=== PATIENT | male | born 1970 | race American Indian/Alaskan Native ===

== ENCOUNTER 2020-05-09 12:15 | Inpatient (IN) | payer BC, OTHER, SELFPAY ==
[2020-05-09] MEDS ORDERED: SODIUM CHLORIDE 0.9% 1000 ML IV SOLN IV ONE (12:45)
[2020-05-09] MEDS ORDERED: dexAMETHasone 20 MG/5 ML VIAL IV ONE (12:46)
[2020-05-09] MEDS ORDERED: ACETAMINOPHEN 500 MG TAB PO ONE (12:46)
--- NOTE | 2020-05-09 12:52 | Emergency Department Report ---
ED Shortness of Breath HPI - General Chief Complaint: Dyspnea/Respdistress Stated Complaint: WEAKNESS,TACYCARDIA Time Seen by Provider: 05/09/20 12:32 Source: EMS Mode of arrival: Wheelchair Limitations: No Limitations - History of Present Illness Initial Comments: Patient is 50 years old male with no significant past medical history. Patient brought to the emergency room via EMS from home for evaluation of shortness of breath, difficulty breathing and generalized weakness for the last 5 days. Patient found to have oxygen saturation of 76% on room air improved to 86% on 4 L. Patient stated that he was diagnosed with COVID-19 2 days ago. Patient found to be febrile with a temperature of 103, tachycardic with oxygen saturation of 88% on nonrebreather. Sepsis protocol immediately initiated and patient started on high flow oxygen, normal saline and Tylenol. MD Complaint: shortness of breath, cough -: days(s) (5) Severity: moderate Improves With: oxygen Context: recent URI Treatments Prior to Arrival: oxygen - Related Data Home Medications Medication Instructions Recorded Confirmed Last Taken No Known Home Medications [No 05/09/20 05/09/20 Unknown Reported Home Medications] Allergies Allergy/AdvReac Type Severity Reaction Status Date / Time No Known Allergies Allergy Unverified 05/09/20 14:23 ED Review of Systems ROS: Stated complaint: WEAKNESS,TACYCARDIA Other details as noted in HPI Comment: All other systems reviewed and negative Constitutional: denies: chills, fever Respiratory: cough, shortness of breath, SOB with exertion. denies: wheezing Cardiovascular: palpitations. denies: chest pain Gastrointestinal: denies: abdominal pain, nausea, vomiting Musculoskeletal: denies: back pain Neurological: weakness. denies: numbness, paresthesias, confusion, abnormal gait ED Past Medical Hx - Past Medical History Previous Medical History?: No - Social History Smoking Status: Never Smoker Substance Use Type: None - Medications Home Medications: Home Medications Medication Instructions Recorded Confirmed Last Taken Type No Known Home Medications [No 05/09/20 05/09/20 Unknown History Reported Home Medications] ED Physical Exam - General Limitations: No Limitations General appearance: alert, in distress - Head Head exam: Present: atraumatic, normocephalic, normal inspection - Eye Eye exam: Present: normal appearance, PERRL - ENT ENT exam: Present: mucous membranes dry - Neck Neck exam: Present: normal inspection, full ROM. Absent: tenderness, meningismus - Respiratory Respiratory exam: Present: respiratory distress, rales. Absent: wheezes, rhonchi, stridor, accessory muscle use, decreased breath sounds, prolonged expiratory - Cardiovascular Cardiovascular Exam: Present: tachycardia - GI/Abdominal GI/Abdominal exam: Present: soft, normal bowel sounds. Absent: distended, tenderness, guarding, rebound, rigid, organomegaly, mass, bruit, pulsatile mass, hernia - Extremities Exam Extremities exam: Present: normal inspection, full ROM, normal capillary refill. Absent: tenderness, pedal edema, calf tenderness - Back Exam Back exam: Present: normal inspection, full ROM. Absent: CVA tenderness (R), CVA tenderness (L) - Neurological Exam Neurological exam: Present: alert, oriented X3, CN II-XII intact, normal gait, reflexes normal - Psychiatric Psychiatric exam: Present: normal mood - Skin Skin exam: Present: warm, intact, normal color ED Course Vital Signs 05/09/20 05/09/20 05/09/20 12:34 12:37 12:45 Temperature 102.7 F H 102.7 F H Pulse Rate 130 H 133 H Respiratory 30 H 32 H Rate Blood Pressure Blood Pressure 107/55 [Right] O2 Sat by Pulse 80 L 63 L 88 Oximetry 05/09/20 05/09/20 05/09/20 13:01 13:31 14:15 Temperature Pulse Rate 127 H 118 H 113 H Respiratory 28 H 50 H 43 H Rate Blood Pressure 102/55 100/59 100/60 Blood Pressure [Right] O2 Sat by Pulse 94 91 86 Oximetry 05/09/20 05/09/20 05/09/20 14:31 15:45 16:01 Temperature Pulse Rate 108 H 105 H 105 H Respiratory 21 40 H 45 H Rate Blood Pressure 105/64 109/64 109/64 Blood Pressure [Right] O2 Sat by Pulse 91 87 89 Oximetry 05/09/20 05/09/20 05/09/20 16:11 16:21 16:31 Temperature Pulse Rate 105 H 106 H 104 H Respiratory 43 H 47 H 50 H Rate Blood Pressure 109/64 109/64 109/64 Blood Pressure [Right] O2 Sat by Pulse 89 87 87 Oximetry 05/09/20 05/09/20 05/09/20 16:41 16:51 17:01 Temperature Pulse Rate 104 H 104 H 104 H Respiratory 45 H 45 H 45 H Rate Blood Pressure 109/64 109/64 109/64 Blood Pressure [Right] O2 Sat by Pulse 90 90 91 Oximetry ED Medical Decision Making - Lab Data Result diagrams: 05/10/20 10:32 05/10/20 10:32 - Radiology Data Radiology results: report reviewed - Medical Decision Making Patient is 50 years old male with no significant past medical history. Patient brought to the emergency room via EMS from home for evaluation of shortness of breath, difficulty breathing and generalized weakness for the last 5 days. Patient found to have oxygen saturation of 76% on room air improved to 86% on 4 L. Patient stated that he was diagnosed with COVID-19 2 days ago. Patient found to be febrile with a temperature of 103, tachycardic with oxygen saturation of 88% on nonrebreather. Sepsis protocol immediately initiated and patient started on high flow oxygen, normal saline and Tylenol. Chest x-ray showed patchy infiltrates on both lungs consistent with infectious process. Patient started on Rocephin and Zithromax. Patient received normal saline. Patient also given Decadron 10 mg IV. I discussed the patient with Dr. Houser, he agreed to admit the patient to medical service for further management. Critical Care Time: Yes Critical care time in (mins) excluding proc time.: 30 Critical care attestation.: If time is entered above; I have spent that time in minutes in the direct care of this critically ill patient, excluding procedure time. ED Disposition Clinical Impression: Acute respiratory failure due to COVID-19, Bilateral pneumonia, Acute renal failure Disposition: OP ADMIT IP TO THIS HOSP Is pt being admited?: Yes Condition: Stable
[2020-05-09 13:08] LABS: Basophils % (Auto) 0.4 % (0.0-1.8); Hemoglobin 14.4 gm/dl (11.8-15.2); Lymphocytes # (Auto) 0.8 K/mm3 (1.2-5.4); Lymphocytes % (Auto) 6.9 % (13.4-35.0); Mean Corpuscular HGB Conc 35 % (32-34); Mean Corpuscular Volume 96 fl (84-94); Monocytes # (Auto) 0.6 K/mm3 (0.0-0.8); Monocytes % (Auto) 5.2 % (0.0-7.3); Platelet Count 231 K/mm3 (140-440); Red Blood Count 4.28 M/mm3 (3.65-5.03); Red Cell Distribution Width 13.2 % (13.2-15.2)
[2020-05-09] MEDS ORDERED: cefTRIAXone/NS 1 GM/50 ML 1 GM/50 ML BAG IV ONE (13:10)
[2020-05-09] MEDS ORDERED: AZITHROMYCIN 500 MG in SODIUM CHLORIDE 0.9% 250ML 250 ML IV ONE (13:10)
--- NOTE | 2020-05-09 13:18 | XRay Report ---
CHEST 1 VIEW 05/09/2020 12:48 PM INDICATION / CLINICAL INFORMATION: Dyspnea. COMPARISON: None available. FINDINGS: SUPPORT DEVICES: None. HEART / MEDIASTINUM: No significant abnormality. LUNGS / PLEURA: There are patchy hazy bilateral pulmonary opacities. No pneumothorax. ADDITIONAL FINDINGS: No significant additional findings. IMPRESSION: 1. Patchy hazy bilateral pulmonary opacities could reflect developing infectious process versus edema . Signer Name: Lance Lynch MD Signed: 05/09/2020 1:13 PM Workstation Name: [id number]
[2020-05-09 13:27] LABS: Calcium 8.4 mg/dL (8.4-10.2)
[2020-05-09 13:31] LABS: Bilirubin,Direct 1.7 mg/dL (0-0.2)
--- NOTE | 2020-05-09 13:36 | History and Physical Report ---
History of Present Illness Chief complaint: I cannot breathe History of present illness: 50 YO Male with Obesity, ETOH Dependence presents to ED for evaluation. Patient states that he has experienced shortness of breath, generalized weakness, fatigue, malaise, body aches, decreased exercise tolerance over the past 5 days with persistently worsening symptoms over the same timeframe. EMS was notified and upon arrival the patient was found to be in distress with a pulse oximetry of 76% on room air as well as fever to 103 F. Patient was placed on supplemental oxygen and subsequently transported to [facility] for further care and evaluation. Patient seen and evaluated in the emergency department. All lab and imaging studies reviewed. Patient underwent chest x-ray and was found to have bilateral pneumonia. Patient also found to have a pulse oximetry of 86% on 4 L nasal cannula. Patient initiated on a high flow submental oxygen with improvement of pulse oximetry. Patient admitted to medical floor and initiated on pneumonia protocol as well as COVID-19 protocol. Patient also found to have acute kidney injury as well as elevated liver function test suspected secondary to alcohol dependence. Patient denies chills, chest pain, palpitations, skin rash, recent ill contacts. Patient reports being diagnosed with coronavirus 2 days ago. No prior admission for review. No medication listed at time of admis lili for reconciliation. Past History Past Medical History: other (See HPI) Past Surgical History: No surgical history, Other (Reviewed) Social history: single, alcohol abuse Family history: diabetes, hypertension Medications and Allergies Allergies Allergy/AdvReac Type Severity Reaction Status Date / Time No Known Allergies Allergy Unverified 05/09/20 14:23 Active Meds: Active Medications Azithromycin 500 mg/ Sodium (Chloride) 250 mls @ 250 mls/hr IV ONCE ONE; Protocol Stop: 05/09/20 14:09 Ceftriaxone Sodium (Rocephin/Ns 1 Gm/50 Ml) 1 gm in 50 mls @ 100 mls/hr IV ONCE ONE; Protocol Stop: 05/09/20 13:39 Review of Systems Constitutional: fever, fatigue, weakness, malaise, lethargy Ears, nose, mouth and throat: no ear pain, no ear discharge, no tinnitis, no decreased hearing, no nose pain Cardiovascular: no chest pain, no orthopnea, no palpitations, no rapid/irregular heart beat Respiratory: cough, cough with sputum, shortness of breath, no hemoptysis Gastrointestinal: no abdominal pain, no nausea, no vomiting, no diarrhea, no constipation Genitourinary Male: no hematuria, no flank pain, no discharge, no urinary frequency, no urinary hesitancy Rectal: no pain, no incontinence, no bleeding Musculoskeletal: no neck stiffness, no neck pain, no shooting arm pain, no arm n umbness/tingling, no low back pain, no shooting leg pain Integumentary: no rash, no pruritis, no redness, no sores, no wounds Neurological: no head injury, no transient paralysis, no paralysis, no weakness, no parathesias, no numbness, no tingling Psychiatric: no anxiety, no memory loss, no change in sleep habits, no insomnia, no hypersomnia Endocrine: no cold intolerance, no heat intolerance, no polyphagia, no excessive thirst, no polyuria, no nocturia Hematologic/Lymphatic: no easy bruising, no easy bleeding, no lymphadenopathy, no lymphedema Allergic/Immunologic: no urticaria, no allergic rhinitis, no persistent infections, no anaphylaxis Exam - Constitutional Vitals: Temp Pulse Resp BP Pulse Ox 102.7 F H 127 H 28 H 102/55 94 05/09/20 12:45 05/09/20 13:01 05/09/20 13:01 05/09/20 13:01 05/09/20 13:01 General appearance: Present: mild distress, obese - EENT Eyes: Present: PERRL ENT: hearing intact, clear oral mucosa - Neck Neck: Present: supple, normal ROM - Respiratory Respiratory effort: labored, accessory muscle use Respiratory: bilateral: diminished, rhonchi - Cardiovascular Heart Sounds: Present: S1 & S2. Absent: rub, click - Extremities Extremities: pulses symmetrical, No edema Peripheral Pulses: within normal limits - Abdominal General gastrointestinal: Present: soft, non-tender, non-distended, normal bowel sounds Male genitourinary: Present: normal - Integumentary Integumentary: Present: clear, warm, dry - Musculoskeletal Musculoskeletal: generalized weakness - Psychiatric Psychiatric: appropriate mood/affect, intact judgment & insight, agitated - Neurologic Neurologic: CNII-XII intact, moves all extremities Results - Labs CBC & Chem 7: 05/09/20 12:59 05/09/20 14:20 Labs: Abnormal lab results 1105/09/20 05/09/20 Range/Units 12:59 12:59 12:59 WBC 11.8 H (4.5-11.0) K/mm3 MCV 96 H (84-94) fl MCH 34 H (28-32) pg MCHC 35 H (32-34) % Lymph % (Auto) 6.9 L (13.4-35.0) % Lymph # (Auto) 0.8 L (1.2-5.4) K/mm3 Seg Neutrophils % 87.5 H (40.0-70.0) % Seg Neutrophils # 10.3 H (1.8-7.7) K/mm3 D-Dimer (0-234) ng/mlDDU Sodium 130 L (137-145) mmol/L Potassium 3.5 L (3.6-5.0) mmol/L Chloride 86.4 L (98-107) mmol/L BUN 33 H (9-20) mg/dL Creatinine 2.3 H (0.8-1.3) mg/dL Glucose 156 H (75-100) mg/dL Lactic Acid (0.7-2.0) mmol/L Total Bilirubin 3.40 H (0.1-1.2) mg/dL Direct Bilirubin 1.7 H (0-0.2) mg/dL AST 385 H (5-40) units/L ALT 134 H (7-56) units/L Albumin 3.0 L (3.9-5) g/dL 05/09/20 05/09/20 05/09/20 Range/Units 12:59 12:59 12:59 WBC (4.5-11.0) K/mm3 MCV (84-94) fl MCH (28-32) pg MCHC (32-34) % Lymph % (Auto) (13.4-35.0) % Lymph # (Auto) (1.2-5.4) K/mm3 Seg Neutrophils % (40.0-70.0) % Seg Neutrophils # (1.8-7.7) K/mm3 D-Dimer 3242.51 H (0-234) ng/mlDDU Sodium (137-145) mmol/L Potassium (3.6-5.0) mmol/L Chloride (98-107) mmol/L BUN (9-20) mg/dL Creatinine (0.8-1.3) mg/dL Glucose 158 H (75-100) mg/dL Lactic Acid 3.50 H* (0.7-2.0) mmol/L Total Bilirubin (0.1-1.2) mg/dL Direct Bilirubin (0-0.2) mg/dL AST (5-40) units/L ALT (7-56) units/L Albumin (3.9-5) g/dL Assessment and Plan - Patient Problems (1) Acute hypoxemic respiratory failure Current Visit: Yes Status: Acute Plan to address problem: Supplemental oxygen, nebulizer therapy, pulse oximetry, chest x-ray, high flow supplemental oxygen, noninvasive positive pressure ventilation as clinically indicated (2) Bilateral pneumonia Current Visit: Yes Status: Acute Plan to address problem: Pneumonia protocol: Chest x-ray, CBC, CMP, supplemental oxygen, nebulizer therapy, IV antibiotic therapy, blood culture, (3) Suspected 2019 novel coronavirus infection Current Visit: Yes Status: Acute Plan to address problem: Coronavirus protocol: IV steroid therapy, IV antibiotic therapy, coronavirus PCR ordered and is pending at time of admission, isolation precautions, contact precautions, prone positioning while in bed, ambulation 3 times daily and as needed, pulmonary toilet. (4) Acute kidney injury (SEN) with acute tubular necrosis (ATN) Current Visit: Yes Status: Acute Plan to address problem: BMP, monitor urine output every shift, supportive care, encourage free water intake. Monitor fluid balance to avoid fluid overload in patient with suspected coronavirus infection. (5) Alcohol dependence Current Visit: Yes Status: Acute Qualifiers: Substance use status: uncomplicated Qualified Code(s): F10.20 - Alcohol dependence, uncomplicated Plan to address problem: Thiamine, folic acid, multivitamin, CIWA protocol. (6) Elevated liver function tests Current Visit: Yes Status: Acute Plan to address problem: Suspected secondary to alcoholic liver disease. Supportive care, alcohol cessation, patient counseled. (7) DVT prophylaxis Current Visit: Yes Status: Acute Plan to address problem: SCD to bilateral lower extremities while in bed, hold anticoagulation now due to elevated liver function test.
[2020-05-09] MEDS ORDERED: ONDANSETRON 4 MG/2 ML INJ IV PRN (13:37)
[2020-05-09 14:57] LABS: C-Reactive Protein 33.5 mg/dL (0.00-1.30)
[2020-05-09] MEDS ORDERED: THIAMINE 100 MG TAB PO ONE (15:36)
[2020-05-09] MEDS ORDERED: MULTIVITAMINS ,THERAPEUTIC TAB PO ONE ×2 (15:36→16:05)
[2020-05-09] MEDS ORDERED: methylPREDNISolone Sod Succinate 40 MG/1 ML INJ ONE (16:05)
[2020-05-09] MEDS ORDERED: FOLIC ACID 1 MG TAB ONE (16:05)
[2020-05-09] MEDS ORDERED: THIAMINE 100 MG TAB ONE (16:07)
[2020-05-09] MEDS: methylPREDNISolone Sod Succinate 40 MG/1 ML INJ IV SCH (16:09)
[2020-05-09] MEDS: FOLIC ACID 1 MG TAB PO SCH (16:09)
[2020-05-10] MEDS: methylPREDNISolone Sod Succinate 40 MG/1 ML INJ IV SCH ×4 (00:29→23:44)
[2020-05-10 05:15] LABS: Bacteria,Urine 1+ /HPF (Negative); Bilirubin,Urine NEG (Negative); Blood,Urine LG (Negative); Color,Urine Amber (Yellow); Mucus,Urine FEW /HPF
[2020-05-10] MEDS ORDERED: cefTRIAXone/NS 2 GM/100 ML 2 GM/100 ML BAG IV SCH (10:00)
[2020-05-10] MEDS: FOLIC ACID 1 MG TAB PO SCH (10:18)
[2020-05-10 11:00] LABS: Hematocrit 43.2 % (35.5-45.6); Hemoglobin 14.7 gm/dl (11.8-15.2); Mean Corpuscular HGB Conc 34 % (32-34); Mean Corpuscular Volume 97 fl (84-94); Platelet Count 248 K/mm3 (140-440); Red Blood Count 4.44 M/mm3 (3.65-5.03); Red Cell Distribution Width 13.1 % (13.2-15.2)
[2020-05-10 11:15] LABS: Calcium 8.4 mg/dL (8.4-10.2)
[2020-05-10] MEDS ORDERED: AZITHROMYCIN 500 MG in SODIUM CHLORIDE 0.9% 250ML 250 ML IV SCH (12:00)
[2020-05-10 12:28] LABS: Band Neutrophils # (Manual) 0.2 K/mm3; Basophils % (Manual) 0 % (0.0-1.8); Eosinophils % (Manual) 0 % (0.0-4.3); Platelet Clumps Rare; Platelet Estimate Consistent w Auto; RBC Morphology Normal; Total Cells Counted 100
[2020-05-10] MEDS ORDERED: REMDESIVIR 200 MG in SODIUM CHLORIDE 0.9% 250ML 250 ML IV ONE ×2 (15:07→17:00)
--- NOTE | 2020-05-10 16:28 | Progress Note ---
Assessment and Plan -- Acute hypoxemic respiratory failure Cont Supplemental oxygen, nebulizer therapy, due to COVID 19 PNA consult pulmonary -- Novel coronavirus infection with Bilateral pneumonia Coronavirus protocol: IV steroid therapy, IV remdesivir, isolation precautions, contact precautions, prone positioning while in bed, pulmonary toilet. consulted ID --Sepsis, due to COVID 19 PNA cont to treat for COVID -- Acute kidney injury (SEN) likely vasomotor nephropathy cont iv fluid, monitor BMP if no improvement consult Renal -- Alcohol dependence Thiamine, folic acid, multivitamin, CIWA protocol. -- Elevated liver function tests Suspected secondary to alcoholic liver disease. Supportive care, alcohol cessation, patient counseled. -- DVT prophylaxis prophylactic AC with lovenox for elevated D-dimer Brief History: 50 YO Male with Obesity, ETOH Dependence presents to ED for evaluation for shortness of breath, generalized weakness, fatigue, malaise, body aches, decreased exercise tolerance over the past 5 days. EMS was notified and upon arrival the patient was found to be in distress with a pulse oximetry of 76% on room air as well as fever to 103 F. In the ER chest x-ray and was found to have bilateral pneumonia. Patient admitted to medical floor and initiated on pneumonia protocol as well as COVID-19 protocol. Patient reports being diagnosed with coronavirus 2 days ago. 05/10: follow inflammatory markers, consult ID. patient on high flow O2 Subjective Date of service: 05/10/20 Interval history: Patient seen and examined patient on high flow O2 denies chest pain positive for covid 19 Objective - Exam Narrative Exam: General appearance: Present: mild distress, obese - EENT Eyes: Present: PERRL ENT: hearing intact, clear oral mucosa - Neck Neck: Present: supple, normal ROM - Respiratory Respiratory effort: labored, accessory muscle use Respiratory: bilateral: diminished, rhonchi - Cardiovascular Heart Sounds: Present: S1 & S2. Absent: rub, click - Extremities Extremities: pulses symmetrical, No edema Peripheral Pulses: within normal limits - Abdominal General gastrointestinal: Present: soft, non-tender, non-distended, normal bowel sounds Male genitourinary: Present: normal - Integumentary Integumentary: Present: clear, warm, dry - Musculoskeletal Musculoskeletal: generalized weakness - Psychiatric Psychiatric: appropriate mood/affect, intact judgment & insight, agitated - Neurologic Neurologic: CNII-XII intact, moves all extremities - Constitutional Vitals: Vital Signs - 12hr 05/10/20 05/10/20 05/10/20 05:32 05:34 06:09 Temperature 98.9 F Pulse Rate 89 Respiratory 20 Rate Blood Pressure 107/71 O2 Sat by Pulse 96 Oximetry 05/10/20 05/10/20 05/10/20 08:46 11:59 14:41 Temperature 98.3 F Pulse Rate 100 H Respiratory 20 Rate Blood Pressure 129/69 O2 Sat by Pulse 89 91 89 Oximetry - Labs CBC & Chem 7: 05/10/20 10:32 05/10/20 10:32 Labs: Abnormal lab results 05/09/20 05/10/20 05/10/20 Range/Units 15:56 10:32 10:32 WBC 15.4 H (4.5-11.0) K/mm3 MCV 97 H (84-94) fl MCH 33 H (28-32) pg RDW 13.1 L (13.2-15.2) % Seg Neuts % (Manual) 89.0 H (40.0-70.0) % Lymphocytes % (Manual) 8.0 L (13.4-35.0) % Seg Neutrophils # Man 13.7 H (1.8-7.7) K/mm3 POC ABG pO2 57.3 L (83-108) mmHg ABG Oxyhemoglobin 86.3 L (94-98) ABG Sodium 129.9 L (136.0-145.0) mmol/L ABG Glucose 146 H (65-95) mg/dL Sodium 136 L (137-145) mmol/L Chloride 97.4 L (98-107) mmol/L BUN 37 H (9-20) mg/dL Creatinine 1.7 H (0.8-1.3) mg/dL Glucose 209 H (75-100) mg/dL Arterial Blood Glucose 146 H (65-95) mg/dL Arterial Blood Ionized Calcium 3.9 L (4.6-5.3) mg/dL Urine WBC (Auto) (0.0-6.0) /HPF Coronavirus (PCR) (Negative) 05/10/20 05/10/20 Range/Units Unknown Unknown WBC (4.5-11.0) K/mm3 MCV (84-94) fl MCH (28-32) pg RDW (13.2-15.2) % Seg Neuts % (Manual) (40.0-70.0) % Lymphocytes % (Manual) (13.4-35.0) % Seg Neutrophils # Man (1.8-7.7) K/mm3 POC ABG pO2 (83-108) mmHg ABG Oxyhemoglobin (94-98) ABG Sodium (136.0-145.0) mmol/L ABG Glucose (65-95) mg/dL Sodium (137-145) mmol/L Chloride (98-107) mmol/L BUN (9-20) mg/dL Creatinine (0.8-1.3) mg/dL Glucose (75-100) mg/dL Arterial Blood Glucose (65-95) mg/dL Arterial Blood Ionized Calcium (4.6-5.3) mg/dL Urine WBC (Auto) 11.0 H (0.0-6.0) /HPF Coronavirus (PCR) Positive A (Negative)
[2020-05-10] MEDS: SODIUM CHLORIDE 0.9% 50 ML IVPB IV SCH (17:25)
[2020-05-10 20:30] LABS: C-Reactive Protein 24.8 mg/dL (0.00-1.30)
[2020-05-10] MEDS ORDERED: REMDESIVIR 100 MG in SODIUM CHLORIDE 0.9% 250ML 250 ML IV SCH (21:00)
[2020-05-10] MEDS ORDERED: ENOXAPARIN 100 MG/1 ML INJ SUB-Q SCH (22:00)
[2020-05-10] MEDS: ENOXAPARIN 120 MG/0.8 ML INJ SUB-Q SCH (22:30)
--- NOTE | 2020-05-11 07:18 | Consultation ---
History of Present Illness - Reason for Consult Consult date: 05/11/20 COVID Requesting physician: ROSARIO SCHNEIDER - History of Present Illness 50 years old male with history of alcohol dependence, obesity, admitted on 05/09/2020 due to 5-day history of generalized malaise, fatigue, body aches, dyspnea on exertion, cough and shortness of breath. Patient tested positive for COVID-19 2 days before admission. Patient denies any contact with COVID-19 patients. On arrival, temperature 102.7, HR 130, BP 107/55, RR 30, O2 sat down to 80%, then 63%, patient is currently on high flow nasal cannula. Creatinine 2.2. Initial D-dimer 3242, now > 10,000. Ferritin 38,000. AST 388 5. ALT 134. CRP 39. LDH 2166. Lactate 3.5. Procalcitonin 4.4. Chest x-ray shows patchy bilateral infiltrates. SARS-CoV-2 PCR positive. Blood cultures 04/08/2020 no growth today. Review of Systems: reviewed ED and H&P notes. Limited due to PPE conservation strategy Past History Past Medical History: other (See HPI) Past Surgical History: No surgical history, Other (Reviewed) Social history: single, alcohol abuse Family history: diabetes, hypertension Medications and Allergies Allergies Allergy/AdvReac Type Severity Reaction Status Date / Time No Known Allergies Allergy Unverified 05/09/20 14:23 Home Medications Medication Instructions Recorded Confirmed Last Taken Type No Known Home Medications [No 05/09/20 05/09/20 Unknown History Reported Home Medications] Active Meds: Active Medications Acetaminophen (Tylenol) 650 mg PO Q4H PRN PRN Reason: Pain MILD(1-3)/Fever >100.5/KERR Enoxaparin Sodium (Enoxaparin) 110 mg 1 mg/kg (110 mg) SUB-Q Q12HR [facility]; Protocol Last Admin: 05/10/20 22:30 Dose: 110 mg Documented by: Folic Acid (Folvite) 1 mg PO QDAY DESIRE Last Admin: 05/10/20 10:18 Dose: 1 mg Documented by: REMDESIVIR 100 mg/ Sodium (Chloride) 250 mls @ 500 mls/hr IV Q24HR@2100 DESIRE Stop: 05/14/20 21:29 Lorazepam (Ativan) 2 mg IV Q1HR PRN PRN Reason: CIWA-Ar 8-15 Methylprednisolone Sodium Succinate (Solu-Medrol) 40 mg IV Q8H [facility] Last Admin: 05/10/20 23:44 Dose: 40 mg Documented by: Ondansetron HCl (Zofran) 4 mg IV Q8H PRN PRN Reason: Nausea And Vomiting Sodium Chloride (Sodium Chloride Flush Syringe 10 Ml) 10 ml IV BID [facility] Last Admin: 05/10/20 22:53 Dose: 10 ml Documented by: Sodium Chloride (Sodium Chloride Flush Syringe 10 Ml) 10 ml IV PRN PRN PRN Reason: LINE FLUSH Sodium Chloride (Nacl 0.9%) 50 ml IV Q24HR@2100 [facility] Stop: 05/14/20 21:01 Last Admin: 05/10/20 17:25 Dose: 50 ml Documented by: Physical Examination - Physical Exam Narrative exam: Physical Exam: reviewed ED and hospitalist notes, limited due to conservation of PPE and decrease risk of transmission. General appearance: limited due to conservation of PPE Eyes: limited due to conservation of PPE HENT: Atraumatic; limited due to conservation of PPE Lungs: limited due to conservation of PPE CV: limited due to conservation of PPE Abdomen: limited due to conservation of PPE Extremities: limited due to conservation of PPE Skin: limited due to conservation of PPE Psych: limited due to conservation of PPE Neuro: limited due to conservation of PPE - Constitutional Vitals: Vital Signs Temp Pulse Resp BP Pulse Ox 98.5 F 98 H 18 119/66 90 05/11/20 03:54 05/11/20 03:54 05/11/20 03:54 05/11/20 03:54 05/11/20 06:21 Temperature -Last 24 Hours Temperature 98.5 F Temperature 98.1 F Temperature 98.3 F Temperature 98.3 F Results - Labs CBC & Chem 7: 05/10/20 10:32 05/10/20 10:32 Labs: Abnormal lab results 05/10/20 05/10/20 05/10/20 Range/Units 10:32 10:32 18:50 WBC 15.4 H (4.5-11.0) K/mm3 MCV 97 H (84-94) fl MCH 33 H (28-32) pg RDW 13.1 L (13.2-15.2) % Seg Neuts % (Manual) 89.0 H (40.0-70.0) % Lymphocytes % (Manual) 8.0 L (13.4-35.0) % Seg Neutrophils # Man 13.7 H (1.8-7.7) K/mm3 D-Dimer (0-234) ng/mlDDU Sodium 136 L (137-145) mmol/L Chloride 97.4 L (98-107) mmol/L BUN 37 H (9-20) mg/dL Creatinine 1.7 H (0.8-1.3) mg/dL Glucose 209 H (75-100) mg/dL Ferritin > 2000.0 H (30.0-300.0) ng/mL Lactate Dehydrogenase (91-180) units/L C-Reactive Protein (0.00-1.30) mg/dL Coronavirus (PCR) (Negative) 05/10/20 05/10/20 05/10/20 Range/Units 18:50 19:00 Unknown WBC (4.5-11.0) K/mm3 MCV (84-94) fl MCH (28-32) pg RDW (13.2-15.2) % Seg Neuts % (Manual) (40.0-70.0) % Lymphocytes % (Manual) (13.4-35.0) % Seg Neutrophils # Man (1.8-7.7) K/mm3 D-Dimer > 29830 H (0-234) ng/mlDDU Sodium (137-145) mmol/L Chloride (98-107) mmol/L BUN (9-20) mg/dL Creatinine (0.8-1.3) mg/dL Glucose (75-100) mg/dL Ferritin (30.0-300.0) ng/mL Lactate Dehydrogenase 1879 H (91-180) units/L C-Reactive Protein 24.80 H (0.00-1.30) mg/dL Coronavirus (PCR) Positive A (Negative) Assessment and Plan Cultures: Blood culture 04/28/2020 no growth today SARS CoV2 PCR positive Assessment: 50 years old male with history of alcohol dependence and obesity admitted on 05/09/2020 due to 5-day history of generalized malaise, fatigue, body aches, dyspnea exertion, cough and shortness of breath, tested positive for COVID-19 2 days before admission: #Severe sepsis: Present on admission with high fever, tachycardia, hypotension, hypoxia, elevated lactate, SEN; likely due to bilateral pneumonia. #Severe COVID pneumonia: Chest x-ray with bilateral patchy infiltrates. SARS-CoV-2 PCR positive. Inflammatory markers markedly elevated, D-dimer 10,000, ferritin 38,000. Noted elevated procalcitonin likely due to elevated creatinine, however will cover for bacterial component given severe sepsis. #Acute hypoxemic respiratory failure: O2 sats dropped to 63% on admission, currently on high flow nasal cannula 100%, 40 L. #Elevated LFTs: from COVID, however no higher than 10 times normal. #SEN: from COVID, already improving. Recommendations: -Close monitoring consider ICU vs IMCU transfer -Pulmonary consult -Obtain SARS CoV-2 IgG if negative please order COVID convalescent plasma -order stat -Patient started on Solu-Medrol -Patient started on remdesivir total 5 days -Monitor inflammatory markers - ferritin, Ddimer, CRP, LDH -Start ceftriaxone and azithromycin given severe sepsis -Monitor liver function test on Remdesivir -Continue anticoagulation per System Protocol -continue full dose anticoagulation given elevated D-dimer -Obtain lower extremity ultrasound -Consider VQ scan when stable -Prone positioning as possible Very high risk for deterioration and mortality All laboratory, cultures and imaging were reviewed. Will follow Arcelia Acosta MD Infectious Diseases Sales Order Coordinator [facility] ([facility]) M [phone] O [phone]
[2020-05-11] MEDS: methylPREDNISolone Sod Succinate 40 MG/1 ML INJ IV SCH ×3 (08:47→23:22)
[2020-05-11 09:17] LABS: C-Reactive Protein 12.9 mg/dL (0.00-1.30)
[2020-05-11 09:18] LABS: Alanine Aminotransferase 111 units/L (7-56); BUN/Creatinine Ratio 28; Bilirubin,Direct 0.6 mg/dL (0-0.2); Blood Urea Nitrogen 36 mg/dL (9-20); Calcium 8.3 mg/dL (8.4-10.2); Hemolysis Index 2
--- NOTE | 2020-05-11 09:56 | Consultation ---
History of Present Illness Consult date: 05/11/20 Reason for consult: dyspnea, cough History of present illness: 50 years old male with history of alcohol dependence, obesity, admitted on 05/09/2020 due to 5-day history of generalized malaise, fatigue, body aches, dyspnea on exertion, cough and shortness of breath. Patient tested positive for COVID-19 2 days before admission. Patient denies any contact with COVID-19 patients. On arrival, temperature 102.7, HR 130, BP 107/55, RR 30, O2 sat down to 80%, then 63%, patient is currently on high flow nasal cannula. Creatinine 2.2. Initial D-dimer 3242, now > 10,000. Ferritin 38,000. AST 388 5. ALT 134. CRP 39. LDH 2166. Lactate 3.5. Procalcitonin 4.4. Chest x-ray shows patchy bilateral infiltrates. SARS-CoV-2 PCR positive. Blood cultures 04/08/2020 no growth today. Patient alert, awake. Patient is on Vapotherm, FIO2 100% and O2 saturation running 90%. No acute respiratory distress at rest. Patient afebrile and has leukocytosis. Patient is on REMDESIVIR, Methyprednisone, ceftrioxane and zithromax and S/C Lovenox. Patient has no known allergies. Denies smoking. Worked [employer] before retired. Not and has 4 children. Past History Past Medical History: other (See HPI) Past Surgical History: No surgical history, Other (Reviewed) Social history: single, alcohol abuse Family history: diabetes, hypertension Medications and Allergies Allergies Allergy/AdvReac Type Severity Reaction Status Date / Time No Known Allergies Allergy Unverified 05/09/20 14:23 Home Medications Medication Instructions Recorded Confirmed Last Taken Type No Known Home Medications [No 05/09/20 05/09/20 Unknown History Reported Home Medications] Active Meds: Active Medications Acetaminophen (Tylenol) 650 mg PO Q4H PRN PRN Reason: Pain MILD(1-3)/Fever >100.5/KERR Enoxaparin Sodium (Enoxaparin) 110 mg 1 mg/kg (110 mg) SUB-Q Q12HR [facility]; Protocol Last Admin: 05/10/20 22:30 Dose: 110 mg Documented by: Folic Acid (Folvite) 1 mg PO QDAY DESIRE Last Admin: 05/10/20 10:18 Dose: 1 mg Documented by: REMDESIVIR 100 mg/ Sodium (Chloride) 250 mls @ 500 mls/hr IV Q24HR@2100 DESIRE Stop: 05/14/20 21:29 Ceftriaxone Sodium (Rocephin/Ns 2 Gm/100 Ml) 2 gm in 100 mls @ 200 mls/hr IV Q24HR [facility]; Protocol Azithromycin 500 mg/ Sodium (Chloride) 250 mls @ 250 mls/hr IV Q24HR [facility]; Protocol Stop: 05/16/20 09:59 Lorazepam (Ativan) 2 mg IV Q1HR PRN PRN Reason: CIWA-Ar 8-15 Methylprednisolone Sodium Succinate (Solu-Medrol) 40 mg IV Q8H [facility] Last Admin: 05/11/20 08:47 Dose: 40 mg Documented by: Ondansetron HCl (Zofran) 4 mg IV Q8H PRN PRN Reason: Nausea And Vomiting Sodium Chloride (Sodium Chloride Flush Syringe 10 Ml) 10 ml IV BID [facility] Last Admin: 05/10/20 22:53 Dose: 10 ml Documented by: Sodium Chloride (Sodium Chloride Flush Syringe 10 Ml) 10 ml IV PRN PRN PRN Reason: LINE FLUSH Sodium Chloride (Nacl 0.9%) 50 ml IV Q24HR@2100 [facility] Stop: 05/14/20 21:01 Last Admin: 05/10/20 17:25 Dose: 50 ml Documented by: Review of Systems All systems: negative Physical Examination Vital signs: Vital Signs Pulse Ox 80 L 05/09/20 12:34 General appearance: no acute distress, alert Eyes: non-icteric ENT: oropharynx moist Neck: supple, no JVD Effort: mildly labored Ascultation: Bilateral: diminished breath sounds Cardiovascular: regular rate and rhythm Gastrointestinal: normoactive bowel sounds, soft, non-tender Integumentary: normal Extremities: no cyanosis, no edema Musculoskeletal: no deformities Gait: other (Resting in bed.) normal mental status, non-focal exam, pupils equal and round, CN II-XII normal mood appropriate Results - Laboratory Findings CBC and BMP: 05/10/20 10:32 05/11/20 07:30 ABG ABG pH 7.428 (7.320-7.450) 05/09/20 15:56 POC ABG pCO2 34.0 mmHg (32.0-48.0) 05/09/20 15:56 POC ABG pO2 57.3 mmHg (83-108) L 05/09/20 15:56 POC ABG HCO3 22.0 05/09/20 15:56 PT/INR, D-dimer D-Dimer > 2000 ng/mlDDU (0-234) H 05/11/20 07:30 Abnormal lab findings: Abnormal Labs 05/09/20 05/09/20 05/09/20 12:59 12:59 12:59 WBC 11.8 H MCV 96 H MCH 34 H MCHC 35 H RDW Lymph % (Auto) 6.9 L Lymph # (Auto) 0.8 L Seg Neutrophils % 87.5 H Seg Neuts % (Manual) Lymphocytes % (Manual) Seg Neutrophils # 10.3 H Seg Neutrophils # Man D-Dimer POC ABG pO2 ABG Oxyhemoglobin ABG Sodium ABG Glucose Sodium 130 L Potassium 3.5 L Chloride 86.4 L BUN 33 H Creatinine 2.3 H Glucose 156 H Lactic Acid Calcium Ferritin Total Bilirubin 3.40 H Direct Bilirubin 1.7 H AST 385 H ALT 134 H Lactate Dehydrogenase C-Reactive Protein Albumin 3.0 L Arterial Blood Glucose Arterial Blood Ionized Calcium Urine WBC (Auto) Coronavirus (PCR) 05/09/20 05/09/20 05/09/20 12:59 12:59 12:59 WBC MCV MCH MCHC RDW Lymph % (Auto) Lymph # (Auto) Seg Neutrophils % Seg Neuts % (Manual) Lymphocytes % (Manual) Seg Neutrophils # Seg Neutrophils # Man D-Dimer 3242.51 H POC ABG pO2 ABG Oxyhemoglobin ABG Sodium ABG Glucose Sodium Potassium Chloride BUN Creatinine Glucose 158 H Lactic Acid 3.50 H* Calcium Ferritin Total Bilirubin Direct Bilirubin AST ALT Lactate Dehydrogenase 2166 H C-Reactive Protein 39.00 H Albumin Arterial Blood Glucose Arterial Blood Ionized Calcium Urine WBC (Auto) Coronavirus (PCR) 05/09/20 05/09/20 05/09/20 12:59 14:20 14:20 WBC MCV MCH MCHC RDW Lymph % (Auto) Lymph # (Auto) Seg Neutrophils % Seg Neuts % (Manual) Lymphocytes % (Manual) Seg Neutrophils # Seg Neutrophils # Man D-Dimer 2861.78 H POC ABG pO2 ABG Oxyhemoglobin ABG Sodium ABG Glucose Sodium Potassium Chloride BUN Creatinine Glucose Lactic Acid 2.20 H* Calcium Ferritin 76872.0 H Total Bilirubin Direct Bilirubin AST ALT Lactate Dehydrogenase C-Reactive Protein Albumin Arterial Blood Glucose Arterial Blood Ionized Calcium Urine WBC (Auto) Coronavirus (PCR) 05/09/20 05/09/20 05/09/20 14:20 14:20 15:56 WBC MCV MCH MCHC RDW Lymph % (Auto) Lymph # (Auto) Seg Neutrophils % Seg Neuts % (Manual) Lymphocytes % (Manual) Seg Neutrophils # Seg Neutrophils # Man D-Dimer POC ABG pO2 57.3 L ABG Oxyhemoglobin 86.3 L ABG Sodium 129.9 L ABG Glucose 146 H Sodium Potassium Chloride BUN Creatinine Glucose 143 H Lactic Acid Calcium Ferritin 16783.0 H Total Bilirubin Direct Bilirubin AST ALT Lactate Dehydrogenase 1953 H C-Reactive Protein 33.50 H Albumin Arterial Blood Glucose 146 H Arterial Blood Ionized Calcium 3.9 L Urine WBC (Auto) Coronavirus (PCR) 05/10/20 05/10/20 05/10/20 10:32 10:32 18:50 WBC 15.4 H MCV 97 H MCH 33 H MCHC RDW 13.1 L Lymph % (Auto) Lymph # (Auto) Seg Neutrophils % Seg Neuts % (Manual) 89.0 H Lymphocytes % (Manual) 8.0 L Seg Neutrophils # Seg Neutrophils # Man 13.7 H D-Dimer POC ABG pO2 ABG Oxyhemoglobin ABG Sodium ABG Glucose Sodium 136 L Potassium Chloride 97.4 L BUN 37 H Creatinine 1.7 H Glucose 209 H Lactic Acid Calcium Ferritin > 2000.0 H Total Bilirubin Direct Bilirubin AST ALT Lactate Dehydrogenase C-Reactive Protein Albumin Arterial Blood Glucose Arterial Blood Ionized Calcium Urine WBC (Auto) Coronavirus (PCR) 05/10/20 05/10/20 05/10/20 18:50 19:00 Unknown WBC MCV MCH MCHC RDW Lymph % (Auto) Lymph # (Auto) Seg Neutrophils % Seg Neuts % (Manual) Lymphocytes % (Manual) Seg Neutrophils # Seg Neutrophils # Man D-Dimer > 78495 H POC ABG pO2 ABG Oxyhemoglobin ABG Sodium ABG Glucose Sodium Potassium Chloride BUN Creatinine Glucose Lactic Acid Calcium Ferritin Total Bilirubin Direct Bilirubin AST ALT Lactate Dehydrogenase 1879 H C-Reactive Protein 24.80 H Albumin Arterial Blood Glucose Arterial Blood Ionized Calcium Urine WBC (Auto) 11.0 H Coronavirus (PCR) 05/10/20 05/11/20 05/11/20 Unknown 07:30 07:30 WBC MCV MCH MCHC RDW Lymph % (Auto) Lymph # (Auto) Seg Neutrophils % Seg Neuts % (Manual) Lymphocytes % (Manual) Seg Neutrophils # Seg Neutrophils # Man D-Dimer > 2000 H POC ABG pO2 ABG Oxyhemoglobin ABG Sodium ABG Glucose Sodium Potassium Chloride 96.3 L BUN 36 H Creatinine Glucose 161 H Lactic Acid Calcium 8.3 L Ferritin Total Bilirubin 1.50 H Direct Bilirubin 0.6 H AST 178 H ALT 111 H Lactate Dehydrogenase C-Reactive Protein Albumin 3.0 L Arterial Blood Glucose Arterial Blood Ionized Calcium Urine WBC (Auto) Coronavirus (PCR) Positive A 05/11/20 07:30 WBC MCV MCH MCHC RDW Lymph % (Auto) Lymph # (Auto) Seg Neutrophils % Seg Neuts % (Manual) Lymphocytes % (Manual) Seg Neutrophils # Seg Neutrophils # Man D-Dimer POC ABG pO2 ABG Oxyhemoglobin ABG Sodium ABG Glucose Sodium Potassium Chloride BUN Creatinine Glucose Lactic Acid Calcium Ferritin Total Bilirubin Direct Bilirubin AST ALT Lactate Dehydrogenase 1523 H C-Reactive Protein 12.90 H Albumin Arterial Blood Glucose Arterial Blood Ionized Calcium Urine WBC (Auto) Coronavirus (PCR) - Diagnostic Findings Chest x-ray: report reviewed, image reviewed Additional studies: CHEST 1 VIEW 05/09/2020 12:48 PM INDICATION / CLINICAL INFORMATION: Dyspnea. COMPARISON: None available. FINDINGS: SUPPORT DEVICES: None. HEART / MEDIASTINUM: No significant abnormality. LUNGS / PLEURA: There are patchy hazy bilateral pulmonary opacities. No pneumothorax. ADDITIONAL FINDINGS: No significant additional findings. IMPRESSION: 1. Patchy hazy bilateral pulmonary opacities could reflect developing infectious process versus edema. Assessment and Plan 50 years old male with history of alcohol dependence, obesity, admitted on 05/09/2020 due to 5-day history of generalized malaise, fatigue, body aches, dyspnea on exertion, cough and shortness of breath. Patient tested positive for COVID-19 2 days before admission. Patient denies any contact with COVID-19 patients. On arrival, temperature 102.7, HR 130, BP 107/55, RR 30, O2 sat down to 80%, then 63%, patient is currently on high flow nasal cannula. Creatinine 2.2. Initial D-dimer 3242, now > 10,000. Ferritin 38,000. AST 388 5. ALT 134. CRP 39. LDH 2166. Lactate 3.5. Procalcitonin 4.4. Chest x-ray shows patchy bilateral infiltrates. SARS-CoV-2 PCR positive. Blood cultures 04/08/2020 no growth today. Patient alert, awake. Patient is on Vapotherm, FIO2 100% and O2 saturation running 90%. No acute respiratory distress at rest. Patient afebrile and has leukocytosis. Patient is on REMDESIVIR, Methyprednisone, ceftrioxane and zithromax and S/C Lovenox. Patient has no known allergies. Denies smoking. Worked [employer] before retired. Not and has 4 children. - Patient Problems (1) Acute respiratory failure due to COVID-19 Current Visit: Yes Status: Acute Plan to address problem: Recommend Non rebreathing Mask with, FIO2 100% Recommend transfered momitored unit or IC. Continue I/V solumedrol. Convert aerosol treatments to metered dose inhalers. Continue ceftrioxane and zithromax. Continue S/C Lovenox. Continue remdesivir. (2) Bilateral pneumonia Current Visit: Yes Status: Acute Plan to address problem: Continue ceftrioxane and Zithromax. (3) Acute kidney injury (SEN) with acute tubular necrosis (ATN) Current Visit: Yes Status: Acute Plan to address problem: Management as per nephrology. (4) Alcohol dependence Current Visit: Yes Status: Acute Qualifiers: Substance use status: uncomplicated Qualified Code(s): F10.20 - Alcohol dependence, uncomplicated Plan to address problem: Management as per primary care. (5) Elevated liver function tests Current Visit: Yes Status: Acute Plan to address problem: Liver enzymes elevated either from his alcoholic abuse or from COVID 19 infection.
[2020-05-11] MEDS ORDERED: AZITHROMYCIN 500 MG in SODIUM CHLORIDE 0.9% 250ML 250 ML IV SCH (10:00)
[2020-05-11] MEDS ORDERED: AZITHROMYCIN 250 MG TAB PO SCH (10:00)
[2020-05-11] MEDS: FOLIC ACID 1 MG TAB PO SCH (10:09)
[2020-05-11] MEDS: ENOXAPARIN 120 MG/0.8 ML INJ SUB-Q SCH ×2 (10:10→21:46)
[2020-05-11] MEDS ORDERED: FLU VACC QUAD 2020-2021 (6 months +)/PF 60 0.5 ML SYRINGE IM ONE (12:00)
--- NOTE | 2020-05-11 12:10 | Progress Note ---
Assessment and Plan Assessment and plan: -- Acute hypoxemic respiratory failure; Requiring very high flow oxygen Patient has severe COVID-19 bilateral pneumonia Very high inflammatory markers Critically ill with poor prognosis Cont Supplemental oxygen, nebulizer therapy, due to COVID 19 PNA, pulmonary following Pulmonary and ID recommend transfer the patient to ICU for close observation -- Novel coronavirus infection with Bilateral pneumonia Coronavirus protocol: IV steroid therapy, IV remdesivir, isolation precautions, contact precautions, prone positioning while in bed, pulmonary toilet. consulted ID --Severe sepsis, due to COVID 19 PNA cont to treat for COVID -- Acute kidney injury (SEN) , likely vasomotor nephropathy cont iv fluid, monitor BMP, creatinine levels trending down Normal range today, closely monitor if no improvement consult Renal -- Alcohol dependence Thiamine, folic acid, multivitamin, CIWA protocol. -- Elevated liver function tests Suspected secondary to alcoholic liver disease. Supportive care, alcohol cessation, patient counseled. -- DVT prophylaxis prophylactic AC with lovenox for elevated D-dimer We will closely monitor patient and adjust management as needed Plan of care reviewed with the patient and his nurse I also discussed with case management regarding discharge planning Brief History: 50 YO Male with Obesity, ETOH Dependence presents to ED for evaluation for shortness of breath, generalized weakness, fatigue, malaise, body aches, decreased exercise tolerance over the past 5 days. EMS was notified and upon arrival the patient was found to be in distress with a pulse oximetry of 76% on room air as well as fever to 103 F. Patient was noted to have severe COVID-19 bilateral pneumonia, severely hypoxemic with very poor prognosis Patient also has very high inflammatory markers, continue high flow oxygen, will try to transfer to ICU or IMCU for close observation I checked with ICU charge nurse Ms. Rodríguez and requested transfer of this patient to ICU or IMCU History Interval history: I have seen and examined the patient at the bedside today Patient's chart and current medications reviewed Isolation precautions observed, PPE protocols strictly followed Patient is critically ill looking, in mild distress Severe COVID-19 pneumonia Severe hypoxia, requiring continuous high flow oxygen Vital signs noted Hospitalist Physical - Constitutional Vitals: Temp Pulse Resp BP Pulse Ox 98.6 F 98 H 17 116/64 98 05/11/20 11:17 05/11/20 11:17 05/11/20 11:17 05/11/20 11:17 05/11/20 11:17 General appearance: Present: mild distress, well-nourished, obese, other (Hypoxic on high flow oxygen) - EENT Eyes: Present: PERRL, EOM intact - Neck Neck: Present: supple, normal ROM - Respiratory Respiratory effort: normal Respiratory: bilateral: diminished, rhonchi, other, negative: rales, wheezing - Cardiovascular Rhythm: regular Heart Sounds: Present: S1 & S2 - Extremities Extremities: no ischemia, No edema - Abdominal General gastrointestinal: soft, non-tender, non-distended, normal bowel sounds - Integumentary Integumentary: Present: clear, warm - Psychiatric Psychiatric: appropriate mood/affect, cooperative - Neurologic Neurologic: moves all extremities Results - Labs CBC & Chem 7: 05/10/20 10:32 05/11/20 07:30 Labs: Laboratory Last Values WBC 15.4 K/mm3 (4.5-11.0) H 05/10/20 10:32 RBC 4.44 M/mm3 (3.65-5.03) 05/10/20 10:32 Hgb 14.7 gm/dl (11.8-15.2) 05/10/20 10:32 Hct 43.2 % (35.5-45.6) 05/10/20 10:32 MCV 97 fl (84-94) H 05/10/20 10:32 MCH 33 pg (28-32) H 05/10/20 10:32 MCHC 34 % (32-34) 05/10/20 10:32 RDW 13.1 % (13.2-15.2) L 05/10/20 10:32 Plt Count 248 K/mm3 (140-440) 05/10/20 10:32 Lymph % (Auto) 6.9 % (13.4-35.0) L 05/09/20 12:59 [place] % (Auto) 5.2 % (0.0-7.3) 05/09/20 12:59 Eos % (Auto) 0.0 % (0.0-4.3) 05/09/20 12:59 Baso % (Auto) 0.4 % (0.0-1.8) 05/09/20 12:59 Lymph # (Auto) 0.8 K/mm3 (1.2-5.4) L 05/09/20 12:59 [place] # (Auto) 0.6 K/mm3 (0.0-0.8) 05/09/20 12:59 Eos # (Auto) 0.0 K/mm3 (0.0-0.4) 05/09/20 12:59 Baso # (Auto) 0.0 K/mm3 (0.0-0.1) 05/09/20 12:59 Add Manual Diff Complete 05/10/20 10:32 Total Counted 100 05/10/20 10:32 Seg Neutrophils % Staff Analyst 05/10/20 10:32 Seg Neuts % (Manual) 89.0 % (40.0-70.0) H 05/10/20 10:32 Band Neutrophils % 1.0 % 05/10/20 10:32 Lymphocytes % (Manual) 8.0 % (13.4-35.0) L 05/10/20 10:32 Reactive Lymphs % (Man) 0 % 05/10/20 10:32 Monocytes % (Manual) 2.0 % (0.0-7.3) 05/10/20 10:32 Eosinophils % (Manual) 0 % (0.0-4.3) 05/10/20 10:32 Basophils % (Manual) 0 % (0.0-1.8) 05/10/20 10:32 Metamyelocytes % 0 % 05/10/20 10:32 Myelocytes % 0 % 05/10/20 10:32 Promyelocytes % 0 % 05/10/20 10:32 Blast Cells % 0 % 05/10/20 10:32 Nucleated RBC % Not Reportable 05/10/20 10:32 Seg Neutrophils # 10.3 K/mm3 (1.8-7.7) H 05/09/20 12:59 Seg Neutrophils # Man 13.7 K/mm3 (1.8-7.7) H 05/10/20 10:32 Band Neutrophils # 0.2 K/mm3 05/10/20 10:32 Lymphocytes # (Manual) 1.2 K/mm3 (1.2-5.4) 05/10/20 10:32 Abs React Lymphs (Man) 0.0 K/mm3 05/10/20 10:32 Monocytes # (Manual) 0.3 K/mm3 (0.0-0.8) 05/10/20 10:32 Eosinophils # (Manual) 0.0 K/mm3 (0.0-0.4) 05/10/20 10:32 Basophils # (Manual) 0.0 K/mm3 (0.0-0.1) 05/10/20 10:32 Metamyelocytes # 0.0 K/mm3 05/10/20 10:32 Myelocytes # 0.0 K/mm3 05/10/20 10:32 Promyelocytes # 0.0 K/mm3 05/10/20 10:32 Blast Cells # 0.0 K/mm3 05/10/20 10:32 WBC Morphology Not Reportable 05/10/20 10:32 Hypersegmented Neuts Not Reportable 05/10/20 10:32 Hyposegmented Neuts Not Reportable 05/10/20 10:32 Hypogranular Neuts Not Reportable 05/10/20 10:32 Smudge Cells Not Reportable 05/10/20 10:32 Toxic Granulation Not Reportable 05/10/20 10:32 Toxic Vacuolation Not Reportable 05/10/20 10:32 Dohle Bodies Not Reportable 05/10/20 10:32 Pelger-Huet Anomaly Not Reportable 05/10/20 10:32 Jason Rods Not Reportable 05/10/20 10:32 Platelet Estimate Consistent w auto 05/10/20 10:32 Clumped Platelets Rare 05/10/20 10:32 Plt Clumps, EDTA Not Reportable 05/10/20 10:32 Large Platelets Not Reportable 05/10/20 10:32 Giant Platelets Not Reportable 05/10/20 10:32 Platelet Satelliting Not Reportable 05/10/20 10:32 Plt Morphology Comment Not Reportable 05/10/20 10:32 RBC Morphology Normal 05/10/20 10:32 Dimorphic RBCs Not Reportable 05/10/20 10:32 Polychromasia Not Reportable 05/10/20 10:32 Hypochromasia Not Reportable 05/10/20 10:32 Poikilocytosis Not Reportable 05/10/20 10:32 Anisocytosis Not Reportable 05/10/20 10:32 Microcytosis Not Reportable 05/10/20 10:32 Macrocytosis Not Reportable 05/10/20 10:32 Spherocytes Not Reportable 05/10/20 10:32 Pappenheimer Bodies Not Reportable 05/10/20 10:32 Sickle Cells Not Reportable 05/10/20 10:32 Target Cells Not Reportable 05/10/20 10:32 Tear Drop Cells Not Reportable 05/10/20 10:32 Ovalocytes Not Reportable 05/10/20 10:32 Helmet Cells Not Reportable 05/10/20 10:32 Sinclair-Emhouse Bodies Not Reportable 05/10/20 10:32 [place] Rings Not Reportable 05/10/20 10:32 [place] Cells Not Reportable 05/10/20 10:32 Bite Cells Not Reportable 05/10/20 10:32 Crenated Cell Not Reportable 05/10/20 10:32 Elliptocytes Not Reportable 05/10/20 10:32 Acanthocytes (Spur) Not Reportable 05/10/20 10:32 Rouleaux Not Reportable 05/10/20 10:32 Hemoglobin C Crystals Not Reportable 05/10/20 10:32 Schistocytes Not Reportable 05/10/20 10:32 Malaria parasites Not Reportable 05/10/20 10:32 Josue Bodies Not Reportable 05/10/20 10:32 Hem Pathologist Commnt No 05/10/20 10:32 D-Dimer > 2000 ng/mlDDU (0-234) H 05/11/20 07:30 ABG pH 7.428 (7.320-7.450) 05/09/20 15:56 POC ABG pCO2 34.0 mmHg (32.0-48.0) 05/09/20 15:56 POC ABG pO2 57.3 mmHg (83-108) L 05/09/20 15:56 POC ABG HCO3 22.0 05/09/20 15:56 POC ABG Base Excess -1.7 05/09/20 15:56 ABG Hemoglobin 13.7 (12.0-17.5) 05/09/20 15:56 ABG Oxyhemoglobin 86.3 (94-98) L 05/09/20 15:56 ABG Methemoglobin 0.3 (0.0-1.5) 05/09/20 15:56 ABG Sodium 129.9 mmol/L (136.0-145.0) L 05/09/20 15:56 ABG Potassium 3.4 mmol/L (3.40-4.50) 05/09/20 15:56 ABG Chloride 100.0 mmol/L (98-107) 05/09/20 15:56 ABG Glucose 146 mg/dL (65-95) H 05/09/20 15:56 Carboxyhemoglobin 1.3 (0.5-1.5) 05/09/20 15:56 FiO2 100 05/09/20 15:56 Sodium 137 mmol/L (137-145) 05/11/20 07:30 Potassium 3.6 mmol/L (3.6-5.0) 05/11/20 07:30 Chloride 96.3 mmol/L (98-107) L 05/11/20 07:30 Carbon Dioxide 29 mmol/L (22-30) 05/11/20 07:30 Anion Gap 15 mmol/L 05/11/20 07:30 BUN 36 mg/dL (9-20) H 05/11/20 07:30 Creatinine 1.3 mg/dL (0.8-1.3) 05/11/20 07:30 Estimated GFR > 60 ml/min 05/11/20 07:30 BUN/Creatinine Ratio 28 % 05/11/20 07:30 Glucose 161 mg/dL (75-100) H 05/11/20 07:30 Lactic Acid 1.80 mmol/L (0.7-2.0) 05/09/20 Unknown Calcium 8.3 mg/dL (8.4-10.2) L 05/11/20 07:30 Ferritin 81997.0 ng/mL (30.0-300.0) H 05/11/20 07:30 Total Bilirubin 1.50 mg/dL (0.1-1.2) H 05/11/20 07:30 Direct Bilirubin 0.6 mg/dL (0-0.2) H 05/11/20 07:30 Indirect Bilirubin 0.9 mg/dL 05/11/20 07:30 AST 178 units/L (5-40) H 05/11/20 07:30 ALT 111 units/L (7-56) H 05/11/20 07:30 Alkaline Phosphatase 85 units/L (35-129) 05/11/20 07:30 Lactate Dehydrogenase 1523 units/L (91-180) H 05/11/20 07:30 C-Reactive Protein 12.90 mg/dL (0.00-1.30) H 05/11/20 07:30 Total Protein 7.0 g/dL (6.3-8.2) 05/11/20 07:30 Albumin 3.0 g/dL (3.9-5) L 05/11/20 07:30 Albumin/Globulin Ratio 0.8 % 05/11/20 07:30 Procalcitonin 4.47 ng/mL (<0.15) 05/09/20 12:59 Arterial Blood Glucose 146 mg/dL (65-95) H 05/09/20 15:56 Arterial Blood Ionized Calcium 3.9 mg/dL (4.6-5.3) L 05/09/20 15:56 Urine Color Fauzia (Yellow) 05/10/20 Unknown Urine Turbidity Clear (Clear) 05/10/20 Unknown Urine pH 5.0 (5.0-7.0) 05/10/20 Unknown Ur Specific [place] 1.019 (1.003-1.030) 05/10/20 Unknown Urine Protein 100 mg/dl mg/dL (Negative) 05/10/20 Unknown Urine Glucose (UA) Neg mg/dL (Negative) 05/10/20 Unknown Urine Ketones Neg mg/dL (Negative) 05/10/20 Unknown Urine Blood Lg (Negative) 05/10/20 Unknown Urine Nitrite Neg (Negative) 05/10/20 Unknown Urine Bilirubin Neg (Negative) 05/10/20 Unknown Urine Urobilinogen 2.0 mg/dL (<2.0) 05/10/20 Unknown Ur Leukocyte Esterase Neg (Negative) 05/10/20 Unknown Urine WBC (Auto) 11.0 /HPF (0.0-6.0) H 05/10/20 Unknown Urine RBC (Auto) 2.0 /HPF (0.0-6.0) 05/10/20 Unknown U Epithel Cells (Auto) 1.0 /HPF (0-13.0) 05/10/20 Unknown Urine Bacteria (Auto) 1+ /HPF (Negative) 05/10/20 Unknown Urine Mucus Few /HPF 05/10/20 Unknown Plasma/Serum Alcohol < 0.01 % (0-0.07) 05/09/20 14:20 Coronavirus (PCR) Positive (Negative) A 05/10/20 Unknown Microbiology: Microbiology 05/10/20 Unknown Urine,Clean Catch Urine Culture - Final 05/09/20 13:02 Peripheral/Venous Blood Culture - Preliminary NO GROWTH AFTER 24 HOURS 05/09/20 12:59 Peripheral/Venous Blood Culture - Preliminary NO GROWTH AFTER 24 HOURS Cantor/IV: Voiding Method Urinal IV Catheter Type [Left Peripheral IV Antecubital] Active Medications - Current Medications Current Medications: Generic Name Dose Route Start Last Admin Trade Name Freq PRN Reason Stop Dose Admin Acetaminophen 650 mg 05/09/20 13:37 Tylenol PO Q4H PRN Pain MILD(1-3)/Fever >100.5/KERR Enoxaparin Sodium 110 mg 05/10/20 22:00 05/11/20 10:10 Enoxaparin 1 mg/kg (110 mg) 110 mg SUB-Q Administration Q12HR [facility] Protocol Folic Acid 1 mg 05/09/20 15:36 05/11/20 10:09 Folvite PO 1 mg QDAY DESIRE Administration REMDESIVIR 100 mg/ Sodium 250 mls @ 500 mls/hr 05/11/20 21:00 Chloride IV 05/14/20 21:29 Q24HR@2100 DESIRE Ceftriaxone Sodium 2 gm in 100 mls @ 200 mls/hr 05/11/20 10:00 Rocephin/Ns 2 Gm/100 Ml IV Q24HR [facility] Protocol Azithromycin 500 mg/ Sodium 250 mls @ 250 mls/hr 05/11/20 10:00 05/11/20 10:54 Chloride IV 05/16/20 09:59 250 mls/hr Q24HR DESIRE Administration Protocol Lorazepam 2 mg 05/09/20 15:40 Ativan IV Q1HR PRN CIWA-Ar 8-15 Methylprednisolone Sodium Succinate 40 mg 05/09/20 16:00 05/11/20 08:47 Solu-Medrol IV 40 mg Q8H DESIRE Administration Ondansetron HCl 4 mg 05/09/20 13:37 Zofran IV Q8H PRN Nausea And Vomiting Sodium Chloride 10 ml 05/09/20 22:00 05/11/20 10:10 Sodium Chloride Flush Syringe 10 Ml IV 10 ml BID DESIRE Administration Sodium Chloride 10 ml 05/09/20 13:37 Sodium Chloride Flush Syringe 10 Ml IV PRN PRN LINE FLUSH Sodium Chloride 50 ml 05/10/20 17:00 05/10/20 17:25 Nacl 0.9% IV 05/14/20 21:01 50 ml Q24HR@2100 DESIRE Administration
[2020-05-11] MEDS: cefTRIAXone/NS 2 GM/100 ML 2 GM/100 ML BAG IV SCH (12:32)
[2020-05-11] MEDS: REMDESIVIR 100 MG in SODIUM CHLORIDE 0.9% 250ML 250 ML IV SCH (21:45)
[2020-05-11] MEDS: SODIUM CHLORIDE 0.9% 50 ML IVPB IV SCH (21:46)
[2020-05-11] MEDS ORDERED: ALBUTEROL 2.5 MG/3 ML NEBU IH ONE (23:54)
[2020-05-12] MEDS ORDERED: ALBUTEROL 2.5 MG/3 ML NEBU IH ONE (01:47)
[2020-05-12] MEDS: methylPREDNISolone Sod Succinate 40 MG/1 ML INJ IV SCH ×2 (08:24→16:55)
[2020-05-12] MEDS: FOLIC ACID 1 MG TAB PO SCH (09:53)
[2020-05-12] MEDS: AZITHROMYCIN 250 MG TAB PO SCH (09:53)
[2020-05-12] MEDS: cefTRIAXone/NS 2 GM/100 ML 2 GM/100 ML BAG IV SCH (09:53)
[2020-05-12] MEDS: ENOXAPARIN 120 MG/0.8 ML INJ SUB-Q SCH ×2 (09:55→22:12)
--- NOTE | 2020-05-12 10:10 | Progress Note ---
Assessment and Plan Assessment and plan: -- Acute hypoxemic respiratory failure; Requiring continuous very high flow oxygen Patient is on 100% nonrebreather continuous Patient has severe COVID-19 bilateral pneumonia Very high inflammatory markers Critically ill with poor prognosis Close monitoring in IMCU/ICU If no improvement intubate -- Novel coronavirus infection with Bilateral pneumonia Coronavirus protocol: IV steroid therapy, IV remdesivir, isolation precautions, contact precautions, prone positioning while in bed, pulmonary toilet. consulted ID --Severe sepsis, due to COVID 19 PNA cont to treat for COVID -- Acute kidney injury (SEN) , likely vasomotor nephropathy Resolved, IV fluids, avoid nephrotoxins -- Alcohol dependence; no episodes of withdrawal symptoms Thiamine, folic acid, multivitamin, CIWA protocol. -- Elevated liver function tests Suspected secondary to alcoholic liver disease. Supportive care, alcohol cessa tion, patient counseled. -- DVT prophylaxis prophylactic AC with lovenox for elevated D-dimer We will closely monitor patient and adjust management as needed Plan of care reviewed with the patient and his nurse Patient is very sick and critically ill with poor prognosis Consults and recommendations noted and appreciated Critical care time 35 minutes The high probability of a clinically significant, sudden or life threatening deterioration of the [Covid pneumonia, ID, respiratory, liver] system(s) required my full and direct attention, intervention and personal management. The aggregate critical care time was [35] minutes. This time is in addition to time spent performing reported procedures but includes the following: [x] Data Review and interpretation [x] Patient assessment and monitoring of vital signs [x] Documentation [x] Medication orders and management Brief History: 50 YO Male with Obesity, ETOH Dependence presents to ED for evaluation for shortness of breath, generalized weakness, fatigue, malaise, body aches, decreased exercise tolerance over the past 5 days. EMS was notified and upon arrival the patient was found to be in distress with a pulse oximetry of 76% on room air as well as fever to 103 F. Patient was noted to have severe COVID-19 bilateral pneumonia, severely hypoxemic with very poor prognosis Patient also has very high inflammatory markers, continue high flow oxygen, closely monitor in IMCU, intubate if no improvement and transfer to ICU as needed History Interval history: I have seen and examined the patient in isolation room this morning in IMCU Covid positive pneumonia, isolation precautions, PPE protocols strictly followed. Patient in mild distress, on continuous 100% nonrebreather oxygen Sleeping easily awakens, complains of generalized weakness and shortness of breath Hospitalist Physical - Constitutional Vitals: Temp Pulse Resp BP Pulse Ox 98.0 F 94 H 28 H 130/66 58 L 05/12/20 04:00 05/12/20 08:50 05/12/20 08:50 05/12/20 08:50 05/12/20 08:20 General appearance: Present: mild distress, well-nourished, obese, other (Hypoxic on high flow oxygen) - EENT Eyes: Present: PERRL, EOM intact - Neck Neck: Present: supple, normal ROM - Respiratory Respiratory effort: normal Respiratory: bilateral: diminished, rhonchi, negative: rales, wheezing - Cardiovascular Rhythm: regular Heart Sounds: Present: S1 & S2 - Extremities Extremities: no ischemia, No edema - Abdominal General gastrointestinal: soft, non-tender, non-distended, normal bowel sounds - Integumentary Integumentary: Present: clear, warm - Psychiatric Psychiatric: appropriate mood/affect, cooperative - Neurologic Neurologic: moves all extremities Results - Labs CBC & Chem 7: 05/10/20 10:32 05/11/20 07:30 Labs: Laboratory Last Values WBC 15.4 K/mm3 (4.5-11.0) H 05/10/20 10:32 RBC 4.44 M/mm3 (3.65-5.03) 05/10/20 10:32 Hgb 14.7 gm/dl (11.8-15.2) 05/10/20 10:32 Hct 43.2 % (35.5-45.6) 05/10/20 10:32 MCV 97 fl (84-94) H 05/10/20 10:32 MCH 33 pg (28-32) H 05/10/20 10:32 MCHC 34 % (32-34) 05/10/20 10:32 RDW 13.1 % (13.2-15.2) L 05/10/20 10:32 Plt Count 248 K/mm3 (140-440) 05/10/20 10:32 Lymph % (Auto) 6.9 % (13.4-35.0) L 05/09/20 12:59 [place] % (Auto) 5.2 % (0.0-7.3) 05/09/20 12:59 Eos % (Auto) 0.0 % (0.0-4.3) 05/09/20 12:59 Baso % (Auto) 0.4 % (0.0-1.8) 05/09/20 12:59 Lymph # (Auto) 0.8 K/mm3 (1.2-5.4) L 05/09/20 12:59 [place] # (Auto) 0.6 K/mm3 (0.0-0.8) 05/09/20 12:59 Eos # (Auto) 0.0 K/mm3 (0.0-0.4) 05/09/20 12:59 Baso # (Auto) 0.0 K/mm3 (0.0-0.1) 05/09/20 12:59 Add Manual Diff Complete 05/10/20 10:32 Total Counted 100 05/10/20 10:32 Seg Neutrophils % [employer] Supervisor 05/10/20 10:32 Seg Neuts % (Manual) 89.0 % (40.0-70.0) H 05/10/20 10:32 Band Neutrophils % 1.0 % 05/10/20 10:32 Lymphocytes % (Manual) 8.0 % (13.4-35.0) L 05/10/20 10:32 Reactive Lymphs % (Man) 0 % 05/10/20 10:32 Monocytes % (Manual) 2.0 % (0.0-7.3) 05/10/20 10:32 Eosinophils % (Manual) 0 % (0.0-4.3) 05/10/20 10:32 Basophils % (Manual) 0 % (0.0-1.8) 05/10/20 10:32 Metamyelocytes % 0 % 05/10/20 10:32 Myelocytes % 0 % 05/10/20 10:32 Promyelocytes % 0 % 05/10/20 10:32 Blast Cells % 0 % 05/10/20 10:32 Nucleated RBC % Not Reportable 05/10/20 10:32 Seg Neutrophils # 10.3 K/mm3 (1.8-7.7) H 05/09/20 12:59 Seg Neutrophils # Man 13.7 K/mm3 (1.8-7.7) H 05/10/20 10:32 Band Neutrophils # 0.2 K/mm3 05/10/20 10:32 Lymphocytes # (Manual) 1.2 K/mm3 (1.2-5.4) 05/10/20 10:32 Abs React Lymphs (Man) 0.0 K/mm3 05/10/20 10:32 Monocytes # (Manual) 0.3 K/mm3 (0.0-0.8) 05/10/20 10:32 Eosinophils # (Manual) 0.0 K/mm3 (0.0-0.4) 05/10/20 10:32 Basophils # (Manual) 0.0 K/mm3 (0.0-0.1) 05/10/20 10:32 Metamyelocytes # 0.0 K/mm3 05/10/20 10:32 Myelocytes # 0.0 K/mm3 05/10/20 10:32 Promyelocytes # 0.0 K/mm3 05/10/20 10:32 Blast Cells # 0.0 K/mm3 05/10/20 10:32 WBC Morphology Not Reportable 05/10/20 10:32 Hypersegmented Neuts Not Reportable 05/10/20 10:32 Hyposegmented Neuts Not Reportable 05/10/20 10:32 Hypogranular Neuts Not Reportable 05/10/20 10:32 Smudge Cells Not Reportable 05/10/20 10:32 Toxic Granulation Not Reportable 05/10/20 10:32 Toxic Vacuolation Not Reportable 05/10/20 10:32 Dohle Bodies Not Reportable 05/10/20 10:32 Pelger-Huet Anomaly Not Reportable 05/10/20 10:32 Jason Rods Not Reportable 05/10/20 10:32 Platelet Estimate Consistent w auto 05/10/20 10:32 Clumped Platelets Rare 05/10/20 10:32 Plt Clumps, EDTA Not Reportable 05/10/20 10:32 Large Platelets Not Reportable 05/10/20 10:32 Giant Platelets Not Reportable 05/10/20 10:32 Platelet Satelliting Not Reportable 05/10/20 10:32 Plt Morphology Comment Not Reportable 05/10/20 10:32 RBC Morphology Normal 05/10/20 10:32 Dimorphic RBCs Not Reportable 05/10/20 10:32 Polychromasia Not Reportable 05/10/20 10:32 Hypochromasia Not Reportable 05/10/20 10:32 Poikilocytosis Not Reportable 05/10/20 10:32 Anisocytosis Not Reportable 05/10/20 10:32 Microcytosis Not Reportable 05/10/20 10:32 Macrocytosis Not Reportable 05/10/20 10:32 Spherocytes Not Reportable 05/10/20 10:32 Pappenheimer Bodies Not Reportable 05/10/20 10:32 Sickle Cells Not Reportable 05/10/20 10:32 Target Cells Not Reportable 05/10/20 10:32 Tear Drop Cells Not Reportable 05/10/20 10:32 Ovalocytes Not Reportable 05/10/20 10:32 Helmet Cells Not Reportable 05/10/20 10:32 Sinclair-[place] Bodies Not Reportable 05/10/20 10:32 Gwynn Rings Not Reportable 05/10/20 10:32 [place] Cells Not Reportable 05/10/20 10:32 Bite Cells Not Reportable 05/10/20 10:32 Crenated Cell Not Reportable 05/10/20 10:32 Elliptocytes Not Reportable 05/10/20 10:32 Acanthocytes (Spur) Not Reportable 05/10/20 10:32 Rouleaux Not Reportable 05/10/20 10:32 Hemoglobin C Crystals Not Reportable 05/10/20 10:32 Schistocytes Not Reportable 05/10/20 10:32 Malaria parasites Not Reportable 05/10/20 10:32 Josue Bodies Not Reportable 05/10/20 10:32 Hem Pathologist Commnt No 05/10/20 10:32 D-Dimer > 2000 ng/mlDDU (0-234) H 05/11/20 07:30 ABG pH 7.428 (7.320-7.450) 05/09/20 15:56 POC ABG pCO2 34.0 mmHg (32.0-48.0) 05/09/20 15:56 POC ABG pO2 57.3 mmHg (83-108) L 05/09/20 15:56 POC ABG HCO3 22.0 05/09/20 15:56 POC ABG Base Excess -1.7 05/09/20 15:56 ABG Hemoglobin 13.7 (12.0-17.5) 05/09/20 15:56 ABG Oxyhemoglobin 86.3 (94-98) L 05/09/20 15:56 ABG Methemoglobin 0.3 (0.0-1.5) 05/09/20 15:56 ABG Sodium 129.9 mmol/L (136.0-145.0) L 05/09/20 15:56 ABG Potassium 3.4 mmol/L (3.40-4.50) 05/09/20 15:56 ABG Chloride 100.0 mmol/L (98-107) 05/09/20 15:56 ABG Glucose 146 mg/dL (65-95) H 05/09/20 15:56 Carboxyhemoglobin 1.3 (0.5-1.5) 05/09/20 15:56 FiO2 100 05/09/20 15:56 Sodium 137 mmol/L (137-145) 05/11/20 07:30 Potassium 3.6 mmol/L (3.6-5.0) 05/11/20 07:30 Chloride 96.3 mmol/L (98-107) L 05/11/20 07:30 Carbon Dioxide 29 mmol/L (22-30) 05/11/20 07:30 Anion Gap 15 mmol/L 05/11/20 07:30 BUN 36 mg/dL (9-20) H 05/11/20 07:30 Creatinine 1.3 mg/dL (0.8-1.3) 05/11/20 07:30 Estimated GFR > 60 ml/min 05/11/20 07:30 BUN/Creatinine Ratio 28 % 05/11/20 07:30 Glucose 161 mg/dL (75-100) H 05/11/20 07:30 Lactic Acid 1.80 mmol/L (0.7-2.0) 05/09/20 Unknown Calcium 8.3 mg/dL (8.4-10.2) L 05/11/20 07:30 Ferritin 23463.0 ng/mL (30.0-300.0) H 05/11/20 07:30 Total Bilirubin 1.50 mg/dL (0.1-1.2) H 05/11/20 07:30 Direct Bilirubin 0.6 mg/dL (0-0.2) H 05/11/20 07:30 Indirect Bilirubin 0.9 mg/dL 05/11/20 07:30 AST 178 units/L (5-40) H 05/11/20 07:30 ALT 111 units/L (7-56) H 05/11/20 07:30 Alkaline Phosphatase 85 units/L (35-129) 05/11/20 07:30 Lactate Dehydrogenase 1523 units/L (91-180) H 05/11/20 07:30 C-Reactive Protein 12.90 mg/dL (0.00-1.30) H 05/11/20 07:30 Total Protein 7.0 g/dL (6.3-8.2) 05/11/20 07:30 Albumin 3.0 g/dL (3.9-5) L 05/11/20 07:30 Albumin/Globulin Ratio 0.8 % 05/11/20 07:30 Procalcitonin 4.47 ng/mL (<0.15) 05/09/20 12:59 Arterial Blood Glucose 146 mg/dL (65-95) H 05/09/20 15:56 Arterial Blood Ionized Calcium 3.9 mg/dL (4.6-5.3) L 05/09/20 15:56 Urine Color Fauzia (Yellow) 05/10/20 Unknown Urine Turbidity Clear (Clear) 05/10/20 Unknown Urine pH 5.0 (5.0-7.0) 05/10/20 Unknown Ur Specific [place] 1.019 (1.003-1.030) 05/10/20 Unknown Urine Protein 100 mg/dl mg/dL (Negative) 05/10/20 Unknown Urine Glucose (UA) Neg mg/dL (Negative) 05/10/20 Unknown Urine Ketones Neg mg/dL (Negative) 05/10/20 Unknown Urine Blood Lg (Negative) 05/10/20 Unknown Urine Nitrite Neg (Negative) 05/10/20 Unknown Urine Bilirubin Neg (Negative) 05/10/20 Unknown Urine Urobilinogen 2.0 mg/dL (<2.0) 05/10/20 Unknown Ur Leukocyte Esterase Neg (Negative) 05/10/20 Unknown Urine WBC (Auto) 11.0 /HPF (0.0-6.0) H 05/10/20 Unknown Urine RBC (Auto) 2.0 /HPF (0.0-6.0) 05/10/20 Unknown U Epithel Cells (Auto) 1.0 /HPF (0-13.0) 05/10/20 Unknown Urine Bacteria (Auto) 1+ /HPF (Negative) 05/10/20 Unknown Urine Mucus Few /HPF 05/10/20 Unknown Plasma/Serum Alcohol < 0.01 % (0-0.07) 05/09/20 14:20 Coronavirus (PCR) Positive (Negative) A 05/10/20 Unknown SARS-CoV-2 IgG Ab Reactive (NonReactive) A 05/11/20 07:30 Microbiology: Microbiology 05/09/20 13:02 Peripheral/Venous Blood Culture - Preliminary NO GROWTH AFTER 48 HOURS 05/09/20 12:59 Peripheral/Venous Blood Culture - Preliminary NO GROWTH AFTER 48 HOURS 05/10/20 Unknown Urine,Clean Catch Urine Culture - Final Cantor/IV: Voiding Method Urinal IV Catheter Type [Left Peripheral IV Antecubital] Active Medications - Current Medications Current Medications: Generic Name Dose Route Start Last Admin Trade Name Freq PRN Reason Stop Dose Admin Acetaminophen 650 mg 05/09/20 13:37 Tylenol PO Q4H PRN Pain MILD(1-3)/Fever >100.5/KERR Azithromycin 500 mg 05/12/20 10:00 05/12/20 09:53 Zithromax PO 05/16/20 09:59 500 mg QDAY [facility] Administration Enoxaparin Sodium 110 mg 05/10/20 22:00 05/12/20 09:55 Enoxaparin 1 mg/kg (110 mg) 110 mg SUB-Q Administration Q12HR [facility] Protocol Folic Acid 1 mg 05/09/20 15:36 05/12/20 09:53 Folvite PO 1 mg QDAY DESIRE Administration REMDESIVIR 100 mg/ Sodium 250 mls @ 500 mls/hr 05/11/20 21:00 05/11/20 21:45 Chloride IV 05/14/20 21:29 500 mls/hr Q24HR@2100 DESIRE Administration Ceftriaxone Sodium 2 gm in 100 mls @ 200 mls/hr 05/11/20 10:00 05/12/20 09:53 Rocephin/Ns 2 Gm/100 Ml IV 200 mls/hr Q24HR DESIRE Administration Protocol Lorazepam 2 mg 05/09/20 15:40 Ativan IV Q1HR PRN CIWA-Ar 8-15 Methylprednisolone Sodium Succinate 40 mg 05/09/20 16:00 11/04/20 08:24 Solu-Medrol IV 40 mg Q8H DESIRE Administration Ondansetron HCl 4 mg 05/09/20 13:37 Zofran IV Q8H PRN Nausea And Vomiting Sodium Chloride 10 ml 05/09/20 22:00 05/12/20 09:55 Sodium Chloride Flush Syringe 10 Ml IV 10 ml BID DESIRE Administration Sodium Chloride 10 ml 05/09/20 13:37 Sodium Chloride Flush Syringe 10 Ml IV PRN PRN LINE FLUSH Sodium Chloride 50 ml 05/10/20 17:00 05/11/20 21:46 Nacl 0.9% IV 05/14/20 21:01 50 ml Q24HR@2100 DESIRE Administration
--- NOTE | 2020-05-12 13:01 | Progress Note ---
Assessment and Plan Cultures: Blood culture 04/28/2020 no growth today SARS CoV2 PCR positive Assessment: 50 years old male with history of alcohol dependence and obesity admitted on 05/09/2020 due to 5-day history of generalized malaise, fatigue, body aches, dyspnea exertion, cough and shortness of breath, tested positive for COVID-19 2 days before admission: #Severe sepsis: Improving; likely due to bilateral pneumonia. #Severe COVID pneumonia: Chest x-ray with bilateral patchy infiltrates. SARS-CoV-2 PCR positive. Inflammatory markers markedly elevated, D-dimer 10,000, ferritin 38,000. Noted elevated procalcitonin likely due to elevated creatinine, however will cover for bacterial component given severe sepsis. #Acute hypoxemic respiratory failure: O2 sats dropped to 63% on admission, currently on high flow nasal cannula 100%, 40 L. #Elevated LFTs: from COVID, however no higher than 10 times normal. #SEN: from COVID, already improving. Recommendations: -Close monitoring -Consider chest CTA rule out PE once creatinine improved -Pulmonary on board -SARS CoV-2 IgG positive patient is NOT a candidate for COVID convalescent plasma -Patient started on Solu-Medrol -Patient started on remdesivir total 5 days -Monitor inflammatory markers - ferritin, Ddimer, CRP, LDH -Continue ceftriaxone total 5 days and azithromycin total 3 days given severe sepsis -Monitor liver function test on Remdesivir -Continue anticoagulation per System Protocol -continue full dose anticoagulation given elevated D-dimer -Follow-up lower extremity ultrasound -Prone positioning as possible Very high risk for deterioration and mortality All laboratory, cultures and imaging were reviewed. Will follow Arcelia Acosta MD Infectious Diseases Skip Locator [facility] ([facility] M [phone] O [phone] Subjective Date of service: 05/12/20 Principal diagnosis: COVID Interval history: Remains on high flow, no desaturation, no fever Objective - Exam Narrative Exam: Physical Exam: reviewed ED and hospitalist notes, limited due to conservation of PPE and decrease risk of transmission. General appearance: limited due to conservation of PPE Eyes: limited due to conservation of PPE HENT: Atraumatic; limited due to conservation of PPE Lungs: limited due to conservation of PPE CV: limited due to conservation of PPE Abdomen: limited due to conservation of PPE Extremities: limited due to conservation of PPE Skin: limited due to conservation of PPE Psych: limited due to conservation of PPE Neuro: limited due to conservation of PPE - Constitutional Vitals: Vital Signs Temp Pulse Resp BP Pulse Ox 98.6 F 84 24 118/65 97 05/12/20 08:00 05/12/20 12:40 05/12/20 12:40 05/12/20 12:40 05/12/20 12:40 Temperature -Last 24 Hours Temperature 98.6 F Temperature 98.0 F Temperature 97.4 F Temperature 98.3 F - Labs CBC & Chem 7: 05/10/20 10:32 05/11/20 07:30
--- NOTE | 2020-05-12 21:10 | Progress Note ---
Assessment and Plan 50 years old male with history of alcohol dependence, obesity, admitted on 05/09/2020 due to 5-day history of generalized malaise, fatigue, body aches, dyspnea on exertion, cough and shortness of breath. Patient tested positive for COVID-19 2 days before admission. Patient denies any contact with COVID-19 patients. On arrival, temperature 102.7, HR 130, BP 107/55, RR 30, O2 sat down to 80%, then 63%, patient is currently on high flow nasal cannula. Creatinine 2.2. Initial D-dimer 3242, now > 10,000. Ferritin 38,000. AST 388 5. ALT 134. CRP 39. LDH 2166. Lactate 3.5. Procalcitonin 4.4. Chest x-ray shows patchy bilateral infiltrates. SARS-CoV-2 PCR positive. Blood cultures 04/08/2020 no growth today. Patient alert, awake. Patient is on Vapotherm, FIO2 100% and O2 saturation running 90%. No acute respiratory distress at rest. Patient afebrile and has leukocytosis. Patient is on REMDESIVIR, Methyprednisone, ceftrioxane and zithromax and S/C Lovenox. Patient has no known allergies. Denies smoking. Worked [employer] before retired. Not and has 4 children. 05/12/20 Patient transfered to [facility] for close monitoring. Patient alert, awake. Resting on Non rebreathing mask, FIO2 100% and O2 saturation running 94%. Patient denies chest pain, shortness of breath or cough. Patient afebrile and has leukocytosis. Patient is on REMDESIVIR, Methyprednisone, ceftrioxane and zithromax and S/C Lovenox. I have seen the patient in [facility]. I spent critical care time of 35 minutes , Reviewing the chart,examining patient, Review labs , chest xray , talking to the respiratory therapy and nursing staff and work out plan of treatment in this critically sick patient. - Patient Problems (1) Acute respiratory failure due to COVID-19 Current Visit: Yes Status: Acute Plan to address problem: Recommend Non rebreathing Mask with, FIO2 100% [facility] Continue I/V solumedrol. Convert aerosol treatments to metered dose inhalers. Continue ceftrioxane and zithromax. Continue S/C Lovenox. Continue remdesivir. (2) Bilateral pneumonia Current Visit: Yes Status: Acute Plan to address problem: Continue ceftrioxane and Zithromax. (3) Acute kidney injury (SEN) with acute tubular necrosis (ATN) Current Visit: Yes Status: Acute Plan to address problem: Management as per nephrology. (4) Alcohol dependence Current Visit: Yes Status: Acute Qualifiers: Substance use status: uncomplicated Qualified Code(s): F10.20 - Alcohol dependence, uncomplicated Plan to address problem: Management as per primary care. (5) Elevated liver function tests Current Visit: Yes Status: Acute Plan to address problem: Liver enzymes elevated either from his alcoholic abuse or from COVID 19 infection. Subjective Date of service: 05/12/20 Principal diagnosis: COVID Interval history: Patient alert, awake. Resting on Non rebreathing mask, FIO2 100% and O2 saturation running 94%. Patient denies chest pain, shortness of breath or cough. Patient afebrile and has leukocytosis. Patient is on REMDESIVIR, Methypre dnisone, ceftrioxane and zithromax and S/C Lovenox. Patient transfered to [facility] for close monitoring. Objective Vital Signs - 12hr 05/12/20 05/12/20 05/12/20 09:10 09:20 09:30 Temperature Pulse Rate 87 90 88 Pulse Rate [ From Monitor] Respiratory 29 H 33 H 34 H Rate Blood Pressure 117/60 117/60 117/60 O2 Sat by Pulse Oximetry 05/12/20 05/12/20 05/12/20 09:40 09:50 10:00 Temperature Pulse Rate 87 83 88 Pulse Rate [ From Monitor] Respiratory 34 H 19 29 H Rate Blood Pressure 117/60 117/60 127/63 O2 Sat by Pulse Oximetry 05/12/20 05/12/20 05/12/20 10:10 10:20 10:30 Temperature Pulse Rate 80 92 H Pulse Rate [ From Monitor] Respiratory Rate Blood Pressure 127/63 127/63 127/63 O2 Sat by Pulse Oximetry 05/12/20 05/12/20 05/12/20 10:40 10:50 11:00 Temperature Pulse Rate 88 88 89 Pulse Rate [ From Monitor] Respiratory 32 H 24 24 Rate Blood Pressure 127/63 127/63 129/65 O2 Sat by Pulse 97 100 98 Oximetry 05/12/20 05/12/20 05/12/20 11:10 11:20 11:30 Temperature Pulse Rate 99 H 96 H 97 H Pulse Rate [ From Monitor] Respiratory 18 17 37 H Rate Blood Pressure 129/65 129/65 129/65 O2 Sat by Pulse 92 92 95 Oximetry 05/12/20 05/12/20 05/12/20 11:40 11:50 12:00 Temperature 98.7 F Pulse Rate 89 87 85 Pulse Rate [ 85 From Monitor] Respiratory 32 H 32 H 32 H Rate Blood Pressure 129/65 129/65 118/65 O2 Sat by Pulse 93 97 93 Oximetry 05/12/20 05/12/20 05/12/20 12:10 12:20 12:30 Temperature Pulse Rate 83 86 86 Pulse Rate [ From Monitor] Respiratory 30 H 21 23 Rate Blood Pressure 118/65 118/65 118/65 O2 Sat by Pulse 95 95 98 Oximetry 05/12/20 05/12/20 05/12/20 12:40 12:50 13:00 Temperature Pulse Rate 84 93 H 82 Pulse Rate [ From Monitor] Respiratory 24 29 H 23 Rate Blood Pressure 118/65 118/65 118/65 O2 Sat by Pulse 97 96 97 Oximetry 05/12/20 05/12/20 05/12/20 13:11 13:21 13:31 Temperature Pulse Rate 78 88 82 Pulse Rate [ From Monitor] Respiratory 21 26 H 25 H Rate Blood Pressure 131/61 131/61 O2 Sat by Pulse 98 100 96 Oximetry 05/12/20 05/12/20 05/12/20 13:41 13:42 13:51 Temperature Pulse Rate 81 86 Pulse Rate [ From Monitor] Respiratory 25 H 22 Rate Blood Pressure 131/61 131/61 O2 Sat by Pulse 97 97 98 Oximetry 05/12/20 05/12/20 05/12/20 14:00 14:11 14:21 Temperature Pulse Rate 85 84 84 Pulse Rate [ From Monitor] Respiratory 17 20 24 Rate Blood Pressure 114/68 114/68 114/68 O2 Sat by Pulse 98 99 97 Oximetry 05/12/20 05/12/20 05/12/20 14:31 14:41 14:51 Temperature Pulse Rate 83 83 86 Pulse Rate [ From Monitor] Respiratory 22 23 15 Rate Blood Pressure 114/68 114/68 114/68 O2 Sat by Pulse 96 97 96 Oximetry 05/12/20 05/12/20 05/12/20 15:00 15:11 15:21 Temperature Pulse Rate 86 85 83 Pulse Rate [ From Monitor] Respiratory 24 21 18 Rate Blood Pressure 118/69 118/69 118/69 O2 Sat by Pulse 95 96 99 Oximetry 05/12/20 05/12/20 05/12/20 15:31 15:41 15:51 Temperature Pulse Rate 91 H 90 89 Pulse Rate [ From Monitor] Respiratory 18 13 16 Rate Blood Pressure 118/69 118/69 118/69 O2 Sat by Pulse 96 94 95 Oximetry 05/12/20 05/12/20 05/12/20 16:00 16:11 16:21 Temperature 98.4 F Pulse Rate 82 96 H 89 Pulse Rate [ 88 From Monitor] Respiratory 24 23 30 H Rate Blood Pressure 124/69 124/69 124/69 O2 Sat by Pulse 98 96 92 Oximetry 05/12/20 05/12/20 05/12/20 16:31 16:41 16:51 Temperature Pulse Rate 88 85 85 Pulse Rate [ From Monitor] Respiratory 34 H 36 H 32 H Rate Blood Pressure 124/69 124/69 124/69 O2 Sat by Pulse 95 92 93 Oximetry 05/12/20 05/12/20 05/12/20 17:00 17:11 17:21 Temperature Pulse Rate 82 87 93 H Pulse Rate [ From Monitor] Respiratory 29 H 35 H 22 Rate Blood Pressure 112/67 112/67 112/67 O2 Sat by Pulse 95 95 100 Oximetry 05/12/20 05/12/20 05/12/20 17:31 17:41 17:51 Temperature Pulse Rate 84 82 84 Pulse Rate [ From Monitor] Respiratory 31 H 34 H 34 H Rate Blood Pressure 112/67 112/67 112/67 O2 Sat by Pulse 93 96 95 Oximetry 05/12/20 05/12/20 05/12/20 18:00 18:11 18:21 Temperature Pulse Rate 79 87 82 Pulse Rate [ From Monitor] Respiratory 29 H 31 H 30 H Rate Blood Pressure 118/63 118/63 118/63 O2 Sat by Pulse 96 97 97 Oximetry 05/12/20 05/12/20 05/12/20 18:31 18:41 18:51 Temperature Pulse Rate 84 84 85 Pulse Rate [ From Monitor] Respiratory 33 H 35 H 35 H Rate Blood Pressure 118/63 118/63 118/63 O2 Sat by Pulse 96 93 95 Oximetry 05/12/20 05/12/20 05/12/20 19:00 19:11 19:21 Temperature Pulse Rate 82 89 84 Pulse Rate [ From Monitor] Respiratory 28 H 21 33 H Rate Blood Pressure 131/73 131/73 131/73 O2 Sat by Pulse 95 95 93 Oximetry 05/12/20 05/12/20 05/12/20 19:31 19:41 20:00 Temperature 98.2 F Pulse Rate 87 83 Pulse Rate [ From Monitor] Respiratory 34 H 33 H Rate Blood Pressure 131/73 131/73 O2 Sat by Pulse 93 96 Oximetry 05/12/20 21:05 Temperature Pulse Rate Pulse Rate [ From Monitor] Respiratory Rate Blood Pressure O2 Sat by Pulse 95 Oximetry Constitutional: no acute distress, alert Eyes: non-icteric ENT: oropharynx moist Neck: supple, no JVD Effort: mildly labored Ascultation: Bilateral: diminished breath sounds Cardiovascular: regular rate and rhythm Gastrointestinal: normoactive bowel sounds, soft, non-tender Integumentary: normal Extremities: no cyanosis, no edema Neurologic: normal mental status, non-focal exam, pupils equal and round, CN II- XII normal Psychiatric: mood appropriate CBC and BMP: 05/10/20 10:32 05/11/20 07:30 ABG, PT/INR, D-dimer: ABG ABG pH 7.428 (7.320-7.450) 05/09/20 15:56 POC ABG pCO2 34.0 mmHg (32.0-48.0) 05/09/20 15:56 POC ABG pO2 57.3 mmHg (83-108) L 05/09/20 15:56 POC ABG HCO3 22.0 05/09/20 15:56 PT/INR, D-dimer D-Dimer > 2000 ng/mlDDU (0-234) H 05/11/20 07:30 Abnormal lab findings: Abnormal Labs 05/09/20 05/09/20 05/09/20 12:59 12:59 12:59 WBC 11.8 H MCV 96 H MCH 34 H MCHC 35 H RDW Lymph % (Auto) 6.9 L Lymph # (Auto) 0.8 L Seg Neutrophils % 87.5 H Seg Neuts % (Manual) Lymphocytes % (Manual) Seg Neutrophils # 10.3 H Seg Neutrophils # Man D-Dimer POC ABG pO2 ABG Oxyhemoglobin ABG Sodium ABG Glucose Sodium 130 L Potassium 3.5 L Chloride 86.4 L BUN 33 H Creatinine 2.3 H Glucose 156 H Lactic Acid Calcium Ferritin Total Bilirubin 3.40 H Direct Bilirubin 1.7 H AST 385 H ALT 134 H Lactate Dehydrogenase C-Reactive Protein Albumin 3.0 L Arterial Blood Glucose Arterial Blood Ionized Calcium Urine WBC (Auto) Coronavirus (PCR) SARS-CoV-2 IgG Ab 05/09/20 05/09/20 05/09/20 12:59 12:59 12:59 WBC MCV MCH MCHC RDW Lymph % (Auto) Lymph # (Auto) Seg Neutrophils % Seg Neuts % (Manual) Lymphocytes % (Manual) Seg Neutrophils # Seg Neutrophils # Man D-Dimer 3242.51 H POC ABG pO2 ABG Oxyhemoglobin ABG Sodium ABG Glucose Sodium Potassium Chloride BUN Creatinine Glucose 158 H Lactic Acid 3.50 H* Calcium Ferritin Total Bilirubin Direct Bilirubin AST ALT Lactate Dehydrogenase 2166 H C-Reactive Protein 39.00 H Albumin Arterial Blood Glucose Arterial Blood Ionized Calcium Urine WBC (Auto) Coronavirus (PCR) SARS-CoV-2 IgG Ab 05/09/20 05/09/20 05/09/20 12:59 14:20 14:20 WBC MCV MCH MCHC RDW Lymph % (Auto) Lymph # (Auto) Seg Neutrophils % Seg Neuts % (Manual) Lymphocytes % (Manual) Seg Neutrophils # Seg Neutrophils # Man D-Dimer 2861.78 H POC ABG pO2 ABG Oxyhemoglobin ABG Sodium ABG Glucose Sodium Potassium Chloride BUN Creatinine Glucose Lactic Acid 2.20 H* Calcium Ferritin 15991.0 H Total Bilirubin Direct Bilirubin AST ALT Lactate Dehydrogenase C-Reactive Protein Albumin Arterial Blood Glucose Arterial Blood Ionized Calcium Urine WBC (Auto) Coronavirus (PCR) SARS-CoV-2 IgG Ab 05/09/20 05/09/20 05/09/20 14:20 14:20 15:56 WBC MCV MCH MCHC RDW Lymph % (Auto) Lymph # (Auto) Seg Neutrophils % Seg Neuts % (Manual) Lymphocytes % (Manual) Seg Neutrophils # Seg Neutrophils # Man D-Dimer POC ABG pO2 57.3 L ABG Oxyhemoglobin 86.3 L ABG Sodium 129.9 L ABG Glucose 146 H Sodium Potassium Chloride BUN Creatinine Glucose 143 H Lactic Acid Calcium Ferritin 77310.0 H Total Bilirubin Direct Bilirubin AST ALT Lactate Dehydrogenase 1953 H C-Reactive Protein 33.50 H Albumin Arterial Blood Glucose 146 H Arterial Blood Ionized Calcium 3.9 L Urine WBC (Auto) Coronavirus (PCR) SARS-CoV-2 IgG Ab 05/10/20 05/10/20 05/10/20 10:32 10:32 18:50 WBC 15.4 H MCV 97 H MCH 33 H MCHC RDW 13.1 L Lymph % (Auto) Lymph # (Auto) Seg Neutrophils % Seg Neuts % (Manual) 89.0 H Lymphocytes % (Manual) 8.0 L Seg Neutrophils # Seg Neutrophils # Man 13.7 H D-Dimer POC ABG pO2 ABG Oxyhemoglobin ABG Sodium ABG Glucose Sodium 136 L Potassium Chloride 97.4 L BUN 37 H Creatinine 1.7 H Glucose 209 H Lactic Acid Calcium Ferritin > 2000.0 H Total Bilirubin Direct Bilirubin AST ALT Lactate Dehydrogenase C-Reactive Protein Albumin Arterial Blood Glucose Arterial Blood Ionized Calcium Urine WBC (Auto) Coronavirus (PCR) SARS-CoV-2 IgG Ab 05/10/20 05/10/20 05/10/20 18:50 19:00 Unknown WBC MCV MCH MCHC RDW Lymph % (Auto) Lymph # (Auto) Seg Neutrophils % Seg Neuts % (Manual) Lymphocytes % (Manual) Seg Neutrophils # Seg Neutrophils # Man D-Dimer > 61976 H POC ABG pO2 ABG Oxyhemoglobin ABG Sodium ABG Glucose Sodium Potassium Chloride BUN Creatinine Glucose Lactic Acid Calcium Ferritin Total Bilirubin Direct Bilirubin AST ALT Lactate Dehydrogenase 1879 H C-Reactive Protein 24.80 H Albumin Arterial Blood Glucose Arterial Blood Ionized Calcium Urine WBC (Auto) 11.0 H Coronavirus (PCR) SARS-CoV-2 IgG Ab 05/10/20 05/11/20 05/11/20 Unknown 07:30 07:30 WBC MCV MCH MCHC RDW Lymph % (Auto) Lymph # (Auto) Seg Neutrophils % Seg Neuts % (Manual) Lymphocytes % (Manual) Seg Neutrophils # Seg Neutrophils # Man D-Dimer > 2000 H POC ABG pO2 ABG Oxyhemoglobin ABG Sodium ABG Glucose Sodium Potassium Chloride 96.3 L BUN 36 H Creatinine Glucose 161 H Lactic Acid Calcium 8.3 L Ferritin Total Bilirubin 1.50 H Direct Bilirubin 0.6 H AST 178 H ALT 111 H Lactate Dehydrogenase C-Reactive Protein Albumin 3.0 L Arterial Blood Glucose Arterial Blood Ionized Calcium Urine WBC (Auto) Coronavirus (PCR) Positive A SARS-CoV-2 IgG Ab 05/11/20 05/11/20 05/11/20 07:30 07:30 07:30 WBC MCV MCH MCHC RDW Lymph % (Auto) Lymph # (Auto) Seg Neutrophils % Seg Neuts % (Manual) Lymphocytes % (Manual) Seg Neutrophils # Seg Neutrophils # Man D-Dimer POC ABG pO2 ABG Oxyhemoglobin ABG Sodium ABG Glucose Sodium Potassium Chloride BUN Creatinine Glucose Lactic Acid Calcium Ferritin 41868.0 H Total Bilirubin Direct Bilirubin AST ALT Lactate Dehydrogenase 1523 H C-Reactive Protein 12.90 H Albumin Arterial Blood Glucose Arterial Blood Ionized Calcium Urine WBC (Auto) Coronavirus (PCR) SARS-CoV-2 IgG Ab Reactive A
[2020-05-12] MEDS: REMDESIVIR 100 MG in SODIUM CHLORIDE 0.9% 250ML 250 ML IV SCH (22:11)
[2020-05-12] MEDS: SODIUM CHLORIDE 0.9% 50 ML IVPB IV SCH (22:12)
[2020-05-13] MEDS: methylPREDNISolone Sod Succinate 40 MG/1 ML INJ IV SCH ×4 (00:25→23:14)
[2020-05-13 06:01] LABS: Alanine Aminotransferase 119 units/L (7-56); BUN/Creatinine Ratio 30; Blood Urea Nitrogen 30 mg/dL (9-20); Calcium 8.4 mg/dL (8.4-10.2); Hemolysis Index 6
--- NOTE | 2020-05-13 09:12 | Progress Note ---
Assessment and Plan Assessment and plan: -- Acute hypoxemic respiratory failure; Requiring continuous very high flow oxygen Patient is on 100% nonrebreather continuous Patient has severe COVID-19 bilateral pneumonia Very high inflammatory markers Critically ill with poor prognosis Close monitoring in IMCU/ICU If no improvement intubate --Laveta D-dimers; check CTA to rule out PE Lower extremity venous Doppler to rule out DVT Patient is already on full dose anticoagulation per COVID-19 protocol -- Novel coronavirus infection with Bilateral pneumonia Coronavirus protocol: IV steroid therapy, IV remdesivir, isolation precautions, contact precautions, prone positioning while in bed, pulmonary toilet. consulted ID --Severe sepsis, due to COVID 19 PNA cont to treat for COVID -- Acute kidney injury (SEN) , likely vasomotor nephropathy Resolved, IV fluids, avoid nephrotoxins -- Alcohol dependence; no episodes of withdrawal symptoms Thiamine, folic acid, multivitamin, CIWA protocol. -- Elevated liver function tests Suspected secondary to alcoholic liver disease. Supportive care, alcohol cessation, patient counseled. -- DVT prophylaxis prophylactic AC with lovenox for elevated D-dimer We will closely monitor patient and adjust management as needed Plan of care reviewed with the patient and his nurse Patient is very sick and critically ill with poor prognosis Consults and recommendations noted and appreciated Critical care time 35 minutes The high probability of a clinically significant, sudden or life threatening deterioration of the [Covid pneumonia, ID, respiratory, liver] system(s) required my full and direct attention, intervention and personal management. The aggregate critical care time was [32] minutes. This time is in addition to time spent performing reported procedures but includes the following: [x] Data Review and interpretation [x] Patient assessment and monitoring of vital signs [x] Documentation [x] Medication orders and management History Interval history: I have seen and examined the patient at the bedside this morning Isolation precautions, PPE protocols strictly observed Patient is on high flow oxygen, continuous 100% nonrebreather oxygen Morbidly obese. In mild distress Hospitalist Physical - Constitutional Vitals: Temp Pulse Resp BP Pulse Ox 98.4 F 87 31 H 131/68 94 05/13/20 08:00 05/13/20 08:21 05/13/20 08:21 05/13/20 08:21 05/13/20 08:21 General appearance: Present: mild distress, well-nourished, obese, other (Hypoxic on high flow oxygen) - EENT Eyes: Present: PERRL, EOM intact - Neck Neck: Present: supple, normal ROM - Respiratory Respiratory effort: normal Respiratory: bilateral: diminished, rhonchi, negative: rales, wheezing - Cardiovascular Rhythm: regular Heart Sounds: Present: S1 & S2 - Extremities Extremities: no ischemia, No edema - Abdominal General gastrointestinal: soft, non-tender, non-distended, normal bowel sounds - Integumentary Integumentary: Present: clear, warm - Psychiatric Psychiatric: appropriate mood/affect, cooperative - Neurologic Neurologic: moves all extremities Results - Labs CBC & Chem 7: 05/10/20 10:32 05/13/20 05:20 Labs: Laboratory Last Values WBC 15.4 K/mm3 (4.5-11.0) H 05/10/20 10:32 RBC 4.44 M/mm3 (3.65-5.03) 05/10/20 10:32 Hgb 14.7 gm/dl (11.8-15.2) 05/10/20 10:32 Hct 43.2 % (35.5-45.6) 05/10/20 10:32 MCV 97 fl (84-94) H 05/10/20 10:32 MCH 33 pg (28-32) H 05/10/20 10:32 MCHC 34 % (32-34) 05/10/20 10:32 RDW 13.1 % (13.2-15.2) L 05/10/20 10:32 Plt Count 248 K/mm3 (140-440) 05/10/20 10:32 Lymph % (Auto) 6.9 % (13.4-35.0) L 05/09/20 12:59 [place] % (Auto) 5.2 % (0.0-7.3) 05/09/20 12:59 Eos % (Auto) 0.0 % (0.0-4.3) 05/09/20 12:59 Baso % (Auto) 0.4 % (0.0-1.8) 05/09/20 12:59 Lymph # (Auto) 0.8 K/mm3 (1.2-5.4) L 05/09/20 12:59 [place] # (Auto) 0.6 K/mm3 (0.0-0.8) 05/09/20 12:59 Eos # (Auto) 0.0 K/mm3 (0.0-0.4) 05/09/20 12:59 Baso # (Auto) 0.0 K/mm3 (0.0-0.1) 05/09/20 12:59 Add Manual Diff Complete 05/10/20 10:32 Total Counted 100 05/10/20 10:32 Seg Neutrophils % Pulp Cooker 05/10/20 10:32 Seg Neuts % (Manual) 89.0 % (40.0-70.0) H 05/10/20 10:32 Band Neutrophils % 1.0 % 05/10/20 10:32 Lymphocytes % (Manual) 8.0 % (13.4-35.0) L 05/10/20 10:32 Reactive Lymphs % (Man) 0 % 05/10/20 10:32 Monocytes % (Manual) 2.0 % (0.0-7.3) 05/10/20 10:32 Eosinophils % (Manual) 0 % (0.0-4.3) 05/10/20 10:32 Basophils % (Manual) 0 % (0.0-1.8) 05/10/20 10:32 Metamyelocytes % 0 % 05/10/20 10:32 Myelocytes % 0 % 05/10/20 10:32 Promyelocytes % 0 % 05/10/20 10:32 Blast Cells % 0 % 05/10/20 10:32 Nucleated RBC % Not Reportable 05/10/20 10:32 Seg Neutrophils # 10.3 K/mm3 (1.8-7.7) H 05/09/20 12:59 Seg Neutrophils # Man 13.7 K/mm3 (1.8-7.7) H 05/10/20 10:32 Band Neutrophils # 0.2 K/mm3 05/10/20 10:32 Lymphocytes # (Manual) 1.2 K/mm3 (1.2-5.4) 05/10/20 10:32 Abs React Lymphs (Man) 0.0 K/mm3 05/10/20 10:32 Monocytes # (Manual) 0.3 K/mm3 (0.0-0.8) 05/10/20 10:32 Eosinophils # (Manual) 0.0 K/mm3 (0.0-0.4) 05/10/20 10:32 Basophils # (Manual) 0.0 K/mm3 (0.0-0.1) 05/10/20 10:32 Metamyelocytes # 0.0 K/mm3 05/10/20 10:32 Myelocytes # 0.0 K/mm3 05/10/20 10:32 Promyelocytes # 0.0 K/mm3 05/10/20 10:32 Blast Cells # 0.0 K/mm3 05/10/20 10:32 WBC Morphology Not Reportable 05/10/20 10:32 Hypersegmented Neuts Not Reportable 05/10/20 10:32 Hyposegmented Neuts Not Reportable 05/10/20 10:32 Hypogranular Neuts Not Reportable 05/10/20 10:32 Smudge Cells Not Reportable 05/10/20 10:32 Toxic Granulation Not Reportable 05/10/20 10:32 Toxic Vacuolation Not Reportable 05/10/20 10:32 Dohle Bodies Not Reportable 05/10/20 10:32 Pelger-Huet Anomaly Not Reportable 05/10/20 10:32 Jason Rods Not Reportable 05/10/20 10:32 Platelet Estimate Consistent w auto 05/10/20 10:32 Clumped Platelets Rare 05/10/20 10:32 Plt Clumps, EDTA Not Reportable 05/10/20 10:32 Large Platelets Not Reportable 05/10/20 10:32 Giant Platelets Not Reportable 05/10/20 10:32 Platelet Satelliting Not Reportable 05/10/20 10:32 Plt Morphology Comment Not Reportable 05/10/20 10:32 RBC Morphology Normal 05/10/20 10:32 Dimorphic RBCs Not Reportable 05/10/20 10:32 Polychromasia Not Reportable 05/10/20 10:32 Hypochromasia Not Reportable 05/10/20 10:32 Poikilocytosis Not Reportable 05/10/20 10:32 Anisocytosis Not Reportable 05/10/20 10:32 Microcytosis Not Reportable 05/10/20 10:32 Macrocytosis Not Reportable 05/10/20 10:32 Spherocytes Not Reportable 05/10/20 10:32 Pappenheimer Bodies Not Reportable 05/10/20 10:32 Sickle Cells Not Reportable 05/10/20 10:32 Target Cells Not Reportable 05/10/20 10:32 Tear Drop Cells Not Reportable 05/10/20 10:32 Ovalocytes Not Reportable 05/10/20 10:32 Helmet Cells Not Reportable 05/10/20 10:32 [place] Bodies Not Reportable 05/10/20 10:32 [place] Rings Not Reportable 05/10/20 10:32 [place] Cells Not Reportable 05/10/20 10:32 Bite Cells Not Reportable 05/10/20 10:32 Crenated Cell Not Reportable 05/10/20 10:32 Elliptocytes Not Reportable 05/10/20 10:32 Acanthocytes (Spur) Not Reportable 05/10/20 10:32 Rouleaux Not Reportable 05/10/20 10:32 Hemoglobin C Crystals Not Reportable 05/10/20 10:32 Schistocytes Not Reportable 05/10/20 10:32 Malaria parasites Not Reportable 05/10/20 10:32 Josue Bodies Not Reportable 05/10/20 10:32 Hem Pathologist Commnt No 05/10/20 10:32 D-Dimer > 31060 ng/mlDDU (0-234) H 05/13/20 05:20 ABG pH 7.428 (7.320-7.450) 05/09/20 15:56 POC ABG pCO2 34.0 mmHg (32.0-48.0) 05/09/20 15:56 POC ABG pO2 57.3 mmHg (83-108) L 05/09/20 15:56 POC ABG HCO3 22.0 05/09/20 15:56 POC ABG Base Excess -1.7 05/09/20 15:56 ABG Hemoglobin 13.7 (12.0-17.5) 05/09/20 15:56 ABG Oxyhemoglobin 86.3 (94-98) L 05/09/20 15:56 ABG Methemoglobin 0.3 (0.0-1.5) 05/09/20 15:56 ABG Sodium 129.9 mmol/L (136.0-145.0) L 05/09/20 15:56 ABG Potassium 3.4 mmol/L (3.40-4.50) 05/09/20 15:56 ABG Chloride 100.0 mmol/L (98-107) 05/09/20 15:56 ABG Glucose 146 mg/dL (65-95) H 05/09/20 15:56 Carboxyhemoglobin 1.3 (0.5-1.5) 05/09/20 15:56 FiO2 100 05/09/20 15:56 Sodium 145 mmol/L (137-145) D 05/13/20 05:20 Potassium 4.1 mmol/L (3.6-5.0) 05/13/20 05:20 Chloride 103.1 mmol/L (98-107) 05/13/20 05:20 Carbon Dioxide 32 mmol/L (22-30) H 05/13/20 05:20 Anion Gap 14 mmol/L 05/13/20 05:20 BUN 30 mg/dL (9-20) H 05/13/20 05:20 Creatinine 1.0 mg/dL (0.8-1.3) 05/13/20 05:20 Estimated GFR > 60 ml/min 05/13/20 05:20 BUN/Creatinine Ratio 30 % 05/13/20 05:20 Glucose 156 mg/dL (75-100) H 05/13/20 05:20 Lactic Acid 1.80 mmol/L (0.7-2.0) 05/09/20 Unknown Calcium 8.4 mg/dL (8.4-10.2) 05/13/20 05:20 Phosphorus 3.20 mg/dL (2.5-4.5) 05/13/20 05:20 Magnesium 2.60 mg/dL (1.7-2.3) H 05/13/20 05:20 Ferritin 21029.0 ng/mL (30.0-300.0) H 05/11/20 07:30 Total Bilirubin 1.40 mg/dL (0.1-1.2) H 05/13/20 05:20 Direct Bilirubin 0.6 mg/dL (0-0.2) H 05/11/20 07:30 Indirect Bilirubin 0.9 mg/dL 05/11/20 07:30 AST 121 units/L (5-40) H 05/13/20 05:20 ALT 119 units/L (7-56) H 05/13/20 05:20 Alkaline Phosphatase 86 units/L (35-129) 05/13/20 05:20 Lactate Dehydrogenase 957 units/L (91-180) H 05/13/20 05:20 C-Reactive Protein 4.00 mg/dL (0.00-1.30) H 05/13/20 05:20 Total Protein 6.6 g/dL (6.3-8.2) 05/13/20 05:20 Albumin 3.0 g/dL (3.9-5) L 05/13/20 05:20 Albumin/Globulin Ratio 0.8 % 05/13/20 05:20 Procalcitonin 4.47 ng/mL (<0.15) 05/09/20 12:59 Arterial Blood Glucose 146 mg/dL (65-95) H 05/09/20 15:56 Arterial Blood Ionized Calcium 3.9 mg/dL (4.6-5.3) L 05/09/20 15:56 Urine Color Fauzia (Yellow) 05/10/20 Unknown Urine Turbidity Clear (Clear) 05/10/20 Unknown Urine pH 5.0 (5.0-7.0) 05/10/20 Unknown Ur Specific [place] 1.019 (1.003-1.030) 05/10/20 Unknown Urine Protein 100 mg/dl mg/dL (Negative) 05/10/20 Unknown Urine Glucose (UA) Neg mg/dL (Negative) 05/10/20 Unknown Urine Ketones Neg mg/dL (Negative) 05/10/20 Unknown Urine Blood Lg (Negative) 05/10/20 Unknown Urine Nitrite Neg (Negative) 05/10/20 Unknown Urine Bilirubin Neg (Negative) 05/10/20 Unknown Urine Urobilinogen 2.0 mg/dL (<2.0) 05/10/20 Unknown Ur Leukocyte Esterase Neg (Negative) 05/10/20 Unknown Urine WBC (Auto) 11.0 /HPF (0.0-6.0) H 05/10/20 Unknown Urine RBC (Auto) 2.0 /HPF (0.0-6.0) 05/10/20 Unknown U Epithel Cells (Auto) 1.0 /HPF (0-13.0) 05/10/20 Unknown Urine Bacteria (Auto) 1+ /HPF (Negative) 05/10/20 Unknown Urine Mucus Few /HPF 05/10/20 Unknown Plasma/Serum Alcohol < 0.01 % (0-0.07) 05/09/20 14:20 Coronavirus (PCR) Positive (Negative) A 05/10/20 Unknown SARS-CoV-2 IgG Ab Reactive (NonReactive) A 05/11/20 07:30 Microbiology: Microbiology 05/09/20 13:02 Peripheral/Venous Blood Culture - Preliminary NO GROWTH AFTER 72 HOURS 05/09/20 12:59 Peripheral/Venous Blood Culture - Preliminary NO GROWTH AFTER 72 HOURS Cantor/IV: Voiding Method Urinal IV Catheter Type [Left Peripheral IV Antecubital] Active Medications - Current Medications Current Medications: Generic Name Dose Route Start Last Admin Trade Name Freq PRN Reason Stop Dose Admin Acetaminophen 650 mg 05/09/20 13:37 Tylenol PO Q4H PRN Pain MILD(1-3)/Fever >100.5/KERR Azithromycin 500 mg 05/12/20 10:00 05/12/20 09:53 Zithromax PO 05/13/20 12:00 500 mg QDAY DESIRE Administration Enoxaparin Sodium 110 mg 05/10/20 22:00 05/12/20 22:12 Enoxaparin 1 mg/kg (110 mg) 110 mg SUB-Q Administration Q12HR [facility] Protocol Folic Acid 1 mg 05/09/20 15:36 05/12/20 09:53 Folvite PO 1 mg QDAY DESIRE Administration REMDESIVIR 100 mg/ Sodium 250 mls @ 500 mls/hr 05/11/20 21:00 05/12/20 22:11 Chloride IV 05/14/20 21:29 500 mls/hr Q24HR@2100 DESIRE Administration Ceftriaxone Sodium 2 gm in 100 mls @ 200 mls/hr 05/11/20 10:00 05/12/20 09:53 Rocephin/Ns 2 Gm/100 Ml IV 05/14/20 12:00 200 mls/hr Q24HR DESIRE Administration Protocol Lorazepam 2 mg 05/09/20 15:40 Ativan IV Q1HR PRN CIWA-Ar 8-15 Methylprednisolone Sodium Succinate 40 mg 05/09/20 16:00 05/13/20 00:25 Solu-Medrol IV 40 mg Q8H DESIRE Administration Ondansetron HCl 4 mg 05/09/20 13:37 Zofran IV Q8H PRN Nausea And Vomiting Sodium Chloride 10 ml 05/09/20 22:00 05/12/20 22:13 Sodium Chloride Flush Syringe 10 Ml IV 10 ml BID DESIRE Administration Sodium Chloride 10 ml 05/09/20 13:37 Sodium Chloride Flush Syringe 10 Ml IV PRN PRN LINE FLUSH Sodium Chloride 50 ml 05/10/20 17:00 05/12/20 22:12 Nacl 0.9% IV 05/14/20 21:01 50 ml Q24HR@2100 DESIRE Administration
--- NOTE | 2020-05-13 10:15 | Progress Note ---
Assessment and Plan Cultures: Blood culture 04/28/2020 no growth today SARS CoV2 PCR positive Assessment: 50 years old male with history of alcohol dependence and obesity admitted on 05/09/2020 due to 5-day history of generalized malaise, fatigue, body aches, dyspnea exertion, cough and shortness of breath, tested positive for COVID-19 2 days before admission: #Severe sepsis: Improving; likely due to bilateral pneumonia. #Severe COVID pneumonia: Chest x-ray with bilateral patchy infiltrates. SARS-CoV-2 PCR positive. Inflammatory markers markedly elevated, D-dimer 10,000, ferritin 38,000. Noted elevated procalcitonin likely due to elevated creatinine, however will cover for bacterial component given severe sepsis. #Acute hypoxemic respiratory failure: O2 sats dropped to 63% on admission, currently on high flow nasal cannula 100%, 40 L. #Elevated LFTs: from COVID, however no higher than 10 times normal. #SEN: from COVID, already improving. Recommendations: -Close monitoring -Get chest CTA r/o PE and venous US r/o DVT - very high ddimer -Pulmonary on board -SARS CoV-2 IgG positive patient is NOT a candidate for COVID convalescent plasma -Patient started on Solu-Medrol -Patient started on remdesivir total 5 days -Monitor inflammatory markers - ferritin, Ddimer, CRP, LDH -Continue ceftriaxone total 5 days and azithromycin total 3 days given severe sepsis -Monitor liver function test on Remdesivir -Continue anticoagulation per System Protocol -continue full dose anticoagulation given elevated D-dimer -Prone positioning as possible Very high risk for deterioration and mortality All laboratory, cultures and imaging were reviewed. Will follow Arcelia Acosta MD Infectious Diseases Field Sampling Technician [facility] M [phone] O [phone] Subjective Date of service: 05/13/20 Principal diagnosis: COVID Interval history: Remains on high flow, sats 93%, no fever Objective - Exam Narrative Exam: Physical Exam: reviewed ED and hospitalist notes, limited due to conservation of PPE and decrease risk of transmission. General appearance: limited due to conservation of PPE Eyes: limited due to conservation of PPE HENT: Atraumatic; limited due to conservation of PPE Lungs: limited due to conservation of PPE CV: limited due to conservation of PPE Abdomen: limited due to conservation of PPE Extremities: limited due to conservation of PPE Skin: limited due to conservation of PPE Psych: limited due to conservation of PPE Neuro: limited due to conservation of PPE - Constitutional Vitals: Vital Signs Temp Pulse Resp BP Pulse Ox 98.4 F 87 31 H 131/68 93 05/13/20 08:00 05/13/20 08:21 05/13/20 08:21 05/13/20 08:21 05/13/20 09:47 Temperature -Last 24 Hours Temperature 98.4 F Temperature 97.3 F Temperature 97.7 F Temperature 98.2 F Temperature 98.4 F Temperature 98.7 F - Labs CBC & Chem 7: 05/10/20 10:32 05/13/20 05:20 Labs: Abnormal lab results 05/13/20 05/13/20 Range/Units 05:20 05:20 D-Dimer > 31046 H (0-234) ng/mlDDU Carbon Dioxide 32 H (22-30) mmol/L BUN 30 H (9-20) mg/dL Glucose 156 H (75-100) mg/dL Magnesium 2.60 H (1.7-2.3) mg/dL Total Bilirubin 1.40 H (0.1-1.2) mg/dL AST 121 H (5-40) units/L ALT 119 H (7-56) units/L Lactate Dehydrogenase 957 H (91-180) units/L C-Reactive Protein 4.00 H (0.00-1.30) mg/dL Albumin 3.0 L (3.9-5) g/dL
[2020-05-13] MEDS: cefTRIAXone/NS 2 GM/100 ML 2 GM/100 ML BAG IV SCH (12:05)
[2020-05-13] MEDS: FOLIC ACID 1 MG TAB PO SCH (12:05)
[2020-05-13] MEDS: ENOXAPARIN 120 MG/0.8 ML INJ SUB-Q SCH ×2 (12:06→23:14)
[2020-05-13] MEDS: AZITHROMYCIN 250 MG TAB PO SCH (12:11)
--- NOTE | 2020-05-13 15:05 | Progress Note ---
Assessment and Plan Acute hypoxemic respiratory failure due to COVID-19 Severe Sepsis Bilateral pneumonia Acute kidney injury (SEN) with acute tubular necrosis (ATN) Alcohol dependence Elevated liver function tests - will deploy BIPAP scheduled qhs for alveolar recruitment - continue airborne and contact isolation - wean supplemental oxygen for target O2 sat's > 92% acutely - Prone positioning as tolerated - continue bronchodilators with pulmonary hygiene per RT (MDI's) - continue empiric full dose anticoagulation re: elevated d-dimers / hypercoagulable state - NOT a candidate for COVID convalescent plasma - continue systemic steroids X >/= 10 days - complete remdesivir dosing (total 5 days) - trend inflammatory markers - ferritin, Ddimer, CRP, LDH; to aid clinical decision making - Continue ceftriaxone total 5 days and azithromycin total 3 days given severe sepsis - Monitor liver function test on Remdesivir - accuchecks with glycemic control per SSI (While critically ill target blood glucose of 140-180 mg/dL; avoid hypoglycemia) - avoid nephrotoxins, renally dose all medications - continue to avoid benzodiazepine's, reduce the possibility of delirium - antiinfective's per ID rec's - prn analgesia per CPOT score - Maintenance of sleep-wake cycle, avoid delirium - aspiration precautions - G.I. & VTE prophylaxis - PT/OT/ROM exercises - continue mobility protocols for pressure ulcer prophylaxis - Monitor hemodynamics closely - continue other care per attending / other consultants - discharge planning ongoing concurrently .... Re-evaluate in am & prn CONDITION: CRITICAL PROGNOSIS: GUARDED CODE STATUS: FULL CODE The high probability of a clinically significant, sudden or life-threatening de terioration of the [respiratory, cardiovascular, hematologic, G.I. & neurologic] system(s) required my full and direct attention, intervention and personal management. The aggregate critical care time was [32] minutes without overlap. Time includes spent on; [x] Data Review and interpretation [x] Patient assessment and monitoring of vital signs [x] Documentation [x] Medication orders and management Subjective Date of service: 05/13/20 Principal diagnosis: Ac hypoxemic resp failure; COVID-19; Severe Sepsis; Shaggy PNA; Alcohol Abuse Interval history: Patient is seen today for: Acute hypoxemic respiratory failure due to COVID-19; Severe Sepsis; Bilateral pneumonia; Alcohol dependence; Elevated liver function tests Seen and examined at bedside; 24hour events reviewed; nursing and respiratory care staff consulted; no adverse overnight events reported to me; resting in bed; remains on 100% HFNC as well as 100% NRB but clinically and hemodynamically stable otherwise; denies chest pains or palpitations; still SOB; No N/V/F/C Objective Vital Signs - 12hr 05/13/20 05/13/20 05/13/20 03:11 03:21 03:31 Temperature Pulse Rate 79 81 85 Pulse Rate [ From Monitor] Respiratory 25 H 21 24 Rate Blood Pressure 102/67 102/67 102/67 O2 Sat by Pulse 96 94 96 Oximetry 05/13/20 05/13/20 05/13/20 03:41 03:51 04:00 Temperature 97.3 F L Pulse Rate 84 82 80 Pulse Rate [ 96 H From Monitor] Respiratory 22 24 22 Rate Blood Pressure 102/67 102/67 113/66 O2 Sat by Pulse 98 97 97 Oximetry 05/13/20 05/13/20 05/13/20 04:11 04:21 04:31 Temperature Pulse Rate 109 H 83 85 Pulse Rate [ From Monitor] Respiratory 26 H 31 H 26 H Rate Blood Pressure 113/66 113/66 113/66 O2 Sat by Pulse 97 93 99 Oximetry 05/13/20 05/13/20 05/13/20 04:41 04:51 05:00 Temperature Pulse Rate 80 89 77 Pulse Rate [ From Monitor] Respiratory 23 23 20 Rate Blood Pressure 113/66 113/66 126/69 O2 Sat by Pulse 97 94 98 Oximetry 05/13/20 05/13/20 05/13/20 05:11 05:21 05:31 Temperature Pulse Rate 75 89 76 Pulse Rate [ From Monitor] Respiratory 20 23 20 Rate Blood Pressure 126/69 126/69 126/69 O2 Sat by Pulse 96 98 96 Oximetry 05/13/20 05/13/20 05/13/20 05:41 05:51 06:00 Temperature Pulse Rate 76 79 81 Pulse Rate [ From Monitor] Respiratory 21 25 H 25 H Rate Blood Pressure 126/69 126/69 126/70 O2 Sat by Pulse 98 95 98 Oximetry 05/13/20 05/13/20 05/13/20 06:11 06:21 06:31 Temperature Pulse Rate 81 76 79 Pulse Rate [ From Monitor] Respiratory 25 H 21 24 Rate Blood Pressure 126/70 126/70 126/70 O2 Sat by Pulse 94 95 100 Oximetry 05/13/20 05/13/20 05/13/20 06:41 06:51 07:00 Temperature Pulse Rate 76 75 80 Pulse Rate [ From Monitor] Respiratory 22 20 18 Rate Blood Pressure 126/70 126/70 132/71 O2 Sat by Pulse 98 96 96 Oximetry 05/13/20 05/13/20 05/13/20 07:11 07:21 07:31 Temperature Pulse Rate 70 78 84 Pulse Rate [ From Monitor] Respiratory 27 H 21 26 H Rate Blood Pressure 132/71 132/71 132/71 O2 Sat by Pulse 96 95 97 Oximetry 05/13/20 05/13/20 05/13/20 07:41 07:51 08:00 Temperature 98.4 F Pulse Rate 74 82 75 Pulse Rate [ From Monitor] Respiratory 24 26 H 23 Rate Blood Pressure 132/71 132/71 131/68 O2 Sat by Pulse 97 97 98 Oximetry 05/13/20 05/13/20 05/13/20 08:11 08:21 09:47 Temperature Pulse Rate 84 87 Pulse Rate [ From Monitor] Respiratory 22 31 H Rate Blood Pressure 131/68 131/68 O2 Sat by Pulse 98 94 93 Oximetry 05/13/20 12:00 Temperature 98.1 F Pulse Rate Pulse Rate [ From Monitor] Respiratory Rate Blood Pressure O2 Sat by Pulse Oximetry Constitutional: no acute distress, alert, other (midle aged obese male with mildly increased respiratory effort at rest) Eyes: non-icteric ENT: oropharynx moist, other (mallampati 3) Neck: supple, no JVD Effort: mildly labored Ascultation: Bilateral: diminished breath sounds, rhonchi (scant) Percussion: Bilateral: not dull Cardiovascular: regular rate and rhythm Gastrointestinal: normoactive bowel sounds, soft, non-tender, non-distended (protuberant) Integumentary: normal Extremities: no cyanosis, no edema, pulses normal, no ischemia or petechiae Neurologic: normal mental status, non-focal exam, pupils equal and round, CN II- XII normal, motor strength normal and Psychiatric: mood appropriate, affect normal CBC and BMP: 05/10/20 10:32 05/13/20 05:20 ABG, PT/INR, D-dimer: ABG ABG pH 7.428 (7.320-7.450) 05/09/20 15:56 POC ABG pCO2 34.0 mmHg (32.0-48.0) 05/09/20 15:56 POC ABG pO2 57.3 mmHg (83-108) L 05/09/20 15:56 POC ABG HCO3 22.0 05/09/20 15:56 PT/INR, D-dimer D-Dimer > 21100 ng/mlDDU (0-234) H 05/13/20 05:20 Abnormal lab findings: Abnormal Labs 05/09/20 05/09/20 05/09/20 12:59 12:59 12:59 WBC 11.8 H MCV 96 H MCH 34 H MCHC 35 H RDW Lymph % (Auto) 6.9 L Lymph # (Auto) 0.8 L Seg Neutrophils % 87.5 H Seg Neuts % (Manual) Lymphocytes % (Manual) Seg Neutrophils # 10.3 H Seg Neutrophils # Man D-Dimer POC ABG pO2 ABG Oxyhemoglobin ABG Sodium ABG Glucose Sodium 130 L Potassium 3.5 L Chloride 86.4 L Carbon Dioxide BUN 33 H Creatinine 2.3 H Glucose 156 H Lactic Acid Calcium Magnesium Ferritin Total Bilirubin 3.40 H Direct Bilirubin 1.7 H AST 385 H ALT 134 H Lactate Dehydrogenase C-Reactive Protein Albumin 3.0 L Arterial Blood Glucose Arterial Blood Ionized Calcium Urine WBC (Auto) Coronavirus (PCR) SARS-CoV-2 IgG Ab 05/09/20 05/09/20 05/09/20 12:59 12:59 12:59 WBC MCV MCH MCHC RDW Lymph % (Auto) Lymph # (Auto) Seg Neutrophils % Seg Neuts % (Manual) Lymphocytes % (Manual) Seg Neutrophils # Seg Neutrophils # Man D-Dimer 3242.51 H POC ABG pO2 ABG Oxyhemoglobin ABG Sodium ABG Glucose Sodium Potassium Chloride Carbon Dioxide BUN Creatinine Glucose 158 H Lactic Acid 3.50 H* Calcium Magnesium Ferritin Total Bilirubin Direct Bilirubin AST ALT Lactate Dehydrogenase 2166 H C-Reactive Protein 39.00 H Albumin Arterial Blood Glucose Arterial Blood Ionized Calcium Urine WBC (Auto) Coronavirus (PCR) SARS-CoV-2 IgG Ab 05/09/20 05/09/20 05/09/20 12:59 14:20 14:20 WBC MCV MCH MCHC RDW Lymph % (Auto) Lymph # (Auto) Seg Neutrophils % Seg Neuts % (Manual) Lymphocytes % (Manual) Seg Neutrophils # Seg Neutrophils # Man D-Dimer 2861.78 H POC ABG pO2 ABG Oxyhemoglobin ABG Sodium ABG Glucose Sodium Potassium Chloride Carbon Dioxide BUN Creatinine Glucose Lactic Acid 2.20 H* Calcium Magnesium Ferritin 87718.0 H Total Bilirubin Direct Bilirubin AST ALT Lactate Dehydrogenase C-Reactive Protein Albumin Arterial Blood Glucose Arterial Blood Ionized Calcium Urine WBC (Auto) Coronavirus (PCR) SARS-CoV-2 IgG Ab 05/09/20 05/09/20 05/09/20 14:20 14:20 15:56 WBC MCV MCH MCHC RDW Lymph % (Auto) Lymph # (Auto) Seg Neutrophils % Seg Neuts % (Manual) Lymphocytes % (Manual) Seg Neutrophils # Seg Neutrophils # Man D-Dimer POC ABG pO2 57.3 L ABG Oxyhemoglobin 86.3 L ABG Sodium 129.9 L ABG Glucose 146 H Sodium Potassium Chloride Carbon Dioxide BUN Creatinine Glucose 143 H Lactic Acid Calcium Magnesium Ferritin 15567.0 H Total Bilirubin Direct Bilirubin AST ALT Lactate Dehydrogenase 1953 H C-Reactive Protein 33.50 H Albumin Arterial Blood Glucose 146 H Arterial Blood Ionized Calcium 3.9 L Urine WBC (Auto) Coronavirus (PCR) SARS-CoV-2 IgG Ab 05/10/20 05/10/20 05/10/20 10:32 10:32 18:50 WBC 15.4 H MCV 97 H MCH 33 H MCHC RDW 13.1 L Lymph % (Auto) Lymph # (Auto) Seg Neutrophils % Seg Neuts % (Manual) 89.0 H Lymphocytes % (Manual) 8.0 L Seg Neutrophils # Seg Neutrophils # Man 13.7 H D-Dimer POC ABG pO2 ABG Oxyhemoglobin ABG Sodium ABG Glucose Sodium 136 L Potassium Chloride 97.4 L Carbon Dioxide BUN 37 H Creatinine 1.7 H Glucose 209 H Lactic Acid Calcium Magnesium Ferritin > 2000.0 H Total Bilirubin Direct Bilirubin AST ALT Lactate Dehydrogenase C-Reactive Protein Albumin Arterial Blood Glucose Arterial Blood Ionized Calcium Urine WBC (Auto) Coronavirus (PCR) SARS-CoV-2 IgG Ab 05/10/20 05/10/20 05/10/20 18:50 19:00 Unknown WBC MCV MCH MCHC RDW Lymph % (Auto) Lymph # (Auto) Seg Neutrophils % Seg Neuts % (Manual) Lymphocytes % (Manual) Seg Neutrophils # Seg Neutrophils # Man D-Dimer > 81740 H POC ABG pO2 ABG Oxyhemoglobin ABG Sodium ABG Glucose Sodium Potassium Chloride Carbon Dioxide BUN Creatinine Glucose Lactic Acid Calcium Magnesium Ferritin Total Bilirubin Direct Bilirubin AST ALT Lactate Dehydrogenase 1879 H C-Reactive Protein 24.80 H Albumin Arterial Blood Glucose Arterial Blood Ionized Calcium Urine WBC (Auto) 11.0 H Coronavirus (PCR) SARS-CoV-2 IgG Ab 05/10/20 05/11/20 05/11/20 Unknown 07:30 07:30 WBC MCV MCH MCHC RDW Lymph % (Auto) Lymph # (Auto) Seg Neutrophils % Seg Neuts % (Manual) Lymphocytes % (Manual) Seg Neutrophils # Seg Neutrophils # Man D-Dimer > 2000 H POC ABG pO2 ABG Oxyhemoglobin ABG Sodium ABG Glucose Sodium Potassium Chloride 96.3 L Carbon Dioxide BUN 36 H Creatinine Glucose 161 H Lactic Acid Calcium 8.3 L Magnesium Ferritin Total Bilirubin 1.50 H Direct Bilirubin 0.6 H AST 178 H ALT 111 H Lactate Dehydrogenase C-Reactive Protein Albumin 3.0 L Arterial Blood Glucose Arterial Blood Ionized Calcium Urine WBC (Auto) Coronavirus (PCR) Positive A SARS-CoV-2 IgG Ab 05/11/20 05/11/20 05/11/20 07:30 07:30 07:30 WBC MCV MCH MCHC RDW Lymph % (Auto) Lymph # (Auto) Seg Neutrophils % Seg Neuts % (Manual) Lymphocytes % (Manual) Seg Neutrophils # Seg Neutrophils # Man D-Dimer POC ABG pO2 ABG Oxyhemoglobin ABG Sodium ABG Glucose Sodium Potassium Chloride Carbon Dioxide BUN Creatinine Glucose Lactic Acid Calcium Magnesium Ferritin 95847.0 H Total Bilirubin Direct Bilirubin AST ALT Lactate Dehydrogenase 1523 H C-Reactive Protein 12.90 H Albumin Arterial Blood Glucose Arterial Blood Ionized Calcium Urine WBC (Auto) Coronavirus (PCR) SARS-CoV-2 IgG Ab Reactive A 05/13/20 05/13/20 05:20 05:20 WBC MCV MCH MCHC RDW Lymph % (Auto) Lymph # (Auto) Seg Neutrophils % Seg Neuts % (Manual) Lymphocytes % (Manual) Seg Neutrophils # Seg Neutrophils # Man D-Dimer > 45945 H POC ABG pO2 ABG Oxyhemoglobin ABG Sodium ABG Glucose Sodium Potassium Chloride Carbon Dioxide 32 H BUN 30 H Creatinine Glucose 156 H Lactic Acid Calcium Magnesium 2.60 H Ferritin Total Bilirubin 1.40 H Direct Bilirubin AST 121 H ALT 119 H Lactate Dehydrogenase 957 H C-Reactive Protein 4.00 H Albumin 3.0 L Arterial Blood Glucose Arterial Blood Ionized Calcium Urine WBC (Auto) Coronavirus (PCR) SARS-CoV-2 IgG Ab Chest x-ray: image reviewed (bilateral infiltrates) Allied health notes reviewed: nursing
--- NOTE | 2020-05-13 15:31 | Vascular Lab Report ---
DUPLEX DOPPLER LOWER EXTREMITY VEINS, BILATERAL INDICATION / CLINICAL INFORMATION: Elevated D-dimers/evaluate for DVT. TECHNIQUE: Duplex doppler imaging was performed through the veins of both lower extremities using venous gutierrez lili and other maneuvers. COMPARISON: None available. FINDINGS: RIGHT COMMON FEMORAL VEIN: Negative. RIGHT FEMORAL VEIN: Negative. RIGHT POPLITEAL VEIN: Negative. RIGHT CALF VEINS: Negative. LEFT COMMON FEMORAL VEIN: Negative. LEFT FEMORAL VEIN: Negative. LEFT POPLITEAL VEIN: Negative. LEFT CALF VEINS: Negative. ADDITIONAL FINDINGS: None. IMPRESSION: 1. No sonographic evidence for DVT in either lower extremity. Signer Name: Lam Franklin MD Signed: 05/13/2020 3:27 PM Workstation Name: [id number]
[2020-05-13] MEDS: REMDESIVIR 100 MG in SODIUM CHLORIDE 0.9% 250ML 250 ML IV SCH (22:22)
[2020-05-13] MEDS: SODIUM CHLORIDE 0.9% 50 ML IVPB IV SCH (23:15)
[2020-05-14] MEDS: ENOXAPARIN 120 MG/0.8 ML INJ SUB-Q SCH ×2 (09:23→22:20)
[2020-05-14] MEDS: FOLIC ACID 1 MG TAB PO SCH (09:24)
[2020-05-14] MEDS: cefTRIAXone/NS 2 GM/100 ML 2 GM/100 ML BAG IV SCH (09:24)
[2020-05-14] MEDS: methylPREDNISolone Sod Succinate 40 MG/1 ML INJ IV SCH ×3 (09:24→23:04)
--- NOTE | 2020-05-14 13:21 | Progress Note ---
Assessment and Plan Acute hypoxemic respiratory failure due to COVID-19 Severe Sepsis Bilateral pneumonia Acute kidney injury (SEN) with acute tubular necrosis (ATN) Alcohol dependence Elevated liver function tests - continue BIPAP scheduled qhs for alveolar recruitment - follow CTA chest - continue care as below otherwise; - continue airborne and contact isolation - wean supplemental oxygen for target O2 sat's > 92% acutely - Prone positioning as tolerated - continue bronchodilators with pulmonary hygiene per RT (MDI's) - continue empiric full dose anticoagulation re: elevated d-dimers / hypercoagulable state - NOT a candidate for COVID convalescent plasma - continue systemic steroids X >/= 10 days - complete remdesivir dosing (total 5 days) - trend inflammatory markers - ferritin, Ddimer, CRP, LDH; to aid clinical decision making - Continue ceftriaxone total 5 days and azithromycin total 3 days given severe sepsis - Monitor liver function test on Remdesivir - accuchecks with glycemic control per SSI (While critically ill target blood glucose of 140-180 mg/dL; avoid hypoglycemia) - avoid nephrotoxins, renally dose all medications - continue to avoid benzodiazepine's, reduce the possibility of delirium - antiinfective's per ID rec's - prn analgesia per CPOT score - Maintenance of sleep-wake cycle, avoid delirium - aspiration precautions - G.I. & VTE prophylaxis - PT/OT/ROM exercises - continue mobility protocols for pressure ulcer prophylaxis - Monitor hemodynamics closely - continue other care per attending / other consultants - discharge planning ongoing concurrently .... Re-evaluate in am & prn CONDITION: CRITICAL PROGNOSIS: GUARDED CODE STATUS: FULL CODE The high probability of a clinically significant, sudden or life-threatening deterioration of the [respiratory, cardiovascular, hematologic, G.I. & neurologic] system(s) required my full and direct attention, intervention and personal management. The aggregate critical care time was [34] minutes without overlap. Time includes spent on; [x] Data Review and interpretation [x] Patient assessment and monitoring of vital signs [x] Documentation [x] Medication orders and management Subjective Date of service: 05/14/20 Principal diagnosis: Ac hypoxemic resp failure; COVID-19; Severe Sepsis; Shaggy PNA; Alcohol Abuse Interval history: Patient is seen today for: Acute hypoxemic respiratory failure due to COVID-19; Severe Sepsis; Bilateral pneumonia; Alcohol dependence; Elevated liver function tests Seen and examined at bedside; 24hour events reviewed; nursing and respiratory care staff consulted; no adverse overnight events reported to me; resting in bed; remains on 100% HFNC but6 now off 100% NRB; tolerated BIPAP well overnight; denies acute chest pains or palpitations; about to go for CTA chest Objective Vital Signs - 12hr 05/14/20 05/14/20 05/14/20 02:00 03:00 04:00 Temperature 97.5 F L Pulse Rate 76 80 81 Pulse Rate [ 89 From Monitor] Respiratory 20 18 26 H Rate Blood Pressure 122/71 108/65 118/72 O2 Sat by Pulse 99 98 96 Oximetry 05/14/20 05/14/20 05/14/20 05:00 06:00 07:00 Temperature Pulse Rate 72 73 74 Pulse Rate [ From Monitor] Respiratory 21 19 19 Rate Blood Pressure 121/71 117/68 115/62 O2 Sat by Pulse 98 99 95 Oximetry 05/14/20 05/14/20 05/14/20 08:00 09:00 10:00 Temperature 98.1 F Pulse Rate 73 95 H 91 H Pulse Rate [ 85 From Monitor] Respiratory 20 29 H 28 H Rate Blood Pressure 127/69 133/74 128/72 O2 Sat by Pulse 92 87 89 Oximetry 05/14/20 11:00 Temperature Pulse Rate 103 H Pulse Rate [ From Monitor] Respiratory 33 H Rate Blood Pressure 126/66 O2 Sat by Pulse 85 Oximetry Constitutional: alert, appears uncomfortable, other (midle aged obese male with mildly increased respiratory effort at rest) Eyes: non-icteric ENT: oropharynx moist, other (mallampati 3) Neck: supple, no JVD Effort: mildly labored Ascultation: Bilateral: diminished breath sounds, rhonchi (scant) Percussion: Bilateral: not dull Cardiovascular: regular rate and rhythm Gastrointestinal: normoactive bowel sounds, soft, non-tender, non-distended ( protuberant) Integumentary: normal Extremities: no cyanosis, no edema, pulses normal, no ischemia or petechiae Neurologic: normal mental status, non-focal exam, pupils equal and round, CN II- XII normal, motor strength normal and Psychiatric: mood appropriate, affect normal CBC and BMP: 05/10/20 10:32 05/13/20 05:20 ABG, PT/INR, D-dimer: ABG ABG pH 7.428 (7.320-7.450) 05/09/20 15:56 POC ABG pCO2 34.0 mmHg (32.0-48.0) 05/09/20 15:56 POC ABG pO2 57.3 mmHg (83-108) L 05/09/20 15:56 POC ABG HCO3 22.0 05/09/20 15:56 PT/INR, D-dimer D-Dimer > 66552 ng/mlDDU (0-234) H 05/13/20 05:20 Abnormal lab findings: Abnormal Labs 05/09/20 05/09/20 05/09/20 12:59 12:59 12:59 WBC 11.8 H MCV 96 H MCH 34 H MCHC 35 H RDW Lymph % (Auto) 6.9 L Lymph # (Auto) 0.8 L Seg Neutrophils % 87.5 H Seg Neuts % (Manual) Lymphocytes % (Manual) Seg Neutrophils # 10.3 H Seg Neutrophils # Man D-Dimer POC ABG pO2 ABG Oxyhemoglobin ABG Sodium ABG Glucose Sodium 130 L Potassium 3.5 L Chloride 86.4 L Carbon Dioxide BUN 33 H Creatinine 2.3 H Glucose 156 H Lactic Acid Calcium Magnesium Ferritin Total Bilirubin 3.40 H Direct Bilirubin 1.7 H AST 385 H ALT 134 H Lactate Dehydrogenase C-Reactive Protein Albumin 3.0 L Arterial Blood Glucose Arterial Blood Ionized Calcium Urine WBC (Auto) Coronavirus (PCR) SARS-CoV-2 IgG Ab 05/09/20 05/09/20 05/09/20 12:59 12:59 12:59 WBC MCV MCH MCHC RDW Lymph % (Auto) Lymph # (Auto) Seg Neutrophils % Seg Neuts % (Manual) Lymphocytes % (Manual) Seg Neutrophils # Seg Neutrophils # Man D-Dimer 3242.51 H POC ABG pO2 ABG Oxyhemoglobin ABG Sodium ABG Glucose Sodium Potassium Chloride Carbon Dioxide BUN Creatinine Glucose 158 H Lactic Acid 3.50 H* Calcium Magnesium Ferritin Total Bilirubin Direct Bilirubin AST ALT Lactate Dehydrogenase 2166 H C-Reactive Protein 39.00 H Albumin Arterial Blood Glucose Arterial Blood Ionized Calcium Urine WBC (Auto) Coronavirus (PCR) SARS-CoV-2 IgG Ab 05/09/20 05/09/20 05/09/20 12:59 14:20 14:20 WBC MCV MCH MCHC RDW Lymph % (Auto) Lymph # (Auto) Seg Neutrophils % Seg Neuts % (Manual) Lymphocytes % (Manual) Seg Neutrophils # Seg Neutrophils # Man D-Dimer 2861.78 H POC ABG pO2 ABG Oxyhemoglobin ABG Sodium ABG Glucose Sodium Potassium Chloride Carbon Dioxide BUN Creatinine Glucose Lactic Acid 2.20 H* Calcium Magnesium Ferritin 83381.0 H Total Bilirubin Direct Bilirubin AST ALT Lactate Dehydrogenase C-Reactive Protein Albumin Arterial Blood Glucose Arterial Blood Ionized Calcium Urine WBC (Auto) Coronavirus (PCR) SARS-CoV-2 IgG Ab 05/09/20 05/09/20 05/09/20 14:20 14:20 15:56 WBC MCV MCH MCHC RDW Lymph % (Auto) Lymph # (Auto) Seg Neutrophils % Seg Neuts % (Manual) Lymphocytes % (Manual) Seg Neutrophils # Seg Neutrophils # Man D-Dimer POC ABG pO2 57.3 L ABG Oxyhemoglobin 86.3 L ABG Sodium 129.9 L ABG Glucose 146 H Sodium Potassium Chloride Carbon Dioxide BUN Creatinine Glucose 143 H Lactic Acid Calcium Magnesium Ferritin 81813.0 H Total Bilirubin Direct Bilirubin AST ALT Lactate Dehydrogenase 1953 H C-Reactive Protein 33.50 H Albumin Arterial Blood Glucose 146 H Arterial Blood Ionized Calcium 3.9 L Urine WBC (Auto) Coronavirus (PCR) SARS-CoV-2 IgG Ab 05/10/20 05/10/20 05/10/20 10:32 10:32 18:50 WBC 15.4 H MCV 97 H MCH 33 H MCHC RDW 13.1 L Lymph % (Auto) Lymph # (Auto) Seg Neutrophils % Seg Neuts % (Manual) 89.0 H Lymphocytes % (Manual) 8.0 L Seg Neutrophils # Seg Neutrophils # Man 13.7 H D-Dimer POC ABG pO2 ABG Oxyhemoglobin ABG Sodium ABG Glucose Sodium 136 L Potassium Chloride 97.4 L Carbon Dioxide BUN 37 H Creatinine 1.7 H Glucose 209 H Lactic Acid Calcium Magnesium Ferritin > 2000.0 H Total Bilirubin Direct Bilirubin AST ALT Lactate Dehydrogenase C-Reactive Protein Albumin Arterial Blood Glucose Arterial Blood Ionized Calcium Urine WBC (Auto) Coronavirus (PCR) SARS-CoV-2 IgG Ab 05/10/20 05/10/20 05/10/20 18:50 19:00 Unknown WBC MCV MCH MCHC RDW Lymph % (Auto) Lymph # (Auto) Seg Neutrophils % Seg Neuts % (Manual) Lymphocytes % (Manual) Seg Neutrophils # Seg Neutrophils # Man D-Dimer > 95705 H POC ABG pO2 ABG Oxyhemoglobin ABG Sodium ABG Glucose Sodium Potassium Chloride Carbon Dioxide BUN Creatinine Glucose Lactic Acid Calcium Magnesium Ferritin Total Bilirubin Direct Bilirubin AST ALT Lactate Dehydrogenase 1879 H C-Reactive Protein 24.80 H Albumin Arterial Blood Glucose Arterial Blood Ionized Calcium Urine WBC (Auto) 11.0 H Coronavirus (PCR) SARS-CoV-2 IgG Ab 05/10/20 05/11/20 05/11/20 Unknown 07:30 07:30 WBC MCV MCH MCHC RDW Lymph % (Auto) Lymph # (Auto) Seg Neutrophils % Seg Neuts % (Manual) Lymphocytes % (Manual) Seg Neutrophils # Seg Neutrophils # Man D-Dimer > 2000 H POC ABG pO2 ABG Oxyhemoglobin ABG Sodium ABG Glucose Sodium Potassium Chloride 96.3 L Carbon Dioxide BUN 36 H Creatinine Glucose 161 H Lactic Acid Calcium 8.3 L Magnesium Ferritin Total Bilirubin 1.50 H Direct Bilirubin 0.6 H AST 178 H ALT 111 H Lactate Dehydrogenase C-Reactive Protein Albumin 3.0 L Arterial Blood Glucose Arterial Blood Ionized Calcium Urine WBC (Auto) Coronavirus (PCR) Positive A SARS-CoV-2 IgG Ab 05/11/20 05/11/20 05/11/20 07:30 07:30 07:30 WBC MCV MCH MCHC RDW Lymph % (Auto) Lymph # (Auto) Seg Neutrophils % Seg Neuts % (Manual) Lymphocytes % (Manual) Seg Neutrophils # Seg Neutrophils # Man D-Dimer POC ABG pO2 ABG Oxyhemoglobin ABG Sodium ABG Glucose Sodium Potassium Chloride Carbon Dioxide BUN Creatinine Glucose Lactic Acid Calcium Magnesium Ferritin 05425.0 H Total Bilirubin Direct Bilirubin AST ALT Lactate Dehydrogenase 1523 H C-Reactive Protein 12.90 H Albumin Arterial Blood Glucose Arterial Blood Ionized Calcium Urine WBC (Auto) Coronavirus (PCR) SARS-CoV-2 IgG Ab Reactive A 05/13/20 05/13/20 05:20 05:20 WBC MCV MCH MCHC RDW Lymph % (Auto) Lymph # (Auto) Seg Neutrophils % Seg Neuts % (Manual) Lymphocytes % (Manual) Seg Neutrophils # Seg Neutrophils # Man D-Dimer > 13771 H POC ABG pO2 ABG Oxyhemoglobin ABG Sodium ABG Glucose Sodium Potassium Chloride Carbon Dioxide 32 H BUN 30 H Creatinine Glucose 156 H Lactic Acid Calcium Magnesium 2.60 H Ferritin Total Bilirubin 1.40 H Direct Bilirubin AST 121 H ALT 119 H Lactate Dehydrogenase 957 H C-Reactive Protein 4.00 H Albumin 3.0 L Arterial Blood Glucose Arterial Blood Ionized Calcium Urine WBC (Auto) Coronavirus (PCR) SARS-CoV-[address] scan - chest: pending Allied health notes reviewed: nursing
--- NOTE | 2020-05-14 13:40 | Progress Note ---
Assessment and Plan Cultures: Blood culture 04/28/2020 no growth today SARS CoV2 PCR positive Assessment: 50 years old male with history of alcohol dependence and obesity admitted on 05/09/2020 due to 5-day history of generalized malaise, fatigue, body aches, dyspnea exertion, cough and shortness of breath, tested positive for COVID-19 2 days before admission: #Severe sepsis: Improving; likely due to bilateral pneumonia. #Severe COVID pneumonia: Chest x-ray with bilateral patchy infiltrates. SARS-CoV-2 PCR positive. Inflammatory markers markedly elevated, D-dimer 10,000, ferritin 38,000. Noted elevated procalcitonin likely due to elevated creatinine, however will cover for bacterial component given severe sepsis. #Acute hypoxemic respiratory failure: O2 sats dropped to 63% on admission, currently on high flow nasal cannula 100%, 40 L. #Elevated LFTs: from COVID, however no higher than 10 times normal. #SEN: from COVID, already improving. #Elevated D-dimer: Venous ultrasound no DVT. Recommendations: -Close monitoring -Obtain chest CTA r/o PE - very high ddimer -Pulmonary on board -SARS CoV-2 IgG positive patient is NOT a candidate for COVID convalescent sugey sma -Patient started on Solu-Medrol -Patient started on remdesivir total 5 days -day 4 of 5 -Monitor inflammatory markers - ferritin, Ddimer, CRP, LDH -Continue ceftriaxone total 5 days and azithromycin total 3 days given severe sepsis -Monitor liver function test on Remdesivir -Continue anticoagulation per System Protocol -continue full dose anticoagulation given elevated D-dimer -Prone positioning as possible Patient requesting to go home, explained that he is not ready to go home due to too high oxygen requirements Very high risk for deterioration and mortality All laboratory, cultures and imaging were reviewed. Will follow Arcelia Acosta MD Infectious Diseases Procurement Coordinator [facility] ([facility] M [phone] O [phone] Subjective Principal diagnosis: Ac hypoxemic resp failure; COVID-19; Severe Sepsis; Shaggy PNA; Alcohol Abuse Objective - Constitutional Vitals: Vital Signs Temp Pulse Resp BP Pulse Ox 98.6 F 103 H 33 H 126/66 85 05/14/20 12:00 05/14/20 11:00 05/14/20 11:00 05/14/20 11:00 05/14/20 11:00 Temperature -Last 24 Hours Temperature 98.6 F Temperature 98.1 F Temperature 97.5 F Temperature 98.5 F Temperature 98.5 F Temperature 97.9 F - Labs CBC & Chem 7: 05/10/20 10:32 05/13/20 05:20
--- NOTE | 2020-05-14 18:51 | Progress Note ---
Assessment and Plan Assessment and plan: -- Acute hypoxemic respiratory failure; Requiring continuous very high flow oxygen Patient is on 100% nonrebreather continuous Patient has severe COVID-19 bilateral pneumonia Very high inflammatory markers Critically ill with poor prognosis Close monitoring in IMCU/ICU If no improvement intubate --Elevated D-dimers; check CTA to rule out PE Lower extremity venous Doppler to rule out DVT Patient is already on full dose anticoagulation per COVID-19 protocol -- Novel coronavirus infection with Bilateral pneumonia Coronavirus protocol: IV steroid therapy, IV remdesivir, isolation precautions, contact precautions, prone positioning while in bed, pulmonary toilet. consulted ID --Severe sepsis, due to COVID 19 PNA cont to treat for COVID -- Acute kidney injury (SEN) , likely vasomotor nephropathy Resolved, IV fluids, avoid nephrotoxins -- Alcohol dependence; no episodes of withdrawal symptoms Thiamine, folic acid, multivitamin, CIWA protocol. -- Elevated liver function tests Suspected secondary to alcoholic liver disease. Supportive care, alcohol cessation, patient counseled. -- DVT prophylaxis prophylactic AC with lovenox for elevated D-dimer We will closely monitor patient and adjust management as needed Plan of care reviewed with the patient and his nurse Patient is very sick and critically ill with poor prognosis Consults and recommendations noted and appreciated Critical care time 35 minutes The high probability of a clinically significant, sudden or life threatening deterioration of the [Covid pneumonia, ID, respiratory, liver] system(s) required my full and direct attention, intervention and personal management. The aggregate critical care time was [33] minutes. This time is in addition to time spent performing reported procedures but includes the following: [x] Data Review and interpretation [x] Patient assessment and monitoring of vital signs [x] Documentation [x] Medication orders and management History Interval history: I have seen and examined the patient at the bedside this morning. Isolation precautions, PPE protocols strictly observed Patient still in shortness of breath, requiring high flow oxygen In mild distress Complains of generalized weakness and mild shortness of breath Vital signs reviewed Hospitalist Physical - Constitutional Vitals: Temp Pulse Resp BP Pulse Ox 98.7 F 126 H 29 H 120/74 83 L 05/14/20 16:00 05/14/20 18:00 05/14/20 18:00 05/14/20 18:00 05/14/20 18:00 General appearance: Present: mild distress, well-nourished, obese (Morbidly obese), other (Hypoxic on high flow oxygen) - EENT Eyes: Present: PERRL, EOM intact - Neck Neck: Present: supple, normal ROM - Respiratory Respiratory effort: normal Respiratory: bilateral: diminished, rhonchi, negative: rales, wheezing - Cardiovascular Rhythm: regular Heart Sounds: Present: S1 & S2 - Extremities Extremities: no ischemia, No edema - Abdominal General gastrointestinal: soft, non-tender, non-distended, normal bowel sounds - Integumentary Integumentary: Present: clear, warm - Psychiatric Psychiatric: appropriate mood/affect, cooperative - Neurologic Neurologic: CNII-XII intact, moves all extremities Results - Labs CBC & Chem 7: 05/10/20 10:32 05/13/20 05:20 Labs: Laboratory Last Values WBC 15.4 K/mm3 (4.5-11.0) H 05/10/20 10:32 RBC 4.44 M/mm3 (3.65-5.03) 05/10/20 10:32 Hgb 14.7 gm/dl (11.8-15.2) 05/10/20 10:32 Hct 43.2 % (35.5-45.6) 05/10/20 10:32 MCV 97 fl (84-94) H 05/10/20 10:32 MCH 33 pg (28-32) H 05/10/20 10:32 MCHC 34 % (32-34) 05/10/20 10:32 RDW 13.1 % (13.2-15.2) L 05/10/20 10:32 Plt Count 248 K/mm3 (140-440) 05/10/20 10:32 Lymph % (Auto) 6.9 % (13.4-35.0) L 05/09/20 12:59 [place] % (Auto) 5.2 % (0.0-7.3) 05/09/20 12:59 Eos % (Auto) 0.0 % (0.0-4.3) 05/09/20 12:59 Baso % (Auto) 0.4 % (0.0-1.8) 05/09/20 12:59 Lymph # (Auto) 0.8 K/mm3 (1.2-5.4) L 05/09/20 12:59 [place] # (Auto) 0.6 K/mm3 (0.0-0.8) 05/09/20 12:59 Eos # (Auto) 0.0 K/mm3 (0.0-0.4) 05/09/20 12:59 Baso # (Auto) 0.0 K/mm3 (0.0-0.1) 05/09/20 12:59 Add Manual Diff Complete 05/10/20 10:32 Total Counted 100 05/10/20 10:32 Seg Neutrophils % Grades 1 6 Tutor 05/10/20 10:32 Seg Neuts % (Manual) 89.0 % (40.0-70.0) H 05/10/20 10:32 Band Neutrophils % 1.0 % 05/10/20 10:32 Lymphocytes % (Manual) 8.0 % (13.4-35.0) L 05/10/20 10:32 Reactive Lymphs % (Man) 0 % 05/10/20 10:32 Monocytes % (Manual) 2.0 % (0.0-7.3) 05/10/20 10:32 Eosinophils % (Manual) 0 % (0.0-4.3) 05/10/20 10:32 Basophils % (Manual) 0 % (0.0-1.8) 05/10/20 10:32 Metamyelocytes % 0 % 05/10/20 10:32 Myelocytes % 0 % 05/10/20 10:32 Promyelocytes % 0 % 05/10/20 10:32 Blast Cells % 0 % 05/10/20 10:32 Nucleated RBC % Not Reportable 05/10/20 10:32 Seg Neutrophils # 10.3 K/mm3 (1.8-7.7) H 05/09/20 12:59 Seg Neutrophils # Man 13.7 K/mm3 (1.8-7.7) H 05/10/20 10:32 Band Neutrophils # 0.2 K/mm3 05/10/20 10:32 Lymphocytes # (Manual) 1.2 K/mm3 (1.2-5.4) 05/10/20 10:32 Abs React Lymphs (Man) 0.0 K/mm3 05/10/20 10:32 Monocytes # (Manual) 0.3 K/mm3 (0.0-0.8) 05/10/20 10:32 Eosinophils # (Manual) 0.0 K/mm3 (0.0-0.4) 05/10/20 10:32 Basophils # (Manual) 0.0 K/mm3 (0.0-0.1) 05/10/20 10:32 Metamyelocytes # 0.0 K/mm3 05/10/20 10:32 Myelocytes # 0.0 K/mm3 05/10/20 10:32 Promyelocytes # 0.0 K/mm3 05/10/20 10:32 Blast Cells # 0.0 K/mm3 05/10/20 10:32 WBC Morphology Not Reportable 05/10/20 10:32 Hypersegmented Neuts Not Reportable 05/10/20 10:32 Hyposegmented Neuts Not Reportable 05/10/20 10:32 Hypogranular Neuts Not Reportable 05/10/20 10:32 Smudge Cells Not Reportable 05/10/20 10:32 Toxic Granulation Not Reportable 05/10/20 10:32 Toxic Vacuolation Not Reportable 05/10/20 10:32 Dohle Bodies Not Reportable 05/10/20 10:32 Pelger-Huet Anomaly Not Reportable 05/10/20 10:32 Jason Rods Not Reportable 05/10/20 10:32 Platelet Estimate Consistent w auto 05/10/20 10:32 Clumped Platelets Rare 05/10/20 10:32 Plt Clumps, EDTA Not Reportable 05/10/20 10:32 Large Platelets Not Reportable 05/10/20 10:32 Giant Platelets Not Reportable 05/10/20 10:32 Platelet Satelliting Not Reportable 05/10/20 10:32 Plt Morphology Comment Not Reportable 05/10/20 10:32 RBC Morphology Normal 05/10/20 10:32 Dimorphic RBCs Not Reportable 05/10/20 10:32 Polychromasia Not Reportable 05/10/20 10:32 Hypochromasia Not Reportable 05/10/20 10:32 Poikilocytosis Not Reportable 05/10/20 10:32 Anisocytosis Not Reportable 05/10/20 10:32 Microcytosis Not Reportable 05/10/20 10:32 Macrocytosis Not Reportable 05/10/20 10:32 Spherocytes Not Reportable 05/10/20 10:32 Pappenheimer Bodies Not Reportable 05/10/20 10:32 Sickle Cells Not Reportable 05/10/20 10:32 Target Cells Not Reportable 05/10/20 10:32 Tear Drop Cells Not Reportable 05/10/20 10:32 Ovalocytes Not Reportable 05/10/20 10:32 Helmet Cells Not Reportable 05/10/20 10:32 [place] Bodies Not Reportable 05/10/20 10:32 [place] Rings Not Reportable 05/10/20 10:32 [place] Cells Not Reportable 05/10/20 10:32 Bite Cells Not Reportable 05/10/20 10:32 Crenated Cell Not Reportable 05/10/20 10:32 Elliptocytes Not Reportable 05/10/20 10:32 Acanthocytes (Spur) Not Reportable 05/10/20 10:32 Rouleaux Not Reportable 05/10/20 10:32 Hemoglobin C Crystals Not Reportable 05/10/20 10:32 Schistocytes Not Reportable 05/10/20 10:32 Malaria parasites Not Reportable 05/10/20 10:32 Josue Bodies Not Reportable 05/10/20 10:32 Hem Pathologist Commnt No 05/10/20 10:32 D-Dimer > 17396 ng/mlDDU (0-234) H 05/13/20 05:20 ABG pH 7.428 (7.320-7.450) 05/09/20 15:56 POC ABG pCO2 34.0 mmHg (32.0-48.0) 05/09/20 15:56 POC ABG pO2 57.3 mmHg (83-108) L 05/09/20 15:56 POC ABG HCO3 22.0 05/09/20 15:56 POC ABG Base Excess -1.7 05/09/20 15:56 ABG Hemoglobin 13.7 (12.0-17.5) 05/09/20 15:56 ABG Oxyhemoglobin 86.3 (94-98) L 05/09/20 15:56 ABG Methemoglobin 0.3 (0.0-1.5) 05/09/20 15:56 ABG Sodium 129.9 mmol/L (136.0-145.0) L 05/09/20 15:56 ABG Potassium 3.4 mmol/L (3.40-4.50) 05/09/20 15:56 ABG Chloride 100.0 mmol/L (98-107) 05/09/20 15:56 ABG Glucose 146 mg/dL (65-95) H 05/09/20 15:56 Carboxyhemoglobin 1.3 (0.5-1.5) 05/09/20 15:56 FiO2 100 05/09/20 15:56 Sodium 145 mmol/L (137-145) D 05/13/20 05:20 Potassium 4.1 mmol/L (3.6-5.0) 05/13/20 05:20 Chloride 103.1 mmol/L (98-107) 05/13/20 05:20 Carbon Dioxide 32 mmol/L (22-30) H 05/13/20 05:20 Anion Gap 14 mmol/L 05/13/20 05:20 BUN 30 mg/dL (9-20) H 05/13/20 05:20 Creatinine 1.0 mg/dL (0.8-1.3) 05/13/20 05:20 Estimated GFR > 60 ml/min 05/13/20 05:20 BUN/Creatinine Ratio 30 % 05/13/20 05:20 Glucose 156 mg/dL (75-100) H 05/13/20 05:20 Lactic Acid 1.80 mmol/L (0.7-2.0) 05/09/20 Unknown Calcium 8.4 mg/dL (8.4-10.2) 05/13/20 05:20 Phosphorus 3.20 mg/dL (2.5-4.5) 05/13/20 05:20 Magnesium 2.60 mg/dL (1.7-2.3) H 05/13/20 05:20 Ferritin 82176.0 ng/mL (30.0-300.0) H 05/11/20 07:30 Total Bilirubin 1.40 mg/dL (0.1-1.2) H 05/13/20 05:20 Direct Bilirubin 0.6 mg/dL (0-0.2) H 05/11/20 07:30 Indirect Bilirubin 0.9 mg/dL 05/11/20 07:30 AST 121 units/L (5-40) H 05/13/20 05:20 ALT 119 units/L (7-56) H 05/13/20 05:20 Alkaline Phosphatase 86 units/L (35-129) 05/13/20 05:20 Lactate Dehydrogenase 957 units/L (91-180) H 05/13/20 05:20 C-Reactive Protein 4.00 mg/dL (0.00-1.30) H 05/13/20 05:20 Total Protein 6.6 g/dL (6.3-8.2) 05/13/20 05:20 Albumin 3.0 g/dL (3.9-5) L 05/13/20 05:20 Albumin/Globulin Ratio 0.8 % 05/13/20 05:20 Procalcitonin 4.47 ng/mL (<0.15) 05/09/20 12:59 Arterial Blood Glucose 146 mg/dL (65-95) H 05/09/20 15:56 Arterial Blood Ionized Calcium 3.9 mg/dL (4.6-5.3) L 05/09/20 15:56 Urine Color Fauzia (Yellow) 05/10/20 Unknown Urine Turbidity Clear (Clear) 05/10/20 Unknown Urine pH 5.0 (5.0-7.0) 05/10/20 Unknown Ur Specific Ava 1.019 (1.003-1.030) 05/10/20 Unknown Urine Protein 100 mg/dl mg/dL (Negative) 05/10/20 Unknown Urine Glucose (UA) Neg mg/dL (Negative) 05/10/20 Unknown Urine Ketones Neg mg/dL (Negative) 05/10/20 Unknown Urine Blood Lg (Negative) 05/10/20 Unknown Urine Nitrite Neg (Negative) 05/10/20 Unknown Urine Bilirubin Neg (Negative) 05/10/20 Unknown Urine Urobilinogen 2.0 mg/dL (<2.0) 05/10/20 Unknown Ur Leukocyte Esterase Neg (Negative) 05/10/20 Unknown Urine WBC (Auto) 11.0 /HPF (0.0-6.0) H 05/10/20 Unknown Urine RBC (Auto) 2.0 /HPF (0.0-6.0) 05/10/20 Unknown U Epithel Cells (Auto) 1.0 /HPF (0-13.0) 05/10/20 Unknown Urine Bacteria (Auto) 1+ /HPF (Negative) 05/10/20 Unknown Urine Mucus Few /HPF 05/10/20 Unknown Plasma/Serum Alcohol < 0.01 % (0-0.07) 05/09/20 14:20 Coronavirus (PCR) Positive (Negative) A 05/10/20 Unknown SARS-CoV-2 IgG Ab Reactive (NonReactive) A 05/11/20 07:30 Microbiology: Microbiology 05/09/20 13:02 Peripheral/Venous Blood Culture - Final NO GROWTH AFTER 5 DAYS 05/09/20 12:59 Peripheral/Venous Blood Culture - Final NO GROWTH AFTER 5 DAYS Cantor/IV: Voiding Method Urinal IV Catheter Type [Left Peripheral IV Antecubital] Active Medications - Current Medications Current Medications: Generic Name Dose Route Start Last Admin Trade Name Freq PRN Reason Stop Dose Admin Acetaminophen 650 mg 05/09/20 13:37 Tylenol PO Q4H PRN Pain MILD(1-3)/Fever >100.5/KERR Enoxaparin Sodium 110 mg 05/10/20 22:00 05/14/20 09:23 Enoxaparin 1 mg/kg (110 mg) 110 mg SUB-Q Administration Q12HR [facility] Protocol Folic Acid 1 mg 05/09/20 15:36 05/14/20 09:24 Folvite PO 1 mg QDAY DESIRE Administration REMDESIVIR 100 mg/ Sodium 250 mls @ 500 mls/hr 05/11/20 21:00 05/13/20 22:22 Chloride IV 05/14/20 21:29 500 mls/hr Q24HR@2100 DESIRE Administration Lorazepam 2 mg 05/09/20 15:40 Ativan IV Q1HR PRN CIWA-Ar 8-15 Methylprednisolone Sodium Succinate 40 mg 05/09/20 16:00 05/14/20 15:55 Solu-Medrol IV 40 mg Q8H DESIRE Administration Ondansetron HCl 4 mg 05/09/20 13:37 Zofran IV Q8H PRN Nausea And Vomiting Sodium Chloride 10 ml 05/09/20 22:00 05/14/20 09:25 Sodium Chloride Flush Syringe 10 Ml IV 10 ml BID DESIRE Administration Sodium Chloride 10 ml 05/09/20 13:37 Sodium Chloride Flush Syringe 10 Ml IV PRN PRN LINE FLUSH Sodium Chloride 50 ml 05/10/20 17:00 05/13/20 23:15 Nacl 0.9% IV 05/14/20 21:01 50 ml Q24HR@2100 DESIRE Administration
[2020-05-14] MEDS: REMDESIVIR 100 MG in SODIUM CHLORIDE 0.9% 250ML 250 ML IV SCH (22:19)
[2020-05-14] MEDS: SODIUM CHLORIDE 0.9% 50 ML IVPB IV SCH (22:19)
--- NOTE | 2020-05-15 08:45 | Progress Note ---
Assessment and Plan Assessment and plan: -- Acute hypoxemic respiratory failure; Requiring continuous very high flow oxygen Patient is on 100% nonrebreather continuous Patient has severe COVID-19 bilateral pneumonia Very high inflammatory markers Critically ill with poor prognosis Close monitoring in IMCU/ICU If no improvement intubate --Elevated D-dimers; check CTA to rule out PE Lower extremity venous Doppler to rule out DVT Patient is already on full dose anticoagulation per COVID-19 protocol -- Novel coronavirus infection with Bilateral pneumonia Coronavirus protocol: IV steroid therapy, IV remdesivir, isolation precautions, contact precautions, prone positioning while in bed, pulmonary toilet. consulted ID --Severe sepsis, due to COVID 19 PNA cont to treat for COVID -- Acute kidney injury (SEN) , likely vasomotor nephropathy Resolved, IV fluids, avoid nephrotoxins -- Alcohol dependence; no episodes of withdrawal symptoms Thiamine, folic acid, multivitamin, CIWA protocol. -- Elevated liver function tests Suspected secondary to alcoholic liver disease. Supportive care, alcohol cessation, patient counseled. -- DVT prophylaxis prophylactic AC with lovenox for elevated D-dimer We will closely monitor patient and adjust management as needed Plan of care reviewed with the patient and his nurse Patient has severe Covid pneumonia, severe hypoxia Critically ill very poor prognosis Full CODE STATUS History Interval history: I have seen and examined the patient at the bedside Isolation precautions, PPE protocols strictly observed Patient remains dependent on high flow oxygen Complains of mild shortness of breath and generalized weakness Afebrile Vital signs reviewed Hospitalist Physical - Constitutional Vitals: Temp Pulse Resp BP Pulse Ox 98.2 F 82 23 107/64 94 05/15/20 04:00 05/15/20 07:00 05/15/20 07:00 05/15/20 07:00 05/15/20 07:00 General appearance: Present: mild distress, well-nourished, obese (Morbidly obese), other (Hypoxic on high flow oxygen) - EENT Eyes: Present: PERRL, EOM intact - Neck Neck: Present: supple, normal ROM - Respiratory Respiratory effort: normal Respiratory: bilateral: diminished, rhonchi, negative: rales, wheezing - Cardiovascular Rhythm: regular Heart Sounds: Present: S1 & S2 - Extremities Extremities: no ischemia, No edema - Abdominal General gastrointestinal: soft, non-tender, non-distended - Integumentary Integumentary: Present: clear, warm - Psychiatric Psychiatric: appropriate mood/affect, cooperative - Neurologic Neurologic: moves all extremities Results - Labs CBC & Chem 7: 05/15/20 08:15 05/15/20 08:15 Labs: Laboratory Last Values WBC 15.4 K/mm3 (4.5-11.0) H 05/10/20 10:32 RBC 4.44 M/mm3 (3.65-5.03) 05/10/20 10:32 Hgb 14.7 gm/dl (11.8-15.2) 05/10/20 10:32 Hct 43.2 % (35.5-45.6) 05/10/20 10:32 MCV 97 fl (84-94) H 05/10/20 10:32 MCH 33 pg (28-32) H 05/10/20 10:32 MCHC 34 % (32-34) 05/10/20 10:32 RDW 13.1 % (13.2-15.2) L 05/10/20 10:32 Plt Count 248 K/mm3 (140-440) 05/10/20 10:32 Lymph % (Auto) 6.9 % (13.4-35.0) L 05/09/20 12:59 [place] % (Auto) 5.2 % (0.0-7.3) 05/09/20 12:59 Eos % (Auto) 0.0 % (0.0-4.3) 05/09/20 12:59 Baso % (Auto) 0.4 % (0.0-1.8) 05/09/20 12:59 Lymph # (Auto) 0.8 K/mm3 (1.2-5.4) L 05/09/20 12:59 [place] # (Auto) 0.6 K/mm3 (0.0-0.8) 05/09/20 12:59 Eos # (Auto) 0.0 K/mm3 (0.0-0.4) 05/09/20 12:59 Baso # (Auto) 0.0 K/mm3 (0.0-0.1) 05/09/20 12:59 Add Manual Diff Complete 05/10/20 10:32 Total Counted 100 05/10/20 10:32 Seg Neutrophils % Visual Training Aide 05/10/20 10:32 Seg Neuts % (Manual) 89.0 % (40.0-70.0) H 05/10/20 10:32 Band Neutrophils % 1.0 % 05/10/20 10:32 Lymphocytes % (Manual) 8.0 % (13.4-35.0) L 05/10/20 10:32 Reactive Lymphs % (Man) 0 % 05/10/20 10:32 Monocytes % (Manual) 2.0 % (0.0-7.3) 05/10/20 10:32 Eosinophils % (Manual) 0 % (0.0-4.3) 05/10/20 10:32 Basophils % (Manual) 0 % (0.0-1.8) 05/10/20 10:32 Metamyelocytes % 0 % 05/10/20 10:32 Myelocytes % 0 % 05/10/20 10:32 Promyelocytes % 0 % 05/10/20 10:32 Blast Cells % 0 % 05/10/20 10:32 Nucleated RBC % Not Reportable 05/10/20 10:32 Seg Neutrophils # 10.3 K/mm3 (1.8-7.7) H 05/09/20 12:59 Seg Neutrophils # Man 13.7 K/mm3 (1.8-7.7) H 05/10/20 10:32 Band Neutrophils # 0.2 K/mm3 05/10/20 10:32 Lymphocytes # (Manual) 1.2 K/mm3 (1.2-5.4) 05/10/20 10:32 Abs React Lymphs (Man) 0.0 K/mm3 05/10/20 10:32 Monocytes # (Manual) 0.3 K/mm3 (0.0-0.8) 05/10/20 10:32 Eosinophils # (Manual) 0.0 K/mm3 (0.0-0.4) 05/10/20 10:32 Basophils # (Manual) 0.0 K/mm3 (0.0-0.1) 05/10/20 10:32 Metamyelocytes # 0.0 K/mm3 05/10/20 10:32 Myelocytes # 0.0 K/mm3 05/10/20 10:32 Promyelocytes # 0.0 K/mm3 05/10/20 10:32 Blast Cells # 0.0 K/mm3 05/10/20 10:32 WBC Morphology Not Reportable 05/10/20 10:32 Hypersegmented Neuts Not Reportable 05/10/20 10:32 Hyposegmented Neuts Not Reportable 05/10/20 10:32 Hypogranular Neuts Not Reportable 05/10/20 10:32 Smudge Cells Not Reportable 05/10/20 10:32 Toxic Granulation Not Reportable 05/10/20 10:32 Toxic Vacuolation Not Reportable 05/10/20 10:32 Dohle Bodies Not Reportable 05/10/20 10:32 Pelger-Huet Anomaly Not Reportable 05/10/20 10:32 Jason Rods Not Reportable 05/10/20 10:32 Platelet Estimate Consistent w auto 05/10/20 10:32 Clumped Platelets Rare 05/10/20 10:32 Plt Clumps, EDTA Not Reportable 05/10/20 10:32 Large Platelets Not Reportable 05/10/20 10:32 Giant Platelets Not Reportable 05/10/20 10:32 Platelet Satelliting Not Reportable 05/10/20 10:32 Plt Morphology Comment Not Reportable 05/10/20 10:32 RBC Morphology Normal 05/10/20 10:32 Dimorphic RBCs Not Reportable 05/10/20 10:32 Polychromasia Not Reportable 05/10/20 10:32 Hypochromasia Not Reportable 05/10/20 10:32 Poikilocytosis Not Reportable 05/10/20 10:32 Anisocytosis Not Reportable 05/10/20 10:32 Microcytosis Not Reportable 05/10/20 10:32 Macrocytosis Not Reportable 05/10/20 10:32 Spherocytes Not Reportable 05/10/20 10:32 Pappenheimer Bodies Not Reportable 05/10/20 10:32 Sickle Cells Not Reportable 05/10/20 10:32 Target Cells Not Reportable 05/10/20 10:32 Tear Drop Cells Not Reportable 05/10/20 10:32 Ovalocytes Not Reportable 05/10/20 10:32 Helmet Cells Not Reportable 05/10/20 10:32 [place] Bodies Not Reportable 05/10/20 10:32 [place] Rings Not Reportable 05/10/20 10:32 [place] Cells Not Reportable 05/10/20 10:32 Bite Cells Not Reportable 05/10/20 10:32 Crenated Cell Not Reportable 05/10/20 10:32 Elliptocytes Not Reportable 05/10/20 10:32 Acanthocytes (Spur) Not Reportable 05/10/20 10:32 Rouleaux Not Reportable 05/10/20 10:32 Hemoglobin C Crystals Not Reportable 05/10/20 10:32 Schistocytes Not Reportable 05/10/20 10:32 Malaria parasites Not Reportable 05/10/20 10:32 Josue Bodies Not Reportable 05/10/20 10:32 Hem Pathologist Commnt No 05/10/20 10:32 D-Dimer > 44842 ng/mlDDU (0-234) H 05/13/20 05:20 ABG pH 7.428 (7.320-7.450) 05/09/20 15:56 POC ABG pCO2 34.0 mmHg (32.0-48.0) 05/09/20 15:56 POC ABG pO2 57.3 mmHg (83-108) L 05/09/20 15:56 POC ABG HCO3 22.0 05/09/20 15:56 POC ABG Base Excess -1.7 05/09/20 15:56 ABG Hemoglobin 13.7 (12.0-17.5) 05/09/20 15:56 ABG Oxyhemoglobin 86.3 (94-98) L 05/09/20 15:56 ABG Methemoglobin 0.3 (0.0-1.5) 05/09/20 15:56 ABG Sodium 129.9 mmol/L (136.0-145.0) L 05/09/20 15:56 ABG Potassium 3.4 mmol/L (3.40-4.50) 05/09/20 15:56 ABG Chloride 100.0 mmol/L (98-107) 05/09/20 15:56 ABG Glucose 146 mg/dL (65-95) H 05/09/20 15:56 Carboxyhemoglobin 1.3 (0.5-1.5) 05/09/20 15:56 FiO2 100 05/09/20 15:56 Sodium 145 mmol/L (137-145) D 05/13/20: Potassium 4.1 mmol/L (3.6-5.0) 05/13/20 05:20 Chloride 103.1 mmol/L (98-107) 05/13/20 05:20 Carbon Dioxide 32 mmol/L (22-30) H 05/13/20 05:20 Anion Gap 14 mmol/L 05/13/20 05:20 BUN 30 mg/dL (9-20) H 05/13/20 05:20 Creatinine 1.0 mg/dL (0.8-1.3) 05/13/20 05:20 Estimated GFR > 60 ml/min 05/13/20 05:20 BUN/Creatinine Ratio 30 % 05/13/20 05:20 Glucose 156 mg/dL (75-100) H 05/13/20 05:20 Lactic Acid 1.80 mmol/L (0.7-2.0) 05/09/20 Unknown Calcium 8.4 mg/dL (8.4-10.2) 05/13/20 05:20 Phosphorus 3.20 mg/dL (2.5-4.5) 05/13/20 05:20 Magnesium 2.60 mg/dL (1.7-2.3) H 05/13/20 05:20 Ferritin 82139.0 ng/mL (30.0-300.0) H 05/11/20 07:30 Total Bilirubin 1.40 mg/dL (0.1-1.2) H 05/13/20 05:20 Direct Bilirubin 0.6 mg/dL (0-0.2) H 05/11/20 07:30 Indirect Bilirubin 0.9 mg/dL 05/11/20 07:30 AST 121 units/L (5-40) H 05/13/20 05:20 ALT 119 units/L (7-56) H 05/13/20 05:20 Alkaline Phosphatase 86 units/L (35-129) 05/13/20 05:20 Lactate Dehydrogenase 957 units/L (91-180) H 05/13/20 05:20 C-Reactive Protein 4.00 mg/dL (0.00-1.30) H 05/13/20 05:20 Total Protein 6.6 g/dL (6.3-8.2) 05/13/20 05:20 Albumin 3.0 g/dL (3.9-5) L 05/13/20 05:20 Albumin/Globulin Ratio 0.8 % 05/13/20 05:20 Procalcitonin 4.47 ng/mL (<0.15) 05/09/20 12:59 Arterial Blood Glucose 146 mg/dL (65-95) H 05/09/20 15:56 Arterial Blood Ionized Calcium 3.9 mg/dL (4.6-5.3) L 05/09/20 15:56 Urine Color Fauzia (Yellow) 05/10/20 Unknown Urine Turbidity Clear (Clear) 05/10/20 Unknown Urine pH 5.0 (5.0-7.0) 05/10/20 Unknown Ur Specific [place] 1.019 (1.003-1.030) 05/10/20 Unknown Urine Protein 100 mg/dl mg/dL (Negative) 05/10/20 Unknown Urine Glucose (UA) Neg mg/dL (Negative) 05/10/20 Unknown Urine Ketones Neg mg/dL (Negative) 05/10/20 Unknown Urine Blood Lg (Negative) 05/10/20 Unknown Urine Nitrite Neg (Negative) 05/10/20 Unknown Urine Bilirubin Neg (Negative) 05/10/20 Unknown Urine Urobilinogen 2.0 mg/dL (<2.0) 05/10/20 Unknown Ur Leukocyte Esterase Neg (Negative) 05/10/20 Unknown Urine WBC (Auto) 11.0 /HPF (0.0-6.0) H 05/10/20 Unknown Urine RBC (Auto) 2.0 /HPF (0.0-6.0) 05/10/20 Unknown U Epithel Cells (Auto) 1.0 /HPF (0-13.0) 05/10/20 Unknown Urine Bacteria (Auto) 1+ /HPF (Negative) 05/10/20 Unknown Urine Mucus Few /HPF 05/10/20 Unknown Plasma/Serum Alcohol < 0.01 % (0-0.07) 05/09/20 14:20 Coronavirus (PCR) Positive (Negative) A 05/10/20 Unknown SARS-CoV-2 IgG Ab Reactive (NonReactive) A 05/11/20 07:30 Microbiology: Microbiology 05/09/20 13:02 Peripheral/Venous Blood Culture - Final NO GROWTH AFTER 5 DAYS 05/09/20 12:59 Peripheral/Venous Blood Culture - Final NO GROWTH AFTER 5 DAYS Cantor/IV: Voiding Method Urinal IV Catheter Type [Left Peripheral IV Antecubital] Active Medications - Current Medications Current Medications: Generic Name Dose Route Start Last Admin Trade Name Freq PRN Reason Stop Dose Admin Acetaminophen 650 mg 05/09/20 13:37 Tylenol PO Q4H PRN Pain MILD(1-3)/Fever >100.5/KERR Enoxaparin Sodium 110 mg 05/10/20 22:00 05/14/20 22:20 Enoxaparin 1 mg/kg (110 mg) 110 mg SUB-Q Administration Q12HR DESIRE Protocol Folic Acid 1 mg 05/09/20 15:36 05/14/20 09:24 Folvite PO 1 mg QDAY DESIRE Administration Lorazepam 2 mg 05/09/20 15:40 Ativan IV Q1HR PRN CIWA-Ar 8-15 Methylprednisolone Sodium Succinate 40 mg 05/09/20 16:00 05/14/20 23:04 Solu-Medrol IV 40 mg Q8H DESIRE Administration Ondansetron HCl 4 mg 05/09/20 13:37 Zofran IV Q8H PRN Nausea And Vomiting Sodium Chloride 10 ml 05/09/20 22:00 05/14/20 22:21 Sodium Chloride Flush Syringe 10 Ml IV 10 ml BID DESIRE Administration Sodium Chloride 10 ml 05/09/20 13:37 Sodium Chloride Flush Syringe 10 Ml IV PRN PRN LINE FLUSH
[2020-05-15] MEDS: methylPREDNISolone Sod Succinate 40 MG/1 ML INJ IV SCH ×3 (09:37→23:01)
[2020-05-15] MEDS: ENOXAPARIN 120 MG/0.8 ML INJ SUB-Q SCH ×2 (09:37→22:55)
[2020-05-15] MEDS: FOLIC ACID 1 MG TAB PO SCH (09:37)
[2020-05-15 09:39] LABS: Alanine Aminotransferase 121 units/L (7-56); BUN/Creatinine Ratio 28; Blood Urea Nitrogen 22 mg/dL (9-20); Calcium 8.3 mg/dL (8.4-10.2); Hemolysis Index 2
[2020-05-15 09:46] LABS: Basophils % (Auto) 0.1 % (0.0-1.8); Eosinophils # (Auto) 0.1 K/mm3 (0.0-0.4); Eosinophils % (Auto) 0.5 % (0.0-4.3); Hematocrit 38.6 % (35.5-45.6); Hemoglobin 12.8 gm/dl (11.8-15.2); Lymphocytes # (Auto) 1.2 K/mm3 (1.2-5.4); Lymphocytes % (Auto) 9.7 % (13.4-35.0); Mean Corpuscular HGB Conc 33 % (32-34); Mean Corpuscular Volume 98 fl (84-94); Monocytes # (Auto) 0.4 K/mm3 (0.0-0.8); Monocytes % (Auto) 2.9 % (0.0-7.3); Platelet Count 239 K/mm3 (140-440); Red Blood Count 3.94 M/mm3 (3.65-5.03); Red Cell Distribution Width 13.6 % (13.2-15.2)
--- NOTE | 2020-05-15 10:51 | Progress Note ---
Assessment and Plan Cultures: Blood culture 04/28/2020 no growth today SARS CoV2 PCR positive Assessment: 50 years old male with history of alcohol dependence and obesity admitted on 05/09/2020 due to 5-day history of generalized malaise, fatigue, body aches, dyspnea exertion, cough and shortness of breath, tested positive for COVID-19 2 days before admission: #Severe sepsis: Improving; likely due to bilateral pneumonia. #Severe COVID pneumonia: Chest x-ray with bilateral patchy infiltrates. SARS-CoV-2 PCR and IgG positive. Inflammatory markers markedly elevated. Noted elevated procalcitonin likely due to elevated creatinine, however treating for bacterial component given severe sepsis. SARS CoV-2 IgG positive patient is NOT a candidate for COVID convalescent plasma. #Acute hypoxemic respiratory failure: on HFNC. #Elevated LFTs: from COVID, downtrending. #SEN: resolved #Elevated D-dimer: Venous ultrasound no DVT. Recommendations: -awaiting chest CTA r/o PE - very high d-dimer. continue anticoagulation per System Protocol, currently on full dose lovenox -continue steroids x 10 days -completed remdesivir, completed abx -Monitor inflammatory markers - ferritin, Ddimer, CRP, LDH -Prone positioning as possible Dr. Byers back on Sunday. Julio Bennett MD, FACP [facility] O: [phone] F: [phone] Subjective Date of service: 05/15/20 Principal diagnosis: Ac hypoxemic resp failure; COVID-19; Severe Sepsis; Shaggy PNA; Alcohol Abuse Interval history: No fever. Remains on high flow. Objective - Exam Narrative Exam: Physical Exam (reviewed in chart due to PPE conservation and minimize risk of transmission) Constitutional: limited due to PPE conservation strategy Head, Ears, Nose: limited due to PPE conservation strategy Eyes: limited due to PPE conservation strategy Neck: limited due to PPE conservation strategy Oral: limited due to PPE conservation strategy Cardiovascular: limited due to PPE conservation strategy Respiratory: limited due to PPE conservation strategy GI: limited due to PPE conservation strategy Musculoskeletal: limited due to PPE conservation strategy Skin: limited due to PPE conservation strategy Hem/Lymphatic: limited due to PPE conservation strategy Psych: limited due to PPE conservation strategy Neurological: limited due to PPE conservation strategy - Constitutional Vitals: Vital Signs Temp Pulse Resp BP Pulse Ox 98.4 F 82 23 107/64 92 05/15/20 08:00 05/15/20 07:00 05/15/20 07:00 05/15/20 07:00 05/15/20 08:58 Temperature -Last 24 Hours Temperature 98.4 F Temperature 98.2 F Temperature 98.5 F Temperature 98.6 F Temperature 98.7 F Temperature 98.6 F - Labs CBC & Chem 7: 05/15/20 08:15 05/15/20 08:15 Labs: Abnormal lab results 05/15/20 05/15/20 05/15/20 Range/Units 08:15 08:15 08:15 WBC 12.4 H (4.5-11.0) K/mm3 MCV 98 H (84-94) fl MCH 33 H (28-32) pg Lymph % (Auto) 9.7 L (13.4-35.0) % Seg Neutrophils % 86.8 H (40.0-70.0) % Seg Neutrophils # 10.8 H (1.8-7.7) K/mm3 D-Dimer 5318.28 H (0-234) ng/mlDDU Chloride 94.8 L (98-107) mmol/L Carbon Dioxide 32 H (22-30) mmol/L BUN 22 H (9-20) mg/dL Glucose 115 H (75-100) mg/dL Calcium 8.3 L (8.4-10.2) mg/dL AST 73 H (5-40) units/L ALT 121 H (7-56) units/L Lactate Dehydrogenase 835 H (91-180) units/L C-Reactive Protein 3.40 H (0.00-1.30) mg/dL Total Protein 6.1 L (6.3-8.2) g/dL Albumin 3.0 L (3.9-5) g/dL
[2020-05-15] MEDS: ACETAMINOPHEN 325 MG TAB PO PRN (13:07)
--- NOTE | 2020-05-15 22:15 | Progress Note ---
Assessment and Plan Patient alert, awake. Resting on Non rebreathing mask, FIO2 100% and O2 saturation running 95%. Patient denies chest pain, shortness of breath or cough. Patient afebrile and has mild leukocytosis. Patients D dimer 5318.28. Ferritin 2494. LDH 835, C reactive protein 3.4. Patient finished course of REMDESIVIR, ceftrioxane and zithromax . Patient is on methlprednisone and S/C Lovenox. I have seen the patient in IM. I spent critical care time of 35 minutes , Reviewing the chart,examining patient, Review labs , chest xray , talking to the respiratory therapy and nursing staff and work out plan of treatment in this critically sick patient. - Patient Problems (1) Acute respiratory failure due to COVID-19 Current Visit: Yes Status: Acute Plan to address problem: Recommend Non rebreathing Mask with, FIO2 100% Recommend transfered momitored unit or IC. Continue I/V solumedrol. Convert aerosol treatments to metered dose inhalers Continue S/C Lovenox. Patient finished course of REMDESIVIR, Ceftrioxana and zithromax. (2) Bilateral pneumonia Current Visit: Yes Status: Acute Plan to address problem: Patient finished course of ceftrioxane and Zithromax. (3) Acute kidney injury (SEN) with acute tubular necrosis (ATN) Current Visit: Yes Status: Acute Plan to address problem: Management as per nephrology. (4) Alcohol dependence Current Visit: Yes Status: Acute Qualifiers: Substance use status: uncomplicated Qualified Code(s): F10.20 - Alcohol dependence, uncomplicated Plan to address problem: Management as per primary care. (5) Elevated liver function tests Current Visit: Yes Status: Acute Plan to address problem: Liver enzymes elevated either from his alcoholic abuse or from COVID 19 infection. Subjective Date of service: 05/15/20 Principal diagnosis: Ac hypoxemic resp failure; COVID-19; Severe Sepsis; Shaggy PNA; Alcohol Abuse Interval history: Patient alert, awake. Resting on Non rebreathing mask, FIO2 100% and O2 saturation running 95%. Patient denies chest pain, shortness of breath or cough. Patient afebrile and has mild leukocytosis. Patients D dimer 5318.28. Ferritin 2494. LDH 835, C reactive protein 3.4. Patient finished course of REMDESIVIR, ceftrioxane and zithromax . Patient is on methlprednisone and S/C Lovenox. Objective Vital Signs - 12hr 05/15/20 05/15/20 05/15/20 11:00 12:00 13:00 Temperature 100.3 F H Pulse Rate 110 H 105 H 101 H Pulse Rate [ 105 H From Monitor] Respiratory 29 H 31 H 19 Rate Blood Pressure 125/82 111/68 103/60 O2 Sat by Pulse 86 84 92 Oximetry 05/15/20 05/15/20 05/15/20 14:00 15:00 16:00 Temperature 98.9 F Pulse Rate 113 H 112 H 109 H Pulse Rate [ 105 H From Monitor] Respiratory 28 H 28 H 26 H Rate Blood Pressure 98/51 111/74 98/65 O2 Sat by Pulse 94 88 96 Oximetry 05/15/20 05/15/20 05/15/20 17:00 18:00 20:00 Temperature 98.7 F Pulse Rate 105 H 111 H Pulse Rate [ From Monitor] Respiratory 19 31 H Rate Blood Pressure 102/64 120/82 O2 Sat by Pulse 93 88 Oximetry Constitutional: no acute distress, alert Eyes: non-icteric ENT: oropharynx moist, other (mallampati 3) Neck: supple, no JVD Effort: mildly labored Ascultation: Bilateral: diminished breath sounds, rhonchi (scant) Percussion: Bilateral: not dull Cardiovascular: regular rate and rhythm Gastrointestinal: normoactive bowel sounds, soft, non-tender, non-distended (protuberant) Integumentary: normal Extremities: no cyanosis, no edema, pulses normal, no ischemia or petechiae Neurologic: normal mental status, non-focal exam, pupils equal and round, CN II- XII normal, motor strength normal and Psychiatric: mood appropriate, affect normal CBC and BMP: 05/15/20 08:15 05/15/20 08:15 ABG, PT/INR, D-dimer: ABG ABG pH 7.428 (7.320-7.450) 05/09/20 15:56 POC ABG pCO2 34.0 mmHg (32.0-48.0) 05/09/20 15:56 POC ABG pO2 57.3 mmHg (83-108) L 05/09/20 15:56 POC ABG HCO3 22.0 05/09/20 15:56 PT/INR, D-dimer D-Dimer 5318.28 ng/mlDDU (0-234) H 05/15/20 08:15 Abnormal lab findings: Abnormal Labs 05/09/20 05/09/20 05/09/20 12:59 12:59 12:59 WBC 11.8 H MCV 96 H MCH 34 H MCHC 35 H RDW Lymph % (Auto) 6.9 L Lymph # (Auto) 0.8 L Seg Neutrophils % 87.5 H Seg Neuts % (Manual) Lymphocytes % (Manual) Seg Neutrophils # 10.3 H Seg Neutrophils # Man D-Dimer POC ABG pO2 ABG Oxyhemoglobin ABG Sodium ABG Glucose Sodium 130 L Potassium 3.5 L Chloride 86.4 L Carbon Dioxide BUN 33 H Creatinine 2.3 H Glucose 156 H Lactic Acid Calcium Magnesium Ferritin Total Bilirubin 3.40 H Direct Bilirubin 1.7 H AST 385 H ALT 134 H Lactate Dehydrogenase C-Reactive Protein Total Protein Albumin 3.0 L Arterial Blood Glucose Arterial Blood Ionized Calcium Urine WBC (Auto) Coronavirus (PCR) SARS-CoV-2 IgG Ab 05/09/20 05/09/20 05/09/20 12:59 12:59 12:59 WBC MCV MCH MCHC RDW Lymph % (Auto) Lymph # (Auto) Seg Neutrophils % Seg Neuts % (Manual) Lymphocytes % (Manual) Seg Neutrophils # Seg Neutrophils # Man D-Dimer 3242.51 H POC ABG pO2 ABG Oxyhemoglobin ABG Sodium ABG Glucose Sodium Potassium Chloride Carbon Dioxide BUN Creatinine Glucose 158 H Lactic Acid 3.50 H* Calcium Magnesium Ferritin Total Bilirubin Direct Bilirubin AST ALT Lactate Dehydrogenase 2166 H C-Reactive Protein 39.00 H Total Protein Albumin Arterial Blood Glucose Arterial Blood Ionized Calcium Urine WBC (Auto) Coronavirus (PCR) SARS-CoV-2 IgG Ab 05/09/20 05/09/20 05/09/20 12:59 14:20 14:20 WBC MCV MCH MCHC RDW Lymph % (Auto) Lymph # (Auto) Seg Neutrophils % Seg Neuts % (Manual) Lymphocytes % (Manual) Seg Neutrophils # Seg Neutrophils # Man D-Dimer 2861.78 H POC ABG pO2 ABG Oxyhemoglobin ABG Sodium ABG Glucose Sodium Potassium Chloride Carbon Dioxide BUN Creatinine Glucose Lactic Acid 2.20 H* Calcium Magnesium Ferritin 37218.0 H Total Bilirubin Direct Bilirubin AST ALT Lactate Dehydrogenase C-Reactive Protein Total Protein Albumin Arterial Blood Glucose Arterial Blood Ionized Calcium Urine WBC (Auto) Coronavirus (PCR) SARS-CoV-2 IgG Ab 05/09/20 05/09/20 05/09/20 14:20 14:20 15:56 WBC MCV MCH MCHC RDW Lymph % (Auto) Lymph # (Auto) Seg Neutrophils % Seg Neuts % (Manual) Lymphocytes % (Manual) Seg Neutrophils # Seg Neutrophils # Man D-Dimer POC ABG pO2 57.3 L ABG Oxyhemoglobin 86.3 L ABG Sodium 129.9 L ABG Glucose 146 H Sodium Potassium Chloride Carbon Dioxide BUN Creatinine Glucose 143 H Lactic Acid Calcium Magnesium Ferritin 07667.0 H Total Bilirubin Direct Bilirubin AST ALT Lactate Dehydrogenase 1953 H C-Reactive Protein 33.50 H Total Protein Albumin Arterial Blood Glucose 146 H Arterial Blood Ionized Calcium 3.9 L Urine WBC (Auto) Coronavirus (PCR) SARS-CoV-2 IgG Ab 05/10/20 05/10/20 05/10/20 10:32 10:32 18:50 WBC 15.4 H MCV 97 H MCH 33 H MCHC RDW 13.1 L Lymph % (Auto) Lymph # (Auto) Seg Neutrophils % Seg Neuts % (Manual) 89.0 H Lymphocytes % (Manual) 8.0 L Seg Neutrophils # Seg Neutrophils # Man 13.7 H D-Dimer POC ABG pO2 ABG Oxyhemoglobin ABG Sodium ABG Glucose Sodium 136 L Potassium Chloride 97.4 L Carbon Dioxide BUN 37 H Creatinine 1.7 H Glucose 209 H Lactic Acid Calcium Magnesium Ferritin > 2000.0 H Total Bilirubin Direct Bilirubin AST ALT Lactate Dehydrogenase C-Reactive Protein Total Protein Albumin Arterial Blood Glucose Arterial Blood Ionized Calcium Urine WBC (Auto) Coronavirus (PCR) SARS-CoV-2 IgG Ab 05/10/20 05/10/20 05/10/20 18:50 19:00 Unknown WBC MCV MCH MCHC RDW Lymph % (Auto) Lymph # (Auto) Seg Neutrophils % Seg Neuts % (Manual) Lymphocytes % (Manual) Seg Neutrophils # Seg Neutrophils # Man D-Dimer > 25894 H POC ABG pO2 ABG Oxyhemoglobin ABG Sodium ABG Glucose Sodium Potassium Chloride Carbon Dioxide BUN Creatinine Glucose Lactic Acid Calcium Magnesium Ferritin Total Bilirubin Direct Bilirubin AST ALT Lactate Dehydrogenase 1879 H C-Reactive Protein 24.80 H Total Protein Albumin Arterial Blood Glucose Arterial Blood Ionized Calcium Urine WBC (Auto) 11.0 H Coronavirus (PCR) SARS-CoV-2 IgG Ab 05/10/20 05/11/20 05/11/20 Unknown 07:30 07:30 WBC MCV MCH MCHC RDW Lymph % (Auto) Lymph # (Auto) Seg Neutrophils % Seg Neuts % (Manual) Lymphocytes % (Manual) Seg Neutrophils # Seg Neutrophils # Man D-Dimer > 2000 H POC ABG pO2 ABG Oxyhemoglobin ABG Sodium ABG Glucose Sodium Potassium Chloride 96.3 L Carbon Dioxide BUN 36 H Creatinine Glucose 161 H Lactic Acid Calcium 8.3 L Magnesium Ferritin Total Bilirubin 1.50 H Direct Bilirubin 0.6 H AST 178 H ALT 111 H Lactate Dehydrogenase C-Reactive Protein Total Protein Albumin 3.0 L Arterial Blood Glucose Arterial Blood Ionized Calcium Urine WBC (Auto) Coronavirus (PCR) Positive A SARS-CoV-2 IgG Ab 05/11/20 05/11/20 05/11/20 07:30 07:30 07:30 WBC MCV MCH MCHC RDW Lymph % (Auto) Lymph # (Auto) Seg Neutrophils % Seg Neuts % (Manual) Lymphocytes % (Manual) Seg Neutrophils # Seg Neutrophils # Man D-Dimer POC ABG pO2 ABG Oxyhemoglobin ABG Sodium ABG Glucose Sodium Potassium Chloride Carbon Dioxide BUN Creatinine Glucose Lactic Acid Calcium Magnesium Ferritin 21819.0 H Total Bilirubin Direct Bilirubin AST ALT Lactate Dehydrogenase 1523 H C-Reactive Protein 12.90 H Total Protein Albumin Arterial Blood Glucose Arterial Blood Ionized Calcium Urine WBC (Auto) Coronavirus (PCR) SARS-CoV-2 IgG Ab Reactive A 05/13/20 05/13/20 05/15/20 05:20 05:20 08:15 WBC MCV MCH MCHC RDW Lymph % (Auto) Lymph # (Auto) Seg Neutrophils % Seg Neuts % (Manual) Lymphocytes % (Manual) Seg Neutrophils # Seg Neutrophils # Man D-Dimer > 47191 H 5318.28 H POC ABG pO2 ABG Oxyhemoglobin ABG Sodium ABG Glucose Sodium Potassium Chloride Carbon Dioxide 32 H BUN 30 H Creatinine Glucose 156 H Lactic Acid Calcium Magnesium 2.60 H Ferritin Total Bilirubin 1.40 H Direct Bilirubin AST 121 H ALT 119 H Lactate Dehydrogenase 957 H C-Reactive Protein 4.00 H Total Protein Albumin 3.0 L Arterial Blood Glucose Arterial Blood Ionized Calcium Urine WBC (Auto) Coronavirus (PCR) SARS-CoV-2 IgG Ab 05/15/20 05/15/20 05/15/20 08:15 08:15 08:15 WBC 12.4 H MCV 98 H MCH 33 H MCHC RDW Lymph % (Auto) 9.7 L Lymph # (Auto) Seg Neutrophils % 86.8 H Seg Neuts % (Manual) Lymphocytes % (Manual) Seg Neutrophils # 10.8 H Seg Neutrophils # Man D-Dimer POC ABG pO2 ABG Oxyhemoglobin ABG Sodium ABG Glucose Sodium Potassium Chloride 94.8 L Carbon Dioxide 32 H BUN 22 H Creatinine Glucose 115 H Lactic Acid Calcium 8.3 L Magnesium Ferritin 2494.0 H Total Bilirubin Direct Bilirubin AST 73 H ALT 121 H Lactate Dehydrogenase 835 H C-Reactive Protein 3.40 H Total Protein 6.1 L Albumin 3.0 L Arterial Blood Glucose Arterial Blood Ionized Calcium Urine WBC (Auto) Coronavirus (PCR) SARS-CoV-2 IgG Ab Prior PFT's, U/S of legs: report reviewed, image reviewed Additional Studies: DUPLEX DOPPLER LOWER EXTREMITY VEINS, BILATERAL 05/13/2020 INDICATION / CLINICAL INFORMATION: Elevated D-dimers/evaluate for DVT. TECHNIQUE: Duplex doppler imaging was performed through the veins of both lower extremities using venous compression and other maneuvers. COMPARISON: None available. FINDINGS: RIGHT COMMON FEMORAL VEIN: Negative. RIGHT FEMORAL VEIN: Negative. RIGHT POPLITEAL VEIN: Negative. RIGHT CALF VEINS: Negative. LEFT COMMON FEMORAL VEIN: Negative. LEFT FEMORAL VEIN: Negative. LEFT POPLITEAL VEIN: Negative. LEFT CALF VEINS: Negative. ADDITIONAL FINDINGS: None. IMPRESSION: 1. No sonographic evidence for DVT in either lower extremity. Allied health notes reviewed: nursing
[2020-05-16] MEDS: methylPREDNISolone Sod Succinate 40 MG/1 ML INJ IV SCH ×2 (08:58→17:44)
[2020-05-16] MEDS: ENOXAPARIN 120 MG/0.8 ML INJ SUB-Q SCH ×2 (09:01→21:41)
[2020-05-16] MEDS: FOLIC ACID 1 MG TAB PO SCH (09:01)
--- NOTE | 2020-05-16 16:38 | Event Note ---
Date: 05/16/20 remains on 100% FiO2 and 40 L flow. I have discussed with attending and recommend holding CTA chest till more stable as already on full anticoagulation for hypercoagulable state.
--- NOTE | 2020-05-16 18:16 | Progress Note ---
Assessment and Plan Assessment and plan: Patient remains hypoxemic, requiring high flow oxygen and BiPAP Patient is in mild distress, secondary to severe COVID-19 pneumonia And severe hypoxemia, critically ill with poor prognosis. Elevated D-dimers; on full dose anticoagulation However ID requested to get CTA chest, patient is unstable to go for CT As he is requiring high flow oxygen. -- Acute hypoxemic respiratory failure; Requiring continuous very high flow oxygen Patient is on 100% nonrebreather continuous Patient has severe COVID-19 bilateral pneumonia Very high inflammatory markers Critically ill with poor prognosis Close monitoring in IMCU/ICU If no improvement intubate --Elevated D-dimers; check CTA to rule out PE Lower extremity venous Doppler to rule out DVT Patient is already on full dose anticoagulation per COVID-19 protocol -- Novel coronavirus infection with Bilateral pneumonia Coronavirus protocol: IV steroid therapy, IV remdesivir, isolation precautions, contact precautions, prone positioning while in bed, pulmonary toilet. consulted ID --Severe sepsis, due to COVID 19 PNA cont to treat for COVID -- Acute kidney injury (SEN) , likely vasomotor nephropathy Resolved, IV fluids, avoid nephrotoxins -- Alcohol dependence; no episodes of withdrawal symptoms Thiamine, folic acid, multivitamin, CIWA protocol. -- Elevated liver function tests Suspected secondary to alcoholic liver disease. Supportive care, alcohol cessation, patient counseled. -- DVT prophylaxis prophylactic AC with lovenox for elevated D-dimer We will closely monitor patient and adjust management as needed Plan of care reviewed with the patient and his nurse Patient has severe Covid pneumonia, severe hypoxia Critically ill very poor prognosis Full CODE STATUS The high probability of a clinically significant, sudden or life threatening deterioration of the [Covid pneumonia, ID, respiratory, liver] system(s) required my full and direct attention, intervention and personal management. The aggregate critical care time was [32] minutes. This time is in addition to time spent performing reported procedures but includes the following: [x] Data Review and interpretation [x] Patient assessment and monitoring of vital signs [x] Documentation [x] Medication orders and management History Interval history: Late entry; I have seen and examined the patient at the bedside this morning in IMCU Isolation precautions, PPE protocols strictly follow Patient continues to have shortness of breath On high flow oxygen/BiPAP In mild distress Vital signs reviewed Hospitalist Physical - Constitutional Vitals: Temp Pulse Resp BP Pulse Ox 98.3 F 98 H 27 H 122/85 93 05/16/20 12:00 05/16/20 17:37 05/16/20 17:37 05/16/20 17:37 05/16/20 17:37 General appearance: Present: mild distress, well-nourished, obese (Morbidly obese), other (Hypoxic on high flow oxygen/on BiPAP today) - EENT Eyes: Present: PERRL, EOM intact - Neck Neck: Present: supple, normal ROM - Respiratory Respiratory effort: labored Respiratory: bilateral: diminished, rhonchi, negative: rales, wheezing - Cardiovascular Rhythm: regular Heart Sounds: Present: S1 & S2 - Extremities Extremities: no ischemia, No edema - Abdominal General gastrointestinal: soft, non-tender, non-distended, normal bowel sounds - Integumentary Integumentary: Present: clear, warm - Psychiatric Psychiatric: appropriate mood/affect, cooperative - Neurologic Neurologic: CNII-XII intact, moves all extremities Results - Labs CBC & Chem 7: 05/15/20 08:15 05/15/20 08:15 Labs: Laboratory Last Values WBC 12.4 K/mm3 (4.5-11.0) H 05/15/20 08:15 RBC 3.94 M/mm3 (3.65-5.03) 05/15/20 08:15 Hgb 12.8 gm/dl (11.8-15.2) 05/15/20 08:15 Hct 38.6 % (35.5-45.6) 05/15/20 08:15 MCV 98 fl (84-94) H 05/15/20 08:15 MCH 33 pg (28-32) H 05/15/20 08:15 MCHC 33 % (32-34) 05/15/20 08:15 RDW 13.6 % (13.2-15.2) 05/15/20 08:15 Plt Count 239 K/mm3 (140-440) 05/15/20 08:15 Lymph % (Auto) 9.7 % (13.4-35.0) L 05/15/20 08:15 [place] % (Auto) 2.9 % (0.0-7.3) 05/15/20 08:15 Eos % (Auto) 0.5 % (0.0-4.3) 05/15/20 08:15 Baso % (Auto) 0.1 % (0.0-1.8) 05/15/20 08:15 Lymph # (Auto) 1.2 K/mm3 (1.2-5.4) 05/15/20 08:15 [place] # (Auto) 0.4 K/mm3 (0.0-0.8) 05/15/20 08:15 Eos # (Auto) 0.1 K/mm3 (0.0-0.4) 05/15/20 08:15 Baso # (Auto) 0.0 K/mm3 (0.0-0.1) 05/15/20 08:15 Add Manual Diff Complete 05/10/20 10:32 Total Counted 100 05/10/20 10:32 Seg Neutrophils % 86.8 % (40.0-70.0) H 05/15/20 08:15 Seg Neuts % (Manual) 89.0 % (40.0-70.0) H 05/10/20 10:32 Band Neutrophils % 1.0 % 05/10/20 10:32 Lymphocytes % (Manual) 8.0 % (13.4-35.0) L 05/10/20 10:32 Reactive Lymphs % (Man) 0 % 05/10/20 10:32 Monocytes % (Manual) 2.0 % (0.0-7.3) 05/10/20 10:32 Eosinophils % (Manual) 0 % (0.0-4.3) 05/10/20 10:32 Basophils % (Manual) 0 % (0.0-1.8) 05/10/20 10:32 Metamyelocytes % 0 % 05/10/20 10:32 Myelocytes % 0 % 05/10/20 10:32 Promyelocytes % 0 % 05/10/20 10:32 Blast Cells % 0 % 05/10/20 10:32 Nucleated RBC % Not Reportable 05/10/20 10:32 Seg Neutrophils # 10.8 K/mm3 (1.8-7.7) H 05/15/20 08:15 Seg Neutrophils # Man 13.7 K/mm3 (1.8-7.7) H 05/10/20 10:32 Band Neutrophils # 0.2 K/mm3 05/10/20 10:32 Lymphocytes # (Manual) 1.2 K/mm3 (1.2-5.4) 05/10/20 10:32 Abs React Lymphs (Man) 0.0 K/mm3 05/10/20 10:32 Monocytes # (Manual) 0.3 K/mm3 (0.0-0.8) 05/10/20 10:32 Eosinophils # (Manual) 0.0 K/mm3 (0.0-0.4) 05/10/20 10:32 Basophils # (Manual) 0.0 K/mm3 (0.0-0.1) 05/10/20 10:32 Metamyelocytes # 0.0 K/mm3 05/10/20 10:32 Myelocytes # 0.0 K/mm3 05/10/20 10:32 Promyelocytes # 0.0 K/mm3 05/10/20 10:32 Blast Cells # 0.0 K/mm3 05/10/20 10:32 WBC Morphology Not Reportable 05/10/20 10:32 Hypersegmented Neuts Not Reportable 05/10/20 10:32 Hyposegmented Neuts Not Reportable 05/10/20 10:32 Hypogranular Neuts Not Reportable 05/10/20 10:32 Smudge Cells Not Reportable 05/10/20 10:32 Toxic Granulation Not Reportable 05/10/20 10:32 Toxic Vacuolation Not Reportable 05/10/20 10:32 Dohle Bodies Not Reportable 05/10/20 10:32 Pelger-Huet Anomaly Not Reportable 05/10/20 10:32 Jason Rods Not Reportable 05/10/20 10:32 Platelet Estimate Consistent w auto 05/10/20 10:32 Clumped Platelets Rare 05/10/20 10:32 Plt Clumps, EDTA Not Reportable 05/10/20 10:32 Large Platelets Not Reportable 05/10/20 10:32 Giant Platelets Not Reportable 05/10/20 10:32 Platelet Satelliting Not Reportable 05/10/20 10:32 Plt Morphology Comment Not Reportable 05/10/20 10:32 RBC Morphology Normal 05/10/20 10:32 Dimorphic RBCs Not Reportable 05/10/20 10:32 Polychromasia Not Reportable 05/10/20 10:32 Hypochromasia Not Reportable 05/10/20 10:32 Poikilocytosis Not Reportable 05/10/20 10:32 Anisocytosis Not Reportable 05/10/20 10:32 Microcytosis Not Reportable 05/10/20 10:32 Macrocytosis Not Reportable 05/10/20 10:32 Spherocytes Not Reportable 05/10/20 10:32 Pappenheimer Bodies Not Reportable 05/10/20 10:32 Sickle Cells Not Reportable 05/10/20 10:32 Target Cells Not Reportable 05/10/20 10:32 Tear Drop Cells Not Reportable 05/10/20 10:32 Ovalocytes Not Reportable 05/10/20 10:32 Helmet Cells Not Reportable 05/10/20 10:32 Sinclair-Cardington Bodies Not Reportable 05/10/20 10:32 Baden Rings Not Reportable 05/10/20 10:32 Keene Cells Not Reportable 05/10/20 10:32 Bite Cells Not Reportable 05/10/20 10:32 Crenated Cell Not Reportable 05/10/20 10:32 Elliptocytes Not Reportable 05/10/20 10:32 Acanthocytes (Spur) Not Reportable 05/10/20 10:32 Rouleaux Not Reportable 05/10/20 10:32 Hemoglobin C Crystals Not Reportable 05/10/20 10:32 Schistocytes Not Reportable 05/10/20 10:32 Malaria parasites Not Reportable 05/10/20 10:32 Josue Bodies Not Reportable 05/10/20 10:32 Hem Pathologist Commnt No 05/10/20 10:32 D-Dimer 5318.28 ng/mlDDU (0-234) H 05/15/20 08:15 ABG pH 7.428 (7.320-7.450) 05/09/20 15:56 POC ABG pCO2 34.0 mmHg (32.0-48.0) 05/09/20 15:56 POC ABG pO2 57.3 mmHg (83-108) L 05/09/20 15:56 POC ABG HCO3 22.0 05/09/20 15:56 POC ABG Base Excess -1.7 05/09/20 15:56 ABG Hemoglobin 13.7 (12.0-17.5) 05/09/20 15:56 ABG Oxyhemoglobin 86.3 (94-98) L 05/09/20 15:56 ABG Methemoglobin 0.3 (0.0-1.5) 05/09/20 15:56 ABG Sodium 129.9 mmol/L (136.0-145.0) L 05/09/20 15:56 ABG Potassium 3.4 mmol/L (3.40-4.50) 05/09/20 15:56 ABG Chloride 100.0 mmol/L (98-107) 05/09/20 15:56 ABG Glucose 146 mg/dL (65-95) H 05/09/20 15:56 Carboxyhemoglobin 1.3 (0.5-1.5) 05/09/20 15:56 FiO2 100 05/09/20 15:56 Sodium 137 mmol/L (137-145) D 05/15/20 08:15 Potassium 4.4 mmol/L (3.6-5.0) 05/15/20 08:15 Chloride 94.8 mmol/L (98-107) L 05/15/20 08:15 Carbon Dioxide 32 mmol/L (22-30) H 05/15/20 08:15 Anion Gap 15 mmol/L 05/15/20 08:15 BUN 22 mg/dL (9-20) H 05/15/20 08:15 Creatinine 0.8 mg/dL (0.8-1.3) 05/15/20 08:15 Estimated GFR > 60 ml/min 05/15/20 08:15 BUN/Creatinine Ratio 28 % 05/15/20 08:15 Glucose 115 mg/dL (75-100) H 05/15/20 08:15 Lactic Acid 1.80 mmol/L (0.7-2.0) 05/09/20 Unknown Calcium 8.3 mg/dL (8.4-10.2) L 05/15/20 08:15 Phosphorus 3.20 mg/dL (2.5-4.5) 05/13/20 05:20 Magnesium 2.60 mg/dL (1.7-2.3) H 05/13/20 05:20 Ferritin 2494.0 ng/mL (30.0-300.0) H 05/15/20 08:15 Total Bilirubin 1.20 mg/dL (0.1-1.2) 05/15/20 08:15 Direct Bilirubin 0.6 mg/dL (0-0.2) H 05/11/20 07:30 Indirect Bilirubin 0.9 mg/dL 05/11/20 07:30 AST 73 units/L (5-40) H 05/15/20 08:15 ALT 121 units/L (7-56) H 05/15/20 08:15 Alkaline Phosphatase 89 units/L (35-129) 05/15/20 08:15 Lactate Dehydrogenase 835 units/L (91-180) H 05/15/20 08:15 C-Reactive Protein 3.40 mg/dL (0.00-1.30) H 05/15/20 08:15 Total Protein 6.1 g/dL (6.3-8.2) L 05/15/20 08:15 Albumin 3.0 g/dL (3.9-5) L 05/15/20 08:15 Albumin/Globulin Ratio 1.0 % 05/15/20 08:15 Procalcitonin 4.47 ng/mL (<0.15) 05/09/20 12:59 Arterial Blood Glucose 146 mg/dL (65-95) H 05/09/20 15:56 Arterial Blood Ionized Calcium 3.9 mg/dL (4.6-5.3) L 05/09/20 15:56 Urine Color Fauzia (Yellow) 05/10/20 Unknown Urine Turbidity Clear (Clear) 05/10/20 Unknown Urine pH 5.0 (5.0-7.0) 05/10/20 Unknown Ur Specific [place] 1.019 (1.003-1.030) 05/10/20 Unknown Urine Protein 100 mg/dl mg/dL (Negative) 05/10/20 Unknown Urine Glucose (UA) Neg mg/dL (Negative) 05/10/20 Unknown Urine Ketones Neg mg/dL (Negative) 05/10/20 Unknown Urine Blood Lg (Negative) 05/10/20 Unknown Urine Nitrite Neg (Negative) 05/10/20 Unknown Urine Bilirubin Neg (Negative) 05/10/20 Unknown Urine Urobilinogen 2.0 mg/dL (<2.0) 05/10/20 Unknown Ur Leukocyte Esterase Neg (Negative) 05/10/20 Unknown Urine WBC (Auto) 11.0 /HPF (0.0-6.0) H 05/10/20 Unknown Urine RBC (Auto) 2.0 /HPF (0.0-6.0) 05/10/20 Unknown U Epithel Cells (Auto) 1.0 /HPF (0-13.0) 05/10/20 Unknown Urine Bacteria (Auto) 1+ /HPF (Negative) 05/10/20 Unknown Urine Mucus Few /HPF 05/10/20 Unknown Plasma/Serum Alcohol < 0.01 % (0-0.07) 05/09/20 14:20 Coronavirus (PCR) Positive (Negative) A 05/10/20 Unknown SARS-CoV-2 IgG Ab Reactive (NonReactive) A 05/11/20 07:30 Cantor/IV: Voiding Method Urinal IV Catheter Type [Left Peripheral IV Antecubital] Active Medications - Current Medications Current Medications: Generic Name Dose Route Start Last Admin Trade Name Freq PRN Reason Stop Dose Admin Acetaminophen 650 mg 05/09/20 13:37 05/15/20 13:07 Tylenol PO 650 mg Q4H PRN Administration Pain MILD(1-3)/Fever >100.5/KERR Enoxaparin Sodium 110 mg 05/10/20 22:00 05/16/20 09:01 Enoxaparin 1 mg/kg (110 mg) 110 mg SUB-Q Administration Q12HR [facility] Protocol Folic Acid 1 mg 05/09/20 15:36 05/16/20 09:01 Folvite PO 1 mg QDAY DESIRE Administration Lorazepam 2 mg 05/09/20 15:40 Ativan IV Q1HR PRN CIWA-Ar 8-15 Methylprednisolone Sodium Succinate 40 mg 05/09/20 16:00 05/16/20 17:44 Solu-Medrol IV 40 mg Q8H DESIRE Administration Ondansetron HCl 4 mg 05/09/20 13:37 Zofran IV Q8H PRN Nausea And Vomiting Sodium Chloride 10 ml 05/09/20 22:00 05/16/20 09:02 Sodium Chloride Flush Syringe 10 Ml IV 10 ml BID DESIRE Administration Sodium Chloride 10 ml 05/09/20 13:37 Sodium Chloride Flush Syringe 10 Ml IV PRN PRN LINE FLUSH
--- NOTE | 2020-05-16 22:20 | Progress Note ---
Assessment and Plan Patient sleeping on BIPAP at this time. Patient is on BIPAP 14/8, rate 12 , FIO2 80% and O2 saturation running 92%. Patient tolerating BIPAP. No acute respiratory distress. Patient afebrile and has mild leukocytosis. Patients D dimer 5318.28. Ferritin 2494. LDH 835, C reactive protein 3.4. Patient finished course of REMDESIVIR, ceftrioxane and zithromax . Patient is on methlprednisone and S/C Lovenox. I have seen the patient in [facility]. I spent critical care time of 35 minutes , Reviewing the chart,examining patient, Review labs , chest xray , talking to the respiratory therapy and nursing staff and work out plan of treatment in this critically sick patient. - Patient Problems (1) Acute respiratory failure due to COVID-19 Current Visit: Yes Status: Acute Plan to address problem: BIPAP 14/8, rate 12, FIO2 80%. Continue I/V solumedrol. Convert aerosol treatments to metered dose inhalers Continue S/C Lovenox. Patient finished course of REMDESIVIR, Ceftrioxana and zithromax. (2) Bilateral pneumonia Current Visit: Yes Status: Acute Plan to address problem: Patient finished course of ceftrioxane and Zithromax. (3) Acute kidney injury (SEN) with acute tubular necrosis (ATN) Current Visit: Yes Status: Acute Plan to address problem: Management as per nephrology. (4) Alcohol dependence Current Visit: Yes Status: Acute Qualifiers: Substance use status: uncomplicated Qualified Code(s): F10.20 - Alcohol dependence, uncomplicated Plan to address problem: Management as per primary care. (5) Elevated liver function tests Current Visit: Yes Status: Acute Plan to address problem: Liver enzymes elevated either from his alcoholic abuse or from COVID 19 inf ection. Subjective Date of service: 05/16/20 Principal diagnosis: Ac hypoxemic resp failure; COVID-19; Severe Sepsis; Shaggy PNA; Alcohol Abuse Interval history: Patient sleeping on BIPAP at this time. Patient is on BIPAP 14/8, rate 12 , FIO2 80% and O2 saturation running 92%. Patient tolerating BIPAP. No acute respiratory distress. Patient afebrile and has mild leukocytosis. Patients D dimer 5318.28. Ferritin 2494. LDH 835, C reactive protein 3.4. Patient finished course of REMDESIVIR, ceftrioxane and zithromax . Patient is on methlprednisone and S/C Lovenox. Objective Vital Signs - 12hr 05/16/20 05/16/20 05/16/20 11:00 12:00 13:00 Temperature 98.3 F Pulse Rate 96 H 96 H Pulse Rate [ 96 H From Monitor] Respiratory 22 19 12 Rate Respiratory Rate [ Generalized] Blood Pressure 119/76 119/76 119/76 O2 Sat by Pulse 91 89 83 L Oximetry 05/16/20 05/16/20 05/16/20 14:00 15:00 16:00 Temperature 98.1 F Pulse Rate 93 H 94 H 96 H Pulse Rate [ 98 H From Monitor] Respiratory 27 H 27 H 23 Rate Respiratory Rate [ Generalized] Blood Pressure 119/76 119/76 105/75 O2 Sat by Pulse 93 90 91 Oximetry 05/16/20 05/16/20 05/16/20 17:00 17:37 18:00 Temperature Pulse Rate 97 H 98 H 93 H Pulse Rate [ From Monitor] Respiratory 22 27 H 16 Rate Respiratory Rate [ Generalized] Blood Pressure 122/85 122/85 118/83 O2 Sat by Pulse 85 93 90 Oximetry 05/16/20 05/16/20 05/16/20 19:00 20:00 20:05 Temperature 98.6 F Pulse Rate 90 98 H 100 H Pulse Rate [ From Monitor] Respiratory 27 H 26 H Rate Respiratory Rate [ Generalized] Blood Pressure 116/83 109/73 O2 Sat by Pulse 89 92 Oximetry 05/16/20 05/16/20 05/16/20 20:38 20:43 21:00 Temperature Pulse Rate 91 H Pulse Rate [ From Monitor] Respiratory 33 H Rate Respiratory 20 Rate [ Generalized] Blood Pressure 109/73 O2 Sat by Pulse 92 91 Oximetry 05/16/20 21:11 Temperature Pulse Rate 101 H Pulse Rate [ From Monitor] Respiratory 15 Rate Respiratory Rate [ Generalized] Blood Pressure O2 Sat by Pulse 92 Oximetry Constitutional: no acute distress, asleep Eyes: non-icteric ENT: oropharynx moist, other (mallampati 3) Neck: supple, no JVD Effort: mildly labored Ascultation: Bilateral: diminished breath sounds, rhonchi (scant) Percussion: Bilateral: not dull Cardiovascular: regular rate and rhythm Gastrointestinal: normoactive bowel sounds, soft, non-tender, non-distended (protuberant) Integumentary: normal Extremities: no cyanosis, no edema, pulses normal, no ischemia or petechiae Neurologic: normal mental status, non-focal exam, pupils equal and round, CN II- XII normal, motor strength normal and Psychiatric: mood appropriate, affect normal CBC and BMP: 05/15/20 08:15 05/15/20 08:15 ABG, PT/INR, D-dimer: ABG ABG pH 7.428 (7.320-7.450) 05/09/20 15:56 POC ABG pCO2 34.0 mmHg (32.0-48.0) 05/09/20 15:56 POC ABG pO2 57.3 mmHg (83-108) L 05/09/20 15:56 POC ABG HCO3 22.0 05/09/20 15:56 PT/INR, D-dimer D-Dimer 5318.28 ng/mlDDU (0-234) H 05/15/20 08:15 Abnormal lab findings: Abnormal Labs 05/09/20 05/09/20 05/09/20 12:59 12:59 12:59 WBC 11.8 H MCV 96 H MCH 34 H MCHC 35 H RDW Lymph % (Auto) 6.9 L Lymph # (Auto) 0.8 L Seg Neutrophils % 87.5 H Seg Neuts % (Manual) Lymphocytes % (Manual) Seg Neutrophils # 10.3 H Seg Neutrophils # Man D-Dimer POC ABG pO2 ABG Oxyhemoglobin ABG Sodium ABG Glucose Sodium 130 L Potassium 3.5 L Chloride 86.4 L Carbon Dioxide BUN 33 H Creatinine 2.3 H Glucose 156 H Lactic Acid Calcium Magnesium Ferritin Total Bilirubin 3.40 H Direct Bilirubin 1.7 H AST 385 H ALT 134 H Lactate Dehydrogenase C-Reactive Protein Total Protein Albumin 3.0 L Arterial Blood Glucose Arterial Blood Ionized Calcium Urine WBC (Auto) Coronavirus (PCR) SARS-CoV-2 IgG Ab 05/09/20 05/09/20 05/09/20 12:59 12:59 12:59 WBC MCV MCH MCHC RDW Lymph % (Auto) Lymph # (Auto) Seg Neutrophils % Seg Neuts % (Manual) Lymphocytes % (Manual) Seg Neutrophils # Seg Neutrophils # Man D-Dimer 3242.51 H POC ABG pO2 ABG Oxyhemoglobin ABG Sodium ABG Glucose Sodium Potassium Chloride Carbon Dioxide BUN Creatinine Glucose 158 H Lactic Acid 3.50 H* Calcium Magnesium Ferritin Total Bilirubin Direct Bilirubin AST ALT Lactate Dehydrogenase 2166 H C-Reactive Protein 39.00 H Total Protein Albumin Arterial Blood Glucose Arterial Blood Ionized Calcium Urine WBC (Auto) Coronavirus (PCR) SARS-CoV-2 IgG Ab 05/09/20 05/09/20 05/09/20 12:59 14:20 14:20 WBC MCV MCH MCHC RDW Lymph % (Auto) Lymph # (Auto) Seg Neutrophils % Seg Neuts % (Manual) Lymphocytes % (Manual) Seg Neutrophils # Seg Neutrophils # Man D-Dimer 2861.78 H POC ABG pO2 ABG Oxyhemoglobin ABG Sodium ABG Glucose Sodium Potassium Chloride Carbon Dioxide BUN Creatinine Glucose Lactic Acid 2.20 H* Calcium Magnesium Ferritin 33165.0 H Total Bilirubin Direct Bilirubin AST ALT Lactate Dehydrogenase C-Reactive Protein Total Protein Albumin Arterial Blood Glucose Arterial Blood Ionized Calcium Urine WBC (Auto) Coronavirus (PCR) SARS-CoV-2 IgG Ab 05/09/20 05/09/20 05/09/20 14:20 14:20 15:56 WBC MCV MCH MCHC RDW Lymph % (Auto) Lymph # (Auto) Seg Neutrophils % Seg Neuts % (Manual) Lymphocytes % (Manual) Seg Neutrophils # Seg Neutrophils # Man D-Dimer POC ABG pO2 57.3 L ABG Oxyhemoglobin 86.3 L ABG Sodium 129.9 L ABG Glucose 146 H Sodium Potassium Chloride Carbon Dioxide BUN Creatinine Glucose 143 H Lactic Acid Calcium Magnesium Ferritin 25344.0 H Total Bilirubin Direct Bilirubin AST ALT Lactate Dehydrogenase 1953 H C-Reactive Protein 33.50 H Total Protein Albumin Arterial Blood Glucose 146 H Arterial Blood Ionized Calcium 3.9 L Urine WBC (Auto) Coronavirus (PCR) SARS-CoV-2 IgG Ab 05/10/20 05/10/20 05/10/20 10:32 10:32 18:50 WBC 15.4 H MCV 97 H MCH 33 H MCHC RDW 13.1 L Lymph % (Auto) Lymph # (Auto) Seg Neutrophils % Seg Neuts % (Manual) 89.0 H Lymphocytes % (Manual) 8.0 L Seg Neutrophils # Seg Neutrophils # Man 13.7 H D-Dimer POC ABG pO2 ABG Oxyhemoglobin ABG Sodium ABG Glucose Sodium 136 L Potassium Chloride 97.4 L Carbon Dioxide BUN 37 H Creatinine 1.7 H Glucose 209 H Lactic Acid Calcium Magnesium Ferritin > 2000.0 H Total Bilirubin Direct Bilirubin AST ALT Lactate Dehydrogenase C-Reactive Protein Total Protein Albumin Arterial Blood Glucose Arterial Blood Ionized Calcium Urine WBC (Auto) Coronavirus (PCR) SARS-CoV-2 IgG Ab 05/10/20 05/10/20 05/10/20 18:50 19:00 Unknown WBC MCV MCH MCHC RDW Lymph % (Auto) Lymph # (Auto) Seg Neutrophils % Seg Neuts % (Manual) Lymphocytes % (Manual) Seg Neutrophils # Seg Neutrophils # Man D-Dimer > 38160 H POC ABG pO2 ABG Oxyhemoglobin ABG Sodium ABG Glucose Sodium Potassium Chloride Carbon Dioxide BUN Creatinine Glucose Lactic Acid Calcium Magnesium Ferritin Total Bilirubin Direct Bilirubin AST ALT Lactate Dehydrogenase 1879 H C-Reactive Protein 24.80 H Total Protein Albumin Arterial Blood Glucose Arterial Blood Ionized Calcium Urine WBC (Auto) 11.0 H Coronavirus (PCR) SARS-CoV-2 IgG Ab 05/10/20 05/11/20 05/11/20 Unknown 07:30 07:30 WBC MCV MCH MCHC RDW Lymph % (Auto) Lymph # (Auto) Seg Neutrophils % Seg Neuts % (Manual) Lymphocytes % (Manual) Seg Neutrophils # Seg Neutrophils # Man D-Dimer > 2000 H POC ABG pO2 ABG Oxyhemoglobin ABG Sodium ABG Glucose Sodium Potassium Chloride 96.3 L Carbon Dioxide BUN 36 H Creatinine Glucose 161 H Lactic Acid Calcium 8.3 L Magnesium Ferritin Total Bilirubin 1.50 H Direct Bilirubin 0.6 H AST 178 H ALT 111 H Lactate Dehydrogenase C-Reactive Protein Total Protein Albumin 3.0 L Arterial Blood Glucose Arterial Blood Ionized Calcium Urine WBC (Auto) Coronavirus (PCR) Positive A SARS-CoV-2 IgG Ab 05/11/20 05/11/20 05/11/20 07:30 07:30 07:30 WBC MCV MCH MCHC RDW Lymph % (Auto) Lymph # (Auto) Seg Neutrophils % Seg Neuts % (Manual) Lymphocytes % (Manual) Seg Neutrophils # Seg Neutrophils # Man D-Dimer POC ABG pO2 ABG Oxyhemoglobin ABG Sodium ABG Glucose Sodium Potassium Chloride Carbon Dioxide BUN Creatinine Glucose Lactic Acid Calcium Magnesium Ferritin 71921.0 H Total Bilirubin Direct Bilirubin AST ALT Lactate Dehydrogenase 1523 H C-Reactive Protein 12.90 H Total Protein Albumin Arterial Blood Glucose Arterial Blood Ionized Calcium Urine WBC (Auto) Coronavirus (PCR) SARS-CoV-2 IgG Ab Reactive A 05/13/20 05/13/20 05/15/20 05:20 05:20 08:15 WBC MCV MCH MCHC RDW Lymph % (Auto) Lymph # (Auto) Seg Neutrophils % Seg Neuts % (Manual) Lymphocytes % (Manual) Seg Neutrophils # Seg Neutrophils # Man D-Dimer > 09493 H 5318.28 H POC ABG pO2 ABG Oxyhemoglobin ABG Sodium ABG Glucose Sodium Potassium Chloride Carbon Dioxide 32 H BUN 30 H Creatinine Glucose 156 H Lactic Acid Calcium Magnesium 2.60 H Ferritin Total Bilirubin 1.40 H Direct Bilirubin AST 121 H ALT 119 H Lactate Dehydrogenase 957 H C-Reactive Protein 4.00 H Total Protein Albumin 3.0 L Arterial Blood Glucose Arterial Blood Ionized Calcium Urine WBC (Auto) Coronavirus (PCR) SARS-CoV-2 IgG Ab 05/15/20 05/15/20 05/15/20 08:15 08:15 08:15 WBC 12.4 H MCV 98 H MCH 33 H MCHC RDW Lymph % (Auto) 9.7 L Lymph # (Auto) Seg Neutrophils % 86.8 H Seg Neuts % (Manual) Lymphocytes % (Manual) Seg Neutrophils # 10.8 H Seg Neutrophils # Man D-Dimer POC ABG pO2 ABG Oxyhemoglobin ABG Sodium ABG Glucose Sodium Potassium Chloride 94.8 L Carbon Dioxide 32 H BUN 22 H Creatinine Glucose 115 H Lactic Acid Calcium 8.3 L Magnesium Ferritin 2494.0 H Total Bilirubin Direct Bilirubin AST 73 H ALT 121 H Lactate Dehydrogenase 835 H C-Reactive Protein 3.40 H Total Protein 6.1 L Albumin 3.0 L Arterial Blood Glucose Arterial Blood Ionized Calcium Urine WBC (Auto) Coronavirus (PCR) SARS-CoV-2 IgG Ab Allied health notes reviewed: nursing
[2020-05-17] MEDS: guaiFENesin DM 200/20 MG ORAL LIQD 10 ML PO PRN (00:08)
[2020-05-17] MEDS: methylPREDNISolone Sod Succinate 40 MG/1 ML INJ IV SCH ×4 (00:08→23:56)
[2020-05-17 06:27] LABS: Basophils % (Auto) 0.1 % (0.0-1.8); Hematocrit 38.7 % (35.5-45.6); Hemoglobin 13.2 gm/dl (11.8-15.2); Lymphocytes # (Auto) 0.8 K/mm3 (1.2-5.4); Mean Corpuscular HGB Conc 34 % (32-34); Mean Corpuscular Volume 98 fl (84-94); Monocytes # (Auto) 0.3 K/mm3 (0.0-0.8); Monocytes % (Auto) 2.6 % (0.0-7.3); Platelet Count 192 K/mm3 (140-440); Red Blood Count 3.94 M/mm3 (3.65-5.03); Red Cell Distribution Width 13.2 % (13.2-15.2)
[2020-05-17 06:44] LABS: Alanine Aminotransferase 75 units/L (7-56); Albumin 2.9 g/dL (3.9-5); BUN/Creatinine Ratio 28; Blood Urea Nitrogen 22 mg/dL (9-20); Calcium 8.6 mg/dL (8.4-10.2); Hemolysis Index 2
--- NOTE | 2020-05-17 08:47 | Progress Note ---
Assessment and Plan Assessment and plan: Patient remains hypoxemic, requiring high flow oxygen and BiPAP Patient is in mild distress, secondary to severe COVID-19 pneumonia And severe hypoxemia, critically ill with poor prognosis. --Elevated D-dimers; on full dose anticoagulation However ID requested to get CTA chest, patient is unstable to go for CT As he is requiring high flow oxygen. -- Acute hypoxemic respiratory failure; Requiring continuous very high flow oxygen Patient is on 100% nonrebreather continuous Patient has severe COVID-19 bilateral pneumonia Very high inflammatory markers Critically ill with poor prognosis Close monitoring in IMCU/ICU If no improvement intubate --Elevated D-dimers; check CTA to rule out PE Lower extremity venous Doppler to rule out DVT Patient is already on full dose anticoagulation per COVID-19 protocol -- Novel coronavirus infection with Bilateral pneumonia Coronavirus protocol: IV steroid therapy, IV remdesivir, isolation precautions, contact precautions, prone positioning while in bed, pulmonary toilet. consulted ID --Severe sepsis, due to COVID 19 PNA cont to treat for COVID -- Acute kidney injury (SEN) , likely vasomotor nephropathy Resolved, IV fluids, avoid nephrotoxins -- Alcohol dependence; no episodes of withdrawal symptoms Thiamine, folic acid, multivitamin, CIWA protocol. -- Elevated liver function tests Suspected secondary to alcoholic liver disease. Supportive care, alcohol cessation, patient counseled. -- DVT prophylaxis prophylactic AC with lovenox for elevated D-dimer We will closely monitor patient and adjust management as needed Plan of care reviewed with the patient and his nurse Patient has severe Covid pneumonia, severe hypoxia Critically ill very poor prognosis Full CODE STATUS The high probability of a clinically significant, sudden or life threatening deterioration of the [Covid pneumonia, ID, respiratory, liver] system(s) required my full and direct attention, intervention and personal management. The aggregate critical care time was [32] minutes. This time is in addition to time spent performing reported procedures but includes the following: [x] Data Review and interpretation [x] Patient assessment and monitoring of vital signs [x] Documentation [x] Medication orders and management 05/17/2020; patient with severe COVID-19 pneumonia, in isolation room Patient is on high flow oxygen, and BiPAP History Interval history: I have seen and examined the patient at the bedside Isolation precautions and PPE protocols fully observed Patient remains hypoxic in mild distress Requiring continuous BiPAP/high flow oxygen Patient complains of generalized weakness Vital signs reviewed Hospitalist Physical - Constitutional Vitals: Temp Pulse Resp BP Pulse Ox 98.2 F 82 18 105/67 94 05/17/20 04:00 05/17/20 06:00 05/17/20 06:00 05/17/20 06:00 05/17/20 08:00 General appearance: Present: mild distress, well-nourished, obese (Morbidly obese), other (Hypoxic on high flow oxygen/on BiPAP today) - EENT Eyes: Present: PERRL, EOM intact ENT: hearing intact, clear oral mucosa - Neck Neck: Present: supple, normal ROM - Respiratory Respiratory effort: normal Respiratory: bilateral: diminished, rhonchi, negative: rales, wheezing - Cardiovascular Rhythm: regular Heart Sounds: Present: S1 & S2 - Extremities Extremities: no ischemia, No edema - Abdominal General gastrointestinal: soft, non-tender, non-distended, normal bowel sounds - Integumentary Integumentary: Present: clear, warm - Psychiatric Psychiatric: appropriate mood/affect, cooperative - Neurologic Neurologic: CNII-XII intact, moves all extremities Results - Labs CBC & Chem 7: 05/17/20 05:50 05/17/20 05:50 Labs: Laboratory Last Values WBC 9.8 K/mm3 (4.5-11.0) 05/17/20 05:50 RBC 3.94 M/mm3 (3.65-5.03) 05/17/20 05:50 Hgb 13.2 gm/dl (11.8-15.2) 05/17/20 05:50 Hct 38.7 % (35.5-45.6) 05/17/20 05:50 MCV 98 fl (84-94) H 05/17/20 05:50 MCH 33 pg (28-32) H 05/17/20 05:50 MCHC 34 % (32-34) 05/17/20 05:50 RDW 13.2 % (13.2-15.2) 05/17/20 05:50 Plt Count 192 K/mm3 (140-440) 05/17/20 05:50 Lymph % (Auto) 8.0 % (13.4-35.0) L 05/17/20 05:50 [place] % (Auto) 2.6 % (0.0-7.3) 05/17/20 05:50 Eos % (Auto) 0.0 % (0.0-4.3) 05/17/20 05:50 Baso % (Auto) 0.1 % (0.0-1.8) 05/17/20 05:50 Lymph # (Auto) 0.8 K/mm3 (1.2-5.4) L 05/17/20 05:50 [place] # (Auto) 0.3 K/mm3 (0.0-0.8) 05/17/20 05:50 Eos # (Auto) 0.0 K/mm3 (0.0-0.4) 05/17/20 05:50 Baso # (Auto) 0.0 K/mm3 (0.0-0.1) 05/17/20 05:50 Add Manual Diff Complete 05/10/20 10:32 Total Counted 100 05/10/20 10:32 Seg Neutrophils % 89.3 % (40.0-70.0) H 05/17/20 05:50 Seg Neuts % (Manual) 89.0 % (40.0-70.0) H 05/10/20 10:32 Band Neutrophils % 1.0 % 05/10/20 10:32 Lymphocytes % (Manual) 8.0 % (13.4-35.0) L 05/10/20 10:32 Reactive Lymphs % (Man) 0 % 05/10/20 10:32 Monocytes % (Manual) 2.0 % (0.0-7.3) 05/10/20 10:32 Eosinophils % (Manual) 0 % (0.0-4.3) 05/10/20 10:32 Basophils % (Manual) 0 % (0.0-1.8) 05/10/20 10:32 Metamyelocytes % 0 % 05/10/20 10:32 Myelocytes % 0 % 05/10/20 10:32 Promyelocytes % 0 % 05/10/20 10:32 Blast Cells % 0 % 05/10/20 10:32 Nucleated RBC % Not Reportable 05/10/20 10:32 Seg Neutrophils # 8.8 K/mm3 (1.8-7.7) H 05/17/20 05:50 Seg Neutrophils # Man 13.7 K/mm3 (1.8-7.7) H 05/10/20 10:32 Band Neutrophils # 0.2 K/mm3 05/10/20 10:32 Lymphocytes # (Manual) 1.2 K/mm3 (1.2-5.4) 05/10/20 10:32 Abs React Lymphs (Man) 0.0 K/mm3 05/10/20 10:32 Monocytes # (Manual) 0.3 K/mm3 (0.0-0.8) 05/10/20 10:32 Eosinophils # (Manual) 0.0 K/mm3 (0.0-0.4) 05/10/20 10:32 Basophils # (Manual) 0.0 K/mm3 (0.0-0.1) 05/10/20 10:32 Metamyelocytes # 0.0 K/mm3 05/10/20 10:32 Myelocytes # 0.0 K/mm3 05/10/20 10:32 Promyelocytes # 0.0 K/mm3 05/10/20 10:32 Blast Cells # 0.0 K/mm3 05/10/20 10:32 WBC Morphology Not Reportable 05/10/20 10:32 Hypersegmented Neuts Not Reportable 05/10/20 10:32 Hyposegmented Neuts Not Reportable 05/10/20 10:32 Hypogranular Neuts Not Reportable 05/10/20 10:32 Smudge Cells Not Reportable 05/10/20 10:32 Toxic Granulation Not Reportable 05/10/20 10:32 Toxic Vacuolation Not Reportable 05/10/20 10:32 Dohle Bodies Not Reportable 05/10/20 10:32 Pelger-Huet Anomaly Not Reportable 05/10/20 10:32 Jason Rods Not Reportable 05/10/20 10:32 Platelet Estimate Consistent w auto 05/10/20 10:32 Clumped Platelets Rare 05/10/20 10:32 Plt Clumps, EDTA Not Reportable 05/10/20 10:32 Large Platelets Not Reportable 05/10/20 10:32 Giant Platelets Not Reportable 05/10/20 10:32 Platelet Satelliting Not Reportable 05/10/20 10:32 Plt Morphology Comment Not Reportable 05/10/20 10:32 RBC Morphology Normal 05/10/20 10:32 Dimorphic RBCs Not Reportable 05/10/20 10:32 Polychromasia Not Reportable 05/10/20 10:32 Hypochromasia Not Reportable 05/10/20 10:32 Poikilocytosis Not Reportable 05/10/20 10:32 Anisocytosis Not Reportable 05/10/20 10:32 Microcytosis Not Reportable 05/10/20 10:32 Macrocytosis Not Reportable 05/10/20 10:32 Spherocytes Not Reportable 05/10/20 10:32 Pappenheimer Bodies Not Reportable 05/10/20 10:32 Sickle Cells Not Reportable 05/10/20 10:32 Target Cells Not Reportable 05/10/20 10:32 Tear Drop Cells Not Reportable 05/10/20 10:32 Ovalocytes Not Reportable 05/10/20 10:32 Helmet Cells Not Reportable 05/10/20 10:32 [place] Bodies Not Reportable 05/10/20 10:32 [place] Rings Not Reportable 05/10/20 10:32 [place] Cells Not Reportable 05/10/20 10:32 Bite Cells Not Reportable 05/10/20 10:32 Crenated Cell Not Reportable 05/10/20 10:32 Elliptocytes Not Reportable 05/10/20 10:32 Acanthocytes (Spur) Not Reportable 05/10/20 10:32 Rouleaux Not Reportable 05/10/20 10:32 Hemoglobin C Crystals Not Reportable 05/10/20 10:32 Schistocytes Not Reportable 05/10/20 10:32 Malaria parasites Not Reportable 05/10/20 10:32 Josue Bodies Not Reportable 05/10/20 10:32 Hem Pathologist Commnt No 05/10/20 10:32 D-Dimer 2911.42 ng/mlDDU (0-234) H 05/17/20 05:50 ABG pH 7.428 (7.320-7.450) 05/09/20 15:56 POC ABG pCO2 34.0 mmHg (32.0-48.0) 05/09/20 15:56 POC ABG pO2 57.3 mmHg (83-108) L 05/09/20 15:56 POC ABG HCO3 22.0 05/09/20 15:56 POC ABG Base Excess -1.7 05/09/20 15:56 ABG Hemoglobin 13.7 (12.0-17.5) 05/09/20 15:56 ABG Oxyhemoglobin 86.3 (94-98) L 05/09/20 15:56 ABG Methemoglobin 0.3 (0.0-1.5) 05/09/20 15:56 ABG Sodium 129.9 mmol/L (136.0-145.0) L 05/09/20 15:56 ABG Potassium 3.4 mmol/L (3.40-4.50) 05/09/20 15:56 ABG Chloride 100.0 mmol/L (98-107) 05/09/20 15:56 ABG Glucose 146 mg/dL (65-95) H 05/09/20 15:56 Carboxyhemoglobin 1.3 (0.5-1.5) 05/09/20 15:56 FiO2 100 05/09/20 15:56 Sodium 136 mmol/L (137-145) L 05/17/20 05:50 Potassium 4.3 mmol/L (3.6-5.0) 05/17/20 05:50 Chloride 96.0 mmol/L (98-107) L 05/17/20 05:50 Carbon Dioxide 34 mmol/L (22-30) H 05/17/20 05:50 Anion Gap 10 mmol/L 05/17/20 05:50 BUN 22 mg/dL (9-20) H 05/17/20 05:50 Creatinine 0.8 mg/dL (0.8-1.3) 05/17/20 05:50 Estimated GFR > 60 ml/min 05/17/20 05:50 BUN/Creatinine Ratio 28 % 05/17/20 05:50 Glucose 140 mg/dL (75-100) H 05/17/20 05:50 Lactic Acid 1.80 mmol/L (0.7-2.0) 05/09/20 Unknown Calcium 8.6 mg/dL (8.4-10.2) 05/17/20 05:50 Phosphorus 3.20 mg/dL (2.5-4.5) 05/13/20 05:20 Magnesium 2.60 mg/dL (1.7-2.3) H 05/13/20 05:20 Ferritin 2082.0 ng/mL (30.0-300.0) H 05/17/20 05:50 Total Bilirubin 1.00 mg/dL (0.1-1.2) 05/17/20 05:50 Direct Bilirubin 0.6 mg/dL (0-0.2) H 05/11/20 07:30 Indirect Bilirubin 0.9 mg/dL 05/11/20 07:30 AST 38 units/L (5-40) 05/17/20 05:50 ALT 75 units/L (7-56) H 05/17/20 05:50 Alkaline Phosphatase 82 units/L (35-129) 05/17/20 05:50 Lactate Dehydrogenase 601 units/L (91-180) H 05/17/20 05:50 C-Reactive Protein 2.70 mg/dL (0.00-1.30) H 05/17/20 05:50 Total Protein 6.6 g/dL (6.3-8.2) 05/17/20 05:50 Albumin 2.9 g/dL (3.9-5) L 05/17/20 05:50 Albumin/Globulin Ratio 0.8 % 05/17/20 05:50 Procalcitonin 4.47 ng/mL (<0.15) 05/09/20 12:59 Arterial Blood Glucose 146 mg/dL (65-95) H 05/09/20 15:56 Arterial Blood Ionized Calcium 3.9 mg/dL (4.6-5.3) L 05/09/20 15:56 Urine Color Fauzia (Yellow) 05/10/20 Unknown Urine Turbidity Clear (Clear) 05/10/20 Unknown Urine pH 5.0 (5.0-7.0) 05/10/20 Unknown Ur Specific [place] 1.019 (1.003-1.030) 05/10/20 Unknown Urine Protein 100 mg/dl mg/dL (Negative) 05/10/20 Unknown Urine Glucose (UA) Neg mg/dL (Negative) 05/10/20 Unknown Urine Ketones Neg mg/dL (Negative) 05/10/20 Unknown Urine Blood Lg (Negative) 05/10/20 Unknown Urine Nitrite Neg (Negative) 05/10/20 Unknown Urine Bilirubin Neg (Negative) 05/10/20 Unknown Urine Urobilinogen 2.0 mg/dL (<2.0) 05/10/20 Unknown Ur Leukocyte Esterase Neg (Negative) 05/10/20 Unknown Urine WBC (Auto) 11.0 /HPF (0.0-6.0) H 05/10/20 Unknown Urine RBC (Auto) 2.0 /HPF (0.0-6.0) 05/10/20 Unknown U Epithel Cells (Auto) 1.0 /HPF (0-13.0) 05/10/20 Unknown Urine Bacteria (Auto) 1+ /HPF (Negative) 05/10/20 Unknown Urine Mucus Few /HPF 05/10/20 Unknown Plasma/Serum Alcohol < 0.01 % (0-0.07) 05/09/20 14:20 Coronavirus (PCR) Positive (Negative) A 05/10/20 Unknown SARS-CoV-2 IgG Ab Reactive (NonReactive) A 05/11/20 07:30 [place]/IV: Voiding Method Urinal IV Catheter Type [Left Peripheral IV Antecubital] Active Medications - Current Medications Current Medications: Generic Name Dose Route Start Last Admin Trade Name Freq PRN Reason Stop Dose Admin Acetaminophen 650 mg 05/09/20 13:37 05/15/20 13:07 Tylenol PO 650 mg Q4H PRN Administration Pain MILD(1-3)/Fever >100.5/KERR Enoxaparin Sodium 110 mg 05/10/20 22:00 05/16/20 21:41 Enoxaparin 1 mg/kg (110 mg) 110 mg SUB-Q Administration Q12HR [facility] Protocol Folic Acid 1 mg 05/09/20 15:36 05/16/20 09:01 Folvite PO 1 mg QDAY DESIRE Administration Guaifenesin 10 ml 05/16/20 22:38 05/17/20 00:08 Guaifenesin Dm Syrup PO 10 ml Q4H PRN Administration Cough Lorazepam 2 mg 05/09/20 15:40 Ativan IV Q1HR PRN CIWA-Ar 8-15 Methylprednisolone Sodium Succinate 40 mg 05/09/20 16:00 05/17/20 08:03 Solu-Medrol IV 40 mg Q8H DESIRE Administration Ondansetron HCl 4 mg 05/09/20 13:37 Zofran IV Q8H PRN Nausea And Vomiting Sodium Chloride 10 ml 05/09/20 22:00 05/16/20 21:41 Sodium Chloride Flush Syringe 10 Ml IV 10 ml BID DESIRE Administration Sodium Chloride 10 ml 05/09/20 13:37 Sodium Chloride Flush Syringe 10 Ml IV PRN PRN LINE FLUSH
--- NOTE | 2020-05-17 09:21 | XRay Report ---
CHEST 1 VIEW INDICATION: f/u pneumonia. COMPARISON: 05/09/2020 FINDINGS: Support devices: None. Heart: Normal. Lungs/Pleura: Rather diffuse, somewhat patchy bilateral airspace disease persists. This appears sligh tly worsened. No significant effusion, no pneumothorax. IMPRESSION: 1. Persistent diffuse patchy bilateral airspace disease. Apparent interval worsening may be due at le ast in part due to low lung volumes on today's exam. Signer Name: Salvador Pool MD Signed: 05/17/2020 9:16 AM Workstation Name: [id number]
[2020-05-17] MEDS: FOLIC ACID 1 MG TAB PO SCH (10:48)
[2020-05-17] MEDS: ENOXAPARIN 120 MG/0.8 ML INJ SUB-Q SCH ×2 (10:48→22:03)
--- NOTE | 2020-05-17 14:31 | Progress Note ---
Assessment and Plan Cultures: Blood culture 04/28/2020 no growth today SARS CoV2 PCR positive Assessment: 50 years old male with history of alcohol dependence and obesity admitted on 05/09/2020 due to 5-day history of generalized malaise, fatigue, body aches, dyspnea exertion, cough and shortness of breath, tested positive for COVID-19 2 days before admission: #Severe sepsis: Improving; likely due to bilateral pneumonia. #Severe COVID pneumonia: Chest x-ray with bilateral patchy infiltrates. SARS-CoV-2 PCR positive. Inflammatory markers markedly elevated, D-dimer 10,000, ferritin 38,000. Noted elevated procalcitonin likely due to elevated creatinine, however will cover for bacterial component given severe sepsis. #Acute hypoxemic respiratory failure: O2 sats dropped to 63% on admission, currently on high flow nasal cannula 100%, 40 L. #Elevated LFTs: from COVID, however no higher than 10 times normal. #SEN: from COVID, already improving. #Elevated D-dimer: Venous ultrasound no DVT. Recommendations: -Close monitoring -Obtain chest CTA r/o PE -when stable -Pulmonary on board -SARS CoV-2 IgG positive patient is NOT a candidate for COVID convalescent plasma -Patient started on Solu-Medrol -Completed remdesivir -Monitor inflammatory markers - ferritin, Ddimer, CRP, LDH -Completed ceftriaxone/azithromycin -Continue anticoagulation per System Protocol -continue full dose antic oagulation given elevated D-dimer -Prone positioning as possible All laboratory, cultures and imaging were reviewed. Will follow Arcelia Acosta MD Infectious Diseases Fourth Officer [facility], [place] [facility] M [phone] O [phone] Subjective Date of service: 05/17/20 Principal diagnosis: Ac hypoxemic resp failure; COVID-19; Severe Sepsis; Shaggy PNA; Alcohol Abuse Interval history: Remains on high flow NC no fever x 48h Objective - Exam Narrative Exam: Physical Exam: reviewed ED and hospitalist notes, limited due to conservation of PPE and decrease risk of transmission. General appearance: limited due to conservation of PPE Eyes: limited due to conservation of PPE HENT: Atraumatic; limited due to conservation of PPE Lungs: limited due to conservation of PPE CV: limited due to conservation of PPE Abdomen: limited due to conservation of PPE Extremities: limited due to conservation of PPE Skin: limited due to conservation of PPE Psych: limited due to conservation of PPE Neuro: limited due to conservation of PPE - Constitutional Vitals: Vital Signs Temp Pulse Resp BP Pulse Ox 98.2 F 102 H 18 94/69 86 05/17/20 04:00 05/17/20 12:01 05/17/20 12:01 05/17/20 12:01 05/17/20 12:01 Temperature -Last 24 Hours Temperature 98.2 F Temperature 98.6 F Temperature 98.6 F Temperature 98.1 F - Labs CBC & Chem 7: 05/17/20 05:50 05/17/20 05:50 Labs: Abnormal lab results 05/17/20 05/17/20 05/17/20 Range/Units 05:50 05:50 05:50 MCV (84-94) fl MCH (28-32) pg Lymph % (Auto) (13.4-35.0) % Lymph # (Auto) (1.2-5.4) K/mm3 Seg Neutrophils % (40.0-70.0) % Seg Neutrophils # (1.8-7.7) K/mm3 D-Dimer 2911.42 H (0-234) ng/mlDDU Sodium 136 L (137-145) mmol/L Chloride 96.0 L (98-107) mmol/L Carbon Dioxide 34 H (22-30) mmol/L BUN 22 H (9-20) mg/dL Glucose 140 H (75-100) mg/dL Ferritin 2082.0 H (30.0-300.0) ng/mL ALT 75 H (7-56) units/L Lactate Dehydrogenase 601 H (91-180) units/L C-Reactive Protein 2.70 H (0.00-1.30) mg/dL Albumin 2.9 L (3.9-5) g/dL 05/17/20 Range/Units 05:50 MCV 98 H (84-94) fl MCH 33 H (28-32) pg Lymph % (Auto) 8.0 L (13.4-35.0) % Lymph # (Auto) 0.8 L (1.2-5.4) K/mm3 Seg Neutrophils % 89.3 H (40.0-70.0) % Seg Neutrophils # 8.8 H (1.8-7.7) K/mm3 D-Dimer (0-234) ng/mlDDU Sodium (137-145) mmol/L Chloride (98-107) mmol/L Carbon Dioxide (22-30) mmol/L BUN (9-20) mg/dL Glucose (75-100) mg/dL Ferritin (30.0-300.0) ng/mL ALT (7-56) units/L Lactate Dehydrogenase (91-180) units/L C-Reactive Protein (0.00-1.30) mg/dL Albumin (3.9-5) g/dL
--- NOTE | 2020-05-17 18:15 | Progress Note ---
Assessment and Plan Patient awake. Patients O2 requirements still very high. Patient is on vapotherm FIO2 100% and O2 saturation running 89%.Patient is on BIPAP 14/8, rate 12 , FIO2 80% standby in the room. No acute respiratory distress. Patient afebrile and has no leukocytosis. Patients D dimer 2911.42. Ferritin 2088. LDH 601. C reactive protein 2.7. Chest xray 05/17/20 reported Persistent diffuse patchy bilateral airspace disease. Apparent interval worsening Patient finished course of REMDESIVIR, ceftrioxane and zithromax . Patient is on methlprednisone and S/C Lovenox. I have seen the patient in [facility]. I spent critical care time of 35 minutes , Reviewing the chart,examining patient, Review labs , chest xray , talking to the respiratory therapy and nursing staff and work out plan of treatment in this critically sick patient. - Patient Problems (1) Acute respiratory failure due to COVID-19 Current Visit: Yes Status: Acute Plan to address problem: BIPAP 14/8, rate 12, FIO2 80%. Continue I/V solumedrol. Convert aerosol treatments to metered dose inhalers Continue S/C Lovenox. Patient finished course of REMDESIVIR, Ceftrioxana and zithromax. (2) Bilateral pneumonia Current Visit: Yes Status: Acute Plan to address problem: Patient finished course of ceftrioxane and Zithromax. (3) Acute kidney injury (SEN) with acute tubular necrosis (ATN) Current Visit: Yes Status: Acute Plan to address problem: Management as per nephrology. (4) Alcohol dependence Current Visit: Yes Status: Acute Qualifiers: Substance use status: uncomplicated Qualified Code(s): F10.20 - Alcohol dependence, uncomplicated Plan to address problem: Management as per primary care. (5) Elevated liver function tests Current Visit: Yes Status: Acute Plan to address problem: Liver enzymes elevated either from his alcoholic abuse or from COVID 19 infection. Subjective Date of service: 05/17/20 Principal diagnosis: Ac hypoxemic resp failure; COVID-19; Severe Sepsis; Shaggy PNA; Alcohol Abuse Interval history: Patient awake. Patients O2 requirements still very high. Patient is on vapotherm FIO2 100% and O2 saturation running 89%.Patient is on BIPAP 14/8, rate 12 , FIO2 80% standby in the room. No acute respiratory distress. Patient afebrile and has no leukocytosis. Patients D dimer 2911.42. Ferritin 2088. LDH 601. C reactive protein 2.7. Chest xray 05/17/20 reported Persistent diffuse patchy bilateral airspace disease. Apparent interval worsening Patient finished course of REMDESIVIR, ceftrioxane and zithromax . Patient is on methlprednisone and S/C Lovenox. Objective Vital Signs - 12hr 05/17/20 05/17/20 05/17/20 07:00 08:00 09:00 Temperature 98.3 F Pulse Rate 81 92 H 101 H Pulse Rate [ 92 H From Monitor] Respiratory 19 18 25 H Rate Blood Pressure 115/63 111/65 127/80 O2 Sat by Pulse 94 91 88 Oximetry 05/17/20 05/17/20 05/17/20 10:00 11:01 12:00 Temperature Pulse Rate 98 H Pulse Rate [ 102 H From Monitor] Respiratory 19 22 18 Rate Blood Pressure 134/86 127/80 O2 Sat by Pulse 89 100 86 Oximetry 05/17/20 05/17/20 05/17/20 12:01 13:01 14:00 Temperature Pulse Rate 102 H 107 H 115 H Pulse Rate [ From Monitor] Respiratory 18 27 H 18 Rate Blood Pressure 94/69 119/82 124/64 O2 Sat by Pulse 86 91 90 Oximetry 05/17/20 15:00 Temperature Pulse Rate 109 H Pulse Rate [ From Monitor] Respiratory 21 Rate Blood Pressure 129/80 O2 Sat by Pulse 93 Oximetry Constitutional: no acute distress, alert Eyes: non-icteric ENT: oropharynx moist, other (mallampati 3) Neck: supple, no JVD Effort: mildly labored Ascultation: Bilateral: diminished breath sounds, rhonchi (scant) Percussion: Bilateral: not dull Cardiovascular: regular rate and rhythm Gastrointestinal: normoactive bowel sounds, soft, non-tender, non-distended (protuberant) Integumentary: normal Extremities: no cyanosis, no edema, pulses normal, no ischemia or petechiae Neurologic: normal mental status, non-focal exam, pupils equal and round, CN II- XII normal, motor strength normal and Psychiatric: mood appropriate, affect normal CBC and BMP: 05/17/20 05:50 05/17/20 05:50 ABG, PT/INR, D-dimer: ABG ABG pH 7.428 (7.320-7.450) 05/09/20 15:56 POC ABG pCO2 34.0 mmHg (32.0-48.0) 05/09/20 15:56 POC ABG pO2 57.3 mmHg (83-108) L 05/09/20 15:56 POC ABG HCO3 22.0 05/09/20 15:56 PT/INR, D-dimer D-Dimer 2911.42 ng/mlDDU (0-234) H 05/17/20 05:50 Abnormal lab findings: Abnormal Labs 05/09/20 05/09/20 05/09/20 12:59 12:59 12:59 WBC 11.8 H MCV 96 H MCH 34 H MCHC 35 H RDW Lymph % (Auto) 6.9 L Lymph # (Auto) 0.8 L Seg Neutrophils % 87.5 H Seg Neuts % (Manual) Lymphocytes % (Manual) Seg Neutrophils # 10.3 H Seg Neutrophils # Man D-Dimer POC ABG pO2 ABG Oxyhemoglobin ABG Sodium ABG Glucose Sodium 130 L Potassium 3.5 L Chloride 86.4 L Carbon Dioxide BUN 33 H Creatinine 2.3 H Glucose 156 H Lactic Acid Calcium Magnesium Ferritin Total Bilirubin 3.40 H Direct Bilirubin 1.7 H AST 385 H ALT 134 H Lactate Dehydrogenase C-Reactive Protein Total Protein Albumin 3.0 L Arterial Blood Glucose Arterial Blood Ionized Calcium Urine WBC (Auto) Coronavirus (PCR) SARS-CoV-2 IgG Ab 05/09/20 05/09/20 05/09/20 12:59 12:59 12:59 WBC MCV MCH MCHC RDW Lymph % (Auto) Lymph # (Auto) Seg Neutrophils % Seg Neuts % (Manual) Lymphocytes % (Manual) Seg Neutrophils # Seg Neutrophils # Man D-Dimer 3242.51 H POC ABG pO2 ABG Oxyhemoglobin ABG Sodium ABG Glucose Sodium Potassium Chloride Carbon Dioxide BUN Creatinine Glucose 158 H Lactic Acid 3.50 H* Calcium Magnesium Ferritin Total Bilirubin Direct Bilirubin AST ALT Lactate Dehydrogenase 2166 H C-Reactive Protein 39.00 H Total Protein Albumin Arterial Blood Glucose Arterial Blood Ionized Calcium Urine WBC (Auto) Coronavirus (PCR) SARS-CoV-2 IgG Ab 05/09/20 05/09/20 05/09/20 12:59 14:20 14:20 WBC MCV MCH MCHC RDW Lymph % (Auto) Lymph # (Auto) Seg Neutrophils % Seg Neuts % (Manual) Lymphocytes % (Manual) Seg Neutrophils # Seg Neutrophils # Man D-Dimer 2861.78 H POC ABG pO2 ABG Oxyhemoglobin ABG Sodium ABG Glucose Sodium Potassium Chloride Carbon Dioxide BUN Creatinine Glucose Lactic Acid 2.20 H* Calcium Magnesium Ferritin 48026.0 H Total Bilirubin Direct Bilirubin AST ALT Lactate Dehydrogenase C-Reactive Protein Total Protein Albumin Arterial Blood Glucose Arterial Blood Ionized Calcium Urine WBC (Auto) Coronavirus (PCR) SARS-CoV-2 IgG Ab 05/09/20 05/09/20 05/09/20 14:20 14:20 15:56 WBC MCV MCH MCHC RDW Lymph % (Auto) Lymph # (Auto) Seg Neutrophils % Seg Neuts % (Manual) Lymphocytes % (Manual) Seg Neutrophils # Seg Neutrophils # Man D-Dimer POC ABG pO2 57.3 L ABG Oxyhemoglobin 86.3 L ABG Sodium 129.9 L ABG Glucose 146 H Sodium Potassium Chloride Carbon Dioxide BUN Creatinine Glucose 143 H Lactic Acid Calcium Magnesium Ferritin 79750.0 H Total Bilirubin Direct Bilirubin AST ALT Lactate Dehydrogenase 1953 H C-Reactive Protein 33.50 H Total Protein Albumin Arterial Blood Glucose 146 H Arterial Blood Ionized Calcium 3.9 L Urine WBC (Auto) Coronavirus (PCR) SARS-CoV-2 IgG Ab 05/10/20 05/10/20 05/10/20 10:32 10:32 18:50 WBC 15.4 H MCV 97 H MCH 33 H MCHC RDW 13.1 L Lymph % (Auto) Lymph # (Auto) Seg Neutrophils % Seg Neuts % (Manual) 89.0 H Lymphocytes % (Manual) 8.0 L Seg Neutrophils # Seg Neutrophils # Man 13.7 H D-Dimer POC ABG pO2 ABG Oxyhemoglobin ABG Sodium ABG Glucose Sodium 136 L Potassium Chloride 97.4 L Carbon Dioxide BUN 37 H Creatinine 1.7 H Glucose 209 H Lactic Acid Calcium Magnesium Ferritin > 2000.0 H Total Bilirubin Direct Bilirubin AST ALT Lactate Dehydrogenase C-Reactive Protein Total Protein Albumin Arterial Blood Glucose Arterial Blood Ionized Calcium Urine WBC (Auto) Coronavirus (PCR) SARS-CoV-2 IgG Ab 05/10/20 05/10/20 05/10/20 18:50 19:00 Unknown WBC MCV MCH MCHC RDW Lymph % (Auto) Lymph # (Auto) Seg Neutrophils % Seg Neuts % (Manual) Lymphocytes % (Manual) Seg Neutrophils # Seg Neutrophils # Man D-Dimer > 91958 H POC ABG pO2 ABG Oxyhemoglobin ABG Sodium ABG Glucose Sodium Potassium Chloride Carbon Dioxide BUN Creatinine Glucose Lactic Acid Calcium Magnesium Ferritin Total Bilirubin Direct Bilirubin AST ALT Lactate Dehydrogenase 1879 H C-Reactive Protein 24.80 H Total Protein Albumin Arterial Blood Glucose Arterial Blood Ionized Calcium Urine WBC (Auto) 11.0 H Coronavirus (PCR) SARS-CoV-2 IgG Ab 05/10/20 05/11/20 05/11/20 Unknown 07:30 07:30 WBC MCV MCH MCHC RDW Lymph % (Auto) Lymph # (Auto) Seg Neutrophils % Seg Neuts % (Manual) Lymphocytes % (Manual) Seg Neutrophils # Seg Neutrophils # Man D-Dimer > 2000 H POC ABG pO2 ABG Oxyhemoglobin ABG Sodium ABG Glucose Sodium Potassium Chloride 96.3 L Carbon Dioxide BUN 36 H Creatinine Glucose 161 H Lactic Acid Calcium 8.3 L Magnesium Ferritin Total Bilirubin 1.50 H Direct Bilirubin 0.6 H AST 178 H ALT 111 H Lactate Dehydrogenase C-Reactive Protein Total Protein Albumin 3.0 L Arterial Blood Glucose Arterial Blood Ionized Calcium Urine WBC (Auto) Coronavirus (PCR) Positive A SARS-CoV-2 IgG Ab 05/11/20 05/11/20 05/11/20 07:30 07:30 07:30 WBC MCV MCH MCHC RDW Lymph % (Auto) Lymph # (Auto) Seg Neutrophils % Seg Neuts % (Manual) Lymphocytes % (Manual) Seg Neutrophils # Seg Neutrophils # Man D-Dimer POC ABG pO2 ABG Oxyhemoglobin ABG Sodium ABG Glucose Sodium Potassium Chloride Carbon Dioxide BUN Creatinine Glucose Lactic Acid Calcium Magnesium Ferritin 08985.0 H Total Bilirubin Direct Bilirubin AST ALT Lactate Dehydrogenase 1523 H C-Reactive Protein 12.90 H Total Protein Albumin Arterial Blood Glucose Arterial Blood Ionized Calcium Urine WBC (Auto) Coronavirus (PCR) SARS-CoV-2 IgG Ab Reactive A 05/13/20 05/13/20 05/15/20 05:20 05:20 08:15 WBC MCV MCH MCHC RDW Lymph % (Auto) Lymph # (Auto) Seg Neutrophils % Seg Neuts % (Manual) Lymphocytes % (Manual) Seg Neutrophils # Seg Neutrophils # Man D-Dimer > 34608 H 5318.28 H POC ABG pO2 ABG Oxyhemoglobin ABG Sodium ABG Glucose Sodium Potassium Chloride Carbon Dioxide 32 H BUN 30 H Creatinine Glucose 156 H Lactic Acid Calcium Magnesium 2.60 H Ferritin Total Bilirubin 1.40 H Direct Bilirubin AST 121 H ALT 119 H Lactate Dehydrogenase 957 H C-Reactive Protein 4.00 H Total Protein Albumin 3.0 L Arterial Blood Glucose Arterial Blood Ionized Calcium Urine WBC (Auto) Coronavirus (PCR) SARS-CoV-2 IgG Ab 05/15/20 05/15/20 05/15/20 08:15 08:15 08:15 WBC 12.4 H MCV 98 H MCH 33 H MCHC RDW Lymph % (Auto) 9.7 L Lymph # (Auto) Seg Neutrophils % 86.8 H Seg Neuts % (Manual) Lymphocytes % (Manual) Seg Neutrophils # 10.8 H Seg Neutrophils # Man D-Dimer POC ABG pO2 ABG Oxyhemoglobin ABG Sodium ABG Glucose Sodium Potassium Chloride 94.8 L Carbon Dioxide 32 H BUN 22 H Creatinine Glucose 115 H Lactic Acid Calcium 8.3 L Magnesium Ferritin 2494.0 H Total Bilirubin Direct Bilirubin AST 73 H ALT 121 H Lactate Dehydrogenase 835 H C-Reactive Protein 3.40 H Total Protein 6.1 L Albumin 3.0 L Arterial Blood Glucose Arterial Blood Ionized Calcium Urine WBC (Auto) Coronavirus (PCR) SARS-CoV-2 IgG Ab 05/17/20 05/17/20 05/17/20 05:50 05:50 05:50 WBC MCV MCH MCHC RDW Lymph % (Auto) Lymph # (Auto) Seg Neutrophils % Seg Neuts % (Manual) Lymphocytes % (Manual) Seg Neutrophils # Seg Neutrophils # Man D-Dimer 2911.42 H POC ABG pO2 ABG Oxyhemoglobin ABG Sodium ABG Glucose Sodium 136 L Potassium Chloride 96.0 L Carbon Dioxide 34 H BUN 22 H Creatinine Glucose 140 H Lactic Acid Calcium Magnesium Ferritin 2082.0 H Total Bilirubin Direct Bilirubin AST ALT 75 H Lactate Dehydrogenase 601 H C-Reactive Protein 2.70 H Total Protein Albumin 2.9 L Arterial Blood Glucose Arterial Blood Ionized Calcium Urine WBC (Auto) Coronavirus (PCR) SARS-CoV-2 IgG Ab 05/17/20 05:50 WBC MCV 98 H MCH 33 H MCHC RDW Lymph % (Auto) 8.0 L Lymph # (Auto) 0.8 L Seg Neutrophils % 89.3 H Seg Neuts % (Manual) Lymphocytes % (Manual) Seg Neutrophils # 8.8 H Seg Neutrophils # Man D-Dimer POC ABG pO2 ABG Oxyhemoglobin ABG Sodium ABG Glucose Sodium Potassium Chloride Carbon Dioxide BUN Creatinine Glucose Lactic Acid Calcium Magnesium Ferritin Total Bilirubin Direct Bilirubin AST ALT Lactate Dehydrogenase C-Reactive Protein Total Protein Albumin Arterial Blood Glucose Arterial Blood Ionized Calcium Urine WBC (Auto) Coronavirus (PCR) SARS-CoV-2 IgG Ab Chest x-ray: report reviewed, image reviewed Additional Studies: CHEST 1 VIEW 05/17/20 INDICATION: f/u pneumonia. COMPARISON: 05/09/2020 FINDINGS: Support devices: None. Heart: Normal. Lungs/Pleura: Rather diffuse, somewhat patchy bilateral airspace disease persists. This appears slightly worsened. No significant effusion, no pneumothorax. IMPRESSION: 1. Persistent diffuse patchy bilateral airspace disease. Apparent interval worsening may be due at least in part due to low lung volumes on today's exam. Allied health notes reviewed: nursing
--- NOTE | 2020-05-18 09:34 | Progress Note ---
Assessment and Plan Patient awake. Patients O2 requirements still very high. Patient is on vapotherm FIO2 100% and O2 saturation running 89%.Patient is on BIPAP 14/8, rate 12 , FIO2 80% standby in the room. Patient says breathing better. Patient afebrile and has no leukocytosis. Patients D dimer 2911.42. Ferritin 2088. LDH 601. C reactive protein 2.7. Chest xray 05/17/20 reported Persistent diffuse patchy bilateral airspace disease. Apparent interval worsening Patient finished course of REMDESIVIR, ceftrioxane and zithromax . Patient is on methylprednisone and S/C Lovenox. Recommend Physical therapy to make him out of bed and sitting up in chair. Also recommend incentive spirometry. I have seen the patient in IM. I spent critical care time of 35 minutes , Reviewing the chart,examining patient, Review labs , chest xray , talking to the respiratory therapy and nursing staff and work out plan of treatment in this critically sick patient. - Patient Problems (1) Acute respiratory failure due to COVID-19 Current Visit: Yes Status: Acute Plan to address problem: BIPAP 14/8, rate 12, FIO2 80%. Continue I/V solumedrol. Convert aerosol treatments to metered dose inhalers Continue S/C Lovenox. Patient finished course of REMDESIVIR, Ceftrioxana and zithromax. (2) Bilateral pneumonia Current Visit: Yes Status: Acute Plan to address problem: Patient finished course of ceftrioxane and Zithromax. (3) Acute kidney injury (SEN) with acute tubular necrosis (ATN) Current Visit: Yes Status: Acute Plan to address problem: Management as per nephrology. (4) Alcohol dependence Current Visit: Yes Status: Acute Qualifiers: Substance use status: uncomplicated Qualified Code(s): F10.20 - Alcohol dependence, uncomplicated Plan to address problem: Management as per primary care. (5) Elevated liver function tests Current Visit: Yes Status: Acute Plan to address problem: Liver enzymes elevated either from his alcoholic abuse or from COVID 19 infection. Subjective Date of service: 05/18/20 Principal diagnosis: Ac hypoxemic resp failure; COVID-19; Severe Sepsis; Shaggy PNA; Alcohol Abuse Interval history: Patient awake. Patients O2 requirements still very high. Patient is on vapotherm FIO2 100% and O2 saturation running 89%.Patient is on BIPAP 14/8, rate 12 , FIO2 80% standby in the room. Patient says breathing better. Patient afebrile and has no leukocytosis. Patients D dimer 2911.42. Ferritin 2088. LDH 601. C reactive protein 2.7. Chest xray 05/17/20 reported Persistent diffuse patchy bilateral airspace disease. Apparent interval worsening Patient finished course of REMDESIVIR, ceftrioxane and zithromax . Patient is on methylprednisone and S/C Lovenox. Recommend Physical therapy to make him out of bed and sitting up in chair. Also recommend incentive spirometry. Objective Vital Signs - 12hr 05/17/20 05/17/20 05/17/20 22:00 22:10 23:00 Temperature Pulse Rate 93 H 95 H 93 H Pulse Rate [ From Monitor] Respiratory 23 27 H 20 Rate Blood Pressure 133/85 142/79 123/84 O2 Sat by Pulse 91 92 88 Oximetry 05/18/20 05/18/20 05/18/20 00:00 01:00 02:01 Temperature 97.4 F L Pulse Rate 93 H 94 H 89 Pulse Rate [ 96 H From Monitor] Respiratory 23 26 H 23 Rate Blood Pressure 115/76 115/76 120/76 O2 Sat by Pulse 91 85 90 Oximetry 05/18/20 05/18/20 05/18/20 03:00 04:00 05:00 Temperature 98.3 F Pulse Rate 96 H 91 H 91 H Pulse Rate [ 19 L From Monitor] Respiratory 22 29 H 23 Rate Blood Pressure 106/77 111/77 118/78 O2 Sat by Pulse 90 94 96 Oximetry 05/18/20 05/18/20 06:00 08:00 Temperature Pulse Rate 88 Pulse Rate [ From Monitor] Respiratory 22 Rate Blood Pressure 105/70 O2 Sat by Pulse 94 89 Oximetry Constitutional: no acute distress, alert Eyes: non-icteric ENT: oropharynx moist, other (mallampati 3) Neck: supple, no JVD Effort: mildly labored Ascultation: Bilateral: diminished breath sounds, rhonchi (scant) Percussion: Bilateral: not dull Cardiovascular: regular rate and rhythm Gastrointestinal: normoactive bowel sounds, soft, non-tender, non-distended (protuberant) Integumentary: normal Extremities: no cyanosis, no edema, pulses normal, no ischemia or petechiae Neurologic: normal mental status, non-focal exam, pupils equal and round, CN II- XII normal, motor strength normal and Psychiatric: mood appropriate, affect normal CBC and BMP: 05/17/20 05:50 05/17/20 05:50 ABG, PT/INR, D-dimer: ABG ABG pH 7.428 (7.320-7.450) 05/09/20 15:56 POC ABG pCO2 34.0 mmHg (32.0-48.0) 05/09/20 15:56 POC ABG pO2 57.3 mmHg (83-108) L 05/09/20 15:56 POC ABG HCO3 22.0 05/09/20 15:56 PT/INR, D-dimer D-Dimer 2911.42 ng/mlDDU (0-234) H 05/17/20 05:50 Abnormal lab findings: Abnormal Labs 05/09/20 05/09/20 05/09/20 12:59 12:59 12:59 WBC 11.8 H MCV 96 H MCH 34 H MCHC 35 H RDW Lymph % (Auto) 6.9 L Lymph # (Auto) 0.8 L Seg Neutrophils % 87.5 H Seg Neuts % (Manual) Lymphocytes % (Manual) Seg Neutrophils # 10.3 H Seg Neutrophils # Man D-Dimer POC ABG pO2 ABG Oxyhemoglobin ABG Sodium ABG Glucose Sodium 130 L Potassium 3.5 L Chloride 86.4 L Carbon Dioxide BUN 33 H Creatinine 2.3 H Glucose 156 H Lactic Acid Calcium Magnesium Ferritin Total Bilirubin 3.40 H Direct Bilirubin 1.7 H AST 385 H ALT 134 H Lactate Dehydrogenase C-Reactive Protein Total Protein Albumin 3.0 L Arterial Blood Glucose Arterial Blood Ionized Calcium Urine WBC (Auto) Coronavirus (PCR) SARS-CoV-2 IgG Ab 05/09/20 05/09/20 05/09/20 12:59 12:59 12:59 WBC MCV MCH MCHC RDW Lymph % (Auto) Lymph # (Auto) Seg Neutrophils % Seg Neuts % (Manual) Lymphocytes % (Manual) Seg Neutrophils # Seg Neutrophils # Man D-Dimer 3242.51 H POC ABG pO2 ABG Oxyhemoglobin ABG Sodium ABG Glucose Sodium Potassium Chloride Carbon Dioxide BUN Creatinine Glucose 158 H Lactic Acid 3.50 H* Calcium Magnesium Ferritin Total Bilirubin Direct Bilirubin AST ALT Lactate Dehydrogenase 2166 H C-Reactive Protein 39.00 H Total Protein Albumin Arterial Blood Glucose Arterial Blood Ionized Calcium Urine WBC (Auto) Coronavirus (PCR) SARS-CoV-2 IgG Ab 05/09/20 05/09/20 05/09/20 12:59 14:20 14:20 WBC MCV MCH MCHC RDW Lymph % (Auto) Lymph # (Auto) Seg Neutrophils % Seg Neuts % (Manual) Lymphocytes % (Manual) Seg Neutrophils # Seg Neutrophils # Man D-Dimer 2861.78 H POC ABG pO2 ABG Oxyhemoglobin ABG Sodium ABG Glucose Sodium Potassium Chloride Carbon Dioxide BUN Creatinine Glucose Lactic Acid 2.20 H* Calcium Magnesium Ferritin 81404.0 H Total Bilirubin Direct Bilirubin AST ALT Lactate Dehydrogenase C-Reactive Protein Total Protein Albumin Arterial Blood Glucose Arterial Blood Ionized Calcium Urine WBC (Auto) Coronavirus (PCR) SARS-CoV-2 IgG Ab 05/09/20 05/09/20 05/09/20 14:20 14:20 15:56 WBC MCV MCH MCHC RDW Lymph % (Auto) Lymph # (Auto) Seg Neutrophils % Seg Neuts % (Manual) Lymphocytes % (Manual) Seg Neutrophils # Seg Neutrophils # Man D-Dimer POC ABG pO2 57.3 L ABG Oxyhemoglobin 86.3 L ABG Sodium 129.9 L ABG Glucose 146 H Sodium Potassium Chloride Carbon Dioxide BUN Creatinine Glucose 143 H Lactic Acid Calcium Magnesium Ferritin 21758.0 H Total Bilirubin Direct Bilirubin AST ALT Lactate Dehydrogenase 1953 H C-Reactive Protein 33.50 H Total Protein Albumin Arterial Blood Glucose 146 H Arterial Blood Ionized Calcium 3.9 L Urine WBC (Auto) Coronavirus (PCR) SARS-CoV-2 IgG Ab 05/10/20 05/10/20 05/10/20 10:32 10:32 18:50 WBC 15.4 H MCV 97 H MCH 33 H MCHC RDW 13.1 L Lymph % (Auto) Lymph # (Auto) Seg Neutrophils % Seg Neuts % (Manual) 89.0 H Lymphocytes % (Manual) 8.0 L Seg Neutrophils # Seg Neutrophils # Man 13.7 H D-Dimer POC ABG pO2 ABG Oxyhemoglobin ABG Sodium ABG Glucose Sodium 136 L Potassium Chloride 97.4 L Carbon Dioxide BUN 37 H Creatinine 1.7 H Glucose 209 H Lactic Acid Calcium Magnesium Ferritin > 2000.0 H Total Bilirubin Direct Bilirubin AST ALT Lactate Dehydrogenase C-Reactive Protein Total Protein Albumin Arterial Blood Glucose Arterial Blood Ionized Calcium Urine WBC (Auto) Coronavirus (PCR) SARS-CoV-2 IgG Ab 05/10/20 05/10/20 05/10/20 18:50 19:00 Unknown WBC MCV MCH MCHC RDW Lymph % (Auto) Lymph # (Auto) Seg Neutrophils % Seg Neuts % (Manual) Lymphocytes % (Manual) Seg Neutrophils # Seg Neutrophils # Man D-Dimer > 73718 H POC ABG pO2 ABG Oxyhemoglobin ABG Sodium ABG Glucose Sodium Potassium Chloride Carbon Dioxide BUN Creatinine Glucose Lactic Acid Calcium Magnesium Ferritin Total Bilirubin Direct Bilirubin AST ALT Lactate Dehydrogenase 1879 H C-Reactive Protein 24.80 H Total Protein Albumin Arterial Blood Glucose Arterial Blood Ionized Calcium Urine WBC (Auto) 11.0 H Coronavirus (PCR) SARS-CoV-2 IgG Ab 05/10/20 05/11/20 05/11/20 Unknown 07:30 07:30 WBC MCV MCH MCHC RDW Lymph % (Auto) Lymph # (Auto) Seg Neutrophils % Seg Neuts % (Manual) Lymphocytes % (Manual) Seg Neutrophils # Seg Neutrophils # Man D-Dimer > 2000 H POC ABG pO2 ABG Oxyhemoglobin ABG Sodium ABG Glucose Sodium Potassium Chloride 96.3 L Carbon Dioxide BUN 36 H Creatinine Glucose 161 H Lactic Acid Calcium 8.3 L Magnesium Ferritin Total Bilirubin 1.50 H Direct Bilirubin 0.6 H AST 178 H ALT 111 H Lactate Dehydrogenase C-Reactive Protein Total Protein Albumin 3.0 L Arterial Blood Glucose Arterial Blood Ionized Calcium Urine WBC (Auto) Coronavirus (PCR) Positive A SARS-CoV-2 IgG Ab 05/11/20 05/11/20 05/11/20 07:30 07:30 07:30 WBC MCV MCH MCHC RDW Lymph % (Auto) Lymph # (Auto) Seg Neutrophils % Seg Neuts % (Manual) Lymphocytes % (Manual) Seg Neutrophils # Seg Neutrophils # Man D-Dimer POC ABG pO2 ABG Oxyhemoglobin ABG Sodium ABG Glucose Sodium Potassium Chloride Carbon Dioxide BUN Creatinine Glucose Lactic Acid Calcium Magnesium Ferritin 73347.0 H Total Bilirubin Direct Bilirubin AST ALT Lactate Dehydrogenase 1523 H C-Reactive Protein 12.90 H Total Protein Albumin Arterial Blood Glucose Arterial Blood Ionized Calcium Urine WBC (Auto) Coronavirus (PCR) SARS-CoV-2 IgG Ab Reactive A 05/13/20 05/13/20 05/15/20 05:20 05:20 08:15 WBC MCV MCH MCHC RDW Lymph % (Auto) Lymph # (Auto) Seg Neutrophils % Seg Neuts % (Manual) Lymphocytes % (Manual) Seg Neutrophils # Seg Neutrophils # Man D-Dimer > 73887 H 5318.28 H POC ABG pO2 ABG Oxyhemoglobin ABG Sodium ABG Glucose Sodium Potassium Chloride Carbon Dioxide 32 H BUN 30 H Creatinine Glucose 156 H Lactic Acid Calcium Magnesium 2.60 H Ferritin Total Bilirubin 1.40 H Direct Bilirubin AST 121 H ALT 119 H Lactate Dehydrogenase 957 H C-Reactive Protein 4.00 H Total Protein Albumin 3.0 L Arterial Blood Glucose Arterial Blood Ionized Calcium Urine WBC (Auto) Coronavirus (PCR) SARS-CoV-2 IgG Ab 05/15/20 05/15/20 05/15/20 08:15 08:15 08:15 WBC 12.4 H MCV 98 H MCH 33 H MCHC RDW Lymph % (Auto) 9.7 L Lymph # (Auto) Seg Neutrophils % 86.8 H Seg Neuts % (Manual) Lymphocytes % (Manual) Seg Neutrophils # 10.8 H Seg Neutrophils # Man D-Dimer POC ABG pO2 ABG Oxyhemoglobin ABG Sodium ABG Glucose Sodium Potassium Chloride 94.8 L Carbon Dioxide 32 H BUN 22 H Creatinine Glucose 115 H Lactic Acid Calcium 8.3 L Magnesium Ferritin 2494.0 H Total Bilirubin Direct Bilirubin AST 73 H ALT 121 H Lactate Dehydrogenase 835 H C-Reactive Protein 3.40 H Total Protein 6.1 L Albumin 3.0 L Arterial Blood Glucose Arterial Blood Ionized Calcium Urine WBC (Auto) Coronavirus (PCR) SARS-CoV-2 IgG Ab 05/17/20 05/17/20 05/17/20 05:50 05:50 05:50 WBC MCV MCH MCHC RDW Lymph % (Auto) Lymph # (Auto) Seg Neutrophils % Seg Neuts % (Manual) Lymphocytes % (Manual) Seg Neutrophils # Seg Neutrophils # Man D-Dimer 2911.42 H POC ABG pO2 ABG Oxyhemoglobin ABG Sodium ABG Glucose Sodium 136 L Potassium Chloride 96.0 L Carbon Dioxide 34 H BUN 22 H Creatinine Glucose 140 H Lactic Acid Calcium Magnesium Ferritin 2082.0 H Total Bilirubin Direct Bilirubin AST ALT 75 H Lactate Dehydrogenase 601 H C-Reactive Protein 2.70 H Total Protein Albumin 2.9 L Arterial Blood Glucose Arterial Blood Ionized Calcium Urine WBC (Auto) Coronavirus (PCR) SARS-CoV-2 IgG Ab 05/17/20 05:50 WBC MCV 98 H MCH 33 H MCHC RDW Lymph % (Auto) 8.0 L Lymph # (Auto) 0.8 L Seg Neutrophils % 89.3 H Seg Neuts % (Manual) Lymphocytes % (Manual) Seg Neutrophils # 8.8 H Seg Neutrophils # Man D-Dimer POC ABG pO2 ABG Oxyhemoglobin ABG Sodium ABG Glucose Sodium Potassium Chloride Carbon Dioxide BUN Creatinine Glucose Lactic Acid Calcium Magnesium Ferritin Total Bilirubin Direct Bilirubin AST ALT Lactate Dehydrogenase C-Reactive Protein Total Protein Albumin Arterial Blood Glucose Arterial Blood Ionized Calcium Urine WBC (Auto) Coronavirus (PCR) SARS-CoV-2 IgG Ab Allied health notes reviewed: nursing
[2020-05-18] MEDS: methylPREDNISolone Sod Succinate 40 MG/1 ML INJ IV SCH ×3 (09:40→23:29)
[2020-05-18] MEDS: ENOXAPARIN 120 MG/0.8 ML INJ SUB-Q SCH ×2 (09:40→21:52)
[2020-05-18] MEDS: FOLIC ACID 1 MG TAB PO SCH (09:40)
--- NOTE | 2020-05-18 12:49 | Progress Note ---
Assessment and Plan Assessment and plan: Patient remains hypoxemic, requiring high flow oxygen and BiPAP Patient is in mild distress, secondary to severe COVID-19 pneumonia And severe hypoxemia, critically ill with poor prognosis. Elevated D-dimers; on full dose anticoagulation However ID requested to get CTA chest, patient is unstable to go for CT As he is requiring high flow oxygen. -- Acute hypoxemic respiratory failure; Requiring continuous very high flow oxygen Patient is on 100% nonrebreather continuous Patient has severe COVID-19 bilateral pneumonia Very high inflammatory markers Critically ill with poor prognosis Close monitoring in IMCU/ICU If no improvement intubate --Elevated D-dimers; check CTA to rule out PE Lower extremity venous Doppler to rule out DVT Patient is already on full dose anticoagulation per COVID-19 protocol -- Novel coronavirus infection with Bilateral pneumonia Coronavirus protocol: IV steroid therapy, IV remdesivir, isolation precautions, contact precautions, prone positioning while in bed, pulmonary toilet. consulted ID --Severe sepsis, due to COVID 19 PNA cont to treat for COVID -- Acute kidney injury (SEN) , likely vasomotor nephropathy Resolved, IV fluids, avoid nephrotoxins -- Alcohol dependence; no episodes of withdrawal symptoms Thiamine, folic acid, multivitamin, CIWA protocol. -- Elevated liver function tests Suspected secondary to alcoholic liver disease. Supportive care, alcohol cessation, patient counseled. -- DVT prophylaxis prophylactic AC with lovenox for elevated D-dimer We will closely monitor patient and adjust management as needed Plan of care reviewed with the patient and his nurse Patient has severe Covid pneumonia, severe hypoxia Critically ill very poor prognosis Full CODE STATUS The high probability of a clinically significant, sudden or life threatening deterioration of the [Covid pneumonia, ID, respiratory, liver] system(s) required my full and direct attention, intervention and personal management. The aggregate critical care time was [32] minutes. This time is in addition to time spent performing reported procedures but includes the f ollowing: [x] Data Review and interpretation [x] Patient assessment and monitoring of vital signs [x] Documentation [x] Medication orders and management 05/17/2020; patient with severe COVID-19 pneumonia, in isolation room Patient is on high flow oxygen, and BiPAP 05/18/20; patient feels slightly better still hypoxic, requiring continuous high flow oxygen and BiPAP Respiratory team trying to wean History Interval history: I have seen and examined the patient at the bedside in ICU this morning Isolation precautions, PPE protocols strictly observed Patient feels slightly better wants to go home However patient is requiring BiPAP, high flow oxygen continuously Hypoxic, not in acute distress Vital signs reviewed Hospitalist Physical - Constitutional Vitals: Temp Pulse Resp BP Pulse Ox 98.1 F 118 H 23 126/78 83 L 05/18/20 12:00 05/18/20 11:01 05/18/20 11:01 05/18/20 11:01 05/18/20 11:01 General appearance: Present: mild distress, well-nourished, obese (Morbidly obese), other (Hypoxic on high flow oxygen/on BiPAP today) - EENT Eyes: Present: PERRL, EOM intact - Neck Neck: Present: supple, normal ROM - Respiratory Respiratory effort: normal Respiratory: bilateral: diminished, rhonchi, negative: rales, wheezing - Cardiovascular Rhythm: regular Heart Sounds: Present: S1 & S2 - Extremities Extremities: no ischemia, No edema - Abdominal General gastrointestinal: soft, non-tender, non-distended, normal bowel sounds - Integumentary Integumentary: Present: clear, warm - Psychiatric Psychiatric: appropriate mood/affect, cooperative - Neurologic Neurologic: CNII-XII intact, moves all extremities Results - Labs CBC & Chem 7: 05/17/20 05:50 05/17/20 05:50 Labs: Laboratory Last Values WBC 9.8 K/mm3 (4.5-11.0) 05/17/20 05:50 RBC 3.94 M/mm3 (3.65-5.03) 05/17/20 05:50 Hgb 13.2 gm/dl (11.8-15.2) 05/17/20 05:50 Hct 38.7 % (35.5-45.6) 05/17/20 05:50 MCV 98 fl (84-94) H 05/17/20 05:50 MCH 33 pg (28-32) H 05/17/20 05:50 MCHC 34 % (32-34) 05/17/20 05:50 RDW 13.2 % (13.2-15.2) 05/17/20 05:50 Plt Count 192 K/mm3 (140-440) 05/17/20 05:50 Lymph % (Auto) 8.0 % (13.4-35.0) L 05/17/20 05:50 [place] % (Auto) 2.6 % (0.0-7.3) 05/17/20 05:50 Eos % (Auto) 0.0 % (0.0-4.3) 05/17/20 05:50 Baso % (Auto) 0.1 % (0.0-1.8) 05/17/20 05:50 Lymph # (Auto) 0.8 K/mm3 (1.2-5.4) L 05/17/20 05:50 [place]row # (Auto) 0.3 K/mm3 (0.0-0.8) 05/17/20 05:50 Eos # (Auto) 0.0 K/mm3 (0.0-0.4) 05/17/20 05:50 Baso # (Auto) 0.0 K/mm3 (0.0-0.1) 05/17/20 05:50 Add Manual Diff Complete 05/10/20 10:32 Total Counted 100 05/10/20 10:32 Seg Neutrophils % 89.3 % (40.0-70.0) H 05/17/20 05:50 Seg Neuts % (Manual) 89.0 % (40.0-70.0) H 05/10/20 10:32 Band Neutrophils % 1.0 % 05/10/20 10:32 Lymphocytes % (Manual) 8.0 % (13.4-35.0) L 05/10/20 10:32 Reactive Lymphs % (Man) 0 % 05/10/20 10:32 Monocytes % (Manual) 2.0 % (0.0-7.3) 05/10/20 10:32 Eosinophils % (Manual) 0 % (0.0-4.3) 05/10/20 10:32 Basophils % (Manual) 0 % (0.0-1.8) 05/10/20 10:32 Metamyelocytes % 0 % 05/10/20 10:32 Myelocytes % 0 % 05/10/20 10:32 Promyelocytes % 0 % 05/10/20 10:32 Blast Cells % 0 % 05/10/20 10:32 Nucleated RBC % Not Reportable 05/10/20 10:32 Seg Neutrophils # 8.8 K/mm3 (1.8-7.7) H 05/17/20 05:50 Seg Neutrophils # Man 13.7 K/mm3 (1.8-7.7) H 05/10/20 10:32 Band Neutrophils # 0.2 K/mm3 05/10/20 10:32 Lymphocytes # (Manual) 1.2 K/mm3 (1.2-5.4) 05/10/20 10:32 Abs React Lymphs (Man) 0.0 K/mm3 05/10/20 10:32 Monocytes # (Manual) 0.3 K/mm3 (0.0-0.8) 05/10/20 10:32 Eosinophils # (Manual) 0.0 K/mm3 (0.0-0.4) 05/10/20 10:32 Basophils # (Manual) 0.0 K/mm3 (0.0-0.1) 05/10/20 10:32 Metamyelocytes # 0.0 K/mm3 05/10/20 10:32 Myelocytes # 0.0 K/mm3 05/10/20 10:32 Promyelocytes # 0.0 K/mm3 05/10/20 10:32 Blast Cells # 0.0 K/mm3 05/10/20 10:32 WBC Morphology Not Reportable 05/10/20 10:32 Hypersegmented Neuts Not Reportable 05/10/20 10:32 Hyposegmented Neuts Not Reportable 05/10/20 10:32 Hypogranular Neuts Not Reportable 05/10/20 10:32 Smudge Cells Not Reportable 05/10/20 10:32 Toxic Granulation Not Reportable 05/10/20 10:32 Toxic Vacuolation Not Reportable 05/10/20 10:32 Dohle Bodies Not Reportable 05/10/20 10:32 Pelger-Huet Anomaly Not Reportable 05/10/20 10:32 Jason Rods Not Reportable 05/10/20 10:32 Platelet Estimate Consistent w auto 05/10/20 10:32 Clumped Platelets Rare 05/10/20 10:32 Plt Clumps, EDTA Not Reportable 05/10/20 10:32 Large Platelets Not Reportable 05/10/20 10:32 Giant Platelets Not Reportable 05/10/20 10:32 Platelet Satelliting Not Reportable 05/10/20 10:32 Plt Morphology Comment Not Reportable 05/10/20 10:32 RBC Morphology Normal 05/10/20 10:32 Dimorphic RBCs Not Reportable 05/10/20 10:32 Polychromasia Not Reportable 05/10/20 10:32 Hypochromasia Not Reportable 05/10/20 10:32 Poikilocytosis Not Reportable 05/10/20 10:32 Anisocytosis Not Reportable 05/10/20 10:32 Microcytosis Not Reportable 05/10/20 10:32 Macrocytosis Not Reportable 05/10/20 10:32 Spherocytes Not Reportable 05/10/20 10:32 Pappenheimer Bodies Not Reportable 05/10/20 10:32 Sickle Cells Not Reportable 05/10/20 10:32 Target Cells Not Reportable 05/10/20 10:32 Tear Drop Cells Not Reportable 05/10/20 10:32 Ovalocytes Not Reportable 05/10/20 10:32 Helmet Cells Not Reportable 05/10/20 10:32 [place] Bodies Not Reportable 05/10/20 10:32 [place] Rings Not Reportable 05/10/20 10:32 [place] Cells Not Reportable 05/10/20 10:32 Bite Cells Not Reportable 05/10/20 10:32 Crenated Cell Not Reportable 05/10/20 10:32 Elliptocytes Not Reportable 05/10/20 10:32 Acanthocytes (Spur) Not Reportable 05/10/20 10:32 Rouleaux Not Reportable 05/10/20 10:32 Hemoglobin C Crystals Not Reportable 05/10/20 10:32 Schistocytes Not Reportable 05/10/20 10:32 Malaria parasites Not Reportable 05/10/20 10:32 Josue Bodies Not Reportable 05/10/20 10:32 Hem Pathologist Commnt No 05/10/20 10:32 D-Dimer 2911.42 ng/mlDDU (0-234) H 05/17/20 05:50 ABG pH 7.428 (7.320-7.450) 05/09/20 15:56 POC ABG pCO2 34.0 mmHg (32.0-48.0) 05/09/20 15:56 POC ABG pO2 57.3 mmHg (83-108) L 05/09/20 15:56 POC ABG HCO3 22.0 05/09/20 15:56 POC ABG Base Excess -1.7 05/09/20 15:56 ABG Hemoglobin 13.7 (12.0-17.5) 05/09/20 15:56 ABG Oxyhemoglobin 86.3 (94-98) L 05/09/20 15:56 ABG Methemoglobin 0.3 (0.0-1.5) 05/09/20 15:56 ABG Sodium 129.9 mmol/L (136.0-145.0) L 05/09/20 15:56 ABG Potassium 3.4 mmol/L (3.40-4.50) 05/09/20 15:56 ABG Chloride 100.0 mmol/L (98-107) 05/09/20 15:56 ABG Glucose 146 mg/dL (65-95) H 05/09/20 15:56 Carboxyhemoglobin 1.3 (0.5-1.5) 05/09/20 15:56 FiO2 100 05/09/20 15:56 Sodium 136 mmol/L (137-145) L 05/17/20 05:50 Potassium 4.3 mmol/L (3.6-5.0) 05/17/20 05:50 Chloride 96.0 mmol/L (98-107) L 05/17/20 05:50 Carbon Dioxide 34 mmol/L (22-30) H 05/17/20 05:50 Anion Gap 10 mmol/L 05/17/20 05:50 BUN 22 mg/dL (9-20) H 05/17/20 05:50 Creatinine 0.8 mg/dL (0.8-1.3) 05/17/20 05:50 Estimated GFR > 60 ml/min 05/17/20 05:50 BUN/Creatinine Ratio 28 % 05/17/20 05:50 Glucose 140 mg/dL (75-100) H 05/17/20 05:50 POC Glucose 178 mg/dL (70-105) H 05/18/20 12:22 Lactic Acid 1.80 mmol/L (0.7-2.0) 05/09/20 Unknown Calcium 8.6 mg/dL (8.4-10.2) 05/17/20 05:50 Phosphorus 3.20 mg/dL (2.5-4.5) 05/13/20 05:20 Magnesium 2.60 mg/dL (1.7-2.3) H 05/13/20 05:20 Ferritin 2082.0 ng/mL (30.0-300.0) H 05/17/20 05:50 Total Bilirubin 1.00 mg/dL (0.1-1.2) 05/17/20 05:50 Direct Bilirubin 0.6 mg/dL (0-0.2) H 05/11/20 07:30 Indirect Bilirubin 0.9 mg/dL 05/11/20 07:30 AST 38 units/L (5-40) 05/17/20 05:50 ALT 75 units/L (7-56) H 05/17/20 05:50 Alkaline Phosphatase 82 units/L (35-129) 05/17/20 05:50 Lactate Dehydrogenase 601 units/L (91-180) H 05/17/20 05:50 C-Reactive Protein 2.70 mg/dL (0.00-1.30) H 05/17/20 05:50 Total Protein 6.6 g/dL (6.3-8.2) 05/17/20 05:50 Albumin 2.9 g/dL (3.9-5) L 05/17/20 05:50 Albumin/Globulin Ratio 0.8 % 05/17/20 05:50 Procalcitonin 4.47 ng/mL (<0.15) 05/09/20 12:59 Arterial Blood Glucose 146 mg/dL (65-95) H 05/09/20 15:56 Arterial Blood Ionized Calcium 3.9 mg/dL (4.6-5.3) L 05/09/20 15:56 Urine Color Fauzia (Yellow) 05/10/20 Unknown Urine Turbidity Clear (Clear) 05/10/20 Unknown Urine pH 5.0 (5.0-7.0) 05/10/20 Unknown Ur Specific [place] 1.019 (1.003-1.030) 05/10/20 Unknown Urine Protein 100 mg/dl mg/dL (Negative) 05/10/20 Unknown Urine Glucose (UA) Neg mg/dL (Negative) 05/10/20 Unknown Urine Ketones Neg mg/dL (Negative) 05/10/20 Unknown Urine Blood Lg (Negative) 05/10/20 Unknown Urine Nitrite Neg (Negative) 05/10/20 Unknown Urine Bilirubin Neg (Negative) 05/10/20 Unknown Urine Urobilinogen 2.0 mg/dL (<2.0) 05/10/20 Unknown Ur Leukocyte Esterase Neg (Negative) 05/10/20 Unknown Urine WBC (Auto) 11.0 /HPF (0.0-6.0) H 05/10/20 Unknown Urine RBC (Auto) 2.0 /HPF (0.0-6.0) 05/10/20 Unknown U Epithel Cells (Auto) 1.0 /HPF (0-13.0) 05/10/20 Unknown Urine Bacteria (Auto) 1+ /HPF (Negative) 05/10/20 Unknown Urine Mucus Few /HPF 05/10/20 Unknown Plasma/Serum Alcohol < 0.01 % (0-0.07) 05/09/20 14:20 Coronavirus (PCR) Positive (Negative) A 05/10/20 Unknown SARS-CoV-2 IgG Ab Reactive (NonReactive) A 05/11/20 07:30 Cantor/IV: Voiding Method Bedside Commode IV Catheter Type [Left Peripheral IV Antecubital] Active Medications - Current Medications Current Medications: Generic Name Dose Route Start Last Admin Trade Name Freq PRN Reason Stop Dose Admin Acetaminophen 650 mg 05/09/20 13:37 05/15/20 13:07 Tylenol PO 650 mg Q4H PRN Administration Pain MILD(1-3)/Fever >100.5/KERR Enoxaparin Sodium 110 mg 05/10/20 22:00 05/18/20 09:40 Enoxaparin 1 mg/kg (110 mg) 110 mg SUB-Q Administration Q12HR DESIRE Protocol Folic Acid 1 mg 05/09/20 15:36 05/18/20 09:40 Folvite PO 1 mg QDAY DESIRE Administration Guaifenesin 10 ml 05/16/20 22:38 05/17/20 00:08 Guaifenesin Dm Syrup PO 10 ml Q4H PRN Administration Cough Lorazepam 2 mg 05/09/20 15:40 Ativan IV Q1HR PRN CIWA-Ar 8-15 Methylprednisolone Sodium Succinate 40 mg 05/09/20 16:00 05/18/20 09:40 Solu-Medrol IV 40 mg Q8H DESIRE Administration Ondansetron HCl 4 mg 05/09/20 13:37 Zofran IV Q8H PRN Nausea And Vomiting Sodium Chloride 10 ml 05/09/20 22:00 05/18/20 09:40 Sodium Chloride Flush Syringe 10 Ml IV 10 ml BID DESIRE Administration Sodium Chloride 10 ml 05/09/20 13:37 Sodium Chloride Flush Syringe 10 Ml IV PRN PRN LINE FLUSH Nutrition/Malnutrition Assess - Dietary Evaluation Nutrition/Malnutrition Findings: Nutrition Notes Start: 05/17/20 14:10 Freq: Status: Active Protocol: Document 05/17/20 14:10 LM (Rec: 05/17/20 14:13 LM [id number]) Nutrition Notes Need for Assessment generated from: LOS Initial or Follow up Brief Note Subjective/Other Information Screen for LOS. Unable to reach pt by phone. Per RN notes pt ate 100% of dinner yesterday. Nutrition Intervention Revisit per MD consult or patient Sign Off request:
--- NOTE | 2020-05-18 14:46 | Progress Note ---
Assessment and Plan Cultures: Blood culture 04/28/2020 no growth today SARS CoV2 PCR positive Assessment: 50 years old male with history of alcohol dependence and obesity admitted on 05/09/2020 due to 5-day history of generalized malaise, fatigue, body aches, dyspnea exertion, cough and shortness of breath, tested positive for COVID-19 2 days before admission: #Severe sepsis: Improving; likely due to bilateral pneumonia. #Severe COVID pneumonia: Chest x-ray with bilateral patchy infiltrates. SARS-CoV-2 PCR positive. Inflammatory markers markedly elevated, D-dimer 10,000, ferritin 38,000. Noted elevated procalcitonin likely due to elevated creatinine, however will cover for bacterial component given severe sepsis. Repeat chest x-ray with worsening bilateral lower airspace disease. #Acute hypoxemic respiratory failure: O2 sats dropped to 63% on admission, currently on high flow nasal cannula 100%, 40 L. #Elevated LFTs: from COVID, however no higher than 10 times normal. #SEN: from COVID, already improving. #Elevated D-dimer: Venous ultrasound no DVT. Recommendations: -Close monitoring may require intubation -Obtain chest CTA r/o PE -when stable -Pulmonary on board -SARS CoV-2 IgG positive patient is NOT a candidate for COVID convalescent plasma -Patient started on Solu-Medrol -Completed remdesivir -Monitor inflammatory markers - ferritin, Ddimer, CRP, LDH -Completed ceftriaxone/azithromycin -Continue anticoagulation per System Protocol -continue full dose anticoagulatio n given elevated D-dimer -Prone positioning as possible All laboratory, cultures and imaging were reviewed. High risk mortality. Will follow Arcelia Acosta MD Infectious Diseases Tooling Mechan[employer] [facility] M [phone] O [phone] Subjective Date of service: 05/18/20 Principal diagnosis: Ac hypoxemic resp failure; COVID-19; Severe Sepsis; Shaggy PNA; Alcohol Abuse Interval history: Remains on high flow NC no fever Objective - Exam Narrative Exam: Physical Exam: reviewed ED and hospitalist notes, limited due to conservation of PPE and decrease risk of transmission. General appearance: limited due to conservation of PPE Eyes: limited due to conservation of PPE HENT: Atraumatic; limited due to conservation of PPE Lungs: limited due to conservation of PPE CV: limited due to conservation of PPE Abdomen: limited due to conservation of PPE Extremities: limited due to conservation of PPE Skin: limited due to conservation of PPE Psych: limited due to conservation of PPE Neuro: limited due to conservation of PPE - Constitutional Vitals: Vital Signs Temp Pulse Resp BP Pulse Ox 98.1 F 118 H 23 126/78 83 L 05/18/20 12:00 05/18/20 11:01 05/18/20 11:01 05/18/20 11:01 05/18/20 11:01 Temperature -Last 24 Hours Temperature 98.1 F Temperature 98.3 F Temperature 97.4 F Temperature 98.2 F Temperature 98.5 F - Labs CBC & Chem 7: 05/17/20 05:50 05/17/20 05:50 Labs: Abnormal lab results 05/18/20 Range/Units 12:22 POC Glucose 178 H (70-105) mg/dL
[2020-05-18] MEDS: guaiFENesin DM 200/20 MG ORAL LIQD 10 ML PO PRN (17:40)
--- NOTE | 2020-05-19 09:16 | Progress Note ---
Assessment and Plan Cultures: Blood culture 04/28/2020 no growth today SARS CoV2 PCR positive Assessment: 50 years old male with history of alcohol dependence and obesity admitted on 05/09/2020 due to 5-day history of generalized malaise, fatigue, body aches, dyspnea exertion, cough and shortness of breath, tested positive for COVID-19 2 days before admission: #Severe sepsis: Improving; likely due to bilateral pneumonia. #Severe COVID pneumonia: Chest x-ray with bilateral patchy infiltrates. SARS-CoV-2 PCR positive. Inflammatory markers markedly elevated, D-dimer 10,000, ferritin 38,000. Noted elevated procalcitonin likely due to elevated creatinine, however will cover for bacterial component given severe sepsis. Repeat chest x-ray with worsening bilateral lower airspace disease. #Acute hypoxemic respiratory failure: O2 sats dropped to 63% on admission, currently on high flow nasal cannula 100% #Elevated LFTs: from COVID, however no higher than 10 times normal. #SEN: from COVID, already improving. #Elevated D-dimer: Venous ultrasound no DVT. Recommendations: -Obtain transthoracic echo to evaluate EF -Close monitoring may require intubation -Obtain chest CTA r/o PE -when stable -Pulmonary on board -SARS CoV-2 IgG positive patient is NOT a candidate for COVID convalescent sugey sma -Patient started on Solu-Medrol -Completed remdesivir -Monitor inflammatory markers - ferritin, Ddimer, CRP, LDH -Completed ceftriaxone/azithromycin -Continue anticoagulation per System Protocol -continue full dose anticoagulation given elevated D-dimer -Prone positioning as possible All laboratory, cultures and imaging were reviewed. High risk mortality. Will follow Arcelia Acosta MD Infectious Diseases Verification Engineer [facility] M [phone] O [phone] Subjective Date of service: 05/19/20 Principal diagnosis: Ac hypoxemic resp failure; COVID-19; Severe Sepsis; Shaggy PNA; Alcohol Abuse Interval history: Remains on high flow nasal cannula 100%, no fever, sleepy Objective - Exam Narrative Exam: Physical Exam: reviewed ED and hospitalist notes, limited due to conservation of PPE and decrease risk of transmission. General appearance: limited due to conservation of PPE Eyes: limited due to conservation of PPE HENT: Atraumatic; limited due to conservation of PPE Lungs: limited due to conservation of PPE CV: limited due to conservation of PPE Abdomen: limited due to conservation of PPE Extremities: limited due to conservation of PPE Skin: limited due to conservation of PPE Psych: limited due to conservation of PPE Neuro: limited due to conservation of PPE - Constitutional Vitals: Vital Signs Temp Pulse Resp BP Pulse Ox 98.4 F 102 H 19 124/85 97 05/19/20 08:00 05/19/20 06:00 05/19/20 06:00 05/19/20 06:00 05/19/20 06:00 Temperature -Last 24 Hours Temperature 98.4 F Temperature 98.9 F Temperature 98.8 F Temperature 98.3 F Temperature 98.2 F Temperature 97.9 F Temperature 98.1 F - Labs CBC & Chem 7: 05/17/20 05:50 05/17/20 05:50 Labs: Abnormal lab results 05/18/20 Range/Units 12:22 POC Glucose 178 H (70-105) mg/dL
[2020-05-19] MEDS: methylPREDNISolone Sod Succinate 40 MG/1 ML INJ IV SCH ×2 (09:24→17:34)
[2020-05-19] MEDS: FOLIC ACID 1 MG TAB PO SCH (09:24)
[2020-05-19] MEDS: ENOXAPARIN 120 MG/0.8 ML INJ SUB-Q SCH ×2 (09:24→22:24)
--- NOTE | 2020-05-19 13:39 | Progress Note ---
Assessment and Plan Patient sleeping. Patients O2 requirements still very high. Patient is on non rebreathing mask, FIO2 100% and O2 saturation running 95%.Patient is on BIPAP 14/8, rate 12 , FIO2 80% standby in the room. Patient afebrile and has no leukocytosis. Patients D dimer 2911.42. Ferritin 2088. LDH 601. C reactive protein 2.7. Chest xray 05/17/20 reported Persistent diffuse patchy bilateral airspace disease. Apparent interval worsening Patient finished course of REMDESIVIR, ceftrioxane and zithromax . Patient is on methylprednisone and S/C Lovenox. Recommend to increase methyl prenisone dose 60 mg I/V q 6 hours. Recommend Physical therapy to make him out of bed and sitting up in chair. Also recommend incentive spirometry. I have seen the patient in [facility]. I spent critical care time of 35 minutes , Reviewing the chart,examining patient, Review labs , chest xray , talking to the respiratory therapy and nursing staff and work out plan of treatment in this critically sick patient. - Patient Problems (1) Acute respiratory failure due to COVID-19 Current Visit: Yes Status: Acute Plan to address problem: Non rebreathing mask, FIO2 100%. BIPAP 14/8, rate 12, FIO2 80%. Recommend to increase I/V solumedrol 60 mg I/V q 6 hours. Convert aerosol treatments to metered dose inhalers Continue S/C Lovenox. Patient finished course of REMDESIVIR, Ceftrioxana and zithromax. (2) Bilateral pneumonia Current Visit: Yes Status: Acute Plan to address problem: Patient finished course of ceftrioxane and Zithromax. (3) Acute kidney injury (SEN) with acute tubular necrosis (ATN) Current Visit: Yes Status: Acute Plan to address problem: Management as per nephrology. (4) Alcohol dependence Current Visit: Yes Status: Acute Qualifiers: Substance use status: uncomplicated Qualified Code(s): F10.20 - Alcohol dependence, uncomplicated Plan to address problem: Management as per primary care. (5) Elevated liver function tests Current Visit: Yes Status: Acute Plan to address problem: Liver enzymes elevated either from his alcoholic abuse or from COVID 19 infection. Subjective Date of service: 05/19/20 Principal diagnosis: Ac hypoxemic resp failure; COVID-19; Severe Sepsis; Shaggy PNA; Alcohol Abuse Interval history: Patient sleeping. Patients O2 requirements still very high. Patient is on non rebreathing mask, FIO2 100% and O2 saturation running 95%.Patient is on BIPAP 14/8, rate 12 , FIO2 80% standby in the room. Patient afebrile and has no leukocytosis. Patients D dimer 2911.42. Ferritin 2088. LDH 601. C reactive protein 2.7. Chest xray 05/17/20 reported Persistent diffuse patchy bilateral airspace disease. Apparent interval worsening Patient finished course of REMDESIVIR, ceftrioxane and zithromax . Patient is on methylprednisone and S/C Lovenox. Recommend to increase methyl prenisone dose 60 mg I/V q 6 hours. Recommend Physical therapy to make him out of bed and sitting up in chair. Also recommend incentive spirometry. Objective Vital Signs - 12hr 05/19/20 05/19/20 05/19/20 02:00 03:00 04:00 Temperature 98.9 F Pulse Rate 103 H 105 H 109 H Pulse Rate [ 108 H From Monitor] Respiratory 27 H 26 H 25 H Rate Blood Pressure 120/76 127/70 135/77 O2 Sat by Pulse 94 95 94 Oximetry 05/19/20 05/19/20 05/19/20 05:00 05:15 06:00 Temperature Pulse Rate 101 H 106 H 102 H Pulse Rate [ From Monitor] Respiratory 22 20 19 Rate Blood Pressure 136/82 124/85 O2 Sat by Pulse 98 95 97 Oximetry 05/19/20 05/19/20 05/19/20 07:00 08:00 09:00 Temperature 98.4 F Pulse Rate 101 H 113 H 112 H Pulse Rate [ 102 H From Monitor] Respiratory 21 23 22 Rate Blood Pressure 115/78 122/78 131/84 O2 Sat by Pulse 93 96 94 Oximetry 05/19/20 05/19/20 05/19/20 10:00 10:35 11:00 Temperature Pulse Rate 118 H 88 Pulse Rate [ From Monitor] Respiratory 26 H 28 H Rate Blood Pressure 121/94 131/84 126/76 O2 Sat by Pulse 94 98 93 Oximetry 05/19/20 12:00 Temperature 98.8 F Pulse Rate Pulse Rate [ From Monitor] Respiratory Rate Blood Pressure O2 Sat by Pulse Oximetry Constitutional: no acute distress, asleep Eyes: non-icteric ENT: oropharynx moist, other (mallampati 3) Neck: supple, no JVD Effort: mildly labored Ascultation: Bilateral: diminished breath sounds, rhonchi (scant) Percussion: Bilateral: not dull Cardiovascular: regular rate and rhythm Gastrointestinal: normoactive bowel sounds, soft, non-tender, non-distended (protuberant) Integumentary: normal Extremities: no cyanosis, no edema, pulses normal, no ischemia or petechiae Neurologic: normal mental status, non-focal exam, pupils equal and round, CN II- XII normal, motor strength normal and Psychiatric: mood appropriate, affect normal CBC and BMP: 05/17/20 05:50 05/17/20 05:50 ABG, PT/INR, D-dimer: ABG ABG pH 7.428 (7.320-7.450) 05/09/20 15:56 POC ABG pCO2 34.0 mmHg (32.0-48.0) 05/09/20 15:56 POC ABG pO2 57.3 mmHg (83-108) L 05/09/20 15:56 POC ABG HCO3 22.0 05/09/20 15:56 PT/INR, D-dimer D-Dimer 2911.42 ng/mlDDU (0-234) H 05/17/20 05:50 Abnormal lab findings: Abnormal Labs 05/09/20 05/09/20 05/09/20 12:59 12:59 12:59 WBC 11.8 H MCV 96 H MCH 34 H MCHC 35 H RDW Lymph % (Auto) 6.9 L Lymph # (Auto) 0.8 L Seg Neutrophils % 87.5 H Seg Neuts % (Manual) Lymphocytes % (Manual) Seg Neutrophils # 10.3 H Seg Neutrophils # Man D-Dimer POC ABG pO2 ABG Oxyhemoglobin ABG Sodium ABG Glucose Sodium 130 L Potassium 3.5 L Chloride 86.4 L Carbon Dioxide BUN 33 H Creatinine 2.3 H Glucose 156 H POC Glucose Lactic Acid Calcium Magnesium Ferritin Total Bilirubin 3.40 H Direct Bilirubin 1.7 H AST 385 H ALT 134 H Lactate Dehydrogenase C-Reactive Protein Total Protein Albumin 3.0 L Arterial Blood Glucose Arterial Blood Ionized Calcium Urine WBC (Auto) Coronavirus (PCR) SARS-CoV-2 IgG Ab 05/09/20 05/09/20 05/09/20 12:59 12:59 12:59 WBC MCV MCH MCHC RDW Lymph % (Auto) Lymph # (Auto) Seg Neutrophils % Seg Neuts % (Manual) Lymphocytes % (Manual) Seg Neutrophils # Seg Neutrophils # Man D-Dimer 3242.51 H POC ABG pO2 ABG Oxyhemoglobin ABG Sodium ABG Glucose Sodium Potassium Chloride Carbon Dioxide BUN Creatinine Glucose 158 H POC Glucose Lactic Acid 3.50 H* Calcium Magnesium Ferritin Total Bilirubin Direct Bilirubin AST ALT Lactate Dehydrogenase 2166 H C-Reactive Protein 39.00 H Total Protein Albumin Arterial Blood Glucose Arterial Blood Ionized Calcium Urine WBC (Auto) Coronavirus (PCR) SARS-CoV-2 IgG Ab 05/09/20 05/09/20 05/09/20 12:59 14:20 14:20 WBC MCV MCH MCHC RDW Lymph % (Auto) Lymph # (Auto) Seg Neutrophils % Seg Neuts % (Manual) Lymphocytes % (Manual) Seg Neutrophils # Seg Neutrophils # Man D-Dimer 2861.78 H POC ABG pO2 ABG Oxyhemoglobin ABG Sodium ABG Glucose Sodium Potassium Chloride Carbon Dioxide BUN Creatinine Glucose POC Glucose Lactic Acid 2.20 H* Calcium Magnesium Ferritin 03992.0 H Total Bilirubin Direct Bilirubin AST ALT Lactate Dehydrogenase C-Reactive Protein Total Protein Albumin Arterial Blood Glucose Arterial Blood Ionized Calcium Urine WBC (Auto) Coronavirus (PCR) SARS-CoV-2 IgG Ab 05/09/20 05/09/20 05/09/20 14:20 14:20 15:56 WBC MCV MCH MCHC RDW Lymph % (Auto) Lymph # (Auto) Seg Neutrophils % Seg Neuts % (Manual) Lymphocytes % (Manual) Seg Neutrophils # Seg Neutrophils # Man D-Dimer POC ABG pO2 57.3 L ABG Oxyhemoglobin 86.3 L ABG Sodium 129.9 L ABG Glucose 146 H Sodium Potassium Chloride Carbon Dioxide BUN Creatinine Glucose 143 H POC Glucose Lactic Acid Calcium Magnesium Ferritin 94737.0 H Total Bilirubin Direct Bilirubin AST ALT Lactate Dehydrogenase 1953 H C-Reactive Protein 33.50 H Total Protein Albumin Arterial Blood Glucose 146 H Arterial Blood Ionized Calcium 3.9 L Urine WBC (Auto) Coronavirus (PCR) SARS-CoV-2 IgG Ab 05/10/20 05/10/20 05/10/20 10:32 10:32 18:50 WBC 15.4 H MCV 97 H MCH 33 H MCHC RDW 13.1 L Lymph % (Auto) Lymph # (Auto) Seg Neutrophils % Seg Neuts % (Manual) 89.0 H Lymphocytes % (Manual) 8.0 L Seg Neutrophils # Seg Neutrophils # Man 13.7 H D-Dimer POC ABG pO2 ABG Oxyhemoglobin ABG Sodium ABG Glucose Sodium 136 L Potassium Chloride 97.4 L Carbon Dioxide BUN 37 H Creatinine 1.7 H Glucose 209 H POC Glucose Lactic Acid Calcium Magnesium Ferritin > 2000.0 H Total Bilirubin Direct Bilirubin AST ALT Lactate Dehydrogenase C-Reactive Protein Total Protein Albumin Arterial Blood Glucose Arterial Blood Ionized Calcium Urine WBC (Auto) Coronavirus (PCR) SARS-CoV-2 IgG Ab 05/10/20 05/10/20 05/10/20 18:50 19:00 Unknown WBC MCV MCH MCHC RDW Lymph % (Auto) Lymph # (Auto) Seg Neutrophils % Seg Neuts % (Manual) Lymphocytes % (Manual) Seg Neutrophils # Seg Neutrophils # Man D-Dimer > 23638 H POC ABG pO2 ABG Oxyhemoglobin ABG Sodium ABG Glucose Sodium Potassium Chloride Carbon Dioxide BUN Creatinine Glucose POC Glucose Lactic Acid Calcium Magnesium Ferritin Total Bilirubin Direct Bilirubin AST ALT Lactate Dehydrogenase 1879 H C-Reactive Protein 24.80 H Total Protein Albumin Arterial Blood Glucose Arterial Blood Ionized Calcium Urine WBC (Auto) 11.0 H Coronavirus (PCR) SARS-CoV-2 IgG Ab 05/10/20 05/11/20 05/11/20 Unknown 07:30 07:30 WBC MCV MCH MCHC RDW Lymph % (Auto) Lymph # (Auto) Seg Neutrophils % Seg Neuts % (Manual) Lymphocytes % (Manual) Seg Neutrophils # Seg Neutrophils # Man D-Dimer > 2000 H POC ABG pO2 ABG Oxyhemoglobin ABG Sodium ABG Glucose Sodium Potassium Chloride 96.3 L Carbon Dioxide BUN 36 H Creatinine Glucose 161 H POC Glucose Lactic Acid Calcium 8.3 L Magnesium Ferritin Total Bilirubin 1.50 H Direct Bilirubin 0.6 H AST 178 H ALT 111 H Lactate Dehydrogenase C-Reactive Protein Total Protein Albumin 3.0 L Arterial Blood Glucose Arterial Blood Ionized Calcium Urine WBC (Auto) Coronavirus (PCR) Positive A SARS-CoV-2 IgG Ab 05/11/20 05/11/20 05/11/20 07:30 07:30 07:30 WBC MCV MCH MCHC RDW Lymph % (Auto) Lymph # (Auto) Seg Neutrophils % Seg Neuts % (Manual) Lymphocytes % (Manual) Seg Neutrophils # Seg Neutrophils # Man D-Dimer POC ABG pO2 ABG Oxyhemoglobin ABG Sodium ABG Glucose Sodium Potassium Chloride Carbon Dioxide BUN Creatinine Glucose POC Glucose Lactic Acid Calcium Magnesium Ferritin 40052.0 H Total Bilirubin Direct Bilirubin AST ALT Lactate Dehydrogenase 1523 H C-Reactive Protein 12.90 H Total Protein Albumin Arterial Blood Glucose Arterial Blood Ionized Calcium Urine WBC (Auto) Coronavirus (PCR) SARS-CoV-2 IgG Ab Reactive A 05/13/20 05/13/20 05/15/20 05:20 05:20 08:15 WBC MCV MCH MCHC RDW Lymph % (Auto) Lymph # (Auto) Seg Neutrophils % Seg Neuts % (Manual) Lymphocytes % (Manual) Seg Neutrophils # Seg Neutrophils # Man D-Dimer > 53589 H 5318.28 H POC ABG pO2 ABG Oxyhemoglobin ABG Sodium ABG Glucose Sodium Potassium Chloride Carbon Dioxide 32 H BUN 30 H Creatinine Glucose 156 H POC Glucose Lactic Acid Calcium Magnesium 2.60 H Ferritin Total Bilirubin 1.40 H Direct Bilirubin AST 121 H ALT 119 H Lactate Dehydrogenase 957 H C-Reactive Protein 4.00 H Total Protein Albumin 3.0 L Arterial Blood Glucose Arterial Blood Ionized Calcium Urine WBC (Auto) Coronavirus (PCR) SARS-CoV-2 IgG Ab 05/15/20 05/15/20 05/15/20 08:15 08:15 08:15 WBC 12.4 H MCV 98 H MCH 33 H MCHC RDW Lymph % (Auto) 9.7 L Lymph # (Auto) Seg Neutrophils % 86.8 H Seg Neuts % (Manual) Lymphocytes % (Manual) Seg Neutrophils # 10.8 H Seg Neutrophils # Man D-Dimer POC ABG pO2 ABG Oxyhemoglobin ABG Sodium ABG Glucose Sodium Potassium Chloride 94.8 L Carbon Dioxide 32 H BUN 22 H Creatinine Glucose 115 H POC Glucose Lactic Acid Calcium 8.3 L Magnesium Ferritin 2494.0 H Total Bilirubin Direct Bilirubin AST 73 H ALT 121 H Lactate Dehydrogenase 835 H C-Reactive Protein 3.40 H Total Protein 6.1 L Albumin 3.0 L Arterial Blood Glucose Arterial Blood Ionized Calcium Urine WBC (Auto) Coronavirus (PCR) SARS-CoV-2 IgG Ab 05/17/20 05/17/20 05/17/20 05:50 05:50 05:50 WBC MCV MCH MCHC RDW Lymph % (Auto) Lymph # (Auto) Seg Neutrophils % Seg Neuts % (Manual) Lymphocytes % (Manual) Seg Neutrophils # Seg Neutrophils # Man D-Dimer 2911.42 H POC ABG pO2 ABG Oxyhemoglobin ABG Sodium ABG Glucose Sodium 136 L Potassium Chloride 96.0 L Carbon Dioxide 34 H BUN 22 H Creatinine Glucose 140 H POC Glucose Lactic Acid Calcium Magnesium Ferritin 2082.0 H Total Bilirubin Direct Bilirubin AST ALT 75 H Lactate Dehydrogenase 601 H C-Reactive Protein 2.70 H Total Protein Albumin 2.9 L Arterial Blood Glucose Arterial Blood Ionized Calcium Urine WBC (Auto) Coronavirus (PCR) SARS-CoV-2 IgG Ab 05/17/20 05/18/20 05:50 12:22 WBC MCV 98 H MCH 33 H MCHC RDW Lymph % (Auto) 8.0 L Lymph # (Auto) 0.8 L Seg Neutrophils % 89.3 H Seg Neuts % (Manual) Lymphocytes % (Manual) Seg Neutrophils # 8.8 H Seg Neutrophils # Man D-Dimer POC ABG pO2 ABG Oxyhemoglobin ABG Sodium ABG Glucose Sodium Potassium Chloride Carbon Dioxide BUN Creatinine Glucose POC Glucose 178 H Lactic Acid Calcium Magnesium Ferritin Total Bilirubin Direct Bilirubin AST ALT Lactate Dehydrogenase C-Reactive Protein Total Protein Albumin Arterial Blood Glucose Arterial Blood Ionized Calcium Urine WBC (Auto) Coronavirus (PCR) SARS-CoV-2 IgG Ab Allied health notes reviewed: nursing
--- NOTE | 2020-05-19 18:38 | Progress Note ---
Assessment and Plan Assessment and plan: Patient remains hypoxemic, requiring high flow oxygen and BiPAP Patient is in mild distress, secondary to severe COVID-19 pneumonia And severe hypoxemia, critically ill with poor prognosis. Elevated D-dimers; on full dose anticoagulation However ID requested to get CTA chest, patient is unstable to go for CT As he is requiring high flow oxygen. -- Acute hypoxemic respiratory failure; Requiring continuous very high flow oxygen Patient is on 100% nonrebreather continuous Patient has severe COVID-19 bilateral pneumonia Very high inflammatory markers Critically ill with poor prognosis Close monitoring in IMCU/ICU If no improvement intubate --Elevated D-dimers; check CTA to rule out PE Lower extremity venous Doppler to rule out DVT Patient is already on full dose anticoagulation per COVID-19 protocol -- Novel coronavirus infection with Bilateral pneumonia Coronavirus protocol: IV steroid therapy, IV remdesivir, isolation precautions, contact precautions, prone positioning while in bed, pulmonary toilet. consulted ID --Severe sepsis, due to COVID 19 PNA cont to treat for COVID -- Acute kidney injury (SEN) , likely vasomotor nephropathy Resolved, IV fluids, avoid nephrotoxins -- Alcohol dependence; no episodes of withdrawal symptoms Thiamine, folic acid, multivitamin, CIWA protocol. -- Elevated liver function tests Suspected secondary to alcoholic liver disease. Supportive care, alcohol cessation, patient counseled. -- DVT prophylaxis prophylactic AC with lovenox for elevated D-dimer We will closely monitor patient and adjust management as needed Plan of care reviewed with the patient and his nurse Patient has severe Covid pneumonia, severe hypoxia Critically ill very poor prognosis Full CODE STATUS The high probability of a clinically significant, sudden or life threatening deterioration of the [Covid pneumonia, ID, respiratory, liver] system(s) required my full and direct attention, intervention and personal management. The aggregate critical care time was [32] minutes. This time is in addition to time spent performing reported procedures but includes the f ollowing: [x] Data Review and interpretation [x] Patient assessment and monitoring of vital signs [x] Documentation [x] Medication orders and management 05/17/2020; patient with severe COVID-19 pneumonia, in isolation room Patient is on high flow oxygen, and BiPAP 05/18/20; patient feels slightly better still hypoxic, requiring continuous high flow oxygen and BiPAP Respiratory team trying to wean 05/19/20; patient is severely hypoxemic requiring continuous BiPAP today, complains of generalized weakness Trying to wean off high flow oxygen, patient is in isolation History Interval history: I have seen and examined the patient in the morning at the bedside Patient's chart and medications reviewed Patient feels slightly better still complains of shortness of breath and on BiPAP And high flow oxygen Vital signs noted Hospitalist Physical - Constitutional Vitals: Temp Pulse Resp BP Pulse Ox 98.4 F 111 H 28 H 114/75 94 05/19/20 16:00 05/19/20 17:00 05/19/20 17:00 05/19/20 17:00 05/19/20 17:00 General appearance: Present: mild distress, well-nourished, obese (Morbidly obese), other (Hypoxic on high flow oxygen/on BiPAP today) - EENT Eyes: Present: PERRL, EOM intact - Neck Neck: Present: supple, normal ROM - Respiratory Respiratory effort: normal Respiratory: bilateral: diminished, rhonchi, negative: rales, wheezing - Cardiovascular Rhythm: regular Heart Sounds: Present: S1 & S2 - Extremities Extremities: no ischemia, No edema - Abdominal General gastrointestinal: soft, non-tender, non-distended, normal bowel sounds - Integumentary Integumentary: Present: clear, warm - Psychiatric Psychiatric: appropriate mood/affect, cooperative - Neurologic Neurologic: CNII-XII intact, moves all extremities Results - Labs CBC & Chem 7: 05/17/20 05:50 05/17/20 05:50 Labs: Laboratory Last Values WBC 9.8 K/mm3 (4.5-11.0) 05/17/20 05:50 RBC 3.94 M/mm3 (3.65-5.03) 05/17/20 05:50 Hgb 13.2 gm/dl (11.8-15.2) 05/17/20 05:50 Hct 38.7 % (35.5-45.6) 05/17/20 05:50 MCV 98 fl (84-94) H 05/17/20 05:50 MCH 33 pg (28-32) H 05/17/20 05:50 MCHC 34 % (32-34) 05/17/20 05:50 RDW 13.2 % (13.2-15.2) 05/17/20 05:50 Plt Count 192 K/mm3 (140-440) 05/17/20 05:50 Lymph % (Auto) 8.0 % (13.4-35.0) L 05/17/20 05:50 [place] % (Auto) 2.6 % (0.0-7.3) 05/17/20 05:50 Eos % (Auto) 0.0 % (0.0-4.3) 05/17/20 05:50 Baso % (Auto) 0.1 % (0.0-1.8) 05/17/20 05:50 Lymph # (Auto) 0.8 K/mm3 (1.2-5.4) L 05/17/20 05:50 [place] # (Auto) 0.3 K/mm3 (0.0-0.8) 05/17/20 05:50 Eos # (Auto) 0.0 K/mm3 (0.0-0.4) 05/17/20 05:50 Baso # (Auto) 0.0 K/mm3 (0.0-0.1) 05/17/20 05:50 Add Manual Diff Complete 05/10/20 10:32 Total Counted 100 05/10/20 10:32 Seg Neutrophils % 89.3 % (40.0-70.0) H 05/17/20 05:50 Seg Neuts % (Manual) 89.0 % (40.0-70.0) H 05/10/20 10:32 Band Neutrophils % 1.0 % 05/10/20 10:32 Lymphocytes % (Manual) 8.0 % (13.4-35.0) L 05/10/20 10:32 Reactive Lymphs % (Man) 0 % 05/10/20 10:32 Monocytes % (Manual) 2.0 % (0.0-7.3) 05/10/20 10:32 Eosinophils % (Manual) 0 % (0.0-4.3) 05/10/20 10:32 Basophils % (Manual) 0 % (0.0-1.8) 05/10/20 10:32 Metamyelocytes % 0 % 05/10/20 10:32 Myelocytes % 0 % 05/10/20 10:32 Promyelocytes % 0 % 05/10/20 10:32 Blast Cells % 0 % 05/10/20 10:32 Nucleated RBC % Not Reportable 05/10/20 10:32 Seg Neutrophils # 8.8 K/mm3 (1.8-7.7) H 05/17/20 05:50 Seg Neutrophils # Man 13.7 K/mm3 (1.8-7.7) H 05/10/20 10:32 Band Neutrophils # 0.2 K/mm3 05/10/20 10:32 Lymphocytes # (Manual) 1.2 K/mm3 (1.2-5.4) 05/10/20 10:32 Abs React Lymphs (Man) 0.0 K/mm3 05/10/20 10:32 Monocytes # (Manual) 0.3 K/mm3 (0.0-0.8) 05/10/20 10:32 Eosinophils # (Manual) 0.0 K/mm3 (0.0-0.4) 05/10/20 10:32 Basophils # (Manual) 0.0 K/mm3 (0.0-0.1) 05/10/20 10:32 Metamyelocytes # 0.0 K/mm3 05/10/20 10:32 Myelocytes # 0.0 K/mm3 05/10/20 10:32 Promyelocytes # 0.0 K/mm3 05/10/20 10:32 Blast Cells # 0.0 K/mm3 05/10/20 10:32 WBC Morphology Not Reportable 05/10/20 10:32 Hypersegmented Neuts Not Reportable 05/10/20 10:32 Hyposegmented Neuts Not Reportable 05/10/20 10:32 Hypogranular Neuts Not Reportable 05/10/20 10:32 Smudge Cells Not Reportable 05/10/20 10:32 Toxic Granulation Not Reportable 05/10/20 10:32 Toxic Vacuolation Not Reportable 05/10/20 10:32 Dohle Bodies Not Reportable 05/10/20 10:32 Pelger-Huet Anomaly Not Reportable 05/10/20 10:32 Jason Rods Not Reportable 05/10/20 10:32 Platelet Estimate Consistent w auto 05/10/20 10:32 Clumped Platelets Rare 05/10/20 10:32 Plt Clumps, EDTA Not Reportable 05/10/20 10:32 Large Platelets Not Reportable 05/10/20 10:32 Giant Platelets Not Reportable 05/10/20 10:32 Platelet Satelliting Not Reportable 05/10/20 10:32 Plt Morphology Comment Not Reportable 05/10/20 10:32 RBC Morphology Normal 05/10/20 10:32 Dimorphic RBCs Not Reportable 05/10/20 10:32 Polychromasia Not Reportable 05/10/20 10:32 Hypochromasia Not Reportable 05/10/20 10:32 Poikilocytosis Not Reportable 05/10/20 10:32 Anisocytosis Not Reportable 05/10/20 10:32 Microcytosis Not Reportable 05/10/20 10:32 Macrocytosis Not Reportable 05/10/20 10:32 Spherocytes Not Reportable 05/10/20 10:32 Pappenheimer Bodies Not Reportable 05/10/20 10:32 Sickle Cells Not Reportable 05/10/20 10:32 Target Cells Not Reportable 05/10/20 10:32 Tear Drop Cells Not Reportable 05/10/20 10:32 Ovalocytes Not Reportable 05/10/20 10:32 Helmet Cells Not Reportable 05/10/20 10:32 [place] Bodies Not Reportable 05/10/20 10:32 [place] Rings Not Reportable 05/10/20 10:32 [place] Cells Not Reportable 05/10/20 10:32 Bite Cells Not Reportable 05/10/20 10:32 Crenated Cell Not Reportable 05/10/20 10:32 Elliptocytes Not Reportable 05/10/20 10:32 Acanthocytes (Spur) Not Reportable 05/10/20 10:32 Rouleaux Not Reportable 05/10/20 10:32 Hemoglobin C Crystals Not Reportable 05/10/20 10:32 Schistocytes Not Reportable 05/10/20 10:32 Malaria parasites Not Reportable 05/10/20 10:32 Josue Bodies Not Reportable 05/10/20 10:32 Hem Pathologist Commnt No 05/10/20 10:32 D-Dimer 2911.42 ng/mlDDU (0-234) H 05/17/20 05:50 ABG pH 7.428 (7.320-7.450) 05/09/20 15:56 POC ABG pCO2 34.0 mmHg (32.0-48.0) 05/09/20 15:56 POC ABG pO2 57.3 mmHg (83-108) L 05/09/20 15:56 POC ABG HCO3 22.0 05/09/20 15:56 POC ABG Base Excess -1.7 05/09/20 15:56 ABG Hemoglobin 13.7 (12.0-17.5) 05/09/20 15:56 ABG Oxyhemoglobin 86.3 (94-98) L 05/09/20 15:56 ABG Methemoglobin 0.3 (0.0-1.5) 05/09/20 15:56 ABG Sodium 129.9 mmol/L (136.0-145.0) L 05/09/20 15:56 ABG Potassium 3.4 mmol/L (3.40-4.50) 05/09/20 15:56 ABG Chloride 100.0 mmol/L (98-107) 05/09/20 15:56 ABG Glucose 146 mg/dL (65-95) H 05/09/20 15:56 Carboxyhemoglobin 1.3 (0.5-1.5) 05/09/20 15:56 FiO2 100 05/09/20 15:56 Sodium 136 mmol/L (137-145) L 05/17/20 05:50 Potassium 4.3 mmol/L (3.6-5.0) 05/17/20 05:50 Chloride 96.0 mmol/L (98-107) L 05/17/20 05:50 Carbon Dioxide 34 mmol/L (22-30) H 05/17/20 05:50 Anion Gap 10 mmol/L 05/17/20 05:50 BUN 22 mg/dL (9-20) H 05/17/20 05:50 Creatinine 0.8 mg/dL (0.8-1.3) 05/17/20 05:50 Estimated GFR > 60 ml/min 05/17/20 05:50 BUN/Creatinine Ratio 28 % 05/17/20 05:50 Glucose 140 mg/dL (75-100) H 05/17/20 05:50 POC Glucose 178 mg/dL (70-105) H 05/18/20 12:22 Lactic Acid 1.80 mmol/L (0.7-2.0) 05/09/20 Unknown Calcium 8.6 mg/dL (8.4-10.2) 05/17/20 05:50 Phosphorus 3.20 mg/dL (2.5-4.5) 05/13/20 05:20 Magnesium 2.60 mg/dL (1.7-2.3) H 05/13/20 05:20 Ferritin 2082.0 ng/mL (30.0-300.0) H 05/17/20 05:50 Total Bilirubin 1.00 mg/dL (0.1-1.2) 05/17/20 05:50 Direct Bilirubin 0.6 mg/dL (0-0.2) H 05/11/20 07:30 Indirect Bilirubin 0.9 mg/dL 05/11/20 07:30 AST 38 units/L (5-40) 05/17/20 05:50 ALT 75 units/L (7-56) H 05/17/20 05:50 Alkaline Phosphatase 82 units/L (35-129) 05/17/20 05:50 Lactate Dehydrogenase 601 units/L (91-180) H 05/17/20 05:50 C-Reactive Protein 2.70 mg/dL (0.00-1.30) H 05/17/20 05:50 Total Protein 6.6 g/dL (6.3-8.2) 05/17/20 05:50 Albumin 2.9 g/dL (3.9-5) L 05/17/20 05:50 Albumin/Globulin Ratio 0.8 % 05/17/20 05:50 Procalcitonin 4.47 ng/mL (<0.15) 05/09/20 12:59 Arterial Blood Glucose 146 mg/dL (65-95) H 05/09/20 15:56 Arterial Blood Ionized Calcium 3.9 mg/dL (4.6-5.3) L 05/09/20 15:56 Urine Color Fauzia (Yellow) 05/10/20 Unknown Urine Turbidity Clear (Clear) 05/10/20 Unknown Urine pH 5.0 (5.0-7.0) 05/10/20 Unknown Ur Specific [place] 1.019 (1.003-1.030) 05/10/20 Unknown Urine Protein 100 mg/dl mg/dL (Negative) 05/10/20 Unknown Urine Glucose (UA) Neg mg/dL (Negative) 05/10/20 Unknown Urine Ketones Neg mg/dL (Negative) 05/10/20 Unknown Urine Blood Lg (Negative) 05/10/20 Unknown Urine Nitrite Neg (Negative) 05/10/20 Unknown Urine Bilirubin Neg (Negative) 05/10/20 Unknown Urine Urobilinogen 2.0 mg/dL (<2.0) 05/10/20 Unknown Ur Leukocyte Esterase Neg (Negative) 05/10/20 Unknown Urine WBC (Auto) 11.0 /HPF (0.0-6.0) H 05/10/20 Unknown Urine RBC (Auto) 2.0 /HPF (0.0-6.0) 05/10/20 Unknown U Epithel Cells (Auto) 1.0 /HPF (0-13.0) 05/10/20 Unknown Urine Bacteria (Auto) 1+ /HPF (Negative) 05/10/20 Unknown Urine Mucus Few /HPF 05/10/20 Unknown Plasma/Serum Alcohol < 0.01 % (0-0.07) 05/09/20 14:20 Coronavirus (PCR) Positive (Negative) A 05/10/20 Unknown SARS-CoV-2 IgG Ab Reactive (NonReactive) A 05/11/20 07:30 [place]/IV: Voiding Method Urinal IV Catheter Type [Left Peripheral IV Antecubital] Active Medications - Current Medications Current Medications: Generic Name Dose Route Start Last Admin Trade Name Freq PRN Reason Stop Dose Admin Acetaminophen 650 mg 05/09/20 13:37 05/15/20 13:07 Tylenol PO 650 mg Q4H PRN Administration Pain MILD(1-3)/Fever >100.5/KERR Enoxaparin Sodium 110 mg 05/10/20 22:00 05/19/20 09:24 Enoxaparin 1 mg/kg (110 mg) 110 mg SUB-Q Administration Q12HR DESIRE Protocol Folic Acid 1 mg 05/09/20 15:36 05/19/20 09:24 Folvite PO 1 mg QDAY DESIRE Administration Guaifenesin 10 ml 05/16/20 22:38 05/18/20 17:40 Guaifenesin Dm Syrup PO 10 ml Q4H PRN Administration Cough Lorazepam 2 mg 05/09/20 15:40 Ativan IV Q1HR PRN CIWA-Ar 8-15 Methylprednisolone Sodium Succinate 40 mg 05/09/20 16:00 05/19/20 17:34 Solu-Medrol IV 40 mg Q8H DESIRE Administration Ondansetron HCl 4 mg 05/09/20 13:37 Zofran IV Q8H PRN Nausea And Vomiting Sodium Chloride 10 ml 05/09/20 22:00 05/19/20 10:00 Sodium Chloride Flush Syringe 10 Ml IV 10 ml BID DESIRE Administration Sodium Chloride 10 ml 05/09/20 13:37 Sodium Chloride Flush Syringe 10 Ml IV PRN PRN LINE FLUSH Nutrition/Malnutrition Assess - Dietary Evaluation Nutrition/Malnutrition Findings: Nutrition Notes Start: 05/17/20 14:10 Freq: Status: Active Protocol: Document 05/17/20 14:10 LM (Rec: 05/17/20 14:13 LM [id number]) Nutrition Notes Need for Assessment generated from: LOS Initial or Follow up Brief Note Subjective/Other Information Screen for LOS. Unable to reach pt by phone. Per RN notes pt ate 100% of dinner yesterday. Nutrition Intervention Revisit per MD consult or patient Sign Off request:
[2020-05-19] MEDS: guaiFENesin DM 200/20 MG ORAL LIQD 10 ML PO PRN (22:27)
[2020-05-20] MEDS: methylPREDNISolone Sod Succinate 40 MG/1 ML INJ IV SCH ×4 (00:52→22:29)
--- NOTE | 2020-05-20 07:01 | Progress Note ---
Assessment and Plan Cultures: Blood culture 04/28/2020 no growth today SARS CoV2 PCR positive Assessment: 50 years old male with history of alcohol dependence and obesity admitted on 05/09/2020 due to 5-day history of generalized malaise, fatigue, body aches, dyspnea exertion, cough and shortness of breath, tested positive for COVID-19 2 days before admission: #Severe sepsis: Improving; likely due to bilateral pneumonia. #Severe COVID pneumonia: Chest x-ray with bilateral patchy infiltrates. SARS-CoV-2 PCR positive. Inflammatory markers markedly elevated, D-dimer 10,000, ferritin 38,000. Noted elevated procalcitonin likely due to elevated creatinine, however will cover for bacterial component given severe sepsis. Repeat chest x-ray with worsening bilateral lower airspace disease. #Acute hypoxemic respiratory failure: O2 sats dropped to 63% on admission, currently on high flow nasal cannula 100% #Elevated LFTs: from COVID, however no higher than 10 times normal. #SEN: from COVID, already improving. #Elevated D-dimer: Venous ultrasound no DVT. Recommendations: -Obtain transthoracic echo to evaluate EF -pending -Close monitoring may require intubation -Obtain chest CTA r/o PE -when stable -Pulmonary on board -SARS CoV-2 IgG positive patient is NOT a candidate for COVID convalescent plasma -Patient started on Solu-Medrol -Completed remdesivir -Monitor inflammatory markers - ferritin, Ddimer, CRP, LDH -Completed ceftriaxone/azithromycin -Continue anticoagulation per System Protocol -continue full dose anticoagulation given elevated D-dimer -Prone positioning as possible All laboratory, cultures and imaging were reviewed. High risk mortality. Will follow Arcelia Acosta MD Infectious Diseases [employer] [facility] M [phone] O [phone] Subjective Date of service: 05/20/20 Principal diagnosis: Ac hypoxemic resp failure; COVID-19; Severe Sepsis; Shaggy PNA; Alcohol Abuse Interval history: Remains on high flow nasal cannula, tachycardic on monitor no fever Objective - Exam Narrative Exam: Physical Exam: reviewed ED and hospitalist notes, limited due to conservation of PPE and decrease risk of transmission. General appearance: limited due to conservation of PPE Eyes: limited due to conservation of PPE HENT: Atraumatic; limited due to conservation of PPE Lungs: limited due to conservation of PPE CV: limited due to conservation of PPE Abdomen: limited due to conservation of PPE Extremities: limited due to conservation of PPE Skin: limited due to conservation of PPE Psych: limited due to conservation of PPE Neuro: limited due to conservation of PPE - Constitutional Vitals: Vital Signs Temp Pulse Resp BP Pulse Ox 98.2 F 113 H 25 H 115/73 94 05/20/20 04:00 05/20/20 06:00 05/20/20 04:36 05/20/20 06:00 05/20/20 06:00 Temperature -Last 24 Hours Temperature 98.2 F Temperature 98.7 F Temperature 98.4 F Temperature 98.8 F Temperature 98.4 F - Labs CBC & Chem 7: 05/17/20 05:50 05/17/20 05:50
[2020-05-20 08:59] LABS: C-Reactive Protein 3.1 mg/dL (0.00-1.30)
[2020-05-20] MEDS: ENOXAPARIN 120 MG/0.8 ML INJ SUB-Q SCH ×2 (09:03→22:31)
[2020-05-20] MEDS: FOLIC ACID 1 MG TAB PO SCH (09:03)
[2020-05-20] MEDS: guaiFENesin DM 200/20 MG ORAL LIQD 10 ML PO PRN ×2 (15:30→22:29)
[2020-05-20] MEDS ORDERED: METOPROLOL TARTRATE 25 MG TAB PO SCH (16:00)
--- NOTE | 2020-05-20 16:15 | Progress Note ---
Assessment and Plan Assessment and plan: Patient remains hypoxemic, requiring high flow oxygen and BiPAP Patient is in mild distress, secondary to severe COVID-19 pneumonia And severe hypoxemia, critically ill with poor prognosis. Elevated D-dimers; on full dose anticoagulation However ID requested to get CTA chest, patient is unstable to go for CT As he is requiring high flow oxygen. -- Acute hypoxemic respiratory failure; Requiring continuous very high flow oxygen Patient is on 100% nonrebreather continuous Patient has severe COVID-19 bilateral pneumonia Very high inflammatory markers Critically ill with poor prognosis Close monitoring in IMCU/ICU If no improvement intubate --Elevated D-dimers; check CTA to rule out PE Lower extremity venous Doppler to rule out DVT Patient is already on full dose anticoagulation per COVID-19 protocol -- Novel coronavirus infection with Bilateral pneumonia Coronavirus protocol: IV steroid therapy, IV remdesivir, isolation precautions, contact precautions, prone positioning while in bed, pulmonary toilet. consulted ID --Severe sepsis, due to COVID 19 PNA cont to treat for COVID -- Acute kidney injury (SEN) , likely vasomotor nephropathy Resolved, IV fluids, avoid nephrotoxins -- Alcohol dependence; no episodes of withdrawal symptoms Thiamine, folic acid, multivitamin, CIWA protocol. -- Elevated liver function tests Suspected secondary to alcoholic liver disease. Supportive care, alcohol cessation, patient counseled. -- DVT prophylaxis prophylactic AC with lovenox for elevated D-dimer We will closely monitor patient and adjust management as needed Plan of care reviewed with the patient and his nurse Patient has severe Covid pneumonia, severe hypoxia Critically ill very poor prognosis Full CODE STATUS The high probability of a clinically significant, sudden or life threatening deterioration of the [Covid pneumonia, ID, respiratory, liver] system(s) required my full and direct attention, intervention and personal management. The aggregate critical care time was [32] minutes. This time is in addition to time spent performing reported procedures but includes the f ollowing: [x] Data Review and interpretation [x] Patient assessment and monitoring of vital signs [x] Documentation [x] Medication orders and management 05/17/2020; patient with severe COVID-19 pneumonia, in isolation room Patient is on high flow oxygen, and BiPAP 05/18/20; patient feels slightly better still hypoxic, requiring continuous high flow oxygen and BiPAP Respiratory team trying to wean 05/19/20; patient is severely hypoxemic requiring continuous BiPAP today, complains of generalized weakness Trying to wean off high flow oxygen, patient is in isolation 05/20/2020; patient remains on high flow oxygen/BiPAP/100% nonrebreather. Still is hypoxemic Has sinus tachycardia patient in mild distress Wean off high flow oxygen as tolerated, pulmonary critical following History Interval history: I have seen and examined the patient at the bedside Patient's chart and medications reviewed Patient remains hypoxemic, requiring high flow oxygen/and BiPAP/100% nonrebreather In mild distress, sinus tachycardia Vital signs noted Hospitalist Physical - Constitutional Vitals: Temp Pulse Resp BP Pulse Ox 98.0 F 123 H 20 115/79 91 05/20/20 12:00 05/20/20 15:00 05/20/20 15:00 05/20/20 15:00 05/20/20 15:00 General appearance: Present: mild distress, well-nourished, obese (Morbidly obese), other (Hypoxic on high flow oxygen/on BiPAP today) - EENT Eyes: Present: PERRL, EOM intact - Neck Neck: Present: supple, normal ROM - Respiratory Respiratory effort: normal Respiratory: bilateral: diminished, rhonchi, negative: rales, wheezing - Cardiovascular Rhythm: regular Heart Sounds: Present: S1 & S2 (Tachycardia) - Extremities Extremities: no ischemia, No edema - Abdominal General gastrointestinal: soft, non-tender, non-distended, normal bowel sounds - Integumentary Integumentary: Present: clear, warm - Psychiatric Psychiatric: appropriate mood/affect, cooperative - Neurologic Neurologic: moves all extremities Results - Labs CBC & Chem 7: 05/17/20 05:50 05/17/20 05:50 Labs: Laboratory Last Values WBC 9.8 K/mm3 (4.5-11.0) 05/17/20 05:50 RBC 3.94 M/mm3 (3.65-5.03) 05/17/20 05:50 Hgb 13.2 gm/dl (11.8-15.2) 05/17/20 05:50 Hct 38.7 % (35.5-45.6) 05/17/20 05:50 MCV 98 fl (84-94) H 05/17/20 05:50 MCH 33 pg (28-32) H 05/17/20 05:50 MCHC 34 % (32-34) 05/17/20 05:50 RDW 13.2 % (13.2-15.2) 05/17/20 05:50 Plt Count 192 K/mm3 (140-440) 05/17/20 05:50 Lymph % (Auto) 8.0 % (13.4-35.0) L 05/17/20 05:50 [place] % (Auto) 2.6 % (0.0-7.3) 05/17/20 05:50 Eos % (Auto) 0.0 % (0.0-4.3) 05/17/20 05:50 Baso % (Auto) 0.1 % (0.0-1.8) 05/17/20 05:50 Lymph # (Auto) 0.8 K/mm3 (1.2-5.4) L 05/17/20 05:50 [place] # (Auto) 0.3 K/mm3 (0.0-0.8) 05/17/20 05:50 Eos # (Auto) 0.0 K/mm3 (0.0-0.4) 05/17/20 05:50 Baso # (Auto) 0.0 K/mm3 (0.0-0.1) 05/17/20 05:50 Add Manual Diff Complete 05/10/20 10:32 Total Counted 100 05/10/20 10:32 Seg Neutrophils % 89.3 % (40.0-70.0) H 05/17/20 05:50 Seg Neuts % (Manual) 89.0 % (40.0-70.0) H 05/10/20 10:32 Band Neutrophils % 1.0 % 05/10/20 10:32 Lymphocytes % (Manual) 8.0 % (13.4-35.0) L 05/10/20 10:32 Reactive Lymphs % (Man) 0 % 05/10/20 10:32 Monocytes % (Manual) 2.0 % (0.0-7.3) 05/10/20 10:32 Eosinophils % (Manual) 0 % (0.0-4.3) 05/10/20 10:32 Basophils % (Manual) 0 % (0.0-1.8) 05/10/20 10:32 Metamyelocytes % 0 % 05/10/20 10:32 Myelocytes % 0 % 05/10/20 10:32 Promyelocytes % 0 % 05/10/20 10:32 Blast Cells % 0 % 05/10/20 10:32 Nucleated RBC % Not Reportable 05/10/20 10:32 Seg Neutrophils # 8.8 K/mm3 (1.8-7.7) H 05/17/20 05:50 Seg Neutrophils # Man 13.7 K/mm3 (1.8-7.7) H 05/10/20 10:32 Band Neutrophils # 0.2 K/mm3 05/10/20 10:32 Lymphocytes # (Manual) 1.2 K/mm3 (1.2-5.4) 05/10/20 10:32 Abs React Lymphs (Man) 0.0 K/mm3 05/10/20 10:32 Monocytes # (Manual) 0.3 K/mm3 (0.0-0.8) 05/10/20 10:32 Eosinophils # (Manual) 0.0 K/mm3 (0.0-0.4) 05/10/20 10:32 Basophils # (Manual) 0.0 K/mm3 (0.0-0.1) 05/10/20 10:32 Metamyelocytes # 0.0 K/mm3 05/10/20 10:32 Myelocytes # 0.0 K/mm3 05/10/20 10:32 Promyelocytes # 0.0 K/mm3 05/10/20 10:32 Blast Cells # 0.0 K/mm3 05/10/20 10:32 WBC Morphology Not Reportable 05/10/20 10:32 Hypersegmented Neuts Not Reportable 05/10/20 10:32 Hyposegmented Neuts Not Reportable 05/10/20 10:32 Hypogranular Neuts Not Reportable 05/10/20 10:32 Smudge Cells Not Reportable 05/10/20 10:32 Toxic Granulation Not Reportable 05/10/20 10:32 Toxic Vacuolation Not Reportable 05/10/20 10:32 Dohle Bodies Not Reportable 05/10/20 10:32 Pelger-Huet Anomaly Not Reportable 05/10/20 10:32 Jason Rods Not Reportable 05/10/20 10:32 Platelet Estimate Consistent w auto 05/10/20 10:32 Clumped Platelets Rare 05/10/20 10:32 Plt Clumps, EDTA Not Reportable 05/10/20 10:32 Large Platelets Not Reportable 05/10/20 10:32 Giant Platelets Not Reportable 05/10/20 10:32 Platelet Satelliting Not Reportable 05/10/20 10:32 Plt Morphology Comment Not Reportable 05/10/20 10:32 RBC Morphology Normal 05/10/20 10:32 Dimorphic RBCs Not Reportable 05/10/20 10:32 Polychromasia Not Reportable 05/10/20 10:32 Hypochromasia Not Reportable 05/10/20 10:32 Poikilocytosis Not Reportable 05/10/20 10:32 Anisocytosis Not Reportable 05/10/20 10:32 Microcytosis Not Reportable 05/10/20 10:32 Macrocytosis Not Reportable 05/10/20 10:32 Spherocytes Not Reportable 05/10/20 10:32 Pappenheimer Bodies Not Reportable 05/10/20 10:32 Sickle Cells Not Reportable 05/10/20 10:32 Target Cells Not Reportable 05/10/20 10:32 Tear Drop Cells Not Reportable 05/10/20 10:32 Ovalocytes Not Reportable 05/10/20 10:32 Helmet Cells Not Reportable 05/10/20 10:32 Sinclair-Pomeroy Bodies Not Reportable 05/10/20 10:32 Laurens Rings Not Reportable 05/10/20 10:32 Oriska Cells Not Reportable 05/10/20 10:32 Bite Cells Not Reportable 05/10/20 10:32 Crenated Cell Not Reportable 05/10/20 10:32 Elliptocytes Not Reportable 05/10/20 10:32 Acanthocytes (Spur) Not Reportable 05/10/20 10:32 Rouleaux Not Reportable 05/10/20 10:32 Hemoglobin C Crystals Not Reportable 05/10/20 10:32 Schistocytes Not Reportable 05/10/20 10:32 Malaria parasites Not Reportable 05/10/20 10:32 Josue Bodies Not Reportable 05/10/20 10:32 Hem Pathologist Commnt No 05/10/20 10:32 D-Dimer 1887.82 ng/mlDDU (0-234) H 05/20/20 08:16 ABG pH 7.428 (7.320-7.450) 05/09/20 15:56 POC ABG pCO2 34.0 mmHg (32.0-48.0) 05/09/20 15:56 POC ABG pO2 57.3 mmHg (83-108) L 05/09/20 15:56 POC ABG HCO3 22.0 05/09/20 15:56 POC ABG Base Excess -1.7 05/09/20 15:56 ABG Hemoglobin 13.7 (12.0-17.5) 05/09/20 15:56 ABG Oxyhemoglobin 86.3 (94-98) L 05/09/20 15:56 ABG Methemoglobin 0.3 (0.0-1.5) 05/09/20 15:56 ABG Sodium 129.9 mmol/L (136.0-145.0) L 05/09/20 15:56 ABG Potassium 3.4 mmol/L (3.40-4.50) 05/09/20 15:56 ABG Chloride 100.0 mmol/L (98-107) 05/09/20 15:56 ABG Glucose 146 mg/dL (65-95) H 05/09/20 15:56 Carboxyhemoglobin 1.3 (0.5-1.5) 05/09/20 15:56 FiO2 100 05/09/20 15:56 Sodium 136 mmol/L (137-145) L 05/17/20 05:50 Potassium 4.3 mmol/L (3.6-5.0) 05/17/20 05:50 Chloride 96.0 mmol/L (98-107) L 05/17/20 05:50 Carbon Dioxide 34 mmol/L (22-30) H 05/17/20 05:50 Anion Gap 10 mmol/L 05/17/20 05:50 BUN 22 mg/dL (9-20) H 05/17/20 05:50 Creatinine 0.8 mg/dL (0.8-1.3) 05/17/20 05:50 Estimated GFR > 60 ml/min 05/17/20 05:50 BUN/Creatinine Ratio 28 % 05/17/20 05:50 Glucose 140 mg/dL (75-100) H 05/17/20 05:50 POC Glucose 178 mg/dL (70-105) H 05/18/20 12:22 Lactic Acid 1.80 mmol/L (0.7-2.0) 05/09/20 Unknown Calcium 8.6 mg/dL (8.4-10.2) 05/17/20 05:50 Phosphorus 3.20 mg/dL (2.5-4.5) 05/13/20 05:20 Magnesium 2.60 mg/dL (1.7-2.3) H 05/13/20 05:20 Ferritin 1960.0 ng/mL (30.0-300.0) H 05/20/20 08:16 Total Bilirubin 1.00 mg/dL (0.1-1.2) 05/17/20 05:50 Direct Bilirubin 0.6 mg/dL (0-0.2) H 05/11/20 07:30 Indirect Bilirubin 0.9 mg/dL 05/11/20 07:30 AST 38 units/L (5-40) 05/17/20 05:50 ALT 75 units/L (7-56) H 05/17/20 05:50 Alkaline Phosphatase 82 units/L (35-129) 05/17/20 05:50 Lactate Dehydrogenase 705 units/L (91-180) H 05/20/20 08:16 C-Reactive Protein 3.10 mg/dL (0.00-1.30) H 05/20/20 08:16 Total Protein 6.6 g/dL (6.3-8.2) 05/17/20 05:50 Albumin 2.9 g/dL (3.9-5) L 05/17/20 05:50 Albumin/Globulin Ratio 0.8 % 05/17/20 05:50 Procalcitonin 4.47 ng/mL (<0.15) 05/09/20 12:59 Arterial Blood Glucose 146 mg/dL (65-95) H 05/09/20 15:56 Arterial Blood Ionized Calcium 3.9 mg/dL (4.6-5.3) L 05/09/20 15:56 Urine Color Fauzia (Yellow) 05/10/20 Unknown Urine Turbidity Clear (Clear) 05/10/20 Unknown Urine pH 5.0 (5.0-7.0) 05/10/20 Unknown Ur Specific [place] 1.019 (1.003-1.030) 05/10/20 Unknown Urine Protein 100 mg/dl mg/dL (Negative) 05/10/20 Unknown Urine Glucose (UA) Neg mg/dL (Negative) 05/10/20 Unknown Urine Ketones Neg mg/dL (Negative) 05/10/20 Unknown Urine Blood Lg (Negative) 05/10/20 Unknown Urine Nitrite Neg (Negative) 05/10/20 Unknown Urine Bilirubin Neg (Negative) 05/10/20 Unknown Urine Urobilinogen 2.0 mg/dL (<2.0) 05/10/20 Unknown Ur Leukocyte Esterase Neg (Negative) 05/10/20 Unknown Urine WBC (Auto) 11.0 /HPF (0.0-6.0) H 05/10/20 Unknown Urine RBC (Auto) 2.0 /HPF (0.0-6.0) 05/10/20 Unknown U Epithel Cells (Auto) 1.0 /HPF (0-13.0) 05/10/20 Unknown Urine Bacteria (Auto) 1+ /HPF (Negative) 05/10/20 Unknown Urine Mucus Few /HPF 05/10/20 Unknown Plasma/Serum Alcohol < 0.01 % (0-0.07) 05/09/20 14:20 Coronavirus (PCR) Positive (Negative) A 05/10/20 Unknown SARS-CoV-2 IgG Ab Reactive (NonReactive) A 05/11/20 07:30 Cantor/IV: Voiding Method Urinal IV Catheter Type [Left Peripheral IV Antecubital] Active Medications - Current Medications Current Medications: Generic Name Dose Route Start Last Admin Trade Name Freq PRN Reason Stop Dose Admin Acetaminophen 650 mg 05/09/20 13:37 05/15/20 13:07 Tylenol PO 650 mg Q4H PRN Administration Pain MILD(1-3)/Fever >100.5/KERR Enoxaparin Sodium 110 mg 05/10/20 22:00 05/20/20 09:03 Enoxaparin 1 mg/kg (110 mg) 110 mg SUB-Q Administration Q12HR DESIRE Protocol Folic Acid 1 mg 05/09/20 15:36 05/20/20 09:03 Folvite PO 1 mg QDAY DESIRE Administration Guaifenesin 10 ml 05/16/20 22:38 05/20/20 15:30 Guaifenesin Dm Syrup PO 10 ml Q4H PRN Administration Cough Lorazepam 2 mg 05/09/20 15:40 Ativan IV Q1HR PRN CIWA-Ar 8-15 Methylprednisolone Sodium Succinate 40 mg 05/09/20 16:00 05/20/20 15:30 Solu-Medrol IV 40 mg Q8H DESIRE Administration Metoprolol Tartrate 12.5 mg 05/20/20 16:00 Metoprolol PO BID DESIRE Ondansetron HCl 4 mg 05/09/20 13:37 Zofran IV Q8H PRN Nausea And Vomiting Sodium Chloride 10 ml 05/09/20 22:00 05/20/20 09:04 Sodium Chloride Flush Syringe 10 Ml IV 10 ml BID DESIRE Administration Sodium Chloride 10 ml 05/09/20 13:37 Sodium Chloride Flush Syringe 10 Ml IV PRN PRN LINE FLUSH Nutrition/Malnutrition Assess - Dietary Evaluation Nutrition/Malnutrition Findings: Nutrition Notes Start: 05/17/20 14:10 Freq: Status: Active Protocol: Document 05/17/20 14:10 LM (Rec: 05/17/20 14:13 LM [id number]) Nutrition Notes Need for Assessment generated from: LOS Initial or Follow up Brief Note Subjective/Other Information Screen for LOS. Unable to reach pt by phone. Per RN notes pt ate 100% of dinner yesterday. Nutrition Intervention Revisit per MD consult or patient Sign Off request:
[2020-05-20] MEDS ORDERED: METOPROLOL TARTRATE 25 MG TAB PO ONE (17:30)
[2020-05-20] MEDS: METOPROLOL TARTRATE 25 MG TAB PO SCH (22:30)
[2020-05-20] MEDS: ALPRAZolam 0.25 MG TAB PO PRN (22:32)
[2020-05-21] MEDS: methylPREDNISolone Sod Succinate 40 MG/1 ML INJ IV SCH ×2 (06:35→18:06)
[2020-05-21] MEDS: ENOXAPARIN 120 MG/0.8 ML INJ SUB-Q SCH ×2 (09:52→21:37)
[2020-05-21] MEDS: METOPROLOL TARTRATE 25 MG TAB PO SCH ×2 (09:53→22:00)
[2020-05-21] MEDS: FOLIC ACID 1 MG TAB PO SCH (09:53)
--- NOTE | 2020-05-21 09:58 | Progress Note ---
Assessment and Plan Cultures: Blood culture 04/28/2020 no growth today SARS CoV2 PCR positive Assessment: 50 years old male with history of alcohol dependence and obesity admitted on 05/09/2020 due to 5-day history of generalized malaise, fatigue, body aches, dyspnea exertion, cough and shortness of breath, tested positive for COVID-19 2 days before admission: #Severe sepsis: Improving; likely due to bilateral pneumonia. #Severe COVID pneumonia: Chest x-ray with bilateral patchy infiltrates. SARS-CoV-2 PCR positive. Inflammatory markers markedly elevated, D-dimer 10,000, ferritin 38,000. Noted elevated procalcitonin likely due to elevated creatinine, however will cover for bacterial component given severe sepsis. Repeat chest x-ray with worsening bilateral lower airspace disease. #Acute hypoxemic respiratory failure: O2 sats dropped to 63% on admission, currently on high flow nasal cannula 100% #Elevated LFTs: from COVID, however no higher than 10 times normal. #SEN: from COVID, already improving. #Elevated D-dimer: Venous ultrasound no DVT. Recommendations: -Obtain transthoracic echo to evaluate EF -pending -Close monitoring may require intubation -Obtain chest CTA r/o PE -when stable -Pulmonary on board -SARS CoV-2 IgG positive patient is NOT a candidate for COVID convalescent plasma -Patient started on Solu-Medrol -Completed remdesivir -Monitor inflammatory markers - ferritin, Ddimer, CRP, LDH -Completed ceftriaxone/azithromycin -Continue anticoagulation per System Protocol -continue full dose anticoagulation given elevated D-dimer -Prone positioning as possible All laboratory, cultures and imaging were reviewed. High risk mortality. Will follow Arcelia Acosta MD Infectious Diseases Patient [facility] M [phone] O [phone] Subjective Date of service: 05/21/20 Principal diagnosis: Ac hypoxemic resp failure; COVID-19; Severe Sepsis; Shaggy PNA; Alcohol Abuse Interval history: Remains tachycardic, high flow nasal cannula. Tolerating prone positioning. Objective - Exam Narrative Exam: Physical Exam: reviewed ED and hospitalist notes, limited due to conservation of PPE and decrease risk of transmission. General appearance: limited due to conservation of PPE Eyes: limited due to conservation of PPE HENT: Atraumatic; limited due to conservation of PPE Lungs: limited due to conservation of PPE CV: limited due to conservation of PPE Abdomen: limited due to conservation of PPE Extremities: limited due to conservation of PPE Skin: limited due to conservation of PPE Psych: limited due to conservation of PPE Neuro: limited due to conservation of PPE - Constitutional Vitals: Vital Signs Temp Pulse Resp BP Pulse Ox 98 F 117 H 38 H 113/77 86 05/21/20 04:00 05/21/20 09:53 05/21/20 08:40 05/21/20 09:53 05/21/20 08:40 Temperature -Last 24 Hours Temperature 98 F Temperature 98.2 F Temperature 98.8 F Temperature 98.3 F Temperature 98.0 F - Labs CBC & Chem 7: 05/17/20 05:50 05/17/20 05:50
[2020-05-21] MEDS: ALPRAZolam 0.25 MG TAB PO PRN (16:17)
--- NOTE | 2020-05-21 17:46 | Progress Note ---
Assessment and Plan Acute hypoxemic respiratory failure due to COVID-19 Severe Sepsis Bilateral pneumonia Acute kidney injury (SEN) with acute tubular necrosis (ATN) Alcohol dependence Elevated liver function tests - agrees to semi-elective intubation - transfer to ICU - VAP bundle - continue BIPAP now till intubated - continue empiric full anticoagulation - continue care as below otherwise; - continue airborne and contact isolation - wean supplemental oxygen for target O2 sat's > 92% acutely - Prone positioning as tolerated - continue bronchodilators with pulmonary hygiene per RT (MDI's) - continue empiric full dose anticoagulation re: elevated d-dimers / hypercoagulable state - NOT a candidate for COVID convalescent plasma - continue systemic steroids X >/= 10 days - complete remdesivir dosing (total 5 days) - trend inflammatory markers - ferritin, Ddimer, CRP, LDH; to aid clinical decision making - Continue ceftriaxone total 5 days and azithromycin total 3 days given severe sepsis - Monitor liver function test on Remdesivir - accuchecks with glycemic control per SSI (While critically ill target blood glucose of 140-180 mg/dL; avoid hypoglycemia) - avoid nephrotoxins, renally dose all medications - continue to avoid benzodiazepine's, reduce the possibility of delirium - antiinfective's per ID rec's - prn analgesia per CPOT score - Maintenance of sleep-wake cycle, avoid delirium - aspiration precautions - G.I. & VTE prophylaxis - PT/OT/ROM exercises - continue mobility protocols for pressure ulcer prophylaxis - Monitor hemodynamics closely - continue other care per attending / other consultants - discharge planning ongoing concurrently .... Re-evaluate in am & prn CONDITION: CRITICAL PROGNOSIS: GUARDED CODE STATUS: FULL CODE The high probability of a clinically significant, sudden or life-threatening deterioration of the [respiratory, cardiovascular, hematologic, G.I. & neurolog ic] system(s) required my full and direct attention, intervention and personal management. The aggregate critical care time was [342] minutes without overlap. Time includes spent on; [x] Data Review and interpretation [x] Patient assessment and monitoring of vital signs [x] Documentation [x] Medication orders and management Subjective Date of service: 05/21/20 Principal diagnosis: Ac hypoxemic resp failure; COVID-19; Severe Sepsis; Shaggy PNA; Alcohol Abuse Interval history: Patient is seen today for: Acute hypoxemic respiratory failure due to COVID-19; Severe Sepsis; Bilateral pneumonia; Alcohol dependence; Elevated liver function tests Seen and examined at bedside; 24hour events reviewed; nursing and respiratory care staff consulted; no adverse overnight events reported to me; resting in bed; remains on 100% HFNC but O2 sat's now in low 80's; No N/V/F/C but he admits its harder to breath Objective Vital Signs - 12hr 05/21/20 05/21/20 05/21/20 06:00 07:00 08:00 Temperature 98.2 F Pulse Rate 110 H 105 H 100 H Pulse Rate [ 100 H From Monitor] Respiratory 15 21 28 H Rate Blood Pressure 107/68 97/64 108/70 O2 Sat by Pulse 93 94 88 Oximetry 05/21/20 05/21/20 05/21/20 08:40 08:46 09:01 Temperature Pulse Rate 117 H 114 H 114 H Pulse Rate [ From Monitor] Respiratory 38 H 35 H Rate Blood Pressure 108/70 113/77 O2 Sat by Pulse 86 87 Oximetry 05/21/20 05/21/20 05/21/20 09:53 10:00 13:57 Temperature Pulse Rate 117 H 120 H 108 H Pulse Rate [ From Monitor] Respiratory 25 H 33 H Rate Blood Pressure 113/77 109/65 105/69 O2 Sat by Pulse 85 90 Oximetry 05/21/20 16:30 Temperature Pulse Rate 122 H Pulse Rate [ From Monitor] Respiratory 31 H Rate Blood Pressure 125/84 O2 Sat by Pulse 90 Oximetry Constitutional: asleep, appears uncomfortable, other (middle aged obese male with moderately increased respiratory effort at rest on BIPAP) Eyes: non-icteric ENT: oropharynx moist, other (mallampati 3) Neck: supple, no JVD Effort: mildly labored Ascultation: Bilateral: diminished breath sounds, rhonchi (scant) Percussion: Bilateral: not dull Cardiovascular: regular rate and rhythm Gastrointestinal: normoactive bowel sounds, soft, non-tender, non-distended (protuberant) Integumentary: normal Extremities: no cyanosis, no edema, pulses normal, no ischemia or petechiae Neurologic: normal mental status, non-focal exam, pupils equal and round, CN II- XII normal, motor strength normal and Psychiatric: mood appropriate, anxious CBC and BMP: 05/17/20 05:50 05/17/20 05:50 ABG, PT/INR, D-dimer: ABG ABG pH 7.428 (7.320-7.450) 05/09/20 15:56 POC ABG pCO2 34.0 mmHg (32.0-48.0) 05/09/20 15:56 POC ABG pO2 57.3 mmHg (83-108) L 05/09/20 15:56 POC ABG HCO3 22.0 05/09/20 15:56 PT/INR, D-dimer D-Dimer 1887.82 ng/mlDDU (0-234) H 05/20/20 08:16 Abnormal lab findings: Abnormal Labs 05/09/20 05/09/20 05/09/20 12:59 12:59 12:59 WBC 11.8 H MCV 96 H MCH 34 H MCHC 35 H RDW Lymph % (Auto) 6.9 L Lymph # (Auto) 0.8 L Seg Neutrophils % 87.5 H Seg Neuts % (Manual) Lymphocytes % (Manual) Seg Neutrophils # 10.3 H Seg Neutrophils # Man D-Dimer POC ABG pO2 ABG Oxyhemoglobin ABG Sodium ABG Glucose Sodium 130 L Potassium 3.5 L Chloride 86.4 L Carbon Dioxide BUN 33 H Creatinine 2.3 H Glucose 156 H POC Glucose Lactic Acid Calcium Magnesium Ferritin Total Bilirubin 3.40 H Direct Bilirubin 1.7 H AST 385 H ALT 134 H Lactate Dehydrogenase C-Reactive Protein Total Protein Albumin 3.0 L Arterial Blood Glucose Arterial Blood Ionized Calcium Urine WBC (Auto) Coronavirus (PCR) SARS-CoV-2 IgG Ab 05/09/20 05/09/20 05/09/20 12:59 12:59 12:59 WBC MCV MCH MCHC RDW Lymph % (Auto) Lymph # (Auto) Seg Neutrophils % Seg Neuts % (Manual) Lymphocytes % (Manual) Seg Neutrophils # Seg Neutrophils # Man D-Dimer 3242.51 H POC ABG pO2 ABG Oxyhemoglobin ABG Sodium ABG Glucose Sodium Potassium Chloride Carbon Dioxide BUN Creatinine Glucose 158 H POC Glucose Lactic Acid 3.50 H* Calcium Magnesium Ferritin Total Bilirubin Direct Bilirubin AST ALT Lactate Dehydrogenase 2166 H C-Reactive Protein 39.00 H Total Protein Albumin Arterial Blood Glucose Arterial Blood Ionized Calcium Urine WBC (Auto) Coronavirus (PCR) SARS-CoV-2 IgG Ab 05/09/20 05/09/20 05/09/20 12:59 14:20 14:20 WBC MCV MCH MCHC RDW Lymph % (Auto) Lymph # (Auto) Seg Neutrophils % Seg Neuts % (Manual) Lymphocytes % (Manual) Seg Neutrophils # Seg Neutrophils # Man D-Dimer 2861.78 H POC ABG pO2 ABG Oxyhemoglobin ABG Sodium ABG Glucose Sodium Potassium Chloride Carbon Dioxide BUN Creatinine Glucose POC Glucose Lactic Acid 2.20 H* Calcium Magnesium Ferritin 86855.0 H Total Bilirubin Direct Bilirubin AST ALT Lactate Dehydrogenase C-Reactive Protein Total Protein Albumin Arterial Blood Glucose Arterial Blood Ionized Calcium Urine WBC (Auto) Coronavirus (PCR) SARS-CoV-2 IgG Ab 05/09/20 05/09/20 05/09/20 14:20 14:20 15:56 WBC MCV MCH MCHC RDW Lymph % (Auto) Lymph # (Auto) Seg Neutrophils % Seg Neuts % (Manual) Lymphocytes % (Manual) Seg Neutrophils # Seg Neutrophils # Man D-Dimer POC ABG pO2 57.3 L ABG Oxyhemoglobin 86.3 L ABG Sodium 129.9 L ABG Glucose 146 H Sodium Potassium Chloride Carbon Dioxide BUN Creatinine Glucose 143 H POC Glucose Lactic Acid Calcium Magnesium Ferritin 97901.0 H Total Bilirubin Direct Bilirubin AST ALT Lactate Dehydrogenase 1953 H C-Reactive Protein 33.50 H Total Protein Albumin Arterial Blood Glucose 146 H Arterial Blood Ionized Calcium 3.9 L Urine WBC (Auto) Coronavirus (PCR) SARS-CoV-2 IgG Ab 05/10/20 05/10/20 05/10/20 10:32 10:32 18:50 WBC 15.4 H MCV 97 H MCH 33 H MCHC RDW 13.1 L Lymph % (Auto) Lymph # (Auto) Seg Neutrophils % Seg Neuts % (Manual) 89.0 H Lymphocytes % (Manual) 8.0 L Seg Neutrophils # Seg Neutrophils # Man 13.7 H D-Dimer POC ABG pO2 ABG Oxyhemoglobin ABG Sodium ABG Glucose Sodium 136 L Potassium Chloride 97.4 L Carbon Dioxide BUN 37 H Creatinine 1.7 H Glucose 209 H POC Glucose Lactic Acid Calcium Magnesium Ferritin > 2000.0 H Total Bilirubin Direct Bilirubin AST ALT Lactate Dehydrogenase C-Reactive Protein Total Protein Albumin Arterial Blood Glucose Arterial Blood Ionized Calcium Urine WBC (Auto) Coronavirus (PCR) SARS-CoV-2 IgG Ab 05/10/20 05/10/20 05/10/20 18:50 19:00 Unknown WBC MCV MCH MCHC RDW Lymph % (Auto) Lymph # (Auto) Seg Neutrophils % Seg Neuts % (Manual) Lymphocytes % (Manual) Seg Neutrophils # Seg Neutrophils # Man D-Dimer > 33030 H POC ABG pO2 ABG Oxyhemoglobin ABG Sodium ABG Glucose Sodium Potassium Chloride Carbon Dioxide BUN Creatinine Glucose POC Glucose Lactic Acid Calcium Magnesium Ferritin Total Bilirubin Direct Bilirubin AST ALT Lactate Dehydrogenase 1879 H C-Reactive Protein 24.80 H Total Protein Albumin Arterial Blood Glucose Arterial Blood Ionized Calcium Urine WBC (Auto) 11.0 H Coronavirus (PCR) SARS-CoV-2 IgG Ab 05/10/20 05/11/20 05/11/20 Unknown 07:30 07:30 WBC MCV MCH MCHC RDW Lymph % (Auto) Lymph # (Auto) Seg Neutrophils % Seg Neuts % (Manual) Lymphocytes % (Manual) Seg Neutrophils # Seg Neutrophils # Man D-Dimer > 2000 H POC ABG pO2 ABG Oxyhemoglobin ABG Sodium ABG Glucose Sodium Potassium Chloride 96.3 L Carbon Dioxide BUN 36 H Creatinine Glucose 161 H POC Glucose Lactic Acid Calcium 8.3 L Magnesium Ferritin Total Bilirubin 1.50 H Direct Bilirubin 0.6 H AST 178 H ALT 111 H Lactate Dehydrogenase C-Reactive Protein Total Protein Albumin 3.0 L Arterial Blood Glucose Arterial Blood Ionized Calcium Urine WBC (Auto) Coronavirus (PCR) Positive A SARS-CoV-2 IgG Ab 05/11/20 05/11/20 05/11/20 07:30 07:30 07:30 WBC MCV MCH MCHC RDW Lymph % (Auto) Lymph # (Auto) Seg Neutrophils % Seg Neuts % (Manual) Lymphocytes % (Manual) Seg Neutrophils # Seg Neutrophils # Man D-Dimer POC ABG pO2 ABG Oxyhemoglobin ABG Sodium ABG Glucose Sodium Potassium Chloride Carbon Dioxide BUN Creatinine Glucose POC Glucose Lactic Acid Calcium Magnesium Ferritin 45275.0 H Total Bilirubin Direct Bilirubin AST ALT Lactate Dehydrogenase 1523 H C-Reactive Protein 12.90 H Total Protein Albumin Arterial Blood Glucose Arterial Blood Ionized Calcium Urine WBC (Auto) Coronavirus (PCR) SARS-CoV-2 IgG Ab Reactive A 05/13/20 05/13/20 05/15/20 05:20 05:20 08:15 WBC MCV MCH MCHC RDW Lymph % (Auto) Lymph # (Auto) Seg Neutrophils % Seg Neuts % (Manual) Lymphocytes % (Manual) Seg Neutrophils # Seg Neutrophils # Man D-Dimer > 15529 H 5318.28 H POC ABG pO2 ABG Oxyhemoglobin ABG Sodium ABG Glucose Sodium Potassium Chloride Carbon Dioxide 32 H BUN 30 H Creatinine Glucose 156 H POC Glucose Lactic Acid Calcium Magnesium 2.60 H Ferritin Total Bilirubin 1.40 H Direct Bilirubin AST 121 H ALT 119 H Lactate Dehydrogenase 957 H C-Reactive Protein 4.00 H Total Protein Albumin 3.0 L Arterial Blood Glucose Arterial Blood Ionized Calcium Urine WBC (Auto) Coronavirus (PCR) SARS-CoV-2 IgG Ab 05/15/20 05/15/20 05/15/20 08:15 08:15 08:15 WBC 12.4 H MCV 98 H MCH 33 H MCHC RDW Lymph % (Auto) 9.7 L Lymph # (Auto) Seg Neutrophils % 86.8 H Seg Neuts % (Manual) Lymphocytes % (Manual) Seg Neutrophils # 10.8 H Seg Neutrophils # Man D-Dimer POC ABG pO2 ABG Oxyhemoglobin ABG Sodium ABG Glucose Sodium Potassium Chloride 94.8 L Carbon Dioxide 32 H BUN 22 H Creatinine Glucose 115 H POC Glucose Lactic Acid Calcium 8.3 L Magnesium Ferritin 2494.0 H Total Bilirubin Direct Bilirubin AST 73 H ALT 121 H Lactate Dehydrogenase 835 H C-Reactive Protein 3.40 H Total Protein 6.1 L Albumin 3.0 L Arterial Blood Glucose Arterial Blood Ionized Calcium Urine WBC (Auto) Coronavirus (PCR) SARS-CoV-2 IgG Ab 05/17/20 05/17/20 05/17/20 05:50 05:50 05:50 WBC MCV MCH MCHC RDW Lymph % (Auto) Lymph # (Auto) Seg Neutrophils % Seg Neuts % (Manual) Lymphocytes % (Manual) Seg Neutrophils # Seg Neutrophils # Man D-Dimer 2911.42 H POC ABG pO2 ABG Oxyhemoglobin ABG Sodium ABG Glucose Sodium 136 L Potassium Chloride 96.0 L Carbon Dioxide 34 H BUN 22 H Creatinine Glucose 140 H POC Glucose Lactic Acid Calcium Magnesium Ferritin 2082.0 H Total Bilirubin Direct Bilirubin AST ALT 75 H Lactate Dehydrogenase 601 H C-Reactive Protein 2.70 H Total Protein Albumin 2.9 L Arterial Blood Glucose Arterial Blood Ionized Calcium Urine WBC (Auto) Coronavirus (PCR) SARS-CoV-2 IgG Ab 05/17/20 05/18/20 05/20/20 05:50 12:22 08:16 WBC MCV 98 H MCH 33 H MCHC RDW Lymph % (Auto) 8.0 L Lymph # (Auto) 0.8 L Seg Neutrophils % 89.3 H Seg Neuts % (Manual) Lymphocytes % (Manual) Seg Neutrophils # 8.8 H Seg Neutrophils # Man D-Dimer 1887.82 H POC ABG pO2 ABG Oxyhemoglobin ABG Sodium ABG Glucose Sodium Potassium Chloride Carbon Dioxide BUN Creatinine Glucose POC Glucose 178 H Lactic Acid Calcium Magnesium Ferritin Total Bilirubin Direct Bilirubin AST ALT Lactate Dehydrogenase C-Reactive Protein Total Protein Albumin Arterial Blood Glucose Arterial Blood Ionized Calcium Urine WBC (Auto) Coronavirus (PCR) SARS-CoV-2 IgG Ab 05/20/20 05/20/20 08:16 08:16 WBC MCV MCH MCHC RDW Lymph % (Auto) Lymph # (Auto) Seg Neutrophils % Seg Neuts % (Manual) Lymphocytes % (Manual) Seg Neutrophils # Seg Neutrophils # Man D-Dimer POC ABG pO2 ABG Oxyhemoglobin ABG Sodium ABG Glucose Sodium Potassium Chloride Carbon Dioxide BUN Creatinine Glucose POC Glucose Lactic Acid Calcium Magnesium Ferritin 1960.0 H Total Bilirubin Direct Bilirubin AST ALT Lactate Dehydrogenase 705 H C-Reactive Protein 3.10 H Total Protein Albumin Arterial Blood Glucose Arterial Blood Ionized Calcium Urine WBC (Auto) Coronavirus (PCR) SARS-CoV-2 IgG Ab Chest x-ray: other (none today) Allied health notes reviewed: nursing
[2020-05-21] MEDS ORDERED: MINERAL OIL/PETROLATUM, WHITE OPHTH OINT 3.5 GM OU PRN ×2 (18:41→20:33)
[2020-05-21] MEDS ORDERED: LIP THERAPY VASELINE TP PRN ×2 (18:41→20:33)
[2020-05-21] MEDS ORDERED: fentaNYL 100 MCG/2 ML INJ IV PRN (18:41)
--- NOTE | 2020-05-21 20:25 | Event Note ---
Date: 05/21/20 called to ICU 267 to intubate pt with Covid 19. Pt. met on bipap with saturations in the high 80s, 130p, 30RR, 149/103. RN and respiratory at bedside. Succ 200mg, etomidate 20mg, and lidocaine 100mg given after preoxygenation. 8.0 ETT placed with the use of a glidescope 4 on first attempt. CO2 color changed and confirmed. Vitals are as follows: 158/102, 130p, 30RR, 90%. Hand off given.
--- NOTE | 2020-05-21 20:44 | Progress Note ---
Assessment and Plan Assessment and plan: Patient remains hypoxemic, requiring high flow oxygen and today on continuous BiPAP Patient is in mild distress, secondary to severe COVID-19 pneumonia And severe hypoxemia, critically ill with poor prognosis. --Elevated D-dimers; on full dose anticoagulation However ID requested to get CTA chest, patient is unstable to go for CT As he is requiring high flow oxygen. -- Acute hypoxemic respiratory failure; Requiring continuous very high flow oxygen Patient is on 100% nonrebreather continuous Patient has severe COVID-19 bilateral pneumonia Very high inflammatory markers Critically ill with poor prognosis Close monitoring in IMCU/ICU If no improvement intubate --Elevated D-dimers; check CTA to rule out PE Lower extremity venous Doppler to rule out DVT Patient is already on full dose anticoagulation per COVID-19 protocol -- Novel coronavirus infection with Bilateral pneumonia Coronavirus protocol: IV steroid therapy, IV remdesivir, isolation precautions, contact precautions, prone positioning while in bed, pulmonary toilet. consulted ID --Severe sepsis, due to COVID 19 PNA cont to treat for COVID -- Acute kidney injury (SEN) , likely vasomotor nephropathy Resolved, IV fluids, avoid nephrotoxins -- Alcohol dependence; no episodes of withdrawal symptoms Thiamine, folic acid, multivitamin, CIWA protocol. -- Elevated liver function tests Suspected secondary to alcoholic liver disease. Supportive care, alcohol cessation, patient counseled. -- DVT prophylaxis prophylactic AC with lovenox for elevated D-dimer We will closely monitor patient and adjust management as needed Plan of care reviewed with the patient and his nurse Patient has severe Covid pneumonia, severe hypoxia Critically ill very poor prognosis Full CODE STATUS The high probability of a clinically significant, sudden or life threatening deterioration of the [Covid pneumonia, ID, respiratory, liver] system(s) required my full and direct attention, intervention and personal management. The aggregate critical care time was [32] minutes. This time is in addition to time spent performing reported procedures but includes the following: [x] Data Review and interpretation [x] Patient assessment and monitoring of vital signs [x] Documentation [x] Medication orders and management. Brief history; 50 YO Male with Obesity, ETOH Dependence presents to ED for evaluation for shortness of breath, generalized weakness, fatigue, malaise, body aches, decreased exercise tolerance over the past 5 days. EMS was notified and upon arrival the patient was found to be in distress with a pulse oximetry of 76% on room air as well as fever to 103 F. In the ER chest x-ray and was found to have bilateral pneumonia. Patient admitted to medical floor and initiated on pneumonia protocol as well as COVID-19 protocol. Patient severe Covid pneumonia, with persistent severe hypoxemia requiring very high flow oxygen Today on continuous BiPAP, patient is in mild distress, critically ill with very poor prognosis. 05/17/2020; patient with severe COVID-19 pneumonia, in isolation room Patient is on high flow oxygen, and BiPAP 05/18/20; patient feels slightly better still hypoxic, requiring continuous high flow oxygen and BiPAP Respiratory team trying to wean 05/19/20; patient is severely hypoxemic requiring continuous BiPAP today, complains of generalized weakness Trying to wean off high flow oxygen, patient is in isolation 05/20/2020; patient remains on high flow oxygen/BiPAP/100% nonrebreather. Still is hypoxemic Has sinus tachycardia patient in mild distress Wean off high flow oxygen as tolerated, pulmonary critical following 05/21/20; patient is critically ill, on continuous BiPAP remains hypoxemic in mild distress Patient has severe Covid Pneumonia with persistent hypoxemia and poor prognosis History Interval history: I have seen and examined the patient in IMCU at the bedside this morning Patient was on high flow oxygen/BiPAP remains hypoxic in mild distress Patient complains of shortness of breath and generalized weakness On continuous BiPAP, Vital signs noted Hospitalist Physical - Constitutional Vitals: Temp Pulse Resp BP Pulse Ox 100.0 F H 121 H 39 H 119/79 93 05/21/20 20:00 05/21/20 18:00 05/21/20 18:00 05/21/20 18:00 05/21/20 18:00 General appearance: Present: mild distress, well-nourished, obese (Morbidly obe se), other (on continuous BiPAP today) - EENT Eyes: Present: PERRL, EOM intact - Neck Neck: Present: supple, normal ROM - Respiratory Respiratory effort: labored Respiratory: bilateral: diminished, rhonchi, negative: rales, wheezing - Cardiovascular Rhythm: regular Heart Sounds: Present: S1 & S2 - Extremities Extremities: no ischemia, No edema - Abdominal General gastrointestinal: soft, non-tender, non-distended, normal bowel sounds - Integumentary Integumentary: Present: clear, warm - Psychiatric Psychiatric: appropriate mood/affect, cooperative - Neurologic Neurologic: moves all extremities Results - Labs CBC & Chem 7: 05/17/20 05:50 05/17/20 05:50 Labs: Laboratory Last Values WBC 9.8 K/mm3 (4.5-11.0) 05/17/20 05:50 RBC 3.94 M/mm3 (3.65-5.03) 05/17/20 05:50 Hgb 13.2 gm/dl (11.8-15.2) 05/17/20 05:50 Hct 38.7 % (35.5-45.6) 05/17/20 05:50 MCV 98 fl (84-94) H 05/17/20 05:50 MCH 33 pg (28-32) H 05/17/20 05:50 MCHC 34 % (32-34) 05/17/20 05:50 RDW 13.2 % (13.2-15.2) 05/17/20 05:50 Plt Count 192 K/mm3 (140-440) 05/17/20 05:50 Lymph % (Auto) 8.0 % (13.4-35.0) L 05/17/20 05:50 [place] % (Auto) 2.6 % (0.0-7.3) 05/17/20 05:50 Eos % (Auto) 0.0 % (0.0-4.3) 05/17/20 05:50 Baso % (Auto) 0.1 % (0.0-1.8) 05/17/20 05:50 Lymph # (Auto) 0.8 K/mm3 (1.2-5.4) L 05/17/20 05:50 [place] # (Auto) 0.3 K/mm3 (0.0-0.8) 05/17/20 05:50 Eos # (Auto) 0.0 K/mm3 (0.0-0.4) 05/17/20 05:50 Baso # (Auto) 0.0 K/mm3 (0.0-0.1) 05/17/20 05:50 Add Manual Diff Complete 05/10/20 10:32 Total Counted 100 05/10/20 10:32 Seg Neutrophils % 89.3 % (40.0-70.0) H 05/17/20 05:50 Seg Neuts % (Manual) 89.0 % (40.0-70.0) H 05/10/20 10:32 Band Neutrophils % 1.0 % 05/10/20 10:32 Lymphocytes % (Manual) 8.0 % (13.4-35.0) L 05/10/20 10:32 Reactive Lymphs % (Man) 0 % 05/10/20 10:32 Monocytes % (Manual) 2.0 % (0.0-7.3) 05/10/20 10:32 Eosinophils % (Manual) 0 % (0.0-4.3) 05/10/20 10:32 Basophils % (Manual) 0 % (0.0-1.8) 05/10/20 10:32 Metamyelocytes % 0 % 05/10/20 10:32 Myelocytes % 0 % 05/10/20 10:32 Promyelocytes % 0 % 05/10/20 10:32 Blast Cells % 0 % 05/10/20 10:32 Nucleated RBC % Not Reportable 05/10/20 10:32 Seg Neutrophils # 8.8 K/mm3 (1.8-7.7) H 05/17/20 05:50 Seg Neutrophils # Man 13.7 K/mm3 (1.8-7.7) H 05/10/20 10:32 Band Neutrophils # 0.2 K/mm3 05/10/20 10:32 Lymphocytes # (Manual) 1.2 K/mm3 (1.2-5.4) 05/10/20 10:32 Abs React Lymphs (Man) 0.0 K/mm3 05/10/20 10:32 Monocytes # (Manual) 0.3 K/mm3 (0.0-0.8) 05/10/20 10:32 Eosinophils # (Manual) 0.0 K/mm3 (0.0-0.4) 05/10/20 10:32 Basophils # (Manual) 0.0 K/mm3 (0.0-0.1) 05/10/20 10:32 Metamyelocytes # 0.0 K/mm3 05/10/20 10:32 Myelocytes # 0.0 K/mm3 05/10/20 10:32 Promyelocytes # 0.0 K/mm3 05/10/20 10:32 Blast Cells # 0.0 K/mm3 05/10/20 10:32 WBC Morphology Not Reportable 05/10/20 10:32 Hypersegmented Neuts Not Reportable 05/10/20 10:32 Hyposegmented Neuts Not Reportable 05/10/20 10:32 Hypogranular Neuts Not Reportable 05/10/20 10:32 Smudge Cells Not Reportable 05/10/20 10:32 Toxic Granulation Not Reportable 05/10/20 10:32 Toxic Vacuolation Not Reportable 05/10/20 10:32 Dohle Bodies Not Reportable 05/10/20 10:32 Pelger-Huet Anomaly Not Reportable 05/10/20 10:32 Jason Rods Not Reportable 05/10/20 10:32 Platelet Estimate Consistent w auto 05/10/20 10:32 Clumped Platelets Rare 05/10/20 10:32 Plt Clumps, EDTA Not Reportable 05/10/20 10:32 Large Platelets Not Reportable 05/10/20 10:32 Giant Platelets Not Reportable 05/10/20 10:32 Platelet Satelliting Not Reportable 05/10/20 10:32 Plt Morphology Comment Not Reportable 05/10/20 10:32 RBC Morphology Normal 05/10/20 10:32 Dimorphic RBCs Not Reportable 05/10/20 10:32 Polychromasia Not Reportable 05/10/20 10:32 Hypochromasia Not Reportable 05/10/20 10:32 Poikilocytosis Not Reportable 05/10/20 10:32 Anisocytosis Not Reportable 05/10/20 10:32 Microcytosis Not Reportable 05/10/20 10:32 Macrocytosis Not Reportable 05/10/20 10:32 Spherocytes Not Reportable 05/10/20 10:32 Pappenheimer Bodies Not Reportable 05/10/20 10:32 Sickle Cells Not Reportable 05/10/20 10:32 Target Cells Not Reportable 05/10/20 10:32 Tear Drop Cells Not Reportable 05/10/20 10:32 Ovalocytes Not Reportable 05/10/20 10:32 Helmet Cells Not Reportable 05/10/20 10:32 [place] Bodies Not Reportable 05/10/20 10:32 [place] Rings Not Reportable 05/10/20 10:32 [place] Cells Not Reportable 05/10/20 10:32 Bite Cells Not Reportable 05/10/20 10:32 Crenated Cell Not Reportable 05/10/20 10:32 Elliptocytes Not Reportable 05/10/20 10:32 Acanthocytes (Spur) Not Reportable 05/10/20 10:32 Rouleaux Not Reportable 05/10/20 10:32 Hemoglobin C Crystals Not Reportable 05/10/20 10:32 Schistocytes Not Reportable 05/10/20 10:32 Malaria parasites Not Reportable 05/10/20 10:32 Josue Bodies Not Reportable 05/10/20 10:32 Hem Pathologist Commnt No 05/10/20 10:32 D-Dimer 1887.82 ng/mlDDU (0-234) H 05/20/20 08:16 ABG pH 7.428 (7.320-7.450) 05/09/20 15:56 POC ABG pCO2 34.0 mmHg (32.0-48.0) 05/09/20 15:56 POC ABG pO2 57.3 mmHg (83-108) L 05/09/20 15:56 POC ABG HCO3 22.0 05/09/20 15:56 POC ABG Base Excess -1.7 05/09/20 15:56 ABG Hemoglobin 13.7 (12.0-17.5) 05/09/20 15:56 ABG Oxyhemoglobin 86.3 (94-98) L 05/09/20 15:56 ABG Methemoglobin 0.3 (0.0-1.5) 05/09/20 15:56 ABG Sodium 129.9 mmol/L (136.0-145.0) L 05/09/20 15:56 ABG Potassium 3.4 mmol/L (3.40-4.50) 05/09/20 15:56 ABG Chloride 100.0 mmol/L (98-107) 05/09/20 15:56 ABG Glucose 146 mg/dL (65-95) H 05/09/20 15:56 Carboxyhemoglobin 1.3 (0.5-1.5) 05/09/20 15:56 FiO2 100 05/09/20 15:56 Sodium 136 mmol/L (137-145) L 05/17/20 05:50 Potassium 4.3 mmol/L (3.6-5.0) 05/17/20 05:50 Chloride 96.0 mmol/L (98-107) L 05/17/20 05:50 Carbon Dioxide 34 mmol/L (22-30) H 05/17/20 05:50 Anion Gap 10 mmol/L 05/17/20 05:50 BUN 22 mg/dL (9-20) H 05/17/20 05:50 Creatinine 0.8 mg/dL (0.8-1.3) 05/17/20 05:50 Estimated GFR > 60 ml/min 05/17/20 05:50 BUN/Creatinine Ratio 28 % 05/17/20 05:50 Glucose 140 mg/dL (75-100) H 05/17/20 05:50 POC Glucose 178 mg/dL (70-105) H 05/18/20 12:22 Lactic Acid 1.80 mmol/L (0.7-2.0) 05/09/20 Unknown Calcium 8.6 mg/dL (8.4-10.2) 05/17/20 05:50 Phosphorus 3.20 mg/dL (2.5-4.5) 05/13/20 05:20 Magnesium 2.60 mg/dL (1.7-2.3) H 05/13/20 05:20 Ferritin 1960.0 ng/mL (30.0-300.0) H 05/20/20 08:16 Total Bilirubin 1.00 mg/dL (0.1-1.2) 05/17/20 05:50 Direct Bilirubin 0.6 mg/dL (0-0.2) H 05/11/20 07:30 Indirect Bilirubin 0.9 mg/dL 05/11/20 07:30 AST 38 units/L (5-40) 05/17/20 05:50 ALT 75 units/L (7-56) H 05/17/20 05:50 Alkaline Phosphatase 82 units/L (35-129) 05/17/20 05:50 Lactate Dehydrogenase 705 units/L (91-180) H 05/20/20 08:16 C-Reactive Protein 3.10 mg/dL (0.00-1.30) H 05/20/20 08:16 Total Protein 6.6 g/dL (6.3-8.2) 05/17/20 05:50 Albumin 2.9 g/dL (3.9-5) L 05/17/20 05:50 Albumin/Globulin Ratio 0.8 % 05/17/20 05:50 Procalcitonin 4.47 ng/mL (<0.15) 05/09/20 12:59 Arterial Blood Glucose 146 mg/dL (65-95) H 05/09/20 15:56 Arterial Blood Ionized Calcium 3.9 mg/dL (4.6-5.3) L 05/09/20 15:56 Urine Color Fauzia (Yellow) 05/10/20 Unknown Urine Turbidity Clear (Clear) 05/10/20 Unknown Urine pH 5.0 (5.0-7.0) 05/10/20 Unknown Ur Specific [place] 1.019 (1.003-1.030) 05/10/20 Unknown Urine Protein 100 mg/dl mg/dL (Negative) 05/10/20 Unknown Urine Glucose (UA) Neg mg/dL (Negative) 05/10/20 Unknown Urine Ketones Neg mg/dL (Negative) 05/10/20 Unknown Urine Blood Lg (Negative) 05/10/20 Unknown Urine Nitrite Neg (Negative) 05/10/20 Unknown Urine Bilirubin Neg (Negative) 05/10/20 Unknown Urine Urobilinogen 2.0 mg/dL (<2.0) 05/10/20 Unknown Ur Leukocyte Esterase Neg (Negative) 05/10/20 Unknown Urine WBC (Auto) 11.0 /HPF (0.0-6.0) H 05/10/20 Unknown Urine RBC (Auto) 2.0 /HPF (0.0-6.0) 05/10/20 Unknown U Epithel Cells (Auto) 1.0 /HPF (0-13.0) 05/10/20 Unknown Urine Bacteria (Auto) 1+ /HPF (Negative) 05/10/20 Unknown Urine Mucus Few /HPF 05/10/20 Unknown Plasma/Serum Alcohol < 0.01 % (0-0.07) 05/09/20 14:20 Coronavirus (PCR) Positive (Negative) A 05/10/20 Unknown SARS-CoV-2 IgG Ab Reactive (NonReactive) A 05/11/20 07:30 Cantor/IV: Voiding Method Urinal IV Catheter Type [Left Peripheral IV Antecubital] Active Medications - Current Medications Current Medications: Generic Name Dose Route Start Last Admin Trade Name Freq PRN Reason Stop Dose Admin Acetaminophen 650 mg 05/09/20 13:37 05/15/20 13:07 Tylenol PO 650 mg Q4H PRN Administration Pain MILD(1-3)/Fever >100.5/KERR Alprazolam 0.25 mg 05/20/20 17:53 05/21/20 16:17 Xanax PO 0.25 mg Q8H PRN Administration Anxiety Enoxaparin Sodium 110 mg 05/10/20 22:00 05/21/20 09:52 Enoxaparin 1 mg/kg (110 mg) 110 mg SUB-Q Administration Q12HR [facility] Protocol Fentanyl 50 mcg 05/21/20 18:41 Sublimaze IV Q10MIN PRN ANALGESIA Folic Acid 1 mg 05/09/20 15:36 05/21/20 09:53 Folvite PO 1 mg QDAY DESIRE Administration Guaifenesin 10 ml 05/16/20 22:38 05/20/20 22:29 Guaifenesin Dm Syrup PO 10 ml Q4H PRN Administration Cough Hydrophilic Ointment 1 applic 05/21/20 18:41 Vaseline Lip Therapy TP Q2HR PRN Dry Lips Hydrophilic Ointment 1 applic 05/21/20 20:33 Vaseline Lip Therapy TP Q2HR PRN Dry Lips Fentanyl Citrate 2,000 mcg in 100 mls @ 5.32 mls/hr 05/21/20 19:00 Fentanyl Drip Premix IV TITR DESIRE Protocol 1 MCG/KG/HR Propofol 1,000 mg in 100 mls @ 3.192 mls/hr 05/21/20 19:00 Diprivan 10 Mg/Ml IV TITR DESIRE Protocol 5 MCG/KG/MIN Lorazepam 2 mg 05/09/20 15:40 Ativan IV Q1HR PRN CIWA-Ar 8-15 Methylprednisolone Sodium Succinate 40 mg 05/20/20 18:00 05/21/20 18:06 Solu-Medrol IV 40 mg Q12H DESIRE Administration Metoprolol Tartrate 5 mg 05/20/20 17:52 Metoprolol IV Q6HR PRN Tachyarrhythmias Metoprolol Tartrate 12.5 mg 05/20/20 22:00 05/21/20 09:53 Metoprolol PO 12.5 mg BID DESIRE Administration Multi-Ingred Cream/Lotion/Oil/Oint 1 applic 05/21/20 18:41 Artificial Tears Ophth Oint OU Q4HR PRN Dry Eye(s) Multi-Ingred Cream/Lotion/Oil/Oint 1 applic 05/21/20 20:33 Artificial Tears Ophth Oint OU Q4HR PRN Dry Eye(s) Ondansetron HCl 4 mg 05/09/20 13:37 Zofran IV Q8H PRN Nausea And Vomiting Sodium Chloride 10 ml 05/09/20 22:00 05/21/20 09:54 Sodium Chloride Flush Syringe 10 Ml IV 10 ml BID DESIRE Administration Sodium Chloride 10 ml 05/09/20 13:37 Sodium Chloride Flush Syringe 10 Ml IV PRN PRN LINE FLUSH Nutrition/Malnutrition Assess - Dietary Evaluation Nutrition/Malnutrition Findings: Nutrition Notes Start: 05/17/20 14: 10 Freq: Status: Active Protocol: Document 05/17/20 14:10 LM (Rec: 05/17/20 14:13 LM [id number]) Nutrition Notes Need for Assessment generated from: LOS Initial or Follow up Brief Note Subjective/Other Information Screen for LOS. Unable to reach pt by phone. Per RN notes pt ate 100% of dinner yesterday. Nutrition Intervention Revisit per MD consult or patient Sign Off request:
--- NOTE | 2020-05-21 21:01 | XRay Report ---
XR chest 1V ap INDICATION / CLINICAL INFORMATION: ETT placement. COMPARISON: May 17, 2020 FINDINGS: SUPPORT DEVICES: Endotracheal tube terminates appropriately at the level of the clavicular heads. HEART / MEDIASTINUM: Unchanged. LUNGS / PLEURA: Lung parenchyma is not significantly changed. Costophrenic sulci are sharp. No pneu mothorax. ADDITIONAL FINDINGS: No significant additional findings. IMPRESSION: 1. No significant interval change in the diffuse bilateral airspace disease. Signer Name: Bubba Victoria MD Signed: 05/21/2020 8:56 PM Workstation Name: [id number]
[2020-05-21 21:18] LABS: ABG Base Excess 3.7 mmol/L (-2.0-3.0); ABG Methemoglobin 0.6 % (0.0-1.5); ABG Oxygen Saturation 86.2 % (95.0-99.0); ABG PCO2 36.8 mm Hg; ABG PH 7.483 pH Units (7.350-7.450)
[2020-05-21] MEDS: fentaNYL DRIP Premix 2,000 MCG/100 ML BAG IV SCH (21:26)
--- NOTE | 2020-05-22 04:10 | XRay Report ---
CHEST 1 VIEW 05/22/2020 2:59 AM INDICATION / CLINICAL INFORMATION: follow up respiratory failure. COMPARISON: 05/21/2020 FINDINGS: SUPPORT DEVICES: Stable, satisfactory device positioning. HEART / MEDIASTINUM: Stable. LUNGS / PLEURA: Stable patchy bilateral pulmonary opacities. No pneumothorax. ADDITIONAL FINDINGS: No significant additional findings. IMPRESSION: 1. No significant change. Signer Name: Lance Lynch MD Signed: 05/22/2020 4:05 AM Workstation Name: [email or web address]
[2020-05-22] MEDS: fentaNYL DRIP Premix 2,000 MCG/100 ML BAG IV SCH ×2 (05:50→15:18)
[2020-05-22] MEDS: methylPREDNISolone Sod Succinate 40 MG/1 ML INJ IV SCH ×2 (05:51→17:19)
[2020-05-22 08:14] LABS: Hematocrit 39.6 % (35.5-45.6); Hemoglobin 13.5 gm/dl (11.8-15.2); Mean Corpuscular HGB Conc 34 % (32-34); Mean Corpuscular Volume 98 fl (84-94); Platelet Count 167 K/mm3 (140-440); Red Blood Count 4.05 M/mm3 (3.65-5.03); Red Cell Distribution Width 13.9 % (13.2-15.2)
[2020-05-22 08:25] LABS: Alanine Aminotransferase 116 units/L (7-56); Albumin 2.6 g/dL (3.9-5); BUN/Creatinine Ratio 40; Blood Urea Nitrogen 40 mg/dL (9-20); Calcium 8.8 mg/dL (8.4-10.2); Hemolysis Index 24
[2020-05-22] MEDS: ENOXAPARIN 120 MG/0.8 ML INJ SUB-Q SCH (09:59)
[2020-05-22 10:17] LABS: Basophils % (Manual) 0 % (0.0-1.8); Eosinophils % (Manual) 0 % (0.0-4.3); Platelet Estimate Consistent w Auto; RBC Morphology Normal; Total Cells Counted 100
[2020-05-22] MEDS: METOPROLOL TARTRATE 25 MG TAB PO SCH (10:43)
[2020-05-22] MEDS: FOLIC ACID 1 MG TAB PO SCH (10:43)
--- NOTE | 2020-05-22 10:43 | XRay Report ---
XR abdomen 1V ap INDICATION: OGT placement verification COMPARISON: X-ray of chest performed same day FINDINGS/IMPRESSION: * Enteric tube terminates in the area of the proximal duodenum. Side-port likely located in the dist al stomach. * Airspace disease similar to prior x-ray of the chest. Signer Name: Bubba Victoria MD Signed: 05/22/2020 10:39 AM Workstation Name: [id number]
[2020-05-22] MEDS ORDERED: LIPASE 10,500/PROTEASE 25,000/AMYLASE 43,750 (UNITS) DR CAP FEEDTUBE PRN (13:01)
[2020-05-22] MEDS ORDERED: SIMPLE SYRUP 15 ML FEEDTUBE PRN ×2 (13:01)
[2020-05-22] MEDS ORDERED: SODIUM BICARBONATE 325 MG TAB FEEDTUBE PRN (13:01)
--- NOTE | 2020-05-22 16:00 | Progress Note ---
Assessment and Plan Cultures: Blood culture 04/28/2020 no growth today SARS CoV2 PCR positive Assessment: 50 years old male with history of alcohol dependence and obesity admitted on 05/09/2020 due to 5-day history of generalized malaise, fatigue, body aches, dyspnea exertion, cough and shortness of breath, tested positive for COVID-19 2 days before admission: #Severe sepsis: Improving; likely due to bilateral pneumonia. Leukocytosis up. #Severe COVID pneumonia: Chest x-ray with bilateral patchy infiltrates. SARS-CoV-2 PCR positive. Inflammatory markers markedly elevated, D-dimer 10,000, ferritin 38,000. Noted elevated procalcitonin likely due to elevated creatinine, however will cover for bacterial component given severe sepsis. Repeat chest x-ray with worsening bilateral lower airspace disease. #Acute hypoxemic respiratory failure: Now intubated on 05/22/2020 #Elevated LFTs: from COVID, however no higher than 10 times normal. #SEN: from COVID, already improving. #Elevated D-dimer: Venous ultrasound no DVT. Recommendations: -Obtain transthoracic echo to evaluate EF -pending -Obtain chest CTA r/o PE -when stable -Pulmonary on board -SARS CoV-2 IgG positive patient is NOT a candidate for COVID convalescent plasma -Patient started on Solu-Medrol -Completed remdesivir -Monitor inflammatory markers - ferritin, Ddimer, CRP, LDH -Completed ceftriaxone/azithromycin -Continue anticoagulation per System Protocol -continue full dose ant icoagulation given elevated D-dimer -Prone positioning as possible All laboratory, cultures and imaging were reviewed. High risk mortality. Will follow Arcelia Acosta MD Infectious Diseases Digital Research Analyst [facility] M [phone] O [phone] Subjective Date of service: 05/22/20 Principal diagnosis: Ac hypoxemic resp failure; COVID-19; Severe Sepsis; Shaggy PNA; Alcohol Abuse Interval history: Patient was intubated, FiO2 100%, no fever Objective - Exam Narrative Exam: Physical Exam: reviewed ED and hospitalist notes, limited due to conservation of PPE and decrease risk of transmission. General appearance: limited due to conservation of PPE Eyes: limited due to conservation of PPE HENT: Atraumatic; limited due to conservation of PPE Lungs: limited due to conservation of PPE CV: limited due to conservation of PPE Abdomen: limited due to conservation of PPE Extremities: limited due to conservation of PPE Skin: limited due to conservation of PPE Psych: limited due to conservation of PPE Neuro: limited due to conservation of PPE - Constitutional Vitals: Vital Signs Temp Pulse Resp BP Pulse Ox 98.3 F 104 H 21 101/59 93 05/22/20 12:03 05/22/20 15:54 05/22/20 15:00 05/22/20 15:54 05/22/20 15:54 Temperature -Last 24 Hours Temperature 98.3 F Temperature 97.9 F Temperature 97.9 F Temperature 97.4 F Temperature 98.2 F Temperature 100.0 F Temperature 98.9 F - Labs CBC & Chem 7: 05/22/20 07:53 05/22/20 07:53 Labs: Abnormal lab results 05/21/20 05/22/20 05/22/20 Range/Units 21:10 04:01 07:53 WBC 19.2 H (4.5-11.0) K/mm3 MCV 98 H (84-94) fl MCH 34 H (28-32) pg Seg Neuts % (Manual) 96.0 H (40.0-70.0) % Lymphocytes % (Manual) 1.0 L (13.4-35.0) % Seg Neutrophils # Man 18.4 H (1.8-7.7) K/mm3 Lymphocytes # (Manual) 0.2 L (1.2-5.4) K/mm3 ABG pH 7.483 H (7.350-7.450) pH Units POC ABG pCO2 53.8 H (32.0-48.0) mmHg POC ABG pO2 125.5 H (83-108) mmHg ABG pO2 50.0 L (80.0-90.0) mm Hg ABG HCO3 27.0 H (20.0-26.0) mmol/L ABG O2 Saturation 86.2 L (95.0-99.0) % ABG Base Excess 3.7 H (-2.0-3.0) mmol/L ABG Sodium 131.8 L (136.0-145.0) mmol/L ABG Potassium 4.8 H (3.40-4.50) mmol/L ABG Chloride 94.0 L (98-107) mmol/L ABG Glucose 163 H (65-95) mg/dL Oxyhemoglobin 84.2 L (95.0-99.0) % Sodium (137-145) mmol/L Chloride (98-107) mmol/L BUN (9-20) mg/dL Glucose (75-100) mg/dL Magnesium (1.7-2.3) mg/dL Total Bilirubin (0.1-1.2) mg/dL AST (5-40) units/L ALT (7-56) units/L Alkaline Phosphatase (35-129) units/L Albumin (3.9-5) g/dL Arterial Blood Glucose 163 H (65-95) mg/dL Arterial Blood Ionized Calcium 4.5 L (4.6-5.3) mg/dL 05/22/20 Range/Units 07:53 WBC (4.5-11.0) K/mm3 MCV (84-94) fl MCH (28-32) pg Seg Neuts % (Manual) (40.0-70.0) % Lymphocytes % (Manual) (13.4-35.0) % Seg Neutrophils # Man (1.8-7.7) K/mm3 Lymphocytes # (Manual) (1.2-5.4) K/mm3 ABG pH (7.350-7.450) pH Units POC ABG pCO2 (32.0-48.0) mmHg POC ABG pO2 (83-108) mmHg ABG pO2 (80.0-90.0) mm Hg ABG HCO3 (20.0-26.0) mmol/L ABG O2 Saturation (95.0-99.0) % ABG Base Excess (-2.0-3.0) mmol/L ABG Sodium (136.0-145.0) mmol/L ABG Potassium (3.40-4.50) mmol/L ABG Chloride (98-107) mmol/L ABG Glucose (65-95) mg/dL Oxyhemoglobin (95.0-99.0) % Sodium 131 L (137-145) mmol/L Chloride 93.4 L (98-107) mmol/L BUN 40 H (9-20) mg/dL Glucose 176 H (75-100) mg/dL Magnesium 2.70 H (1.7-2.3) mg/dL Total Bilirubin 1.80 H (0.1-1.2) mg/dL AST 45 H (5-40) units/L ALT 116 H (7-56) units/L Alkaline Phosphatase 181 H (35-129) units/L Albumin 2.6 L (3.9-5) g/dL Arterial Blood Glucose (65-95) mg/dL Arterial Blood Ionized Calcium (4.6-5.3) mg/dL
--- NOTE | 2020-05-22 16:17 | Progress Note ---
Assessment and Plan Assessment and Plan Patient intubated last night because of persistent hypoxia --Elevated D-dimers; on full dose anticoagulation However ID requested to get CTA chest, patient is unstable to go for CT As he is requiring high flow oxygen. -- Acute hypoxemic respiratory failure; Patient intubated and on vent support --Elevated D-dimers; check CTA to rule out PE Lower extremity venous Doppler to rule out DVT Patient is already on full dose anticoagulation per COVID-19 protocol -- Novel coronavirus infection with Bilateral pneumonia Coronavirus protocol: IV steroid therapy, IV remdesivir, isolation precautions, contact precautions, prone positioning while in bed, pulmonary toilet. consulted ID --Severe sepsis, due to COVID 19 PNA cont to treat for COVID -- Acute kidney injury (SEN) , likely vasomotor nephropathy Resolved, IV fluids, avoid nephrotoxins -- Alcohol dependence; no episodes of withdrawal symptoms Thiamine, folic acid, multivitamin, CIWA protocol. -- Elevated liver function tests Suspected secondary to alcoholic liver disease. Supportive care, alcohol cessation, patient counseled. -- DVT prophylaxis prophylactic AC with lovenox for elevated D-dimer We will closely monitor patient and adjust management as needed Patient has severe Covid pneumonia, severe hypoxia Critically ill very poor prognosis Full CODE STATUS The high probability of a clinically significant, sudden or life threatening deterioration of the [Covid pneumonia, ID, respiratory, liver] system(s) required my full and direct attention, intervention and personal management. The aggregate critical care time was [32] minutes. This time is in addition to time spent performing reported procedures but includes the following: [x] Data Review and interpretation [x] Patient assessment and monitoring of vital signs [x] Documentation [x] Medication orders and management. Subjective Date of service: 05/22/20 Principal diagnosis: Ac hypoxemic resp failure; COVID-19; Severe Sepsis; Shaggy PNA; Alcohol Abuse Interval history: Brief history; 50 YO Male with Obesity, ETOH Dependence presents to ED for evaluation for shortness of breath, generalized weakness, fatigue, malaise, body aches, decreased exercise tolerance over the past 5 days. EMS was notified and upon arrival the patient was found to be in distress with a pulse oximetry of 76% on room air as well as fever to 103 F. In the ER chest x-ray and was found to have bilateral pneumonia. Patient admitted to medical floor and initiated on pneumonia protocol as well as COVID-19 protocol. Patient severe Covid pneumonia, with persistent severe hypoxemia requiring very high flow oxygen Today on continuous BiPAP, patient is in mild distress, critically ill with very poor prognosis. Patient was on high flow oxygen but could not be maintained above 90 hence patient intubated last night electively 05/17/2020; patient with severe COVID-19 pneumonia, in isolation room Patient is on high flow oxygen, and BiPAP 05/18/20; patient feels slightly better still hypoxic, requiring continuous high flow oxygen and BiPAP Respiratory team trying to wean 05/19/20; patient is severely hypoxemic requiring continuous BiPAP today, complains of generalized weakness Trying to wean off high flow oxygen, patient is in isolation 05/20/2020; patient remains on high flow oxygen/BiPAP/100% nonrebreather. Still is hypoxemic Has sinus tachycardia patient in mild distress Wean off high flow oxygen as tolerated, pulmonary critical following 05/21/20; patient is critically ill, on continuous BiPAP remains hypoxemic in mild distress Patient has severe Covid Pneumonia with persistent hypoxemia and poor prognosis 05/22/2020 Patient was intubated last night because of persistent hypoxemia Objective - Constitutional Vitals: Vital Signs - 12hr 05/22/20 05/22/20 05/22/20 04:20 04:30 04:40 Temperature Pulse Rate 111 H 110 H 109 H Pulse Rate [ From Monitor] Respiratory 19 19 20 Rate Blood Pressure 96/75 96/61 97/68 O2 Sat by Pulse 95 95 95 Oximetry 05/22/20 05/22/20 05/22/20 04:48 04:50 05:00 Temperature Pulse Rate 120 H 110 H 110 H Pulse Rate [ From Monitor] Respiratory 19 19 Rate Blood Pressure 97/72 102/67 104/65 O2 Sat by Pulse 96 94 95 Oximetry 05/22/20 05/22/20 05/22/20 05:10 05:20 05:30 Temperature Pulse Rate 108 H 111 H 107 H Pulse Rate [ From Monitor] Respiratory 17 20 20 Rate Blood Pressure 99/72 104/62 92/71 O2 Sat by Pulse 96 96 96 Oximetry 05/22/20 05/22/20 05/22/20 05:40 05:50 06:00 Temperature Pulse Rate 112 H 109 H 109 H Pulse Rate [ From Monitor] Respiratory 16 18 19 Rate Blood Pressure 105/53 102/73 103/74 O2 Sat by Pulse 94 95 95 Oximetry 05/22/20 05/22/20 05/22/20 06:10 06:20 06:30 Temperature Pulse Rate 106 H 110 H 110 H Pulse Rate [ From Monitor] Respiratory 17 15 18 Rate Blood Pressure 114/63 94/75 104/70 O2 Sat by Pulse 94 94 91 Oximetry 05/22/20 05/22/20 05/22/20 06:40 06:50 07:00 Temperature Pulse Rate 109 H 109 H 106 H Pulse Rate [ From Monitor] Respiratory 15 20 14 Rate Blood Pressure 111/73 118/75 126/71 O2 Sat by Pulse 91 91 91 Oximetry 05/22/20 05/22/20 05/22/20 07:10 07:20 07:30 Temperature Pulse Rate 105 H 108 H 109 H Pulse Rate [ From Monitor] Respiratory 16 15 16 Rate Blood Pressure 118/78 120/75 99/71 O2 Sat by Pulse 89 88 89 Oximetry 05/22/20 05/22/20 05/22/20 07:40 07:50 07:53 Temperature Pulse Rate 110 H 110 H 106 H Pulse Rate [ From Monitor] Respiratory 16 13 Rate Blood Pressure 102/75 117/72 126/71 O2 Sat by Pulse 88 91 91 Oximetry 05/22/20 05/22/20 05/22/20 08:00 08:10 08:20 Temperature 97.9 F Pulse Rate 107 H 111 H 112 H Pulse Rate [ 106 H From Monitor] Respiratory 18 21 22 Rate Blood Pressure 96/75 106/75 97/70 O2 Sat by Pulse 92 91 91 Oximetry 05/22/20 05/22/20 05/22/20 08:30 08:40 08:50 Temperature Pulse Rate 109 H 109 H 110 H Pulse Rate [ From Monitor] Respiratory 19 15 17 Rate Blood Pressure 89/65 102/73 90/70 O2 Sat by Pulse 92 92 93 Oximetry 05/22/20 05/22/20 05/22/20 09:00 09:10 09:20 Temperature Pulse Rate 106 H 104 H 107 H Pulse Rate [ From Monitor] Respiratory 22 17 22 Rate Blood Pressure 97/71 101/57 105/70 O2 Sat by Pulse 95 94 95 Oximetry 05/22/20 05/22/20 05/22/20 09:30 09:40 09:51 Temperature Pulse Rate 108 H 105 H 106 H Pulse Rate [ From Monitor] Respiratory 20 20 19 Rate Blood Pressure 100/68 102/78 115/74 O2 Sat by Pulse 95 96 97 Oximetry 05/22/20 05/22/20 05/22/20 10:00 10:10 10:20 Temperature Pulse Rate 106 H 103 H 103 H Pulse Rate [ From Monitor] Respiratory 17 19 21 Rate Blood Pressure 125/65 101/77 100/70 O2 Sat by Pulse 95 94 96 Oximetry 05/22/20 05/22/20 05/22/20 10:31 10:41 10:43 Temperature Pulse Rate 104 H 102 H 104 H Pulse Rate [ From Monitor] Respiratory 17 20 Rate Blood Pressure 86/68 98/58 O2 Sat by Pulse 94 95 Oximetry 05/22/20 05/22/20 05/22/20 10:51 11:00 11:11 Temperature Pulse Rate 106 H 105 H 105 H Pulse Rate [ From Monitor] Respiratory 21 20 20 Rate Blood Pressure 97/67 101/68 101/68 O2 Sat by Pulse 93 95 95 Oximetry 05/22/20 05/22/20 05/22/20 11:20 11:30 11:41 Temperature Pulse Rate 103 H 107 H 104 H Pulse Rate [ From Monitor] Respiratory 20 19 21 Rate Blood Pressure 93/66 98/63 93/66 O2 Sat by Pulse 94 94 94 Oximetry 05/22/20 05/22/20 05/22/20 11:51 12:00 12:03 Temperature 98.3 F Pulse Rate 105 H 105 H Pulse Rate [ 99 H From Monitor] Respiratory 20 20 Rate Blood Pressure 99/66 98/68 O2 Sat by Pulse 95 95 Oximetry 05/22/20 05/22/20 05/22/20 12:11 12:21 12:30 Temperature Pulse Rate 104 H 106 H 104 H Pulse Rate [ From Monitor] Respiratory 18 20 20 Rate Blood Pressure 98/63 102/64 118/67 O2 Sat by Pulse 94 94 93 Oximetry 05/22/20 05/22/20 05/22/20 12:41 12:45 12:51 Temperature Pulse Rate 107 H 106 H 107 H Pulse Rate [ From Monitor] Respiratory 21 22 Rate Blood Pressure 118/67 102/64 98/66 O2 Sat by Pulse 93 94 90 Oximetry 05/22/20 05/22/20 05/22/20 13:00 13:11 13:21 Temperature Pulse Rate 100 H 106 H 106 H Pulse Rate [ From Monitor] Respiratory 20 15 20 Rate Blood Pressure 97/73 97/73 91/67 O2 Sat by Pulse 92 91 93 Oximetry 05/22/20 05/22/20 05/22/20 13:30 13:41 13:51 Temperature Pulse Rate 106 H 107 H 101 H Pulse Rate [ From Monitor] Respiratory 20 21 17 Rate Blood Pressure 90/67 90/67 90/66 O2 Sat by Pulse 92 93 93 Oximetry 05/22/20 05/22/20 05/22/20 14:00 14:11 14:21 Temperature Pulse Rate 107 H 108 H 105 H Pulse Rate [ From Monitor] Respiratory 20 20 20 Rate Blood Pressure 103/67 103/67 111/58 O2 Sat by Pulse 94 94 94 Oximetry 05/22/20 05/22/20 05/22/20 14:30 14:41 14:51 Temperature Pulse Rate 109 H 105 H 105 H Pulse Rate [ From Monitor] Respiratory 22 19 21 Rate Blood Pressure 109/61 109/61 96/63 O2 Sat by Pulse 93 92 92 Oximetry 05/22/20 05/22/20 15:00 15:54 Temperature Pulse Rate 104 H 104 H Pulse Rate [ From Monitor] Respiratory 21 Rate Blood Pressure 101/59 101/59 O2 Sat by Pulse 93 93 Oximetry General appearance: Present: mild distress, well-nourished - EENT Eyes: PERRL, EOM intact ENT: hearing intact, clear oral mucosa Ears: bilateral: normal - Neck Neck: supple, normal ROM - Respiratory Respiratory effort: normal Respiratory: bilateral: CTA - Breasts Breasts: normal - Cardiovascular Rhythm: regular Heart Sounds: Present: S1 & S2. Absent: gallop, rub Extremities: pulses intact, No edema, normal color, Full ROM - Gastrointestinal General gastrointestinal: Present: soft, non-tender, non-distended, normal bowel sounds - Genitourinary Male genitourinary: normal - Integumentary Integumentary: clear, warm, dry - Musculoskeletal Musculoskeletal: 1, strength equal bilaterally - Neurologic Neurologic: moves all extremities - Psychiatric Psychiatric: memory intact, appropriate mood/affect, intact judgment & insight - Labs CBC & Chem 7: 05/22/20 07:53 05/22/20 07:53 Labs: Abnormal lab results 05/21/20 05/22/20 05/22/20 Range/Units 21:10 04:01 07:53 WBC 19.2 H (4.5-11.0) K/mm3 MCV 98 H (84-94) fl MCH 34 H (28-32) pg Seg Neuts % (Manual) 96.0 H (40.0-70.0) % Lymphocytes % (Manual) 1.0 L (13.4-35.0) % Seg Neutrophils # Man 18.4 H (1.8-7.7) K/mm3 Lymphocytes # (Manual) 0.2 L (1.2-5.4) K/mm3 ABG pH 7.483 H (7.350-7.450) pH Units POC ABG pCO2 53.8 H (32.0-48.0) mmHg POC ABG pO2 125.5 H (83-108) mmHg ABG pO2 50.0 L (80.0-90.0) mm Hg ABG HCO3 27.0 H (20.0-26.0) mmol/L ABG O2 Saturation 86.2 L (95.0-99.0) % ABG Base Excess 3.7 H (-2.0-3.0) mmol/L ABG Sodium 131.8 L (136.0-145.0) mmol/L ABG Potassium 4.8 H (3.40-4.50) mmol/L ABG Chloride 94.0 L (98-107) mmol/L ABG Glucose 163 H (65-95) mg/dL Oxyhemoglobin 84.2 L (95.0-99.0) % Sodium (137-145) mmol/L Chloride (98-107) mmol/L BUN (9-20) mg/dL Glucose (75-100) mg/dL Magnesium (1.7-2.3) mg/dL Total Bilirubin (0.1-1.2) mg/dL AST (5-40) units/L ALT (7-56) units/L Alkaline Phosphatase (35-129) units/L Albumin (3.9-5) g/dL Arterial Blood Glucose 163 H (65-95) mg/dL Arterial Blood Ionized Calcium 4.5 L (4.6-5.3) mg/dL 05/22/20 Range/Units 07:53 WBC (4.5-11.0) K/mm3 MCV (84-94) fl MCH (28-32) pg Seg Neuts % (Manual) (40.0-70.0) % Lymphocytes % (Manual) (13.4-35.0) % Seg Neutrophils # Man (1.8-7.7) K/mm3 Lymphocytes # (Manual) (1.2-5.4) K/mm3 ABG pH (7.350-7.450) pH Units POC ABG pCO2 (32.0-48.0) mmHg POC ABG pO2 (83-108) mmHg ABG pO2 (80.0-90.0) mm Hg ABG HCO3 (20.0-26.0) mmol/L ABG O2 Saturation (95.0-99.0) % ABG Base Excess (-2.0-3.0) mmol/L ABG Sodium (136.0-145.0) mmol/L ABG Potassium (3.40-4.50) mmol/L ABG Chloride (98-107) mmol/L ABG Glucose (65-95) mg/dL Oxyhemoglobin (95.0-99.0) % Sodium 131 L (137-145) mmol/L Chloride 93.4 L (98-107) mmol/L BUN 40 H (9-20) mg/dL Glucose 176 H (75-100) mg/dL Magnesium 2.70 H (1.7-2.3) mg/dL Total Bilirubin 1.80 H (0.1-1.2) mg/dL AST 45 H (5-40) units/L ALT 116 H (7-56) units/L Alkaline Phosphatase 181 H (35-129) units/L Albumin 2.6 L (3.9-5) g/dL Arterial Blood Glucose (65-95) mg/dL Arterial Blood Ionized Calcium (4.6-5.3) mg/dL
--- NOTE | 2020-05-22 16:50 | Progress Note ---
Assessment and Plan Acute hypoxemic respiratory failure due to COVID-19 Severe Sepsis Bilateral pneumonia Acute kidney injury (SEN) with acute tubular necrosis (ATN) Alcohol dependence Elevated liver function tests - Begin IVNS @ 75 ml's/hr X 2 liters for pre-renal azotemia - follow I's & O's - RT asked to advance ETT 2 cm - increased peep to 16 but dropped FiO2 to 90% - continue to wean supplemental oxygen for target O2 sat's > 92% acutely - continue Daily SAT and SBT assessment as tolerated - VAP bundle addressed - continue lung protective strategies - continue bronchodilators with pulmonary hygiene per RT - wean per pulmonary driven protocols otherwise - accuchecks with glycemic control per SSI (While critically ill target blood g lucose of 140-180 mg/dL; avoid hypoglycemia) - sedation prn for target RASS -1 to -2 - continue enteral nutritional support at goal rate as tolerated - continue airborne and contact isolation - follow repeat COVID-19 testing - continue Zinc & Vit C supplementaion - continue systemic steroids for Asthma / severe COVID infection - Prone positioning as tolerated - continue empiric full dose anticoagulation re: elevated d-dimers / hypercoagulable state - NOT a candidate for COVID convalescent plasma - continue systemic steroids X >/= 10 days - complete remdesivir dosing (total 5 days) - Monitor liver function test on Remdesivir - trend inflammatory markers - ferritin, Ddimer, CRP, LDH; to aid clinical decision making - empiric AB's coverage per ID rec's otherwise - accuchecks with glycemic control per SSI (While critically ill target blood glucose of 140-180 mg/dL; avoid hypoglycemia) - avoid nephrotoxins, renally dose all medications - continue to avoid benzodiazepine's, reduce the possibility of delirium - prn analgesia per CPOT score - Maintenance of sleep-wake cycle, avoid delirium - continue to avoid benzodiazepine's, reduce the possibility of delirium - aspiration precautions - G.I. & VTE prophylaxis - PT/OT/ROM exercises - continue mobility protocols for pressure ulcer prophylaxis - Monitor hemodynamics closely - continue other care per attending / other consultants - discharge planning ongoing concurrently .... Re-evaluate in am & prn CONDITION: CRITICAL PROGNOSIS: GUARDED CODE STATUS: FULL CODE The high probability of a clinically significant, sudden or life-threatening deterioration of the [respiratory, cardiovascular, hematologic & neurologic] system(s) required my full and direct attention, intervention and personal management. The aggregate critical care time was [34] minutes without overlap. Time includes spent on; [x] Data Review and interpretation [x] Patient assessment and monitoring of vital signs [x] Documentation [x] Medication orders and management Subjective Date of service: 05/22/20 Principal diagnosis: Ac hypoxemic resp failure; COVID-19; Severe Sepsis; Shaggy PNA; Alcohol Abuse Interval history: Patient is seen today for: Acute hypoxemic respiratory failure due to COVID-19; Severe Sepsis; Bilateral pneumonia; Alcohol dependence; Elevated liver function tests Seen and examined at bedside; 24hour events reviewed; nursing and respiratory care staff consulted; no adverse overnight events reported to me; resting in bed; remains on MVS; BP's have been soft today per RN; also with low urine output; no emesis or overt aspiration; FiO2 at 100% with peep at 14 cm H2O Objective Vital Signs - 12hr 05/22/20 05/22/20 05/22/20 04:50 05:00 05:10 Temperature Pulse Rate 110 H 110 H 108 H Pulse Rate [ From Monitor] Respiratory 19 19 17 Rate Blood Pressure 102/67 104/65 99/72 O2 Sat by Pulse 94 95 96 Oximetry 05/22/20 05/22/20 05/22/20 05:20 05:30 05:40 Temperature Pulse Rate 111 H 107 H 112 H Pulse Rate [ From Monitor] Respiratory 20 20 16 Rate Blood Pressure 104/62 92/71 105/53 O2 Sat by Pulse 96 96 94 Oximetry 05/22/20 05/22/20 05/22/20 05:50 06:00 06:10 Temperature Pulse Rate 109 H 109 H 106 H Pulse Rate [ From Monitor] Respiratory 18 19 17 Rate Blood Pressure 102/73 103/74 114/63 O2 Sat by Pulse 95 95 94 Oximetry 05/22/20 05/22/20 05/22/20 06:20 06:30 06:40 Temperature Pulse Rate 110 H 110 H 109 H Pulse Rate [ From Monitor] Respiratory 15 18 15 Rate Blood Pressure 94/75 104/70 111/73 O2 Sat by Pulse 94 91 91 Oximetry 05/22/20 05/22/20 05/22/20 06:50 07:00 07:10 Temperature Pulse Rate 109 H 106 H 105 H Pulse Rate [ From Monitor] Respiratory 20 14 16 Rate Blood Pressure 118/75 126/71 118/78 O2 Sat by Pulse 91 91 89 Oximetry 05/22/20 05/22/20 05/22/20 07:20 07:30 07:40 Temperature Pulse Rate 108 H 109 H 110 H Pulse Rate [ From Monitor] Respiratory 15 16 16 Rate Blood Pressure 120/75 99/71 102/75 O2 Sat by Pulse 88 89 88 Oximetry 05/22/20 05/22/20 05/22/20 07:50 07:53 08:00 Temperature 97.9 F Pulse Rate 110 H 106 H 107 H Pulse Rate [ 106 H From Monitor] Respiratory 13 18 Rate Blood Pressure 117/72 126/71 96/75 O2 Sat by Pulse 91 91 92 Oximetry 05/22/20 05/22/20 05/22/20 08:10 08:20 08:30 Temperature Pulse Rate 111 H 112 H 109 H Pulse Rate [ From Monitor] Respiratory 21 22 19 Rate Blood Pressure 106/75 97/70 89/65 O2 Sat by Pulse 91 91 92 Oximetry 05/22/20 05/22/20 05/22/20 08:40 08:50 09:00 Temperature Pulse Rate 109 H 110 H 106 H Pulse Rate [ From Monitor] Respiratory 15 17 22 Rate Blood Pressure 102/73 90/70 97/71 O2 Sat by Pulse 92 93 95 Oximetry 05/22/20 05/22/20 05/22/20 09:10 09:20 09:30 Temperature Pulse Rate 104 H 107 H 108 H Pulse Rate [ From Monitor] Respiratory 17 22 20 Rate Blood Pressure 101/57 105/70 100/68 O2 Sat by Pulse 94 95 95 Oximetry 05/22/20 05/22/20 05/22/20 09:40 09:51 10:00 Temperature Pulse Rate 105 H 106 H 106 H Pulse Rate [ From Monitor] Respiratory 20 19 17 Rate Blood Pressure 102/78 115/74 125/65 O2 Sat by Pulse 96 97 95 Oximetry 05/22/20 05/22/20 05/22/20 10:10 10:20 10:31 Temperature Pulse Rate 103 H 103 H 104 H Pulse Rate [ From Monitor] Respiratory 19 21 17 Rate Blood Pressure 101/77 100/70 86/68 O2 Sat by Pulse 94 96 94 Oximetry 05/22/20 05/22/20 05/22/20 10:41 10:43 10:51 Temperature Pulse Rate 102 H 104 H 106 H Pulse Rate [ From Monitor] Respiratory 20 21 Rate Blood Pressure 98/58 97/67 O2 Sat by Pulse 95 93 Oximetry 05/22/20 05/22/20 05/22/20 11:00 11:11 11:20 Temperature Pulse Rate 105 H 105 H 103 H Pulse Rate [ From Monitor] Respiratory 20 20 20 Rate Blood Pressure 101/68 101/68 93/66 O2 Sat by Pulse 95 95 94 Oximetry 05/22/20 05/22/20 05/22/20 11:30 11:41 11:51 Temperature Pulse Rate 107 H 104 H 105 H Pulse Rate [ From Monitor] Respiratory 19 21 20 Rate Blood Pressure 98/63 93/66 99/66 O2 Sat by Pulse 94 94 95 Oximetry 05/22/20 05/22/20 05/22/20 12:00 12:03 12:11 Temperature 98.3 F Pulse Rate 105 H 104 H Pulse Rate [ 99 H From Monitor] Respiratory 20 18 Rate Blood Pressure 98/68 98/63 O2 Sat by Pulse 95 94 Oximetry 05/22/20 05/22/20 05/22/20 12:21 12:30 12:41 Temperature Pulse Rate 106 H 104 H 107 H Pulse Rate [ From Monitor] Respiratory 20 20 21 Rate Blood Pressure 102/64 118/67 118/67 O2 Sat by Pulse 94 93 93 Oximetry 05/22/20 05/22/20 05/22/20 12:45 12:51 13:00 Temperature Pulse Rate 106 H 107 H 100 H Pulse Rate [ From Monitor] Respiratory 22 20 Rate Blood Pressure 102/64 98/66 97/73 O2 Sat by Pulse 94 90 92 Oximetry 05/22/20 05/22/20 05/22/20 13:11 13:21 13:30 Temperature Pulse Rate 106 H 106 H 106 H Pulse Rate [ From Monitor] Respiratory 15 20 20 Rate Blood Pressure 97/73 91/67 90/67 O2 Sat by Pulse 91 93 92 Oximetry 05/22/20 05/22/20 05/22/20 13:41 13:51 14:00 Temperature Pulse Rate 107 H 101 H 107 H Pulse Rate [ From Monitor] Respiratory 21 17 20 Rate Blood Pressure 90/67 90/66 103/67 O2 Sat by Pulse 93 93 94 Oximetry 05/22/20 05/22/20 05/22/20 14:11 14:21 14:30 Temperature Pulse Rate 108 H 105 H 109 H Pulse Rate [ From Monitor] Respiratory 20 20 22 Rate Blood Pressure 103/67 111/58 109/61 O2 Sat by Pulse 94 94 93 Oximetry 05/22/20 05/22/20 05/22/20 14:41 14:51 15:00 Temperature Pulse Rate 105 H 105 H 104 H Pulse Rate [ From Monitor] Respiratory 19 21 21 Rate Blood Pressure 109/61 96/63 101/59 O2 Sat by Pulse 92 92 93 Oximetry 05/22/20 05/22/20 05/22/20 15:11 15:21 15:30 Temperature Pulse Rate 104 H 106 H 103 H Pulse Rate [ From Monitor] Respiratory 20 21 21 Rate Blood Pressure 101/59 95/66 102/64 O2 Sat by Pulse 93 94 93 Oximetry 05/22/20 05/22/20 05/22/20 15:41 15:51 15:54 Temperature Pulse Rate 108 H 104 H 104 H Pulse Rate [ From Monitor] Respiratory 22 16 Rate Blood Pressure 102/64 111/62 101/59 O2 Sat by Pulse 93 93 93 Oximetry 05/22/20 05/22/20 05/22/20 16:00 16:10 16:21 Temperature 98.4 F Pulse Rate 106 H 102 H 107 H Pulse Rate [ 107 H From Monitor] Respiratory 20 21 20 Rate Blood Pressure 111/62 108/67 O2 Sat by Pulse 94 95 95 Oximetry Constitutional: no acute distress, asleep, other (middle aged obese male without significant ventilator dyssynchrony) Eyes: non-icteric ENT: oropharynx moist, other (ETT 243-24 cm CHILO) Neck: supple, no JVD Effort: normal, mildly labored Ascultation: Bilateral: diminished breath sounds, rhonchi Percussion: Bilateral: not dull Cardiovascular: regular rate and rhythm Gastrointestinal: normoactive bowel sounds, soft, non-tender, non-distended ( protuberant) Integumentary: normal Extremities: no cyanosis, no edema, pulses normal, no ischemia or petechiae Neurologic: non-focal exam, pupils equal and round, CN II-XII normal, motor strength normal and, other (sedated) Psychiatric: other (sedated) CBC and BMP: 05/22/20 07:53 05/22/20 07:53 ABG, PT/INR, D-dimer: ABG ABG pH 7.372 (7.320-7.450) 05/22/20 04:01 POC ABG pCO2 53.8 mmHg (32.0-48.0) H 05/22/20 04:01 ABG pCO2 36.8 mm Hg 05/21/20 21:10 POC ABG pO2 125.5 mmHg (83-108) H 05/22/20 04:01 ABG pO2 50.0 mm Hg (80.0-90.0) L 05/21/20 21:10 POC ABG HCO3 30.5 05/22/20 04:01 ABG O2 Saturation 86.2 % (95.0-99.0) L 05/21/20 21:10 PT/INR, D-dimer D-Dimer 1887.82 ng/mlDDU (0-234) H 05/20/20 08:16 Abnormal lab findings: Abnormal Labs 05/09/20 05/09/20 05/09/20 12:59 12:59 12:59 WBC 11.8 H MCV 96 H MCH 34 H MCHC 35 H RDW Lymph % (Auto) 6.9 L Lymph # (Auto) 0.8 L Seg Neutrophils % 87.5 H Seg Neuts % (Manual) Lymphocytes % (Manual) Seg Neutrophils # 10.3 H Seg Neutrophils # Man Lymphocytes # (Manual) D-Dimer ABG pH POC ABG pCO2 POC ABG pO2 ABG pO2 ABG HCO3 ABG O2 Saturation ABG Base Excess ABG Oxyhemoglobin ABG Sodium ABG Potassium ABG Chloride ABG Glucose Oxyhemoglobin Sodium 130 L Potassium 3.5 L Chloride 86.4 L Carbon Dioxide BUN 33 H Creatinine 2.3 H Glucose 156 H POC Glucose Lactic Acid Calcium Magnesium Ferritin Total Bilirubin 3.40 H Direct Bilirubin 1.7 H AST 385 H ALT 134 H Alkaline Phosphatase Lactate Dehydrogenase C-Reactive Protein Total Protein Albumin 3.0 L Arterial Blood Glucose Arterial Blood Ionized Calcium Urine WBC (Auto) Coronavirus (PCR) SARS-CoV-2 IgG Ab 05/09/20 05/09/20 05/09/20 12:59 12:59 12:59 WBC MCV MCH MCHC RDW Lymph % (Auto) Lymph # (Auto) Seg Neutrophils % Seg Neuts % (Manual) Lymphocytes % (Manual) Seg Neutrophils # Seg Neutrophils # Man Lymphocytes # (Manual) D-Dimer 3242.51 H ABG pH POC ABG pCO2 POC ABG pO2 ABG pO2 ABG HCO3 ABG O2 Saturation ABG Base Excess ABG Oxyhemoglobin ABG Sodium ABG Potassium ABG Chloride ABG Glucose Oxyhemoglobin Sodium Potassium Chloride Carbon Dioxide BUN Creatinine Glucose 158 H POC Glucose Lactic Acid 3.50 H* Calcium Magnesium Ferritin Total Bilirubin Direct Bilirubin AST ALT Alkaline Phosphatase Lactate Dehydrogenase 2166 H C-Reactive Protein 39.00 H Total Protein Albumin Arterial Blood Glucose Arterial Blood Ionized Calcium Urine WBC (Auto) Coronavirus (PCR) SARS-CoV-2 IgG Ab 05/09/20 05/09/20 05/09/20 12:59 14:20 14:20 WBC MCV MCH MCHC RDW Lymph % (Auto) Lymph # (Auto) Seg Neutrophils % Seg Neuts % (Manual) Lymphocytes % (Manual) Seg Neutrophils # Seg Neutrophils # Man Lymphocytes # (Manual) D-Dimer 2861.78 H ABG pH POC ABG pCO2 POC ABG pO2 ABG pO2 ABG HCO3 ABG O2 Saturation ABG Base Excess ABG Oxyhemoglobin ABG Sodium ABG Potassium ABG Chloride ABG Glucose Oxyhemoglobin Sodium Potassium Chloride Carbon Dioxide BUN Creatinine Glucose POC Glucose Lactic Acid 2.20 H* Calcium Magnesium Ferritin 04475.0 H Total Bilirubin Direct Bilirubin AST ALT Alkaline Phosphatase Lactate Dehydrogenase C-Reactive Protein Total Protein Albumin Arterial Blood Glucose Arterial Blood Ionized Calcium Urine WBC (Auto) Coronavirus (PCR) SARS-CoV-2 IgG Ab 05/09/20 05/09/20 05/09/20 14:20 14:20 15:56 WBC MCV MCH MCHC RDW Lymph % (Auto) Lymph # (Auto) Seg Neutrophils % Seg Neuts % (Manual) Lymphocytes % (Manual) Seg Neutrophils # Seg Neutrophils # Man Lymphocytes # (Manual) D-Dimer ABG pH POC ABG pCO2 POC ABG pO2 57.3 L ABG pO2 ABG HCO3 ABG O2 Saturation ABG Base Excess ABG Oxyhemoglobin 86.3 L ABG Sodium 129.9 L ABG Potassium ABG Chloride ABG Glucose 146 H Oxyhemoglobin Sodium Potassium Chloride Carbon Dioxide BUN Creatinine Glucose 143 H POC Glucose Lactic Acid Calcium Magnesium Ferritin 95343.0 H Total Bilirubin Direct Bilirubin AST ALT Alkaline Phosphatase Lactate Dehydrogenase 1953 H C-Reactive Protein 33.50 H Total Protein Albumin Arterial Blood Glucose 146 H Arterial Blood Ionized Calcium 3.9 L Urine WBC (Auto) Coronavirus (PCR) SARS-CoV-2 IgG Ab 05/10/20 05/10/20 05/10/20 10:32 10:32 18:50 WBC 15.4 H MCV 97 H MCH 33 H MCHC RDW 13.1 L Lymph % (Auto) Lymph # (Auto) Seg Neutrophils % Seg Neuts % (Manual) 89.0 H Lymphocytes % (Manual) 8.0 L Seg Neutrophils # Seg Neutrophils # Man 13.7 H Lymphocytes # (Manual) D-Dimer ABG pH POC ABG pCO2 POC ABG pO2 ABG pO2 ABG HCO3 ABG O2 Saturation ABG Base Excess ABG Oxyhemoglobin ABG Sodium ABG Potassium ABG Chloride ABG Glucose Oxyhemoglobin Sodium 136 L Potassium Chloride 97.4 L Carbon Dioxide BUN 37 H Creatinine 1.7 H Glucose 209 H POC Glucose Lactic Acid Calcium Magnesium Ferritin > 2000.0 H Total Bilirubin Direct Bilirubin AST ALT Alkaline Phosphatase Lactate Dehydrogenase C-Reactive Protein Total Protein Albumin Arterial Blood Glucose Arterial Blood Ionized Calcium Urine WBC (Auto) Coronavirus (PCR) SARS-CoV-2 IgG Ab 05/10/20 05/10/20 05/10/20 18:50 19:00 Unknown WBC MCV MCH MCHC RDW Lymph % (Auto) Lymph # (Auto) Seg Neutrophils % Seg Neuts % (Manual) Lymphocytes % (Manual) Seg Neutrophils # Seg Neutrophils # Man Lymphocytes # (Manual) D-Dimer > 91926 H ABG pH POC ABG pCO2 POC ABG pO2 ABG pO2 ABG HCO3 ABG O2 Saturation ABG Base Excess ABG Oxyhemoglobin ABG Sodium ABG Potassium ABG Chloride ABG Glucose Oxyhemoglobin Sodium Potassium Chloride Carbon Dioxide BUN Creatinine Glucose POC Glucose Lactic Acid Calcium Magnesium Ferritin Total Bilirubin Direct Bilirubin AST ALT Alkaline Phosphatase Lactate Dehydrogenase 1879 H C-Reactive Protein 24.80 H Total Protein Albumin Arterial Blood Glucose Arterial Blood Ionized Calcium Urine WBC (Auto) 11.0 H Coronavirus (PCR) SARS-CoV-2 IgG Ab 05/10/20 05/11/20 05/11/20 Unknown 07:30 07:30 WBC MCV MCH MCHC RDW Lymph % (Auto) Lymph # (Auto) Seg Neutrophils % Seg Neuts % (Manual) Lymphocytes % (Manual) Seg Neutrophils # Seg Neutrophils # Man Lymphocytes # (Manual) D-Dimer > 2000 H ABG pH POC ABG pCO2 POC ABG pO2 ABG pO2 ABG HCO3 ABG O2 Saturation ABG Base Excess ABG Oxyhemoglobin ABG Sodium ABG Potassium ABG Chloride ABG Glucose Oxyhemoglobin Sodium Potassium Chloride 96.3 L Carbon Dioxide BUN 36 H Creatinine Glucose 161 H POC Glucose Lactic Acid Calcium 8.3 L Magnesium Ferritin Total Bilirubin 1.50 H Direct Bilirubin 0.6 H AST 178 H ALT 111 H Alkaline Phosphatase Lactate Dehydrogenase C-Reactive Protein Total Protein Albumin 3.0 L Arterial Blood Glucose Arterial Blood Ionized Calcium Urine WBC (Auto) Coronavirus (PCR) Positive A SARS-CoV-2 IgG Ab 05/11/20 05/11/20 05/11/20 07:30 07:30 07:30 WBC MCV MCH MCHC RDW Lymph % (Auto) Lymph # (Auto) Seg Neutrophils % Seg Neuts % (Manual) Lymphocytes % (Manual) Seg Neutrophils # Seg Neutrophils # Man Lymphocytes # (Manual) D-Dimer ABG pH POC ABG pCO2 POC ABG pO2 ABG pO2 ABG HCO3 ABG O2 Saturation ABG Base Excess ABG Oxyhemoglobin ABG Sodium ABG Potassium ABG Chloride ABG Glucose Oxyhemoglobin Sodium Potassium Chloride Carbon Dioxide BUN Creatinine Glucose POC Glucose Lactic Acid Calcium Magnesium Ferritin 17063.0 H Total Bilirubin Direct Bilirubin AST ALT Alkaline Phosphatase Lactate Dehydrogenase 1523 H C-Reactive Protein 12.90 H Total Protein Albumin Arterial Blood Glucose Arterial Blood Ionized Calcium Urine WBC (Auto) Coronavirus (PCR) SARS-CoV-2 IgG Ab Reactive A 05/13/20 05/13/20 05/15/20 05:20 05:20 08:15 WBC MCV MCH MCHC RDW Lymph % (Auto) Lymph # (Auto) Seg Neutrophils % Seg Neuts % (Manual) Lymphocytes % (Manual) Seg Neutrophils # Seg Neutrophils # Man Lymphocytes # (Manual) D-Dimer > 74707 H 5318.28 H ABG pH POC ABG pCO2 POC ABG pO2 ABG pO2 ABG HCO3 ABG O2 Saturation ABG Base Excess ABG Oxyhemoglobin ABG Sodium ABG Potassium ABG Chloride ABG Glucose Oxyhemoglobin Sodium Potassium Chloride Carbon Dioxide 32 H BUN 30 H Creatinine Glucose 156 H POC Glucose Lactic Acid Calcium Magnesium 2.60 H Ferritin Total Bilirubin 1.40 H Direct Bilirubin AST 121 H ALT 119 H Alkaline Phosphatase Lactate Dehydrogenase 957 H C-Reactive Protein 4.00 H Total Protein Albumin 3.0 L Arterial Blood Glucose Arterial Blood Ionized Calcium Urine WBC (Auto) Coronavirus (PCR) SARS-CoV-2 IgG Ab 05/15/20 05/15/20 05/15/20 08:15 08:15 08:15 WBC 12.4 H MCV 98 H MCH 33 H MCHC RDW Lymph % (Auto) 9.7 L Lymph # (Auto) Seg Neutrophils % 86.8 H Seg Neuts % (Manual) Lymphocytes % (Manual) Seg Neutrophils # 10.8 H Seg Neutrophils # Man Lymphocytes # (Manual) D-Dimer ABG pH POC ABG pCO2 POC ABG pO2 ABG pO2 ABG HCO3 ABG O2 Saturation ABG Base Excess ABG Oxyhemoglobin ABG Sodium ABG Potassium ABG Chloride ABG Glucose Oxyhemoglobin Sodium Potassium Chloride 94.8 L Carbon Dioxide 32 H BUN 22 H Creatinine Glucose 115 H POC Glucose Lactic Acid Calcium 8.3 L Magnesium Ferritin 2494.0 H Total Bilirubin Direct Bilirubin AST 73 H ALT 121 H Alkaline Phosphatase Lactate Dehydrogenase 835 H C-Reactive Protein 3.40 H Total Protein 6.1 L Albumin 3.0 L Arterial Blood Glucose Arterial Blood Ionized Calcium Urine WBC (Auto) Coronavirus (PCR) SARS-CoV-2 IgG Ab 05/17/20 05/17/20 05/17/20 05:50 05:50 05:50 WBC MCV MCH MCHC RDW Lymph % (Auto) Lymph # (Auto) Seg Neutrophils % Seg Neuts % (Manual) Lymphocytes % (Manual) Seg Neutrophils # Seg Neutrophils # Man Lymphocytes # (Manual) D-Dimer 2911.42 H ABG pH POC ABG pCO2 POC ABG pO2 ABG pO2 ABG HCO3 ABG O2 Saturation ABG Base Excess ABG Oxyhemoglobin ABG Sodium ABG Potassium ABG Chloride ABG Glucose Oxyhemoglobin Sodium 136 L Potassium Chloride 96.0 L Carbon Dioxide 34 H BUN 22 H Creatinine Glucose 140 H POC Glucose Lactic Acid Calcium Magnesium Ferritin 2082.0 H Total Bilirubin Direct Bilirubin AST ALT 75 H Alkaline Phosphatase Lactate Dehydrogenase 601 H C-Reactive Protein 2.70 H Total Protein Albumin 2.9 L Arterial Blood Glucose Arterial Blood Ionized Calcium Urine WBC (Auto) Coronavirus (PCR) SARS-CoV-2 IgG Ab 05/17/20 05/18/20 05/20/20 05:50 12:22 08:16 WBC MCV 98 H MCH 33 H MCHC RDW Lymph % (Auto) 8.0 L Lymph # (Auto) 0.8 L Seg Neutrophils % 89.3 H Seg Neuts % (Manual) Lymphocytes % (Manual) Seg Neutrophils # 8.8 H Seg Neutrophils # Man Lymphocytes # (Manual) D-Dimer 1887.82 H ABG pH POC ABG pCO2 POC ABG pO2 ABG pO2 ABG HCO3 ABG O2 Saturation ABG Base Excess ABG Oxyhemoglobin ABG Sodium ABG Potassium ABG Chloride ABG Glucose Oxyhemoglobin Sodium Potassium Chloride Carbon Dioxide BUN Creatinine Glucose POC Glucose 178 H Lactic Acid Calcium Magnesium Ferritin Total Bilirubin Direct Bilirubin AST ALT Alkaline Phosphatase Lactate Dehydrogenase C-Reactive Protein Total Protein Albumin Arterial Blood Glucose Arterial Blood Ionized Calcium Urine WBC (Auto) Coronavirus (PCR) SARS-CoV-2 IgG Ab 05/20/20 05/20/20 05/21/20 08:16 08:16 21:10 WBC MCV MCH MCHC RDW Lymph % (Auto) Lymph # (Auto) Seg Neutrophils % Seg Neuts % (Manual) Lymphocytes % (Manual) Seg Neutrophils # Seg Neutrophils # Man Lymphocytes # (Manual) D-Dimer ABG pH 7.483 H POC ABG pCO2 POC ABG pO2 ABG pO2 50.0 L ABG HCO3 27.0 H ABG O2 Saturation 86.2 L ABG Base Excess 3.7 H ABG Oxyhemoglobin ABG Sodium ABG Potassium ABG Chloride ABG Glucose Oxyhemoglobin 84.2 L Sodium Potassium Chloride Carbon Dioxide BUN Creatinine Glucose POC Glucose Lactic Acid Calcium Magnesium Ferritin 1960.0 H Total Bilirubin Direct Bilirubin AST ALT Alkaline Phosphatase Lactate Dehydrogenase 705 H C-Reactive Protein 3.10 H Total Protein Albumin Arterial Blood Glucose Arterial Blood Ionized Calcium Urine WBC (Auto) Coronavirus (PCR) SARS-CoV-2 IgG Ab 05/22/20 05/22/20 05/22/20 04:01 07:53 07:53 WBC 19.2 H MCV 98 H MCH 34 H MCHC RDW Lymph % (Auto) Lymph # (Auto) Seg Neutrophils % Seg Neuts % (Manual) 96.0 H Lymphocytes % (Manual) 1.0 L Seg Neutrophils # Seg Neutrophils # Man 18.4 H Lymphocytes # (Manual) 0.2 L D-Dimer ABG pH POC ABG pCO2 53.8 H POC ABG pO2 125.5 H ABG pO2 ABG HCO3 ABG O2 Saturation ABG Base Excess ABG Oxyhemoglobin ABG Sodium 131.8 L ABG Potassium 4.8 H ABG Chloride 94.0 L ABG Glucose 163 H Oxyhemoglobin Sodium 131 L Potassium Chloride 93.4 L Carbon Dioxide BUN 40 H Creatinine Glucose 176 H POC Glucose Lactic Acid Calcium Magnesium 2.70 H Ferritin Total Bilirubin 1.80 H Direct Bilirubin AST 45 H ALT 116 H Alkaline Phosphatase 181 H Lactate Dehydrogenase C-Reactive Protein Total Protein Albumin 2.6 L Arterial Blood Glucose 163 H Arterial Blood Ionized Calcium 4.5 L Urine WBC (Auto) Coronavirus (PCR) SARS-CoV-2 IgG Ab Chest x-ray: image reviewed (ETT riding high otherwise stable bilateral alveolar type infiltrates) Allied health notes reviewed: nursing
[2020-05-22] MEDS: SODIUM CHLORIDE 0.9% 1000 ML 1,000 ML IV SCH (18:47)
[2020-05-23] MEDS: fentaNYL DRIP Premix 2,000 MCG/100 ML BAG IV SCH ×3 (01:59→18:13)
[2020-05-23] MEDS: ENOXAPARIN 120 MG/0.8 ML INJ SUB-Q SCH ×3 (02:00→21:33)
[2020-05-23] MEDS: METOPROLOL TARTRATE 25 MG TAB PO SCH ×3 (02:01→22:17)
--- NOTE | 2020-05-23 04:34 | XRay Report ---
CHEST 1 VIEW 05/23/2020 3:23 AM INDICATION / CLINICAL INFORMATION: follow up respiratory failure. COMPARISON: 05/22/2020 FINDINGS: SUPPORT DEVICES: Stable, satisfactory device positioning. HEART / MEDIASTINUM: Stable. LUNGS / PLEURA: Mildly improved patchy bilateral pulmonary opacities. No pneumothorax. ADDITIONAL FINDINGS: No significant additional findings. IMPRESSION: 1. Mild improvement. Signer Name: Lance Lynch MD Signed: 05/23/2020 4:29 AM Workstation Name: [id number]
[2020-05-23 04:49] LABS: ABG Base Excess 3.5 mmol/L (-2.0-3.0); ABG Methemoglobin 0.6 % (0.0-1.5); ABG Oxygen Saturation 93.5 % (95.0-99.0); ABG PCO2 60.5 mm Hg; ABG PH 7.328 pH Units (7.350-7.450); ABG PO2 72.8 mm Hg (80.0-90.0)
[2020-05-23] MEDS: SODIUM CHLORIDE 0.9% 1000 ML 1,000 ML IV SCH (10:28)
[2020-05-23] MEDS: methylPREDNISolone Sod Succinate 40 MG/1 ML INJ IV SCH ×2 (10:32→18:13)
[2020-05-23] MEDS: FOLIC ACID 1 MG TAB PO SCH (10:40)
--- NOTE | 2020-05-23 16:40 | Progress Note ---
Assessment and Plan Acute hypoxemic respiratory failure due to COVID-19 Severe Sepsis Bilateral pneumonia Acute kidney injury (SEN) with acute tubular necrosis (ATN) Alcohol dependence Elevated liver function tests - complete IVNS @ 75 ml's/hr X 2 liters for pre-renal azotemia - repeat BMP in am - keep peep at 16 - continue care as below otherwise; - continue to wean supplemental oxygen for target O2 sat's > 92% acutely - continue Daily SAT and SBT assessment as tolerated - VAP bundle addressed - continue lung protective strategies - continue bronchodilators with pulmonary hygiene per RT - wean per pulmonary driven protocols otherwise - accuchecks with glycemic control per SSI (While critically ill target blood glucose of 140-180 mg/dL; avoid hypoglycemia) - sedation prn for target RASS -1 to -2 - continue enteral nutritional support at goal rate as tolerated - continue airborne and contact isolation - follow repeat COVID-19 testing - continue Zinc & Vit C supplementaion - continue systemic steroids for Asthma / severe COVID infection - Prone positioning as tolerated - continue empiric full dose anticoagulation re: elevated d-dimers / hypercoagulable state - NOT a candidate for COVID convalescent plasma - continue systemic steroids X >/= 10 days - complete remdesivir dosing (total 5 days) - Monitor liver function test on Remdesivir - trend inflammatory markers - ferritin, Ddimer, CRP, LDH; to aid clinical decision making - empiric AB's coverage per ID rec's otherwise - accuchecks with glycemic control per SSI (While critically ill target blood glucose of 140-180 mg/dL; avoid hypoglycemia) - avoid nephrotoxins, renally dose all medications - continue to avoid benzodiazepine's, reduce the possibility of delirium - prn analgesia per CPOT score - Maintenance of sleep-wake cycle, avoid delirium - continue to avoid benzodiazepine's, reduce the possibility of delirium - aspiration precautions - G.I. & VTE prophylaxis - PT/OT/ROM exercises - continue mobility protocols for pressure ulcer prophylaxis - Monitor hemodynamics closely - continue other care per attending / other consultants - discharge planning ongoing concurrently .... Re-evaluate in am & prn CONDITION: CRITICAL PROGNOSIS: GUARDED CODE STATUS: FULL CODE The high probability of a clinically significant, sudden or life-threatening deterioration of the [respiratory, cardiovascular, hematologic & neurologic] system(s) required my full and direct attention, intervention and personal management. The aggregate critical care time was [32] minutes without overlap. Time includes spent on; [x] Data Review and interpretation [x] Patient assessment and monitoring of vital signs [x] Documentation [x] Medication orders and management Subjective Date of service: 05/23/20 Principal diagnosis: Ac hypoxemic resp failure; COVID-19; Severe Sepsis; Shaggy PNA; Alcohol Abuse Interval history: Patient is seen today for: Acute hypoxemic respiratory failure due to COVID-19; Severe Sepsis; Bilateral pneumonia; Alcohol dependence; Elevated liver function tests Seen and examined at bedside; 24hour events reviewed; nursing and respiratory care staff consulted; no adverse overnight events reported to me; resting in bed; remains on MVS; looks comfortable; sedated to RASS -2; FiO2 down to 70% but peep remains at 16 Objective Vital Signs - 12hr 05/23/20 05/23/20 05/23/20 04:41 04:47 04:51 Temperature Pulse Rate 109 H 107 H 109 H Pulse Rate [ From Monitor] Respiratory 12 12 Rate Blood Pressure 121/71 121/71 121/71 O2 Sat by Pulse 93 95 94 Oximetry 05/23/20 05/23/20 05/23/20 05:00 05:11 05:21 Temperature Pulse Rate 104 H 108 H 106 H Pulse Rate [ From Monitor] Respiratory 14 11 L 11 L Rate Blood Pressure 100/73 100/73 100/73 O2 Sat by Pulse 97 94 95 Oximetry 05/23/20 05/23/20 05/23/20 05:31 05:41 05:51 Temperature Pulse Rate 106 H 108 H 107 H Pulse Rate [ From Monitor] Respiratory 13 12 11 L Rate Blood Pressure 100/73 100/73 100/73 O2 Sat by Pulse 95 95 95 Oximetry 05/23/20 05/23/20 05/23/20 06:00 06:11 06:21 Temperature Pulse Rate 102 H 107 H 109 H Pulse Rate [ From Monitor] Respiratory 14 10 L 17 Rate Blood Pressure 112/79 112/79 112/79 O2 Sat by Pulse 91 96 97 Oximetry 05/23/20 05/23/20 05/23/20 06:31 06:41 06:51 Temperature Pulse Rate 106 H 110 H 108 H Pulse Rate [ From Monitor] Respiratory 16 18 17 Rate Blood Pressure 112/79 112/79 112/79 O2 Sat by Pulse 97 96 94 Oximetry 05/23/20 05/23/2020 07:00 07:11 07:21 Temperature Pulse Rate 106 H 108 H 110 H Pulse Rate [ From Monitor] Respiratory 12 11 L 11 L Rate Blood Pressure 107/83 107/83 107/83 O2 Sat by Pulse 97 96 96 Oximetry 05/23/20 05/23/20 05/23/20 07:31 07:41 07:51 Temperature Pulse Rate 108 H 108 H 105 H Pulse Rate [ From Monitor] Respiratory 16 17 20 Rate Blood Pressure 107/83 107/83 107/83 O2 Sat by Pulse 96 98 98 Oximetry 05/23/20 05/23/20 05/23/20 08:00 08:11 08:21 Temperature Pulse Rate 109 H 109 H 107 H Pulse Rate [ 109 H From Monitor] Respiratory 20 18 20 Rate Blood Pressure 91/68 91/68 91/68 O2 Sat by Pulse 98 98 99 Oximetry 05/23/20 05/23/20 05/23/20 08:31 08:41 08:45 Temperature Pulse Rate 109 H 106 H 124 H Pulse Rate [ From Monitor] Respiratory 17 17 Rate Blood Pressure 91/68 91/68 133/89 O2 Sat by Pulse 98 99 95 Oximetry 05/23/20 05/23/20 05/23/20 08:51 09:01 09:11 Temperature Pulse Rate 107 H 117 H 118 H Pulse Rate [ From Monitor] Respiratory 14 14 15 Rate Blood Pressure 91/68 129/91 129/91 O2 Sat by Pulse 97 96 94 Oximetry 05/23/20 05/23/20 05/23/20 09:21 09:31 09:41 Temperature Pulse Rate 123 H 124 H 130 H Pulse Rate [ From Monitor] Respiratory 15 13 14 Rate Blood Pressure 129/91 129/91 129/91 O2 Sat by Pulse 94 94 91 Oximetry 05/23/20 05/23/20 05/23/20 09:51 10:00 10:11 Temperature Pulse Rate 124 H 123 H 130 H Pulse Rate [ From Monitor] Respiratory 13 14 24 Rate Blood Pressure 129/91 133/89 133/89 O2 Sat by Pulse 91 90 90 Oximetry 05/23/20 05/23/20 05/23/20 10:21 10:29 10:31 Temperature Pulse Rate 138 H 124 H 124 H Pulse Rate [ From Monitor] Respiratory 39 H 20 Rate Blood Pressure 133/89 133/89 133/89 O2 Sat by Pulse 85 92 Oximetry 05/23/20 05/23/20 05/23/20 10:41 10:51 11:00 Temperature Pulse Rate 125 H 124 H 118 H Pulse Rate [ From Monitor] Respiratory 19 29 H 24 Rate Blood Pressure 133/89 133/89 109/79 O2 Sat by Pulse 93 96 95 Oximetry 05/23/20 05/23/20 05/23/20 11:11 11:21 11:31 Temperature Pulse Rate 118 H 119 H 111 H Pulse Rate [ From Monitor] Respiratory 26 H 11 L 13 Rate Blood Pressure 109/79 109/79 109/79 O2 Sat by Pulse 96 94 96 Oximetry 05/23/20 05/23/20 05/23/20 11:41 11:51 12:00 Temperature 98.5 F Pulse Rate 113 H 113 H 113 H Pulse Rate [ 109 H From Monitor] Respiratory 14 12 12 Rate Blood Pressure 109/79 109/79 103/72 O2 Sat by Pulse 94 95 94 Oximetry 05/23/20 05/23/20 05/23/20 12:11 12:17 12:21 Temperature Pulse Rate 110 H 111 H 110 H Pulse Rate [ From Monitor] Respiratory 14 11 L Rate Blood Pressure 103/72 103/72 103/72 O2 Sat by Pulse 95 95 95 Oximetry 05/23/20 05/23/20 05/23/20 12:31 12:41 12:51 Temperature Pulse Rate 111 H 109 H 112 H Pulse Rate [ From Monitor] Respiratory 12 13 11 L Rate Blood Pressure 103/72 103/72 103/72 O2 Sat by Pulse 95 95 95 Oximetry 05/23/20 05/23/20 05/23/20 13:00 13:11 13:21 Temperature Pulse Rate 106 H 114 H 114 H Pulse Rate [ From Monitor] Respiratory 15 24 21 Rate Blood Pressure 104/76 104/76 104/76 O2 Sat by Pulse 96 85 90 Oximetry 05/23/20 05/23/20 05/23/20 13:31 13:41 13:51 Temperature Pulse Rate 112 H 108 H 113 H Pulse Rate [ From Monitor] Respiratory 22 16 15 Rate Blood Pressure 104/76 104/76 104/76 O2 Sat by Pulse 90 92 93 Oximetry 05/23/20 05/23/20 05/23/20 14:00 14:11 14:21 Temperature Pulse Rate 113 H 122 H 115 H Pulse Rate [ From Monitor] Respiratory 15 19 17 Rate Blood Pressure 106/85 106/85 106/85 O2 Sat by Pulse 91 88 86 Oximetry 05/23/20 05/23/20 05/23/20 14:31 14:41 14:51 Temperature Pulse Rate 127 H 116 H 112 H Pulse Rate [ From Monitor] Respiratory 17 22 21 Rate Blood Pressure 106/85 106/85 106/85 O2 Sat by Pulse 86 88 92 Oximetry 05/23/20 05/23/20 05/23/20 15:01 15:11 15:21 Temperature Pulse Rate 130 H 131 H 127 H Pulse Rate [ From Monitor] Respiratory 21 18 20 Rate Blood Pressure 110/79 110/79 110/79 O2 Sat by Pulse 90 86 91 Oximetry 05/23/20 05/23/20 05/23/20 15:31 15:41 16:04 Temperature Pulse Rate 119 H Pulse Rate [ From Monitor] Respiratory Rate Blood Pressure 110/79 110/79 101/71 O2 Sat by Pulse 90 93 95 Oximetry 05/23/20 16:35 Temperature 99.4 F Pulse Rate Pulse Rate [ From Monitor] Respiratory Rate Blood Pressure O2 Sat by Pulse Oximetry Constitutional: no acute distress, asleep, other (middle aged obese male without significant ventilator dyssynchrony) Eyes: non-icteric ENT: oropharynx moist, other (ETT 24 cm CHILO) Neck: supple, no JVD Effort: normal, mildly labored Ascultation: Bilateral: diminished breath sounds, rhonchi Percussion: Bilateral: not dull Cardiovascular: regular rate and rhythm Gastrointestinal: normoactive bowel sounds, soft, non-tender, non-distended (protuberant) Integumentary: normal Extremities: no cyanosis, no edema, pulses normal, no ischemia or petechiae Neurologic: non-focal exam, pupils equal and round, CN II-XII normal, motor strength normal and, other (sedated) Psychiatric: other (sedated) CBC and BMP: 05/22/20 07:53 05/22/20 07:53 ABG, PT/INR, D-dimer: ABG ABG pH 7.328 pH Units (7.350-7.450) L 05/23/20 04:17 POC ABG pCO2 53.8 mmHg (32.0-48.0) H 05/22/20 04:01 ABG pCO2 60.5 mm Hg 05/23/20 04:17 POC ABG pO2 125.5 mmHg (83-108) H 05/22/20 04:01 ABG pO2 72.8 mm Hg (80.0-90.0) L 05/23/20 04:17 POC ABG HCO3 30.5 05/22/20 04:01 ABG O2 Saturation 93.5 % (95.0-99.0) L 05/23/20 04:17 PT/INR, D-dimer D-Dimer 1887.82 ng/mlDDU (0-234) H 05/20/20 08:16 Abnormal lab findings: Abnormal Labs 05/09/20 05/09/20 05/09/20 12:59 12:59 12:59 WBC 11.8 H MCV 96 H MCH 34 H MCHC 35 H RDW Lymph % (Auto) 6.9 L Lymph # (Auto) 0.8 L Seg Neutrophils % 87.5 H Seg Neuts % (Manual) Lymphocytes % (Manual) Seg Neutrophils # 10.3 H Seg Neutrophils # Man Lymphocytes # (Manual) D-Dimer ABG pH POC ABG pCO2 POC ABG pO2 ABG pO2 ABG HCO3 ABG O2 Saturation ABG Base Excess ABG Hemoglobin ABG Oxyhemoglobin ABG Sodium ABG Potassium ABG Chloride ABG Glucose Oxyhemoglobin Sodium 130 L Potassium 3.5 L Chloride 86.4 L Carbon Dioxide BUN 33 H Creatinine 2.3 H Glucose 156 H POC Glucose Lactic Acid Calcium Magnesium Ferritin Total Bilirubin 3.40 H Direct Bilirubin 1.7 H AST 385 H ALT 134 H Alkaline Phosphatase Lactate Dehydrogenase C-Reactive Protein Total Protein Albumin 3.0 L Arterial Blood Glucose Arterial Blood Ionized Calcium Urine WBC (Auto) Coronavirus (PCR) SARS-CoV-2 IgG Ab 05/09/20 05/09/20 05/09/20 12:59 12:59 12:59 WBC MCV MCH MCHC RDW Lymph % (Auto) Lymph # (Auto) Seg Neutrophils % Seg Neuts % (Manual) Lymphocytes % (Manual) Seg Neutrophils # Seg Neutrophils # Man Lymphocytes # (Manual) D-Dimer 3242.51 H ABG pH POC ABG pCO2 POC ABG pO2 ABG pO2 ABG HCO3 ABG O2 Saturation ABG Base Excess ABG Hemoglobin ABG Oxyhemoglobin ABG Sodium ABG Potassium ABG Chloride ABG Glucose Oxyhemoglobin Sodium Potassium Chloride Carbon Dioxide BUN Creatinine Glucose 158 H POC Glucose Lactic Acid 3.50 H* Calcium Magnesium Ferritin Total Bilirubin Direct Bilirubin AST ALT Alkaline Phosphatase Lactate Dehydrogenase 2166 H C-Reactive Protein 39.00 H Total Protein Albumin Arterial Blood Glucose Arterial Blood Ionized Calcium Urine WBC (Auto) Coronavirus (PCR) SARS-CoV-2 IgG Ab 05/09/20 05/09/20 05/09/20 12:59 14:20 14:20 WBC MCV MCH MCHC RDW Lymph % (Auto) Lymph # (Auto) Seg Neutrophils % Seg Neuts % (Manual) Lymphocytes % (Manual) Seg Neutrophils # Seg Neutrophils # Man Lymphocytes # (Manual) D-Dimer 2861.78 H ABG pH POC ABG pCO2 POC ABG pO2 ABG pO2 ABG HCO3 ABG O2 Saturation ABG Base Excess ABG Hemoglobin ABG Oxyhemoglobin ABG Sodium ABG Potassium ABG Chloride ABG Glucose Oxyhemoglobin Sodium Potassium Chloride Carbon Dioxide BUN Creatinine Glucose POC Glucose Lactic Acid 2.20 H* Calcium Magnesium Ferritin 39549.0 H Total Bilirubin Direct Bilirubin AST ALT Alkaline Phosphatase Lactate Dehydrogenase C-Reactive Protein Total Protein Albumin Arterial Blood Glucose Arterial Blood Ionized Calcium Urine WBC (Auto) Coronavirus (PCR) SARS-CoV-2 IgG Ab 05/09/20 05/09/20 05/09/20 14:20 14:20 15:56 WBC MCV MCH MCHC RDW Lymph % (Auto) Lymph # (Auto) Seg Neutrophils % Seg Neuts % (Manual) Lymphocytes % (Manual) Seg Neutrophils # Seg Neutrophils # Man Lymphocytes # (Manual) D-Dimer ABG pH POC ABG pCO2 POC ABG pO2 57.3 L ABG pO2 ABG HCO3 ABG O2 Saturation ABG Base Excess ABG Hemoglobin ABG Oxyhemoglobin 86.3 L ABG Sodium 129.9 L ABG Potassium ABG Chloride ABG Glucose 146 H Oxyhemoglobin Sodium Potassium Chloride Carbon Dioxide BUN Creatinine Glucose 143 H POC Glucose Lactic Acid Calcium Magnesium Ferritin 77837.0 H Total Bilirubin Direct Bilirubin AST ALT Alkaline Phosphatase Lactate Dehydrogenase 1953 H C-Reactive Protein 33.50 H Total Protein Albumin Arterial Blood Glucose 146 H Arterial Blood Ionized Calcium 3.9 L Urine WBC (Auto) Coronavirus (PCR) SARS-CoV-2 IgG Ab 05/10/20 05/10/20 05/10/20 10:32 10:32 18:50 WBC 15.4 H MCV 97 H MCH 33 H MCHC RDW 13.1 L Lymph % (Auto) Lymph # (Auto) Seg Neutrophils % Seg Neuts % (Manual) 89.0 H Lymphocytes % (Manual) 8.0 L Seg Neutrophils # Seg Neutrophils # Man 13.7 H Lymphocytes # (Manual) D-Dimer ABG pH POC ABG pCO2 POC ABG pO2 ABG pO2 ABG HCO3 ABG O2 Saturation ABG Base Excess ABG Hemoglobin ABG Oxyhemoglobin ABG Sodium ABG Potassium ABG Chloride ABG Glucose Oxyhemoglobin Sodium 136 L Potassium Chloride 97.4 L Carbon Dioxide BUN 37 H Creatinine 1.7 H Glucose 209 H POC Glucose Lactic Acid Calcium Magnesium Ferritin > 2000.0 H Total Bilirubin Direct Bilirubin AST ALT Alkaline Phosphatase Lactate Dehydrogenase C-Reactive Protein Total Protein Albumin Arterial Blood Glucose Arterial Blood Ionized Calcium Urine WBC (Auto) Coronavirus (PCR) SARS-CoV-2 IgG Ab 05/10/20 05/10/20 05/10/20 18:50 19:00 Unknown WBC MCV MCH MCHC RDW Lymph % (Auto) Lymph # (Auto) Seg Neutrophils % Seg Neuts % (Manual) Lymphocytes % (Manual) Seg Neutrophils # Seg Neutrophils # Man Lymphocytes # (Manual) D-Dimer > 91684 H ABG pH POC ABG pCO2 POC ABG pO2 ABG pO2 ABG HCO3 ABG O2 Saturation ABG Base Excess ABG Hemoglobin ABG Oxyhemoglobin ABG Sodium ABG Potassium ABG Chloride ABG Glucose Oxyhemoglobin Sodium Potassium Chloride Carbon Dioxide BUN Creatinine Glucose POC Glucose Lactic Acid Calcium Magnesium Ferritin Total Bilirubin Direct Bilirubin AST ALT Alkaline Phosphatase Lactate Dehydrogenase 1879 H C-Reactive Protein 24.80 H Total Protein Albumin Arterial Blood Glucose Arterial Blood Ionized Calcium Urine WBC (Auto) 11.0 H Coronavirus (PCR) SARS-CoV-2 IgG Ab 05/10/20 05/11/20 05/11/20 Unknown 07:30 07:30 WBC MCV MCH MCHC RDW Lymph % (Auto) Lymph # (Auto) Seg Neutrophils % Seg Neuts % (Manual) Lymphocytes % (Manual) Seg Neutrophils # Seg Neutrophils # Man Lymphocytes # (Manual) D-Dimer > 2000 H ABG pH POC ABG pCO2 POC ABG pO2 ABG pO2 ABG HCO3 ABG O2 Saturation ABG Base Excess ABG Hemoglobin ABG Oxyhemoglobin ABG Sodium ABG Potassium ABG Chloride ABG Glucose Oxyhemoglobin Sodium Potassium Chloride 96.3 L Carbon Dioxide BUN 36 H Creatinine Glucose 161 H POC Glucose Lactic Acid Calcium 8.3 L Magnesium Ferritin Total Bilirubin 1.50 H Direct Bilirubin 0.6 H AST 178 H ALT 111 H Alkaline Phosphatase Lactate Dehydrogenase C-Reactive Protein Total Protein Albumin 3.0 L Arterial Blood Glucose Arterial Blood Ionized Calcium Urine WBC (Auto) Coronavirus (PCR) Positive A SARS-CoV-2 IgG Ab 05/11/20 05/11/20 05/11/20 07:30 07:30 07:30 WBC MCV MCH MCHC RDW Lymph % (Auto) Lymph # (Auto) Seg Neutrophils % Seg Neuts % (Manual) Lymphocytes % (Manual) Seg Neutrophils # Seg Neutrophils # Man Lymphocytes # (Manual) D-Dimer ABG pH POC ABG pCO2 POC ABG pO2 ABG pO2 ABG HCO3 ABG O2 Saturation ABG Base Excess ABG Hemoglobin ABG Oxyhemoglobin ABG Sodium ABG Potassium ABG Chloride ABG Glucose Oxyhemoglobin Sodium Potassium Chloride Carbon Dioxide BUN Creatinine Glucose POC Glucose Lactic Acid Calcium Magnesium Ferritin 75959.0 H Total Bilirubin Direct Bilirubin AST ALT Alkaline Phosphatase Lactate Dehydrogenase 1523 H C-Reactive Protein 12.90 H Total Protein Albumin Arterial Blood Glucose Arterial Blood Ionized Calcium Urine WBC (Auto) Coronavirus (PCR) SARS-CoV-2 IgG Ab Reactive A 05/13/20 05/13/20 05/15/20 05:20 05:20 08:15 WBC MCV MCH MCHC RDW Lymph % (Auto) Lymph # (Auto) Seg Neutrophils % Seg Neuts % (Manual) Lymphocytes % (Manual) Seg Neutrophils # Seg Neutrophils # Man Lymphocytes # (Manual) D-Dimer > 79923 H 5318.28 H ABG pH POC ABG pCO2 POC ABG pO2 ABG pO2 ABG HCO3 ABG O2 Saturation ABG Base Excess ABG Hemoglobin ABG Oxyhemoglobin ABG Sodium ABG Potassium ABG Chloride ABG Glucose Oxyhemoglobin Sodium Potassium Chloride Carbon Dioxide 32 H BUN 30 H Creatinine Glucose 156 H POC Glucose Lactic Acid Calcium Magnesium 2.60 H Ferritin Total Bilirubin 1.40 H Direct Bilirubin AST 121 H ALT 119 H Alkaline Phosphatase Lactate Dehydrogenase 957 H C-Reactive Protein 4.00 H Total Protein Albumin 3.0 L Arterial Blood Glucose Arterial Blood Ionized Calcium Urine WBC (Auto) Coronavirus (PCR) SARS-CoV-2 IgG Ab 05/15/20 05/15/20 05/15/20 08:15 08:15 08:15 WBC 12.4 H MCV 98 H MCH 33 H MCHC RDW Lymph % (Auto) 9.7 L Lymph # (Auto) Seg Neutrophils % 86.8 H Seg Neuts % (Manual) Lymphocytes % (Manual) Seg Neutrophils # 10.8 H Seg Neutrophils # Man Lymphocytes # (Manual) D-Dimer ABG pH POC ABG pCO2 POC ABG pO2 ABG pO2 ABG HCO3 ABG O2 Saturation ABG Base Excess ABG Hemoglobin ABG Oxyhemoglobin ABG Sodium ABG Potassium ABG Chloride ABG Glucose Oxyhemoglobin Sodium Potassium Chloride 94.8 L Carbon Dioxide 32 H BUN 22 H Creatinine Glucose 115 H POC Glucose Lactic Acid Calcium 8.3 L Magnesium Ferritin 2494.0 H Total Bilirubin Direct Bilirubin AST 73 H ALT 121 H Alkaline Phosphatase Lactate Dehydrogenase 835 H C-Reactive Protein 3.40 H Total Protein 6.1 L Albumin 3.0 L Arterial Blood Glucose Arterial Blood Ionized Calcium Urine WBC (Auto) Coronavirus (PCR) SARS-CoV-2 IgG Ab 05/17/20 05/17/20 05/17/20 05:50 05:50 05:50 WBC MCV MCH MCHC RDW Lymph % (Auto) Lymph # (Auto) Seg Neutrophils % Seg Neuts % (Manual) Lymphocytes % (Manual) Seg Neutrophils # Seg Neutrophils # Man Lymphocytes # (Manual) D-Dimer 2911.42 H ABG pH POC ABG pCO2 POC ABG pO2 ABG pO2 ABG HCO3 ABG O2 Saturation ABG Base Excess ABG Hemoglobin ABG Oxyhemoglobin ABG Sodium ABG Potassium ABG Chloride ABG Glucose Oxyhemoglobin Sodium 136 L Potassium Chloride 96.0 L Carbon Dioxide 34 H BUN 22 H Creatinine Glucose 140 H POC Glucose Lactic Acid Calcium Magnesium Ferritin 2082.0 H Total Bilirubin Direct Bilirubin AST ALT 75 H Alkaline Phosphatase Lactate Dehydrogenase 601 H C-Reactive Protein 2.70 H Total Protein Albumin 2.9 L Arterial Blood Glucose Arterial Blood Ionized Calcium Urine WBC (Auto) Coronavirus (PCR) SARS-CoV-2 IgG Ab 05/17/20 05/18/20 05/20/20 05:50 12:22 08:16 WBC MCV 98 H MCH 33 H MCHC RDW Lymph % (Auto) 8.0 L Lymph # (Auto) 0.8 L Seg Neutrophils % 89.3 H Seg Neuts % (Manual) Lymphocytes % (Manual) Seg Neutrophils # 8.8 H Seg Neutrophils # Man Lymphocytes # (Manual) D-Dimer 1887.82 H ABG pH POC ABG pCO2 POC ABG pO2 ABG pO2 ABG HCO3 ABG O2 Saturation ABG Base Excess ABG Hemoglobin ABG Oxyhemoglobin ABG Sodium ABG Potassium ABG Chloride ABG Glucose Oxyhemoglobin Sodium Potassium Chloride Carbon Dioxide BUN Creatinine Glucose POC Glucose 178 H Lactic Acid Calcium Magnesium Ferritin Total Bilirubin Direct Bilirubin AST ALT Alkaline Phosphatase Lactate Dehydrogenase C-Reactive Protein Total Protein Albumin Arterial Blood Glucose Arterial Blood Ionized Calcium Urine WBC (Auto) Coronavirus (PCR) SARS-CoV-2 IgG Ab 05/20/20 05/20/20 05/21/20 08:16 08:16 21:10 WBC MCV MCH MCHC RDW Lymph % (Auto) Lymph # (Auto) Seg Neutrophils % Seg Neuts % (Manual) Lymphocytes % (Manual) Seg Neutrophils # Seg Neutrophils # Man Lymphocytes # (Manual) D-Dimer ABG pH 7.483 H POC ABG pCO2 POC ABG pO2 ABG pO2 50.0 L ABG HCO3 27.0 H ABG O2 Saturation 86.2 L ABG Base Excess 3.7 H ABG Hemoglobin ABG Oxyhemoglobin ABG Sodium ABG Potassium ABG Chloride ABG Glucose Oxyhemoglobin 84.2 L Sodium Potassium Chloride Carbon Dioxide BUN Creatinine Glucose POC Glucose Lactic Acid Calcium Magnesium Ferritin 1960.0 H Total Bilirubin Direct Bilirubin AST ALT Alkaline Phosphatase Lactate Dehydrogenase 705 H C-Reactive Protein 3.10 H Total Protein Albumin Arterial Blood Glucose Arterial Blood Ionized Calcium Urine WBC (Auto) Coronavirus (PCR) SARS-CoV-2 IgG Ab 05/22/20 05/22/20 05/22/20 04:01 07:53 07:53 WBC 19.2 H MCV 98 H MCH 34 H MCHC RDW Lymph % (Auto) Lymph # (Auto) Seg Neutrophils % Seg Neuts % (Manual) 96.0 H Lymphocytes % (Manual) 1.0 L Seg Neutrophils # Seg Neutrophils # Man 18.4 H Lymphocytes # (Manual) 0.2 L D-Dimer ABG pH POC ABG pCO2 53.8 H POC ABG pO2 125.5 H ABG pO2 ABG HCO3 ABG O2 Saturation ABG Base Excess ABG Hemoglobin ABG Oxyhemoglobin ABG Sodium 131.8 L ABG Potassium 4.8 H ABG Chloride 94.0 L ABG Glucose 163 H Oxyhemoglobin Sodium 131 L Potassium Chloride 93.4 L Carbon Dioxide BUN 40 H Creatinine Glucose 176 H POC Glucose Lactic Acid Calcium Magnesium 2.70 H Ferritin Total Bilirubin 1.80 H Direct Bilirubin AST 45 H ALT 116 H Alkaline Phosphatase 181 H Lactate Dehydrogenase C-Reactive Protein Total Protein Albumin 2.6 L Arterial Blood Glucose 163 H Arterial Blood Ionized Calcium 4.5 L Urine WBC (Auto) Coronavirus (PCR) SARS-CoV-2 IgG Ab 05/23/20 04:17 WBC MCV MCH MCHC RDW Lymph % (Auto) Lymph # (Auto) Seg Neutrophils % Seg Neuts % (Manual) Lymphocytes % (Manual) Seg Neutrophils # Seg Neutrophils # Man Lymphocytes # (Manual) D-Dimer ABG pH 7.328 L POC ABG pCO2 POC ABG pO2 ABG pO2 72.8 L ABG HCO3 31.0 H ABG O2 Saturation 93.5 L ABG Base Excess 3.5 H ABG Hemoglobin 13.3 L ABG Oxyhemoglobin ABG Sodium ABG Potassium ABG Chloride ABG Glucose Oxyhemoglobin 91.5 L Sodium Potassium Chloride Carbon Dioxide BUN Creatinine Glucose POC Glucose Lactic Acid Calcium Magnesium Ferritin Total Bilirubin Direct Bilirubin AST ALT Alkaline Phosphatase Lactate Dehydrogenase C-Reactive Protein Total Protein Albumin Arterial Blood Glucose Arterial Blood Ionized Calcium Urine WBC (Auto) Coronavirus (PCR) SARS-CoV-2 IgG Ab Chest x-ray: image reviewed (mild improvement in bilateral infiltrates) Allied health notes reviewed: nursing
[2020-05-24] MEDS: fentaNYL DRIP Premix 2,000 MCG/100 ML BAG IV SCH ×3 (03:08→21:47)
--- NOTE | 2020-05-24 04:01 | XRay Report ---
CHEST 1 VIEW 05/24/2020 3:26 AM INDICATION / CLINICAL INFORMATION: follow up respiratory failure. COMPARISON: 05/23/2020 FINDINGS: SUPPORT DEVICES: Stable, satisfactory device positioning. HEART / MEDIASTINUM: Stable. LUNGS / PLEURA: Stable patchy bilateral opacities. No pneumothorax. ADDITIONAL FINDINGS: No significant additional findings. IMPRESSION: 1. No significant change. Signer Name: Lance Lynch MD Signed: 05/24/2020 3:56 AM Workstation Name: [id number]
[2020-05-24 04:39] LABS: ABG Base Excess 7.7 mmol/L (-2.0-3.0); ABG Methemoglobin 0.6 % (0.0-1.5); ABG Oxygen Saturation 96.5 % (95.0-99.0); ABG PH 7.402 pH Units (7.350-7.450); ABG PO2 73.4 mm Hg (80.0-90.0)
[2020-05-24] MEDS: methylPREDNISolone Sod Succinate 40 MG/1 ML INJ IV SCH ×2 (06:25→18:33)
[2020-05-24] MEDS: FOLIC ACID 1 MG TAB PO SCH (09:29)
[2020-05-24] MEDS: METOPROLOL TARTRATE 25 MG TAB PO SCH ×2 (09:29→21:20)
[2020-05-24] MEDS: ENOXAPARIN 120 MG/0.8 ML INJ SUB-Q SCH ×2 (09:30→21:20)
[2020-05-24] MEDS: FAMOTIDINE 20 MG/2 ML INJ IV SCH ×2 (09:47→21:22)
--- NOTE | 2020-05-24 10:02 | Progress Note ---
Assessment and Plan Assessment and Plan Patient intubated last night because of persistent hypoxia --Elevated D-dimers; on full dose anticoagulation However ID requested to get CTA chest, patient is unstable to go for CT As he is requiring high flow oxygen. -- Acute hypoxemic respiratory failure; Patient intubated and on vent support --Elevated D-dimers; check CTA to rule out PE Lower extremity venous Doppler to rule out DVT Patient is already on full dose anticoagulation per COVID-19 protocol -- Novel coronavirus infection with Bilateral pneumonia Coronavirus protocol: IV steroid therapy, IV remdesivir, isolation precautions, contact precautions, prone positioning while in bed, pulmonary toilet. consulted ID --Severe sepsis, due to COVID 19 PNA cont to treat for COVID -- Acute kidney injury (SEN) , likely vasomotor nephropathy Resolved, IV fluids, avoid nephrotoxins -- Alcohol dependence; no episodes of withdrawal symptoms Thiamine, folic acid, multivitamin, CIWA protocol. -- Elevated liver function tests Suspected secondary to alcoholic liver disease. Supportive care, alcohol cessation, patient counseled. -- DVT prophylaxis prophylactic AC with lovenox for elevated D-dimer We will closely monitor patient and adjust management as needed Patient has severe Covid pneumonia, severe hypoxia Critically ill very poor prognosis Full CODE STATUS The high probability of a clinically significant, sudden or life threatening deterioration of the [Covid pneumonia, ID, respiratory, liver] system(s) required my full and direct attention, intervention and personal management. The aggregate critical care time was [32] minutes. This time is in addition to time spent performing reported procedures but includes the following: [x] Data Review and interpretation [x] Patient assessment and monitoring of vital signs [x] Documentation [x] Medication orders and management. Subjective Date of service: 05/23/20 Principal diagnosis: Ac hypoxemic resp failure; COVID-19; Severe Sepsis; Shaggy PNA; Alcohol Abuse Interval history: Brief history; 50 YO Male with Obesity, ETOH Dependence presents to ED for evaluation for shortness of breath, generalized weakness, fatigue, malaise, body aches, decreased exercise tolerance over the past 5 days. EMS was notified and upon arrival the patient was found to be in distress with a pulse oximetry of 76% on room air as well as fever to 103 F. In the ER chest x-ray and was found to have bilateral pneumonia. Patient admitted to medical floor and initiated on pneumonia protocol as well as COVID-19 protocol. Patient severe Covid pneumonia, with persistent severe hypoxemia requiring very high flow oxygen Today on continuous BiPAP, patient is in mild distress, critically ill with very poor prognosis. Patient was on high flow oxygen but could not be maintained above 90 hence patient intubated last night electively 05/17/2020; patient with severe COVID-19 pneumonia, in isolation room Patient is on high flow oxygen, and BiPAP 05/18/20; patient feels slightly better still hypoxic, requiring continuous high flow oxygen and BiPAP Respiratory team trying to wean 05/19/20; patient is severely hypoxemic requiring continuous BiPAP today, complains of generalized weakness Trying to wean off high flow oxygen, patient is in isolation 05/20/2020; patient remains on high flow oxygen/BiPAP/100% nonrebreather. Still is hypoxemic Has sinus tachycardia patient in mild distress Wean off high flow oxygen as tolerated, pulmonary critical following 05/21/20; patient is critically ill, on continuous BiPAP remains hypoxemic in mild distress Patient has severe Covid Pneumonia with persistent hypoxemia and poor prognosis 05/22/2020 Patient was intubated last night because of persistent hypoxemia Objective - Constitutional Vitals: Vital Signs - 12hr 05/23/20 05/23/20 05/23/20 22:10 22:17 22:20 Temperature Pulse Rate 117 H 116 H 114 H Pulse Rate [ From Monitor] Respiratory 19 13 Rate Blood Pressure 121/82 121/82 121/82 O2 Sat by Pulse 93 94 Oximetry 05/23/20 05/23/20 05/23/20 22:30 22:40 22:50 Temperature Pulse Rate 116 H 110 H 109 H Pulse Rate [ From Monitor] Respiratory 13 11 L 13 Rate Blood Pressure 121/82 121/82 121/82 O2 Sat by Pulse 95 96 96 Oximetry 05/23/20 05/23/20 05/23/20 23:00 23:10 23:14 Temperature Pulse Rate 104 H 104 H 106 H Pulse Rate [ From Monitor] Respiratory 11 L 10 L 10 L Rate Blood Pressure 125/83 125/83 125/83 O2 Sat by Pulse 95 96 96 Oximetry 05/23/20 05/23/20 05/23/20 23:20 23:30 23:40 Temperature Pulse Rate 107 H 115 H 109 H Pulse Rate [ From Monitor] Respiratory 11 L 15 14 Rate Blood Pressure 125/83 125/83 125/83 O2 Sat by Pulse 96 95 96 Oximetry 05/23/20 05/24/20 05/24/20 23:50 00:00 00:04 Temperature 98.6 F Pulse Rate 105 H 108 H 107 H Pulse Rate [ 108 H From Monitor] Respiratory 12 15 Rate Blood Pressure 125/83 128/77 128/77 O2 Sat by Pulse 94 95 95 Oximetry 05/24/20 05/24/20 05/24/20 00:10 00:20 00:30 Temperature Pulse Rate 110 H 104 H 104 H Pulse Rate [ From Monitor] Respiratory 16 10 L 10 L Rate Blood Pressure 128/77 128/77 128/77 O2 Sat by Pulse 95 96 96 Oximetry 05/24/20 05/24/20 05/24/20 00:40 00:50 01:00 Temperature Pulse Rate 111 H 104 H 105 H Pulse Rate [ From Monitor] Respiratory 9 L 11 L 12 Rate Blood Pressure 128/77 128/77 117/69 O2 Sat by Pulse 96 96 97 Oximetry 05/24/20 05/24/20 05/24/20 01:10 01:20 01:30 Temperature Pulse Rate 103 H 108 H 107 H Pulse Rate [ From Monitor] Respiratory 12 10 L 12 Rate Blood Pressure 117/69 117/69 117/69 O2 Sat by Pulse 97 98 98 Oximetry 05/24/20 05/24/20 05/24/20 01:40 01:50 02:00 Temperature Pulse Rate 108 H 109 H 102 H Pulse Rate [ From Monitor] Respiratory 9 L 13 17 Rate Blood Pressure 117/69 117/69 117/74 O2 Sat by Pulse 97 98 99 Oximetry 05/24/20 05/24/20 05/24/20 02:10 02:20 02:30 Temperature Pulse Rate 101 H 106 H 100 H Pulse Rate [ From Monitor] Respiratory 13 15 19 Rate Blood Pressure 117/74 117/74 117/74 O2 Sat by Pulse 98 98 98 Oximetry 05/24/20 05/24/20 05/24/20 02:40 02:50 03:00 Temperature Pulse Rate 101 H 100 H 114 H Pulse Rate [ From Monitor] Respiratory 15 14 18 Rate Blood Pressure 117/74 117/74 131/74 O2 Sat by Pulse 97 97 96 Oximetry 05/24/20 05/24/20 05/24/20 03:10 03:20 03:30 Temperature Pulse Rate 107 H 99 H 97 H Pulse Rate [ From Monitor] Respiratory 15 17 12 Rate Blood Pressure 131/74 117/74 117/74 O2 Sat by Pulse 95 96 96 Oximetry 05/24/20 05/24/20 05/24/20 03:40 03:50 04:00 Temperature 98.8 F Pulse Rate 107 H 105 H 99 H Pulse Rate [ 99 H From Monitor] Respiratory 12 14 14 Rate Blood Pressure 117/74 131/74 124/67 O2 Sat by Pulse 96 96 97 Oximetry 05/24/20 05/24/20 05/24/20 04:10 04:14 04:20 Temperature Pulse Rate 106 H 105 H 101 H Pulse Rate [ From Monitor] Respiratory 20 19 Rate Blood Pressure 124/67 124/67 124/67 O2 Sat by Pulse 92 94 94 Oximetry 05/24/20 05/24/20 05/24/20 04:30 04:40 04:50 Temperature Pulse Rate 103 H 108 H 105 H Pulse Rate [ From Monitor] Respiratory 15 16 11 L Rate Blood Pressure 124/67 124/67 124/67 O2 Sat by Pulse 95 96 95 Oximetry 05/24/20 05/24/20 05/24/20 05:00 05:10 05:20 Temperature Pulse Rate 102 H 105 H 106 H Pulse Rate [ From Monitor] Respiratory 19 14 16 Rate Blood Pressure 123/83 123/83 123/83 O2 Sat by Pulse 95 95 96 Oximetry 05/24/20 05/24/20 05/24/20 05:30 05:40 05:50 Temperature Pulse Rate 106 H 109 H 111 H Pulse Rate [ From Monitor] Respiratory 14 17 24 Rate Blood Pressure 123/83 123/83 123/83 O2 Sat by Pulse 97 96 97 Oximetry 05/24/20 05/24/20 05/24/20 06:00 06:10 06:20 Temperature Pulse Rate 104 H 106 H 103 H Pulse Rate [ From Monitor] Respiratory 22 15 19 Rate Blood Pressure 125/66 125/66 125/66 O2 Sat by Pulse 98 98 96 Oximetry 05/24/20 05/24/20 05/24/20 06:30 06:40 06:50 Temperature Pulse Rate 105 H 101 H 100 H Pulse Rate [ From Monitor] Respiratory 20 16 19 Rate Blood Pressure 125/66 125/66 125/66 O2 Sat by Pulse 96 97 97 Oximetry 11/05/24/20 05/24/20 07:00 07:10 07:20 Temperature Pulse Rate 102 H 103 H 111 H Pulse Rate [ From Monitor] Respiratory 23 22 25 H Rate Blood Pressure 121/74 121/74 121/74 O2 Sat by Pulse 97 97 96 Oximetry 05/24/20 05/24/20 05/24/20 07:30 07:40 07:49 Temperature Pulse Rate 99 H 98 H 102 H Pulse Rate [ From Monitor] Respiratory 21 22 Rate Blood Pressure 121/74 121/74 121/74 O2 Sat by Pulse 95 99 97 Oximetry 05/24/20 05/24/20 05/24/20 07:50 08:00 08:01 Temperature 99 F 99.0 F Pulse Rate 96 H 94 H Pulse Rate [ 94 H From Monitor] Respiratory 17 19 Rate Blood Pressure 121/74 128/64 O2 Sat by Pulse 99 96 Oximetry 05/24/20 05/24/20 05/24/20 08:10 08:20 08:30 Temperature Pulse Rate 96 H 100 H 109 H Pulse Rate [ From Monitor] Respiratory 21 15 21 Rate Blood Pressure 128/64 128/64 128/64 O2 Sat by Pulse 98 97 94 Oximetry 05/24/20 05/24/20 05/24/20 08:40 08:50 09:00 Temperature Pulse Rate 101 H 106 H 105 H Pulse Rate [ From Monitor] Respiratory 18 16 15 Rate Blood Pressure 128/64 128/64 119/69 O2 Sat by Pulse 96 97 96 Oximetry 05/24/20 05/24/20 05/24/20 09:10 09:20 09:29 Temperature Pulse Rate 105 H 106 H 105 H Pulse Rate [ From Monitor] Respiratory 15 27 H Rate Blood Pressure 119/69 119/69 119/69 O2 Sat by Pulse 96 98 Oximetry General appearance: Present: no acute distress, well-nourished - EENT Eyes: PERRL, EOM intact ENT: hearing intact, clear oral mucosa Ears: bilateral: normal - Neck Neck: supple, normal ROM - Respiratory Respiratory effort: normal Respiratory: bilateral: CTA - Breasts Breasts: normal - Cardiovascular Rhythm: regular Heart Sounds: Present: S1 & S2. Absent: gallop, rub Extremities: pulses intact, No edema, normal color, Full ROM - Gastrointestinal General gastrointestinal: Present: soft, non-tender, non-distended, normal bowel sounds - Genitourinary Male genitourinary: normal - Integumentary Integumentary: clear, warm, dry - Musculoskeletal Musculoskeletal: 1, strength equal bilaterally - Neurologic Neurologic: moves all extremities - Psychiatric Psychiatric: memory intact, appropriate mood/affect, intact judgment & insight - Labs CBC & Chem 7: 05/22/20 07:53 05/22/20 07:53 Labs: Abnormal lab results 05/24/20 05/24/20 Range/Units 03:07 04:08 ABG pO2 73.4 L (80.0-90.0) mm Hg ABG HCO3 34.0 H (20.0-26.0) mmol/L ABG Base Excess 7.7 H (-2.0-3.0) mmol/L ABG Hemoglobin 12.1 L (14.0-18.0) gm/dl Oxyhemoglobin 94.3 L (95.0-99.0) % POC Glucose 155 H (70-105) mg/dL
[2020-05-24 11:07] LABS: Blood Urea Nitrogen 28 mg/dL (9-20); Calcium 8.9 mg/dL (8.4-10.2); Hemolysis Index 2
[2020-05-24 11:13] LABS: BUN/Creatinine Ratio 40
--- NOTE | 2020-05-24 13:12 | Progress Note ---
Assessment and Plan Cultures: Blood culture 04/28/2020 no growth today SARS CoV2 PCR positive Sputum and urine culture with no significant growth Assessment: 50 years old male with history of alcohol dependence and obesity admitted on 05/09/2020 due to 5-day history of generalized malaise, fatigue, body aches, dyspnea exertion, cough and shortness of breath, tested positive for COVID-19 2 days before admission: #Severe sepsis: likely due to bilateral pneumonia from COVID. #Severe COVID pneumonia: Chest x-ray with bilateral patchy infiltrates. SARS-CoV-2 PCR positive. Inflammatory markers markedly elevated, D-dimer 10,000, ferritin 38,000. Noted elevated procalcitonin likely due to elevated creatinine, however treated for bacterial component given severe sepsis. SARS CoV-2 IgG positive patient is NOT a candidate for COVID convalescent plasma. #Acute hypoxemic respiratory failure: intubated on 05/22/2020 #Elevated LFTs: from COVID #Elevated D-dimer: Venous ultrasound no DVT. Recommendations: -continue steroids: on Solu-Medrol per ICU -Completed remdesivir -Monitor inflammatory markers - ferritin, Ddimer, CRP, LDH every 2-3 days -Continue anticoagulation per System Protocol -continue full dose anticoagulation given elevated D-dimer Julio Bennett MD, FACP [facility], [facility] ([facility] O: [phone] F: [phone] Subjective Date of service: 05/24/20 Principal diagnosis: Ac hypoxemic resp failure; COVID-19; Severe Sepsis; Shaggy PNA; Alcohol Abuse Interval history: No fever. Remains intubated, on mechanical ventilation. Objective - Exam Narrative Exam: Physical Exam (reviewed in chart due to PPE conservation and minimize risk of transmission) Constitutional: limited due to PPE conservation strategy Head, Ears, Nose: limited due to PPE conservation strategy Eyes: limited due to PPE conservation strategy Neck: limited due to PPE conservation strategy Oral: limited due to PPE conservation strategy Cardiovascular: limited due to PPE conservation strategy Respiratory: limited due to PPE conservation strategy GI: limited due to PPE conservation strategy Musculoskeletal: limited due to PPE conservation strategy Skin: limited due to PPE conservation strategy Hem/Lymphatic: limited due to PPE conservation strategy Psych: limited due to PPE conservation strategy Neurological: limited due to PPE conservation strategy - Constitutional Vitals: Vital Signs Temp Pulse Resp BP Pulse Ox 99.2 F 99 H 15 127/65 95 05/24/20 12:00 05/24/20 12:40 05/24/20 12:40 05/24/20 12:40 05/24/20 12:40 Temperature -Last 24 Hours Temperature 99.2 F Temperature 99.0 F Temperature 99 F Temperature 98.8 F Temperature 98.6 F Temperature 99.3 F Temperature 99.4 F - Labs CBC & Chem 7: 05/22/20 07:53 05/24/20 09:33 Labs: Abnormal lab results 05/24/20 05/24/20 05/24/20 Range/Units 03:07 04:08 09:33 ABG pO2 73.4 L (80.0-90.0) mm Hg ABG HCO3 34.0 H (20.0-26.0) mmol/L ABG Base Excess 7.7 H (-2.0-3.0) mmol/L ABG Hemoglobin 12.1 L (14.0-18.0) gm/dl Oxyhemoglobin 94.3 L (95.0-99.0) % Carbon Dioxide 34 H D (22-30) mmol/L BUN 28 H (9-20) mg/dL Creatinine 0.7 L (0.8-1.3) mg/dL Glucose 168 H (75-100) mg/dL POC Glucose 155 H (70-105) mg/dL
--- NOTE | 2020-05-24 15:51 | Progress Note ---
Assessment and Plan Acute hypoxemic respiratory failure due to COVID-19 Severe Sepsis Bilateral pneumonia Acute kidney injury (SEN) with acute tubular necrosis (ATN) Alcohol dependence Elevated liver function tests - azotemia improved - FiO2 reduced to 65% - keep peep at 16 - neurology evaluation ongoing - continue care as below otherwise; - continue to wean supplemental oxygen for target O2 sat's > 92% acutely - continue Daily SAT and SBT assessment as tolerated - VAP bundle addressed - continue lung protective strategies - continue bronchodilators with pulmonary hygiene per RT - wean per pulmonary driven protocols otherwise - accuchecks with glycemic control per SSI (While critically ill target blood glucose of 140-180 mg/dL; avoid hypoglycemia) - sedation prn for target RASS -1 to -2 - continue enteral nutritional support at goal rate as tolerated - continue airborne and contact isolation - follow repeat COVID-19 testing - continue Zinc & Vit C supplementaion - continue systemic steroids for Asthma / severe COVID infection - Prone positioning as tolerated - continue empiric full dose anticoagulation re: elevated d-dimers / hypercoagulable state - NOT a candidate for COVID convalescent plasma - continue systemic steroids X >/= 10 days - complete remdesivir dosing (total 5 days) - Monitor liver function test on Remdesivir - trend inflammatory markers - ferritin, Ddimer, CRP, LDH; to aid clinical decision making - empiric AB's coverage per ID rec's otherwise - accuchecks with glycemic control per SSI (While critically ill target blood glucose of 140-180 mg/dL; avoid hypoglycemia) - avoid nephrotoxins, renally dose all medications - continue to avoid benzodiazepine's, reduce the possibility of delirium - prn analgesia per CPOT score - Maintenance of sleep-wake cycle, avoid delirium - continue to avoid benzodiazepine's, reduce the possibility of delirium - aspiration precautions - G.I. & VTE prophylaxis - PT/OT/ROM exercises - continue mobility protocols for pressure ulcer prophylaxis - Monitor hemodynamics closely - continue other care per attending / other consultants - discharge planning ongoing concurrently .... Re-evaluate in am & prn CONDITION: CRITICAL PROGNOSIS: GUARDED CODE STATUS: FULL CODE The high probability of a clinically significant, sudden or life-threatening deterioration of the [respiratory, cardiovascular, hematologic & neurologic] system(s) required my full and direct attention, intervention and personal management. The aggregate critical care time was [34] minutes without overlap. Time includes spent on; [x] Data Review and interpretation [x] Patient assessment and monitoring of vital signs [x] Documentation [x] Medication orders and management Subjective Date of service: 05/24/20 Principal diagnosis: Ac hypoxemic resp failure; COVID-19; Severe Sepsis; Shaggy PNA; Alcohol Abuse Interval history: Patient is seen today for: Acute hypoxemic respiratory failure due to COVID-19; Severe Sepsis; Bilateral pneumonia; Alcohol dependence; Elevated liver function tests Seen and examined at bedside; 24hour events reviewed; nursing and respiratory care staff consulted; no adverse overnight events reported to me; resting in bed; remains on MVS; looks comfortable; FiO2 at 70% but room to wean; sedated; no emesis or overt aspiration; no high grade fevers Objective Vital Signs - 12hr 05/24/20 05/24/20 05/24/20 03:50 04:00 04:10 Temperature 98.8 F Pulse Rate 105 H 99 H 106 H Pulse Rate [ 99 H From Monitor] Respiratory 14 14 20 Rate Blood Pressure 131/74 124/67 124/67 O2 Sat by Pulse 96 97 92 Oximetry 05/24/20 05/24/20 05/24/20 04:14 04:20 04:30 Temperature Pulse Rate 105 H 101 H 103 H Pulse Rate [ From Monitor] Respiratory 19 15 Rate Blood Pressure 124/67 124/67 124/67 O2 Sat by Pulse 94 94 95 Oximetry 05/24/20 05/24/20 05/24/20 04:40 04:50 05:00 Temperature Pulse Rate 108 H 105 H 102 H Pulse Rate [ From Monitor] Respiratory 16 11 L 19 Rate Blood Pressure 124/67 124/67 123/83 O2 Sat by Pulse 96 95 95 Oximetry 05/24/20 05/24/20 05/24/20 05:10 05:20 05:30 Temperature Pulse Rate 105 H 106 H 106 H Pulse Rate [ From Monitor] Respiratory 14 16 14 Rate Blood Pressure 123/83 123/83 123/83 O2 Sat by Pulse 95 96 97 Oximetry 05/24/20 05/24/20 05/24/20 05:40 05:50 06:00 Temperature Pulse Rate 109 H 111 H 104 H Pulse Rate [ From Monitor] Respiratory 17 24 22 Rate Blood Pressure 123/83 123/83 125/66 O2 Sat by Pulse 96 97 98 Oximetry 05/24/20 05/24/20 05/24/20 06:10 06:20 06:30 Temperature Pulse Rate 106 H 103 H 105 H Pulse Rate [ From Monitor] Respiratory 15 19 20 Rate Blood Pressure 125/66 125/66 125/66 O2 Sat by Pulse 98 96 96 Oximetry 05/24/20 05/24/20 05/24/20 06:40 06:50 07:00 Temperature Pulse Rate 101 H 100 H 102 H Pulse Rate [ From Monitor] Respiratory 16 19 23 Rate Blood Pressure 125/66 125/66 121/74 O2 Sat by Pulse 97 97 97 Oximetry 05/24/20 05/24/20 05/24/20 07:10 07:20 07:30 Temperature Pulse Rate 103 H 111 H 99 H Pulse Rate [ From Monitor] Respiratory 22 25 H 21 Rate Blood Pressure 121/74 121/74 121/74 O2 Sat by Pulse 97 96 95 Oximetry 05/24/20 05/24/20 05/24/20 07:40 07:49 07:50 Temperature Pulse Rate 98 H 102 H 96 H Pulse Rate [ From Monitor] Respiratory 22 17 Rate Blood Pressure 121/74 121/74 121/74 O2 Sat by Pulse 99 97 99 Oximetry 05/24/20 05/24/20 05/24/20 08:00 08:01 08:10 Temperature 99 F 99.0 F Pulse Rate 94 H 96 H Pulse Rate [ 94 H From Monitor] Respiratory 19 21 Rate Blood Pressure 128/64 128/64 O2 Sat by Pulse 96 98 Oximetry 05/24/20 05/24/20 05/24/20 08:20 08:30 08:40 Temperature Pulse Rate 100 H 109 H 101 H Pulse Rate [ From Monitor] Respiratory 15 21 18 Rate Blood Pressure 128/64 128/64 128/64 O2 Sat by Pulse 97 94 96 Oximetry 05/24/20 05/24/20 05/24/20 08:50 09:00 09:10 Temperature Pulse Rate 106 H 105 H 105 H Pulse Rate [ From Monitor] Respiratory 16 15 15 Rate Blood Pressure 128/64 119/69 119/69 O2 Sat by Pulse 97 96 96 Oximetry 05/24/20 05/24/20 05/24/20 09:20 09:29 09:30 Temperature Pulse Rate 106 H 105 H 108 H Pulse Rate [ From Monitor] Respiratory 27 H 25 H Rate Blood Pressure 119/69 119/69 119/69 O2 Sat by Pulse 98 97 Oximetry 05/24/20 05/24/20 05/24/20 09:40 09:50 10:00 Temperature Pulse Rate 105 H 101 H 102 H Pulse Rate [ From Monitor] Respiratory 15 17 11 L Rate Blood Pressure 119/69 119/69 118/72 O2 Sat by Pulse 96 97 98 Oximetry 05/24/20 05/24/20 05/24/20 10:10 10:20 10:30 Temperature Pulse Rate 98 H 95 H 91 H Pulse Rate [ From Monitor] Respiratory 14 15 17 Rate Blood Pressure 118/72 118/72 118/72 O2 Sat by Pulse 98 98 99 Oximetry 05/24/20 05/24/20 05/24/20 10:40 10:50 11:00 Temperature Pulse Rate 95 H 99 H 100 H Pulse Rate [ From Monitor] Respiratory 16 14 18 Rate Blood Pressure 118/72 118/72 124/69 O2 Sat by Pulse 99 98 98 Oximetry 05/24/20 05/24/20 05/24/20 11:10 11:20 11:30 Temperature Pulse Rate 97 H 96 H 98 H Pulse Rate [ From Monitor] Respiratory 12 16 14 Rate Blood Pressure 124/69 124/69 124/69 O2 Sat by Pulse 97 97 97 Oximetry 05/24/20 05/24/20 05/24/20 11:40 11:50 12:00 Temperature 99.2 F Pulse Rate 95 H 93 H 97 H Pulse Rate [ 100 H From Monitor] Respiratory 20 17 19 Rate Blood Pressure 124/69 124/69 127/65 O2 Sat by Pulse 97 97 96 Oximetry 05/24/20 05/24/20 05/24/20 12:10 12:20 12:30 Temperature Pulse Rate 93 H 90 96 H Pulse Rate [ From Monitor] Respiratory 16 17 16 Rate Blood Pressure 127/65 127/65 127/65 O2 Sat by Pulse 97 96 96 Oximetry 05/24/20 05/24/20 05/24/20 12:40 12:50 13:00 Temperature Pulse Rate 99 H 96 H 105 H Pulse Rate [ From Monitor] Respiratory 15 13 10 L Rate Blood Pressure 127/65 127/65 113/68 O2 Sat by Pulse 95 97 97 Oximetry 05/24/20 05/24/20 05/24/20 13:10 13:20 13:30 Temperature Pulse Rate 117 H 100 H 101 H Pulse Rate [ From Monitor] Respiratory 22 16 15 Rate Blood Pressure 113/68 113/68 113/68 O2 Sat by Pulse 89 96 96 Oximetry 05/24/20 05/24/20 05/24/20 13:40 13:50 14:00 Temperature Pulse Rate 102 H 101 H 100 H Pulse Rate [ From Monitor] Respiratory 15 14 18 Rate Blood Pressure 113/68 113/68 109/70 O2 Sat by Pulse 97 97 97 Oximetry Constitutional: no acute distress, asleep, other (middle aged obese male without significant ventilator dyssynchrony) Eyes: non-icteric ENT: oropharynx moist, other (ETT 24 cm CHILO) Neck: supple, no JVD Effort: normal, mildly labored Ascultation: Bilateral: diminished breath sounds, rhonchi Percussion: Bilateral: not dull Cardiovascular: regular rate and rhythm Gastrointestinal: normoactive bowel sounds, soft, non-tender, non-distended (protuberant) Integumentary: normal Extremities: no cyanosis, no edema, pulses normal, no ischemia or petechiae Neurologic: non-focal exam, pupils equal and round, CN II-XII normal, motor st rength normal and, other (sedated) Psychiatric: other (sedated) CBC and BMP: 05/22/20 07:53 05/24/20 09:33 ABG, PT/INR, D-dimer: ABG ABG pH 7.402 pH Units (7.350-7.450) 05/24/20 04:08 POC ABG pCO2 53.8 mmHg (32.0-48.0) H 05/22/20 04:01 ABG pCO2 56.0 mm Hg 05/24/20 04:08 POC ABG pO2 125.5 mmHg (83-108) H 05/22/20 04:01 ABG pO2 73.4 mm Hg (80.0-90.0) L 05/24/20 04:08 POC ABG HCO3 30.5 05/22/20 04:01 ABG O2 Saturation 96.5 % (95.0-99.0) 05/24/20 04:08 PT/INR, D-dimer D-Dimer 1887.82 ng/mlDDU (0-234) H 05/20/20 08:16 Abnormal lab findings: Abnormal Labs 05/09/20 05/09/20 05/09/20 12:59 12:59 12:59 WBC 11.8 H MCV 96 H MCH 34 H MCHC 35 H RDW Lymph % (Auto) 6.9 L Lymph # (Auto) 0.8 L Seg Neutrophils % 87.5 H Seg Neuts % (Manual) Lymphocytes % (Manual) Seg Neutrophils # 10.3 H Seg Neutrophils # Man Lymphocytes # (Manual) D-Dimer ABG pH POC ABG pCO2 POC ABG pO2 ABG pO2 ABG HCO3 ABG O2 Saturation ABG Base Excess ABG Hemoglobin ABG Oxyhemoglobin ABG Sodium ABG Potassium ABG Chloride ABG Glucose Oxyhemoglobin Sodium 130 L Potassium 3.5 L Chloride 86.4 L Carbon Dioxide BUN 33 H Creatinine 2.3 H Glucose 156 H POC Glucose Lactic Acid Calcium Magnesium Ferritin Total Bilirubin 3.40 H Direct Bilirubin 1.7 H AST 385 H ALT 134 H Alkaline Phosphatase Lactate Dehydrogenase C-Reactive Protein Total Protein Albumin 3.0 L Arterial Blood Glucose Arterial Blood Ionized Calcium Urine WBC (Auto) Coronavirus (PCR) SARS-CoV-2 IgG Ab 05/09/20 05/09/20 05/09/20 12:59 12:59 12:59 WBC MCV MCH MCHC RDW Lymph % (Auto) Lymph # (Auto) Seg Neutrophils % Seg Neuts % (Manual) Lymphocytes % (Manual) Seg Neutrophils # Seg Neutrophils # Man Lymphocytes # (Manual) D-Dimer 3242.51 H ABG pH POC ABG pCO2 POC ABG pO2 ABG pO2 ABG HCO3 ABG O2 Saturation ABG Base Excess ABG Hemoglobin ABG Oxyhemoglobin ABG Sodium ABG Potassium ABG Chloride ABG Glucose Oxyhemoglobin Sodium Potassium Chloride Carbon Dioxide BUN Creatinine Glucose 158 H POC Glucose Lactic Acid 3.50 H* Calcium Magnesium Ferritin Total Bilirubin Direct Bilirubin AST ALT Alkaline Phosphatase Lactate Dehydrogenase 2166 H C-Reactive Protein 39.00 H Total Protein Albumin Arterial Blood Glucose Arterial Blood Ionized Calcium Urine WBC (Auto) Coronavirus (PCR) SARS-CoV-2 IgG Ab 05/09/20 05/09/20 05/09/20 12:59 14:20 14:20 WBC MCV MCH MCHC RDW Lymph % (Auto) Lymph # (Auto) Seg Neutrophils % Seg Neuts % (Manual) Lymphocytes % (Manual) Seg Neutrophils # Seg Neutrophils # Man Lymphocytes # (Manual) D-Dimer 2861.78 H ABG pH POC ABG pCO2 POC ABG pO2 ABG pO2 ABG HCO3 ABG O2 Saturation ABG Base Excess ABG Hemoglobin ABG Oxyhemoglobin ABG Sodium ABG Potassium ABG Chloride ABG Glucose Oxyhemoglobin Sodium Potassium Chloride Carbon Dioxide BUN Creatinine Glucose POC Glucose Lactic Acid 2.20 H* Calcium Magnesium Ferritin 08073.0 H Total Bilirubin Direct Bilirubin AST ALT Alkaline Phosphatase Lactate Dehydrogenase C-Reactive Protein Total Protein Albumin Arterial Blood Glucose Arterial Blood Ionized Calcium Urine WBC (Auto) Coronavirus (PCR) SARS-CoV-2 IgG Ab 05/09/20 05/09/20 05/09/20 14:20 14:20 15:56 WBC MCV MCH MCHC RDW Lymph % (Auto) Lymph # (Auto) Seg Neutrophils % Seg Neuts % (Manual) Lymphocytes % (Manual) Seg Neutrophils # Seg Neutrophils # Man Lymphocytes # (Manual) D-Dimer ABG pH POC ABG pCO2 POC ABG pO2 57.3 L ABG pO2 ABG HCO3 ABG O2 Saturation ABG Base Excess ABG Hemoglobin ABG Oxyhemoglobin 86.3 L ABG Sodium 129.9 L ABG Potassium ABG Chloride ABG Glucose 146 H Oxyhemoglobin Sodium Potassium Chloride Carbon Dioxide BUN Creatinine Glucose 143 H POC Glucose Lactic Acid Calcium Magnesium Ferritin 44640.0 H Total Bilirubin Direct Bilirubin AST ALT Alkaline Phosphatase Lactate Dehydrogenase 1953 H C-Reactive Protein 33.50 H Total Protein Albumin Arterial Blood Glucose 146 H Arterial Blood Ionized Calcium 3.9 L Urine WBC (Auto) Coronavirus (PCR) SARS-CoV-2 IgG Ab 05/10/20 05/10/20 05/10/20 10:32 10:32 18:50 WBC 15.4 H MCV 97 H MCH 33 H MCHC RDW 13.1 L Lymph % (Auto) Lymph # (Auto) Seg Neutrophils % Seg Neuts % (Manual) 89.0 H Lymphocytes % (Manual) 8.0 L Seg Neutrophils # Seg Neutrophils # Man 13.7 H Lymphocytes # (Manual) D-Dimer ABG pH POC ABG pCO2 POC ABG pO2 ABG pO2 ABG HCO3 ABG O2 Saturation ABG Base Excess ABG Hemoglobin ABG Oxyhemoglobin ABG Sodium ABG Potassium ABG Chloride ABG Glucose Oxyhemoglobin Sodium 136 L Potassium Chloride 97.4 L Carbon Dioxide BUN 37 H Creatinine 1.7 H Glucose 209 H POC Glucose Lactic Acid Calcium Magnesium Ferritin > 2000.0 H Total Bilirubin Direct Bilirubin AST ALT Alkaline Phosphatase Lactate Dehydrogenase C-Reactive Protein Total Protein Albumin Arterial Blood Glucose Arterial Blood Ionized Calcium Urine WBC (Auto) Coronavirus (PCR) SARS-CoV-2 IgG Ab 05/10/20 05/10/20 05/10/20 18:50 19:00 Unknown WBC MCV MCH MCHC RDW Lymph % (Auto) Lymph # (Auto) Seg Neutrophils % Seg Neuts % (Manual) Lymphocytes % (Manual) Seg Neutrophils # Seg Neutrophils # Man Lymphocytes # (Manual) D-Dimer > 62259 H ABG pH POC ABG pCO2 POC ABG pO2 ABG pO2 ABG HCO3 ABG O2 Saturation ABG Base Excess ABG Hemoglobin ABG Oxyhemoglobin ABG Sodium ABG Potassium ABG Chloride ABG Glucose Oxyhemoglobin Sodium Potassium Chloride Carbon Dioxide BUN Creatinine Glucose POC Glucose Lactic Acid Calcium Magnesium Ferritin Total Bilirubin Direct Bilirubin AST ALT Alkaline Phosphatase Lactate Dehydrogenase 1879 H C-Reactive Protein 24.80 H Total Protein Albumin Arterial Blood Glucose Arterial Blood Ionized Calcium Urine WBC (Auto) 11.0 H Coronavirus (PCR) SARS-CoV-2 IgG Ab 05/10/20 05/11/20 05/11/20 Unknown 07:30 07:30 WBC MCV MCH MCHC RDW Lymph % (Auto) Lymph # (Auto) Seg Neutrophils % Seg Neuts % (Manual) Lymphocytes % (Manual) Seg Neutrophils # Seg Neutrophils # Man Lymphocytes # (Manual) D-Dimer > 2000 H ABG pH POC ABG pCO2 POC ABG pO2 ABG pO2 ABG HCO3 ABG O2 Saturation ABG Base Excess ABG Hemoglobin ABG Oxyhemoglobin ABG Sodium ABG Potassium ABG Chloride ABG Glucose Oxyhemoglobin Sodium Potassium Chloride 96.3 L Carbon Dioxide BUN 36 H Creatinine Glucose 161 H POC Glucose Lactic Acid Calcium 8.3 L Magnesium Ferritin Total Bilirubin 1.50 H Direct Bilirubin 0.6 H AST 178 H ALT 111 H Alkaline Phosphatase Lactate Dehydrogenase C-Reactive Protein Total Protein Albumin 3.0 L Arterial Blood Glucose Arterial Blood Ionized Calcium Urine WBC (Auto) Coronavirus (PCR) Positive A SARS-CoV-2 IgG Ab 05/11/20 05/11/20 05/11/20 07:30 07:30 07:30 WBC MCV MCH MCHC RDW Lymph % (Auto) Lymph # (Auto) Seg Neutrophils % Seg Neuts % (Manual) Lymphocytes % (Manual) Seg Neutrophils # Seg Neutrophils # Man Lymphocytes # (Manual) D-Dimer ABG pH POC ABG pCO2 POC ABG pO2 ABG pO2 ABG HCO3 ABG O2 Saturation ABG Base Excess ABG Hemoglobin ABG Oxyhemoglobin ABG Sodium ABG Potassium ABG Chloride ABG Glucose Oxyhemoglobin Sodium Potassium Chloride Carbon Dioxide BUN Creatinine Glucose POC Glucose Lactic Acid Calcium Magnesium Ferritin 78050.0 H Total Bilirubin Direct Bilirubin AST ALT Alkaline Phosphatase Lactate Dehydrogenase 1523 H C-Reactive Protein 12.90 H Total Protein Albumin Arterial Blood Glucose Arterial Blood Ionized Calcium Urine WBC (Auto) Coronavirus (PCR) SARS-CoV-2 IgG Ab Reactive A 05/13/20 05/13/20 05/15/20 05:20 05:20 08:15 WBC MCV MCH MCHC RDW Lymph % (Auto) Lymph # (Auto) Seg Neutrophils % Seg Neuts % (Manual) Lymphocytes % (Manual) Seg Neutrophils # Seg Neutrophils # Man Lymphocytes # (Manual) D-Dimer > 03584 H 5318.28 H ABG pH POC ABG pCO2 POC ABG pO2 ABG pO2 ABG HCO3 ABG O2 Saturation ABG Base Excess ABG Hemoglobin ABG Oxyhemoglobin ABG Sodium ABG Potassium ABG Chloride ABG Glucose Oxyhemoglobin Sodium Potassium Chloride Carbon Dioxide 32 H BUN 30 H Creatinine Glucose 156 H POC Glucose Lactic Acid Calcium Magnesium 2.60 H Ferritin Total Bilirubin 1.40 H Direct Bilirubin AST 121 H ALT 119 H Alkaline Phosphatase Lactate Dehydrogenase 957 H C-Reactive Protein 4.00 H Total Protein Albumin 3.0 L Arterial Blood Glucose Arterial Blood Ionized Calcium Urine WBC (Auto) Coronavirus (PCR) SARS-CoV-2 IgG Ab 05/15/20 05/15/20 05/15/20 08:15 08:15 08:15 WBC 12.4 H MCV 98 H MCH 33 H MCHC RDW Lymph % (Auto) 9.7 L Lymph # (Auto) Seg Neutrophils % 86.8 H Seg Neuts % (Manual) Lymphocytes % (Manual) Seg Neutrophils # 10.8 H Seg Neutrophils # Man Lymphocytes # (Manual) D-Dimer ABG pH POC ABG pCO2 POC ABG pO2 ABG pO2 ABG HCO3 ABG O2 Saturation ABG Base Excess ABG Hemoglobin ABG Oxyhemoglobin ABG Sodium ABG Potassium ABG Chloride ABG Glucose Oxyhemoglobin Sodium Potassium Chloride 94.8 L Carbon Dioxide 32 H BUN 22 H Creatinine Glucose 115 H POC Glucose Lactic Acid Calcium 8.3 L Magnesium Ferritin 2494.0 H Total Bilirubin Direct Bilirubin AST 73 H ALT 121 H Alkaline Phosphatase Lactate Dehydrogenase 835 H C-Reactive Protein 3.40 H Total Protein 6.1 L Albumin 3.0 L Arterial Blood Glucose Arterial Blood Ionized Calcium Urine WBC (Auto) Coronavirus (PCR) SARS-CoV-2 IgG Ab 05/17/20 05/17/20 05/17/20 05:50 05:50 05:50 WBC MCV MCH MCHC RDW Lymph % (Auto) Lymph # (Auto) Seg Neutrophils % Seg Neuts % (Manual) Lymphocytes % (Manual) Seg Neutrophils # Seg Neutrophils # Man Lymphocytes # (Manual) D-Dimer 2911.42 H ABG pH POC ABG pCO2 POC ABG pO2 ABG pO2 ABG HCO3 ABG O2 Saturation ABG Base Excess ABG Hemoglobin ABG Oxyhemoglobin ABG Sodium ABG Potassium ABG Chloride ABG Glucose Oxyhemoglobin Sodium 136 L Potassium Chloride 96.0 L Carbon Dioxide 34 H BUN 22 H Creatinine Glucose 140 H POC Glucose Lactic Acid Calcium Magnesium Ferritin 2082.0 H Total Bilirubin Direct Bilirubin AST ALT 75 H Alkaline Phosphatase Lactate Dehydrogenase 601 H C-Reactive Protein 2.70 H Total Protein Albumin 2.9 L Arterial Blood Glucose Arterial Blood Ionized Calcium Urine WBC (Auto) Coronavirus (PCR) SARS-CoV-2 IgG Ab 05/17/20 05/18/20 05/20/20 05:50 12:22 08:16 WBC MCV 98 H MCH 33 H MCHC RDW Lymph % (Auto) 8.0 L Lymph # (Auto) 0.8 L Seg Neutrophils % 89.3 H Seg Neuts % (Manual) Lymphocytes % (Manual) Seg Neutrophils # 8.8 H Seg Neutrophils # Man Lymphocytes # (Manual) D-Dimer 1887.82 H ABG pH POC ABG pCO2 POC ABG pO2 ABG pO2 ABG HCO3 ABG O2 Saturation ABG Base Excess ABG Hemoglobin ABG Oxyhemoglobin ABG Sodium ABG Potassium ABG Chloride ABG Glucose Oxyhemoglobin Sodium Potassium Chloride Carbon Dioxide BUN Creatinine Glucose POC Glucose 178 H Lactic Acid Calcium Magnesium Ferritin Total Bilirubin Direct Bilirubin AST ALT Alkaline Phosphatase Lactate Dehydrogenase C-Reactive Protein Total Protein Albumin Arterial Blood Glucose Arterial Blood Ionized Calcium Urine WBC (Auto) Coronavirus (PCR) SARS-CoV-2 IgG Ab 05/20/20 05/20/20 05/21/20 08:16 08:16 21:10 WBC MCV MCH MCHC RDW Lymph % (Auto) Lymph # (Auto) Seg Neutrophils % Seg Neuts % (Manual) Lymphocytes % (Manual) Seg Neutrophils # Seg Neutrophils # Man Lymphocytes # (Manual) D-Dimer ABG pH 7.483 H POC ABG pCO2 POC ABG pO2 ABG pO2 50.0 L ABG HCO3 27.0 H ABG O2 Saturation 86.2 L ABG Base Excess 3.7 H ABG Hemoglobin ABG Oxyhemoglobin ABG Sodium ABG Potassium ABG Chloride ABG Glucose Oxyhemoglobin 84.2 L Sodium Potassium Chloride Carbon Dioxide BUN Creatinine Glucose POC Glucose Lactic Acid Calcium Magnesium Ferritin 1960.0 H Total Bilirubin Direct Bilirubin AST ALT Alkaline Phosphatase Lactate Dehydrogenase 705 H C-Reactive Protein 3.10 H Total Protein Albumin Arterial Blood Glucose Arterial Blood Ionized Calcium Urine WBC (Auto) Coronavirus (PCR) SARS-CoV-2 IgG Ab 05/22/20 05/22/20 05/22/20 04:01 07:53 07:53 WBC 19.2 H MCV 98 H MCH 34 H MCHC RDW Lymph % (Auto) Lymph # (Auto) Seg Neutrophils % Seg Neuts % (Manual) 96.0 H Lymphocytes % (Manual) 1.0 L Seg Neutrophils # Seg Neutrophils # Man 18.4 H Lymphocytes # (Manual) 0.2 L D-Dimer ABG pH POC ABG pCO2 53.8 H POC ABG pO2 125.5 H ABG pO2 ABG HCO3 ABG O2 Saturation ABG Base Excess ABG Hemoglobin ABG Oxyhemoglobin ABG Sodium 131.8 L ABG Potassium 4.8 H ABG Chloride 94.0 L ABG Glucose 163 H Oxyhemoglobin Sodium 131 L Potassium Chloride 93.4 L Carbon Dioxide BUN 40 H Creatinine Glucose 176 H POC Glucose Lactic Acid Calcium Magnesium 2.70 H Ferritin Total Bilirubin 1.80 H Direct Bilirubin AST 45 H ALT 116 H Alkaline Phosphatase 181 H Lactate Dehydrogenase C-Reactive Protein Total Protein Albumin 2.6 L Arterial Blood Glucose 163 H Arterial Blood Ionized Calcium 4.5 L Urine WBC (Auto) Coronavirus (PCR) SARS-CoV-2 IgG Ab 05/23/20 05/24/20 05/24/20 04:17 03:07 04:08 WBC MCV MCH MCHC RDW Lymph % (Auto) Lymph # (Auto) Seg Neutrophils % Seg Neuts % (Manual) Lymphocytes % (Manual) Seg Neutrophils # Seg Neutrophils # Man Lymphocytes # (Manual) D-Dimer ABG pH 7.328 L POC ABG pCO2 POC ABG pO2 ABG pO2 72.8 L 73.4 L ABG HCO3 31.0 H 34.0 H ABG O2 Saturation 93.5 L ABG Base Excess 3.5 H 7.7 H ABG Hemoglobin 13.3 L 12.1 L ABG Oxyhemoglobin ABG Sodium ABG Potassium ABG Chloride ABG Glucose Oxyhemoglobin 91.5 L 94.3 L Sodium Potassium Chloride Carbon Dioxide BUN Creatinine Glucose POC Glucose 155 H Lactic Acid Calcium Magnesium Ferritin Total Bilirubin Direct Bilirubin AST ALT Alkaline Phosphatase Lactate Dehydrogenase C-Reactive Protein Total Protein Albumin Arterial Blood Glucose Arterial Blood Ionized Calcium Urine WBC (Auto) Coronavirus (PCR) SARS-CoV-2 IgG Ab 05/24/20 09:33 WBC MCV MCH MCHC RDW Lymph % (Auto) Lymph # (Auto) Seg Neutrophils % Seg Neuts % (Manual) Lymphocytes % (Manual) Seg Neutrophils # Seg Neutrophils # Man Lymphocytes # (Manual) D-Dimer ABG pH POC ABG pCO2 POC ABG pO2 ABG pO2 ABG HCO3 ABG O2 Saturation ABG Base Excess ABG Hemoglobin ABG Oxyhemoglobin ABG Sodium ABG Potassium ABG Chloride ABG Glucose Oxyhemoglobin Sodium Potassium Chloride Carbon Dioxide 34 H D BUN 28 H Creatinine 0.7 L Glucose 168 H POC Glucose Lactic Acid Calcium Magnesium Ferritin Total Bilirubin Direct Bilirubin AST ALT Alkaline Phosphatase Lactate Dehydrogenase C-Reactive Protein Total Protein Albumin Arterial Blood Glucose Arterial Blood Ionized Calcium Urine WBC (Auto) Coronavirus (PCR) SARS-CoV-2 IgG Ab Chest x-ray: image reviewed (bilateral pulmonary infiltrates stable. ) Allied health notes reviewed: nursing
--- NOTE | 2020-05-24 18:39 | Progress Note ---
Subjective Date of service: 05/24/20 Principal diagnosis: Ac hypoxemic resp failure; COVID-19; Severe Sepsis; Shaggy PNA; Alcohol Abuse Interval history: Brief history; 50 YO Male with Obesity, ETOH Dependence presents to ED for evaluation for shortness of breath, generalized weakness, fatigue, malaise, body aches, decreased exercise tolerance over the past 5 days. EMS was notified and upon arrival the patient was found to be in distress with a pulse oximetry of 76% on room air as well as fever to 103 F. In the ER chest x-ray and was found to have bilateral pneumonia. Patient admitted to medical floor and initiated on pneumonia protocol as well as COVID-19 protocol. Patient severe Covid pneumonia, with persistent severe hypoxemia requiring very high flow oxygen Today on continuous BiPAP, patient is in mild distress, critically ill with very poor prognosis. Patient was on high flow oxygen but could not be maintained above 90 hence patient intubated last night electively 05/17/2020; patient with severe COVID-19 pneumonia, in isolation room Patient is on high flow oxygen, and BiPAP 05/18/20; patient feels slightly better still hypoxic, requiring continuous high flow oxygen and BiPAP Respiratory team trying to wean 05/19/20; patient is severely hypoxemic requiring continuous BiPAP today, complains of generalized weakness Trying to wean off high flow oxygen, patient is in isolation 05/20/2020; patient remains on high flow oxygen/BiPAP/100% nonrebreather. Still is hypoxemic Has sinus tachycardia patient in mild distress Wean off high flow oxygen as tolerated, pulmonary critical following 05/21/20; patient is critically ill, on continuous BiPAP remains hypoxemic in mild distress Patient has severe Covid Pneumonia with persistent hypoxemia and poor prognosis 05/22/2020 Patient was intubated last night because of persistent hypoxemia Objective - Constitutional Vitals: Vital Signs - 12hr 05/24/20 05/24/20 05/24/20 06:30 06:40 06:50 Temperature Pulse Rate 105 H 101 H 100 H Pulse Rate [ From Monitor] Respiratory 20 16 19 Rate Blood Pressure 125/66 125/66 125/66 O2 Sat by Pulse 96 97 97 Oximetry 05/24/20 05/24/20 05/24/20 07:00 07:10 07:20 Temperature Pulse Rate 102 H 103 H 111 H Pulse Rate [ From Monitor] Respiratory 23 22 25 H Rate Blood Pressure 121/74 121/74 121/74 O2 Sat by Pulse 97 97 96 Oximetry 05/24/20 05/24/20 05/24/20 07:30 07:40 07:49 Temperature Pulse Rate 99 H 98 H 102 H Pulse Rate [ From Monitor] Respiratory 21 22 Rate Blood Pressure 121/74 121/74 121/74 O2 Sat by Pulse 95 99 97 Oximetry 05/24/20 05/24/20 05/24/20 07:50 08:00 08:01 Temperature 99 F 99.0 F Pulse Rate 96 H 94 H Pulse Rate [ 94 H From Monitor] Respiratory 17 19 Rate Blood Pressure 121/74 128/64 O2 Sat by Pulse 99 96 Oximetry 05/24/20 05/24/20 05/24/20 08:10 08:20 08:30 Temperature Pulse Rate 96 H 100 H 109 H Pulse Rate [ From Monitor] Respiratory 21 15 21 Rate Blood Pressure 128/64 128/64 128/64 O2 Sat by Pulse 98 97 94 Oximetry 05/24/20 05/24/20 05/24/20 08:40 08:50 09:00 Temperature Pulse Rate 101 H 106 H 105 H Pulse Rate [ From Monitor] Respiratory 18 16 15 Rate Blood Pressure 128/64 128/64 119/69 O2 Sat by Pulse 96 97 96 Oximetry 05/24/20 05/24/20 05/24/20 09:10 09:20 09:29 Temperature Pulse Rate 105 H 106 H 105 H Pulse Rate [ From Monitor] Respiratory 15 27 H Rate Blood Pressure 119/69 119/69 119/69 O2 Sat by Pulse 96 98 Oximetry 05/24/20 05/24/20 05/24/20 09:30 09:40 09:50 Temperature Pulse Rate 108 H 105 H 101 H Pulse Rate [ From Monitor] Respiratory 25 H 15 17 Rate Blood Pressure 119/69 119/69 119/69 O2 Sat by Pulse 97 96 97 Oximetry 05/24/20 05/24/20 05/24/20 10:00 10:10 10:20 Temperature Pulse Rate 102 H 98 H 95 H Pulse Rate [ From Monitor] Respiratory 11 L 14 15 Rate Blood Pressure 118/72 118/72 118/72 O2 Sat by Pulse 98 98 98 Oximetry 05/24/20 05/24/20 05/24/20 10:30 10:40 10:50 Temperature Pulse Rate 91 H 95 H 99 H Pulse Rate [ From Monitor] Respiratory 17 16 14 Rate Blood Pressure 118/72 118/72 118/72 O2 Sat by Pulse 99 99 98 Oximetry 05/24/20 05/24/20 05/24/20 11:00 11:10 11:20 Temperature Pulse Rate 100 H 97 H 96 H Pulse Rate [ From Monitor] Respiratory 18 12 16 Rate Blood Pressure 124/69 124/69 124/69 O2 Sat by Pulse 98 97 97 Oximetry 05/24/20 05/24/20 05/24/20 11:30 11:40 11:50 Temperature Pulse Rate 98 H 95 H 93 H Pulse Rate [ From Monitor] Respiratory 14 20 17 Rate Blood Pressure 124/69 124/69 124/69 O2 Sat by Pulse 97 97 97 Oximetry 05/24/20 05/24/20 05/24/20 12:00 12:10 12:20 Temperature 99.2 F Pulse Rate 97 H 93 H 90 Pulse Rate [ 100 H From Monitor] Respiratory 19 16 17 Rate Blood Pressure 127/65 127/65 127/65 O2 Sat by Pulse 96 97 96 Oximetry 05/24/20 05/24/20 05/24/20 12:30 12:40 12:50 Temperature Pulse Rate 96 H 99 H 96 H Pulse Rate [ From Monitor] Respiratory 16 15 13 Rate Blood Pressure 127/65 127/65 127/65 O2 Sat by Pulse 96 95 97 Oximetry 05/24/20 05/24/20 05/24/20 13:00 13:10 13:20 Temperature Pulse Rate 105 H 117 H 100 H Pulse Rate [ From Monitor] Respiratory 10 L 22 16 Rate Blood Pressure 113/68 113/68 113/68 O2 Sat by Pulse 97 89 96 Oximetry 05/24/20 05/24/20 05/24/20 13:30 13:40 13:50 Temperature Pulse Rate 101 H 102 H 101 H Pulse Rate [ From Monitor] Respiratory 15 15 14 Rate Blood Pressure 113/68 113/68 113/68 O2 Sat by Pulse 96 97 97 Oximetry 05/24/20 05/24/20 05/24/20 14:00 14:10 14:20 Temperature Pulse Rate 100 H 102 H 100 H Pulse Rate [ From Monitor] Respiratory 18 16 18 Rate Blood Pressure 109/70 109/70 109/70 O2 Sat by Pulse 97 97 97 Oximetry 05/24/20 05/24/20 05/24/20 14:30 14:40 14:50 Temperature Pulse Rate 103 H 104 H 105 H Pulse Rate [ From Monitor] Respiratory 16 15 15 Rate Blood Pressure 109/70 109/70 109/70 O2 Sat by Pulse 98 97 98 Oximetry 05/24/20 05/24/20 05/24/20 15:00 15:10 15:20 Temperature Pulse Rate 103 H 105 H 102 H Pulse Rate [ From Monitor] Respiratory 15 20 18 Rate Blood Pressure 109/67 109/67 109/67 O2 Sat by Pulse 97 96 98 Oximetry 05/24/20 05/24/20 05/24/20 15:30 15:40 15:50 Temperature Pulse Rate 102 H 99 H 102 H Pulse Rate [ From Monitor] Respiratory 17 20 15 Rate Blood Pressure 109/67 109/67 109/67 O2 Sat by Pulse 96 97 97 Oximetry 05/24/20 05/24/20 05/24/20 16:00 16:10 16:15 Temperature 98.9 F Pulse Rate 100 H 101 H 101 H Pulse Rate [ 100 H From Monitor] Respiratory 20 15 Rate Blood Pressure 109/67 112/69 O2 Sat by Pulse 97 97 96 Oximetry 05/24/20 05/24/20 05/24/20 16:20 16:30 16:40 Temperature Pulse Rate 101 H 104 H 104 H Pulse Rate [ From Monitor] Respiratory 17 17 16 Rate Blood Pressure 112/69 112/69 112/69 O2 Sat by Pulse 96 97 97 Oximetry 05/24/20 05/24/20 05/24/20 16:50 17:00 17:10 Temperature Pulse Rate 101 H 98 H 111 H Pulse Rate [ From Monitor] Respiratory 20 16 12 Rate Blood Pressure 112/69 114/72 114/72 O2 Sat by Pulse 97 97 95 Oximetry - Labs CBC & Chem 7: 05/22/20 07:53 05/24/20 09:33 Labs: Abnormal lab results 05/24/20 05/24/20 05/24/20 Range/Units 03:07 04:08 09:33 ABG pO2 73.4 L (80.0-90.0) mm Hg ABG HCO3 34.0 H (20.0-26.0) mmol/L ABG Base Excess 7.7 H (-2.0-3.0) mmol/L ABG Hemoglobin 12.1 L (14.0-18.0) gm/dl Oxyhemoglobin 94.3 L (95.0-99.0) % Carbon Dioxide 34 H D (22-30) mmol/L BUN 28 H (9-20) mg/dL Creatinine 0.7 L (0.8-1.3) mg/dL Glucose 168 H (75-100) mg/dL POC Glucose 155 H (70-105) mg/dL 05/24/20 05/24/20 Range/Units 12:21 17:52 ABG pO2 (80.0-90.0) mm Hg ABG HCO3 (20.0-26.0) mmol/L ABG Base Excess (-2.0-3.0) mmol/L ABG Hemoglobin (14.0-18.0) gm/dl Oxyhemoglobin (95.0-99.0) % Carbon Dioxide (22-30) mmol/L BUN (9-20) mg/dL Creatinine (0.8-1.3) mg/dL Glucose (75-100) mg/dL POC Glucose 173 H 164 H (70-105) mg/dL
--- NOTE | 2020-05-25 02:58 | XRay Report ---
CHEST 1 VIEW 05/25/2020 1:48 AM INDICATION / CLINICAL INFORMATION: follow up respiratory failure. COMPARISON: 05/24/2020 FINDINGS: SUPPORT DEVICES: Stable, satisfactory device positioning. HEART / MEDIASTINUM: Stable. LUNGS / PLEURA: Stable patchy bilateral opacities. No pneumothorax. ADDITIONAL FINDINGS: No significant additional findings. IMPRESSION: 1. No significant change. Signer Name: Lance Lynch MD Signed: 05/25/2020 2:53 AM Workstation Name: [id number]
[2020-05-25] MEDS: methylPREDNISolone Sod Succinate 40 MG/1 ML INJ IV SCH ×2 (06:55→18:00)
[2020-05-25] MEDS: fentaNYL DRIP Premix 2,000 MCG/100 ML BAG IV SCH ×3 (06:56→18:21)
[2020-05-25 09:11] LABS: Hematocrit 36.1 % (35.5-45.6); Mean Corpuscular HGB Conc 33 % (32-34); Mean Corpuscular Volume 99 fl (84-94); Platelet Count 152 K/mm3 (140-440); Red Blood Count 3.64 M/mm3 (3.65-5.03); Red Cell Distribution Width 13.6 % (13.2-15.2)
[2020-05-25] MEDS: METOPROLOL TARTRATE 25 MG TAB PO SCH ×2 (09:40→21:43)
[2020-05-25] MEDS: FAMOTIDINE 20 MG/2 ML INJ IV SCH (09:41)
[2020-05-25] MEDS: FOLIC ACID 1 MG TAB PO SCH (09:41)
[2020-05-25] MEDS: ENOXAPARIN 120 MG/0.8 ML INJ SUB-Q SCH ×2 (09:44→21:43)
[2020-05-25 12:21] LABS: Blood Urea Nitrogen 25 mg/dL (9-20); Calcium 8.8 mg/dL (8.4-10.2); Hemolysis Index 12
[2020-05-25 12:26] LABS: BUN/Creatinine Ratio 36
--- NOTE | 2020-05-25 13:36 | Progress Note ---
Assessment and Plan Cultures: Blood culture 04/28/2020 no growth today SARS CoV2 PCR positive Sputum and urine culture with no significant growth Assessment: 50 years old male with history of alcohol dependence and obesity admitted on 05/09/2020 due to 5-day history of generalized malaise, fatigue, body aches, dyspnea exertion, cough and shortness of breath, tested positive for COVID-19 2 days before admission: #Severe sepsis: likely due to bilateral pneumonia from COVID. #Severe COVID pneumonia: Chest x-ray with bilateral patchy infiltrates. SARS-CoV-2 PCR positive. Inflammatory markers markedly elevated, D-dimer 10,000, ferritin 38,000. Noted elevated procalcitonin likely due to elevated creatinine, however treated for bacterial component given severe sepsis. SARS CoV-2 IgG positive patient is NOT a candidate for COVID convalescent plasma. Completed remdesivir. #Acute hypoxemic respiratory failure: intubated on 05/22/2020 #Elevated LFTs: from COVID #Elevated D-dimer: Venous ultrasound no DVT. Recommendations: -continue steroids: on Solu-Medrol per ICU -Monitor inflammatory markers - ferritin, Ddimer, CRP, LDH every 2-3 days -Continue anticoagulation per System Protocol based on d-dimer Julio Bennett MD, FACP [facility] ([facility] O: [phone] F: [phone] Subjective Date of service: 05/25/20 Principal diagnosis: Ac hypoxemic resp failure; COVID-19; Severe Sepsis; Shaggy PNA; Alcohol Abuse Interval history: No fever. Remains on the vent. Objective - Exam Narrative Exam: Physical Exam (reviewed in chart due to PPE conservation and minimize risk of transmission) Constitutional: limited due to PPE conservation strategy Head, Ears, Nose: limited due to PPE conservation strategy Eyes: limited due to PPE conservation strategy Neck: limited due to PPE conservation strategy Oral: limited due to PPE conservation strategy Cardiovascular: limited due to PPE conservation strategy Respiratory: limited due to PPE conservation strategy GI: limited due to PPE conservation strategy Musculoskeletal: limited due to PPE conservation strategy Skin: limited due to PPE conservation strategy Hem/Lymphatic: limited due to PPE conservation strategy Psych: limited due to PPE conservation strategy Neurological: limited due to PPE conservation strategy - Constitutional Vitals: Vital Signs Temp Pulse Resp BP Pulse Ox 99 F 118 H 20 142/79 94 05/25/20 12:00 05/25/20 13:00 05/25/20 13:00 05/25/20 13:00 05/25/20 13:00 Temperature -Last 24 Hours Temperature 99 F Temperature 98.7 F Temperature 98.6 F Temperature 98.4 F Temperature 98.7 F Temperature 98.9 F - Labs CBC & Chem 7: 05/25/20 08:37 05/25/20 08:37 Labs: Abnormal lab results 05/24/20 05/24/20 05/24/20 Range/Units 12:21 17:52 23:47 WBC (4.5-11.0) K/mm3 RBC (3.65-5.03) M/mm3 MCV (84-94) fl MCH (28-32) pg POC ABG pCO2 (32.0-48.0) mmHg ABG Potassium (3.40-4.50) mmol/L ABG Glucose (65-95) mg/dL Chloride (98-107) mmol/L Carbon Dioxide (22-30) mmol/L BUN (9-20) mg/dL Creatinine (0.8-1.3) mg/dL Glucose (75-100) mg/dL POC Glucose 173 H 164 H 171 H (70-105) mg/dL Arterial Blood Glucose (65-95) mg/dL 05/25/20 05/25/20 05/25/20 Range/Units 04:29 05:46 08:37 WBC 12.0 H (4.5-11.0) K/mm3 RBC 3.64 L (3.65-5.03) M/mm3 MCV 99 H (84-94) fl MCH 33 H (28-32) pg POC ABG pCO2 68.6 H (32.0-48.0) mmHg ABG Potassium 4.7 H (3.40-4.50) mmol/L ABG Glucose 226 H (65-95) mg/dL Chloride (98-107) mmol/L Carbon Dioxide (22-30) mmol/L BUN (9-20) mg/dL Creatinine (0.8-1.3) mg/dL Glucose (75-100) mg/dL POC Glucose 201 H (70-105) mg/dL Arterial Blood Glucose 226 H (65-95) mg/dL 05/25/20 Range/Units 08:37 WBC (4.5-11.0) K/mm3 RBC (3.65-5.03) M/mm3 MCV (84-94) fl MCH (28-32) pg POC ABG pCO2 (32.0-48.0) mmHg ABG Potassium (3.40-4.50) mmol/L ABG Glucose (65-95) mg/dL Chloride 97.3 L (98-107) mmol/L Carbon Dioxide 35 H (22-30) mmol/L BUN 25 H (9-20) mg/dL Creatinine 0.7 L (0.8-1.3) mg/dL Glucose 191 H (75-100) mg/dL POC Glucose (70-105) mg/dL Arterial Blood Glucose (65-95) mg/dL
--- NOTE | 2020-05-25 15:04 | Progress Note ---
Assessment and Plan Acute hypoxemic respiratory failure due to COVID-19 Severe Sepsis Bilateral pneumonia Acute kidney injury (SEN) with acute tubular necrosis (ATN) Alcohol dependence Elevated liver function tests - continue to wean supplemental oxygen for target O2 sat's > 92% acutely - keep peep at 16 - neurology evaluation ongoing - continue care as below otherwise; - continue Daily SAT and SBT assessment as tolerated - VAP bundle addressed - continue lung protective strategies - continue bronchodilators with pulmonary hygiene per RT - wean per pulmonary driven protocols otherwise - accuchecks with glycemic control per SSI (While critically ill target blood glucose of 140-180 mg/dL; avoid hypoglycemia) - sedation prn for target RASS -1 to -2 - continue enteral nutritional support at goal rate as tolerated - continue airborne and contact isolation - follow repeat COVID-19 testing - continue Zinc & Vit C supplementaion - continue systemic steroids for Asthma / severe COVID infection - Prone positioning as tolerated - continue empiric full dose anticoagulation re: elevated d-dimers / hypercoagulable state - NOT a candidate for COVID convalescent plasma - continue systemic steroids X >/= 10 days - complete remdesivir dosing (total 5 days) - Monitor liver function test on Remdesivir - trend inflammatory markers - ferritin, Ddimer, CRP, LDH; to aid clinical decision making - empiric AB's coverage per ID rec's otherwise - accuchecks with glycemic control per SSI (While critically ill target blood glucose of 140-180 mg/dL; avoid hypoglycemia) - avoid nephrotoxins, renally dose all medications - continue to avoid benzodiazepine's, reduce the possibility of delirium - prn analgesia per CPOT score - Maintenance of sleep-wake cycle, avoid delirium - continue to avoid benzodiazepine's, reduce the possibility of delirium - aspiration precautions - G.I. & VTE prophylaxis - PT/OT/ROM exercises - continue mobility protocols for pressure ulcer prophylaxis - Monitor hemodynamics closely - continue other care per attending / other consultants - discharge planning ongoing concurrently .... Re-evaluate in am & prn CONDITION: CRITICAL PROGNOSIS: GUARDED CODE STATUS: FULL CODE The high probability of a clinically significant, sudden or life-threatening deterioration of the [respiratory, cardiovascular, hematologic & neurologic] system(s) required my full and direct attention, intervention and personal management. The aggregate critical care time was [32] minutes without overlap. Time includes spent on; [x] Data Review and interpretation [x] Patient assessment and monitoring of vital signs [x] Documentation [x] Medication orders and management Subjective Date of service: 05/25/20 Principal diagnosis: Ac hypoxemic resp failure; COVID-19; Severe Sepsis; Shaggy PNA; Alcohol Abuse Interval history: Patient is seen today for: Acute hypoxemic respiratory failure due to COVID-19; Severe Sepsis; Bilateral pneumonia; Alcohol dependence; Elevated liver function tests Seen and examined at bedside; 24hour events reviewed; nursing and respiratory care staff consulted; no adverse overnight events reported to me; resting in bed; remains on MVS; FiO2 up to 80% and oxygenation remains labile; sedated but responds to voice; no emesis or overt aspiration Objective Vital Signs - 12hr 05/25/20 05/25/20 05/25/20 03:10 03:20 03:30 Temperature Pulse Rate 100 H 101 H 106 H Pulse Rate [ From Monitor] Respiratory 20 20 20 Rate Blood Pressure 118/71 118/71 118/71 O2 Sat by Pulse 98 98 98 Oximetry 05/25/20 05/25/20 05/25/20 03:40 03:50 04:00 Temperature 98.6 F Pulse Rate 99 H 107 H 102 H Pulse Rate [ 111 H From Monitor] Respiratory 20 20 15 Rate Blood Pressure 125/70 125/70 122/70 O2 Sat by Pulse 98 98 98 Oximetry 05/25/20 05/25/20 05/25/20 04:10 04:20 04:30 Temperature Pulse Rate 107 H 95 H 97 H Pulse Rate [ From Monitor] Respiratory 20 20 19 Rate Blood Pressure 122/70 122/70 122/70 O2 Sat by Pulse 98 97 98 Oximetry 05/25/20 05/25/20 05/25/20 04:40 04:50 05:00 Temperature Pulse Rate 97 H 97 H 130 H Pulse Rate [ From Monitor] Respiratory 18 17 25 H Rate Blood Pressure 122/70 122/70 126/73 O2 Sat by Pulse 98 97 94 Oximetry 05/25/20 05/25/20 05/25/20 05:10 05:20 05:30 Temperature Pulse Rate 104 H 107 H 122 H Pulse Rate [ From Monitor] Respiratory 14 14 18 Rate Blood Pressure 126/73 126/73 126/73 O2 Sat by Pulse 94 95 95 Oximetry 05/25/20 05/25/20 05/25/20 05:40 05:50 06:00 Temperature Pulse Rate 107 H 163 H 121 H Pulse Rate [ From Monitor] Respiratory 14 23 12 Rate Blood Pressure 126/73 126/73 135/88 O2 Sat by Pulse 96 94 93 Oximetry 05/25/20 05/25/20 05/25/20 06:10 06:20 06:30 Temperature Pulse Rate 108 H 117 H 109 H Pulse Rate [ From Monitor] Respiratory 17 12 20 Rate Blood Pressure 135/88 126/73 126/73 O2 Sat by Pulse 95 97 99 Oximetry 05/25/20 05/25/20 05/25/20 06:40 06:50 07:00 Temperature Pulse Rate 110 H 110 H 111 H Pulse Rate [ From Monitor] Respiratory 20 20 20 Rate Blood Pressure 126/73 135/88 111/76 O2 Sat by Pulse 98 99 99 Oximetry 05/25/20 05/25/20 05/25/20 07:10 07:20 07:30 Temperature Pulse Rate 114 H 114 H 113 H Pulse Rate [ From Monitor] Respiratory 20 20 20 Rate Blood Pressure 111/76 111/76 111/76 O2 Sat by Pulse 100 99 100 Oximetry 05/25/20 05/25/20 05/25/20 07:40 07:50 07:58 Temperature Pulse Rate 111 H 108 H 106 H Pulse Rate [ From Monitor] Respiratory 20 20 Rate Blood Pressure 111/76 111/76 111/76 O2 Sat by Pulse 100 100 99 Oximetry 05/25/20 05/25/20 05/25/20 08:00 08:10 08:20 Temperature 98.7 F Pulse Rate 107 H 105 H 104 H Pulse Rate [ 107 H From Monitor] Respiratory 20 20 20 Rate Blood Pressure 112/67 112/67 112/67 O2 Sat by Pulse 99 99 99 Oximetry 05/25/20 05/25/20 05/25/20 08:30 08:40 08:50 Temperature Pulse Rate 104 H 103 H 105 H Pulse Rate [ From Monitor] Respiratory 20 20 20 Rate Blood Pressure 112/67 112/67 112/67 O2 Sat by Pulse 99 99 99 Oximetry 05/25/20 05/25/20 05/25/20 09:00 09:10 09:20 Temperature Pulse Rate 105 H 105 H 104 H Pulse Rate [ From Monitor] Respiratory 20 20 20 Rate Blood Pressure 112/67 112/67 112/67 O2 Sat by Pulse 98 99 99 Oximetry 05/25/20 05/25/2005/25/20 09:30 09:40 09:50 Temperature Pulse Rate 99 H 101 H 102 H Pulse Rate [ From Monitor] Respiratory 20 20 20 Rate Blood Pressure 112/67 112/67 111/68 O2 Sat by Pulse 99 99 98 Oximetry 05/25/20 05/25/20 05/25/20 10:00 10:10 10:20 Temperature Pulse Rate 99 H 92 H 92 H Pulse Rate [ From Monitor] Respiratory 20 20 20 Rate Blood Pressure 108/65 108/65 111/68 O2 Sat by Pulse 97 97 97 Oximetry 05/25/20 05/25/20 05/25/20 10:30 10:40 10:50 Temperature Pulse Rate 94 H 92 H 95 H Pulse Rate [ From Monitor] Respiratory 20 20 20 Rate Blood Pressure 111/68 111/68 111/68 O2 Sat by Pulse 97 97 97 Oximetry 05/25/20 05/25/20 05/25/20 11:00 11:10 11:20 Temperature Pulse Rate 86 91 H 94 H Pulse Rate [ From Monitor] Respiratory 20 20 20 Rate Blood Pressure 105/72 105/72 105/72 O2 Sat by Pulse 97 96 97 Oximetry 05/25/20 05/25/20 05/25/20 11:30 11:40 11:50 Temperature Pulse Rate 89 127 H 123 H Pulse Rate [ From Monitor] Respiratory 20 20 18 Rate Blood Pressure 105/72 105/72 105/72 O2 Sat by Pulse 97 95 94 Oximetry 05/25/20 05/25/20 05/25/20 12:00 12:10 12:20 Temperature 99 F Pulse Rate 131 H 136 H 138 H Pulse Rate [ 122 H From Monitor] Respiratory 13 16 13 Rate Blood Pressure 105/72 136/96 136/96 O2 Sat by Pulse 93 94 90 Oximetry 05/25/20 05/25/20 05/25/20 12:24 12:30 12:40 Temperature Pulse Rate 131 H 133 H 129 H Pulse Rate [ From Monitor] Respiratory 14 12 Rate Blood Pressure 136/96 136/96 136/96 O2 Sat by Pulse 96 90 92 Oximetry 05/25/20 05/25/20 12:50 13:00 Temperature Pulse Rate 132 H 118 H Pulse Rate [ From Monitor] Respiratory 12 20 Rate Blood Pressure 136/96 142/79 O2 Sat by Pulse 91 94 Oximetry Constitutional: no acute distress, asleep, other (middle aged obese male without significant ventilator dyssynchrony) Eyes: non-icteric ENT: oropharynx moist, other (ETT 24 cm CHILO) Neck: supple, no JVD Effort: normal, mildly labored Ascultation: Bilateral: diminished breath sounds, rhonchi Percussion: Bilateral: not dull Cardiovascular: regular rate and rhythm Gastrointestinal: normoactive bowel sounds, soft, non-tender, non-distended (protuberant) Integumentary: normal Extremities: no cyanosis, no edema, pulses normal, no ischemia or petechiae Neurologic: non-focal exam, pupils equal and round, CN II-XII normal, motor strength normal and, other (sedated) Psychiatric: other (sedated) CBC and BMP: 05/25/20 08:37 05/25/20 08:37 ABG, PT/INR, D-dimer: ABG ABG pH 7.355 (7.320-7.450) 05/25/20 04:29 POC ABG pCO2 68.6 mmHg (32.0-48.0) H 05/25/20 04:29 ABG pCO2 56.0 mm Hg 05/24/20 04:08 POC ABG pO2 101.8 mmHg (83-108) 05/25/20 04:29 ABG pO2 73.4 mm Hg (80.0-90.0) L 05/24/20 04:08 POC ABG HCO3 37.5 05/25/20 04:29 ABG O2 Saturation 96.5 % (95.0-99.0) 05/24/20 04:08 PT/INR, D-dimer D-Dimer 1887.82 ng/mlDDU (0-234) H 05/20/20 08:16 Abnormal lab findings: Abnormal Labs 05/09/20 05/09/20 05/09/20 12:59 12:59 12:59 WBC 11.8 H RBC MCV 96 H MCH 34 H MCHC 35 H RDW Lymph % (Auto) 6.9 L Lymph # (Auto) 0.8 L Seg Neutrophils % 87.5 H Seg Neuts % (Manual) Lymphocytes % (Manual) Seg Neutrophils # 10.3 H Seg Neutrophils # Man Lymphocytes # (Manual) D-Dimer ABG pH POC ABG pCO2 POC ABG pO2 ABG pO2 ABG HCO3 ABG O2 Saturation ABG Base Excess ABG Hemoglobin ABG Oxyhemoglobin ABG Sodium ABG Potassium ABG Chloride ABG Glucose Oxyhemoglobin Sodium 130 L Potassium 3.5 L Chloride 86.4 L Carbon Dioxide BUN 33 H Creatinine 2.3 H Glucose 156 H POC Glucose Lactic Acid Calcium Magnesium Ferritin Total Bilirubin 3.40 H Direct Bilirubin 1.7 H AST 385 H ALT 134 H Alkaline Phosphatase Lactate Dehydrogenase C-Reactive Protein Total Protein Albumin 3.0 L Arterial Blood Glucose Arterial Blood Ionized Calcium Urine WBC (Auto) Coronavirus (PCR) SARS-CoV-2 IgG Ab 05/09/20 05/09/20 05/09/20 12:59 12:59 12:59 WBC RBC MCV MCH MCHC RDW Lymph % (Auto) Lymph # (Auto) Seg Neutrophils % Seg Neuts % (Manual) Lymphocytes % (Manual) Seg Neutrophils # Seg Neutrophils # Man Lymphocytes # (Manual) D-Dimer 3242.51 H ABG pH POC ABG pCO2 POC ABG pO2 ABG pO2 ABG HCO3 ABG O2 Saturation ABG Base Excess ABG Hemoglobin ABG Oxyhemoglobin ABG Sodium ABG Potassium ABG Chloride ABG Glucose Oxyhemoglobin Sodium Potassium Chloride Carbon Dioxide BUN Creatinine Glucose 158 H POC Glucose Lactic Acid 3.50 H* Calcium Magnesium Ferritin Total Bilirubin Direct Bilirubin AST ALT Alkaline Phosphatase Lactate Dehydrogenase 2166 H C-Reactive Protein 39.00 H Total Protein Albumin Arterial Blood Glucose Arterial Blood Ionized Calcium Urine WBC (Auto) Coronavirus (PCR) SARS-CoV-2 IgG Ab 05/09/20 05/09/20 05/09/20 12:59 14:20 14:20 WBC RBC MCV MCH MCHC RDW Lymph % (Auto) Lymph # (Auto) Seg Neutrophils % Seg Neuts % (Manual) Lymphocytes % (Manual) Seg Neutrophils # Seg Neutrophils # Man Lymphocytes # (Manual) D-Dimer 2861.78 H ABG pH POC ABG pCO2 POC ABG pO2 ABG pO2 ABG HCO3 ABG O2 Saturation ABG Base Excess ABG Hemoglobin ABG Oxyhemoglobin ABG Sodium ABG Potassium ABG Chloride ABG Glucose Oxyhemoglobin Sodium Potassium Chloride Carbon Dioxide BUN Creatinine Glucose POC Glucose Lactic Acid 2.20 H* Calcium Magnesium Ferritin 31645.0 H Total Bilirubin Direct Bilirubin AST ALT Alkaline Phosphatase Lactate Dehydrogenase C-Reactive Protein Total Protein Albumin Arterial Blood Glucose Arterial Blood Ionized Calcium Urine WBC (Auto) Coronavirus (PCR) SARS-CoV-2 IgG Ab 05/09/20 05/09/20 05/09/20 14:20 14:20 15:56 WBC RBC MCV MCH MCHC RDW Lymph % (Auto) Lymph # (Auto) Seg Neutrophils % Seg Neuts % (Manual) Lymphocytes % (Manual) Seg Neutrophils # Seg Neutrophils # Man Lymphocytes # (Manual) D-Dimer ABG pH POC ABG pCO2 POC ABG pO2 57.3 L ABG pO2 ABG HCO3 ABG O2 Saturation ABG Base Excess ABG Hemoglobin ABG Oxyhemoglobin 86.3 L ABG Sodium 129.9 L ABG Potassium ABG Chloride ABG Glucose 146 H Oxyhemoglobin Sodium Potassium Chloride Carbon Dioxide BUN Creatinine Glucose 143 H POC Glucose Lactic Acid Calcium Magnesium Ferritin 32610.0 H Total Bilirubin Direct Bilirubin AST ALT Alkaline Phosphatase Lactate Dehydrogenase 1953 H C-Reactive Protein 33.50 H Total Protein Albumin Arterial Blood Glucose 146 H Arterial Blood Ionized Calcium 3.9 L Urine WBC (Auto) Coronavirus (PCR) SARS-CoV-2 IgG Ab 05/10/20 05/10/20 05/10/20 10:32 10:32 18:50 WBC 15.4 H RBC MCV 97 H MCH 33 H MCHC RDW 13.1 L Lymph % (Auto) Lymph # (Auto) Seg Neutrophils % Seg Neuts % (Manual) 89.0 H Lymphocytes % (Manual) 8.0 L Seg Neutrophils # Seg Neutrophils # Man 13.7 H Lymphocytes # (Manual) D-Dimer ABG pH POC ABG pCO2 POC ABG pO2 ABG pO2 ABG HCO3 ABG O2 Saturation ABG Base Excess ABG Hemoglobin ABG Oxyhemoglobin ABG Sodium ABG Potassium ABG Chloride ABG Glucose Oxyhemoglobin Sodium 136 L Potassium Chloride 97.4 L Carbon Dioxide BUN 37 H Creatinine 1.7 H Glucose 209 H POC Glucose Lactic Acid Calcium Magnesium Ferritin > 2000.0 H Total Bilirubin Direct Bilirubin AST ALT Alkaline Phosphatase Lactate Dehydrogenase C-Reactive Protein Total Protein Albumin Arterial Blood Glucose Arterial Blood Ionized Calcium Urine WBC (Auto) Coronavirus (PCR) SARS-CoV-2 IgG Ab 05/10/20 05/10/20 05/10/20 18:50 19:00 Unknown WBC RBC MCV MCH MCHC RDW Lymph % (Auto) Lymph # (Auto) Seg Neutrophils % Seg Neuts % (Manual) Lymphocytes % (Manual) Seg Neutrophils # Seg Neutrophils # Man Lymphocytes # (Manual) D-Dimer > 27316 H ABG pH POC ABG pCO2 POC ABG pO2 ABG pO2 ABG HCO3 ABG O2 Saturation ABG Base Excess ABG Hemoglobin ABG Oxyhemoglobin ABG Sodium ABG Potassium ABG Chloride ABG Glucose Oxyhemoglobin Sodium Potassium Chloride Carbon Dioxide BUN Creatinine Glucose POC Glucose Lactic Acid Calcium Magnesium Ferritin Total Bilirubin Direct Bilirubin AST ALT Alkaline Phosphatase Lactate Dehydrogenase 1879 H C-Reactive Protein 24.80 H Total Protein Albumin Arterial Blood Glucose Arterial Blood Ionized Calcium Urine WBC (Auto) 11.0 H Coronavirus (PCR) SARS-CoV-2 IgG Ab 05/10/20 05/11/20 05/11/20 Unknown 07:30 07:30 WBC RBC MCV MCH MCHC RDW Lymph % (Auto) Lymph # (Auto) Seg Neutrophils % Seg Neuts % (Manual) Lymphocytes % (Manual) Seg Neutrophils # Seg Neutrophils # Man Lymphocytes # (Manual) D-Dimer > 2000 H ABG pH POC ABG pCO2 POC ABG pO2 ABG pO2 ABG HCO3 ABG O2 Saturation ABG Base Excess ABG Hemoglobin ABG Oxyhemoglobin ABG Sodium ABG Potassium ABG Chloride ABG Glucose Oxyhemoglobin Sodium Potassium Chloride 96.3 L Carbon Dioxide BUN 36 H Creatinine Glucose 161 H POC Glucose Lactic Acid Calcium 8.3 L Magnesium Ferritin Total Bilirubin 1.50 H Direct Bilirubin 0.6 H AST 178 H ALT 111 H Alkaline Phosphatase Lactate Dehydrogenase C-Reactive Protein Total Protein Albumin 3.0 L Arterial Blood Glucose Arterial Blood Ionized Calcium Urine WBC (Auto) Coronavirus (PCR) Positive A SARS-CoV-2 IgG Ab 05/11/20 05/11/20 05/11/20 07:30 07:30 07:30 WBC RBC MCV MCH MCHC RDW Lymph % (Auto) Lymph # (Auto) Seg Neutrophils % Seg Neuts % (Manual) Lymphocytes % (Manual) Seg Neutrophils # Seg Neutrophils # Man Lymphocytes # (Manual) D-Dimer ABG pH POC ABG pCO2 POC ABG pO2 ABG pO2 ABG HCO3 ABG O2 Saturation ABG Base Excess ABG Hemoglobin ABG Oxyhemoglobin ABG Sodium ABG Potassium ABG Chloride ABG Glucose Oxyhemoglobin Sodium Potassium Chloride Carbon Dioxide BUN Creatinine Glucose POC Glucose Lactic Acid Calcium Magnesium Ferritin 92032.0 H Total Bilirubin Direct Bilirubin AST ALT Alkaline Phosphatase Lactate Dehydrogenase 1523 H C-Reactive Protein 12.90 H Total Protein Albumin Arterial Blood Glucose Arterial Blood Ionized Calcium Urine WBC (Auto) Coronavirus (PCR) SARS-CoV-2 IgG Ab Reactive A 05/13/20 05/13/20 05/15/20 05:20 05:20 08:15 WBC RBC MCV MCH MCHC RDW Lymph % (Auto) Lymph # (Auto) Seg Neutrophils % Seg Neuts % (Manual) Lymphocytes % (Manual) Seg Neutrophils # Seg Neutrophils # Man Lymphocytes # (Manual) D-Dimer > 31739 H 5318.28 H ABG pH POC ABG pCO2 POC ABG pO2 ABG pO2 ABG HCO3 ABG O2 Saturation ABG Base Excess ABG Hemoglobin ABG Oxyhemoglobin ABG Sodium ABG Potassium ABG Chloride ABG Glucose Oxyhemoglobin Sodium Potassium Chloride Carbon Dioxide 32 H BUN 30 H Creatinine Glucose 156 H POC Glucose Lactic Acid Calcium Magnesium 2.60 H Ferritin Total Bilirubin 1.40 H Direct Bilirubin AST 121 H ALT 119 H Alkaline Phosphatase Lactate Dehydrogenase 957 H C-Reactive Protein 4.00 H Total Protein Albumin 3.0 L Arterial Blood Glucose Arterial Blood Ionized Calcium Urine WBC (Auto) Coronavirus (PCR) SARS-CoV-2 IgG Ab 05/15/20 05/15/20 05/15/20 08:15 08:15 08:15 WBC 12.4 H RBC MCV 98 H MCH 33 H MCHC RDW Lymph % (Auto) 9.7 L Lymph # (Auto) Seg Neutrophils % 86.8 H Seg Neuts % (Manual) Lymphocytes % (Manual) Seg Neutrophils # 10.8 H Seg Neutrophils # Man Lymphocytes # (Manual) D-Dimer ABG pH POC ABG pCO2 POC ABG pO2 ABG pO2 ABG HCO3 ABG O2 Saturation ABG Base Excess ABG Hemoglobin ABG Oxyhemoglobin ABG Sodium ABG Potassium ABG Chloride ABG Glucose Oxyhemoglobin Sodium Potassium Chloride 94.8 L Carbon Dioxide 32 H BUN 22 H Creatinine Glucose 115 H POC Glucose Lactic Acid Calcium 8.3 L Magnesium Ferritin 2494.0 H Total Bilirubin Direct Bilirubin AST 73 H ALT 121 H Alkaline Phosphatase Lactate Dehydrogenase 835 H C-Reactive Protein 3.40 H Total Protein 6.1 L Albumin 3.0 L Arterial Blood Glucose Arterial Blood Ionized Calcium Urine WBC (Auto) Coronavirus (PCR) SARS-CoV-2 IgG Ab 05/17/20 05/17/20 05/17/20 05:50 05:50 05:50 WBC RBC MCV MCH MCHC RDW Lymph % (Auto) Lymph # (Auto) Seg Neutrophils % Seg Neuts % (Manual) Lymphocytes % (Manual) Seg Neutrophils # Seg Neutrophils # Man Lymphocytes # (Manual) D-Dimer 2911.42 H ABG pH POC ABG pCO2 POC ABG pO2 ABG pO2 ABG HCO3 ABG O2 Saturation ABG Base Excess ABG Hemoglobin ABG Oxyhemoglobin ABG Sodium ABG Potassium ABG Chloride ABG Glucose Oxyhemoglobin Sodium 136 L Potassium Chloride 96.0 L Carbon Dioxide 34 H BUN 22 H Creatinine Glucose 140 H POC Glucose Lactic Acid Calcium Magnesium Ferritin 2082.0 H Total Bilirubin Direct Bilirubin AST ALT 75 H Alkaline Phosphatase Lactate Dehydrogenase 601 H C-Reactive Protein 2.70 H Total Protein Albumin 2.9 L Arterial Blood Glucose Arterial Blood Ionized Calcium Urine WBC (Auto) Coronavirus (PCR) SARS-CoV-2 IgG Ab 05/17/20 05/18/20 05/20/20 05:50 12:22 08:16 WBC RBC MCV 98 H MCH 33 H MCHC RDW Lymph % (Auto) 8.0 L Lymph # (Auto) 0.8 L Seg Neutrophils % 89.3 H Seg Neuts % (Manual) Lymphocytes % (Manual) Seg Neutrophils # 8.8 H Seg Neutrophils # Man Lymphocytes # (Manual) D-Dimer 1887.82 H ABG pH POC ABG pCO2 POC ABG pO2 ABG pO2 ABG HCO3 ABG O2 Saturation ABG Base Excess ABG Hemoglobin ABG Oxyhemoglobin ABG Sodium ABG Potassium ABG Chloride ABG Glucose Oxyhemoglobin Sodium Potassium Chloride Carbon Dioxide BUN Creatinine Glucose POC Glucose 178 H Lactic Acid Calcium Magnesium Ferritin Total Bilirubin Direct Bilirubin AST ALT Alkaline Phosphatase Lactate Dehydrogenase C-Reactive Protein Total Protein Albumin Arterial Blood Glucose Arterial Blood Ionized Calcium Urine WBC (Auto) Coronavirus (PCR) SARS-CoV-2 IgG Ab 05/20/20 05/20/20 05/21/20 08:16 08:16 21:10 WBC RBC MCV MCH MCHC RDW Lymph % (Auto) Lymph # (Auto) Seg Neutrophils % Seg Neuts % (Manual) Lymphocytes % (Manual) Seg Neutrophils # Seg Neutrophils # Man Lymphocytes # (Manual) D-Dimer ABG pH 7.483 H POC ABG pCO2 POC ABG pO2 ABG pO2 50.0 L ABG HCO3 27.0 H ABG O2 Saturation 86.2 L ABG Base Excess 3.7 H ABG Hemoglobin ABG Oxyhemoglobin ABG Sodium ABG Potassium ABG Chloride ABG Glucose Oxyhemoglobin 84.2 L Sodium Potassium Chloride Carbon Dioxide BUN Creatinine Glucose POC Glucose Lactic Acid Calcium Magnesium Ferritin 1960.0 H Total Bilirubin Direct Bilirubin AST ALT Alkaline Phosphatase Lactate Dehydrogenase 705 H C-Reactive Protein 3.10 H Total Protein Albumin Arterial Blood Glucose Arterial Blood Ionized Calcium Urine WBC (Auto) Coronavirus (PCR) SARS-CoV-2 IgG Ab 05/22/20 05/22/20 05/22/20 04:01 07:53 07:53 WBC 19.2 H RBC MCV 98 H MCH 34 H MCHC RDW Lymph % (Auto) Lymph # (Auto) Seg Neutrophils % Seg Neuts % (Manual) 96.0 H Lymphocytes % (Manual) 1.0 L Seg Neutrophils # Seg Neutrophils # Man 18.4 H Lymphocytes # (Manual) 0.2 L D-Dimer ABG pH POC ABG pCO2 53.8 H POC ABG pO2 125.5 H ABG pO2 ABG HCO3 ABG O2 Saturation ABG Base Excess ABG Hemoglobin ABG Oxyhemoglobin ABG Sodium 131.8 L ABG Potassium 4.8 H ABG Chloride 94.0 L ABG Glucose 163 H Oxyhemoglobin Sodium 131 L Potassium Chloride 93.4 L Carbon Dioxide BUN 40 H Creatinine Glucose 176 H POC Glucose Lactic Acid Calcium Magnesium 2.70 H Ferritin Total Bilirubin 1.80 H Direct Bilirubin AST 45 H ALT 116 H Alkaline Phosphatase 181 H Lactate Dehydrogenase C-Reactive Protein Total Protein Albumin 2.6 L Arterial Blood Glucose 163 H Arterial Blood Ionized Calcium 4.5 L Urine WBC (Auto) Coronavirus (PCR) SARS-CoV-2 IgG Ab 05/23/20 05/24/20 05/24/20 04:17 03:07 04:08 WBC RBC MCV MCH MCHC RDW Lymph % (Auto) Lymph # (Auto) Seg Neutrophils % Seg Neuts % (Manual) Lymphocytes % (Manual) Seg Neutrophils # Seg Neutrophils # Man Lymphocytes # (Manual) D-Dimer ABG pH 7.328 L POC ABG pCO2 POC ABG pO2 ABG pO2 72.8 L 73.4 L ABG HCO3 31.0 H 34.0 H ABG O2 Saturation 93.5 L ABG Base Excess 3.5 H 7.7 H ABG Hemoglobin 13.3 L 12.1 L ABG Oxyhemoglobin ABG Sodium ABG Potassium ABG Chloride ABG Glucose Oxyhemoglobin 91.5 L 94.3 L Sodium Potassium Chloride Carbon Dioxide BUN Creatinine Glucose POC Glucose 155 H Lactic Acid Calcium Magnesium Ferritin Total Bilirubin Direct Bilirubin AST ALT Alkaline Phosphatase Lactate Dehydrogenase C-Reactive Protein Total Protein Albumin Arterial Blood Glucose Arterial Blood Ionized Calcium Urine WBC (Auto) Coronavirus (PCR) SARS-CoV-2 IgG Ab 05/24/20 05/24/20 05/24/20 09:33 12:21 17:52 WBC RBC MCV MCH MCHC RDW Lymph % (Auto) Lymph # (Auto) Seg Neutrophils % Seg Neuts % (Manual) Lymphocytes % (Manual) Seg Neutrophils # Seg Neutrophils # Man Lymphocytes # (Manual) D-Dimer ABG pH POC ABG pCO2 POC ABG pO2 ABG pO2 ABG HCO3 ABG O2 Saturation ABG Base Excess ABG Hemoglobin ABG Oxyhemoglobin ABG Sodium ABG Potassium ABG Chloride ABG Glucose Oxyhemoglobin Sodium Potassium Chloride Carbon Dioxide 34 H D BUN 28 H Creatinine 0.7 L Glucose 168 H POC Glucose 173 H 164 H Lactic Acid Calcium Magnesium Ferritin Total Bilirubin Direct Bilirubin AST ALT Alkaline Phosphatase Lactate Dehydrogenase C-Reactive Protein Total Protein Albumin Arterial Blood Glucose Arterial Blood Ionized Calcium Urine WBC (Auto) Coronavirus (PCR) SARS-CoV-2 IgG Ab 05/24/20 05/25/20 05/25/20 23:47 04:29 05:46 WBC RBC MCV MCH MCHC RDW Lymph % (Auto) Lymph # (Auto) Seg Neutrophils % Seg Neuts % (Manual) Lymphocytes % (Manual) Seg Neutrophils # Seg Neutrophils # Man Lymphocytes # (Manual) D-Dimer ABG pH POC ABG pCO2 68.6 H POC ABG pO2 ABG pO2 ABG HCO3 ABG O2 Saturation ABG Base Excess ABG Hemoglobin ABG Oxyhemoglobin ABG Sodium ABG Potassium 4.7 H ABG Chloride ABG Glucose 226 H Oxyhemoglobin Sodium Potassium Chloride Carbon Dioxide BUN Creatinine Glucose POC Glucose 171 H 201 H Lactic Acid Calcium Magnesium Ferritin Total Bilirubin Direct Bilirubin AST ALT Alkaline Phosphatase Lactate Dehydrogenase C-Reactive Protein Total Protein Albumin Arterial Blood Glucose 226 H Arterial Blood Ionized Calcium Urine WBC (Auto) Coronavirus (PCR) SARS-CoV-2 IgG Ab 05/25/20 05/25/20 08:37 08:37 WBC 12.0 H RBC 3.64 L MCV 99 H MCH 33 H MCHC RDW Lymph % (Auto) Lymph # (Auto) Seg Neutrophils % Seg Neuts % (Manual) Lymphocytes % (Manual) Seg Neutrophils # Seg Neutrophils # Man Lymphocytes # (Manual) D-Dimer ABG pH POC ABG pCO2 POC ABG pO2 ABG pO2 ABG HCO3 ABG O2 Saturation ABG Base Excess ABG Hemoglobin ABG Oxyhemoglobin ABG Sodium ABG Potassium ABG Chloride ABG Glucose Oxyhemoglobin Sodium Potassium Chloride 97.3 L Carbon Dioxide 35 H BUN 25 H Creatinine 0.7 L Glucose 191 H POC Glucose Lactic Acid Calcium Magnesium Ferritin Total Bilirubin Direct Bilirubin AST ALT Alkaline Phosphatase Lactate Dehydrogenase C-Reactive Protein Total Protein Albumin Arterial Blood Glucose Arterial Blood Ionized Calcium Urine WBC (Auto) Coronavirus (PCR) SARS-CoV-2 IgG Ab Chest x-ray: image reviewed (improved infiltrates) Allied health notes reviewed: nursing
[2020-05-25] MEDS: FAMOTIDINE 20 MG TAB PO SCH (21:44)
--- NOTE | 2020-05-25 23:04 | Progress Note ---
Assessment and Plan Assessment and Plan Patient intubated last night because of persistent hypoxia --Elevated D-dimers; on full dose anticoagulation However ID requested to get CTA chest, patient is unstable to go for CT As he is requiring high flow oxygen. -- Acute hypoxemic respiratory failure; Patient intubated and on vent support --Elevated D-dimers; check CTA to rule out PE Lower extremity venous Doppler to rule out DVT Patient is already on full dose anticoagulation per COVID-19 protocol -- Novel coronavirus infection with Bilateral pneumonia Coronavirus protocol: IV steroid therapy, IV remdesivir, isolation precautions, contact precautions, prone positioning while in bed, pulmonary toilet. consulted ID --Severe sepsis, due to COVID 19 PNA cont to treat for COVID -- Acute kidney injury (SEN) , likely vasomotor nephropathy Resolved, IV fluids, avoid nephrotoxins -- Alcohol dependence; no episodes of withdrawal symptoms Thiamine, folic acid, multivitamin, CIWA protocol. -- Elevated liver function tests Suspected secondary to alcoholic liver disease. Supportive care, alcohol cessation, patient counseled. -- DVT prophylaxis prophylactic AC with lovenox for elevated D-dimer We will closely monitor patient and adjust management as needed Patient has severe Covid pneumonia, severe hypoxia Critically ill very poor prognosis Full CODE STATUS The high probability of a clinically significant, sudden or life threatening deterioration of the [Covid pneumonia, ID, respiratory, liver] system(s) required my full and direct attention, intervention and personal management. The aggregate critical care time was [32] minutes. This time is in addition to time spent performing reported procedures but includes the following: [x] Data Review and interpretation [x] Patient assessment and monitoring of vital signs [x] Documentation [x] Medication orders and management. Subjective Date of service: 05/25/20 Principal diagnosis: Ac hypoxemic resp failure; COVID-19; Severe Sepsis; Shaggy PNA; Alcohol Abuse Interval history: Brief history; 50 YO Male with Obesity, ETOH Dependence presents to ED for evaluation for shortness of breath, generalized weakness, fatigue, malaise, body aches, decreased exercise tolerance over the past 5 days. EMS was notified and upon arrival the patient was found to be in distress with a pulse oximetry of 76% on room air as well as fever to 103 F. In the ER chest x-ray and was found to have bilateral pneumonia. Patient admitted to medical floor and initiated on pneumonia protocol as well as COVID-19 protocol. Patient severe Covid pneumonia, with persistent severe hypoxemia requiring very high flow oxygen Today on continuous BiPAP, patient is in mild distress, critically ill with very poor prognosis. Patient was on high flow oxygen but could not be maintained above 90 hence patient intubated last night electively 05/17/2020; patient with severe COVID-19 pneumonia, in isolation room Patient is on high flow oxygen, and BiPAP 05/18/20; patient feels slightly better still hypoxic, requiring continuous high flow oxygen and BiPAP Respiratory team trying to wean 05/19/20; patient is severely hypoxemic requiring continuous BiPAP today, complains of generalized weakness Trying to wean off high flow oxygen, patient is in isolation 05/20/2020; patient remains on high flow oxygen/BiPAP/100% nonrebreather. Still is hypoxemic Has sinus tachycardia patient in mild distress Wean off high flow oxygen as tolerated, pulmonary critical following 05/21/20; patient is critically ill, on continuous BiPAP remains hypoxemic in mild distress Patient has severe Covid Pneumonia with persistent hypoxemia and poor prognosis 05/22/2020 Patient was intubated last night because of persistent hypoxemia Objective - Constitutional Vitals: Vital Signs - 12hr 05/25/20 05/25/20 05/25/20 11:10 11:20 11:30 Temperature Pulse Rate 91 H 94 H 89 Pulse Rate [ From Monitor] Respiratory 20 20 20 Rate Blood Pressure 105/72 105/72 105/72 O2 Sat by Pulse 96 97 97 Oximetry 05/25/20 05/25/20 05/25/20 11:40 11:50 12:00 Temperature 99 F Pulse Rate 127 H 123 H 131 H Pulse Rate [ 122 H From Monitor] Respiratory 20 18 13 Rate Blood Pressure 105/72 105/72 105/72 O2 Sat by Pulse 95 94 93 Oximetry 05/25/20 05/25/20 05/25/20 12:10 12:20 12:24 Temperature Pulse Rate 136 H 138 H 131 H Pulse Rate [ From Monitor] Respiratory 16 13 Rate Blood Pressure 136/96 136/96 136/96 O2 Sat by Pulse 94 90 96 Oximetry 05/25/20 05/25/20 05/25/20 12:30 12:40 12:50 Temperature Pulse Rate 133 H 129 H 132 H Pulse Rate [ From Monitor] Respiratory 14 12 12 Rate Blood Pressure 136/96 136/96 136/96 O2 Sat by Pulse 90 92 91 Oximetry 05/25/20 05/25/20 05/25/20 13:00 13:10 13:20 Temperature Pulse Rate 118 H 116 H 116 H Pulse Rate [ From Monitor] Respiratory 20 20 20 Rate Blood Pressure 142/79 142/79 142/79 O2 Sat by Pulse 94 97 97 Oximetry 05/25/20 05/25/20 05/25/20 13:30 13:40 13:50 Temperature Pulse Rate 117 H 115 H 113 H Pulse Rate [ From Monitor] Respiratory 20 20 20 Rate Blood Pressure 142/79 142/79 142/79 O2 Sat by Pulse 97 97 97 Oximetry 05/25/20 05/25/20 05/25/20 14:00 14:10 14:20 Temperature Pulse Rate 119 H 116 H 117 H Pulse Rate [ From Monitor] Respiratory 20 20 20 Rate Blood Pressure 115/72 115/72 115/72 O2 Sat by Pulse 97 98 98 Oximetry 05/25/20 05/25/20 05/25/20 14:30 14:40 14:50 Temperature Pulse Rate 113 H 110 H 107 H Pulse Rate [ From Monitor] Respiratory 20 20 20 Rate Blood Pressure 115/72 115/72 115/72 O2 Sat by Pulse 97 97 97 Oximetry 05/25/20 05/25/20 05/25/20 15:00 15:10 15:20 Temperature Pulse Rate 108 H 105 H 107 H Pulse Rate [ From Monitor] Respiratory 20 20 20 Rate Blood Pressure 111/69 111/69 111/69 O2 Sat by Pulse 97 97 97 Oximetry 05/25/20 05/25/20 05/25/20 15:30 15:34 15:40 Temperature Pulse Rate 104 H 106 H 105 H Pulse Rate [ From Monitor] Respiratory 20 20 Rate Blood Pressure 111/69 111/69 111/69 O2 Sat by Pulse 97 97 97 Oximetry 05/25/20 05/25/20 05/25/20 15:50 16:00 16:10 Temperature 99.2 F Pulse Rate 108 H 106 H 104 H Pulse Rate [ 106 H From Monitor] Respiratory 20 20 20 Rate Blood Pressure 111/69 114/69 114/69 O2 Sat by Pulse 97 98 97 Oximetry 05/25/20 05/25/20 05/25/20 16:20 16:30 16:40 Temperature Pulse Rate 102 H 102 H 100 H Pulse Rate [ From Monitor] Respiratory 20 20 20 Rate Blood Pressure 114/69 114/69 114/69 O2 Sat by Pulse 97 97 97 Oximetry 05/25/20 05/25/20 05/25/20 16:50 17:00 17:10 Temperature Pulse Rate 97 H 99 H 99 H Pulse Rate [ From Monitor] Respiratory 20 20 20 Rate Blood Pressure 114/69 100/71 100/71 O2 Sat by Pulse 97 97 97 Oximetry 05/25/20 05/25/20 05/25/20 17:20 17:30 17:40 Temperature Pulse Rate 117 H 127 H 120 H Pulse Rate [ From Monitor] Respiratory 14 12 20 Rate Blood Pressure 100/71 100/71 100/71 O2 Sat by Pulse 98 97 96 Oximetry 05/25/20 05/25/20 05/25/20 17:50 18:00 18:10 Temperature Pulse Rate 114 H 112 H 109 H Pulse Rate [ From Monitor] Respiratory 20 20 20 Rate Blood Pressure 100/71 119/79 119/79 O2 Sat by Pulse 95 96 96 Oximetry 05/25/20 05/25/20 05/25/20 18:20 18:30 18:40 Temperature Pulse Rate 115 H 114 H 110 H Pulse Rate [ From Monitor] Respiratory 20 20 20 Rate Blood Pressure 119/79 119/79 119/79 O2 Sat by Pulse 95 97 97 Oximetry 05/25/20 05/25/20 05/25/20 18:50 19:00 19:10 Temperature Pulse Rate 110 H 113 H 110 H Pulse Rate [ From Monitor] Respiratory 20 20 20 Rate Blood Pressure 119/79 119/79 119/79 O2 Sat by Pulse 97 97 98 Oximetry 05/25/20 05/25/20 05/25/20 19:20 19:30 19:40 Temperature Pulse Rate 108 H 108 H 106 H Pulse Rate [ From Monitor] Respiratory 20 20 20 Rate Blood Pressure 119/79 119/79 98/70 O2 Sat by Pulse 97 97 97 Oximetry 05/25/20 05/25/20 05/25/20 19:50 20:00 20:10 Temperature Pulse Rate 106 H 104 H 105 H Pulse Rate [ 103 H From Monitor] Respiratory 20 20 20 Rate Blood Pressure 98/70 104/69 O2 Sat by Pulse 97 97 98 Oximetry 05/25/20 05/25/20 05/25/20 20:20 20:30 20:40 Temperature Pulse Rate 104 H 103 H 107 H Pulse Rate [ From Monitor] Respiratory 20 20 20 Rate Blood Pressure 104/69 104/69 O2 Sat by Pulse 98 97 97 Oximetry 05/25/20 05/25/20 05/25/20 20:50 21:00 21:10 Temperature Pulse Rate 106 H 107 H 104 H Pulse Rate [ From Monitor] Respiratory 20 20 20 Rate Blood Pressure 104/69 117/66 117/66 O2 Sat by Pulse 98 97 97 Oximetry 05/25/20 05/25/20 05/25/20 21:20 21:30 21:40 Temperature Pulse Rate 102 H 101 H 99 H Pulse Rate [ From Monitor] Respiratory 20 20 20 Rate Blood Pressure 117/66 117/66 117/66 O2 Sat by Pulse 97 97 97 Oximetry 05/25/20 05/25/20 05/25/20 21:42 21:43 21:50 Temperature Pulse Rate 105 H 100 H 100 H Pulse Rate [ From Monitor] Respiratory 20 Rate Blood Pressure 117/66 117/66 117/66 O2 Sat by Pulse 97 97 Oximetry 05/25/20 05/25/20 05/25/20 22:00 22:10 22:20 Temperature Pulse Rate 96 H 92 H 95 H Pulse Rate [ From Monitor] Respiratory 20 20 20 Rate Blood Pressure 104/68 104/68 104/68 O2 Sat by Pulse 98 98 98 Oximetry 05/25/20 22:30 Temperature Pulse Rate 92 H Pulse Rate [ From Monitor] Respiratory 20 Rate Blood Pressure 104/68 O2 Sat by Pulse 98 Oximetry General appearance: Present: no acute distress, well-nourished - EENT Eyes: PERRL, EOM intact ENT: hearing intact, clear oral mucosa Ears: bilateral: normal - Neck Neck: supple, normal ROM - Respiratory Respiratory effort: normal Respiratory: bilateral: CTA - Breasts Breasts: normal - Cardiovascular Rhythm: regular Heart Sounds: Present: S1 & S2. Absent: gallop, rub Extremities: pulses intact, No edema, normal color, Full ROM - Gastrointestinal General gastrointestinal: Present: soft, non-tender, non-distended, normal bowel sounds - Genitourinary Male genitourinary: normal - Integumentary Integumentary: clear, warm, dry - Musculoskeletal Musculoskeletal: 1, strength equal bilaterally - Neurologic Neurologic: moves all extremities - Psychiatric Psychiatric: memory intact, appropriate mood/affect, intact judgment & insight - Labs CBC & Chem 7: 05/25/20 08:37 05/25/20 08:37 Labs: Abnormal lab results 05/24/20 05/25/20 05/25/20 Range/Units 23:47 04:29 05:46 WBC (4.5-11.0) K/mm3 RBC (3.65-5.03) M/mm3 MCV (84-94) fl MCH (28-32) pg POC ABG pCO2 68.6 H (32.0-48.0) mmHg ABG Potassium 4.7 H (3.40-4.50) mmol/L ABG Glucose 226 H (65-95) mg/dL Chloride (98-107) mmol/L Carbon Dioxide (22-30) mmol/L BUN (9-20) mg/dL Creatinine (0.8-1.3) mg/dL Glucose (75-100) mg/dL POC Glucose 171 H 201 H (70-105) mg/dL Arterial Blood Glucose 226 H (65-95) mg/dL 05/25/20 05/25/20 05/25/20 Range/Units 08:37 08:37 12:38 WBC 12.0 H (4.5-11.0) K/mm3 RBC 3.64 L (3.65-5.03) M/mm3 MCV 99 H (84-94) fl MCH 33 H (28-32) pg POC ABG pCO2 (32.0-48.0) mmHg ABG Potassium (3.40-4.50) mmol/L ABG Glucose (65-95) mg/dL Chloride 97.3 L (98-107) mmol/L Carbon Dioxide 35 H (22-30) mmol/L BUN 25 H (9-20) mg/dL Creatinine 0.7 L (0.8-1.3) mg/dL Glucose 191 H (75-100) mg/dL POC Glucose 182 H (70-105) mg/dL Arterial Blood Glucose (65-95) mg/dL 05/25/20 Range/Units 18:16 WBC (4.5-11.0) K/mm3 RBC (3.65-5.03) M/mm3 MCV (84-94) fl MCH (28-32) pg POC ABG pCO2 (32.0-48.0) mmHg ABG Potassium (3.40-4.50) mmol/L ABG Glucose (65-95) mg/dL Chloride (98-107) mmol/L Carbon Dioxide (22-30) mmol/L BUN (9-20) mg/dL Creatinine (0.8-1.3) mg/dL Glucose (75-100) mg/dL POC Glucose 176 H (70-105) mg/dL Arterial Blood Glucose (65-95) mg/dL
[2020-05-26] MEDS: fentaNYL DRIP Premix 2,000 MCG/100 ML BAG IV SCH ×4 (00:45→19:54)
--- NOTE | 2020-05-26 03:21 | XRay Report ---
CHEST 1 VIEW 05/26/2020 2:07 AM INDICATION / CLINICAL INFORMATION: follow up respiratory failure. COMPARISON: 05/25/2020 FINDINGS: SUPPORT DEVICES: Stable, satisfactory device positioning. HEART / MEDIASTINUM: Stable. LUNGS / PLEURA: Stable patchy bilateral pulmonary opacities. No pneumothorax. ADDITIONAL FINDINGS: No significant additional findings. IMPRESSION: 1. No significant change. Signer Name: Lance Lynch MD Signed: 05/26/2020 3:20 AM Workstation Name: [id number]
[2020-05-26 05:37] LABS: ABG Base Excess 12.8 mmol/L (-2.0-3.0); ABG HCO3 40.4 mmol/L (20.0-26.0); ABG Methemoglobin 0.5 % (0.0-1.5); ABG Oxygen Saturation 99.3 % (95.0-99.0); ABG PCO2 70.8 mm Hg; ABG PH 7.374 pH Units (7.350-7.450); ABG PO2 221.5 mm Hg (80.0-90.0)
[2020-05-26] MEDS: methylPREDNISolone Sod Succinate 40 MG/1 ML INJ IV SCH (06:02)
[2020-05-26 08:40] LABS: Hematocrit 35.5 % (35.5-45.6); Mean Corpuscular HGB Conc 34 % (32-34); Mean Corpuscular Volume 98 fl (84-94); Platelet Count 157 K/mm3 (140-440); Red Blood Count 3.64 M/mm3 (3.65-5.03); Red Cell Distribution Width 13.8 % (13.2-15.2)
[2020-05-26 09:03] LABS: Blood Urea Nitrogen 29 mg/dL (9-20); Calcium 8.6 mg/dL (8.4-10.2); Hemolysis Index 5
[2020-05-26 09:05] LABS: BUN/Creatinine Ratio 41
[2020-05-26] MEDS: METOPROLOL TARTRATE 25 MG TAB PO SCH (09:06)
[2020-05-26] MEDS: FOLIC ACID 1 MG TAB PO SCH (09:07)
[2020-05-26] MEDS: ENOXAPARIN 120 MG/0.8 ML INJ SUB-Q SCH (09:07)
[2020-05-26] MEDS: FAMOTIDINE 20 MG TAB PO SCH (09:07)
[2020-05-26] MEDS: ALPRAZolam 0.25 MG TAB PO PRN (11:11)
--- NOTE | 2020-05-26 11:30 | Progress Note ---
Assessment and Plan Cultures: Blood culture 04/28/2020 no growth today SARS CoV2 PCR positive Sputum and urine culture with no significant growth Assessment: 50 years old male with history of alcohol dependence and obesity admitted on 05/09/2020 due to 5-day history of generalized malaise, fatigue, body aches, dyspnea exertion, cough and shortness of breath, tested positive for COVID-19 2 days before admission: #Severe sepsis: likely due to bilateral pneumonia from COVID. #Severe COVID pneumonia: Chest x-ray with bilateral patchy infiltrates. SARS-CoV-2 PCR positive. Inflammatory markers markedly elevated, D-dimer 10,000, ferritin 38,000. Noted elevated procalcitonin likely due to elevated creatinine, however treated for bacterial component given severe sepsis. SARS CoV-2 IgG positive patient is NOT a candidate for COVID convalescent plasma. Completed remdesivir. #Acute hypoxemic respiratory failure: intubated on 05/22/2020 #Elevated LFTs: from COVID #Elevated D-dimer: Venous ultrasound no DVT. Recommendations: -continue steroids: on Solu-Medrol per ICU -Monitor inflammatory markers - ferritin, Ddimer, CRP, LDH every 2-3 days -Continue anticoagulation per System Protocol based on d-dimer Julio Bennett MD, FACP [facility] O: [phone] F: [phone] Subjective Date of service: 05/26/20 Principal diagnosis: Ac hypoxemic resp failure; COVID-19; Severe Sepsis; Shaggy PNA; Alcohol Abuse Interval history: No fever. Remains on the vent. Objective - Exam Narrative Exam: Physical Exam (reviewed in chart due to PPE conservation and minimize risk of transmission) Constitutional: limited due to PPE conservation strategy Head, Ears, Nose: limited due to PPE conservation strategy Eyes: limited due to PPE conservation strategy Neck: limited due to PPE conservation strategy Oral: limited due to PPE conservation strategy Cardiovascular: limited due to PPE conservation strategy Respiratory: limited due to PPE conservation strategy GI: limited due to PPE conservation strategy Musculoskeletal: limited due to PPE conservation strategy Skin: limited due to PPE conservation strategy Hem/Lymphatic: limited due to PPE conservation strategy Psych: limited due to PPE conservation strategy Neurological: limited due to PPE conservation strategy - Constitutional Vitals: Vital Signs Temp Pulse Resp BP Pulse Ox 99.4 F 106 H 20 105/78 94 05/26/20 08:00 05/26/20 11:24 05/26/20 10:30 05/26/20 11:24 05/26/20 11:24 Temperature -Last 24 Hours Temperature 99.4 F Temperature 99.0 F Temperature 99.3 F Temperature 99.1 F Temperature 99.2 F Temperature 99 F - Labs CBC & Chem 7: 05/26/20 07:51 05/26/20 07:51 Labs: Abnormal lab results 05/25/20 05/25/20 05/25/20 Range/Units 08:37 12:38 18:16 WBC (4.5-11.0) K/mm3 RBC (3.65-5.03) M/mm3 MCV (84-94) fl MCH (28-32) pg ABG pO2 (80.0-90.0) mm Hg ABG HCO3 (20.0-26.0) mmol/L ABG O2 Saturation (95.0-99.0) % ABG Base Excess (-2.0-3.0) mmol/L ABG Hemoglobin (14.0-18.0) gm/dl Chloride 97.3 L (98-107) mmol/L Carbon Dioxide 35 H (22-30) mmol/L BUN 25 H (9-20) mg/dL Creatinine 0.7 L (0.8-1.3) mg/dL Glucose 191 H (75-100) mg/dL POC Glucose 182 H 176 H (70-105) mg/dL 05/26/20 05/26/20 05/26/20 Range/Units 00:06 04:50 06:11 WBC (4.5-11.0) K/mm3 RBC (3.65-5.03) M/mm3 MCV (84-94) fl MCH (28-32) pg ABG pO2 221.5 H (80.0-90.0) mm Hg ABG HCO3 40.4 H (20.0-26.0) mmol/L ABG O2 Saturation 99.3 H (95.0-99.0) % ABG Base Excess 12.8 H (-2.0-3.0) mmol/L ABG Hemoglobin 10.4 L (14.0-18.0) gm/dl Chloride (98-107) mmol/L Carbon Dioxide (22-30) mmol/L BUN (9-20) mg/dL Creatinine (0.8-1.3) mg/dL Glucose (75-100) mg/dL POC Glucose 152 H 165 H (70-105) mg/dL 05/26/20 05/26/20 Range/Units 07:51 07:51 WBC 13.4 H (4.5-11.0) K/mm3 RBC 3.64 L (3.65-5.03) M/mm3 MCV 98 H (84-94) fl MCH 33 H (28-32) pg ABG pO2 (80.0-90.0) mm Hg ABG HCO3 (20.0-26.0) mmol/L ABG O2 Saturation (95.0-99.0) % ABG Base Excess (-2.0-3.0) mmol/L ABG Hemoglobin (14.0-18.0) gm/dl Chloride 96.6 L (98-107) mmol/L Carbon Dioxide 39 H (22-30) mmol/L BUN 29 H (9-20) mg/dL Creatinine 0.7 L (0.8-1.3) mg/dL Glucose 174 H (75-100) mg/dL POC Glucose (70-105) mg/dL
--- NOTE | 2020-05-26 14:13 | Progress Note ---
Assessment and Plan Acute hypoxemic respiratory failure due to COVID-19 Severe Sepsis Bilateral pneumonia Acute kidney injury (SEN) with acute tubular necrosis (ATN) Alcohol dependence Elevated liver function tests - reduced FiO2 to 55% - continue to wean supplemental oxygen for target O2 sat's > 92% acutely - keep peep at 16 - continue care as below otherwise; - continue Daily SAT and SBT assessment as tolerated - VAP bundle addressed - continue lung protective strategies - continue bronchodilators with pulmonary hygiene per RT - wean per pulmonary driven protocols otherwise - accuchecks with glycemic control per SSI (While critically ill target blood glucose of 140-180 mg/dL; avoid hypoglycemia) - sedation prn for target RASS -1 to -2 - continue enteral nutritional support at goal rate as tolerated - continue airborne and contact isolation - follow repeat COVID-19 testing - continue Zinc & Vit C supplementaion - continue systemic steroids for Asthma / severe COVID infection - Prone positioning as tolerated - continue empiric full dose anticoagulation re: elevated d-dimers / hypercoagulable state - NOT a candidate for COVID convalescent plasma - continue systemic steroids X >/= 10 days - complete remdesivir dosing (total 5 days) - Monitor liver function test on Remdesivir - trend inflammatory markers - ferritin, Ddimer, CRP, LDH; to aid clinical decision making - empiric AB's coverage per ID rec's otherwise - accuchecks with glycemic control per SSI (While critically ill target blood glucose of 140-180 mg/dL; avoid hypoglycemia) - avoid nephrotoxins, renally dose all medications - continue to avoid benzodiazepine's, reduce the possibility of delirium - prn analgesia per CPOT score - Maintenance of sleep-wake cycle, avoid delirium - continue to avoid benzodiazepine's, reduce the possibility of delirium - aspiration precautions - G.I. & VTE prophylaxis - PT/OT/ROM exercises - continue mobility protocols for pressure ulcer prophylaxis - Monitor hemodynamics closely - continue other care per attending / other consultants - discharge planning ongoing concurrently .... Re-evaluate in am & prn CONDITION: CRITICAL PROGNOSIS: GUARDED CODE STATUS: FULL CODE The high probability of a clinically significant, sudden or life-threatening deterioration of the [respiratory, cardiovascular, hematologic & neurologic] system(s) required my full and direct attention, intervention and personal management. The aggregate critical care time was [33] minutes without overlap. Time includes spent on; [x] Data Review and interpretation [x] Patient assessment and monitoring of vital signs [x] Documentation [x] Medication orders and management Subjective Date of service: 05/26/20 Principal diagnosis: Ac hypoxemic resp failure; COVID-19; Severe Sepsis; Shaggy PNA; Alcohol Abuse Interval history: Patient is seen today for: Acute hypoxemic respiratory failure due to COVID-19; Severe Sepsis; Bilateral pneumonia; Alcohol dependence; Elevated liver function tests Seen and examined at bedside; 24hour events reviewed; nursing and respiratory care staff consulted; no adverse overnight events reported to me; resting in bed; remains on MVS; FiO2 down to 60% but room to wean further; peep remains at 16; appropriate during daily SAT's; no N/V/F/C Objective Vital Signs - 12hr 05/26/20 05/26/20 05/26/20 02:20 02:30 02:40 Temperature Pulse Rate 96 H 94 H 97 H Pulse Rate [ From Monitor] Respiratory 20 20 20 Rate Blood Pressure 107/64 107/64 107/64 O2 Sat by Pulse 97 98 98 Oximetry 05/26/20 05/26/20 05/26/20 02:50 03:00 03:10 Temperature Pulse Rate 97 H 95 H 97 H Pulse Rate [ From Monitor] Respiratory 20 20 20 Rate Blood Pressure 107/64 114/61 114/61 O2 Sat by Pulse 98 98 98 Oximetry 05/26/20 05/26/20 05/26/20 03:20 03:30 03:40 Temperature Pulse Rate 104 H 96 H 96 H Pulse Rate [ From Monitor] Respiratory 20 20 20 Rate Blood Pressure 114/61 114/61 114/61 O2 Sat by Pulse 98 98 98 Oximetry 05/26/20 05/26/20 05/26/20 03:50 04:00 04:10 Temperature 99.0 F Pulse Rate 98 H 98 H 98 H Pulse Rate [ 105 H From Monitor] Respiratory 20 20 20 Rate Blood Pressure 114/61 108/61 108/61 O2 Sat by Pulse 98 98 98 Oximetry 05/26/20 05/26/20 05/26/20 04:20 04:30 04:40 Temperature Pulse Rate 99 H 97 H 97 H Pulse Rate [ From Monitor] Respiratory 20 20 20 Rate Blood Pressure 108/61 108/61 108/61 O2 Sat by Pulse 98 98 98 Oximetry 05/26/20 05/26/20 05/26/20 04:50 05:00 05:10 Temperature Pulse Rate 116 H 134 H 122 H Pulse Rate [ From Monitor] Respiratory 20 12 12 Rate Blood Pressure 108/61 138/88 138/88 O2 Sat by Pulse 97 98 97 Oximetry 05/26/20 05/26/20 05/26/20 05:20 05:30 05:40 Temperature Pulse Rate 138 H 136 H 123 H Pulse Rate [ From Monitor] Respiratory 12 14 17 Rate Blood Pressure 138/88 138/88 138/88 O2 Sat by Pulse 97 96 95 Oximetry 05/26/20 05/26/20 05/26/20 05:43 05:50 06:00 Temperature Pulse Rate 127 H 122 H 132 H Pulse Rate [ From Monitor] Respiratory 15 18 Rate Blood Pressure 138/88 138/88 132/70 O2 Sat by Pulse 95 95 96 Oximetry 05/26/20 05/26/20 05/26/20 06:10 06:20 06:30 Temperature Pulse Rate 124 H 124 H 125 H Pulse Rate [ From Monitor] Respiratory 18 20 14 Rate Blood Pressure 132/70 132/70 132/70 O2 Sat by Pulse 96 95 97 Oximetry 05/26/20 05/26/20 05/26/20 06:40 06:50 07:00 Temperature Pulse Rate 129 H 126 H 129 H Pulse Rate [ From Monitor] Respiratory 13 20 14 Rate Blood Pressure 132/70 132/70 148/85 O2 Sat by Pulse 96 96 97 Oximetry 05/26/20 05/26/20 05/26/20 07:10 07:20 07:30 Temperature Pulse Rate 130 H 130 H 133 H Pulse Rate [ From Monitor] Respiratory 12 17 17 Rate Blood Pressure 148/85 148/85 148/85 O2 Sat by Pulse 97 97 96 Oximetry 05/26/20 05/26/20 05/26/20 07:46 08:00 08:16 Temperature 99.4 F Pulse Rate 135 H 142 H 158 H Pulse Rate [ 104 H From Monitor] Respiratory 17 10 L 21 Rate Blood Pressure 148/85 140/71 140/71 O2 Sat by Pulse 97 95 93 Oximetry 05/26/20 05/26/20 05/26/20 08:18 08:30 08:45 Temperature Pulse Rate 136 H 134 H 131 H Pulse Rate [ From Monitor] Respiratory 20 19 Rate Blood Pressure 140/71 140/71 121/75 O2 Sat by Pulse 95 94 94 Oximetry 05/26/20 05/26/20 05/26/20 09:00 09:06 09:15 Temperature Pulse Rate 132 H 125 H 109 H Pulse Rate [ From Monitor] Respiratory 15 20 Rate Blood Pressure 135/78 135/78 116/67 O2 Sat by Pulse 93 96 Oximetry 05/26/20 05/26/20 05/26/20 09:30 09:45 10:00 Temperature Pulse Rate 104 H 102 H 101 H Pulse Rate [ From Monitor] Respiratory 20 20 20 Rate Blood Pressure 106/60 99/60 108/60 O2 Sat by Pulse 97 97 97 Oximetry 05/26/20 05/26/20 05/26/20 10:15 10:30 11:24 Temperature Pulse Rate 133 H 104 H 106 H Pulse Rate [ From Monitor] Respiratory 19 20 Rate Blood Pressure 110/71 109/68 105/78 O2 Sat by Pulse 94 96 94 Oximetry Constitutional: no acute distress, asleep, other (middle aged obese male without significant ventilator dyssynchrony) Eyes: non-icteric ENT: oropharynx moist, other (ETT 24 cm CHILO) Neck: supple, no JVD Effort: normal, mildly labored Ascultation: Bilateral: diminished breath sounds, rhonchi Percussion: Bilateral: not dull Cardiovascular: regular rate and rhythm Gastrointestinal: normoactive bowel sounds, soft, non-tender, non-distended (protuberant) Integumentary: normal Extremities: no cyanosis, no edema, pulses normal, no ischemia or petechiae Neurologic: non-focal exam, pupils equal and round, CN II-XII normal, motor strength normal and, other (sedated) Psychiatric: other (sedated) CBC and BMP: 05/26/20 07:51 05/26/20 07:51 ABG, PT/INR, D-dimer: ABG ABG pH 7.374 pH Units (7.350-7.450) 05/26/20 04:50 POC ABG pCO2 68.6 mmHg (32.0-48.0) H 05/25/20 04:29 ABG pCO2 70.8 mm Hg 05/26/20 04:50 POC ABG pO2 101.8 mmHg (83-108) 05/25/20 04:29 ABG pO2 221.5 mm Hg (80.0-90.0) H 05/26/20 04:50 POC ABG HCO3 37.5 05/25/20 04:29 ABG O2 Saturation 99.3 % (95.0-99.0) H 05/26/20 04:50 PT/INR, D-dimer D-Dimer 1887.82 ng/mlDDU (0-234) H 05/20/20 08:16 Abnormal lab findings: Abnormal Labs 05/09/20 05/09/20 05/09/20 12:59 12:59 12:59 WBC 11.8 H RBC MCV 96 H MCH 34 H MCHC 35 H RDW Lymph % (Auto) 6.9 L Lymph # (Auto) 0.8 L Seg Neutrophils % 87.5 H Seg Neuts % (Manual) Lymphocytes % (Manual) Seg Neutrophils # 10.3 H Seg Neutrophils # Man Lymphocytes # (Manual) D-Dimer ABG pH POC ABG pCO2 POC ABG pO2 ABG pO2 ABG HCO3 ABG O2 Saturation ABG Base Excess ABG Hemoglobin ABG Oxyhemoglobin ABG Sodium ABG Potassium ABG Chloride ABG Glucose Oxyhemoglobin Sodium 130 L Potassium 3.5 L Chloride 86.4 L Carbon Dioxide BUN 33 H Creatinine 2.3 H Glucose 156 H POC Glucose Lactic Acid Calcium Magnesium Ferritin Total Bilirubin 3.40 H Direct Bilirubin 1.7 H AST 385 H ALT 134 H Alkaline Phosphatase Lactate Dehydrogenase C-Reactive Protein Total Protein Albumin 3.0 L Arterial Blood Glucose Arterial Blood Ionized Calcium Urine WBC (Auto) Coronavirus (PCR) SARS-CoV-2 IgG Ab 05/09/20 05/09/20 05/09/20 12:59 12:59 12:59 WBC RBC MCV MCH MCHC RDW Lymph % (Auto) Lymph # (Auto) Seg Neutrophils % Seg Neuts % (Manual) Lymphocytes % (Manual) Seg Neutrophils # Seg Neutrophils # Man Lymphocytes # (Manual) D-Dimer 3242.51 H ABG pH POC ABG pCO2 POC ABG pO2 ABG pO2 ABG HCO3 ABG O2 Saturation ABG Base Excess ABG Hemoglobin ABG Oxyhemoglobin ABG Sodium ABG Potassium ABG Chloride ABG Glucose Oxyhemoglobin Sodium Potassium Chloride Carbon Dioxide BUN Creatinine Glucose 158 H POC Glucose Lactic Acid 3.50 H* Calcium Magnesium Ferritin Total Bilirubin Direct Bilirubin AST ALT Alkaline Phosphatase Lactate Dehydrogenase 2166 H C-Reactive Protein 39.00 H Total Protein Albumin Arterial Blood Glucose Arterial Blood Ionized Calcium Urine WBC (Auto) Coronavirus (PCR) SARS-CoV-2 IgG Ab 05/09/20 05/09/20 05/09/20 12:59 14:20 14:20 WBC RBC MCV MCH MCHC RDW Lymph % (Auto) Lymph # (Auto) Seg Neutrophils % Seg Neuts % (Manual) Lymphocytes % (Manual) Seg Neutrophils # Seg Neutrophils # Man Lymphocytes # (Manual) D-Dimer 2861.78 H ABG pH POC ABG pCO2 POC ABG pO2 ABG pO2 ABG HCO3 ABG O2 Saturation ABG Base Excess ABG Hemoglobin ABG Oxyhemoglobin ABG Sodium ABG Potassium ABG Chloride ABG Glucose Oxyhemoglobin Sodium Potassium Chloride Carbon Dioxide BUN Creatinine Glucose POC Glucose Lactic Acid 2.20 H* Calcium Magnesium Ferritin 05285.0 H Total Bilirubin Direct Bilirubin AST ALT Alkaline Phosphatase Lactate Dehydrogenase C-Reactive Protein Total Protein Albumin Arterial Blood Glucose Arterial Blood Ionized Calcium Urine WBC (Auto) Coronavirus (PCR) SARS-CoV-2 IgG Ab 05/09/20 05/09/20 05/09/20 14:20 14:20 15:56 WBC RBC MCV MCH MCHC RDW Lymph % (Auto) Lymph # (Auto) Seg Neutrophils % Seg Neuts % (Manual) Lymphocytes % (Manual) Seg Neutrophils # Seg Neutrophils # Man Lymphocytes # (Manual) D-Dimer ABG pH POC ABG pCO2 POC ABG pO2 57.3 L ABG pO2 ABG HCO3 ABG O2 Saturation ABG Base Excess ABG Hemoglobin ABG Oxyhemoglobin 86.3 L ABG Sodium 129.9 L ABG Potassium ABG Chloride ABG Glucose 146 H Oxyhemoglobin Sodium Potassium Chloride Carbon Dioxide BUN Creatinine Glucose 143 H POC Glucose Lactic Acid Calcium Magnesium Ferritin 66146.0 H Total Bilirubin Direct Bilirubin AST ALT Alkaline Phosphatase Lactate Dehydrogenase 1953 H C-Reactive Protein 33.50 H Total Protein Albumin Arterial Blood Glucose 146 H Arterial Blood Ionized Calcium 3.9 L Urine WBC (Auto) Coronavirus (PCR) SARS-CoV-2 IgG Ab 05/10/20 05/10/20 05/10/20 10:32 10:32 18:50 WBC 15.4 H RBC MCV 97 H MCH 33 H MCHC RDW 13.1 L Lymph % (Auto) Lymph # (Auto) Seg Neutrophils % Seg Neuts % (Manual) 89.0 H Lymphocytes % (Manual) 8.0 L Seg Neutrophils # Seg Neutrophils # Man 13.7 H Lymphocytes # (Manual) D-Dimer ABG pH POC ABG pCO2 POC ABG pO2 ABG pO2 ABG HCO3 ABG O2 Saturation ABG Base Excess ABG Hemoglobin ABG Oxyhemoglobin ABG Sodium ABG Potassium ABG Chloride ABG Glucose Oxyhemoglobin Sodium 136 L Potassium Chloride 97.4 L Carbon Dioxide BUN 37 H Creatinine 1.7 H Glucose 209 H POC Glucose Lactic Acid Calcium Magnesium Ferritin > 2000.0 H Total Bilirubin Direct Bilirubin AST ALT Alkaline Phosphatase Lactate Dehydrogenase C-Reactive Protein Total Protein Albumin Arterial Blood Glucose Arterial Blood Ionized Calcium Urine WBC (Auto) Coronavirus (PCR) SARS-CoV-2 IgG Ab 05/10/20 05/10/20 05/10/20 18:50 19:00 Unknown WBC RBC MCV MCH MCHC RDW Lymph % (Auto) Lymph # (Auto) Seg Neutrophils % Seg Neuts % (Manual) Lymphocytes % (Manual) Seg Neutrophils # Seg Neutrophils # Man Lymphocytes # (Manual) D-Dimer > 58120 H ABG pH POC ABG pCO2 POC ABG pO2 ABG pO2 ABG HCO3 ABG O2 Saturation ABG Base Excess ABG Hemoglobin ABG Oxyhemoglobin ABG Sodium ABG Potassium ABG Chloride ABG Glucose Oxyhemoglobin Sodium Potassium Chloride Carbon Dioxide BUN Creatinine Glucose POC Glucose Lactic Acid Calcium Magnesium Ferritin Total Bilirubin Direct Bilirubin AST ALT Alkaline Phosphatase Lactate Dehydrogenase 1879 H C-Reactive Protein 24.80 H Total Protein Albumin Arterial Blood Glucose Arterial Blood Ionized Calcium Urine WBC (Auto) 11.0 H Coronavirus (PCR) SARS-CoV-2 IgG Ab 05/10/20 05/11/20 05/11/20 Unknown 07:30 07:30 WBC RBC MCV MCH MCHC RDW Lymph % (Auto) Lymph # (Auto) Seg Neutrophils % Seg Neuts % (Manual) Lymphocytes % (Manual) Seg Neutrophils # Seg Neutrophils # Man Lymphocytes # (Manual) D-Dimer > 2000 H ABG pH POC ABG pCO2 POC ABG pO2 ABG pO2 ABG HCO3 ABG O2 Saturation ABG Base Excess ABG Hemoglobin ABG Oxyhemoglobin ABG Sodium ABG Potassium ABG Chloride ABG Glucose Oxyhemoglobin Sodium Potassium Chloride 96.3 L Carbon Dioxide BUN 36 H Creatinine Glucose 161 H POC Glucose Lactic Acid Calcium 8.3 L Magnesium Ferritin Total Bilirubin 1.50 H Direct Bilirubin 0.6 H AST 178 H ALT 111 H Alkaline Phosphatase Lactate Dehydrogenase C-Reactive Protein Total Protein Albumin 3.0 L Arterial Blood Glucose Arterial Blood Ionized Calcium Urine WBC (Auto) Coronavirus (PCR) Positive A SARS-CoV-2 IgG Ab 05/11/20 05/11/20 05/11/20 07:30 07:30 07:30 WBC RBC MCV MCH MCHC RDW Lymph % (Auto) Lymph # (Auto) Seg Neutrophils % Seg Neuts % (Manual) Lymphocytes % (Manual) Seg Neutrophils # Seg Neutrophils # Man Lymphocytes # (Manual) D-Dimer ABG pH POC ABG pCO2 POC ABG pO2 ABG pO2 ABG HCO3 ABG O2 Saturation ABG Base Excess ABG Hemoglobin ABG Oxyhemoglobin ABG Sodium ABG Potassium ABG Chloride ABG Glucose Oxyhemoglobin Sodium Potassium Chloride Carbon Dioxide BUN Creatinine Glucose POC Glucose Lactic Acid Calcium Magnesium Ferritin 95616.0 H Total Bilirubin Direct Bilirubin AST ALT Alkaline Phosphatase Lactate Dehydrogenase 1523 H C-Reactive Protein 12.90 H Total Protein Albumin Arterial Blood Glucose Arterial Blood Ionized Calcium Urine WBC (Auto) Coronavirus (PCR) SARS-CoV-2 IgG Ab Reactive A 05/13/20 05/13/20 05/15/20 05:20 05:20 08:15 WBC RBC MCV MCH MCHC RDW Lymph % (Auto) Lymph # (Auto) Seg Neutrophils % Seg Neuts % (Manual) Lymphocytes % (Manual) Seg Neutrophils # Seg Neutrophils # Man Lymphocytes # (Manual) D-Dimer > 15495 H 5318.28 H ABG pH POC ABG pCO2 POC ABG pO2 ABG pO2 ABG HCO3 ABG O2 Saturation ABG Base Excess ABG Hemoglobin ABG Oxyhemoglobin ABG Sodium ABG Potassium ABG Chloride ABG Glucose Oxyhemoglobin Sodium Potassium Chloride Carbon Dioxide 32 H BUN 30 H Creatinine Glucose 156 H POC Glucose Lactic Acid Calcium Magnesium 2.60 H Ferritin Total Bilirubin 1.40 H Direct Bilirubin AST 121 H ALT 119 H Alkaline Phosphatase Lactate Dehydrogenase 957 H C-Reactive Protein 4.00 H Total Protein Albumin 3.0 L Arterial Blood Glucose Arterial Blood Ionized Calcium Urine WBC (Auto) Coronavirus (PCR) SARS-CoV-2 IgG Ab 05/15/20 05/15/20 05/15/20 08:15 08:15 08:15 WBC 12.4 H RBC MCV 98 H MCH 33 H MCHC RDW Lymph % (Auto) 9.7 L Lymph # (Auto) Seg Neutrophils % 86.8 H Seg Neuts % (Manual) Lymphocytes % (Manual) Seg Neutrophils # 10.8 H Seg Neutrophils # Man Lymphocytes # (Manual) D-Dimer ABG pH POC ABG pCO2 POC ABG pO2 ABG pO2 ABG HCO3 ABG O2 Saturation ABG Base Excess ABG Hemoglobin ABG Oxyhemoglobin ABG Sodium ABG Potassium ABG Chloride ABG Glucose Oxyhemoglobin Sodium Potassium Chloride 94.8 L Carbon Dioxide 32 H BUN 22 H Creatinine Glucose 115 H POC Glucose Lactic Acid Calcium 8.3 L Magnesium Ferritin 2494.0 H Total Bilirubin Direct Bilirubin AST 73 H ALT 121 H Alkaline Phosphatase Lactate Dehydrogenase 835 H C-Reactive Protein 3.40 H Total Protein 6.1 L Albumin 3.0 L Arterial Blood Glucose Arterial Blood Ionized Calcium Urine WBC (Auto) Coronavirus (PCR) SARS-CoV-2 IgG Ab 05/17/20 05/17/20 05/17/20 05:50 05:50 05:50 WBC RBC MCV MCH MCHC RDW Lymph % (Auto) Lymph # (Auto) Seg Neutrophils % Seg Neuts % (Manual) Lymphocytes % (Manual) Seg Neutrophils # Seg Neutrophils # Man Lymphocytes # (Manual) D-Dimer 2911.42 H ABG pH POC ABG pCO2 POC ABG pO2 ABG pO2 ABG HCO3 ABG O2 Saturation ABG Base Excess ABG Hemoglobin ABG Oxyhemoglobin ABG Sodium ABG Potassium ABG Chloride ABG Glucose Oxyhemoglobin Sodium 136 L Potassium Chloride 96.0 L Carbon Dioxide 34 H BUN 22 H Creatinine Glucose 140 H POC Glucose Lactic Acid Calcium Magnesium Ferritin 2082.0 H Total Bilirubin Direct Bilirubin AST ALT 75 H Alkaline Phosphatase Lactate Dehydrogenase 601 H C-Reactive Protein 2.70 H Total Protein Albumin 2.9 L Arterial Blood Glucose Arterial Blood Ionized Calcium Urine WBC (Auto) Coronavirus (PCR) SARS-CoV-2 IgG Ab 05/17/20 05/18/20 05/20/20 05:50 12:22 08:16 WBC RBC MCV 98 H MCH 33 H MCHC RDW Lymph % (Auto) 8.0 L Lymph # (Auto) 0.8 L Seg Neutrophils % 89.3 H Seg Neuts % (Manual) Lymphocytes % (Manual) Seg Neutrophils # 8.8 H Seg Neutrophils # Man Lymphocytes # (Manual) D-Dimer 1887.82 H ABG pH POC ABG pCO2 POC ABG pO2 ABG pO2 ABG HCO3 ABG O2 Saturation ABG Base Excess ABG Hemoglobin ABG Oxyhemoglobin ABG Sodium ABG Potassium ABG Chloride ABG Glucose Oxyhemoglobin Sodium Potassium Chloride Carbon Dioxide BUN Creatinine Glucose POC Glucose 178 H Lactic Acid Calcium Magnesium Ferritin Total Bilirubin Direct Bilirubin AST ALT Alkaline Phosphatase Lactate Dehydrogenase C-Reactive Protein Total Protein Albumin Arterial Blood Glucose Arterial Blood Ionized Calcium Urine WBC (Auto) Coronavirus (PCR) SARS-CoV-2 IgG Ab 05/20/20 05/20/20 05/21/20 08:16 08:16 21:10 WBC RBC MCV MCH MCHC RDW Lymph % (Auto) Lymph # (Auto) Seg Neutrophils % Seg Neuts % (Manual) Lymphocytes % (Manual) Seg Neutrophils # Seg Neutrophils # Man Lymphocytes # (Manual) D-Dimer ABG pH 7.483 H POC ABG pCO2 POC ABG pO2 ABG pO2 50.0 L ABG HCO3 27.0 H ABG O2 Saturation 86.2 L ABG Base Excess 3.7 H ABG Hemoglobin ABG Oxyhemoglobin ABG Sodium ABG Potassium ABG Chloride ABG Glucose Oxyhemoglobin 84.2 L Sodium Potassium Chloride Carbon Dioxide BUN Creatinine Glucose POC Glucose Lactic Acid Calcium Magnesium Ferritin 1960.0 H Total Bilirubin Direct Bilirubin AST ALT Alkaline Phosphatase Lactate Dehydrogenase 705 H C-Reactive Protein 3.10 H Total Protein Albumin Arterial Blood Glucose Arterial Blood Ionized Calcium Urine WBC (Auto) Coronavirus (PCR) SARS-CoV-2 IgG Ab 05/22/20 05/22/20 05/22/20 04:01 07:53 07:53 WBC 19.2 H RBC MCV 98 H MCH 34 H MCHC RDW Lymph % (Auto) Lymph # (Auto) Seg Neutrophils % Seg Neuts % (Manual) 96.0 H Lymphocytes % (Manual) 1.0 L Seg Neutrophils # Seg Neutrophils # Man 18.4 H Lymphocytes # (Manual) 0.2 L D-Dimer ABG pH POC ABG pCO2 53.8 H POC ABG pO2 125.5 H ABG pO2 ABG HCO3 ABG O2 Saturation ABG Base Excess ABG Hemoglobin ABG Oxyhemoglobin ABG Sodium 131.8 L ABG Potassium 4.8 H ABG Chloride 94.0 L ABG Glucose 163 H Oxyhemoglobin Sodium 131 L Potassium Chloride 93.4 L Carbon Dioxide BUN 40 H Creatinine Glucose 176 H POC Glucose Lactic Acid Calcium Magnesium 2.70 H Ferritin Total Bilirubin 1.80 H Direct Bilirubin AST 45 H ALT 116 H Alkaline Phosphatase 181 H Lactate Dehydrogenase C-Reactive Protein Total Protein Albumin 2.6 L Arterial Blood Glucose 163 H Arterial Blood Ionized Calcium 4.5 L Urine WBC (Auto) Coronavirus (PCR) SARS-CoV-2 IgG Ab 05/23/20 05/24/20 05/24/20 04:17 03:07 04:08 WBC RBC MCV MCH MCHC RDW Lymph % (Auto) Lymph # (Auto) Seg Neutrophils % Seg Neuts % (Manual) Lymphocytes % (Manual) Seg Neutrophils # Seg Neutrophils # Man Lymphocytes # (Manual) D-Dimer ABG pH 7.328 L POC ABG pCO2 POC ABG pO2 ABG pO2 72.8 L 73.4 L ABG HCO3 31.0 H 34.0 H ABG O2 Saturation 93.5 L ABG Base Excess 3.5 H 7.7 H ABG Hemoglobin 13.3 L 12.1 L ABG Oxyhemoglobin ABG Sodium ABG Potassium ABG Chloride ABG Glucose Oxyhemoglobin 91.5 L 94.3 L Sodium Potassium Chloride Carbon Dioxide BUN Creatinine Glucose POC Glucose 155 H Lactic Acid Calcium Magnesium Ferritin Total Bilirubin Direct Bilirubin AST ALT Alkaline Phosphatase Lactate Dehydrogenase C-Reactive Protein Total Protein Albumin Arterial Blood Glucose Arterial Blood Ionized Calcium Urine WBC (Auto) Coronavirus (PCR) SARS-CoV-2 IgG Ab 05/24/20 05/24/20 05/24/20 09:33 12:21 17:52 WBC RBC MCV MCH MCHC RDW Lymph % (Auto) Lymph # (Auto) Seg Neutrophils % Seg Neuts % (Manual) Lymphocytes % (Manual) Seg Neutrophils # Seg Neutrophils # Man Lymphocytes # (Manual) D-Dimer ABG pH POC ABG pCO2 POC ABG pO2 ABG pO2 ABG HCO3 ABG O2 Saturation ABG Base Excess ABG Hemoglobin ABG Oxyhemoglobin ABG Sodium ABG Potassium ABG Chloride ABG Glucose Oxyhemoglobin Sodium Potassium Chloride Carbon Dioxide 34 H D BUN 28 H Creatinine 0.7 L Glucose 168 H POC Glucose 173 H 164 H Lactic Acid Calcium Magnesium Ferritin Total Bilirubin Direct Bilirubin AST ALT Alkaline Phosphatase Lactate Dehydrogenase C-Reactive Protein Total Protein Albumin Arterial Blood Glucose Arterial Blood Ionized Calcium Urine WBC (Auto) Coronavirus (PCR) SARS-CoV-2 IgG Ab 05/24/20 05/25/20 05/25/20 23:47 04:29 05:46 WBC RBC MCV MCH MCHC RDW Lymph % (Auto) Lymph # (Auto) Seg Neutrophils % Seg Neuts % (Manual) Lymphocytes % (Manual) Seg Neutrophils # Seg Neutrophils # Man Lymphocytes # (Manual) D-Dimer ABG pH POC ABG pCO2 68.6 H POC ABG pO2 ABG pO2 ABG HCO3 ABG O2 Saturation ABG Base Excess ABG Hemoglobin ABG Oxyhemoglobin ABG Sodium ABG Potassium 4.7 H ABG Chloride ABG Glucose 226 H Oxyhemoglobin Sodium Potassium Chloride Carbon Dioxide BUN Creatinine Glucose POC Glucose 171 H 201 H Lactic Acid Calcium Magnesium Ferritin Total Bilirubin Direct Bilirubin AST ALT Alkaline Phosphatase Lactate Dehydrogenase C-Reactive Protein Total Protein Albumin Arterial Blood Glucose 226 H Arterial Blood Ionized Calcium Urine WBC (Auto) Coronavirus (PCR) SARS-CoV-2 IgG Ab 05/25/20 05/25/20 05/25/20 08:37 08:37 12:38 WBC 12.0 H RBC 3.64 L MCV 99 H MCH 33 H MCHC RDW Lymph % (Auto) Lymph # (Auto) Seg Neutrophils % Seg Neuts % (Manual) Lymphocytes % (Manual) Seg Neutrophils # Seg Neutrophils # Man Lymphocytes # (Manual) D-Dimer ABG pH POC ABG pCO2 POC ABG pO2 ABG pO2 ABG HCO3 ABG O2 Saturation ABG Base Excess ABG Hemoglobin ABG Oxyhemoglobin ABG Sodium ABG Potassium ABG Chloride ABG Glucose Oxyhemoglobin Sodium Potassium Chloride 97.3 L Carbon Dioxide 35 H BUN 25 H Creatinine 0.7 L Glucose 191 H POC Glucose 182 H Lactic Acid Calcium Magnesium Ferritin Total Bilirubin Direct Bilirubin AST ALT Alkaline Phosphatase Lactate Dehydrogenase C-Reactive Protein Total Protein Albumin Arterial Blood Glucose Arterial Blood Ionized Calcium Urine WBC (Auto) Coronavirus (PCR) SARS-CoV-2 IgG Ab 05/25/20 05/26/20 05/26/20 18:16 00:06 04:50 WBC RBC MCV MCH MCHC RDW Lymph % (Auto) Lymph # (Auto) Seg Neutrophils % Seg Neuts % (Manual) Lymphocytes % (Manual) Seg Neutrophils # Seg Neutrophils # Man Lymphocytes # (Manual) D-Dimer ABG pH POC ABG pCO2 POC ABG pO2 ABG pO2 221.5 H ABG HCO3 40.4 H ABG O2 Saturation 99.3 H ABG Base Excess 12.8 H ABG Hemoglobin 10.4 L ABG Oxyhemoglobin ABG Sodium ABG Potassium ABG Chloride ABG Glucose Oxyhemoglobin Sodium Potassium Chloride Carbon Dioxide BUN Creatinine Glucose POC Glucose 176 H 152 H Lactic Acid Calcium Magnesium Ferritin Total Bilirubin Direct Bilirubin AST ALT Alkaline Phosphatase Lactate Dehydrogenase C-Reactive Protein Total Protein Albumin Arterial Blood Glucose Arterial Blood Ionized Calcium Urine WBC (Auto) Coronavirus (PCR) SARS-CoV-2 IgG Ab 05/26/20 05/26/20 05/26/20 06:11 07:51 07:51 WBC 13.4 H RBC 3.64 L MCV 98 H MCH 33 H MCHC RDW Lymph % (Auto) Lymph # (Auto) Seg Neutrophils % Seg Neuts % (Manual) Lymphocytes % (Manual) Seg Neutrophils # Seg Neutrophils # Man Lymphocytes # (Manual) D-Dimer ABG pH POC ABG pCO2 POC ABG pO2 ABG pO2 ABG HCO3 ABG O2 Saturation ABG Base Excess ABG Hemoglobin ABG Oxyhemoglobin ABG Sodium ABG Potassium ABG Chloride ABG Glucose Oxyhemoglobin Sodium Potassium Chloride 96.6 L Carbon Dioxide 39 H BUN 29 H Creatinine 0.7 L Glucose 174 H POC Glucose 165 H Lactic Acid Calcium Magnesium Ferritin Total Bilirubin Direct Bilirubin AST ALT Alkaline Phosphatase Lactate Dehydrogenase C-Reactive Protein Total Protein Albumin Arterial Blood Glucose Arterial Blood Ionized Calcium Urine WBC (Auto) Coronavirus (PCR) SARS-CoV-2 IgG Ab Chest x-ray: image reviewed Allied health notes reviewed: nursing
--- NOTE | 2020-05-26 16:12 | Progress Note ---
Assessment and Plan Assessment and Plan Patient intubated last night because of persistent hypoxia --Elevated D-dimers; on full dose anticoagulation However ID requested to get CTA chest, patient is unstable to go for CT As he is requiring high flow oxygen. -- Acute hypoxemic respiratory failure; Patient intubated and on vent support --Elevated D-dimers; check CTA to rule out PE Lower extremity venous Doppler to rule out DVT Patient is already on full dose anticoagulation per COVID-19 protocol -- Novel coronavirus infection with Bilateral pneumonia Coronavirus protocol: IV steroid therapy, IV remdesivir, isolation precautions, contact precautions, prone positioning while in bed, pulmonary toilet. consulted ID --Severe sepsis, due to COVID 19 PNA cont to treat for COVID -- Acute kidney injury (SEN) , likely vasomotor nephropathy Resolved, IV fluids, avoid nephrotoxins -- Alcohol dependence; no episodes of withdrawal symptoms Thiamine, folic acid, multivitamin, CIWA protocol. -- Elevated liver function tests Suspected secondary to alcoholic liver disease. Supportive care, alcohol cessation, patient counseled. -- DVT prophylaxis prophylactic AC with lovenox for elevated D-dimer We will closely monitor patient and adjust management as needed Patient has severe Covid pneumonia, severe hypoxia Critically ill very poor prognosis Full CODE STATUS The high probability of a clinically significant, sudden or life threatening deterioration of the [Covid pneumonia, ID, respiratory, liver] system(s) required my full and direct attention, intervention and personal management. The aggregate critical care time was [32] minutes. This time is in addition to time spent performing reported procedures but includes the following: [x] Data Review and interpretation [x] Patient assessment and monitoring of vital signs [x] Documentation [x] Medication orders and management. Subjective Date of service: 05/26/20 Principal diagnosis: Ac hypoxemic resp failure; COVID-19; Severe Sepsis; Shaggy PNA; Alcohol Abuse Interval history: Brief history; 50 YO Male with Obesity, ETOH Dependence presents to ED for evaluation for shortness of breath, generalized weakness, fatigue, malaise, body aches, decreased exercise tolerance over the past 5 days. EMS was notified and upon arrival the patient was found to be in distress with a pulse oximetry of 76% on room air as well as fever to 103 F. In the ER chest x-ray and was found to have bilateral pneumonia. Patient admitted to medical floor and initiated on pneumonia protocol as well as COVID-19 protocol. Patient severe Covid pneumonia, with persistent severe hypoxemia requiring very high flow oxygen Today on continuous BiPAP, patient is in mild distress, critically ill with very poor prognosis. Patient was on high flow oxygen but could not be maintained above 90 hence patient intubated last night electively 05/17/2020; patient with severe COVID-19 pneumonia, in isolation room Patient is on high flow oxygen, and BiPAP 05/18/20; patient feels slightly better still hypoxic, requiring continuous high flow oxygen and BiPAP Respiratory team trying to wean 05/19/20; patient is severely hypoxemic requiring continuous BiPAP today, complains of generalized weakness Trying to wean off high flow oxygen, patient is in isolation 05/20/2020; patient remains on high flow oxygen/BiPAP/100% nonrebreather. Still is hypoxemic Has sinus tachycardia patient in mild distress Wean off high flow oxygen as tolerated, pulmonary critical following 05/21/20; patient is critically ill, on continuous BiPAP remains hypoxemic in mild distress Patient has severe Covid Pneumonia with persistent hypoxemia and poor prognosis 05/22/2020 Patient was intubated last night because of persistent hypoxemia Objective - Constitutional Vitals: Vital Signs - 12hr 05/26/20 05/26/20 05/26/20 04:20 04:30 04:40 Temperature Pulse Rate 99 H 97 H 97 H Pulse Rate [ From Monitor] Respiratory 20 20 20 Rate Blood Pressure 108/61 108/61 108/61 O2 Sat by Pulse 98 98 98 Oximetry 05/26/20 05/26/20 05/26/20 04:50 05:00 05:10 Temperature Pulse Rate 116 H 134 H 122 H Pulse Rate [ From Monitor] Respiratory 20 12 12 Rate Blood Pressure 108/61 138/88 138/88 O2 Sat by Pulse 97 98 97 Oximetry 05/26/20 05/26/20 05/26/20 05:20 05:30 05:40 Temperature Pulse Rate 138 H 136 H 123 H Pulse Rate [ From Monitor] Respiratory 12 14 17 Rate Blood Pressure 138/88 138/88 138/88 O2 Sat by Pulse 97 96 95 Oximetry 05/26/20 05/26/20 05/26/20 05:43 05:50 06:00 Temperature Pulse Rate 127 H 122 H 132 H Pulse Rate [ From Monitor] Respiratory 15 18 Rate Blood Pressure 138/88 138/88 132/70 O2 Sat by Pulse 95 95 96 Oximetry 05/26/2020 05/26/20 06:10 06:20 06:30 Temperature Pulse Rate 124 H 124 H 125 H Pulse Rate [ From Monitor] Respiratory 18 20 14 Rate Blood Pressure 132/70 132/70 132/70 O2 Sat by Pulse 96 95 97 Oximetry 05/26/20 05/26/20 05/26/20 06:40 06:50 07:00 Temperature Pulse Rate 129 H 126 H 129 H Pulse Rate [ From Monitor] Respiratory 13 20 14 Rate Blood Pressure 132/70 132/70 148/85 O2 Sat by Pulse 96 96 97 Oximetry 05/26/20 05/26/20 05/26/20 07:10 07:20 07:30 Temperature Pulse Rate 130 H 130 H 133 H Pulse Rate [ From Monitor] Respiratory 12 17 17 Rate Blood Pressure 148/85 148/85 148/85 O2 Sat by Pulse 97 97 96 Oximetry 05/26/20 05/26/20 05/26/20 07:46 08:00 08:16 Temperature 99.4 F Pulse Rate 135 H 142 H 158 H Pulse Rate [ 104 H From Monitor] Respiratory 17 10 L 21 Rate Blood Pressure 148/85 140/71 140/71 O2 Sat by Pulse 97 95 93 Oximetry 05/26/20 05/26/20 05/26/20 08:18 08:30 08:45 Temperature Pulse Rate 136 H 134 H 131 H Pulse Rate [ From Monitor] Respiratory 20 19 Rate Blood Pressure 140/71 140/71 121/75 O2 Sat by Pulse 95 94 94 Oximetry 05/26/20 05/26/20 05/26/20 09:00 09:06 09:15 Temperature Pulse Rate 132 H 125 H 109 H Pulse Rate [ From Monitor] Respiratory 15 20 Rate Blood Pressure 135/78 135/78 116/67 O2 Sat by Pulse 93 96 Oximetry 05/26/20 05/26/20 05/26/20 09:30 09:45 10:00 Temperature Pulse Rate 104 H 102 H 101 H Pulse Rate [ From Monitor] Respiratory 20 20 20 Rate Blood Pressure 106/60 99/60 108/60 O2 Sat by Pulse 97 97 97 Oximetry 05/26/20 05/26/2020 10:15 10:30 11:24 Temperature Pulse Rate 133 H 104 H 106 H Pulse Rate [ From Monitor] Respiratory 19 20 Rate Blood Pressure 110/71 109/68 105/78 O2 Sat by Pulse 94 96 94 Oximetry 05/26/20 14:14 Temperature Pulse Rate 103 H Pulse Rate [ From Monitor] Respiratory Rate Blood Pressure 102/63 O2 Sat by Pulse 95 Oximetry General appearance: Present: no acute distress, well-nourished - EENT Eyes: PERRL, EOM intact ENT: hearing intact, clear oral mucosa Ears: bilateral: normal - Neck Neck: supple, normal ROM - Respiratory Respiratory effort: normal Respiratory: bilateral: CTA - Breasts Breasts: normal - Cardiovascular Rhythm: regular Heart Sounds: Present: S1 & S2. Absent: gallop, rub Extremities: pulses intact, No edema, normal color, Full ROM - Gastrointestinal General gastrointestinal: Present: soft, non-tender, non-distended, normal bowel sounds - Genitourinary Male genitourinary: normal - Integumentary Integumentary: clear, warm, dry - Musculoskeletal Musculoskeletal: 1, strength equal bilaterally - Neurologic Neurologic: moves all extremities - Psychiatric Psychiatric: memory intact, appropriate mood/affect, intact judgment & insight - Labs CBC & Chem 7: 05/26/20 07:51 05/26/20 07:51 Labs: Abnormal lab results 05/25/20 05/25/20 05/26/20 Range/Units 12:38 18:16 00:06 WBC (4.5-11.0) K/mm3 RBC (3.65-5.03) M/mm3 MCV (84-94) fl MCH (28-32) pg ABG pO2 (80.0-90.0) mm Hg ABG HCO3 (20.0-26.0) mmol/L ABG O2 Saturation (95.0-99.0) % ABG Base Excess (-2.0-3.0) mmol/L ABG Hemoglobin (14.0-18.0) gm/dl Chloride (98-107) mmol/L Carbon Dioxide (22-30) mmol/L BUN (9-20) mg/dL Creatinine (0.8-1.3) mg/dL Glucose (75-100) mg/dL POC Glucose 182 H 176 H 152 H (70-105) mg/dL 05/26/20 05/26/20 05/26/20 Range/Units 04:50 06:11 07:51 WBC 13.4 H (4.5-11.0) K/mm3 RBC 3.64 L (3.65-5.03) M/mm3 MCV 98 H (84-94) fl MCH 33 H (28-32) pg ABG pO2 221.5 H (80.0-90.0) mm Hg ABG HCO3 40.4 H (20.0-26.0) mmol/L ABG O2 Saturation 99.3 H (95.0-99.0) % ABG Base Excess 12.8 H (-2.0-3.0) mmol/L ABG Hemoglobin 10.4 L (14.0-18.0) gm/dl Chloride (98-107) mmol/L Carbon Dioxide (22-30) mmol/L BUN (9-20) mg/dL Creatinine (0.8-1.3) mg/dL Glucose (75-100) mg/dL POC Glucose 165 H (70-105) mg/dL 05/26/20 Range/Units 07:51 WBC (4.5-11.0) K/mm3 RBC (3.65-5.03) M/mm3 MCV (84-94) fl MCH (28-32) pg ABG pO2 (80.0-90.0) mm Hg ABG HCO3 (20.0-26.0) mmol/L ABG O2 Saturation (95.0-99.0) % ABG Base Excess (-2.0-3.0) mmol/L ABG Hemoglobin (14.0-18.0) gm/dl Chloride 96.6 L (98-107) mmol/L Carbon Dioxide 39 H (22-30) mmol/L BUN 29 H (9-20) mg/dL Creatinine 0.7 L (0.8-1.3) mg/dL Glucose 174 H (75-100) mg/dL POC Glucose (70-105) mg/dL
[2020-05-27] MEDS: METOPROLOL TARTRATE 25 MG TAB PO SCH ×2 (00:12→09:16)
[2020-05-27] MEDS: ENOXAPARIN 120 MG/0.8 ML INJ SUB-Q SCH ×3 (00:13→21:46)
[2020-05-27] MEDS: FAMOTIDINE 20 MG TAB PO SCH ×3 (00:13→21:47)
[2020-05-27] MEDS: methylPREDNISolone Sod Succinate 40 MG/1 ML INJ IV SCH ×3 (00:28→19:23)
[2020-05-27] MEDS: ACETAMINOPHEN 325 MG TAB PO PRN ×2 (00:29→21:54)
[2020-05-27] MEDS: fentaNYL DRIP Premix 2,000 MCG/100 ML BAG IV SCH ×4 (01:56→21:44)
--- NOTE | 2020-05-27 05:48 | XRay Report ---
CHEST 1 VIEW 05/27/2020 4:40 AM INDICATION / CLINICAL INFORMATION: follow up respiratory failure. COMPARISON: 05/26/2020 FINDINGS: SUPPORT DEVICES: Stable, satisfactory device positioning. HEART / MEDIASTINUM: Stable. LUNGS / PLEURA: Stable patchy bilateral opacities. No pneumothorax. ADDITIONAL FINDINGS: No significant additional findings. IMPRESSION: 1. No significant change. Signer Name: Lance Lynch MD Signed: 05/27/2020 5:44 AM Workstation Name: [id number]
[2020-05-27] MEDS: ALPRAZolam 0.25 MG TAB PO PRN ×3 (08:06→21:54)
[2020-05-27] MEDS: FOLIC ACID 1 MG TAB PO SCH (09:16)
--- NOTE | 2020-05-27 11:48 | Progress Note ---
Assessment and Plan Cultures: Blood culture 04/28/2020 no growth today SARS CoV2 PCR positive Sputum and urine culture with no significant growth Assessment: 50 years old male with history of alcohol dependence and obesity admitted on 05/09/2020 due to 5-day history of generalized malaise, fatigue, body aches, dyspnea exertion, cough and shortness of breath, tested positive for COVID-19 2 days before admission: #Severe sepsis: likely due to bilateral pneumonia from COVID. #Severe COVID pneumonia: Chest x-ray with bilateral patchy infiltrates. SARS-CoV-2 PCR positive. Inflammatory markers markedly elevated, D-dimer 10,000, ferritin 38,000. Noted elevated procalcitonin likely due to elevated creatinine, however treated for bacterial component given severe sepsis. SARS CoV-2 IgG positive patient is NOT a candidate for COVID convalescent plasma. Completed remdesivir. #Acute hypoxemic respiratory failure: intubated on 05/22/2020 #Elevated LFTs: from COVID #Elevated D-dimer: Venous ultrasound no DVT. Recommendations: -continue steroids: on Solu-Medrol, wean per ICU -Monitor inflammatory markers - ferritin, Ddimer, CRP, LDH every 3 days -Continue anticoagulation per System Protocol based on d-dimer Julio Bennett MD, FACP [facility] O: [phone] F: [phone] Subjective Date of service: 05/27/20 Principal diagnosis: Ac hypoxemic resp failure; COVID-19; Severe Sepsis; Shaggy PNA; Alcohol Abuse Interval history: No fever. Remains on the vent. Objective - Exam Narrative Exam: Physical Exam (reviewed in chart due to PPE conservation and minimize risk of transmission) Constitutional: limited due to PPE conservation strategy Head, Ears, Nose: limited due to PPE conservation strategy Eyes: limited due to PPE conservation strategy Neck: limited due to PPE conservation strategy Oral: limited due to PPE conservation strategy Cardiovascular: limited due to PPE conservation strategy Respiratory: limited due to PPE conservation strategy GI: limited due to PPE conservation strategy Musculoskeletal: limited due to PPE conservation strategy Skin: limited due to PPE conservation strategy Hem/Lymphatic: limited due to PPE conservation strategy Psych: limited due to PPE conservation strategy Neurological: limited due to PPE conservation strategy - Constitutional Vitals: Vital Signs Temp Pulse Resp BP Pulse Ox 98.5 F 95 H 20 97/60 94 05/27/20 08:00 05/27/20 11:31 05/27/20 11:00 05/27/20 11:31 05/27/20 11:31 Temperature -Last 24 Hours Temperature 98.5 F Temperature 99.1 F Temperature 99.5 F Temperature 99.4 F Temperature 99.0 F Temperature 98.8 F - Labs CBC & Chem 7: 05/26/20 07:51 05/26/20 07:51 Labs: Abnormal lab results 05/26/20 05/27/20 05/27/20 Range/Units 23:23 03:43 05:29 ABG pH 7.480 H (7.320-7.450) POC ABG pCO2 52.4 H (32.0-48.0) mmHg POC ABG pO2 61.4 L (83-108) mmHg ABG Sodium 134.9 L (136.0-145.0) mmol/L ABG Chloride 95.0 L (98-107) mmol/L ABG Glucose 221 H (65-95) mg/dL POC Glucose 169 H 227 H (70-105) mg/dL Triglycerides (2-149) mg/dL Arterial Blood Glucose 221 H (65-95) mg/dL Arterial Blood Ionized Calcium 4.5 L (4.6-5.3) mg/dL 05/27/20 Range/Units 07:19 ABG pH (7.320-7.450) POC ABG pCO2 (32.0-48.0) mmHg POC ABG pO2 (83-108) mmHg ABG Sodium (136.0-145.0) mmol/L ABG Chloride (98-107) mmol/L ABG Glucose (65-95) mg/dL POC Glucose (70-105) mg/dL Triglycerides 247 H (2-149) mg/dL Arterial Blood Glucose (65-95) mg/dL Arterial Blood Ionized Calcium (4.6-5.3) mg/dL
--- NOTE | 2020-05-27 14:38 | Progress Note ---
Assessment and Plan Acute hypoxemic respiratory failure due to COVID-19 Severe Sepsis Bilateral pneumonia Acute kidney injury (SEN) with acute tubular necrosis (ATN) Alcohol dependence Elevated liver function tests - continue to wean supplemental oxygen for target O2 sat's > 92% acutely - keep peep at 16 for now - continue care as below otherwise; - continue Daily SAT and SBT assessment as tolerated - VAP bundle addressed - continue lung protective strategies - continue bronchodilators with pulmonary hygiene per RT - wean per pulmonary driven protocols otherwise - accuchecks with glycemic control per SSI (While critically ill target blood glucose of 140-180 mg/dL; avoid hypoglycemia) - sedation prn for target RASS -1 to -2 - continue enteral nutritional support at goal rate as tolerated - continue airborne and contact isolation - follow repeat COVID-19 testing - continue Zinc & Vit C supplementaion - continue systemic steroids for Asthma / severe COVID infection - Prone positioning as tolerated - continue empiric full dose anticoagulation re: elevated d-dimers / hypercoagulable state - NOT a candidate for COVID convalescent plasma - continue systemic steroids X >/= 10 days - complete remdesivir dosing (total 5 days) - Monitor liver function test on Remdesivir - trend inflammatory markers - ferritin, Ddimer, CRP, LDH; to aid clinical decision making - empiric AB's coverage per ID rec's otherwise - accuchecks with glycemic control per SSI (While critically ill target blood glucose of 140-180 mg/dL; avoid hypoglycemia) - avoid nephrotoxins, renally dose all medications - continue to avoid benzodiazepine's, reduce the possibility of delirium - prn analgesia per CPOT score - Maintenance of sleep-wake cycle, avoid delirium - continue to avoid benzodiazepine's, reduce the possibility of delirium - aspiration precautions - G.I. & VTE prophylaxis - PT/OT/ROM exercises - continue mobility protocols for pressure ulcer prophylaxis - Monitor hemodynamics closely - continue other care per attending / other consultants - discharge planning ongoing concurrently .... Re-evaluate in am & prn CONDITION: CRITICAL PROGNOSIS: GUARDED CODE STATUS: FULL CODE The high probability of a clinically significant, sudden or life-threatening deterioration of the [respiratory, cardiovascular, hematologic & neurologic] system(s) required my full and direct attention, intervention and personal management. The aggregate critical care time was [35] minutes without overlap. Time includes spent on; [x] Data Review and interpretation [x] Patient assessment and monitoring of vital signs [x] Documentation [x] Medication orders and management Subjective Date of service: 05/27/20 Principal diagnosis: Ac hypoxemic resp failure; COVID-19; Severe Sepsis; Shaggy PNA; Alcohol Abuse Interval history: Patient is seen today for: Acute hypoxemic respiratory failure due to COVID-19; Severe Sepsis; Bilateral pneumonia; Alcohol dependence; Elevated liver function tests Seen and examined at bedside; 24hour events reviewed; nursing and respiratory care staff consulted; no adverse overnight events reported to me; resting in bed; remains on MVS; FiO2 down to 55%; peep remains at 16; no emesis or overt aspiration; afebrile Objective Vital Signs - 12hr 05/27/20 05/27/20 05/27/20 02:46 03:00 03:16 Temperature Pulse Rate 116 H 127 H 112 H Pulse Rate [ From Monitor] Respiratory 18 16 20 Rate Blood Pressure 114/75 115/72 105/72 O2 Sat by Pulse 92 91 92 Oximetry 05/27/20 05/27/20 05/27/20 03:26 03:30 03:46 Temperature Pulse Rate 111 H 121 H 114 H Pulse Rate [ From Monitor] Respiratory 20 9 L Rate Blood Pressure 105/72 105/72 105/72 O2 Sat by Pulse 93 92 92 Oximetry 05/27/20 05/27/20 05/27/20 04:00 04:16 04:30 Temperature 99.1 F Pulse Rate 117 H 124 H 121 H Pulse Rate [ 114 H From Monitor] Respiratory 19 22 20 Rate Blood Pressure 113/77 113/77 113/77 O2 Sat by Pulse 93 92 93 Oximetry 05/27/20 05/27/20 05/27/20 04:46 05:00 06:00 Temperature Pulse Rate 117 H 121 H 110 H Pulse Rate [ From Monitor] Respiratory 20 20 19 Rate Blood Pressure 113/77 114/71 114/71 O2 Sat by Pulse 93 94 96 Oximetry 05/27/20 05/27/20 05/27/20 07:00 08:00 08:28 Temperature 98.5 F Pulse Rate 102 H 99 H 99 H Pulse Rate [ 114 H From Monitor] Respiratory 16 18 Rate Blood Pressure 93/60 104/66 104/66 O2 Sat by Pulse 95 93 96 Oximetry 05/27/20 05/27/20 05/27/20 09:00 09:16 10:00 Temperature Pulse Rate 97 H 103 H 84 Pulse Rate [ From Monitor] Respiratory 20 18 Rate Blood Pressure 100/62 100/62 98/60 O2 Sat by Pulse 96 95 Oximetry 05/27/20 05/27/20 05/27/20 11:00 11:31 12:00 Temperature 98.7 F Pulse Rate 89 95 H Pulse Rate [ From Monitor] Respiratory 20 Rate Blood Pressure 97/60 97/60 O2 Sat by Pulse 96 94 Oximetry Constitutional: no acute distress, asleep, other (middle aged obese male without significant ventilator dyssynchrony) Eyes: non-icteric ENT: oropharynx moist, other (ETT 24 cm CHILO) Neck: supple, no JVD Effort: normal, mildly labored Ascultation: Bilateral: diminished breath sounds, rhonchi Percussion: Bilateral: not dull Cardiovascular: regular rate and rhythm Gastrointestinal: normoactive bowel sounds, soft, non-tender, non-distended (protuberant) Integumentary: normal Extremities: no cyanosis, no edema, pulses normal, no ischemia or petechiae Neurologic: non-focal exam, pupils equal and round, CN II-XII normal, motor strength normal and, other (sedated) Psychiatric: other (sedated) CBC and BMP: 05/26/20 07:51 05/26/20 07:51 ABG, PT/INR, D-dimer: ABG ABG pH 7.480 (7.320-7.450) H 05/27/20 03:43 POC ABG pCO2 52.4 mmHg (32.0-48.0) H 05/27/20 03:43 ABG pCO2 70.8 mm Hg 05/26/20 04:50 POC ABG pO2 61.4 mmHg (83-108) L 05/27/20 03:43 ABG pO2 221.5 mm Hg (80.0-90.0) H 05/26/20 04:50 POC ABG HCO3 38.1 05/27/20 03:43 ABG O2 Saturation 99.3 % (95.0-99.0) H 05/26/20 04:50 PT/INR, D-dimer D-Dimer 1887.82 ng/mlDDU (0-234) H 05/20/20 08:16 Abnormal lab findings: Abnormal Labs 1105/09/20 05/09/20 12:59 12:59 12:59 WBC 11.8 H RBC MCV 96 H MCH 34 H MCHC 35 H RDW Lymph % (Auto) 6.9 L Lymph # (Auto) 0.8 L Seg Neutrophils % 87.5 H Seg Neuts % (Manual) Lymphocytes % (Manual) Seg Neutrophils # 10.3 H Seg Neutrophils # Man Lymphocytes # (Manual) D-Dimer ABG pH POC ABG pCO2 POC ABG pO2 ABG pO2 ABG HCO3 ABG O2 Saturation ABG Base Excess ABG Hemoglobin ABG Oxyhemoglobin ABG Sodium ABG Potassium ABG Chloride ABG Glucose Oxyhemoglobin Sodium 130 L Potassium 3.5 L Chloride 86.4 L Carbon Dioxide BUN 33 H Creatinine 2.3 H Glucose 156 H POC Glucose Lactic Acid Calcium Magnesium Ferritin Total Bilirubin 3.40 H Direct Bilirubin 1.7 H AST 385 H ALT 134 H Alkaline Phosphatase Lactate Dehydrogenase C-Reactive Protein Total Protein Albumin 3.0 L Triglycerides Arterial Blood Glucose Arterial Blood Ionized Calcium Urine WBC (Auto) Coronavirus (PCR) SARS-CoV-2 IgG Ab 05/09/20 05/09/20 05/09/20 12:59 12:59 12:59 WBC RBC MCV MCH MCHC RDW Lymph % (Auto) Lymph # (Auto) Seg Neutrophils % Seg Neuts % (Manual) Lymphocytes % (Manual) Seg Neutrophils # Seg Neutrophils # Man Lymphocytes # (Manual) D-Dimer 3242.51 H ABG pH POC ABG pCO2 POC ABG pO2 ABG pO2 ABG HCO3 ABG O2 Saturation ABG Base Excess ABG Hemoglobin ABG Oxyhemoglobin ABG Sodium ABG Potassium ABG Chloride ABG Glucose Oxyhemoglobin Sodium Potassium Chloride Carbon Dioxide BUN Creatinine Glucose 158 H POC Glucose Lactic Acid 3.50 H* Calcium Magnesium Ferritin Total Bilirubin Direct Bilirubin AST ALT Alkaline Phosphatase Lactate Dehydrogenase 2166 H C-Reactive Protein 39.00 H Total Protein Albumin Triglycerides Arterial Blood Glucose Arterial Blood Ionized Calcium Urine WBC (Auto) Coronavirus (PCR) SARS-CoV-2 IgG Ab 05/09/20 05/09/20 05/09/20 12:59 14:20 14:20 WBC RBC MCV MCH MCHC RDW Lymph % (Auto) Lymph # (Auto) Seg Neutrophils % Seg Neuts % (Manual) Lymphocytes % (Manual) Seg Neutrophils # Seg Neutrophils # Man Lymphocytes # (Manual) D-Dimer 2861.78 H ABG pH POC ABG pCO2 POC ABG pO2 ABG pO2 ABG HCO3 ABG O2 Saturation ABG Base Excess ABG Hemoglobin ABG Oxyhemoglobin ABG Sodium ABG Potassium ABG Chloride ABG Glucose Oxyhemoglobin Sodium Potassium Chloride Carbon Dioxide BUN Creatinine Glucose POC Glucose Lactic Acid 2.20 H* Calcium Magnesium Ferritin 25777.0 H Total Bilirubin Direct Bilirubin AST ALT Alkaline Phosphatase Lactate Dehydrogenase C-Reactive Protein Total Protein Albumin Triglycerides Arterial Blood Glucose Arterial Blood Ionized Calcium Urine WBC (Auto) Coronavirus (PCR) SARS-CoV-2 IgG Ab 05/09/20 05/09/20 05/09/20 14:20 14:20 15:56 WBC RBC MCV MCH MCHC RDW Lymph % (Auto) Lymph # (Auto) Seg Neutrophils % Seg Neuts % (Manual) Lymphocytes % (Manual) Seg Neutrophils # Seg Neutrophils # Man Lymphocytes # (Manual) D-Dimer ABG pH POC ABG pCO2 POC ABG pO2 57.3 L ABG pO2 ABG HCO3 ABG O2 Saturation ABG Base Excess ABG Hemoglobin ABG Oxyhemoglobin 86.3 L ABG Sodium 129.9 L ABG Potassium ABG Chloride ABG Glucose 146 H Oxyhemoglobin Sodium Potassium Chloride Carbon Dioxide BUN Creatinine Glucose 143 H POC Glucose Lactic Acid Calcium Magnesium Ferritin 39135.0 H Total Bilirubin Direct Bilirubin AST ALT Alkaline Phosphatase Lactate Dehydrogenase 1953 H C-Reactive Protein 33.50 H Total Protein Albumin Triglycerides Arterial Blood Glucose 146 H Arterial Blood Ionized Calcium 3.9 L Urine WBC (Auto) Coronavirus (PCR) SARS-CoV-2 IgG Ab 05/10/20 05/10/20 05/10/20 10:32 10:32 18:50 WBC 15.4 H RBC MCV 97 H MCH 33 H MCHC RDW 13.1 L Lymph % (Auto) Lymph # (Auto) Seg Neutrophils % Seg Neuts % (Manual) 89.0 H Lymphocytes % (Manual) 8.0 L Seg Neutrophils # Seg Neutrophils # Man 13.7 H Lymphocytes # (Manual) D-Dimer ABG pH POC ABG pCO2 POC ABG pO2 ABG pO2 ABG HCO3 ABG O2 Saturation ABG Base Excess ABG Hemoglobin ABG Oxyhemoglobin ABG Sodium ABG Potassium ABG Chloride ABG Glucose Oxyhemoglobin Sodium 136 L Potassium Chloride 97.4 L Carbon Dioxide BUN 37 H Creatinine 1.7 H Glucose 209 H POC Glucose Lactic Acid Calcium Magnesium Ferritin > 2000.0 H Total Bilirubin Direct Bilirubin AST ALT Alkaline Phosphatase Lactate Dehydrogenase C-Reactive Protein Total Protein Albumin Triglycerides Arterial Blood Glucose Arterial Blood Ionized Calcium Urine WBC (Auto) Coronavirus (PCR) SARS-CoV-2 IgG Ab 05/10/20 05/10/20 05/10/20 18:50 19:00 Unknown WBC RBC MCV MCH MCHC RDW Lymph % (Auto) Lymph # (Auto) Seg Neutrophils % Seg Neuts % (Manual) Lymphocytes % (Manual) Seg Neutrophils # Seg Neutrophils # Man Lymphocytes # (Manual) D-Dimer > 86175 H ABG pH POC ABG pCO2 POC ABG pO2 ABG pO2 ABG HCO3 ABG O2 Saturation ABG Base Excess ABG Hemoglobin ABG Oxyhemoglobin ABG Sodium ABG Potassium ABG Chloride ABG Glucose Oxyhemoglobin Sodium Potassium Chloride Carbon Dioxide BUN Creatinine Glucose POC Glucose Lactic Acid Calcium Magnesium Ferritin Total Bilirubin Direct Bilirubin AST ALT Alkaline Phosphatase Lactate Dehydrogenase 1879 H C-Reactive Protein 24.80 H Total Protein Albumin Triglycerides Arterial Blood Glucose Arterial Blood Ionized Calcium Urine WBC (Auto) 11.0 H Coronavirus (PCR) SARS-CoV-2 IgG Ab 05/10/20 05/11/20 05/11/20 Unknown 07:30 07:30 WBC RBC MCV MCH MCHC RDW Lymph % (Auto) Lymph # (Auto) Seg Neutrophils % Seg Neuts % (Manual) Lymphocytes % (Manual) Seg Neutrophils # Seg Neutrophils # Man Lymphocytes # (Manual) D-Dimer > 2000 H ABG pH POC ABG pCO2 POC ABG pO2 ABG pO2 ABG HCO3 ABG O2 Saturation ABG Base Excess ABG Hemoglobin ABG Oxyhemoglobin ABG Sodium ABG Potassium ABG Chloride ABG Glucose Oxyhemoglobin Sodium Potassium Chloride 96.3 L Carbon Dioxide BUN 36 H Creatinine Glucose 161 H POC Glucose Lactic Acid Calcium 8.3 L Magnesium Ferritin Total Bilirubin 1.50 H Direct Bilirubin 0.6 H AST 178 H ALT 111 H Alkaline Phosphatase Lactate Dehydrogenase C-Reactive Protein Total Protein Albumin 3.0 L Triglycerides Arterial Blood Glucose Arterial Blood Ionized Calcium Urine WBC (Auto) Coronavirus (PCR) Positive A SARS-CoV-2 IgG Ab 05/11/20 05/11/20 05/11/20 07:30 07:30 07:30 WBC RBC MCV MCH MCHC RDW Lymph % (Auto) Lymph # (Auto) Seg Neutrophils % Seg Neuts % (Manual) Lymphocytes % (Manual) Seg Neutrophils # Seg Neutrophils # Man Lymphocytes # (Manual) D-Dimer ABG pH POC ABG pCO2 POC ABG pO2 ABG pO2 ABG HCO3 ABG O2 Saturation ABG Base Excess ABG Hemoglobin ABG Oxyhemoglobin ABG Sodium ABG Potassium ABG Chloride ABG Glucose Oxyhemoglobin Sodium Potassium Chloride Carbon Dioxide BUN Creatinine Glucose POC Glucose Lactic Acid Calcium Magnesium Ferritin 54850.0 H Total Bilirubin Direct Bilirubin AST ALT Alkaline Phosphatase Lactate Dehydrogenase 1523 H C-Reactive Protein 12.90 H Total Protein Albumin Triglycerides Arterial Blood Glucose Arterial Blood Ionized Calcium Urine WBC (Auto) Coronavirus (PCR) SARS-CoV-2 IgG Ab Reactive A 05/13/20 05/13/20 05/15/20 05:20 05:20 08:15 WBC RBC MCV MCH MCHC RDW Lymph % (Auto) Lymph # (Auto) Seg Neutrophils % Seg Neuts % (Manual) Lymphocytes % (Manual) Seg Neutrophils # Seg Neutrophils # Man Lymphocytes # (Manual) D-Dimer > 92162 H 5318.28 H ABG pH POC ABG pCO2 POC ABG pO2 ABG pO2 ABG HCO3 ABG O2 Saturation ABG Base Excess ABG Hemoglobin ABG Oxyhemoglobin ABG Sodium ABG Potassium ABG Chloride ABG Glucose Oxyhemoglobin Sodium Potassium Chloride Carbon Dioxide 32 H BUN 30 H Creatinine Glucose 156 H POC Glucose Lactic Acid Calcium Magnesium 2.60 H Ferritin Total Bilirubin 1.40 H Direct Bilirubin AST 121 H ALT 119 H Alkaline Phosphatase Lactate Dehydrogenase 957 H C-Reactive Protein 4.00 H Total Protein Albumin 3.0 L Triglycerides Arterial Blood Glucose Arterial Blood Ionized Calcium Urine WBC (Auto) Coronavirus (PCR) SARS-CoV-2 IgG Ab 05/15/20 05/15/20 05/15/20 08:15 08:15 08:15 WBC 12.4 H RBC MCV 98 H MCH 33 H MCHC RDW Lymph % (Auto) 9.7 L Lymph # (Auto) Seg Neutrophils % 86.8 H Seg Neuts % (Manual) Lymphocytes % (Manual) Seg Neutrophils # 10.8 H Seg Neutrophils # Man Lymphocytes # (Manual) D-Dimer ABG pH POC ABG pCO2 POC ABG pO2 ABG pO2 ABG HCO3 ABG O2 Saturation ABG Base Excess ABG Hemoglobin ABG Oxyhemoglobin ABG Sodium ABG Potassium ABG Chloride ABG Glucose Oxyhemoglobin Sodium Potassium Chloride 94.8 L Carbon Dioxide 32 H BUN 22 H Creatinine Glucose 115 H POC Glucose Lactic Acid Calcium 8.3 L Magnesium Ferritin 2494.0 H Total Bilirubin Direct Bilirubin AST 73 H ALT 121 H Alkaline Phosphatase Lactate Dehydrogenase 835 H C-Reactive Protein 3.40 H Total Protein 6.1 L Albumin 3.0 L Triglycerides Arterial Blood Glucose Arterial Blood Ionized Calcium Urine WBC (Auto) Coronavirus (PCR) SARS-CoV-2 IgG Ab 05/17/20 05/17/20 05/17/20 05:50 05:50 05:50 WBC RBC MCV MCH MCHC RDW Lymph % (Auto) Lymph # (Auto) Seg Neutrophils % Seg Neuts % (Manual) Lymphocytes % (Manual) Seg Neutrophils # Seg Neutrophils # Man Lymphocytes # (Manual) D-Dimer 2911.42 H ABG pH POC ABG pCO2 POC ABG pO2 ABG pO2 ABG HCO3 ABG O2 Saturation ABG Base Excess ABG Hemoglobin ABG Oxyhemoglobin ABG Sodium ABG Potassium ABG Chloride ABG Glucose Oxyhemoglobin Sodium 136 L Potassium Chloride 96.0 L Carbon Dioxide 34 H BUN 22 H Creatinine Glucose 140 H POC Glucose Lactic Acid Calcium Magnesium Ferritin 2082.0 H Total Bilirubin Direct Bilirubin AST ALT 75 H Alkaline Phosphatase Lactate Dehydrogenase 601 H C-Reactive Protein 2.70 H Total Protein Albumin 2.9 L Triglycerides Arterial Blood Glucose Arterial Blood Ionized Calcium Urine WBC (Auto) Coronavirus (PCR) SARS-CoV-2 IgG Ab 05/17/20 05/18/20 05/20/20 05:50 12:22 08:16 WBC RBC MCV 98 H MCH 33 H MCHC RDW Lymph % (Auto) 8.0 L Lymph # (Auto) 0.8 L Seg Neutrophils % 89.3 H Seg Neuts % (Manual) Lymphocytes % (Manual) Seg Neutrophils # 8.8 H Seg Neutrophils # Man Lymphocytes # (Manual) D-Dimer 1887.82 H ABG pH POC ABG pCO2 POC ABG pO2 ABG pO2 ABG HCO3 ABG O2 Saturation ABG Base Excess ABG Hemoglobin ABG Oxyhemoglobin ABG Sodium ABG Potassium ABG Chloride ABG Glucose Oxyhemoglobin Sodium Potassium Chloride Carbon Dioxide BUN Creatinine Glucose POC Glucose 178 H Lactic Acid Calcium Magnesium Ferritin Total Bilirubin Direct Bilirubin AST ALT Alkaline Phosphatase Lactate Dehydrogenase C-Reactive Protein Total Protein Albumin Triglycerides Arterial Blood Glucose Arterial Blood Ionized Calcium Urine WBC (Auto) Coronavirus (PCR) SARS-CoV-2 IgG Ab 05/20/20 05/20/20 05/21/20 08:16 08:16 21:10 WBC RBC MCV MCH MCHC RDW Lymph % (Auto) Lymph # (Auto) Seg Neutrophils % Seg Neuts % (Manual) Lymphocytes % (Manual) Seg Neutrophils # Seg Neutrophils # Man Lymphocytes # (Manual) D-Dimer ABG pH 7.483 H POC ABG pCO2 POC ABG pO2 ABG pO2 50.0 L ABG HCO3 27.0 H ABG O2 Saturation 86.2 L ABG Base Excess 3.7 H ABG Hemoglobin ABG Oxyhemoglobin ABG Sodium ABG Potassium ABG Chloride ABG Glucose Oxyhemoglobin 84.2 L Sodium Potassium Chloride Carbon Dioxide BUN Creatinine Glucose POC Glucose Lactic Acid Calcium Magnesium Ferritin 1960.0 H Total Bilirubin Direct Bilirubin AST ALT Alkaline Phosphatase Lactate Dehydrogenase 705 H C-Reactive Protein 3.10 H Total Protein Albumin Triglycerides Arterial Blood Glucose Arterial Blood Ionized Calcium Urine WBC (Auto) Coronavirus (PCR) SARS-CoV-2 IgG Ab 05/22/20 05/22/20 05/22/20 04:01 07:53 07:53 WBC 19.2 H RBC MCV 98 H MCH 34 H MCHC RDW Lymph % (Auto) Lymph # (Auto) Seg Neutrophils % Seg Neuts % (Manual) 96.0 H Lymphocytes % (Manual) 1.0 L Seg Neutrophils # Seg Neutrophils # Man 18.4 H Lymphocytes # (Manual) 0.2 L D-Dimer ABG pH POC ABG pCO2 53.8 H POC ABG pO2 125.5 H ABG pO2 ABG HCO3 ABG O2 Saturation ABG Base Excess ABG Hemoglobin ABG Oxyhemoglobin ABG Sodium 131.8 L ABG Potassium 4.8 H ABG Chloride 94.0 L ABG Glucose 163 H Oxyhemoglobin Sodium 131 L Potassium Chloride 93.4 L Carbon Dioxide BUN 40 H Creatinine Glucose 176 H POC Glucose Lactic Acid Calcium Magnesium 2.70 H Ferritin Total Bilirubin 1.80 H Direct Bilirubin AST 45 H ALT 116 H Alkaline Phosphatase 181 H Lactate Dehydrogenase C-Reactive Protein Total Protein Albumin 2.6 L Triglycerides Arterial Blood Glucose 163 H Arterial Blood Ionized Calcium 4.5 L Urine WBC (Auto) Coronavirus (PCR) SARS-CoV-2 IgG Ab 05/23/20 05/24/20 05/24/20 04:17 03:07 04:08 WBC RBC MCV MCH MCHC RDW Lymph % (Auto) Lymph # (Auto) Seg Neutrophils % Seg Neuts % (Manual) Lymphocytes % (Manual) Seg Neutrophils # Seg Neutrophils # Man Lymphocytes # (Manual) D-Dimer ABG pH 7.328 L POC ABG pCO2 POC ABG pO2 ABG pO2 72.8 L 73.4 L ABG HCO3 31.0 H 34.0 H ABG O2 Saturation 93.5 L ABG Base Excess 3.5 H 7.7 H ABG Hemoglobin 13.3 L 12.1 L ABG Oxyhemoglobin ABG Sodium ABG Potassium ABG Chloride ABG Glucose Oxyhemoglobin 91.5 L 94.3 L Sodium Potassium Chloride Carbon Dioxide BUN Creatinine Glucose POC Glucose 155 H Lactic Acid Calcium Magnesium Ferritin Total Bilirubin Direct Bilirubin AST ALT Alkaline Phosphatase Lactate Dehydrogenase C-Reactive Protein Total Protein Albumin Triglycerides Arterial Blood Glucose Arterial Blood Ionized Calcium Urine WBC (Auto) Coronavirus (PCR) SARS-CoV-2 IgG Ab 05/24/20 05/24/20 05/24/20 09:33 12:21 17:52 WBC RBC MCV MCH MCHC RDW Lymph % (Auto) Lymph # (Auto) Seg Neutrophils % Seg Neuts % (Manual) Lymphocytes % (Manual) Seg Neutrophils # Seg Neutrophils # Man Lymphocytes # (Manual) D-Dimer ABG pH POC ABG pCO2 POC ABG pO2 ABG pO2 ABG HCO3 ABG O2 Saturation ABG Base Excess ABG Hemoglobin ABG Oxyhemoglobin ABG Sodium ABG Potassium ABG Chloride ABG Glucose Oxyhemoglobin Sodium Potassium Chloride Carbon Dioxide 34 H D BUN 28 H Creatinine 0.7 L Glucose 168 H POC Glucose 173 H 164 H Lactic Acid Calcium Magnesium Ferritin Total Bilirubin Direct Bilirubin AST ALT Alkaline Phosphatase Lactate Dehydrogenase C-Reactive Protein Total Protein Albumin Triglycerides Arterial Blood Glucose Arterial Blood Ionized Calcium Urine WBC (Auto) Coronavirus (PCR) SARS-CoV-2 IgG Ab 05/24/20 05/25/20 05/25/20 23:47 04:29 05:46 WBC RBC MCV MCH MCHC RDW Lymph % (Auto) Lymph # (Auto) Seg Neutrophils % Seg Neuts % (Manual) Lymphocytes % (Manual) Seg Neutrophils # Seg Neutrophils # Man Lymphocytes # (Manual) D-Dimer ABG pH POC ABG pCO2 68.6 H POC ABG pO2 ABG pO2 ABG HCO3 ABG O2 Saturation ABG Base Excess ABG Hemoglobin ABG Oxyhemoglobin ABG Sodium ABG Potassium 4.7 H ABG Chloride ABG Glucose 226 H Oxyhemoglobin Sodium Potassium Chloride Carbon Dioxide BUN Creatinine Glucose POC Glucose 171 H 201 H Lactic Acid Calcium Magnesium Ferritin Total Bilirubin Direct Bilirubin AST ALT Alkaline Phosphatase Lactate Dehydrogenase C-Reactive Protein Total Protein Albumin Triglycerides Arterial Blood Glucose 226 H Arterial Blood Ionized Calcium Urine WBC (Auto) Coronavirus (PCR) SARS-CoV-2 IgG Ab 05/25/20 05/25/20 05/25/20 08:37 08:37 12:38 WBC 12.0 H RBC 3.64 L MCV 99 H MCH 33 H MCHC RDW Lymph % (Auto) Lymph # (Auto) Seg Neutrophils % Seg Neuts % (Manual) Lymphocytes % (Manual) Seg Neutrophils # Seg Neutrophils # Man Lymphocytes # (Manual) D-Dimer ABG pH POC ABG pCO2 POC ABG pO2 ABG pO2 ABG HCO3 ABG O2 Saturation ABG Base Excess ABG Hemoglobin ABG Oxyhemoglobin ABG Sodium ABG Potassium ABG Chloride ABG Glucose Oxyhemoglobin Sodium Potassium Chloride 97.3 L Carbon Dioxide 35 H BUN 25 H Creatinine 0.7 L Glucose 191 H POC Glucose 182 H Lactic Acid Calcium Magnesium Ferritin Total Bilirubin Direct Bilirubin AST ALT Alkaline Phosphatase Lactate Dehydrogenase C-Reactive Protein Total Protein Albumin Triglycerides Arterial Blood Glucose Arterial Blood Ionized Calcium Urine WBC (Auto) Coronavirus (PCR) SARS-CoV-2 IgG Ab 05/25/20 05/26/20 05/26/20 18:16 00:06 04:50 WBC RBC MCV MCH MCHC RDW Lymph % (Auto) Lymph # (Auto) Seg Neutrophils % Seg Neuts % (Manual) Lymphocytes % (Manual) Seg Neutrophils # Seg Neutrophils # Man Lymphocytes # (Manual) D-Dimer ABG pH POC ABG pCO2 POC ABG pO2 ABG pO2 221.5 H ABG HCO3 40.4 H ABG O2 Saturation 99.3 H ABG Base Excess 12.8 H ABG Hemoglobin 10.4 L ABG Oxyhemoglobin ABG Sodium ABG Potassium ABG Chloride ABG Glucose Oxyhemoglobin Sodium Potassium Chloride Carbon Dioxide BUN Creatinine Glucose POC Glucose 176 H 152 H Lactic Acid Calcium Magnesium Ferritin Total Bilirubin Direct Bilirubin AST ALT Alkaline Phosphatase Lactate Dehydrogenase C-Reactive Protein Total Protein Albumin Triglycerides Arterial Blood Glucose Arterial Blood Ionized Calcium Urine WBC (Auto) Coronavirus (PCR) SARS-CoV-2 IgG Ab 05/26/20 05/26/20 05/26/20 06:11 07:51 07:51 WBC 13.4 H RBC 3.64 L MCV 98 H MCH 33 H MCHC RDW Lymph % (Auto) Lymph # (Auto) Seg Neutrophils % Seg Neuts % (Manual) Lymphocytes % (Manual) Seg Neutrophils # Seg Neutrophils # Man Lymphocytes # (Manual) D-Dimer ABG pH POC ABG pCO2 POC ABG pO2 ABG pO2 ABG HCO3 ABG O2 Saturation ABG Base Excess ABG Hemoglobin ABG Oxyhemoglobin ABG Sodium ABG Potassium ABG Chloride ABG Glucose Oxyhemoglobin Sodium Potassium Chloride 96.6 L Carbon Dioxide 39 H BUN 29 H Creatinine 0.7 L Glucose 174 H POC Glucose 165 H Lactic Acid Calcium Magnesium Ferritin Total Bilirubin Direct Bilirubin AST ALT Alkaline Phosphatase Lactate Dehydrogenase C-Reactive Protein Total Protein Albumin Triglycerides Arterial Blood Glucose Arterial Blood Ionized Calcium Urine WBC (Auto) Coronavirus (PCR) SARS-CoV-2 IgG Ab 05/26/20 05/27/20 05/27/20 23:23 03:43 05:29 WBC RBC MCV MCH MCHC RDW Lymph % (Auto) Lymph # (Auto) Seg Neutrophils % Seg Neuts % (Manual) Lymphocytes % (Manual) Seg Neutrophils # Seg Neutrophils # Man Lymphocytes # (Manual) D-Dimer ABG pH 7.480 H POC ABG pCO2 52.4 H POC ABG pO2 61.4 L ABG pO2 ABG HCO3 ABG O2 Saturation ABG Base Excess ABG Hemoglobin ABG Oxyhemoglobin ABG Sodium 134.9 L ABG Potassium ABG Chloride 95.0 L ABG Glucose 221 H Oxyhemoglobin Sodium Potassium Chloride Carbon Dioxide BUN Creatinine Glucose POC Glucose 169 H 227 H Lactic Acid Calcium Magnesium Ferritin Total Bilirubin Direct Bilirubin AST ALT Alkaline Phosphatase Lactate Dehydrogenase C-Reactive Protein Total Protein Albumin Triglycerides Arterial Blood Glucose 221 H Arterial Blood Ionized Calcium 4.5 L Urine WBC (Auto) Coronavirus (PCR) SARS-CoV-2 IgG Ab 05/27/20 05/27/20 05/27/20 07:19 12:18 13:50 WBC RBC MCV MCH MCHC RDW Lymph % (Auto) Lymph # (Auto) Seg Neutrophils % Seg Neuts % (Manual) Lymphocytes % (Manual) Seg Neutrophils # Seg Neutrophils # Man Lymphocytes # (Manual) D-Dimer ABG pH POC ABG pCO2 POC ABG pO2 ABG pO2 ABG HCO3 ABG O2 Saturation ABG Base Excess ABG Hemoglobin ABG Oxyhemoglobin ABG Sodium ABG Potassium ABG Chloride ABG Glucose Oxyhemoglobin Sodium Potassium Chloride Carbon Dioxide BUN Creatinine Glucose POC Glucose 114 H 148 H Lactic Acid Calcium Magnesium Ferritin Total Bilirubin Direct Bilirubin AST ALT Alkaline Phosphatase Lactate Dehydrogenase C-Reactive Protein Total Protein Albumin Triglycerides 247 H Arterial Blood Glucose Arterial Blood Ionized Calcium Urine WBC (Auto) Coronavirus (PCR) SARS-CoV-2 IgG Ab Chest x-ray: pending Allied health notes reviewed: nursing
--- NOTE | 2020-05-27 21:49 | Progress Note ---
Assessment and Plan Assessment and Plan Patient intubated last night because of persistent hypoxia --Elevated D-dimers; on full dose anticoagulation However ID requested to get CTA chest, patient is unstable to go for CT As he is requiring high flow oxygen. -- Acute hypoxemic respiratory failure; Patient intubated and on vent support --Elevated D-dimers; check CTA to rule out PE Lower extremity venous Doppler to rule out DVT Patient is already on full dose anticoagulation per COVID-19 protocol -- Novel coronavirus infection with Bilateral pneumonia Coronavirus protocol: IV steroid therapy, IV remdesivir, isolation precautions, contact precautions, prone positioning while in bed, pulmonary toilet. consulted ID --Severe sepsis, due to COVID 19 PNA cont to treat for COVID -- Acute kidney injury (SEN) , likely vasomotor nephropathy Resolved, IV fluids, avoid nephrotoxins -- Alcohol dependence; no episodes of withdrawal symptoms Thiamine, folic acid, multivitamin, CIWA protocol. -- Elevated liver function tests Suspected secondary to alcoholic liver disease. Supportive care, alcohol cessation, patient counseled. -- DVT prophylaxis prophylactic AC with lovenox for elevated D-dimer We will closely monitor patient and adjust management as needed Patient has severe Covid pneumonia, severe hypoxia Critically ill very poor prognosis Full CODE STATUS The high probability of a clinically significant, sudden or life threatening deterioration of the [Covid pneumonia, ID, respiratory, liver] system(s) required my full and direct attention, intervention and personal management. The aggregate critical care time was [32] minutes. This time is in addition to time spent performing reported procedures but includes the following: [x] Data Review and interpretation [x] Patient assessment and monitoring of vital signs [x] Documentation [x] Medication orders and management. Subjective Date of service: 05/27/20 Principal diagnosis: Ac hypoxemic resp failure; COVID-19; Severe Sepsis; Shaggy PNA; Alcohol Abuse Interval history: Brief history; 50 YO Male with Obesity, ETOH Dependence presents to ED for evaluation for shortness of breath, generalized weakness, fatigue, malaise, body aches, decreased exercise tolerance over the past 5 days. EMS was notified and upon arrival the patient was found to be in distress with a pulse oximetry of 76% on room air as well as fever to 103 F. In the ER chest x-ray and was found to have bilateral pneumonia. Patient admitted to medical floor and initiated on pneumonia protocol as well as COVID-19 protocol. Patient severe Covid pneumonia, with persistent severe hypoxemia requiring very high flow oxygen Today on continuous BiPAP, patient is in mild distress, critically ill with very poor prognosis. Patient was on high flow oxygen but could not be maintained above 90 hence patient intubated last night electively 05/17/2020; patient with severe COVID-19 pneumonia, in isolation room Patient is on high flow oxygen, and BiPAP 05/18/20; patient feels slightly better still hypoxic, requiring continuous high flow oxygen and BiPAP Respiratory team trying to wean 05/19/20; patient is severely hypoxemic requiring continuous BiPAP today, complains of generalized weakness Trying to wean off high flow oxygen, patient is in isolation 05/20/2020; patient remains on high flow oxygen/BiPAP/100% nonrebreather. Still is hypoxemic Has sinus tachycardia patient in mild distress Wean off high flow oxygen as tolerated, pulmonary critical following 05/21/20; patient is critically ill, on continuous BiPAP remains hypoxemic in mild distress Patient has severe Covid Pneumonia with persistent hypoxemia and poor prognosis 05/22/2020 Patient was intubated last night because of persistent hypoxemia Objective - Constitutional Vitals: Vital Signs - 12hr 05/27/20 05/27/20 05/27/20 10:00 11:00 11:31 Temperature Pulse Rate 84 89 95 H Pulse Rate [ From Monitor] Respiratory 18 20 Rate Blood Pressure 98/60 97/60 97/60 O2 Sat by Pulse 95 96 94 Oximetry 05/27/20 05/27/20 05/27/20 12:00 13:00 14:00 Temperature 98.7 F Pulse Rate 86 90 85 Pulse Rate [ 114 H From Monitor] Respiratory 22 20 20 Rate Blood Pressure 98/61 99/59 97/61 O2 Sat by Pulse 95 96 96 Oximetry 05/27/20 05/27/20 05/27/20 15:00 16:00 16:29 Temperature 99.9 F H Pulse Rate 91 H 109 H 122 H Pulse Rate [ 114 H From Monitor] Respiratory 20 18 Rate Blood Pressure 100/66 100/66 111/74 O2 Sat by Pulse 92 89 89 Oximetry 05/27/20 05/27/20 05/27/20 17:00 18:00 19:00 Temperature Pulse Rate 114 H 153 H 135 H Pulse Rate [ From Monitor] Respiratory 14 18 21 Rate Blood Pressure 111/74 118/80 134/80 O2 Sat by Pulse 90 90 98 Oximetry 05/27/20 20:00 Temperature 98.8 F Pulse Rate 119 H Pulse Rate [ From Monitor] Respiratory Rate Blood Pressure 82/50 O2 Sat by Pulse 99 Oximetry General appearance: Present: no acute distress, well-nourished - EENT Eyes: PERRL, EOM intact ENT: hearing intact, clear oral mucosa Ears: bilateral: normal - Neck Neck: supple, normal ROM - Respiratory Respiratory effort: normal Respiratory: bilateral: CTA - Breasts Breasts: normal - Cardiovascular Rhythm: regular Heart Sounds: Present: S1 & S2. Absent: gallop, rub Extremities: pulses intact, No edema, normal color, Full ROM - Gastrointestinal General gastrointestinal: Present: soft, non-tender, non-distended, normal bowel sounds - Genitourinary Male genitourinary: normal - Integumentary Integumentary: clear, warm, dry - Musculoskeletal Musculoskeletal: 1, strength equal bilaterally - Neurologic Neurologic: moves all extremities - Psychiatric Psychiatric: memory intact, appropriate mood/affect, intact judgment & insight - Labs CBC & Chem 7: 05/26/20 07:51 05/26/20 07:51 Labs: Abnormal lab results 05/26/20 05/27/20 05/27/20 Range/Units 23:23 03:43 05:29 ABG pH 7.480 H (7.320-7.450) POC ABG pCO2 52.4 H (32.0-48.0) mmHg POC ABG pO2 61.4 L (83-108) mmHg ABG Sodium 134.9 L (136.0-145.0) mmol/L ABG Chloride 95.0 L (98-107) mmol/L ABG Glucose 221 H (65-95) mg/dL POC Glucose 169 H 227 H (70-105) mg/dL Triglycerides (2-149) mg/dL Arterial Blood Glucose 221 H (65-95) mg/dL Arterial Blood Ionized Calcium 4.5 L (4.6-5.3) mg/dL 05/27/20 05/27/20 05/27/20 Range/Units 07:19 12:18 13:50 ABG pH (7.320-7.450) POC ABG pCO2 (32.0-48.0) mmHg POC ABG pO2 (83-108) mmHg ABG Sodium (136.0-145.0) mmol/L ABG Chloride (98-107) mmol/L ABG Glucose (65-95) mg/dL POC Glucose 114 H 148 H (70-105) mg/dL Triglycerides 247 H (2-149) mg/dL Arterial Blood Glucose (65-95) mg/dL Arterial Blood Ionized Calcium (4.6-5.3) mg/dL
[2020-05-28] MEDS: METOPROLOL TARTRATE 25 MG TAB PO SCH ×3 (03:00→21:28)
--- NOTE | 2020-05-28 04:48 | XRay Report ---
CHEST 1 VIEW 05/28/2020 4:30 AM INDICATION / CLINICAL INFORMATION: follow up respiratory failure. COMPARISON: 05/27/2020 FINDINGS: SUPPORT DEVICES: Stable, satisfactory device positioning. HEART / MEDIASTINUM: Stable. LUNGS / PLEURA: Stable patchy bilateral pulmonary opacities. No pneumothorax. ADDITIONAL FINDINGS: No significant additional findings. IMPRESSION: 1. No significant change. Signer Name: Lance Lynch MD Signed: 05/28/2020 4:44 AM Workstation Name: [id number]
[2020-05-28] MEDS: methylPREDNISolone Sod Succinate 40 MG/1 ML INJ IV SCH ×2 (08:30→18:17)
[2020-05-28] MEDS: ENOXAPARIN 120 MG/0.8 ML INJ SUB-Q SCH ×2 (09:37→21:29)
[2020-05-28] MEDS: FOLIC ACID 1 MG TAB PO SCH (09:38)
[2020-05-28] MEDS: FAMOTIDINE 20 MG TAB PO SCH ×2 (09:38→21:30)
[2020-05-28] MEDS: fentaNYL DRIP Premix 2,000 MCG/100 ML BAG IV SCH ×2 (12:06→16:46)
--- NOTE | 2020-05-28 12:06 | Progress Note ---
Assessment and Plan Cultures: Blood culture 04/28/2020 no growth today SARS CoV2 PCR positive Sputum and urine culture with no significant growth Assessment: 50 years old male with history of alcohol dependence and obesity admitted on 05/09/2020 due to 5-day history of generalized malaise, fatigue, body aches, dyspnea exertion, cough and shortness of breath, tested positive for COVID-19 2 days before admission: #Severe sepsis: likely due to bilateral pneumonia from COVID. #Severe COVID pneumonia: Chest x-ray with bilateral patchy infiltrates. SARS-CoV-2 PCR positive. Inflammatory markers markedly elevated, D-dimer 10,000, ferritin 38,000. Noted elevated procalcitonin likely due to elevated creatinine, however treated for bacterial component given severe sepsis. SARS CoV-2 IgG positive patient is NOT a candidate for COVID convalescent plasma. Completed remdesivir. On steroids. #Acute hypoxemic respiratory failure: intubated on 05/22/2020. #Elevated LFTs: from COVID #Elevated D-dimer: Venous ultrasound no DVT. Recommendations: -continue steroids: on Solu-Medrol, wean per ICU -Monitor inflammatory markers - ferritin, Ddimer, CRP, LDH every 3 days -Continue anticoagulation per System Protocol based on d-dimer ID will sign off. Please call with questions. Julio Bennett MD, FACP [facility] O: [phone] F: [phone] Subjective Date of service: 05/28/20 Principal diagnosis: Ac hypoxemic resp failure; COVID-19; Severe Sepsis; Shaggy PNA; Alcohol Abuse Interval history: No fever. Remains on the vent. Objective - Exam Narrative Exam: Physical Exam (reviewed in chart due to PPE conservation and minimize risk of transmission) Constitutional: limited due to PPE conservation strategy Head, Ears, Nose: limited due to PPE conservation strategy Eyes: limited due to PPE conservation strategy Neck: limited due to PPE conservation strategy Oral: limited due to PPE conservation strategy Cardiovascular: limited due to PPE conservation strategy Respiratory: limited due to PPE conservation strategy GI: limited due to PPE conservation strategy Musculoskeletal: limited due to PPE conservation strategy Skin: limited due to PPE conservation strategy Hem/Lymphatic: limited due to PPE conservation strategy Psych: limited due to PPE conservation strategy Neurological: limited due to PPE conservation strategy - Constitutional Vitals: Vital Signs Temp Pulse Resp BP Pulse Ox 99.1 F 99 H 10 L 86/52 93 05/28/20 03:56 05/28/20 11:00 05/28/20 11:00 05/28/20 11:00 05/28/20 11:00 Temperature -Last 24 Hours Temperature 99.1 F Temperature 98.9 F Temperature 98.8 F Temperature 99.9 F - Labs CBC & Chem 7: 05/26/20 07:51 05/26/20 07:51 Labs: Abnormal lab results 05/27/20 05/27/20 05/28/20 Range/Units 12:18 13:50 00:13 POC ABG pCO2 (32.0-48.0) mmHg POC ABG pO2 (83-108) mmHg ABG Chloride (98-107) mmol/L ABG Glucose (65-95) mg/dL POC Glucose 114 H 148 H 155 H (70-105) mg/dL Arterial Blood Glucose (65-95) mg/dL 05/28/20 05/28/20 Range/Units 04:16 05:22 POC ABG pCO2 64.4 H (32.0-48.0) mmHg POC ABG pO2 60.5 L (83-108) mmHg ABG Chloride 95.0 L (98-107) mmol/L ABG Glucose 209 H (65-95) mg/dL POC Glucose 186 H (70-105) mg/dL Arterial Blood Glucose 209 H (65-95) mg/dL
--- NOTE | 2020-05-28 12:20 | Progress Note ---
Assessment and Plan Acute hypoxemic respiratory failure due to COVID-19 Severe Sepsis Bilateral pneumonia Acute kidney injury (SEN) with acute tubular necrosis (ATN) Alcohol dependence Elevated liver function tests - begin bowel regimen - Mag citrate 300 ml's po X 1 - increased FiO2 to 60% - continue to wean supplemental oxygen for target O2 sat's > 92% acutely - keep peep at 16 for now - continue care as below otherwise; - continue Daily SAT and SBT assessment as tolerated - VAP bundle addressed - continue lung protective strategies - continue bronchodilators with pulmonary hygiene per RT - wean per pulmonary driven protocols otherwise - accuchecks with glycemic control per SSI (While critically ill target blood glucose of 140-180 mg/dL; avoid hypoglycemia) - sedation prn for target RASS -1 to -2 - continue enteral nutritional support at goal rate as tolerated - continue airborne and contact isolation - follow repeat COVID-19 testing - continue Zinc & Vit C supplementaion - continue systemic steroids for Asthma / severe COVID infection - Prone positioning as tolerated - continue empiric full dose anticoagulation re: elevated d-dimers / hypercoagulable state - NOT a candidate for COVID convalescent plasma - continue systemic steroids X >/= 10 days - complete remdesivir dosing (total 5 days) - Monitor liver function test on Remdesivir - trend inflammatory markers - ferritin, Ddimer, CRP, LDH; to aid clinical decision making - empiric AB's coverage per ID rec's otherwise - accuchecks with glycemic control per SSI (While critically ill target blood glucose of 140-180 mg/dL; avoid hypoglycemia) - avoid nephrotoxins, renally dose all medications - continue to avoid benzodiazepine's, reduce the possibility of delirium - prn analgesia per CPOT score - Maintenance of sleep-wake cycle, avoid delirium - continue to avoid benzodiazepine's, reduce the possibility of delirium - aspiration precautions - G.I. & VTE prophylaxis - PT/OT/ROM exercises - continue mobility protocols for pressure ulcer prophylaxis - Monitor hemodynamics closely - continue other care per attending / other consultants - discharge planning ongoing concurrently .... Re-evaluate in am & prn CONDITION: CRITICAL PROGNOSIS: GUARDED CODE STATUS: FULL CODE The high probability of a clinically significant, sudden or life-threatening deterioration of the [respiratory, cardiovascular, hematologic & neurologic] system(s) required my full and direct attention, intervention and personal management. The aggregate critical care time was [32] minutes without overlap. Time includes spent on; [x] Data Review and interpretation [x] Patient assessment and monitoring of vital signs [x] Documentation [x] Medication orders and management Subjective Date of service: 05/28/20 Principal diagnosis: Ac hypoxemic resp failure; COVID-19; Severe Sepsis; Shaggy PNA; Alcohol Abuse Interval history: Patient is seen today for: Acute hypoxemic respiratory failure due to COVID-19; Severe Sepsis; Bilateral pneumonia; Alcohol dependence; Elevated liver function tests Seen and examined at bedside; 24hour events reviewed; nursing and respiratory care staff consulted; no adverse overnight events reported to me; resting in bed; remains on MVS; FiO2 at 50% but desaturating to mid 80's; also RN repoprts no BM's for about a week; No N/V/F/C Objective Vital Signs - 12hr 05/28/20 05/28/20 05/28/20 01:00 02:00 03:00 Temperature Pulse Rate 95 H 95 H 93 H Respiratory 15 20 14 Rate Blood Pressure 89/50 98/52 102/49 O2 Sat by Pulse 99 100 92 Oximetry 05/28/20 05/28/20 05/28/20 03:56 04:00 04:16 Temperature 99.1 F Pulse Rate 96 H 104 H Respiratory 17 Rate Blood Pressure 117/56 117/56 O2 Sat by Pulse 92 92 Oximetry 05/28/20 05/28/20 05/28/20 05:00 06:00 07:00 Temperature Pulse Rate 109 H 107 H 115 H Respiratory 12 13 13 Rate Blood Pressure 134/86 107/65 113/69 O2 Sat by Pulse 91 93 91 Oximetry 05/28/20 05/28/20 05/28/20 07:59 08:00 09:00 Temperature Pulse Rate 114 H 112 H 117 H Respiratory 11 L 13 Rate Blood Pressure 94/72 94/72 95/64 O2 Sat by Pulse 92 92 91 Oximetry 05/28/20 05/28/20 05/28/20 09:37 10:00 11:00 Temperature Pulse Rate 118 H 108 H 99 H Respiratory 12 10 L Rate Blood Pressure 95/64 93/61 86/52 O2 Sat by Pulse 93 93 Oximetry Constitutional: asleep, appears uncomfortable, other (middle aged obese male without significant ventilator dyssynchrony) Eyes: non-icteric ENT: oropharynx moist, other (ETT 24 cm CHILO) Neck: supple, no JVD Effort: normal, mildly labored Ascultation: Bilateral: diminished breath sounds, rhonchi Percussion: Bilateral: not dull Cardiovascular: regular rate and rhythm Gastrointestinal: hypoactive bowel sounds, soft, non-tender, non-distended (protuberant) Integumentary: normal Extremities: no cyanosis, no edema, pulses normal, no ischemia or petechiae Neurologic: non-focal exam, pupils equal and round, CN II-XII normal, motor strength normal and, other (sedated) Psychiatric: other (sedated) CBC and BMP: 05/26/20 07:51 05/26/20 07:51 ABG, PT/INR, D-dimer: ABG ABG pH 7.426 (7.320-7.450) 05/28/20 04:16 POC ABG pCO2 64.4 mmHg (32.0-48.0) H 05/28/20 04:16 ABG pCO2 70.8 mm Hg 05/26/20 04:50 POC ABG pO2 60.5 mmHg (83-108) L 05/28/20 04:16 ABG pO2 221.5 mm Hg (80.0-90.0) H 05/26/20 04:50 POC ABG HCO3 41.4 05/28/20 04:16 ABG O2 Saturation 99.3 % (95.0-99.0) H 05/26/20 04:50 PT/INR, D-dimer D-Dimer 1887.82 ng/mlDDU (0-234) H 05/20/20 08:16 Abnormal lab findings: Abnormal Labs 05/09/20 05/09/20 05/09/20 12:59 12:59 12:59 WBC 11.8 H RBC MCV 96 H MCH 34 H MCHC 35 H RDW Lymph % (Auto) 6.9 L Lymph # (Auto) 0.8 L Seg Neutrophils % 87.5 H Seg Neuts % (Manual) Lymphocytes % (Manual) Seg Neutrophils # 10.3 H Seg Neutrophils # Man Lymphocytes # (Manual) D-Dimer ABG pH POC ABG pCO2 POC ABG pO2 ABG pO2 ABG HCO3 ABG O2 Saturation ABG Base Excess ABG Hemoglobin ABG Oxyhemoglobin ABG Sodium ABG Potassium ABG Chloride ABG Glucose Oxyhemoglobin Sodium 130 L Potassium 3.5 L Chloride 86.4 L Carbon Dioxide BUN 33 H Creatinine 2.3 H Glucose 156 H POC Glucose Lactic Acid Calcium Magnesium Ferritin Total Bilirubin 3.40 H Direct Bilirubin 1.7 H AST 385 H ALT 134 H Alkaline Phosphatase Lactate Dehydrogenase C-Reactive Protein Total Protein Albumin 3.0 L Triglycerides Arterial Blood Glucose Arterial Blood Ionized Calcium Urine WBC (Auto) Coronavirus (PCR) SARS-CoV-2 IgG Ab 05/09/20 05/09/20 05/09/20 12:59 12:59 12:59 WBC RBC MCV MCH MCHC RDW Lymph % (Auto) Lymph # (Auto) Seg Neutrophils % Seg Neuts % (Manual) Lymphocytes % (Manual) Seg Neutrophils # Seg Neutrophils # Man Lymphocytes # (Manual) D-Dimer 3242.51 H ABG pH POC ABG pCO2 POC ABG pO2 ABG pO2 ABG HCO3 ABG O2 Saturation ABG Base Excess ABG Hemoglobin ABG Oxyhemoglobin ABG Sodium ABG Potassium ABG Chloride ABG Glucose Oxyhemoglobin Sodium Potassium Chloride Carbon Dioxide BUN Creatinine Glucose 158 H POC Glucose Lactic Acid 3.50 H* Calcium Magnesium Ferritin Total Bilirubin Direct Bilirubin AST ALT Alkaline Phosphatase Lactate Dehydrogenase 2166 H C-Reactive Protein 39.00 H Total Protein Albumin Triglycerides Arterial Blood Glucose Arterial Blood Ionized Calcium Urine WBC (Auto) Coronavirus (PCR) SARS-CoV-2 IgG Ab 05/09/20 05/09/20 05/09/20 12:59 14:20 14:20 WBC RBC MCV MCH MCHC RDW Lymph % (Auto) Lymph # (Auto) Seg Neutrophils % Seg Neuts % (Manual) Lymphocytes % (Manual) Seg Neutrophils # Seg Neutrophils # Man Lymphocytes # (Manual) D-Dimer 2861.78 H ABG pH POC ABG pCO2 POC ABG pO2 ABG pO2 ABG HCO3 ABG O2 Saturation ABG Base Excess ABG Hemoglobin ABG Oxyhemoglobin ABG Sodium ABG Potassium ABG Chloride ABG Glucose Oxyhemoglobin Sodium Potassium Chloride Carbon Dioxide BUN Creatinine Glucose POC Glucose Lactic Acid 2.20 H* Calcium Magnesium Ferritin 24294.0 H Total Bilirubin Direct Bilirubin AST ALT Alkaline Phosphatase Lactate Dehydrogenase C-Reactive Protein Total Protein Albumin Triglycerides Arterial Blood Glucose Arterial Blood Ionized Calcium Urine WBC (Auto) Coronavirus (PCR) SARS-CoV-2 IgG Ab 05/09/20 05/09/20 05/09/20 14:20 14:20 15:56 WBC RBC MCV MCH MCHC RDW Lymph % (Auto) Lymph # (Auto) Seg Neutrophils % Seg Neuts % (Manual) Lymphocytes % (Manual) Seg Neutrophils # Seg Neutrophils # Man Lymphocytes # (Manual) D-Dimer ABG pH POC ABG pCO2 POC ABG pO2 57.3 L ABG pO2 ABG HCO3 ABG O2 Saturation ABG Base Excess ABG Hemoglobin ABG Oxyhemoglobin 86.3 L ABG Sodium 129.9 L ABG Potassium ABG Chloride ABG Glucose 146 H Oxyhemoglobin Sodium Potassium Chloride Carbon Dioxide BUN Creatinine Glucose 143 H POC Glucose Lactic Acid Calcium Magnesium Ferritin 00209.0 H Total Bilirubin Direct Bilirubin AST ALT Alkaline Phosphatase Lactate Dehydrogenase 1953 H C-Reactive Protein 33.50 H Total Protein Albumin Triglycerides Arterial Blood Glucose 146 H Arterial Blood Ionized Calcium 3.9 L Urine WBC (Auto) Coronavirus (PCR) SARS-CoV-2 IgG Ab 05/10/20 05/10/20 05/10/20 10:32 10:32 18:50 WBC 15.4 H RBC MCV 97 H MCH 33 H MCHC RDW 13.1 L Lymph % (Auto) Lymph # (Auto) Seg Neutrophils % Seg Neuts % (Manual) 89.0 H Lymphocytes % (Manual) 8.0 L Seg Neutrophils # Seg Neutrophils # Man 13.7 H Lymphocytes # (Manual) D-Dimer ABG pH POC ABG pCO2 POC ABG pO2 ABG pO2 ABG HCO3 ABG O2 Saturation ABG Base Excess ABG Hemoglobin ABG Oxyhemoglobin ABG Sodium ABG Potassium ABG Chloride ABG Glucose Oxyhemoglobin Sodium 136 L Potassium Chloride 97.4 L Carbon Dioxide BUN 37 H Creatinine 1.7 H Glucose 209 H POC Glucose Lactic Acid Calcium Magnesium Ferritin > 2000.0 H Total Bilirubin Direct Bilirubin AST ALT Alkaline Phosphatase Lactate Dehydrogenase C-Reactive Protein Total Protein Albumin Triglycerides Arterial Blood Glucose Arterial Blood Ionized Calcium Urine WBC (Auto) Coronavirus (PCR) SARS-CoV-2 IgG Ab 05/10/20 05/10/20 05/10/20 18:50 19:00 Unknown WBC RBC MCV MCH MCHC RDW Lymph % (Auto) Lymph # (Auto) Seg Neutrophils % Seg Neuts % (Manual) Lymphocytes % (Manual) Seg Neutrophils # Seg Neutrophils # Man Lymphocytes # (Manual) D-Dimer > 86043 H ABG pH POC ABG pCO2 POC ABG pO2 ABG pO2 ABG HCO3 ABG O2 Saturation ABG Base Excess ABG Hemoglobin ABG Oxyhemoglobin ABG Sodium ABG Potassium ABG Chloride ABG Glucose Oxyhemoglobin Sodium Potassium Chloride Carbon Dioxide BUN Creatinine Glucose POC Glucose Lactic Acid Calcium Magnesium Ferritin Total Bilirubin Direct Bilirubin AST ALT Alkaline Phosphatase Lactate Dehydrogenase 1879 H C-Reactive Protein 24.80 H Total Protein Albumin Triglycerides Arterial Blood Glucose Arterial Blood Ionized Calcium Urine WBC (Auto) 11.0 H Coronavirus (PCR) SARS-CoV-2 IgG Ab 05/10/20 05/11/20 05/11/20 Unknown 07:30 07:30 WBC RBC MCV MCH MCHC RDW Lymph % (Auto) Lymph # (Auto) Seg Neutrophils % Seg Neuts % (Manual) Lymphocytes % (Manual) Seg Neutrophils # Seg Neutrophils # Man Lymphocytes # (Manual) D-Dimer > 2000 H ABG pH POC ABG pCO2 POC ABG pO2 ABG pO2 ABG HCO3 ABG O2 Saturation ABG Base Excess ABG Hemoglobin ABG Oxyhemoglobin ABG Sodium ABG Potassium ABG Chloride ABG Glucose Oxyhemoglobin Sodium Potassium Chloride 96.3 L Carbon Dioxide BUN 36 H Creatinine Glucose 161 H POC Glucose Lactic Acid Calcium 8.3 L Magnesium Ferritin Total Bilirubin 1.50 H Direct Bilirubin 0.6 H AST 178 H ALT 111 H Alkaline Phosphatase Lactate Dehydrogenase C-Reactive Protein Total Protein Albumin 3.0 L Triglycerides Arterial Blood Glucose Arterial Blood Ionized Calcium Urine WBC (Auto) Coronavirus (PCR) Positive A SARS-CoV-2 IgG Ab 05/11/20 05/11/20 05/11/20 07:30 07:30 07:30 WBC RBC MCV MCH MCHC RDW Lymph % (Auto) Lymph # (Auto) Seg Neutrophils % Seg Neuts % (Manual) Lymphocytes % (Manual) Seg Neutrophils # Seg Neutrophils # Man Lymphocytes # (Manual) D-Dimer ABG pH POC ABG pCO2 POC ABG pO2 ABG pO2 ABG HCO3 ABG O2 Saturation ABG Base Excess ABG Hemoglobin ABG Oxyhemoglobin ABG Sodium ABG Potassium ABG Chloride ABG Glucose Oxyhemoglobin Sodium Potassium Chloride Carbon Dioxide BUN Creatinine Glucose POC Glucose Lactic Acid Calcium Magnesium Ferritin 81462.0 H Total Bilirubin Direct Bilirubin AST ALT Alkaline Phosphatase Lactate Dehydrogenase 1523 H C-Reactive Protein 12.90 H Total Protein Albumin Triglycerides Arterial Blood Glucose Arterial Blood Ionized Calcium Urine WBC (Auto) Coronavirus (PCR) SARS-CoV-2 IgG Ab Reactive A 05/13/20 05/13/20 05/15/20 05:20 05:20 08:15 WBC RBC MCV MCH MCHC RDW Lymph % (Auto) Lymph # (Auto) Seg Neutrophils % Seg Neuts % (Manual) Lymphocytes % (Manual) Seg Neutrophils # Seg Neutrophils # Man Lymphocytes # (Manual) D-Dimer > 34765 H 5318.28 H ABG pH POC ABG pCO2 POC ABG pO2 ABG pO2 ABG HCO3 ABG O2 Saturation ABG Base Excess ABG Hemoglobin ABG Oxyhemoglobin ABG Sodium ABG Potassium ABG Chloride ABG Glucose Oxyhemoglobin Sodium Potassium Chloride Carbon Dioxide 32 H BUN 30 H Creatinine Glucose 156 H POC Glucose Lactic Acid Calcium Magnesium 2.60 H Ferritin Total Bilirubin 1.40 H Direct Bilirubin AST 121 H ALT 119 H Alkaline Phosphatase Lactate Dehydrogenase 957 H C-Reactive Protein 4.00 H Total Protein Albumin 3.0 L Triglycerides Arterial Blood Glucose Arterial Blood Ionized Calcium Urine WBC (Auto) Coronavirus (PCR) SARS-CoV-2 IgG Ab 05/15/20 05/15/20 05/15/20 08:15 08:15 08:15 WBC 12.4 H RBC MCV 98 H MCH 33 H MCHC RDW Lymph % (Auto) 9.7 L Lymph # (Auto) Seg Neutrophils % 86.8 H Seg Neuts % (Manual) Lymphocytes % (Manual) Seg Neutrophils # 10.8 H Seg Neutrophils # Man Lymphocytes # (Manual) D-Dimer ABG pH POC ABG pCO2 POC ABG pO2 ABG pO2 ABG HCO3 ABG O2 Saturation ABG Base Excess ABG Hemoglobin ABG Oxyhemoglobin ABG Sodium ABG Potassium ABG Chloride ABG Glucose Oxyhemoglobin Sodium Potassium Chloride 94.8 L Carbon Dioxide 32 H BUN 22 H Creatinine Glucose 115 H POC Glucose Lactic Acid Calcium 8.3 L Magnesium Ferritin 2494.0 H Total Bilirubin Direct Bilirubin AST 73 H ALT 121 H Alkaline Phosphatase Lactate Dehydrogenase 835 H C-Reactive Protein 3.40 H Total Protein 6.1 L Albumin 3.0 L Triglycerides Arterial Blood Glucose Arterial Blood Ionized Calcium Urine WBC (Auto) Coronavirus (PCR) SARS-CoV-2 IgG Ab 05/17/20 05/17/20 05/17/20 05:50 05:50 05:50 WBC RBC MCV MCH MCHC RDW Lymph % (Auto) Lymph # (Auto) Seg Neutrophils % Seg Neuts % (Manual) Lymphocytes % (Manual) Seg Neutrophils # Seg Neutrophils # Man Lymphocytes # (Manual) D-Dimer 2911.42 H ABG pH POC ABG pCO2 POC ABG pO2 ABG pO2 ABG HCO3 ABG O2 Saturation ABG Base Excess ABG Hemoglobin ABG Oxyhemoglobin ABG Sodium ABG Potassium ABG Chloride ABG Glucose Oxyhemoglobin Sodium 136 L Potassium Chloride 96.0 L Carbon Dioxide 34 H BUN 22 H Creatinine Glucose 140 H POC Glucose Lactic Acid Calcium Magnesium Ferritin 2082.0 H Total Bilirubin Direct Bilirubin AST ALT 75 H Alkaline Phosphatase Lactate Dehydrogenase 601 H C-Reactive Protein 2.70 H Total Protein Albumin 2.9 L Triglycerides Arterial Blood Glucose Arterial Blood Ionized Calcium Urine WBC (Auto) Coronavirus (PCR) SARS-CoV-2 IgG Ab 05/17/20 05/18/20 05/20/20 05:50 12:22 08:16 WBC RBC MCV 98 H MCH 33 H MCHC RDW Lymph % (Auto) 8.0 L Lymph # (Auto) 0.8 L Seg Neutrophils % 89.3 H Seg Neuts % (Manual) Lymphocytes % (Manual) Seg Neutrophils # 8.8 H Seg Neutrophils # Man Lymphocytes # (Manual) D-Dimer 1887.82 H ABG pH POC ABG pCO2 POC ABG pO2 ABG pO2 ABG HCO3 ABG O2 Saturation ABG Base Excess ABG Hemoglobin ABG Oxyhemoglobin ABG Sodium ABG Potassium ABG Chloride ABG Glucose Oxyhemoglobin Sodium Potassium Chloride Carbon Dioxide BUN Creatinine Glucose POC Glucose 178 H Lactic Acid Calcium Magnesium Ferritin Total Bilirubin Direct Bilirubin AST ALT Alkaline Phosphatase Lactate Dehydrogenase C-Reactive Protein Total Protein Albumin Triglycerides Arterial Blood Glucose Arterial Blood Ionized Calcium Urine WBC (Auto) Coronavirus (PCR) SARS-CoV-2 IgG Ab 05/20/20 05/20/20 05/21/20 08:16 08:16 21:10 WBC RBC MCV MCH MCHC RDW Lymph % (Auto) Lymph # (Auto) Seg Neutrophils % Seg Neuts % (Manual) Lymphocytes % (Manual) Seg Neutrophils # Seg Neutrophils # Man Lymphocytes # (Manual) D-Dimer ABG pH 7.483 H POC ABG pCO2 POC ABG pO2 ABG pO2 50.0 L ABG HCO3 27.0 H ABG O2 Saturation 86.2 L ABG Base Excess 3.7 H ABG Hemoglobin ABG Oxyhemoglobin ABG Sodium ABG Potassium ABG Chloride ABG Glucose Oxyhemoglobin 84.2 L Sodium Potassium Chloride Carbon Dioxide BUN Creatinine Glucose POC Glucose Lactic Acid Calcium Magnesium Ferritin 1960.0 H Total Bilirubin Direct Bilirubin AST ALT Alkaline Phosphatase Lactate Dehydrogenase 705 H C-Reactive Protein 3.10 H Total Protein Albumin Triglycerides Arterial Blood Glucose Arterial Blood Ionized Calcium Urine WBC (Auto) Coronavirus (PCR) SARS-CoV-2 IgG Ab 05/22/20 05/22/20 05/22/20 04:01 07:53 07:53 WBC 19.2 H RBC MCV 98 H MCH 34 H MCHC RDW Lymph % (Auto) Lymph # (Auto) Seg Neutrophils % Seg Neuts % (Manual) 96.0 H Lymphocytes % (Manual) 1.0 L Seg Neutrophils # Seg Neutrophils # Man 18.4 H Lymphocytes # (Manual) 0.2 L D-Dimer ABG pH POC ABG pCO2 53.8 H POC ABG pO2 125.5 H ABG pO2 ABG HCO3 ABG O2 Saturation ABG Base Excess ABG Hemoglobin ABG Oxyhemoglobin ABG Sodium 131.8 L ABG Potassium 4.8 H ABG Chloride 94.0 L ABG Glucose 163 H Oxyhemoglobin Sodium 131 L Potassium Chloride 93.4 L Carbon Dioxide BUN 40 H Creatinine Glucose 176 H POC Glucose Lactic Acid Calcium Magnesium 2.70 H Ferritin Total Bilirubin 1.80 H Direct Bilirubin AST 45 H ALT 116 H Alkaline Phosphatase 181 H Lactate Dehydrogenase C-Reactive Protein Total Protein Albumin 2.6 L Triglycerides Arterial Blood Glucose 163 H Arterial Blood Ionized Calcium 4.5 L Urine WBC (Auto) Coronavirus (PCR) SARS-CoV-2 IgG Ab 05/23/20 05/24/20 05/24/20 04:17 03:07 04:08 WBC RBC MCV MCH MCHC RDW Lymph % (Auto) Lymph # (Auto) Seg Neutrophils % Seg Neuts % (Manual) Lymphocytes % (Manual) Seg Neutrophils # Seg Neutrophils # Man Lymphocytes # (Manual) D-Dimer ABG pH 7.328 L POC ABG pCO2 POC ABG pO2 ABG pO2 72.8 L 73.4 L ABG HCO3 31.0 H 34.0 H ABG O2 Saturation 93.5 L ABG Base Excess 3.5 H 7.7 H ABG Hemoglobin 13.3 L 12.1 L ABG Oxyhemoglobin ABG Sodium ABG Potassium ABG Chloride ABG Glucose Oxyhemoglobin 91.5 L 94.3 L Sodium Potassium Chloride Carbon Dioxide BUN Creatinine Glucose POC Glucose 155 H Lactic Acid Calcium Magnesium Ferritin Total Bilirubin Direct Bilirubin AST ALT Alkaline Phosphatase Lactate Dehydrogenase C-Reactive Protein Total Protein Albumin Triglycerides Arterial Blood Glucose Arterial Blood Ionized Calcium Urine WBC (Auto) Coronavirus (PCR) SARS-CoV-2 IgG Ab 05/24/20 05/24/20 05/24/20 09:33 12:21 17:52 WBC RBC MCV MCH MCHC RDW Lymph % (Auto) Lymph # (Auto) Seg Neutrophils % Seg Neuts % (Manual) Lymphocytes % (Manual) Seg Neutrophils # Seg Neutrophils # Man Lymphocytes # (Manual) D-Dimer ABG pH POC ABG pCO2 POC ABG pO2 ABG pO2 ABG HCO3 ABG O2 Saturation ABG Base Excess ABG Hemoglobin ABG Oxyhemoglobin ABG Sodium ABG Potassium ABG Chloride ABG Glucose Oxyhemoglobin Sodium Potassium Chloride Carbon Dioxide 34 H D BUN 28 H Creatinine 0.7 L Glucose 168 H POC Glucose 173 H 164 H Lactic Acid Calcium Magnesium Ferritin Total Bilirubin Direct Bilirubin AST ALT Alkaline Phosphatase Lactate Dehydrogenase C-Reactive Protein Total Protein Albumin Triglycerides Arterial Blood Glucose Arterial Blood Ionized Calcium Urine WBC (Auto) Coronavirus (PCR) SARS-CoV-2 IgG Ab 05/24/20 05/25/20 05/25/20 23:47 04:29 05:46 WBC RBC MCV MCH MCHC RDW Lymph % (Auto) Lymph # (Auto) Seg Neutrophils % Seg Neuts % (Manual) Lymphocytes % (Manual) Seg Neutrophils # Seg Neutrophils # Man Lymphocytes # (Manual) D-Dimer ABG pH POC ABG pCO2 68.6 H POC ABG pO2 ABG pO2 ABG HCO3 ABG O2 Saturation ABG Base Excess ABG Hemoglobin ABG Oxyhemoglobin ABG Sodium ABG Potassium 4.7 H ABG Chloride ABG Glucose 226 H Oxyhemoglobin Sodium Potassium Chloride Carbon Dioxide BUN Creatinine Glucose POC Glucose 171 H 201 H Lactic Acid Calcium Magnesium Ferritin Total Bilirubin Direct Bilirubin AST ALT Alkaline Phosphatase Lactate Dehydrogenase C-Reactive Protein Total Protein Albumin Triglycerides Arterial Blood Glucose 226 H Arterial Blood Ionized Calcium Urine WBC (Auto) Coronavirus (PCR) SARS-CoV-2 IgG Ab 05/25/20 05/25/20 05/25/20 08:37 08:37 12:38 WBC 12.0 H RBC 3.64 L MCV 99 H MCH 33 H MCHC RDW Lymph % (Auto) Lymph # (Auto) Seg Neutrophils % Seg Neuts % (Manual) Lymphocytes % (Manual) Seg Neutrophils # Seg Neutrophils # Man Lymphocytes # (Manual) D-Dimer ABG pH POC ABG pCO2 POC ABG pO2 ABG pO2 ABG HCO3 ABG O2 Saturation ABG Base Excess ABG Hemoglobin ABG Oxyhemoglobin ABG Sodium ABG Potassium ABG Chloride ABG Glucose Oxyhemoglobin Sodium Potassium Chloride 97.3 L Carbon Dioxide 35 H BUN 25 H Creatinine 0.7 L Glucose 191 H POC Glucose 182 H Lactic Acid Calcium Magnesium Ferritin Total Bilirubin Direct Bilirubin AST ALT Alkaline Phosphatase Lactate Dehydrogenase C-Reactive Protein Total Protein Albumin Triglycerides Arterial Blood Glucose Arterial Blood Ionized Calcium Urine WBC (Auto) Coronavirus (PCR) SARS-CoV-2 IgG Ab 05/25/20 05/26/20 05/26/20 18:16 00:06 04:50 WBC RBC MCV MCH MCHC RDW Lymph % (Auto) Lymph # (Auto) Seg Neutrophils % Seg Neuts % (Manual) Lymphocytes % (Manual) Seg Neutrophils # Seg Neutrophils # Man Lymphocytes # (Manual) D-Dimer ABG pH POC ABG pCO2 POC ABG pO2 ABG pO2 221.5 H ABG HCO3 40.4 H ABG O2 Saturation 99.3 H ABG Base Excess 12.8 H ABG Hemoglobin 10.4 L ABG Oxyhemoglobin ABG Sodium ABG Potassium ABG Chloride ABG Glucose Oxyhemoglobin Sodium Potassium Chloride Carbon Dioxide BUN Creatinine Glucose POC Glucose 176 H 152 H Lactic Acid Calcium Magnesium Ferritin Total Bilirubin Direct Bilirubin AST ALT Alkaline Phosphatase Lactate Dehydrogenase C-Reactive Protein Total Protein Albumin Triglycerides Arterial Blood Glucose Arterial Blood Ionized Calcium Urine WBC (Auto) Coronavirus (PCR) SARS-CoV-2 IgG Ab 05/26/20 05/26/20 05/26/20 06:11 07:51 07:51 WBC 13.4 H RBC 3.64 L MCV 98 H MCH 33 H MCHC RDW Lymph % (Auto) Lymph # (Auto) Seg Neutrophils % Seg Neuts % (Manual) Lymphocytes % (Manual) Seg Neutrophils # Seg Neutrophils # Man Lymphocytes # (Manual) D-Dimer ABG pH POC ABG pCO2 POC ABG pO2 ABG pO2 ABG HCO3 ABG O2 Saturation ABG Base Excess ABG Hemoglobin ABG Oxyhemoglobin ABG Sodium ABG Potassium ABG Chloride ABG Glucose Oxyhemoglobin Sodium Potassium Chloride 96.6 L Carbon Dioxide 39 H BUN 29 H Creatinine 0.7 L Glucose 174 H POC Glucose 165 H Lactic Acid Calcium Magnesium Ferritin Total Bilirubin Direct Bilirubin AST ALT Alkaline Phosphatase Lactate Dehydrogenase C-Reactive Protein Total Protein Albumin Triglycerides Arterial Blood Glucose Arterial Blood Ionized Calcium Urine WBC (Auto) Coronavirus (PCR) SARS-CoV-2 IgG Ab 05/26/20 05/27/20 05/27/20 23:23 03:43 05:29 WBC RBC MCV MCH MCHC RDW Lymph % (Auto) Lymph # (Auto) Seg Neutrophils % Seg Neuts % (Manual) Lymphocytes % (Manual) Seg Neutrophils # Seg Neutrophils # Man Lymphocytes # (Manual) D-Dimer ABG pH 7.480 H POC ABG pCO2 52.4 H POC ABG pO2 61.4 L ABG pO2 ABG HCO3 ABG O2 Saturation ABG Base Excess ABG Hemoglobin ABG Oxyhemoglobin ABG Sodium 134.9 L ABG Potassium ABG Chloride 95.0 L ABG Glucose 221 H Oxyhemoglobin Sodium Potassium Chloride Carbon Dioxide BUN Creatinine Glucose POC Glucose 169 H 227 H Lactic Acid Calcium Magnesium Ferritin Total Bilirubin Direct Bilirubin AST ALT Alkaline Phosphatase Lactate Dehydrogenase C-Reactive Protein Total Protein Albumin Triglycerides Arterial Blood Glucose 221 H Arterial Blood Ionized Calcium 4.5 L Urine WBC (Auto) Coronavirus (PCR) SARS-CoV-2 IgG Ab 05/27/20 05/27/20 05/27/20 07:19 12:18 13:50 WBC RBC MCV MCH MCHC RDW Lymph % (Auto) Lymph # (Auto) Seg Neutrophils % Seg Neuts % (Manual) Lymphocytes % (Manual) Seg Neutrophils # Seg Neutrophils # Man Lymphocytes # (Manual) D-Dimer ABG pH POC ABG pCO2 POC ABG pO2 ABG pO2 ABG HCO3 ABG O2 Saturation ABG Base Excess ABG Hemoglobin ABG Oxyhemoglobin ABG Sodium ABG Potassium ABG Chloride ABG Glucose Oxyhemoglobin Sodium Potassium Chloride Carbon Dioxide BUN Creatinine Glucose POC Glucose 114 H 148 H Lactic Acid Calcium Magnesium Ferritin Total Bilirubin Direct Bilirubin AST ALT Alkaline Phosphatase Lactate Dehydrogenase C-Reactive Protein Total Protein Albumin Triglycerides 247 H Arterial Blood Glucose Arterial Blood Ionized Calcium Urine WBC (Auto) Coronavirus (PCR) SARS-CoV-2 IgG Ab 05/28/20 05/28/20 05/28/20 00:13 04:16 05:22 WBC RBC MCV MCH MCHC RDW Lymph % (Auto) Lymph # (Auto) Seg Neutrophils % Seg Neuts % (Manual) Lymphocytes % (Manual) Seg Neutrophils # Seg Neutrophils # Man Lymphocytes # (Manual) D-Dimer ABG pH POC ABG pCO2 64.4 H POC ABG pO2 60.5 L ABG pO2 ABG HCO3 ABG O2 Saturation ABG Base Excess ABG Hemoglobin ABG Oxyhemoglobin ABG Sodium ABG Potassium ABG Chloride 95.0 L ABG Glucose 209 H Oxyhemoglobin Sodium Potassium Chloride Carbon Dioxide BUN Creatinine Glucose POC Glucose 155 H 186 H Lactic Acid Calcium Magnesium Ferritin Total Bilirubin Direct Bilirubin AST ALT Alkaline Phosphatase Lactate Dehydrogenase C-Reactive Protein Total Protein Albumin Triglycerides Arterial Blood Glucose 209 H Arterial Blood Ionized Calcium Urine WBC (Auto) Coronavirus (PCR) SARS-CoV-2 IgG Ab Chest x-ray: image reviewed (stable shaggy;ateral infiltrates) Allied health notes reviewed: nursing
[2020-05-28] MEDS ORDERED: MAGNESIUM CITRATE 300 ML ORAL LIQD PO ONE (13:24)
[2020-05-28] MEDS: METOCLOPRAMIDE 10 MG/2 ML INJ IV SCH ×2 (14:57→21:32)
[2020-05-28] MEDS: DOCUSATE SODIUM 100 MG/10 ML ORAL LIQD PO SCH ×2 (15:32→21:27)
--- NOTE | 2020-05-28 15:43 | XRay Report ---
ABDOMEN 1 VIEW 05/28/2020 1:20 PM INDICATION / CLINICAL INFORMATION: constipation. COMPARISON: 05/22/20 FINDINGS: TUBES / LINES: Esophagogastric tube is present with the tip located in the proximal jejunum. BOWEL GAS PATTERN: No significant abnormality. FREE AIR / EXTRALUMINAL GAS: None. ADDITIONAL FINDINGS: No significant additional findings. IMPRESSION: 1. Esophagogastric tube in the proximal jejunum. Signer Name: Kevin Martinez MD Signed: 05/28/2020 3:39 PM Workstation Name: [employer]
[2020-05-28] MEDS: guaiFENesin DM 200/20 MG ORAL LIQD 10 ML PO PRN (18:17)
[2020-05-28] MEDS: POLYETHYLENE GLYCOL 3350 17 GM POWDER PO SCH (21:30)
--- NOTE | 2020-05-28 21:54 | Progress Note ---
Assessment and Plan Assessment and Plan Patient intubated last night because of persistent hypoxia --Elevated D-dimers; on full dose anticoagulation However ID requested to get CTA chest, patient is unstable to go for CT As he is requiring high flow oxygen. -- Acute hypoxemic respiratory failure; Patient intubated and on vent support --Elevated D-dimers; check CTA to rule out PE Lower extremity venous Doppler to rule out DVT Patient is already on full dose anticoagulation per COVID-19 protocol -- Novel coronavirus infection with Bilateral pneumonia Coronavirus protocol: IV steroid therapy, IV remdesivir, isolation precautions, contact precautions, prone positioning while in bed, pulmonary toilet. consulted ID --Severe sepsis, due to COVID 19 PNA cont to treat for COVID -- Acute kidney injury (SEN) , likely vasomotor nephropathy Resolved, IV fluids, avoid nephrotoxins -- Alcohol dependence; no episodes of withdrawal symptoms Thiamine, folic acid, multivitamin, CIWA protocol. -- Elevated liver function tests Suspected secondary to alcoholic liver disease. Supportive care, alcohol cessation, patient counseled. -- DVT prophylaxis prophylactic AC with lovenox for elevated D-dimer We will closely monitor patient and adjust management as needed Patient has severe Covid pneumonia, severe hypoxia Critically ill very poor prognosis Full CODE STATUS The high probability of a clinically significant, sudden or life threatening deterioration of the [Covid pneumonia, ID, respiratory, liver] system(s) required my full and direct attention, intervention and personal management. The aggregate critical care time was [32] minutes. This time is in addition to time spent performing reported procedures but includes the following: [x] Data Review and interpretation [x] Patient assessment and monitoring of vital signs [x] Documentation [x] Medication orders and management. Subjective Date of service: 05/28/20 Principal diagnosis: Ac hypoxemic resp failure; COVID-19; Severe Sepsis; Shaggy PNA; Alcohol Abuse Interval history: Brief history; 50 YO Male with Obesity, ETOH Dependence presents to ED for evaluation for shortness of breath, generalized weakness, fatigue, malaise, body aches, decreased exercise tolerance over the past 5 days. EMS was notified and upon arrival the patient was found to be in distress with a pulse oximetry of 76% on room air as well as fever to 103 F. In the ER chest x-ray and was found to have bilateral pneumonia. Patient admitted to medical floor and initiated on pneumonia protocol as well as COVID-19 protocol. Patient severe Covid pneumonia, with persistent severe hypoxemia requiring very high flow oxygen Today on continuous BiPAP, patient is in mild distress, critically ill with very poor prognosis. Patient was on high flow oxygen but could not be maintained above 90 hence patient intubated last night electively 05/17/2020; patient with severe COVID-19 pneumonia, in isolation room Patient is on high flow oxygen, and BiPAP 05/18/20; patient feels slightly better still hypoxic, requiring continuous high flow oxygen and BiPAP Respiratory team trying to wean 05/19/20; patient is severely hypoxemic requiring continuous BiPAP today, complains of generalized weakness Trying to wean off high flow oxygen, patient is in isolation 05/20/2020; patient remains on high flow oxygen/BiPAP/100% nonrebreather. Still is hypoxemic Has sinus tachycardia patient in mild distress Wean off high flow oxygen as tolerated, pulmonary critical following 05/21/20; patient is critically ill, on continuous BiPAP remains hypoxemic in mild distress Patient has severe Covid Pneumonia with persistent hypoxemia and poor prognosis 05/22/2020 Patient was intubated last night because of persistent hypoxemia Objective - Constitutional Vitals: Vital Signs - 12hr 05/28/20 05/28/20 05/28/20 10:00 11:00 12:00 Temperature 99.1 F Pulse Rate 108 H 99 H 93 H Pulse Rate [ 96 H From Monitor] Respiratory 12 10 L 11 L Rate Blood Pressure 93/61 86/52 94/52 O2 Sat by Pulse 93 93 93 Oximetry 05/28/20 05/28/20 05/28/20 13:00 13:07 14:01 Temperature Pulse Rate 112 H 85 126 H Pulse Rate [ From Monitor] Respiratory 15 15 Rate Blood Pressure 102/64 102/64 99/71 O2 Sat by Pulse 94 91 83 L Oximetry 05/28/20 05/28/20 05/28/20 15:00 16:00 16:29 Temperature 98.9 F Pulse Rate 112 H 121 H 130 H Pulse Rate [ 122 H From Monitor] Respiratory 14 20 Rate Blood Pressure 99/63 111/78 91/66 O2 Sat by Pulse 96 97 94 Oximetry 05/28/20 05/28/20 05/28/20 17:00 18:01 19:00 Temperature Pulse Rate 121 H 150 H 128 H Pulse Rate [ From Monitor] Respiratory 17 19 16 Rate Blood Pressure 91/67 130/76 93/60 O2 Sat by Pulse 98 98 Oximetry 05/28/20 05/28/20 05/28/20 19:50 20:00 20:19 Temperature 100.7 F H Pulse Rate 135 H 139 H Pulse Rate [ 136 H From Monitor] Respiratory 21 Rate Blood Pressure 132/80 132/80 O2 Sat by Pulse 96 95 Oximetry 05/28/20 05/28/20 21:00 21:28 Temperature Pulse Rate 137 H 131 H Pulse Rate [ From Monitor] Respiratory 20 Rate Blood Pressure 111/72 111/72 O2 Sat by Pulse 97 Oximetry General appearance: Present: no acute distress, well-nourished - EENT Eyes: PERRL, EOM intact ENT: hearing intact, clear oral mucosa Ears: bilateral: normal - Neck Neck: supple, normal ROM - Respiratory Respiratory effort: normal Respiratory: bilateral: CTA - Breasts Breasts: normal - Cardiovascular Rhythm: regular Heart Sounds: Present: S1 & S2. Absent: gallop, rub Extremities: pulses intact, No edema, normal color, Full ROM - Gastrointestinal General gastrointestinal: Present: soft, non-tender, non-distended, normal bowel sounds - Genitourinary Male genitourinary: normal - Integumentary Integumentary: clear, warm, dry - Musculoskeletal Musculoskeletal: 1, strength equal bilaterally - Neurologic Neurologic: moves all extremities - Psychiatric Psychiatric: memory intact, appropriate mood/affect, intact judgment & insight - Labs CBC & Chem 7: 05/26/20 07:51 05/26/20 07:51 Labs: Abnormal lab results 05/28/20 05/28/20 05/28/20 Range/Units 00:13 04:16 05:22 POC ABG pCO2 64.4 H (32.0-48.0) mmHg POC ABG pO2 60.5 L (83-108) mmHg ABG Chloride 95.0 L (98-107) mmol/L ABG Glucose 209 H (65-95) mg/dL POC Glucose 155 H 186 H (70-105) mg/dL Arterial Blood Glucose 209 H (65-95) mg/dL 05/28/20 05/28/20 Range/Units 12:45 17:39 POC ABG pCO2 (32.0-48.0) mmHg POC ABG pO2 (83-108) mmHg ABG Chloride (98-107) mmol/L ABG Glucose (65-95) mg/dL POC Glucose 143 H 164 H (70-105) mg/dL Arterial Blood Glucose (65-95) mg/dL
[2020-05-29] MEDS: fentaNYL DRIP Premix 2,000 MCG/100 ML BAG IV SCH ×4 (00:30→21:54)
[2020-05-29] MEDS: METOCLOPRAMIDE 10 MG/2 ML INJ IV SCH ×3 (05:53→22:00)
[2020-05-29] MEDS: methylPREDNISolone Sod Succinate 40 MG/1 ML INJ IV SCH ×2 (05:53→17:48)
[2020-05-29] MEDS: ENOXAPARIN 120 MG/0.8 ML INJ SUB-Q SCH ×2 (09:16→21:51)
[2020-05-29] MEDS: METOPROLOL TARTRATE 25 MG TAB PO SCH ×2 (09:16→21:52)
[2020-05-29] MEDS: FAMOTIDINE 20 MG TAB PO SCH ×2 (09:16→21:52)
[2020-05-29] MEDS: DOCUSATE SODIUM 100 MG/10 ML ORAL LIQD PO SCH (09:16)
[2020-05-29] MEDS: FOLIC ACID 1 MG TAB PO SCH (09:16)
--- NOTE | 2020-05-29 12:28 | Progress Note ---
Assessment and Plan Acute hypoxemic respiratory failure due to COVID-19 Severe COVID infection Severe Sepsis Bilateral pneumonia Acute kidney injury (SEN) with acute tubular necrosis (ATN)-improving h/o Alcohol dependence Elevated liver function tests probably secondary COVID - VAP bundle addressed, aspiration precautions HOB >40 -Wean supplemental oxygen for O2 sats>90% - Continue lung protective strategies, permissive hypercapnic acceptable. -Pa/FIO2 ratio acceptable at this time - continue bronchodilators with pulmonary hygiene per RT - wean per pulmonary driven protocols otherwise - accuchecks with glycemic control per SSI (While critically ill target blood glucose of 140-180 mg/dL; avoid hypoglycemia) - sedation prn for target RASS -1 to -2 - continue enteral nutritional support at goal rate as tolerated - Prone positioning as tolerated and indicated - Monitor liver function test , avoid hepatotoxic agents - Avoid nephrotoxins, renally dose all medications, conservative fluid management - continue to avoid benzodiazepines, reduce the possibility of delirium - prn analgesia per CPOT score - Maintenance of sleep-wake cycle, avoid delirium - continue to avoid benzodiazepines, reduce the possibility of delirium - aspiration precautions -Stress ulcer prophylaxis - PT/OT/ROM exercises - continue mobility protocols for pressure ulcer prevention -CXR, ABG as clinically indicated -CBC, BMP as clinically indicated -Supportive transfusions to keep HgB >7g/dL - Monitor hemodynamics closely - continue other care per attending / other consultants COVID SPECIFIC INTERVENTIONS - SARS CoV-2 IgG positive patient is NOT a candidate for COVID convalescent plasma -Completed remdesivir -continue steroids: on Solu-Medrol, wean -Monitor inflammatory markers - ferritin, Ddimer, CRP, LDH every 3 days -Continue anticoagulation per System Protocol based on d-dimer -Continue contact and airborne isolation .... Re-evaluate in am & prn CONDITION: CRITICAL PROGNOSIS: GUARDED CODE STATUS: FULL CODE The high probability of a clinically significant, sudden or life-threatening deterioration of the [respiratory, cardiovascular, hematologic & neurologic] system(s) required my full and direct attention, intervention and personal management. The aggregate critical care time was [32] minutes without overlap. Time includes spent on; [x] Data Review and interpretation [x] Patient assessment and monitoring of vital signs [x] Documentation [x] Medication orders and management Subjective Date of service: 05/29/20 Principal diagnosis: Ac hypoxemic resp failure; COVID-19; Severe Sepsis; Shaggy PNA; Alcohol Abuse Interval history: Patient is seen today for: Acute hypoxemic respiratory failure due to COVID-19; Severe Sepsis; Bilateral pneumonia; Alcohol dependence; Elevated liver function tests Seen and examined at bedside; 24hour events reviewed; nursing and respiratory care staff consulted; no adverse overnight events reported to me; resting in bed; remains on MVS; FiO2 at 45% PEEP +16 -ABG on 50%PEEP 16 7.46/56/81/39. Objective Vital Signs - 12hr 05/29/20 05/29/20 05/29/20 01:00 02:00 03:00 Temperature Pulse Rate 126 H 119 H 117 H Pulse Rate [ From Monitor] Respiratory 19 13 14 Rate Blood Pressure 109/66 97/59 95/58 O2 Sat by Pulse 100 100 100 Oximetry 05/29/20 05/29/20 05/29/20 03:01 04:00 04:10 Temperature 97.8 F Pulse Rate 109 H 106 H Pulse Rate [ 107 H From Monitor] Respiratory 15 Rate Blood Pressure 81/60 81/60 O2 Sat by Pulse 100 100 Oximetry 05/29/20 05/29/20 05/29/20 05:00 06:00 07:00 Temperature Pulse Rate 103 H 100 H 101 H Pulse Rate [ From Monitor] Respiratory Rate Blood Pressure 95/65 92/67 90/65 O2 Sat by Pulse 100 100 100 Oximetry 05/29/20 05/29/20 05/29/20 07:53 08:00 08:01 Temperature 98.9 F Pulse Rate 106 H 105 H Pulse Rate [ 105 H From Monitor] Respiratory 18 Rate Blood Pressure 102/66 133/80 O2 Sat by Pulse 96 95 95 Oximetry 05/29/20 05/29/20 05/29/20 09:01 09:16 10:00 Temperature Pulse Rate 115 H 108 H 102 H Pulse Rate [ From Monitor] Respiratory Rate Blood Pressure 142/84 142/84 104/67 O2 Sat by Pulse 90 100 Oximetry 05/29/20 05/29/20 05/29/20 11:00 12:00 12:02 Temperature Pulse Rate 103 H 100 H Pulse Rate [ 110 H From Monitor] Respiratory 20 Rate Blood Pressure 106/56 110/62 O2 Sat by Pulse 100 99 100 Oximetry 05/29/20 12:04 Temperature Pulse Rate 110 H Pulse Rate [ From Monitor] Respiratory Rate Blood Pressure O2 Sat by Pulse 99 Oximetry Constitutional: asleep, appears uncomfortable, other (middle aged obese male without significant ventilator dyssynchrony) Eyes: non-icteric ENT: oropharynx moist, other (ETT 24 cm CHILO) Neck: supple, no lymphadenopathy, no JVD Effort: mildly labored Ascultation: Bilateral: diminished breath sounds, rhonchi Percussion: Bilateral: not dull Cardiovascular: regular rate and rhythm, other (S1,S2) Gastrointestinal: hypoactive bowel sounds, soft, non-tender, non-distended (protuberant) Integumentary: normal Extremities: no cyanosis, no edema, pulses normal, no ischemia or petechiae Neurologic: non-focal exam, pupils equal and round, CN II-XII normal, motor strength normal and, other (sedated) Psychiatric: other (sedated) CBC and BMP: 05/30/20 09:30 05/26/20 07:51 ABG, PT/INR, D-dimer: ABG ABG pH 7.463 (7.320-7.450) H 05/29/20 04:15 POC ABG pCO2 56.3 mmHg (32.0-48.0) H 05/29/20 04:15 ABG pCO2 70.8 mm Hg 05/26/20 04:50 POC ABG pO2 81.2 mmHg (83-108) L 05/29/20 04:15 ABG pO2 221.5 mm Hg (80.0-90.0) H 05/26/20 04:50 POC ABG HCO3 39.4 05/29/20 04:15 ABG O2 Saturation 99.3 % (95.0-99.0) H 05/26/20 04:50 PT/INR, D-dimer D-Dimer 1887.82 ng/mlDDU (0-234) H 05/20/20 08:16 Abnormal lab findings: Abnormal Labs 05/09/20 05/09/20 05/09/20 12:59 12:59 12:59 WBC 11.8 H RBC MCV 96 H MCH 34 H MCHC 35 H RDW Lymph % (Auto) 6.9 L Lymph # (Auto) 0.8 L Seg Neutrophils % 87.5 H Seg Neuts % (Manual) Lymphocytes % (Manual) Seg Neutrophils # 10.3 H Seg Neutrophils # Man Lymphocytes # (Manual) D-Dimer ABG pH POC ABG pCO2 POC ABG pO2 ABG pO2 ABG HCO3 ABG O2 Saturation ABG Base Excess ABG Hemoglobin ABG Oxyhemoglobin ABG Sodium ABG Potassium ABG Chloride ABG Glucose Oxyhemoglobin Sodium 130 L Potassium 3.5 L Chloride 86.4 L Carbon Dioxide BUN 33 H Creatinine 2.3 H Glucose 156 H POC Glucose Lactic Acid Calcium Magnesium Ferritin Total Bilirubin 3.40 H Direct Bilirubin 1.7 H AST 385 H ALT 134 H Alkaline Phosphatase Lactate Dehydrogenase C-Reactive Protein Total Protein Albumin 3.0 L Triglycerides Arterial Blood Glucose Arterial Blood Ionized Calcium Urine WBC (Auto) Coronavirus (PCR) SARS-CoV-2 IgG Ab 05/09/20 05/09/20 05/09/20 12:59 12:59 12:59 WBC RBC MCV MCH MCHC RDW Lymph % (Auto) Lymph # (Auto) Seg Neutrophils % Seg Neuts % (Manual) Lymphocytes % (Manual) Seg Neutrophils # Seg Neutrophils # Man Lymphocytes # (Manual) D-Dimer 3242.51 H ABG pH POC ABG pCO2 POC ABG pO2 ABG pO2 ABG HCO3 ABG O2 Saturation ABG Base Excess ABG Hemoglobin ABG Oxyhemoglobin ABG Sodium ABG Potassium ABG Chloride ABG Glucose Oxyhemoglobin Sodium Potassium Chloride Carbon Dioxide BUN Creatinine Glucose 158 H POC Glucose Lactic Acid 3.50 H* Calcium Magnesium Ferritin Total Bilirubin Direct Bilirubin AST ALT Alkaline Phosphatase Lactate Dehydrogenase 2166 H C-Reactive Protein 39.00 H Total Protein Albumin Triglycerides Arterial Blood Glucose Arterial Blood Ionized Calcium Urine WBC (Auto) Coronavirus (PCR) SARS-CoV-2 IgG Ab 05/09/20 05/09/20 05/09/20 12:59 14:20 14:20 WBC RBC MCV MCH MCHC RDW Lymph % (Auto) Lymph # (Auto) Seg Neutrophils % Seg Neuts % (Manual) Lymphocytes % (Manual) Seg Neutrophils # Seg Neutrophils # Man Lymphocytes # (Manual) D-Dimer 2861.78 H ABG pH POC ABG pCO2 POC ABG pO2 ABG pO2 ABG HCO3 ABG O2 Saturation ABG Base Excess ABG Hemoglobin ABG Oxyhemoglobin ABG Sodium ABG Potassium ABG Chloride ABG Glucose Oxyhemoglobin Sodium Potassium Chloride Carbon Dioxide BUN Creatinine Glucose POC Glucose Lactic Acid 2.20 H* Calcium Magnesium Ferritin 52232.0 H Total Bilirubin Direct Bilirubin AST ALT Alkaline Phosphatase Lactate Dehydrogenase C-Reactive Protein Total Protein Albumin Triglycerides Arterial Blood Glucose Arterial Blood Ionized Calcium Urine WBC (Auto) Coronavirus (PCR) SARS-CoV-2 IgG Ab 05/09/20 05/09/20 05/09/20 14:20 14:20 15:56 WBC RBC MCV MCH MCHC RDW Lymph % (Auto) Lymph # (Auto) Seg Neutrophils % Seg Neuts % (Manual) Lymphocytes % (Manual) Seg Neutrophils # Seg Neutrophils # Man Lymphocytes # (Manual) D-Dimer ABG pH POC ABG pCO2 POC ABG pO2 57.3 L ABG pO2 ABG HCO3 ABG O2 Saturation ABG Base Excess ABG Hemoglobin ABG Oxyhemoglobin 86.3 L ABG Sodium 129.9 L ABG Potassium ABG Chloride ABG Glucose 146 H Oxyhemoglobin Sodium Potassium Chloride Carbon Dioxide BUN Creatinine Glucose 143 H POC Glucose Lactic Acid Calcium Magnesium Ferritin 93980.0 H Total Bilirubin Direct Bilirubin AST ALT Alkaline Phosphatase Lactate Dehydrogenase 1953 H C-Reactive Protein 33.50 H Total Protein Albumin Triglycerides Arterial Blood Glucose 146 H Arterial Blood Ionized Calcium 3.9 L Urine WBC (Auto) Coronavirus (PCR) SARS-CoV-2 IgG Ab 05/10/20 05/10/20 05/10/20 10:32 10:32 18:50 WBC 15.4 H RBC MCV 97 H MCH 33 H MCHC RDW 13.1 L Lymph % (Auto) Lymph # (Auto) Seg Neutrophils % Seg Neuts % (Manual) 89.0 H Lymphocytes % (Manual) 8.0 L Seg Neutrophils # Seg Neutrophils # Man 13.7 H Lymphocytes # (Manual) D-Dimer ABG pH POC ABG pCO2 POC ABG pO2 ABG pO2 ABG HCO3 ABG O2 Saturation ABG Base Excess ABG Hemoglobin ABG Oxyhemoglobin ABG Sodium ABG Potassium ABG Chloride ABG Glucose Oxyhemoglobin Sodium 136 L Potassium Chloride 97.4 L Carbon Dioxide BUN 37 H Creatinine 1.7 H Glucose 209 H POC Glucose Lactic Acid Calcium Magnesium Ferritin > 2000.0 H Total Bilirubin Direct Bilirubin AST ALT Alkaline Phosphatase Lactate Dehydrogenase C-Reactive Protein Total Protein Albumin Triglycerides Arterial Blood Glucose Arterial Blood Ionized Calcium Urine WBC (Auto) Coronavirus (PCR) SARS-CoV-2 IgG Ab 05/10/20 05/10/20 05/10/20 18:50 19:00 Unknown WBC RBC MCV MCH MCHC RDW Lymph % (Auto) Lymph # (Auto) Seg Neutrophils % Seg Neuts % (Manual) Lymphocytes % (Manual) Seg Neutrophils # Seg Neutrophils # Man Lymphocytes # (Manual) D-Dimer > 30127 H ABG pH POC ABG pCO2 POC ABG pO2 ABG pO2 ABG HCO3 ABG O2 Saturation ABG Base Excess ABG Hemoglobin ABG Oxyhemoglobin ABG Sodium ABG Potassium ABG Chloride ABG Glucose Oxyhemoglobin Sodium Potassium Chloride Carbon Dioxide BUN Creatinine Glucose POC Glucose Lactic Acid Calcium Magnesium Ferritin Total Bilirubin Direct Bilirubin AST ALT Alkaline Phosphatase Lactate Dehydrogenase 1879 H C-Reactive Protein 24.80 H Total Protein Albumin Triglycerides Arterial Blood Glucose Arterial Blood Ionized Calcium Urine WBC (Auto) 11.0 H Coronavirus (PCR) SARS-CoV-2 IgG Ab 05/10/20 05/11/20 05/11/20 Unknown 07:30 07:30 WBC RBC MCV MCH MCHC RDW Lymph % (Auto) Lymph # (Auto) Seg Neutrophils % Seg Neuts % (Manual) Lymphocytes % (Manual) Seg Neutrophils # Seg Neutrophils # Man Lymphocytes # (Manual) D-Dimer > 2000 H ABG pH POC ABG pCO2 POC ABG pO2 ABG pO2 ABG HCO3 ABG O2 Saturation ABG Base Excess ABG Hemoglobin ABG Oxyhemoglobin ABG Sodium ABG Potassium ABG Chloride ABG Glucose Oxyhemoglobin Sodium Potassium Chloride 96.3 L Carbon Dioxide BUN 36 H Creatinine Glucose 161 H POC Glucose Lactic Acid Calcium 8.3 L Magnesium Ferritin Total Bilirubin 1.50 H Direct Bilirubin 0.6 H AST 178 H ALT 111 H Alkaline Phosphatase Lactate Dehydrogenase C-Reactive Protein Total Protein Albumin 3.0 L Triglycerides Arterial Blood Glucose Arterial Blood Ionized Calcium Urine WBC (Auto) Coronavirus (PCR) Positive A SARS-CoV-2 IgG Ab 05/11/20 05/11/20 05/11/20 07:30 07:30 07:30 WBC RBC MCV MCH MCHC RDW Lymph % (Auto) Lymph # (Auto) Seg Neutrophils % Seg Neuts % (Manual) Lymphocytes % (Manual) Seg Neutrophils # Seg Neutrophils # Man Lymphocytes # (Manual) D-Dimer ABG pH POC ABG pCO2 POC ABG pO2 ABG pO2 ABG HCO3 ABG O2 Saturation ABG Base Excess ABG Hemoglobin ABG Oxyhemoglobin ABG Sodium ABG Potassium ABG Chloride ABG Glucose Oxyhemoglobin Sodium Potassium Chloride Carbon Dioxide BUN Creatinine Glucose POC Glucose Lactic Acid Calcium Magnesium Ferritin 35491.0 H Total Bilirubin Direct Bilirubin AST ALT Alkaline Phosphatase Lactate Dehydrogenase 1523 H C-Reactive Protein 12.90 H Total Protein Albumin Triglycerides Arterial Blood Glucose Arterial Blood Ionized Calcium Urine WBC (Auto) Coronavirus (PCR) SARS-CoV-2 IgG Ab Reactive A 05/13/20 05/13/20 05/15/20 05:20 05:20 08:15 WBC RBC MCV MCH MCHC RDW Lymph % (Auto) Lymph # (Auto) Seg Neutrophils % Seg Neuts % (Manual) Lymphocytes % (Manual) Seg Neutrophils # Seg Neutrophils # Man Lymphocytes # (Manual) D-Dimer > 25480 H 5318.28 H ABG pH POC ABG pCO2 POC ABG pO2 ABG pO2 ABG HCO3 ABG O2 Saturation ABG Base Excess ABG Hemoglobin ABG Oxyhemoglobin ABG Sodium ABG Potassium ABG Chloride ABG Glucose Oxyhemoglobin Sodium Potassium Chloride Carbon Dioxide 32 H BUN 30 H Creatinine Glucose 156 H POC Glucose Lactic Acid Calcium Magnesium 2.60 H Ferritin Total Bilirubin 1.40 H Direct Bilirubin AST 121 H ALT 119 H Alkaline Phosphatase Lactate Dehydrogenase 957 H C-Reactive Protein 4.00 H Total Protein Albumin 3.0 L Triglycerides Arterial Blood Glucose Arterial Blood Ionized Calcium Urine WBC (Auto) Coronavirus (PCR) SARS-CoV-2 IgG Ab 05/15/20 05/15/20 05/15/20 08:15 08:15 08:15 WBC 12.4 H RBC MCV 98 H MCH 33 H MCHC RDW Lymph % (Auto) 9.7 L Lymph # (Auto) Seg Neutrophils % 86.8 H Seg Neuts % (Manual) Lymphocytes % (Manual) Seg Neutrophils # 10.8 H Seg Neutrophils # Man Lymphocytes # (Manual) D-Dimer ABG pH POC ABG pCO2 POC ABG pO2 ABG pO2 ABG HCO3 ABG O2 Saturation ABG Base Excess ABG Hemoglobin ABG Oxyhemoglobin ABG Sodium ABG Potassium ABG Chloride ABG Glucose Oxyhemoglobin Sodium Potassium Chloride 94.8 L Carbon Dioxide 32 H BUN 22 H Creatinine Glucose 115 H POC Glucose Lactic Acid Calcium 8.3 L Magnesium Ferritin 2494.0 H Total Bilirubin Direct Bilirubin AST 73 H ALT 121 H Alkaline Phosphatase Lactate Dehydrogenase 835 H C-Reactive Protein 3.40 H Total Protein 6.1 L Albumin 3.0 L Triglycerides Arterial Blood Glucose Arterial Blood Ionized Calcium Urine WBC (Auto) Coronavirus (PCR) SARS-CoV-2 IgG Ab 05/17/20 05/17/20 05/17/20 05:50 05:50 05:50 WBC RBC MCV MCH MCHC RDW Lymph % (Auto) Lymph # (Auto) Seg Neutrophils % Seg Neuts % (Manual) Lymphocytes % (Manual) Seg Neutrophils # Seg Neutrophils # Man Lymphocytes # (Manual) D-Dimer 2911.42 H ABG pH POC ABG pCO2 POC ABG pO2 ABG pO2 ABG HCO3 ABG O2 Saturation ABG Base Excess ABG Hemoglobin ABG Oxyhemoglobin ABG Sodium ABG Potassium ABG Chloride ABG Glucose Oxyhemoglobin Sodium 136 L Potassium Chloride 96.0 L Carbon Dioxide 34 H BUN 22 H Creatinine Glucose 140 H POC Glucose Lactic Acid Calcium Magnesium Ferritin 2082.0 H Total Bilirubin Direct Bilirubin AST ALT 75 H Alkaline Phosphatase Lactate Dehydrogenase 601 H C-Reactive Protein 2.70 H Total Protein Albumin 2.9 L Triglycerides Arterial Blood Glucose Arterial Blood Ionized Calcium Urine WBC (Auto) Coronavirus (PCR) SARS-CoV-2 IgG Ab 05/17/20 05/18/20 05/20/20 05:50 12:22 08:16 WBC RBC MCV 98 H MCH 33 H MCHC RDW Lymph % (Auto) 8.0 L Lymph # (Auto) 0.8 L Seg Neutrophils % 89.3 H Seg Neuts % (Manual) Lymphocytes % (Manual) Seg Neutrophils # 8.8 H Seg Neutrophils # Man Lymphocytes # (Manual) D-Dimer 1887.82 H ABG pH POC ABG pCO2 POC ABG pO2 ABG pO2 ABG HCO3 ABG O2 Saturation ABG Base Excess ABG Hemoglobin ABG Oxyhemoglobin ABG Sodium ABG Potassium ABG Chloride ABG Glucose Oxyhemoglobin Sodium Potassium Chloride Carbon Dioxide BUN Creatinine Glucose POC Glucose 178 H Lactic Acid Calcium Magnesium Ferritin Total Bilirubin Direct Bilirubin AST ALT Alkaline Phosphatase Lactate Dehydrogenase C-Reactive Protein Total Protein Albumin Triglycerides Arterial Blood Glucose Arterial Blood Ionized Calcium Urine WBC (Auto) Coronavirus (PCR) SARS-CoV-2 IgG Ab 05/20/20 05/20/20 05/21/20 08:16 08:16 21:10 WBC RBC MCV MCH MCHC RDW Lymph % (Auto) Lymph # (Auto) Seg Neutrophils % Seg Neuts % (Manual) Lymphocytes % (Manual) Seg Neutrophils # Seg Neutrophils # Man Lymphocytes # (Manual) D-Dimer ABG pH 7.483 H POC ABG pCO2 POC ABG pO2 ABG pO2 50.0 L ABG HCO3 27.0 H ABG O2 Saturation 86.2 L ABG Base Excess 3.7 H ABG Hemoglobin ABG Oxyhemoglobin ABG Sodium ABG Potassium ABG Chloride ABG Glucose Oxyhemoglobin 84.2 L Sodium Potassium Chloride Carbon Dioxide BUN Creatinine Glucose POC Glucose Lactic Acid Calcium Magnesium Ferritin 1960.0 H Total Bilirubin Direct Bilirubin AST ALT Alkaline Phosphatase Lactate Dehydrogenase 705 H C-Reactive Protein 3.10 H Total Protein Albumin Triglycerides Arterial Blood Glucose Arterial Blood Ionized Calcium Urine WBC (Auto) Coronavirus (PCR) SARS-CoV-2 IgG Ab 05/22/20 05/22/20 05/22/20 04:01 07:53 07:53 WBC 19.2 H RBC MCV 98 H MCH 34 H MCHC RDW Lymph % (Auto) Lymph # (Auto) Seg Neutrophils % Seg Neuts % (Manual) 96.0 H Lymphocytes % (Manual) 1.0 L Seg Neutrophils # Seg Neutrophils # Man 18.4 H Lymphocytes # (Manual) 0.2 L D-Dimer ABG pH POC ABG pCO2 53.8 H POC ABG pO2 125.5 H ABG pO2 ABG HCO3 ABG O2 Saturation ABG Base Excess ABG Hemoglobin ABG Oxyhemoglobin ABG Sodium 131.8 L ABG Potassium 4.8 H ABG Chloride 94.0 L ABG Glucose 163 H Oxyhemoglobin Sodium 131 L Potassium Chloride 93.4 L Carbon Dioxide BUN 40 H Creatinine Glucose 176 H POC Glucose Lactic Acid Calcium Magnesium 2.70 H Ferritin Total Bilirubin 1.80 H Direct Bilirubin AST 45 H ALT 116 H Alkaline Phosphatase 181 H Lactate Dehydrogenase C-Reactive Protein Total Protein Albumin 2.6 L Triglycerides Arterial Blood Glucose 163 H Arterial Blood Ionized Calcium 4.5 L Urine WBC (Auto) Coronavirus (PCR) SARS-CoV-2 IgG Ab 05/23/20 05/24/20 05/24/20 04:17 03:07 04:08 WBC RBC MCV MCH MCHC RDW Lymph % (Auto) Lymph # (Auto) Seg Neutrophils % Seg Neuts % (Manual) Lymphocytes % (Manual) Seg Neutrophils # Seg Neutrophils # Man Lymphocytes # (Manual) D-Dimer ABG pH 7.328 L POC ABG pCO2 POC ABG pO2 ABG pO2 72.8 L 73.4 L ABG HCO3 31.0 H 34.0 H ABG O2 Saturation 93.5 L ABG Base Excess 3.5 H 7.7 H ABG Hemoglobin 13.3 L 12.1 L ABG Oxyhemoglobin ABG Sodium ABG Potassium ABG Chloride ABG Glucose Oxyhemoglobin 91.5 L 94.3 L Sodium Potassium Chloride Carbon Dioxide BUN Creatinine Glucose POC Glucose 155 H Lactic Acid Calcium Magnesium Ferritin Total Bilirubin Direct Bilirubin AST ALT Alkaline Phosphatase Lactate Dehydrogenase C-Reactive Protein Total Protein Albumin Triglycerides Arterial Blood Glucose Arterial Blood Ionized Calcium Urine WBC (Auto) Coronavirus (PCR) SARS-CoV-2 IgG Ab 05/24/20 05/24/20 05/24/20 09:33 12:21 17:52 WBC RBC MCV MCH MCHC RDW Lymph % (Auto) Lymph # (Auto) Seg Neutrophils % Seg Neuts % (Manual) Lymphocytes % (Manual) Seg Neutrophils # Seg Neutrophils # Man Lymphocytes # (Manual) D-Dimer ABG pH POC ABG pCO2 POC ABG pO2 ABG pO2 ABG HCO3 ABG O2 Saturation ABG Base Excess ABG Hemoglobin ABG Oxyhemoglobin ABG Sodium ABG Potassium ABG Chloride ABG Glucose Oxyhemoglobin Sodium Potassium Chloride Carbon Dioxide 34 H D BUN 28 H Creatinine 0.7 L Glucose 168 H POC Glucose 173 H 164 H Lactic Acid Calcium Magnesium Ferritin Total Bilirubin Direct Bilirubin AST ALT Alkaline Phosphatase Lactate Dehydrogenase C-Reactive Protein Total Protein Albumin Triglycerides Arterial Blood Glucose Arterial Blood Ionized Calcium Urine WBC (Auto) Coronavirus (PCR) SARS-CoV-2 IgG Ab 05/24/20 05/25/20 05/25/20 23:47 04:29 05:46 WBC RBC MCV MCH MCHC RDW Lymph % (Auto) Lymph # (Auto) Seg Neutrophils % Seg Neuts % (Manual) Lymphocytes % (Manual) Seg Neutrophils # Seg Neutrophils # Man Lymphocytes # (Manual) D-Dimer ABG pH POC ABG pCO2 68.6 H POC ABG pO2 ABG pO2 ABG HCO3 ABG O2 Saturation ABG Base Excess ABG Hemoglobin ABG Oxyhemoglobin ABG Sodium ABG Potassium 4.7 H ABG Chloride ABG Glucose 226 H Oxyhemoglobin Sodium Potassium Chloride Carbon Dioxide BUN Creatinine Glucose POC Glucose 171 H 201 H Lactic Acid Calcium Magnesium Ferritin Total Bilirubin Direct Bilirubin AST ALT Alkaline Phosphatase Lactate Dehydrogenase C-Reactive Protein Total Protein Albumin Triglycerides Arterial Blood Glucose 226 H Arterial Blood Ionized Calcium Urine WBC (Auto) Coronavirus (PCR) SARS-CoV-2 IgG Ab 05/25/20 05/25/20 05/25/20 08:37 08:37 12:38 WBC 12.0 H RBC 3.64 L MCV 99 H MCH 33 H MCHC RDW Lymph % (Auto) Lymph # (Auto) Seg Neutrophils % Seg Neuts % (Manual) Lymphocytes % (Manual) Seg Neutrophils # Seg Neutrophils # Man Lymphocytes # (Manual) D-Dimer ABG pH POC ABG pCO2 POC ABG pO2 ABG pO2 ABG HCO3 ABG O2 Saturation ABG Base Excess ABG Hemoglobin ABG Oxyhemoglobin ABG Sodium ABG Potassium ABG Chloride ABG Glucose Oxyhemoglobin Sodium Potassium Chloride 97.3 L Carbon Dioxide 35 H BUN 25 H Creatinine 0.7 L Glucose 191 H POC Glucose 182 H Lactic Acid Calcium Magnesium Ferritin Total Bilirubin Direct Bilirubin AST ALT Alkaline Phosphatase Lactate Dehydrogenase C-Reactive Protein Total Protein Albumin Triglycerides Arterial Blood Glucose Arterial Blood Ionized Calcium Urine WBC (Auto) Coronavirus (PCR) SARS-CoV-2 IgG Ab 05/25/20 05/26/20 05/26/20 18:16 00:06 04:50 WBC RBC MCV MCH MCHC RDW Lymph % (Auto) Lymph # (Auto) Seg Neutrophils % Seg Neuts % (Manual) Lymphocytes % (Manual) Seg Neutrophils # Seg Neutrophils # Man Lymphocytes # (Manual) D-Dimer ABG pH POC ABG pCO2 POC ABG pO2 ABG pO2 221.5 H ABG HCO3 40.4 H ABG O2 Saturation 99.3 H ABG Base Excess 12.8 H ABG Hemoglobin 10.4 L ABG Oxyhemoglobin ABG Sodium ABG Potassium ABG Chloride ABG Glucose Oxyhemoglobin Sodium Potassium Chloride Carbon Dioxide BUN Creatinine Glucose POC Glucose 176 H 152 H Lactic Acid Calcium Magnesium Ferritin Total Bilirubin Direct Bilirubin AST ALT Alkaline Phosphatase Lactate Dehydrogenase C-Reactive Protein Total Protein Albumin Triglycerides Arterial Blood Glucose Arterial Blood Ionized Calcium Urine WBC (Auto) Coronavirus (PCR) SARS-CoV-2 IgG Ab 05/26/20 05/26/20 05/26/20 06:11 07:51 07:51 WBC 13.4 H RBC 3.64 L MCV 98 H MCH 33 H MCHC RDW Lymph % (Auto) Lymph # (Auto) Seg Neutrophils % Seg Neuts % (Manual) Lymphocytes % (Manual) Seg Neutrophils # Seg Neutrophils # Man Lymphocytes # (Manual) D-Dimer ABG pH POC ABG pCO2 POC ABG pO2 ABG pO2 ABG HCO3 ABG O2 Saturation ABG Base Excess ABG Hemoglobin ABG Oxyhemoglobin ABG Sodium ABG Potassium ABG Chloride ABG Glucose Oxyhemoglobin Sodium Potassium Chloride 96.6 L Carbon Dioxide 39 H BUN 29 H Creatinine 0.7 L Glucose 174 H POC Glucose 165 H Lactic Acid Calcium Magnesium Ferritin Total Bilirubin Direct Bilirubin AST ALT Alkaline Phosphatase Lactate Dehydrogenase C-Reactive Protein Total Protein Albumin Triglycerides Arterial Blood Glucose Arterial Blood Ionized Calcium Urine WBC (Auto) Coronavirus (PCR) SARS-CoV-2 IgG Ab 05/26/20 05/27/20 05/27/20 23:23 03:43 05:29 WBC RBC MCV MCH MCHC RDW Lymph % (Auto) Lymph # (Auto) Seg Neutrophils % Seg Neuts % (Manual) Lymphocytes % (Manual) Seg Neutrophils # Seg Neutrophils # Man Lymphocytes # (Manual) D-Dimer ABG pH 7.480 H POC ABG pCO2 52.4 H POC ABG pO2 61.4 L ABG pO2 ABG HCO3 ABG O2 Saturation ABG Base Excess ABG Hemoglobin ABG Oxyhemoglobin ABG Sodium 134.9 L ABG Potassium ABG Chloride 95.0 L ABG Glucose 221 H Oxyhemoglobin Sodium Potassium Chloride Carbon Dioxide BUN Creatinine Glucose POC Glucose 169 H 227 H Lactic Acid Calcium Magnesium Ferritin Total Bilirubin Direct Bilirubin AST ALT Alkaline Phosphatase Lactate Dehydrogenase C-Reactive Protein Total Protein Albumin Triglycerides Arterial Blood Glucose 221 H Arterial Blood Ionized Calcium 4.5 L Urine WBC (Auto) Coronavirus (PCR) SARS-CoV-2 IgG Ab 05/27/20 05/27/20 05/27/20 07:19 12:18 13:50 WBC RBC MCV MCH MCHC RDW Lymph % (Auto) Lymph # (Auto) Seg Neutrophils % Seg Neuts % (Manual) Lymphocytes % (Manual) Seg Neutrophils # Seg Neutrophils # Man Lymphocytes # (Manual) D-Dimer ABG pH POC ABG pCO2 POC ABG pO2 ABG pO2 ABG HCO3 ABG O2 Saturation ABG Base Excess ABG Hemoglobin ABG Oxyhemoglobin ABG Sodium ABG Potassium ABG Chloride ABG Glucose Oxyhemoglobin Sodium Potassium Chloride Carbon Dioxide BUN Creatinine Glucose POC Glucose 114 H 148 H Lactic Acid Calcium Magnesium Ferritin Total Bilirubin Direct Bilirubin AST ALT Alkaline Phosphatase Lactate Dehydrogenase C-Reactive Protein Total Protein Albumin Triglycerides 247 H Arterial Blood Glucose Arterial Blood Ionized Calcium Urine WBC (Auto) Coronavirus (PCR) SARS-CoV-2 IgG Ab 05/28/20 05/28/20 05/28/20 00:13 04:16 05:22 WBC RBC MCV MCH MCHC RDW Lymph % (Auto) Lymph # (Auto) Seg Neutrophils % Seg Neuts % (Manual) Lymphocytes % (Manual) Seg Neutrophils # Seg Neutrophils # Man Lymphocytes # (Manual) D-Dimer ABG pH POC ABG pCO2 64.4 H POC ABG pO2 60.5 L ABG pO2 ABG HCO3 ABG O2 Saturation ABG Base Excess ABG Hemoglobin ABG Oxyhemoglobin ABG Sodium ABG Potassium ABG Chloride 95.0 L ABG Glucose 209 H Oxyhemoglobin Sodium Potassium Chloride Carbon Dioxide BUN Creatinine Glucose POC Glucose 155 H 186 H Lactic Acid Calcium Magnesium Ferritin Total Bilirubin Direct Bilirubin AST ALT Alkaline Phosphatase Lactate Dehydrogenase C-Reactive Protein Total Protein Albumin Triglycerides Arterial Blood Glucose 209 H Arterial Blood Ionized Calcium Urine WBC (Auto) Coronavirus (PCR) SARS-CoV-2 IgG Ab 05/28/20 05/28/20 05/29/20 12:45 17:39 00:37 WBC RBC MCV MCH MCHC RDW Lymph % (Auto) Lymph # (Auto) Seg Neutrophils % Seg Neuts % (Manual) Lymphocytes % (Manual) Seg Neutrophils # Seg Neutrophils # Man Lymphocytes # (Manual) D-Dimer ABG pH POC ABG pCO2 POC ABG pO2 ABG pO2 ABG HCO3 ABG O2 Saturation ABG Base Excess ABG Hemoglobin ABG Oxyhemoglobin ABG Sodium ABG Potassium ABG Chloride ABG Glucose Oxyhemoglobin Sodium Potassium Chloride Carbon Dioxide BUN Creatinine Glucose POC Glucose 143 H 164 H 221 H Lactic Acid Calcium Magnesium Ferritin Total Bilirubin Direct Bilirubin AST ALT Alkaline Phosphatase Lactate Dehydrogenase C-Reactive Protein Total Protein Albumin Triglycerides Arterial Blood Glucose Arterial Blood Ionized Calcium Urine WBC (Auto) Coronavirus (PCR) SARS-CoV-2 IgG Ab 05/29/20 05/29/20 04:15 05:33 WBC RBC MCV MCH MCHC RDW Lymph % (Auto) Lymph # (Auto) Seg Neutrophils % Seg Neuts % (Manual) Lymphocytes % (Manual) Seg Neutrophils # Seg Neutrophils # Man Lymphocytes # (Manual) D-Dimer ABG pH 7.463 H POC ABG pCO2 56.3 H POC ABG pO2 81.2 L ABG pO2 ABG HCO3 ABG O2 Saturation ABG Base Excess ABG Hemoglobin ABG Oxyhemoglobin ABG Sodium ABG Potassium ABG Chloride 96.0 L ABG Glucose 194 H Oxyhemoglobin Sodium Potassium Chloride Carbon Dioxide BUN Creatinine Glucose POC Glucose 133 H Lactic Acid Calcium Magnesium Ferritin Total Bilirubin Direct Bilirubin AST ALT Alkaline Phosphatase Lactate Dehydrogenase C-Reactive Protein Total Protein Albumin Triglycerides Arterial Blood Glucose 194 H Arterial Blood Ionized Calcium 4.5 L Urine WBC (Auto) Coronavirus (PCR) SARS-CoV-2 IgG Ab Chest x-ray: image reviewed Allied health notes reviewed: RT
[2020-05-29] MEDS: INSULIN LISPRO 100 UNIT/ML VIAL 3 mL SUB-Q SCH ×2 (13:58→19:22)
[2020-05-29] MEDS: POLYETHYLENE GLYCOL 3350 17 GM POWDER PO SCH (21:52)
--- NOTE | 2020-05-29 22:26 | Progress Note ---
Assessment and Plan Assessment and Plan Patient intubated last night because of persistent hypoxia --Elevated D-dimers; on full dose anticoagulation However ID requested to get CTA chest, patient is unstable to go for CT As he is requiring high flow oxygen. -- Acute hypoxemic respiratory failure; Patient intubated and on vent support --Elevated D-dimers; check CTA to rule out PE Lower extremity venous Doppler to rule out DVT Patient is already on full dose anticoagulation per COVID-19 protocol -- Novel coronavirus infection with Bilateral pneumonia Coronavirus protocol: IV steroid therapy, IV remdesivir, isolation precautions, contact precautions, prone positioning while in bed, pulmonary toilet. consulted ID --Severe sepsis, due to COVID 19 PNA cont to treat for COVID -- Acute kidney injury (SEN) , likely vasomotor nephropathy Resolved, IV fluids, avoid nephrotoxins -- Alcohol dependence; no episodes of withdrawal symptoms Thiamine, folic acid, multivitamin, CIWA protocol. -- Elevated liver function tests Suspected secondary to alcoholic liver disease. Supportive care, alcohol cessation, patient counseled. -- DVT prophylaxis prophylactic AC with lovenox for elevated D-dimer We will closely monitor patient and adjust management as needed Patient has severe Covid pneumonia, severe hypoxia Critically ill very poor prognosis Full CODE STATUS The high probability of a clinically significant, sudden or life threatening deterioration of the [Covid pneumonia, ID, respiratory, liver] system(s) required my full and direct attention, intervention and personal management. The aggregate critical care time was [32] minutes. This time is in addition to time spent performing reported procedures but includes the following: [x] Data Review and interpretation [x] Patient assessment and monitoring of vital signs [x] Documentation [x] Medication orders and management. Subjective Date of service: 05/29/20 Principal diagnosis: Ac hypoxemic resp failure; COVID-19; Severe Sepsis; Shaggy PNA; Alcohol Abuse Interval history: Brief history; 50 YO Male with Obesity, ETOH Dependence presents to ED for evaluation for shortness of breath, generalized weakness, fatigue, malaise, body aches, decreased exercise tolerance over the past 5 days. EMS was notified and upon arrival the patient was found to be in distress with a pulse oximetry of 76% on room air as well as fever to 103 F. In the ER chest x-ray and was found to have bilateral pneumonia. Patient admitted to medical floor and initiated on pneumonia protocol as well as COVID-19 protocol. Patient severe Covid pneumonia, with persistent severe hypoxemia requiring very high flow oxygen Today on continuous BiPAP, patient is in mild distress, critically ill with very poor prognosis. Patient was on high flow oxygen but could not be maintained above 90 hence patient intubated last night electively 05/17/2020; patient with severe COVID-19 pneumonia, in isolation room Patient is on high flow oxygen, and BiPAP 05/18/20; patient feels slightly better still hypoxic, requiring continuous high flow oxygen and BiPAP Respiratory team trying to wean 05/19/20; patient is severely hypoxemic requiring continuous BiPAP today, complains of generalized weakness Trying to wean off high flow oxygen, patient is in isolation 05/20/2020; patient remains on high flow oxygen/BiPAP/100% nonrebreather. Still is hypoxemic Has sinus tachycardia patient in mild distress Wean off high flow oxygen as tolerated, pulmonary critical following 05/21/20; patient is critically ill, on continuous BiPAP remains hypoxemic in mild distress Patient has severe Covid Pneumonia with persistent hypoxemia and poor prognosis 05/22/2020 Patient was intubated last night because of persistent hypoxemia Objective - Constitutional Vitals: Vital Signs - 12hr 05/29/20 05/29/20 05/29/20 11:00 12:00 12:02 Temperature 99.0 F Pulse Rate 103 H 110 H 100 H Pulse Rate [ 110 H From Monitor] Respiratory 20 Rate Blood Pressure 106/56 110/62 O2 Sat by Pulse 100 99 100 Oximetry 05/29/20 05/29/20 05/29/20 12:04 13:00 14:00 Temperature Pulse Rate 110 H 112 H 133 H Pulse Rate [ From Monitor] Respiratory Rate Blood Pressure 123/72 134/82 O2 Sat by Pulse 99 98 85 Oximetry 05/29/20 05/29/20 05/29/20 15:00 16:00 16:25 Temperature 99.4 F Pulse Rate 120 H 119 H 119 H Pulse Rate [ 119 H From Monitor] Respiratory Rate Blood Pressure 112/80 112/76 112/76 O2 Sat by Pulse 97 98 98 Oximetry 05/29/20 05/29/20 05/29/20 17:00 18:00 19:00 Temperature Pulse Rate 117 H 131 H 128 H Pulse Rate [ From Monitor] Respiratory 14 29 H Rate Blood Pressure 101/78 126/90 116/95 O2 Sat by Pulse 96 87 83 L Oximetry 05/29/20 05/29/20 05/29/20 20:00 20:21 21:52 Temperature 98.9 F Pulse Rate 123 H 140 H Pulse Rate [ From Monitor] Respiratory Rate Blood Pressure 127/73 132/80 O2 Sat by Pulse 96 Oximetry General appearance: Present: no acute distress, well-nourished - EENT Eyes: PERRL, EOM intact ENT: hearing intact, clear oral mucosa Ears: bilateral: normal - Neck Neck: supple, normal ROM - Respiratory Respiratory effort: normal Respiratory: bilateral: CTA - Breasts Breasts: normal - Cardiovascular Rhythm: regular Heart Sounds: Present: S1 & S2. Absent: gallop, rub Extremities: pulses intact, No edema, normal color, Full ROM - Gastrointestinal General gastrointestinal: Present: soft, non-tender, non-distended, normal bowel sounds - Genitourinary Male genitourinary: normal - Integumentary Integumentary: clear, warm, dry - Musculoskeletal Musculoskeletal: 1, strength equal bilaterally - Neurologic Neurologic: moves all extremities - Psychiatric Psychiatric: memory intact, appropriate mood/affect, intact judgment & insight - Labs CBC & Chem 7: 05/26/20 07:51 05/26/20 07:51 Labs: Abnormal lab results 05/29/20 05/29/20 05/29/20 Range/Units 00:37 04:15 05:33 ABG pH 7.463 H (7.320-7.450) POC ABG pCO2 56.3 H (32.0-48.0) mmHg POC ABG pO2 81.2 L (83-108) mmHg ABG Chloride 96.0 L (98-107) mmol/L ABG Glucose 194 H (65-95) mg/dL POC Glucose 221 H 133 H (70-105) mg/dL Arterial Blood Glucose 194 H (65-95) mg/dL Arterial Blood Ionized Calcium 4.5 L (4.6-5.3) mg/dL 05/29/20 05/29/20 Range/Units 12:34 18:07 ABG pH (7.320-7.450) POC ABG pCO2 (32.0-48.0) mmHg POC ABG pO2 (83-108) mmHg ABG Chloride (98-107) mmol/L ABG Glucose (65-95) mg/dL POC Glucose 221 H 162 H (70-105) mg/dL Arterial Blood Glucose (65-95) mg/dL Arterial Blood Ionized Calcium (4.6-5.3) mg/dL
[2020-05-30] MEDS: DOCUSATE SODIUM 100 MG/10 ML ORAL LIQD PO SCH ×3 (02:02→21:21)
[2020-05-30] MEDS: fentaNYL DRIP Premix 2,000 MCG/100 ML BAG IV SCH ×4 (03:29→21:39)
[2020-05-30] MEDS: METOCLOPRAMIDE 10 MG/2 ML INJ IV SCH ×3 (06:19→21:23)
[2020-05-30] MEDS: methylPREDNISolone Sod Succinate 40 MG/1 ML INJ IV SCH (06:19)
[2020-05-30] MEDS: INSULIN LISPRO 100 UNIT/ML VIAL 3 mL SUB-Q SCH ×4 (06:21→18:47)
[2020-05-30 09:48] LABS: Hematocrit 34.6 % (35.5-45.6); Hemoglobin 11.3 gm/dl (11.8-15.2); Mean Corpuscular HGB Conc 33 % (32-34); Mean Corpuscular Volume 99 fl (84-94); Platelet Count 194 K/mm3 (140-440); Red Blood Count 3.48 M/mm3 (3.65-5.03); Red Cell Distribution Width 14.1 % (13.2-15.2)
[2020-05-30] MEDS: METOPROLOL TARTRATE 25 MG TAB PO SCH ×2 (10:16→21:40)
[2020-05-30] MEDS: FOLIC ACID 1 MG TAB PO SCH (10:16)
[2020-05-30] MEDS: FAMOTIDINE 20 MG TAB PO SCH ×2 (10:16→21:20)
[2020-05-30] MEDS: ENOXAPARIN 120 MG/0.8 ML INJ SUB-Q SCH ×2 (10:16→21:22)
--- NOTE | 2020-05-30 13:31 | Progress Note ---
Assessment and Plan Acute hypoxemic respiratory failure due to COVID-19 Severe COVID infection Severe Sepsis Bilateral pneumonia Acute kidney injury (SEN) with acute tubular necrosis (ATN)-improving h/o Alcohol dependence Elevated liver function tests probably secondary COVID Continue to wean supplemental oxygen for O2 sats>90% Decrease PEEP to 12, get follow up ABG in 4 hours and address Continue to monitor airway pressures - VAP bundle addressed, aspiration precautions HOB >40 - Continue lung protective strategies, permissive hypercapnic acceptable. -Pa/FIO2 ratio acceptable at this time - continue bronchodilators with pulmonary hygiene per RT - wean per pulmonary driven protocols otherwise - accuchecks with glycemic control per SSI (While critically ill target blood glucose of 140-180 mg/dL; avoid hypoglycemia) - sedation prn for target RASS -1 to -2 - continue enteral nutritional support at goal rate as tolerated - Prone positioning as tolerated and indicated - Monitor liver function test , avoid hepatotoxic agents - Avoid nephrotoxins, renally dose all medications, conservative fluid management - continue to avoid benzodiazepines, reduce the possibility of delirium - prn analgesia per CPOT score - Maintenance of sleep-wake cycle, avoid delirium - continue to avoid benzodiazepines, reduce the possibility of delirium - aspiration precautions -Stress ulcer prophylaxis - PT/OT/ROM exercises - continue mobility protocols for pressure ulcer prevention -CXR, ABG as clinically indicated -CBC, BMP as clinically indicated -Supportive transfusions to keep HgB >7g/dL - Monitor hemodynamics closely - continue other care per attending / other consultants COVID SPECIFIC INTERVENTIONS - SARS CoV-2 IgG positive patient is NOT a candidate for COVID convalescent plasma -Completed remdesivir -continue steroids: on Solu-Medrol, wean -Monitor inflammatory markers - ferritin, Ddimer, CRP, LDH every 3 days -Continue anticoagulation per System Protocol based on d-dimer -Continue contact and airborne isolation .... Re-evaluate in am & prn CONDITION: CRITICAL PROGNOSIS: GUARDED CODE STATUS: FULL CODE The high probability of a clinically significant, sudden or life-threatening deterioration of the [respiratory, cardiovascular, hematologic & neurologic] system(s) required my full and direct attention, intervention and personal management. The aggregate critical care time was [32] minutes without overlap. Time includes spent on; [x] Data Review and interpretation [x] Patient assessment and monitoring of vital signs [x] Documentation [x] Medication orders and management Subjective Date of service: 05/30/20 Principal diagnosis: Ac hypoxemic resp failure; COVID-19; Severe Sepsis; Shaggy PNA; Alcohol Abuse Interval history: Patient is seen today for: Acute hypoxemic respiratory failure due to COVID-19; Severe Sepsis; Bilateral pneumonia; Alcohol dependence; Elevated liver function tests Seen and examined at bedside; 24hour events reviewed; nursing and respiratory care staff consulted; no adverse overnight events reported to me; resting in bed; remains on MVS; FiO2 at 45% PEEP +14 -ABG on 45 %PEEP 14 7.46/58/81/39. Objective Vital Signs - 12hr 05/30/20 05/30/20 05/30/20 02:00 03:00 03:57 Temperature 98.9 F Pulse Rate 101 H 94 H Pulse Rate [ From Monitor] Respiratory 16 20 Rate Blood Pressure 85/64 103/79 O2 Sat by Pulse 100 100 Oximetry 05/30/20 05/30/20 05/30/20 04:00 04:04 05:00 Temperature Pulse Rate 93 H 98 H 116 H Pulse Rate [ 113 H From Monitor] Respiratory 19 16 Rate Blood Pressure 112/70 112/70 130/83 O2 Sat by Pulse 98 97 92 Oximetry 05/30/20 05/30/20 05/30/20 06:00 07:00 08:00 Temperature 98.9 F Pulse Rate 113 H 119 H 105 H Pulse Rate [ From Monitor] Respiratory 17 19 10 L Rate Blood Pressure 101/73 123/67 107/64 O2 Sat by Pulse 99 98 98 Oximetry 05/30/20 05/30/20 05/30/20 08:07 09:00 10:00 Temperature Pulse Rate 111 H 102 H 107 H Pulse Rate [ From Monitor] Respiratory 19 23 Rate Blood Pressure 107/64 100/66 98/66 O2 Sat by Pulse 98 98 100 Oximetry 05/30/20 05/30/20 05/30/20 10:16 11:00 11:27 Temperature Pulse Rate 102 H 90 98 H Pulse Rate [ From Monitor] Respiratory 14 Rate Blood Pressure 118/75 118/75 O2 Sat by Pulse 100 100 Oximetry 05/30/20 05/30/20 12:00 13:00 Temperature 98.7 F Pulse Rate 92 H 84 Pulse Rate [ From Monitor] Respiratory 12 14 Rate Blood Pressure 122/68 100/69 O2 Sat by Pulse 100 100 Oximetry Constitutional: asleep, appears uncomfortable, other (middle aged obese male without significant ventilator dyssynchrony) Eyes: non-icteric ENT: oropharynx moist, other (ETT 24 cm CHILO) Neck: supple, no JVD Effort: normal, mildly labored Ascultation: Bilateral: diminished breath sounds, rhonchi Percussion: Bilateral: not dull Cardiovascular: regular rate and rhythm Gastrointestinal: hypoactive bowel sounds, soft, non-tender, non-distended (protuberant) Integumentary: normal Extremities: no cyanosis, no edema, pulses normal, no ischemia or petechiae Neurologic: non-focal exam, pupils equal and round, CN II-XII normal, motor strength normal and, other (sedated) Psychiatric: other (sedated) CBC and BMP: 05/30/20 09:30 05/26/20 07:51 ABG, PT/INR, D-dimer: ABG ABG pH 7.455 (7.320-7.450) H 05/30/20 11:35 POC ABG pCO2 57.5 mmHg (32.0-48.0) H 05/30/20 11:35 ABG pCO2 70.8 mm Hg 05/26/20 04:50 POC ABG pO2 81.5 mmHg (83-108) L 05/30/20 11:35 ABG pO2 221.5 mm Hg (80.0-90.0) H 05/26/20 04:50 POC ABG HCO3 39.5 05/30/20 11:35 ABG O2 Saturation 99.3 % (95.0-99.0) H 05/26/20 04:50 PT/INR, D-dimer D-Dimer 1887.82 ng/mlDDU (0-234) H 05/20/20 08:16 Abnormal lab findings: Abnormal Labs 05/09/20 05/09/20 05/09/20 12:59 12:59 12:59 WBC 11.8 H RBC Hgb Hct MCV 96 H MCH 34 H MCHC 35 H RDW Lymph % (Auto) 6.9 L Lymph # (Auto) 0.8 L Seg Neutrophils % 87.5 H Seg Neuts % (Manual) Lymphocytes % (Manual) Seg Neutrophils # 10.3 H Seg Neutrophils # Man Lymphocytes # (Manual) D-Dimer ABG pH POC ABG pCO2 POC ABG pO2 ABG pO2 ABG HCO3 ABG O2 Saturation ABG Base Excess ABG Hemoglobin ABG Oxyhemoglobin ABG Sodium ABG Potassium ABG Chloride ABG Glucose Oxyhemoglobin Sodium 130 L Potassium 3.5 L Chloride 86.4 L Carbon Dioxide BUN 33 H Creatinine 2.3 H Glucose 156 H POC Glucose Lactic Acid Calcium Magnesium Ferritin Total Bilirubin 3.40 H Direct Bilirubin 1.7 H AST 385 H ALT 134 H Alkaline Phosphatase Lactate Dehydrogenase C-Reactive Protein Total Protein Albumin 3.0 L Triglycerides Arterial Blood Glucose Arterial Blood Ionized Calcium Urine WBC (Auto) Coronavirus (PCR) SARS-CoV-2 IgG Ab 05/09/20 05/09/20 05/09/20 12:59 12:59 12:59 WBC RBC Hgb Hct MCV MCH MCHC RDW Lymph % (Auto) Lymph # (Auto) Seg Neutrophils % Seg Neuts % (Manual) Lymphocytes % (Manual) Seg Neutrophils # Seg Neutrophils # Man Lymphocytes # (Manual) D-Dimer 3242.51 H ABG pH POC ABG pCO2 POC ABG pO2 ABG pO2 ABG HCO3 ABG O2 Saturation ABG Base Excess ABG Hemoglobin ABG Oxyhemoglobin ABG Sodium ABG Potassium ABG Chloride ABG Glucose Oxyhemoglobin Sodium Potassium Chloride Carbon Dioxide BUN Creatinine Glucose 158 H POC Glucose Lactic Acid 3.50 H* Calcium Magnesium Ferritin Total Bilirubin Direct Bilirubin AST ALT Alkaline Phosphatase Lactate Dehydrogenase 2166 H C-Reactive Protein 39.00 H Total Protein Albumin Triglycerides Arterial Blood Glucose Arterial Blood Ionized Calcium Urine WBC (Auto) Coronavirus (PCR) SARS-CoV-2 IgG Ab 05/09/20 05/09/20 05/09/20 12:59 14:20 14:20 WBC RBC Hgb Hct MCV MCH MCHC RDW Lymph % (Auto) Lymph # (Auto) Seg Neutrophils % Seg Neuts % (Manual) Lymphocytes % (Manual) Seg Neutrophils # Seg Neutrophils # Man Lymphocytes # (Manual) D-Dimer 2861.78 H ABG pH POC ABG pCO2 POC ABG pO2 ABG pO2 ABG HCO3 ABG O2 Saturation ABG Base Excess ABG Hemoglobin ABG Oxyhemoglobin ABG Sodium ABG Potassium ABG Chloride ABG Glucose Oxyhemoglobin Sodium Potassium Chloride Carbon Dioxide BUN Creatinine Glucose POC Glucose Lactic Acid 2.20 H* Calcium Magnesium Ferritin 34448.0 H Total Bilirubin Direct Bilirubin AST ALT Alkaline Phosphatase Lactate Dehydrogenase C-Reactive Protein Total Protein Albumin Triglycerides Arterial Blood Glucose Arterial Blood Ionized Calcium Urine WBC (Auto) Coronavirus (PCR) SARS-CoV-2 IgG Ab 05/09/20 05/09/20 05/09/20 14:20 14:20 15:56 WBC RBC Hgb Hct MCV MCH MCHC RDW Lymph % (Auto) Lymph # (Auto) Seg Neutrophils % Seg Neuts % (Manual) Lymphocytes % (Manual) Seg Neutrophils # Seg Neutrophils # Man Lymphocytes # (Manual) D-Dimer ABG pH POC ABG pCO2 POC ABG pO2 57.3 L ABG pO2 ABG HCO3 ABG O2 Saturation ABG Base Excess ABG Hemoglobin ABG Oxyhemoglobin 86.3 L ABG Sodium 129.9 L ABG Potassium ABG Chloride ABG Glucose 146 H Oxyhemoglobin Sodium Potassium Chloride Carbon Dioxide BUN Creatinine Glucose 143 H POC Glucose Lactic Acid Calcium Magnesium Ferritin 42736.0 H Total Bilirubin Direct Bilirubin AST ALT Alkaline Phosphatase Lactate Dehydrogenase 1953 H C-Reactive Protein 33.50 H Total Protein Albumin Triglycerides Arterial Blood Glucose 146 H Arterial Blood Ionized Calcium 3.9 L Urine WBC (Auto) Coronavirus (PCR) SARS-CoV-2 IgG Ab 05/10/20 05/10/20 05/10/20 10:32 10:32 18:50 WBC 15.4 H RBC Hgb Hct MCV 97 H MCH 33 H MCHC RDW 13.1 L Lymph % (Auto) Lymph # (Auto) Seg Neutrophils % Seg Neuts % (Manual) 89.0 H Lymphocytes % (Manual) 8.0 L Seg Neutrophils # Seg Neutrophils # Man 13.7 H Lymphocytes # (Manual) D-Dimer ABG pH POC ABG pCO2 POC ABG pO2 ABG pO2 ABG HCO3 ABG O2 Saturation ABG Base Excess ABG Hemoglobin ABG Oxyhemoglobin ABG Sodium ABG Potassium ABG Chloride ABG Glucose Oxyhemoglobin Sodium 136 L Potassium Chloride 97.4 L Carbon Dioxide BUN 37 H Creatinine 1.7 H Glucose 209 H POC Glucose Lactic Acid Calcium Magnesium Ferritin > 2000.0 H Total Bilirubin Direct Bilirubin AST ALT Alkaline Phosphatase Lactate Dehydrogenase C-Reactive Protein Total Protein Albumin Triglycerides Arterial Blood Glucose Arterial Blood Ionized Calcium Urine WBC (Auto) Coronavirus (PCR) SARS-CoV-2 IgG Ab 05/10/20 05/10/20 05/10/20 18:50 19:00 Unknown WBC RBC Hgb Hct MCV MCH MCHC RDW Lymph % (Auto) Lymph # (Auto) Seg Neutrophils % Seg Neuts % (Manual) Lymphocytes % (Manual) Seg Neutrophils # Seg Neutrophils # Man Lymphocytes # (Manual) D-Dimer > 47567 H ABG pH POC ABG pCO2 POC ABG pO2 ABG pO2 ABG HCO3 ABG O2 Saturation ABG Base Excess ABG Hemoglobin ABG Oxyhemoglobin ABG Sodium ABG Potassium ABG Chloride ABG Glucose Oxyhemoglobin Sodium Potassium Chloride Carbon Dioxide BUN Creatinine Glucose POC Glucose Lactic Acid Calcium Magnesium Ferritin Total Bilirubin Direct Bilirubin AST ALT Alkaline Phosphatase Lactate Dehydrogenase 1879 H C-Reactive Protein 24.80 H Total Protein Albumin Triglycerides Arterial Blood Glucose Arterial Blood Ionized Calcium Urine WBC (Auto) 11.0 H Coronavirus (PCR) SARS-CoV-2 IgG Ab 05/10/20 05/11/20 05/11/20 Unknown 07:30 07:30 WBC RBC Hgb Hct MCV MCH MCHC RDW Lymph % (Auto) Lymph # (Auto) Seg Neutrophils % Seg Neuts % (Manual) Lymphocytes % (Manual) Seg Neutrophils # Seg Neutrophils # Man Lymphocytes # (Manual) D-Dimer > 2000 H ABG pH POC ABG pCO2 POC ABG pO2 ABG pO2 ABG HCO3 ABG O2 Saturation ABG Base Excess ABG Hemoglobin ABG Oxyhemoglobin ABG Sodium ABG Potassium ABG Chloride ABG Glucose Oxyhemoglobin Sodium Potassium Chloride 96.3 L Carbon Dioxide BUN 36 H Creatinine Glucose 161 H POC Glucose Lactic Acid Calcium 8.3 L Magnesium Ferritin Total Bilirubin 1.50 H Direct Bilirubin 0.6 H AST 178 H ALT 111 H Alkaline Phosphatase Lactate Dehydrogenase C-Reactive Protein Total Protein Albumin 3.0 L Triglycerides Arterial Blood Glucose Arterial Blood Ionized Calcium Urine WBC (Auto) Coronavirus (PCR) Positive A SARS-CoV-2 IgG Ab 05/11/20 05/11/20 05/11/20 07:30 07:30 07:30 WBC RBC Hgb Hct MCV MCH MCHC RDW Lymph % (Auto) Lymph # (Auto) Seg Neutrophils % Seg Neuts % (Manual) Lymphocytes % (Manual) Seg Neutrophils # Seg Neutrophils # Man Lymphocytes # (Manual) D-Dimer ABG pH POC ABG pCO2 POC ABG pO2 ABG pO2 ABG HCO3 ABG O2 Saturation ABG Base Excess ABG Hemoglobin ABG Oxyhemoglobin ABG Sodium ABG Potassium ABG Chloride ABG Glucose Oxyhemoglobin Sodium Potassium Chloride Carbon Dioxide BUN Creatinine Glucose POC Glucose Lactic Acid Calcium Magnesium Ferritin 29837.0 H Total Bilirubin Direct Bilirubin AST ALT Alkaline Phosphatase Lactate Dehydrogenase 1523 H C-Reactive Protein 12.90 H Total Protein Albumin Triglycerides Arterial Blood Glucose Arterial Blood Ionized Calcium Urine WBC (Auto) Coronavirus (PCR) SARS-CoV-2 IgG Ab Reactive A 05/13/20 05/13/20 05/15/20 05:20 05:20 08:15 WBC RBC Hgb Hct MCV MCH MCHC RDW Lymph % (Auto) Lymph # (Auto) Seg Neutrophils % Seg Neuts % (Manual) Lymphocytes % (Manual) Seg Neutrophils # Seg Neutrophils # Man Lymphocytes # (Manual) D-Dimer > 88503 H 5318.28 H ABG pH POC ABG pCO2 POC ABG pO2 ABG pO2 ABG HCO3 ABG O2 Saturation ABG Base Excess ABG Hemoglobin ABG Oxyhemoglobin ABG Sodium ABG Potassium ABG Chloride ABG Glucose Oxyhemoglobin Sodium Potassium Chloride Carbon Dioxide 32 H BUN 30 H Creatinine Glucose 156 H POC Glucose Lactic Acid Calcium Magnesium 2.60 H Ferritin Total Bilirubin 1.40 H Direct Bilirubin AST 121 H ALT 119 H Alkaline Phosphatase Lactate Dehydrogenase 957 H C-Reactive Protein 4.00 H Total Protein Albumin 3.0 L Triglycerides Arterial Blood Glucose Arterial Blood Ionized Calcium Urine WBC (Auto) Coronavirus (PCR) SARS-CoV-2 IgG Ab 05/15/20 05/15/20 05/15/20 08:15 08:15 08:15 WBC 12.4 H RBC Hgb Hct MCV 98 H MCH 33 H MCHC RDW Lymph % (Auto) 9.7 L Lymph # (Auto) Seg Neutrophils % 86.8 H Seg Neuts % (Manual) Lymphocytes % (Manual) Seg Neutrophils # 10.8 H Seg Neutrophils # Man Lymphocytes # (Manual) D-Dimer ABG pH POC ABG pCO2 POC ABG pO2 ABG pO2 ABG HCO3 ABG O2 Saturation ABG Base Excess ABG Hemoglobin ABG Oxyhemoglobin ABG Sodium ABG Potassium ABG Chloride ABG Glucose Oxyhemoglobin Sodium Potassium Chloride 94.8 L Carbon Dioxide 32 H BUN 22 H Creatinine Glucose 115 H POC Glucose Lactic Acid Calcium 8.3 L Magnesium Ferritin 2494.0 H Total Bilirubin Direct Bilirubin AST 73 H ALT 121 H Alkaline Phosphatase Lactate Dehydrogenase 835 H C-Reactive Protein 3.40 H Total Protein 6.1 L Albumin 3.0 L Triglycerides Arterial Blood Glucose Arterial Blood Ionized Calcium Urine WBC (Auto) Coronavirus (PCR) SARS-CoV-2 IgG Ab 05/17/20 05/17/20 05/17/20 05:50 05:50 05:50 WBC RBC Hgb Hct MCV MCH MCHC RDW Lymph % (Auto) Lymph # (Auto) Seg Neutrophils % Seg Neuts % (Manual) Lymphocytes % (Manual) Seg Neutrophils # Seg Neutrophils # Man Lymphocytes # (Manual) D-Dimer 2911.42 H ABG pH POC ABG pCO2 POC ABG pO2 ABG pO2 ABG HCO3 ABG O2 Saturation ABG Base Excess ABG Hemoglobin ABG Oxyhemoglobin ABG Sodium ABG Potassium ABG Chloride ABG Glucose Oxyhemoglobin Sodium 136 L Potassium Chloride 96.0 L Carbon Dioxide 34 H BUN 22 H Creatinine Glucose 140 H POC Glucose Lactic Acid Calcium Magnesium Ferritin 2082.0 H Total Bilirubin Direct Bilirubin AST ALT 75 H Alkaline Phosphatase Lactate Dehydrogenase 601 H C-Reactive Protein 2.70 H Total Protein Albumin 2.9 L Triglycerides Arterial Blood Glucose Arterial Blood Ionized Calcium Urine WBC (Auto) Coronavirus (PCR) SARS-CoV-2 IgG Ab 05/17/20 05/18/20 05/20/20 05:50 12:22 08:16 WBC RBC Hgb Hct MCV 98 H MCH 33 H MCHC RDW Lymph % (Auto) 8.0 L Lymph # (Auto) 0.8 L Seg Neutrophils % 89.3 H Seg Neuts % (Manual) Lymphocytes % (Manual) Seg Neutrophils # 8.8 H Seg Neutrophils # Man Lymphocytes # (Manual) D-Dimer 1887.82 H ABG pH POC ABG pCO2 POC ABG pO2 ABG pO2 ABG HCO3 ABG O2 Saturation ABG Base Excess ABG Hemoglobin ABG Oxyhemoglobin ABG Sodium ABG Potassium ABG Chloride ABG Glucose Oxyhemoglobin Sodium Potassium Chloride Carbon Dioxide BUN Creatinine Glucose POC Glucose 178 H Lactic Acid Calcium Magnesium Ferritin Total Bilirubin Direct Bilirubin AST ALT Alkaline Phosphatase Lactate Dehydrogenase C-Reactive Protein Total Protein Albumin Triglycerides Arterial Blood Glucose Arterial Blood Ionized Calcium Urine WBC (Auto) Coronavirus (PCR) SARS-CoV-2 IgG Ab 05/20/20 05/20/20 05/21/20 08:16 08:16 21:10 WBC RBC Hgb Hct MCV MCH MCHC RDW Lymph % (Auto) Lymph # (Auto) Seg Neutrophils % Seg Neuts % (Manual) Lymphocytes % (Manual) Seg Neutrophils # Seg Neutrophils # Man Lymphocytes # (Manual) D-Dimer ABG pH 7.483 H POC ABG pCO2 POC ABG pO2 ABG pO2 50.0 L ABG HCO3 27.0 H ABG O2 Saturation 86.2 L ABG Base Excess 3.7 H ABG Hemoglobin ABG Oxyhemoglobin ABG Sodium ABG Potassium ABG Chloride ABG Glucose Oxyhemoglobin 84.2 L Sodium Potassium Chloride Carbon Dioxide BUN Creatinine Glucose POC Glucose Lactic Acid Calcium Magnesium Ferritin 1960.0 H Total Bilirubin Direct Bilirubin AST ALT Alkaline Phosphatase Lactate Dehydrogenase 705 H C-Reactive Protein 3.10 H Total Protein Albumin Triglycerides Arterial Blood Glucose Arterial Blood Ionized Calcium Urine WBC (Auto) Coronavirus (PCR) SARS-CoV-2 IgG Ab 05/22/20 05/22/20 05/22/20 04:01 07:53 07:53 WBC 19.2 H RBC Hgb Hct MCV 98 H MCH 34 H MCHC RDW Lymph % (Auto) Lymph # (Auto) Seg Neutrophils % Seg Neuts % (Manual) 96.0 H Lymphocytes % (Manual) 1.0 L Seg Neutrophils # Seg Neutrophils # Man 18.4 H Lymphocytes # (Manual) 0.2 L D-Dimer ABG pH POC ABG pCO2 53.8 H POC ABG pO2 125.5 H ABG pO2 ABG HCO3 ABG O2 Saturation ABG Base Excess ABG Hemoglobin ABG Oxyhemoglobin ABG Sodium 131.8 L ABG Potassium 4.8 H ABG Chloride 94.0 L ABG Glucose 163 H Oxyhemoglobin Sodium 131 L Potassium Chloride 93.4 L Carbon Dioxide BUN 40 H Creatinine Glucose 176 H POC Glucose Lactic Acid Calcium Magnesium 2.70 H Ferritin Total Bilirubin 1.80 H Direct Bilirubin AST 45 H ALT 116 H Alkaline Phosphatase 181 H Lactate Dehydrogenase C-Reactive Protein Total Protein Albumin 2.6 L Triglycerides Arterial Blood Glucose 163 H Arterial Blood Ionized Calcium 4.5 L Urine WBC (Auto) Coronavirus (PCR) SARS-CoV-2 IgG Ab 05/23/20 05/24/20 05/24/20 04:17 03:07 04:08 WBC RBC Hgb Hct MCV MCH MCHC RDW Lymph % (Auto) Lymph # (Auto) Seg Neutrophils % Seg Neuts % (Manual) Lymphocytes % (Manual) Seg Neutrophils # Seg Neutrophils # Man Lymphocytes # (Manual) D-Dimer ABG pH 7.328 L POC ABG pCO2 POC ABG pO2 ABG pO2 72.8 L 73.4 L ABG HCO3 31.0 H 34.0 H ABG O2 Saturation 93.5 L ABG Base Excess 3.5 H 7.7 H ABG Hemoglobin 13.3 L 12.1 L ABG Oxyhemoglobin ABG Sodium ABG Potassium ABG Chloride ABG Glucose Oxyhemoglobin 91.5 L 94.3 L Sodium Potassium Chloride Carbon Dioxide BUN Creatinine Glucose POC Glucose 155 H Lactic Acid Calcium Magnesium Ferritin Total Bilirubin Direct Bilirubin AST ALT Alkaline Phosphatase Lactate Dehydrogenase C-Reactive Protein Total Protein Albumin Triglycerides Arterial Blood Glucose Arterial Blood Ionized Calcium Urine WBC (Auto) Coronavirus (PCR) SARS-CoV-2 IgG Ab 05/24/20 05/24/20 05/24/20 09:33 12:21 17:52 WBC RBC Hgb Hct MCV MCH MCHC RDW Lymph % (Auto) Lymph # (Auto) Seg Neutrophils % Seg Neuts % (Manual) Lymphocytes % (Manual) Seg Neutrophils # Seg Neutrophils # Man Lymphocytes # (Manual) D-Dimer ABG pH POC ABG pCO2 POC ABG pO2 ABG pO2 ABG HCO3 ABG O2 Saturation ABG Base Excess ABG Hemoglobin ABG Oxyhemoglobin ABG Sodium ABG Potassium ABG Chloride ABG Glucose Oxyhemoglobin Sodium Potassium Chloride Carbon Dioxide 34 H D BUN 28 H Creatinine 0.7 L Glucose 168 H POC Glucose 173 H 164 H Lactic Acid Calcium Magnesium Ferritin Total Bilirubin Direct Bilirubin AST ALT Alkaline Phosphatase Lactate Dehydrogenase C-Reactive Protein Total Protein Albumin Triglycerides Arterial Blood Glucose Arterial Blood Ionized Calcium Urine WBC (Auto) Coronavirus (PCR) SARS-CoV-2 IgG Ab 05/24/20 05/25/20 05/25/20 23:47 04:29 05:46 WBC RBC Hgb Hct MCV MCH MCHC RDW Lymph % (Auto) Lymph # (Auto) Seg Neutrophils % Seg Neuts % (Manual) Lymphocytes % (Manual) Seg Neutrophils # Seg Neutrophils # Man Lymphocytes # (Manual) D-Dimer ABG pH POC ABG pCO2 68.6 H POC ABG pO2 ABG pO2 ABG HCO3 ABG O2 Saturation ABG Base Excess ABG Hemoglobin ABG Oxyhemoglobin ABG Sodium ABG Potassium 4.7 H ABG Chloride ABG Glucose 226 H Oxyhemoglobin Sodium Potassium Chloride Carbon Dioxide BUN Creatinine Glucose POC Glucose 171 H 201 H Lactic Acid Calcium Magnesium Ferritin Total Bilirubin Direct Bilirubin AST ALT Alkaline Phosphatase Lactate Dehydrogenase C-Reactive Protein Total Protein Albumin Triglycerides Arterial Blood Glucose 226 H Arterial Blood Ionized Calcium Urine WBC (Auto) Coronavirus (PCR) SARS-CoV-2 IgG Ab 05/25/20 05/25/20 05/25/20 08:37 08:37 12:38 WBC 12.0 H RBC 3.64 L Hgb Hct MCV 99 H MCH 33 H MCHC RDW Lymph % (Auto) Lymph # (Auto) Seg Neutrophils % Seg Neuts % (Manual) Lymphocytes % (Manual) Seg Neutrophils # Seg Neutrophils # Man Lymphocytes # (Manual) D-Dimer ABG pH POC ABG pCO2 POC ABG pO2 ABG pO2 ABG HCO3 ABG O2 Saturation ABG Base Excess ABG Hemoglobin ABG Oxyhemoglobin ABG Sodium ABG Potassium ABG Chloride ABG Glucose Oxyhemoglobin Sodium Potassium Chloride 97.3 L Carbon Dioxide 35 H BUN 25 H Creatinine 0.7 L Glucose 191 H POC Glucose 182 H Lactic Acid Calcium Magnesium Ferritin Total Bilirubin Direct Bilirubin AST ALT Alkaline Phosphatase Lactate Dehydrogenase C-Reactive Protein Total Protein Albumin Triglycerides Arterial Blood Glucose Arterial Blood Ionized Calcium Urine WBC (Auto) Coronavirus (PCR) SARS-CoV-2 IgG Ab 05/25/20 05/26/20 05/26/20 18:16 00:06 04:50 WBC RBC Hgb Hct MCV MCH MCHC RDW Lymph % (Auto) Lymph # (Auto) Seg Neutrophils % Seg Neuts % (Manual) Lymphocytes % (Manual) Seg Neutrophils # Seg Neutrophils # Man Lymphocytes # (Manual) D-Dimer ABG pH POC ABG pCO2 POC ABG pO2 ABG pO2 221.5 H ABG HCO3 40.4 H ABG O2 Saturation 99.3 H ABG Base Excess 12.8 H ABG Hemoglobin 10.4 L ABG Oxyhemoglobin ABG Sodium ABG Potassium ABG Chloride ABG Glucose Oxyhemoglobin Sodium Potassium Chloride Carbon Dioxide BUN Creatinine Glucose POC Glucose 176 H 152 H Lactic Acid Calcium Magnesium Ferritin Total Bilirubin Direct Bilirubin AST ALT Alkaline Phosphatase Lactate Dehydrogenase C-Reactive Protein Total Protein Albumin Triglycerides Arterial Blood Glucose Arterial Blood Ionized Calcium Urine WBC (Auto) Coronavirus (PCR) SARS-CoV-2 IgG Ab 05/26/20 05/26/20 05/26/20 06:11 07:51 07:51 WBC 13.4 H RBC 3.64 L Hgb Hct MCV 98 H MCH 33 H MCHC RDW Lymph % (Auto) Lymph # (Auto) Seg Neutrophils % Seg Neuts % (Manual) Lymphocytes % (Manual) Seg Neutrophils # Seg Neutrophils # Man Lymphocytes # (Manual) D-Dimer ABG pH POC ABG pCO2 POC ABG pO2 ABG pO2 ABG HCO3 ABG O2 Saturation ABG Base Excess ABG Hemoglobin ABG Oxyhemoglobin ABG Sodium ABG Potassium ABG Chloride ABG Glucose Oxyhemoglobin Sodium Potassium Chloride 96.6 L Carbon Dioxide 39 H BUN 29 H Creatinine 0.7 L Glucose 174 H POC Glucose 165 H Lactic Acid Calcium Magnesium Ferritin Total Bilirubin Direct Bilirubin AST ALT Alkaline Phosphatase Lactate Dehydrogenase C-Reactive Protein Total Protein Albumin Triglycerides Arterial Blood Glucose Arterial Blood Ionized Calcium Urine WBC (Auto) Coronavirus (PCR) SARS-CoV-2 IgG Ab 05/26/20 05/27/20 05/27/20 23:23 03:43 05:29 WBC RBC Hgb Hct MCV MCH MCHC RDW Lymph % (Auto) Lymph # (Auto) Seg Neutrophils % Seg Neuts % (Manual) Lymphocytes % (Manual) Seg Neutrophils # Seg Neutrophils # Man Lymphocytes # (Manual) D-Dimer ABG pH 7.480 H POC ABG pCO2 52.4 H POC ABG pO2 61.4 L ABG pO2 ABG HCO3 ABG O2 Saturation ABG Base Excess ABG Hemoglobin ABG Oxyhemoglobin ABG Sodium 134.9 L ABG Potassium ABG Chloride 95.0 L ABG Glucose 221 H Oxyhemoglobin Sodium Potassium Chloride Carbon Dioxide BUN Creatinine Glucose POC Glucose 169 H 227 H Lactic Acid Calcium Magnesium Ferritin Total Bilirubin Direct Bilirubin AST ALT Alkaline Phosphatase Lactate Dehydrogenase C-Reactive Protein Total Protein Albumin Triglycerides Arterial Blood Glucose 221 H Arterial Blood Ionized Calcium 4.5 L Urine WBC (Auto) Coronavirus (PCR) SARS-CoV-2 IgG Ab 05/27/20 05/27/20 05/27/20 07:19 12:18 13:50 WBC RBC Hgb Hct MCV MCH MCHC RDW Lymph % (Auto) Lymph # (Auto) Seg Neutrophils % Seg Neuts % (Manual) Lymphocytes % (Manual) Seg Neutrophils # Seg Neutrophils # Man Lymphocytes # (Manual) D-Dimer ABG pH POC ABG pCO2 POC ABG pO2 ABG pO2 ABG HCO3 ABG O2 Saturation ABG Base Excess ABG Hemoglobin ABG Oxyhemoglobin ABG Sodium ABG Potassium ABG Chloride ABG Glucose Oxyhemoglobin Sodium Potassium Chloride Carbon Dioxide BUN Creatinine Glucose POC Glucose 114 H 148 H Lactic Acid Calcium Magnesium Ferritin Total Bilirubin Direct Bilirubin AST ALT Alkaline Phosphatase Lactate Dehydrogenase C-Reactive Protein Total Protein Albumin Triglycerides 247 H Arterial Blood Glucose Arterial Blood Ionized Calcium Urine WBC (Auto) Coronavirus (PCR) SARS-CoV-2 IgG Ab 05/28/20 05/28/20 05/28/20 00:13 04:16 05:22 WBC RBC Hgb Hct MCV MCH MCHC RDW Lymph % (Auto) Lymph # (Auto) Seg Neutrophils % Seg Neuts % (Manual) Lymphocytes % (Manual) Seg Neutrophils # Seg Neutrophils # Man Lymphocytes # (Manual) D-Dimer ABG pH POC ABG pCO2 64.4 H POC ABG pO2 60.5 L ABG pO2 ABG HCO3 ABG O2 Saturation ABG Base Excess ABG Hemoglobin ABG Oxyhemoglobin ABG Sodium ABG Potassium ABG Chloride 95.0 L ABG Glucose 209 H Oxyhemoglobin Sodium Potassium Chloride Carbon Dioxide BUN Creatinine Glucose POC Glucose 155 H 186 H Lactic Acid Calcium Magnesium Ferritin Total Bilirubin Direct Bilirubin AST ALT Alkaline Phosphatase Lactate Dehydrogenase C-Reactive Protein Total Protein Albumin Triglycerides Arterial Blood Glucose 209 H Arterial Blood Ionized Calcium Urine WBC (Auto) Coronavirus (PCR) SARS-CoV-2 IgG Ab 05/28/20 05/28/20 05/29/20 12:45 17:39 00:37 WBC RBC Hgb Hct MCV MCH MCHC RDW Lymph % (Auto) Lymph # (Auto) Seg Neutrophils % Seg Neuts % (Manual) Lymphocytes % (Manual) Seg Neutrophils # Seg Neutrophils # Man Lymphocytes # (Manual) D-Dimer ABG pH POC ABG pCO2 POC ABG pO2 ABG pO2 ABG HCO3 ABG O2 Saturation ABG Base Excess ABG Hemoglobin ABG Oxyhemoglobin ABG Sodium ABG Potassium ABG Chloride ABG Glucose Oxyhemoglobin Sodium Potassium Chloride Carbon Dioxide BUN Creatinine Glucose POC Glucose 143 H 164 H 221 H Lactic Acid Calcium Magnesium Ferritin Total Bilirubin Direct Bilirubin AST ALT Alkaline Phosphatase Lactate Dehydrogenase C-Reactive Protein Total Protein Albumin Triglycerides Arterial Blood Glucose Arterial Blood Ionized Calcium Urine WBC (Auto) Coronavirus (PCR) SARS-CoV-2 IgG Ab 05/29/20 05/29/20 05/29/20 04:15 05:33 12:34 WBC RBC Hgb Hct MCV MCH MCHC RDW Lymph % (Auto) Lymph # (Auto) Seg Neutrophils % Seg Neuts % (Manual) Lymphocytes % (Manual) Seg Neutrophils # Seg Neutrophils # Man Lymphocytes # (Manual) D-Dimer ABG pH 7.463 H POC ABG pCO2 56.3 H POC ABG pO2 81.2 L ABG pO2 ABG HCO3 ABG O2 Saturation ABG Base Excess ABG Hemoglobin ABG Oxyhemoglobin ABG Sodium ABG Potassium ABG Chloride 96.0 L ABG Glucose 194 H Oxyhemoglobin Sodium Potassium Chloride Carbon Dioxide BUN Creatinine Glucose POC Glucose 133 H 221 H Lactic Acid Calcium Magnesium Ferritin Total Bilirubin Direct Bilirubin AST ALT Alkaline Phosphatase Lactate Dehydrogenase C-Reactive Protein Total Protein Albumin Triglycerides Arterial Blood Glucose 194 H Arterial Blood Ionized Calcium 4.5 L Urine WBC (Auto) Coronavirus (PCR) SARS-CoV-2 IgG Ab 05/29/20 05/30/20 05/30/20 18:07 00:12 05:38 WBC RBC Hgb Hct MCV MCH MCHC RDW Lymph % (Auto) Lymph # (Auto) Seg Neutrophils % Seg Neuts % (Manual) Lymphocytes % (Manual) Seg Neutrophils # Seg Neutrophils # Man Lymphocytes # (Manual) D-Dimer ABG pH POC ABG pCO2 POC ABG pO2 ABG pO2 ABG HCO3 ABG O2 Saturation ABG Base Excess ABG Hemoglobin ABG Oxyhemoglobin ABG Sodium ABG Potassium ABG Chloride ABG Glucose Oxyhemoglobin Sodium Potassium Chloride Carbon Dioxide BUN Creatinine Glucose POC Glucose 162 H 190 H 208 H Lactic Acid Calcium Magnesium Ferritin Total Bilirubin Direct Bilirubin AST ALT Alkaline Phosphatase Lactate Dehydrogenase C-Reactive Protein Total Protein Albumin Triglycerides Arterial Blood Glucose Arterial Blood Ionized Calcium Urine WBC (Auto) Coronavirus (PCR) SARS-CoV-2 IgG Ab 05/30/20 05/30/20 05/30/20 09:30 11:35 11:54 WBC 12.4 H RBC 3.48 L Hgb 11.3 L Hct 34.6 L MCV 99 H MCH 33 H MCHC RDW Lymph % (Auto) Lymph # (Auto) Seg Neutrophils % Seg Neuts % (Manual) Lymphocytes % (Manual) Seg Neutrophils # Seg Neutrophils # Man Lymphocytes # (Manual) D-Dimer ABG pH 7.455 H POC ABG pCO2 57.5 H POC ABG pO2 81.5 L ABG pO2 ABG HCO3 ABG O2 Saturation ABG Base Excess ABG Hemoglobin ABG Oxyhemoglobin ABG Sodium ABG Potassium ABG Chloride 96.0 L ABG Glucose 204 H Oxyhemoglobin Sodium Potassium Chloride Carbon Dioxide BUN Creatinine Glucose POC Glucose 183 H Lactic Acid Calcium Magnesium Ferritin Total Bilirubin Direct Bilirubin AST ALT Alkaline Phosphatase Lactate Dehydrogenase C-Reactive Protein Total Protein Albumin Triglycerides Arterial Blood Glucose 204 H Arterial Blood Ionized Calcium Urine WBC (Auto) Coronavirus (PCR) SARS-CoV-2 IgG Ab Allied health notes reviewed: nursing
[2020-05-30] MEDS: LORazepam 2 MG/ML VIAL IV PRN (16:15)
[2020-05-30] MEDS: POLYETHYLENE GLYCOL 3350 17 GM POWDER PO SCH (21:20)
[2020-05-31] MEDS: INSULIN LISPRO 100 UNIT/ML VIAL 3 mL SUB-Q SCH ×4 (01:59→17:38)
[2020-05-31] MEDS: fentaNYL DRIP Premix 2,000 MCG/100 ML BAG IV SCH ×5 (02:02→23:06)
[2020-05-31] MEDS: methylPREDNISolone Sod Succinate 40 MG/1 ML INJ IV SCH ×3 (05:33→17:52)
--- NOTE | 2020-05-31 08:21 | Progress Note ---
Assessment and Plan Assessment and Plan Patient intubated last night because of persistent hypoxia --Elevated D-dimers; on full dose anticoagulation However ID requested to get CTA chest, patient is unstable to go for CT As he is requiring high flow oxygen. -- Acute hypoxemic respiratory failure; Patient intubated and on vent support --Elevated D-dimers; check CTA to rule out PE Lower extremity venous Doppler to rule out DVT Patient is already on full dose anticoagulation per COVID-19 protocol -- Novel coronavirus infection with Bilateral pneumonia Coronavirus protocol: IV steroid therapy, IV remdesivir, isolation precautions, contact precautions, prone positioning while in bed, pulmonary toilet. consulted ID --Severe sepsis, due to COVID 19 PNA cont to treat for COVID -- Acute kidney injury (SEN) , likely vasomotor nephropathy Resolved, IV fluids, avoid nephrotoxins -- Alcohol dependence; no episodes of withdrawal symptoms Thiamine, folic acid, multivitamin, CIWA protocol. -- Elevated liver function tests Suspected secondary to alcoholic liver disease. Supportive care, alcohol cessation, patient counseled. -- DVT prophylaxis prophylactic AC with lovenox for elevated D-dimer We will closely monitor patient and adjust management as needed Patient has severe Covid pneumonia, severe hypoxia Critically ill very poor prognosis Full CODE STATUS The high probability of a clinically significant, sudden or life threatening deterioration of the [Covid pneumonia, ID, respiratory, liver] system(s) required my full and direct attention, intervention and personal management. The aggregate critical care time was [32] minutes. This time is in addition to time spent performing reported procedures but includes the following: [x] Data Review and interpretation [x] Patient assessment and monitoring of vital signs [x] Documentation [x] Medication orders and management. Subjective Date of service: 05/30/20 Principal diagnosis: Ac hypoxemic resp failure; COVID-19; Severe Sepsis; Shaggy PNA; Alcohol Abuse Interval history: Brief history; 50 YO Male with Obesity, ETOH Dependence presents to ED for evaluation for shortness of breath, generalized weakness, fatigue, malaise, body aches, decreased exercise tolerance over the past 5 days. EMS was notified and upon arrival the patient was found to be in distress with a pulse oximetry of 76% on room air as well as fever to 103 F. In the ER chest x-ray and was found to have bilateral pneumonia. Patient admitted to medical floor and initiated on pneumonia protocol as well as COVID-19 protocol. Patient severe Covid pneumonia, with persistent severe hypoxemia requiring very high flow oxygen Today on continuous BiPAP, patient is in mild distress, critically ill with very poor prognosis. Patient was on high flow oxygen but could not be maintained above 90 hence patient intubated last night electively 05/17/2020; patient with severe COVID-19 pneumonia, in isolation room Patient is on high flow oxygen, and BiPAP 05/18/20; patient feels slightly better still hypoxic, requiring continuous high flow oxygen and BiPAP Respiratory team trying to wean 05/19/20; patient is severely hypoxemic requiring continuous BiPAP today, complains of generalized weakness Trying to wean off high flow oxygen, patient is in isolation 05/20/2020; patient remains on high flow oxygen/BiPAP/100% nonrebreather. Still is hypoxemic Has sinus tachycardia patient in mild distress Wean off high flow oxygen as tolerated, pulmonary critical following 05/21/20; patient is critically ill, on continuous BiPAP remains hypoxemic in mild distress Patient has severe Covid Pneumonia with persistent hypoxemia and poor prognosis 05/22/2020 Patient was intubated last night because of persistent hypoxemia Objective - Constitutional Vitals: Vital Signs - 12hr 05/30/20 05/30/20 05/30/20 21:00 21:40 22:00 Temperature Pulse Rate 108 H 109 H 109 H Pulse Rate [ From Monitor] Pulse Rate [ Right Dorsalis Pedis] Respiratory 20 17 Rate Blood Pressure 121/63 103/62 100/59 O2 Sat by Pulse 97 99 Oximetry 05/30/20 05/30/20 05/30/20 22:10 23:00 23:25 Temperature Pulse Rate 106 H 105 H 102 H Pulse Rate [ From Monitor] Pulse Rate [ Right Dorsalis Pedis] Respiratory 21 Rate Blood Pressure 110/60 110/60 O2 Sat by Pulse 88 91 Oximetry 05/31/20 05/31/20 05/31/20 00:00 01:00 02:00 Temperature 98.8 F Pulse Rate 105 H 104 H 99 H Pulse Rate [ From Monitor] Pulse Rate [ Right Dorsalis Pedis] Respiratory 12 14 15 Rate Blood Pressure 95/51 98/60 106/58 O2 Sat by Pulse 95 99 100 Oximetry 05/31/20 05/31/20 05/31/20 03:00 03:23 03:28 Temperature 98.8 F Pulse Rate 102 H Pulse Rate [ 111 H From Monitor] Pulse Rate [ 111 H Right Dorsalis Pedis] Respiratory 17 17 Rate Blood Pressure 97/58 O2 Sat by Pulse 99 84 Oximetry 05/31/20 05/31/20 05/31/20 03:32 04:00 05:00 Temperature 98.2 F Pulse Rate 100 H 104 H 103 H Pulse Rate [ From Monitor] Pulse Rate [ Right Dorsalis Pedis] Respiratory 22 15 Rate Blood Pressure 91/54 88/62 123/73 O2 Sat by Pulse 96 93 93 Oximetry 05/31/20 05/31/20 06:00 08:14 Temperature Pulse Rate 113 H 110 H Pulse Rate [ From Monitor] Pulse Rate [ Right Dorsalis Pedis] Respiratory 18 Rate Blood Pressure 134/79 110/67 O2 Sat by Pulse 89 95 Oximetry General appearance: Present: no acute distress, well-nourished - EENT Eyes: PERRL, EOM intact ENT: hearing intact, clear oral mucosa Ears: bilateral: normal - Neck Neck: supple, normal ROM - Respiratory Respiratory effort: normal Respiratory: bilateral: CTA - Breasts Breasts: normal - Cardiovascular Rhythm: regular Heart Sounds: Present: S1 & S2. Absent: gallop, rub Extremities: pulses intact, No edema, normal color, Full ROM - Gastrointestinal General gastrointestinal: Present: soft, non-tender, non-distended, normal bowel sounds - Genitourinary Male genitourinary: normal - Integumentary Integumentary: clear, warm, dry - Musculoskeletal Musculoskeletal: 1, strength equal bilaterally - Neurologic Neurologic: moves all extremities - Psychiatric Psychiatric: memory intact, appropriate mood/affect, intact judgment & insight - Labs CBC & Chem 7: 05/30/20 09:30 05/26/20 07:51 Labs: Abnormal lab results 05/30/20 05/30/20 05/30/20 Range/Units 09:30 11:35 11:54 WBC 12.4 H (4.5-11.0) K/mm3 RBC 3.48 L (3.65-5.03) M/mm3 Hgb 11.3 L (11.8-15.2) gm/dl Hct 34.6 L (35.5-45.6) % MCV 99 H (84-94) fl MCH 33 H (28-32) pg ABG pH 7.455 H (7.320-7.450) POC ABG pCO2 57.5 H (32.0-48.0) mmHg POC ABG pO2 81.5 L (83-108) mmHg ABG Chloride 96.0 L (98-107) mmol/L ABG Glucose 204 H (65-95) mg/dL POC Glucose 183 H (70-105) mg/dL Arterial Blood Glucose 204 H (65-95) mg/dL Arterial Blood Ionized Calcium (4.6-5.3) mg/dL 05/30/20 05/31/20 05/31/20 Range/Units 18:01 00:10 03:22 WBC (4.5-11.0) K/mm3 RBC (3.65-5.03) M/mm3 Hgb (11.8-15.2) gm/dl Hct (35.5-45.6) % MCV (84-94) fl MCH (28-32) pg ABG pH (7.320-7.450) POC ABG pCO2 60.4 H (32.0-48.0) mmHg POC ABG pO2 71.5 L (83-108) mmHg ABG Chloride 96.0 L (98-107) mmol/L ABG Glucose 169 H (65-95) mg/dL POC Glucose 184 H 135 H (70-105) mg/dL Arterial Blood Glucose 169 H (65-95) mg/dL Arterial Blood Ionized Calcium 4.5 L (4.6-5.3) mg/dL 05/31/20 Range/Units 05:24 WBC (4.5-11.0) K/mm3 RBC (3.65-5.03) M/mm3 Hgb (11.8-15.2) gm/dl Hct (35.5-45.6) % MCV (84-94) fl MCH (28-32) pg ABG pH (7.320-7.450) POC ABG pCO2 (32.0-48.0) mmHg POC ABG pO2 (83-108) mmHg ABG Chloride (98-107) mmol/L ABG Glucose (65-95) mg/dL POC Glucose 164 H (70-105) mg/dL Arterial Blood Glucose (65-95) mg/dL Arterial Blood Ionized Calcium (4.6-5.3) mg/dL
[2020-05-31] MEDS: METOCLOPRAMIDE 10 MG/2 ML INJ IV SCH (08:43)
[2020-05-31] MEDS: METOPROLOL TARTRATE 25 MG TAB PO SCH ×2 (09:52→22:09)
[2020-05-31] MEDS: DOCUSATE SODIUM 100 MG/10 ML ORAL LIQD PO SCH ×2 (09:52→23:02)
[2020-05-31] MEDS: FAMOTIDINE 20 MG TAB PO SCH ×2 (09:52→23:02)
[2020-05-31] MEDS: FOLIC ACID 1 MG TAB PO SCH (09:52)
[2020-05-31] MEDS: ENOXAPARIN 120 MG/0.8 ML INJ SUB-Q SCH ×2 (09:53→23:01)
--- NOTE | 2020-05-31 13:04 | Progress Note ---
Assessment and Plan Acute hypoxemic respiratory failure due to COVID-19 Severe Sepsis Bilateral pneumonia Acute kidney injury (SEN) with acute tubular necrosis (ATN) Alcohol dependence Elevated liver function tests - get BMP, Mg & PO4 and address - continue bowel regimen - continue to wean supplemental oxygen for target O2 sat's > 92% acutely - keep peep at 12 for now - continue care as below otherwise; - continue Daily SAT and SBT assessment as tolerated - VAP bundle addressed - continue lung protective strategies - continue bronchodilators with pulmonary hygiene per RT - wean per pulmonary driven protocols otherwise - accuchecks with glycemic control per SSI (While critically ill target blood glucose of 140-180 mg/dL; avoid hypoglycemia) - sedation prn for target RASS -1 to -2 - continue enteral nutritional support at goal rate as tolerated - continue airborne and contact isolation - follow repeat COVID-19 testing - continue Zinc & Vit C supplementaion - continue systemic steroids for Asthma / severe COVID infection - Prone positioning as tolerated - continue empiric full dose anticoagulation re: elevated d-dimers / hyperc oagulable state - NOT a candidate for COVID convalescent plasma - continue systemic steroids X >/= 10 days - complete remdesivir dosing (total 5 days) - Monitor liver function test on Remdesivir - trend inflammatory markers - ferritin, Ddimer, CRP, LDH; to aid clinical decision making - empiric AB's coverage per ID rec's otherwise - accuchecks with glycemic control per SSI (While critically ill target blood glucose of 140-180 mg/dL; avoid hypoglycemia) - avoid nephrotoxins, renally dose all medications - continue to avoid benzodiazepine's, reduce the possibility of delirium - prn analgesia per CPOT score - Maintenance of sleep-wake cycle, avoid delirium - continue to avoid benzodiazepine's, reduce the possibility of delirium - aspiration precautions - G.I. & VTE prophylaxis - PT/OT/ROM exercises - continue mobility protocols for pressure ulcer prophylaxis - Monitor hemodynamics closely - continue other care per attending / other consultants - discharge planning ongoing concurrently .... Re-evaluate in am & prn CONDITION: CRITICAL PROGNOSIS: GUARDED CODE STATUS: FULL CODE The high probability of a clinically significant, sudden or life-threatening deterioration of the [respiratory, cardiovascular, hematologic & neurologic] system(s) required my full and direct attention, intervention and personal management. The aggregate critical care time was [34] minutes without overlap. Time includes spent on; [x] Data Review and interpretation [x] Patient assessment and monitoring of vital signs [x] Documentation [x] Medication orders and management Subjective Date of service: 05/31/20 Principal diagnosis: Ac hypoxemic resp failure; COVID-19; Severe Sepsis; Shaggy PNA; Alcohol Abuse Interval history: Patient is seen today for: Acute hypoxemic respiratory failure due to COVID-19; Severe Sepsis; Bilateral pneumonia; Alcohol dependence; Elevated liver function tests Seen and examined at bedside; 24hour events reviewed; nursing and respiratory care staff consulted; no adverse overnight events reported to me; resting in bed; remains on MVS; oxygenation slowly improving; FiO2 down to 45% with peep down to 12; no N/V/F/C and tolerating tube feeds Objective Vital Signs - 12hr 05/31/20 05/31/20 05/31/20 02:00 03:00 03:23 Temperature 98.8 F Pulse Rate 99 H 102 H Pulse Rate [ From Monitor] Pulse Rate [ Right Dorsalis Pedis] Respiratory 15 17 Rate Blood Pressure 106/58 97/58 O2 Sat by Pulse 100 99 Oximetry 05/31/20 05/31/20 05/31/20 03:28 03:32 04:00 Temperature 98.2 F Pulse Rate 100 H 104 H Pulse Rate [ 111 H From Monitor] Pulse Rate [ 111 H Right Dorsalis Pedis] Respiratory 17 22 Rate Blood Pressure 91/54 88/62 O2 Sat by Pulse 84 96 93 Oximetry 05/31/20 05/31/20 05/31/20 05:00 06:00 07:00 Temperature Pulse Rate 103 H 113 H 122 H Pulse Rate [ From Monitor] Pulse Rate [ Right Dorsalis Pedis] Respiratory 15 18 18 Rate Blood Pressure 123/73 134/79 122/74 O2 Sat by Pulse 93 89 100 Oximetry 05/31/20 05/31/20 05/31/20 08:00 08:14 09:00 Temperature 99.1 F Pulse Rate 110 H 110 H 109 H Pulse Rate [ 110 H From Monitor] Pulse Rate [ Right Dorsalis Pedis] Respiratory 20 12 Rate Blood Pressure 110/67 110/67 117/70 O2 Sat by Pulse 97 95 93 Oximetry 05/31/20 05/31/20 05/31/20 09:52 10:00 12:15 Temperature Pulse Rate 109 H 102 H 118 H Pulse Rate [ From Monitor] Pulse Rate [ Right Dorsalis Pedis] Respiratory 15 Rate Blood Pressure 110/66 101/63 121/72 O2 Sat by Pulse 98 95 Oximetry Constitutional: no acute distress, other (middle aged obese male without significant ventilator dyssynchrony) Eyes: non-icteric ENT: oropharynx moist, other (ETT 24 cm CHILO) Neck: supple, no JVD Effort: mildly labored Ascultation: Bilateral: diminished breath sounds, rhonchi (scant) Percussion: Bilateral: not dull Cardiovascular: regular rate and rhythm Gastrointestinal: hypoactive bowel sounds, soft, non-tender, non-distended (protuberant) Integumentary: normal Extremities: no cyanosis, no edema, pulses normal, no ischemia or petechiae Neurologic: non-focal exam, pupils equal and round, CN II-XII normal, motor stre ngth normal and, other (sedated) Psychiatric: other (sedated) CBC and BMP: 05/30/20 09:30 05/26/20 07:51 ABG, PT/INR, D-dimer: ABG ABG pH 7.440 (7.320-7.450) 05/31/20 03:22 POC ABG pCO2 60.4 mmHg (32.0-48.0) H 05/31/20 03:22 ABG pCO2 70.8 mm Hg 05/26/20 04:50 POC ABG pO2 71.5 mmHg (83-108) L 05/31/20 03:22 ABG pO2 221.5 mm Hg (80.0-90.0) H 05/26/20 04:50 POC ABG HCO3 40.1 05/31/20 03:22 ABG O2 Saturation 99.3 % (95.0-99.0) H 05/26/20 04:50 PT/INR, D-dimer D-Dimer 1887.82 ng/mlDDU (0-234) H 05/20/20 08:16 Abnormal lab findings: Abnormal Labs 05/09/20 05/09/20 05/09/20 12:59 12:59 12:59 WBC 11.8 H RBC Hgb Hct MCV 96 H MCH 34 H MCHC 35 H RDW Lymph % (Auto) 6.9 L Lymph # (Auto) 0.8 L Seg Neutrophils % 87.5 H Seg Neuts % (Manual) Lymphocytes % (Manual) Seg Neutrophils # 10.3 H Seg Neutrophils # Man Lymphocytes # (Manual) D-Dimer ABG pH POC ABG pCO2 POC ABG pO2 ABG pO2 ABG HCO3 ABG O2 Saturation ABG Base Excess ABG Hemoglobin ABG Oxyhemoglobin ABG Sodium ABG Potassium ABG Chloride ABG Glucose Oxyhemoglobin Sodium 130 L Potassium 3.5 L Chloride 86.4 L Carbon Dioxide BUN 33 H Creatinine 2.3 H Glucose 156 H POC Glucose Lactic Acid Calcium Magnesium Ferritin Total Bilirubin 3.40 H Direct Bilirubin 1.7 H AST 385 H ALT 134 H Alkaline Phosphatase Lactate Dehydrogenase C-Reactive Protein Total Protein Albumin 3.0 L Triglycerides Arterial Blood Glucose Arterial Blood Ionized Calcium Urine WBC (Auto) Coronavirus (PCR) SARS-CoV-2 IgG Ab 05/09/20 05/09/20 05/09/20 12:59 12:59 12:59 WBC RBC Hgb Hct MCV MCH MCHC RDW Lymph % (Auto) Lymph # (Auto) Seg Neutrophils % Seg Neuts % (Manual) Lymphocytes % (Manual) Seg Neutrophils # Seg Neutrophils # Man Lymphocytes # (Manual) D-Dimer 3242.51 H ABG pH POC ABG pCO2 POC ABG pO2 ABG pO2 ABG HCO3 ABG O2 Saturation ABG Base Excess ABG Hemoglobin ABG Oxyhemoglobin ABG Sodium ABG Potassium ABG Chloride ABG Glucose Oxyhemoglobin Sodium Potassium Chloride Carbon Dioxide BUN Creatinine Glucose 158 H POC Glucose Lactic Acid 3.50 H* Calcium Magnesium Ferritin Total Bilirubin Direct Bilirubin AST ALT Alkaline Phosphatase Lactate Dehydrogenase 2166 H C-Reactive Protein 39.00 H Total Protein Albumin Triglycerides Arterial Blood Glucose Arterial Blood Ionized Calcium Urine WBC (Auto) Coronavirus (PCR) SARS-CoV-2 IgG Ab 05/09/20 05/09/20 05/09/20 12:59 14:20 14:20 WBC RBC Hgb Hct MCV MCH MCHC RDW Lymph % (Auto) Lymph # (Auto) Seg Neutrophils % Seg Neuts % (Manual) Lymphocytes % (Manual) Seg Neutrophils # Seg Neutrophils # Man Lymphocytes # (Manual) D-Dimer 2861.78 H ABG pH POC ABG pCO2 POC ABG pO2 ABG pO2 ABG HCO3 ABG O2 Saturation ABG Base Excess ABG Hemoglobin ABG Oxyhemoglobin ABG Sodium ABG Potassium ABG Chloride ABG Glucose Oxyhemoglobin Sodium Potassium Chloride Carbon Dioxide BUN Creatinine Glucose POC Glucose Lactic Acid 2.20 H* Calcium Magnesium Ferritin 33000.0 H Total Bilirubin Direct Bilirubin AST ALT Alkaline Phosphatase Lactate Dehydrogenase C-Reactive Protein Total Protein Albumin Triglycerides Arterial Blood Glucose Arterial Blood Ionized Calcium Urine WBC (Auto) Coronavirus (PCR) SARS-CoV-2 IgG Ab 05/09/20 05/09/20 05/09/20 14:20 14:20 15:56 WBC RBC Hgb Hct MCV MCH MCHC RDW Lymph % (Auto) Lymph # (Auto) Seg Neutrophils % Seg Neuts % (Manual) Lymphocytes % (Manual) Seg Neutrophils # Seg Neutrophils # Man Lymphocytes # (Manual) D-Dimer ABG pH POC ABG pCO2 POC ABG pO2 57.3 L ABG pO2 ABG HCO3 ABG O2 Saturation ABG Base Excess ABG Hemoglobin ABG Oxyhemoglobin 86.3 L ABG Sodium 129.9 L ABG Potassium ABG Chloride ABG Glucose 146 H Oxyhemoglobin Sodium Potassium Chloride Carbon Dioxide BUN Creatinine Glucose 143 H POC Glucose Lactic Acid Calcium Magnesium Ferritin 83495.0 H Total Bilirubin Direct Bilirubin AST ALT Alkaline Phosphatase Lactate Dehydrogenase 1953 H C-Reactive Protein 33.50 H Total Protein Albumin Triglycerides Arterial Blood Glucose 146 H Arterial Blood Ionized Calcium 3.9 L Urine WBC (Auto) Coronavirus (PCR) SARS-CoV-2 IgG Ab 05/10/20 05/10/20 05/10/20 10:32 10:32 18:50 WBC 15.4 H RBC Hgb Hct MCV 97 H MCH 33 H MCHC RDW 13.1 L Lymph % (Auto) Lymph # (Auto) Seg Neutrophils % Seg Neuts % (Manual) 89.0 H Lymphocytes % (Manual) 8.0 L Seg Neutrophils # Seg Neutrophils # Man 13.7 H Lymphocytes # (Manual) D-Dimer ABG pH POC ABG pCO2 POC ABG pO2 ABG pO2 ABG HCO3 ABG O2 Saturation ABG Base Excess ABG Hemoglobin ABG Oxyhemoglobin ABG Sodium ABG Potassium ABG Chloride ABG Glucose Oxyhemoglobin Sodium 136 L Potassium Chloride 97.4 L Carbon Dioxide BUN 37 H Creatinine 1.7 H Glucose 209 H POC Glucose Lactic Acid Calcium Magnesium Ferritin > 2000.0 H Total Bilirubin Direct Bilirubin AST ALT Alkaline Phosphatase Lactate Dehydrogenase C-Reactive Protein Total Protein Albumin Triglycerides Arterial Blood Glucose Arterial Blood Ionized Calcium Urine WBC (Auto) Coronavirus (PCR) SARS-CoV-2 IgG Ab 05/10/20 05/10/20 05/10/20 18:50 19:00 Unknown WBC RBC Hgb Hct MCV MCH MCHC RDW Lymph % (Auto) Lymph # (Auto) Seg Neutrophils % Seg Neuts % (Manual) Lymphocytes % (Manual) Seg Neutrophils # Seg Neutrophils # Man Lymphocytes # (Manual) D-Dimer > 88675 H ABG pH POC ABG pCO2 POC ABG pO2 ABG pO2 ABG HCO3 ABG O2 Saturation ABG Base Excess ABG Hemoglobin ABG Oxyhemoglobin ABG Sodium ABG Potassium ABG Chloride ABG Glucose Oxyhemoglobin Sodium Potassium Chloride Carbon Dioxide BUN Creatinine Glucose POC Glucose Lactic Acid Calcium Magnesium Ferritin Total Bilirubin Direct Bilirubin AST ALT Alkaline Phosphatase Lactate Dehydrogenase 1879 H C-Reactive Protein 24.80 H Total Protein Albumin Triglycerides Arterial Blood Glucose Arterial Blood Ionized Calcium Urine WBC (Auto) 11.0 H Coronavirus (PCR) SARS-CoV-2 IgG Ab 05/10/20 05/11/20 05/11/20 Unknown 07:30 07:30 WBC RBC Hgb Hct MCV MCH MCHC RDW Lymph % (Auto) Lymph # (Auto) Seg Neutrophils % Seg Neuts % (Manual) Lymphocytes % (Manual) Seg Neutrophils # Seg Neutrophils # Man Lymphocytes # (Manual) D-Dimer > 2000 H ABG pH POC ABG pCO2 POC ABG pO2 ABG pO2 ABG HCO3 ABG O2 Saturation ABG Base Excess ABG Hemoglobin ABG Oxyhemoglobin ABG Sodium ABG Potassium ABG Chloride ABG Glucose Oxyhemoglobin Sodium Potassium Chloride 96.3 L Carbon Dioxide BUN 36 H Creatinine Glucose 161 H POC Glucose Lactic Acid Calcium 8.3 L Magnesium Ferritin Total Bilirubin 1.50 H Direct Bilirubin 0.6 H AST 178 H ALT 111 H Alkaline Phosphatase Lactate Dehydrogenase C-Reactive Protein Total Protein Albumin 3.0 L Triglycerides Arterial Blood Glucose Arterial Blood Ionized Calcium Urine WBC (Auto) Coronavirus (PCR) Positive A SARS-CoV-2 IgG Ab 05/11/20 05/11/20 05/11/20 07:30 07:30 07:30 WBC RBC Hgb Hct MCV MCH MCHC RDW Lymph % (Auto) Lymph # (Auto) Seg Neutrophils % Seg Neuts % (Manual) Lymphocytes % (Manual) Seg Neutrophils # Seg Neutrophils # Man Lymphocytes # (Manual) D-Dimer ABG pH POC ABG pCO2 POC ABG pO2 ABG pO2 ABG HCO3 ABG O2 Saturation ABG Base Excess ABG Hemoglobin ABG Oxyhemoglobin ABG Sodium ABG Potassium ABG Chloride ABG Glucose Oxyhemoglobin Sodium Potassium Chloride Carbon Dioxide BUN Creatinine Glucose POC Glucose Lactic Acid Calcium Magnesium Ferritin 83428.0 H Total Bilirubin Direct Bilirubin AST ALT Alkaline Phosphatase Lactate Dehydrogenase 1523 H C-Reactive Protein 12.90 H Total Protein Albumin Triglycerides Arterial Blood Glucose Arterial Blood Ionized Calcium Urine WBC (Auto) Coronavirus (PCR) SARS-CoV-2 IgG Ab Reactive A 05/13/20 05/13/20 05/15/20 05:20 05:20 08:15 WBC RBC Hgb Hct MCV MCH MCHC RDW Lymph % (Auto) Lymph # (Auto) Seg Neutrophils % Seg Neuts % (Manual) Lymphocytes % (Manual) Seg Neutrophils # Seg Neutrophils # Man Lymphocytes # (Manual) D-Dimer > 51549 H 5318.28 H ABG pH POC ABG pCO2 POC ABG pO2 ABG pO2 ABG HCO3 ABG O2 Saturation ABG Base Excess ABG Hemoglobin ABG Oxyhemoglobin ABG Sodium ABG Potassium ABG Chloride ABG Glucose Oxyhemoglobin Sodium Potassium Chloride Carbon Dioxide 32 H BUN 30 H Creatinine Glucose 156 H POC Glucose Lactic Acid Calcium Magnesium 2.60 H Ferritin Total Bilirubin 1.40 H Direct Bilirubin AST 121 H ALT 119 H Alkaline Phosphatase Lactate Dehydrogenase 957 H C-Reactive Protein 4.00 H Total Protein Albumin 3.0 L Triglycerides Arterial Blood Glucose Arterial Blood Ionized Calcium Urine WBC (Auto) Coronavirus (PCR) SARS-CoV-2 IgG Ab 05/15/20 05/15/20 05/15/20 08:15 08:15 08:15 WBC 12.4 H RBC Hgb Hct MCV 98 H MCH 33 H MCHC RDW Lymph % (Auto) 9.7 L Lymph # (Auto) Seg Neutrophils % 86.8 H Seg Neuts % (Manual) Lymphocytes % (Manual) Seg Neutrophils # 10.8 H Seg Neutrophils # Man Lymphocytes # (Manual) D-Dimer ABG pH POC ABG pCO2 POC ABG pO2 ABG pO2 ABG HCO3 ABG O2 Saturation ABG Base Excess ABG Hemoglobin ABG Oxyhemoglobin ABG Sodium ABG Potassium ABG Chloride ABG Glucose Oxyhemoglobin Sodium Potassium Chloride 94.8 L Carbon Dioxide 32 H BUN 22 H Creatinine Glucose 115 H POC Glucose Lactic Acid Calcium 8.3 L Magnesium Ferritin 2494.0 H Total Bilirubin Direct Bilirubin AST 73 H ALT 121 H Alkaline Phosphatase Lactate Dehydrogenase 835 H C-Reactive Protein 3.40 H Total Protein 6.1 L Albumin 3.0 L Triglycerides Arterial Blood Glucose Arterial Blood Ionized Calcium Urine WBC (Auto) Coronavirus (PCR) SARS-CoV-2 IgG Ab 05/17/20 05/17/20 05/17/20 05:50 05:50 05:50 WBC RBC Hgb Hct MCV MCH MCHC RDW Lymph % (Auto) Lymph # (Auto) Seg Neutrophils % Seg Neuts % (Manual) Lymphocytes % (Manual) Seg Neutrophils # Seg Neutrophils # Man Lymphocytes # (Manual) D-Dimer 2911.42 H ABG pH POC ABG pCO2 POC ABG pO2 ABG pO2 ABG HCO3 ABG O2 Saturation ABG Base Excess ABG Hemoglobin ABG Oxyhemoglobin ABG Sodium ABG Potassium ABG Chloride ABG Glucose Oxyhemoglobin Sodium 136 L Potassium Chloride 96.0 L Carbon Dioxide 34 H BUN 22 H Creatinine Glucose 140 H POC Glucose Lactic Acid Calcium Magnesium Ferritin 2082.0 H Total Bilirubin Direct Bilirubin AST ALT 75 H Alkaline Phosphatase Lactate Dehydrogenase 601 H C-Reactive Protein 2.70 H Total Protein Albumin 2.9 L Triglycerides Arterial Blood Glucose Arterial Blood Ionized Calcium Urine WBC (Auto) Coronavirus (PCR) SARS-CoV-2 IgG Ab 05/17/20 05/18/20 05/20/20 05:50 12:22 08:16 WBC RBC Hgb Hct MCV 98 H MCH 33 H MCHC RDW Lymph % (Auto) 8.0 L Lymph # (Auto) 0.8 L Seg Neutrophils % 89.3 H Seg Neuts % (Manual) Lymphocytes % (Manual) Seg Neutrophils # 8.8 H Seg Neutrophils # Man Lymphocytes # (Manual) D-Dimer 1887.82 H ABG pH POC ABG pCO2 POC ABG pO2 ABG pO2 ABG HCO3 ABG O2 Saturation ABG Base Excess ABG Hemoglobin ABG Oxyhemoglobin ABG Sodium ABG Potassium ABG Chloride ABG Glucose Oxyhemoglobin Sodium Potassium Chloride Carbon Dioxide BUN Creatinine Glucose POC Glucose 178 H Lactic Acid Calcium Magnesium Ferritin Total Bilirubin Direct Bilirubin AST ALT Alkaline Phosphatase Lactate Dehydrogenase C-Reactive Protein Total Protein Albumin Triglycerides Arterial Blood Glucose Arterial Blood Ionized Calcium Urine WBC (Auto) Coronavirus (PCR) SARS-CoV-2 IgG Ab 05/20/20 05/20/20 05/21/20 08:16 08:16 21:10 WBC RBC Hgb Hct MCV MCH MCHC RDW Lymph % (Auto) Lymph # (Auto) Seg Neutrophils % Seg Neuts % (Manual) Lymphocytes % (Manual) Seg Neutrophils # Seg Neutrophils # Man Lymphocytes # (Manual) D-Dimer ABG pH 7.483 H POC ABG pCO2 POC ABG pO2 ABG pO2 50.0 L ABG HCO3 27.0 H ABG O2 Saturation 86.2 L ABG Base Excess 3.7 H ABG Hemoglobin ABG Oxyhemoglobin ABG Sodium ABG Potassium ABG Chloride ABG Glucose Oxyhemoglobin 84.2 L Sodium Potassium Chloride Carbon Dioxide BUN Creatinine Glucose POC Glucose Lactic Acid Calcium Magnesium Ferritin 1960.0 H Total Bilirubin Direct Bilirubin AST ALT Alkaline Phosphatase Lactate Dehydrogenase 705 H C-Reactive Protein 3.10 H Total Protein Albumin Triglycerides Arterial Blood Glucose Arterial Blood Ionized Calcium Urine WBC (Auto) Coronavirus (PCR) SARS-CoV-2 IgG Ab 05/22/20 05/22/20 05/22/20 04:01 07:53 07:53 WBC 19.2 H RBC Hgb Hct MCV 98 H MCH 34 H MCHC RDW Lymph % (Auto) Lymph # (Auto) Seg Neutrophils % Seg Neuts % (Manual) 96.0 H Lymphocytes % (Manual) 1.0 L Seg Neutrophils # Seg Neutrophils # Man 18.4 H Lymphocytes # (Manual) 0.2 L D-Dimer ABG pH POC ABG pCO2 53.8 H POC ABG pO2 125.5 H ABG pO2 ABG HCO3 ABG O2 Saturation ABG Base Excess ABG Hemoglobin ABG Oxyhemoglobin ABG Sodium 131.8 L ABG Potassium 4.8 H ABG Chloride 94.0 L ABG Glucose 163 H Oxyhemoglobin Sodium 131 L Potassium Chloride 93.4 L Carbon Dioxide BUN 40 H Creatinine Glucose 176 H POC Glucose Lactic Acid Calcium Magnesium 2.70 H Ferritin Total Bilirubin 1.80 H Direct Bilirubin AST 45 H ALT 116 H Alkaline Phosphatase 181 H Lactate Dehydrogenase C-Reactive Protein Total Protein Albumin 2.6 L Triglycerides Arterial Blood Glucose 163 H Arterial Blood Ionized Calcium 4.5 L Urine WBC (Auto) Coronavirus (PCR) SARS-CoV-2 IgG Ab 05/23/20 05/24/20 05/24/20 04:17 03:07 04:08 WBC RBC Hgb Hct MCV MCH MCHC RDW Lymph % (Auto) Lymph # (Auto) Seg Neutrophils % Seg Neuts % (Manual) Lymphocytes % (Manual) Seg Neutrophils # Seg Neutrophils # Man Lymphocytes # (Manual) D-Dimer ABG pH 7.328 L POC ABG pCO2 POC ABG pO2 ABG pO2 72.8 L 73.4 L ABG HCO3 31.0 H 34.0 H ABG O2 Saturation 93.5 L ABG Base Excess 3.5 H 7.7 H ABG Hemoglobin 13.3 L 12.1 L ABG Oxyhemoglobin ABG Sodium ABG Potassium ABG Chloride ABG Glucose Oxyhemoglobin 91.5 L 94.3 L Sodium Potassium Chloride Carbon Dioxide BUN Creatinine Glucose POC Glucose 155 H Lactic Acid Calcium Magnesium Ferritin Total Bilirubin Direct Bilirubin AST ALT Alkaline Phosphatase Lactate Dehydrogenase C-Reactive Protein Total Protein Albumin Triglycerides Arterial Blood Glucose Arterial Blood Ionized Calcium Urine WBC (Auto) Coronavirus (PCR) SARS-CoV-2 IgG Ab 05/24/20 05/24/20 05/24/20 09:33 12:21 17:52 WBC RBC Hgb Hct MCV MCH MCHC RDW Lymph % (Auto) Lymph # (Auto) Seg Neutrophils % Seg Neuts % (Manual) Lymphocytes % (Manual) Seg Neutrophils # Seg Neutrophils # Man Lymphocytes # (Manual) D-Dimer ABG pH POC ABG pCO2 POC ABG pO2 ABG pO2 ABG HCO3 ABG O2 Saturation ABG Base Excess ABG Hemoglobin ABG Oxyhemoglobin ABG Sodium ABG Potassium ABG Chloride ABG Glucose Oxyhemoglobin Sodium Potassium Chloride Carbon Dioxide 34 H D BUN 28 H Creatinine 0.7 L Glucose 168 H POC Glucose 173 H 164 H Lactic Acid Calcium Magnesium Ferritin Total Bilirubin Direct Bilirubin AST ALT Alkaline Phosphatase Lactate Dehydrogenase C-Reactive Protein Total Protein Albumin Triglycerides Arterial Blood Glucose Arterial Blood Ionized Calcium Urine WBC (Auto) Coronavirus (PCR) SARS-CoV-2 IgG Ab 05/24/20 05/25/20 05/25/20 23:47 04:29 05:46 WBC RBC Hgb Hct MCV MCH MCHC RDW Lymph % (Auto) Lymph # (Auto) Seg Neutrophils % Seg Neuts % (Manual) Lymphocytes % (Manual) Seg Neutrophils # Seg Neutrophils # Man Lymphocytes # (Manual) D-Dimer ABG pH POC ABG pCO2 68.6 H POC ABG pO2 ABG pO2 ABG HCO3 ABG O2 Saturation ABG Base Excess ABG Hemoglobin ABG Oxyhemoglobin ABG Sodium ABG Potassium 4.7 H ABG Chloride ABG Glucose 226 H Oxyhemoglobin Sodium Potassium Chloride Carbon Dioxide BUN Creatinine Glucose POC Glucose 171 H 201 H Lactic Acid Calcium Magnesium Ferritin Total Bilirubin Direct Bilirubin AST ALT Alkaline Phosphatase Lactate Dehydrogenase C-Reactive Protein Total Protein Albumin Triglycerides Arterial Blood Glucose 226 H Arterial Blood Ionized Calcium Urine WBC (Auto) Coronavirus (PCR) SARS-CoV-2 IgG Ab 05/25/20 05/25/20 05/25/20 08:37 08:37 12:38 WBC 12.0 H RBC 3.64 L Hgb Hct MCV 99 H MCH 33 H MCHC RDW Lymph % (Auto) Lymph # (Auto) Seg Neutrophils % Seg Neuts % (Manual) Lymphocytes % (Manual) Seg Neutrophils # Seg Neutrophils # Man Lymphocytes # (Manual) D-Dimer ABG pH POC ABG pCO2 POC ABG pO2 ABG pO2 ABG HCO3 ABG O2 Saturation ABG Base Excess ABG Hemoglobin ABG Oxyhemoglobin ABG Sodium ABG Potassium ABG Chloride ABG Glucose Oxyhemoglobin Sodium Potassium Chloride 97.3 L Carbon Dioxide 35 H BUN 25 H Creatinine 0.7 L Glucose 191 H POC Glucose 182 H Lactic Acid Calcium Magnesium Ferritin Total Bilirubin Direct Bilirubin AST ALT Alkaline Phosphatase Lactate Dehydrogenase C-Reactive Protein Total Protein Albumin Triglycerides Arterial Blood Glucose Arterial Blood Ionized Calcium Urine WBC (Auto) Coronavirus (PCR) SARS-CoV-2 IgG Ab 05/25/20 05/26/20 05/26/20 18:16 00:06 04:50 WBC RBC Hgb Hct MCV MCH MCHC RDW Lymph % (Auto) Lymph # (Auto) Seg Neutrophils % Seg Neuts % (Manual) Lymphocytes % (Manual) Seg Neutrophils # Seg Neutrophils # Man Lymphocytes # (Manual) D-Dimer ABG pH POC ABG pCO2 POC ABG pO2 ABG pO2 221.5 H ABG HCO3 40.4 H ABG O2 Saturation 99.3 H ABG Base Excess 12.8 H ABG Hemoglobin 10.4 L ABG Oxyhemoglobin ABG Sodium ABG Potassium ABG Chloride ABG Glucose Oxyhemoglobin Sodium Potassium Chloride Carbon Dioxide BUN Creatinine Glucose POC Glucose 176 H 152 H Lactic Acid Calcium Magnesium Ferritin Total Bilirubin Direct Bilirubin AST ALT Alkaline Phosphatase Lactate Dehydrogenase C-Reactive Protein Total Protein Albumin Triglycerides Arterial Blood Glucose Arterial Blood Ionized Calcium Urine WBC (Auto) Coronavirus (PCR) SARS-CoV-2 IgG Ab 05/26/20 05/26/20 05/26/20 06:11 07:51 07:51 WBC 13.4 H RBC 3.64 L Hgb Hct MCV 98 H MCH 33 H MCHC RDW Lymph % (Auto) Lymph # (Auto) Seg Neutrophils % Seg Neuts % (Manual) Lymphocytes % (Manual) Seg Neutrophils # Seg Neutrophils # Man Lymphocytes # (Manual) D-Dimer ABG pH POC ABG pCO2 POC ABG pO2 ABG pO2 ABG HCO3 ABG O2 Saturation ABG Base Excess ABG Hemoglobin ABG Oxyhemoglobin ABG Sodium ABG Potassium ABG Chloride ABG Glucose Oxyhemoglobin Sodium Potassium Chloride 96.6 L Carbon Dioxide 39 H BUN 29 H Creatinine 0.7 L Glucose 174 H POC Glucose 165 H Lactic Acid Calcium Magnesium Ferritin Total Bilirubin Direct Bilirubin AST ALT Alkaline Phosphatase Lactate Dehydrogenase C-Reactive Protein Total Protein Albumin Triglycerides Arterial Blood Glucose Arterial Blood Ionized Calcium Urine WBC (Auto) Coronavirus (PCR) SARS-CoV-2 IgG Ab 05/26/20 05/27/20 05/27/20 23:23 03:43 05:29 WBC RBC Hgb Hct MCV MCH MCHC RDW Lymph % (Auto) Lymph # (Auto) Seg Neutrophils % Seg Neuts % (Manual) Lymphocytes % (Manual) Seg Neutrophils # Seg Neutrophils # Man Lymphocytes # (Manual) D-Dimer ABG pH 7.480 H POC ABG pCO2 52.4 H POC ABG pO2 61.4 L ABG pO2 ABG HCO3 ABG O2 Saturation ABG Base Excess ABG Hemoglobin ABG Oxyhemoglobin ABG Sodium 134.9 L ABG Potassium ABG Chloride 95.0 L ABG Glucose 221 H Oxyhemoglobin Sodium Potassium Chloride Carbon Dioxide BUN Creatinine Glucose POC Glucose 169 H 227 H Lactic Acid Calcium Magnesium Ferritin Total Bilirubin Direct Bilirubin AST ALT Alkaline Phosphatase Lactate Dehydrogenase C-Reactive Protein Total Protein Albumin Triglycerides Arterial Blood Glucose 221 H Arterial Blood Ionized Calcium 4.5 L Urine WBC (Auto) Coronavirus (PCR) SARS-CoV-2 IgG Ab 05/27/20 05/27/20 05/27/20 07:19 12:18 13:50 WBC RBC Hgb Hct MCV MCH MCHC RDW Lymph % (Auto) Lymph # (Auto) Seg Neutrophils % Seg Neuts % (Manual) Lymphocytes % (Manual) Seg Neutrophils # Seg Neutrophils # Man Lymphocytes # (Manual) D-Dimer ABG pH POC ABG pCO2 POC ABG pO2 ABG pO2 ABG HCO3 ABG O2 Saturation ABG Base Excess ABG Hemoglobin ABG Oxyhemoglobin ABG Sodium ABG Potassium ABG Chloride ABG Glucose Oxyhemoglobin Sodium Potassium Chloride Carbon Dioxide BUN Creatinine Glucose POC Glucose 114 H 148 H Lactic Acid Calcium Magnesium Ferritin Total Bilirubin Direct Bilirubin AST ALT Alkaline Phosphatase Lactate Dehydrogenase C-Reactive Protein Total Protein Albumin Triglycerides 247 H Arterial Blood Glucose Arterial Blood Ionized Calcium Urine WBC (Auto) Coronavirus (PCR) SARS-CoV-2 IgG Ab 05/28/20 05/28/20 05/28/20 00:13 04:16 05:22 WBC RBC Hgb Hct MCV MCH MCHC RDW Lymph % (Auto) Lymph # (Auto) Seg Neutrophils % Seg Neuts % (Manual) Lymphocytes % (Manual) Seg Neutrophils # Seg Neutrophils # Man Lymphocytes # (Manual) D-Dimer ABG pH POC ABG pCO2 64.4 H POC ABG pO2 60.5 L ABG pO2 ABG HCO3 ABG O2 Saturation ABG Base Excess ABG Hemoglobin ABG Oxyhemoglobin ABG Sodium ABG Potassium ABG Chloride 95.0 L ABG Glucose 209 H Oxyhemoglobin Sodium Potassium Chloride Carbon Dioxide BUN Creatinine Glucose POC Glucose 155 H 186 H Lactic Acid Calcium Magnesium Ferritin Total Bilirubin Direct Bilirubin AST ALT Alkaline Phosphatase Lactate Dehydrogenase C-Reactive Protein Total Protein Albumin Triglycerides Arterial Blood Glucose 209 H Arterial Blood Ionized Calcium Urine WBC (Auto) Coronavirus (PCR) SARS-CoV-2 IgG Ab 05/28/20 05/28/20 05/29/20 12:45 17:39 00:37 WBC RBC Hgb Hct MCV MCH MCHC RDW Lymph % (Auto) Lymph # (Auto) Seg Neutrophils % Seg Neuts % (Manual) Lymphocytes % (Manual) Seg Neutrophils # Seg Neutrophils # Man Lymphocytes # (Manual) D-Dimer ABG pH POC ABG pCO2 POC ABG pO2 ABG pO2 ABG HCO3 ABG O2 Saturation ABG Base Excess ABG Hemoglobin ABG Oxyhemoglobin ABG Sodium ABG Potassium ABG Chloride ABG Glucose Oxyhemoglobin Sodium Potassium Chloride Carbon Dioxide BUN Creatinine Glucose POC Glucose 143 H 164 H 221 H Lactic Acid Calcium Magnesium Ferritin Total Bilirubin Direct Bilirubin AST ALT Alkaline Phosphatase Lactate Dehydrogenase C-Reactive Protein Total Protein Albumin Triglycerides Arterial Blood Glucose Arterial Blood Ionized Calcium Urine WBC (Auto) Coronavirus (PCR) SARS-CoV-2 IgG Ab 05/29/20 05/29/20 05/29/20 04:15 05:33 12:34 WBC RBC Hgb Hct MCV MCH MCHC RDW Lymph % (Auto) Lymph # (Auto) Seg Neutrophils % Seg Neuts % (Manual) Lymphocytes % (Manual) Seg Neutrophils # Seg Neutrophils # Man Lymphocytes # (Manual) D-Dimer ABG pH 7.463 H POC ABG pCO2 56.3 H POC ABG pO2 81.2 L ABG pO2 ABG HCO3 ABG O2 Saturation ABG Base Excess ABG Hemoglobin ABG Oxyhemoglobin ABG Sodium ABG Potassium ABG Chloride 96.0 L ABG Glucose 194 H Oxyhemoglobin Sodium Potassium Chloride Carbon Dioxide BUN Creatinine Glucose POC Glucose 133 H 221 H Lactic Acid Calcium Magnesium Ferritin Total Bilirubin Direct Bilirubin AST ALT Alkaline Phosphatase Lactate Dehydrogenase C-Reactive Protein Total Protein Albumin Triglycerides Arterial Blood Glucose 194 H Arterial Blood Ionized Calcium 4.5 L Urine WBC (Auto) Coronavirus (PCR) SARS-CoV-2 IgG Ab 05/29/20 05/30/20 05/30/20 18:07 00:12 05:38 WBC RBC Hgb Hct MCV MCH MCHC RDW Lymph % (Auto) Lymph # (Auto) Seg Neutrophils % Seg Neuts % (Manual) Lymphocytes % (Manual) Seg Neutrophils # Seg Neutrophils # Man Lymphocytes # (Manual) D-Dimer ABG pH POC ABG pCO2 POC ABG pO2 ABG pO2 ABG HCO3 ABG O2 Saturation ABG Base Excess ABG Hemoglobin ABG Oxyhemoglobin ABG Sodium ABG Potassium ABG Chloride ABG Glucose Oxyhemoglobin Sodium Potassium Chloride Carbon Dioxide BUN Creatinine Glucose POC Glucose 162 H 190 H 208 H Lactic Acid Calcium Magnesium Ferritin Total Bilirubin Direct Bilirubin AST ALT Alkaline Phosphatase Lactate Dehydrogenase C-Reactive Protein Total Protein Albumin Triglycerides Arterial Blood Glucose Arterial Blood Ionized Calcium Urine WBC (Auto) Coronavirus (PCR) SARS-CoV-2 IgG Ab 05/30/20 05/30/20 05/30/20 09:30 11:35 11:54 WBC 12.4 H RBC 3.48 L Hgb 11.3 L Hct 34.6 L MCV 99 H MCH 33 H MCHC RDW Lymph % (Auto) Lymph # (Auto) Seg Neutrophils % Seg Neuts % (Manual) Lymphocytes % (Manual) Seg Neutrophils # Seg Neutrophils # Man Lymphocytes # (Manual) D-Dimer ABG pH 7.455 H POC ABG pCO2 57.5 H POC ABG pO2 81.5 L ABG pO2 ABG HCO3 ABG O2 Saturation ABG Base Excess ABG Hemoglobin ABG Oxyhemoglobin ABG Sodium ABG Potassium ABG Chloride 96.0 L ABG Glucose 204 H Oxyhemoglobin Sodium Potassium Chloride Carbon Dioxide BUN Creatinine Glucose POC Glucose 183 H Lactic Acid Calcium Magnesium Ferritin Total Bilirubin Direct Bilirubin AST ALT Alkaline Phosphatase Lactate Dehydrogenase C-Reactive Protein Total Protein Albumin Triglycerides Arterial Blood Glucose 204 H Arterial Blood Ionized Calcium Urine WBC (Auto) Coronavirus (PCR) SARS-CoV-2 IgG Ab 05/30/20 05/31/20 05/31/20 18:01 00:10 03:22 WBC RBC Hgb Hct MCV MCH MCHC RDW Lymph % (Auto) Lymph # (Auto) Seg Neutrophils % Seg Neuts % (Manual) Lymphocytes % (Manual) Seg Neutrophils # Seg Neutrophils # Man Lymphocytes # (Manual) D-Dimer ABG pH POC ABG pCO2 60.4 H POC ABG pO2 71.5 L ABG pO2 ABG HCO3 ABG O2 Saturation ABG Base Excess ABG Hemoglobin ABG Oxyhemoglobin ABG Sodium ABG Potassium ABG Chloride 96.0 L ABG Glucose 169 H Oxyhemoglobin Sodium Potassium Chloride Carbon Dioxide BUN Creatinine Glucose POC Glucose 184 H 135 H Lactic Acid Calcium Magnesium Ferritin Total Bilirubin Direct Bilirubin AST ALT Alkaline Phosphatase Lactate Dehydrogenase C-Reactive Protein Total Protein Albumin Triglycerides Arterial Blood Glucose 169 H Arterial Blood Ionized Calcium 4.5 L Urine WBC (Auto) Coronavirus (PCR) SARS-CoV-2 IgG Ab 05/31/20 05/31/20 05:24 11:18 WBC RBC Hgb Hct MCV MCH MCHC RDW Lymph % (Auto) Lymph # (Auto) Seg Neutrophils % Seg Neuts % (Manual) Lymphocytes % (Manual) Seg Neutrophils # Seg Neutrophils # Man Lymphocytes # (Manual) D-Dimer ABG pH POC ABG pCO2 POC ABG pO2 ABG pO2 ABG HCO3 ABG O2 Saturation ABG Base Excess ABG Hemoglobin ABG Oxyhemoglobin ABG Sodium ABG Potassium ABG Chloride ABG Glucose Oxyhemoglobin Sodium Potassium Chloride Carbon Dioxide BUN Creatinine Glucose POC Glucose 164 H 208 H Lactic Acid Calcium Magnesium Ferritin Total Bilirubin Direct Bilirubin AST ALT Alkaline Phosphatase Lactate Dehydrogenase C-Reactive Protein Total Protein Albumin Triglycerides Arterial Blood Glucose Arterial Blood Ionized Calcium Urine WBC (Auto) Coronavirus (PCR) SARS-CoV-2 IgG Ab Chest x-ray: pending Allied health notes reviewed: nursing
[2020-05-31 15:23] LABS: Blood Urea Nitrogen 31 mg/dL (9-20); Calcium 8.7 mg/dL (8.4-10.2); Hemolysis Index 7
[2020-05-31 15:32] LABS: BUN/Creatinine Ratio 52
--- NOTE | 2020-05-31 17:22 | Progress Note ---
Assessment and Plan Assessment and Plan Patient intubated last night because of persistent hypoxia --Elevated D-dimers; on full dose anticoagulation However ID requested to get CTA chest, patient is unstable to go for CT As he is requiring high flow oxygen. -- Acute hypoxemic respiratory failure; Patient intubated and on vent support --Elevated D-dimers; check CTA to rule out PE Lower extremity venous Doppler to rule out DVT Patient is already on full dose anticoagulation per COVID-19 protocol -- Novel coronavirus infection with Bilateral pneumonia Coronavirus protocol: IV steroid therapy, IV remdesivir, isolation precautions, contact precautions, prone positioning while in bed, pulmonary toilet. consulted ID --Severe sepsis, due to COVID 19 PNA cont to treat for COVID -- Acute kidney injury (SEN) , likely vasomotor nephropathy Resolved, IV fluids, avoid nephrotoxins -- Alcohol dependence; no episodes of withdrawal symptoms Thiamine, folic acid, multivitamin, CIWA protocol. -- Elevated liver function tests Suspected secondary to alcoholic liver disease. Supportive care, alcohol cessation, patient counseled. -- DVT prophylaxis prophylactic AC with lovenox for elevated D-dimer We will closely monitor patient and adjust management as needed Patient has severe Covid pneumonia, severe hypoxia Critically ill very poor prognosis Full CODE STATUS The high probability of a clinically significant, sudden or life threatening deterioration of the [Covid pneumonia, ID, respiratory, liver] system(s) required my full and direct attention, intervention and personal management. The aggregate critical care time was [32] minutes. This time is in addition to time spent performing reported procedures but includes the following: [x] Data Review and interpretation [x] Patient assessment and monitoring of vital signs [x] Documentation [x] Medication orders and management. Subjective Date of service: 05/31/20 Principal diagnosis: Ac hypoxemic resp failure; COVID-19; Severe Sepsis; Shaggy PNA; Alcohol Abuse Interval history: Brief history; 50 YO Male with Obesity, ETOH Dependence presents to ED for evaluation for shortness of breath, generalized weakness, fatigue, malaise, body aches, decreased exercise tolerance over the past 5 days. EMS was notified and upon arrival the patient was found to be in distress with a pulse oximetry of 76% on room air as well as fever to 103 F. In the ER chest x-ray and was found to have bilateral pneumonia. Patient admitted to medical floor and initiated on pneumonia protocol as well as COVID-19 protocol. Patient severe Covid pneumonia, with persistent severe hypoxemia requiring very high flow oxygen Today on continuous BiPAP, patient is in mild distress, critically ill with very poor prognosis. Patient was on high flow oxygen but could not be maintained above 90 hence patient intubated last night electively 05/17/2020; patient with severe COVID-19 pneumonia, in isolation room Patient is on high flow oxygen, and BiPAP 05/18/20; patient feels slightly better still hypoxic, requiring continuous high flow oxygen and BiPAP Respiratory team trying to wean 05/19/20; patient is severely hypoxemic requiring continuous BiPAP today, complains of generalized weakness Trying to wean off high flow oxygen, patient is in isolation 05/20/2020; patient remains on high flow oxygen/BiPAP/100% nonrebreather. Still is hypoxemic Has sinus tachycardia patient in mild distress Wean off high flow oxygen as tolerated, pulmonary critical following 05/21/20; patient is critically ill, on continuous BiPAP remains hypoxemic in mild distress Patient has severe Covid Pneumonia with persistent hypoxemia and poor prognosis 05/22/2020 Patient was intubated last night because of persistent hypoxemia Objective - Constitutional Vitals: Vital Signs - 12hr 05/31/20 05/31/20 05/31/20 06:00 07:00 08:00 Temperature 99.1 F Pulse Rate 113 H 122 H 110 H Pulse Rate [ 110 H From Monitor] Respiratory 18 18 20 Rate Blood Pressure 134/79 122/74 110/67 O2 Sat by Pulse 89 100 97 Oximetry 05/31/20 05/31/20 05/31/20 08:14 09:00 09:52 Temperature Pulse Rate 110 H 109 H 109 H Pulse Rate [ From Monitor] Respiratory 12 Rate Blood Pressure 110/67 117/70 110/66 O2 Sat by Pulse 95 93 Oximetry 05/31/20 05/31/20 05/31/20 10:00 11:00 12:00 Temperature 99.4 F Pulse Rate 102 H 100 H 129 H Pulse Rate [ 112 H From Monitor] Respiratory 15 12 37 H Rate Blood Pressure 101/63 93/60 129/82 O2 Sat by Pulse 98 96 92 Oximetry 05/31/20 05/31/20 05/31/20 12:15 13:00 14:00 Temperature Pulse Rate 118 H 110 H 107 H Pulse Rate [ From Monitor] Respiratory 11 L 10 L Rate Blood Pressure 121/72 106/58 87/60 O2 Sat by Pulse 95 92 95 Oximetry 05/31/20 16:17 Temperature Pulse Rate 87 Pulse Rate [ From Monitor] Respiratory Rate Blood Pressure 86/65 O2 Sat by Pulse 93 Oximetry General appearance: Present: no acute distress, well-nourished - EENT Eyes: PERRL, EOM intact ENT: hearing intact, clear oral mucosa Ears: bilateral: normal - Neck Neck: supple, normal ROM - Respiratory Respiratory effort: normal Respiratory: bilateral: CTA - Breasts Breasts: normal - Cardiovascular Rhythm: regular Heart Sounds: Present: S1 & S2. Absent: gallop, rub Extremities: pulses intact, No edema, normal color, Full ROM - Gastrointestinal General gastrointestinal: Present: soft, non-tender, non-distended, normal bowel sounds - Genitourinary Male genitourinary: normal - Integumentary Integumentary: clear, warm, dry - Musculoskeletal Musculoskeletal: 1, strength equal bilaterally - Neurologic Neurologic: moves all extremities - Psychiatric Psychiatric: memory intact, appropriate mood/affect, intact judgment & insight - Labs CBC & Chem 7: 05/30/20 09:30 05/31/20 14:41 Labs: Abnormal lab results 05/30/20 05/31/20 05/31/20 Range/Units 18:01 00:10 03:22 POC ABG pCO2 60.4 H (32.0-48.0) mmHg POC ABG pO2 71.5 L (83-108) mmHg ABG Chloride 96.0 L (98-107) mmol/L ABG Glucose 169 H (65-95) mg/dL Chloride (98-107) mmol/L Carbon Dioxide (22-30) mmol/L BUN (9-20) mg/dL Creatinine (0.8-1.3) mg/dL Glucose (75-100) mg/dL POC Glucose 184 H 135 H (70-105) mg/dL Arterial Blood Glucose 169 H (65-95) mg/dL Arterial Blood Ionized Calcium 4.5 L (4.6-5.3) mg/dL 05/31/20 05/31/20 05/31/20 Range/Units 05:24 11:18 14:41 POC ABG pCO2 (32.0-48.0) mmHg POC ABG pO2 (83-108) mmHg ABG Chloride (98-107) mmol/L ABG Glucose (65-95) mg/dL Chloride 96.8 L (98-107) mmol/L Carbon Dioxide 37 H (22-30) mmol/L BUN 31 H (9-20) mg/dL Creatinine 0.6 L (0.8-1.3) mg/dL Glucose 213 H (75-100) mg/dL POC Glucose 164 H 208 H (70-105) mg/dL Arterial Blood Glucose (65-95) mg/dL Arterial Blood Ionized Calcium (4.6-5.3) mg/dL
[2020-05-31] MEDS: LORazepam 2 MG/ML VIAL IV PRN (17:52)
[2020-05-31] MEDS: POLYETHYLENE GLYCOL 3350 17 GM POWDER PO SCH (22:00)
[2020-06-01] MEDS: INSULIN LISPRO 100 UNIT/ML VIAL 3 mL SUB-Q SCH ×5 (02:28→23:15)
[2020-06-01] MEDS: fentaNYL DRIP Premix 2,000 MCG/100 ML BAG IV SCH ×6 (02:53→22:41)
[2020-06-01 08:19] LABS: Hematocrit 34.3 % (35.5-45.6); Hemoglobin 11.1 gm/dl (11.8-15.2); Mean Corpuscular HGB Conc 32 % (32-34); Mean Corpuscular Volume 99 fl (84-94); Platelet Count 229 K/mm3 (140-440); Red Blood Count 3.46 M/mm3 (3.65-5.03); Red Cell Distribution Width 14.6 % (13.2-15.2)
[2020-06-01 08:32] LABS: Alanine Aminotransferase 235 units/L (7-56); Albumin 2.9 g/dL (3.9-5); Blood Urea Nitrogen 30 mg/dL (9-20); Hemolysis Index 7
[2020-06-01 08:51] LABS: BUN/Creatinine Ratio 60
[2020-06-01 10:03] LABS: Total Cells Counted 100
[2020-06-01 10:04] LABS: Basophils % (Manual) 0 % (0.0-1.8); Eosinophils % (Manual) 0 % (0.0-4.3)
[2020-06-01 10:05] LABS: Macrocytosis 1+; Platelet Estimate Consistent w Auto
[2020-06-01] MEDS: DOCUSATE SODIUM 100 MG/10 ML ORAL LIQD PO SCH ×2 (10:08→22:41)
[2020-06-01] MEDS: FOLIC ACID 1 MG TAB PO SCH (10:08)
[2020-06-01] MEDS: ENOXAPARIN 120 MG/0.8 ML INJ SUB-Q SCH ×2 (10:08→22:38)
[2020-06-01] MEDS: FAMOTIDINE 20 MG TAB PO SCH ×2 (10:08→22:43)
[2020-06-01] MEDS: METOPROLOL TARTRATE 25 MG TAB PO SCH ×2 (10:08→22:42)
[2020-06-01] MEDS: methylPREDNISolone Sod Succinate 40 MG/1 ML INJ IV SCH ×2 (10:11→18:22)
--- NOTE | 2020-06-01 13:13 | Progress Note ---
Assessment and Plan Acute hypoxemic respiratory failure due to COVID-19 Severe Sepsis Bilateral pneumonia Acute kidney injury (SEN) with acute tubular necrosis (ATN) Alcohol dependence Elevated liver function tests - Mag Citrate 300 ml's p.o. X 1 - Dulcolax suppository soon thereafter - Mg & PO4 WNL - continue bowel regimen otherwise - continue to wean supplemental oxygen for target O2 sat's > 92% acutely - keep peep at 12 for now - continue care as below otherwise; - continue Daily SAT and SBT assessment as tolerated - VAP bundle addressed - continue lung protective strategies - continue bronchodilators with pulmonary hygiene per RT - wean per pulmonary driven protocols otherwise - accuchecks with glycemic control per SSI (While critically ill target blood glucose of 140-180 mg/dL; avoid hypoglycemia) - sedation prn for target RASS -1 to -2 - continue enteral nutritional support at goal rate as tolerated - continue airborne and contact isolation - follow repeat COVID-19 testing - continue Zinc & Vit C supplementaion - continue systemic steroids for Asthma / severe COVID infection - Prone positioning as tolerated - continue empiric full dose anticoagulation re: elevated d-dimers / hypercoagulable state - NOT a candidate for COVID convalescent plasma - continue systemic steroids X >/= 10 days - complete remdesivir dosing (total 5 days) - Monitor liver function test on Remdesivir - trend inflammatory markers - ferritin, Ddimer, CRP, LDH; to aid clinical decision making - empiric AB's coverage per ID rec's otherwise - accuchecks with glycemic control per SSI (While critically ill target blood glucose of 140-180 mg/dL; avoid hypoglycemia) - avoid nephrotoxins, renally dose all medications - continue to avoid benzodiazepine's, reduce the possibility of delirium - prn analgesia per CPOT score - Maintenance of sleep-wake cycle, avoid delirium - continue to avoid benzodiazepine's, reduce the possibility of delirium - aspiration precautions - G.I. & VTE prophylaxis - PT/OT/ROM exercises - continue mobility protocols for pressure ulcer prophylaxis - Monitor hemodynamics closely - continue other care per attending / other consultants - discharge planning ongoing concurrently .... Re-evaluate in am & prn CONDITION: CRITICAL PROGNOSIS: GUARDED CODE STATUS: FULL CODE The high probability of a clinically significant, sudden or life-threatening deterioration of the [respiratory, cardiovascular, hematologic & neurologic] system(s) required my full and direct attention, intervention and personal management. The aggregate critical care time was [33] minutes without overlap. Time includes spent on; [x] Data Review and interpretation [x] Patient assessment and monitoring of vital signs [x] Documentation [x] Medication orders and management Subjective Date of service: 06/01/20 Principal diagnosis: Ac hypoxemic resp failure; COVID-19; Severe Sepsis; Shaggy PNA; Alcohol Abuse Interval history: Patient is seen today for: Acute hypoxemic respiratory failure due to COVID-19; Severe Sepsis; Bilateral pneumonia; Alcohol dependence; Elevated liver function tests Seen and examined at bedside; 24hour events reviewed; nursing and respiratory care staff consulted; no adverse overnight events reported to me; resting in bed; remains on MVS; still no BM per RN; FiO2 at 50% with peep at 12; no emesis or overt aspiration; no high grade fevers Objective Vital Signs - 12hr 06/01/20 06/01/20 06/01/20 02:00 03:00 03:06 Temperature Pulse Rate 111 H 112 H 114 H Pulse Rate [ From Monitor] Pulse Rate [ Right Dorsalis Pedis] Respiratory 13 14 Rate Blood Pressure 122/69 124/73 124/73 O2 Sat by Pulse 97 94 94 Oximetry 06/01/20 06/01/20 06/01/20 03:51 04:00 05:00 Temperature 98.8 F Pulse Rate 105 H 104 H Pulse Rate [ 102 H From Monitor] Pulse Rate [ 98 H Right Dorsalis Pedis] Respiratory 13 17 Rate Blood Pressure 105/68 94/57 O2 Sat by Pulse 95 95 Oximetry 06/01/20 06/01/20 06/01/20 06:00 07:00 08:00 Temperature 97.2 F L Pulse Rate 97 H 103 H 139 H Pulse Rate [ 110 H From Monitor] Pulse Rate [ Right Dorsalis Pedis] Respiratory 12 10 L 30 H Rate Blood Pressure 97/68 81/60 94/61 O2 Sat by Pulse 92 92 76 L Oximetry 06/01/20 06/01/20 06/01/20 08:10 09:00 09:14 Temperature Pulse Rate 114 H 114 H Pulse Rate [ From Monitor] Pulse Rate [ Right Dorsalis Pedis] Respiratory 10 L Rate Blood Pressure 154/85 163/94 O2 Sat by Pulse 92 94 92 Oximetry 11/24/20 11/24/20 11/24/20 10:00 10:08 11:00 Temperature Pulse Rate 110 H 114 H 100 H Pulse Rate [ From Monitor] Pulse Rate [ Right Dorsalis Pedis] Respiratory 22 13 Rate Blood Pressure 128/79 128/79 101/61 O2 Sat by Pulse 90 96 Oximetry 06/01/20 06/01/20 11:31 12:00 Temperature 98.7 F Pulse Rate 94 H 93 H Pulse Rate [ 85 From Monitor] Pulse Rate [ Right Dorsalis Pedis] Respiratory 13 Rate Blood Pressure 106/60 97/62 O2 Sat by Pulse 96 95 Oximetry Constitutional: asleep, appears uncomfortable, other (middle aged obese male wit hout significant ventilator dyssynchrony) Eyes: non-icteric ENT: oropharynx moist, other (ETT 24 cm CHILO) Neck: supple, no JVD Effort: normal, mildly labored Ascultation: Bilateral: diminished breath sounds, rhonchi Percussion: Bilateral: not dull Cardiovascular: regular rate and rhythm Gastrointestinal: hypoactive bowel sounds, soft, non-tender, non-distended (protuberant) Integumentary: normal Extremities: no cyanosis, no edema, pulses normal, no ischemia or petechiae Neurologic: non-focal exam, pupils equal and round, CN II-XII normal, motor strength normal and, other (sedated) Psychiatric: other (sedated) CBC and BMP: 06/01/20 07:47 06/01/20 07:47 ABG, PT/INR, D-dimer: ABG ABG pH 7.430 (7.320-7.450) 06/01/20 03:48 POC ABG pCO2 59.7 mmHg (32.0-48.0) H 06/01/20 03:48 ABG pCO2 70.8 mm Hg 05/26/20 04:50 POC ABG pO2 73.9 mmHg (83-108) L 06/01/20 03:48 ABG pO2 221.5 mm Hg (80.0-90.0) H 05/26/20 04:50 POC ABG HCO3 38.7 06/01/20 03:48 ABG O2 Saturation 99.3 % (95.0-99.0) H 05/26/20 04:50 PT/INR, D-dimer D-Dimer 1887.82 ng/mlDDU (0-234) H 05/20/20 08:16 Abnormal lab findings: Abnormal Labs 05/09/20 05/09/20 05/09/20 12:59 12:59 12:59 WBC 11.8 H RBC Hgb Hct MCV 96 H MCH 34 H MCHC 35 H RDW Lymph % (Auto) 6.9 L Lymph # (Auto) 0.8 L Seg Neutrophils % 87.5 H Seg Neuts % (Manual) Lymphocytes % (Manual) Seg Neutrophils # 10.3 H Seg Neutrophils # Man Lymphocytes # (Manual) D-Dimer ABG pH POC ABG pCO2 POC ABG pO2 ABG pO2 ABG HCO3 ABG O2 Saturation ABG Base Excess ABG Hemoglobin ABG Oxyhemoglobin ABG Sodium ABG Potassium ABG Chloride ABG Glucose Oxyhemoglobin Sodium 130 L Potassium 3.5 L Chloride 86.4 L Carbon Dioxide BUN 33 H Creatinine 2.3 H Glucose 156 H POC Glucose Lactic Acid Calcium Magnesium Ferritin Total Bilirubin 3.40 H Direct Bilirubin 1.7 H AST 385 H ALT 134 H Alkaline Phosphatase Lactate Dehydrogenase C-Reactive Protein Total Protein Albumin 3.0 L Triglycerides Arterial Blood Glucose Arterial Blood Ionized Calcium Urine WBC (Auto) Coronavirus (PCR) SARS-CoV-2 IgG Ab 05/09/20 05/09/20 05/09/20 12:59 12:59 12:59 WBC RBC Hgb Hct MCV MCH MCHC RDW Lymph % (Auto) Lymph # (Auto) Seg Neutrophils % Seg Neuts % (Manual) Lymphocytes % (Manual) Seg Neutrophils # Seg Neutrophils # Man Lymphocytes # (Manual) D-Dimer 3242.51 H ABG pH POC ABG pCO2 POC ABG pO2 ABG pO2 ABG HCO3 ABG O2 Saturation ABG Base Excess ABG Hemoglobin ABG Oxyhemoglobin ABG Sodium ABG Potassium ABG Chloride ABG Glucose Oxyhemoglobin Sodium Potassium Chloride Carbon Dioxide BUN Creatinine Glucose 158 H POC Glucose Lactic Acid 3.50 H* Calcium Magnesium Ferritin Total Bilirubin Direct Bilirubin AST ALT Alkaline Phosphatase Lactate Dehydrogenase 2166 H C-Reactive Protein 39.00 H Total Protein Albumin Triglycerides Arterial Blood Glucose Arterial Blood Ionized Calcium Urine WBC (Auto) Coronavirus (PCR) SARS-CoV-2 IgG Ab 05/09/20 05/09/20 05/09/20 12:59 14:20 14:20 WBC RBC Hgb Hct MCV MCH MCHC RDW Lymph % (Auto) Lymph # (Auto) Seg Neutrophils % Seg Neuts % (Manual) Lymphocytes % (Manual) Seg Neutrophils # Seg Neutrophils # Man Lymphocytes # (Manual) D-Dimer 2861.78 H ABG pH POC ABG pCO2 POC ABG pO2 ABG pO2 ABG HCO3 ABG O2 Saturation ABG Base Excess ABG Hemoglobin ABG Oxyhemoglobin ABG Sodium ABG Potassium ABG Chloride ABG Glucose Oxyhemoglobin Sodium Potassium Chloride Carbon Dioxide BUN Creatinine Glucose POC Glucose Lactic Acid 2.20 H* Calcium Magnesium Ferritin 56299.0 H Total Bilirubin Direct Bilirubin AST ALT Alkaline Phosphatase Lactate Dehydrogenase C-Reactive Protein Total Protein Albumin Triglycerides Arterial Blood Glucose Arterial Blood Ionized Calcium Urine WBC (Auto) Coronavirus (PCR) SARS-CoV-2 IgG Ab 05/09/20 05/09/20 05/09/20 14:20 14:20 15:56 WBC RBC Hgb Hct MCV MCH MCHC RDW Lymph % (Auto) Lymph # (Auto) Seg Neutrophils % Seg Neuts % (Manual) Lymphocytes % (Manual) Seg Neutrophils # Seg Neutrophils # Man Lymphocytes # (Manual) D-Dimer ABG pH POC ABG pCO2 POC ABG pO2 57.3 L ABG pO2 ABG HCO3 ABG O2 Saturation ABG Base Excess ABG Hemoglobin ABG Oxyhemoglobin 86.3 L ABG Sodium 129.9 L ABG Potassium ABG Chloride ABG Glucose 146 H Oxyhemoglobin Sodium Potassium Chloride Carbon Dioxide BUN Creatinine Glucose 143 H POC Glucose Lactic Acid Calcium Magnesium Ferritin 93293.0 H Total Bilirubin Direct Bilirubin AST ALT Alkaline Phosphatase Lactate Dehydrogenase 1953 H C-Reactive Protein 33.50 H Total Protein Albumin Triglycerides Arterial Blood Glucose 146 H Arterial Blood Ionized Calcium 3.9 L Urine WBC (Auto) Coronavirus (PCR) SARS-CoV-2 IgG Ab 05/10/20 05/10/20 05/10/20 10:32 10:32 18:50 WBC 15.4 H RBC Hgb Hct MCV 97 H MCH 33 H MCHC RDW 13.1 L Lymph % (Auto) Lymph # (Auto) Seg Neutrophils % Seg Neuts % (Manual) 89.0 H Lymphocytes % (Manual) 8.0 L Seg Neutrophils # Seg Neutrophils # Man 13.7 H Lymphocytes # (Manual) D-Dimer ABG pH POC ABG pCO2 POC ABG pO2 ABG pO2 ABG HCO3 ABG O2 Saturation ABG Base Excess ABG Hemoglobin ABG Oxyhemoglobin ABG Sodium ABG Potassium ABG Chloride ABG Glucose Oxyhemoglobin Sodium 136 L Potassium Chloride 97.4 L Carbon Dioxide BUN 37 H Creatinine 1.7 H Glucose 209 H POC Glucose Lactic Acid Calcium Magnesium Ferritin > 2000.0 H Total Bilirubin Direct Bilirubin AST ALT Alkaline Phosphatase Lactate Dehydrogenase C-Reactive Protein Total Protein Albumin Triglycerides Arterial Blood Glucose Arterial Blood Ionized Calcium Urine WBC (Auto) Coronavirus (PCR) SARS-CoV-2 IgG Ab 05/10/20 05/10/20 05/10/20 18:50 19:00 Unknown WBC RBC Hgb Hct MCV MCH MCHC RDW Lymph % (Auto) Lymph # (Auto) Seg Neutrophils % Seg Neuts % (Manual) Lymphocytes % (Manual) Seg Neutrophils # Seg Neutrophils # Man Lymphocytes # (Manual) D-Dimer > 95267 H ABG pH POC ABG pCO2 POC ABG pO2 ABG pO2 ABG HCO3 ABG O2 Saturation ABG Base Excess ABG Hemoglobin ABG Oxyhemoglobin ABG Sodium ABG Potassium ABG Chloride ABG Glucose Oxyhemoglobin Sodium Potassium Chloride Carbon Dioxide BUN Creatinine Glucose POC Glucose Lactic Acid Calcium Magnesium Ferritin Total Bilirubin Direct Bilirubin AST ALT Alkaline Phosphatase Lactate Dehydrogenase 1879 H C-Reactive Protein 24.80 H Total Protein Albumin Triglycerides Arterial Blood Glucose Arterial Blood Ionized Calcium Urine WBC (Auto) 11.0 H Coronavirus (PCR) SARS-CoV-2 IgG Ab 05/10/20 05/11/20 05/11/20 Unknown 07:30 07:30 WBC RBC Hgb Hct MCV MCH MCHC RDW Lymph % (Auto) Lymph # (Auto) Seg Neutrophils % Seg Neuts % (Manual) Lymphocytes % (Manual) Seg Neutrophils # Seg Neutrophils # Man Lymphocytes # (Manual) D-Dimer > 2000 H ABG pH POC ABG pCO2 POC ABG pO2 ABG pO2 ABG HCO3 ABG O2 Saturation ABG Base Excess ABG Hemoglobin ABG Oxyhemoglobin ABG Sodium ABG Potassium ABG Chloride ABG Glucose Oxyhemoglobin Sodium Potassium Chloride 96.3 L Carbon Dioxide BUN 36 H Creatinine Glucose 161 H POC Glucose Lactic Acid Calcium 8.3 L Magnesium Ferritin Total Bilirubin 1.50 H Direct Bilirubin 0.6 H AST 178 H ALT 111 H Alkaline Phosphatase Lactate Dehydrogenase C-Reactive Protein Total Protein Albumin 3.0 L Triglycerides Arterial Blood Glucose Arterial Blood Ionized Calcium Urine WBC (Auto) Coronavirus (PCR) Positive A SARS-CoV-2 IgG Ab 05/11/20 05/11/20 05/11/20 07:30 07:30 07:30 WBC RBC Hgb Hct MCV MCH MCHC RDW Lymph % (Auto) Lymph # (Auto) Seg Neutrophils % Seg Neuts % (Manual) Lymphocytes % (Manual) Seg Neutrophils # Seg Neutrophils # Man Lymphocytes # (Manual) D-Dimer ABG pH POC ABG pCO2 POC ABG pO2 ABG pO2 ABG HCO3 ABG O2 Saturation ABG Base Excess ABG Hemoglobin ABG Oxyhemoglobin ABG Sodium ABG Potassium ABG Chloride ABG Glucose Oxyhemoglobin Sodium Potassium Chloride Carbon Dioxide BUN Creatinine Glucose POC Glucose Lactic Acid Calcium Magnesium Ferritin 19992.0 H Total Bilirubin Direct Bilirubin AST ALT Alkaline Phosphatase Lactate Dehydrogenase 1523 H C-Reactive Protein 12.90 H Total Protein Albumin Triglycerides Arterial Blood Glucose Arterial Blood Ionized Calcium Urine WBC (Auto) Coronavirus (PCR) SARS-CoV-2 IgG Ab Reactive A 05/13/20 05/13/20 05/15/20 05:20 05:20 08:15 WBC RBC Hgb Hct MCV MCH MCHC RDW Lymph % (Auto) Lymph # (Auto) Seg Neutrophils % Seg Neuts % (Manual) Lymphocytes % (Manual) Seg Neutrophils # Seg Neutrophils # Man Lymphocytes # (Manual) D-Dimer > 81678 H 5318.28 H ABG pH POC ABG pCO2 POC ABG pO2 ABG pO2 ABG HCO3 ABG O2 Saturation ABG Base Excess ABG Hemoglobin ABG Oxyhemoglobin ABG Sodium ABG Potassium ABG Chloride ABG Glucose Oxyhemoglobin Sodium Potassium Chloride Carbon Dioxide 32 H BUN 30 H Creatinine Glucose 156 H POC Glucose Lactic Acid Calcium Magnesium 2.60 H Ferritin Total Bilirubin 1.40 H Direct Bilirubin AST 121 H ALT 119 H Alkaline Phosphatase Lactate Dehydrogenase 957 H C-Reactive Protein 4.00 H Total Protein Albumin 3.0 L Triglycerides Arterial Blood Glucose Arterial Blood Ionized Calcium Urine WBC (Auto) Coronavirus (PCR) SARS-CoV-2 IgG Ab 05/15/20 05/15/20 05/15/20 08:15 08:15 08:15 WBC 12.4 H RBC Hgb Hct MCV 98 H MCH 33 H MCHC RDW Lymph % (Auto) 9.7 L Lymph # (Auto) Seg Neutrophils % 86.8 H Seg Neuts % (Manual) Lymphocytes % (Manual) Seg Neutrophils # 10.8 H Seg Neutrophils # Man Lymphocytes # (Manual) D-Dimer ABG pH POC ABG pCO2 POC ABG pO2 ABG pO2 ABG HCO3 ABG O2 Saturation ABG Base Excess ABG Hemoglobin ABG Oxyhemoglobin ABG Sodium ABG Potassium ABG Chloride ABG Glucose Oxyhemoglobin Sodium Potassium Chloride 94.8 L Carbon Dioxide 32 H BUN 22 H Creatinine Glucose 115 H POC Glucose Lactic Acid Calcium 8.3 L Magnesium Ferritin 2494.0 H Total Bilirubin Direct Bilirubin AST 73 H ALT 121 H Alkaline Phosphatase Lactate Dehydrogenase 835 H C-Reactive Protein 3.40 H Total Protein 6.1 L Albumin 3.0 L Triglycerides Arterial Blood Glucose Arterial Blood Ionized Calcium Urine WBC (Auto) Coronavirus (PCR) SARS-CoV-2 IgG Ab 05/17/20 05/17/20 05/17/20 05:50 05:50 05:50 WBC RBC Hgb Hct MCV MCH MCHC RDW Lymph % (Auto) Lymph # (Auto) Seg Neutrophils % Seg Neuts % (Manual) Lymphocytes % (Manual) Seg Neutrophils # Seg Neutrophils # Man Lymphocytes # (Manual) D-Dimer 2911.42 H ABG pH POC ABG pCO2 POC ABG pO2 ABG pO2 ABG HCO3 ABG O2 Saturation ABG Base Excess ABG Hemoglobin ABG Oxyhemoglobin ABG Sodium ABG Potassium ABG Chloride ABG Glucose Oxyhemoglobin Sodium 136 L Potassium Chloride 96.0 L Carbon Dioxide 34 H BUN 22 H Creatinine Glucose 140 H POC Glucose Lactic Acid Calcium Magnesium Ferritin 2082.0 H Total Bilirubin Direct Bilirubin AST ALT 75 H Alkaline Phosphatase Lactate Dehydrogenase 601 H C-Reactive Protein 2.70 H Total Protein Albumin 2.9 L Triglycerides Arterial Blood Glucose Arterial Blood Ionized Calcium Urine WBC (Auto) Coronavirus (PCR) SARS-CoV-2 IgG Ab 05/17/20 05/18/20 05/20/20 05:50 12:22 08:16 WBC RBC Hgb Hct MCV 98 H MCH 33 H MCHC RDW Lymph % (Auto) 8.0 L Lymph # (Auto) 0.8 L Seg Neutrophils % 89.3 H Seg Neuts % (Manual) Lymphocytes % (Manual) Seg Neutrophils # 8.8 H Seg Neutrophils # Man Lymphocytes # (Manual) D-Dimer 1887.82 H ABG pH POC ABG pCO2 POC ABG pO2 ABG pO2 ABG HCO3 ABG O2 Saturation ABG Base Excess ABG Hemoglobin ABG Oxyhemoglobin ABG Sodium ABG Potassium ABG Chloride ABG Glucose Oxyhemoglobin Sodium Potassium Chloride Carbon Dioxide BUN Creatinine Glucose POC Glucose 178 H Lactic Acid Calcium Magnesium Ferritin Total Bilirubin Direct Bilirubin AST ALT Alkaline Phosphatase Lactate Dehydrogenase C-Reactive Protein Total Protein Albumin Triglycerides Arterial Blood Glucose Arterial Blood Ionized Calcium Urine WBC (Auto) Coronavirus (PCR) SARS-CoV-2 IgG Ab 05/20/20 05/20/20 05/21/20 08:16 08:16 21:10 WBC RBC Hgb Hct MCV MCH MCHC RDW Lymph % (Auto) Lymph # (Auto) Seg Neutrophils % Seg Neuts % (Manual) Lymphocytes % (Manual) Seg Neutrophils # Seg Neutrophils # Man Lymphocytes # (Manual) D-Dimer ABG pH 7.483 H POC ABG pCO2 POC ABG pO2 ABG pO2 50.0 L ABG HCO3 27.0 H ABG O2 Saturation 86.2 L ABG Base Excess 3.7 H ABG Hemoglobin ABG Oxyhemoglobin ABG Sodium ABG Potassium ABG Chloride ABG Glucose Oxyhemoglobin 84.2 L Sodium Potassium Chloride Carbon Dioxide BUN Creatinine Glucose POC Glucose Lactic Acid Calcium Magnesium Ferritin 1960.0 H Total Bilirubin Direct Bilirubin AST ALT Alkaline Phosphatase Lactate Dehydrogenase 705 H C-Reactive Protein 3.10 H Total Protein Albumin Triglycerides Arterial Blood Glucose Arterial Blood Ionized Calcium Urine WBC (Auto) Coronavirus (PCR) SARS-CoV-2 IgG Ab 05/22/20 05/22/20 05/22/20 04:01 07:53 07:53 WBC 19.2 H RBC Hgb Hct MCV 98 H MCH 34 H MCHC RDW Lymph % (Auto) Lymph # (Auto) Seg Neutrophils % Seg Neuts % (Manual) 96.0 H Lymphocytes % (Manual) 1.0 L Seg Neutrophils # Seg Neutrophils # Man 18.4 H Lymphocytes # (Manual) 0.2 L D-Dimer ABG pH POC ABG pCO2 53.8 H POC ABG pO2 125.5 H ABG pO2 ABG HCO3 ABG O2 Saturation ABG Base Excess ABG Hemoglobin ABG Oxyhemoglobin ABG Sodium 131.8 L ABG Potassium 4.8 H ABG Chloride 94.0 L ABG Glucose 163 H Oxyhemoglobin Sodium 131 L Potassium Chloride 93.4 L Carbon Dioxide BUN 40 H Creatinine Glucose 176 H POC Glucose Lactic Acid Calcium Magnesium 2.70 H Ferritin Total Bilirubin 1.80 H Direct Bilirubin AST 45 H ALT 116 H Alkaline Phosphatase 181 H Lactate Dehydrogenase C-Reactive Protein Total Protein Albumin 2.6 L Triglycerides Arterial Blood Glucose 163 H Arterial Blood Ionized Calcium 4.5 L Urine WBC (Auto) Coronavirus (PCR) SARS-CoV-2 IgG Ab 05/23/20 05/24/20 05/24/20 04:17 03:07 04:08 WBC RBC Hgb Hct MCV MCH MCHC RDW Lymph % (Auto) Lymph # (Auto) Seg Neutrophils % Seg Neuts % (Manual) Lymphocytes % (Manual) Seg Neutrophils # Seg Neutrophils # Man Lymphocytes # (Manual) D-Dimer ABG pH 7.328 L POC ABG pCO2 POC ABG pO2 ABG pO2 72.8 L 73.4 L ABG HCO3 31.0 H 34.0 H ABG O2 Saturation 93.5 L ABG Base Excess 3.5 H 7.7 H ABG Hemoglobin 13.3 L 12.1 L ABG Oxyhemoglobin ABG Sodium ABG Potassium ABG Chloride ABG Glucose Oxyhemoglobin 91.5 L 94.3 L Sodium Potassium Chloride Carbon Dioxide BUN Creatinine Glucose POC Glucose 155 H Lactic Acid Calcium Magnesium Ferritin Total Bilirubin Direct Bilirubin AST ALT Alkaline Phosphatase Lactate Dehydrogenase C-Reactive Protein Total Protein Albumin Triglycerides Arterial Blood Glucose Arterial Blood Ionized Calcium Urine WBC (Auto) Coronavirus (PCR) SARS-CoV-2 IgG Ab 05/24/20 05/24/20 05/24/20 09:33 12:21 17:52 WBC RBC Hgb Hct MCV MCH MCHC RDW Lymph % (Auto) Lymph # (Auto) Seg Neutrophils % Seg Neuts % (Manual) Lymphocytes % (Manual) Seg Neutrophils # Seg Neutrophils # Man Lymphocytes # (Manual) D-Dimer ABG pH POC ABG pCO2 POC ABG pO2 ABG pO2 ABG HCO3 ABG O2 Saturation ABG Base Excess ABG Hemoglobin ABG Oxyhemoglobin ABG Sodium ABG Potassium ABG Chloride ABG Glucose Oxyhemoglobin Sodium Potassium Chloride Carbon Dioxide 34 H D BUN 28 H Creatinine 0.7 L Glucose 168 H POC Glucose 173 H 164 H Lactic Acid Calcium Magnesium Ferritin Total Bilirubin Direct Bilirubin AST ALT Alkaline Phosphatase Lactate Dehydrogenase C-Reactive Protein Total Protein Albumin Triglycerides Arterial Blood Glucose Arterial Blood Ionized Calcium Urine WBC (Auto) Coronavirus (PCR) SARS-CoV-2 IgG Ab 05/24/20 05/25/20 05/25/20 23:47 04:29 05:46 WBC RBC Hgb Hct MCV MCH MCHC RDW Lymph % (Auto) Lymph # (Auto) Seg Neutrophils % Seg Neuts % (Manual) Lymphocytes % (Manual) Seg Neutrophils # Seg Neutrophils # Man Lymphocytes # (Manual) D-Dimer ABG pH POC ABG pCO2 68.6 H POC ABG pO2 ABG pO2 ABG HCO3 ABG O2 Saturation ABG Base Excess ABG Hemoglobin ABG Oxyhemoglobin ABG Sodium ABG Potassium 4.7 H ABG Chloride ABG Glucose 226 H Oxyhemoglobin Sodium Potassium Chloride Carbon Dioxide BUN Creatinine Glucose POC Glucose 171 H 201 H Lactic Acid Calcium Magnesium Ferritin Total Bilirubin Direct Bilirubin AST ALT Alkaline Phosphatase Lactate Dehydrogenase C-Reactive Protein Total Protein Albumin Triglycerides Arterial Blood Glucose 226 H Arterial Blood Ionized Calcium Urine WBC (Auto) Coronavirus (PCR) SARS-CoV-2 IgG Ab 05/25/20 05/25/20 05/25/20 08:37 08:37 12:38 WBC 12.0 H RBC 3.64 L Hgb Hct MCV 99 H MCH 33 H MCHC RDW Lymph % (Auto) Lymph # (Auto) Seg Neutrophils % Seg Neuts % (Manual) Lymphocytes % (Manual) Seg Neutrophils # Seg Neutrophils # Man Lymphocytes # (Manual) D-Dimer ABG pH POC ABG pCO2 POC ABG pO2 ABG pO2 ABG HCO3 ABG O2 Saturation ABG Base Excess ABG Hemoglobin ABG Oxyhemoglobin ABG Sodium ABG Potassium ABG Chloride ABG Glucose Oxyhemoglobin Sodium Potassium Chloride 97.3 L Carbon Dioxide 35 H BUN 25 H Creatinine 0.7 L Glucose 191 H POC Glucose 182 H Lactic Acid Calcium Magnesium Ferritin Total Bilirubin Direct Bilirubin AST ALT Alkaline Phosphatase Lactate Dehydrogenase C-Reactive Protein Total Protein Albumin Triglycerides Arterial Blood Glucose Arterial Blood Ionized Calcium Urine WBC (Auto) Coronavirus (PCR) SARS-CoV-2 IgG Ab 05/25/20 05/26/20 05/26/20 18:16 00:06 04:50 WBC RBC Hgb Hct MCV MCH MCHC RDW Lymph % (Auto) Lymph # (Auto) Seg Neutrophils % Seg Neuts % (Manual) Lymphocytes % (Manual) Seg Neutrophils # Seg Neutrophils # Man Lymphocytes # (Manual) D-Dimer ABG pH POC ABG pCO2 POC ABG pO2 ABG pO2 221.5 H ABG HCO3 40.4 H ABG O2 Saturation 99.3 H ABG Base Excess 12.8 H ABG Hemoglobin 10.4 L ABG Oxyhemoglobin ABG Sodium ABG Potassium ABG Chloride ABG Glucose Oxyhemoglobin Sodium Potassium Chloride Carbon Dioxide BUN Creatinine Glucose POC Glucose 176 H 152 H Lactic Acid Calcium Magnesium Ferritin Total Bilirubin Direct Bilirubin AST ALT Alkaline Phosphatase Lactate Dehydrogenase C-Reactive Protein Total Protein Albumin Triglycerides Arterial Blood Glucose Arterial Blood Ionized Calcium Urine WBC (Auto) Coronavirus (PCR) SARS-CoV-2 IgG Ab 05/26/20 05/26/20 05/26/20 06:11 07:51 07:51 WBC 13.4 H RBC 3.64 L Hgb Hct MCV 98 H MCH 33 H MCHC RDW Lymph % (Auto) Lymph # (Auto) Seg Neutrophils % Seg Neuts % (Manual) Lymphocytes % (Manual) Seg Neutrophils # Seg Neutrophils # Man Lymphocytes # (Manual) D-Dimer ABG pH POC ABG pCO2 POC ABG pO2 ABG pO2 ABG HCO3 ABG O2 Saturation ABG Base Excess ABG Hemoglobin ABG Oxyhemoglobin ABG Sodium ABG Potassium ABG Chloride ABG Glucose Oxyhemoglobin Sodium Potassium Chloride 96.6 L Carbon Dioxide 39 H BUN 29 H Creatinine 0.7 L Glucose 174 H POC Glucose 165 H Lactic Acid Calcium Magnesium Ferritin Total Bilirubin Direct Bilirubin AST ALT Alkaline Phosphatase Lactate Dehydrogenase C-Reactive Protein Total Protein Albumin Triglycerides Arterial Blood Glucose Arterial Blood Ionized Calcium Urine WBC (Auto) Coronavirus (PCR) SARS-CoV-2 IgG Ab 05/26/20 05/27/20 05/27/20 23:23 03:43 05:29 WBC RBC Hgb Hct MCV MCH MCHC RDW Lymph % (Auto) Lymph # (Auto) Seg Neutrophils % Seg Neuts % (Manual) Lymphocytes % (Manual) Seg Neutrophils # Seg Neutrophils # Man Lymphocytes # (Manual) D-Dimer ABG pH 7.480 H POC ABG pCO2 52.4 H POC ABG pO2 61.4 L ABG pO2 ABG HCO3 ABG O2 Saturation ABG Base Excess ABG Hemoglobin ABG Oxyhemoglobin ABG Sodium 134.9 L ABG Potassium ABG Chloride 95.0 L ABG Glucose 221 H Oxyhemoglobin Sodium Potassium Chloride Carbon Dioxide BUN Creatinine Glucose POC Glucose 169 H 227 H Lactic Acid Calcium Magnesium Ferritin Total Bilirubin Direct Bilirubin AST ALT Alkaline Phosphatase Lactate Dehydrogenase C-Reactive Protein Total Protein Albumin Triglycerides Arterial Blood Glucose 221 H Arterial Blood Ionized Calcium 4.5 L Urine WBC (Auto) Coronavirus (PCR) SARS-CoV-2 IgG Ab 05/27/20 05/27/20 05/27/20 07:19 12:18 13:50 WBC RBC Hgb Hct MCV MCH MCHC RDW Lymph % (Auto) Lymph # (Auto) Seg Neutrophils % Seg Neuts % (Manual) Lymphocytes % (Manual) Seg Neutrophils # Seg Neutrophils # Man Lymphocytes # (Manual) D-Dimer ABG pH POC ABG pCO2 POC ABG pO2 ABG pO2 ABG HCO3 ABG O2 Saturation ABG Base Excess ABG Hemoglobin ABG Oxyhemoglobin ABG Sodium ABG Potassium ABG Chloride ABG Glucose Oxyhemoglobin Sodium Potassium Chloride Carbon Dioxide BUN Creatinine Glucose POC Glucose 114 H 148 H Lactic Acid Calcium Magnesium Ferritin Total Bilirubin Direct Bilirubin AST ALT Alkaline Phosphatase Lactate Dehydrogenase C-Reactive Protein Total Protein Albumin Triglycerides 247 H Arterial Blood Glucose Arterial Blood Ionized Calcium Urine WBC (Auto) Coronavirus (PCR) SARS-CoV-2 IgG Ab 05/28/20 05/28/20 05/28/20 00:13 04:16 05:22 WBC RBC Hgb Hct MCV MCH MCHC RDW Lymph % (Auto) Lymph # (Auto) Seg Neutrophils % Seg Neuts % (Manual) Lymphocytes % (Manual) Seg Neutrophils # Seg Neutrophils # Man Lymphocytes # (Manual) D-Dimer ABG pH POC ABG pCO2 64.4 H POC ABG pO2 60.5 L ABG pO2 ABG HCO3 ABG O2 Saturation ABG Base Excess ABG Hemoglobin ABG Oxyhemoglobin ABG Sodium ABG Potassium ABG Chloride 95.0 L ABG Glucose 209 H Oxyhemoglobin Sodium Potassium Chloride Carbon Dioxide BUN Creatinine Glucose POC Glucose 155 H 186 H Lactic Acid Calcium Magnesium Ferritin Total Bilirubin Direct Bilirubin AST ALT Alkaline Phosphatase Lactate Dehydrogenase C-Reactive Protein Total Protein Albumin Triglycerides Arterial Blood Glucose 209 H Arterial Blood Ionized Calcium Urine WBC (Auto) Coronavirus (PCR) SARS-CoV-2 IgG Ab 05/28/20 05/28/20 05/29/20 12:45 17:39 00:37 WBC RBC Hgb Hct MCV MCH MCHC RDW Lymph % (Auto) Lymph # (Auto) Seg Neutrophils % Seg Neuts % (Manual) Lymphocytes % (Manual) Seg Neutrophils # Seg Neutrophils # Man Lymphocytes # (Manual) D-Dimer ABG pH POC ABG pCO2 POC ABG pO2 ABG pO2 ABG HCO3 ABG O2 Saturation ABG Base Excess ABG Hemoglobin ABG Oxyhemoglobin ABG Sodium ABG Potassium ABG Chloride ABG Glucose Oxyhemoglobin Sodium Potassium Chloride Carbon Dioxide BUN Creatinine Glucose POC Glucose 143 H 164 H 221 H Lactic Acid Calcium Magnesium Ferritin Total Bilirubin Direct Bilirubin AST ALT Alkaline Phosphatase Lactate Dehydrogenase C-Reactive Protein Total Protein Albumin Triglycerides Arterial Blood Glucose Arterial Blood Ionized Calcium Urine WBC (Auto) Coronavirus (PCR) SARS-CoV-2 IgG Ab 05/29/20 05/29/20 05/29/20 04:15 05:33 12:34 WBC RBC Hgb Hct MCV MCH MCHC RDW Lymph % (Auto) Lymph # (Auto) Seg Neutrophils % Seg Neuts % (Manual) Lymphocytes % (Manual) Seg Neutrophils # Seg Neutrophils # Man Lymphocytes # (Manual) D-Dimer ABG pH 7.463 H POC ABG pCO2 56.3 H POC ABG pO2 81.2 L ABG pO2 ABG HCO3 ABG O2 Saturation ABG Base Excess ABG Hemoglobin ABG Oxyhemoglobin ABG Sodium ABG Potassium ABG Chloride 96.0 L ABG Glucose 194 H Oxyhemoglobin Sodium Potassium Chloride Carbon Dioxide BUN Creatinine Glucose POC Glucose 133 H 221 H Lactic Acid Calcium Magnesium Ferritin Total Bilirubin Direct Bilirubin AST ALT Alkaline Phosphatase Lactate Dehydrogenase C-Reactive Protein Total Protein Albumin Triglycerides Arterial Blood Glucose 194 H Arterial Blood Ionized Calcium 4.5 L Urine WBC (Auto) Coronavirus (PCR) SARS-CoV-2 IgG Ab 05/29/20 05/30/20 05/30/20 18:07 00:12 05:38 WBC RBC Hgb Hct MCV MCH MCHC RDW Lymph % (Auto) Lymph # (Auto) Seg Neutrophils % Seg Neuts % (Manual) Lymphocytes % (Manual) Seg Neutrophils # Seg Neutrophils # Man Lymphocytes # (Manual) D-Dimer ABG pH POC ABG pCO2 POC ABG pO2 ABG pO2 ABG HCO3 ABG O2 Saturation ABG Base Excess ABG Hemoglobin ABG Oxyhemoglobin ABG Sodium ABG Potassium ABG Chloride ABG Glucose Oxyhemoglobin Sodium Potassium Chloride Carbon Dioxide BUN Creatinine Glucose POC Glucose 162 H 190 H 208 H Lactic Acid Calcium Magnesium Ferritin Total Bilirubin Direct Bilirubin AST ALT Alkaline Phosphatase Lactate Dehydrogenase C-Reactive Protein Total Protein Albumin Triglycerides Arterial Blood Glucose Arterial Blood Ionized Calcium Urine WBC (Auto) Coronavirus (PCR) SARS-CoV-2 IgG Ab 05/30/20 05/30/20 05/30/20 09:30 11:35 11:54 WBC 12.4 H RBC 3.48 L Hgb 11.3 L Hct 34.6 L MCV 99 H MCH 33 H MCHC RDW Lymph % (Auto) Lymph # (Auto) Seg Neutrophils % Seg Neuts % (Manual) Lymphocytes % (Manual) Seg Neutrophils # Seg Neutrophils # Man Lymphocytes # (Manual) D-Dimer ABG pH 7.455 H POC ABG pCO2 57.5 H POC ABG pO2 81.5 L ABG pO2 ABG HCO3 ABG O2 Saturation ABG Base Excess ABG Hemoglobin ABG Oxyhemoglobin ABG Sodium ABG Potassium ABG Chloride 96.0 L ABG Glucose 204 H Oxyhemoglobin Sodium Potassium Chloride Carbon Dioxide BUN Creatinine Glucose POC Glucose 183 H Lactic Acid Calcium Magnesium Ferritin Total Bilirubin Direct Bilirubin AST ALT Alkaline Phosphatase Lactate Dehydrogenase C-Reactive Protein Total Protein Albumin Triglycerides Arterial Blood Glucose 204 H Arterial Blood Ionized Calcium Urine WBC (Auto) Coronavirus (PCR) SARS-CoV-2 IgG Ab 05/30/20 05/31/20 05/31/20 18:01 00:10 03:22 WBC RBC Hgb Hct MCV MCH MCHC RDW Lymph % (Auto) Lymph # (Auto) Seg Neutrophils % Seg Neuts % (Manual) Lymphocytes % (Manual) Seg Neutrophils # Seg Neutrophils # Man Lymphocytes # (Manual) D-Dimer ABG pH POC ABG pCO2 60.4 H POC ABG pO2 71.5 L ABG pO2 ABG HCO3 ABG O2 Saturation ABG Base Excess ABG Hemoglobin ABG Oxyhemoglobin ABG Sodium ABG Potassium ABG Chloride 96.0 L ABG Glucose 169 H Oxyhemoglobin Sodium Potassium Chloride Carbon Dioxide BUN Creatinine Glucose POC Glucose 184 H 135 H Lactic Acid Calcium Magnesium Ferritin Total Bilirubin Direct Bilirubin AST ALT Alkaline Phosphatase Lactate Dehydrogenase C-Reactive Protein Total Protein Albumin Triglycerides Arterial Blood Glucose 169 H Arterial Blood Ionized Calcium 4.5 L Urine WBC (Auto) Coronavirus (PCR) SARS-CoV-2 IgG Ab 05/31/20 05/31/20 05/31/20 05:24 11:18 14:41 WBC RBC Hgb Hct MCV MCH MCHC RDW Lymph % (Auto) Lymph # (Auto) Seg Neutrophils % Seg Neuts % (Manual) Lymphocytes % (Manual) Seg Neutrophils # Seg Neutrophils # Man Lymphocytes # (Manual) D-Dimer ABG pH POC ABG pCO2 POC ABG pO2 ABG pO2 ABG HCO3 ABG O2 Saturation ABG Base Excess ABG Hemoglobin ABG Oxyhemoglobin ABG Sodium ABG Potassium ABG Chloride ABG Glucose Oxyhemoglobin Sodium Potassium Chloride 96.8 L Carbon Dioxide 37 H BUN 31 H Creatinine 0.6 L Glucose 213 H POC Glucose 164 H 208 H Lactic Acid Calcium Magnesium Ferritin Total Bilirubin Direct Bilirubin AST ALT Alkaline Phosphatase Lactate Dehydrogenase C-Reactive Protein Total Protein Albumin Triglycerides Arterial Blood Glucose Arterial Blood Ionized Calcium Urine WBC (Auto) Coronavirus (PCR) SARS-CoV-2 IgG Ab 05/31/20 05/31/20 06/01/20 17:37 23:47 03:48 WBC RBC Hgb Hct MCV MCH MCHC RDW Lymph % (Auto) Lymph # (Auto) Seg Neutrophils % Seg Neuts % (Manual) Lymphocytes % (Manual) Seg Neutrophils # Seg Neutrophils # Man Lymphocytes # (Manual) D-Dimer ABG pH POC ABG pCO2 59.7 H POC ABG pO2 73.9 L ABG pO2 ABG HCO3 ABG O2 Saturation ABG Base Excess ABG Hemoglobin ABG Oxyhemoglobin ABG Sodium ABG Potassium ABG Chloride 95.0 L ABG Glucose 256 H Oxyhemoglobin Sodium Potassium Chloride Carbon Dioxide BUN Creatinine Glucose POC Glucose 168 H 178 H Lactic Acid Calcium Magnesium Ferritin Total Bilirubin Direct Bilirubin AST ALT Alkaline Phosphatase Lactate Dehydrogenase C-Reactive Protein Total Protein Albumin Triglycerides Arterial Blood Glucose 256 H Arterial Blood Ionized Calcium Urine WBC (Auto) Coronavirus (PCR) SARS-CoV-2 IgG Ab 06/01/20 06/01/20 06/01/20 05:01 07:47 07:47 WBC 14.4 H RBC 3.46 L Hgb 11.1 L Hct 34.3 L MCV 99 H MCH MCHC RDW Lymph % (Auto) Lymph # (Auto) Seg Neutrophils % Seg Neuts % (Manual) 86.0 H Lymphocytes % (Manual) 9.0 L Seg Neutrophils # Seg Neutrophils # Man 12.4 H Lymphocytes # (Manual) D-Dimer ABG pH POC ABG pCO2 POC ABG pO2 ABG pO2 ABG HCO3 ABG O2 Saturation ABG Base Excess ABG Hemoglobin ABG Oxyhemoglobin ABG Sodium ABG Potassium ABG Chloride ABG Glucose Oxyhemoglobin Sodium Potassium Chloride Carbon Dioxide BUN Creatinine Glucose POC Glucose 197 H Lactic Acid Calcium Magnesium Ferritin Total Bilirubin Direct Bilirubin AST ALT Alkaline Phosphatase Lactate Dehydrogenase C-Reactive Protein Total Protein Albumin Triglycerides 244 H Arterial Blood Glucose Arterial Blood Ionized Calcium Urine WBC (Auto) Coronavirus (PCR) SARS-CoV-2 IgG Ab 06/01/20 06/01/20 07:47 11:46 WBC RBC Hgb Hct MCV MCH MCHC RDW Lymph % (Auto) Lymph # (Auto) Seg Neutrophils % Seg Neuts % (Manual) Lymphocytes % (Manual) Seg Neutrophils # Seg Neutrophils # Man Lymphocytes # (Manual) D-Dimer ABG pH POC ABG pCO2 POC ABG pO2 ABG pO2 ABG HCO3 ABG O2 Saturation ABG Base Excess ABG Hemoglobin ABG Oxyhemoglobin ABG Sodium ABG Potassium ABG Chloride ABG Glucose Oxyhemoglobin Sodium Potassium Chloride 95.4 L Carbon Dioxide 35 H BUN 30 H Creatinine 0.5 L Glucose 214 H POC Glucose 181 H Lactic Acid Calcium Magnesium Ferritin Total Bilirubin Direct Bilirubin AST 54 H ALT 235 H Alkaline Phosphatase Lactate Dehydrogenase C-Reactive Protein Total Protein Albumin 2.9 L Triglycerides Arterial Blood Glucose Arterial Blood Ionized Calcium Urine WBC (Auto) Coronavirus (PCR) SARS-CoV-2 IgG Ab Allied health notes reviewed: nursing
[2020-06-01] MEDS ORDERED: MAGNESIUM CITRATE 300 ML ORAL LIQD PO SCH (13:14)
[2020-06-01] MEDS: POLYETHYLENE GLYCOL 3350 17 GM POWDER PO SCH (22:41)
[2020-06-02] MEDS: fentaNYL DRIP Premix 2,000 MCG/100 ML BAG IV SCH ×4 (04:19→18:03)
[2020-06-02 04:39] LABS: ABG Base Excess 15.1 mmol/L (-2.0-3.0); ABG HCO3 41.2 mmol/L (20.0-26.0); ABG Methemoglobin 0.5 % (0.0-1.5); ABG Oxygen Saturation 99.3 % (95.0-99.0); ABG PCO2 58.6 mm Hg; ABG PH 7.465 pH Units (7.350-7.450); ABG PO2 203.4 mm Hg (80.0-90.0)
[2020-06-02] MEDS: INSULIN LISPRO 100 UNIT/ML VIAL 3 mL SUB-Q SCH ×4 (05:53→23:07)
[2020-06-02] MEDS: methylPREDNISolone Sod Succinate 40 MG/1 ML INJ IV SCH ×2 (05:57→18:13)
--- NOTE | 2020-06-02 08:20 | Progress Note ---
Assessment and Plan Acute hypoxemic respiratory failure due to COVID-19 Severe COVID infection Severe Sepsis Bilateral pneumonia Acute kidney injury (SEN) with acute tubular necrosis (ATN)-improving h/o Alcohol dependence Elevated liver function tests probably secondary COVID Continue to wean supplemental oxygen for O2 sats>90% Add Midazolam to sedation Continue to monitor airway pressures - VAP bundle addressed, aspiration precautions HOB >40 - Continue lung protective strategies, permissive hypercapnic acceptable. -Pa/FIO2 ratio acceptable at this time - continue bronchodilators with pulmonary hygiene per RT - wean per pulmonary driven protocols otherwise - accuchecks with glycemic control per SSI (While critically ill target blood glucose of 140-180 mg/dL; avoid hypoglycemia) - sedation prn for target RASS -1 to -2 - continue enteral nutritional support at goal rate as tolerated - Prone positioning as tolerated and indicated - Monitor liver function test , avoid hepatotoxic agents - Avoid nephrotoxins, renally dose all medications, conservative fluid management - continue to avoid benzodiazepines, reduce the possibility of delirium - prn analgesia per CPOT score - Maintenance of sleep-wake cycle, avoid delirium - continue to avoid benzodiazepines, reduce the possibility of delirium - aspiration precautions -Stress ulcer prophylaxis - PT/OT/ROM exercises - continue mobility protocols for pressure ulcer prevention -CXR, ABG as clinically indicated -CBC, BMP as clinically indicated -Supportive transfusions to keep HgB >7g/dL - Monitor hemodynamics closely - continue other care per attending / other consultants COVID SPECIFIC INTERVENTIONS - SARS CoV-2 IgG positive patient is NOT a candidate for COVID convalescent plasma -Completed remdesivir -continue steroids: on Solu-Medrol, wean -Monitor inflammatory markers - ferritin, Ddimer, CRP, LDH every 3 days -Continue anticoagulation per System Protocol based on d-dimer -Continue contact and airborne isolation .... Re-evaluate in am & prn CONDITION: CRITICAL PROGNOSIS: GUARDED CODE STATUS: FULL CODE The high probability of a clinically significant, sudden or life-threatening deterioration of the [respiratory, cardiovascular, hematologic & neurologic] system(s) required my full and direct attention, intervention and personal management. The aggregate critical care time was [32] minutes without overlap. Time includes spent on; [x] Data Review and interpretation [x] Patient assessment and monitoring of vital signs [x] Documentation [x] Medication orders and management Subjective Date of service: 06/02/20 Principal diagnosis: Ac hypoxemic resp failure; COVID-19; Severe Sepsis; Shaggy PNA; Alcohol Abuse Interval history: Patient is seen today for: Acute hypoxemic respiratory failure due to COVID-19; Severe Sepsis; Bilateral pneumonia; Alcohol dependence; Elevated liver function tests Seen and examined at bedside; 24hour events reviewed; nursing and respiratory care staff consulted; no adverse overnight events reported to me; resting in bed; remains on MVS; FiO2 at 45% PEEP +14 , desaturations associated with awakenings and cough. Objective Vital Signs - 12hr 06/01/20 06/01/20 06/01/20 21:01 22:01 22:42 Temperature Pulse Rate 113 H 138 H 108 H Pulse Rate [ From Monitor] Pulse Rate [ Right Dorsalis Pedis] Respiratory 17 21 Rate Blood Pressure 121/70 122/94 132/79 O2 Sat by Pulse 90 88 Oximetry 06/01/20 06/01/20 06/01/20 22:51 22:56 23:00 Temperature Pulse Rate 111 H 120 H Pulse Rate [ 117 H From Monitor] Pulse Rate [ 117 H Right Dorsalis Pedis] Respiratory 19 14 Rate Blood Pressure 111/81 O2 Sat by Pulse 96 99 Oximetry 06/01/20 06/01/20 06/02/20 23:19 23:39 00:00 Temperature 97.6 F Pulse Rate 101 H 99 H 99 H Pulse Rate [ From Monitor] Pulse Rate [ Right Dorsalis Pedis] Respiratory 15 15 Rate Blood Pressure 111/67 105/63 104/51 O2 Sat by Pulse 94 97 98 Oximetry 06/02/20 06/02/20 06/02/20 01:00 02:00 03:00 Temperature Pulse Rate 97 H 96 H 95 H Pulse Rate [ From Monitor] Pulse Rate [ Right Dorsalis Pedis] Respiratory 17 20 20 Rate Blood Pressure 104/55 99/54 100/56 O2 Sat by Pulse 98 98 97 Oximetry 06/02/20 06/02/20 06/02/20 03:40 04:00 05:00 Temperature 98.2 F Pulse Rate 87 91 H 93 H Pulse Rate [ 117 H From Monitor] Pulse Rate [ 117 H Right Dorsalis Pedis] Respiratory 12 24 Rate Blood Pressure 95/57 115/64 115/69 O2 Sat by Pulse 95 94 95 Oximetry 06/02/20 06/02/20 06:00 08:02 Temperature Pulse Rate 115 H 98 H Pulse Rate [ From Monitor] Pulse Rate [ Right Dorsalis Pedis] Respiratory 18 Rate Blood Pressure 115/79 127/70 O2 Sat by Pulse 99 93 Oximetry Constitutional: agitated, appears uncomfortable, other (middle aged obese male without significant ventilator dyssynchrony, diaphoretic) Eyes: non-icteric ENT: oropharynx moist, other (ETT 24 cm CHILO) Neck: supple, no JVD Effort: mildly labored Ascultation: Bilateral: diminished breath sounds, rhonchi Percussion: Bilateral: not dull Cardiovascular: regular rate and rhythm, other (S1,S2) Gastrointestinal: hypoactive bowel sounds, soft, non-tender, non-distended (protuberant) Integumentary: normal Extremities: no cyanosis, no edema, pulses normal, no ischemia or petechiae Neurologic: non-focal exam, pupils equal and round, other (sedated) Psychiatric: other (sedated) CBC and BMP: 06/01/20 07:47 06/04/20 19:01 ABG, PT/INR, D-dimer: ABG ABG pH 7.465 pH Units (7.350-7.450) H 06/02/20 04:00 POC ABG pCO2 59.7 mmHg (32.0-48.0) H 06/01/20 03:48 ABG pCO2 58.6 mm Hg 06/02/20 04:00 POC ABG pO2 73.9 mmHg (83-108) L 06/01/20 03:48 ABG pO2 203.4 mm Hg (80.0-90.0) H 06/02/20 04:00 POC ABG HCO3 38.7 06/01/20 03:48 ABG O2 Saturation 99.3 % (95.0-99.0) H 06/02/20 04:00 PT/INR, D-dimer D-Dimer 1887.82 ng/mlDDU (0-234) H 05/20/20 08:16 Abnormal lab findings: Abnormal Labs 05/09/20 05/09/20 05/09/20 12:59 12:59 12:59 WBC 11.8 H RBC Hgb Hct MCV 96 H MCH 34 H MCHC 35 H RDW Lymph % (Auto) 6.9 L Lymph # (Auto) 0.8 L Seg Neutrophils % 87.5 H Seg Neuts % (Manual) Lymphocytes % (Manual) Seg Neutrophils # 10.3 H Seg Neutrophils # Man Lymphocytes # (Manual) D-Dimer ABG pH POC ABG pCO2 POC ABG pO2 ABG pO2 ABG HCO3 ABG O2 Saturation ABG Base Excess ABG Hemoglobin ABG Oxyhemoglobin ABG Sodium ABG Potassium ABG Chloride ABG Glucose Oxyhemoglobin Sodium 130 L Potassium 3.5 L Chloride 86.4 L Carbon Dioxide BUN 33 H Creatinine 2.3 H Glucose 156 H POC Glucose Lactic Acid Calcium Magnesium Ferritin Total Bilirubin 3.40 H Direct Bilirubin 1.7 H AST 385 H ALT 134 H Alkaline Phosphatase Lactate Dehydrogenase C-Reactive Protein Total Protein Albumin 3.0 L Triglycerides Arterial Blood Glucose Arterial Blood Ionized Calcium Urine WBC (Auto) Coronavirus (PCR) SARS-CoV-2 IgG Ab 05/09/20 05/09/20 05/09/20 12:59 12:59 12:59 WBC RBC Hgb Hct MCV MCH MCHC RDW Lymph % (Auto) Lymph # (Auto) Seg Neutrophils % Seg Neuts % (Manual) Lymphocytes % (Manual) Seg Neutrophils # Seg Neutrophils # Man Lymphocytes # (Manual) D-Dimer 3242.51 H ABG pH POC ABG pCO2 POC ABG pO2 ABG pO2 ABG HCO3 ABG O2 Saturation ABG Base Excess ABG Hemoglobin ABG Oxyhemoglobin ABG Sodium ABG Potassium ABG Chloride ABG Glucose Oxyhemoglobin Sodium Potassium Chloride Carbon Dioxide BUN Creatinine Glucose 158 H POC Glucose Lactic Acid 3.50 H* Calcium Magnesium Ferritin Total Bilirubin Direct Bilirubin AST ALT Alkaline Phosphatase Lactate Dehydrogenase 2166 H C-Reactive Protein 39.00 H Total Protein Albumin Triglycerides Arterial Blood Glucose Arterial Blood Ionized Calcium Urine WBC (Auto) Coronavirus (PCR) SARS-CoV-2 IgG Ab 05/09/20 05/09/20 05/09/20 12:59 14:20 14:20 WBC RBC Hgb Hct MCV MCH MCHC RDW Lymph % (Auto) Lymph # (Auto) Seg Neutrophils % Seg Neuts % (Manual) Lymphocytes % (Manual) Seg Neutrophils # Seg Neutrophils # Man Lymphocytes # (Manual) D-Dimer 2861.78 H ABG pH POC ABG pCO2 POC ABG pO2 ABG pO2 ABG HCO3 ABG O2 Saturation ABG Base Excess ABG Hemoglobin ABG Oxyhemoglobin ABG Sodium ABG Potassium ABG Chloride ABG Glucose Oxyhemoglobin Sodium Potassium Chloride Carbon Dioxide BUN Creatinine Glucose POC Glucose Lactic Acid 2.20 H* Calcium Magnesium Ferritin 89692.0 H Total Bilirubin Direct Bilirubin AST ALT Alkaline Phosphatase Lactate Dehydrogenase C-Reactive Protein Total Protein Albumin Triglycerides Arterial Blood Glucose Arterial Blood Ionized Calcium Urine WBC (Auto) Coronavirus (PCR) SARS-CoV-2 IgG Ab 05/09/20 05/09/20 05/09/20 14:20 14:20 15:56 WBC RBC Hgb Hct MCV MCH MCHC RDW Lymph % (Auto) Lymph # (Auto) Seg Neutrophils % Seg Neuts % (Manual) Lymphocytes % (Manual) Seg Neutrophils # Seg Neutrophils # Man Lymphocytes # (Manual) D-Dimer ABG pH POC ABG pCO2 POC ABG pO2 57.3 L ABG pO2 ABG HCO3 ABG O2 Saturation ABG Base Excess ABG Hemoglobin ABG Oxyhemoglobin 86.3 L ABG Sodium 129.9 L ABG Potassium ABG Chloride ABG Glucose 146 H Oxyhemoglobin Sodium Potassium Chloride Carbon Dioxide BUN Creatinine Glucose 143 H POC Glucose Lactic Acid Calcium Magnesium Ferritin 80512.0 H Total Bilirubin Direct Bilirubin AST ALT Alkaline Phosphatase Lactate Dehydrogenase 1953 H C-Reactive Protein 33.50 H Total Protein Albumin Triglycerides Arterial Blood Glucose 146 H Arterial Blood Ionized Calcium 3.9 L Urine WBC (Auto) Coronavirus (PCR) SARS-CoV-2 IgG Ab 05/10/20 05/10/20 05/10/20 10:32 10:32 18:50 WBC 15.4 H RBC Hgb Hct MCV 97 H MCH 33 H MCHC RDW 13.1 L Lymph % (Auto) Lymph # (Auto) Seg Neutrophils % Seg Neuts % (Manual) 89.0 H Lymphocytes % (Manual) 8.0 L Seg Neutrophils # Seg Neutrophils # Man 13.7 H Lymphocytes # (Manual) D-Dimer ABG pH POC ABG pCO2 POC ABG pO2 ABG pO2 ABG HCO3 ABG O2 Saturation ABG Base Excess ABG Hemoglobin ABG Oxyhemoglobin ABG Sodium ABG Potassium ABG Chloride ABG Glucose Oxyhemoglobin Sodium 136 L Potassium Chloride 97.4 L Carbon Dioxide BUN 37 H Creatinine 1.7 H Glucose 209 H POC Glucose Lactic Acid Calcium Magnesium Ferritin > 2000.0 H Total Bilirubin Direct Bilirubin AST ALT Alkaline Phosphatase Lactate Dehydrogenase C-Reactive Protein Total Protein Albumin Triglycerides Arterial Blood Glucose Arterial Blood Ionized Calcium Urine WBC (Auto) Coronavirus (PCR) SARS-CoV-2 IgG Ab 1105/10/20 05/10/20 18:50 19:00 Unknown WBC RBC Hgb Hct MCV MCH MCHC RDW Lymph % (Auto) Lymph # (Auto) Seg Neutrophils % Seg Neuts % (Manual) Lymphocytes % (Manual) Seg Neutrophils # Seg Neutrophils # Man Lymphocytes # (Manual) D-Dimer > 24402 H ABG pH POC ABG pCO2 POC ABG pO2 ABG pO2 ABG HCO3 ABG O2 Saturation ABG Base Excess ABG Hemoglobin ABG Oxyhemoglobin ABG Sodium ABG Potassium ABG Chloride ABG Glucose Oxyhemoglobin Sodium Potassium Chloride Carbon Dioxide BUN Creatinine Glucose POC Glucose Lactic Acid Calcium Magnesium Ferritin Total Bilirubin Direct Bilirubin AST ALT Alkaline Phosphatase Lactate Dehydrogenase 1879 H C-Reactive Protein 24.80 H Total Protein Albumin Triglycerides Arterial Blood Glucose Arterial Blood Ionized Calcium Urine WBC (Auto) 11.0 H Coronavirus (PCR) SARS-CoV-2 IgG Ab 05/10/20 05/11/20 05/11/20 Unknown 07:30 07:30 WBC RBC Hgb Hct MCV MCH MCHC RDW Lymph % (Auto) Lymph # (Auto) Seg Neutrophils % Seg Neuts % (Manual) Lymphocytes % (Manual) Seg Neutrophils # Seg Neutrophils # Man Lymphocytes # (Manual) D-Dimer > 2000 H ABG pH POC ABG pCO2 POC ABG pO2 ABG pO2 ABG HCO3 ABG O2 Saturation ABG Base Excess ABG Hemoglobin ABG Oxyhemoglobin ABG Sodium ABG Potassium ABG Chloride ABG Glucose Oxyhemoglobin Sodium Potassium Chloride 96.3 L Carbon Dioxide BUN 36 H Creatinine Glucose 161 H POC Glucose Lactic Acid Calcium 8.3 L Magnesium Ferritin Total Bilirubin 1.50 H Direct Bilirubin 0.6 H AST 178 H ALT 111 H Alkaline Phosphatase Lactate Dehydrogenase C-Reactive Protein Total Protein Albumin 3.0 L Triglycerides Arterial Blood Glucose Arterial Blood Ionized Calcium Urine WBC (Auto) Coronavirus (PCR) Positive A SARS-CoV-2 IgG Ab 05/11/20 05/11/20 05/11/20 07:30 07:30 07:30 WBC RBC Hgb Hct MCV MCH MCHC RDW Lymph % (Auto) Lymph # (Auto) Seg Neutrophils % Seg Neuts % (Manual) Lymphocytes % (Manual) Seg Neutrophils # Seg Neutrophils # Man Lymphocytes # (Manual) D-Dimer ABG pH POC ABG pCO2 POC ABG pO2 ABG pO2 ABG HCO3 ABG O2 Saturation ABG Base Excess ABG Hemoglobin ABG Oxyhemoglobin ABG Sodium ABG Potassium ABG Chloride ABG Glucose Oxyhemoglobin Sodium Potassium Chloride Carbon Dioxide BUN Creatinine Glucose POC Glucose Lactic Acid Calcium Magnesium Ferritin 25082.0 H Total Bilirubin Direct Bilirubin AST ALT Alkaline Phosphatase Lactate Dehydrogenase 1523 H C-Reactive Protein 12.90 H Total Protein Albumin Triglycerides Arterial Blood Glucose Arterial Blood Ionized Calcium Urine WBC (Auto) Coronavirus (PCR) SARS-CoV-2 IgG Ab Reactive A 05/13/20 05/13/20 05/15/20 05:20 05:20 08:15 WBC RBC Hgb Hct MCV MCH MCHC RDW Lymph % (Auto) Lymph # (Auto) Seg Neutrophils % Seg Neuts % (Manual) Lymphocytes % (Manual) Seg Neutrophils # Seg Neutrophils # Man Lymphocytes # (Manual) D-Dimer > 74881 H 5318.28 H ABG pH POC ABG pCO2 POC ABG pO2 ABG pO2 ABG HCO3 ABG O2 Saturation ABG Base Excess ABG Hemoglobin ABG Oxyhemoglobin ABG Sodium ABG Potassium ABG Chloride ABG Glucose Oxyhemoglobin Sodium Potassium Chloride Carbon Dioxide 32 H BUN 30 H Creatinine Glucose 156 H POC Glucose Lactic Acid Calcium Magnesium 2.60 H Ferritin Total Bilirubin 1.40 H Direct Bilirubin AST 121 H ALT 119 H Alkaline Phosphatase Lactate Dehydrogenase 957 H C-Reactive Protein 4.00 H Total Protein Albumin 3.0 L Triglycerides Arterial Blood Glucose Arterial Blood Ionized Calcium Urine WBC (Auto) Coronavirus (PCR) SARS-CoV-2 IgG Ab 05/15/20 05/15/20 05/15/20 08:15 08:15 08:15 WBC 12.4 H RBC Hgb Hct MCV 98 H MCH 33 H MCHC RDW Lymph % (Auto) 9.7 L Lymph # (Auto) Seg Neutrophils % 86.8 H Seg Neuts % (Manual) Lymphocytes % (Manual) Seg Neutrophils # 10.8 H Seg Neutrophils # Man Lymphocytes # (Manual) D-Dimer ABG pH POC ABG pCO2 POC ABG pO2 ABG pO2 ABG HCO3 ABG O2 Saturation ABG Base Excess ABG Hemoglobin ABG Oxyhemoglobin ABG Sodium ABG Potassium ABG Chloride ABG Glucose Oxyhemoglobin Sodium Potassium Chloride 94.8 L Carbon Dioxide 32 H BUN 22 H Creatinine Glucose 115 H POC Glucose Lactic Acid Calcium 8.3 L Magnesium Ferritin 2494.0 H Total Bilirubin Direct Bilirubin AST 73 H ALT 121 H Alkaline Phosphatase Lactate Dehydrogenase 835 H C-Reactive Protein 3.40 H Total Protein 6.1 L Albumin 3.0 L Triglycerides Arterial Blood Glucose Arterial Blood Ionized Calcium Urine WBC (Auto) Coronavirus (PCR) SARS-CoV-2 IgG Ab 05/17/20 05/17/20 05/17/20 05:50 05:50 05:50 WBC RBC Hgb Hct MCV MCH MCHC RDW Lymph % (Auto) Lymph # (Auto) Seg Neutrophils % Seg Neuts % (Manual) Lymphocytes % (Manual) Seg Neutrophils # Seg Neutrophils # Man Lymphocytes # (Manual) D-Dimer 2911.42 H ABG pH POC ABG pCO2 POC ABG pO2 ABG pO2 ABG HCO3 ABG O2 Saturation ABG Base Excess ABG Hemoglobin ABG Oxyhemoglobin ABG Sodium ABG Potassium ABG Chloride ABG Glucose Oxyhemoglobin Sodium 136 L Potassium Chloride 96.0 L Carbon Dioxide 34 H BUN 22 H Creatinine Glucose 140 H POC Glucose Lactic Acid Calcium Magnesium Ferritin 2082.0 H Total Bilirubin Direct Bilirubin AST ALT 75 H Alkaline Phosphatase Lactate Dehydrogenase 601 H C-Reactive Protein 2.70 H Total Protein Albumin 2.9 L Triglycerides Arterial Blood Glucose Arterial Blood Ionized Calcium Urine WBC (Auto) Coronavirus (PCR) SARS-CoV-2 IgG Ab 05/17/20 05/18/20 05/20/20 05:50 12:22 08:16 WBC RBC Hgb Hct MCV 98 H MCH 33 H MCHC RDW Lymph % (Auto) 8.0 L Lymph # (Auto) 0.8 L Seg Neutrophils % 89.3 H Seg Neuts % (Manual) Lymphocytes % (Manual) Seg Neutrophils # 8.8 H Seg Neutrophils # Man Lymphocytes # (Manual) D-Dimer 1887.82 H ABG pH POC ABG pCO2 POC ABG pO2 ABG pO2 ABG HCO3 ABG O2 Saturation ABG Base Excess ABG Hemoglobin ABG Oxyhemoglobin ABG Sodium ABG Potassium ABG Chloride ABG Glucose Oxyhemoglobin Sodium Potassium Chloride Carbon Dioxide BUN Creatinine Glucose POC Glucose 178 H Lactic Acid Calcium Magnesium Ferritin Total Bilirubin Direct Bilirubin AST ALT Alkaline Phosphatase Lactate Dehydrogenase C-Reactive Protein Total Protein Albumin Triglycerides Arterial Blood Glucose Arterial Blood Ionized Calcium Urine WBC (Auto) Coronavirus (PCR) SARS-CoV-2 IgG Ab 05/20/20 05/20/20 05/21/20 08:16 08:16 21:10 WBC RBC Hgb Hct MCV MCH MCHC RDW Lymph % (Auto) Lymph # (Auto) Seg Neutrophils % Seg Neuts % (Manual) Lymphocytes % (Manual) Seg Neutrophils # Seg Neutrophils # Man Lymphocytes # (Manual) D-Dimer ABG pH 7.483 H POC ABG pCO2 POC ABG pO2 ABG pO2 50.0 L ABG HCO3 27.0 H ABG O2 Saturation 86.2 L ABG Base Excess 3.7 H ABG Hemoglobin ABG Oxyhemoglobin ABG Sodium ABG Potassium ABG Chloride ABG Glucose Oxyhemoglobin 84.2 L Sodium Potassium Chloride Carbon Dioxide BUN Creatinine Glucose POC Glucose Lactic Acid Calcium Magnesium Ferritin 1960.0 H Total Bilirubin Direct Bilirubin AST ALT Alkaline Phosphatase Lactate Dehydrogenase 705 H C-Reactive Protein 3.10 H Total Protein Albumin Triglycerides Arterial Blood Glucose Arterial Blood Ionized Calcium Urine WBC (Auto) Coronavirus (PCR) SARS-CoV-2 IgG Ab 05/22/20 05/22/20 05/22/20 04:01 07:53 07:53 WBC 19.2 H RBC Hgb Hct MCV 98 H MCH 34 H MCHC RDW Lymph % (Auto) Lymph # (Auto) Seg Neutrophils % Seg Neuts % (Manual) 96.0 H Lymphocytes % (Manual) 1.0 L Seg Neutrophils # Seg Neutrophils # Man 18.4 H Lymphocytes # (Manual) 0.2 L D-Dimer ABG pH POC ABG pCO2 53.8 H POC ABG pO2 125.5 H ABG pO2 ABG HCO3 ABG O2 Saturation ABG Base Excess ABG Hemoglobin ABG Oxyhemoglobin ABG Sodium 131.8 L ABG Potassium 4.8 H ABG Chloride 94.0 L ABG Glucose 163 H Oxyhemoglobin Sodium 131 L Potassium Chloride 93.4 L Carbon Dioxide BUN 40 H Creatinine Glucose 176 H POC Glucose Lactic Acid Calcium Magnesium 2.70 H Ferritin Total Bilirubin 1.80 H Direct Bilirubin AST 45 H ALT 116 H Alkaline Phosphatase 181 H Lactate Dehydrogenase C-Reactive Protein Total Protein Albumin 2.6 L Triglycerides Arterial Blood Glucose 163 H Arterial Blood Ionized Calcium 4.5 L Urine WBC (Auto) Coronavirus (PCR) SARS-CoV-2 IgG Ab 05/23/20 05/24/20 05/24/20 04:17 03:07 04:08 WBC RBC Hgb Hct MCV MCH MCHC RDW Lymph % (Auto) Lymph # (Auto) Seg Neutrophils % Seg Neuts % (Manual) Lymphocytes % (Manual) Seg Neutrophils # Seg Neutrophils # Man Lymphocytes # (Manual) D-Dimer ABG pH 7.328 L POC ABG pCO2 POC ABG pO2 ABG pO2 72.8 L 73.4 L ABG HCO3 31.0 H 34.0 H ABG O2 Saturation 93.5 L ABG Base Excess 3.5 H 7.7 H ABG Hemoglobin 13.3 L 12.1 L ABG Oxyhemoglobin ABG Sodium ABG Potassium ABG Chloride ABG Glucose Oxyhemoglobin 91.5 L 94.3 L Sodium Potassium Chloride Carbon Dioxide BUN Creatinine Glucose POC Glucose 155 H Lactic Acid Calcium Magnesium Ferritin Total Bilirubin Direct Bilirubin AST ALT Alkaline Phosphatase Lactate Dehydrogenase C-Reactive Protein Total Protein Albumin Triglycerides Arterial Blood Glucose Arterial Blood Ionized Calcium Urine WBC (Auto) Coronavirus (PCR) SARS-CoV-2 IgG Ab 05/24/20 05/24/20 05/24/20 09:33 12:21 17:52 WBC RBC Hgb Hct MCV MCH MCHC RDW Lymph % (Auto) Lymph # (Auto) Seg Neutrophils % Seg Neuts % (Manual) Lymphocytes % (Manual) Seg Neutrophils # Seg Neutrophils # Man Lymphocytes # (Manual) D-Dimer ABG pH POC ABG pCO2 POC ABG pO2 ABG pO2 ABG HCO3 ABG O2 Saturation ABG Base Excess ABG Hemoglobin ABG Oxyhemoglobin ABG Sodium ABG Potassium ABG Chloride ABG Glucose Oxyhemoglobin Sodium Potassium Chloride Carbon Dioxide 34 H D BUN 28 H Creatinine 0.7 L Glucose 168 H POC Glucose 173 H 164 H Lactic Acid Calcium Magnesium Ferritin Total Bilirubin Direct Bilirubin AST ALT Alkaline Phosphatase Lactate Dehydrogenase C-Reactive Protein Total Protein Albumin Triglycerides Arterial Blood Glucose Arterial Blood Ionized Calcium Urine WBC (Auto) Coronavirus (PCR) SARS-CoV-2 IgG Ab 05/24/20 05/25/20 05/25/20 23:47 04:29 05:46 WBC RBC Hgb Hct MCV MCH MCHC RDW Lymph % (Auto) Lymph # (Auto) Seg Neutrophils % Seg Neuts % (Manual) Lymphocytes % (Manual) Seg Neutrophils # Seg Neutrophils # Man Lymphocytes # (Manual) D-Dimer ABG pH POC ABG pCO2 68.6 H POC ABG pO2 ABG pO2 ABG HCO3 ABG O2 Saturation ABG Base Excess ABG Hemoglobin ABG Oxyhemoglobin ABG Sodium ABG Potassium 4.7 H ABG Chloride ABG Glucose 226 H Oxyhemoglobin Sodium Potassium Chloride Carbon Dioxide BUN Creatinine Glucose POC Glucose 171 H 201 H Lactic Acid Calcium Magnesium Ferritin Total Bilirubin Direct Bilirubin AST ALT Alkaline Phosphatase Lactate Dehydrogenase C-Reactive Protein Total Protein Albumin Triglycerides Arterial Blood Glucose 226 H Arterial Blood Ionized Calcium Urine WBC (Auto) Coronavirus (PCR) SARS-CoV-2 IgG Ab 05/25/20 05/25/20 05/25/20 08:37 08:37 12:38 WBC 12.0 H RBC 3.64 L Hgb Hct MCV 99 H MCH 33 H MCHC RDW Lymph % (Auto) Lymph # (Auto) Seg Neutrophils % Seg Neuts % (Manual) Lymphocytes % (Manual) Seg Neutrophils # Seg Neutrophils # Man Lymphocytes # (Manual) D-Dimer ABG pH POC ABG pCO2 POC ABG pO2 ABG pO2 ABG HCO3 ABG O2 Saturation ABG Base Excess ABG Hemoglobin ABG Oxyhemoglobin ABG Sodium ABG Potassium ABG Chloride ABG Glucose Oxyhemoglobin Sodium Potassium Chloride 97.3 L Carbon Dioxide 35 H BUN 25 H Creatinine 0.7 L Glucose 191 H POC Glucose 182 H Lactic Acid Calcium Magnesium Ferritin Total Bilirubin Direct Bilirubin AST ALT Alkaline Phosphatase Lactate Dehydrogenase C-Reactive Protein Total Protein Albumin Triglycerides Arterial Blood Glucose Arterial Blood Ionized Calcium Urine WBC (Auto) Coronavirus (PCR) SARS-CoV-2 IgG Ab 05/25/20 05/26/20 05/26/20 18:16 00:06 04:50 WBC RBC Hgb Hct MCV MCH MCHC RDW Lymph % (Auto) Lymph # (Auto) Seg Neutrophils % Seg Neuts % (Manual) Lymphocytes % (Manual) Seg Neutrophils # Seg Neutrophils # Man Lymphocytes # (Manual) D-Dimer ABG pH POC ABG pCO2 POC ABG pO2 ABG pO2 221.5 H ABG HCO3 40.4 H ABG O2 Saturation 99.3 H ABG Base Excess 12.8 H ABG Hemoglobin 10.4 L ABG Oxyhemoglobin ABG Sodium ABG Potassium ABG Chloride ABG Glucose Oxyhemoglobin Sodium Potassium Chloride Carbon Dioxide BUN Creatinine Glucose POC Glucose 176 H 152 H Lactic Acid Calcium Magnesium Ferritin Total Bilirubin Direct Bilirubin AST ALT Alkaline Phosphatase Lactate Dehydrogenase C-Reactive Protein Total Protein Albumin Triglycerides Arterial Blood Glucose Arterial Blood Ionized Calcium Urine WBC (Auto) Coronavirus (PCR) SARS-CoV-2 IgG Ab 05/26/20 05/26/20 05/26/20 06:11 07:51 07:51 WBC 13.4 H RBC 3.64 L Hgb Hct MCV 98 H MCH 33 H MCHC RDW Lymph % (Auto) Lymph # (Auto) Seg Neutrophils % Seg Neuts % (Manual) Lymphocytes % (Manual) Seg Neutrophils # Seg Neutrophils # Man Lymphocytes # (Manual) D-Dimer ABG pH POC ABG pCO2 POC ABG pO2 ABG pO2 ABG HCO3 ABG O2 Saturation ABG Base Excess ABG Hemoglobin ABG Oxyhemoglobin ABG Sodium ABG Potassium ABG Chloride ABG Glucose Oxyhemoglobin Sodium Potassium Chloride 96.6 L Carbon Dioxide 39 H BUN 29 H Creatinine 0.7 L Glucose 174 H POC Glucose 165 H Lactic Acid Calcium Magnesium Ferritin Total Bilirubin Direct Bilirubin AST ALT Alkaline Phosphatase Lactate Dehydrogenase C-Reactive Protein Total Protein Albumin Triglycerides Arterial Blood Glucose Arterial Blood Ionized Calcium Urine WBC (Auto) Coronavirus (PCR) SARS-CoV-2 IgG Ab 05/26/20 05/27/20 05/27/20 23:23 03:43 05:29 WBC RBC Hgb Hct MCV MCH MCHC RDW Lymph % (Auto) Lymph # (Auto) Seg Neutrophils % Seg Neuts % (Manual) Lymphocytes % (Manual) Seg Neutrophils # Seg Neutrophils # Man Lymphocytes # (Manual) D-Dimer ABG pH 7.480 H POC ABG pCO2 52.4 H POC ABG pO2 61.4 L ABG pO2 ABG HCO3 ABG O2 Saturation ABG Base Excess ABG Hemoglobin ABG Oxyhemoglobin ABG Sodium 134.9 L ABG Potassium ABG Chloride 95.0 L ABG Glucose 221 H Oxyhemoglobin Sodium Potassium Chloride Carbon Dioxide BUN Creatinine Glucose POC Glucose 169 H 227 H Lactic Acid Calcium Magnesium Ferritin Total Bilirubin Direct Bilirubin AST ALT Alkaline Phosphatase Lactate Dehydrogenase C-Reactive Protein Total Protein Albumin Triglycerides Arterial Blood Glucose 221 H Arterial Blood Ionized Calcium 4.5 L Urine WBC (Auto) Coronavirus (PCR) SARS-CoV-2 IgG Ab 05/27/20 05/27/20 05/27/20 07:19 12:18 13:50 WBC RBC Hgb Hct MCV MCH MCHC RDW Lymph % (Auto) Lymph # (Auto) Seg Neutrophils % Seg Neuts % (Manual) Lymphocytes % (Manual) Seg Neutrophils # Seg Neutrophils # Man Lymphocytes # (Manual) D-Dimer ABG pH POC ABG pCO2 POC ABG pO2 ABG pO2 ABG HCO3 ABG O2 Saturation ABG Base Excess ABG Hemoglobin ABG Oxyhemoglobin ABG Sodium ABG Potassium ABG Chloride ABG Glucose Oxyhemoglobin Sodium Potassium Chloride Carbon Dioxide BUN Creatinine Glucose POC Glucose 114 H 148 H Lactic Acid Calcium Magnesium Ferritin Total Bilirubin Direct Bilirubin AST ALT Alkaline Phosphatase Lactate Dehydrogenase C-Reactive Protein Total Protein Albumin Triglycerides 247 H Arterial Blood Glucose Arterial Blood Ionized Calcium Urine WBC (Auto) Coronavirus (PCR) SARS-CoV-2 IgG Ab 05/28/20 05/28/20 05/28/20 00:13 04:16 05:22 WBC RBC Hgb Hct MCV MCH MCHC RDW Lymph % (Auto) Lymph # (Auto) Seg Neutrophils % Seg Neuts % (Manual) Lymphocytes % (Manual) Seg Neutrophils # Seg Neutrophils # Man Lymphocytes # (Manual) D-Dimer ABG pH POC ABG pCO2 64.4 H POC ABG pO2 60.5 L ABG pO2 ABG HCO3 ABG O2 Saturation ABG Base Excess ABG Hemoglobin ABG Oxyhemoglobin ABG Sodium ABG Potassium ABG Chloride 95.0 L ABG Glucose 209 H Oxyhemoglobin Sodium Potassium Chloride Carbon Dioxide BUN Creatinine Glucose POC Glucose 155 H 186 H Lactic Acid Calcium Magnesium Ferritin Total Bilirubin Direct Bilirubin AST ALT Alkaline Phosphatase Lactate Dehydrogenase C-Reactive Protein Total Protein Albumin Triglycerides Arterial Blood Glucose 209 H Arterial Blood Ionized Calcium Urine WBC (Auto) Coronavirus (PCR) SARS-CoV-2 IgG Ab 05/28/20 05/28/20 05/29/20 12:45 17:39 00:37 WBC RBC Hgb Hct MCV MCH MCHC RDW Lymph % (Auto) Lymph # (Auto) Seg Neutrophils % Seg Neuts % (Manual) Lymphocytes % (Manual) Seg Neutrophils # Seg Neutrophils # Man Lymphocytes # (Manual) D-Dimer ABG pH POC ABG pCO2 POC ABG pO2 ABG pO2 ABG HCO3 ABG O2 Saturation ABG Base Excess ABG Hemoglobin ABG Oxyhemoglobin ABG Sodium ABG Potassium ABG Chloride ABG Glucose Oxyhemoglobin Sodium Potassium Chloride Carbon Dioxide BUN Creatinine Glucose POC Glucose 143 H 164 H 221 H Lactic Acid Calcium Magnesium Ferritin Total Bilirubin Direct Bilirubin AST ALT Alkaline Phosphatase Lactate Dehydrogenase C-Reactive Protein Total Protein Albumin Triglycerides Arterial Blood Glucose Arterial Blood Ionized Calcium Urine WBC (Auto) Coronavirus (PCR) SARS-CoV-2 IgG Ab 05/29/20 05/29/20 05/29/20 04:15 05:33 12:34 WBC RBC Hgb Hct MCV MCH MCHC RDW Lymph % (Auto) Lymph # (Auto) Seg Neutrophils % Seg Neuts % (Manual) Lymphocytes % (Manual) Seg Neutrophils # Seg Neutrophils # Man Lymphocytes # (Manual) D-Dimer ABG pH 7.463 H POC ABG pCO2 56.3 H POC ABG pO2 81.2 L ABG pO2 ABG HCO3 ABG O2 Saturation ABG Base Excess ABG Hemoglobin ABG Oxyhemoglobin ABG Sodium ABG Potassium ABG Chloride 96.0 L ABG Glucose 194 H Oxyhemoglobin Sodium Potassium Chloride Carbon Dioxide BUN Creatinine Glucose POC Glucose 133 H 221 H Lactic Acid Calcium Magnesium Ferritin Total Bilirubin Direct Bilirubin AST ALT Alkaline Phosphatase Lactate Dehydrogenase C-Reactive Protein Total Protein Albumin Triglycerides Arterial Blood Glucose 194 H Arterial Blood Ionized Calcium 4.5 L Urine WBC (Auto) Coronavirus (PCR) SARS-CoV-2 IgG Ab 05/29/20 05/30/20 05/30/20 18:07 00:12 05:38 WBC RBC Hgb Hct MCV MCH MCHC RDW Lymph % (Auto) Lymph # (Auto) Seg Neutrophils % Seg Neuts % (Manual) Lymphocytes % (Manual) Seg Neutrophils # Seg Neutrophils # Man Lymphocytes # (Manual) D-Dimer ABG pH POC ABG pCO2 POC ABG pO2 ABG pO2 ABG HCO3 ABG O2 Saturation ABG Base Excess ABG Hemoglobin ABG Oxyhemoglobin ABG Sodium ABG Potassium ABG Chloride ABG Glucose Oxyhemoglobin Sodium Potassium Chloride Carbon Dioxide BUN Creatinine Glucose POC Glucose 162 H 190 H 208 H Lactic Acid Calcium Magnesium Ferritin Total Bilirubin Direct Bilirubin AST ALT Alkaline Phosphatase Lactate Dehydrogenase C-Reactive Protein Total Protein Albumin Triglycerides Arterial Blood Glucose Arterial Blood Ionized Calcium Urine WBC (Auto) Coronavirus (PCR) SARS-CoV-2 IgG Ab 05/30/20 05/30/20 05/30/20 09:30 11:35 11:54 WBC 12.4 H RBC 3.48 L Hgb 11.3 L Hct 34.6 L MCV 99 H MCH 33 H MCHC RDW Lymph % (Auto) Lymph # (Auto) Seg Neutrophils % Seg Neuts % (Manual) Lymphocytes % (Manual) Seg Neutrophils # Seg Neutrophils # Man Lymphocytes # (Manual) D-Dimer ABG pH 7.455 H POC ABG pCO2 57.5 H POC ABG pO2 81.5 L ABG pO2 ABG HCO3 ABG O2 Saturation ABG Base Excess ABG Hemoglobin ABG Oxyhemoglobin ABG Sodium ABG Potassium ABG Chloride 96.0 L ABG Glucose 204 H Oxyhemoglobin Sodium Potassium Chloride Carbon Dioxide BUN Creatinine Glucose POC Glucose 183 H Lactic Acid Calcium Magnesium Ferritin Total Bilirubin Direct Bilirubin AST ALT Alkaline Phosphatase Lactate Dehydrogenase C-Reactive Protein Total Protein Albumin Triglycerides Arterial Blood Glucose 204 H Arterial Blood Ionized Calcium Urine WBC (Auto) Coronavirus (PCR) SARS-CoV-2 IgG Ab 05/30/20 05/31/20 05/31/20 18:01 00:10 03:22 WBC RBC Hgb Hct MCV MCH MCHC RDW Lymph % (Auto) Lymph # (Auto) Seg Neutrophils % Seg Neuts % (Manual) Lymphocytes % (Manual) Seg Neutrophils # Seg Neutrophils # Man Lymphocytes # (Manual) D-Dimer ABG pH POC ABG pCO2 60.4 H POC ABG pO2 71.5 L ABG pO2 ABG HCO3 ABG O2 Saturation ABG Base Excess ABG Hemoglobin ABG Oxyhemoglobin ABG Sodium ABG Potassium ABG Chloride 96.0 L ABG Glucose 169 H Oxyhemoglobin Sodium Potassium Chloride Carbon Dioxide BUN Creatinine Glucose POC Glucose 184 H 135 H Lactic Acid Calcium Magnesium Ferritin Total Bilirubin Direct Bilirubin AST ALT Alkaline Phosphatase Lactate Dehydrogenase C-Reactive Protein Total Protein Albumin Triglycerides Arterial Blood Glucose 169 H Arterial Blood Ionized Calcium 4.5 L Urine WBC (Auto) Coronavirus (PCR) SARS-CoV-2 IgG Ab 05/31/20 05/31/20 05/31/20 05:24 11:18 14:41 WBC RBC Hgb Hct MCV MCH MCHC RDW Lymph % (Auto) Lymph # (Auto) Seg Neutrophils % Seg Neuts % (Manual) Lymphocytes % (Manual) Seg Neutrophils # Seg Neutrophils # Man Lymphocytes # (Manual) D-Dimer ABG pH POC ABG pCO2 POC ABG pO2 ABG pO2 ABG HCO3 ABG O2 Saturation ABG Base Excess ABG Hemoglobin ABG Oxyhemoglobin ABG Sodium ABG Potassium ABG Chloride ABG Glucose Oxyhemoglobin Sodium Potassium Chloride 96.8 L Carbon Dioxide 37 H BUN 31 H Creatinine 0.6 L Glucose 213 H POC Glucose 164 H 208 H Lactic Acid Calcium Magnesium Ferritin Total Bilirubin Direct Bilirubin AST ALT Alkaline Phosphatase Lactate Dehydrogenase C-Reactive Protein Total Protein Albumin Triglycerides Arterial Blood Glucose Arterial Blood Ionized Calcium Urine WBC (Auto) Coronavirus (PCR) SARS-CoV-2 IgG Ab 05/31/20 05/31/20 06/01/20 17:37 23:47 03:48 WBC RBC Hgb Hct MCV MCH MCHC RDW Lymph % (Auto) Lymph # (Auto) Seg Neutrophils % Seg Neuts % (Manual) Lymphocytes % (Manual) Seg Neutrophils # Seg Neutrophils # Man Lymphocytes # (Manual) D-Dimer ABG pH POC ABG pCO2 59.7 H POC ABG pO2 73.9 L ABG pO2 ABG HCO3 ABG O2 Saturation ABG Base Excess ABG Hemoglobin ABG Oxyhemoglobin ABG Sodium ABG Potassium ABG Chloride 95.0 L ABG Glucose 256 H Oxyhemoglobin Sodium Potassium Chloride Carbon Dioxide BUN Creatinine Glucose POC Glucose 168 H 178 H Lactic Acid Calcium Magnesium Ferritin Total Bilirubin Direct Bilirubin AST ALT Alkaline Phosphatase Lactate Dehydrogenase C-Reactive Protein Total Protein Albumin Triglycerides Arterial Blood Glucose 256 H Arterial Blood Ionized Calcium Urine WBC (Auto) Coronavirus (PCR) SARS-CoV-2 IgG Ab 06/01/20 06/01/20 06/01/20 05:01 07:47 07:47 WBC 14.4 H RBC 3.46 L Hgb 11.1 L Hct 34.3 L MCV 99 H MCH MCHC RDW Lymph % (Auto) Lymph # (Auto) Seg Neutrophils % Seg Neuts % (Manual) 86.0 H Lymphocytes % (Manual) 9.0 L Seg Neutrophils # Seg Neutrophils # Man 12.4 H Lymphocytes # (Manual) D-Dimer ABG pH POC ABG pCO2 POC ABG pO2 ABG pO2 ABG HCO3 ABG O2 Saturation ABG Base Excess ABG Hemoglobin ABG Oxyhemoglobin ABG Sodium ABG Potassium ABG Chloride ABG Glucose Oxyhemoglobin Sodium Potassium Chloride Carbon Dioxide BUN Creatinine Glucose POC Glucose 197 H Lactic Acid Calcium Magnesium Ferritin Total Bilirubin Direct Bilirubin AST ALT Alkaline Phosphatase Lactate Dehydrogenase C-Reactive Protein Total Protein Albumin Triglycerides 244 H Arterial Blood Glucose Arterial Blood Ionized Calcium Urine WBC (Auto) Coronavirus (PCR) SARS-CoV-2 IgG Ab 06/01/20 06/01/20 06/01/20 07:47 11:46 18:15 WBC RBC Hgb Hct MCV MCH MCHC RDW Lymph % (Auto) Lymph # (Auto) Seg Neutrophils % Seg Neuts % (Manual) Lymphocytes % (Manual) Seg Neutrophils # Seg Neutrophils # Man Lymphocytes # (Manual) D-Dimer ABG pH POC ABG pCO2 POC ABG pO2 ABG pO2 ABG HCO3 ABG O2 Saturation ABG Base Excess ABG Hemoglobin ABG Oxyhemoglobin ABG Sodium ABG Potassium ABG Chloride ABG Glucose Oxyhemoglobin Sodium Potassium Chloride 95.4 L Carbon Dioxide 35 H BUN 30 H Creatinine 0.5 L Glucose 214 H POC Glucose 181 H 221 H Lactic Acid Calcium Magnesium Ferritin Total Bilirubin Direct Bilirubin AST 54 H ALT 235 H Alkaline Phosphatase Lactate Dehydrogenase C-Reactive Protein Total Protein Albumin 2.9 L Triglycerides Arterial Blood Glucose Arterial Blood Ionized Calcium Urine WBC (Auto) Coronavirus (PCR) SARS-CoV-2 IgG Ab 06/01/20 06/02/20 06/02/20 23:12 04:00 05:31 WBC RBC Hgb Hct MCV MCH MCHC RDW Lymph % (Auto) Lymph # (Auto) Seg Neutrophils % Seg Neuts % (Manual) Lymphocytes % (Manual) Seg Neutrophils # Seg Neutrophils # Man Lymphocytes # (Manual) D-Dimer ABG pH 7.465 H POC ABG pCO2 POC ABG pO2 ABG pO2 203.4 H ABG HCO3 41.2 H ABG O2 Saturation 99.3 H ABG Base Excess 15.1 H ABG Hemoglobin 11.5 L ABG Oxyhemoglobin ABG Sodium ABG Potassium ABG Chloride ABG Glucose Oxyhemoglobin Sodium Potassium Chloride Carbon Dioxide BUN Creatinine Glucose POC Glucose 197 H 184 H Lactic Acid Calcium Magnesium Ferritin Total Bilirubin Direct Bilirubin AST ALT Alkaline Phosphatase Lactate Dehydrogenase C-Reactive Protein Total Protein Albumin Triglycerides Arterial Blood Glucose Arterial Blood Ionized Calcium Urine WBC (Auto) Coronavirus (PCR) SARS-CoV-2 IgG Ab Chest x-ray: image reviewed Allied health notes reviewed: RT
[2020-06-02] MEDS: FOLIC ACID 1 MG TAB PO SCH (08:59)
[2020-06-02] MEDS: FAMOTIDINE 20 MG TAB PO SCH ×2 (08:59→21:30)
[2020-06-02] MEDS: DOCUSATE SODIUM 100 MG/10 ML ORAL LIQD PO SCH ×2 (08:59→21:30)
[2020-06-02] MEDS: METOPROLOL TARTRATE 25 MG TAB PO SCH ×2 (08:59→21:30)
[2020-06-02] MEDS: ENOXAPARIN 120 MG/0.8 ML INJ SUB-Q SCH ×2 (09:00→21:29)
[2020-06-02] MEDS: MIDAZOLAM 2 MG/2 ML INJ IV PRN (13:21)
[2020-06-02] MEDS: MIDAZOLAM 100 MG in SODIUM CHLORIDE 0.9% 80 ML IV SCH (13:44)
[2020-06-02] MEDS ORDERED: MAGNESIUM CITRATE 300 ML ORAL LIQD PO SCH (14:00)
[2020-06-02] MEDS: POLYETHYLENE GLYCOL 3350 17 GM POWDER PO SCH (21:30)
[2020-06-03] MEDS: fentaNYL DRIP Premix 2,000 MCG/100 ML BAG IV SCH ×5 (03:10→23:03)
[2020-06-03 04:19] LABS: ABG Base Excess 15.6 mmol/L (-2.0-3.0); ABG HCO3 42.8 mmol/L (20.0-26.0); ABG Methemoglobin 0.6 % (0.0-1.5); ABG PCO2 65.6 mm Hg; ABG PH 7.433 pH Units (7.350-7.450)
[2020-06-03] MEDS: INSULIN LISPRO 100 UNIT/ML VIAL 3 mL SUB-Q SCH ×3 (05:22→17:27)
[2020-06-03] MEDS: methylPREDNISolone Sod Succinate 40 MG/1 ML INJ IV SCH ×2 (05:22→17:23)
--- NOTE | 2020-06-03 08:59 | Progress Note ---
Assessment and Plan Assessment and Plan Patient intubated last night because of persistent hypoxia --Elevated D-dimers; on full dose anticoagulation However ID requested to get CTA chest, patient is unstable to go for CT As he is requiring high flow oxygen. -- Acute hypoxemic respiratory failure; Patient intubated and on vent support --Elevated D-dimers; check CTA to rule out PE Lower extremity venous Doppler to rule out DVT Patient is already on full dose anticoagulation per COVID-19 protocol -- Novel coronavirus infection with Bilateral pneumonia Coronavirus protocol: IV steroid therapy, IV remdesivir, isolation precautions, contact precautions, prone positioning while in bed, pulmonary toilet. consulted ID --Severe sepsis, due to COVID 19 PNA cont to treat for COVID -- Acute kidney injury (SEN) , likely vasomotor nephropathy Resolved, IV fluids, avoid nephrotoxins -- Alcohol dependence; no episodes of withdrawal symptoms Thiamine, folic acid, multivitamin, CIWA protocol. -- Elevated liver function tests Suspected secondary to alcoholic liver disease. Supportive care, alcohol cessation, patient counseled. -- DVT prophylaxis prophylactic AC with lovenox for elevated D-dimer We will closely monitor patient and adjust management as needed Patient has severe Covid pneumonia, severe hypoxia Critically ill very poor prognosis Full CODE STATUS The high probability of a clinically significant, sudden or life threatening deterioration of the [Covid pneumonia, ID, respiratory, liver] system(s) required my full and direct attention, intervention and personal management. The aggregate critical care time was [32] minutes. This time is in addition to time spent performing reported procedures but includes the following: [x] Data Review and interpretation [x] Patient assessment and monitoring of vital signs [x] Documentation [x] Medication orders and management. Subjective Date of service: 06/02/20 Principal diagnosis: Ac hypoxemic resp failure; COVID-19; Severe Sepsis; Shaggy PNA; Alcohol Abuse Interval history: Brief history; 50 YO Male with Obesity, ETOH Dependence presents to ED for evaluation for shortness of breath, generalized weakness, fatigue, malaise, body aches, decreased exercise tolerance over the past 5 days. EMS was notified and upon arrival the patient was found to be in distress with a pulse oximetry of 76% on room air as well as fever to 103 F. In the ER chest x-ray and was found to have bilateral pneumonia. Patient admitted to medical floor and initiated on pneumonia protocol as well as COVID-19 protocol. Patient severe Covid pneumonia, with persistent severe hypoxemia requiring very high flow oxygen Today on continuous BiPAP, patient is in mild distress, critically ill with very poor prognosis. Patient was on high flow oxygen but could not be maintained above 90 hence patient intubated last night electively 05/17/2020; patient with severe COVID-19 pneumonia, in isolation room Patient is on high flow oxygen, and BiPAP 05/18/20; patient feels slightly better still hypoxic, requiring continuous high flow oxygen and BiPAP Respiratory team trying to wean 05/19/20; patient is severely hypoxemic requiring continuous BiPAP today, complains of generalized weakness Trying to wean off high flow oxygen, patient is in isolation 05/20/2020; patient remains on high flow oxygen/BiPAP/100% nonrebreather. Still is hypoxemic Has sinus tachycardia patient in mild distress Wean off high flow oxygen as tolerated, pulmonary critical following 05/21/20; patient is critically ill, on continuous BiPAP remains hypoxemic in mild distress Patient has severe Covid Pneumonia with persistent hypoxemia and poor prognosis 05/22/2020 Patient was intubated last night because of persistent hypoxemia Objective - Constitutional Vitals: Vital Signs - 12hr 06/02/20 06/02/20 06/02/20 21:00 21:30 21:39 Temperature Pulse Rate 101 H 104 H 104 H Pulse Rate [ From Monitor] Pulse Rate [ Right Dorsalis Pedis] Respiratory 17 12 Rate Blood Pressure 107/64 110/59 99/59 O2 Sat by Pulse 98 98 Oximetry 06/02/20 06/02/20 06/02/20 22:00 23:01 23:50 Temperature 98.4 F Pulse Rate 122 H 109 H Pulse Rate [ From Monitor] Pulse Rate [ Right Dorsalis Pedis] Respiratory 20 24 Rate Blood Pressure 112/80 149/84 O2 Sat by Pulse 93 95 Oximetry 06/02/20 06/03/20 06/03/20 23:52 00:00 01:00 Temperature 98.4 F Pulse Rate 140 H 98 H 115 H Pulse Rate [ 98 H From Monitor] Pulse Rate [ 98 H Right Dorsalis Pedis] Respiratory 21 12 Rate Blood Pressure 128/74 127/82 89/62 O2 Sat by Pulse 96 94 98 Oximetry 06/03/20 06/03/20 06/03/20 02:00 03:00 04:00 Temperature 98.6 F Pulse Rate 110 H 103 H 101 H Pulse Rate [ 100 H From Monitor] Pulse Rate [ 100 H Right Dorsalis Pedis] Respiratory 14 16 20 Rate Blood Pressure 96/64 99/63 98/64 O2 Sat by Pulse 98 98 98 Oximetry 06/03/20 06/03/20 06/03/20 04:19 05:00 06:00 Temperature Pulse Rate 102 H 101 H 106 H Pulse Rate [ From Monitor] Pulse Rate [ Right Dorsalis Pedis] Respiratory 19 17 Rate Blood Pressure 109/65 107/62 104/77 O2 Sat by Pulse 98 95 93 Oximetry 06/03/20 06/03/20 06/03/20 07:00 08:00 08:33 Temperature 98.7 F Pulse Rate 113 H 107 H 117 H Pulse Rate [ From Monitor] Pulse Rate [ Right Dorsalis Pedis] Respiratory 18 20 Rate Blood Pressure 124/82 117/80 123/75 O2 Sat by Pulse 88 93 98 Oximetry General appearance: Present: no acute distress, well-nourished - EENT Eyes: PERRL, EOM intact ENT: hearing intact, clear oral mucosa Ears: bilateral: normal - Neck Neck: supple, normal ROM - Respiratory Respiratory effort: normal Respiratory: bilateral: CTA - Breasts Breasts: normal - Cardiovascular Rhythm: regular Heart Sounds: Present: S1 & S2. Absent: gallop, rub Extremities: pulses intact, No edema, normal color, Full ROM - Gastrointestinal General gastrointestinal: Present: soft, non-tender, non-distended, normal bowel sounds - Genitourinary Male genitourinary: normal - Integumentary Integumentary: clear, warm, dry - Musculoskeletal Musculoskeletal: 1, strength equal bilaterally - Neurologic Neurologic: moves all extremities - Psychiatric Psychiatric: memory intact, appropriate mood/affect, intact judgment & insight - Labs CBC & Chem 7: 06/01/20 07:47 06/01/20 07:47 Labs: Abnormal lab results 06/02/20 06/02/20 06/02/20 Range/Units 11:49 18:06 23:00 ABG pO2 (80.0-90.0) mm Hg ABG HCO3 (20.0-26.0) mmol/L ABG Base Excess (-2.0-3.0) mmol/L ABG Hemoglobin (14.0-18.0) gm/dl POC Glucose 195 H 177 H 228 H (70-105) mg/dL 06/03/20 06/03/20 Range/Units 03:58 05:19 ABG pO2 171.0 H (80.0-90.0) mm Hg ABG HCO3 42.8 H (20.0-26.0) mmol/L ABG Base Excess 15.6 H (-2.0-3.0) mmol/L ABG Hemoglobin 12.3 L (14.0-18.0) gm/dl POC Glucose 122 H (70-105) mg/dL
[2020-06-03] MEDS: FAMOTIDINE 20 MG TAB PO SCH ×2 (09:12→21:04)
[2020-06-03] MEDS: ENOXAPARIN 120 MG/0.8 ML INJ SUB-Q SCH ×2 (09:12→21:04)
[2020-06-03] MEDS: FOLIC ACID 1 MG TAB PO SCH (09:12)
[2020-06-03] MEDS: DOCUSATE SODIUM 100 MG/10 ML ORAL LIQD PO SCH ×2 (09:12→21:04)
[2020-06-03] MEDS: METOPROLOL TARTRATE 25 MG TAB PO SCH ×2 (09:13→21:05)
--- NOTE | 2020-06-03 10:01 | Progress Note ---
Assessment and Plan Acute hypoxemic respiratory failure due to COVID-19 Severe Sepsis Bilateral pneumonia Acute kidney injury (SEN) with acute tubular necrosis (ATN) Alcohol dependence Elevated liver function tests - repeat Mag Citrate 300 ml's p.o. X 1 - continue bowel regimen otherwise - continue to wean supplemental oxygen for target O2 sat's > 92% acutely - keep peep at 12 for now - continue care as below otherwise; - continue Daily SAT and SBT assessment as tolerated - VAP bundle addressed - continue lung protective strategies - continue bronchodilators with pulmonary hygiene per RT - wean per pulmonary driven protocols otherwise - accuchecks with glycemic control per SSI (While critically ill target blood glucose of 140-180 mg/dL; avoid hypoglycemia) - sedation prn for target RASS -1 to -2 - continue enteral nutritional support at goal rate as tolerated - continue airborne and contact isolation - follow repeat COVID-19 testing - continue Zinc & Vit C supplementaion - continue systemic steroids for Asthma / severe COVID infection - Prone positioning as tolerated - continue empiric full dose anticoagulation re: elevated d-dimers / hypercoagulable state - NOT a candidate for COVID convalescent plasma - continue systemic steroids X >/= 10 days - complete remdesivir dosing (total 5 days) - Monitor liver function test on Remdesivir - trend inflammatory markers - ferritin, Ddimer, CRP, LDH; to aid clinical decision making - empiric AB's coverage per ID rec's otherwise - accuchecks with glycemic control per SSI (While critically ill target blood glucose of 140-180 mg/dL; avoid hypoglycemia) - avoid nephrotoxins, renally dose all medications - continue to avoid benzodiazepine's, reduce the possibility of delirium - prn analgesia per CPOT score - Maintenance of sleep-wake cycle, avoid delirium - continue to avoid benzodiazepine's, reduce the possibility of delirium - aspiration precautions - G.I. & VTE prophylaxis - PT/OT/ROM exercises - continue mobility protocols for pressure ulcer prophylaxis - Monitor hemodynamics closely - continue other care per attending / other consultants - discharge planning ongoing concurrently .... Re-evaluate in am & prn CONDITION: CRITICAL PROGNOSIS: GUARDED CODE STATUS: FULL CODE The high probability of a clinically significant, sudden or life-threatening deterioration of the [respiratory, cardiovascular, hematologic & neurologic] system(s) required my full and direct attention, intervention and personal management. The aggregate critical care time was [36] minutes without overlap. Time includes spent on; [x] Data Review and interpretation [x] Patient assessment and monitoring of vital signs [x] Documentation [x] Medication orders and management Subjective Date of service: 06/03/20 Principal diagnosis: Ac hypoxemic resp failure; COVID-19; Severe Sepsis; Shaggy PNA; Alcohol Abuse Interval history: Patient is seen today for: Acute hypoxemic respiratory failure due to COVID-19; Severe Sepsis; Bilateral pneumonia; Alcohol dependence; Elevated liver function tests Seen and examined at bedside; 24hour events reviewed; nursing and respiratory care staff consulted; no adverse overnight events reported to me; resting in bed; remains on MVS; still working on BM; no emesis or overt aspiration; no high grade fevers; oxygenation still labile and on 55% FiO2 with high peep Objective Vital Signs - 12hr 06/02/20 06/02/20 06/02/20 23:01 23:50 23:52 Temperature 98.4 F Pulse Rate 109 H 140 H Pulse Rate [ From Monitor] Pulse Rate [ Right Dorsalis Pedis] Respiratory 24 Rate Blood Pressure 149/84 128/74 O2 Sat by Pulse 95 96 Oximetry 06/03/20 06/03/20 06/03/20 00:00 01:00 02:00 Temperature 98.4 F Pulse Rate 98 H 115 H 110 H Pulse Rate [ 98 H From Monitor] Pulse Rate [ 98 H Right Dorsalis Pedis] Respiratory 21 12 14 Rate Blood Pressure 127/82 89/62 96/64 O2 Sat by Pulse 94 98 98 Oximetry 06/03/20 06/03/20 06/03/20 03:00 04:00 04:19 Temperature 98.6 F Pulse Rate 103 H 101 H 102 H Pulse Rate [ 100 H From Monitor] Pulse Rate [ 100 H Right Dorsalis Pedis] Respiratory 16 20 Rate Blood Pressure 99/63 98/64 109/65 O2 Sat by Pulse 98 98 98 Oximetry 06/03/20 06/03/20 06/03/20 05:00 06:00 07:00 Temperature Pulse Rate 101 H 106 H 113 H Pulse Rate [ From Monitor] Pulse Rate [ Right Dorsalis Pedis] Respiratory 19 17 18 Rate Blood Pressure 107/62 104/77 124/82 O2 Sat by Pulse 95 93 88 Oximetry 06/03/20 06/03/20 06/03/20 08:00 08:33 09:13 Temperature 98.7 F Pulse Rate 107 H 117 H 108 H Pulse Rate [ 107 H From Monitor] Pulse Rate [ 107 H Right Dorsalis Pedis] Respiratory 20 Rate Blood Pressure 117/80 123/75 115/76 O2 Sat by Pulse 93 98 Oximetry Constitutional: no acute distress, asleep, other (middle aged obese male without significant ventilator dyssynchrony) Eyes: non-icteric ENT: oropharynx moist, other (ETT 24 cm CHILO) Neck: supple, no JVD Effort: mildly labored Ascultation: Bilateral: diminished breath sounds, rhonchi Percussion: Bilateral: not dull Cardiovascular: regular rate and rhythm Gastrointestinal: hypoactive bowel sounds, soft, non-tender, non-distended (protuberant) Integumentary: normal Extremities: no cyanosis, no edema, pulses normal, no ischemia or petechiae Neurologic: non-focal exam, pupils equal and round, CN II-XII normal, motor strength normal and, other (sedated) Psychiatric: other (sedated) CBC and BMP: 06/07/20 14:58 06/07/20 14:58 ABG, PT/INR, D-dimer: ABG ABG pH 7.433 pH Units (7.350-7.450) 06/03/20 03:58 POC ABG pCO2 59.7 mmHg (32.0-48.0) H 06/01/20 03:48 ABG pCO2 65.6 mm Hg 06/03/20 03:58 POC ABG pO2 73.9 mmHg (83-108) L 06/01/20 03:48 ABG pO2 171.0 mm Hg (80.0-90.0) H 06/03/20 03:58 POC ABG HCO3 38.7 06/01/20 03:48 ABG O2 Saturation 99.0 % (95.0-99.0) 06/03/20 03:58 PT/INR, D-dimer D-Dimer 1887.82 ng/mlDDU (0-234) H 05/20/20 08:16 Abnormal lab findings: Abnormal Labs 05/09/20 05/09/20 05/09/20 12:59 12:59 12:59 WBC 11.8 H RBC Hgb Hct MCV 96 H MCH 34 H MCHC 35 H RDW Lymph % (Auto) 6.9 L Lymph # (Auto) 0.8 L Seg Neutrophils % 87.5 H Seg Neuts % (Manual) Lymphocytes % (Manual) Seg Neutrophils # 10.3 H Seg Neutrophils # Man Lymphocytes # (Manual) D-Dimer ABG pH POC ABG pCO2 POC ABG pO2 ABG pO2 ABG HCO3 ABG O2 Saturation ABG Base Excess ABG Hemoglobin ABG Oxyhemoglobin ABG Sodium ABG Potassium ABG Chloride ABG Glucose Oxyhemoglobin Sodium 130 L Potassium 3.5 L Chloride 86.4 L Carbon Dioxide BUN 33 H Creatinine 2.3 H Glucose 156 H POC Glucose Lactic Acid Calcium Magnesium Ferritin Total Bilirubin 3.40 H Direct Bilirubin 1.7 H AST 385 H ALT 134 H Alkaline Phosphatase Lactate Dehydrogenase C-Reactive Protein Total Protein Albumin 3.0 L Triglycerides Arterial Blood Glucose Arterial Blood Ionized Calcium Urine WBC (Auto) Coronavirus (PCR) SARS-CoV-2 IgG Ab 05/09/20 05/09/20 05/09/20 12:59 12:59 12:59 WBC RBC Hgb Hct MCV MCH MCHC RDW Lymph % (Auto) Lymph # (Auto) Seg Neutrophils % Seg Neuts % (Manual) Lymphocytes % (Manual) Seg Neutrophils # Seg Neutrophils # Man Lymphocytes # (Manual) D-Dimer 3242.51 H ABG pH POC ABG pCO2 POC ABG pO2 ABG pO2 ABG HCO3 ABG O2 Saturation ABG Base Excess ABG Hemoglobin ABG Oxyhemoglobin ABG Sodium ABG Potassium ABG Chloride ABG Glucose Oxyhemoglobin Sodium Potassium Chloride Carbon Dioxide BUN Creatinine Glucose 158 H POC Glucose Lactic Acid 3.50 H* Calcium Magnesium Ferritin Total Bilirubin Direct Bilirubin AST ALT Alkaline Phosphatase Lactate Dehydrogenase 2166 H C-Reactive Protein 39.00 H Total Protein Albumin Triglycerides Arterial Blood Glucose Arterial Blood Ionized Calcium Urine WBC (Auto) Coronavirus (PCR) SARS-CoV-2 IgG Ab 05/09/20 05/09/20 05/09/20 12:59 14:20 14:20 WBC RBC Hgb Hct MCV MCH MCHC RDW Lymph % (Auto) Lymph # (Auto) Seg Neutrophils % Seg Neuts % (Manual) Lymphocytes % (Manual) Seg Neutrophils # Seg Neutrophils # Man Lymphocytes # (Manual) D-Dimer 2861.78 H ABG pH POC ABG pCO2 POC ABG pO2 ABG pO2 ABG HCO3 ABG O2 Saturation ABG Base Excess ABG Hemoglobin ABG Oxyhemoglobin ABG Sodium ABG Potassium ABG Chloride ABG Glucose Oxyhemoglobin Sodium Potassium Chloride Carbon Dioxide BUN Creatinine Glucose POC Glucose Lactic Acid 2.20 H* Calcium Magnesium Ferritin 04412.0 H Total Bilirubin Direct Bilirubin AST ALT Alkaline Phosphatase Lactate Dehydrogenase C-Reactive Protein Total Protein Albumin Triglycerides Arterial Blood Glucose Arterial Blood Ionized Calcium Urine WBC (Auto) Coronavirus (PCR) SARS-CoV-2 IgG Ab 05/09/20 05/09/20 05/09/20 14:20 14:20 15:56 WBC RBC Hgb Hct MCV MCH MCHC RDW Lymph % (Auto) Lymph # (Auto) Seg Neutrophils % Seg Neuts % (Manual) Lymphocytes % (Manual) Seg Neutrophils # Seg Neutrophils # Man Lymphocytes # (Manual) D-Dimer ABG pH POC ABG pCO2 POC ABG pO2 57.3 L ABG pO2 ABG HCO3 ABG O2 Saturation ABG Base Excess ABG Hemoglobin ABG Oxyhemoglobin 86.3 L ABG Sodium 129.9 L ABG Potassium ABG Chloride ABG Glucose 146 H Oxyhemoglobin Sodium Potassium Chloride Carbon Dioxide BUN Creatinine Glucose 143 H POC Glucose Lactic Acid Calcium Magnesium Ferritin 28539.0 H Total Bilirubin Direct Bilirubin AST ALT Alkaline Phosphatase Lactate Dehydrogenase 1953 H C-Reactive Protein 33.50 H Total Protein Albumin Triglycerides Arterial Blood Glucose 146 H Arterial Blood Ionized Calcium 3.9 L Urine WBC (Auto) Coronavirus (PCR) SARS-CoV-2 IgG Ab 05/10/20 05/10/20 05/10/20 10:32 10:32 18:50 WBC 15.4 H RBC Hgb Hct MCV 97 H MCH 33 H MCHC RDW 13.1 L Lymph % (Auto) Lymph # (Auto) Seg Neutrophils % Seg Neuts % (Manual) 89.0 H Lymphocytes % (Manual) 8.0 L Seg Neutrophils # Seg Neutrophils # Man 13.7 H Lymphocytes # (Manual) D-Dimer ABG pH POC ABG pCO2 POC ABG pO2 ABG pO2 ABG HCO3 ABG O2 Saturation ABG Base Excess ABG Hemoglobin ABG Oxyhemoglobin ABG Sodium ABG Potassium ABG Chloride ABG Glucose Oxyhemoglobin Sodium 136 L Potassium Chloride 97.4 L Carbon Dioxide BUN 37 H Creatinine 1.7 H Glucose 209 H POC Glucose Lactic Acid Calcium Magnesium Ferritin > 2000.0 H Total Bilirubin Direct Bilirubin AST ALT Alkaline Phosphatase Lactate Dehydrogenase C-Reactive Protein Total Protein Albumin Triglycerides Arterial Blood Glucose Arterial Blood Ionized Calcium Urine WBC (Auto) Coronavirus (PCR) SARS-CoV-2 IgG Ab 05/10/20 05/10/20 05/10/20 18:50 19:00 Unknown WBC RBC Hgb Hct MCV MCH MCHC RDW Lymph % (Auto) Lymph # (Auto) Seg Neutrophils % Seg Neuts % (Manual) Lymphocytes % (Manual) Seg Neutrophils # Seg Neutrophils # Man Lymphocytes # (Manual) D-Dimer > 53660 H ABG pH POC ABG pCO2 POC ABG pO2 ABG pO2 ABG HCO3 ABG O2 Saturation ABG Base Excess ABG Hemoglobin ABG Oxyhemoglobin ABG Sodium ABG Potassium ABG Chloride ABG Glucose Oxyhemoglobin Sodium Potassium Chloride Carbon Dioxide BUN Creatinine Glucose POC Glucose Lactic Acid Calcium Magnesium Ferritin Total Bilirubin Direct Bilirubin AST ALT Alkaline Phosphatase Lactate Dehydrogenase 1879 H C-Reactive Protein 24.80 H Total Protein Albumin Triglycerides Arterial Blood Glucose Arterial Blood Ionized Calcium Urine WBC (Auto) 11.0 H Coronavirus (PCR) SARS-CoV-2 IgG Ab 05/10/20 05/11/20 05/11/20 Unknown 07:30 07:30 WBC RBC Hgb Hct MCV MCH MCHC RDW Lymph % (Auto) Lymph # (Auto) Seg Neutrophils % Seg Neuts % (Manual) Lymphocytes % (Manual) Seg Neutrophils # Seg Neutrophils # Man Lymphocytes # (Manual) D-Dimer > 2000 H ABG pH POC ABG pCO2 POC ABG pO2 ABG pO2 ABG HCO3 ABG O2 Saturation ABG Base Excess ABG Hemoglobin ABG Oxyhemoglobin ABG Sodium ABG Potassium ABG Chloride ABG Glucose Oxyhemoglobin Sodium Potassium Chloride 96.3 L Carbon Dioxide BUN 36 H Creatinine Glucose 161 H POC Glucose Lactic Acid Calcium 8.3 L Magnesium Ferritin Total Bilirubin 1.50 H Direct Bilirubin 0.6 H AST 178 H ALT 111 H Alkaline Phosphatase Lactate Dehydrogenase C-Reactive Protein Total Protein Albumin 3.0 L Triglycerides Arterial Blood Glucose Arterial Blood Ionized Calcium Urine WBC (Auto) Coronavirus (PCR) Positive A SARS-CoV-2 IgG Ab 05/11/20 05/11/20 05/11/20 07:30 07:30 07:30 WBC RBC Hgb Hct MCV MCH MCHC RDW Lymph % (Auto) Lymph # (Auto) Seg Neutrophils % Seg Neuts % (Manual) Lymphocytes % (Manual) Seg Neutrophils # Seg Neutrophils # Man Lymphocytes # (Manual) D-Dimer ABG pH POC ABG pCO2 POC ABG pO2 ABG pO2 ABG HCO3 ABG O2 Saturation ABG Base Excess ABG Hemoglobin ABG Oxyhemoglobin ABG Sodium ABG Potassium ABG Chloride ABG Glucose Oxyhemoglobin Sodium Potassium Chloride Carbon Dioxide BUN Creatinine Glucose POC Glucose Lactic Acid Calcium Magnesium Ferritin 25010.0 H Total Bilirubin Direct Bilirubin AST ALT Alkaline Phosphatase Lactate Dehydrogenase 1523 H C-Reactive Protein 12.90 H Total Protein Albumin Triglycerides Arterial Blood Glucose Arterial Blood Ionized Calcium Urine WBC (Auto) Coronavirus (PCR) SARS-CoV-2 IgG Ab Reactive A 05/13/20 05/13/20 05/15/20 05:20 05:20 08:15 WBC RBC Hgb Hct MCV MCH MCHC RDW Lymph % (Auto) Lymph # (Auto) Seg Neutrophils % Seg Neuts % (Manual) Lymphocytes % (Manual) Seg Neutrophils # Seg Neutrophils # Man Lymphocytes # (Manual) D-Dimer > 64212 H 5318.28 H ABG pH POC ABG pCO2 POC ABG pO2 ABG pO2 ABG HCO3 ABG O2 Saturation ABG Base Excess ABG Hemoglobin ABG Oxyhemoglobin ABG Sodium ABG Potassium ABG Chloride ABG Glucose Oxyhemoglobin Sodium Potassium Chloride Carbon Dioxide 32 H BUN 30 H Creatinine Glucose 156 H POC Glucose Lactic Acid Calcium Magnesium 2.60 H Ferritin Total Bilirubin 1.40 H Direct Bilirubin AST 121 H ALT 119 H Alkaline Phosphatase Lactate Dehydrogenase 957 H C-Reactive Protein 4.00 H Total Protein Albumin 3.0 L Triglycerides Arterial Blood Glucose Arterial Blood Ionized Calcium Urine WBC (Auto) Coronavirus (PCR) SARS-CoV-2 IgG Ab 05/15/20 05/15/20 05/15/20 08:15 08:15 08:15 WBC 12.4 H RBC Hgb Hct MCV 98 H MCH 33 H MCHC RDW Lymph % (Auto) 9.7 L Lymph # (Auto) Seg Neutrophils % 86.8 H Seg Neuts % (Manual) Lymphocytes % (Manual) Seg Neutrophils # 10.8 H Seg Neutrophils # Man Lymphocytes # (Manual) D-Dimer ABG pH POC ABG pCO2 POC ABG pO2 ABG pO2 ABG HCO3 ABG O2 Saturation ABG Base Excess ABG Hemoglobin ABG Oxyhemoglobin ABG Sodium ABG Potassium ABG Chloride ABG Glucose Oxyhemoglobin Sodium Potassium Chloride 94.8 L Carbon Dioxide 32 H BUN 22 H Creatinine Glucose 115 H POC Glucose Lactic Acid Calcium 8.3 L Magnesium Ferritin 2494.0 H Total Bilirubin Direct Bilirubin AST 73 H ALT 121 H Alkaline Phosphatase Lactate Dehydrogenase 835 H C-Reactive Protein 3.40 H Total Protein 6.1 L Albumin 3.0 L Triglycerides Arterial Blood Glucose Arterial Blood Ionized Calcium Urine WBC (Auto) Coronavirus (PCR) SARS-CoV-2 IgG Ab 05/17/20 05/17/20 05/17/20 05:50 05:50 05:50 WBC RBC Hgb Hct MCV MCH MCHC RDW Lymph % (Auto) Lymph # (Auto) Seg Neutrophils % Seg Neuts % (Manual) Lymphocytes % (Manual) Seg Neutrophils # Seg Neutrophils # Man Lymphocytes # (Manual) D-Dimer 2911.42 H ABG pH POC ABG pCO2 POC ABG pO2 ABG pO2 ABG HCO3 ABG O2 Saturation ABG Base Excess ABG Hemoglobin ABG Oxyhemoglobin ABG Sodium ABG Potassium ABG Chloride ABG Glucose Oxyhemoglobin Sodium 136 L Potassium Chloride 96.0 L Carbon Dioxide 34 H BUN 22 H Creatinine Glucose 140 H POC Glucose Lactic Acid Calcium Magnesium Ferritin 2082.0 H Total Bilirubin Direct Bilirubin AST ALT 75 H Alkaline Phosphatase Lactate Dehydrogenase 601 H C-Reactive Protein 2.70 H Total Protein Albumin 2.9 L Triglycerides Arterial Blood Glucose Arterial Blood Ionized Calcium Urine WBC (Auto) Coronavirus (PCR) SARS-CoV-2 IgG Ab 05/17/20 05/18/20 05/20/20 05:50 12:22 08:16 WBC RBC Hgb Hct MCV 98 H MCH 33 H MCHC RDW Lymph % (Auto) 8.0 L Lymph # (Auto) 0.8 L Seg Neutrophils % 89.3 H Seg Neuts % (Manual) Lymphocytes % (Manual) Seg Neutrophils # 8.8 H Seg Neutrophils # Man Lymphocytes # (Manual) D-Dimer 1887.82 H ABG pH POC ABG pCO2 POC ABG pO2 ABG pO2 ABG HCO3 ABG O2 Saturation ABG Base Excess ABG Hemoglobin ABG Oxyhemoglobin ABG Sodium ABG Potassium ABG Chloride ABG Glucose Oxyhemoglobin Sodium Potassium Chloride Carbon Dioxide BUN Creatinine Glucose POC Glucose 178 H Lactic Acid Calcium Magnesium Ferritin Total Bilirubin Direct Bilirubin AST ALT Alkaline Phosphatase Lactate Dehydrogenase C-Reactive Protein Total Protein Albumin Triglycerides Arterial Blood Glucose Arterial Blood Ionized Calcium Urine WBC (Auto) Coronavirus (PCR) SARS-CoV-2 IgG Ab 05/20/20 05/20/2005/21/20 08:16 08:16 21:10 WBC RBC Hgb Hct MCV MCH MCHC RDW Lymph % (Auto) Lymph # (Auto) Seg Neutrophils % Seg Neuts % (Manual) Lymphocytes % (Manual) Seg Neutrophils # Seg Neutrophils # Man Lymphocytes # (Manual) D-Dimer ABG pH 7.483 H POC ABG pCO2 POC ABG pO2 ABG pO2 50.0 L ABG HCO3 27.0 H ABG O2 Saturation 86.2 L ABG Base Excess 3.7 H ABG Hemoglobin ABG Oxyhemoglobin ABG Sodium ABG Potassium ABG Chloride ABG Glucose Oxyhemoglobin 84.2 L Sodium Potassium Chloride Carbon Dioxide BUN Creatinine Glucose POC Glucose Lactic Acid Calcium Magnesium Ferritin 1960.0 H Total Bilirubin Direct Bilirubin AST ALT Alkaline Phosphatase Lactate Dehydrogenase 705 H C-Reactive Protein 3.10 H Total Protein Albumin Triglycerides Arterial Blood Glucose Arterial Blood Ionized Calcium Urine WBC (Auto) Coronavirus (PCR) SARS-CoV-2 IgG Ab 05/22/20 05/22/20 05/22/20 04:01 07:53 07:53 WBC 19.2 H RBC Hgb Hct MCV 98 H MCH 34 H MCHC RDW Lymph % (Auto) Lymph # (Auto) Seg Neutrophils % Seg Neuts % (Manual) 96.0 H Lymphocytes % (Manual) 1.0 L Seg Neutrophils # Seg Neutrophils # Man 18.4 H Lymphocytes # (Manual) 0.2 L D-Dimer ABG pH POC ABG pCO2 53.8 H POC ABG pO2 125.5 H ABG pO2 ABG HCO3 ABG O2 Saturation ABG Base Excess ABG Hemoglobin ABG Oxyhemoglobin ABG Sodium 131.8 L ABG Potassium 4.8 H ABG Chloride 94.0 L ABG Glucose 163 H Oxyhemoglobin Sodium 131 L Potassium Chloride 93.4 L Carbon Dioxide BUN 40 H Creatinine Glucose 176 H POC Glucose Lactic Acid Calcium Magnesium 2.70 H Ferritin Total Bilirubin 1.80 H Direct Bilirubin AST 45 H ALT 116 H Alkaline Phosphatase 181 H Lactate Dehydrogenase C-Reactive Protein Total Protein Albumin 2.6 L Triglycerides Arterial Blood Glucose 163 H Arterial Blood Ionized Calcium 4.5 L Urine WBC (Auto) Coronavirus (PCR) SARS-CoV-2 IgG Ab 05/23/20 05/24/20 05/24/20 04:17 03:07 04:08 WBC RBC Hgb Hct MCV MCH MCHC RDW Lymph % (Auto) Lymph # (Auto) Seg Neutrophils % Seg Neuts % (Manual) Lymphocytes % (Manual) Seg Neutrophils # Seg Neutrophils # Man Lymphocytes # (Manual) D-Dimer ABG pH 7.328 L POC ABG pCO2 POC ABG pO2 ABG pO2 72.8 L 73.4 L ABG HCO3 31.0 H 34.0 H ABG O2 Saturation 93.5 L ABG Base Excess 3.5 H 7.7 H ABG Hemoglobin 13.3 L 12.1 L ABG Oxyhemoglobin ABG Sodium ABG Potassium ABG Chloride ABG Glucose Oxyhemoglobin 91.5 L 94.3 L Sodium Potassium Chloride Carbon Dioxide BUN Creatinine Glucose POC Glucose 155 H Lactic Acid Calcium Magnesium Ferritin Total Bilirubin Direct Bilirubin AST ALT Alkaline Phosphatase Lactate Dehydrogenase C-Reactive Protein Total Protein Albumin Triglycerides Arterial Blood Glucose Arterial Blood Ionized Calcium Urine WBC (Auto) Coronavirus (PCR) SARS-CoV-2 IgG Ab 05/24/20 05/24/20 05/24/20 09:33 12:21 17:52 WBC RBC Hgb Hct MCV MCH MCHC RDW Lymph % (Auto) Lymph # (Auto) Seg Neutrophils % Seg Neuts % (Manual) Lymphocytes % (Manual) Seg Neutrophils # Seg Neutrophils # Man Lymphocytes # (Manual) D-Dimer ABG pH POC ABG pCO2 POC ABG pO2 ABG pO2 ABG HCO3 ABG O2 Saturation ABG Base Excess ABG Hemoglobin ABG Oxyhemoglobin ABG Sodium ABG Potassium ABG Chloride ABG Glucose Oxyhemoglobin Sodium Potassium Chloride Carbon Dioxide 34 H D BUN 28 H Creatinine 0.7 L Glucose 168 H POC Glucose 173 H 164 H Lactic Acid Calcium Magnesium Ferritin Total Bilirubin Direct Bilirubin AST ALT Alkaline Phosphatase Lactate Dehydrogenase C-Reactive Protein Total Protein Albumin Triglycerides Arterial Blood Glucose Arterial Blood Ionized Calcium Urine WBC (Auto) Coronavirus (PCR) SARS-CoV-2 IgG Ab 05/24/20 05/25/20 05/25/20 23:47 04:29 05:46 WBC RBC Hgb Hct MCV MCH MCHC RDW Lymph % (Auto) Lymph # (Auto) Seg Neutrophils % Seg Neuts % (Manual) Lymphocytes % (Manual) Seg Neutrophils # Seg Neutrophils # Man Lymphocytes # (Manual) D-Dimer ABG pH POC ABG pCO2 68.6 H POC ABG pO2 ABG pO2 ABG HCO3 ABG O2 Saturation ABG Base Excess ABG Hemoglobin ABG Oxyhemoglobin ABG Sodium ABG Potassium 4.7 H ABG Chloride ABG Glucose 226 H Oxyhemoglobin Sodium Potassium Chloride Carbon Dioxide BUN Creatinine Glucose POC Glucose 171 H 201 H Lactic Acid Calcium Magnesium Ferritin Total Bilirubin Direct Bilirubin AST ALT Alkaline Phosphatase Lactate Dehydrogenase C-Reactive Protein Total Protein Albumin Triglycerides Arterial Blood Glucose 226 H Arterial Blood Ionized Calcium Urine WBC (Auto) Coronavirus (PCR) SARS-CoV-2 IgG Ab 05/25/20 05/25/20 05/25/20 08:37 08:37 12:38 WBC 12.0 H RBC 3.64 L Hgb Hct MCV 99 H MCH 33 H MCHC RDW Lymph % (Auto) Lymph # (Auto) Seg Neutrophils % Seg Neuts % (Manual) Lymphocytes % (Manual) Seg Neutrophils # Seg Neutrophils # Man Lymphocytes # (Manual) D-Dimer ABG pH POC ABG pCO2 POC ABG pO2 ABG pO2 ABG HCO3 ABG O2 Saturation ABG Base Excess ABG Hemoglobin ABG Oxyhemoglobin ABG Sodium ABG Potassium ABG Chloride ABG Glucose Oxyhemoglobin Sodium Potassium Chloride 97.3 L Carbon Dioxide 35 H BUN 25 H Creatinine 0.7 L Glucose 191 H POC Glucose 182 H Lactic Acid Calcium Magnesium Ferritin Total Bilirubin Direct Bilirubin AST ALT Alkaline Phosphatase Lactate Dehydrogenase C-Reactive Protein Total Protein Albumin Triglycerides Arterial Blood Glucose Arterial Blood Ionized Calcium Urine WBC (Auto) Coronavirus (PCR) SARS-CoV-2 IgG Ab 05/25/20 05/26/20 05/26/20 18:16 00:06 04:50 WBC RBC Hgb Hct MCV MCH MCHC RDW Lymph % (Auto) Lymph # (Auto) Seg Neutrophils % Seg Neuts % (Manual) Lymphocytes % (Manual) Seg Neutrophils # Seg Neutrophils # Man Lymphocytes # (Manual) D-Dimer ABG pH POC ABG pCO2 POC ABG pO2 ABG pO2 221.5 H ABG HCO3 40.4 H ABG O2 Saturation 99.3 H ABG Base Excess 12.8 H ABG Hemoglobin 10.4 L ABG Oxyhemoglobin ABG Sodium ABG Potassium ABG Chloride ABG Glucose Oxyhemoglobin Sodium Potassium Chloride Carbon Dioxide BUN Creatinine Glucose POC Glucose 176 H 152 H Lactic Acid Calcium Magnesium Ferritin Total Bilirubin Direct Bilirubin AST ALT Alkaline Phosphatase Lactate Dehydrogenase C-Reactive Protein Total Protein Albumin Triglycerides Arterial Blood Glucose Arterial Blood Ionized Calcium Urine WBC (Auto) Coronavirus (PCR) SARS-CoV-2 IgG Ab 05/26/20 05/26/20 05/26/20 06:11 07:51 07:51 WBC 13.4 H RBC 3.64 L Hgb Hct MCV 98 H MCH 33 H MCHC RDW Lymph % (Auto) Lymph # (Auto) Seg Neutrophils % Seg Neuts % (Manual) Lymphocytes % (Manual) Seg Neutrophils # Seg Neutrophils # Man Lymphocytes # (Manual) D-Dimer ABG pH POC ABG pCO2 POC ABG pO2 ABG pO2 ABG HCO3 ABG O2 Saturation ABG Base Excess ABG Hemoglobin ABG Oxyhemoglobin ABG Sodium ABG Potassium ABG Chloride ABG Glucose Oxyhemoglobin Sodium Potassium Chloride 96.6 L Carbon Dioxide 39 H BUN 29 H Creatinine 0.7 L Glucose 174 H POC Glucose 165 H Lactic Acid Calcium Magnesium Ferritin Total Bilirubin Direct Bilirubin AST ALT Alkaline Phosphatase Lactate Dehydrogenase C-Reactive Protein Total Protein Albumin Triglycerides Arterial Blood Glucose Arterial Blood Ionized Calcium Urine WBC (Auto) Coronavirus (PCR) SARS-CoV-2 IgG Ab 05/26/20 05/27/20 05/27/20 23:23 03:43 05:29 WBC RBC Hgb Hct MCV MCH MCHC RDW Lymph % (Auto) Lymph # (Auto) Seg Neutrophils % Seg Neuts % (Manual) Lymphocytes % (Manual) Seg Neutrophils # Seg Neutrophils # Man Lymphocytes # (Manual) D-Dimer ABG pH 7.480 H POC ABG pCO2 52.4 H POC ABG pO2 61.4 L ABG pO2 ABG HCO3 ABG O2 Saturation ABG Base Excess ABG Hemoglobin ABG Oxyhemoglobin ABG Sodium 134.9 L ABG Potassium ABG Chloride 95.0 L ABG Glucose 221 H Oxyhemoglobin Sodium Potassium Chloride Carbon Dioxide BUN Creatinine Glucose POC Glucose 169 H 227 H Lactic Acid Calcium Magnesium Ferritin Total Bilirubin Direct Bilirubin AST ALT Alkaline Phosphatase Lactate Dehydrogenase C-Reactive Protein Total Protein Albumin Triglycerides Arterial Blood Glucose 221 H Arterial Blood Ionized Calcium 4.5 L Urine WBC (Auto) Coronavirus (PCR) SARS-CoV-2 IgG Ab 05/27/20 05/27/20 05/27/20 07:19 12:18 13:50 WBC RBC Hgb Hct MCV MCH MCHC RDW Lymph % (Auto) Lymph # (Auto) Seg Neutrophils % Seg Neuts % (Manual) Lymphocytes % (Manual) Seg Neutrophils # Seg Neutrophils # Man Lymphocytes # (Manual) D-Dimer ABG pH POC ABG pCO2 POC ABG pO2 ABG pO2 ABG HCO3 ABG O2 Saturation ABG Base Excess ABG Hemoglobin ABG Oxyhemoglobin ABG Sodium ABG Potassium ABG Chloride ABG Glucose Oxyhemoglobin Sodium Potassium Chloride Carbon Dioxide BUN Creatinine Glucose POC Glucose 114 H 148 H Lactic Acid Calcium Magnesium Ferritin Total Bilirubin Direct Bilirubin AST ALT Alkaline Phosphatase Lactate Dehydrogenase C-Reactive Protein Total Protein Albumin Triglycerides 247 H Arterial Blood Glucose Arterial Blood Ionized Calcium Urine WBC (Auto) Coronavirus (PCR) SARS-CoV-2 IgG Ab 05/28/20 05/28/20 05/28/20 00:13 04:16 05:22 WBC RBC Hgb Hct MCV MCH MCHC RDW Lymph % (Auto) Lymph # (Auto) Seg Neutrophils % Seg Neuts % (Manual) Lymphocytes % (Manual) Seg Neutrophils # Seg Neutrophils # Man Lymphocytes # (Manual) D-Dimer ABG pH POC ABG pCO2 64.4 H POC ABG pO2 60.5 L ABG pO2 ABG HCO3 ABG O2 Saturation ABG Base Excess ABG Hemoglobin ABG Oxyhemoglobin ABG Sodium ABG Potassium ABG Chloride 95.0 L ABG Glucose 209 H Oxyhemoglobin Sodium Potassium Chloride Carbon Dioxide BUN Creatinine Glucose POC Glucose 155 H 186 H Lactic Acid Calcium Magnesium Ferritin Total Bilirubin Direct Bilirubin AST ALT Alkaline Phosphatase Lactate Dehydrogenase C-Reactive Protein Total Protein Albumin Triglycerides Arterial Blood Glucose 209 H Arterial Blood Ionized Calcium Urine WBC (Auto) Coronavirus (PCR) SARS-CoV-2 IgG Ab 05/28/20 05/28/20 05/29/20 12:45 17:39 00:37 WBC RBC Hgb Hct MCV MCH MCHC RDW Lymph % (Auto) Lymph # (Auto) Seg Neutrophils % Seg Neuts % (Manual) Lymphocytes % (Manual) Seg Neutrophils # Seg Neutrophils # Man Lymphocytes # (Manual) D-Dimer ABG pH POC ABG pCO2 POC ABG pO2 ABG pO2 ABG HCO3 ABG O2 Saturation ABG Base Excess ABG Hemoglobin ABG Oxyhemoglobin ABG Sodium ABG Potassium ABG Chloride ABG Glucose Oxyhemoglobin Sodium Potassium Chloride Carbon Dioxide BUN Creatinine Glucose POC Glucose 143 H 164 H 221 H Lactic Acid Calcium Magnesium Ferritin Total Bilirubin Direct Bilirubin AST ALT Alkaline Phosphatase Lactate Dehydrogenase C-Reactive Protein Total Protein Albumin Triglycerides Arterial Blood Glucose Arterial Blood Ionized Calcium Urine WBC (Auto) Coronavirus (PCR) SARS-CoV-2 IgG Ab 05/29/20 05/29/2005/29/20 04:15 05:33 12:34 WBC RBC Hgb Hct MCV MCH MCHC RDW Lymph % (Auto) Lymph # (Auto) Seg Neutrophils % Seg Neuts % (Manual) Lymphocytes % (Manual) Seg Neutrophils # Seg Neutrophils # Man Lymphocytes # (Manual) D-Dimer ABG pH 7.463 H POC ABG pCO2 56.3 H POC ABG pO2 81.2 L ABG pO2 ABG HCO3 ABG O2 Saturation ABG Base Excess ABG Hemoglobin ABG Oxyhemoglobin ABG Sodium ABG Potassium ABG Chloride 96.0 L ABG Glucose 194 H Oxyhemoglobin Sodium Potassium Chloride Carbon Dioxide BUN Creatinine Glucose POC Glucose 133 H 221 H Lactic Acid Calcium Magnesium Ferritin Total Bilirubin Direct Bilirubin AST ALT Alkaline Phosphatase Lactate Dehydrogenase C-Reactive Protein Total Protein Albumin Triglycerides Arterial Blood Glucose 194 H Arterial Blood Ionized Calcium 4.5 L Urine WBC (Auto) Coronavirus (PCR) SARS-CoV-2 IgG Ab 05/29/20 05/30/20 05/30/20 18:07 00:12 05:38 WBC RBC Hgb Hct MCV MCH MCHC RDW Lymph % (Auto) Lymph # (Auto) Seg Neutrophils % Seg Neuts % (Manual) Lymphocytes % (Manual) Seg Neutrophils # Seg Neutrophils # Man Lymphocytes # (Manual) D-Dimer ABG pH POC ABG pCO2 POC ABG pO2 ABG pO2 ABG HCO3 ABG O2 Saturation ABG Base Excess ABG Hemoglobin ABG Oxyhemoglobin ABG Sodium ABG Potassium ABG Chloride ABG Glucose Oxyhemoglobin Sodium Potassium Chloride Carbon Dioxide BUN Creatinine Glucose POC Glucose 162 H 190 H 208 H Lactic Acid Calcium Magnesium Ferritin Total Bilirubin Direct Bilirubin AST ALT Alkaline Phosphatase Lactate Dehydrogenase C-Reactive Protein Total Protein Albumin Triglycerides Arterial Blood Glucose Arterial Blood Ionized Calcium Urine WBC (Auto) Coronavirus (PCR) SARS-CoV-2 IgG Ab 05/30/20 05/30/20 05/30/20 09:30 11:35 11:54 WBC 12.4 H RBC 3.48 L Hgb 11.3 L Hct 34.6 L MCV 99 H MCH 33 H MCHC RDW Lymph % (Auto) Lymph # (Auto) Seg Neutrophils % Seg Neuts % (Manual) Lymphocytes % (Manual) Seg Neutrophils # Seg Neutrophils # Man Lymphocytes # (Manual) D-Dimer ABG pH 7.455 H POC ABG pCO2 57.5 H POC ABG pO2 81.5 L ABG pO2 ABG HCO3 ABG O2 Saturation ABG Base Excess ABG Hemoglobin ABG Oxyhemoglobin ABG Sodium ABG Potassium ABG Chloride 96.0 L ABG Glucose 204 H Oxyhemoglobin Sodium Potassium Chloride Carbon Dioxide BUN Creatinine Glucose POC Glucose 183 H Lactic Acid Calcium Magnesium Ferritin Total Bilirubin Direct Bilirubin AST ALT Alkaline Phosphatase Lactate Dehydrogenase C-Reactive Protein Total Protein Albumin Triglycerides Arterial Blood Glucose 204 H Arterial Blood Ionized Calcium Urine WBC (Auto) Coronavirus (PCR) SARS-CoV-2 IgG Ab 05/30/20 05/31/20 05/31/20 18:01 00:10 03:22 WBC RBC Hgb Hct MCV MCH MCHC RDW Lymph % (Auto) Lymph # (Auto) Seg Neutrophils % Seg Neuts % (Manual) Lymphocytes % (Manual) Seg Neutrophils # Seg Neutrophils # Man Lymphocytes # (Manual) D-Dimer ABG pH POC ABG pCO2 60.4 H POC ABG pO2 71.5 L ABG pO2 ABG HCO3 ABG O2 Saturation ABG Base Excess ABG Hemoglobin ABG Oxyhemoglobin ABG Sodium ABG Potassium ABG Chloride 96.0 L ABG Glucose 169 H Oxyhemoglobin Sodium Potassium Chloride Carbon Dioxide BUN Creatinine Glucose POC Glucose 184 H 135 H Lactic Acid Calcium Magnesium Ferritin Total Bilirubin Direct Bilirubin AST ALT Alkaline Phosphatase Lactate Dehydrogenase C-Reactive Protein Total Protein Albumin Triglycerides Arterial Blood Glucose 169 H Arterial Blood Ionized Calcium 4.5 L Urine WBC (Auto) Coronavirus (PCR) SARS-CoV-2 IgG Ab 05/31/20 05/31/20 05/31/20 05:24 11:18 14:41 WBC RBC Hgb Hct MCV MCH MCHC RDW Lymph % (Auto) Lymph # (Auto) Seg Neutrophils % Seg Neuts % (Manual) Lymphocytes % (Manual) Seg Neutrophils # Seg Neutrophils # Man Lymphocytes # (Manual) D-Dimer ABG pH POC ABG pCO2 POC ABG pO2 ABG pO2 ABG HCO3 ABG O2 Saturation ABG Base Excess ABG Hemoglobin ABG Oxyhemoglobin ABG Sodium ABG Potassium ABG Chloride ABG Glucose Oxyhemoglobin Sodium Potassium Chloride 96.8 L Carbon Dioxide 37 H BUN 31 H Creatinine 0.6 L Glucose 213 H POC Glucose 164 H 208 H Lactic Acid Calcium Magnesium Ferritin Total Bilirubin Direct Bilirubin AST ALT Alkaline Phosphatase Lactate Dehydrogenase C-Reactive Protein Total Protein Albumin Triglycerides Arterial Blood Glucose Arterial Blood Ionized Calcium Urine WBC (Auto) Coronavirus (PCR) SARS-CoV-2 IgG Ab 05/31/20 05/31/20 06/01/20 17:37 23:47 03:48 WBC RBC Hgb Hct MCV MCH MCHC RDW Lymph % (Auto) Lymph # (Auto) Seg Neutrophils % Seg Neuts % (Manual) Lymphocytes % (Manual) Seg Neutrophils # Seg Neutrophils # Man Lymphocytes # (Manual) D-Dimer ABG pH POC ABG pCO2 59.7 H POC ABG pO2 73.9 L ABG pO2 ABG HCO3 ABG O2 Saturation ABG Base Excess ABG Hemoglobin ABG Oxyhemoglobin ABG Sodium ABG Potassium ABG Chloride 95.0 L ABG Glucose 256 H Oxyhemoglobin Sodium Potassium Chloride Carbon Dioxide BUN Creatinine Glucose POC Glucose 168 H 178 H Lactic Acid Calcium Magnesium Ferritin Total Bilirubin Direct Bilirubin AST ALT Alkaline Phosphatase Lactate Dehydrogenase C-Reactive Protein Total Protein Albumin Triglycerides Arterial Blood Glucose 256 H Arterial Blood Ionized Calcium Urine WBC (Auto) Coronavirus (PCR) SARS-CoV-2 IgG Ab 06/01/20 06/01/20 06/01/20 05:01 07:47 07:47 WBC 14.4 H RBC 3.46 L Hgb 11.1 L Hct 34.3 L MCV 99 H MCH MCHC RDW Lymph % (Auto) Lymph # (Auto) Seg Neutrophils % Seg Neuts % (Manual) 86.0 H Lymphocytes % (Manual) 9.0 L Seg Neutrophils # Seg Neutrophils # Man 12.4 H Lymphocytes # (Manual) D-Dimer ABG pH POC ABG pCO2 POC ABG pO2 ABG pO2 ABG HCO3 ABG O2 Saturation ABG Base Excess ABG Hemoglobin ABG Oxyhemoglobin ABG Sodium ABG Potassium ABG Chloride ABG Glucose Oxyhemoglobin Sodium Potassium Chloride Carbon Dioxide BUN Creatinine Glucose POC Glucose 197 H Lactic Acid Calcium Magnesium Ferritin Total Bilirubin Direct Bilirubin AST ALT Alkaline Phosphatase Lactate Dehydrogenase C-Reactive Protein Total Protein Albumin Triglycerides 244 H Arterial Blood Glucose Arterial Blood Ionized Calcium Urine WBC (Auto) Coronavirus (PCR) SARS-CoV-2 IgG Ab 06/01/20 06/01/20 06/01/20 07:47 11:46 18:15 WBC RBC Hgb Hct MCV MCH MCHC RDW Lymph % (Auto) Lymph # (Auto) Seg Neutrophils % Seg Neuts % (Manual) Lymphocytes % (Manual) Seg Neutrophils # Seg Neutrophils # Man Lymphocytes # (Manual) D-Dimer ABG pH POC ABG pCO2 POC ABG pO2 ABG pO2 ABG HCO3 ABG O2 Saturation ABG Base Excess ABG Hemoglobin ABG Oxyhemoglobin ABG Sodium ABG Potassium ABG Chloride ABG Glucose Oxyhemoglobin Sodium Potassium Chloride 95.4 L Carbon Dioxide 35 H BUN 30 H Creatinine 0.5 L Glucose 214 H POC Glucose 181 H 221 H Lactic Acid Calcium Magnesium Ferritin Total Bilirubin Direct Bilirubin AST 54 H ALT 235 H Alkaline Phosphatase Lactate Dehydrogenase C-Reactive Protein Total Protein Albumin 2.9 L Triglycerides Arterial Blood Glucose Arterial Blood Ionized Calcium Urine WBC (Auto) Coronavirus (PCR) SARS-CoV-2 IgG Ab 06/01/20 06/02/20 06/02/20 23:12 04:00 05:31 WBC RBC Hgb Hct MCV MCH MCHC RDW Lymph % (Auto) Lymph # (Auto) Seg Neutrophils % Seg Neuts % (Manual) Lymphocytes % (Manual) Seg Neutrophils # Seg Neutrophils # Man Lymphocytes # (Manual) D-Dimer ABG pH 7.465 H POC ABG pCO2 POC ABG pO2 ABG pO2 203.4 H ABG HCO3 41.2 H ABG O2 Saturation 99.3 H ABG Base Excess 15.1 H ABG Hemoglobin 11.5 L ABG Oxyhemoglobin ABG Sodium ABG Potassium ABG Chloride ABG Glucose Oxyhemoglobin Sodium Potassium Chloride Carbon Dioxide BUN Creatinine Glucose POC Glucose 197 H 184 H Lactic Acid Calcium Magnesium Ferritin Total Bilirubin Direct Bilirubin AST ALT Alkaline Phosphatase Lactate Dehydrogenase C-Reactive Protein Total Protein Albumin Triglycerides Arterial Blood Glucose Arterial Blood Ionized Calcium Urine WBC (Auto) Coronavirus (PCR) SARS-CoV-2 IgG Ab 06/02/20 06/02/20 06/02/20 11:49 18:06 23:00 WBC RBC Hgb Hct MCV MCH MCHC RDW Lymph % (Auto) Lymph # (Auto) Seg Neutrophils % Seg Neuts % (Manual) Lymphocytes % (Manual) Seg Neutrophils # Seg Neutrophils # Man Lymphocytes # (Manual) D-Dimer ABG pH POC ABG pCO2 POC ABG pO2 ABG pO2 ABG HCO3 ABG O2 Saturation ABG Base Excess ABG Hemoglobin ABG Oxyhemoglobin ABG Sodium ABG Potassium ABG Chloride ABG Glucose Oxyhemoglobin Sodium Potassium Chloride Carbon Dioxide BUN Creatinine Glucose POC Glucose 195 H 177 H 228 H Lactic Acid Calcium Magnesium Ferritin Total Bilirubin Direct Bilirubin AST ALT Alkaline Phosphatase Lactate Dehydrogenase C-Reactive Protein Total Protein Albumin Triglycerides Arterial Blood Glucose Arterial Blood Ionized Calcium Urine WBC (Auto) Coronavirus (PCR) SARS-CoV-2 IgG Ab 06/03/20 06/03/20 03:58 05:19 WBC RBC Hgb Hct MCV MCH MCHC RDW Lymph % (Auto) Lymph # (Auto) Seg Neutrophils % Seg Neuts % (Manual) Lymphocytes % (Manual) Seg Neutrophils # Seg Neutrophils # Man Lymphocytes # (Manual) D-Dimer ABG pH POC ABG pCO2 POC ABG pO2 ABG pO2 171.0 H ABG HCO3 42.8 H ABG O2 Saturation ABG Base Excess 15.6 H ABG Hemoglobin 12.3 L ABG Oxyhemoglobin ABG Sodium ABG Potassium ABG Chloride ABG Glucose Oxyhemoglobin Sodium Potassium Chloride Carbon Dioxide BUN Creatinine Glucose POC Glucose 122 H Lactic Acid Calcium Magnesium Ferritin Total Bilirubin Direct Bilirubin AST ALT Alkaline Phosphatase Lactate Dehydrogenase C-Reactive Protein Total Protein Albumin Triglycerides Arterial Blood Glucose Arterial Blood Ionized Calcium Urine WBC (Auto) Coronavirus (PCR) SARS-CoV-2 IgG Ab Chest x-ray: pending Allied health notes reviewed: nursing
--- NOTE | 2020-06-03 12:52 | XRay Report ---
ABDOMEN 2 VIEWS INDICATION / CLINICAL INFORMATION: Constipation. COMPARISON: 05/28/2020 FINDINGS: TUBES / LINES: NG tube in appropriate position over the gastric lumen. BOWEL GAS PATTERN: Nonobstructive bowel gas pattern. FREE AIR / EXTRALUMINAL GAS: None seen. ADDITIONAL FINDINGS: No significant additional findings. CHEST: Visualized chest shows no significant abnormality. IMPRESSION: 1. Nonobstructive bowel gas pattern. 2. NG tube in appropriate position. Signer Name: Eric Leon MD Signed: 06/03/2020 12:47 PM Workstation Name: [id number]
[2020-06-03] MEDS: POLYETHYLENE GLYCOL 3350 17 GM POWDER PO SCH (21:04)
[2020-06-04] MEDS: INSULIN LISPRO 100 UNIT/ML VIAL 3 mL SUB-Q SCH ×4 (00:30→19:45)
[2020-06-04] MEDS: fentaNYL DRIP Premix 2,000 MCG/100 ML BAG IV SCH ×5 (03:55→23:54)
[2020-06-04 04:36] LABS: ABG Base Excess 15.3 mmol/L (-2.0-3.0); ABG HCO3 42.4 mmol/L (20.0-26.0); ABG Methemoglobin 0.5 % (0.0-1.5); ABG PCO2 67.6 mm Hg; ABG PH 7.415 pH Units (7.350-7.450); ABG PO2 117.2 mm Hg (80.0-90.0)
[2020-06-04] MEDS: methylPREDNISolone Sod Succinate 40 MG/1 ML INJ IV SCH ×2 (06:32→18:10)
[2020-06-04] MEDS: ENOXAPARIN 120 MG/0.8 ML INJ SUB-Q SCH ×2 (09:37→23:58)
[2020-06-04] MEDS: FOLIC ACID 1 MG TAB PO SCH (09:38)
[2020-06-04] MEDS: FAMOTIDINE 20 MG TAB PO SCH ×2 (09:38→23:59)
[2020-06-04] MEDS: METOPROLOL TARTRATE 25 MG TAB PO SCH (09:38)
[2020-06-04] MEDS: DOCUSATE SODIUM 100 MG/10 ML ORAL LIQD PO SCH ×2 (09:38→23:58)
--- NOTE | 2020-06-04 13:51 | Progress Note ---
Assessment and Plan Acute hypoxemic respiratory failure due to COVID-19 Severe COVID infection Severe Sepsis Bilateral pneumonia Acute kidney injury (SEN) with acute tubular necrosis (ATN)-improving h/o Alcohol dependence Elevated liver function tests probably secondary COVID Continue to wean supplemental oxygen for O2 sats>90% Monitor blood pressure closely while optimizing sedation, if any hypotension, start vasopressor support Will need PICC line if vasoactive medications are needed CIWA protocol initiated- patient has a history of alcohol dependence Continue to monitor airway pressures - VAP bundle addressed, aspiration precautions HOB >40 - Continue lung protective strategies, permissive hypercapnic acceptable. -Pa/FIO2 ratio acceptable at this time - continue bronchodilators with pulmonary hygiene per RT - wean per pulmonary driven protocols otherwise - accuchecks with glycemic control per SSI (While critically ill target blood glucose of 140-180 mg/dL; avoid hypoglycemia) - sedation prn for target RASS -1 to -2 - continue enteral nutritional support at goal rate as tolerated - Prone positioning as tolerated and indicated - Monitor liver function test , avoid hepatotoxic agents - Avoid nephrotoxins, renally dose all medications, conservative fluid management - continue to avoid benzodiazepines, reduce the possibility of delirium - prn analgesia per CPOT score - Maintenance of sleep-wake cycle, avoid delirium - continue to avoid benzodiazepines, reduce the possibility of delirium - aspiration precautions -Stress ulcer prophylaxis - PT/OT/ROM exercises - continue mobility protocols for pressure ulcer prevention -CXR, ABG as clinically indicated -CBC, BMP as clinically indicated -Supportive transfusions to keep HgB >7g/dL - Monitor hemodynamics closely - continue other care per attending / other consultants COVID SPECIFIC INTERVENTIONS - SARS CoV-2 IgG positive patient is NOT a candidate for COVID convalescent plasma -Completed remdesivir -continue steroids: on Solu-Medrol, wean -Monitor inflammatory markers - ferritin, Ddimer, CRP, LDH every 3 days -Continue anticoagulation per System Protocol based on d-dimer -Continue contact and airborne isolation .... Re-evaluate in am & prn CONDITION: CRITICAL PROGNOSIS: GUARDED CODE STATUS: FULL CODE The high probability of a clinically significant, sudden or life-threatening deterioration of the [respiratory, cardiovascular, hematologic & neurologic] system(s) required my full and direct attention, intervention and personal management. The aggregate critical care time was [32] minutes without overlap. Time includes spent on; [x] Data Review and interpretation [x] Patient assessment and monitoring of vital signs [x] Documentation [x] Medication orders and management Subjective Date of service: 06/04/20 Principal diagnosis: Ac hypoxemic resp failure; COVID-19; Severe Sepsis; Shaggy PNA; Alcohol Abuse Interval history: Patient is seen today for: Acute hypoxemic respiratory failure due to COVID-19; Severe Sepsis; Bilateral pneumonia; Alcohol dependence; Elevated liver function tests Seen and examined at bedside; 24hour events reviewed; nursing and respiratory care staff consulted; no adverse overnight events reported to me; resting in bed; remains on MVS; FiO2 at 45% PEEP +14 -ABG on 45 %PEEP 14 7.46/58/81/39. On going desaturations when he wakes up Objective Vital Signs - 12hr 06/04/20 06/04/20 06/04/20 02:00 03:00 04:00 Temperature Pulse Rate 90 98 H 97 H Pulse Rate [ 100 H From Monitor] Pulse Rate [ 100 H Right Dorsalis Pedis] Respiratory 20 14 20 Rate Blood Pressure 98/60 94/50 105/57 O2 Sat by Pulse 99 96 95 Oximetry 06/04/20 06/04/20 06/04/20 04:23 04:31 05:00 Temperature 98 F Pulse Rate 109 H 99 H Pulse Rate [ From Monitor] Pulse Rate [ Right Dorsalis Pedis] Respiratory 15 Rate Blood Pressure 117/68 98/51 O2 Sat by Pulse 95 95 Oximetry 06/04/20 06/04/20 06/04/20 06:00 07:00 08:00 Temperature 98.2 F Pulse Rate 95 H 88 86 Pulse Rate [ 107 H From Monitor] Pulse Rate [ Right Dorsalis Pedis] Respiratory 19 20 20 Rate Blood Pressure 99/58 81/51 106/52 O2 Sat by Pulse 97 96 95 Oximetry 06/04/20 06/04/20 06/04/20 08:05 09:00 09:38 Temperature Pulse Rate 107 H 104 H 113 H Pulse Rate [ From Monitor] Pulse Rate [ Right Dorsalis Pedis] Respiratory 18 Rate Blood Pressure 106/52 126/72 123/68 O2 Sat by Pulse 97 97 Oximetry 06/04/20 06/04/20 06/04/20 10:00 11:00 11:18 Temperature Pulse Rate 99 H 113 H 107 H Pulse Rate [ From Monitor] Pulse Rate [ Right Dorsalis Pedis] Respiratory 17 19 Rate Blood Pressure 126/62 129/79 114/71 O2 Sat by Pulse 92 96 100 Oximetry 06/04/20 12:00 Temperature 98.5 F Pulse Rate 106 H Pulse Rate [ 128 H From Monitor] Pulse Rate [ Right Dorsalis Pedis] Respiratory 15 Rate Blood Pressure 97/70 O2 Sat by Pulse 100 Oximetry Constitutional: asleep, appears uncomfortable, other (middle aged obese male without significant ventilator dyssynchrony) Eyes: non-icteric ENT: oropharynx moist, other (ETT 24 cm CHILO) Neck: supple, no JVD Effort: normal, mildly labored Ascultation: Bilateral: diminished breath sounds, rhonchi Percussion: Bilateral: not dull Cardiovascular: regular rate and rhythm Gastrointestinal: hypoactive bowel sounds, soft, non-tender, non-distended (protuberant) Integumentary: normal Extremities: no cyanosis, no edema, pulses normal, no ischemia or petechiae Neurologic: non-focal exam, pupils equal and round, CN II-XII normal, motor strength normal and, other (sedated) Psychiatric: other (sedated) CBC and BMP: 06/04/20 20:53 06/04/20 19:01 ABG, PT/INR, D-dimer: ABG ABG pH 7.415 pH Units (7.350-7.450) 06/04/20 03:55 POC ABG pCO2 59.7 mmHg (32.0-48.0) H 06/01/20 03:48 ABG pCO2 67.6 mm Hg 06/04/20 03:55 POC ABG pO2 73.9 mmHg (83-108) L 06/01/20 03:48 ABG pO2 117.2 mm Hg (80.0-90.0) H 06/04/20 03:55 POC ABG HCO3 38.7 06/01/20 03:48 ABG O2 Saturation 98.0 % (95.0-99.0) 06/04/20 03:55 PT/INR, D-dimer D-Dimer 1887.82 ng/mlDDU (0-234) H 05/20/20 08:16 Abnormal lab findings: Abnormal Labs 05/09/20 05/09/20 05/09/20 12:59 12:59 12:59 WBC 11.8 H RBC Hgb Hct MCV 96 H MCH 34 H MCHC 35 H RDW Lymph % (Auto) 6.9 L Lymph # (Auto) 0.8 L Seg Neutrophils % 87.5 H Seg Neuts % (Manual) Lymphocytes % (Manual) Seg Neutrophils # 10.3 H Seg Neutrophils # Man Lymphocytes # (Manual) D-Dimer ABG pH POC ABG pCO2 POC ABG pO2 ABG pO2 ABG HCO3 ABG O2 Saturation ABG Base Excess ABG Hemoglobin ABG Oxyhemoglobin ABG Sodium ABG Potassium ABG Chloride ABG Glucose Oxyhemoglobin Sodium 130 L Potassium 3.5 L Chloride 86.4 L Carbon Dioxide BUN 33 H Creatinine 2.3 H Glucose 156 H POC Glucose Lactic Acid Calcium Magnesium Ferritin Total Bilirubin 3.40 H Direct Bilirubin 1.7 H AST 385 H ALT 134 H Alkaline Phosphatase Lactate Dehydrogenase C-Reactive Protein Total Protein Albumin 3.0 L Triglycerides Arterial Blood Glucose Arterial Blood Ionized Calcium Urine WBC (Auto) Coronavirus (PCR) SARS-CoV-2 IgG Ab 05/09/20 05/09/20 05/09/20 12:59 12:59 12:59 WBC RBC Hgb Hct MCV MCH MCHC RDW Lymph % (Auto) Lymph # (Auto) Seg Neutrophils % Seg Neuts % (Manual) Lymphocytes % (Manual) Seg Neutrophils # Seg Neutrophils # Man Lymphocytes # (Manual) D-Dimer 3242.51 H ABG pH POC ABG pCO2 POC ABG pO2 ABG pO2 ABG HCO3 ABG O2 Saturation ABG Base Excess ABG Hemoglobin ABG Oxyhemoglobin ABG Sodium ABG Potassium ABG Chloride ABG Glucose Oxyhemoglobin Sodium Potassium Chloride Carbon Dioxide BUN Creatinine Glucose 158 H POC Glucose Lactic Acid 3.50 H* Calcium Magnesium Ferritin Total Bilirubin Direct Bilirubin AST ALT Alkaline Phosphatase Lactate Dehydrogenase 2166 H C-Reactive Protein 39.00 H Total Protein Albumin Triglycerides Arterial Blood Glucose Arterial Blood Ionized Calcium Urine WBC (Auto) Coronavirus (PCR) SARS-CoV-2 IgG Ab 05/09/20 05/09/20 05/09/20 12:59 14:20 14:20 WBC RBC Hgb Hct MCV MCH MCHC RDW Lymph % (Auto) Lymph # (Auto) Seg Neutrophils % Seg Neuts % (Manual) Lymphocytes % (Manual) Seg Neutrophils # Seg Neutrophils # Man Lymphocytes # (Manual) D-Dimer 2861.78 H ABG pH POC ABG pCO2 POC ABG pO2 ABG pO2 ABG HCO3 ABG O2 Saturation ABG Base Excess ABG Hemoglobin ABG Oxyhemoglobin ABG Sodium ABG Potassium ABG Chloride ABG Glucose Oxyhemoglobin Sodium Potassium Chloride Carbon Dioxide BUN Creatinine Glucose POC Glucose Lactic Acid 2.20 H* Calcium Magnesium Ferritin 44660.0 H Total Bilirubin Direct Bilirubin AST ALT Alkaline Phosphatase Lactate Dehydrogenase C-Reactive Protein Total Protein Albumin Triglycerides Arterial Blood Glucose Arterial Blood Ionized Calcium Urine WBC (Auto) Coronavirus (PCR) SARS-CoV-2 IgG Ab 05/09/20 05/09/20 05/09/20 14:20 14:20 15:56 WBC RBC Hgb Hct MCV MCH MCHC RDW Lymph % (Auto) Lymph # (Auto) Seg Neutrophils % Seg Neuts % (Manual) Lymphocytes % (Manual) Seg Neutrophils # Seg Neutrophils # Man Lymphocytes # (Manual) D-Dimer ABG pH POC ABG pCO2 POC ABG pO2 57.3 L ABG pO2 ABG HCO3 ABG O2 Saturation ABG Base Excess ABG Hemoglobin ABG Oxyhemoglobin 86.3 L ABG Sodium 129.9 L ABG Potassium ABG Chloride ABG Glucose 146 H Oxyhemoglobin Sodium Potassium Chloride Carbon Dioxide BUN Creatinine Glucose 143 H POC Glucose Lactic Acid Calcium Magnesium Ferritin 66794.0 H Total Bilirubin Direct Bilirubin AST ALT Alkaline Phosphatase Lactate Dehydrogenase 1953 H C-Reactive Protein 33.50 H Total Protein Albumin Triglycerides Arterial Blood Glucose 146 H Arterial Blood Ionized Calcium 3.9 L Urine WBC (Auto) Coronavirus (PCR) SARS-CoV-2 IgG Ab 05/10/20 05/10/20 05/10/20 10:32 10:32 18:50 WBC 15.4 H RBC Hgb Hct MCV 97 H MCH 33 H MCHC RDW 13.1 L Lymph % (Auto) Lymph # (Auto) Seg Neutrophils % Seg Neuts % (Manual) 89.0 H Lymphocytes % (Manual) 8.0 L Seg Neutrophils # Seg Neutrophils # Man 13.7 H Lymphocytes # (Manual) D-Dimer ABG pH POC ABG pCO2 POC ABG pO2 ABG pO2 ABG HCO3 ABG O2 Saturation ABG Base Excess ABG Hemoglobin ABG Oxyhemoglobin ABG Sodium ABG Potassium ABG Chloride ABG Glucose Oxyhemoglobin Sodium 136 L Potassium Chloride 97.4 L Carbon Dioxide BUN 37 H Creatinine 1.7 H Glucose 209 H POC Glucose Lactic Acid Calcium Magnesium Ferritin > 2000.0 H Total Bilirubin Direct Bilirubin AST ALT Alkaline Phosphatase Lactate Dehydrogenase C-Reactive Protein Total Protein Albumin Triglycerides Arterial Blood Glucose Arterial Blood Ionized Calcium Urine WBC (Auto) Coronavirus (PCR) SARS-CoV-2 IgG Ab 05/10/20 05/10/20 05/10/20 18:50 19:00 Unknown WBC RBC Hgb Hct MCV MCH MCHC RDW Lymph % (Auto) Lymph # (Auto) Seg Neutrophils % Seg Neuts % (Manual) Lymphocytes % (Manual) Seg Neutrophils # Seg Neutrophils # Man Lymphocytes # (Manual) D-Dimer > 69626 H ABG pH POC ABG pCO2 POC ABG pO2 ABG pO2 ABG HCO3 ABG O2 Saturation ABG Base Excess ABG Hemoglobin ABG Oxyhemoglobin ABG Sodium ABG Potassium ABG Chloride ABG Glucose Oxyhemoglobin Sodium Potassium Chloride Carbon Dioxide BUN Creatinine Glucose POC Glucose Lactic Acid Calcium Magnesium Ferritin Total Bilirubin Direct Bilirubin AST ALT Alkaline Phosphatase Lactate Dehydrogenase 1879 H C-Reactive Protein 24.80 H Total Protein Albumin Triglycerides Arterial Blood Glucose Arterial Blood Ionized Calcium Urine WBC (Auto) 11.0 H Coronavirus (PCR) SARS-CoV-2 IgG Ab 05/10/20 05/11/20 05/11/20 Unknown 07:30 07:30 WBC RBC Hgb Hct MCV MCH MCHC RDW Lymph % (Auto) Lymph # (Auto) Seg Neutrophils % Seg Neuts % (Manual) Lymphocytes % (Manual) Seg Neutrophils # Seg Neutrophils # Man Lymphocytes # (Manual) D-Dimer > 2000 H ABG pH POC ABG pCO2 POC ABG pO2 ABG pO2 ABG HCO3 ABG O2 Saturation ABG Base Excess ABG Hemoglobin ABG Oxyhemoglobin ABG Sodium ABG Potassium ABG Chloride ABG Glucose Oxyhemoglobin Sodium Potassium Chloride 96.3 L Carbon Dioxide BUN 36 H Creatinine Glucose 161 H POC Glucose Lactic Acid Calcium 8.3 L Magnesium Ferritin Total Bilirubin 1.50 H Direct Bilirubin 0.6 H AST 178 H ALT 111 H Alkaline Phosphatase Lactate Dehydrogenase C-Reactive Protein Total Protein Albumin 3.0 L Triglycerides Arterial Blood Glucose Arterial Blood Ionized Calcium Urine WBC (Auto) Coronavirus (PCR) Positive A SARS-CoV-2 IgG Ab 05/11/20 05/11/20 05/11/20 07:30 07:30 07:30 WBC RBC Hgb Hct MCV MCH MCHC RDW Lymph % (Auto) Lymph # (Auto) Seg Neutrophils % Seg Neuts % (Manual) Lymphocytes % (Manual) Seg Neutrophils # Seg Neutrophils # Man Lymphocytes # (Manual) D-Dimer ABG pH POC ABG pCO2 POC ABG pO2 ABG pO2 ABG HCO3 ABG O2 Saturation ABG Base Excess ABG Hemoglobin ABG Oxyhemoglobin ABG Sodium ABG Potassium ABG Chloride ABG Glucose Oxyhemoglobin Sodium Potassium Chloride Carbon Dioxide BUN Creatinine Glucose POC Glucose Lactic Acid Calcium Magnesium Ferritin 43972.0 H Total Bilirubin Direct Bilirubin AST ALT Alkaline Phosphatase Lactate Dehydrogenase 1523 H C-Reactive Protein 12.90 H Total Protein Albumin Triglycerides Arterial Blood Glucose Arterial Blood Ionized Calcium Urine WBC (Auto) Coronavirus (PCR) SARS-CoV-2 IgG Ab Reactive A 05/13/20 05/13/20 05/15/20 05:20 05:20 08:15 WBC RBC Hgb Hct MCV MCH MCHC RDW Lymph % (Auto) Lymph # (Auto) Seg Neutrophils % Seg Neuts % (Manual) Lymphocytes % (Manual) Seg Neutrophils # Seg Neutrophils # Man Lymphocytes # (Manual) D-Dimer > 99683 H 5318.28 H ABG pH POC ABG pCO2 POC ABG pO2 ABG pO2 ABG HCO3 ABG O2 Saturation ABG Base Excess ABG Hemoglobin ABG Oxyhemoglobin ABG Sodium ABG Potassium ABG Chloride ABG Glucose Oxyhemoglobin Sodium Potassium Chloride Carbon Dioxide 32 H BUN 30 H Creatinine Glucose 156 H POC Glucose Lactic Acid Calcium Magnesium 2.60 H Ferritin Total Bilirubin 1.40 H Direct Bilirubin AST 121 H ALT 119 H Alkaline Phosphatase Lactate Dehydrogenase 957 H C-Reactive Protein 4.00 H Total Protein Albumin 3.0 L Triglycerides Arterial Blood Glucose Arterial Blood Ionized Calcium Urine WBC (Auto) Coronavirus (PCR) SARS-CoV-2 IgG Ab 05/15/20 05/15/20 05/15/20 08:15 08:15 08:15 WBC 12.4 H RBC Hgb Hct MCV 98 H MCH 33 H MCHC RDW Lymph % (Auto) 9.7 L Lymph # (Auto) Seg Neutrophils % 86.8 H Seg Neuts % (Manual) Lymphocytes % (Manual) Seg Neutrophils # 10.8 H Seg Neutrophils # Man Lymphocytes # (Manual) D-Dimer ABG pH POC ABG pCO2 POC ABG pO2 ABG pO2 ABG HCO3 ABG O2 Saturation ABG Base Excess ABG Hemoglobin ABG Oxyhemoglobin ABG Sodium ABG Potassium ABG Chloride ABG Glucose Oxyhemoglobin Sodium Potassium Chloride 94.8 L Carbon Dioxide 32 H BUN 22 H Creatinine Glucose 115 H POC Glucose Lactic Acid Calcium 8.3 L Magnesium Ferritin 2494.0 H Total Bilirubin Direct Bilirubin AST 73 H ALT 121 H Alkaline Phosphatase Lactate Dehydrogenase 835 H C-Reactive Protein 3.40 H Total Protein 6.1 L Albumin 3.0 L Triglycerides Arterial Blood Glucose Arterial Blood Ionized Calcium Urine WBC (Auto) Coronavirus (PCR) SARS-CoV-2 IgG Ab 05/17/20 05/17/20 05/17/20 05:50 05:50 05:50 WBC RBC Hgb Hct MCV MCH MCHC RDW Lymph % (Auto) Lymph # (Auto) Seg Neutrophils % Seg Neuts % (Manual) Lymphocytes % (Manual) Seg Neutrophils # Seg Neutrophils # Man Lymphocytes # (Manual) D-Dimer 2911.42 H ABG pH POC ABG pCO2 POC ABG pO2 ABG pO2 ABG HCO3 ABG O2 Saturation ABG Base Excess ABG Hemoglobin ABG Oxyhemoglobin ABG Sodium ABG Potassium ABG Chloride ABG Glucose Oxyhemoglobin Sodium 136 L Potassium Chloride 96.0 L Carbon Dioxide 34 H BUN 22 H Creatinine Glucose 140 H POC Glucose Lactic Acid Calcium Magnesium Ferritin 2082.0 H Total Bilirubin Direct Bilirubin AST ALT 75 H Alkaline Phosphatase Lactate Dehydrogenase 601 H C-Reactive Protein 2.70 H Total Protein Albumin 2.9 L Triglycerides Arterial Blood Glucose Arterial Blood Ionized Calcium Urine WBC (Auto) Coronavirus (PCR) SARS-CoV-2 IgG Ab 05/17/20 05/18/20 05/20/20 05:50 12:22 08:16 WBC RBC Hgb Hct MCV 98 H MCH 33 H MCHC RDW Lymph % (Auto) 8.0 L Lymph # (Auto) 0.8 L Seg Neutrophils % 89.3 H Seg Neuts % (Manual) Lymphocytes % (Manual) Seg Neutrophils # 8.8 H Seg Neutrophils # Man Lymphocytes # (Manual) D-Dimer 1887.82 H ABG pH POC ABG pCO2 POC ABG pO2 ABG pO2 ABG HCO3 ABG O2 Saturation ABG Base Excess ABG Hemoglobin ABG Oxyhemoglobin ABG Sodium ABG Potassium ABG Chloride ABG Glucose Oxyhemoglobin Sodium Potassium Chloride Carbon Dioxide BUN Creatinine Glucose POC Glucose 178 H Lactic Acid Calcium Magnesium Ferritin Total Bilirubin Direct Bilirubin AST ALT Alkaline Phosphatase Lactate Dehydrogenase C-Reactive Protein Total Protein Albumin Triglycerides Arterial Blood Glucose Arterial Blood Ionized Calcium Urine WBC (Auto) Coronavirus (PCR) SARS-CoV-2 IgG Ab 05/20/20 05/20/20 05/21/20 08:16 08:16 21:10 WBC RBC Hgb Hct MCV MCH MCHC RDW Lymph % (Auto) Lymph # (Auto) Seg Neutrophils % Seg Neuts % (Manual) Lymphocytes % (Manual) Seg Neutrophils # Seg Neutrophils # Man Lymphocytes # (Manual) D-Dimer ABG pH 7.483 H POC ABG pCO2 POC ABG pO2 ABG pO2 50.0 L ABG HCO3 27.0 H ABG O2 Saturation 86.2 L ABG Base Excess 3.7 H ABG Hemoglobin ABG Oxyhemoglobin ABG Sodium ABG Potassium ABG Chloride ABG Glucose Oxyhemoglobin 84.2 L Sodium Potassium Chloride Carbon Dioxide BUN Creatinine Glucose POC Glucose Lactic Acid Calcium Magnesium Ferritin 1960.0 H Total Bilirubin Direct Bilirubin AST ALT Alkaline Phosphatase Lactate Dehydrogenase 705 H C-Reactive Protein 3.10 H Total Protein Albumin Triglycerides Arterial Blood Glucose Arterial Blood Ionized Calcium Urine WBC (Auto) Coronavirus (PCR) SARS-CoV-2 IgG Ab 05/22/20 05/22/20 05/22/20 04:01 07:53 07:53 WBC 19.2 H RBC Hgb Hct MCV 98 H MCH 34 H MCHC RDW Lymph % (Auto) Lymph # (Auto) Seg Neutrophils % Seg Neuts % (Manual) 96.0 H Lymphocytes % (Manual) 1.0 L Seg Neutrophils # Seg Neutrophils # Man 18.4 H Lymphocytes # (Manual) 0.2 L D-Dimer ABG pH POC ABG pCO2 53.8 H POC ABG pO2 125.5 H ABG pO2 ABG HCO3 ABG O2 Saturation ABG Base Excess ABG Hemoglobin ABG Oxyhemoglobin ABG Sodium 131.8 L ABG Potassium 4.8 H ABG Chloride 94.0 L ABG Glucose 163 H Oxyhemoglobin Sodium 131 L Potassium Chloride 93.4 L Carbon Dioxide BUN 40 H Creatinine Glucose 176 H POC Glucose Lactic Acid Calcium Magnesium 2.70 H Ferritin Total Bilirubin 1.80 H Direct Bilirubin AST 45 H ALT 116 H Alkaline Phosphatase 181 H Lactate Dehydrogenase C-Reactive Protein Total Protein Albumin 2.6 L Triglycerides Arterial Blood Glucose 163 H Arterial Blood Ionized Calcium 4.5 L Urine WBC (Auto) Coronavirus (PCR) SARS-CoV-2 IgG Ab 05/23/20 05/24/20 05/24/20 04:17 03:07 04:08 WBC RBC Hgb Hct MCV MCH MCHC RDW Lymph % (Auto) Lymph # (Auto) Seg Neutrophils % Seg Neuts % (Manual) Lymphocytes % (Manual) Seg Neutrophils # Seg Neutrophils # Man Lymphocytes # (Manual) D-Dimer ABG pH 7.328 L POC ABG pCO2 POC ABG pO2 ABG pO2 72.8 L 73.4 L ABG HCO3 31.0 H 34.0 H ABG O2 Saturation 93.5 L ABG Base Excess 3.5 H 7.7 H ABG Hemoglobin 13.3 L 12.1 L ABG Oxyhemoglobin ABG Sodium ABG Potassium ABG Chloride ABG Glucose Oxyhemoglobin 91.5 L 94.3 L Sodium Potassium Chloride Carbon Dioxide BUN Creatinine Glucose POC Glucose 155 H Lactic Acid Calcium Magnesium Ferritin Total Bilirubin Direct Bilirubin AST ALT Alkaline Phosphatase Lactate Dehydrogenase C-Reactive Protein Total Protein Albumin Triglycerides Arterial Blood Glucose Arterial Blood Ionized Calcium Urine WBC (Auto) Coronavirus (PCR) SARS-CoV-2 IgG Ab 05/24/20 05/24/20 05/24/20 09:33 12:21 17:52 WBC RBC Hgb Hct MCV MCH MCHC RDW Lymph % (Auto) Lymph # (Auto) Seg Neutrophils % Seg Neuts % (Manual) Lymphocytes % (Manual) Seg Neutrophils # Seg Neutrophils # Man Lymphocytes # (Manual) D-Dimer ABG pH POC ABG pCO2 POC ABG pO2 ABG pO2 ABG HCO3 ABG O2 Saturation ABG Base Excess ABG Hemoglobin ABG Oxyhemoglobin ABG Sodium ABG Potassium ABG Chloride ABG Glucose Oxyhemoglobin Sodium Potassium Chloride Carbon Dioxide 34 H D BUN 28 H Creatinine 0.7 L Glucose 168 H POC Glucose 173 H 164 H Lactic Acid Calcium Magnesium Ferritin Total Bilirubin Direct Bilirubin AST ALT Alkaline Phosphatase Lactate Dehydrogenase C-Reactive Protein Total Protein Albumin Triglycerides Arterial Blood Glucose Arterial Blood Ionized Calcium Urine WBC (Auto) Coronavirus (PCR) SARS-CoV-2 IgG Ab 05/24/20 05/25/20 05/25/20 23:47 04:29 05:46 WBC RBC Hgb Hct MCV MCH MCHC RDW Lymph % (Auto) Lymph # (Auto) Seg Neutrophils % Seg Neuts % (Manual) Lymphocytes % (Manual) Seg Neutrophils # Seg Neutrophils # Man Lymphocytes # (Manual) D-Dimer ABG pH POC ABG pCO2 68.6 H POC ABG pO2 ABG pO2 ABG HCO3 ABG O2 Saturation ABG Base Excess ABG Hemoglobin ABG Oxyhemoglobin ABG Sodium ABG Potassium 4.7 H ABG Chloride ABG Glucose 226 H Oxyhemoglobin Sodium Potassium Chloride Carbon Dioxide BUN Creatinine Glucose POC Glucose 171 H 201 H Lactic Acid Calcium Magnesium Ferritin Total Bilirubin Direct Bilirubin AST ALT Alkaline Phosphatase Lactate Dehydrogenase C-Reactive Protein Total Protein Albumin Triglycerides Arterial Blood Glucose 226 H Arterial Blood Ionized Calcium Urine WBC (Auto) Coronavirus (PCR) SARS-CoV-2 IgG Ab 05/25/20 05/25/20 05/25/20 08:37 08:37 12:38 WBC 12.0 H RBC 3.64 L Hgb Hct MCV 99 H MCH 33 H MCHC RDW Lymph % (Auto) Lymph # (Auto) Seg Neutrophils % Seg Neuts % (Manual) Lymphocytes % (Manual) Seg Neutrophils # Seg Neutrophils # Man Lymphocytes # (Manual) D-Dimer ABG pH POC ABG pCO2 POC ABG pO2 ABG pO2 ABG HCO3 ABG O2 Saturation ABG Base Excess ABG Hemoglobin ABG Oxyhemoglobin ABG Sodium ABG Potassium ABG Chloride ABG Glucose Oxyhemoglobin Sodium Potassium Chloride 97.3 L Carbon Dioxide 35 H BUN 25 H Creatinine 0.7 L Glucose 191 H POC Glucose 182 H Lactic Acid Calcium Magnesium Ferritin Total Bilirubin Direct Bilirubin AST ALT Alkaline Phosphatase Lactate Dehydrogenase C-Reactive Protein Total Protein Albumin Triglycerides Arterial Blood Glucose Arterial Blood Ionized Calcium Urine WBC (Auto) Coronavirus (PCR) SARS-CoV-2 IgG Ab 05/25/20 05/26/20 05/26/20 18:16 00:06 04:50 WBC RBC Hgb Hct MCV MCH MCHC RDW Lymph % (Auto) Lymph # (Auto) Seg Neutrophils % Seg Neuts % (Manual) Lymphocytes % (Manual) Seg Neutrophils # Seg Neutrophils # Man Lymphocytes # (Manual) D-Dimer ABG pH POC ABG pCO2 POC ABG pO2 ABG pO2 221.5 H ABG HCO3 40.4 H ABG O2 Saturation 99.3 H ABG Base Excess 12.8 H ABG Hemoglobin 10.4 L ABG Oxyhemoglobin ABG Sodium ABG Potassium ABG Chloride ABG Glucose Oxyhemoglobin Sodium Potassium Chloride Carbon Dioxide BUN Creatinine Glucose POC Glucose 176 H 152 H Lactic Acid Calcium Magnesium Ferritin Total Bilirubin Direct Bilirubin AST ALT Alkaline Phosphatase Lactate Dehydrogenase C-Reactive Protein Total Protein Albumin Triglycerides Arterial Blood Glucose Arterial Blood Ionized Calcium Urine WBC (Auto) Coronavirus (PCR) SARS-CoV-2 IgG Ab 05/26/20 05/26/20 05/26/20 06:11 07:51 07:51 WBC 13.4 H RBC 3.64 L Hgb Hct MCV 98 H MCH 33 H MCHC RDW Lymph % (Auto) Lymph # (Auto) Seg Neutrophils % Seg Neuts % (Manual) Lymphocytes % (Manual) Seg Neutrophils # Seg Neutrophils # Man Lymphocytes # (Manual) D-Dimer ABG pH POC ABG pCO2 POC ABG pO2 ABG pO2 ABG HCO3 ABG O2 Saturation ABG Base Excess ABG Hemoglobin ABG Oxyhemoglobin ABG Sodium ABG Potassium ABG Chloride ABG Glucose Oxyhemoglobin Sodium Potassium Chloride 96.6 L Carbon Dioxide 39 H BUN 29 H Creatinine 0.7 L Glucose 174 H POC Glucose 165 H Lactic Acid Calcium Magnesium Ferritin Total Bilirubin Direct Bilirubin AST ALT Alkaline Phosphatase Lactate Dehydrogenase C-Reactive Protein Total Protein Albumin Triglycerides Arterial Blood Glucose Arterial Blood Ionized Calcium Urine WBC (Auto) Coronavirus (PCR) SARS-CoV-2 IgG Ab 05/26/20 05/27/20 05/27/20 23:23 03:43 05:29 WBC RBC Hgb Hct MCV MCH MCHC RDW Lymph % (Auto) Lymph # (Auto) Seg Neutrophils % Seg Neuts % (Manual) Lymphocytes % (Manual) Seg Neutrophils # Seg Neutrophils # Man Lymphocytes # (Manual) D-Dimer ABG pH 7.480 H POC ABG pCO2 52.4 H POC ABG pO2 61.4 L ABG pO2 ABG HCO3 ABG O2 Saturation ABG Base Excess ABG Hemoglobin ABG Oxyhemoglobin ABG Sodium 134.9 L ABG Potassium ABG Chloride 95.0 L ABG Glucose 221 H Oxyhemoglobin Sodium Potassium Chloride Carbon Dioxide BUN Creatinine Glucose POC Glucose 169 H 227 H Lactic Acid Calcium Magnesium Ferritin Total Bilirubin Direct Bilirubin AST ALT Alkaline Phosphatase Lactate Dehydrogenase C-Reactive Protein Total Protein Albumin Triglycerides Arterial Blood Glucose 221 H Arterial Blood Ionized Calcium 4.5 L Urine WBC (Auto) Coronavirus (PCR) SARS-CoV-2 IgG Ab 05/27/20 05/27/20 05/27/20 07:19 12:18 13:50 WBC RBC Hgb Hct MCV MCH MCHC RDW Lymph % (Auto) Lymph # (Auto) Seg Neutrophils % Seg Neuts % (Manual) Lymphocytes % (Manual) Seg Neutrophils # Seg Neutrophils # Man Lymphocytes # (Manual) D-Dimer ABG pH POC ABG pCO2 POC ABG pO2 ABG pO2 ABG HCO3 ABG O2 Saturation ABG Base Excess ABG Hemoglobin ABG Oxyhemoglobin ABG Sodium ABG Potassium ABG Chloride ABG Glucose Oxyhemoglobin Sodium Potassium Chloride Carbon Dioxide BUN Creatinine Glucose POC Glucose 114 H 148 H Lactic Acid Calcium Magnesium Ferritin Total Bilirubin Direct Bilirubin AST ALT Alkaline Phosphatase Lactate Dehydrogenase C-Reactive Protein Total Protein Albumin Triglycerides 247 H Arterial Blood Glucose Arterial Blood Ionized Calcium Urine WBC (Auto) Coronavirus (PCR) SARS-CoV-2 IgG Ab 05/28/20 05/28/20 05/28/20 00:13 04:16 05:22 WBC RBC Hgb Hct MCV MCH MCHC RDW Lymph % (Auto) Lymph # (Auto) Seg Neutrophils % Seg Neuts % (Manual) Lymphocytes % (Manual) Seg Neutrophils # Seg Neutrophils # Man Lymphocytes # (Manual) D-Dimer ABG pH POC ABG pCO2 64.4 H POC ABG pO2 60.5 L ABG pO2 ABG HCO3 ABG O2 Saturation ABG Base Excess ABG Hemoglobin ABG Oxyhemoglobin ABG Sodium ABG Potassium ABG Chloride 95.0 L ABG Glucose 209 H Oxyhemoglobin Sodium Potassium Chloride Carbon Dioxide BUN Creatinine Glucose POC Glucose 155 H 186 H Lactic Acid Calcium Magnesium Ferritin Total Bilirubin Direct Bilirubin AST ALT Alkaline Phosphatase Lactate Dehydrogenase C-Reactive Protein Total Protein Albumin Triglycerides Arterial Blood Glucose 209 H Arterial Blood Ionized Calcium Urine WBC (Auto) Coronavirus (PCR) SARS-CoV-2 IgG Ab 05/28/20 05/28/20 05/29/20 12:45 17:39 00:37 WBC RBC Hgb Hct MCV MCH MCHC RDW Lymph % (Auto) Lymph # (Auto) Seg Neutrophils % Seg Neuts % (Manual) Lymphocytes % (Manual) Seg Neutrophils # Seg Neutrophils # Man Lymphocytes # (Manual) D-Dimer ABG pH POC ABG pCO2 POC ABG pO2 ABG pO2 ABG HCO3 ABG O2 Saturation ABG Base Excess ABG Hemoglobin ABG Oxyhemoglobin ABG Sodium ABG Potassium ABG Chloride ABG Glucose Oxyhemoglobin Sodium Potassium Chloride Carbon Dioxide BUN Creatinine Glucose POC Glucose 143 H 164 H 221 H Lactic Acid Calcium Magnesium Ferritin Total Bilirubin Direct Bilirubin AST ALT Alkaline Phosphatase Lactate Dehydrogenase C-Reactive Protein Total Protein Albumin Triglycerides Arterial Blood Glucose Arterial Blood Ionized Calcium Urine WBC (Auto) Coronavirus (PCR) SARS-CoV-2 IgG Ab 05/29/20 05/29/20 05/29/20 04:15 05:33 12:34 WBC RBC Hgb Hct MCV MCH MCHC RDW Lymph % (Auto) Lymph # (Auto) Seg Neutrophils % Seg Neuts % (Manual) Lymphocytes % (Manual) Seg Neutrophils # Seg Neutrophils # Man Lymphocytes # (Manual) D-Dimer ABG pH 7.463 H POC ABG pCO2 56.3 H POC ABG pO2 81.2 L ABG pO2 ABG HCO3 ABG O2 Saturation ABG Base Excess ABG Hemoglobin ABG Oxyhemoglobin ABG Sodium ABG Potassium ABG Chloride 96.0 L ABG Glucose 194 H Oxyhemoglobin Sodium Potassium Chloride Carbon Dioxide BUN Creatinine Glucose POC Glucose 133 H 221 H Lactic Acid Calcium Magnesium Ferritin Total Bilirubin Direct Bilirubin AST ALT Alkaline Phosphatase Lactate Dehydrogenase C-Reactive Protein Total Protein Albumin Triglycerides Arterial Blood Glucose 194 H Arterial Blood Ionized Calcium 4.5 L Urine WBC (Auto) Coronavirus (PCR) SARS-CoV-2 IgG Ab 05/29/20 05/30/20 05/30/20 18:07 00:12 05:38 WBC RBC Hgb Hct MCV MCH MCHC RDW Lymph % (Auto) Lymph # (Auto) Seg Neutrophils % Seg Neuts % (Manual) Lymphocytes % (Manual) Seg Neutrophils # Seg Neutrophils # Man Lymphocytes # (Manual) D-Dimer ABG pH POC ABG pCO2 POC ABG pO2 ABG pO2 ABG HCO3 ABG O2 Saturation ABG Base Excess ABG Hemoglobin ABG Oxyhemoglobin ABG Sodium ABG Potassium ABG Chloride ABG Glucose Oxyhemoglobin Sodium Potassium Chloride Carbon Dioxide BUN Creatinine Glucose POC Glucose 162 H 190 H 208 H Lactic Acid Calcium Magnesium Ferritin Total Bilirubin Direct Bilirubin AST ALT Alkaline Phosphatase Lactate Dehydrogenase C-Reactive Protein Total Protein Albumin Triglycerides Arterial Blood Glucose Arterial Blood Ionized Calcium Urine WBC (Auto) Coronavirus (PCR) SARS-CoV-2 IgG Ab 05/30/20 05/30/20 05/30/20 09:30 11:35 11:54 WBC 12.4 H RBC 3.48 L Hgb 11.3 L Hct 34.6 L MCV 99 H MCH 33 H MCHC RDW Lymph % (Auto) Lymph # (Auto) Seg Neutrophils % Seg Neuts % (Manual) Lymphocytes % (Manual) Seg Neutrophils # Seg Neutrophils # Man Lymphocytes # (Manual) D-Dimer ABG pH 7.455 H POC ABG pCO2 57.5 H POC ABG pO2 81.5 L ABG pO2 ABG HCO3 ABG O2 Saturation ABG Base Excess ABG Hemoglobin ABG Oxyhemoglobin ABG Sodium ABG Potassium ABG Chloride 96.0 L ABG Glucose 204 H Oxyhemoglobin Sodium Potassium Chloride Carbon Dioxide BUN Creatinine Glucose POC Glucose 183 H Lactic Acid Calcium Magnesium Ferritin Total Bilirubin Direct Bilirubin AST ALT Alkaline Phosphatase Lactate Dehydrogenase C-Reactive Protein Total Protein Albumin Triglycerides Arterial Blood Glucose 204 H Arterial Blood Ionized Calcium Urine WBC (Auto) Coronavirus (PCR) SARS-CoV-2 IgG Ab 05/30/20 05/31/20 05/31/20 18:01 00:10 03:22 WBC RBC Hgb Hct MCV MCH MCHC RDW Lymph % (Auto) Lymph # (Auto) Seg Neutrophils % Seg Neuts % (Manual) Lymphocytes % (Manual) Seg Neutrophils # Seg Neutrophils # Man Lymphocytes # (Manual) D-Dimer ABG pH POC ABG pCO2 60.4 H POC ABG pO2 71.5 L ABG pO2 ABG HCO3 ABG O2 Saturation ABG Base Excess ABG Hemoglobin ABG Oxyhemoglobin ABG Sodium ABG Potassium ABG Chloride 96.0 L ABG Glucose 169 H Oxyhemoglobin Sodium Potassium Chloride Carbon Dioxide BUN Creatinine Glucose POC Glucose 184 H 135 H Lactic Acid Calcium Magnesium Ferritin Total Bilirubin Direct Bilirubin AST ALT Alkaline Phosphatase Lactate Dehydrogenase C-Reactive Protein Total Protein Albumin Triglycerides Arterial Blood Glucose 169 H Arterial Blood Ionized Calcium 4.5 L Urine WBC (Auto) Coronavirus (PCR) SARS-CoV-2 IgG Ab 05/31/20 05/31/20 05/31/20 05:24 11:18 14:41 WBC RBC Hgb Hct MCV MCH MCHC RDW Lymph % (Auto) Lymph # (Auto) Seg Neutrophils % Seg Neuts % (Manual) Lymphocytes % (Manual) Seg Neutrophils # Seg Neutrophils # Man Lymphocytes # (Manual) D-Dimer ABG pH POC ABG pCO2 POC ABG pO2 ABG pO2 ABG HCO3 ABG O2 Saturation ABG Base Excess ABG Hemoglobin ABG Oxyhemoglobin ABG Sodium ABG Potassium ABG Chloride ABG Glucose Oxyhemoglobin Sodium Potassium Chloride 96.8 L Carbon Dioxide 37 H BUN 31 H Creatinine 0.6 L Glucose 213 H POC Glucose 164 H 208 H Lactic Acid Calcium Magnesium Ferritin Total Bilirubin Direct Bilirubin AST ALT Alkaline Phosphatase Lactate Dehydrogenase C-Reactive Protein Total Protein Albumin Triglycerides Arterial Blood Glucose Arterial Blood Ionized Calcium Urine WBC (Auto) Coronavirus (PCR) SARS-CoV-2 IgG Ab 05/31/20 05/31/20 06/01/20 17:37 23:47 03:48 WBC RBC Hgb Hct MCV MCH MCHC RDW Lymph % (Auto) Lymph # (Auto) Seg Neutrophils % Seg Neuts % (Manual) Lymphocytes % (Manual) Seg Neutrophils # Seg Neutrophils # Man Lymphocytes # (Manual) D-Dimer ABG pH POC ABG pCO2 59.7 H POC ABG pO2 73.9 L ABG pO2 ABG HCO3 ABG O2 Saturation ABG Base Excess ABG Hemoglobin ABG Oxyhemoglobin ABG Sodium ABG Potassium ABG Chloride 95.0 L ABG Glucose 256 H Oxyhemoglobin Sodium Potassium Chloride Carbon Dioxide BUN Creatinine Glucose POC Glucose 168 H 178 H Lactic Acid Calcium Magnesium Ferritin Total Bilirubin Direct Bilirubin AST ALT Alkaline Phosphatase Lactate Dehydrogenase C-Reactive Protein Total Protein Albumin Triglycerides Arterial Blood Glucose 256 H Arterial Blood Ionized Calcium Urine WBC (Auto) Coronavirus (PCR) SARS-CoV-2 IgG Ab 06/01/20 06/01/20 06/01/20 05:01 07:47 07:47 WBC 14.4 H RBC 3.46 L Hgb 11.1 L Hct 34.3 L MCV 99 H MCH MCHC RDW Lymph % (Auto) Lymph # (Auto) Seg Neutrophils % Seg Neuts % (Manual) 86.0 H Lymphocytes % (Manual) 9.0 L Seg Neutrophils # Seg Neutrophils # Man 12.4 H Lymphocytes # (Manual) D-Dimer ABG pH POC ABG pCO2 POC ABG pO2 ABG pO2 ABG HCO3 ABG O2 Saturation ABG Base Excess ABG Hemoglobin ABG Oxyhemoglobin ABG Sodium ABG Potassium ABG Chloride ABG Glucose Oxyhemoglobin Sodium Potassium Chloride Carbon Dioxide BUN Creatinine Glucose POC Glucose 197 H Lactic Acid Calcium Magnesium Ferritin Total Bilirubin Direct Bilirubin AST ALT Alkaline Phosphatase Lactate Dehydrogenase C-Reactive Protein Total Protein Albumin Triglycerides 244 H Arterial Blood Glucose Arterial Blood Ionized Calcium Urine WBC (Auto) Coronavirus (PCR) SARS-CoV-2 IgG Ab 06/01/20 06/01/20 06/01/20 07:47 11:46 18:15 WBC RBC Hgb Hct MCV MCH MCHC RDW Lymph % (Auto) Lymph # (Auto) Seg Neutrophils % Seg Neuts % (Manual) Lymphocytes % (Manual) Seg Neutrophils # Seg Neutrophils # Man Lymphocytes # (Manual) D-Dimer ABG pH POC ABG pCO2 POC ABG pO2 ABG pO2 ABG HCO3 ABG O2 Saturation ABG Base Excess ABG Hemoglobin ABG Oxyhemoglobin ABG Sodium ABG Potassium ABG Chloride ABG Glucose Oxyhemoglobin Sodium Potassium Chloride 95.4 L Carbon Dioxide 35 H BUN 30 H Creatinine 0.5 L Glucose 214 H POC Glucose 181 H 221 H Lactic Acid Calcium Magnesium Ferritin Total Bilirubin Direct Bilirubin AST 54 H ALT 235 H Alkaline Phosphatase Lactate Dehydrogenase C-Reactive Protein Total Protein Albumin 2.9 L Triglycerides Arterial Blood Glucose Arterial Blood Ionized Calcium Urine WBC (Auto) Coronavirus (PCR) SARS-CoV-2 IgG Ab 06/01/20 06/02/20 06/02/20 23:12 04:00 05:31 WBC RBC Hgb Hct MCV MCH MCHC RDW Lymph % (Auto) Lymph # (Auto) Seg Neutrophils % Seg Neuts % (Manual) Lymphocytes % (Manual) Seg Neutrophils # Seg Neutrophils # Man Lymphocytes # (Manual) D-Dimer ABG pH 7.465 H POC ABG pCO2 POC ABG pO2 ABG pO2 203.4 H ABG HCO3 41.2 H ABG O2 Saturation 99.3 H ABG Base Excess 15.1 H ABG Hemoglobin 11.5 L ABG Oxyhemoglobin ABG Sodium ABG Potassium ABG Chloride ABG Glucose Oxyhemoglobin Sodium Potassium Chloride Carbon Dioxide BUN Creatinine Glucose POC Glucose 197 H 184 H Lactic Acid Calcium Magnesium Ferritin Total Bilirubin Direct Bilirubin AST ALT Alkaline Phosphatase Lactate Dehydrogenase C-Reactive Protein Total Protein Albumin Triglycerides Arterial Blood Glucose Arterial Blood Ionized Calcium Urine WBC (Auto) Coronavirus (PCR) SARS-CoV-2 IgG Ab 06/02/20 06/02/20 06/02/20 11:49 18:06 23:00 WBC RBC Hgb Hct MCV MCH MCHC RDW Lymph % (Auto) Lymph # (Auto) Seg Neutrophils % Seg Neuts % (Manual) Lymphocytes % (Manual) Seg Neutrophils # Seg Neutrophils # Man Lymphocytes # (Manual) D-Dimer ABG pH POC ABG pCO2 POC ABG pO2 ABG pO2 ABG HCO3 ABG O2 Saturation ABG Base Excess ABG Hemoglobin ABG Oxyhemoglobin ABG Sodium ABG Potassium ABG Chloride ABG Glucose Oxyhemoglobin Sodium Potassium Chloride Carbon Dioxide BUN Creatinine Glucose POC Glucose 195 H 177 H 228 H Lactic Acid Calcium Magnesium Ferritin Total Bilirubin Direct Bilirubin AST ALT Alkaline Phosphatase Lactate Dehydrogenase C-Reactive Protein Total Protein Albumin Triglycerides Arterial Blood Glucose Arterial Blood Ionized Calcium Urine WBC (Auto) Coronavirus (PCR) SARS-CoV-2 IgG Ab 06/03/20 06/03/20 06/03/20 03:58 05:19 12:21 WBC RBC Hgb Hct MCV MCH MCHC RDW Lymph % (Auto) Lymph # (Auto) Seg Neutrophils % Seg Neuts % (Manual) Lymphocytes % (Manual) Seg Neutrophils # Seg Neutrophils # Man Lymphocytes # (Manual) D-Dimer ABG pH POC ABG pCO2 POC ABG pO2 ABG pO2 171.0 H ABG HCO3 42.8 H ABG O2 Saturation ABG Base Excess 15.6 H ABG Hemoglobin 12.3 L ABG Oxyhemoglobin ABG Sodium ABG Potassium ABG Chloride ABG Glucose Oxyhemoglobin Sodium Potassium Chloride Carbon Dioxide BUN Creatinine Glucose POC Glucose 122 H 207 H Lactic Acid Calcium Magnesium Ferritin Total Bilirubin Direct Bilirubin AST ALT Alkaline Phosphatase Lactate Dehydrogenase C-Reactive Protein Total Protein Albumin Triglycerides Arterial Blood Glucose Arterial Blood Ionized Calcium Urine WBC (Auto) Coronavirus (PCR) SARS-CoV-2 IgG Ab 06/03/20 06/03/20 06/04/20 17:27 23:50 03:55 WBC RBC Hgb Hct MCV MCH MCHC RDW Lymph % (Auto) Lymph # (Auto) Seg Neutrophils % Seg Neuts % (Manual) Lymphocytes % (Manual) Seg Neutrophils # Seg Neutrophils # Man Lymphocytes # (Manual) D-Dimer ABG pH POC ABG pCO2 POC ABG pO2 ABG pO2 117.2 H ABG HCO3 42.4 H ABG O2 Saturation ABG Base Excess 15.3 H ABG Hemoglobin 10.5 L ABG Oxyhemoglobin ABG Sodium ABG Potassium ABG Chloride ABG Glucose Oxyhemoglobin Sodium Potassium Chloride Carbon Dioxide BUN Creatinine Glucose POC Glucose 157 H 214 H Lactic Acid Calcium Magnesium Ferritin Total Bilirubin Direct Bilirubin AST ALT Alkaline Phosphatase Lactate Dehydrogenase C-Reactive Protein Total Protein Albumin Triglycerides Arterial Blood Glucose Arterial Blood Ionized Calcium Urine WBC (Auto) Coronavirus (PCR) SARS-CoV-2 IgG Ab 06/04/20 06/04/20 05:49 11:41 WBC RBC Hgb Hct MCV MCH MCHC RDW Lymph % (Auto) Lymph # (Auto) Seg Neutrophils % Seg Neuts % (Manual) Lymphocytes % (Manual) Seg Neutrophils # Seg Neutrophils # Man Lymphocytes # (Manual) D-Dimer ABG pH POC ABG pCO2 POC ABG pO2 ABG pO2 ABG HCO3 ABG O2 Saturation ABG Base Excess ABG Hemoglobin ABG Oxyhemoglobin ABG Sodium ABG Potassium ABG Chloride ABG Glucose Oxyhemoglobin Sodium Potassium Chloride Carbon Dioxide BUN Creatinine Glucose POC Glucose 149 H 233 H Lactic Acid Calcium Magnesium Ferritin Total Bilirubin Direct Bilirubin AST ALT Alkaline Phosphatase Lactate Dehydrogenase C-Reactive Protein Total Protein Albumin Triglycerides Arterial Blood Glucose Arterial Blood Ionized Calcium Urine WBC (Auto) Coronavirus (PCR) SARS-CoV-2 IgG Ab Allied health notes reviewed: nursing
[2020-06-04] MEDS ORDERED: SODIUM CHLORIDE 0.9% 500 ML 500 ML IV ONE (16:30)
--- NOTE | 2020-06-04 16:31 | Progress Note ---
Assessment and Plan Assessment and Plan Patient intubated last night because of persistent hypoxia --Elevated D-dimers; on full dose anticoagulation However ID requested to get CTA chest, patient is unstable to go for CT As he is requiring high flow oxygen. -- Acute hypoxemic respiratory failure; Patient intubated and on vent support --Elevated D-dimers; check CTA to rule out PE Lower extremity venous Doppler to rule out DVT Patient is already on full dose anticoagulation per COVID-19 protocol -- Novel coronavirus infection with Bilateral pneumonia Coronavirus protocol: IV steroid therapy, IV remdesivir, isolation precautions, contact precautions, prone positioning while in bed, pulmonary toilet. consulted ID --Severe sepsis, due to COVID 19 PNA cont to treat for COVID -- Acute kidney injury (SEN) , likely vasomotor nephropathy Resolved, IV fluids, avoid nephrotoxins -- Alcohol dependence; no episodes of withdrawal symptoms Thiamine, folic acid, multivitamin, CIWA protocol. -- Elevated liver function tests Suspected secondary to alcoholic liver disease. Supportive care, alcohol cessation, patient counseled. -- DVT prophylaxis prophylactic AC with lovenox for elevated D-dimer We will closely monitor patient and adjust management as needed Patient has severe Covid pneumonia, severe hypoxia Critically ill very poor prognosis Full CODE STATUS The high probability of a clinically significant, sudden or life threatening deterioration of the [Covid pneumonia, ID, respiratory, liver] system(s) required my full and direct attention, intervention and personal management. The aggregate critical care time was [32] minutes. This time is in addition to time spent performing reported procedures but includes the following: [x] Data Review and interpretation [x] Patient assessment and monitoring of vital signs [x] Documentation [x] Medication orders and management. Subjective Date of service: 06/04/20 Principal diagnosis: Ac hypoxemic resp failure; COVID-19; Severe Sepsis; Shaggy PNA; Alcohol Abuse Interval history: Brief history; 50 YO Male with Obesity, ETOH Dependence presents to ED for evaluation for shortness of breath, generalized weakness, fatigue, malaise, body aches, decreased exercise tolerance over the past 5 days. EMS was notified and upon arrival the patient was found to be in distress with a pulse oximetry of 76% on room air as well as fever to 103 F. In the ER chest x-ray and was found to have bilateral pneumonia. Patient admitted to medical floor and initiated on pneumonia protocol as well as COVID-19 protocol. Patient severe Covid pneumonia, with persistent severe hypoxemia requiring very high flow oxygen Today on continuous BiPAP, patient is in mild distress, critically ill with very poor prognosis. Patient was on high flow oxygen but could not be maintained above 90 hence patient intubated last night electively 05/17/2020; patient with severe COVID-19 pneumonia, in isolation room Patient is on high flow oxygen, and BiPAP 05/18/20; patient feels slightly better still hypoxic, requiring continuous high flow oxygen and BiPAP Respiratory team trying to wean 05/19/20; patient is severely hypoxemic requiring continuous BiPAP today, complains of generalized weakness Trying to wean off high flow oxygen, patient is in isolation 05/20/2020; patient remains on high flow oxygen/BiPAP/100% nonrebreather. Still is hypoxemic Has sinus tachycardia patient in mild distress Wean off high flow oxygen as tolerated, pulmonary critical following 05/21/20; patient is critically ill, on continuous BiPAP remains hypoxemic in mild distress Patient has severe Covid Pneumonia with persistent hypoxemia and poor prognosis 05/22/2020 Patient was intubated last night because of persistent hypoxemia Objective - Constitutional Vitals: Vital Signs - 12hr 06/04/20 06/04/20 06/04/20 05:00 06:00 07:00 Temperature Pulse Rate 99 H 95 H 88 Pulse Rate [ From Monitor] Respiratory 15 19 20 Rate Blood Pressure 98/51 99/58 81/51 O2 Sat by Pulse 95 97 96 Oximetry 06/04/20 06/04/20 06/04/20 08:00 08:05 09:00 Temperature 98.2 F Pulse Rate 86 107 H 104 H Pulse Rate [ 107 H From Monitor] Respiratory 20 18 Rate Blood Pressure 106/52 106/52 126/72 O2 Sat by Pulse 95 97 97 Oximetry 06/04/20 06/04/20 06/04/20 09:38 10:00 11:00 Temperature Pulse Rate 113 H 99 H 113 H Pulse Rate [ From Monitor] Respiratory 17 19 Rate Blood Pressure 123/68 126/62 129/79 O2 Sat by Pulse 92 96 Oximetry 06/04/20 06/04/20 06/04/20 11:18 12:00 13:00 Temperature 98.5 F Pulse Rate 107 H 106 H 109 H Pulse Rate [ 128 H From Monitor] Respiratory 15 20 Rate Blood Pressure 114/71 97/70 148/72 O2 Sat by Pulse 100 100 91 Oximetry 06/04/20 06/04/20 06/04/20 14:00 14:49 15:00 Temperature Pulse Rate 107 H 103 H 102 H Pulse Rate [ From Monitor] Respiratory 14 15 Rate Blood Pressure 93/53 73/48 81/50 O2 Sat by Pulse 95 95 94 Oximetry 06/04/20 16:00 Temperature Pulse Rate 98 H Pulse Rate [ 97 H From Monitor] Respiratory 17 Rate Blood Pressure 94/53 O2 Sat by Pulse 96 Oximetry General appearance: Present: no acute distress, well-nourished - EENT Eyes: PERRL, EOM intact ENT: hearing intact, clear oral mucosa Ears: bilateral: normal - Neck Neck: supple, normal ROM - Respiratory Respiratory effort: normal Respiratory: bilateral: CTA - Breasts Breasts: normal - Cardiovascular Rhythm: regular Heart Sounds: Present: S1 & S2. Absent: gallop, rub Extremities: pulses intact, No edema, normal color, Full ROM - Gastrointestinal General gastrointestinal: Present: soft, non-tender, non-distended, normal bowel sounds - Genitourinary Male genitourinary: normal - Integumentary Integumentary: clear, warm, dry - Musculoskeletal Musculoskeletal: 1, strength equal bilaterally - Neurologic Neurologic: moves all extremities - Psychiatric Psychiatric: memory intact, appropriate mood/affect, intact judgment & insight - Labs CBC & Chem 7: 06/01/20 07:47 06/01/20 07:47 Labs: Abnormal lab results 06/03/20 06/03/20 06/04/20 Range/Units 17:27 23:50 03:55 ABG pO2 117.2 H (80.0-90.0) mm Hg ABG HCO3 42.4 H (20.0-26.0) mmol/L ABG Base Excess 15.3 H (-2.0-3.0) mmol/L ABG Hemoglobin 10.5 L (14.0-18.0) gm/dl POC Glucose 157 H 214 H (70-105) mg/dL 06/04/20 06/04/20 Range/Units 05:49 11:41 ABG pO2 (80.0-90.0) mm Hg ABG HCO3 (20.0-26.0) mmol/L ABG Base Excess (-2.0-3.0) mmol/L ABG Hemoglobin (14.0-18.0) gm/dl POC Glucose 149 H 233 H (70-105) mg/dL
--- NOTE | 2020-06-04 18:32 | Procedure Note ---
Date of procedure: 06/04/20 Pre-op diagnosis: Sepsis, respiratory failure Post-op diagnosis: same Procedure: Right internal jugular vein central line placement under ultrasound guidance The patient was prepped and draped in the usual sterile fashion. A timeout was taken to verify correct patient, procedure and operative site. Ultrasound was used to localize the right internal jugular vein without difficulty. The Seldinger technique was utilized to access the right internal jugular vein. Under ultrasound guidance a seeker needle was used to access the right internal jugular vein. A guidewire was then placed via the seeker needle into the right internal jugular vein and the seeker needle was removed over the guidewire. A scalpel was used to incise the skin at the insertion site. A dilator was then passed over the guidewire into the right internal jugular vein and subsequently removed. A preflushed triple-lumen catheter was then passed over the guidewire into the right internal jugular vein. All 3 ports flush and draw with ease. A Biopatch was placed at the skin insertion site. The triple-lumen catheter was then sutured in place. A postoperative chest x-ray was ordered. Triple-lumen catheter in good position in the superior vena cava. No pneumothorax. Estimated blood loss: minimal Pathology: none Condition: critical Disposition: ICU
--- NOTE | 2020-06-04 19:16 | XRay Report ---
XR chest 1V ap INDICATION / CLINICAL INFORMATION: CVL placement. COMPARISON: 05/28/2020 FINDINGS: SUPPORT DEVICES: There is a right IJ central venous catheter which terminates in the region of the SV C. Endotracheal tube and enteric catheter are stable. HEART /PULMONARY VASCULATURE: Unchanged LUNGS / PLEURA: Stable bilateral pulmonary airspace opacities. No pleural effusion. No pneumothorax. ADDITIONAL FINDINGS: No significant additional findings. IMPRESSION: Right IJ central venous catheter terminates in the region of the SVC. No pneumothorax or other change in cardiopulmonary findings. Signer Name: Ramón Linder MD Signed: 06/04/2020 7:11 PM Workstation Name: [id number]
[2020-06-04] MEDS: MIDAZOLAM 100 MG in SODIUM CHLORIDE 0.9% 80 ML IV SCH (19:40)
[2020-06-04 19:47] LABS: Blood Urea Nitrogen 27 mg/dL (9-20); Calcium 8.8 mg/dL (8.4-10.2); Hemolysis Index 6
[2020-06-04 19:51] LABS: BUN/Creatinine Ratio 54
[2020-06-04 21:05] LABS: Hematocrit 31.8 % (35.5-45.6); Hemoglobin 10.8 gm/dl (11.8-15.2); Mean Corpuscular HGB Conc 34 % (32-34); Mean Corpuscular Volume 100 fl (84-94); Platelet Count 218 K/mm3 (140-440); Red Blood Count 3.18 M/mm3 (3.65-5.03); Red Cell Distribution Width 14.2 % (13.2-15.2)
[2020-06-04 22:07] LABS: Basophils % (Manual) 0 % (0.0-1.8); Eosinophils % (Manual) 0 % (0.0-4.3); Macrocytosis 1+; Total Cells Counted 100
[2020-06-04] MEDS: POLYETHYLENE GLYCOL 3350 17 GM POWDER PO SCH (23:59)
[2020-06-05] MEDS: fentaNYL DRIP Premix 2,000 MCG/100 ML BAG IV SCH ×5 (04:01→23:23)
[2020-06-05] MEDS: INSULIN LISPRO 100 UNIT/ML VIAL 3 mL SUB-Q SCH ×4 (06:47→17:23)
[2020-06-05] MEDS: methylPREDNISolone Sod Succinate 40 MG/1 ML INJ IV SCH ×2 (06:58→17:18)
[2020-06-05] MEDS: DOCUSATE SODIUM 100 MG/10 ML ORAL LIQD PO SCH ×2 (09:09→22:00)
[2020-06-05] MEDS: FAMOTIDINE 20 MG TAB PO SCH ×2 (09:09→22:00)
[2020-06-05] MEDS: ENOXAPARIN 120 MG/0.8 ML INJ SUB-Q SCH ×2 (09:10→22:00)
[2020-06-05] MEDS: FOLIC ACID 1 MG TAB PO SCH (09:10)
[2020-06-05] MEDS: LORazepam 2 MG/ML VIAL IV PRN ×3 (09:18→22:00)
--- NOTE | 2020-06-05 12:28 | Progress Note ---
Assessment and Plan Acute hypoxemic respiratory failure due to COVID-19 Severe COVID infection Severe Sepsis Bilateral pneumonia Acute kidney injury (SEN) with acute tubular necrosis (ATN)-improving h/o Alcohol dependence Elevated liver function tests probably secondary COVID Continue to wean supplemental oxygen for O2 sats>90% Monitor blood pressure closely while optimizing sedation, if any hypotension, start vasopressor support CXR today Continue to monitor airway pressures - VAP bundle addressed, aspiration precautions HOB >40 - Continue lung protective strategies, permissive hypercapnic acceptable. - continue bronchodilators with pulmonary hygiene per RT - wean per pulmonary driven protocols otherwise - accuchecks with glycemic control per SSI (While critically ill target blood glucose of 140-180 mg/dL; avoid hypoglycemia) - sedation prn for target RASS -1 to -2 - continue enteral nutritional support at goal rate as tolerated - Prone positioning as tolerated and indicated - Monitor liver function test , avoid hepatotoxic agents - Avoid nephrotoxins, renally dose all medications, conservative fluid management - continue to avoid benzodiazepines, reduce the possibility of delirium - prn analgesia per CPOT score - Maintenance of sleep-wake cycle, avoid delirium - continue to avoid benzodiazepines, reduce the possibility of delirium - aspiration precautions -Stress ulcer prophylaxis - PT/OT/ROM exercises - continue mobility protocols for pressure ulcer prevention -CXR, ABG as clinically indicated -CBC, BMP as clinically indicated -Supportive transfusions to keep HgB >7g/dL - Monitor hemodynamics closely - continue other care per attending / other consultants COVID SPECIFIC INTERVENTIONS - SARS CoV-2 IgG positive patient is NOT a candidate for COVID convalescent plasma -Completed remdesivir -continue steroids: on Solu-Medrol, wean -Monitor inflammatory markers - ferritin, Ddimer, CRP, LDH every 3 days -Continue anticoagulation per System Protocol based on d-dimer -Continue contact and airborne isolation .... Re-evaluate in am & prn CONDITION: CRITICAL PROGNOSIS: GUARDED CODE STATUS: FULL CODE The high probability of a clinically significant, sudden or life-threatening deterioration of the [respiratory, cardiovascular, hematologic & neurologic] system(s) required my full and direct attention, intervention and personal management. The aggregate critical care time was [32] minutes without overlap. Time includes spent on; [x] Data Review and interpretation [x] Patient assessment and monitoring of vital signs [x] Documentation [x] Medication orders and management Subjective Date of service: 06/05/20 Principal diagnosis: Ac hypoxemic resp failure; COVID-19; Severe Sepsis; Shaggy PNA; Alcohol Abuse Interval history: Patient is seen today for: Acute hypoxemic respiratory failure due to COVID-19; Severe Sepsis; Bilateral pneumonia; Alcohol dependence; Elevated liver function tests Seen and examined at bedside; 24hour events reviewed; nursing and respiratory care staff consulted; no adverse overnight events reported to me; resting in bed; remains on MVS; FiO2 at 50 % PEEP +12 . Sedated and more comfortable No bowel movements with abdominal distension. No fevers Objective Vital Signs - 12hr 06/05/20 06/05/20 06/05/20 00:35 01:00 02:00 Temperature Pulse Rate 99 H 96 H Pulse Rate [ 104 H From Monitor] Respiratory 25 H 22 16 Rate Blood Pressure 108/63 114/62 O2 Sat by Pulse 99 98 97 Oximetry 06/05/20 06/05/20 06/05/20 03:00 03:53 04:00 Temperature 98.7 F Pulse Rate 96 H 95 H 94 H Pulse Rate [ From Monitor] Respiratory 19 16 Rate Blood Pressure 105/61 107/72 104/66 O2 Sat by Pulse 99 98 98 Oximetry 06/05/20 06/05/20 06/05/20 04:10 05:00 06:00 Temperature Pulse Rate 95 H 95 H 92 H Pulse Rate [ 95 H From Monitor] Respiratory 16 19 17 Rate Blood Pressure 106/64 101/68 O2 Sat by Pulse 99 99 98 Oximetry 06/05/20 06/05/20 06/05/20 07:00 08:00 08:24 Temperature 97.9 F Pulse Rate 95 H 93 H 98 H Pulse Rate [ 110 H From Monitor] Respiratory 20 20 Rate Blood Pressure 103/67 105/65 126/96 O2 Sat by Pulse 99 99 92 Oximetry 06/05/20 06/05/20 06/05/20 09:00 10:00 11:00 Temperature Pulse Rate 123 H 103 H 101 H Pulse Rate [ From Monitor] Respiratory 28 H 17 20 Rate Blood Pressure 128/85 115/67 116/68 O2 Sat by Pulse 91 97 99 Oximetry 06/05/20 12:00 Temperature 98.1 F Pulse Rate Pulse Rate [ From Monitor] Respiratory Rate Blood Pressure O2 Sat by Pulse Oximetry Constitutional: asleep, appears uncomfortable, other (middle aged obese male w ithout significant ventilator dyssynchrony) Eyes: non-icteric ENT: oropharynx moist, other (ETT 24 cm CHILO) Neck: supple, no JVD Effort: normal, mildly labored Ascultation: Bilateral: diminished breath sounds, rhonchi Percussion: Bilateral: not dull Cardiovascular: regular rate and rhythm, other (S1,S2) Gastrointestinal: hypoactive bowel sounds, soft, non-tender, non-distended (protuberant) Integumentary: normal Extremities: no cyanosis, no edema, pulses normal, no ischemia or petechiae Neurologic: pupils equal and round, motor strength normal and, other (sedated) Psychiatric: other (sedated) CBC and BMP: 06/26/20 02:17 06/26/20 02:17 ABG, PT/INR, D-dimer: ABG ABG pH 7.415 pH Units (7.350-7.450) 06/04/20 03:55 POC ABG pCO2 59.7 mmHg (32.0-48.0) H 06/01/20 03:48 ABG pCO2 67.6 mm Hg 06/04/20 03:55 POC ABG pO2 73.9 mmHg (83-108) L 06/01/20 03:48 ABG pO2 117.2 mm Hg (80.0-90.0) H 06/04/20 03:55 POC ABG HCO3 38.7 06/01/20 03:48 ABG O2 Saturation 98.0 % (95.0-99.0) 06/04/20 03:55 PT/INR, D-dimer D-Dimer 1887.82 ng/mlDDU (0-234) H 05/20/20 08:16 Abnormal lab findings: Abnormal Labs 05/09/20 05/09/20 05/09/20 12:59 12:59 12:59 WBC 11.8 H RBC Hgb Hct MCV 96 H MCH 34 H MCHC 35 H RDW Lymph % (Auto) 6.9 L Lymph # (Auto) 0.8 L Seg Neutrophils % 87.5 H Seg Neuts % (Manual) Lymphocytes % (Manual) Nucleated RBC % Seg Neutrophils # 10.3 H Seg Neutrophils # Man Lymphocytes # (Manual) D-Dimer ABG pH POC ABG pCO2 POC ABG pO2 ABG pO2 ABG HCO3 ABG O2 Saturation ABG Base Excess ABG Hemoglobin ABG Oxyhemoglobin ABG Sodium ABG Potassium ABG Chloride ABG Glucose Oxyhemoglobin Sodium 130 L Potassium 3.5 L Chloride 86.4 L Carbon Dioxide BUN 33 H Creatinine 2.3 H Glucose 156 H POC Glucose Lactic Acid Calcium Magnesium Ferritin Total Bilirubin 3.40 H Direct Bilirubin 1.7 H AST 385 H ALT 134 H Alkaline Phosphatase Lactate Dehydrogenase C-Reactive Protein Total Protein Albumin 3.0 L Triglycerides Arterial Blood Glucose Arterial Blood Ionized Calcium Urine WBC (Auto) Coronavirus (PCR) SARS-CoV-2 IgG Ab 05/09/20 05/09/20 05/09/20 12:59 12:59 12:59 WBC RBC Hgb Hct MCV MCH MCHC RDW Lymph % (Auto) Lymph # (Auto) Seg Neutrophils % Seg Neuts % (Manual) Lymphocytes % (Manual) Nucleated RBC % Seg Neutrophils # Seg Neutrophils # Man Lymphocytes # (Manual) D-Dimer 3242.51 H ABG pH POC ABG pCO2 POC ABG pO2 ABG pO2 ABG HCO3 ABG O2 Saturation ABG Base Excess ABG Hemoglobin ABG Oxyhemoglobin ABG Sodium ABG Potassium ABG Chloride ABG Glucose Oxyhemoglobin Sodium Potassium Chloride Carbon Dioxide BUN Creatinine Glucose 158 H POC Glucose Lactic Acid 3.50 H* Calcium Magnesium Ferritin Total Bilirubin Direct Bilirubin AST ALT Alkaline Phosphatase Lactate Dehydrogenase 2166 H C-Reactive Protein 39.00 H Total Protein Albumin Triglycerides Arterial Blood Glucose Arterial Blood Ionized Calcium Urine WBC (Auto) Coronavirus (PCR) SARS-CoV-2 IgG Ab 05/09/20 05/09/20 05/09/20 12:59 14:20 14:20 WBC RBC Hgb Hct MCV MCH MCHC RDW Lymph % (Auto) Lymph # (Auto) Seg Neutrophils % Seg Neuts % (Manual) Lymphocytes % (Manual) Nucleated RBC % Seg Neutrophils # Seg Neutrophils # Man Lymphocytes # (Manual) D-Dimer 2861.78 H ABG pH POC ABG pCO2 POC ABG pO2 ABG pO2 ABG HCO3 ABG O2 Saturation ABG Base Excess ABG Hemoglobin ABG Oxyhemoglobin ABG Sodium ABG Potassium ABG Chloride ABG Glucose Oxyhemoglobin Sodium Potassium Chloride Carbon Dioxide BUN Creatinine Glucose POC Glucose Lactic Acid 2.20 H* Calcium Magnesium Ferritin 88911.0 H Total Bilirubin Direct Bilirubin AST ALT Alkaline Phosphatase Lactate Dehydrogenase C-Reactive Protein Total Protein Albumin Triglycerides Arterial Blood Glucose Arterial Blood Ionized Calcium Urine WBC (Auto) Coronavirus (PCR) SARS-CoV-2 IgG Ab 05/09/20 05/09/20 05/09/20 14:20 14:20 15:56 WBC RBC Hgb Hct MCV MCH MCHC RDW Lymph % (Auto) Lymph # (Auto) Seg Neutrophils % Seg Neuts % (Manual) Lymphocytes % (Manual) Nucleated RBC % Seg Neutrophils # Seg Neutrophils # Man Lymphocytes # (Manual) D-Dimer ABG pH POC ABG pCO2 POC ABG pO2 57.3 L ABG pO2 ABG HCO3 ABG O2 Saturation ABG Base Excess ABG Hemoglobin ABG Oxyhemoglobin 86.3 L ABG Sodium 129.9 L ABG Potassium ABG Chloride ABG Glucose 146 H Oxyhemoglobin Sodium Potassium Chloride Carbon Dioxide BUN Creatinine Glucose 143 H POC Glucose Lactic Acid Calcium Magnesium Ferritin 75681.0 H Total Bilirubin Direct Bilirubin AST ALT Alkaline Phosphatase Lactate Dehydrogenase 1953 H C-Reactive Protein 33.50 H Total Protein Albumin Triglycerides Arterial Blood Glucose 146 H Arterial Blood Ionized Calcium 3.9 L Urine WBC (Auto) Coronavirus (PCR) SARS-CoV-2 IgG Ab 05/10/20 05/10/20 05/10/20 10:32 10:32 18:50 WBC 15.4 H RBC Hgb Hct MCV 97 H MCH 33 H MCHC RDW 13.1 L Lymph % (Auto) Lymph # (Auto) Seg Neutrophils % Seg Neuts % (Manual) 89.0 H Lymphocytes % (Manual) 8.0 L Nucleated RBC % Seg Neutrophils # Seg Neutrophils # Man 13.7 H Lymphocytes # (Manual) D-Dimer ABG pH POC ABG pCO2 POC ABG pO2 ABG pO2 ABG HCO3 ABG O2 Saturation ABG Base Excess ABG Hemoglobin ABG Oxyhemoglobin ABG Sodium ABG Potassium ABG Chloride ABG Glucose Oxyhemoglobin Sodium 136 L Potassium Chloride 97.4 L Carbon Dioxide BUN 37 H Creatinine 1.7 H Glucose 209 H POC Glucose Lactic Acid Calcium Magnesium Ferritin > 2000.0 H Total Bilirubin Direct Bilirubin AST ALT Alkaline Phosphatase Lactate Dehydrogenase C-Reactive Protein Total Protein Albumin Triglycerides Arterial Blood Glucose Arterial Blood Ionized Calcium Urine WBC (Auto) Coronavirus (PCR) SARS-CoV-2 IgG Ab 05/10/20 05/10/20 05/10/20 18:50 19:00 Unknown WBC RBC Hgb Hct MCV MCH MCHC RDW Lymph % (Auto) Lymph # (Auto) Seg Neutrophils % Seg Neuts % (Manual) Lymphocytes % (Manual) Nucleated RBC % Seg Neutrophils # Seg Neutrophils # Man Lymphocytes # (Manual) D-Dimer > 79625 H ABG pH POC ABG pCO2 POC ABG pO2 ABG pO2 ABG HCO3 ABG O2 Saturation ABG Base Excess ABG Hemoglobin ABG Oxyhemoglobin ABG Sodium ABG Potassium ABG Chloride ABG Glucose Oxyhemoglobin Sodium Potassium Chloride Carbon Dioxide BUN Creatinine Glucose POC Glucose Lactic Acid Calcium Magnesium Ferritin Total Bilirubin Direct Bilirubin AST ALT Alkaline Phosphatase Lactate Dehydrogenase 1879 H C-Reactive Protein 24.80 H Total Protein Albumin Triglycerides Arterial Blood Glucose Arterial Blood Ionized Calcium Urine WBC (Auto) 11.0 H Coronavirus (PCR) SARS-CoV-2 IgG Ab 05/10/20 05/11/20 05/11/20 Unknown 07:30 07:30 WBC RBC Hgb Hct MCV MCH MCHC RDW Lymph % (Auto) Lymph # (Auto) Seg Neutrophils % Seg Neuts % (Manual) Lymphocytes % (Manual) Nucleated RBC % Seg Neutrophils # Seg Neutrophils # Man Lymphocytes # (Manual) D-Dimer > 2000 H ABG pH POC ABG pCO2 POC ABG pO2 ABG pO2 ABG HCO3 ABG O2 Saturation ABG Base Excess ABG Hemoglobin ABG Oxyhemoglobin ABG Sodium ABG Potassium ABG Chloride ABG Glucose Oxyhemoglobin Sodium Potassium Chloride 96.3 L Carbon Dioxide BUN 36 H Creatinine Glucose 161 H POC Glucose Lactic Acid Calcium 8.3 L Magnesium Ferritin Total Bilirubin 1.50 H Direct Bilirubin 0.6 H AST 178 H ALT 111 H Alkaline Phosphatase Lactate Dehydrogenase C-Reactive Protein Total Protein Albumin 3.0 L Triglycerides Arterial Blood Glucose Arterial Blood Ionized Calcium Urine WBC (Auto) Coronavirus (PCR) Positive A SARS-CoV-2 IgG Ab 05/11/20 05/11/20 05/11/20 07:30 07:30 07:30 WBC RBC Hgb Hct MCV MCH MCHC RDW Lymph % (Auto) Lymph # (Auto) Seg Neutrophils % Seg Neuts % (Manual) Lymphocytes % (Manual) Nucleated RBC % Seg Neutrophils # Seg Neutrophils # Man Lymphocytes # (Manual) D-Dimer ABG pH POC ABG pCO2 POC ABG pO2 ABG pO2 ABG HCO3 ABG O2 Saturation ABG Base Excess ABG Hemoglobin ABG Oxyhemoglobin ABG Sodium ABG Potassium ABG Chloride ABG Glucose Oxyhemoglobin Sodium Potassium Chloride Carbon Dioxide BUN Creatinine Glucose POC Glucose Lactic Acid Calcium Magnesium Ferritin 43911.0 H Total Bilirubin Direct Bilirubin AST ALT Alkaline Phosphatase Lactate Dehydrogenase 1523 H C-Reactive Protein 12.90 H Total Protein Albumin Triglycerides Arterial Blood Glucose Arterial Blood Ionized Calcium Urine WBC (Auto) Coronavirus (PCR) SARS-CoV-2 IgG Ab Reactive A 05/13/20 05/13/20 05/15/20 05:20 05:20 08:15 WBC RBC Hgb Hct MCV MCH MCHC RDW Lymph % (Auto) Lymph # (Auto) Seg Neutrophils % Seg Neuts % (Manual) Lymphocytes % (Manual) Nucleated RBC % Seg Neutrophils # Seg Neutrophils # Man Lymphocytes # (Manual) D-Dimer > 75531 H 5318.28 H ABG pH POC ABG pCO2 POC ABG pO2 ABG pO2 ABG HCO3 ABG O2 Saturation ABG Base Excess ABG Hemoglobin ABG Oxyhemoglobin ABG Sodium ABG Potassium ABG Chloride ABG Glucose Oxyhemoglobin Sodium Potassium Chloride Carbon Dioxide 32 H BUN 30 H Creatinine Glucose 156 H POC Glucose Lactic Acid Calcium Magnesium 2.60 H Ferritin Total Bilirubin 1.40 H Direct Bilirubin AST 121 H ALT 119 H Alkaline Phosphatase Lactate Dehydrogenase 957 H C-Reactive Protein 4.00 H Total Protein Albumin 3.0 L Triglycerides Arterial Blood Glucose Arterial Blood Ionized Calcium Urine WBC (Auto) Coronavirus (PCR) SARS-CoV-2 IgG Ab 05/15/20 05/15/20 05/15/20 08:15 08:15 08:15 WBC 12.4 H RBC Hgb Hct MCV 98 H MCH 33 H MCHC RDW Lymph % (Auto) 9.7 L Lymph # (Auto) Seg Neutrophils % 86.8 H Seg Neuts % (Manual) Lymphocytes % (Manual) Nucleated RBC % Seg Neutrophils # 10.8 H Seg Neutrophils # Man Lymphocytes # (Manual) D-Dimer ABG pH POC ABG pCO2 POC ABG pO2 ABG pO2 ABG HCO3 ABG O2 Saturation ABG Base Excess ABG Hemoglobin ABG Oxyhemoglobin ABG Sodium ABG Potassium ABG Chloride ABG Glucose Oxyhemoglobin Sodium Potassium Chloride 94.8 L Carbon Dioxide 32 H BUN 22 H Creatinine Glucose 115 H POC Glucose Lactic Acid Calcium 8.3 L Magnesium Ferritin 2494.0 H Total Bilirubin Direct Bilirubin AST 73 H ALT 121 H Alkaline Phosphatase Lactate Dehydrogenase 835 H C-Reactive Protein 3.40 H Total Protein 6.1 L Albumin 3.0 L Triglycerides Arterial Blood Glucose Arterial Blood Ionized Calcium Urine WBC (Auto) Coronavirus (PCR) SARS-CoV-2 IgG Ab 05/17/20 05/17/20 05/17/20 05:50 05:50 05:50 WBC RBC Hgb Hct MCV MCH MCHC RDW Lymph % (Auto) Lymph # (Auto) Seg Neutrophils % Seg Neuts % (Manual) Lymphocytes % (Manual) Nucleated RBC % Seg Neutrophils # Seg Neutrophils # Man Lymphocytes # (Manual) D-Dimer 2911.42 H ABG pH POC ABG pCO2 POC ABG pO2 ABG pO2 ABG HCO3 ABG O2 Saturation ABG Base Excess ABG Hemoglobin ABG Oxyhemoglobin ABG Sodium ABG Potassium ABG Chloride ABG Glucose Oxyhemoglobin Sodium 136 L Potassium Chloride 96.0 L Carbon Dioxide 34 H BUN 22 H Creatinine Glucose 140 H POC Glucose Lactic Acid Calcium Magnesium Ferritin 2082.0 H Total Bilirubin Direct Bilirubin AST ALT 75 H Alkaline Phosphatase Lactate Dehydrogenase 601 H C-Reactive Protein 2.70 H Total Protein Albumin 2.9 L Triglycerides Arterial Blood Glucose Arterial Blood Ionized Calcium Urine WBC (Auto) Coronavirus (PCR) SARS-CoV-2 IgG Ab 05/17/20 05/18/20 05/20/20 05:50 12:22 08:16 WBC RBC Hgb Hct MCV 98 H MCH 33 H MCHC RDW Lymph % (Auto) 8.0 L Lymph # (Auto) 0.8 L Seg Neutrophils % 89.3 H Seg Neuts % (Manual) Lymphocytes % (Manual) Nucleated RBC % Seg Neutrophils # 8.8 H Seg Neutrophils # Man Lymphocytes # (Manual) D-Dimer 1887.82 H ABG pH POC ABG pCO2 POC ABG pO2 ABG pO2 ABG HCO3 ABG O2 Saturation ABG Base Excess ABG Hemoglobin ABG Oxyhemoglobin ABG Sodium ABG Potassium ABG Chloride ABG Glucose Oxyhemoglobin Sodium Potassium Chloride Carbon Dioxide BUN Creatinine Glucose POC Glucose 178 H Lactic Acid Calcium Magnesium Ferritin Total Bilirubin Direct Bilirubin AST ALT Alkaline Phosphatase Lactate Dehydrogenase C-Reactive Protein Total Protein Albumin Triglycerides Arterial Blood Glucose Arterial Blood Ionized Calcium Urine WBC (Auto) Coronavirus (PCR) SARS-CoV-2 IgG Ab 05/20/20 05/20/20 05/21/20 08:16 08:16 21:10 WBC RBC Hgb Hct MCV MCH MCHC RDW Lymph % (Auto) Lymph # (Auto) Seg Neutrophils % Seg Neuts % (Manual) Lymphocytes % (Manual) Nucleated RBC % Seg Neutrophils # Seg Neutrophils # Man Lymphocytes # (Manual) D-Dimer ABG pH 7.483 H POC ABG pCO2 POC ABG pO2 ABG pO2 50.0 L ABG HCO3 27.0 H ABG O2 Saturation 86.2 L ABG Base Excess 3.7 H ABG Hemoglobin ABG Oxyhemoglobin ABG Sodium ABG Potassium ABG Chloride ABG Glucose Oxyhemoglobin 84.2 L Sodium Potassium Chloride Carbon Dioxide BUN Creatinine Glucose POC Glucose Lactic Acid Calcium Magnesium Ferritin 1960.0 H Total Bilirubin Direct Bilirubin AST ALT Alkaline Phosphatase Lactate Dehydrogenase 705 H C-Reactive Protein 3.10 H Total Protein Albumin Triglycerides Arterial Blood Glucose Arterial Blood Ionized Calcium Urine WBC (Auto) Coronavirus (PCR) SARS-CoV-2 IgG Ab 05/22/20 05/22/20 05/22/20 04:01 07:53 07:53 WBC 19.2 H RBC Hgb Hct MCV 98 H MCH 34 H MCHC RDW Lymph % (Auto) Lymph # (Auto) Seg Neutrophils % Seg Neuts % (Manual) 96.0 H Lymphocytes % (Manual) 1.0 L Nucleated RBC % Seg Neutrophils # Seg Neutrophils # Man 18.4 H Lymphocytes # (Manual) 0.2 L D-Dimer ABG pH POC ABG pCO2 53.8 H POC ABG pO2 125.5 H ABG pO2 ABG HCO3 ABG O2 Saturation ABG Base Excess ABG Hemoglobin ABG Oxyhemoglobin ABG Sodium 131.8 L ABG Potassium 4.8 H ABG Chloride 94.0 L ABG Glucose 163 H Oxyhemoglobin Sodium 131 L Potassium Chloride 93.4 L Carbon Dioxide BUN 40 H Creatinine Glucose 176 H POC Glucose Lactic Acid Calcium Magnesium 2.70 H Ferritin Total Bilirubin 1.80 H Direct Bilirubin AST 45 H ALT 116 H Alkaline Phosphatase 181 H Lactate Dehydrogenase C-Reactive Protein Total Protein Albumin 2.6 L Triglycerides Arterial Blood Glucose 163 H Arterial Blood Ionized Calcium 4.5 L Urine WBC (Auto) Coronavirus (PCR) SARS-CoV-2 IgG Ab 05/23/20 05/24/20 05/24/20 04:17 03:07 04:08 WBC RBC Hgb Hct MCV MCH MCHC RDW Lymph % (Auto) Lymph # (Auto) Seg Neutrophils % Seg Neuts % (Manual) Lymphocytes % (Manual) Nucleated RBC % Seg Neutrophils # Seg Neutrophils # Man Lymphocytes # (Manual) D-Dimer ABG pH 7.328 L POC ABG pCO2 POC ABG pO2 ABG pO2 72.8 L 73.4 L ABG HCO3 31.0 H 34.0 H ABG O2 Saturation 93.5 L ABG Base Excess 3.5 H 7.7 H ABG Hemoglobin 13.3 L 12.1 L ABG Oxyhemoglobin ABG Sodium ABG Potassium ABG Chloride ABG Glucose Oxyhemoglobin 91.5 L 94.3 L Sodium Potassium Chloride Carbon Dioxide BUN Creatinine Glucose POC Glucose 155 H Lactic Acid Calcium Magnesium Ferritin Total Bilirubin Direct Bilirubin AST ALT Alkaline Phosphatase Lactate Dehydrogenase C-Reactive Protein Total Protein Albumin Triglycerides Arterial Blood Glucose Arterial Blood Ionized Calcium Urine WBC (Auto) Coronavirus (PCR) SARS-CoV-2 IgG Ab 05/24/20 05/24/20 05/24/20 09:33 12:21 17:52 WBC RBC Hgb Hct MCV MCH MCHC RDW Lymph % (Auto) Lymph # (Auto) Seg Neutrophils % Seg Neuts % (Manual) Lymphocytes % (Manual) Nucleated RBC % Seg Neutrophils # Seg Neutrophils # Man Lymphocytes # (Manual) D-Dimer ABG pH POC ABG pCO2 POC ABG pO2 ABG pO2 ABG HCO3 ABG O2 Saturation ABG Base Excess ABG Hemoglobin ABG Oxyhemoglobin ABG Sodium ABG Potassium ABG Chloride ABG Glucose Oxyhemoglobin Sodium Potassium Chloride Carbon Dioxide 34 H D BUN 28 H Creatinine 0.7 L Glucose 168 H POC Glucose 173 H 164 H Lactic Acid Calcium Magnesium Ferritin Total Bilirubin Direct Bilirubin AST ALT Alkaline Phosphatase Lactate Dehydrogenase C-Reactive Protein Total Protein Albumin Triglycerides Arterial Blood Glucose Arterial Blood Ionized Calcium Urine WBC (Auto) Coronavirus (PCR) SARS-CoV-2 IgG Ab 05/24/20 05/25/20 05/25/20 23:47 04:29 05:46 WBC RBC Hgb Hct MCV MCH MCHC RDW Lymph % (Auto) Lymph # (Auto) Seg Neutrophils % Seg Neuts % (Manual) Lymphocytes % (Manual) Nucleated RBC % Seg Neutrophils # Seg Neutrophils # Man Lymphocytes # (Manual) D-Dimer ABG pH POC ABG pCO2 68.6 H POC ABG pO2 ABG pO2 ABG HCO3 ABG O2 Saturation ABG Base Excess ABG Hemoglobin ABG Oxyhemoglobin ABG Sodium ABG Potassium 4.7 H ABG Chloride ABG Glucose 226 H Oxyhemoglobin Sodium Potassium Chloride Carbon Dioxide BUN Creatinine Glucose POC Glucose 171 H 201 H Lactic Acid Calcium Magnesium Ferritin Total Bilirubin Direct Bilirubin AST ALT Alkaline Phosphatase Lactate Dehydrogenase C-Reactive Protein Total Protein Albumin Triglycerides Arterial Blood Glucose 226 H Arterial Blood Ionized Calcium Urine WBC (Auto) Coronavirus (PCR) SARS-CoV-2 IgG Ab 05/25/20 05/25/20 05/25/20 08:37 08:37 12:38 WBC 12.0 H RBC 3.64 L Hgb Hct MCV 99 H MCH 33 H MCHC RDW Lymph % (Auto) Lymph # (Auto) Seg Neutrophils % Seg Neuts % (Manual) Lymphocytes % (Manual) Nucleated RBC % Seg Neutrophils # Seg Neutrophils # Man Lymphocytes # (Manual) D-Dimer ABG pH POC ABG pCO2 POC ABG pO2 ABG pO2 ABG HCO3 ABG O2 Saturation ABG Base Excess ABG Hemoglobin ABG Oxyhemoglobin ABG Sodium ABG Potassium ABG Chloride ABG Glucose Oxyhemoglobin Sodium Potassium Chloride 97.3 L Carbon Dioxide 35 H BUN 25 H Creatinine 0.7 L Glucose 191 H POC Glucose 182 H Lactic Acid Calcium Magnesium Ferritin Total Bilirubin Direct Bilirubin AST ALT Alkaline Phosphatase Lactate Dehydrogenase C-Reactive Protein Total Protein Albumin Triglycerides Arterial Blood Glucose Arterial Blood Ionized Calcium Urine WBC (Auto) Coronavirus (PCR) SARS-CoV-2 IgG Ab 05/25/20 05/26/20 05/26/20 18:16 00:06 04:50 WBC RBC Hgb Hct MCV MCH MCHC RDW Lymph % (Auto) Lymph # (Auto) Seg Neutrophils % Seg Neuts % (Manual) Lymphocytes % (Manual) Nucleated RBC % Seg Neutrophils # Seg Neutrophils # Man Lymphocytes # (Manual) D-Dimer ABG pH POC ABG pCO2 POC ABG pO2 ABG pO2 221.5 H ABG HCO3 40.4 H ABG O2 Saturation 99.3 H ABG Base Excess 12.8 H ABG Hemoglobin 10.4 L ABG Oxyhemoglobin ABG Sodium ABG Potassium ABG Chloride ABG Glucose Oxyhemoglobin Sodium Potassium Chloride Carbon Dioxide BUN Creatinine Glucose POC Glucose 176 H 152 H Lactic Acid Calcium Magnesium Ferritin Total Bilirubin Direct Bilirubin AST ALT Alkaline Phosphatase Lactate Dehydrogenase C-Reactive Protein Total Protein Albumin Triglycerides Arterial Blood Glucose Arterial Blood Ionized Calcium Urine WBC (Auto) Coronavirus (PCR) SARS-CoV-2 IgG Ab 05/26/20 05/26/20 05/26/20 06:11 07:51 07:51 WBC 13.4 H RBC 3.64 L Hgb Hct MCV 98 H MCH 33 H MCHC RDW Lymph % (Auto) Lymph # (Auto) Seg Neutrophils % Seg Neuts % (Manual) Lymphocytes % (Manual) Nucleated RBC % Seg Neutrophils # Seg Neutrophils # Man Lymphocytes # (Manual) D-Dimer ABG pH POC ABG pCO2 POC ABG pO2 ABG pO2 ABG HCO3 ABG O2 Saturation ABG Base Excess ABG Hemoglobin ABG Oxyhemoglobin ABG Sodium ABG Potassium ABG Chloride ABG Glucose Oxyhemoglobin Sodium Potassium Chloride 96.6 L Carbon Dioxide 39 H BUN 29 H Creatinine 0.7 L Glucose 174 H POC Glucose 165 H Lactic Acid Calcium Magnesium Ferritin Total Bilirubin Direct Bilirubin AST ALT Alkaline Phosphatase Lactate Dehydrogenase C-Reactive Protein Total Protein Albumin Triglycerides Arterial Blood Glucose Arterial Blood Ionized Calcium Urine WBC (Auto) Coronavirus (PCR) SARS-CoV-2 IgG Ab 05/26/20 05/27/20 05/27/20 23:23 03:43 05:29 WBC RBC Hgb Hct MCV MCH MCHC RDW Lymph % (Auto) Lymph # (Auto) Seg Neutrophils % Seg Neuts % (Manual) Lymphocytes % (Manual) Nucleated RBC % Seg Neutrophils # Seg Neutrophils # Man Lymphocytes # (Manual) D-Dimer ABG pH 7.480 H POC ABG pCO2 52.4 H POC ABG pO2 61.4 L ABG pO2 ABG HCO3 ABG O2 Saturation ABG Base Excess ABG Hemoglobin ABG Oxyhemoglobin ABG Sodium 134.9 L ABG Potassium ABG Chloride 95.0 L ABG Glucose 221 H Oxyhemoglobin Sodium Potassium Chloride Carbon Dioxide BUN Creatinine Glucose POC Glucose 169 H 227 H Lactic Acid Calcium Magnesium Ferritin Total Bilirubin Direct Bilirubin AST ALT Alkaline Phosphatase Lactate Dehydrogenase C-Reactive Protein Total Protein Albumin Triglycerides Arterial Blood Glucose 221 H Arterial Blood Ionized Calcium 4.5 L Urine WBC (Auto) Coronavirus (PCR) SARS-CoV-2 IgG Ab 05/27/20 05/27/20 05/27/20 07:19 12:18 13:50 WBC RBC Hgb Hct MCV MCH MCHC RDW Lymph % (Auto) Lymph # (Auto) Seg Neutrophils % Seg Neuts % (Manual) Lymphocytes % (Manual) Nucleated RBC % Seg Neutrophils # Seg Neutrophils # Man Lymphocytes # (Manual) D-Dimer ABG pH POC ABG pCO2 POC ABG pO2 ABG pO2 ABG HCO3 ABG O2 Saturation ABG Base Excess ABG Hemoglobin ABG Oxyhemoglobin ABG Sodium ABG Potassium ABG Chloride ABG Glucose Oxyhemoglobin Sodium Potassium Chloride Carbon Dioxide BUN Creatinine Glucose POC Glucose 114 H 148 H Lactic Acid Calcium Magnesium Ferritin Total Bilirubin Direct Bilirubin AST ALT Alkaline Phosphatase Lactate Dehydrogenase C-Reactive Protein Total Protein Albumin Triglycerides 247 H Arterial Blood Glucose Arterial Blood Ionized Calcium Urine WBC (Auto) Coronavirus (PCR) SARS-CoV-2 IgG Ab 05/28/20 05/28/20 05/28/20 00:13 04:16 05:22 WBC RBC Hgb Hct MCV MCH MCHC RDW Lymph % (Auto) Lymph # (Auto) Seg Neutrophils % Seg Neuts % (Manual) Lymphocytes % (Manual) Nucleated RBC % Seg Neutrophils # Seg Neutrophils # Man Lymphocytes # (Manual) D-Dimer ABG pH POC ABG pCO2 64.4 H POC ABG pO2 60.5 L ABG pO2 ABG HCO3 ABG O2 Saturation ABG Base Excess ABG Hemoglobin ABG Oxyhemoglobin ABG Sodium ABG Potassium ABG Chloride 95.0 L ABG Glucose 209 H Oxyhemoglobin Sodium Potassium Chloride Carbon Dioxide BUN Creatinine Glucose POC Glucose 155 H 186 H Lactic Acid Calcium Magnesium Ferritin Total Bilirubin Direct Bilirubin AST ALT Alkaline Phosphatase Lactate Dehydrogenase C-Reactive Protein Total Protein Albumin Triglycerides Arterial Blood Glucose 209 H Arterial Blood Ionized Calcium Urine WBC (Auto) Coronavirus (PCR) SARS-CoV-2 IgG Ab 05/28/20 05/28/20 05/29/20 12:45 17:39 00:37 WBC RBC Hgb Hct MCV MCH MCHC RDW Lymph % (Auto) Lymph # (Auto) Seg Neutrophils % Seg Neuts % (Manual) Lymphocytes % (Manual) Nucleated RBC % Seg Neutrophils # Seg Neutrophils # Man Lymphocytes # (Manual) D-Dimer ABG pH POC ABG pCO2 POC ABG pO2 ABG pO2 ABG HCO3 ABG O2 Saturation ABG Base Excess ABG Hemoglobin ABG Oxyhemoglobin ABG Sodium ABG Potassium ABG Chloride ABG Glucose Oxyhemoglobin Sodium Potassium Chloride Carbon Dioxide BUN Creatinine Glucose POC Glucose 143 H 164 H 221 H Lactic Acid Calcium Magnesium Ferritin Total Bilirubin Direct Bilirubin AST ALT Alkaline Phosphatase Lactate Dehydrogenase C-Reactive Protein Total Protein Albumin Triglycerides Arterial Blood Glucose Arterial Blood Ionized Calcium Urine WBC (Auto) Coronavirus (PCR) SARS-CoV-2 IgG Ab 05/29/20 05/29/20 05/29/20 04:15 05:33 12:34 WBC RBC Hgb Hct MCV MCH MCHC RDW Lymph % (Auto) Lymph # (Auto) Seg Neutrophils % Seg Neuts % (Manual) Lymphocytes % (Manual) Nucleated RBC % Seg Neutrophils # Seg Neutrophils # Man Lymphocytes # (Manual) D-Dimer ABG pH 7.463 H POC ABG pCO2 56.3 H POC ABG pO2 81.2 L ABG pO2 ABG HCO3 ABG O2 Saturation ABG Base Excess ABG Hemoglobin ABG Oxyhemoglobin ABG Sodium ABG Potassium ABG Chloride 96.0 L ABG Glucose 194 H Oxyhemoglobin Sodium Potassium Chloride Carbon Dioxide BUN Creatinine Glucose POC Glucose 133 H 221 H Lactic Acid Calcium Magnesium Ferritin Total Bilirubin Direct Bilirubin AST ALT Alkaline Phosphatase Lactate Dehydrogenase C-Reactive Protein Total Protein Albumin Triglycerides Arterial Blood Glucose 194 H Arterial Blood Ionized Calcium 4.5 L Urine WBC (Auto) Coronavirus (PCR) SARS-CoV-2 IgG Ab 05/29/20 05/30/20 05/30/20 18:07 00:12 05:38 WBC RBC Hgb Hct MCV MCH MCHC RDW Lymph % (Auto) Lymph # (Auto) Seg Neutrophils % Seg Neuts % (Manual) Lymphocytes % (Manual) Nucleated RBC % Seg Neutrophils # Seg Neutrophils # Man Lymphocytes # (Manual) D-Dimer ABG pH POC ABG pCO2 POC ABG pO2 ABG pO2 ABG HCO3 ABG O2 Saturation ABG Base Excess ABG Hemoglobin ABG Oxyhemoglobin ABG Sodium ABG Potassium ABG Chloride ABG Glucose Oxyhemoglobin Sodium Potassium Chloride Carbon Dioxide BUN Creatinine Glucose POC Glucose 162 H 190 H 208 H Lactic Acid Calcium Magnesium Ferritin Total Bilirubin Direct Bilirubin AST ALT Alkaline Phosphatase Lactate Dehydrogenase C-Reactive Protein Total Protein Albumin Triglycerides Arterial Blood Glucose Arterial Blood Ionized Calcium Urine WBC (Auto) Coronavirus (PCR) SARS-CoV-2 IgG Ab 05/30/20 05/30/20 05/30/20 09:30 11:35 11:54 WBC 12.4 H RBC 3.48 L Hgb 11.3 L Hct 34.6 L MCV 99 H MCH 33 H MCHC RDW Lymph % (Auto) Lymph # (Auto) Seg Neutrophils % Seg Neuts % (Manual) Lymphocytes % (Manual) Nucleated RBC % Seg Neutrophils # Seg Neutrophils # Man Lymphocytes # (Manual) D-Dimer ABG pH 7.455 H POC ABG pCO2 57.5 H POC ABG pO2 81.5 L ABG pO2 ABG HCO3 ABG O2 Saturation ABG Base Excess ABG Hemoglobin ABG Oxyhemoglobin ABG Sodium ABG Potassium ABG Chloride 96.0 L ABG Glucose 204 H Oxyhemoglobin Sodium Potassium Chloride Carbon Dioxide BUN Creatinine Glucose POC Glucose 183 H Lactic Acid Calcium Magnesium Ferritin Total Bilirubin Direct Bilirubin AST ALT Alkaline Phosphatase Lactate Dehydrogenase C-Reactive Protein Total Protein Albumin Triglycerides Arterial Blood Glucose 204 H Arterial Blood Ionized Calcium Urine WBC (Auto) Coronavirus (PCR) SARS-CoV-2 IgG Ab 05/30/20 05/31/20 05/31/20 18:01 00:10 03:22 WBC RBC Hgb Hct MCV MCH MCHC RDW Lymph % (Auto) Lymph # (Auto) Seg Neutrophils % Seg Neuts % (Manual) Lymphocytes % (Manual) Nucleated RBC % Seg Neutrophils # Seg Neutrophils # Man Lymphocytes # (Manual) D-Dimer ABG pH POC ABG pCO2 60.4 H POC ABG pO2 71.5 L ABG pO2 ABG HCO3 ABG O2 Saturation ABG Base Excess ABG Hemoglobin ABG Oxyhemoglobin ABG Sodium ABG Potassium ABG Chloride 96.0 L ABG Glucose 169 H Oxyhemoglobin Sodium Potassium Chloride Carbon Dioxide BUN Creatinine Glucose POC Glucose 184 H 135 H Lactic Acid Calcium Magnesium Ferritin Total Bilirubin Direct Bilirubin AST ALT Alkaline Phosphatase Lactate Dehydrogenase C-Reactive Protein Total Protein Albumin Triglycerides Arterial Blood Glucose 169 H Arterial Blood Ionized Calcium 4.5 L Urine WBC (Auto) Coronavirus (PCR) SARS-CoV-2 IgG Ab 05/31/20 05/31/20 05/31/20 05:24 11:18 14:41 WBC RBC Hgb Hct MCV MCH MCHC RDW Lymph % (Auto) Lymph # (Auto) Seg Neutrophils % Seg Neuts % (Manual) Lymphocytes % (Manual) Nucleated RBC % Seg Neutrophils # Seg Neutrophils # Man Lymphocytes # (Manual) D-Dimer ABG pH POC ABG pCO2 POC ABG pO2 ABG pO2 ABG HCO3 ABG O2 Saturation ABG Base Excess ABG Hemoglobin ABG Oxyhemoglobin ABG Sodium ABG Potassium ABG Chloride ABG Glucose Oxyhemoglobin Sodium Potassium Chloride 96.8 L Carbon Dioxide 37 H BUN 31 H Creatinine 0.6 L Glucose 213 H POC Glucose 164 H 208 H Lactic Acid Calcium Magnesium Ferritin Total Bilirubin Direct Bilirubin AST ALT Alkaline Phosphatase Lactate Dehydrogenase C-Reactive Protein Total Protein Albumin Triglycerides Arterial Blood Glucose Arterial Blood Ionized Calcium Urine WBC (Auto) Coronavirus (PCR) SARS-CoV-2 IgG Ab 05/31/20 05/31/20 06/01/20 17:37 23:47 03:48 WBC RBC Hgb Hct MCV MCH MCHC RDW Lymph % (Auto) Lymph # (Auto) Seg Neutrophils % Seg Neuts % (Manual) Lymphocytes % (Manual) Nucleated RBC % Seg Neutrophils # Seg Neutrophils # Man Lymphocytes # (Manual) D-Dimer ABG pH POC ABG pCO2 59.7 H POC ABG pO2 73.9 L ABG pO2 ABG HCO3 ABG O2 Saturation ABG Base Excess ABG Hemoglobin ABG Oxyhemoglobin ABG Sodium ABG Potassium ABG Chloride 95.0 L ABG Glucose 256 H Oxyhemoglobin Sodium Potassium Chloride Carbon Dioxide BUN Creatinine Glucose POC Glucose 168 H 178 H Lactic Acid Calcium Magnesium Ferritin Total Bilirubin Direct Bilirubin AST ALT Alkaline Phosphatase Lactate Dehydrogenase C-Reactive Protein Total Protein Albumin Triglycerides Arterial Blood Glucose 256 H Arterial Blood Ionized Calcium Urine WBC (Auto) Coronavirus (PCR) SARS-CoV-2 IgG Ab 06/01/20 06/01/20 06/01/20 05:01 07:47 07:47 WBC 14.4 H RBC 3.46 L Hgb 11.1 L Hct 34.3 L MCV 99 H MCH MCHC RDW Lymph % (Auto) Lymph # (Auto) Seg Neutrophils % Seg Neuts % (Manual) 86.0 H Lymphocytes % (Manual) 9.0 L Nucleated RBC % Seg Neutrophils # Seg Neutrophils # Man 12.4 H Lymphocytes # (Manual) D-Dimer ABG pH POC ABG pCO2 POC ABG pO2 ABG pO2 ABG HCO3 ABG O2 Saturation ABG Base Excess ABG Hemoglobin ABG Oxyhemoglobin ABG Sodium ABG Potassium ABG Chloride ABG Glucose Oxyhemoglobin Sodium Potassium Chloride Carbon Dioxide BUN Creatinine Glucose POC Glucose 197 H Lactic Acid Calcium Magnesium Ferritin Total Bilirubin Direct Bilirubin AST ALT Alkaline Phosphatase Lactate Dehydrogenase C-Reactive Protein Total Protein Albumin Triglycerides 244 H Arterial Blood Glucose Arterial Blood Ionized Calcium Urine WBC (Auto) Coronavirus (PCR) SARS-CoV-2 IgG Ab 06/01/20 06/01/20 06/01/20 07:47 11:46 18:15 WBC RBC Hgb Hct MCV MCH MCHC RDW Lymph % (Auto) Lymph # (Auto) Seg Neutrophils % Seg Neuts % (Manual) Lymphocytes % (Manual) Nucleated RBC % Seg Neutrophils # Seg Neutrophils # Man Lymphocytes # (Manual) D-Dimer ABG pH POC ABG pCO2 POC ABG pO2 ABG pO2 ABG HCO3 ABG O2 Saturation ABG Base Excess ABG Hemoglobin ABG Oxyhemoglobin ABG Sodium ABG Potassium ABG Chloride ABG Glucose Oxyhemoglobin Sodium Potassium Chloride 95.4 L Carbon Dioxide 35 H BUN 30 H Creatinine 0.5 L Glucose 214 H POC Glucose 181 H 221 H Lactic Acid Calcium Magnesium Ferritin Total Bilirubin Direct Bilirubin AST 54 H ALT 235 H Alkaline Phosphatase Lactate Dehydrogenase C-Reactive Protein Total Protein Albumin 2.9 L Triglycerides Arterial Blood Glucose Arterial Blood Ionized Calcium Urine WBC (Auto) Coronavirus (PCR) SARS-CoV-2 IgG Ab 06/01/20 06/02/20 06/02/20 23:12 04:00 05:31 WBC RBC Hgb Hct MCV MCH MCHC RDW Lymph % (Auto) Lymph # (Auto) Seg Neutrophils % Seg Neuts % (Manual) Lymphocytes % (Manual) Nucleated RBC % Seg Neutrophils # Seg Neutrophils # Man Lymphocytes # (Manual) D-Dimer ABG pH 7.465 H POC ABG pCO2 POC ABG pO2 ABG pO2 203.4 H ABG HCO3 41.2 H ABG O2 Saturation 99.3 H ABG Base Excess 15.1 H ABG Hemoglobin 11.5 L ABG Oxyhemoglobin ABG Sodium ABG Potassium ABG Chloride ABG Glucose Oxyhemoglobin Sodium Potassium Chloride Carbon Dioxide BUN Creatinine Glucose POC Glucose 197 H 184 H Lactic Acid Calcium Magnesium Ferritin Total Bilirubin Direct Bilirubin AST ALT Alkaline Phosphatase Lactate Dehydrogenase C-Reactive Protein Total Protein Albumin Triglycerides Arterial Blood Glucose Arterial Blood Ionized Calcium Urine WBC (Auto) Coronavirus (PCR) SARS-CoV-2 IgG Ab 06/02/20 06/02/20 06/02/20 11:49 18:06 23:00 WBC RBC Hgb Hct MCV MCH MCHC RDW Lymph % (Auto) Lymph # (Auto) Seg Neutrophils % Seg Neuts % (Manual) Lymphocytes % (Manual) Nucleated RBC % Seg Neutrophils # Seg Neutrophils # Man Lymphocytes # (Manual) D-Dimer ABG pH POC ABG pCO2 POC ABG pO2 ABG pO2 ABG HCO3 ABG O2 Saturation ABG Base Excess ABG Hemoglobin ABG Oxyhemoglobin ABG Sodium ABG Potassium ABG Chloride ABG Glucose Oxyhemoglobin Sodium Potassium Chloride Carbon Dioxide BUN Creatinine Glucose POC Glucose 195 H 177 H 228 H Lactic Acid Calcium Magnesium Ferritin Total Bilirubin Direct Bilirubin AST ALT Alkaline Phosphatase Lactate Dehydrogenase C-Reactive Protein Total Protein Albumin Triglycerides Arterial Blood Glucose Arterial Blood Ionized Calcium Urine WBC (Auto) Coronavirus (PCR) SARS-CoV-2 IgG Ab 06/03/20 06/03/20 06/03/20 03:58 05:19 12:21 WBC RBC Hgb Hct MCV MCH MCHC RDW Lymph % (Auto) Lymph # (Auto) Seg Neutrophils % Seg Neuts % (Manual) Lymphocytes % (Manual) Nucleated RBC % Seg Neutrophils # Seg Neutrophils # Man Lymphocytes # (Manual) D-Dimer ABG pH POC ABG pCO2 POC ABG pO2 ABG pO2 171.0 H ABG HCO3 42.8 H ABG O2 Saturation ABG Base Excess 15.6 H ABG Hemoglobin 12.3 L ABG Oxyhemoglobin ABG Sodium ABG Potassium ABG Chloride ABG Glucose Oxyhemoglobin Sodium Potassium Chloride Carbon Dioxide BUN Creatinine Glucose POC Glucose 122 H 207 H Lactic Acid Calcium Magnesium Ferritin Total Bilirubin Direct Bilirubin AST ALT Alkaline Phosphatase Lactate Dehydrogenase C-Reactive Protein Total Protein Albumin Triglycerides Arterial Blood Glucose Arterial Blood Ionized Calcium Urine WBC (Auto) Coronavirus (PCR) SARS-CoV-2 IgG Ab 06/03/20 06/03/20 06/04/20 17:27 23:50 03:55 WBC RBC Hgb Hct MCV MCH MCHC RDW Lymph % (Auto) Lymph # (Auto) Seg Neutrophils % Seg Neuts % (Manual) Lymphocytes % (Manual) Nucleated RBC % Seg Neutrophils # Seg Neutrophils # Man Lymphocytes # (Manual) D-Dimer ABG pH POC ABG pCO2 POC ABG pO2 ABG pO2 117.2 H ABG HCO3 42.4 H ABG O2 Saturation ABG Base Excess 15.3 H ABG Hemoglobin 10.5 L ABG Oxyhemoglobin ABG Sodium ABG Potassium ABG Chloride ABG Glucose Oxyhemoglobin Sodium Potassium Chloride Carbon Dioxide BUN Creatinine Glucose POC Glucose 157 H 214 H Lactic Acid Calcium Magnesium Ferritin Total Bilirubin Direct Bilirubin AST ALT Alkaline Phosphatase Lactate Dehydrogenase C-Reactive Protein Total Protein Albumin Triglycerides Arterial Blood Glucose Arterial Blood Ionized Calcium Urine WBC (Auto) Coronavirus (PCR) SARS-CoV-2 IgG Ab 06/04/20 06/04/20 06/04/20 05:49 11:41 17:30 WBC RBC Hgb Hct MCV MCH MCHC RDW Lymph % (Auto) Lymph # (Auto) Seg Neutrophils % Seg Neuts % (Manual) Lymphocytes % (Manual) Nucleated RBC % Seg Neutrophils # Seg Neutrophils # Man Lymphocytes # (Manual) D-Dimer ABG pH POC ABG pCO2 POC ABG pO2 ABG pO2 ABG HCO3 ABG O2 Saturation ABG Base Excess ABG Hemoglobin ABG Oxyhemoglobin ABG Sodium ABG Potassium ABG Chloride ABG Glucose Oxyhemoglobin Sodium Potassium Chloride Carbon Dioxide BUN Creatinine Glucose POC Glucose 149 H 233 H 156 H Lactic Acid Calcium Magnesium Ferritin Total Bilirubin Direct Bilirubin AST ALT Alkaline Phosphatase Lactate Dehydrogenase C-Reactive Protein Total Protein Albumin Triglycerides Arterial Blood Glucose Arterial Blood Ionized Calcium Urine WBC (Auto) Coronavirus (PCR) SARS-CoV-2 IgG Ab 06/04/20 06/04/20 06/04/20 19:01 20:53 23:41 WBC RBC 3.18 L Hgb 10.8 L Hct 31.8 L MCV 100 H MCH 34 H MCHC RDW Lymph % (Auto) Lymph # (Auto) Seg Neutrophils % Seg Neuts % (Manual) 86.0 H Lymphocytes % (Manual) 10.0 L Nucleated RBC % 1.0 H Seg Neutrophils # Seg Neutrophils # Man 8.5 H Lymphocytes # (Manual) 1.0 L D-Dimer ABG pH POC ABG pCO2 POC ABG pO2 ABG pO2 ABG HCO3 ABG O2 Saturation ABG Base Excess ABG Hemoglobin ABG Oxyhemoglobin ABG Sodium ABG Potassium ABG Chloride ABG Glucose Oxyhemoglobin Sodium Potassium 3.4 L D Chloride 96.5 L Carbon Dioxide 41 H* BUN 27 H Creatinine 0.5 L Glucose 173 H POC Glucose 217 H Lactic Acid Calcium Magnesium Ferritin Total Bilirubin Direct Bilirubin AST ALT Alkaline Phosphatase Lactate Dehydrogenase C-Reactive Protein Total Protein Albumin Triglycerides Arterial Blood Glucose Arterial Blood Ionized Calcium Urine WBC (Auto) Coronavirus (PCR) SARS-CoV-2 IgG Ab 06/05/20 06/05/20 06:05 11:54 WBC RBC Hgb Hct MCV MCH MCHC RDW Lymph % (Auto) Lymph # (Auto) Seg Neutrophils % Seg Neuts % (Manual) Lymphocytes % (Manual) Nucleated RBC % Seg Neutrophils # Seg Neutrophils # Man Lymphocytes # (Manual) D-Dimer ABG pH POC ABG pCO2 POC ABG pO2 ABG pO2 ABG HCO3 ABG O2 Saturation ABG Base Excess ABG Hemoglobin ABG Oxyhemoglobin ABG Sodium ABG Potassium ABG Chloride ABG Glucose Oxyhemoglobin Sodium Potassium Chloride Carbon Dioxide BUN Creatinine Glucose POC Glucose 137 H 211 H Lactic Acid Calcium Magnesium Ferritin Total Bilirubin Direct Bilirubin AST ALT Alkaline Phosphatase Lactate Dehydrogenase C-Reactive Protein Total Protein Albumin Triglycerides Arterial Blood Glucose Arterial Blood Ionized Calcium Urine WBC (Auto) Coronavirus (PCR) SARS-CoV-2 IgG Ab Allied health notes reviewed: RT
[2020-06-05] MEDS ORDERED: MAGNESIUM CITRATE 300 ML ORAL LIQD PO ONE (12:55)
[2020-06-05 13:00] LABS: ABG HCO3 41.1 mmol/L (20.0-26.0); ABG Methemoglobin 0.5 % (0.0-1.5); ABG Oxygen Saturation 98.3 % (95.0-99.0); ABG PCO2 69.6 mm Hg; ABG PH 7.389 pH Units (7.350-7.450); ABG PO2 127.9 mm Hg (80.0-90.0)
--- NOTE | 2020-06-05 15:30 | Progress Note ---
Assessment and Plan Assessment and Plan Patient intubated last night because of persistent hypoxia --Elevated D-dimers; on full dose anticoagulation However ID requested to get CTA chest, patient is unstable to go for CT As he is requiring high flow oxygen. -- Acute hypoxemic respiratory failure; Patient intubated and on vent support --Elevated D-dimers; check CTA to rule out PE Lower extremity venous Doppler to rule out DVT Patient is already on full dose anticoagulation per COVID-19 protocol -- Novel coronavirus infection with Bilateral pneumonia Coronavirus protocol: IV steroid therapy, IV remdesivir, isolation precautions, contact precautions, prone positioning while in bed, pulmonary toilet. consulted ID --Severe sepsis, due to COVID 19 PNA cont to treat for COVID -- Acute kidney injury (SEN) , likely vasomotor nephropathy Resolved, IV fluids, avoid nephrotoxins -- Alcohol dependence; no episodes of withdrawal symptoms Thiamine, folic acid, multivitamin, CIWA protocol. -- Elevated liver function tests Suspected secondary to alcoholic liver disease. Supportive care, alcohol cessation, patient counseled. -- DVT prophylaxis prophylactic AC with lovenox for elevated D-dimer We will closely monitor patient and adjust management as needed Patient has severe Covid pneumonia, severe hypoxia Critically ill very poor prognosis Full CODE STATUS The high probability of a clinically significant, sudden or life threatening deterioration of the [Covid pneumonia, ID, respiratory, liver] system(s) required my full and direct attention, intervention and personal management. The aggregate critical care time was [32] minutes. This time is in addition to time spent performing reported procedures but includes the following: [x] Data Review and interpretation [x] Patient assessment and monitoring of vital signs [x] Documentation [x] Medication orders and management. Subjective Date of service: 06/05/20 Principal diagnosis: Ac hypoxemic resp failure; COVID-19; Severe Sepsis; Shaggy PNA; Alcohol Abuse Interval history: Brief history; 50 YO Male with Obesity, ETOH Dependence presents to ED for evaluation for shortness of breath, generalized weakness, fatigue, malaise, body aches, decreased exercise tolerance over the past 5 days. EMS was notified and upon arrival the patient was found to be in distress with a pulse oximetry of 76% on room air as well as fever to 103 F. In the ER chest x-ray and was found to have bilateral pneumonia. Patient admitted to medical floor and initiated on pneumonia protocol as well as COVID-19 protocol. Patient severe Covid pneumonia, with persistent severe hypoxemia requiring very high flow oxygen Today on continuous BiPAP, patient is in mild distress, critically ill with very poor prognosis. Patient was on high flow oxygen but could not be maintained above 90 hence patient intubated last night electively 05/17/2020; patient with severe COVID-19 pneumonia, in isolation room Patient is on high flow oxygen, and BiPAP 05/18/20; patient feels slightly better still hypoxic, requiring continuous high flow oxygen and BiPAP Respiratory team trying to wean 05/19/20; patient is severely hypoxemic requiring continuous BiPAP today, complains of generalized weakness Trying to wean off high flow oxygen, patient is in isolation 05/20/2020; patient remains on high flow oxygen/BiPAP/100% nonrebreather. Still is hypoxemic Has sinus tachycardia patient in mild distress Wean off high flow oxygen as tolerated, pulmonary critical following 05/21/20; patient is critically ill, on continuous BiPAP remains hypoxemic in mild distress Patient has severe Covid Pneumonia with persistent hypoxemia and poor prognosis 05/22/2020 Patient was intubated last night because of persistent hypoxemia Objective - Constitutional Vitals: Vital Signs - 12hr 06/05/20 06/05/20 06/05/20 03:53 04:00 04:10 Temperature 98.7 F Pulse Rate 95 H 94 H 95 H Pulse Rate [ 95 H From Monitor] Respiratory 16 16 Rate Blood Pressure 107/72 104/66 O2 Sat by Pulse 98 98 99 Oximetry 06/05/20 06/05/20 06/05/20 05:00 06:00 07:00 Temperature Pulse Rate 95 H 92 H 95 H Pulse Rate [ From Monitor] Respiratory 19 17 20 Rate Blood Pressure 106/64 101/68 103/67 O2 Sat by Pulse 99 98 99 Oximetry 06/05/20 06/05/20 06/05/20 08:00 08:24 09:00 Temperature 97.9 F Pulse Rate 93 H 98 H 123 H Pulse Rate [ 110 H From Monitor] Respiratory 20 28 H Rate Blood Pressure 105/65 126/96 128/85 O2 Sat by Pulse 99 92 91 Oximetry 06/05/20 06/05/20 06/05/20 10:00 11:00 12:00 Temperature 98.1 F Pulse Rate 103 H 101 H 98 H Pulse Rate [ 108 H From Monitor] Respiratory 17 20 19 Rate Blood Pressure 115/67 116/68 105/69 O2 Sat by Pulse 97 99 99 Oximetry 06/05/20 06/05/20 06/05/20 12:33 13:00 14:00 Temperature Pulse Rate 99 H 96 H 95 H Pulse Rate [ From Monitor] Respiratory 19 20 Rate Blood Pressure 111/70 96/67 112/65 O2 Sat by Pulse 99 99 99 Oximetry General appearance: Present: no acute distress, well-nourished - EENT Eyes: PERRL, EOM intact ENT: hearing intact, clear oral mucosa Ears: bilateral: normal - Neck Neck: supple, normal ROM - Respiratory Respiratory effort: normal Respiratory: bilateral: CTA - Breasts Breasts: normal - Cardiovascular Rhythm: regular Heart Sounds: Present: S1 & S2. Absent: gallop, rub Extremities: pulses intact, No edema, normal color, Full ROM - Gastrointestinal General gastrointestinal: Present: soft, non-tender, non-distended, normal bowel sounds - Genitourinary Male genitourinary: normal - Integumentary Integumentary: clear, warm, dry - Musculoskeletal Musculoskeletal: 1, strength equal bilaterally - Neurologic Neurologic: moves all extremities - Psychiatric Psychiatric: memory intact, appropriate mood/affect, intact judgment & insight - Labs CBC & Chem 7: 06/04/20 20:53 06/04/20 19:01 Labs: Abnormal lab results 06/04/20 06/04/20 06/04/20 Range/Units 17:30 19:01 20:53 RBC 3.18 L (3.65-5.03) M/mm3 Hgb 10.8 L (11.8-15.2) gm/dl Hct 31.8 L (35.5-45.6) % MCV 100 H (84-94) fl MCH 34 H (28-32) pg Seg Neuts % (Manual) 86.0 H (40.0-70.0) % Lymphocytes % (Manual) 10.0 L (13.4-35.0) % Nucleated RBC % 1.0 H (0.0-0.9) % Seg Neutrophils # Man 8.5 H (1.8-7.7) K/mm3 Lymphocytes # (Manual) 1.0 L (1.2-5.4) K/mm3 ABG pO2 (80.0-90.0) mm Hg ABG HCO3 (20.0-26.0) mmol/L ABG Base Excess (-2.0-3.0) mmol/L ABG Hemoglobin (14.0-18.0) gm/dl Potassium 3.4 L D (3.6-5.0) mmol/L Chloride 96.5 L (98-107) mmol/L Carbon Dioxide 41 H* (22-30) mmol/L BUN 27 H (9-20) mg/dL Creatinine 0.5 L (0.8-1.3) mg/dL Glucose 173 H (75-100) mg/dL POC Glucose 156 H (70-105) mg/dL 06/04/20 06/05/20 06/05/20 Range/Units 23:41 06:05 11:54 RBC (3.65-5.03) M/mm3 Hgb (11.8-15.2) gm/dl Hct (35.5-45.6) % MCV (84-94) fl MCH (28-32) pg Seg Neuts % (Manual) (40.0-70.0) % Lymphocytes % (Manual) (13.4-35.0) % Nucleated RBC % (0.0-0.9) % Seg Neutrophils # Man (1.8-7.7) K/mm3 Lymphocytes # (Manual) (1.2-5.4) K/mm3 ABG pO2 (80.0-90.0) mm Hg ABG HCO3 (20.0-26.0) mmol/L ABG Base Excess (-2.0-3.0) mmol/L ABG Hemoglobin (14.0-18.0) gm/dl Potassium (3.6-5.0) mmol/L Chloride (98-107) mmol/L Carbon Dioxide (22-30) mmol/L BUN (9-20) mg/dL Creatinine (0.8-1.3) mg/dL Glucose (75-100) mg/dL POC Glucose 217 H 137 H 211 H (70-105) mg/dL 06/05/20 Range/Units 12:35 RBC (3.65-5.03) M/mm3 Hgb (11.8-15.2) gm/dl Hct (35.5-45.6) % MCV (84-94) fl MCH (28-32) pg Seg Neuts % (Manual) (40.0-70.0) % Lymphocytes % (Manual) (13.4-35.0) % Nucleated RBC % (0.0-0.9) % Seg Neutrophils # Man (1.8-7.7) K/mm3 Lymphocytes # (Manual) (1.2-5.4) K/mm3 ABG pO2 127.9 H (80.0-90.0) mm Hg ABG HCO3 41.1 H (20.0-26.0) mmol/L ABG Base Excess 13.0 H (-2.0-3.0) mmol/L ABG Hemoglobin 13.4 L (14.0-18.0) gm/dl Potassium (3.6-5.0) mmol/L Chloride (98-107) mmol/L Carbon Dioxide (22-30) mmol/L BUN (9-20) mg/dL Creatinine (0.8-1.3) mg/dL Glucose (75-100) mg/dL POC Glucose (70-105) mg/dL
[2020-06-05] MEDS: POLYETHYLENE GLYCOL 3350 17 GM POWDER PO SCH (22:00)
[2020-06-06] MEDS: fentaNYL DRIP Premix 2,000 MCG/100 ML BAG IV SCH ×4 (04:33→20:41)
[2020-06-06] MEDS: INSULIN LISPRO 100 UNIT/ML VIAL 3 mL SUB-Q SCH ×4 (05:22→17:47)
[2020-06-06] MEDS: methylPREDNISolone Sod Succinate 40 MG/1 ML INJ IV SCH ×2 (05:52→17:46)
[2020-06-06] MEDS: ENOXAPARIN 120 MG/0.8 ML INJ SUB-Q SCH ×2 (10:37→22:39)
[2020-06-06] MEDS: FOLIC ACID 1 MG TAB PO SCH (10:38)
[2020-06-06] MEDS: DOCUSATE SODIUM 100 MG/10 ML ORAL LIQD PO SCH ×2 (10:38→23:21)
[2020-06-06] MEDS: FAMOTIDINE 20 MG TAB PO SCH ×2 (10:39→22:39)
[2020-06-06] MEDS ORDERED: NEOMY 3.5 MG/BACIT 400 UNITS/POLY B 5000 UNITS/GM OINT PACKET TP ONE (17:17)
--- NOTE | 2020-06-06 17:31 | Progress Note ---
Assessment and Plan Acute hypoxemic respiratory failure due to COVID-19 Severe COVID infection Severe Sepsis Bilateral pneumonia Acute kidney injury (SEN) with acute tubular necrosis (ATN)-improving h/o Alcohol dependence Elevated liver function tests probably secondary COVID Continue to wean supplemental oxygen for O2 sats>90% Monitor blood pressure closely while optimizing sedation, if any hypotension, start vasopressor support Gentle intermittent diuresis while monitoring renal function, hemodynamics and electrolyte profile Bowel regimen- Relistor Continue to monitor airway pressures - VAP bundle addressed, aspiration precautions HOB >40 - Continue lung protective strategies, permissive hypercapnic acceptable. -Pa/FIO2 ratio acceptable at this time - continue bronchodilators with pulmonary hygiene per RT - wean per pulmonary driven protocols otherwise - accuchecks with glycemic control per SSI (While critically ill target blood glucose of 140-180 mg/dL; avoid hypoglycemia) - sedation prn for target RASS -1 to -2 - continue enteral nutritional support at goal rate as tolerated - Prone positioning as tolerated and indicated - Monitor liver function test , avoid hepatotoxic agents - Avoid nephrotoxins, renally dose all medications, conservative fluid management - continue to avoid benzodiazepines, reduce the possibility of delirium - prn analgesia per CPOT score - Maintenance of sleep-wake cycle, avoid delirium - continue to avoid benzodiazepines, reduce the possibility of delirium - aspiration precautions -Stress ulcer prophylaxis - PT/OT/ROM exercises - continue mobility protocols for pressure ulcer prevention -CXR, ABG as clinically indicated -CBC, BMP as clinically indicated -Supportive transfusions to keep HgB >7g/dL - Monitor hemodynamics closely - continue other care per attending / other consultants COVID SPECIFIC INTERVENTIONS - SARS CoV-2 IgG positive patient is NOT a candidate for COVID convalescent plasma -Completed remdesivir -continue steroids: on Solu-Medrol, wean -Monitor inflammatory markers - ferritin, Ddimer, CRP, LDH every 3 days -Continue anticoagulation per System Protocol based on d-dimer -Continue contact and airborne isolation .... Re-evaluate in am & prn CONDITION: CRITICAL PROGNOSIS: GUARDED CODE STATUS: FULL CODE The high probability of a clinically significant, sudden or life-threatening deterioration of the [respiratory, cardiovascular, hematologic & neurologic] system(s) required my full and direct attention, intervention and personal management. The aggregate critical care time was [32] minutes without overlap. Time includes spent on; [x] Data Review and interpretation [x] Patient assessment and monitoring of vital signs [x] Documentation [x] Medication orders and management Subjective Date of service: 06/06/20 Principal diagnosis: Ac hypoxemic resp failure; COVID-19; Severe Sepsis; Shaggy PNA; Alcohol Abuse Interval history: Patient is seen today for: Acute hypoxemic respiratory failure due to COVID-19; Severe Sepsis; Bilateral pneumonia; Alcohol dependence; Elevated liver function tests Seen and examined at bedside; 24hour events reviewed; nursing and respiratory care staff consulted; no adverse overnight events reported to me; resting in bed; remains on MVS; FiO2 at 55% PEEP +10. Episodes of desaturations that required increased FIO2 to 60%, back down to 55% No bowel movement, on Fentanyl and Midazolam/Propofol. Objective Vital Signs - 12hr 06/06/20 06/06/20 06/06/20 06:00 07:00 08:00 Temperature 98.5 F Pulse Rate 102 H 102 H 102 H Pulse Rate [ 101 H From Monitor] Respiratory 21 21 19 Rate Blood Pressure 95/65 101/65 110/65 O2 Sat by Pulse 97 98 96 Oximetry 06/06/20 06/06/20 06/06/20 08:21 09:00 10:00 Temperature Pulse Rate 98 H 102 H 103 H Pulse Rate [ From Monitor] Respiratory 16 23 Rate Blood Pressure 112/71 114/61 112/71 O2 Sat by Pulse 95 95 100 Oximetry 06/06/20 06/06/20 06/06/20 11:00 11:48 12:00 Temperature 98.4 F Pulse Rate 101 H 103 H 101 H Pulse Rate [ 101 H From Monitor] Respiratory 20 18 Rate Blood Pressure 110/69 108/63 O2 Sat by Pulse 97 98 Oximetry 06/06/20 06/06/20 06/06/20 12:34 13:00 14:00 Temperature Pulse Rate 100 H 99 H 101 H Pulse Rate [ From Monitor] Respiratory 20 20 Rate Blood Pressure 111/66 103/64 106/64 O2 Sat by Pulse 99 98 99 Oximetry 06/06/20 06/06/20 06/06/20 15:00 15:55 16:00 Temperature 98.0 F Pulse Rate 102 H 105 H Pulse Rate [ 102 H From Monitor] Respiratory 19 20 Rate Blood Pressure 115/63 110/65 O2 Sat by Pulse 99 99 Oximetry 06/06/20 16:44 Temperature Pulse Rate 99 H Pulse Rate [ From Monitor] Respiratory Rate Blood Pressure 111/66 O2 Sat by Pulse 97 Oximetry Constitutional: asleep, appears uncomfortable, other (middle aged obese male without significant ventilator dyssynchrony) Eyes: non-icteric ENT: oropharynx moist, other (ETT 24 cm CHILO) Neck: supple, no JVD Effort: normal, mildly labored Ascultation: Bilateral: diminished breath sounds, rhonchi Percussion: Bilateral: not dull Cardiovascular: regular rate and rhythm Gastrointestinal: hypoactive bowel sounds, soft, non-tender, non-distended (protuberant) Integumentary: normal Extremities: no cyanosis, no edema, pulses normal, no ischemia or petechiae Neurologic: non-focal exam, pupils equal and round, CN II-XII normal, motor strength normal and, other (sedated) Psychiatric: other (sedated) CBC and BMP: 06/26/20 02:17 06/26/20 02:17 ABG, PT/INR, D-dimer: ABG ABG pH 7.442 (7.320-7.450) 06/06/20 04:42 POC ABG pCO2 56.1 mmHg (32.0-48.0) H 06/06/20 04:42 ABG pCO2 69.6 mm Hg 06/05/20 12:35 POC ABG pO2 52.5 mmHg (83-108) L 06/06/20 04:42 ABG pO2 127.9 mm Hg (80.0-90.0) H 06/05/20 12:35 POC ABG HCO3 37.4 06/06/20 04:42 ABG O2 Saturation 98.3 % (95.0-99.0) 06/05/20 12:35 PT/INR, D-dimer D-Dimer 1887.82 ng/mlDDU (0-234) H 05/20/20 08:16 Abnormal lab findings: Abnormal Labs 05/09/20 05/09/20 05/09/20 12:59 12:59 12:59 WBC 11.8 H RBC Hgb Hct MCV 96 H MCH 34 H MCHC 35 H RDW Lymph % (Auto) 6.9 L Lymph # (Auto) 0.8 L Seg Neutrophils % 87.5 H Seg Neuts % (Manual) Lymphocytes % (Manual) Nucleated RBC % Seg Neutrophils # 10.3 H Seg Neutrophils # Man Lymphocytes # (Manual) D-Dimer ABG pH POC ABG pCO2 POC ABG pO2 ABG pO2 ABG HCO3 ABG O2 Saturation ABG Base Excess ABG Hemoglobin ABG Oxyhemoglobin ABG Sodium ABG Potassium ABG Chloride ABG Glucose Oxyhemoglobin Sodium 130 L Potassium 3.5 L Chloride 86.4 L Carbon Dioxide BUN 33 H Creatinine 2.3 H Glucose 156 H POC Glucose Lactic Acid Calcium Magnesium Ferritin Total Bilirubin 3.40 H Direct Bilirubin 1.7 H AST 385 H ALT 134 H Alkaline Phosphatase Lactate Dehydrogenase C-Reactive Protein Total Protein Albumin 3.0 L Triglycerides Arterial Blood Glucose Arterial Blood Ionized Calcium Urine WBC (Auto) Coronavirus (PCR) SARS-CoV-2 IgG Ab 05/09/20 05/09/20 05/09/20 12:59 12:59 12:59 WBC RBC Hgb Hct MCV MCH MCHC RDW Lymph % (Auto) Lymph # (Auto) Seg Neutrophils % Seg Neuts % (Manual) Lymphocytes % (Manual) Nucleated RBC % Seg Neutrophils # Seg Neutrophils # Man Lymphocytes # (Manual) D-Dimer 3242.51 H ABG pH POC ABG pCO2 POC ABG pO2 ABG pO2 ABG HCO3 ABG O2 Saturation ABG Base Excess ABG Hemoglobin ABG Oxyhemoglobin ABG Sodium ABG Potassium ABG Chloride ABG Glucose Oxyhemoglobin Sodium Potassium Chloride Carbon Dioxide BUN Creatinine Glucose 158 H POC Glucose Lactic Acid 3.50 H* Calcium Magnesium Ferritin Total Bilirubin Direct Bilirubin AST ALT Alkaline Phosphatase Lactate Dehydrogenase 2166 H C-Reactive Protein 39.00 H Total Protein Albumin Triglycerides Arterial Blood Glucose Arterial Blood Ionized Calcium Urine WBC (Auto) Coronavirus (PCR) SARS-CoV-2 IgG Ab 05/09/20 05/09/20 05/09/20 12:59 14:20 14:20 WBC RBC Hgb Hct MCV MCH MCHC RDW Lymph % (Auto) Lymph # (Auto) Seg Neutrophils % Seg Neuts % (Manual) Lymphocytes % (Manual) Nucleated RBC % Seg Neutrophils # Seg Neutrophils # Man Lymphocytes # (Manual) D-Dimer 2861.78 H ABG pH POC ABG pCO2 POC ABG pO2 ABG pO2 ABG HCO3 ABG O2 Saturation ABG Base Excess ABG Hemoglobin ABG Oxyhemoglobin ABG Sodium ABG Potassium ABG Chloride ABG Glucose Oxyhemoglobin Sodium Potassium Chloride Carbon Dioxide BUN Creatinine Glucose POC Glucose Lactic Acid 2.20 H* Calcium Magnesium Ferritin 11985.0 H Total Bilirubin Direct Bilirubin AST ALT Alkaline Phosphatase Lactate Dehydrogenase C-Reactive Protein Total Protein Albumin Triglycerides Arterial Blood Glucose Arterial Blood Ionized Calcium Urine WBC (Auto) Coronavirus (PCR) SARS-CoV-2 IgG Ab 05/09/20 05/09/20 05/09/20 14:20 14:20 15:56 WBC RBC Hgb Hct MCV MCH MCHC RDW Lymph % (Auto) Lymph # (Auto) Seg Neutrophils % Seg Neuts % (Manual) Lymphocytes % (Manual) Nucleated RBC % Seg Neutrophils # Seg Neutrophils # Man Lymphocytes # (Manual) D-Dimer ABG pH POC ABG pCO2 POC ABG pO2 57.3 L ABG pO2 ABG HCO3 ABG O2 Saturation ABG Base Excess ABG Hemoglobin ABG Oxyhemoglobin 86.3 L ABG Sodium 129.9 L ABG Potassium ABG Chloride ABG Glucose 146 H Oxyhemoglobin Sodium Potassium Chloride Carbon Dioxide BUN Creatinine Glucose 143 H POC Glucose Lactic Acid Calcium Magnesium Ferritin 72649.0 H Total Bilirubin Direct Bilirubin AST ALT Alkaline Phosphatase Lactate Dehydrogenase 1953 H C-Reactive Protein 33.50 H Total Protein Albumin Triglycerides Arterial Blood Glucose 146 H Arterial Blood Ionized Calcium 3.9 L Urine WBC (Auto) Coronavirus (PCR) SARS-CoV-2 IgG Ab 05/10/20 05/10/20 05/10/20 10:32 10:32 18:50 WBC 15.4 H RBC Hgb Hct MCV 97 H MCH 33 H MCHC RDW 13.1 L Lymph % (Auto) Lymph # (Auto) Seg Neutrophils % Seg Neuts % (Manual) 89.0 H Lymphocytes % (Manual) 8.0 L Nucleated RBC % Seg Neutrophils # Seg Neutrophils # Man 13.7 H Lymphocytes # (Manual) D-Dimer ABG pH POC ABG pCO2 POC ABG pO2 ABG pO2 ABG HCO3 ABG O2 Saturation ABG Base Excess ABG Hemoglobin ABG Oxyhemoglobin ABG Sodium ABG Potassium ABG Chloride ABG Glucose Oxyhemoglobin Sodium 136 L Potassium Chloride 97.4 L Carbon Dioxide BUN 37 H Creatinine 1.7 H Glucose 209 H POC Glucose Lactic Acid Calcium Magnesium Ferritin > 2000.0 H Total Bilirubin Direct Bilirubin AST ALT Alkaline Phosphatase Lactate Dehydrogenase C-Reactive Protein Total Protein Albumin Triglycerides Arterial Blood Glucose Arterial Blood Ionized Calcium Urine WBC (Auto) Coronavirus (PCR) SARS-CoV-2 IgG Ab 1105/10/20 05/10/20 18:50 19:00 Unknown WBC RBC Hgb Hct MCV MCH MCHC RDW Lymph % (Auto) Lymph # (Auto) Seg Neutrophils % Seg Neuts % (Manual) Lymphocytes % (Manual) Nucleated RBC % Seg Neutrophils # Seg Neutrophils # Man Lymphocytes # (Manual) D-Dimer > 82878 H ABG pH POC ABG pCO2 POC ABG pO2 ABG pO2 ABG HCO3 ABG O2 Saturation ABG Base Excess ABG Hemoglobin ABG Oxyhemoglobin ABG Sodium ABG Potassium ABG Chloride ABG Glucose Oxyhemoglobin Sodium Potassium Chloride Carbon Dioxide BUN Creatinine Glucose POC Glucose Lactic Acid Calcium Magnesium Ferritin Total Bilirubin Direct Bilirubin AST ALT Alkaline Phosphatase Lactate Dehydrogenase 1879 H C-Reactive Protein 24.80 H Total Protein Albumin Triglycerides Arterial Blood Glucose Arterial Blood Ionized Calcium Urine WBC (Auto) 11.0 H Coronavirus (PCR) SARS-CoV-2 IgG Ab 05/10/20 05/11/20 05/11/20 Unknown 07:30 07:30 WBC RBC Hgb Hct MCV MCH MCHC RDW Lymph % (Auto) Lymph # (Auto) Seg Neutrophils % Seg Neuts % (Manual) Lymphocytes % (Manual) Nucleated RBC % Seg Neutrophils # Seg Neutrophils # Man Lymphocytes # (Manual) D-Dimer > 2000 H ABG pH POC ABG pCO2 POC ABG pO2 ABG pO2 ABG HCO3 ABG O2 Saturation ABG Base Excess ABG Hemoglobin ABG Oxyhemoglobin ABG Sodium ABG Potassium ABG Chloride ABG Glucose Oxyhemoglobin Sodium Potassium Chloride 96.3 L Carbon Dioxide BUN 36 H Creatinine Glucose 161 H POC Glucose Lactic Acid Calcium 8.3 L Magnesium Ferritin Total Bilirubin 1.50 H Direct Bilirubin 0.6 H AST 178 H ALT 111 H Alkaline Phosphatase Lactate Dehydrogenase C-Reactive Protein Total Protein Albumin 3.0 L Triglycerides Arterial Blood Glucose Arterial Blood Ionized Calcium Urine WBC (Auto) Coronavirus (PCR) Positive A SARS-CoV-2 IgG Ab 05/11/20 05/11/20 05/11/20 07:30 07:30 07:30 WBC RBC Hgb Hct MCV MCH MCHC RDW Lymph % (Auto) Lymph # (Auto) Seg Neutrophils % Seg Neuts % (Manual) Lymphocytes % (Manual) Nucleated RBC % Seg Neutrophils # Seg Neutrophils # Man Lymphocytes # (Manual) D-Dimer ABG pH POC ABG pCO2 POC ABG pO2 ABG pO2 ABG HCO3 ABG O2 Saturation ABG Base Excess ABG Hemoglobin ABG Oxyhemoglobin ABG Sodium ABG Potassium ABG Chloride ABG Glucose Oxyhemoglobin Sodium Potassium Chloride Carbon Dioxide BUN Creatinine Glucose POC Glucose Lactic Acid Calcium Magnesium Ferritin 46797.0 H Total Bilirubin Direct Bilirubin AST ALT Alkaline Phosphatase Lactate Dehydrogenase 1523 H C-Reactive Protein 12.90 H Total Protein Albumin Triglycerides Arterial Blood Glucose Arterial Blood Ionized Calcium Urine WBC (Auto) Coronavirus (PCR) SARS-CoV-2 IgG Ab Reactive A 05/13/20 05/13/20 05/15/20 05:20 05:20 08:15 WBC RBC Hgb Hct MCV MCH MCHC RDW Lymph % (Auto) Lymph # (Auto) Seg Neutrophils % Seg Neuts % (Manual) Lymphocytes % (Manual) Nucleated RBC % Seg Neutrophils # Seg Neutrophils # Man Lymphocytes # (Manual) D-Dimer > 05517 H 5318.28 H ABG pH POC ABG pCO2 POC ABG pO2 ABG pO2 ABG HCO3 ABG O2 Saturation ABG Base Excess ABG Hemoglobin ABG Oxyhemoglobin ABG Sodium ABG Potassium ABG Chloride ABG Glucose Oxyhemoglobin Sodium Potassium Chloride Carbon Dioxide 32 H BUN 30 H Creatinine Glucose 156 H POC Glucose Lactic Acid Calcium Magnesium 2.60 H Ferritin Total Bilirubin 1.40 H Direct Bilirubin AST 121 H ALT 119 H Alkaline Phosphatase Lactate Dehydrogenase 957 H C-Reactive Protein 4.00 H Total Protein Albumin 3.0 L Triglycerides Arterial Blood Glucose Arterial Blood Ionized Calcium Urine WBC (Auto) Coronavirus (PCR) SARS-CoV-2 IgG Ab 05/15/20 05/15/20 05/15/20 08:15 08:15 08:15 WBC 12.4 H RBC Hgb Hct MCV 98 H MCH 33 H MCHC RDW Lymph % (Auto) 9.7 L Lymph # (Auto) Seg Neutrophils % 86.8 H Seg Neuts % (Manual) Lymphocytes % (Manual) Nucleated RBC % Seg Neutrophils # 10.8 H Seg Neutrophils # Man Lymphocytes # (Manual) D-Dimer ABG pH POC ABG pCO2 POC ABG pO2 ABG pO2 ABG HCO3 ABG O2 Saturation ABG Base Excess ABG Hemoglobin ABG Oxyhemoglobin ABG Sodium ABG Potassium ABG Chloride ABG Glucose Oxyhemoglobin Sodium Potassium Chloride 94.8 L Carbon Dioxide 32 H BUN 22 H Creatinine Glucose 115 H POC Glucose Lactic Acid Calcium 8.3 L Magnesium Ferritin 2494.0 H Total Bilirubin Direct Bilirubin AST 73 H ALT 121 H Alkaline Phosphatase Lactate Dehydrogenase 835 H C-Reactive Protein 3.40 H Total Protein 6.1 L Albumin 3.0 L Triglycerides Arterial Blood Glucose Arterial Blood Ionized Calcium Urine WBC (Auto) Coronavirus (PCR) SARS-CoV-2 IgG Ab 05/17/20 05/17/20 05/17/20 05:50 05:50 05:50 WBC RBC Hgb Hct MCV MCH MCHC RDW Lymph % (Auto) Lymph # (Auto) Seg Neutrophils % Seg Neuts % (Manual) Lymphocytes % (Manual) Nucleated RBC % Seg Neutrophils # Seg Neutrophils # Man Lymphocytes # (Manual) D-Dimer 2911.42 H ABG pH POC ABG pCO2 POC ABG pO2 ABG pO2 ABG HCO3 ABG O2 Saturation ABG Base Excess ABG Hemoglobin ABG Oxyhemoglobin ABG Sodium ABG Potassium ABG Chloride ABG Glucose Oxyhemoglobin Sodium 136 L Potassium Chloride 96.0 L Carbon Dioxide 34 H BUN 22 H Creatinine Glucose 140 H POC Glucose Lactic Acid Calcium Magnesium Ferritin 2082.0 H Total Bilirubin Direct Bilirubin AST ALT 75 H Alkaline Phosphatase Lactate Dehydrogenase 601 H C-Reactive Protein 2.70 H Total Protein Albumin 2.9 L Triglycerides Arterial Blood Glucose Arterial Blood Ionized Calcium Urine WBC (Auto) Coronavirus (PCR) SARS-CoV-2 IgG Ab 05/17/20 05/18/20 05/20/20 05:50 12:22 08:16 WBC RBC Hgb Hct MCV 98 H MCH 33 H MCHC RDW Lymph % (Auto) 8.0 L Lymph # (Auto) 0.8 L Seg Neutrophils % 89.3 H Seg Neuts % (Manual) Lymphocytes % (Manual) Nucleated RBC % Seg Neutrophils # 8.8 H Seg Neutrophils # Man Lymphocytes # (Manual) D-Dimer 1887.82 H ABG pH POC ABG pCO2 POC ABG pO2 ABG pO2 ABG HCO3 ABG O2 Saturation ABG Base Excess ABG Hemoglobin ABG Oxyhemoglobin ABG Sodium ABG Potassium ABG Chloride ABG Glucose Oxyhemoglobin Sodium Potassium Chloride Carbon Dioxide BUN Creatinine Glucose POC Glucose 178 H Lactic Acid Calcium Magnesium Ferritin Total Bilirubin Direct Bilirubin AST ALT Alkaline Phosphatase Lactate Dehydrogenase C-Reactive Protein Total Protein Albumin Triglycerides Arterial Blood Glucose Arterial Blood Ionized Calcium Urine WBC (Auto) Coronavirus (PCR) SARS-CoV-2 IgG Ab 05/20/20 05/20/20 05/21/20 08:16 08:16 21:10 WBC RBC Hgb Hct MCV MCH MCHC RDW Lymph % (Auto) Lymph # (Auto) Seg Neutrophils % Seg Neuts % (Manual) Lymphocytes % (Manual) Nucleated RBC % Seg Neutrophils # Seg Neutrophils # Man Lymphocytes # (Manual) D-Dimer ABG pH 7.483 H POC ABG pCO2 POC ABG pO2 ABG pO2 50.0 L ABG HCO3 27.0 H ABG O2 Saturation 86.2 L ABG Base Excess 3.7 H ABG Hemoglobin ABG Oxyhemoglobin ABG Sodium ABG Potassium ABG Chloride ABG Glucose Oxyhemoglobin 84.2 L Sodium Potassium Chloride Carbon Dioxide BUN Creatinine Glucose POC Glucose Lactic Acid Calcium Magnesium Ferritin 1960.0 H Total Bilirubin Direct Bilirubin AST ALT Alkaline Phosphatase Lactate Dehydrogenase 705 H C-Reactive Protein 3.10 H Total Protein Albumin Triglycerides Arterial Blood Glucose Arterial Blood Ionized Calcium Urine WBC (Auto) Coronavirus (PCR) SARS-CoV-2 IgG Ab 05/22/20 05/22/20 05/22/20 04:01 07:53 07:53 WBC 19.2 H RBC Hgb Hct MCV 98 H MCH 34 H MCHC RDW Lymph % (Auto) Lymph # (Auto) Seg Neutrophils % Seg Neuts % (Manual) 96.0 H Lymphocytes % (Manual) 1.0 L Nucleated RBC % Seg Neutrophils # Seg Neutrophils # Man 18.4 H Lymphocytes # (Manual) 0.2 L D-Dimer ABG pH POC ABG pCO2 53.8 H POC ABG pO2 125.5 H ABG pO2 ABG HCO3 ABG O2 Saturation ABG Base Excess ABG Hemoglobin ABG Oxyhemoglobin ABG Sodium 131.8 L ABG Potassium 4.8 H ABG Chloride 94.0 L ABG Glucose 163 H Oxyhemoglobin Sodium 131 L Potassium Chloride 93.4 L Carbon Dioxide BUN 40 H Creatinine Glucose 176 H POC Glucose Lactic Acid Calcium Magnesium 2.70 H Ferritin Total Bilirubin 1.80 H Direct Bilirubin AST 45 H ALT 116 H Alkaline Phosphatase 181 H Lactate Dehydrogenase C-Reactive Protein Total Protein Albumin 2.6 L Triglycerides Arterial Blood Glucose 163 H Arterial Blood Ionized Calcium 4.5 L Urine WBC (Auto) Coronavirus (PCR) SARS-CoV-2 IgG Ab 05/23/20 05/24/20 05/24/20 04:17 03:07 04:08 WBC RBC Hgb Hct MCV MCH MCHC RDW Lymph % (Auto) Lymph # (Auto) Seg Neutrophils % Seg Neuts % (Manual) Lymphocytes % (Manual) Nucleated RBC % Seg Neutrophils # Seg Neutrophils # Man Lymphocytes # (Manual) D-Dimer ABG pH 7.328 L POC ABG pCO2 POC ABG pO2 ABG pO2 72.8 L 73.4 L ABG HCO3 31.0 H 34.0 H ABG O2 Saturation 93.5 L ABG Base Excess 3.5 H 7.7 H ABG Hemoglobin 13.3 L 12.1 L ABG Oxyhemoglobin ABG Sodium ABG Potassium ABG Chloride ABG Glucose Oxyhemoglobin 91.5 L 94.3 L Sodium Potassium Chloride Carbon Dioxide BUN Creatinine Glucose POC Glucose 155 H Lactic Acid Calcium Magnesium Ferritin Total Bilirubin Direct Bilirubin AST ALT Alkaline Phosphatase Lactate Dehydrogenase C-Reactive Protein Total Protein Albumin Triglycerides Arterial Blood Glucose Arterial Blood Ionized Calcium Urine WBC (Auto) Coronavirus (PCR) SARS-CoV-2 IgG Ab 05/24/20 05/24/20 05/24/20 09:33 12:21 17:52 WBC RBC Hgb Hct MCV MCH MCHC RDW Lymph % (Auto) Lymph # (Auto) Seg Neutrophils % Seg Neuts % (Manual) Lymphocytes % (Manual) Nucleated RBC % Seg Neutrophils # Seg Neutrophils # Man Lymphocytes # (Manual) D-Dimer ABG pH POC ABG pCO2 POC ABG pO2 ABG pO2 ABG HCO3 ABG O2 Saturation ABG Base Excess ABG Hemoglobin ABG Oxyhemoglobin ABG Sodium ABG Potassium ABG Chloride ABG Glucose Oxyhemoglobin Sodium Potassium Chloride Carbon Dioxide 34 H D BUN 28 H Creatinine 0.7 L Glucose 168 H POC Glucose 173 H 164 H Lactic Acid Calcium Magnesium Ferritin Total Bilirubin Direct Bilirubin AST ALT Alkaline Phosphatase Lactate Dehydrogenase C-Reactive Protein Total Protein Albumin Triglycerides Arterial Blood Glucose Arterial Blood Ionized Calcium Urine WBC (Auto) Coronavirus (PCR) SARS-CoV-2 IgG Ab 05/24/20 05/25/20 05/25/20 23:47 04:29 05:46 WBC RBC Hgb Hct MCV MCH MCHC RDW Lymph % (Auto) Lymph # (Auto) Seg Neutrophils % Seg Neuts % (Manual) Lymphocytes % (Manual) Nucleated RBC % Seg Neutrophils # Seg Neutrophils # Man Lymphocytes # (Manual) D-Dimer ABG pH POC ABG pCO2 68.6 H POC ABG pO2 ABG pO2 ABG HCO3 ABG O2 Saturation ABG Base Excess ABG Hemoglobin ABG Oxyhemoglobin ABG Sodium ABG Potassium 4.7 H ABG Chloride ABG Glucose 226 H Oxyhemoglobin Sodium Potassium Chloride Carbon Dioxide BUN Creatinine Glucose POC Glucose 171 H 201 H Lactic Acid Calcium Magnesium Ferritin Total Bilirubin Direct Bilirubin AST ALT Alkaline Phosphatase Lactate Dehydrogenase C-Reactive Protein Total Protein Albumin Triglycerides Arterial Blood Glucose 226 H Arterial Blood Ionized Calcium Urine WBC (Auto) Coronavirus (PCR) SARS-CoV-2 IgG Ab 05/25/20 05/25/20 05/25/20 08:37 08:37 12:38 WBC 12.0 H RBC 3.64 L Hgb Hct MCV 99 H MCH 33 H MCHC RDW Lymph % (Auto) Lymph # (Auto) Seg Neutrophils % Seg Neuts % (Manual) Lymphocytes % (Manual) Nucleated RBC % Seg Neutrophils # Seg Neutrophils # Man Lymphocytes # (Manual) D-Dimer ABG pH POC ABG pCO2 POC ABG pO2 ABG pO2 ABG HCO3 ABG O2 Saturation ABG Base Excess ABG Hemoglobin ABG Oxyhemoglobin ABG Sodium ABG Potassium ABG Chloride ABG Glucose Oxyhemoglobin Sodium Potassium Chloride 97.3 L Carbon Dioxide 35 H BUN 25 H Creatinine 0.7 L Glucose 191 H POC Glucose 182 H Lactic Acid Calcium Magnesium Ferritin Total Bilirubin Direct Bilirubin AST ALT Alkaline Phosphatase Lactate Dehydrogenase C-Reactive Protein Total Protein Albumin Triglycerides Arterial Blood Glucose Arterial Blood Ionized Calcium Urine WBC (Auto) Coronavirus (PCR) SARS-CoV-2 IgG Ab 05/25/20 05/26/20 05/26/20 18:16 00:06 04:50 WBC RBC Hgb Hct MCV MCH MCHC RDW Lymph % (Auto) Lymph # (Auto) Seg Neutrophils % Seg Neuts % (Manual) Lymphocytes % (Manual) Nucleated RBC % Seg Neutrophils # Seg Neutrophils # Man Lymphocytes # (Manual) D-Dimer ABG pH POC ABG pCO2 POC ABG pO2 ABG pO2 221.5 H ABG HCO3 40.4 H ABG O2 Saturation 99.3 H ABG Base Excess 12.8 H ABG Hemoglobin 10.4 L ABG Oxyhemoglobin ABG Sodium ABG Potassium ABG Chloride ABG Glucose Oxyhemoglobin Sodium Potassium Chloride Carbon Dioxide BUN Creatinine Glucose POC Glucose 176 H 152 H Lactic Acid Calcium Magnesium Ferritin Total Bilirubin Direct Bilirubin AST ALT Alkaline Phosphatase Lactate Dehydrogenase C-Reactive Protein Total Protein Albumin Triglycerides Arterial Blood Glucose Arterial Blood Ionized Calcium Urine WBC (Auto) Coronavirus (PCR) SARS-CoV-2 IgG Ab 05/26/20 05/26/20 05/26/20 06:11 07:51 07:51 WBC 13.4 H RBC 3.64 L Hgb Hct MCV 98 H MCH 33 H MCHC RDW Lymph % (Auto) Lymph # (Auto) Seg Neutrophils % Seg Neuts % (Manual) Lymphocytes % (Manual) Nucleated RBC % Seg Neutrophils # Seg Neutrophils # Man Lymphocytes # (Manual) D-Dimer ABG pH POC ABG pCO2 POC ABG pO2 ABG pO2 ABG HCO3 ABG O2 Saturation ABG Base Excess ABG Hemoglobin ABG Oxyhemoglobin ABG Sodium ABG Potassium ABG Chloride ABG Glucose Oxyhemoglobin Sodium Potassium Chloride 96.6 L Carbon Dioxide 39 H BUN 29 H Creatinine 0.7 L Glucose 174 H POC Glucose 165 H Lactic Acid Calcium Magnesium Ferritin Total Bilirubin Direct Bilirubin AST ALT Alkaline Phosphatase Lactate Dehydrogenase C-Reactive Protein Total Protein Albumin Triglycerides Arterial Blood Glucose Arterial Blood Ionized Calcium Urine WBC (Auto) Coronavirus (PCR) SARS-CoV-2 IgG Ab 05/26/20 05/27/20 05/27/20 23:23 03:43 05:29 WBC RBC Hgb Hct MCV MCH MCHC RDW Lymph % (Auto) Lymph # (Auto) Seg Neutrophils % Seg Neuts % (Manual) Lymphocytes % (Manual) Nucleated RBC % Seg Neutrophils # Seg Neutrophils # Man Lymphocytes # (Manual) D-Dimer ABG pH 7.480 H POC ABG pCO2 52.4 H POC ABG pO2 61.4 L ABG pO2 ABG HCO3 ABG O2 Saturation ABG Base Excess ABG Hemoglobin ABG Oxyhemoglobin ABG Sodium 134.9 L ABG Potassium ABG Chloride 95.0 L ABG Glucose 221 H Oxyhemoglobin Sodium Potassium Chloride Carbon Dioxide BUN Creatinine Glucose POC Glucose 169 H 227 H Lactic Acid Calcium Magnesium Ferritin Total Bilirubin Direct Bilirubin AST ALT Alkaline Phosphatase Lactate Dehydrogenase C-Reactive Protein Total Protein Albumin Triglycerides Arterial Blood Glucose 221 H Arterial Blood Ionized Calcium 4.5 L Urine WBC (Auto) Coronavirus (PCR) SARS-CoV-2 IgG Ab 05/27/20 05/27/20 05/27/20 07:19 12:18 13:50 WBC RBC Hgb Hct MCV MCH MCHC RDW Lymph % (Auto) Lymph # (Auto) Seg Neutrophils % Seg Neuts % (Manual) Lymphocytes % (Manual) Nucleated RBC % Seg Neutrophils # Seg Neutrophils # Man Lymphocytes # (Manual) D-Dimer ABG pH POC ABG pCO2 POC ABG pO2 ABG pO2 ABG HCO3 ABG O2 Saturation ABG Base Excess ABG Hemoglobin ABG Oxyhemoglobin ABG Sodium ABG Potassium ABG Chloride ABG Glucose Oxyhemoglobin Sodium Potassium Chloride Carbon Dioxide BUN Creatinine Glucose POC Glucose 114 H 148 H Lactic Acid Calcium Magnesium Ferritin Total Bilirubin Direct Bilirubin AST ALT Alkaline Phosphatase Lactate Dehydrogenase C-Reactive Protein Total Protein Albumin Triglycerides 247 H Arterial Blood Glucose Arterial Blood Ionized Calcium Urine WBC (Auto) Coronavirus (PCR) SARS-CoV-2 IgG Ab 05/28/20 05/28/20 05/28/20 00:13 04:16 05:22 WBC RBC Hgb Hct MCV MCH MCHC RDW Lymph % (Auto) Lymph # (Auto) Seg Neutrophils % Seg Neuts % (Manual) Lymphocytes % (Manual) Nucleated RBC % Seg Neutrophils # Seg Neutrophils # Man Lymphocytes # (Manual) D-Dimer ABG pH POC ABG pCO2 64.4 H POC ABG pO2 60.5 L ABG pO2 ABG HCO3 ABG O2 Saturation ABG Base Excess ABG Hemoglobin ABG Oxyhemoglobin ABG Sodium ABG Potassium ABG Chloride 95.0 L ABG Glucose 209 H Oxyhemoglobin Sodium Potassium Chloride Carbon Dioxide BUN Creatinine Glucose POC Glucose 155 H 186 H Lactic Acid Calcium Magnesium Ferritin Total Bilirubin Direct Bilirubin AST ALT Alkaline Phosphatase Lactate Dehydrogenase C-Reactive Protein Total Protein Albumin Triglycerides Arterial Blood Glucose 209 H Arterial Blood Ionized Calcium Urine WBC (Auto) Coronavirus (PCR) SARS-CoV-2 IgG Ab 05/28/20 05/28/20 05/29/20 12:45 17:39 00:37 WBC RBC Hgb Hct MCV MCH MCHC RDW Lymph % (Auto) Lymph # (Auto) Seg Neutrophils % Seg Neuts % (Manual) Lymphocytes % (Manual) Nucleated RBC % Seg Neutrophils # Seg Neutrophils # Man Lymphocytes # (Manual) D-Dimer ABG pH POC ABG pCO2 POC ABG pO2 ABG pO2 ABG HCO3 ABG O2 Saturation ABG Base Excess ABG Hemoglobin ABG Oxyhemoglobin ABG Sodium ABG Potassium ABG Chloride ABG Glucose Oxyhemoglobin Sodium Potassium Chloride Carbon Dioxide BUN Creatinine Glucose POC Glucose 143 H 164 H 221 H Lactic Acid Calcium Magnesium Ferritin Total Bilirubin Direct Bilirubin AST ALT Alkaline Phosphatase Lactate Dehydrogenase C-Reactive Protein Total Protein Albumin Triglycerides Arterial Blood Glucose Arterial Blood Ionized Calcium Urine WBC (Auto) Coronavirus (PCR) SARS-CoV-2 IgG Ab 05/29/20 05/29/20 05/29/20 04:15 05:33 12:34 WBC RBC Hgb Hct MCV MCH MCHC RDW Lymph % (Auto) Lymph # (Auto) Seg Neutrophils % Seg Neuts % (Manual) Lymphocytes % (Manual) Nucleated RBC % Seg Neutrophils # Seg Neutrophils # Man Lymphocytes # (Manual) D-Dimer ABG pH 7.463 H POC ABG pCO2 56.3 H POC ABG pO2 81.2 L ABG pO2 ABG HCO3 ABG O2 Saturation ABG Base Excess ABG Hemoglobin ABG Oxyhemoglobin ABG Sodium ABG Potassium ABG Chloride 96.0 L ABG Glucose 194 H Oxyhemoglobin Sodium Potassium Chloride Carbon Dioxide BUN Creatinine Glucose POC Glucose 133 H 221 H Lactic Acid Calcium Magnesium Ferritin Total Bilirubin Direct Bilirubin AST ALT Alkaline Phosphatase Lactate Dehydrogenase C-Reactive Protein Total Protein Albumin Triglycerides Arterial Blood Glucose 194 H Arterial Blood Ionized Calcium 4.5 L Urine WBC (Auto) Coronavirus (PCR) SARS-CoV-2 IgG Ab 05/29/20 05/30/20 05/30/20 18:07 00:12 05:38 WBC RBC Hgb Hct MCV MCH MCHC RDW Lymph % (Auto) Lymph # (Auto) Seg Neutrophils % Seg Neuts % (Manual) Lymphocytes % (Manual) Nucleated RBC % Seg Neutrophils # Seg Neutrophils # Man Lymphocytes # (Manual) D-Dimer ABG pH POC ABG pCO2 POC ABG pO2 ABG pO2 ABG HCO3 ABG O2 Saturation ABG Base Excess ABG Hemoglobin ABG Oxyhemoglobin ABG Sodium ABG Potassium ABG Chloride ABG Glucose Oxyhemoglobin Sodium Potassium Chloride Carbon Dioxide BUN Creatinine Glucose POC Glucose 162 H 190 H 208 H Lactic Acid Calcium Magnesium Ferritin Total Bilirubin Direct Bilirubin AST ALT Alkaline Phosphatase Lactate Dehydrogenase C-Reactive Protein Total Protein Albumin Triglycerides Arterial Blood Glucose Arterial Blood Ionized Calcium Urine WBC (Auto) Coronavirus (PCR) SARS-CoV-2 IgG Ab 05/30/20 05/30/20 05/30/20 09:30 11:35 11:54 WBC 12.4 H RBC 3.48 L Hgb 11.3 L Hct 34.6 L MCV 99 H MCH 33 H MCHC RDW Lymph % (Auto) Lymph # (Auto) Seg Neutrophils % Seg Neuts % (Manual) Lymphocytes % (Manual) Nucleated RBC % Seg Neutrophils # Seg Neutrophils # Man Lymphocytes # (Manual) D-Dimer ABG pH 7.455 H POC ABG pCO2 57.5 H POC ABG pO2 81.5 L ABG pO2 ABG HCO3 ABG O2 Saturation ABG Base Excess ABG Hemoglobin ABG Oxyhemoglobin ABG Sodium ABG Potassium ABG Chloride 96.0 L ABG Glucose 204 H Oxyhemoglobin Sodium Potassium Chloride Carbon Dioxide BUN Creatinine Glucose POC Glucose 183 H Lactic Acid Calcium Magnesium Ferritin Total Bilirubin Direct Bilirubin AST ALT Alkaline Phosphatase Lactate Dehydrogenase C-Reactive Protein Total Protein Albumin Triglycerides Arterial Blood Glucose 204 H Arterial Blood Ionized Calcium Urine WBC (Auto) Coronavirus (PCR) SARS-CoV-2 IgG Ab 05/30/20 05/31/20 05/31/20 18:01 00:10 03:22 WBC RBC Hgb Hct MCV MCH MCHC RDW Lymph % (Auto) Lymph # (Auto) Seg Neutrophils % Seg Neuts % (Manual) Lymphocytes % (Manual) Nucleated RBC % Seg Neutrophils # Seg Neutrophils # Man Lymphocytes # (Manual) D-Dimer ABG pH POC ABG pCO2 60.4 H POC ABG pO2 71.5 L ABG pO2 ABG HCO3 ABG O2 Saturation ABG Base Excess ABG Hemoglobin ABG Oxyhemoglobin ABG Sodium ABG Potassium ABG Chloride 96.0 L ABG Glucose 169 H Oxyhemoglobin Sodium Potassium Chloride Carbon Dioxide BUN Creatinine Glucose POC Glucose 184 H 135 H Lactic Acid Calcium Magnesium Ferritin Total Bilirubin Direct Bilirubin AST ALT Alkaline Phosphatase Lactate Dehydrogenase C-Reactive Protein Total Protein Albumin Triglycerides Arterial Blood Glucose 169 H Arterial Blood Ionized Calcium 4.5 L Urine WBC (Auto) Coronavirus (PCR) SARS-CoV-2 IgG Ab 05/31/20 05/31/20 05/31/20 05:24 11:18 14:41 WBC RBC Hgb Hct MCV MCH MCHC RDW Lymph % (Auto) Lymph # (Auto) Seg Neutrophils % Seg Neuts % (Manual) Lymphocytes % (Manual) Nucleated RBC % Seg Neutrophils # Seg Neutrophils # Man Lymphocytes # (Manual) D-Dimer ABG pH POC ABG pCO2 POC ABG pO2 ABG pO2 ABG HCO3 ABG O2 Saturation ABG Base Excess ABG Hemoglobin ABG Oxyhemoglobin ABG Sodium ABG Potassium ABG Chloride ABG Glucose Oxyhemoglobin Sodium Potassium Chloride 96.8 L Carbon Dioxide 37 H BUN 31 H Creatinine 0.6 L Glucose 213 H POC Glucose 164 H 208 H Lactic Acid Calcium Magnesium Ferritin Total Bilirubin Direct Bilirubin AST ALT Alkaline Phosphatase Lactate Dehydrogenase C-Reactive Protein Total Protein Albumin Triglycerides Arterial Blood Glucose Arterial Blood Ionized Calcium Urine WBC (Auto) Coronavirus (PCR) SARS-CoV-2 IgG Ab 05/31/20 05/31/20 06/01/20 17:37 23:47 03:48 WBC RBC Hgb Hct MCV MCH MCHC RDW Lymph % (Auto) Lymph # (Auto) Seg Neutrophils % Seg Neuts % (Manual) Lymphocytes % (Manual) Nucleated RBC % Seg Neutrophils # Seg Neutrophils # Man Lymphocytes # (Manual) D-Dimer ABG pH POC ABG pCO2 59.7 H POC ABG pO2 73.9 L ABG pO2 ABG HCO3 ABG O2 Saturation ABG Base Excess ABG Hemoglobin ABG Oxyhemoglobin ABG Sodium ABG Potassium ABG Chloride 95.0 L ABG Glucose 256 H Oxyhemoglobin Sodium Potassium Chloride Carbon Dioxide BUN Creatinine Glucose POC Glucose 168 H 178 H Lactic Acid Calcium Magnesium Ferritin Total Bilirubin Direct Bilirubin AST ALT Alkaline Phosphatase Lactate Dehydrogenase C-Reactive Protein Total Protein Albumin Triglycerides Arterial Blood Glucose 256 H Arterial Blood Ionized Calcium Urine WBC (Auto) Coronavirus (PCR) SARS-CoV-2 IgG Ab 06/01/20 06/01/20 06/01/20 05:01 07:47 07:47 WBC 14.4 H RBC 3.46 L Hgb 11.1 L Hct 34.3 L MCV 99 H MCH MCHC RDW Lymph % (Auto) Lymph # (Auto) Seg Neutrophils % Seg Neuts % (Manual) 86.0 H Lymphocytes % (Manual) 9.0 L Nucleated RBC % Seg Neutrophils # Seg Neutrophils # Man 12.4 H Lymphocytes # (Manual) D-Dimer ABG pH POC ABG pCO2 POC ABG pO2 ABG pO2 ABG HCO3 ABG O2 Saturation ABG Base Excess ABG Hemoglobin ABG Oxyhemoglobin ABG Sodium ABG Potassium ABG Chloride ABG Glucose Oxyhemoglobin Sodium Potassium Chloride Carbon Dioxide BUN Creatinine Glucose POC Glucose 197 H Lactic Acid Calcium Magnesium Ferritin Total Bilirubin Direct Bilirubin AST ALT Alkaline Phosphatase Lactate Dehydrogenase C-Reactive Protein Total Protein Albumin Triglycerides 244 H Arterial Blood Glucose Arterial Blood Ionized Calcium Urine WBC (Auto) Coronavirus (PCR) SARS-CoV-2 IgG Ab 06/01/20 06/01/20 06/01/20 07:47 11:46 18:15 WBC RBC Hgb Hct MCV MCH MCHC RDW Lymph % (Auto) Lymph # (Auto) Seg Neutrophils % Seg Neuts % (Manual) Lymphocytes % (Manual) Nucleated RBC % Seg Neutrophils # Seg Neutrophils # Man Lymphocytes # (Manual) D-Dimer ABG pH POC ABG pCO2 POC ABG pO2 ABG pO2 ABG HCO3 ABG O2 Saturation ABG Base Excess ABG Hemoglobin ABG Oxyhemoglobin ABG Sodium ABG Potassium ABG Chloride ABG Glucose Oxyhemoglobin Sodium Potassium Chloride 95.4 L Carbon Dioxide 35 H BUN 30 H Creatinine 0.5 L Glucose 214 H POC Glucose 181 H 221 H Lactic Acid Calcium Magnesium Ferritin Total Bilirubin Direct Bilirubin AST 54 H ALT 235 H Alkaline Phosphatase Lactate Dehydrogenase C-Reactive Protein Total Protein Albumin 2.9 L Triglycerides Arterial Blood Glucose Arterial Blood Ionized Calcium Urine WBC (Auto) Coronavirus (PCR) SARS-CoV-2 IgG Ab 06/01/20 06/02/20 06/02/20 23:12 04:00 05:31 WBC RBC Hgb Hct MCV MCH MCHC RDW Lymph % (Auto) Lymph # (Auto) Seg Neutrophils % Seg Neuts % (Manual) Lymphocytes % (Manual) Nucleated RBC % Seg Neutrophils # Seg Neutrophils # Man Lymphocytes # (Manual) D-Dimer ABG pH 7.465 H POC ABG pCO2 POC ABG pO2 ABG pO2 203.4 H ABG HCO3 41.2 H ABG O2 Saturation 99.3 H ABG Base Excess 15.1 H ABG Hemoglobin 11.5 L ABG Oxyhemoglobin ABG Sodium ABG Potassium ABG Chloride ABG Glucose Oxyhemoglobin Sodium Potassium Chloride Carbon Dioxide BUN Creatinine Glucose POC Glucose 197 H 184 H Lactic Acid Calcium Magnesium Ferritin Total Bilirubin Direct Bilirubin AST ALT Alkaline Phosphatase Lactate Dehydrogenase C-Reactive Protein Total Protein Albumin Triglycerides Arterial Blood Glucose Arterial Blood Ionized Calcium Urine WBC (Auto) Coronavirus (PCR) SARS-CoV-2 IgG Ab 06/02/20 06/02/20 06/02/20 11:49 18:06 23:00 WBC RBC Hgb Hct MCV MCH MCHC RDW Lymph % (Auto) Lymph # (Auto) Seg Neutrophils % Seg Neuts % (Manual) Lymphocytes % (Manual) Nucleated RBC % Seg Neutrophils # Seg Neutrophils # Man Lymphocytes # (Manual) D-Dimer ABG pH POC ABG pCO2 POC ABG pO2 ABG pO2 ABG HCO3 ABG O2 Saturation ABG Base Excess ABG Hemoglobin ABG Oxyhemoglobin ABG Sodium ABG Potassium ABG Chloride ABG Glucose Oxyhemoglobin Sodium Potassium Chloride Carbon Dioxide BUN Creatinine Glucose POC Glucose 195 H 177 H 228 H Lactic Acid Calcium Magnesium Ferritin Total Bilirubin Direct Bilirubin AST ALT Alkaline Phosphatase Lactate Dehydrogenase C-Reactive Protein Total Protein Albumin Triglycerides Arterial Blood Glucose Arterial Blood Ionized Calcium Urine WBC (Auto) Coronavirus (PCR) SARS-CoV-2 IgG Ab 06/03/20 06/03/20 06/03/20 03:58 05:19 12:21 WBC RBC Hgb Hct MCV MCH MCHC RDW Lymph % (Auto) Lymph # (Auto) Seg Neutrophils % Seg Neuts % (Manual) Lymphocytes % (Manual) Nucleated RBC % Seg Neutrophils # Seg Neutrophils # Man Lymphocytes # (Manual) D-Dimer ABG pH POC ABG pCO2 POC ABG pO2 ABG pO2 171.0 H ABG HCO3 42.8 H ABG O2 Saturation ABG Base Excess 15.6 H ABG Hemoglobin 12.3 L ABG Oxyhemoglobin ABG Sodium ABG Potassium ABG Chloride ABG Glucose Oxyhemoglobin Sodium Potassium Chloride Carbon Dioxide BUN Creatinine Glucose POC Glucose 122 H 207 H Lactic Acid Calcium Magnesium Ferritin Total Bilirubin Direct Bilirubin AST ALT Alkaline Phosphatase Lactate Dehydrogenase C-Reactive Protein Total Protein Albumin Triglycerides Arterial Blood Glucose Arterial Blood Ionized Calcium Urine WBC (Auto) Coronavirus (PCR) SARS-CoV-2 IgG Ab 06/03/20 06/03/20 06/04/20 17:27 23:50 03:55 WBC RBC Hgb Hct MCV MCH MCHC RDW Lymph % (Auto) Lymph # (Auto) Seg Neutrophils % Seg Neuts % (Manual) Lymphocytes % (Manual) Nucleated RBC % Seg Neutrophils # Seg Neutrophils # Man Lymphocytes # (Manual) D-Dimer ABG pH POC ABG pCO2 POC ABG pO2 ABG pO2 117.2 H ABG HCO3 42.4 H ABG O2 Saturation ABG Base Excess 15.3 H ABG Hemoglobin 10.5 L ABG Oxyhemoglobin ABG Sodium ABG Potassium ABG Chloride ABG Glucose Oxyhemoglobin Sodium Potassium Chloride Carbon Dioxide BUN Creatinine Glucose POC Glucose 157 H 214 H Lactic Acid Calcium Magnesium Ferritin Total Bilirubin Direct Bilirubin AST ALT Alkaline Phosphatase Lactate Dehydrogenase C-Reactive Protein Total Protein Albumin Triglycerides Arterial Blood Glucose Arterial Blood Ionized Calcium Urine WBC (Auto) Coronavirus (PCR) SARS-CoV-2 IgG Ab 1106/04/20 06/04/20 05:49 11:41 17:30 WBC RBC Hgb Hct MCV MCH MCHC RDW Lymph % (Auto) Lymph # (Auto) Seg Neutrophils % Seg Neuts % (Manual) Lymphocytes % (Manual) Nucleated RBC % Seg Neutrophils # Seg Neutrophils # Man Lymphocytes # (Manual) D-Dimer ABG pH POC ABG pCO2 POC ABG pO2 ABG pO2 ABG HCO3 ABG O2 Saturation ABG Base Excess ABG Hemoglobin ABG Oxyhemoglobin ABG Sodium ABG Potassium ABG Chloride ABG Glucose Oxyhemoglobin Sodium Potassium Chloride Carbon Dioxide BUN Creatinine Glucose POC Glucose 149 H 233 H 156 H Lactic Acid Calcium Magnesium Ferritin Total Bilirubin Direct Bilirubin AST ALT Alkaline Phosphatase Lactate Dehydrogenase C-Reactive Protein Total Protein Albumin Triglycerides Arterial Blood Glucose Arterial Blood Ionized Calcium Urine WBC (Auto) Coronavirus (PCR) SARS-CoV-2 IgG Ab 06/04/20 06/04/20 06/04/20 19:01 20:53 23:41 WBC RBC 3.18 L Hgb 10.8 L Hct 31.8 L MCV 100 H MCH 34 H MCHC RDW Lymph % (Auto) Lymph # (Auto) Seg Neutrophils % Seg Neuts % (Manual) 86.0 H Lymphocytes % (Manual) 10.0 L Nucleated RBC % 1.0 H Seg Neutrophils # Seg Neutrophils # Man 8.5 H Lymphocytes # (Manual) 1.0 L D-Dimer ABG pH POC ABG pCO2 POC ABG pO2 ABG pO2 ABG HCO3 ABG O2 Saturation ABG Base Excess ABG Hemoglobin ABG Oxyhemoglobin ABG Sodium ABG Potassium ABG Chloride ABG Glucose Oxyhemoglobin Sodium Potassium 3.4 L D Chloride 96.5 L Carbon Dioxide 41 H* BUN 27 H Creatinine 0.5 L Glucose 173 H POC Glucose 217 H Lactic Acid Calcium Magnesium Ferritin Total Bilirubin Direct Bilirubin AST ALT Alkaline Phosphatase Lactate Dehydrogenase C-Reactive Protein Total Protein Albumin Triglycerides Arterial Blood Glucose Arterial Blood Ionized Calcium Urine WBC (Auto) Coronavirus (PCR) SARS-CoV-2 IgG Ab 06/05/20 06/05/20 06/05/20 06:05 11:54 12:35 WBC RBC Hgb Hct MCV MCH MCHC RDW Lymph % (Auto) Lymph # (Auto) Seg Neutrophils % Seg Neuts % (Manual) Lymphocytes % (Manual) Nucleated RBC % Seg Neutrophils # Seg Neutrophils # Man Lymphocytes # (Manual) D-Dimer ABG pH POC ABG pCO2 POC ABG pO2 ABG pO2 127.9 H ABG HCO3 41.1 H ABG O2 Saturation ABG Base Excess 13.0 H ABG Hemoglobin 13.4 L ABG Oxyhemoglobin ABG Sodium ABG Potassium ABG Chloride ABG Glucose Oxyhemoglobin Sodium Potassium Chloride Carbon Dioxide BUN Creatinine Glucose POC Glucose 137 H 211 H Lactic Acid Calcium Magnesium Ferritin Total Bilirubin Direct Bilirubin AST ALT Alkaline Phosphatase Lactate Dehydrogenase C-Reactive Protein Total Protein Albumin Triglycerides Arterial Blood Glucose Arterial Blood Ionized Calcium Urine WBC (Auto) Coronavirus (PCR) SARS-CoV-2 IgG Ab 06/05/20 06/05/20 06/06/20 17:03 23:49 04:42 WBC RBC Hgb Hct MCV MCH MCHC RDW Lymph % (Auto) Lymph # (Auto) Seg Neutrophils % Seg Neuts % (Manual) Lymphocytes % (Manual) Nucleated RBC % Seg Neutrophils # Seg Neutrophils # Man Lymphocytes # (Manual) D-Dimer ABG pH POC ABG pCO2 56.1 H POC ABG pO2 52.5 L ABG pO2 ABG HCO3 ABG O2 Saturation ABG Base Excess ABG Hemoglobin 11.7 L ABG Oxyhemoglobin ABG Sodium ABG Potassium 3.3 L ABG Chloride 95.0 L ABG Glucose 156 H Oxyhemoglobin Sodium Potassium Chloride Carbon Dioxide BUN Creatinine Glucose POC Glucose 159 H 194 H Lactic Acid Calcium Magnesium Ferritin Total Bilirubin Direct Bilirubin AST ALT Alkaline Phosphatase Lactate Dehydrogenase C-Reactive Protein Total Protein Albumin Triglycerides Arterial Blood Glucose 156 H Arterial Blood Ionized Calcium Urine WBC (Auto) Coronavirus (PCR) SARS-CoV-2 IgG Ab 06/06/20 06/06/20 05:57 12:06 WBC RBC Hgb Hct MCV MCH MCHC RDW Lymph % (Auto) Lymph # (Auto) Seg Neutrophils % Seg Neuts % (Manual) Lymphocytes % (Manual) Nucleated RBC % Seg Neutrophils # Seg Neutrophils # Man Lymphocytes # (Manual) D-Dimer ABG pH POC ABG pCO2 POC ABG pO2 ABG pO2 ABG HCO3 ABG O2 Saturation ABG Base Excess ABG Hemoglobin ABG Oxyhemoglobin ABG Sodium ABG Potassium ABG Chloride ABG Glucose Oxyhemoglobin Sodium Potassium Chloride Carbon Dioxide BUN Creatinine Glucose POC Glucose 144 H 230 H Lactic Acid Calcium Magnesium Ferritin Total Bilirubin Direct Bilirubin AST ALT Alkaline Phosphatase Lactate Dehydrogenase C-Reactive Protein Total Protein Albumin Triglycerides Arterial Blood Glucose Arterial Blood Ionized Calcium Urine WBC (Auto) Coronavirus (PCR) SARS-CoV-2 IgG Ab Allied health notes reviewed: nursing
[2020-06-06] MEDS: MIDAZOLAM 100 MG in SODIUM CHLORIDE 0.9% 80 ML IV SCH (20:43)
[2020-06-06] MEDS: POLYETHYLENE GLYCOL 3350 17 GM POWDER PO SCH (22:39)
--- NOTE | 2020-06-06 23:08 | Progress Note ---
Subjective Date of service: 06/06/20 Principal diagnosis: Ac hypoxemic resp failure; COVID-19; Severe Sepsis; Shaggy PNA; Alcohol Abuse Objective - Constitutional Vitals: Vital Signs - 12hr 06/06/20 06/06/20 06/06/20 11:48 12:00 12:34 Temperature 98.4 F Pulse Rate 103 H 101 H 100 H Pulse Rate [ 101 H From Monitor] Respiratory 18 Rate Blood Pressure 108/63 111/66 O2 Sat by Pulse 98 99 Oximetry 06/06/20 06/06/20 06/06/20 13:00 14:00 15:00 Temperature Pulse Rate 99 H 101 H 102 H Pulse Rate [ From Monitor] Respiratory 20 20 19 Rate Blood Pressure 103/64 106/64 115/63 O2 Sat by Pulse 98 99 99 Oximetry 06/06/20 06/06/20 06/06/20 15:55 16:00 16:44 Temperature 98.0 F 98.0 F Pulse Rate 105 H 99 H Pulse Rate [ 102 H From Monitor] Respiratory 20 Rate Blood Pressure 110/65 111/66 O2 Sat by Pulse 99 97 Oximetry 06/06/20 06/06/20 06/06/20 17:00 18:00 19:43 Temperature Pulse Rate 97 H 105 H 97 H Pulse Rate [ From Monitor] Respiratory 9 L 18 Rate Blood Pressure 107/69 111/61 101/62 O2 Sat by Pulse 94 88 99 Oximetry 06/06/20 20:00 Temperature 99.6 F Pulse Rate Pulse Rate [ From Monitor] Respiratory Rate Blood Pressure O2 Sat by Pulse Oximetry - Labs CBC & Chem 7: 06/04/20 20:53 06/04/20 19:01 Labs: Abnormal lab results 06/05/20 06/06/20 06/06/20 Range/Units 23:49 04:42 05:57 POC ABG pCO2 56.1 H (32.0-48.0) mmHg POC ABG pO2 52.5 L (83-108) mmHg ABG Hemoglobin 11.7 L (12.0-17.5) ABG Potassium 3.3 L (3.40-4.50) mmol/L ABG Chloride 95.0 L (98-107) mmol/L ABG Glucose 156 H (65-95) mg/dL POC Glucose 194 H 144 H (70-105) mg/dL Arterial Blood Glucose 156 H (65-95) mg/dL 06/06/20 06/06/20 Range/Units 12:06 17:38 POC ABG pCO2 (32.0-48.0) mmHg POC ABG pO2 (83-108) mmHg ABG Hemoglobin (12.0-17.5) ABG Potassium (3.40-4.50) mmol/L ABG Chloride (98-107) mmol/L ABG Glucose (65-95) mg/dL POC Glucose 230 H 162 H (70-105) mg/dL Arterial Blood Glucose (65-95) mg/dL
[2020-06-07] MEDS: INSULIN LISPRO 100 UNIT/ML VIAL 3 mL SUB-Q SCH ×5 (01:11→23:39)
[2020-06-07] MEDS: methylPREDNISolone Sod Succinate 40 MG/1 ML INJ IV SCH ×2 (05:33→18:05)
[2020-06-07] MEDS: fentaNYL DRIP Premix 2,000 MCG/100 ML BAG IV SCH (06:41)
[2020-06-07] MEDS: SENNOSIDES 8.6 MG TAB PO SCH ×2 (10:36→21:35)
[2020-06-07] MEDS: FAMOTIDINE 20 MG TAB PO SCH ×2 (10:36→21:35)
[2020-06-07] MEDS: DOCUSATE SODIUM 100 MG/10 ML ORAL LIQD PO SCH ×2 (10:36→21:36)
[2020-06-07] MEDS: FOLIC ACID 1 MG TAB PO SCH (10:36)
[2020-06-07] MEDS: ENOXAPARIN 120 MG/0.8 ML INJ SUB-Q SCH ×2 (10:37→21:35)
[2020-06-07] MEDS: QUEtiapine 100 MG TAB PO SCH ×2 (13:45→21:35)
[2020-06-07 15:29] LABS: Hematocrit 27.2 % (35.5-45.6); Hemoglobin 9.3 gm/dl (11.8-15.2); Mean Corpuscular HGB Conc 34 % (32-34); Mean Corpuscular Volume 100 fl (84-94); Platelet Count 188 K/mm3 (140-440); Red Blood Count 2.72 M/mm3 (3.65-5.03); Red Cell Distribution Width 14.7 % (13.2-15.2)
[2020-06-07 15:56] LABS: Alanine Aminotransferase 273 units/L (7-56); Albumin 2.7 g/dL (3.9-5); Blood Urea Nitrogen 22 mg/dL (9-20); Calcium 8.8 mg/dL (8.4-10.2); Hemolysis Index 5
[2020-06-07 15:57] LABS: BUN/Creatinine Ratio 55
--- NOTE | 2020-06-07 16:31 | Progress Note ---
Assessment and Plan Acute hypoxemic respiratory failure due to COVID-19 Severe COVID infection Severe Sepsis Bilateral pneumonia Acute kidney injury (SEN) with acute tubular necrosis (ATN)-improving h/o Alcohol dependence Elevated liver function tests probably secondary COVID Continue to wean supplemental oxygen for O2 sats>90% Monitor blood pressure closely while optimizing sedation, if any hypotension, start vasopressor support Gentle intermittent diuresis while monitoring renal function, hemodynamics and electrolyte profile Bowel regimen- Relistor, not available. Continue to monitor airway pressures - VAP bundle addressed, aspiration precautions HOB >40 - Continue lung protective strategies, permissive hypercapnic acceptable. -Pa/FIO2 ratio acceptable at this time - continue bronchodilators with pulmonary hygiene per RT - wean per pulmonary driven protocols otherwise - accuchecks with glycemic control per SSI (While critically ill target blood glucose of 140-180 mg/dL; avoid hypoglycemia) - sedation prn for target RASS -1 to -2 - continue enteral nutritional support at goal rate as tolerated - Prone positioning as tolerated and indicated - Monitor liver function test , avoid hepatotoxic agents - Avoid nephrotoxins, renally dose all medications, conservative fluid management - continue to avoid benzodiazepines, reduce the possibility of delirium - prn analgesia per CPOT score - Maintenance of sleep-wake cycle, avoid delirium - continue to avoid benzodiazepines, reduce the possibility of delirium - aspiration precautions -Stress ulcer prophylaxis - PT/OT/ROM exercises - continue mobility protocols for pressure ulcer prevention -CXR, ABG as clinically indicated -CBC, BMP as clinically indicated -Supportive transfusions to keep HgB >7g/dL - Monitor hemodynamics closely - continue other care per attending / other consultants COVID SPECIFIC INTERVENTIONS - SARS CoV-2 IgG positive patient is NOT a candidate for COVID convalescent plasma -Completed remdesivir -continue steroids -Monitor inflammatory markers - ferritin, Ddimer, CRP, LDH every 3 days -Continue anticoagulation per System Protocol based on d-dimer -Continue contact and airborne isolation .... Re-evaluate in am & prn CONDITION: CRITICAL PROGNOSIS: GUARDED CODE STATUS: FULL CODE The high probability of a clinically significant, sudden or life-threatening deterioration of the [respiratory, cardiovascular, hematologic & neurologic] sy stem(s) required my full and direct attention, intervention and personal management. The aggregate critical care time was [32] minutes without overlap. Time includes spent on; [x] Data Review and interpretation [x] Patient assessment and monitoring of vital signs [x] Documentation [x] Medication orders and management Subjective Date of service: 06/07/20 Principal diagnosis: Ac hypoxemic resp failure; COVID-19; Severe Sepsis; Shaggy PNA; Alcohol Abuse Interval history: Patient is seen today for: Acute hypoxemic respiratory failure due to COVID-19; Severe Sepsis; Bilateral pneumonia; Alcohol dependence; Elevated liver function tests Seen and examined at bedside; 24hour events reviewed; nursing and respiratory care staff consulted; no adverse overnight events reported to me; resting in bed; remains on MVS; FiO2 at 55% PEEP +10. No bowel movement, on Fentanyl and Midazolam/Propofol. Objective Vital Signs - 12hr 06/07/20 06/07/20 06/07/20 05:00 06:00 07:00 Temperature Pulse Rate 90 90 89 Pulse Rate [ From Monitor] Respiratory 20 20 19 Rate Blood Pressure 107/60 112/61 114/69 O2 Sat by Pulse 99 99 98 Oximetry 06/07/20 06/07/20 06/07/20 07:52 07:53 08:00 Temperature 98.7 F Pulse Rate 89 86 Pulse Rate [ 89 From Monitor] Respiratory 20 20 Rate Blood Pressure 113/67 O2 Sat by Pulse 100 98 Oximetry 06/07/20 06/07/20 06/07/20 08:20 09:00 10:00 Temperature Pulse Rate 82 81 87 Pulse Rate [ From Monitor] Respiratory 20 19 Rate Blood Pressure 114/73 104/71 119/69 O2 Sat by Pulse 98 98 92 Oximetry 06/07/20 06/07/20 06/07/20 11:00 12:00 12:15 Temperature Pulse Rate 91 H 103 H 95 H Pulse Rate [ 97 H From Monitor] Respiratory 12 17 Rate Blood Pressure 103/61 128/84 119/63 O2 Sat by Pulse 95 96 97 Oximetry 06/07/20 06/07/20 13:00 14:00 Temperature Pulse Rate 95 H 98 H Pulse Rate [ From Monitor] Respiratory 15 20 Rate Blood Pressure 119/63 103/57 O2 Sat by Pulse 97 97 Oximetry Constitutional: no acute distress, asleep, other (middle aged obese male without significant ventilator dyssynchrony) Eyes: non-icteric ENT: oropharynx moist, other (ETT 24 cm CHILO) Neck: supple, no JVD Effort: normal, mildly labored Ascultation: Bilateral: diminished breath sounds, rhonchi Percussion: Bilateral: not dull Cardiovascular: regular rate and rhythm, other (S1,S2) Gastrointestinal: hypoactive bowel sounds, soft, non-tender, non-distended (protuberant) Integumentary: normal Extremities: no cyanosis, no edema, pulses normal, no ischemia or petechiae Neurologic: pupils equal and round, other (sedated) Psychiatric: other (sedated) CBC and BMP: 06/26/20 02:17 06/26/20 02:17 ABG, PT/INR, D-dimer: ABG ABG pH 7.511 (7.320-7.450) H 06/07/20 04:34 POC ABG pCO2 53.5 mmHg (32.0-48.0) H 06/07/20 04:34 ABG pCO2 69.6 mm Hg 06/05/20 12:35 POC ABG pO2 114.5 mmHg (83-108) H 06/07/20 04:34 ABG pO2 127.9 mm Hg (80.0-90.0) H 06/05/20 12:35 POC ABG HCO3 41.8 06/07/20 04:34 ABG O2 Saturation 98.3 % (95.0-99.0) 06/05/20 12:35 PT/INR, D-dimer D-Dimer 1887.82 ng/mlDDU (0-234) H 05/20/20 08:16 Abnormal lab findings: Abnormal Labs 05/09/20 05/09/20 05/09/20 12:59 12:59 12:59 WBC 11.8 H RBC Hgb Hct MCV 96 H MCH 34 H MCHC 35 H RDW Lymph % (Auto) 6.9 L Lymph # (Auto) 0.8 L Seg Neutrophils % 87.5 H Seg Neuts % (Manual) Lymphocytes % (Manual) Nucleated RBC % Seg Neutrophils # 10.3 H Seg Neutrophils # Man Lymphocytes # (Manual) D-Dimer ABG pH POC ABG pCO2 POC ABG pO2 ABG pO2 ABG HCO3 ABG O2 Saturation ABG Base Excess ABG Hemoglobin ABG Oxyhemoglobin ABG Sodium ABG Potassium ABG Chloride ABG Glucose Oxyhemoglobin Sodium 130 L Potassium 3.5 L Chloride 86.4 L Carbon Dioxide BUN 33 H Creatinine 2.3 H Glucose 156 H POC Glucose Lactic Acid Calcium Magnesium Ferritin Total Bilirubin 3.40 H Direct Bilirubin 1.7 H AST 385 H ALT 134 H Alkaline Phosphatase Lactate Dehydrogenase C-Reactive Protein Total Protein Albumin 3.0 L Triglycerides Arterial Blood Glucose Arterial Blood Ionized Calcium Urine WBC (Auto) Coronavirus (PCR) SARS-CoV-2 IgG Ab 05/09/20 05/09/20 05/09/20 12:59 12:59 12:59 WBC RBC Hgb Hct MCV MCH MCHC RDW Lymph % (Auto) Lymph # (Auto) Seg Neutrophils % Seg Neuts % (Manual) Lymphocytes % (Manual) Nucleated RBC % Seg Neutrophils # Seg Neutrophils # Man Lymphocytes # (Manual) D-Dimer 3242.51 H ABG pH POC ABG pCO2 POC ABG pO2 ABG pO2 ABG HCO3 ABG O2 Saturation ABG Base Excess ABG Hemoglobin ABG Oxyhemoglobin ABG Sodium ABG Potassium ABG Chloride ABG Glucose Oxyhemoglobin Sodium Potassium Chloride Carbon Dioxide BUN Creatinine Glucose 158 H POC Glucose Lactic Acid 3.50 H* Calcium Magnesium Ferritin Total Bilirubin Direct Bilirubin AST ALT Alkaline Phosphatase Lactate Dehydrogenase 2166 H C-Reactive Protein 39.00 H Total Protein Albumin Triglycerides Arterial Blood Glucose Arterial Blood Ionized Calcium Urine WBC (Auto) Coronavirus (PCR) SARS-CoV-2 IgG Ab 05/09/20 05/09/20 05/09/20 12:59 14:20 14:20 WBC RBC Hgb Hct MCV MCH MCHC RDW Lymph % (Auto) Lymph # (Auto) Seg Neutrophils % Seg Neuts % (Manual) Lymphocytes % (Manual) Nucleated RBC % Seg Neutrophils # Seg Neutrophils # Man Lymphocytes # (Manual) D-Dimer 2861.78 H ABG pH POC ABG pCO2 POC ABG pO2 ABG pO2 ABG HCO3 ABG O2 Saturation ABG Base Excess ABG Hemoglobin ABG Oxyhemoglobin ABG Sodium ABG Potassium ABG Chloride ABG Glucose Oxyhemoglobin Sodium Potassium Chloride Carbon Dioxide BUN Creatinine Glucose POC Glucose Lactic Acid 2.20 H* Calcium Magnesium Ferritin 75546.0 H Total Bilirubin Direct Bilirubin AST ALT Alkaline Phosphatase Lactate Dehydrogenase C-Reactive Protein Total Protein Albumin Triglycerides Arterial Blood Glucose Arterial Blood Ionized Calcium Urine WBC (Auto) Coronavirus (PCR) SARS-CoV-2 IgG Ab 05/09/20 05/09/20 05/09/20 14:20 14:20 15:56 WBC RBC Hgb Hct MCV MCH MCHC RDW Lymph % (Auto) Lymph # (Auto) Seg Neutrophils % Seg Neuts % (Manual) Lymphocytes % (Manual) Nucleated RBC % Seg Neutrophils # Seg Neutrophils # Man Lymphocytes # (Manual) D-Dimer ABG pH POC ABG pCO2 POC ABG pO2 57.3 L ABG pO2 ABG HCO3 ABG O2 Saturation ABG Base Excess ABG Hemoglobin ABG Oxyhemoglobin 86.3 L ABG Sodium 129.9 L ABG Potassium ABG Chloride ABG Glucose 146 H Oxyhemoglobin Sodium Potassium Chloride Carbon Dioxide BUN Creatinine Glucose 143 H POC Glucose Lactic Acid Calcium Magnesium Ferritin 88537.0 H Total Bilirubin Direct Bilirubin AST ALT Alkaline Phosphatase Lactate Dehydrogenase 1953 H C-Reactive Protein 33.50 H Total Protein Albumin Triglycerides Arterial Blood Glucose 146 H Arterial Blood Ionized Calcium 3.9 L Urine WBC (Auto) Coronavirus (PCR) SARS-CoV-2 IgG Ab 05/10/20 05/10/20 05/10/20 10:32 10:32 18:50 WBC 15.4 H RBC Hgb Hct MCV 97 H MCH 33 H MCHC RDW 13.1 L Lymph % (Auto) Lymph # (Auto) Seg Neutrophils % Seg Neuts % (Manual) 89.0 H Lymphocytes % (Manual) 8.0 L Nucleated RBC % Seg Neutrophils # Seg Neutrophils # Man 13.7 H Lymphocytes # (Manual) D-Dimer ABG pH POC ABG pCO2 POC ABG pO2 ABG pO2 ABG HCO3 ABG O2 Saturation ABG Base Excess ABG Hemoglobin ABG Oxyhemoglobin ABG Sodium ABG Potassium ABG Chloride ABG Glucose Oxyhemoglobin Sodium 136 L Potassium Chloride 97.4 L Carbon Dioxide BUN 37 H Creatinine 1.7 H Glucose 209 H POC Glucose Lactic Acid Calcium Magnesium Ferritin > 2000.0 H Total Bilirubin Direct Bilirubin AST ALT Alkaline Phosphatase Lactate Dehydrogenase C-Reactive Protein Total Protein Albumin Triglycerides Arterial Blood Glucose Arterial Blood Ionized Calcium Urine WBC (Auto) Coronavirus (PCR) SARS-CoV-2 IgG Ab 05/10/20 05/10/20 05/10/20 18:50 19:00 Unknown WBC RBC Hgb Hct MCV MCH MCHC RDW Lymph % (Auto) Lymph # (Auto) Seg Neutrophils % Seg Neuts % (Manual) Lymphocytes % (Manual) Nucleated RBC % Seg Neutrophils # Seg Neutrophils # Man Lymphocytes # (Manual) D-Dimer > 23295 H ABG pH POC ABG pCO2 POC ABG pO2 ABG pO2 ABG HCO3 ABG O2 Saturation ABG Base Excess ABG Hemoglobin ABG Oxyhemoglobin ABG Sodium ABG Potassium ABG Chloride ABG Glucose Oxyhemoglobin Sodium Potassium Chloride Carbon Dioxide BUN Creatinine Glucose POC Glucose Lactic Acid Calcium Magnesium Ferritin Total Bilirubin Direct Bilirubin AST ALT Alkaline Phosphatase Lactate Dehydrogenase 1879 H C-Reactive Protein 24.80 H Total Protein Albumin Triglycerides Arterial Blood Glucose Arterial Blood Ionized Calcium Urine WBC (Auto) 11.0 H Coronavirus (PCR) SARS-CoV-2 IgG Ab 05/10/20 05/11/20 05/11/20 Unknown 07:30 07:30 WBC RBC Hgb Hct MCV MCH MCHC RDW Lymph % (Auto) Lymph # (Auto) Seg Neutrophils % Seg Neuts % (Manual) Lymphocytes % (Manual) Nucleated RBC % Seg Neutrophils # Seg Neutrophils # Man Lymphocytes # (Manual) D-Dimer > 2000 H ABG pH POC ABG pCO2 POC ABG pO2 ABG pO2 ABG HCO3 ABG O2 Saturation ABG Base Excess ABG Hemoglobin ABG Oxyhemoglobin ABG Sodium ABG Potassium ABG Chloride ABG Glucose Oxyhemoglobin Sodium Potassium Chloride 96.3 L Carbon Dioxide BUN 36 H Creatinine Glucose 161 H POC Glucose Lactic Acid Calcium 8.3 L Magnesium Ferritin Total Bilirubin 1.50 H Direct Bilirubin 0.6 H AST 178 H ALT 111 H Alkaline Phosphatase Lactate Dehydrogenase C-Reactive Protein Total Protein Albumin 3.0 L Triglycerides Arterial Blood Glucose Arterial Blood Ionized Calcium Urine WBC (Auto) Coronavirus (PCR) Positive A SARS-CoV-2 IgG Ab 05/11/20 05/11/20 05/11/20 07:30 07:30 07:30 WBC RBC Hgb Hct MCV MCH MCHC RDW Lymph % (Auto) Lymph # (Auto) Seg Neutrophils % Seg Neuts % (Manual) Lymphocytes % (Manual) Nucleated RBC % Seg Neutrophils # Seg Neutrophils # Man Lymphocytes # (Manual) D-Dimer ABG pH POC ABG pCO2 POC ABG pO2 ABG pO2 ABG HCO3 ABG O2 Saturation ABG Base Excess ABG Hemoglobin ABG Oxyhemoglobin ABG Sodium ABG Potassium ABG Chloride ABG Glucose Oxyhemoglobin Sodium Potassium Chloride Carbon Dioxide BUN Creatinine Glucose POC Glucose Lactic Acid Calcium Magnesium Ferritin 27353.0 H Total Bilirubin Direct Bilirubin AST ALT Alkaline Phosphatase Lactate Dehydrogenase 1523 H C-Reactive Protein 12.90 H Total Protein Albumin Triglycerides Arterial Blood Glucose Arterial Blood Ionized Calcium Urine WBC (Auto) Coronavirus (PCR) SARS-CoV-2 IgG Ab Reactive A 05/13/20 05/13/20 05/15/20 05:20 05:20 08:15 WBC RBC Hgb Hct MCV MCH MCHC RDW Lymph % (Auto) Lymph # (Auto) Seg Neutrophils % Seg Neuts % (Manual) Lymphocytes % (Manual) Nucleated RBC % Seg Neutrophils # Seg Neutrophils # Man Lymphocytes # (Manual) D-Dimer > 10121 H 5318.28 H ABG pH POC ABG pCO2 POC ABG pO2 ABG pO2 ABG HCO3 ABG O2 Saturation ABG Base Excess ABG Hemoglobin ABG Oxyhemoglobin ABG Sodium ABG Potassium ABG Chloride ABG Glucose Oxyhemoglobin Sodium Potassium Chloride Carbon Dioxide 32 H BUN 30 H Creatinine Glucose 156 H POC Glucose Lactic Acid Calcium Magnesium 2.60 H Ferritin Total Bilirubin 1.40 H Direct Bilirubin AST 121 H ALT 119 H Alkaline Phosphatase Lactate Dehydrogenase 957 H C-Reactive Protein 4.00 H Total Protein Albumin 3.0 L Triglycerides Arterial Blood Glucose Arterial Blood Ionized Calcium Urine WBC (Auto) Coronavirus (PCR) SARS-CoV-2 IgG Ab 05/15/20 05/15/20 05/15/20 08:15 08:15 08:15 WBC 12.4 H RBC Hgb Hct MCV 98 H MCH 33 H MCHC RDW Lymph % (Auto) 9.7 L Lymph # (Auto) Seg Neutrophils % 86.8 H Seg Neuts % (Manual) Lymphocytes % (Manual) Nucleated RBC % Seg Neutrophils # 10.8 H Seg Neutrophils # Man Lymphocytes # (Manual) D-Dimer ABG pH POC ABG pCO2 POC ABG pO2 ABG pO2 ABG HCO3 ABG O2 Saturation ABG Base Excess ABG Hemoglobin ABG Oxyhemoglobin ABG Sodium ABG Potassium ABG Chloride ABG Glucose Oxyhemoglobin Sodium Potassium Chloride 94.8 L Carbon Dioxide 32 H BUN 22 H Creatinine Glucose 115 H POC Glucose Lactic Acid Calcium 8.3 L Magnesium Ferritin 2494.0 H Total Bilirubin Direct Bilirubin AST 73 H ALT 121 H Alkaline Phosphatase Lactate Dehydrogenase 835 H C-Reactive Protein 3.40 H Total Protein 6.1 L Albumin 3.0 L Triglycerides Arterial Blood Glucose Arterial Blood Ionized Calcium Urine WBC (Auto) Coronavirus (PCR) SARS-CoV-2 IgG Ab 05/17/20 05/17/20 05/17/20 05:50 05:50 05:50 WBC RBC Hgb Hct MCV MCH MCHC RDW Lymph % (Auto) Lymph # (Auto) Seg Neutrophils % Seg Neuts % (Manual) Lymphocytes % (Manual) Nucleated RBC % Seg Neutrophils # Seg Neutrophils # Man Lymphocytes # (Manual) D-Dimer 2911.42 H ABG pH POC ABG pCO2 POC ABG pO2 ABG pO2 ABG HCO3 ABG O2 Saturation ABG Base Excess ABG Hemoglobin ABG Oxyhemoglobin ABG Sodium ABG Potassium ABG Chloride ABG Glucose Oxyhemoglobin Sodium 136 L Potassium Chloride 96.0 L Carbon Dioxide 34 H BUN 22 H Creatinine Glucose 140 H POC Glucose Lactic Acid Calcium Magnesium Ferritin 2082.0 H Total Bilirubin Direct Bilirubin AST ALT 75 H Alkaline Phosphatase Lactate Dehydrogenase 601 H C-Reactive Protein 2.70 H Total Protein Albumin 2.9 L Triglycerides Arterial Blood Glucose Arterial Blood Ionized Calcium Urine WBC (Auto) Coronavirus (PCR) SARS-CoV-2 IgG Ab 05/17/20 05/18/20 05/20/20 05:50 12:22 08:16 WBC RBC Hgb Hct MCV 98 H MCH 33 H MCHC RDW Lymph % (Auto) 8.0 L Lymph # (Auto) 0.8 L Seg Neutrophils % 89.3 H Seg Neuts % (Manual) Lymphocytes % (Manual) Nucleated RBC % Seg Neutrophils # 8.8 H Seg Neutrophils # Man Lymphocytes # (Manual) D-Dimer 1887.82 H ABG pH POC ABG pCO2 POC ABG pO2 ABG pO2 ABG HCO3 ABG O2 Saturation ABG Base Excess ABG Hemoglobin ABG Oxyhemoglobin ABG Sodium ABG Potassium ABG Chloride ABG Glucose Oxyhemoglobin Sodium Potassium Chloride Carbon Dioxide BUN Creatinine Glucose POC Glucose 178 H Lactic Acid Calcium Magnesium Ferritin Total Bilirubin Direct Bilirubin AST ALT Alkaline Phosphatase Lactate Dehydrogenase C-Reactive Protein Total Protein Albumin Triglycerides Arterial Blood Glucose Arterial Blood Ionized Calcium Urine WBC (Auto) Coronavirus (PCR) SARS-CoV-2 IgG Ab 05/20/20 05/20/20 05/21/20 08:16 08:16 21:10 WBC RBC Hgb Hct MCV MCH MCHC RDW Lymph % (Auto) Lymph # (Auto) Seg Neutrophils % Seg Neuts % (Manual) Lymphocytes % (Manual) Nucleated RBC % Seg Neutrophils # Seg Neutrophils # Man Lymphocytes # (Manual) D-Dimer ABG pH 7.483 H POC ABG pCO2 POC ABG pO2 ABG pO2 50.0 L ABG HCO3 27.0 H ABG O2 Saturation 86.2 L ABG Base Excess 3.7 H ABG Hemoglobin ABG Oxyhemoglobin ABG Sodium ABG Potassium ABG Chloride ABG Glucose Oxyhemoglobin 84.2 L Sodium Potassium Chloride Carbon Dioxide BUN Creatinine Glucose POC Glucose Lactic Acid Calcium Magnesium Ferritin 1960.0 H Total Bilirubin Direct Bilirubin AST ALT Alkaline Phosphatase Lactate Dehydrogenase 705 H C-Reactive Protein 3.10 H Total Protein Albumin Triglycerides Arterial Blood Glucose Arterial Blood Ionized Calcium Urine WBC (Auto) Coronavirus (PCR) SARS-CoV-2 IgG Ab 05/22/20 05/22/20 05/22/20 04:01 07:53 07:53 WBC 19.2 H RBC Hgb Hct MCV 98 H MCH 34 H MCHC RDW Lymph % (Auto) Lymph # (Auto) Seg Neutrophils % Seg Neuts % (Manual) 96.0 H Lymphocytes % (Manual) 1.0 L Nucleated RBC % Seg Neutrophils # Seg Neutrophils # Man 18.4 H Lymphocytes # (Manual) 0.2 L D-Dimer ABG pH POC ABG pCO2 53.8 H POC ABG pO2 125.5 H ABG pO2 ABG HCO3 ABG O2 Saturation ABG Base Excess ABG Hemoglobin ABG Oxyhemoglobin ABG Sodium 131.8 L ABG Potassium 4.8 H ABG Chloride 94.0 L ABG Glucose 163 H Oxyhemoglobin Sodium 131 L Potassium Chloride 93.4 L Carbon Dioxide BUN 40 H Creatinine Glucose 176 H POC Glucose Lactic Acid Calcium Magnesium 2.70 H Ferritin Total Bilirubin 1.80 H Direct Bilirubin AST 45 H ALT 116 H Alkaline Phosphatase 181 H Lactate Dehydrogenase C-Reactive Protein Total Protein Albumin 2.6 L Triglycerides Arterial Blood Glucose 163 H Arterial Blood Ionized Calcium 4.5 L Urine WBC (Auto) Coronavirus (PCR) SARS-CoV-2 IgG Ab 05/23/20 05/24/20 05/24/20 04:17 03:07 04:08 WBC RBC Hgb Hct MCV MCH MCHC RDW Lymph % (Auto) Lymph # (Auto) Seg Neutrophils % Seg Neuts % (Manual) Lymphocytes % (Manual) Nucleated RBC % Seg Neutrophils # Seg Neutrophils # Man Lymphocytes # (Manual) D-Dimer ABG pH 7.328 L POC ABG pCO2 POC ABG pO2 ABG pO2 72.8 L 73.4 L ABG HCO3 31.0 H 34.0 H ABG O2 Saturation 93.5 L ABG Base Excess 3.5 H 7.7 H ABG Hemoglobin 13.3 L 12.1 L ABG Oxyhemoglobin ABG Sodium ABG Potassium ABG Chloride ABG Glucose Oxyhemoglobin 91.5 L 94.3 L Sodium Potassium Chloride Carbon Dioxide BUN Creatinine Glucose POC Glucose 155 H Lactic Acid Calcium Magnesium Ferritin Total Bilirubin Direct Bilirubin AST ALT Alkaline Phosphatase Lactate Dehydrogenase C-Reactive Protein Total Protein Albumin Triglycerides Arterial Blood Glucose Arterial Blood Ionized Calcium Urine WBC (Auto) Coronavirus (PCR) SARS-CoV-2 IgG Ab 05/24/20 05/24/20 05/24/20 09:33 12:21 17:52 WBC RBC Hgb Hct MCV MCH MCHC RDW Lymph % (Auto) Lymph # (Auto) Seg Neutrophils % Seg Neuts % (Manual) Lymphocytes % (Manual) Nucleated RBC % Seg Neutrophils # Seg Neutrophils # Man Lymphocytes # (Manual) D-Dimer ABG pH POC ABG pCO2 POC ABG pO2 ABG pO2 ABG HCO3 ABG O2 Saturation ABG Base Excess ABG Hemoglobin ABG Oxyhemoglobin ABG Sodium ABG Potassium ABG Chloride ABG Glucose Oxyhemoglobin Sodium Potassium Chloride Carbon Dioxide 34 H D BUN 28 H Creatinine 0.7 L Glucose 168 H POC Glucose 173 H 164 H Lactic Acid Calcium Magnesium Ferritin Total Bilirubin Direct Bilirubin AST ALT Alkaline Phosphatase Lactate Dehydrogenase C-Reactive Protein Total Protein Albumin Triglycerides Arterial Blood Glucose Arterial Blood Ionized Calcium Urine WBC (Auto) Coronavirus (PCR) SARS-CoV-2 IgG Ab 05/24/20 05/25/20 05/25/20 23:47 04:29 05:46 WBC RBC Hgb Hct MCV MCH MCHC RDW Lymph % (Auto) Lymph # (Auto) Seg Neutrophils % Seg Neuts % (Manual) Lymphocytes % (Manual) Nucleated RBC % Seg Neutrophils # Seg Neutrophils # Man Lymphocytes # (Manual) D-Dimer ABG pH POC ABG pCO2 68.6 H POC ABG pO2 ABG pO2 ABG HCO3 ABG O2 Saturation ABG Base Excess ABG Hemoglobin ABG Oxyhemoglobin ABG Sodium ABG Potassium 4.7 H ABG Chloride ABG Glucose 226 H Oxyhemoglobin Sodium Potassium Chloride Carbon Dioxide BUN Creatinine Glucose POC Glucose 171 H 201 H Lactic Acid Calcium Magnesium Ferritin Total Bilirubin Direct Bilirubin AST ALT Alkaline Phosphatase Lactate Dehydrogenase C-Reactive Protein Total Protein Albumin Triglycerides Arterial Blood Glucose 226 H Arterial Blood Ionized Calcium Urine WBC (Auto) Coronavirus (PCR) SARS-CoV-2 IgG Ab 05/25/20 05/25/20 05/25/20 08:37 08:37 12:38 WBC 12.0 H RBC 3.64 L Hgb Hct MCV 99 H MCH 33 H MCHC RDW Lymph % (Auto) Lymph # (Auto) Seg Neutrophils % Seg Neuts % (Manual) Lymphocytes % (Manual) Nucleated RBC % Seg Neutrophils # Seg Neutrophils # Man Lymphocytes # (Manual) D-Dimer ABG pH POC ABG pCO2 POC ABG pO2 ABG pO2 ABG HCO3 ABG O2 Saturation ABG Base Excess ABG Hemoglobin ABG Oxyhemoglobin ABG Sodium ABG Potassium ABG Chloride ABG Glucose Oxyhemoglobin Sodium Potassium Chloride 97.3 L Carbon Dioxide 35 H BUN 25 H Creatinine 0.7 L Glucose 191 H POC Glucose 182 H Lactic Acid Calcium Magnesium Ferritin Total Bilirubin Direct Bilirubin AST ALT Alkaline Phosphatase Lactate Dehydrogenase C-Reactive Protein Total Protein Albumin Triglycerides Arterial Blood Glucose Arterial Blood Ionized Calcium Urine WBC (Auto) Coronavirus (PCR) SARS-CoV-2 IgG Ab 05/25/20 05/26/20 05/26/20 18:16 00:06 04:50 WBC RBC Hgb Hct MCV MCH MCHC RDW Lymph % (Auto) Lymph # (Auto) Seg Neutrophils % Seg Neuts % (Manual) Lymphocytes % (Manual) Nucleated RBC % Seg Neutrophils # Seg Neutrophils # Man Lymphocytes # (Manual) D-Dimer ABG pH POC ABG pCO2 POC ABG pO2 ABG pO2 221.5 H ABG HCO3 40.4 H ABG O2 Saturation 99.3 H ABG Base Excess 12.8 H ABG Hemoglobin 10.4 L ABG Oxyhemoglobin ABG Sodium ABG Potassium ABG Chloride ABG Glucose Oxyhemoglobin Sodium Potassium Chloride Carbon Dioxide BUN Creatinine Glucose POC Glucose 176 H 152 H Lactic Acid Calcium Magnesium Ferritin Total Bilirubin Direct Bilirubin AST ALT Alkaline Phosphatase Lactate Dehydrogenase C-Reactive Protein Total Protein Albumin Triglycerides Arterial Blood Glucose Arterial Blood Ionized Calcium Urine WBC (Auto) Coronavirus (PCR) SARS-CoV-2 IgG Ab 05/26/20 05/26/20 05/26/20 06:11 07:51 07:51 WBC 13.4 H RBC 3.64 L Hgb Hct MCV 98 H MCH 33 H MCHC RDW Lymph % (Auto) Lymph # (Auto) Seg Neutrophils % Seg Neuts % (Manual) Lymphocytes % (Manual) Nucleated RBC % Seg Neutrophils # Seg Neutrophils # Man Lymphocytes # (Manual) D-Dimer ABG pH POC ABG pCO2 POC ABG pO2 ABG pO2 ABG HCO3 ABG O2 Saturation ABG Base Excess ABG Hemoglobin ABG Oxyhemoglobin ABG Sodium ABG Potassium ABG Chloride ABG Glucose Oxyhemoglobin Sodium Potassium Chloride 96.6 L Carbon Dioxide 39 H BUN 29 H Creatinine 0.7 L Glucose 174 H POC Glucose 165 H Lactic Acid Calcium Magnesium Ferritin Total Bilirubin Direct Bilirubin AST ALT Alkaline Phosphatase Lactate Dehydrogenase C-Reactive Protein Total Protein Albumin Triglycerides Arterial Blood Glucose Arterial Blood Ionized Calcium Urine WBC (Auto) Coronavirus (PCR) SARS-CoV-2 IgG Ab 05/26/20 05/27/20 05/27/20 23:23 03:43 05:29 WBC RBC Hgb Hct MCV MCH MCHC RDW Lymph % (Auto) Lymph # (Auto) Seg Neutrophils % Seg Neuts % (Manual) Lymphocytes % (Manual) Nucleated RBC % Seg Neutrophils # Seg Neutrophils # Man Lymphocytes # (Manual) D-Dimer ABG pH 7.480 H POC ABG pCO2 52.4 H POC ABG pO2 61.4 L ABG pO2 ABG HCO3 ABG O2 Saturation ABG Base Excess ABG Hemoglobin ABG Oxyhemoglobin ABG Sodium 134.9 L ABG Potassium ABG Chloride 95.0 L ABG Glucose 221 H Oxyhemoglobin Sodium Potassium Chloride Carbon Dioxide BUN Creatinine Glucose POC Glucose 169 H 227 H Lactic Acid Calcium Magnesium Ferritin Total Bilirubin Direct Bilirubin AST ALT Alkaline Phosphatase Lactate Dehydrogenase C-Reactive Protein Total Protein Albumin Triglycerides Arterial Blood Glucose 221 H Arterial Blood Ionized Calcium 4.5 L Urine WBC (Auto) Coronavirus (PCR) SARS-CoV-2 IgG Ab 05/27/20 05/27/20 05/27/20 07:19 12:18 13:50 WBC RBC Hgb Hct MCV MCH MCHC RDW Lymph % (Auto) Lymph # (Auto) Seg Neutrophils % Seg Neuts % (Manual) Lymphocytes % (Manual) Nucleated RBC % Seg Neutrophils # Seg Neutrophils # Man Lymphocytes # (Manual) D-Dimer ABG pH POC ABG pCO2 POC ABG pO2 ABG pO2 ABG HCO3 ABG O2 Saturation ABG Base Excess ABG Hemoglobin ABG Oxyhemoglobin ABG Sodium ABG Potassium ABG Chloride ABG Glucose Oxyhemoglobin Sodium Potassium Chloride Carbon Dioxide BUN Creatinine Glucose POC Glucose 114 H 148 H Lactic Acid Calcium Magnesium Ferritin Total Bilirubin Direct Bilirubin AST ALT Alkaline Phosphatase Lactate Dehydrogenase C-Reactive Protein Total Protein Albumin Triglycerides 247 H Arterial Blood Glucose Arterial Blood Ionized Calcium Urine WBC (Auto) Coronavirus (PCR) SARS-CoV-2 IgG Ab 05/28/20 05/28/20 05/28/20 00:13 04:16 05:22 WBC RBC Hgb Hct MCV MCH MCHC RDW Lymph % (Auto) Lymph # (Auto) Seg Neutrophils % Seg Neuts % (Manual) Lymphocytes % (Manual) Nucleated RBC % Seg Neutrophils # Seg Neutrophils # Man Lymphocytes # (Manual) D-Dimer ABG pH POC ABG pCO2 64.4 H POC ABG pO2 60.5 L ABG pO2 ABG HCO3 ABG O2 Saturation ABG Base Excess ABG Hemoglobin ABG Oxyhemoglobin ABG Sodium ABG Potassium ABG Chloride 95.0 L ABG Glucose 209 H Oxyhemoglobin Sodium Potassium Chloride Carbon Dioxide BUN Creatinine Glucose POC Glucose 155 H 186 H Lactic Acid Calcium Magnesium Ferritin Total Bilirubin Direct Bilirubin AST ALT Alkaline Phosphatase Lactate Dehydrogenase C-Reactive Protein Total Protein Albumin Triglycerides Arterial Blood Glucose 209 H Arterial Blood Ionized Calcium Urine WBC (Auto) Coronavirus (PCR) SARS-CoV-2 IgG Ab 05/28/20 05/28/20 05/29/20 12:45 17:39 00:37 WBC RBC Hgb Hct MCV MCH MCHC RDW Lymph % (Auto) Lymph # (Auto) Seg Neutrophils % Seg Neuts % (Manual) Lymphocytes % (Manual) Nucleated RBC % Seg Neutrophils # Seg Neutrophils # Man Lymphocytes # (Manual) D-Dimer ABG pH POC ABG pCO2 POC ABG pO2 ABG pO2 ABG HCO3 ABG O2 Saturation ABG Base Excess ABG Hemoglobin ABG Oxyhemoglobin ABG Sodium ABG Potassium ABG Chloride ABG Glucose Oxyhemoglobin Sodium Potassium Chloride Carbon Dioxide BUN Creatinine Glucose POC Glucose 143 H 164 H 221 H Lactic Acid Calcium Magnesium Ferritin Total Bilirubin Direct Bilirubin AST ALT Alkaline Phosphatase Lactate Dehydrogenase C-Reactive Protein Total Protein Albumin Triglycerides Arterial Blood Glucose Arterial Blood Ionized Calcium Urine WBC (Auto) Coronavirus (PCR) SARS-CoV-2 IgG Ab 05/29/20 05/29/20 05/29/20 04:15 05:33 12:34 WBC RBC Hgb Hct MCV MCH MCHC RDW Lymph % (Auto) Lymph # (Auto) Seg Neutrophils % Seg Neuts % (Manual) Lymphocytes % (Manual) Nucleated RBC % Seg Neutrophils # Seg Neutrophils # Man Lymphocytes # (Manual) D-Dimer ABG pH 7.463 H POC ABG pCO2 56.3 H POC ABG pO2 81.2 L ABG pO2 ABG HCO3 ABG O2 Saturation ABG Base Excess ABG Hemoglobin ABG Oxyhemoglobin ABG Sodium ABG Potassium ABG Chloride 96.0 L ABG Glucose 194 H Oxyhemoglobin Sodium Potassium Chloride Carbon Dioxide BUN Creatinine Glucose POC Glucose 133 H 221 H Lactic Acid Calcium Magnesium Ferritin Total Bilirubin Direct Bilirubin AST ALT Alkaline Phosphatase Lactate Dehydrogenase C-Reactive Protein Total Protein Albumin Triglycerides Arterial Blood Glucose 194 H Arterial Blood Ionized Calcium 4.5 L Urine WBC (Auto) Coronavirus (PCR) SARS-CoV-2 IgG Ab 05/29/20 05/30/20 05/30/20 18:07 00:12 05:38 WBC RBC Hgb Hct MCV MCH MCHC RDW Lymph % (Auto) Lymph # (Auto) Seg Neutrophils % Seg Neuts % (Manual) Lymphocytes % (Manual) Nucleated RBC % Seg Neutrophils # Seg Neutrophils # Man Lymphocytes # (Manual) D-Dimer ABG pH POC ABG pCO2 POC ABG pO2 ABG pO2 ABG HCO3 ABG O2 Saturation ABG Base Excess ABG Hemoglobin ABG Oxyhemoglobin ABG Sodium ABG Potassium ABG Chloride ABG Glucose Oxyhemoglobin Sodium Potassium Chloride Carbon Dioxide BUN Creatinine Glucose POC Glucose 162 H 190 H 208 H Lactic Acid Calcium Magnesium Ferritin Total Bilirubin Direct Bilirubin AST ALT Alkaline Phosphatase Lactate Dehydrogenase C-Reactive Protein Total Protein Albumin Triglycerides Arterial Blood Glucose Arterial Blood Ionized Calcium Urine WBC (Auto) Coronavirus (PCR) SARS-CoV-2 IgG Ab 05/30/20 05/30/20 05/30/20 09:30 11:35 11:54 WBC 12.4 H RBC 3.48 L Hgb 11.3 L Hct 34.6 L MCV 99 H MCH 33 H MCHC RDW Lymph % (Auto) Lymph # (Auto) Seg Neutrophils % Seg Neuts % (Manual) Lymphocytes % (Manual) Nucleated RBC % Seg Neutrophils # Seg Neutrophils # Man Lymphocytes # (Manual) D-Dimer ABG pH 7.455 H POC ABG pCO2 57.5 H POC ABG pO2 81.5 L ABG pO2 ABG HCO3 ABG O2 Saturation ABG Base Excess ABG Hemoglobin ABG Oxyhemoglobin ABG Sodium ABG Potassium ABG Chloride 96.0 L ABG Glucose 204 H Oxyhemoglobin Sodium Potassium Chloride Carbon Dioxide BUN Creatinine Glucose POC Glucose 183 H Lactic Acid Calcium Magnesium Ferritin Total Bilirubin Direct Bilirubin AST ALT Alkaline Phosphatase Lactate Dehydrogenase C-Reactive Protein Total Protein Albumin Triglycerides Arterial Blood Glucose 204 H Arterial Blood Ionized Calcium Urine WBC (Auto) Coronavirus (PCR) SARS-CoV-2 IgG Ab 05/30/20 05/31/20 05/31/20 18:01 00:10 03:22 WBC RBC Hgb Hct MCV MCH MCHC RDW Lymph % (Auto) Lymph # (Auto) Seg Neutrophils % Seg Neuts % (Manual) Lymphocytes % (Manual) Nucleated RBC % Seg Neutrophils # Seg Neutrophils # Man Lymphocytes # (Manual) D-Dimer ABG pH POC ABG pCO2 60.4 H POC ABG pO2 71.5 L ABG pO2 ABG HCO3 ABG O2 Saturation ABG Base Excess ABG Hemoglobin ABG Oxyhemoglobin ABG Sodium ABG Potassium ABG Chloride 96.0 L ABG Glucose 169 H Oxyhemoglobin Sodium Potassium Chloride Carbon Dioxide BUN Creatinine Glucose POC Glucose 184 H 135 H Lactic Acid Calcium Magnesium Ferritin Total Bilirubin Direct Bilirubin AST ALT Alkaline Phosphatase Lactate Dehydrogenase C-Reactive Protein Total Protein Albumin Triglycerides Arterial Blood Glucose 169 H Arterial Blood Ionized Calcium 4.5 L Urine WBC (Auto) Coronavirus (PCR) SARS-CoV-2 IgG Ab 05/31/20 05/31/20 05/31/20 05:24 11:18 14:41 WBC RBC Hgb Hct MCV MCH MCHC RDW Lymph % (Auto) Lymph # (Auto) Seg Neutrophils % Seg Neuts % (Manual) Lymphocytes % (Manual) Nucleated RBC % Seg Neutrophils # Seg Neutrophils # Man Lymphocytes # (Manual) D-Dimer ABG pH POC ABG pCO2 POC ABG pO2 ABG pO2 ABG HCO3 ABG O2 Saturation ABG Base Excess ABG Hemoglobin ABG Oxyhemoglobin ABG Sodium ABG Potassium ABG Chloride ABG Glucose Oxyhemoglobin Sodium Potassium Chloride 96.8 L Carbon Dioxide 37 H BUN 31 H Creatinine 0.6 L Glucose 213 H POC Glucose 164 H 208 H Lactic Acid Calcium Magnesium Ferritin Total Bilirubin Direct Bilirubin AST ALT Alkaline Phosphatase Lactate Dehydrogenase C-Reactive Protein Total Protein Albumin Triglycerides Arterial Blood Glucose Arterial Blood Ionized Calcium Urine WBC (Auto) Coronavirus (PCR) SARS-CoV-2 IgG Ab 05/31/20 05/31/20 06/01/20 17:37 23:47 03:48 WBC RBC Hgb Hct MCV MCH MCHC RDW Lymph % (Auto) Lymph # (Auto) Seg Neutrophils % Seg Neuts % (Manual) Lymphocytes % (Manual) Nucleated RBC % Seg Neutrophils # Seg Neutrophils # Man Lymphocytes # (Manual) D-Dimer ABG pH POC ABG pCO2 59.7 H POC ABG pO2 73.9 L ABG pO2 ABG HCO3 ABG O2 Saturation ABG Base Excess ABG Hemoglobin ABG Oxyhemoglobin ABG Sodium ABG Potassium ABG Chloride 95.0 L ABG Glucose 256 H Oxyhemoglobin Sodium Potassium Chloride Carbon Dioxide BUN Creatinine Glucose POC Glucose 168 H 178 H Lactic Acid Calcium Magnesium Ferritin Total Bilirubin Direct Bilirubin AST ALT Alkaline Phosphatase Lactate Dehydrogenase C-Reactive Protein Total Protein Albumin Triglycerides Arterial Blood Glucose 256 H Arterial Blood Ionized Calcium Urine WBC (Auto) Coronavirus (PCR) SARS-CoV-2 IgG Ab 06/01/20 06/01/20 06/01/20 05:01 07:47 07:47 WBC 14.4 H RBC 3.46 L Hgb 11.1 L Hct 34.3 L MCV 99 H MCH MCHC RDW Lymph % (Auto) Lymph # (Auto) Seg Neutrophils % Seg Neuts % (Manual) 86.0 H Lymphocytes % (Manual) 9.0 L Nucleated RBC % Seg Neutrophils # Seg Neutrophils # Man 12.4 H Lymphocytes # (Manual) D-Dimer ABG pH POC ABG pCO2 POC ABG pO2 ABG pO2 ABG HCO3 ABG O2 Saturation ABG Base Excess ABG Hemoglobin ABG Oxyhemoglobin ABG Sodium ABG Potassium ABG Chloride ABG Glucose Oxyhemoglobin Sodium Potassium Chloride Carbon Dioxide BUN Creatinine Glucose POC Glucose 197 H Lactic Acid Calcium Magnesium Ferritin Total Bilirubin Direct Bilirubin AST ALT Alkaline Phosphatase Lactate Dehydrogenase C-Reactive Protein Total Protein Albumin Triglycerides 244 H Arterial Blood Glucose Arterial Blood Ionized Calcium Urine WBC (Auto) Coronavirus (PCR) SARS-CoV-2 IgG Ab 06/01/20 06/01/20 06/01/20 07:47 11:46 18:15 WBC RBC Hgb Hct MCV MCH MCHC RDW Lymph % (Auto) Lymph # (Auto) Seg Neutrophils % Seg Neuts % (Manual) Lymphocytes % (Manual) Nucleated RBC % Seg Neutrophils # Seg Neutrophils # Man Lymphocytes # (Manual) D-Dimer ABG pH POC ABG pCO2 POC ABG pO2 ABG pO2 ABG HCO3 ABG O2 Saturation ABG Base Excess ABG Hemoglobin ABG Oxyhemoglobin ABG Sodium ABG Potassium ABG Chloride ABG Glucose Oxyhemoglobin Sodium Potassium Chloride 95.4 L Carbon Dioxide 35 H BUN 30 H Creatinine 0.5 L Glucose 214 H POC Glucose 181 H 221 H Lactic Acid Calcium Magnesium Ferritin Total Bilirubin Direct Bilirubin AST 54 H ALT 235 H Alkaline Phosphatase Lactate Dehydrogenase C-Reactive Protein Total Protein Albumin 2.9 L Triglycerides Arterial Blood Glucose Arterial Blood Ionized Calcium Urine WBC (Auto) Coronavirus (PCR) SARS-CoV-2 IgG Ab 06/01/20 06/02/20 06/02/20 23:12 04:00 05:31 WBC RBC Hgb Hct MCV MCH MCHC RDW Lymph % (Auto) Lymph # (Auto) Seg Neutrophils % Seg Neuts % (Manual) Lymphocytes % (Manual) Nucleated RBC % Seg Neutrophils # Seg Neutrophils # Man Lymphocytes # (Manual) D-Dimer ABG pH 7.465 H POC ABG pCO2 POC ABG pO2 ABG pO2 203.4 H ABG HCO3 41.2 H ABG O2 Saturation 99.3 H ABG Base Excess 15.1 H ABG Hemoglobin 11.5 L ABG Oxyhemoglobin ABG Sodium ABG Potassium ABG Chloride ABG Glucose Oxyhemoglobin Sodium Potassium Chloride Carbon Dioxide BUN Creatinine Glucose POC Glucose 197 H 184 H Lactic Acid Calcium Magnesium Ferritin Total Bilirubin Direct Bilirubin AST ALT Alkaline Phosphatase Lactate Dehydrogenase C-Reactive Protein Total Protein Albumin Triglycerides Arterial Blood Glucose Arterial Blood Ionized Calcium Urine WBC (Auto) Coronavirus (PCR) SARS-CoV-2 IgG Ab 06/02/20 06/02/20 06/02/20 11:49 18:06 23:00 WBC RBC Hgb Hct MCV MCH MCHC RDW Lymph % (Auto) Lymph # (Auto) Seg Neutrophils % Seg Neuts % (Manual) Lymphocytes % (Manual) Nucleated RBC % Seg Neutrophils # Seg Neutrophils # Man Lymphocytes # (Manual) D-Dimer ABG pH POC ABG pCO2 POC ABG pO2 ABG pO2 ABG HCO3 ABG O2 Saturation ABG Base Excess ABG Hemoglobin ABG Oxyhemoglobin ABG Sodium ABG Potassium ABG Chloride ABG Glucose Oxyhemoglobin Sodium Potassium Chloride Carbon Dioxide BUN Creatinine Glucose POC Glucose 195 H 177 H 228 H Lactic Acid Calcium Magnesium Ferritin Total Bilirubin Direct Bilirubin AST ALT Alkaline Phosphatase Lactate Dehydrogenase C-Reactive Protein Total Protein Albumin Triglycerides Arterial Blood Glucose Arterial Blood Ionized Calcium Urine WBC (Auto) Coronavirus (PCR) SARS-CoV-2 IgG Ab 06/03/20 06/03/2020 03:58 05:19 12:21 WBC RBC Hgb Hct MCV MCH MCHC RDW Lymph % (Auto) Lymph # (Auto) Seg Neutrophils % Seg Neuts % (Manual) Lymphocytes % (Manual) Nucleated RBC % Seg Neutrophils # Seg Neutrophils # Man Lymphocytes # (Manual) D-Dimer ABG pH POC ABG pCO2 POC ABG pO2 ABG pO2 171.0 H ABG HCO3 42.8 H ABG O2 Saturation ABG Base Excess 15.6 H ABG Hemoglobin 12.3 L ABG Oxyhemoglobin ABG Sodium ABG Potassium ABG Chloride ABG Glucose Oxyhemoglobin Sodium Potassium Chloride Carbon Dioxide BUN Creatinine Glucose POC Glucose 122 H 207 H Lactic Acid Calcium Magnesium Ferritin Total Bilirubin Direct Bilirubin AST ALT Alkaline Phosphatase Lactate Dehydrogenase C-Reactive Protein Total Protein Albumin Triglycerides Arterial Blood Glucose Arterial Blood Ionized Calcium Urine WBC (Auto) Coronavirus (PCR) SARS-CoV-2 IgG Ab 06/03/20 06/03/20 06/04/20 17:27 23:50 03:55 WBC RBC Hgb Hct MCV MCH MCHC RDW Lymph % (Auto) Lymph # (Auto) Seg Neutrophils % Seg Neuts % (Manual) Lymphocytes % (Manual) Nucleated RBC % Seg Neutrophils # Seg Neutrophils # Man Lymphocytes # (Manual) D-Dimer ABG pH POC ABG pCO2 POC ABG pO2 ABG pO2 117.2 H ABG HCO3 42.4 H ABG O2 Saturation ABG Base Excess 15.3 H ABG Hemoglobin 10.5 L ABG Oxyhemoglobin ABG Sodium ABG Potassium ABG Chloride ABG Glucose Oxyhemoglobin Sodium Potassium Chloride Carbon Dioxide BUN Creatinine Glucose POC Glucose 157 H 214 H Lactic Acid Calcium Magnesium Ferritin Total Bilirubin Direct Bilirubin AST ALT Alkaline Phosphatase Lactate Dehydrogenase C-Reactive Protein Total Protein Albumin Triglycerides Arterial Blood Glucose Arterial Blood Ionized Calcium Urine WBC (Auto) Coronavirus (PCR) SARS-CoV-2 IgG Ab 06/04/20 06/04/20 06/04/20 05:49 11:41 17:30 WBC RBC Hgb Hct MCV MCH MCHC RDW Lymph % (Auto) Lymph # (Auto) Seg Neutrophils % Seg Neuts % (Manual) Lymphocytes % (Manual) Nucleated RBC % Seg Neutrophils # Seg Neutrophils # Man Lymphocytes # (Manual) D-Dimer ABG pH POC ABG pCO2 POC ABG pO2 ABG pO2 ABG HCO3 ABG O2 Saturation ABG Base Excess ABG Hemoglobin ABG Oxyhemoglobin ABG Sodium ABG Potassium ABG Chloride ABG Glucose Oxyhemoglobin Sodium Potassium Chloride Carbon Dioxide BUN Creatinine Glucose POC Glucose 149 H 233 H 156 H Lactic Acid Calcium Magnesium Ferritin Total Bilirubin Direct Bilirubin AST ALT Alkaline Phosphatase Lactate Dehydrogenase C-Reactive Protein Total Protein Albumin Triglycerides Arterial Blood Glucose Arterial Blood Ionized Calcium Urine WBC (Auto) Coronavirus (PCR) SARS-CoV-2 IgG Ab 06/04/20 06/04/20 06/04/20 19:01 20:53 23:41 WBC RBC 3.18 L Hgb 10.8 L Hct 31.8 L MCV 100 H MCH 34 H MCHC RDW Lymph % (Auto) Lymph # (Auto) Seg Neutrophils % Seg Neuts % (Manual) 86.0 H Lymphocytes % (Manual) 10.0 L Nucleated RBC % 1.0 H Seg Neutrophils # Seg Neutrophils # Man 8.5 H Lymphocytes # (Manual) 1.0 L D-Dimer ABG pH POC ABG pCO2 POC ABG pO2 ABG pO2 ABG HCO3 ABG O2 Saturation ABG Base Excess ABG Hemoglobin ABG Oxyhemoglobin ABG Sodium ABG Potassium ABG Chloride ABG Glucose Oxyhemoglobin Sodium Potassium 3.4 L D Chloride 96.5 L Carbon Dioxide 41 H* BUN 27 H Creatinine 0.5 L Glucose 173 H POC Glucose 217 H Lactic Acid Calcium Magnesium Ferritin Total Bilirubin Direct Bilirubin AST ALT Alkaline Phosphatase Lactate Dehydrogenase C-Reactive Protein Total Protein Albumin Triglycerides Arterial Blood Glucose Arterial Blood Ionized Calcium Urine WBC (Auto) Coronavirus (PCR) SARS-CoV-2 IgG Ab 06/05/20 06/05/20 06/05/20 06:05 11:54 12:35 WBC RBC Hgb Hct MCV MCH MCHC RDW Lymph % (Auto) Lymph # (Auto) Seg Neutrophils % Seg Neuts % (Manual) Lymphocytes % (Manual) Nucleated RBC % Seg Neutrophils # Seg Neutrophils # Man Lymphocytes # (Manual) D-Dimer ABG pH POC ABG pCO2 POC ABG pO2 ABG pO2 127.9 H ABG HCO3 41.1 H ABG O2 Saturation ABG Base Excess 13.0 H ABG Hemoglobin 13.4 L ABG Oxyhemoglobin ABG Sodium ABG Potassium ABG Chloride ABG Glucose Oxyhemoglobin Sodium Potassium Chloride Carbon Dioxide BUN Creatinine Glucose POC Glucose 137 H 211 H Lactic Acid Calcium Magnesium Ferritin Total Bilirubin Direct Bilirubin AST ALT Alkaline Phosphatase Lactate Dehydrogenase C-Reactive Protein Total Protein Albumin Triglycerides Arterial Blood Glucose Arterial Blood Ionized Calcium Urine WBC (Auto) Coronavirus (PCR) SARS-CoV-2 IgG Ab 06/05/20 06/05/20 06/06/20 17:03 23:49 04:42 WBC RBC Hgb Hct MCV MCH MCHC RDW Lymph % (Auto) Lymph # (Auto) Seg Neutrophils % Seg Neuts % (Manual) Lymphocytes % (Manual) Nucleated RBC % Seg Neutrophils # Seg Neutrophils # Man Lymphocytes # (Manual) D-Dimer ABG pH POC ABG pCO2 56.1 H POC ABG pO2 52.5 L ABG pO2 ABG HCO3 ABG O2 Saturation ABG Base Excess ABG Hemoglobin 11.7 L ABG Oxyhemoglobin ABG Sodium ABG Potassium 3.3 L ABG Chloride 95.0 L ABG Glucose 156 H Oxyhemoglobin Sodium Potassium Chloride Carbon Dioxide BUN Creatinine Glucose POC Glucose 159 H 194 H Lactic Acid Calcium Magnesium Ferritin Total Bilirubin Direct Bilirubin AST ALT Alkaline Phosphatase Lactate Dehydrogenase C-Reactive Protein Total Protein Albumin Triglycerides Arterial Blood Glucose 156 H Arterial Blood Ionized Calcium Urine WBC (Auto) Coronavirus (PCR) SARS-CoV-2 IgG Ab 06/06/20 06/06/20 06/06/20 05:57 12:06 17:38 WBC RBC Hgb Hct MCV MCH MCHC RDW Lymph % (Auto) Lymph # (Auto) Seg Neutrophils % Seg Neuts % (Manual) Lymphocytes % (Manual) Nucleated RBC % Seg Neutrophils # Seg Neutrophils # Man Lymphocytes # (Manual) D-Dimer ABG pH POC ABG pCO2 POC ABG pO2 ABG pO2 ABG HCO3 ABG O2 Saturation ABG Base Excess ABG Hemoglobin ABG Oxyhemoglobin ABG Sodium ABG Potassium ABG Chloride ABG Glucose Oxyhemoglobin Sodium Potassium Chloride Carbon Dioxide BUN Creatinine Glucose POC Glucose 144 H 230 H 162 H Lactic Acid Calcium Magnesium Ferritin Total Bilirubin Direct Bilirubin AST ALT Alkaline Phosphatase Lactate Dehydrogenase C-Reactive Protein Total Protein Albumin Triglycerides Arterial Blood Glucose Arterial Blood Ionized Calcium Urine WBC (Auto) Coronavirus (PCR) SARS-CoV-2 IgG Ab 06/06/20 06/07/20 06/07/20 23:50 04:34 06:03 WBC RBC Hgb Hct MCV MCH MCHC RDW Lymph % (Auto) Lymph # (Auto) Seg Neutrophils % Seg Neuts % (Manual) Lymphocytes % (Manual) Nucleated RBC % Seg Neutrophils # Seg Neutrophils # Man Lymphocytes # (Manual) D-Dimer ABG pH 7.511 H POC ABG pCO2 53.5 H POC ABG pO2 114.5 H ABG pO2 ABG HCO3 ABG O2 Saturation ABG Base Excess ABG Hemoglobin 9.4 L ABG Oxyhemoglobin ABG Sodium 134.5 L ABG Potassium ABG Chloride 94.0 L ABG Glucose 186 H Oxyhemoglobin Sodium Potassium Chloride Carbon Dioxide BUN Creatinine Glucose POC Glucose 181 H 155 H Lactic Acid Calcium Magnesium Ferritin Total Bilirubin Direct Bilirubin AST ALT Alkaline Phosphatase Lactate Dehydrogenase C-Reactive Protein Total Protein Albumin Triglycerides Arterial Blood Glucose 186 H Arterial Blood Ionized Calcium 4.5 L Urine WBC (Auto) Coronavirus (PCR) SARS-CoV-2 IgG Ab 06/07/20 06/07/20 06/07/20 13:41 14:58 14:58 WBC RBC 2.72 L Hgb 9.3 L Hct 27.2 L MCV 100 H MCH 34 H MCHC RDW Lymph % (Auto) Lymph # (Auto) Seg Neutrophils % Seg Neuts % (Manual) Lymphocytes % (Manual) Nucleated RBC % Seg Neutrophils # Seg Neutrophils # Man Lymphocytes # (Manual) D-Dimer ABG pH POC ABG pCO2 POC ABG pO2 ABG pO2 ABG HCO3 ABG O2 Saturation ABG Base Excess ABG Hemoglobin ABG Oxyhemoglobin ABG Sodium ABG Potassium ABG Chloride ABG Glucose Oxyhemoglobin Sodium Potassium Chloride 93.5 L Carbon Dioxide 39 H BUN 22 H Creatinine 0.4 L Glucose 188 H POC Glucose 201 H Lactic Acid Calcium Magnesium Ferritin Total Bilirubin Direct Bilirubin AST 61 H ALT 273 H Alkaline Phosphatase Lactate Dehydrogenase C-Reactive Protein Total Protein 5.9 L Albumin 2.7 L Triglycerides Arterial Blood Glucose Arterial Blood Ionized Calcium Urine WBC (Auto) Coronavirus (PCR) SARS-CoV-2 IgG Ab Chest x-ray: image reviewed Allied health notes reviewed: RT
[2020-06-07] MEDS: POLYETHYLENE GLYCOL 3350 17 GM POWDER PO SCH (21:35)
[2020-06-08] MEDS: methylPREDNISolone Sod Succinate 40 MG/1 ML INJ IV SCH ×2 (05:34→17:58)
[2020-06-08] MEDS: INSULIN LISPRO 100 UNIT/ML VIAL 3 mL SUB-Q SCH ×4 (05:35→23:51)
[2020-06-08] MEDS: MIDAZOLAM 100 MG in SODIUM CHLORIDE 0.9% 80 ML IV SCH (05:39)
[2020-06-08] MEDS: LORazepam 2 MG/ML VIAL IV PRN (07:58)
[2020-06-08] MEDS: ALPRAZolam 0.25 MG TAB PO PRN (08:29)
[2020-06-08] MEDS: MIDAZOLAM 2 MG/2 ML INJ IV PRN (08:29)
[2020-06-08] MEDS: SENNOSIDES 8.6 MG TAB PO SCH ×2 (09:19→22:16)
[2020-06-08] MEDS: ENOXAPARIN 120 MG/0.8 ML INJ SUB-Q SCH ×2 (09:19→22:17)
[2020-06-08] MEDS: FOLIC ACID 1 MG TAB PO SCH (09:20)
[2020-06-08] MEDS: DOCUSATE SODIUM 100 MG/10 ML ORAL LIQD PO SCH ×2 (09:20→22:16)
[2020-06-08] MEDS: FAMOTIDINE 20 MG TAB PO SCH ×2 (09:20→22:16)
[2020-06-08] MEDS: QUEtiapine 100 MG TAB PO SCH ×2 (09:20→22:16)
[2020-06-08] MEDS: NORepinephrine/NS 4 MG-250 ML 4 MG/250 ML BAG IV SCH (10:42)
--- NOTE | 2020-06-08 12:20 | Progress Note ---
Assessment and Plan Acute hypoxemic respiratory failure due to COVID-19 Severe Sepsis Bilateral pneumonia Acute kidney injury (SEN) with acute tubular necrosis (ATN) Alcohol dependence Elevated liver function tests - ETT day # 18; he will need a tracheostomy once numbers better - continue to wean supplemental oxygen for target O2 sat's > 92% acutely - keep peep at 12 for now - prn lab work and address electrolytes - weaqn Levophed for target MAP > 65 mmHg - continue care as below otherwise; - continue Daily SAT and SBT assessment as tolerated - VAP bundle addressed - continue lung protective strategies - continue bronchodilators with pulmonary hygiene per RT - wean per pulmonary driven protocols otherwise - accuchecks with glycemic control per SSI (While critically ill target blood glucose of 140-180 mg/dL; avoid hypoglycemia) - sedation prn for target RASS -1 to -2 - continue enteral nutritional support at goal rate as tolerated - continue airborne and contact isolation - follow repeat COVID-19 testing - continue Zinc & Vit C supplementaion - continue systemic steroids for Asthma / severe COVID infection - Prone positioning as tolerated - continue empiric full dose anticoagulation re: elevated d-dimers / hypercoagulable state - NOT a candidate for COVID convalescent plasma - continue systemic steroids X >/= 10 days - complete remdesivir dosing (total 5 days) - Monitor liver function test on Remdesivir - trend inflammatory markers - ferritin, Ddimer, CRP, LDH; to aid clinical decision making - empiric AB's coverage per ID rec's otherwise - accuchecks with glycemic control per SSI (While critically ill target blood glucose of 140-180 mg/dL; avoid hypoglycemia) - avoid nephrotoxins, renally dose all medications - continue to avoid benzodiazepine's, reduce the possibility of delirium - prn analgesia per CPOT score - Maintenance of sleep-wake cycle, avoid delirium - continue to avoid benzodiazepine's, reduce the possibility of delirium - aspiration precautions - G.I. & VTE prophylaxis - PT/OT/ROM exercises - continue mobility protocols for pressure ulcer prophylaxis - Monitor hemodynamics closely - continue other care per attending / other consultants - discharge planning ongoing concurrently .... Re-evaluate in am & prn CONDITION: CRITICAL PROGNOSIS: GUARDED CODE STATUS: FULL CODE The high probability of a clinically significant, sudden or life-threatening deterioration of the [respiratory, cardiovascular, hematologic & neurologic] system(s) required my full and direct attention, intervention and personal management. The aggregate critical care time was [32] minutes without overlap. Time includes spent on; [x] Data Review and interpretation [x] Patient assessment and monitoring of vital signs [x] Documentation [x] Medication orders and management Subjective Date of service: 06/08/20 Principal diagnosis: Ac hypoxemic resp failure; COVID-19; Severe Sepsis; Shaggy PNA; Alcohol Abuse Interval history: Patient is seen today for: Acute hypoxemic respiratory failure due to COVID-19; Severe Sepsis; Bilateral pneumonia; Alcohol dependence; Elevated liver function tests Seen and examined at bedside; 24hour events reviewed; nursing and respiratory care staff consulted; no adverse overnight events reported to me; resting in bed; remains on MVS; FiO2 at 60% with peep at 12; back on Levophed @ 4 mics/min; no emesis or overt aspiration Objective Vital Signs - 12hr 06/08/20 06/08/20 06/08/20 01:00 01:36 02:00 Temperature Pulse Rate 80 83 78 Pulse Rate [ From Monitor] Respiratory 21 23 Rate Blood Pressure 100/58 90/61 97/62 O2 Sat by Pulse 98 100 99 Oximetry 06/08/20 06/08/20 06/08/20 03:00 04:00 04:01 Temperature 98.8 F Pulse Rate 77 86 82 Pulse Rate [ 86 From Monitor] Respiratory 27 H 23 31 H Rate Blood Pressure 93/56 126/70 O2 Sat by Pulse 96 93 Oximetry 06/08/20 06/08/20 06/08/20 05:00 05:17 06:00 Temperature Pulse Rate 72 68 65 Pulse Rate [ From Monitor] Respiratory 20 20 Rate Blood Pressure 79/53 78/46 80/52 O2 Sat by Pulse 98 99 99 Oximetry 06/08/20 06/08/20 06/08/20 07:00 08:00 08:50 Temperature 99.0 F Pulse Rate 100 H 122 H 110 H Pulse Rate [ 122 H From Monitor] Respiratory 23 30 H Rate Blood Pressure 100/61 128/92 103/55 O2 Sat by Pulse 93 82 L 94 Oximetry 06/08/20 06/08/20 06/08/20 09:00 10:01 11:01 Temperature Pulse Rate 113 H 90 76 Pulse Rate [ From Monitor] Respiratory 24 20 20 Rate Blood Pressure 127/73 79/49 108/63 O2 Sat by Pulse 78 L 99 100 Oximetry 06/08/20 12:00 Temperature Pulse Rate 72 Pulse Rate [ 122 H From Monitor] Respiratory 20 Rate Blood Pressure 103/66 O2 Sat by Pulse 99 Oximetry Constitutional: no acute distress, asleep, other (middle aged obese male without significant ventilator dyssynchrony) Eyes: non-icteric ENT: oropharynx moist, other (ETT 24 cm CHILO) Neck: supple, no JVD Effort: mildly labored Ascultation: Bilateral: diminished breath sounds, rhonchi Percussion: Bilateral: not dull Cardiovascular: regular rate and rhythm Gastrointestinal: hypoactive bowel sounds, soft, non-tender, non-distended (protuberant) Integumentary: normal Extremities: no cyanosis, no edema, pulses normal, no ischemia or petechiae Neurologic: non-focal exam, pupils equal and round, CN II-XII normal, motor strength normal and, other (sedated) Psychiatric: other (sedated) CBC and BMP: 06/07/20 14:58 06/07/20 14:58 ABG, PT/INR, D-dimer: ABG ABG pH 7.511 (7.320-7.450) H 06/07/20 04:34 POC ABG pCO2 53.5 mmHg (32.0-48.0) H 06/07/20 04:34 ABG pCO2 69.6 mm Hg 06/05/20 12:35 POC ABG pO2 114.5 mmHg (83-108) H 06/07/20 04:34 ABG pO2 127.9 mm Hg (80.0-90.0) H 06/05/20 12:35 POC ABG HCO3 41.8 06/07/20 04:34 ABG O2 Saturation 98.3 % (95.0-99.0) 06/05/20 12:35 PT/INR, D-dimer D-Dimer 1887.82 ng/mlDDU (0-234) H 05/20/20 08:16 Abnormal lab findings: Abnormal Labs 05/09/20 05/09/20 05/09/20 12:59 12:59 12:59 WBC 11.8 H RBC Hgb Hct MCV 96 H MCH 34 H MCHC 35 H RDW Lymph % (Auto) 6.9 L Lymph # (Auto) 0.8 L Seg Neutrophils % 87.5 H Seg Neuts % (Manual) Lymphocytes % (Manual) Nucleated RBC % Seg Neutrophils # 10.3 H Seg Neutrophils # Man Lymphocytes # (Manual) D-Dimer ABG pH POC ABG pCO2 POC ABG pO2 ABG pO2 ABG HCO3 ABG O2 Saturation ABG Base Excess ABG Hemoglobin ABG Oxyhemoglobin ABG Sodium ABG Potassium ABG Chloride ABG Glucose Oxyhemoglobin Sodium 130 L Potassium 3.5 L Chloride 86.4 L Carbon Dioxide BUN 33 H Creatinine 2.3 H Glucose 156 H POC Glucose Lactic Acid Calcium Magnesium Ferritin Total Bilirubin 3.40 H Direct Bilirubin 1.7 H AST 385 H ALT 134 H Alkaline Phosphatase Lactate Dehydrogenase C-Reactive Protein Total Protein Albumin 3.0 L Triglycerides Arterial Blood Glucose Arterial Blood Ionized Calcium Urine WBC (Auto) Coronavirus (PCR) SARS-CoV-2 IgG Ab 05/09/20 05/09/20 05/09/20 12:59 12:59 12:59 WBC RBC Hgb Hct MCV MCH MCHC RDW Lymph % (Auto) Lymph # (Auto) Seg Neutrophils % Seg Neuts % (Manual) Lymphocytes % (Manual) Nucleated RBC % Seg Neutrophils # Seg Neutrophils # Man Lymphocytes # (Manual) D-Dimer 3242.51 H ABG pH POC ABG pCO2 POC ABG pO2 ABG pO2 ABG HCO3 ABG O2 Saturation ABG Base Excess ABG Hemoglobin ABG Oxyhemoglobin ABG Sodium ABG Potassium ABG Chloride ABG Glucose Oxyhemoglobin Sodium Potassium Chloride Carbon Dioxide BUN Creatinine Glucose 158 H POC Glucose Lactic Acid 3.50 H* Calcium Magnesium Ferritin Total Bilirubin Direct Bilirubin AST ALT Alkaline Phosphatase Lactate Dehydrogenase 2166 H C-Reactive Protein 39.00 H Total Protein Albumin Triglycerides Arterial Blood Glucose Arterial Blood Ionized Calcium Urine WBC (Auto) Coronavirus (PCR) SARS-CoV-2 IgG Ab 05/09/20 05/09/20 05/09/20 12:59 14:20 14:20 WBC RBC Hgb Hct MCV MCH MCHC RDW Lymph % (Auto) Lymph # (Auto) Seg Neutrophils % Seg Neuts % (Manual) Lymphocytes % (Manual) Nucleated RBC % Seg Neutrophils # Seg Neutrophils # Man Lymphocytes # (Manual) D-Dimer 2861.78 H ABG pH POC ABG pCO2 POC ABG pO2 ABG pO2 ABG HCO3 ABG O2 Saturation ABG Base Excess ABG Hemoglobin ABG Oxyhemoglobin ABG Sodium ABG Potassium ABG Chloride ABG Glucose Oxyhemoglobin Sodium Potassium Chloride Carbon Dioxide BUN Creatinine Glucose POC Glucose Lactic Acid 2.20 H* Calcium Magnesium Ferritin 17736.0 H Total Bilirubin Direct Bilirubin AST ALT Alkaline Phosphatase Lactate Dehydrogenase C-Reactive Protein Total Protein Albumin Triglycerides Arterial Blood Glucose Arterial Blood Ionized Calcium Urine WBC (Auto) Coronavirus (PCR) SARS-CoV-2 IgG Ab 05/09/20 05/09/20 05/09/20 14:20 14:20 15:56 WBC RBC Hgb Hct MCV MCH MCHC RDW Lymph % (Auto) Lymph # (Auto) Seg Neutrophils % Seg Neuts % (Manual) Lymphocytes % (Manual) Nucleated RBC % Seg Neutrophils # Seg Neutrophils # Man Lymphocytes # (Manual) D-Dimer ABG pH POC ABG pCO2 POC ABG pO2 57.3 L ABG pO2 ABG HCO3 ABG O2 Saturation ABG Base Excess ABG Hemoglobin ABG Oxyhemoglobin 86.3 L ABG Sodium 129.9 L ABG Potassium ABG Chloride ABG Glucose 146 H Oxyhemoglobin Sodium Potassium Chloride Carbon Dioxide BUN Creatinine Glucose 143 H POC Glucose Lactic Acid Calcium Magnesium Ferritin 87052.0 H Total Bilirubin Direct Bilirubin AST ALT Alkaline Phosphatase Lactate Dehydrogenase 1953 H C-Reactive Protein 33.50 H Total Protein Albumin Triglycerides Arterial Blood Glucose 146 H Arterial Blood Ionized Calcium 3.9 L Urine WBC (Auto) Coronavirus (PCR) SARS-CoV-2 IgG Ab 05/10/20 05/10/20 05/10/20 10:32 10:32 18:50 WBC 15.4 H RBC Hgb Hct MCV 97 H MCH 33 H MCHC RDW 13.1 L Lymph % (Auto) Lymph # (Auto) Seg Neutrophils % Seg Neuts % (Manual) 89.0 H Lymphocytes % (Manual) 8.0 L Nucleated RBC % Seg Neutrophils # Seg Neutrophils # Man 13.7 H Lymphocytes # (Manual) D-Dimer ABG pH POC ABG pCO2 POC ABG pO2 ABG pO2 ABG HCO3 ABG O2 Saturation ABG Base Excess ABG Hemoglobin ABG Oxyhemoglobin ABG Sodium ABG Potassium ABG Chloride ABG Glucose Oxyhemoglobin Sodium 136 L Potassium Chloride 97.4 L Carbon Dioxide BUN 37 H Creatinine 1.7 H Glucose 209 H POC Glucose Lactic Acid Calcium Magnesium Ferritin > 2000.0 H Total Bilirubin Direct Bilirubin AST ALT Alkaline Phosphatase Lactate Dehydrogenase C-Reactive Protein Total Protein Albumin Triglycerides Arterial Blood Glucose Arterial Blood Ionized Calcium Urine WBC (Auto) Coronavirus (PCR) SARS-CoV-2 IgG Ab 05/10/20 05/10/20 05/10/20 18:50 19:00 Unknown WBC RBC Hgb Hct MCV MCH MCHC RDW Lymph % (Auto) Lymph # (Auto) Seg Neutrophils % Seg Neuts % (Manual) Lymphocytes % (Manual) Nucleated RBC % Seg Neutrophils # Seg Neutrophils # Man Lymphocytes # (Manual) D-Dimer > 42898 H ABG pH POC ABG pCO2 POC ABG pO2 ABG pO2 ABG HCO3 ABG O2 Saturation ABG Base Excess ABG Hemoglobin ABG Oxyhemoglobin ABG Sodium ABG Potassium ABG Chloride ABG Glucose Oxyhemoglobin Sodium Potassium Chloride Carbon Dioxide BUN Creatinine Glucose POC Glucose Lactic Acid Calcium Magnesium Ferritin Total Bilirubin Direct Bilirubin AST ALT Alkaline Phosphatase Lactate Dehydrogenase 1879 H C-Reactive Protein 24.80 H Total Protein Albumin Triglycerides Arterial Blood Glucose Arterial Blood Ionized Calcium Urine WBC (Auto) 11.0 H Coronavirus (PCR) SARS-CoV-2 IgG Ab 05/10/20 05/11/20 05/11/20 Unknown 07:30 07:30 WBC RBC Hgb Hct MCV MCH MCHC RDW Lymph % (Auto) Lymph # (Auto) Seg Neutrophils % Seg Neuts % (Manual) Lymphocytes % (Manual) Nucleated RBC % Seg Neutrophils # Seg Neutrophils # Man Lymphocytes # (Manual) D-Dimer > 2000 H ABG pH POC ABG pCO2 POC ABG pO2 ABG pO2 ABG HCO3 ABG O2 Saturation ABG Base Excess ABG Hemoglobin ABG Oxyhemoglobin ABG Sodium ABG Potassium ABG Chloride ABG Glucose Oxyhemoglobin Sodium Potassium Chloride 96.3 L Carbon Dioxide BUN 36 H Creatinine Glucose 161 H POC Glucose Lactic Acid Calcium 8.3 L Magnesium Ferritin Total Bilirubin 1.50 H Direct Bilirubin 0.6 H AST 178 H ALT 111 H Alkaline Phosphatase Lactate Dehydrogenase C-Reactive Protein Total Protein Albumin 3.0 L Triglycerides Arterial Blood Glucose Arterial Blood Ionized Calcium Urine WBC (Auto) Coronavirus (PCR) Positive A SARS-CoV-2 IgG Ab 05/11/20 05/11/20 05/11/20 07:30 07:30 07:30 WBC RBC Hgb Hct MCV MCH MCHC RDW Lymph % (Auto) Lymph # (Auto) Seg Neutrophils % Seg Neuts % (Manual) Lymphocytes % (Manual) Nucleated RBC % Seg Neutrophils # Seg Neutrophils # Man Lymphocytes # (Manual) D-Dimer ABG pH POC ABG pCO2 POC ABG pO2 ABG pO2 ABG HCO3 ABG O2 Saturation ABG Base Excess ABG Hemoglobin ABG Oxyhemoglobin ABG Sodium ABG Potassium ABG Chloride ABG Glucose Oxyhemoglobin Sodium Potassium Chloride Carbon Dioxide BUN Creatinine Glucose POC Glucose Lactic Acid Calcium Magnesium Ferritin 99691.0 H Total Bilirubin Direct Bilirubin AST ALT Alkaline Phosphatase Lactate Dehydrogenase 1523 H C-Reactive Protein 12.90 H Total Protein Albumin Triglycerides Arterial Blood Glucose Arterial Blood Ionized Calcium Urine WBC (Auto) Coronavirus (PCR) SARS-CoV-2 IgG Ab Reactive A 05/13/20 05/13/20 05/15/20 05:20 05:20 08:15 WBC RBC Hgb Hct MCV MCH MCHC RDW Lymph % (Auto) Lymph # (Auto) Seg Neutrophils % Seg Neuts % (Manual) Lymphocytes % (Manual) Nucleated RBC % Seg Neutrophils # Seg Neutrophils # Man Lymphocytes # (Manual) D-Dimer > 15139 H 5318.28 H ABG pH POC ABG pCO2 POC ABG pO2 ABG pO2 ABG HCO3 ABG O2 Saturation ABG Base Excess ABG Hemoglobin ABG Oxyhemoglobin ABG Sodium ABG Potassium ABG Chloride ABG Glucose Oxyhemoglobin Sodium Potassium Chloride Carbon Dioxide 32 H BUN 30 H Creatinine Glucose 156 H POC Glucose Lactic Acid Calcium Magnesium 2.60 H Ferritin Total Bilirubin 1.40 H Direct Bilirubin AST 121 H ALT 119 H Alkaline Phosphatase Lactate Dehydrogenase 957 H C-Reactive Protein 4.00 H Total Protein Albumin 3.0 L Triglycerides Arterial Blood Glucose Arterial Blood Ionized Calcium Urine WBC (Auto) Coronavirus (PCR) SARS-CoV-2 IgG Ab 05/15/20 05/15/20 05/15/20 08:15 08:15 08:15 WBC 12.4 H RBC Hgb Hct MCV 98 H MCH 33 H MCHC RDW Lymph % (Auto) 9.7 L Lymph # (Auto) Seg Neutrophils % 86.8 H Seg Neuts % (Manual) Lymphocytes % (Manual) Nucleated RBC % Seg Neutrophils # 10.8 H Seg Neutrophils # Man Lymphocytes # (Manual) D-Dimer ABG pH POC ABG pCO2 POC ABG pO2 ABG pO2 ABG HCO3 ABG O2 Saturation ABG Base Excess ABG Hemoglobin ABG Oxyhemoglobin ABG Sodium ABG Potassium ABG Chloride ABG Glucose Oxyhemoglobin Sodium Potassium Chloride 94.8 L Carbon Dioxide 32 H BUN 22 H Creatinine Glucose 115 H POC Glucose Lactic Acid Calcium 8.3 L Magnesium Ferritin 2494.0 H Total Bilirubin Direct Bilirubin AST 73 H ALT 121 H Alkaline Phosphatase Lactate Dehydrogenase 835 H C-Reactive Protein 3.40 H Total Protein 6.1 L Albumin 3.0 L Triglycerides Arterial Blood Glucose Arterial Blood Ionized Calcium Urine WBC (Auto) Coronavirus (PCR) SARS-CoV-2 IgG Ab 05/17/20 05/17/20 05/17/20 05:50 05:50 05:50 WBC RBC Hgb Hct MCV MCH MCHC RDW Lymph % (Auto) Lymph # (Auto) Seg Neutrophils % Seg Neuts % (Manual) Lymphocytes % (Manual) Nucleated RBC % Seg Neutrophils # Seg Neutrophils # Man Lymphocytes # (Manual) D-Dimer 2911.42 H ABG pH POC ABG pCO2 POC ABG pO2 ABG pO2 ABG HCO3 ABG O2 Saturation ABG Base Excess ABG Hemoglobin ABG Oxyhemoglobin ABG Sodium ABG Potassium ABG Chloride ABG Glucose Oxyhemoglobin Sodium 136 L Potassium Chloride 96.0 L Carbon Dioxide 34 H BUN 22 H Creatinine Glucose 140 H POC Glucose Lactic Acid Calcium Magnesium Ferritin 2082.0 H Total Bilirubin Direct Bilirubin AST ALT 75 H Alkaline Phosphatase Lactate Dehydrogenase 601 H C-Reactive Protein 2.70 H Total Protein Albumin 2.9 L Triglycerides Arterial Blood Glucose Arterial Blood Ionized Calcium Urine WBC (Auto) Coronavirus (PCR) SARS-CoV-2 IgG Ab 05/17/20 05/18/20 05/20/20 05:50 12:22 08:16 WBC RBC Hgb Hct MCV 98 H MCH 33 H MCHC RDW Lymph % (Auto) 8.0 L Lymph # (Auto) 0.8 L Seg Neutrophils % 89.3 H Seg Neuts % (Manual) Lymphocytes % (Manual) Nucleated RBC % Seg Neutrophils # 8.8 H Seg Neutrophils # Man Lymphocytes # (Manual) D-Dimer 1887.82 H ABG pH POC ABG pCO2 POC ABG pO2 ABG pO2 ABG HCO3 ABG O2 Saturation ABG Base Excess ABG Hemoglobin ABG Oxyhemoglobin ABG Sodium ABG Potassium ABG Chloride ABG Glucose Oxyhemoglobin Sodium Potassium Chloride Carbon Dioxide BUN Creatinine Glucose POC Glucose 178 H Lactic Acid Calcium Magnesium Ferritin Total Bilirubin Direct Bilirubin AST ALT Alkaline Phosphatase Lactate Dehydrogenase C-Reactive Protein Total Protein Albumin Triglycerides Arterial Blood Glucose Arterial Blood Ionized Calcium Urine WBC (Auto) Coronavirus (PCR) SARS-CoV-2 IgG Ab 05/20/20 05/20/20 05/21/20 08:16 08:16 21:10 WBC RBC Hgb Hct MCV MCH MCHC RDW Lymph % (Auto) Lymph # (Auto) Seg Neutrophils % Seg Neuts % (Manual) Lymphocytes % (Manual) Nucleated RBC % Seg Neutrophils # Seg Neutrophils # Man Lymphocytes # (Manual) D-Dimer ABG pH 7.483 H POC ABG pCO2 POC ABG pO2 ABG pO2 50.0 L ABG HCO3 27.0 H ABG O2 Saturation 86.2 L ABG Base Excess 3.7 H ABG Hemoglobin ABG Oxyhemoglobin ABG Sodium ABG Potassium ABG Chloride ABG Glucose Oxyhemoglobin 84.2 L Sodium Potassium Chloride Carbon Dioxide BUN Creatinine Glucose POC Glucose Lactic Acid Calcium Magnesium Ferritin 1960.0 H Total Bilirubin Direct Bilirubin AST ALT Alkaline Phosphatase Lactate Dehydrogenase 705 H C-Reactive Protein 3.10 H Total Protein Albumin Triglycerides Arterial Blood Glucose Arterial Blood Ionized Calcium Urine WBC (Auto) Coronavirus (PCR) SARS-CoV-2 IgG Ab 05/22/20 05/22/20 05/22/20 04:01 07:53 07:53 WBC 19.2 H RBC Hgb Hct MCV 98 H MCH 34 H MCHC RDW Lymph % (Auto) Lymph # (Auto) Seg Neutrophils % Seg Neuts % (Manual) 96.0 H Lymphocytes % (Manual) 1.0 L Nucleated RBC % Seg Neutrophils # Seg Neutrophils # Man 18.4 H Lymphocytes # (Manual) 0.2 L D-Dimer ABG pH POC ABG pCO2 53.8 H POC ABG pO2 125.5 H ABG pO2 ABG HCO3 ABG O2 Saturation ABG Base Excess ABG Hemoglobin ABG Oxyhemoglobin ABG Sodium 131.8 L ABG Potassium 4.8 H ABG Chloride 94.0 L ABG Glucose 163 H Oxyhemoglobin Sodium 131 L Potassium Chloride 93.4 L Carbon Dioxide BUN 40 H Creatinine Glucose 176 H POC Glucose Lactic Acid Calcium Magnesium 2.70 H Ferritin Total Bilirubin 1.80 H Direct Bilirubin AST 45 H ALT 116 H Alkaline Phosphatase 181 H Lactate Dehydrogenase C-Reactive Protein Total Protein Albumin 2.6 L Triglycerides Arterial Blood Glucose 163 H Arterial Blood Ionized Calcium 4.5 L Urine WBC (Auto) Coronavirus (PCR) SARS-CoV-2 IgG Ab 05/23/20 05/24/20 05/24/20 04:17 03:07 04:08 WBC RBC Hgb Hct MCV MCH MCHC RDW Lymph % (Auto) Lymph # (Auto) Seg Neutrophils % Seg Neuts % (Manual) Lymphocytes % (Manual) Nucleated RBC % Seg Neutrophils # Seg Neutrophils # Man Lymphocytes # (Manual) D-Dimer ABG pH 7.328 L POC ABG pCO2 POC ABG pO2 ABG pO2 72.8 L 73.4 L ABG HCO3 31.0 H 34.0 H ABG O2 Saturation 93.5 L ABG Base Excess 3.5 H 7.7 H ABG Hemoglobin 13.3 L 12.1 L ABG Oxyhemoglobin ABG Sodium ABG Potassium ABG Chloride ABG Glucose Oxyhemoglobin 91.5 L 94.3 L Sodium Potassium Chloride Carbon Dioxide BUN Creatinine Glucose POC Glucose 155 H Lactic Acid Calcium Magnesium Ferritin Total Bilirubin Direct Bilirubin AST ALT Alkaline Phosphatase Lactate Dehydrogenase C-Reactive Protein Total Protein Albumin Triglycerides Arterial Blood Glucose Arterial Blood Ionized Calcium Urine WBC (Auto) Coronavirus (PCR) SARS-CoV-2 IgG Ab 05/24/20 05/24/20 05/24/20 09:33 12:21 17:52 WBC RBC Hgb Hct MCV MCH MCHC RDW Lymph % (Auto) Lymph # (Auto) Seg Neutrophils % Seg Neuts % (Manual) Lymphocytes % (Manual) Nucleated RBC % Seg Neutrophils # Seg Neutrophils # Man Lymphocytes # (Manual) D-Dimer ABG pH POC ABG pCO2 POC ABG pO2 ABG pO2 ABG HCO3 ABG O2 Saturation ABG Base Excess ABG Hemoglobin ABG Oxyhemoglobin ABG Sodium ABG Potassium ABG Chloride ABG Glucose Oxyhemoglobin Sodium Potassium Chloride Carbon Dioxide 34 H D BUN 28 H Creatinine 0.7 L Glucose 168 H POC Glucose 173 H 164 H Lactic Acid Calcium Magnesium Ferritin Total Bilirubin Direct Bilirubin AST ALT Alkaline Phosphatase Lactate Dehydrogenase C-Reactive Protein Total Protein Albumin Triglycerides Arterial Blood Glucose Arterial Blood Ionized Calcium Urine WBC (Auto) Coronavirus (PCR) SARS-CoV-2 IgG Ab 05/24/20 05/25/20 05/25/20 23:47 04:29 05:46 WBC RBC Hgb Hct MCV MCH MCHC RDW Lymph % (Auto) Lymph # (Auto) Seg Neutrophils % Seg Neuts % (Manual) Lymphocytes % (Manual) Nucleated RBC % Seg Neutrophils # Seg Neutrophils # Man Lymphocytes # (Manual) D-Dimer ABG pH POC ABG pCO2 68.6 H POC ABG pO2 ABG pO2 ABG HCO3 ABG O2 Saturation ABG Base Excess ABG Hemoglobin ABG Oxyhemoglobin ABG Sodium ABG Potassium 4.7 H ABG Chloride ABG Glucose 226 H Oxyhemoglobin Sodium Potassium Chloride Carbon Dioxide BUN Creatinine Glucose POC Glucose 171 H 201 H Lactic Acid Calcium Magnesium Ferritin Total Bilirubin Direct Bilirubin AST ALT Alkaline Phosphatase Lactate Dehydrogenase C-Reactive Protein Total Protein Albumin Triglycerides Arterial Blood Glucose 226 H Arterial Blood Ionized Calcium Urine WBC (Auto) Coronavirus (PCR) SARS-CoV-2 IgG Ab 05/25/20 05/25/20 05/25/20 08:37 08:37 12:38 WBC 12.0 H RBC 3.64 L Hgb Hct MCV 99 H MCH 33 H MCHC RDW Lymph % (Auto) Lymph # (Auto) Seg Neutrophils % Seg Neuts % (Manual) Lymphocytes % (Manual) Nucleated RBC % Seg Neutrophils # Seg Neutrophils # Man Lymphocytes # (Manual) D-Dimer ABG pH POC ABG pCO2 POC ABG pO2 ABG pO2 ABG HCO3 ABG O2 Saturation ABG Base Excess ABG Hemoglobin ABG Oxyhemoglobin ABG Sodium ABG Potassium ABG Chloride ABG Glucose Oxyhemoglobin Sodium Potassium Chloride 97.3 L Carbon Dioxide 35 H BUN 25 H Creatinine 0.7 L Glucose 191 H POC Glucose 182 H Lactic Acid Calcium Magnesium Ferritin Total Bilirubin Direct Bilirubin AST ALT Alkaline Phosphatase Lactate Dehydrogenase C-Reactive Protein Total Protein Albumin Triglycerides Arterial Blood Glucose Arterial Blood Ionized Calcium Urine WBC (Auto) Coronavirus (PCR) SARS-CoV-2 IgG Ab 05/25/20 05/26/20 05/26/20 18:16 00:06 04:50 WBC RBC Hgb Hct MCV MCH MCHC RDW Lymph % (Auto) Lymph # (Auto) Seg Neutrophils % Seg Neuts % (Manual) Lymphocytes % (Manual) Nucleated RBC % Seg Neutrophils # Seg Neutrophils # Man Lymphocytes # (Manual) D-Dimer ABG pH POC ABG pCO2 POC ABG pO2 ABG pO2 221.5 H ABG HCO3 40.4 H ABG O2 Saturation 99.3 H ABG Base Excess 12.8 H ABG Hemoglobin 10.4 L ABG Oxyhemoglobin ABG Sodium ABG Potassium ABG Chloride ABG Glucose Oxyhemoglobin Sodium Potassium Chloride Carbon Dioxide BUN Creatinine Glucose POC Glucose 176 H 152 H Lactic Acid Calcium Magnesium Ferritin Total Bilirubin Direct Bilirubin AST ALT Alkaline Phosphatase Lactate Dehydrogenase C-Reactive Protein Total Protein Albumin Triglycerides Arterial Blood Glucose Arterial Blood Ionized Calcium Urine WBC (Auto) Coronavirus (PCR) SARS-CoV-2 IgG Ab 05/26/20 05/26/20 05/26/20 06:11 07:51 07:51 WBC 13.4 H RBC 3.64 L Hgb Hct MCV 98 H MCH 33 H MCHC RDW Lymph % (Auto) Lymph # (Auto) Seg Neutrophils % Seg Neuts % (Manual) Lymphocytes % (Manual) Nucleated RBC % Seg Neutrophils # Seg Neutrophils # Man Lymphocytes # (Manual) D-Dimer ABG pH POC ABG pCO2 POC ABG pO2 ABG pO2 ABG HCO3 ABG O2 Saturation ABG Base Excess ABG Hemoglobin ABG Oxyhemoglobin ABG Sodium ABG Potassium ABG Chloride ABG Glucose Oxyhemoglobin Sodium Potassium Chloride 96.6 L Carbon Dioxide 39 H BUN 29 H Creatinine 0.7 L Glucose 174 H POC Glucose 165 H Lactic Acid Calcium Magnesium Ferritin Total Bilirubin Direct Bilirubin AST ALT Alkaline Phosphatase Lactate Dehydrogenase C-Reactive Protein Total Protein Albumin Triglycerides Arterial Blood Glucose Arterial Blood Ionized Calcium Urine WBC (Auto) Coronavirus (PCR) SARS-CoV-2 IgG Ab 05/26/20 05/27/20 05/27/20 23:23 03:43 05:29 WBC RBC Hgb Hct MCV MCH MCHC RDW Lymph % (Auto) Lymph # (Auto) Seg Neutrophils % Seg Neuts % (Manual) Lymphocytes % (Manual) Nucleated RBC % Seg Neutrophils # Seg Neutrophils # Man Lymphocytes # (Manual) D-Dimer ABG pH 7.480 H POC ABG pCO2 52.4 H POC ABG pO2 61.4 L ABG pO2 ABG HCO3 ABG O2 Saturation ABG Base Excess ABG Hemoglobin ABG Oxyhemoglobin ABG Sodium 134.9 L ABG Potassium ABG Chloride 95.0 L ABG Glucose 221 H Oxyhemoglobin Sodium Potassium Chloride Carbon Dioxide BUN Creatinine Glucose POC Glucose 169 H 227 H Lactic Acid Calcium Magnesium Ferritin Total Bilirubin Direct Bilirubin AST ALT Alkaline Phosphatase Lactate Dehydrogenase C-Reactive Protein Total Protein Albumin Triglycerides Arterial Blood Glucose 221 H Arterial Blood Ionized Calcium 4.5 L Urine WBC (Auto) Coronavirus (PCR) SARS-CoV-2 IgG Ab 05/27/20 05/27/20 05/27/20 07:19 12:18 13:50 WBC RBC Hgb Hct MCV MCH MCHC RDW Lymph % (Auto) Lymph # (Auto) Seg Neutrophils % Seg Neuts % (Manual) Lymphocytes % (Manual) Nucleated RBC % Seg Neutrophils # Seg Neutrophils # Man Lymphocytes # (Manual) D-Dimer ABG pH POC ABG pCO2 POC ABG pO2 ABG pO2 ABG HCO3 ABG O2 Saturation ABG Base Excess ABG Hemoglobin ABG Oxyhemoglobin ABG Sodium ABG Potassium ABG Chloride ABG Glucose Oxyhemoglobin Sodium Potassium Chloride Carbon Dioxide BUN Creatinine Glucose POC Glucose 114 H 148 H Lactic Acid Calcium Magnesium Ferritin Total Bilirubin Direct Bilirubin AST ALT Alkaline Phosphatase Lactate Dehydrogenase C-Reactive Protein Total Protein Albumin Triglycerides 247 H Arterial Blood Glucose Arterial Blood Ionized Calcium Urine WBC (Auto) Coronavirus (PCR) SARS-CoV-2 IgG Ab 05/28/20 05/28/20 05/28/20 00:13 04:16 05:22 WBC RBC Hgb Hct MCV MCH MCHC RDW Lymph % (Auto) Lymph # (Auto) Seg Neutrophils % Seg Neuts % (Manual) Lymphocytes % (Manual) Nucleated RBC % Seg Neutrophils # Seg Neutrophils # Man Lymphocytes # (Manual) D-Dimer ABG pH POC ABG pCO2 64.4 H POC ABG pO2 60.5 L ABG pO2 ABG HCO3 ABG O2 Saturation ABG Base Excess ABG Hemoglobin ABG Oxyhemoglobin ABG Sodium ABG Potassium ABG Chloride 95.0 L ABG Glucose 209 H Oxyhemoglobin Sodium Potassium Chloride Carbon Dioxide BUN Creatinine Glucose POC Glucose 155 H 186 H Lactic Acid Calcium Magnesium Ferritin Total Bilirubin Direct Bilirubin AST ALT Alkaline Phosphatase Lactate Dehydrogenase C-Reactive Protein Total Protein Albumin Triglycerides Arterial Blood Glucose 209 H Arterial Blood Ionized Calcium Urine WBC (Auto) Coronavirus (PCR) SARS-CoV-2 IgG Ab 05/28/20 05/28/20 05/29/20 12:45 17:39 00:37 WBC RBC Hgb Hct MCV MCH MCHC RDW Lymph % (Auto) Lymph # (Auto) Seg Neutrophils % Seg Neuts % (Manual) Lymphocytes % (Manual) Nucleated RBC % Seg Neutrophils # Seg Neutrophils # Man Lymphocytes # (Manual) D-Dimer ABG pH POC ABG pCO2 POC ABG pO2 ABG pO2 ABG HCO3 ABG O2 Saturation ABG Base Excess ABG Hemoglobin ABG Oxyhemoglobin ABG Sodium ABG Potassium ABG Chloride ABG Glucose Oxyhemoglobin Sodium Potassium Chloride Carbon Dioxide BUN Creatinine Glucose POC Glucose 143 H 164 H 221 H Lactic Acid Calcium Magnesium Ferritin Total Bilirubin Direct Bilirubin AST ALT Alkaline Phosphatase Lactate Dehydrogenase C-Reactive Protein Total Protein Albumin Triglycerides Arterial Blood Glucose Arterial Blood Ionized Calcium Urine WBC (Auto) Coronavirus (PCR) SARS-CoV-2 IgG Ab 05/29/20 05/29/20 05/29/20 04:15 05:33 12:34 WBC RBC Hgb Hct MCV MCH MCHC RDW Lymph % (Auto) Lymph # (Auto) Seg Neutrophils % Seg Neuts % (Manual) Lymphocytes % (Manual) Nucleated RBC % Seg Neutrophils # Seg Neutrophils # Man Lymphocytes # (Manual) D-Dimer ABG pH 7.463 H POC ABG pCO2 56.3 H POC ABG pO2 81.2 L ABG pO2 ABG HCO3 ABG O2 Saturation ABG Base Excess ABG Hemoglobin ABG Oxyhemoglobin ABG Sodium ABG Potassium ABG Chloride 96.0 L ABG Glucose 194 H Oxyhemoglobin Sodium Potassium Chloride Carbon Dioxide BUN Creatinine Glucose POC Glucose 133 H 221 H Lactic Acid Calcium Magnesium Ferritin Total Bilirubin Direct Bilirubin AST ALT Alkaline Phosphatase Lactate Dehydrogenase C-Reactive Protein Total Protein Albumin Triglycerides Arterial Blood Glucose 194 H Arterial Blood Ionized Calcium 4.5 L Urine WBC (Auto) Coronavirus (PCR) SARS-CoV-2 IgG Ab 05/29/20 05/30/20 05/30/20 18:07 00:12 05:38 WBC RBC Hgb Hct MCV MCH MCHC RDW Lymph % (Auto) Lymph # (Auto) Seg Neutrophils % Seg Neuts % (Manual) Lymphocytes % (Manual) Nucleated RBC % Seg Neutrophils # Seg Neutrophils # Man Lymphocytes # (Manual) D-Dimer ABG pH POC ABG pCO2 POC ABG pO2 ABG pO2 ABG HCO3 ABG O2 Saturation ABG Base Excess ABG Hemoglobin ABG Oxyhemoglobin ABG Sodium ABG Potassium ABG Chloride ABG Glucose Oxyhemoglobin Sodium Potassium Chloride Carbon Dioxide BUN Creatinine Glucose POC Glucose 162 H 190 H 208 H Lactic Acid Calcium Magnesium Ferritin Total Bilirubin Direct Bilirubin AST ALT Alkaline Phosphatase Lactate Dehydrogenase C-Reactive Protein Total Protein Albumin Triglycerides Arterial Blood Glucose Arterial Blood Ionized Calcium Urine WBC (Auto) Coronavirus (PCR) SARS-CoV-2 IgG Ab 05/30/20 05/30/20 05/30/20 09:30 11:35 11:54 WBC 12.4 H RBC 3.48 L Hgb 11.3 L Hct 34.6 L MCV 99 H MCH 33 H MCHC RDW Lymph % (Auto) Lymph # (Auto) Seg Neutrophils % Seg Neuts % (Manual) Lymphocytes % (Manual) Nucleated RBC % Seg Neutrophils # Seg Neutrophils # Man Lymphocytes # (Manual) D-Dimer ABG pH 7.455 H POC ABG pCO2 57.5 H POC ABG pO2 81.5 L ABG pO2 ABG HCO3 ABG O2 Saturation ABG Base Excess ABG Hemoglobin ABG Oxyhemoglobin ABG Sodium ABG Potassium ABG Chloride 96.0 L ABG Glucose 204 H Oxyhemoglobin Sodium Potassium Chloride Carbon Dioxide BUN Creatinine Glucose POC Glucose 183 H Lactic Acid Calcium Magnesium Ferritin Total Bilirubin Direct Bilirubin AST ALT Alkaline Phosphatase Lactate Dehydrogenase C-Reactive Protein Total Protein Albumin Triglycerides Arterial Blood Glucose 204 H Arterial Blood Ionized Calcium Urine WBC (Auto) Coronavirus (PCR) SARS-CoV-2 IgG Ab 05/30/20 05/31/20 05/31/20 18:01 00:10 03:22 WBC RBC Hgb Hct MCV MCH MCHC RDW Lymph % (Auto) Lymph # (Auto) Seg Neutrophils % Seg Neuts % (Manual) Lymphocytes % (Manual) Nucleated RBC % Seg Neutrophils # Seg Neutrophils # Man Lymphocytes # (Manual) D-Dimer ABG pH POC ABG pCO2 60.4 H POC ABG pO2 71.5 L ABG pO2 ABG HCO3 ABG O2 Saturation ABG Base Excess ABG Hemoglobin ABG Oxyhemoglobin ABG Sodium ABG Potassium ABG Chloride 96.0 L ABG Glucose 169 H Oxyhemoglobin Sodium Potassium Chloride Carbon Dioxide BUN Creatinine Glucose POC Glucose 184 H 135 H Lactic Acid Calcium Magnesium Ferritin Total Bilirubin Direct Bilirubin AST ALT Alkaline Phosphatase Lactate Dehydrogenase C-Reactive Protein Total Protein Albumin Triglycerides Arterial Blood Glucose 169 H Arterial Blood Ionized Calcium 4.5 L Urine WBC (Auto) Coronavirus (PCR) SARS-CoV-2 IgG Ab 05/31/20 05/31/20 05/31/20 05:24 11:18 14:41 WBC RBC Hgb Hct MCV MCH MCHC RDW Lymph % (Auto) Lymph # (Auto) Seg Neutrophils % Seg Neuts % (Manual) Lymphocytes % (Manual) Nucleated RBC % Seg Neutrophils # Seg Neutrophils # Man Lymphocytes # (Manual) D-Dimer ABG pH POC ABG pCO2 POC ABG pO2 ABG pO2 ABG HCO3 ABG O2 Saturation ABG Base Excess ABG Hemoglobin ABG Oxyhemoglobin ABG Sodium ABG Potassium ABG Chloride ABG Glucose Oxyhemoglobin Sodium Potassium Chloride 96.8 L Carbon Dioxide 37 H BUN 31 H Creatinine 0.6 L Glucose 213 H POC Glucose 164 H 208 H Lactic Acid Calcium Magnesium Ferritin Total Bilirubin Direct Bilirubin AST ALT Alkaline Phosphatase Lactate Dehydrogenase C-Reactive Protein Total Protein Albumin Triglycerides Arterial Blood Glucose Arterial Blood Ionized Calcium Urine WBC (Auto) Coronavirus (PCR) SARS-CoV-2 IgG Ab 05/31/20 05/31/20 06/01/20 17:37 23:47 03:48 WBC RBC Hgb Hct MCV MCH MCHC RDW Lymph % (Auto) Lymph # (Auto) Seg Neutrophils % Seg Neuts % (Manual) Lymphocytes % (Manual) Nucleated RBC % Seg Neutrophils # Seg Neutrophils # Man Lymphocytes # (Manual) D-Dimer ABG pH POC ABG pCO2 59.7 H POC ABG pO2 73.9 L ABG pO2 ABG HCO3 ABG O2 Saturation ABG Base Excess ABG Hemoglobin ABG Oxyhemoglobin ABG Sodium ABG Potassium ABG Chloride 95.0 L ABG Glucose 256 H Oxyhemoglobin Sodium Potassium Chloride Carbon Dioxide BUN Creatinine Glucose POC Glucose 168 H 178 H Lactic Acid Calcium Magnesium Ferritin Total Bilirubin Direct Bilirubin AST ALT Alkaline Phosphatase Lactate Dehydrogenase C-Reactive Protein Total Protein Albumin Triglycerides Arterial Blood Glucose 256 H Arterial Blood Ionized Calcium Urine WBC (Auto) Coronavirus (PCR) SARS-CoV-2 IgG Ab 06/01/20 06/01/20 06/01/20 05:01 07:47 07:47 WBC 14.4 H RBC 3.46 L Hgb 11.1 L Hct 34.3 L MCV 99 H MCH MCHC RDW Lymph % (Auto) Lymph # (Auto) Seg Neutrophils % Seg Neuts % (Manual) 86.0 H Lymphocytes % (Manual) 9.0 L Nucleated RBC % Seg Neutrophils # Seg Neutrophils # Man 12.4 H Lymphocytes # (Manual) D-Dimer ABG pH POC ABG pCO2 POC ABG pO2 ABG pO2 ABG HCO3 ABG O2 Saturation ABG Base Excess ABG Hemoglobin ABG Oxyhemoglobin ABG Sodium ABG Potassium ABG Chloride ABG Glucose Oxyhemoglobin Sodium Potassium Chloride Carbon Dioxide BUN Creatinine Glucose POC Glucose 197 H Lactic Acid Calcium Magnesium Ferritin Total Bilirubin Direct Bilirubin AST ALT Alkaline Phosphatase Lactate Dehydrogenase C-Reactive Protein Total Protein Albumin Triglycerides 244 H Arterial Blood Glucose Arterial Blood Ionized Calcium Urine WBC (Auto) Coronavirus (PCR) SARS-CoV-2 IgG Ab 06/01/20 06/01/20 06/01/20 07:47 11:46 18:15 WBC RBC Hgb Hct MCV MCH MCHC RDW Lymph % (Auto) Lymph # (Auto) Seg Neutrophils % Seg Neuts % (Manual) Lymphocytes % (Manual) Nucleated RBC % Seg Neutrophils # Seg Neutrophils # Man Lymphocytes # (Manual) D-Dimer ABG pH POC ABG pCO2 POC ABG pO2 ABG pO2 ABG HCO3 ABG O2 Saturation ABG Base Excess ABG Hemoglobin ABG Oxyhemoglobin ABG Sodium ABG Potassium ABG Chloride ABG Glucose Oxyhemoglobin Sodium Potassium Chloride 95.4 L Carbon Dioxide 35 H BUN 30 H Creatinine 0.5 L Glucose 214 H POC Glucose 181 H 221 H Lactic Acid Calcium Magnesium Ferritin Total Bilirubin Direct Bilirubin AST 54 H ALT 235 H Alkaline Phosphatase Lactate Dehydrogenase C-Reactive Protein Total Protein Albumin 2.9 L Triglycerides Arterial Blood Glucose Arterial Blood Ionized Calcium Urine WBC (Auto) Coronavirus (PCR) SARS-CoV-2 IgG Ab 06/01/20 06/02/20 06/02/20 23:12 04:00 05:31 WBC RBC Hgb Hct MCV MCH MCHC RDW Lymph % (Auto) Lymph # (Auto) Seg Neutrophils % Seg Neuts % (Manual) Lymphocytes % (Manual) Nucleated RBC % Seg Neutrophils # Seg Neutrophils # Man Lymphocytes # (Manual) D-Dimer ABG pH 7.465 H POC ABG pCO2 POC ABG pO2 ABG pO2 203.4 H ABG HCO3 41.2 H ABG O2 Saturation 99.3 H ABG Base Excess 15.1 H ABG Hemoglobin 11.5 L ABG Oxyhemoglobin ABG Sodium ABG Potassium ABG Chloride ABG Glucose Oxyhemoglobin Sodium Potassium Chloride Carbon Dioxide BUN Creatinine Glucose POC Glucose 197 H 184 H Lactic Acid Calcium Magnesium Ferritin Total Bilirubin Direct Bilirubin AST ALT Alkaline Phosphatase Lactate Dehydrogenase C-Reactive Protein Total Protein Albumin Triglycerides Arterial Blood Glucose Arterial Blood Ionized Calcium Urine WBC (Auto) Coronavirus (PCR) SARS-CoV-2 IgG Ab 06/02/20 06/02/20 06/02/20 11:49 18:06 23:00 WBC RBC Hgb Hct MCV MCH MCHC RDW Lymph % (Auto) Lymph # (Auto) Seg Neutrophils % Seg Neuts % (Manual) Lymphocytes % (Manual) Nucleated RBC % Seg Neutrophils # Seg Neutrophils # Man Lymphocytes # (Manual) D-Dimer ABG pH POC ABG pCO2 POC ABG pO2 ABG pO2 ABG HCO3 ABG O2 Saturation ABG Base Excess ABG Hemoglobin ABG Oxyhemoglobin ABG Sodium ABG Potassium ABG Chloride ABG Glucose Oxyhemoglobin Sodium Potassium Chloride Carbon Dioxide BUN Creatinine Glucose POC Glucose 195 H 177 H 228 H Lactic Acid Calcium Magnesium Ferritin Total Bilirubin Direct Bilirubin AST ALT Alkaline Phosphatase Lactate Dehydrogenase C-Reactive Protein Total Protein Albumin Triglycerides Arterial Blood Glucose Arterial Blood Ionized Calcium Urine WBC (Auto) Coronavirus (PCR) SARS-CoV-2 IgG Ab 06/03/20 06/03/20 06/03/20 03:58 05:19 12:21 WBC RBC Hgb Hct MCV MCH MCHC RDW Lymph % (Auto) Lymph # (Auto) Seg Neutrophils % Seg Neuts % (Manual) Lymphocytes % (Manual) Nucleated RBC % Seg Neutrophils # Seg Neutrophils # Man Lymphocytes # (Manual) D-Dimer ABG pH POC ABG pCO2 POC ABG pO2 ABG pO2 171.0 H ABG HCO3 42.8 H ABG O2 Saturation ABG Base Excess 15.6 H ABG Hemoglobin 12.3 L ABG Oxyhemoglobin ABG Sodium ABG Potassium ABG Chloride ABG Glucose Oxyhemoglobin Sodium Potassium Chloride Carbon Dioxide BUN Creatinine Glucose POC Glucose 122 H 207 H Lactic Acid Calcium Magnesium Ferritin Total Bilirubin Direct Bilirubin AST ALT Alkaline Phosphatase Lactate Dehydrogenase C-Reactive Protein Total Protein Albumin Triglycerides Arterial Blood Glucose Arterial Blood Ionized Calcium Urine WBC (Auto) Coronavirus (PCR) SARS-CoV-2 IgG Ab 06/03/20 06/03/20 06/04/20 17:27 23:50 03:55 WBC RBC Hgb Hct MCV MCH MCHC RDW Lymph % (Auto) Lymph # (Auto) Seg Neutrophils % Seg Neuts % (Manual) Lymphocytes % (Manual) Nucleated RBC % Seg Neutrophils # Seg Neutrophils # Man Lymphocytes # (Manual) D-Dimer ABG pH POC ABG pCO2 POC ABG pO2 ABG pO2 117.2 H ABG HCO3 42.4 H ABG O2 Saturation ABG Base Excess 15.3 H ABG Hemoglobin 10.5 L ABG Oxyhemoglobin ABG Sodium ABG Potassium ABG Chloride ABG Glucose Oxyhemoglobin Sodium Potassium Chloride Carbon Dioxide BUN Creatinine Glucose POC Glucose 157 H 214 H Lactic Acid Calcium Magnesium Ferritin Total Bilirubin Direct Bilirubin AST ALT Alkaline Phosphatase Lactate Dehydrogenase C-Reactive Protein Total Protein Albumin Triglycerides Arterial Blood Glucose Arterial Blood Ionized Calcium Urine WBC (Auto) Coronavirus (PCR) SARS-CoV-2 IgG Ab 06/04/20 06/04/20 06/04/20 05:49 11:41 17:30 WBC RBC Hgb Hct MCV MCH MCHC RDW Lymph % (Auto) Lymph # (Auto) Seg Neutrophils % Seg Neuts % (Manual) Lymphocytes % (Manual) Nucleated RBC % Seg Neutrophils # Seg Neutrophils # Man Lymphocytes # (Manual) D-Dimer ABG pH POC ABG pCO2 POC ABG pO2 ABG pO2 ABG HCO3 ABG O2 Saturation ABG Base Excess ABG Hemoglobin ABG Oxyhemoglobin ABG Sodium ABG Potassium ABG Chloride ABG Glucose Oxyhemoglobin Sodium Potassium Chloride Carbon Dioxide BUN Creatinine Glucose POC Glucose 149 H 233 H 156 H Lactic Acid Calcium Magnesium Ferritin Total Bilirubin Direct Bilirubin AST ALT Alkaline Phosphatase Lactate Dehydrogenase C-Reactive Protein Total Protein Albumin Triglycerides Arterial Blood Glucose Arterial Blood Ionized Calcium Urine WBC (Auto) Coronavirus (PCR) SARS-CoV-2 IgG Ab 06/04/20 06/04/20 06/04/20 19:01 20:53 23:41 WBC RBC 3.18 L Hgb 10.8 L Hct 31.8 L MCV 100 H MCH 34 H MCHC RDW Lymph % (Auto) Lymph # (Auto) Seg Neutrophils % Seg Neuts % (Manual) 86.0 H Lymphocytes % (Manual) 10.0 L Nucleated RBC % 1.0 H Seg Neutrophils # Seg Neutrophils # Man 8.5 H Lymphocytes # (Manual) 1.0 L D-Dimer ABG pH POC ABG pCO2 POC ABG pO2 ABG pO2 ABG HCO3 ABG O2 Saturation ABG Base Excess ABG Hemoglobin ABG Oxyhemoglobin ABG Sodium ABG Potassium ABG Chloride ABG Glucose Oxyhemoglobin Sodium Potassium 3.4 L D Chloride 96.5 L Carbon Dioxide 41 H* BUN 27 H Creatinine 0.5 L Glucose 173 H POC Glucose 217 H Lactic Acid Calcium Magnesium Ferritin Total Bilirubin Direct Bilirubin AST ALT Alkaline Phosphatase Lactate Dehydrogenase C-Reactive Protein Total Protein Albumin Triglycerides Arterial Blood Glucose Arterial Blood Ionized Calcium Urine WBC (Auto) Coronavirus (PCR) SARS-CoV-2 IgG Ab 06/05/20 06/05/20 06/05/20 06:05 11:54 12:35 WBC RBC Hgb Hct MCV MCH MCHC RDW Lymph % (Auto) Lymph # (Auto) Seg Neutrophils % Seg Neuts % (Manual) Lymphocytes % (Manual) Nucleated RBC % Seg Neutrophils # Seg Neutrophils # Man Lymphocytes # (Manual) D-Dimer ABG pH POC ABG pCO2 POC ABG pO2 ABG pO2 127.9 H ABG HCO3 41.1 H ABG O2 Saturation ABG Base Excess 13.0 H ABG Hemoglobin 13.4 L ABG Oxyhemoglobin ABG Sodium ABG Potassium ABG Chloride ABG Glucose Oxyhemoglobin Sodium Potassium Chloride Carbon Dioxide BUN Creatinine Glucose POC Glucose 137 H 211 H Lactic Acid Calcium Magnesium Ferritin Total Bilirubin Direct Bilirubin AST ALT Alkaline Phosphatase Lactate Dehydrogenase C-Reactive Protein Total Protein Albumin Triglycerides Arterial Blood Glucose Arterial Blood Ionized Calcium Urine WBC (Auto) Coronavirus (PCR) SARS-CoV-2 IgG Ab 06/05/20 06/05/20 06/06/20 17:03 23:49 04:42 WBC RBC Hgb Hct MCV MCH MCHC RDW Lymph % (Auto) Lymph # (Auto) Seg Neutrophils % Seg Neuts % (Manual) Lymphocytes % (Manual) Nucleated RBC % Seg Neutrophils # Seg Neutrophils # Man Lymphocytes # (Manual) D-Dimer ABG pH POC ABG pCO2 56.1 H POC ABG pO2 52.5 L ABG pO2 ABG HCO3 ABG O2 Saturation ABG Base Excess ABG Hemoglobin 11.7 L ABG Oxyhemoglobin ABG Sodium ABG Potassium 3.3 L ABG Chloride 95.0 L ABG Glucose 156 H Oxyhemoglobin Sodium Potassium Chloride Carbon Dioxide BUN Creatinine Glucose POC Glucose 159 H 194 H Lactic Acid Calcium Magnesium Ferritin Total Bilirubin Direct Bilirubin AST ALT Alkaline Phosphatase Lactate Dehydrogenase C-Reactive Protein Total Protein Albumin Triglycerides Arterial Blood Glucose 156 H Arterial Blood Ionized Calcium Urine WBC (Auto) Coronavirus (PCR) SARS-CoV-2 IgG Ab 06/06/20 06/06/20 06/06/20 05:57 12:06 17:38 WBC RBC Hgb Hct MCV MCH MCHC RDW Lymph % (Auto) Lymph # (Auto) Seg Neutrophils % Seg Neuts % (Manual) Lymphocytes % (Manual) Nucleated RBC % Seg Neutrophils # Seg Neutrophils # Man Lymphocytes # (Manual) D-Dimer ABG pH POC ABG pCO2 POC ABG pO2 ABG pO2 ABG HCO3 ABG O2 Saturation ABG Base Excess ABG Hemoglobin ABG Oxyhemoglobin ABG Sodium ABG Potassium ABG Chloride ABG Glucose Oxyhemoglobin Sodium Potassium Chloride Carbon Dioxide BUN Creatinine Glucose POC Glucose 144 H 230 H 162 H Lactic Acid Calcium Magnesium Ferritin Total Bilirubin Direct Bilirubin AST ALT Alkaline Phosphatase Lactate Dehydrogenase C-Reactive Protein Total Protein Albumin Triglycerides Arterial Blood Glucose Arterial Blood Ionized Calcium Urine WBC (Auto) Coronavirus (PCR) SARS-CoV-2 IgG Ab 06/06/20 06/07/20 06/07/20 23:50 04:34 06:03 WBC RBC Hgb Hct MCV MCH MCHC RDW Lymph % (Auto) Lymph # (Auto) Seg Neutrophils % Seg Neuts % (Manual) Lymphocytes % (Manual) Nucleated RBC % Seg Neutrophils # Seg Neutrophils # Man Lymphocytes # (Manual) D-Dimer ABG pH 7.511 H POC ABG pCO2 53.5 H POC ABG pO2 114.5 H ABG pO2 ABG HCO3 ABG O2 Saturation ABG Base Excess ABG Hemoglobin 9.4 L ABG Oxyhemoglobin ABG Sodium 134.5 L ABG Potassium ABG Chloride 94.0 L ABG Glucose 186 H Oxyhemoglobin Sodium Potassium Chloride Carbon Dioxide BUN Creatinine Glucose POC Glucose 181 H 155 H Lactic Acid Calcium Magnesium Ferritin Total Bilirubin Direct Bilirubin AST ALT Alkaline Phosphatase Lactate Dehydrogenase C-Reactive Protein Total Protein Albumin Triglycerides Arterial Blood Glucose 186 H Arterial Blood Ionized Calcium 4.5 L Urine WBC (Auto) Coronavirus (PCR) SARS-CoV-2 IgG Ab 06/07/20 06/07/20 06/07/20 13:41 14:58 14:58 WBC RBC 2.72 L Hgb 9.3 L Hct 27.2 L MCV 100 H MCH 34 H MCHC RDW Lymph % (Auto) Lymph # (Auto) Seg Neutrophils % Seg Neuts % (Manual) Lymphocytes % (Manual) Nucleated RBC % Seg Neutrophils # Seg Neutrophils # Man Lymphocytes # (Manual) D-Dimer ABG pH POC ABG pCO2 POC ABG pO2 ABG pO2 ABG HCO3 ABG O2 Saturation ABG Base Excess ABG Hemoglobin ABG Oxyhemoglobin ABG Sodium ABG Potassium ABG Chloride ABG Glucose Oxyhemoglobin Sodium Potassium Chloride 93.5 L Carbon Dioxide 39 H BUN 22 H Creatinine 0.4 L Glucose 188 H POC Glucose 201 H Lactic Acid Calcium Magnesium Ferritin Total Bilirubin Direct Bilirubin AST 61 H ALT 273 H Alkaline Phosphatase Lactate Dehydrogenase C-Reactive Protein Total Protein 5.9 L Albumin 2.7 L Triglycerides Arterial Blood Glucose Arterial Blood Ionized Calcium Urine WBC (Auto) Coronavirus (PCR) SARS-CoV-2 IgG Ab 06/07/20 06/08/20 06/08/20 23:18 05:31 12:07 WBC RBC Hgb Hct MCV MCH MCHC RDW Lymph % (Auto) Lymph # (Auto) Seg Neutrophils % Seg Neuts % (Manual) Lymphocytes % (Manual) Nucleated RBC % Seg Neutrophils # Seg Neutrophils # Man Lymphocytes # (Manual) D-Dimer ABG pH POC ABG pCO2 POC ABG pO2 ABG pO2 ABG HCO3 ABG O2 Saturation ABG Base Excess ABG Hemoglobin ABG Oxyhemoglobin ABG Sodium ABG Potassium ABG Chloride ABG Glucose Oxyhemoglobin Sodium Potassium Chloride Carbon Dioxide BUN Creatinine Glucose POC Glucose 214 H 129 H 179 H Lactic Acid Calcium Magnesium Ferritin Total Bilirubin Direct Bilirubin AST ALT Alkaline Phosphatase Lactate Dehydrogenase C-Reactive Protein Total Protein Albumin Triglycerides Arterial Blood Glucose Arterial Blood Ionized Calcium Urine WBC (Auto) Coronavirus (PCR) SARS-CoV-2 IgG Ab Chest x-ray: pending Allied health notes reviewed: nursing
[2020-06-08] MEDS: PROPOFOL 500 MG/50 ML IV SCH ×4 (15:08→22:15)
--- NOTE | 2020-06-08 18:33 | Progress Note ---
Assessment and Plan Assessment and Plan Patient intubated last night because of persistent hypoxia --Elevated D-dimers; on full dose anticoagulation However ID requested to get CTA chest, patient is unstable to go for CT As he is requiring high flow oxygen. -- Acute hypoxemic respiratory failure; Patient intubated and on vent support --Elevated D-dimers; check CTA to rule out PE Lower extremity venous Doppler to rule out DVT Patient is already on full dose anticoagulation per COVID-19 protocol -- Novel coronavirus infection with Bilateral pneumonia Coronavirus protocol: IV steroid therapy, IV remdesivir, isolation precautions, contact precautions, prone positioning while in bed, pulmonary toilet. consulted ID --Severe sepsis, due to COVID 19 PNA cont to treat for COVID -- Acute kidney injury (SEN) , likely vasomotor nephropathy Resolved, IV fluids, avoid nephrotoxins -- Alcohol dependence; no episodes of withdrawal symptoms Thiamine, folic acid, multivitamin, CIWA protocol. -- Elevated liver function tests Suspected secondary to alcoholic liver disease. Supportive care, alcohol cessation, patient counseled. -- DVT prophylaxis prophylactic AC with lovenox for elevated D-dimer We will closely monitor patient and adjust management as needed Patient has severe Covid pneumonia, severe hypoxia Critically ill very poor prognosis Full CODE STATUS The high probability of a clinically significant, sudden or life threatening deterioration of the [Covid pneumonia, ID, respiratory, liver] system(s) required my full and direct attention, intervention and personal management. The aggregate critical care time was [32] minutes. This time is in addition to time spent performing reported procedures but includes the following: [x] Data Review and interpretation [x] Patient assessment and monitoring of vital signs [x] Documentation [x] Medication orders and management. Subjective Date of service: 06/07/20 Principal diagnosis: Ac hypoxemic resp failure; COVID-19; Severe Sepsis; Shaggy PNA; Alcohol Abuse Interval history: Brief history; 50 YO Male with Obesity, ETOH Dependence presents to ED for evaluation for shortness of breath, generalized weakness, fatigue, malaise, body aches, decreased exercise tolerance over the past 5 days. EMS was notified and upon arrival the patient was found to be in distress with a pulse oximetry of 76% on room air as well as fever to 103 F. In the ER chest x-ray and was found to have bilateral pneumonia. Patient admitted to medical floor and initiated on pneumonia protocol as well as COVID-19 protocol. Patient severe Covid pneumonia, with persistent severe hypoxemia requiring very high flow oxygen Today on continuous BiPAP, patient is in mild distress, critically ill with very poor prognosis. Patient was on high flow oxygen but could not be maintained above 90 hence patient intubated last night electively 05/17/2020; patient with severe COVID-19 pneumonia, in isolation room Patient is on high flow oxygen, and BiPAP 05/18/20; patient feels slightly better still hypoxic, requiring continuous high flow oxygen and BiPAP Respiratory team trying to wean 05/19/20; patient is severely hypoxemic requiring continuous BiPAP today, complains of generalized weakness Trying to wean off high flow oxygen, patient is in isolation 05/20/2020; patient remains on high flow oxygen/BiPAP/100% nonrebreather. Still is hypoxemic Has sinus tachycardia patient in mild distress Wean off high flow oxygen as tolerated, pulmonary critical following 05/21/20; patient is critically ill, on continuous BiPAP remains hypoxemic in mild distress Patient has severe Covid Pneumonia with persistent hypoxemia and poor prognosis 05/22/2020 Patient was intubated last night because of persistent hypoxemia Objective - Constitutional Vitals: Vital Signs - 12hr 06/08/20 06/08/20 06/08/20 07:00 08:00 08:50 Temperature 99.0 F Pulse Rate 100 H 122 H 110 H Pulse Rate [ 122 H From Monitor] Respiratory 23 30 H Rate Blood Pressure 100/61 128/92 103/55 O2 Sat by Pulse 93 82 L 94 Oximetry 06/08/20 06/08/20 06/08/20 09:00 10:01 11:01 Temperature Pulse Rate 113 H 90 76 Pulse Rate [ From Monitor] Respiratory 24 20 20 Rate Blood Pressure 127/73 79/49 108/63 O2 Sat by Pulse 78 L 99 100 Oximetry 06/08/20 06/08/20 06/08/20 12:00 13:00 13:11 Temperature 98.3 F Pulse Rate 69 77 78 Pulse Rate [ 69 From Monitor] Respiratory 20 20 Rate Blood Pressure 103/66 108/63 108/71 O2 Sat by Pulse 99 97 99 Oximetry 06/08/20 06/08/20 06/08/20 14:00 15:00 16:00 Temperature 98.2 F Pulse Rate 84 96 H 103 H Pulse Rate [ 97 H From Monitor] Respiratory 21 26 H 27 H Rate Blood Pressure 108/60 123/65 126/68 O2 Sat by Pulse 96 95 96 Oximetry 06/08/20 06/08/20 06/08/20 17:00 17:50 18:00 Temperature Pulse Rate 113 H 97 H 97 H Pulse Rate [ From Monitor] Respiratory 24 28 H Rate Blood Pressure 118/74 107/67 107/67 O2 Sat by Pulse 94 93 91 Oximetry General appearance: Present: no acute distress, well-nourished - EENT Eyes: PERRL, EOM intact ENT: hearing intact, clear oral mucosa Ears: bilateral: normal - Neck Neck: supple, normal ROM - Respiratory Respiratory effort: normal Respiratory: bilateral: CTA - Breasts Breasts: normal - Cardiovascular Rhythm: regular Heart Sounds: Present: S1 & S2. Absent: gallop, rub Extremities: pulses intact, No edema, normal color, Full ROM - Gastrointestinal General gastrointestinal: Present: soft, non-tender, non-distended, normal bowel sounds - Genitourinary Male genitourinary: normal - Integumentary Integumentary: clear, warm, dry - Musculoskeletal Musculoskeletal: 1, strength equal bilaterally - Neurologic Neurologic: moves all extremities - Psychiatric Psychiatric: memory intact, appropriate mood/affect, intact judgment & insight - Labs CBC & Chem 7: 06/07/20 14:58 06/07/20 14:58 Labs: Abnormal lab results 06/07/20 06/08/20 06/08/20 Range/Units 23:18 05:31 12:07 POC Glucose 214 H 129 H 179 H (70-105) mg/dL 06/08/20 Range/Units 18:18 POC Glucose 172 H (70-105) mg/dL
[2020-06-08] MEDS: POLYETHYLENE GLYCOL 3350 17 GM POWDER PO SCH (22:16)
[2020-06-09] MEDS: PROPOFOL 500 MG/50 ML IV SCH ×13 (00:47→23:09)
[2020-06-09] MEDS: LORazepam 2 MG/ML VIAL IV PRN ×2 (04:22→07:47)
[2020-06-09] MEDS: methylPREDNISolone Sod Succinate 40 MG/1 ML INJ IV SCH ×2 (06:29→18:00)
[2020-06-09] MEDS: INSULIN LISPRO 100 UNIT/ML VIAL 3 mL SUB-Q SCH ×3 (06:29→18:00)
[2020-06-09] MEDS: MIDAZOLAM 2 MG/2 ML INJ IV PRN (07:47)
[2020-06-09] MEDS: NORepinephrine/NS 4 MG-250 ML 4 MG/250 ML BAG IV SCH ×5 (07:47→23:12)
[2020-06-09 08:14] LABS: Hematocrit 33.4 % (35.5-45.6); Hemoglobin 11.1 gm/dl (11.8-15.2); Mean Corpuscular HGB Conc 33 % (32-34); Mean Corpuscular Volume 102 fl (84-94); Platelet Count 221 K/mm3 (140-440); Red Blood Count 3.26 M/mm3 (3.65-5.03); Red Cell Distribution Width 15.1 % (13.2-15.2)
[2020-06-09 08:36] LABS: Blood Urea Nitrogen 21 mg/dL (9-20); Hemolysis Index 11
[2020-06-09 08:39] LABS: BUN/Creatinine Ratio 35
[2020-06-09] MEDS: FAMOTIDINE 20 MG TAB PO SCH ×2 (09:20→22:08)
[2020-06-09] MEDS: POTASSIUM CHLORIDE 20 MEQ PACKET FEEDTUBE SCH ×2 (09:21→13:22)
[2020-06-09] MEDS: SENNOSIDES 8.6 MG TAB PO SCH ×2 (09:21→22:08)
[2020-06-09] MEDS: DOCUSATE SODIUM 100 MG/10 ML ORAL LIQD PO SCH ×2 (09:21→22:07)
[2020-06-09] MEDS: FOLIC ACID 1 MG TAB PO SCH (09:21)
[2020-06-09] MEDS: QUEtiapine 100 MG TAB PO SCH ×2 (09:22→22:08)
[2020-06-09] MEDS: ENOXAPARIN 120 MG/0.8 ML INJ SUB-Q SCH ×2 (09:22→23:00)
[2020-06-09] MEDS: ACETAMINOPHEN 325 MG TAB PO PRN (13:22)
[2020-06-09] MEDS: fentaNYL DRIP Premix 2,000 MCG/100 ML BAG IV SCH ×2 (14:04→20:45)
--- NOTE | 2020-06-09 14:08 | Progress Note ---
Assessment and Plan Acute hypoxemic respiratory failure due to COVID-19 Severe Sepsis Bilateral pneumonia Acute kidney injury (SEN) with acute tubular necrosis (ATN) Alcohol dependence Elevated liver function tests - stat CXR to evaluate for aspiration / barotrauma - increased peep to 14 meanwhile (no clinical barotrauma) - Reglan 5mg IV q6h for GFI motility issues - resume trickle feeding after 4-6 hours - repeat KUB and address - replaced potassium - get magnesium level and address - continue to wean Levophed for target MAP > 65 mmHg - continue to wean supplemental oxygen for target O2 sat's > 92% acutely - prn lab work and address electrolytes - ETT day # 19; he will need a tracheostomy once numbers better - continue care as below otherwise; - continue Daily SAT and SBT assessment as tolerated - VAP bundle addressed - continue lung protective strategies - continue bronchodilators with pulmonary hygiene per RT - wean per pulmonary driven protocols otherwise - accuchecks with glycemic control per SSI (While critically ill target blood glucose of 140-180 mg/dL; avoid hypoglycemia) - sedation prn for target RASS -1 to -2 - continue enteral nutritional support at goal rate as tolerated - continue airborne and contact isolation - follow repeat COVID-19 testing - continue Zinc & Vit C supplementaion - continue systemic steroids for Asthma / severe COVID infection - Prone positioning as tolerated - continue empiric full dose anticoagulation re: elevated d-dimers / hypercoagulable state - NOT a candidate for COVID convalescent plasma - continue systemic steroids X >/= 10 days - complete remdesivir dosing (total 5 days) - Monitor liver function test on Remdesivir - trend inflammatory markers - ferritin, Ddimer, CRP, LDH; to aid clinical decision making - empiric AB's coverage per ID rec's otherwise - accuchecks with glycemic control per SSI (While critically ill target blood glucose of 140-180 mg/dL; avoid hypoglycemia) - avoid nephrotoxins, renally dose all medications - continue to avoid benzodiazepine's, reduce the possibility of delirium - prn analgesia per CPOT score - Maintenance of sleep-wake cycle, avoid delirium - continue to avoid benzodiazepine's, reduce the possibility of delirium - aspiration precautions - G.I. & VTE prophylaxis - PT/OT/ROM exercises - continue mobility protocols for pressure ulcer prophylaxis - Monitor hemodynamics closely - continue other care per attending / other consultants - discharge planning ongoing concurrently .... Re-evaluate in am & prn CONDITION: CRITICAL PROGNOSIS: GUARDED CODE STATUS: FULL CODE The high probability of a clinically significant, sudden or life-threatening deterioration of the [respiratory, cardiovascular, hematologic & neurologic] system(s) required my full and direct attention, intervention and personal management. The aggregate critical care time was [37] minutes without overlap. Time includes spent on; [x] Data Review and interpretation [x] Patient assessment and monitoring of vital signs [x] Documentation [x] Medication orders and management Subjective Date of service: 06/09/20 Principal diagnosis: Ac hypoxemic resp failure; COVID-19; Severe Sepsis; Shaggy PNA; Alcohol Abuse Interval history: Patient is seen today for: Acute hypoxemic respiratory failure due to COVID-19; Severe Sepsis; Bilateral pneumonia; Alcohol dependence; Elevated liver function tests Seen and examined at bedside; 24hour events reviewed; nursing and respiratory care staff consulted; no adverse overnight events reported to me; resting in bed; remains on MVS; FiO2 up to 65% with peep at 12; s/p emesis X 2 yesterday and tube feeds on hold; work of breathing increased; + low grade fevers Objective Vital Signs - 12hr 06/09/20 06/09/20 06/09/20 03:00 04:00 05:00 Temperature 99.1 F Pulse Rate 85 104 H 111 H Pulse Rate [ 78 From Monitor] Respiratory 23 22 31 H Rate Blood Pressure 97/59 114/76 95/64 O2 Sat by Pulse 98 98 82 L Oximetry 06/09/20 06/09/20 06/09/20 06:00 06:23 07:00 Temperature Pulse Rate 102 H 90 89 Pulse Rate [ From Monitor] Respiratory 32 H 22 Rate Blood Pressure 99/68 91/59 91/58 O2 Sat by Pulse 89 94 92 Oximetry 06/09/20 06/09/20 06/09/20 08:00 09:00 09:27 Temperature 98.7 F Pulse Rate 122 H 115 H 115 H Pulse Rate [ 124 H From Monitor] Respiratory 33 H 34 H Rate Blood Pressure 107/41 94/52 86/52 O2 Sat by Pulse 97 83 L 89 Oximetry 06/09/20 06/09/20 10:00 11:00 Temperature Pulse Rate 142 H 133 H Pulse Rate [ From Monitor] Respiratory 29 H 31 H Rate Blood Pressure 101/53 93/51 O2 Sat by Pulse 92 87 Oximetry Constitutional: asleep, appears uncomfortable, other (middle aged obese male with moderately increased respiratory effort at rest on MVS) Eyes: non-icteric ENT: oropharynx moist, other (ETT 24 cm CHILO) Neck: supple, no JVD Effort: mildly labored Ascultation: Bilateral: diminished breath sounds, rhonchi Percussion: Bilateral: not dull Cardiovascular: regular rate and rhythm Gastrointestinal: normoactive bowel sounds, soft, non-tender, non-distended (protuberant) Integumentary: normal Extremities: no cyanosis, no edema, pulses normal, no ischemia or petechiae Neurologic: non-focal exam, pupils equal and round, CN II-XII normal, motor strength normal and, other (sedated) Psychiatric: other (sedated) CBC and BMP: 06/09/20 07:55 06/09/20 07:55 ABG, PT/INR, D-dimer: ABG ABG pH 7.466 (7.320-7.450) H 06/09/20 06:20 POC ABG pCO2 50.7 mmHg (32.0-48.0) H 06/09/20 06:20 ABG pCO2 69.6 mm Hg 06/05/20 12:35 POC ABG pO2 53.0 mmHg (83-108) L 06/09/20 06:20 ABG pO2 127.9 mm Hg (80.0-90.0) H 06/05/20 12:35 POC ABG HCO3 35.7 06/09/20 06:20 ABG O2 Saturation 98.3 % (95.0-99.0) 06/05/20 12:35 PT/INR, D-dimer D-Dimer 1887.82 ng/mlDDU (0-234) H 05/20/20 08:16 Abnormal lab findings: Abnormal Labs 05/09/20 05/09/20 05/09/20 12:59 12:59 12:59 WBC 11.8 H RBC Hgb Hct MCV 96 H MCH 34 H MCHC 35 H RDW Lymph % (Auto) 6.9 L Lymph # (Auto) 0.8 L Seg Neutrophils % 87.5 H Seg Neuts % (Manual) Lymphocytes % (Manual) Nucleated RBC % Seg Neutrophils # 10.3 H Seg Neutrophils # Man Lymphocytes # (Manual) D-Dimer ABG pH POC ABG pCO2 POC ABG pO2 ABG pO2 ABG HCO3 ABG O2 Saturation ABG Base Excess ABG Hemoglobin ABG Oxyhemoglobin ABG Sodium ABG Potassium ABG Chloride ABG Glucose Oxyhemoglobin Sodium 130 L Potassium 3.5 L Chloride 86.4 L Carbon Dioxide BUN 33 H Creatinine 2.3 H Glucose 156 H POC Glucose Lactic Acid Calcium Magnesium Ferritin Total Bilirubin 3.40 H Direct Bilirubin 1.7 H AST 385 H ALT 134 H Alkaline Phosphatase Lactate Dehydrogenase C-Reactive Protein Total Protein Albumin 3.0 L Triglycerides Arterial Blood Glucose Arterial Blood Ionized Calcium Urine WBC (Auto) Coronavirus (PCR) SARS-CoV-2 IgG Ab 05/09/20 05/09/20 05/09/20 12:59 12:59 12:59 WBC RBC Hgb Hct MCV MCH MCHC RDW Lymph % (Auto) Lymph # (Auto) Seg Neutrophils % Seg Neuts % (Manual) Lymphocytes % (Manual) Nucleated RBC % Seg Neutrophils # Seg Neutrophils # Man Lymphocytes # (Manual) D-Dimer 3242.51 H ABG pH POC ABG pCO2 POC ABG pO2 ABG pO2 ABG HCO3 ABG O2 Saturation ABG Base Excess ABG Hemoglobin ABG Oxyhemoglobin ABG Sodium ABG Potassium ABG Chloride ABG Glucose Oxyhemoglobin Sodium Potassium Chloride Carbon Dioxide BUN Creatinine Glucose 158 H POC Glucose Lactic Acid 3.50 H* Calcium Magnesium Ferritin Total Bilirubin Direct Bilirubin AST ALT Alkaline Phosphatase Lactate Dehydrogenase 2166 H C-Reactive Protein 39.00 H Total Protein Albumin Triglycerides Arterial Blood Glucose Arterial Blood Ionized Calcium Urine WBC (Auto) Coronavirus (PCR) SARS-CoV-2 IgG Ab 05/09/20 05/09/20 05/09/20 12:59 14:20 14:20 WBC RBC Hgb Hct MCV MCH MCHC RDW Lymph % (Auto) Lymph # (Auto) Seg Neutrophils % Seg Neuts % (Manual) Lymphocytes % (Manual) Nucleated RBC % Seg Neutrophils # Seg Neutrophils # Man Lymphocytes # (Manual) D-Dimer 2861.78 H ABG pH POC ABG pCO2 POC ABG pO2 ABG pO2 ABG HCO3 ABG O2 Saturation ABG Base Excess ABG Hemoglobin ABG Oxyhemoglobin ABG Sodium ABG Potassium ABG Chloride ABG Glucose Oxyhemoglobin Sodium Potassium Chloride Carbon Dioxide BUN Creatinine Glucose POC Glucose Lactic Acid 2.20 H* Calcium Magnesium Ferritin 34150.0 H Total Bilirubin Direct Bilirubin AST ALT Alkaline Phosphatase Lactate Dehydrogenase C-Reactive Protein Total Protein Albumin Triglycerides Arterial Blood Glucose Arterial Blood Ionized Calcium Urine WBC (Auto) Coronavirus (PCR) SARS-CoV-2 IgG Ab 05/09/20 05/09/20 05/09/20 14:20 14:20 15:56 WBC RBC Hgb Hct MCV MCH MCHC RDW Lymph % (Auto) Lymph # (Auto) Seg Neutrophils % Seg Neuts % (Manual) Lymphocytes % (Manual) Nucleated RBC % Seg Neutrophils # Seg Neutrophils # Man Lymphocytes # (Manual) D-Dimer ABG pH POC ABG pCO2 POC ABG pO2 57.3 L ABG pO2 ABG HCO3 ABG O2 Saturation ABG Base Excess ABG Hemoglobin ABG Oxyhemoglobin 86.3 L ABG Sodium 129.9 L ABG Potassium ABG Chloride ABG Glucose 146 H Oxyhemoglobin Sodium Potassium Chloride Carbon Dioxide BUN Creatinine Glucose 143 H POC Glucose Lactic Acid Calcium Magnesium Ferritin 60139.0 H Total Bilirubin Direct Bilirubin AST ALT Alkaline Phosphatase Lactate Dehydrogenase 1953 H C-Reactive Protein 33.50 H Total Protein Albumin Triglycerides Arterial Blood Glucose 146 H Arterial Blood Ionized Calcium 3.9 L Urine WBC (Auto) Coronavirus (PCR) SARS-CoV-2 IgG Ab 05/10/20 05/10/20 05/10/20 10:32 10:32 18:50 WBC 15.4 H RBC Hgb Hct MCV 97 H MCH 33 H MCHC RDW 13.1 L Lymph % (Auto) Lymph # (Auto) Seg Neutrophils % Seg Neuts % (Manual) 89.0 H Lymphocytes % (Manual) 8.0 L Nucleated RBC % Seg Neutrophils # Seg Neutrophils # Man 13.7 H Lymphocytes # (Manual) D-Dimer ABG pH POC ABG pCO2 POC ABG pO2 ABG pO2 ABG HCO3 ABG O2 Saturation ABG Base Excess ABG Hemoglobin ABG Oxyhemoglobin ABG Sodium ABG Potassium ABG Chloride ABG Glucose Oxyhemoglobin Sodium 136 L Potassium Chloride 97.4 L Carbon Dioxide BUN 37 H Creatinine 1.7 H Glucose 209 H POC Glucose Lactic Acid Calcium Magnesium Ferritin > 2000.0 H Total Bilirubin Direct Bilirubin AST ALT Alkaline Phosphatase Lactate Dehydrogenase C-Reactive Protein Total Protein Albumin Triglycerides Arterial Blood Glucose Arterial Blood Ionized Calcium Urine WBC (Auto) Coronavirus (PCR) SARS-CoV-2 IgG Ab 05/10/20 05/10/20 05/10/20 18:50 19:00 Unknown WBC RBC Hgb Hct MCV MCH MCHC RDW Lymph % (Auto) Lymph # (Auto) Seg Neutrophils % Seg Neuts % (Manual) Lymphocytes % (Manual) Nucleated RBC % Seg Neutrophils # Seg Neutrophils # Man Lymphocytes # (Manual) D-Dimer > 59795 H ABG pH POC ABG pCO2 POC ABG pO2 ABG pO2 ABG HCO3 ABG O2 Saturation ABG Base Excess ABG Hemoglobin ABG Oxyhemoglobin ABG Sodium ABG Potassium ABG Chloride ABG Glucose Oxyhemoglobin Sodium Potassium Chloride Carbon Dioxide BUN Creatinine Glucose POC Glucose Lactic Acid Calcium Magnesium Ferritin Total Bilirubin Direct Bilirubin AST ALT Alkaline Phosphatase Lactate Dehydrogenase 1879 H C-Reactive Protein 24.80 H Total Protein Albumin Triglycerides Arterial Blood Glucose Arterial Blood Ionized Calcium Urine WBC (Auto) 11.0 H Coronavirus (PCR) SARS-CoV-2 IgG Ab 05/10/20 05/11/20 05/11/20 Unknown 07:30 07:30 WBC RBC Hgb Hct MCV MCH MCHC RDW Lymph % (Auto) Lymph # (Auto) Seg Neutrophils % Seg Neuts % (Manual) Lymphocytes % (Manual) Nucleated RBC % Seg Neutrophils # Seg Neutrophils # Man Lymphocytes # (Manual) D-Dimer > 2000 H ABG pH POC ABG pCO2 POC ABG pO2 ABG pO2 ABG HCO3 ABG O2 Saturation ABG Base Excess ABG Hemoglobin ABG Oxyhemoglobin ABG Sodium ABG Potassium ABG Chloride ABG Glucose Oxyhemoglobin Sodium Potassium Chloride 96.3 L Carbon Dioxide BUN 36 H Creatinine Glucose 161 H POC Glucose Lactic Acid Calcium 8.3 L Magnesium Ferritin Total Bilirubin 1.50 H Direct Bilirubin 0.6 H AST 178 H ALT 111 H Alkaline Phosphatase Lactate Dehydrogenase C-Reactive Protein Total Protein Albumin 3.0 L Triglycerides Arterial Blood Glucose Arterial Blood Ionized Calcium Urine WBC (Auto) Coronavirus (PCR) Positive A SARS-CoV-2 IgG Ab 05/11/20 05/11/20 05/11/20 07:30 07:30 07:30 WBC RBC Hgb Hct MCV MCH MCHC RDW Lymph % (Auto) Lymph # (Auto) Seg Neutrophils % Seg Neuts % (Manual) Lymphocytes % (Manual) Nucleated RBC % Seg Neutrophils # Seg Neutrophils # Man Lymphocytes # (Manual) D-Dimer ABG pH POC ABG pCO2 POC ABG pO2 ABG pO2 ABG HCO3 ABG O2 Saturation ABG Base Excess ABG Hemoglobin ABG Oxyhemoglobin ABG Sodium ABG Potassium ABG Chloride ABG Glucose Oxyhemoglobin Sodium Potassium Chloride Carbon Dioxide BUN Creatinine Glucose POC Glucose Lactic Acid Calcium Magnesium Ferritin 48404.0 H Total Bilirubin Direct Bilirubin AST ALT Alkaline Phosphatase Lactate Dehydrogenase 1523 H C-Reactive Protein 12.90 H Total Protein Albumin Triglycerides Arterial Blood Glucose Arterial Blood Ionized Calcium Urine WBC (Auto) Coronavirus (PCR) SARS-CoV-2 IgG Ab Reactive A 05/13/20 05/13/20 05/15/20 05:20 05:20 08:15 WBC RBC Hgb Hct MCV MCH MCHC RDW Lymph % (Auto) Lymph # (Auto) Seg Neutrophils % Seg Neuts % (Manual) Lymphocytes % (Manual) Nucleated RBC % Seg Neutrophils # Seg Neutrophils # Man Lymphocytes # (Manual) D-Dimer > 35153 H 5318.28 H ABG pH POC ABG pCO2 POC ABG pO2 ABG pO2 ABG HCO3 ABG O2 Saturation ABG Base Excess ABG Hemoglobin ABG Oxyhemoglobin ABG Sodium ABG Potassium ABG Chloride ABG Glucose Oxyhemoglobin Sodium Potassium Chloride Carbon Dioxide 32 H BUN 30 H Creatinine Glucose 156 H POC Glucose Lactic Acid Calcium Magnesium 2.60 H Ferritin Total Bilirubin 1.40 H Direct Bilirubin AST 121 H ALT 119 H Alkaline Phosphatase Lactate Dehydrogenase 957 H C-Reactive Protein 4.00 H Total Protein Albumin 3.0 L Triglycerides Arterial Blood Glucose Arterial Blood Ionized Calcium Urine WBC (Auto) Coronavirus (PCR) SARS-CoV-2 IgG Ab 05/15/20 05/15/20 05/15/20 08:15 08:15 08:15 WBC 12.4 H RBC Hgb Hct MCV 98 H MCH 33 H MCHC RDW Lymph % (Auto) 9.7 L Lymph # (Auto) Seg Neutrophils % 86.8 H Seg Neuts % (Manual) Lymphocytes % (Manual) Nucleated RBC % Seg Neutrophils # 10.8 H Seg Neutrophils # Man Lymphocytes # (Manual) D-Dimer ABG pH POC ABG pCO2 POC ABG pO2 ABG pO2 ABG HCO3 ABG O2 Saturation ABG Base Excess ABG Hemoglobin ABG Oxyhemoglobin ABG Sodium ABG Potassium ABG Chloride ABG Glucose Oxyhemoglobin Sodium Potassium Chloride 94.8 L Carbon Dioxide 32 H BUN 22 H Creatinine Glucose 115 H POC Glucose Lactic Acid Calcium 8.3 L Magnesium Ferritin 2494.0 H Total Bilirubin Direct Bilirubin AST 73 H ALT 121 H Alkaline Phosphatase Lactate Dehydrogenase 835 H C-Reactive Protein 3.40 H Total Protein 6.1 L Albumin 3.0 L Triglycerides Arterial Blood Glucose Arterial Blood Ionized Calcium Urine WBC (Auto) Coronavirus (PCR) SARS-CoV-2 IgG Ab 05/17/20 05/17/20 05/17/20 05:50 05:50 05:50 WBC RBC Hgb Hct MCV MCH MCHC RDW Lymph % (Auto) Lymph # (Auto) Seg Neutrophils % Seg Neuts % (Manual) Lymphocytes % (Manual) Nucleated RBC % Seg Neutrophils # Seg Neutrophils # Man Lymphocytes # (Manual) D-Dimer 2911.42 H ABG pH POC ABG pCO2 POC ABG pO2 ABG pO2 ABG HCO3 ABG O2 Saturation ABG Base Excess ABG Hemoglobin ABG Oxyhemoglobin ABG Sodium ABG Potassium ABG Chloride ABG Glucose Oxyhemoglobin Sodium 136 L Potassium Chloride 96.0 L Carbon Dioxide 34 H BUN 22 H Creatinine Glucose 140 H POC Glucose Lactic Acid Calcium Magnesium Ferritin 2082.0 H Total Bilirubin Direct Bilirubin AST ALT 75 H Alkaline Phosphatase Lactate Dehydrogenase 601 H C-Reactive Protein 2.70 H Total Protein Albumin 2.9 L Triglycerides Arterial Blood Glucose Arterial Blood Ionized Calcium Urine WBC (Auto) Coronavirus (PCR) SARS-CoV-2 IgG Ab 05/17/20 05/18/20 05/20/20 05:50 12:22 08:16 WBC RBC Hgb Hct MCV 98 H MCH 33 H MCHC RDW Lymph % (Auto) 8.0 L Lymph # (Auto) 0.8 L Seg Neutrophils % 89.3 H Seg Neuts % (Manual) Lymphocytes % (Manual) Nucleated RBC % Seg Neutrophils # 8.8 H Seg Neutrophils # Man Lymphocytes # (Manual) D-Dimer 1887.82 H ABG pH POC ABG pCO2 POC ABG pO2 ABG pO2 ABG HCO3 ABG O2 Saturation ABG Base Excess ABG Hemoglobin ABG Oxyhemoglobin ABG Sodium ABG Potassium ABG Chloride ABG Glucose Oxyhemoglobin Sodium Potassium Chloride Carbon Dioxide BUN Creatinine Glucose POC Glucose 178 H Lactic Acid Calcium Magnesium Ferritin Total Bilirubin Direct Bilirubin AST ALT Alkaline Phosphatase Lactate Dehydrogenase C-Reactive Protein Total Protein Albumin Triglycerides Arterial Blood Glucose Arterial Blood Ionized Calcium Urine WBC (Auto) Coronavirus (PCR) SARS-CoV-2 IgG Ab 05/20/20 05/20/20 05/21/20 08:16 08:16 21:10 WBC RBC Hgb Hct MCV MCH MCHC RDW Lymph % (Auto) Lymph # (Auto) Seg Neutrophils % Seg Neuts % (Manual) Lymphocytes % (Manual) Nucleated RBC % Seg Neutrophils # Seg Neutrophils # Man Lymphocytes # (Manual) D-Dimer ABG pH 7.483 H POC ABG pCO2 POC ABG pO2 ABG pO2 50.0 L ABG HCO3 27.0 H ABG O2 Saturation 86.2 L ABG Base Excess 3.7 H ABG Hemoglobin ABG Oxyhemoglobin ABG Sodium ABG Potassium ABG Chloride ABG Glucose Oxyhemoglobin 84.2 L Sodium Potassium Chloride Carbon Dioxide BUN Creatinine Glucose POC Glucose Lactic Acid Calcium Magnesium Ferritin 1960.0 H Total Bilirubin Direct Bilirubin AST ALT Alkaline Phosphatase Lactate Dehydrogenase 705 H C-Reactive Protein 3.10 H Total Protein Albumin Triglycerides Arterial Blood Glucose Arterial Blood Ionized Calcium Urine WBC (Auto) Coronavirus (PCR) SARS-CoV-2 IgG Ab 05/22/20 05/22/20 05/22/20 04:01 07:53 07:53 WBC 19.2 H RBC Hgb Hct MCV 98 H MCH 34 H MCHC RDW Lymph % (Auto) Lymph # (Auto) Seg Neutrophils % Seg Neuts % (Manual) 96.0 H Lymphocytes % (Manual) 1.0 L Nucleated RBC % Seg Neutrophils # Seg Neutrophils # Man 18.4 H Lymphocytes # (Manual) 0.2 L D-Dimer ABG pH POC ABG pCO2 53.8 H POC ABG pO2 125.5 H ABG pO2 ABG HCO3 ABG O2 Saturation ABG Base Excess ABG Hemoglobin ABG Oxyhemoglobin ABG Sodium 131.8 L ABG Potassium 4.8 H ABG Chloride 94.0 L ABG Glucose 163 H Oxyhemoglobin Sodium 131 L Potassium Chloride 93.4 L Carbon Dioxide BUN 40 H Creatinine Glucose 176 H POC Glucose Lactic Acid Calcium Magnesium 2.70 H Ferritin Total Bilirubin 1.80 H Direct Bilirubin AST 45 H ALT 116 H Alkaline Phosphatase 181 H Lactate Dehydrogenase C-Reactive Protein Total Protein Albumin 2.6 L Triglycerides Arterial Blood Glucose 163 H Arterial Blood Ionized Calcium 4.5 L Urine WBC (Auto) Coronavirus (PCR) SARS-CoV-2 IgG Ab 05/23/20 05/24/20 05/24/20 04:17 03:07 04:08 WBC RBC Hgb Hct MCV MCH MCHC RDW Lymph % (Auto) Lymph # (Auto) Seg Neutrophils % Seg Neuts % (Manual) Lymphocytes % (Manual) Nucleated RBC % Seg Neutrophils # Seg Neutrophils # Man Lymphocytes # (Manual) D-Dimer ABG pH 7.328 L POC ABG pCO2 POC ABG pO2 ABG pO2 72.8 L 73.4 L ABG HCO3 31.0 H 34.0 H ABG O2 Saturation 93.5 L ABG Base Excess 3.5 H 7.7 H ABG Hemoglobin 13.3 L 12.1 L ABG Oxyhemoglobin ABG Sodium ABG Potassium ABG Chloride ABG Glucose Oxyhemoglobin 91.5 L 94.3 L Sodium Potassium Chloride Carbon Dioxide BUN Creatinine Glucose POC Glucose 155 H Lactic Acid Calcium Magnesium Ferritin Total Bilirubin Direct Bilirubin AST ALT Alkaline Phosphatase Lactate Dehydrogenase C-Reactive Protein Total Protein Albumin Triglycerides Arterial Blood Glucose Arterial Blood Ionized Calcium Urine WBC (Auto) Coronavirus (PCR) SARS-CoV-2 IgG Ab 05/24/20 05/24/20 05/24/20 09:33 12:21 17:52 WBC RBC Hgb Hct MCV MCH MCHC RDW Lymph % (Auto) Lymph # (Auto) Seg Neutrophils % Seg Neuts % (Manual) Lymphocytes % (Manual) Nucleated RBC % Seg Neutrophils # Seg Neutrophils # Man Lymphocytes # (Manual) D-Dimer ABG pH POC ABG pCO2 POC ABG pO2 ABG pO2 ABG HCO3 ABG O2 Saturation ABG Base Excess ABG Hemoglobin ABG Oxyhemoglobin ABG Sodium ABG Potassium ABG Chloride ABG Glucose Oxyhemoglobin Sodium Potassium Chloride Carbon Dioxide 34 H D BUN 28 H Creatinine 0.7 L Glucose 168 H POC Glucose 173 H 164 H Lactic Acid Calcium Magnesium Ferritin Total Bilirubin Direct Bilirubin AST ALT Alkaline Phosphatase Lactate Dehydrogenase C-Reactive Protein Total Protein Albumin Triglycerides Arterial Blood Glucose Arterial Blood Ionized Calcium Urine WBC (Auto) Coronavirus (PCR) SARS-CoV-2 IgG Ab 05/24/20 05/25/20 05/25/20 23:47 04:29 05:46 WBC RBC Hgb Hct MCV MCH MCHC RDW Lymph % (Auto) Lymph # (Auto) Seg Neutrophils % Seg Neuts % (Manual) Lymphocytes % (Manual) Nucleated RBC % Seg Neutrophils # Seg Neutrophils # Man Lymphocytes # (Manual) D-Dimer ABG pH POC ABG pCO2 68.6 H POC ABG pO2 ABG pO2 ABG HCO3 ABG O2 Saturation ABG Base Excess ABG Hemoglobin ABG Oxyhemoglobin ABG Sodium ABG Potassium 4.7 H ABG Chloride ABG Glucose 226 H Oxyhemoglobin Sodium Potassium Chloride Carbon Dioxide BUN Creatinine Glucose POC Glucose 171 H 201 H Lactic Acid Calcium Magnesium Ferritin Total Bilirubin Direct Bilirubin AST ALT Alkaline Phosphatase Lactate Dehydrogenase C-Reactive Protein Total Protein Albumin Triglycerides Arterial Blood Glucose 226 H Arterial Blood Ionized Calcium Urine WBC (Auto) Coronavirus (PCR) SARS-CoV-2 IgG Ab 05/25/20 05/25/20 05/25/20 08:37 08:37 12:38 WBC 12.0 H RBC 3.64 L Hgb Hct MCV 99 H MCH 33 H MCHC RDW Lymph % (Auto) Lymph # (Auto) Seg Neutrophils % Seg Neuts % (Manual) Lymphocytes % (Manual) Nucleated RBC % Seg Neutrophils # Seg Neutrophils # Man Lymphocytes # (Manual) D-Dimer ABG pH POC ABG pCO2 POC ABG pO2 ABG pO2 ABG HCO3 ABG O2 Saturation ABG Base Excess ABG Hemoglobin ABG Oxyhemoglobin ABG Sodium ABG Potassium ABG Chloride ABG Glucose Oxyhemoglobin Sodium Potassium Chloride 97.3 L Carbon Dioxide 35 H BUN 25 H Creatinine 0.7 L Glucose 191 H POC Glucose 182 H Lactic Acid Calcium Magnesium Ferritin Total Bilirubin Direct Bilirubin AST ALT Alkaline Phosphatase Lactate Dehydrogenase C-Reactive Protein Total Protein Albumin Triglycerides Arterial Blood Glucose Arterial Blood Ionized Calcium Urine WBC (Auto) Coronavirus (PCR) SARS-CoV-2 IgG Ab 05/25/20 05/26/20 05/26/20 18:16 00:06 04:50 WBC RBC Hgb Hct MCV MCH MCHC RDW Lymph % (Auto) Lymph # (Auto) Seg Neutrophils % Seg Neuts % (Manual) Lymphocytes % (Manual) Nucleated RBC % Seg Neutrophils # Seg Neutrophils # Man Lymphocytes # (Manual) D-Dimer ABG pH POC ABG pCO2 POC ABG pO2 ABG pO2 221.5 H ABG HCO3 40.4 H ABG O2 Saturation 99.3 H ABG Base Excess 12.8 H ABG Hemoglobin 10.4 L ABG Oxyhemoglobin ABG Sodium ABG Potassium ABG Chloride ABG Glucose Oxyhemoglobin Sodium Potassium Chloride Carbon Dioxide BUN Creatinine Glucose POC Glucose 176 H 152 H Lactic Acid Calcium Magnesium Ferritin Total Bilirubin Direct Bilirubin AST ALT Alkaline Phosphatase Lactate Dehydrogenase C-Reactive Protein Total Protein Albumin Triglycerides Arterial Blood Glucose Arterial Blood Ionized Calcium Urine WBC (Auto) Coronavirus (PCR) SARS-CoV-2 IgG Ab 05/26/20 05/26/20 05/26/20 06:11 07:51 07:51 WBC 13.4 H RBC 3.64 L Hgb Hct MCV 98 H MCH 33 H MCHC RDW Lymph % (Auto) Lymph # (Auto) Seg Neutrophils % Seg Neuts % (Manual) Lymphocytes % (Manual) Nucleated RBC % Seg Neutrophils # Seg Neutrophils # Man Lymphocytes # (Manual) D-Dimer ABG pH POC ABG pCO2 POC ABG pO2 ABG pO2 ABG HCO3 ABG O2 Saturation ABG Base Excess ABG Hemoglobin ABG Oxyhemoglobin ABG Sodium ABG Potassium ABG Chloride ABG Glucose Oxyhemoglobin Sodium Potassium Chloride 96.6 L Carbon Dioxide 39 H BUN 29 H Creatinine 0.7 L Glucose 174 H POC Glucose 165 H Lactic Acid Calcium Magnesium Ferritin Total Bilirubin Direct Bilirubin AST ALT Alkaline Phosphatase Lactate Dehydrogenase C-Reactive Protein Total Protein Albumin Triglycerides Arterial Blood Glucose Arterial Blood Ionized Calcium Urine WBC (Auto) Coronavirus (PCR) SARS-CoV-2 IgG Ab 05/26/20 05/27/20 05/27/20 23:23 03:43 05:29 WBC RBC Hgb Hct MCV MCH MCHC RDW Lymph % (Auto) Lymph # (Auto) Seg Neutrophils % Seg Neuts % (Manual) Lymphocytes % (Manual) Nucleated RBC % Seg Neutrophils # Seg Neutrophils # Man Lymphocytes # (Manual) D-Dimer ABG pH 7.480 H POC ABG pCO2 52.4 H POC ABG pO2 61.4 L ABG pO2 ABG HCO3 ABG O2 Saturation ABG Base Excess ABG Hemoglobin ABG Oxyhemoglobin ABG Sodium 134.9 L ABG Potassium ABG Chloride 95.0 L ABG Glucose 221 H Oxyhemoglobin Sodium Potassium Chloride Carbon Dioxide BUN Creatinine Glucose POC Glucose 169 H 227 H Lactic Acid Calcium Magnesium Ferritin Total Bilirubin Direct Bilirubin AST ALT Alkaline Phosphatase Lactate Dehydrogenase C-Reactive Protein Total Protein Albumin Triglycerides Arterial Blood Glucose 221 H Arterial Blood Ionized Calcium 4.5 L Urine WBC (Auto) Coronavirus (PCR) SARS-CoV-2 IgG Ab 05/27/20 05/27/20 05/27/20 07:19 12:18 13:50 WBC RBC Hgb Hct MCV MCH MCHC RDW Lymph % (Auto) Lymph # (Auto) Seg Neutrophils % Seg Neuts % (Manual) Lymphocytes % (Manual) Nucleated RBC % Seg Neutrophils # Seg Neutrophils # Man Lymphocytes # (Manual) D-Dimer ABG pH POC ABG pCO2 POC ABG pO2 ABG pO2 ABG HCO3 ABG O2 Saturation ABG Base Excess ABG Hemoglobin ABG Oxyhemoglobin ABG Sodium ABG Potassium ABG Chloride ABG Glucose Oxyhemoglobin Sodium Potassium Chloride Carbon Dioxide BUN Creatinine Glucose POC Glucose 114 H 148 H Lactic Acid Calcium Magnesium Ferritin Total Bilirubin Direct Bilirubin AST ALT Alkaline Phosphatase Lactate Dehydrogenase C-Reactive Protein Total Protein Albumin Triglycerides 247 H Arterial Blood Glucose Arterial Blood Ionized Calcium Urine WBC (Auto) Coronavirus (PCR) SARS-CoV-2 IgG Ab 05/28/20 05/28/20 05/28/20 00:13 04:16 05:22 WBC RBC Hgb Hct MCV MCH MCHC RDW Lymph % (Auto) Lymph # (Auto) Seg Neutrophils % Seg Neuts % (Manual) Lymphocytes % (Manual) Nucleated RBC % Seg Neutrophils # Seg Neutrophils # Man Lymphocytes # (Manual) D-Dimer ABG pH POC ABG pCO2 64.4 H POC ABG pO2 60.5 L ABG pO2 ABG HCO3 ABG O2 Saturation ABG Base Excess ABG Hemoglobin ABG Oxyhemoglobin ABG Sodium ABG Potassium ABG Chloride 95.0 L ABG Glucose 209 H Oxyhemoglobin Sodium Potassium Chloride Carbon Dioxide BUN Creatinine Glucose POC Glucose 155 H 186 H Lactic Acid Calcium Magnesium Ferritin Total Bilirubin Direct Bilirubin AST ALT Alkaline Phosphatase Lactate Dehydrogenase C-Reactive Protein Total Protein Albumin Triglycerides Arterial Blood Glucose 209 H Arterial Blood Ionized Calcium Urine WBC (Auto) Coronavirus (PCR) SARS-CoV-2 IgG Ab 05/28/20 05/28/20 05/29/20 12:45 17:39 00:37 WBC RBC Hgb Hct MCV MCH MCHC RDW Lymph % (Auto) Lymph # (Auto) Seg Neutrophils % Seg Neuts % (Manual) Lymphocytes % (Manual) Nucleated RBC % Seg Neutrophils # Seg Neutrophils # Man Lymphocytes # (Manual) D-Dimer ABG pH POC ABG pCO2 POC ABG pO2 ABG pO2 ABG HCO3 ABG O2 Saturation ABG Base Excess ABG Hemoglobin ABG Oxyhemoglobin ABG Sodium ABG Potassium ABG Chloride ABG Glucose Oxyhemoglobin Sodium Potassium Chloride Carbon Dioxide BUN Creatinine Glucose POC Glucose 143 H 164 H 221 H Lactic Acid Calcium Magnesium Ferritin Total Bilirubin Direct Bilirubin AST ALT Alkaline Phosphatase Lactate Dehydrogenase C-Reactive Protein Total Protein Albumin Triglycerides Arterial Blood Glucose Arterial Blood Ionized Calcium Urine WBC (Auto) Coronavirus (PCR) SARS-CoV-2 IgG Ab 05/29/20 05/29/20 05/29/20 04:15 05:33 12:34 WBC RBC Hgb Hct MCV MCH MCHC RDW Lymph % (Auto) Lymph # (Auto) Seg Neutrophils % Seg Neuts % (Manual) Lymphocytes % (Manual) Nucleated RBC % Seg Neutrophils # Seg Neutrophils # Man Lymphocytes # (Manual) D-Dimer ABG pH 7.463 H POC ABG pCO2 56.3 H POC ABG pO2 81.2 L ABG pO2 ABG HCO3 ABG O2 Saturation ABG Base Excess ABG Hemoglobin ABG Oxyhemoglobin ABG Sodium ABG Potassium ABG Chloride 96.0 L ABG Glucose 194 H Oxyhemoglobin Sodium Potassium Chloride Carbon Dioxide BUN Creatinine Glucose POC Glucose 133 H 221 H Lactic Acid Calcium Magnesium Ferritin Total Bilirubin Direct Bilirubin AST ALT Alkaline Phosphatase Lactate Dehydrogenase C-Reactive Protein Total Protein Albumin Triglycerides Arterial Blood Glucose 194 H Arterial Blood Ionized Calcium 4.5 L Urine WBC (Auto) Coronavirus (PCR) SARS-CoV-2 IgG Ab 05/29/20 05/30/20 05/30/20 18:07 00:12 05:38 WBC RBC Hgb Hct MCV MCH MCHC RDW Lymph % (Auto) Lymph # (Auto) Seg Neutrophils % Seg Neuts % (Manual) Lymphocytes % (Manual) Nucleated RBC % Seg Neutrophils # Seg Neutrophils # Man Lymphocytes # (Manual) D-Dimer ABG pH POC ABG pCO2 POC ABG pO2 ABG pO2 ABG HCO3 ABG O2 Saturation ABG Base Excess ABG Hemoglobin ABG Oxyhemoglobin ABG Sodium ABG Potassium ABG Chloride ABG Glucose Oxyhemoglobin Sodium Potassium Chloride Carbon Dioxide BUN Creatinine Glucose POC Glucose 162 H 190 H 208 H Lactic Acid Calcium Magnesium Ferritin Total Bilirubin Direct Bilirubin AST ALT Alkaline Phosphatase Lactate Dehydrogenase C-Reactive Protein Total Protein Albumin Triglycerides Arterial Blood Glucose Arterial Blood Ionized Calcium Urine WBC (Auto) Coronavirus (PCR) SARS-CoV-2 IgG Ab 05/30/20 05/30/20 05/30/20 09:30 11:35 11:54 WBC 12.4 H RBC 3.48 L Hgb 11.3 L Hct 34.6 L MCV 99 H MCH 33 H MCHC RDW Lymph % (Auto) Lymph # (Auto) Seg Neutrophils % Seg Neuts % (Manual) Lymphocytes % (Manual) Nucleated RBC % Seg Neutrophils # Seg Neutrophils # Man Lymphocytes # (Manual) D-Dimer ABG pH 7.455 H POC ABG pCO2 57.5 H POC ABG pO2 81.5 L ABG pO2 ABG HCO3 ABG O2 Saturation ABG Base Excess ABG Hemoglobin ABG Oxyhemoglobin ABG Sodium ABG Potassium ABG Chloride 96.0 L ABG Glucose 204 H Oxyhemoglobin Sodium Potassium Chloride Carbon Dioxide BUN Creatinine Glucose POC Glucose 183 H Lactic Acid Calcium Magnesium Ferritin Total Bilirubin Direct Bilirubin AST ALT Alkaline Phosphatase Lactate Dehydrogenase C-Reactive Protein Total Protein Albumin Triglycerides Arterial Blood Glucose 204 H Arterial Blood Ionized Calcium Urine WBC (Auto) Coronavirus (PCR) SARS-CoV-2 IgG Ab 05/30/20 05/31/20 05/31/20 18:01 00:10 03:22 WBC RBC Hgb Hct MCV MCH MCHC RDW Lymph % (Auto) Lymph # (Auto) Seg Neutrophils % Seg Neuts % (Manual) Lymphocytes % (Manual) Nucleated RBC % Seg Neutrophils # Seg Neutrophils # Man Lymphocytes # (Manual) D-Dimer ABG pH POC ABG pCO2 60.4 H POC ABG pO2 71.5 L ABG pO2 ABG HCO3 ABG O2 Saturation ABG Base Excess ABG Hemoglobin ABG Oxyhemoglobin ABG Sodium ABG Potassium ABG Chloride 96.0 L ABG Glucose 169 H Oxyhemoglobin Sodium Potassium Chloride Carbon Dioxide BUN Creatinine Glucose POC Glucose 184 H 135 H Lactic Acid Calcium Magnesium Ferritin Total Bilirubin Direct Bilirubin AST ALT Alkaline Phosphatase Lactate Dehydrogenase C-Reactive Protein Total Protein Albumin Triglycerides Arterial Blood Glucose 169 H Arterial Blood Ionized Calcium 4.5 L Urine WBC (Auto) Coronavirus (PCR) SARS-CoV-2 IgG Ab 05/31/20 05/31/20 05/31/20 05:24 11:18 14:41 WBC RBC Hgb Hct MCV MCH MCHC RDW Lymph % (Auto) Lymph # (Auto) Seg Neutrophils % Seg Neuts % (Manual) Lymphocytes % (Manual) Nucleated RBC % Seg Neutrophils # Seg Neutrophils # Man Lymphocytes # (Manual) D-Dimer ABG pH POC ABG pCO2 POC ABG pO2 ABG pO2 ABG HCO3 ABG O2 Saturation ABG Base Excess ABG Hemoglobin ABG Oxyhemoglobin ABG Sodium ABG Potassium ABG Chloride ABG Glucose Oxyhemoglobin Sodium Potassium Chloride 96.8 L Carbon Dioxide 37 H BUN 31 H Creatinine 0.6 L Glucose 213 H POC Glucose 164 H 208 H Lactic Acid Calcium Magnesium Ferritin Total Bilirubin Direct Bilirubin AST ALT Alkaline Phosphatase Lactate Dehydrogenase C-Reactive Protein Total Protein Albumin Triglycerides Arterial Blood Glucose Arterial Blood Ionized Calcium Urine WBC (Auto) Coronavirus (PCR) SARS-CoV-2 IgG Ab 05/31/20 05/31/20 06/01/20 17:37 23:47 03:48 WBC RBC Hgb Hct MCV MCH MCHC RDW Lymph % (Auto) Lymph # (Auto) Seg Neutrophils % Seg Neuts % (Manual) Lymphocytes % (Manual) Nucleated RBC % Seg Neutrophils # Seg Neutrophils # Man Lymphocytes # (Manual) D-Dimer ABG pH POC ABG pCO2 59.7 H POC ABG pO2 73.9 L ABG pO2 ABG HCO3 ABG O2 Saturation ABG Base Excess ABG Hemoglobin ABG Oxyhemoglobin ABG Sodium ABG Potassium ABG Chloride 95.0 L ABG Glucose 256 H Oxyhemoglobin Sodium Potassium Chloride Carbon Dioxide BUN Creatinine Glucose POC Glucose 168 H 178 H Lactic Acid Calcium Magnesium Ferritin Total Bilirubin Direct Bilirubin AST ALT Alkaline Phosphatase Lactate Dehydrogenase C-Reactive Protein Total Protein Albumin Triglycerides Arterial Blood Glucose 256 H Arterial Blood Ionized Calcium Urine WBC (Auto) Coronavirus (PCR) SARS-CoV-2 IgG Ab 06/01/20 06/01/20 06/01/20 05:01 07:47 07:47 WBC 14.4 H RBC 3.46 L Hgb 11.1 L Hct 34.3 L MCV 99 H MCH MCHC RDW Lymph % (Auto) Lymph # (Auto) Seg Neutrophils % Seg Neuts % (Manual) 86.0 H Lymphocytes % (Manual) 9.0 L Nucleated RBC % Seg Neutrophils # Seg Neutrophils # Man 12.4 H Lymphocytes # (Manual) D-Dimer ABG pH POC ABG pCO2 POC ABG pO2 ABG pO2 ABG HCO3 ABG O2 Saturation ABG Base Excess ABG Hemoglobin ABG Oxyhemoglobin ABG Sodium ABG Potassium ABG Chloride ABG Glucose Oxyhemoglobin Sodium Potassium Chloride Carbon Dioxide BUN Creatinine Glucose POC Glucose 197 H Lactic Acid Calcium Magnesium Ferritin Total Bilirubin Direct Bilirubin AST ALT Alkaline Phosphatase Lactate Dehydrogenase C-Reactive Protein Total Protein Albumin Triglycerides 244 H Arterial Blood Glucose Arterial Blood Ionized Calcium Urine WBC (Auto) Coronavirus (PCR) SARS-CoV-2 IgG Ab 06/01/20 06/01/20 06/01/20 07:47 11:46 18:15 WBC RBC Hgb Hct MCV MCH MCHC RDW Lymph % (Auto) Lymph # (Auto) Seg Neutrophils % Seg Neuts % (Manual) Lymphocytes % (Manual) Nucleated RBC % Seg Neutrophils # Seg Neutrophils # Man Lymphocytes # (Manual) D-Dimer ABG pH POC ABG pCO2 POC ABG pO2 ABG pO2 ABG HCO3 ABG O2 Saturation ABG Base Excess ABG Hemoglobin ABG Oxyhemoglobin ABG Sodium ABG Potassium ABG Chloride ABG Glucose Oxyhemoglobin Sodium Potassium Chloride 95.4 L Carbon Dioxide 35 H BUN 30 H Creatinine 0.5 L Glucose 214 H POC Glucose 181 H 221 H Lactic Acid Calcium Magnesium Ferritin Total Bilirubin Direct Bilirubin AST 54 H ALT 235 H Alkaline Phosphatase Lactate Dehydrogenase C-Reactive Protein Total Protein Albumin 2.9 L Triglycerides Arterial Blood Glucose Arterial Blood Ionized Calcium Urine WBC (Auto) Coronavirus (PCR) SARS-CoV-2 IgG Ab 06/01/20 06/02/20 06/02/20 23:12 04:00 05:31 WBC RBC Hgb Hct MCV MCH MCHC RDW Lymph % (Auto) Lymph # (Auto) Seg Neutrophils % Seg Neuts % (Manual) Lymphocytes % (Manual) Nucleated RBC % Seg Neutrophils # Seg Neutrophils # Man Lymphocytes # (Manual) D-Dimer ABG pH 7.465 H POC ABG pCO2 POC ABG pO2 ABG pO2 203.4 H ABG HCO3 41.2 H ABG O2 Saturation 99.3 H ABG Base Excess 15.1 H ABG Hemoglobin 11.5 L ABG Oxyhemoglobin ABG Sodium ABG Potassium ABG Chloride ABG Glucose Oxyhemoglobin Sodium Potassium Chloride Carbon Dioxide BUN Creatinine Glucose POC Glucose 197 H 184 H Lactic Acid Calcium Magnesium Ferritin Total Bilirubin Direct Bilirubin AST ALT Alkaline Phosphatase Lactate Dehydrogenase C-Reactive Protein Total Protein Albumin Triglycerides Arterial Blood Glucose Arterial Blood Ionized Calcium Urine WBC (Auto) Coronavirus (PCR) SARS-CoV-2 IgG Ab 06/02/20 06/02/20 06/02/20 11:49 18:06 23:00 WBC RBC Hgb Hct MCV MCH MCHC RDW Lymph % (Auto) Lymph # (Auto) Seg Neutrophils % Seg Neuts % (Manual) Lymphocytes % (Manual) Nucleated RBC % Seg Neutrophils # Seg Neutrophils # Man Lymphocytes # (Manual) D-Dimer ABG pH POC ABG pCO2 POC ABG pO2 ABG pO2 ABG HCO3 ABG O2 Saturation ABG Base Excess ABG Hemoglobin ABG Oxyhemoglobin ABG Sodium ABG Potassium ABG Chloride ABG Glucose Oxyhemoglobin Sodium Potassium Chloride Carbon Dioxide BUN Creatinine Glucose POC Glucose 195 H 177 H 228 H Lactic Acid Calcium Magnesium Ferritin Total Bilirubin Direct Bilirubin AST ALT Alkaline Phosphatase Lactate Dehydrogenase C-Reactive Protein Total Protein Albumin Triglycerides Arterial Blood Glucose Arterial Blood Ionized Calcium Urine WBC (Auto) Coronavirus (PCR) SARS-CoV-2 IgG Ab 06/03/20 06/03/20 06/03/20 03:58 05:19 12:21 WBC RBC Hgb Hct MCV MCH MCHC RDW Lymph % (Auto) Lymph # (Auto) Seg Neutrophils % Seg Neuts % (Manual) Lymphocytes % (Manual) Nucleated RBC % Seg Neutrophils # Seg Neutrophils # Man Lymphocytes # (Manual) D-Dimer ABG pH POC ABG pCO2 POC ABG pO2 ABG pO2 171.0 H ABG HCO3 42.8 H ABG O2 Saturation ABG Base Excess 15.6 H ABG Hemoglobin 12.3 L ABG Oxyhemoglobin ABG Sodium ABG Potassium ABG Chloride ABG Glucose Oxyhemoglobin Sodium Potassium Chloride Carbon Dioxide BUN Creatinine Glucose POC Glucose 122 H 207 H Lactic Acid Calcium Magnesium Ferritin Total Bilirubin Direct Bilirubin AST ALT Alkaline Phosphatase Lactate Dehydrogenase C-Reactive Protein Total Protein Albumin Triglycerides Arterial Blood Glucose Arterial Blood Ionized Calcium Urine WBC (Auto) Coronavirus (PCR) SARS-CoV-2 IgG Ab 06/03/20 06/03/20 06/04/20 17:27 23:50 03:55 WBC RBC Hgb Hct MCV MCH MCHC RDW Lymph % (Auto) Lymph # (Auto) Seg Neutrophils % Seg Neuts % (Manual) Lymphocytes % (Manual) Nucleated RBC % Seg Neutrophils # Seg Neutrophils # Man Lymphocytes # (Manual) D-Dimer ABG pH POC ABG pCO2 POC ABG pO2 ABG pO2 117.2 H ABG HCO3 42.4 H ABG O2 Saturation ABG Base Excess 15.3 H ABG Hemoglobin 10.5 L ABG Oxyhemoglobin ABG Sodium ABG Potassium ABG Chloride ABG Glucose Oxyhemoglobin Sodium Potassium Chloride Carbon Dioxide BUN Creatinine Glucose POC Glucose 157 H 214 H Lactic Acid Calcium Magnesium Ferritin Total Bilirubin Direct Bilirubin AST ALT Alkaline Phosphatase Lactate Dehydrogenase C-Reactive Protein Total Protein Albumin Triglycerides Arterial Blood Glucose Arterial Blood Ionized Calcium Urine WBC (Auto) Coronavirus (PCR) SARS-CoV-2 IgG Ab 06/04/20 06/04/20 06/04/20 05:49 11:41 17:30 WBC RBC Hgb Hct MCV MCH MCHC RDW Lymph % (Auto) Lymph # (Auto) Seg Neutrophils % Seg Neuts % (Manual) Lymphocytes % (Manual) Nucleated RBC % Seg Neutrophils # Seg Neutrophils # Man Lymphocytes # (Manual) D-Dimer ABG pH POC ABG pCO2 POC ABG pO2 ABG pO2 ABG HCO3 ABG O2 Saturation ABG Base Excess ABG Hemoglobin ABG Oxyhemoglobin ABG Sodium ABG Potassium ABG Chloride ABG Glucose Oxyhemoglobin Sodium Potassium Chloride Carbon Dioxide BUN Creatinine Glucose POC Glucose 149 H 233 H 156 H Lactic Acid Calcium Magnesium Ferritin Total Bilirubin Direct Bilirubin AST ALT Alkaline Phosphatase Lactate Dehydrogenase C-Reactive Protein Total Protein Albumin Triglycerides Arterial Blood Glucose Arterial Blood Ionized Calcium Urine WBC (Auto) Coronavirus (PCR) SARS-CoV-2 IgG Ab 06/04/20 06/04/20 06/04/20 19:01 20:53 23:41 WBC RBC 3.18 L Hgb 10.8 L Hct 31.8 L MCV 100 H MCH 34 H MCHC RDW Lymph % (Auto) Lymph # (Auto) Seg Neutrophils % Seg Neuts % (Manual) 86.0 H Lymphocytes % (Manual) 10.0 L Nucleated RBC % 1.0 H Seg Neutrophils # Seg Neutrophils # Man 8.5 H Lymphocytes # (Manual) 1.0 L D-Dimer ABG pH POC ABG pCO2 POC ABG pO2 ABG pO2 ABG HCO3 ABG O2 Saturation ABG Base Excess ABG Hemoglobin ABG Oxyhemoglobin ABG Sodium ABG Potassium ABG Chloride ABG Glucose Oxyhemoglobin Sodium Potassium 3.4 L D Chloride 96.5 L Carbon Dioxide 41 H* BUN 27 H Creatinine 0.5 L Glucose 173 H POC Glucose 217 H Lactic Acid Calcium Magnesium Ferritin Total Bilirubin Direct Bilirubin AST ALT Alkaline Phosphatase Lactate Dehydrogenase C-Reactive Protein Total Protein Albumin Triglycerides Arterial Blood Glucose Arterial Blood Ionized Calcium Urine WBC (Auto) Coronavirus (PCR) SARS-CoV-2 IgG Ab 06/05/20 06/05/20 06/05/20 06:05 11:54 12:35 WBC RBC Hgb Hct MCV MCH MCHC RDW Lymph % (Auto) Lymph # (Auto) Seg Neutrophils % Seg Neuts % (Manual) Lymphocytes % (Manual) Nucleated RBC % Seg Neutrophils # Seg Neutrophils # Man Lymphocytes # (Manual) D-Dimer ABG pH POC ABG pCO2 POC ABG pO2 ABG pO2 127.9 H ABG HCO3 41.1 H ABG O2 Saturation ABG Base Excess 13.0 H ABG Hemoglobin 13.4 L ABG Oxyhemoglobin ABG Sodium ABG Potassium ABG Chloride ABG Glucose Oxyhemoglobin Sodium Potassium Chloride Carbon Dioxide BUN Creatinine Glucose POC Glucose 137 H 211 H Lactic Acid Calcium Magnesium Ferritin Total Bilirubin Direct Bilirubin AST ALT Alkaline Phosphatase Lactate Dehydrogenase C-Reactive Protein Total Protein Albumin Triglycerides Arterial Blood Glucose Arterial Blood Ionized Calcium Urine WBC (Auto) Coronavirus (PCR) SARS-CoV-2 IgG Ab 06/05/20 06/05/20 06/06/20 17:03 23:49 04:42 WBC RBC Hgb Hct MCV MCH MCHC RDW Lymph % (Auto) Lymph # (Auto) Seg Neutrophils % Seg Neuts % (Manual) Lymphocytes % (Manual) Nucleated RBC % Seg Neutrophils # Seg Neutrophils # Man Lymphocytes # (Manual) D-Dimer ABG pH POC ABG pCO2 56.1 H POC ABG pO2 52.5 L ABG pO2 ABG HCO3 ABG O2 Saturation ABG Base Excess ABG Hemoglobin 11.7 L ABG Oxyhemoglobin ABG Sodium ABG Potassium 3.3 L ABG Chloride 95.0 L ABG Glucose 156 H Oxyhemoglobin Sodium Potassium Chloride Carbon Dioxide BUN Creatinine Glucose POC Glucose 159 H 194 H Lactic Acid Calcium Magnesium Ferritin Total Bilirubin Direct Bilirubin AST ALT Alkaline Phosphatase Lactate Dehydrogenase C-Reactive Protein Total Protein Albumin Triglycerides Arterial Blood Glucose 156 H Arterial Blood Ionized Calcium Urine WBC (Auto) Coronavirus (PCR) SARS-CoV-2 IgG Ab 06/06/20 06/06/20 06/06/20 05:57 12:06 17:38 WBC RBC Hgb Hct MCV MCH MCHC RDW Lymph % (Auto) Lymph # (Auto) Seg Neutrophils % Seg Neuts % (Manual) Lymphocytes % (Manual) Nucleated RBC % Seg Neutrophils # Seg Neutrophils # Man Lymphocytes # (Manual) D-Dimer ABG pH POC ABG pCO2 POC ABG pO2 ABG pO2 ABG HCO3 ABG O2 Saturation ABG Base Excess ABG Hemoglobin ABG Oxyhemoglobin ABG Sodium ABG Potassium ABG Chloride ABG Glucose Oxyhemoglobin Sodium Potassium Chloride Carbon Dioxide BUN Creatinine Glucose POC Glucose 144 H 230 H 162 H Lactic Acid Calcium Magnesium Ferritin Total Bilirubin Direct Bilirubin AST ALT Alkaline Phosphatase Lactate Dehydrogenase C-Reactive Protein Total Protein Albumin Triglycerides Arterial Blood Glucose Arterial Blood Ionized Calcium Urine WBC (Auto) Coronavirus (PCR) SARS-CoV-2 IgG Ab 06/06/20 06/07/20 06/07/20 23:50 04:34 06:03 WBC RBC Hgb Hct MCV MCH MCHC RDW Lymph % (Auto) Lymph # (Auto) Seg Neutrophils % Seg Neuts % (Manual) Lymphocytes % (Manual) Nucleated RBC % Seg Neutrophils # Seg Neutrophils # Man Lymphocytes # (Manual) D-Dimer ABG pH 7.511 H POC ABG pCO2 53.5 H POC ABG pO2 114.5 H ABG pO2 ABG HCO3 ABG O2 Saturation ABG Base Excess ABG Hemoglobin 9.4 L ABG Oxyhemoglobin ABG Sodium 134.5 L ABG Potassium ABG Chloride 94.0 L ABG Glucose 186 H Oxyhemoglobin Sodium Potassium Chloride Carbon Dioxide BUN Creatinine Glucose POC Glucose 181 H 155 H Lactic Acid Calcium Magnesium Ferritin Total Bilirubin Direct Bilirubin AST ALT Alkaline Phosphatase Lactate Dehydrogenase C-Reactive Protein Total Protein Albumin Triglycerides Arterial Blood Glucose 186 H Arterial Blood Ionized Calcium 4.5 L Urine WBC (Auto) Coronavirus (PCR) SARS-CoV-2 IgG Ab 06/07/20 06/07/20 06/07/20 13:41 14:58 14:58 WBC RBC 2.72 L Hgb 9.3 L Hct 27.2 L MCV 100 H MCH 34 H MCHC RDW Lymph % (Auto) Lymph # (Auto) Seg Neutrophils % Seg Neuts % (Manual) Lymphocytes % (Manual) Nucleated RBC % Seg Neutrophils # Seg Neutrophils # Man Lymphocytes # (Manual) D-Dimer ABG pH POC ABG pCO2 POC ABG pO2 ABG pO2 ABG HCO3 ABG O2 Saturation ABG Base Excess ABG Hemoglobin ABG Oxyhemoglobin ABG Sodium ABG Potassium ABG Chloride ABG Glucose Oxyhemoglobin Sodium Potassium Chloride 93.5 L Carbon Dioxide 39 H BUN 22 H Creatinine 0.4 L Glucose 188 H POC Glucose 201 H Lactic Acid Calcium Magnesium Ferritin Total Bilirubin Direct Bilirubin AST 61 H ALT 273 H Alkaline Phosphatase Lactate Dehydrogenase C-Reactive Protein Total Protein 5.9 L Albumin 2.7 L Triglycerides Arterial Blood Glucose Arterial Blood Ionized Calcium Urine WBC (Auto) Coronavirus (PCR) SARS-CoV-2 IgG Ab 06/07/20 06/08/20 06/08/20 23:18 05:31 12:07 WBC RBC Hgb Hct MCV MCH MCHC RDW Lymph % (Auto) Lymph # (Auto) Seg Neutrophils % Seg Neuts % (Manual) Lymphocytes % (Manual) Nucleated RBC % Seg Neutrophils # Seg Neutrophils # Man Lymphocytes # (Manual) D-Dimer ABG pH POC ABG pCO2 POC ABG pO2 ABG pO2 ABG HCO3 ABG O2 Saturation ABG Base Excess ABG Hemoglobin ABG Oxyhemoglobin ABG Sodium ABG Potassium ABG Chloride ABG Glucose Oxyhemoglobin Sodium Potassium Chloride Carbon Dioxide BUN Creatinine Glucose POC Glucose 214 H 129 H 179 H Lactic Acid Calcium Magnesium Ferritin Total Bilirubin Direct Bilirubin AST ALT Alkaline Phosphatase Lactate Dehydrogenase C-Reactive Protein Total Protein Albumin Triglycerides Arterial Blood Glucose Arterial Blood Ionized Calcium Urine WBC (Auto) Coronavirus (PCR) SARS-CoV-2 IgG Ab 06/08/20 06/08/20 06/09/20 18:18 23:35 05:42 WBC RBC Hgb Hct MCV MCH MCHC RDW Lymph % (Auto) Lymph # (Auto) Seg Neutrophils % Seg Neuts % (Manual) Lymphocytes % (Manual) Nucleated RBC % Seg Neutrophils # Seg Neutrophils # Man Lymphocytes # (Manual) D-Dimer ABG pH POC ABG pCO2 POC ABG pO2 ABG pO2 ABG HCO3 ABG O2 Saturation ABG Base Excess ABG Hemoglobin ABG Oxyhemoglobin ABG Sodium ABG Potassium ABG Chloride ABG Glucose Oxyhemoglobin Sodium Potassium Chloride Carbon Dioxide BUN Creatinine Glucose POC Glucose 172 H 177 H 137 H Lactic Acid Calcium Magnesium Ferritin Total Bilirubin Direct Bilirubin AST ALT Alkaline Phosphatase Lactate Dehydrogenase C-Reactive Protein Total Protein Albumin Triglycerides Arterial Blood Glucose Arterial Blood Ionized Calcium Urine WBC (Auto) Coronavirus (PCR) SARS-CoV-2 IgG Ab 06/09/20 06/09/20 06/09/20 06:20 07:55 07:55 WBC 12.4 H RBC 3.26 L Hgb 11.1 L Hct 33.4 L D MCV 102 H MCH 34 H MCHC RDW Lymph % (Auto) Lymph # (Auto) Seg Neutrophils % Seg Neuts % (Manual) Lymphocytes % (Manual) Nucleated RBC % Seg Neutrophils # Seg Neutrophils # Man Lymphocytes # (Manual) D-Dimer ABG pH 7.466 H POC ABG pCO2 50.7 H POC ABG pO2 53.0 L ABG pO2 ABG HCO3 ABG O2 Saturation ABG Base Excess ABG Hemoglobin ABG Oxyhemoglobin ABG Sodium ABG Potassium 2.9 L ABG Chloride 93.0 L ABG Glucose 138 H Oxyhemoglobin Sodium Potassium 3.0 L Chloride 92.3 L Carbon Dioxide 37 H BUN 21 H Creatinine 0.6 L Glucose 120 H POC Glucose Lactic Acid Calcium Magnesium Ferritin Total Bilirubin Direct Bilirubin AST ALT Alkaline Phosphatase Lactate Dehydrogenase C-Reactive Protein Total Protein Albumin Triglycerides Arterial Blood Glucose 138 H Arterial Blood Ionized Calcium 4.5 L Urine WBC (Auto) Coronavirus (PCR) SARS-CoV-2 IgG Ab 06/09/20 11:22 WBC RBC Hgb Hct MCV MCH MCHC RDW Lymph % (Auto) Lymph # (Auto) Seg Neutrophils % Seg Neuts % (Manual) Lymphocytes % (Manual) Nucleated RBC % Seg Neutrophils # Seg Neutrophils # Man Lymphocytes # (Manual) D-Dimer ABG pH POC ABG pCO2 POC ABG pO2 ABG pO2 ABG HCO3 ABG O2 Saturation ABG Base Excess ABG Hemoglobin ABG Oxyhemoglobin ABG Sodium ABG Potassium ABG Chloride ABG Glucose Oxyhemoglobin Sodium Potassium Chloride Carbon Dioxide BUN Creatinine Glucose POC Glucose 117 H Lactic Acid Calcium Magnesium Ferritin Total Bilirubin Direct Bilirubin AST ALT Alkaline Phosphatase Lactate Dehydrogenase C-Reactive Protein Total Protein Albumin Triglycerides Arterial Blood Glucose Arterial Blood Ionized Calcium Urine WBC (Auto) Coronavirus (PCR) SARS-CoV-2 IgG Ab Chest x-ray: pending Allied health notes reviewed: nursing
[2020-06-09] MEDS ORDERED: POTASSIUM CHLORIDE ER 20 MEQ TAB PO ONE (15:10)
--- NOTE | 2020-06-09 15:27 | XRay Report ---
CHEST 1 VIEW 06/09/2020 2:20 PM INDICATION / CLINICAL INFORMATION: respiratory failure. COMPARISON: Chest one view from 06/04/2020. FINDINGS: SUPPORT DEVICES: Interval right arm PICC placement with the tip projecting over the distal SVC. Other joyce unchanged. HEART / MEDIASTINUM: No significant abnormality. LUNGS / PLEURA: Increased generalized bilateral airspace opacities. No significant pleural effusion o r pneumothorax. ADDITIONAL FINDINGS: No significant additional findings. IMPRESSION: 1. Interval worsening of bilateral airspace opacities. 2. Satisfactory positioning of the right arm PICC. Signer Name: Moncho Carrington MD Signed: 06/09/2020 3:23 PM Workstation Name: [id number]
--- NOTE | 2020-06-09 15:28 | XRay Report ---
ABDOMEN 1 VIEW INDICATION / CLINICAL INFORMATION: Vomiting, distension. COMPARISON: KUB from 06/03/2020. FINDINGS: TUBES / LINES: Slight interval retraction of the NG tube with the tip projecting over the proximal ga stric body. BOWEL GAS PATTERN: No significant abnormality. FREE AIR / EXTRALUMINAL GAS: None seen. ADDITIONAL FINDINGS: No significant additional findings. IMPRESSION: 1. No acute abnormality. 2. Slight retraction of the NG tube. Signer Name: Moncho Carrington MD Signed: 06/09/2020 3:23 PM Workstation Name: [id number]
[2020-06-09] MEDS: METOCLOPRAMIDE 10 MG/2 ML INJ IV SCH ×2 (15:34→22:00)
[2020-06-09] MEDS: MIDAZOLAM 100 MG in SODIUM CHLORIDE 0.9% 80 ML IV SCH (16:21)
[2020-06-09] MEDS ORDERED: SODIUM CHLORIDE 0.9% 500 ML 500 ML IV ONE (17:43)
[2020-06-09] MEDS ORDERED: VASOPRESSIN 20 UNIT in SODIUM CHLORIDE 0.9% 100 ML IV SCH (18:00)
[2020-06-09] MEDS: POLYETHYLENE GLYCOL 3350 17 GM POWDER PO SCH (22:08)
--- NOTE | 2020-06-09 22:57 | Progress Note ---
Assessment and Plan Assessment and Plan Patient intubated last night because of persistent hypoxia --Elevated D-dimers; on full dose anticoagulation However ID requested to get CTA chest, patient is unstable to go for CT As he is requiring high flow oxygen. -- Acute hypoxemic respiratory failure; Patient intubated and on vent support --Elevated D-dimers; check CTA to rule out PE Lower extremity venous Doppler to rule out DVT Patient is already on full dose anticoagulation per COVID-19 protocol -- Novel coronavirus infection with Bilateral pneumonia Coronavirus protocol: IV steroid therapy, IV remdesivir, isolation precautions, contact precautions, prone positioning while in bed, pulmonary toilet. consulted ID --Severe sepsis, due to COVID 19 PNA cont to treat for COVID -- Acute kidney injury (SEN) , likely vasomotor nephropathy Resolved, IV fluids, avoid nephrotoxins -- Alcohol dependence; no episodes of withdrawal symptoms Thiamine, folic acid, multivitamin, CIWA protocol. -- Elevated liver function tests Suspected secondary to alcoholic liver disease. Supportive care, alcohol cessation, patient counseled. -- DVT prophylaxis prophylactic AC with lovenox for elevated D-dimer We will closely monitor patient and adjust management as needed Patient has severe Covid pneumonia, severe hypoxia Critically ill very poor prognosis Full CODE STATUS The high probability of a clinically significant, sudden or life threatening deterioration of the [Covid pneumonia, ID, respiratory, liver] system(s) required my full and direct attention, intervention and personal management. The aggregate critical care time was [32] minutes. This time is in addition to time spent performing reported procedures but includes the following: [x] Data Review and interpretation [x] Patient assessment and monitoring of vital signs [x] Documentation [x] Medication orders and management. Subjective Date of service: 06/09/20 Principal diagnosis: Ac hypoxemic resp failure; COVID-19; Severe Sepsis; Shaggy PNA; Alcohol Abuse Interval history: Brief history; 50 YO Male with Obesity, ETOH Dependence presents to ED for evaluation for shortness of breath, generalized weakness, fatigue, malaise, body aches, decreased exercise tolerance over the past 5 days. EMS was notified and upon arrival the patient was found to be in distress with a pulse oximetry of 76% on room air as well as fever to 103 F. In the ER chest x-ray and was found to have bilateral pneumonia. Patient admitted to medical floor and initiated on pneumonia protocol as well as COVID-19 protocol. Patient severe Covid pneumonia, with persistent severe hypoxemia requiring very high flow oxygen Today on continuous BiPAP, patient is in mild distress, critically ill with very poor prognosis. Patient was on high flow oxygen but could not be maintained above 90 hence patient intubated last night electively 05/17/2020; patient with severe COVID-19 pneumonia, in isolation room Patient is on high flow oxygen, and BiPAP 05/18/20; patient feels slightly better still hypoxic, requiring continuous high flow oxygen and BiPAP Respiratory team trying to wean 05/19/20; patient is severely hypoxemic requiring continuous BiPAP today, complains of generalized weakness Trying to wean off high flow oxygen, patient is in isolation 05/20/2020; patient remains on high flow oxygen/BiPAP/100% nonrebreather. Still is hypoxemic Has sinus tachycardia patient in mild distress Wean off high flow oxygen as tolerated, pulmonary critical following 05/21/20; patient is critically ill, on continuous BiPAP remains hypoxemic in mild distress Patient has severe Covid Pneumonia with persistent hypoxemia and poor prognosis 05/22/2020 Patient was intubated last night because of persistent hypoxemia Objective - Constitutional Vitals: Vital Signs - 12hr 06/09/20 06/09/20 06/09/20 11:00 12:00 13:00 Temperature 100.5 F H Pulse Rate 133 H 114 H 141 H Pulse Rate [ 148 H From Monitor] Respiratory 31 H 39 H 32 H Rate Blood Pressure 93/51 94/50 86/53 O2 Sat by Pulse 87 89 89 Oximetry 06/09/20 06/09/20 06/09/20 13:50 14:00 15:00 Temperature Pulse Rate 143 H 146 H 133 H Pulse Rate [ From Monitor] Respiratory 30 H 40 H Rate Blood Pressure 95/87 111/66 72/48 O2 Sat by Pulse 91 89 91 Oximetry 06/09/20 06/09/20 06/09/20 16:00 17:00 17:46 Temperature Pulse Rate 119 H 110 H 111 H Pulse Rate [ 142 H From Monitor] Respiratory 40 H 30 H Rate Blood Pressure 86/40 75/46 99/39 O2 Sat by Pulse 98 96 97 Oximetry 06/09/20 06/09/20 06/09/20 18:00 19:00 20:00 Temperature 99.1 F Pulse Rate 109 H 107 H 100 H Pulse Rate [ From Monitor] Respiratory 30 H 30 H 29 H Rate Blood Pressure 109/47 118/48 127/49 O2 Sat by Pulse 97 98 98 Oximetry 06/09/20 21:00 Temperature Pulse Rate 95 H Pulse Rate [ From Monitor] Respiratory 30 H Rate Blood Pressure 126/55 O2 Sat by Pulse 97 Oximetry General appearance: Present: no acute distress, well-nourished - EENT Eyes: PERRL, EOM intact ENT: hearing intact, clear oral mucosa Ears: bilateral: normal - Neck Neck: supple, normal ROM - Respiratory Respiratory effort: normal Respiratory: bilateral: CTA - Breasts Breasts: normal - Cardiovascular Rhythm: regular Heart Sounds: Present: S1 & S2. Absent: gallop, rub Extremities: pulses intact, No edema, normal color, Full ROM - Gastrointestinal General gastrointestinal: Present: soft, non-tender, non-distended, normal bowel sounds - Genitourinary Male genitourinary: normal - Integumentary Integumentary: clear, warm, dry - Musculoskeletal Musculoskeletal: 1, strength equal bilaterally - Neurologic Neurologic: moves all extremities - Psychiatric Psychiatric: memory intact, appropriate mood/affect, intact judgment & insight - Labs CBC & Chem 7: 06/09/20 07:55 06/09/20 07:55 Labs: Abnormal lab results 06/08/20 06/09/20 06/09/20 Range/Units 23:35 05:42 06:20 WBC (4.5-11.0) K/mm3 RBC (3.65-5.03) M/mm3 Hgb (11.8-15.2) gm/dl Hct (35.5-45.6) % MCV (84-94) fl MCH (28-32) pg ABG pH 7.466 H (7.320-7.450) POC ABG pCO2 50.7 H (32.0-48.0) mmHg POC ABG pO2 53.0 L (83-108) mmHg ABG Potassium 2.9 L (3.40-4.50) mmol/L ABG Chloride 93.0 L (98-107) mmol/L ABG Glucose 138 H (65-95) mg/dL Potassium (3.6-5.0) mmol/L Chloride (98-107) mmol/L Carbon Dioxide (22-30) mmol/L BUN (9-20) mg/dL Creatinine (0.8-1.3) mg/dL Glucose (75-100) mg/dL POC Glucose 177 H 137 H (70-105) mg/dL Arterial Blood Glucose 138 H (65-95) mg/dL Arterial Blood Ionized Calcium 4.5 L (4.6-5.3) mg/dL 06/09/20 06/09/20 06/09/20 Range/Units 07:55 07:55 11:22 WBC 12.4 H (4.5-11.0) K/mm3 RBC 3.26 L (3.65-5.03) M/mm3 Hgb 11.1 L (11.8-15.2) gm/dl Hct 33.4 L D (35.5-45.6) % MCV 102 H (84-94) fl MCH 34 H (28-32) pg ABG pH (7.320-7.450) POC ABG pCO2 (32.0-48.0) mmHg POC ABG pO2 (83-108) mmHg ABG Potassium (3.40-4.50) mmol/L ABG Chloride (98-107) mmol/L ABG Glucose (65-95) mg/dL Potassium 3.0 L (3.6-5.0) mmol/L Chloride 92.3 L (98-107) mmol/L Carbon Dioxide 37 H (22-30) mmol/L BUN 21 H (9-20) mg/dL Creatinine 0.6 L (0.8-1.3) mg/dL Glucose 120 H (75-100) mg/dL POC Glucose 117 H (70-105) mg/dL Arterial Blood Glucose (65-95) mg/dL Arterial Blood Ionized Calcium (4.6-5.3) mg/dL 06/09/20 Range/Units 18:32 WBC (4.5-11.0) K/mm3 RBC (3.65-5.03) M/mm3 Hgb (11.8-15.2) gm/dl Hct (35.5-45.6) % MCV (84-94) fl MCH (28-32) pg ABG pH (7.320-7.450) POC ABG pCO2 (32.0-48.0) mmHg POC ABG pO2 (83-108) mmHg ABG Potassium (3.40-4.50) mmol/L ABG Chloride (98-107) mmol/L ABG Glucose (65-95) mg/dL Potassium (3.6-5.0) mmol/L Chloride (98-107) mmol/L Carbon Dioxide (22-30) mmol/L BUN (9-20) mg/dL Creatinine (0.8-1.3) mg/dL Glucose (75-100) mg/dL POC Glucose 121 H (70-105) mg/dL Arterial Blood Glucose (65-95) mg/dL Arterial Blood Ionized Calcium (4.6-5.3) mg/dL
[2020-06-10] MEDS: INSULIN LISPRO 100 UNIT/ML VIAL 3 mL SUB-Q SCH ×4 (01:00→17:34)
[2020-06-10] MEDS: PROPOFOL 500 MG/50 ML IV SCH ×9 (02:06→22:57)
[2020-06-10] MEDS: NORepinephrine/NS 4 MG-250 ML 4 MG/250 ML BAG IV SCH ×7 (02:06→22:59)
[2020-06-10] MEDS: METOCLOPRAMIDE 10 MG/2 ML INJ IV SCH ×4 (04:00→21:05)
[2020-06-10] MEDS: fentaNYL DRIP Premix 2,000 MCG/100 ML BAG IV SCH ×4 (06:24→22:55)
[2020-06-10] MEDS: methylPREDNISolone Sod Succinate 40 MG/1 ML INJ IV SCH ×2 (06:25→16:59)
[2020-06-10] MEDS: DOCUSATE SODIUM 100 MG/10 ML ORAL LIQD PO SCH ×2 (09:32→21:21)
[2020-06-10] MEDS: FOLIC ACID 1 MG TAB PO SCH (09:32)
[2020-06-10] MEDS: FAMOTIDINE 20 MG TAB PO SCH ×2 (09:32→21:27)
[2020-06-10] MEDS: QUEtiapine 100 MG TAB PO SCH ×2 (09:33→21:32)
[2020-06-10] MEDS: SENNOSIDES 8.6 MG TAB PO SCH ×2 (09:33→21:27)
[2020-06-10] MEDS: ENOXAPARIN 120 MG/0.8 ML INJ SUB-Q SCH ×2 (09:33→21:33)
[2020-06-10] MEDS ORDERED: QUEtiapine 200 MG TAB PO SCH (14:00)
--- NOTE | 2020-06-10 16:11 | Progress Note ---
Assessment and Plan Acute hypoxemic respiratory failure due to COVID-19 Severe Sepsis Bilateral pneumonia Acute kidney injury (SEN) with acute tubular necrosis (ATN) Alcohol dependence Elevated liver function tests - stop Propofol - repeat triglyceride level in am - reduced FiO2 to 50% - keep peep at 14 - continue Reglan 5mg IV q6h - resume tube feeds @ 35 mls/hr and advance slowly to goal rate - continue to wean Levophed for target MAP > 65 mmHg (@ 14 sergio's/min) - continue to wean supplemental oxygen for target O2 sat's > 92% acutely - prn lab work and address electrolytes - ETT day # 20; he will need a tracheostomy once numbers better - continue care as below otherwise; - continue Daily SAT and SBT assessment as tolerated - VAP bundle addressed - continue lung protective strategies - continue bronchodilators with pulmonary hygiene per RT - wean per pulmonary driven protocols otherwise - accuchecks with glycemic control per SSI (While critically ill target blood glucose of 140-180 mg/dL; avoid hypoglycemia) - sedation prn for target RASS -1 to -2 - continue enteral nutritional support at goal rate as tolerated - continue airborne and contact isolation - follow repeat COVID-19 testing - continue Zinc & Vit C supplementaion - continue systemic steroids for Asthma / severe COVID infection - Prone positioning as tolerated - continue empiric full dose anticoagulation re: elevated d-dimers / hypercoagulable state - NOT a candidate for COVID convalescent plasma - continue systemic steroids X >/= 10 days - complete remdesivir dosing (total 5 days) - Monitor liver function test on Remdesivir - trend inflammatory markers - ferritin, Ddimer, CRP, LDH; to aid clinical decision making - empiric AB's coverage per ID rec's otherwise - accuchecks with glycemic control per SSI (While critically ill target blood glucose of 140-180 mg/dL; avoid hypoglycemia) - avoid nephrotoxins, renally dose all medications - continue to avoid benzodiazepine's, reduce the possibility of delirium - prn analgesia per CPOT score - Maintenance of sleep-wake cycle, avoid delirium - continue to avoid benzodiazepine's, reduce the possibility of delirium - aspiration precautions - G.I. & VTE prophylaxis - PT/OT/ROM exercises - continue mobility protocols for pressure ulcer prophylaxis - Monitor hemodynamics closely - continue other care per attending / other consultants - discharge planning ongoing concurrently .... Re-evaluate in am & prn CONDITION: CRITICAL PROGNOSIS: GUARDED CODE STATUS: FULL CODE The high probability of a clinically significant, sudden or life-threatening deterioration of the [respiratory, cardiovascular, hematologic & neurologic] system(s) required my full and direct attention, intervention and personal ma dee. The aggregate critical care time was [32] minutes without overlap. Time includes spent on; [x] Data Review and interpretation [x] Patient assessment and monitoring of vital signs [x] Documentation [x] Medication orders and management Subjective Date of service: 06/10/20 Principal diagnosis: Ac hypoxemic resp failure; COVID-19; Severe Sepsis; Shaggy PNA; Alcohol Abuse Interval history: Patient is seen today for: Acute hypoxemic respiratory failure due to COVID-19; Severe Sepsis; Bilateral pneumonia; Alcohol dependence; Elevated liver function tests Seen and examined at bedside; 24hour events reviewed; nursing and respiratory care staff consulted; no adverse overnight events reported to me; resting in bed; remains on MVS; FiO2 better and down to 55% with 98% O2 sat's; no emesis or overt aspiration; sedated; looks much more comfortable today however now with hypertriglyceridemia Objective Vital Signs - 12hr 06/10/20 06/10/20 06/10/20 05:00 06:00 07:00 Temperature Pulse Rate 105 H 101 H 125 H Pulse Rate [ From Monitor] Respiratory 30 H 30 H 26 H Rate Blood Pressure 147/83 126/81 74/49 O2 Sat by Pulse 98 97 95 Oximetry 06/10/20 06/10/20 06/10/20 08:00 08:20 09:00 Temperature 99.1 F Pulse Rate 78 98 H 75 Pulse Rate [ 98 H From Monitor] Respiratory 30 H 30 H Rate Blood Pressure 146/81 146/81 148/83 O2 Sat by Pulse 97 100 97 Oximetry 06/10/20 06/10/20 06/10/20 10:00 11:00 11:44 Temperature Pulse Rate 99 H 103 H 103 H Pulse Rate [ From Monitor] Respiratory 30 H Rate Blood Pressure 131/81 120/73 120/73 O2 Sat by Pulse 98 94 94 Oximetry 06/10/20 06/10/20 06/10/20 12:00 13:00 14:00 Temperature 98.5 F Pulse Rate 90 90 71 Pulse Rate [ 95 H From Monitor] Respiratory 30 H 30 H 13 Rate Blood Pressure 130/82 127/79 122/74 O2 Sat by Pulse 97 97 96 Oximetry 06/10/20 15:43 Temperature Pulse Rate 71 Pulse Rate [ From Monitor] Respiratory Rate Blood Pressure 122/74 O2 Sat by Pulse 96 Oximetry Constitutional: no acute distress, asleep, other (middle aged obese male with normal respiratory effort at rest on MVS) Eyes: non-icteric ENT: oropharynx moist, other (ETT 24 cm CHILO) Neck: supple, no JVD Effort: normal Ascultation: Bilateral: diminished breath sounds, rhonchi Percussion: Bilateral: not dull Cardiovascular: regular rate and rhythm Gastrointestinal: normoactive bowel sounds, soft, non-tender, non-distended (protuberant) Integumentary: normal Extremities: no cyanosis, no edema, pulses normal, no ischemia or petechiae Neurologic: non-focal exam, pupils equal and round, CN II-XII normal, motor strength normal and, other (sedated) Psychiatric: other (sedated) CBC and BMP: 06/09/20 07:55 06/09/20 07:55 ABG, PT/INR, D-dimer: ABG ABG pH 7.501 (7.320-7.450) H 06/10/20 04:46 POC ABG pCO2 42.6 mmHg (32.0-48.0) 06/10/20 04:46 ABG pCO2 69.6 mm Hg 06/05/20 12:35 POC ABG pO2 126.5 mmHg (83-108) H 06/10/20 04:46 ABG pO2 127.9 mm Hg (80.0-90.0) H 06/05/20 12:35 POC ABG HCO3 32.5 06/10/20 04:46 ABG O2 Saturation 98.3 % (95.0-99.0) 06/05/20 12:35 PT/INR, D-dimer D-Dimer 1887.82 ng/mlDDU (0-234) H 05/20/20 08:16 Abnormal lab findings: Abnormal Labs 05/09/20 05/09/20 05/09/20 12:59 12:59 12:59 WBC 11.8 H RBC Hgb Hct MCV 96 H MCH 34 H MCHC 35 H RDW Lymph % (Auto) 6.9 L Lymph # (Auto) 0.8 L Seg Neutrophils % 87.5 H Seg Neuts % (Manual) Lymphocytes % (Manual) Nucleated RBC % Seg Neutrophils # 10.3 H Seg Neutrophils # Man Lymphocytes # (Manual) D-Dimer ABG pH POC ABG pCO2 POC ABG pO2 ABG pO2 ABG HCO3 ABG O2 Saturation ABG Base Excess ABG Hemoglobin ABG Oxyhemoglobin ABG Sodium ABG Potassium ABG Chloride ABG Glucose Oxyhemoglobin Sodium 130 L Potassium 3.5 L Chloride 86.4 L Carbon Dioxide BUN 33 H Creatinine 2.3 H Glucose 156 H POC Glucose Lactic Acid Calcium Magnesium Ferritin Total Bilirubin 3.40 H Direct Bilirubin 1.7 H AST 385 H ALT 134 H Alkaline Phosphatase Lactate Dehydrogenase C-Reactive Protein Total Protein Albumin 3.0 L Triglycerides Arterial Blood Glucose Arterial Blood Ionized Calcium Urine WBC (Auto) Coronavirus (PCR) SARS-CoV-2 IgG Ab 05/09/20 05/09/20 05/09/20 12:59 12:59 12:59 WBC RBC Hgb Hct MCV MCH MCHC RDW Lymph % (Auto) Lymph # (Auto) Seg Neutrophils % Seg Neuts % (Manual) Lymphocytes % (Manual) Nucleated RBC % Seg Neutrophils # Seg Neutrophils # Man Lymphocytes # (Manual) D-Dimer 3242.51 H ABG pH POC ABG pCO2 POC ABG pO2 ABG pO2 ABG HCO3 ABG O2 Saturation ABG Base Excess ABG Hemoglobin ABG Oxyhemoglobin ABG Sodium ABG Potassium ABG Chloride ABG Glucose Oxyhemoglobin Sodium Potassium Chloride Carbon Dioxide BUN Creatinine Glucose 158 H POC Glucose Lactic Acid 3.50 H* Calcium Magnesium Ferritin Total Bilirubin Direct Bilirubin AST ALT Alkaline Phosphatase Lactate Dehydrogenase 2166 H C-Reactive Protein 39.00 H Total Protein Albumin Triglycerides Arterial Blood Glucose Arterial Blood Ionized Calcium Urine WBC (Auto) Coronavirus (PCR) SARS-CoV-2 IgG Ab 05/09/20 05/09/20 05/09/20 12:59 14:20 14:20 WBC RBC Hgb Hct MCV MCH MCHC RDW Lymph % (Auto) Lymph # (Auto) Seg Neutrophils % Seg Neuts % (Manual) Lymphocytes % (Manual) Nucleated RBC % Seg Neutrophils # Seg Neutrophils # Man Lymphocytes # (Manual) D-Dimer 2861.78 H ABG pH POC ABG pCO2 POC ABG pO2 ABG pO2 ABG HCO3 ABG O2 Saturation ABG Base Excess ABG Hemoglobin ABG Oxyhemoglobin ABG Sodium ABG Potassium ABG Chloride ABG Glucose Oxyhemoglobin Sodium Potassium Chloride Carbon Dioxide BUN Creatinine Glucose POC Glucose Lactic Acid 2.20 H* Calcium Magnesium Ferritin 09185.0 H Total Bilirubin Direct Bilirubin AST ALT Alkaline Phosphatase Lactate Dehydrogenase C-Reactive Protein Total Protein Albumin Triglycerides Arterial Blood Glucose Arterial Blood Ionized Calcium Urine WBC (Auto) Coronavirus (PCR) SARS-CoV-2 IgG Ab 05/09/20 05/09/20 05/09/20 14:20 14:20 15:56 WBC RBC Hgb Hct MCV MCH MCHC RDW Lymph % (Auto) Lymph # (Auto) Seg Neutrophils % Seg Neuts % (Manual) Lymphocytes % (Manual) Nucleated RBC % Seg Neutrophils # Seg Neutrophils # Man Lymphocytes # (Manual) D-Dimer ABG pH POC ABG pCO2 POC ABG pO2 57.3 L ABG pO2 ABG HCO3 ABG O2 Saturation ABG Base Excess ABG Hemoglobin ABG Oxyhemoglobin 86.3 L ABG Sodium 129.9 L ABG Potassium ABG Chloride ABG Glucose 146 H Oxyhemoglobin Sodium Potassium Chloride Carbon Dioxide BUN Creatinine Glucose 143 H POC Glucose Lactic Acid Calcium Magnesium Ferritin 09608.0 H Total Bilirubin Direct Bilirubin AST ALT Alkaline Phosphatase Lactate Dehydrogenase 1953 H C-Reactive Protein 33.50 H Total Protein Albumin Triglycerides Arterial Blood Glucose 146 H Arterial Blood Ionized Calcium 3.9 L Urine WBC (Auto) Coronavirus (PCR) SARS-CoV-2 IgG Ab 05/10/20 05/10/20 05/10/20 10:32 10:32 18:50 WBC 15.4 H RBC Hgb Hct MCV 97 H MCH 33 H MCHC RDW 13.1 L Lymph % (Auto) Lymph # (Auto) Seg Neutrophils % Seg Neuts % (Manual) 89.0 H Lymphocytes % (Manual) 8.0 L Nucleated RBC % Seg Neutrophils # Seg Neutrophils # Man 13.7 H Lymphocytes # (Manual) D-Dimer ABG pH POC ABG pCO2 POC ABG pO2 ABG pO2 ABG HCO3 ABG O2 Saturation ABG Base Excess ABG Hemoglobin ABG Oxyhemoglobin ABG Sodium ABG Potassium ABG Chloride ABG Glucose Oxyhemoglobin Sodium 136 L Potassium Chloride 97.4 L Carbon Dioxide BUN 37 H Creatinine 1.7 H Glucose 209 H POC Glucose Lactic Acid Calcium Magnesium Ferritin > 2000.0 H Total Bilirubin Direct Bilirubin AST ALT Alkaline Phosphatase Lactate Dehydrogenase C-Reactive Protein Total Protein Albumin Triglycerides Arterial Blood Glucose Arterial Blood Ionized Calcium Urine WBC (Auto) Coronavirus (PCR) SARS-CoV-2 IgG Ab 05/10/20 05/10/20 05/10/20 18:50 19:00 Unknown WBC RBC Hgb Hct MCV MCH MCHC RDW Lymph % (Auto) Lymph # (Auto) Seg Neutrophils % Seg Neuts % (Manual) Lymphocytes % (Manual) Nucleated RBC % Seg Neutrophils # Seg Neutrophils # Man Lymphocytes # (Manual) D-Dimer > 60561 H ABG pH POC ABG pCO2 POC ABG pO2 ABG pO2 ABG HCO3 ABG O2 Saturation ABG Base Excess ABG Hemoglobin ABG Oxyhemoglobin ABG Sodium ABG Potassium ABG Chloride ABG Glucose Oxyhemoglobin Sodium Potassium Chloride Carbon Dioxide BUN Creatinine Glucose POC Glucose Lactic Acid Calcium Magnesium Ferritin Total Bilirubin Direct Bilirubin AST ALT Alkaline Phosphatase Lactate Dehydrogenase 1879 H C-Reactive Protein 24.80 H Total Protein Albumin Triglycerides Arterial Blood Glucose Arterial Blood Ionized Calcium Urine WBC (Auto) 11.0 H Coronavirus (PCR) SARS-CoV-2 IgG Ab 05/10/20 05/11/20 05/11/20 Unknown 07:30 07:30 WBC RBC Hgb Hct MCV MCH MCHC RDW Lymph % (Auto) Lymph # (Auto) Seg Neutrophils % Seg Neuts % (Manual) Lymphocytes % (Manual) Nucleated RBC % Seg Neutrophils # Seg Neutrophils # Man Lymphocytes # (Manual) D-Dimer > 2000 H ABG pH POC ABG pCO2 POC ABG pO2 ABG pO2 ABG HCO3 ABG O2 Saturation ABG Base Excess ABG Hemoglobin ABG Oxyhemoglobin ABG Sodium ABG Potassium ABG Chloride ABG Glucose Oxyhemoglobin Sodium Potassium Chloride 96.3 L Carbon Dioxide BUN 36 H Creatinine Glucose 161 H POC Glucose Lactic Acid Calcium 8.3 L Magnesium Ferritin Total Bilirubin 1.50 H Direct Bilirubin 0.6 H AST 178 H ALT 111 H Alkaline Phosphatase Lactate Dehydrogenase C-Reactive Protein Total Protein Albumin 3.0 L Triglycerides Arterial Blood Glucose Arterial Blood Ionized Calcium Urine WBC (Auto) Coronavirus (PCR) Positive A SARS-CoV-2 IgG Ab 05/11/20 05/11/20 05/11/20 07:30 07:30 07:30 WBC RBC Hgb Hct MCV MCH MCHC RDW Lymph % (Auto) Lymph # (Auto) Seg Neutrophils % Seg Neuts % (Manual) Lymphocytes % (Manual) Nucleated RBC % Seg Neutrophils # Seg Neutrophils # Man Lymphocytes # (Manual) D-Dimer ABG pH POC ABG pCO2 POC ABG pO2 ABG pO2 ABG HCO3 ABG O2 Saturation ABG Base Excess ABG Hemoglobin ABG Oxyhemoglobin ABG Sodium ABG Potassium ABG Chloride ABG Glucose Oxyhemoglobin Sodium Potassium Chloride Carbon Dioxide BUN Creatinine Glucose POC Glucose Lactic Acid Calcium Magnesium Ferritin 11413.0 H Total Bilirubin Direct Bilirubin AST ALT Alkaline Phosphatase Lactate Dehydrogenase 1523 H C-Reactive Protein 12.90 H Total Protein Albumin Triglycerides Arterial Blood Glucose Arterial Blood Ionized Calcium Urine WBC (Auto) Coronavirus (PCR) SARS-CoV-2 IgG Ab Reactive A 05/13/20 05/13/20 05/15/20 05:20 05:20 08:15 WBC RBC Hgb Hct MCV MCH MCHC RDW Lymph % (Auto) Lymph # (Auto) Seg Neutrophils % Seg Neuts % (Manual) Lymphocytes % (Manual) Nucleated RBC % Seg Neutrophils # Seg Neutrophils # Man Lymphocytes # (Manual) D-Dimer > 66943 H 5318.28 H ABG pH POC ABG pCO2 POC ABG pO2 ABG pO2 ABG HCO3 ABG O2 Saturation ABG Base Excess ABG Hemoglobin ABG Oxyhemoglobin ABG Sodium ABG Potassium ABG Chloride ABG Glucose Oxyhemoglobin Sodium Potassium Chloride Carbon Dioxide 32 H BUN 30 H Creatinine Glucose 156 H POC Glucose Lactic Acid Calcium Magnesium 2.60 H Ferritin Total Bilirubin 1.40 H Direct Bilirubin AST 121 H ALT 119 H Alkaline Phosphatase Lactate Dehydrogenase 957 H C-Reactive Protein 4.00 H Total Protein Albumin 3.0 L Triglycerides Arterial Blood Glucose Arterial Blood Ionized Calcium Urine WBC (Auto) Coronavirus (PCR) SARS-CoV-2 IgG Ab 05/15/20 05/15/20 05/15/20 08:15 08:15 08:15 WBC 12.4 H RBC Hgb Hct MCV 98 H MCH 33 H MCHC RDW Lymph % (Auto) 9.7 L Lymph # (Auto) Seg Neutrophils % 86.8 H Seg Neuts % (Manual) Lymphocytes % (Manual) Nucleated RBC % Seg Neutrophils # 10.8 H Seg Neutrophils # Man Lymphocytes # (Manual) D-Dimer ABG pH POC ABG pCO2 POC ABG pO2 ABG pO2 ABG HCO3 ABG O2 Saturation ABG Base Excess ABG Hemoglobin ABG Oxyhemoglobin ABG Sodium ABG Potassium ABG Chloride ABG Glucose Oxyhemoglobin Sodium Potassium Chloride 94.8 L Carbon Dioxide 32 H BUN 22 H Creatinine Glucose 115 H POC Glucose Lactic Acid Calcium 8.3 L Magnesium Ferritin 2494.0 H Total Bilirubin Direct Bilirubin AST 73 H ALT 121 H Alkaline Phosphatase Lactate Dehydrogenase 835 H C-Reactive Protein 3.40 H Total Protein 6.1 L Albumin 3.0 L Triglycerides Arterial Blood Glucose Arterial Blood Ionized Calcium Urine WBC (Auto) Coronavirus (PCR) SARS-CoV-2 IgG Ab 05/17/20 05/17/20 05/17/20 05:50 05:50 05:50 WBC RBC Hgb Hct MCV MCH MCHC RDW Lymph % (Auto) Lymph # (Auto) Seg Neutrophils % Seg Neuts % (Manual) Lymphocytes % (Manual) Nucleated RBC % Seg Neutrophils # Seg Neutrophils # Man Lymphocytes # (Manual) D-Dimer 2911.42 H ABG pH POC ABG pCO2 POC ABG pO2 ABG pO2 ABG HCO3 ABG O2 Saturation ABG Base Excess ABG Hemoglobin ABG Oxyhemoglobin ABG Sodium ABG Potassium ABG Chloride ABG Glucose Oxyhemoglobin Sodium 136 L Potassium Chloride 96.0 L Carbon Dioxide 34 H BUN 22 H Creatinine Glucose 140 H POC Glucose Lactic Acid Calcium Magnesium Ferritin 2082.0 H Total Bilirubin Direct Bilirubin AST ALT 75 H Alkaline Phosphatase Lactate Dehydrogenase 601 H C-Reactive Protein 2.70 H Total Protein Albumin 2.9 L Triglycerides Arterial Blood Glucose Arterial Blood Ionized Calcium Urine WBC (Auto) Coronavirus (PCR) SARS-CoV-2 IgG Ab 05/17/20 05/18/20 05/20/20 05:50 12:22 08:16 WBC RBC Hgb Hct MCV 98 H MCH 33 H MCHC RDW Lymph % (Auto) 8.0 L Lymph # (Auto) 0.8 L Seg Neutrophils % 89.3 H Seg Neuts % (Manual) Lymphocytes % (Manual) Nucleated RBC % Seg Neutrophils # 8.8 H Seg Neutrophils # Man Lymphocytes # (Manual) D-Dimer 1887.82 H ABG pH POC ABG pCO2 POC ABG pO2 ABG pO2 ABG HCO3 ABG O2 Saturation ABG Base Excess ABG Hemoglobin ABG Oxyhemoglobin ABG Sodium ABG Potassium ABG Chloride ABG Glucose Oxyhemoglobin Sodium Potassium Chloride Carbon Dioxide BUN Creatinine Glucose POC Glucose 178 H Lactic Acid Calcium Magnesium Ferritin Total Bilirubin Direct Bilirubin AST ALT Alkaline Phosphatase Lactate Dehydrogenase C-Reactive Protein Total Protein Albumin Triglycerides Arterial Blood Glucose Arterial Blood Ionized Calcium Urine WBC (Auto) Coronavirus (PCR) SARS-CoV-2 IgG Ab 05/20/20 05/20/20 05/21/20 08:16 08:16 21:10 WBC RBC Hgb Hct MCV MCH MCHC RDW Lymph % (Auto) Lymph # (Auto) Seg Neutrophils % Seg Neuts % (Manual) Lymphocytes % (Manual) Nucleated RBC % Seg Neutrophils # Seg Neutrophils # Man Lymphocytes # (Manual) D-Dimer ABG pH 7.483 H POC ABG pCO2 POC ABG pO2 ABG pO2 50.0 L ABG HCO3 27.0 H ABG O2 Saturation 86.2 L ABG Base Excess 3.7 H ABG Hemoglobin ABG Oxyhemoglobin ABG Sodium ABG Potassium ABG Chloride ABG Glucose Oxyhemoglobin 84.2 L Sodium Potassium Chloride Carbon Dioxide BUN Creatinine Glucose POC Glucose Lactic Acid Calcium Magnesium Ferritin 1960.0 H Total Bilirubin Direct Bilirubin AST ALT Alkaline Phosphatase Lactate Dehydrogenase 705 H C-Reactive Protein 3.10 H Total Protein Albumin Triglycerides Arterial Blood Glucose Arterial Blood Ionized Calcium Urine WBC (Auto) Coronavirus (PCR) SARS-CoV-2 IgG Ab 05/22/20 05/22/20 05/22/20 04:01 07:53 07:53 WBC 19.2 H RBC Hgb Hct MCV 98 H MCH 34 H MCHC RDW Lymph % (Auto) Lymph # (Auto) Seg Neutrophils % Seg Neuts % (Manual) 96.0 H Lymphocytes % (Manual) 1.0 L Nucleated RBC % Seg Neutrophils # Seg Neutrophils # Man 18.4 H Lymphocytes # (Manual) 0.2 L D-Dimer ABG pH POC ABG pCO2 53.8 H POC ABG pO2 125.5 H ABG pO2 ABG HCO3 ABG O2 Saturation ABG Base Excess ABG Hemoglobin ABG Oxyhemoglobin ABG Sodium 131.8 L ABG Potassium 4.8 H ABG Chloride 94.0 L ABG Glucose 163 H Oxyhemoglobin Sodium 131 L Potassium Chloride 93.4 L Carbon Dioxide BUN 40 H Creatinine Glucose 176 H POC Glucose Lactic Acid Calcium Magnesium 2.70 H Ferritin Total Bilirubin 1.80 H Direct Bilirubin AST 45 H ALT 116 H Alkaline Phosphatase 181 H Lactate Dehydrogenase C-Reactive Protein Total Protein Albumin 2.6 L Triglycerides Arterial Blood Glucose 163 H Arterial Blood Ionized Calcium 4.5 L Urine WBC (Auto) Coronavirus (PCR) SARS-CoV-2 IgG Ab 05/23/20 05/24/20 05/24/20 04:17 03:07 04:08 WBC RBC Hgb Hct MCV MCH MCHC RDW Lymph % (Auto) Lymph # (Auto) Seg Neutrophils % Seg Neuts % (Manual) Lymphocytes % (Manual) Nucleated RBC % Seg Neutrophils # Seg Neutrophils # Man Lymphocytes # (Manual) D-Dimer ABG pH 7.328 L POC ABG pCO2 POC ABG pO2 ABG pO2 72.8 L 73.4 L ABG HCO3 31.0 H 34.0 H ABG O2 Saturation 93.5 L ABG Base Excess 3.5 H 7.7 H ABG Hemoglobin 13.3 L 12.1 L ABG Oxyhemoglobin ABG Sodium ABG Potassium ABG Chloride ABG Glucose Oxyhemoglobin 91.5 L 94.3 L Sodium Potassium Chloride Carbon Dioxide BUN Creatinine Glucose POC Glucose 155 H Lactic Acid Calcium Magnesium Ferritin Total Bilirubin Direct Bilirubin AST ALT Alkaline Phosphatase Lactate Dehydrogenase C-Reactive Protein Total Protein Albumin Triglycerides Arterial Blood Glucose Arterial Blood Ionized Calcium Urine WBC (Auto) Coronavirus (PCR) SARS-CoV-2 IgG Ab 05/24/20 05/24/20 05/24/20 09:33 12:21 17:52 WBC RBC Hgb Hct MCV MCH MCHC RDW Lymph % (Auto) Lymph # (Auto) Seg Neutrophils % Seg Neuts % (Manual) Lymphocytes % (Manual) Nucleated RBC % Seg Neutrophils # Seg Neutrophils # Man Lymphocytes # (Manual) D-Dimer ABG pH POC ABG pCO2 POC ABG pO2 ABG pO2 ABG HCO3 ABG O2 Saturation ABG Base Excess ABG Hemoglobin ABG Oxyhemoglobin ABG Sodium ABG Potassium ABG Chloride ABG Glucose Oxyhemoglobin Sodium Potassium Chloride Carbon Dioxide 34 H D BUN 28 H Creatinine 0.7 L Glucose 168 H POC Glucose 173 H 164 H Lactic Acid Calcium Magnesium Ferritin Total Bilirubin Direct Bilirubin AST ALT Alkaline Phosphatase Lactate Dehydrogenase C-Reactive Protein Total Protein Albumin Triglycerides Arterial Blood Glucose Arterial Blood Ionized Calcium Urine WBC (Auto) Coronavirus (PCR) SARS-CoV-2 IgG Ab 05/24/20 05/25/20 05/25/20 23:47 04:29 05:46 WBC RBC Hgb Hct MCV MCH MCHC RDW Lymph % (Auto) Lymph # (Auto) Seg Neutrophils % Seg Neuts % (Manual) Lymphocytes % (Manual) Nucleated RBC % Seg Neutrophils # Seg Neutrophils # Man Lymphocytes # (Manual) D-Dimer ABG pH POC ABG pCO2 68.6 H POC ABG pO2 ABG pO2 ABG HCO3 ABG O2 Saturation ABG Base Excess ABG Hemoglobin ABG Oxyhemoglobin ABG Sodium ABG Potassium 4.7 H ABG Chloride ABG Glucose 226 H Oxyhemoglobin Sodium Potassium Chloride Carbon Dioxide BUN Creatinine Glucose POC Glucose 171 H 201 H Lactic Acid Calcium Magnesium Ferritin Total Bilirubin Direct Bilirubin AST ALT Alkaline Phosphatase Lactate Dehydrogenase C-Reactive Protein Total Protein Albumin Triglycerides Arterial Blood Glucose 226 H Arterial Blood Ionized Calcium Urine WBC (Auto) Coronavirus (PCR) SARS-CoV-2 IgG Ab 05/25/20 05/25/20 05/25/20 08:37 08:37 12:38 WBC 12.0 H RBC 3.64 L Hgb Hct MCV 99 H MCH 33 H MCHC RDW Lymph % (Auto) Lymph # (Auto) Seg Neutrophils % Seg Neuts % (Manual) Lymphocytes % (Manual) Nucleated RBC % Seg Neutrophils # Seg Neutrophils # Man Lymphocytes # (Manual) D-Dimer ABG pH POC ABG pCO2 POC ABG pO2 ABG pO2 ABG HCO3 ABG O2 Saturation ABG Base Excess ABG Hemoglobin ABG Oxyhemoglobin ABG Sodium ABG Potassium ABG Chloride ABG Glucose Oxyhemoglobin Sodium Potassium Chloride 97.3 L Carbon Dioxide 35 H BUN 25 H Creatinine 0.7 L Glucose 191 H POC Glucose 182 H Lactic Acid Calcium Magnesium Ferritin Total Bilirubin Direct Bilirubin AST ALT Alkaline Phosphatase Lactate Dehydrogenase C-Reactive Protein Total Protein Albumin Triglycerides Arterial Blood Glucose Arterial Blood Ionized Calcium Urine WBC (Auto) Coronavirus (PCR) SARS-CoV-2 IgG Ab 05/25/20 05/26/20 05/26/20 18:16 00:06 04:50 WBC RBC Hgb Hct MCV MCH MCHC RDW Lymph % (Auto) Lymph # (Auto) Seg Neutrophils % Seg Neuts % (Manual) Lymphocytes % (Manual) Nucleated RBC % Seg Neutrophils # Seg Neutrophils # Man Lymphocytes # (Manual) D-Dimer ABG pH POC ABG pCO2 POC ABG pO2 ABG pO2 221.5 H ABG HCO3 40.4 H ABG O2 Saturation 99.3 H ABG Base Excess 12.8 H ABG Hemoglobin 10.4 L ABG Oxyhemoglobin ABG Sodium ABG Potassium ABG Chloride ABG Glucose Oxyhemoglobin Sodium Potassium Chloride Carbon Dioxide BUN Creatinine Glucose POC Glucose 176 H 152 H Lactic Acid Calcium Magnesium Ferritin Total Bilirubin Direct Bilirubin AST ALT Alkaline Phosphatase Lactate Dehydrogenase C-Reactive Protein Total Protein Albumin Triglycerides Arterial Blood Glucose Arterial Blood Ionized Calcium Urine WBC (Auto) Coronavirus (PCR) SARS-CoV-2 IgG Ab 05/26/20 05/26/20 05/26/20 06:11 07:51 07:51 WBC 13.4 H RBC 3.64 L Hgb Hct MCV 98 H MCH 33 H MCHC RDW Lymph % (Auto) Lymph # (Auto) Seg Neutrophils % Seg Neuts % (Manual) Lymphocytes % (Manual) Nucleated RBC % Seg Neutrophils # Seg Neutrophils # Man Lymphocytes # (Manual) D-Dimer ABG pH POC ABG pCO2 POC ABG pO2 ABG pO2 ABG HCO3 ABG O2 Saturation ABG Base Excess ABG Hemoglobin ABG Oxyhemoglobin ABG Sodium ABG Potassium ABG Chloride ABG Glucose Oxyhemoglobin Sodium Potassium Chloride 96.6 L Carbon Dioxide 39 H BUN 29 H Creatinine 0.7 L Glucose 174 H POC Glucose 165 H Lactic Acid Calcium Magnesium Ferritin Total Bilirubin Direct Bilirubin AST ALT Alkaline Phosphatase Lactate Dehydrogenase C-Reactive Protein Total Protein Albumin Triglycerides Arterial Blood Glucose Arterial Blood Ionized Calcium Urine WBC (Auto) Coronavirus (PCR) SARS-CoV-2 IgG Ab 05/26/20 05/27/20 05/27/20 23:23 03:43 05:29 WBC RBC Hgb Hct MCV MCH MCHC RDW Lymph % (Auto) Lymph # (Auto) Seg Neutrophils % Seg Neuts % (Manual) Lymphocytes % (Manual) Nucleated RBC % Seg Neutrophils # Seg Neutrophils # Man Lymphocytes # (Manual) D-Dimer ABG pH 7.480 H POC ABG pCO2 52.4 H POC ABG pO2 61.4 L ABG pO2 ABG HCO3 ABG O2 Saturation ABG Base Excess ABG Hemoglobin ABG Oxyhemoglobin ABG Sodium 134.9 L ABG Potassium ABG Chloride 95.0 L ABG Glucose 221 H Oxyhemoglobin Sodium Potassium Chloride Carbon Dioxide BUN Creatinine Glucose POC Glucose 169 H 227 H Lactic Acid Calcium Magnesium Ferritin Total Bilirubin Direct Bilirubin AST ALT Alkaline Phosphatase Lactate Dehydrogenase C-Reactive Protein Total Protein Albumin Triglycerides Arterial Blood Glucose 221 H Arterial Blood Ionized Calcium 4.5 L Urine WBC (Auto) Coronavirus (PCR) SARS-CoV-2 IgG Ab 05/27/20 05/27/20 05/27/20 07:19 12:18 13:50 WBC RBC Hgb Hct MCV MCH MCHC RDW Lymph % (Auto) Lymph # (Auto) Seg Neutrophils % Seg Neuts % (Manual) Lymphocytes % (Manual) Nucleated RBC % Seg Neutrophils # Seg Neutrophils # Man Lymphocytes # (Manual) D-Dimer ABG pH POC ABG pCO2 POC ABG pO2 ABG pO2 ABG HCO3 ABG O2 Saturation ABG Base Excess ABG Hemoglobin ABG Oxyhemoglobin ABG Sodium ABG Potassium ABG Chloride ABG Glucose Oxyhemoglobin Sodium Potassium Chloride Carbon Dioxide BUN Creatinine Glucose POC Glucose 114 H 148 H Lactic Acid Calcium Magnesium Ferritin Total Bilirubin Direct Bilirubin AST ALT Alkaline Phosphatase Lactate Dehydrogenase C-Reactive Protein Total Protein Albumin Triglycerides 247 H Arterial Blood Glucose Arterial Blood Ionized Calcium Urine WBC (Auto) Coronavirus (PCR) SARS-CoV-2 IgG Ab 05/28/20 05/28/20 05/28/20 00:13 04:16 05:22 WBC RBC Hgb Hct MCV MCH MCHC RDW Lymph % (Auto) Lymph # (Auto) Seg Neutrophils % Seg Neuts % (Manual) Lymphocytes % (Manual) Nucleated RBC % Seg Neutrophils # Seg Neutrophils # Man Lymphocytes # (Manual) D-Dimer ABG pH POC ABG pCO2 64.4 H POC ABG pO2 60.5 L ABG pO2 ABG HCO3 ABG O2 Saturation ABG Base Excess ABG Hemoglobin ABG Oxyhemoglobin ABG Sodium ABG Potassium ABG Chloride 95.0 L ABG Glucose 209 H Oxyhemoglobin Sodium Potassium Chloride Carbon Dioxide BUN Creatinine Glucose POC Glucose 155 H 186 H Lactic Acid Calcium Magnesium Ferritin Total Bilirubin Direct Bilirubin AST ALT Alkaline Phosphatase Lactate Dehydrogenase C-Reactive Protein Total Protein Albumin Triglycerides Arterial Blood Glucose 209 H Arterial Blood Ionized Calcium Urine WBC (Auto) Coronavirus (PCR) SARS-CoV-2 IgG Ab 05/28/20 05/28/20 05/29/20 12:45 17:39 00:37 WBC RBC Hgb Hct MCV MCH MCHC RDW Lymph % (Auto) Lymph # (Auto) Seg Neutrophils % Seg Neuts % (Manual) Lymphocytes % (Manual) Nucleated RBC % Seg Neutrophils # Seg Neutrophils # Man Lymphocytes # (Manual) D-Dimer ABG pH POC ABG pCO2 POC ABG pO2 ABG pO2 ABG HCO3 ABG O2 Saturation ABG Base Excess ABG Hemoglobin ABG Oxyhemoglobin ABG Sodium ABG Potassium ABG Chloride ABG Glucose Oxyhemoglobin Sodium Potassium Chloride Carbon Dioxide BUN Creatinine Glucose POC Glucose 143 H 164 H 221 H Lactic Acid Calcium Magnesium Ferritin Total Bilirubin Direct Bilirubin AST ALT Alkaline Phosphatase Lactate Dehydrogenase C-Reactive Protein Total Protein Albumin Triglycerides Arterial Blood Glucose Arterial Blood Ionized Calcium Urine WBC (Auto) Coronavirus (PCR) SARS-CoV-2 IgG Ab 05/29/20 05/29/20 05/29/20 04:15 05:33 12:34 WBC RBC Hgb Hct MCV MCH MCHC RDW Lymph % (Auto) Lymph # (Auto) Seg Neutrophils % Seg Neuts % (Manual) Lymphocytes % (Manual) Nucleated RBC % Seg Neutrophils # Seg Neutrophils # Man Lymphocytes # (Manual) D-Dimer ABG pH 7.463 H POC ABG pCO2 56.3 H POC ABG pO2 81.2 L ABG pO2 ABG HCO3 ABG O2 Saturation ABG Base Excess ABG Hemoglobin ABG Oxyhemoglobin ABG Sodium ABG Potassium ABG Chloride 96.0 L ABG Glucose 194 H Oxyhemoglobin Sodium Potassium Chloride Carbon Dioxide BUN Creatinine Glucose POC Glucose 133 H 221 H Lactic Acid Calcium Magnesium Ferritin Total Bilirubin Direct Bilirubin AST ALT Alkaline Phosphatase Lactate Dehydrogenase C-Reactive Protein Total Protein Albumin Triglycerides Arterial Blood Glucose 194 H Arterial Blood Ionized Calcium 4.5 L Urine WBC (Auto) Coronavirus (PCR) SARS-CoV-2 IgG Ab 05/29/20 05/30/20 05/30/20 18:07 00:12 05:38 WBC RBC Hgb Hct MCV MCH MCHC RDW Lymph % (Auto) Lymph # (Auto) Seg Neutrophils % Seg Neuts % (Manual) Lymphocytes % (Manual) Nucleated RBC % Seg Neutrophils # Seg Neutrophils # Man Lymphocytes # (Manual) D-Dimer ABG pH POC ABG pCO2 POC ABG pO2 ABG pO2 ABG HCO3 ABG O2 Saturation ABG Base Excess ABG Hemoglobin ABG Oxyhemoglobin ABG Sodium ABG Potassium ABG Chloride ABG Glucose Oxyhemoglobin Sodium Potassium Chloride Carbon Dioxide BUN Creatinine Glucose POC Glucose 162 H 190 H 208 H Lactic Acid Calcium Magnesium Ferritin Total Bilirubin Direct Bilirubin AST ALT Alkaline Phosphatase Lactate Dehydrogenase C-Reactive Protein Total Protein Albumin Triglycerides Arterial Blood Glucose Arterial Blood Ionized Calcium Urine WBC (Auto) Coronavirus (PCR) SARS-CoV-2 IgG Ab 05/30/20 05/30/20 05/30/20 09:30 11:35 11:54 WBC 12.4 H RBC 3.48 L Hgb 11.3 L Hct 34.6 L MCV 99 H MCH 33 H MCHC RDW Lymph % (Auto) Lymph # (Auto) Seg Neutrophils % Seg Neuts % (Manual) Lymphocytes % (Manual) Nucleated RBC % Seg Neutrophils # Seg Neutrophils # Man Lymphocytes # (Manual) D-Dimer ABG pH 7.455 H POC ABG pCO2 57.5 H POC ABG pO2 81.5 L ABG pO2 ABG HCO3 ABG O2 Saturation ABG Base Excess ABG Hemoglobin ABG Oxyhemoglobin ABG Sodium ABG Potassium ABG Chloride 96.0 L ABG Glucose 204 H Oxyhemoglobin Sodium Potassium Chloride Carbon Dioxide BUN Creatinine Glucose POC Glucose 183 H Lactic Acid Calcium Magnesium Ferritin Total Bilirubin Direct Bilirubin AST ALT Alkaline Phosphatase Lactate Dehydrogenase C-Reactive Protein Total Protein Albumin Triglycerides Arterial Blood Glucose 204 H Arterial Blood Ionized Calcium Urine WBC (Auto) Coronavirus (PCR) SARS-CoV-2 IgG Ab 05/30/20 05/31/20 05/31/20 18:01 00:10 03:22 WBC RBC Hgb Hct MCV MCH MCHC RDW Lymph % (Auto) Lymph # (Auto) Seg Neutrophils % Seg Neuts % (Manual) Lymphocytes % (Manual) Nucleated RBC % Seg Neutrophils # Seg Neutrophils # Man Lymphocytes # (Manual) D-Dimer ABG pH POC ABG pCO2 60.4 H POC ABG pO2 71.5 L ABG pO2 ABG HCO3 ABG O2 Saturation ABG Base Excess ABG Hemoglobin ABG Oxyhemoglobin ABG Sodium ABG Potassium ABG Chloride 96.0 L ABG Glucose 169 H Oxyhemoglobin Sodium Potassium Chloride Carbon Dioxide BUN Creatinine Glucose POC Glucose 184 H 135 H Lactic Acid Calcium Magnesium Ferritin Total Bilirubin Direct Bilirubin AST ALT Alkaline Phosphatase Lactate Dehydrogenase C-Reactive Protein Total Protein Albumin Triglycerides Arterial Blood Glucose 169 H Arterial Blood Ionized Calcium 4.5 L Urine WBC (Auto) Coronavirus (PCR) SARS-CoV-2 IgG Ab 05/31/20 05/31/20 05/31/20 05:24 11:18 14:41 WBC RBC Hgb Hct MCV MCH MCHC RDW Lymph % (Auto) Lymph # (Auto) Seg Neutrophils % Seg Neuts % (Manual) Lymphocytes % (Manual) Nucleated RBC % Seg Neutrophils # Seg Neutrophils # Man Lymphocytes # (Manual) D-Dimer ABG pH POC ABG pCO2 POC ABG pO2 ABG pO2 ABG HCO3 ABG O2 Saturation ABG Base Excess ABG Hemoglobin ABG Oxyhemoglobin ABG Sodium ABG Potassium ABG Chloride ABG Glucose Oxyhemoglobin Sodium Potassium Chloride 96.8 L Carbon Dioxide 37 H BUN 31 H Creatinine 0.6 L Glucose 213 H POC Glucose 164 H 208 H Lactic Acid Calcium Magnesium Ferritin Total Bilirubin Direct Bilirubin AST ALT Alkaline Phosphatase Lactate Dehydrogenase C-Reactive Protein Total Protein Albumin Triglycerides Arterial Blood Glucose Arterial Blood Ionized Calcium Urine WBC (Auto) Coronavirus (PCR) SARS-CoV-2 IgG Ab 05/31/20 05/31/20 06/01/20 17:37 23:47 03:48 WBC RBC Hgb Hct MCV MCH MCHC RDW Lymph % (Auto) Lymph # (Auto) Seg Neutrophils % Seg Neuts % (Manual) Lymphocytes % (Manual) Nucleated RBC % Seg Neutrophils # Seg Neutrophils # Man Lymphocytes # (Manual) D-Dimer ABG pH POC ABG pCO2 59.7 H POC ABG pO2 73.9 L ABG pO2 ABG HCO3 ABG O2 Saturation ABG Base Excess ABG Hemoglobin ABG Oxyhemoglobin ABG Sodium ABG Potassium ABG Chloride 95.0 L ABG Glucose 256 H Oxyhemoglobin Sodium Potassium Chloride Carbon Dioxide BUN Creatinine Glucose POC Glucose 168 H 178 H Lactic Acid Calcium Magnesium Ferritin Total Bilirubin Direct Bilirubin AST ALT Alkaline Phosphatase Lactate Dehydrogenase C-Reactive Protein Total Protein Albumin Triglycerides Arterial Blood Glucose 256 H Arterial Blood Ionized Calcium Urine WBC (Auto) Coronavirus (PCR) SARS-CoV-2 IgG Ab 06/01/20 06/01/20 06/01/20 05:01 07:47 07:47 WBC 14.4 H RBC 3.46 L Hgb 11.1 L Hct 34.3 L MCV 99 H MCH MCHC RDW Lymph % (Auto) Lymph # (Auto) Seg Neutrophils % Seg Neuts % (Manual) 86.0 H Lymphocytes % (Manual) 9.0 L Nucleated RBC % Seg Neutrophils # Seg Neutrophils # Man 12.4 H Lymphocytes # (Manual) D-Dimer ABG pH POC ABG pCO2 POC ABG pO2 ABG pO2 ABG HCO3 ABG O2 Saturation ABG Base Excess ABG Hemoglobin ABG Oxyhemoglobin ABG Sodium ABG Potassium ABG Chloride ABG Glucose Oxyhemoglobin Sodium Potassium Chloride Carbon Dioxide BUN Creatinine Glucose POC Glucose 197 H Lactic Acid Calcium Magnesium Ferritin Total Bilirubin Direct Bilirubin AST ALT Alkaline Phosphatase Lactate Dehydrogenase C-Reactive Protein Total Protein Albumin Triglycerides 244 H Arterial Blood Glucose Arterial Blood Ionized Calcium Urine WBC (Auto) Coronavirus (PCR) SARS-CoV-2 IgG Ab 06/01/20 06/01/20 06/01/20 07:47 11:46 18:15 WBC RBC Hgb Hct MCV MCH MCHC RDW Lymph % (Auto) Lymph # (Auto) Seg Neutrophils % Seg Neuts % (Manual) Lymphocytes % (Manual) Nucleated RBC % Seg Neutrophils # Seg Neutrophils # Man Lymphocytes # (Manual) D-Dimer ABG pH POC ABG pCO2 POC ABG pO2 ABG pO2 ABG HCO3 ABG O2 Saturation ABG Base Excess ABG Hemoglobin ABG Oxyhemoglobin ABG Sodium ABG Potassium ABG Chloride ABG Glucose Oxyhemoglobin Sodium Potassium Chloride 95.4 L Carbon Dioxide 35 H BUN 30 H Creatinine 0.5 L Glucose 214 H POC Glucose 181 H 221 H Lactic Acid Calcium Magnesium Ferritin Total Bilirubin Direct Bilirubin AST 54 H ALT 235 H Alkaline Phosphatase Lactate Dehydrogenase C-Reactive Protein Total Protein Albumin 2.9 L Triglycerides Arterial Blood Glucose Arterial Blood Ionized Calcium Urine WBC (Auto) Coronavirus (PCR) SARS-CoV-2 IgG Ab 06/01/20 06/02/20 06/02/20 23:12 04:00 05:31 WBC RBC Hgb Hct MCV MCH MCHC RDW Lymph % (Auto) Lymph # (Auto) Seg Neutrophils % Seg Neuts % (Manual) Lymphocytes % (Manual) Nucleated RBC % Seg Neutrophils # Seg Neutrophils # Man Lymphocytes # (Manual) D-Dimer ABG pH 7.465 H POC ABG pCO2 POC ABG pO2 ABG pO2 203.4 H ABG HCO3 41.2 H ABG O2 Saturation 99.3 H ABG Base Excess 15.1 H ABG Hemoglobin 11.5 L ABG Oxyhemoglobin ABG Sodium ABG Potassium ABG Chloride ABG Glucose Oxyhemoglobin Sodium Potassium Chloride Carbon Dioxide BUN Creatinine Glucose POC Glucose 197 H 184 H Lactic Acid Calcium Magnesium Ferritin Total Bilirubin Direct Bilirubin AST ALT Alkaline Phosphatase Lactate Dehydrogenase C-Reactive Protein Total Protein Albumin Triglycerides Arterial Blood Glucose Arterial Blood Ionized Calcium Urine WBC (Auto) Coronavirus (PCR) SARS-CoV-2 IgG Ab 06/02/20 06/02/20 06/02/20 11:49 18:06 23:00 WBC RBC Hgb Hct MCV MCH MCHC RDW Lymph % (Auto) Lymph # (Auto) Seg Neutrophils % Seg Neuts % (Manual) Lymphocytes % (Manual) Nucleated RBC % Seg Neutrophils # Seg Neutrophils # Man Lymphocytes # (Manual) D-Dimer ABG pH POC ABG pCO2 POC ABG pO2 ABG pO2 ABG HCO3 ABG O2 Saturation ABG Base Excess ABG Hemoglobin ABG Oxyhemoglobin ABG Sodium ABG Potassium ABG Chloride ABG Glucose Oxyhemoglobin Sodium Potassium Chloride Carbon Dioxide BUN Creatinine Glucose POC Glucose 195 H 177 H 228 H Lactic Acid Calcium Magnesium Ferritin Total Bilirubin Direct Bilirubin AST ALT Alkaline Phosphatase Lactate Dehydrogenase C-Reactive Protein Total Protein Albumin Triglycerides Arterial Blood Glucose Arterial Blood Ionized Calcium Urine WBC (Auto) Coronavirus (PCR) SARS-CoV-2 IgG Ab 06/03/20 06/03/20 06/03/20 03:58 05:19 12:21 WBC RBC Hgb Hct MCV MCH MCHC RDW Lymph % (Auto) Lymph # (Auto) Seg Neutrophils % Seg Neuts % (Manual) Lymphocytes % (Manual) Nucleated RBC % Seg Neutrophils # Seg Neutrophils # Man Lymphocytes # (Manual) D-Dimer ABG pH POC ABG pCO2 POC ABG pO2 ABG pO2 171.0 H ABG HCO3 42.8 H ABG O2 Saturation ABG Base Excess 15.6 H ABG Hemoglobin 12.3 L ABG Oxyhemoglobin ABG Sodium ABG Potassium ABG Chloride ABG Glucose Oxyhemoglobin Sodium Potassium Chloride Carbon Dioxide BUN Creatinine Glucose POC Glucose 122 H 207 H Lactic Acid Calcium Magnesium Ferritin Total Bilirubin Direct Bilirubin AST ALT Alkaline Phosphatase Lactate Dehydrogenase C-Reactive Protein Total Protein Albumin Triglycerides Arterial Blood Glucose Arterial Blood Ionized Calcium Urine WBC (Auto) Coronavirus (PCR) SARS-CoV-2 IgG Ab 06/03/20 06/03/20 06/04/20 17:27 23:50 03:55 WBC RBC Hgb Hct MCV MCH MCHC RDW Lymph % (Auto) Lymph # (Auto) Seg Neutrophils % Seg Neuts % (Manual) Lymphocytes % (Manual) Nucleated RBC % Seg Neutrophils # Seg Neutrophils # Man Lymphocytes # (Manual) D-Dimer ABG pH POC ABG pCO2 POC ABG pO2 ABG pO2 117.2 H ABG HCO3 42.4 H ABG O2 Saturation ABG Base Excess 15.3 H ABG Hemoglobin 10.5 L ABG Oxyhemoglobin ABG Sodium ABG Potassium ABG Chloride ABG Glucose Oxyhemoglobin Sodium Potassium Chloride Carbon Dioxide BUN Creatinine Glucose POC Glucose 157 H 214 H Lactic Acid Calcium Magnesium Ferritin Total Bilirubin Direct Bilirubin AST ALT Alkaline Phosphatase Lactate Dehydrogenase C-Reactive Protein Total Protein Albumin Triglycerides Arterial Blood Glucose Arterial Blood Ionized Calcium Urine WBC (Auto) Coronavirus (PCR) SARS-CoV-2 IgG Ab 06/04/20 06/04/20 06/04/20 05:49 11:41 17:30 WBC RBC Hgb Hct MCV MCH MCHC RDW Lymph % (Auto) Lymph # (Auto) Seg Neutrophils % Seg Neuts % (Manual) Lymphocytes % (Manual) Nucleated RBC % Seg Neutrophils # Seg Neutrophils # Man Lymphocytes # (Manual) D-Dimer ABG pH POC ABG pCO2 POC ABG pO2 ABG pO2 ABG HCO3 ABG O2 Saturation ABG Base Excess ABG Hemoglobin ABG Oxyhemoglobin ABG Sodium ABG Potassium ABG Chloride ABG Glucose Oxyhemoglobin Sodium Potassium Chloride Carbon Dioxide BUN Creatinine Glucose POC Glucose 149 H 233 H 156 H Lactic Acid Calcium Magnesium Ferritin Total Bilirubin Direct Bilirubin AST ALT Alkaline Phosphatase Lactate Dehydrogenase C-Reactive Protein Total Protein Albumin Triglycerides Arterial Blood Glucose Arterial Blood Ionized Calcium Urine WBC (Auto) Coronavirus (PCR) SARS-CoV-2 IgG Ab 06/04/20 06/04/20 06/04/20 19:01 20:53 23:41 WBC RBC 3.18 L Hgb 10.8 L Hct 31.8 L MCV 100 H MCH 34 H MCHC RDW Lymph % (Auto) Lymph # (Auto) Seg Neutrophils % Seg Neuts % (Manual) 86.0 H Lymphocytes % (Manual) 10.0 L Nucleated RBC % 1.0 H Seg Neutrophils # Seg Neutrophils # Man 8.5 H Lymphocytes # (Manual) 1.0 L D-Dimer ABG pH POC ABG pCO2 POC ABG pO2 ABG pO2 ABG HCO3 ABG O2 Saturation ABG Base Excess ABG Hemoglobin ABG Oxyhemoglobin ABG Sodium ABG Potassium ABG Chloride ABG Glucose Oxyhemoglobin Sodium Potassium 3.4 L D Chloride 96.5 L Carbon Dioxide 41 H* BUN 27 H Creatinine 0.5 L Glucose 173 H POC Glucose 217 H Lactic Acid Calcium Magnesium Ferritin Total Bilirubin Direct Bilirubin AST ALT Alkaline Phosphatase Lactate Dehydrogenase C-Reactive Protein Total Protein Albumin Triglycerides Arterial Blood Glucose Arterial Blood Ionized Calcium Urine WBC (Auto) Coronavirus (PCR) SARS-CoV-2 IgG Ab 06/05/20 06/05/20 06/05/20 06:05 11:54 12:35 WBC RBC Hgb Hct MCV MCH MCHC RDW Lymph % (Auto) Lymph # (Auto) Seg Neutrophils % Seg Neuts % (Manual) Lymphocytes % (Manual) Nucleated RBC % Seg Neutrophils # Seg Neutrophils # Man Lymphocytes # (Manual) D-Dimer ABG pH POC ABG pCO2 POC ABG pO2 ABG pO2 127.9 H ABG HCO3 41.1 H ABG O2 Saturation ABG Base Excess 13.0 H ABG Hemoglobin 13.4 L ABG Oxyhemoglobin ABG Sodium ABG Potassium ABG Chloride ABG Glucose Oxyhemoglobin Sodium Potassium Chloride Carbon Dioxide BUN Creatinine Glucose POC Glucose 137 H 211 H Lactic Acid Calcium Magnesium Ferritin Total Bilirubin Direct Bilirubin AST ALT Alkaline Phosphatase Lactate Dehydrogenase C-Reactive Protein Total Protein Albumin Triglycerides Arterial Blood Glucose Arterial Blood Ionized Calcium Urine WBC (Auto) Coronavirus (PCR) SARS-CoV-2 IgG Ab 06/05/20 06/05/20 06/06/20 17:03 23:49 04:42 WBC RBC Hgb Hct MCV MCH MCHC RDW Lymph % (Auto) Lymph # (Auto) Seg Neutrophils % Seg Neuts % (Manual) Lymphocytes % (Manual) Nucleated RBC % Seg Neutrophils # Seg Neutrophils # Man Lymphocytes # (Manual) D-Dimer ABG pH POC ABG pCO2 56.1 H POC ABG pO2 52.5 L ABG pO2 ABG HCO3 ABG O2 Saturation ABG Base Excess ABG Hemoglobin 11.7 L ABG Oxyhemoglobin ABG Sodium ABG Potassium 3.3 L ABG Chloride 95.0 L ABG Glucose 156 H Oxyhemoglobin Sodium Potassium Chloride Carbon Dioxide BUN Creatinine Glucose POC Glucose 159 H 194 H Lactic Acid Calcium Magnesium Ferritin Total Bilirubin Direct Bilirubin AST ALT Alkaline Phosphatase Lactate Dehydrogenase C-Reactive Protein Total Protein Albumin Triglycerides Arterial Blood Glucose 156 H Arterial Blood Ionized Calcium Urine WBC (Auto) Coronavirus (PCR) SARS-CoV-2 IgG Ab 06/06/20 06/06/20 06/06/20 05:57 12:06 17:38 WBC RBC Hgb Hct MCV MCH MCHC RDW Lymph % (Auto) Lymph # (Auto) Seg Neutrophils % Seg Neuts % (Manual) Lymphocytes % (Manual) Nucleated RBC % Seg Neutrophils # Seg Neutrophils # Man Lymphocytes # (Manual) D-Dimer ABG pH POC ABG pCO2 POC ABG pO2 ABG pO2 ABG HCO3 ABG O2 Saturation ABG Base Excess ABG Hemoglobin ABG Oxyhemoglobin ABG Sodium ABG Potassium ABG Chloride ABG Glucose Oxyhemoglobin Sodium Potassium Chloride Carbon Dioxide BUN Creatinine Glucose POC Glucose 144 H 230 H 162 H Lactic Acid Calcium Magnesium Ferritin Total Bilirubin Direct Bilirubin AST ALT Alkaline Phosphatase Lactate Dehydrogenase C-Reactive Protein Total Protein Albumin Triglycerides Arterial Blood Glucose Arterial Blood Ionized Calcium Urine WBC (Auto) Coronavirus (PCR) SARS-CoV-2 IgG Ab 06/06/20 06/07/20 06/07/20 23:50 04:34 06:03 WBC RBC Hgb Hct MCV MCH MCHC RDW Lymph % (Auto) Lymph # (Auto) Seg Neutrophils % Seg Neuts % (Manual) Lymphocytes % (Manual) Nucleated RBC % Seg Neutrophils # Seg Neutrophils # Man Lymphocytes # (Manual) D-Dimer ABG pH 7.511 H POC ABG pCO2 53.5 H POC ABG pO2 114.5 H ABG pO2 ABG HCO3 ABG O2 Saturation ABG Base Excess ABG Hemoglobin 9.4 L ABG Oxyhemoglobin ABG Sodium 134.5 L ABG Potassium ABG Chloride 94.0 L ABG Glucose 186 H Oxyhemoglobin Sodium Potassium Chloride Carbon Dioxide BUN Creatinine Glucose POC Glucose 181 H 155 H Lactic Acid Calcium Magnesium Ferritin Total Bilirubin Direct Bilirubin AST ALT Alkaline Phosphatase Lactate Dehydrogenase C-Reactive Protein Total Protein Albumin Triglycerides Arterial Blood Glucose 186 H Arterial Blood Ionized Calcium 4.5 L Urine WBC (Auto) Coronavirus (PCR) SARS-CoV-2 IgG Ab 06/07/20 06/07/20 06/07/20 13:41 14:58 14:58 WBC RBC 2.72 L Hgb 9.3 L Hct 27.2 L MCV 100 H MCH 34 H MCHC RDW Lymph % (Auto) Lymph # (Auto) Seg Neutrophils % Seg Neuts % (Manual) Lymphocytes % (Manual) Nucleated RBC % Seg Neutrophils # Seg Neutrophils # Man Lymphocytes # (Manual) D-Dimer ABG pH POC ABG pCO2 POC ABG pO2 ABG pO2 ABG HCO3 ABG O2 Saturation ABG Base Excess ABG Hemoglobin ABG Oxyhemoglobin ABG Sodium ABG Potassium ABG Chloride ABG Glucose Oxyhemoglobin Sodium Potassium Chloride 93.5 L Carbon Dioxide 39 H BUN 22 H Creatinine 0.4 L Glucose 188 H POC Glucose 201 H Lactic Acid Calcium Magnesium Ferritin Total Bilirubin Direct Bilirubin AST 61 H ALT 273 H Alkaline Phosphatase Lactate Dehydrogenase C-Reactive Protein Total Protein 5.9 L Albumin 2.7 L Triglycerides Arterial Blood Glucose Arterial Blood Ionized Calcium Urine WBC (Auto) Coronavirus (PCR) SARS-CoV-2 IgG Ab 06/07/20 06/08/20 06/08/20 23:18 05:31 12:07 WBC RBC Hgb Hct MCV MCH MCHC RDW Lymph % (Auto) Lymph # (Auto) Seg Neutrophils % Seg Neuts % (Manual) Lymphocytes % (Manual) Nucleated RBC % Seg Neutrophils # Seg Neutrophils # Man Lymphocytes # (Manual) D-Dimer ABG pH POC ABG pCO2 POC ABG pO2 ABG pO2 ABG HCO3 ABG O2 Saturation ABG Base Excess ABG Hemoglobin ABG Oxyhemoglobin ABG Sodium ABG Potassium ABG Chloride ABG Glucose Oxyhemoglobin Sodium Potassium Chloride Carbon Dioxide BUN Creatinine Glucose POC Glucose 214 H 129 H 179 H Lactic Acid Calcium Magnesium Ferritin Total Bilirubin Direct Bilirubin AST ALT Alkaline Phosphatase Lactate Dehydrogenase C-Reactive Protein Total Protein Albumin Triglycerides Arterial Blood Glucose Arterial Blood Ionized Calcium Urine WBC (Auto) Coronavirus (PCR) SARS-CoV-2 IgG Ab 06/08/20 06/08/20 06/09/20 18:18 23:35 05:42 WBC RBC Hgb Hct MCV MCH MCHC RDW Lymph % (Auto) Lymph # (Auto) Seg Neutrophils % Seg Neuts % (Manual) Lymphocytes % (Manual) Nucleated RBC % Seg Neutrophils # Seg Neutrophils # Man Lymphocytes # (Manual) D-Dimer ABG pH POC ABG pCO2 POC ABG pO2 ABG pO2 ABG HCO3 ABG O2 Saturation ABG Base Excess ABG Hemoglobin ABG Oxyhemoglobin ABG Sodium ABG Potassium ABG Chloride ABG Glucose Oxyhemoglobin Sodium Potassium Chloride Carbon Dioxide BUN Creatinine Glucose POC Glucose 172 H 177 H 137 H Lactic Acid Calcium Magnesium Ferritin Total Bilirubin Direct Bilirubin AST ALT Alkaline Phosphatase Lactate Dehydrogenase C-Reactive Protein Total Protein Albumin Triglycerides Arterial Blood Glucose Arterial Blood Ionized Calcium Urine WBC (Auto) Coronavirus (PCR) SARS-CoV-2 IgG Ab 06/09/20 06/09/20 06/09/20 06:20 07:55 07:55 WBC 12.4 H RBC 3.26 L Hgb 11.1 L Hct 33.4 L D MCV 102 H MCH 34 H MCHC RDW Lymph % (Auto) Lymph # (Auto) Seg Neutrophils % Seg Neuts % (Manual) Lymphocytes % (Manual) Nucleated RBC % Seg Neutrophils # Seg Neutrophils # Man Lymphocytes # (Manual) D-Dimer ABG pH 7.466 H POC ABG pCO2 50.7 H POC ABG pO2 53.0 L ABG pO2 ABG HCO3 ABG O2 Saturation ABG Base Excess ABG Hemoglobin ABG Oxyhemoglobin ABG Sodium ABG Potassium 2.9 L ABG Chloride 93.0 L ABG Glucose 138 H Oxyhemoglobin Sodium Potassium 3.0 L Chloride 92.3 L Carbon Dioxide 37 H BUN 21 H Creatinine 0.6 L Glucose 120 H POC Glucose Lactic Acid Calcium Magnesium Ferritin Total Bilirubin Direct Bilirubin AST ALT Alkaline Phosphatase Lactate Dehydrogenase C-Reactive Protein Total Protein Albumin Triglycerides Arterial Blood Glucose 138 H Arterial Blood Ionized Calcium 4.5 L Urine WBC (Auto) Coronavirus (PCR) SARS-CoV-2 IgG Ab 06/09/20 06/09/20 06/10/20 11:22 18:32 04:46 WBC RBC Hgb Hct MCV MCH MCHC RDW Lymph % (Auto) Lymph # (Auto) Seg Neutrophils % Seg Neuts % (Manual) Lymphocytes % (Manual) Nucleated RBC % Seg Neutrophils # Seg Neutrophils # Man Lymphocytes # (Manual) D-Dimer ABG pH 7.501 H POC ABG pCO2 POC ABG pO2 126.5 H ABG pO2 ABG HCO3 ABG O2 Saturation ABG Base Excess ABG Hemoglobin 10.3 L ABG Oxyhemoglobin ABG Sodium ABG Potassium ABG Chloride ABG Glucose 220 H Oxyhemoglobin Sodium Potassium Chloride Carbon Dioxide BUN Creatinine Glucose POC Glucose 117 H 121 H Lactic Acid Calcium Magnesium Ferritin Total Bilirubin Direct Bilirubin AST ALT Alkaline Phosphatase Lactate Dehydrogenase C-Reactive Protein Total Protein Albumin Triglycerides Arterial Blood Glucose 220 H Arterial Blood Ionized Calcium Urine WBC (Auto) Coronavirus (PCR) SARS-CoV-2 IgG Ab 06/10/20 06/10/20 06/10/20 05:30 09:38 12:03 WBC RBC Hgb Hct MCV MCH MCHC RDW Lymph % (Auto) Lymph # (Auto) Seg Neutrophils % Seg Neuts % (Manual) Lymphocytes % (Manual) Nucleated RBC % Seg Neutrophils # Seg Neutrophils # Man Lymphocytes # (Manual) D-Dimer ABG pH POC ABG pCO2 POC ABG pO2 ABG pO2 ABG HCO3 ABG O2 Saturation ABG Base Excess ABG Hemoglobin ABG Oxyhemoglobin ABG Sodium ABG Potassium ABG Chloride ABG Glucose Oxyhemoglobin Sodium Potassium Chloride Carbon Dioxide BUN Creatinine Glucose POC Glucose 181 H 204 H Lactic Acid Calcium Magnesium Ferritin Total Bilirubin Direct Bilirubin AST ALT Alkaline Phosphatase Lactate Dehydrogenase C-Reactive Protein Total Protein Albumin Triglycerides 738 H Arterial Blood Glucose Arterial Blood Ionized Calcium Urine WBC (Auto) Coronavirus (PCR) SARS-CoV-2 IgG Ab Chest x-ray: image reviewed (stable bilateral alveolar infiltrates) Allied health notes reviewed: nursing
[2020-06-10] MEDS: MIDAZOLAM 100 MG in SODIUM CHLORIDE 0.9% 80 ML IV SCH (20:51)
[2020-06-10] MEDS: POLYETHYLENE GLYCOL 3350 17 GM POWDER PO SCH (21:21)
[2020-06-11] MEDS: METOCLOPRAMIDE 10 MG/2 ML INJ IV SCH ×4 (03:01→20:11)
[2020-06-11] MEDS: fentaNYL DRIP Premix 2,000 MCG/100 ML BAG IV SCH ×5 (03:04→20:23)
[2020-06-11] MEDS: PROPOFOL 500 MG/50 ML IV SCH ×4 (03:05→21:46)
[2020-06-11] MEDS: INSULIN LISPRO 100 UNIT/ML VIAL 3 mL SUB-Q SCH ×3 (03:13→16:17)
--- NOTE | 2020-06-11 08:08 | Progress Note ---
Assessment and Plan Assessment and Plan Patient intubated last night because of persistent hypoxia --Elevated D-dimers; on full dose anticoagulation However ID requested to get CTA chest, patient is unstable to go for CT As he is requiring high flow oxygen. -- Acute hypoxemic respiratory failure; Patient intubated and on vent support --Elevated D-dimers; check CTA to rule out PE Lower extremity venous Doppler to rule out DVT Patient is already on full dose anticoagulation per COVID-19 protocol -- Novel coronavirus infection with Bilateral pneumonia Coronavirus protocol: IV steroid therapy, IV remdesivir, isolation precautions, contact precautions, prone positioning while in bed, pulmonary toilet. consulted ID --Severe sepsis, due to COVID 19 PNA cont to treat for COVID -- Acute kidney injury (SEN) , likely vasomotor nephropathy Resolved, IV fluids, avoid nephrotoxins -- Alcohol dependence; no episodes of withdrawal symptoms Thiamine, folic acid, multivitamin, CIWA protocol. -- Elevated liver function tests Suspected secondary to alcoholic liver disease. Supportive care, alcohol cessation, patient counseled. -- DVT prophylaxis prophylactic AC with lovenox for elevated D-dimer We will closely monitor patient and adjust management as needed Patient has severe Covid pneumonia, severe hypoxia Critically ill very poor prognosis Full CODE STATUS The high probability of a clinically significant, sudden or life threatening deterioration of the [Covid pneumonia, ID, respiratory, liver] system(s) required my full and direct attention, intervention and personal management. The aggregate critical care time was [32] minutes. This time is in addition to time spent performing reported procedures but includes the following: [x] Data Review and interpretation [x] Patient assessment and monitoring of vital signs [x] Documentation [x] Medication orders and management. Subjective Date of service: 06/10/20 Principal diagnosis: Ac hypoxemic resp failure; COVID-19; Severe Sepsis; Shaggy PNA; Alcohol Abuse Interval history: Brief history; 50 YO Male with Obesity, ETOH Dependence presents to ED for evaluation for shortness of breath, generalized weakness, fatigue, malaise, body aches, decreased exercise tolerance over the past 5 days. EMS was notified and upon arrival the patient was found to be in distress with a pulse oximetry of 76% on room air as well as fever to 103 F. In the ER chest x-ray and was found to have bilateral pneumonia. Patient admitted to medical floor and initiated on pneumonia protocol as well as COVID-19 protocol. Patient severe Covid pneumonia, with persistent severe hypoxemia requiring very high flow oxygen Today on continuous BiPAP, patient is in mild distress, critically ill with very poor prognosis. Patient was on high flow oxygen but could not be maintained above 90 hence patient intubated last night electively 05/17/2020; patient with severe COVID-19 pneumonia, in isolation room Patient is on high flow oxygen, and BiPAP 05/18/20; patient feels slightly better still hypoxic, requiring continuous high flow oxygen and BiPAP Respiratory team trying to wean 05/19/20; patient is severely hypoxemic requiring continuous BiPAP today, complains of generalized weakness Trying to wean off high flow oxygen, patient is in isolation 05/20/2020; patient remains on high flow oxygen/BiPAP/100% nonrebreather. Still is hypoxemic Has sinus tachycardia patient in mild distress Wean off high flow oxygen as tolerated, pulmonary critical following 05/21/20; patient is critically ill, on continuous BiPAP remains hypoxemic in mild distress Patient has severe Covid Pneumonia with persistent hypoxemia and poor prognosis 05/22/2020 Patient was intubated last night because of persistent hypoxemia Objective - Constitutional Vitals: Vital Signs - 12hr 06/10/20 06/10/20 06/10/20 20:24 21:00 22:00 Temperature Pulse Rate 119 H 108 H 98 H Pulse Rate [ From Monitor] Pulse Rate [ Right Dorsalis Pedis] Respiratory 30 H 30 H Rate Blood Pressure 101/64 104/66 103/60 O2 Sat by Pulse 97 93 Oximetry 06/10/20 06/10/20 06/10/20 23:00 23:25 23:41 Temperature Pulse Rate 84 86 99 H Pulse Rate [ 98 H From Monitor] Pulse Rate [ Right Dorsalis Pedis] Respiratory 30 H 30 H 30 H Rate Blood Pressure 117/77 109/66 O2 Sat by Pulse 95 97 100 Oximetry 06/10/20 06/11/20 06/11/20 23:52 00:00 01:00 Temperature 97.4 F L Pulse Rate 88 86 81 Pulse Rate [ From Monitor] Pulse Rate [ Right Dorsalis Pedis] Respiratory 30 H 30 H Rate Blood Pressure 110/69 110/70 114/68 O2 Sat by Pulse 96 93 Oximetry 06/11/20 06/11/20 06/11/20 02:00 03:00 04:00 Temperature 97.5 F L Pulse Rate 77 77 74 Pulse Rate [ 97 H From Monitor] Pulse Rate [ 88 Right Dorsalis Pedis] Respiratory 30 H 30 H 30 H Rate Blood Pressure 112/68 117/70 116/67 O2 Sat by Pulse 94 94 93 Oximetry 06/11/20 06/11/20 04:25 05:00 Temperature Pulse Rate 67 124 H Pulse Rate [ From Monitor] Pulse Rate [ Right Dorsalis Pedis] Respiratory 27 H Rate Blood Pressure 118/69 117/70 O2 Sat by Pulse 96 98 Oximetry General appearance: Present: no acute distress, well-nourished - EENT Eyes: PERRL, EOM intact ENT: hearing intact, clear oral mucosa Ears: bilateral: normal - Neck Neck: supple, normal ROM - Respiratory Respiratory effort: normal Respiratory: bilateral: CTA - Breasts Breasts: normal - Cardiovascular Rhythm: regular Heart Sounds: Present: S1 & S2. Absent: gallop, rub Extremities: pulses intact, No edema, normal color, Full ROM - Gastrointestinal General gastrointestinal: Present: soft, non-tender, non-distended, normal bowel sounds - Genitourinary Male genitourinary: normal - Integumentary Integumentary: clear, warm, dry - Musculoskeletal Musculoskeletal: 1, strength equal bilaterally - Neurologic Neurologic: moves all extremities - Psychiatric Psychiatric: memory intact, appropriate mood/affect, intact judgment & insight - Labs CBC & Chem 7: 06/09/20 07:55 06/09/20 07:55 Labs: Abnormal lab results 06/10/20 06/10/20 06/10/20 Range/Units 09:38 12:03 17:17 ABG pH (7.320-7.450) POC ABG pO2 (83-108) mmHg ABG Hemoglobin (12.0-17.5) ABG Sodium (136.0-145.0) mmol/L ABG Glucose (65-95) mg/dL POC Glucose 204 H 156 H (70-105) mg/dL Triglycerides 738 H (2-149) mg/dL Arterial Blood Glucose (65-95) mg/dL 06/11/20 06/11/20 06/11/20 Range/Units 00:04 04:38 05:21 ABG pH 7.479 H (7.320-7.450) POC ABG pO2 76.7 L (83-108) mmHg ABG Hemoglobin 9.8 L (12.0-17.5) ABG Sodium 135.8 L (136.0-145.0) mmol/L ABG Glucose 238 H (65-95) mg/dL POC Glucose 178 H 215 H (70-105) mg/dL Triglycerides (2-149) mg/dL Arterial Blood Glucose 238 H (65-95) mg/dL 06/11/20 Range/Units 06:52 ABG pH (7.320-7.450) POC ABG pO2 (83-108) mmHg ABG Hemoglobin (12.0-17.5) ABG Sodium (136.0-145.0) mmol/L ABG Glucose (65-95) mg/dL POC Glucose (70-105) mg/dL Triglycerides 331 H (2-149) mg/dL Arterial Blood Glucose (65-95) mg/dL
[2020-06-11] MEDS: DOCUSATE SODIUM 100 MG/10 ML ORAL LIQD PO SCH ×2 (09:08→21:47)
[2020-06-11] MEDS: FAMOTIDINE 20 MG TAB PO SCH ×2 (09:08→21:35)
[2020-06-11] MEDS: FOLIC ACID 1 MG TAB PO SCH (09:09)
[2020-06-11] MEDS: SENNOSIDES 8.6 MG TAB PO SCH ×2 (09:09→21:46)
[2020-06-11] MEDS: methylPREDNISolone Sod Succinate 40 MG/1 ML INJ IV SCH (09:30)
[2020-06-11] MEDS: ENOXAPARIN 120 MG/0.8 ML INJ SUB-Q SCH ×2 (09:30→21:48)
[2020-06-11] MEDS: QUEtiapine 100 MG TAB PO SCH ×2 (09:31→21:35)
[2020-06-11] MEDS: MIDAZOLAM 100 MG in SODIUM CHLORIDE 0.9% 80 ML IV SCH (15:03)
[2020-06-11] MEDS: NORepinephrine/NS 4 MG-250 ML 4 MG/250 ML BAG IV SCH ×2 (15:04→20:22)
--- NOTE | 2020-06-11 15:34 | Progress Note ---
Assessment and Plan Acute hypoxemic respiratory failure due to COVID-19 Severe Sepsis Bilateral pneumonia Acute kidney injury (SEN) with acute tubular necrosis (ATN) Alcohol dependence Elevated liver function tests - repeat triglyceride level down to 331; will trend prn - keep peep at 14 and repeat ABG in am - continue Reglan 5mg IV q6h - continue to wean Levophed for target MAP > 65 mmHg (@ 10 sergio's/min) - continue to wean supplemental oxygen for target O2 sat's > 92% acutely - prn lab work and address electrolytes - ETT day # 21; he will need a tracheostomy once numbers better - continue care as below otherwise; - continue Daily SAT and SBT assessment as tolerated - VAP bundle addressed - continue lung protective strategies - continue bronchodilators with pulmonary hygiene per RT - wean per pulmonary driven protocols otherwise - accuchecks with glycemic control per SSI (While critically ill target blood glucose of 140-180 mg/dL; avoid hypoglycemia) - sedation prn for target RASS -1 to -2 - continue enteral nutritional support at goal rate as tolerated - continue airborne and contact isolation - follow repeat COVID-19 testing - continue Zinc & Vit C supplementaion - continue systemic steroids for Asthma / severe COVID infection - Prone positioning as tolerated - continue empiric full dose anticoagulation re: elevated d-dimers / hypercoagulable state - NOT a candidate for COVID convalescent plasma - continue systemic steroids X >/= 10 days - complete remdesivir dosing (total 5 days) - Monitor liver function test on Remdesivir - trend inflammatory markers - ferritin, Ddimer, CRP, LDH; to aid clinical decision making - empiric AB's coverage per ID rec's otherwise - accuchecks with glycemic control per SSI (While critically ill target blood glucose of 140-180 mg/dL; avoid hypoglycemia) - avoid nephrotoxins, renally dose all medications - continue to avoid benzodiazepine's, reduce the possibility of delirium - prn analgesia per CPOT score - Maintenance of sleep-wake cycle, avoid delirium - continue to avoid benzodiazepine's, reduce the possibility of delirium - aspiration precautions - G.I. & VTE prophylaxis - PT/OT/ROM exercises - continue mobility protocols for pressure ulcer prophylaxis - Monitor hemodynamics closely - continue other care per attending / other consultants - discharge planning ongoing concurrently .... Re-evaluate in am & prn CONDITION: CRITICAL PROGNOSIS: GUARDED CODE STATUS: FULL CODE The high probability of a clinically significant, sudden or life-threatening deterioration of the [respiratory, cardiovascular, hematologic & neurologic] system(s) required my full and direct attention, intervention and personal management. The aggregate critical care time was [37] minutes without overlap. Time includes spent on; [x] Data Review and interpretation [x] Patient assessment and monitoring of vital signs [x] Documentation [x] Medication orders and management Subjective Date of service: 06/11/20 Principal diagnosis: Ac hypoxemic resp failure; COVID-19; Severe Sepsis; Shaggy PNA; Alcohol Abuse Interval history: Patient is seen today for: Acute hypoxemic respiratory failure due to COVID-19; Severe Sepsis; Bilateral pneumonia; Alcohol dependence; Elevated liver function tests Seen and examined at bedside; 24hour events reviewed; nursing and respiratory care staff consulted; no adverse overnight events reported to me; resting in bed; remains on MVS; FiO2 down to 40% but peep still at 14; no N/V/F/C Objective Vital Signs - 12hr 06/11/20 06/11/20 06/11/20 04:00 04:25 05:00 Temperature 97.5 F L Pulse Rate 74 67 124 H Pulse Rate [ 97 H From Monitor] Pulse Rate [ 88 Right Dorsalis Pedis] Respiratory 30 H 27 H Rate Blood Pressure 116/67 118/69 117/70 O2 Sat by Pulse 93 96 98 Oximetry 06/11/20 06/11/20 06/11/20 06:00 07:00 08:00 Temperature 98.3 F Pulse Rate 92 H 62 100 H Pulse Rate [ 93 H From Monitor] Pulse Rate [ 93 H Right Dorsalis Pedis] Respiratory 30 H 30 H 30 H Rate Blood Pressure 111/68 117/74 106/65 O2 Sat by Pulse 95 95 96 Oximetry 06/11/20 06/11/20 06/11/20 09:00 10:00 11:50 Temperature Pulse Rate 65 110 H 64 Pulse Rate [ From Monitor] Pulse Rate [ Right Dorsalis Pedis] Respiratory 30 H 30 H Rate Blood Pressure 114/68 104/65 87/50 O2 Sat by Pulse 96 92 98 Oximetry 06/11/20 12:00 Temperature 98.0 F Pulse Rate Pulse Rate [ From Monitor] Pulse Rate [ Right Dorsalis Pedis] Respiratory Rate Blood Pressure O2 Sat by Pulse Oximetry Constitutional: no acute distress, asleep, other (middle aged obese male with normal respiratory effort at rest on MVS) Eyes: non-icteric ENT: oropharynx moist, other (ETT 24 cm CHILO) Neck: supple, no JVD Effort: normal Ascultation: Bilateral: diminished breath sounds, rhonchi Percussion: Bilateral: not dull Cardiovascular: regular rate and rhythm Gastrointestinal: normoactive bowel sounds, soft, non-tender, non-distended (protuberant) Integumentary: normal Extremities: no cyanosis, no edema, pulses normal, no ischemia or petechiae Neurologic: non-focal exam, pupils equal and round, CN II-XII normal, motor strength normal and, other (sedated) Psychiatric: other (sedated) CBC and BMP: 06/09/20 07:55 06/09/20 07:55 ABG, PT/INR, D-dimer: ABG ABG pH 7.479 (7.320-7.450) H 06/11/20 04:38 POC ABG pCO2 46.6 mmHg (32.0-48.0) 06/11/20 04:38 ABG pCO2 69.6 mm Hg 06/05/20 12:35 POC ABG pO2 76.7 mmHg (83-108) L 06/11/20 04:38 ABG pO2 127.9 mm Hg (80.0-90.0) H 06/05/20 12:35 POC ABG HCO3 33.8 06/11/20 04:38 ABG O2 Saturation 98.3 % (95.0-99.0) 06/05/20 12:35 PT/INR, D-dimer D-Dimer 1887.82 ng/mlDDU (0-234) H 05/20/20 08:16 Abnormal lab findings: Abnormal Labs 05/09/20 05/09/20 05/09/20 12:59 12:59 12:59 WBC 11.8 H RBC Hgb Hct MCV 96 H MCH 34 H MCHC 35 H RDW Lymph % (Auto) 6.9 L Lymph # (Auto) 0.8 L Seg Neutrophils % 87.5 H Seg Neuts % (Manual) Lymphocytes % (Manual) Nucleated RBC % Seg Neutrophils # 10.3 H Seg Neutrophils # Man Lymphocytes # (Manual) D-Dimer ABG pH POC ABG pCO2 POC ABG pO2 ABG pO2 ABG HCO3 ABG O2 Saturation ABG Base Excess ABG Hemoglobin ABG Oxyhemoglobin ABG Sodium ABG Potassium ABG Chloride ABG Glucose Oxyhemoglobin Sodium 130 L Potassium 3.5 L Chloride 86.4 L Carbon Dioxide BUN 33 H Creatinine 2.3 H Glucose 156 H POC Glucose Lactic Acid Calcium Magnesium Ferritin Total Bilirubin 3.40 H Direct Bilirubin 1.7 H AST 385 H ALT 134 H Alkaline Phosphatase Lactate Dehydrogenase C-Reactive Protein Total Protein Albumin 3.0 L Triglycerides Arterial Blood Glucose Arterial Blood Ionized Calcium Urine WBC (Auto) Coronavirus (PCR) SARS-CoV-2 IgG Ab 05/09/20 05/09/20 05/09/20 12:59 12:59 12:59 WBC RBC Hgb Hct MCV MCH MCHC RDW Lymph % (Auto) Lymph # (Auto) Seg Neutrophils % Seg Neuts % (Manual) Lymphocytes % (Manual) Nucleated RBC % Seg Neutrophils # Seg Neutrophils # Man Lymphocytes # (Manual) D-Dimer 3242.51 H ABG pH POC ABG pCO2 POC ABG pO2 ABG pO2 ABG HCO3 ABG O2 Saturation ABG Base Excess ABG Hemoglobin ABG Oxyhemoglobin ABG Sodium ABG Potassium ABG Chloride ABG Glucose Oxyhemoglobin Sodium Potassium Chloride Carbon Dioxide BUN Creatinine Glucose 158 H POC Glucose Lactic Acid 3.50 H* Calcium Magnesium Ferritin Total Bilirubin Direct Bilirubin AST ALT Alkaline Phosphatase Lactate Dehydrogenase 2166 H C-Reactive Protein 39.00 H Total Protein Albumin Triglycerides Arterial Blood Glucose Arterial Blood Ionized Calcium Urine WBC (Auto) Coronavirus (PCR) SARS-CoV-2 IgG Ab 05/09/20 05/09/20 05/09/20 12:59 14:20 14:20 WBC RBC Hgb Hct MCV MCH MCHC RDW Lymph % (Auto) Lymph # (Auto) Seg Neutrophils % Seg Neuts % (Manual) Lymphocytes % (Manual) Nucleated RBC % Seg Neutrophils # Seg Neutrophils # Man Lymphocytes # (Manual) D-Dimer 2861.78 H ABG pH POC ABG pCO2 POC ABG pO2 ABG pO2 ABG HCO3 ABG O2 Saturation ABG Base Excess ABG Hemoglobin ABG Oxyhemoglobin ABG Sodium ABG Potassium ABG Chloride ABG Glucose Oxyhemoglobin Sodium Potassium Chloride Carbon Dioxide BUN Creatinine Glucose POC Glucose Lactic Acid 2.20 H* Calcium Magnesium Ferritin 01527.0 H Total Bilirubin Direct Bilirubin AST ALT Alkaline Phosphatase Lactate Dehydrogenase C-Reactive Protein Total Protein Albumin Triglycerides Arterial Blood Glucose Arterial Blood Ionized Calcium Urine WBC (Auto) Coronavirus (PCR) SARS-CoV-2 IgG Ab 05/09/20 05/09/20 05/09/20 14:20 14:20 15:56 WBC RBC Hgb Hct MCV MCH MCHC RDW Lymph % (Auto) Lymph # (Auto) Seg Neutrophils % Seg Neuts % (Manual) Lymphocytes % (Manual) Nucleated RBC % Seg Neutrophils # Seg Neutrophils # Man Lymphocytes # (Manual) D-Dimer ABG pH POC ABG pCO2 POC ABG pO2 57.3 L ABG pO2 ABG HCO3 ABG O2 Saturation ABG Base Excess ABG Hemoglobin ABG Oxyhemoglobin 86.3 L ABG Sodium 129.9 L ABG Potassium ABG Chloride ABG Glucose 146 H Oxyhemoglobin Sodium Potassium Chloride Carbon Dioxide BUN Creatinine Glucose 143 H POC Glucose Lactic Acid Calcium Magnesium Ferritin 40634.0 H Total Bilirubin Direct Bilirubin AST ALT Alkaline Phosphatase Lactate Dehydrogenase 1953 H C-Reactive Protein 33.50 H Total Protein Albumin Triglycerides Arterial Blood Glucose 146 H Arterial Blood Ionized Calcium 3.9 L Urine WBC (Auto) Coronavirus (PCR) SARS-CoV-2 IgG Ab 05/10/20 05/10/20 05/10/20 10:32 10:32 18:50 WBC 15.4 H RBC Hgb Hct MCV 97 H MCH 33 H MCHC RDW 13.1 L Lymph % (Auto) Lymph # (Auto) Seg Neutrophils % Seg Neuts % (Manual) 89.0 H Lymphocytes % (Manual) 8.0 L Nucleated RBC % Seg Neutrophils # Seg Neutrophils # Man 13.7 H Lymphocytes # (Manual) D-Dimer ABG pH POC ABG pCO2 POC ABG pO2 ABG pO2 ABG HCO3 ABG O2 Saturation ABG Base Excess ABG Hemoglobin ABG Oxyhemoglobin ABG Sodium ABG Potassium ABG Chloride ABG Glucose Oxyhemoglobin Sodium 136 L Potassium Chloride 97.4 L Carbon Dioxide BUN 37 H Creatinine 1.7 H Glucose 209 H POC Glucose Lactic Acid Calcium Magnesium Ferritin > 2000.0 H Total Bilirubin Direct Bilirubin AST ALT Alkaline Phosphatase Lactate Dehydrogenase C-Reactive Protein Total Protein Albumin Triglycerides Arterial Blood Glucose Arterial Blood Ionized Calcium Urine WBC (Auto) Coronavirus (PCR) SARS-CoV-2 IgG Ab 05/10/20 05/10/20 05/10/20 18:50 19:00 Unknown WBC RBC Hgb Hct MCV MCH MCHC RDW Lymph % (Auto) Lymph # (Auto) Seg Neutrophils % Seg Neuts % (Manual) Lymphocytes % (Manual) Nucleated RBC % Seg Neutrophils # Seg Neutrophils # Man Lymphocytes # (Manual) D-Dimer > 90371 H ABG pH POC ABG pCO2 POC ABG pO2 ABG pO2 ABG HCO3 ABG O2 Saturation ABG Base Excess ABG Hemoglobin ABG Oxyhemoglobin ABG Sodium ABG Potassium ABG Chloride ABG Glucose Oxyhemoglobin Sodium Potassium Chloride Carbon Dioxide BUN Creatinine Glucose POC Glucose Lactic Acid Calcium Magnesium Ferritin Total Bilirubin Direct Bilirubin AST ALT Alkaline Phosphatase Lactate Dehydrogenase 1879 H C-Reactive Protein 24.80 H Total Protein Albumin Triglycerides Arterial Blood Glucose Arterial Blood Ionized Calcium Urine WBC (Auto) 11.0 H Coronavirus (PCR) SARS-CoV-2 IgG Ab 05/10/20 05/11/20 05/11/20 Unknown 07:30 07:30 WBC RBC Hgb Hct MCV MCH MCHC RDW Lymph % (Auto) Lymph # (Auto) Seg Neutrophils % Seg Neuts % (Manual) Lymphocytes % (Manual) Nucleated RBC % Seg Neutrophils # Seg Neutrophils # Man Lymphocytes # (Manual) D-Dimer > 2000 H ABG pH POC ABG pCO2 POC ABG pO2 ABG pO2 ABG HCO3 ABG O2 Saturation ABG Base Excess ABG Hemoglobin ABG Oxyhemoglobin ABG Sodium ABG Potassium ABG Chloride ABG Glucose Oxyhemoglobin Sodium Potassium Chloride 96.3 L Carbon Dioxide BUN 36 H Creatinine Glucose 161 H POC Glucose Lactic Acid Calcium 8.3 L Magnesium Ferritin Total Bilirubin 1.50 H Direct Bilirubin 0.6 H AST 178 H ALT 111 H Alkaline Phosphatase Lactate Dehydrogenase C-Reactive Protein Total Protein Albumin 3.0 L Triglycerides Arterial Blood Glucose Arterial Blood Ionized Calcium Urine WBC (Auto) Coronavirus (PCR) Positive A SARS-CoV-2 IgG Ab 05/11/20 05/11/20 05/11/20 07:30 07:30 07:30 WBC RBC Hgb Hct MCV MCH MCHC RDW Lymph % (Auto) Lymph # (Auto) Seg Neutrophils % Seg Neuts % (Manual) Lymphocytes % (Manual) Nucleated RBC % Seg Neutrophils # Seg Neutrophils # Man Lymphocytes # (Manual) D-Dimer ABG pH POC ABG pCO2 POC ABG pO2 ABG pO2 ABG HCO3 ABG O2 Saturation ABG Base Excess ABG Hemoglobin ABG Oxyhemoglobin ABG Sodium ABG Potassium ABG Chloride ABG Glucose Oxyhemoglobin Sodium Potassium Chloride Carbon Dioxide BUN Creatinine Glucose POC Glucose Lactic Acid Calcium Magnesium Ferritin 22602.0 H Total Bilirubin Direct Bilirubin AST ALT Alkaline Phosphatase Lactate Dehydrogenase 1523 H C-Reactive Protein 12.90 H Total Protein Albumin Triglycerides Arterial Blood Glucose Arterial Blood Ionized Calcium Urine WBC (Auto) Coronavirus (PCR) SARS-CoV-2 IgG Ab Reactive A 05/13/20 05/13/20 05/15/20 05:20 05:20 08:15 WBC RBC Hgb Hct MCV MCH MCHC RDW Lymph % (Auto) Lymph # (Auto) Seg Neutrophils % Seg Neuts % (Manual) Lymphocytes % (Manual) Nucleated RBC % Seg Neutrophils # Seg Neutrophils # Man Lymphocytes # (Manual) D-Dimer > 64499 H 5318.28 H ABG pH POC ABG pCO2 POC ABG pO2 ABG pO2 ABG HCO3 ABG O2 Saturation ABG Base Excess ABG Hemoglobin ABG Oxyhemoglobin ABG Sodium ABG Potassium ABG Chloride ABG Glucose Oxyhemoglobin Sodium Potassium Chloride Carbon Dioxide 32 H BUN 30 H Creatinine Glucose 156 H POC Glucose Lactic Acid Calcium Magnesium 2.60 H Ferritin Total Bilirubin 1.40 H Direct Bilirubin AST 121 H ALT 119 H Alkaline Phosphatase Lactate Dehydrogenase 957 H C-Reactive Protein 4.00 H Total Protein Albumin 3.0 L Triglycerides Arterial Blood Glucose Arterial Blood Ionized Calcium Urine WBC (Auto) Coronavirus (PCR) SARS-CoV-2 IgG Ab 05/15/20 05/15/20 05/15/20 08:15 08:15 08:15 WBC 12.4 H RBC Hgb Hct MCV 98 H MCH 33 H MCHC RDW Lymph % (Auto) 9.7 L Lymph # (Auto) Seg Neutrophils % 86.8 H Seg Neuts % (Manual) Lymphocytes % (Manual) Nucleated RBC % Seg Neutrophils # 10.8 H Seg Neutrophils # Man Lymphocytes # (Manual) D-Dimer ABG pH POC ABG pCO2 POC ABG pO2 ABG pO2 ABG HCO3 ABG O2 Saturation ABG Base Excess ABG Hemoglobin ABG Oxyhemoglobin ABG Sodium ABG Potassium ABG Chloride ABG Glucose Oxyhemoglobin Sodium Potassium Chloride 94.8 L Carbon Dioxide 32 H BUN 22 H Creatinine Glucose 115 H POC Glucose Lactic Acid Calcium 8.3 L Magnesium Ferritin 2494.0 H Total Bilirubin Direct Bilirubin AST 73 H ALT 121 H Alkaline Phosphatase Lactate Dehydrogenase 835 H C-Reactive Protein 3.40 H Total Protein 6.1 L Albumin 3.0 L Triglycerides Arterial Blood Glucose Arterial Blood Ionized Calcium Urine WBC (Auto) Coronavirus (PCR) SARS-CoV-2 IgG Ab 05/17/20 05/17/20 05/17/20 05:50 05:50 05:50 WBC RBC Hgb Hct MCV MCH MCHC RDW Lymph % (Auto) Lymph # (Auto) Seg Neutrophils % Seg Neuts % (Manual) Lymphocytes % (Manual) Nucleated RBC % Seg Neutrophils # Seg Neutrophils # Man Lymphocytes # (Manual) D-Dimer 2911.42 H ABG pH POC ABG pCO2 POC ABG pO2 ABG pO2 ABG HCO3 ABG O2 Saturation ABG Base Excess ABG Hemoglobin ABG Oxyhemoglobin ABG Sodium ABG Potassium ABG Chloride ABG Glucose Oxyhemoglobin Sodium 136 L Potassium Chloride 96.0 L Carbon Dioxide 34 H BUN 22 H Creatinine Glucose 140 H POC Glucose Lactic Acid Calcium Magnesium Ferritin 2082.0 H Total Bilirubin Direct Bilirubin AST ALT 75 H Alkaline Phosphatase Lactate Dehydrogenase 601 H C-Reactive Protein 2.70 H Total Protein Albumin 2.9 L Triglycerides Arterial Blood Glucose Arterial Blood Ionized Calcium Urine WBC (Auto) Coronavirus (PCR) SARS-CoV-2 IgG Ab 05/17/20 05/18/20 05/20/20 05:50 12:22 08:16 WBC RBC Hgb Hct MCV 98 H MCH 33 H MCHC RDW Lymph % (Auto) 8.0 L Lymph # (Auto) 0.8 L Seg Neutrophils % 89.3 H Seg Neuts % (Manual) Lymphocytes % (Manual) Nucleated RBC % Seg Neutrophils # 8.8 H Seg Neutrophils # Man Lymphocytes # (Manual) D-Dimer 1887.82 H ABG pH POC ABG pCO2 POC ABG pO2 ABG pO2 ABG HCO3 ABG O2 Saturation ABG Base Excess ABG Hemoglobin ABG Oxyhemoglobin ABG Sodium ABG Potassium ABG Chloride ABG Glucose Oxyhemoglobin Sodium Potassium Chloride Carbon Dioxide BUN Creatinine Glucose POC Glucose 178 H Lactic Acid Calcium Magnesium Ferritin Total Bilirubin Direct Bilirubin AST ALT Alkaline Phosphatase Lactate Dehydrogenase C-Reactive Protein Total Protein Albumin Triglycerides Arterial Blood Glucose Arterial Blood Ionized Calcium Urine WBC (Auto) Coronavirus (PCR) SARS-CoV-2 IgG Ab 05/20/20 05/20/20 05/21/20 08:16 08:16 21:10 WBC RBC Hgb Hct MCV MCH MCHC RDW Lymph % (Auto) Lymph # (Auto) Seg Neutrophils % Seg Neuts % (Manual) Lymphocytes % (Manual) Nucleated RBC % Seg Neutrophils # Seg Neutrophils # Man Lymphocytes # (Manual) D-Dimer ABG pH 7.483 H POC ABG pCO2 POC ABG pO2 ABG pO2 50.0 L ABG HCO3 27.0 H ABG O2 Saturation 86.2 L ABG Base Excess 3.7 H ABG Hemoglobin ABG Oxyhemoglobin ABG Sodium ABG Potassium ABG Chloride ABG Glucose Oxyhemoglobin 84.2 L Sodium Potassium Chloride Carbon Dioxide BUN Creatinine Glucose POC Glucose Lactic Acid Calcium Magnesium Ferritin 1960.0 H Total Bilirubin Direct Bilirubin AST ALT Alkaline Phosphatase Lactate Dehydrogenase 705 H C-Reactive Protein 3.10 H Total Protein Albumin Triglycerides Arterial Blood Glucose Arterial Blood Ionized Calcium Urine WBC (Auto) Coronavirus (PCR) SARS-CoV-2 IgG Ab 05/22/20 05/22/20 05/22/20 04:01 07:53 07:53 WBC 19.2 H RBC Hgb Hct MCV 98 H MCH 34 H MCHC RDW Lymph % (Auto) Lymph # (Auto) Seg Neutrophils % Seg Neuts % (Manual) 96.0 H Lymphocytes % (Manual) 1.0 L Nucleated RBC % Seg Neutrophils # Seg Neutrophils # Man 18.4 H Lymphocytes # (Manual) 0.2 L D-Dimer ABG pH POC ABG pCO2 53.8 H POC ABG pO2 125.5 H ABG pO2 ABG HCO3 ABG O2 Saturation ABG Base Excess ABG Hemoglobin ABG Oxyhemoglobin ABG Sodium 131.8 L ABG Potassium 4.8 H ABG Chloride 94.0 L ABG Glucose 163 H Oxyhemoglobin Sodium 131 L Potassium Chloride 93.4 L Carbon Dioxide BUN 40 H Creatinine Glucose 176 H POC Glucose Lactic Acid Calcium Magnesium 2.70 H Ferritin Total Bilirubin 1.80 H Direct Bilirubin AST 45 H ALT 116 H Alkaline Phosphatase 181 H Lactate Dehydrogenase C-Reactive Protein Total Protein Albumin 2.6 L Triglycerides Arterial Blood Glucose 163 H Arterial Blood Ionized Calcium 4.5 L Urine WBC (Auto) Coronavirus (PCR) SARS-CoV-2 IgG Ab 05/23/20 05/24/20 05/24/20 04:17 03:07 04:08 WBC RBC Hgb Hct MCV MCH MCHC RDW Lymph % (Auto) Lymph # (Auto) Seg Neutrophils % Seg Neuts % (Manual) Lymphocytes % (Manual) Nucleated RBC % Seg Neutrophils # Seg Neutrophils # Man Lymphocytes # (Manual) D-Dimer ABG pH 7.328 L POC ABG pCO2 POC ABG pO2 ABG pO2 72.8 L 73.4 L ABG HCO3 31.0 H 34.0 H ABG O2 Saturation 93.5 L ABG Base Excess 3.5 H 7.7 H ABG Hemoglobin 13.3 L 12.1 L ABG Oxyhemoglobin ABG Sodium ABG Potassium ABG Chloride ABG Glucose Oxyhemoglobin 91.5 L 94.3 L Sodium Potassium Chloride Carbon Dioxide BUN Creatinine Glucose POC Glucose 155 H Lactic Acid Calcium Magnesium Ferritin Total Bilirubin Direct Bilirubin AST ALT Alkaline Phosphatase Lactate Dehydrogenase C-Reactive Protein Total Protein Albumin Triglycerides Arterial Blood Glucose Arterial Blood Ionized Calcium Urine WBC (Auto) Coronavirus (PCR) SARS-CoV-2 IgG Ab 05/24/20 05/24/20 05/24/20 09:33 12:21 17:52 WBC RBC Hgb Hct MCV MCH MCHC RDW Lymph % (Auto) Lymph # (Auto) Seg Neutrophils % Seg Neuts % (Manual) Lymphocytes % (Manual) Nucleated RBC % Seg Neutrophils # Seg Neutrophils # Man Lymphocytes # (Manual) D-Dimer ABG pH POC ABG pCO2 POC ABG pO2 ABG pO2 ABG HCO3 ABG O2 Saturation ABG Base Excess ABG Hemoglobin ABG Oxyhemoglobin ABG Sodium ABG Potassium ABG Chloride ABG Glucose Oxyhemoglobin Sodium Potassium Chloride Carbon Dioxide 34 H D BUN 28 H Creatinine 0.7 L Glucose 168 H POC Glucose 173 H 164 H Lactic Acid Calcium Magnesium Ferritin Total Bilirubin Direct Bilirubin AST ALT Alkaline Phosphatase Lactate Dehydrogenase C-Reactive Protein Total Protein Albumin Triglycerides Arterial Blood Glucose Arterial Blood Ionized Calcium Urine WBC (Auto) Coronavirus (PCR) SARS-CoV-2 IgG Ab 05/24/20 05/25/20 05/25/20 23:47 04:29 05:46 WBC RBC Hgb Hct MCV MCH MCHC RDW Lymph % (Auto) Lymph # (Auto) Seg Neutrophils % Seg Neuts % (Manual) Lymphocytes % (Manual) Nucleated RBC % Seg Neutrophils # Seg Neutrophils # Man Lymphocytes # (Manual) D-Dimer ABG pH POC ABG pCO2 68.6 H POC ABG pO2 ABG pO2 ABG HCO3 ABG O2 Saturation ABG Base Excess ABG Hemoglobin ABG Oxyhemoglobin ABG Sodium ABG Potassium 4.7 H ABG Chloride ABG Glucose 226 H Oxyhemoglobin Sodium Potassium Chloride Carbon Dioxide BUN Creatinine Glucose POC Glucose 171 H 201 H Lactic Acid Calcium Magnesium Ferritin Total Bilirubin Direct Bilirubin AST ALT Alkaline Phosphatase Lactate Dehydrogenase C-Reactive Protein Total Protein Albumin Triglycerides Arterial Blood Glucose 226 H Arterial Blood Ionized Calcium Urine WBC (Auto) Coronavirus (PCR) SARS-CoV-2 IgG Ab 05/25/20 05/25/20 05/25/20 08:37 08:37 12:38 WBC 12.0 H RBC 3.64 L Hgb Hct MCV 99 H MCH 33 H MCHC RDW Lymph % (Auto) Lymph # (Auto) Seg Neutrophils % Seg Neuts % (Manual) Lymphocytes % (Manual) Nucleated RBC % Seg Neutrophils # Seg Neutrophils # Man Lymphocytes # (Manual) D-Dimer ABG pH POC ABG pCO2 POC ABG pO2 ABG pO2 ABG HCO3 ABG O2 Saturation ABG Base Excess ABG Hemoglobin ABG Oxyhemoglobin ABG Sodium ABG Potassium ABG Chloride ABG Glucose Oxyhemoglobin Sodium Potassium Chloride 97.3 L Carbon Dioxide 35 H BUN 25 H Creatinine 0.7 L Glucose 191 H POC Glucose 182 H Lactic Acid Calcium Magnesium Ferritin Total Bilirubin Direct Bilirubin AST ALT Alkaline Phosphatase Lactate Dehydrogenase C-Reactive Protein Total Protein Albumin Triglycerides Arterial Blood Glucose Arterial Blood Ionized Calcium Urine WBC (Auto) Coronavirus (PCR) SARS-CoV-2 IgG Ab 05/25/20 05/26/20 05/26/20 18:16 00:06 04:50 WBC RBC Hgb Hct MCV MCH MCHC RDW Lymph % (Auto) Lymph # (Auto) Seg Neutrophils % Seg Neuts % (Manual) Lymphocytes % (Manual) Nucleated RBC % Seg Neutrophils # Seg Neutrophils # Man Lymphocytes # (Manual) D-Dimer ABG pH POC ABG pCO2 POC ABG pO2 ABG pO2 221.5 H ABG HCO3 40.4 H ABG O2 Saturation 99.3 H ABG Base Excess 12.8 H ABG Hemoglobin 10.4 L ABG Oxyhemoglobin ABG Sodium ABG Potassium ABG Chloride ABG Glucose Oxyhemoglobin Sodium Potassium Chloride Carbon Dioxide BUN Creatinine Glucose POC Glucose 176 H 152 H Lactic Acid Calcium Magnesium Ferritin Total Bilirubin Direct Bilirubin AST ALT Alkaline Phosphatase Lactate Dehydrogenase C-Reactive Protein Total Protein Albumin Triglycerides Arterial Blood Glucose Arterial Blood Ionized Calcium Urine WBC (Auto) Coronavirus (PCR) SARS-CoV-2 IgG Ab 05/26/20 05/26/2005/26/20 06:11 07:51 07:51 WBC 13.4 H RBC 3.64 L Hgb Hct MCV 98 H MCH 33 H MCHC RDW Lymph % (Auto) Lymph # (Auto) Seg Neutrophils % Seg Neuts % (Manual) Lymphocytes % (Manual) Nucleated RBC % Seg Neutrophils # Seg Neutrophils # Man Lymphocytes # (Manual) D-Dimer ABG pH POC ABG pCO2 POC ABG pO2 ABG pO2 ABG HCO3 ABG O2 Saturation ABG Base Excess ABG Hemoglobin ABG Oxyhemoglobin ABG Sodium ABG Potassium ABG Chloride ABG Glucose Oxyhemoglobin Sodium Potassium Chloride 96.6 L Carbon Dioxide 39 H BUN 29 H Creatinine 0.7 L Glucose 174 H POC Glucose 165 H Lactic Acid Calcium Magnesium Ferritin Total Bilirubin Direct Bilirubin AST ALT Alkaline Phosphatase Lactate Dehydrogenase C-Reactive Protein Total Protein Albumin Triglycerides Arterial Blood Glucose Arterial Blood Ionized Calcium Urine WBC (Auto) Coronavirus (PCR) SARS-CoV-2 IgG Ab 05/26/20 05/27/20 05/27/20 23:23 03:43 05:29 WBC RBC Hgb Hct MCV MCH MCHC RDW Lymph % (Auto) Lymph # (Auto) Seg Neutrophils % Seg Neuts % (Manual) Lymphocytes % (Manual) Nucleated RBC % Seg Neutrophils # Seg Neutrophils # Man Lymphocytes # (Manual) D-Dimer ABG pH 7.480 H POC ABG pCO2 52.4 H POC ABG pO2 61.4 L ABG pO2 ABG HCO3 ABG O2 Saturation ABG Base Excess ABG Hemoglobin ABG Oxyhemoglobin ABG Sodium 134.9 L ABG Potassium ABG Chloride 95.0 L ABG Glucose 221 H Oxyhemoglobin Sodium Potassium Chloride Carbon Dioxide BUN Creatinine Glucose POC Glucose 169 H 227 H Lactic Acid Calcium Magnesium Ferritin Total Bilirubin Direct Bilirubin AST ALT Alkaline Phosphatase Lactate Dehydrogenase C-Reactive Protein Total Protein Albumin Triglycerides Arterial Blood Glucose 221 H Arterial Blood Ionized Calcium 4.5 L Urine WBC (Auto) Coronavirus (PCR) SARS-CoV-2 IgG Ab 05/27/20 05/27/20 05/27/20 07:19 12:18 13:50 WBC RBC Hgb Hct MCV MCH MCHC RDW Lymph % (Auto) Lymph # (Auto) Seg Neutrophils % Seg Neuts % (Manual) Lymphocytes % (Manual) Nucleated RBC % Seg Neutrophils # Seg Neutrophils # Man Lymphocytes # (Manual) D-Dimer ABG pH POC ABG pCO2 POC ABG pO2 ABG pO2 ABG HCO3 ABG O2 Saturation ABG Base Excess ABG Hemoglobin ABG Oxyhemoglobin ABG Sodium ABG Potassium ABG Chloride ABG Glucose Oxyhemoglobin Sodium Potassium Chloride Carbon Dioxide BUN Creatinine Glucose POC Glucose 114 H 148 H Lactic Acid Calcium Magnesium Ferritin Total Bilirubin Direct Bilirubin AST ALT Alkaline Phosphatase Lactate Dehydrogenase C-Reactive Protein Total Protein Albumin Triglycerides 247 H Arterial Blood Glucose Arterial Blood Ionized Calcium Urine WBC (Auto) Coronavirus (PCR) SARS-CoV-2 IgG Ab 05/28/20 05/28/20 05/28/20 00:13 04:16 05:22 WBC RBC Hgb Hct MCV MCH MCHC RDW Lymph % (Auto) Lymph # (Auto) Seg Neutrophils % Seg Neuts % (Manual) Lymphocytes % (Manual) Nucleated RBC % Seg Neutrophils # Seg Neutrophils # Man Lymphocytes # (Manual) D-Dimer ABG pH POC ABG pCO2 64.4 H POC ABG pO2 60.5 L ABG pO2 ABG HCO3 ABG O2 Saturation ABG Base Excess ABG Hemoglobin ABG Oxyhemoglobin ABG Sodium ABG Potassium ABG Chloride 95.0 L ABG Glucose 209 H Oxyhemoglobin Sodium Potassium Chloride Carbon Dioxide BUN Creatinine Glucose POC Glucose 155 H 186 H Lactic Acid Calcium Magnesium Ferritin Total Bilirubin Direct Bilirubin AST ALT Alkaline Phosphatase Lactate Dehydrogenase C-Reactive Protein Total Protein Albumin Triglycerides Arterial Blood Glucose 209 H Arterial Blood Ionized Calcium Urine WBC (Auto) Coronavirus (PCR) SARS-CoV-2 IgG Ab 05/28/20 05/28/20 05/29/20 12:45 17:39 00:37 WBC RBC Hgb Hct MCV MCH MCHC RDW Lymph % (Auto) Lymph # (Auto) Seg Neutrophils % Seg Neuts % (Manual) Lymphocytes % (Manual) Nucleated RBC % Seg Neutrophils # Seg Neutrophils # Man Lymphocytes # (Manual) D-Dimer ABG pH POC ABG pCO2 POC ABG pO2 ABG pO2 ABG HCO3 ABG O2 Saturation ABG Base Excess ABG Hemoglobin ABG Oxyhemoglobin ABG Sodium ABG Potassium ABG Chloride ABG Glucose Oxyhemoglobin Sodium Potassium Chloride Carbon Dioxide BUN Creatinine Glucose POC Glucose 143 H 164 H 221 H Lactic Acid Calcium Magnesium Ferritin Total Bilirubin Direct Bilirubin AST ALT Alkaline Phosphatase Lactate Dehydrogenase C-Reactive Protein Total Protein Albumin Triglycerides Arterial Blood Glucose Arterial Blood Ionized Calcium Urine WBC (Auto) Coronavirus (PCR) SARS-CoV-2 IgG Ab 05/29/20 05/29/20 05/29/20 04:15 05:33 12:34 WBC RBC Hgb Hct MCV MCH MCHC RDW Lymph % (Auto) Lymph # (Auto) Seg Neutrophils % Seg Neuts % (Manual) Lymphocytes % (Manual) Nucleated RBC % Seg Neutrophils # Seg Neutrophils # Man Lymphocytes # (Manual) D-Dimer ABG pH 7.463 H POC ABG pCO2 56.3 H POC ABG pO2 81.2 L ABG pO2 ABG HCO3 ABG O2 Saturation ABG Base Excess ABG Hemoglobin ABG Oxyhemoglobin ABG Sodium ABG Potassium ABG Chloride 96.0 L ABG Glucose 194 H Oxyhemoglobin Sodium Potassium Chloride Carbon Dioxide BUN Creatinine Glucose POC Glucose 133 H 221 H Lactic Acid Calcium Magnesium Ferritin Total Bilirubin Direct Bilirubin AST ALT Alkaline Phosphatase Lactate Dehydrogenase C-Reactive Protein Total Protein Albumin Triglycerides Arterial Blood Glucose 194 H Arterial Blood Ionized Calcium 4.5 L Urine WBC (Auto) Coronavirus (PCR) SARS-CoV-2 IgG Ab 05/29/20 05/30/20 05/30/20 18:07 00:12 05:38 WBC RBC Hgb Hct MCV MCH MCHC RDW Lymph % (Auto) Lymph # (Auto) Seg Neutrophils % Seg Neuts % (Manual) Lymphocytes % (Manual) Nucleated RBC % Seg Neutrophils # Seg Neutrophils # Man Lymphocytes # (Manual) D-Dimer ABG pH POC ABG pCO2 POC ABG pO2 ABG pO2 ABG HCO3 ABG O2 Saturation ABG Base Excess ABG Hemoglobin ABG Oxyhemoglobin ABG Sodium ABG Potassium ABG Chloride ABG Glucose Oxyhemoglobin Sodium Potassium Chloride Carbon Dioxide BUN Creatinine Glucose POC Glucose 162 H 190 H 208 H Lactic Acid Calcium Magnesium Ferritin Total Bilirubin Direct Bilirubin AST ALT Alkaline Phosphatase Lactate Dehydrogenase C-Reactive Protein Total Protein Albumin Triglycerides Arterial Blood Glucose Arterial Blood Ionized Calcium Urine WBC (Auto) Coronavirus (PCR) SARS-CoV-2 IgG Ab 05/30/20 05/30/20 05/30/20 09:30 11:35 11:54 WBC 12.4 H RBC 3.48 L Hgb 11.3 L Hct 34.6 L MCV 99 H MCH 33 H MCHC RDW Lymph % (Auto) Lymph # (Auto) Seg Neutrophils % Seg Neuts % (Manual) Lymphocytes % (Manual) Nucleated RBC % Seg Neutrophils # Seg Neutrophils # Man Lymphocytes # (Manual) D-Dimer ABG pH 7.455 H POC ABG pCO2 57.5 H POC ABG pO2 81.5 L ABG pO2 ABG HCO3 ABG O2 Saturation ABG Base Excess ABG Hemoglobin ABG Oxyhemoglobin ABG Sodium ABG Potassium ABG Chloride 96.0 L ABG Glucose 204 H Oxyhemoglobin Sodium Potassium Chloride Carbon Dioxide BUN Creatinine Glucose POC Glucose 183 H Lactic Acid Calcium Magnesium Ferritin Total Bilirubin Direct Bilirubin AST ALT Alkaline Phosphatase Lactate Dehydrogenase C-Reactive Protein Total Protein Albumin Triglycerides Arterial Blood Glucose 204 H Arterial Blood Ionized Calcium Urine WBC (Auto) Coronavirus (PCR) SARS-CoV-2 IgG Ab 05/30/20 05/31/20 05/31/20 18:01 00:10 03:22 WBC RBC Hgb Hct MCV MCH MCHC RDW Lymph % (Auto) Lymph # (Auto) Seg Neutrophils % Seg Neuts % (Manual) Lymphocytes % (Manual) Nucleated RBC % Seg Neutrophils # Seg Neutrophils # Man Lymphocytes # (Manual) D-Dimer ABG pH POC ABG pCO2 60.4 H POC ABG pO2 71.5 L ABG pO2 ABG HCO3 ABG O2 Saturation ABG Base Excess ABG Hemoglobin ABG Oxyhemoglobin ABG Sodium ABG Potassium ABG Chloride 96.0 L ABG Glucose 169 H Oxyhemoglobin Sodium Potassium Chloride Carbon Dioxide BUN Creatinine Glucose POC Glucose 184 H 135 H Lactic Acid Calcium Magnesium Ferritin Total Bilirubin Direct Bilirubin AST ALT Alkaline Phosphatase Lactate Dehydrogenase C-Reactive Protein Total Protein Albumin Triglycerides Arterial Blood Glucose 169 H Arterial Blood Ionized Calcium 4.5 L Urine WBC (Auto) Coronavirus (PCR) SARS-CoV-2 IgG Ab 05/31/20 05/31/20 05/31/20 05:24 11:18 14:41 WBC RBC Hgb Hct MCV MCH MCHC RDW Lymph % (Auto) Lymph # (Auto) Seg Neutrophils % Seg Neuts % (Manual) Lymphocytes % (Manual) Nucleated RBC % Seg Neutrophils # Seg Neutrophils # Man Lymphocytes # (Manual) D-Dimer ABG pH POC ABG pCO2 POC ABG pO2 ABG pO2 ABG HCO3 ABG O2 Saturation ABG Base Excess ABG Hemoglobin ABG Oxyhemoglobin ABG Sodium ABG Potassium ABG Chloride ABG Glucose Oxyhemoglobin Sodium Potassium Chloride 96.8 L Carbon Dioxide 37 H BUN 31 H Creatinine 0.6 L Glucose 213 H POC Glucose 164 H 208 H Lactic Acid Calcium Magnesium Ferritin Total Bilirubin Direct Bilirubin AST ALT Alkaline Phosphatase Lactate Dehydrogenase C-Reactive Protein Total Protein Albumin Triglycerides Arterial Blood Glucose Arterial Blood Ionized Calcium Urine WBC (Auto) Coronavirus (PCR) SARS-CoV-2 IgG Ab 05/31/20 05/31/20 06/01/20 17:37 23:47 03:48 WBC RBC Hgb Hct MCV MCH MCHC RDW Lymph % (Auto) Lymph # (Auto) Seg Neutrophils % Seg Neuts % (Manual) Lymphocytes % (Manual) Nucleated RBC % Seg Neutrophils # Seg Neutrophils # Man Lymphocytes # (Manual) D-Dimer ABG pH POC ABG pCO2 59.7 H POC ABG pO2 73.9 L ABG pO2 ABG HCO3 ABG O2 Saturation ABG Base Excess ABG Hemoglobin ABG Oxyhemoglobin ABG Sodium ABG Potassium ABG Chloride 95.0 L ABG Glucose 256 H Oxyhemoglobin Sodium Potassium Chloride Carbon Dioxide BUN Creatinine Glucose POC Glucose 168 H 178 H Lactic Acid Calcium Magnesium Ferritin Total Bilirubin Direct Bilirubin AST ALT Alkaline Phosphatase Lactate Dehydrogenase C-Reactive Protein Total Protein Albumin Triglycerides Arterial Blood Glucose 256 H Arterial Blood Ionized Calcium Urine WBC (Auto) Coronavirus (PCR) SARS-CoV-2 IgG Ab 06/01/20 06/01/20 06/01/20 05:01 07:47 07:47 WBC 14.4 H RBC 3.46 L Hgb 11.1 L Hct 34.3 L MCV 99 H MCH MCHC RDW Lymph % (Auto) Lymph # (Auto) Seg Neutrophils % Seg Neuts % (Manual) 86.0 H Lymphocytes % (Manual) 9.0 L Nucleated RBC % Seg Neutrophils # Seg Neutrophils # Man 12.4 H Lymphocytes # (Manual) D-Dimer ABG pH POC ABG pCO2 POC ABG pO2 ABG pO2 ABG HCO3 ABG O2 Saturation ABG Base Excess ABG Hemoglobin ABG Oxyhemoglobin ABG Sodium ABG Potassium ABG Chloride ABG Glucose Oxyhemoglobin Sodium Potassium Chloride Carbon Dioxide BUN Creatinine Glucose POC Glucose 197 H Lactic Acid Calcium Magnesium Ferritin Total Bilirubin Direct Bilirubin AST ALT Alkaline Phosphatase Lactate Dehydrogenase C-Reactive Protein Total Protein Albumin Triglycerides 244 H Arterial Blood Glucose Arterial Blood Ionized Calcium Urine WBC (Auto) Coronavirus (PCR) SARS-CoV-2 IgG Ab 06/01/20 06/01/20 06/01/20 07:47 11:46 18:15 WBC RBC Hgb Hct MCV MCH MCHC RDW Lymph % (Auto) Lymph # (Auto) Seg Neutrophils % Seg Neuts % (Manual) Lymphocytes % (Manual) Nucleated RBC % Seg Neutrophils # Seg Neutrophils # Man Lymphocytes # (Manual) D-Dimer ABG pH POC ABG pCO2 POC ABG pO2 ABG pO2 ABG HCO3 ABG O2 Saturation ABG Base Excess ABG Hemoglobin ABG Oxyhemoglobin ABG Sodium ABG Potassium ABG Chloride ABG Glucose Oxyhemoglobin Sodium Potassium Chloride 95.4 L Carbon Dioxide 35 H BUN 30 H Creatinine 0.5 L Glucose 214 H POC Glucose 181 H 221 H Lactic Acid Calcium Magnesium Ferritin Total Bilirubin Direct Bilirubin AST 54 H ALT 235 H Alkaline Phosphatase Lactate Dehydrogenase C-Reactive Protein Total Protein Albumin 2.9 L Triglycerides Arterial Blood Glucose Arterial Blood Ionized Calcium Urine WBC (Auto) Coronavirus (PCR) SARS-CoV-2 IgG Ab 06/01/20 06/02/20 06/02/20 23:12 04:00 05:31 WBC RBC Hgb Hct MCV MCH MCHC RDW Lymph % (Auto) Lymph # (Auto) Seg Neutrophils % Seg Neuts % (Manual) Lymphocytes % (Manual) Nucleated RBC % Seg Neutrophils # Seg Neutrophils # Man Lymphocytes # (Manual) D-Dimer ABG pH 7.465 H POC ABG pCO2 POC ABG pO2 ABG pO2 203.4 H ABG HCO3 41.2 H ABG O2 Saturation 99.3 H ABG Base Excess 15.1 H ABG Hemoglobin 11.5 L ABG Oxyhemoglobin ABG Sodium ABG Potassium ABG Chloride ABG Glucose Oxyhemoglobin Sodium Potassium Chloride Carbon Dioxide BUN Creatinine Glucose POC Glucose 197 H 184 H Lactic Acid Calcium Magnesium Ferritin Total Bilirubin Direct Bilirubin AST ALT Alkaline Phosphatase Lactate Dehydrogenase C-Reactive Protein Total Protein Albumin Triglycerides Arterial Blood Glucose Arterial Blood Ionized Calcium Urine WBC (Auto) Coronavirus (PCR) SARS-CoV-2 IgG Ab 06/02/20 06/02/20 06/02/20 11:49 18:06 23:00 WBC RBC Hgb Hct MCV MCH MCHC RDW Lymph % (Auto) Lymph # (Auto) Seg Neutrophils % Seg Neuts % (Manual) Lymphocytes % (Manual) Nucleated RBC % Seg Neutrophils # Seg Neutrophils # Man Lymphocytes # (Manual) D-Dimer ABG pH POC ABG pCO2 POC ABG pO2 ABG pO2 ABG HCO3 ABG O2 Saturation ABG Base Excess ABG Hemoglobin ABG Oxyhemoglobin ABG Sodium ABG Potassium ABG Chloride ABG Glucose Oxyhemoglobin Sodium Potassium Chloride Carbon Dioxide BUN Creatinine Glucose POC Glucose 195 H 177 H 228 H Lactic Acid Calcium Magnesium Ferritin Total Bilirubin Direct Bilirubin AST ALT Alkaline Phosphatase Lactate Dehydrogenase C-Reactive Protein Total Protein Albumin Triglycerides Arterial Blood Glucose Arterial Blood Ionized Calcium Urine WBC (Auto) Coronavirus (PCR) SARS-CoV-2 IgG Ab 06/03/20 06/03/20 06/03/20 03:58 05:19 12:21 WBC RBC Hgb Hct MCV MCH MCHC RDW Lymph % (Auto) Lymph # (Auto) Seg Neutrophils % Seg Neuts % (Manual) Lymphocytes % (Manual) Nucleated RBC % Seg Neutrophils # Seg Neutrophils # Man Lymphocytes # (Manual) D-Dimer ABG pH POC ABG pCO2 POC ABG pO2 ABG pO2 171.0 H ABG HCO3 42.8 H ABG O2 Saturation ABG Base Excess 15.6 H ABG Hemoglobin 12.3 L ABG Oxyhemoglobin ABG Sodium ABG Potassium ABG Chloride ABG Glucose Oxyhemoglobin Sodium Potassium Chloride Carbon Dioxide BUN Creatinine Glucose POC Glucose 122 H 207 H Lactic Acid Calcium Magnesium Ferritin Total Bilirubin Direct Bilirubin AST ALT Alkaline Phosphatase Lactate Dehydrogenase C-Reactive Protein Total Protein Albumin Triglycerides Arterial Blood Glucose Arterial Blood Ionized Calcium Urine WBC (Auto) Coronavirus (PCR) SARS-CoV-2 IgG Ab 06/03/20 06/03/20 06/04/20 17:27 23:50 03:55 WBC RBC Hgb Hct MCV MCH MCHC RDW Lymph % (Auto) Lymph # (Auto) Seg Neutrophils % Seg Neuts % (Manual) Lymphocytes % (Manual) Nucleated RBC % Seg Neutrophils # Seg Neutrophils # Man Lymphocytes # (Manual) D-Dimer ABG pH POC ABG pCO2 POC ABG pO2 ABG pO2 117.2 H ABG HCO3 42.4 H ABG O2 Saturation ABG Base Excess 15.3 H ABG Hemoglobin 10.5 L ABG Oxyhemoglobin ABG Sodium ABG Potassium ABG Chloride ABG Glucose Oxyhemoglobin Sodium Potassium Chloride Carbon Dioxide BUN Creatinine Glucose POC Glucose 157 H 214 H Lactic Acid Calcium Magnesium Ferritin Total Bilirubin Direct Bilirubin AST ALT Alkaline Phosphatase Lactate Dehydrogenase C-Reactive Protein Total Protein Albumin Triglycerides Arterial Blood Glucose Arterial Blood Ionized Calcium Urine WBC (Auto) Coronavirus (PCR) SARS-CoV-2 IgG Ab 06/04/20 06/04/20 06/04/20 05:49 11:41 17:30 WBC RBC Hgb Hct MCV MCH MCHC RDW Lymph % (Auto) Lymph # (Auto) Seg Neutrophils % Seg Neuts % (Manual) Lymphocytes % (Manual) Nucleated RBC % Seg Neutrophils # Seg Neutrophils # Man Lymphocytes # (Manual) D-Dimer ABG pH POC ABG pCO2 POC ABG pO2 ABG pO2 ABG HCO3 ABG O2 Saturation ABG Base Excess ABG Hemoglobin ABG Oxyhemoglobin ABG Sodium ABG Potassium ABG Chloride ABG Glucose Oxyhemoglobin Sodium Potassium Chloride Carbon Dioxide BUN Creatinine Glucose POC Glucose 149 H 233 H 156 H Lactic Acid Calcium Magnesium Ferritin Total Bilirubin Direct Bilirubin AST ALT Alkaline Phosphatase Lactate Dehydrogenase C-Reactive Protein Total Protein Albumin Triglycerides Arterial Blood Glucose Arterial Blood Ionized Calcium Urine WBC (Auto) Coronavirus (PCR) SARS-CoV-2 IgG Ab 06/04/20 06/04/20 06/04/20 19:01 20:53 23:41 WBC RBC 3.18 L Hgb 10.8 L Hct 31.8 L MCV 100 H MCH 34 H MCHC RDW Lymph % (Auto) Lymph # (Auto) Seg Neutrophils % Seg Neuts % (Manual) 86.0 H Lymphocytes % (Manual) 10.0 L Nucleated RBC % 1.0 H Seg Neutrophils # Seg Neutrophils # Man 8.5 H Lymphocytes # (Manual) 1.0 L D-Dimer ABG pH POC ABG pCO2 POC ABG pO2 ABG pO2 ABG HCO3 ABG O2 Saturation ABG Base Excess ABG Hemoglobin ABG Oxyhemoglobin ABG Sodium ABG Potassium ABG Chloride ABG Glucose Oxyhemoglobin Sodium Potassium 3.4 L D Chloride 96.5 L Carbon Dioxide 41 H* BUN 27 H Creatinine 0.5 L Glucose 173 H POC Glucose 217 H Lactic Acid Calcium Magnesium Ferritin Total Bilirubin Direct Bilirubin AST ALT Alkaline Phosphatase Lactate Dehydrogenase C-Reactive Protein Total Protein Albumin Triglycerides Arterial Blood Glucose Arterial Blood Ionized Calcium Urine WBC (Auto) Coronavirus (PCR) SARS-CoV-2 IgG Ab 06/05/20 06/05/20 06/05/20 06:05 11:54 12:35 WBC RBC Hgb Hct MCV MCH MCHC RDW Lymph % (Auto) Lymph # (Auto) Seg Neutrophils % Seg Neuts % (Manual) Lymphocytes % (Manual) Nucleated RBC % Seg Neutrophils # Seg Neutrophils # Man Lymphocytes # (Manual) D-Dimer ABG pH POC ABG pCO2 POC ABG pO2 ABG pO2 127.9 H ABG HCO3 41.1 H ABG O2 Saturation ABG Base Excess 13.0 H ABG Hemoglobin 13.4 L ABG Oxyhemoglobin ABG Sodium ABG Potassium ABG Chloride ABG Glucose Oxyhemoglobin Sodium Potassium Chloride Carbon Dioxide BUN Creatinine Glucose POC Glucose 137 H 211 H Lactic Acid Calcium Magnesium Ferritin Total Bilirubin Direct Bilirubin AST ALT Alkaline Phosphatase Lactate Dehydrogenase C-Reactive Protein Total Protein Albumin Triglycerides Arterial Blood Glucose Arterial Blood Ionized Calcium Urine WBC (Auto) Coronavirus (PCR) SARS-CoV-2 IgG Ab 06/05/20 06/05/20 06/06/20 17:03 23:49 04:42 WBC RBC Hgb Hct MCV MCH MCHC RDW Lymph % (Auto) Lymph # (Auto) Seg Neutrophils % Seg Neuts % (Manual) Lymphocytes % (Manual) Nucleated RBC % Seg Neutrophils # Seg Neutrophils # Man Lymphocytes # (Manual) D-Dimer ABG pH POC ABG pCO2 56.1 H POC ABG pO2 52.5 L ABG pO2 ABG HCO3 ABG O2 Saturation ABG Base Excess ABG Hemoglobin 11.7 L ABG Oxyhemoglobin ABG Sodium ABG Potassium 3.3 L ABG Chloride 95.0 L ABG Glucose 156 H Oxyhemoglobin Sodium Potassium Chloride Carbon Dioxide BUN Creatinine Glucose POC Glucose 159 H 194 H Lactic Acid Calcium Magnesium Ferritin Total Bilirubin Direct Bilirubin AST ALT Alkaline Phosphatase Lactate Dehydrogenase C-Reactive Protein Total Protein Albumin Triglycerides Arterial Blood Glucose 156 H Arterial Blood Ionized Calcium Urine WBC (Auto) Coronavirus (PCR) SARS-CoV-2 IgG Ab 06/06/20 06/06/20 06/06/20 05:57 12:06 17:38 WBC RBC Hgb Hct MCV MCH MCHC RDW Lymph % (Auto) Lymph # (Auto) Seg Neutrophils % Seg Neuts % (Manual) Lymphocytes % (Manual) Nucleated RBC % Seg Neutrophils # Seg Neutrophils # Man Lymphocytes # (Manual) D-Dimer ABG pH POC ABG pCO2 POC ABG pO2 ABG pO2 ABG HCO3 ABG O2 Saturation ABG Base Excess ABG Hemoglobin ABG Oxyhemoglobin ABG Sodium ABG Potassium ABG Chloride ABG Glucose Oxyhemoglobin Sodium Potassium Chloride Carbon Dioxide BUN Creatinine Glucose POC Glucose 144 H 230 H 162 H Lactic Acid Calcium Magnesium Ferritin Total Bilirubin Direct Bilirubin AST ALT Alkaline Phosphatase Lactate Dehydrogenase C-Reactive Protein Total Protein Albumin Triglycerides Arterial Blood Glucose Arterial Blood Ionized Calcium Urine WBC (Auto) Coronavirus (PCR) SARS-CoV-2 IgG Ab 06/06/20 06/07/20 06/07/20 23:50 04:34 06:03 WBC RBC Hgb Hct MCV MCH MCHC RDW Lymph % (Auto) Lymph # (Auto) Seg Neutrophils % Seg Neuts % (Manual) Lymphocytes % (Manual) Nucleated RBC % Seg Neutrophils # Seg Neutrophils # Man Lymphocytes # (Manual) D-Dimer ABG pH 7.511 H POC ABG pCO2 53.5 H POC ABG pO2 114.5 H ABG pO2 ABG HCO3 ABG O2 Saturation ABG Base Excess ABG Hemoglobin 9.4 L ABG Oxyhemoglobin ABG Sodium 134.5 L ABG Potassium ABG Chloride 94.0 L ABG Glucose 186 H Oxyhemoglobin Sodium Potassium Chloride Carbon Dioxide BUN Creatinine Glucose POC Glucose 181 H 155 H Lactic Acid Calcium Magnesium Ferritin Total Bilirubin Direct Bilirubin AST ALT Alkaline Phosphatase Lactate Dehydrogenase C-Reactive Protein Total Protein Albumin Triglycerides Arterial Blood Glucose 186 H Arterial Blood Ionized Calcium 4.5 L Urine WBC (Auto) Coronavirus (PCR) SARS-CoV-2 IgG Ab 06/07/20 06/07/20 06/07/20 13:41 14:58 14:58 WBC RBC 2.72 L Hgb 9.3 L Hct 27.2 L MCV 100 H MCH 34 H MCHC RDW Lymph % (Auto) Lymph # (Auto) Seg Neutrophils % Seg Neuts % (Manual) Lymphocytes % (Manual) Nucleated RBC % Seg Neutrophils # Seg Neutrophils # Man Lymphocytes # (Manual) D-Dimer ABG pH POC ABG pCO2 POC ABG pO2 ABG pO2 ABG HCO3 ABG O2 Saturation ABG Base Excess ABG Hemoglobin ABG Oxyhemoglobin ABG Sodium ABG Potassium ABG Chloride ABG Glucose Oxyhemoglobin Sodium Potassium Chloride 93.5 L Carbon Dioxide 39 H BUN 22 H Creatinine 0.4 L Glucose 188 H POC Glucose 201 H Lactic Acid Calcium Magnesium Ferritin Total Bilirubin Direct Bilirubin AST 61 H ALT 273 H Alkaline Phosphatase Lactate Dehydrogenase C-Reactive Protein Total Protein 5.9 L Albumin 2.7 L Triglycerides Arterial Blood Glucose Arterial Blood Ionized Calcium Urine WBC (Auto) Coronavirus (PCR) SARS-CoV-2 IgG Ab 06/07/20 06/08/20 06/08/20 23:18 05:31 12:07 WBC RBC Hgb Hct MCV MCH MCHC RDW Lymph % (Auto) Lymph # (Auto) Seg Neutrophils % Seg Neuts % (Manual) Lymphocytes % (Manual) Nucleated RBC % Seg Neutrophils # Seg Neutrophils # Man Lymphocytes # (Manual) D-Dimer ABG pH POC ABG pCO2 POC ABG pO2 ABG pO2 ABG HCO3 ABG O2 Saturation ABG Base Excess ABG Hemoglobin ABG Oxyhemoglobin ABG Sodium ABG Potassium ABG Chloride ABG Glucose Oxyhemoglobin Sodium Potassium Chloride Carbon Dioxide BUN Creatinine Glucose POC Glucose 214 H 129 H 179 H Lactic Acid Calcium Magnesium Ferritin Total Bilirubin Direct Bilirubin AST ALT Alkaline Phosphatase Lactate Dehydrogenase C-Reactive Protein Total Protein Albumin Triglycerides Arterial Blood Glucose Arterial Blood Ionized Calcium Urine WBC (Auto) Coronavirus (PCR) SARS-CoV-2 IgG Ab 06/08/20 06/08/20 06/09/20 18:18 23:35 05:42 WBC RBC Hgb Hct MCV MCH MCHC RDW Lymph % (Auto) Lymph # (Auto) Seg Neutrophils % Seg Neuts % (Manual) Lymphocytes % (Manual) Nucleated RBC % Seg Neutrophils # Seg Neutrophils # Man Lymphocytes # (Manual) D-Dimer ABG pH POC ABG pCO2 POC ABG pO2 ABG pO2 ABG HCO3 ABG O2 Saturation ABG Base Excess ABG Hemoglobin ABG Oxyhemoglobin ABG Sodium ABG Potassium ABG Chloride ABG Glucose Oxyhemoglobin Sodium Potassium Chloride Carbon Dioxide BUN Creatinine Glucose POC Glucose 172 H 177 H 137 H Lactic Acid Calcium Magnesium Ferritin Total Bilirubin Direct Bilirubin AST ALT Alkaline Phosphatase Lactate Dehydrogenase C-Reactive Protein Total Protein Albumin Triglycerides Arterial Blood Glucose Arterial Blood Ionized Calcium Urine WBC (Auto) Coronavirus (PCR) SARS-CoV-2 IgG Ab 06/09/20 06/09/20 06/09/20 06:20 07:55 07:55 WBC 12.4 H RBC 3.26 L Hgb 11.1 L Hct 33.4 L D MCV 102 H MCH 34 H MCHC RDW Lymph % (Auto) Lymph # (Auto) Seg Neutrophils % Seg Neuts % (Manual) Lymphocytes % (Manual) Nucleated RBC % Seg Neutrophils # Seg Neutrophils # Man Lymphocytes # (Manual) D-Dimer ABG pH 7.466 H POC ABG pCO2 50.7 H POC ABG pO2 53.0 L ABG pO2 ABG HCO3 ABG O2 Saturation ABG Base Excess ABG Hemoglobin ABG Oxyhemoglobin ABG Sodium ABG Potassium 2.9 L ABG Chloride 93.0 L ABG Glucose 138 H Oxyhemoglobin Sodium Potassium 3.0 L Chloride 92.3 L Carbon Dioxide 37 H BUN 21 H Creatinine 0.6 L Glucose 120 H POC Glucose Lactic Acid Calcium Magnesium Ferritin Total Bilirubin Direct Bilirubin AST ALT Alkaline Phosphatase Lactate Dehydrogenase C-Reactive Protein Total Protein Albumin Triglycerides Arterial Blood Glucose 138 H Arterial Blood Ionized Calcium 4.5 L Urine WBC (Auto) Coronavirus (PCR) SARS-CoV-2 IgG Ab 06/09/20 06/09/20 06/10/20 11:22 18:32 04:46 WBC RBC Hgb Hct MCV MCH MCHC RDW Lymph % (Auto) Lymph # (Auto) Seg Neutrophils % Seg Neuts % (Manual) Lymphocytes % (Manual) Nucleated RBC % Seg Neutrophils # Seg Neutrophils # Man Lymphocytes # (Manual) D-Dimer ABG pH 7.501 H POC ABG pCO2 POC ABG pO2 126.5 H ABG pO2 ABG HCO3 ABG O2 Saturation ABG Base Excess ABG Hemoglobin 10.3 L ABG Oxyhemoglobin ABG Sodium ABG Potassium ABG Chloride ABG Glucose 220 H Oxyhemoglobin Sodium Potassium Chloride Carbon Dioxide BUN Creatinine Glucose POC Glucose 117 H 121 H Lactic Acid Calcium Magnesium Ferritin Total Bilirubin Direct Bilirubin AST ALT Alkaline Phosphatase Lactate Dehydrogenase C-Reactive Protein Total Protein Albumin Triglycerides Arterial Blood Glucose 220 H Arterial Blood Ionized Calcium Urine WBC (Auto) Coronavirus (PCR) SARS-CoV-2 IgG Ab 06/10/20 06/10/20 06/10/20 05:30 09:38 12:03 WBC RBC Hgb Hct MCV MCH MCHC RDW Lymph % (Auto) Lymph # (Auto) Seg Neutrophils % Seg Neuts % (Manual) Lymphocytes % (Manual) Nucleated RBC % Seg Neutrophils # Seg Neutrophils # Man Lymphocytes # (Manual) D-Dimer ABG pH POC ABG pCO2 POC ABG pO2 ABG pO2 ABG HCO3 ABG O2 Saturation ABG Base Excess ABG Hemoglobin ABG Oxyhemoglobin ABG Sodium ABG Potassium ABG Chloride ABG Glucose Oxyhemoglobin Sodium Potassium Chloride Carbon Dioxide BUN Creatinine Glucose POC Glucose 181 H 204 H Lactic Acid Calcium Magnesium Ferritin Total Bilirubin Direct Bilirubin AST ALT Alkaline Phosphatase Lactate Dehydrogenase C-Reactive Protein Total Protein Albumin Triglycerides 738 H Arterial Blood Glucose Arterial Blood Ionized Calcium Urine WBC (Auto) Coronavirus (PCR) SARS-CoV-2 IgG Ab 06/10/20 06/11/20 06/11/20 17:17 00:04 04:38 WBC RBC Hgb Hct MCV MCH MCHC RDW Lymph % (Auto) Lymph # (Auto) Seg Neutrophils % Seg Neuts % (Manual) Lymphocytes % (Manual) Nucleated RBC % Seg Neutrophils # Seg Neutrophils # Man Lymphocytes # (Manual) D-Dimer ABG pH 7.479 H POC ABG pCO2 POC ABG pO2 76.7 L ABG pO2 ABG HCO3 ABG O2 Saturation ABG Base Excess ABG Hemoglobin 9.8 L ABG Oxyhemoglobin ABG Sodium 135.8 L ABG Potassium ABG Chloride ABG Glucose 238 H Oxyhemoglobin Sodium Potassium Chloride Carbon Dioxide BUN Creatinine Glucose POC Glucose 156 H 178 H Lactic Acid Calcium Magnesium Ferritin Total Bilirubin Direct Bilirubin AST ALT Alkaline Phosphatase Lactate Dehydrogenase C-Reactive Protein Total Protein Albumin Triglycerides Arterial Blood Glucose 238 H Arterial Blood Ionized Calcium Urine WBC (Auto) Coronavirus (PCR) SARS-CoV-2 IgG Ab 06/11/20 06/11/20 06/11/20 05:21 06:52 11:50 WBC RBC Hgb Hct MCV MCH MCHC RDW Lymph % (Auto) Lymph # (Auto) Seg Neutrophils % Seg Neuts % (Manual) Lymphocytes % (Manual) Nucleated RBC % Seg Neutrophils # Seg Neutrophils # Man Lymphocytes # (Manual) D-Dimer ABG pH POC ABG pCO2 POC ABG pO2 ABG pO2 ABG HCO3 ABG O2 Saturation ABG Base Excess ABG Hemoglobin ABG Oxyhemoglobin ABG Sodium ABG Potassium ABG Chloride ABG Glucose Oxyhemoglobin Sodium Potassium Chloride Carbon Dioxide BUN Creatinine Glucose POC Glucose 215 H 187 H Lactic Acid Calcium Magnesium Ferritin Total Bilirubin Direct Bilirubin AST ALT Alkaline Phosphatase Lactate Dehydrogenase C-Reactive Protein Total Protein Albumin Triglycerides 331 H Arterial Blood Glucose Arterial Blood Ionized Calcium Urine WBC (Auto) Coronavirus (PCR) SARS-CoV-2 IgG Ab Chest x-ray: pending Allied health notes reviewed: nursing
--- NOTE | 2020-06-11 19:15 | Progress Note ---
Assessment and Plan Assessment and Plan Patient intubated last night because of persistent hypoxia --Elevated D-dimers; on full dose anticoagulation However ID requested to get CTA chest, patient is unstable to go for CT As he is requiring high flow oxygen. -- Acute hypoxemic respiratory failure; Patient intubated and on vent support --Elevated D-dimers; check CTA to rule out PE Lower extremity venous Doppler to rule out DVT Patient is already on full dose anticoagulation per COVID-19 protocol -- Novel coronavirus infection with Bilateral pneumonia Coronavirus protocol: IV steroid therapy, IV remdesivir, isolation precautions, contact precautions, prone positioning while in bed, pulmonary toilet. consulted ID --Severe sepsis, due to COVID 19 PNA cont to treat for COVID -- Acute kidney injury (SEN) , likely vasomotor nephropathy Resolved, IV fluids, avoid nephrotoxins -- Alcohol dependence; no episodes of withdrawal symptoms Thiamine, folic acid, multivitamin, CIWA protocol. -- Elevated liver function tests Suspected secondary to alcoholic liver disease. Supportive care, alcohol cessation, patient counseled. -- DVT prophylaxis prophylactic AC with lovenox for elevated D-dimer We will closely monitor patient and adjust management as needed Patient has severe Covid pneumonia, severe hypoxia Critically ill very poor prognosis Full CODE STATUS The high probability of a clinically significant, sudden or life threatening deterioration of the [Covid pneumonia, ID, respiratory, liver] system(s) required my full and direct attention, intervention and personal management. The aggregate critical care time was [32] minutes. This time is in addition to time spent performing reported procedures but includes the following: [x] Data Review and interpretation [x] Patient assessment and monitoring of vital signs [x] Documentation [x] Medication orders and management. Subjective Date of service: 06/11/20 Principal diagnosis: Ac hypoxemic resp failure; COVID-19; Severe Sepsis; Shaggy PNA; Alcohol Abuse Interval history: Brief history; 50 YO Male with Obesity, ETOH Dependence presents to ED for evaluation for shortness of breath, generalized weakness, fatigue, malaise, body aches, decreased exercise tolerance over the past 5 days. EMS was notified and upon arrival the patient was found to be in distress with a pulse oximetry of 76% on room air as well as fever to 103 F. In the ER chest x-ray and was found to have bilateral pneumonia. Patient admitted to medical floor and initiated on pneumonia protocol as well as COVID-19 protocol. Patient severe Covid pneumonia, with persistent severe hypoxemia requiring very high flow oxygen Today on continuous BiPAP, patient is in mild distress, critically ill with very poor prognosis. Patient was on high flow oxygen but could not be maintained above 90 hence patient intubated last night electively 05/17/2020; patient with severe COVID-19 pneumonia, in isolation room Patient is on high flow oxygen, and BiPAP 05/18/20; patient feels slightly better still hypoxic, requiring continuous high flow oxygen and BiPAP Respiratory team trying to wean 05/19/20; patient is severely hypoxemic requiring continuous BiPAP today, complains of generalized weakness Trying to wean off high flow oxygen, patient is in isolation 05/20/2020; patient remains on high flow oxygen/BiPAP/100% nonrebreather. Still is hypoxemic Has sinus tachycardia patient in mild distress Wean off high flow oxygen as tolerated, pulmonary critical following 05/21/20; patient is critically ill, on continuous BiPAP remains hypoxemic in mild distress Patient has severe Covid Pneumonia with persistent hypoxemia and poor prognosis 05/22/2020 Patient was intubated last night because of persistent hypoxemia Objective - Constitutional Vitals: Vital Signs - 12hr 06/11/20 06/11/20 06/11/20 08:00 09:00 10:00 Temperature 98.3 F Pulse Rate 100 H 65 110 H Pulse Rate [ 93 H From Monitor] Pulse Rate [ 93 H Right Dorsalis Pedis] Respiratory 30 H 30 H 30 H Rate Blood Pressure 106/65 114/68 104/65 O2 Sat by Pulse 96 96 92 Oximetry 06/11/20 06/11/20 06/11/20 11:00 11:50 12:00 Temperature 98.0 F Pulse Rate 98 H 64 83 Pulse Rate [ 72 From Monitor] Pulse Rate [ 72 Right Dorsalis Pedis] Respiratory 30 H 30 H Rate Blood Pressure 107/69 87/50 112/69 O2 Sat by Pulse 94 98 93 Oximetry 06/11/20 06/11/20 06/11/20 13:00 14:00 15:01 Temperature Pulse Rate 64 54 L 56 L Pulse Rate [ From Monitor] Pulse Rate [ Right Dorsalis Pedis] Respiratory 30 H 30 H 30 H Rate Blood Pressure 112/69 132/80 87/50 O2 Sat by Pulse 93 99 99 Oximetry 12/10/2606/11/20 06/11/20 16:00 16:23 17:00 Temperature 98.2 F Pulse Rate 63 64 63 Pulse Rate [ 63 From Monitor] Pulse Rate [ 63 Right Dorsalis Pedis] Respiratory 30 H 30 H Rate Blood Pressure 127/77 129/76 132/76 O2 Sat by Pulse 97 98 96 Oximetry - Labs CBC & Chem 7: 06/09/20 07:55 06/09/20 07:55 Labs: Abnormal lab results 06/11/20 06/11/20 06/11/20 Range/Units 00:04 04:38 05:21 ABG pH 7.479 H (7.320-7.450) POC ABG pO2 76.7 L (83-108) mmHg ABG Hemoglobin 9.8 L (12.0-17.5) ABG Sodium 135.8 L (136.0-145.0) mmol/L ABG Glucose 238 H (65-95) mg/dL POC Glucose 178 H 215 H (70-105) mg/dL Triglycerides (2-149) mg/dL Arterial Blood Glucose 238 H (65-95) mg/dL 06/11/20 06/11/20 06/11/20 Range/Units 06:52 11:50 17:49 ABG pH (7.320-7.450) POC ABG pO2 (83-108) mmHg ABG Hemoglobin (12.0-17.5) ABG Sodium (136.0-145.0) mmol/L ABG Glucose (65-95) mg/dL POC Glucose 187 H 211 H (70-105) mg/dL Triglycerides 331 H (2-149) mg/dL Arterial Blood Glucose (65-95) mg/dL
[2020-06-11] MEDS: POLYETHYLENE GLYCOL 3350 17 GM POWDER PO SCH (21:25)
[2020-06-12] MEDS: INSULIN LISPRO 100 UNIT/ML VIAL 3 mL SUB-Q SCH ×4 (00:20→19:40)
[2020-06-12] MEDS: METOPROLOL TARTRATE 5 MG/5 ML INJ IV PRN (00:22)
[2020-06-12] MEDS: PROPOFOL 500 MG/50 ML IV SCH ×7 (00:24→23:39)
[2020-06-12] MEDS: fentaNYL DRIP Premix 2,000 MCG/100 ML BAG IV SCH ×7 (00:25→23:40)
[2020-06-12] MEDS: NORepinephrine/NS 4 MG-250 ML 4 MG/250 ML BAG IV SCH ×3 (01:41→23:41)
[2020-06-12] MEDS: MIDAZOLAM 100 MG in SODIUM CHLORIDE 0.9% 80 ML IV SCH (05:36)
[2020-06-12] MEDS: methylPREDNISolone Sod Succinate 40 MG/1 ML INJ IV SCH ×2 (05:42→18:07)
[2020-06-12] MEDS: METOCLOPRAMIDE 10 MG/2 ML INJ IV SCH ×4 (05:44→22:46)
[2020-06-12] MEDS: DOCUSATE SODIUM 100 MG/10 ML ORAL LIQD PO SCH ×2 (11:35→22:45)
[2020-06-12] MEDS: FAMOTIDINE 20 MG TAB PO SCH ×2 (11:35→22:46)
[2020-06-12] MEDS: FOLIC ACID 1 MG TAB PO SCH (11:36)
[2020-06-12] MEDS: SENNOSIDES 8.6 MG TAB PO SCH ×2 (11:36→22:44)
[2020-06-12] MEDS: QUEtiapine 100 MG TAB PO SCH ×2 (11:36→22:45)
[2020-06-12] MEDS: ENOXAPARIN 120 MG/0.8 ML INJ SUB-Q SCH ×2 (11:36→22:45)
--- NOTE | 2020-06-12 14:01 | Progress Note ---
Assessment and Plan Acute hypoxemic respiratory failure due to COVID-19 Severe Sepsis Bilateral pneumonia Acute kidney injury (SEN) with acute tubular necrosis (ATN) Alcohol dependence Elevated liver function tests - reduced peep to 12 - continue to wean Levophed for target MAP > 65 mmHg (@ 8 sergio's/min) - continue to wean supplemental oxygen for target O2 sat's > 92% acutely - ETT day # 22; he will need a tracheostomy once numbers better - continue care as below otherwise; - continue Daily SAT and SBT assessment as tolerated - VAP bundle addressed - continue lung protective strategies - continue bronchodilators with pulmonary hygiene per RT - wean per pulmonary driven protocols otherwise - accuchecks with glycemic control per SSI (While critically ill target blood glucose of 140-180 mg/dL; avoid hypoglycemia) - sedation prn for target RASS -1 to -2 - continue enteral nutritional support at goal rate as tolerated - continue airborne and contact isolation - follow repeat COVID-19 testing - continue Zinc & Vit C supplementaion - continue systemic steroids for Asthma / severe COVID infection - Prone positioning as tolerated - continue empiric full dose anticoagulation re: elevated d-dimers / hypercoagulable state - NOT a candidate for COVID convalescent plasma - continue systemic steroids X >/= 10 days - complete remdesivir dosing (total 5 days) - Monitor liver function test on Remdesivir - trend inflammatory markers - ferritin, Ddimer, CRP, LDH; to aid clinical decision making - empiric AB's coverage per ID rec's otherwise - accuchecks with glycemic control per SSI (While critically ill target blood glucose of 140-180 mg/dL; avoid hypoglycemia) - avoid nephrotoxins, renally dose all medications - continue to avoid benzodiazepine's, reduce the possibility of delirium - prn analgesia per CPOT score - Maintenance of sleep-wake cycle, avoid delirium - continue to avoid benzodiazepine's, reduce the possibility of delirium - aspiration precautions - G.I. & VTE prophylaxis - PT/OT/ROM exercises - continue mobility protocols for pressure ulcer prophylaxis - Monitor hemodynamics closely - continue other care per attending / other consultants - discharge planning ongoing concurrently .... Re-evaluate in am & prn CONDITION: CRITICAL PROGNOSIS: GUARDED CODE STATUS: FULL CODE The high probability of a clinically significant, sudden or life-threatening deterioration of the [respiratory, cardiovascular, hematologic & neurologic] system(s) required my full and direct attention, intervention and personal management. The aggregate critical care time was [36] minutes without overlap. Time includes spent on; [x] Data Review and interpretation [x] Patient assessment and monitoring of vital signs [x] Documentation [x] Medication orders and management Subjective Date of service: 06/12/20 Principal diagnosis: Ac hypoxemic resp failure; COVID-19; Severe Sepsis; Shaggy PNA; Alcohol Abuse Interval history: Patient is seen today for: Acute hypoxemic respiratory failure due to COVID-19; Severe Sepsis; Bilateral pneumonia; Alcohol dependence; Elevated liver function tests Seen and examined at bedside; 24hour events reviewed; nursing and respiratory care staff consulted; no adverse overnight events reported to me; resting in bed; remains on MVS; FiO2 down to 40% with peep at 14; appropriately responsive during SAT; no emesis or overt aspiration Objective Vital Signs - 12hr 06/12/20 06/12/20 06/12/20 03:01 04:00 05:01 Temperature 98.5 F Pulse Rate 103 H 68 Pulse Rate [ 106 H From Monitor] Pulse Rate [ 106 H Right Dorsalis Pedis] Respiratory 30 H 30 H Rate Blood Pressure 81/47 128/65 122/63 O2 Sat by Pulse 98 100 97 Oximetry 06/12/20 06/12/20 06/12/20 05:32 06:00 07:00 Temperature Pulse Rate 114 H 96 H 68 Pulse Rate [ From Monitor] Pulse Rate [ Right Dorsalis Pedis] Respiratory 20 30 H Rate Blood Pressure 146/93 133/90 141/84 O2 Sat by Pulse 91 100 97 Oximetry 06/12/20 06/12/20 06/12/20 08:00 08:40 09:00 Temperature 98.1 F Pulse Rate 57 L 98 H 56 L Pulse Rate [ From Monitor] Pulse Rate [ Right Dorsalis Pedis] Respiratory 30 H 30 H Rate Blood Pressure 143/85 156/87 146/89 O2 Sat by Pulse 98 99 97 Oximetry 06/12/20 06/12/20 06/12/20 10:00 11:00 12:00 Temperature 97.7 F Pulse Rate 66 77 104 H Pulse Rate [ From Monitor] Pulse Rate [ Right Dorsalis Pedis] Respiratory 29 H 30 H 17 Rate Blood Pressure 156/87 123/77 112/67 O2 Sat by Pulse 100 96 97 Oximetry 06/12/20 12:11 Temperature Pulse Rate 123 H Pulse Rate [ From Monitor] Pulse Rate [ Right Dorsalis Pedis] Respiratory Rate Blood Pressure 103/63 O2 Sat by Pulse 96 Oximetry Constitutional: no acute distress, asleep, other (middle aged obese male with normal respiratory effort at rest on MVS) Eyes: non-icteric ENT: oropharynx moist, other (ETT 24 cm CHILO) Neck: supple, no JVD Effort: normal Ascultation: Bilateral: diminished breath sounds, rhonchi Percussion: Bilateral: not dull Cardiovascular: regular rate and rhythm Gastrointestinal: normoactive bowel sounds, soft, non-tender, non-distended (protuberant) Integumentary: normal Extremities: no cyanosis, no edema, pulses normal, no ischemia or petechiae Neurologic: non-focal exam, pupils equal and round, CN II-XII normal, motor strength normal and, other (sedated) Psychiatric: other (sedated) CBC and BMP: 06/09/20 07:55 06/09/20 07:55 ABG, PT/INR, D-dimer: ABG ABG pH 7.486 (7.320-7.450) H 06/12/20 04:52 POC ABG pCO2 47.3 mmHg (32.0-48.0) 06/12/20 04:52 ABG pCO2 69.6 mm Hg 06/05/20 12:35 POC ABG pO2 85.6 mmHg (83-108) 06/12/20 04:52 ABG pO2 127.9 mm Hg (80.0-90.0) H 06/05/20 12:35 POC ABG HCO3 34.9 06/12/20 04:52 ABG O2 Saturation 98.3 % (95.0-99.0) 06/05/20 12:35 PT/INR, D-dimer D-Dimer 1887.82 ng/mlDDU (0-234) H 05/20/20 08:16 Abnormal lab findings: Abnormal Labs 05/09/20 05/09/20 05/09/20 12:59 12:59 12:59 WBC 11.8 H RBC Hgb Hct MCV 96 H MCH 34 H MCHC 35 H RDW Lymph % (Auto) 6.9 L Lymph # (Auto) 0.8 L Seg Neutrophils % 87.5 H Seg Neuts % (Manual) Lymphocytes % (Manual) Nucleated RBC % Seg Neutrophils # 10.3 H Seg Neutrophils # Man Lymphocytes # (Manual) D-Dimer ABG pH POC ABG pCO2 POC ABG pO2 ABG pO2 ABG HCO3 ABG O2 Saturation ABG Base Excess ABG Hemoglobin ABG Oxyhemoglobin ABG Sodium ABG Potassium ABG Chloride ABG Glucose Oxyhemoglobin Sodium 130 L Potassium 3.5 L Chloride 86.4 L Carbon Dioxide BUN 33 H Creatinine 2.3 H Glucose 156 H POC Glucose Lactic Acid Calcium Magnesium Ferritin Total Bilirubin 3.40 H Direct Bilirubin 1.7 H AST 385 H ALT 134 H Alkaline Phosphatase Lactate Dehydrogenase C-Reactive Protein Total Protein Albumin 3.0 L Triglycerides Arterial Blood Glucose Arterial Blood Ionized Calcium Urine WBC (Auto) Coronavirus (PCR) SARS-CoV-2 IgG Ab 05/09/20 05/09/20 05/09/20 12:59 12:59 12:59 WBC RBC Hgb Hct MCV MCH MCHC RDW Lymph % (Auto) Lymph # (Auto) Seg Neutrophils % Seg Neuts % (Manual) Lymphocytes % (Manual) Nucleated RBC % Seg Neutrophils # Seg Neutrophils # Man Lymphocytes # (Manual) D-Dimer 3242.51 H ABG pH POC ABG pCO2 POC ABG pO2 ABG pO2 ABG HCO3 ABG O2 Saturation ABG Base Excess ABG Hemoglobin ABG Oxyhemoglobin ABG Sodium ABG Potassium ABG Chloride ABG Glucose Oxyhemoglobin Sodium Potassium Chloride Carbon Dioxide BUN Creatinine Glucose 158 H POC Glucose Lactic Acid 3.50 H* Calcium Magnesium Ferritin Total Bilirubin Direct Bilirubin AST ALT Alkaline Phosphatase Lactate Dehydrogenase 2166 H C-Reactive Protein 39.00 H Total Protein Albumin Triglycerides Arterial Blood Glucose Arterial Blood Ionized Calcium Urine WBC (Auto) Coronavirus (PCR) SARS-CoV-2 IgG Ab 05/09/20 05/09/20 05/09/20 12:59 14:20 14:20 WBC RBC Hgb Hct MCV MCH MCHC RDW Lymph % (Auto) Lymph # (Auto) Seg Neutrophils % Seg Neuts % (Manual) Lymphocytes % (Manual) Nucleated RBC % Seg Neutrophils # Seg Neutrophils # Man Lymphocytes # (Manual) D-Dimer 2861.78 H ABG pH POC ABG pCO2 POC ABG pO2 ABG pO2 ABG HCO3 ABG O2 Saturation ABG Base Excess ABG Hemoglobin ABG Oxyhemoglobin ABG Sodium ABG Potassium ABG Chloride ABG Glucose Oxyhemoglobin Sodium Potassium Chloride Carbon Dioxide BUN Creatinine Glucose POC Glucose Lactic Acid 2.20 H* Calcium Magnesium Ferritin 52421.0 H Total Bilirubin Direct Bilirubin AST ALT Alkaline Phosphatase Lactate Dehydrogenase C-Reactive Protein Total Protein Albumin Triglycerides Arterial Blood Glucose Arterial Blood Ionized Calcium Urine WBC (Auto) Coronavirus (PCR) SARS-CoV-2 IgG Ab 05/09/20 05/09/20 05/09/20 14:20 14:20 15:56 WBC RBC Hgb Hct MCV MCH MCHC RDW Lymph % (Auto) Lymph # (Auto) Seg Neutrophils % Seg Neuts % (Manual) Lymphocytes % (Manual) Nucleated RBC % Seg Neutrophils # Seg Neutrophils # Man Lymphocytes # (Manual) D-Dimer ABG pH POC ABG pCO2 POC ABG pO2 57.3 L ABG pO2 ABG HCO3 ABG O2 Saturation ABG Base Excess ABG Hemoglobin ABG Oxyhemoglobin 86.3 L ABG Sodium 129.9 L ABG Potassium ABG Chloride ABG Glucose 146 H Oxyhemoglobin Sodium Potassium Chloride Carbon Dioxide BUN Creatinine Glucose 143 H POC Glucose Lactic Acid Calcium Magnesium Ferritin 63108.0 H Total Bilirubin Direct Bilirubin AST ALT Alkaline Phosphatase Lactate Dehydrogenase 1953 H C-Reactive Protein 33.50 H Total Protein Albumin Triglycerides Arterial Blood Glucose 146 H Arterial Blood Ionized Calcium 3.9 L Urine WBC (Auto) Coronavirus (PCR) SARS-CoV-2 IgG Ab 05/10/20 05/10/20 05/10/20 10:32 10:32 18:50 WBC 15.4 H RBC Hgb Hct MCV 97 H MCH 33 H MCHC RDW 13.1 L Lymph % (Auto) Lymph # (Auto) Seg Neutrophils % Seg Neuts % (Manual) 89.0 H Lymphocytes % (Manual) 8.0 L Nucleated RBC % Seg Neutrophils # Seg Neutrophils # Man 13.7 H Lymphocytes # (Manual) D-Dimer ABG pH POC ABG pCO2 POC ABG pO2 ABG pO2 ABG HCO3 ABG O2 Saturation ABG Base Excess ABG Hemoglobin ABG Oxyhemoglobin ABG Sodium ABG Potassium ABG Chloride ABG Glucose Oxyhemoglobin Sodium 136 L Potassium Chloride 97.4 L Carbon Dioxide BUN 37 H Creatinine 1.7 H Glucose 209 H POC Glucose Lactic Acid Calcium Magnesium Ferritin > 2000.0 H Total Bilirubin Direct Bilirubin AST ALT Alkaline Phosphatase Lactate Dehydrogenase C-Reactive Protein Total Protein Albumin Triglycerides Arterial Blood Glucose Arterial Blood Ionized Calcium Urine WBC (Auto) Coronavirus (PCR) SARS-CoV-2 IgG Ab 05/10/20 05/10/20 05/10/20 18:50 19:00 Unknown WBC RBC Hgb Hct MCV MCH MCHC RDW Lymph % (Auto) Lymph # (Auto) Seg Neutrophils % Seg Neuts % (Manual) Lymphocytes % (Manual) Nucleated RBC % Seg Neutrophils # Seg Neutrophils # Man Lymphocytes # (Manual) D-Dimer > 37731 H ABG pH POC ABG pCO2 POC ABG pO2 ABG pO2 ABG HCO3 ABG O2 Saturation ABG Base Excess ABG Hemoglobin ABG Oxyhemoglobin ABG Sodium ABG Potassium ABG Chloride ABG Glucose Oxyhemoglobin Sodium Potassium Chloride Carbon Dioxide BUN Creatinine Glucose POC Glucose Lactic Acid Calcium Magnesium Ferritin Total Bilirubin Direct Bilirubin AST ALT Alkaline Phosphatase Lactate Dehydrogenase 1879 H C-Reactive Protein 24.80 H Total Protein Albumin Triglycerides Arterial Blood Glucose Arterial Blood Ionized Calcium Urine WBC (Auto) 11.0 H Coronavirus (PCR) SARS-CoV-2 IgG Ab 05/10/20 05/11/20 05/11/20 Unknown 07:30 07:30 WBC RBC Hgb Hct MCV MCH MCHC RDW Lymph % (Auto) Lymph # (Auto) Seg Neutrophils % Seg Neuts % (Manual) Lymphocytes % (Manual) Nucleated RBC % Seg Neutrophils # Seg Neutrophils # Man Lymphocytes # (Manual) D-Dimer > 2000 H ABG pH POC ABG pCO2 POC ABG pO2 ABG pO2 ABG HCO3 ABG O2 Saturation ABG Base Excess ABG Hemoglobin ABG Oxyhemoglobin ABG Sodium ABG Potassium ABG Chloride ABG Glucose Oxyhemoglobin Sodium Potassium Chloride 96.3 L Carbon Dioxide BUN 36 H Creatinine Glucose 161 H POC Glucose Lactic Acid Calcium 8.3 L Magnesium Ferritin Total Bilirubin 1.50 H Direct Bilirubin 0.6 H AST 178 H ALT 111 H Alkaline Phosphatase Lactate Dehydrogenase C-Reactive Protein Total Protein Albumin 3.0 L Triglycerides Arterial Blood Glucose Arterial Blood Ionized Calcium Urine WBC (Auto) Coronavirus (PCR) Positive A SARS-CoV-2 IgG Ab 05/11/20 05/11/20 05/11/20 07:30 07:30 07:30 WBC RBC Hgb Hct MCV MCH MCHC RDW Lymph % (Auto) Lymph # (Auto) Seg Neutrophils % Seg Neuts % (Manual) Lymphocytes % (Manual) Nucleated RBC % Seg Neutrophils # Seg Neutrophils # Man Lymphocytes # (Manual) D-Dimer ABG pH POC ABG pCO2 POC ABG pO2 ABG pO2 ABG HCO3 ABG O2 Saturation ABG Base Excess ABG Hemoglobin ABG Oxyhemoglobin ABG Sodium ABG Potassium ABG Chloride ABG Glucose Oxyhemoglobin Sodium Potassium Chloride Carbon Dioxide BUN Creatinine Glucose POC Glucose Lactic Acid Calcium Magnesium Ferritin 07755.0 H Total Bilirubin Direct Bilirubin AST ALT Alkaline Phosphatase Lactate Dehydrogenase 1523 H C-Reactive Protein 12.90 H Total Protein Albumin Triglycerides Arterial Blood Glucose Arterial Blood Ionized Calcium Urine WBC (Auto) Coronavirus (PCR) SARS-CoV-2 IgG Ab Reactive A 05/13/20 05/13/20 05/15/20 05:20 05:20 08:15 WBC RBC Hgb Hct MCV MCH MCHC RDW Lymph % (Auto) Lymph # (Auto) Seg Neutrophils % Seg Neuts % (Manual) Lymphocytes % (Manual) Nucleated RBC % Seg Neutrophils # Seg Neutrophils # Man Lymphocytes # (Manual) D-Dimer > 90959 H 5318.28 H ABG pH POC ABG pCO2 POC ABG pO2 ABG pO2 ABG HCO3 ABG O2 Saturation ABG Base Excess ABG Hemoglobin ABG Oxyhemoglobin ABG Sodium ABG Potassium ABG Chloride ABG Glucose Oxyhemoglobin Sodium Potassium Chloride Carbon Dioxide 32 H BUN 30 H Creatinine Glucose 156 H POC Glucose Lactic Acid Calcium Magnesium 2.60 H Ferritin Total Bilirubin 1.40 H Direct Bilirubin AST 121 H ALT 119 H Alkaline Phosphatase Lactate Dehydrogenase 957 H C-Reactive Protein 4.00 H Total Protein Albumin 3.0 L Triglycerides Arterial Blood Glucose Arterial Blood Ionized Calcium Urine WBC (Auto) Coronavirus (PCR) SARS-CoV-2 IgG Ab 05/15/20 05/15/20 05/15/20 08:15 08:15 08:15 WBC 12.4 H RBC Hgb Hct MCV 98 H MCH 33 H MCHC RDW Lymph % (Auto) 9.7 L Lymph # (Auto) Seg Neutrophils % 86.8 H Seg Neuts % (Manual) Lymphocytes % (Manual) Nucleated RBC % Seg Neutrophils # 10.8 H Seg Neutrophils # Man Lymphocytes # (Manual) D-Dimer ABG pH POC ABG pCO2 POC ABG pO2 ABG pO2 ABG HCO3 ABG O2 Saturation ABG Base Excess ABG Hemoglobin ABG Oxyhemoglobin ABG Sodium ABG Potassium ABG Chloride ABG Glucose Oxyhemoglobin Sodium Potassium Chloride 94.8 L Carbon Dioxide 32 H BUN 22 H Creatinine Glucose 115 H POC Glucose Lactic Acid Calcium 8.3 L Magnesium Ferritin 2494.0 H Total Bilirubin Direct Bilirubin AST 73 H ALT 121 H Alkaline Phosphatase Lactate Dehydrogenase 835 H C-Reactive Protein 3.40 H Total Protein 6.1 L Albumin 3.0 L Triglycerides Arterial Blood Glucose Arterial Blood Ionized Calcium Urine WBC (Auto) Coronavirus (PCR) SARS-CoV-2 IgG Ab 05/17/20 05/17/20 05/17/20 05:50 05:50 05:50 WBC RBC Hgb Hct MCV MCH MCHC RDW Lymph % (Auto) Lymph # (Auto) Seg Neutrophils % Seg Neuts % (Manual) Lymphocytes % (Manual) Nucleated RBC % Seg Neutrophils # Seg Neutrophils # Man Lymphocytes # (Manual) D-Dimer 2911.42 H ABG pH POC ABG pCO2 POC ABG pO2 ABG pO2 ABG HCO3 ABG O2 Saturation ABG Base Excess ABG Hemoglobin ABG Oxyhemoglobin ABG Sodium ABG Potassium ABG Chloride ABG Glucose Oxyhemoglobin Sodium 136 L Potassium Chloride 96.0 L Carbon Dioxide 34 H BUN 22 H Creatinine Glucose 140 H POC Glucose Lactic Acid Calcium Magnesium Ferritin 2082.0 H Total Bilirubin Direct Bilirubin AST ALT 75 H Alkaline Phosphatase Lactate Dehydrogenase 601 H C-Reactive Protein 2.70 H Total Protein Albumin 2.9 L Triglycerides Arterial Blood Glucose Arterial Blood Ionized Calcium Urine WBC (Auto) Coronavirus (PCR) SARS-CoV-2 IgG Ab 05/17/20 05/18/20 05/20/20 05:50 12:22 08:16 WBC RBC Hgb Hct MCV 98 H MCH 33 H MCHC RDW Lymph % (Auto) 8.0 L Lymph # (Auto) 0.8 L Seg Neutrophils % 89.3 H Seg Neuts % (Manual) Lymphocytes % (Manual) Nucleated RBC % Seg Neutrophils # 8.8 H Seg Neutrophils # Man Lymphocytes # (Manual) D-Dimer 1887.82 H ABG pH POC ABG pCO2 POC ABG pO2 ABG pO2 ABG HCO3 ABG O2 Saturation ABG Base Excess ABG Hemoglobin ABG Oxyhemoglobin ABG Sodium ABG Potassium ABG Chloride ABG Glucose Oxyhemoglobin Sodium Potassium Chloride Carbon Dioxide BUN Creatinine Glucose POC Glucose 178 H Lactic Acid Calcium Magnesium Ferritin Total Bilirubin Direct Bilirubin AST ALT Alkaline Phosphatase Lactate Dehydrogenase C-Reactive Protein Total Protein Albumin Triglycerides Arterial Blood Glucose Arterial Blood Ionized Calcium Urine WBC (Auto) Coronavirus (PCR) SARS-CoV-2 IgG Ab 05/20/20 05/20/20 05/21/20 08:16 08:16 21:10 WBC RBC Hgb Hct MCV MCH MCHC RDW Lymph % (Auto) Lymph # (Auto) Seg Neutrophils % Seg Neuts % (Manual) Lymphocytes % (Manual) Nucleated RBC % Seg Neutrophils # Seg Neutrophils # Man Lymphocytes # (Manual) D-Dimer ABG pH 7.483 H POC ABG pCO2 POC ABG pO2 ABG pO2 50.0 L ABG HCO3 27.0 H ABG O2 Saturation 86.2 L ABG Base Excess 3.7 H ABG Hemoglobin ABG Oxyhemoglobin ABG Sodium ABG Potassium ABG Chloride ABG Glucose Oxyhemoglobin 84.2 L Sodium Potassium Chloride Carbon Dioxide BUN Creatinine Glucose POC Glucose Lactic Acid Calcium Magnesium Ferritin 1960.0 H Total Bilirubin Direct Bilirubin AST ALT Alkaline Phosphatase Lactate Dehydrogenase 705 H C-Reactive Protein 3.10 H Total Protein Albumin Triglycerides Arterial Blood Glucose Arterial Blood Ionized Calcium Urine WBC (Auto) Coronavirus (PCR) SARS-CoV-2 IgG Ab 05/22/20 05/22/20 05/22/20 04:01 07:53 07:53 WBC 19.2 H RBC Hgb Hct MCV 98 H MCH 34 H MCHC RDW Lymph % (Auto) Lymph # (Auto) Seg Neutrophils % Seg Neuts % (Manual) 96.0 H Lymphocytes % (Manual) 1.0 L Nucleated RBC % Seg Neutrophils # Seg Neutrophils # Man 18.4 H Lymphocytes # (Manual) 0.2 L D-Dimer ABG pH POC ABG pCO2 53.8 H POC ABG pO2 125.5 H ABG pO2 ABG HCO3 ABG O2 Saturation ABG Base Excess ABG Hemoglobin ABG Oxyhemoglobin ABG Sodium 131.8 L ABG Potassium 4.8 H ABG Chloride 94.0 L ABG Glucose 163 H Oxyhemoglobin Sodium 131 L Potassium Chloride 93.4 L Carbon Dioxide BUN 40 H Creatinine Glucose 176 H POC Glucose Lactic Acid Calcium Magnesium 2.70 H Ferritin Total Bilirubin 1.80 H Direct Bilirubin AST 45 H ALT 116 H Alkaline Phosphatase 181 H Lactate Dehydrogenase C-Reactive Protein Total Protein Albumin 2.6 L Triglycerides Arterial Blood Glucose 163 H Arterial Blood Ionized Calcium 4.5 L Urine WBC (Auto) Coronavirus (PCR) SARS-CoV-2 IgG Ab 11/15/20 11/16/20 11/16/20 04:17 03:07 04:08 WBC RBC Hgb Hct MCV MCH MCHC RDW Lymph % (Auto) Lymph # (Auto) Seg Neutrophils % Seg Neuts % (Manual) Lymphocytes % (Manual) Nucleated RBC % Seg Neutrophils # Seg Neutrophils # Man Lymphocytes # (Manual) D-Dimer ABG pH 7.328 L POC ABG pCO2 POC ABG pO2 ABG pO2 72.8 L 73.4 L ABG HCO3 31.0 H 34.0 H ABG O2 Saturation 93.5 L ABG Base Excess 3.5 H 7.7 H ABG Hemoglobin 13.3 L 12.1 L ABG Oxyhemoglobin ABG Sodium ABG Potassium ABG Chloride ABG Glucose Oxyhemoglobin 91.5 L 94.3 L Sodium Potassium Chloride Carbon Dioxide BUN Creatinine Glucose POC Glucose 155 H Lactic Acid Calcium Magnesium Ferritin Total Bilirubin Direct Bilirubin AST ALT Alkaline Phosphatase Lactate Dehydrogenase C-Reactive Protein Total Protein Albumin Triglycerides Arterial Blood Glucose Arterial Blood Ionized Calcium Urine WBC (Auto) Coronavirus (PCR) SARS-CoV-2 IgG Ab 05/24/20 05/24/20 05/24/20 09:33 12:21 17:52 WBC RBC Hgb Hct MCV MCH MCHC RDW Lymph % (Auto) Lymph # (Auto) Seg Neutrophils % Seg Neuts % (Manual) Lymphocytes % (Manual) Nucleated RBC % Seg Neutrophils # Seg Neutrophils # Man Lymphocytes # (Manual) D-Dimer ABG pH POC ABG pCO2 POC ABG pO2 ABG pO2 ABG HCO3 ABG O2 Saturation ABG Base Excess ABG Hemoglobin ABG Oxyhemoglobin ABG Sodium ABG Potassium ABG Chloride ABG Glucose Oxyhemoglobin Sodium Potassium Chloride Carbon Dioxide 34 H D BUN 28 H Creatinine 0.7 L Glucose 168 H POC Glucose 173 H 164 H Lactic Acid Calcium Magnesium Ferritin Total Bilirubin Direct Bilirubin AST ALT Alkaline Phosphatase Lactate Dehydrogenase C-Reactive Protein Total Protein Albumin Triglycerides Arterial Blood Glucose Arterial Blood Ionized Calcium Urine WBC (Auto) Coronavirus (PCR) SARS-CoV-2 IgG Ab 05/24/20 05/25/20 05/25/20 23:47 04:29 05:46 WBC RBC Hgb Hct MCV MCH MCHC RDW Lymph % (Auto) Lymph # (Auto) Seg Neutrophils % Seg Neuts % (Manual) Lymphocytes % (Manual) Nucleated RBC % Seg Neutrophils # Seg Neutrophils # Man Lymphocytes # (Manual) D-Dimer ABG pH POC ABG pCO2 68.6 H POC ABG pO2 ABG pO2 ABG HCO3 ABG O2 Saturation ABG Base Excess ABG Hemoglobin ABG Oxyhemoglobin ABG Sodium ABG Potassium 4.7 H ABG Chloride ABG Glucose 226 H Oxyhemoglobin Sodium Potassium Chloride Carbon Dioxide BUN Creatinine Glucose POC Glucose 171 H 201 H Lactic Acid Calcium Magnesium Ferritin Total Bilirubin Direct Bilirubin AST ALT Alkaline Phosphatase Lactate Dehydrogenase C-Reactive Protein Total Protein Albumin Triglycerides Arterial Blood Glucose 226 H Arterial Blood Ionized Calcium Urine WBC (Auto) Coronavirus (PCR) SARS-CoV-2 IgG Ab 05/25/20 05/25/20 05/25/20 08:37 08:37 12:38 WBC 12.0 H RBC 3.64 L Hgb Hct MCV 99 H MCH 33 H MCHC RDW Lymph % (Auto) Lymph # (Auto) Seg Neutrophils % Seg Neuts % (Manual) Lymphocytes % (Manual) Nucleated RBC % Seg Neutrophils # Seg Neutrophils # Man Lymphocytes # (Manual) D-Dimer ABG pH POC ABG pCO2 POC ABG pO2 ABG pO2 ABG HCO3 ABG O2 Saturation ABG Base Excess ABG Hemoglobin ABG Oxyhemoglobin ABG Sodium ABG Potassium ABG Chloride ABG Glucose Oxyhemoglobin Sodium Potassium Chloride 97.3 L Carbon Dioxide 35 H BUN 25 H Creatinine 0.7 L Glucose 191 H POC Glucose 182 H Lactic Acid Calcium Magnesium Ferritin Total Bilirubin Direct Bilirubin AST ALT Alkaline Phosphatase Lactate Dehydrogenase C-Reactive Protein Total Protein Albumin Triglycerides Arterial Blood Glucose Arterial Blood Ionized Calcium Urine WBC (Auto) Coronavirus (PCR) SARS-CoV-2 IgG Ab 05/25/20 05/26/20 05/26/20 18:16 00:06 04:50 WBC RBC Hgb Hct MCV MCH MCHC RDW Lymph % (Auto) Lymph # (Auto) Seg Neutrophils % Seg Neuts % (Manual) Lymphocytes % (Manual) Nucleated RBC % Seg Neutrophils # Seg Neutrophils # Man Lymphocytes # (Manual) D-Dimer ABG pH POC ABG pCO2 POC ABG pO2 ABG pO2 221.5 H ABG HCO3 40.4 H ABG O2 Saturation 99.3 H ABG Base Excess 12.8 H ABG Hemoglobin 10.4 L ABG Oxyhemoglobin ABG Sodium ABG Potassium ABG Chloride ABG Glucose Oxyhemoglobin Sodium Potassium Chloride Carbon Dioxide BUN Creatinine Glucose POC Glucose 176 H 152 H Lactic Acid Calcium Magnesium Ferritin Total Bilirubin Direct Bilirubin AST ALT Alkaline Phosphatase Lactate Dehydrogenase C-Reactive Protein Total Protein Albumin Triglycerides Arterial Blood Glucose Arterial Blood Ionized Calcium Urine WBC (Auto) Coronavirus (PCR) SARS-CoV-2 IgG Ab 05/26/20 05/26/20 05/26/20 06:11 07:51 07:51 WBC 13.4 H RBC 3.64 L Hgb Hct MCV 98 H MCH 33 H MCHC RDW Lymph % (Auto) Lymph # (Auto) Seg Neutrophils % Seg Neuts % (Manual) Lymphocytes % (Manual) Nucleated RBC % Seg Neutrophils # Seg Neutrophils # Man Lymphocytes # (Manual) D-Dimer ABG pH POC ABG pCO2 POC ABG pO2 ABG pO2 ABG HCO3 ABG O2 Saturation ABG Base Excess ABG Hemoglobin ABG Oxyhemoglobin ABG Sodium ABG Potassium ABG Chloride ABG Glucose Oxyhemoglobin Sodium Potassium Chloride 96.6 L Carbon Dioxide 39 H BUN 29 H Creatinine 0.7 L Glucose 174 H POC Glucose 165 H Lactic Acid Calcium Magnesium Ferritin Total Bilirubin Direct Bilirubin AST ALT Alkaline Phosphatase Lactate Dehydrogenase C-Reactive Protein Total Protein Albumin Triglycerides Arterial Blood Glucose Arterial Blood Ionized Calcium Urine WBC (Auto) Coronavirus (PCR) SARS-CoV-2 IgG Ab 05/26/20 05/27/20 05/27/20 23:23 03:43 05:29 WBC RBC Hgb Hct MCV MCH MCHC RDW Lymph % (Auto) Lymph # (Auto) Seg Neutrophils % Seg Neuts % (Manual) Lymphocytes % (Manual) Nucleated RBC % Seg Neutrophils # Seg Neutrophils # Man Lymphocytes # (Manual) D-Dimer ABG pH 7.480 H POC ABG pCO2 52.4 H POC ABG pO2 61.4 L ABG pO2 ABG HCO3 ABG O2 Saturation ABG Base Excess ABG Hemoglobin ABG Oxyhemoglobin ABG Sodium 134.9 L ABG Potassium ABG Chloride 95.0 L ABG Glucose 221 H Oxyhemoglobin Sodium Potassium Chloride Carbon Dioxide BUN Creatinine Glucose POC Glucose 169 H 227 H Lactic Acid Calcium Magnesium Ferritin Total Bilirubin Direct Bilirubin AST ALT Alkaline Phosphatase Lactate Dehydrogenase C-Reactive Protein Total Protein Albumin Triglycerides Arterial Blood Glucose 221 H Arterial Blood Ionized Calcium 4.5 L Urine WBC (Auto) Coronavirus (PCR) SARS-CoV-2 IgG Ab 05/27/20 05/27/20 05/27/20 07:19 12:18 13:50 WBC RBC Hgb Hct MCV MCH MCHC RDW Lymph % (Auto) Lymph # (Auto) Seg Neutrophils % Seg Neuts % (Manual) Lymphocytes % (Manual) Nucleated RBC % Seg Neutrophils # Seg Neutrophils # Man Lymphocytes # (Manual) D-Dimer ABG pH POC ABG pCO2 POC ABG pO2 ABG pO2 ABG HCO3 ABG O2 Saturation ABG Base Excess ABG Hemoglobin ABG Oxyhemoglobin ABG Sodium ABG Potassium ABG Chloride ABG Glucose Oxyhemoglobin Sodium Potassium Chloride Carbon Dioxide BUN Creatinine Glucose POC Glucose 114 H 148 H Lactic Acid Calcium Magnesium Ferritin Total Bilirubin Direct Bilirubin AST ALT Alkaline Phosphatase Lactate Dehydrogenase C-Reactive Protein Total Protein Albumin Triglycerides 247 H Arterial Blood Glucose Arterial Blood Ionized Calcium Urine WBC (Auto) Coronavirus (PCR) SARS-CoV-2 IgG Ab 05/28/20 05/28/20 05/28/20 00:13 04:16 05:22 WBC RBC Hgb Hct MCV MCH MCHC RDW Lymph % (Auto) Lymph # (Auto) Seg Neutrophils % Seg Neuts % (Manual) Lymphocytes % (Manual) Nucleated RBC % Seg Neutrophils # Seg Neutrophils # Man Lymphocytes # (Manual) D-Dimer ABG pH POC ABG pCO2 64.4 H POC ABG pO2 60.5 L ABG pO2 ABG HCO3 ABG O2 Saturation ABG Base Excess ABG Hemoglobin ABG Oxyhemoglobin ABG Sodium ABG Potassium ABG Chloride 95.0 L ABG Glucose 209 H Oxyhemoglobin Sodium Potassium Chloride Carbon Dioxide BUN Creatinine Glucose POC Glucose 155 H 186 H Lactic Acid Calcium Magnesium Ferritin Total Bilirubin Direct Bilirubin AST ALT Alkaline Phosphatase Lactate Dehydrogenase C-Reactive Protein Total Protein Albumin Triglycerides Arterial Blood Glucose 209 H Arterial Blood Ionized Calcium Urine WBC (Auto) Coronavirus (PCR) SARS-CoV-2 IgG Ab 05/28/20 05/28/20 05/29/20 12:45 17:39 00:37 WBC RBC Hgb Hct MCV MCH MCHC RDW Lymph % (Auto) Lymph # (Auto) Seg Neutrophils % Seg Neuts % (Manual) Lymphocytes % (Manual) Nucleated RBC % Seg Neutrophils # Seg Neutrophils # Man Lymphocytes # (Manual) D-Dimer ABG pH POC ABG pCO2 POC ABG pO2 ABG pO2 ABG HCO3 ABG O2 Saturation ABG Base Excess ABG Hemoglobin ABG Oxyhemoglobin ABG Sodium ABG Potassium ABG Chloride ABG Glucose Oxyhemoglobin Sodium Potassium Chloride Carbon Dioxide BUN Creatinine Glucose POC Glucose 143 H 164 H 221 H Lactic Acid Calcium Magnesium Ferritin Total Bilirubin Direct Bilirubin AST ALT Alkaline Phosphatase Lactate Dehydrogenase C-Reactive Protein Total Protein Albumin Triglycerides Arterial Blood Glucose Arterial Blood Ionized Calcium Urine WBC (Auto) Coronavirus (PCR) SARS-CoV-2 IgG Ab 05/29/20 05/29/20 05/29/20 04:15 05:33 12:34 WBC RBC Hgb Hct MCV MCH MCHC RDW Lymph % (Auto) Lymph # (Auto) Seg Neutrophils % Seg Neuts % (Manual) Lymphocytes % (Manual) Nucleated RBC % Seg Neutrophils # Seg Neutrophils # Man Lymphocytes # (Manual) D-Dimer ABG pH 7.463 H POC ABG pCO2 56.3 H POC ABG pO2 81.2 L ABG pO2 ABG HCO3 ABG O2 Saturation ABG Base Excess ABG Hemoglobin ABG Oxyhemoglobin ABG Sodium ABG Potassium ABG Chloride 96.0 L ABG Glucose 194 H Oxyhemoglobin Sodium Potassium Chloride Carbon Dioxide BUN Creatinine Glucose POC Glucose 133 H 221 H Lactic Acid Calcium Magnesium Ferritin Total Bilirubin Direct Bilirubin AST ALT Alkaline Phosphatase Lactate Dehydrogenase C-Reactive Protein Total Protein Albumin Triglycerides Arterial Blood Glucose 194 H Arterial Blood Ionized Calcium 4.5 L Urine WBC (Auto) Coronavirus (PCR) SARS-CoV-2 IgG Ab 05/29/20 05/30/20 05/30/20 18:07 00:12 05:38 WBC RBC Hgb Hct MCV MCH MCHC RDW Lymph % (Auto) Lymph # (Auto) Seg Neutrophils % Seg Neuts % (Manual) Lymphocytes % (Manual) Nucleated RBC % Seg Neutrophils # Seg Neutrophils # Man Lymphocytes # (Manual) D-Dimer ABG pH POC ABG pCO2 POC ABG pO2 ABG pO2 ABG HCO3 ABG O2 Saturation ABG Base Excess ABG Hemoglobin ABG Oxyhemoglobin ABG Sodium ABG Potassium ABG Chloride ABG Glucose Oxyhemoglobin Sodium Potassium Chloride Carbon Dioxide BUN Creatinine Glucose POC Glucose 162 H 190 H 208 H Lactic Acid Calcium Magnesium Ferritin Total Bilirubin Direct Bilirubin AST ALT Alkaline Phosphatase Lactate Dehydrogenase C-Reactive Protein Total Protein Albumin Triglycerides Arterial Blood Glucose Arterial Blood Ionized Calcium Urine WBC (Auto) Coronavirus (PCR) SARS-CoV-2 IgG Ab 05/30/20 05/30/20 05/30/20 09:30 11:35 11:54 WBC 12.4 H RBC 3.48 L Hgb 11.3 L Hct 34.6 L MCV 99 H MCH 33 H MCHC RDW Lymph % (Auto) Lymph # (Auto) Seg Neutrophils % Seg Neuts % (Manual) Lymphocytes % (Manual) Nucleated RBC % Seg Neutrophils # Seg Neutrophils # Man Lymphocytes # (Manual) D-Dimer ABG pH 7.455 H POC ABG pCO2 57.5 H POC ABG pO2 81.5 L ABG pO2 ABG HCO3 ABG O2 Saturation ABG Base Excess ABG Hemoglobin ABG Oxyhemoglobin ABG Sodium ABG Potassium ABG Chloride 96.0 L ABG Glucose 204 H Oxyhemoglobin Sodium Potassium Chloride Carbon Dioxide BUN Creatinine Glucose POC Glucose 183 H Lactic Acid Calcium Magnesium Ferritin Total Bilirubin Direct Bilirubin AST ALT Alkaline Phosphatase Lactate Dehydrogenase C-Reactive Protein Total Protein Albumin Triglycerides Arterial Blood Glucose 204 H Arterial Blood Ionized Calcium Urine WBC (Auto) Coronavirus (PCR) SARS-CoV-2 IgG Ab 05/30/20 05/31/20 05/31/20 18:01 00:10 03:22 WBC RBC Hgb Hct MCV MCH MCHC RDW Lymph % (Auto) Lymph # (Auto) Seg Neutrophils % Seg Neuts % (Manual) Lymphocytes % (Manual) Nucleated RBC % Seg Neutrophils # Seg Neutrophils # Man Lymphocytes # (Manual) D-Dimer ABG pH POC ABG pCO2 60.4 H POC ABG pO2 71.5 L ABG pO2 ABG HCO3 ABG O2 Saturation ABG Base Excess ABG Hemoglobin ABG Oxyhemoglobin ABG Sodium ABG Potassium ABG Chloride 96.0 L ABG Glucose 169 H Oxyhemoglobin Sodium Potassium Chloride Carbon Dioxide BUN Creatinine Glucose POC Glucose 184 H 135 H Lactic Acid Calcium Magnesium Ferritin Total Bilirubin Direct Bilirubin AST ALT Alkaline Phosphatase Lactate Dehydrogenase C-Reactive Protein Total Protein Albumin Triglycerides Arterial Blood Glucose 169 H Arterial Blood Ionized Calcium 4.5 L Urine WBC (Auto) Coronavirus (PCR) SARS-CoV-2 IgG Ab 05/31/20 05/31/20 05/31/20 05:24 11:18 14:41 WBC RBC Hgb Hct MCV MCH MCHC RDW Lymph % (Auto) Lymph # (Auto) Seg Neutrophils % Seg Neuts % (Manual) Lymphocytes % (Manual) Nucleated RBC % Seg Neutrophils # Seg Neutrophils # Man Lymphocytes # (Manual) D-Dimer ABG pH POC ABG pCO2 POC ABG pO2 ABG pO2 ABG HCO3 ABG O2 Saturation ABG Base Excess ABG Hemoglobin ABG Oxyhemoglobin ABG Sodium ABG Potassium ABG Chloride ABG Glucose Oxyhemoglobin Sodium Potassium Chloride 96.8 L Carbon Dioxide 37 H BUN 31 H Creatinine 0.6 L Glucose 213 H POC Glucose 164 H 208 H Lactic Acid Calcium Magnesium Ferritin Total Bilirubin Direct Bilirubin AST ALT Alkaline Phosphatase Lactate Dehydrogenase C-Reactive Protein Total Protein Albumin Triglycerides Arterial Blood Glucose Arterial Blood Ionized Calcium Urine WBC (Auto) Coronavirus (PCR) SARS-CoV-2 IgG Ab 05/31/20 05/31/20 06/01/20 17:37 23:47 03:48 WBC RBC Hgb Hct MCV MCH MCHC RDW Lymph % (Auto) Lymph # (Auto) Seg Neutrophils % Seg Neuts % (Manual) Lymphocytes % (Manual) Nucleated RBC % Seg Neutrophils # Seg Neutrophils # Man Lymphocytes # (Manual) D-Dimer ABG pH POC ABG pCO2 59.7 H POC ABG pO2 73.9 L ABG pO2 ABG HCO3 ABG O2 Saturation ABG Base Excess ABG Hemoglobin ABG Oxyhemoglobin ABG Sodium ABG Potassium ABG Chloride 95.0 L ABG Glucose 256 H Oxyhemoglobin Sodium Potassium Chloride Carbon Dioxide BUN Creatinine Glucose POC Glucose 168 H 178 H Lactic Acid Calcium Magnesium Ferritin Total Bilirubin Direct Bilirubin AST ALT Alkaline Phosphatase Lactate Dehydrogenase C-Reactive Protein Total Protein Albumin Triglycerides Arterial Blood Glucose 256 H Arterial Blood Ionized Calcium Urine WBC (Auto) Coronavirus (PCR) SARS-CoV-2 IgG Ab 06/01/20 06/01/20 06/01/20 05:01 07:47 07:47 WBC 14.4 H RBC 3.46 L Hgb 11.1 L Hct 34.3 L MCV 99 H MCH MCHC RDW Lymph % (Auto) Lymph # (Auto) Seg Neutrophils % Seg Neuts % (Manual) 86.0 H Lymphocytes % (Manual) 9.0 L Nucleated RBC % Seg Neutrophils # Seg Neutrophils # Man 12.4 H Lymphocytes # (Manual) D-Dimer ABG pH POC ABG pCO2 POC ABG pO2 ABG pO2 ABG HCO3 ABG O2 Saturation ABG Base Excess ABG Hemoglobin ABG Oxyhemoglobin ABG Sodium ABG Potassium ABG Chloride ABG Glucose Oxyhemoglobin Sodium Potassium Chloride Carbon Dioxide BUN Creatinine Glucose POC Glucose 197 H Lactic Acid Calcium Magnesium Ferritin Total Bilirubin Direct Bilirubin AST ALT Alkaline Phosphatase Lactate Dehydrogenase C-Reactive Protein Total Protein Albumin Triglycerides 244 H Arterial Blood Glucose Arterial Blood Ionized Calcium Urine WBC (Auto) Coronavirus (PCR) SARS-CoV-2 IgG Ab 06/01/20 06/01/20 06/01/20 07:47 11:46 18:15 WBC RBC Hgb Hct MCV MCH MCHC RDW Lymph % (Auto) Lymph # (Auto) Seg Neutrophils % Seg Neuts % (Manual) Lymphocytes % (Manual) Nucleated RBC % Seg Neutrophils # Seg Neutrophils # Man Lymphocytes # (Manual) D-Dimer ABG pH POC ABG pCO2 POC ABG pO2 ABG pO2 ABG HCO3 ABG O2 Saturation ABG Base Excess ABG Hemoglobin ABG Oxyhemoglobin ABG Sodium ABG Potassium ABG Chloride ABG Glucose Oxyhemoglobin Sodium Potassium Chloride 95.4 L Carbon Dioxide 35 H BUN 30 H Creatinine 0.5 L Glucose 214 H POC Glucose 181 H 221 H Lactic Acid Calcium Magnesium Ferritin Total Bilirubin Direct Bilirubin AST 54 H ALT 235 H Alkaline Phosphatase Lactate Dehydrogenase C-Reactive Protein Total Protein Albumin 2.9 L Triglycerides Arterial Blood Glucose Arterial Blood Ionized Calcium Urine WBC (Auto) Coronavirus (PCR) SARS-CoV-2 IgG Ab 06/01/20 06/02/20 06/02/20 23:12 04:00 05:31 WBC RBC Hgb Hct MCV MCH MCHC RDW Lymph % (Auto) Lymph # (Auto) Seg Neutrophils % Seg Neuts % (Manual) Lymphocytes % (Manual) Nucleated RBC % Seg Neutrophils # Seg Neutrophils # Man Lymphocytes # (Manual) D-Dimer ABG pH 7.465 H POC ABG pCO2 POC ABG pO2 ABG pO2 203.4 H ABG HCO3 41.2 H ABG O2 Saturation 99.3 H ABG Base Excess 15.1 H ABG Hemoglobin 11.5 L ABG Oxyhemoglobin ABG Sodium ABG Potassium ABG Chloride ABG Glucose Oxyhemoglobin Sodium Potassium Chloride Carbon Dioxide BUN Creatinine Glucose POC Glucose 197 H 184 H Lactic Acid Calcium Magnesium Ferritin Total Bilirubin Direct Bilirubin AST ALT Alkaline Phosphatase Lactate Dehydrogenase C-Reactive Protein Total Protein Albumin Triglycerides Arterial Blood Glucose Arterial Blood Ionized Calcium Urine WBC (Auto) Coronavirus (PCR) SARS-CoV-2 IgG Ab 06/02/20 06/02/20 06/02/20 11:49 18:06 23:00 WBC RBC Hgb Hct MCV MCH MCHC RDW Lymph % (Auto) Lymph # (Auto) Seg Neutrophils % Seg Neuts % (Manual) Lymphocytes % (Manual) Nucleated RBC % Seg Neutrophils # Seg Neutrophils # Man Lymphocytes # (Manual) D-Dimer ABG pH POC ABG pCO2 POC ABG pO2 ABG pO2 ABG HCO3 ABG O2 Saturation ABG Base Excess ABG Hemoglobin ABG Oxyhemoglobin ABG Sodium ABG Potassium ABG Chloride ABG Glucose Oxyhemoglobin Sodium Potassium Chloride Carbon Dioxide BUN Creatinine Glucose POC Glucose 195 H 177 H 228 H Lactic Acid Calcium Magnesium Ferritin Total Bilirubin Direct Bilirubin AST ALT Alkaline Phosphatase Lactate Dehydrogenase C-Reactive Protein Total Protein Albumin Triglycerides Arterial Blood Glucose Arterial Blood Ionized Calcium Urine WBC (Auto) Coronavirus (PCR) SARS-CoV-2 IgG Ab 06/03/20 06/03/20 06/03/20 03:58 05:19 12:21 WBC RBC Hgb Hct MCV MCH MCHC RDW Lymph % (Auto) Lymph # (Auto) Seg Neutrophils % Seg Neuts % (Manual) Lymphocytes % (Manual) Nucleated RBC % Seg Neutrophils # Seg Neutrophils # Man Lymphocytes # (Manual) D-Dimer ABG pH POC ABG pCO2 POC ABG pO2 ABG pO2 171.0 H ABG HCO3 42.8 H ABG O2 Saturation ABG Base Excess 15.6 H ABG Hemoglobin 12.3 L ABG Oxyhemoglobin ABG Sodium ABG Potassium ABG Chloride ABG Glucose Oxyhemoglobin Sodium Potassium Chloride Carbon Dioxide BUN Creatinine Glucose POC Glucose 122 H 207 H Lactic Acid Calcium Magnesium Ferritin Total Bilirubin Direct Bilirubin AST ALT Alkaline Phosphatase Lactate Dehydrogenase C-Reactive Protein Total Protein Albumin Triglycerides Arterial Blood Glucose Arterial Blood Ionized Calcium Urine WBC (Auto) Coronavirus (PCR) SARS-CoV-2 IgG Ab 06/03/20 06/03/20 06/04/20 17:27 23:50 03:55 WBC RBC Hgb Hct MCV MCH MCHC RDW Lymph % (Auto) Lymph # (Auto) Seg Neutrophils % Seg Neuts % (Manual) Lymphocytes % (Manual) Nucleated RBC % Seg Neutrophils # Seg Neutrophils # Man Lymphocytes # (Manual) D-Dimer ABG pH POC ABG pCO2 POC ABG pO2 ABG pO2 117.2 H ABG HCO3 42.4 H ABG O2 Saturation ABG Base Excess 15.3 H ABG Hemoglobin 10.5 L ABG Oxyhemoglobin ABG Sodium ABG Potassium ABG Chloride ABG Glucose Oxyhemoglobin Sodium Potassium Chloride Carbon Dioxide BUN Creatinine Glucose POC Glucose 157 H 214 H Lactic Acid Calcium Magnesium Ferritin Total Bilirubin Direct Bilirubin AST ALT Alkaline Phosphatase Lactate Dehydrogenase C-Reactive Protein Total Protein Albumin Triglycerides Arterial Blood Glucose Arterial Blood Ionized Calcium Urine WBC (Auto) Coronavirus (PCR) SARS-CoV-2 IgG Ab 06/04/20 06/04/20 06/04/20 05:49 11:41 17:30 WBC RBC Hgb Hct MCV MCH MCHC RDW Lymph % (Auto) Lymph # (Auto) Seg Neutrophils % Seg Neuts % (Manual) Lymphocytes % (Manual) Nucleated RBC % Seg Neutrophils # Seg Neutrophils # Man Lymphocytes # (Manual) D-Dimer ABG pH POC ABG pCO2 POC ABG pO2 ABG pO2 ABG HCO3 ABG O2 Saturation ABG Base Excess ABG Hemoglobin ABG Oxyhemoglobin ABG Sodium ABG Potassium ABG Chloride ABG Glucose Oxyhemoglobin Sodium Potassium Chloride Carbon Dioxide BUN Creatinine Glucose POC Glucose 149 H 233 H 156 H Lactic Acid Calcium Magnesium Ferritin Total Bilirubin Direct Bilirubin AST ALT Alkaline Phosphatase Lactate Dehydrogenase C-Reactive Protein Total Protein Albumin Triglycerides Arterial Blood Glucose Arterial Blood Ionized Calcium Urine WBC (Auto) Coronavirus (PCR) SARS-CoV-2 IgG Ab 06/04/20 06/04/20 06/04/20 19:01 20:53 23:41 WBC RBC 3.18 L Hgb 10.8 L Hct 31.8 L MCV 100 H MCH 34 H MCHC RDW Lymph % (Auto) Lymph # (Auto) Seg Neutrophils % Seg Neuts % (Manual) 86.0 H Lymphocytes % (Manual) 10.0 L Nucleated RBC % 1.0 H Seg Neutrophils # Seg Neutrophils # Man 8.5 H Lymphocytes # (Manual) 1.0 L D-Dimer ABG pH POC ABG pCO2 POC ABG pO2 ABG pO2 ABG HCO3 ABG O2 Saturation ABG Base Excess ABG Hemoglobin ABG Oxyhemoglobin ABG Sodium ABG Potassium ABG Chloride ABG Glucose Oxyhemoglobin Sodium Potassium 3.4 L D Chloride 96.5 L Carbon Dioxide 41 H* BUN 27 H Creatinine 0.5 L Glucose 173 H POC Glucose 217 H Lactic Acid Calcium Magnesium Ferritin Total Bilirubin Direct Bilirubin AST ALT Alkaline Phosphatase Lactate Dehydrogenase C-Reactive Protein Total Protein Albumin Triglycerides Arterial Blood Glucose Arterial Blood Ionized Calcium Urine WBC (Auto) Coronavirus (PCR) SARS-CoV-2 IgG Ab 06/05/20 06/05/20 06/05/20 06:05 11:54 12:35 WBC RBC Hgb Hct MCV MCH MCHC RDW Lymph % (Auto) Lymph # (Auto) Seg Neutrophils % Seg Neuts % (Manual) Lymphocytes % (Manual) Nucleated RBC % Seg Neutrophils # Seg Neutrophils # Man Lymphocytes # (Manual) D-Dimer ABG pH POC ABG pCO2 POC ABG pO2 ABG pO2 127.9 H ABG HCO3 41.1 H ABG O2 Saturation ABG Base Excess 13.0 H ABG Hemoglobin 13.4 L ABG Oxyhemoglobin ABG Sodium ABG Potassium ABG Chloride ABG Glucose Oxyhemoglobin Sodium Potassium Chloride Carbon Dioxide BUN Creatinine Glucose POC Glucose 137 H 211 H Lactic Acid Calcium Magnesium Ferritin Total Bilirubin Direct Bilirubin AST ALT Alkaline Phosphatase Lactate Dehydrogenase C-Reactive Protein Total Protein Albumin Triglycerides Arterial Blood Glucose Arterial Blood Ionized Calcium Urine WBC (Auto) Coronavirus (PCR) SARS-CoV-2 IgG Ab 06/05/20 06/05/20 06/06/20 17:03 23:49 04:42 WBC RBC Hgb Hct MCV MCH MCHC RDW Lymph % (Auto) Lymph # (Auto) Seg Neutrophils % Seg Neuts % (Manual) Lymphocytes % (Manual) Nucleated RBC % Seg Neutrophils # Seg Neutrophils # Man Lymphocytes # (Manual) D-Dimer ABG pH POC ABG pCO2 56.1 H POC ABG pO2 52.5 L ABG pO2 ABG HCO3 ABG O2 Saturation ABG Base Excess ABG Hemoglobin 11.7 L ABG Oxyhemoglobin ABG Sodium ABG Potassium 3.3 L ABG Chloride 95.0 L ABG Glucose 156 H Oxyhemoglobin Sodium Potassium Chloride Carbon Dioxide BUN Creatinine Glucose POC Glucose 159 H 194 H Lactic Acid Calcium Magnesium Ferritin Total Bilirubin Direct Bilirubin AST ALT Alkaline Phosphatase Lactate Dehydrogenase C-Reactive Protein Total Protein Albumin Triglycerides Arterial Blood Glucose 156 H Arterial Blood Ionized Calcium Urine WBC (Auto) Coronavirus (PCR) SARS-CoV-2 IgG Ab 06/06/20 06/06/20 06/06/20 05:57 12:06 17:38 WBC RBC Hgb Hct MCV MCH MCHC RDW Lymph % (Auto) Lymph # (Auto) Seg Neutrophils % Seg Neuts % (Manual) Lymphocytes % (Manual) Nucleated RBC % Seg Neutrophils # Seg Neutrophils # Man Lymphocytes # (Manual) D-Dimer ABG pH POC ABG pCO2 POC ABG pO2 ABG pO2 ABG HCO3 ABG O2 Saturation ABG Base Excess ABG Hemoglobin ABG Oxyhemoglobin ABG Sodium ABG Potassium ABG Chloride ABG Glucose Oxyhemoglobin Sodium Potassium Chloride Carbon Dioxide BUN Creatinine Glucose POC Glucose 144 H 230 H 162 H Lactic Acid Calcium Magnesium Ferritin Total Bilirubin Direct Bilirubin AST ALT Alkaline Phosphatase Lactate Dehydrogenase C-Reactive Protein Total Protein Albumin Triglycerides Arterial Blood Glucose Arterial Blood Ionized Calcium Urine WBC (Auto) Coronavirus (PCR) SARS-CoV-2 IgG Ab 06/06/20 06/07/20 06/07/20 23:50 04:34 06:03 WBC RBC Hgb Hct MCV MCH MCHC RDW Lymph % (Auto) Lymph # (Auto) Seg Neutrophils % Seg Neuts % (Manual) Lymphocytes % (Manual) Nucleated RBC % Seg Neutrophils # Seg Neutrophils # Man Lymphocytes # (Manual) D-Dimer ABG pH 7.511 H POC ABG pCO2 53.5 H POC ABG pO2 114.5 H ABG pO2 ABG HCO3 ABG O2 Saturation ABG Base Excess ABG Hemoglobin 9.4 L ABG Oxyhemoglobin ABG Sodium 134.5 L ABG Potassium ABG Chloride 94.0 L ABG Glucose 186 H Oxyhemoglobin Sodium Potassium Chloride Carbon Dioxide BUN Creatinine Glucose POC Glucose 181 H 155 H Lactic Acid Calcium Magnesium Ferritin Total Bilirubin Direct Bilirubin AST ALT Alkaline Phosphatase Lactate Dehydrogenase C-Reactive Protein Total Protein Albumin Triglycerides Arterial Blood Glucose 186 H Arterial Blood Ionized Calcium 4.5 L Urine WBC (Auto) Coronavirus (PCR) SARS-CoV-2 IgG Ab 06/07/20 06/07/20 06/07/20 13:41 14:58 14:58 WBC RBC 2.72 L Hgb 9.3 L Hct 27.2 L MCV 100 H MCH 34 H MCHC RDW Lymph % (Auto) Lymph # (Auto) Seg Neutrophils % Seg Neuts % (Manual) Lymphocytes % (Manual) Nucleated RBC % Seg Neutrophils # Seg Neutrophils # Man Lymphocytes # (Manual) D-Dimer ABG pH POC ABG pCO2 POC ABG pO2 ABG pO2 ABG HCO3 ABG O2 Saturation ABG Base Excess ABG Hemoglobin ABG Oxyhemoglobin ABG Sodium ABG Potassium ABG Chloride ABG Glucose Oxyhemoglobin Sodium Potassium Chloride 93.5 L Carbon Dioxide 39 H BUN 22 H Creatinine 0.4 L Glucose 188 H POC Glucose 201 H Lactic Acid Calcium Magnesium Ferritin Total Bilirubin Direct Bilirubin AST 61 H ALT 273 H Alkaline Phosphatase Lactate Dehydrogenase C-Reactive Protein Total Protein 5.9 L Albumin 2.7 L Triglycerides Arterial Blood Glucose Arterial Blood Ionized Calcium Urine WBC (Auto) Coronavirus (PCR) SARS-CoV-2 IgG Ab 06/07/20 06/08/20 06/08/20 23:18 05:31 12:07 WBC RBC Hgb Hct MCV MCH MCHC RDW Lymph % (Auto) Lymph # (Auto) Seg Neutrophils % Seg Neuts % (Manual) Lymphocytes % (Manual) Nucleated RBC % Seg Neutrophils # Seg Neutrophils # Man Lymphocytes # (Manual) D-Dimer ABG pH POC ABG pCO2 POC ABG pO2 ABG pO2 ABG HCO3 ABG O2 Saturation ABG Base Excess ABG Hemoglobin ABG Oxyhemoglobin ABG Sodium ABG Potassium ABG Chloride ABG Glucose Oxyhemoglobin Sodium Potassium Chloride Carbon Dioxide BUN Creatinine Glucose POC Glucose 214 H 129 H 179 H Lactic Acid Calcium Magnesium Ferritin Total Bilirubin Direct Bilirubin AST ALT Alkaline Phosphatase Lactate Dehydrogenase C-Reactive Protein Total Protein Albumin Triglycerides Arterial Blood Glucose Arterial Blood Ionized Calcium Urine WBC (Auto) Coronavirus (PCR) SARS-CoV-2 IgG Ab 06/08/20 06/08/20 06/09/20 18:18 23:35 05:42 WBC RBC Hgb Hct MCV MCH MCHC RDW Lymph % (Auto) Lymph # (Auto) Seg Neutrophils % Seg Neuts % (Manual) Lymphocytes % (Manual) Nucleated RBC % Seg Neutrophils # Seg Neutrophils # Man Lymphocytes # (Manual) D-Dimer ABG pH POC ABG pCO2 POC ABG pO2 ABG pO2 ABG HCO3 ABG O2 Saturation ABG Base Excess ABG Hemoglobin ABG Oxyhemoglobin ABG Sodium ABG Potassium ABG Chloride ABG Glucose Oxyhemoglobin Sodium Potassium Chloride Carbon Dioxide BUN Creatinine Glucose POC Glucose 172 H 177 H 137 H Lactic Acid Calcium Magnesium Ferritin Total Bilirubin Direct Bilirubin AST ALT Alkaline Phosphatase Lactate Dehydrogenase C-Reactive Protein Total Protein Albumin Triglycerides Arterial Blood Glucose Arterial Blood Ionized Calcium Urine WBC (Auto) Coronavirus (PCR) SARS-CoV-2 IgG Ab 06/09/20 06/09/20 06/09/20 06:20 07:55 07:55 WBC 12.4 H RBC 3.26 L Hgb 11.1 L Hct 33.4 L D MCV 102 H MCH 34 H MCHC RDW Lymph % (Auto) Lymph # (Auto) Seg Neutrophils % Seg Neuts % (Manual) Lymphocytes % (Manual) Nucleated RBC % Seg Neutrophils # Seg Neutrophils # Man Lymphocytes # (Manual) D-Dimer ABG pH 7.466 H POC ABG pCO2 50.7 H POC ABG pO2 53.0 L ABG pO2 ABG HCO3 ABG O2 Saturation ABG Base Excess ABG Hemoglobin ABG Oxyhemoglobin ABG Sodium ABG Potassium 2.9 L ABG Chloride 93.0 L ABG Glucose 138 H Oxyhemoglobin Sodium Potassium 3.0 L Chloride 92.3 L Carbon Dioxide 37 H BUN 21 H Creatinine 0.6 L Glucose 120 H POC Glucose Lactic Acid Calcium Magnesium Ferritin Total Bilirubin Direct Bilirubin AST ALT Alkaline Phosphatase Lactate Dehydrogenase C-Reactive Protein Total Protein Albumin Triglycerides Arterial Blood Glucose 138 H Arterial Blood Ionized Calcium 4.5 L Urine WBC (Auto) Coronavirus (PCR) SARS-CoV-2 IgG Ab 06/09/20 06/09/20 06/10/20 11:22 18:32 04:46 WBC RBC Hgb Hct MCV MCH MCHC RDW Lymph % (Auto) Lymph # (Auto) Seg Neutrophils % Seg Neuts % (Manual) Lymphocytes % (Manual) Nucleated RBC % Seg Neutrophils # Seg Neutrophils # Man Lymphocytes # (Manual) D-Dimer ABG pH 7.501 H POC ABG pCO2 POC ABG pO2 126.5 H ABG pO2 ABG HCO3 ABG O2 Saturation ABG Base Excess ABG Hemoglobin 10.3 L ABG Oxyhemoglobin ABG Sodium ABG Potassium ABG Chloride ABG Glucose 220 H Oxyhemoglobin Sodium Potassium Chloride Carbon Dioxide BUN Creatinine Glucose POC Glucose 117 H 121 H Lactic Acid Calcium Magnesium Ferritin Total Bilirubin Direct Bilirubin AST ALT Alkaline Phosphatase Lactate Dehydrogenase C-Reactive Protein Total Protein Albumin Triglycerides Arterial Blood Glucose 220 H Arterial Blood Ionized Calcium Urine WBC (Auto) Coronavirus (PCR) SARS-CoV-2 IgG Ab 06/10/20 06/10/20 06/10/20 05:30 09:38 12:03 WBC RBC Hgb Hct MCV MCH MCHC RDW Lymph % (Auto) Lymph # (Auto) Seg Neutrophils % Seg Neuts % (Manual) Lymphocytes % (Manual) Nucleated RBC % Seg Neutrophils # Seg Neutrophils # Man Lymphocytes # (Manual) D-Dimer ABG pH POC ABG pCO2 POC ABG pO2 ABG pO2 ABG HCO3 ABG O2 Saturation ABG Base Excess ABG Hemoglobin ABG Oxyhemoglobin ABG Sodium ABG Potassium ABG Chloride ABG Glucose Oxyhemoglobin Sodium Potassium Chloride Carbon Dioxide BUN Creatinine Glucose POC Glucose 181 H 204 H Lactic Acid Calcium Magnesium Ferritin Total Bilirubin Direct Bilirubin AST ALT Alkaline Phosphatase Lactate Dehydrogenase C-Reactive Protein Total Protein Albumin Triglycerides 738 H Arterial Blood Glucose Arterial Blood Ionized Calcium Urine WBC (Auto) Coronavirus (PCR) SARS-CoV-2 IgG Ab 06/10/20 06/11/20 06/11/20 17:17 00:04 04:38 WBC RBC Hgb Hct MCV MCH MCHC RDW Lymph % (Auto) Lymph # (Auto) Seg Neutrophils % Seg Neuts % (Manual) Lymphocytes % (Manual) Nucleated RBC % Seg Neutrophils # Seg Neutrophils # Man Lymphocytes # (Manual) D-Dimer ABG pH 7.479 H POC ABG pCO2 POC ABG pO2 76.7 L ABG pO2 ABG HCO3 ABG O2 Saturation ABG Base Excess ABG Hemoglobin 9.8 L ABG Oxyhemoglobin ABG Sodium 135.8 L ABG Potassium ABG Chloride ABG Glucose 238 H Oxyhemoglobin Sodium Potassium Chloride Carbon Dioxide BUN Creatinine Glucose POC Glucose 156 H 178 H Lactic Acid Calcium Magnesium Ferritin Total Bilirubin Direct Bilirubin AST ALT Alkaline Phosphatase Lactate Dehydrogenase C-Reactive Protein Total Protein Albumin Triglycerides Arterial Blood Glucose 238 H Arterial Blood Ionized Calcium Urine WBC (Auto) Coronavirus (PCR) SARS-CoV-2 IgG Ab 06/11/20 06/11/20 06/11/20 05:21 06:52 11:50 WBC RBC Hgb Hct MCV MCH MCHC RDW Lymph % (Auto) Lymph # (Auto) Seg Neutrophils % Seg Neuts % (Manual) Lymphocytes % (Manual) Nucleated RBC % Seg Neutrophils # Seg Neutrophils # Man Lymphocytes # (Manual) D-Dimer ABG pH POC ABG pCO2 POC ABG pO2 ABG pO2 ABG HCO3 ABG O2 Saturation ABG Base Excess ABG Hemoglobin ABG Oxyhemoglobin ABG Sodium ABG Potassium ABG Chloride ABG Glucose Oxyhemoglobin Sodium Potassium Chloride Carbon Dioxide BUN Creatinine Glucose POC Glucose 215 H 187 H Lactic Acid Calcium Magnesium Ferritin Total Bilirubin Direct Bilirubin AST ALT Alkaline Phosphatase Lactate Dehydrogenase C-Reactive Protein Total Protein Albumin Triglycerides 331 H Arterial Blood Glucose Arterial Blood Ionized Calcium Urine WBC (Auto) Coronavirus (PCR) SARS-CoV-2 IgG Ab 06/11/20 06/11/20 06/12/20 17:49 23:35 04:52 WBC RBC Hgb Hct MCV MCH MCHC RDW Lymph % (Auto) Lymph # (Auto) Seg Neutrophils % Seg Neuts % (Manual) Lymphocytes % (Manual) Nucleated RBC % Seg Neutrophils # Seg Neutrophils # Man Lymphocytes # (Manual) D-Dimer ABG pH 7.486 H POC ABG pCO2 POC ABG pO2 ABG pO2 ABG HCO3 ABG O2 Saturation ABG Base Excess ABG Hemoglobin 9.4 L ABG Oxyhemoglobin ABG Sodium ABG Potassium 3.2 L ABG Chloride ABG Glucose 209 H Oxyhemoglobin Sodium Potassium Chloride Carbon Dioxide BUN Creatinine Glucose POC Glucose 211 H 200 H Lactic Acid Calcium Magnesium Ferritin Total Bilirubin Direct Bilirubin AST ALT Alkaline Phosphatase Lactate Dehydrogenase C-Reactive Protein Total Protein Albumin Triglycerides Arterial Blood Glucose 209 H Arterial Blood Ionized Calcium Urine WBC (Auto) Coronavirus (PCR) SARS-CoV-2 IgG Ab 06/12/20 06/12/20 05:13 11:47 WBC RBC Hgb Hct MCV MCH MCHC RDW Lymph % (Auto) Lymph # (Auto) Seg Neutrophils % Seg Neuts % (Manual) Lymphocytes % (Manual) Nucleated RBC % Seg Neutrophils # Seg Neutrophils # Man Lymphocytes # (Manual) D-Dimer ABG pH POC ABG pCO2 POC ABG pO2 ABG pO2 ABG HCO3 ABG O2 Saturation ABG Base Excess ABG Hemoglobin ABG Oxyhemoglobin ABG Sodium ABG Potassium ABG Chloride ABG Glucose Oxyhemoglobin Sodium Potassium Chloride Carbon Dioxide BUN Creatinine Glucose POC Glucose 174 H 214 H Lactic Acid Calcium Magnesium Ferritin Total Bilirubin Direct Bilirubin AST ALT Alkaline Phosphatase Lactate Dehydrogenase C-Reactive Protein Total Protein Albumin Triglycerides Arterial Blood Glucose Arterial Blood Ionized Calcium Urine WBC (Auto) Coronavirus (PCR) SARS-CoV-2 IgG Ab Chest x-ray: other (none today) Allied health notes reviewed: nursing
[2020-06-12] MEDS: POLYETHYLENE GLYCOL 3350 17 GM POWDER PO SCH (22:45)
--- NOTE | 2020-06-12 22:46 | Progress Note ---
Assessment and Plan Assessment and Plan Patient intubated last night because of persistent hypoxia --Elevated D-dimers; on full dose anticoagulation However ID requested to get CTA chest, patient is unstable to go for CT As he is requiring high flow oxygen. -- Acute hypoxemic respiratory failure; Patient intubated and on vent support --Elevated D-dimers; check CTA to rule out PE Lower extremity venous Doppler to rule out DVT Patient is already on full dose anticoagulation per COVID-19 protocol -- Novel coronavirus infection with Bilateral pneumonia Coronavirus protocol: IV steroid therapy, IV remdesivir, isolation precautions, contact precautions, prone positioning while in bed, pulmonary toilet. consulted ID --Severe sepsis, due to COVID 19 PNA cont to treat for COVID -- Acute kidney injury (SEN) , likely vasomotor nephropathy Resolved, IV fluids, avoid nephrotoxins -- Alcohol dependence; no episodes of withdrawal symptoms Thiamine, folic acid, multivitamin, CIWA protocol. -- Elevated liver function tests Suspected secondary to alcoholic liver disease. Supportive care, alcohol cessation, patient counseled. -- DVT prophylaxis prophylactic AC with lovenox for elevated D-dimer We will closely monitor patient and adjust management as needed Patient has severe Covid pneumonia, severe hypoxia Critically ill very poor prognosis Full CODE STATUS The high probability of a clinically significant, sudden or life threatening deterioration of the [Covid pneumonia, ID, respiratory, liver] system(s) required my full and direct attention, intervention and personal management. The aggregate critical care time was [32] minutes. This time is in addition to time spent performing reported procedures but includes the following: [x] Data Review and interpretation [x] Patient assessment and monitoring of vital signs [x] Documentation [x] Medication orders and management. Subjective Date of service: 06/12/20 Principal diagnosis: Ac hypoxemic resp failure; COVID-19; Severe Sepsis; Shaggy PNA; Alcohol Abuse Interval history: Brief history; 50 YO Male with Obesity, ETOH Dependence presents to ED for evaluation for shortness of breath, generalized weakness, fatigue, malaise, body aches, decreased exercise tolerance over the past 5 days. EMS was notified and upon arrival the patient was found to be in distress with a pulse oximetry of 76% on room air as well as fever to 103 F. In the ER chest x-ray and was found to have bilateral pneumonia. Patient admitted to medical floor and initiated on pneumonia protocol as well as COVID-19 protocol. Patient severe Covid pneumonia, with persistent severe hypoxemia requiring very high flow oxygen Today on continuous BiPAP, patient is in mild distress, critically ill with very poor prognosis. Patient was on high flow oxygen but could not be maintained above 90 hence patient intubated last night electively 05/17/2020; patient with severe COVID-19 pneumonia, in isolation room Patient is on high flow oxygen, and BiPAP 05/18/20; patient feels slightly better still hypoxic, requiring continuous high flow oxygen and BiPAP Respiratory team trying to wean 05/19/20; patient is severely hypoxemic requiring continuous BiPAP today, complains of generalized weakness Trying to wean off high flow oxygen, patient is in isolation 05/20/2020; patient remains on high flow oxygen/BiPAP/100% nonrebreather. Still is hypoxemic Has sinus tachycardia patient in mild distress Wean off high flow oxygen as tolerated, pulmonary critical following 05/21/20; patient is critically ill, on continuous BiPAP remains hypoxemic in mild distress Patient has severe Covid Pneumonia with persistent hypoxemia and poor prognosis 05/22/2020 Patient was intubated last night because of persistent hypoxemia Objective - Constitutional Vitals: Vital Signs - 12hr 06/12/20 06/12/20 06/12/20 11:00 12:00 12:11 Temperature 97.7 F Pulse Rate 77 86 123 H Pulse Rate [ 81 From Monitor] Respiratory 30 H 30 H Rate Blood Pressure 123/77 112/67 103/63 O2 Sat by Pulse 96 99 96 Oximetry 06/12/20 06/12/20 06/12/20 13:00 14:00 15:00 Temperature Pulse Rate 107 H 79 113 H Pulse Rate [ From Monitor] Respiratory 30 H 30 H 30 H Rate Blood Pressure 111/76 109/72 135/90 O2 Sat by Pulse 94 97 94 Oximetry 06/12/20 06/12/20 06/12/20 16:00 17:00 18:00 Temperature 98.1 F Pulse Rate 104 H 94 H 88 Pulse Rate [ 103 H From Monitor] Respiratory 30 H 29 H 28 H Rate Blood Pressure 100/62 99/62 110/64 O2 Sat by Pulse 98 98 100 Oximetry 06/12/20 06/12/20 06/12/20 19:00 20:00 21:00 Temperature 97.8 F Pulse Rate 83 84 82 Pulse Rate [ 84 From Monitor] Respiratory 29 H 30 H 30 H Rate Blood Pressure 94/59 101/59 109/69 O2 Sat by Pulse 100 98 94 Oximetry General appearance: Present: no acute distress, well-nourished - EENT Eyes: PERRL, EOM intact ENT: hearing intact, clear oral mucosa Ears: bilateral: normal - Neck Neck: supple, normal ROM - Respiratory Respiratory effort: normal Respiratory: bilateral: CTA - Breasts Breasts: normal - Cardiovascular Rhythm: regular Heart Sounds: Present: S1 & S2. Absent: gallop, rub Extremities: pulses intact, No edema, normal color, Full ROM - Gastrointestinal General gastrointestinal: Present: soft, non-tender, non-distended, normal bowel sounds - Genitourinary Male genitourinary: normal - Integumentary Integumentary: clear, warm, dry - Musculoskeletal Musculoskeletal: 1, strength equal bilaterally - Neurologic Neurologic: moves all extremities - Psychiatric Psychiatric: memory intact, appropriate mood/affect, intact judgment & insight - Labs CBC & Chem 7: 06/09/20 07:55 06/09/20 07:55 Labs: Abnormal lab results 06/11/20 06/12/20 06/12/20 Range/Units 23:35 04:52 05:13 ABG pH 7.486 H (7.320-7.450) ABG Hemoglobin 9.4 L (12.0-17.5) ABG Potassium 3.2 L (3.40-4.50) mmol/L ABG Glucose 209 H (65-95) mg/dL POC Glucose 200 H 174 H (70-105) mg/dL Arterial Blood Glucose 209 H (65-95) mg/dL 06/12/20 06/12/20 Range/Units 11:47 18:33 ABG pH (7.320-7.450) ABG Hemoglobin (12.0-17.5) ABG Potassium (3.40-4.50) mmol/L ABG Glucose (65-95) mg/dL POC Glucose 214 H 194 H (70-105) mg/dL Arterial Blood Glucose (65-95) mg/dL
[2020-06-13] MEDS: fentaNYL DRIP Premix 2,000 MCG/100 ML BAG IV SCH ×4 (04:59→19:16)
[2020-06-13] MEDS: PROPOFOL 500 MG/50 ML IV SCH ×5 (05:00→19:47)
[2020-06-13] MEDS: methylPREDNISolone Sod Succinate 40 MG/1 ML INJ IV SCH ×3 (06:54→17:58)
[2020-06-13] MEDS: INSULIN LISPRO 100 UNIT/ML VIAL 3 mL SUB-Q SCH ×5 (06:55→17:57)
[2020-06-13] MEDS: MIDAZOLAM 100 MG in SODIUM CHLORIDE 0.9% 80 ML IV SCH (08:11)
[2020-06-13] MEDS: DOCUSATE SODIUM 100 MG/10 ML ORAL LIQD PO SCH ×2 (09:39→22:36)
[2020-06-13] MEDS: METOCLOPRAMIDE 10 MG/2 ML INJ IV SCH ×4 (09:39→22:34)
[2020-06-13] MEDS: QUEtiapine 100 MG TAB PO SCH ×2 (09:40→22:35)
[2020-06-13] MEDS: FAMOTIDINE 20 MG TAB PO SCH ×2 (09:40→22:30)
[2020-06-13] MEDS: FOLIC ACID 1 MG TAB PO SCH (09:40)
[2020-06-13] MEDS: SENNOSIDES 8.6 MG TAB PO SCH ×2 (09:40→22:35)
[2020-06-13] MEDS: ENOXAPARIN 120 MG/0.8 ML INJ SUB-Q SCH ×2 (09:41→22:35)
--- NOTE | 2020-06-13 12:43 | Progress Note ---
Assessment and Plan Acute hypoxemic respiratory failure due to COVID-19 Severe Sepsis Bilateral pneumonia Acute kidney injury (SEN) with acute tubular necrosis (ATN) Alcohol dependence Elevated liver function tests - get CBC, INR & address - reduced peep to 10 - tentatively drop to 8 in am then begin PSV trials as tolerated - continue care as below otherwise; - continue to wean Levophed for target MAP > 65 mmHg (@ 8 sergio's/min) - continue to wean supplemental oxygen for target O2 sat's > 92% acutely - ETT day # 23; he will need a tracheostomy once numbers better - continue Daily SAT and SBT assessment as tolerated - VAP bundle addressed - continue lung protective strategies - continue bronchodilators with pulmonary hygiene per RT - wean per pulmonary driven protocols otherwise - accuchecks with glycemic control per SSI (While critically ill target blood glucose of 140-180 mg/dL; avoid hypoglycemia) - sedation prn for target RASS -1 to -2 - continue enteral nutritional support at goal rate as tolerated - continue airborne and contact isolation - follow repeat COVID-19 testing - continue Zinc & Vit C supplementaion - continue systemic steroids for Asthma / severe COVID infection - Prone positioning as tolerated - continue empiric full dose anticoagulation re: elevated d-dimers / hypercoagulable state - NOT a candidate for COVID convalescent plasma - continue systemic steroids X >/= 10 days - complete remdesivir dosing (total 5 days) - Monitor liver function test on Remdesivir - trend inflammatory markers - ferritin, Ddimer, CRP, LDH; to aid clinical decision making - empiric AB's coverage per ID rec's otherwise - accuchecks with glycemic control per SSI (While critically ill target blood glucose of 140-180 mg/dL; avoid hypoglycemia) - avoid nephrotoxins, renally dose all medications - continue to avoid benzodiazepine's, reduce the possibility of delirium - prn analgesia per CPOT score - Maintenance of sleep-wake cycle, avoid delirium - continue to avoid benzodiazepine's, reduce the possibility of delirium - aspiration precautions - G.I. & VTE prophylaxis - PT/OT/ROM exercises - continue mobility protocols for pressure ulcer prophylaxis - Monitor hemodynamics closely - continue other care per attending / other consultants - discharge planning ongoing concurrently .... Re-evaluate in am & prn CONDITION: CRITICAL PROGNOSIS: GUARDED CODE STATUS: FULL CODE The high probability of a clinically significant, sudden or life-threatening deterioration of the [respiratory, cardiovascular, hematologic & neurologic] system(s) required my full and direct attention, intervention and personal management. The aggregate critical care time was [32] minutes without overlap. Time includes spent on; [x] Data Review and interpretation [x] Patient assessment and monitoring of vital signs [x] Documentation [x] Medication orders and management Subjective Date of service: 06/13/20 Principal diagnosis: Ac hypoxemic resp failure; COVID-19; Severe Sepsis; Shaggy PNA; Alcohol Abuse Interval history: Patient is seen today for: Acute hypoxemic respiratory failure due to COVID-19; Severe Sepsis; Bilateral pneumonia; Alcohol dependence; Elevated liver function tests Seen and examined at bedside; 24hour events reviewed; nursing and respiratory care staff consulted; no adverse overnight events reported to me; resting in bed; remains on MVS; FiO2 remains at 40% on peep of 12 (transiently increased to 45% due to desaturation event earlier) ; bleeding reported from PICC line site; no new issues otherwise Objective Vital Signs - 12hr 06/13/20 06/13/20 06/13/20 01:00 02:00 03:00 Temperature Pulse Rate 72 71 69 Pulse Rate [ From Monitor] Respiratory 30 H 30 H 30 H Rate Blood Pressure 108/66 102/65 107/66 O2 Sat by Pulse 96 96 Oximetry 06/13/20 06/13/20 06/13/20 03:56 04:00 05:00 Temperature 98.5 F Pulse Rate 120 H 106 H Pulse Rate [ 121 H From Monitor] Respiratory 15 30 H Rate Blood Pressure 128/83 109/65 O2 Sat by Pulse 89 98 Oximetry 06/13/20 06/13/20 06/13/20 05:31 06:00 07:00 Temperature Pulse Rate 101 H 101 H 117 H Pulse Rate [ From Monitor] Respiratory 30 H 11 L Rate Blood Pressure 107/72 107/59 109/70 O2 Sat by Pulse 94 94 93 Oximetry 06/13/20 06/13/20 06/13/20 08:00 09:00 10:00 Temperature 99.0 F Pulse Rate 107 H 117 H 99 H Pulse Rate [ 132 H From Monitor] Respiratory 17 30 H 30 H Rate Blood Pressure 89/57 95/61 85/56 O2 Sat by Pulse 95 84 91 Oximetry 06/13/20 06/13/20 11:00 11:29 Temperature Pulse Rate 90 89 Pulse Rate [ From Monitor] Respiratory 30 H Rate Blood Pressure 93/63 93/63 O2 Sat by Pulse 97 Oximetry Constitutional: no acute distress, asleep, other (middle aged obese male with normal respiratory effort at rest on MVS) Eyes: non-icteric ENT: oropharynx moist, other (ETT 24 cm CHILO) Neck: supple, no JVD Effort: normal Ascultation: Bilateral: diminished breath sounds, rhonchi Percussion: Bilateral: not dull Cardiovascular: regular rate and rhythm Gastrointestinal: normoactive bowel sounds, soft, non-tender, non-distended (protuberant) Integumentary: normal Extremities: no cyanosis, no edema, pulses normal, no ischemia or petechiae Neurologic: non-focal exam, pupils equal and round, CN II-XII normal, motor strength normal and, other (sedated) Psychiatric: other (sedated) CBC and BMP: 06/14/20 07:15 06/14/20 07:15 ABG, PT/INR, D-dimer: ABG ABG pH 7.486 (7.320-7.450) H 06/12/20 04:52 POC ABG pCO2 47.3 mmHg (32.0-48.0) 06/12/20 04:52 ABG pCO2 69.6 mm Hg 06/05/20 12:35 POC ABG pO2 85.6 mmHg (83-108) 06/12/20 04:52 ABG pO2 127.9 mm Hg (80.0-90.0) H 06/05/20 12:35 POC ABG HCO3 34.9 06/12/20 04:52 ABG O2 Saturation 98.3 % (95.0-99.0) 06/05/20 12:35 PT/INR, D-dimer D-Dimer 1887.82 ng/mlDDU (0-234) H 05/20/20 08:16 Abnormal lab findings: Abnormal Labs 05/09/20 05/09/20 05/09/20 12:59 12:59 12:59 WBC 11.8 H RBC Hgb Hct MCV 96 H MCH 34 H MCHC 35 H RDW Lymph % (Auto) 6.9 L Lymph # (Auto) 0.8 L Seg Neutrophils % 87.5 H Seg Neuts % (Manual) Lymphocytes % (Manual) Nucleated RBC % Seg Neutrophils # 10.3 H Seg Neutrophils # Man Lymphocytes # (Manual) D-Dimer ABG pH POC ABG pCO2 POC ABG pO2 ABG pO2 ABG HCO3 ABG O2 Saturation ABG Base Excess ABG Hemoglobin ABG Oxyhemoglobin ABG Sodium ABG Potassium ABG Chloride ABG Glucose Oxyhemoglobin Sodium 130 L Potassium 3.5 L Chloride 86.4 L Carbon Dioxide BUN 33 H Creatinine 2.3 H Glucose 156 H POC Glucose Lactic Acid Calcium Magnesium Ferritin Total Bilirubin 3.40 H Direct Bilirubin 1.7 H AST 385 H ALT 134 H Alkaline Phosphatase Lactate Dehydrogenase C-Reactive Protein Total Protein Albumin 3.0 L Triglycerides Arterial Blood Glucose Arterial Blood Ionized Calcium Urine WBC (Auto) Coronavirus (PCR) SARS-CoV-2 IgG Ab 05/09/20 05/09/20 05/09/20 12:59 12:59 12:59 WBC RBC Hgb Hct MCV MCH MCHC RDW Lymph % (Auto) Lymph # (Auto) Seg Neutrophils % Seg Neuts % (Manual) Lymphocytes % (Manual) Nucleated RBC % Seg Neutrophils # Seg Neutrophils # Man Lymphocytes # (Manual) D-Dimer 3242.51 H ABG pH POC ABG pCO2 POC ABG pO2 ABG pO2 ABG HCO3 ABG O2 Saturation ABG Base Excess ABG Hemoglobin ABG Oxyhemoglobin ABG Sodium ABG Potassium ABG Chloride ABG Glucose Oxyhemoglobin Sodium Potassium Chloride Carbon Dioxide BUN Creatinine Glucose 158 H POC Glucose Lactic Acid 3.50 H* Calcium Magnesium Ferritin Total Bilirubin Direct Bilirubin AST ALT Alkaline Phosphatase Lactate Dehydrogenase 2166 H C-Reactive Protein 39.00 H Total Protein Albumin Triglycerides Arterial Blood Glucose Arterial Blood Ionized Calcium Urine WBC (Auto) Coronavirus (PCR) SARS-CoV-2 IgG Ab 05/09/20 05/09/20 05/09/20 12:59 14:20 14:20 WBC RBC Hgb Hct MCV MCH MCHC RDW Lymph % (Auto) Lymph # (Auto) Seg Neutrophils % Seg Neuts % (Manual) Lymphocytes % (Manual) Nucleated RBC % Seg Neutrophils # Seg Neutrophils # Man Lymphocytes # (Manual) D-Dimer 2861.78 H ABG pH POC ABG pCO2 POC ABG pO2 ABG pO2 ABG HCO3 ABG O2 Saturation ABG Base Excess ABG Hemoglobin ABG Oxyhemoglobin ABG Sodium ABG Potassium ABG Chloride ABG Glucose Oxyhemoglobin Sodium Potassium Chloride Carbon Dioxide BUN Creatinine Glucose POC Glucose Lactic Acid 2.20 H* Calcium Magnesium Ferritin 28500.0 H Total Bilirubin Direct Bilirubin AST ALT Alkaline Phosphatase Lactate Dehydrogenase C-Reactive Protein Total Protein Albumin Triglycerides Arterial Blood Glucose Arterial Blood Ionized Calcium Urine WBC (Auto) Coronavirus (PCR) SARS-CoV-2 IgG Ab 05/09/20 05/09/20 05/09/20 14:20 14:20 15:56 WBC RBC Hgb Hct MCV MCH MCHC RDW Lymph % (Auto) Lymph # (Auto) Seg Neutrophils % Seg Neuts % (Manual) Lymphocytes % (Manual) Nucleated RBC % Seg Neutrophils # Seg Neutrophils # Man Lymphocytes # (Manual) D-Dimer ABG pH POC ABG pCO2 POC ABG pO2 57.3 L ABG pO2 ABG HCO3 ABG O2 Saturation ABG Base Excess ABG Hemoglobin ABG Oxyhemoglobin 86.3 L ABG Sodium 129.9 L ABG Potassium ABG Chloride ABG Glucose 146 H Oxyhemoglobin Sodium Potassium Chloride Carbon Dioxide BUN Creatinine Glucose 143 H POC Glucose Lactic Acid Calcium Magnesium Ferritin 66480.0 H Total Bilirubin Direct Bilirubin AST ALT Alkaline Phosphatase Lactate Dehydrogenase 1953 H C-Reactive Protein 33.50 H Total Protein Albumin Triglycerides Arterial Blood Glucose 146 H Arterial Blood Ionized Calcium 3.9 L Urine WBC (Auto) Coronavirus (PCR) SARS-CoV-2 IgG Ab 05/10/20 05/10/20 05/10/20 10:32 10:32 18:50 WBC 15.4 H RBC Hgb Hct MCV 97 H MCH 33 H MCHC RDW 13.1 L Lymph % (Auto) Lymph # (Auto) Seg Neutrophils % Seg Neuts % (Manual) 89.0 H Lymphocytes % (Manual) 8.0 L Nucleated RBC % Seg Neutrophils # Seg Neutrophils # Man 13.7 H Lymphocytes # (Manual) D-Dimer ABG pH POC ABG pCO2 POC ABG pO2 ABG pO2 ABG HCO3 ABG O2 Saturation ABG Base Excess ABG Hemoglobin ABG Oxyhemoglobin ABG Sodium ABG Potassium ABG Chloride ABG Glucose Oxyhemoglobin Sodium 136 L Potassium Chloride 97.4 L Carbon Dioxide BUN 37 H Creatinine 1.7 H Glucose 209 H POC Glucose Lactic Acid Calcium Magnesium Ferritin > 2000.0 H Total Bilirubin Direct Bilirubin AST ALT Alkaline Phosphatase Lactate Dehydrogenase C-Reactive Protein Total Protein Albumin Triglycerides Arterial Blood Glucose Arterial Blood Ionized Calcium Urine WBC (Auto) Coronavirus (PCR) SARS-CoV-2 IgG Ab 05/10/20 05/10/20 05/10/20 18:50 19:00 Unknown WBC RBC Hgb Hct MCV MCH MCHC RDW Lymph % (Auto) Lymph # (Auto) Seg Neutrophils % Seg Neuts % (Manual) Lymphocytes % (Manual) Nucleated RBC % Seg Neutrophils # Seg Neutrophils # Man Lymphocytes # (Manual) D-Dimer > 45107 H ABG pH POC ABG pCO2 POC ABG pO2 ABG pO2 ABG HCO3 ABG O2 Saturation ABG Base Excess ABG Hemoglobin ABG Oxyhemoglobin ABG Sodium ABG Potassium ABG Chloride ABG Glucose Oxyhemoglobin Sodium Potassium Chloride Carbon Dioxide BUN Creatinine Glucose POC Glucose Lactic Acid Calcium Magnesium Ferritin Total Bilirubin Direct Bilirubin AST ALT Alkaline Phosphatase Lactate Dehydrogenase 1879 H C-Reactive Protein 24.80 H Total Protein Albumin Triglycerides Arterial Blood Glucose Arterial Blood Ionized Calcium Urine WBC (Auto) 11.0 H Coronavirus (PCR) SARS-CoV-2 IgG Ab 05/10/20 05/11/20 05/11/20 Unknown 07:30 07:30 WBC RBC Hgb Hct MCV MCH MCHC RDW Lymph % (Auto) Lymph # (Auto) Seg Neutrophils % Seg Neuts % (Manual) Lymphocytes % (Manual) Nucleated RBC % Seg Neutrophils # Seg Neutrophils # Man Lymphocytes # (Manual) D-Dimer > 2000 H ABG pH POC ABG pCO2 POC ABG pO2 ABG pO2 ABG HCO3 ABG O2 Saturation ABG Base Excess ABG Hemoglobin ABG Oxyhemoglobin ABG Sodium ABG Potassium ABG Chloride ABG Glucose Oxyhemoglobin Sodium Potassium Chloride 96.3 L Carbon Dioxide BUN 36 H Creatinine Glucose 161 H POC Glucose Lactic Acid Calcium 8.3 L Magnesium Ferritin Total Bilirubin 1.50 H Direct Bilirubin 0.6 H AST 178 H ALT 111 H Alkaline Phosphatase Lactate Dehydrogenase C-Reactive Protein Total Protein Albumin 3.0 L Triglycerides Arterial Blood Glucose Arterial Blood Ionized Calcium Urine WBC (Auto) Coronavirus (PCR) Positive A SARS-CoV-2 IgG Ab 05/11/20 05/11/20 05/11/20 07:30 07:30 07:30 WBC RBC Hgb Hct MCV MCH MCHC RDW Lymph % (Auto) Lymph # (Auto) Seg Neutrophils % Seg Neuts % (Manual) Lymphocytes % (Manual) Nucleated RBC % Seg Neutrophils # Seg Neutrophils # Man Lymphocytes # (Manual) D-Dimer ABG pH POC ABG pCO2 POC ABG pO2 ABG pO2 ABG HCO3 ABG O2 Saturation ABG Base Excess ABG Hemoglobin ABG Oxyhemoglobin ABG Sodium ABG Potassium ABG Chloride ABG Glucose Oxyhemoglobin Sodium Potassium Chloride Carbon Dioxide BUN Creatinine Glucose POC Glucose Lactic Acid Calcium Magnesium Ferritin 17934.0 H Total Bilirubin Direct Bilirubin AST ALT Alkaline Phosphatase Lactate Dehydrogenase 1523 H C-Reactive Protein 12.90 H Total Protein Albumin Triglycerides Arterial Blood Glucose Arterial Blood Ionized Calcium Urine WBC (Auto) Coronavirus (PCR) SARS-CoV-2 IgG Ab Reactive A 05/13/20 05/13/20 05/15/20 05:20 05:20 08:15 WBC RBC Hgb Hct MCV MCH MCHC RDW Lymph % (Auto) Lymph # (Auto) Seg Neutrophils % Seg Neuts % (Manual) Lymphocytes % (Manual) Nucleated RBC % Seg Neutrophils # Seg Neutrophils # Man Lymphocytes # (Manual) D-Dimer > 43986 H 5318.28 H ABG pH POC ABG pCO2 POC ABG pO2 ABG pO2 ABG HCO3 ABG O2 Saturation ABG Base Excess ABG Hemoglobin ABG Oxyhemoglobin ABG Sodium ABG Potassium ABG Chloride ABG Glucose Oxyhemoglobin Sodium Potassium Chloride Carbon Dioxide 32 H BUN 30 H Creatinine Glucose 156 H POC Glucose Lactic Acid Calcium Magnesium 2.60 H Ferritin Total Bilirubin 1.40 H Direct Bilirubin AST 121 H ALT 119 H Alkaline Phosphatase Lactate Dehydrogenase 957 H C-Reactive Protein 4.00 H Total Protein Albumin 3.0 L Triglycerides Arterial Blood Glucose Arterial Blood Ionized Calcium Urine WBC (Auto) Coronavirus (PCR) SARS-CoV-2 IgG Ab 05/15/20 05/15/20 05/15/20 08:15 08:15 08:15 WBC 12.4 H RBC Hgb Hct MCV 98 H MCH 33 H MCHC RDW Lymph % (Auto) 9.7 L Lymph # (Auto) Seg Neutrophils % 86.8 H Seg Neuts % (Manual) Lymphocytes % (Manual) Nucleated RBC % Seg Neutrophils # 10.8 H Seg Neutrophils # Man Lymphocytes # (Manual) D-Dimer ABG pH POC ABG pCO2 POC ABG pO2 ABG pO2 ABG HCO3 ABG O2 Saturation ABG Base Excess ABG Hemoglobin ABG Oxyhemoglobin ABG Sodium ABG Potassium ABG Chloride ABG Glucose Oxyhemoglobin Sodium Potassium Chloride 94.8 L Carbon Dioxide 32 H BUN 22 H Creatinine Glucose 115 H POC Glucose Lactic Acid Calcium 8.3 L Magnesium Ferritin 2494.0 H Total Bilirubin Direct Bilirubin AST 73 H ALT 121 H Alkaline Phosphatase Lactate Dehydrogenase 835 H C-Reactive Protein 3.40 H Total Protein 6.1 L Albumin 3.0 L Triglycerides Arterial Blood Glucose Arterial Blood Ionized Calcium Urine WBC (Auto) Coronavirus (PCR) SARS-CoV-2 IgG Ab 05/17/20 05/17/20 05/17/20 05:50 05:50 05:50 WBC RBC Hgb Hct MCV MCH MCHC RDW Lymph % (Auto) Lymph # (Auto) Seg Neutrophils % Seg Neuts % (Manual) Lymphocytes % (Manual) Nucleated RBC % Seg Neutrophils # Seg Neutrophils # Man Lymphocytes # (Manual) D-Dimer 2911.42 H ABG pH POC ABG pCO2 POC ABG pO2 ABG pO2 ABG HCO3 ABG O2 Saturation ABG Base Excess ABG Hemoglobin ABG Oxyhemoglobin ABG Sodium ABG Potassium ABG Chloride ABG Glucose Oxyhemoglobin Sodium 136 L Potassium Chloride 96.0 L Carbon Dioxide 34 H BUN 22 H Creatinine Glucose 140 H POC Glucose Lactic Acid Calcium Magnesium Ferritin 2082.0 H Total Bilirubin Direct Bilirubin AST ALT 75 H Alkaline Phosphatase Lactate Dehydrogenase 601 H C-Reactive Protein 2.70 H Total Protein Albumin 2.9 L Triglycerides Arterial Blood Glucose Arterial Blood Ionized Calcium Urine WBC (Auto) Coronavirus (PCR) SARS-CoV-2 IgG Ab 05/17/20 05/18/20 05/20/20 05:50 12:22 08:16 WBC RBC Hgb Hct MCV 98 H MCH 33 H MCHC RDW Lymph % (Auto) 8.0 L Lymph # (Auto) 0.8 L Seg Neutrophils % 89.3 H Seg Neuts % (Manual) Lymphocytes % (Manual) Nucleated RBC % Seg Neutrophils # 8.8 H Seg Neutrophils # Man Lymphocytes # (Manual) D-Dimer 1887.82 H ABG pH POC ABG pCO2 POC ABG pO2 ABG pO2 ABG HCO3 ABG O2 Saturation ABG Base Excess ABG Hemoglobin ABG Oxyhemoglobin ABG Sodium ABG Potassium ABG Chloride ABG Glucose Oxyhemoglobin Sodium Potassium Chloride Carbon Dioxide BUN Creatinine Glucose POC Glucose 178 H Lactic Acid Calcium Magnesium Ferritin Total Bilirubin Direct Bilirubin AST ALT Alkaline Phosphatase Lactate Dehydrogenase C-Reactive Protein Total Protein Albumin Triglycerides Arterial Blood Glucose Arterial Blood Ionized Calcium Urine WBC (Auto) Coronavirus (PCR) SARS-CoV-2 IgG Ab 05/20/20 05/20/20 05/21/20 08:16 08:16 21:10 WBC RBC Hgb Hct MCV MCH MCHC RDW Lymph % (Auto) Lymph # (Auto) Seg Neutrophils % Seg Neuts % (Manual) Lymphocytes % (Manual) Nucleated RBC % Seg Neutrophils # Seg Neutrophils # Man Lymphocytes # (Manual) D-Dimer ABG pH 7.483 H POC ABG pCO2 POC ABG pO2 ABG pO2 50.0 L ABG HCO3 27.0 H ABG O2 Saturation 86.2 L ABG Base Excess 3.7 H ABG Hemoglobin ABG Oxyhemoglobin ABG Sodium ABG Potassium ABG Chloride ABG Glucose Oxyhemoglobin 84.2 L Sodium Potassium Chloride Carbon Dioxide BUN Creatinine Glucose POC Glucose Lactic Acid Calcium Magnesium Ferritin 1960.0 H Total Bilirubin Direct Bilirubin AST ALT Alkaline Phosphatase Lactate Dehydrogenase 705 H C-Reactive Protein 3.10 H Total Protein Albumin Triglycerides Arterial Blood Glucose Arterial Blood Ionized Calcium Urine WBC (Auto) Coronavirus (PCR) SARS-CoV-2 IgG Ab 05/22/20 05/22/20 05/22/20 04:01 07:53 07:53 WBC 19.2 H RBC Hgb Hct MCV 98 H MCH 34 H MCHC RDW Lymph % (Auto) Lymph # (Auto) Seg Neutrophils % Seg Neuts % (Manual) 96.0 H Lymphocytes % (Manual) 1.0 L Nucleated RBC % Seg Neutrophils # Seg Neutrophils # Man 18.4 H Lymphocytes # (Manual) 0.2 L D-Dimer ABG pH POC ABG pCO2 53.8 H POC ABG pO2 125.5 H ABG pO2 ABG HCO3 ABG O2 Saturation ABG Base Excess ABG Hemoglobin ABG Oxyhemoglobin ABG Sodium 131.8 L ABG Potassium 4.8 H ABG Chloride 94.0 L ABG Glucose 163 H Oxyhemoglobin Sodium 131 L Potassium Chloride 93.4 L Carbon Dioxide BUN 40 H Creatinine Glucose 176 H POC Glucose Lactic Acid Calcium Magnesium 2.70 H Ferritin Total Bilirubin 1.80 H Direct Bilirubin AST 45 H ALT 116 H Alkaline Phosphatase 181 H Lactate Dehydrogenase C-Reactive Protein Total Protein Albumin 2.6 L Triglycerides Arterial Blood Glucose 163 H Arterial Blood Ionized Calcium 4.5 L Urine WBC (Auto) Coronavirus (PCR) SARS-CoV-2 IgG Ab 05/23/20 05/24/20 05/24/20 04:17 03:07 04:08 WBC RBC Hgb Hct MCV MCH MCHC RDW Lymph % (Auto) Lymph # (Auto) Seg Neutrophils % Seg Neuts % (Manual) Lymphocytes % (Manual) Nucleated RBC % Seg Neutrophils # Seg Neutrophils # Man Lymphocytes # (Manual) D-Dimer ABG pH 7.328 L POC ABG pCO2 POC ABG pO2 ABG pO2 72.8 L 73.4 L ABG HCO3 31.0 H 34.0 H ABG O2 Saturation 93.5 L ABG Base Excess 3.5 H 7.7 H ABG Hemoglobin 13.3 L 12.1 L ABG Oxyhemoglobin ABG Sodium ABG Potassium ABG Chloride ABG Glucose Oxyhemoglobin 91.5 L 94.3 L Sodium Potassium Chloride Carbon Dioxide BUN Creatinine Glucose POC Glucose 155 H Lactic Acid Calcium Magnesium Ferritin Total Bilirubin Direct Bilirubin AST ALT Alkaline Phosphatase Lactate Dehydrogenase C-Reactive Protein Total Protein Albumin Triglycerides Arterial Blood Glucose Arterial Blood Ionized Calcium Urine WBC (Auto) Coronavirus (PCR) SARS-CoV-2 IgG Ab 05/24/20 05/24/20 05/24/20 09:33 12:21 17:52 WBC RBC Hgb Hct MCV MCH MCHC RDW Lymph % (Auto) Lymph # (Auto) Seg Neutrophils % Seg Neuts % (Manual) Lymphocytes % (Manual) Nucleated RBC % Seg Neutrophils # Seg Neutrophils # Man Lymphocytes # (Manual) D-Dimer ABG pH POC ABG pCO2 POC ABG pO2 ABG pO2 ABG HCO3 ABG O2 Saturation ABG Base Excess ABG Hemoglobin ABG Oxyhemoglobin ABG Sodium ABG Potassium ABG Chloride ABG Glucose Oxyhemoglobin Sodium Potassium Chloride Carbon Dioxide 34 H D BUN 28 H Creatinine 0.7 L Glucose 168 H POC Glucose 173 H 164 H Lactic Acid Calcium Magnesium Ferritin Total Bilirubin Direct Bilirubin AST ALT Alkaline Phosphatase Lactate Dehydrogenase C-Reactive Protein Total Protein Albumin Triglycerides Arterial Blood Glucose Arterial Blood Ionized Calcium Urine WBC (Auto) Coronavirus (PCR) SARS-CoV-2 IgG Ab 05/24/20 05/25/20 05/25/20 23:47 04:29 05:46 WBC RBC Hgb Hct MCV MCH MCHC RDW Lymph % (Auto) Lymph # (Auto) Seg Neutrophils % Seg Neuts % (Manual) Lymphocytes % (Manual) Nucleated RBC % Seg Neutrophils # Seg Neutrophils # Man Lymphocytes # (Manual) D-Dimer ABG pH POC ABG pCO2 68.6 H POC ABG pO2 ABG pO2 ABG HCO3 ABG O2 Saturation ABG Base Excess ABG Hemoglobin ABG Oxyhemoglobin ABG Sodium ABG Potassium 4.7 H ABG Chloride ABG Glucose 226 H Oxyhemoglobin Sodium Potassium Chloride Carbon Dioxide BUN Creatinine Glucose POC Glucose 171 H 201 H Lactic Acid Calcium Magnesium Ferritin Total Bilirubin Direct Bilirubin AST ALT Alkaline Phosphatase Lactate Dehydrogenase C-Reactive Protein Total Protein Albumin Triglycerides Arterial Blood Glucose 226 H Arterial Blood Ionized Calcium Urine WBC (Auto) Coronavirus (PCR) SARS-CoV-2 IgG Ab 05/25/20 05/25/20 05/25/20 08:37 08:37 12:38 WBC 12.0 H RBC 3.64 L Hgb Hct MCV 99 H MCH 33 H MCHC RDW Lymph % (Auto) Lymph # (Auto) Seg Neutrophils % Seg Neuts % (Manual) Lymphocytes % (Manual) Nucleated RBC % Seg Neutrophils # Seg Neutrophils # Man Lymphocytes # (Manual) D-Dimer ABG pH POC ABG pCO2 POC ABG pO2 ABG pO2 ABG HCO3 ABG O2 Saturation ABG Base Excess ABG Hemoglobin ABG Oxyhemoglobin ABG Sodium ABG Potassium ABG Chloride ABG Glucose Oxyhemoglobin Sodium Potassium Chloride 97.3 L Carbon Dioxide 35 H BUN 25 H Creatinine 0.7 L Glucose 191 H POC Glucose 182 H Lactic Acid Calcium Magnesium Ferritin Total Bilirubin Direct Bilirubin AST ALT Alkaline Phosphatase Lactate Dehydrogenase C-Reactive Protein Total Protein Albumin Triglycerides Arterial Blood Glucose Arterial Blood Ionized Calcium Urine WBC (Auto) Coronavirus (PCR) SARS-CoV-2 IgG Ab 05/25/20 05/26/20 05/26/20 18:16 00:06 04:50 WBC RBC Hgb Hct MCV MCH MCHC RDW Lymph % (Auto) Lymph # (Auto) Seg Neutrophils % Seg Neuts % (Manual) Lymphocytes % (Manual) Nucleated RBC % Seg Neutrophils # Seg Neutrophils # Man Lymphocytes # (Manual) D-Dimer ABG pH POC ABG pCO2 POC ABG pO2 ABG pO2 221.5 H ABG HCO3 40.4 H ABG O2 Saturation 99.3 H ABG Base Excess 12.8 H ABG Hemoglobin 10.4 L ABG Oxyhemoglobin ABG Sodium ABG Potassium ABG Chloride ABG Glucose Oxyhemoglobin Sodium Potassium Chloride Carbon Dioxide BUN Creatinine Glucose POC Glucose 176 H 152 H Lactic Acid Calcium Magnesium Ferritin Total Bilirubin Direct Bilirubin AST ALT Alkaline Phosphatase Lactate Dehydrogenase C-Reactive Protein Total Protein Albumin Triglycerides Arterial Blood Glucose Arterial Blood Ionized Calcium Urine WBC (Auto) Coronavirus (PCR) SARS-CoV-2 IgG Ab 05/26/20 05/26/20 05/26/20 06:11 07:51 07:51 WBC 13.4 H RBC 3.64 L Hgb Hct MCV 98 H MCH 33 H MCHC RDW Lymph % (Auto) Lymph # (Auto) Seg Neutrophils % Seg Neuts % (Manual) Lymphocytes % (Manual) Nucleated RBC % Seg Neutrophils # Seg Neutrophils # Man Lymphocytes # (Manual) D-Dimer ABG pH POC ABG pCO2 POC ABG pO2 ABG pO2 ABG HCO3 ABG O2 Saturation ABG Base Excess ABG Hemoglobin ABG Oxyhemoglobin ABG Sodium ABG Potassium ABG Chloride ABG Glucose Oxyhemoglobin Sodium Potassium Chloride 96.6 L Carbon Dioxide 39 H BUN 29 H Creatinine 0.7 L Glucose 174 H POC Glucose 165 H Lactic Acid Calcium Magnesium Ferritin Total Bilirubin Direct Bilirubin AST ALT Alkaline Phosphatase Lactate Dehydrogenase C-Reactive Protein Total Protein Albumin Triglycerides Arterial Blood Glucose Arterial Blood Ionized Calcium Urine WBC (Auto) Coronavirus (PCR) SARS-CoV-2 IgG Ab 05/26/20 05/27/20 05/27/20 23:23 03:43 05:29 WBC RBC Hgb Hct MCV MCH MCHC RDW Lymph % (Auto) Lymph # (Auto) Seg Neutrophils % Seg Neuts % (Manual) Lymphocytes % (Manual) Nucleated RBC % Seg Neutrophils # Seg Neutrophils # Man Lymphocytes # (Manual) D-Dimer ABG pH 7.480 H POC ABG pCO2 52.4 H POC ABG pO2 61.4 L ABG pO2 ABG HCO3 ABG O2 Saturation ABG Base Excess ABG Hemoglobin ABG Oxyhemoglobin ABG Sodium 134.9 L ABG Potassium ABG Chloride 95.0 L ABG Glucose 221 H Oxyhemoglobin Sodium Potassium Chloride Carbon Dioxide BUN Creatinine Glucose POC Glucose 169 H 227 H Lactic Acid Calcium Magnesium Ferritin Total Bilirubin Direct Bilirubin AST ALT Alkaline Phosphatase Lactate Dehydrogenase C-Reactive Protein Total Protein Albumin Triglycerides Arterial Blood Glucose 221 H Arterial Blood Ionized Calcium 4.5 L Urine WBC (Auto) Coronavirus (PCR) SARS-CoV-2 IgG Ab 05/27/20 05/27/20 05/27/20 07:19 12:18 13:50 WBC RBC Hgb Hct MCV MCH MCHC RDW Lymph % (Auto) Lymph # (Auto) Seg Neutrophils % Seg Neuts % (Manual) Lymphocytes % (Manual) Nucleated RBC % Seg Neutrophils # Seg Neutrophils # Man Lymphocytes # (Manual) D-Dimer ABG pH POC ABG pCO2 POC ABG pO2 ABG pO2 ABG HCO3 ABG O2 Saturation ABG Base Excess ABG Hemoglobin ABG Oxyhemoglobin ABG Sodium ABG Potassium ABG Chloride ABG Glucose Oxyhemoglobin Sodium Potassium Chloride Carbon Dioxide BUN Creatinine Glucose POC Glucose 114 H 148 H Lactic Acid Calcium Magnesium Ferritin Total Bilirubin Direct Bilirubin AST ALT Alkaline Phosphatase Lactate Dehydrogenase C-Reactive Protein Total Protein Albumin Triglycerides 247 H Arterial Blood Glucose Arterial Blood Ionized Calcium Urine WBC (Auto) Coronavirus (PCR) SARS-CoV-2 IgG Ab 05/28/20 05/28/20 05/28/20 00:13 04:16 05:22 WBC RBC Hgb Hct MCV MCH MCHC RDW Lymph % (Auto) Lymph # (Auto) Seg Neutrophils % Seg Neuts % (Manual) Lymphocytes % (Manual) Nucleated RBC % Seg Neutrophils # Seg Neutrophils # Man Lymphocytes # (Manual) D-Dimer ABG pH POC ABG pCO2 64.4 H POC ABG pO2 60.5 L ABG pO2 ABG HCO3 ABG O2 Saturation ABG Base Excess ABG Hemoglobin ABG Oxyhemoglobin ABG Sodium ABG Potassium ABG Chloride 95.0 L ABG Glucose 209 H Oxyhemoglobin Sodium Potassium Chloride Carbon Dioxide BUN Creatinine Glucose POC Glucose 155 H 186 H Lactic Acid Calcium Magnesium Ferritin Total Bilirubin Direct Bilirubin AST ALT Alkaline Phosphatase Lactate Dehydrogenase C-Reactive Protein Total Protein Albumin Triglycerides Arterial Blood Glucose 209 H Arterial Blood Ionized Calcium Urine WBC (Auto) Coronavirus (PCR) SARS-CoV-2 IgG Ab 05/28/20 05/28/20 05/29/20 12:45 17:39 00:37 WBC RBC Hgb Hct MCV MCH MCHC RDW Lymph % (Auto) Lymph # (Auto) Seg Neutrophils % Seg Neuts % (Manual) Lymphocytes % (Manual) Nucleated RBC % Seg Neutrophils # Seg Neutrophils # Man Lymphocytes # (Manual) D-Dimer ABG pH POC ABG pCO2 POC ABG pO2 ABG pO2 ABG HCO3 ABG O2 Saturation ABG Base Excess ABG Hemoglobin ABG Oxyhemoglobin ABG Sodium ABG Potassium ABG Chloride ABG Glucose Oxyhemoglobin Sodium Potassium Chloride Carbon Dioxide BUN Creatinine Glucose POC Glucose 143 H 164 H 221 H Lactic Acid Calcium Magnesium Ferritin Total Bilirubin Direct Bilirubin AST ALT Alkaline Phosphatase Lactate Dehydrogenase C-Reactive Protein Total Protein Albumin Triglycerides Arterial Blood Glucose Arterial Blood Ionized Calcium Urine WBC (Auto) Coronavirus (PCR) SARS-CoV-2 IgG Ab 05/29/20 05/29/20 05/29/20 04:15 05:33 12:34 WBC RBC Hgb Hct MCV MCH MCHC RDW Lymph % (Auto) Lymph # (Auto) Seg Neutrophils % Seg Neuts % (Manual) Lymphocytes % (Manual) Nucleated RBC % Seg Neutrophils # Seg Neutrophils # Man Lymphocytes # (Manual) D-Dimer ABG pH 7.463 H POC ABG pCO2 56.3 H POC ABG pO2 81.2 L ABG pO2 ABG HCO3 ABG O2 Saturation ABG Base Excess ABG Hemoglobin ABG Oxyhemoglobin ABG Sodium ABG Potassium ABG Chloride 96.0 L ABG Glucose 194 H Oxyhemoglobin Sodium Potassium Chloride Carbon Dioxide BUN Creatinine Glucose POC Glucose 133 H 221 H Lactic Acid Calcium Magnesium Ferritin Total Bilirubin Direct Bilirubin AST ALT Alkaline Phosphatase Lactate Dehydrogenase C-Reactive Protein Total Protein Albumin Triglycerides Arterial Blood Glucose 194 H Arterial Blood Ionized Calcium 4.5 L Urine WBC (Auto) Coronavirus (PCR) SARS-CoV-2 IgG Ab 05/29/20 05/30/20 05/30/20 18:07 00:12 05:38 WBC RBC Hgb Hct MCV MCH MCHC RDW Lymph % (Auto) Lymph # (Auto) Seg Neutrophils % Seg Neuts % (Manual) Lymphocytes % (Manual) Nucleated RBC % Seg Neutrophils # Seg Neutrophils # Man Lymphocytes # (Manual) D-Dimer ABG pH POC ABG pCO2 POC ABG pO2 ABG pO2 ABG HCO3 ABG O2 Saturation ABG Base Excess ABG Hemoglobin ABG Oxyhemoglobin ABG Sodium ABG Potassium ABG Chloride ABG Glucose Oxyhemoglobin Sodium Potassium Chloride Carbon Dioxide BUN Creatinine Glucose POC Glucose 162 H 190 H 208 H Lactic Acid Calcium Magnesium Ferritin Total Bilirubin Direct Bilirubin AST ALT Alkaline Phosphatase Lactate Dehydrogenase C-Reactive Protein Total Protein Albumin Triglycerides Arterial Blood Glucose Arterial Blood Ionized Calcium Urine WBC (Auto) Coronavirus (PCR) SARS-CoV-2 IgG Ab 05/30/20 05/30/20 05/30/20 09:30 11:35 11:54 WBC 12.4 H RBC 3.48 L Hgb 11.3 L Hct 34.6 L MCV 99 H MCH 33 H MCHC RDW Lymph % (Auto) Lymph # (Auto) Seg Neutrophils % Seg Neuts % (Manual) Lymphocytes % (Manual) Nucleated RBC % Seg Neutrophils # Seg Neutrophils # Man Lymphocytes # (Manual) D-Dimer ABG pH 7.455 H POC ABG pCO2 57.5 H POC ABG pO2 81.5 L ABG pO2 ABG HCO3 ABG O2 Saturation ABG Base Excess ABG Hemoglobin ABG Oxyhemoglobin ABG Sodium ABG Potassium ABG Chloride 96.0 L ABG Glucose 204 H Oxyhemoglobin Sodium Potassium Chloride Carbon Dioxide BUN Creatinine Glucose POC Glucose 183 H Lactic Acid Calcium Magnesium Ferritin Total Bilirubin Direct Bilirubin AST ALT Alkaline Phosphatase Lactate Dehydrogenase C-Reactive Protein Total Protein Albumin Triglycerides Arterial Blood Glucose 204 H Arterial Blood Ionized Calcium Urine WBC (Auto) Coronavirus (PCR) SARS-CoV-2 IgG Ab 05/30/20 05/31/20 05/31/20 18:01 00:10 03:22 WBC RBC Hgb Hct MCV MCH MCHC RDW Lymph % (Auto) Lymph # (Auto) Seg Neutrophils % Seg Neuts % (Manual) Lymphocytes % (Manual) Nucleated RBC % Seg Neutrophils # Seg Neutrophils # Man Lymphocytes # (Manual) D-Dimer ABG pH POC ABG pCO2 60.4 H POC ABG pO2 71.5 L ABG pO2 ABG HCO3 ABG O2 Saturation ABG Base Excess ABG Hemoglobin ABG Oxyhemoglobin ABG Sodium ABG Potassium ABG Chloride 96.0 L ABG Glucose 169 H Oxyhemoglobin Sodium Potassium Chloride Carbon Dioxide BUN Creatinine Glucose POC Glucose 184 H 135 H Lactic Acid Calcium Magnesium Ferritin Total Bilirubin Direct Bilirubin AST ALT Alkaline Phosphatase Lactate Dehydrogenase C-Reactive Protein Total Protein Albumin Triglycerides Arterial Blood Glucose 169 H Arterial Blood Ionized Calcium 4.5 L Urine WBC (Auto) Coronavirus (PCR) SARS-CoV-2 IgG Ab 05/31/20 05/31/20 05/31/20 05:24 11:18 14:41 WBC RBC Hgb Hct MCV MCH MCHC RDW Lymph % (Auto) Lymph # (Auto) Seg Neutrophils % Seg Neuts % (Manual) Lymphocytes % (Manual) Nucleated RBC % Seg Neutrophils # Seg Neutrophils # Man Lymphocytes # (Manual) D-Dimer ABG pH POC ABG pCO2 POC ABG pO2 ABG pO2 ABG HCO3 ABG O2 Saturation ABG Base Excess ABG Hemoglobin ABG Oxyhemoglobin ABG Sodium ABG Potassium ABG Chloride ABG Glucose Oxyhemoglobin Sodium Potassium Chloride 96.8 L Carbon Dioxide 37 H BUN 31 H Creatinine 0.6 L Glucose 213 H POC Glucose 164 H 208 H Lactic Acid Calcium Magnesium Ferritin Total Bilirubin Direct Bilirubin AST ALT Alkaline Phosphatase Lactate Dehydrogenase C-Reactive Protein Total Protein Albumin Triglycerides Arterial Blood Glucose Arterial Blood Ionized Calcium Urine WBC (Auto) Coronavirus (PCR) SARS-CoV-2 IgG Ab 05/31/20 05/31/20 06/01/20 17:37 23:47 03:48 WBC RBC Hgb Hct MCV MCH MCHC RDW Lymph % (Auto) Lymph # (Auto) Seg Neutrophils % Seg Neuts % (Manual) Lymphocytes % (Manual) Nucleated RBC % Seg Neutrophils # Seg Neutrophils # Man Lymphocytes # (Manual) D-Dimer ABG pH POC ABG pCO2 59.7 H POC ABG pO2 73.9 L ABG pO2 ABG HCO3 ABG O2 Saturation ABG Base Excess ABG Hemoglobin ABG Oxyhemoglobin ABG Sodium ABG Potassium ABG Chloride 95.0 L ABG Glucose 256 H Oxyhemoglobin Sodium Potassium Chloride Carbon Dioxide BUN Creatinine Glucose POC Glucose 168 H 178 H Lactic Acid Calcium Magnesium Ferritin Total Bilirubin Direct Bilirubin AST ALT Alkaline Phosphatase Lactate Dehydrogenase C-Reactive Protein Total Protein Albumin Triglycerides Arterial Blood Glucose 256 H Arterial Blood Ionized Calcium Urine WBC (Auto) Coronavirus (PCR) SARS-CoV-2 IgG Ab 06/01/20 06/01/20 06/01/20 05:01 07:47 07:47 WBC 14.4 H RBC 3.46 L Hgb 11.1 L Hct 34.3 L MCV 99 H MCH MCHC RDW Lymph % (Auto) Lymph # (Auto) Seg Neutrophils % Seg Neuts % (Manual) 86.0 H Lymphocytes % (Manual) 9.0 L Nucleated RBC % Seg Neutrophils # Seg Neutrophils # Man 12.4 H Lymphocytes # (Manual) D-Dimer ABG pH POC ABG pCO2 POC ABG pO2 ABG pO2 ABG HCO3 ABG O2 Saturation ABG Base Excess ABG Hemoglobin ABG Oxyhemoglobin ABG Sodium ABG Potassium ABG Chloride ABG Glucose Oxyhemoglobin Sodium Potassium Chloride Carbon Dioxide BUN Creatinine Glucose POC Glucose 197 H Lactic Acid Calcium Magnesium Ferritin Total Bilirubin Direct Bilirubin AST ALT Alkaline Phosphatase Lactate Dehydrogenase C-Reactive Protein Total Protein Albumin Triglycerides 244 H Arterial Blood Glucose Arterial Blood Ionized Calcium Urine WBC (Auto) Coronavirus (PCR) SARS-CoV-2 IgG Ab 06/01/20 06/01/20 06/01/20 07:47 11:46 18:15 WBC RBC Hgb Hct MCV MCH MCHC RDW Lymph % (Auto) Lymph # (Auto) Seg Neutrophils % Seg Neuts % (Manual) Lymphocytes % (Manual) Nucleated RBC % Seg Neutrophils # Seg Neutrophils # Man Lymphocytes # (Manual) D-Dimer ABG pH POC ABG pCO2 POC ABG pO2 ABG pO2 ABG HCO3 ABG O2 Saturation ABG Base Excess ABG Hemoglobin ABG Oxyhemoglobin ABG Sodium ABG Potassium ABG Chloride ABG Glucose Oxyhemoglobin Sodium Potassium Chloride 95.4 L Carbon Dioxide 35 H BUN 30 H Creatinine 0.5 L Glucose 214 H POC Glucose 181 H 221 H Lactic Acid Calcium Magnesium Ferritin Total Bilirubin Direct Bilirubin AST 54 H ALT 235 H Alkaline Phosphatase Lactate Dehydrogenase C-Reactive Protein Total Protein Albumin 2.9 L Triglycerides Arterial Blood Glucose Arterial Blood Ionized Calcium Urine WBC (Auto) Coronavirus (PCR) SARS-CoV-2 IgG Ab 06/01/20 06/02/20 06/02/20 23:12 04:00 05:31 WBC RBC Hgb Hct MCV MCH MCHC RDW Lymph % (Auto) Lymph # (Auto) Seg Neutrophils % Seg Neuts % (Manual) Lymphocytes % (Manual) Nucleated RBC % Seg Neutrophils # Seg Neutrophils # Man Lymphocytes # (Manual) D-Dimer ABG pH 7.465 H POC ABG pCO2 POC ABG pO2 ABG pO2 203.4 H ABG HCO3 41.2 H ABG O2 Saturation 99.3 H ABG Base Excess 15.1 H ABG Hemoglobin 11.5 L ABG Oxyhemoglobin ABG Sodium ABG Potassium ABG Chloride ABG Glucose Oxyhemoglobin Sodium Potassium Chloride Carbon Dioxide BUN Creatinine Glucose POC Glucose 197 H 184 H Lactic Acid Calcium Magnesium Ferritin Total Bilirubin Direct Bilirubin AST ALT Alkaline Phosphatase Lactate Dehydrogenase C-Reactive Protein Total Protein Albumin Triglycerides Arterial Blood Glucose Arterial Blood Ionized Calcium Urine WBC (Auto) Coronavirus (PCR) SARS-CoV-2 IgG Ab 06/02/20 06/02/20 06/02/20 11:49 18:06 23:00 WBC RBC Hgb Hct MCV MCH MCHC RDW Lymph % (Auto) Lymph # (Auto) Seg Neutrophils % Seg Neuts % (Manual) Lymphocytes % (Manual) Nucleated RBC % Seg Neutrophils # Seg Neutrophils # Man Lymphocytes # (Manual) D-Dimer ABG pH POC ABG pCO2 POC ABG pO2 ABG pO2 ABG HCO3 ABG O2 Saturation ABG Base Excess ABG Hemoglobin ABG Oxyhemoglobin ABG Sodium ABG Potassium ABG Chloride ABG Glucose Oxyhemoglobin Sodium Potassium Chloride Carbon Dioxide BUN Creatinine Glucose POC Glucose 195 H 177 H 228 H Lactic Acid Calcium Magnesium Ferritin Total Bilirubin Direct Bilirubin AST ALT Alkaline Phosphatase Lactate Dehydrogenase C-Reactive Protein Total Protein Albumin Triglycerides Arterial Blood Glucose Arterial Blood Ionized Calcium Urine WBC (Auto) Coronavirus (PCR) SARS-CoV-2 IgG Ab 06/03/20 06/03/20 06/03/20 03:58 05:19 12:21 WBC RBC Hgb Hct MCV MCH MCHC RDW Lymph % (Auto) Lymph # (Auto) Seg Neutrophils % Seg Neuts % (Manual) Lymphocytes % (Manual) Nucleated RBC % Seg Neutrophils # Seg Neutrophils # Man Lymphocytes # (Manual) D-Dimer ABG pH POC ABG pCO2 POC ABG pO2 ABG pO2 171.0 H ABG HCO3 42.8 H ABG O2 Saturation ABG Base Excess 15.6 H ABG Hemoglobin 12.3 L ABG Oxyhemoglobin ABG Sodium ABG Potassium ABG Chloride ABG Glucose Oxyhemoglobin Sodium Potassium Chloride Carbon Dioxide BUN Creatinine Glucose POC Glucose 122 H 207 H Lactic Acid Calcium Magnesium Ferritin Total Bilirubin Direct Bilirubin AST ALT Alkaline Phosphatase Lactate Dehydrogenase C-Reactive Protein Total Protein Albumin Triglycerides Arterial Blood Glucose Arterial Blood Ionized Calcium Urine WBC (Auto) Coronavirus (PCR) SARS-CoV-2 IgG Ab 06/03/20 06/03/20 06/04/20 17:27 23:50 03:55 WBC RBC Hgb Hct MCV MCH MCHC RDW Lymph % (Auto) Lymph # (Auto) Seg Neutrophils % Seg Neuts % (Manual) Lymphocytes % (Manual) Nucleated RBC % Seg Neutrophils # Seg Neutrophils # Man Lymphocytes # (Manual) D-Dimer ABG pH POC ABG pCO2 POC ABG pO2 ABG pO2 117.2 H ABG HCO3 42.4 H ABG O2 Saturation ABG Base Excess 15.3 H ABG Hemoglobin 10.5 L ABG Oxyhemoglobin ABG Sodium ABG Potassium ABG Chloride ABG Glucose Oxyhemoglobin Sodium Potassium Chloride Carbon Dioxide BUN Creatinine Glucose POC Glucose 157 H 214 H Lactic Acid Calcium Magnesium Ferritin Total Bilirubin Direct Bilirubin AST ALT Alkaline Phosphatase Lactate Dehydrogenase C-Reactive Protein Total Protein Albumin Triglycerides Arterial Blood Glucose Arterial Blood Ionized Calcium Urine WBC (Auto) Coronavirus (PCR) SARS-CoV-2 IgG Ab 06/04/20 06/04/20 06/04/20 05:49 11:41 17:30 WBC RBC Hgb Hct MCV MCH MCHC RDW Lymph % (Auto) Lymph # (Auto) Seg Neutrophils % Seg Neuts % (Manual) Lymphocytes % (Manual) Nucleated RBC % Seg Neutrophils # Seg Neutrophils # Man Lymphocytes # (Manual) D-Dimer ABG pH POC ABG pCO2 POC ABG pO2 ABG pO2 ABG HCO3 ABG O2 Saturation ABG Base Excess ABG Hemoglobin ABG Oxyhemoglobin ABG Sodium ABG Potassium ABG Chloride ABG Glucose Oxyhemoglobin Sodium Potassium Chloride Carbon Dioxide BUN Creatinine Glucose POC Glucose 149 H 233 H 156 H Lactic Acid Calcium Magnesium Ferritin Total Bilirubin Direct Bilirubin AST ALT Alkaline Phosphatase Lactate Dehydrogenase C-Reactive Protein Total Protein Albumin Triglycerides Arterial Blood Glucose Arterial Blood Ionized Calcium Urine WBC (Auto) Coronavirus (PCR) SARS-CoV-2 IgG Ab 06/04/20 06/04/20 06/04/20 19:01 20:53 23:41 WBC RBC 3.18 L Hgb 10.8 L Hct 31.8 L MCV 100 H MCH 34 H MCHC RDW Lymph % (Auto) Lymph # (Auto) Seg Neutrophils % Seg Neuts % (Manual) 86.0 H Lymphocytes % (Manual) 10.0 L Nucleated RBC % 1.0 H Seg Neutrophils # Seg Neutrophils # Man 8.5 H Lymphocytes # (Manual) 1.0 L D-Dimer ABG pH POC ABG pCO2 POC ABG pO2 ABG pO2 ABG HCO3 ABG O2 Saturation ABG Base Excess ABG Hemoglobin ABG Oxyhemoglobin ABG Sodium ABG Potassium ABG Chloride ABG Glucose Oxyhemoglobin Sodium Potassium 3.4 L D Chloride 96.5 L Carbon Dioxide 41 H* BUN 27 H Creatinine 0.5 L Glucose 173 H POC Glucose 217 H Lactic Acid Calcium Magnesium Ferritin Total Bilirubin Direct Bilirubin AST ALT Alkaline Phosphatase Lactate Dehydrogenase C-Reactive Protein Total Protein Albumin Triglycerides Arterial Blood Glucose Arterial Blood Ionized Calcium Urine WBC (Auto) Coronavirus (PCR) SARS-CoV-2 IgG Ab 06/05/20 06/05/20 06/05/20 06:05 11:54 12:35 WBC RBC Hgb Hct MCV MCH MCHC RDW Lymph % (Auto) Lymph # (Auto) Seg Neutrophils % Seg Neuts % (Manual) Lymphocytes % (Manual) Nucleated RBC % Seg Neutrophils # Seg Neutrophils # Man Lymphocytes # (Manual) D-Dimer ABG pH POC ABG pCO2 POC ABG pO2 ABG pO2 127.9 H ABG HCO3 41.1 H ABG O2 Saturation ABG Base Excess 13.0 H ABG Hemoglobin 13.4 L ABG Oxyhemoglobin ABG Sodium ABG Potassium ABG Chloride ABG Glucose Oxyhemoglobin Sodium Potassium Chloride Carbon Dioxide BUN Creatinine Glucose POC Glucose 137 H 211 H Lactic Acid Calcium Magnesium Ferritin Total Bilirubin Direct Bilirubin AST ALT Alkaline Phosphatase Lactate Dehydrogenase C-Reactive Protein Total Protein Albumin Triglycerides Arterial Blood Glucose Arterial Blood Ionized Calcium Urine WBC (Auto) Coronavirus (PCR) SARS-CoV-2 IgG Ab 06/05/20 06/05/20 06/06/20 17:03 23:49 04:42 WBC RBC Hgb Hct MCV MCH MCHC RDW Lymph % (Auto) Lymph # (Auto) Seg Neutrophils % Seg Neuts % (Manual) Lymphocytes % (Manual) Nucleated RBC % Seg Neutrophils # Seg Neutrophils # Man Lymphocytes # (Manual) D-Dimer ABG pH POC ABG pCO2 56.1 H POC ABG pO2 52.5 L ABG pO2 ABG HCO3 ABG O2 Saturation ABG Base Excess ABG Hemoglobin 11.7 L ABG Oxyhemoglobin ABG Sodium ABG Potassium 3.3 L ABG Chloride 95.0 L ABG Glucose 156 H Oxyhemoglobin Sodium Potassium Chloride Carbon Dioxide BUN Creatinine Glucose POC Glucose 159 H 194 H Lactic Acid Calcium Magnesium Ferritin Total Bilirubin Direct Bilirubin AST ALT Alkaline Phosphatase Lactate Dehydrogenase C-Reactive Protein Total Protein Albumin Triglycerides Arterial Blood Glucose 156 H Arterial Blood Ionized Calcium Urine WBC (Auto) Coronavirus (PCR) SARS-CoV-2 IgG Ab 06/06/20 06/06/20 06/06/20 05:57 12:06 17:38 WBC RBC Hgb Hct MCV MCH MCHC RDW Lymph % (Auto) Lymph # (Auto) Seg Neutrophils % Seg Neuts % (Manual) Lymphocytes % (Manual) Nucleated RBC % Seg Neutrophils # Seg Neutrophils # Man Lymphocytes # (Manual) D-Dimer ABG pH POC ABG pCO2 POC ABG pO2 ABG pO2 ABG HCO3 ABG O2 Saturation ABG Base Excess ABG Hemoglobin ABG Oxyhemoglobin ABG Sodium ABG Potassium ABG Chloride ABG Glucose Oxyhemoglobin Sodium Potassium Chloride Carbon Dioxide BUN Creatinine Glucose POC Glucose 144 H 230 H 162 H Lactic Acid Calcium Magnesium Ferritin Total Bilirubin Direct Bilirubin AST ALT Alkaline Phosphatase Lactate Dehydrogenase C-Reactive Protein Total Protein Albumin Triglycerides Arterial Blood Glucose Arterial Blood Ionized Calcium Urine WBC (Auto) Coronavirus (PCR) SARS-CoV-2 IgG Ab 06/06/20 06/07/20 06/07/20 23:50 04:34 06:03 WBC RBC Hgb Hct MCV MCH MCHC RDW Lymph % (Auto) Lymph # (Auto) Seg Neutrophils % Seg Neuts % (Manual) Lymphocytes % (Manual) Nucleated RBC % Seg Neutrophils # Seg Neutrophils # Man Lymphocytes # (Manual) D-Dimer ABG pH 7.511 H POC ABG pCO2 53.5 H POC ABG pO2 114.5 H ABG pO2 ABG HCO3 ABG O2 Saturation ABG Base Excess ABG Hemoglobin 9.4 L ABG Oxyhemoglobin ABG Sodium 134.5 L ABG Potassium ABG Chloride 94.0 L ABG Glucose 186 H Oxyhemoglobin Sodium Potassium Chloride Carbon Dioxide BUN Creatinine Glucose POC Glucose 181 H 155 H Lactic Acid Calcium Magnesium Ferritin Total Bilirubin Direct Bilirubin AST ALT Alkaline Phosphatase Lactate Dehydrogenase C-Reactive Protein Total Protein Albumin Triglycerides Arterial Blood Glucose 186 H Arterial Blood Ionized Calcium 4.5 L Urine WBC (Auto) Coronavirus (PCR) SARS-CoV-2 IgG Ab 06/07/20 06/07/20 06/07/20 13:41 14:58 14:58 WBC RBC 2.72 L Hgb 9.3 L Hct 27.2 L MCV 100 H MCH 34 H MCHC RDW Lymph % (Auto) Lymph # (Auto) Seg Neutrophils % Seg Neuts % (Manual) Lymphocytes % (Manual) Nucleated RBC % Seg Neutrophils # Seg Neutrophils # Man Lymphocytes # (Manual) D-Dimer ABG pH POC ABG pCO2 POC ABG pO2 ABG pO2 ABG HCO3 ABG O2 Saturation ABG Base Excess ABG Hemoglobin ABG Oxyhemoglobin ABG Sodium ABG Potassium ABG Chloride ABG Glucose Oxyhemoglobin Sodium Potassium Chloride 93.5 L Carbon Dioxide 39 H BUN 22 H Creatinine 0.4 L Glucose 188 H POC Glucose 201 H Lactic Acid Calcium Magnesium Ferritin Total Bilirubin Direct Bilirubin AST 61 H ALT 273 H Alkaline Phosphatase Lactate Dehydrogenase C-Reactive Protein Total Protein 5.9 L Albumin 2.7 L Triglycerides Arterial Blood Glucose Arterial Blood Ionized Calcium Urine WBC (Auto) Coronavirus (PCR) SARS-CoV-2 IgG Ab 06/07/20 06/08/20 06/08/20 23:18 05:31 12:07 WBC RBC Hgb Hct MCV MCH MCHC RDW Lymph % (Auto) Lymph # (Auto) Seg Neutrophils % Seg Neuts % (Manual) Lymphocytes % (Manual) Nucleated RBC % Seg Neutrophils # Seg Neutrophils # Man Lymphocytes # (Manual) D-Dimer ABG pH POC ABG pCO2 POC ABG pO2 ABG pO2 ABG HCO3 ABG O2 Saturation ABG Base Excess ABG Hemoglobin ABG Oxyhemoglobin ABG Sodium ABG Potassium ABG Chloride ABG Glucose Oxyhemoglobin Sodium Potassium Chloride Carbon Dioxide BUN Creatinine Glucose POC Glucose 214 H 129 H 179 H Lactic Acid Calcium Magnesium Ferritin Total Bilirubin Direct Bilirubin AST ALT Alkaline Phosphatase Lactate Dehydrogenase C-Reactive Protein Total Protein Albumin Triglycerides Arterial Blood Glucose Arterial Blood Ionized Calcium Urine WBC (Auto) Coronavirus (PCR) SARS-CoV-2 IgG Ab 06/08/20 06/08/20 06/09/20 18:18 23:35 05:42 WBC RBC Hgb Hct MCV MCH MCHC RDW Lymph % (Auto) Lymph # (Auto) Seg Neutrophils % Seg Neuts % (Manual) Lymphocytes % (Manual) Nucleated RBC % Seg Neutrophils # Seg Neutrophils # Man Lymphocytes # (Manual) D-Dimer ABG pH POC ABG pCO2 POC ABG pO2 ABG pO2 ABG HCO3 ABG O2 Saturation ABG Base Excess ABG Hemoglobin ABG Oxyhemoglobin ABG Sodium ABG Potassium ABG Chloride ABG Glucose Oxyhemoglobin Sodium Potassium Chloride Carbon Dioxide BUN Creatinine Glucose POC Glucose 172 H 177 H 137 H Lactic Acid Calcium Magnesium Ferritin Total Bilirubin Direct Bilirubin AST ALT Alkaline Phosphatase Lactate Dehydrogenase C-Reactive Protein Total Protein Albumin Triglycerides Arterial Blood Glucose Arterial Blood Ionized Calcium Urine WBC (Auto) Coronavirus (PCR) SARS-CoV-2 IgG Ab 06/09/20 06/09/20 06/09/20 06:20 07:55 07:55 WBC 12.4 H RBC 3.26 L Hgb 11.1 L Hct 33.4 L D MCV 102 H MCH 34 H MCHC RDW Lymph % (Auto) Lymph # (Auto) Seg Neutrophils % Seg Neuts % (Manual) Lymphocytes % (Manual) Nucleated RBC % Seg Neutrophils # Seg Neutrophils # Man Lymphocytes # (Manual) D-Dimer ABG pH 7.466 H POC ABG pCO2 50.7 H POC ABG pO2 53.0 L ABG pO2 ABG HCO3 ABG O2 Saturation ABG Base Excess ABG Hemoglobin ABG Oxyhemoglobin ABG Sodium ABG Potassium 2.9 L ABG Chloride 93.0 L ABG Glucose 138 H Oxyhemoglobin Sodium Potassium 3.0 L Chloride 92.3 L Carbon Dioxide 37 H BUN 21 H Creatinine 0.6 L Glucose 120 H POC Glucose Lactic Acid Calcium Magnesium Ferritin Total Bilirubin Direct Bilirubin AST ALT Alkaline Phosphatase Lactate Dehydrogenase C-Reactive Protein Total Protein Albumin Triglycerides Arterial Blood Glucose 138 H Arterial Blood Ionized Calcium 4.5 L Urine WBC (Auto) Coronavirus (PCR) SARS-CoV-2 IgG Ab 06/09/20 06/09/20 06/10/20 11:22 18:32 04:46 WBC RBC Hgb Hct MCV MCH MCHC RDW Lymph % (Auto) Lymph # (Auto) Seg Neutrophils % Seg Neuts % (Manual) Lymphocytes % (Manual) Nucleated RBC % Seg Neutrophils # Seg Neutrophils # Man Lymphocytes # (Manual) D-Dimer ABG pH 7.501 H POC ABG pCO2 POC ABG pO2 126.5 H ABG pO2 ABG HCO3 ABG O2 Saturation ABG Base Excess ABG Hemoglobin 10.3 L ABG Oxyhemoglobin ABG Sodium ABG Potassium ABG Chloride ABG Glucose 220 H Oxyhemoglobin Sodium Potassium Chloride Carbon Dioxide BUN Creatinine Glucose POC Glucose 117 H 121 H Lactic Acid Calcium Magnesium Ferritin Total Bilirubin Direct Bilirubin AST ALT Alkaline Phosphatase Lactate Dehydrogenase C-Reactive Protein Total Protein Albumin Triglycerides Arterial Blood Glucose 220 H Arterial Blood Ionized Calcium Urine WBC (Auto) Coronavirus (PCR) SARS-CoV-2 IgG Ab 06/10/20 06/10/20 06/10/20 05:30 09:38 12:03 WBC RBC Hgb Hct MCV MCH MCHC RDW Lymph % (Auto) Lymph # (Auto) Seg Neutrophils % Seg Neuts % (Manual) Lymphocytes % (Manual) Nucleated RBC % Seg Neutrophils # Seg Neutrophils # Man Lymphocytes # (Manual) D-Dimer ABG pH POC ABG pCO2 POC ABG pO2 ABG pO2 ABG HCO3 ABG O2 Saturation ABG Base Excess ABG Hemoglobin ABG Oxyhemoglobin ABG Sodium ABG Potassium ABG Chloride ABG Glucose Oxyhemoglobin Sodium Potassium Chloride Carbon Dioxide BUN Creatinine Glucose POC Glucose 181 H 204 H Lactic Acid Calcium Magnesium Ferritin Total Bilirubin Direct Bilirubin AST ALT Alkaline Phosphatase Lactate Dehydrogenase C-Reactive Protein Total Protein Albumin Triglycerides 738 H Arterial Blood Glucose Arterial Blood Ionized Calcium Urine WBC (Auto) Coronavirus (PCR) SARS-CoV-2 IgG Ab 06/10/20 06/11/20 06/11/20 17:17 00:04 04:38 WBC RBC Hgb Hct MCV MCH MCHC RDW Lymph % (Auto) Lymph # (Auto) Seg Neutrophils % Seg Neuts % (Manual) Lymphocytes % (Manual) Nucleated RBC % Seg Neutrophils # Seg Neutrophils # Man Lymphocytes # (Manual) D-Dimer ABG pH 7.479 H POC ABG pCO2 POC ABG pO2 76.7 L ABG pO2 ABG HCO3 ABG O2 Saturation ABG Base Excess ABG Hemoglobin 9.8 L ABG Oxyhemoglobin ABG Sodium 135.8 L ABG Potassium ABG Chloride ABG Glucose 238 H Oxyhemoglobin Sodium Potassium Chloride Carbon Dioxide BUN Creatinine Glucose POC Glucose 156 H 178 H Lactic Acid Calcium Magnesium Ferritin Total Bilirubin Direct Bilirubin AST ALT Alkaline Phosphatase Lactate Dehydrogenase C-Reactive Protein Total Protein Albumin Triglycerides Arterial Blood Glucose 238 H Arterial Blood Ionized Calcium Urine WBC (Auto) Coronavirus (PCR) SARS-CoV-2 IgG Ab 06/11/20 06/11/20 06/11/20 05:21 06:52 11:50 WBC RBC Hgb Hct MCV MCH MCHC RDW Lymph % (Auto) Lymph # (Auto) Seg Neutrophils % Seg Neuts % (Manual) Lymphocytes % (Manual) Nucleated RBC % Seg Neutrophils # Seg Neutrophils # Man Lymphocytes # (Manual) D-Dimer ABG pH POC ABG pCO2 POC ABG pO2 ABG pO2 ABG HCO3 ABG O2 Saturation ABG Base Excess ABG Hemoglobin ABG Oxyhemoglobin ABG Sodium ABG Potassium ABG Chloride ABG Glucose Oxyhemoglobin Sodium Potassium Chloride Carbon Dioxide BUN Creatinine Glucose POC Glucose 215 H 187 H Lactic Acid Calcium Magnesium Ferritin Total Bilirubin Direct Bilirubin AST ALT Alkaline Phosphatase Lactate Dehydrogenase C-Reactive Protein Total Protein Albumin Triglycerides 331 H Arterial Blood Glucose Arterial Blood Ionized Calcium Urine WBC (Auto) Coronavirus (PCR) SARS-CoV-2 IgG Ab 06/11/20 06/11/20 06/12/20 17:49 23:35 04:52 WBC RBC Hgb Hct MCV MCH MCHC RDW Lymph % (Auto) Lymph # (Auto) Seg Neutrophils % Seg Neuts % (Manual) Lymphocytes % (Manual) Nucleated RBC % Seg Neutrophils # Seg Neutrophils # Man Lymphocytes # (Manual) D-Dimer ABG pH 7.486 H POC ABG pCO2 POC ABG pO2 ABG pO2 ABG HCO3 ABG O2 Saturation ABG Base Excess ABG Hemoglobin 9.4 L ABG Oxyhemoglobin ABG Sodium ABG Potassium 3.2 L ABG Chloride ABG Glucose 209 H Oxyhemoglobin Sodium Potassium Chloride Carbon Dioxide BUN Creatinine Glucose POC Glucose 211 H 200 H Lactic Acid Calcium Magnesium Ferritin Total Bilirubin Direct Bilirubin AST ALT Alkaline Phosphatase Lactate Dehydrogenase C-Reactive Protein Total Protein Albumin Triglycerides Arterial Blood Glucose 209 H Arterial Blood Ionized Calcium Urine WBC (Auto) Coronavirus (PCR) SARS-CoV-2 IgG Ab 06/12/20 06/12/20 06/12/20 05:13 11:47 18:33 WBC RBC Hgb Hct MCV MCH MCHC RDW Lymph % (Auto) Lymph # (Auto) Seg Neutrophils % Seg Neuts % (Manual) Lymphocytes % (Manual) Nucleated RBC % Seg Neutrophils # Seg Neutrophils # Man Lymphocytes # (Manual) D-Dimer ABG pH POC ABG pCO2 POC ABG pO2 ABG pO2 ABG HCO3 ABG O2 Saturation ABG Base Excess ABG Hemoglobin ABG Oxyhemoglobin ABG Sodium ABG Potassium ABG Chloride ABG Glucose Oxyhemoglobin Sodium Potassium Chloride Carbon Dioxide BUN Creatinine Glucose POC Glucose 174 H 214 H 194 H Lactic Acid Calcium Magnesium Ferritin Total Bilirubin Direct Bilirubin AST ALT Alkaline Phosphatase Lactate Dehydrogenase C-Reactive Protein Total Protein Albumin Triglycerides Arterial Blood Glucose Arterial Blood Ionized Calcium Urine WBC (Auto) Coronavirus (PCR) SARS-CoV-2 IgG Ab 06/12/20 06/13/20 06/13/20 23:49 05:41 12:30 WBC RBC Hgb Hct MCV MCH MCHC RDW Lymph % (Auto) Lymph # (Auto) Seg Neutrophils % Seg Neuts % (Manual) Lymphocytes % (Manual) Nucleated RBC % Seg Neutrophils # Seg Neutrophils # Man Lymphocytes # (Manual) D-Dimer ABG pH POC ABG pCO2 POC ABG pO2 ABG pO2 ABG HCO3 ABG O2 Saturation ABG Base Excess ABG Hemoglobin ABG Oxyhemoglobin ABG Sodium ABG Potassium ABG Chloride ABG Glucose Oxyhemoglobin Sodium Potassium Chloride Carbon Dioxide BUN Creatinine Glucose POC Glucose 160 H 150 H 181 H Lactic Acid Calcium Magnesium Ferritin Total Bilirubin Direct Bilirubin AST ALT Alkaline Phosphatase Lactate Dehydrogenase C-Reactive Protein Total Protein Albumin Triglycerides Arterial Blood Glucose Arterial Blood Ionized Calcium Urine WBC (Auto) Coronavirus (PCR) SARS-CoV-2 IgG Ab Chest x-ray: pending Allied health notes reviewed: nursing
[2020-06-13 15:00] LABS: INR 1.13 (0.87-1.13)
[2020-06-13 15:05] LABS: Hematocrit 23.3 % (35.5-45.6); Mean Corpuscular HGB Conc 34 % (32-34); Mean Corpuscular Volume 100 fl (84-94); Platelet Count 211 K/mm3 (140-440); Red Blood Count 2.33 M/mm3 (3.65-5.03); Red Cell Distribution Width 15.7 % (13.2-15.2)
[2020-06-13 17:00] LABS: Basophils % (Manual) 0 % (0.0-1.8); Eosinophils % (Manual) 0 % (0.0-4.3); Total Cells Counted 100
[2020-06-13 17:01] LABS: Ovalocytes Few; Platelet Estimate Consistent w Auto
--- NOTE | 2020-06-13 20:53 | Progress Note ---
Assessment and Plan Assessment and Plan Patient intubated last night because of persistent hypoxia --Elevated D-dimers; on full dose anticoagulation However ID requested to get CTA chest, patient is unstable to go for CT As he is requiring high flow oxygen. -- Acute hypoxemic respiratory failure; Patient intubated and on vent support --Elevated D-dimers; check CTA to rule out PE Lower extremity venous Doppler to rule out DVT Patient is already on full dose anticoagulation per COVID-19 protocol -- Novel coronavirus infection with Bilateral pneumonia Coronavirus protocol: IV steroid therapy, IV remdesivir, isolation precautions, contact precautions, prone positioning while in bed, pulmonary toilet. consulted ID --Severe sepsis, due to COVID 19 PNA cont to treat for COVID -- Acute kidney injury (SEN) , likely vasomotor nephropathy Resolved, IV fluids, avoid nephrotoxins -- Alcohol dependence; no episodes of withdrawal symptoms Thiamine, folic acid, multivitamin, CIWA protocol. -- Elevated liver function tests Suspected secondary to alcoholic liver disease. Supportive care, alcohol cessation, patient counseled. -- DVT prophylaxis prophylactic AC with lovenox for elevated D-dimer We will closely monitor patient and adjust management as needed Patient has severe Covid pneumonia, severe hypoxia Critically ill very poor prognosis Full CODE STATUS The high probability of a clinically significant, sudden or life threatening deterioration of the [Covid pneumonia, ID, respiratory, liver] system(s) required my full and direct attention, intervention and personal management. The aggregate critical care time was [32] minutes. This time is in addition to time spent performing reported procedures but includes the following: [x] Data Review and interpretation [x] Patient assessment and monitoring of vital signs [x] Documentation [x] Medication orders and management. Subjective Date of service: 06/13/20 Principal diagnosis: Ac hypoxemic resp failure; COVID-19; Severe Sepsis; Shaggy PNA; Alcohol Abuse Interval history: Brief history; 50 YO Male with Obesity, ETOH Dependence presents to ED for evaluation for shortness of breath, generalized weakness, fatigue, malaise, body aches, decreased exercise tolerance over the past 5 days. EMS was notified and upon arrival the patient was found to be in distress with a pulse oximetry of 76% on room air as well as fever to 103 F. In the ER chest x-ray and was found to have bilateral pneumonia. Patient admitted to medical floor and initiated on pneumonia protocol as well as COVID-19 protocol. Patient severe Covid pneumonia, with persistent severe hypoxemia requiring very high flow oxygen Today on continuous BiPAP, patient is in mild distress, critically ill with very poor prognosis. Patient was on high flow oxygen but could not be maintained above 90 hence patient intubated last night electively 05/17/2020; patient with severe COVID-19 pneumonia, in isolation room Patient is on high flow oxygen, and BiPAP 05/18/20; patient feels slightly better still hypoxic, requiring continuous high flow oxygen and BiPAP Respiratory team trying to wean 05/19/20; patient is severely hypoxemic requiring continuous BiPAP today, complains of generalized weakness Trying to wean off high flow oxygen, patient is in isolation 05/20/2020; patient remains on high flow oxygen/BiPAP/100% nonrebreather. Still is hypoxemic Has sinus tachycardia patient in mild distress Wean off high flow oxygen as tolerated, pulmonary critical following 05/21/20; patient is critically ill, on continuous BiPAP remains hypoxemic in mild distress Patient has severe Covid Pneumonia with persistent hypoxemia and poor prognosis 05/22/2020 Patient was intubated last night because of persistent hypoxemia Objective - Constitutional Vitals: Vital Signs - 12hr 06/13/20 06/13/20 06/13/20 09:00 10:00 11:00 Temperature Pulse Rate 117 H 99 H 90 Pulse Rate [ From Monitor] Respiratory 30 H 30 H 30 H Rate Blood Pressure 95/61 85/56 93/63 O2 Sat by Pulse 84 91 Oximetry 06/13/20 06/13/20 06/13/20 11:29 12:00 13:00 Temperature 99.2 F Pulse Rate 89 88 83 Pulse Rate [ 88 From Monitor] Respiratory 30 H 30 H Rate Blood Pressure 93/63 93/61 96/62 O2 Sat by Pulse 97 94 96 Oximetry 06/13/20 06/13/20 06/13/20 14:00 15:00 15:32 Temperature Pulse Rate 81 79 79 Pulse Rate [ From Monitor] Respiratory 30 H 30 H Rate Blood Pressure 99/62 98/61 98/61 O2 Sat by Pulse 96 97 97 Oximetry 06/13/20 06/13/20 06/13/20 16:00 17:00 18:00 Temperature 99.5 F Pulse Rate 89 94 H 89 Pulse Rate [ 93 H From Monitor] Respiratory 30 H 25 H 30 H Rate Blood Pressure 98/65 125/75 122/74 O2 Sat by Pulse 98 94 93 Oximetry 06/13/20 06/13/20 06/13/20 19:00 19:56 20:00 Temperature 98.5 F Pulse Rate 89 114 H Pulse Rate [ 118 H From Monitor] Respiratory 6 L 20 Rate Blood Pressure 119/72 132/71 O2 Sat by Pulse 94 86 Oximetry 06/13/20 20:28 Temperature Pulse Rate 107 H Pulse Rate [ From Monitor] Respiratory Rate Blood Pressure 136/80 O2 Sat by Pulse 92 Oximetry General appearance: Present: no acute distress, well-nourished - EENT Eyes: PERRL, EOM intact ENT: hearing intact, clear oral mucosa Ears: bilateral: normal - Neck Neck: supple, normal ROM - Respiratory Respiratory effort: normal Respiratory: bilateral: CTA - Breasts Breasts: normal - Cardiovascular Rhythm: regular Heart Sounds: Present: S1 & S2. Absent: gallop, rub Extremities: pulses intact, No edema, normal color, Full ROM - Gastrointestinal General gastrointestinal: Present: soft, non-tender, non-distended, normal bowel sounds - Genitourinary Male genitourinary: normal - Integumentary Integumentary: clear, warm, dry - Musculoskeletal Musculoskeletal: 1, strength equal bilaterally - Neurologic Neurologic: moves all extremities - Psychiatric Psychiatric: memory intact, appropriate mood/affect, intact judgment & insight - Labs CBC & Chem 7: 06/13/20 14:14 06/09/20 07:55 Labs: Abnormal lab results 06/12/20 06/13/20 06/13/20 Range/Units 23:49 05:41 12:30 WBC (4.5-11.0) K/mm3 RBC (3.65-5.03) M/mm3 Hgb (11.8-15.2) gm/dl Hct (35.5-45.6) % MCV (84-94) fl MCH (28-32) pg RDW (13.2-15.2) % Seg Neuts % (Manual) (40.0-70.0) % Lymphocytes % (Manual) (13.4-35.0) % Seg Neutrophils # Man (1.8-7.7) K/mm3 POC Glucose 160 H 150 H 181 H (70-105) mg/dL 06/13/20 06/13/20 Range/Units 14:14 17:48 WBC 12.8 H (4.5-11.0) K/mm3 RBC 2.33 L (3.65-5.03) M/mm3 Hgb 8.0 L (11.8-15.2) gm/dl Hct 23.3 L (35.5-45.6) % MCV 100 H (84-94) fl MCH 34 H (28-32) pg RDW 15.7 H (13.2-15.2) % Seg Neuts % (Manual) 85.0 H (40.0-70.0) % Lymphocytes % (Manual) 10.0 L (13.4-35.0) % Seg Neutrophils # Man 10.9 H (1.8-7.7) K/mm3 POC Glucose 173 H (70-105) mg/dL
[2020-06-13] MEDS: POLYETHYLENE GLYCOL 3350 17 GM POWDER PO SCH (22:35)
[2020-06-14] MEDS: PROPOFOL 500 MG/50 ML IV SCH ×8 (00:05→21:12)
[2020-06-14] MEDS: fentaNYL DRIP Premix 2,000 MCG/100 ML BAG IV SCH ×5 (00:21→19:05)
[2020-06-14] MEDS: METOCLOPRAMIDE 10 MG/2 ML INJ IV SCH ×2 (05:13→08:20)
[2020-06-14] MEDS: methylPREDNISolone Sod Succinate 40 MG/1 ML INJ IV SCH ×2 (05:13→17:54)
[2020-06-14] MEDS: INSULIN LISPRO 100 UNIT/ML VIAL 3 mL SUB-Q SCH ×4 (05:22→17:56)
[2020-06-14 07:46] LABS: Hematocrit 29.9 % (35.5-45.6); Hemoglobin 9.7 gm/dl (11.8-15.2); Mean Corpuscular HGB Conc 32 % (32-34); Mean Corpuscular Volume 101 fl (84-94); Platelet Count 340 K/mm3 (140-440); Red Blood Count 2.97 M/mm3 (3.65-5.03); Red Cell Distribution Width 15.3 % (13.2-15.2)
[2020-06-14] MEDS: MIDAZOLAM 2 MG/2 ML INJ IV PRN (07:50)
[2020-06-14 08:05] LABS: Albumin 2.9 g/dL (3.9-5); Blood Urea Nitrogen 16 mg/dL (9-20); Calcium 9.4 mg/dL (8.4-10.2); Hemolysis Index 0
[2020-06-14 08:10] LABS: BUN/Creatinine Ratio 32
[2020-06-14] MEDS: METOPROLOL TARTRATE 5 MG/5 ML INJ IV PRN (08:19)
[2020-06-14] MEDS: MIDAZOLAM 100 MG in SODIUM CHLORIDE 0.9% 80 ML IV SCH ×2 (08:20→19:44)
[2020-06-14 09:21] LABS: Alanine Aminotransferase 81 units/L (7-56)
[2020-06-14] MEDS: FOLIC ACID 1 MG TAB PO SCH (09:57)
[2020-06-14] MEDS: FAMOTIDINE 20 MG TAB PO SCH ×2 (09:57→21:12)
[2020-06-14] MEDS: DOCUSATE SODIUM 100 MG/10 ML ORAL LIQD PO SCH ×2 (09:57→23:38)
[2020-06-14] MEDS: SENNOSIDES 8.6 MG TAB PO SCH ×2 (09:57→21:13)
[2020-06-14] MEDS: ENOXAPARIN 120 MG/0.8 ML INJ SUB-Q SCH ×2 (09:58→21:11)
[2020-06-14] MEDS: QUEtiapine 100 MG TAB PO SCH ×2 (09:59→21:12)
[2020-06-14] MEDS ORDERED: POTASSIUM CHLORIDE 20 MEQ PACKET FEEDTUBE SCH (10:00)
--- NOTE | 2020-06-14 10:59 | Progress Note ---
Assessment and Plan Acute hypoxemic respiratory failure due to COVID-19 Severe Sepsis Bilateral pneumonia Acute kidney injury (SEN) with acute tubular necrosis (ATN) Alcohol dependence Elevated liver function tests - increased FiO2 to 60 - increased peep to 12 - RN asked to place wound care consult re: skin breakdown - trend Procalcitonin - reduce duonebs frequency to BID - get CXR re: fevers - will likely need tracheostomy placement - continue care as below otherwise; - continue to wean Levophed for target MAP > 65 mmHg (@ 8 sergio's/min) - continue to wean supplemental oxygen for target O2 sat's > 92% acutely - ETT day # 23; he will need a tracheostomy once numbers better - continue Daily SAT and SBT assessment as tolerated - VAP bundle addressed - continue lung protective strategies - continue bronchodilators with pulmonary hygiene per RT - wean per pulmonary driven protocols otherwise - accuchecks with glycemic control per SSI (While critically ill target blood glucose of 140-180 mg/dL; avoid hypoglycemia) - sedation prn for target RASS -1 to -2 - continue enteral nutritional support at goal rate as tolerated - continue airborne and contact isolation - follow repeat COVID-19 testing - continue Zinc & Vit C supplementaion - continue systemic steroids for Asthma / severe COVID infection - Prone positioning as tolerated - continue empiric full dose anticoagulation re: elevated d-dimers / hypercoagulable state - NOT a candidate for COVID convalescent plasma - continue systemic steroids X >/= 10 days - complete remdesivir dosing (total 5 days) - Monitor liver function test on Remdesivir - trend inflammatory markers - ferritin, Ddimer, CRP, LDH; to aid clinical decision making - empiric AB's coverage per ID rec's otherwise - accuchecks with glycemic control per SSI (While critically ill target blood glucose of 140-180 mg/dL; avoid hypoglycemia) - avoid nephrotoxins, renally dose all medications - continue to avoid benzodiazepine's, reduce the possibility of delirium - prn analgesia per CPOT score - Maintenance of sleep-wake cycle, avoid delirium - continue to avoid benzodiazepine's, reduce the possibility of delirium - aspiration precautions - G.I. & VTE prophylaxis - PT/OT/ROM exercises - continue mobility protocols for pressure ulcer prophylaxis - Monitor hemodynamics closely - continue other care per attending / other consultants - discharge planning ongoing concurrently .... Re-evaluate in am & prn CONDITION: CRITICAL PROGNOSIS: GUARDED CODE STATUS: FULL CODE The high probability of a clinically significant, sudden or life-threatening deterioration of the [respiratory, cardiovascular, hematologic & neurologic] system(s) required my full and direct attention, intervention and personal manag ement. The aggregate critical care time was [35] minutes without overlap. Time includes spent on; [x] Data Review and interpretation [x] Patient assessment and monitoring of vital signs [x] Documentation [x] Medication orders and management Subjective Date of service: 06/14/20 Principal diagnosis: Ac hypoxemic resp failure; COVID-19; Severe Sepsis; Shaggy PNA; Alcohol Abuse Interval history: Patient is seen today for: Acute hypoxemic respiratory failure due to COVID-19; Severe Sepsis; Bilateral pneumonia; Alcohol dependence; Elevated liver function tests Seen and examined at bedside; 24hour events reviewed; nursing and respiratory care staff consulted; no adverse overnight events reported to me; resting in bed; remains on MVS; FiO2 requirements increasing; no emesis or overt aspiration Objective Vital Signs - 12hr 06/13/20 06/13/20 06/13/20 23:00 23:10 23:52 Temperature 98.7 F Pulse Rate 107 H 106 H Pulse Rate [ From Monitor] Respiratory 30 H 30 H Rate Blood Pressure 106/76 93/52 O2 Sat by Pulse 95 95 Oximetry 06/14/20 06/14/20 06/14/20 00:00 00:10 01:00 Temperature Pulse Rate 146 H 152 H 144 H Pulse Rate [ 136 H From Monitor] Respiratory 20 26 H Rate Blood Pressure 135/68 135/68 105/75 O2 Sat by Pulse 89 90 92 Oximetry 06/14/20 06/14/20 06/14/20 02:00 03:00 03:25 Temperature 98.6 F Pulse Rate 127 H 115 H Pulse Rate [ From Monitor] Respiratory 15 13 Rate Blood Pressure 95/65 104/64 O2 Sat by Pulse 95 97 Oximetry 06/14/20 06/14/20 06/14/20 04:00 04:12 05:00 Temperature Pulse Rate 127 H 122 H 127 H Pulse Rate [ 119 H From Monitor] Respiratory 20 26 H Rate Blood Pressure 113/82 113/82 137/86 O2 Sat by Pulse 94 93 99 Oximetry 06/14/20 06/14/20 06/14/20 06:00 07:00 08:00 Temperature Pulse Rate 129 H 133 H 124 H Pulse Rate [ From Monitor] Respiratory 29 H 22 29 H Rate Blood Pressure 132/93 141/91 106/71 O2 Sat by Pulse 86 91 93 Oximetry 06/14/20 06/14/20 06/14/20 08:19 09:00 10:00 Temperature Pulse Rate 150 H 110 H 135 H Pulse Rate [ From Monitor] Respiratory 14 33 H Rate Blood Pressure 141/81 108/67 143/80 O2 Sat by Pulse 100 88 Oximetry Constitutional: asleep, appears uncomfortable, other (middle aged obese male with normal respiratory effort at rest on MVS) Eyes: non-icteric ENT: oropharynx moist, other (ETT 24 cm CHILO) Neck: supple, no JVD Effort: normal Ascultation: Bilateral: diminished breath sounds, rhonchi Percussion: Bilateral: not dull Cardiovascular: regular rate and rhythm Gastrointestinal: normoactive bowel sounds, soft, non-tender, non-distended (protuberant) Integumentary: normal Extremities: no cyanosis, no edema, pulses normal, no ischemia or petechiae Neurologic: non-focal exam, pupils equal and round, CN II-XII normal, motor strength normal and, other (sedated) Psychiatric: other (sedated) CBC and BMP: 06/16/20 04:00 06/16/20 04:00 ABG, PT/INR, D-dimer: ABG ABG pH 7.443 (7.320-7.450) 06/14/20 03:58 POC ABG pCO2 51.5 mmHg (32.0-48.0) H 06/14/20 03:58 ABG pCO2 69.6 mm Hg 06/05/20 12:35 POC ABG pO2 70.0 mmHg (83-108) L 06/14/20 03:58 ABG pO2 127.9 mm Hg (80.0-90.0) H 06/05/20 12:35 POC ABG HCO3 34.4 06/14/20 03:58 ABG O2 Saturation 98.3 % (95.0-99.0) 06/05/20 12:35 PT/INR, D-dimer PT 14.4 Sec. (12.2-14.9) 06/13/20 14:14 INR 1.13 (0.87-1.13) 06/13/20 14:14 D-Dimer 1887.82 ng/mlDDU (0-234) H 05/20/20 08:16 Abnormal lab findings: Abnormal Labs 05/09/20 05/09/20 05/09/20 12:59 12:59 12:59 WBC 11.8 H RBC Hgb Hct MCV 96 H MCH 34 H MCHC 35 H RDW Lymph % (Auto) 6.9 L Lymph # (Auto) 0.8 L Seg Neutrophils % 87.5 H Seg Neuts % (Manual) Lymphocytes % (Manual) Nucleated RBC % Seg Neutrophils # 10.3 H Seg Neutrophils # Man Lymphocytes # (Manual) D-Dimer ABG pH POC ABG pCO2 POC ABG pO2 ABG pO2 ABG HCO3 ABG O2 Saturation ABG Base Excess ABG Hemoglobin ABG Oxyhemoglobin ABG Sodium ABG Potassium ABG Chloride ABG Glucose Oxyhemoglobin Sodium 130 L Potassium 3.5 L Chloride 86.4 L Carbon Dioxide BUN 33 H Creatinine 2.3 H Glucose 156 H POC Glucose Lactic Acid Calcium Magnesium Ferritin Total Bilirubin 3.40 H Direct Bilirubin 1.7 H AST 385 H ALT 134 H Alkaline Phosphatase Lactate Dehydrogenase C-Reactive Protein Total Protein Albumin 3.0 L Triglycerides Arterial Blood Glucose Arterial Blood Ionized Calcium Urine WBC (Auto) Coronavirus (PCR) SARS-CoV-2 IgG Ab 05/09/20 05/09/20 05/09/20 12:59 12:59 12:59 WBC RBC Hgb Hct MCV MCH MCHC RDW Lymph % (Auto) Lymph # (Auto) Seg Neutrophils % Seg Neuts % (Manual) Lymphocytes % (Manual) Nucleated RBC % Seg Neutrophils # Seg Neutrophils # Man Lymphocytes # (Manual) D-Dimer 3242.51 H ABG pH POC ABG pCO2 POC ABG pO2 ABG pO2 ABG HCO3 ABG O2 Saturation ABG Base Excess ABG Hemoglobin ABG Oxyhemoglobin ABG Sodium ABG Potassium ABG Chloride ABG Glucose Oxyhemoglobin Sodium Potassium Chloride Carbon Dioxide BUN Creatinine Glucose 158 H POC Glucose Lactic Acid 3.50 H* Calcium Magnesium Ferritin Total Bilirubin Direct Bilirubin AST ALT Alkaline Phosphatase Lactate Dehydrogenase 2166 H C-Reactive Protein 39.00 H Total Protein Albumin Triglycerides Arterial Blood Glucose Arterial Blood Ionized Calcium Urine WBC (Auto) Coronavirus (PCR) SARS-CoV-2 IgG Ab 05/09/20 05/09/20 05/09/20 12:59 14:20 14:20 WBC RBC Hgb Hct MCV MCH MCHC RDW Lymph % (Auto) Lymph # (Auto) Seg Neutrophils % Seg Neuts % (Manual) Lymphocytes % (Manual) Nucleated RBC % Seg Neutrophils # Seg Neutrophils # Man Lymphocytes # (Manual) D-Dimer 2861.78 H ABG pH POC ABG pCO2 POC ABG pO2 ABG pO2 ABG HCO3 ABG O2 Saturation ABG Base Excess ABG Hemoglobin ABG Oxyhemoglobin ABG Sodium ABG Potassium ABG Chloride ABG Glucose Oxyhemoglobin Sodium Potassium Chloride Carbon Dioxide BUN Creatinine Glucose POC Glucose Lactic Acid 2.20 H* Calcium Magnesium Ferritin 51003.0 H Total Bilirubin Direct Bilirubin AST ALT Alkaline Phosphatase Lactate Dehydrogenase C-Reactive Protein Total Protein Albumin Triglycerides Arterial Blood Glucose Arterial Blood Ionized Calcium Urine WBC (Auto) Coronavirus (PCR) SARS-CoV-2 IgG Ab 05/09/20 05/09/20 05/09/20 14:20 14:20 15:56 WBC RBC Hgb Hct MCV MCH MCHC RDW Lymph % (Auto) Lymph # (Auto) Seg Neutrophils % Seg Neuts % (Manual) Lymphocytes % (Manual) Nucleated RBC % Seg Neutrophils # Seg Neutrophils # Man Lymphocytes # (Manual) D-Dimer ABG pH POC ABG pCO2 POC ABG pO2 57.3 L ABG pO2 ABG HCO3 ABG O2 Saturation ABG Base Excess ABG Hemoglobin ABG Oxyhemoglobin 86.3 L ABG Sodium 129.9 L ABG Potassium ABG Chloride ABG Glucose 146 H Oxyhemoglobin Sodium Potassium Chloride Carbon Dioxide BUN Creatinine Glucose 143 H POC Glucose Lactic Acid Calcium Magnesium Ferritin 36511.0 H Total Bilirubin Direct Bilirubin AST ALT Alkaline Phosphatase Lactate Dehydrogenase 1953 H C-Reactive Protein 33.50 H Total Protein Albumin Triglycerides Arterial Blood Glucose 146 H Arterial Blood Ionized Calcium 3.9 L Urine WBC (Auto) Coronavirus (PCR) SARS-CoV-2 IgG Ab 05/10/20 05/10/20 05/10/20 10:32 10:32 18:50 WBC 15.4 H RBC Hgb Hct MCV 97 H MCH 33 H MCHC RDW 13.1 L Lymph % (Auto) Lymph # (Auto) Seg Neutrophils % Seg Neuts % (Manual) 89.0 H Lymphocytes % (Manual) 8.0 L Nucleated RBC % Seg Neutrophils # Seg Neutrophils # Man 13.7 H Lymphocytes # (Manual) D-Dimer ABG pH POC ABG pCO2 POC ABG pO2 ABG pO2 ABG HCO3 ABG O2 Saturation ABG Base Excess ABG Hemoglobin ABG Oxyhemoglobin ABG Sodium ABG Potassium ABG Chloride ABG Glucose Oxyhemoglobin Sodium 136 L Potassium Chloride 97.4 L Carbon Dioxide BUN 37 H Creatinine 1.7 H Glucose 209 H POC Glucose Lactic Acid Calcium Magnesium Ferritin > 2000.0 H Total Bilirubin Direct Bilirubin AST ALT Alkaline Phosphatase Lactate Dehydrogenase C-Reactive Protein Total Protein Albumin Triglycerides Arterial Blood Glucose Arterial Blood Ionized Calcium Urine WBC (Auto) Coronavirus (PCR) SARS-CoV-2 IgG Ab 05/10/20 05/10/20 05/10/20 18:50 19:00 Unknown WBC RBC Hgb Hct MCV MCH MCHC RDW Lymph % (Auto) Lymph # (Auto) Seg Neutrophils % Seg Neuts % (Manual) Lymphocytes % (Manual) Nucleated RBC % Seg Neutrophils # Seg Neutrophils # Man Lymphocytes # (Manual) D-Dimer > 48428 H ABG pH POC ABG pCO2 POC ABG pO2 ABG pO2 ABG HCO3 ABG O2 Saturation ABG Base Excess ABG Hemoglobin ABG Oxyhemoglobin ABG Sodium ABG Potassium ABG Chloride ABG Glucose Oxyhemoglobin Sodium Potassium Chloride Carbon Dioxide BUN Creatinine Glucose POC Glucose Lactic Acid Calcium Magnesium Ferritin Total Bilirubin Direct Bilirubin AST ALT Alkaline Phosphatase Lactate Dehydrogenase 1879 H C-Reactive Protein 24.80 H Total Protein Albumin Triglycerides Arterial Blood Glucose Arterial Blood Ionized Calcium Urine WBC (Auto) 11.0 H Coronavirus (PCR) SARS-CoV-2 IgG Ab 05/10/20 05/11/20 05/11/20 Unknown 07:30 07:30 WBC RBC Hgb Hct MCV MCH MCHC RDW Lymph % (Auto) Lymph # (Auto) Seg Neutrophils % Seg Neuts % (Manual) Lymphocytes % (Manual) Nucleated RBC % Seg Neutrophils # Seg Neutrophils # Man Lymphocytes # (Manual) D-Dimer > 2000 H ABG pH POC ABG pCO2 POC ABG pO2 ABG pO2 ABG HCO3 ABG O2 Saturation ABG Base Excess ABG Hemoglobin ABG Oxyhemoglobin ABG Sodium ABG Potassium ABG Chloride ABG Glucose Oxyhemoglobin Sodium Potassium Chloride 96.3 L Carbon Dioxide BUN 36 H Creatinine Glucose 161 H POC Glucose Lactic Acid Calcium 8.3 L Magnesium Ferritin Total Bilirubin 1.50 H Direct Bilirubin 0.6 H AST 178 H ALT 111 H Alkaline Phosphatase Lactate Dehydrogenase C-Reactive Protein Total Protein Albumin 3.0 L Triglycerides Arterial Blood Glucose Arterial Blood Ionized Calcium Urine WBC (Auto) Coronavirus (PCR) Positive A SARS-CoV-2 IgG Ab 05/11/20 05/11/20 05/11/20 07:30 07:30 07:30 WBC RBC Hgb Hct MCV MCH MCHC RDW Lymph % (Auto) Lymph # (Auto) Seg Neutrophils % Seg Neuts % (Manual) Lymphocytes % (Manual) Nucleated RBC % Seg Neutrophils # Seg Neutrophils # Man Lymphocytes # (Manual) D-Dimer ABG pH POC ABG pCO2 POC ABG pO2 ABG pO2 ABG HCO3 ABG O2 Saturation ABG Base Excess ABG Hemoglobin ABG Oxyhemoglobin ABG Sodium ABG Potassium ABG Chloride ABG Glucose Oxyhemoglobin Sodium Potassium Chloride Carbon Dioxide BUN Creatinine Glucose POC Glucose Lactic Acid Calcium Magnesium Ferritin 63337.0 H Total Bilirubin Direct Bilirubin AST ALT Alkaline Phosphatase Lactate Dehydrogenase 1523 H C-Reactive Protein 12.90 H Total Protein Albumin Triglycerides Arterial Blood Glucose Arterial Blood Ionized Calcium Urine WBC (Auto) Coronavirus (PCR) SARS-CoV-2 IgG Ab Reactive A 05/13/20 05/13/20 05/15/20 05:20 05:20 08:15 WBC RBC Hgb Hct MCV MCH MCHC RDW Lymph % (Auto) Lymph # (Auto) Seg Neutrophils % Seg Neuts % (Manual) Lymphocytes % (Manual) Nucleated RBC % Seg Neutrophils # Seg Neutrophils # Man Lymphocytes # (Manual) D-Dimer > 03807 H 5318.28 H ABG pH POC ABG pCO2 POC ABG pO2 ABG pO2 ABG HCO3 ABG O2 Saturation ABG Base Excess ABG Hemoglobin ABG Oxyhemoglobin ABG Sodium ABG Potassium ABG Chloride ABG Glucose Oxyhemoglobin Sodium Potassium Chloride Carbon Dioxide 32 H BUN 30 H Creatinine Glucose 156 H POC Glucose Lactic Acid Calcium Magnesium 2.60 H Ferritin Total Bilirubin 1.40 H Direct Bilirubin AST 121 H ALT 119 H Alkaline Phosphatase Lactate Dehydrogenase 957 H C-Reactive Protein 4.00 H Total Protein Albumin 3.0 L Triglycerides Arterial Blood Glucose Arterial Blood Ionized Calcium Urine WBC (Auto) Coronavirus (PCR) SARS-CoV-2 IgG Ab 05/15/20 05/15/20 05/15/20 08:15 08:15 08:15 WBC 12.4 H RBC Hgb Hct MCV 98 H MCH 33 H MCHC RDW Lymph % (Auto) 9.7 L Lymph # (Auto) Seg Neutrophils % 86.8 H Seg Neuts % (Manual) Lymphocytes % (Manual) Nucleated RBC % Seg Neutrophils # 10.8 H Seg Neutrophils # Man Lymphocytes # (Manual) D-Dimer ABG pH POC ABG pCO2 POC ABG pO2 ABG pO2 ABG HCO3 ABG O2 Saturation ABG Base Excess ABG Hemoglobin ABG Oxyhemoglobin ABG Sodium ABG Potassium ABG Chloride ABG Glucose Oxyhemoglobin Sodium Potassium Chloride 94.8 L Carbon Dioxide 32 H BUN 22 H Creatinine Glucose 115 H POC Glucose Lactic Acid Calcium 8.3 L Magnesium Ferritin 2494.0 H Total Bilirubin Direct Bilirubin AST 73 H ALT 121 H Alkaline Phosphatase Lactate Dehydrogenase 835 H C-Reactive Protein 3.40 H Total Protein 6.1 L Albumin 3.0 L Triglycerides Arterial Blood Glucose Arterial Blood Ionized Calcium Urine WBC (Auto) Coronavirus (PCR) SARS-CoV-2 IgG Ab 05/17/20 05/17/20 05/17/20 05:50 05:50 05:50 WBC RBC Hgb Hct MCV MCH MCHC RDW Lymph % (Auto) Lymph # (Auto) Seg Neutrophils % Seg Neuts % (Manual) Lymphocytes % (Manual) Nucleated RBC % Seg Neutrophils # Seg Neutrophils # Man Lymphocytes # (Manual) D-Dimer 2911.42 H ABG pH POC ABG pCO2 POC ABG pO2 ABG pO2 ABG HCO3 ABG O2 Saturation ABG Base Excess ABG Hemoglobin ABG Oxyhemoglobin ABG Sodium ABG Potassium ABG Chloride ABG Glucose Oxyhemoglobin Sodium 136 L Potassium Chloride 96.0 L Carbon Dioxide 34 H BUN 22 H Creatinine Glucose 140 H POC Glucose Lactic Acid Calcium Magnesium Ferritin 2082.0 H Total Bilirubin Direct Bilirubin AST ALT 75 H Alkaline Phosphatase Lactate Dehydrogenase 601 H C-Reactive Protein 2.70 H Total Protein Albumin 2.9 L Triglycerides Arterial Blood Glucose Arterial Blood Ionized Calcium Urine WBC (Auto) Coronavirus (PCR) SARS-CoV-2 IgG Ab 05/17/20 05/18/20 05/20/20 05:50 12:22 08:16 WBC RBC Hgb Hct MCV 98 H MCH 33 H MCHC RDW Lymph % (Auto) 8.0 L Lymph # (Auto) 0.8 L Seg Neutrophils % 89.3 H Seg Neuts % (Manual) Lymphocytes % (Manual) Nucleated RBC % Seg Neutrophils # 8.8 H Seg Neutrophils # Man Lymphocytes # (Manual) D-Dimer 1887.82 H ABG pH POC ABG pCO2 POC ABG pO2 ABG pO2 ABG HCO3 ABG O2 Saturation ABG Base Excess ABG Hemoglobin ABG Oxyhemoglobin ABG Sodium ABG Potassium ABG Chloride ABG Glucose Oxyhemoglobin Sodium Potassium Chloride Carbon Dioxide BUN Creatinine Glucose POC Glucose 178 H Lactic Acid Calcium Magnesium Ferritin Total Bilirubin Direct Bilirubin AST ALT Alkaline Phosphatase Lactate Dehydrogenase C-Reactive Protein Total Protein Albumin Triglycerides Arterial Blood Glucose Arterial Blood Ionized Calcium Urine WBC (Auto) Coronavirus (PCR) SARS-CoV-2 IgG Ab 05/20/20 05/20/20 05/21/20 08:16 08:16 21:10 WBC RBC Hgb Hct MCV MCH MCHC RDW Lymph % (Auto) Lymph # (Auto) Seg Neutrophils % Seg Neuts % (Manual) Lymphocytes % (Manual) Nucleated RBC % Seg Neutrophils # Seg Neutrophils # Man Lymphocytes # (Manual) D-Dimer ABG pH 7.483 H POC ABG pCO2 POC ABG pO2 ABG pO2 50.0 L ABG HCO3 27.0 H ABG O2 Saturation 86.2 L ABG Base Excess 3.7 H ABG Hemoglobin ABG Oxyhemoglobin ABG Sodium ABG Potassium ABG Chloride ABG Glucose Oxyhemoglobin 84.2 L Sodium Potassium Chloride Carbon Dioxide BUN Creatinine Glucose POC Glucose Lactic Acid Calcium Magnesium Ferritin 1960.0 H Total Bilirubin Direct Bilirubin AST ALT Alkaline Phosphatase Lactate Dehydrogenase 705 H C-Reactive Protein 3.10 H Total Protein Albumin Triglycerides Arterial Blood Glucose Arterial Blood Ionized Calcium Urine WBC (Auto) Coronavirus (PCR) SARS-CoV-2 IgG Ab 05/22/20 05/22/20 05/22/20 04:01 07:53 07:53 WBC 19.2 H RBC Hgb Hct MCV 98 H MCH 34 H MCHC RDW Lymph % (Auto) Lymph # (Auto) Seg Neutrophils % Seg Neuts % (Manual) 96.0 H Lymphocytes % (Manual) 1.0 L Nucleated RBC % Seg Neutrophils # Seg Neutrophils # Man 18.4 H Lymphocytes # (Manual) 0.2 L D-Dimer ABG pH POC ABG pCO2 53.8 H POC ABG pO2 125.5 H ABG pO2 ABG HCO3 ABG O2 Saturation ABG Base Excess ABG Hemoglobin ABG Oxyhemoglobin ABG Sodium 131.8 L ABG Potassium 4.8 H ABG Chloride 94.0 L ABG Glucose 163 H Oxyhemoglobin Sodium 131 L Potassium Chloride 93.4 L Carbon Dioxide BUN 40 H Creatinine Glucose 176 H POC Glucose Lactic Acid Calcium Magnesium 2.70 H Ferritin Total Bilirubin 1.80 H Direct Bilirubin AST 45 H ALT 116 H Alkaline Phosphatase 181 H Lactate Dehydrogenase C-Reactive Protein Total Protein Albumin 2.6 L Triglycerides Arterial Blood Glucose 163 H Arterial Blood Ionized Calcium 4.5 L Urine WBC (Auto) Coronavirus (PCR) SARS-CoV-2 IgG Ab 05/23/20 05/24/20 05/24/20 04:17 03:07 04:08 WBC RBC Hgb Hct MCV MCH MCHC RDW Lymph % (Auto) Lymph # (Auto) Seg Neutrophils % Seg Neuts % (Manual) Lymphocytes % (Manual) Nucleated RBC % Seg Neutrophils # Seg Neutrophils # Man Lymphocytes # (Manual) D-Dimer ABG pH 7.328 L POC ABG pCO2 POC ABG pO2 ABG pO2 72.8 L 73.4 L ABG HCO3 31.0 H 34.0 H ABG O2 Saturation 93.5 L ABG Base Excess 3.5 H 7.7 H ABG Hemoglobin 13.3 L 12.1 L ABG Oxyhemoglobin ABG Sodium ABG Potassium ABG Chloride ABG Glucose Oxyhemoglobin 91.5 L 94.3 L Sodium Potassium Chloride Carbon Dioxide BUN Creatinine Glucose POC Glucose 155 H Lactic Acid Calcium Magnesium Ferritin Total Bilirubin Direct Bilirubin AST ALT Alkaline Phosphatase Lactate Dehydrogenase C-Reactive Protein Total Protein Albumin Triglycerides Arterial Blood Glucose Arterial Blood Ionized Calcium Urine WBC (Auto) Coronavirus (PCR) SARS-CoV-2 IgG Ab 05/24/20 05/24/20 05/24/20 09:33 12:21 17:52 WBC RBC Hgb Hct MCV MCH MCHC RDW Lymph % (Auto) Lymph # (Auto) Seg Neutrophils % Seg Neuts % (Manual) Lymphocytes % (Manual) Nucleated RBC % Seg Neutrophils # Seg Neutrophils # Man Lymphocytes # (Manual) D-Dimer ABG pH POC ABG pCO2 POC ABG pO2 ABG pO2 ABG HCO3 ABG O2 Saturation ABG Base Excess ABG Hemoglobin ABG Oxyhemoglobin ABG Sodium ABG Potassium ABG Chloride ABG Glucose Oxyhemoglobin Sodium Potassium Chloride Carbon Dioxide 34 H D BUN 28 H Creatinine 0.7 L Glucose 168 H POC Glucose 173 H 164 H Lactic Acid Calcium Magnesium Ferritin Total Bilirubin Direct Bilirubin AST ALT Alkaline Phosphatase Lactate Dehydrogenase C-Reactive Protein Total Protein Albumin Triglycerides Arterial Blood Glucose Arterial Blood Ionized Calcium Urine WBC (Auto) Coronavirus (PCR) SARS-CoV-2 IgG Ab 05/24/20 05/25/20 05/25/20 23:47 04:29 05:46 WBC RBC Hgb Hct MCV MCH MCHC RDW Lymph % (Auto) Lymph # (Auto) Seg Neutrophils % Seg Neuts % (Manual) Lymphocytes % (Manual) Nucleated RBC % Seg Neutrophils # Seg Neutrophils # Man Lymphocytes # (Manual) D-Dimer ABG pH POC ABG pCO2 68.6 H POC ABG pO2 ABG pO2 ABG HCO3 ABG O2 Saturation ABG Base Excess ABG Hemoglobin ABG Oxyhemoglobin ABG Sodium ABG Potassium 4.7 H ABG Chloride ABG Glucose 226 H Oxyhemoglobin Sodium Potassium Chloride Carbon Dioxide BUN Creatinine Glucose POC Glucose 171 H 201 H Lactic Acid Calcium Magnesium Ferritin Total Bilirubin Direct Bilirubin AST ALT Alkaline Phosphatase Lactate Dehydrogenase C-Reactive Protein Total Protein Albumin Triglycerides Arterial Blood Glucose 226 H Arterial Blood Ionized Calcium Urine WBC (Auto) Coronavirus (PCR) SARS-CoV-2 IgG Ab 05/25/20 05/25/20 05/25/20 08:37 08:37 12:38 WBC 12.0 H RBC 3.64 L Hgb Hct MCV 99 H MCH 33 H MCHC RDW Lymph % (Auto) Lymph # (Auto) Seg Neutrophils % Seg Neuts % (Manual) Lymphocytes % (Manual) Nucleated RBC % Seg Neutrophils # Seg Neutrophils # Man Lymphocytes # (Manual) D-Dimer ABG pH POC ABG pCO2 POC ABG pO2 ABG pO2 ABG HCO3 ABG O2 Saturation ABG Base Excess ABG Hemoglobin ABG Oxyhemoglobin ABG Sodium ABG Potassium ABG Chloride ABG Glucose Oxyhemoglobin Sodium Potassium Chloride 97.3 L Carbon Dioxide 35 H BUN 25 H Creatinine 0.7 L Glucose 191 H POC Glucose 182 H Lactic Acid Calcium Magnesium Ferritin Total Bilirubin Direct Bilirubin AST ALT Alkaline Phosphatase Lactate Dehydrogenase C-Reactive Protein Total Protein Albumin Triglycerides Arterial Blood Glucose Arterial Blood Ionized Calcium Urine WBC (Auto) Coronavirus (PCR) SARS-CoV-2 IgG Ab 05/25/20 05/26/20 05/26/20 18:16 00:06 04:50 WBC RBC Hgb Hct MCV MCH MCHC RDW Lymph % (Auto) Lymph # (Auto) Seg Neutrophils % Seg Neuts % (Manual) Lymphocytes % (Manual) Nucleated RBC % Seg Neutrophils # Seg Neutrophils # Man Lymphocytes # (Manual) D-Dimer ABG pH POC ABG pCO2 POC ABG pO2 ABG pO2 221.5 H ABG HCO3 40.4 H ABG O2 Saturation 99.3 H ABG Base Excess 12.8 H ABG Hemoglobin 10.4 L ABG Oxyhemoglobin ABG Sodium ABG Potassium ABG Chloride ABG Glucose Oxyhemoglobin Sodium Potassium Chloride Carbon Dioxide BUN Creatinine Glucose POC Glucose 176 H 152 H Lactic Acid Calcium Magnesium Ferritin Total Bilirubin Direct Bilirubin AST ALT Alkaline Phosphatase Lactate Dehydrogenase C-Reactive Protein Total Protein Albumin Triglycerides Arterial Blood Glucose Arterial Blood Ionized Calcium Urine WBC (Auto) Coronavirus (PCR) SARS-CoV-2 IgG Ab 05/26/20 05/26/20 05/26/20 06:11 07:51 07:51 WBC 13.4 H RBC 3.64 L Hgb Hct MCV 98 H MCH 33 H MCHC RDW Lymph % (Auto) Lymph # (Auto) Seg Neutrophils % Seg Neuts % (Manual) Lymphocytes % (Manual) Nucleated RBC % Seg Neutrophils # Seg Neutrophils # Man Lymphocytes # (Manual) D-Dimer ABG pH POC ABG pCO2 POC ABG pO2 ABG pO2 ABG HCO3 ABG O2 Saturation ABG Base Excess ABG Hemoglobin ABG Oxyhemoglobin ABG Sodium ABG Potassium ABG Chloride ABG Glucose Oxyhemoglobin Sodium Potassium Chloride 96.6 L Carbon Dioxide 39 H BUN 29 H Creatinine 0.7 L Glucose 174 H POC Glucose 165 H Lactic Acid Calcium Magnesium Ferritin Total Bilirubin Direct Bilirubin AST ALT Alkaline Phosphatase Lactate Dehydrogenase C-Reactive Protein Total Protein Albumin Triglycerides Arterial Blood Glucose Arterial Blood Ionized Calcium Urine WBC (Auto) Coronavirus (PCR) SARS-CoV-2 IgG Ab 05/26/20 05/27/20 05/27/20 23:23 03:43 05:29 WBC RBC Hgb Hct MCV MCH MCHC RDW Lymph % (Auto) Lymph # (Auto) Seg Neutrophils % Seg Neuts % (Manual) Lymphocytes % (Manual) Nucleated RBC % Seg Neutrophils # Seg Neutrophils # Man Lymphocytes # (Manual) D-Dimer ABG pH 7.480 H POC ABG pCO2 52.4 H POC ABG pO2 61.4 L ABG pO2 ABG HCO3 ABG O2 Saturation ABG Base Excess ABG Hemoglobin ABG Oxyhemoglobin ABG Sodium 134.9 L ABG Potassium ABG Chloride 95.0 L ABG Glucose 221 H Oxyhemoglobin Sodium Potassium Chloride Carbon Dioxide BUN Creatinine Glucose POC Glucose 169 H 227 H Lactic Acid Calcium Magnesium Ferritin Total Bilirubin Direct Bilirubin AST ALT Alkaline Phosphatase Lactate Dehydrogenase C-Reactive Protein Total Protein Albumin Triglycerides Arterial Blood Glucose 221 H Arterial Blood Ionized Calcium 4.5 L Urine WBC (Auto) Coronavirus (PCR) SARS-CoV-2 IgG Ab 05/27/20 05/27/20 05/27/20 07:19 12:18 13:50 WBC RBC Hgb Hct MCV MCH MCHC RDW Lymph % (Auto) Lymph # (Auto) Seg Neutrophils % Seg Neuts % (Manual) Lymphocytes % (Manual) Nucleated RBC % Seg Neutrophils # Seg Neutrophils # Man Lymphocytes # (Manual) D-Dimer ABG pH POC ABG pCO2 POC ABG pO2 ABG pO2 ABG HCO3 ABG O2 Saturation ABG Base Excess ABG Hemoglobin ABG Oxyhemoglobin ABG Sodium ABG Potassium ABG Chloride ABG Glucose Oxyhemoglobin Sodium Potassium Chloride Carbon Dioxide BUN Creatinine Glucose POC Glucose 114 H 148 H Lactic Acid Calcium Magnesium Ferritin Total Bilirubin Direct Bilirubin AST ALT Alkaline Phosphatase Lactate Dehydrogenase C-Reactive Protein Total Protein Albumin Triglycerides 247 H Arterial Blood Glucose Arterial Blood Ionized Calcium Urine WBC (Auto) Coronavirus (PCR) SARS-CoV-2 IgG Ab 05/28/20 05/28/20 05/28/20 00:13 04:16 05:22 WBC RBC Hgb Hct MCV MCH MCHC RDW Lymph % (Auto) Lymph # (Auto) Seg Neutrophils % Seg Neuts % (Manual) Lymphocytes % (Manual) Nucleated RBC % Seg Neutrophils # Seg Neutrophils # Man Lymphocytes # (Manual) D-Dimer ABG pH POC ABG pCO2 64.4 H POC ABG pO2 60.5 L ABG pO2 ABG HCO3 ABG O2 Saturation ABG Base Excess ABG Hemoglobin ABG Oxyhemoglobin ABG Sodium ABG Potassium ABG Chloride 95.0 L ABG Glucose 209 H Oxyhemoglobin Sodium Potassium Chloride Carbon Dioxide BUN Creatinine Glucose POC Glucose 155 H 186 H Lactic Acid Calcium Magnesium Ferritin Total Bilirubin Direct Bilirubin AST ALT Alkaline Phosphatase Lactate Dehydrogenase C-Reactive Protein Total Protein Albumin Triglycerides Arterial Blood Glucose 209 H Arterial Blood Ionized Calcium Urine WBC (Auto) Coronavirus (PCR) SARS-CoV-2 IgG Ab 05/28/20 05/28/20 05/29/20 12:45 17:39 00:37 WBC RBC Hgb Hct MCV MCH MCHC RDW Lymph % (Auto) Lymph # (Auto) Seg Neutrophils % Seg Neuts % (Manual) Lymphocytes % (Manual) Nucleated RBC % Seg Neutrophils # Seg Neutrophils # Man Lymphocytes # (Manual) D-Dimer ABG pH POC ABG pCO2 POC ABG pO2 ABG pO2 ABG HCO3 ABG O2 Saturation ABG Base Excess ABG Hemoglobin ABG Oxyhemoglobin ABG Sodium ABG Potassium ABG Chloride ABG Glucose Oxyhemoglobin Sodium Potassium Chloride Carbon Dioxide BUN Creatinine Glucose POC Glucose 143 H 164 H 221 H Lactic Acid Calcium Magnesium Ferritin Total Bilirubin Direct Bilirubin AST ALT Alkaline Phosphatase Lactate Dehydrogenase C-Reactive Protein Total Protein Albumin Triglycerides Arterial Blood Glucose Arterial Blood Ionized Calcium Urine WBC (Auto) Coronavirus (PCR) SARS-CoV-2 IgG Ab 05/29/20 05/29/20 05/29/20 04:15 05:33 12:34 WBC RBC Hgb Hct MCV MCH MCHC RDW Lymph % (Auto) Lymph # (Auto) Seg Neutrophils % Seg Neuts % (Manual) Lymphocytes % (Manual) Nucleated RBC % Seg Neutrophils # Seg Neutrophils # Man Lymphocytes # (Manual) D-Dimer ABG pH 7.463 H POC ABG pCO2 56.3 H POC ABG pO2 81.2 L ABG pO2 ABG HCO3 ABG O2 Saturation ABG Base Excess ABG Hemoglobin ABG Oxyhemoglobin ABG Sodium ABG Potassium ABG Chloride 96.0 L ABG Glucose 194 H Oxyhemoglobin Sodium Potassium Chloride Carbon Dioxide BUN Creatinine Glucose POC Glucose 133 H 221 H Lactic Acid Calcium Magnesium Ferritin Total Bilirubin Direct Bilirubin AST ALT Alkaline Phosphatase Lactate Dehydrogenase C-Reactive Protein Total Protein Albumin Triglycerides Arterial Blood Glucose 194 H Arterial Blood Ionized Calcium 4.5 L Urine WBC (Auto) Coronavirus (PCR) SARS-CoV-2 IgG Ab 05/29/20 05/30/20 05/30/20 18:07 00:12 05:38 WBC RBC Hgb Hct MCV MCH MCHC RDW Lymph % (Auto) Lymph # (Auto) Seg Neutrophils % Seg Neuts % (Manual) Lymphocytes % (Manual) Nucleated RBC % Seg Neutrophils # Seg Neutrophils # Man Lymphocytes # (Manual) D-Dimer ABG pH POC ABG pCO2 POC ABG pO2 ABG pO2 ABG HCO3 ABG O2 Saturation ABG Base Excess ABG Hemoglobin ABG Oxyhemoglobin ABG Sodium ABG Potassium ABG Chloride ABG Glucose Oxyhemoglobin Sodium Potassium Chloride Carbon Dioxide BUN Creatinine Glucose POC Glucose 162 H 190 H 208 H Lactic Acid Calcium Magnesium Ferritin Total Bilirubin Direct Bilirubin AST ALT Alkaline Phosphatase Lactate Dehydrogenase C-Reactive Protein Total Protein Albumin Triglycerides Arterial Blood Glucose Arterial Blood Ionized Calcium Urine WBC (Auto) Coronavirus (PCR) SARS-CoV-2 IgG Ab 05/30/20 05/30/20 05/30/20 09:30 11:35 11:54 WBC 12.4 H RBC 3.48 L Hgb 11.3 L Hct 34.6 L MCV 99 H MCH 33 H MCHC RDW Lymph % (Auto) Lymph # (Auto) Seg Neutrophils % Seg Neuts % (Manual) Lymphocytes % (Manual) Nucleated RBC % Seg Neutrophils # Seg Neutrophils # Man Lymphocytes # (Manual) D-Dimer ABG pH 7.455 H POC ABG pCO2 57.5 H POC ABG pO2 81.5 L ABG pO2 ABG HCO3 ABG O2 Saturation ABG Base Excess ABG Hemoglobin ABG Oxyhemoglobin ABG Sodium ABG Potassium ABG Chloride 96.0 L ABG Glucose 204 H Oxyhemoglobin Sodium Potassium Chloride Carbon Dioxide BUN Creatinine Glucose POC Glucose 183 H Lactic Acid Calcium Magnesium Ferritin Total Bilirubin Direct Bilirubin AST ALT Alkaline Phosphatase Lactate Dehydrogenase C-Reactive Protein Total Protein Albumin Triglycerides Arterial Blood Glucose 204 H Arterial Blood Ionized Calcium Urine WBC (Auto) Coronavirus (PCR) SARS-CoV-2 IgG Ab 05/30/20 05/31/20 05/31/20 18:01 00:10 03:22 WBC RBC Hgb Hct MCV MCH MCHC RDW Lymph % (Auto) Lymph # (Auto) Seg Neutrophils % Seg Neuts % (Manual) Lymphocytes % (Manual) Nucleated RBC % Seg Neutrophils # Seg Neutrophils # Man Lymphocytes # (Manual) D-Dimer ABG pH POC ABG pCO2 60.4 H POC ABG pO2 71.5 L ABG pO2 ABG HCO3 ABG O2 Saturation ABG Base Excess ABG Hemoglobin ABG Oxyhemoglobin ABG Sodium ABG Potassium ABG Chloride 96.0 L ABG Glucose 169 H Oxyhemoglobin Sodium Potassium Chloride Carbon Dioxide BUN Creatinine Glucose POC Glucose 184 H 135 H Lactic Acid Calcium Magnesium Ferritin Total Bilirubin Direct Bilirubin AST ALT Alkaline Phosphatase Lactate Dehydrogenase C-Reactive Protein Total Protein Albumin Triglycerides Arterial Blood Glucose 169 H Arterial Blood Ionized Calcium 4.5 L Urine WBC (Auto) Coronavirus (PCR) SARS-CoV-2 IgG Ab 05/31/20 05/31/20 05/31/20 05:24 11:18 14:41 WBC RBC Hgb Hct MCV MCH MCHC RDW Lymph % (Auto) Lymph # (Auto) Seg Neutrophils % Seg Neuts % (Manual) Lymphocytes % (Manual) Nucleated RBC % Seg Neutrophils # Seg Neutrophils # Man Lymphocytes # (Manual) D-Dimer ABG pH POC ABG pCO2 POC ABG pO2 ABG pO2 ABG HCO3 ABG O2 Saturation ABG Base Excess ABG Hemoglobin ABG Oxyhemoglobin ABG Sodium ABG Potassium ABG Chloride ABG Glucose Oxyhemoglobin Sodium Potassium Chloride 96.8 L Carbon Dioxide 37 H BUN 31 H Creatinine 0.6 L Glucose 213 H POC Glucose 164 H 208 H Lactic Acid Calcium Magnesium Ferritin Total Bilirubin Direct Bilirubin AST ALT Alkaline Phosphatase Lactate Dehydrogenase C-Reactive Protein Total Protein Albumin Triglycerides Arterial Blood Glucose Arterial Blood Ionized Calcium Urine WBC (Auto) Coronavirus (PCR) SARS-CoV-2 IgG Ab 05/31/20 05/31/20 06/01/20 17:37 23:47 03:48 WBC RBC Hgb Hct MCV MCH MCHC RDW Lymph % (Auto) Lymph # (Auto) Seg Neutrophils % Seg Neuts % (Manual) Lymphocytes % (Manual) Nucleated RBC % Seg Neutrophils # Seg Neutrophils # Man Lymphocytes # (Manual) D-Dimer ABG pH POC ABG pCO2 59.7 H POC ABG pO2 73.9 L ABG pO2 ABG HCO3 ABG O2 Saturation ABG Base Excess ABG Hemoglobin ABG Oxyhemoglobin ABG Sodium ABG Potassium ABG Chloride 95.0 L ABG Glucose 256 H Oxyhemoglobin Sodium Potassium Chloride Carbon Dioxide BUN Creatinine Glucose POC Glucose 168 H 178 H Lactic Acid Calcium Magnesium Ferritin Total Bilirubin Direct Bilirubin AST ALT Alkaline Phosphatase Lactate Dehydrogenase C-Reactive Protein Total Protein Albumin Triglycerides Arterial Blood Glucose 256 H Arterial Blood Ionized Calcium Urine WBC (Auto) Coronavirus (PCR) SARS-CoV-2 IgG Ab 06/01/20 06/01/20 06/01/20 05:01 07:47 07:47 WBC 14.4 H RBC 3.46 L Hgb 11.1 L Hct 34.3 L MCV 99 H MCH MCHC RDW Lymph % (Auto) Lymph # (Auto) Seg Neutrophils % Seg Neuts % (Manual) 86.0 H Lymphocytes % (Manual) 9.0 L Nucleated RBC % Seg Neutrophils # Seg Neutrophils # Man 12.4 H Lymphocytes # (Manual) D-Dimer ABG pH POC ABG pCO2 POC ABG pO2 ABG pO2 ABG HCO3 ABG O2 Saturation ABG Base Excess ABG Hemoglobin ABG Oxyhemoglobin ABG Sodium ABG Potassium ABG Chloride ABG Glucose Oxyhemoglobin Sodium Potassium Chloride Carbon Dioxide BUN Creatinine Glucose POC Glucose 197 H Lactic Acid Calcium Magnesium Ferritin Total Bilirubin Direct Bilirubin AST ALT Alkaline Phosphatase Lactate Dehydrogenase C-Reactive Protein Total Protein Albumin Triglycerides 244 H Arterial Blood Glucose Arterial Blood Ionized Calcium Urine WBC (Auto) Coronavirus (PCR) SARS-CoV-2 IgG Ab 06/01/20 06/01/20 06/01/20 07:47 11:46 18:15 WBC RBC Hgb Hct MCV MCH MCHC RDW Lymph % (Auto) Lymph # (Auto) Seg Neutrophils % Seg Neuts % (Manual) Lymphocytes % (Manual) Nucleated RBC % Seg Neutrophils # Seg Neutrophils # Man Lymphocytes # (Manual) D-Dimer ABG pH POC ABG pCO2 POC ABG pO2 ABG pO2 ABG HCO3 ABG O2 Saturation ABG Base Excess ABG Hemoglobin ABG Oxyhemoglobin ABG Sodium ABG Potassium ABG Chloride ABG Glucose Oxyhemoglobin Sodium Potassium Chloride 95.4 L Carbon Dioxide 35 H BUN 30 H Creatinine 0.5 L Glucose 214 H POC Glucose 181 H 221 H Lactic Acid Calcium Magnesium Ferritin Total Bilirubin Direct Bilirubin AST 54 H ALT 235 H Alkaline Phosphatase Lactate Dehydrogenase C-Reactive Protein Total Protein Albumin 2.9 L Triglycerides Arterial Blood Glucose Arterial Blood Ionized Calcium Urine WBC (Auto) Coronavirus (PCR) SARS-CoV-2 IgG Ab 06/01/20 06/02/20 06/02/20 23:12 04:00 05:31 WBC RBC Hgb Hct MCV MCH MCHC RDW Lymph % (Auto) Lymph # (Auto) Seg Neutrophils % Seg Neuts % (Manual) Lymphocytes % (Manual) Nucleated RBC % Seg Neutrophils # Seg Neutrophils # Man Lymphocytes # (Manual) D-Dimer ABG pH 7.465 H POC ABG pCO2 POC ABG pO2 ABG pO2 203.4 H ABG HCO3 41.2 H ABG O2 Saturation 99.3 H ABG Base Excess 15.1 H ABG Hemoglobin 11.5 L ABG Oxyhemoglobin ABG Sodium ABG Potassium ABG Chloride ABG Glucose Oxyhemoglobin Sodium Potassium Chloride Carbon Dioxide BUN Creatinine Glucose POC Glucose 197 H 184 H Lactic Acid Calcium Magnesium Ferritin Total Bilirubin Direct Bilirubin AST ALT Alkaline Phosphatase Lactate Dehydrogenase C-Reactive Protein Total Protein Albumin Triglycerides Arterial Blood Glucose Arterial Blood Ionized Calcium Urine WBC (Auto) Coronavirus (PCR) SARS-CoV-2 IgG Ab 06/02/20 06/02/20 06/02/20 11:49 18:06 23:00 WBC RBC Hgb Hct MCV MCH MCHC RDW Lymph % (Auto) Lymph # (Auto) Seg Neutrophils % Seg Neuts % (Manual) Lymphocytes % (Manual) Nucleated RBC % Seg Neutrophils # Seg Neutrophils # Man Lymphocytes # (Manual) D-Dimer ABG pH POC ABG pCO2 POC ABG pO2 ABG pO2 ABG HCO3 ABG O2 Saturation ABG Base Excess ABG Hemoglobin ABG Oxyhemoglobin ABG Sodium ABG Potassium ABG Chloride ABG Glucose Oxyhemoglobin Sodium Potassium Chloride Carbon Dioxide BUN Creatinine Glucose POC Glucose 195 H 177 H 228 H Lactic Acid Calcium Magnesium Ferritin Total Bilirubin Direct Bilirubin AST ALT Alkaline Phosphatase Lactate Dehydrogenase C-Reactive Protein Total Protein Albumin Triglycerides Arterial Blood Glucose Arterial Blood Ionized Calcium Urine WBC (Auto) Coronavirus (PCR) SARS-CoV-2 IgG Ab 06/03/20 06/03/20 06/03/20 03:58 05:19 12:21 WBC RBC Hgb Hct MCV MCH MCHC RDW Lymph % (Auto) Lymph # (Auto) Seg Neutrophils % Seg Neuts % (Manual) Lymphocytes % (Manual) Nucleated RBC % Seg Neutrophils # Seg Neutrophils # Man Lymphocytes # (Manual) D-Dimer ABG pH POC ABG pCO2 POC ABG pO2 ABG pO2 171.0 H ABG HCO3 42.8 H ABG O2 Saturation ABG Base Excess 15.6 H ABG Hemoglobin 12.3 L ABG Oxyhemoglobin ABG Sodium ABG Potassium ABG Chloride ABG Glucose Oxyhemoglobin Sodium Potassium Chloride Carbon Dioxide BUN Creatinine Glucose POC Glucose 122 H 207 H Lactic Acid Calcium Magnesium Ferritin Total Bilirubin Direct Bilirubin AST ALT Alkaline Phosphatase Lactate Dehydrogenase C-Reactive Protein Total Protein Albumin Triglycerides Arterial Blood Glucose Arterial Blood Ionized Calcium Urine WBC (Auto) Coronavirus (PCR) SARS-CoV-2 IgG Ab 06/03/20 06/03/20 06/04/20 17:27 23:50 03:55 WBC RBC Hgb Hct MCV MCH MCHC RDW Lymph % (Auto) Lymph # (Auto) Seg Neutrophils % Seg Neuts % (Manual) Lymphocytes % (Manual) Nucleated RBC % Seg Neutrophils # Seg Neutrophils # Man Lymphocytes # (Manual) D-Dimer ABG pH POC ABG pCO2 POC ABG pO2 ABG pO2 117.2 H ABG HCO3 42.4 H ABG O2 Saturation ABG Base Excess 15.3 H ABG Hemoglobin 10.5 L ABG Oxyhemoglobin ABG Sodium ABG Potassium ABG Chloride ABG Glucose Oxyhemoglobin Sodium Potassium Chloride Carbon Dioxide BUN Creatinine Glucose POC Glucose 157 H 214 H Lactic Acid Calcium Magnesium Ferritin Total Bilirubin Direct Bilirubin AST ALT Alkaline Phosphatase Lactate Dehydrogenase C-Reactive Protein Total Protein Albumin Triglycerides Arterial Blood Glucose Arterial Blood Ionized Calcium Urine WBC (Auto) Coronavirus (PCR) SARS-CoV-2 IgG Ab 06/04/20 06/04/20 06/04/20 05:49 11:41 17:30 WBC RBC Hgb Hct MCV MCH MCHC RDW Lymph % (Auto) Lymph # (Auto) Seg Neutrophils % Seg Neuts % (Manual) Lymphocytes % (Manual) Nucleated RBC % Seg Neutrophils # Seg Neutrophils # Man Lymphocytes # (Manual) D-Dimer ABG pH POC ABG pCO2 POC ABG pO2 ABG pO2 ABG HCO3 ABG O2 Saturation ABG Base Excess ABG Hemoglobin ABG Oxyhemoglobin ABG Sodium ABG Potassium ABG Chloride ABG Glucose Oxyhemoglobin Sodium Potassium Chloride Carbon Dioxide BUN Creatinine Glucose POC Glucose 149 H 233 H 156 H Lactic Acid Calcium Magnesium Ferritin Total Bilirubin Direct Bilirubin AST ALT Alkaline Phosphatase Lactate Dehydrogenase C-Reactive Protein Total Protein Albumin Triglycerides Arterial Blood Glucose Arterial Blood Ionized Calcium Urine WBC (Auto) Coronavirus (PCR) SARS-CoV-2 IgG Ab 06/04/20 06/04/20 06/04/20 19:01 20:53 23:41 WBC RBC 3.18 L Hgb 10.8 L Hct 31.8 L MCV 100 H MCH 34 H MCHC RDW Lymph % (Auto) Lymph # (Auto) Seg Neutrophils % Seg Neuts % (Manual) 86.0 H Lymphocytes % (Manual) 10.0 L Nucleated RBC % 1.0 H Seg Neutrophils # Seg Neutrophils # Man 8.5 H Lymphocytes # (Manual) 1.0 L D-Dimer ABG pH POC ABG pCO2 POC ABG pO2 ABG pO2 ABG HCO3 ABG O2 Saturation ABG Base Excess ABG Hemoglobin ABG Oxyhemoglobin ABG Sodium ABG Potassium ABG Chloride ABG Glucose Oxyhemoglobin Sodium Potassium 3.4 L D Chloride 96.5 L Carbon Dioxide 41 H* BUN 27 H Creatinine 0.5 L Glucose 173 H POC Glucose 217 H Lactic Acid Calcium Magnesium Ferritin Total Bilirubin Direct Bilirubin AST ALT Alkaline Phosphatase Lactate Dehydrogenase C-Reactive Protein Total Protein Albumin Triglycerides Arterial Blood Glucose Arterial Blood Ionized Calcium Urine WBC (Auto) Coronavirus (PCR) SARS-CoV-2 IgG Ab 06/05/20 06/05/20 06/05/20 06:05 11:54 12:35 WBC RBC Hgb Hct MCV MCH MCHC RDW Lymph % (Auto) Lymph # (Auto) Seg Neutrophils % Seg Neuts % (Manual) Lymphocytes % (Manual) Nucleated RBC % Seg Neutrophils # Seg Neutrophils # Man Lymphocytes # (Manual) D-Dimer ABG pH POC ABG pCO2 POC ABG pO2 ABG pO2 127.9 H ABG HCO3 41.1 H ABG O2 Saturation ABG Base Excess 13.0 H ABG Hemoglobin 13.4 L ABG Oxyhemoglobin ABG Sodium ABG Potassium ABG Chloride ABG Glucose Oxyhemoglobin Sodium Potassium Chloride Carbon Dioxide BUN Creatinine Glucose POC Glucose 137 H 211 H Lactic Acid Calcium Magnesium Ferritin Total Bilirubin Direct Bilirubin AST ALT Alkaline Phosphatase Lactate Dehydrogenase C-Reactive Protein Total Protein Albumin Triglycerides Arterial Blood Glucose Arterial Blood Ionized Calcium Urine WBC (Auto) Coronavirus (PCR) SARS-CoV-2 IgG Ab 06/05/20 06/05/20 06/06/20 17:03 23:49 04:42 WBC RBC Hgb Hct MCV MCH MCHC RDW Lymph % (Auto) Lymph # (Auto) Seg Neutrophils % Seg Neuts % (Manual) Lymphocytes % (Manual) Nucleated RBC % Seg Neutrophils # Seg Neutrophils # Man Lymphocytes # (Manual) D-Dimer ABG pH POC ABG pCO2 56.1 H POC ABG pO2 52.5 L ABG pO2 ABG HCO3 ABG O2 Saturation ABG Base Excess ABG Hemoglobin 11.7 L ABG Oxyhemoglobin ABG Sodium ABG Potassium 3.3 L ABG Chloride 95.0 L ABG Glucose 156 H Oxyhemoglobin Sodium Potassium Chloride Carbon Dioxide BUN Creatinine Glucose POC Glucose 159 H 194 H Lactic Acid Calcium Magnesium Ferritin Total Bilirubin Direct Bilirubin AST ALT Alkaline Phosphatase Lactate Dehydrogenase C-Reactive Protein Total Protein Albumin Triglycerides Arterial Blood Glucose 156 H Arterial Blood Ionized Calcium Urine WBC (Auto) Coronavirus (PCR) SARS-CoV-2 IgG Ab 06/06/20 06/06/20 06/06/20 05:57 12:06 17:38 WBC RBC Hgb Hct MCV MCH MCHC RDW Lymph % (Auto) Lymph # (Auto) Seg Neutrophils % Seg Neuts % (Manual) Lymphocytes % (Manual) Nucleated RBC % Seg Neutrophils # Seg Neutrophils # Man Lymphocytes # (Manual) D-Dimer ABG pH POC ABG pCO2 POC ABG pO2 ABG pO2 ABG HCO3 ABG O2 Saturation ABG Base Excess ABG Hemoglobin ABG Oxyhemoglobin ABG Sodium ABG Potassium ABG Chloride ABG Glucose Oxyhemoglobin Sodium Potassium Chloride Carbon Dioxide BUN Creatinine Glucose POC Glucose 144 H 230 H 162 H Lactic Acid Calcium Magnesium Ferritin Total Bilirubin Direct Bilirubin AST ALT Alkaline Phosphatase Lactate Dehydrogenase C-Reactive Protein Total Protein Albumin Triglycerides Arterial Blood Glucose Arterial Blood Ionized Calcium Urine WBC (Auto) Coronavirus (PCR) SARS-CoV-2 IgG Ab 06/06/20 06/07/20 06/07/20 23:50 04:34 06:03 WBC RBC Hgb Hct MCV MCH MCHC RDW Lymph % (Auto) Lymph # (Auto) Seg Neutrophils % Seg Neuts % (Manual) Lymphocytes % (Manual) Nucleated RBC % Seg Neutrophils # Seg Neutrophils # Man Lymphocytes # (Manual) D-Dimer ABG pH 7.511 H POC ABG pCO2 53.5 H POC ABG pO2 114.5 H ABG pO2 ABG HCO3 ABG O2 Saturation ABG Base Excess ABG Hemoglobin 9.4 L ABG Oxyhemoglobin ABG Sodium 134.5 L ABG Potassium ABG Chloride 94.0 L ABG Glucose 186 H Oxyhemoglobin Sodium Potassium Chloride Carbon Dioxide BUN Creatinine Glucose POC Glucose 181 H 155 H Lactic Acid Calcium Magnesium Ferritin Total Bilirubin Direct Bilirubin AST ALT Alkaline Phosphatase Lactate Dehydrogenase C-Reactive Protein Total Protein Albumin Triglycerides Arterial Blood Glucose 186 H Arterial Blood Ionized Calcium 4.5 L Urine WBC (Auto) Coronavirus (PCR) SARS-CoV-2 IgG Ab 06/07/20 06/07/20 06/07/20 13:41 14:58 14:58 WBC RBC 2.72 L Hgb 9.3 L Hct 27.2 L MCV 100 H MCH 34 H MCHC RDW Lymph % (Auto) Lymph # (Auto) Seg Neutrophils % Seg Neuts % (Manual) Lymphocytes % (Manual) Nucleated RBC % Seg Neutrophils # Seg Neutrophils # Man Lymphocytes # (Manual) D-Dimer ABG pH POC ABG pCO2 POC ABG pO2 ABG pO2 ABG HCO3 ABG O2 Saturation ABG Base Excess ABG Hemoglobin ABG Oxyhemoglobin ABG Sodium ABG Potassium ABG Chloride ABG Glucose Oxyhemoglobin Sodium Potassium Chloride 93.5 L Carbon Dioxide 39 H BUN 22 H Creatinine 0.4 L Glucose 188 H POC Glucose 201 H Lactic Acid Calcium Magnesium Ferritin Total Bilirubin Direct Bilirubin AST 61 H ALT 273 H Alkaline Phosphatase Lactate Dehydrogenase C-Reactive Protein Total Protein 5.9 L Albumin 2.7 L Triglycerides Arterial Blood Glucose Arterial Blood Ionized Calcium Urine WBC (Auto) Coronavirus (PCR) SARS-CoV-2 IgG Ab 06/07/20 06/08/20 06/08/20 23:18 05:31 12:07 WBC RBC Hgb Hct MCV MCH MCHC RDW Lymph % (Auto) Lymph # (Auto) Seg Neutrophils % Seg Neuts % (Manual) Lymphocytes % (Manual) Nucleated RBC % Seg Neutrophils # Seg Neutrophils # Man Lymphocytes # (Manual) D-Dimer ABG pH POC ABG pCO2 POC ABG pO2 ABG pO2 ABG HCO3 ABG O2 Saturation ABG Base Excess ABG Hemoglobin ABG Oxyhemoglobin ABG Sodium ABG Potassium ABG Chloride ABG Glucose Oxyhemoglobin Sodium Potassium Chloride Carbon Dioxide BUN Creatinine Glucose POC Glucose 214 H 129 H 179 H Lactic Acid Calcium Magnesium Ferritin Total Bilirubin Direct Bilirubin AST ALT Alkaline Phosphatase Lactate Dehydrogenase C-Reactive Protein Total Protein Albumin Triglycerides Arterial Blood Glucose Arterial Blood Ionized Calcium Urine WBC (Auto) Coronavirus (PCR) SARS-CoV-2 IgG Ab 06/08/20 06/08/20 06/09/20 18:18 23:35 05:42 WBC RBC Hgb Hct MCV MCH MCHC RDW Lymph % (Auto) Lymph # (Auto) Seg Neutrophils % Seg Neuts % (Manual) Lymphocytes % (Manual) Nucleated RBC % Seg Neutrophils # Seg Neutrophils # Man Lymphocytes # (Manual) D-Dimer ABG pH POC ABG pCO2 POC ABG pO2 ABG pO2 ABG HCO3 ABG O2 Saturation ABG Base Excess ABG Hemoglobin ABG Oxyhemoglobin ABG Sodium ABG Potassium ABG Chloride ABG Glucose Oxyhemoglobin Sodium Potassium Chloride Carbon Dioxide BUN Creatinine Glucose POC Glucose 172 H 177 H 137 H Lactic Acid Calcium Magnesium Ferritin Total Bilirubin Direct Bilirubin AST ALT Alkaline Phosphatase Lactate Dehydrogenase C-Reactive Protein Total Protein Albumin Triglycerides Arterial Blood Glucose Arterial Blood Ionized Calcium Urine WBC (Auto) Coronavirus (PCR) SARS-CoV-2 IgG Ab 06/09/20 06/09/20 06/09/20 06:20 07:55 07:55 WBC 12.4 H RBC 3.26 L Hgb 11.1 L Hct 33.4 L D MCV 102 H MCH 34 H MCHC RDW Lymph % (Auto) Lymph # (Auto) Seg Neutrophils % Seg Neuts % (Manual) Lymphocytes % (Manual) Nucleated RBC % Seg Neutrophils # Seg Neutrophils # Man Lymphocytes # (Manual) D-Dimer ABG pH 7.466 H POC ABG pCO2 50.7 H POC ABG pO2 53.0 L ABG pO2 ABG HCO3 ABG O2 Saturation ABG Base Excess ABG Hemoglobin ABG Oxyhemoglobin ABG Sodium ABG Potassium 2.9 L ABG Chloride 93.0 L ABG Glucose 138 H Oxyhemoglobin Sodium Potassium 3.0 L Chloride 92.3 L Carbon Dioxide 37 H BUN 21 H Creatinine 0.6 L Glucose 120 H POC Glucose Lactic Acid Calcium Magnesium Ferritin Total Bilirubin Direct Bilirubin AST ALT Alkaline Phosphatase Lactate Dehydrogenase C-Reactive Protein Total Protein Albumin Triglycerides Arterial Blood Glucose 138 H Arterial Blood Ionized Calcium 4.5 L Urine WBC (Auto) Coronavirus (PCR) SARS-CoV-2 IgG Ab 06/09/20 06/09/20 06/10/20 11:22 18:32 04:46 WBC RBC Hgb Hct MCV MCH MCHC RDW Lymph % (Auto) Lymph # (Auto) Seg Neutrophils % Seg Neuts % (Manual) Lymphocytes % (Manual) Nucleated RBC % Seg Neutrophils # Seg Neutrophils # Man Lymphocytes # (Manual) D-Dimer ABG pH 7.501 H POC ABG pCO2 POC ABG pO2 126.5 H ABG pO2 ABG HCO3 ABG O2 Saturation ABG Base Excess ABG Hemoglobin 10.3 L ABG Oxyhemoglobin ABG Sodium ABG Potassium ABG Chloride ABG Glucose 220 H Oxyhemoglobin Sodium Potassium Chloride Carbon Dioxide BUN Creatinine Glucose POC Glucose 117 H 121 H Lactic Acid Calcium Magnesium Ferritin Total Bilirubin Direct Bilirubin AST ALT Alkaline Phosphatase Lactate Dehydrogenase C-Reactive Protein Total Protein Albumin Triglycerides Arterial Blood Glucose 220 H Arterial Blood Ionized Calcium Urine WBC (Auto) Coronavirus (PCR) SARS-CoV-2 IgG Ab 06/10/20 06/10/20 06/10/20 05:30 09:38 12:03 WBC RBC Hgb Hct MCV MCH MCHC RDW Lymph % (Auto) Lymph # (Auto) Seg Neutrophils % Seg Neuts % (Manual) Lymphocytes % (Manual) Nucleated RBC % Seg Neutrophils # Seg Neutrophils # Man Lymphocytes # (Manual) D-Dimer ABG pH POC ABG pCO2 POC ABG pO2 ABG pO2 ABG HCO3 ABG O2 Saturation ABG Base Excess ABG Hemoglobin ABG Oxyhemoglobin ABG Sodium ABG Potassium ABG Chloride ABG Glucose Oxyhemoglobin Sodium Potassium Chloride Carbon Dioxide BUN Creatinine Glucose POC Glucose 181 H 204 H Lactic Acid Calcium Magnesium Ferritin Total Bilirubin Direct Bilirubin AST ALT Alkaline Phosphatase Lactate Dehydrogenase C-Reactive Protein Total Protein Albumin Triglycerides 738 H Arterial Blood Glucose Arterial Blood Ionized Calcium Urine WBC (Auto) Coronavirus (PCR) SARS-CoV-2 IgG Ab 06/10/20 06/11/20 06/11/20 17:17 00:04 04:38 WBC RBC Hgb Hct MCV MCH MCHC RDW Lymph % (Auto) Lymph # (Auto) Seg Neutrophils % Seg Neuts % (Manual) Lymphocytes % (Manual) Nucleated RBC % Seg Neutrophils # Seg Neutrophils # Man Lymphocytes # (Manual) D-Dimer ABG pH 7.479 H POC ABG pCO2 POC ABG pO2 76.7 L ABG pO2 ABG HCO3 ABG O2 Saturation ABG Base Excess ABG Hemoglobin 9.8 L ABG Oxyhemoglobin ABG Sodium 135.8 L ABG Potassium ABG Chloride ABG Glucose 238 H Oxyhemoglobin Sodium Potassium Chloride Carbon Dioxide BUN Creatinine Glucose POC Glucose 156 H 178 H Lactic Acid Calcium Magnesium Ferritin Total Bilirubin Direct Bilirubin AST ALT Alkaline Phosphatase Lactate Dehydrogenase C-Reactive Protein Total Protein Albumin Triglycerides Arterial Blood Glucose 238 H Arterial Blood Ionized Calcium Urine WBC (Auto) Coronavirus (PCR) SARS-CoV-2 IgG Ab 06/11/20 06/11/20 06/11/20 05:21 06:52 11:50 WBC RBC Hgb Hct MCV MCH MCHC RDW Lymph % (Auto) Lymph # (Auto) Seg Neutrophils % Seg Neuts % (Manual) Lymphocytes % (Manual) Nucleated RBC % Seg Neutrophils # Seg Neutrophils # Man Lymphocytes # (Manual) D-Dimer ABG pH POC ABG pCO2 POC ABG pO2 ABG pO2 ABG HCO3 ABG O2 Saturation ABG Base Excess ABG Hemoglobin ABG Oxyhemoglobin ABG Sodium ABG Potassium ABG Chloride ABG Glucose Oxyhemoglobin Sodium Potassium Chloride Carbon Dioxide BUN Creatinine Glucose POC Glucose 215 H 187 H Lactic Acid Calcium Magnesium Ferritin Total Bilirubin Direct Bilirubin AST ALT Alkaline Phosphatase Lactate Dehydrogenase C-Reactive Protein Total Protein Albumin Triglycerides 331 H Arterial Blood Glucose Arterial Blood Ionized Calcium Urine WBC (Auto) Coronavirus (PCR) SARS-CoV-2 IgG Ab 06/11/20 06/11/20 06/12/20 17:49 23:35 04:52 WBC RBC Hgb Hct MCV MCH MCHC RDW Lymph % (Auto) Lymph # (Auto) Seg Neutrophils % Seg Neuts % (Manual) Lymphocytes % (Manual) Nucleated RBC % Seg Neutrophils # Seg Neutrophils # Man Lymphocytes # (Manual) D-Dimer ABG pH 7.486 H POC ABG pCO2 POC ABG pO2 ABG pO2 ABG HCO3 ABG O2 Saturation ABG Base Excess ABG Hemoglobin 9.4 L ABG Oxyhemoglobin ABG Sodium ABG Potassium 3.2 L ABG Chloride ABG Glucose 209 H Oxyhemoglobin Sodium Potassium Chloride Carbon Dioxide BUN Creatinine Glucose POC Glucose 211 H 200 H Lactic Acid Calcium Magnesium Ferritin Total Bilirubin Direct Bilirubin AST ALT Alkaline Phosphatase Lactate Dehydrogenase C-Reactive Protein Total Protein Albumin Triglycerides Arterial Blood Glucose 209 H Arterial Blood Ionized Calcium Urine WBC (Auto) Coronavirus (PCR) SARS-CoV-2 IgG Ab 06/12/20 06/12/20 06/12/20 05:13 11:47 18:33 WBC RBC Hgb Hct MCV MCH MCHC RDW Lymph % (Auto) Lymph # (Auto) Seg Neutrophils % Seg Neuts % (Manual) Lymphocytes % (Manual) Nucleated RBC % Seg Neutrophils # Seg Neutrophils # Man Lymphocytes # (Manual) D-Dimer ABG pH POC ABG pCO2 POC ABG pO2 ABG pO2 ABG HCO3 ABG O2 Saturation ABG Base Excess ABG Hemoglobin ABG Oxyhemoglobin ABG Sodium ABG Potassium ABG Chloride ABG Glucose Oxyhemoglobin Sodium Potassium Chloride Carbon Dioxide BUN Creatinine Glucose POC Glucose 174 H 214 H 194 H Lactic Acid Calcium Magnesium Ferritin Total Bilirubin Direct Bilirubin AST ALT Alkaline Phosphatase Lactate Dehydrogenase C-Reactive Protein Total Protein Albumin Triglycerides Arterial Blood Glucose Arterial Blood Ionized Calcium Urine WBC (Auto) Coronavirus (PCR) SARS-CoV-2 IgG Ab 06/12/20 06/13/20 06/13/20 23:49 05:41 12:30 WBC RBC Hgb Hct MCV MCH MCHC RDW Lymph % (Auto) Lymph # (Auto) Seg Neutrophils % Seg Neuts % (Manual) Lymphocytes % (Manual) Nucleated RBC % Seg Neutrophils # Seg Neutrophils # Man Lymphocytes # (Manual) D-Dimer ABG pH POC ABG pCO2 POC ABG pO2 ABG pO2 ABG HCO3 ABG O2 Saturation ABG Base Excess ABG Hemoglobin ABG Oxyhemoglobin ABG Sodium ABG Potassium ABG Chloride ABG Glucose Oxyhemoglobin Sodium Potassium Chloride Carbon Dioxide BUN Creatinine Glucose POC Glucose 160 H 150 H 181 H Lactic Acid Calcium Magnesium Ferritin Total Bilirubin Direct Bilirubin AST ALT Alkaline Phosphatase Lactate Dehydrogenase C-Reactive Protein Total Protein Albumin Triglycerides Arterial Blood Glucose Arterial Blood Ionized Calcium Urine WBC (Auto) Coronavirus (PCR) SARS-CoV-2 IgG Ab 06/13/20 06/13/20 06/13/20 14:14 17:48 23:27 WBC 12.8 H RBC 2.33 L Hgb 8.0 L Hct 23.3 L MCV 100 H MCH 34 H MCHC RDW 15.7 H Lymph % (Auto) Lymph # (Auto) Seg Neutrophils % Seg Neuts % (Manual) 85.0 H Lymphocytes % (Manual) 10.0 L Nucleated RBC % Seg Neutrophils # Seg Neutrophils # Man 10.9 H Lymphocytes # (Manual) D-Dimer ABG pH POC ABG pCO2 POC ABG pO2 ABG pO2 ABG HCO3 ABG O2 Saturation ABG Base Excess ABG Hemoglobin ABG Oxyhemoglobin ABG Sodium ABG Potassium ABG Chloride ABG Glucose Oxyhemoglobin Sodium Potassium Chloride Carbon Dioxide BUN Creatinine Glucose POC Glucose 173 H 154 H Lactic Acid Calcium Magnesium Ferritin Total Bilirubin Direct Bilirubin AST ALT Alkaline Phosphatase Lactate Dehydrogenase C-Reactive Protein Total Protein Albumin Triglycerides Arterial Blood Glucose Arterial Blood Ionized Calcium Urine WBC (Auto) Coronavirus (PCR) SARS-CoV-2 IgG Ab 06/14/20 06/14/20 06/14/20 03:58 05:21 07:15 WBC 26.2 H RBC 2.97 L Hgb 9.7 L Hct 29.9 L D MCV 101 H MCH 33 H MCHC RDW 15.3 H Lymph % (Auto) Lymph # (Auto) Seg Neutrophils % Seg Neuts % (Manual) Lymphocytes % (Manual) Nucleated RBC % Seg Neutrophils # Seg Neutrophils # Man Lymphocytes # (Manual) D-Dimer ABG pH POC ABG pCO2 51.5 H POC ABG pO2 70.0 L ABG pO2 ABG HCO3 ABG O2 Saturation ABG Base Excess ABG Hemoglobin 10.1 L ABG Oxyhemoglobin ABG Sodium 131.5 L ABG Potassium 3.1 L ABG Chloride 93.0 L ABG Glucose 188 H Oxyhemoglobin Sodium Potassium Chloride Carbon Dioxide BUN Creatinine Glucose POC Glucose 147 H Lactic Acid Calcium Magnesium Ferritin Total Bilirubin Direct Bilirubin AST ALT Alkaline Phosphatase Lactate Dehydrogenase C-Reactive Protein Total Protein Albumin Triglycerides Arterial Blood Glucose 188 H Arterial Blood Ionized Calcium Urine WBC (Auto) Coronavirus (PCR) SARS-CoV-2 IgG Ab 06/14/20 07:15 WBC RBC Hgb Hct MCV MCH MCHC RDW Lymph % (Auto) Lymph # (Auto) Seg Neutrophils % Seg Neuts % (Manual) Lymphocytes % (Manual) Nucleated RBC % Seg Neutrophils # Seg Neutrophils # Man Lymphocytes # (Manual) D-Dimer ABG pH POC ABG pCO2 POC ABG pO2 ABG pO2 ABG HCO3 ABG O2 Saturation ABG Base Excess ABG Hemoglobin ABG Oxyhemoglobin ABG Sodium ABG Potassium ABG Chloride ABG Glucose Oxyhemoglobin Sodium 135 L Potassium 3.5 L Chloride 90.4 L Carbon Dioxide 38 H BUN Creatinine 0.5 L Glucose 190 H POC Glucose Lactic Acid Calcium Magnesium Ferritin Total Bilirubin Direct Bilirubin AST ALT 81 H Alkaline Phosphatase Lactate Dehydrogenase C-Reactive Protein Total Protein Albumin 2.9 L Triglycerides Arterial Blood Glucose Arterial Blood Ionized Calcium Urine WBC (Auto) Coronavirus (PCR) SARS-CoV-2 IgG Ab Chest x-ray: pending Allied health notes reviewed: nursing
[2020-06-14 11:22] LABS: Band Neutrophils # (Manual) 2.9 K/mm3; Basophils % (Manual) 0 % (0.0-1.8); Eosinophils % (Manual) 0 % (0.0-4.3); Total Cells Counted 100
[2020-06-14 11:23] LABS: Anisocytosis 1+; Hypochromasia 1+; Macrocytosis 1+; Platelet Clumps Rare; Platelet Estimate Consistent w Auto; Stomatocytes Few
[2020-06-14] MEDS: ACETAMINOPHEN 325 MG/10.15 ML ORAL LIQD UNIT DOSE FEEDTUBE PRN ×2 (11:46→19:02)
--- NOTE | 2020-06-14 14:45 | XRay Report ---
CHEST - 1 VIEW INDICATION: aspiration; fevers COMPARISON: 06/09/2020 FINDINGS: Support devices: Stable support device positioning. Heart: Stable cardiomediastinal silhouette. Lungs/pleura: Stable diffuse bilateral lung opacities. No pleural effusion or pneumothorax. Additional findings: None. IMPRESSION: Unchanged exam. Signer Name: Bautista Jennings Jr, MD Signed: 06/14/2020 2:41 PM Workstation Name: [id number]
[2020-06-14] MEDS: NORepinephrine/NS 4 MG-250 ML 4 MG/250 ML BAG IV SCH (19:02)
[2020-06-14] MEDS: IPRATROPIUM/ALBUTEROL SULFATE 3 ML AMPUL.NEB IH SCH (20:30)
[2020-06-14] MEDS: POLYETHYLENE GLYCOL 3350 17 GM POWDER PO SCH (21:13)
--- NOTE | 2020-06-14 23:17 | Progress Note ---
Assessment and Plan Assessment and Plan Patient intubated -- Acute hypoxemic respiratory failure; Patient intubated and on vent support -- Novel coronavirus infection with Bilateral pneumonia Coronavirus protocol: IV steroid therapy, IV remdesivir, isolation precautions, contact precautions, prone positioning while in bed, pulmonary toilet. consulted ID --Severe sepsis, due to COVID 19 PNA cont to treat for COVID -- Acute kidney injury (SEN) , likely vasomotor nephropathy Resolved, IV fluids, avoid nephrotoxins -- Alcohol dependence; no episodes of withdrawal symptoms Thiamine, folic acid, multivitamin, CIWA protocol. -- Elevated liver function tests Suspected secondary to alcoholic liver disease. Supportive care, alcohol cessation, patient counseled. -- DVT prophylaxis prophylactic AC with lovenox for elevated D-dimer We will closely monitor patient and adjust management as needed Patient has severe Covid pneumonia, severe hypoxia Critically ill very poor prognosis Full CODE STATUS The high probability of a clinically significant, sudden or life threatening deterioration of the [Covid pneumonia, ID, respiratory, liver] system(s) required my full and direct attention, intervention and personal management. The aggregate critical care time was [32] minutes. This time is in addition to time spent performing reported procedures but includes the following: [x] Data Review and interpretation [x] Patient assessment and monitoring of vital signs [x] Documentation [x] Medication orders and management. Subjective Date of service: 06/14/20 Principal diagnosis: Ac hypoxemic resp failure; COVID-19; Severe Sepsis; Shaggy PNA; Alcohol Abuse Interval history: Brief history; 50 YO Male with Obesity, ETOH Dependence presents to ED for evaluation for shortness of breath, generalized weakness, fatigue, malaise, body aches, decreased exercise tolerance over the past 5 days. EMS was notified and upon arrival the patient was found to be in distress with a pulse oximetry of 76% on room air as well as fever to 103 F. In the ER chest x-ray and was found to have bilateral pneumonia. Patient admitted to medical floor and initiated on pneumonia protocol as well as COVID-19 protocol. Patient severe Covid pneumonia, with persistent severe hypoxemia requiring very high flow oxygen Today on continuous BiPAP, patient is in mild distress, critically ill with very poor prognosis. Patient was on high flow oxygen but could not be maintained above 90 hence patient intubated last night electively 05/17/2020; patient with severe COVID-19 pneumonia, in isolation room Patient is on high flow oxygen, and BiPAP 05/18/20; patient feels slightly better still hypoxic, requiring continuous high flow oxygen and BiPAP Respiratory team trying to wean 05/19/20; patient is severely hypoxemic requiring continuous BiPAP today, complains of generalized weakness Trying to wean off high flow oxygen, patient is in isolation 05/20/2020; patient remains on high flow oxygen/BiPAP/100% nonrebreather. Still is hypoxemic Has sinus tachycardia patient in mild distress Wean off high flow oxygen as tolerated, pulmonary critical following 05/21/20; patient is critically ill, on continuous BiPAP remains hypoxemic in mild distress Patient has severe Covid Pneumonia with persistent hypoxemia and poor prognosis 05/22/2020 Patient was intubated last night because of persistent hypoxemia 05/23/20 On Vent 05/24 to 06/14 On Vent Weaning in progress Objective - Exam Narrative Exam: Intubated - Constitutional Vitals: Vital Signs - 12hr 06/14/20 06/14/20 06/14/20 11:40 12:00 12:31 Temperature 101.3 F H Pulse Rate 107 H 124 H Pulse Rate [ Bilateral Throughout] Pulse Rate [ From Monitor] Respiratory 24 Rate Respiratory Rate [Bilateral Throughout] Blood Pressure 85/55 95/55 O2 Sat by Pulse 94 92 Oximetry 06/14/20 06/14/20 06/14/20 13:00 14:00 15:00 Temperature Pulse Rate 110 H 111 H 108 H Pulse Rate [ Bilateral Throughout] Pulse Rate [ From Monitor] Respiratory 19 18 17 Rate Respiratory Rate [Bilateral Throughout] Blood Pressure 74/43 77/40 90/49 O2 Sat by Pulse 88 93 94 Oximetry 06/14/20 06/14/20 06/14/20 15:59 16:00 16:32 Temperature 101.2 F H 101.2 F H Pulse Rate 108 H 105 H Pulse Rate [ Bilateral Throughout] Pulse Rate [ From Monitor] Respiratory 25 H Rate Respiratory Rate [Bilateral Throughout] Blood Pressure 102/60 102/60 O2 Sat by Pulse 95 87 Oximetry 06/14/20 06/14/20 06/14/20 17:00 18:00 18:30 Temperature Pulse Rate 111 H 129 H 134 H Pulse Rate [ Bilateral Throughout] Pulse Rate [ From Monitor] Respiratory 25 H 29 H 31 H Rate Respiratory Rate [Bilateral Throughout] Blood Pressure 110/63 136/85 104/68 O2 Sat by Pulse 86 94 87 Oximetry 06/14/20 06/14/20 06/14/20 18:45 19:00 19:15 Temperature Pulse Rate 137 H 134 H 124 H Pulse Rate [ Bilateral Throughout] Pulse Rate [ From Monitor] Respiratory 32 H 28 H 22 Rate Respiratory Rate [Bilateral Throughout] Blood Pressure 104/77 104/77 86/50 O2 Sat by Pulse 90 91 92 Oximetry 06/14/20 06/14/20 06/14/20 19:30 19:45 20:00 Temperature 98.8 F Pulse Rate 122 H 124 H 125 H Pulse Rate [ Bilateral Throughout] Pulse Rate [ 130 H From Monitor] Respiratory 22 30 H 27 H Rate Respiratory Rate [Bilateral Throughout] Blood Pressure 80/56 111/65 102/77 O2 Sat by Pulse 96 97 97 Oximetry 06/14/20 06/14/20 06/14/20 20:15 20:30 20:45 Temperature Pulse Rate 129 H 129 H 136 H Pulse Rate [ Bilateral Throughout] Pulse Rate [ From Monitor] Respiratory 29 H 29 H 28 H Rate Respiratory Rate [Bilateral Throughout] Blood Pressure 128/80 128/81 124/80 O2 Sat by Pulse 96 99 99 Oximetry 06/14/20 06/14/20 06/14/20 21:00 21:09 21:15 Temperature Pulse Rate 132 H 123 H Pulse Rate [ 133 H Bilateral Throughout] Pulse Rate [ From Monitor] Respiratory 31 H 24 Rate Respiratory 30 H Rate [Bilateral Throughout] Blood Pressure 132/77 128/68 O2 Sat by Pulse 96 97 Oximetry 06/14/20 06/14/20 06/14/20 21:30 21:46 22:00 Temperature Pulse Rate 125 H 147 H 139 H Pulse Rate [ Bilateral Throughout] Pulse Rate [ From Monitor] Respiratory 21 25 H 24 Rate Respiratory Rate [Bilateral Throughout] Blood Pressure 121/61 110/63 126/60 O2 Sat by Pulse 96 95 92 Oximetry 06/14/20 06/14/20 06/14/20 22:15 22:30 22:45 Temperature Pulse Rate 134 H 127 H 123 H Pulse Rate [ Bilateral Throughout] Pulse Rate [ From Monitor] Respiratory 25 H 24 20 Rate Respiratory Rate [Bilateral Throughout] Blood Pressure 132/65 126/60 107/58 O2 Sat by Pulse 95 94 94 Oximetry General appearance: Present: no acute distress, well-nourished - EENT Eyes: PERRL, EOM intact ENT: hearing intact, clear oral mucosa Ears: bilateral: normal - Neck Neck: supple, normal ROM - Respiratory Respiratory effort: normal Respiratory: bilateral: CTA, rhonchi - Breasts Breasts: normal - Cardiovascular Heart rate: 78 Rhythm: regular Heart Sounds: Present: S1 & S2. Absent: gallop, rub Extremities: pulses intact, No edema, normal color, Full ROM - Gastrointestinal General gastrointestinal: Present: soft, non-tender, non-distended, normal bowel sounds - Genitourinary Male genitourinary: normal - Integumentary Integumentary: clear, warm, dry - Musculoskeletal Musculoskeletal: generalized weakness - Psychiatric Psychiatric: other (Intubated) - Labs CBC & Chem 7: 06/15/20 Unknown 06/15/20 04:00 Labs: Abnormal lab results 06/13/20 06/14/20 06/14/20 Range/Units 23:27 03:58 05:21 WBC (4.5-11.0) K/mm3 RBC (3.65-5.03) M/mm3 Hgb (11.8-15.2) gm/dl Hct (35.5-45.6) % MCV (84-94) fl MCH (28-32) pg RDW (13.2-15.2) % Seg Neuts % (Manual) (40.0-70.0) % Lymphocytes % (Manual) (13.4-35.0) % Nucleated RBC % (0.0-0.9) % Seg Neutrophils # Man (1.8-7.7) K/mm3 Monocytes # (Manual) (0.0-0.8) K/mm3 POC ABG pCO2 51.5 H (32.0-48.0) mmHg POC ABG pO2 70.0 L (83-108) mmHg ABG Hemoglobin 10.1 L (12.0-17.5) ABG Sodium 131.5 L (136.0-145.0) mmol/L ABG Potassium 3.1 L (3.40-4.50) mmol/L ABG Chloride 93.0 L (98-107) mmol/L ABG Glucose 188 H (65-95) mg/dL Sodium (137-145) mmol/L Potassium (3.6-5.0) mmol/L Chloride (98-107) mmol/L Carbon Dioxide (22-30) mmol/L Creatinine (0.8-1.3) mg/dL Glucose (75-100) mg/dL POC Glucose 154 H 147 H (70-105) mg/dL Ferritin (30.0-300.0) ng/mL ALT (7-56) units/L Albumin (3.9-5) g/dL Arterial Blood Glucose 188 H (65-95) mg/dL 06/14/20 06/14/20 06/14/20 Range/Units 07:15 07:15 11:30 WBC 26.2 H (4.5-11.0) K/mm3 RBC 2.97 L (3.65-5.03) M/mm3 Hgb 9.7 L (11.8-15.2) gm/dl Hct 29.9 L D (35.5-45.6) % MCV 101 H (84-94) fl MCH 33 H (28-32) pg RDW 15.3 H (13.2-15.2) % Seg Neuts % (Manual) 79.0 H (40.0-70.0) % Lymphocytes % (Manual) 5.0 L (13.4-35.0) % Nucleated RBC % 3.0 H (0.0-0.9) % Seg Neutrophils # Man 20.7 H (1.8-7.7) K/mm3 Monocytes # (Manual) 1.3 H (0.0-0.8) K/mm3 POC ABG pCO2 (32.0-48.0) mmHg POC ABG pO2 (83-108) mmHg ABG Hemoglobin (12.0-17.5) ABG Sodium (136.0-145.0) mmol/L ABG Potassium (3.40-4.50) mmol/L ABG Chloride (98-107) mmol/L ABG Glucose (65-95) mg/dL Sodium 135 L (137-145) mmol/L Potassium 3.5 L (3.6-5.0) mmol/L Chloride 90.4 L (98-107) mmol/L Carbon Dioxide 38 H (22-30) mmol/L Creatinine 0.5 L (0.8-1.3) mg/dL Glucose 190 H (75-100) mg/dL POC Glucose 176 H (70-105) mg/dL Ferritin (30.0-300.0) ng/mL ALT 81 H (7-56) units/L Albumin 2.9 L (3.9-5) g/dL Arterial Blood Glucose (65-95) mg/dL 06/14/20 Range/Units 11:50 WBC (4.5-11.0) K/mm3 RBC (3.65-5.03) M/mm3 Hgb (11.8-15.2) gm/dl Hct (35.5-45.6) % MCV (84-94) fl MCH (28-32) pg RDW (13.2-15.2) % Seg Neuts % (Manual) (40.0-70.0) % Lymphocytes % (Manual) (13.4-35.0) % Nucleated RBC % (0.0-0.9) % Seg Neutrophils # Man (1.8-7.7) K/mm3 Monocytes # (Manual) (0.0-0.8) K/mm3 POC ABG pCO2 (32.0-48.0) mmHg POC ABG pO2 (83-108) mmHg ABG Hemoglobin (12.0-17.5) ABG Sodium (136.0-145.0) mmol/L ABG Potassium (3.40-4.50) mmol/L ABG Chloride (98-107) mmol/L ABG Glucose (65-95) mg/dL Sodium (137-145) mmol/L Potassium (3.6-5.0) mmol/L Chloride (98-107) mmol/L Carbon Dioxide (22-30) mmol/L Creatinine (0.8-1.3) mg/dL Glucose (75-100) mg/dL POC Glucose (70-105) mg/dL Ferritin 1496.0 H (30.0-300.0) ng/mL ALT (7-56) units/L Albumin (3.9-5) g/dL Arterial Blood Glucose (65-95) mg/dL
[2020-06-15] MEDS: INSULIN LISPRO 100 UNIT/ML VIAL 3 mL SUB-Q SCH ×4 (00:15→17:31)
[2020-06-15] MEDS: fentaNYL DRIP Premix 2,000 MCG/100 ML BAG IV SCH ×6 (00:15→22:02)
[2020-06-15 04:37] LABS: Hematocrit 25.8 % (35.5-45.6); Hemoglobin 8.9 gm/dl (11.8-15.2); Mean Corpuscular HGB Conc 35 % (32-34); Mean Corpuscular Volume 101 fl (84-94); Platelet Count 263 K/mm3 (140-440); Red Blood Count 2.57 M/mm3 (3.65-5.03)
[2020-06-15 04:52] LABS: Alanine Aminotransferase 77 units/L (7-56); Albumin 2.6 g/dL (3.9-5); Blood Urea Nitrogen 16 mg/dL (9-20); Calcium 9.3 mg/dL (8.4-10.2); Hemolysis Index 14
[2020-06-15 05:09] LABS: BUN/Creatinine Ratio 40
[2020-06-15] MEDS: methylPREDNISolone Sod Succinate 40 MG/1 ML INJ IV SCH ×2 (05:32→17:53)
[2020-06-15] MEDS: PROPOFOL 500 MG/50 ML IV SCH ×8 (05:33→22:01)
[2020-06-15 06:10] LABS: Anisocytosis 1+; Basophils % (Manual) 0 % (0.0-1.8); Eosinophils % (Manual) 0 % (0.0-4.3); Hypochromasia 1+; Macrocytosis 1+; Total Cells Counted 100
[2020-06-15 06:11] LABS: Platelet Estimate Consistent w Auto; Schistocytes Few
[2020-06-15] MEDS: IPRATROPIUM/ALBUTEROL SULFATE 3 ML AMPUL.NEB IH SCH ×2 (08:08→20:12)
[2020-06-15] MEDS: SENNOSIDES 8.6 MG TAB PO SCH ×2 (10:05→21:51)
[2020-06-15] MEDS: FAMOTIDINE 20 MG TAB PO SCH ×2 (10:05→21:51)
[2020-06-15] MEDS: FOLIC ACID 1 MG TAB PO SCH (10:05)
[2020-06-15] MEDS: DOCUSATE SODIUM 100 MG/10 ML ORAL LIQD PO SCH ×2 (10:05→21:51)
[2020-06-15] MEDS: ENOXAPARIN 120 MG/0.8 ML INJ SUB-Q SCH ×2 (10:06→21:50)
[2020-06-15] MEDS: QUEtiapine 100 MG TAB PO SCH ×2 (10:06→21:51)
[2020-06-15] MEDS: NORepinephrine/NS 4 MG-250 ML 4 MG/250 ML BAG IV SCH ×3 (11:45→22:51)
--- NOTE | 2020-06-15 12:55 | Progress Note ---
Assessment and Plan Acute hypoxemic respiratory failure due to COVID-19 Severe Sepsis Bilateral pneumonia Acute kidney injury (SEN) with acute tubular necrosis (ATN) Alcohol dependence Elevated liver function tests - increased peep to 16 - continue to wean supplemental oxygen for target O2 sat's > 92% acutely - continue to wean Levophed for target MAP > 65 mmHg (@ 14 sergio's/min) - will likely need tracheostomy placement - continue care as below otherwise; - ETT day # 25; he will need a tracheostomy once numbers better - continue Daily SAT and SBT assessment as tolerated - VAP bundle addressed - continue lung protective strategies - continue bronchodilators with pulmonary hygiene per RT - wean per pulmonary driven protocols otherwise - accuchecks with glycemic control per SSI (While critically ill target blood glucose of 140-180 mg/dL; avoid hypoglycemia) - sedation prn for target RASS -1 to -2 - continue enteral nutritional support at goal rate as tolerated - continue airborne and contact isolation - follow repeat COVID-19 testing - continue Zinc & Vit C supplementaion - continue systemic steroids for Asthma / severe COVID infection - Prone positioning as tolerated - continue empiric full dose anticoagulation re: elevated d-dimers / hypercoagulable state - NOT a candidate for COVID convalescent plasma - continue systemic steroids X >/= 10 days - complete remdesivir dosing (total 5 days) - Monitor liver function test on Remdesivir - trend inflammatory markers - ferritin, Ddimer, CRP, LDH; to aid clinical decision making - empiric AB's coverage per ID rec's otherwise - accuchecks with glycemic control per SSI (While critically ill target blood glucose of 140-180 mg/dL; avoid hypoglycemia) - avoid nephrotoxins, renally dose all medications - continue to avoid benzodiazepine's, reduce the possibility of delirium - continue wound care per RN / WCN - prn analgesia per CPOT score - Maintenance of sleep-wake cycle, avoid delirium - continue to avoid benzodiazepine's, reduce the possibility of delirium - aspiration precautions - G.I. & VTE prophylaxis - PT/OT/ROM exercises - continue mobility protocols for pressure ulcer prophylaxis - Monitor hemodynamics closely - continue other care per attending / other consultants - discharge planning ongoing concurrently .... Re-evaluate in am & prn CONDITION: CRITICAL PROGNOSIS: GUARDED CODE STATUS: FULL CODE The high probability of a clinically significant, sudden or life-threatening deterioration of the [respiratory, cardiovascular, hematologic & neurologic] sy stem(s) required my full and direct attention, intervention and personal management. The aggregate critical care time was [33] minutes without overlap. Time includes spent on; [x] Data Review and interpretation [x] Patient assessment and monitoring of vital signs [x] Documentation [x] Medication orders and management Subjective Date of service: 06/15/20 Principal diagnosis: Ac hypoxemic resp failure; COVID-19; Severe Sepsis; Shaggy PNA; Alcohol Abuse Interval history: Patient is seen today for: Acute hypoxemic respiratory failure due to COVID-19; Severe Sepsis; Bilateral pneumonia; Alcohol dependence; Elevated liver function tests Seen and examined at bedside; 24hour events reviewed; nursing and respiratory care staff consulted; no adverse overnight events reported to me; resting in bed; remains on MVS; FiO2 requirements again increasing; no emesis or overt aspiration; afebrile Objective Vital Signs - 12hr 06/15/20 06/15/20 06/15/20 01:00 01:15 01:30 Temperature Pulse Rate 120 H 120 H 117 H Pulse Rate [ Bilateral Throughout] Pulse Rate [ From Monitor] Respiratory 20 22 20 Rate Respiratory Rate [Bilateral Throughout] Blood Pressure 139/66 111/58 109/68 O2 Sat by Pulse 95 94 96 Oximetry 06/15/20 06/15/20 06/15/20 01:45 02:00 02:15 Temperature Pulse Rate 118 H 116 H 121 H Pulse Rate [ Bilateral Throughout] Pulse Rate [ From Monitor] Respiratory 20 19 26 H Rate Respiratory Rate [Bilateral Throughout] Blood Pressure 104/66 114/68 115/58 O2 Sat by Pulse 96 94 92 Oximetry 06/15/20 06/15/20 06/15/20 02:30 02:45 03:00 Temperature Pulse Rate 120 H 127 H 120 H Pulse Rate [ Bilateral Throughout] Pulse Rate [ From Monitor] Respiratory 22 29 H 18 Rate Respiratory Rate [Bilateral Throughout] Blood Pressure 113/77 124/76 117/67 O2 Sat by Pulse 95 94 96 Oximetry 06/15/20 06/15/20 06/15/20 03:14 03:15 03:30 Temperature 99.3 F Pulse Rate 118 H 120 H Pulse Rate [ Bilateral Throughout] Pulse Rate [ From Monitor] Respiratory 18 18 Rate Respiratory Rate [Bilateral Throughout] Blood Pressure 103/59 113/61 O2 Sat by Pulse 96 97 Oximetry 06/15/20 06/15/20 06/15/20 03:45 04:00 04:15 Temperature Pulse Rate 122 H 121 H 117 H Pulse Rate [ Bilateral Throughout] Pulse Rate [ 123 H From Monitor] Respiratory 23 33 H 28 H Rate Respiratory Rate [Bilateral Throughout] Blood Pressure 121/71 121/71 123/81 O2 Sat by Pulse 99 85 87 Oximetry 06/15/20 06/15/20 06/15/20 04:30 04:45 05:00 Temperature Pulse Rate 120 H 123 H 119 H Pulse Rate [ Bilateral Throughout] Pulse Rate [ From Monitor] Respiratory 36 H 25 H 36 H Rate Respiratory Rate [Bilateral Throughout] Blood Pressure 123/81 128/76 128/76 O2 Sat by Pulse 86 89 89 Oximetry 06/15/20 06/15/20 06/15/20 05:15 05:30 05:46 Temperature Pulse Rate 128 H 125 H 123 H Pulse Rate [ Bilateral Throughout] Pulse Rate [ From Monitor] Respiratory 30 H 15 22 Rate Respiratory Rate [Bilateral Throughout] Blood Pressure 141/72 141/72 120/69 O2 Sat by Pulse 89 90 87 Oximetry 06/15/20 06/15/20 06/15/20 06:00 06:15 06:30 Temperature Pulse Rate 123 H 128 H 136 H Pulse Rate [ Bilateral Throughout] Pulse Rate [ From Monitor] Respiratory 22 28 H 32 H Rate Respiratory Rate [Bilateral Throughout] Blood Pressure 125/70 110/70 130/56 O2 Sat by Pulse 88 88 88 Oximetry 06/15/20 06/15/20 06/15/20 06:45 07:00 07:15 Temperature Pulse Rate 120 H 118 H 126 H Pulse Rate [ Bilateral Throughout] Pulse Rate [ From Monitor] Respiratory 22 26 H 24 Rate Respiratory Rate [Bilateral Throughout] Blood Pressure 128/59 132/72 139/76 O2 Sat by Pulse 90 89 89 Oximetry 06/15/20 06/15/20 06/15/20 07:30 07:45 07:59 Temperature Pulse Rate 132 H 133 H 124 H Pulse Rate [ 125 H Bilateral Throughout] Pulse Rate [ From Monitor] Respiratory 30 H 33 H 2 L Rate Respiratory 30 H Rate [Bilateral Throughout] Blood Pressure 143/72 142/88 103/64 O2 Sat by Pulse 84 85 89 Oximetry 06/15/20 06/15/20 06/15/20 08:00 08:15 08:30 Temperature 100.8 F H Pulse Rate 130 H 121 H 126 H Pulse Rate [ Bilateral Throughout] Pulse Rate [ 130 H From Monitor] Respiratory 23 29 H 23 Rate Respiratory Rate [Bilateral Throughout] Blood Pressure 124/76 143/81 109/65 O2 Sat by Pulse 84 84 86 Oximetry 06/15/20 06/15/20 06/15/20 08:45 09:00 09:15 Temperature Pulse Rate 122 H 118 H 115 H Pulse Rate [ Bilateral Throughout] Pulse Rate [ From Monitor] Respiratory 20 17 16 Rate Respiratory Rate [Bilateral Throughout] Blood Pressure 111/52 115/49 109/59 O2 Sat by Pulse 88 89 91 Oximetry 06/15/20 06/15/20 06/15/20 09:30 09:45 10:00 Temperature Pulse Rate 115 H 112 H 111 H Pulse Rate [ Bilateral Throughout] Pulse Rate [ From Monitor] Respiratory 15 15 13 Rate Respiratory Rate [Bilateral Throughout] Blood Pressure 101/57 109/59 103/59 O2 Sat by Pulse 89 89 90 Oximetry 06/15/20 06/15/20 06/15/20 10:15 10:30 10:45 Temperature Pulse Rate 107 H 112 H 115 H Pulse Rate [ Bilateral Throughout] Pulse Rate [ From Monitor] Respiratory 12 14 15 Rate Respiratory Rate [Bilateral Throughout] Blood Pressure 108/66 91/57 104/62 O2 Sat by Pulse 93 88 86 Oximetry 06/15/20 06/15/20 06/15/20 11:00 11:15 11:30 Temperature Pulse Rate 117 H 117 H 118 H Pulse Rate [ Bilateral Throughout] Pulse Rate [ From Monitor] Respiratory 13 12 12 Rate Respiratory Rate [Bilateral Throughout] Blood Pressure 91/54 85/49 88/53 O2 Sat by Pulse 88 89 91 Oximetry 06/15/20 06/15/20 11:45 12:00 Temperature Pulse Rate 116 H 121 H Pulse Rate [ Bilateral Throughout] Pulse Rate [ From Monitor] Respiratory 13 11 L Rate Respiratory Rate [Bilateral Throughout] Blood Pressure 92/58 98/56 O2 Sat by Pulse 92 87 Oximetry Constitutional: no acute distress, asleep, other (middle aged obese male with normal respiratory effort at rest on MVS) Eyes: non-icteric ENT: oropharynx moist, other (ETT 24 cm CHILO) Neck: supple, no JVD Effort: normal Ascultation: Bilateral: diminished breath sounds, rhonchi Percussion: Bilateral: not dull Cardiovascular: regular rate and rhythm Gastrointestinal: normoactive bowel sounds, soft, non-tender, non-distended (protuberant) Integumentary: normal Extremities: no cyanosis, no edema, pulses normal, no ischemia or petechiae Neurologic: pupils equal and round, CN II-XII normal, other (unable top assess re: AMS) Psychiatric: other (sedated) CBC and BMP: 06/16/20 04:00 06/16/20 04:00 ABG, PT/INR, D-dimer: ABG ABG pH 7.431 (7.320-7.450) 06/15/20 06:27 POC ABG pCO2 61.0 mmHg (32.0-48.0) H 06/15/20 06:27 ABG pCO2 69.6 mm Hg 06/05/20 12:35 POC ABG pO2 67.9 mmHg (83-108) L 06/15/20 06:27 ABG pO2 127.9 mm Hg (80.0-90.0) H 06/05/20 12:35 POC ABG HCO3 39.7 06/15/20 06:27 ABG O2 Saturation 98.3 % (95.0-99.0) 06/05/20 12:35 PT/INR, D-dimer PT 14.4 Sec. (12.2-14.9) 06/13/20 14:14 INR 1.13 (0.87-1.13) 06/13/20 14:14 D-Dimer 1887.82 ng/mlDDU (0-234) H 05/20/20 08:16 Abnormal lab findings: Abnormal Labs 05/09/20 05/09/20 05/09/20 12:59 12:59 12:59 WBC 11.8 H RBC Hgb Hct MCV 96 H MCH 34 H MCHC 35 H RDW Lymph % (Auto) 6.9 L Lymph # (Auto) 0.8 L Seg Neutrophils % 87.5 H Seg Neuts % (Manual) Lymphocytes % (Manual) Nucleated RBC % Seg Neutrophils # 10.3 H Seg Neutrophils # Man Lymphocytes # (Manual) Monocytes # (Manual) D-Dimer ABG pH POC ABG pCO2 POC ABG pO2 ABG pO2 ABG HCO3 ABG O2 Saturation ABG Base Excess ABG Hemoglobin ABG Oxyhemoglobin ABG Sodium ABG Potassium ABG Chloride ABG Glucose Oxyhemoglobin Sodium 130 L Potassium 3.5 L Chloride 86.4 L Carbon Dioxide BUN 33 H Creatinine 2.3 H Glucose 156 H POC Glucose Lactic Acid Calcium Magnesium Ferritin Total Bilirubin 3.40 H Direct Bilirubin 1.7 H AST 385 H ALT 134 H Alkaline Phosphatase Lactate Dehydrogenase C-Reactive Protein Total Protein Albumin 3.0 L Triglycerides Arterial Blood Glucose Arterial Blood Ionized Calcium Urine WBC (Auto) Coronavirus (PCR) SARS-CoV-2 IgG Ab 05/09/20 05/09/20 05/09/20 12:59 12:59 12:59 WBC RBC Hgb Hct MCV MCH MCHC RDW Lymph % (Auto) Lymph # (Auto) Seg Neutrophils % Seg Neuts % (Manual) Lymphocytes % (Manual) Nucleated RBC % Seg Neutrophils # Seg Neutrophils # Man Lymphocytes # (Manual) Monocytes # (Manual) D-Dimer 3242.51 H ABG pH POC ABG pCO2 POC ABG pO2 ABG pO2 ABG HCO3 ABG O2 Saturation ABG Base Excess ABG Hemoglobin ABG Oxyhemoglobin ABG Sodium ABG Potassium ABG Chloride ABG Glucose Oxyhemoglobin Sodium Potassium Chloride Carbon Dioxide BUN Creatinine Glucose 158 H POC Glucose Lactic Acid 3.50 H* Calcium Magnesium Ferritin Total Bilirubin Direct Bilirubin AST ALT Alkaline Phosphatase Lactate Dehydrogenase 2166 H C-Reactive Protein 39.00 H Total Protein Albumin Triglycerides Arterial Blood Glucose Arterial Blood Ionized Calcium Urine WBC (Auto) Coronavirus (PCR) SARS-CoV-2 IgG Ab 05/09/20 05/09/20 05/09/20 12:59 14:20 14:20 WBC RBC Hgb Hct MCV MCH MCHC RDW Lymph % (Auto) Lymph # (Auto) Seg Neutrophils % Seg Neuts % (Manual) Lymphocytes % (Manual) Nucleated RBC % Seg Neutrophils # Seg Neutrophils # Man Lymphocytes # (Manual) Monocytes # (Manual) D-Dimer 2861.78 H ABG pH POC ABG pCO2 POC ABG pO2 ABG pO2 ABG HCO3 ABG O2 Saturation ABG Base Excess ABG Hemoglobin ABG Oxyhemoglobin ABG Sodium ABG Potassium ABG Chloride ABG Glucose Oxyhemoglobin Sodium Potassium Chloride Carbon Dioxide BUN Creatinine Glucose POC Glucose Lactic Acid 2.20 H* Calcium Magnesium Ferritin 44544.0 H Total Bilirubin Direct Bilirubin AST ALT Alkaline Phosphatase Lactate Dehydrogenase C-Reactive Protein Total Protein Albumin Triglycerides Arterial Blood Glucose Arterial Blood Ionized Calcium Urine WBC (Auto) Coronavirus (PCR) SARS-CoV-2 IgG Ab 05/09/20 05/09/20 05/09/20 14:20 14:20 15:56 WBC RBC Hgb Hct MCV MCH MCHC RDW Lymph % (Auto) Lymph # (Auto) Seg Neutrophils % Seg Neuts % (Manual) Lymphocytes % (Manual) Nucleated RBC % Seg Neutrophils # Seg Neutrophils # Man Lymphocytes # (Manual) Monocytes # (Manual) D-Dimer ABG pH POC ABG pCO2 POC ABG pO2 57.3 L ABG pO2 ABG HCO3 ABG O2 Saturation ABG Base Excess ABG Hemoglobin ABG Oxyhemoglobin 86.3 L ABG Sodium 129.9 L ABG Potassium ABG Chloride ABG Glucose 146 H Oxyhemoglobin Sodium Potassium Chloride Carbon Dioxide BUN Creatinine Glucose 143 H POC Glucose Lactic Acid Calcium Magnesium Ferritin 38861.0 H Total Bilirubin Direct Bilirubin AST ALT Alkaline Phosphatase Lactate Dehydrogenase 1953 H C-Reactive Protein 33.50 H Total Protein Albumin Triglycerides Arterial Blood Glucose 146 H Arterial Blood Ionized Calcium 3.9 L Urine WBC (Auto) Coronavirus (PCR) SARS-CoV-2 IgG Ab 05/10/20 05/10/20 05/10/20 10:32 10:32 18:50 WBC 15.4 H RBC Hgb Hct MCV 97 H MCH 33 H MCHC RDW 13.1 L Lymph % (Auto) Lymph # (Auto) Seg Neutrophils % Seg Neuts % (Manual) 89.0 H Lymphocytes % (Manual) 8.0 L Nucleated RBC % Seg Neutrophils # Seg Neutrophils # Man 13.7 H Lymphocytes # (Manual) Monocytes # (Manual) D-Dimer ABG pH POC ABG pCO2 POC ABG pO2 ABG pO2 ABG HCO3 ABG O2 Saturation ABG Base Excess ABG Hemoglobin ABG Oxyhemoglobin ABG Sodium ABG Potassium ABG Chloride ABG Glucose Oxyhemoglobin Sodium 136 L Potassium Chloride 97.4 L Carbon Dioxide BUN 37 H Creatinine 1.7 H Glucose 209 H POC Glucose Lactic Acid Calcium Magnesium Ferritin > 2000.0 H Total Bilirubin Direct Bilirubin AST ALT Alkaline Phosphatase Lactate Dehydrogenase C-Reactive Protein Total Protein Albumin Triglycerides Arterial Blood Glucose Arterial Blood Ionized Calcium Urine WBC (Auto) Coronavirus (PCR) SARS-CoV-2 IgG Ab 05/10/20 05/10/20 05/10/20 18:50 19:00 Unknown WBC RBC Hgb Hct MCV MCH MCHC RDW Lymph % (Auto) Lymph # (Auto) Seg Neutrophils % Seg Neuts % (Manual) Lymphocytes % (Manual) Nucleated RBC % Seg Neutrophils # Seg Neutrophils # Man Lymphocytes # (Manual) Monocytes # (Manual) D-Dimer > 20932 H ABG pH POC ABG pCO2 POC ABG pO2 ABG pO2 ABG HCO3 ABG O2 Saturation ABG Base Excess ABG Hemoglobin ABG Oxyhemoglobin ABG Sodium ABG Potassium ABG Chloride ABG Glucose Oxyhemoglobin Sodium Potassium Chloride Carbon Dioxide BUN Creatinine Glucose POC Glucose Lactic Acid Calcium Magnesium Ferritin Total Bilirubin Direct Bilirubin AST ALT Alkaline Phosphatase Lactate Dehydrogenase 1879 H C-Reactive Protein 24.80 H Total Protein Albumin Triglycerides Arterial Blood Glucose Arterial Blood Ionized Calcium Urine WBC (Auto) 11.0 H Coronavirus (PCR) SARS-CoV-2 IgG Ab 05/10/20 05/11/20 05/11/20 Unknown 07:30 07:30 WBC RBC Hgb Hct MCV MCH MCHC RDW Lymph % (Auto) Lymph # (Auto) Seg Neutrophils % Seg Neuts % (Manual) Lymphocytes % (Manual) Nucleated RBC % Seg Neutrophils # Seg Neutrophils # Man Lymphocytes # (Manual) Monocytes # (Manual) D-Dimer > 2000 H ABG pH POC ABG pCO2 POC ABG pO2 ABG pO2 ABG HCO3 ABG O2 Saturation ABG Base Excess ABG Hemoglobin ABG Oxyhemoglobin ABG Sodium ABG Potassium ABG Chloride ABG Glucose Oxyhemoglobin Sodium Potassium Chloride 96.3 L Carbon Dioxide BUN 36 H Creatinine Glucose 161 H POC Glucose Lactic Acid Calcium 8.3 L Magnesium Ferritin Total Bilirubin 1.50 H Direct Bilirubin 0.6 H AST 178 H ALT 111 H Alkaline Phosphatase Lactate Dehydrogenase C-Reactive Protein Total Protein Albumin 3.0 L Triglycerides Arterial Blood Glucose Arterial Blood Ionized Calcium Urine WBC (Auto) Coronavirus (PCR) Positive A SARS-CoV-2 IgG Ab 05/11/20 05/11/20 05/11/20 07:30 07:30 07:30 WBC RBC Hgb Hct MCV MCH MCHC RDW Lymph % (Auto) Lymph # (Auto) Seg Neutrophils % Seg Neuts % (Manual) Lymphocytes % (Manual) Nucleated RBC % Seg Neutrophils # Seg Neutrophils # Man Lymphocytes # (Manual) Monocytes # (Manual) D-Dimer ABG pH POC ABG pCO2 POC ABG pO2 ABG pO2 ABG HCO3 ABG O2 Saturation ABG Base Excess ABG Hemoglobin ABG Oxyhemoglobin ABG Sodium ABG Potassium ABG Chloride ABG Glucose Oxyhemoglobin Sodium Potassium Chloride Carbon Dioxide BUN Creatinine Glucose POC Glucose Lactic Acid Calcium Magnesium Ferritin 58493.0 H Total Bilirubin Direct Bilirubin AST ALT Alkaline Phosphatase Lactate Dehydrogenase 1523 H C-Reactive Protein 12.90 H Total Protein Albumin Triglycerides Arterial Blood Glucose Arterial Blood Ionized Calcium Urine WBC (Auto) Coronavirus (PCR) SARS-CoV-2 IgG Ab Reactive A 05/13/20 05/13/20 05/15/20 05:20 05:20 08:15 WBC RBC Hgb Hct MCV MCH MCHC RDW Lymph % (Auto) Lymph # (Auto) Seg Neutrophils % Seg Neuts % (Manual) Lymphocytes % (Manual) Nucleated RBC % Seg Neutrophils # Seg Neutrophils # Man Lymphocytes # (Manual) Monocytes # (Manual) D-Dimer > 64703 H 5318.28 H ABG pH POC ABG pCO2 POC ABG pO2 ABG pO2 ABG HCO3 ABG O2 Saturation ABG Base Excess ABG Hemoglobin ABG Oxyhemoglobin ABG Sodium ABG Potassium ABG Chloride ABG Glucose Oxyhemoglobin Sodium Potassium Chloride Carbon Dioxide 32 H BUN 30 H Creatinine Glucose 156 H POC Glucose Lactic Acid Calcium Magnesium 2.60 H Ferritin Total Bilirubin 1.40 H Direct Bilirubin AST 121 H ALT 119 H Alkaline Phosphatase Lactate Dehydrogenase 957 H C-Reactive Protein 4.00 H Total Protein Albumin 3.0 L Triglycerides Arterial Blood Glucose Arterial Blood Ionized Calcium Urine WBC (Auto) Coronavirus (PCR) SARS-CoV-2 IgG Ab 05/15/20 05/15/20 05/15/20 08:15 08:15 08:15 WBC 12.4 H RBC Hgb Hct MCV 98 H MCH 33 H MCHC RDW Lymph % (Auto) 9.7 L Lymph # (Auto) Seg Neutrophils % 86.8 H Seg Neuts % (Manual) Lymphocytes % (Manual) Nucleated RBC % Seg Neutrophils # 10.8 H Seg Neutrophils # Man Lymphocytes # (Manual) Monocytes # (Manual) D-Dimer ABG pH POC ABG pCO2 POC ABG pO2 ABG pO2 ABG HCO3 ABG O2 Saturation ABG Base Excess ABG Hemoglobin ABG Oxyhemoglobin ABG Sodium ABG Potassium ABG Chloride ABG Glucose Oxyhemoglobin Sodium Potassium Chloride 94.8 L Carbon Dioxide 32 H BUN 22 H Creatinine Glucose 115 H POC Glucose Lactic Acid Calcium 8.3 L Magnesium Ferritin 2494.0 H Total Bilirubin Direct Bilirubin AST 73 H ALT 121 H Alkaline Phosphatase Lactate Dehydrogenase 835 H C-Reactive Protein 3.40 H Total Protein 6.1 L Albumin 3.0 L Triglycerides Arterial Blood Glucose Arterial Blood Ionized Calcium Urine WBC (Auto) Coronavirus (PCR) SARS-CoV-2 IgG Ab 05/17/20 05/17/20 05/17/20 05:50 05:50 05:50 WBC RBC Hgb Hct MCV MCH MCHC RDW Lymph % (Auto) Lymph # (Auto) Seg Neutrophils % Seg Neuts % (Manual) Lymphocytes % (Manual) Nucleated RBC % Seg Neutrophils # Seg Neutrophils # Man Lymphocytes # (Manual) Monocytes # (Manual) D-Dimer 2911.42 H ABG pH POC ABG pCO2 POC ABG pO2 ABG pO2 ABG HCO3 ABG O2 Saturation ABG Base Excess ABG Hemoglobin ABG Oxyhemoglobin ABG Sodium ABG Potassium ABG Chloride ABG Glucose Oxyhemoglobin Sodium 136 L Potassium Chloride 96.0 L Carbon Dioxide 34 H BUN 22 H Creatinine Glucose 140 H POC Glucose Lactic Acid Calcium Magnesium Ferritin 2082.0 H Total Bilirubin Direct Bilirubin AST ALT 75 H Alkaline Phosphatase Lactate Dehydrogenase 601 H C-Reactive Protein 2.70 H Total Protein Albumin 2.9 L Triglycerides Arterial Blood Glucose Arterial Blood Ionized Calcium Urine WBC (Auto) Coronavirus (PCR) SARS-CoV-2 IgG Ab 05/17/20 05/18/20 05/20/20 05:50 12:22 08:16 WBC RBC Hgb Hct MCV 98 H MCH 33 H MCHC RDW Lymph % (Auto) 8.0 L Lymph # (Auto) 0.8 L Seg Neutrophils % 89.3 H Seg Neuts % (Manual) Lymphocytes % (Manual) Nucleated RBC % Seg Neutrophils # 8.8 H Seg Neutrophils # Man Lymphocytes # (Manual) Monocytes # (Manual) D-Dimer 1887.82 H ABG pH POC ABG pCO2 POC ABG pO2 ABG pO2 ABG HCO3 ABG O2 Saturation ABG Base Excess ABG Hemoglobin ABG Oxyhemoglobin ABG Sodium ABG Potassium ABG Chloride ABG Glucose Oxyhemoglobin Sodium Potassium Chloride Carbon Dioxide BUN Creatinine Glucose POC Glucose 178 H Lactic Acid Calcium Magnesium Ferritin Total Bilirubin Direct Bilirubin AST ALT Alkaline Phosphatase Lactate Dehydrogenase C-Reactive Protein Total Protein Albumin Triglycerides Arterial Blood Glucose Arterial Blood Ionized Calcium Urine WBC (Auto) Coronavirus (PCR) SARS-CoV-2 IgG Ab 05/20/20 05/20/20 05/21/20 08:16 08:16 21:10 WBC RBC Hgb Hct MCV MCH MCHC RDW Lymph % (Auto) Lymph # (Auto) Seg Neutrophils % Seg Neuts % (Manual) Lymphocytes % (Manual) Nucleated RBC % Seg Neutrophils # Seg Neutrophils # Man Lymphocytes # (Manual) Monocytes # (Manual) D-Dimer ABG pH 7.483 H POC ABG pCO2 POC ABG pO2 ABG pO2 50.0 L ABG HCO3 27.0 H ABG O2 Saturation 86.2 L ABG Base Excess 3.7 H ABG Hemoglobin ABG Oxyhemoglobin ABG Sodium ABG Potassium ABG Chloride ABG Glucose Oxyhemoglobin 84.2 L Sodium Potassium Chloride Carbon Dioxide BUN Creatinine Glucose POC Glucose Lactic Acid Calcium Magnesium Ferritin 1960.0 H Total Bilirubin Direct Bilirubin AST ALT Alkaline Phosphatase Lactate Dehydrogenase 705 H C-Reactive Protein 3.10 H Total Protein Albumin Triglycerides Arterial Blood Glucose Arterial Blood Ionized Calcium Urine WBC (Auto) Coronavirus (PCR) SARS-CoV-2 IgG Ab 05/22/20 05/22/20 05/22/20 04:01 07:53 07:53 WBC 19.2 H RBC Hgb Hct MCV 98 H MCH 34 H MCHC RDW Lymph % (Auto) Lymph # (Auto) Seg Neutrophils % Seg Neuts % (Manual) 96.0 H Lymphocytes % (Manual) 1.0 L Nucleated RBC % Seg Neutrophils # Seg Neutrophils # Man 18.4 H Lymphocytes # (Manual) 0.2 L Monocytes # (Manual) D-Dimer ABG pH POC ABG pCO2 53.8 H POC ABG pO2 125.5 H ABG pO2 ABG HCO3 ABG O2 Saturation ABG Base Excess ABG Hemoglobin ABG Oxyhemoglobin ABG Sodium 131.8 L ABG Potassium 4.8 H ABG Chloride 94.0 L ABG Glucose 163 H Oxyhemoglobin Sodium 131 L Potassium Chloride 93.4 L Carbon Dioxide BUN 40 H Creatinine Glucose 176 H POC Glucose Lactic Acid Calcium Magnesium 2.70 H Ferritin Total Bilirubin 1.80 H Direct Bilirubin AST 45 H ALT 116 H Alkaline Phosphatase 181 H Lactate Dehydrogenase C-Reactive Protein Total Protein Albumin 2.6 L Triglycerides Arterial Blood Glucose 163 H Arterial Blood Ionized Calcium 4.5 L Urine WBC (Auto) Coronavirus (PCR) SARS-CoV-2 IgG Ab 11/15/20 11/16/20 11/16/20 04:17 03:07 04:08 WBC RBC Hgb Hct MCV MCH MCHC RDW Lymph % (Auto) Lymph # (Auto) Seg Neutrophils % Seg Neuts % (Manual) Lymphocytes % (Manual) Nucleated RBC % Seg Neutrophils # Seg Neutrophils # Man Lymphocytes # (Manual) Monocytes # (Manual) D-Dimer ABG pH 7.328 L POC ABG pCO2 POC ABG pO2 ABG pO2 72.8 L 73.4 L ABG HCO3 31.0 H 34.0 H ABG O2 Saturation 93.5 L ABG Base Excess 3.5 H 7.7 H ABG Hemoglobin 13.3 L 12.1 L ABG Oxyhemoglobin ABG Sodium ABG Potassium ABG Chloride ABG Glucose Oxyhemoglobin 91.5 L 94.3 L Sodium Potassium Chloride Carbon Dioxide BUN Creatinine Glucose POC Glucose 155 H Lactic Acid Calcium Magnesium Ferritin Total Bilirubin Direct Bilirubin AST ALT Alkaline Phosphatase Lactate Dehydrogenase C-Reactive Protein Total Protein Albumin Triglycerides Arterial Blood Glucose Arterial Blood Ionized Calcium Urine WBC (Auto) Coronavirus (PCR) SARS-CoV-2 IgG Ab 05/24/20 05/24/20 05/24/20 09:33 12:21 17:52 WBC RBC Hgb Hct MCV MCH MCHC RDW Lymph % (Auto) Lymph # (Auto) Seg Neutrophils % Seg Neuts % (Manual) Lymphocytes % (Manual) Nucleated RBC % Seg Neutrophils # Seg Neutrophils # Man Lymphocytes # (Manual) Monocytes # (Manual) D-Dimer ABG pH POC ABG pCO2 POC ABG pO2 ABG pO2 ABG HCO3 ABG O2 Saturation ABG Base Excess ABG Hemoglobin ABG Oxyhemoglobin ABG Sodium ABG Potassium ABG Chloride ABG Glucose Oxyhemoglobin Sodium Potassium Chloride Carbon Dioxide 34 H D BUN 28 H Creatinine 0.7 L Glucose 168 H POC Glucose 173 H 164 H Lactic Acid Calcium Magnesium Ferritin Total Bilirubin Direct Bilirubin AST ALT Alkaline Phosphatase Lactate Dehydrogenase C-Reactive Protein Total Protein Albumin Triglycerides Arterial Blood Glucose Arterial Blood Ionized Calcium Urine WBC (Auto) Coronavirus (PCR) SARS-CoV-2 IgG Ab 05/24/20 05/25/20 05/25/20 23:47 04:29 05:46 WBC RBC Hgb Hct MCV MCH MCHC RDW Lymph % (Auto) Lymph # (Auto) Seg Neutrophils % Seg Neuts % (Manual) Lymphocytes % (Manual) Nucleated RBC % Seg Neutrophils # Seg Neutrophils # Man Lymphocytes # (Manual) Monocytes # (Manual) D-Dimer ABG pH POC ABG pCO2 68.6 H POC ABG pO2 ABG pO2 ABG HCO3 ABG O2 Saturation ABG Base Excess ABG Hemoglobin ABG Oxyhemoglobin ABG Sodium ABG Potassium 4.7 H ABG Chloride ABG Glucose 226 H Oxyhemoglobin Sodium Potassium Chloride Carbon Dioxide BUN Creatinine Glucose POC Glucose 171 H 201 H Lactic Acid Calcium Magnesium Ferritin Total Bilirubin Direct Bilirubin AST ALT Alkaline Phosphatase Lactate Dehydrogenase C-Reactive Protein Total Protein Albumin Triglycerides Arterial Blood Glucose 226 H Arterial Blood Ionized Calcium Urine WBC (Auto) Coronavirus (PCR) SARS-CoV-2 IgG Ab 05/25/20 05/25/20 05/25/20 08:37 08:37 12:38 WBC 12.0 H RBC 3.64 L Hgb Hct MCV 99 H MCH 33 H MCHC RDW Lymph % (Auto) Lymph # (Auto) Seg Neutrophils % Seg Neuts % (Manual) Lymphocytes % (Manual) Nucleated RBC % Seg Neutrophils # Seg Neutrophils # Man Lymphocytes # (Manual) Monocytes # (Manual) D-Dimer ABG pH POC ABG pCO2 POC ABG pO2 ABG pO2 ABG HCO3 ABG O2 Saturation ABG Base Excess ABG Hemoglobin ABG Oxyhemoglobin ABG Sodium ABG Potassium ABG Chloride ABG Glucose Oxyhemoglobin Sodium Potassium Chloride 97.3 L Carbon Dioxide 35 H BUN 25 H Creatinine 0.7 L Glucose 191 H POC Glucose 182 H Lactic Acid Calcium Magnesium Ferritin Total Bilirubin Direct Bilirubin AST ALT Alkaline Phosphatase Lactate Dehydrogenase C-Reactive Protein Total Protein Albumin Triglycerides Arterial Blood Glucose Arterial Blood Ionized Calcium Urine WBC (Auto) Coronavirus (PCR) SARS-CoV-2 IgG Ab 05/25/20 05/26/20 05/26/20 18:16 00:06 04:50 WBC RBC Hgb Hct MCV MCH MCHC RDW Lymph % (Auto) Lymph # (Auto) Seg Neutrophils % Seg Neuts % (Manual) Lymphocytes % (Manual) Nucleated RBC % Seg Neutrophils # Seg Neutrophils # Man Lymphocytes # (Manual) Monocytes # (Manual) D-Dimer ABG pH POC ABG pCO2 POC ABG pO2 ABG pO2 221.5 H ABG HCO3 40.4 H ABG O2 Saturation 99.3 H ABG Base Excess 12.8 H ABG Hemoglobin 10.4 L ABG Oxyhemoglobin ABG Sodium ABG Potassium ABG Chloride ABG Glucose Oxyhemoglobin Sodium Potassium Chloride Carbon Dioxide BUN Creatinine Glucose POC Glucose 176 H 152 H Lactic Acid Calcium Magnesium Ferritin Total Bilirubin Direct Bilirubin AST ALT Alkaline Phosphatase Lactate Dehydrogenase C-Reactive Protein Total Protein Albumin Triglycerides Arterial Blood Glucose Arterial Blood Ionized Calcium Urine WBC (Auto) Coronavirus (PCR) SARS-CoV-2 IgG Ab 05/26/20 05/26/20 05/26/20 06:11 07:51 07:51 WBC 13.4 H RBC 3.64 L Hgb Hct MCV 98 H MCH 33 H MCHC RDW Lymph % (Auto) Lymph # (Auto) Seg Neutrophils % Seg Neuts % (Manual) Lymphocytes % (Manual) Nucleated RBC % Seg Neutrophils # Seg Neutrophils # Man Lymphocytes # (Manual) Monocytes # (Manual) D-Dimer ABG pH POC ABG pCO2 POC ABG pO2 ABG pO2 ABG HCO3 ABG O2 Saturation ABG Base Excess ABG Hemoglobin ABG Oxyhemoglobin ABG Sodium ABG Potassium ABG Chloride ABG Glucose Oxyhemoglobin Sodium Potassium Chloride 96.6 L Carbon Dioxide 39 H BUN 29 H Creatinine 0.7 L Glucose 174 H POC Glucose 165 H Lactic Acid Calcium Magnesium Ferritin Total Bilirubin Direct Bilirubin AST ALT Alkaline Phosphatase Lactate Dehydrogenase C-Reactive Protein Total Protein Albumin Triglycerides Arterial Blood Glucose Arterial Blood Ionized Calcium Urine WBC (Auto) Coronavirus (PCR) SARS-CoV-2 IgG Ab 05/26/20 05/27/20 05/27/20 23:23 03:43 05:29 WBC RBC Hgb Hct MCV MCH MCHC RDW Lymph % (Auto) Lymph # (Auto) Seg Neutrophils % Seg Neuts % (Manual) Lymphocytes % (Manual) Nucleated RBC % Seg Neutrophils # Seg Neutrophils # Man Lymphocytes # (Manual) Monocytes # (Manual) D-Dimer ABG pH 7.480 H POC ABG pCO2 52.4 H POC ABG pO2 61.4 L ABG pO2 ABG HCO3 ABG O2 Saturation ABG Base Excess ABG Hemoglobin ABG Oxyhemoglobin ABG Sodium 134.9 L ABG Potassium ABG Chloride 95.0 L ABG Glucose 221 H Oxyhemoglobin Sodium Potassium Chloride Carbon Dioxide BUN Creatinine Glucose POC Glucose 169 H 227 H Lactic Acid Calcium Magnesium Ferritin Total Bilirubin Direct Bilirubin AST ALT Alkaline Phosphatase Lactate Dehydrogenase C-Reactive Protein Total Protein Albumin Triglycerides Arterial Blood Glucose 221 H Arterial Blood Ionized Calcium 4.5 L Urine WBC (Auto) Coronavirus (PCR) SARS-CoV-2 IgG Ab 05/27/20 05/27/20 05/27/20 07:19 12:18 13:50 WBC RBC Hgb Hct MCV MCH MCHC RDW Lymph % (Auto) Lymph # (Auto) Seg Neutrophils % Seg Neuts % (Manual) Lymphocytes % (Manual) Nucleated RBC % Seg Neutrophils # Seg Neutrophils # Man Lymphocytes # (Manual) Monocytes # (Manual) D-Dimer ABG pH POC ABG pCO2 POC ABG pO2 ABG pO2 ABG HCO3 ABG O2 Saturation ABG Base Excess ABG Hemoglobin ABG Oxyhemoglobin ABG Sodium ABG Potassium ABG Chloride ABG Glucose Oxyhemoglobin Sodium Potassium Chloride Carbon Dioxide BUN Creatinine Glucose POC Glucose 114 H 148 H Lactic Acid Calcium Magnesium Ferritin Total Bilirubin Direct Bilirubin AST ALT Alkaline Phosphatase Lactate Dehydrogenase C-Reactive Protein Total Protein Albumin Triglycerides 247 H Arterial Blood Glucose Arterial Blood Ionized Calcium Urine WBC (Auto) Coronavirus (PCR) SARS-CoV-2 IgG Ab 05/28/20 05/28/20 05/28/20 00:13 04:16 05:22 WBC RBC Hgb Hct MCV MCH MCHC RDW Lymph % (Auto) Lymph # (Auto) Seg Neutrophils % Seg Neuts % (Manual) Lymphocytes % (Manual) Nucleated RBC % Seg Neutrophils # Seg Neutrophils # Man Lymphocytes # (Manual) Monocytes # (Manual) D-Dimer ABG pH POC ABG pCO2 64.4 H POC ABG pO2 60.5 L ABG pO2 ABG HCO3 ABG O2 Saturation ABG Base Excess ABG Hemoglobin ABG Oxyhemoglobin ABG Sodium ABG Potassium ABG Chloride 95.0 L ABG Glucose 209 H Oxyhemoglobin Sodium Potassium Chloride Carbon Dioxide BUN Creatinine Glucose POC Glucose 155 H 186 H Lactic Acid Calcium Magnesium Ferritin Total Bilirubin Direct Bilirubin AST ALT Alkaline Phosphatase Lactate Dehydrogenase C-Reactive Protein Total Protein Albumin Triglycerides Arterial Blood Glucose 209 H Arterial Blood Ionized Calcium Urine WBC (Auto) Coronavirus (PCR) SARS-CoV-2 IgG Ab 05/28/20 05/28/20 05/29/20 12:45 17:39 00:37 WBC RBC Hgb Hct MCV MCH MCHC RDW Lymph % (Auto) Lymph # (Auto) Seg Neutrophils % Seg Neuts % (Manual) Lymphocytes % (Manual) Nucleated RBC % Seg Neutrophils # Seg Neutrophils # Man Lymphocytes # (Manual) Monocytes # (Manual) D-Dimer ABG pH POC ABG pCO2 POC ABG pO2 ABG pO2 ABG HCO3 ABG O2 Saturation ABG Base Excess ABG Hemoglobin ABG Oxyhemoglobin ABG Sodium ABG Potassium ABG Chloride ABG Glucose Oxyhemoglobin Sodium Potassium Chloride Carbon Dioxide BUN Creatinine Glucose POC Glucose 143 H 164 H 221 H Lactic Acid Calcium Magnesium Ferritin Total Bilirubin Direct Bilirubin AST ALT Alkaline Phosphatase Lactate Dehydrogenase C-Reactive Protein Total Protein Albumin Triglycerides Arterial Blood Glucose Arterial Blood Ionized Calcium Urine WBC (Auto) Coronavirus (PCR) SARS-CoV-2 IgG Ab 05/29/20 05/29/20 05/29/20 04:15 05:33 12:34 WBC RBC Hgb Hct MCV MCH MCHC RDW Lymph % (Auto) Lymph # (Auto) Seg Neutrophils % Seg Neuts % (Manual) Lymphocytes % (Manual) Nucleated RBC % Seg Neutrophils # Seg Neutrophils # Man Lymphocytes # (Manual) Monocytes # (Manual) D-Dimer ABG pH 7.463 H POC ABG pCO2 56.3 H POC ABG pO2 81.2 L ABG pO2 ABG HCO3 ABG O2 Saturation ABG Base Excess ABG Hemoglobin ABG Oxyhemoglobin ABG Sodium ABG Potassium ABG Chloride 96.0 L ABG Glucose 194 H Oxyhemoglobin Sodium Potassium Chloride Carbon Dioxide BUN Creatinine Glucose POC Glucose 133 H 221 H Lactic Acid Calcium Magnesium Ferritin Total Bilirubin Direct Bilirubin AST ALT Alkaline Phosphatase Lactate Dehydrogenase C-Reactive Protein Total Protein Albumin Triglycerides Arterial Blood Glucose 194 H Arterial Blood Ionized Calcium 4.5 L Urine WBC (Auto) Coronavirus (PCR) SARS-CoV-2 IgG Ab 05/29/20 05/30/20 05/30/20 18:07 00:12 05:38 WBC RBC Hgb Hct MCV MCH MCHC RDW Lymph % (Auto) Lymph # (Auto) Seg Neutrophils % Seg Neuts % (Manual) Lymphocytes % (Manual) Nucleated RBC % Seg Neutrophils # Seg Neutrophils # Man Lymphocytes # (Manual) Monocytes # (Manual) D-Dimer ABG pH POC ABG pCO2 POC ABG pO2 ABG pO2 ABG HCO3 ABG O2 Saturation ABG Base Excess ABG Hemoglobin ABG Oxyhemoglobin ABG Sodium ABG Potassium ABG Chloride ABG Glucose Oxyhemoglobin Sodium Potassium Chloride Carbon Dioxide BUN Creatinine Glucose POC Glucose 162 H 190 H 208 H Lactic Acid Calcium Magnesium Ferritin Total Bilirubin Direct Bilirubin AST ALT Alkaline Phosphatase Lactate Dehydrogenase C-Reactive Protein Total Protein Albumin Triglycerides Arterial Blood Glucose Arterial Blood Ionized Calcium Urine WBC (Auto) Coronavirus (PCR) SARS-CoV-2 IgG Ab 05/30/20 05/30/20 05/30/20 09:30 11:35 11:54 WBC 12.4 H RBC 3.48 L Hgb 11.3 L Hct 34.6 L MCV 99 H MCH 33 H MCHC RDW Lymph % (Auto) Lymph # (Auto) Seg Neutrophils % Seg Neuts % (Manual) Lymphocytes % (Manual) Nucleated RBC % Seg Neutrophils # Seg Neutrophils # Man Lymphocytes # (Manual) Monocytes # (Manual) D-Dimer ABG pH 7.455 H POC ABG pCO2 57.5 H POC ABG pO2 81.5 L ABG pO2 ABG HCO3 ABG O2 Saturation ABG Base Excess ABG Hemoglobin ABG Oxyhemoglobin ABG Sodium ABG Potassium ABG Chloride 96.0 L ABG Glucose 204 H Oxyhemoglobin Sodium Potassium Chloride Carbon Dioxide BUN Creatinine Glucose POC Glucose 183 H Lactic Acid Calcium Magnesium Ferritin Total Bilirubin Direct Bilirubin AST ALT Alkaline Phosphatase Lactate Dehydrogenase C-Reactive Protein Total Protein Albumin Triglycerides Arterial Blood Glucose 204 H Arterial Blood Ionized Calcium Urine WBC (Auto) Coronavirus (PCR) SARS-CoV-2 IgG Ab 05/30/20 05/31/20 05/31/20 18:01 00:10 03:22 WBC RBC Hgb Hct MCV MCH MCHC RDW Lymph % (Auto) Lymph # (Auto) Seg Neutrophils % Seg Neuts % (Manual) Lymphocytes % (Manual) Nucleated RBC % Seg Neutrophils # Seg Neutrophils # Man Lymphocytes # (Manual) Monocytes # (Manual) D-Dimer ABG pH POC ABG pCO2 60.4 H POC ABG pO2 71.5 L ABG pO2 ABG HCO3 ABG O2 Saturation ABG Base Excess ABG Hemoglobin ABG Oxyhemoglobin ABG Sodium ABG Potassium ABG Chloride 96.0 L ABG Glucose 169 H Oxyhemoglobin Sodium Potassium Chloride Carbon Dioxide BUN Creatinine Glucose POC Glucose 184 H 135 H Lactic Acid Calcium Magnesium Ferritin Total Bilirubin Direct Bilirubin AST ALT Alkaline Phosphatase Lactate Dehydrogenase C-Reactive Protein Total Protein Albumin Triglycerides Arterial Blood Glucose 169 H Arterial Blood Ionized Calcium 4.5 L Urine WBC (Auto) Coronavirus (PCR) SARS-CoV-2 IgG Ab 05/31/20 05/31/20 05/31/20 05:24 11:18 14:41 WBC RBC Hgb Hct MCV MCH MCHC RDW Lymph % (Auto) Lymph # (Auto) Seg Neutrophils % Seg Neuts % (Manual) Lymphocytes % (Manual) Nucleated RBC % Seg Neutrophils # Seg Neutrophils # Man Lymphocytes # (Manual) Monocytes # (Manual) D-Dimer ABG pH POC ABG pCO2 POC ABG pO2 ABG pO2 ABG HCO3 ABG O2 Saturation ABG Base Excess ABG Hemoglobin ABG Oxyhemoglobin ABG Sodium ABG Potassium ABG Chloride ABG Glucose Oxyhemoglobin Sodium Potassium Chloride 96.8 L Carbon Dioxide 37 H BUN 31 H Creatinine 0.6 L Glucose 213 H POC Glucose 164 H 208 H Lactic Acid Calcium Magnesium Ferritin Total Bilirubin Direct Bilirubin AST ALT Alkaline Phosphatase Lactate Dehydrogenase C-Reactive Protein Total Protein Albumin Triglycerides Arterial Blood Glucose Arterial Blood Ionized Calcium Urine WBC (Auto) Coronavirus (PCR) SARS-CoV-2 IgG Ab 05/31/20 05/31/20 06/01/20 17:37 23:47 03:48 WBC RBC Hgb Hct MCV MCH MCHC RDW Lymph % (Auto) Lymph # (Auto) Seg Neutrophils % Seg Neuts % (Manual) Lymphocytes % (Manual) Nucleated RBC % Seg Neutrophils # Seg Neutrophils # Man Lymphocytes # (Manual) Monocytes # (Manual) D-Dimer ABG pH POC ABG pCO2 59.7 H POC ABG pO2 73.9 L ABG pO2 ABG HCO3 ABG O2 Saturation ABG Base Excess ABG Hemoglobin ABG Oxyhemoglobin ABG Sodium ABG Potassium ABG Chloride 95.0 L ABG Glucose 256 H Oxyhemoglobin Sodium Potassium Chloride Carbon Dioxide BUN Creatinine Glucose POC Glucose 168 H 178 H Lactic Acid Calcium Magnesium Ferritin Total Bilirubin Direct Bilirubin AST ALT Alkaline Phosphatase Lactate Dehydrogenase C-Reactive Protein Total Protein Albumin Triglycerides Arterial Blood Glucose 256 H Arterial Blood Ionized Calcium Urine WBC (Auto) Coronavirus (PCR) SARS-CoV-2 IgG Ab 06/01/20 06/01/20 06/01/20 05:01 07:47 07:47 WBC 14.4 H RBC 3.46 L Hgb 11.1 L Hct 34.3 L MCV 99 H MCH MCHC RDW Lymph % (Auto) Lymph # (Auto) Seg Neutrophils % Seg Neuts % (Manual) 86.0 H Lymphocytes % (Manual) 9.0 L Nucleated RBC % Seg Neutrophils # Seg Neutrophils # Man 12.4 H Lymphocytes # (Manual) Monocytes # (Manual) D-Dimer ABG pH POC ABG pCO2 POC ABG pO2 ABG pO2 ABG HCO3 ABG O2 Saturation ABG Base Excess ABG Hemoglobin ABG Oxyhemoglobin ABG Sodium ABG Potassium ABG Chloride ABG Glucose Oxyhemoglobin Sodium Potassium Chloride Carbon Dioxide BUN Creatinine Glucose POC Glucose 197 H Lactic Acid Calcium Magnesium Ferritin Total Bilirubin Direct Bilirubin AST ALT Alkaline Phosphatase Lactate Dehydrogenase C-Reactive Protein Total Protein Albumin Triglycerides 244 H Arterial Blood Glucose Arterial Blood Ionized Calcium Urine WBC (Auto) Coronavirus (PCR) SARS-CoV-2 IgG Ab 06/01/20 06/01/20 06/01/20 07:47 11:46 18:15 WBC RBC Hgb Hct MCV MCH MCHC RDW Lymph % (Auto) Lymph # (Auto) Seg Neutrophils % Seg Neuts % (Manual) Lymphocytes % (Manual) Nucleated RBC % Seg Neutrophils # Seg Neutrophils # Man Lymphocytes # (Manual) Monocytes # (Manual) D-Dimer ABG pH POC ABG pCO2 POC ABG pO2 ABG pO2 ABG HCO3 ABG O2 Saturation ABG Base Excess ABG Hemoglobin ABG Oxyhemoglobin ABG Sodium ABG Potassium ABG Chloride ABG Glucose Oxyhemoglobin Sodium Potassium Chloride 95.4 L Carbon Dioxide 35 H BUN 30 H Creatinine 0.5 L Glucose 214 H POC Glucose 181 H 221 H Lactic Acid Calcium Magnesium Ferritin Total Bilirubin Direct Bilirubin AST 54 H ALT 235 H Alkaline Phosphatase Lactate Dehydrogenase C-Reactive Protein Total Protein Albumin 2.9 L Triglycerides Arterial Blood Glucose Arterial Blood Ionized Calcium Urine WBC (Auto) Coronavirus (PCR) SARS-CoV-2 IgG Ab 06/01/20 06/02/20 06/02/20 23:12 04:00 05:31 WBC RBC Hgb Hct MCV MCH MCHC RDW Lymph % (Auto) Lymph # (Auto) Seg Neutrophils % Seg Neuts % (Manual) Lymphocytes % (Manual) Nucleated RBC % Seg Neutrophils # Seg Neutrophils # Man Lymphocytes # (Manual) Monocytes # (Manual) D-Dimer ABG pH 7.465 H POC ABG pCO2 POC ABG pO2 ABG pO2 203.4 H ABG HCO3 41.2 H ABG O2 Saturation 99.3 H ABG Base Excess 15.1 H ABG Hemoglobin 11.5 L ABG Oxyhemoglobin ABG Sodium ABG Potassium ABG Chloride ABG Glucose Oxyhemoglobin Sodium Potassium Chloride Carbon Dioxide BUN Creatinine Glucose POC Glucose 197 H 184 H Lactic Acid Calcium Magnesium Ferritin Total Bilirubin Direct Bilirubin AST ALT Alkaline Phosphatase Lactate Dehydrogenase C-Reactive Protein Total Protein Albumin Triglycerides Arterial Blood Glucose Arterial Blood Ionized Calcium Urine WBC (Auto) Coronavirus (PCR) SARS-CoV-2 IgG Ab 06/02/20 06/02/20 06/02/20 11:49 18:06 23:00 WBC RBC Hgb Hct MCV MCH MCHC RDW Lymph % (Auto) Lymph # (Auto) Seg Neutrophils % Seg Neuts % (Manual) Lymphocytes % (Manual) Nucleated RBC % Seg Neutrophils # Seg Neutrophils # Man Lymphocytes # (Manual) Monocytes # (Manual) D-Dimer ABG pH POC ABG pCO2 POC ABG pO2 ABG pO2 ABG HCO3 ABG O2 Saturation ABG Base Excess ABG Hemoglobin ABG Oxyhemoglobin ABG Sodium ABG Potassium ABG Chloride ABG Glucose Oxyhemoglobin Sodium Potassium Chloride Carbon Dioxide BUN Creatinine Glucose POC Glucose 195 H 177 H 228 H Lactic Acid Calcium Magnesium Ferritin Total Bilirubin Direct Bilirubin AST ALT Alkaline Phosphatase Lactate Dehydrogenase C-Reactive Protein Total Protein Albumin Triglycerides Arterial Blood Glucose Arterial Blood Ionized Calcium Urine WBC (Auto) Coronavirus (PCR) SARS-CoV-2 IgG Ab 06/03/20 06/03/20 06/03/20 03:58 05:19 12:21 WBC RBC Hgb Hct MCV MCH MCHC RDW Lymph % (Auto) Lymph # (Auto) Seg Neutrophils % Seg Neuts % (Manual) Lymphocytes % (Manual) Nucleated RBC % Seg Neutrophils # Seg Neutrophils # Man Lymphocytes # (Manual) Monocytes # (Manual) D-Dimer ABG pH POC ABG pCO2 POC ABG pO2 ABG pO2 171.0 H ABG HCO3 42.8 H ABG O2 Saturation ABG Base Excess 15.6 H ABG Hemoglobin 12.3 L ABG Oxyhemoglobin ABG Sodium ABG Potassium ABG Chloride ABG Glucose Oxyhemoglobin Sodium Potassium Chloride Carbon Dioxide BUN Creatinine Glucose POC Glucose 122 H 207 H Lactic Acid Calcium Magnesium Ferritin Total Bilirubin Direct Bilirubin AST ALT Alkaline Phosphatase Lactate Dehydrogenase C-Reactive Protein Total Protein Albumin Triglycerides Arterial Blood Glucose Arterial Blood Ionized Calcium Urine WBC (Auto) Coronavirus (PCR) SARS-CoV-2 IgG Ab 06/03/20 06/03/20 06/04/20 17:27 23:50 03:55 WBC RBC Hgb Hct MCV MCH MCHC RDW Lymph % (Auto) Lymph # (Auto) Seg Neutrophils % Seg Neuts % (Manual) Lymphocytes % (Manual) Nucleated RBC % Seg Neutrophils # Seg Neutrophils # Man Lymphocytes # (Manual) Monocytes # (Manual) D-Dimer ABG pH POC ABG pCO2 POC ABG pO2 ABG pO2 117.2 H ABG HCO3 42.4 H ABG O2 Saturation ABG Base Excess 15.3 H ABG Hemoglobin 10.5 L ABG Oxyhemoglobin ABG Sodium ABG Potassium ABG Chloride ABG Glucose Oxyhemoglobin Sodium Potassium Chloride Carbon Dioxide BUN Creatinine Glucose POC Glucose 157 H 214 H Lactic Acid Calcium Magnesium Ferritin Total Bilirubin Direct Bilirubin AST ALT Alkaline Phosphatase Lactate Dehydrogenase C-Reactive Protein Total Protein Albumin Triglycerides Arterial Blood Glucose Arterial Blood Ionized Calcium Urine WBC (Auto) Coronavirus (PCR) SARS-CoV-2 IgG Ab 06/04/20 06/04/20 06/04/20 05:49 11:41 17:30 WBC RBC Hgb Hct MCV MCH MCHC RDW Lymph % (Auto) Lymph # (Auto) Seg Neutrophils % Seg Neuts % (Manual) Lymphocytes % (Manual) Nucleated RBC % Seg Neutrophils # Seg Neutrophils # Man Lymphocytes # (Manual) Monocytes # (Manual) D-Dimer ABG pH POC ABG pCO2 POC ABG pO2 ABG pO2 ABG HCO3 ABG O2 Saturation ABG Base Excess ABG Hemoglobin ABG Oxyhemoglobin ABG Sodium ABG Potassium ABG Chloride ABG Glucose Oxyhemoglobin Sodium Potassium Chloride Carbon Dioxide BUN Creatinine Glucose POC Glucose 149 H 233 H 156 H Lactic Acid Calcium Magnesium Ferritin Total Bilirubin Direct Bilirubin AST ALT Alkaline Phosphatase Lactate Dehydrogenase C-Reactive Protein Total Protein Albumin Triglycerides Arterial Blood Glucose Arterial Blood Ionized Calcium Urine WBC (Auto) Coronavirus (PCR) SARS-CoV-2 IgG Ab 06/04/20 06/04/20 06/04/20 19:01 20:53 23:41 WBC RBC 3.18 L Hgb 10.8 L Hct 31.8 L MCV 100 H MCH 34 H MCHC RDW Lymph % (Auto) Lymph # (Auto) Seg Neutrophils % Seg Neuts % (Manual) 86.0 H Lymphocytes % (Manual) 10.0 L Nucleated RBC % 1.0 H Seg Neutrophils # Seg Neutrophils # Man 8.5 H Lymphocytes # (Manual) 1.0 L Monocytes # (Manual) D-Dimer ABG pH POC ABG pCO2 POC ABG pO2 ABG pO2 ABG HCO3 ABG O2 Saturation ABG Base Excess ABG Hemoglobin ABG Oxyhemoglobin ABG Sodium ABG Potassium ABG Chloride ABG Glucose Oxyhemoglobin Sodium Potassium 3.4 L D Chloride 96.5 L Carbon Dioxide 41 H* BUN 27 H Creatinine 0.5 L Glucose 173 H POC Glucose 217 H Lactic Acid Calcium Magnesium Ferritin Total Bilirubin Direct Bilirubin AST ALT Alkaline Phosphatase Lactate Dehydrogenase C-Reactive Protein Total Protein Albumin Triglycerides Arterial Blood Glucose Arterial Blood Ionized Calcium Urine WBC (Auto) Coronavirus (PCR) SARS-CoV-2 IgG Ab 06/05/20 06/05/20 06/05/20 06:05 11:54 12:35 WBC RBC Hgb Hct MCV MCH MCHC RDW Lymph % (Auto) Lymph # (Auto) Seg Neutrophils % Seg Neuts % (Manual) Lymphocytes % (Manual) Nucleated RBC % Seg Neutrophils # Seg Neutrophils # Man Lymphocytes # (Manual) Monocytes # (Manual) D-Dimer ABG pH POC ABG pCO2 POC ABG pO2 ABG pO2 127.9 H ABG HCO3 41.1 H ABG O2 Saturation ABG Base Excess 13.0 H ABG Hemoglobin 13.4 L ABG Oxyhemoglobin ABG Sodium ABG Potassium ABG Chloride ABG Glucose Oxyhemoglobin Sodium Potassium Chloride Carbon Dioxide BUN Creatinine Glucose POC Glucose 137 H 211 H Lactic Acid Calcium Magnesium Ferritin Total Bilirubin Direct Bilirubin AST ALT Alkaline Phosphatase Lactate Dehydrogenase C-Reactive Protein Total Protein Albumin Triglycerides Arterial Blood Glucose Arterial Blood Ionized Calcium Urine WBC (Auto) Coronavirus (PCR) SARS-CoV-2 IgG Ab 06/05/20 06/05/20 06/06/20 17:03 23:49 04:42 WBC RBC Hgb Hct MCV MCH MCHC RDW Lymph % (Auto) Lymph # (Auto) Seg Neutrophils % Seg Neuts % (Manual) Lymphocytes % (Manual) Nucleated RBC % Seg Neutrophils # Seg Neutrophils # Man Lymphocytes # (Manual) Monocytes # (Manual) D-Dimer ABG pH POC ABG pCO2 56.1 H POC ABG pO2 52.5 L ABG pO2 ABG HCO3 ABG O2 Saturation ABG Base Excess ABG Hemoglobin 11.7 L ABG Oxyhemoglobin ABG Sodium ABG Potassium 3.3 L ABG Chloride 95.0 L ABG Glucose 156 H Oxyhemoglobin Sodium Potassium Chloride Carbon Dioxide BUN Creatinine Glucose POC Glucose 159 H 194 H Lactic Acid Calcium Magnesium Ferritin Total Bilirubin Direct Bilirubin AST ALT Alkaline Phosphatase Lactate Dehydrogenase C-Reactive Protein Total Protein Albumin Triglycerides Arterial Blood Glucose 156 H Arterial Blood Ionized Calcium Urine WBC (Auto) Coronavirus (PCR) SARS-CoV-2 IgG Ab 06/06/20 06/06/20 06/06/20 05:57 12:06 17:38 WBC RBC Hgb Hct MCV MCH MCHC RDW Lymph % (Auto) Lymph # (Auto) Seg Neutrophils % Seg Neuts % (Manual) Lymphocytes % (Manual) Nucleated RBC % Seg Neutrophils # Seg Neutrophils # Man Lymphocytes # (Manual) Monocytes # (Manual) D-Dimer ABG pH POC ABG pCO2 POC ABG pO2 ABG pO2 ABG HCO3 ABG O2 Saturation ABG Base Excess ABG Hemoglobin ABG Oxyhemoglobin ABG Sodium ABG Potassium ABG Chloride ABG Glucose Oxyhemoglobin Sodium Potassium Chloride Carbon Dioxide BUN Creatinine Glucose POC Glucose 144 H 230 H 162 H Lactic Acid Calcium Magnesium Ferritin Total Bilirubin Direct Bilirubin AST ALT Alkaline Phosphatase Lactate Dehydrogenase C-Reactive Protein Total Protein Albumin Triglycerides Arterial Blood Glucose Arterial Blood Ionized Calcium Urine WBC (Auto) Coronavirus (PCR) SARS-CoV-2 IgG Ab 06/06/20 06/07/20 06/07/20 23:50 04:34 06:03 WBC RBC Hgb Hct MCV MCH MCHC RDW Lymph % (Auto) Lymph # (Auto) Seg Neutrophils % Seg Neuts % (Manual) Lymphocytes % (Manual) Nucleated RBC % Seg Neutrophils # Seg Neutrophils # Man Lymphocytes # (Manual) Monocytes # (Manual) D-Dimer ABG pH 7.511 H POC ABG pCO2 53.5 H POC ABG pO2 114.5 H ABG pO2 ABG HCO3 ABG O2 Saturation ABG Base Excess ABG Hemoglobin 9.4 L ABG Oxyhemoglobin ABG Sodium 134.5 L ABG Potassium ABG Chloride 94.0 L ABG Glucose 186 H Oxyhemoglobin Sodium Potassium Chloride Carbon Dioxide BUN Creatinine Glucose POC Glucose 181 H 155 H Lactic Acid Calcium Magnesium Ferritin Total Bilirubin Direct Bilirubin AST ALT Alkaline Phosphatase Lactate Dehydrogenase C-Reactive Protein Total Protein Albumin Triglycerides Arterial Blood Glucose 186 H Arterial Blood Ionized Calcium 4.5 L Urine WBC (Auto) Coronavirus (PCR) SARS-CoV-2 IgG Ab 06/07/20 06/07/20 06/07/20 13:41 14:58 14:58 WBC RBC 2.72 L Hgb 9.3 L Hct 27.2 L MCV 100 H MCH 34 H MCHC RDW Lymph % (Auto) Lymph # (Auto) Seg Neutrophils % Seg Neuts % (Manual) Lymphocytes % (Manual) Nucleated RBC % Seg Neutrophils # Seg Neutrophils # Man Lymphocytes # (Manual) Monocytes # (Manual) D-Dimer ABG pH POC ABG pCO2 POC ABG pO2 ABG pO2 ABG HCO3 ABG O2 Saturation ABG Base Excess ABG Hemoglobin ABG Oxyhemoglobin ABG Sodium ABG Potassium ABG Chloride ABG Glucose Oxyhemoglobin Sodium Potassium Chloride 93.5 L Carbon Dioxide 39 H BUN 22 H Creatinine 0.4 L Glucose 188 H POC Glucose 201 H Lactic Acid Calcium Magnesium Ferritin Total Bilirubin Direct Bilirubin AST 61 H ALT 273 H Alkaline Phosphatase Lactate Dehydrogenase C-Reactive Protein Total Protein 5.9 L Albumin 2.7 L Triglycerides Arterial Blood Glucose Arterial Blood Ionized Calcium Urine WBC (Auto) Coronavirus (PCR) SARS-CoV-2 IgG Ab 06/07/20 06/08/20 06/08/20 23:18 05:31 12:07 WBC RBC Hgb Hct MCV MCH MCHC RDW Lymph % (Auto) Lymph # (Auto) Seg Neutrophils % Seg Neuts % (Manual) Lymphocytes % (Manual) Nucleated RBC % Seg Neutrophils # Seg Neutrophils # Man Lymphocytes # (Manual) Monocytes # (Manual) D-Dimer ABG pH POC ABG pCO2 POC ABG pO2 ABG pO2 ABG HCO3 ABG O2 Saturation ABG Base Excess ABG Hemoglobin ABG Oxyhemoglobin ABG Sodium ABG Potassium ABG Chloride ABG Glucose Oxyhemoglobin Sodium Potassium Chloride Carbon Dioxide BUN Creatinine Glucose POC Glucose 214 H 129 H 179 H Lactic Acid Calcium Magnesium Ferritin Total Bilirubin Direct Bilirubin AST ALT Alkaline Phosphatase Lactate Dehydrogenase C-Reactive Protein Total Protein Albumin Triglycerides Arterial Blood Glucose Arterial Blood Ionized Calcium Urine WBC (Auto) Coronavirus (PCR) SARS-CoV-2 IgG Ab 06/08/20 06/08/20 06/09/20 18:18 23:35 05:42 WBC RBC Hgb Hct MCV MCH MCHC RDW Lymph % (Auto) Lymph # (Auto) Seg Neutrophils % Seg Neuts % (Manual) Lymphocytes % (Manual) Nucleated RBC % Seg Neutrophils # Seg Neutrophils # Man Lymphocytes # (Manual) Monocytes # (Manual) D-Dimer ABG pH POC ABG pCO2 POC ABG pO2 ABG pO2 ABG HCO3 ABG O2 Saturation ABG Base Excess ABG Hemoglobin ABG Oxyhemoglobin ABG Sodium ABG Potassium ABG Chloride ABG Glucose Oxyhemoglobin Sodium Potassium Chloride Carbon Dioxide BUN Creatinine Glucose POC Glucose 172 H 177 H 137 H Lactic Acid Calcium Magnesium Ferritin Total Bilirubin Direct Bilirubin AST ALT Alkaline Phosphatase Lactate Dehydrogenase C-Reactive Protein Total Protein Albumin Triglycerides Arterial Blood Glucose Arterial Blood Ionized Calcium Urine WBC (Auto) Coronavirus (PCR) SARS-CoV-2 IgG Ab 06/09/20 06/09/20 06/09/20 06:20 07:55 07:55 WBC 12.4 H RBC 3.26 L Hgb 11.1 L Hct 33.4 L D MCV 102 H MCH 34 H MCHC RDW Lymph % (Auto) Lymph # (Auto) Seg Neutrophils % Seg Neuts % (Manual) Lymphocytes % (Manual) Nucleated RBC % Seg Neutrophils # Seg Neutrophils # Man Lymphocytes # (Manual) Monocytes # (Manual) D-Dimer ABG pH 7.466 H POC ABG pCO2 50.7 H POC ABG pO2 53.0 L ABG pO2 ABG HCO3 ABG O2 Saturation ABG Base Excess ABG Hemoglobin ABG Oxyhemoglobin ABG Sodium ABG Potassium 2.9 L ABG Chloride 93.0 L ABG Glucose 138 H Oxyhemoglobin Sodium Potassium 3.0 L Chloride 92.3 L Carbon Dioxide 37 H BUN 21 H Creatinine 0.6 L Glucose 120 H POC Glucose Lactic Acid Calcium Magnesium Ferritin Total Bilirubin Direct Bilirubin AST ALT Alkaline Phosphatase Lactate Dehydrogenase C-Reactive Protein Total Protein Albumin Triglycerides Arterial Blood Glucose 138 H Arterial Blood Ionized Calcium 4.5 L Urine WBC (Auto) Coronavirus (PCR) SARS-CoV-2 IgG Ab 06/09/20 06/09/20 06/10/20 11:22 18:32 04:46 WBC RBC Hgb Hct MCV MCH MCHC RDW Lymph % (Auto) Lymph # (Auto) Seg Neutrophils % Seg Neuts % (Manual) Lymphocytes % (Manual) Nucleated RBC % Seg Neutrophils # Seg Neutrophils # Man Lymphocytes # (Manual) Monocytes # (Manual) D-Dimer ABG pH 7.501 H POC ABG pCO2 POC ABG pO2 126.5 H ABG pO2 ABG HCO3 ABG O2 Saturation ABG Base Excess ABG Hemoglobin 10.3 L ABG Oxyhemoglobin ABG Sodium ABG Potassium ABG Chloride ABG Glucose 220 H Oxyhemoglobin Sodium Potassium Chloride Carbon Dioxide BUN Creatinine Glucose POC Glucose 117 H 121 H Lactic Acid Calcium Magnesium Ferritin Total Bilirubin Direct Bilirubin AST ALT Alkaline Phosphatase Lactate Dehydrogenase C-Reactive Protein Total Protein Albumin Triglycerides Arterial Blood Glucose 220 H Arterial Blood Ionized Calcium Urine WBC (Auto) Coronavirus (PCR) SARS-CoV-2 IgG Ab 06/10/20 06/10/20 06/10/20 05:30 09:38 12:03 WBC RBC Hgb Hct MCV MCH MCHC RDW Lymph % (Auto) Lymph # (Auto) Seg Neutrophils % Seg Neuts % (Manual) Lymphocytes % (Manual) Nucleated RBC % Seg Neutrophils # Seg Neutrophils # Man Lymphocytes # (Manual) Monocytes # (Manual) D-Dimer ABG pH POC ABG pCO2 POC ABG pO2 ABG pO2 ABG HCO3 ABG O2 Saturation ABG Base Excess ABG Hemoglobin ABG Oxyhemoglobin ABG Sodium ABG Potassium ABG Chloride ABG Glucose Oxyhemoglobin Sodium Potassium Chloride Carbon Dioxide BUN Creatinine Glucose POC Glucose 181 H 204 H Lactic Acid Calcium Magnesium Ferritin Total Bilirubin Direct Bilirubin AST ALT Alkaline Phosphatase Lactate Dehydrogenase C-Reactive Protein Total Protein Albumin Triglycerides 738 H Arterial Blood Glucose Arterial Blood Ionized Calcium Urine WBC (Auto) Coronavirus (PCR) SARS-CoV-2 IgG Ab 06/10/20 06/11/20 06/11/20 17:17 00:04 04:38 WBC RBC Hgb Hct MCV MCH MCHC RDW Lymph % (Auto) Lymph # (Auto) Seg Neutrophils % Seg Neuts % (Manual) Lymphocytes % (Manual) Nucleated RBC % Seg Neutrophils # Seg Neutrophils # Man Lymphocytes # (Manual) Monocytes # (Manual) D-Dimer ABG pH 7.479 H POC ABG pCO2 POC ABG pO2 76.7 L ABG pO2 ABG HCO3 ABG O2 Saturation ABG Base Excess ABG Hemoglobin 9.8 L ABG Oxyhemoglobin ABG Sodium 135.8 L ABG Potassium ABG Chloride ABG Glucose 238 H Oxyhemoglobin Sodium Potassium Chloride Carbon Dioxide BUN Creatinine Glucose POC Glucose 156 H 178 H Lactic Acid Calcium Magnesium Ferritin Total Bilirubin Direct Bilirubin AST ALT Alkaline Phosphatase Lactate Dehydrogenase C-Reactive Protein Total Protein Albumin Triglycerides Arterial Blood Glucose 238 H Arterial Blood Ionized Calcium Urine WBC (Auto) Coronavirus (PCR) SARS-CoV-2 IgG Ab 06/11/20 06/11/20 06/11/20 05:21 06:52 11:50 WBC RBC Hgb Hct MCV MCH MCHC RDW Lymph % (Auto) Lymph # (Auto) Seg Neutrophils % Seg Neuts % (Manual) Lymphocytes % (Manual) Nucleated RBC % Seg Neutrophils # Seg Neutrophils # Man Lymphocytes # (Manual) Monocytes # (Manual) D-Dimer ABG pH POC ABG pCO2 POC ABG pO2 ABG pO2 ABG HCO3 ABG O2 Saturation ABG Base Excess ABG Hemoglobin ABG Oxyhemoglobin ABG Sodium ABG Potassium ABG Chloride ABG Glucose Oxyhemoglobin Sodium Potassium Chloride Carbon Dioxide BUN Creatinine Glucose POC Glucose 215 H 187 H Lactic Acid Calcium Magnesium Ferritin Total Bilirubin Direct Bilirubin AST ALT Alkaline Phosphatase Lactate Dehydrogenase C-Reactive Protein Total Protein Albumin Triglycerides 331 H Arterial Blood Glucose Arterial Blood Ionized Calcium Urine WBC (Auto) Coronavirus (PCR) SARS-CoV-2 IgG Ab 06/11/20 06/11/20 06/12/20 17:49 23:35 04:52 WBC RBC Hgb Hct MCV MCH MCHC RDW Lymph % (Auto) Lymph # (Auto) Seg Neutrophils % Seg Neuts % (Manual) Lymphocytes % (Manual) Nucleated RBC % Seg Neutrophils # Seg Neutrophils # Man Lymphocytes # (Manual) Monocytes # (Manual) D-Dimer ABG pH 7.486 H POC ABG pCO2 POC ABG pO2 ABG pO2 ABG HCO3 ABG O2 Saturation ABG Base Excess ABG Hemoglobin 9.4 L ABG Oxyhemoglobin ABG Sodium ABG Potassium 3.2 L ABG Chloride ABG Glucose 209 H Oxyhemoglobin Sodium Potassium Chloride Carbon Dioxide BUN Creatinine Glucose POC Glucose 211 H 200 H Lactic Acid Calcium Magnesium Ferritin Total Bilirubin Direct Bilirubin AST ALT Alkaline Phosphatase Lactate Dehydrogenase C-Reactive Protein Total Protein Albumin Triglycerides Arterial Blood Glucose 209 H Arterial Blood Ionized Calcium Urine WBC (Auto) Coronavirus (PCR) SARS-CoV-2 IgG Ab 06/12/20 06/12/20 06/12/20 05:13 11:47 18:33 WBC RBC Hgb Hct MCV MCH MCHC RDW Lymph % (Auto) Lymph # (Auto) Seg Neutrophils % Seg Neuts % (Manual) Lymphocytes % (Manual) Nucleated RBC % Seg Neutrophils # Seg Neutrophils # Man Lymphocytes # (Manual) Monocytes # (Manual) D-Dimer ABG pH POC ABG pCO2 POC ABG pO2 ABG pO2 ABG HCO3 ABG O2 Saturation ABG Base Excess ABG Hemoglobin ABG Oxyhemoglobin ABG Sodium ABG Potassium ABG Chloride ABG Glucose Oxyhemoglobin Sodium Potassium Chloride Carbon Dioxide BUN Creatinine Glucose POC Glucose 174 H 214 H 194 H Lactic Acid Calcium Magnesium Ferritin Total Bilirubin Direct Bilirubin AST ALT Alkaline Phosphatase Lactate Dehydrogenase C-Reactive Protein Total Protein Albumin Triglycerides Arterial Blood Glucose Arterial Blood Ionized Calcium Urine WBC (Auto) Coronavirus (PCR) SARS-CoV-2 IgG Ab 06/12/20 06/13/20 06/13/20 23:49 05:41 12:30 WBC RBC Hgb Hct MCV MCH MCHC RDW Lymph % (Auto) Lymph # (Auto) Seg Neutrophils % Seg Neuts % (Manual) Lymphocytes % (Manual) Nucleated RBC % Seg Neutrophils # Seg Neutrophils # Man Lymphocytes # (Manual) Monocytes # (Manual) D-Dimer ABG pH POC ABG pCO2 POC ABG pO2 ABG pO2 ABG HCO3 ABG O2 Saturation ABG Base Excess ABG Hemoglobin ABG Oxyhemoglobin ABG Sodium ABG Potassium ABG Chloride ABG Glucose Oxyhemoglobin Sodium Potassium Chloride Carbon Dioxide BUN Creatinine Glucose POC Glucose 160 H 150 H 181 H Lactic Acid Calcium Magnesium Ferritin Total Bilirubin Direct Bilirubin AST ALT Alkaline Phosphatase Lactate Dehydrogenase C-Reactive Protein Total Protein Albumin Triglycerides Arterial Blood Glucose Arterial Blood Ionized Calcium Urine WBC (Auto) Coronavirus (PCR) SARS-CoV-2 IgG Ab 06/13/20 06/13/20 06/13/20 14:14 17:48 23:27 WBC 12.8 H RBC 2.33 L Hgb 8.0 L Hct 23.3 L MCV 100 H MCH 34 H MCHC RDW 15.7 H Lymph % (Auto) Lymph # (Auto) Seg Neutrophils % Seg Neuts % (Manual) 85.0 H Lymphocytes % (Manual) 10.0 L Nucleated RBC % Seg Neutrophils # Seg Neutrophils # Man 10.9 H Lymphocytes # (Manual) Monocytes # (Manual) D-Dimer ABG pH POC ABG pCO2 POC ABG pO2 ABG pO2 ABG HCO3 ABG O2 Saturation ABG Base Excess ABG Hemoglobin ABG Oxyhemoglobin ABG Sodium ABG Potassium ABG Chloride ABG Glucose Oxyhemoglobin Sodium Potassium Chloride Carbon Dioxide BUN Creatinine Glucose POC Glucose 173 H 154 H Lactic Acid Calcium Magnesium Ferritin Total Bilirubin Direct Bilirubin AST ALT Alkaline Phosphatase Lactate Dehydrogenase C-Reactive Protein Total Protein Albumin Triglycerides Arterial Blood Glucose Arterial Blood Ionized Calcium Urine WBC (Auto) Coronavirus (PCR) SARS-CoV-2 IgG Ab 06/14/20 06/14/20 06/14/20 03:58 05:21 07:15 WBC 26.2 H RBC 2.97 L Hgb 9.7 L Hct 29.9 L D MCV 101 H MCH 33 H MCHC RDW 15.3 H Lymph % (Auto) Lymph # (Auto) Seg Neutrophils % Seg Neuts % (Manual) 79.0 H Lymphocytes % (Manual) 5.0 L Nucleated RBC % 3.0 H Seg Neutrophils # Seg Neutrophils # Man 20.7 H Lymphocytes # (Manual) Monocytes # (Manual) 1.3 H D-Dimer ABG pH POC ABG pCO2 51.5 H POC ABG pO2 70.0 L ABG pO2 ABG HCO3 ABG O2 Saturation ABG Base Excess ABG Hemoglobin 10.1 L ABG Oxyhemoglobin ABG Sodium 131.5 L ABG Potassium 3.1 L ABG Chloride 93.0 L ABG Glucose 188 H Oxyhemoglobin Sodium Potassium Chloride Carbon Dioxide BUN Creatinine Glucose POC Glucose 147 H Lactic Acid Calcium Magnesium Ferritin Total Bilirubin Direct Bilirubin AST ALT Alkaline Phosphatase Lactate Dehydrogenase C-Reactive Protein Total Protein Albumin Triglycerides Arterial Blood Glucose 188 H Arterial Blood Ionized Calcium Urine WBC (Auto) Coronavirus (PCR) SARS-CoV-2 IgG Ab 06/14/20 06/14/20 06/14/20 07:15 11:30 11:50 WBC RBC Hgb Hct MCV MCH MCHC RDW Lymph % (Auto) Lymph # (Auto) Seg Neutrophils % Seg Neuts % (Manual) Lymphocytes % (Manual) Nucleated RBC % Seg Neutrophils # Seg Neutrophils # Man Lymphocytes # (Manual) Monocytes # (Manual) D-Dimer ABG pH POC ABG pCO2 POC ABG pO2 ABG pO2 ABG HCO3 ABG O2 Saturation ABG Base Excess ABG Hemoglobin ABG Oxyhemoglobin ABG Sodium ABG Potassium ABG Chloride ABG Glucose Oxyhemoglobin Sodium 135 L Potassium 3.5 L Chloride 90.4 L Carbon Dioxide 38 H BUN Creatinine 0.5 L Glucose 190 H POC Glucose 176 H Lactic Acid Calcium Magnesium Ferritin 1496.0 H Total Bilirubin Direct Bilirubin AST ALT 81 H Alkaline Phosphatase Lactate Dehydrogenase C-Reactive Protein Total Protein Albumin 2.9 L Triglycerides Arterial Blood Glucose Arterial Blood Ionized Calcium Urine WBC (Auto) Coronavirus (PCR) SARS-CoV-2 IgG Ab 06/14/20 06/15/20 06/15/20 23:31 04:00 05:00 WBC RBC Hgb Hct MCV MCH MCHC RDW Lymph % (Auto) Lymph # (Auto) Seg Neutrophils % Seg Neuts % (Manual) Lymphocytes % (Manual) Nucleated RBC % Seg Neutrophils # Seg Neutrophils # Man Lymphocytes # (Manual) Monocytes # (Manual) D-Dimer ABG pH POC ABG pCO2 POC ABG pO2 ABG pO2 ABG HCO3 ABG O2 Saturation ABG Base Excess ABG Hemoglobin ABG Oxyhemoglobin ABG Sodium ABG Potassium ABG Chloride ABG Glucose Oxyhemoglobin Sodium 133 L Potassium Chloride 91.1 L Carbon Dioxide 34 H BUN Creatinine 0.4 L Glucose 159 H POC Glucose 200 H Lactic Acid Calcium Magnesium Ferritin Total Bilirubin 2.00 H Direct Bilirubin AST 47 H ALT 77 H Alkaline Phosphatase Lactate Dehydrogenase C-Reactive Protein Total Protein Albumin 2.6 L Triglycerides 152 H Arterial Blood Glucose Arterial Blood Ionized Calcium Urine WBC (Auto) Coronavirus (PCR) SARS-CoV-2 IgG Ab 06/15/20 06/15/20 06/15/20 05:35 06:27 11:38 WBC RBC Hgb Hct MCV MCH MCHC RDW Lymph % (Auto) Lymph # (Auto) Seg Neutrophils % Seg Neuts % (Manual) Lymphocytes % (Manual) Nucleated RBC % Seg Neutrophils # Seg Neutrophils # Man Lymphocytes # (Manual) Monocytes # (Manual) D-Dimer ABG pH POC ABG pCO2 61.0 H POC ABG pO2 67.9 L ABG pO2 ABG HCO3 ABG O2 Saturation ABG Base Excess ABG Hemoglobin 10.4 L ABG Oxyhemoglobin ABG Sodium 132.7 L ABG Potassium 3.3 L ABG Chloride 92.0 L ABG Glucose 158 H Oxyhemoglobin Sodium Potassium Chloride Carbon Dioxide BUN Creatinine Glucose POC Glucose 148 H 197 H Lactic Acid Calcium Magnesium Ferritin Total Bilirubin Direct Bilirubin AST ALT Alkaline Phosphatase Lactate Dehydrogenase C-Reactive Protein Total Protein Albumin Triglycerides Arterial Blood Glucose 158 H Arterial Blood Ionized Calcium Urine WBC (Auto) Coronavirus (PCR) SARS-CoV-2 IgG Ab 06/15/20 Unknown WBC 20.7 H RBC 2.57 L Hgb 8.9 L Hct 25.8 L MCV 101 H MCH 35 H MCHC 35 H RDW 16.0 H Lymph % (Auto) Lymph # (Auto) Seg Neutrophils % Seg Neuts % (Manual) 83.0 H Lymphocytes % (Manual) 8.0 L Nucleated RBC % Seg Neutrophils # Seg Neutrophils # Man 17.2 H Lymphocytes # (Manual) Monocytes # (Manual) 1.2 H D-Dimer ABG pH POC ABG pCO2 POC ABG pO2 ABG pO2 ABG HCO3 ABG O2 Saturation ABG Base Excess ABG Hemoglobin ABG Oxyhemoglobin ABG Sodium ABG Potassium ABG Chloride ABG Glucose Oxyhemoglobin Sodium Potassium Chloride Carbon Dioxide BUN Creatinine Glucose POC Glucose Lactic Acid Calcium Magnesium Ferritin Total Bilirubin Direct Bilirubin AST ALT Alkaline Phosphatase Lactate Dehydrogenase C-Reactive Protein Total Protein Albumin Triglycerides Arterial Blood Glucose Arterial Blood Ionized Calcium Urine WBC (Auto) Coronavirus (PCR) SARS-CoV-2 IgG Ab Chest x-ray: image reviewed (bilateral infiltyrates are persistent) Allied health notes reviewed: nursing
[2020-06-15] MEDS: MIDAZOLAM 100 MG in SODIUM CHLORIDE 0.9% 80 ML IV SCH (12:59)
--- NOTE | 2020-06-15 16:01 | Progress Note ---
Assessment and Plan Assessment and plan: - Acute hypoxemic respiratory failure; Patient intubated and on vent support -- Novel coronavirus infection with Bilateral pneumonia Coronavirus protocol: IV steroid therapy, IV remdesivir, isolation precautions, contact precautions, prone positioning while in bed, pulmonary toilet. consulted ID --Severe sepsis, due to COVID 19 PNA cont to treat for COVID -- Acute kidney injury (SEN) , likely vasomotor nephropathy Resolved, IV fluids, avoid nephrotoxins -- Alcohol dependence; no episodes of withdrawal symptoms Thiamine, folic acid, multivitamin, CIWA protocol. -- Elevated liver function tests Suspected secondary to alcoholic liver disease. Supportive care, alcohol cessation, patient counseled. -- DVT prophylaxis prophylactic AC with lovenox for elevated D-dimer The high probability of a clinically significant, sudden or life threatening deterioration of the [respiratory] system(s) required my full and direct attention, intervention and personal management. The aggregate critical care time was [32] minutes. This time is in addition to time spent performing reported procedures but includes the following: [x] Data Review and interpretation [x] Patient assessment and monitoring of vital signs [x] Documentation [x] Medication orders and management History Interval history: no new issues Hospitalist Physical - Constitutional Vitals: Temp Pulse Resp BP Pulse Ox 99.8 F H 118 H 13 108/68 86 06/15/20 12:00 06/15/20 15:45 06/15/20 15:45 06/15/20 15:45 06/15/20 15:45 General appearance: Present: no acute distress, well-nourished - EENT Eyes: Present: PERRL, EOM intact ENT: hearing intact, clear oral mucosa, dentition normal - Neck Neck: Present: supple, normal ROM - Respiratory Respiratory effort: normal Respiratory: bilateral: CTA - Cardiovascular Rhythm: regular Heart Sounds: Present: S1 & S2. Absent: gallop, rub - Extremities Extremities: no ischemia, No edema, Full ROM - Abdominal General gastrointestinal: soft, non-tender, non-distended, normal bowel sounds - Integumentary Integumentary: Present: clear, warm, dry - Neurologic Neurologic: CNII-XII intact, moves all extremities Results - Labs CBC & Chem 7: 06/15/20 Unknown 06/15/20 04:00 Labs: Laboratory Last Values WBC 20.7 K/mm3 (4.5-11.0) H 06/15/20 Unknown RBC 2.57 M/mm3 (3.65-5.03) L 06/15/20 Unknown Hgb 8.9 gm/dl (11.8-15.2) L 06/15/20 Unknown Hct 25.8 % (35.5-45.6) L 06/15/20 Unknown MCV 101 fl (84-94) H 06/15/20 Unknown MCH 35 pg (28-32) H 06/15/20 Unknown MCHC 35 % (32-34) H 06/15/20 Unknown RDW 16.0 % (13.2-15.2) H 06/15/20 Unknown Plt Count 263 K/mm3 (140-440) 06/15/20 Unknown Lymph % (Auto) 8.0 % (13.4-35.0) L 05/17/20 05:50 [place] % (Auto) 2.6 % (0.0-7.3) 05/17/20 05:50 Eos % (Auto) 0.0 % (0.0-4.3) 05/17/20 05:50 Baso % (Auto) 0.1 % (0.0-1.8) 05/17/20 05:50 Lymph # (Auto) 0.8 K/mm3 (1.2-5.4) L 05/17/20 05:50 [place] # (Auto) 0.3 K/mm3 (0.0-0.8) 05/17/20 05:50 Eos # (Auto) 0.0 K/mm3 (0.0-0.4) 05/17/20 05:50 Baso # (Auto) 0.0 K/mm3 (0.0-0.1) 05/17/20 05:50 Add Manual Diff Complete 06/15/20 Unknown Total Counted 100 06/15/20 Unknown Seg Neutrophils % Medical Records Analyst 05/22/20 07:53 Seg Neuts % (Manual) 83.0 % (40.0-70.0) H 06/15/20 Unknown Band Neutrophils % 0 % 06/15/20 Unknown Lymphocytes % (Manual) 8.0 % (13.4-35.0) L 06/15/20 Unknown Reactive Lymphs % (Man) 0 % 06/15/20 Unknown Monocytes % (Manual) 6.0 % (0.0-7.3) 06/15/20 Unknown Eosinophils % (Manual) 0 % (0.0-4.3) 06/15/20 Unknown Basophils % (Manual) 0 % (0.0-1.8) 06/15/20 Unknown Metamyelocytes % 3.0 % 06/15/20 Unknown Myelocytes % 0 % 06/15/20 Unknown Promyelocytes % 0 % 06/15/20 Unknown Blast Cells % 0 % 06/15/20 Unknown Nucleated RBC % Not Reportable 06/15/20 Unknown Seg Neutrophils # 8.8 K/mm3 (1.8-7.7) H 05/17/20 05:50 Seg Neutrophils # Man 17.2 K/mm3 (1.8-7.7) H 06/15/20 Unknown Band Neutrophils # 0.0 K/mm3 06/15/20 Unknown Lymphocytes # (Manual) 1.7 K/mm3 (1.2-5.4) 06/15/20 Unknown Abs React Lymphs (Man) 0.0 K/mm3 06/15/20 Unknown Monocytes # (Manual) 1.2 K/mm3 (0.0-0.8) H 06/15/20 Unknown Eosinophils # (Manual) 0.0 K/mm3 (0.0-0.4) 06/15/20 Unknown Basophils # (Manual) 0.0 K/mm3 (0.0-0.1) 06/15/20 Unknown Metamyelocytes # 0.6 K/mm3 06/15/20 Unknown Myelocytes # 0.0 K/mm3 06/15/20 Unknown Promyelocytes # 0.0 K/mm3 06/15/20 Unknown Blast Cells # 0.0 K/mm3 06/15/20 Unknown WBC Morphology Not Reportable 06/15/20 Unknown Hypersegmented Neuts Not Reportable 06/15/20 Unknown Hyposegmented Neuts Not Reportable 06/15/20 Unknown Hypogranular Neuts Not Reportable 06/15/20 Unknown Smudge Cells Not Reportable 06/15/20 Unknown Toxic Granulation Not Reportable 06/15/20 Unknown Toxic Vacuolation Not Reportable 06/15/20 Unknown Dohle Bodies Not Reportable 06/15/20 Unknown Pelger-Huet Anomaly Not Reportable 06/15/20 Unknown Jason Rods Not Reportable 06/15/20 Unknown Platelet Estimate Consistent w auto 06/15/20 Unknown Clumped Platelets Not Reportable 06/15/20 Unknown Plt Clumps, EDTA Not Reportable 06/15/20 Unknown Large Platelets Not Reportable 06/15/20 Unknown Giant Platelets Not Reportable 06/15/20 Unknown Platelet Satelliting Not Reportable 06/15/20 Unknown Plt Morphology Comment Not Reportable 06/15/20 Unknown RBC Morphology Not Reportable 06/15/20 Unknown Dimorphic RBCs Not Reportable 06/15/20 Unknown Polychromasia Few 06/15/20 Unknown Hypochromasia 1+ 06/15/20 Unknown Poikilocytosis Not Reportable 06/15/20 Unknown Anisocytosis 1+ 06/15/20 Unknown Microcytosis Not Reportable 06/15/20 Unknown Macrocytosis 1+ 06/15/20 Unknown Spherocytes Not Reportable 06/15/20 Unknown Pappenheimer Bodies Not Reportable 06/15/20 Unknown Sickle Cells Not Reportable 06/15/20 Unknown Target Cells Not Reportable 06/15/20 Unknown Tear Drop Cells Not Reportable 06/15/20 Unknown Ovalocytes Not Reportable 06/15/20 Unknown Stomatocytes Few 06/14/20 07:15 Helmet Cells Not Reportable 06/15/20 Unknown [place] Bodies Not Reportable 06/15/20 Unknown [place] Rings Not Reportable 06/15/20 Unknown [place] Cells Not Reportable 06/15/20 Unknown Bite Cells Not Reportable 06/15/20 Unknown Crenated Cell Not Reportable 06/15/20 Unknown Elliptocytes Not Reportable 06/15/20 Unknown Acanthocytes (Spur) Not Reportable 06/15/20 Unknown Rouleaux Not Reportable 06/15/20 Unknown Hemoglobin C Crystals Not Reportable 06/15/20 Unknown Schistocytes Few 06/15/20 Unknown Malaria parasites Not Reportable 06/15/20 Unknown Josue Bodies Not Reportable 06/15/20 Unknown Hem Pathologist Commnt No 06/15/20 Unknown PT 14.4 Sec. (12.2-14.9) 06/13/20 14:14 INR 1.13 (0.87-1.13) 06/13/20 14:14 D-Dimer 1887.82 ng/mlDDU (0-234) H 05/20/20 08:16 ABG pH 7.431 (7.320-7.450) 06/15/20 06:27 POC ABG pCO2 61.0 mmHg (32.0-48.0) H 06/15/20 06:27 ABG pCO2 69.6 mm Hg 06/05/20 12:35 POC ABG pO2 67.9 mmHg (83-108) L 06/15/20 06:27 ABG pO2 127.9 mm Hg (80.0-90.0) H 06/05/20 12:35 POC ABG HCO3 39.7 06/15/20 06:27 ABG HCO3 41.1 mmol/L (20.0-26.0) H 06/05/20 12:35 ABG O2 Saturation 98.3 % (95.0-99.0) 06/05/20 12:35 ABG O2 Content 18.2 (0.0-44) 06/05/20 12:35 POC ABG Base Excess 13.3 06/15/20 06:27 ABG Base Excess 13.0 mmol/L (-2.0-3.0) H 06/05/20 12:35 ABG Hemoglobin 10.4 (12.0-17.5) L 06/15/20 06:27 ABG Oxyhemoglobin 86.3 (94-98) L 05/09/20 15:56 ABG Carboxyhemoglobin 2.2 % (0.0-5.0) 06/05/20 12:35 ABG Methemoglobin 0.5 % (0.0-1.5) 06/05/20 12:35 ABG Sodium 132.7 mmol/L (136.0-145.0) L 06/15/20 06:27 ABG Potassium 3.3 mmol/L (3.40-4.50) L 06/15/20 06:27 ABG Chloride 92.0 mmol/L (98-107) L 06/15/20 06:27 ABG Glucose 158 mg/dL (65-95) H 06/15/20 06:27 Oxyhemoglobin 95.6 % (95.0-99.0) 06/05/20 12:35 Carboxyhemoglobin 1.3 (0.5-1.5) 05/09/20 15:56 FiO2 100 06/15/20 06:27 Sodium 133 mmol/L (137-145) L 06/15/20 04:00 Potassium 3.7 mmol/L (3.6-5.0) 06/15/20 04:00 Chloride 91.1 mmol/L (98-107) L 06/15/20 04:00 Carbon Dioxide 34 mmol/L (22-30) H 06/15/20 04:00 Anion Gap 12 mmol/L 06/15/20 04:00 BUN 16 mg/dL (9-20) 06/15/20 04:00 Creatinine 0.4 mg/dL (0.8-1.3) L 06/15/20 04:00 Estimated GFR > 60 ml/min 06/15/20 04:00 BUN/Creatinine Ratio 40 % 06/15/20 04:00 Glucose 159 mg/dL (75-100) H 06/15/20 04:00 POC Glucose 197 mg/dL (70-105) H 06/15/20 11:38 Lactic Acid 1.80 mmol/L (0.7-2.0) 05/09/20 Unknown Calcium 9.3 mg/dL (8.4-10.2) 06/15/20 04:00 Phosphorus 3.10 mg/dL (2.5-4.5) 06/15/20 04:00 Magnesium 1.90 mg/dL (1.7-2.3) 06/15/20 04:00 Ferritin 1496.0 ng/mL (30.0-300.0) H 06/14/20 11:50 Total Bilirubin 2.00 mg/dL (0.1-1.2) H 06/15/20 04:00 Direct Bilirubin 0.6 mg/dL (0-0.2) H 05/11/20 07:30 Indirect Bilirubin 0.9 mg/dL 05/11/20 07:30 AST 47 units/L (5-40) H 06/15/20 04:00 ALT 77 units/L (7-56) H 06/15/20 04:00 Alkaline Phosphatase 96 units/L (35-129) 06/15/20 04:00 Lactate Dehydrogenase 705 units/L (91-180) H 05/20/20 08:16 C-Reactive Protein 3.10 mg/dL (0.00-1.30) H 05/20/20 08:16 Total Protein 6.3 g/dL (6.3-8.2) 06/15/20 04:00 Albumin 2.6 g/dL (3.9-5) L 06/15/20 04:00 Albumin/Globulin Ratio 0.7 % 06/15/20 04:00 Triglycerides 152 mg/dL (2-149) H 06/15/20 05:00 Procalcitonin 0.94 ng/mL (<0.15) 06/14/20 11:50 Arterial Blood Glucose 158 mg/dL (65-95) H 06/15/20 06:27 Arterial Blood Ionized Calcium 4.7 mg/dL (4.6-5.3) 06/15/20 06:27 Urine Color Fauzia (Yellow) 05/10/20 Unknown Urine Turbidity Clear (Clear) 05/10/20 Unknown Urine pH 5.0 (5.0-7.0) 05/10/20 Unknown Ur Specific [place] 1.019 (1.003-1.030) 05/10/20 Unknown Urine Protein 100 mg/dl mg/dL (Negative) 05/10/20 Unknown Urine Glucose (UA) Neg mg/dL (Negative) 05/10/20 Unknown Urine Ketones Neg mg/dL (Negative) 05/10/20 Unknown Urine Blood Lg (Negative) 05/10/20 Unknown Urine Nitrite Neg (Negative) 05/10/20 Unknown Urine Bilirubin Neg (Negative) 05/10/20 Unknown Urine Urobilinogen 2.0 mg/dL (<2.0) 05/10/20 Unknown Ur Leukocyte Esterase Neg (Negative) 05/10/20 Unknown Urine WBC (Auto) 11.0 /HPF (0.0-6.0) H 05/10/20 Unknown Urine RBC (Auto) 2.0 /HPF (0.0-6.0) 05/10/20 Unknown U Epithel Cells (Auto) 1.0 /HPF (0-13.0) 05/10/20 Unknown Urine Bacteria (Auto) 1+ /HPF (Negative) 05/10/20 Unknown Urine Mucus Few /HPF 05/10/20 Unknown Plasma/Serum Alcohol < 0.01 % (0-0.07) 05/09/20 14:20 Coronavirus (PCR) Positive (Negative) A 05/10/20 Unknown SARS-CoV-2 IgG Ab Reactive (NonReactive) A 05/11/20 07:30 Microbiology: Microbiology 06/14/20 14:39 Peripheral/Venous Blood Culture - Preliminary NO GROWTH AFTER 24 HOURS 06/14/20 14:39 Peripheral/Venous Blood Culture - Preliminary NO GROWTH AFTER 24 HOURS - Diagnostic Impressions Diagnostic Impressions: Echocardiogram 05/20/20 13:02 Transthoracic Echocardiogram Indication: CHF BP: 97/73 Conclusions *The study quality is technically very difficult and limited. *The left ventricular chamber size, wall thickness and systolic function are within normal limits. There are no wall motion abnormalities observed. Ejection fraction is normal. *The estimated ejection fraction is 60-65%. *The pericardium appears normal. Findings Procedure Info: The study quality is technically difficult. Left Ventricle: The left ventricular chamber size, wall thickness and systolic function are within normal limits. There are no wall motion abnormalities observed. Ejection fraction is normal. The estimated ejection fraction is 60-65%. Abnormal left ventricular diastolic filling is observed, consistent with impaired relaxation. Left Atrium: The left atrium is normal in size with no visual thrombus identified. Right Ventricle: The right ventricle is not well visualized. Right Atrium: The right atrium is not well visualized. Aortic Valve: The aortic valve is trileaflet. The leaflets are thin with normal excursion. There is no aortic stenosis or regurgitation present. Mitral Valve: The mitral valve appears normal in structure and function. Tricuspid Valve: The tricuspid valve appears normal in structure and function. Unable to estimate the right ventricular systolic pressure. Pulmonic Valve: The pulmonic valve is not well visualized. There is no evidence of pulmonic regurgitation. There is no pulmonic stenosis. Pericardium: The pericardium appears normal. Pulmonary Artery: The main pulmonary artery is not well visualized. Venous: The inferior vena cava appears normal in size. Measurements Chambers 2D Name Value Normal Range IVSd (2D) 0.83 cm (0.6 - 1.1) LVPWd (2D) 0.83 cm (0.6 - 1.1) LVIDd (2D) 3.88 cm (3.7 - 5.6) LVIDs (2D) 2.46 cm (2 - 3.8) LV FS (2D) 36.52 % - EF Teichholz (2D) 66.97 % - Ao root diameter (2D) 3.47 cm (2 - 3.7) Volumes/Mass Name Value Normal Range LA ESV SP 4CH (A/L) 22.4 ml - LA ESV SP 2CH (A/L) 22.89 ml - LA ESV BP (A/L) 23.06 ml - LA ESV SP 4CH (MOD) 21.09 ml - LA ESV SP 2CH (MOD) 22.44 ml - Diastolic/Systolic Function Name Value Normal Range MV E-wave Vmax 0.48 m/sec - MV deceleration time 156.3 msec - MV A-wave Vmax 0.59 m/sec - MV E:A ratio 0.81 ratio - Aortic Valve Name Value Normal Range AV Vmax 0.97 m/sec - AV VTI 14.49 cm - AV peak gradient 3.73 mmHg - AV mean gradient 1.89 mmHg - LVOT diameter 2.09 cm - LVOT Vmax 0.72 m/sec - LVOT VTI 10.21 cm - LVOT peak gradient 2.05 mmHg - LVOT mean gradient 1.03 mmHg - SV LVOT 35.17 ml - NINA (continuity Vmax) 2.55 cm2 - INNA (continuity VTI) 2.43 cm2 - Tricuspid Valve Name Value Normal Range TV E-wave Vmax 0.37 m/sec - Pulmonic Valve/Qp:Qs Name Value Normal Range PV Vmax 0.72 m/sec - PV peak gradient 2.06 mmHg - RVOT Vmax 0.85 m/sec - RVOT VTI 9.89 cm - RVOT peak gradient 2.9 mmHg - PV acceleration time 72.31 msec - Cantor/IV: Voiding Method Condom Catheter IV Catheter Type [Right Upper PICC Line arm] IV Catheter Type [Right CVL Internal Jugular] IV Catheter Type [Right Peripheral IV Forearm] IV Catheter Type [Left Forearm Peripheral IV ] IV Catheter Type [Left Wrist] INT / Saline Lock IV Catheter Type [Right Hand] INT / Saline Lock IV Catheter Type [Left Hand] INT / Saline Lock IV Catheter Type [Left Peripheral IV Antecubital] Active Medications - Current Medications Current Medications: Generic Name Dose Route Start Last Admin Trade Name Freq PRN Reason Stop Dose Admin Acetaminophen 650 mg 06/14/20 10:07 06/14/20 19:02 Tylenol FEEDTUBE 650 mg Q4H PRN Administration Pain, Mild (1-3) Albuterol/Ipratropium 1 ampul 06/14/20 20:00 06/15/20 08:08 Duoneb *Not For Prn Use* IH 06/19/20 08:01 1 ampul BIDRT DESIRE Administration Alprazolam 0.25 mg 05/20/20 17:53 06/08/20 08:29 Xanax PO 0.25 mg Q8H PRN Administration Anxiety Lipase/Protease/Amylase 1 each 05/22/20 13:01 Pancreaze 10,500 Unit FEEDTUBE PRN PRN For Clogged Feeding Tube Bisacodyl 10 mg 06/07/20 10:00 06/15/20 10:10 Dulcolax VA 10 mg QDAY DESIRE Administration Docusate Sodium 100 mg 05/28/20 14:00 06/15/20 10:05 Colace PO 100 mg BID DESIRE Administration Enoxaparin Sodium 110 mg 05/10/20 22:00 06/15/20 10:06 Enoxaparin 1 mg/kg (110 mg) 110 mg SUB-Q Administration Q12HR [facility] Protocol Famotidine 20 mg 05/25/20 22:00 06/15/20 10:05 Pepcid PO 20 mg BID DESIRE Administration Fentanyl 50 mcg 06/09/20 13:53 Sublimaze IV Q10MIN PRN ANALGESIA Folic Acid 1 mg 05/09/20 15:36 06/15/20 10:05 Folvite PO 1 mg QDAY DESIRE Administration Hydrophilic Ointment 1 applic 05/21/20 20:33 Vaseline Lip Therapy TP Q2HR PRN Dry Lips Midazolam HCl 100 mg/ Sodium 100 mls @ 2 mls/hr 06/02/20 14:00 06/15/20 12:59 Chloride IV 5 mg/hr TITR DESIRE 5 mls/hr Administration Protocol 2 MG/HR Norepinephrine 4 mg in 250 mls @ 7.5 mls/hr 06/04/20 16:00 06/15/20 13:12 Levophed Drip 4 Mg/Ns 250 Ml IV 6 mcg/min TITR DESIRE 22.5 mls/hr Administration Protocol 2 MCG/MIN Propofol 500 mg in 50 mls @ 3.309 mls/hr 06/08/20 11:00 06/15/20 14:57 Propofol IV 45 mcg/kg/min TITR DESIRE 29.781 mls/hr Administration Protocol 5 MCG/KG/MIN Fentanyl Citrate 2,000 mcg in 100 mls @ 5.32 mls/hr 06/09/20 14:00 06/15/20 13:05 Fentanyl Drip Premix IV 4 mcg/kg/hr TITR DESIRE 21.28 mls/hr Administration Protocol 1 MCG/KG/HR Vasopressin 20 unit/ Sodium 101 mls @ 9.09 mls/hr 06/09/20 18:00 Chloride IV TITR DESIRE Protocol 0.03 UNITS/MIN Insulin Human Lispro 0 unit 05/29/20 14:00 06/15/20 12:04 Humalog SUB-Q 2 unit Q6H DESIRE Administration Protocol Methylprednisolone Sodium Succinate 40 mg 05/20/20 18:00 06/15/20 05:32 Solu-Medrol IV 40 mg Q12H DESIRE Administration Metoprolol Tartrate 5 mg 05/20/20 17:52 06/14/20 08:19 Metoprolol IV 5 mg Q6HR PRN Administration Tachyarrhythmias Midazolam HCl 2 mg 06/02/20 13:11 06/14/20 07:50 Versed IV 2 mg Q10MIN PRN Administration Sedation Multi-Ingred Cream/Lotion/Oil/Oint 1 applic 05/21/20 20:33 Artificial Tears Ophth Oint OU Q4HR PRN Dry Eye(s) Polyethylene Glycol 17 gm 05/28/20 22:00 06/14/20 21:13 Miralax 3350 PO 17 gm QHS DESIRE Administration Quetiapine Fumarate 300 mg 06/10/20 22:00 06/15/20 10:06 Seroquel PO 300 mg BID DESIRE Administration Senna 17.2 mg 06/07/20 10:00 06/15/20 10:05 Senokot PO 17.2 mg BID DESIRE Administration Simple Syrup 15 ml 05/22/20 13:01 Simple Syrup FEEDTUBE PRN PRN Hypoglycemia Simple Syrup 30 ml 05/22/20 13:01 Simple Syrup FEEDTUBE PRN PRN Hypoglycemia Sodium Bicarbonate 325 mg 05/22/20 13:01 Sodium Bicarbonate FEEDTUBE PRN PRN For Clogged Feeding Tube Sodium Chloride 10 ml 05/09/20 22:00 06/15/20 10:00 Sodium Chloride Flush Syringe 10 Ml IV 10 ml BID DESIRE Administration Nutrition/Malnutrition Assess - Dietary Evaluation Nutrition/Malnutrition Findings: Nutrition Notes Start: 05/17/20 14:10 Freq: Status: Active Protocol: Document 06/15/20 14:11 EN (Rec: 06/15/20 14:17 EN [id number]) Co-Sign 06/15/20 14:11 LM Nutrition Notes Initial or Follow up Reassessment Current Diagnosis Sepsis,Respiratory Failure Other Pertinent Diagnosis Bilat pneu, COVID-19 (+), EtOH dependence Current Diet Vital HP at 75 ml/hr (goal rate) Labs/Tests Na 133 Glu 159 Pertinent Medications Propofol Norepinephrine Fentanyl Solu-medrol Height 6 ft Weight 106.3 kg [place] Body Weight (kg) 80.90 BMI 31.8 Weight change and time frame Wt change noted Weight Status Obese Subjective/Other Information F/u for TF tolerance. Pt tolerating TF at goal rate. Per RN, pt has increased yellow oral secretions. RN requesting to lower TF rate. Percent of energy/protein needs met: 96%/98% Burn Absent Trauma Absent GI Symptoms None Current % PO Negligible Minimum of two criteria No physical signs of malnutrition #1 Nutrition Diagnosis Inadequate oral intake Diagnosis Progress(for reassessment Continues documentation) Is patient on ventilator? Yes Is Patient Ambulatory and/or Out of Bed No REE-([facility]-confined to bed) 2350.824 Kcal/Kg value to use for calculation 17 Approximate Energy Requirements Using 1807 kcal/Kg Calculation Used for Recommendations Kcal/kg Additional Notes Pro needs >2g/kg IBW: at least 162g/day Fluid needs 1ml/kcal Nutrition Intervention Change Diet Order: Continue TF with rate change Nutrition Support: Vital HP at 65ml/hr with 50ml water flush q4h. For hyponatremia, flush 50 ml q6h Kcal 1,560 Protein (gm) 136 Fluid (mL) 1,304 Goal #1 TF tolerance Goal #2 TF (at goal rate) to meet at least 75% energy and pro needs Anticipated Discharge Needs: Unable to identify at this time Follow-Up By: 06/17/20 Additional Comments Follow for TF rate/tolerance and oral secretion
[2020-06-15] MEDS: POLYETHYLENE GLYCOL 3350 17 GM POWDER PO SCH (21:51)
[2020-06-16] MEDS: INSULIN LISPRO 100 UNIT/ML VIAL 3 mL SUB-Q SCH ×4 (00:15→18:41)
[2020-06-16] MEDS: PROPOFOL 500 MG/50 ML IV SCH ×10 (00:36→22:25)
[2020-06-16] MEDS: NORepinephrine/NS 4 MG-250 ML 4 MG/250 ML BAG IV SCH ×5 (03:40→23:38)
[2020-06-16] MEDS: fentaNYL DRIP Premix 2,000 MCG/100 ML BAG IV SCH ×4 (04:28→22:57)
[2020-06-16] MEDS: methylPREDNISolone Sod Succinate 40 MG/1 ML INJ IV SCH ×2 (05:29→17:24)
[2020-06-16 05:43] LABS: Hematocrit 20.7 % (35.5-45.6); Hemoglobin 7.6 gm/dl (11.8-15.2); Mean Corpuscular HGB Conc 37 % (32-34); Mean Corpuscular Volume 102 fl (84-94); Platelet Count 208 K/mm3 (140-440); Red Blood Count 2.03 M/mm3 (3.65-5.03); Red Cell Distribution Width 16.2 % (13.2-15.2)
[2020-06-16 05:48] LABS: Basophils % (Auto) 0.3 % (0.0-1.8); Lymphocytes % (Auto) 4.4 % (13.4-35.0); Monocytes % (Auto) 3.6 % (0.0-7.3)
[2020-06-16 05:49] LABS: Lymphocytes # (Auto) 0.6 K/mm3 (1.2-5.4); Monocytes # (Auto) 0.5 K/mm3 (0.0-0.8)
[2020-06-16 06:30] LABS: Blood Urea Nitrogen 20 mg/dL (9-20); Calcium 8.4 mg/dL (8.4-10.2); Hemolysis Index 17
[2020-06-16 06:35] LABS: BUN/Creatinine Ratio 67
[2020-06-16] MEDS: IPRATROPIUM/ALBUTEROL SULFATE 3 ML AMPUL.NEB IH SCH ×2 (07:36→21:16)
[2020-06-16] MEDS: MIDAZOLAM 100 MG in SODIUM CHLORIDE 0.9% 80 ML IV SCH (08:03)
--- NOTE | 2020-06-16 09:35 | Progress Note ---
Assessment and Plan Assessment and plan: - Acute hypoxemic respiratory failure; Patient intubated and on vent support --Severe COVID-19 bilateral pneumonia Coronavirus protocol: IV steroid therapy, completed remdesivir, isolation precautions, contact precautions, prone positioning while in bed, pulmonary toilet. ID following SARS CoV-2 IgG positive patient is NOT a candidate for COVID convalescent plasma --Severe sepsis/septic shock, due to COVID 19 PNA cont pressors as needed -- Acute kidney injury (SEN) , likely vasomotor nephropathy Resolved, IV fluids, avoid nephrotoxins -- Alcohol dependence; no episodes of withdrawal symptoms Thiamine, folic acid, multivitamin, CIWA protocol. -- Elevated liver function tests Suspected secondary to alcoholic liver disease. Supportive care, alcohol cessat ion, patient counseled. -- DVT prophylaxis On therapeutic Lovenox 06/16/2020. Patient currently on mechanical ventilation with AC mode rate 30, tidal volume 500, FiO2 70% and PEEP of 16. Continue anticoagulation with Lovenox 110 milligrams subcu every 12 hours. Wean sedation of fentanyl/Versed a s needed. Currently with IV steroids of Solu-Medrol 40 mg IV every 12 hours. Patient will likely need tracheostomy per pulmonary recommendations. Continue pressors to maintain MAP > 65. The high probability of a clinically significant, sudden or life threatening deterioration of the [respiratory] system(s) required my full and direct attention, intervention and personal management. The aggregate critical care time was [32] minutes. This time is in addition to time spent performing reported procedures but includes the following: [x] Data Review and interpretation [x] Patient assessment and monitoring of vital signs [x] Documentation [x] Medication orders and management History Interval history: no new issues Hospitalist Physical - Constitutional Vitals: Temp Pulse Resp BP Pulse Ox 98.0 F 112 H 30 H 121/67 96 06/16/20 04:00 06/16/20 08:10 06/16/20 08:08 06/16/20 08:10 06/16/20 08:10 General appearance: Present: no acute distress, well-nourished - EENT Eyes: Present: PERRL, EOM intact ENT: hearing intact, clear oral mucosa, dentition normal - Neck Neck: Present: supple, normal ROM - Respiratory Respiratory effort: normal Respiratory: bilateral: CTA - Cardiovascular Rhythm: regular Heart Sounds: Present: S1 & S2. Absent: gallop, rub - Extremities Extremities: no ischemia, No edema, Full ROM - Abdominal General gastrointestinal: soft, non-tender, non-distended, normal bowel sounds - Integumentary Integumentary: Present: clear, warm, dry - Neurologic Neurologic: CNII-XII intact, moves all extremities Results - Labs CBC & Chem 7: 06/16/20 04:00 06/16/20 04:00 Labs: Laboratory Last Values WBC 13.8 K/mm3 (4.5-11.0) H 06/16/20 04:00 RBC 2.03 M/mm3 (3.65-5.03) L 06/16/20 04:00 Hgb 7.6 gm/dl (11.8-15.2) L 06/16/20 04:00 Hct 20.7 % (35.5-45.6) L 06/16/20 04:00 MCV 102 fl (84-94) H 06/16/20 04:00 MCH 37 pg (28-32) H 06/16/20 04:00 MCHC 37 % (32-34) H 06/16/20 04:00 RDW 16.2 % (13.2-15.2) H 06/16/20 04:00 Plt Count 208 K/mm3 (140-440) 06/16/20 04:00 Lymph % (Auto) 4.4 % (13.4-35.0) L 06/16/20 04:00 [place] % (Auto) 3.6 % (0.0-7.3) 06/16/20 04:00 Eos % (Auto) 0.0 % (0.0-4.3) 06/16/20 04:00 Baso % (Auto) 0.3 % (0.0-1.8) 06/16/20 04:00 Lymph # (Auto) 0.6 K/mm3 (1.2-5.4) L 06/16/20 04:00 [place] # (Auto) 0.5 K/mm3 (0.0-0.8) 06/16/20 04:00 Eos # (Auto) 0.0 K/mm3 (0.0-0.4) 06/16/20 04:00 Baso # (Auto) 0.0 K/mm3 (0.0-0.1) 06/16/20 04:00 Add Manual Diff Complete 06/15/20 Unknown Total Counted 100 06/15/20 Unknown Seg Neutrophils % Rn Utilization Management Um 06/16/20 04:00 Seg Neuts % (Manual) 83.0 % (40.0-70.0) H 06/15/20 Unknown Band Neutrophils % 0 % 06/15/20 Unknown Lymphocytes % (Manual) 8.0 % (13.4-35.0) L 06/15/20 Unknown Reactive Lymphs % (Man) 0 % 06/15/20 Unknown Monocytes % (Manual) 6.0 % (0.0-7.3) 06/15/20 Unknown Eosinophils % (Manual) 0 % (0.0-4.3) 06/15/20 Unknown Basophils % (Manual) 0 % (0.0-1.8) 06/15/20 Unknown Metamyelocytes % 3.0 % 06/15/20 Unknown Myelocytes % 0 % 06/15/20 Unknown Promyelocytes % 0 % 06/15/20 Unknown Blast Cells % 0 % 06/15/20 Unknown Nucleated RBC % Not Reportable 06/15/20 Unknown Seg Neutrophils # 12.7 K/mm3 (1.8-7.7) H 06/16/20 04:00 Seg Neutrophils # Man 17.2 K/mm3 (1.8-7.7) H 06/15/20 Unknown Band Neutrophils # 0.0 K/mm3 06/15/20 Unknown Lymphocytes # (Manual) 1.7 K/mm3 (1.2-5.4) 06/15/20 Unknown Abs React Lymphs (Man) 0.0 K/mm3 06/15/20 Unknown Monocytes # (Manual) 1.2 K/mm3 (0.0-0.8) H 06/15/20 Unknown Eosinophils # (Manual) 0.0 K/mm3 (0.0-0.4) 06/15/20 Unknown Basophils # (Manual) 0.0 K/mm3 (0.0-0.1) 06/15/20 Unknown Metamyelocytes # 0.6 K/mm3 06/15/20 Unknown Myelocytes # 0.0 K/mm3 06/15/20 Unknown Promyelocytes # 0.0 K/mm3 06/15/20 Unknown Blast Cells # 0.0 K/mm3 06/15/20 Unknown WBC Morphology Not Reportable 06/15/20 Unknown Hypersegmented Neuts Not Reportable 06/15/20 Unknown Hyposegmented Neuts Not Reportable 06/15/20 Unknown Hypogranular Neuts Not Reportable 06/15/20 Unknown Smudge Cells Not Reportable 06/15/20 Unknown Toxic Granulation Not Reportable 06/15/20 Unknown Toxic Vacuolation Not Reportable 06/15/20 Unknown Dohle Bodies Not Reportable 06/15/20 Unknown Pelger-Huet Anomaly Not Reportable 06/15/20 Unknown Jason Rods Not Reportable 06/15/20 Unknown Platelet Estimate Consistent w auto 06/15/20 Unknown Clumped Platelets Not Reportable 06/15/20 Unknown Plt Clumps, EDTA Not Reportable 06/15/20 Unknown Large Platelets Not Reportable 06/15/20 Unknown Giant Platelets Not Reportable 06/15/20 Unknown Platelet Satelliting Not Reportable 06/15/20 Unknown Plt Morphology Comment Not Reportable 06/15/20 Unknown RBC Morphology Not Reportable 06/15/20 Unknown Dimorphic RBCs Not Reportable 06/15/20 Unknown Polychromasia Few 06/15/20 Unknown Hypochromasia 1+ 06/15/20 Unknown Poikilocytosis Not Reportable 06/15/20 Unknown Anisocytosis 1+ 06/15/20 Unknown Microcytosis Not Reportable 06/15/20 Unknown Macrocytosis 1+ 06/15/20 Unknown Spherocytes Not Reportable 06/15/20 Unknown Pappenheimer Bodies Not Reportable 06/15/20 Unknown Sickle Cells Not Reportable 06/15/20 Unknown Target Cells Not Reportable 06/15/20 Unknown Tear Drop Cells Not Reportable 06/15/20 Unknown Ovalocytes Not Reportable 06/15/20 Unknown Stomatocytes Few 06/14/20 07:15 Helmet Cells Not Reportable 06/15/20 Unknown Sinclair-Haines Bodies Not Reportable 06/15/20 Unknown [place] Rings Not Reportable 06/15/20 Unknown Izabella Cells Not Reportable 06/15/20 Unknown Bite Cells Not Reportable 06/15/20 Unknown Crenated Cell Not Reportable 06/15/20 Unknown Elliptocytes Not Reportable 06/15/20 Unknown Acanthocytes (Spur) Not Reportable 06/15/20 Unknown Rouleaux Not Reportable 06/15/20 Unknown Hemoglobin C Crystals Not Reportable 06/15/20 Unknown Schistocytes Few 06/15/20 Unknown Malaria parasites Not Reportable 06/15/20 Unknown Josue Bodies Not Reportable 06/15/20 Unknown Hem Pathologist Commnt No 06/15/20 Unknown PT 14.4 Sec. (12.2-14.9) 06/13/20 14:14 INR 1.13 (0.87-1.13) 06/13/20 14:14 D-Dimer 1887.82 ng/mlDDU (0-234) H 05/20/20 08:16 ABG pH 7.431 (7.320-7.450) 06/15/20 06:27 POC ABG pCO2 61.0 mmHg (32.0-48.0) H 06/15/20 06:27 ABG pCO2 69.6 mm Hg 06/05/20 12:35 POC ABG pO2 67.9 mmHg (83-108) L 06/15/20 06:27 ABG pO2 127.9 mm Hg (80.0-90.0) H 06/05/20 12:35 POC ABG HCO3 39.7 06/15/20 06:27 ABG HCO3 41.1 mmol/L (20.0-26.0) H 06/05/20 12:35 ABG O2 Saturation 98.3 % (95.0-99.0) 06/05/20 12:35 ABG O2 Content 18.2 (0.0-44) 06/05/20 12:35 POC ABG Base Excess 13.3 06/15/20 06:27 ABG Base Excess 13.0 mmol/L (-2.0-3.0) H 06/05/20 12:35 ABG Hemoglobin 10.4 (12.0-17.5) L 06/15/20 06:27 ABG Oxyhemoglobin 86.3 (94-98) L 05/09/20 15:56 ABG Carboxyhemoglobin 2.2 % (0.0-5.0) 06/05/20 12:35 ABG Methemoglobin 0.5 % (0.0-1.5) 06/05/20 12:35 ABG Sodium 132.7 mmol/L (136.0-145.0) L 06/15/20 06:27 ABG Potassium 3.3 mmol/L (3.40-4.50) L 06/15/20 06:27 ABG Chloride 92.0 mmol/L (98-107) L 06/15/20 06:27 ABG Glucose 158 mg/dL (65-95) H 06/15/20 06:27 Oxyhemoglobin 95.6 % (95.0-99.0) 06/05/20 12:35 Carboxyhemoglobin 1.3 (0.5-1.5) 05/09/20 15:56 FiO2 100 06/15/20 06:27 Sodium 130 mmol/L (137-145) L 06/16/20 04:00 Potassium 3.8 mmol/L (3.6-5.0) 06/16/20 04:00 Chloride 88.9 mmol/L (98-107) L 06/16/20 04:00 Carbon Dioxide 36 mmol/L (22-30) H 06/16/20 04:00 Anion Gap 9 mmol/L 06/16/20 04:00 BUN 20 mg/dL (9-20) 06/16/20 04:00 Creatinine 0.3 mg/dL (0.8-1.3) L 06/16/20 04:00 Estimated GFR > 60 ml/min 06/16/20 04:00 BUN/Creatinine Ratio 67 % 06/16/20 04:00 Glucose 276 mg/dL (75-100) H 06/16/20 04:00 POC Glucose 250 mg/dL (70-105) H 06/16/20 05:22 Lactic Acid 1.80 mmol/L (0.7-2.0) 05/09/20 Unknown Calcium 8.4 mg/dL (8.4-10.2) 06/16/20 04:00 Phosphorus 3.10 mg/dL (2.5-4.5) 06/15/20 04:00 Magnesium 1.90 mg/dL (1.7-2.3) 06/15/20 04:00 Ferritin 1496.0 ng/mL (30.0-300.0) H 06/14/20 11:50 Total Bilirubin 2.00 mg/dL (0.1-1.2) H 06/15/20 04:00 Direct Bilirubin 0.6 mg/dL (0-0.2) H 05/11/20 07:30 Indirect Bilirubin 0.9 mg/dL 05/11/20 07:30 AST 47 units/L (5-40) H 06/15/20 04:00 ALT 77 units/L (7-56) H 06/15/20 04:00 Alkaline Phosphatase 96 units/L (35-129) 06/15/20 04:00 Lactate Dehydrogenase 705 units/L (91-180) H 05/20/20 08:16 C-Reactive Protein 3.10 mg/dL (0.00-1.30) H 05/20/20 08:16 Total Protein 6.3 g/dL (6.3-8.2) 06/15/20 04:00 Albumin 2.6 g/dL (3.9-5) L 06/15/20 04:00 Albumin/Globulin Ratio 0.7 % 06/15/20 04:00 Triglycerides 152 mg/dL (2-149) H 06/15/20 05:00 Procalcitonin 0.94 ng/mL (<0.15) 06/14/20 11:50 Arterial Blood Glucose 158 mg/dL (65-95) H 06/15/20 06:27 Arterial Blood Ionized Calcium 4.7 mg/dL (4.6-5.3) 06/15/20 06:27 Urine Color Fauzia (Yellow) 05/10/20 Unknown Urine Turbidity Clear (Clear) 05/10/20 Unknown Urine pH 5.0 (5.0-7.0) 05/10/20 Unknown Ur Specific [place] 1.019 (1.003-1.030) 05/10/20 Unknown Urine Protein 100 mg/dl mg/dL (Negative) 05/10/20 Unknown Urine Glucose (UA) Neg mg/dL (Negative) 05/10/20 Unknown Urine Ketones Neg mg/dL (Negative) 05/10/20 Unknown Urine Blood Lg (Negative) 05/10/20 Unknown Urine Nitrite Neg (Negative) 05/10/20 Unknown Urine Bilirubin Neg (Negative) 05/10/20 Unknown Urine Urobilinogen 2.0 mg/dL (<2.0) 05/10/20 Unknown Ur Leukocyte Esterase Neg (Negative) 05/10/20 Unknown Urine WBC (Auto) 11.0 /HPF (0.0-6.0) H 05/10/20 Unknown Urine RBC (Auto) 2.0 /HPF (0.0-6.0) 05/10/20 Unknown U Epithel Cells (Auto) 1.0 /HPF (0-13.0) 05/10/20 Unknown Urine Bacteria (Auto) 1+ /HPF (Negative) 05/10/20 Unknown Urine Mucus Few /HPF 05/10/20 Unknown Plasma/Serum Alcohol < 0.01 % (0-0.07) 05/09/20 14:20 Coronavirus (PCR) Positive (Negative) A 05/10/20 Unknown SARS-CoV-2 IgG Ab Reactive (NonReactive) A 05/11/20 07:30 Microbiology: Microbiology 06/14/20 14:39 Peripheral/Venous Blood Culture - Preliminary NO GROWTH AFTER 24 HOURS 06/14/20 14:39 Peripheral/Venous Blood Culture - Preliminary NO GROWTH AFTER 24 HOURS - Diagnostic Impressions Diagnostic Impressions: Echocardiogram 05/20/20 13:02 Transthoracic Echocardiogram Indication: CHF BP: 97/73 Conclusions *The study quality is technically very difficult and limited. *The left ventricular chamber size, wall thickness and systolic function are within normal limits. There are no wall motion abnormalities observed. Ejection fraction is normal. *The estimated ejection fraction is 60-65%. *The pericardium appears normal. Findings Procedure Info: The study quality is technically difficult. Left Ventricle: The left ventricular chamber size, wall thickness and systolic function are within normal limits. There are no wall motion abnormalities observed. Ejection fraction is normal. The estimated ejection fraction is 60-65%. Abnormal left ventricular diastolic filling is observed, consistent with impaired relaxation. Left Atrium: The left atrium is normal in size with no visual thrombus identified. Right Ventricle: The right ventricle is not well visualized. Right Atrium: The right atrium is not well visualized. Aortic Valve: The aortic valve is trileaflet. The leaflets are thin with normal excursion. There is no aortic stenosis or regurgitation present. Mitral Valve: The mitral valve appears normal in structure and function. Tricuspid Valve: The tricuspid valve appears normal in structure and function. Unable to estimate the right ventricular systolic pressure. Pulmonic Valve: The pulmonic valve is not well visualized. There is no evidence of pulmonic regurgitation. There is no pulmonic stenosis. Pericardium: The pericardium appears normal. Pulmonary Artery: The main pulmonary artery is not well visualized. Venous: The inferior vena cava appears normal in size. Measurements Chambers 2D Name Value Normal Range IVSd (2D) 0.83 cm (0.6 - 1.1) LVPWd (2D) 0.83 cm (0.6 - 1.1) LVIDd (2D) 3.88 cm (3.7 - 5.6) LVIDs (2D) 2.46 cm (2 - 3.8) LV FS (2D) 36.52 % - EF Teichholz (2D) 66.97 % - Ao root diameter (2D) 3.47 cm (2 - 3.7) Volumes/Mass Name Value Normal Range LA ESV SP 4CH (A/L) 22.4 ml - LA ESV SP 2CH (A/L) 22.89 ml - LA ESV BP (A/L) 23.06 ml - LA ESV SP 4CH (MOD) 21.09 ml - LA ESV SP 2CH (MOD) 22.44 ml - Diastolic/Systolic Function Name Value Normal Range MV E-wave Vmax 0.48 m/sec - MV deceleration time 156.3 msec - MV A-wave Vmax 0.59 m/sec - MV E:A ratio 0.81 ratio - Aortic Valve Name Value Normal Range AV Vmax 0.97 m/sec - AV VTI 14.49 cm - AV peak gradient 3.73 mmHg - AV mean gradient 1.89 mmHg - LVOT diameter 2.09 cm - LVOT Vmax 0.72 m/sec - LVOT VTI 10.21 cm - LVOT peak gradient 2.05 mmHg - LVOT mean gradient 1.03 mmHg - SV LVOT 35.17 ml - INNA (continuity Vmax) 2.55 cm2 - INNA (continuity VTI) 2.43 cm2 - Tricuspid Valve Name Value Normal Range TV E-wave Vmax 0.37 m/sec - Pulmonic Valve/Qp:Qs Name Value Normal Range PV Vmax 0.72 m/sec - PV peak gradient 2.06 mmHg - RVOT Vmax 0.85 m/sec - RVOT VTI 9.89 cm - RVOT peak gradient 2.9 mmHg - PV acceleration time 72.31 msec - Cantor/IV: Voiding Method Condom Catheter IV Catheter Type [Right Upper PICC Line arm] IV Catheter Type [Right CVL Internal Jugular] IV Catheter Type [Right Peripheral IV Forearm] IV Catheter Type [Left Forearm Peripheral IV ] IV Catheter Type [Left Wrist] INT / Saline Lock IV Catheter Type [Right Hand] INT / Saline Lock IV Catheter Type [Left Hand] INT / Saline Lock IV Catheter Type [Left Peripheral IV Antecubital] Active Medications - Current Medications Current Medications: Generic Name Dose Route Start Last Admin Trade Name Freq PRN Reason Stop Dose Admin Acetaminophen 650 mg 06/14/20 10:07 06/14/20 19:02 Tylenol FEEDTUBE 650 mg Q4H PRN Administration Pain, Mild (1-3) Albuterol/Ipratropium 1 ampul 06/14/20 20:00 06/16/20 07:36 Duoneb *Not For Prn Use* IH 06/19/20 08:01 1 ampul BIDRT DESIRE Administration Alprazolam 0.25 mg 05/20/20 17:53 06/08/20 08:29 Xanax PO 0.25 mg Q8H PRN Administration Anxiety Lipase/Protease/Amylase 1 each 05/22/20 13:01 Pancreazcarly [place] 10,500 Unit FEEDTUBE PRN PRN For Clogged Feeding Tube Bisacodyl 10 mg 06/07/20 10:00 06/15/20 10:10 Dulcolax MT 10 mg QDAY DESIRE Administration Docusate Sodium 100 mg 05/28/20 14:00 06/15/20 21:51 Colace PO 100 mg BID DESIRE Administration Enoxaparin Sodium 110 mg 05/10/20 22:00 06/15/20 21:50 Enoxaparin 1 mg/kg (110 mg) 110 mg SUB-Q Administration Q12HR [facility] Protocol Famotidine 20 mg 05/25/20 22:00 06/15/20 21:51 Pepcid PO 20 mg BID DESIRE Administration Fentanyl 50 mcg 06/09/20 13:53 Sublimaze IV Q10MIN PRN ANALGESIA Folic Acid 1 mg 05/09/20 15:36 06/15/20 10:05 Folvite PO 1 mg QDAY DESIRE Administration Hydrophilic Ointment 1 applic 05/21/20 20:33 Vaseline Lip Therapy TP Q2HR PRN Dry Lips Midazolam HCl 100 mg/ Sodium 100 mls @ 2 mls/hr 06/02/20 14:00 06/16/20 08:03 Chloride IV 5 mg/hr TITR DESIRE 5 mls/hr Administration Protocol 2 MG/HR Norepinephrine 4 mg in 250 mls @ 7.5 mls/hr 06/04/20 16:00 06/16/20 08:38 Levophed Drip 4 Mg/Ns 250 Ml IV 14 mcg/min TITR DESIRE 52.5 mls/hr Administration Protocol 2 MCG/MIN Propofol 500 mg in 50 mls @ 3.309 mls/hr 06/08/20 11:00 06/16/20 08:03 Propofol IV 35 mcg/kg/min TITR DESIRE 23.163 mls/hr Administration Protocol 5 MCG/KG/MIN Fentanyl Citrate 2,000 mcg in 100 mls @ 5.32 mls/hr 06/09/20 14:00 06/16/20 04:28 Fentanyl Drip Premix IV 3 mcg/kg/hr TITR DESIRE 15.96 mls/hr Administration Protocol 1 MCG/KG/HR Vasopressin 20 unit/ Sodium 101 mls @ 9.09 mls/hr 06/09/20 18:00 Chloride IV TITR DESIRE Protocol 0.03 UNITS/MIN Insulin Human Lispro 0 unit 05/29/20 14:00 06/16/20 05:24 Humalog SUB-Q 4 unit Q6H [facility] Administration Protocol Methylprednisolone Sodium Succinate 40 mg 05/20/20 18:00 06/16/20 05:29 Solu-Medrol IV 40 mg Q12H DESIRE Administration Metoprolol Tartrate 5 mg 05/20/20 17:52 06/14/20 08:19 Metoprolol IV 5 mg Q6HR PRN Administration Tachyarrhythmias Midazolam HCl 2 mg 06/02/20 13:11 06/14/20 07:50 Versed IV 2 mg Q10MIN PRN Administration Sedation Multi-Ingred Cream/Lotion/Oil/Oint 1 applic 05/21/20 20:33 Artificial Tears Ophth Oint OU Q4HR PRN Dry Eye(s) Polyethylene Glycol 17 gm 05/28/20 22:00 06/15/20 21:51 Miralax 3350 PO 17 gm QHS DESIRE Administration Quetiapine Fumarate 300 mg 06/10/20 22:00 06/15/20 21:51 Seroquel PO 300 mg BID DESIRE Administration Senna 17.2 mg 06/07/20 10:00 06/15/20 21:51 Senokot PO 17.2 mg BID DESIRE Administration Simple Syrup 15 ml 05/22/20 13:01 Simple Syrup FEEDTUBE PRN PRN Hypoglycemia Simple Syrup 30 ml 05/22/20 13:01 Simple Syrup FEEDTUBE PRN PRN Hypoglycemia Sodium Bicarbonate 325 mg 05/22/20 13:01 Sodium Bicarbonate FEEDTUBE PRN PRN For Clogged Feeding Tube Sodium Chloride 10 ml 05/09/20 22:00 06/15/20 10:00 Sodium Chloride Flush Syringe 10 Ml IV 10 ml BID DESIRE Administration Nutrition/Malnutrition Assess - Dietary Evaluation Nutrition/Malnutrition Findings: Nutrition Notes Start: 05/17/20 14:10 Freq: Status: Active Protocol: Document 06/15/20 14:11 EN (Rec: 06/15/20 14:17 EN [email or web address]) Co-Sign 06/15/20 14:11 LM Nutrition Notes Initial or Follow up Reassessment Current Diagnosis Sepsis,Respiratory Failure Other Pertinent Diagnosis Bilat pneu, COVID-19 (+), EtOH dependence Current Diet Vital HP at 75 ml/hr (goal rate) Labs/Tests Na 133 Glu 159 Pertinent Medications Propofol Norepinephrine Fentanyl Solu-medrol Height 6 ft Weight 106.3 kg [place] Body Weight (kg) 80.90 BMI 31.8 Weight change and time frame Wt change noted Weight Status Obese Subjective/Other Information F/u for TF tolerance. Pt tolerating TF at goal rate. Per RN, pt has increased yellow oral secretions. RN requesting to lower TF rate. Percent of energy/protein needs met: 96%/98% Burn Absent Trauma Absent GI Symptoms None Current % PO Negligible Minimum of two criteria No physical signs of malnutrition #1 Nutrition Diagnosis Inadequate oral intake Diagnosis Progress(for reassessment Continues documentation) Is patient on ventilator? Yes Is Patient Ambulatory and/or Out of Bed No REE-([facility]-confined to bed) 2350.824 Kcal/Kg value to use for calculation 17 Approximate Energy Requirements Using 1807 kcal/Kg Calculation Used for Recommendations Kcal/kg Additional Notes Pro needs >2g/kg IBW: at least 162g/day Fluid needs 1ml/kcal Nutrition Intervention Change Diet Order: Continue TF with rate change Nutrition Support: Vital HP at 65ml/hr with 50ml water flush q4h. For hyponatremia, flush 50 ml q6h Kcal 1,560 Protein (gm) 136 Fluid (mL) 1,304 Goal #1 TF tolerance Goal #2 TF (at goal rate) to meet at least 75% energy and pro needs Anticipated Discharge Needs: Unable to identify at this time Follow-Up By: 06/17/20 Additional Comments Follow for TF rate/tolerance and oral secretion
[2020-06-16] MEDS: QUEtiapine 100 MG TAB PO SCH ×2 (10:09→21:50)
[2020-06-16] MEDS: SENNOSIDES 8.6 MG TAB PO SCH ×2 (10:10→21:50)
[2020-06-16] MEDS: FAMOTIDINE 20 MG TAB PO SCH ×2 (10:10→21:50)
[2020-06-16] MEDS: FOLIC ACID 1 MG TAB PO SCH (10:10)
[2020-06-16] MEDS: ENOXAPARIN 120 MG/0.8 ML INJ SUB-Q SCH ×2 (10:11→21:50)
--- NOTE | 2020-06-16 13:25 | Progress Note ---
Assessment and Plan Acute hypoxemic respiratory failure due to COVID-19 Severe Sepsis Bilateral pneumonia Acute kidney injury (SEN) with acute tubular necrosis (ATN) Alcohol dependence Elevated liver function tests - keep peep at 16 - continue to wean supplemental oxygen for target O2 sat's > 92% acutely - continue to wean Levophed for target MAP > 65 mmHg - tracheostomy placement once oxygenation better / more hemodynamically stable - continue care as below otherwise; - ETT day # 26; he will need a tracheostomy once numbers better - continue Daily SAT and SBT assessment as tolerated - VAP bundle addressed - continue lung protective strategies - continue bronchodilators with pulmonary hygiene per RT - wean per pulmonary driven protocols otherwise - accuchecks with glycemic control per SSI (While critically ill target blood glucose of 140-180 mg/dL; avoid hypoglycemia) - sedation prn for target RASS -1 to -2 - continue enteral nutritional support at goal rate as tolerated - continue airborne and contact isolation - follow repeat COVID-19 testing - continue Zinc & Vit C supplementaion - continue systemic steroids for Asthma / severe COVID infection - Prone positioning as tolerated - continue empiric full dose anticoagulation re: elevated d-dimers / hypercoagulable state - NOT a candidate for COVID convalescent plasma - continue systemic steroids X >/= 10 days - complete remdesivir dosing (total 5 days) - Monitor liver function test on Remdesivir - trend inflammatory markers - ferritin, Ddimer, CRP, LDH; to aid clinical decision making - empiric AB's coverage per ID rec's otherwise - accuchecks with glycemic control per SSI (While critically ill target blood glucose of 140-180 mg/dL; avoid hypoglycemia) - avoid nephrotoxins, renally dose all medications - continue to avoid benzodiazepine's, reduce the possibility of delirium - continue wound care per RN / WCN - prn analgesia per CPOT score - Maintenance of sleep-wake cycle, avoid delirium - continue to avoid benzodiazepine's, reduce the possibility of delirium - aspiration precautions - G.I. & VTE prophylaxis - PT/OT/ROM exercises - continue mobility protocols for pressure ulcer prophylaxis - Monitor hemodynamics closely - continue other care per attending / other consultants - discharge planning ongoing concurrently .... Re-evaluate in am & prn CONDITION: CRITICAL PROGNOSIS: GUARDED CODE STATUS: FULL CODE The high probability of a clinically significant, sudden or life-threatening deterioration of the [respiratory, cardiovascular, hematologic & neurologic] system(s) required my full and direct attention, intervention and personal management. The aggregate critical care time was [36] minutes without overlap. Time includes spent on; [x] Data Review and interpretation [x] Patient assessment and monitoring of vital signs [x] Documentation [x] Medication orders and management Subjective Date of service: 06/16/20 Principal diagnosis: Ac hypoxemic resp failure; COVID-19; Severe Sepsis; Shaggy PNA; Alcohol Abuse Interval history: Patient is seen today for: Acute hypoxemic respiratory failure due to COVID-19; Severe Sepsis; Bilateral pneumonia; Alcohol dependence; Elevated liver function tests Seen and examined at bedside; 24hour events reviewed; nursing and respiratory care staff consulted; no adverse overnight events reported to me; resting in bed; remains on MVS; oxygenation still labile; remains on Levophed; delirious with sedation vacations but agitated; No emesis or overt aspiration and no gross bleeding Objective Vital Signs - 12hr 06/16/20 06/16/20 06/16/20 01:30 01:45 02:00 Temperature Pulse Rate 118 H 117 H 117 H Pulse Rate [ Bilateral Throughout] Pulse Rate [ From Monitor] Respiratory 29 H 27 H 20 Rate Respiratory Rate [Bilateral Throughout] Blood Pressure 114/54 113/62 111/66 O2 Sat by Pulse 95 95 96 Oximetry 06/16/20 06/16/20 06/16/20 02:15 02:30 02:45 Temperature Pulse Rate 115 H 117 H 115 H Pulse Rate [ Bilateral Throughout] Pulse Rate [ From Monitor] Respiratory 30 H 30 H 30 H Rate Respiratory Rate [Bilateral Throughout] Blood Pressure 103/69 109/61 102/64 O2 Sat by Pulse 95 96 95 Oximetry 06/16/20 06/16/20 06/16/20 03:00 03:15 03:30 Temperature Pulse Rate 117 H 116 H 115 H Pulse Rate [ Bilateral Throughout] Pulse Rate [ From Monitor] Respiratory 26 H 27 H 31 H Rate Respiratory Rate [Bilateral Throughout] Blood Pressure 112/62 105/65 115/63 O2 Sat by Pulse 96 95 96 Oximetry 06/16/20 06/16/20 06/16/20 03:45 04:00 04:15 Temperature 98.0 F Pulse Rate 116 H 114 H 113 H Pulse Rate [ Bilateral Throughout] Pulse Rate [ 115 H From Monitor] Respiratory 21 22 19 Rate Respiratory Rate [Bilateral Throughout] Blood Pressure 122/62 104/62 113/62 O2 Sat by Pulse 94 100 96 Oximetry 06/16/20 06/16/20 06/16/20 04:30 04:45 05:00 Temperature Pulse Rate 119 H 114 H 116 H Pulse Rate [ Bilateral Throughout] Pulse Rate [ From Monitor] Respiratory 17 9 L 12 Rate Respiratory Rate [Bilateral Throughout] Blood Pressure 112/86 113/61 93/57 O2 Sat by Pulse 99 94 96 Oximetry 06/16/20 06/16/20 06/16/20 05:15 05:30 05:45 Temperature Pulse Rate 116 H 114 H 113 H Pulse Rate [ Bilateral Throughout] Pulse Rate [ From Monitor] Respiratory 12 14 10 L Rate Respiratory Rate [Bilateral Throughout] Blood Pressure 104/62 102/69 104/68 O2 Sat by Pulse 99 90 93 Oximetry 06/16/20 06/16/20 06/16/20 06:00 06:15 06:30 Temperature Pulse Rate 112 H 112 H 115 H Pulse Rate [ Bilateral Throughout] Pulse Rate [ From Monitor] Respiratory 10 L 11 L 10 L Rate Respiratory Rate [Bilateral Throughout] Blood Pressure 108/65 117/65 111/75 O2 Sat by Pulse 94 96 96 Oximetry 06/16/20 06/16/20 06/16/20 06:45 07:00 07:15 Temperature Pulse Rate 111 H 111 H 105 H Pulse Rate [ Bilateral Throughout] Pulse Rate [ From Monitor] Respiratory 11 L 11 L 15 Rate Respiratory Rate [Bilateral Throughout] Blood Pressure 119/68 98/69 104/68 O2 Sat by Pulse 95 96 92 Oximetry 06/16/20 06/16/20 06/16/20 07:30 07:45 08:00 Temperature 98.6 F Pulse Rate 110 H 111 H 113 H Pulse Rate [ Bilateral Throughout] Pulse Rate [ 113 H From Monitor] Respiratory 13 10 L 12 Rate Respiratory Rate [Bilateral Throughout] Blood Pressure 94/67 111/69 121/67 O2 Sat by Pulse 94 98 98 Oximetry 06/16/20 06/16/20 06/16/20 08:08 08:10 08:15 Temperature Pulse Rate 112 H 113 H Pulse Rate [ 114 H Bilateral Throughout] Pulse Rate [ From Monitor] Respiratory 10 L Rate Respiratory 30 H Rate [Bilateral Throughout] Blood Pressure 121/67 111/69 O2 Sat by Pulse 96 97 Oximetry 06/16/20 06/16/20 06/16/20 08:30 08:45 09:00 Temperature Pulse Rate 114 H 110 H 108 H Pulse Rate [ Bilateral Throughout] Pulse Rate [ From Monitor] Respiratory 11 L 11 L 10 L Rate Respiratory Rate [Bilateral Throughout] Blood Pressure 103/53 116/70 116/73 O2 Sat by Pulse 96 95 94 Oximetry 06/16/20 06/16/20 06/16/20 09:15 09:30 09:45 Temperature Pulse Rate 110 H 110 H 110 H Pulse Rate [ Bilateral Throughout] Pulse Rate [ From Monitor] Respiratory 10 L 10 L 11 L Rate Respiratory Rate [Bilateral Throughout] Blood Pressure 124/69 121/72 118/70 O2 Sat by Pulse 95 95 95 Oximetry 06/16/20 06/16/20 06/16/20 10:00 10:15 10:30 Temperature Pulse Rate 107 H 103 H 112 H Pulse Rate [ Bilateral Throughout] Pulse Rate [ From Monitor] Respiratory 10 L 10 L 12 Rate Respiratory Rate [Bilateral Throughout] Blood Pressure 118/72 123/68 122/63 O2 Sat by Pulse 94 94 94 Oximetry 06/16/20 06/16/20 06/16/20 10:45 11:00 11:15 Temperature Pulse Rate 118 H 121 H 118 H Pulse Rate [ Bilateral Throughout] Pulse Rate [ From Monitor] Respiratory 14 13 10 L Rate Respiratory Rate [Bilateral Throughout] Blood Pressure 109/64 116/64 103/61 O2 Sat by Pulse 94 95 95 Oximetry 06/16/20 06/16/20 06/16/20 11:30 11:40 11:45 Temperature Pulse Rate 122 H 112 H 118 H Pulse Rate [ Bilateral Throughout] Pulse Rate [ From Monitor] Respiratory 24 15 Rate Respiratory Rate [Bilateral Throughout] Blood Pressure 91/67 121/67 111/63 O2 Sat by Pulse 89 96 90 Oximetry 06/16/20 06/16/20 06/16/20 12:00 12:15 12:30 Temperature 98.6 F Pulse Rate 121 H 123 H 119 H Pulse Rate [ Bilateral Throughout] Pulse Rate [ 113 H From Monitor] Respiratory 13 13 11 L Rate Respiratory Rate [Bilateral Throughout] Blood Pressure 101/60 91/52 101/59 O2 Sat by Pulse 93 92 95 Oximetry 06/16/20 06/16/20 12:45 13:00 Temperature Pulse Rate 113 H 118 H Pulse Rate [ Bilateral Throughout] Pulse Rate [ From Monitor] Respiratory 12 13 Rate Respiratory Rate [Bilateral Throughout] Blood Pressure 109/68 117/59 O2 Sat by Pulse 96 Oximetry Constitutional: no acute distress, other (middle aged obese male with normal respiratory effort at rest on MVS) Eyes: non-icteric ENT: oropharynx moist, other (ETT 24 cm CHILO) Neck: supple, no JVD Effort: normal Ascultation: Bilateral: diminished breath sounds, rhonchi Percussion: Bilateral: not dull Cardiovascular: regular rate and rhythm Gastrointestinal: normoactive bowel sounds, soft, non-tender, non-distended (protuberant) Integumentary: normal Extremities: no cyanosis, no edema, pulses normal, no ischemia or petechiae Neurologic: pupils equal and round, CN II-XII normal, other (unable top assess re: AMS) Psychiatric: other (sedated) CBC and BMP: 06/16/20 04:00 06/16/20 04:00 ABG, PT/INR, D-dimer: ABG ABG pH 7.431 (7.320-7.450) 06/15/20 06:27 POC ABG pCO2 61.0 mmHg (32.0-48.0) H 06/15/20 06:27 ABG pCO2 69.6 mm Hg 06/05/20 12:35 POC ABG pO2 67.9 mmHg (83-108) L 06/15/20 06:27 ABG pO2 127.9 mm Hg (80.0-90.0) H 06/05/20 12:35 POC ABG HCO3 39.7 06/15/20 06:27 ABG O2 Saturation 98.3 % (95.0-99.0) 06/05/20 12:35 PT/INR, D-dimer PT 14.4 Sec. (12.2-14.9) 06/13/20 14:14 INR 1.13 (0.87-1.13) 06/13/20 14:14 D-Dimer 1887.82 ng/mlDDU (0-234) H 05/20/20 08:16 Abnormal lab findings: Abnormal Labs 05/09/20 05/09/20 05/09/20 12:59 12:59 12:59 WBC 11.8 H RBC Hgb Hct MCV 96 H MCH 34 H MCHC 35 H RDW Lymph % (Auto) 6.9 L Lymph # (Auto) 0.8 L Seg Neutrophils % 87.5 H Seg Neuts % (Manual) Lymphocytes % (Manual) Nucleated RBC % Seg Neutrophils # 10.3 H Seg Neutrophils # Man Lymphocytes # (Manual) Monocytes # (Manual) D-Dimer ABG pH POC ABG pCO2 POC ABG pO2 ABG pO2 ABG HCO3 ABG O2 Saturation ABG Base Excess ABG Hemoglobin ABG Oxyhemoglobin ABG Sodium ABG Potassium ABG Chloride ABG Glucose Oxyhemoglobin Sodium 130 L Potassium 3.5 L Chloride 86.4 L Carbon Dioxide BUN 33 H Creatinine 2.3 H Glucose 156 H POC Glucose Lactic Acid Calcium Magnesium Ferritin Total Bilirubin 3.40 H Direct Bilirubin 1.7 H AST 385 H ALT 134 H Alkaline Phosphatase Lactate Dehydrogenase C-Reactive Protein Total Protein Albumin 3.0 L Triglycerides Arterial Blood Glucose Arterial Blood Ionized Calcium Urine WBC (Auto) Coronavirus (PCR) SARS-CoV-2 IgG Ab 05/09/20 05/09/20 05/09/20 12:59 12:59 12:59 WBC RBC Hgb Hct MCV MCH MCHC RDW Lymph % (Auto) Lymph # (Auto) Seg Neutrophils % Seg Neuts % (Manual) Lymphocytes % (Manual) Nucleated RBC % Seg Neutrophils # Seg Neutrophils # Man Lymphocytes # (Manual) Monocytes # (Manual) D-Dimer 3242.51 H ABG pH POC ABG pCO2 POC ABG pO2 ABG pO2 ABG HCO3 ABG O2 Saturation ABG Base Excess ABG Hemoglobin ABG Oxyhemoglobin ABG Sodium ABG Potassium ABG Chloride ABG Glucose Oxyhemoglobin Sodium Potassium Chloride Carbon Dioxide BUN Creatinine Glucose 158 H POC Glucose Lactic Acid 3.50 H* Calcium Magnesium Ferritin Total Bilirubin Direct Bilirubin AST ALT Alkaline Phosphatase Lactate Dehydrogenase 2166 H C-Reactive Protein 39.00 H Total Protein Albumin Triglycerides Arterial Blood Glucose Arterial Blood Ionized Calcium Urine WBC (Auto) Coronavirus (PCR) SARS-CoV-2 IgG Ab 05/09/20 05/09/20 05/09/20 12:59 14:20 14:20 WBC RBC Hgb Hct MCV MCH MCHC RDW Lymph % (Auto) Lymph # (Auto) Seg Neutrophils % Seg Neuts % (Manual) Lymphocytes % (Manual) Nucleated RBC % Seg Neutrophils # Seg Neutrophils # Man Lymphocytes # (Manual) Monocytes # (Manual) D-Dimer 2861.78 H ABG pH POC ABG pCO2 POC ABG pO2 ABG pO2 ABG HCO3 ABG O2 Saturation ABG Base Excess ABG Hemoglobin ABG Oxyhemoglobin ABG Sodium ABG Potassium ABG Chloride ABG Glucose Oxyhemoglobin Sodium Potassium Chloride Carbon Dioxide BUN Creatinine Glucose POC Glucose Lactic Acid 2.20 H* Calcium Magnesium Ferritin 38054.0 H Total Bilirubin Direct Bilirubin AST ALT Alkaline Phosphatase Lactate Dehydrogenase C-Reactive Protein Total Protein Albumin Triglycerides Arterial Blood Glucose Arterial Blood Ionized Calcium Urine WBC (Auto) Coronavirus (PCR) SARS-CoV-2 IgG Ab 05/09/20 05/09/20 05/09/20 14:20 14:20 15:56 WBC RBC Hgb Hct MCV MCH MCHC RDW Lymph % (Auto) Lymph # (Auto) Seg Neutrophils % Seg Neuts % (Manual) Lymphocytes % (Manual) Nucleated RBC % Seg Neutrophils # Seg Neutrophils # Man Lymphocytes # (Manual) Monocytes # (Manual) D-Dimer ABG pH POC ABG pCO2 POC ABG pO2 57.3 L ABG pO2 ABG HCO3 ABG O2 Saturation ABG Base Excess ABG Hemoglobin ABG Oxyhemoglobin 86.3 L ABG Sodium 129.9 L ABG Potassium ABG Chloride ABG Glucose 146 H Oxyhemoglobin Sodium Potassium Chloride Carbon Dioxide BUN Creatinine Glucose 143 H POC Glucose Lactic Acid Calcium Magnesium Ferritin 23154.0 H Total Bilirubin Direct Bilirubin AST ALT Alkaline Phosphatase Lactate Dehydrogenase 1953 H C-Reactive Protein 33.50 H Total Protein Albumin Triglycerides Arterial Blood Glucose 146 H Arterial Blood Ionized Calcium 3.9 L Urine WBC (Auto) Coronavirus (PCR) SARS-CoV-2 IgG Ab 05/10/20 05/10/20 05/10/20 10:32 10:32 18:50 WBC 15.4 H RBC Hgb Hct MCV 97 H MCH 33 H MCHC RDW 13.1 L Lymph % (Auto) Lymph # (Auto) Seg Neutrophils % Seg Neuts % (Manual) 89.0 H Lymphocytes % (Manual) 8.0 L Nucleated RBC % Seg Neutrophils # Seg Neutrophils # Man 13.7 H Lymphocytes # (Manual) Monocytes # (Manual) D-Dimer ABG pH POC ABG pCO2 POC ABG pO2 ABG pO2 ABG HCO3 ABG O2 Saturation ABG Base Excess ABG Hemoglobin ABG Oxyhemoglobin ABG Sodium ABG Potassium ABG Chloride ABG Glucose Oxyhemoglobin Sodium 136 L Potassium Chloride 97.4 L Carbon Dioxide BUN 37 H Creatinine 1.7 H Glucose 209 H POC Glucose Lactic Acid Calcium Magnesium Ferritin > 2000.0 H Total Bilirubin Direct Bilirubin AST ALT Alkaline Phosphatase Lactate Dehydrogenase C-Reactive Protein Total Protein Albumin Triglycerides Arterial Blood Glucose Arterial Blood Ionized Calcium Urine WBC (Auto) Coronavirus (PCR) SARS-CoV-2 IgG Ab 05/10/20 05/10/20 05/10/20 18:50 19:00 Unknown WBC RBC Hgb Hct MCV MCH MCHC RDW Lymph % (Auto) Lymph # (Auto) Seg Neutrophils % Seg Neuts % (Manual) Lymphocytes % (Manual) Nucleated RBC % Seg Neutrophils # Seg Neutrophils # Man Lymphocytes # (Manual) Monocytes # (Manual) D-Dimer > 87166 H ABG pH POC ABG pCO2 POC ABG pO2 ABG pO2 ABG HCO3 ABG O2 Saturation ABG Base Excess ABG Hemoglobin ABG Oxyhemoglobin ABG Sodium ABG Potassium ABG Chloride ABG Glucose Oxyhemoglobin Sodium Potassium Chloride Carbon Dioxide BUN Creatinine Glucose POC Glucose Lactic Acid Calcium Magnesium Ferritin Total Bilirubin Direct Bilirubin AST ALT Alkaline Phosphatase Lactate Dehydrogenase 1879 H C-Reactive Protein 24.80 H Total Protein Albumin Triglycerides Arterial Blood Glucose Arterial Blood Ionized Calcium Urine WBC (Auto) 11.0 H Coronavirus (PCR) SARS-CoV-2 IgG Ab 05/10/20 05/11/20 05/11/20 Unknown 07:30 07:30 WBC RBC Hgb Hct MCV MCH MCHC RDW Lymph % (Auto) Lymph # (Auto) Seg Neutrophils % Seg Neuts % (Manual) Lymphocytes % (Manual) Nucleated RBC % Seg Neutrophils # Seg Neutrophils # Man Lymphocytes # (Manual) Monocytes # (Manual) D-Dimer > 2000 H ABG pH POC ABG pCO2 POC ABG pO2 ABG pO2 ABG HCO3 ABG O2 Saturation ABG Base Excess ABG Hemoglobin ABG Oxyhemoglobin ABG Sodium ABG Potassium ABG Chloride ABG Glucose Oxyhemoglobin Sodium Potassium Chloride 96.3 L Carbon Dioxide BUN 36 H Creatinine Glucose 161 H POC Glucose Lactic Acid Calcium 8.3 L Magnesium Ferritin Total Bilirubin 1.50 H Direct Bilirubin 0.6 H AST 178 H ALT 111 H Alkaline Phosphatase Lactate Dehydrogenase C-Reactive Protein Total Protein Albumin 3.0 L Triglycerides Arterial Blood Glucose Arterial Blood Ionized Calcium Urine WBC (Auto) Coronavirus (PCR) Positive A SARS-CoV-2 IgG Ab 05/11/20 05/11/20 05/11/20 07:30 07:30 07:30 WBC RBC Hgb Hct MCV MCH MCHC RDW Lymph % (Auto) Lymph # (Auto) Seg Neutrophils % Seg Neuts % (Manual) Lymphocytes % (Manual) Nucleated RBC % Seg Neutrophils # Seg Neutrophils # Man Lymphocytes # (Manual) Monocytes # (Manual) D-Dimer ABG pH POC ABG pCO2 POC ABG pO2 ABG pO2 ABG HCO3 ABG O2 Saturation ABG Base Excess ABG Hemoglobin ABG Oxyhemoglobin ABG Sodium ABG Potassium ABG Chloride ABG Glucose Oxyhemoglobin Sodium Potassium Chloride Carbon Dioxide BUN Creatinine Glucose POC Glucose Lactic Acid Calcium Magnesium Ferritin 38345.0 H Total Bilirubin Direct Bilirubin AST ALT Alkaline Phosphatase Lactate Dehydrogenase 1523 H C-Reactive Protein 12.90 H Total Protein Albumin Triglycerides Arterial Blood Glucose Arterial Blood Ionized Calcium Urine WBC (Auto) Coronavirus (PCR) SARS-CoV-2 IgG Ab Reactive A 05/13/20 05/13/20 05/15/20 05:20 05:20 08:15 WBC RBC Hgb Hct MCV MCH MCHC RDW Lymph % (Auto) Lymph # (Auto) Seg Neutrophils % Seg Neuts % (Manual) Lymphocytes % (Manual) Nucleated RBC % Seg Neutrophils # Seg Neutrophils # Man Lymphocytes # (Manual) Monocytes # (Manual) D-Dimer > 02174 H 5318.28 H ABG pH POC ABG pCO2 POC ABG pO2 ABG pO2 ABG HCO3 ABG O2 Saturation ABG Base Excess ABG Hemoglobin ABG Oxyhemoglobin ABG Sodium ABG Potassium ABG Chloride ABG Glucose Oxyhemoglobin Sodium Potassium Chloride Carbon Dioxide 32 H BUN 30 H Creatinine Glucose 156 H POC Glucose Lactic Acid Calcium Magnesium 2.60 H Ferritin Total Bilirubin 1.40 H Direct Bilirubin AST 121 H ALT 119 H Alkaline Phosphatase Lactate Dehydrogenase 957 H C-Reactive Protein 4.00 H Total Protein Albumin 3.0 L Triglycerides Arterial Blood Glucose Arterial Blood Ionized Calcium Urine WBC (Auto) Coronavirus (PCR) SARS-CoV-2 IgG Ab 05/15/20 05/15/20 05/15/20 08:15 08:15 08:15 WBC 12.4 H RBC Hgb Hct MCV 98 H MCH 33 H MCHC RDW Lymph % (Auto) 9.7 L Lymph # (Auto) Seg Neutrophils % 86.8 H Seg Neuts % (Manual) Lymphocytes % (Manual) Nucleated RBC % Seg Neutrophils # 10.8 H Seg Neutrophils # Man Lymphocytes # (Manual) Monocytes # (Manual) D-Dimer ABG pH POC ABG pCO2 POC ABG pO2 ABG pO2 ABG HCO3 ABG O2 Saturation ABG Base Excess ABG Hemoglobin ABG Oxyhemoglobin ABG Sodium ABG Potassium ABG Chloride ABG Glucose Oxyhemoglobin Sodium Potassium Chloride 94.8 L Carbon Dioxide 32 H BUN 22 H Creatinine Glucose 115 H POC Glucose Lactic Acid Calcium 8.3 L Magnesium Ferritin 2494.0 H Total Bilirubin Direct Bilirubin AST 73 H ALT 121 H Alkaline Phosphatase Lactate Dehydrogenase 835 H C-Reactive Protein 3.40 H Total Protein 6.1 L Albumin 3.0 L Triglycerides Arterial Blood Glucose Arterial Blood Ionized Calcium Urine WBC (Auto) Coronavirus (PCR) SARS-CoV-2 IgG Ab 05/17/20 05/17/20 05/17/20 05:50 05:50 05:50 WBC RBC Hgb Hct MCV MCH MCHC RDW Lymph % (Auto) Lymph # (Auto) Seg Neutrophils % Seg Neuts % (Manual) Lymphocytes % (Manual) Nucleated RBC % Seg Neutrophils # Seg Neutrophils # Man Lymphocytes # (Manual) Monocytes # (Manual) D-Dimer 2911.42 H ABG pH POC ABG pCO2 POC ABG pO2 ABG pO2 ABG HCO3 ABG O2 Saturation ABG Base Excess ABG Hemoglobin ABG Oxyhemoglobin ABG Sodium ABG Potassium ABG Chloride ABG Glucose Oxyhemoglobin Sodium 136 L Potassium Chloride 96.0 L Carbon Dioxide 34 H BUN 22 H Creatinine Glucose 140 H POC Glucose Lactic Acid Calcium Magnesium Ferritin 2082.0 H Total Bilirubin Direct Bilirubin AST ALT 75 H Alkaline Phosphatase Lactate Dehydrogenase 601 H C-Reactive Protein 2.70 H Total Protein Albumin 2.9 L Triglycerides Arterial Blood Glucose Arterial Blood Ionized Calcium Urine WBC (Auto) Coronavirus (PCR) SARS-CoV-2 IgG Ab 05/17/20 05/18/20 05/20/20 05:50 12:22 08:16 WBC RBC Hgb Hct MCV 98 H MCH 33 H MCHC RDW Lymph % (Auto) 8.0 L Lymph # (Auto) 0.8 L Seg Neutrophils % 89.3 H Seg Neuts % (Manual) Lymphocytes % (Manual) Nucleated RBC % Seg Neutrophils # 8.8 H Seg Neutrophils # Man Lymphocytes # (Manual) Monocytes # (Manual) D-Dimer 1887.82 H ABG pH POC ABG pCO2 POC ABG pO2 ABG pO2 ABG HCO3 ABG O2 Saturation ABG Base Excess ABG Hemoglobin ABG Oxyhemoglobin ABG Sodium ABG Potassium ABG Chloride ABG Glucose Oxyhemoglobin Sodium Potassium Chloride Carbon Dioxide BUN Creatinine Glucose POC Glucose 178 H Lactic Acid Calcium Magnesium Ferritin Total Bilirubin Direct Bilirubin AST ALT Alkaline Phosphatase Lactate Dehydrogenase C-Reactive Protein Total Protein Albumin Triglycerides Arterial Blood Glucose Arterial Blood Ionized Calcium Urine WBC (Auto) Coronavirus (PCR) SARS-CoV-2 IgG Ab 05/20/20 05/20/20 05/21/20 08:16 08:16 21:10 WBC RBC Hgb Hct MCV MCH MCHC RDW Lymph % (Auto) Lymph # (Auto) Seg Neutrophils % Seg Neuts % (Manual) Lymphocytes % (Manual) Nucleated RBC % Seg Neutrophils # Seg Neutrophils # Man Lymphocytes # (Manual) Monocytes # (Manual) D-Dimer ABG pH 7.483 H POC ABG pCO2 POC ABG pO2 ABG pO2 50.0 L ABG HCO3 27.0 H ABG O2 Saturation 86.2 L ABG Base Excess 3.7 H ABG Hemoglobin ABG Oxyhemoglobin ABG Sodium ABG Potassium ABG Chloride ABG Glucose Oxyhemoglobin 84.2 L Sodium Potassium Chloride Carbon Dioxide BUN Creatinine Glucose POC Glucose Lactic Acid Calcium Magnesium Ferritin 1960.0 H Total Bilirubin Direct Bilirubin AST ALT Alkaline Phosphatase Lactate Dehydrogenase 705 H C-Reactive Protein 3.10 H Total Protein Albumin Triglycerides Arterial Blood Glucose Arterial Blood Ionized Calcium Urine WBC (Auto) Coronavirus (PCR) SARS-CoV-2 IgG Ab 05/22/20 05/22/20 05/22/20 04:01 07:53 07:53 WBC 19.2 H RBC Hgb Hct MCV 98 H MCH 34 H MCHC RDW Lymph % (Auto) Lymph # (Auto) Seg Neutrophils % Seg Neuts % (Manual) 96.0 H Lymphocytes % (Manual) 1.0 L Nucleated RBC % Seg Neutrophils # Seg Neutrophils # Man 18.4 H Lymphocytes # (Manual) 0.2 L Monocytes # (Manual) D-Dimer ABG pH POC ABG pCO2 53.8 H POC ABG pO2 125.5 H ABG pO2 ABG HCO3 ABG O2 Saturation ABG Base Excess ABG Hemoglobin ABG Oxyhemoglobin ABG Sodium 131.8 L ABG Potassium 4.8 H ABG Chloride 94.0 L ABG Glucose 163 H Oxyhemoglobin Sodium 131 L Potassium Chloride 93.4 L Carbon Dioxide BUN 40 H Creatinine Glucose 176 H POC Glucose Lactic Acid Calcium Magnesium 2.70 H Ferritin Total Bilirubin 1.80 H Direct Bilirubin AST 45 H ALT 116 H Alkaline Phosphatase 181 H Lactate Dehydrogenase C-Reactive Protein Total Protein Albumin 2.6 L Triglycerides Arterial Blood Glucose 163 H Arterial Blood Ionized Calcium 4.5 L Urine WBC (Auto) Coronavirus (PCR) SARS-CoV-2 IgG Ab 05/23/20 05/24/20 05/24/20 04:17 03:07 04:08 WBC RBC Hgb Hct MCV MCH MCHC RDW Lymph % (Auto) Lymph # (Auto) Seg Neutrophils % Seg Neuts % (Manual) Lymphocytes % (Manual) Nucleated RBC % Seg Neutrophils # Seg Neutrophils # Man Lymphocytes # (Manual) Monocytes # (Manual) D-Dimer ABG pH 7.328 L POC ABG pCO2 POC ABG pO2 ABG pO2 72.8 L 73.4 L ABG HCO3 31.0 H 34.0 H ABG O2 Saturation 93.5 L ABG Base Excess 3.5 H 7.7 H ABG Hemoglobin 13.3 L 12.1 L ABG Oxyhemoglobin ABG Sodium ABG Potassium ABG Chloride ABG Glucose Oxyhemoglobin 91.5 L 94.3 L Sodium Potassium Chloride Carbon Dioxide BUN Creatinine Glucose POC Glucose 155 H Lactic Acid Calcium Magnesium Ferritin Total Bilirubin Direct Bilirubin AST ALT Alkaline Phosphatase Lactate Dehydrogenase C-Reactive Protein Total Protein Albumin Triglycerides Arterial Blood Glucose Arterial Blood Ionized Calcium Urine WBC (Auto) Coronavirus (PCR) SARS-CoV-2 IgG Ab 05/24/20 05/24/20 05/24/20 09:33 12:21 17:52 WBC RBC Hgb Hct MCV MCH MCHC RDW Lymph % (Auto) Lymph # (Auto) Seg Neutrophils % Seg Neuts % (Manual) Lymphocytes % (Manual) Nucleated RBC % Seg Neutrophils # Seg Neutrophils # Man Lymphocytes # (Manual) Monocytes # (Manual) D-Dimer ABG pH POC ABG pCO2 POC ABG pO2 ABG pO2 ABG HCO3 ABG O2 Saturation ABG Base Excess ABG Hemoglobin ABG Oxyhemoglobin ABG Sodium ABG Potassium ABG Chloride ABG Glucose Oxyhemoglobin Sodium Potassium Chloride Carbon Dioxide 34 H D BUN 28 H Creatinine 0.7 L Glucose 168 H POC Glucose 173 H 164 H Lactic Acid Calcium Magnesium Ferritin Total Bilirubin Direct Bilirubin AST ALT Alkaline Phosphatase Lactate Dehydrogenase C-Reactive Protein Total Protein Albumin Triglycerides Arterial Blood Glucose Arterial Blood Ionized Calcium Urine WBC (Auto) Coronavirus (PCR) SARS-CoV-2 IgG Ab 05/24/20 05/25/20 05/25/20 23:47 04:29 05:46 WBC RBC Hgb Hct MCV MCH MCHC RDW Lymph % (Auto) Lymph # (Auto) Seg Neutrophils % Seg Neuts % (Manual) Lymphocytes % (Manual) Nucleated RBC % Seg Neutrophils # Seg Neutrophils # Man Lymphocytes # (Manual) Monocytes # (Manual) D-Dimer ABG pH POC ABG pCO2 68.6 H POC ABG pO2 ABG pO2 ABG HCO3 ABG O2 Saturation ABG Base Excess ABG Hemoglobin ABG Oxyhemoglobin ABG Sodium ABG Potassium 4.7 H ABG Chloride ABG Glucose 226 H Oxyhemoglobin Sodium Potassium Chloride Carbon Dioxide BUN Creatinine Glucose POC Glucose 171 H 201 H Lactic Acid Calcium Magnesium Ferritin Total Bilirubin Direct Bilirubin AST ALT Alkaline Phosphatase Lactate Dehydrogenase C-Reactive Protein Total Protein Albumin Triglycerides Arterial Blood Glucose 226 H Arterial Blood Ionized Calcium Urine WBC (Auto) Coronavirus (PCR) SARS-CoV-2 IgG Ab 05/25/20 05/25/20 05/25/20 08:37 08:37 12:38 WBC 12.0 H RBC 3.64 L Hgb Hct MCV 99 H MCH 33 H MCHC RDW Lymph % (Auto) Lymph # (Auto) Seg Neutrophils % Seg Neuts % (Manual) Lymphocytes % (Manual) Nucleated RBC % Seg Neutrophils # Seg Neutrophils # Man Lymphocytes # (Manual) Monocytes # (Manual) D-Dimer ABG pH POC ABG pCO2 POC ABG pO2 ABG pO2 ABG HCO3 ABG O2 Saturation ABG Base Excess ABG Hemoglobin ABG Oxyhemoglobin ABG Sodium ABG Potassium ABG Chloride ABG Glucose Oxyhemoglobin Sodium Potassium Chloride 97.3 L Carbon Dioxide 35 H BUN 25 H Creatinine 0.7 L Glucose 191 H POC Glucose 182 H Lactic Acid Calcium Magnesium Ferritin Total Bilirubin Direct Bilirubin AST ALT Alkaline Phosphatase Lactate Dehydrogenase C-Reactive Protein Total Protein Albumin Triglycerides Arterial Blood Glucose Arterial Blood Ionized Calcium Urine WBC (Auto) Coronavirus (PCR) SARS-CoV-2 IgG Ab 05/25/20 05/26/20 05/26/20 18:16 00:06 04:50 WBC RBC Hgb Hct MCV MCH MCHC RDW Lymph % (Auto) Lymph # (Auto) Seg Neutrophils % Seg Neuts % (Manual) Lymphocytes % (Manual) Nucleated RBC % Seg Neutrophils # Seg Neutrophils # Man Lymphocytes # (Manual) Monocytes # (Manual) D-Dimer ABG pH POC ABG pCO2 POC ABG pO2 ABG pO2 221.5 H ABG HCO3 40.4 H ABG O2 Saturation 99.3 H ABG Base Excess 12.8 H ABG Hemoglobin 10.4 L ABG Oxyhemoglobin ABG Sodium ABG Potassium ABG Chloride ABG Glucose Oxyhemoglobin Sodium Potassium Chloride Carbon Dioxide BUN Creatinine Glucose POC Glucose 176 H 152 H Lactic Acid Calcium Magnesium Ferritin Total Bilirubin Direct Bilirubin AST ALT Alkaline Phosphatase Lactate Dehydrogenase C-Reactive Protein Total Protein Albumin Triglycerides Arterial Blood Glucose Arterial Blood Ionized Calcium Urine WBC (Auto) Coronavirus (PCR) SARS-CoV-2 IgG Ab 05/26/20 05/26/20 05/26/20 06:11 07:51 07:51 WBC 13.4 H RBC 3.64 L Hgb Hct MCV 98 H MCH 33 H MCHC RDW Lymph % (Auto) Lymph # (Auto) Seg Neutrophils % Seg Neuts % (Manual) Lymphocytes % (Manual) Nucleated RBC % Seg Neutrophils # Seg Neutrophils # Man Lymphocytes # (Manual) Monocytes # (Manual) D-Dimer ABG pH POC ABG pCO2 POC ABG pO2 ABG pO2 ABG HCO3 ABG O2 Saturation ABG Base Excess ABG Hemoglobin ABG Oxyhemoglobin ABG Sodium ABG Potassium ABG Chloride ABG Glucose Oxyhemoglobin Sodium Potassium Chloride 96.6 L Carbon Dioxide 39 H BUN 29 H Creatinine 0.7 L Glucose 174 H POC Glucose 165 H Lactic Acid Calcium Magnesium Ferritin Total Bilirubin Direct Bilirubin AST ALT Alkaline Phosphatase Lactate Dehydrogenase C-Reactive Protein Total Protein Albumin Triglycerides Arterial Blood Glucose Arterial Blood Ionized Calcium Urine WBC (Auto) Coronavirus (PCR) SARS-CoV-2 IgG Ab 05/26/20 05/27/20 05/27/20 23:23 03:43 05:29 WBC RBC Hgb Hct MCV MCH MCHC RDW Lymph % (Auto) Lymph # (Auto) Seg Neutrophils % Seg Neuts % (Manual) Lymphocytes % (Manual) Nucleated RBC % Seg Neutrophils # Seg Neutrophils # Man Lymphocytes # (Manual) Monocytes # (Manual) D-Dimer ABG pH 7.480 H POC ABG pCO2 52.4 H POC ABG pO2 61.4 L ABG pO2 ABG HCO3 ABG O2 Saturation ABG Base Excess ABG Hemoglobin ABG Oxyhemoglobin ABG Sodium 134.9 L ABG Potassium ABG Chloride 95.0 L ABG Glucose 221 H Oxyhemoglobin Sodium Potassium Chloride Carbon Dioxide BUN Creatinine Glucose POC Glucose 169 H 227 H Lactic Acid Calcium Magnesium Ferritin Total Bilirubin Direct Bilirubin AST ALT Alkaline Phosphatase Lactate Dehydrogenase C-Reactive Protein Total Protein Albumin Triglycerides Arterial Blood Glucose 221 H Arterial Blood Ionized Calcium 4.5 L Urine WBC (Auto) Coronavirus (PCR) SARS-CoV-2 IgG Ab 05/27/20 05/27/20 05/27/20 07:19 12:18 13:50 WBC RBC Hgb Hct MCV MCH MCHC RDW Lymph % (Auto) Lymph # (Auto) Seg Neutrophils % Seg Neuts % (Manual) Lymphocytes % (Manual) Nucleated RBC % Seg Neutrophils # Seg Neutrophils # Man Lymphocytes # (Manual) Monocytes # (Manual) D-Dimer ABG pH POC ABG pCO2 POC ABG pO2 ABG pO2 ABG HCO3 ABG O2 Saturation ABG Base Excess ABG Hemoglobin ABG Oxyhemoglobin ABG Sodium ABG Potassium ABG Chloride ABG Glucose Oxyhemoglobin Sodium Potassium Chloride Carbon Dioxide BUN Creatinine Glucose POC Glucose 114 H 148 H Lactic Acid Calcium Magnesium Ferritin Total Bilirubin Direct Bilirubin AST ALT Alkaline Phosphatase Lactate Dehydrogenase C-Reactive Protein Total Protein Albumin Triglycerides 247 H Arterial Blood Glucose Arterial Blood Ionized Calcium Urine WBC (Auto) Coronavirus (PCR) SARS-CoV-2 IgG Ab 05/28/20 05/28/20 05/28/20 00:13 04:16 05:22 WBC RBC Hgb Hct MCV MCH MCHC RDW Lymph % (Auto) Lymph # (Auto) Seg Neutrophils % Seg Neuts % (Manual) Lymphocytes % (Manual) Nucleated RBC % Seg Neutrophils # Seg Neutrophils # Man Lymphocytes # (Manual) Monocytes # (Manual) D-Dimer ABG pH POC ABG pCO2 64.4 H POC ABG pO2 60.5 L ABG pO2 ABG HCO3 ABG O2 Saturation ABG Base Excess ABG Hemoglobin ABG Oxyhemoglobin ABG Sodium ABG Potassium ABG Chloride 95.0 L ABG Glucose 209 H Oxyhemoglobin Sodium Potassium Chloride Carbon Dioxide BUN Creatinine Glucose POC Glucose 155 H 186 H Lactic Acid Calcium Magnesium Ferritin Total Bilirubin Direct Bilirubin AST ALT Alkaline Phosphatase Lactate Dehydrogenase C-Reactive Protein Total Protein Albumin Triglycerides Arterial Blood Glucose 209 H Arterial Blood Ionized Calcium Urine WBC (Auto) Coronavirus (PCR) SARS-CoV-2 IgG Ab 05/28/20 05/28/20 05/29/20 12:45 17:39 00:37 WBC RBC Hgb Hct MCV MCH MCHC RDW Lymph % (Auto) Lymph # (Auto) Seg Neutrophils % Seg Neuts % (Manual) Lymphocytes % (Manual) Nucleated RBC % Seg Neutrophils # Seg Neutrophils # Man Lymphocytes # (Manual) Monocytes # (Manual) D-Dimer ABG pH POC ABG pCO2 POC ABG pO2 ABG pO2 ABG HCO3 ABG O2 Saturation ABG Base Excess ABG Hemoglobin ABG Oxyhemoglobin ABG Sodium ABG Potassium ABG Chloride ABG Glucose Oxyhemoglobin Sodium Potassium Chloride Carbon Dioxide BUN Creatinine Glucose POC Glucose 143 H 164 H 221 H Lactic Acid Calcium Magnesium Ferritin Total Bilirubin Direct Bilirubin AST ALT Alkaline Phosphatase Lactate Dehydrogenase C-Reactive Protein Total Protein Albumin Triglycerides Arterial Blood Glucose Arterial Blood Ionized Calcium Urine WBC (Auto) Coronavirus (PCR) SARS-CoV-2 IgG Ab 05/29/20 05/29/20 05/29/20 04:15 05:33 12:34 WBC RBC Hgb Hct MCV MCH MCHC RDW Lymph % (Auto) Lymph # (Auto) Seg Neutrophils % Seg Neuts % (Manual) Lymphocytes % (Manual) Nucleated RBC % Seg Neutrophils # Seg Neutrophils # Man Lymphocytes # (Manual) Monocytes # (Manual) D-Dimer ABG pH 7.463 H POC ABG pCO2 56.3 H POC ABG pO2 81.2 L ABG pO2 ABG HCO3 ABG O2 Saturation ABG Base Excess ABG Hemoglobin ABG Oxyhemoglobin ABG Sodium ABG Potassium ABG Chloride 96.0 L ABG Glucose 194 H Oxyhemoglobin Sodium Potassium Chloride Carbon Dioxide BUN Creatinine Glucose POC Glucose 133 H 221 H Lactic Acid Calcium Magnesium Ferritin Total Bilirubin Direct Bilirubin AST ALT Alkaline Phosphatase Lactate Dehydrogenase C-Reactive Protein Total Protein Albumin Triglycerides Arterial Blood Glucose 194 H Arterial Blood Ionized Calcium 4.5 L Urine WBC (Auto) Coronavirus (PCR) SARS-CoV-2 IgG Ab 05/29/20 05/30/20 05/30/20 18:07 00:12 05:38 WBC RBC Hgb Hct MCV MCH MCHC RDW Lymph % (Auto) Lymph # (Auto) Seg Neutrophils % Seg Neuts % (Manual) Lymphocytes % (Manual) Nucleated RBC % Seg Neutrophils # Seg Neutrophils # Man Lymphocytes # (Manual) Monocytes # (Manual) D-Dimer ABG pH POC ABG pCO2 POC ABG pO2 ABG pO2 ABG HCO3 ABG O2 Saturation ABG Base Excess ABG Hemoglobin ABG Oxyhemoglobin ABG Sodium ABG Potassium ABG Chloride ABG Glucose Oxyhemoglobin Sodium Potassium Chloride Carbon Dioxide BUN Creatinine Glucose POC Glucose 162 H 190 H 208 H Lactic Acid Calcium Magnesium Ferritin Total Bilirubin Direct Bilirubin AST ALT Alkaline Phosphatase Lactate Dehydrogenase C-Reactive Protein Total Protein Albumin Triglycerides Arterial Blood Glucose Arterial Blood Ionized Calcium Urine WBC (Auto) Coronavirus (PCR) SARS-CoV-2 IgG Ab 05/30/20 05/30/20 05/30/20 09:30 11:35 11:54 WBC 12.4 H RBC 3.48 L Hgb 11.3 L Hct 34.6 L MCV 99 H MCH 33 H MCHC RDW Lymph % (Auto) Lymph # (Auto) Seg Neutrophils % Seg Neuts % (Manual) Lymphocytes % (Manual) Nucleated RBC % Seg Neutrophils # Seg Neutrophils # Man Lymphocytes # (Manual) Monocytes # (Manual) D-Dimer ABG pH 7.455 H POC ABG pCO2 57.5 H POC ABG pO2 81.5 L ABG pO2 ABG HCO3 ABG O2 Saturation ABG Base Excess ABG Hemoglobin ABG Oxyhemoglobin ABG Sodium ABG Potassium ABG Chloride 96.0 L ABG Glucose 204 H Oxyhemoglobin Sodium Potassium Chloride Carbon Dioxide BUN Creatinine Glucose POC Glucose 183 H Lactic Acid Calcium Magnesium Ferritin Total Bilirubin Direct Bilirubin AST ALT Alkaline Phosphatase Lactate Dehydrogenase C-Reactive Protein Total Protein Albumin Triglycerides Arterial Blood Glucose 204 H Arterial Blood Ionized Calcium Urine WBC (Auto) Coronavirus (PCR) SARS-CoV-2 IgG Ab 05/30/20 05/31/20 05/31/20 18:01 00:10 03:22 WBC RBC Hgb Hct MCV MCH MCHC RDW Lymph % (Auto) Lymph # (Auto) Seg Neutrophils % Seg Neuts % (Manual) Lymphocytes % (Manual) Nucleated RBC % Seg Neutrophils # Seg Neutrophils # Man Lymphocytes # (Manual) Monocytes # (Manual) D-Dimer ABG pH POC ABG pCO2 60.4 H POC ABG pO2 71.5 L ABG pO2 ABG HCO3 ABG O2 Saturation ABG Base Excess ABG Hemoglobin ABG Oxyhemoglobin ABG Sodium ABG Potassium ABG Chloride 96.0 L ABG Glucose 169 H Oxyhemoglobin Sodium Potassium Chloride Carbon Dioxide BUN Creatinine Glucose POC Glucose 184 H 135 H Lactic Acid Calcium Magnesium Ferritin Total Bilirubin Direct Bilirubin AST ALT Alkaline Phosphatase Lactate Dehydrogenase C-Reactive Protein Total Protein Albumin Triglycerides Arterial Blood Glucose 169 H Arterial Blood Ionized Calcium 4.5 L Urine WBC (Auto) Coronavirus (PCR) SARS-CoV-2 IgG Ab 05/31/20 05/31/20 05/31/20 05:24 11:18 14:41 WBC RBC Hgb Hct MCV MCH MCHC RDW Lymph % (Auto) Lymph # (Auto) Seg Neutrophils % Seg Neuts % (Manual) Lymphocytes % (Manual) Nucleated RBC % Seg Neutrophils # Seg Neutrophils # Man Lymphocytes # (Manual) Monocytes # (Manual) D-Dimer ABG pH POC ABG pCO2 POC ABG pO2 ABG pO2 ABG HCO3 ABG O2 Saturation ABG Base Excess ABG Hemoglobin ABG Oxyhemoglobin ABG Sodium ABG Potassium ABG Chloride ABG Glucose Oxyhemoglobin Sodium Potassium Chloride 96.8 L Carbon Dioxide 37 H BUN 31 H Creatinine 0.6 L Glucose 213 H POC Glucose 164 H 208 H Lactic Acid Calcium Magnesium Ferritin Total Bilirubin Direct Bilirubin AST ALT Alkaline Phosphatase Lactate Dehydrogenase C-Reactive Protein Total Protein Albumin Triglycerides Arterial Blood Glucose Arterial Blood Ionized Calcium Urine WBC (Auto) Coronavirus (PCR) SARS-CoV-2 IgG Ab 05/31/20 05/31/20 06/01/20 17:37 23:47 03:48 WBC RBC Hgb Hct MCV MCH MCHC RDW Lymph % (Auto) Lymph # (Auto) Seg Neutrophils % Seg Neuts % (Manual) Lymphocytes % (Manual) Nucleated RBC % Seg Neutrophils # Seg Neutrophils # Man Lymphocytes # (Manual) Monocytes # (Manual) D-Dimer ABG pH POC ABG pCO2 59.7 H POC ABG pO2 73.9 L ABG pO2 ABG HCO3 ABG O2 Saturation ABG Base Excess ABG Hemoglobin ABG Oxyhemoglobin ABG Sodium ABG Potassium ABG Chloride 95.0 L ABG Glucose 256 H Oxyhemoglobin Sodium Potassium Chloride Carbon Dioxide BUN Creatinine Glucose POC Glucose 168 H 178 H Lactic Acid Calcium Magnesium Ferritin Total Bilirubin Direct Bilirubin AST ALT Alkaline Phosphatase Lactate Dehydrogenase C-Reactive Protein Total Protein Albumin Triglycerides Arterial Blood Glucose 256 H Arterial Blood Ionized Calcium Urine WBC (Auto) Coronavirus (PCR) SARS-CoV-2 IgG Ab 06/01/20 06/01/20 06/01/20 05:01 07:47 07:47 WBC 14.4 H RBC 3.46 L Hgb 11.1 L Hct 34.3 L MCV 99 H MCH MCHC RDW Lymph % (Auto) Lymph # (Auto) Seg Neutrophils % Seg Neuts % (Manual) 86.0 H Lymphocytes % (Manual) 9.0 L Nucleated RBC % Seg Neutrophils # Seg Neutrophils # Man 12.4 H Lymphocytes # (Manual) Monocytes # (Manual) D-Dimer ABG pH POC ABG pCO2 POC ABG pO2 ABG pO2 ABG HCO3 ABG O2 Saturation ABG Base Excess ABG Hemoglobin ABG Oxyhemoglobin ABG Sodium ABG Potassium ABG Chloride ABG Glucose Oxyhemoglobin Sodium Potassium Chloride Carbon Dioxide BUN Creatinine Glucose POC Glucose 197 H Lactic Acid Calcium Magnesium Ferritin Total Bilirubin Direct Bilirubin AST ALT Alkaline Phosphatase Lactate Dehydrogenase C-Reactive Protein Total Protein Albumin Triglycerides 244 H Arterial Blood Glucose Arterial Blood Ionized Calcium Urine WBC (Auto) Coronavirus (PCR) SARS-CoV-2 IgG Ab 06/01/20 06/01/20 06/01/20 07:47 11:46 18:15 WBC RBC Hgb Hct MCV MCH MCHC RDW Lymph % (Auto) Lymph # (Auto) Seg Neutrophils % Seg Neuts % (Manual) Lymphocytes % (Manual) Nucleated RBC % Seg Neutrophils # Seg Neutrophils # Man Lymphocytes # (Manual) Monocytes # (Manual) D-Dimer ABG pH POC ABG pCO2 POC ABG pO2 ABG pO2 ABG HCO3 ABG O2 Saturation ABG Base Excess ABG Hemoglobin ABG Oxyhemoglobin ABG Sodium ABG Potassium ABG Chloride ABG Glucose Oxyhemoglobin Sodium Potassium Chloride 95.4 L Carbon Dioxide 35 H BUN 30 H Creatinine 0.5 L Glucose 214 H POC Glucose 181 H 221 H Lactic Acid Calcium Magnesium Ferritin Total Bilirubin Direct Bilirubin AST 54 H ALT 235 H Alkaline Phosphatase Lactate Dehydrogenase C-Reactive Protein Total Protein Albumin 2.9 L Triglycerides Arterial Blood Glucose Arterial Blood Ionized Calcium Urine WBC (Auto) Coronavirus (PCR) SARS-CoV-2 IgG Ab 06/01/20 06/02/20 06/02/20 23:12 04:00 05:31 WBC RBC Hgb Hct MCV MCH MCHC RDW Lymph % (Auto) Lymph # (Auto) Seg Neutrophils % Seg Neuts % (Manual) Lymphocytes % (Manual) Nucleated RBC % Seg Neutrophils # Seg Neutrophils # Man Lymphocytes # (Manual) Monocytes # (Manual) D-Dimer ABG pH 7.465 H POC ABG pCO2 POC ABG pO2 ABG pO2 203.4 H ABG HCO3 41.2 H ABG O2 Saturation 99.3 H ABG Base Excess 15.1 H ABG Hemoglobin 11.5 L ABG Oxyhemoglobin ABG Sodium ABG Potassium ABG Chloride ABG Glucose Oxyhemoglobin Sodium Potassium Chloride Carbon Dioxide BUN Creatinine Glucose POC Glucose 197 H 184 H Lactic Acid Calcium Magnesium Ferritin Total Bilirubin Direct Bilirubin AST ALT Alkaline Phosphatase Lactate Dehydrogenase C-Reactive Protein Total Protein Albumin Triglycerides Arterial Blood Glucose Arterial Blood Ionized Calcium Urine WBC (Auto) Coronavirus (PCR) SARS-CoV-2 IgG Ab 06/02/20 06/02/20 06/02/20 11:49 18:06 23:00 WBC RBC Hgb Hct MCV MCH MCHC RDW Lymph % (Auto) Lymph # (Auto) Seg Neutrophils % Seg Neuts % (Manual) Lymphocytes % (Manual) Nucleated RBC % Seg Neutrophils # Seg Neutrophils # Man Lymphocytes # (Manual) Monocytes # (Manual) D-Dimer ABG pH POC ABG pCO2 POC ABG pO2 ABG pO2 ABG HCO3 ABG O2 Saturation ABG Base Excess ABG Hemoglobin ABG Oxyhemoglobin ABG Sodium ABG Potassium ABG Chloride ABG Glucose Oxyhemoglobin Sodium Potassium Chloride Carbon Dioxide BUN Creatinine Glucose POC Glucose 195 H 177 H 228 H Lactic Acid Calcium Magnesium Ferritin Total Bilirubin Direct Bilirubin AST ALT Alkaline Phosphatase Lactate Dehydrogenase C-Reactive Protein Total Protein Albumin Triglycerides Arterial Blood Glucose Arterial Blood Ionized Calcium Urine WBC (Auto) Coronavirus (PCR) SARS-CoV-2 IgG Ab 06/03/20 06/03/20 06/03/20 03:58 05:19 12:21 WBC RBC Hgb Hct MCV MCH MCHC RDW Lymph % (Auto) Lymph # (Auto) Seg Neutrophils % Seg Neuts % (Manual) Lymphocytes % (Manual) Nucleated RBC % Seg Neutrophils # Seg Neutrophils # Man Lymphocytes # (Manual) Monocytes # (Manual) D-Dimer ABG pH POC ABG pCO2 POC ABG pO2 ABG pO2 171.0 H ABG HCO3 42.8 H ABG O2 Saturation ABG Base Excess 15.6 H ABG Hemoglobin 12.3 L ABG Oxyhemoglobin ABG Sodium ABG Potassium ABG Chloride ABG Glucose Oxyhemoglobin Sodium Potassium Chloride Carbon Dioxide BUN Creatinine Glucose POC Glucose 122 H 207 H Lactic Acid Calcium Magnesium Ferritin Total Bilirubin Direct Bilirubin AST ALT Alkaline Phosphatase Lactate Dehydrogenase C-Reactive Protein Total Protein Albumin Triglycerides Arterial Blood Glucose Arterial Blood Ionized Calcium Urine WBC (Auto) Coronavirus (PCR) SARS-CoV-2 IgG Ab 06/03/20 06/03/20 06/04/20 17:27 23:50 03:55 WBC RBC Hgb Hct MCV MCH MCHC RDW Lymph % (Auto) Lymph # (Auto) Seg Neutrophils % Seg Neuts % (Manual) Lymphocytes % (Manual) Nucleated RBC % Seg Neutrophils # Seg Neutrophils # Man Lymphocytes # (Manual) Monocytes # (Manual) D-Dimer ABG pH POC ABG pCO2 POC ABG pO2 ABG pO2 117.2 H ABG HCO3 42.4 H ABG O2 Saturation ABG Base Excess 15.3 H ABG Hemoglobin 10.5 L ABG Oxyhemoglobin ABG Sodium ABG Potassium ABG Chloride ABG Glucose Oxyhemoglobin Sodium Potassium Chloride Carbon Dioxide BUN Creatinine Glucose POC Glucose 157 H 214 H Lactic Acid Calcium Magnesium Ferritin Total Bilirubin Direct Bilirubin AST ALT Alkaline Phosphatase Lactate Dehydrogenase C-Reactive Protein Total Protein Albumin Triglycerides Arterial Blood Glucose Arterial Blood Ionized Calcium Urine WBC (Auto) Coronavirus (PCR) SARS-CoV-2 IgG Ab 06/04/20 06/04/20 06/04/20 05:49 11:41 17:30 WBC RBC Hgb Hct MCV MCH MCHC RDW Lymph % (Auto) Lymph # (Auto) Seg Neutrophils % Seg Neuts % (Manual) Lymphocytes % (Manual) Nucleated RBC % Seg Neutrophils # Seg Neutrophils # Man Lymphocytes # (Manual) Monocytes # (Manual) D-Dimer ABG pH POC ABG pCO2 POC ABG pO2 ABG pO2 ABG HCO3 ABG O2 Saturation ABG Base Excess ABG Hemoglobin ABG Oxyhemoglobin ABG Sodium ABG Potassium ABG Chloride ABG Glucose Oxyhemoglobin Sodium Potassium Chloride Carbon Dioxide BUN Creatinine Glucose POC Glucose 149 H 233 H 156 H Lactic Acid Calcium Magnesium Ferritin Total Bilirubin Direct Bilirubin AST ALT Alkaline Phosphatase Lactate Dehydrogenase C-Reactive Protein Total Protein Albumin Triglycerides Arterial Blood Glucose Arterial Blood Ionized Calcium Urine WBC (Auto) Coronavirus (PCR) SARS-CoV-2 IgG Ab 06/04/20 06/04/20 06/04/20 19:01 20:53 23:41 WBC RBC 3.18 L Hgb 10.8 L Hct 31.8 L MCV 100 H MCH 34 H MCHC RDW Lymph % (Auto) Lymph # (Auto) Seg Neutrophils % Seg Neuts % (Manual) 86.0 H Lymphocytes % (Manual) 10.0 L Nucleated RBC % 1.0 H Seg Neutrophils # Seg Neutrophils # Man 8.5 H Lymphocytes # (Manual) 1.0 L Monocytes # (Manual) D-Dimer ABG pH POC ABG pCO2 POC ABG pO2 ABG pO2 ABG HCO3 ABG O2 Saturation ABG Base Excess ABG Hemoglobin ABG Oxyhemoglobin ABG Sodium ABG Potassium ABG Chloride ABG Glucose Oxyhemoglobin Sodium Potassium 3.4 L D Chloride 96.5 L Carbon Dioxide 41 H* BUN 27 H Creatinine 0.5 L Glucose 173 H POC Glucose 217 H Lactic Acid Calcium Magnesium Ferritin Total Bilirubin Direct Bilirubin AST ALT Alkaline Phosphatase Lactate Dehydrogenase C-Reactive Protein Total Protein Albumin Triglycerides Arterial Blood Glucose Arterial Blood Ionized Calcium Urine WBC (Auto) Coronavirus (PCR) SARS-CoV-2 IgG Ab 06/05/20 06/05/20 06/05/20 06:05 11:54 12:35 WBC RBC Hgb Hct MCV MCH MCHC RDW Lymph % (Auto) Lymph # (Auto) Seg Neutrophils % Seg Neuts % (Manual) Lymphocytes % (Manual) Nucleated RBC % Seg Neutrophils # Seg Neutrophils # Man Lymphocytes # (Manual) Monocytes # (Manual) D-Dimer ABG pH POC ABG pCO2 POC ABG pO2 ABG pO2 127.9 H ABG HCO3 41.1 H ABG O2 Saturation ABG Base Excess 13.0 H ABG Hemoglobin 13.4 L ABG Oxyhemoglobin ABG Sodium ABG Potassium ABG Chloride ABG Glucose Oxyhemoglobin Sodium Potassium Chloride Carbon Dioxide BUN Creatinine Glucose POC Glucose 137 H 211 H Lactic Acid Calcium Magnesium Ferritin Total Bilirubin Direct Bilirubin AST ALT Alkaline Phosphatase Lactate Dehydrogenase C-Reactive Protein Total Protein Albumin Triglycerides Arterial Blood Glucose Arterial Blood Ionized Calcium Urine WBC (Auto) Coronavirus (PCR) SARS-CoV-2 IgG Ab 06/05/20 06/05/20 06/06/20 17:03 23:49 04:42 WBC RBC Hgb Hct MCV MCH MCHC RDW Lymph % (Auto) Lymph # (Auto) Seg Neutrophils % Seg Neuts % (Manual) Lymphocytes % (Manual) Nucleated RBC % Seg Neutrophils # Seg Neutrophils # Man Lymphocytes # (Manual) Monocytes # (Manual) D-Dimer ABG pH POC ABG pCO2 56.1 H POC ABG pO2 52.5 L ABG pO2 ABG HCO3 ABG O2 Saturation ABG Base Excess ABG Hemoglobin 11.7 L ABG Oxyhemoglobin ABG Sodium ABG Potassium 3.3 L ABG Chloride 95.0 L ABG Glucose 156 H Oxyhemoglobin Sodium Potassium Chloride Carbon Dioxide BUN Creatinine Glucose POC Glucose 159 H 194 H Lactic Acid Calcium Magnesium Ferritin Total Bilirubin Direct Bilirubin AST ALT Alkaline Phosphatase Lactate Dehydrogenase C-Reactive Protein Total Protein Albumin Triglycerides Arterial Blood Glucose 156 H Arterial Blood Ionized Calcium Urine WBC (Auto) Coronavirus (PCR) SARS-CoV-2 IgG Ab 06/06/20 06/06/20 06/06/20 05:57 12:06 17:38 WBC RBC Hgb Hct MCV MCH MCHC RDW Lymph % (Auto) Lymph # (Auto) Seg Neutrophils % Seg Neuts % (Manual) Lymphocytes % (Manual) Nucleated RBC % Seg Neutrophils # Seg Neutrophils # Man Lymphocytes # (Manual) Monocytes # (Manual) D-Dimer ABG pH POC ABG pCO2 POC ABG pO2 ABG pO2 ABG HCO3 ABG O2 Saturation ABG Base Excess ABG Hemoglobin ABG Oxyhemoglobin ABG Sodium ABG Potassium ABG Chloride ABG Glucose Oxyhemoglobin Sodium Potassium Chloride Carbon Dioxide BUN Creatinine Glucose POC Glucose 144 H 230 H 162 H Lactic Acid Calcium Magnesium Ferritin Total Bilirubin Direct Bilirubin AST ALT Alkaline Phosphatase Lactate Dehydrogenase C-Reactive Protein Total Protein Albumin Triglycerides Arterial Blood Glucose Arterial Blood Ionized Calcium Urine WBC (Auto) Coronavirus (PCR) SARS-CoV-2 IgG Ab 06/06/20 06/07/20 06/07/20 23:50 04:34 06:03 WBC RBC Hgb Hct MCV MCH MCHC RDW Lymph % (Auto) Lymph # (Auto) Seg Neutrophils % Seg Neuts % (Manual) Lymphocytes % (Manual) Nucleated RBC % Seg Neutrophils # Seg Neutrophils # Man Lymphocytes # (Manual) Monocytes # (Manual) D-Dimer ABG pH 7.511 H POC ABG pCO2 53.5 H POC ABG pO2 114.5 H ABG pO2 ABG HCO3 ABG O2 Saturation ABG Base Excess ABG Hemoglobin 9.4 L ABG Oxyhemoglobin ABG Sodium 134.5 L ABG Potassium ABG Chloride 94.0 L ABG Glucose 186 H Oxyhemoglobin Sodium Potassium Chloride Carbon Dioxide BUN Creatinine Glucose POC Glucose 181 H 155 H Lactic Acid Calcium Magnesium Ferritin Total Bilirubin Direct Bilirubin AST ALT Alkaline Phosphatase Lactate Dehydrogenase C-Reactive Protein Total Protein Albumin Triglycerides Arterial Blood Glucose 186 H Arterial Blood Ionized Calcium 4.5 L Urine WBC (Auto) Coronavirus (PCR) SARS-CoV-2 IgG Ab 06/07/20 06/07/2020 13:41 14:58 14:58 WBC RBC 2.72 L Hgb 9.3 L Hct 27.2 L MCV 100 H MCH 34 H MCHC RDW Lymph % (Auto) Lymph # (Auto) Seg Neutrophils % Seg Neuts % (Manual) Lymphocytes % (Manual) Nucleated RBC % Seg Neutrophils # Seg Neutrophils # Man Lymphocytes # (Manual) Monocytes # (Manual) D-Dimer ABG pH POC ABG pCO2 POC ABG pO2 ABG pO2 ABG HCO3 ABG O2 Saturation ABG Base Excess ABG Hemoglobin ABG Oxyhemoglobin ABG Sodium ABG Potassium ABG Chloride ABG Glucose Oxyhemoglobin Sodium Potassium Chloride 93.5 L Carbon Dioxide 39 H BUN 22 H Creatinine 0.4 L Glucose 188 H POC Glucose 201 H Lactic Acid Calcium Magnesium Ferritin Total Bilirubin Direct Bilirubin AST 61 H ALT 273 H Alkaline Phosphatase Lactate Dehydrogenase C-Reactive Protein Total Protein 5.9 L Albumin 2.7 L Triglycerides Arterial Blood Glucose Arterial Blood Ionized Calcium Urine WBC (Auto) Coronavirus (PCR) SARS-CoV-2 IgG Ab 06/07/20 06/08/20 06/08/20 23:18 05:31 12:07 WBC RBC Hgb Hct MCV MCH MCHC RDW Lymph % (Auto) Lymph # (Auto) Seg Neutrophils % Seg Neuts % (Manual) Lymphocytes % (Manual) Nucleated RBC % Seg Neutrophils # Seg Neutrophils # Man Lymphocytes # (Manual) Monocytes # (Manual) D-Dimer ABG pH POC ABG pCO2 POC ABG pO2 ABG pO2 ABG HCO3 ABG O2 Saturation ABG Base Excess ABG Hemoglobin ABG Oxyhemoglobin ABG Sodium ABG Potassium ABG Chloride ABG Glucose Oxyhemoglobin Sodium Potassium Chloride Carbon Dioxide BUN Creatinine Glucose POC Glucose 214 H 129 H 179 H Lactic Acid Calcium Magnesium Ferritin Total Bilirubin Direct Bilirubin AST ALT Alkaline Phosphatase Lactate Dehydrogenase C-Reactive Protein Total Protein Albumin Triglycerides Arterial Blood Glucose Arterial Blood Ionized Calcium Urine WBC (Auto) Coronavirus (PCR) SARS-CoV-2 IgG Ab 06/08/20 06/08/20 06/09/20 18:18 23:35 05:42 WBC RBC Hgb Hct MCV MCH MCHC RDW Lymph % (Auto) Lymph # (Auto) Seg Neutrophils % Seg Neuts % (Manual) Lymphocytes % (Manual) Nucleated RBC % Seg Neutrophils # Seg Neutrophils # Man Lymphocytes # (Manual) Monocytes # (Manual) D-Dimer ABG pH POC ABG pCO2 POC ABG pO2 ABG pO2 ABG HCO3 ABG O2 Saturation ABG Base Excess ABG Hemoglobin ABG Oxyhemoglobin ABG Sodium ABG Potassium ABG Chloride ABG Glucose Oxyhemoglobin Sodium Potassium Chloride Carbon Dioxide BUN Creatinine Glucose POC Glucose 172 H 177 H 137 H Lactic Acid Calcium Magnesium Ferritin Total Bilirubin Direct Bilirubin AST ALT Alkaline Phosphatase Lactate Dehydrogenase C-Reactive Protein Total Protein Albumin Triglycerides Arterial Blood Glucose Arterial Blood Ionized Calcium Urine WBC (Auto) Coronavirus (PCR) SARS-CoV-2 IgG Ab 06/09/20 06/09/20 06/09/20 06:20 07:55 07:55 WBC 12.4 H RBC 3.26 L Hgb 11.1 L Hct 33.4 L D MCV 102 H MCH 34 H MCHC RDW Lymph % (Auto) Lymph # (Auto) Seg Neutrophils % Seg Neuts % (Manual) Lymphocytes % (Manual) Nucleated RBC % Seg Neutrophils # Seg Neutrophils # Man Lymphocytes # (Manual) Monocytes # (Manual) D-Dimer ABG pH 7.466 H POC ABG pCO2 50.7 H POC ABG pO2 53.0 L ABG pO2 ABG HCO3 ABG O2 Saturation ABG Base Excess ABG Hemoglobin ABG Oxyhemoglobin ABG Sodium ABG Potassium 2.9 L ABG Chloride 93.0 L ABG Glucose 138 H Oxyhemoglobin Sodium Potassium 3.0 L Chloride 92.3 L Carbon Dioxide 37 H BUN 21 H Creatinine 0.6 L Glucose 120 H POC Glucose Lactic Acid Calcium Magnesium Ferritin Total Bilirubin Direct Bilirubin AST ALT Alkaline Phosphatase Lactate Dehydrogenase C-Reactive Protein Total Protein Albumin Triglycerides Arterial Blood Glucose 138 H Arterial Blood Ionized Calcium 4.5 L Urine WBC (Auto) Coronavirus (PCR) SARS-CoV-2 IgG Ab 06/09/20 06/09/20 06/10/20 11:22 18:32 04:46 WBC RBC Hgb Hct MCV MCH MCHC RDW Lymph % (Auto) Lymph # (Auto) Seg Neutrophils % Seg Neuts % (Manual) Lymphocytes % (Manual) Nucleated RBC % Seg Neutrophils # Seg Neutrophils # Man Lymphocytes # (Manual) Monocytes # (Manual) D-Dimer ABG pH 7.501 H POC ABG pCO2 POC ABG pO2 126.5 H ABG pO2 ABG HCO3 ABG O2 Saturation ABG Base Excess ABG Hemoglobin 10.3 L ABG Oxyhemoglobin ABG Sodium ABG Potassium ABG Chloride ABG Glucose 220 H Oxyhemoglobin Sodium Potassium Chloride Carbon Dioxide BUN Creatinine Glucose POC Glucose 117 H 121 H Lactic Acid Calcium Magnesium Ferritin Total Bilirubin Direct Bilirubin AST ALT Alkaline Phosphatase Lactate Dehydrogenase C-Reactive Protein Total Protein Albumin Triglycerides Arterial Blood Glucose 220 H Arterial Blood Ionized Calcium Urine WBC (Auto) Coronavirus (PCR) SARS-CoV-2 IgG Ab 06/10/20 06/10/20 06/10/20 05:30 09:38 12:03 WBC RBC Hgb Hct MCV MCH MCHC RDW Lymph % (Auto) Lymph # (Auto) Seg Neutrophils % Seg Neuts % (Manual) Lymphocytes % (Manual) Nucleated RBC % Seg Neutrophils # Seg Neutrophils # Man Lymphocytes # (Manual) Monocytes # (Manual) D-Dimer ABG pH POC ABG pCO2 POC ABG pO2 ABG pO2 ABG HCO3 ABG O2 Saturation ABG Base Excess ABG Hemoglobin ABG Oxyhemoglobin ABG Sodium ABG Potassium ABG Chloride ABG Glucose Oxyhemoglobin Sodium Potassium Chloride Carbon Dioxide BUN Creatinine Glucose POC Glucose 181 H 204 H Lactic Acid Calcium Magnesium Ferritin Total Bilirubin Direct Bilirubin AST ALT Alkaline Phosphatase Lactate Dehydrogenase C-Reactive Protein Total Protein Albumin Triglycerides 738 H Arterial Blood Glucose Arterial Blood Ionized Calcium Urine WBC (Auto) Coronavirus (PCR) SARS-CoV-2 IgG Ab 06/10/20 06/11/20 06/11/20 17:17 00:04 04:38 WBC RBC Hgb Hct MCV MCH MCHC RDW Lymph % (Auto) Lymph # (Auto) Seg Neutrophils % Seg Neuts % (Manual) Lymphocytes % (Manual) Nucleated RBC % Seg Neutrophils # Seg Neutrophils # Man Lymphocytes # (Manual) Monocytes # (Manual) D-Dimer ABG pH 7.479 H POC ABG pCO2 POC ABG pO2 76.7 L ABG pO2 ABG HCO3 ABG O2 Saturation ABG Base Excess ABG Hemoglobin 9.8 L ABG Oxyhemoglobin ABG Sodium 135.8 L ABG Potassium ABG Chloride ABG Glucose 238 H Oxyhemoglobin Sodium Potassium Chloride Carbon Dioxide BUN Creatinine Glucose POC Glucose 156 H 178 H Lactic Acid Calcium Magnesium Ferritin Total Bilirubin Direct Bilirubin AST ALT Alkaline Phosphatase Lactate Dehydrogenase C-Reactive Protein Total Protein Albumin Triglycerides Arterial Blood Glucose 238 H Arterial Blood Ionized Calcium Urine WBC (Auto) Coronavirus (PCR) SARS-CoV-2 IgG Ab 06/11/20 06/11/20 06/11/20 05:21 06:52 11:50 WBC RBC Hgb Hct MCV MCH MCHC RDW Lymph % (Auto) Lymph # (Auto) Seg Neutrophils % Seg Neuts % (Manual) Lymphocytes % (Manual) Nucleated RBC % Seg Neutrophils # Seg Neutrophils # Man Lymphocytes # (Manual) Monocytes # (Manual) D-Dimer ABG pH POC ABG pCO2 POC ABG pO2 ABG pO2 ABG HCO3 ABG O2 Saturation ABG Base Excess ABG Hemoglobin ABG Oxyhemoglobin ABG Sodium ABG Potassium ABG Chloride ABG Glucose Oxyhemoglobin Sodium Potassium Chloride Carbon Dioxide BUN Creatinine Glucose POC Glucose 215 H 187 H Lactic Acid Calcium Magnesium Ferritin Total Bilirubin Direct Bilirubin AST ALT Alkaline Phosphatase Lactate Dehydrogenase C-Reactive Protein Total Protein Albumin Triglycerides 331 H Arterial Blood Glucose Arterial Blood Ionized Calcium Urine WBC (Auto) Coronavirus (PCR) SARS-CoV-2 IgG Ab 06/11/20 06/11/20 06/12/20 17:49 23:35 04:52 WBC RBC Hgb Hct MCV MCH MCHC RDW Lymph % (Auto) Lymph # (Auto) Seg Neutrophils % Seg Neuts % (Manual) Lymphocytes % (Manual) Nucleated RBC % Seg Neutrophils # Seg Neutrophils # Man Lymphocytes # (Manual) Monocytes # (Manual) D-Dimer ABG pH 7.486 H POC ABG pCO2 POC ABG pO2 ABG pO2 ABG HCO3 ABG O2 Saturation ABG Base Excess ABG Hemoglobin 9.4 L ABG Oxyhemoglobin ABG Sodium ABG Potassium 3.2 L ABG Chloride ABG Glucose 209 H Oxyhemoglobin Sodium Potassium Chloride Carbon Dioxide BUN Creatinine Glucose POC Glucose 211 H 200 H Lactic Acid Calcium Magnesium Ferritin Total Bilirubin Direct Bilirubin AST ALT Alkaline Phosphatase Lactate Dehydrogenase C-Reactive Protein Total Protein Albumin Triglycerides Arterial Blood Glucose 209 H Arterial Blood Ionized Calcium Urine WBC (Auto) Coronavirus (PCR) SARS-CoV-2 IgG Ab 06/12/20 06/12/20 06/12/20 05:13 11:47 18:33 WBC RBC Hgb Hct MCV MCH MCHC RDW Lymph % (Auto) Lymph # (Auto) Seg Neutrophils % Seg Neuts % (Manual) Lymphocytes % (Manual) Nucleated RBC % Seg Neutrophils # Seg Neutrophils # Man Lymphocytes # (Manual) Monocytes # (Manual) D-Dimer ABG pH POC ABG pCO2 POC ABG pO2 ABG pO2 ABG HCO3 ABG O2 Saturation ABG Base Excess ABG Hemoglobin ABG Oxyhemoglobin ABG Sodium ABG Potassium ABG Chloride ABG Glucose Oxyhemoglobin Sodium Potassium Chloride Carbon Dioxide BUN Creatinine Glucose POC Glucose 174 H 214 H 194 H Lactic Acid Calcium Magnesium Ferritin Total Bilirubin Direct Bilirubin AST ALT Alkaline Phosphatase Lactate Dehydrogenase C-Reactive Protein Total Protein Albumin Triglycerides Arterial Blood Glucose Arterial Blood Ionized Calcium Urine WBC (Auto) Coronavirus (PCR) SARS-CoV-2 IgG Ab 06/12/20 06/13/20 06/13/20 23:49 05:41 12:30 WBC RBC Hgb Hct MCV MCH MCHC RDW Lymph % (Auto) Lymph # (Auto) Seg Neutrophils % Seg Neuts % (Manual) Lymphocytes % (Manual) Nucleated RBC % Seg Neutrophils # Seg Neutrophils # Man Lymphocytes # (Manual) Monocytes # (Manual) D-Dimer ABG pH POC ABG pCO2 POC ABG pO2 ABG pO2 ABG HCO3 ABG O2 Saturation ABG Base Excess ABG Hemoglobin ABG Oxyhemoglobin ABG Sodium ABG Potassium ABG Chloride ABG Glucose Oxyhemoglobin Sodium Potassium Chloride Carbon Dioxide BUN Creatinine Glucose POC Glucose 160 H 150 H 181 H Lactic Acid Calcium Magnesium Ferritin Total Bilirubin Direct Bilirubin AST ALT Alkaline Phosphatase Lactate Dehydrogenase C-Reactive Protein Total Protein Albumin Triglycerides Arterial Blood Glucose Arterial Blood Ionized Calcium Urine WBC (Auto) Coronavirus (PCR) SARS-CoV-2 IgG Ab 06/13/20 06/13/20 06/13/20 14:14 17:48 23:27 WBC 12.8 H RBC 2.33 L Hgb 8.0 L Hct 23.3 L MCV 100 H MCH 34 H MCHC RDW 15.7 H Lymph % (Auto) Lymph # (Auto) Seg Neutrophils % Seg Neuts % (Manual) 85.0 H Lymphocytes % (Manual) 10.0 L Nucleated RBC % Seg Neutrophils # Seg Neutrophils # Man 10.9 H Lymphocytes # (Manual) Monocytes # (Manual) D-Dimer ABG pH POC ABG pCO2 POC ABG pO2 ABG pO2 ABG HCO3 ABG O2 Saturation ABG Base Excess ABG Hemoglobin ABG Oxyhemoglobin ABG Sodium ABG Potassium ABG Chloride ABG Glucose Oxyhemoglobin Sodium Potassium Chloride Carbon Dioxide BUN Creatinine Glucose POC Glucose 173 H 154 H Lactic Acid Calcium Magnesium Ferritin Total Bilirubin Direct Bilirubin AST ALT Alkaline Phosphatase Lactate Dehydrogenase C-Reactive Protein Total Protein Albumin Triglycerides Arterial Blood Glucose Arterial Blood Ionized Calcium Urine WBC (Auto) Coronavirus (PCR) SARS-CoV-2 IgG Ab 06/14/20 06/14/20 06/14/20 03:58 05:21 07:15 WBC 26.2 H RBC 2.97 L Hgb 9.7 L Hct 29.9 L D MCV 101 H MCH 33 H MCHC RDW 15.3 H Lymph % (Auto) Lymph # (Auto) Seg Neutrophils % Seg Neuts % (Manual) 79.0 H Lymphocytes % (Manual) 5.0 L Nucleated RBC % 3.0 H Seg Neutrophils # Seg Neutrophils # Man 20.7 H Lymphocytes # (Manual) Monocytes # (Manual) 1.3 H D-Dimer ABG pH POC ABG pCO2 51.5 H POC ABG pO2 70.0 L ABG pO2 ABG HCO3 ABG O2 Saturation ABG Base Excess ABG Hemoglobin 10.1 L ABG Oxyhemoglobin ABG Sodium 131.5 L ABG Potassium 3.1 L ABG Chloride 93.0 L ABG Glucose 188 H Oxyhemoglobin Sodium Potassium Chloride Carbon Dioxide BUN Creatinine Glucose POC Glucose 147 H Lactic Acid Calcium Magnesium Ferritin Total Bilirubin Direct Bilirubin AST ALT Alkaline Phosphatase Lactate Dehydrogenase C-Reactive Protein Total Protein Albumin Triglycerides Arterial Blood Glucose 188 H Arterial Blood Ionized Calcium Urine WBC (Auto) Coronavirus (PCR) SARS-CoV-2 IgG Ab 06/14/20 06/14/20 06/14/20 07:15 11:30 11:50 WBC RBC Hgb Hct MCV MCH MCHC RDW Lymph % (Auto) Lymph # (Auto) Seg Neutrophils % Seg Neuts % (Manual) Lymphocytes % (Manual) Nucleated RBC % Seg Neutrophils # Seg Neutrophils # Man Lymphocytes # (Manual) Monocytes # (Manual) D-Dimer ABG pH POC ABG pCO2 POC ABG pO2 ABG pO2 ABG HCO3 ABG O2 Saturation ABG Base Excess ABG Hemoglobin ABG Oxyhemoglobin ABG Sodium ABG Potassium ABG Chloride ABG Glucose Oxyhemoglobin Sodium 135 L Potassium 3.5 L Chloride 90.4 L Carbon Dioxide 38 H BUN Creatinine 0.5 L Glucose 190 H POC Glucose 176 H Lactic Acid Calcium Magnesium Ferritin 1496.0 H Total Bilirubin Direct Bilirubin AST ALT 81 H Alkaline Phosphatase Lactate Dehydrogenase C-Reactive Protein Total Protein Albumin 2.9 L Triglycerides Arterial Blood Glucose Arterial Blood Ionized Calcium Urine WBC (Auto) Coronavirus (PCR) SARS-CoV-2 IgG Ab 06/14/20 06/15/20 06/15/20 23:31 04:00 05:00 WBC RBC Hgb Hct MCV MCH MCHC RDW Lymph % (Auto) Lymph # (Auto) Seg Neutrophils % Seg Neuts % (Manual) Lymphocytes % (Manual) Nucleated RBC % Seg Neutrophils # Seg Neutrophils # Man Lymphocytes # (Manual) Monocytes # (Manual) D-Dimer ABG pH POC ABG pCO2 POC ABG pO2 ABG pO2 ABG HCO3 ABG O2 Saturation ABG Base Excess ABG Hemoglobin ABG Oxyhemoglobin ABG Sodium ABG Potassium ABG Chloride ABG Glucose Oxyhemoglobin Sodium 133 L Potassium Chloride 91.1 L Carbon Dioxide 34 H BUN Creatinine 0.4 L Glucose 159 H POC Glucose 200 H Lactic Acid Calcium Magnesium Ferritin Total Bilirubin 2.00 H Direct Bilirubin AST 47 H ALT 77 H Alkaline Phosphatase Lactate Dehydrogenase C-Reactive Protein Total Protein Albumin 2.6 L Triglycerides 152 H Arterial Blood Glucose Arterial Blood Ionized Calcium Urine WBC (Auto) Coronavirus (PCR) SARS-CoV-2 IgG Ab 06/15/20 06/15/20 06/15/20 05:35 06:27 11:38 WBC RBC Hgb Hct MCV MCH MCHC RDW Lymph % (Auto) Lymph # (Auto) Seg Neutrophils % Seg Neuts % (Manual) Lymphocytes % (Manual) Nucleated RBC % Seg Neutrophils # Seg Neutrophils # Man Lymphocytes # (Manual) Monocytes # (Manual) D-Dimer ABG pH POC ABG pCO2 61.0 H POC ABG pO2 67.9 L ABG pO2 ABG HCO3 ABG O2 Saturation ABG Base Excess ABG Hemoglobin 10.4 L ABG Oxyhemoglobin ABG Sodium 132.7 L ABG Potassium 3.3 L ABG Chloride 92.0 L ABG Glucose 158 H Oxyhemoglobin Sodium Potassium Chloride Carbon Dioxide BUN Creatinine Glucose POC Glucose 148 H 197 H Lactic Acid Calcium Magnesium Ferritin Total Bilirubin Direct Bilirubin AST ALT Alkaline Phosphatase Lactate Dehydrogenase C-Reactive Protein Total Protein Albumin Triglycerides Arterial Blood Glucose 158 H Arterial Blood Ionized Calcium Urine WBC (Auto) Coronavirus (PCR) SARS-CoV-2 IgG Ab 06/15/20 06/15/20 06/16/20 17:29 Unknown 00:01 WBC 20.7 H RBC 2.57 L Hgb 8.9 L Hct 25.8 L MCV 101 H MCH 35 H MCHC 35 H RDW 16.0 H Lymph % (Auto) Lymph # (Auto) Seg Neutrophils % Seg Neuts % (Manual) 83.0 H Lymphocytes % (Manual) 8.0 L Nucleated RBC % Seg Neutrophils # Seg Neutrophils # Man 17.2 H Lymphocytes # (Manual) Monocytes # (Manual) 1.2 H D-Dimer ABG pH POC ABG pCO2 POC ABG pO2 ABG pO2 ABG HCO3 ABG O2 Saturation ABG Base Excess ABG Hemoglobin ABG Oxyhemoglobin ABG Sodium ABG Potassium ABG Chloride ABG Glucose Oxyhemoglobin Sodium Potassium Chloride Carbon Dioxide BUN Creatinine Glucose POC Glucose 231 H 257 H Lactic Acid Calcium Magnesium Ferritin Total Bilirubin Direct Bilirubin AST ALT Alkaline Phosphatase Lactate Dehydrogenase C-Reactive Protein Total Protein Albumin Triglycerides Arterial Blood Glucose Arterial Blood Ionized Calcium Urine WBC (Auto) Coronavirus (PCR) SARS-CoV-2 IgG Ab 06/16/20 06/16/20 06/16/20 04:00 04:00 05:22 WBC 13.8 H RBC 2.03 L Hgb 7.6 L Hct 20.7 L MCV 102 H MCH 37 H MCHC 37 H RDW 16.2 H Lymph % (Auto) 4.4 L Lymph # (Auto) 0.6 L Seg Neutrophils % Seg Neuts % (Manual) Lymphocytes % (Manual) Nucleated RBC % Seg Neutrophils # 12.7 H Seg Neutrophils # Man Lymphocytes # (Manual) Monocytes # (Manual) D-Dimer ABG pH POC ABG pCO2 POC ABG pO2 ABG pO2 ABG HCO3 ABG O2 Saturation ABG Base Excess ABG Hemoglobin ABG Oxyhemoglobin ABG Sodium ABG Potassium ABG Chloride ABG Glucose Oxyhemoglobin Sodium 130 L Potassium Chloride 88.9 L Carbon Dioxide 36 H BUN Creatinine 0.3 L Glucose 276 H POC Glucose 250 H Lactic Acid Calcium Magnesium Ferritin Total Bilirubin Direct Bilirubin AST ALT Alkaline Phosphatase Lactate Dehydrogenase C-Reactive Protein Total Protein Albumin Triglycerides Arterial Blood Glucose Arterial Blood Ionized Calcium Urine WBC (Auto) Coronavirus (PCR) SARS-CoV-2 IgG Ab 06/16/20 12:44 WBC RBC Hgb Hct MCV MCH MCHC RDW Lymph % (Auto) Lymph # (Auto) Seg Neutrophils % Seg Neuts % (Manual) Lymphocytes % (Manual) Nucleated RBC % Seg Neutrophils # Seg Neutrophils # Man Lymphocytes # (Manual) Monocytes # (Manual) D-Dimer ABG pH POC ABG pCO2 POC ABG pO2 ABG pO2 ABG HCO3 ABG O2 Saturation ABG Base Excess ABG Hemoglobin ABG Oxyhemoglobin ABG Sodium ABG Potassium ABG Chloride ABG Glucose Oxyhemoglobin Sodium Potassium Chloride Carbon Dioxide BUN Creatinine Glucose POC Glucose 279 H Lactic Acid Calcium Magnesium Ferritin Total Bilirubin Direct Bilirubin AST ALT Alkaline Phosphatase Lactate Dehydrogenase C-Reactive Protein Total Protein Albumin Triglycerides Arterial Blood Glucose Arterial Blood Ionized Calcium Urine WBC (Auto) Coronavirus (PCR) SARS-CoV-2 IgG Ab Chest x-ray: other (none today) Allied health notes reviewed: nursing
[2020-06-16] MEDS: DOCUSATE SODIUM 100 MG/10 ML ORAL LIQD PO SCH ×2 (13:34→21:50)
[2020-06-16] MEDS: INSULIN GLARGINE 100 UNITS/ML SUB-Q SCH (21:50)
[2020-06-16] MEDS: POLYETHYLENE GLYCOL 3350 17 GM POWDER PO SCH (21:50)
[2020-06-17] MEDS: PROPOFOL 500 MG/50 ML IV SCH ×9 (00:48→18:25)
[2020-06-17] MEDS: INSULIN LISPRO 100 UNIT/ML VIAL 3 mL SUB-Q SCH ×4 (01:16→18:25)
[2020-06-17] MEDS: MIDAZOLAM 100 MG in SODIUM CHLORIDE 0.9% 80 ML IV SCH ×2 (03:19→22:28)
[2020-06-17] MEDS: methylPREDNISolone Sod Succinate 40 MG/1 ML INJ IV SCH ×2 (06:00→18:25)
[2020-06-17] MEDS: fentaNYL DRIP Premix 2,000 MCG/100 ML BAG IV SCH ×4 (07:20→20:56)
[2020-06-17] MEDS: NORepinephrine/NS 4 MG-250 ML 4 MG/250 ML BAG IV SCH ×2 (07:47→16:10)
[2020-06-17] MEDS: IPRATROPIUM/ALBUTEROL SULFATE 3 ML AMPUL.NEB IH SCH ×3 (08:44→19:42)
[2020-06-17] MEDS: ENOXAPARIN 120 MG/0.8 ML INJ SUB-Q SCH ×2 (10:38→22:31)
[2020-06-17] MEDS: FAMOTIDINE 20 MG TAB PO SCH ×2 (10:39→22:31)
[2020-06-17] MEDS: FOLIC ACID 1 MG TAB PO SCH (10:39)
[2020-06-17] MEDS: SENNOSIDES 8.6 MG TAB PO SCH ×2 (10:39→22:32)
[2020-06-17] MEDS: QUEtiapine 100 MG TAB PO SCH ×2 (10:39→22:32)
--- NOTE | 2020-06-17 11:30 | Progress Note ---
Assessment and Plan Assessment and plan: - Acute hypoxemic respiratory failure; Patient intubated and on vent support --Severe COVID-19 bilateral pneumonia Coronavirus protocol: IV steroid therapy, completed remdesivir, isolation precautions, contact precautions, prone positioning while in bed, pulmonary toilet. ID following SARS CoV-2 IgG positive patient is NOT a candidate for COVID convalescent plasma --Severe sepsis/septic shock, due to COVID 19 PNA cont pressors as needed -- Acute kidney injury (SEN) , likely vasomotor nephropathy Resolved, IV fluids, avoid nephrotoxins -- Alcohol dependence; no episodes of withdrawal symptoms Thiamine, folic acid, multivitamin, CIWA protocol. -- Elevated liver function tests Suspected secondary to alcoholic liver disease. Supportive care, alcohol cessat ion, patient counseled. -- DVT prophylaxis On therapeutic Lovenox 06/16/2020. Patient currently on mechanical ventilation with AC mode rate 30, tidal volume 500, FiO2 70% and PEEP of 16. Continue anticoagulation with Lovenox 110 milligrams subcu every 12 hours. Wean sedation of fentanyl/Versed a s needed. Currently with IV steroids of Solu-Medrol 40 mg IV every 12 hours. Patient will likely need tracheostomy per pulmonary recommendations. Continue pressors to maintain MAP > 65. 06/17/2020. Patient currently on mechanical ventilation with AC mode rate 30, tidal volume 500, FiO2 65% and PEEP of 16. Continue anticoagulation with Lovenox 110 milligrams subcu every 12 hours. Wean sedation of fentanyl/Versed as needed. Currently with IV steroids of Solu-Medrol 40 mg IV every 12 hours. Patient will likely need tracheostomy per pulmonary recommendations. The high probability of a clinically significant, sudden or life threatening deterioration of the [respiratory] system(s) required my full and direct attention, intervention and personal management. The aggregate critical care time was [32] minutes. This time is in addition to time spent performing reported procedures but includes the following: [x] Data Review and interpretation [x] Patient assessment and monitoring of vital signs [x] Documentation [x] Medication orders and management History Interval history: no new issues Hospitalist Physical - Constitutional Vitals: Temp Pulse Resp BP Pulse Ox 99.1 F 123 H 13 149/98 93 06/17/20 08:00 06/17/20 08:44 06/17/20 06:45 06/17/20 08:44 06/17/20 08:44 General appearance: Present: no acute distress, well-nourished - EENT Eyes: Present: PERRL, EOM intact ENT: hearing intact, clear oral mucosa, dentition normal - Neck Neck: Present: supple, normal ROM - Respiratory Respiratory effort: normal Respiratory: bilateral: CTA - Cardiovascular Rhythm: regular Heart Sounds: Present: S1 & S2. Absent: gallop, rub - Extremities Extremities: no ischemia, No edema, Full ROM - Abdominal General gastrointestinal: soft, non-tender, non-distended, normal bowel sounds - Integumentary Integumentary: Present: clear, warm, dry - Neurologic Neurologic: CNII-XII intact, moves all extremities Results - Labs CBC & Chem 7: 06/16/20 04:00 06/16/20 04:00 Labs: Laboratory Last Values WBC 13.8 K/mm3 (4.5-11.0) H 06/16/20 04:00 RBC 2.03 M/mm3 (3.65-5.03) L 06/16/20 04:00 Hgb 7.6 gm/dl (11.8-15.2) L 06/16/20 04:00 Hct 20.7 % (35.5-45.6) L 06/16/20 04:00 MCV 102 fl (84-94) H 06/16/20 04:00 MCH 37 pg (28-32) H 06/16/20 04:00 MCHC 37 % (32-34) H 06/16/20 04:00 RDW 16.2 % (13.2-15.2) H 06/16/20 04:00 Plt Count 208 K/mm3 (140-440) 06/16/20 04:00 Lymph % (Auto) 4.4 % (13.4-35.0) L 06/16/20 04:00 [place] % (Auto) 3.6 % (0.0-7.3) 06/16/20 04:00 Eos % (Auto) 0.0 % (0.0-4.3) 06/16/20 04:00 Baso % (Auto) 0.3 % (0.0-1.8) 06/16/20 04:00 Lymph # (Auto) 0.6 K/mm3 (1.2-5.4) L 06/16/20 04:00 [place] # (Auto) 0.5 K/mm3 (0.0-0.8) 06/16/20 04:00 Eos # (Auto) 0.0 K/mm3 (0.0-0.4) 06/16/20 04:00 Baso # (Auto) 0.0 K/mm3 (0.0-0.1) 06/16/20 04:00 Add Manual Diff Complete 06/15/20 Unknown Total Counted 100 06/15/20 Unknown Seg Neutrophils % Assistant Credit Manager 06/16/20 04:00 Seg Neuts % (Manual) 83.0 % (40.0-70.0) H 06/15/20 Unknown Band Neutrophils % 0 % 06/15/20 Unknown Lymphocytes % (Manual) 8.0 % (13.4-35.0) L 06/15/20 Unknown Reactive Lymphs % (Man) 0 % 06/15/20 Unknown Monocytes % (Manual) 6.0 % (0.0-7.3) 06/15/20 Unknown Eosinophils % (Manual) 0 % (0.0-4.3) 06/15/20 Unknown Basophils % (Manual) 0 % (0.0-1.8) 06/15/20 Unknown Metamyelocytes % 3.0 % 06/15/20 Unknown Myelocytes % 0 % 06/15/20 Unknown Promyelocytes % 0 % 06/15/20 Unknown Blast Cells % 0 % 06/15/20 Unknown Nucleated RBC % Not Reportable 06/15/20 Unknown Seg Neutrophils # 12.7 K/mm3 (1.8-7.7) H 06/16/20 04:00 Seg Neutrophils # Man 17.2 K/mm3 (1.8-7.7) H 06/15/20 Unknown Band Neutrophils # 0.0 K/mm3 06/15/20 Unknown Lymphocytes # (Manual) 1.7 K/mm3 (1.2-5.4) 06/15/20 Unknown Abs React Lymphs (Man) 0.0 K/mm3 06/15/20 Unknown Monocytes # (Manual) 1.2 K/mm3 (0.0-0.8) H 06/15/20 Unknown Eosinophils # (Manual) 0.0 K/mm3 (0.0-0.4) 06/15/20 Unknown Basophils # (Manual) 0.0 K/mm3 (0.0-0.1) 06/15/20 Unknown Metamyelocytes # 0.6 K/mm3 06/15/20 Unknown Myelocytes # 0.0 K/mm3 06/15/20 Unknown Promyelocytes # 0.0 K/mm3 06/15/20 Unknown Blast Cells # 0.0 K/mm3 06/15/20 Unknown WBC Morphology Not Reportable 06/15/20 Unknown Hypersegmented Neuts Not Reportable 06/15/20 Unknown Hyposegmented Neuts Not Reportable 06/15/20 Unknown Hypogranular Neuts Not Reportable 06/15/20 Unknown Smudge Cells Not Reportable 06/15/20 Unknown Toxic Granulation Not Reportable 06/15/20 Unknown Toxic Vacuolation Not Reportable 06/15/20 Unknown Dohle Bodies Not Reportable 06/15/20 Unknown Pelger-Huet Anomaly Not Reportable 06/15/20 Unknown Jason Rods Not Reportable 06/15/20 Unknown Platelet Estimate Consistent w auto 06/15/20 Unknown Clumped Platelets Not Reportable 06/15/20 Unknown Plt Clumps, EDTA Not Reportable 06/15/20 Unknown Large Platelets Not Reportable 06/15/20 Unknown Giant Platelets Not Reportable 06/15/20 Unknown Platelet Satelliting Not Reportable 06/15/20 Unknown Plt Morphology Comment Not Reportable 06/15/20 Unknown RBC Morphology Not Reportable 06/15/20 Unknown Dimorphic RBCs Not Reportable 06/15/20 Unknown Polychromasia Few 06/15/20 Unknown Hypochromasia 1+ 06/15/20 Unknown Poikilocytosis Not Reportable 06/15/20 Unknown Anisocytosis 1+ 06/15/20 Unknown Microcytosis Not Reportable 06/15/20 Unknown Macrocytosis 1+ 06/15/20 Unknown Spherocytes Not Reportable 06/15/20 Unknown Pappenheimer Bodies Not Reportable 06/15/20 Unknown Sickle Cells Not Reportable 06/15/20 Unknown Target Cells Not Reportable 06/15/20 Unknown Tear Drop Cells Not Reportable 06/15/20 Unknown Ovalocytes Not Reportable 06/15/20 Unknown Stomatocytes Few 06/14/20 07:15 Helmet Cells Not Reportable 06/15/20 Unknown Sinclair-[place] Seminary Bodies Not Reportable 06/15/20 Unknown [place] Rings Not Reportable 06/15/20 Unknown [place] Cells Not Reportable 06/15/20 Unknown Bite Cells Not Reportable 06/15/20 Unknown Crenated Cell Not Reportable 06/15/20 Unknown Elliptocytes Not Reportable 06/15/20 Unknown Acanthocytes (Spur) Not Reportable 06/15/20 Unknown Rouleaux Not Reportable 06/15/20 Unknown Hemoglobin C Crystals Not Reportable 06/15/20 Unknown Schistocytes Few 06/15/20 Unknown Malaria parasites Not Reportable 06/15/20 Unknown Josue Bodies Not Reportable 06/15/20 Unknown Hem Pathologist Commnt No 06/15/20 Unknown PT 14.4 Sec. (12.2-14.9) 06/13/20 14:14 INR 1.13 (0.87-1.13) 06/13/20 14:14 D-Dimer 1887.82 ng/mlDDU (0-234) H 05/20/20 08:16 ABG pH 7.416 (7.320-7.450) 06/17/20 03:40 POC ABG pCO2 65.7 mmHg (32.0-48.0) H 06/17/20 03:40 ABG pCO2 69.6 mm Hg 06/05/20 12:35 POC ABG pO2 85.1 mmHg (83-108) 06/17/20 03:40 ABG pO2 127.9 mm Hg (80.0-90.0) H 06/05/20 12:35 POC ABG HCO3 41.3 06/17/20 03:40 ABG HCO3 41.1 mmol/L (20.0-26.0) H 06/05/20 12:35 ABG O2 Saturation 98.3 % (95.0-99.0) 06/05/20 12:35 ABG O2 Content 18.2 (0.0-44) 06/05/20 12:35 POC ABG Base Excess 14.1 06/17/20 03:40 ABG Base Excess 13.0 mmol/L (-2.0-3.0) H 06/05/20 12:35 ABG Hemoglobin 11.9 (12.0-17.5) L 06/17/20 03:40 ABG Oxyhemoglobin 86.3 (94-98) L 05/09/20 15:56 ABG Carboxyhemoglobin 2.2 % (0.0-5.0) 06/05/20 12:35 ABG Methemoglobin 0.5 % (0.0-1.5) 06/05/20 12:35 ABG Sodium 137.5 mmol/L (136.0-145.0) 06/17/20 03:40 ABG Potassium 4.0 mmol/L (3.40-4.50) 06/17/20 03:40 ABG Chloride 93.0 mmol/L (98-107) L 06/17/20 03:40 ABG Glucose 244 mg/dL (65-95) H 06/17/20 03:40 Oxyhemoglobin 95.6 % (95.0-99.0) 06/05/20 12:35 Carboxyhemoglobin 1.3 (0.5-1.5) 05/09/20 15:56 FiO2 65 06/17/20 03:40 Sodium 130 mmol/L (137-145) L 06/16/20 04:00 Potassium 3.8 mmol/L (3.6-5.0) 06/16/20 04:00 Chloride 88.9 mmol/L (98-107) L 06/16/20 04:00 Carbon Dioxide 36 mmol/L (22-30) H 06/16/20 04:00 Anion Gap 9 mmol/L 06/16/20 04:00 BUN 20 mg/dL (9-20) 06/16/20 04:00 Creatinine 0.3 mg/dL (0.8-1.3) L 06/16/20 04:00 Estimated GFR > 60 ml/min 06/16/20 04:00 BUN/Creatinine Ratio 67 % 06/16/20 04:00 Glucose 276 mg/dL (75-100) H 06/16/20 04:00 POC Glucose 248 mg/dL (70-105) H 06/17/20 10:54 Lactic Acid 1.80 mmol/L (0.7-2.0) 05/09/20 Unknown Calcium 8.4 mg/dL (8.4-10.2) 06/16/20 04:00 Phosphorus 3.10 mg/dL (2.5-4.5) 06/15/20 04:00 Magnesium 1.90 mg/dL (1.7-2.3) 06/15/20 04:00 Ferritin 1496.0 ng/mL (30.0-300.0) H 06/14/20 11:50 Total Bilirubin 2.00 mg/dL (0.1-1.2) H 06/15/20 04:00 Direct Bilirubin 0.6 mg/dL (0-0.2) H 05/11/20 07:30 Indirect Bilirubin 0.9 mg/dL 05/11/20 07:30 AST 47 units/L (5-40) H 06/15/20 04:00 ALT 77 units/L (7-56) H 06/15/20 04:00 Alkaline Phosphatase 96 units/L (35-129) 06/15/20 04:00 Lactate Dehydrogenase 705 units/L (91-180) H 05/20/20 08:16 C-Reactive Protein 3.10 mg/dL (0.00-1.30) H 05/20/20 08:16 Total Protein 6.3 g/dL (6.3-8.2) 06/15/20 04:00 Albumin 2.6 g/dL (3.9-5) L 06/15/20 04:00 Albumin/Globulin Ratio 0.7 % 06/15/20 04:00 Triglycerides 152 mg/dL (2-149) H 06/15/20 05:00 Procalcitonin 0.94 ng/mL (<0.15) 06/14/20 11:50 Arterial Blood Glucose 244 mg/dL (65-95) H 06/17/20 03:40 Arterial Blood Ionized Calcium 4.6 mg/dL (4.6-5.3) 06/17/20 03:40 Urine Color Fauzia (Yellow) 05/10/20 Unknown Urine Turbidity Clear (Clear) 05/10/20 Unknown Urine pH 5.0 (5.0-7.0) 05/10/20 Unknown Ur Specific [place] 1.019 (1.003-1.030) 05/10/20 Unknown Urine Protein 100 mg/dl mg/dL (Negative) 05/10/20 Unknown Urine Glucose (UA) Neg mg/dL (Negative) 05/10/20 Unknown Urine Ketones Neg mg/dL (Negative) 05/10/20 Unknown Urine Blood Lg (Negative) 05/10/20 Unknown Urine Nitrite Neg (Negative) 05/10/20 Unknown Urine Bilirubin Neg (Negative) 05/10/20 Unknown Urine Urobilinogen 2.0 mg/dL (<2.0) 05/10/20 Unknown Ur Leukocyte Esterase Neg (Negative) 05/10/20 Unknown Urine WBC (Auto) 11.0 /HPF (0.0-6.0) H 05/10/20 Unknown Urine RBC (Auto) 2.0 /HPF (0.0-6.0) 05/10/20 Unknown U Epithel Cells (Auto) 1.0 /HPF (0-13.0) 05/10/20 Unknown Urine Bacteria (Auto) 1+ /HPF (Negative) 05/10/20 Unknown Urine Mucus Few /HPF 05/10/20 Unknown Plasma/Serum Alcohol < 0.01 % (0-0.07) 05/09/20 14:20 Coronavirus (PCR) Positive (Negative) A 05/10/20 Unknown SARS-CoV-2 IgG Ab Reactive (NonReactive) A 05/11/20 07:30 Microbiology: Microbiology 06/14/20 14:39 Peripheral/Venous Blood Culture - Preliminary NO GROWTH AFTER 48 HOURS 06/14/20 14:39 Peripheral/Venous Blood Culture - Preliminary NO GROWTH AFTER 48 HOURS - Diagnostic Impressions Diagnostic Impressions: Echocardiogram 05/20/20 13:02 Transthoracic Echocardiogram Indication: CHF BP: 97/73 Conclusions *The study quality is technically very difficult and limited. *The left ventricular chamber size, wall thickness and systolic function are within normal limits. There are no wall motion abnormalities observed. Ejection fraction is normal. *The estimated ejection fraction is 60-65%. *The pericardium appears normal. Findings Procedure Info: The study quality is technically difficult. Left Ventricle: The left ventricular chamber size, wall thickness and systolic function are within normal limits. There are no wall motion abnormalities observed. Ejection fraction is normal. The estimated ejection fraction is 60-65%. Abnormal left ventricular diastolic filling is observed, consistent with impaired relaxation. Left Atrium: The left atrium is normal in size with no visual thrombus identified. Right Ventricle: The right ventricle is not well visualized. Right Atrium: The right atrium is not well visualized. Aortic Valve: The aortic valve is trileaflet. The leaflets are thin with normal excursion. There is no aortic stenosis or regurgitation present. Mitral Valve: The mitral valve appears normal in structure and function. Tricuspid Valve: The tricuspid valve appears normal in structure and function. Unable to estimate the right ventricular systolic pressure. Pulmonic Valve: The pulmonic valve is not well visualized. There is no evidence of pulmonic regurgitation. There is no pulmonic stenosis. Pericardium: The pericardium appears normal. Pulmonary Artery: The main pulmonary artery is not well visualized. Venous: The inferior vena cava appears normal in size. Measurements Chambers 2D Name Value Normal Range IVSd (2D) 0.83 cm (0.6 - 1.1) LVPWd (2D) 0.83 cm (0.6 - 1.1) LVIDd (2D) 3.88 cm (3.7 - 5.6) LVIDs (2D) 2.46 cm (2 - 3.8) LV FS (2D) 36.52 % - EF Teichholz (2D) 66.97 % - Ao root diameter (2D) 3.47 cm (2 - 3.7) Volumes/Mass Name Value Normal Range LA ESV SP 4CH (A/L) 22.4 ml - LA ESV SP 2CH (A/L) 22.89 ml - LA ESV BP (A/L) 23.06 ml - LA ESV SP 4CH (MOD) 21.09 ml - LA ESV SP 2CH (MOD) 22.44 ml - Diastolic/Systolic Function Name Value Normal Range MV E-wave Vmax 0.48 m/sec - MV deceleration time 156.3 msec - MV A-wave Vmax 0.59 m/sec - MV E:A ratio 0.81 ratio - Aortic Valve Name Value Normal Range AV Vmax 0.97 m/sec - AV VTI 14.49 cm - AV peak gradient 3.73 mmHg - AV mean gradient 1.89 mmHg - LVOT diameter 2.09 cm - LVOT Vmax 0.72 m/sec - LVOT VTI 10.21 cm - LVOT peak gradient 2.05 mmHg - LVOT mean gradient 1.03 mmHg - SV LVOT 35.17 ml - INNA (continuity Vmax) 2.55 cm2 - INNA (continuity VTI) 2.43 cm2 - Tricuspid Valve Name Value Normal Range TV E-wave Vmax 0.37 m/sec - Pulmonic Valve/Qp:Qs Name Value Normal Range PV Vmax 0.72 m/sec - PV peak gradient 2.06 mmHg - RVOT Vmax 0.85 m/sec - RVOT VTI 9.89 cm - RVOT peak gradient 2.9 mmHg - PV acceleration time 72.31 msec - Cantor/IV: Voiding Method Condom Catheter IV Catheter Type [Right Upper PICC Line arm] IV Catheter Type [Right CVL Internal Jugular] IV Catheter Type [Right Peripheral IV Forearm] IV Catheter Type [Left Forearm Peripheral IV ] IV Catheter Type [Left Wrist] INT / Saline Lock IV Catheter Type [Right Hand] INT / Saline Lock IV Catheter Type [Left Hand] INT / Saline Lock IV Catheter Type [Left Peripheral IV Antecubital] Active Medications - Current Medications Current Medications: Generic Name Dose Route Start Last Admin Trade Name Freq PRN Reason Stop Dose Admin Acetaminophen 650 mg 06/14/20 10:07 06/14/20 19:02 Tylenol FEEDTUBE 650 mg Q4H PRN Administration Pain, Mild (1-3) Albuterol/Ipratropium 1 ampul 06/14/20 20:00 06/17/20 08:44 Duoneb *Not For Prn Use* IH 06/19/20 08:01 1 ampul BIDRT DESIRE Administration Alprazolam 0.25 mg 05/20/20 17:53 06/08/20 08:29 Xanax PO 0.25 mg Q8H PRN Administration Anxiety Lipase/Protease/Amylase 1 each 05/22/20 13:01 Pancrecaden [place] 10,500 Unit FEEDTUBE PRN PRN For Clogged Feeding Tube Bisacodyl 10 mg 06/07/20 10:00 06/17/20 10:39 Dulcolax MA 10 mg QDAY DESIRE Administration Docusate Sodium 100 mg 05/28/20 14:00 06/16/20 21:50 Colace PO 100 mg BID DESIRE Administration Enoxaparin Sodium 110 mg 05/10/20 22:00 06/17/20 10:38 Enoxaparin 1 mg/kg (110 mg) 110 mg SUB-Q Administration Q12HR DESIRE Protocol Famotidine 20 mg 05/25/20 22:00 06/17/20 10:39 Pepcid PO 20 mg BID DESIRE Administration Fentanyl 50 mcg 06/09/20 13:53 Sublimaze IV Q10MIN PRN ANALGESIA Folic Acid 1 mg 05/09/20 15:36 06/17/20 10:39 Folvite PO 1 mg QDAY DESIRE Administration Hydrophilic Ointment 1 applic 05/21/20 20:33 Vaseline Lip Therapy TP Q2HR PRN Dry Lips Midazolam HCl 100 mg/ Sodium 100 mls @ 2 mls/hr 06/02/20 14:00 06/17/20 03:19 Chloride IV 5 mg/hr TITR DESIRE 5 mls/hr Administration Protocol 2 MG/HR Norepinephrine 4 mg in 250 mls @ 7.5 mls/hr 06/04/20 16:00 06/17/20 07:47 Levophed Drip 4 Mg/Ns 250 Ml IV 8 mcg/min TITR DESIRE 30 mls/hr Administration Protocol 2 MCG/MIN Propofol 500 mg in 50 mls @ 3.309 mls/hr 06/08/20 11:00 06/17/20 10:31 Propofol IV 30 mcg/kg/min TITR DESIRE 19.854 mls/hr Administration Protocol 5 MCG/KG/MIN Fentanyl Citrate 2,000 mcg in 100 mls @ 5.32 mls/hr 06/09/20 14:00 06/17/20 10:34 Fentanyl Drip Premix IV 3 mcg/kg/hr TITR DESIRE 15.96 mls/hr Administration Protocol 1 MCG/KG/HR Vasopressin 20 unit/ Sodium 101 mls @ 9.09 mls/hr 06/09/20 18:00 Chloride IV TITR DESIRE Protocol 0.03 UNITS/MIN Insulin Glargine 10 units 06/16/20 22:00 06/16/20 21:50 Lantus SUB-Q 10 units QHS DESIRE Administration Insulin Human Lispro 0 unit 05/29/20 14:00 06/17/20 11:03 Humalog SUB-Q 4 unit Q6H [facility] Administration Protocol Methylprednisolone Sodium Succinate 40 mg 05/20/20 18:00 06/17/20 06:00 Solu-Medrol IV 40 mg Q12H DESIRE Administration Metoprolol Tartrate 5 mg 05/20/20 17:52 06/14/20 08:19 Metoprolol IV 5 mg Q6HR PRN Administration Tachyarrhythmias Midazolam HCl 2 mg 06/02/20 13:11 06/14/20 07:50 Versed IV 2 mg Q10MIN PRN Administration Sedation Multi-Ingred Cream/Lotion/Oil/Oint 1 applic 05/21/20 20:33 Artificial Tears Ophth Oint OU Q4HR PRN Dry Eye(s) Polyethylene Glycol 17 gm 05/28/20 22:00 06/16/20 21:50 Miralax 3350 PO 17 gm QHS DESIRE Administration Quetiapine Fumarate 300 mg 06/10/20 22:00 06/17/20 10:39 Seroquel PO 300 mg BID DESIRE Administration Senna 17.2 mg 06/07/20 10:00 06/17/20 10:39 Senokot PO 17.2 mg BID DESIRE Administration Simple Syrup 15 ml 05/22/20 13:01 Simple Syrup FEEDTUBE PRN PRN Hypoglycemia Simple Syrup 30 ml 05/22/20 13:01 Simple Syrup FEEDTUBE PRN PRN Hypoglycemia Sodium Bicarbonate 325 mg 05/22/20 13:01 Sodium Bicarbonate FEEDTUBE PRN PRN For Clogged Feeding Tube Sodium Chloride 10 ml 05/09/20 22:00 06/17/20 10:55 Sodium Chloride Flush Syringe 10 Ml IV 10 ml BID DESIRE Administration Nutrition/Malnutrition Assess - Dietary Evaluation Nutrition/Malnutrition Findings: Nutrition Notes Start: 05/17/20 14:10 Freq: Status: Active Protocol: Document 06/15/20 14:11 EN (Rec: 06/15/20 14:17 EN [email or web address]) Co-Sign 06/15/20 14:11 LM Nutrition Notes Initial or Follow up Reassessment Current Diagnosis Sepsis,Respiratory Failure Other Pertinent Diagnosis Bilat pneu, COVID-19 (+), EtOH dependence Current Diet Vital HP at 75 ml/hr (goal rate) Labs/Tests Na 133 Glu 159 Pertinent Medications Propofol Norepinephrine Fentanyl Solu-medrol Height 6 ft Weight 106.3 kg [place] Body Weight (kg) 80.90 BMI 31.8 Weight change and time frame Wt change noted Weight Status Obese Subjective/Other Information F/u for TF tolerance. Pt tolerating TF at goal rate. Per RN, pt has increased yellow oral secretions. RN requesting to lower TF rate. Percent of energy/protein needs met: 96%/98% Burn Absent Trauma Absent GI Symptoms None Current % PO Negligible Minimum of two criteria No physical signs of malnutrition #1 Nutrition Diagnosis Inadequate oral intake Diagnosis Progress(for reassessment Continues documentation) Is patient on ventilator? Yes Is Patient Ambulatory and/or Out of Bed No REE-([place]-confined to bed) 2350.824 Kcal/Kg value to use for calculation 17 Approximate Energy Requirements Using 1807 kcal/Kg Calculation Used for Recommendations Kcal/kg Additional Notes Pro needs >2g/kg IBW: at least 162g/day Fluid needs 1ml/kcal Nutrition Intervention Change Diet Order: Continue TF with rate change Nutrition Support: Vital HP at 65ml/hr with 50ml water flush q4h. For hyponatremia, flush 50 ml q6h Kcal 1,560 Protein (gm) 136 Fluid (mL) 1,304 Goal #1 TF tolerance Goal #2 TF (at goal rate) to meet at least 75% energy and pro needs Anticipated Discharge Needs: Unable to identify at this time Follow-Up By: 06/17/20 Additional Comments Follow for TF rate/tolerance and oral secretion
[2020-06-17] MEDS: ACETAMINOPHEN 325 MG/10.15 ML ORAL LIQD UNIT DOSE FEEDTUBE PRN (12:01)
[2020-06-17] MEDS: MIDAZOLAM 2 MG/2 ML INJ IV PRN (12:02)
[2020-06-17] MEDS: METOPROLOL TARTRATE 5 MG/5 ML INJ IV PRN (12:36)
--- NOTE | 2020-06-17 17:20 | Progress Note ---
Assessment and Plan Acute hypoxemic respiratory failure due to COVID-19 Severe COVID infection Severe Sepsis Bilateral pneumonia Acute kidney injury (SEN) with acute tubular necrosis (ATN)-improving h/o Alcohol dependence Elevated liver function tests probably secondary COVID Continue to wean supplemental oxygen for O2 sats>90% Worsening respiratory status, reculture r/o super-imposed infection Continue lung protective strategies CXR daily, monitor airway pressures closely - VAP bundle addressed, aspiration precautions HOB >40 - Continue lung protective strategies, permissive hypercapnic acceptable. - continue bronchodilators with pulmonary hygiene per RT - wean per pulmonary driven protocols otherwise - accuchecks with glycemic control per SSI (While critically ill target blood glucose of 140-180 mg/dL; avoid hypoglycemia) - sedation prn for target RASS -1 to -2 - continue enteral nutritional support at goal rate as tolerated - Prone positioning as tolerated and indicated - Monitor liver function test , avoid hepatotoxic agents - Avoid nephrotoxins, renally dose all medications, conservative fluid management - continue to avoid benzodiazepines, reduce the possibility of delirium - prn analgesia per CPOT score - Maintenance of sleep-wake cycle, avoid delirium - continue to avoid benzodiazepines, reduce the possibility of delirium - aspiration precautions -Stress ulcer prophylaxis - PT/OT/ROM exercises - continue mobility protocols for pressure ulcer prevention -CXR, ABG as clinically indicated -CBC, BMP as clinically indicated -Supportive transfusions to keep HgB >7g/dL - Monitor hemodynamics closely - continue other care per attending / other consultants COVID SPECIFIC INTERVENTIONS - SARS CoV-2 IgG positive patient is NOT a candidate for COVID convalescent plasma -Completed remdesivir -continue steroids: on Solu-Medrol, wean -Monitor inflammatory markers - ferritin, Ddimer, CRP, LDH every 3 days -Continue anticoagulation per System Protocol based on d-dimer -Continue contact and airborne isolation .... Re-evaluate in am & prn CONDITION: CRITICAL PROGNOSIS: GUARDED CODE STATUS: FULL CODE The high probability of a clinically significant, sudden or life-threatening deterioration of the [respiratory, cardiovascular, hematologic & neurologic] system(s) required my full and direct attention, intervention and personal management. The aggregate critical care time was [32] minutes without overlap. Time includes spent on; [x] Data Review and interpretation [x] Patient assessment and monitoring of vital signs [x] Documentation [x] Medication orders and management Subjective Date of service: 06/17/20 Principal diagnosis: Ac hypoxemic resp failure; COVID-19; Severe Sepsis; Shaggy PNA; Alcohol Abuse Interval history: Patient is seen today for: Acute hypoxemic respiratory failure due to COVID-19; Severe Sepsis; Bilateral pneumonia; Alcohol dependence; Elevated liver function tests Seen and examined at bedside; 24hour events reviewed; nursing and respiratory care staff consulted; no adverse overnight events reported to me; resting in bed; remains on MVS with increasing ventilatory requirements, FiO2 at 70% PEEP +16 Objective Vital Signs - 12hr 06/17/20 06/17/20 06/17/20 05:30 05:45 06:00 Temperature Pulse Rate 114 H 112 H 109 H Pulse Rate [ From Monitor] Respiratory 12 13 12 Rate Blood Pressure 114/63 110/69 107/65 O2 Sat by Pulse 93 95 94 Oximetry 06/17/20 06/17/20 06/17/20 06:15 06:30 06:45 Temperature Pulse Rate 111 H 109 H 105 H Pulse Rate [ From Monitor] Respiratory 14 20 13 Rate Blood Pressure 118/67 117/69 123/67 O2 Sat by Pulse 94 95 94 Oximetry 06/17/20 06/17/20 06/17/20 07:00 07:15 07:30 Temperature Pulse Rate 111 H 110 H 109 H Pulse Rate [ From Monitor] Respiratory 11 L 12 12 Rate Blood Pressure 125/67 107/73 99/72 O2 Sat by Pulse 95 96 92 Oximetry 06/17/20 06/17/20 06/17/20 07:45 08:00 08:15 Temperature 99.1 F Pulse Rate 113 H 109 H 117 H Pulse Rate [ 109 H From Monitor] Respiratory 12 14 20 Rate Blood Pressure 103/67 107/73 137/92 O2 Sat by Pulse 93 94 92 Oximetry 06/17/20 06/17/20 06/17/20 08:30 08:44 08:45 Temperature Pulse Rate 127 H 123 H 115 H Pulse Rate [ From Monitor] Respiratory 23 28 H Rate Blood Pressure 151/102 149/98 149/98 O2 Sat by Pulse 91 93 91 Oximetry 06/17/20 06/17/20 06/17/20 09:00 09:15 09:30 Temperature Pulse Rate 128 H 148 H 129 H Pulse Rate [ From Monitor] Respiratory 26 H 36 H 26 H Rate Blood Pressure 141/93 155/92 155/92 O2 Sat by Pulse 92 94 96 Oximetry 06/17/20 06/17/20 06/17/20 09:45 10:00 10:15 Temperature Pulse Rate 133 H 132 H 149 H Pulse Rate [ From Monitor] Respiratory 28 H 24 28 H Rate Blood Pressure 161/91 129/76 139/94 O2 Sat by Pulse 93 95 93 Oximetry 06/17/20 06/17/20 06/17/20 10:30 10:45 11:00 Temperature Pulse Rate 142 H 115 H 140 H Pulse Rate [ From Monitor] Respiratory 39 H 41 H 36 H Rate Blood Pressure 139/94 139/82 137/67 O2 Sat by Pulse 92 87 94 Oximetry 06/17/20 06/17/20 06/17/20 11:16 11:30 11:46 Temperature Pulse Rate 154 H 158 H Pulse Rate [ From Monitor] Respiratory 28 H 31 H 29 H Rate Blood Pressure 131/67 137/67 121/70 O2 Sat by Pulse 89 93 93 Oximetry 06/17/20 06/17/20 06/17/20 12:00 12:16 12:30 Temperature 99.8 F H Pulse Rate 137 H 157 H 154 H Pulse Rate [ 136 H From Monitor] Respiratory 30 H 38 H 30 H Rate Blood Pressure 111/63 119/73 119/73 O2 Sat by Pulse 90 91 94 Oximetry 06/17/20 06/17/20 06/17/20 12:36 12:45 13:00 Temperature Pulse Rate 155 H 128 H 136 H Pulse Rate [ From Monitor] Respiratory 25 H 29 H Rate Blood Pressure 102/63 105/66 108/64 O2 Sat by Pulse 90 89 Oximetry 06/17/20 06/17/20 06/17/20 13:15 13:30 13:45 Temperature Pulse Rate 136 H 135 H 139 H Pulse Rate [ From Monitor] Respiratory 28 H 29 H 25 H Rate Blood Pressure 114/64 123/67 128/62 O2 Sat by Pulse 89 89 90 Oximetry 06/17/20 06/17/20 06/17/20 14:00 14:15 14:30 Temperature Pulse Rate 138 H 145 H 146 H Pulse Rate [ From Monitor] Respiratory 26 H 29 H 29 H Rate Blood Pressure 110/65 135/72 109/62 O2 Sat by Pulse 89 85 89 Oximetry 06/17/20 06/17/20 06/17/20 14:45 15:00 15:15 Temperature Pulse Rate 152 H 140 H 140 H Pulse Rate [ From Monitor] Respiratory 27 H 29 H 29 H Rate Blood Pressure 111/63 103/64 97/58 O2 Sat by Pulse 91 87 88 Oximetry 06/17/20 06/17/20 06/17/20 15:30 15:45 16:00 Temperature 101.1 F H Pulse Rate 140 H 136 H 139 H Pulse Rate [ 137 H From Monitor] Respiratory 25 H 27 H 26 H Rate Blood Pressure 113/58 107/58 98/59 O2 Sat by Pulse 87 87 87 Oximetry 06/17/20 06/17/20 16:15 16:34 Temperature 101.1 F H Pulse Rate 136 H Pulse Rate [ From Monitor] Respiratory 33 H Rate Blood Pressure 106/61 O2 Sat by Pulse 85 Oximetry Constitutional: agitated, other (middle aged obese male with moderate respiratory effort at rest on MVS) Eyes: non-icteric ENT: oropharynx moist, other (ETT 24 cm CHILO) Neck: supple, no lymphadenopathy, no JVD Effort: mildly labored Ascultation: Bilateral: diminished breath sounds, rhonchi Percussion: Bilateral: not dull Cardiovascular: regular rate and rhythm, other (S1,S2) Gastrointestinal: normoactive bowel sounds, soft, non-tender, non-distended (protuberant) Integumentary: normal Extremities: no cyanosis, pulses normal, no ischemia or petechiae, edema Neurologic: pupils equal and round, other (unable to assess re: AMS) Psychiatric: other (sedated) CBC and BMP: 06/26/20 02:17 06/26/20 02:17 ABG, PT/INR, D-dimer: ABG ABG pH 7.416 (7.320-7.450) 06/17/20 03:40 POC ABG pCO2 65.7 mmHg (32.0-48.0) H 06/17/20 03:40 ABG pCO2 69.6 mm Hg 06/05/20 12:35 POC ABG pO2 85.1 mmHg (83-108) 06/17/20 03:40 ABG pO2 127.9 mm Hg (80.0-90.0) H 06/05/20 12:35 POC ABG HCO3 41.3 06/17/20 03:40 ABG O2 Saturation 98.3 % (95.0-99.0) 06/05/20 12:35 PT/INR, D-dimer PT 14.4 Sec. (12.2-14.9) 06/13/20 14:14 INR 1.13 (0.87-1.13) 06/13/20 14:14 D-Dimer 1887.82 ng/mlDDU (0-234) H 05/20/20 08:16 Abnormal lab findings: Abnormal Labs 05/09/20 05/09/20 05/09/20 12:59 12:59 12:59 WBC 11.8 H RBC Hgb Hct MCV 96 H MCH 34 H MCHC 35 H RDW Lymph % (Auto) 6.9 L Lymph # (Auto) 0.8 L Seg Neutrophils % 87.5 H Seg Neuts % (Manual) Lymphocytes % (Manual) Nucleated RBC % Seg Neutrophils # 10.3 H Seg Neutrophils # Man Lymphocytes # (Manual) Monocytes # (Manual) D-Dimer ABG pH POC ABG pCO2 POC ABG pO2 ABG pO2 ABG HCO3 ABG O2 Saturation ABG Base Excess ABG Hemoglobin ABG Oxyhemoglobin ABG Sodium ABG Potassium ABG Chloride ABG Glucose Oxyhemoglobin Sodium 130 L Potassium 3.5 L Chloride 86.4 L Carbon Dioxide BUN 33 H Creatinine 2.3 H Glucose 156 H POC Glucose Lactic Acid Calcium Magnesium Ferritin Total Bilirubin 3.40 H Direct Bilirubin 1.7 H AST 385 H ALT 134 H Alkaline Phosphatase Lactate Dehydrogenase C-Reactive Protein Total Protein Albumin 3.0 L Triglycerides Arterial Blood Glucose Arterial Blood Ionized Calcium Urine WBC (Auto) Coronavirus (PCR) SARS-CoV-2 IgG Ab 05/09/20 05/09/20 05/09/20 12:59 12:59 12:59 WBC RBC Hgb Hct MCV MCH MCHC RDW Lymph % (Auto) Lymph # (Auto) Seg Neutrophils % Seg Neuts % (Manual) Lymphocytes % (Manual) Nucleated RBC % Seg Neutrophils # Seg Neutrophils # Man Lymphocytes # (Manual) Monocytes # (Manual) D-Dimer 3242.51 H ABG pH POC ABG pCO2 POC ABG pO2 ABG pO2 ABG HCO3 ABG O2 Saturation ABG Base Excess ABG Hemoglobin ABG Oxyhemoglobin ABG Sodium ABG Potassium ABG Chloride ABG Glucose Oxyhemoglobin Sodium Potassium Chloride Carbon Dioxide BUN Creatinine Glucose 158 H POC Glucose Lactic Acid 3.50 H* Calcium Magnesium Ferritin Total Bilirubin Direct Bilirubin AST ALT Alkaline Phosphatase Lactate Dehydrogenase 2166 H C-Reactive Protein 39.00 H Total Protein Albumin Triglycerides Arterial Blood Glucose Arterial Blood Ionized Calcium Urine WBC (Auto) Coronavirus (PCR) SARS-CoV-2 IgG Ab 05/09/20 05/09/20 05/09/20 12:59 14:20 14:20 WBC RBC Hgb Hct MCV MCH MCHC RDW Lymph % (Auto) Lymph # (Auto) Seg Neutrophils % Seg Neuts % (Manual) Lymphocytes % (Manual) Nucleated RBC % Seg Neutrophils # Seg Neutrophils # Man Lymphocytes # (Manual) Monocytes # (Manual) D-Dimer 2861.78 H ABG pH POC ABG pCO2 POC ABG pO2 ABG pO2 ABG HCO3 ABG O2 Saturation ABG Base Excess ABG Hemoglobin ABG Oxyhemoglobin ABG Sodium ABG Potassium ABG Chloride ABG Glucose Oxyhemoglobin Sodium Potassium Chloride Carbon Dioxide BUN Creatinine Glucose POC Glucose Lactic Acid 2.20 H* Calcium Magnesium Ferritin 37847.0 H Total Bilirubin Direct Bilirubin AST ALT Alkaline Phosphatase Lactate Dehydrogenase C-Reactive Protein Total Protein Albumin Triglycerides Arterial Blood Glucose Arterial Blood Ionized Calcium Urine WBC (Auto) Coronavirus (PCR) SARS-CoV-2 IgG Ab 05/09/20 05/09/20 05/09/20 14:20 14:20 15:56 WBC RBC Hgb Hct MCV MCH MCHC RDW Lymph % (Auto) Lymph # (Auto) Seg Neutrophils % Seg Neuts % (Manual) Lymphocytes % (Manual) Nucleated RBC % Seg Neutrophils # Seg Neutrophils # Man Lymphocytes # (Manual) Monocytes # (Manual) D-Dimer ABG pH POC ABG pCO2 POC ABG pO2 57.3 L ABG pO2 ABG HCO3 ABG O2 Saturation ABG Base Excess ABG Hemoglobin ABG Oxyhemoglobin 86.3 L ABG Sodium 129.9 L ABG Potassium ABG Chloride ABG Glucose 146 H Oxyhemoglobin Sodium Potassium Chloride Carbon Dioxide BUN Creatinine Glucose 143 H POC Glucose Lactic Acid Calcium Magnesium Ferritin 89537.0 H Total Bilirubin Direct Bilirubin AST ALT Alkaline Phosphatase Lactate Dehydrogenase 1953 H C-Reactive Protein 33.50 H Total Protein Albumin Triglycerides Arterial Blood Glucose 146 H Arterial Blood Ionized Calcium 3.9 L Urine WBC (Auto) Coronavirus (PCR) SARS-CoV-2 IgG Ab 05/10/20 05/10/20 05/10/20 10:32 10:32 18:50 WBC 15.4 H RBC Hgb Hct MCV 97 H MCH 33 H MCHC RDW 13.1 L Lymph % (Auto) Lymph # (Auto) Seg Neutrophils % Seg Neuts % (Manual) 89.0 H Lymphocytes % (Manual) 8.0 L Nucleated RBC % Seg Neutrophils # Seg Neutrophils # Man 13.7 H Lymphocytes # (Manual) Monocytes # (Manual) D-Dimer ABG pH POC ABG pCO2 POC ABG pO2 ABG pO2 ABG HCO3 ABG O2 Saturation ABG Base Excess ABG Hemoglobin ABG Oxyhemoglobin ABG Sodium ABG Potassium ABG Chloride ABG Glucose Oxyhemoglobin Sodium 136 L Potassium Chloride 97.4 L Carbon Dioxide BUN 37 H Creatinine 1.7 H Glucose 209 H POC Glucose Lactic Acid Calcium Magnesium Ferritin > 2000.0 H Total Bilirubin Direct Bilirubin AST ALT Alkaline Phosphatase Lactate Dehydrogenase C-Reactive Protein Total Protein Albumin Triglycerides Arterial Blood Glucose Arterial Blood Ionized Calcium Urine WBC (Auto) Coronavirus (PCR) SARS-CoV-2 IgG Ab 05/10/20 05/10/20 05/10/20 18:50 19:00 Unknown WBC RBC Hgb Hct MCV MCH MCHC RDW Lymph % (Auto) Lymph # (Auto) Seg Neutrophils % Seg Neuts % (Manual) Lymphocytes % (Manual) Nucleated RBC % Seg Neutrophils # Seg Neutrophils # Man Lymphocytes # (Manual) Monocytes # (Manual) D-Dimer > 28125 H ABG pH POC ABG pCO2 POC ABG pO2 ABG pO2 ABG HCO3 ABG O2 Saturation ABG Base Excess ABG Hemoglobin ABG Oxyhemoglobin ABG Sodium ABG Potassium ABG Chloride ABG Glucose Oxyhemoglobin Sodium Potassium Chloride Carbon Dioxide BUN Creatinine Glucose POC Glucose Lactic Acid Calcium Magnesium Ferritin Total Bilirubin Direct Bilirubin AST ALT Alkaline Phosphatase Lactate Dehydrogenase 1879 H C-Reactive Protein 24.80 H Total Protein Albumin Triglycerides Arterial Blood Glucose Arterial Blood Ionized Calcium Urine WBC (Auto) 11.0 H Coronavirus (PCR) SARS-CoV-2 IgG Ab 05/10/20 05/11/20 05/11/20 Unknown 07:30 07:30 WBC RBC Hgb Hct MCV MCH MCHC RDW Lymph % (Auto) Lymph # (Auto) Seg Neutrophils % Seg Neuts % (Manual) Lymphocytes % (Manual) Nucleated RBC % Seg Neutrophils # Seg Neutrophils # Man Lymphocytes # (Manual) Monocytes # (Manual) D-Dimer > 2000 H ABG pH POC ABG pCO2 POC ABG pO2 ABG pO2 ABG HCO3 ABG O2 Saturation ABG Base Excess ABG Hemoglobin ABG Oxyhemoglobin ABG Sodium ABG Potassium ABG Chloride ABG Glucose Oxyhemoglobin Sodium Potassium Chloride 96.3 L Carbon Dioxide BUN 36 H Creatinine Glucose 161 H POC Glucose Lactic Acid Calcium 8.3 L Magnesium Ferritin Total Bilirubin 1.50 H Direct Bilirubin 0.6 H AST 178 H ALT 111 H Alkaline Phosphatase Lactate Dehydrogenase C-Reactive Protein Total Protein Albumin 3.0 L Triglycerides Arterial Blood Glucose Arterial Blood Ionized Calcium Urine WBC (Auto) Coronavirus (PCR) Positive A SARS-CoV-2 IgG Ab 05/11/20 05/11/20 05/11/20 07:30 07:30 07:30 WBC RBC Hgb Hct MCV MCH MCHC RDW Lymph % (Auto) Lymph # (Auto) Seg Neutrophils % Seg Neuts % (Manual) Lymphocytes % (Manual) Nucleated RBC % Seg Neutrophils # Seg Neutrophils # Man Lymphocytes # (Manual) Monocytes # (Manual) D-Dimer ABG pH POC ABG pCO2 POC ABG pO2 ABG pO2 ABG HCO3 ABG O2 Saturation ABG Base Excess ABG Hemoglobin ABG Oxyhemoglobin ABG Sodium ABG Potassium ABG Chloride ABG Glucose Oxyhemoglobin Sodium Potassium Chloride Carbon Dioxide BUN Creatinine Glucose POC Glucose Lactic Acid Calcium Magnesium Ferritin 80219.0 H Total Bilirubin Direct Bilirubin AST ALT Alkaline Phosphatase Lactate Dehydrogenase 1523 H C-Reactive Protein 12.90 H Total Protein Albumin Triglycerides Arterial Blood Glucose Arterial Blood Ionized Calcium Urine WBC (Auto) Coronavirus (PCR) SARS-CoV-2 IgG Ab Reactive A 05/13/20 05/13/20 05/15/20 05:20 05:20 08:15 WBC RBC Hgb Hct MCV MCH MCHC RDW Lymph % (Auto) Lymph # (Auto) Seg Neutrophils % Seg Neuts % (Manual) Lymphocytes % (Manual) Nucleated RBC % Seg Neutrophils # Seg Neutrophils # Man Lymphocytes # (Manual) Monocytes # (Manual) D-Dimer > 19406 H 5318.28 H ABG pH POC ABG pCO2 POC ABG pO2 ABG pO2 ABG HCO3 ABG O2 Saturation ABG Base Excess ABG Hemoglobin ABG Oxyhemoglobin ABG Sodium ABG Potassium ABG Chloride ABG Glucose Oxyhemoglobin Sodium Potassium Chloride Carbon Dioxide 32 H BUN 30 H Creatinine Glucose 156 H POC Glucose Lactic Acid Calcium Magnesium 2.60 H Ferritin Total Bilirubin 1.40 H Direct Bilirubin AST 121 H ALT 119 H Alkaline Phosphatase Lactate Dehydrogenase 957 H C-Reactive Protein 4.00 H Total Protein Albumin 3.0 L Triglycerides Arterial Blood Glucose Arterial Blood Ionized Calcium Urine WBC (Auto) Coronavirus (PCR) SARS-CoV-2 IgG Ab 05/15/20 05/15/20 05/15/20 08:15 08:15 08:15 WBC 12.4 H RBC Hgb Hct MCV 98 H MCH 33 H MCHC RDW Lymph % (Auto) 9.7 L Lymph # (Auto) Seg Neutrophils % 86.8 H Seg Neuts % (Manual) Lymphocytes % (Manual) Nucleated RBC % Seg Neutrophils # 10.8 H Seg Neutrophils # Man Lymphocytes # (Manual) Monocytes # (Manual) D-Dimer ABG pH POC ABG pCO2 POC ABG pO2 ABG pO2 ABG HCO3 ABG O2 Saturation ABG Base Excess ABG Hemoglobin ABG Oxyhemoglobin ABG Sodium ABG Potassium ABG Chloride ABG Glucose Oxyhemoglobin Sodium Potassium Chloride 94.8 L Carbon Dioxide 32 H BUN 22 H Creatinine Glucose 115 H POC Glucose Lactic Acid Calcium 8.3 L Magnesium Ferritin 2494.0 H Total Bilirubin Direct Bilirubin AST 73 H ALT 121 H Alkaline Phosphatase Lactate Dehydrogenase 835 H C-Reactive Protein 3.40 H Total Protein 6.1 L Albumin 3.0 L Triglycerides Arterial Blood Glucose Arterial Blood Ionized Calcium Urine WBC (Auto) Coronavirus (PCR) SARS-CoV-2 IgG Ab 05/17/20 05/17/20 05/17/20 05:50 05:50 05:50 WBC RBC Hgb Hct MCV MCH MCHC RDW Lymph % (Auto) Lymph # (Auto) Seg Neutrophils % Seg Neuts % (Manual) Lymphocytes % (Manual) Nucleated RBC % Seg Neutrophils # Seg Neutrophils # Man Lymphocytes # (Manual) Monocytes # (Manual) D-Dimer 2911.42 H ABG pH POC ABG pCO2 POC ABG pO2 ABG pO2 ABG HCO3 ABG O2 Saturation ABG Base Excess ABG Hemoglobin ABG Oxyhemoglobin ABG Sodium ABG Potassium ABG Chloride ABG Glucose Oxyhemoglobin Sodium 136 L Potassium Chloride 96.0 L Carbon Dioxide 34 H BUN 22 H Creatinine Glucose 140 H POC Glucose Lactic Acid Calcium Magnesium Ferritin 2082.0 H Total Bilirubin Direct Bilirubin AST ALT 75 H Alkaline Phosphatase Lactate Dehydrogenase 601 H C-Reactive Protein 2.70 H Total Protein Albumin 2.9 L Triglycerides Arterial Blood Glucose Arterial Blood Ionized Calcium Urine WBC (Auto) Coronavirus (PCR) SARS-CoV-2 IgG Ab 05/17/20 05/18/20 05/20/20 05:50 12:22 08:16 WBC RBC Hgb Hct MCV 98 H MCH 33 H MCHC RDW Lymph % (Auto) 8.0 L Lymph # (Auto) 0.8 L Seg Neutrophils % 89.3 H Seg Neuts % (Manual) Lymphocytes % (Manual) Nucleated RBC % Seg Neutrophils # 8.8 H Seg Neutrophils # Man Lymphocytes # (Manual) Monocytes # (Manual) D-Dimer 1887.82 H ABG pH POC ABG pCO2 POC ABG pO2 ABG pO2 ABG HCO3 ABG O2 Saturation ABG Base Excess ABG Hemoglobin ABG Oxyhemoglobin ABG Sodium ABG Potassium ABG Chloride ABG Glucose Oxyhemoglobin Sodium Potassium Chloride Carbon Dioxide BUN Creatinine Glucose POC Glucose 178 H Lactic Acid Calcium Magnesium Ferritin Total Bilirubin Direct Bilirubin AST ALT Alkaline Phosphatase Lactate Dehydrogenase C-Reactive Protein Total Protein Albumin Triglycerides Arterial Blood Glucose Arterial Blood Ionized Calcium Urine WBC (Auto) Coronavirus (PCR) SARS-CoV-2 IgG Ab 05/20/20 05/20/20 05/21/20 08:16 08:16 21:10 WBC RBC Hgb Hct MCV MCH MCHC RDW Lymph % (Auto) Lymph # (Auto) Seg Neutrophils % Seg Neuts % (Manual) Lymphocytes % (Manual) Nucleated RBC % Seg Neutrophils # Seg Neutrophils # Man Lymphocytes # (Manual) Monocytes # (Manual) D-Dimer ABG pH 7.483 H POC ABG pCO2 POC ABG pO2 ABG pO2 50.0 L ABG HCO3 27.0 H ABG O2 Saturation 86.2 L ABG Base Excess 3.7 H ABG Hemoglobin ABG Oxyhemoglobin ABG Sodium ABG Potassium ABG Chloride ABG Glucose Oxyhemoglobin 84.2 L Sodium Potassium Chloride Carbon Dioxide BUN Creatinine Glucose POC Glucose Lactic Acid Calcium Magnesium Ferritin 1960.0 H Total Bilirubin Direct Bilirubin AST ALT Alkaline Phosphatase Lactate Dehydrogenase 705 H C-Reactive Protein 3.10 H Total Protein Albumin Triglycerides Arterial Blood Glucose Arterial Blood Ionized Calcium Urine WBC (Auto) Coronavirus (PCR) SARS-CoV-2 IgG Ab 05/22/20 05/22/20 05/22/20 04:01 07:53 07:53 WBC 19.2 H RBC Hgb Hct MCV 98 H MCH 34 H MCHC RDW Lymph % (Auto) Lymph # (Auto) Seg Neutrophils % Seg Neuts % (Manual) 96.0 H Lymphocytes % (Manual) 1.0 L Nucleated RBC % Seg Neutrophils # Seg Neutrophils # Man 18.4 H Lymphocytes # (Manual) 0.2 L Monocytes # (Manual) D-Dimer ABG pH POC ABG pCO2 53.8 H POC ABG pO2 125.5 H ABG pO2 ABG HCO3 ABG O2 Saturation ABG Base Excess ABG Hemoglobin ABG Oxyhemoglobin ABG Sodium 131.8 L ABG Potassium 4.8 H ABG Chloride 94.0 L ABG Glucose 163 H Oxyhemoglobin Sodium 131 L Potassium Chloride 93.4 L Carbon Dioxide BUN 40 H Creatinine Glucose 176 H POC Glucose Lactic Acid Calcium Magnesium 2.70 H Ferritin Total Bilirubin 1.80 H Direct Bilirubin AST 45 H ALT 116 H Alkaline Phosphatase 181 H Lactate Dehydrogenase C-Reactive Protein Total Protein Albumin 2.6 L Triglycerides Arterial Blood Glucose 163 H Arterial Blood Ionized Calcium 4.5 L Urine WBC (Auto) Coronavirus (PCR) SARS-CoV-2 IgG Ab 05/23/20 05/24/20 05/24/20 04:17 03:07 04:08 WBC RBC Hgb Hct MCV MCH MCHC RDW Lymph % (Auto) Lymph # (Auto) Seg Neutrophils % Seg Neuts % (Manual) Lymphocytes % (Manual) Nucleated RBC % Seg Neutrophils # Seg Neutrophils # Man Lymphocytes # (Manual) Monocytes # (Manual) D-Dimer ABG pH 7.328 L POC ABG pCO2 POC ABG pO2 ABG pO2 72.8 L 73.4 L ABG HCO3 31.0 H 34.0 H ABG O2 Saturation 93.5 L ABG Base Excess 3.5 H 7.7 H ABG Hemoglobin 13.3 L 12.1 L ABG Oxyhemoglobin ABG Sodium ABG Potassium ABG Chloride ABG Glucose Oxyhemoglobin 91.5 L 94.3 L Sodium Potassium Chloride Carbon Dioxide BUN Creatinine Glucose POC Glucose 155 H Lactic Acid Calcium Magnesium Ferritin Total Bilirubin Direct Bilirubin AST ALT Alkaline Phosphatase Lactate Dehydrogenase C-Reactive Protein Total Protein Albumin Triglycerides Arterial Blood Glucose Arterial Blood Ionized Calcium Urine WBC (Auto) Coronavirus (PCR) SARS-CoV-2 IgG Ab 05/24/20 05/24/20 05/24/20 09:33 12:21 17:52 WBC RBC Hgb Hct MCV MCH MCHC RDW Lymph % (Auto) Lymph # (Auto) Seg Neutrophils % Seg Neuts % (Manual) Lymphocytes % (Manual) Nucleated RBC % Seg Neutrophils # Seg Neutrophils # Man Lymphocytes # (Manual) Monocytes # (Manual) D-Dimer ABG pH POC ABG pCO2 POC ABG pO2 ABG pO2 ABG HCO3 ABG O2 Saturation ABG Base Excess ABG Hemoglobin ABG Oxyhemoglobin ABG Sodium ABG Potassium ABG Chloride ABG Glucose Oxyhemoglobin Sodium Potassium Chloride Carbon Dioxide 34 H D BUN 28 H Creatinine 0.7 L Glucose 168 H POC Glucose 173 H 164 H Lactic Acid Calcium Magnesium Ferritin Total Bilirubin Direct Bilirubin AST ALT Alkaline Phosphatase Lactate Dehydrogenase C-Reactive Protein Total Protein Albumin Triglycerides Arterial Blood Glucose Arterial Blood Ionized Calcium Urine WBC (Auto) Coronavirus (PCR) SARS-CoV-2 IgG Ab 05/24/20 05/25/20 05/25/20 23:47 04:29 05:46 WBC RBC Hgb Hct MCV MCH MCHC RDW Lymph % (Auto) Lymph # (Auto) Seg Neutrophils % Seg Neuts % (Manual) Lymphocytes % (Manual) Nucleated RBC % Seg Neutrophils # Seg Neutrophils # Man Lymphocytes # (Manual) Monocytes # (Manual) D-Dimer ABG pH POC ABG pCO2 68.6 H POC ABG pO2 ABG pO2 ABG HCO3 ABG O2 Saturation ABG Base Excess ABG Hemoglobin ABG Oxyhemoglobin ABG Sodium ABG Potassium 4.7 H ABG Chloride ABG Glucose 226 H Oxyhemoglobin Sodium Potassium Chloride Carbon Dioxide BUN Creatinine Glucose POC Glucose 171 H 201 H Lactic Acid Calcium Magnesium Ferritin Total Bilirubin Direct Bilirubin AST ALT Alkaline Phosphatase Lactate Dehydrogenase C-Reactive Protein Total Protein Albumin Triglycerides Arterial Blood Glucose 226 H Arterial Blood Ionized Calcium Urine WBC (Auto) Coronavirus (PCR) SARS-CoV-2 IgG Ab 05/25/20 05/25/20 05/25/20 08:37 08:37 12:38 WBC 12.0 H RBC 3.64 L Hgb Hct MCV 99 H MCH 33 H MCHC RDW Lymph % (Auto) Lymph # (Auto) Seg Neutrophils % Seg Neuts % (Manual) Lymphocytes % (Manual) Nucleated RBC % Seg Neutrophils # Seg Neutrophils # Man Lymphocytes # (Manual) Monocytes # (Manual) D-Dimer ABG pH POC ABG pCO2 POC ABG pO2 ABG pO2 ABG HCO3 ABG O2 Saturation ABG Base Excess ABG Hemoglobin ABG Oxyhemoglobin ABG Sodium ABG Potassium ABG Chloride ABG Glucose Oxyhemoglobin Sodium Potassium Chloride 97.3 L Carbon Dioxide 35 H BUN 25 H Creatinine 0.7 L Glucose 191 H POC Glucose 182 H Lactic Acid Calcium Magnesium Ferritin Total Bilirubin Direct Bilirubin AST ALT Alkaline Phosphatase Lactate Dehydrogenase C-Reactive Protein Total Protein Albumin Triglycerides Arterial Blood Glucose Arterial Blood Ionized Calcium Urine WBC (Auto) Coronavirus (PCR) SARS-CoV-2 IgG Ab 05/25/20 05/26/20 05/26/20 18:16 00:06 04:50 WBC RBC Hgb Hct MCV MCH MCHC RDW Lymph % (Auto) Lymph # (Auto) Seg Neutrophils % Seg Neuts % (Manual) Lymphocytes % (Manual) Nucleated RBC % Seg Neutrophils # Seg Neutrophils # Man Lymphocytes # (Manual) Monocytes # (Manual) D-Dimer ABG pH POC ABG pCO2 POC ABG pO2 ABG pO2 221.5 H ABG HCO3 40.4 H ABG O2 Saturation 99.3 H ABG Base Excess 12.8 H ABG Hemoglobin 10.4 L ABG Oxyhemoglobin ABG Sodium ABG Potassium ABG Chloride ABG Glucose Oxyhemoglobin Sodium Potassium Chloride Carbon Dioxide BUN Creatinine Glucose POC Glucose 176 H 152 H Lactic Acid Calcium Magnesium Ferritin Total Bilirubin Direct Bilirubin AST ALT Alkaline Phosphatase Lactate Dehydrogenase C-Reactive Protein Total Protein Albumin Triglycerides Arterial Blood Glucose Arterial Blood Ionized Calcium Urine WBC (Auto) Coronavirus (PCR) SARS-CoV-2 IgG Ab 05/26/20 05/26/20 05/26/20 06:11 07:51 07:51 WBC 13.4 H RBC 3.64 L Hgb Hct MCV 98 H MCH 33 H MCHC RDW Lymph % (Auto) Lymph # (Auto) Seg Neutrophils % Seg Neuts % (Manual) Lymphocytes % (Manual) Nucleated RBC % Seg Neutrophils # Seg Neutrophils # Man Lymphocytes # (Manual) Monocytes # (Manual) D-Dimer ABG pH POC ABG pCO2 POC ABG pO2 ABG pO2 ABG HCO3 ABG O2 Saturation ABG Base Excess ABG Hemoglobin ABG Oxyhemoglobin ABG Sodium ABG Potassium ABG Chloride ABG Glucose Oxyhemoglobin Sodium Potassium Chloride 96.6 L Carbon Dioxide 39 H BUN 29 H Creatinine 0.7 L Glucose 174 H POC Glucose 165 H Lactic Acid Calcium Magnesium Ferritin Total Bilirubin Direct Bilirubin AST ALT Alkaline Phosphatase Lactate Dehydrogenase C-Reactive Protein Total Protein Albumin Triglycerides Arterial Blood Glucose Arterial Blood Ionized Calcium Urine WBC (Auto) Coronavirus (PCR) SARS-CoV-2 IgG Ab 05/26/20 05/27/20 05/27/20 23:23 03:43 05:29 WBC RBC Hgb Hct MCV MCH MCHC RDW Lymph % (Auto) Lymph # (Auto) Seg Neutrophils % Seg Neuts % (Manual) Lymphocytes % (Manual) Nucleated RBC % Seg Neutrophils # Seg Neutrophils # Man Lymphocytes # (Manual) Monocytes # (Manual) D-Dimer ABG pH 7.480 H POC ABG pCO2 52.4 H POC ABG pO2 61.4 L ABG pO2 ABG HCO3 ABG O2 Saturation ABG Base Excess ABG Hemoglobin ABG Oxyhemoglobin ABG Sodium 134.9 L ABG Potassium ABG Chloride 95.0 L ABG Glucose 221 H Oxyhemoglobin Sodium Potassium Chloride Carbon Dioxide BUN Creatinine Glucose POC Glucose 169 H 227 H Lactic Acid Calcium Magnesium Ferritin Total Bilirubin Direct Bilirubin AST ALT Alkaline Phosphatase Lactate Dehydrogenase C-Reactive Protein Total Protein Albumin Triglycerides Arterial Blood Glucose 221 H Arterial Blood Ionized Calcium 4.5 L Urine WBC (Auto) Coronavirus (PCR) SARS-CoV-2 IgG Ab 05/27/20 05/27/20 05/27/20 07:19 12:18 13:50 WBC RBC Hgb Hct MCV MCH MCHC RDW Lymph % (Auto) Lymph # (Auto) Seg Neutrophils % Seg Neuts % (Manual) Lymphocytes % (Manual) Nucleated RBC % Seg Neutrophils # Seg Neutrophils # Man Lymphocytes # (Manual) Monocytes # (Manual) D-Dimer ABG pH POC ABG pCO2 POC ABG pO2 ABG pO2 ABG HCO3 ABG O2 Saturation ABG Base Excess ABG Hemoglobin ABG Oxyhemoglobin ABG Sodium ABG Potassium ABG Chloride ABG Glucose Oxyhemoglobin Sodium Potassium Chloride Carbon Dioxide BUN Creatinine Glucose POC Glucose 114 H 148 H Lactic Acid Calcium Magnesium Ferritin Total Bilirubin Direct Bilirubin AST ALT Alkaline Phosphatase Lactate Dehydrogenase C-Reactive Protein Total Protein Albumin Triglycerides 247 H Arterial Blood Glucose Arterial Blood Ionized Calcium Urine WBC (Auto) Coronavirus (PCR) SARS-CoV-2 IgG Ab 05/28/20 05/28/20 05/28/20 00:13 04:16 05:22 WBC RBC Hgb Hct MCV MCH MCHC RDW Lymph % (Auto) Lymph # (Auto) Seg Neutrophils % Seg Neuts % (Manual) Lymphocytes % (Manual) Nucleated RBC % Seg Neutrophils # Seg Neutrophils # Man Lymphocytes # (Manual) Monocytes # (Manual) D-Dimer ABG pH POC ABG pCO2 64.4 H POC ABG pO2 60.5 L ABG pO2 ABG HCO3 ABG O2 Saturation ABG Base Excess ABG Hemoglobin ABG Oxyhemoglobin ABG Sodium ABG Potassium ABG Chloride 95.0 L ABG Glucose 209 H Oxyhemoglobin Sodium Potassium Chloride Carbon Dioxide BUN Creatinine Glucose POC Glucose 155 H 186 H Lactic Acid Calcium Magnesium Ferritin Total Bilirubin Direct Bilirubin AST ALT Alkaline Phosphatase Lactate Dehydrogenase C-Reactive Protein Total Protein Albumin Triglycerides Arterial Blood Glucose 209 H Arterial Blood Ionized Calcium Urine WBC (Auto) Coronavirus (PCR) SARS-CoV-2 IgG Ab 05/28/20 05/28/20 05/29/20 12:45 17:39 00:37 WBC RBC Hgb Hct MCV MCH MCHC RDW Lymph % (Auto) Lymph # (Auto) Seg Neutrophils % Seg Neuts % (Manual) Lymphocytes % (Manual) Nucleated RBC % Seg Neutrophils # Seg Neutrophils # Man Lymphocytes # (Manual) Monocytes # (Manual) D-Dimer ABG pH POC ABG pCO2 POC ABG pO2 ABG pO2 ABG HCO3 ABG O2 Saturation ABG Base Excess ABG Hemoglobin ABG Oxyhemoglobin ABG Sodium ABG Potassium ABG Chloride ABG Glucose Oxyhemoglobin Sodium Potassium Chloride Carbon Dioxide BUN Creatinine Glucose POC Glucose 143 H 164 H 221 H Lactic Acid Calcium Magnesium Ferritin Total Bilirubin Direct Bilirubin AST ALT Alkaline Phosphatase Lactate Dehydrogenase C-Reactive Protein Total Protein Albumin Triglycerides Arterial Blood Glucose Arterial Blood Ionized Calcium Urine WBC (Auto) Coronavirus (PCR) SARS-CoV-2 IgG Ab 05/29/20 05/29/20 05/29/20 04:15 05:33 12:34 WBC RBC Hgb Hct MCV MCH MCHC RDW Lymph % (Auto) Lymph # (Auto) Seg Neutrophils % Seg Neuts % (Manual) Lymphocytes % (Manual) Nucleated RBC % Seg Neutrophils # Seg Neutrophils # Man Lymphocytes # (Manual) Monocytes # (Manual) D-Dimer ABG pH 7.463 H POC ABG pCO2 56.3 H POC ABG pO2 81.2 L ABG pO2 ABG HCO3 ABG O2 Saturation ABG Base Excess ABG Hemoglobin ABG Oxyhemoglobin ABG Sodium ABG Potassium ABG Chloride 96.0 L ABG Glucose 194 H Oxyhemoglobin Sodium Potassium Chloride Carbon Dioxide BUN Creatinine Glucose POC Glucose 133 H 221 H Lactic Acid Calcium Magnesium Ferritin Total Bilirubin Direct Bilirubin AST ALT Alkaline Phosphatase Lactate Dehydrogenase C-Reactive Protein Total Protein Albumin Triglycerides Arterial Blood Glucose 194 H Arterial Blood Ionized Calcium 4.5 L Urine WBC (Auto) Coronavirus (PCR) SARS-CoV-2 IgG Ab 05/29/20 05/30/20 05/30/20 18:07 00:12 05:38 WBC RBC Hgb Hct MCV MCH MCHC RDW Lymph % (Auto) Lymph # (Auto) Seg Neutrophils % Seg Neuts % (Manual) Lymphocytes % (Manual) Nucleated RBC % Seg Neutrophils # Seg Neutrophils # Man Lymphocytes # (Manual) Monocytes # (Manual) D-Dimer ABG pH POC ABG pCO2 POC ABG pO2 ABG pO2 ABG HCO3 ABG O2 Saturation ABG Base Excess ABG Hemoglobin ABG Oxyhemoglobin ABG Sodium ABG Potassium ABG Chloride ABG Glucose Oxyhemoglobin Sodium Potassium Chloride Carbon Dioxide BUN Creatinine Glucose POC Glucose 162 H 190 H 208 H Lactic Acid Calcium Magnesium Ferritin Total Bilirubin Direct Bilirubin AST ALT Alkaline Phosphatase Lactate Dehydrogenase C-Reactive Protein Total Protein Albumin Triglycerides Arterial Blood Glucose Arterial Blood Ionized Calcium Urine WBC (Auto) Coronavirus (PCR) SARS-CoV-2 IgG Ab 05/30/20 05/30/20 05/30/20 09:30 11:35 11:54 WBC 12.4 H RBC 3.48 L Hgb 11.3 L Hct 34.6 L MCV 99 H MCH 33 H MCHC RDW Lymph % (Auto) Lymph # (Auto) Seg Neutrophils % Seg Neuts % (Manual) Lymphocytes % (Manual) Nucleated RBC % Seg Neutrophils # Seg Neutrophils # Man Lymphocytes # (Manual) Monocytes # (Manual) D-Dimer ABG pH 7.455 H POC ABG pCO2 57.5 H POC ABG pO2 81.5 L ABG pO2 ABG HCO3 ABG O2 Saturation ABG Base Excess ABG Hemoglobin ABG Oxyhemoglobin ABG Sodium ABG Potassium ABG Chloride 96.0 L ABG Glucose 204 H Oxyhemoglobin Sodium Potassium Chloride Carbon Dioxide BUN Creatinine Glucose POC Glucose 183 H Lactic Acid Calcium Magnesium Ferritin Total Bilirubin Direct Bilirubin AST ALT Alkaline Phosphatase Lactate Dehydrogenase C-Reactive Protein Total Protein Albumin Triglycerides Arterial Blood Glucose 204 H Arterial Blood Ionized Calcium Urine WBC (Auto) Coronavirus (PCR) SARS-CoV-2 IgG Ab 05/30/20 05/31/20 05/31/20 18:01 00:10 03:22 WBC RBC Hgb Hct MCV MCH MCHC RDW Lymph % (Auto) Lymph # (Auto) Seg Neutrophils % Seg Neuts % (Manual) Lymphocytes % (Manual) Nucleated RBC % Seg Neutrophils # Seg Neutrophils # Man Lymphocytes # (Manual) Monocytes # (Manual) D-Dimer ABG pH POC ABG pCO2 60.4 H POC ABG pO2 71.5 L ABG pO2 ABG HCO3 ABG O2 Saturation ABG Base Excess ABG Hemoglobin ABG Oxyhemoglobin ABG Sodium ABG Potassium ABG Chloride 96.0 L ABG Glucose 169 H Oxyhemoglobin Sodium Potassium Chloride Carbon Dioxide BUN Creatinine Glucose POC Glucose 184 H 135 H Lactic Acid Calcium Magnesium Ferritin Total Bilirubin Direct Bilirubin AST ALT Alkaline Phosphatase Lactate Dehydrogenase C-Reactive Protein Total Protein Albumin Triglycerides Arterial Blood Glucose 169 H Arterial Blood Ionized Calcium 4.5 L Urine WBC (Auto) Coronavirus (PCR) SARS-CoV-2 IgG Ab 05/31/20 05/31/20 05/31/20 05:24 11:18 14:41 WBC RBC Hgb Hct MCV MCH MCHC RDW Lymph % (Auto) Lymph # (Auto) Seg Neutrophils % Seg Neuts % (Manual) Lymphocytes % (Manual) Nucleated RBC % Seg Neutrophils # Seg Neutrophils # Man Lymphocytes # (Manual) Monocytes # (Manual) D-Dimer ABG pH POC ABG pCO2 POC ABG pO2 ABG pO2 ABG HCO3 ABG O2 Saturation ABG Base Excess ABG Hemoglobin ABG Oxyhemoglobin ABG Sodium ABG Potassium ABG Chloride ABG Glucose Oxyhemoglobin Sodium Potassium Chloride 96.8 L Carbon Dioxide 37 H BUN 31 H Creatinine 0.6 L Glucose 213 H POC Glucose 164 H 208 H Lactic Acid Calcium Magnesium Ferritin Total Bilirubin Direct Bilirubin AST ALT Alkaline Phosphatase Lactate Dehydrogenase C-Reactive Protein Total Protein Albumin Triglycerides Arterial Blood Glucose Arterial Blood Ionized Calcium Urine WBC (Auto) Coronavirus (PCR) SARS-CoV-2 IgG Ab 05/31/20 05/31/20 06/01/20 17:37 23:47 03:48 WBC RBC Hgb Hct MCV MCH MCHC RDW Lymph % (Auto) Lymph # (Auto) Seg Neutrophils % Seg Neuts % (Manual) Lymphocytes % (Manual) Nucleated RBC % Seg Neutrophils # Seg Neutrophils # Man Lymphocytes # (Manual) Monocytes # (Manual) D-Dimer ABG pH POC ABG pCO2 59.7 H POC ABG pO2 73.9 L ABG pO2 ABG HCO3 ABG O2 Saturation ABG Base Excess ABG Hemoglobin ABG Oxyhemoglobin ABG Sodium ABG Potassium ABG Chloride 95.0 L ABG Glucose 256 H Oxyhemoglobin Sodium Potassium Chloride Carbon Dioxide BUN Creatinine Glucose POC Glucose 168 H 178 H Lactic Acid Calcium Magnesium Ferritin Total Bilirubin Direct Bilirubin AST ALT Alkaline Phosphatase Lactate Dehydrogenase C-Reactive Protein Total Protein Albumin Triglycerides Arterial Blood Glucose 256 H Arterial Blood Ionized Calcium Urine WBC (Auto) Coronavirus (PCR) SARS-CoV-2 IgG Ab 06/01/20 06/01/20 06/01/20 05:01 07:47 07:47 WBC 14.4 H RBC 3.46 L Hgb 11.1 L Hct 34.3 L MCV 99 H MCH MCHC RDW Lymph % (Auto) Lymph # (Auto) Seg Neutrophils % Seg Neuts % (Manual) 86.0 H Lymphocytes % (Manual) 9.0 L Nucleated RBC % Seg Neutrophils # Seg Neutrophils # Man 12.4 H Lymphocytes # (Manual) Monocytes # (Manual) D-Dimer ABG pH POC ABG pCO2 POC ABG pO2 ABG pO2 ABG HCO3 ABG O2 Saturation ABG Base Excess ABG Hemoglobin ABG Oxyhemoglobin ABG Sodium ABG Potassium ABG Chloride ABG Glucose Oxyhemoglobin Sodium Potassium Chloride Carbon Dioxide BUN Creatinine Glucose POC Glucose 197 H Lactic Acid Calcium Magnesium Ferritin Total Bilirubin Direct Bilirubin AST ALT Alkaline Phosphatase Lactate Dehydrogenase C-Reactive Protein Total Protein Albumin Triglycerides 244 H Arterial Blood Glucose Arterial Blood Ionized Calcium Urine WBC (Auto) Coronavirus (PCR) SARS-CoV-2 IgG Ab 06/01/20 06/01/20 06/01/20 07:47 11:46 18:15 WBC RBC Hgb Hct MCV MCH MCHC RDW Lymph % (Auto) Lymph # (Auto) Seg Neutrophils % Seg Neuts % (Manual) Lymphocytes % (Manual) Nucleated RBC % Seg Neutrophils # Seg Neutrophils # Man Lymphocytes # (Manual) Monocytes # (Manual) D-Dimer ABG pH POC ABG pCO2 POC ABG pO2 ABG pO2 ABG HCO3 ABG O2 Saturation ABG Base Excess ABG Hemoglobin ABG Oxyhemoglobin ABG Sodium ABG Potassium ABG Chloride ABG Glucose Oxyhemoglobin Sodium Potassium Chloride 95.4 L Carbon Dioxide 35 H BUN 30 H Creatinine 0.5 L Glucose 214 H POC Glucose 181 H 221 H Lactic Acid Calcium Magnesium Ferritin Total Bilirubin Direct Bilirubin AST 54 H ALT 235 H Alkaline Phosphatase Lactate Dehydrogenase C-Reactive Protein Total Protein Albumin 2.9 L Triglycerides Arterial Blood Glucose Arterial Blood Ionized Calcium Urine WBC (Auto) Coronavirus (PCR) SARS-CoV-2 IgG Ab 06/01/20 06/02/20 06/02/20 23:12 04:00 05:31 WBC RBC Hgb Hct MCV MCH MCHC RDW Lymph % (Auto) Lymph # (Auto) Seg Neutrophils % Seg Neuts % (Manual) Lymphocytes % (Manual) Nucleated RBC % Seg Neutrophils # Seg Neutrophils # Man Lymphocytes # (Manual) Monocytes # (Manual) D-Dimer ABG pH 7.465 H POC ABG pCO2 POC ABG pO2 ABG pO2 203.4 H ABG HCO3 41.2 H ABG O2 Saturation 99.3 H ABG Base Excess 15.1 H ABG Hemoglobin 11.5 L ABG Oxyhemoglobin ABG Sodium ABG Potassium ABG Chloride ABG Glucose Oxyhemoglobin Sodium Potassium Chloride Carbon Dioxide BUN Creatinine Glucose POC Glucose 197 H 184 H Lactic Acid Calcium Magnesium Ferritin Total Bilirubin Direct Bilirubin AST ALT Alkaline Phosphatase Lactate Dehydrogenase C-Reactive Protein Total Protein Albumin Triglycerides Arterial Blood Glucose Arterial Blood Ionized Calcium Urine WBC (Auto) Coronavirus (PCR) SARS-CoV-2 IgG Ab 06/02/20 06/02/20 06/02/20 11:49 18:06 23:00 WBC RBC Hgb Hct MCV MCH MCHC RDW Lymph % (Auto) Lymph # (Auto) Seg Neutrophils % Seg Neuts % (Manual) Lymphocytes % (Manual) Nucleated RBC % Seg Neutrophils # Seg Neutrophils # Man Lymphocytes # (Manual) Monocytes # (Manual) D-Dimer ABG pH POC ABG pCO2 POC ABG pO2 ABG pO2 ABG HCO3 ABG O2 Saturation ABG Base Excess ABG Hemoglobin ABG Oxyhemoglobin ABG Sodium ABG Potassium ABG Chloride ABG Glucose Oxyhemoglobin Sodium Potassium Chloride Carbon Dioxide BUN Creatinine Glucose POC Glucose 195 H 177 H 228 H Lactic Acid Calcium Magnesium Ferritin Total Bilirubin Direct Bilirubin AST ALT Alkaline Phosphatase Lactate Dehydrogenase C-Reactive Protein Total Protein Albumin Triglycerides Arterial Blood Glucose Arterial Blood Ionized Calcium Urine WBC (Auto) Coronavirus (PCR) SARS-CoV-2 IgG Ab 06/03/20 06/03/20 06/03/20 03:58 05:19 12:21 WBC RBC Hgb Hct MCV MCH MCHC RDW Lymph % (Auto) Lymph # (Auto) Seg Neutrophils % Seg Neuts % (Manual) Lymphocytes % (Manual) Nucleated RBC % Seg Neutrophils # Seg Neutrophils # Man Lymphocytes # (Manual) Monocytes # (Manual) D-Dimer ABG pH POC ABG pCO2 POC ABG pO2 ABG pO2 171.0 H ABG HCO3 42.8 H ABG O2 Saturation ABG Base Excess 15.6 H ABG Hemoglobin 12.3 L ABG Oxyhemoglobin ABG Sodium ABG Potassium ABG Chloride ABG Glucose Oxyhemoglobin Sodium Potassium Chloride Carbon Dioxide BUN Creatinine Glucose POC Glucose 122 H 207 H Lactic Acid Calcium Magnesium Ferritin Total Bilirubin Direct Bilirubin AST ALT Alkaline Phosphatase Lactate Dehydrogenase C-Reactive Protein Total Protein Albumin Triglycerides Arterial Blood Glucose Arterial Blood Ionized Calcium Urine WBC (Auto) Coronavirus (PCR) SARS-CoV-2 IgG Ab 06/03/20 06/03/20 06/04/20 17:27 23:50 03:55 WBC RBC Hgb Hct MCV MCH MCHC RDW Lymph % (Auto) Lymph # (Auto) Seg Neutrophils % Seg Neuts % (Manual) Lymphocytes % (Manual) Nucleated RBC % Seg Neutrophils # Seg Neutrophils # Man Lymphocytes # (Manual) Monocytes # (Manual) D-Dimer ABG pH POC ABG pCO2 POC ABG pO2 ABG pO2 117.2 H ABG HCO3 42.4 H ABG O2 Saturation ABG Base Excess 15.3 H ABG Hemoglobin 10.5 L ABG Oxyhemoglobin ABG Sodium ABG Potassium ABG Chloride ABG Glucose Oxyhemoglobin Sodium Potassium Chloride Carbon Dioxide BUN Creatinine Glucose POC Glucose 157 H 214 H Lactic Acid Calcium Magnesium Ferritin Total Bilirubin Direct Bilirubin AST ALT Alkaline Phosphatase Lactate Dehydrogenase C-Reactive Protein Total Protein Albumin Triglycerides Arterial Blood Glucose Arterial Blood Ionized Calcium Urine WBC (Auto) Coronavirus (PCR) SARS-CoV-2 IgG Ab 06/04/20 06/04/20 06/04/20 05:49 11:41 17:30 WBC RBC Hgb Hct MCV MCH MCHC RDW Lymph % (Auto) Lymph # (Auto) Seg Neutrophils % Seg Neuts % (Manual) Lymphocytes % (Manual) Nucleated RBC % Seg Neutrophils # Seg Neutrophils # Man Lymphocytes # (Manual) Monocytes # (Manual) D-Dimer ABG pH POC ABG pCO2 POC ABG pO2 ABG pO2 ABG HCO3 ABG O2 Saturation ABG Base Excess ABG Hemoglobin ABG Oxyhemoglobin ABG Sodium ABG Potassium ABG Chloride ABG Glucose Oxyhemoglobin Sodium Potassium Chloride Carbon Dioxide BUN Creatinine Glucose POC Glucose 149 H 233 H 156 H Lactic Acid Calcium Magnesium Ferritin Total Bilirubin Direct Bilirubin AST ALT Alkaline Phosphatase Lactate Dehydrogenase C-Reactive Protein Total Protein Albumin Triglycerides Arterial Blood Glucose Arterial Blood Ionized Calcium Urine WBC (Auto) Coronavirus (PCR) SARS-CoV-2 IgG Ab 06/04/20 06/04/20 06/04/20 19:01 20:53 23:41 WBC RBC 3.18 L Hgb 10.8 L Hct 31.8 L MCV 100 H MCH 34 H MCHC RDW Lymph % (Auto) Lymph # (Auto) Seg Neutrophils % Seg Neuts % (Manual) 86.0 H Lymphocytes % (Manual) 10.0 L Nucleated RBC % 1.0 H Seg Neutrophils # Seg Neutrophils # Man 8.5 H Lymphocytes # (Manual) 1.0 L Monocytes # (Manual) D-Dimer ABG pH POC ABG pCO2 POC ABG pO2 ABG pO2 ABG HCO3 ABG O2 Saturation ABG Base Excess ABG Hemoglobin ABG Oxyhemoglobin ABG Sodium ABG Potassium ABG Chloride ABG Glucose Oxyhemoglobin Sodium Potassium 3.4 L D Chloride 96.5 L Carbon Dioxide 41 H* BUN 27 H Creatinine 0.5 L Glucose 173 H POC Glucose 217 H Lactic Acid Calcium Magnesium Ferritin Total Bilirubin Direct Bilirubin AST ALT Alkaline Phosphatase Lactate Dehydrogenase C-Reactive Protein Total Protein Albumin Triglycerides Arterial Blood Glucose Arterial Blood Ionized Calcium Urine WBC (Auto) Coronavirus (PCR) SARS-CoV-2 IgG Ab 06/05/20 06/05/20 06/05/20 06:05 11:54 12:35 WBC RBC Hgb Hct MCV MCH MCHC RDW Lymph % (Auto) Lymph # (Auto) Seg Neutrophils % Seg Neuts % (Manual) Lymphocytes % (Manual) Nucleated RBC % Seg Neutrophils # Seg Neutrophils # Man Lymphocytes # (Manual) Monocytes # (Manual) D-Dimer ABG pH POC ABG pCO2 POC ABG pO2 ABG pO2 127.9 H ABG HCO3 41.1 H ABG O2 Saturation ABG Base Excess 13.0 H ABG Hemoglobin 13.4 L ABG Oxyhemoglobin ABG Sodium ABG Potassium ABG Chloride ABG Glucose Oxyhemoglobin Sodium Potassium Chloride Carbon Dioxide BUN Creatinine Glucose POC Glucose 137 H 211 H Lactic Acid Calcium Magnesium Ferritin Total Bilirubin Direct Bilirubin AST ALT Alkaline Phosphatase Lactate Dehydrogenase C-Reactive Protein Total Protein Albumin Triglycerides Arterial Blood Glucose Arterial Blood Ionized Calcium Urine WBC (Auto) Coronavirus (PCR) SARS-CoV-2 IgG Ab 06/05/20 06/05/20 06/06/20 17:03 23:49 04:42 WBC RBC Hgb Hct MCV MCH MCHC RDW Lymph % (Auto) Lymph # (Auto) Seg Neutrophils % Seg Neuts % (Manual) Lymphocytes % (Manual) Nucleated RBC % Seg Neutrophils # Seg Neutrophils # Man Lymphocytes # (Manual) Monocytes # (Manual) D-Dimer ABG pH POC ABG pCO2 56.1 H POC ABG pO2 52.5 L ABG pO2 ABG HCO3 ABG O2 Saturation ABG Base Excess ABG Hemoglobin 11.7 L ABG Oxyhemoglobin ABG Sodium ABG Potassium 3.3 L ABG Chloride 95.0 L ABG Glucose 156 H Oxyhemoglobin Sodium Potassium Chloride Carbon Dioxide BUN Creatinine Glucose POC Glucose 159 H 194 H Lactic Acid Calcium Magnesium Ferritin Total Bilirubin Direct Bilirubin AST ALT Alkaline Phosphatase Lactate Dehydrogenase C-Reactive Protein Total Protein Albumin Triglycerides Arterial Blood Glucose 156 H Arterial Blood Ionized Calcium Urine WBC (Auto) Coronavirus (PCR) SARS-CoV-2 IgG Ab 06/06/20 06/06/20 06/06/20 05:57 12:06 17:38 WBC RBC Hgb Hct MCV MCH MCHC RDW Lymph % (Auto) Lymph # (Auto) Seg Neutrophils % Seg Neuts % (Manual) Lymphocytes % (Manual) Nucleated RBC % Seg Neutrophils # Seg Neutrophils # Man Lymphocytes # (Manual) Monocytes # (Manual) D-Dimer ABG pH POC ABG pCO2 POC ABG pO2 ABG pO2 ABG HCO3 ABG O2 Saturation ABG Base Excess ABG Hemoglobin ABG Oxyhemoglobin ABG Sodium ABG Potassium ABG Chloride ABG Glucose Oxyhemoglobin Sodium Potassium Chloride Carbon Dioxide BUN Creatinine Glucose POC Glucose 144 H 230 H 162 H Lactic Acid Calcium Magnesium Ferritin Total Bilirubin Direct Bilirubin AST ALT Alkaline Phosphatase Lactate Dehydrogenase C-Reactive Protein Total Protein Albumin Triglycerides Arterial Blood Glucose Arterial Blood Ionized Calcium Urine WBC (Auto) Coronavirus (PCR) SARS-CoV-2 IgG Ab 06/06/20 06/07/20 06/07/20 23:50 04:34 06:03 WBC RBC Hgb Hct MCV MCH MCHC RDW Lymph % (Auto) Lymph # (Auto) Seg Neutrophils % Seg Neuts % (Manual) Lymphocytes % (Manual) Nucleated RBC % Seg Neutrophils # Seg Neutrophils # Man Lymphocytes # (Manual) Monocytes # (Manual) D-Dimer ABG pH 7.511 H POC ABG pCO2 53.5 H POC ABG pO2 114.5 H ABG pO2 ABG HCO3 ABG O2 Saturation ABG Base Excess ABG Hemoglobin 9.4 L ABG Oxyhemoglobin ABG Sodium 134.5 L ABG Potassium ABG Chloride 94.0 L ABG Glucose 186 H Oxyhemoglobin Sodium Potassium Chloride Carbon Dioxide BUN Creatinine Glucose POC Glucose 181 H 155 H Lactic Acid Calcium Magnesium Ferritin Total Bilirubin Direct Bilirubin AST ALT Alkaline Phosphatase Lactate Dehydrogenase C-Reactive Protein Total Protein Albumin Triglycerides Arterial Blood Glucose 186 H Arterial Blood Ionized Calcium 4.5 L Urine WBC (Auto) Coronavirus (PCR) SARS-CoV-2 IgG Ab 06/07/20 06/07/20 06/07/20 13:41 14:58 14:58 WBC RBC 2.72 L Hgb 9.3 L Hct 27.2 L MCV 100 H MCH 34 H MCHC RDW Lymph % (Auto) Lymph # (Auto) Seg Neutrophils % Seg Neuts % (Manual) Lymphocytes % (Manual) Nucleated RBC % Seg Neutrophils # Seg Neutrophils # Man Lymphocytes # (Manual) Monocytes # (Manual) D-Dimer ABG pH POC ABG pCO2 POC ABG pO2 ABG pO2 ABG HCO3 ABG O2 Saturation ABG Base Excess ABG Hemoglobin ABG Oxyhemoglobin ABG Sodium ABG Potassium ABG Chloride ABG Glucose Oxyhemoglobin Sodium Potassium Chloride 93.5 L Carbon Dioxide 39 H BUN 22 H Creatinine 0.4 L Glucose 188 H POC Glucose 201 H Lactic Acid Calcium Magnesium Ferritin Total Bilirubin Direct Bilirubin AST 61 H ALT 273 H Alkaline Phosphatase Lactate Dehydrogenase C-Reactive Protein Total Protein 5.9 L Albumin 2.7 L Triglycerides Arterial Blood Glucose Arterial Blood Ionized Calcium Urine WBC (Auto) Coronavirus (PCR) SARS-CoV-2 IgG Ab 06/07/20 06/08/20 06/08/20 23:18 05:31 12:07 WBC RBC Hgb Hct MCV MCH MCHC RDW Lymph % (Auto) Lymph # (Auto) Seg Neutrophils % Seg Neuts % (Manual) Lymphocytes % (Manual) Nucleated RBC % Seg Neutrophils # Seg Neutrophils # Man Lymphocytes # (Manual) Monocytes # (Manual) D-Dimer ABG pH POC ABG pCO2 POC ABG pO2 ABG pO2 ABG HCO3 ABG O2 Saturation ABG Base Excess ABG Hemoglobin ABG Oxyhemoglobin ABG Sodium ABG Potassium ABG Chloride ABG Glucose Oxyhemoglobin Sodium Potassium Chloride Carbon Dioxide BUN Creatinine Glucose POC Glucose 214 H 129 H 179 H Lactic Acid Calcium Magnesium Ferritin Total Bilirubin Direct Bilirubin AST ALT Alkaline Phosphatase Lactate Dehydrogenase C-Reactive Protein Total Protein Albumin Triglycerides Arterial Blood Glucose Arterial Blood Ionized Calcium Urine WBC (Auto) Coronavirus (PCR) SARS-CoV-2 IgG Ab 06/08/20 06/08/20 06/09/20 18:18 23:35 05:42 WBC RBC Hgb Hct MCV MCH MCHC RDW Lymph % (Auto) Lymph # (Auto) Seg Neutrophils % Seg Neuts % (Manual) Lymphocytes % (Manual) Nucleated RBC % Seg Neutrophils # Seg Neutrophils # Man Lymphocytes # (Manual) Monocytes # (Manual) D-Dimer ABG pH POC ABG pCO2 POC ABG pO2 ABG pO2 ABG HCO3 ABG O2 Saturation ABG Base Excess ABG Hemoglobin ABG Oxyhemoglobin ABG Sodium ABG Potassium ABG Chloride ABG Glucose Oxyhemoglobin Sodium Potassium Chloride Carbon Dioxide BUN Creatinine Glucose POC Glucose 172 H 177 H 137 H Lactic Acid Calcium Magnesium Ferritin Total Bilirubin Direct Bilirubin AST ALT Alkaline Phosphatase Lactate Dehydrogenase C-Reactive Protein Total Protein Albumin Triglycerides Arterial Blood Glucose Arterial Blood Ionized Calcium Urine WBC (Auto) Coronavirus (PCR) SARS-CoV-2 IgG Ab 06/09/20 06/09/20 06/09/20 06:20 07:55 07:55 WBC 12.4 H RBC 3.26 L Hgb 11.1 L Hct 33.4 L D MCV 102 H MCH 34 H MCHC RDW Lymph % (Auto) Lymph # (Auto) Seg Neutrophils % Seg Neuts % (Manual) Lymphocytes % (Manual) Nucleated RBC % Seg Neutrophils # Seg Neutrophils # Man Lymphocytes # (Manual) Monocytes # (Manual) D-Dimer ABG pH 7.466 H POC ABG pCO2 50.7 H POC ABG pO2 53.0 L ABG pO2 ABG HCO3 ABG O2 Saturation ABG Base Excess ABG Hemoglobin ABG Oxyhemoglobin ABG Sodium ABG Potassium 2.9 L ABG Chloride 93.0 L ABG Glucose 138 H Oxyhemoglobin Sodium Potassium 3.0 L Chloride 92.3 L Carbon Dioxide 37 H BUN 21 H Creatinine 0.6 L Glucose 120 H POC Glucose Lactic Acid Calcium Magnesium Ferritin Total Bilirubin Direct Bilirubin AST ALT Alkaline Phosphatase Lactate Dehydrogenase C-Reactive Protein Total Protein Albumin Triglycerides Arterial Blood Glucose 138 H Arterial Blood Ionized Calcium 4.5 L Urine WBC (Auto) Coronavirus (PCR) SARS-CoV-2 IgG Ab 06/09/20 06/09/20 06/10/20 11:22 18:32 04:46 WBC RBC Hgb Hct MCV MCH MCHC RDW Lymph % (Auto) Lymph # (Auto) Seg Neutrophils % Seg Neuts % (Manual) Lymphocytes % (Manual) Nucleated RBC % Seg Neutrophils # Seg Neutrophils # Man Lymphocytes # (Manual) Monocytes # (Manual) D-Dimer ABG pH 7.501 H POC ABG pCO2 POC ABG pO2 126.5 H ABG pO2 ABG HCO3 ABG O2 Saturation ABG Base Excess ABG Hemoglobin 10.3 L ABG Oxyhemoglobin ABG Sodium ABG Potassium ABG Chloride ABG Glucose 220 H Oxyhemoglobin Sodium Potassium Chloride Carbon Dioxide BUN Creatinine Glucose POC Glucose 117 H 121 H Lactic Acid Calcium Magnesium Ferritin Total Bilirubin Direct Bilirubin AST ALT Alkaline Phosphatase Lactate Dehydrogenase C-Reactive Protein Total Protein Albumin Triglycerides Arterial Blood Glucose 220 H Arterial Blood Ionized Calcium Urine WBC (Auto) Coronavirus (PCR) SARS-CoV-2 IgG Ab 06/10/20 06/10/20 06/10/20 05:30 09:38 12:03 WBC RBC Hgb Hct MCV MCH MCHC RDW Lymph % (Auto) Lymph # (Auto) Seg Neutrophils % Seg Neuts % (Manual) Lymphocytes % (Manual) Nucleated RBC % Seg Neutrophils # Seg Neutrophils # Man Lymphocytes # (Manual) Monocytes # (Manual) D-Dimer ABG pH POC ABG pCO2 POC ABG pO2 ABG pO2 ABG HCO3 ABG O2 Saturation ABG Base Excess ABG Hemoglobin ABG Oxyhemoglobin ABG Sodium ABG Potassium ABG Chloride ABG Glucose Oxyhemoglobin Sodium Potassium Chloride Carbon Dioxide BUN Creatinine Glucose POC Glucose 181 H 204 H Lactic Acid Calcium Magnesium Ferritin Total Bilirubin Direct Bilirubin AST ALT Alkaline Phosphatase Lactate Dehydrogenase C-Reactive Protein Total Protein Albumin Triglycerides 738 H Arterial Blood Glucose Arterial Blood Ionized Calcium Urine WBC (Auto) Coronavirus (PCR) SARS-CoV-2 IgG Ab 06/10/20 06/11/20 06/11/20 17:17 00:04 04:38 WBC RBC Hgb Hct MCV MCH MCHC RDW Lymph % (Auto) Lymph # (Auto) Seg Neutrophils % Seg Neuts % (Manual) Lymphocytes % (Manual) Nucleated RBC % Seg Neutrophils # Seg Neutrophils # Man Lymphocytes # (Manual) Monocytes # (Manual) D-Dimer ABG pH 7.479 H POC ABG pCO2 POC ABG pO2 76.7 L ABG pO2 ABG HCO3 ABG O2 Saturation ABG Base Excess ABG Hemoglobin 9.8 L ABG Oxyhemoglobin ABG Sodium 135.8 L ABG Potassium ABG Chloride ABG Glucose 238 H Oxyhemoglobin Sodium Potassium Chloride Carbon Dioxide BUN Creatinine Glucose POC Glucose 156 H 178 H Lactic Acid Calcium Magnesium Ferritin Total Bilirubin Direct Bilirubin AST ALT Alkaline Phosphatase Lactate Dehydrogenase C-Reactive Protein Total Protein Albumin Triglycerides Arterial Blood Glucose 238 H Arterial Blood Ionized Calcium Urine WBC (Auto) Coronavirus (PCR) SARS-CoV-2 IgG Ab 06/11/20 06/11/20 06/11/20 05:21 06:52 11:50 WBC RBC Hgb Hct MCV MCH MCHC RDW Lymph % (Auto) Lymph # (Auto) Seg Neutrophils % Seg Neuts % (Manual) Lymphocytes % (Manual) Nucleated RBC % Seg Neutrophils # Seg Neutrophils # Man Lymphocytes # (Manual) Monocytes # (Manual) D-Dimer ABG pH POC ABG pCO2 POC ABG pO2 ABG pO2 ABG HCO3 ABG O2 Saturation ABG Base Excess ABG Hemoglobin ABG Oxyhemoglobin ABG Sodium ABG Potassium ABG Chloride ABG Glucose Oxyhemoglobin Sodium Potassium Chloride Carbon Dioxide BUN Creatinine Glucose POC Glucose 215 H 187 H Lactic Acid Calcium Magnesium Ferritin Total Bilirubin Direct Bilirubin AST ALT Alkaline Phosphatase Lactate Dehydrogenase C-Reactive Protein Total Protein Albumin Triglycerides 331 H Arterial Blood Glucose Arterial Blood Ionized Calcium Urine WBC (Auto) Coronavirus (PCR) SARS-CoV-2 IgG Ab 06/11/20 06/11/20 06/12/20 17:49 23:35 04:52 WBC RBC Hgb Hct MCV MCH MCHC RDW Lymph % (Auto) Lymph # (Auto) Seg Neutrophils % Seg Neuts % (Manual) Lymphocytes % (Manual) Nucleated RBC % Seg Neutrophils # Seg Neutrophils # Man Lymphocytes # (Manual) Monocytes # (Manual) D-Dimer ABG pH 7.486 H POC ABG pCO2 POC ABG pO2 ABG pO2 ABG HCO3 ABG O2 Saturation ABG Base Excess ABG Hemoglobin 9.4 L ABG Oxyhemoglobin ABG Sodium ABG Potassium 3.2 L ABG Chloride ABG Glucose 209 H Oxyhemoglobin Sodium Potassium Chloride Carbon Dioxide BUN Creatinine Glucose POC Glucose 211 H 200 H Lactic Acid Calcium Magnesium Ferritin Total Bilirubin Direct Bilirubin AST ALT Alkaline Phosphatase Lactate Dehydrogenase C-Reactive Protein Total Protein Albumin Triglycerides Arterial Blood Glucose 209 H Arterial Blood Ionized Calcium Urine WBC (Auto) Coronavirus (PCR) SARS-CoV-2 IgG Ab 06/12/20 06/12/20 06/12/20 05:13 11:47 18:33 WBC RBC Hgb Hct MCV MCH MCHC RDW Lymph % (Auto) Lymph # (Auto) Seg Neutrophils % Seg Neuts % (Manual) Lymphocytes % (Manual) Nucleated RBC % Seg Neutrophils # Seg Neutrophils # Man Lymphocytes # (Manual) Monocytes # (Manual) D-Dimer ABG pH POC ABG pCO2 POC ABG pO2 ABG pO2 ABG HCO3 ABG O2 Saturation ABG Base Excess ABG Hemoglobin ABG Oxyhemoglobin ABG Sodium ABG Potassium ABG Chloride ABG Glucose Oxyhemoglobin Sodium Potassium Chloride Carbon Dioxide BUN Creatinine Glucose POC Glucose 174 H 214 H 194 H Lactic Acid Calcium Magnesium Ferritin Total Bilirubin Direct Bilirubin AST ALT Alkaline Phosphatase Lactate Dehydrogenase C-Reactive Protein Total Protein Albumin Triglycerides Arterial Blood Glucose Arterial Blood Ionized Calcium Urine WBC (Auto) Coronavirus (PCR) SARS-CoV-2 IgG Ab 06/12/20 06/13/20 06/13/20 23:49 05:41 12:30 WBC RBC Hgb Hct MCV MCH MCHC RDW Lymph % (Auto) Lymph # (Auto) Seg Neutrophils % Seg Neuts % (Manual) Lymphocytes % (Manual) Nucleated RBC % Seg Neutrophils # Seg Neutrophils # Man Lymphocytes # (Manual) Monocytes # (Manual) D-Dimer ABG pH POC ABG pCO2 POC ABG pO2 ABG pO2 ABG HCO3 ABG O2 Saturation ABG Base Excess ABG Hemoglobin ABG Oxyhemoglobin ABG Sodium ABG Potassium ABG Chloride ABG Glucose Oxyhemoglobin Sodium Potassium Chloride Carbon Dioxide BUN Creatinine Glucose POC Glucose 160 H 150 H 181 H Lactic Acid Calcium Magnesium Ferritin Total Bilirubin Direct Bilirubin AST ALT Alkaline Phosphatase Lactate Dehydrogenase C-Reactive Protein Total Protein Albumin Triglycerides Arterial Blood Glucose Arterial Blood Ionized Calcium Urine WBC (Auto) Coronavirus (PCR) SARS-CoV-2 IgG Ab 06/13/20 06/13/20 06/13/20 14:14 17:48 23:27 WBC 12.8 H RBC 2.33 L Hgb 8.0 L Hct 23.3 L MCV 100 H MCH 34 H MCHC RDW 15.7 H Lymph % (Auto) Lymph # (Auto) Seg Neutrophils % Seg Neuts % (Manual) 85.0 H Lymphocytes % (Manual) 10.0 L Nucleated RBC % Seg Neutrophils # Seg Neutrophils # Man 10.9 H Lymphocytes # (Manual) Monocytes # (Manual) D-Dimer ABG pH POC ABG pCO2 POC ABG pO2 ABG pO2 ABG HCO3 ABG O2 Saturation ABG Base Excess ABG Hemoglobin ABG Oxyhemoglobin ABG Sodium ABG Potassium ABG Chloride ABG Glucose Oxyhemoglobin Sodium Potassium Chloride Carbon Dioxide BUN Creatinine Glucose POC Glucose 173 H 154 H Lactic Acid Calcium Magnesium Ferritin Total Bilirubin Direct Bilirubin AST ALT Alkaline Phosphatase Lactate Dehydrogenase C-Reactive Protein Total Protein Albumin Triglycerides Arterial Blood Glucose Arterial Blood Ionized Calcium Urine WBC (Auto) Coronavirus (PCR) SARS-CoV-2 IgG Ab 06/14/20 06/14/20 06/14/20 03:58 05:21 07:15 WBC 26.2 H RBC 2.97 L Hgb 9.7 L Hct 29.9 L D MCV 101 H MCH 33 H MCHC RDW 15.3 H Lymph % (Auto) Lymph # (Auto) Seg Neutrophils % Seg Neuts % (Manual) 79.0 H Lymphocytes % (Manual) 5.0 L Nucleated RBC % 3.0 H Seg Neutrophils # Seg Neutrophils # Man 20.7 H Lymphocytes # (Manual) Monocytes # (Manual) 1.3 H D-Dimer ABG pH POC ABG pCO2 51.5 H POC ABG pO2 70.0 L ABG pO2 ABG HCO3 ABG O2 Saturation ABG Base Excess ABG Hemoglobin 10.1 L ABG Oxyhemoglobin ABG Sodium 131.5 L ABG Potassium 3.1 L ABG Chloride 93.0 L ABG Glucose 188 H Oxyhemoglobin Sodium Potassium Chloride Carbon Dioxide BUN Creatinine Glucose POC Glucose 147 H Lactic Acid Calcium Magnesium Ferritin Total Bilirubin Direct Bilirubin AST ALT Alkaline Phosphatase Lactate Dehydrogenase C-Reactive Protein Total Protein Albumin Triglycerides Arterial Blood Glucose 188 H Arterial Blood Ionized Calcium Urine WBC (Auto) Coronavirus (PCR) SARS-CoV-2 IgG Ab 06/14/20 06/14/20 06/14/20 07:15 11:30 11:50 WBC RBC Hgb Hct MCV MCH MCHC RDW Lymph % (Auto) Lymph # (Auto) Seg Neutrophils % Seg Neuts % (Manual) Lymphocytes % (Manual) Nucleated RBC % Seg Neutrophils # Seg Neutrophils # Man Lymphocytes # (Manual) Monocytes # (Manual) D-Dimer ABG pH POC ABG pCO2 POC ABG pO2 ABG pO2 ABG HCO3 ABG O2 Saturation ABG Base Excess ABG Hemoglobin ABG Oxyhemoglobin ABG Sodium ABG Potassium ABG Chloride ABG Glucose Oxyhemoglobin Sodium 135 L Potassium 3.5 L Chloride 90.4 L Carbon Dioxide 38 H BUN Creatinine 0.5 L Glucose 190 H POC Glucose 176 H Lactic Acid Calcium Magnesium Ferritin 1496.0 H Total Bilirubin Direct Bilirubin AST ALT 81 H Alkaline Phosphatase Lactate Dehydrogenase C-Reactive Protein Total Protein Albumin 2.9 L Triglycerides Arterial Blood Glucose Arterial Blood Ionized Calcium Urine WBC (Auto) Coronavirus (PCR) SARS-CoV-2 IgG Ab 06/14/20 06/15/20 06/15/20 23:31 04:00 05:00 WBC RBC Hgb Hct MCV MCH MCHC RDW Lymph % (Auto) Lymph # (Auto) Seg Neutrophils % Seg Neuts % (Manual) Lymphocytes % (Manual) Nucleated RBC % Seg Neutrophils # Seg Neutrophils # Man Lymphocytes # (Manual) Monocytes # (Manual) D-Dimer ABG pH POC ABG pCO2 POC ABG pO2 ABG pO2 ABG HCO3 ABG O2 Saturation ABG Base Excess ABG Hemoglobin ABG Oxyhemoglobin ABG Sodium ABG Potassium ABG Chloride ABG Glucose Oxyhemoglobin Sodium 133 L Potassium Chloride 91.1 L Carbon Dioxide 34 H BUN Creatinine 0.4 L Glucose 159 H POC Glucose 200 H Lactic Acid Calcium Magnesium Ferritin Total Bilirubin 2.00 H Direct Bilirubin AST 47 H ALT 77 H Alkaline Phosphatase Lactate Dehydrogenase C-Reactive Protein Total Protein Albumin 2.6 L Triglycerides 152 H Arterial Blood Glucose Arterial Blood Ionized Calcium Urine WBC (Auto) Coronavirus (PCR) SARS-CoV-2 IgG Ab 06/15/20 06/15/20 06/15/20 05:35 06:27 11:38 WBC RBC Hgb Hct MCV MCH MCHC RDW Lymph % (Auto) Lymph # (Auto) Seg Neutrophils % Seg Neuts % (Manual) Lymphocytes % (Manual) Nucleated RBC % Seg Neutrophils # Seg Neutrophils # Man Lymphocytes # (Manual) Monocytes # (Manual) D-Dimer ABG pH POC ABG pCO2 61.0 H POC ABG pO2 67.9 L ABG pO2 ABG HCO3 ABG O2 Saturation ABG Base Excess ABG Hemoglobin 10.4 L ABG Oxyhemoglobin ABG Sodium 132.7 L ABG Potassium 3.3 L ABG Chloride 92.0 L ABG Glucose 158 H Oxyhemoglobin Sodium Potassium Chloride Carbon Dioxide BUN Creatinine Glucose POC Glucose 148 H 197 H Lactic Acid Calcium Magnesium Ferritin Total Bilirubin Direct Bilirubin AST ALT Alkaline Phosphatase Lactate Dehydrogenase C-Reactive Protein Total Protein Albumin Triglycerides Arterial Blood Glucose 158 H Arterial Blood Ionized Calcium Urine WBC (Auto) Coronavirus (PCR) SARS-CoV-2 IgG Ab 06/15/20 06/15/20 06/16/20 17:29 Unknown 00:01 WBC 20.7 H RBC 2.57 L Hgb 8.9 L Hct 25.8 L MCV 101 H MCH 35 H MCHC 35 H RDW 16.0 H Lymph % (Auto) Lymph # (Auto) Seg Neutrophils % Seg Neuts % (Manual) 83.0 H Lymphocytes % (Manual) 8.0 L Nucleated RBC % Seg Neutrophils # Seg Neutrophils # Man 17.2 H Lymphocytes # (Manual) Monocytes # (Manual) 1.2 H D-Dimer ABG pH POC ABG pCO2 POC ABG pO2 ABG pO2 ABG HCO3 ABG O2 Saturation ABG Base Excess ABG Hemoglobin ABG Oxyhemoglobin ABG Sodium ABG Potassium ABG Chloride ABG Glucose Oxyhemoglobin Sodium Potassium Chloride Carbon Dioxide BUN Creatinine Glucose POC Glucose 231 H 257 H Lactic Acid Calcium Magnesium Ferritin Total Bilirubin Direct Bilirubin AST ALT Alkaline Phosphatase Lactate Dehydrogenase C-Reactive Protein Total Protein Albumin Triglycerides Arterial Blood Glucose Arterial Blood Ionized Calcium Urine WBC (Auto) Coronavirus (PCR) SARS-CoV-2 IgG Ab 06/16/20 06/16/20 06/16/20 04:00 04:00 05:22 WBC 13.8 H RBC 2.03 L Hgb 7.6 L Hct 20.7 L MCV 102 H MCH 37 H MCHC 37 H RDW 16.2 H Lymph % (Auto) 4.4 L Lymph # (Auto) 0.6 L Seg Neutrophils % Seg Neuts % (Manual) Lymphocytes % (Manual) Nucleated RBC % Seg Neutrophils # 12.7 H Seg Neutrophils # Man Lymphocytes # (Manual) Monocytes # (Manual) D-Dimer ABG pH POC ABG pCO2 POC ABG pO2 ABG pO2 ABG HCO3 ABG O2 Saturation ABG Base Excess ABG Hemoglobin ABG Oxyhemoglobin ABG Sodium ABG Potassium ABG Chloride ABG Glucose Oxyhemoglobin Sodium 130 L Potassium Chloride 88.9 L Carbon Dioxide 36 H BUN Creatinine 0.3 L Glucose 276 H POC Glucose 250 H Lactic Acid Calcium Magnesium Ferritin Total Bilirubin Direct Bilirubin AST ALT Alkaline Phosphatase Lactate Dehydrogenase C-Reactive Protein Total Protein Albumin Triglycerides Arterial Blood Glucose Arterial Blood Ionized Calcium Urine WBC (Auto) Coronavirus (PCR) SARS-CoV-2 IgG Ab 06/16/20 06/16/20 06/17/20 12:44 18:18 00:39 WBC RBC Hgb Hct MCV MCH MCHC RDW Lymph % (Auto) Lymph # (Auto) Seg Neutrophils % Seg Neuts % (Manual) Lymphocytes % (Manual) Nucleated RBC % Seg Neutrophils # Seg Neutrophils # Man Lymphocytes # (Manual) Monocytes # (Manual) D-Dimer ABG pH POC ABG pCO2 POC ABG pO2 ABG pO2 ABG HCO3 ABG O2 Saturation ABG Base Excess ABG Hemoglobin ABG Oxyhemoglobin ABG Sodium ABG Potassium ABG Chloride ABG Glucose Oxyhemoglobin Sodium Potassium Chloride Carbon Dioxide BUN Creatinine Glucose POC Glucose 279 H 239 H 247 H Lactic Acid Calcium Magnesium Ferritin Total Bilirubin Direct Bilirubin AST ALT Alkaline Phosphatase Lactate Dehydrogenase C-Reactive Protein Total Protein Albumin Triglycerides Arterial Blood Glucose Arterial Blood Ionized Calcium Urine WBC (Auto) Coronavirus (PCR) SARS-CoV-2 IgG Ab 06/17/20 06/17/20 06/17/20 03:40 04:08 10:54 WBC RBC Hgb Hct MCV MCH MCHC RDW Lymph % (Auto) Lymph # (Auto) Seg Neutrophils % Seg Neuts % (Manual) Lymphocytes % (Manual) Nucleated RBC % Seg Neutrophils # Seg Neutrophils # Man Lymphocytes # (Manual) Monocytes # (Manual) D-Dimer ABG pH POC ABG pCO2 65.7 H POC ABG pO2 ABG pO2 ABG HCO3 ABG O2 Saturation ABG Base Excess ABG Hemoglobin 11.9 L ABG Oxyhemoglobin ABG Sodium ABG Potassium ABG Chloride 93.0 L ABG Glucose 244 H Oxyhemoglobin Sodium Potassium Chloride Carbon Dioxide BUN Creatinine Glucose POC Glucose 221 H 248 H Lactic Acid Calcium Magnesium Ferritin Total Bilirubin Direct Bilirubin AST ALT Alkaline Phosphatase Lactate Dehydrogenase C-Reactive Protein Total Protein Albumin Triglycerides Arterial Blood Glucose 244 H Arterial Blood Ionized Calcium Urine WBC (Auto) Coronavirus (PCR) SARS-CoV-2 IgG Ab Chest x-ray: image reviewed Allied health notes reviewed: RT
[2020-06-17] MEDS: DOCUSATE SODIUM 100 MG/10 ML ORAL LIQD PO SCH ×2 (18:28→22:32)
[2020-06-17] MEDS: POLYETHYLENE GLYCOL 3350 17 GM POWDER PO SCH (22:31)
[2020-06-17] MEDS: INSULIN GLARGINE 100 UNITS/ML SUB-Q SCH (22:32)
[2020-06-18] MEDS ORDERED: SODIUM BICARB 8.4% 50 MEQ/50 ML SYRINGE IV ONE ×2 (00:03→00:45)
[2020-06-18] MEDS: INSULIN LISPRO 100 UNIT/ML VIAL 3 mL SUB-Q SCH ×4 (00:13→17:34)
[2020-06-18] MEDS: NORepinephrine/NS 4 MG-250 ML 4 MG/250 ML BAG IV SCH ×5 (01:35→21:56)
[2020-06-18] MEDS: fentaNYL DRIP Premix 2,000 MCG/100 ML BAG IV SCH ×4 (04:40→21:58)
[2020-06-18] MEDS: methylPREDNISolone Sod Succinate 40 MG/1 ML INJ IV SCH ×2 (06:23→17:34)
[2020-06-18] MEDS: IPRATROPIUM/ALBUTEROL SULFATE 3 ML AMPUL.NEB IH SCH ×2 (07:50→20:32)
[2020-06-18] MEDS ORDERED: INSULIN GLARGINE 100 UNITS/ML SUB-Q ONE (10:00)
[2020-06-18] MEDS: QUEtiapine 100 MG TAB PO SCH ×2 (10:24→21:39)
[2020-06-18] MEDS: FAMOTIDINE 20 MG TAB PO SCH ×2 (10:24→21:39)
[2020-06-18] MEDS: SENNOSIDES 8.6 MG TAB PO SCH ×2 (10:24→21:39)
[2020-06-18] MEDS: ENOXAPARIN 120 MG/0.8 ML INJ SUB-Q SCH ×2 (10:25→21:39)
[2020-06-18] MEDS: DOCUSATE SODIUM 100 MG/10 ML ORAL LIQD PO SCH ×2 (10:25→21:39)
[2020-06-18] MEDS: FOLIC ACID 1 MG TAB PO SCH (10:25)
--- NOTE | 2020-06-18 11:23 | Progress Note ---
Assessment and Plan Assessment and plan: - Acute hypoxemic respiratory failure; Patient intubated and on vent support --Severe COVID-19 bilateral pneumonia Coronavirus protocol: IV steroid therapy, completed remdesivir, isolation precautions, contact precautions, prone positioning while in bed, pulmonary toilet. ID following SARS CoV-2 IgG positive patient is NOT a candidate for COVID convalescent plasma --Severe sepsis/septic shock, due to COVID 19 PNA cont pressors as needed -- Acute kidney injury (SEN) , likely vasomotor nephropathy Resolved, IV fluids, avoid nephrotoxins -- Alcohol dependence; no episodes of withdrawal symptoms Thiamine, folic acid, multivitamin, CIWA protocol. -- Elevated liver function tests Suspected secondary to alcoholic liver disease. Supportive care, alcohol cessat ion, patient counseled. --History of EtOH dependence -- DVT prophylaxis On therapeutic Lovenox 06/16/2020. Patient currently on mechanical ventilation with AC mode rate 30, tidal volume 500, FiO2 70% and PEEP of 16. Continue anticoagulation with Lovenox 110 milligrams subcu every 12 hours. Wean sedation of fentanyl/Versed as needed. Currently with IV steroids of Solu-Medrol 40 mg IV every 12 hours. Patient will likely need tracheostomy per pulmonary recommendations. Continue pressors to maintain MAP > 65. 06/17/2020. Patient currently on mechanical ventilation with AC mode rate 30, t idal volume 500, FiO2 65% and PEEP of 16. Continue anticoagulation with Lovenox 110 milligrams subcu every 12 hours. Wean sedation of fentanyl/Versed as needed. Currently with IV steroids of Solu-Medrol 40 mg IV every 12 hours. Patient will likely need tracheostomy per pulmonary recommendations. 06/18/2020. Patient currently on mechanical ventilation with AC mode rate 30, tidal volume 500, FiO2 70% and PEEP of 16. Continue Lovenox for anticoagulation and fentanyl/Versed for sedation. Wean steroids per pulmonary. CIWA protocol initiated for history of EtOH dependence The high probability of a clinically significant, sudden or life threatening deterioration of the [respiratory] system(s) required my full and direct attention, intervention and personal management. The aggregate critical care time was [31] minutes. This time is in addition to time spent performing reported procedures but includes the following: [x] Data Review and interpretation [x] Patient assessment and monitoring of vital signs [x] Documentation [x] Medication orders and management History Interval history: no new issues Hospitalist Physical - Constitutional Vitals: Temp Pulse Resp BP Pulse Ox 98.0 F 136 H 36 H 148/85 91 06/18/20 08:00 06/18/20 11:01 06/18/20 11:01 06/18/20 11:01 06/18/20 11:01 General appearance: Present: no acute distress, other - EENT Eyes: Present: PERRL, EOM intact ENT: hearing intact, clear oral mucosa, dentition normal - Neck Neck: Present: supple, normal ROM - Respiratory Respiratory effort: normal Respiratory: bilateral: CTA - Cardiovascular Rhythm: regular Heart Sounds: Present: S1 & S2. Absent: gallop, rub - Extremities Extremities: no ischemia, No edema, Full ROM - Abdominal General gastrointestinal: soft, non-tender, non-distended, normal bowel sounds - Integumentary Integumentary: Present: clear, warm, dry - Neurologic Neurologic: CNII-XII intact, moves all extremities Results - Labs CBC & Chem 7: 06/16/20 04:00 06/16/20 04:00 Labs: Laboratory Last Values WBC 13.8 K/mm3 (4.5-11.0) H 06/16/20 04:00 RBC 2.03 M/mm3 (3.65-5.03) L 06/16/20 04:00 Hgb 7.6 gm/dl (11.8-15.2) L 06/16/20 04:00 Hct 20.7 % (35.5-45.6) L 06/16/20 04:00 MCV 102 fl (84-94) H 06/16/20 04:00 MCH 37 pg (28-32) H 06/16/20 04:00 MCHC 37 % (32-34) H 06/16/20 04:00 RDW 16.2 % (13.2-15.2) H 06/16/20 04:00 Plt Count 208 K/mm3 (140-440) 06/16/20 04:00 Lymph % (Auto) 4.4 % (13.4-35.0) L 06/16/20 04:00 Green % (Auto) 3.6 % (0.0-7.3) 06/16/20 04:00 Eos % (Auto) 0.0 % (0.0-4.3) 06/16/20 04:00 Baso % (Auto) 0.3 % (0.0-1.8) 06/16/20 04:00 Lymph # (Auto) 0.6 K/mm3 (1.2-5.4) L 06/16/20 04:00 Green # (Auto) 0.5 K/mm3 (0.0-0.8) 06/16/20 04:00 Eos # (Auto) 0.0 K/mm3 (0.0-0.4) 06/16/20 04:00 Baso # (Auto) 0.0 K/mm3 (0.0-0.1) 06/16/20 04:00 Add Manual Diff Complete 06/15/20 Unknown Total Counted 100 06/15/20 Unknown Seg Neutrophils % Health Inspector Food 06/16/20 04:00 Seg Neuts % (Manual) 83.0 % (40.0-70.0) H 06/15/20 Unknown Band Neutrophils % 0 % 06/15/20 Unknown Lymphocytes % (Manual) 8.0 % (13.4-35.0) L 06/15/20 Unknown Reactive Lymphs % (Man) 0 % 06/15/20 Unknown Monocytes % (Manual) 6.0 % (0.0-7.3) 06/15/20 Unknown Eosinophils % (Manual) 0 % (0.0-4.3) 06/15/20 Unknown Basophils % (Manual) 0 % (0.0-1.8) 06/15/20 Unknown Metamyelocytes % 3.0 % 06/15/20 Unknown Myelocytes % 0 % 06/15/20 Unknown Promyelocytes % 0 % 06/15/20 Unknown Blast Cells % 0 % 06/15/20 Unknown Nucleated RBC % Not Reportable 06/15/20 Unknown Seg Neutrophils # 12.7 K/mm3 (1.8-7.7) H 06/16/20 04:00 Seg Neutrophils # Man 17.2 K/mm3 (1.8-7.7) H 06/15/20 Unknown Band Neutrophils # 0.0 K/mm3 06/15/20 Unknown Lymphocytes # (Manual) 1.7 K/mm3 (1.2-5.4) 06/15/20 Unknown Abs React Lymphs (Man) 0.0 K/mm3 06/15/20 Unknown Monocytes # (Manual) 1.2 K/mm3 (0.0-0.8) H 06/15/20 Unknown Eosinophils # (Manual) 0.0 K/mm3 (0.0-0.4) 06/15/20 Unknown Basophils # (Manual) 0.0 K/mm3 (0.0-0.1) 06/15/20 Unknown Metamyelocytes # 0.6 K/mm3 06/15/20 Unknown Myelocytes # 0.0 K/mm3 06/15/20 Unknown Promyelocytes # 0.0 K/mm3 06/15/20 Unknown Blast Cells # 0.0 K/mm3 06/15/20 Unknown WBC Morphology Not Reportable 06/15/20 Unknown Hypersegmented Neuts Not Reportable 06/15/20 Unknown Hyposegmented Neuts Not Reportable 06/15/20 Unknown Hypogranular Neuts Not Reportable 06/15/20 Unknown Smudge Cells Not Reportable 06/15/20 Unknown Toxic Granulation Not Reportable 06/15/20 Unknown Toxic Vacuolation Not Reportable 06/15/20 Unknown Dohle Bodies Not Reportable 06/15/20 Unknown Pelger-Huet Anomaly Not Reportable 06/15/20 Unknown Jason Rods Not Reportable 06/15/20 Unknown Platelet Estimate Consistent w auto 06/15/20 Unknown Clumped Platelets Not Reportable 06/15/20 Unknown Plt Clumps, EDTA Not Reportable 06/15/20 Unknown Large Platelets Not Reportable 06/15/20 Unknown Giant Platelets Not Reportable 06/15/20 Unknown Platelet Satelliting Not Reportable 06/15/20 Unknown Plt Morphology Comment Not Reportable 06/15/20 Unknown RBC Morphology Not Reportable 06/15/20 Unknown Dimorphic RBCs Not Reportable 06/15/20 Unknown Polychromasia Few 06/15/20 Unknown Hypochromasia 1+ 06/15/20 Unknown Poikilocytosis Not Reportable 06/15/20 Unknown Anisocytosis 1+ 06/15/20 Unknown Microcytosis Not Reportable 06/15/20 Unknown Macrocytosis 1+ 06/15/20 Unknown Spherocytes Not Reportable 06/15/20 Unknown Pappenheimer Bodies Not Reportable 06/15/20 Unknown Sickle Cells Not Reportable 06/15/20 Unknown Target Cells Not Reportable 06/15/20 Unknown Tear Drop Cells Not Reportable 06/15/20 Unknown Ovalocytes Not Reportable 06/15/20 Unknown Stomatocytes Few 06/14/20 07:15 Helmet Cells Not Reportable 06/15/20 Unknown Sinclair-[place] Bodies Not Reportable 06/15/20 Unknown [place] Rings Not Reportable 06/15/20 Unknown Izabella Cells Not Reportable 06/15/20 Unknown Bite Cells Not Reportable 06/15/20 Unknown Crenated Cell Not Reportable 06/15/20 Unknown Elliptocytes Not Reportable 06/15/20 Unknown Acanthocytes (Spur) Not Reportable 06/15/20 Unknown Rouleaux Not Reportable 06/15/20 Unknown Hemoglobin C Crystals Not Reportable 06/15/20 Unknown Schistocytes Few 06/15/20 Unknown Malaria parasites Not Reportable 06/15/20 Unknown Josue Bodies Not Reportable 06/15/20 Unknown Hem Pathologist Commnt No 06/15/20 Unknown PT 14.4 Sec. (12.2-14.9) 06/13/20 14:14 INR 1.13 (0.87-1.13) 06/13/20 14:14 D-Dimer 1887.82 ng/mlDDU (0-234) H 05/20/20 08:16 ABG pH 7.40 (7.320-7.450) 06/18/20 03:14 POC ABG pCO2 65.4 mmHg (32.0-48.0) H 06/18/20 03:14 ABG pCO2 69.6 mm Hg 06/05/20 12:35 POC ABG pO2 160.7 mmHg (83-108) H 06/18/20 03:14 ABG pO2 127.9 mm Hg (80.0-90.0) H 06/05/20 12:35 POC ABG HCO3 39.6 06/18/20 03:14 ABG HCO3 41.1 mmol/L (20.0-26.0) H 06/05/20 12:35 ABG O2 Saturation 98.3 % (95.0-99.0) 06/05/20 12:35 ABG O2 Content 18.2 (0.0-44) 06/05/20 12:35 POC ABG Base Excess 13.2 06/18/20 03:14 ABG Base Excess 13.0 mmol/L (-2.0-3.0) H 06/05/20 12:35 ABG Hemoglobin 7.8 (12.0-17.5) L 06/18/20 03:14 ABG Oxyhemoglobin 86.3 (94-98) L 05/09/20 15:56 ABG Carboxyhemoglobin 2.2 % (0.0-5.0) 06/05/20 12:35 ABG Methemoglobin 0.5 % (0.0-1.5) 06/05/20 12:35 ABG Sodium 139.8 mmol/L (136.0-145.0) 06/18/20 03:14 ABG Potassium 3.6 mmol/L (3.40-4.50) 06/18/20 03:14 ABG Chloride 95.0 mmol/L (98-107) L 06/18/20 03:14 ABG Glucose 251 mg/dL (65-95) H 06/18/20 03:14 Oxyhemoglobin 95.6 % (95.0-99.0) 06/05/20 12:35 Carboxyhemoglobin 1.3 (0.5-1.5) 05/09/20 15:56 FiO2 100 06/18/20 03:14 Sodium 130 mmol/L (137-145) L 06/16/20 04:00 Potassium 3.8 mmol/L (3.6-5.0) 06/16/20 04:00 Chloride 88.9 mmol/L (98-107) L 06/16/20 04:00 Carbon Dioxide 36 mmol/L (22-30) H 06/16/20 04:00 Anion Gap 9 mmol/L 06/16/20 04:00 BUN 20 mg/dL (9-20) 06/16/20 04:00 Creatinine 0.3 mg/dL (0.8-1.3) L 06/16/20 04:00 Estimated GFR > 60 ml/min 06/16/20 04:00 BUN/Creatinine Ratio 67 % 06/16/20 04:00 Glucose 276 mg/dL (75-100) H 06/16/20 04:00 POC Glucose 243 mg/dL (70-105) H 06/18/20 05:34 Lactic Acid 1.80 mmol/L (0.7-2.0) 05/09/20 Unknown Calcium 8.4 mg/dL (8.4-10.2) 06/16/20 04:00 Phosphorus 3.10 mg/dL (2.5-4.5) 06/15/20 04:00 Magnesium 1.90 mg/dL (1.7-2.3) 06/15/20 04:00 Ferritin 1496.0 ng/mL (30.0-300.0) H 06/14/20 11:50 Total Bilirubin 2.00 mg/dL (0.1-1.2) H 06/15/20 04:00 Direct Bilirubin 0.6 mg/dL (0-0.2) H 05/11/20 07:30 Indirect Bilirubin 0.9 mg/dL 05/11/20 07:30 AST 47 units/L (5-40) H 06/15/20 04:00 ALT 77 units/L (7-56) H 06/15/20 04:00 Alkaline Phosphatase 96 units/L (35-129) 06/15/20 04:00 Lactate Dehydrogenase 705 units/L (91-180) H 05/20/20 08:16 C-Reactive Protein 3.10 mg/dL (0.00-1.30) H 05/20/20 08:16 Total Protein 6.3 g/dL (6.3-8.2) 06/15/20 04:00 Albumin 2.6 g/dL (3.9-5) L 06/15/20 04:00 Albumin/Globulin Ratio 0.7 % 06/15/20 04:00 Triglycerides 152 mg/dL (2-149) H 06/15/20 05:00 Procalcitonin 0.94 ng/mL (<0.15) 06/14/20 11:50 Arterial Blood Glucose 251 mg/dL (65-95) H 06/18/20 03:14 Arterial Blood Ionized Calcium 4.8 mg/dL (4.6-5.3) 06/18/20 03:14 Urine Color Fauzia (Yellow) 05/10/20 Unknown Urine Turbidity Clear (Clear) 05/10/20 Unknown Urine pH 5.0 (5.0-7.0) 05/10/20 Unknown Ur Specific [place] 1.019 (1.003-1.030) 05/10/20 Unknown Urine Protein 100 mg/dl mg/dL (Negative) 05/10/20 Unknown Urine Glucose (UA) Neg mg/dL (Negative) 05/10/20 Unknown Urine Ketones Neg mg/dL (Negative) 05/10/20 Unknown Urine Blood Lg (Negative) 05/10/20 Unknown Urine Nitrite Neg (Negative) 05/10/20 Unknown Urine Bilirubin Neg (Negative) 05/10/20 Unknown Urine Urobilinogen 2.0 mg/dL (<2.0) 05/10/20 Unknown Ur Leukocyte Esterase Neg (Negative) 05/10/20 Unknown Urine WBC (Auto) 11.0 /HPF (0.0-6.0) H 05/10/20 Unknown Urine RBC (Auto) 2.0 /HPF (0.0-6.0) 05/10/20 Unknown U Epithel Cells (Auto) 1.0 /HPF (0-13.0) 05/10/20 Unknown Urine Bacteria (Auto) 1+ /HPF (Negative) 05/10/20 Unknown Urine Mucus Few /HPF 05/10/20 Unknown Plasma/Serum Alcohol < 0.01 % (0-0.07) 05/09/20 14:20 Coronavirus (PCR) Positive (Negative) A 05/10/20 Unknown SARS-CoV-2 IgG Ab Reactive (NonReactive) A 05/11/20 07:30 Microbiology: Microbiology 06/14/20 14:39 Peripheral/Venous Blood Culture - Preliminary NO GROWTH AFTER 72 HOURS 06/14/20 14:39 Peripheral/Venous Blood Culture - Preliminary NO GROWTH AFTER 72 HOURS - Diagnostic Impressions Diagnostic Impressions: Echocardiogram 05/20/20 13:02 Transthoracic Echocardiogram Indication: CHF BP: 97/73 Conclusions *The study quality is technically very difficult and limited. *The left ventricular chamber size, wall thickness and systolic function are within normal limits. There are no wall motion abnormalities observed. Ejection fraction is normal. *The estimated ejection fraction is 60-65%. *The pericardium appears normal. Findings Procedure Info: The study quality is technically difficult. Left Ventricle: The left ventricular chamber size, wall thickness and systolic function are within normal limits. There are no wall motion abnormalities observed. Ejection fraction is normal. The estimated ejection fraction is 60-65%. Abnormal left ventricular diastolic filling is observed, consistent with impaired relaxation. Left Atrium: The left atrium is normal in size with no visual thrombus identified. Right Ventricle: The right ventricle is not well visualized. Right Atrium: The right atrium is not well visualized. Aortic Valve: The aortic valve is trileaflet. The leaflets are thin with normal excursion. There is no aortic stenosis or regurgitation present. Mitral Valve: The mitral valve appears normal in structure and function. Tricuspid Valve: The tricuspid valve appears normal in structure and function. Unable to estimate the right ventricular systolic pressure. Pulmonic Valve: The pulmonic valve is not well visualized. There is no evidence of pulmonic regurgitation. There is no pulmonic stenosis. Pericardium: The pericardium appears normal. Pulmonary Artery: The main pulmonary artery is not well visualized. Venous: The inferior vena cava appears normal in size. Measurements Chambers 2D Name Value Normal Range IVSd (2D) 0.83 cm (0.6 - 1.1) LVPWd (2D) 0.83 cm (0.6 - 1.1) LVIDd (2D) 3.88 cm (3.7 - 5.6) LVIDs (2D) 2.46 cm (2 - 3.8) LV FS (2D) 36.52 % - EF Teichholz (2D) 66.97 % - Ao root diameter (2D) 3.47 cm (2 - 3.7) Volumes/Mass Name Value Normal Range LA ESV SP 4CH (A/L) 22.4 ml - LA ESV SP 2CH (A/L) 22.89 ml - LA ESV BP (A/L) 23.06 ml - LA ESV SP 4CH (MOD) 21.09 ml - LA ESV SP 2CH (MOD) 22.44 ml - Diastolic/Systolic Function Name Value Normal Range MV E-wave Vmax 0.48 m/sec - MV deceleration time 156.3 msec - MV A-wave Vmax 0.59 m/sec - MV E:A ratio 0.81 ratio - Aortic Valve Name Value Normal Range AV Vmax 0.97 m/sec - AV VTI 14.49 cm - AV peak gradient 3.73 mmHg - AV mean gradient 1.89 mmHg - LVOT diameter 2.09 cm - LVOT Vmax 0.72 m/sec - LVOT VTI 10.21 cm - LVOT peak gradient 2.05 mmHg - LVOT mean gradient 1.03 mmHg - SV LVOT 35.17 ml - INNA (continuity Vmax) 2.55 cm2 - INNA (continuity VTI) 2.43 cm2 - Tricuspid Valve Name Value Normal Range TV E-wave Vmax 0.37 m/sec - Pulmonic Valve/Qp:Qs Name Value Normal Range PV Vmax 0.72 m/sec - PV peak gradient 2.06 mmHg - RVOT Vmax 0.85 m/sec - RVOT VTI 9.89 cm - RVOT peak gradient 2.9 mmHg - PV acceleration time 72.31 msec - Cantor/IV: Voiding Method Condom Catheter IV Catheter Type [Right Upper PICC Line arm] IV Catheter Type [Right CVL Internal Jugular] IV Catheter Type [Right Peripheral IV Forearm] IV Catheter Type [Left Forearm Peripheral IV ] IV Catheter Type [Left Wrist] INT / Saline Lock IV Catheter Type [Right Hand] INT / Saline Lock IV Catheter Type [Left Hand] INT / Saline Lock IV Catheter Type [Left Peripheral IV Antecubital] Active Medications - Current Medications Current Medications: Generic Name Dose Route Start Last Admin Trade Name Freq PRN Reason Stop Dose Admin Acetaminophen 650 mg 06/14/20 10:07 06/17/20 12:01 Tylenol FEEDTUBE 650 mg Q4H PRN Administration Pain, Mild (1-3) Albuterol/Ipratropium 1 ampul 06/14/20 20:00 06/18/20 07:50 Duoneb *Not For Prn Use* IH 06/19/20 08:01 1 ampul BIDRT DESIRE Administration Alprazolam 0.25 mg 05/20/20 17:53 06/08/20 08:29 Xanax PO 0.25 mg Q8H PRN Administration Anxiety Lipase/Protease/Amylase 1 each 05/22/20 13:01 Pancrecaden [place] 10,500 Unit FEEDTUBE PRN PRN For Clogged Feeding Tube Bisacodyl 10 mg 06/07/20 10:00 06/18/20 10:25 Dulcolax ND 10 mg QDAY DESIRE Administration Docusate Sodium 100 mg 05/28/20 14:00 06/18/20 10:25 Colace PO 100 mg BID DESIRE Administration Enoxaparin Sodium 110 mg 05/10/20 22:00 06/18/20 10:25 Enoxaparin 1 mg/kg (110 mg) 110 mg SUB-Q Administration Q12HR COUNT INCLUDES THE [facility] Protocol Famotidine 20 mg 05/25/20 22:00 06/18/20 10:24 Pepcid PO 20 mg BID DESIRE Administration Fentanyl 50 mcg 06/09/20 13:53 Sublimaze IV Q10MIN PRN ANALGESIA Folic Acid 1 mg 05/09/20 15:36 06/18/20 10:25 Folvite PO 1 mg QDAY COUNT INCLUDES THE [facility] Administration Hydrophilic Ointment 1 applic 05/21/20 20:33 Vaseline Lip Therapy TP Q2HR PRN Dry Lips Midazolam HCl 100 mg/ Sodium 100 mls @ 2 mls/hr 06/02/20 14:00 06/18/20 10:30 Chloride IV 4 mg/hr TITR DESIRE 4 mls/hr Titration Protocol 2 MG/HR Norepinephrine 4 mg in 250 mls @ 7.5 mls/hr 06/04/20 16:00 06/18/20 10:28 Levophed Drip 4 Mg/Ns 250 Ml IV 8 mcg/min TITR DESIRE 30 mls/hr Titration Protocol 2 MCG/MIN Propofol 500 mg in 50 mls @ 3.309 mls/hr 06/08/20 11:00 06/17/20 18:25 Propofol IV 35 mcg/kg/min TITR DESIRE 23.163 mls/hr Administration Protocol 5 MCG/KG/MIN Fentanyl Citrate 2,000 mcg in 100 mls @ 5.32 mls/hr 06/09/20 14:00 06/18/20 10:31 Fentanyl Drip Premix IV 3 mcg/kg/hr TITR DESIRE 15.96 mls/hr Titration Protocol 1 MCG/KG/HR Vasopressin 20 unit/ Sodium 101 mls @ 9.09 mls/hr 06/09/20 18:00 Chloride IV TITR DESIRE Protocol 0.03 UNITS/MIN Insulin Glargine 20 units 06/18/20 22:00 Insulin Glargine 100 Units/Ml SUB-Q QHS COUNT INCLUDES THE [facility] Insulin Human Lispro 0 unit 05/29/20 14:00 06/18/20 06:23 Humalog SUB-Q 4 unit Q6H COUNT INCLUDES THE [facility] Administration Protocol Methylprednisolone Sodium Succinate 40 mg 05/20/20 18:00 06/18/20 06:23 Solu-Medrol IV 40 mg Q12H COUNT INCLUDES THE [facility] Administration Metoprolol Tartrate 5 mg 05/20/20 17:52 06/17/20 12:36 Metoprolol IV 5 mg Q6HR PRN Administration Tachyarrhythmias Multi-Ingred Cream/Lotion/Oil/Oint 1 applic 05/21/20 20:33 Artificial Tears Ophth Oint OU Q4HR PRN Dry Eye(s) Polyethylene Glycol 17 gm 05/28/20 22:00 06/17/20 22:31 Miralax 3350 PO 17 gm QHS DESIRE Administration Quetiapine Fumarate 300 mg 06/10/20 22:00 06/18/20 10:24 Seroquel PO 300 mg BID DESIRE Administration Senna 17.2 mg 06/07/20 10:00 06/18/20 10:24 Senokot PO 17.2 mg BID DESIRE Administration Simple Syrup 15 ml 05/22/20 13:01 Simple Syrup FEEDTUBE PRN PRN Hypoglycemia Simple Syrup 30 ml 05/22/20 13:01 Simple Syrup FEEDTUBE PRN PRN Hypoglycemia Sodium Bicarbonate 325 mg 05/22/20 13:01 Sodium Bicarbonate FEEDTUBE PRN PRN For Clogged Feeding Tube Sodium Chloride 10 ml 05/09/20 22:00 06/18/20 10:27 Sodium Chloride Flush Syringe 10 Ml IV 10 ml BID DESIRE Administration Nutrition/Malnutrition Assess - Dietary Evaluation Nutrition/Malnutrition Findings: Nutrition Notes Start: 05/17/20 14:10 Freq: Status: Active Protocol: Document 06/17/20 12:23 AB (Rec: 06/17/20 12:29 AB [id number]) Co-Sign 06/17/20 12:23 LM Nutrition Notes Initial or Follow up Reassessment Current Diagnosis Sepsis,Respiratory Failure Other Pertinent Diagnosis Bilat pneu, COVID-19 (+), EtOH dependence Current Diet Vital HP at 65 ml/hr (goal rate) Labs/Tests POC BG 221 Pertinent Medications Propofol at 19.854 ml/hr Height 6 ft Weight 107.1 kg Ruby Body Weight (kg) 80.90 BMI 32.0 Weight Status Obese Subjective/Other Information F/U for TF tolerate/rate and oral secretions. Ultrasonic Cleaner observed TF running at goal rate. Per RN, pt still having cream colored oral secretions. Percent of energy/protein needs met: 86%/84% Burn Absent Trauma Absent GI Symptoms None Current % PO Negligible Minimum of two criteria No physical signs of malnutrition #1 Nutrition Diagnosis Inadequate oral intake Diagnosis Progress(for reassessment Continues documentation) Is patient on ventilator? Yes Is Patient Ambulatory and/or Out of Bed No REE-(Elliott-St Jeor-confined to bed) 2360.412 Kcal/Kg value to use for calculation 17 Approximate Energy Requirements Using 1821 kcal/Kg Calculation Used for Recommendations Kcal/kg Additional Notes Pro needs >2g/kg IBW: at least 162g/day Fluid needs 1ml/kcal Nutrition Intervention Change Diet Order: Continue TF with rate change Nutrition Support: Vital HP at 65ml/hr with 50ml water flush q4h. For hyponatremia, flush 50 ml q6h Kcal 1,560 Protein (gm) 136 Fluid (mL) 1,304 Goal #1 TF tolerance Goal #2 TF (at goal rate) to meet at least 75% energy and pro needs Anticipated Discharge Needs: Unable to identify at this time Follow-Up By: 06/24/20 Additional Comments F/U for TF tolerance and BM
[2020-06-18] MEDS: ACETAMINOPHEN 325 MG/10.15 ML ORAL LIQD UNIT DOSE FEEDTUBE PRN (12:50)
[2020-06-18] MEDS: PHENobarbital 20 MG/5 ML ORAL LIQD FEEDTUBE SCH ×2 (13:00→21:39)
--- NOTE | 2020-06-18 13:12 | Progress Note ---
Assessment and Plan Acute hypoxemic respiratory failure due to COVID-19 Severe COVID infection Severe Sepsis Bilateral pneumonia Acute kidney injury (SEN) with acute tubular necrosis (ATN)-improving h/o Alcohol dependence Elevated liver function tests probably secondary COVID Continue to wean supplemental oxygen for O2 sats>90% Worsening respiratory status, reculture r/o super-imposed infection Continue lung protective strategies CXR daily, monitor airway pressures closely Start vasopressor support, resume propofol and titrate to RASS -1 to -2 - VAP bundle addressed, aspiration precautions HOB >40 - Continue lung protective strategies, permissive hypercapnic acceptable. - continue bronchodilators with pulmonary hygiene per RT - wean per pulmonary driven protocols otherwise - accuchecks with glycemic control per SSI (While critically ill target blood glucose of 140-180 mg/dL; avoid hypoglycemia) - continue enteral nutritional support at goal rate as tolerated - Prone positioning as tolerated and indicated - Monitor liver function test , avoid hepatotoxic agents - Avoid nephrotoxins, renally dose all medications, conservative fluid management - continue to avoid benzodiazepines, reduce the possibility of delirium - prn analgesia per CPOT score - Maintenance of sleep-wake cycle, avoid delirium - continue to avoid benzodiazepines, reduce the possibility of delirium - aspiration precautions -Stress ulcer prophylaxis - PT/OT/ROM exercises - continue mobility protocols for pressure ulcer prevention -CXR, ABG as clinically indicated -CBC, BMP as clinically indicated -Supportive transfusions to keep HgB >7g/dL - Monitor hemodynamics closely - continue other care per attending / other consultants COVID SPECIFIC INTERVENTIONS - SARS CoV-2 IgG positive patient is NOT a candidate for COVID convalescent plasma -Completed remdesivir -Steroids -Monitor inflammatory markers per facility protocol- ferritin, Ddimer, CRP, LDH -Continue anticoagulation per System Protocol based on d-dimer -Continue contact and airborne isolation .... Re-evaluate in am & prn CONDITION: CRITICAL PROGNOSIS: GUARDED CODE STATUS: FULL CODE The high probability of a clinically significant, sudden or life-threatening deterioration of the [respiratory, cardiovascular, hematologic & neurologic] system(s) required my full and direct attention, intervention and personal management. The aggregate critical care time was [32] minutes without overlap. Time includes spent on; [x] Data Review and interpretation [x] Patient assessment and monitoring of vital signs [x] Documentation [x] Medication orders and management Subjective Date of service: 06/18/20 Principal diagnosis: Ac hypoxemic resp failure; COVID-19; Severe Sepsis; Shaggy PNA; Alcohol Abuse Interval history: Patient is seen today for: Acute hypoxemic respiratory failure due to COVID-19; Severe Sepsis; Bilateral pneumonia; Alcohol dependence; Elevated liver function tests Seen and examined at bedside; 24hour events reviewed; nursing and respiratory care staff consulted; no adverse overnight events reported to me; resting in bed; remains on MVS with increasing ventilatory requirements, FiO2 at 70% PEEP +16 - had required increasing FIO2 to 100%, back down to 70%. High grade intermittent fevers, hyperglycemia Remains on sedation- Midazolam and Fentanyl. Propofol was stopped for sedation induced hypotension, overnight Objective Vital Signs - 12hr 06/18/20 06/18/20 06/18/20 01:15 01:30 01:45 Temperature Pulse Rate 137 H 131 H 127 H Pulse Rate [ Bilateral Throughout] Respiratory 24 24 26 H Rate Respiratory Rate [Bilateral Throughout] Blood Pressure 106/58 85/48 106/58 O2 Sat by Pulse 96 94 98 Oximetry 06/18/20 06/18/20 06/18/20 02:00 02:15 02:31 Temperature Pulse Rate 130 H 129 H 130 H Pulse Rate [ Bilateral Throughout] Respiratory 24 23 22 Rate Respiratory Rate [Bilateral Throughout] Blood Pressure 105/65 105/65 118/63 O2 Sat by Pulse 98 98 97 Oximetry 06/18/20 06/18/20 06/18/20 02:45 03:00 03:15 Temperature Pulse Rate 130 H 132 H 130 H Pulse Rate [ Bilateral Throughout] Respiratory 23 22 24 Rate Respiratory Rate [Bilateral Throughout] Blood Pressure 121/68 130/65 123/62 O2 Sat by Pulse 96 97 97 Oximetry 06/18/20 06/18/20 06/18/20 03:30 03:42 03:45 Temperature Pulse Rate 141 H 131 H 129 H Pulse Rate [ Bilateral Throughout] Respiratory 17 28 H Rate Respiratory Rate [Bilateral Throughout] Blood Pressure 133/82 133/82 123/75 O2 Sat by Pulse 100 99 98 Oximetry 06/18/20 06/18/20 06/18/20 03:52 04:01 04:15 Temperature Pulse Rate 134 H Pulse Rate [ Bilateral Throughout] Respiratory Rate Respiratory Rate [Bilateral Throughout] Blood Pressure 123/75 123/75 O2 Sat by Pulse 96 100 Oximetry 06/18/20 06/18/20 06/18/20 04:31 04:45 05:00 Temperature Pulse Rate 135 H 131 H 138 H Pulse Rate [ Bilateral Throughout] Respiratory 38 H 34 H 35 H Rate Respiratory Rate [Bilateral Throughout] Blood Pressure 150/80 155/81 147/70 O2 Sat by Pulse 93 93 94 Oximetry 06/18/20 06/18/20 06/18/20 05:15 05:30 05:45 Temperature Pulse Rate 134 H 129 H 133 H Pulse Rate [ Bilateral Throughout] Respiratory 33 H 32 H 32 H Rate Respiratory Rate [Bilateral Throughout] Blood Pressure 156/78 148/73 140/76 O2 Sat by Pulse 94 94 95 Oximetry 06/18/20 06/18/20 06/18/20 06:00 06:15 06:30 Temperature 99.1 F Pulse Rate 132 H 132 H 130 H Pulse Rate [ Bilateral Throughout] Respiratory 34 H 31 H 34 H Rate Respiratory Rate [Bilateral Throughout] Blood Pressure 132/78 133/75 146/72 O2 Sat by Pulse 95 95 95 Oximetry 06/18/20 06/18/20 06/18/20 06:45 07:00 07:15 Temperature Pulse Rate 130 H 127 H 126 H Pulse Rate [ Bilateral Throughout] Respiratory 34 H 35 H 34 H Rate Respiratory Rate [Bilateral Throughout] Blood Pressure 143/75 143/79 146/80 O2 Sat by Pulse 95 94 95 Oximetry 06/18/20 06/18/20 06/18/20 07:31 07:45 07:50 Temperature Pulse Rate 144 H 124 H 129 H Pulse Rate [ 131 H Bilateral Throughout] Respiratory 36 H 35 H Rate Respiratory 30 H Rate [Bilateral Throughout] Blood Pressure 156/78 156/78 140/72 O2 Sat by Pulse 97 95 98 Oximetry 06/18/20 06/18/20 06/18/20 08:00 08:15 08:30 Temperature 98.0 F Pulse Rate 126 H 126 H 129 H Pulse Rate [ Bilateral Throughout] Respiratory 36 H 36 H 35 H Rate Respiratory Rate [Bilateral Throughout] Blood Pressure 145/72 142/79 144/77 O2 Sat by Pulse 93 93 94 Oximetry 06/18/20 06/18/20 06/18/20 08:45 09:00 09:15 Temperature Pulse Rate 125 H 126 H 129 H Pulse Rate [ Bilateral Throughout] Respiratory 36 H 37 H 32 H Rate Respiratory Rate [Bilateral Throughout] Blood Pressure 135/72 140/77 140/72 O2 Sat by Pulse 94 94 95 Oximetry 06/18/20 06/18/20 06/18/20 09:30 09:45 10:00 Temperature Pulse Rate 147 H 123 H 132 H Pulse Rate [ Bilateral Throughout] Respiratory 36 H 21 38 H Rate Respiratory Rate [Bilateral Throughout] Blood Pressure 136/82 135/76 125/79 O2 Sat by Pulse 92 95 94 Oximetry 06/18/20 06/18/20 06/18/20 10:15 10:30 10:45 Temperature Pulse Rate 138 H 149 H 138 H Pulse Rate [ Bilateral Throughout] Respiratory 35 H 38 H 45 H Rate Respiratory Rate [Bilateral Throughout] Blood Pressure 148/85 130/79 130/79 O2 Sat by Pulse 96 96 97 Oximetry 06/18/20 06/18/20 06/18/20 11:01 11:15 11:31 Temperature Pulse Rate 136 H 146 H 142 H Pulse Rate [ Bilateral Throughout] Respiratory 36 H 39 H 33 H Rate Respiratory Rate [Bilateral Throughout] Blood Pressure 148/85 62/28 79/28 O2 Sat by Pulse 91 94 94 Oximetry 06/18/20 06/18/20 06/18/20 11:45 12:00 12:15 Temperature 99.2 F Pulse Rate 135 H 136 H 137 H Pulse Rate [ Bilateral Throughout] Respiratory 35 H 33 H 28 H Rate Respiratory Rate [Bilateral Throughout] Blood Pressure 79/28 97/68 99/63 O2 Sat by Pulse 95 96 100 Oximetry 06/18/20 06/18/20 12:30 12:45 Temperature Pulse Rate 132 H 133 H Pulse Rate [ Bilateral Throughout] Respiratory 21 28 H Rate Respiratory Rate [Bilateral Throughout] Blood Pressure 107/63 100/67 O2 Sat by Pulse 99 96 Oximetry Constitutional: agitated, other (middle aged obese male with increased respiratory effort at rest on MVS) Eyes: non-icteric ENT: oropharynx moist, other (ETT 24 cm CHILO) Neck: supple, no JVD Effort: mildly labored Ascultation: Bilateral: diminished breath sounds, rhonchi Percussion: Bilateral: not dull Cardiovascular: regular rate and rhythm, other (S1,S2) Gastrointestinal: normoactive bowel sounds, soft, non-tender, non-distended (protuberant) Integumentary: normal Extremities: no cyanosis, pulses normal, no ischemia or petechiae, edema Neurologic: pupils equal and round, other (unable top assess re: AMS, agitation) Psychiatric: other (sedated) CBC and BMP: 06/26/20 02:17 06/26/20 02:17 ABG, PT/INR, D-dimer: ABG ABG pH 7.40 (7.320-7.450) 06/18/20 03:14 POC ABG pCO2 65.4 mmHg (32.0-48.0) H 06/18/20 03:14 ABG pCO2 69.6 mm Hg 06/05/20 12:35 POC ABG pO2 160.7 mmHg (83-108) H 06/18/20 03:14 ABG pO2 127.9 mm Hg (80.0-90.0) H 06/05/20 12:35 POC ABG HCO3 39.6 06/18/20 03:14 ABG O2 Saturation 98.3 % (95.0-99.0) 06/05/20 12:35 PT/INR, D-dimer PT 14.4 Sec. (12.2-14.9) 06/13/20 14:14 INR 1.13 (0.87-1.13) 06/13/20 14:14 D-Dimer 1887.82 ng/mlDDU (0-234) H 05/20/20 08:16 Abnormal lab findings: Abnormal Labs 05/09/20 05/09/20 05/09/20 12:59 12:59 12:59 WBC 11.8 H RBC Hgb Hct MCV 96 H MCH 34 H MCHC 35 H RDW Lymph % (Auto) 6.9 L Lymph # (Auto) 0.8 L Seg Neutrophils % 87.5 H Seg Neuts % (Manual) Lymphocytes % (Manual) Nucleated RBC % Seg Neutrophils # 10.3 H Seg Neutrophils # Man Lymphocytes # (Manual) Monocytes # (Manual) D-Dimer ABG pH POC ABG pCO2 POC ABG pO2 ABG pO2 ABG HCO3 ABG O2 Saturation ABG Base Excess ABG Hemoglobin ABG Oxyhemoglobin ABG Sodium ABG Potassium ABG Chloride ABG Glucose Oxyhemoglobin Sodium 130 L Potassium 3.5 L Chloride 86.4 L Carbon Dioxide BUN 33 H Creatinine 2.3 H Glucose 156 H POC Glucose Lactic Acid Calcium Magnesium Ferritin Total Bilirubin 3.40 H Direct Bilirubin 1.7 H AST 385 H ALT 134 H Alkaline Phosphatase Lactate Dehydrogenase C-Reactive Protein Total Protein Albumin 3.0 L Triglycerides Arterial Blood Glucose Arterial Blood Ionized Calcium Urine WBC (Auto) Coronavirus (PCR) SARS-CoV-2 IgG Ab 05/09/20 05/09/20 05/09/20 12:59 12:59 12:59 WBC RBC Hgb Hct MCV MCH MCHC RDW Lymph % (Auto) Lymph # (Auto) Seg Neutrophils % Seg Neuts % (Manual) Lymphocytes % (Manual) Nucleated RBC % Seg Neutrophils # Seg Neutrophils # Man Lymphocytes # (Manual) Monocytes # (Manual) D-Dimer 3242.51 H ABG pH POC ABG pCO2 POC ABG pO2 ABG pO2 ABG HCO3 ABG O2 Saturation ABG Base Excess ABG Hemoglobin ABG Oxyhemoglobin ABG Sodium ABG Potassium ABG Chloride ABG Glucose Oxyhemoglobin Sodium Potassium Chloride Carbon Dioxide BUN Creatinine Glucose 158 H POC Glucose Lactic Acid 3.50 H* Calcium Magnesium Ferritin Total Bilirubin Direct Bilirubin AST ALT Alkaline Phosphatase Lactate Dehydrogenase 2166 H C-Reactive Protein 39.00 H Total Protein Albumin Triglycerides Arterial Blood Glucose Arterial Blood Ionized Calcium Urine WBC (Auto) Coronavirus (PCR) SARS-CoV-2 IgG Ab 05/09/20 05/09/20 05/09/20 12:59 14:20 14:20 WBC RBC Hgb Hct MCV MCH MCHC RDW Lymph % (Auto) Lymph # (Auto) Seg Neutrophils % Seg Neuts % (Manual) Lymphocytes % (Manual) Nucleated RBC % Seg Neutrophils # Seg Neutrophils # Man Lymphocytes # (Manual) Monocytes # (Manual) D-Dimer 2861.78 H ABG pH POC ABG pCO2 POC ABG pO2 ABG pO2 ABG HCO3 ABG O2 Saturation ABG Base Excess ABG Hemoglobin ABG Oxyhemoglobin ABG Sodium ABG Potassium ABG Chloride ABG Glucose Oxyhemoglobin Sodium Potassium Chloride Carbon Dioxide BUN Creatinine Glucose POC Glucose Lactic Acid 2.20 H* Calcium Magnesium Ferritin 23849.0 H Total Bilirubin Direct Bilirubin AST ALT Alkaline Phosphatase Lactate Dehydrogenase C-Reactive Protein Total Protein Albumin Triglycerides Arterial Blood Glucose Arterial Blood Ionized Calcium Urine WBC (Auto) Coronavirus (PCR) SARS-CoV-2 IgG Ab 05/09/20 05/09/20 05/09/20 14:20 14:20 15:56 WBC RBC Hgb Hct MCV MCH MCHC RDW Lymph % (Auto) Lymph # (Auto) Seg Neutrophils % Seg Neuts % (Manual) Lymphocytes % (Manual) Nucleated RBC % Seg Neutrophils # Seg Neutrophils # Man Lymphocytes # (Manual) Monocytes # (Manual) D-Dimer ABG pH POC ABG pCO2 POC ABG pO2 57.3 L ABG pO2 ABG HCO3 ABG O2 Saturation ABG Base Excess ABG Hemoglobin ABG Oxyhemoglobin 86.3 L ABG Sodium 129.9 L ABG Potassium ABG Chloride ABG Glucose 146 H Oxyhemoglobin Sodium Potassium Chloride Carbon Dioxide BUN Creatinine Glucose 143 H POC Glucose Lactic Acid Calcium Magnesium Ferritin 59563.0 H Total Bilirubin Direct Bilirubin AST ALT Alkaline Phosphatase Lactate Dehydrogenase 1953 H C-Reactive Protein 33.50 H Total Protein Albumin Triglycerides Arterial Blood Glucose 146 H Arterial Blood Ionized Calcium 3.9 L Urine WBC (Auto) Coronavirus (PCR) SARS-CoV-2 IgG Ab 05/10/20 05/10/20 05/10/20 10:32 10:32 18:50 WBC 15.4 H RBC Hgb Hct MCV 97 H MCH 33 H MCHC RDW 13.1 L Lymph % (Auto) Lymph # (Auto) Seg Neutrophils % Seg Neuts % (Manual) 89.0 H Lymphocytes % (Manual) 8.0 L Nucleated RBC % Seg Neutrophils # Seg Neutrophils # Man 13.7 H Lymphocytes # (Manual) Monocytes # (Manual) D-Dimer ABG pH POC ABG pCO2 POC ABG pO2 ABG pO2 ABG HCO3 ABG O2 Saturation ABG Base Excess ABG Hemoglobin ABG Oxyhemoglobin ABG Sodium ABG Potassium ABG Chloride ABG Glucose Oxyhemoglobin Sodium 136 L Potassium Chloride 97.4 L Carbon Dioxide BUN 37 H Creatinine 1.7 H Glucose 209 H POC Glucose Lactic Acid Calcium Magnesium Ferritin > 2000.0 H Total Bilirubin Direct Bilirubin AST ALT Alkaline Phosphatase Lactate Dehydrogenase C-Reactive Protein Total Protein Albumin Triglycerides Arterial Blood Glucose Arterial Blood Ionized Calcium Urine WBC (Auto) Coronavirus (PCR) SARS-CoV-2 IgG Ab 05/10/20 05/10/20 05/10/20 18:50 19:00 Unknown WBC RBC Hgb Hct MCV MCH MCHC RDW Lymph % (Auto) Lymph # (Auto) Seg Neutrophils % Seg Neuts % (Manual) Lymphocytes % (Manual) Nucleated RBC % Seg Neutrophils # Seg Neutrophils # Man Lymphocytes # (Manual) Monocytes # (Manual) D-Dimer > 49171 H ABG pH POC ABG pCO2 POC ABG pO2 ABG pO2 ABG HCO3 ABG O2 Saturation ABG Base Excess ABG Hemoglobin ABG Oxyhemoglobin ABG Sodium ABG Potassium ABG Chloride ABG Glucose Oxyhemoglobin Sodium Potassium Chloride Carbon Dioxide BUN Creatinine Glucose POC Glucose Lactic Acid Calcium Magnesium Ferritin Total Bilirubin Direct Bilirubin AST ALT Alkaline Phosphatase Lactate Dehydrogenase 1879 H C-Reactive Protein 24.80 H Total Protein Albumin Triglycerides Arterial Blood Glucose Arterial Blood Ionized Calcium Urine WBC (Auto) 11.0 H Coronavirus (PCR) SARS-CoV-2 IgG Ab 05/10/20 05/11/20 05/11/20 Unknown 07:30 07:30 WBC RBC Hgb Hct MCV MCH MCHC RDW Lymph % (Auto) Lymph # (Auto) Seg Neutrophils % Seg Neuts % (Manual) Lymphocytes % (Manual) Nucleated RBC % Seg Neutrophils # Seg Neutrophils # Man Lymphocytes # (Manual) Monocytes # (Manual) D-Dimer > 2000 H ABG pH POC ABG pCO2 POC ABG pO2 ABG pO2 ABG HCO3 ABG O2 Saturation ABG Base Excess ABG Hemoglobin ABG Oxyhemoglobin ABG Sodium ABG Potassium ABG Chloride ABG Glucose Oxyhemoglobin Sodium Potassium Chloride 96.3 L Carbon Dioxide BUN 36 H Creatinine Glucose 161 H POC Glucose Lactic Acid Calcium 8.3 L Magnesium Ferritin Total Bilirubin 1.50 H Direct Bilirubin 0.6 H AST 178 H ALT 111 H Alkaline Phosphatase Lactate Dehydrogenase C-Reactive Protein Total Protein Albumin 3.0 L Triglycerides Arterial Blood Glucose Arterial Blood Ionized Calcium Urine WBC (Auto) Coronavirus (PCR) Positive A SARS-CoV-2 IgG Ab 05/11/20 05/11/20 05/11/20 07:30 07:30 07:30 WBC RBC Hgb Hct MCV MCH MCHC RDW Lymph % (Auto) Lymph # (Auto) Seg Neutrophils % Seg Neuts % (Manual) Lymphocytes % (Manual) Nucleated RBC % Seg Neutrophils # Seg Neutrophils # Man Lymphocytes # (Manual) Monocytes # (Manual) D-Dimer ABG pH POC ABG pCO2 POC ABG pO2 ABG pO2 ABG HCO3 ABG O2 Saturation ABG Base Excess ABG Hemoglobin ABG Oxyhemoglobin ABG Sodium ABG Potassium ABG Chloride ABG Glucose Oxyhemoglobin Sodium Potassium Chloride Carbon Dioxide BUN Creatinine Glucose POC Glucose Lactic Acid Calcium Magnesium Ferritin 41111.0 H Total Bilirubin Direct Bilirubin AST ALT Alkaline Phosphatase Lactate Dehydrogenase 1523 H C-Reactive Protein 12.90 H Total Protein Albumin Triglycerides Arterial Blood Glucose Arterial Blood Ionized Calcium Urine WBC (Auto) Coronavirus (PCR) SARS-CoV-2 IgG Ab Reactive A 05/13/20 05/13/20 05/15/20 05:20 05:20 08:15 WBC RBC Hgb Hct MCV MCH MCHC RDW Lymph % (Auto) Lymph # (Auto) Seg Neutrophils % Seg Neuts % (Manual) Lymphocytes % (Manual) Nucleated RBC % Seg Neutrophils # Seg Neutrophils # Man Lymphocytes # (Manual) Monocytes # (Manual) D-Dimer > 78718 H 5318.28 H ABG pH POC ABG pCO2 POC ABG pO2 ABG pO2 ABG HCO3 ABG O2 Saturation ABG Base Excess ABG Hemoglobin ABG Oxyhemoglobin ABG Sodium ABG Potassium ABG Chloride ABG Glucose Oxyhemoglobin Sodium Potassium Chloride Carbon Dioxide 32 H BUN 30 H Creatinine Glucose 156 H POC Glucose Lactic Acid Calcium Magnesium 2.60 H Ferritin Total Bilirubin 1.40 H Direct Bilirubin AST 121 H ALT 119 H Alkaline Phosphatase Lactate Dehydrogenase 957 H C-Reactive Protein 4.00 H Total Protein Albumin 3.0 L Triglycerides Arterial Blood Glucose Arterial Blood Ionized Calcium Urine WBC (Auto) Coronavirus (PCR) SARS-CoV-2 IgG Ab 05/15/20 05/15/20 05/15/20 08:15 08:15 08:15 WBC 12.4 H RBC Hgb Hct MCV 98 H MCH 33 H MCHC RDW Lymph % (Auto) 9.7 L Lymph # (Auto) Seg Neutrophils % 86.8 H Seg Neuts % (Manual) Lymphocytes % (Manual) Nucleated RBC % Seg Neutrophils # 10.8 H Seg Neutrophils # Man Lymphocytes # (Manual) Monocytes # (Manual) D-Dimer ABG pH POC ABG pCO2 POC ABG pO2 ABG pO2 ABG HCO3 ABG O2 Saturation ABG Base Excess ABG Hemoglobin ABG Oxyhemoglobin ABG Sodium ABG Potassium ABG Chloride ABG Glucose Oxyhemoglobin Sodium Potassium Chloride 94.8 L Carbon Dioxide 32 H BUN 22 H Creatinine Glucose 115 H POC Glucose Lactic Acid Calcium 8.3 L Magnesium Ferritin 2494.0 H Total Bilirubin Direct Bilirubin AST 73 H ALT 121 H Alkaline Phosphatase Lactate Dehydrogenase 835 H C-Reactive Protein 3.40 H Total Protein 6.1 L Albumin 3.0 L Triglycerides Arterial Blood Glucose Arterial Blood Ionized Calcium Urine WBC (Auto) Coronavirus (PCR) SARS-CoV-2 IgG Ab 05/17/20 05/17/20 05/17/20 05:50 05:50 05:50 WBC RBC Hgb Hct MCV MCH MCHC RDW Lymph % (Auto) Lymph # (Auto) Seg Neutrophils % Seg Neuts % (Manual) Lymphocytes % (Manual) Nucleated RBC % Seg Neutrophils # Seg Neutrophils # Man Lymphocytes # (Manual) Monocytes # (Manual) D-Dimer 2911.42 H ABG pH POC ABG pCO2 POC ABG pO2 ABG pO2 ABG HCO3 ABG O2 Saturation ABG Base Excess ABG Hemoglobin ABG Oxyhemoglobin ABG Sodium ABG Potassium ABG Chloride ABG Glucose Oxyhemoglobin Sodium 136 L Potassium Chloride 96.0 L Carbon Dioxide 34 H BUN 22 H Creatinine Glucose 140 H POC Glucose Lactic Acid Calcium Magnesium Ferritin 2082.0 H Total Bilirubin Direct Bilirubin AST ALT 75 H Alkaline Phosphatase Lactate Dehydrogenase 601 H C-Reactive Protein 2.70 H Total Protein Albumin 2.9 L Triglycerides Arterial Blood Glucose Arterial Blood Ionized Calcium Urine WBC (Auto) Coronavirus (PCR) SARS-CoV-2 IgG Ab 05/17/20 05/18/20 05/20/20 05:50 12:22 08:16 WBC RBC Hgb Hct MCV 98 H MCH 33 H MCHC RDW Lymph % (Auto) 8.0 L Lymph # (Auto) 0.8 L Seg Neutrophils % 89.3 H Seg Neuts % (Manual) Lymphocytes % (Manual) Nucleated RBC % Seg Neutrophils # 8.8 H Seg Neutrophils # Man Lymphocytes # (Manual) Monocytes # (Manual) D-Dimer 1887.82 H ABG pH POC ABG pCO2 POC ABG pO2 ABG pO2 ABG HCO3 ABG O2 Saturation ABG Base Excess ABG Hemoglobin ABG Oxyhemoglobin ABG Sodium ABG Potassium ABG Chloride ABG Glucose Oxyhemoglobin Sodium Potassium Chloride Carbon Dioxide BUN Creatinine Glucose POC Glucose 178 H Lactic Acid Calcium Magnesium Ferritin Total Bilirubin Direct Bilirubin AST ALT Alkaline Phosphatase Lactate Dehydrogenase C-Reactive Protein Total Protein Albumin Triglycerides Arterial Blood Glucose Arterial Blood Ionized Calcium Urine WBC (Auto) Coronavirus (PCR) SARS-CoV-2 IgG Ab 05/20/20 05/20/20 05/21/20 08:16 08:16 21:10 WBC RBC Hgb Hct MCV MCH MCHC RDW Lymph % (Auto) Lymph # (Auto) Seg Neutrophils % Seg Neuts % (Manual) Lymphocytes % (Manual) Nucleated RBC % Seg Neutrophils # Seg Neutrophils # Man Lymphocytes # (Manual) Monocytes # (Manual) D-Dimer ABG pH 7.483 H POC ABG pCO2 POC ABG pO2 ABG pO2 50.0 L ABG HCO3 27.0 H ABG O2 Saturation 86.2 L ABG Base Excess 3.7 H ABG Hemoglobin ABG Oxyhemoglobin ABG Sodium ABG Potassium ABG Chloride ABG Glucose Oxyhemoglobin 84.2 L Sodium Potassium Chloride Carbon Dioxide BUN Creatinine Glucose POC Glucose Lactic Acid Calcium Magnesium Ferritin 1960.0 H Total Bilirubin Direct Bilirubin AST ALT Alkaline Phosphatase Lactate Dehydrogenase 705 H C-Reactive Protein 3.10 H Total Protein Albumin Triglycerides Arterial Blood Glucose Arterial Blood Ionized Calcium Urine WBC (Auto) Coronavirus (PCR) SARS-CoV-2 IgG Ab 05/22/20 05/22/20 05/22/20 04:01 07:53 07:53 WBC 19.2 H RBC Hgb Hct MCV 98 H MCH 34 H MCHC RDW Lymph % (Auto) Lymph # (Auto) Seg Neutrophils % Seg Neuts % (Manual) 96.0 H Lymphocytes % (Manual) 1.0 L Nucleated RBC % Seg Neutrophils # Seg Neutrophils # Man 18.4 H Lymphocytes # (Manual) 0.2 L Monocytes # (Manual) D-Dimer ABG pH POC ABG pCO2 53.8 H POC ABG pO2 125.5 H ABG pO2 ABG HCO3 ABG O2 Saturation ABG Base Excess ABG Hemoglobin ABG Oxyhemoglobin ABG Sodium 131.8 L ABG Potassium 4.8 H ABG Chloride 94.0 L ABG Glucose 163 H Oxyhemoglobin Sodium 131 L Potassium Chloride 93.4 L Carbon Dioxide BUN 40 H Creatinine Glucose 176 H POC Glucose Lactic Acid Calcium Magnesium 2.70 H Ferritin Total Bilirubin 1.80 H Direct Bilirubin AST 45 H ALT 116 H Alkaline Phosphatase 181 H Lactate Dehydrogenase C-Reactive Protein Total Protein Albumin 2.6 L Triglycerides Arterial Blood Glucose 163 H Arterial Blood Ionized Calcium 4.5 L Urine WBC (Auto) Coronavirus (PCR) SARS-CoV-2 IgG Ab 05/23/20 05/24/20 05/24/20 04:17 03:07 04:08 WBC RBC Hgb Hct MCV MCH MCHC RDW Lymph % (Auto) Lymph # (Auto) Seg Neutrophils % Seg Neuts % (Manual) Lymphocytes % (Manual) Nucleated RBC % Seg Neutrophils # Seg Neutrophils # Man Lymphocytes # (Manual) Monocytes # (Manual) D-Dimer ABG pH 7.328 L POC ABG pCO2 POC ABG pO2 ABG pO2 72.8 L 73.4 L ABG HCO3 31.0 H 34.0 H ABG O2 Saturation 93.5 L ABG Base Excess 3.5 H 7.7 H ABG Hemoglobin 13.3 L 12.1 L ABG Oxyhemoglobin ABG Sodium ABG Potassium ABG Chloride ABG Glucose Oxyhemoglobin 91.5 L 94.3 L Sodium Potassium Chloride Carbon Dioxide BUN Creatinine Glucose POC Glucose 155 H Lactic Acid Calcium Magnesium Ferritin Total Bilirubin Direct Bilirubin AST ALT Alkaline Phosphatase Lactate Dehydrogenase C-Reactive Protein Total Protein Albumin Triglycerides Arterial Blood Glucose Arterial Blood Ionized Calcium Urine WBC (Auto) Coronavirus (PCR) SARS-CoV-2 IgG Ab 05/24/20 05/24/20 05/24/20 09:33 12:21 17:52 WBC RBC Hgb Hct MCV MCH MCHC RDW Lymph % (Auto) Lymph # (Auto) Seg Neutrophils % Seg Neuts % (Manual) Lymphocytes % (Manual) Nucleated RBC % Seg Neutrophils # Seg Neutrophils # Man Lymphocytes # (Manual) Monocytes # (Manual) D-Dimer ABG pH POC ABG pCO2 POC ABG pO2 ABG pO2 ABG HCO3 ABG O2 Saturation ABG Base Excess ABG Hemoglobin ABG Oxyhemoglobin ABG Sodium ABG Potassium ABG Chloride ABG Glucose Oxyhemoglobin Sodium Potassium Chloride Carbon Dioxide 34 H D BUN 28 H Creatinine 0.7 L Glucose 168 H POC Glucose 173 H 164 H Lactic Acid Calcium Magnesium Ferritin Total Bilirubin Direct Bilirubin AST ALT Alkaline Phosphatase Lactate Dehydrogenase C-Reactive Protein Total Protein Albumin Triglycerides Arterial Blood Glucose Arterial Blood Ionized Calcium Urine WBC (Auto) Coronavirus (PCR) SARS-CoV-2 IgG Ab 05/24/20 05/25/20 05/25/20 23:47 04:29 05:46 WBC RBC Hgb Hct MCV MCH MCHC RDW Lymph % (Auto) Lymph # (Auto) Seg Neutrophils % Seg Neuts % (Manual) Lymphocytes % (Manual) Nucleated RBC % Seg Neutrophils # Seg Neutrophils # Man Lymphocytes # (Manual) Monocytes # (Manual) D-Dimer ABG pH POC ABG pCO2 68.6 H POC ABG pO2 ABG pO2 ABG HCO3 ABG O2 Saturation ABG Base Excess ABG Hemoglobin ABG Oxyhemoglobin ABG Sodium ABG Potassium 4.7 H ABG Chloride ABG Glucose 226 H Oxyhemoglobin Sodium Potassium Chloride Carbon Dioxide BUN Creatinine Glucose POC Glucose 171 H 201 H Lactic Acid Calcium Magnesium Ferritin Total Bilirubin Direct Bilirubin AST ALT Alkaline Phosphatase Lactate Dehydrogenase C-Reactive Protein Total Protein Albumin Triglycerides Arterial Blood Glucose 226 H Arterial Blood Ionized Calcium Urine WBC (Auto) Coronavirus (PCR) SARS-CoV-2 IgG Ab 05/25/20 05/25/20 05/25/20 08:37 08:37 12:38 WBC 12.0 H RBC 3.64 L Hgb Hct MCV 99 H MCH 33 H MCHC RDW Lymph % (Auto) Lymph # (Auto) Seg Neutrophils % Seg Neuts % (Manual) Lymphocytes % (Manual) Nucleated RBC % Seg Neutrophils # Seg Neutrophils # Man Lymphocytes # (Manual) Monocytes # (Manual) D-Dimer ABG pH POC ABG pCO2 POC ABG pO2 ABG pO2 ABG HCO3 ABG O2 Saturation ABG Base Excess ABG Hemoglobin ABG Oxyhemoglobin ABG Sodium ABG Potassium ABG Chloride ABG Glucose Oxyhemoglobin Sodium Potassium Chloride 97.3 L Carbon Dioxide 35 H BUN 25 H Creatinine 0.7 L Glucose 191 H POC Glucose 182 H Lactic Acid Calcium Magnesium Ferritin Total Bilirubin Direct Bilirubin AST ALT Alkaline Phosphatase Lactate Dehydrogenase C-Reactive Protein Total Protein Albumin Triglycerides Arterial Blood Glucose Arterial Blood Ionized Calcium Urine WBC (Auto) Coronavirus (PCR) SARS-CoV-2 IgG Ab 05/25/20 05/26/20 05/26/20 18:16 00:06 04:50 WBC RBC Hgb Hct MCV MCH MCHC RDW Lymph % (Auto) Lymph # (Auto) Seg Neutrophils % Seg Neuts % (Manual) Lymphocytes % (Manual) Nucleated RBC % Seg Neutrophils # Seg Neutrophils # Man Lymphocytes # (Manual) Monocytes # (Manual) D-Dimer ABG pH POC ABG pCO2 POC ABG pO2 ABG pO2 221.5 H ABG HCO3 40.4 H ABG O2 Saturation 99.3 H ABG Base Excess 12.8 H ABG Hemoglobin 10.4 L ABG Oxyhemoglobin ABG Sodium ABG Potassium ABG Chloride ABG Glucose Oxyhemoglobin Sodium Potassium Chloride Carbon Dioxide BUN Creatinine Glucose POC Glucose 176 H 152 H Lactic Acid Calcium Magnesium Ferritin Total Bilirubin Direct Bilirubin AST ALT Alkaline Phosphatase Lactate Dehydrogenase C-Reactive Protein Total Protein Albumin Triglycerides Arterial Blood Glucose Arterial Blood Ionized Calcium Urine WBC (Auto) Coronavirus (PCR) SARS-CoV-2 IgG Ab 05/26/20 05/26/20 05/26/20 06:11 07:51 07:51 WBC 13.4 H RBC 3.64 L Hgb Hct MCV 98 H MCH 33 H MCHC RDW Lymph % (Auto) Lymph # (Auto) Seg Neutrophils % Seg Neuts % (Manual) Lymphocytes % (Manual) Nucleated RBC % Seg Neutrophils # Seg Neutrophils # Man Lymphocytes # (Manual) Monocytes # (Manual) D-Dimer ABG pH POC ABG pCO2 POC ABG pO2 ABG pO2 ABG HCO3 ABG O2 Saturation ABG Base Excess ABG Hemoglobin ABG Oxyhemoglobin ABG Sodium ABG Potassium ABG Chloride ABG Glucose Oxyhemoglobin Sodium Potassium Chloride 96.6 L Carbon Dioxide 39 H BUN 29 H Creatinine 0.7 L Glucose 174 H POC Glucose 165 H Lactic Acid Calcium Magnesium Ferritin Total Bilirubin Direct Bilirubin AST ALT Alkaline Phosphatase Lactate Dehydrogenase C-Reactive Protein Total Protein Albumin Triglycerides Arterial Blood Glucose Arterial Blood Ionized Calcium Urine WBC (Auto) Coronavirus (PCR) SARS-CoV-2 IgG Ab 05/26/20 05/27/20 05/27/20 23:23 03:43 05:29 WBC RBC Hgb Hct MCV MCH MCHC RDW Lymph % (Auto) Lymph # (Auto) Seg Neutrophils % Seg Neuts % (Manual) Lymphocytes % (Manual) Nucleated RBC % Seg Neutrophils # Seg Neutrophils # Man Lymphocytes # (Manual) Monocytes # (Manual) D-Dimer ABG pH 7.480 H POC ABG pCO2 52.4 H POC ABG pO2 61.4 L ABG pO2 ABG HCO3 ABG O2 Saturation ABG Base Excess ABG Hemoglobin ABG Oxyhemoglobin ABG Sodium 134.9 L ABG Potassium ABG Chloride 95.0 L ABG Glucose 221 H Oxyhemoglobin Sodium Potassium Chloride Carbon Dioxide BUN Creatinine Glucose POC Glucose 169 H 227 H Lactic Acid Calcium Magnesium Ferritin Total Bilirubin Direct Bilirubin AST ALT Alkaline Phosphatase Lactate Dehydrogenase C-Reactive Protein Total Protein Albumin Triglycerides Arterial Blood Glucose 221 H Arterial Blood Ionized Calcium 4.5 L Urine WBC (Auto) Coronavirus (PCR) SARS-CoV-2 IgG Ab 05/27/20 05/27/20 05/27/20 07:19 12:18 13:50 WBC RBC Hgb Hct MCV MCH MCHC RDW Lymph % (Auto) Lymph # (Auto) Seg Neutrophils % Seg Neuts % (Manual) Lymphocytes % (Manual) Nucleated RBC % Seg Neutrophils # Seg Neutrophils # Man Lymphocytes # (Manual) Monocytes # (Manual) D-Dimer ABG pH POC ABG pCO2 POC ABG pO2 ABG pO2 ABG HCO3 ABG O2 Saturation ABG Base Excess ABG Hemoglobin ABG Oxyhemoglobin ABG Sodium ABG Potassium ABG Chloride ABG Glucose Oxyhemoglobin Sodium Potassium Chloride Carbon Dioxide BUN Creatinine Glucose POC Glucose 114 H 148 H Lactic Acid Calcium Magnesium Ferritin Total Bilirubin Direct Bilirubin AST ALT Alkaline Phosphatase Lactate Dehydrogenase C-Reactive Protein Total Protein Albumin Triglycerides 247 H Arterial Blood Glucose Arterial Blood Ionized Calcium Urine WBC (Auto) Coronavirus (PCR) SARS-CoV-2 IgG Ab 05/28/20 05/28/20 05/28/20 00:13 04:16 05:22 WBC RBC Hgb Hct MCV MCH MCHC RDW Lymph % (Auto) Lymph # (Auto) Seg Neutrophils % Seg Neuts % (Manual) Lymphocytes % (Manual) Nucleated RBC % Seg Neutrophils # Seg Neutrophils # Man Lymphocytes # (Manual) Monocytes # (Manual) D-Dimer ABG pH POC ABG pCO2 64.4 H POC ABG pO2 60.5 L ABG pO2 ABG HCO3 ABG O2 Saturation ABG Base Excess ABG Hemoglobin ABG Oxyhemoglobin ABG Sodium ABG Potassium ABG Chloride 95.0 L ABG Glucose 209 H Oxyhemoglobin Sodium Potassium Chloride Carbon Dioxide BUN Creatinine Glucose POC Glucose 155 H 186 H Lactic Acid Calcium Magnesium Ferritin Total Bilirubin Direct Bilirubin AST ALT Alkaline Phosphatase Lactate Dehydrogenase C-Reactive Protein Total Protein Albumin Triglycerides Arterial Blood Glucose 209 H Arterial Blood Ionized Calcium Urine WBC (Auto) Coronavirus (PCR) SARS-CoV-2 IgG Ab 05/28/20 05/28/20 05/29/20 12:45 17:39 00:37 WBC RBC Hgb Hct MCV MCH MCHC RDW Lymph % (Auto) Lymph # (Auto) Seg Neutrophils % Seg Neuts % (Manual) Lymphocytes % (Manual) Nucleated RBC % Seg Neutrophils # Seg Neutrophils # Man Lymphocytes # (Manual) Monocytes # (Manual) D-Dimer ABG pH POC ABG pCO2 POC ABG pO2 ABG pO2 ABG HCO3 ABG O2 Saturation ABG Base Excess ABG Hemoglobin ABG Oxyhemoglobin ABG Sodium ABG Potassium ABG Chloride ABG Glucose Oxyhemoglobin Sodium Potassium Chloride Carbon Dioxide BUN Creatinine Glucose POC Glucose 143 H 164 H 221 H Lactic Acid Calcium Magnesium Ferritin Total Bilirubin Direct Bilirubin AST ALT Alkaline Phosphatase Lactate Dehydrogenase C-Reactive Protein Total Protein Albumin Triglycerides Arterial Blood Glucose Arterial Blood Ionized Calcium Urine WBC (Auto) Coronavirus (PCR) SARS-CoV-2 IgG Ab 05/29/20 05/29/20 05/29/20 04:15 05:33 12:34 WBC RBC Hgb Hct MCV MCH MCHC RDW Lymph % (Auto) Lymph # (Auto) Seg Neutrophils % Seg Neuts % (Manual) Lymphocytes % (Manual) Nucleated RBC % Seg Neutrophils # Seg Neutrophils # Man Lymphocytes # (Manual) Monocytes # (Manual) D-Dimer ABG pH 7.463 H POC ABG pCO2 56.3 H POC ABG pO2 81.2 L ABG pO2 ABG HCO3 ABG O2 Saturation ABG Base Excess ABG Hemoglobin ABG Oxyhemoglobin ABG Sodium ABG Potassium ABG Chloride 96.0 L ABG Glucose 194 H Oxyhemoglobin Sodium Potassium Chloride Carbon Dioxide BUN Creatinine Glucose POC Glucose 133 H 221 H Lactic Acid Calcium Magnesium Ferritin Total Bilirubin Direct Bilirubin AST ALT Alkaline Phosphatase Lactate Dehydrogenase C-Reactive Protein Total Protein Albumin Triglycerides Arterial Blood Glucose 194 H Arterial Blood Ionized Calcium 4.5 L Urine WBC (Auto) Coronavirus (PCR) SARS-CoV-2 IgG Ab 05/29/20 05/30/20 05/30/20 18:07 00:12 05:38 WBC RBC Hgb Hct MCV MCH MCHC RDW Lymph % (Auto) Lymph # (Auto) Seg Neutrophils % Seg Neuts % (Manual) Lymphocytes % (Manual) Nucleated RBC % Seg Neutrophils # Seg Neutrophils # Man Lymphocytes # (Manual) Monocytes # (Manual) D-Dimer ABG pH POC ABG pCO2 POC ABG pO2 ABG pO2 ABG HCO3 ABG O2 Saturation ABG Base Excess ABG Hemoglobin ABG Oxyhemoglobin ABG Sodium ABG Potassium ABG Chloride ABG Glucose Oxyhemoglobin Sodium Potassium Chloride Carbon Dioxide BUN Creatinine Glucose POC Glucose 162 H 190 H 208 H Lactic Acid Calcium Magnesium Ferritin Total Bilirubin Direct Bilirubin AST ALT Alkaline Phosphatase Lactate Dehydrogenase C-Reactive Protein Total Protein Albumin Triglycerides Arterial Blood Glucose Arterial Blood Ionized Calcium Urine WBC (Auto) Coronavirus (PCR) SARS-CoV-2 IgG Ab 05/30/20 05/30/20 05/30/20 09:30 11:35 11:54 WBC 12.4 H RBC 3.48 L Hgb 11.3 L Hct 34.6 L MCV 99 H MCH 33 H MCHC RDW Lymph % (Auto) Lymph # (Auto) Seg Neutrophils % Seg Neuts % (Manual) Lymphocytes % (Manual) Nucleated RBC % Seg Neutrophils # Seg Neutrophils # Man Lymphocytes # (Manual) Monocytes # (Manual) D-Dimer ABG pH 7.455 H POC ABG pCO2 57.5 H POC ABG pO2 81.5 L ABG pO2 ABG HCO3 ABG O2 Saturation ABG Base Excess ABG Hemoglobin ABG Oxyhemoglobin ABG Sodium ABG Potassium ABG Chloride 96.0 L ABG Glucose 204 H Oxyhemoglobin Sodium Potassium Chloride Carbon Dioxide BUN Creatinine Glucose POC Glucose 183 H Lactic Acid Calcium Magnesium Ferritin Total Bilirubin Direct Bilirubin AST ALT Alkaline Phosphatase Lactate Dehydrogenase C-Reactive Protein Total Protein Albumin Triglycerides Arterial Blood Glucose 204 H Arterial Blood Ionized Calcium Urine WBC (Auto) Coronavirus (PCR) SARS-CoV-2 IgG Ab 05/30/20 05/31/20 05/31/20 18:01 00:10 03:22 WBC RBC Hgb Hct MCV MCH MCHC RDW Lymph % (Auto) Lymph # (Auto) Seg Neutrophils % Seg Neuts % (Manual) Lymphocytes % (Manual) Nucleated RBC % Seg Neutrophils # Seg Neutrophils # Man Lymphocytes # (Manual) Monocytes # (Manual) D-Dimer ABG pH POC ABG pCO2 60.4 H POC ABG pO2 71.5 L ABG pO2 ABG HCO3 ABG O2 Saturation ABG Base Excess ABG Hemoglobin ABG Oxyhemoglobin ABG Sodium ABG Potassium ABG Chloride 96.0 L ABG Glucose 169 H Oxyhemoglobin Sodium Potassium Chloride Carbon Dioxide BUN Creatinine Glucose POC Glucose 184 H 135 H Lactic Acid Calcium Magnesium Ferritin Total Bilirubin Direct Bilirubin AST ALT Alkaline Phosphatase Lactate Dehydrogenase C-Reactive Protein Total Protein Albumin Triglycerides Arterial Blood Glucose 169 H Arterial Blood Ionized Calcium 4.5 L Urine WBC (Auto) Coronavirus (PCR) SARS-CoV-2 IgG Ab 05/31/20 05/31/20 05/31/20 05:24 11:18 14:41 WBC RBC Hgb Hct MCV MCH MCHC RDW Lymph % (Auto) Lymph # (Auto) Seg Neutrophils % Seg Neuts % (Manual) Lymphocytes % (Manual) Nucleated RBC % Seg Neutrophils # Seg Neutrophils # Man Lymphocytes # (Manual) Monocytes # (Manual) D-Dimer ABG pH POC ABG pCO2 POC ABG pO2 ABG pO2 ABG HCO3 ABG O2 Saturation ABG Base Excess ABG Hemoglobin ABG Oxyhemoglobin ABG Sodium ABG Potassium ABG Chloride ABG Glucose Oxyhemoglobin Sodium Potassium Chloride 96.8 L Carbon Dioxide 37 H BUN 31 H Creatinine 0.6 L Glucose 213 H POC Glucose 164 H 208 H Lactic Acid Calcium Magnesium Ferritin Total Bilirubin Direct Bilirubin AST ALT Alkaline Phosphatase Lactate Dehydrogenase C-Reactive Protein Total Protein Albumin Triglycerides Arterial Blood Glucose Arterial Blood Ionized Calcium Urine WBC (Auto) Coronavirus (PCR) SARS-CoV-2 IgG Ab 05/31/20 05/31/20 06/01/20 17:37 23:47 03:48 WBC RBC Hgb Hct MCV MCH MCHC RDW Lymph % (Auto) Lymph # (Auto) Seg Neutrophils % Seg Neuts % (Manual) Lymphocytes % (Manual) Nucleated RBC % Seg Neutrophils # Seg Neutrophils # Man Lymphocytes # (Manual) Monocytes # (Manual) D-Dimer ABG pH POC ABG pCO2 59.7 H POC ABG pO2 73.9 L ABG pO2 ABG HCO3 ABG O2 Saturation ABG Base Excess ABG Hemoglobin ABG Oxyhemoglobin ABG Sodium ABG Potassium ABG Chloride 95.0 L ABG Glucose 256 H Oxyhemoglobin Sodium Potassium Chloride Carbon Dioxide BUN Creatinine Glucose POC Glucose 168 H 178 H Lactic Acid Calcium Magnesium Ferritin Total Bilirubin Direct Bilirubin AST ALT Alkaline Phosphatase Lactate Dehydrogenase C-Reactive Protein Total Protein Albumin Triglycerides Arterial Blood Glucose 256 H Arterial Blood Ionized Calcium Urine WBC (Auto) Coronavirus (PCR) SARS-CoV-2 IgG Ab 06/01/20 06/01/20 06/01/20 05:01 07:47 07:47 WBC 14.4 H RBC 3.46 L Hgb 11.1 L Hct 34.3 L MCV 99 H MCH MCHC RDW Lymph % (Auto) Lymph # (Auto) Seg Neutrophils % Seg Neuts % (Manual) 86.0 H Lymphocytes % (Manual) 9.0 L Nucleated RBC % Seg Neutrophils # Seg Neutrophils # Man 12.4 H Lymphocytes # (Manual) Monocytes # (Manual) D-Dimer ABG pH POC ABG pCO2 POC ABG pO2 ABG pO2 ABG HCO3 ABG O2 Saturation ABG Base Excess ABG Hemoglobin ABG Oxyhemoglobin ABG Sodium ABG Potassium ABG Chloride ABG Glucose Oxyhemoglobin Sodium Potassium Chloride Carbon Dioxide BUN Creatinine Glucose POC Glucose 197 H Lactic Acid Calcium Magnesium Ferritin Total Bilirubin Direct Bilirubin AST ALT Alkaline Phosphatase Lactate Dehydrogenase C-Reactive Protein Total Protein Albumin Triglycerides 244 H Arterial Blood Glucose Arterial Blood Ionized Calcium Urine WBC (Auto) Coronavirus (PCR) SARS-CoV-2 IgG Ab 06/01/20 06/01/20 06/01/20 07:47 11:46 18:15 WBC RBC Hgb Hct MCV MCH MCHC RDW Lymph % (Auto) Lymph # (Auto) Seg Neutrophils % Seg Neuts % (Manual) Lymphocytes % (Manual) Nucleated RBC % Seg Neutrophils # Seg Neutrophils # Man Lymphocytes # (Manual) Monocytes # (Manual) D-Dimer ABG pH POC ABG pCO2 POC ABG pO2 ABG pO2 ABG HCO3 ABG O2 Saturation ABG Base Excess ABG Hemoglobin ABG Oxyhemoglobin ABG Sodium ABG Potassium ABG Chloride ABG Glucose Oxyhemoglobin Sodium Potassium Chloride 95.4 L Carbon Dioxide 35 H BUN 30 H Creatinine 0.5 L Glucose 214 H POC Glucose 181 H 221 H Lactic Acid Calcium Magnesium Ferritin Total Bilirubin Direct Bilirubin AST 54 H ALT 235 H Alkaline Phosphatase Lactate Dehydrogenase C-Reactive Protein Total Protein Albumin 2.9 L Triglycerides Arterial Blood Glucose Arterial Blood Ionized Calcium Urine WBC (Auto) Coronavirus (PCR) SARS-CoV-2 IgG Ab 06/01/20 06/02/20 06/02/20 23:12 04:00 05:31 WBC RBC Hgb Hct MCV MCH MCHC RDW Lymph % (Auto) Lymph # (Auto) Seg Neutrophils % Seg Neuts % (Manual) Lymphocytes % (Manual) Nucleated RBC % Seg Neutrophils # Seg Neutrophils # Man Lymphocytes # (Manual) Monocytes # (Manual) D-Dimer ABG pH 7.465 H POC ABG pCO2 POC ABG pO2 ABG pO2 203.4 H ABG HCO3 41.2 H ABG O2 Saturation 99.3 H ABG Base Excess 15.1 H ABG Hemoglobin 11.5 L ABG Oxyhemoglobin ABG Sodium ABG Potassium ABG Chloride ABG Glucose Oxyhemoglobin Sodium Potassium Chloride Carbon Dioxide BUN Creatinine Glucose POC Glucose 197 H 184 H Lactic Acid Calcium Magnesium Ferritin Total Bilirubin Direct Bilirubin AST ALT Alkaline Phosphatase Lactate Dehydrogenase C-Reactive Protein Total Protein Albumin Triglycerides Arterial Blood Glucose Arterial Blood Ionized Calcium Urine WBC (Auto) Coronavirus (PCR) SARS-CoV-2 IgG Ab 06/02/20 06/02/20 06/02/20 11:49 18:06 23:00 WBC RBC Hgb Hct MCV MCH MCHC RDW Lymph % (Auto) Lymph # (Auto) Seg Neutrophils % Seg Neuts % (Manual) Lymphocytes % (Manual) Nucleated RBC % Seg Neutrophils # Seg Neutrophils # Man Lymphocytes # (Manual) Monocytes # (Manual) D-Dimer ABG pH POC ABG pCO2 POC ABG pO2 ABG pO2 ABG HCO3 ABG O2 Saturation ABG Base Excess ABG Hemoglobin ABG Oxyhemoglobin ABG Sodium ABG Potassium ABG Chloride ABG Glucose Oxyhemoglobin Sodium Potassium Chloride Carbon Dioxide BUN Creatinine Glucose POC Glucose 195 H 177 H 228 H Lactic Acid Calcium Magnesium Ferritin Total Bilirubin Direct Bilirubin AST ALT Alkaline Phosphatase Lactate Dehydrogenase C-Reactive Protein Total Protein Albumin Triglycerides Arterial Blood Glucose Arterial Blood Ionized Calcium Urine WBC (Auto) Coronavirus (PCR) SARS-CoV-2 IgG Ab 06/03/20 06/03/20 06/03/20 03:58 05:19 12:21 WBC RBC Hgb Hct MCV MCH MCHC RDW Lymph % (Auto) Lymph # (Auto) Seg Neutrophils % Seg Neuts % (Manual) Lymphocytes % (Manual) Nucleated RBC % Seg Neutrophils # Seg Neutrophils # Man Lymphocytes # (Manual) Monocytes # (Manual) D-Dimer ABG pH POC ABG pCO2 POC ABG pO2 ABG pO2 171.0 H ABG HCO3 42.8 H ABG O2 Saturation ABG Base Excess 15.6 H ABG Hemoglobin 12.3 L ABG Oxyhemoglobin ABG Sodium ABG Potassium ABG Chloride ABG Glucose Oxyhemoglobin Sodium Potassium Chloride Carbon Dioxide BUN Creatinine Glucose POC Glucose 122 H 207 H Lactic Acid Calcium Magnesium Ferritin Total Bilirubin Direct Bilirubin AST ALT Alkaline Phosphatase Lactate Dehydrogenase C-Reactive Protein Total Protein Albumin Triglycerides Arterial Blood Glucose Arterial Blood Ionized Calcium Urine WBC (Auto) Coronavirus (PCR) SARS-CoV-2 IgG Ab 06/03/20 06/03/20 06/04/20 17:27 23:50 03:55 WBC RBC Hgb Hct MCV MCH MCHC RDW Lymph % (Auto) Lymph # (Auto) Seg Neutrophils % Seg Neuts % (Manual) Lymphocytes % (Manual) Nucleated RBC % Seg Neutrophils # Seg Neutrophils # Man Lymphocytes # (Manual) Monocytes # (Manual) D-Dimer ABG pH POC ABG pCO2 POC ABG pO2 ABG pO2 117.2 H ABG HCO3 42.4 H ABG O2 Saturation ABG Base Excess 15.3 H ABG Hemoglobin 10.5 L ABG Oxyhemoglobin ABG Sodium ABG Potassium ABG Chloride ABG Glucose Oxyhemoglobin Sodium Potassium Chloride Carbon Dioxide BUN Creatinine Glucose POC Glucose 157 H 214 H Lactic Acid Calcium Magnesium Ferritin Total Bilirubin Direct Bilirubin AST ALT Alkaline Phosphatase Lactate Dehydrogenase C-Reactive Protein Total Protein Albumin Triglycerides Arterial Blood Glucose Arterial Blood Ionized Calcium Urine WBC (Auto) Coronavirus (PCR) SARS-CoV-2 IgG Ab 06/04/20 06/04/20 06/04/20 05:49 11:41 17:30 WBC RBC Hgb Hct MCV MCH MCHC RDW Lymph % (Auto) Lymph # (Auto) Seg Neutrophils % Seg Neuts % (Manual) Lymphocytes % (Manual) Nucleated RBC % Seg Neutrophils # Seg Neutrophils # Man Lymphocytes # (Manual) Monocytes # (Manual) D-Dimer ABG pH POC ABG pCO2 POC ABG pO2 ABG pO2 ABG HCO3 ABG O2 Saturation ABG Base Excess ABG Hemoglobin ABG Oxyhemoglobin ABG Sodium ABG Potassium ABG Chloride ABG Glucose Oxyhemoglobin Sodium Potassium Chloride Carbon Dioxide BUN Creatinine Glucose POC Glucose 149 H 233 H 156 H Lactic Acid Calcium Magnesium Ferritin Total Bilirubin Direct Bilirubin AST ALT Alkaline Phosphatase Lactate Dehydrogenase C-Reactive Protein Total Protein Albumin Triglycerides Arterial Blood Glucose Arterial Blood Ionized Calcium Urine WBC (Auto) Coronavirus (PCR) SARS-CoV-2 IgG Ab 06/04/20 06/04/20 06/04/20 19:01 20:53 23:41 WBC RBC 3.18 L Hgb 10.8 L Hct 31.8 L MCV 100 H MCH 34 H MCHC RDW Lymph % (Auto) Lymph # (Auto) Seg Neutrophils % Seg Neuts % (Manual) 86.0 H Lymphocytes % (Manual) 10.0 L Nucleated RBC % 1.0 H Seg Neutrophils # Seg Neutrophils # Man 8.5 H Lymphocytes # (Manual) 1.0 L Monocytes # (Manual) D-Dimer ABG pH POC ABG pCO2 POC ABG pO2 ABG pO2 ABG HCO3 ABG O2 Saturation ABG Base Excess ABG Hemoglobin ABG Oxyhemoglobin ABG Sodium ABG Potassium ABG Chloride ABG Glucose Oxyhemoglobin Sodium Potassium 3.4 L D Chloride 96.5 L Carbon Dioxide 41 H* BUN 27 H Creatinine 0.5 L Glucose 173 H POC Glucose 217 H Lactic Acid Calcium Magnesium Ferritin Total Bilirubin Direct Bilirubin AST ALT Alkaline Phosphatase Lactate Dehydrogenase C-Reactive Protein Total Protein Albumin Triglycerides Arterial Blood Glucose Arterial Blood Ionized Calcium Urine WBC (Auto) Coronavirus (PCR) SARS-CoV-2 IgG Ab 06/05/20 06/05/20 06/05/20 06:05 11:54 12:35 WBC RBC Hgb Hct MCV MCH MCHC RDW Lymph % (Auto) Lymph # (Auto) Seg Neutrophils % Seg Neuts % (Manual) Lymphocytes % (Manual) Nucleated RBC % Seg Neutrophils # Seg Neutrophils # Man Lymphocytes # (Manual) Monocytes # (Manual) D-Dimer ABG pH POC ABG pCO2 POC ABG pO2 ABG pO2 127.9 H ABG HCO3 41.1 H ABG O2 Saturation ABG Base Excess 13.0 H ABG Hemoglobin 13.4 L ABG Oxyhemoglobin ABG Sodium ABG Potassium ABG Chloride ABG Glucose Oxyhemoglobin Sodium Potassium Chloride Carbon Dioxide BUN Creatinine Glucose POC Glucose 137 H 211 H Lactic Acid Calcium Magnesium Ferritin Total Bilirubin Direct Bilirubin AST ALT Alkaline Phosphatase Lactate Dehydrogenase C-Reactive Protein Total Protein Albumin Triglycerides Arterial Blood Glucose Arterial Blood Ionized Calcium Urine WBC (Auto) Coronavirus (PCR) SARS-CoV-2 IgG Ab 06/05/20 06/05/20 06/06/20 17:03 23:49 04:42 WBC RBC Hgb Hct MCV MCH MCHC RDW Lymph % (Auto) Lymph # (Auto) Seg Neutrophils % Seg Neuts % (Manual) Lymphocytes % (Manual) Nucleated RBC % Seg Neutrophils # Seg Neutrophils # Man Lymphocytes # (Manual) Monocytes # (Manual) D-Dimer ABG pH POC ABG pCO2 56.1 H POC ABG pO2 52.5 L ABG pO2 ABG HCO3 ABG O2 Saturation ABG Base Excess ABG Hemoglobin 11.7 L ABG Oxyhemoglobin ABG Sodium ABG Potassium 3.3 L ABG Chloride 95.0 L ABG Glucose 156 H Oxyhemoglobin Sodium Potassium Chloride Carbon Dioxide BUN Creatinine Glucose POC Glucose 159 H 194 H Lactic Acid Calcium Magnesium Ferritin Total Bilirubin Direct Bilirubin AST ALT Alkaline Phosphatase Lactate Dehydrogenase C-Reactive Protein Total Protein Albumin Triglycerides Arterial Blood Glucose 156 H Arterial Blood Ionized Calcium Urine WBC (Auto) Coronavirus (PCR) SARS-CoV-2 IgG Ab 06/06/20 06/06/20 06/06/20 05:57 12:06 17:38 WBC RBC Hgb Hct MCV MCH MCHC RDW Lymph % (Auto) Lymph # (Auto) Seg Neutrophils % Seg Neuts % (Manual) Lymphocytes % (Manual) Nucleated RBC % Seg Neutrophils # Seg Neutrophils # Man Lymphocytes # (Manual) Monocytes # (Manual) D-Dimer ABG pH POC ABG pCO2 POC ABG pO2 ABG pO2 ABG HCO3 ABG O2 Saturation ABG Base Excess ABG Hemoglobin ABG Oxyhemoglobin ABG Sodium ABG Potassium ABG Chloride ABG Glucose Oxyhemoglobin Sodium Potassium Chloride Carbon Dioxide BUN Creatinine Glucose POC Glucose 144 H 230 H 162 H Lactic Acid Calcium Magnesium Ferritin Total Bilirubin Direct Bilirubin AST ALT Alkaline Phosphatase Lactate Dehydrogenase C-Reactive Protein Total Protein Albumin Triglycerides Arterial Blood Glucose Arterial Blood Ionized Calcium Urine WBC (Auto) Coronavirus (PCR) SARS-CoV-2 IgG Ab 06/06/20 06/07/20 06/07/20 23:50 04:34 06:03 WBC RBC Hgb Hct MCV MCH MCHC RDW Lymph % (Auto) Lymph # (Auto) Seg Neutrophils % Seg Neuts % (Manual) Lymphocytes % (Manual) Nucleated RBC % Seg Neutrophils # Seg Neutrophils # Man Lymphocytes # (Manual) Monocytes # (Manual) D-Dimer ABG pH 7.511 H POC ABG pCO2 53.5 H POC ABG pO2 114.5 H ABG pO2 ABG HCO3 ABG O2 Saturation ABG Base Excess ABG Hemoglobin 9.4 L ABG Oxyhemoglobin ABG Sodium 134.5 L ABG Potassium ABG Chloride 94.0 L ABG Glucose 186 H Oxyhemoglobin Sodium Potassium Chloride Carbon Dioxide BUN Creatinine Glucose POC Glucose 181 H 155 H Lactic Acid Calcium Magnesium Ferritin Total Bilirubin Direct Bilirubin AST ALT Alkaline Phosphatase Lactate Dehydrogenase C-Reactive Protein Total Protein Albumin Triglycerides Arterial Blood Glucose 186 H Arterial Blood Ionized Calcium 4.5 L Urine WBC (Auto) Coronavirus (PCR) SARS-CoV-2 IgG Ab 06/07/20 06/07/20 06/07/20 13:41 14:58 14:58 WBC RBC 2.72 L Hgb 9.3 L Hct 27.2 L MCV 100 H MCH 34 H MCHC RDW Lymph % (Auto) Lymph # (Auto) Seg Neutrophils % Seg Neuts % (Manual) Lymphocytes % (Manual) Nucleated RBC % Seg Neutrophils # Seg Neutrophils # Man Lymphocytes # (Manual) Monocytes # (Manual) D-Dimer ABG pH POC ABG pCO2 POC ABG pO2 ABG pO2 ABG HCO3 ABG O2 Saturation ABG Base Excess ABG Hemoglobin ABG Oxyhemoglobin ABG Sodium ABG Potassium ABG Chloride ABG Glucose Oxyhemoglobin Sodium Potassium Chloride 93.5 L Carbon Dioxide 39 H BUN 22 H Creatinine 0.4 L Glucose 188 H POC Glucose 201 H Lactic Acid Calcium Magnesium Ferritin Total Bilirubin Direct Bilirubin AST 61 H ALT 273 H Alkaline Phosphatase Lactate Dehydrogenase C-Reactive Protein Total Protein 5.9 L Albumin 2.7 L Triglycerides Arterial Blood Glucose Arterial Blood Ionized Calcium Urine WBC (Auto) Coronavirus (PCR) SARS-CoV-2 IgG Ab 06/07/20 06/08/20 06/08/20 23:18 05:31 12:07 WBC RBC Hgb Hct MCV MCH MCHC RDW Lymph % (Auto) Lymph # (Auto) Seg Neutrophils % Seg Neuts % (Manual) Lymphocytes % (Manual) Nucleated RBC % Seg Neutrophils # Seg Neutrophils # Man Lymphocytes # (Manual) Monocytes # (Manual) D-Dimer ABG pH POC ABG pCO2 POC ABG pO2 ABG pO2 ABG HCO3 ABG O2 Saturation ABG Base Excess ABG Hemoglobin ABG Oxyhemoglobin ABG Sodium ABG Potassium ABG Chloride ABG Glucose Oxyhemoglobin Sodium Potassium Chloride Carbon Dioxide BUN Creatinine Glucose POC Glucose 214 H 129 H 179 H Lactic Acid Calcium Magnesium Ferritin Total Bilirubin Direct Bilirubin AST ALT Alkaline Phosphatase Lactate Dehydrogenase C-Reactive Protein Total Protein Albumin Triglycerides Arterial Blood Glucose Arterial Blood Ionized Calcium Urine WBC (Auto) Coronavirus (PCR) SARS-CoV-2 IgG Ab 06/08/20 06/08/20 06/09/20 18:18 23:35 05:42 WBC RBC Hgb Hct MCV MCH MCHC RDW Lymph % (Auto) Lymph # (Auto) Seg Neutrophils % Seg Neuts % (Manual) Lymphocytes % (Manual) Nucleated RBC % Seg Neutrophils # Seg Neutrophils # Man Lymphocytes # (Manual) Monocytes # (Manual) D-Dimer ABG pH POC ABG pCO2 POC ABG pO2 ABG pO2 ABG HCO3 ABG O2 Saturation ABG Base Excess ABG Hemoglobin ABG Oxyhemoglobin ABG Sodium ABG Potassium ABG Chloride ABG Glucose Oxyhemoglobin Sodium Potassium Chloride Carbon Dioxide BUN Creatinine Glucose POC Glucose 172 H 177 H 137 H Lactic Acid Calcium Magnesium Ferritin Total Bilirubin Direct Bilirubin AST ALT Alkaline Phosphatase Lactate Dehydrogenase C-Reactive Protein Total Protein Albumin Triglycerides Arterial Blood Glucose Arterial Blood Ionized Calcium Urine WBC (Auto) Coronavirus (PCR) SARS-CoV-2 IgG Ab 06/09/20 06/09/20 06/09/20 06:20 07:55 07:55 WBC 12.4 H RBC 3.26 L Hgb 11.1 L Hct 33.4 L D MCV 102 H MCH 34 H MCHC RDW Lymph % (Auto) Lymph # (Auto) Seg Neutrophils % Seg Neuts % (Manual) Lymphocytes % (Manual) Nucleated RBC % Seg Neutrophils # Seg Neutrophils # Man Lymphocytes # (Manual) Monocytes # (Manual) D-Dimer ABG pH 7.466 H POC ABG pCO2 50.7 H POC ABG pO2 53.0 L ABG pO2 ABG HCO3 ABG O2 Saturation ABG Base Excess ABG Hemoglobin ABG Oxyhemoglobin ABG Sodium ABG Potassium 2.9 L ABG Chloride 93.0 L ABG Glucose 138 H Oxyhemoglobin Sodium Potassium 3.0 L Chloride 92.3 L Carbon Dioxide 37 H BUN 21 H Creatinine 0.6 L Glucose 120 H POC Glucose Lactic Acid Calcium Magnesium Ferritin Total Bilirubin Direct Bilirubin AST ALT Alkaline Phosphatase Lactate Dehydrogenase C-Reactive Protein Total Protein Albumin Triglycerides Arterial Blood Glucose 138 H Arterial Blood Ionized Calcium 4.5 L Urine WBC (Auto) Coronavirus (PCR) SARS-CoV-2 IgG Ab 06/09/20 06/09/20 06/10/20 11:22 18:32 04:46 WBC RBC Hgb Hct MCV MCH MCHC RDW Lymph % (Auto) Lymph # (Auto) Seg Neutrophils % Seg Neuts % (Manual) Lymphocytes % (Manual) Nucleated RBC % Seg Neutrophils # Seg Neutrophils # Man Lymphocytes # (Manual) Monocytes # (Manual) D-Dimer ABG pH 7.501 H POC ABG pCO2 POC ABG pO2 126.5 H ABG pO2 ABG HCO3 ABG O2 Saturation ABG Base Excess ABG Hemoglobin 10.3 L ABG Oxyhemoglobin ABG Sodium ABG Potassium ABG Chloride ABG Glucose 220 H Oxyhemoglobin Sodium Potassium Chloride Carbon Dioxide BUN Creatinine Glucose POC Glucose 117 H 121 H Lactic Acid Calcium Magnesium Ferritin Total Bilirubin Direct Bilirubin AST ALT Alkaline Phosphatase Lactate Dehydrogenase C-Reactive Protein Total Protein Albumin Triglycerides Arterial Blood Glucose 220 H Arterial Blood Ionized Calcium Urine WBC (Auto) Coronavirus (PCR) SARS-CoV-2 IgG Ab 06/10/20 06/10/20 06/10/20 05:30 09:38 12:03 WBC RBC Hgb Hct MCV MCH MCHC RDW Lymph % (Auto) Lymph # (Auto) Seg Neutrophils % Seg Neuts % (Manual) Lymphocytes % (Manual) Nucleated RBC % Seg Neutrophils # Seg Neutrophils # Man Lymphocytes # (Manual) Monocytes # (Manual) D-Dimer ABG pH POC ABG pCO2 POC ABG pO2 ABG pO2 ABG HCO3 ABG O2 Saturation ABG Base Excess ABG Hemoglobin ABG Oxyhemoglobin ABG Sodium ABG Potassium ABG Chloride ABG Glucose Oxyhemoglobin Sodium Potassium Chloride Carbon Dioxide BUN Creatinine Glucose POC Glucose 181 H 204 H Lactic Acid Calcium Magnesium Ferritin Total Bilirubin Direct Bilirubin AST ALT Alkaline Phosphatase Lactate Dehydrogenase C-Reactive Protein Total Protein Albumin Triglycerides 738 H Arterial Blood Glucose Arterial Blood Ionized Calcium Urine WBC (Auto) Coronavirus (PCR) SARS-CoV-2 IgG Ab 06/10/20 06/11/20 06/11/20 17:17 00:04 04:38 WBC RBC Hgb Hct MCV MCH MCHC RDW Lymph % (Auto) Lymph # (Auto) Seg Neutrophils % Seg Neuts % (Manual) Lymphocytes % (Manual) Nucleated RBC % Seg Neutrophils # Seg Neutrophils # Man Lymphocytes # (Manual) Monocytes # (Manual) D-Dimer ABG pH 7.479 H POC ABG pCO2 POC ABG pO2 76.7 L ABG pO2 ABG HCO3 ABG O2 Saturation ABG Base Excess ABG Hemoglobin 9.8 L ABG Oxyhemoglobin ABG Sodium 135.8 L ABG Potassium ABG Chloride ABG Glucose 238 H Oxyhemoglobin Sodium Potassium Chloride Carbon Dioxide BUN Creatinine Glucose POC Glucose 156 H 178 H Lactic Acid Calcium Magnesium Ferritin Total Bilirubin Direct Bilirubin AST ALT Alkaline Phosphatase Lactate Dehydrogenase C-Reactive Protein Total Protein Albumin Triglycerides Arterial Blood Glucose 238 H Arterial Blood Ionized Calcium Urine WBC (Auto) Coronavirus (PCR) SARS-CoV-2 IgG Ab 06/11/20 06/11/20 06/11/20 05:21 06:52 11:50 WBC RBC Hgb Hct MCV MCH MCHC RDW Lymph % (Auto) Lymph # (Auto) Seg Neutrophils % Seg Neuts % (Manual) Lymphocytes % (Manual) Nucleated RBC % Seg Neutrophils # Seg Neutrophils # Man Lymphocytes # (Manual) Monocytes # (Manual) D-Dimer ABG pH POC ABG pCO2 POC ABG pO2 ABG pO2 ABG HCO3 ABG O2 Saturation ABG Base Excess ABG Hemoglobin ABG Oxyhemoglobin ABG Sodium ABG Potassium ABG Chloride ABG Glucose Oxyhemoglobin Sodium Potassium Chloride Carbon Dioxide BUN Creatinine Glucose POC Glucose 215 H 187 H Lactic Acid Calcium Magnesium Ferritin Total Bilirubin Direct Bilirubin AST ALT Alkaline Phosphatase Lactate Dehydrogenase C-Reactive Protein Total Protein Albumin Triglycerides 331 H Arterial Blood Glucose Arterial Blood Ionized Calcium Urine WBC (Auto) Coronavirus (PCR) SARS-CoV-2 IgG Ab 06/11/20 06/11/20 06/12/20 17:49 23:35 04:52 WBC RBC Hgb Hct MCV MCH MCHC RDW Lymph % (Auto) Lymph # (Auto) Seg Neutrophils % Seg Neuts % (Manual) Lymphocytes % (Manual) Nucleated RBC % Seg Neutrophils # Seg Neutrophils # Man Lymphocytes # (Manual) Monocytes # (Manual) D-Dimer ABG pH 7.486 H POC ABG pCO2 POC ABG pO2 ABG pO2 ABG HCO3 ABG O2 Saturation ABG Base Excess ABG Hemoglobin 9.4 L ABG Oxyhemoglobin ABG Sodium ABG Potassium 3.2 L ABG Chloride ABG Glucose 209 H Oxyhemoglobin Sodium Potassium Chloride Carbon Dioxide BUN Creatinine Glucose POC Glucose 211 H 200 H Lactic Acid Calcium Magnesium Ferritin Total Bilirubin Direct Bilirubin AST ALT Alkaline Phosphatase Lactate Dehydrogenase C-Reactive Protein Total Protein Albumin Triglycerides Arterial Blood Glucose 209 H Arterial Blood Ionized Calcium Urine WBC (Auto) Coronavirus (PCR) SARS-CoV-2 IgG Ab 06/12/20 06/12/20 06/12/20 05:13 11:47 18:33 WBC RBC Hgb Hct MCV MCH MCHC RDW Lymph % (Auto) Lymph # (Auto) Seg Neutrophils % Seg Neuts % (Manual) Lymphocytes % (Manual) Nucleated RBC % Seg Neutrophils # Seg Neutrophils # Man Lymphocytes # (Manual) Monocytes # (Manual) D-Dimer ABG pH POC ABG pCO2 POC ABG pO2 ABG pO2 ABG HCO3 ABG O2 Saturation ABG Base Excess ABG Hemoglobin ABG Oxyhemoglobin ABG Sodium ABG Potassium ABG Chloride ABG Glucose Oxyhemoglobin Sodium Potassium Chloride Carbon Dioxide BUN Creatinine Glucose POC Glucose 174 H 214 H 194 H Lactic Acid Calcium Magnesium Ferritin Total Bilirubin Direct Bilirubin AST ALT Alkaline Phosphatase Lactate Dehydrogenase C-Reactive Protein Total Protein Albumin Triglycerides Arterial Blood Glucose Arterial Blood Ionized Calcium Urine WBC (Auto) Coronavirus (PCR) SARS-CoV-2 IgG Ab 06/12/20 06/13/20 06/13/20 23:49 05:41 12:30 WBC RBC Hgb Hct MCV MCH MCHC RDW Lymph % (Auto) Lymph # (Auto) Seg Neutrophils % Seg Neuts % (Manual) Lymphocytes % (Manual) Nucleated RBC % Seg Neutrophils # Seg Neutrophils # Man Lymphocytes # (Manual) Monocytes # (Manual) D-Dimer ABG pH POC ABG pCO2 POC ABG pO2 ABG pO2 ABG HCO3 ABG O2 Saturation ABG Base Excess ABG Hemoglobin ABG Oxyhemoglobin ABG Sodium ABG Potassium ABG Chloride ABG Glucose Oxyhemoglobin Sodium Potassium Chloride Carbon Dioxide BUN Creatinine Glucose POC Glucose 160 H 150 H 181 H Lactic Acid Calcium Magnesium Ferritin Total Bilirubin Direct Bilirubin AST ALT Alkaline Phosphatase Lactate Dehydrogenase C-Reactive Protein Total Protein Albumin Triglycerides Arterial Blood Glucose Arterial Blood Ionized Calcium Urine WBC (Auto) Coronavirus (PCR) SARS-CoV-2 IgG Ab 06/13/20 06/13/20 06/13/20 14:14 17:48 23:27 WBC 12.8 H RBC 2.33 L Hgb 8.0 L Hct 23.3 L MCV 100 H MCH 34 H MCHC RDW 15.7 H Lymph % (Auto) Lymph # (Auto) Seg Neutrophils % Seg Neuts % (Manual) 85.0 H Lymphocytes % (Manual) 10.0 L Nucleated RBC % Seg Neutrophils # Seg Neutrophils # Man 10.9 H Lymphocytes # (Manual) Monocytes # (Manual) D-Dimer ABG pH POC ABG pCO2 POC ABG pO2 ABG pO2 ABG HCO3 ABG O2 Saturation ABG Base Excess ABG Hemoglobin ABG Oxyhemoglobin ABG Sodium ABG Potassium ABG Chloride ABG Glucose Oxyhemoglobin Sodium Potassium Chloride Carbon Dioxide BUN Creatinine Glucose POC Glucose 173 H 154 H Lactic Acid Calcium Magnesium Ferritin Total Bilirubin Direct Bilirubin AST ALT Alkaline Phosphatase Lactate Dehydrogenase C-Reactive Protein Total Protein Albumin Triglycerides Arterial Blood Glucose Arterial Blood Ionized Calcium Urine WBC (Auto) Coronavirus (PCR) SARS-CoV-2 IgG Ab 06/14/20 06/14/20 06/14/20 03:58 05:21 07:15 WBC 26.2 H RBC 2.97 L Hgb 9.7 L Hct 29.9 L D MCV 101 H MCH 33 H MCHC RDW 15.3 H Lymph % (Auto) Lymph # (Auto) Seg Neutrophils % Seg Neuts % (Manual) 79.0 H Lymphocytes % (Manual) 5.0 L Nucleated RBC % 3.0 H Seg Neutrophils # Seg Neutrophils # Man 20.7 H Lymphocytes # (Manual) Monocytes # (Manual) 1.3 H D-Dimer ABG pH POC ABG pCO2 51.5 H POC ABG pO2 70.0 L ABG pO2 ABG HCO3 ABG O2 Saturation ABG Base Excess ABG Hemoglobin 10.1 L ABG Oxyhemoglobin ABG Sodium 131.5 L ABG Potassium 3.1 L ABG Chloride 93.0 L ABG Glucose 188 H Oxyhemoglobin Sodium Potassium Chloride Carbon Dioxide BUN Creatinine Glucose POC Glucose 147 H Lactic Acid Calcium Magnesium Ferritin Total Bilirubin Direct Bilirubin AST ALT Alkaline Phosphatase Lactate Dehydrogenase C-Reactive Protein Total Protein Albumin Triglycerides Arterial Blood Glucose 188 H Arterial Blood Ionized Calcium Urine WBC (Auto) Coronavirus (PCR) SARS-CoV-2 IgG Ab 06/14/20 06/14/20 06/14/20 07:15 11:30 11:50 WBC RBC Hgb Hct MCV MCH MCHC RDW Lymph % (Auto) Lymph # (Auto) Seg Neutrophils % Seg Neuts % (Manual) Lymphocytes % (Manual) Nucleated RBC % Seg Neutrophils # Seg Neutrophils # Man Lymphocytes # (Manual) Monocytes # (Manual) D-Dimer ABG pH POC ABG pCO2 POC ABG pO2 ABG pO2 ABG HCO3 ABG O2 Saturation ABG Base Excess ABG Hemoglobin ABG Oxyhemoglobin ABG Sodium ABG Potassium ABG Chloride ABG Glucose Oxyhemoglobin Sodium 135 L Potassium 3.5 L Chloride 90.4 L Carbon Dioxide 38 H BUN Creatinine 0.5 L Glucose 190 H POC Glucose 176 H Lactic Acid Calcium Magnesium Ferritin 1496.0 H Total Bilirubin Direct Bilirubin AST ALT 81 H Alkaline Phosphatase Lactate Dehydrogenase C-Reactive Protein Total Protein Albumin 2.9 L Triglycerides Arterial Blood Glucose Arterial Blood Ionized Calcium Urine WBC (Auto) Coronavirus (PCR) SARS-CoV-2 IgG Ab 06/14/20 06/15/20 06/15/20 23:31 04:00 05:00 WBC RBC Hgb Hct MCV MCH MCHC RDW Lymph % (Auto) Lymph # (Auto) Seg Neutrophils % Seg Neuts % (Manual) Lymphocytes % (Manual) Nucleated RBC % Seg Neutrophils # Seg Neutrophils # Man Lymphocytes # (Manual) Monocytes # (Manual) D-Dimer ABG pH POC ABG pCO2 POC ABG pO2 ABG pO2 ABG HCO3 ABG O2 Saturation ABG Base Excess ABG Hemoglobin ABG Oxyhemoglobin ABG Sodium ABG Potassium ABG Chloride ABG Glucose Oxyhemoglobin Sodium 133 L Potassium Chloride 91.1 L Carbon Dioxide 34 H BUN Creatinine 0.4 L Glucose 159 H POC Glucose 200 H Lactic Acid Calcium Magnesium Ferritin Total Bilirubin 2.00 H Direct Bilirubin AST 47 H ALT 77 H Alkaline Phosphatase Lactate Dehydrogenase C-Reactive Protein Total Protein Albumin 2.6 L Triglycerides 152 H Arterial Blood Glucose Arterial Blood Ionized Calcium Urine WBC (Auto) Coronavirus (PCR) SARS-CoV-2 IgG Ab 06/15/20 06/15/20 06/15/20 05:35 06:27 11:38 WBC RBC Hgb Hct MCV MCH MCHC RDW Lymph % (Auto) Lymph # (Auto) Seg Neutrophils % Seg Neuts % (Manual) Lymphocytes % (Manual) Nucleated RBC % Seg Neutrophils # Seg Neutrophils # Man Lymphocytes # (Manual) Monocytes # (Manual) D-Dimer ABG pH POC ABG pCO2 61.0 H POC ABG pO2 67.9 L ABG pO2 ABG HCO3 ABG O2 Saturation ABG Base Excess ABG Hemoglobin 10.4 L ABG Oxyhemoglobin ABG Sodium 132.7 L ABG Potassium 3.3 L ABG Chloride 92.0 L ABG Glucose 158 H Oxyhemoglobin Sodium Potassium Chloride Carbon Dioxide BUN Creatinine Glucose POC Glucose 148 H 197 H Lactic Acid Calcium Magnesium Ferritin Total Bilirubin Direct Bilirubin AST ALT Alkaline Phosphatase Lactate Dehydrogenase C-Reactive Protein Total Protein Albumin Triglycerides Arterial Blood Glucose 158 H Arterial Blood Ionized Calcium Urine WBC (Auto) Coronavirus (PCR) SARS-CoV-2 IgG Ab 06/15/20 06/15/20 06/16/20 17:29 Unknown 00:01 WBC 20.7 H RBC 2.57 L Hgb 8.9 L Hct 25.8 L MCV 101 H MCH 35 H MCHC 35 H RDW 16.0 H Lymph % (Auto) Lymph # (Auto) Seg Neutrophils % Seg Neuts % (Manual) 83.0 H Lymphocytes % (Manual) 8.0 L Nucleated RBC % Seg Neutrophils # Seg Neutrophils # Man 17.2 H Lymphocytes # (Manual) Monocytes # (Manual) 1.2 H D-Dimer ABG pH POC ABG pCO2 POC ABG pO2 ABG pO2 ABG HCO3 ABG O2 Saturation ABG Base Excess ABG Hemoglobin ABG Oxyhemoglobin ABG Sodium ABG Potassium ABG Chloride ABG Glucose Oxyhemoglobin Sodium Potassium Chloride Carbon Dioxide BUN Creatinine Glucose POC Glucose 231 H 257 H Lactic Acid Calcium Magnesium Ferritin Total Bilirubin Direct Bilirubin AST ALT Alkaline Phosphatase Lactate Dehydrogenase C-Reactive Protein Total Protein Albumin Triglycerides Arterial Blood Glucose Arterial Blood Ionized Calcium Urine WBC (Auto) Coronavirus (PCR) SARS-CoV-2 IgG Ab 06/16/20 06/16/20 06/16/20 04:00 04:00 05:22 WBC 13.8 H RBC 2.03 L Hgb 7.6 L Hct 20.7 L MCV 102 H MCH 37 H MCHC 37 H RDW 16.2 H Lymph % (Auto) 4.4 L Lymph # (Auto) 0.6 L Seg Neutrophils % Seg Neuts % (Manual) Lymphocytes % (Manual) Nucleated RBC % Seg Neutrophils # 12.7 H Seg Neutrophils # Man Lymphocytes # (Manual) Monocytes # (Manual) D-Dimer ABG pH POC ABG pCO2 POC ABG pO2 ABG pO2 ABG HCO3 ABG O2 Saturation ABG Base Excess ABG Hemoglobin ABG Oxyhemoglobin ABG Sodium ABG Potassium ABG Chloride ABG Glucose Oxyhemoglobin Sodium 130 L Potassium Chloride 88.9 L Carbon Dioxide 36 H BUN Creatinine 0.3 L Glucose 276 H POC Glucose 250 H Lactic Acid Calcium Magnesium Ferritin Total Bilirubin Direct Bilirubin AST ALT Alkaline Phosphatase Lactate Dehydrogenase C-Reactive Protein Total Protein Albumin Triglycerides Arterial Blood Glucose Arterial Blood Ionized Calcium Urine WBC (Auto) Coronavirus (PCR) SARS-CoV-2 IgG Ab 06/16/20 06/16/20 06/17/20 12:44 18:18 00:39 WBC RBC Hgb Hct MCV MCH MCHC RDW Lymph % (Auto) Lymph # (Auto) Seg Neutrophils % Seg Neuts % (Manual) Lymphocytes % (Manual) Nucleated RBC % Seg Neutrophils # Seg Neutrophils # Man Lymphocytes # (Manual) Monocytes # (Manual) D-Dimer ABG pH POC ABG pCO2 POC ABG pO2 ABG pO2 ABG HCO3 ABG O2 Saturation ABG Base Excess ABG Hemoglobin ABG Oxyhemoglobin ABG Sodium ABG Potassium ABG Chloride ABG Glucose Oxyhemoglobin Sodium Potassium Chloride Carbon Dioxide BUN Creatinine Glucose POC Glucose 279 H 239 H 247 H Lactic Acid Calcium Magnesium Ferritin Total Bilirubin Direct Bilirubin AST ALT Alkaline Phosphatase Lactate Dehydrogenase C-Reactive Protein Total Protein Albumin Triglycerides Arterial Blood Glucose Arterial Blood Ionized Calcium Urine WBC (Auto) Coronavirus (PCR) SARS-CoV-2 IgG Ab 06/17/20 06/17/20 06/17/20 03:40 04:08 10:54 WBC RBC Hgb Hct MCV MCH MCHC RDW Lymph % (Auto) Lymph # (Auto) Seg Neutrophils % Seg Neuts % (Manual) Lymphocytes % (Manual) Nucleated RBC % Seg Neutrophils # Seg Neutrophils # Man Lymphocytes # (Manual) Monocytes # (Manual) D-Dimer ABG pH POC ABG pCO2 65.7 H POC ABG pO2 ABG pO2 ABG HCO3 ABG O2 Saturation ABG Base Excess ABG Hemoglobin 11.9 L ABG Oxyhemoglobin ABG Sodium ABG Potassium ABG Chloride 93.0 L ABG Glucose 244 H Oxyhemoglobin Sodium Potassium Chloride Carbon Dioxide BUN Creatinine Glucose POC Glucose 221 H 248 H Lactic Acid Calcium Magnesium Ferritin Total Bilirubin Direct Bilirubin AST ALT Alkaline Phosphatase Lactate Dehydrogenase C-Reactive Protein Total Protein Albumin Triglycerides Arterial Blood Glucose 244 H Arterial Blood Ionized Calcium Urine WBC (Auto) Coronavirus (PCR) SARS-CoV-2 IgG Ab 06/17/20 06/17/20 06/17/20 17:47 23:11 23:29 WBC RBC Hgb Hct MCV MCH MCHC RDW Lymph % (Auto) Lymph # (Auto) Seg Neutrophils % Seg Neuts % (Manual) Lymphocytes % (Manual) Nucleated RBC % Seg Neutrophils # Seg Neutrophils # Man Lymphocytes # (Manual) Monocytes # (Manual) D-Dimer ABG pH POC ABG pCO2 85.2 H POC ABG pO2 48.4 L ABG pO2 ABG HCO3 ABG O2 Saturation ABG Base Excess ABG Hemoglobin 8.0 L ABG Oxyhemoglobin ABG Sodium ABG Potassium ABG Chloride 95.0 L ABG Glucose 292 H Oxyhemoglobin Sodium Potassium Chloride Carbon Dioxide BUN Creatinine Glucose POC Glucose 245 H 252 H Lactic Acid Calcium Magnesium Ferritin Total Bilirubin Direct Bilirubin AST ALT Alkaline Phosphatase Lactate Dehydrogenase C-Reactive Protein Total Protein Albumin Triglycerides Arterial Blood Glucose 292 H Arterial Blood Ionized Calcium Urine WBC (Auto) Coronavirus (PCR) SARS-CoV-2 IgG Ab 06/18/20 06/18/20 06/18/20 03:14 05:34 11:47 WBC RBC Hgb Hct MCV MCH MCHC RDW Lymph % (Auto) Lymph # (Auto) Seg Neutrophils % Seg Neuts % (Manual) Lymphocytes % (Manual) Nucleated RBC % Seg Neutrophils # Seg Neutrophils # Man Lymphocytes # (Manual) Monocytes # (Manual) D-Dimer ABG pH POC ABG pCO2 65.4 H POC ABG pO2 160.7 H ABG pO2 ABG HCO3 ABG O2 Saturation ABG Base Excess ABG Hemoglobin 7.8 L ABG Oxyhemoglobin ABG Sodium ABG Potassium ABG Chloride 95.0 L ABG Glucose 251 H Oxyhemoglobin Sodium Potassium Chloride Carbon Dioxide BUN Creatinine Glucose POC Glucose 243 H 263 H Lactic Acid Calcium Magnesium Ferritin Total Bilirubin Direct Bilirubin AST ALT Alkaline Phosphatase Lactate Dehydrogenase C-Reactive Protein Total Protein Albumin Triglycerides Arterial Blood Glucose 251 H Arterial Blood Ionized Calcium Urine WBC (Auto) Coronavirus (PCR) SARS-CoV-2 IgG Ab Chest x-ray: image reviewed Allied health notes reviewed: RT
[2020-06-18] MEDS: POLYETHYLENE GLYCOL 3350 17 GM POWDER PO SCH (21:39)
[2020-06-18] MEDS: INSULIN GLARGINE 100 UNITS/ML SUB-Q SCH (21:40)
[2020-06-19] MEDS: MIDAZOLAM 100 MG in SODIUM CHLORIDE 0.9% 80 ML IV SCH ×2 (00:29→19:00)
[2020-06-19] MEDS: INSULIN LISPRO 100 UNIT/ML VIAL 3 mL SUB-Q SCH ×5 (00:31→23:22)
[2020-06-19] MEDS: fentaNYL DRIP Premix 2,000 MCG/100 ML BAG IV SCH ×5 (03:33→21:23)
[2020-06-19] MEDS: NORepinephrine/NS 4 MG-250 ML 4 MG/250 ML BAG IV SCH ×3 (03:34→19:00)
[2020-06-19] MEDS: ACETAMINOPHEN 325 MG/10.15 ML ORAL LIQD UNIT DOSE FEEDTUBE PRN ×2 (04:40→17:28)
[2020-06-19] MEDS: PHENobarbital 20 MG/5 ML ORAL LIQD FEEDTUBE SCH ×3 (05:08→21:25)
[2020-06-19] MEDS: methylPREDNISolone Sod Succinate 40 MG/1 ML INJ IV SCH ×2 (05:08→17:13)
[2020-06-19] MEDS: IPRATROPIUM/ALBUTEROL SULFATE 3 ML AMPUL.NEB IH SCH (07:34)
[2020-06-19] MEDS: FOLIC ACID 1 MG TAB PO SCH (09:50)
[2020-06-19] MEDS: QUEtiapine 100 MG TAB PO SCH ×2 (09:50→21:24)
[2020-06-19] MEDS: FAMOTIDINE 20 MG TAB PO SCH ×2 (09:50→21:25)
[2020-06-19] MEDS: SENNOSIDES 8.6 MG TAB PO SCH ×2 (09:50→21:25)
[2020-06-19] MEDS: ENOXAPARIN 120 MG/0.8 ML INJ SUB-Q SCH ×2 (09:51→21:24)
[2020-06-19] MEDS: DOCUSATE SODIUM 100 MG/10 ML ORAL LIQD PO SCH ×2 (09:51→21:25)
--- NOTE | 2020-06-19 10:38 | Progress Note ---
Assessment and Plan Acute hypoxemic respiratory failure due to COVID-19 Severe Sepsis Bilateral pneumonia Acute kidney injury (SEN) with acute tubular necrosis (ATN) Alcohol dependence Elevated liver function tests - maintaining status-quo mostly - upgrade bowel regimen re: constipation - keep peep at 16 - continue to wean supplemental oxygen for target O2 sat's > 92% acutely - continue to wean Levophed for target MAP > 65 mmHg - tracheostomy placement once oxygenation better / more hemodynamically stable - continue care as below otherwise; - he will need a tracheostomy once numbers better - continue Daily SAT and SBT assessment as tolerated - VAP bundle addressed - continue lung protective strategies - continue bronchodilators with pulmonary hygiene per RT - wean per pulmonary driven protocols otherwise - accuchecks with glycemic control per SSI (While critically ill target blood glucose of 140-180 mg/dL; avoid hypoglycemia) - sedation prn for target RASS -1 to -2 - continue enteral nutritional support at goal rate as tolerated - continue airborne and contact isolation - follow repeat COVID-19 testing - continue Zinc & Vit C supplementaion - continue systemic steroids for Asthma / severe COVID infection - Prone positioning as tolerated - continue empiric full dose anticoagulation re: elevated d-dimers / hypercoagulable state - NOT a candidate for COVID convalescent plasma - continue systemic steroids X >/= 10 days - completed remdesivir dosing (total 5 days) - Monitor liver function test on Remdesivir - trend inflammatory markers - ferritin, Ddimer, CRP, LDH; to aid clinical decision making - empiric AB's coverage per ID rec's otherwise - accuchecks with glycemic control per SSI (While critically ill target blood glucose of 140-180 mg/dL; avoid hypoglycemia) - avoid nephrotoxins, renally dose all medications - continue to avoid benzodiazepine's, reduce the possibility of delirium - continue wound care per RN / WCN - prn analgesia per CPOT score - Maintenance of sleep-wake cycle, avoid delirium - continue to avoid benzodiazepine's, reduce the possibility of delirium - aspiration precautions - G.I. & VTE prophylaxis - PT/OT/ROM exercises - continue mobility protocols for pressure ulcer prophylaxis - Monitor hemodynamics closely - continue other care per attending / other consultants - discharge planning ongoing concurrently .... Re-evaluate in am & prn CONDITION: CRITICAL PROGNOSIS: GUARDED CODE STATUS: FULL CODE The high probability of a clinically significant, sudden or life-threatening deterioration of the [respiratory, cardiovascular, hematologic & neurologic] system(s) required my full and direct attention, intervention and personal management. The aggregate critical care time was [33] minutes without overlap. Time includes spent on; [x] Data Review and interpretation [x] Patient assessment and monitoring of vital signs [x] Documentation [x] Medication orders and management Subjective Date of service: 06/19/20 Principal diagnosis: Ac hypoxemic resp failure; COVID-19; Severe Sepsis; Shaggy PNA; Alcohol Abuse Interval history: Patient is seen today for: Acute hypoxemic respiratory failure due to COVID-19; Severe Sepsis; Bilateral pneumonia; Alcohol dependence; Elevated liver function tests Seen and examined at bedside; 24hour events reviewed; nursing and respiratory care staff consulted; no adverse overnight events reported to me; resting in bed; remains on MVS; oxygenation still labile and remains on Levophed; AMS is persistent; no overt decompensation otherwise; no high grade fevers Objective Vital Signs - 12hr 06/18/20 06/18/20 06/18/20 22:45 23:00 23:15 Temperature Pulse Rate 131 H 133 H 130 H Pulse Rate [ Bilateral Throughout] Respiratory 28 H 24 26 H Rate Respiratory Rate [Bilateral Throughout] Blood Pressure 100/59 108/64 104/58 O2 Sat by Pulse 96 94 95 Oximetry 06/18/20 06/18/20 06/19/20 23:30 23:45 00:00 Temperature 99 F Pulse Rate 133 H 131 H 131 H Pulse Rate [ Bilateral Throughout] Respiratory 21 24 21 Rate Respiratory Rate [Bilateral Throughout] Blood Pressure 96/61 105/60 97/62 O2 Sat by Pulse 95 96 96 Oximetry 06/19/20 06/19/20 06/19/20 00:15 00:16 00:30 Temperature Pulse Rate 130 H 128 H 128 H Pulse Rate [ Bilateral Throughout] Respiratory 27 H 19 Rate Respiratory Rate [Bilateral Throughout] Blood Pressure 107/67 107/67 116/64 O2 Sat by Pulse 95 96 92 Oximetry 06/19/20 06/19/20 06/19/20 00:45 01:00 01:15 Temperature Pulse Rate 125 H 128 H 126 H Pulse Rate [ Bilateral Throughout] Respiratory 21 27 H 25 H Rate Respiratory Rate [Bilateral Throughout] Blood Pressure 112/61 115/60 124/67 O2 Sat by Pulse 93 94 92 Oximetry 06/19/20 06/19/2020 01:30 01:45 02:00 Temperature Pulse Rate 128 H 128 H 127 H Pulse Rate [ Bilateral Throughout] Respiratory 24 24 25 H Rate Respiratory Rate [Bilateral Throughout] Blood Pressure 113/65 117/61 123/64 O2 Sat by Pulse 93 93 94 Oximetry 06/19/20 06/19/20 06/19/20 02:15 02:30 02:45 Temperature Pulse Rate 128 H 117 H 122 H Pulse Rate [ Bilateral Throughout] Respiratory 22 19 24 Rate Respiratory Rate [Bilateral Throughout] Blood Pressure 125/64 135/71 121/66 O2 Sat by Pulse 93 92 93 Oximetry 06/19/20 06/19/20 06/19/20 03:00 03:15 03:30 Temperature Pulse Rate 127 H 128 H 137 H Pulse Rate [ Bilateral Throughout] Respiratory 22 29 H 35 H Rate Respiratory Rate [Bilateral Throughout] Blood Pressure 121/66 134/77 126/66 O2 Sat by Pulse 96 93 91 Oximetry 06/19/20 06/19/20 06/19/20 03:43 03:45 04:00 Temperature 99.1 F Pulse Rate 127 H 130 H Pulse Rate [ Bilateral Throughout] Respiratory 29 H 30 H Rate Respiratory Rate [Bilateral Throughout] Blood Pressure 140/71 142/78 O2 Sat by Pulse 90 98 Oximetry 06/19/20 06/19/20 06/19/20 04:07 04:15 04:30 Temperature Pulse Rate 128 H 123 H 128 H Pulse Rate [ Bilateral Throughout] Respiratory 37 H 30 H Rate Respiratory Rate [Bilateral Throughout] Blood Pressure 122/66 128/69 O2 Sat by Pulse 91 91 Oximetry 06/19/20 06/19/20 06/19/20 04:43 04:45 05:00 Temperature Pulse Rate 130 H 129 H 129 H Pulse Rate [ Bilateral Throughout] Respiratory 29 H 31 H Rate Respiratory Rate [Bilateral Throughout] Blood Pressure 128/69 131/70 128/70 O2 Sat by Pulse 96 92 92 Oximetry 06/19/20 06/19/20 06/19/20 05:15 05:30 05:45 Temperature Pulse Rate 129 H 126 H 125 H Pulse Rate [ Bilateral Throughout] Respiratory 34 H 37 H 30 H Rate Respiratory Rate [Bilateral Throughout] Blood Pressure 124/70 121/66 120/65 O2 Sat by Pulse 91 96 94 Oximetry 06/19/20 06/19/20 06/19/20 06:00 06:15 06:30 Temperature Pulse Rate 127 H 127 H 124 H Pulse Rate [ Bilateral Throughout] Respiratory 31 H 28 H 28 H Rate Respiratory Rate [Bilateral Throughout] Blood Pressure 105/61 114/63 108/67 O2 Sat by Pulse 93 92 93 Oximetry 06/19/20 06/19/20 06/19/20 06:45 07:00 07:15 Temperature Pulse Rate 123 H 127 H 121 H Pulse Rate [ Bilateral Throughout] Respiratory 25 H 29 H 23 Rate Respiratory Rate [Bilateral Throughout] Blood Pressure 103/70 103/65 120/67 O2 Sat by Pulse 92 93 93 Oximetry 06/19/20 06/19/20 06/19/20 07:30 07:31 07:34 Temperature Pulse Rate 114 H 113 H Pulse Rate [ 120 H Bilateral Throughout] Respiratory 21 Rate Respiratory 32 H Rate [Bilateral Throughout] Blood Pressure 117/70 117/70 O2 Sat by Pulse 93 96 Oximetry 06/19/20 06/19/20 06/19/20 07:46 07:54 08:00 Temperature 98.7 F Pulse Rate 129 H 117 H Pulse Rate [ Bilateral Throughout] Respiratory 27 H 25 H Rate Respiratory Rate [Bilateral Throughout] Blood Pressure 105/66 105/66 O2 Sat by Pulse 96 97 Oximetry 06/19/20 06/19/20 06/19/20 08:15 08:30 08:45 Temperature Pulse Rate 120 H 120 H 121 H Pulse Rate [ Bilateral Throughout] Respiratory 24 23 20 Rate Respiratory Rate [Bilateral Throughout] Blood Pressure 127/71 126/73 127/68 O2 Sat by Pulse 93 92 93 Oximetry 06/19/20 06/19/20 06/19/20 09:00 09:15 09:30 Temperature Pulse Rate 121 H 120 H 121 H Pulse Rate [ Bilateral Throughout] Respiratory 18 20 19 Rate Respiratory Rate [Bilateral Throughout] Blood Pressure 126/75 120/68 117/75 O2 Sat by Pulse 95 95 97 Oximetry 06/19/20 06/19/20 09:45 10:00 Temperature Pulse Rate 119 H 120 H Pulse Rate [ Bilateral Throughout] Respiratory 21 30 H Rate Respiratory Rate [Bilateral Throughout] Blood Pressure 125/71 142/85 O2 Sat by Pulse 95 94 Oximetry Constitutional: appears uncomfortable, other (middle aged obese male with normal respiratory effort at rest on MVS) Eyes: non-icteric ENT: oropharynx moist, other (ETT 24 cm CHILO) Neck: supple, no JVD Effort: normal Ascultation: Bilateral: diminished breath sounds, rhonchi Percussion: Bilateral: not dull Cardiovascular: regular rate and rhythm Gastrointestinal: normoactive bowel sounds, soft, non-tender, non-distended (pr otuberant) Integumentary: normal Extremities: no cyanosis, no edema, pulses normal, no ischemia or petechiae Neurologic: pupils equal and round, CN II-XII normal, other (unable top assess re: AMS) Psychiatric: other (sedated) CBC and BMP: 06/16/20 04:00 06/16/20 04:00 ABG, PT/INR, D-dimer: ABG ABG pH 7.390 (7.320-7.450) 06/19/20 04:32 POC ABG pCO2 83.1 mmHg (32.0-48.0) H 06/19/20 04:32 ABG pCO2 69.6 mm Hg 06/05/20 12:35 POC ABG pO2 65.8 mmHg (83-108) L 06/19/20 04:32 ABG pO2 127.9 mm Hg (80.0-90.0) H 06/05/20 12:35 POC ABG HCO3 49.2 06/19/20 04:32 ABG O2 Saturation 98.3 % (95.0-99.0) 06/05/20 12:35 PT/INR, D-dimer PT 14.4 Sec. (12.2-14.9) 06/13/20 14:14 INR 1.13 (0.87-1.13) 06/13/20 14:14 D-Dimer 1887.82 ng/mlDDU (0-234) H 05/20/20 08:16 Abnormal lab findings: Abnormal Labs 05/09/20 05/09/20 05/09/20 12:59 12:59 12:59 WBC 11.8 H RBC Hgb Hct MCV 96 H MCH 34 H MCHC 35 H RDW Lymph % (Auto) 6.9 L Lymph # (Auto) 0.8 L Seg Neutrophils % 87.5 H Seg Neuts % (Manual) Lymphocytes % (Manual) Nucleated RBC % Seg Neutrophils # 10.3 H Seg Neutrophils # Man Lymphocytes # (Manual) Monocytes # (Manual) D-Dimer ABG pH POC ABG pCO2 POC ABG pO2 ABG pO2 ABG HCO3 ABG O2 Saturation ABG Base Excess ABG Hemoglobin ABG Oxyhemoglobin ABG Sodium ABG Potassium ABG Chloride ABG Glucose Oxyhemoglobin Sodium 130 L Potassium 3.5 L Chloride 86.4 L Carbon Dioxide BUN 33 H Creatinine 2.3 H Glucose 156 H POC Glucose Lactic Acid Calcium Magnesium Ferritin Total Bilirubin 3.40 H Direct Bilirubin 1.7 H AST 385 H ALT 134 H Alkaline Phosphatase Lactate Dehydrogenase C-Reactive Protein Total Protein Albumin 3.0 L Triglycerides Arterial Blood Glucose Arterial Blood Ionized Calcium Urine WBC (Auto) Coronavirus (PCR) SARS-CoV-2 IgG Ab 05/09/20 05/09/20 05/09/20 12:59 12:59 12:59 WBC RBC Hgb Hct MCV MCH MCHC RDW Lymph % (Auto) Lymph # (Auto) Seg Neutrophils % Seg Neuts % (Manual) Lymphocytes % (Manual) Nucleated RBC % Seg Neutrophils # Seg Neutrophils # Man Lymphocytes # (Manual) Monocytes # (Manual) D-Dimer 3242.51 H ABG pH POC ABG pCO2 POC ABG pO2 ABG pO2 ABG HCO3 ABG O2 Saturation ABG Base Excess ABG Hemoglobin ABG Oxyhemoglobin ABG Sodium ABG Potassium ABG Chloride ABG Glucose Oxyhemoglobin Sodium Potassium Chloride Carbon Dioxide BUN Creatinine Glucose 158 H POC Glucose Lactic Acid 3.50 H* Calcium Magnesium Ferritin Total Bilirubin Direct Bilirubin AST ALT Alkaline Phosphatase Lactate Dehydrogenase 2166 H C-Reactive Protein 39.00 H Total Protein Albumin Triglycerides Arterial Blood Glucose Arterial Blood Ionized Calcium Urine WBC (Auto) Coronavirus (PCR) SARS-CoV-2 IgG Ab 05/09/20 05/09/20 05/09/20 12:59 14:20 14:20 WBC RBC Hgb Hct MCV MCH MCHC RDW Lymph % (Auto) Lymph # (Auto) Seg Neutrophils % Seg Neuts % (Manual) Lymphocytes % (Manual) Nucleated RBC % Seg Neutrophils # Seg Neutrophils # Man Lymphocytes # (Manual) Monocytes # (Manual) D-Dimer 2861.78 H ABG pH POC ABG pCO2 POC ABG pO2 ABG pO2 ABG HCO3 ABG O2 Saturation ABG Base Excess ABG Hemoglobin ABG Oxyhemoglobin ABG Sodium ABG Potassium ABG Chloride ABG Glucose Oxyhemoglobin Sodium Potassium Chloride Carbon Dioxide BUN Creatinine Glucose POC Glucose Lactic Acid 2.20 H* Calcium Magnesium Ferritin 83467.0 H Total Bilirubin Direct Bilirubin AST ALT Alkaline Phosphatase Lactate Dehydrogenase C-Reactive Protein Total Protein Albumin Triglycerides Arterial Blood Glucose Arterial Blood Ionized Calcium Urine WBC (Auto) Coronavirus (PCR) SARS-CoV-2 IgG Ab 05/09/20 05/09/20 05/09/20 14:20 14:20 15:56 WBC RBC Hgb Hct MCV MCH MCHC RDW Lymph % (Auto) Lymph # (Auto) Seg Neutrophils % Seg Neuts % (Manual) Lymphocytes % (Manual) Nucleated RBC % Seg Neutrophils # Seg Neutrophils # Man Lymphocytes # (Manual) Monocytes # (Manual) D-Dimer ABG pH POC ABG pCO2 POC ABG pO2 57.3 L ABG pO2 ABG HCO3 ABG O2 Saturation ABG Base Excess ABG Hemoglobin ABG Oxyhemoglobin 86.3 L ABG Sodium 129.9 L ABG Potassium ABG Chloride ABG Glucose 146 H Oxyhemoglobin Sodium Potassium Chloride Carbon Dioxide BUN Creatinine Glucose 143 H POC Glucose Lactic Acid Calcium Magnesium Ferritin 11511.0 H Total Bilirubin Direct Bilirubin AST ALT Alkaline Phosphatase Lactate Dehydrogenase 1953 H C-Reactive Protein 33.50 H Total Protein Albumin Triglycerides Arterial Blood Glucose 146 H Arterial Blood Ionized Calcium 3.9 L Urine WBC (Auto) Coronavirus (PCR) SARS-CoV-2 IgG Ab 05/10/20 05/10/20 05/10/20 10:32 10:32 18:50 WBC 15.4 H RBC Hgb Hct MCV 97 H MCH 33 H MCHC RDW 13.1 L Lymph % (Auto) Lymph # (Auto) Seg Neutrophils % Seg Neuts % (Manual) 89.0 H Lymphocytes % (Manual) 8.0 L Nucleated RBC % Seg Neutrophils # Seg Neutrophils # Man 13.7 H Lymphocytes # (Manual) Monocytes # (Manual) D-Dimer ABG pH POC ABG pCO2 POC ABG pO2 ABG pO2 ABG HCO3 ABG O2 Saturation ABG Base Excess ABG Hemoglobin ABG Oxyhemoglobin ABG Sodium ABG Potassium ABG Chloride ABG Glucose Oxyhemoglobin Sodium 136 L Potassium Chloride 97.4 L Carbon Dioxide BUN 37 H Creatinine 1.7 H Glucose 209 H POC Glucose Lactic Acid Calcium Magnesium Ferritin > 2000.0 H Total Bilirubin Direct Bilirubin AST ALT Alkaline Phosphatase Lactate Dehydrogenase C-Reactive Protein Total Protein Albumin Triglycerides Arterial Blood Glucose Arterial Blood Ionized Calcium Urine WBC (Auto) Coronavirus (PCR) SARS-CoV-2 IgG Ab 05/10/20 05/10/20 05/10/20 18:50 19:00 Unknown WBC RBC Hgb Hct MCV MCH MCHC RDW Lymph % (Auto) Lymph # (Auto) Seg Neutrophils % Seg Neuts % (Manual) Lymphocytes % (Manual) Nucleated RBC % Seg Neutrophils # Seg Neutrophils # Man Lymphocytes # (Manual) Monocytes # (Manual) D-Dimer > 68799 H ABG pH POC ABG pCO2 POC ABG pO2 ABG pO2 ABG HCO3 ABG O2 Saturation ABG Base Excess ABG Hemoglobin ABG Oxyhemoglobin ABG Sodium ABG Potassium ABG Chloride ABG Glucose Oxyhemoglobin Sodium Potassium Chloride Carbon Dioxide BUN Creatinine Glucose POC Glucose Lactic Acid Calcium Magnesium Ferritin Total Bilirubin Direct Bilirubin AST ALT Alkaline Phosphatase Lactate Dehydrogenase 1879 H C-Reactive Protein 24.80 H Total Protein Albumin Triglycerides Arterial Blood Glucose Arterial Blood Ionized Calcium Urine WBC (Auto) 11.0 H Coronavirus (PCR) SARS-CoV-2 IgG Ab 05/10/20 05/11/20 05/11/20 Unknown 07:30 07:30 WBC RBC Hgb Hct MCV MCH MCHC RDW Lymph % (Auto) Lymph # (Auto) Seg Neutrophils % Seg Neuts % (Manual) Lymphocytes % (Manual) Nucleated RBC % Seg Neutrophils # Seg Neutrophils # Man Lymphocytes # (Manual) Monocytes # (Manual) D-Dimer > 2000 H ABG pH POC ABG pCO2 POC ABG pO2 ABG pO2 ABG HCO3 ABG O2 Saturation ABG Base Excess ABG Hemoglobin ABG Oxyhemoglobin ABG Sodium ABG Potassium ABG Chloride ABG Glucose Oxyhemoglobin Sodium Potassium Chloride 96.3 L Carbon Dioxide BUN 36 H Creatinine Glucose 161 H POC Glucose Lactic Acid Calcium 8.3 L Magnesium Ferritin Total Bilirubin 1.50 H Direct Bilirubin 0.6 H AST 178 H ALT 111 H Alkaline Phosphatase Lactate Dehydrogenase C-Reactive Protein Total Protein Albumin 3.0 L Triglycerides Arterial Blood Glucose Arterial Blood Ionized Calcium Urine WBC (Auto) Coronavirus (PCR) Positive A SARS-CoV-2 IgG Ab 05/11/20 05/11/20 05/11/20 07:30 07:30 07:30 WBC RBC Hgb Hct MCV MCH MCHC RDW Lymph % (Auto) Lymph # (Auto) Seg Neutrophils % Seg Neuts % (Manual) Lymphocytes % (Manual) Nucleated RBC % Seg Neutrophils # Seg Neutrophils # Man Lymphocytes # (Manual) Monocytes # (Manual) D-Dimer ABG pH POC ABG pCO2 POC ABG pO2 ABG pO2 ABG HCO3 ABG O2 Saturation ABG Base Excess ABG Hemoglobin ABG Oxyhemoglobin ABG Sodium ABG Potassium ABG Chloride ABG Glucose Oxyhemoglobin Sodium Potassium Chloride Carbon Dioxide BUN Creatinine Glucose POC Glucose Lactic Acid Calcium Magnesium Ferritin 40140.0 H Total Bilirubin Direct Bilirubin AST ALT Alkaline Phosphatase Lactate Dehydrogenase 1523 H C-Reactive Protein 12.90 H Total Protein Albumin Triglycerides Arterial Blood Glucose Arterial Blood Ionized Calcium Urine WBC (Auto) Coronavirus (PCR) SARS-CoV-2 IgG Ab Reactive A 05/13/20 05/13/20 05/15/20 05:20 05:20 08:15 WBC RBC Hgb Hct MCV MCH MCHC RDW Lymph % (Auto) Lymph # (Auto) Seg Neutrophils % Seg Neuts % (Manual) Lymphocytes % (Manual) Nucleated RBC % Seg Neutrophils # Seg Neutrophils # Man Lymphocytes # (Manual) Monocytes # (Manual) D-Dimer > 18133 H 5318.28 H ABG pH POC ABG pCO2 POC ABG pO2 ABG pO2 ABG HCO3 ABG O2 Saturation ABG Base Excess ABG Hemoglobin ABG Oxyhemoglobin ABG Sodium ABG Potassium ABG Chloride ABG Glucose Oxyhemoglobin Sodium Potassium Chloride Carbon Dioxide 32 H BUN 30 H Creatinine Glucose 156 H POC Glucose Lactic Acid Calcium Magnesium 2.60 H Ferritin Total Bilirubin 1.40 H Direct Bilirubin AST 121 H ALT 119 H Alkaline Phosphatase Lactate Dehydrogenase 957 H C-Reactive Protein 4.00 H Total Protein Albumin 3.0 L Triglycerides Arterial Blood Glucose Arterial Blood Ionized Calcium Urine WBC (Auto) Coronavirus (PCR) SARS-CoV-2 IgG Ab 05/15/20 05/15/20 05/15/20 08:15 08:15 08:15 WBC 12.4 H RBC Hgb Hct MCV 98 H MCH 33 H MCHC RDW Lymph % (Auto) 9.7 L Lymph # (Auto) Seg Neutrophils % 86.8 H Seg Neuts % (Manual) Lymphocytes % (Manual) Nucleated RBC % Seg Neutrophils # 10.8 H Seg Neutrophils # Man Lymphocytes # (Manual) Monocytes # (Manual) D-Dimer ABG pH POC ABG pCO2 POC ABG pO2 ABG pO2 ABG HCO3 ABG O2 Saturation ABG Base Excess ABG Hemoglobin ABG Oxyhemoglobin ABG Sodium ABG Potassium ABG Chloride ABG Glucose Oxyhemoglobin Sodium Potassium Chloride 94.8 L Carbon Dioxide 32 H BUN 22 H Creatinine Glucose 115 H POC Glucose Lactic Acid Calcium 8.3 L Magnesium Ferritin 2494.0 H Total Bilirubin Direct Bilirubin AST 73 H ALT 121 H Alkaline Phosphatase Lactate Dehydrogenase 835 H C-Reactive Protein 3.40 H Total Protein 6.1 L Albumin 3.0 L Triglycerides Arterial Blood Glucose Arterial Blood Ionized Calcium Urine WBC (Auto) Coronavirus (PCR) SARS-CoV-2 IgG Ab 05/17/20 05/17/20 05/17/20 05:50 05:50 05:50 WBC RBC Hgb Hct MCV MCH MCHC RDW Lymph % (Auto) Lymph # (Auto) Seg Neutrophils % Seg Neuts % (Manual) Lymphocytes % (Manual) Nucleated RBC % Seg Neutrophils # Seg Neutrophils # Man Lymphocytes # (Manual) Monocytes # (Manual) D-Dimer 2911.42 H ABG pH POC ABG pCO2 POC ABG pO2 ABG pO2 ABG HCO3 ABG O2 Saturation ABG Base Excess ABG Hemoglobin ABG Oxyhemoglobin ABG Sodium ABG Potassium ABG Chloride ABG Glucose Oxyhemoglobin Sodium 136 L Potassium Chloride 96.0 L Carbon Dioxide 34 H BUN 22 H Creatinine Glucose 140 H POC Glucose Lactic Acid Calcium Magnesium Ferritin 2082.0 H Total Bilirubin Direct Bilirubin AST ALT 75 H Alkaline Phosphatase Lactate Dehydrogenase 601 H C-Reactive Protein 2.70 H Total Protein Albumin 2.9 L Triglycerides Arterial Blood Glucose Arterial Blood Ionized Calcium Urine WBC (Auto) Coronavirus (PCR) SARS-CoV-2 IgG Ab 05/17/20 05/18/20 05/20/20 05:50 12:22 08:16 WBC RBC Hgb Hct MCV 98 H MCH 33 H MCHC RDW Lymph % (Auto) 8.0 L Lymph # (Auto) 0.8 L Seg Neutrophils % 89.3 H Seg Neuts % (Manual) Lymphocytes % (Manual) Nucleated RBC % Seg Neutrophils # 8.8 H Seg Neutrophils # Man Lymphocytes # (Manual) Monocytes # (Manual) D-Dimer 1887.82 H ABG pH POC ABG pCO2 POC ABG pO2 ABG pO2 ABG HCO3 ABG O2 Saturation ABG Base Excess ABG Hemoglobin ABG Oxyhemoglobin ABG Sodium ABG Potassium ABG Chloride ABG Glucose Oxyhemoglobin Sodium Potassium Chloride Carbon Dioxide BUN Creatinine Glucose POC Glucose 178 H Lactic Acid Calcium Magnesium Ferritin Total Bilirubin Direct Bilirubin AST ALT Alkaline Phosphatase Lactate Dehydrogenase C-Reactive Protein Total Protein Albumin Triglycerides Arterial Blood Glucose Arterial Blood Ionized Calcium Urine WBC (Auto) Coronavirus (PCR) SARS-CoV-2 IgG Ab 05/20/20 05/20/20 05/21/20 08:16 08:16 21:10 WBC RBC Hgb Hct MCV MCH MCHC RDW Lymph % (Auto) Lymph # (Auto) Seg Neutrophils % Seg Neuts % (Manual) Lymphocytes % (Manual) Nucleated RBC % Seg Neutrophils # Seg Neutrophils # Man Lymphocytes # (Manual) Monocytes # (Manual) D-Dimer ABG pH 7.483 H POC ABG pCO2 POC ABG pO2 ABG pO2 50.0 L ABG HCO3 27.0 H ABG O2 Saturation 86.2 L ABG Base Excess 3.7 H ABG Hemoglobin ABG Oxyhemoglobin ABG Sodium ABG Potassium ABG Chloride ABG Glucose Oxyhemoglobin 84.2 L Sodium Potassium Chloride Carbon Dioxide BUN Creatinine Glucose POC Glucose Lactic Acid Calcium Magnesium Ferritin 1960.0 H Total Bilirubin Direct Bilirubin AST ALT Alkaline Phosphatase Lactate Dehydrogenase 705 H C-Reactive Protein 3.10 H Total Protein Albumin Triglycerides Arterial Blood Glucose Arterial Blood Ionized Calcium Urine WBC (Auto) Coronavirus (PCR) SARS-CoV-2 IgG Ab 05/22/20 05/22/20 05/22/20 04:01 07:53 07:53 WBC 19.2 H RBC Hgb Hct MCV 98 H MCH 34 H MCHC RDW Lymph % (Auto) Lymph # (Auto) Seg Neutrophils % Seg Neuts % (Manual) 96.0 H Lymphocytes % (Manual) 1.0 L Nucleated RBC % Seg Neutrophils # Seg Neutrophils # Man 18.4 H Lymphocytes # (Manual) 0.2 L Monocytes # (Manual) D-Dimer ABG pH POC ABG pCO2 53.8 H POC ABG pO2 125.5 H ABG pO2 ABG HCO3 ABG O2 Saturation ABG Base Excess ABG Hemoglobin ABG Oxyhemoglobin ABG Sodium 131.8 L ABG Potassium 4.8 H ABG Chloride 94.0 L ABG Glucose 163 H Oxyhemoglobin Sodium 131 L Potassium Chloride 93.4 L Carbon Dioxide BUN 40 H Creatinine Glucose 176 H POC Glucose Lactic Acid Calcium Magnesium 2.70 H Ferritin Total Bilirubin 1.80 H Direct Bilirubin AST 45 H ALT 116 H Alkaline Phosphatase 181 H Lactate Dehydrogenase C-Reactive Protein Total Protein Albumin 2.6 L Triglycerides Arterial Blood Glucose 163 H Arterial Blood Ionized Calcium 4.5 L Urine WBC (Auto) Coronavirus (PCR) SARS-CoV-2 IgG Ab 05/23/20 05/24/20 05/24/20 04:17 03:07 04:08 WBC RBC Hgb Hct MCV MCH MCHC RDW Lymph % (Auto) Lymph # (Auto) Seg Neutrophils % Seg Neuts % (Manual) Lymphocytes % (Manual) Nucleated RBC % Seg Neutrophils # Seg Neutrophils # Man Lymphocytes # (Manual) Monocytes # (Manual) D-Dimer ABG pH 7.328 L POC ABG pCO2 POC ABG pO2 ABG pO2 72.8 L 73.4 L ABG HCO3 31.0 H 34.0 H ABG O2 Saturation 93.5 L ABG Base Excess 3.5 H 7.7 H ABG Hemoglobin 13.3 L 12.1 L ABG Oxyhemoglobin ABG Sodium ABG Potassium ABG Chloride ABG Glucose Oxyhemoglobin 91.5 L 94.3 L Sodium Potassium Chloride Carbon Dioxide BUN Creatinine Glucose POC Glucose 155 H Lactic Acid Calcium Magnesium Ferritin Total Bilirubin Direct Bilirubin AST ALT Alkaline Phosphatase Lactate Dehydrogenase C-Reactive Protein Total Protein Albumin Triglycerides Arterial Blood Glucose Arterial Blood Ionized Calcium Urine WBC (Auto) Coronavirus (PCR) SARS-CoV-2 IgG Ab 05/24/20 05/24/20 05/24/20 09:33 12:21 17:52 WBC RBC Hgb Hct MCV MCH MCHC RDW Lymph % (Auto) Lymph # (Auto) Seg Neutrophils % Seg Neuts % (Manual) Lymphocytes % (Manual) Nucleated RBC % Seg Neutrophils # Seg Neutrophils # Man Lymphocytes # (Manual) Monocytes # (Manual) D-Dimer ABG pH POC ABG pCO2 POC ABG pO2 ABG pO2 ABG HCO3 ABG O2 Saturation ABG Base Excess ABG Hemoglobin ABG Oxyhemoglobin ABG Sodium ABG Potassium ABG Chloride ABG Glucose Oxyhemoglobin Sodium Potassium Chloride Carbon Dioxide 34 H D BUN 28 H Creatinine 0.7 L Glucose 168 H POC Glucose 173 H 164 H Lactic Acid Calcium Magnesium Ferritin Total Bilirubin Direct Bilirubin AST ALT Alkaline Phosphatase Lactate Dehydrogenase C-Reactive Protein Total Protein Albumin Triglycerides Arterial Blood Glucose Arterial Blood Ionized Calcium Urine WBC (Auto) Coronavirus (PCR) SARS-CoV-2 IgG Ab 05/24/20 05/25/20 05/25/20 23:47 04:29 05:46 WBC RBC Hgb Hct MCV MCH MCHC RDW Lymph % (Auto) Lymph # (Auto) Seg Neutrophils % Seg Neuts % (Manual) Lymphocytes % (Manual) Nucleated RBC % Seg Neutrophils # Seg Neutrophils # Man Lymphocytes # (Manual) Monocytes # (Manual) D-Dimer ABG pH POC ABG pCO2 68.6 H POC ABG pO2 ABG pO2 ABG HCO3 ABG O2 Saturation ABG Base Excess ABG Hemoglobin ABG Oxyhemoglobin ABG Sodium ABG Potassium 4.7 H ABG Chloride ABG Glucose 226 H Oxyhemoglobin Sodium Potassium Chloride Carbon Dioxide BUN Creatinine Glucose POC Glucose 171 H 201 H Lactic Acid Calcium Magnesium Ferritin Total Bilirubin Direct Bilirubin AST ALT Alkaline Phosphatase Lactate Dehydrogenase C-Reactive Protein Total Protein Albumin Triglycerides Arterial Blood Glucose 226 H Arterial Blood Ionized Calcium Urine WBC (Auto) Coronavirus (PCR) SARS-CoV-2 IgG Ab 05/25/20 05/25/20 05/25/20 08:37 08:37 12:38 WBC 12.0 H RBC 3.64 L Hgb Hct MCV 99 H MCH 33 H MCHC RDW Lymph % (Auto) Lymph # (Auto) Seg Neutrophils % Seg Neuts % (Manual) Lymphocytes % (Manual) Nucleated RBC % Seg Neutrophils # Seg Neutrophils # Man Lymphocytes # (Manual) Monocytes # (Manual) D-Dimer ABG pH POC ABG pCO2 POC ABG pO2 ABG pO2 ABG HCO3 ABG O2 Saturation ABG Base Excess ABG Hemoglobin ABG Oxyhemoglobin ABG Sodium ABG Potassium ABG Chloride ABG Glucose Oxyhemoglobin Sodium Potassium Chloride 97.3 L Carbon Dioxide 35 H BUN 25 H Creatinine 0.7 L Glucose 191 H POC Glucose 182 H Lactic Acid Calcium Magnesium Ferritin Total Bilirubin Direct Bilirubin AST ALT Alkaline Phosphatase Lactate Dehydrogenase C-Reactive Protein Total Protein Albumin Triglycerides Arterial Blood Glucose Arterial Blood Ionized Calcium Urine WBC (Auto) Coronavirus (PCR) SARS-CoV-2 IgG Ab 05/25/20 05/26/20 05/26/20 18:16 00:06 04:50 WBC RBC Hgb Hct MCV MCH MCHC RDW Lymph % (Auto) Lymph # (Auto) Seg Neutrophils % Seg Neuts % (Manual) Lymphocytes % (Manual) Nucleated RBC % Seg Neutrophils # Seg Neutrophils # Man Lymphocytes # (Manual) Monocytes # (Manual) D-Dimer ABG pH POC ABG pCO2 POC ABG pO2 ABG pO2 221.5 H ABG HCO3 40.4 H ABG O2 Saturation 99.3 H ABG Base Excess 12.8 H ABG Hemoglobin 10.4 L ABG Oxyhemoglobin ABG Sodium ABG Potassium ABG Chloride ABG Glucose Oxyhemoglobin Sodium Potassium Chloride Carbon Dioxide BUN Creatinine Glucose POC Glucose 176 H 152 H Lactic Acid Calcium Magnesium Ferritin Total Bilirubin Direct Bilirubin AST ALT Alkaline Phosphatase Lactate Dehydrogenase C-Reactive Protein Total Protein Albumin Triglycerides Arterial Blood Glucose Arterial Blood Ionized Calcium Urine WBC (Auto) Coronavirus (PCR) SARS-CoV-2 IgG Ab 05/26/20 05/26/20 05/26/20 06:11 07:51 07:51 WBC 13.4 H RBC 3.64 L Hgb Hct MCV 98 H MCH 33 H MCHC RDW Lymph % (Auto) Lymph # (Auto) Seg Neutrophils % Seg Neuts % (Manual) Lymphocytes % (Manual) Nucleated RBC % Seg Neutrophils # Seg Neutrophils # Man Lymphocytes # (Manual) Monocytes # (Manual) D-Dimer ABG pH POC ABG pCO2 POC ABG pO2 ABG pO2 ABG HCO3 ABG O2 Saturation ABG Base Excess ABG Hemoglobin ABG Oxyhemoglobin ABG Sodium ABG Potassium ABG Chloride ABG Glucose Oxyhemoglobin Sodium Potassium Chloride 96.6 L Carbon Dioxide 39 H BUN 29 H Creatinine 0.7 L Glucose 174 H POC Glucose 165 H Lactic Acid Calcium Magnesium Ferritin Total Bilirubin Direct Bilirubin AST ALT Alkaline Phosphatase Lactate Dehydrogenase C-Reactive Protein Total Protein Albumin Triglycerides Arterial Blood Glucose Arterial Blood Ionized Calcium Urine WBC (Auto) Coronavirus (PCR) SARS-CoV-2 IgG Ab 05/26/20 05/27/20 05/27/20 23:23 03:43 05:29 WBC RBC Hgb Hct MCV MCH MCHC RDW Lymph % (Auto) Lymph # (Auto) Seg Neutrophils % Seg Neuts % (Manual) Lymphocytes % (Manual) Nucleated RBC % Seg Neutrophils # Seg Neutrophils # Man Lymphocytes # (Manual) Monocytes # (Manual) D-Dimer ABG pH 7.480 H POC ABG pCO2 52.4 H POC ABG pO2 61.4 L ABG pO2 ABG HCO3 ABG O2 Saturation ABG Base Excess ABG Hemoglobin ABG Oxyhemoglobin ABG Sodium 134.9 L ABG Potassium ABG Chloride 95.0 L ABG Glucose 221 H Oxyhemoglobin Sodium Potassium Chloride Carbon Dioxide BUN Creatinine Glucose POC Glucose 169 H 227 H Lactic Acid Calcium Magnesium Ferritin Total Bilirubin Direct Bilirubin AST ALT Alkaline Phosphatase Lactate Dehydrogenase C-Reactive Protein Total Protein Albumin Triglycerides Arterial Blood Glucose 221 H Arterial Blood Ionized Calcium 4.5 L Urine WBC (Auto) Coronavirus (PCR) SARS-CoV-2 IgG Ab 05/27/20 05/27/20 05/27/20 07:19 12:18 13:50 WBC RBC Hgb Hct MCV MCH MCHC RDW Lymph % (Auto) Lymph # (Auto) Seg Neutrophils % Seg Neuts % (Manual) Lymphocytes % (Manual) Nucleated RBC % Seg Neutrophils # Seg Neutrophils # Man Lymphocytes # (Manual) Monocytes # (Manual) D-Dimer ABG pH POC ABG pCO2 POC ABG pO2 ABG pO2 ABG HCO3 ABG O2 Saturation ABG Base Excess ABG Hemoglobin ABG Oxyhemoglobin ABG Sodium ABG Potassium ABG Chloride ABG Glucose Oxyhemoglobin Sodium Potassium Chloride Carbon Dioxide BUN Creatinine Glucose POC Glucose 114 H 148 H Lactic Acid Calcium Magnesium Ferritin Total Bilirubin Direct Bilirubin AST ALT Alkaline Phosphatase Lactate Dehydrogenase C-Reactive Protein Total Protein Albumin Triglycerides 247 H Arterial Blood Glucose Arterial Blood Ionized Calcium Urine WBC (Auto) Coronavirus (PCR) SARS-CoV-2 IgG Ab 05/28/20 05/28/20 05/28/20 00:13 04:16 05:22 WBC RBC Hgb Hct MCV MCH MCHC RDW Lymph % (Auto) Lymph # (Auto) Seg Neutrophils % Seg Neuts % (Manual) Lymphocytes % (Manual) Nucleated RBC % Seg Neutrophils # Seg Neutrophils # Man Lymphocytes # (Manual) Monocytes # (Manual) D-Dimer ABG pH POC ABG pCO2 64.4 H POC ABG pO2 60.5 L ABG pO2 ABG HCO3 ABG O2 Saturation ABG Base Excess ABG Hemoglobin ABG Oxyhemoglobin ABG Sodium ABG Potassium ABG Chloride 95.0 L ABG Glucose 209 H Oxyhemoglobin Sodium Potassium Chloride Carbon Dioxide BUN Creatinine Glucose POC Glucose 155 H 186 H Lactic Acid Calcium Magnesium Ferritin Total Bilirubin Direct Bilirubin AST ALT Alkaline Phosphatase Lactate Dehydrogenase C-Reactive Protein Total Protein Albumin Triglycerides Arterial Blood Glucose 209 H Arterial Blood Ionized Calcium Urine WBC (Auto) Coronavirus (PCR) SARS-CoV-2 IgG Ab 05/28/20 05/28/20 05/29/20 12:45 17:39 00:37 WBC RBC Hgb Hct MCV MCH MCHC RDW Lymph % (Auto) Lymph # (Auto) Seg Neutrophils % Seg Neuts % (Manual) Lymphocytes % (Manual) Nucleated RBC % Seg Neutrophils # Seg Neutrophils # Man Lymphocytes # (Manual) Monocytes # (Manual) D-Dimer ABG pH POC ABG pCO2 POC ABG pO2 ABG pO2 ABG HCO3 ABG O2 Saturation ABG Base Excess ABG Hemoglobin ABG Oxyhemoglobin ABG Sodium ABG Potassium ABG Chloride ABG Glucose Oxyhemoglobin Sodium Potassium Chloride Carbon Dioxide BUN Creatinine Glucose POC Glucose 143 H 164 H 221 H Lactic Acid Calcium Magnesium Ferritin Total Bilirubin Direct Bilirubin AST ALT Alkaline Phosphatase Lactate Dehydrogenase C-Reactive Protein Total Protein Albumin Triglycerides Arterial Blood Glucose Arterial Blood Ionized Calcium Urine WBC (Auto) Coronavirus (PCR) SARS-CoV-2 IgG Ab 05/29/20 05/29/20 05/29/20 04:15 05:33 12:34 WBC RBC Hgb Hct MCV MCH MCHC RDW Lymph % (Auto) Lymph # (Auto) Seg Neutrophils % Seg Neuts % (Manual) Lymphocytes % (Manual) Nucleated RBC % Seg Neutrophils # Seg Neutrophils # Man Lymphocytes # (Manual) Monocytes # (Manual) D-Dimer ABG pH 7.463 H POC ABG pCO2 56.3 H POC ABG pO2 81.2 L ABG pO2 ABG HCO3 ABG O2 Saturation ABG Base Excess ABG Hemoglobin ABG Oxyhemoglobin ABG Sodium ABG Potassium ABG Chloride 96.0 L ABG Glucose 194 H Oxyhemoglobin Sodium Potassium Chloride Carbon Dioxide BUN Creatinine Glucose POC Glucose 133 H 221 H Lactic Acid Calcium Magnesium Ferritin Total Bilirubin Direct Bilirubin AST ALT Alkaline Phosphatase Lactate Dehydrogenase C-Reactive Protein Total Protein Albumin Triglycerides Arterial Blood Glucose 194 H Arterial Blood Ionized Calcium 4.5 L Urine WBC (Auto) Coronavirus (PCR) SARS-CoV-2 IgG Ab 05/29/20 05/30/20 05/30/20 18:07 00:12 05:38 WBC RBC Hgb Hct MCV MCH MCHC RDW Lymph % (Auto) Lymph # (Auto) Seg Neutrophils % Seg Neuts % (Manual) Lymphocytes % (Manual) Nucleated RBC % Seg Neutrophils # Seg Neutrophils # Man Lymphocytes # (Manual) Monocytes # (Manual) D-Dimer ABG pH POC ABG pCO2 POC ABG pO2 ABG pO2 ABG HCO3 ABG O2 Saturation ABG Base Excess ABG Hemoglobin ABG Oxyhemoglobin ABG Sodium ABG Potassium ABG Chloride ABG Glucose Oxyhemoglobin Sodium Potassium Chloride Carbon Dioxide BUN Creatinine Glucose POC Glucose 162 H 190 H 208 H Lactic Acid Calcium Magnesium Ferritin Total Bilirubin Direct Bilirubin AST ALT Alkaline Phosphatase Lactate Dehydrogenase C-Reactive Protein Total Protein Albumin Triglycerides Arterial Blood Glucose Arterial Blood Ionized Calcium Urine WBC (Auto) Coronavirus (PCR) SARS-CoV-2 IgG Ab 05/30/20 05/30/20 05/30/20 09:30 11:35 11:54 WBC 12.4 H RBC 3.48 L Hgb 11.3 L Hct 34.6 L MCV 99 H MCH 33 H MCHC RDW Lymph % (Auto) Lymph # (Auto) Seg Neutrophils % Seg Neuts % (Manual) Lymphocytes % (Manual) Nucleated RBC % Seg Neutrophils # Seg Neutrophils # Man Lymphocytes # (Manual) Monocytes # (Manual) D-Dimer ABG pH 7.455 H POC ABG pCO2 57.5 H POC ABG pO2 81.5 L ABG pO2 ABG HCO3 ABG O2 Saturation ABG Base Excess ABG Hemoglobin ABG Oxyhemoglobin ABG Sodium ABG Potassium ABG Chloride 96.0 L ABG Glucose 204 H Oxyhemoglobin Sodium Potassium Chloride Carbon Dioxide BUN Creatinine Glucose POC Glucose 183 H Lactic Acid Calcium Magnesium Ferritin Total Bilirubin Direct Bilirubin AST ALT Alkaline Phosphatase Lactate Dehydrogenase C-Reactive Protein Total Protein Albumin Triglycerides Arterial Blood Glucose 204 H Arterial Blood Ionized Calcium Urine WBC (Auto) Coronavirus (PCR) SARS-CoV-2 IgG Ab 05/30/20 05/31/20 05/31/20 18:01 00:10 03:22 WBC RBC Hgb Hct MCV MCH MCHC RDW Lymph % (Auto) Lymph # (Auto) Seg Neutrophils % Seg Neuts % (Manual) Lymphocytes % (Manual) Nucleated RBC % Seg Neutrophils # Seg Neutrophils # Man Lymphocytes # (Manual) Monocytes # (Manual) D-Dimer ABG pH POC ABG pCO2 60.4 H POC ABG pO2 71.5 L ABG pO2 ABG HCO3 ABG O2 Saturation ABG Base Excess ABG Hemoglobin ABG Oxyhemoglobin ABG Sodium ABG Potassium ABG Chloride 96.0 L ABG Glucose 169 H Oxyhemoglobin Sodium Potassium Chloride Carbon Dioxide BUN Creatinine Glucose POC Glucose 184 H 135 H Lactic Acid Calcium Magnesium Ferritin Total Bilirubin Direct Bilirubin AST ALT Alkaline Phosphatase Lactate Dehydrogenase C-Reactive Protein Total Protein Albumin Triglycerides Arterial Blood Glucose 169 H Arterial Blood Ionized Calcium 4.5 L Urine WBC (Auto) Coronavirus (PCR) SARS-CoV-2 IgG Ab 05/31/20 05/31/20 05/31/20 05:24 11:18 14:41 WBC RBC Hgb Hct MCV MCH MCHC RDW Lymph % (Auto) Lymph # (Auto) Seg Neutrophils % Seg Neuts % (Manual) Lymphocytes % (Manual) Nucleated RBC % Seg Neutrophils # Seg Neutrophils # Man Lymphocytes # (Manual) Monocytes # (Manual) D-Dimer ABG pH POC ABG pCO2 POC ABG pO2 ABG pO2 ABG HCO3 ABG O2 Saturation ABG Base Excess ABG Hemoglobin ABG Oxyhemoglobin ABG Sodium ABG Potassium ABG Chloride ABG Glucose Oxyhemoglobin Sodium Potassium Chloride 96.8 L Carbon Dioxide 37 H BUN 31 H Creatinine 0.6 L Glucose 213 H POC Glucose 164 H 208 H Lactic Acid Calcium Magnesium Ferritin Total Bilirubin Direct Bilirubin AST ALT Alkaline Phosphatase Lactate Dehydrogenase C-Reactive Protein Total Protein Albumin Triglycerides Arterial Blood Glucose Arterial Blood Ionized Calcium Urine WBC (Auto) Coronavirus (PCR) SARS-CoV-2 IgG Ab 05/31/20 05/31/20 06/01/20 17:37 23:47 03:48 WBC RBC Hgb Hct MCV MCH MCHC RDW Lymph % (Auto) Lymph # (Auto) Seg Neutrophils % Seg Neuts % (Manual) Lymphocytes % (Manual) Nucleated RBC % Seg Neutrophils # Seg Neutrophils # Man Lymphocytes # (Manual) Monocytes # (Manual) D-Dimer ABG pH POC ABG pCO2 59.7 H POC ABG pO2 73.9 L ABG pO2 ABG HCO3 ABG O2 Saturation ABG Base Excess ABG Hemoglobin ABG Oxyhemoglobin ABG Sodium ABG Potassium ABG Chloride 95.0 L ABG Glucose 256 H Oxyhemoglobin Sodium Potassium Chloride Carbon Dioxide BUN Creatinine Glucose POC Glucose 168 H 178 H Lactic Acid Calcium Magnesium Ferritin Total Bilirubin Direct Bilirubin AST ALT Alkaline Phosphatase Lactate Dehydrogenase C-Reactive Protein Total Protein Albumin Triglycerides Arterial Blood Glucose 256 H Arterial Blood Ionized Calcium Urine WBC (Auto) Coronavirus (PCR) SARS-CoV-2 IgG Ab 06/01/20 06/01/20 06/01/20 05:01 07:47 07:47 WBC 14.4 H RBC 3.46 L Hgb 11.1 L Hct 34.3 L MCV 99 H MCH MCHC RDW Lymph % (Auto) Lymph # (Auto) Seg Neutrophils % Seg Neuts % (Manual) 86.0 H Lymphocytes % (Manual) 9.0 L Nucleated RBC % Seg Neutrophils # Seg Neutrophils # Man 12.4 H Lymphocytes # (Manual) Monocytes # (Manual) D-Dimer ABG pH POC ABG pCO2 POC ABG pO2 ABG pO2 ABG HCO3 ABG O2 Saturation ABG Base Excess ABG Hemoglobin ABG Oxyhemoglobin ABG Sodium ABG Potassium ABG Chloride ABG Glucose Oxyhemoglobin Sodium Potassium Chloride Carbon Dioxide BUN Creatinine Glucose POC Glucose 197 H Lactic Acid Calcium Magnesium Ferritin Total Bilirubin Direct Bilirubin AST ALT Alkaline Phosphatase Lactate Dehydrogenase C-Reactive Protein Total Protein Albumin Triglycerides 244 H Arterial Blood Glucose Arterial Blood Ionized Calcium Urine WBC (Auto) Coronavirus (PCR) SARS-CoV-2 IgG Ab 06/01/20 06/01/20 06/01/20 07:47 11:46 18:15 WBC RBC Hgb Hct MCV MCH MCHC RDW Lymph % (Auto) Lymph # (Auto) Seg Neutrophils % Seg Neuts % (Manual) Lymphocytes % (Manual) Nucleated RBC % Seg Neutrophils # Seg Neutrophils # Man Lymphocytes # (Manual) Monocytes # (Manual) D-Dimer ABG pH POC ABG pCO2 POC ABG pO2 ABG pO2 ABG HCO3 ABG O2 Saturation ABG Base Excess ABG Hemoglobin ABG Oxyhemoglobin ABG Sodium ABG Potassium ABG Chloride ABG Glucose Oxyhemoglobin Sodium Potassium Chloride 95.4 L Carbon Dioxide 35 H BUN 30 H Creatinine 0.5 L Glucose 214 H POC Glucose 181 H 221 H Lactic Acid Calcium Magnesium Ferritin Total Bilirubin Direct Bilirubin AST 54 H ALT 235 H Alkaline Phosphatase Lactate Dehydrogenase C-Reactive Protein Total Protein Albumin 2.9 L Triglycerides Arterial Blood Glucose Arterial Blood Ionized Calcium Urine WBC (Auto) Coronavirus (PCR) SARS-CoV-2 IgG Ab 06/01/20 06/02/20 06/02/20 23:12 04:00 05:31 WBC RBC Hgb Hct MCV MCH MCHC RDW Lymph % (Auto) Lymph # (Auto) Seg Neutrophils % Seg Neuts % (Manual) Lymphocytes % (Manual) Nucleated RBC % Seg Neutrophils # Seg Neutrophils # Man Lymphocytes # (Manual) Monocytes # (Manual) D-Dimer ABG pH 7.465 H POC ABG pCO2 POC ABG pO2 ABG pO2 203.4 H ABG HCO3 41.2 H ABG O2 Saturation 99.3 H ABG Base Excess 15.1 H ABG Hemoglobin 11.5 L ABG Oxyhemoglobin ABG Sodium ABG Potassium ABG Chloride ABG Glucose Oxyhemoglobin Sodium Potassium Chloride Carbon Dioxide BUN Creatinine Glucose POC Glucose 197 H 184 H Lactic Acid Calcium Magnesium Ferritin Total Bilirubin Direct Bilirubin AST ALT Alkaline Phosphatase Lactate Dehydrogenase C-Reactive Protein Total Protein Albumin Triglycerides Arterial Blood Glucose Arterial Blood Ionized Calcium Urine WBC (Auto) Coronavirus (PCR) SARS-CoV-2 IgG Ab 06/02/20 06/02/20 06/02/20 11:49 18:06 23:00 WBC RBC Hgb Hct MCV MCH MCHC RDW Lymph % (Auto) Lymph # (Auto) Seg Neutrophils % Seg Neuts % (Manual) Lymphocytes % (Manual) Nucleated RBC % Seg Neutrophils # Seg Neutrophils # Man Lymphocytes # (Manual) Monocytes # (Manual) D-Dimer ABG pH POC ABG pCO2 POC ABG pO2 ABG pO2 ABG HCO3 ABG O2 Saturation ABG Base Excess ABG Hemoglobin ABG Oxyhemoglobin ABG Sodium ABG Potassium ABG Chloride ABG Glucose Oxyhemoglobin Sodium Potassium Chloride Carbon Dioxide BUN Creatinine Glucose POC Glucose 195 H 177 H 228 H Lactic Acid Calcium Magnesium Ferritin Total Bilirubin Direct Bilirubin AST ALT Alkaline Phosphatase Lactate Dehydrogenase C-Reactive Protein Total Protein Albumin Triglycerides Arterial Blood Glucose Arterial Blood Ionized Calcium Urine WBC (Auto) Coronavirus (PCR) SARS-CoV-2 IgG Ab 06/03/20 06/03/20 06/03/20 03:58 05:19 12:21 WBC RBC Hgb Hct MCV MCH MCHC RDW Lymph % (Auto) Lymph # (Auto) Seg Neutrophils % Seg Neuts % (Manual) Lymphocytes % (Manual) Nucleated RBC % Seg Neutrophils # Seg Neutrophils # Man Lymphocytes # (Manual) Monocytes # (Manual) D-Dimer ABG pH POC ABG pCO2 POC ABG pO2 ABG pO2 171.0 H ABG HCO3 42.8 H ABG O2 Saturation ABG Base Excess 15.6 H ABG Hemoglobin 12.3 L ABG Oxyhemoglobin ABG Sodium ABG Potassium ABG Chloride ABG Glucose Oxyhemoglobin Sodium Potassium Chloride Carbon Dioxide BUN Creatinine Glucose POC Glucose 122 H 207 H Lactic Acid Calcium Magnesium Ferritin Total Bilirubin Direct Bilirubin AST ALT Alkaline Phosphatase Lactate Dehydrogenase C-Reactive Protein Total Protein Albumin Triglycerides Arterial Blood Glucose Arterial Blood Ionized Calcium Urine WBC (Auto) Coronavirus (PCR) SARS-CoV-2 IgG Ab 06/03/20 06/03/20 06/04/20 17:27 23:50 03:55 WBC RBC Hgb Hct MCV MCH MCHC RDW Lymph % (Auto) Lymph # (Auto) Seg Neutrophils % Seg Neuts % (Manual) Lymphocytes % (Manual) Nucleated RBC % Seg Neutrophils # Seg Neutrophils # Man Lymphocytes # (Manual) Monocytes # (Manual) D-Dimer ABG pH POC ABG pCO2 POC ABG pO2 ABG pO2 117.2 H ABG HCO3 42.4 H ABG O2 Saturation ABG Base Excess 15.3 H ABG Hemoglobin 10.5 L ABG Oxyhemoglobin ABG Sodium ABG Potassium ABG Chloride ABG Glucose Oxyhemoglobin Sodium Potassium Chloride Carbon Dioxide BUN Creatinine Glucose POC Glucose 157 H 214 H Lactic Acid Calcium Magnesium Ferritin Total Bilirubin Direct Bilirubin AST ALT Alkaline Phosphatase Lactate Dehydrogenase C-Reactive Protein Total Protein Albumin Triglycerides Arterial Blood Glucose Arterial Blood Ionized Calcium Urine WBC (Auto) Coronavirus (PCR) SARS-CoV-2 IgG Ab 06/04/20 06/04/20 06/04/20 05:49 11:41 17:30 WBC RBC Hgb Hct MCV MCH MCHC RDW Lymph % (Auto) Lymph # (Auto) Seg Neutrophils % Seg Neuts % (Manual) Lymphocytes % (Manual) Nucleated RBC % Seg Neutrophils # Seg Neutrophils # Man Lymphocytes # (Manual) Monocytes # (Manual) D-Dimer ABG pH POC ABG pCO2 POC ABG pO2 ABG pO2 ABG HCO3 ABG O2 Saturation ABG Base Excess ABG Hemoglobin ABG Oxyhemoglobin ABG Sodium ABG Potassium ABG Chloride ABG Glucose Oxyhemoglobin Sodium Potassium Chloride Carbon Dioxide BUN Creatinine Glucose POC Glucose 149 H 233 H 156 H Lactic Acid Calcium Magnesium Ferritin Total Bilirubin Direct Bilirubin AST ALT Alkaline Phosphatase Lactate Dehydrogenase C-Reactive Protein Total Protein Albumin Triglycerides Arterial Blood Glucose Arterial Blood Ionized Calcium Urine WBC (Auto) Coronavirus (PCR) SARS-CoV-2 IgG Ab 06/04/20 06/04/20 06/04/20 19:01 20:53 23:41 WBC RBC 3.18 L Hgb 10.8 L Hct 31.8 L MCV 100 H MCH 34 H MCHC RDW Lymph % (Auto) Lymph # (Auto) Seg Neutrophils % Seg Neuts % (Manual) 86.0 H Lymphocytes % (Manual) 10.0 L Nucleated RBC % 1.0 H Seg Neutrophils # Seg Neutrophils # Man 8.5 H Lymphocytes # (Manual) 1.0 L Monocytes # (Manual) D-Dimer ABG pH POC ABG pCO2 POC ABG pO2 ABG pO2 ABG HCO3 ABG O2 Saturation ABG Base Excess ABG Hemoglobin ABG Oxyhemoglobin ABG Sodium ABG Potassium ABG Chloride ABG Glucose Oxyhemoglobin Sodium Potassium 3.4 L D Chloride 96.5 L Carbon Dioxide 41 H* BUN 27 H Creatinine 0.5 L Glucose 173 H POC Glucose 217 H Lactic Acid Calcium Magnesium Ferritin Total Bilirubin Direct Bilirubin AST ALT Alkaline Phosphatase Lactate Dehydrogenase C-Reactive Protein Total Protein Albumin Triglycerides Arterial Blood Glucose Arterial Blood Ionized Calcium Urine WBC (Auto) Coronavirus (PCR) SARS-CoV-2 IgG Ab 06/05/20 06/05/20 06/05/20 06:05 11:54 12:35 WBC RBC Hgb Hct MCV MCH MCHC RDW Lymph % (Auto) Lymph # (Auto) Seg Neutrophils % Seg Neuts % (Manual) Lymphocytes % (Manual) Nucleated RBC % Seg Neutrophils # Seg Neutrophils # Man Lymphocytes # (Manual) Monocytes # (Manual) D-Dimer ABG pH POC ABG pCO2 POC ABG pO2 ABG pO2 127.9 H ABG HCO3 41.1 H ABG O2 Saturation ABG Base Excess 13.0 H ABG Hemoglobin 13.4 L ABG Oxyhemoglobin ABG Sodium ABG Potassium ABG Chloride ABG Glucose Oxyhemoglobin Sodium Potassium Chloride Carbon Dioxide BUN Creatinine Glucose POC Glucose 137 H 211 H Lactic Acid Calcium Magnesium Ferritin Total Bilirubin Direct Bilirubin AST ALT Alkaline Phosphatase Lactate Dehydrogenase C-Reactive Protein Total Protein Albumin Triglycerides Arterial Blood Glucose Arterial Blood Ionized Calcium Urine WBC (Auto) Coronavirus (PCR) SARS-CoV-2 IgG Ab 06/05/20 06/05/20 06/06/20 17:03 23:49 04:42 WBC RBC Hgb Hct MCV MCH MCHC RDW Lymph % (Auto) Lymph # (Auto) Seg Neutrophils % Seg Neuts % (Manual) Lymphocytes % (Manual) Nucleated RBC % Seg Neutrophils # Seg Neutrophils # Man Lymphocytes # (Manual) Monocytes # (Manual) D-Dimer ABG pH POC ABG pCO2 56.1 H POC ABG pO2 52.5 L ABG pO2 ABG HCO3 ABG O2 Saturation ABG Base Excess ABG Hemoglobin 11.7 L ABG Oxyhemoglobin ABG Sodium ABG Potassium 3.3 L ABG Chloride 95.0 L ABG Glucose 156 H Oxyhemoglobin Sodium Potassium Chloride Carbon Dioxide BUN Creatinine Glucose POC Glucose 159 H 194 H Lactic Acid Calcium Magnesium Ferritin Total Bilirubin Direct Bilirubin AST ALT Alkaline Phosphatase Lactate Dehydrogenase C-Reactive Protein Total Protein Albumin Triglycerides Arterial Blood Glucose 156 H Arterial Blood Ionized Calcium Urine WBC (Auto) Coronavirus (PCR) SARS-CoV-2 IgG Ab 06/06/20 06/06/20 06/06/20 05:57 12:06 17:38 WBC RBC Hgb Hct MCV MCH MCHC RDW Lymph % (Auto) Lymph # (Auto) Seg Neutrophils % Seg Neuts % (Manual) Lymphocytes % (Manual) Nucleated RBC % Seg Neutrophils # Seg Neutrophils # Man Lymphocytes # (Manual) Monocytes # (Manual) D-Dimer ABG pH POC ABG pCO2 POC ABG pO2 ABG pO2 ABG HCO3 ABG O2 Saturation ABG Base Excess ABG Hemoglobin ABG Oxyhemoglobin ABG Sodium ABG Potassium ABG Chloride ABG Glucose Oxyhemoglobin Sodium Potassium Chloride Carbon Dioxide BUN Creatinine Glucose POC Glucose 144 H 230 H 162 H Lactic Acid Calcium Magnesium Ferritin Total Bilirubin Direct Bilirubin AST ALT Alkaline Phosphatase Lactate Dehydrogenase C-Reactive Protein Total Protein Albumin Triglycerides Arterial Blood Glucose Arterial Blood Ionized Calcium Urine WBC (Auto) Coronavirus (PCR) SARS-CoV-2 IgG Ab 06/06/20 06/07/20 06/07/20 23:50 04:34 06:03 WBC RBC Hgb Hct MCV MCH MCHC RDW Lymph % (Auto) Lymph # (Auto) Seg Neutrophils % Seg Neuts % (Manual) Lymphocytes % (Manual) Nucleated RBC % Seg Neutrophils # Seg Neutrophils # Man Lymphocytes # (Manual) Monocytes # (Manual) D-Dimer ABG pH 7.511 H POC ABG pCO2 53.5 H POC ABG pO2 114.5 H ABG pO2 ABG HCO3 ABG O2 Saturation ABG Base Excess ABG Hemoglobin 9.4 L ABG Oxyhemoglobin ABG Sodium 134.5 L ABG Potassium ABG Chloride 94.0 L ABG Glucose 186 H Oxyhemoglobin Sodium Potassium Chloride Carbon Dioxide BUN Creatinine Glucose POC Glucose 181 H 155 H Lactic Acid Calcium Magnesium Ferritin Total Bilirubin Direct Bilirubin AST ALT Alkaline Phosphatase Lactate Dehydrogenase C-Reactive Protein Total Protein Albumin Triglycerides Arterial Blood Glucose 186 H Arterial Blood Ionized Calcium 4.5 L Urine WBC (Auto) Coronavirus (PCR) SARS-CoV-2 IgG Ab 06/07/20 06/07/20 06/07/20 13:41 14:58 14:58 WBC RBC 2.72 L Hgb 9.3 L Hct 27.2 L MCV 100 H MCH 34 H MCHC RDW Lymph % (Auto) Lymph # (Auto) Seg Neutrophils % Seg Neuts % (Manual) Lymphocytes % (Manual) Nucleated RBC % Seg Neutrophils # Seg Neutrophils # Man Lymphocytes # (Manual) Monocytes # (Manual) D-Dimer ABG pH POC ABG pCO2 POC ABG pO2 ABG pO2 ABG HCO3 ABG O2 Saturation ABG Base Excess ABG Hemoglobin ABG Oxyhemoglobin ABG Sodium ABG Potassium ABG Chloride ABG Glucose Oxyhemoglobin Sodium Potassium Chloride 93.5 L Carbon Dioxide 39 H BUN 22 H Creatinine 0.4 L Glucose 188 H POC Glucose 201 H Lactic Acid Calcium Magnesium Ferritin Total Bilirubin Direct Bilirubin AST 61 H ALT 273 H Alkaline Phosphatase Lactate Dehydrogenase C-Reactive Protein Total Protein 5.9 L Albumin 2.7 L Triglycerides Arterial Blood Glucose Arterial Blood Ionized Calcium Urine WBC (Auto) Coronavirus (PCR) SARS-CoV-2 IgG Ab 06/07/20 06/08/20 06/08/20 23:18 05:31 12:07 WBC RBC Hgb Hct MCV MCH MCHC RDW Lymph % (Auto) Lymph # (Auto) Seg Neutrophils % Seg Neuts % (Manual) Lymphocytes % (Manual) Nucleated RBC % Seg Neutrophils # Seg Neutrophils # Man Lymphocytes # (Manual) Monocytes # (Manual) D-Dimer ABG pH POC ABG pCO2 POC ABG pO2 ABG pO2 ABG HCO3 ABG O2 Saturation ABG Base Excess ABG Hemoglobin ABG Oxyhemoglobin ABG Sodium ABG Potassium ABG Chloride ABG Glucose Oxyhemoglobin Sodium Potassium Chloride Carbon Dioxide BUN Creatinine Glucose POC Glucose 214 H 129 H 179 H Lactic Acid Calcium Magnesium Ferritin Total Bilirubin Direct Bilirubin AST ALT Alkaline Phosphatase Lactate Dehydrogenase C-Reactive Protein Total Protein Albumin Triglycerides Arterial Blood Glucose Arterial Blood Ionized Calcium Urine WBC (Auto) Coronavirus (PCR) SARS-CoV-2 IgG Ab 06/08/20 06/08/20 06/09/20 18:18 23:35 05:42 WBC RBC Hgb Hct MCV MCH MCHC RDW Lymph % (Auto) Lymph # (Auto) Seg Neutrophils % Seg Neuts % (Manual) Lymphocytes % (Manual) Nucleated RBC % Seg Neutrophils # Seg Neutrophils # Man Lymphocytes # (Manual) Monocytes # (Manual) D-Dimer ABG pH POC ABG pCO2 POC ABG pO2 ABG pO2 ABG HCO3 ABG O2 Saturation ABG Base Excess ABG Hemoglobin ABG Oxyhemoglobin ABG Sodium ABG Potassium ABG Chloride ABG Glucose Oxyhemoglobin Sodium Potassium Chloride Carbon Dioxide BUN Creatinine Glucose POC Glucose 172 H 177 H 137 H Lactic Acid Calcium Magnesium Ferritin Total Bilirubin Direct Bilirubin AST ALT Alkaline Phosphatase Lactate Dehydrogenase C-Reactive Protein Total Protein Albumin Triglycerides Arterial Blood Glucose Arterial Blood Ionized Calcium Urine WBC (Auto) Coronavirus (PCR) SARS-CoV-2 IgG Ab 06/09/20 06/09/20 06/09/20 06:20 07:55 07:55 WBC 12.4 H RBC 3.26 L Hgb 11.1 L Hct 33.4 L D MCV 102 H MCH 34 H MCHC RDW Lymph % (Auto) Lymph # (Auto) Seg Neutrophils % Seg Neuts % (Manual) Lymphocytes % (Manual) Nucleated RBC % Seg Neutrophils # Seg Neutrophils # Man Lymphocytes # (Manual) Monocytes # (Manual) D-Dimer ABG pH 7.466 H POC ABG pCO2 50.7 H POC ABG pO2 53.0 L ABG pO2 ABG HCO3 ABG O2 Saturation ABG Base Excess ABG Hemoglobin ABG Oxyhemoglobin ABG Sodium ABG Potassium 2.9 L ABG Chloride 93.0 L ABG Glucose 138 H Oxyhemoglobin Sodium Potassium 3.0 L Chloride 92.3 L Carbon Dioxide 37 H BUN 21 H Creatinine 0.6 L Glucose 120 H POC Glucose Lactic Acid Calcium Magnesium Ferritin Total Bilirubin Direct Bilirubin AST ALT Alkaline Phosphatase Lactate Dehydrogenase C-Reactive Protein Total Protein Albumin Triglycerides Arterial Blood Glucose 138 H Arterial Blood Ionized Calcium 4.5 L Urine WBC (Auto) Coronavirus (PCR) SARS-CoV-2 IgG Ab 06/09/20 06/09/20 06/10/20 11:22 18:32 04:46 WBC RBC Hgb Hct MCV MCH MCHC RDW Lymph % (Auto) Lymph # (Auto) Seg Neutrophils % Seg Neuts % (Manual) Lymphocytes % (Manual) Nucleated RBC % Seg Neutrophils # Seg Neutrophils # Man Lymphocytes # (Manual) Monocytes # (Manual) D-Dimer ABG pH 7.501 H POC ABG pCO2 POC ABG pO2 126.5 H ABG pO2 ABG HCO3 ABG O2 Saturation ABG Base Excess ABG Hemoglobin 10.3 L ABG Oxyhemoglobin ABG Sodium ABG Potassium ABG Chloride ABG Glucose 220 H Oxyhemoglobin Sodium Potassium Chloride Carbon Dioxide BUN Creatinine Glucose POC Glucose 117 H 121 H Lactic Acid Calcium Magnesium Ferritin Total Bilirubin Direct Bilirubin AST ALT Alkaline Phosphatase Lactate Dehydrogenase C-Reactive Protein Total Protein Albumin Triglycerides Arterial Blood Glucose 220 H Arterial Blood Ionized Calcium Urine WBC (Auto) Coronavirus (PCR) SARS-CoV-2 IgG Ab 06/10/20 06/10/20 06/10/20 05:30 09:38 12:03 WBC RBC Hgb Hct MCV MCH MCHC RDW Lymph % (Auto) Lymph # (Auto) Seg Neutrophils % Seg Neuts % (Manual) Lymphocytes % (Manual) Nucleated RBC % Seg Neutrophils # Seg Neutrophils # Man Lymphocytes # (Manual) Monocytes # (Manual) D-Dimer ABG pH POC ABG pCO2 POC ABG pO2 ABG pO2 ABG HCO3 ABG O2 Saturation ABG Base Excess ABG Hemoglobin ABG Oxyhemoglobin ABG Sodium ABG Potassium ABG Chloride ABG Glucose Oxyhemoglobin Sodium Potassium Chloride Carbon Dioxide BUN Creatinine Glucose POC Glucose 181 H 204 H Lactic Acid Calcium Magnesium Ferritin Total Bilirubin Direct Bilirubin AST ALT Alkaline Phosphatase Lactate Dehydrogenase C-Reactive Protein Total Protein Albumin Triglycerides 738 H Arterial Blood Glucose Arterial Blood Ionized Calcium Urine WBC (Auto) Coronavirus (PCR) SARS-CoV-2 IgG Ab 06/10/20 06/11/20 06/11/20 17:17 00:04 04:38 WBC RBC Hgb Hct MCV MCH MCHC RDW Lymph % (Auto) Lymph # (Auto) Seg Neutrophils % Seg Neuts % (Manual) Lymphocytes % (Manual) Nucleated RBC % Seg Neutrophils # Seg Neutrophils # Man Lymphocytes # (Manual) Monocytes # (Manual) D-Dimer ABG pH 7.479 H POC ABG pCO2 POC ABG pO2 76.7 L ABG pO2 ABG HCO3 ABG O2 Saturation ABG Base Excess ABG Hemoglobin 9.8 L ABG Oxyhemoglobin ABG Sodium 135.8 L ABG Potassium ABG Chloride ABG Glucose 238 H Oxyhemoglobin Sodium Potassium Chloride Carbon Dioxide BUN Creatinine Glucose POC Glucose 156 H 178 H Lactic Acid Calcium Magnesium Ferritin Total Bilirubin Direct Bilirubin AST ALT Alkaline Phosphatase Lactate Dehydrogenase C-Reactive Protein Total Protein Albumin Triglycerides Arterial Blood Glucose 238 H Arterial Blood Ionized Calcium Urine WBC (Auto) Coronavirus (PCR) SARS-CoV-2 IgG Ab 06/11/20 06/11/20 06/11/20 05:21 06:52 11:50 WBC RBC Hgb Hct MCV MCH MCHC RDW Lymph % (Auto) Lymph # (Auto) Seg Neutrophils % Seg Neuts % (Manual) Lymphocytes % (Manual) Nucleated RBC % Seg Neutrophils # Seg Neutrophils # Man Lymphocytes # (Manual) Monocytes # (Manual) D-Dimer ABG pH POC ABG pCO2 POC ABG pO2 ABG pO2 ABG HCO3 ABG O2 Saturation ABG Base Excess ABG Hemoglobin ABG Oxyhemoglobin ABG Sodium ABG Potassium ABG Chloride ABG Glucose Oxyhemoglobin Sodium Potassium Chloride Carbon Dioxide BUN Creatinine Glucose POC Glucose 215 H 187 H Lactic Acid Calcium Magnesium Ferritin Total Bilirubin Direct Bilirubin AST ALT Alkaline Phosphatase Lactate Dehydrogenase C-Reactive Protein Total Protein Albumin Triglycerides 331 H Arterial Blood Glucose Arterial Blood Ionized Calcium Urine WBC (Auto) Coronavirus (PCR) SARS-CoV-2 IgG Ab 06/11/20 06/11/20 06/12/20 17:49 23:35 04:52 WBC RBC Hgb Hct MCV MCH MCHC RDW Lymph % (Auto) Lymph # (Auto) Seg Neutrophils % Seg Neuts % (Manual) Lymphocytes % (Manual) Nucleated RBC % Seg Neutrophils # Seg Neutrophils # Man Lymphocytes # (Manual) Monocytes # (Manual) D-Dimer ABG pH 7.486 H POC ABG pCO2 POC ABG pO2 ABG pO2 ABG HCO3 ABG O2 Saturation ABG Base Excess ABG Hemoglobin 9.4 L ABG Oxyhemoglobin ABG Sodium ABG Potassium 3.2 L ABG Chloride ABG Glucose 209 H Oxyhemoglobin Sodium Potassium Chloride Carbon Dioxide BUN Creatinine Glucose POC Glucose 211 H 200 H Lactic Acid Calcium Magnesium Ferritin Total Bilirubin Direct Bilirubin AST ALT Alkaline Phosphatase Lactate Dehydrogenase C-Reactive Protein Total Protein Albumin Triglycerides Arterial Blood Glucose 209 H Arterial Blood Ionized Calcium Urine WBC (Auto) Coronavirus (PCR) SARS-CoV-2 IgG Ab 06/12/20 06/12/20 06/12/20 05:13 11:47 18:33 WBC RBC Hgb Hct MCV MCH MCHC RDW Lymph % (Auto) Lymph # (Auto) Seg Neutrophils % Seg Neuts % (Manual) Lymphocytes % (Manual) Nucleated RBC % Seg Neutrophils # Seg Neutrophils # Man Lymphocytes # (Manual) Monocytes # (Manual) D-Dimer ABG pH POC ABG pCO2 POC ABG pO2 ABG pO2 ABG HCO3 ABG O2 Saturation ABG Base Excess ABG Hemoglobin ABG Oxyhemoglobin ABG Sodium ABG Potassium ABG Chloride ABG Glucose Oxyhemoglobin Sodium Potassium Chloride Carbon Dioxide BUN Creatinine Glucose POC Glucose 174 H 214 H 194 H Lactic Acid Calcium Magnesium Ferritin Total Bilirubin Direct Bilirubin AST ALT Alkaline Phosphatase Lactate Dehydrogenase C-Reactive Protein Total Protein Albumin Triglycerides Arterial Blood Glucose Arterial Blood Ionized Calcium Urine WBC (Auto) Coronavirus (PCR) SARS-CoV-2 IgG Ab 06/12/20 06/13/20 06/13/20 23:49 05:41 12:30 WBC RBC Hgb Hct MCV MCH MCHC RDW Lymph % (Auto) Lymph # (Auto) Seg Neutrophils % Seg Neuts % (Manual) Lymphocytes % (Manual) Nucleated RBC % Seg Neutrophils # Seg Neutrophils # Man Lymphocytes # (Manual) Monocytes # (Manual) D-Dimer ABG pH POC ABG pCO2 POC ABG pO2 ABG pO2 ABG HCO3 ABG O2 Saturation ABG Base Excess ABG Hemoglobin ABG Oxyhemoglobin ABG Sodium ABG Potassium ABG Chloride ABG Glucose Oxyhemoglobin Sodium Potassium Chloride Carbon Dioxide BUN Creatinine Glucose POC Glucose 160 H 150 H 181 H Lactic Acid Calcium Magnesium Ferritin Total Bilirubin Direct Bilirubin AST ALT Alkaline Phosphatase Lactate Dehydrogenase C-Reactive Protein Total Protein Albumin Triglycerides Arterial Blood Glucose Arterial Blood Ionized Calcium Urine WBC (Auto) Coronavirus (PCR) SARS-CoV-2 IgG Ab 06/13/20 06/13/20 06/13/20 14:14 17:48 23:27 WBC 12.8 H RBC 2.33 L Hgb 8.0 L Hct 23.3 L MCV 100 H MCH 34 H MCHC RDW 15.7 H Lymph % (Auto) Lymph # (Auto) Seg Neutrophils % Seg Neuts % (Manual) 85.0 H Lymphocytes % (Manual) 10.0 L Nucleated RBC % Seg Neutrophils # Seg Neutrophils # Man 10.9 H Lymphocytes # (Manual) Monocytes # (Manual) D-Dimer ABG pH POC ABG pCO2 POC ABG pO2 ABG pO2 ABG HCO3 ABG O2 Saturation ABG Base Excess ABG Hemoglobin ABG Oxyhemoglobin ABG Sodium ABG Potassium ABG Chloride ABG Glucose Oxyhemoglobin Sodium Potassium Chloride Carbon Dioxide BUN Creatinine Glucose POC Glucose 173 H 154 H Lactic Acid Calcium Magnesium Ferritin Total Bilirubin Direct Bilirubin AST ALT Alkaline Phosphatase Lactate Dehydrogenase C-Reactive Protein Total Protein Albumin Triglycerides Arterial Blood Glucose Arterial Blood Ionized Calcium Urine WBC (Auto) Coronavirus (PCR) SARS-CoV-2 IgG Ab 06/14/20 06/14/20 06/14/20 03:58 05:21 07:15 WBC 26.2 H RBC 2.97 L Hgb 9.7 L Hct 29.9 L D MCV 101 H MCH 33 H MCHC RDW 15.3 H Lymph % (Auto) Lymph # (Auto) Seg Neutrophils % Seg Neuts % (Manual) 79.0 H Lymphocytes % (Manual) 5.0 L Nucleated RBC % 3.0 H Seg Neutrophils # Seg Neutrophils # Man 20.7 H Lymphocytes # (Manual) Monocytes # (Manual) 1.3 H D-Dimer ABG pH POC ABG pCO2 51.5 H POC ABG pO2 70.0 L ABG pO2 ABG HCO3 ABG O2 Saturation ABG Base Excess ABG Hemoglobin 10.1 L ABG Oxyhemoglobin ABG Sodium 131.5 L ABG Potassium 3.1 L ABG Chloride 93.0 L ABG Glucose 188 H Oxyhemoglobin Sodium Potassium Chloride Carbon Dioxide BUN Creatinine Glucose POC Glucose 147 H Lactic Acid Calcium Magnesium Ferritin Total Bilirubin Direct Bilirubin AST ALT Alkaline Phosphatase Lactate Dehydrogenase C-Reactive Protein Total Protein Albumin Triglycerides Arterial Blood Glucose 188 H Arterial Blood Ionized Calcium Urine WBC (Auto) Coronavirus (PCR) SARS-CoV-2 IgG Ab 06/14/20 06/14/20 06/14/20 07:15 11:30 11:50 WBC RBC Hgb Hct MCV MCH MCHC RDW Lymph % (Auto) Lymph # (Auto) Seg Neutrophils % Seg Neuts % (Manual) Lymphocytes % (Manual) Nucleated RBC % Seg Neutrophils # Seg Neutrophils # Man Lymphocytes # (Manual) Monocytes # (Manual) D-Dimer ABG pH POC ABG pCO2 POC ABG pO2 ABG pO2 ABG HCO3 ABG O2 Saturation ABG Base Excess ABG Hemoglobin ABG Oxyhemoglobin ABG Sodium ABG Potassium ABG Chloride ABG Glucose Oxyhemoglobin Sodium 135 L Potassium 3.5 L Chloride 90.4 L Carbon Dioxide 38 H BUN Creatinine 0.5 L Glucose 190 H POC Glucose 176 H Lactic Acid Calcium Magnesium Ferritin 1496.0 H Total Bilirubin Direct Bilirubin AST ALT 81 H Alkaline Phosphatase Lactate Dehydrogenase C-Reactive Protein Total Protein Albumin 2.9 L Triglycerides Arterial Blood Glucose Arterial Blood Ionized Calcium Urine WBC (Auto) Coronavirus (PCR) SARS-CoV-2 IgG Ab 06/14/20 06/15/20 06/15/20 23:31 04:00 05:00 WBC RBC Hgb Hct MCV MCH MCHC RDW Lymph % (Auto) Lymph # (Auto) Seg Neutrophils % Seg Neuts % (Manual) Lymphocytes % (Manual) Nucleated RBC % Seg Neutrophils # Seg Neutrophils # Man Lymphocytes # (Manual) Monocytes # (Manual) D-Dimer ABG pH POC ABG pCO2 POC ABG pO2 ABG pO2 ABG HCO3 ABG O2 Saturation ABG Base Excess ABG Hemoglobin ABG Oxyhemoglobin ABG Sodium ABG Potassium ABG Chloride ABG Glucose Oxyhemoglobin Sodium 133 L Potassium Chloride 91.1 L Carbon Dioxide 34 H BUN Creatinine 0.4 L Glucose 159 H POC Glucose 200 H Lactic Acid Calcium Magnesium Ferritin Total Bilirubin 2.00 H Direct Bilirubin AST 47 H ALT 77 H Alkaline Phosphatase Lactate Dehydrogenase C-Reactive Protein Total Protein Albumin 2.6 L Triglycerides 152 H Arterial Blood Glucose Arterial Blood Ionized Calcium Urine WBC (Auto) Coronavirus (PCR) SARS-CoV-2 IgG Ab 06/15/20 06/15/20 06/15/20 05:35 06:27 11:38 WBC RBC Hgb Hct MCV MCH MCHC RDW Lymph % (Auto) Lymph # (Auto) Seg Neutrophils % Seg Neuts % (Manual) Lymphocytes % (Manual) Nucleated RBC % Seg Neutrophils # Seg Neutrophils # Man Lymphocytes # (Manual) Monocytes # (Manual) D-Dimer ABG pH POC ABG pCO2 61.0 H POC ABG pO2 67.9 L ABG pO2 ABG HCO3 ABG O2 Saturation ABG Base Excess ABG Hemoglobin 10.4 L ABG Oxyhemoglobin ABG Sodium 132.7 L ABG Potassium 3.3 L ABG Chloride 92.0 L ABG Glucose 158 H Oxyhemoglobin Sodium Potassium Chloride Carbon Dioxide BUN Creatinine Glucose POC Glucose 148 H 197 H Lactic Acid Calcium Magnesium Ferritin Total Bilirubin Direct Bilirubin AST ALT Alkaline Phosphatase Lactate Dehydrogenase C-Reactive Protein Total Protein Albumin Triglycerides Arterial Blood Glucose 158 H Arterial Blood Ionized Calcium Urine WBC (Auto) Coronavirus (PCR) SARS-CoV-2 IgG Ab 06/15/20 06/15/20 06/16/20 17:29 Unknown 00:01 WBC 20.7 H RBC 2.57 L Hgb 8.9 L Hct 25.8 L MCV 101 H MCH 35 H MCHC 35 H RDW 16.0 H Lymph % (Auto) Lymph # (Auto) Seg Neutrophils % Seg Neuts % (Manual) 83.0 H Lymphocytes % (Manual) 8.0 L Nucleated RBC % Seg Neutrophils # Seg Neutrophils # Man 17.2 H Lymphocytes # (Manual) Monocytes # (Manual) 1.2 H D-Dimer ABG pH POC ABG pCO2 POC ABG pO2 ABG pO2 ABG HCO3 ABG O2 Saturation ABG Base Excess ABG Hemoglobin ABG Oxyhemoglobin ABG Sodium ABG Potassium ABG Chloride ABG Glucose Oxyhemoglobin Sodium Potassium Chloride Carbon Dioxide BUN Creatinine Glucose POC Glucose 231 H 257 H Lactic Acid Calcium Magnesium Ferritin Total Bilirubin Direct Bilirubin AST ALT Alkaline Phosphatase Lactate Dehydrogenase C-Reactive Protein Total Protein Albumin Triglycerides Arterial Blood Glucose Arterial Blood Ionized Calcium Urine WBC (Auto) Coronavirus (PCR) SARS-CoV-2 IgG Ab 06/16/20 06/16/20 06/16/20 04:00 04:00 05:22 WBC 13.8 H RBC 2.03 L Hgb 7.6 L Hct 20.7 L MCV 102 H MCH 37 H MCHC 37 H RDW 16.2 H Lymph % (Auto) 4.4 L Lymph # (Auto) 0.6 L Seg Neutrophils % Seg Neuts % (Manual) Lymphocytes % (Manual) Nucleated RBC % Seg Neutrophils # 12.7 H Seg Neutrophils # Man Lymphocytes # (Manual) Monocytes # (Manual) D-Dimer ABG pH POC ABG pCO2 POC ABG pO2 ABG pO2 ABG HCO3 ABG O2 Saturation ABG Base Excess ABG Hemoglobin ABG Oxyhemoglobin ABG Sodium ABG Potassium ABG Chloride ABG Glucose Oxyhemoglobin Sodium 130 L Potassium Chloride 88.9 L Carbon Dioxide 36 H BUN Creatinine 0.3 L Glucose 276 H POC Glucose 250 H Lactic Acid Calcium Magnesium Ferritin Total Bilirubin Direct Bilirubin AST ALT Alkaline Phosphatase Lactate Dehydrogenase C-Reactive Protein Total Protein Albumin Triglycerides Arterial Blood Glucose Arterial Blood Ionized Calcium Urine WBC (Auto) Coronavirus (PCR) SARS-CoV-2 IgG Ab 06/16/20 06/16/20 06/17/20 12:44 18:18 00:39 WBC RBC Hgb Hct MCV MCH MCHC RDW Lymph % (Auto) Lymph # (Auto) Seg Neutrophils % Seg Neuts % (Manual) Lymphocytes % (Manual) Nucleated RBC % Seg Neutrophils # Seg Neutrophils # Man Lymphocytes # (Manual) Monocytes # (Manual) D-Dimer ABG pH POC ABG pCO2 POC ABG pO2 ABG pO2 ABG HCO3 ABG O2 Saturation ABG Base Excess ABG Hemoglobin ABG Oxyhemoglobin ABG Sodium ABG Potassium ABG Chloride ABG Glucose Oxyhemoglobin Sodium Potassium Chloride Carbon Dioxide BUN Creatinine Glucose POC Glucose 279 H 239 H 247 H Lactic Acid Calcium Magnesium Ferritin Total Bilirubin Direct Bilirubin AST ALT Alkaline Phosphatase Lactate Dehydrogenase C-Reactive Protein Total Protein Albumin Triglycerides Arterial Blood Glucose Arterial Blood Ionized Calcium Urine WBC (Auto) Coronavirus (PCR) SARS-CoV-2 IgG Ab 06/17/20 06/17/20 06/17/20 03:40 04:08 10:54 WBC RBC Hgb Hct MCV MCH MCHC RDW Lymph % (Auto) Lymph # (Auto) Seg Neutrophils % Seg Neuts % (Manual) Lymphocytes % (Manual) Nucleated RBC % Seg Neutrophils # Seg Neutrophils # Man Lymphocytes # (Manual) Monocytes # (Manual) D-Dimer ABG pH POC ABG pCO2 65.7 H POC ABG pO2 ABG pO2 ABG HCO3 ABG O2 Saturation ABG Base Excess ABG Hemoglobin 11.9 L ABG Oxyhemoglobin ABG Sodium ABG Potassium ABG Chloride 93.0 L ABG Glucose 244 H Oxyhemoglobin Sodium Potassium Chloride Carbon Dioxide BUN Creatinine Glucose POC Glucose 221 H 248 H Lactic Acid Calcium Magnesium Ferritin Total Bilirubin Direct Bilirubin AST ALT Alkaline Phosphatase Lactate Dehydrogenase C-Reactive Protein Total Protein Albumin Triglycerides Arterial Blood Glucose 244 H Arterial Blood Ionized Calcium Urine WBC (Auto) Coronavirus (PCR) SARS-CoV-2 IgG Ab 06/17/20 06/17/20 06/17/20 17:47 23:11 23:29 WBC RBC Hgb Hct MCV MCH MCHC RDW Lymph % (Auto) Lymph # (Auto) Seg Neutrophils % Seg Neuts % (Manual) Lymphocytes % (Manual) Nucleated RBC % Seg Neutrophils # Seg Neutrophils # Man Lymphocytes # (Manual) Monocytes # (Manual) D-Dimer ABG pH POC ABG pCO2 85.2 H POC ABG pO2 48.4 L ABG pO2 ABG HCO3 ABG O2 Saturation ABG Base Excess ABG Hemoglobin 8.0 L ABG Oxyhemoglobin ABG Sodium ABG Potassium ABG Chloride 95.0 L ABG Glucose 292 H Oxyhemoglobin Sodium Potassium Chloride Carbon Dioxide BUN Creatinine Glucose POC Glucose 245 H 252 H Lactic Acid Calcium Magnesium Ferritin Total Bilirubin Direct Bilirubin AST ALT Alkaline Phosphatase Lactate Dehydrogenase C-Reactive Protein Total Protein Albumin Triglycerides Arterial Blood Glucose 292 H Arterial Blood Ionized Calcium Urine WBC (Auto) Coronavirus (PCR) SARS-CoV-2 IgG Ab 06/18/20 06/18/20 06/18/20 03:14 05:34 11:47 WBC RBC Hgb Hct MCV MCH MCHC RDW Lymph % (Auto) Lymph # (Auto) Seg Neutrophils % Seg Neuts % (Manual) Lymphocytes % (Manual) Nucleated RBC % Seg Neutrophils # Seg Neutrophils # Man Lymphocytes # (Manual) Monocytes # (Manual) D-Dimer ABG pH POC ABG pCO2 65.4 H POC ABG pO2 160.7 H ABG pO2 ABG HCO3 ABG O2 Saturation ABG Base Excess ABG Hemoglobin 7.8 L ABG Oxyhemoglobin ABG Sodium ABG Potassium ABG Chloride 95.0 L ABG Glucose 251 H Oxyhemoglobin Sodium Potassium Chloride Carbon Dioxide BUN Creatinine Glucose POC Glucose 243 H 263 H Lactic Acid Calcium Magnesium Ferritin Total Bilirubin Direct Bilirubin AST ALT Alkaline Phosphatase Lactate Dehydrogenase C-Reactive Protein Total Protein Albumin Triglycerides Arterial Blood Glucose 251 H Arterial Blood Ionized Calcium Urine WBC (Auto) Coronavirus (PCR) SARS-CoV-2 IgG Ab 06/18/20 06/18/20 06/19/20 17:31 23:33 04:32 WBC RBC Hgb Hct MCV MCH MCHC RDW Lymph % (Auto) Lymph # (Auto) Seg Neutrophils % Seg Neuts % (Manual) Lymphocytes % (Manual) Nucleated RBC % Seg Neutrophils # Seg Neutrophils # Man Lymphocytes # (Manual) Monocytes # (Manual) D-Dimer ABG pH POC ABG pCO2 83.1 H POC ABG pO2 65.8 L ABG pO2 ABG HCO3 ABG O2 Saturation ABG Base Excess ABG Hemoglobin 8.9 L ABG Oxyhemoglobin ABG Sodium ABG Potassium ABG Chloride 96.0 L ABG Glucose 297 H Oxyhemoglobin Sodium Potassium Chloride Carbon Dioxide BUN Creatinine Glucose POC Glucose 286 H 238 H Lactic Acid Calcium Magnesium Ferritin Total Bilirubin Direct Bilirubin AST ALT Alkaline Phosphatase Lactate Dehydrogenase C-Reactive Protein Total Protein Albumin Triglycerides Arterial Blood Glucose 297 H Arterial Blood Ionized Calcium Urine WBC (Auto) Coronavirus (PCR) SARS-CoV-2 IgG Ab 06/19/20 05:55 WBC RBC Hgb Hct MCV MCH MCHC RDW Lymph % (Auto) Lymph # (Auto) Seg Neutrophils % Seg Neuts % (Manual) Lymphocytes % (Manual) Nucleated RBC % Seg Neutrophils # Seg Neutrophils # Man Lymphocytes # (Manual) Monocytes # (Manual) D-Dimer ABG pH POC ABG pCO2 POC ABG pO2 ABG pO2 ABG HCO3 ABG O2 Saturation ABG Base Excess ABG Hemoglobin ABG Oxyhemoglobin ABG Sodium ABG Potassium ABG Chloride ABG Glucose Oxyhemoglobin Sodium Potassium Chloride Carbon Dioxide BUN Creatinine Glucose POC Glucose 274 H Lactic Acid Calcium Magnesium Ferritin Total Bilirubin Direct Bilirubin AST ALT Alkaline Phosphatase Lactate Dehydrogenase C-Reactive Protein Total Protein Albumin Triglycerides Arterial Blood Glucose Arterial Blood Ionized Calcium Urine WBC (Auto) Coronavirus (PCR) SARS-CoV-2 IgG Ab Chest x-ray: other (none today) Allied health notes reviewed: nursing
--- NOTE | 2020-06-19 11:14 | Progress Note ---
Assessment and Plan Assessment and plan: - Acute hypoxemic respiratory failure; Patient intubated and on vent support --Severe COVID-19 bilateral pneumonia Coronavirus protocol: IV steroid therapy, completed remdesivir, isolation precautions, contact precautions, prone positioning while in bed, pulmonary toilet. ID following SARS CoV-2 IgG positive patient is NOT a candidate for COVID convalescent plasma --Severe sepsis/septic shock, due to COVID 19 PNA cont pressors as needed -- Acute kidney injury (SEN) , likely vasomotor nephropathy Resolved, IV fluids, avoid nephrotoxins -- Alcohol dependence; no episodes of withdrawal symptoms Thiamine, folic acid, multivitamin, CIWA protocol. -- Elevated liver function tests Suspected secondary to alcoholic liver disease. Supportive care, alcohol cessat ion, patient counseled. --History of EtOH dependence -- DVT prophylaxis On therapeutic Lovenox 06/16/2020. Patient currently on mechanical ventilation with AC mode rate 30, tidal volume 500, FiO2 70% and PEEP of 16. Continue anticoagulation with Lovenox 110 milligrams subcu every 12 hours. Wean sedation of fentanyl/Versed as needed. Currently with IV steroids of Solu-Medrol 40 mg IV every 12 hours. Patient will likely need tracheostomy per pulmonary recommendations. Continue pressors to maintain MAP > 65. 06/17/2020. Patient currently on mechanical ventilation with AC mode rate 30, tidal volume 500, FiO2 65% and PEEP of 16. Continue anticoagulation with Lovenox 110 milligrams subcu every 12 hours. Wean sedation of fentanyl/Versed as needed. Currently with IV steroids of Solu-Medrol 40 mg IV every 12 hours. Patient will likely need tracheostomy per pulmonary recommendations. 06/18/2020. Patient currently on mechanical ventilation with AC mode rate 30, tidal volume 500, FiO2 70% and PEEP of 16. Continue Lovenox for anticoagulation and fentanyl/Versed for sedation. Wean steroids per pulmonary. CIWA protocol initiated for history of EtOH dependence 06/19/2020. Patient currently on mechanical ventilation with AC mode rate 30, tidal volume 500, FiO2 60% and PEEP of 16. Wean FiO2 as tolerated per protocol. Continue Lovenox for anticoagulation and fentanyl/Versed for sedation. Wean steroids per pulmonary. CIWA protocol initiated for history of EtOH dependence The high probability of a clinically significant, sudden or life threatening deterioration of the [respiratory] system(s) required my full and direct attention, intervention and personal management. The aggregate critical care time was [31] minutes. This time is in addition to time spent performing reported procedures but includes the following: [x] Data Review and interpretation [x] Patient assessment and monitoring of vital signs [x] Documentation [x] Medication orders and management History Interval history: no new issues Hospitalist Physical - Constitutional Vitals: Temp Pulse Resp BP Pulse Ox 98.7 F 120 H 30 H 142/85 94 06/19/20 07:54 06/19/20 10:00 06/19/20 10:00 06/19/20 10:00 06/19/20 10:00 General appearance: Present: no acute distress, other - EENT Eyes: Present: PERRL, EOM intact ENT: hearing intact, clear oral mucosa, dentition normal - Neck Neck: Present: supple, normal ROM - Respiratory Respiratory effort: normal Respiratory: bilateral: CTA - Cardiovascular Rhythm: regular Heart Sounds: Present: S1 & S2. Absent: gallop, rub - Extremities Extremities: no ischemia, No edema, Full ROM - Abdominal General gastrointestinal: soft, non-tender, non-distended, normal bowel sounds - Integumentary Integumentary: Present: clear, warm, dry - Neurologic Neurologic: CNII-XII intact, moves all extremities Results - Labs CBC & Chem 7: 06/16/20 04:00 06/16/20 04:00 Labs: Laboratory Last Values WBC 13.8 K/mm3 (4.5-11.0) H 06/16/20 04:00 RBC 2.03 M/mm3 (3.65-5.03) L 06/16/20 04:00 Hgb 7.6 gm/dl (11.8-15.2) L 06/16/20 04:00 Hct 20.7 % (35.5-45.6) L 06/16/20 04:00 MCV 102 fl (84-94) H 06/16/20 04:00 MCH 37 pg (28-32) H 06/16/20 04:00 MCHC 37 % (32-34) H 06/16/20 04:00 RDW 16.2 % (13.2-15.2) H 06/16/20 04:00 Plt Count 208 K/mm3 (140-440) 06/16/20 04:00 Lymph % (Auto) 4.4 % (13.4-35.0) L 06/16/20 04:00 [place] % (Auto) 3.6 % (0.0-7.3) 06/16/20 04:00 Eos % (Auto) 0.0 % (0.0-4.3) 06/16/20 04:00 Baso % (Auto) 0.3 % (0.0-1.8) 06/16/20 04:00 Lymph # (Auto) 0.6 K/mm3 (1.2-5.4) L 06/16/20 04:00 [place] # (Auto) 0.5 K/mm3 (0.0-0.8) 06/16/20 04:00 Eos # (Auto) 0.0 K/mm3 (0.0-0.4) 06/16/20 04:00 Baso # (Auto) 0.0 K/mm3 (0.0-0.1) 06/16/20 04:00 Add Manual Diff Complete 06/15/20 Unknown Total Counted 100 06/15/20 Unknown Seg Neutrophils % Athletic Coach 06/16/20 04:00 Seg Neuts % (Manual) 83.0 % (40.0-70.0) H 06/15/20 Unknown Band Neutrophils % 0 % 06/15/20 Unknown Lymphocytes % (Manual) 8.0 % (13.4-35.0) L 06/15/20 Unknown Reactive Lymphs % (Man) 0 % 06/15/20 Unknown Monocytes % (Manual) 6.0 % (0.0-7.3) 06/15/20 Unknown Eosinophils % (Manual) 0 % (0.0-4.3) 06/15/20 Unknown Basophils % (Manual) 0 % (0.0-1.8) 06/15/20 Unknown Metamyelocytes % 3.0 % 06/15/20 Unknown Myelocytes % 0 % 06/15/20 Unknown Promyelocytes % 0 % 06/15/20 Unknown Blast Cells % 0 % 06/15/20 Unknown Nucleated RBC % Not Reportable 06/15/20 Unknown Seg Neutrophils # 12.7 K/mm3 (1.8-7.7) H 06/16/20 04:00 Seg Neutrophils # Man 17.2 K/mm3 (1.8-7.7) H 06/15/20 Unknown Band Neutrophils # 0.0 K/mm3 06/15/20 Unknown Lymphocytes # (Manual) 1.7 K/mm3 (1.2-5.4) 06/15/20 Unknown Abs React Lymphs (Man) 0.0 K/mm3 06/15/20 Unknown Monocytes # (Manual) 1.2 K/mm3 (0.0-0.8) H 06/15/20 Unknown Eosinophils # (Manual) 0.0 K/mm3 (0.0-0.4) 06/15/20 Unknown Basophils # (Manual) 0.0 K/mm3 (0.0-0.1) 06/15/20 Unknown Metamyelocytes # 0.6 K/mm3 06/15/20 Unknown Myelocytes # 0.0 K/mm3 06/15/20 Unknown Promyelocytes # 0.0 K/mm3 06/15/20 Unknown Blast Cells # 0.0 K/mm3 06/15/20 Unknown WBC Morphology Not Reportable 06/15/20 Unknown Hypersegmented Neuts Not Reportable 06/15/20 Unknown Hyposegmented Neuts Not Reportable 06/15/20 Unknown Hypogranular Neuts Not Reportable 06/15/20 Unknown Smudge Cells Not Reportable 06/15/20 Unknown Toxic Granulation Not Reportable 06/15/20 Unknown Toxic Vacuolation Not Reportable 06/15/20 Unknown Dohle Bodies Not Reportable 06/15/20 Unknown Pelger-Huet Anomaly Not Reportable 06/15/20 Unknown Jason Rods Not Reportable 06/15/20 Unknown Platelet Estimate Consistent w auto 06/15/20 Unknown Clumped Platelets Not Reportable 06/15/20 Unknown Plt Clumps, EDTA Not Reportable 06/15/20 Unknown Large Platelets Not Reportable 06/15/20 Unknown Giant Platelets Not Reportable 06/15/20 Unknown Platelet Satelliting Not Reportable 06/15/20 Unknown Plt Morphology Comment Not Reportable 06/15/20 Unknown RBC Morphology Not Reportable 06/15/20 Unknown Dimorphic RBCs Not Reportable 06/15/20 Unknown Polychromasia Few 06/15/20 Unknown Hypochromasia 1+ 06/15/20 Unknown Poikilocytosis Not Reportable 06/15/20 Unknown Anisocytosis 1+ 06/15/20 Unknown Microcytosis Not Reportable 06/15/20 Unknown Macrocytosis 1+ 06/15/20 Unknown Spherocytes Not Reportable 06/15/20 Unknown Pappenheimer Bodies Not Reportable 06/15/20 Unknown Sickle Cells Not Reportable 06/15/20 Unknown Target Cells Not Reportable 06/15/20 Unknown Tear Drop Cells Not Reportable 06/15/20 Unknown Ovalocytes Not Reportable 06/15/20 Unknown Stomatocytes Few 06/14/20 07:15 Helmet Cells Not Reportable 06/15/20 Unknown Sinclair-Mclaughlin Bodies Not Reportable 06/15/20 Unknown [place] Rings Not Reportable 06/15/20 Unknown [place] Cells Not Reportable 06/15/20 Unknown Bite Cells Not Reportable 06/15/20 Unknown Crenated Cell Not Reportable 06/15/20 Unknown Elliptocytes Not Reportable 06/15/20 Unknown Acanthocytes (Spur) Not Reportable 06/15/20 Unknown Rouleaux Not Reportable 06/15/20 Unknown Hemoglobin C Crystals Not Reportable 06/15/20 Unknown Schistocytes Few 06/15/20 Unknown Malaria parasites Not Reportable 06/15/20 Unknown Josue Bodies Not Reportable 06/15/20 Unknown Hem Pathologist Commnt No 06/15/20 Unknown PT 14.4 Sec. (12.2-14.9) 06/13/20 14:14 INR 1.13 (0.87-1.13) 06/13/20 14:14 D-Dimer 1887.82 ng/mlDDU (0-234) H 05/20/20 08:16 ABG pH 7.390 (7.320-7.450) 06/19/20 04:32 POC ABG pCO2 83.1 mmHg (32.0-48.0) H 06/19/20 04:32 ABG pCO2 69.6 mm Hg 06/05/20 12:35 POC ABG pO2 65.8 mmHg (83-108) L 06/19/20 04:32 ABG pO2 127.9 mm Hg (80.0-90.0) H 06/05/20 12:35 POC ABG HCO3 49.2 06/19/20 04:32 ABG HCO3 41.1 mmol/L (20.0-26.0) H 06/05/20 12:35 ABG O2 Saturation 98.3 % (95.0-99.0) 06/05/20 12:35 ABG O2 Content 18.2 (0.0-44) 06/05/20 12:35 POC ABG Base Excess 21.2 06/19/20 04:32 ABG Base Excess 13.0 mmol/L (-2.0-3.0) H 06/05/20 12:35 ABG Hemoglobin 8.9 (12.0-17.5) L 06/19/20 04:32 ABG Oxyhemoglobin 86.3 (94-98) L 05/09/20 15:56 ABG Carboxyhemoglobin 2.2 % (0.0-5.0) 06/05/20 12:35 ABG Methemoglobin 0.5 % (0.0-1.5) 06/05/20 12:35 ABG Sodium 144.4 mmol/L (136.0-145.0) 06/19/20 04:32 ABG Potassium 3.6 mmol/L (3.40-4.50) 06/19/20 04:32 ABG Chloride 96.0 mmol/L (98-107) L 06/19/20 04:32 ABG Glucose 297 mg/dL (65-95) H 06/19/20 04:32 Oxyhemoglobin 95.6 % (95.0-99.0) 06/05/20 12:35 Carboxyhemoglobin 1.3 (0.5-1.5) 05/09/20 15:56 FiO2 60 06/19/20 04:32 Sodium 130 mmol/L (137-145) L 06/16/20 04:00 Potassium 3.8 mmol/L (3.6-5.0) 06/16/20 04:00 Chloride 88.9 mmol/L (98-107) L 06/16/20 04:00 Carbon Dioxide 36 mmol/L (22-30) H 06/16/20 04:00 Anion Gap 9 mmol/L 06/16/20 04:00 BUN 20 mg/dL (9-20) 06/16/20 04:00 Creatinine 0.3 mg/dL (0.8-1.3) L 06/16/20 04:00 Estimated GFR > 60 ml/min 06/16/20 04:00 BUN/Creatinine Ratio 67 % 06/16/20 04:00 Glucose 276 mg/dL (75-100) H 06/16/20 04:00 POC Glucose 274 mg/dL (70-105) H 06/19/20 05:55 Lactic Acid 1.80 mmol/L (0.7-2.0) 05/09/20 Unknown Calcium 8.4 mg/dL (8.4-10.2) 06/16/20 04:00 Phosphorus 3.10 mg/dL (2.5-4.5) 06/15/20 04:00 Magnesium 1.90 mg/dL (1.7-2.3) 06/15/20 04:00 Ferritin 1496.0 ng/mL (30.0-300.0) H 06/14/20 11:50 Total Bilirubin 2.00 mg/dL (0.1-1.2) H 06/15/20 04:00 Direct Bilirubin 0.6 mg/dL (0-0.2) H 05/11/20 07:30 Indirect Bilirubin 0.9 mg/dL 05/11/20 07:30 AST 47 units/L (5-40) H 06/15/20 04:00 ALT 77 units/L (7-56) H 06/15/20 04:00 Alkaline Phosphatase 96 units/L (35-129) 06/15/20 04:00 Lactate Dehydrogenase 705 units/L (91-180) H 05/20/20 08:16 C-Reactive Protein 3.10 mg/dL (0.00-1.30) H 05/20/20 08:16 Total Protein 6.3 g/dL (6.3-8.2) 06/15/20 04:00 Albumin 2.6 g/dL (3.9-5) L 06/15/20 04:00 Albumin/Globulin Ratio 0.7 % 06/15/20 04:00 Triglycerides 152 mg/dL (2-149) H 06/15/20 05:00 Procalcitonin 0.94 ng/mL (<0.15) 06/14/20 11:50 Arterial Blood Glucose 297 mg/dL (65-95) H 06/19/20 04:32 Arterial Blood Ionized Calcium 4.9 mg/dL (4.6-5.3) 06/19/20 04:32 Urine Color [place] (Yellow) 05/10/20 Unknown Urine Turbidity Clear (Clear) 05/10/20 Unknown Urine pH 5.0 (5.0-7.0) 05/10/20 Unknown Ur Specific [place] 1.019 (1.003-1.030) 05/10/20 Unknown Urine Protein 100 mg/dl mg/dL (Negative) 05/10/20 Unknown Urine Glucose (UA) Neg mg/dL (Negative) 05/10/20 Unknown Urine Ketones Neg mg/dL (Negative) 05/10/20 Unknown Urine Blood Lg (Negative) 05/10/20 Unknown Urine Nitrite Neg (Negative) 05/10/20 Unknown Urine Bilirubin Neg (Negative) 05/10/20 Unknown Urine Urobilinogen 2.0 mg/dL (<2.0) 05/10/20 Unknown Ur Leukocyte Esterase Neg (Negative) 05/10/20 Unknown Urine WBC (Auto) 11.0 /HPF (0.0-6.0) H 05/10/20 Unknown Urine RBC (Auto) 2.0 /HPF (0.0-6.0) 05/10/20 Unknown U Epithel Cells (Auto) 1.0 /HPF (0-13.0) 05/10/20 Unknown Urine Bacteria (Auto) 1+ /HPF (Negative) 05/10/20 Unknown Urine Mucus Few /HPF 05/10/20 Unknown Plasma/Serum Alcohol < 0.01 % (0-0.07) 05/09/20 14:20 Coronavirus (PCR) Positive (Negative) A 05/10/20 Unknown SARS-CoV-2 IgG Ab Reactive (NonReactive) A 05/11/20 07:30 Microbiology: Microbiology 06/14/20 14:39 Peripheral/Venous Blood Culture - Preliminary NO GROWTH AFTER 4 DAYS 06/14/20 14:39 Peripheral/Venous Blood Culture - Preliminary NO GROWTH AFTER 4 DAYS - Diagnostic Impressions Diagnostic Impressions: Echocardiogram 05/20/20 13:02 Transthoracic Echocardiogram Indication: CHF BP: 97/73 Conclusions *The study quality is technically very difficult and limited. *The left ventricular chamber size, wall thickness and systolic function are within normal limits. There are no wall motion abnormalities observed. Ejection fraction is normal. *The estimated ejection fraction is 60-65%. *The pericardium appears normal. Findings Procedure Info: The study quality is technically difficult. Left Ventricle: The left ventricular chamber size, wall thickness and systolic function are within normal limits. There are no wall motion abnormalities observed. Ejection fraction is normal. The estimated ejection fraction is 60-65%. Abnormal left ventricular diastolic filling is observed, consistent with impaired relaxation. Left Atrium: The left atrium is normal in size with no visual thrombus identified. Right Ventricle: The right ventricle is not well visualized. Right Atrium: The right atrium is not well visualized. Aortic Valve: The aortic valve is trileaflet. The leaflets are thin with normal excursion. There is no aortic stenosis or regurgitation present. Mitral Valve: The mitral valve appears normal in structure and function. Tricuspid Valve: The tricuspid valve appears normal in structure and function. Unable to estimate the right ventricular systolic pressure. Pulmonic Valve: The pulmonic valve is not well visualized. There is no evidence of pulmonic regurgitation. There is no pulmonic stenosis. Pericardium: The pericardium appears normal. Pulmonary Artery: The main pulmonary artery is not well visualized. Venous: The inferior vena cava appears normal in size. Measurements Chambers 2D Name Value Normal Range IVSd (2D) 0.83 cm (0.6 - 1.1) LVPWd (2D) 0.83 cm (0.6 - 1.1) LVIDd (2D) 3.88 cm (3.7 - 5.6) LVIDs (2D) 2.46 cm (2 - 3.8) LV FS (2D) 36.52 % - EF Teichholz (2D) 66.97 % - Ao root diameter (2D) 3.47 cm (2 - 3.7) Volumes/Mass Name Value Normal Range LA ESV SP 4CH (A/L) 22.4 ml - LA ESV SP 2CH (A/L) 22.89 ml - LA ESV BP (A/L) 23.06 ml - LA ESV SP 4CH (MOD) 21.09 ml - LA ESV SP 2CH (MOD) 22.44 ml - Diastolic/Systolic Function Name Value Normal Range MV E-wave Vmax 0.48 m/sec - MV deceleration time 156.3 msec - MV A-wave Vmax 0.59 m/sec - MV E:A ratio 0.81 ratio - Aortic Valve Name Value Normal Range AV Vmax 0.97 m/sec - AV VTI 14.49 cm - AV peak gradient 3.73 mmHg - AV mean gradient 1.89 mmHg - LVOT diameter 2.09 cm - LVOT Vmax 0.72 m/sec - LVOT VTI 10.21 cm - LVOT peak gradient 2.05 mmHg - LVOT mean gradient 1.03 mmHg - SV LVOT 35.17 ml - INNA (continuity Vmax) 2.55 cm2 - INNA (continuity VTI) 2.43 cm2 - Tricuspid Valve Name Value Normal Range TV E-wave Vmax 0.37 m/sec - Pulmonic Valve/Qp:Qs Name Value Normal Range PV Vmax 0.72 m/sec - PV peak gradient 2.06 mmHg - RVOT Vmax 0.85 m/sec - RVOT VTI 9.89 cm - RVOT peak gradient 2.9 mmHg - PV acceleration time 72.31 msec - [place]/IV: Voiding Method Condom Catheter IV Catheter Type [Right Upper PICC Line arm] IV Catheter Type [Right CVL Internal Jugular] IV Catheter Type [Right Peripheral IV Forearm] IV Catheter Type [Left Forearm Peripheral IV ] IV Catheter Type [Left Wrist] INT / Saline Lock IV Catheter Type [Right Hand] INT / Saline Lock IV Catheter Type [Left Hand] INT / Saline Lock IV Catheter Type [Left Peripheral IV Antecubital] Active Medications - Current Medications Current Medications: Generic Name Dose Route Start Last Admin Trade Name Freq PRN Reason Stop Dose Admin Acetaminophen 650 mg 06/14/20 10:07 06/19/20 04:40 Tylenol FEEDTUBE 650 mg Q4H PRN Administration Pain, Mild (1-3) Alprazolam 0.25 mg 05/20/20 17:53 06/08/20 08:29 Alprazolam 0.25 Mg Tab PO 0.25 mg Q8H PRN Administration Anxiety Lipase/Protease/Amylase 1 each 05/22/20 13:01 Pancrecaden [place] 10,500 Unit FEEDTUBE PRN PRN For Clogged Feeding Tube Bisacodyl 10 mg 06/07/20 10:00 06/19/20 09:50 Dulcolax RI 10 mg QDAY DESIRE Administration Docusate Sodium 100 mg 05/28/20 14:00 06/19/20 09:51 Colace PO 100 mg BID DESIRE Administration Enoxaparin Sodium 110 mg 05/10/20 22:00 06/19/20 09:51 Enoxaparin 1 mg/kg (110 mg) 110 mg SUB-Q Administration Q12HR [facility] Protocol Famotidine 20 mg 05/25/20 22:00 06/19/20 09:50 Pepcid PO 20 mg BID DESIRE Administration Fentanyl 50 mcg 06/09/20 13:53 Sublimaze IV Q10MIN PRN ANALGESIA Folic Acid 1 mg 05/09/20 15:36 06/19/20 09:50 Folvite PO 1 mg QDAY [facility] Administration Hydrophilic Ointment 1 applic 05/21/20 20:33 Vaseline Lip Therapy TP Q2HR PRN Dry Lips Midazolam HCl 100 mg/ Sodium 100 mls @ 2 mls/hr 06/02/20 14:00 06/19/20 00:29 Chloride IV 5 mg/hr TITR DESIRE 5 mls/hr Administration Protocol 2 MG/HR Norepinephrine 4 mg in 250 mls @ 7.5 mls/hr 06/04/20 16:00 06/19/20 05:15 Levophed Drip 4 Mg/Ns 250 Ml IV 8 mcg/min TITR DESIRE 30 mls/hr Titration Protocol 2 MCG/MIN Propofol 500 mg in 50 mls @ 3.309 mls/hr 06/08/20 11:00 06/17/20 18:25 Propofol IV 35 mcg/kg/min TITR DESIRE 23.163 mls/hr Administration Protocol 5 MCG/KG/MIN Fentanyl Citrate 2,000 mcg in 100 mls @ 5.32 mls/hr 06/09/20 14:00 06/19/20 08:29 Fentanyl Drip Premix IV 4 mcg/kg/hr TITR DESIRE 21.28 mls/hr Administration Protocol 1 MCG/KG/HR Vasopressin 20 unit/ Sodium 101 mls @ 9.09 mls/hr 06/09/20 18:00 Chloride IV TITR DESIRE Protocol 0.03 UNITS/MIN Insulin Glargine 20 units 06/18/20 22:00 06/18/20 21:40 Insulin Glargine 100 Units/Ml SUB-Q 20 units QHS [facility] Administration Insulin Human Lispro 0 unit 05/29/20 14:00 06/19/20 06:23 Humalog SUB-Q 6 unit Q6H [facility] Administration Protocol Methylprednisolone Sodium Succinate 40 mg 05/20/20 18:00 06/19/20 05:08 Methylprednisolone Sod Succinate 40 Mg/1 Ml Inj IV 40 mg Q12H DESIRE Administration Metoprolol Tartrate 5 mg 05/20/20 17:52 06/17/20 12:36 Metoprolol IV 5 mg Q6HR PRN Administration Tachyarrhythmias Multi-Ingred Cream/Lotion/Oil/Oint 1 applic 05/21/20 20:33 Artificial Tears Ophth Oint OU Q4HR PRN Dry Eye(s) Phenobarbital 20 mg 06/18/20 14:00 06/19/20 05:08 Phenobarbital 20 Mg/5 Ml Oral Liqd FEEDTUBE 20 mg Q8HR DESIRE Administration Polyethylene Glycol 17 gm 05/28/20 22:00 06/18/20 21:39 Miralax 3350 PO 17 gm QHS DESIRE Administration Quetiapine Fumarate 300 mg 06/10/20 22:00 06/19/20 09:50 Seroquel PO 300 mg BID DESIRE Administration Senna 17.2 mg 06/07/20 10:00 06/19/20 09:50 Senokot PO 17.2 mg BID DESIRE Administration Simple Syrup 15 ml 05/22/20 13:01 Simple Syrup FEEDTUBE PRN PRN Hypoglycemia Simple Syrup 30 ml 05/22/20 13:01 Simple Syrup FEEDTUBE PRN PRN Hypoglycemia Sodium Bicarbonate 325 mg 05/22/20 13:01 Sodium Bicarbonate FEEDTUBE PRN PRN For Clogged Feeding Tube Sodium Chloride 10 ml 05/09/20 22:00 06/19/20 09:51 Sodium Chloride Flush Syringe 10 Ml IV 10 ml BID DESIRE Administration Nutrition/Malnutrition Assess - Dietary Evaluation Nutrition/Malnutrition Findings: Nutrition Notes Start: 05/17/20 14:10 Freq: Status: Active Protocol: Document 06/17/20 12:23 AB (Rec: 06/17/20 12:29 AB [id number]) Co-Sign 06/17/20 12:23 LM Nutrition Notes Initial or Follow up Reassessment Current Diagnosis Sepsis,Respiratory Failure Other Pertinent Diagnosis Bilat pneu, COVID-19 (+), EtOH dependence Current Diet Vital HP at 65 ml/hr (goal rate) Labs/Tests POC BG 221 Pertinent Medications Propofol at 19.854 ml/hr Height 6 ft Weight 107.1 kg [place] Body Weight (kg) 80.90 BMI 32.0 Weight Status Obese Subjective/Other Information F/U for TF tolerate/rate and oral secretions. 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 Per RN, pt still having cream colored oral secretions. Percent of energy/protein needs met: 86%/84% Burn Absent Trauma Absent GI Symptoms None Current % PO Negligible Minimum of two criteria No physical signs of malnutrition #1 Nutrition Diagnosis Inadequate oral intake Diagnosis Progress(for reassessment Continues documentation) Is patient on ventilator? Yes Is Patient Ambulatory and/or Out of Bed No REE-([place]-confined to bed) 2360.412 Kcal/Kg value to use for calculation 17 Approximate Energy Requirements Using 1821 kcal/Kg Calculation Used for Recommendations Kcal/kg Additional Notes Pro needs >2g/kg IBW: at least 162g/day Fluid needs 1ml/kcal Nutrition Intervention Change Diet Order: Continue TF with rate change Nutrition Support: Vital HP at 65ml/hr with 50ml water flush q4h. For hyponatremia, flush 50 ml q6h Kcal 1,560 Protein (gm) 136 Fluid (mL) 1,304 Goal #1 TF tolerance Goal #2 TF (at goal rate) to meet at least 75% energy and pro needs Anticipated Discharge Needs: Unable to identify at this time Follow-Up By: 06/24/20 Additional Comments F/U for TF tolerance and BM
[2020-06-19] MEDS: POLYETHYLENE GLYCOL 3350 17 GM POWDER PO SCH (21:25)
[2020-06-19] MEDS: INSULIN GLARGINE 100 UNITS/ML SUB-Q SCH (21:25)
[2020-06-20] MEDS: fentaNYL DRIP Premix 2,000 MCG/100 ML BAG IV SCH ×5 (02:56→22:24)
[2020-06-20 03:56] LABS: ABG Base Excess 24.2 mmol/L (-2.0-3.0); ABG HCO3 50.8 mmol/L (20.0-26.0); ABG Methemoglobin 0.4 % (0.0-1.5); ABG Oxygen Saturation 98.7 % (95.0-99.0); ABG PCO2 80.7 mm Hg; ABG PH 7.417 pH Units (7.350-7.450); ABG PO2 69.9 mm Hg (80.0-90.0)
[2020-06-20] MEDS: PHENobarbital 20 MG/5 ML ORAL LIQD FEEDTUBE SCH ×3 (05:48→21:41)
[2020-06-20] MEDS: methylPREDNISolone Sod Succinate 40 MG/1 ML INJ IV SCH ×2 (05:48→17:25)
[2020-06-20] MEDS: INSULIN LISPRO 100 UNIT/ML VIAL 3 mL SUB-Q SCH ×3 (06:05→17:49)
[2020-06-20] MEDS: SENNOSIDES 8.6 MG TAB PO SCH ×2 (09:54→21:49)
[2020-06-20] MEDS: FAMOTIDINE 20 MG TAB PO SCH ×2 (09:54→22:00)
[2020-06-20] MEDS: QUEtiapine 100 MG TAB PO SCH ×2 (09:54→21:41)
[2020-06-20] MEDS: FOLIC ACID 1 MG TAB PO SCH (09:54)
[2020-06-20] MEDS: ACETAMINOPHEN 325 MG/10.15 ML ORAL LIQD UNIT DOSE FEEDTUBE PRN (09:55)
[2020-06-20] MEDS: DOCUSATE SODIUM 100 MG/10 ML ORAL LIQD PO SCH ×2 (09:55→21:48)
[2020-06-20] MEDS: ENOXAPARIN 120 MG/0.8 ML INJ SUB-Q SCH ×2 (09:55→21:41)
--- NOTE | 2020-06-20 10:29 | Progress Note ---
Assessment and Plan Assessment and plan: - Acute hypoxemic respiratory failure; Patient intubated and on vent support --Severe COVID-19 bilateral pneumonia Coronavirus protocol: IV steroid therapy, completed remdesivir, isolation precautions, contact precautions, prone positioning while in bed, pulmonary toilet. ID following SARS CoV-2 IgG positive patient is NOT a candidate for COVID convalescent plasma --Severe sepsis/septic shock, due to COVID 19 PNA cont pressors as needed -- Acute kidney injury (SEN) , likely vasomotor nephropathy Resolved, IV fluids, avoid nephrotoxins -- Alcohol dependence; no episodes of withdrawal symptoms Thiamine, folic acid, multivitamin, CIWA protocol. -- Elevated liver function tests Suspected secondary to alcoholic liver disease. Supportive care, alcohol cessat ion, patient counseled. --History of EtOH dependence -- DVT prophylaxis On therapeutic Lovenox 06/16/2020. Patient currently on mechanical ventilation with AC mode rate 30, tidal volume 500, FiO2 70% and PEEP of 16. Continue anticoagulation with Lovenox 110 milligrams subcu every 12 hours. Wean sedation of fentanyl/Versed as needed. Currently with IV steroids of Solu-Medrol 40 mg IV every 12 hours. Patient will likely need tracheostomy per pulmonary recommendations. Continue pressors to maintain MAP > 65. 06/17/2020. Patient currently on mechanical ventilation with AC mode rate 30, tidal volume 500, FiO2 65% and PEEP of 16. Continue anticoagulation with Lovenox 110 milligrams subcu every 12 hours. Wean sedation of fentanyl/Versed as needed. Currently with IV steroids of Solu-Medrol 40 mg IV every 12 hours. Patient will likely need tracheostomy per pulmonary recommendations. 06/18/2020. Patient currently on mechanical ventilation with AC mode rate 30, tidal volume 500, FiO2 70% and PEEP of 16. Continue Lovenox for anticoagulation and fentanyl/Versed for sedation. Wean steroids per pulmonary. CIWA protocol initiated for history of EtOH dependence 06/19/2020. Patient currently on mechanical ventilation with AC mode rate 30, tidal volume 500, FiO2 60% and PEEP of 16. Wean FiO2 as tolerated per protocol. Continue Lovenox for anticoagulation and fentanyl/Versed for sedation. Wean steroids per pulmonary. CIWA protocol initiated for history of EtOH dependence 06/20/2020. Patient currently on mechanical ventilation with AC mode rate 30, tidal volume 500, FiO2 60% and PEEP of 16. Wean FiO2 as tolerated, SBT per protocol. Continue Lovenox for anticoagulation and fentanyl/Versed for sedation. Wean steroids per pulmonary. Continue pressors to maintain MAP > 65 mmHg. Patient remains on ETT. Consider tracheostomy placement once oxygenation is better per pulmonary. CIWA protocol initiated for history of EtOH dependence. The high probability of a clinically significant, sudden or life threatening deterioration of the [respiratory] system(s) required my full and direct attention, intervention and personal management. The aggregate critical care time was [32] minutes. This time is in addition to time spent performing r eported procedures but includes the following: [x] Data Review and interpretation [x] Patient assessment and monitoring of vital signs [x] Documentation [x] Medication orders and management History Interval history: no new issues Hospitalist Physical - Constitutional Vitals: Temp Pulse Resp BP Pulse Ox 101.3 F H 125 H 38 H 98/51 94 06/20/20 08:00 06/20/20 10:16 06/20/20 10:16 06/20/20 10:16 06/20/20 10:16 General appearance: Present: no acute distress, other - EENT Eyes: Present: PERRL, EOM intact ENT: hearing intact, clear oral mucosa, dentition normal - Neck Neck: Present: supple, normal ROM - Respiratory Respiratory effort: normal Respiratory: bilateral: CTA - Cardiovascular Rhythm: regular Heart Sounds: Present: S1 & S2. Absent: gallop, rub - Extremities Extremities: no ischemia, No edema, Full ROM - Abdominal General gastrointestinal: soft, non-tender, non-distended, normal bowel sounds - Integumentary Integumentary: Present: clear, warm, dry - Neurologic Neurologic: CNII-XII intact, moves all extremities Results - Labs CBC & Chem 7: 06/16/20 04:00 06/16/20 04:00 Labs: Laboratory Last Values WBC 13.8 K/mm3 (4.5-11.0) H 06/16/20 04:00 RBC 2.03 M/mm3 (3.65-5.03) L 06/16/20 04:00 Hgb 7.6 gm/dl (11.8-15.2) L 06/16/20 04:00 Hct 20.7 % (35.5-45.6) L 06/16/20 04:00 MCV 102 fl (84-94) H 06/16/20 04:00 MCH 37 pg (28-32) H 06/16/20 04:00 MCHC 37 % (32-34) H 06/16/20 04:00 RDW 16.2 % (13.2-15.2) H 06/16/20 04:00 Plt Count 208 K/mm3 (140-440) 06/16/20 04:00 Lymph % (Auto) 4.4 % (13.4-35.0) L 06/16/20 04:00 [place] % (Auto) 3.6 % (0.0-7.3) 06/16/20 04:00 Eos % (Auto) 0.0 % (0.0-4.3) 06/16/20 04:00 Baso % (Auto) 0.3 % (0.0-1.8) 06/16/20 04:00 Lymph # (Auto) 0.6 K/mm3 (1.2-5.4) L 06/16/20 04:00 [place] # (Auto) 0.5 K/mm3 (0.0-0.8) 06/16/20 04:00 Eos # (Auto) 0.0 K/mm3 (0.0-0.4) 06/16/20 04:00 Baso # (Auto) 0.0 K/mm3 (0.0-0.1) 06/16/20 04:00 Add Manual Diff Complete 06/15/20 Unknown Total Counted 100 06/15/20 Unknown Seg Neutrophils % Puttier 06/16/20 04:00 Seg Neuts % (Manual) 83.0 % (40.0-70.0) H 06/15/20 Unknown Band Neutrophils % 0 % 06/15/20 Unknown Lymphocytes % (Manual) 8.0 % (13.4-35.0) L 06/15/20 Unknown Reactive Lymphs % (Man) 0 % 06/15/20 Unknown Monocytes % (Manual) 6.0 % (0.0-7.3) 06/15/20 Unknown Eosinophils % (Manual) 0 % (0.0-4.3) 06/15/20 Unknown Basophils % (Manual) 0 % (0.0-1.8) 06/15/20 Unknown Metamyelocytes % 3.0 % 06/15/20 Unknown Myelocytes % 0 % 06/15/20 Unknown Promyelocytes % 0 % 06/15/20 Unknown Blast Cells % 0 % 06/15/20 Unknown Nucleated RBC % Not Reportable 06/15/20 Unknown Seg Neutrophils # 12.7 K/mm3 (1.8-7.7) H 06/16/20 04:00 Seg Neutrophils # Man 17.2 K/mm3 (1.8-7.7) H 06/15/20 Unknown Band Neutrophils # 0.0 K/mm3 06/15/20 Unknown Lymphocytes # (Manual) 1.7 K/mm3 (1.2-5.4) 06/15/20 Unknown Abs React Lymphs (Man) 0.0 K/mm3 06/15/20 Unknown Monocytes # (Manual) 1.2 K/mm3 (0.0-0.8) H 06/15/20 Unknown Eosinophils # (Manual) 0.0 K/mm3 (0.0-0.4) 06/15/20 Unknown Basophils # (Manual) 0.0 K/mm3 (0.0-0.1) 06/15/20 Unknown Metamyelocytes # 0.6 K/mm3 06/15/20 Unknown Myelocytes # 0.0 K/mm3 06/15/20 Unknown Promyelocytes # 0.0 K/mm3 06/15/20 Unknown Blast Cells # 0.0 K/mm3 06/15/20 Unknown WBC Morphology Not Reportable 06/15/20 Unknown Hypersegmented Neuts Not Reportable 06/15/20 Unknown Hyposegmented Neuts Not Reportable 06/15/20 Unknown Hypogranular Neuts Not Reportable 06/15/20 Unknown Smudge Cells Not Reportable 06/15/20 Unknown Toxic Granulation Not Reportable 06/15/20 Unknown Toxic Vacuolation Not Reportable 06/15/20 Unknown Dohle Bodies Not Reportable 06/15/20 Unknown Pelger-Huet Anomaly Not Reportable 06/15/20 Unknown Jason Rods Not Reportable 06/15/20 Unknown Platelet Estimate Consistent w auto 06/15/20 Unknown Clumped Platelets Not Reportable 06/15/20 Unknown Plt Clumps, EDTA Not Reportable 06/15/20 Unknown Large Platelets Not Reportable 06/15/20 Unknown Giant Platelets Not Reportable 06/15/20 Unknown Platelet Satelliting Not Reportable 06/15/20 Unknown Plt Morphology Comment Not Reportable 06/15/20 Unknown RBC Morphology Not Reportable 06/15/20 Unknown Dimorphic RBCs Not Reportable 06/15/20 Unknown Polychromasia Few 06/15/20 Unknown Hypochromasia 1+ 06/15/20 Unknown Poikilocytosis Not Reportable 06/15/20 Unknown Anisocytosis 1+ 06/15/20 Unknown Microcytosis Not Reportable 06/15/20 Unknown Macrocytosis 1+ 06/15/20 Unknown Spherocytes Not Reportable 06/15/20 Unknown Pappenheimer Bodies Not Reportable 06/15/20 Unknown Sickle Cells Not Reportable 06/15/20 Unknown Target Cells Not Reportable 06/15/20 Unknown Tear Drop Cells Not Reportable 06/15/20 Unknown Ovalocytes Not Reportable 06/15/20 Unknown Stomatocytes Few 06/14/20 07:15 Helmet Cells Not Reportable 06/15/20 Unknown Sinclair-Lamboglia Bodies Not Reportable 06/15/20 Unknown [place] Rings Not Reportable 06/15/20 Unknown [place] Cells Not Reportable 06/15/20 Unknown Bite Cells Not Reportable 06/15/20 Unknown Crenated Cell Not Reportable 06/15/20 Unknown Elliptocytes Not Reportable 06/15/20 Unknown Acanthocytes (Spur) Not Reportable 06/15/20 Unknown Rouleaux Not Reportable 06/15/20 Unknown Hemoglobin C Crystals Not Reportable 06/15/20 Unknown Schistocytes Few 06/15/20 Unknown Malaria parasites Not Reportable 06/15/20 Unknown Josue Bodies Not Reportable 06/15/20 Unknown Hem Pathologist Commnt No 06/15/20 Unknown PT 14.4 Sec. (12.2-14.9) 06/13/20 14:14 INR 1.13 (0.87-1.13) 06/13/20 14:14 D-Dimer 1887.82 ng/mlDDU (0-234) H 05/20/20 08:16 ABG pH 7.417 pH Units (7.350-7.450) 06/20/20 03:33 POC ABG pCO2 83.1 mmHg (32.0-48.0) H 06/19/20 04:32 ABG pCO2 80.7 mm Hg 06/20/20 03:33 POC ABG pO2 65.8 mmHg (83-108) L 06/19/20 04:32 ABG pO2 69.9 mm Hg (80.0-90.0) L 06/20/20 03:33 POC ABG HCO3 49.2 06/19/20 04:32 ABG HCO3 50.8 mmol/L (20.0-26.0) H 06/20/20 03:33 ABG O2 Saturation 98.7 % (95.0-99.0) 06/20/20 03:33 ABG O2 Content 7.9 (0.0-44) 06/20/20 03:33 POC ABG Base Excess 21.2 06/19/20 04:32 ABG Base Excess 24.2 mmol/L (-2.0-3.0) H 06/20/20 03:33 ABG Hemoglobin 5.8 gm/dl (14.0-18.0) L 06/20/20 03:33 ABG Oxyhemoglobin 86.3 (94-98) L 05/09/20 15:56 ABG Carboxyhemoglobin 2.8 % (0.0-5.0) 06/20/20 03:33 ABG Methemoglobin 0.4 % (0.0-1.5) 06/20/20 03:33 ABG Sodium 144.4 mmol/L (136.0-145.0) 06/19/20 04:32 ABG Potassium 3.6 mmol/L (3.40-4.50) 06/19/20 04:32 ABG Chloride 96.0 mmol/L (98-107) L 06/19/20 04:32 ABG Glucose 297 mg/dL (65-95) H 06/19/20 04:32 Oxyhemoglobin 95.5 % (95.0-99.0) 06/20/20 03:33 Carboxyhemoglobin 1.3 (0.5-1.5) 05/09/20 15:56 FiO2 60 % 06/20/20 03:33 Sodium 130 mmol/L (137-145) L 06/16/20 04:00 Potassium 3.8 mmol/L (3.6-5.0) 06/16/20 04:00 Chloride 88.9 mmol/L (98-107) L 06/16/20 04:00 Carbon Dioxide 36 mmol/L (22-30) H 06/16/20 04:00 Anion Gap 9 mmol/L 06/16/20 04:00 BUN 20 mg/dL (9-20) 06/16/20 04:00 Creatinine 0.3 mg/dL (0.8-1.3) L 06/16/20 04:00 Estimated GFR > 60 ml/min 06/16/20 04:00 BUN/Creatinine Ratio 67 % 06/16/20 04:00 Glucose 276 mg/dL (75-100) H 06/16/20 04:00 POC Glucose 182 mg/dL (70-105) H 06/20/20 06:01 Lactic Acid 1.80 mmol/L (0.7-2.0) 05/09/20 Unknown Calcium 8.4 mg/dL (8.4-10.2) 06/16/20 04:00 Phosphorus 3.10 mg/dL (2.5-4.5) 06/15/20 04:00 Magnesium 1.90 mg/dL (1.7-2.3) 06/15/20 04:00 Ferritin 1496.0 ng/mL (30.0-300.0) H 06/14/20 11:50 Total Bilirubin 2.00 mg/dL (0.1-1.2) H 06/15/20 04:00 Direct Bilirubin 0.6 mg/dL (0-0.2) H 05/11/20 07:30 Indirect Bilirubin 0.9 mg/dL 05/11/20 07:30 AST 47 units/L (5-40) H 06/15/20 04:00 ALT 77 units/L (7-56) H 06/15/20 04:00 Alkaline Phosphatase 96 units/L (35-129) 06/15/20 04:00 Lactate Dehydrogenase 705 units/L (91-180) H 05/20/20 08:16 C-Reactive Protein 3.10 mg/dL (0.00-1.30) H 05/20/20 08:16 Total Protein 6.3 g/dL (6.3-8.2) 06/15/20 04:00 Albumin 2.6 g/dL (3.9-5) L 06/15/20 04:00 Albumin/Globulin Ratio 0.7 % 06/15/20 04:00 Triglycerides 152 mg/dL (2-149) H 06/15/20 05:00 Procalcitonin 0.94 ng/mL (<0.15) 06/14/20 11:50 Arterial Blood Glucose 297 mg/dL (65-95) H 06/19/20 04:32 Arterial Blood Ionized Calcium 4.9 mg/dL (4.6-5.3) 06/19/20 04:32 Urine Color Fauzia (Yellow) 05/10/20 Unknown Urine Turbidity Clear (Clear) 05/10/20 Unknown Urine pH 5.0 (5.0-7.0) 05/10/20 Unknown Ur Specific [place] 1.019 (1.003-1.030) 05/10/20 Unknown Urine Protein 100 mg/dl mg/dL (Negative) 05/10/20 Unknown Urine Glucose (UA) Neg mg/dL (Negative) 05/10/20 Unknown Urine Ketones Neg mg/dL (Negative) 05/10/20 Unknown Urine Blood Lg (Negative) 05/10/20 Unknown Urine Nitrite Neg (Negative) 05/10/20 Unknown Urine Bilirubin Neg (Negative) 05/10/20 Unknown Urine Urobilinogen 2.0 mg/dL (<2.0) 05/10/20 Unknown Ur Leukocyte Esterase Neg (Negative) 05/10/20 Unknown Urine WBC (Auto) 11.0 /HPF (0.0-6.0) H 05/10/20 Unknown Urine RBC (Auto) 2.0 /HPF (0.0-6.0) 05/10/20 Unknown U Epithel Cells (Auto) 1.0 /HPF (0-13.0) 05/10/20 Unknown Urine Bacteria (Auto) 1+ /HPF (Negative) 05/10/20 Unknown Urine Mucus Few /HPF 05/10/20 Unknown Plasma/Serum Alcohol < 0.01 % (0-0.07) 05/09/20 14:20 Coronavirus (PCR) Positive (Negative) A 05/10/20 Unknown SARS-CoV-2 IgG Ab Reactive (NonReactive) A 05/11/20 07:30 Microbiology: Microbiology 06/14/20 14:39 Peripheral/Venous Blood Culture - Final NO GROWTH AFTER 5 DAYS 06/14/20 14:39 Peripheral/Venous Blood Culture - Final NO GROWTH AFTER 5 DAYS - Diagnostic Impressions Diagnostic Impressions: Echocardiogram 05/20/20 13:02 Transthoracic Echocardiogram Indication: CHF BP: 97/73 Conclusions *The study quality is technically very difficult and limited. *The left ventricular chamber size, wall thickness and systolic function are within normal limits. There are no wall motion abnormalities observed. Ejection fraction is normal. *The estimated ejection fraction is 60-65%. *The pericardium appears normal. Findings Procedure Info: The study quality is technically difficult. Left Ventricle: The left ventricular chamber size, wall thickness and systolic function are within normal limits. There are no wall motion abnormalities observed. Ejection fraction is normal. The estimated ejection fraction is 60-65%. Abnormal left ventricular diastolic filling is observed, consistent with impaired relaxation. Left Atrium: The left atrium is normal in size with no visual thrombus identified. Right Ventricle: The right ventricle is not well visualized. Right Atrium: The right atrium is not well visualized. Aortic Valve: The aortic valve is trileaflet. The leaflets are thin with normal excursion. There is no aortic stenosis or regurgitation present. Mitral Valve: The mitral valve appears normal in structure and function. Tricuspid Valve: The tricuspid valve appears normal in structure and function. Unable to estimate the right ventricular systolic pressure. Pulmonic Valve: The pulmonic valve is not well visualized. There is no evidence of pulmonic regurgitation. There is no pulmonic stenosis. Pericardium: The pericardium appears normal. Pulmonary Artery: The main pulmonary artery is not well visualized. Venous: The inferior vena cava appears normal in size. Measurements Chambers 2D Name Value Normal Range IVSd (2D) 0.83 cm (0.6 - 1.1) LVPWd (2D) 0.83 cm (0.6 - 1.1) LVIDd (2D) 3.88 cm (3.7 - 5.6) LVIDs (2D) 2.46 cm (2 - 3.8) LV FS (2D) 36.52 % - EF Teichholz (2D) 66.97 % - Ao root diameter (2D) 3.47 cm (2 - 3.7) Volumes/Mass Name Value Normal Range LA ESV SP 4CH (A/L) 22.4 ml - LA ESV SP 2CH (A/L) 22.89 ml - LA ESV BP (A/L) 23.06 ml - LA ESV SP 4CH (MOD) 21.09 ml - LA ESV SP 2CH (MOD) 22.44 ml - Diastolic/Systolic Function Name Value Normal Range MV E-wave Vmax 0.48 m/sec - MV deceleration time 156.3 msec - MV A-wave Vmax 0.59 m/sec - MV E:A ratio 0.81 ratio - Aortic Valve Name Value Normal Range AV Vmax 0.97 m/sec - AV VTI 14.49 cm - AV peak gradient 3.73 mmHg - AV mean gradient 1.89 mmHg - LVOT diameter 2.09 cm - LVOT Vmax 0.72 m/sec - LVOT VTI 10.21 cm - LVOT peak gradient 2.05 mmHg - LVOT mean gradient 1.03 mmHg - SV LVOT 35.17 ml - INNA (continuity Vmax) 2.55 cm2 - INNA (continuity VTI) 2.43 cm2 - Tricuspid Valve Name Value Normal Range TV E-wave Vmax 0.37 m/sec - Pulmonic Valve/Qp:Qs Name Value Normal Range PV Vmax 0.72 m/sec - PV peak gradient 2.06 mmHg - RVOT Vmax 0.85 m/sec - RVOT VTI 9.89 cm - RVOT peak gradient 2.9 mmHg - PV acceleration time 72.31 msec - Cantor/IV: Voiding Method Condom Catheter IV Catheter Type [Right Upper PICC Line arm] IV Catheter Type [Right CVL Internal Jugular] IV Catheter Type [Right Peripheral IV Forearm] IV Catheter Type [Left Forearm Peripheral IV ] IV Catheter Type [Left Wrist] INT / Saline Lock IV Catheter Type [Right Hand] INT / Saline Lock IV Catheter Type [Left Hand] INT / Saline Lock IV Catheter Type [Left Peripheral IV Antecubital] Active Medications - Current Medications Current Medications: Generic Name Dose Route Start Last Admin Trade Name Freq PRN Reason Stop Dose Admin Acetaminophen 650 mg 06/14/20 10:07 06/20/20 09:55 Tylenol FEEDTUBE 650 mg Q4H PRN Administration Pain, Mild (1-3) Alprazolam 0.25 mg 05/20/20 17:53 06/08/20 08:29 Alprazolam 0.25 Mg Tab PO 0.25 mg Q8H PRN Administration Anxiety Lipase/Protease/Amylase 1 each 05/22/20 13:01 Pancreaze 10,500 Unit FEEDTUBE PRN PRN For Clogged Feeding Tube Bisacodyl 10 mg 06/07/20 10:00 06/20/20 09:55 Dulcolax IA 10 mg QDAY DESIRE Administration Docusate Sodium 100 mg 05/28/20 14:00 06/20/20 09:55 Colace PO 100 mg BID DESIRE Administration Enoxaparin Sodium 110 mg 05/10/20 22:00 06/20/20 09:55 Enoxaparin 1 mg/kg (110 mg) 110 mg SUB-Q Administration Q12HR [facility] Protocol Famotidine 20 mg 05/25/20 22:00 06/20/20 09:54 Pepcid PO 20 mg BID DESIRE Administration Fentanyl 50 mcg 06/09/20 13:53 Sublimaze IV Q10MIN PRN ANALGESIA Folic Acid 1 mg 05/09/20 15:36 06/20/20 09:54 Folvite PO 1 mg QDAY [facility] Administration Hydrophilic Ointment 1 applic 05/21/20 20:33 Lip Therapy Vaseline TP Q2HR PRN Dry Lips Midazolam HCl 100 mg/ Sodium 100 mls @ 2 mls/hr 06/02/20 14:00 06/19/20 19:00 Chloride IV 5 mg/hr TITR DESIRE 5 mls/hr Administration Protocol 2 MG/HR Norepinephrine 4 mg in 250 mls @ 7.5 mls/hr 06/04/20 16:00 06/19/20 22:30 Levophed Drip 4 Mg/Ns 250 Ml IV 2 mcg/min TITR DESIRE 7.5 mls/hr Titration Protocol 2 MCG/MIN Propofol 500 mg in 50 mls @ 3.309 mls/hr 06/08/20 11:00 06/17/20 18:25 Propofol IV 35 mcg/kg/min TITR DESIRE 23.163 mls/hr Administration Protocol 5 MCG/KG/MIN Fentanyl Citrate 2,000 mcg in 100 mls @ 5.32 mls/hr 06/09/20 14:00 06/20/20 07:11 Fentanyl Drip Premix IV 4 mcg/kg/hr TITR DESIRE 21.28 mls/hr Administration Protocol 1 MCG/KG/HR Vasopressin 20 unit/ Sodium 101 mls @ 9.09 mls/hr 06/09/20 18:00 Chloride IV TITR DESIRE Protocol 0.03 UNITS/MIN Insulin Glargine 20 units 06/18/20 22:00 06/19/20 21:25 Insulin Glargine 100 Units/Ml SUB-Q 20 units QHS DESIRE Administration Insulin Human Lispro 0 unit 05/29/20 14:00 06/20/20 06:05 Humalog SUB-Q 3 unit Q6H DESIRE Administration Protocol Methylprednisolone Sodium Succinate 40 mg 05/20/20 18:00 06/20/20 05:48 Methylprednisolone Sod Succinate 40 Mg/1 Ml Inj IV 40 mg Q12H DESIRE Administration Metoprolol Tartrate 5 mg 05/20/20 17:52 06/17/20 12:36 Metoprolol IV 5 mg Q6HR PRN Administration Tachyarrhythmias Multi-Ingred Cream/Lotion/Oil/Oint 1 applic 05/21/20 20:33 Mineral Oil/Petrolatum, White Ophth Oint 3.5 Gm OU Q4HR PRN Dry Eye(s) Phenobarbital 20 mg 06/18/20 14:00 06/20/20 05:48 Phenobarbital 20 Mg/5 Ml Oral Liqd FEEDTUBE 20 mg Q8HR DESIRE Administration Polyethylene Glycol 17 gm 05/28/20 22:00 06/19/20 21:25 Miralax 3350 PO 17 gm QHS DESIRE Administration Quetiapine Fumarate 300 mg 06/10/20 22:00 06/20/20 09:54 Seroquel PO 300 mg BID DESIRE Administration Senna 17.2 mg 06/07/20 10:00 06/20/20 09:54 Senokot PO 17.2 mg BID DESIRE Administration Simple Syrup 15 ml 05/22/20 13:01 Simple Syrup FEEDTUBE PRN PRN Hypoglycemia Simple Syrup 30 ml 05/22/20 13:01 Simple Syrup FEEDTUBE PRN PRN Hypoglycemia Sodium Bicarbonate 325 mg 05/22/20 13:01 Sodium Bicarbonate FEEDTUBE PRN PRN For Clogged Feeding Tube Sodium Chloride 10 ml 05/09/20 22:00 06/20/20 10:05 Sodium Chloride Flush Syringe 10 Ml IV 10 ml BID DESIRE Administration Nutrition/Malnutrition Assess - Dietary Evaluation Nutrition/Malnutrition Findings: Nutrition Notes Start: 05/17/20 14:10 Freq: Status: Active Protocol: Document 06/17/20 12:23 AB (Rec: 06/17/20 12:29 AB [id number]) Co-Sign 06/17/20 12:23 LM Nutrition Notes Initial or Follow up Reassessment Current Diagnosis Sepsis,Respiratory Failure Other Pertinent Diagnosis Bilat pneu, COVID-19 (+), EtOH dependence Current Diet Vital HP at 65 ml/hr (goal rate) Labs/Tests POC BG 221 Pertinent Medications Propofol at 19.854 ml/hr Height 6 ft Weight 107.1 kg [place] Body Weight (kg) 80.90 BMI 32.0 Weight Status Obese Subjective/Other Information F/U for TF tolerate/rate and oral secretions. 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 Per RN, pt still having cream colored oral secretions. Percent of energy/protein needs met: 86%/84% Burn Absent Trauma Absent GI Symptoms None Current % PO Negligible Minimum of two criteria No physical signs of malnutrition #1 Nutrition Diagnosis Inadequate oral intake Diagnosis Progress(for reassessment Continues documentation) Is patient on ventilator? Yes Is Patient Ambulatory and/or Out of Bed No REE-([facility]-confined to bed) 2360.412 Kcal/Kg value to use for calculation 17 Approximate Energy Requirements Using 1821 kcal/Kg Calculation Used for Recommendations Kcal/kg Additional Notes Pro needs >2g/kg IBW: at least 162g/day Fluid needs 1ml/kcal Nutrition Intervention Change Diet Order: Continue TF with rate change Nutrition Support: Vital HP at 65ml/hr with 50ml water flush q4h. For hyponatremia, flush 50 ml q6h Kcal 1,560 Protein (gm) 136 Fluid (mL) 1,304 Goal #1 TF tolerance Goal #2 TF (at goal rate) to meet at least 75% energy and pro needs Anticipated Discharge Needs: Unable to identify at this time Follow-Up By: 06/24/20 Additional Comments F/U for TF tolerance and BM
[2020-06-20] MEDS: MIDAZOLAM 100 MG in SODIUM CHLORIDE 0.9% 80 ML IV SCH (11:36)
--- NOTE | 2020-06-20 13:33 | Progress Note ---
Assessment and Plan Acute hypoxemic respiratory failure due to COVID-19 Severe Sepsis Bilateral pneumonia Acute kidney injury (SEN) with acute tubular necrosis (ATN) Alcohol dependence Elevated liver function tests - reduced peep to 14 - mag citrate and lactulose added to bowel regimen - continue to wean supplemental oxygen for target O2 sat's > 92% acutely - continue to wean Levophed for target MAP > 65 mmHg (2 mics/min) - tracheostomy placement once oxygenation better / more hemodynamically stable - continue care as below otherwise; - he will need a tracheostomy once numbers better - continue Daily SAT and SBT assessment as tolerated - VAP bundle addressed - continue lung protective strategies - continue bronchodilators with pulmonary hygiene per RT - wean per pulmonary driven protocols otherwise - accuchecks with glycemic control per SSI (While critically ill target blood glucose of 140-180 mg/dL; avoid hypoglycemia) - sedation prn for target RASS -1 to -2 - continue enteral nutritional support at goal rate as tolerated - continue airborne and contact isolation - follow repeat COVID-19 testing - continue Zinc & Vit C supplementaion - continue systemic steroids for Asthma / severe COVID infection - Prone positioning as tolerated - continue empiric full dose anticoagulation re: elevated d-dimers / hypercoagulable state - NOT a candidate for COVID convalescent plasma - continue systemic steroids X >/= 10 days - completed remdesivir dosing (total 5 days) - Monitor liver function test on Remdesivir - trend inflammatory markers - ferritin, Ddimer, CRP, LDH; to aid clinical decision making - empiric AB's coverage per ID rec's otherwise - accuchecks with glycemic control per SSI (While critically ill target blood glucose of 140-180 mg/dL; avoid hypoglycemia) - avoid nephrotoxins, renally dose all medications - continue to avoid benzodiazepine's, reduce the possibility of delirium - continue wound care per RN / WCN - prn analgesia per CPOT score - Maintenance of sleep-wake cycle, avoid delirium - continue to avoid benzodiazepine's, reduce the possibility of delirium - aspiration precautions - G.I. & VTE prophylaxis - PT/OT/ROM exercises - continue mobility protocols for pressure ulcer prophylaxis - Monitor hemodynamics closely - continue other care per attending / other consultants - discharge planning ongoing concurrently .... Re-evaluate in am & prn CONDITION: CRITICAL PROGNOSIS: GUARDED CODE STATUS: FULL CODE The high probability of a clinically significant, sudden or life-threatening deterioration of the [respiratory, cardiovascular, hematologic & neurologic] system(s) required my full and direct attention, intervention and personal management. The aggregate critical care time was [35] minutes without overlap. Time includes spent on; [x] Data Review and interpretation [x] Patient assessment and monitoring of vital signs [x] Documentation [x] Medication orders and management Subjective Date of service: 06/20/20 Principal diagnosis: Ac hypoxemic resp failure; COVID-19; Severe Sepsis; Shaggy PNA; Alcohol Abuse Interval history: Patient is seen today for: Acute hypoxemic respiratory failure due to COVID-19; Severe Sepsis; Bilateral pneumonia; Alcohol dependence; Elevated liver function tests Seen and examined at bedside; 24hour events reviewed; nursing and respiratory care staff consulted; no adverse overnight events reported to me; resting in bed; remains on MVS; still withoutr BM per RN; oxygenation slowly improving but FiO2 still at 60% with minimal room to wean; no emesis or overt aspiration; afebrile Objective Vital Signs - 12hr 06/20/20 06/20/20 06/20/20 01:45 02:00 02:15 Temperature Pulse Rate 131 H 130 H 131 H Pulse Rate [ From Monitor] Respiratory 19 24 19 Rate Blood Pressure 102/60 115/61 105/60 O2 Sat by Pulse 97 94 95 Oximetry 06/20/20 06/20/20 06/20/20 02:30 02:45 03:00 Temperature Pulse Rate 122 H 130 H 127 H Pulse Rate [ From Monitor] Respiratory 38 H 29 H 33 H Rate Blood Pressure 105/60 139/69 148/73 O2 Sat by Pulse 94 93 93 Oximetry 06/20/20 06/20/20 06/20/20 03:15 03:30 03:45 Temperature Pulse Rate 132 H 131 H 129 H Pulse Rate [ From Monitor] Respiratory 29 H 26 H 28 H Rate Blood Pressure 132/68 127/66 123/68 O2 Sat by Pulse 94 91 94 Oximetry 06/20/20 06/20/20 06/20/20 03:55 04:00 04:16 Temperature 100.9 F H Pulse Rate 130 H 130 H 131 H Pulse Rate [ From Monitor] Respiratory 24 23 Rate Blood Pressure 123/68 117/64 117/64 O2 Sat by Pulse 95 92 96 Oximetry 06/20/20 06/20/20 06/20/20 04:30 04:45 05:00 Temperature Pulse Rate 128 H 127 H 131 H Pulse Rate [ From Monitor] Respiratory 22 30 H 27 H Rate Blood Pressure 117/71 107/74 104/68 O2 Sat by Pulse 92 92 92 Oximetry 06/20/20 06/20/20 06/20/20 05:16 05:30 05:45 Temperature Pulse Rate 128 H 129 H 131 H Pulse Rate [ From Monitor] Respiratory 29 H 31 H 38 H Rate Blood Pressure 130/83 132/78 133/78 O2 Sat by Pulse 93 93 Oximetry 06/20/20 06/20/20 06/20/20 06:00 06:15 06:30 Temperature Pulse Rate 121 H 127 H 125 H Pulse Rate [ From Monitor] Respiratory 35 H 32 H 26 H Rate Blood Pressure 136/88 128/77 137/72 O2 Sat by Pulse 91 94 95 Oximetry 06/20/20 06/20/20 06/20/20 06:45 07:00 07:15 Temperature Pulse Rate 126 H 125 H 124 H Pulse Rate [ From Monitor] Respiratory 21 32 H 32 H Rate Blood Pressure 128/79 143/81 144/79 O2 Sat by Pulse 93 92 93 Oximetry 06/20/20 06/20/20 06/20/20 07:30 07:46 07:49 Temperature Pulse Rate 136 H 137 H 110 H Pulse Rate [ From Monitor] Respiratory 30 H 21 Rate Blood Pressure 137/80 127/76 127/76 O2 Sat by Pulse 95 91 95 Oximetry 06/20/20 06/20/20 06/20/20 08:00 08:15 08:30 Temperature 101.3 F H Pulse Rate 121 H 131 H 127 H Pulse Rate [ 129 H From Monitor] Respiratory 29 H 28 H 23 Rate Blood Pressure 127/76 138/79 123/67 O2 Sat by Pulse 94 94 96 Oximetry 06/20/20 06/20/20 06/20/20 08:45 09:00 09:15 Temperature Pulse Rate 129 H 123 H 126 H Pulse Rate [ From Monitor] Respiratory 21 32 H 27 H Rate Blood Pressure 127/66 140/86 141/81 O2 Sat by Pulse 94 91 93 Oximetry 06/20/20 06/20/20 06/20/20 09:30 09:45 10:00 Temperature Pulse Rate 124 H 125 H 123 H Pulse Rate [ From Monitor] Respiratory 28 H 25 H 27 H Rate Blood Pressure 141/80 126/72 134/77 O2 Sat by Pulse 96 97 94 Oximetry 06/20/20 06/20/20 06/20/20 10:16 10:30 10:45 Temperature Pulse Rate 125 H 130 H 135 H Pulse Rate [ From Monitor] Respiratory 38 H 27 H 22 Rate Blood Pressure 98/51 85/50 92/57 O2 Sat by Pulse 94 92 91 Oximetry 06/20/20 06/20/20 06/20/20 11:00 11:15 11:30 Temperature Pulse Rate 134 H 133 H 139 H Pulse Rate [ From Monitor] Respiratory 21 22 26 H Rate Blood Pressure 80/62 90/56 100/67 O2 Sat by Pulse 92 93 95 Oximetry 06/20/20 06/20/20 06/20/20 11:44 11:45 12:00 Temperature 98.9 F Pulse Rate 132 H 136 H 132 H Pulse Rate [ From Monitor] Respiratory 27 H 19 Rate Blood Pressure 100/67 92/57 102/64 O2 Sat by Pulse 95 95 94 Oximetry Constitutional: appears uncomfortable, other (middle aged obese male with normal respiratory effort at rest on MVS) Eyes: non-icteric ENT: oropharynx moist, other (ETT 24 cm CHILO) Neck: supple, no JVD Effort: mildly labored Ascultation: Bilateral: diminished breath sounds, rhonchi (scant) Percussion: Bilateral: not dull Cardiovascular: regular rate and rhythm, other (No R/M) Gastrointestinal: normoactive bowel sounds, soft, non-tender, non-distended (protuberant) Integumentary: normal Extremities: no cyanosis, no edema, pulses normal, no ischemia or petechiae Neurologic: pupils equal and round, CN II-XII normal, other (unable top assess re: AMS) Psychiatric: other (sedated) CBC and BMP: 06/16/20 04:00 06/16/20 04:00 ABG, PT/INR, D-dimer: ABG ABG pH 7.417 pH Units (7.350-7.450) 06/20/20 03:33 POC ABG pCO2 83.1 mmHg (32.0-48.0) H 06/19/20 04:32 ABG pCO2 80.7 mm Hg 06/20/20 03:33 POC ABG pO2 65.8 mmHg (83-108) L 06/19/20 04:32 ABG pO2 69.9 mm Hg (80.0-90.0) L 06/20/20 03:33 POC ABG HCO3 49.2 06/19/20 04:32 ABG O2 Saturation 98.7 % (95.0-99.0) 06/20/20 03:33 PT/INR, D-dimer PT 14.4 Sec. (12.2-14.9) 06/13/20 14:14 INR 1.13 (0.87-1.13) 06/13/20 14:14 D-Dimer 1887.82 ng/mlDDU (0-234) H 05/20/20 08:16 Abnormal lab findings: Abnormal Labs 05/09/20 05/09/20 05/09/20 12:59 12:59 12:59 WBC 11.8 H RBC Hgb Hct MCV 96 H MCH 34 H MCHC 35 H RDW Lymph % (Auto) 6.9 L Lymph # (Auto) 0.8 L Seg Neutrophils % 87.5 H Seg Neuts % (Manual) Lymphocytes % (Manual) Nucleated RBC % Seg Neutrophils # 10.3 H Seg Neutrophils # Man Lymphocytes # (Manual) Monocytes # (Manual) D-Dimer ABG pH POC ABG pCO2 POC ABG pO2 ABG pO2 ABG HCO3 ABG O2 Saturation ABG Base Excess ABG Hemoglobin ABG Oxyhemoglobin ABG Sodium ABG Potassium ABG Chloride ABG Glucose Oxyhemoglobin Sodium 130 L Potassium 3.5 L Chloride 86.4 L Carbon Dioxide BUN 33 H Creatinine 2.3 H Glucose 156 H POC Glucose Lactic Acid Calcium Magnesium Ferritin Total Bilirubin 3.40 H Direct Bilirubin 1.7 H AST 385 H ALT 134 H Alkaline Phosphatase Lactate Dehydrogenase C-Reactive Protein Total Protein Albumin 3.0 L Triglycerides Arterial Blood Glucose Arterial Blood Ionized Calcium Urine WBC (Auto) Coronavirus (PCR) SARS-CoV-2 IgG Ab 05/09/20 05/09/20 05/09/20 12:59 12:59 12:59 WBC RBC Hgb Hct MCV MCH MCHC RDW Lymph % (Auto) Lymph # (Auto) Seg Neutrophils % Seg Neuts % (Manual) Lymphocytes % (Manual) Nucleated RBC % Seg Neutrophils # Seg Neutrophils # Man Lymphocytes # (Manual) Monocytes # (Manual) D-Dimer 3242.51 H ABG pH POC ABG pCO2 POC ABG pO2 ABG pO2 ABG HCO3 ABG O2 Saturation ABG Base Excess ABG Hemoglobin ABG Oxyhemoglobin ABG Sodium ABG Potassium ABG Chloride ABG Glucose Oxyhemoglobin Sodium Potassium Chloride Carbon Dioxide BUN Creatinine Glucose 158 H POC Glucose Lactic Acid 3.50 H* Calcium Magnesium Ferritin Total Bilirubin Direct Bilirubin AST ALT Alkaline Phosphatase Lactate Dehydrogenase 2166 H C-Reactive Protein 39.00 H Total Protein Albumin Triglycerides Arterial Blood Glucose Arterial Blood Ionized Calcium Urine WBC (Auto) Coronavirus (PCR) SARS-CoV-2 IgG Ab 05/09/20 05/09/20 05/09/20 12:59 14:20 14:20 WBC RBC Hgb Hct MCV MCH MCHC RDW Lymph % (Auto) Lymph # (Auto) Seg Neutrophils % Seg Neuts % (Manual) Lymphocytes % (Manual) Nucleated RBC % Seg Neutrophils # Seg Neutrophils # Man Lymphocytes # (Manual) Monocytes # (Manual) D-Dimer 2861.78 H ABG pH POC ABG pCO2 POC ABG pO2 ABG pO2 ABG HCO3 ABG O2 Saturation ABG Base Excess ABG Hemoglobin ABG Oxyhemoglobin ABG Sodium ABG Potassium ABG Chloride ABG Glucose Oxyhemoglobin Sodium Potassium Chloride Carbon Dioxide BUN Creatinine Glucose POC Glucose Lactic Acid 2.20 H* Calcium Magnesium Ferritin 94083.0 H Total Bilirubin Direct Bilirubin AST ALT Alkaline Phosphatase Lactate Dehydrogenase C-Reactive Protein Total Protein Albumin Triglycerides Arterial Blood Glucose Arterial Blood Ionized Calcium Urine WBC (Auto) Coronavirus (PCR) SARS-CoV-2 IgG Ab 05/09/20 05/09/20 05/09/20 14:20 14:20 15:56 WBC RBC Hgb Hct MCV MCH MCHC RDW Lymph % (Auto) Lymph # (Auto) Seg Neutrophils % Seg Neuts % (Manual) Lymphocytes % (Manual) Nucleated RBC % Seg Neutrophils # Seg Neutrophils # Man Lymphocytes # (Manual) Monocytes # (Manual) D-Dimer ABG pH POC ABG pCO2 POC ABG pO2 57.3 L ABG pO2 ABG HCO3 ABG O2 Saturation ABG Base Excess ABG Hemoglobin ABG Oxyhemoglobin 86.3 L ABG Sodium 129.9 L ABG Potassium ABG Chloride ABG Glucose 146 H Oxyhemoglobin Sodium Potassium Chloride Carbon Dioxide BUN Creatinine Glucose 143 H POC Glucose Lactic Acid Calcium Magnesium Ferritin 90129.0 H Total Bilirubin Direct Bilirubin AST ALT Alkaline Phosphatase Lactate Dehydrogenase 1953 H C-Reactive Protein 33.50 H Total Protein Albumin Triglycerides Arterial Blood Glucose 146 H Arterial Blood Ionized Calcium 3.9 L Urine WBC (Auto) Coronavirus (PCR) SARS-CoV-2 IgG Ab 05/10/20 05/10/20 05/10/20 10:32 10:32 18:50 WBC 15.4 H RBC Hgb Hct MCV 97 H MCH 33 H MCHC RDW 13.1 L Lymph % (Auto) Lymph # (Auto) Seg Neutrophils % Seg Neuts % (Manual) 89.0 H Lymphocytes % (Manual) 8.0 L Nucleated RBC % Seg Neutrophils # Seg Neutrophils # Man 13.7 H Lymphocytes # (Manual) Monocytes # (Manual) D-Dimer ABG pH POC ABG pCO2 POC ABG pO2 ABG pO2 ABG HCO3 ABG O2 Saturation ABG Base Excess ABG Hemoglobin ABG Oxyhemoglobin ABG Sodium ABG Potassium ABG Chloride ABG Glucose Oxyhemoglobin Sodium 136 L Potassium Chloride 97.4 L Carbon Dioxide BUN 37 H Creatinine 1.7 H Glucose 209 H POC Glucose Lactic Acid Calcium Magnesium Ferritin > 2000.0 H Total Bilirubin Direct Bilirubin AST ALT Alkaline Phosphatase Lactate Dehydrogenase C-Reactive Protein Total Protein Albumin Triglycerides Arterial Blood Glucose Arterial Blood Ionized Calcium Urine WBC (Auto) Coronavirus (PCR) SARS-CoV-2 IgG Ab 05/10/20 05/10/20 05/10/20 18:50 19:00 Unknown WBC RBC Hgb Hct MCV MCH MCHC RDW Lymph % (Auto) Lymph # (Auto) Seg Neutrophils % Seg Neuts % (Manual) Lymphocytes % (Manual) Nucleated RBC % Seg Neutrophils # Seg Neutrophils # Man Lymphocytes # (Manual) Monocytes # (Manual) D-Dimer > 46329 H ABG pH POC ABG pCO2 POC ABG pO2 ABG pO2 ABG HCO3 ABG O2 Saturation ABG Base Excess ABG Hemoglobin ABG Oxyhemoglobin ABG Sodium ABG Potassium ABG Chloride ABG Glucose Oxyhemoglobin Sodium Potassium Chloride Carbon Dioxide BUN Creatinine Glucose POC Glucose Lactic Acid Calcium Magnesium Ferritin Total Bilirubin Direct Bilirubin AST ALT Alkaline Phosphatase Lactate Dehydrogenase 1879 H C-Reactive Protein 24.80 H Total Protein Albumin Triglycerides Arterial Blood Glucose Arterial Blood Ionized Calcium Urine WBC (Auto) 11.0 H Coronavirus (PCR) SARS-CoV-2 IgG Ab 05/10/20 05/11/20 05/11/20 Unknown 07:30 07:30 WBC RBC Hgb Hct MCV MCH MCHC RDW Lymph % (Auto) Lymph # (Auto) Seg Neutrophils % Seg Neuts % (Manual) Lymphocytes % (Manual) Nucleated RBC % Seg Neutrophils # Seg Neutrophils # Man Lymphocytes # (Manual) Monocytes # (Manual) D-Dimer > 2000 H ABG pH POC ABG pCO2 POC ABG pO2 ABG pO2 ABG HCO3 ABG O2 Saturation ABG Base Excess ABG Hemoglobin ABG Oxyhemoglobin ABG Sodium ABG Potassium ABG Chloride ABG Glucose Oxyhemoglobin Sodium Potassium Chloride 96.3 L Carbon Dioxide BUN 36 H Creatinine Glucose 161 H POC Glucose Lactic Acid Calcium 8.3 L Magnesium Ferritin Total Bilirubin 1.50 H Direct Bilirubin 0.6 H AST 178 H ALT 111 H Alkaline Phosphatase Lactate Dehydrogenase C-Reactive Protein Total Protein Albumin 3.0 L Triglycerides Arterial Blood Glucose Arterial Blood Ionized Calcium Urine WBC (Auto) Coronavirus (PCR) Positive A SARS-CoV-2 IgG Ab 05/11/20 05/11/20 05/11/20 07:30 07:30 07:30 WBC RBC Hgb Hct MCV MCH MCHC RDW Lymph % (Auto) Lymph # (Auto) Seg Neutrophils % Seg Neuts % (Manual) Lymphocytes % (Manual) Nucleated RBC % Seg Neutrophils # Seg Neutrophils # Man Lymphocytes # (Manual) Monocytes # (Manual) D-Dimer ABG pH POC ABG pCO2 POC ABG pO2 ABG pO2 ABG HCO3 ABG O2 Saturation ABG Base Excess ABG Hemoglobin ABG Oxyhemoglobin ABG Sodium ABG Potassium ABG Chloride ABG Glucose Oxyhemoglobin Sodium Potassium Chloride Carbon Dioxide BUN Creatinine Glucose POC Glucose Lactic Acid Calcium Magnesium Ferritin 66133.0 H Total Bilirubin Direct Bilirubin AST ALT Alkaline Phosphatase Lactate Dehydrogenase 1523 H C-Reactive Protein 12.90 H Total Protein Albumin Triglycerides Arterial Blood Glucose Arterial Blood Ionized Calcium Urine WBC (Auto) Coronavirus (PCR) SARS-CoV-2 IgG Ab Reactive A 05/13/20 05/13/20 05/15/20 05:20 05:20 08:15 WBC RBC Hgb Hct MCV MCH MCHC RDW Lymph % (Auto) Lymph # (Auto) Seg Neutrophils % Seg Neuts % (Manual) Lymphocytes % (Manual) Nucleated RBC % Seg Neutrophils # Seg Neutrophils # Man Lymphocytes # (Manual) Monocytes # (Manual) D-Dimer > 77325 H 5318.28 H ABG pH POC ABG pCO2 POC ABG pO2 ABG pO2 ABG HCO3 ABG O2 Saturation ABG Base Excess ABG Hemoglobin ABG Oxyhemoglobin ABG Sodium ABG Potassium ABG Chloride ABG Glucose Oxyhemoglobin Sodium Potassium Chloride Carbon Dioxide 32 H BUN 30 H Creatinine Glucose 156 H POC Glucose Lactic Acid Calcium Magnesium 2.60 H Ferritin Total Bilirubin 1.40 H Direct Bilirubin AST 121 H ALT 119 H Alkaline Phosphatase Lactate Dehydrogenase 957 H C-Reactive Protein 4.00 H Total Protein Albumin 3.0 L Triglycerides Arterial Blood Glucose Arterial Blood Ionized Calcium Urine WBC (Auto) Coronavirus (PCR) SARS-CoV-2 IgG Ab 05/15/20 05/15/20 05/15/20 08:15 08:15 08:15 WBC 12.4 H RBC Hgb Hct MCV 98 H MCH 33 H MCHC RDW Lymph % (Auto) 9.7 L Lymph # (Auto) Seg Neutrophils % 86.8 H Seg Neuts % (Manual) Lymphocytes % (Manual) Nucleated RBC % Seg Neutrophils # 10.8 H Seg Neutrophils # Man Lymphocytes # (Manual) Monocytes # (Manual) D-Dimer ABG pH POC ABG pCO2 POC ABG pO2 ABG pO2 ABG HCO3 ABG O2 Saturation ABG Base Excess ABG Hemoglobin ABG Oxyhemoglobin ABG Sodium ABG Potassium ABG Chloride ABG Glucose Oxyhemoglobin Sodium Potassium Chloride 94.8 L Carbon Dioxide 32 H BUN 22 H Creatinine Glucose 115 H POC Glucose Lactic Acid Calcium 8.3 L Magnesium Ferritin 2494.0 H Total Bilirubin Direct Bilirubin AST 73 H ALT 121 H Alkaline Phosphatase Lactate Dehydrogenase 835 H C-Reactive Protein 3.40 H Total Protein 6.1 L Albumin 3.0 L Triglycerides Arterial Blood Glucose Arterial Blood Ionized Calcium Urine WBC (Auto) Coronavirus (PCR) SARS-CoV-2 IgG Ab 05/17/20 05/17/20 05/17/20 05:50 05:50 05:50 WBC RBC Hgb Hct MCV MCH MCHC RDW Lymph % (Auto) Lymph # (Auto) Seg Neutrophils % Seg Neuts % (Manual) Lymphocytes % (Manual) Nucleated RBC % Seg Neutrophils # Seg Neutrophils # Man Lymphocytes # (Manual) Monocytes # (Manual) D-Dimer 2911.42 H ABG pH POC ABG pCO2 POC ABG pO2 ABG pO2 ABG HCO3 ABG O2 Saturation ABG Base Excess ABG Hemoglobin ABG Oxyhemoglobin ABG Sodium ABG Potassium ABG Chloride ABG Glucose Oxyhemoglobin Sodium 136 L Potassium Chloride 96.0 L Carbon Dioxide 34 H BUN 22 H Creatinine Glucose 140 H POC Glucose Lactic Acid Calcium Magnesium Ferritin 2082.0 H Total Bilirubin Direct Bilirubin AST ALT 75 H Alkaline Phosphatase Lactate Dehydrogenase 601 H C-Reactive Protein 2.70 H Total Protein Albumin 2.9 L Triglycerides Arterial Blood Glucose Arterial Blood Ionized Calcium Urine WBC (Auto) Coronavirus (PCR) SARS-CoV-2 IgG Ab 05/17/20 05/18/20 05/20/20 05:50 12:22 08:16 WBC RBC Hgb Hct MCV 98 H MCH 33 H MCHC RDW Lymph % (Auto) 8.0 L Lymph # (Auto) 0.8 L Seg Neutrophils % 89.3 H Seg Neuts % (Manual) Lymphocytes % (Manual) Nucleated RBC % Seg Neutrophils # 8.8 H Seg Neutrophils # Man Lymphocytes # (Manual) Monocytes # (Manual) D-Dimer 1887.82 H ABG pH POC ABG pCO2 POC ABG pO2 ABG pO2 ABG HCO3 ABG O2 Saturation ABG Base Excess ABG Hemoglobin ABG Oxyhemoglobin ABG Sodium ABG Potassium ABG Chloride ABG Glucose Oxyhemoglobin Sodium Potassium Chloride Carbon Dioxide BUN Creatinine Glucose POC Glucose 178 H Lactic Acid Calcium Magnesium Ferritin Total Bilirubin Direct Bilirubin AST ALT Alkaline Phosphatase Lactate Dehydrogenase C-Reactive Protein Total Protein Albumin Triglycerides Arterial Blood Glucose Arterial Blood Ionized Calcium Urine WBC (Auto) Coronavirus (PCR) SARS-CoV-2 IgG Ab 05/20/20 05/20/20 05/21/20 08:16 08:16 21:10 WBC RBC Hgb Hct MCV MCH MCHC RDW Lymph % (Auto) Lymph # (Auto) Seg Neutrophils % Seg Neuts % (Manual) Lymphocytes % (Manual) Nucleated RBC % Seg Neutrophils # Seg Neutrophils # Man Lymphocytes # (Manual) Monocytes # (Manual) D-Dimer ABG pH 7.483 H POC ABG pCO2 POC ABG pO2 ABG pO2 50.0 L ABG HCO3 27.0 H ABG O2 Saturation 86.2 L ABG Base Excess 3.7 H ABG Hemoglobin ABG Oxyhemoglobin ABG Sodium ABG Potassium ABG Chloride ABG Glucose Oxyhemoglobin 84.2 L Sodium Potassium Chloride Carbon Dioxide BUN Creatinine Glucose POC Glucose Lactic Acid Calcium Magnesium Ferritin 1960.0 H Total Bilirubin Direct Bilirubin AST ALT Alkaline Phosphatase Lactate Dehydrogenase 705 H C-Reactive Protein 3.10 H Total Protein Albumin Triglycerides Arterial Blood Glucose Arterial Blood Ionized Calcium Urine WBC (Auto) Coronavirus (PCR) SARS-CoV-2 IgG Ab 05/22/20 05/22/20 05/22/20 04:01 07:53 07:53 WBC 19.2 H RBC Hgb Hct MCV 98 H MCH 34 H MCHC RDW Lymph % (Auto) Lymph # (Auto) Seg Neutrophils % Seg Neuts % (Manual) 96.0 H Lymphocytes % (Manual) 1.0 L Nucleated RBC % Seg Neutrophils # Seg Neutrophils # Man 18.4 H Lymphocytes # (Manual) 0.2 L Monocytes # (Manual) D-Dimer ABG pH POC ABG pCO2 53.8 H POC ABG pO2 125.5 H ABG pO2 ABG HCO3 ABG O2 Saturation ABG Base Excess ABG Hemoglobin ABG Oxyhemoglobin ABG Sodium 131.8 L ABG Potassium 4.8 H ABG Chloride 94.0 L ABG Glucose 163 H Oxyhemoglobin Sodium 131 L Potassium Chloride 93.4 L Carbon Dioxide BUN 40 H Creatinine Glucose 176 H POC Glucose Lactic Acid Calcium Magnesium 2.70 H Ferritin Total Bilirubin 1.80 H Direct Bilirubin AST 45 H ALT 116 H Alkaline Phosphatase 181 H Lactate Dehydrogenase C-Reactive Protein Total Protein Albumin 2.6 L Triglycerides Arterial Blood Glucose 163 H Arterial Blood Ionized Calcium 4.5 L Urine WBC (Auto) Coronavirus (PCR) SARS-CoV-2 IgG Ab 05/23/20 05/24/20 05/24/20 04:17 03:07 04:08 WBC RBC Hgb Hct MCV MCH MCHC RDW Lymph % (Auto) Lymph # (Auto) Seg Neutrophils % Seg Neuts % (Manual) Lymphocytes % (Manual) Nucleated RBC % Seg Neutrophils # Seg Neutrophils # Man Lymphocytes # (Manual) Monocytes # (Manual) D-Dimer ABG pH 7.328 L POC ABG pCO2 POC ABG pO2 ABG pO2 72.8 L 73.4 L ABG HCO3 31.0 H 34.0 H ABG O2 Saturation 93.5 L ABG Base Excess 3.5 H 7.7 H ABG Hemoglobin 13.3 L 12.1 L ABG Oxyhemoglobin ABG Sodium ABG Potassium ABG Chloride ABG Glucose Oxyhemoglobin 91.5 L 94.3 L Sodium Potassium Chloride Carbon Dioxide BUN Creatinine Glucose POC Glucose 155 H Lactic Acid Calcium Magnesium Ferritin Total Bilirubin Direct Bilirubin AST ALT Alkaline Phosphatase Lactate Dehydrogenase C-Reactive Protein Total Protein Albumin Triglycerides Arterial Blood Glucose Arterial Blood Ionized Calcium Urine WBC (Auto) Coronavirus (PCR) SARS-CoV-2 IgG Ab 05/24/20 05/24/20 05/24/20 09:33 12:21 17:52 WBC RBC Hgb Hct MCV MCH MCHC RDW Lymph % (Auto) Lymph # (Auto) Seg Neutrophils % Seg Neuts % (Manual) Lymphocytes % (Manual) Nucleated RBC % Seg Neutrophils # Seg Neutrophils # Man Lymphocytes # (Manual) Monocytes # (Manual) D-Dimer ABG pH POC ABG pCO2 POC ABG pO2 ABG pO2 ABG HCO3 ABG O2 Saturation ABG Base Excess ABG Hemoglobin ABG Oxyhemoglobin ABG Sodium ABG Potassium ABG Chloride ABG Glucose Oxyhemoglobin Sodium Potassium Chloride Carbon Dioxide 34 H D BUN 28 H Creatinine 0.7 L Glucose 168 H POC Glucose 173 H 164 H Lactic Acid Calcium Magnesium Ferritin Total Bilirubin Direct Bilirubin AST ALT Alkaline Phosphatase Lactate Dehydrogenase C-Reactive Protein Total Protein Albumin Triglycerides Arterial Blood Glucose Arterial Blood Ionized Calcium Urine WBC (Auto) Coronavirus (PCR) SARS-CoV-2 IgG Ab 05/24/20 05/25/20 05/25/20 23:47 04:29 05:46 WBC RBC Hgb Hct MCV MCH MCHC RDW Lymph % (Auto) Lymph # (Auto) Seg Neutrophils % Seg Neuts % (Manual) Lymphocytes % (Manual) Nucleated RBC % Seg Neutrophils # Seg Neutrophils # Man Lymphocytes # (Manual) Monocytes # (Manual) D-Dimer ABG pH POC ABG pCO2 68.6 H POC ABG pO2 ABG pO2 ABG HCO3 ABG O2 Saturation ABG Base Excess ABG Hemoglobin ABG Oxyhemoglobin ABG Sodium ABG Potassium 4.7 H ABG Chloride ABG Glucose 226 H Oxyhemoglobin Sodium Potassium Chloride Carbon Dioxide BUN Creatinine Glucose POC Glucose 171 H 201 H Lactic Acid Calcium Magnesium Ferritin Total Bilirubin Direct Bilirubin AST ALT Alkaline Phosphatase Lactate Dehydrogenase C-Reactive Protein Total Protein Albumin Triglycerides Arterial Blood Glucose 226 H Arterial Blood Ionized Calcium Urine WBC (Auto) Coronavirus (PCR) SARS-CoV-2 IgG Ab 05/25/20 05/25/20 05/25/20 08:37 08:37 12:38 WBC 12.0 H RBC 3.64 L Hgb Hct MCV 99 H MCH 33 H MCHC RDW Lymph % (Auto) Lymph # (Auto) Seg Neutrophils % Seg Neuts % (Manual) Lymphocytes % (Manual) Nucleated RBC % Seg Neutrophils # Seg Neutrophils # Man Lymphocytes # (Manual) Monocytes # (Manual) D-Dimer ABG pH POC ABG pCO2 POC ABG pO2 ABG pO2 ABG HCO3 ABG O2 Saturation ABG Base Excess ABG Hemoglobin ABG Oxyhemoglobin ABG Sodium ABG Potassium ABG Chloride ABG Glucose Oxyhemoglobin Sodium Potassium Chloride 97.3 L Carbon Dioxide 35 H BUN 25 H Creatinine 0.7 L Glucose 191 H POC Glucose 182 H Lactic Acid Calcium Magnesium Ferritin Total Bilirubin Direct Bilirubin AST ALT Alkaline Phosphatase Lactate Dehydrogenase C-Reactive Protein Total Protein Albumin Triglycerides Arterial Blood Glucose Arterial Blood Ionized Calcium Urine WBC (Auto) Coronavirus (PCR) SARS-CoV-2 IgG Ab 05/25/20 05/26/20 05/26/20 18:16 00:06 04:50 WBC RBC Hgb Hct MCV MCH MCHC RDW Lymph % (Auto) Lymph # (Auto) Seg Neutrophils % Seg Neuts % (Manual) Lymphocytes % (Manual) Nucleated RBC % Seg Neutrophils # Seg Neutrophils # Man Lymphocytes # (Manual) Monocytes # (Manual) D-Dimer ABG pH POC ABG pCO2 POC ABG pO2 ABG pO2 221.5 H ABG HCO3 40.4 H ABG O2 Saturation 99.3 H ABG Base Excess 12.8 H ABG Hemoglobin 10.4 L ABG Oxyhemoglobin ABG Sodium ABG Potassium ABG Chloride ABG Glucose Oxyhemoglobin Sodium Potassium Chloride Carbon Dioxide BUN Creatinine Glucose POC Glucose 176 H 152 H Lactic Acid Calcium Magnesium Ferritin Total Bilirubin Direct Bilirubin AST ALT Alkaline Phosphatase Lactate Dehydrogenase C-Reactive Protein Total Protein Albumin Triglycerides Arterial Blood Glucose Arterial Blood Ionized Calcium Urine WBC (Auto) Coronavirus (PCR) SARS-CoV-2 IgG Ab 05/26/20 05/26/20 05/26/20 06:11 07:51 07:51 WBC 13.4 H RBC 3.64 L Hgb Hct MCV 98 H MCH 33 H MCHC RDW Lymph % (Auto) Lymph # (Auto) Seg Neutrophils % Seg Neuts % (Manual) Lymphocytes % (Manual) Nucleated RBC % Seg Neutrophils # Seg Neutrophils # Man Lymphocytes # (Manual) Monocytes # (Manual) D-Dimer ABG pH POC ABG pCO2 POC ABG pO2 ABG pO2 ABG HCO3 ABG O2 Saturation ABG Base Excess ABG Hemoglobin ABG Oxyhemoglobin ABG Sodium ABG Potassium ABG Chloride ABG Glucose Oxyhemoglobin Sodium Potassium Chloride 96.6 L Carbon Dioxide 39 H BUN 29 H Creatinine 0.7 L Glucose 174 H POC Glucose 165 H Lactic Acid Calcium Magnesium Ferritin Total Bilirubin Direct Bilirubin AST ALT Alkaline Phosphatase Lactate Dehydrogenase C-Reactive Protein Total Protein Albumin Triglycerides Arterial Blood Glucose Arterial Blood Ionized Calcium Urine WBC (Auto) Coronavirus (PCR) SARS-CoV-2 IgG Ab 05/26/20 05/27/20 05/27/20 23:23 03:43 05:29 WBC RBC Hgb Hct MCV MCH MCHC RDW Lymph % (Auto) Lymph # (Auto) Seg Neutrophils % Seg Neuts % (Manual) Lymphocytes % (Manual) Nucleated RBC % Seg Neutrophils # Seg Neutrophils # Man Lymphocytes # (Manual) Monocytes # (Manual) D-Dimer ABG pH 7.480 H POC ABG pCO2 52.4 H POC ABG pO2 61.4 L ABG pO2 ABG HCO3 ABG O2 Saturation ABG Base Excess ABG Hemoglobin ABG Oxyhemoglobin ABG Sodium 134.9 L ABG Potassium ABG Chloride 95.0 L ABG Glucose 221 H Oxyhemoglobin Sodium Potassium Chloride Carbon Dioxide BUN Creatinine Glucose POC Glucose 169 H 227 H Lactic Acid Calcium Magnesium Ferritin Total Bilirubin Direct Bilirubin AST ALT Alkaline Phosphatase Lactate Dehydrogenase C-Reactive Protein Total Protein Albumin Triglycerides Arterial Blood Glucose 221 H Arterial Blood Ionized Calcium 4.5 L Urine WBC (Auto) Coronavirus (PCR) SARS-CoV-2 IgG Ab 05/27/20 05/27/20 05/27/20 07:19 12:18 13:50 WBC RBC Hgb Hct MCV MCH MCHC RDW Lymph % (Auto) Lymph # (Auto) Seg Neutrophils % Seg Neuts % (Manual) Lymphocytes % (Manual) Nucleated RBC % Seg Neutrophils # Seg Neutrophils # Man Lymphocytes # (Manual) Monocytes # (Manual) D-Dimer ABG pH POC ABG pCO2 POC ABG pO2 ABG pO2 ABG HCO3 ABG O2 Saturation ABG Base Excess ABG Hemoglobin ABG Oxyhemoglobin ABG Sodium ABG Potassium ABG Chloride ABG Glucose Oxyhemoglobin Sodium Potassium Chloride Carbon Dioxide BUN Creatinine Glucose POC Glucose 114 H 148 H Lactic Acid Calcium Magnesium Ferritin Total Bilirubin Direct Bilirubin AST ALT Alkaline Phosphatase Lactate Dehydrogenase C-Reactive Protein Total Protein Albumin Triglycerides 247 H Arterial Blood Glucose Arterial Blood Ionized Calcium Urine WBC (Auto) Coronavirus (PCR) SARS-CoV-2 IgG Ab 05/28/20 05/28/2020 00:13 04:16 05:22 WBC RBC Hgb Hct MCV MCH MCHC RDW Lymph % (Auto) Lymph # (Auto) Seg Neutrophils % Seg Neuts % (Manual) Lymphocytes % (Manual) Nucleated RBC % Seg Neutrophils # Seg Neutrophils # Man Lymphocytes # (Manual) Monocytes # (Manual) D-Dimer ABG pH POC ABG pCO2 64.4 H POC ABG pO2 60.5 L ABG pO2 ABG HCO3 ABG O2 Saturation ABG Base Excess ABG Hemoglobin ABG Oxyhemoglobin ABG Sodium ABG Potassium ABG Chloride 95.0 L ABG Glucose 209 H Oxyhemoglobin Sodium Potassium Chloride Carbon Dioxide BUN Creatinine Glucose POC Glucose 155 H 186 H Lactic Acid Calcium Magnesium Ferritin Total Bilirubin Direct Bilirubin AST ALT Alkaline Phosphatase Lactate Dehydrogenase C-Reactive Protein Total Protein Albumin Triglycerides Arterial Blood Glucose 209 H Arterial Blood Ionized Calcium Urine WBC (Auto) Coronavirus (PCR) SARS-CoV-2 IgG Ab 05/28/20 05/28/20 05/29/20 12:45 17:39 00:37 WBC RBC Hgb Hct MCV MCH MCHC RDW Lymph % (Auto) Lymph # (Auto) Seg Neutrophils % Seg Neuts % (Manual) Lymphocytes % (Manual) Nucleated RBC % Seg Neutrophils # Seg Neutrophils # Man Lymphocytes # (Manual) Monocytes # (Manual) D-Dimer ABG pH POC ABG pCO2 POC ABG pO2 ABG pO2 ABG HCO3 ABG O2 Saturation ABG Base Excess ABG Hemoglobin ABG Oxyhemoglobin ABG Sodium ABG Potassium ABG Chloride ABG Glucose Oxyhemoglobin Sodium Potassium Chloride Carbon Dioxide BUN Creatinine Glucose POC Glucose 143 H 164 H 221 H Lactic Acid Calcium Magnesium Ferritin Total Bilirubin Direct Bilirubin AST ALT Alkaline Phosphatase Lactate Dehydrogenase C-Reactive Protein Total Protein Albumin Triglycerides Arterial Blood Glucose Arterial Blood Ionized Calcium Urine WBC (Auto) Coronavirus (PCR) SARS-CoV-2 IgG Ab 05/29/20 05/29/20 05/29/20 04:15 05:33 12:34 WBC RBC Hgb Hct MCV MCH MCHC RDW Lymph % (Auto) Lymph # (Auto) Seg Neutrophils % Seg Neuts % (Manual) Lymphocytes % (Manual) Nucleated RBC % Seg Neutrophils # Seg Neutrophils # Man Lymphocytes # (Manual) Monocytes # (Manual) D-Dimer ABG pH 7.463 H POC ABG pCO2 56.3 H POC ABG pO2 81.2 L ABG pO2 ABG HCO3 ABG O2 Saturation ABG Base Excess ABG Hemoglobin ABG Oxyhemoglobin ABG Sodium ABG Potassium ABG Chloride 96.0 L ABG Glucose 194 H Oxyhemoglobin Sodium Potassium Chloride Carbon Dioxide BUN Creatinine Glucose POC Glucose 133 H 221 H Lactic Acid Calcium Magnesium Ferritin Total Bilirubin Direct Bilirubin AST ALT Alkaline Phosphatase Lactate Dehydrogenase C-Reactive Protein Total Protein Albumin Triglycerides Arterial Blood Glucose 194 H Arterial Blood Ionized Calcium 4.5 L Urine WBC (Auto) Coronavirus (PCR) SARS-CoV-2 IgG Ab 05/29/20 05/30/20 05/30/20 18:07 00:12 05:38 WBC RBC Hgb Hct MCV MCH MCHC RDW Lymph % (Auto) Lymph # (Auto) Seg Neutrophils % Seg Neuts % (Manual) Lymphocytes % (Manual) Nucleated RBC % Seg Neutrophils # Seg Neutrophils # Man Lymphocytes # (Manual) Monocytes # (Manual) D-Dimer ABG pH POC ABG pCO2 POC ABG pO2 ABG pO2 ABG HCO3 ABG O2 Saturation ABG Base Excess ABG Hemoglobin ABG Oxyhemoglobin ABG Sodium ABG Potassium ABG Chloride ABG Glucose Oxyhemoglobin Sodium Potassium Chloride Carbon Dioxide BUN Creatinine Glucose POC Glucose 162 H 190 H 208 H Lactic Acid Calcium Magnesium Ferritin Total Bilirubin Direct Bilirubin AST ALT Alkaline Phosphatase Lactate Dehydrogenase C-Reactive Protein Total Protein Albumin Triglycerides Arterial Blood Glucose Arterial Blood Ionized Calcium Urine WBC (Auto) Coronavirus (PCR) SARS-CoV-2 IgG Ab 05/30/20 05/30/20 05/30/20 09:30 11:35 11:54 WBC 12.4 H RBC 3.48 L Hgb 11.3 L Hct 34.6 L MCV 99 H MCH 33 H MCHC RDW Lymph % (Auto) Lymph # (Auto) Seg Neutrophils % Seg Neuts % (Manual) Lymphocytes % (Manual) Nucleated RBC % Seg Neutrophils # Seg Neutrophils # Man Lymphocytes # (Manual) Monocytes # (Manual) D-Dimer ABG pH 7.455 H POC ABG pCO2 57.5 H POC ABG pO2 81.5 L ABG pO2 ABG HCO3 ABG O2 Saturation ABG Base Excess ABG Hemoglobin ABG Oxyhemoglobin ABG Sodium ABG Potassium ABG Chloride 96.0 L ABG Glucose 204 H Oxyhemoglobin Sodium Potassium Chloride Carbon Dioxide BUN Creatinine Glucose POC Glucose 183 H Lactic Acid Calcium Magnesium Ferritin Total Bilirubin Direct Bilirubin AST ALT Alkaline Phosphatase Lactate Dehydrogenase C-Reactive Protein Total Protein Albumin Triglycerides Arterial Blood Glucose 204 H Arterial Blood Ionized Calcium Urine WBC (Auto) Coronavirus (PCR) SARS-CoV-2 IgG Ab 05/30/20 05/31/20 05/31/20 18:01 00:10 03:22 WBC RBC Hgb Hct MCV MCH MCHC RDW Lymph % (Auto) Lymph # (Auto) Seg Neutrophils % Seg Neuts % (Manual) Lymphocytes % (Manual) Nucleated RBC % Seg Neutrophils # Seg Neutrophils # Man Lymphocytes # (Manual) Monocytes # (Manual) D-Dimer ABG pH POC ABG pCO2 60.4 H POC ABG pO2 71.5 L ABG pO2 ABG HCO3 ABG O2 Saturation ABG Base Excess ABG Hemoglobin ABG Oxyhemoglobin ABG Sodium ABG Potassium ABG Chloride 96.0 L ABG Glucose 169 H Oxyhemoglobin Sodium Potassium Chloride Carbon Dioxide BUN Creatinine Glucose POC Glucose 184 H 135 H Lactic Acid Calcium Magnesium Ferritin Total Bilirubin Direct Bilirubin AST ALT Alkaline Phosphatase Lactate Dehydrogenase C-Reactive Protein Total Protein Albumin Triglycerides Arterial Blood Glucose 169 H Arterial Blood Ionized Calcium 4.5 L Urine WBC (Auto) Coronavirus (PCR) SARS-CoV-2 IgG Ab 05/31/20 05/31/20 05/31/20 05:24 11:18 14:41 WBC RBC Hgb Hct MCV MCH MCHC RDW Lymph % (Auto) Lymph # (Auto) Seg Neutrophils % Seg Neuts % (Manual) Lymphocytes % (Manual) Nucleated RBC % Seg Neutrophils # Seg Neutrophils # Man Lymphocytes # (Manual) Monocytes # (Manual) D-Dimer ABG pH POC ABG pCO2 POC ABG pO2 ABG pO2 ABG HCO3 ABG O2 Saturation ABG Base Excess ABG Hemoglobin ABG Oxyhemoglobin ABG Sodium ABG Potassium ABG Chloride ABG Glucose Oxyhemoglobin Sodium Potassium Chloride 96.8 L Carbon Dioxide 37 H BUN 31 H Creatinine 0.6 L Glucose 213 H POC Glucose 164 H 208 H Lactic Acid Calcium Magnesium Ferritin Total Bilirubin Direct Bilirubin AST ALT Alkaline Phosphatase Lactate Dehydrogenase C-Reactive Protein Total Protein Albumin Triglycerides Arterial Blood Glucose Arterial Blood Ionized Calcium Urine WBC (Auto) Coronavirus (PCR) SARS-CoV-2 IgG Ab 05/31/20 05/31/20 06/01/20 17:37 23:47 03:48 WBC RBC Hgb Hct MCV MCH MCHC RDW Lymph % (Auto) Lymph # (Auto) Seg Neutrophils % Seg Neuts % (Manual) Lymphocytes % (Manual) Nucleated RBC % Seg Neutrophils # Seg Neutrophils # Man Lymphocytes # (Manual) Monocytes # (Manual) D-Dimer ABG pH POC ABG pCO2 59.7 H POC ABG pO2 73.9 L ABG pO2 ABG HCO3 ABG O2 Saturation ABG Base Excess ABG Hemoglobin ABG Oxyhemoglobin ABG Sodium ABG Potassium ABG Chloride 95.0 L ABG Glucose 256 H Oxyhemoglobin Sodium Potassium Chloride Carbon Dioxide BUN Creatinine Glucose POC Glucose 168 H 178 H Lactic Acid Calcium Magnesium Ferritin Total Bilirubin Direct Bilirubin AST ALT Alkaline Phosphatase Lactate Dehydrogenase C-Reactive Protein Total Protein Albumin Triglycerides Arterial Blood Glucose 256 H Arterial Blood Ionized Calcium Urine WBC (Auto) Coronavirus (PCR) SARS-CoV-2 IgG Ab 06/01/20 06/01/20 06/01/20 05:01 07:47 07:47 WBC 14.4 H RBC 3.46 L Hgb 11.1 L Hct 34.3 L MCV 99 H MCH MCHC RDW Lymph % (Auto) Lymph # (Auto) Seg Neutrophils % Seg Neuts % (Manual) 86.0 H Lymphocytes % (Manual) 9.0 L Nucleated RBC % Seg Neutrophils # Seg Neutrophils # Man 12.4 H Lymphocytes # (Manual) Monocytes # (Manual) D-Dimer ABG pH POC ABG pCO2 POC ABG pO2 ABG pO2 ABG HCO3 ABG O2 Saturation ABG Base Excess ABG Hemoglobin ABG Oxyhemoglobin ABG Sodium ABG Potassium ABG Chloride ABG Glucose Oxyhemoglobin Sodium Potassium Chloride Carbon Dioxide BUN Creatinine Glucose POC Glucose 197 H Lactic Acid Calcium Magnesium Ferritin Total Bilirubin Direct Bilirubin AST ALT Alkaline Phosphatase Lactate Dehydrogenase C-Reactive Protein Total Protein Albumin Triglycerides 244 H Arterial Blood Glucose Arterial Blood Ionized Calcium Urine WBC (Auto) Coronavirus (PCR) SARS-CoV-2 IgG Ab 06/01/20 06/01/20 06/01/20 07:47 11:46 18:15 WBC RBC Hgb Hct MCV MCH MCHC RDW Lymph % (Auto) Lymph # (Auto) Seg Neutrophils % Seg Neuts % (Manual) Lymphocytes % (Manual) Nucleated RBC % Seg Neutrophils # Seg Neutrophils # Man Lymphocytes # (Manual) Monocytes # (Manual) D-Dimer ABG pH POC ABG pCO2 POC ABG pO2 ABG pO2 ABG HCO3 ABG O2 Saturation ABG Base Excess ABG Hemoglobin ABG Oxyhemoglobin ABG Sodium ABG Potassium ABG Chloride ABG Glucose Oxyhemoglobin Sodium Potassium Chloride 95.4 L Carbon Dioxide 35 H BUN 30 H Creatinine 0.5 L Glucose 214 H POC Glucose 181 H 221 H Lactic Acid Calcium Magnesium Ferritin Total Bilirubin Direct Bilirubin AST 54 H ALT 235 H Alkaline Phosphatase Lactate Dehydrogenase C-Reactive Protein Total Protein Albumin 2.9 L Triglycerides Arterial Blood Glucose Arterial Blood Ionized Calcium Urine WBC (Auto) Coronavirus (PCR) SARS-CoV-2 IgG Ab 06/01/20 06/02/20 06/02/20 23:12 04:00 05:31 WBC RBC Hgb Hct MCV MCH MCHC RDW Lymph % (Auto) Lymph # (Auto) Seg Neutrophils % Seg Neuts % (Manual) Lymphocytes % (Manual) Nucleated RBC % Seg Neutrophils # Seg Neutrophils # Man Lymphocytes # (Manual) Monocytes # (Manual) D-Dimer ABG pH 7.465 H POC ABG pCO2 POC ABG pO2 ABG pO2 203.4 H ABG HCO3 41.2 H ABG O2 Saturation 99.3 H ABG Base Excess 15.1 H ABG Hemoglobin 11.5 L ABG Oxyhemoglobin ABG Sodium ABG Potassium ABG Chloride ABG Glucose Oxyhemoglobin Sodium Potassium Chloride Carbon Dioxide BUN Creatinine Glucose POC Glucose 197 H 184 H Lactic Acid Calcium Magnesium Ferritin Total Bilirubin Direct Bilirubin AST ALT Alkaline Phosphatase Lactate Dehydrogenase C-Reactive Protein Total Protein Albumin Triglycerides Arterial Blood Glucose Arterial Blood Ionized Calcium Urine WBC (Auto) Coronavirus (PCR) SARS-CoV-2 IgG Ab 06/02/20 06/02/20 06/02/20 11:49 18:06 23:00 WBC RBC Hgb Hct MCV MCH MCHC RDW Lymph % (Auto) Lymph # (Auto) Seg Neutrophils % Seg Neuts % (Manual) Lymphocytes % (Manual) Nucleated RBC % Seg Neutrophils # Seg Neutrophils # Man Lymphocytes # (Manual) Monocytes # (Manual) D-Dimer ABG pH POC ABG pCO2 POC ABG pO2 ABG pO2 ABG HCO3 ABG O2 Saturation ABG Base Excess ABG Hemoglobin ABG Oxyhemoglobin ABG Sodium ABG Potassium ABG Chloride ABG Glucose Oxyhemoglobin Sodium Potassium Chloride Carbon Dioxide BUN Creatinine Glucose POC Glucose 195 H 177 H 228 H Lactic Acid Calcium Magnesium Ferritin Total Bilirubin Direct Bilirubin AST ALT Alkaline Phosphatase Lactate Dehydrogenase C-Reactive Protein Total Protein Albumin Triglycerides Arterial Blood Glucose Arterial Blood Ionized Calcium Urine WBC (Auto) Coronavirus (PCR) SARS-CoV-2 IgG Ab 06/03/20 06/03/20 06/03/20 03:58 05:19 12:21 WBC RBC Hgb Hct MCV MCH MCHC RDW Lymph % (Auto) Lymph # (Auto) Seg Neutrophils % Seg Neuts % (Manual) Lymphocytes % (Manual) Nucleated RBC % Seg Neutrophils # Seg Neutrophils # Man Lymphocytes # (Manual) Monocytes # (Manual) D-Dimer ABG pH POC ABG pCO2 POC ABG pO2 ABG pO2 171.0 H ABG HCO3 42.8 H ABG O2 Saturation ABG Base Excess 15.6 H ABG Hemoglobin 12.3 L ABG Oxyhemoglobin ABG Sodium ABG Potassium ABG Chloride ABG Glucose Oxyhemoglobin Sodium Potassium Chloride Carbon Dioxide BUN Creatinine Glucose POC Glucose 122 H 207 H Lactic Acid Calcium Magnesium Ferritin Total Bilirubin Direct Bilirubin AST ALT Alkaline Phosphatase Lactate Dehydrogenase C-Reactive Protein Total Protein Albumin Triglycerides Arterial Blood Glucose Arterial Blood Ionized Calcium Urine WBC (Auto) Coronavirus (PCR) SARS-CoV-2 IgG Ab 06/03/20 06/03/20 06/04/20 17:27 23:50 03:55 WBC RBC Hgb Hct MCV MCH MCHC RDW Lymph % (Auto) Lymph # (Auto) Seg Neutrophils % Seg Neuts % (Manual) Lymphocytes % (Manual) Nucleated RBC % Seg Neutrophils # Seg Neutrophils # Man Lymphocytes # (Manual) Monocytes # (Manual) D-Dimer ABG pH POC ABG pCO2 POC ABG pO2 ABG pO2 117.2 H ABG HCO3 42.4 H ABG O2 Saturation ABG Base Excess 15.3 H ABG Hemoglobin 10.5 L ABG Oxyhemoglobin ABG Sodium ABG Potassium ABG Chloride ABG Glucose Oxyhemoglobin Sodium Potassium Chloride Carbon Dioxide BUN Creatinine Glucose POC Glucose 157 H 214 H Lactic Acid Calcium Magnesium Ferritin Total Bilirubin Direct Bilirubin AST ALT Alkaline Phosphatase Lactate Dehydrogenase C-Reactive Protein Total Protein Albumin Triglycerides Arterial Blood Glucose Arterial Blood Ionized Calcium Urine WBC (Auto) Coronavirus (PCR) SARS-CoV-2 IgG Ab 06/04/20 06/04/20 06/04/20 05:49 11:41 17:30 WBC RBC Hgb Hct MCV MCH MCHC RDW Lymph % (Auto) Lymph # (Auto) Seg Neutrophils % Seg Neuts % (Manual) Lymphocytes % (Manual) Nucleated RBC % Seg Neutrophils # Seg Neutrophils # Man Lymphocytes # (Manual) Monocytes # (Manual) D-Dimer ABG pH POC ABG pCO2 POC ABG pO2 ABG pO2 ABG HCO3 ABG O2 Saturation ABG Base Excess ABG Hemoglobin ABG Oxyhemoglobin ABG Sodium ABG Potassium ABG Chloride ABG Glucose Oxyhemoglobin Sodium Potassium Chloride Carbon Dioxide BUN Creatinine Glucose POC Glucose 149 H 233 H 156 H Lactic Acid Calcium Magnesium Ferritin Total Bilirubin Direct Bilirubin AST ALT Alkaline Phosphatase Lactate Dehydrogenase C-Reactive Protein Total Protein Albumin Triglycerides Arterial Blood Glucose Arterial Blood Ionized Calcium Urine WBC (Auto) Coronavirus (PCR) SARS-CoV-2 IgG Ab 06/04/20 06/04/20 06/04/20 19:01 20:53 23:41 WBC RBC 3.18 L Hgb 10.8 L Hct 31.8 L MCV 100 H MCH 34 H MCHC RDW Lymph % (Auto) Lymph # (Auto) Seg Neutrophils % Seg Neuts % (Manual) 86.0 H Lymphocytes % (Manual) 10.0 L Nucleated RBC % 1.0 H Seg Neutrophils # Seg Neutrophils # Man 8.5 H Lymphocytes # (Manual) 1.0 L Monocytes # (Manual) D-Dimer ABG pH POC ABG pCO2 POC ABG pO2 ABG pO2 ABG HCO3 ABG O2 Saturation ABG Base Excess ABG Hemoglobin ABG Oxyhemoglobin ABG Sodium ABG Potassium ABG Chloride ABG Glucose Oxyhemoglobin Sodium Potassium 3.4 L D Chloride 96.5 L Carbon Dioxide 41 H* BUN 27 H Creatinine 0.5 L Glucose 173 H POC Glucose 217 H Lactic Acid Calcium Magnesium Ferritin Total Bilirubin Direct Bilirubin AST ALT Alkaline Phosphatase Lactate Dehydrogenase C-Reactive Protein Total Protein Albumin Triglycerides Arterial Blood Glucose Arterial Blood Ionized Calcium Urine WBC (Auto) Coronavirus (PCR) SARS-CoV-2 IgG Ab 06/05/20 06/05/20 06/05/20 06:05 11:54 12:35 WBC RBC Hgb Hct MCV MCH MCHC RDW Lymph % (Auto) Lymph # (Auto) Seg Neutrophils % Seg Neuts % (Manual) Lymphocytes % (Manual) Nucleated RBC % Seg Neutrophils # Seg Neutrophils # Man Lymphocytes # (Manual) Monocytes # (Manual) D-Dimer ABG pH POC ABG pCO2 POC ABG pO2 ABG pO2 127.9 H ABG HCO3 41.1 H ABG O2 Saturation ABG Base Excess 13.0 H ABG Hemoglobin 13.4 L ABG Oxyhemoglobin ABG Sodium ABG Potassium ABG Chloride ABG Glucose Oxyhemoglobin Sodium Potassium Chloride Carbon Dioxide BUN Creatinine Glucose POC Glucose 137 H 211 H Lactic Acid Calcium Magnesium Ferritin Total Bilirubin Direct Bilirubin AST ALT Alkaline Phosphatase Lactate Dehydrogenase C-Reactive Protein Total Protein Albumin Triglycerides Arterial Blood Glucose Arterial Blood Ionized Calcium Urine WBC (Auto) Coronavirus (PCR) SARS-CoV-2 IgG Ab 06/05/20 06/05/20 06/06/20 17:03 23:49 04:42 WBC RBC Hgb Hct MCV MCH MCHC RDW Lymph % (Auto) Lymph # (Auto) Seg Neutrophils % Seg Neuts % (Manual) Lymphocytes % (Manual) Nucleated RBC % Seg Neutrophils # Seg Neutrophils # Man Lymphocytes # (Manual) Monocytes # (Manual) D-Dimer ABG pH POC ABG pCO2 56.1 H POC ABG pO2 52.5 L ABG pO2 ABG HCO3 ABG O2 Saturation ABG Base Excess ABG Hemoglobin 11.7 L ABG Oxyhemoglobin ABG Sodium ABG Potassium 3.3 L ABG Chloride 95.0 L ABG Glucose 156 H Oxyhemoglobin Sodium Potassium Chloride Carbon Dioxide BUN Creatinine Glucose POC Glucose 159 H 194 H Lactic Acid Calcium Magnesium Ferritin Total Bilirubin Direct Bilirubin AST ALT Alkaline Phosphatase Lactate Dehydrogenase C-Reactive Protein Total Protein Albumin Triglycerides Arterial Blood Glucose 156 H Arterial Blood Ionized Calcium Urine WBC (Auto) Coronavirus (PCR) SARS-CoV-2 IgG Ab 06/06/20 06/06/20 06/06/20 05:57 12:06 17:38 WBC RBC Hgb Hct MCV MCH MCHC RDW Lymph % (Auto) Lymph # (Auto) Seg Neutrophils % Seg Neuts % (Manual) Lymphocytes % (Manual) Nucleated RBC % Seg Neutrophils # Seg Neutrophils # Man Lymphocytes # (Manual) Monocytes # (Manual) D-Dimer ABG pH POC ABG pCO2 POC ABG pO2 ABG pO2 ABG HCO3 ABG O2 Saturation ABG Base Excess ABG Hemoglobin ABG Oxyhemoglobin ABG Sodium ABG Potassium ABG Chloride ABG Glucose Oxyhemoglobin Sodium Potassium Chloride Carbon Dioxide BUN Creatinine Glucose POC Glucose 144 H 230 H 162 H Lactic Acid Calcium Magnesium Ferritin Total Bilirubin Direct Bilirubin AST ALT Alkaline Phosphatase Lactate Dehydrogenase C-Reactive Protein Total Protein Albumin Triglycerides Arterial Blood Glucose Arterial Blood Ionized Calcium Urine WBC (Auto) Coronavirus (PCR) SARS-CoV-2 IgG Ab 06/06/20 06/07/20 06/07/20 23:50 04:34 06:03 WBC RBC Hgb Hct MCV MCH MCHC RDW Lymph % (Auto) Lymph # (Auto) Seg Neutrophils % Seg Neuts % (Manual) Lymphocytes % (Manual) Nucleated RBC % Seg Neutrophils # Seg Neutrophils # Man Lymphocytes # (Manual) Monocytes # (Manual) D-Dimer ABG pH 7.511 H POC ABG pCO2 53.5 H POC ABG pO2 114.5 H ABG pO2 ABG HCO3 ABG O2 Saturation ABG Base Excess ABG Hemoglobin 9.4 L ABG Oxyhemoglobin ABG Sodium 134.5 L ABG Potassium ABG Chloride 94.0 L ABG Glucose 186 H Oxyhemoglobin Sodium Potassium Chloride Carbon Dioxide BUN Creatinine Glucose POC Glucose 181 H 155 H Lactic Acid Calcium Magnesium Ferritin Total Bilirubin Direct Bilirubin AST ALT Alkaline Phosphatase Lactate Dehydrogenase C-Reactive Protein Total Protein Albumin Triglycerides Arterial Blood Glucose 186 H Arterial Blood Ionized Calcium 4.5 L Urine WBC (Auto) Coronavirus (PCR) SARS-CoV-2 IgG Ab 06/07/20 06/07/20 06/07/20 13:41 14:58 14:58 WBC RBC 2.72 L Hgb 9.3 L Hct 27.2 L MCV 100 H MCH 34 H MCHC RDW Lymph % (Auto) Lymph # (Auto) Seg Neutrophils % Seg Neuts % (Manual) Lymphocytes % (Manual) Nucleated RBC % Seg Neutrophils # Seg Neutrophils # Man Lymphocytes # (Manual) Monocytes # (Manual) D-Dimer ABG pH POC ABG pCO2 POC ABG pO2 ABG pO2 ABG HCO3 ABG O2 Saturation ABG Base Excess ABG Hemoglobin ABG Oxyhemoglobin ABG Sodium ABG Potassium ABG Chloride ABG Glucose Oxyhemoglobin Sodium Potassium Chloride 93.5 L Carbon Dioxide 39 H BUN 22 H Creatinine 0.4 L Glucose 188 H POC Glucose 201 H Lactic Acid Calcium Magnesium Ferritin Total Bilirubin Direct Bilirubin AST 61 H ALT 273 H Alkaline Phosphatase Lactate Dehydrogenase C-Reactive Protein Total Protein 5.9 L Albumin 2.7 L Triglycerides Arterial Blood Glucose Arterial Blood Ionized Calcium Urine WBC (Auto) Coronavirus (PCR) SARS-CoV-2 IgG Ab 06/07/20 06/08/20 06/08/20 23:18 05:31 12:07 WBC RBC Hgb Hct MCV MCH MCHC RDW Lymph % (Auto) Lymph # (Auto) Seg Neutrophils % Seg Neuts % (Manual) Lymphocytes % (Manual) Nucleated RBC % Seg Neutrophils # Seg Neutrophils # Man Lymphocytes # (Manual) Monocytes # (Manual) D-Dimer ABG pH POC ABG pCO2 POC ABG pO2 ABG pO2 ABG HCO3 ABG O2 Saturation ABG Base Excess ABG Hemoglobin ABG Oxyhemoglobin ABG Sodium ABG Potassium ABG Chloride ABG Glucose Oxyhemoglobin Sodium Potassium Chloride Carbon Dioxide BUN Creatinine Glucose POC Glucose 214 H 129 H 179 H Lactic Acid Calcium Magnesium Ferritin Total Bilirubin Direct Bilirubin AST ALT Alkaline Phosphatase Lactate Dehydrogenase C-Reactive Protein Total Protein Albumin Triglycerides Arterial Blood Glucose Arterial Blood Ionized Calcium Urine WBC (Auto) Coronavirus (PCR) SARS-CoV-2 IgG Ab 06/08/20 06/08/20 06/09/20 18:18 23:35 05:42 WBC RBC Hgb Hct MCV MCH MCHC RDW Lymph % (Auto) Lymph # (Auto) Seg Neutrophils % Seg Neuts % (Manual) Lymphocytes % (Manual) Nucleated RBC % Seg Neutrophils # Seg Neutrophils # Man Lymphocytes # (Manual) Monocytes # (Manual) D-Dimer ABG pH POC ABG pCO2 POC ABG pO2 ABG pO2 ABG HCO3 ABG O2 Saturation ABG Base Excess ABG Hemoglobin ABG Oxyhemoglobin ABG Sodium ABG Potassium ABG Chloride ABG Glucose Oxyhemoglobin Sodium Potassium Chloride Carbon Dioxide BUN Creatinine Glucose POC Glucose 172 H 177 H 137 H Lactic Acid Calcium Magnesium Ferritin Total Bilirubin Direct Bilirubin AST ALT Alkaline Phosphatase Lactate Dehydrogenase C-Reactive Protein Total Protein Albumin Triglycerides Arterial Blood Glucose Arterial Blood Ionized Calcium Urine WBC (Auto) Coronavirus (PCR) SARS-CoV-2 IgG Ab 06/09/20 06/09/20 06/09/20 06:20 07:55 07:55 WBC 12.4 H RBC 3.26 L Hgb 11.1 L Hct 33.4 L D MCV 102 H MCH 34 H MCHC RDW Lymph % (Auto) Lymph # (Auto) Seg Neutrophils % Seg Neuts % (Manual) Lymphocytes % (Manual) Nucleated RBC % Seg Neutrophils # Seg Neutrophils # Man Lymphocytes # (Manual) Monocytes # (Manual) D-Dimer ABG pH 7.466 H POC ABG pCO2 50.7 H POC ABG pO2 53.0 L ABG pO2 ABG HCO3 ABG O2 Saturation ABG Base Excess ABG Hemoglobin ABG Oxyhemoglobin ABG Sodium ABG Potassium 2.9 L ABG Chloride 93.0 L ABG Glucose 138 H Oxyhemoglobin Sodium Potassium 3.0 L Chloride 92.3 L Carbon Dioxide 37 H BUN 21 H Creatinine 0.6 L Glucose 120 H POC Glucose Lactic Acid Calcium Magnesium Ferritin Total Bilirubin Direct Bilirubin AST ALT Alkaline Phosphatase Lactate Dehydrogenase C-Reactive Protein Total Protein Albumin Triglycerides Arterial Blood Glucose 138 H Arterial Blood Ionized Calcium 4.5 L Urine WBC (Auto) Coronavirus (PCR) SARS-CoV-2 IgG Ab 06/09/20 06/09/20 06/10/20 11:22 18:32 04:46 WBC RBC Hgb Hct MCV MCH MCHC RDW Lymph % (Auto) Lymph # (Auto) Seg Neutrophils % Seg Neuts % (Manual) Lymphocytes % (Manual) Nucleated RBC % Seg Neutrophils # Seg Neutrophils # Man Lymphocytes # (Manual) Monocytes # (Manual) D-Dimer ABG pH 7.501 H POC ABG pCO2 POC ABG pO2 126.5 H ABG pO2 ABG HCO3 ABG O2 Saturation ABG Base Excess ABG Hemoglobin 10.3 L ABG Oxyhemoglobin ABG Sodium ABG Potassium ABG Chloride ABG Glucose 220 H Oxyhemoglobin Sodium Potassium Chloride Carbon Dioxide BUN Creatinine Glucose POC Glucose 117 H 121 H Lactic Acid Calcium Magnesium Ferritin Total Bilirubin Direct Bilirubin AST ALT Alkaline Phosphatase Lactate Dehydrogenase C-Reactive Protein Total Protein Albumin Triglycerides Arterial Blood Glucose 220 H Arterial Blood Ionized Calcium Urine WBC (Auto) Coronavirus (PCR) SARS-CoV-2 IgG Ab 06/10/20 06/10/20 06/10/20 05:30 09:38 12:03 WBC RBC Hgb Hct MCV MCH MCHC RDW Lymph % (Auto) Lymph # (Auto) Seg Neutrophils % Seg Neuts % (Manual) Lymphocytes % (Manual) Nucleated RBC % Seg Neutrophils # Seg Neutrophils # Man Lymphocytes # (Manual) Monocytes # (Manual) D-Dimer ABG pH POC ABG pCO2 POC ABG pO2 ABG pO2 ABG HCO3 ABG O2 Saturation ABG Base Excess ABG Hemoglobin ABG Oxyhemoglobin ABG Sodium ABG Potassium ABG Chloride ABG Glucose Oxyhemoglobin Sodium Potassium Chloride Carbon Dioxide BUN Creatinine Glucose POC Glucose 181 H 204 H Lactic Acid Calcium Magnesium Ferritin Total Bilirubin Direct Bilirubin AST ALT Alkaline Phosphatase Lactate Dehydrogenase C-Reactive Protein Total Protein Albumin Triglycerides 738 H Arterial Blood Glucose Arterial Blood Ionized Calcium Urine WBC (Auto) Coronavirus (PCR) SARS-CoV-2 IgG Ab 06/10/20 06/11/20 06/11/20 17:17 00:04 04:38 WBC RBC Hgb Hct MCV MCH MCHC RDW Lymph % (Auto) Lymph # (Auto) Seg Neutrophils % Seg Neuts % (Manual) Lymphocytes % (Manual) Nucleated RBC % Seg Neutrophils # Seg Neutrophils # Man Lymphocytes # (Manual) Monocytes # (Manual) D-Dimer ABG pH 7.479 H POC ABG pCO2 POC ABG pO2 76.7 L ABG pO2 ABG HCO3 ABG O2 Saturation ABG Base Excess ABG Hemoglobin 9.8 L ABG Oxyhemoglobin ABG Sodium 135.8 L ABG Potassium ABG Chloride ABG Glucose 238 H Oxyhemoglobin Sodium Potassium Chloride Carbon Dioxide BUN Creatinine Glucose POC Glucose 156 H 178 H Lactic Acid Calcium Magnesium Ferritin Total Bilirubin Direct Bilirubin AST ALT Alkaline Phosphatase Lactate Dehydrogenase C-Reactive Protein Total Protein Albumin Triglycerides Arterial Blood Glucose 238 H Arterial Blood Ionized Calcium Urine WBC (Auto) Coronavirus (PCR) SARS-CoV-2 IgG Ab 06/11/20 06/11/20 06/11/20 05:21 06:52 11:50 WBC RBC Hgb Hct MCV MCH MCHC RDW Lymph % (Auto) Lymph # (Auto) Seg Neutrophils % Seg Neuts % (Manual) Lymphocytes % (Manual) Nucleated RBC % Seg Neutrophils # Seg Neutrophils # Man Lymphocytes # (Manual) Monocytes # (Manual) D-Dimer ABG pH POC ABG pCO2 POC ABG pO2 ABG pO2 ABG HCO3 ABG O2 Saturation ABG Base Excess ABG Hemoglobin ABG Oxyhemoglobin ABG Sodium ABG Potassium ABG Chloride ABG Glucose Oxyhemoglobin Sodium Potassium Chloride Carbon Dioxide BUN Creatinine Glucose POC Glucose 215 H 187 H Lactic Acid Calcium Magnesium Ferritin Total Bilirubin Direct Bilirubin AST ALT Alkaline Phosphatase Lactate Dehydrogenase C-Reactive Protein Total Protein Albumin Triglycerides 331 H Arterial Blood Glucose Arterial Blood Ionized Calcium Urine WBC (Auto) Coronavirus (PCR) SARS-CoV-2 IgG Ab 06/11/20 06/11/20 06/12/20 17:49 23:35 04:52 WBC RBC Hgb Hct MCV MCH MCHC RDW Lymph % (Auto) Lymph # (Auto) Seg Neutrophils % Seg Neuts % (Manual) Lymphocytes % (Manual) Nucleated RBC % Seg Neutrophils # Seg Neutrophils # Man Lymphocytes # (Manual) Monocytes # (Manual) D-Dimer ABG pH 7.486 H POC ABG pCO2 POC ABG pO2 ABG pO2 ABG HCO3 ABG O2 Saturation ABG Base Excess ABG Hemoglobin 9.4 L ABG Oxyhemoglobin ABG Sodium ABG Potassium 3.2 L ABG Chloride ABG Glucose 209 H Oxyhemoglobin Sodium Potassium Chloride Carbon Dioxide BUN Creatinine Glucose POC Glucose 211 H 200 H Lactic Acid Calcium Magnesium Ferritin Total Bilirubin Direct Bilirubin AST ALT Alkaline Phosphatase Lactate Dehydrogenase C-Reactive Protein Total Protein Albumin Triglycerides Arterial Blood Glucose 209 H Arterial Blood Ionized Calcium Urine WBC (Auto) Coronavirus (PCR) SARS-CoV-2 IgG Ab 06/12/20 06/12/20 06/12/20 05:13 11:47 18:33 WBC RBC Hgb Hct MCV MCH MCHC RDW Lymph % (Auto) Lymph # (Auto) Seg Neutrophils % Seg Neuts % (Manual) Lymphocytes % (Manual) Nucleated RBC % Seg Neutrophils # Seg Neutrophils # Man Lymphocytes # (Manual) Monocytes # (Manual) D-Dimer ABG pH POC ABG pCO2 POC ABG pO2 ABG pO2 ABG HCO3 ABG O2 Saturation ABG Base Excess ABG Hemoglobin ABG Oxyhemoglobin ABG Sodium ABG Potassium ABG Chloride ABG Glucose Oxyhemoglobin Sodium Potassium Chloride Carbon Dioxide BUN Creatinine Glucose POC Glucose 174 H 214 H 194 H Lactic Acid Calcium Magnesium Ferritin Total Bilirubin Direct Bilirubin AST ALT Alkaline Phosphatase Lactate Dehydrogenase C-Reactive Protein Total Protein Albumin Triglycerides Arterial Blood Glucose Arterial Blood Ionized Calcium Urine WBC (Auto) Coronavirus (PCR) SARS-CoV-2 IgG Ab 06/12/20 06/13/20 06/13/20 23:49 05:41 12:30 WBC RBC Hgb Hct MCV MCH MCHC RDW Lymph % (Auto) Lymph # (Auto) Seg Neutrophils % Seg Neuts % (Manual) Lymphocytes % (Manual) Nucleated RBC % Seg Neutrophils # Seg Neutrophils # Man Lymphocytes # (Manual) Monocytes # (Manual) D-Dimer ABG pH POC ABG pCO2 POC ABG pO2 ABG pO2 ABG HCO3 ABG O2 Saturation ABG Base Excess ABG Hemoglobin ABG Oxyhemoglobin ABG Sodium ABG Potassium ABG Chloride ABG Glucose Oxyhemoglobin Sodium Potassium Chloride Carbon Dioxide BUN Creatinine Glucose POC Glucose 160 H 150 H 181 H Lactic Acid Calcium Magnesium Ferritin Total Bilirubin Direct Bilirubin AST ALT Alkaline Phosphatase Lactate Dehydrogenase C-Reactive Protein Total Protein Albumin Triglycerides Arterial Blood Glucose Arterial Blood Ionized Calcium Urine WBC (Auto) Coronavirus (PCR) SARS-CoV-2 IgG Ab 06/13/20 06/13/20 06/13/20 14:14 17:48 23:27 WBC 12.8 H RBC 2.33 L Hgb 8.0 L Hct 23.3 L MCV 100 H MCH 34 H MCHC RDW 15.7 H Lymph % (Auto) Lymph # (Auto) Seg Neutrophils % Seg Neuts % (Manual) 85.0 H Lymphocytes % (Manual) 10.0 L Nucleated RBC % Seg Neutrophils # Seg Neutrophils # Man 10.9 H Lymphocytes # (Manual) Monocytes # (Manual) D-Dimer ABG pH POC ABG pCO2 POC ABG pO2 ABG pO2 ABG HCO3 ABG O2 Saturation ABG Base Excess ABG Hemoglobin ABG Oxyhemoglobin ABG Sodium ABG Potassium ABG Chloride ABG Glucose Oxyhemoglobin Sodium Potassium Chloride Carbon Dioxide BUN Creatinine Glucose POC Glucose 173 H 154 H Lactic Acid Calcium Magnesium Ferritin Total Bilirubin Direct Bilirubin AST ALT Alkaline Phosphatase Lactate Dehydrogenase C-Reactive Protein Total Protein Albumin Triglycerides Arterial Blood Glucose Arterial Blood Ionized Calcium Urine WBC (Auto) Coronavirus (PCR) SARS-CoV-2 IgG Ab 06/14/20 06/14/20 06/14/20 03:58 05:21 07:15 WBC 26.2 H RBC 2.97 L Hgb 9.7 L Hct 29.9 L D MCV 101 H MCH 33 H MCHC RDW 15.3 H Lymph % (Auto) Lymph # (Auto) Seg Neutrophils % Seg Neuts % (Manual) 79.0 H Lymphocytes % (Manual) 5.0 L Nucleated RBC % 3.0 H Seg Neutrophils # Seg Neutrophils # Man 20.7 H Lymphocytes # (Manual) Monocytes # (Manual) 1.3 H D-Dimer ABG pH POC ABG pCO2 51.5 H POC ABG pO2 70.0 L ABG pO2 ABG HCO3 ABG O2 Saturation ABG Base Excess ABG Hemoglobin 10.1 L ABG Oxyhemoglobin ABG Sodium 131.5 L ABG Potassium 3.1 L ABG Chloride 93.0 L ABG Glucose 188 H Oxyhemoglobin Sodium Potassium Chloride Carbon Dioxide BUN Creatinine Glucose POC Glucose 147 H Lactic Acid Calcium Magnesium Ferritin Total Bilirubin Direct Bilirubin AST ALT Alkaline Phosphatase Lactate Dehydrogenase C-Reactive Protein Total Protein Albumin Triglycerides Arterial Blood Glucose 188 H Arterial Blood Ionized Calcium Urine WBC (Auto) Coronavirus (PCR) SARS-CoV-2 IgG Ab 06/14/20 06/14/20 06/14/20 07:15 11:30 11:50 WBC RBC Hgb Hct MCV MCH MCHC RDW Lymph % (Auto) Lymph # (Auto) Seg Neutrophils % Seg Neuts % (Manual) Lymphocytes % (Manual) Nucleated RBC % Seg Neutrophils # Seg Neutrophils # Man Lymphocytes # (Manual) Monocytes # (Manual) D-Dimer ABG pH POC ABG pCO2 POC ABG pO2 ABG pO2 ABG HCO3 ABG O2 Saturation ABG Base Excess ABG Hemoglobin ABG Oxyhemoglobin ABG Sodium ABG Potassium ABG Chloride ABG Glucose Oxyhemoglobin Sodium 135 L Potassium 3.5 L Chloride 90.4 L Carbon Dioxide 38 H BUN Creatinine 0.5 L Glucose 190 H POC Glucose 176 H Lactic Acid Calcium Magnesium Ferritin 1496.0 H Total Bilirubin Direct Bilirubin AST ALT 81 H Alkaline Phosphatase Lactate Dehydrogenase C-Reactive Protein Total Protein Albumin 2.9 L Triglycerides Arterial Blood Glucose Arterial Blood Ionized Calcium Urine WBC (Auto) Coronavirus (PCR) SARS-CoV-2 IgG Ab 06/14/20 06/15/20 06/15/20 23:31 04:00 05:00 WBC RBC Hgb Hct MCV MCH MCHC RDW Lymph % (Auto) Lymph # (Auto) Seg Neutrophils % Seg Neuts % (Manual) Lymphocytes % (Manual) Nucleated RBC % Seg Neutrophils # Seg Neutrophils # Man Lymphocytes # (Manual) Monocytes # (Manual) D-Dimer ABG pH POC ABG pCO2 POC ABG pO2 ABG pO2 ABG HCO3 ABG O2 Saturation ABG Base Excess ABG Hemoglobin ABG Oxyhemoglobin ABG Sodium ABG Potassium ABG Chloride ABG Glucose Oxyhemoglobin Sodium 133 L Potassium Chloride 91.1 L Carbon Dioxide 34 H BUN Creatinine 0.4 L Glucose 159 H POC Glucose 200 H Lactic Acid Calcium Magnesium Ferritin Total Bilirubin 2.00 H Direct Bilirubin AST 47 H ALT 77 H Alkaline Phosphatase Lactate Dehydrogenase C-Reactive Protein Total Protein Albumin 2.6 L Triglycerides 152 H Arterial Blood Glucose Arterial Blood Ionized Calcium Urine WBC (Auto) Coronavirus (PCR) SARS-CoV-2 IgG Ab 06/15/20 06/15/20 06/15/20 05:35 06:27 11:38 WBC RBC Hgb Hct MCV MCH MCHC RDW Lymph % (Auto) Lymph # (Auto) Seg Neutrophils % Seg Neuts % (Manual) Lymphocytes % (Manual) Nucleated RBC % Seg Neutrophils # Seg Neutrophils # Man Lymphocytes # (Manual) Monocytes # (Manual) D-Dimer ABG pH POC ABG pCO2 61.0 H POC ABG pO2 67.9 L ABG pO2 ABG HCO3 ABG O2 Saturation ABG Base Excess ABG Hemoglobin 10.4 L ABG Oxyhemoglobin ABG Sodium 132.7 L ABG Potassium 3.3 L ABG Chloride 92.0 L ABG Glucose 158 H Oxyhemoglobin Sodium Potassium Chloride Carbon Dioxide BUN Creatinine Glucose POC Glucose 148 H 197 H Lactic Acid Calcium Magnesium Ferritin Total Bilirubin Direct Bilirubin AST ALT Alkaline Phosphatase Lactate Dehydrogenase C-Reactive Protein Total Protein Albumin Triglycerides Arterial Blood Glucose 158 H Arterial Blood Ionized Calcium Urine WBC (Auto) Coronavirus (PCR) SARS-CoV-2 IgG Ab 06/15/20 06/15/20 06/16/20 17:29 Unknown 00:01 WBC 20.7 H RBC 2.57 L Hgb 8.9 L Hct 25.8 L MCV 101 H MCH 35 H MCHC 35 H RDW 16.0 H Lymph % (Auto) Lymph # (Auto) Seg Neutrophils % Seg Neuts % (Manual) 83.0 H Lymphocytes % (Manual) 8.0 L Nucleated RBC % Seg Neutrophils # Seg Neutrophils # Man 17.2 H Lymphocytes # (Manual) Monocytes # (Manual) 1.2 H D-Dimer ABG pH POC ABG pCO2 POC ABG pO2 ABG pO2 ABG HCO3 ABG O2 Saturation ABG Base Excess ABG Hemoglobin ABG Oxyhemoglobin ABG Sodium ABG Potassium ABG Chloride ABG Glucose Oxyhemoglobin Sodium Potassium Chloride Carbon Dioxide BUN Creatinine Glucose POC Glucose 231 H 257 H Lactic Acid Calcium Magnesium Ferritin Total Bilirubin Direct Bilirubin AST ALT Alkaline Phosphatase Lactate Dehydrogenase C-Reactive Protein Total Protein Albumin Triglycerides Arterial Blood Glucose Arterial Blood Ionized Calcium Urine WBC (Auto) Coronavirus (PCR) SARS-CoV-2 IgG Ab 06/16/20 06/16/20 06/16/20 04:00 04:00 05:22 WBC 13.8 H RBC 2.03 L Hgb 7.6 L Hct 20.7 L MCV 102 H MCH 37 H MCHC 37 H RDW 16.2 H Lymph % (Auto) 4.4 L Lymph # (Auto) 0.6 L Seg Neutrophils % Seg Neuts % (Manual) Lymphocytes % (Manual) Nucleated RBC % Seg Neutrophils # 12.7 H Seg Neutrophils # Man Lymphocytes # (Manual) Monocytes # (Manual) D-Dimer ABG pH POC ABG pCO2 POC ABG pO2 ABG pO2 ABG HCO3 ABG O2 Saturation ABG Base Excess ABG Hemoglobin ABG Oxyhemoglobin ABG Sodium ABG Potassium ABG Chloride ABG Glucose Oxyhemoglobin Sodium 130 L Potassium Chloride 88.9 L Carbon Dioxide 36 H BUN Creatinine 0.3 L Glucose 276 H POC Glucose 250 H Lactic Acid Calcium Magnesium Ferritin Total Bilirubin Direct Bilirubin AST ALT Alkaline Phosphatase Lactate Dehydrogenase C-Reactive Protein Total Protein Albumin Triglycerides Arterial Blood Glucose Arterial Blood Ionized Calcium Urine WBC (Auto) Coronavirus (PCR) SARS-CoV-2 IgG Ab 06/16/20 06/16/20 06/17/20 12:44 18:18 00:39 WBC RBC Hgb Hct MCV MCH MCHC RDW Lymph % (Auto) Lymph # (Auto) Seg Neutrophils % Seg Neuts % (Manual) Lymphocytes % (Manual) Nucleated RBC % Seg Neutrophils # Seg Neutrophils # Man Lymphocytes # (Manual) Monocytes # (Manual) D-Dimer ABG pH POC ABG pCO2 POC ABG pO2 ABG pO2 ABG HCO3 ABG O2 Saturation ABG Base Excess ABG Hemoglobin ABG Oxyhemoglobin ABG Sodium ABG Potassium ABG Chloride ABG Glucose Oxyhemoglobin Sodium Potassium Chloride Carbon Dioxide BUN Creatinine Glucose POC Glucose 279 H 239 H 247 H Lactic Acid Calcium Magnesium Ferritin Total Bilirubin Direct Bilirubin AST ALT Alkaline Phosphatase Lactate Dehydrogenase C-Reactive Protein Total Protein Albumin Triglycerides Arterial Blood Glucose Arterial Blood Ionized Calcium Urine WBC (Auto) Coronavirus (PCR) SARS-CoV-2 IgG Ab 06/17/20 06/17/20 06/17/20 03:40 04:08 10:54 WBC RBC Hgb Hct MCV MCH MCHC RDW Lymph % (Auto) Lymph # (Auto) Seg Neutrophils % Seg Neuts % (Manual) Lymphocytes % (Manual) Nucleated RBC % Seg Neutrophils # Seg Neutrophils # Man Lymphocytes # (Manual) Monocytes # (Manual) D-Dimer ABG pH POC ABG pCO2 65.7 H POC ABG pO2 ABG pO2 ABG HCO3 ABG O2 Saturation ABG Base Excess ABG Hemoglobin 11.9 L ABG Oxyhemoglobin ABG Sodium ABG Potassium ABG Chloride 93.0 L ABG Glucose 244 H Oxyhemoglobin Sodium Potassium Chloride Carbon Dioxide BUN Creatinine Glucose POC Glucose 221 H 248 H Lactic Acid Calcium Magnesium Ferritin Total Bilirubin Direct Bilirubin AST ALT Alkaline Phosphatase Lactate Dehydrogenase C-Reactive Protein Total Protein Albumin Triglycerides Arterial Blood Glucose 244 H Arterial Blood Ionized Calcium Urine WBC (Auto) Coronavirus (PCR) SARS-CoV-2 IgG Ab 06/17/20 06/17/20 06/17/20 17:47 23:11 23:29 WBC RBC Hgb Hct MCV MCH MCHC RDW Lymph % (Auto) Lymph # (Auto) Seg Neutrophils % Seg Neuts % (Manual) Lymphocytes % (Manual) Nucleated RBC % Seg Neutrophils # Seg Neutrophils # Man Lymphocytes # (Manual) Monocytes # (Manual) D-Dimer ABG pH POC ABG pCO2 85.2 H POC ABG pO2 48.4 L ABG pO2 ABG HCO3 ABG O2 Saturation ABG Base Excess ABG Hemoglobin 8.0 L ABG Oxyhemoglobin ABG Sodium ABG Potassium ABG Chloride 95.0 L ABG Glucose 292 H Oxyhemoglobin Sodium Potassium Chloride Carbon Dioxide BUN Creatinine Glucose POC Glucose 245 H 252 H Lactic Acid Calcium Magnesium Ferritin Total Bilirubin Direct Bilirubin AST ALT Alkaline Phosphatase Lactate Dehydrogenase C-Reactive Protein Total Protein Albumin Triglycerides Arterial Blood Glucose 292 H Arterial Blood Ionized Calcium Urine WBC (Auto) Coronavirus (PCR) SARS-CoV-2 IgG Ab 06/18/20 06/18/20 06/18/20 03:14 05:34 11:47 WBC RBC Hgb Hct MCV MCH MCHC RDW Lymph % (Auto) Lymph # (Auto) Seg Neutrophils % Seg Neuts % (Manual) Lymphocytes % (Manual) Nucleated RBC % Seg Neutrophils # Seg Neutrophils # Man Lymphocytes # (Manual) Monocytes # (Manual) D-Dimer ABG pH POC ABG pCO2 65.4 H POC ABG pO2 160.7 H ABG pO2 ABG HCO3 ABG O2 Saturation ABG Base Excess ABG Hemoglobin 7.8 L ABG Oxyhemoglobin ABG Sodium ABG Potassium ABG Chloride 95.0 L ABG Glucose 251 H Oxyhemoglobin Sodium Potassium Chloride Carbon Dioxide BUN Creatinine Glucose POC Glucose 243 H 263 H Lactic Acid Calcium Magnesium Ferritin Total Bilirubin Direct Bilirubin AST ALT Alkaline Phosphatase Lactate Dehydrogenase C-Reactive Protein Total Protein Albumin Triglycerides Arterial Blood Glucose 251 H Arterial Blood Ionized Calcium Urine WBC (Auto) Coronavirus (PCR) SARS-CoV-2 IgG Ab 06/18/20 06/18/20 06/19/20 17:31 23:33 04:32 WBC RBC Hgb Hct MCV MCH MCHC RDW Lymph % (Auto) Lymph # (Auto) Seg Neutrophils % Seg Neuts % (Manual) Lymphocytes % (Manual) Nucleated RBC % Seg Neutrophils # Seg Neutrophils # Man Lymphocytes # (Manual) Monocytes # (Manual) D-Dimer ABG pH POC ABG pCO2 83.1 H POC ABG pO2 65.8 L ABG pO2 ABG HCO3 ABG O2 Saturation ABG Base Excess ABG Hemoglobin 8.9 L ABG Oxyhemoglobin ABG Sodium ABG Potassium ABG Chloride 96.0 L ABG Glucose 297 H Oxyhemoglobin Sodium Potassium Chloride Carbon Dioxide BUN Creatinine Glucose POC Glucose 286 H 238 H Lactic Acid Calcium Magnesium Ferritin Total Bilirubin Direct Bilirubin AST ALT Alkaline Phosphatase Lactate Dehydrogenase C-Reactive Protein Total Protein Albumin Triglycerides Arterial Blood Glucose 297 H Arterial Blood Ionized Calcium Urine WBC (Auto) Coronavirus (PCR) SARS-CoV-2 IgG Ab 06/19/20 06/19/20 06/19/20 05:55 11:20 17:12 WBC RBC Hgb Hct MCV MCH MCHC RDW Lymph % (Auto) Lymph # (Auto) Seg Neutrophils % Seg Neuts % (Manual) Lymphocytes % (Manual) Nucleated RBC % Seg Neutrophils # Seg Neutrophils # Man Lymphocytes # (Manual) Monocytes # (Manual) D-Dimer ABG pH POC ABG pCO2 POC ABG pO2 ABG pO2 ABG HCO3 ABG O2 Saturation ABG Base Excess ABG Hemoglobin ABG Oxyhemoglobin ABG Sodium ABG Potassium ABG Chloride ABG Glucose Oxyhemoglobin Sodium Potassium Chloride Carbon Dioxide BUN Creatinine Glucose POC Glucose 274 H 282 H 298 H Lactic Acid Calcium Magnesium Ferritin Total Bilirubin Direct Bilirubin AST ALT Alkaline Phosphatase Lactate Dehydrogenase C-Reactive Protein Total Protein Albumin Triglycerides Arterial Blood Glucose Arterial Blood Ionized Calcium Urine WBC (Auto) Coronavirus (PCR) SARS-CoV-2 IgG Ab 06/19/20 06/20/20 06/20/20 23:08 03:33 06:01 WBC RBC Hgb Hct MCV MCH MCHC RDW Lymph % (Auto) Lymph # (Auto) Seg Neutrophils % Seg Neuts % (Manual) Lymphocytes % (Manual) Nucleated RBC % Seg Neutrophils # Seg Neutrophils # Man Lymphocytes # (Manual) Monocytes # (Manual) D-Dimer ABG pH POC ABG pCO2 POC ABG pO2 ABG pO2 69.9 L ABG HCO3 50.8 H ABG O2 Saturation ABG Base Excess 24.2 H ABG Hemoglobin 5.8 L ABG Oxyhemoglobin ABG Sodium ABG Potassium ABG Chloride ABG Glucose Oxyhemoglobin Sodium Potassium Chloride Carbon Dioxide BUN Creatinine Glucose POC Glucose 293 H 182 H Lactic Acid Calcium Magnesium Ferritin Total Bilirubin Direct Bilirubin AST ALT Alkaline Phosphatase Lactate Dehydrogenase C-Reactive Protein Total Protein Albumin Triglycerides Arterial Blood Glucose Arterial Blood Ionized Calcium Urine WBC (Auto) Coronavirus (PCR) SARS-CoV-2 IgG Ab 06/20/20 11:47 WBC RBC Hgb Hct MCV MCH MCHC RDW Lymph % (Auto) Lymph # (Auto) Seg Neutrophils % Seg Neuts % (Manual) Lymphocytes % (Manual) Nucleated RBC % Seg Neutrophils # Seg Neutrophils # Man Lymphocytes # (Manual) Monocytes # (Manual) D-Dimer ABG pH POC ABG pCO2 POC ABG pO2 ABG pO2 ABG HCO3 ABG O2 Saturation ABG Base Excess ABG Hemoglobin ABG Oxyhemoglobin ABG Sodium ABG Potassium ABG Chloride ABG Glucose Oxyhemoglobin Sodium Potassium Chloride Carbon Dioxide BUN Creatinine Glucose POC Glucose 170 H Lactic Acid Calcium Magnesium Ferritin Total Bilirubin Direct Bilirubin AST ALT Alkaline Phosphatase Lactate Dehydrogenase C-Reactive Protein Total Protein Albumin Triglycerides Arterial Blood Glucose Arterial Blood Ionized Calcium Urine WBC (Auto) Coronavirus (PCR) SARS-CoV-2 IgG Ab Chest x-ray: pending Allied health notes reviewed: nursing
[2020-06-20] MEDS: LACTULOSE 20 GM/30 ML ORAL LIQD PO SCH (15:16)
[2020-06-20] MEDS ORDERED: MAGNESIUM CITRATE 300 ML ORAL LIQD PO ONE (15:29)
[2020-06-20] MEDS: fentaNYL 100 MCG/2 ML INJ IV PRN ×2 (16:40→18:21)
--- NOTE | 2020-06-20 17:36 | XRay Report ---
ABDOMEN 1 VIEW 06/20/2020 2:12 PM INDICATION / CLINICAL INFORMATION: constipation; distension. COMPARISON: 06/09/20 FINDINGS: TUBES / LINES: Esophagogastric tube remains present in the stomach. BOWEL GAS PATTERN: No significantly dilated loops of large or small bowel. Gas is present throughout the colon to the level of the rectum. FREE AIR / EXTRALUMINAL GAS: None. ADDITIONAL FINDINGS: No significant additional findings. IMPRESSION: 1. No bowel obstruction or free air. Signer Name: Kevin Martinez MD Signed: 06/20/2020 5:32 PM Workstation Name: [id number]
--- NOTE | 2020-06-20 17:43 | XRay Report ---
CHEST 1 VIEW 06/20/2020 2:12 PM INDICATION / CLINICAL INFORMATION: pneumonia. COMPARISON: 06/14/20 FINDINGS: SUPPORT DEVICES: Unchanged. HEART / MEDIASTINUM: Stable. LUNGS / PLEURA: Bilateral pulmonary opacities are essentially unchanged. Interval development of smal l right apical pneumothorax measuring 1.3 cm. ADDITIONAL FINDINGS: No significant additional findings. IMPRESSION: 1. Interval development of small right apical pneumothorax. IMPORTANT FINDING: Time of Communication (WINDOW SHADE RING COVERER/CDT): 4:35 PM Licensed Practitioner Receiving Report: Nurse Ruiz in the CCU Signer Name: Kevin Martinez MD Signed: 06/20/2020 5:38 PM Workstation Name: [id number]
--- NOTE | 2020-06-20 18:47 | XRay Report ---
CHEST 1 VIEW 06/20/2020 6:14 PM INDICATION / CLINICAL INFORMATION: confirmation of previous results or pneumothorax. COMPARISON: 3:03 PM FINDINGS: SUPPORT DEVICES: Unchanged. HEART / MEDIASTINUM: Stable. LUNGS / PLEURA: Bilateral pulmonary opacities are unchanged. Small right apical pneumothorax is uncha nged. ADDITIONAL FINDINGS: No significant additional findings. IMPRESSION: 1. No change in small right apical pneumothorax. Signer Name: Kevin Martinez MD Signed: 06/20/2020 6:42 PM Workstation Name: [id number]
[2020-06-20] MEDS: NORepinephrine/NS 4 MG-250 ML 4 MG/250 ML BAG IV SCH (21:40)
[2020-06-20] MEDS: POLYETHYLENE GLYCOL 3350 17 GM POWDER PO SCH (21:41)
[2020-06-20] MEDS: INSULIN GLARGINE 100 UNITS/ML SUB-Q SCH (21:41)
--- NOTE | 2020-06-20 23:32 | Event Note ---
Date: 06/20/20 called about pt with small pneumothorax seen on cxr 5 hours ago. No change in hemo-dynamics or respiratory status over the past several days. Spoke with social sciences chair who agrees that condition is stable at this time, and unclear when pneumo began since he has not had a cxr in 6 days. Will see pt in am and evaluate and place chest tube. Spoke to nurse who will call back if there is a sudden deterioration over night.
[2020-06-21] MEDS: INSULIN LISPRO 100 UNIT/ML VIAL 3 mL SUB-Q SCH ×4 (00:14→18:56)
[2020-06-21] MEDS: LACTULOSE 20 GM/30 ML ORAL LIQD PO SCH ×4 (00:16→17:05)
[2020-06-21] MEDS: fentaNYL DRIP Premix 2,000 MCG/100 ML BAG IV SCH ×5 (02:48→20:17)
[2020-06-21 04:11] LABS: ABG Base Excess 23.3 mmol/L (-2.0-3.0); ABG HCO3 52.1 mmol/L (20.0-26.0); ABG PCO2 72.6 mm Hg; ABG PH 7.474 pH Units (7.350-7.450); ABG PO2 89.3 mm Hg (80.0-90.0)
[2020-06-21 05:08] LABS: ABG Methemoglobin 0.5 % (0.0-1.5)
--- NOTE | 2020-06-21 05:15 | XRay Report ---
CHEST 1 VIEW, 06/21/2020 2:45 AM CLINICAL INFORMATION/INDICATION: Pneumonia COMPARISON: Chest radiograph, 06/20/2020 FINDINGS: SUPPORT DEVICES: Support tubes and lines project in stable position. HEART: The cardiac silhouette is normal in size. LUNGS/PLEURA: Bilateral pulmonary opacities are not significantly changed. Trace right apical pneumot horax is again noted and has decreased since the previous study. ADDITIONAL FINDINGS: No additional acute findings. IMPRESSION: 1. Stable bilateral pulmonary opacities. 2. Trace right apical pneumothorax which has decreased in size since the previous study. Signer Name: Teresa Vee MD Signed: 06/21/2020 5:10 AM Workstation Name: [id number]
[2020-06-21] MEDS: PHENobarbital 20 MG/5 ML ORAL LIQD FEEDTUBE SCH ×3 (05:58→21:29)
[2020-06-21] MEDS: methylPREDNISolone Sod Succinate 40 MG/1 ML INJ IV SCH ×2 (05:58→17:05)
[2020-06-21] MEDS: fentaNYL 100 MCG/2 ML INJ IV PRN ×3 (07:59→15:12)
[2020-06-21] MEDS: MIDAZOLAM 100 MG in SODIUM CHLORIDE 0.9% 80 ML IV SCH (08:20)
[2020-06-21] MEDS: ENOXAPARIN 120 MG/0.8 ML INJ SUB-Q SCH (09:00)
[2020-06-21] MEDS: QUEtiapine 100 MG TAB PO SCH ×2 (09:29→21:29)
[2020-06-21] MEDS: FOLIC ACID 1 MG TAB PO SCH (09:30)
--- NOTE | 2020-06-21 09:47 | Progress Note ---
Assessment and Plan Assessment and plan: - Acute hypoxemic respiratory failure; Patient intubated and on vent support --Severe COVID-19 bilateral pneumonia Coronavirus protocol: IV steroid therapy, completed remdesivir, isolation precautions, contact precautions, prone positioning while in bed, pulmonary toilet. ID following SARS CoV-2 IgG positive patient is NOT a candidate for COVID convalescent plasma --Severe sepsis/septic shock, due to COVID 19 PNA cont pressors as needed -- Acute kidney injury (SEN) , likely vasomotor nephropathy Resolved, IV fluids, avoid nephrotoxins -- Alcohol dependence; no episodes of withdrawal symptoms Thiamine, folic acid, multivitamin, CIWA protocol. -- Elevated liver function tests Suspected secondary to alcoholic liver disease. Supportive care, alcohol cessat ion, patient counseled. --History of EtOH dependence -- DVT prophylaxis On therapeutic Lovenox 06/16/2020. Patient currently on mechanical ventilation with AC mode rate 30, tidal volume 500, FiO2 70% and PEEP of 16. Continue anticoagulation with Lovenox 110 milligrams subcu every 12 hours. Wean sedation of fentanyl/Versed as needed. Currently with IV steroids of Solu-Medrol 40 mg IV every 12 hours. Patient will likely need tracheostomy per pulmonary recommendations. Continue pressors to maintain MAP > 65. 06/17/2020. Patient currently on mechanical ventilation with AC mode rate 30, tidal volume 500, FiO2 65% and PEEP of 16. Continue anticoagulation with Lovenox 110 milligrams subcu every 12 hours. Wean sedation of fentanyl/Versed as needed. Currently with IV steroids of Solu-Medrol 40 mg IV every 12 hours. Patient will likely need tracheostomy per pulmonary recommendations. 06/18/2020. Patient currently on mechanical ventilation with AC mode rate 30, tidal volume 500, FiO2 70% and PEEP of 16. Continue Lovenox for anticoagulation and fentanyl/Versed for sedation. Wean steroids per pulmonary. CIWA protocol initiated for history of EtOH dependence 06/19/2020. Patient currently on mechanical ventilation with AC mode rate 30, tidal volume 500, FiO2 60% and PEEP of 16. Wean FiO2 as tolerated per protocol. Continue Lovenox for anticoagulation and fentanyl/Versed for sedation. Wean steroids per pulmonary. CIWA protocol initiated for history of EtOH dependence 06/20/2020. Patient currently on mechanical ventilation with AC mode rate 30, tidal volume 500, FiO2 60% and PEEP of 16. Wean FiO2 as tolerated, SBT per protocol. Continue Lovenox for anticoagulation and fentanyl/Versed for sedation. Wean steroids per pulmonary. Continue pressors to maintain MAP > 65 mmHg. Patient remains on ETT. Consider tracheostomy placement once oxygenation is better per pulmonary. CIWA protocol initiated for history of EtOH dependence. 06/21/2020. Patient with a small apical pneumothorax discovered yesterday. General surgery consulted and consider placing chest tube. Follow-up serial chest x-ray patient currently on mechanical ventilation with AC mode rate 30, tidal volume 500, FiO2 60% and PEEP of 16. Wean FiO2 as tolerated, SBT per protocol. Continue Lovenox for anticoagulation and fentanyl/Versed for sedation. Wean steroids per pulmonary. Continue pressors to maintain MAP > 65 mmHg. Patient remains on ETT. Consider tracheostomy placement once oxygenation is better per pulmonary. CIWA protocol initiated for history of EtOH dependence. The high probability of a clinically significant, sudden or life threatening deterioration of the [respiratory] system(s) required my full and direct at tention, intervention and personal management. The aggregate critical care time was [31] minutes. This time is in addition to time spent performing reported procedures but includes the following: [x] Data Review and interpretation [x] Patient assessment and monitoring of vital signs [x] Documentation [x] Medication orders and management History Interval history: no new issues Hospitalist Physical - Constitutional Vitals: Temp Pulse Resp BP Pulse Ox 99.1 F 130 H 30 H 89/59 93 06/21/20 08:00 06/21/20 09:15 06/21/20 09:15 06/21/20 09:15 06/21/20 09:15 General appearance: Present: no acute distress, other - EENT Eyes: Present: PERRL, EOM intact ENT: hearing intact, clear oral mucosa, dentition normal - Neck Neck: Present: supple, normal ROM - Respiratory Respiratory effort: normal Respiratory: bilateral: CTA - Cardiovascular Rhythm: regular Heart Sounds: Present: S1 & S2. Absent: gallop, rub - Extremities Extremities: no ischemia, No edema, Full ROM - Abdominal General gastrointestinal: soft, non-tender, non-distended, normal bowel sounds - Integumentary Integumentary: Present: clear, warm, dry - Neurologic Neurologic: CNII-XII intact, moves all extremities Results - Labs CBC & Chem 7: 12/09/20 04:00 06/16/20 04:00 Labs: Laboratory Last Values WBC 13.8 K/mm3 (4.5-11.0) H 06/16/20 04:00 RBC 2.03 M/mm3 (3.65-5.03) L 06/16/20 04:00 Hgb 7.6 gm/dl (11.8-15.2) L 06/16/20 04:00 Hct 20.7 % (35.5-45.6) L 06/16/20 04:00 MCV 102 fl (84-94) H 06/16/20 04:00 MCH 37 pg (28-32) H 06/16/20 04:00 MCHC 37 % (32-34) H 06/16/20 04:00 RDW 16.2 % (13.2-15.2) H 06/16/20 04:00 Plt Count 208 K/mm3 (140-440) 06/16/20 04:00 Lymph % (Auto) 4.4 % (13.4-35.0) L 06/16/20 04:00 [place] % (Auto) 3.6 % (0.0-7.3) 06/16/20 04:00 Eos % (Auto) 0.0 % (0.0-4.3) 06/16/20 04:00 Baso % (Auto) 0.3 % (0.0-1.8) 06/16/20 04:00 Lymph # (Auto) 0.6 K/mm3 (1.2-5.4) L 06/16/20 04:00 [place] # (Auto) 0.5 K/mm3 (0.0-0.8) 06/16/20 04:00 Eos # (Auto) 0.0 K/mm3 (0.0-0.4) 06/16/20 04:00 Baso # (Auto) 0.0 K/mm3 (0.0-0.1) 06/16/20 04:00 Add Manual Diff Complete 06/15/20 Unknown Total Counted 100 06/15/20 Unknown Seg Neutrophils % Evp Operations 06/16/20 04:00 Seg Neuts % (Manual) 83.0 % (40.0-70.0) H 06/15/20 Unknown Band Neutrophils % 0 % 06/15/20 Unknown Lymphocytes % (Manual) 8.0 % (13.4-35.0) L 06/15/20 Unknown Reactive Lymphs % (Man) 0 % 06/15/20 Unknown Monocytes % (Manual) 6.0 % (0.0-7.3) 06/15/20 Unknown Eosinophils % (Manual) 0 % (0.0-4.3) 06/15/20 Unknown Basophils % (Manual) 0 % (0.0-1.8) 06/15/20 Unknown Metamyelocytes % 3.0 % 06/15/20 Unknown Myelocytes % 0 % 06/15/20 Unknown Promyelocytes % 0 % 06/15/20 Unknown Blast Cells % 0 % 06/15/20 Unknown Nucleated RBC % Not Reportable 06/15/20 Unknown Seg Neutrophils # 12.7 K/mm3 (1.8-7.7) H 06/16/20 04:00 Seg Neutrophils # Man 17.2 K/mm3 (1.8-7.7) H 06/15/20 Unknown Band Neutrophils # 0.0 K/mm3 06/15/20 Unknown Lymphocytes # (Manual) 1.7 K/mm3 (1.2-5.4) 06/15/20 Unknown Abs React Lymphs (Man) 0.0 K/mm3 06/15/20 Unknown Monocytes # (Manual) 1.2 K/mm3 (0.0-0.8) H 06/15/20 Unknown Eosinophils # (Manual) 0.0 K/mm3 (0.0-0.4) 06/15/20 Unknown Basophils # (Manual) 0.0 K/mm3 (0.0-0.1) 06/15/20 Unknown Metamyelocytes # 0.6 K/mm3 06/15/20 Unknown Myelocytes # 0.0 K/mm3 06/15/20 Unknown Promyelocytes # 0.0 K/mm3 06/15/20 Unknown Blast Cells # 0.0 K/mm3 06/15/20 Unknown WBC Morphology Not Reportable 06/15/20 Unknown Hypersegmented Neuts Not Reportable 06/15/20 Unknown Hyposegmented Neuts Not Reportable 06/15/20 Unknown Hypogranular Neuts Not Reportable 06/15/20 Unknown Smudge Cells Not Reportable 06/15/20 Unknown Toxic Granulation Not Reportable 06/15/20 Unknown Toxic Vacuolation Not Reportable 06/15/20 Unknown Dohle Bodies Not Reportable 06/15/20 Unknown Pelger-Huet Anomaly Not Reportable 06/15/20 Unknown Jason Rods Not Reportable 06/15/20 Unknown Platelet Estimate Consistent w auto 06/15/20 Unknown Clumped Platelets Not Reportable 06/15/20 Unknown Plt Clumps, EDTA Not Reportable 06/15/20 Unknown Large Platelets Not Reportable 06/15/20 Unknown Giant Platelets Not Reportable 06/15/20 Unknown Platelet Satelliting Not Reportable 06/15/20 Unknown Plt Morphology Comment Not Reportable 06/15/20 Unknown RBC Morphology Not Reportable 06/15/20 Unknown Dimorphic RBCs Not Reportable 06/15/20 Unknown Polychromasia Few 06/15/20 Unknown Hypochromasia 1+ 06/15/20 Unknown Poikilocytosis Not Reportable 06/15/20 Unknown Anisocytosis 1+ 06/15/20 Unknown Microcytosis Not Reportable 06/15/20 Unknown Macrocytosis 1+ 06/15/20 Unknown Spherocytes Not Reportable 06/15/20 Unknown Pappenheimer Bodies Not Reportable 06/15/20 Unknown Sickle Cells Not Reportable 06/15/20 Unknown Target Cells Not Reportable 06/15/20 Unknown Tear Drop Cells Not Reportable 06/15/20 Unknown Ovalocytes Not Reportable 06/15/20 Unknown Stomatocytes Few 06/14/20 07:15 Helmet Cells Not Reportable 06/15/20 Unknown [place] Bodies Not Reportable 06/15/20 Unknown [place] Rings Not Reportable 06/15/20 Unknown [place] Cells Not Reportable 06/15/20 Unknown Bite Cells Not Reportable 06/15/20 Unknown Crenated Cell Not Reportable 06/15/20 Unknown Elliptocytes Not Reportable 06/15/20 Unknown Acanthocytes (Spur) Not Reportable 06/15/20 Unknown Rouleaux Not Reportable 06/15/20 Unknown Hemoglobin C Crystals Not Reportable 06/15/20 Unknown Schistocytes Few 06/15/20 Unknown Malaria parasites Not Reportable 06/15/20 Unknown Josue Bodies Not Reportable 06/15/20 Unknown Hem Pathologist Commnt No 06/15/20 Unknown PT 14.4 Sec. (12.2-14.9) 06/13/20 14:14 INR 1.13 (0.87-1.13) 06/13/20 14:14 D-Dimer 1887.82 ng/mlDDU (0-234) H 05/20/20 08:16 ABG pH 7.474 pH Units (7.350-7.450) H 06/21/20 04:00 POC ABG pCO2 83.1 mmHg (32.0-48.0) H 06/19/20 04:32 ABG pCO2 72.6 mm Hg 06/21/20 04:00 POC ABG pO2 65.8 mmHg (83-108) L 06/19/20 04:32 ABG pO2 89.3 mm Hg (80.0-90.0) 06/21/20 04:00 POC ABG HCO3 49.2 06/19/20 04:32 ABG HCO3 52.1 mmol/L (20.0-26.0) H 06/21/20 04:00 ABG O2 Saturation 97.0 % (95.0-99.0) 06/21/20 04:00 ABG O2 Content 20.7 (0.0-44) 06/21/20 04:00 POC ABG Base Excess 21.2 06/19/20 04:32 ABG Base Excess 23.3 mmol/L (-2.0-3.0) H 06/21/20 04:00 ABG Hemoglobin 5.3 gm/dl (14.0-18.0) L 06/21/20 04:00 ABG Oxyhemoglobin 86.3 (94-98) L 05/09/20 15:56 ABG Carboxyhemoglobin 2.8 % (0.0-5.0) 06/21/20 04:00 ABG Methemoglobin 0.5 % (0.0-1.5) 06/21/20 04:00 ABG Sodium 144.4 mmol/L (136.0-145.0) 06/19/20 04:32 ABG Potassium 3.6 mmol/L (3.40-4.50) 06/19/20 04:32 ABG Chloride 96.0 mmol/L (98-107) L 06/19/20 04:32 ABG Glucose 297 mg/dL (65-95) H 06/19/20 04:32 Oxyhemoglobin 93.8 % (95.0-99.0) L 06/21/20 04:00 Carboxyhemoglobin 1.3 (0.5-1.5) 05/09/20 15:56 FiO2 60 % 06/21/20 04:00 Sodium 130 mmol/L (137-145) L 06/16/20 04:00 Potassium 3.8 mmol/L (3.6-5.0) 06/16/20 04:00 Chloride 88.9 mmol/L (98-107) L 06/16/20 04:00 Carbon Dioxide 36 mmol/L (22-30) H 06/16/20 04:00 Anion Gap 9 mmol/L 06/16/20 04:00 BUN 20 mg/dL (9-20) 06/16/20 04:00 Creatinine 0.3 mg/dL (0.8-1.3) L 06/16/20 04:00 Estimated GFR > 60 ml/min 06/16/20 04:00 BUN/Creatinine Ratio 67 % 06/16/20 04:00 Glucose 276 mg/dL (75-100) H 06/16/20 04:00 POC Glucose 129 mg/dL (70-105) H 06/21/20 05:51 Lactic Acid 1.80 mmol/L (0.7-2.0) 05/09/20 Unknown Calcium 8.4 mg/dL (8.4-10.2) 06/16/20 04:00 Phosphorus 3.10 mg/dL (2.5-4.5) 06/15/20 04:00 Magnesium 1.90 mg/dL (1.7-2.3) 06/15/20 04:00 Ferritin 1496.0 ng/mL (30.0-300.0) H 06/14/20 11:50 Total Bilirubin 2.00 mg/dL (0.1-1.2) H 06/15/20 04:00 Direct Bilirubin 0.6 mg/dL (0-0.2) H 05/11/20 07:30 Indirect Bilirubin 0.9 mg/dL 05/11/20 07:30 AST 47 units/L (5-40) H 06/15/20 04:00 ALT 77 units/L (7-56) H 06/15/20 04:00 Alkaline Phosphatase 96 units/L (35-129) 06/15/20 04:00 Lactate Dehydrogenase 705 units/L (91-180) H 05/20/20 08:16 C-Reactive Protein 3.10 mg/dL (0.00-1.30) H 05/20/20 08:16 Total Protein 6.3 g/dL (6.3-8.2) 06/15/20 04:00 Albumin 2.6 g/dL (3.9-5) L 06/15/20 04:00 Albumin/Globulin Ratio 0.7 % 06/15/20 04:00 Triglycerides 152 mg/dL (2-149) H 06/15/20 05:00 Procalcitonin 0.94 ng/mL (<0.15) 06/14/20 11:50 Arterial Blood Glucose 297 mg/dL (65-95) H 06/19/20 04:32 Arterial Blood Ionized Calcium 4.9 mg/dL (4.6-5.3) 06/19/20 04:32 Urine Color Fauzia (Yellow) 05/10/20 Unknown Urine Turbidity Clear (Clear) 05/10/20 Unknown Urine pH 5.0 (5.0-7.0) 05/10/20 Unknown Ur Specific [place] 1.019 (1.003-1.030) 05/10/20 Unknown Urine Protein 100 mg/dl mg/dL (Negative) 05/10/20 Unknown Urine Glucose (UA) Neg mg/dL (Negative) 05/10/20 Unknown Urine Ketones Neg mg/dL (Negative) 05/10/20 Unknown Urine Blood Lg (Negative) 05/10/20 Unknown Urine Nitrite Neg (Negative) 05/10/20 Unknown Urine Bilirubin Neg (Negative) 05/10/20 Unknown Urine Urobilinogen 2.0 mg/dL (<2.0) 05/10/20 Unknown Ur Leukocyte Esterase Neg (Negative) 05/10/20 Unknown Urine WBC (Auto) 11.0 /HPF (0.0-6.0) H 05/10/20 Unknown Urine RBC (Auto) 2.0 /HPF (0.0-6.0) 05/10/20 Unknown U Epithel Cells (Auto) 1.0 /HPF (0-13.0) 05/10/20 Unknown Urine Bacteria (Auto) 1+ /HPF (Negative) 05/10/20 Unknown Urine Mucus Few /HPF 05/10/20 Unknown Plasma/Serum Alcohol < 0.01 % (0-0.07) 05/09/20 14:20 Coronavirus (PCR) Positive (Negative) A 05/10/20 Unknown SARS-CoV-2 IgG Ab Reactive (NonReactive) A 05/11/20 07:30 - Diagnostic Impressions Diagnostic Impressions: Echocardiogram 05/20/20 13:02 Transthoracic Echocardiogram Indication: CHF BP: 97/73 Conclusions *The study quality is technically very difficult and limited. *The left ventricular chamber size, wall thickness and systolic function are within normal limits. There are no wall motion abnormalities observed. Ejection fraction is normal. *The estimated ejection fraction is 60-65%. *The pericardium appears normal. Findings Procedure Info: The study quality is technically difficult. Left Ventricle: The left ventricular chamber size, wall thickness and systolic function are within normal limits. There are no wall motion abnormalities observed. Ejection fraction is normal. The estimated ejection fraction is 60-65%. Abnormal left ventricular diastolic filling is observed, consistent with impaired relaxation. Left Atrium: The left atrium is normal in size with no visual thrombus identified. Right Ventricle: The right ventricle is not well visualized. Right Atrium: The right atrium is not well visualized. Aortic Valve: The aortic valve is trileaflet. The leaflets are thin with normal excursion. There is no aortic stenosis or regurgitation present. Mitral Valve: The mitral valve appears normal in structure and function. Tricuspid Valve: The tricuspid valve appears normal in structure and function. Unable to estimate the right ventricular systolic pressure. Pulmonic Valve: The pulmonic valve is not well visualized. There is no evidence of pulmonic regurgitation. There is no pulmonic stenosis. Pericardium: The pericardium appears normal. Pulmonary Artery: The main pulmonary artery is not well visualized. Venous: The inferior vena cava appears normal in size. Measurements Chambers 2D Name Value Normal Range IVSd (2D) 0.83 cm (0.6 - 1.1) LVPWd (2D) 0.83 cm (0.6 - 1.1) LVIDd (2D) 3.88 cm (3.7 - 5.6) LVIDs (2D) 2.46 cm (2 - 3.8) LV FS (2D) 36.52 % - EF Teichholz (2D) 66.97 % - Ao root diameter (2D) 3.47 cm (2 - 3.7) Volumes/Mass Name Value Normal Range LA ESV SP 4CH (A/L) 22.4 ml - LA ESV SP 2CH (A/L) 22.89 ml - LA ESV BP (A/L) 23.06 ml - LA ESV SP 4CH (MOD) 21.09 ml - LA ESV SP 2CH (MOD) 22.44 ml - Diastolic/Systolic Function Name Value Normal Range MV E-wave Vmax 0.48 m/sec - MV deceleration time 156.3 msec - MV A-wave Vmax 0.59 m/sec - MV E:A ratio 0.81 ratio - Aortic Valve Name Value Normal Range AV Vmax 0.97 m/sec - AV VTI 14.49 cm - AV peak gradient 3.73 mmHg - AV mean gradient 1.89 mmHg - LVOT diameter 2.09 cm - LVOT Vmax 0.72 m/sec - LVOT VTI 10.21 cm - LVOT peak gradient 2.05 mmHg - LVOT mean gradient 1.03 mmHg - SV LVOT 35.17 ml - INNA (continuity Vmax) 2.55 cm2 - INNA (continuity VTI) 2.43 cm2 - Tricuspid Valve Name Value Normal Range TV E-wave Vmax 0.37 m/sec - Pulmonic Valve/Qp:Qs Name Value Normal Range PV Vmax 0.72 m/sec - PV peak gradient 2.06 mmHg - RVOT Vmax 0.85 m/sec - RVOT VTI 9.89 cm - RVOT peak gradient 2.9 mmHg - PV acceleration time 72.31 msec - Cantor/IV: Voiding Method Condom Catheter IV Catheter Type [Right Upper PICC Line arm] IV Catheter Type [Right CVL Internal Jugular] IV Catheter Type [Right Peripheral IV Forearm] IV Catheter Type [Left Forearm Peripheral IV ] IV Catheter Type [Left Wrist] INT / Saline Lock IV Catheter Type [Right Hand] INT / Saline Lock IV Catheter Type [Left Hand] INT / Saline Lock IV Catheter Type [Left Peripheral IV Antecubital] Active Medications - Current Medications Current Medications: Generic Name Dose Route Start Last Admin Trade Name Freq PRN Reason Stop Dose Admin Acetaminophen 650 mg 06/14/20 10:07 06/20/20 09:55 Tylenol FEEDTUBE 650 mg Q4H PRN Administration Pain, Mild (1-3) Alprazolam 0.25 mg 05/20/20 17:53 06/08/20 08:29 Alprazolam 0.25 Mg Tab PO 0.25 mg Q8H PRN Administration Anxiety Lipase/Protease/Amylase 1 each 05/22/20 13:01 Lipase 10,500/Protease 25,000/Amylase 43,750 (Units) Dr Cap FEEDTUBE PRN PRN For Clogged Feeding Tube Bisacodyl 10 mg 06/07/20 10:00 06/20/20 09:55 Dulcolax MD 10 mg QDAY [facility] Administration Docusate Sodium 100 mg 05/28/20 14:00 06/20/20 21:48 Colace PO Not Given BID [facility] Enoxaparin Sodium 110 mg 05/10/20 22:00 06/20/20 21:41 Enoxaparin 1 mg/kg (110 mg) 110 mg SUB-Q Administration Q12HR [facility] Protocol Famotidine 20 mg 05/25/20 22:00 06/20/20 22:00 Pepcid PO 20 mg BID [facility] Administration Fentanyl 50 mcg 06/09/20 13:53 06/21/20 07:59 Sublimaze IV 50 mcg Q10MIN PRN Administration ANALGESIA Folic Acid 1 mg 05/09/20 15:36 06/20/20 09:54 Folvite PO 1 mg QDAY [facility] Administration Hydrophilic Ointment 1 applic 05/21/20 20:33 Lip Therapy Vaseline TP Q2HR PRN Dry Lips Midazolam HCl 100 mg/ Sodium 100 mls @ 2 mls/hr 06/02/20 14:00 06/21/20 08:20 Chloride IV 5 mg/hr TITR DESIRE 5 mls/hr Administration Protocol 2 MG/HR Norepinephrine 4 mg in 250 mls @ 7.5 mls/hr 06/04/20 16:00 06/20/20 21:40 Levophed Drip 4 Mg/Ns 250 Ml IV 2 mcg/min TITR DESIRE 7.5 mls/hr Administration Protocol 2 MCG/MIN Propofol 500 mg in 50 mls @ 3.309 mls/hr 06/08/20 11:00 06/17/20 18:25 Propofol IV 35 mcg/kg/min TITR DESIRE 23.163 mls/hr Administration Protocol 5 MCG/KG/MIN Fentanyl Citrate 2,000 mcg in 100 mls @ 5.32 mls/hr 06/09/20 14:00 06/21/20 08:16 Fentanyl Drip Premix IV 4 mcg/kg/hr TITR DESIRE 21.28 mls/hr Administration Protocol 1 MCG/KG/HR Vasopressin 20 unit/ Sodium 101 mls @ 9.09 mls/hr 06/09/20 18:00 Chloride IV TITR DESIRE Protocol 0.03 UNITS/MIN Insulin Glargine 20 units 06/18/20 22:00 06/20/20 21:41 Insulin Glargine 100 Units/Ml SUB-Q 20 units QHS [facility] Administration Insulin Human Lispro 0 unit 05/29/20 14:00 06/21/20 05:58 Humalog SUB-Q Not Given Q6H [facility] Protocol Lactulose 20 gm 06/20/20 16:00 06/21/20 05:58 Lactulose 20 Gm/30 Ml Oral Liqd PO 06/22/20 15:59 20 gm Q6HR DESIRE Administration Methylprednisolone Sodium Succinate 40 mg 05/20/20 18:00 06/21/20 05:58 Methylprednisolone Sod Succinate 40 Mg/1 Ml Inj IV 40 mg Q12H DESIRE Administration Multi-Ingred Cream/Lotion/Oil/Oint 1 applic 05/21/20 20:33 Mineral Oil/Petrolatum, White Ophth Oint 3.5 Gm OU Q4HR PRN Dry Eye(s) Phenobarbital 20 mg 06/18/20 14:00 06/21/20 05:58 Phenobarbital 20 Mg/5 Ml Oral Liqd FEEDTUBE 20 mg Q8HR DESIRE Administration Polyethylene Glycol 17 gm 05/28/20 22:00 06/20/20 21:41 Miralax 3350 PO 17 gm QHS DESIRE Administration Quetiapine Fumarate 300 mg 06/10/20 22:00 06/20/20 21:41 Seroquel PO 300 mg BID DESIRE Administration Senna 17.2 mg 06/07/20 10:00 06/20/20 21:49 Senokot PO Not Given BID DESIRE Simple Syrup 15 ml 05/22/20 13:01 Simple Syrup 15 Ml FEEDTUBE PRN PRN Hypoglycemia Simple Syrup 30 ml 05/22/20 13:01 Simple Syrup 15 Ml FEEDTUBE PRN PRN Hypoglycemia Sodium Bicarbonate 325 mg 05/22/20 13:01 Sodium Bicarbonate 325 Mg Tab FEEDTUBE PRN PRN For Clogged Feeding Tube Sodium Chloride 10 ml 05/09/20 22:00 06/20/20 21:41 Sodium Chloride Flush Syringe 10 Ml IV 10 ml BID DESIRE Administration Nutrition/Malnutrition Assess - Dietary Evaluation Nutrition/Malnutrition Findings: Nutrition Notes Start: 05/17/20 14:10 Freq: Status: Active Protocol: Document 06/17/20 12:23 AB (Rec: 06/17/20 12:29 AB [id number]) Co-Sign 06/17/20 12:23 LM Nutrition Notes Initial or Follow up Reassessment Current Diagnosis Sepsis,Respiratory Failure Other Pertinent Diagnosis Bilat pneu, COVID-19 (+), EtOH dependence Current Diet Vital HP at 65 ml/hr (goal rate) Labs/Tests POC BG 221 Pertinent Medications Propofol at 19.854 ml/hr Height 6 ft Weight 107.1 kg [place] Body Weight (kg) 80.90 BMI 32.0 Weight Status Obese Subjective/Other Information F/U for TF tolerate/rate and oral secretions. 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 Per RN, pt still having cream colored oral secretions. Percent of energy/protein needs met: 86%/84% Burn Absent Trauma Absent GI Symptoms None Current % PO Negligible Minimum of two criteria No physical signs of malnutrition #1 Nutrition Diagnosis Inadequate oral intake Diagnosis Progress(for reassessment Continues documentation) Is patient on ventilator? Yes Is Patient Ambulatory and/or Out of Bed No REE-([facility]-confined to bed) 2360.412 Kcal/Kg value to use for calculation 17 Approximate Energy Requirements Using 1821 kcal/Kg Calculation Used for Recommendations Kcal/kg Additional Notes Pro needs >2g/kg IBW: at least 162g/day Fluid needs 1ml/kcal Nutrition Intervention Change Diet Order: Continue TF with rate change Nutrition Support: Vital HP at 65ml/hr with 50ml water flush q4h. For hyponatremia, flush 50 ml q6h Kcal 1,560 Protein (gm) 136 Fluid (mL) 1,304 Goal #1 TF tolerance Goal #2 TF (at goal rate) to meet at least 75% energy and pro needs Anticipated Discharge Needs: Unable to identify at this time Follow-Up By: 06/24/20 Additional Comments F/U for TF tolerance and BM
[2020-06-21] MEDS: FAMOTIDINE 20 MG TAB PO SCH ×2 (10:28→21:29)
[2020-06-21] MEDS: SENNOSIDES 8.6 MG TAB PO SCH ×2 (10:28→21:29)
[2020-06-21] MEDS: DOCUSATE SODIUM 100 MG/10 ML ORAL LIQD PO SCH ×2 (10:31→21:29)
--- NOTE | 2020-06-21 10:37 | Consultation ---
History of Present Illness Consult date: 06/21/20 Reason for consult: chest tube - History of present illness History of present illness: 50 year old male who has been in the hospital for over a month, is COVID+ and is on a ventilator is being consulted for small right pneumothorax. His last cxr that did not show a ptx was done on 06/14/2020, with two cxr yesterday that showed a small right apical ptx, and a cxray today showed improvement but residual pneumothorax. He has no changes in hemodynamics or respiratory support during this time. His PEEP was reduced from 16 to 14 yesterday. Past History Past Medical History: other (See HPI) Past Surgical History: No surgical history, Other (Reviewed) Social history: single, alcohol abuse Family history: diabetes, hypertension Medications and Allergies Allergies Allergy/AdvReac Type Severity Reaction Status Date / Time No Known Allergies Allergy Unverified 05/09/20 14:23 Home Medications Medication Instructions Recorded Confirmed Last Taken Type No Known Home Medications [No 05/09/20 05/09/20 Unknown History Reported Home Medications] Active Meds: Active Medications Acetaminophen (Tylenol) 650 mg FEEDTUBE Q4H PRN PRN Reason: Pain, Mild (1-3) Last Admin: 06/20/20 09:55 Dose: 650 mg Documented by: Alprazolam (Alprazolam 0.25 Mg Tab) 0.25 mg PO Q8H PRN PRN Reason: Anxiety Last Admin: 06/08/20 08:29 Dose: 0.25 mg Documented by: Lipase/Protease/Amylase (Lipase 10,500/Protease 25,000/Amylase 43,750 (Units) Dr Newell) 1 each FEEDTUBE PRN PRN PRN Reason: For Clogged Feeding Tube Bisacodyl (Dulcolax) 10 mg [place] QDAY [facility] Last Admin: 06/20/20 09:55 Dose: 10 mg Documented by: Docusate Sodium (Colace) 100 mg PO BID [facility] Last Admin: 06/20/20 21:48 Dose: Not Given Documented by: Enoxaparin Sodium (Enoxaparin) 110 mg 1 mg/kg (110 mg) SUB-Q Q12HR [facility]; Protocol Last Admin: 06/20/20 21:41 Dose: 110 mg Documented by: Famotidine (Pepcid) 20 mg PO BID [facility] Last Admin: 06/20/20 22:00 Dose: 20 mg Documented by: Fentanyl (Sublimaze) 50 mcg IV Q10MIN PRN PRN Reason: ANALGESIA Last Admin: 06/21/20 07:59 Dose: 50 mcg Documented by: Folic Acid (Folvite) 1 mg PO QDAY [facility] Last Admin: 06/20/20 09:54 Dose: 1 mg Documented by: Hydrophilic Ointment (Lip Therapy Vaseline) 1 applic TP Q2HR PRN PRN Reason: Dry Lips Midazolam HCl 100 mg/ Sodium (Chloride) 100 mls @ 2 mls/hr IV TITR [facility]; Protocol Last Admin: 06/21/20 08:20 Dose: 5 mg/hr, 5 mls/hr Documented by: Norepinephrine (Levophed Drip 4 Mg/Ns 250 Ml) 4 mg in 250 mls @ 7.5 mls/hr IV TITR [facility]; Protocol Last Admin: 06/20/20 21:40 Dose: 2 mcg/min, 7.5 mls/hr Documented by: Propofol (Propofol) 500 mg in 50 mls @ 3.309 mls/hr IV TITR [facility]; Protocol Last Admin: 06/17/20 18:25 Dose: 35 mcg/kg/min, 23.163 mls/hr Documented by: Fentanyl Citrate (Fentanyl Drip Premix) 2,000 mcg in 100 mls @ 5.32 mls/hr IV TITR [facility]; Protocol Last Admin: 06/21/20 08:16 Dose: 4 mcg/kg/hr, 21.28 mls/hr Documented by: Vasopressin 20 unit/ Sodium (Chloride) 101 mls @ 9.09 mls/hr IV TITR [facility]; Protocol Insulin Glargine (Insulin Glargine 100 Units/Ml) 20 units SUB-Q QHS [facility] Last Admin: 06/20/20 21:41 Dose: 20 units Documented by: Insulin Human Lispro (Humalog) 0 unit SUB-Q Q6H [facility]; Protocol Last Admin: 06/21/20 05:58 Dose: Not Given Documented by: Lactulose (Lactulose 20 Gm/30 Ml Oral Liqd) 20 gm PO Q6HR [facility] Stop: 06/22/20 15:59 Last Admin: 06/21/20 05:58 Dose: 20 gm Documented by: Methylprednisolone Sodium Succinate (Methylprednisolone Sod Succinate 40 Mg/1 Ml Inj) 40 mg IV Q12H [facility] Last Admin: 06/21/20 05:58 Dose: 40 mg Documented by: Multi-Ingred Cream/Lotion/Oil/Oint (Mineral Oil/Petrolatum, White Ophth Oint 3.5 Gm) 1 applic OU Q4HR PRN PRN Reason: Dry Eye(s) Phenobarbital (Phenobarbital 20 Mg/5 Ml Oral Liqd) 20 mg FEEDTUBE Q8HR [facility] Last Admin: 06/21/20 05:58 Dose: 20 mg Documented by: Polyethylene Glycol (Miralax [id number]) 17 gm PO QHS [facility] Last Admin: 06/20/20 21:41 Dose: 17 gm Documented by: Quetiapine Fumarate (Seroquel) 300 mg PO BID [facility] Last Admin: 06/20/20 21:41 Dose: 300 mg Documented by: Senna (Senokot) 17.2 mg PO BID [facility] Last Admin: 06/20/20 21:49 Dose: Not Given Documented by: Simple Syrup (Simple Syrup 15 Ml) 15 ml FEEDTUBE PRN PRN PRN Reason: Hypoglycemia Simple Syrup (Simple Syrup 15 Ml) 30 ml FEEDTUBE PRN PRN PRN Reason: Hypoglycemia Sodium Bicarbonate (Sodium Bicarbonate 325 Mg Tab) 325 mg FEEDTUBE PRN PRN PRN Reason: For Clogged Feeding Tube Sodium Chloride (Sodium Chloride Flush Syringe 10 Ml) 10 ml IV BID [facility] Last Admin: 06/20/20 21:41 Dose: 10 ml Documented by: Review of Systems ROS unobtainable: due to endotracheal tube Exam Vital Signs Pulse Ox 80 L 05/09/20 12:34 - General physical appearance Positive: no distress - Respiratory Positive: normal expansion, normal respiratory effort, other (on vent, endotracheal tube) - Abdomen Abdomen: Present: soft. Absent: tender Results - Labs 06/16/20 04:00 06/16/20 04:00 Abnormal lab results 06/20/20 06/20/20 06/20/20 Range/Units 11:47 17:46 23:37 ABG pH (7.350-7.450) pH Units ABG HCO3 (20.0-26.0) mmol/L ABG Base Excess (-2.0-3.0) mmol/L ABG Hemoglobin (14.0-18.0) gm/dl Oxyhemoglobin (95.0-99.0) % POC Glucose 170 H 215 H 256 H (70-105) mg/dL 06/21/20 06/21/20 06/21/20 Range/Units 04:00 05:14 05:51 ABG pH 7.474 H (7.350-7.450) pH Units ABG HCO3 52.1 H (20.0-26.0) mmol/L ABG Base Excess 23.3 H (-2.0-3.0) mmol/L ABG Hemoglobin 5.3 L (14.0-18.0) gm/dl Oxyhemoglobin 93.8 L (95.0-99.0) % POC Glucose 122 H 129 H (70-105) mg/dL - Imaging Chest x-ray: report reviewed, image reviewed Assessment and Plan 50 year old male with right small pneumothorax likely due to barotrauma from high PEEP on vent. Stable hemodynamically and on vent. As long as patient is on vent with high pressures is at high for enlargement of ptx or tension pneumo. Spoke with bicycle technician and and daughter and will place chest tube on the right side. Got consent over the phone from daughter.
[2020-06-21 11:51] LABS: Hemoglobin 6.2 gm/dl (11.8-15.2); Mean Corpuscular HGB Conc 32 % (32-34); Mean Corpuscular Volume 105 fl (84-94); Platelet Count 264 K/mm3 (140-440); Red Blood Count 1.85 M/mm3 (3.65-5.03)
[2020-06-21 12:02] LABS: Hematocrit 19.5 % (35.5-45.6)
[2020-06-21 12:12] LABS: Blood Urea Nitrogen 31 mg/dL (9-20); Calcium 9.1 mg/dL (8.4-10.2); Hemolysis Index 0
[2020-06-21 12:22] LABS: BUN/Creatinine Ratio 62
[2020-06-21] MEDS ORDERED: SODIUM CHLORIDE 0.9% 500 ML 500 ML IV NR (13:02)
--- NOTE | 2020-06-21 14:08 | Progress Note ---
Assessment and Plan Acute hypoxemic respiratory failure due to COVID-19 Severe Sepsis Bilateral pneumonia Acute kidney injury (SEN) with acute tubular necrosis (ATN) Alcohol dependence Elevated liver function tests - hold Lovenox X 24 hours re: Left chest tube placement - stat PT/INR & address - transfuse PRBC for serum Hb of 6.2 - get KUB and address - continue care as below otherwise; - keep peep at 14 - continue bowel regimen - continue to wean supplemental oxygen for target O2 sat's > 92% acutely - continue to wean Levophed for target MAP > 65 mmHg (2 mics/min) - tracheostomy placement once oxygenation better / more hemodynamically stable - he will need a tracheostomy once numbers better - continue Daily SAT and SBT assessment as tolerated - VAP bundle addressed - continue lung protective strategies - continue bronchodilators with pulmonary hygiene per RT - wean per pulmonary driven protocols otherwise - accuchecks with glycemic control per SSI (While critically ill target blood glucose of 140-180 mg/dL; avoid hypoglycemia) - sedation prn for target RASS -1 to -2 - continue enteral nutritional support at goal rate as tolerated - continue airborne and contact isolation - follow repeat COVID-19 testing - continue Zinc & Vit C supplementaion - continue systemic steroids for Asthma / severe COVID infection - Prone positioning as tolerated - continue empiric full dose anticoagulation re: elevated d-dimers / hypercoagulable state - NOT a candidate for COVID convalescent plasma - continue systemic steroids X >/= 10 days - completed remdesivir dosing (total 5 days) - Monitor liver function test on Remdesivir - trend inflammatory markers - ferritin, Ddimer, CRP, LDH; to aid clinical decision making - empiric AB's coverage per ID rec's otherwise - accuchecks with glycemic control per SSI (While critically ill target blood glucose of 140-180 mg/dL; avoid hypoglycemia) - avoid nephrotoxins, renally dose all medications - continue to avoid benzodiazepine's, reduce the possibility of delirium - continue wound care per RN / WCN - prn analgesia per CPOT score - Maintenance of sleep-wake cycle, avoid delirium - continue to avoid benzodiazepine's, reduce the possibility of delirium - aspiration precautions - G.I. & VTE prophylaxis - PT/OT/ROM exercises - continue mobility protocols for pressure ulcer prophylaxis - Monitor hemodynamics closely - continue other care per attending / other consultants - discharge planning ongoing concurrently .... Re-evaluate in am & prn CONDITION: CRITICAL PROGNOSIS: GUARDED CODE STATUS: FULL CODE The high probability of a clinically significant, sudden or life-threatening d eterioration of the [respiratory, cardiovascular, hematologic & neurologic] system(s) required my full and direct attention, intervention and personal management. The aggregate critical care time was [37] minutes without overlap. Time includes spent on; [x] Data Review and interpretation [x] Patient assessment and monitoring of vital signs [x] Documentation [x] Medication orders and management Subjective Date of service: 06/21/20 Principal diagnosis: Ac hypoxemic resp failure; COVID-19; Severe Sepsis; Shaggy PNA; Alcohol Abuse Interval history: Patient is seen today for: Acute hypoxemic respiratory failure due to COVID-19; Severe Sepsis; Bilateral pneumonia; Alcohol dependence; Elevated liver function tests Seen and examined at bedside; 24hour events reviewed; nursing and respiratory care staff consulted; no adverse overnight events reported to me; resting in bed; remains on MVS; for chest tube today re: PTX; no overt hemodynamic decompensation; sedated; abdomen is distended Objective Vital Signs - 12hr 06/21/20 06/21/20 06/21/20 02:11 02:15 02:30 Temperature Pulse Rate 130 H 129 H 129 H Respiratory 22 19 Rate Blood Pressure 99/61 90/63 O2 Sat by Pulse 93 95 Oximetry 06/21/20 06/21/20 06/21/20 02:45 03:00 03:15 Temperature Pulse Rate 130 H 130 H 129 H Respiratory 26 H 28 H 25 H Rate Blood Pressure 96/72 104/71 110/62 O2 Sat by Pulse 94 91 94 Oximetry 06/21/20 06/21/20 06/21/20 03:30 03:45 04:00 Temperature 99.3 F Pulse Rate 128 H 128 H 127 H Respiratory 24 24 18 Rate Blood Pressure 111/65 106/62 95/64 O2 Sat by Pulse 93 97 93 Oximetry 06/21/20 06/21/20 06/21/20 04:10 04:15 04:30 Temperature Pulse Rate 126 H 127 H 127 H Respiratory 19 22 Rate Blood Pressure 95/64 98/62 94/62 O2 Sat by Pulse 96 94 96 Oximetry 06/21/20 06/21/20 06/21/20 04:45 05:00 05:16 Temperature Pulse Rate 126 H 125 H 124 H Respiratory 18 21 19 Rate Blood Pressure 97/64 102/67 119/77 O2 Sat by Pulse 95 96 90 Oximetry 06/21/20 06/21/20 06/21/20 05:30 05:45 06:00 Temperature Pulse Rate 123 H 124 H 123 H Respiratory 23 27 H 30 H Rate Blood Pressure 106/70 110/63 92/60 O2 Sat by Pulse 94 92 93 Oximetry 06/21/20 06/21/20 06/21/20 06:15 06:30 06:45 Temperature Pulse Rate 123 H 123 H 123 H Respiratory 30 H 30 H 29 H Rate Blood Pressure 102/63 98/58 89/57 O2 Sat by Pulse 93 93 94 Oximetry 06/21/20 06/21/20 06/21/20 07:00 07:15 07:23 Temperature Pulse Rate 122 H 121 H 123 H Respiratory 30 H 30 H Rate Blood Pressure 100/59 92/57 92/57 O2 Sat by Pulse 94 94 98 Oximetry 06/21/20 06/21/20 06/21/20 07:30 07:45 08:00 Temperature 99.1 F Pulse Rate 119 H 120 H 130 H Respiratory 30 H 30 H 30 H Rate Blood Pressure 95/65 89/65 108/67 O2 Sat by Pulse 92 93 94 Oximetry 06/21/20 06/21/20 06/21/20 08:15 08:30 08:46 Temperature Pulse Rate 121 H 125 H 130 H Respiratory 30 H 30 H 30 H Rate Blood Pressure 104/64 100/54 83/40 O2 Sat by Pulse 98 93 91 Oximetry 06/21/20 06/21/20 06/21/20 09:00 09:15 11:36 Temperature Pulse Rate 129 H 130 H 125 H Respiratory 30 H 30 H Rate Blood Pressure 91/50 89/59 100/63 O2 Sat by Pulse 92 93 97 Oximetry Constitutional: appears uncomfortable, other (middle aged obese male with mildly increased respiratory effort at rest on MVS) Eyes: non-icteric ENT: oropharynx moist, other (ETT 24 cm CHILO) Neck: supple, no JVD Effort: mildly labored Ascultation: Bilateral: diminished breath sounds, rhonchi (scant) Percussion: Bilateral: not dull Cardiovascular: regular rate and rhythm, other (No R/M) Gastrointestinal: normoactive bowel sounds, soft, non-tender, other (distended but soft) Integumentary: normal Extremities: no cyanosis, no edema, pulses normal, no ischemia or petechiae Neurologic: pupils equal and round, CN II-XII normal, other (unable top assess re: AMS) Psychiatric: other (sedated) CBC and BMP: 06/22/20 Unknown 06/22/20 04:00 ABG, PT/INR, D-dimer: ABG ABG pH 7.474 pH Units (7.350-7.450) H 06/21/20 04:00 POC ABG pCO2 83.1 mmHg (32.0-48.0) H 06/19/20 04:32 ABG pCO2 72.6 mm Hg 06/21/20 04:00 POC ABG pO2 65.8 mmHg (83-108) L 06/19/20 04:32 ABG pO2 89.3 mm Hg (80.0-90.0) 06/21/20 04:00 POC ABG HCO3 49.2 06/19/20 04:32 ABG O2 Saturation 97.0 % (95.0-99.0) 06/21/20 04:00 PT/INR, D-dimer PT 14.4 Sec. (12.2-14.9) 06/13/20 14:14 INR 1.13 (0.87-1.13) 06/13/20 14:14 D-Dimer 1887.82 ng/mlDDU (0-234) H 05/20/20 08:16 Abnormal lab findings: Abnormal Labs 05/09/20 05/09/20 05/09/20 12:59 12:59 12:59 WBC 11.8 H RBC Hgb Hct MCV 96 H MCH 34 H MCHC 35 H RDW Lymph % (Auto) 6.9 L Lymph # (Auto) 0.8 L Seg Neutrophils % 87.5 H Seg Neuts % (Manual) Lymphocytes % (Manual) Nucleated RBC % Seg Neutrophils # 10.3 H Seg Neutrophils # Man Lymphocytes # (Manual) Monocytes # (Manual) D-Dimer ABG pH POC ABG pCO2 POC ABG pO2 ABG pO2 ABG HCO3 ABG O2 Saturation ABG Base Excess ABG Hemoglobin ABG Oxyhemoglobin ABG Sodium ABG Potassium ABG Chloride ABG Glucose Oxyhemoglobin Sodium 130 L Potassium 3.5 L Chloride 86.4 L Carbon Dioxide BUN 33 H Creatinine 2.3 H Glucose 156 H POC Glucose Lactic Acid Calcium Magnesium Ferritin Total Bilirubin 3.40 H Direct Bilirubin 1.7 H AST 385 H ALT 134 H Alkaline Phosphatase Lactate Dehydrogenase C-Reactive Protein Total Protein Albumin 3.0 L Triglycerides Arterial Blood Glucose Arterial Blood Ionized Calcium Urine WBC (Auto) Coronavirus (PCR) SARS-CoV-2 IgG Ab 05/09/20 05/09/20 05/09/20 12:59 12:59 12:59 WBC RBC Hgb Hct MCV MCH MCHC RDW Lymph % (Auto) Lymph # (Auto) Seg Neutrophils % Seg Neuts % (Manual) Lymphocytes % (Manual) Nucleated RBC % Seg Neutrophils # Seg Neutrophils # Man Lymphocytes # (Manual) Monocytes # (Manual) D-Dimer 3242.51 H ABG pH POC ABG pCO2 POC ABG pO2 ABG pO2 ABG HCO3 ABG O2 Saturation ABG Base Excess ABG Hemoglobin ABG Oxyhemoglobin ABG Sodium ABG Potassium ABG Chloride ABG Glucose Oxyhemoglobin Sodium Potassium Chloride Carbon Dioxide BUN Creatinine Glucose 158 H POC Glucose Lactic Acid 3.50 H* Calcium Magnesium Ferritin Total Bilirubin Direct Bilirubin AST ALT Alkaline Phosphatase Lactate Dehydrogenase 2166 H C-Reactive Protein 39.00 H Total Protein Albumin Triglycerides Arterial Blood Glucose Arterial Blood Ionized Calcium Urine WBC (Auto) Coronavirus (PCR) SARS-CoV-2 IgG Ab 05/09/20 05/09/20 05/09/20 12:59 14:20 14:20 WBC RBC Hgb Hct MCV MCH MCHC RDW Lymph % (Auto) Lymph # (Auto) Seg Neutrophils % Seg Neuts % (Manual) Lymphocytes % (Manual) Nucleated RBC % Seg Neutrophils # Seg Neutrophils # Man Lymphocytes # (Manual) Monocytes # (Manual) D-Dimer 2861.78 H ABG pH POC ABG pCO2 POC ABG pO2 ABG pO2 ABG HCO3 ABG O2 Saturation ABG Base Excess ABG Hemoglobin ABG Oxyhemoglobin ABG Sodium ABG Potassium ABG Chloride ABG Glucose Oxyhemoglobin Sodium Potassium Chloride Carbon Dioxide BUN Creatinine Glucose POC Glucose Lactic Acid 2.20 H* Calcium Magnesium Ferritin 53326.0 H Total Bilirubin Direct Bilirubin AST ALT Alkaline Phosphatase Lactate Dehydrogenase C-Reactive Protein Total Protein Albumin Triglycerides Arterial Blood Glucose Arterial Blood Ionized Calcium Urine WBC (Auto) Coronavirus (PCR) SARS-CoV-2 IgG Ab 05/09/20 05/09/2020 14:20 14:20 15:56 WBC RBC Hgb Hct MCV MCH MCHC RDW Lymph % (Auto) Lymph # (Auto) Seg Neutrophils % Seg Neuts % (Manual) Lymphocytes % (Manual) Nucleated RBC % Seg Neutrophils # Seg Neutrophils # Man Lymphocytes # (Manual) Monocytes # (Manual) D-Dimer ABG pH POC ABG pCO2 POC ABG pO2 57.3 L ABG pO2 ABG HCO3 ABG O2 Saturation ABG Base Excess ABG Hemoglobin ABG Oxyhemoglobin 86.3 L ABG Sodium 129.9 L ABG Potassium ABG Chloride ABG Glucose 146 H Oxyhemoglobin Sodium Potassium Chloride Carbon Dioxide BUN Creatinine Glucose 143 H POC Glucose Lactic Acid Calcium Magnesium Ferritin 10259.0 H Total Bilirubin Direct Bilirubin AST ALT Alkaline Phosphatase Lactate Dehydrogenase 1953 H C-Reactive Protein 33.50 H Total Protein Albumin Triglycerides Arterial Blood Glucose 146 H Arterial Blood Ionized Calcium 3.9 L Urine WBC (Auto) Coronavirus (PCR) SARS-CoV-2 IgG Ab 05/10/20 05/10/20 05/10/20 10:32 10:32 18:50 WBC 15.4 H RBC Hgb Hct MCV 97 H MCH 33 H MCHC RDW 13.1 L Lymph % (Auto) Lymph # (Auto) Seg Neutrophils % Seg Neuts % (Manual) 89.0 H Lymphocytes % (Manual) 8.0 L Nucleated RBC % Seg Neutrophils # Seg Neutrophils # Man 13.7 H Lymphocytes # (Manual) Monocytes # (Manual) D-Dimer ABG pH POC ABG pCO2 POC ABG pO2 ABG pO2 ABG HCO3 ABG O2 Saturation ABG Base Excess ABG Hemoglobin ABG Oxyhemoglobin ABG Sodium ABG Potassium ABG Chloride ABG Glucose Oxyhemoglobin Sodium 136 L Potassium Chloride 97.4 L Carbon Dioxide BUN 37 H Creatinine 1.7 H Glucose 209 H POC Glucose Lactic Acid Calcium Magnesium Ferritin > 2000.0 H Total Bilirubin Direct Bilirubin AST ALT Alkaline Phosphatase Lactate Dehydrogenase C-Reactive Protein Total Protein Albumin Triglycerides Arterial Blood Glucose Arterial Blood Ionized Calcium Urine WBC (Auto) Coronavirus (PCR) SARS-CoV-2 IgG Ab 05/10/20 05/10/20 05/10/20 18:50 19:00 Unknown WBC RBC Hgb Hct MCV MCH MCHC RDW Lymph % (Auto) Lymph # (Auto) Seg Neutrophils % Seg Neuts % (Manual) Lymphocytes % (Manual) Nucleated RBC % Seg Neutrophils # Seg Neutrophils # Man Lymphocytes # (Manual) Monocytes # (Manual) D-Dimer > 49861 H ABG pH POC ABG pCO2 POC ABG pO2 ABG pO2 ABG HCO3 ABG O2 Saturation ABG Base Excess ABG Hemoglobin ABG Oxyhemoglobin ABG Sodium ABG Potassium ABG Chloride ABG Glucose Oxyhemoglobin Sodium Potassium Chloride Carbon Dioxide BUN Creatinine Glucose POC Glucose Lactic Acid Calcium Magnesium Ferritin Total Bilirubin Direct Bilirubin AST ALT Alkaline Phosphatase Lactate Dehydrogenase 1879 H C-Reactive Protein 24.80 H Total Protein Albumin Triglycerides Arterial Blood Glucose Arterial Blood Ionized Calcium Urine WBC (Auto) 11.0 H Coronavirus (PCR) SARS-CoV-2 IgG Ab 05/10/20 05/11/20 05/11/20 Unknown 07:30 07:30 WBC RBC Hgb Hct MCV MCH MCHC RDW Lymph % (Auto) Lymph # (Auto) Seg Neutrophils % Seg Neuts % (Manual) Lymphocytes % (Manual) Nucleated RBC % Seg Neutrophils # Seg Neutrophils # Man Lymphocytes # (Manual) Monocytes # (Manual) D-Dimer > 2000 H ABG pH POC ABG pCO2 POC ABG pO2 ABG pO2 ABG HCO3 ABG O2 Saturation ABG Base Excess ABG Hemoglobin ABG Oxyhemoglobin ABG Sodium ABG Potassium ABG Chloride ABG Glucose Oxyhemoglobin Sodium Potassium Chloride 96.3 L Carbon Dioxide BUN 36 H Creatinine Glucose 161 H POC Glucose Lactic Acid Calcium 8.3 L Magnesium Ferritin Total Bilirubin 1.50 H Direct Bilirubin 0.6 H AST 178 H ALT 111 H Alkaline Phosphatase Lactate Dehydrogenase C-Reactive Protein Total Protein Albumin 3.0 L Triglycerides Arterial Blood Glucose Arterial Blood Ionized Calcium Urine WBC (Auto) Coronavirus (PCR) Positive A SARS-CoV-2 IgG Ab 05/11/20 05/11/20 05/11/20 07:30 07:30 07:30 WBC RBC Hgb Hct MCV MCH MCHC RDW Lymph % (Auto) Lymph # (Auto) Seg Neutrophils % Seg Neuts % (Manual) Lymphocytes % (Manual) Nucleated RBC % Seg Neutrophils # Seg Neutrophils # Man Lymphocytes # (Manual) Monocytes # (Manual) D-Dimer ABG pH POC ABG pCO2 POC ABG pO2 ABG pO2 ABG HCO3 ABG O2 Saturation ABG Base Excess ABG Hemoglobin ABG Oxyhemoglobin ABG Sodium ABG Potassium ABG Chloride ABG Glucose Oxyhemoglobin Sodium Potassium Chloride Carbon Dioxide BUN Creatinine Glucose POC Glucose Lactic Acid Calcium Magnesium Ferritin 53479.0 H Total Bilirubin Direct Bilirubin AST ALT Alkaline Phosphatase Lactate Dehydrogenase 1523 H C-Reactive Protein 12.90 H Total Protein Albumin Triglycerides Arterial Blood Glucose Arterial Blood Ionized Calcium Urine WBC (Auto) Coronavirus (PCR) SARS-CoV-2 IgG Ab Reactive A 05/13/20 05/13/20 05/15/20 05:20 05:20 08:15 WBC RBC Hgb Hct MCV MCH MCHC RDW Lymph % (Auto) Lymph # (Auto) Seg Neutrophils % Seg Neuts % (Manual) Lymphocytes % (Manual) Nucleated RBC % Seg Neutrophils # Seg Neutrophils # Man Lymphocytes # (Manual) Monocytes # (Manual) D-Dimer > 76557 H 5318.28 H ABG pH POC ABG pCO2 POC ABG pO2 ABG pO2 ABG HCO3 ABG O2 Saturation ABG Base Excess ABG Hemoglobin ABG Oxyhemoglobin ABG Sodium ABG Potassium ABG Chloride ABG Glucose Oxyhemoglobin Sodium Potassium Chloride Carbon Dioxide 32 H BUN 30 H Creatinine Glucose 156 H POC Glucose Lactic Acid Calcium Magnesium 2.60 H Ferritin Total Bilirubin 1.40 H Direct Bilirubin AST 121 H ALT 119 H Alkaline Phosphatase Lactate Dehydrogenase 957 H C-Reactive Protein 4.00 H Total Protein Albumin 3.0 L Triglycerides Arterial Blood Glucose Arterial Blood Ionized Calcium Urine WBC (Auto) Coronavirus (PCR) SARS-CoV-2 IgG Ab 05/15/20 05/15/20 05/15/20 08:15 08:15 08:15 WBC 12.4 H RBC Hgb Hct MCV 98 H MCH 33 H MCHC RDW Lymph % (Auto) 9.7 L Lymph # (Auto) Seg Neutrophils % 86.8 H Seg Neuts % (Manual) Lymphocytes % (Manual) Nucleated RBC % Seg Neutrophils # 10.8 H Seg Neutrophils # Man Lymphocytes # (Manual) Monocytes # (Manual) D-Dimer ABG pH POC ABG pCO2 POC ABG pO2 ABG pO2 ABG HCO3 ABG O2 Saturation ABG Base Excess ABG Hemoglobin ABG Oxyhemoglobin ABG Sodium ABG Potassium ABG Chloride ABG Glucose Oxyhemoglobin Sodium Potassium Chloride 94.8 L Carbon Dioxide 32 H BUN 22 H Creatinine Glucose 115 H POC Glucose Lactic Acid Calcium 8.3 L Magnesium Ferritin 2494.0 H Total Bilirubin Direct Bilirubin AST 73 H ALT 121 H Alkaline Phosphatase Lactate Dehydrogenase 835 H C-Reactive Protein 3.40 H Total Protein 6.1 L Albumin 3.0 L Triglycerides Arterial Blood Glucose Arterial Blood Ionized Calcium Urine WBC (Auto) Coronavirus (PCR) SARS-CoV-2 IgG Ab 05/17/20 05/17/20 05/17/20 05:50 05:50 05:50 WBC RBC Hgb Hct MCV MCH MCHC RDW Lymph % (Auto) Lymph # (Auto) Seg Neutrophils % Seg Neuts % (Manual) Lymphocytes % (Manual) Nucleated RBC % Seg Neutrophils # Seg Neutrophils # Man Lymphocytes # (Manual) Monocytes # (Manual) D-Dimer 2911.42 H ABG pH POC ABG pCO2 POC ABG pO2 ABG pO2 ABG HCO3 ABG O2 Saturation ABG Base Excess ABG Hemoglobin ABG Oxyhemoglobin ABG Sodium ABG Potassium ABG Chloride ABG Glucose Oxyhemoglobin Sodium 136 L Potassium Chloride 96.0 L Carbon Dioxide 34 H BUN 22 H Creatinine Glucose 140 H POC Glucose Lactic Acid Calcium Magnesium Ferritin 2082.0 H Total Bilirubin Direct Bilirubin AST ALT 75 H Alkaline Phosphatase Lactate Dehydrogenase 601 H C-Reactive Protein 2.70 H Total Protein Albumin 2.9 L Triglycerides Arterial Blood Glucose Arterial Blood Ionized Calcium Urine WBC (Auto) Coronavirus (PCR) SARS-CoV-2 IgG Ab 05/17/20 05/18/20 05/20/20 05:50 12:22 08:16 WBC RBC Hgb Hct MCV 98 H MCH 33 H MCHC RDW Lymph % (Auto) 8.0 L Lymph # (Auto) 0.8 L Seg Neutrophils % 89.3 H Seg Neuts % (Manual) Lymphocytes % (Manual) Nucleated RBC % Seg Neutrophils # 8.8 H Seg Neutrophils # Man Lymphocytes # (Manual) Monocytes # (Manual) D-Dimer 1887.82 H ABG pH POC ABG pCO2 POC ABG pO2 ABG pO2 ABG HCO3 ABG O2 Saturation ABG Base Excess ABG Hemoglobin ABG Oxyhemoglobin ABG Sodium ABG Potassium ABG Chloride ABG Glucose Oxyhemoglobin Sodium Potassium Chloride Carbon Dioxide BUN Creatinine Glucose POC Glucose 178 H Lactic Acid Calcium Magnesium Ferritin Total Bilirubin Direct Bilirubin AST ALT Alkaline Phosphatase Lactate Dehydrogenase C-Reactive Protein Total Protein Albumin Triglycerides Arterial Blood Glucose Arterial Blood Ionized Calcium Urine WBC (Auto) Coronavirus (PCR) SARS-CoV-2 IgG Ab 05/20/20 05/20/20 05/21/20 08:16 08:16 21:10 WBC RBC Hgb Hct MCV MCH MCHC RDW Lymph % (Auto) Lymph # (Auto) Seg Neutrophils % Seg Neuts % (Manual) Lymphocytes % (Manual) Nucleated RBC % Seg Neutrophils # Seg Neutrophils # Man Lymphocytes # (Manual) Monocytes # (Manual) D-Dimer ABG pH 7.483 H POC ABG pCO2 POC ABG pO2 ABG pO2 50.0 L ABG HCO3 27.0 H ABG O2 Saturation 86.2 L ABG Base Excess 3.7 H ABG Hemoglobin ABG Oxyhemoglobin ABG Sodium ABG Potassium ABG Chloride ABG Glucose Oxyhemoglobin 84.2 L Sodium Potassium Chloride Carbon Dioxide BUN Creatinine Glucose POC Glucose Lactic Acid Calcium Magnesium Ferritin 1960.0 H Total Bilirubin Direct Bilirubin AST ALT Alkaline Phosphatase Lactate Dehydrogenase 705 H C-Reactive Protein 3.10 H Total Protein Albumin Triglycerides Arterial Blood Glucose Arterial Blood Ionized Calcium Urine WBC (Auto) Coronavirus (PCR) SARS-CoV-2 IgG Ab 05/22/20 05/22/20 05/22/20 04:01 07:53 07:53 WBC 19.2 H RBC Hgb Hct MCV 98 H MCH 34 H MCHC RDW Lymph % (Auto) Lymph # (Auto) Seg Neutrophils % Seg Neuts % (Manual) 96.0 H Lymphocytes % (Manual) 1.0 L Nucleated RBC % Seg Neutrophils # Seg Neutrophils # Man 18.4 H Lymphocytes # (Manual) 0.2 L Monocytes # (Manual) D-Dimer ABG pH POC ABG pCO2 53.8 H POC ABG pO2 125.5 H ABG pO2 ABG HCO3 ABG O2 Saturation ABG Base Excess ABG Hemoglobin ABG Oxyhemoglobin ABG Sodium 131.8 L ABG Potassium 4.8 H ABG Chloride 94.0 L ABG Glucose 163 H Oxyhemoglobin Sodium 131 L Potassium Chloride 93.4 L Carbon Dioxide BUN 40 H Creatinine Glucose 176 H POC Glucose Lactic Acid Calcium Magnesium 2.70 H Ferritin Total Bilirubin 1.80 H Direct Bilirubin AST 45 H ALT 116 H Alkaline Phosphatase 181 H Lactate Dehydrogenase C-Reactive Protein Total Protein Albumin 2.6 L Triglycerides Arterial Blood Glucose 163 H Arterial Blood Ionized Calcium 4.5 L Urine WBC (Auto) Coronavirus (PCR) SARS-CoV-2 IgG Ab 05/23/20 05/24/20 05/24/20 04:17 03:07 04:08 WBC RBC Hgb Hct MCV MCH MCHC RDW Lymph % (Auto) Lymph # (Auto) Seg Neutrophils % Seg Neuts % (Manual) Lymphocytes % (Manual) Nucleated RBC % Seg Neutrophils # Seg Neutrophils # Man Lymphocytes # (Manual) Monocytes # (Manual) D-Dimer ABG pH 7.328 L POC ABG pCO2 POC ABG pO2 ABG pO2 72.8 L 73.4 L ABG HCO3 31.0 H 34.0 H ABG O2 Saturation 93.5 L ABG Base Excess 3.5 H 7.7 H ABG Hemoglobin 13.3 L 12.1 L ABG Oxyhemoglobin ABG Sodium ABG Potassium ABG Chloride ABG Glucose Oxyhemoglobin 91.5 L 94.3 L Sodium Potassium Chloride Carbon Dioxide BUN Creatinine Glucose POC Glucose 155 H Lactic Acid Calcium Magnesium Ferritin Total Bilirubin Direct Bilirubin AST ALT Alkaline Phosphatase Lactate Dehydrogenase C-Reactive Protein Total Protein Albumin Triglycerides Arterial Blood Glucose Arterial Blood Ionized Calcium Urine WBC (Auto) Coronavirus (PCR) SARS-CoV-2 IgG Ab 05/24/20 05/24/20 05/24/20 09:33 12:21 17:52 WBC RBC Hgb Hct MCV MCH MCHC RDW Lymph % (Auto) Lymph # (Auto) Seg Neutrophils % Seg Neuts % (Manual) Lymphocytes % (Manual) Nucleated RBC % Seg Neutrophils # Seg Neutrophils # Man Lymphocytes # (Manual) Monocytes # (Manual) D-Dimer ABG pH POC ABG pCO2 POC ABG pO2 ABG pO2 ABG HCO3 ABG O2 Saturation ABG Base Excess ABG Hemoglobin ABG Oxyhemoglobin ABG Sodium ABG Potassium ABG Chloride ABG Glucose Oxyhemoglobin Sodium Potassium Chloride Carbon Dioxide 34 H D BUN 28 H Creatinine 0.7 L Glucose 168 H POC Glucose 173 H 164 H Lactic Acid Calcium Magnesium Ferritin Total Bilirubin Direct Bilirubin AST ALT Alkaline Phosphatase Lactate Dehydrogenase C-Reactive Protein Total Protein Albumin Triglycerides Arterial Blood Glucose Arterial Blood Ionized Calcium Urine WBC (Auto) Coronavirus (PCR) SARS-CoV-2 IgG Ab 05/24/20 05/25/20 05/25/20 23:47 04:29 05:46 WBC RBC Hgb Hct MCV MCH MCHC RDW Lymph % (Auto) Lymph # (Auto) Seg Neutrophils % Seg Neuts % (Manual) Lymphocytes % (Manual) Nucleated RBC % Seg Neutrophils # Seg Neutrophils # Man Lymphocytes # (Manual) Monocytes # (Manual) D-Dimer ABG pH POC ABG pCO2 68.6 H POC ABG pO2 ABG pO2 ABG HCO3 ABG O2 Saturation ABG Base Excess ABG Hemoglobin ABG Oxyhemoglobin ABG Sodium ABG Potassium 4.7 H ABG Chloride ABG Glucose 226 H Oxyhemoglobin Sodium Potassium Chloride Carbon Dioxide BUN Creatinine Glucose POC Glucose 171 H 201 H Lactic Acid Calcium Magnesium Ferritin Total Bilirubin Direct Bilirubin AST ALT Alkaline Phosphatase Lactate Dehydrogenase C-Reactive Protein Total Protein Albumin Triglycerides Arterial Blood Glucose 226 H Arterial Blood Ionized Calcium Urine WBC (Auto) Coronavirus (PCR) SARS-CoV-2 IgG Ab 05/25/20 05/25/20 05/25/20 08:37 08:37 12:38 WBC 12.0 H RBC 3.64 L Hgb Hct MCV 99 H MCH 33 H MCHC RDW Lymph % (Auto) Lymph # (Auto) Seg Neutrophils % Seg Neuts % (Manual) Lymphocytes % (Manual) Nucleated RBC % Seg Neutrophils # Seg Neutrophils # Man Lymphocytes # (Manual) Monocytes # (Manual) D-Dimer ABG pH POC ABG pCO2 POC ABG pO2 ABG pO2 ABG HCO3 ABG O2 Saturation ABG Base Excess ABG Hemoglobin ABG Oxyhemoglobin ABG Sodium ABG Potassium ABG Chloride ABG Glucose Oxyhemoglobin Sodium Potassium Chloride 97.3 L Carbon Dioxide 35 H BUN 25 H Creatinine 0.7 L Glucose 191 H POC Glucose 182 H Lactic Acid Calcium Magnesium Ferritin Total Bilirubin Direct Bilirubin AST ALT Alkaline Phosphatase Lactate Dehydrogenase C-Reactive Protein Total Protein Albumin Triglycerides Arterial Blood Glucose Arterial Blood Ionized Calcium Urine WBC (Auto) Coronavirus (PCR) SARS-CoV-2 IgG Ab 05/25/20 05/26/20 05/26/20 18:16 00:06 04:50 WBC RBC Hgb Hct MCV MCH MCHC RDW Lymph % (Auto) Lymph # (Auto) Seg Neutrophils % Seg Neuts % (Manual) Lymphocytes % (Manual) Nucleated RBC % Seg Neutrophils # Seg Neutrophils # Man Lymphocytes # (Manual) Monocytes # (Manual) D-Dimer ABG pH POC ABG pCO2 POC ABG pO2 ABG pO2 221.5 H ABG HCO3 40.4 H ABG O2 Saturation 99.3 H ABG Base Excess 12.8 H ABG Hemoglobin 10.4 L ABG Oxyhemoglobin ABG Sodium ABG Potassium ABG Chloride ABG Glucose Oxyhemoglobin Sodium Potassium Chloride Carbon Dioxide BUN Creatinine Glucose POC Glucose 176 H 152 H Lactic Acid Calcium Magnesium Ferritin Total Bilirubin Direct Bilirubin AST ALT Alkaline Phosphatase Lactate Dehydrogenase C-Reactive Protein Total Protein Albumin Triglycerides Arterial Blood Glucose Arterial Blood Ionized Calcium Urine WBC (Auto) Coronavirus (PCR) SARS-CoV-2 IgG Ab 05/26/20 05/26/20 05/26/20 06:11 07:51 07:51 WBC 13.4 H RBC 3.64 L Hgb Hct MCV 98 H MCH 33 H MCHC RDW Lymph % (Auto) Lymph # (Auto) Seg Neutrophils % Seg Neuts % (Manual) Lymphocytes % (Manual) Nucleated RBC % Seg Neutrophils # Seg Neutrophils # Man Lymphocytes # (Manual) Monocytes # (Manual) D-Dimer ABG pH POC ABG pCO2 POC ABG pO2 ABG pO2 ABG HCO3 ABG O2 Saturation ABG Base Excess ABG Hemoglobin ABG Oxyhemoglobin ABG Sodium ABG Potassium ABG Chloride ABG Glucose Oxyhemoglobin Sodium Potassium Chloride 96.6 L Carbon Dioxide 39 H BUN 29 H Creatinine 0.7 L Glucose 174 H POC Glucose 165 H Lactic Acid Calcium Magnesium Ferritin Total Bilirubin Direct Bilirubin AST ALT Alkaline Phosphatase Lactate Dehydrogenase C-Reactive Protein Total Protein Albumin Triglycerides Arterial Blood Glucose Arterial Blood Ionized Calcium Urine WBC (Auto) Coronavirus (PCR) SARS-CoV-2 IgG Ab 05/26/20 05/27/20 05/27/20 23:23 03:43 05:29 WBC RBC Hgb Hct MCV MCH MCHC RDW Lymph % (Auto) Lymph # (Auto) Seg Neutrophils % Seg Neuts % (Manual) Lymphocytes % (Manual) Nucleated RBC % Seg Neutrophils # Seg Neutrophils # Man Lymphocytes # (Manual) Monocytes # (Manual) D-Dimer ABG pH 7.480 H POC ABG pCO2 52.4 H POC ABG pO2 61.4 L ABG pO2 ABG HCO3 ABG O2 Saturation ABG Base Excess ABG Hemoglobin ABG Oxyhemoglobin ABG Sodium 134.9 L ABG Potassium ABG Chloride 95.0 L ABG Glucose 221 H Oxyhemoglobin Sodium Potassium Chloride Carbon Dioxide BUN Creatinine Glucose POC Glucose 169 H 227 H Lactic Acid Calcium Magnesium Ferritin Total Bilirubin Direct Bilirubin AST ALT Alkaline Phosphatase Lactate Dehydrogenase C-Reactive Protein Total Protein Albumin Triglycerides Arterial Blood Glucose 221 H Arterial Blood Ionized Calcium 4.5 L Urine WBC (Auto) Coronavirus (PCR) SARS-CoV-2 IgG Ab 05/27/20 05/27/20 05/27/20 07:19 12:18 13:50 WBC RBC Hgb Hct MCV MCH MCHC RDW Lymph % (Auto) Lymph # (Auto) Seg Neutrophils % Seg Neuts % (Manual) Lymphocytes % (Manual) Nucleated RBC % Seg Neutrophils # Seg Neutrophils # Man Lymphocytes # (Manual) Monocytes # (Manual) D-Dimer ABG pH POC ABG pCO2 POC ABG pO2 ABG pO2 ABG HCO3 ABG O2 Saturation ABG Base Excess ABG Hemoglobin ABG Oxyhemoglobin ABG Sodium ABG Potassium ABG Chloride ABG Glucose Oxyhemoglobin Sodium Potassium Chloride Carbon Dioxide BUN Creatinine Glucose POC Glucose 114 H 148 H Lactic Acid Calcium Magnesium Ferritin Total Bilirubin Direct Bilirubin AST ALT Alkaline Phosphatase Lactate Dehydrogenase C-Reactive Protein Total Protein Albumin Triglycerides 247 H Arterial Blood Glucose Arterial Blood Ionized Calcium Urine WBC (Auto) Coronavirus (PCR) SARS-CoV-2 IgG Ab 05/28/20 05/28/20 05/28/20 00:13 04:16 05:22 WBC RBC Hgb Hct MCV MCH MCHC RDW Lymph % (Auto) Lymph # (Auto) Seg Neutrophils % Seg Neuts % (Manual) Lymphocytes % (Manual) Nucleated RBC % Seg Neutrophils # Seg Neutrophils # Man Lymphocytes # (Manual) Monocytes # (Manual) D-Dimer ABG pH POC ABG pCO2 64.4 H POC ABG pO2 60.5 L ABG pO2 ABG HCO3 ABG O2 Saturation ABG Base Excess ABG Hemoglobin ABG Oxyhemoglobin ABG Sodium ABG Potassium ABG Chloride 95.0 L ABG Glucose 209 H Oxyhemoglobin Sodium Potassium Chloride Carbon Dioxide BUN Creatinine Glucose POC Glucose 155 H 186 H Lactic Acid Calcium Magnesium Ferritin Total Bilirubin Direct Bilirubin AST ALT Alkaline Phosphatase Lactate Dehydrogenase C-Reactive Protein Total Protein Albumin Triglycerides Arterial Blood Glucose 209 H Arterial Blood Ionized Calcium Urine WBC (Auto) Coronavirus (PCR) SARS-CoV-2 IgG Ab 05/28/20 05/28/20 05/29/20 12:45 17:39 00:37 WBC RBC Hgb Hct MCV MCH MCHC RDW Lymph % (Auto) Lymph # (Auto) Seg Neutrophils % Seg Neuts % (Manual) Lymphocytes % (Manual) Nucleated RBC % Seg Neutrophils # Seg Neutrophils # Man Lymphocytes # (Manual) Monocytes # (Manual) D-Dimer ABG pH POC ABG pCO2 POC ABG pO2 ABG pO2 ABG HCO3 ABG O2 Saturation ABG Base Excess ABG Hemoglobin ABG Oxyhemoglobin ABG Sodium ABG Potassium ABG Chloride ABG Glucose Oxyhemoglobin Sodium Potassium Chloride Carbon Dioxide BUN Creatinine Glucose POC Glucose 143 H 164 H 221 H Lactic Acid Calcium Magnesium Ferritin Total Bilirubin Direct Bilirubin AST ALT Alkaline Phosphatase Lactate Dehydrogenase C-Reactive Protein Total Protein Albumin Triglycerides Arterial Blood Glucose Arterial Blood Ionized Calcium Urine WBC (Auto) Coronavirus (PCR) SARS-CoV-2 IgG Ab 05/29/20 05/29/20 05/29/20 04:15 05:33 12:34 WBC RBC Hgb Hct MCV MCH MCHC RDW Lymph % (Auto) Lymph # (Auto) Seg Neutrophils % Seg Neuts % (Manual) Lymphocytes % (Manual) Nucleated RBC % Seg Neutrophils # Seg Neutrophils # Man Lymphocytes # (Manual) Monocytes # (Manual) D-Dimer ABG pH 7.463 H POC ABG pCO2 56.3 H POC ABG pO2 81.2 L ABG pO2 ABG HCO3 ABG O2 Saturation ABG Base Excess ABG Hemoglobin ABG Oxyhemoglobin ABG Sodium ABG Potassium ABG Chloride 96.0 L ABG Glucose 194 H Oxyhemoglobin Sodium Potassium Chloride Carbon Dioxide BUN Creatinine Glucose POC Glucose 133 H 221 H Lactic Acid Calcium Magnesium Ferritin Total Bilirubin Direct Bilirubin AST ALT Alkaline Phosphatase Lactate Dehydrogenase C-Reactive Protein Total Protein Albumin Triglycerides Arterial Blood Glucose 194 H Arterial Blood Ionized Calcium 4.5 L Urine WBC (Auto) Coronavirus (PCR) SARS-CoV-2 IgG Ab 05/29/20 05/30/20 05/30/20 18:07 00:12 05:38 WBC RBC Hgb Hct MCV MCH MCHC RDW Lymph % (Auto) Lymph # (Auto) Seg Neutrophils % Seg Neuts % (Manual) Lymphocytes % (Manual) Nucleated RBC % Seg Neutrophils # Seg Neutrophils # Man Lymphocytes # (Manual) Monocytes # (Manual) D-Dimer ABG pH POC ABG pCO2 POC ABG pO2 ABG pO2 ABG HCO3 ABG O2 Saturation ABG Base Excess ABG Hemoglobin ABG Oxyhemoglobin ABG Sodium ABG Potassium ABG Chloride ABG Glucose Oxyhemoglobin Sodium Potassium Chloride Carbon Dioxide BUN Creatinine Glucose POC Glucose 162 H 190 H 208 H Lactic Acid Calcium Magnesium Ferritin Total Bilirubin Direct Bilirubin AST ALT Alkaline Phosphatase Lactate Dehydrogenase C-Reactive Protein Total Protein Albumin Triglycerides Arterial Blood Glucose Arterial Blood Ionized Calcium Urine WBC (Auto) Coronavirus (PCR) SARS-CoV-2 IgG Ab 11/22/20 11/22/20 11/22/20 09:30 11:35 11:54 WBC 12.4 H RBC 3.48 L Hgb 11.3 L Hct 34.6 L MCV 99 H MCH 33 H MCHC RDW Lymph % (Auto) Lymph # (Auto) Seg Neutrophils % Seg Neuts % (Manual) Lymphocytes % (Manual) Nucleated RBC % Seg Neutrophils # Seg Neutrophils # Man Lymphocytes # (Manual) Monocytes # (Manual) D-Dimer ABG pH 7.455 H POC ABG pCO2 57.5 H POC ABG pO2 81.5 L ABG pO2 ABG HCO3 ABG O2 Saturation ABG Base Excess ABG Hemoglobin ABG Oxyhemoglobin ABG Sodium ABG Potassium ABG Chloride 96.0 L ABG Glucose 204 H Oxyhemoglobin Sodium Potassium Chloride Carbon Dioxide BUN Creatinine Glucose POC Glucose 183 H Lactic Acid Calcium Magnesium Ferritin Total Bilirubin Direct Bilirubin AST ALT Alkaline Phosphatase Lactate Dehydrogenase C-Reactive Protein Total Protein Albumin Triglycerides Arterial Blood Glucose 204 H Arterial Blood Ionized Calcium Urine WBC (Auto) Coronavirus (PCR) SARS-CoV-2 IgG Ab 05/30/20 05/31/20 05/31/20 18:01 00:10 03:22 WBC RBC Hgb Hct MCV MCH MCHC RDW Lymph % (Auto) Lymph # (Auto) Seg Neutrophils % Seg Neuts % (Manual) Lymphocytes % (Manual) Nucleated RBC % Seg Neutrophils # Seg Neutrophils # Man Lymphocytes # (Manual) Monocytes # (Manual) D-Dimer ABG pH POC ABG pCO2 60.4 H POC ABG pO2 71.5 L ABG pO2 ABG HCO3 ABG O2 Saturation ABG Base Excess ABG Hemoglobin ABG Oxyhemoglobin ABG Sodium ABG Potassium ABG Chloride 96.0 L ABG Glucose 169 H Oxyhemoglobin Sodium Potassium Chloride Carbon Dioxide BUN Creatinine Glucose POC Glucose 184 H 135 H Lactic Acid Calcium Magnesium Ferritin Total Bilirubin Direct Bilirubin AST ALT Alkaline Phosphatase Lactate Dehydrogenase C-Reactive Protein Total Protein Albumin Triglycerides Arterial Blood Glucose 169 H Arterial Blood Ionized Calcium 4.5 L Urine WBC (Auto) Coronavirus (PCR) SARS-CoV-2 IgG Ab 05/31/20 05/31/20 05/31/20 05:24 11:18 14:41 WBC RBC Hgb Hct MCV MCH MCHC RDW Lymph % (Auto) Lymph # (Auto) Seg Neutrophils % Seg Neuts % (Manual) Lymphocytes % (Manual) Nucleated RBC % Seg Neutrophils # Seg Neutrophils # Man Lymphocytes # (Manual) Monocytes # (Manual) D-Dimer ABG pH POC ABG pCO2 POC ABG pO2 ABG pO2 ABG HCO3 ABG O2 Saturation ABG Base Excess ABG Hemoglobin ABG Oxyhemoglobin ABG Sodium ABG Potassium ABG Chloride ABG Glucose Oxyhemoglobin Sodium Potassium Chloride 96.8 L Carbon Dioxide 37 H BUN 31 H Creatinine 0.6 L Glucose 213 H POC Glucose 164 H 208 H Lactic Acid Calcium Magnesium Ferritin Total Bilirubin Direct Bilirubin AST ALT Alkaline Phosphatase Lactate Dehydrogenase C-Reactive Protein Total Protein Albumin Triglycerides Arterial Blood Glucose Arterial Blood Ionized Calcium Urine WBC (Auto) Coronavirus (PCR) SARS-CoV-2 IgG Ab 05/31/20 05/31/20 06/01/20 17:37 23:47 03:48 WBC RBC Hgb Hct MCV MCH MCHC RDW Lymph % (Auto) Lymph # (Auto) Seg Neutrophils % Seg Neuts % (Manual) Lymphocytes % (Manual) Nucleated RBC % Seg Neutrophils # Seg Neutrophils # Man Lymphocytes # (Manual) Monocytes # (Manual) D-Dimer ABG pH POC ABG pCO2 59.7 H POC ABG pO2 73.9 L ABG pO2 ABG HCO3 ABG O2 Saturation ABG Base Excess ABG Hemoglobin ABG Oxyhemoglobin ABG Sodium ABG Potassium ABG Chloride 95.0 L ABG Glucose 256 H Oxyhemoglobin Sodium Potassium Chloride Carbon Dioxide BUN Creatinine Glucose POC Glucose 168 H 178 H Lactic Acid Calcium Magnesium Ferritin Total Bilirubin Direct Bilirubin AST ALT Alkaline Phosphatase Lactate Dehydrogenase C-Reactive Protein Total Protein Albumin Triglycerides Arterial Blood Glucose 256 H Arterial Blood Ionized Calcium Urine WBC (Auto) Coronavirus (PCR) SARS-CoV-2 IgG Ab 06/01/20 06/01/20 06/01/20 05:01 07:47 07:47 WBC 14.4 H RBC 3.46 L Hgb 11.1 L Hct 34.3 L MCV 99 H MCH MCHC RDW Lymph % (Auto) Lymph # (Auto) Seg Neutrophils % Seg Neuts % (Manual) 86.0 H Lymphocytes % (Manual) 9.0 L Nucleated RBC % Seg Neutrophils # Seg Neutrophils # Man 12.4 H Lymphocytes # (Manual) Monocytes # (Manual) D-Dimer ABG pH POC ABG pCO2 POC ABG pO2 ABG pO2 ABG HCO3 ABG O2 Saturation ABG Base Excess ABG Hemoglobin ABG Oxyhemoglobin ABG Sodium ABG Potassium ABG Chloride ABG Glucose Oxyhemoglobin Sodium Potassium Chloride Carbon Dioxide BUN Creatinine Glucose POC Glucose 197 H Lactic Acid Calcium Magnesium Ferritin Total Bilirubin Direct Bilirubin AST ALT Alkaline Phosphatase Lactate Dehydrogenase C-Reactive Protein Total Protein Albumin Triglycerides 244 H Arterial Blood Glucose Arterial Blood Ionized Calcium Urine WBC (Auto) Coronavirus (PCR) SARS-CoV-2 IgG Ab 06/01/20 06/01/20 06/01/20 07:47 11:46 18:15 WBC RBC Hgb Hct MCV MCH MCHC RDW Lymph % (Auto) Lymph # (Auto) Seg Neutrophils % Seg Neuts % (Manual) Lymphocytes % (Manual) Nucleated RBC % Seg Neutrophils # Seg Neutrophils # Man Lymphocytes # (Manual) Monocytes # (Manual) D-Dimer ABG pH POC ABG pCO2 POC ABG pO2 ABG pO2 ABG HCO3 ABG O2 Saturation ABG Base Excess ABG Hemoglobin ABG Oxyhemoglobin ABG Sodium ABG Potassium ABG Chloride ABG Glucose Oxyhemoglobin Sodium Potassium Chloride 95.4 L Carbon Dioxide 35 H BUN 30 H Creatinine 0.5 L Glucose 214 H POC Glucose 181 H 221 H Lactic Acid Calcium Magnesium Ferritin Total Bilirubin Direct Bilirubin AST 54 H ALT 235 H Alkaline Phosphatase Lactate Dehydrogenase C-Reactive Protein Total Protein Albumin 2.9 L Triglycerides Arterial Blood Glucose Arterial Blood Ionized Calcium Urine WBC (Auto) Coronavirus (PCR) SARS-CoV-2 IgG Ab 06/01/20 06/02/20 06/02/20 23:12 04:00 05:31 WBC RBC Hgb Hct MCV MCH MCHC RDW Lymph % (Auto) Lymph # (Auto) Seg Neutrophils % Seg Neuts % (Manual) Lymphocytes % (Manual) Nucleated RBC % Seg Neutrophils # Seg Neutrophils # Man Lymphocytes # (Manual) Monocytes # (Manual) D-Dimer ABG pH 7.465 H POC ABG pCO2 POC ABG pO2 ABG pO2 203.4 H ABG HCO3 41.2 H ABG O2 Saturation 99.3 H ABG Base Excess 15.1 H ABG Hemoglobin 11.5 L ABG Oxyhemoglobin ABG Sodium ABG Potassium ABG Chloride ABG Glucose Oxyhemoglobin Sodium Potassium Chloride Carbon Dioxide BUN Creatinine Glucose POC Glucose 197 H 184 H Lactic Acid Calcium Magnesium Ferritin Total Bilirubin Direct Bilirubin AST ALT Alkaline Phosphatase Lactate Dehydrogenase C-Reactive Protein Total Protein Albumin Triglycerides Arterial Blood Glucose Arterial Blood Ionized Calcium Urine WBC (Auto) Coronavirus (PCR) SARS-CoV-2 IgG Ab 11/25/20 11/25/20 11/25/20 11:49 18:06 23:00 WBC RBC Hgb Hct MCV MCH MCHC RDW Lymph % (Auto) Lymph # (Auto) Seg Neutrophils % Seg Neuts % (Manual) Lymphocytes % (Manual) Nucleated RBC % Seg Neutrophils # Seg Neutrophils # Man Lymphocytes # (Manual) Monocytes # (Manual) D-Dimer ABG pH POC ABG pCO2 POC ABG pO2 ABG pO2 ABG HCO3 ABG O2 Saturation ABG Base Excess ABG Hemoglobin ABG Oxyhemoglobin ABG Sodium ABG Potassium ABG Chloride ABG Glucose Oxyhemoglobin Sodium Potassium Chloride Carbon Dioxide BUN Creatinine Glucose POC Glucose 195 H 177 H 228 H Lactic Acid Calcium Magnesium Ferritin Total Bilirubin Direct Bilirubin AST ALT Alkaline Phosphatase Lactate Dehydrogenase C-Reactive Protein Total Protein Albumin Triglycerides Arterial Blood Glucose Arterial Blood Ionized Calcium Urine WBC (Auto) Coronavirus (PCR) SARS-CoV-2 IgG Ab 06/03/20 06/03/20 06/03/20 03:58 05:19 12:21 WBC RBC Hgb Hct MCV MCH MCHC RDW Lymph % (Auto) Lymph # (Auto) Seg Neutrophils % Seg Neuts % (Manual) Lymphocytes % (Manual) Nucleated RBC % Seg Neutrophils # Seg Neutrophils # Man Lymphocytes # (Manual) Monocytes # (Manual) D-Dimer ABG pH POC ABG pCO2 POC ABG pO2 ABG pO2 171.0 H ABG HCO3 42.8 H ABG O2 Saturation ABG Base Excess 15.6 H ABG Hemoglobin 12.3 L ABG Oxyhemoglobin ABG Sodium ABG Potassium ABG Chloride ABG Glucose Oxyhemoglobin Sodium Potassium Chloride Carbon Dioxide BUN Creatinine Glucose POC Glucose 122 H 207 H Lactic Acid Calcium Magnesium Ferritin Total Bilirubin Direct Bilirubin AST ALT Alkaline Phosphatase Lactate Dehydrogenase C-Reactive Protein Total Protein Albumin Triglycerides Arterial Blood Glucose Arterial Blood Ionized Calcium Urine WBC (Auto) Coronavirus (PCR) SARS-CoV-2 IgG Ab 06/03/20 06/03/20 06/04/20 17:27 23:50 03:55 WBC RBC Hgb Hct MCV MCH MCHC RDW Lymph % (Auto) Lymph # (Auto) Seg Neutrophils % Seg Neuts % (Manual) Lymphocytes % (Manual) Nucleated RBC % Seg Neutrophils # Seg Neutrophils # Man Lymphocytes # (Manual) Monocytes # (Manual) D-Dimer ABG pH POC ABG pCO2 POC ABG pO2 ABG pO2 117.2 H ABG HCO3 42.4 H ABG O2 Saturation ABG Base Excess 15.3 H ABG Hemoglobin 10.5 L ABG Oxyhemoglobin ABG Sodium ABG Potassium ABG Chloride ABG Glucose Oxyhemoglobin Sodium Potassium Chloride Carbon Dioxide BUN Creatinine Glucose POC Glucose 157 H 214 H Lactic Acid Calcium Magnesium Ferritin Total Bilirubin Direct Bilirubin AST ALT Alkaline Phosphatase Lactate Dehydrogenase C-Reactive Protein Total Protein Albumin Triglycerides Arterial Blood Glucose Arterial Blood Ionized Calcium Urine WBC (Auto) Coronavirus (PCR) SARS-CoV-2 IgG Ab 06/04/20 06/04/20 06/04/20 05:49 11:41 17:30 WBC RBC Hgb Hct MCV MCH MCHC RDW Lymph % (Auto) Lymph # (Auto) Seg Neutrophils % Seg Neuts % (Manual) Lymphocytes % (Manual) Nucleated RBC % Seg Neutrophils # Seg Neutrophils # Man Lymphocytes # (Manual) Monocytes # (Manual) D-Dimer ABG pH POC ABG pCO2 POC ABG pO2 ABG pO2 ABG HCO3 ABG O2 Saturation ABG Base Excess ABG Hemoglobin ABG Oxyhemoglobin ABG Sodium ABG Potassium ABG Chloride ABG Glucose Oxyhemoglobin Sodium Potassium Chloride Carbon Dioxide BUN Creatinine Glucose POC Glucose 149 H 233 H 156 H Lactic Acid Calcium Magnesium Ferritin Total Bilirubin Direct Bilirubin AST ALT Alkaline Phosphatase Lactate Dehydrogenase C-Reactive Protein Total Protein Albumin Triglycerides Arterial Blood Glucose Arterial Blood Ionized Calcium Urine WBC (Auto) Coronavirus (PCR) SARS-CoV-2 IgG Ab 06/04/20 06/04/20 06/04/20 19:01 20:53 23:41 WBC RBC 3.18 L Hgb 10.8 L Hct 31.8 L MCV 100 H MCH 34 H MCHC RDW Lymph % (Auto) Lymph # (Auto) Seg Neutrophils % Seg Neuts % (Manual) 86.0 H Lymphocytes % (Manual) 10.0 L Nucleated RBC % 1.0 H Seg Neutrophils # Seg Neutrophils # Man 8.5 H Lymphocytes # (Manual) 1.0 L Monocytes # (Manual) D-Dimer ABG pH POC ABG pCO2 POC ABG pO2 ABG pO2 ABG HCO3 ABG O2 Saturation ABG Base Excess ABG Hemoglobin ABG Oxyhemoglobin ABG Sodium ABG Potassium ABG Chloride ABG Glucose Oxyhemoglobin Sodium Potassium 3.4 L D Chloride 96.5 L Carbon Dioxide 41 H* BUN 27 H Creatinine 0.5 L Glucose 173 H POC Glucose 217 H Lactic Acid Calcium Magnesium Ferritin Total Bilirubin Direct Bilirubin AST ALT Alkaline Phosphatase Lactate Dehydrogenase C-Reactive Protein Total Protein Albumin Triglycerides Arterial Blood Glucose Arterial Blood Ionized Calcium Urine WBC (Auto) Coronavirus (PCR) SARS-CoV-2 IgG Ab 06/05/20 06/05/20 06/05/20 06:05 11:54 12:35 WBC RBC Hgb Hct MCV MCH MCHC RDW Lymph % (Auto) Lymph # (Auto) Seg Neutrophils % Seg Neuts % (Manual) Lymphocytes % (Manual) Nucleated RBC % Seg Neutrophils # Seg Neutrophils # Man Lymphocytes # (Manual) Monocytes # (Manual) D-Dimer ABG pH POC ABG pCO2 POC ABG pO2 ABG pO2 127.9 H ABG HCO3 41.1 H ABG O2 Saturation ABG Base Excess 13.0 H ABG Hemoglobin 13.4 L ABG Oxyhemoglobin ABG Sodium ABG Potassium ABG Chloride ABG Glucose Oxyhemoglobin Sodium Potassium Chloride Carbon Dioxide BUN Creatinine Glucose POC Glucose 137 H 211 H Lactic Acid Calcium Magnesium Ferritin Total Bilirubin Direct Bilirubin AST ALT Alkaline Phosphatase Lactate Dehydrogenase C-Reactive Protein Total Protein Albumin Triglycerides Arterial Blood Glucose Arterial Blood Ionized Calcium Urine WBC (Auto) Coronavirus (PCR) SARS-CoV-2 IgG Ab 06/05/20 06/05/20 06/06/20 17:03 23:49 04:42 WBC RBC Hgb Hct MCV MCH MCHC RDW Lymph % (Auto) Lymph # (Auto) Seg Neutrophils % Seg Neuts % (Manual) Lymphocytes % (Manual) Nucleated RBC % Seg Neutrophils # Seg Neutrophils # Man Lymphocytes # (Manual) Monocytes # (Manual) D-Dimer ABG pH POC ABG pCO2 56.1 H POC ABG pO2 52.5 L ABG pO2 ABG HCO3 ABG O2 Saturation ABG Base Excess ABG Hemoglobin 11.7 L ABG Oxyhemoglobin ABG Sodium ABG Potassium 3.3 L ABG Chloride 95.0 L ABG Glucose 156 H Oxyhemoglobin Sodium Potassium Chloride Carbon Dioxide BUN Creatinine Glucose POC Glucose 159 H 194 H Lactic Acid Calcium Magnesium Ferritin Total Bilirubin Direct Bilirubin AST ALT Alkaline Phosphatase Lactate Dehydrogenase C-Reactive Protein Total Protein Albumin Triglycerides Arterial Blood Glucose 156 H Arterial Blood Ionized Calcium Urine WBC (Auto) Coronavirus (PCR) SARS-CoV-2 IgG Ab 06/06/20 06/06/20 06/06/20 05:57 12:06 17:38 WBC RBC Hgb Hct MCV MCH MCHC RDW Lymph % (Auto) Lymph # (Auto) Seg Neutrophils % Seg Neuts % (Manual) Lymphocytes % (Manual) Nucleated RBC % Seg Neutrophils # Seg Neutrophils # Man Lymphocytes # (Manual) Monocytes # (Manual) D-Dimer ABG pH POC ABG pCO2 POC ABG pO2 ABG pO2 ABG HCO3 ABG O2 Saturation ABG Base Excess ABG Hemoglobin ABG Oxyhemoglobin ABG Sodium ABG Potassium ABG Chloride ABG Glucose Oxyhemoglobin Sodium Potassium Chloride Carbon Dioxide BUN Creatinine Glucose POC Glucose 144 H 230 H 162 H Lactic Acid Calcium Magnesium Ferritin Total Bilirubin Direct Bilirubin AST ALT Alkaline Phosphatase Lactate Dehydrogenase C-Reactive Protein Total Protein Albumin Triglycerides Arterial Blood Glucose Arterial Blood Ionized Calcium Urine WBC (Auto) Coronavirus (PCR) SARS-CoV-2 IgG Ab 06/06/20 06/07/20 06/07/20 23:50 04:34 06:03 WBC RBC Hgb Hct MCV MCH MCHC RDW Lymph % (Auto) Lymph # (Auto) Seg Neutrophils % Seg Neuts % (Manual) Lymphocytes % (Manual) Nucleated RBC % Seg Neutrophils # Seg Neutrophils # Man Lymphocytes # (Manual) Monocytes # (Manual) D-Dimer ABG pH 7.511 H POC ABG pCO2 53.5 H POC ABG pO2 114.5 H ABG pO2 ABG HCO3 ABG O2 Saturation ABG Base Excess ABG Hemoglobin 9.4 L ABG Oxyhemoglobin ABG Sodium 134.5 L ABG Potassium ABG Chloride 94.0 L ABG Glucose 186 H Oxyhemoglobin Sodium Potassium Chloride Carbon Dioxide BUN Creatinine Glucose POC Glucose 181 H 155 H Lactic Acid Calcium Magnesium Ferritin Total Bilirubin Direct Bilirubin AST ALT Alkaline Phosphatase Lactate Dehydrogenase C-Reactive Protein Total Protein Albumin Triglycerides Arterial Blood Glucose 186 H Arterial Blood Ionized Calcium 4.5 L Urine WBC (Auto) Coronavirus (PCR) SARS-CoV-2 IgG Ab 06/07/20 06/07/20 06/07/20 13:41 14:58 14:58 WBC RBC 2.72 L Hgb 9.3 L Hct 27.2 L MCV 100 H MCH 34 H MCHC RDW Lymph % (Auto) Lymph # (Auto) Seg Neutrophils % Seg Neuts % (Manual) Lymphocytes % (Manual) Nucleated RBC % Seg Neutrophils # Seg Neutrophils # Man Lymphocytes # (Manual) Monocytes # (Manual) D-Dimer ABG pH POC ABG pCO2 POC ABG pO2 ABG pO2 ABG HCO3 ABG O2 Saturation ABG Base Excess ABG Hemoglobin ABG Oxyhemoglobin ABG Sodium ABG Potassium ABG Chloride ABG Glucose Oxyhemoglobin Sodium Potassium Chloride 93.5 L Carbon Dioxide 39 H BUN 22 H Creatinine 0.4 L Glucose 188 H POC Glucose 201 H Lactic Acid Calcium Magnesium Ferritin Total Bilirubin Direct Bilirubin AST 61 H ALT 273 H Alkaline Phosphatase Lactate Dehydrogenase C-Reactive Protein Total Protein 5.9 L Albumin 2.7 L Triglycerides Arterial Blood Glucose Arterial Blood Ionized Calcium Urine WBC (Auto) Coronavirus (PCR) SARS-CoV-2 IgG Ab 06/07/20 06/08/20 06/08/20 23:18 05:31 12:07 WBC RBC Hgb Hct MCV MCH MCHC RDW Lymph % (Auto) Lymph # (Auto) Seg Neutrophils % Seg Neuts % (Manual) Lymphocytes % (Manual) Nucleated RBC % Seg Neutrophils # Seg Neutrophils # Man Lymphocytes # (Manual) Monocytes # (Manual) D-Dimer ABG pH POC ABG pCO2 POC ABG pO2 ABG pO2 ABG HCO3 ABG O2 Saturation ABG Base Excess ABG Hemoglobin ABG Oxyhemoglobin ABG Sodium ABG Potassium ABG Chloride ABG Glucose Oxyhemoglobin Sodium Potassium Chloride Carbon Dioxide BUN Creatinine Glucose POC Glucose 214 H 129 H 179 H Lactic Acid Calcium Magnesium Ferritin Total Bilirubin Direct Bilirubin AST ALT Alkaline Phosphatase Lactate Dehydrogenase C-Reactive Protein Total Protein Albumin Triglycerides Arterial Blood Glucose Arterial Blood Ionized Calcium Urine WBC (Auto) Coronavirus (PCR) SARS-CoV-2 IgG Ab 06/08/20 06/08/20 06/09/20 18:18 23:35 05:42 WBC RBC Hgb Hct MCV MCH MCHC RDW Lymph % (Auto) Lymph # (Auto) Seg Neutrophils % Seg Neuts % (Manual) Lymphocytes % (Manual) Nucleated RBC % Seg Neutrophils # Seg Neutrophils # Man Lymphocytes # (Manual) Monocytes # (Manual) D-Dimer ABG pH POC ABG pCO2 POC ABG pO2 ABG pO2 ABG HCO3 ABG O2 Saturation ABG Base Excess ABG Hemoglobin ABG Oxyhemoglobin ABG Sodium ABG Potassium ABG Chloride ABG Glucose Oxyhemoglobin Sodium Potassium Chloride Carbon Dioxide BUN Creatinine Glucose POC Glucose 172 H 177 H 137 H Lactic Acid Calcium Magnesium Ferritin Total Bilirubin Direct Bilirubin AST ALT Alkaline Phosphatase Lactate Dehydrogenase C-Reactive Protein Total Protein Albumin Triglycerides Arterial Blood Glucose Arterial Blood Ionized Calcium Urine WBC (Auto) Coronavirus (PCR) SARS-CoV-2 IgG Ab 06/09/20 06/09/20 06/09/20 06:20 07:55 07:55 WBC 12.4 H RBC 3.26 L Hgb 11.1 L Hct 33.4 L D MCV 102 H MCH 34 H MCHC RDW Lymph % (Auto) Lymph # (Auto) Seg Neutrophils % Seg Neuts % (Manual) Lymphocytes % (Manual) Nucleated RBC % Seg Neutrophils # Seg Neutrophils # Man Lymphocytes # (Manual) Monocytes # (Manual) D-Dimer ABG pH 7.466 H POC ABG pCO2 50.7 H POC ABG pO2 53.0 L ABG pO2 ABG HCO3 ABG O2 Saturation ABG Base Excess ABG Hemoglobin ABG Oxyhemoglobin ABG Sodium ABG Potassium 2.9 L ABG Chloride 93.0 L ABG Glucose 138 H Oxyhemoglobin Sodium Potassium 3.0 L Chloride 92.3 L Carbon Dioxide 37 H BUN 21 H Creatinine 0.6 L Glucose 120 H POC Glucose Lactic Acid Calcium Magnesium Ferritin Total Bilirubin Direct Bilirubin AST ALT Alkaline Phosphatase Lactate Dehydrogenase C-Reactive Protein Total Protein Albumin Triglycerides Arterial Blood Glucose 138 H Arterial Blood Ionized Calcium 4.5 L Urine WBC (Auto) Coronavirus (PCR) SARS-CoV-2 IgG Ab 06/09/20 06/09/20 06/10/20 11:22 18:32 04:46 WBC RBC Hgb Hct MCV MCH MCHC RDW Lymph % (Auto) Lymph # (Auto) Seg Neutrophils % Seg Neuts % (Manual) Lymphocytes % (Manual) Nucleated RBC % Seg Neutrophils # Seg Neutrophils # Man Lymphocytes # (Manual) Monocytes # (Manual) D-Dimer ABG pH 7.501 H POC ABG pCO2 POC ABG pO2 126.5 H ABG pO2 ABG HCO3 ABG O2 Saturation ABG Base Excess ABG Hemoglobin 10.3 L ABG Oxyhemoglobin ABG Sodium ABG Potassium ABG Chloride ABG Glucose 220 H Oxyhemoglobin Sodium Potassium Chloride Carbon Dioxide BUN Creatinine Glucose POC Glucose 117 H 121 H Lactic Acid Calcium Magnesium Ferritin Total Bilirubin Direct Bilirubin AST ALT Alkaline Phosphatase Lactate Dehydrogenase C-Reactive Protein Total Protein Albumin Triglycerides Arterial Blood Glucose 220 H Arterial Blood Ionized Calcium Urine WBC (Auto) Coronavirus (PCR) SARS-CoV-2 IgG Ab 06/10/20 06/10/20 06/10/20 05:30 09:38 12:03 WBC RBC Hgb Hct MCV MCH MCHC RDW Lymph % (Auto) Lymph # (Auto) Seg Neutrophils % Seg Neuts % (Manual) Lymphocytes % (Manual) Nucleated RBC % Seg Neutrophils # Seg Neutrophils # Man Lymphocytes # (Manual) Monocytes # (Manual) D-Dimer ABG pH POC ABG pCO2 POC ABG pO2 ABG pO2 ABG HCO3 ABG O2 Saturation ABG Base Excess ABG Hemoglobin ABG Oxyhemoglobin ABG Sodium ABG Potassium ABG Chloride ABG Glucose Oxyhemoglobin Sodium Potassium Chloride Carbon Dioxide BUN Creatinine Glucose POC Glucose 181 H 204 H Lactic Acid Calcium Magnesium Ferritin Total Bilirubin Direct Bilirubin AST ALT Alkaline Phosphatase Lactate Dehydrogenase C-Reactive Protein Total Protein Albumin Triglycerides 738 H Arterial Blood Glucose Arterial Blood Ionized Calcium Urine WBC (Auto) Coronavirus (PCR) SARS-CoV-2 IgG Ab 06/10/20 06/11/20 06/11/20 17:17 00:04 04:38 WBC RBC Hgb Hct MCV MCH MCHC RDW Lymph % (Auto) Lymph # (Auto) Seg Neutrophils % Seg Neuts % (Manual) Lymphocytes % (Manual) Nucleated RBC % Seg Neutrophils # Seg Neutrophils # Man Lymphocytes # (Manual) Monocytes # (Manual) D-Dimer ABG pH 7.479 H POC ABG pCO2 POC ABG pO2 76.7 L ABG pO2 ABG HCO3 ABG O2 Saturation ABG Base Excess ABG Hemoglobin 9.8 L ABG Oxyhemoglobin ABG Sodium 135.8 L ABG Potassium ABG Chloride ABG Glucose 238 H Oxyhemoglobin Sodium Potassium Chloride Carbon Dioxide BUN Creatinine Glucose POC Glucose 156 H 178 H Lactic Acid Calcium Magnesium Ferritin Total Bilirubin Direct Bilirubin AST ALT Alkaline Phosphatase Lactate Dehydrogenase C-Reactive Protein Total Protein Albumin Triglycerides Arterial Blood Glucose 238 H Arterial Blood Ionized Calcium Urine WBC (Auto) Coronavirus (PCR) SARS-CoV-2 IgG Ab 06/11/20 06/11/20 06/11/20 05:21 06:52 11:50 WBC RBC Hgb Hct MCV MCH MCHC RDW Lymph % (Auto) Lymph # (Auto) Seg Neutrophils % Seg Neuts % (Manual) Lymphocytes % (Manual) Nucleated RBC % Seg Neutrophils # Seg Neutrophils # Man Lymphocytes # (Manual) Monocytes # (Manual) D-Dimer ABG pH POC ABG pCO2 POC ABG pO2 ABG pO2 ABG HCO3 ABG O2 Saturation ABG Base Excess ABG Hemoglobin ABG Oxyhemoglobin ABG Sodium ABG Potassium ABG Chloride ABG Glucose Oxyhemoglobin Sodium Potassium Chloride Carbon Dioxide BUN Creatinine Glucose POC Glucose 215 H 187 H Lactic Acid Calcium Magnesium Ferritin Total Bilirubin Direct Bilirubin AST ALT Alkaline Phosphatase Lactate Dehydrogenase C-Reactive Protein Total Protein Albumin Triglycerides 331 H Arterial Blood Glucose Arterial Blood Ionized Calcium Urine WBC (Auto) Coronavirus (PCR) SARS-CoV-2 IgG Ab 06/11/20 06/11/20 06/12/20 17:49 23:35 04:52 WBC RBC Hgb Hct MCV MCH MCHC RDW Lymph % (Auto) Lymph # (Auto) Seg Neutrophils % Seg Neuts % (Manual) Lymphocytes % (Manual) Nucleated RBC % Seg Neutrophils # Seg Neutrophils # Man Lymphocytes # (Manual) Monocytes # (Manual) D-Dimer ABG pH 7.486 H POC ABG pCO2 POC ABG pO2 ABG pO2 ABG HCO3 ABG O2 Saturation ABG Base Excess ABG Hemoglobin 9.4 L ABG Oxyhemoglobin ABG Sodium ABG Potassium 3.2 L ABG Chloride ABG Glucose 209 H Oxyhemoglobin Sodium Potassium Chloride Carbon Dioxide BUN Creatinine Glucose POC Glucose 211 H 200 H Lactic Acid Calcium Magnesium Ferritin Total Bilirubin Direct Bilirubin AST ALT Alkaline Phosphatase Lactate Dehydrogenase C-Reactive Protein Total Protein Albumin Triglycerides Arterial Blood Glucose 209 H Arterial Blood Ionized Calcium Urine WBC (Auto) Coronavirus (PCR) SARS-CoV-2 IgG Ab 06/12/20 06/12/20 06/12/20 05:13 11:47 18:33 WBC RBC Hgb Hct MCV MCH MCHC RDW Lymph % (Auto) Lymph # (Auto) Seg Neutrophils % Seg Neuts % (Manual) Lymphocytes % (Manual) Nucleated RBC % Seg Neutrophils # Seg Neutrophils # Man Lymphocytes # (Manual) Monocytes # (Manual) D-Dimer ABG pH POC ABG pCO2 POC ABG pO2 ABG pO2 ABG HCO3 ABG O2 Saturation ABG Base Excess ABG Hemoglobin ABG Oxyhemoglobin ABG Sodium ABG Potassium ABG Chloride ABG Glucose Oxyhemoglobin Sodium Potassium Chloride Carbon Dioxide BUN Creatinine Glucose POC Glucose 174 H 214 H 194 H Lactic Acid Calcium Magnesium Ferritin Total Bilirubin Direct Bilirubin AST ALT Alkaline Phosphatase Lactate Dehydrogenase C-Reactive Protein Total Protein Albumin Triglycerides Arterial Blood Glucose Arterial Blood Ionized Calcium Urine WBC (Auto) Coronavirus (PCR) SARS-CoV-2 IgG Ab 06/12/20 06/13/20 06/13/20 23:49 05:41 12:30 WBC RBC Hgb Hct MCV MCH MCHC RDW Lymph % (Auto) Lymph # (Auto) Seg Neutrophils % Seg Neuts % (Manual) Lymphocytes % (Manual) Nucleated RBC % Seg Neutrophils # Seg Neutrophils # Man Lymphocytes # (Manual) Monocytes # (Manual) D-Dimer ABG pH POC ABG pCO2 POC ABG pO2 ABG pO2 ABG HCO3 ABG O2 Saturation ABG Base Excess ABG Hemoglobin ABG Oxyhemoglobin ABG Sodium ABG Potassium ABG Chloride ABG Glucose Oxyhemoglobin Sodium Potassium Chloride Carbon Dioxide BUN Creatinine Glucose POC Glucose 160 H 150 H 181 H Lactic Acid Calcium Magnesium Ferritin Total Bilirubin Direct Bilirubin AST ALT Alkaline Phosphatase Lactate Dehydrogenase C-Reactive Protein Total Protein Albumin Triglycerides Arterial Blood Glucose Arterial Blood Ionized Calcium Urine WBC (Auto) Coronavirus (PCR) SARS-CoV-2 IgG Ab 06/13/20 06/13/20 06/13/20 14:14 17:48 23:27 WBC 12.8 H RBC 2.33 L Hgb 8.0 L Hct 23.3 L MCV 100 H MCH 34 H MCHC RDW 15.7 H Lymph % (Auto) Lymph # (Auto) Seg Neutrophils % Seg Neuts % (Manual) 85.0 H Lymphocytes % (Manual) 10.0 L Nucleated RBC % Seg Neutrophils # Seg Neutrophils # Man 10.9 H Lymphocytes # (Manual) Monocytes # (Manual) D-Dimer ABG pH POC ABG pCO2 POC ABG pO2 ABG pO2 ABG HCO3 ABG O2 Saturation ABG Base Excess ABG Hemoglobin ABG Oxyhemoglobin ABG Sodium ABG Potassium ABG Chloride ABG Glucose Oxyhemoglobin Sodium Potassium Chloride Carbon Dioxide BUN Creatinine Glucose POC Glucose 173 H 154 H Lactic Acid Calcium Magnesium Ferritin Total Bilirubin Direct Bilirubin AST ALT Alkaline Phosphatase Lactate Dehydrogenase C-Reactive Protein Total Protein Albumin Triglycerides Arterial Blood Glucose Arterial Blood Ionized Calcium Urine WBC (Auto) Coronavirus (PCR) SARS-CoV-2 IgG Ab 06/14/20 06/14/20 06/14/20 03:58 05:21 07:15 WBC 26.2 H RBC 2.97 L Hgb 9.7 L Hct 29.9 L D MCV 101 H MCH 33 H MCHC RDW 15.3 H Lymph % (Auto) Lymph # (Auto) Seg Neutrophils % Seg Neuts % (Manual) 79.0 H Lymphocytes % (Manual) 5.0 L Nucleated RBC % 3.0 H Seg Neutrophils # Seg Neutrophils # Man 20.7 H Lymphocytes # (Manual) Monocytes # (Manual) 1.3 H D-Dimer ABG pH POC ABG pCO2 51.5 H POC ABG pO2 70.0 L ABG pO2 ABG HCO3 ABG O2 Saturation ABG Base Excess ABG Hemoglobin 10.1 L ABG Oxyhemoglobin ABG Sodium 131.5 L ABG Potassium 3.1 L ABG Chloride 93.0 L ABG Glucose 188 H Oxyhemoglobin Sodium Potassium Chloride Carbon Dioxide BUN Creatinine Glucose POC Glucose 147 H Lactic Acid Calcium Magnesium Ferritin Total Bilirubin Direct Bilirubin AST ALT Alkaline Phosphatase Lactate Dehydrogenase C-Reactive Protein Total Protein Albumin Triglycerides Arterial Blood Glucose 188 H Arterial Blood Ionized Calcium Urine WBC (Auto) Coronavirus (PCR) SARS-CoV-2 IgG Ab 06/14/20 06/14/20 06/14/20 07:15 11:30 11:50 WBC RBC Hgb Hct MCV MCH MCHC RDW Lymph % (Auto) Lymph # (Auto) Seg Neutrophils % Seg Neuts % (Manual) Lymphocytes % (Manual) Nucleated RBC % Seg Neutrophils # Seg Neutrophils # Man Lymphocytes # (Manual) Monocytes # (Manual) D-Dimer ABG pH POC ABG pCO2 POC ABG pO2 ABG pO2 ABG HCO3 ABG O2 Saturation ABG Base Excess ABG Hemoglobin ABG Oxyhemoglobin ABG Sodium ABG Potassium ABG Chloride ABG Glucose Oxyhemoglobin Sodium 135 L Potassium 3.5 L Chloride 90.4 L Carbon Dioxide 38 H BUN Creatinine 0.5 L Glucose 190 H POC Glucose 176 H Lactic Acid Calcium Magnesium Ferritin 1496.0 H Total Bilirubin Direct Bilirubin AST ALT 81 H Alkaline Phosphatase Lactate Dehydrogenase C-Reactive Protein Total Protein Albumin 2.9 L Triglycerides Arterial Blood Glucose Arterial Blood Ionized Calcium Urine WBC (Auto) Coronavirus (PCR) SARS-CoV-2 IgG Ab 06/14/20 06/15/20 06/15/20 23:31 04:00 05:00 WBC RBC Hgb Hct MCV MCH MCHC RDW Lymph % (Auto) Lymph # (Auto) Seg Neutrophils % Seg Neuts % (Manual) Lymphocytes % (Manual) Nucleated RBC % Seg Neutrophils # Seg Neutrophils # Man Lymphocytes # (Manual) Monocytes # (Manual) D-Dimer ABG pH POC ABG pCO2 POC ABG pO2 ABG pO2 ABG HCO3 ABG O2 Saturation ABG Base Excess ABG Hemoglobin ABG Oxyhemoglobin ABG Sodium ABG Potassium ABG Chloride ABG Glucose Oxyhemoglobin Sodium 133 L Potassium Chloride 91.1 L Carbon Dioxide 34 H BUN Creatinine 0.4 L Glucose 159 H POC Glucose 200 H Lactic Acid Calcium Magnesium Ferritin Total Bilirubin 2.00 H Direct Bilirubin AST 47 H ALT 77 H Alkaline Phosphatase Lactate Dehydrogenase C-Reactive Protein Total Protein Albumin 2.6 L Triglycerides 152 H Arterial Blood Glucose Arterial Blood Ionized Calcium Urine WBC (Auto) Coronavirus (PCR) SARS-CoV-2 IgG Ab 06/15/20 06/15/20 06/15/20 05:35 06:27 11:38 WBC RBC Hgb Hct MCV MCH MCHC RDW Lymph % (Auto) Lymph # (Auto) Seg Neutrophils % Seg Neuts % (Manual) Lymphocytes % (Manual) Nucleated RBC % Seg Neutrophils # Seg Neutrophils # Man Lymphocytes # (Manual) Monocytes # (Manual) D-Dimer ABG pH POC ABG pCO2 61.0 H POC ABG pO2 67.9 L ABG pO2 ABG HCO3 ABG O2 Saturation ABG Base Excess ABG Hemoglobin 10.4 L ABG Oxyhemoglobin ABG Sodium 132.7 L ABG Potassium 3.3 L ABG Chloride 92.0 L ABG Glucose 158 H Oxyhemoglobin Sodium Potassium Chloride Carbon Dioxide BUN Creatinine Glucose POC Glucose 148 H 197 H Lactic Acid Calcium Magnesium Ferritin Total Bilirubin Direct Bilirubin AST ALT Alkaline Phosphatase Lactate Dehydrogenase C-Reactive Protein Total Protein Albumin Triglycerides Arterial Blood Glucose 158 H Arterial Blood Ionized Calcium Urine WBC (Auto) Coronavirus (PCR) SARS-CoV-2 IgG Ab 06/15/20 06/15/20 06/16/20 17:29 Unknown 00:01 WBC 20.7 H RBC 2.57 L Hgb 8.9 L Hct 25.8 L MCV 101 H MCH 35 H MCHC 35 H RDW 16.0 H Lymph % (Auto) Lymph # (Auto) Seg Neutrophils % Seg Neuts % (Manual) 83.0 H Lymphocytes % (Manual) 8.0 L Nucleated RBC % Seg Neutrophils # Seg Neutrophils # Man 17.2 H Lymphocytes # (Manual) Monocytes # (Manual) 1.2 H D-Dimer ABG pH POC ABG pCO2 POC ABG pO2 ABG pO2 ABG HCO3 ABG O2 Saturation ABG Base Excess ABG Hemoglobin ABG Oxyhemoglobin ABG Sodium ABG Potassium ABG Chloride ABG Glucose Oxyhemoglobin Sodium Potassium Chloride Carbon Dioxide BUN Creatinine Glucose POC Glucose 231 H 257 H Lactic Acid Calcium Magnesium Ferritin Total Bilirubin Direct Bilirubin AST ALT Alkaline Phosphatase Lactate Dehydrogenase C-Reactive Protein Total Protein Albumin Triglycerides Arterial Blood Glucose Arterial Blood Ionized Calcium Urine WBC (Auto) Coronavirus (PCR) SARS-CoV-2 IgG Ab 06/16/20 06/16/20 06/16/20 04:00 04:00 05:22 WBC 13.8 H RBC 2.03 L Hgb 7.6 L Hct 20.7 L MCV 102 H MCH 37 H MCHC 37 H RDW 16.2 H Lymph % (Auto) 4.4 L Lymph # (Auto) 0.6 L Seg Neutrophils % Seg Neuts % (Manual) Lymphocytes % (Manual) Nucleated RBC % Seg Neutrophils # 12.7 H Seg Neutrophils # Man Lymphocytes # (Manual) Monocytes # (Manual) D-Dimer ABG pH POC ABG pCO2 POC ABG pO2 ABG pO2 ABG HCO3 ABG O2 Saturation ABG Base Excess ABG Hemoglobin ABG Oxyhemoglobin ABG Sodium ABG Potassium ABG Chloride ABG Glucose Oxyhemoglobin Sodium 130 L Potassium Chloride 88.9 L Carbon Dioxide 36 H BUN Creatinine 0.3 L Glucose 276 H POC Glucose 250 H Lactic Acid Calcium Magnesium Ferritin Total Bilirubin Direct Bilirubin AST ALT Alkaline Phosphatase Lactate Dehydrogenase C-Reactive Protein Total Protein Albumin Triglycerides Arterial Blood Glucose Arterial Blood Ionized Calcium Urine WBC (Auto) Coronavirus (PCR) SARS-CoV-2 IgG Ab 06/16/20 06/16/20 06/17/20 12:44 18:18 00:39 WBC RBC Hgb Hct MCV MCH MCHC RDW Lymph % (Auto) Lymph # (Auto) Seg Neutrophils % Seg Neuts % (Manual) Lymphocytes % (Manual) Nucleated RBC % Seg Neutrophils # Seg Neutrophils # Man Lymphocytes # (Manual) Monocytes # (Manual) D-Dimer ABG pH POC ABG pCO2 POC ABG pO2 ABG pO2 ABG HCO3 ABG O2 Saturation ABG Base Excess ABG Hemoglobin ABG Oxyhemoglobin ABG Sodium ABG Potassium ABG Chloride ABG Glucose Oxyhemoglobin Sodium Potassium Chloride Carbon Dioxide BUN Creatinine Glucose POC Glucose 279 H 239 H 247 H Lactic Acid Calcium Magnesium Ferritin Total Bilirubin Direct Bilirubin AST ALT Alkaline Phosphatase Lactate Dehydrogenase C-Reactive Protein Total Protein Albumin Triglycerides Arterial Blood Glucose Arterial Blood Ionized Calcium Urine WBC (Auto) Coronavirus (PCR) SARS-CoV-2 IgG Ab 06/17/20 06/17/20 06/17/20 03:40 04:08 10:54 WBC RBC Hgb Hct MCV MCH MCHC RDW Lymph % (Auto) Lymph # (Auto) Seg Neutrophils % Seg Neuts % (Manual) Lymphocytes % (Manual) Nucleated RBC % Seg Neutrophils # Seg Neutrophils # Man Lymphocytes # (Manual) Monocytes # (Manual) D-Dimer ABG pH POC ABG pCO2 65.7 H POC ABG pO2 ABG pO2 ABG HCO3 ABG O2 Saturation ABG Base Excess ABG Hemoglobin 11.9 L ABG Oxyhemoglobin ABG Sodium ABG Potassium ABG Chloride 93.0 L ABG Glucose 244 H Oxyhemoglobin Sodium Potassium Chloride Carbon Dioxide BUN Creatinine Glucose POC Glucose 221 H 248 H Lactic Acid Calcium Magnesium Ferritin Total Bilirubin Direct Bilirubin AST ALT Alkaline Phosphatase Lactate Dehydrogenase C-Reactive Protein Total Protein Albumin Triglycerides Arterial Blood Glucose 244 H Arterial Blood Ionized Calcium Urine WBC (Auto) Coronavirus (PCR) SARS-CoV-2 IgG Ab 06/17/20 06/17/20 06/17/20 17:47 23:11 23:29 WBC RBC Hgb Hct MCV MCH MCHC RDW Lymph % (Auto) Lymph # (Auto) Seg Neutrophils % Seg Neuts % (Manual) Lymphocytes % (Manual) Nucleated RBC % Seg Neutrophils # Seg Neutrophils # Man Lymphocytes # (Manual) Monocytes # (Manual) D-Dimer ABG pH POC ABG pCO2 85.2 H POC ABG pO2 48.4 L ABG pO2 ABG HCO3 ABG O2 Saturation ABG Base Excess ABG Hemoglobin 8.0 L ABG Oxyhemoglobin ABG Sodium ABG Potassium ABG Chloride 95.0 L ABG Glucose 292 H Oxyhemoglobin Sodium Potassium Chloride Carbon Dioxide BUN Creatinine Glucose POC Glucose 245 H 252 H Lactic Acid Calcium Magnesium Ferritin Total Bilirubin Direct Bilirubin AST ALT Alkaline Phosphatase Lactate Dehydrogenase C-Reactive Protein Total Protein Albumin Triglycerides Arterial Blood Glucose 292 H Arterial Blood Ionized Calcium Urine WBC (Auto) Coronavirus (PCR) SARS-CoV-2 IgG Ab 06/18/20 06/18/20 06/18/20 03:14 05:34 11:47 WBC RBC Hgb Hct MCV MCH MCHC RDW Lymph % (Auto) Lymph # (Auto) Seg Neutrophils % Seg Neuts % (Manual) Lymphocytes % (Manual) Nucleated RBC % Seg Neutrophils # Seg Neutrophils # Man Lymphocytes # (Manual) Monocytes # (Manual) D-Dimer ABG pH POC ABG pCO2 65.4 H POC ABG pO2 160.7 H ABG pO2 ABG HCO3 ABG O2 Saturation ABG Base Excess ABG Hemoglobin 7.8 L ABG Oxyhemoglobin ABG Sodium ABG Potassium ABG Chloride 95.0 L ABG Glucose 251 H Oxyhemoglobin Sodium Potassium Chloride Carbon Dioxide BUN Creatinine Glucose POC Glucose 243 H 263 H Lactic Acid Calcium Magnesium Ferritin Total Bilirubin Direct Bilirubin AST ALT Alkaline Phosphatase Lactate Dehydrogenase C-Reactive Protein Total Protein Albumin Triglycerides Arterial Blood Glucose 251 H Arterial Blood Ionized Calcium Urine WBC (Auto) Coronavirus (PCR) SARS-CoV-2 IgG Ab 06/18/20 06/18/20 06/19/20 17:31 23:33 04:32 WBC RBC Hgb Hct MCV MCH MCHC RDW Lymph % (Auto) Lymph # (Auto) Seg Neutrophils % Seg Neuts % (Manual) Lymphocytes % (Manual) Nucleated RBC % Seg Neutrophils # Seg Neutrophils # Man Lymphocytes # (Manual) Monocytes # (Manual) D-Dimer ABG pH POC ABG pCO2 83.1 H POC ABG pO2 65.8 L ABG pO2 ABG HCO3 ABG O2 Saturation ABG Base Excess ABG Hemoglobin 8.9 L ABG Oxyhemoglobin ABG Sodium ABG Potassium ABG Chloride 96.0 L ABG Glucose 297 H Oxyhemoglobin Sodium Potassium Chloride Carbon Dioxide BUN Creatinine Glucose POC Glucose 286 H 238 H Lactic Acid Calcium Magnesium Ferritin Total Bilirubin Direct Bilirubin AST ALT Alkaline Phosphatase Lactate Dehydrogenase C-Reactive Protein Total Protein Albumin Triglycerides Arterial Blood Glucose 297 H Arterial Blood Ionized Calcium Urine WBC (Auto) Coronavirus (PCR) SARS-CoV-2 IgG Ab 06/19/20 06/19/20 06/19/20 05:55 11:20 17:12 WBC RBC Hgb Hct MCV MCH MCHC RDW Lymph % (Auto) Lymph # (Auto) Seg Neutrophils % Seg Neuts % (Manual) Lymphocytes % (Manual) Nucleated RBC % Seg Neutrophils # Seg Neutrophils # Man Lymphocytes # (Manual) Monocytes # (Manual) D-Dimer ABG pH POC ABG pCO2 POC ABG pO2 ABG pO2 ABG HCO3 ABG O2 Saturation ABG Base Excess ABG Hemoglobin ABG Oxyhemoglobin ABG Sodium ABG Potassium ABG Chloride ABG Glucose Oxyhemoglobin Sodium Potassium Chloride Carbon Dioxide BUN Creatinine Glucose POC Glucose 274 H 282 H 298 H Lactic Acid Calcium Magnesium Ferritin Total Bilirubin Direct Bilirubin AST ALT Alkaline Phosphatase Lactate Dehydrogenase C-Reactive Protein Total Protein Albumin Triglycerides Arterial Blood Glucose Arterial Blood Ionized Calcium Urine WBC (Auto) Coronavirus (PCR) SARS-CoV-2 IgG Ab 06/19/20 06/20/20 06/20/20 23:08 03:33 06:01 WBC RBC Hgb Hct MCV MCH MCHC RDW Lymph % (Auto) Lymph # (Auto) Seg Neutrophils % Seg Neuts % (Manual) Lymphocytes % (Manual) Nucleated RBC % Seg Neutrophils # Seg Neutrophils # Man Lymphocytes # (Manual) Monocytes # (Manual) D-Dimer ABG pH POC ABG pCO2 POC ABG pO2 ABG pO2 69.9 L ABG HCO3 50.8 H ABG O2 Saturation ABG Base Excess 24.2 H ABG Hemoglobin 5.8 L ABG Oxyhemoglobin ABG Sodium ABG Potassium ABG Chloride ABG Glucose Oxyhemoglobin Sodium Potassium Chloride Carbon Dioxide BUN Creatinine Glucose POC Glucose 293 H 182 H Lactic Acid Calcium Magnesium Ferritin Total Bilirubin Direct Bilirubin AST ALT Alkaline Phosphatase Lactate Dehydrogenase C-Reactive Protein Total Protein Albumin Triglycerides Arterial Blood Glucose Arterial Blood Ionized Calcium Urine WBC (Auto) Coronavirus (PCR) SARS-CoV-2 IgG Ab 06/20/20 06/20/20 06/20/20 11:47 17:46 23:37 WBC RBC Hgb Hct MCV MCH MCHC RDW Lymph % (Auto) Lymph # (Auto) Seg Neutrophils % Seg Neuts % (Manual) Lymphocytes % (Manual) Nucleated RBC % Seg Neutrophils # Seg Neutrophils # Man Lymphocytes # (Manual) Monocytes # (Manual) D-Dimer ABG pH POC ABG pCO2 POC ABG pO2 ABG pO2 ABG HCO3 ABG O2 Saturation ABG Base Excess ABG Hemoglobin ABG Oxyhemoglobin ABG Sodium ABG Potassium ABG Chloride ABG Glucose Oxyhemoglobin Sodium Potassium Chloride Carbon Dioxide BUN Creatinine Glucose POC Glucose 170 H 215 H 256 H Lactic Acid Calcium Magnesium Ferritin Total Bilirubin Direct Bilirubin AST ALT Alkaline Phosphatase Lactate Dehydrogenase C-Reactive Protein Total Protein Albumin Triglycerides Arterial Blood Glucose Arterial Blood Ionized Calcium Urine WBC (Auto) Coronavirus (PCR) SARS-CoV-2 IgG Ab 06/21/20 06/21/20 06/21/20 04:00 05:14 05:51 WBC RBC Hgb Hct MCV MCH MCHC RDW Lymph % (Auto) Lymph # (Auto) Seg Neutrophils % Seg Neuts % (Manual) Lymphocytes % (Manual) Nucleated RBC % Seg Neutrophils # Seg Neutrophils # Man Lymphocytes # (Manual) Monocytes # (Manual) D-Dimer ABG pH 7.474 H POC ABG pCO2 POC ABG pO2 ABG pO2 ABG HCO3 52.1 H ABG O2 Saturation ABG Base Excess 23.3 H ABG Hemoglobin 5.3 L ABG Oxyhemoglobin ABG Sodium ABG Potassium ABG Chloride ABG Glucose Oxyhemoglobin 93.8 L Sodium Potassium Chloride Carbon Dioxide BUN Creatinine Glucose POC Glucose 122 H 129 H Lactic Acid Calcium Magnesium Ferritin Total Bilirubin Direct Bilirubin AST ALT Alkaline Phosphatase Lactate Dehydrogenase C-Reactive Protein Total Protein Albumin Triglycerides Arterial Blood Glucose Arterial Blood Ionized Calcium Urine WBC (Auto) Coronavirus (PCR) SARS-CoV-2 IgG Ab 06/21/20 06/21/20 06/21/20 11:00 11:00 11:42 WBC 14.2 H RBC 1.85 L Hgb 6.2 L Hct 19.5 L* MCV 105 H MCH 34 H MCHC RDW 18.0 H Lymph % (Auto) Lymph # (Auto) Seg Neutrophils % Seg Neuts % (Manual) Lymphocytes % (Manual) Nucleated RBC % Seg Neutrophils # Seg Neutrophils # Man Lymphocytes # (Manual) Monocytes # (Manual) D-Dimer ABG pH POC ABG pCO2 POC ABG pO2 ABG pO2 ABG HCO3 ABG O2 Saturation ABG Base Excess ABG Hemoglobin ABG Oxyhemoglobin ABG Sodium ABG Potassium ABG Chloride ABG Glucose Oxyhemoglobin Sodium 147 H Potassium Chloride Carbon Dioxide 51 H* BUN 31 H Creatinine 0.5 L Glucose 224 H POC Glucose 217 H Lactic Acid Calcium Magnesium Ferritin Total Bilirubin Direct Bilirubin AST ALT Alkaline Phosphatase Lactate Dehydrogenase C-Reactive Protein Total Protein Albumin Triglycerides Arterial Blood Glucose Arterial Blood Ionized Calcium Urine WBC (Auto) Coronavirus (PCR) SARS-CoV-2 IgG Ab Chest x-ray: other (none today) Allied health notes reviewed: nursing
[2020-06-21] MEDS ORDERED: LIDOCAINE 2%/EPINEPHRINE 1:100,000 VIAL (20 ML) INFILTRATI ONE (15:00)
[2020-06-21 15:06] LABS: INR 1.19 (0.87-1.13)
--- NOTE | 2020-06-21 15:16 | Procedure Note ---
Date of procedure: 06/21/20 Pre-op diagnosis: right pneumothorax Post-op diagnosis: same Procedure: right chest tube placement 24F Anesthesia: local Surgeon: BRE DELGADO [employer] Supervisor: ANGELINA ESPINOZA Estimated blood loss: minimal Pathology: none Condition: stable Disposition: no change (chest tube is 12cm at the skin at 4th intercostal space, attached to pleurovac)
--- NOTE | 2020-06-21 16:34 | XRay Report ---
CHEST 1 VIEW 4:20 PM INDICATION: chest tube placement. COMPARISON: Earlier today FINDINGS: Support devices: There is a new right thoracostomy tube. Previously seen support devices remain in sa tisfactory position. Heart: Stable. Lungs/Pleura: Previously seen tiny right apical pneumothorax is not visualized on today's exam. Bilat eral pulmonary opacities are stable. IMPRESSION: 1. Interval right thoracostomy tube placement. No right pneumothorax is seen. Signer Name: Salvador Pool MD Signed: 06/21/2020 4:30 PM Workstation Name: [id number]
[2020-06-21] MEDS: NORepinephrine/NS 4 MG-250 ML 4 MG/250 ML BAG IV SCH (17:02)
[2020-06-21] MEDS: ACETAMINOPHEN 325 MG/10.15 ML ORAL LIQD UNIT DOSE FEEDTUBE PRN (20:21)
[2020-06-21] MEDS: POLYETHYLENE GLYCOL 3350 17 GM POWDER PO SCH (21:29)
[2020-06-21] MEDS: INSULIN GLARGINE 100 UNITS/ML SUB-Q SCH (21:30)
[2020-06-22] MEDS: INSULIN LISPRO 100 UNIT/ML VIAL 3 mL SUB-Q SCH ×4 (01:14→17:56)
[2020-06-22] MEDS: LACTULOSE 20 GM/30 ML ORAL LIQD PO SCH ×3 (01:16→12:33)
[2020-06-22] MEDS: MIDAZOLAM 100 MG in SODIUM CHLORIDE 0.9% 80 ML IV SCH ×2 (01:19→19:54)
[2020-06-22] MEDS: fentaNYL DRIP Premix 2,000 MCG/100 ML BAG IV SCH ×5 (01:20→19:26)
--- NOTE | 2020-06-22 03:48 | XRay Report ---
CHEST 1 VIEW, 06/22/2020 2:50 AM CLINICAL INFORMATION/INDICATION: Pneumothorax COMPARISON: Chest radiograph, 06/21/2020 at 4:20 PM FINDINGS: SUPPORT DEVICES: Support tubes and lines project in stable position. HEART: The cardiac silhouette is normal in size. LUNGS/PLEURA: Diffuse bilateral pulmonary opacities do not appear significantly changed. No pneumotho rax is visualized. ADDITIONAL FINDINGS: No additional acute findings. IMPRESSION: 1. Stable appearance of the chest. Signer Name: Teresa Vee MD Signed: 06/22/2020 3:44 AM Workstation Name: [id number]
[2020-06-22 04:31] LABS: ABG HCO3 47.5 mmol/L (20.0-26.0); ABG Methemoglobin 0.5 % (0.0-1.5); ABG Oxygen Saturation 97.1 % (95.0-99.0); ABG PCO2 69.8 mm Hg; ABG PH 7.451 pH Units (7.350-7.450); ABG PO2 89.6 mm Hg (80.0-90.0)
[2020-06-22 05:00] LABS: Hematocrit 27.2 % (35.5-45.6); Hemoglobin 8.9 gm/dl (11.8-15.2); Mean Corpuscular HGB Conc 33 % (32-34); Mean Corpuscular Volume 101 fl (84-94); Platelet Count 255 K/mm3 (140-440); Red Cell Distribution Width 17.7 % (13.2-15.2)
[2020-06-22 05:21] LABS: Blood Urea Nitrogen 34 mg/dL (9-20); Calcium 9.3 mg/dL (8.4-10.2); Hemolysis Index 2
[2020-06-22 05:22] LABS: BUN/Creatinine Ratio 85
[2020-06-22] MEDS: PHENobarbital 20 MG/5 ML ORAL LIQD FEEDTUBE SCH ×3 (05:38→21:56)
[2020-06-22] MEDS: methylPREDNISolone Sod Succinate 40 MG/1 ML INJ IV SCH ×2 (06:13→17:20)
[2020-06-22 06:57] LABS: Anisocytosis Few; Macrocytosis Few; Total Cells Counted 100
[2020-06-22 06:58] LABS: Platelet Estimate Consistent w Auto
[2020-06-22] MEDS ORDERED: INSULIN GLARGINE 100 UNITS/ML SUB-Q ONE (10:00)
[2020-06-22] MEDS: FAMOTIDINE 20 MG TAB PO SCH ×2 (10:28→21:56)
[2020-06-22] MEDS: FOLIC ACID 1 MG TAB PO SCH (10:28)
[2020-06-22] MEDS: QUEtiapine 100 MG TAB PO SCH ×2 (10:29→21:54)
[2020-06-22] MEDS: SENNOSIDES 8.6 MG TAB PO SCH ×2 (10:29→21:55)
[2020-06-22] MEDS: DOCUSATE SODIUM 100 MG/10 ML ORAL LIQD PO SCH ×2 (10:30→21:55)
[2020-06-22] MEDS ORDERED: HEPARIN 10,000 UNITS/10 ML VIAL IV PRN (12:48)
[2020-06-22] MEDS ORDERED: POTASSIUM CHLORIDE 20 MEQ PACKET FEEDTUBE ONE (13:00)
[2020-06-22] MEDS: SIMETHICONE 80 MG CHEW TAB PO SCH ×2 (13:32→18:08)
--- NOTE | 2020-06-22 14:13 | Progress Note ---
Assessment and Plan Acute hypoxemic respiratory failure due to COVID-19 Severe Sepsis Bilateral pneumonia Acute kidney injury (SEN) with acute tubular necrosis (ATN) Alcohol dependence Elevated liver function tests - get stool guaiac - resume Lovenox now post Left chest tube placement - H&H q12h X 48 hours - send stool occult & repeat KUB +/- G.I. consult for distension, Anemia - INR WNL - continue care as below otherwise; - keep peep at 14 - continue bowel regimen - continue to wean supplemental oxygen for target O2 sat's > 92% acutely - continue to wean Levophed for target MAP > 65 mmHg (2 mics/min) - tracheostomy placement once oxygenation better / more hemodynamically stable - he will need a tracheostomy once numbers better - continue Daily SAT and SBT assessment as tolerated - VAP bundle addressed - continue lung protective strategies - continue bronchodilators with pulmonary hygiene per RT - wean per pulmonary driven protocols otherwise - accuchecks with glycemic control per SSI (While critically ill target blood glucose of 140-180 mg/dL; avoid hypoglycemia) - sedation prn for target RASS -1 to -2 - continue enteral nutritional support at goal rate as tolerated - continue airborne and contact isolation - follow repeat COVID-19 testing - continue Zinc & Vit C supplementaion - continue systemic steroids for Asthma / severe COVID infection - Prone positioning as tolerated - continue empiric full dose anticoagulation re: elevated d-dimers / hypercoagulable state - NOT a candidate for COVID convalescent plasma - continue systemic steroids X >/= 10 days - completed remdesivir dosing (total 5 days) - empiric AB's coverage per ID rec's - accuchecks with glycemic control per SSI (While critically ill target blood glucose of 140-180 mg/dL; avoid hypoglycemia) - avoid nephrotoxins, renally dose all medications - continue to avoid benzodiazepine's, reduce the possibility of delirium - continue wound care per RN / WCN - prn analgesia per CPOT score - Maintenance of sleep-wake cycle, avoid delirium - continue to avoid benzodiazepine's, reduce the possibility of delirium - aspiration precautions - G.I. & VTE prophylaxis - PT/OT/ROM exercises - continue mobility protocols for pressure ulcer prophylaxis - Monitor hemodynamics closely - continue other care per attending / other consultants - discharge planning ongoing concurrently .... Re-evaluate in am & prn CONDITION: CRITICAL PROGNOSIS: GUARDED CODE STATUS: FULL CODE The high probability of a clinically significant, sudden or life-threatening deterioration of the [respiratory, cardiovascular, hematologic & neurologic] system(s) required my full and direct attention, intervention and personal management. The aggregate critical care time was [33] minutes without overlap. Time includes spent on; [x] Data Review and interpretation [x] Patient assessment and monitoring of vital signs [x] Documentation [x] Medication orders and management Subjective Date of service: 06/22/20 Principal diagnosis: Ac hypoxemic resp failure; COVID-19; Severe Sepsis; Shaggy PNA; Alcohol Abuse Interval history: Patient is seen today for: Acute hypoxemic respiratory failure due to COVID-19; Severe Sepsis; Bilateral pneumonia; Alcohol dependence; Elevated liver function tests Seen and examined at bedside; 24hour events reviewed; nursing and respiratory care staff consulted; no adverse overnight events reported to me; resting in bed; remains on MVS; abdominal distension is progressive but no emesis and tolerating tube feeds; no gross bleeding noted Objective Vital Signs - 12hr 06/22/20 06/22/20 06/22/20 02:15 02:30 02:45 Temperature Pulse Rate 104 H 104 H 107 H Pulse Rate [ From Monitor] Respiratory 30 H 30 H 24 Rate Blood Pressure 93/63 96/65 94/63 O2 Sat by Pulse 94 95 Oximetry 06/22/20 06/22/20 06/22/20 03:00 03:15 03:30 Temperature Pulse Rate 103 H 103 H 104 H Pulse Rate [ From Monitor] Respiratory 30 H 30 H 30 H Rate Blood Pressure 95/63 98/63 96/65 O2 Sat by Pulse 97 97 97 Oximetry 06/22/20 06/22/20 06/22/20 03:39 03:45 04:00 Temperature 98.0 F Pulse Rate 103 H 106 H 106 H Pulse Rate [ 91 H From Monitor] Respiratory 0 L 30 H 30 H Rate Blood Pressure 96/65 95/68 104/75 O2 Sat by Pulse 96 100 98 Oximetry 06/22/20 06/22/20 06/22/20 04:15 04:30 04:45 Temperature Pulse Rate 110 H 105 H Pulse Rate [ From Monitor] Respiratory 30 H 30 H Rate Blood Pressure 95/68 113/69 99/65 O2 Sat by Pulse 97 98 Oximetry 06/22/20 06/22/20 06/22/20 05:00 05:15 05:30 Temperature Pulse Rate 104 H 102 H 100 H Pulse Rate [ From Monitor] Respiratory 30 H 30 H 30 H Rate Blood Pressure 97/61 92/57 93/59 O2 Sat by Pulse 100 100 99 Oximetry 06/22/20 06/22/20 06/22/20 05:45 06:00 06:15 Temperature Pulse Rate 99 H 99 H 97 H Pulse Rate [ From Monitor] Respiratory 30 H 30 H 30 H Rate Blood Pressure 97/61 96/61 92/60 O2 Sat by Pulse 100 Oximetry 06/22/20 06/22/20 06/22/20 06:30 06:45 07:00 Temperature Pulse Rate 97 H 96 H 97 H Pulse Rate [ From Monitor] Respiratory 30 H 30 H 30 H Rate Blood Pressure 98/61 94/60 92/60 O2 Sat by Pulse 100 98 98 Oximetry 06/22/20 06/22/20 06/22/20 07:15 07:30 07:45 Temperature Pulse Rate 96 H 98 H 99 H Pulse Rate [ From Monitor] Respiratory 30 H 30 H 30 H Rate Blood Pressure 100/60 99/62 102/64 O2 Sat by Pulse 97 97 98 Oximetry 06/22/20 06/22/20 06/22/20 08:00 08:15 08:30 Temperature 98.8 F Pulse Rate 98 H 98 H 99 H Pulse Rate [ 95 H From Monitor] Respiratory 30 H 30 H 30 H Rate Blood Pressure 102/66 106/66 101/68 O2 Sat by Pulse 99 96 97 Oximetry 06/22/20 06/22/20 06/22/20 08:42 08:45 09:00 Temperature Pulse Rate 102 H 101 H 107 H Pulse Rate [ From Monitor] Respiratory 30 H 31 H Rate Blood Pressure 104/71 104/71 120/83 O2 Sat by Pulse 100 97 96 Oximetry 06/22/20 06/22/20 06/22/20 09:15 09:30 09:45 Temperature Pulse Rate 113 H 115 H 117 H Pulse Rate [ From Monitor] Respiratory 24 24 21 Rate Blood Pressure 117/87 123/78 132/82 O2 Sat by Pulse 96 96 95 Oximetry 06/22/20 06/22/20 06/22/20 10:00 10:15 10:30 Temperature Pulse Rate 122 H 122 H 127 H Pulse Rate [ From Monitor] Respiratory 31 H 29 H 34 H Rate Blood Pressure 130/92 144/85 146/88 O2 Sat by Pulse 93 92 91 Oximetry 06/22/20 06/22/20 06/22/20 10:46 11:00 11:15 Temperature Pulse Rate 130 H 129 H 130 H Pulse Rate [ From Monitor] Respiratory 26 H 20 25 H Rate Blood Pressure 122/69 108/62 95/59 O2 Sat by Pulse 89 92 90 Oximetry 06/22/20 06/22/20 06/22/20 11:30 11:45 12:00 Temperature Pulse Rate 128 H 128 H 127 H Pulse Rate [ 101 H From Monitor] Respiratory 15 15 19 Rate Blood Pressure 101/64 106/68 97/59 O2 Sat by Pulse 91 91 93 Oximetry 06/22/20 06/22/20 06/22/20 12:15 12:30 12:36 Temperature Pulse Rate 130 H 127 H Pulse Rate [ From Monitor] Respiratory 22 21 Rate Blood Pressure 114/66 99/61 O2 Sat by Pulse 95 98 98 Oximetry 06/22/20 06/22/20 06/22/20 12:45 13:00 13:15 Temperature Pulse Rate 124 H 128 H 121 H Pulse Rate [ From Monitor] Respiratory 25 H 22 30 H Rate Blood Pressure 91/64 111/70 93/57 O2 Sat by Pulse 94 94 94 Oximetry Constitutional: appears uncomfortable, other (middle aged obese male with mildly increased respiratory effort at rest on MVS) Eyes: non-icteric ENT: oropharynx moist, other (ETT 24 cm CHILO) Neck: supple, no JVD Effort: mildly labored Ascultation: Bilateral: diminished breath sounds, rhonchi (scant) Percussion: Bilateral: not dull Cardiovascular: regular rate and rhythm, other (No R/M) Gastrointestinal: normoactive bowel sounds, soft, non-tender, other (distended and firm) Integumentary: normal Extremities: no cyanosis, no edema, pulses normal, no ischemia or petechiae Neurologic: pupils equal and round, CN II-XII normal, other (unable top assess re: AMS) Psychiatric: other (sedated) CBC and BMP: 06/23/20 09:41 06/23/20 06:50 ABG, PT/INR, D-dimer: ABG ABG pH 7.451 pH Units (7.350-7.450) H 06/22/20 03:50 POC ABG pCO2 83.1 mmHg (32.0-48.0) H 06/19/20 04:32 ABG pCO2 69.8 mm Hg 06/22/20 03:50 POC ABG pO2 65.8 mmHg (83-108) L 06/19/20 04:32 ABG pO2 89.6 mm Hg (80.0-90.0) 06/22/20 03:50 POC ABG HCO3 49.2 06/19/20 04:32 ABG O2 Saturation 97.1 % (95.0-99.0) 06/22/20 03:50 PT/INR, D-dimer PT 15.1 Sec. (12.2-14.9) H 06/21/20 14:30 INR 1.19 (0.87-1.13) H 06/21/20 14:30 D-Dimer 1887.82 ng/mlDDU (0-234) H 05/20/20 08:16 Abnormal lab findings: Abnormal Labs 05/09/20 05/09/20 05/09/20 12:59 12:59 12:59 WBC 11.8 H RBC Hgb Hct MCV 96 H MCH 34 H MCHC 35 H RDW Lymph % (Auto) 6.9 L Lymph # (Auto) 0.8 L Seg Neutrophils % 87.5 H Seg Neuts % (Manual) Lymphocytes % (Manual) Nucleated RBC % Seg Neutrophils # 10.3 H Seg Neutrophils # Man Lymphocytes # (Manual) Monocytes # (Manual) PT INR D-Dimer ABG pH POC ABG pCO2 POC ABG pO2 ABG pO2 ABG HCO3 ABG O2 Saturation ABG Base Excess ABG Hemoglobin ABG Oxyhemoglobin ABG Sodium ABG Potassium ABG Chloride ABG Glucose Oxyhemoglobin Sodium 130 L Potassium 3.5 L Chloride 86.4 L Carbon Dioxide BUN 33 H Creatinine 2.3 H Glucose 156 H POC Glucose Lactic Acid Calcium Magnesium Ferritin Total Bilirubin 3.40 H Direct Bilirubin 1.7 H AST 385 H ALT 134 H Alkaline Phosphatase Lactate Dehydrogenase C-Reactive Protein Total Protein Albumin 3.0 L Triglycerides Arterial Blood Glucose Arterial Blood Ionized Calcium Urine WBC (Auto) Coronavirus (PCR) SARS-CoV-2 IgG Ab Crossmatch 05/09/20 05/09/20 05/09/20 12:59 12:59 12:59 WBC RBC Hgb Hct MCV MCH MCHC RDW Lymph % (Auto) Lymph # (Auto) Seg Neutrophils % Seg Neuts % (Manual) Lymphocytes % (Manual) Nucleated RBC % Seg Neutrophils # Seg Neutrophils # Man Lymphocytes # (Manual) Monocytes # (Manual) PT INR D-Dimer 3242.51 H ABG pH POC ABG pCO2 POC ABG pO2 ABG pO2 ABG HCO3 ABG O2 Saturation ABG Base Excess ABG Hemoglobin ABG Oxyhemoglobin ABG Sodium ABG Potassium ABG Chloride ABG Glucose Oxyhemoglobin Sodium Potassium Chloride Carbon Dioxide BUN Creatinine Glucose 158 H POC Glucose Lactic Acid 3.50 H* Calcium Magnesium Ferritin Total Bilirubin Direct Bilirubin AST ALT Alkaline Phosphatase Lactate Dehydrogenase 2166 H C-Reactive Protein 39.00 H Total Protein Albumin Triglycerides Arterial Blood Glucose Arterial Blood Ionized Calcium Urine WBC (Auto) Coronavirus (PCR) SARS-CoV-2 IgG Ab Crossmatch 05/09/20 05/09/20 05/09/20 12:59 14:20 14:20 WBC RBC Hgb Hct MCV MCH MCHC RDW Lymph % (Auto) Lymph # (Auto) Seg Neutrophils % Seg Neuts % (Manual) Lymphocytes % (Manual) Nucleated RBC % Seg Neutrophils # Seg Neutrophils # Man Lymphocytes # (Manual) Monocytes # (Manual) PT INR D-Dimer 2861.78 H ABG pH POC ABG pCO2 POC ABG pO2 ABG pO2 ABG HCO3 ABG O2 Saturation ABG Base Excess ABG Hemoglobin ABG Oxyhemoglobin ABG Sodium ABG Potassium ABG Chloride ABG Glucose Oxyhemoglobin Sodium Potassium Chloride Carbon Dioxide BUN Creatinine Glucose POC Glucose Lactic Acid 2.20 H* Calcium Magnesium Ferritin 30091.0 H Total Bilirubin Direct Bilirubin AST ALT Alkaline Phosphatase Lactate Dehydrogenase C-Reactive Protein Total Protein Albumin Triglycerides Arterial Blood Glucose Arterial Blood Ionized Calcium Urine WBC (Auto) Coronavirus (PCR) SARS-CoV-2 IgG Ab Crossmatch 05/09/20 05/09/20 05/09/20 14:20 14:20 15:56 WBC RBC Hgb Hct MCV MCH MCHC RDW Lymph % (Auto) Lymph # (Auto) Seg Neutrophils % Seg Neuts % (Manual) Lymphocytes % (Manual) Nucleated RBC % Seg Neutrophils # Seg Neutrophils # Man Lymphocytes # (Manual) Monocytes # (Manual) PT INR D-Dimer ABG pH POC ABG pCO2 POC ABG pO2 57.3 L ABG pO2 ABG HCO3 ABG O2 Saturation ABG Base Excess ABG Hemoglobin ABG Oxyhemoglobin 86.3 L ABG Sodium 129.9 L ABG Potassium ABG Chloride ABG Glucose 146 H Oxyhemoglobin Sodium Potassium Chloride Carbon Dioxide BUN Creatinine Glucose 143 H POC Glucose Lactic Acid Calcium Magnesium Ferritin 22993.0 H Total Bilirubin Direct Bilirubin AST ALT Alkaline Phosphatase Lactate Dehydrogenase 1953 H C-Reactive Protein 33.50 H Total Protein Albumin Triglycerides Arterial Blood Glucose 146 H Arterial Blood Ionized Calcium 3.9 L Urine WBC (Auto) Coronavirus (PCR) SARS-CoV-2 IgG Ab Crossmatch 05/10/20 05/10/20 05/10/20 10:32 10:32 18:50 WBC 15.4 H RBC Hgb Hct MCV 97 H MCH 33 H MCHC RDW 13.1 L Lymph % (Auto) Lymph # (Auto) Seg Neutrophils % Seg Neuts % (Manual) 89.0 H Lymphocytes % (Manual) 8.0 L Nucleated RBC % Seg Neutrophils # Seg Neutrophils # Man 13.7 H Lymphocytes # (Manual) Monocytes # (Manual) PT INR D-Dimer ABG pH POC ABG pCO2 POC ABG pO2 ABG pO2 ABG HCO3 ABG O2 Saturation ABG Base Excess ABG Hemoglobin ABG Oxyhemoglobin ABG Sodium ABG Potassium ABG Chloride ABG Glucose Oxyhemoglobin Sodium 136 L Potassium Chloride 97.4 L Carbon Dioxide BUN 37 H Creatinine 1.7 H Glucose 209 H POC Glucose Lactic Acid Calcium Magnesium Ferritin > 2000.0 H Total Bilirubin Direct Bilirubin AST ALT Alkaline Phosphatase Lactate Dehydrogenase C-Reactive Protein Total Protein Albumin Triglycerides Arterial Blood Glucose Arterial Blood Ionized Calcium Urine WBC (Auto) Coronavirus (PCR) SARS-CoV-2 IgG Ab Crossmatch 05/10/20 05/10/20 05/10/20 18:50 19:00 Unknown WBC RBC Hgb Hct MCV MCH MCHC RDW Lymph % (Auto) Lymph # (Auto) Seg Neutrophils % Seg Neuts % (Manual) Lymphocytes % (Manual) Nucleated RBC % Seg Neutrophils # Seg Neutrophils # Man Lymphocytes # (Manual) Monocytes # (Manual) PT INR D-Dimer > 34908 H ABG pH POC ABG pCO2 POC ABG pO2 ABG pO2 ABG HCO3 ABG O2 Saturation ABG Base Excess ABG Hemoglobin ABG Oxyhemoglobin ABG Sodium ABG Potassium ABG Chloride ABG Glucose Oxyhemoglobin Sodium Potassium Chloride Carbon Dioxide BUN Creatinine Glucose POC Glucose Lactic Acid Calcium Magnesium Ferritin Total Bilirubin Direct Bilirubin AST ALT Alkaline Phosphatase Lactate Dehydrogenase 1879 H C-Reactive Protein 24.80 H Total Protein Albumin Triglycerides Arterial Blood Glucose Arterial Blood Ionized Calcium Urine WBC (Auto) 11.0 H Coronavirus (PCR) SARS-CoV-2 IgG Ab Crossmatch 05/10/20 05/11/20 05/11/20 Unknown 07:30 07:30 WBC RBC Hgb Hct MCV MCH MCHC RDW Lymph % (Auto) Lymph # (Auto) Seg Neutrophils % Seg Neuts % (Manual) Lymphocytes % (Manual) Nucleated RBC % Seg Neutrophils # Seg Neutrophils # Man Lymphocytes # (Manual) Monocytes # (Manual) PT INR D-Dimer > 2000 H ABG pH POC ABG pCO2 POC ABG pO2 ABG pO2 ABG HCO3 ABG O2 Saturation ABG Base Excess ABG Hemoglobin ABG Oxyhemoglobin ABG Sodium ABG Potassium ABG Chloride ABG Glucose Oxyhemoglobin Sodium Potassium Chloride 96.3 L Carbon Dioxide BUN 36 H Creatinine Glucose 161 H POC Glucose Lactic Acid Calcium 8.3 L Magnesium Ferritin Total Bilirubin 1.50 H Direct Bilirubin 0.6 H AST 178 H ALT 111 H Alkaline Phosphatase Lactate Dehydrogenase C-Reactive Protein Total Protein Albumin 3.0 L Triglycerides Arterial Blood Glucose Arterial Blood Ionized Calcium Urine WBC (Auto) Coronavirus (PCR) Positive A SARS-CoV-2 IgG Ab Crossmatch 05/11/20 05/11/20 05/11/20 07:30 07:30 07:30 WBC RBC Hgb Hct MCV MCH MCHC RDW Lymph % (Auto) Lymph # (Auto) Seg Neutrophils % Seg Neuts % (Manual) Lymphocytes % (Manual) Nucleated RBC % Seg Neutrophils # Seg Neutrophils # Man Lymphocytes # (Manual) Monocytes # (Manual) PT INR D-Dimer ABG pH POC ABG pCO2 POC ABG pO2 ABG pO2 ABG HCO3 ABG O2 Saturation ABG Base Excess ABG Hemoglobin ABG Oxyhemoglobin ABG Sodium ABG Potassium ABG Chloride ABG Glucose Oxyhemoglobin Sodium Potassium Chloride Carbon Dioxide BUN Creatinine Glucose POC Glucose Lactic Acid Calcium Magnesium Ferritin 20416.0 H Total Bilirubin Direct Bilirubin AST ALT Alkaline Phosphatase Lactate Dehydrogenase 1523 H C-Reactive Protein 12.90 H Total Protein Albumin Triglycerides Arterial Blood Glucose Arterial Blood Ionized Calcium Urine WBC (Auto) Coronavirus (PCR) SARS-CoV-2 IgG Ab Reactive A Crossmatch 05/13/20 05/13/20 05/15/20 05:20 05:20 08:15 WBC RBC Hgb Hct MCV MCH MCHC RDW Lymph % (Auto) Lymph # (Auto) Seg Neutrophils % Seg Neuts % (Manual) Lymphocytes % (Manual) Nucleated RBC % Seg Neutrophils # Seg Neutrophils # Man Lymphocytes # (Manual) Monocytes # (Manual) PT INR D-Dimer > 68948 H 5318.28 H ABG pH POC ABG pCO2 POC ABG pO2 ABG pO2 ABG HCO3 ABG O2 Saturation ABG Base Excess ABG Hemoglobin ABG Oxyhemoglobin ABG Sodium ABG Potassium ABG Chloride ABG Glucose Oxyhemoglobin Sodium Potassium Chloride Carbon Dioxide 32 H BUN 30 H Creatinine Glucose 156 H POC Glucose Lactic Acid Calcium Magnesium 2.60 H Ferritin Total Bilirubin 1.40 H Direct Bilirubin AST 121 H ALT 119 H Alkaline Phosphatase Lactate Dehydrogenase 957 H C-Reactive Protein 4.00 H Total Protein Albumin 3.0 L Triglycerides Arterial Blood Glucose Arterial Blood Ionized Calcium Urine WBC (Auto) Coronavirus (PCR) SARS-CoV-2 IgG Ab Crossmatch 05/15/20 05/15/20 05/15/20 08:15 08:15 08:15 WBC 12.4 H RBC Hgb Hct MCV 98 H MCH 33 H MCHC RDW Lymph % (Auto) 9.7 L Lymph # (Auto) Seg Neutrophils % 86.8 H Seg Neuts % (Manual) Lymphocytes % (Manual) Nucleated RBC % Seg Neutrophils # 10.8 H Seg Neutrophils # Man Lymphocytes # (Manual) Monocytes # (Manual) PT INR D-Dimer ABG pH POC ABG pCO2 POC ABG pO2 ABG pO2 ABG HCO3 ABG O2 Saturation ABG Base Excess ABG Hemoglobin ABG Oxyhemoglobin ABG Sodium ABG Potassium ABG Chloride ABG Glucose Oxyhemoglobin Sodium Potassium Chloride 94.8 L Carbon Dioxide 32 H BUN 22 H Creatinine Glucose 115 H POC Glucose Lactic Acid Calcium 8.3 L Magnesium Ferritin 2494.0 H Total Bilirubin Direct Bilirubin AST 73 H ALT 121 H Alkaline Phosphatase Lactate Dehydrogenase 835 H C-Reactive Protein 3.40 H Total Protein 6.1 L Albumin 3.0 L Triglycerides Arterial Blood Glucose Arterial Blood Ionized Calcium Urine WBC (Auto) Coronavirus (PCR) SARS-CoV-2 IgG Ab Crossmatch 05/17/20 05/17/20 05/17/20 05:50 05:50 05:50 WBC RBC Hgb Hct MCV MCH MCHC RDW Lymph % (Auto) Lymph # (Auto) Seg Neutrophils % Seg Neuts % (Manual) Lymphocytes % (Manual) Nucleated RBC % Seg Neutrophils # Seg Neutrophils # Man Lymphocytes # (Manual) Monocytes # (Manual) PT INR D-Dimer 2911.42 H ABG pH POC ABG pCO2 POC ABG pO2 ABG pO2 ABG HCO3 ABG O2 Saturation ABG Base Excess ABG Hemoglobin ABG Oxyhemoglobin ABG Sodium ABG Potassium ABG Chloride ABG Glucose Oxyhemoglobin Sodium 136 L Potassium Chloride 96.0 L Carbon Dioxide 34 H BUN 22 H Creatinine Glucose 140 H POC Glucose Lactic Acid Calcium Magnesium Ferritin 2082.0 H Total Bilirubin Direct Bilirubin AST ALT 75 H Alkaline Phosphatase Lactate Dehydrogenase 601 H C-Reactive Protein 2.70 H Total Protein Albumin 2.9 L Triglycerides Arterial Blood Glucose Arterial Blood Ionized Calcium Urine WBC (Auto) Coronavirus (PCR) SARS-CoV-2 IgG Ab Crossmatch 05/17/20 05/18/20 05/20/20 05:50 12:22 08:16 WBC RBC Hgb Hct MCV 98 H MCH 33 H MCHC RDW Lymph % (Auto) 8.0 L Lymph # (Auto) 0.8 L Seg Neutrophils % 89.3 H Seg Neuts % (Manual) Lymphocytes % (Manual) Nucleated RBC % Seg Neutrophils # 8.8 H Seg Neutrophils # Man Lymphocytes # (Manual) Monocytes # (Manual) PT INR D-Dimer 1887.82 H ABG pH POC ABG pCO2 POC ABG pO2 ABG pO2 ABG HCO3 ABG O2 Saturation ABG Base Excess ABG Hemoglobin ABG Oxyhemoglobin ABG Sodium ABG Potassium ABG Chloride ABG Glucose Oxyhemoglobin Sodium Potassium Chloride Carbon Dioxide BUN Creatinine Glucose POC Glucose 178 H Lactic Acid Calcium Magnesium Ferritin Total Bilirubin Direct Bilirubin AST ALT Alkaline Phosphatase Lactate Dehydrogenase C-Reactive Protein Total Protein Albumin Triglycerides Arterial Blood Glucose Arterial Blood Ionized Calcium Urine WBC (Auto) Coronavirus (PCR) SARS-CoV-2 IgG Ab Crossmatch 05/20/20 05/20/20 05/21/20 08:16 08:16 21:10 WBC RBC Hgb Hct MCV MCH MCHC RDW Lymph % (Auto) Lymph # (Auto) Seg Neutrophils % Seg Neuts % (Manual) Lymphocytes % (Manual) Nucleated RBC % Seg Neutrophils # Seg Neutrophils # Man Lymphocytes # (Manual) Monocytes # (Manual) PT INR D-Dimer ABG pH 7.483 H POC ABG pCO2 POC ABG pO2 ABG pO2 50.0 L ABG HCO3 27.0 H ABG O2 Saturation 86.2 L ABG Base Excess 3.7 H ABG Hemoglobin ABG Oxyhemoglobin ABG Sodium ABG Potassium ABG Chloride ABG Glucose Oxyhemoglobin 84.2 L Sodium Potassium Chloride Carbon Dioxide BUN Creatinine Glucose POC Glucose Lactic Acid Calcium Magnesium Ferritin 1960.0 H Total Bilirubin Direct Bilirubin AST ALT Alkaline Phosphatase Lactate Dehydrogenase 705 H C-Reactive Protein 3.10 H Total Protein Albumin Triglycerides Arterial Blood Glucose Arterial Blood Ionized Calcium Urine WBC (Auto) Coronavirus (PCR) SARS-CoV-2 IgG Ab Crossmatch 05/22/20 05/22/20 05/22/20 04:01 07:53 07:53 WBC 19.2 H RBC Hgb Hct MCV 98 H MCH 34 H MCHC RDW Lymph % (Auto) Lymph # (Auto) Seg Neutrophils % Seg Neuts % (Manual) 96.0 H Lymphocytes % (Manual) 1.0 L Nucleated RBC % Seg Neutrophils # Seg Neutrophils # Man 18.4 H Lymphocytes # (Manual) 0.2 L Monocytes # (Manual) PT INR D-Dimer ABG pH POC ABG pCO2 53.8 H POC ABG pO2 125.5 H ABG pO2 ABG HCO3 ABG O2 Saturation ABG Base Excess ABG Hemoglobin ABG Oxyhemoglobin ABG Sodium 131.8 L ABG Potassium 4.8 H ABG Chloride 94.0 L ABG Glucose 163 H Oxyhemoglobin Sodium 131 L Potassium Chloride 93.4 L Carbon Dioxide BUN 40 H Creatinine Glucose 176 H POC Glucose Lactic Acid Calcium Magnesium 2.70 H Ferritin Total Bilirubin 1.80 H Direct Bilirubin AST 45 H ALT 116 H Alkaline Phosphatase 181 H Lactate Dehydrogenase C-Reactive Protein Total Protein Albumin 2.6 L Triglycerides Arterial Blood Glucose 163 H Arterial Blood Ionized Calcium 4.5 L Urine WBC (Auto) Coronavirus (PCR) SARS-CoV-2 IgG Ab Crossmatch 05/23/20 05/24/20 05/24/20 04:17 03:07 04:08 WBC RBC Hgb Hct MCV MCH MCHC RDW Lymph % (Auto) Lymph # (Auto) Seg Neutrophils % Seg Neuts % (Manual) Lymphocytes % (Manual) Nucleated RBC % Seg Neutrophils # Seg Neutrophils # Man Lymphocytes # (Manual) Monocytes # (Manual) PT INR D-Dimer ABG pH 7.328 L POC ABG pCO2 POC ABG pO2 ABG pO2 72.8 L 73.4 L ABG HCO3 31.0 H 34.0 H ABG O2 Saturation 93.5 L ABG Base Excess 3.5 H 7.7 H ABG Hemoglobin 13.3 L 12.1 L ABG Oxyhemoglobin ABG Sodium ABG Potassium ABG Chloride ABG Glucose Oxyhemoglobin 91.5 L 94.3 L Sodium Potassium Chloride Carbon Dioxide BUN Creatinine Glucose POC Glucose 155 H Lactic Acid Calcium Magnesium Ferritin Total Bilirubin Direct Bilirubin AST ALT Alkaline Phosphatase Lactate Dehydrogenase C-Reactive Protein Total Protein Albumin Triglycerides Arterial Blood Glucose Arterial Blood Ionized Calcium Urine WBC (Auto) Coronavirus (PCR) SARS-CoV-2 IgG Ab Crossmatch 05/24/20 05/24/20 05/24/20 09:33 12:21 17:52 WBC RBC Hgb Hct MCV MCH MCHC RDW Lymph % (Auto) Lymph # (Auto) Seg Neutrophils % Seg Neuts % (Manual) Lymphocytes % (Manual) Nucleated RBC % Seg Neutrophils # Seg Neutrophils # Man Lymphocytes # (Manual) Monocytes # (Manual) PT INR D-Dimer ABG pH POC ABG pCO2 POC ABG pO2 ABG pO2 ABG HCO3 ABG O2 Saturation ABG Base Excess ABG Hemoglobin ABG Oxyhemoglobin ABG Sodium ABG Potassium ABG Chloride ABG Glucose Oxyhemoglobin Sodium Potassium Chloride Carbon Dioxide 34 H D BUN 28 H Creatinine 0.7 L Glucose 168 H POC Glucose 173 H 164 H Lactic Acid Calcium Magnesium Ferritin Total Bilirubin Direct Bilirubin AST ALT Alkaline Phosphatase Lactate Dehydrogenase C-Reactive Protein Total Protein Albumin Triglycerides Arterial Blood Glucose Arterial Blood Ionized Calcium Urine WBC (Auto) Coronavirus (PCR) SARS-CoV-2 IgG Ab Crossmatch 05/24/20 05/25/20 05/25/20 23:47 04:29 05:46 WBC RBC Hgb Hct MCV MCH MCHC RDW Lymph % (Auto) Lymph # (Auto) Seg Neutrophils % Seg Neuts % (Manual) Lymphocytes % (Manual) Nucleated RBC % Seg Neutrophils # Seg Neutrophils # Man Lymphocytes # (Manual) Monocytes # (Manual) PT INR D-Dimer ABG pH POC ABG pCO2 68.6 H POC ABG pO2 ABG pO2 ABG HCO3 ABG O2 Saturation ABG Base Excess ABG Hemoglobin ABG Oxyhemoglobin ABG Sodium ABG Potassium 4.7 H ABG Chloride ABG Glucose 226 H Oxyhemoglobin Sodium Potassium Chloride Carbon Dioxide BUN Creatinine Glucose POC Glucose 171 H 201 H Lactic Acid Calcium Magnesium Ferritin Total Bilirubin Direct Bilirubin AST ALT Alkaline Phosphatase Lactate Dehydrogenase C-Reactive Protein Total Protein Albumin Triglycerides Arterial Blood Glucose 226 H Arterial Blood Ionized Calcium Urine WBC (Auto) Coronavirus (PCR) SARS-CoV-2 IgG Ab Crossmatch 05/25/20 05/25/20 05/25/20 08:37 08:37 12:38 WBC 12.0 H RBC 3.64 L Hgb Hct MCV 99 H MCH 33 H MCHC RDW Lymph % (Auto) Lymph # (Auto) Seg Neutrophils % Seg Neuts % (Manual) Lymphocytes % (Manual) Nucleated RBC % Seg Neutrophils # Seg Neutrophils # Man Lymphocytes # (Manual) Monocytes # (Manual) PT INR D-Dimer ABG pH POC ABG pCO2 POC ABG pO2 ABG pO2 ABG HCO3 ABG O2 Saturation ABG Base Excess ABG Hemoglobin ABG Oxyhemoglobin ABG Sodium ABG Potassium ABG Chloride ABG Glucose Oxyhemoglobin Sodium Potassium Chloride 97.3 L Carbon Dioxide 35 H BUN 25 H Creatinine 0.7 L Glucose 191 H POC Glucose 182 H Lactic Acid Calcium Magnesium Ferritin Total Bilirubin Direct Bilirubin AST ALT Alkaline Phosphatase Lactate Dehydrogenase C-Reactive Protein Total Protein Albumin Triglycerides Arterial Blood Glucose Arterial Blood Ionized Calcium Urine WBC (Auto) Coronavirus (PCR) SARS-CoV-2 IgG Ab Crossmatch 05/25/20 05/26/20 05/26/20 18:16 00:06 04:50 WBC RBC Hgb Hct MCV MCH MCHC RDW Lymph % (Auto) Lymph # (Auto) Seg Neutrophils % Seg Neuts % (Manual) Lymphocytes % (Manual) Nucleated RBC % Seg Neutrophils # Seg Neutrophils # Man Lymphocytes # (Manual) Monocytes # (Manual) PT INR D-Dimer ABG pH POC ABG pCO2 POC ABG pO2 ABG pO2 221.5 H ABG HCO3 40.4 H ABG O2 Saturation 99.3 H ABG Base Excess 12.8 H ABG Hemoglobin 10.4 L ABG Oxyhemoglobin ABG Sodium ABG Potassium ABG Chloride ABG Glucose Oxyhemoglobin Sodium Potassium Chloride Carbon Dioxide BUN Creatinine Glucose POC Glucose 176 H 152 H Lactic Acid Calcium Magnesium Ferritin Total Bilirubin Direct Bilirubin AST ALT Alkaline Phosphatase Lactate Dehydrogenase C-Reactive Protein Total Protein Albumin Triglycerides Arterial Blood Glucose Arterial Blood Ionized Calcium Urine WBC (Auto) Coronavirus (PCR) SARS-CoV-2 IgG Ab Crossmatch 05/26/20 05/26/20 05/26/20 06:11 07:51 07:51 WBC 13.4 H RBC 3.64 L Hgb Hct MCV 98 H MCH 33 H MCHC RDW Lymph % (Auto) Lymph # (Auto) Seg Neutrophils % Seg Neuts % (Manual) Lymphocytes % (Manual) Nucleated RBC % Seg Neutrophils # Seg Neutrophils # Man Lymphocytes # (Manual) Monocytes # (Manual) PT INR D-Dimer ABG pH POC ABG pCO2 POC ABG pO2 ABG pO2 ABG HCO3 ABG O2 Saturation ABG Base Excess ABG Hemoglobin ABG Oxyhemoglobin ABG Sodium ABG Potassium ABG Chloride ABG Glucose Oxyhemoglobin Sodium Potassium Chloride 96.6 L Carbon Dioxide 39 H BUN 29 H Creatinine 0.7 L Glucose 174 H POC Glucose 165 H Lactic Acid Calcium Magnesium Ferritin Total Bilirubin Direct Bilirubin AST ALT Alkaline Phosphatase Lactate Dehydrogenase C-Reactive Protein Total Protein Albumin Triglycerides Arterial Blood Glucose Arterial Blood Ionized Calcium Urine WBC (Auto) Coronavirus (PCR) SARS-CoV-2 IgG Ab Crossmatch 05/26/20 05/27/20 05/27/20 23:23 03:43 05:29 WBC RBC Hgb Hct MCV MCH MCHC RDW Lymph % (Auto) Lymph # (Auto) Seg Neutrophils % Seg Neuts % (Manual) Lymphocytes % (Manual) Nucleated RBC % Seg Neutrophils # Seg Neutrophils # Man Lymphocytes # (Manual) Monocytes # (Manual) PT INR D-Dimer ABG pH 7.480 H POC ABG pCO2 52.4 H POC ABG pO2 61.4 L ABG pO2 ABG HCO3 ABG O2 Saturation ABG Base Excess ABG Hemoglobin ABG Oxyhemoglobin ABG Sodium 134.9 L ABG Potassium ABG Chloride 95.0 L ABG Glucose 221 H Oxyhemoglobin Sodium Potassium Chloride Carbon Dioxide BUN Creatinine Glucose POC Glucose 169 H 227 H Lactic Acid Calcium Magnesium Ferritin Total Bilirubin Direct Bilirubin AST ALT Alkaline Phosphatase Lactate Dehydrogenase C-Reactive Protein Total Protein Albumin Triglycerides Arterial Blood Glucose 221 H Arterial Blood Ionized Calcium 4.5 L Urine WBC (Auto) Coronavirus (PCR) SARS-CoV-2 IgG Ab Crossmatch 05/27/20 05/27/20 05/27/20 07:19 12:18 13:50 WBC RBC Hgb Hct MCV MCH MCHC RDW Lymph % (Auto) Lymph # (Auto) Seg Neutrophils % Seg Neuts % (Manual) Lymphocytes % (Manual) Nucleated RBC % Seg Neutrophils # Seg Neutrophils # Man Lymphocytes # (Manual) Monocytes # (Manual) PT INR D-Dimer ABG pH POC ABG pCO2 POC ABG pO2 ABG pO2 ABG HCO3 ABG O2 Saturation ABG Base Excess ABG Hemoglobin ABG Oxyhemoglobin ABG Sodium ABG Potassium ABG Chloride ABG Glucose Oxyhemoglobin Sodium Potassium Chloride Carbon Dioxide BUN Creatinine Glucose POC Glucose 114 H 148 H Lactic Acid Calcium Magnesium Ferritin Total Bilirubin Direct Bilirubin AST ALT Alkaline Phosphatase Lactate Dehydrogenase C-Reactive Protein Total Protein Albumin Triglycerides 247 H Arterial Blood Glucose Arterial Blood Ionized Calcium Urine WBC (Auto) Coronavirus (PCR) SARS-CoV-2 IgG Ab Crossmatch 05/28/20 05/28/20 05/28/20 00:13 04:16 05:22 WBC RBC Hgb Hct MCV MCH MCHC RDW Lymph % (Auto) Lymph # (Auto) Seg Neutrophils % Seg Neuts % (Manual) Lymphocytes % (Manual) Nucleated RBC % Seg Neutrophils # Seg Neutrophils # Man Lymphocytes # (Manual) Monocytes # (Manual) PT INR D-Dimer ABG pH POC ABG pCO2 64.4 H POC ABG pO2 60.5 L ABG pO2 ABG HCO3 ABG O2 Saturation ABG Base Excess ABG Hemoglobin ABG Oxyhemoglobin ABG Sodium ABG Potassium ABG Chloride 95.0 L ABG Glucose 209 H Oxyhemoglobin Sodium Potassium Chloride Carbon Dioxide BUN Creatinine Glucose POC Glucose 155 H 186 H Lactic Acid Calcium Magnesium Ferritin Total Bilirubin Direct Bilirubin AST ALT Alkaline Phosphatase Lactate Dehydrogenase C-Reactive Protein Total Protein Albumin Triglycerides Arterial Blood Glucose 209 H Arterial Blood Ionized Calcium Urine WBC (Auto) Coronavirus (PCR) SARS-CoV-2 IgG Ab Crossmatch 05/28/20 05/28/20 05/29/20 12:45 17:39 00:37 WBC RBC Hgb Hct MCV MCH MCHC RDW Lymph % (Auto) Lymph # (Auto) Seg Neutrophils % Seg Neuts % (Manual) Lymphocytes % (Manual) Nucleated RBC % Seg Neutrophils # Seg Neutrophils # Man Lymphocytes # (Manual) Monocytes # (Manual) PT INR D-Dimer ABG pH POC ABG pCO2 POC ABG pO2 ABG pO2 ABG HCO3 ABG O2 Saturation ABG Base Excess ABG Hemoglobin ABG Oxyhemoglobin ABG Sodium ABG Potassium ABG Chloride ABG Glucose Oxyhemoglobin Sodium Potassium Chloride Carbon Dioxide BUN Creatinine Glucose POC Glucose 143 H 164 H 221 H Lactic Acid Calcium Magnesium Ferritin Total Bilirubin Direct Bilirubin AST ALT Alkaline Phosphatase Lactate Dehydrogenase C-Reactive Protein Total Protein Albumin Triglycerides Arterial Blood Glucose Arterial Blood Ionized Calcium Urine WBC (Auto) Coronavirus (PCR) SARS-CoV-2 IgG Ab Crossmatch 05/29/20 05/29/20 05/29/20 04:15 05:33 12:34 WBC RBC Hgb Hct MCV MCH MCHC RDW Lymph % (Auto) Lymph # (Auto) Seg Neutrophils % Seg Neuts % (Manual) Lymphocytes % (Manual) Nucleated RBC % Seg Neutrophils # Seg Neutrophils # Man Lymphocytes # (Manual) Monocytes # (Manual) PT INR D-Dimer ABG pH 7.463 H POC ABG pCO2 56.3 H POC ABG pO2 81.2 L ABG pO2 ABG HCO3 ABG O2 Saturation ABG Base Excess ABG Hemoglobin ABG Oxyhemoglobin ABG Sodium ABG Potassium ABG Chloride 96.0 L ABG Glucose 194 H Oxyhemoglobin Sodium Potassium Chloride Carbon Dioxide BUN Creatinine Glucose POC Glucose 133 H 221 H Lactic Acid Calcium Magnesium Ferritin Total Bilirubin Direct Bilirubin AST ALT Alkaline Phosphatase Lactate Dehydrogenase C-Reactive Protein Total Protein Albumin Triglycerides Arterial Blood Glucose 194 H Arterial Blood Ionized Calcium 4.5 L Urine WBC (Auto) Coronavirus (PCR) SARS-CoV-2 IgG Ab Crossmatch 05/29/20 05/30/20 05/30/20 18:07 00:12 05:38 WBC RBC Hgb Hct MCV MCH MCHC RDW Lymph % (Auto) Lymph # (Auto) Seg Neutrophils % Seg Neuts % (Manual) Lymphocytes % (Manual) Nucleated RBC % Seg Neutrophils # Seg Neutrophils # Man Lymphocytes # (Manual) Monocytes # (Manual) PT INR D-Dimer ABG pH POC ABG pCO2 POC ABG pO2 ABG pO2 ABG HCO3 ABG O2 Saturation ABG Base Excess ABG Hemoglobin ABG Oxyhemoglobin ABG Sodium ABG Potassium ABG Chloride ABG Glucose Oxyhemoglobin Sodium Potassium Chloride Carbon Dioxide BUN Creatinine Glucose POC Glucose 162 H 190 H 208 H Lactic Acid Calcium Magnesium Ferritin Total Bilirubin Direct Bilirubin AST ALT Alkaline Phosphatase Lactate Dehydrogenase C-Reactive Protein Total Protein Albumin Triglycerides Arterial Blood Glucose Arterial Blood Ionized Calcium Urine WBC (Auto) Coronavirus (PCR) SARS-CoV-2 IgG Ab Crossmatch 05/30/20 05/30/20 05/30/20 09:30 11:35 11:54 WBC 12.4 H RBC 3.48 L Hgb 11.3 L Hct 34.6 L MCV 99 H MCH 33 H MCHC RDW Lymph % (Auto) Lymph # (Auto) Seg Neutrophils % Seg Neuts % (Manual) Lymphocytes % (Manual) Nucleated RBC % Seg Neutrophils # Seg Neutrophils # Man Lymphocytes # (Manual) Monocytes # (Manual) PT INR D-Dimer ABG pH 7.455 H POC ABG pCO2 57.5 H POC ABG pO2 81.5 L ABG pO2 ABG HCO3 ABG O2 Saturation ABG Base Excess ABG Hemoglobin ABG Oxyhemoglobin ABG Sodium ABG Potassium ABG Chloride 96.0 L ABG Glucose 204 H Oxyhemoglobin Sodium Potassium Chloride Carbon Dioxide BUN Creatinine Glucose POC Glucose 183 H Lactic Acid Calcium Magnesium Ferritin Total Bilirubin Direct Bilirubin AST ALT Alkaline Phosphatase Lactate Dehydrogenase C-Reactive Protein Total Protein Albumin Triglycerides Arterial Blood Glucose 204 H Arterial Blood Ionized Calcium Urine WBC (Auto) Coronavirus (PCR) SARS-CoV-2 IgG Ab Crossmatch 05/30/20 05/31/20 05/31/20 18:01 00:10 03:22 WBC RBC Hgb Hct MCV MCH MCHC RDW Lymph % (Auto) Lymph # (Auto) Seg Neutrophils % Seg Neuts % (Manual) Lymphocytes % (Manual) Nucleated RBC % Seg Neutrophils # Seg Neutrophils # Man Lymphocytes # (Manual) Monocytes # (Manual) PT INR D-Dimer ABG pH POC ABG pCO2 60.4 H POC ABG pO2 71.5 L ABG pO2 ABG HCO3 ABG O2 Saturation ABG Base Excess ABG Hemoglobin ABG Oxyhemoglobin ABG Sodium ABG Potassium ABG Chloride 96.0 L ABG Glucose 169 H Oxyhemoglobin Sodium Potassium Chloride Carbon Dioxide BUN Creatinine Glucose POC Glucose 184 H 135 H Lactic Acid Calcium Magnesium Ferritin Total Bilirubin Direct Bilirubin AST ALT Alkaline Phosphatase Lactate Dehydrogenase C-Reactive Protein Total Protein Albumin Triglycerides Arterial Blood Glucose 169 H Arterial Blood Ionized Calcium 4.5 L Urine WBC (Auto) Coronavirus (PCR) SARS-CoV-2 IgG Ab Crossmatch 05/31/20 05/31/20 05/31/20 05:24 11:18 14:41 WBC RBC Hgb Hct MCV MCH MCHC RDW Lymph % (Auto) Lymph # (Auto) Seg Neutrophils % Seg Neuts % (Manual) Lymphocytes % (Manual) Nucleated RBC % Seg Neutrophils # Seg Neutrophils # Man Lymphocytes # (Manual) Monocytes # (Manual) PT INR D-Dimer ABG pH POC ABG pCO2 POC ABG pO2 ABG pO2 ABG HCO3 ABG O2 Saturation ABG Base Excess ABG Hemoglobin ABG Oxyhemoglobin ABG Sodium ABG Potassium ABG Chloride ABG Glucose Oxyhemoglobin Sodium Potassium Chloride 96.8 L Carbon Dioxide 37 H BUN 31 H Creatinine 0.6 L Glucose 213 H POC Glucose 164 H 208 H Lactic Acid Calcium Magnesium Ferritin Total Bilirubin Direct Bilirubin AST ALT Alkaline Phosphatase Lactate Dehydrogenase C-Reactive Protein Total Protein Albumin Triglycerides Arterial Blood Glucose Arterial Blood Ionized Calcium Urine WBC (Auto) Coronavirus (PCR) SARS-CoV-2 IgG Ab Crossmatch 05/31/20 05/31/20 06/01/20 17:37 23:47 03:48 WBC RBC Hgb Hct MCV MCH MCHC RDW Lymph % (Auto) Lymph # (Auto) Seg Neutrophils % Seg Neuts % (Manual) Lymphocytes % (Manual) Nucleated RBC % Seg Neutrophils # Seg Neutrophils # Man Lymphocytes # (Manual) Monocytes # (Manual) PT INR D-Dimer ABG pH POC ABG pCO2 59.7 H POC ABG pO2 73.9 L ABG pO2 ABG HCO3 ABG O2 Saturation ABG Base Excess ABG Hemoglobin ABG Oxyhemoglobin ABG Sodium ABG Potassium ABG Chloride 95.0 L ABG Glucose 256 H Oxyhemoglobin Sodium Potassium Chloride Carbon Dioxide BUN Creatinine Glucose POC Glucose 168 H 178 H Lactic Acid Calcium Magnesium Ferritin Total Bilirubin Direct Bilirubin AST ALT Alkaline Phosphatase Lactate Dehydrogenase C-Reactive Protein Total Protein Albumin Triglycerides Arterial Blood Glucose 256 H Arterial Blood Ionized Calcium Urine WBC (Auto) Coronavirus (PCR) SARS-CoV-2 IgG Ab Crossmatch 06/01/20 06/01/20 06/01/20 05:01 07:47 07:47 WBC 14.4 H RBC 3.46 L Hgb 11.1 L Hct 34.3 L MCV 99 H MCH MCHC RDW Lymph % (Auto) Lymph # (Auto) Seg Neutrophils % Seg Neuts % (Manual) 86.0 H Lymphocytes % (Manual) 9.0 L Nucleated RBC % Seg Neutrophils # Seg Neutrophils # Man 12.4 H Lymphocytes # (Manual) Monocytes # (Manual) PT INR D-Dimer ABG pH POC ABG pCO2 POC ABG pO2 ABG pO2 ABG HCO3 ABG O2 Saturation ABG Base Excess ABG Hemoglobin ABG Oxyhemoglobin ABG Sodium ABG Potassium ABG Chloride ABG Glucose Oxyhemoglobin Sodium Potassium Chloride Carbon Dioxide BUN Creatinine Glucose POC Glucose 197 H Lactic Acid Calcium Magnesium Ferritin Total Bilirubin Direct Bilirubin AST ALT Alkaline Phosphatase Lactate Dehydrogenase C-Reactive Protein Total Protein Albumin Triglycerides 244 H Arterial Blood Glucose Arterial Blood Ionized Calcium Urine WBC (Auto) Coronavirus (PCR) SARS-CoV-2 IgG Ab Crossmatch 06/01/20 06/01/20 06/01/20 07:47 11:46 18:15 WBC RBC Hgb Hct MCV MCH MCHC RDW Lymph % (Auto) Lymph # (Auto) Seg Neutrophils % Seg Neuts % (Manual) Lymphocytes % (Manual) Nucleated RBC % Seg Neutrophils # Seg Neutrophils # Man Lymphocytes # (Manual) Monocytes # (Manual) PT INR D-Dimer ABG pH POC ABG pCO2 POC ABG pO2 ABG pO2 ABG HCO3 ABG O2 Saturation ABG Base Excess ABG Hemoglobin ABG Oxyhemoglobin ABG Sodium ABG Potassium ABG Chloride ABG Glucose Oxyhemoglobin Sodium Potassium Chloride 95.4 L Carbon Dioxide 35 H BUN 30 H Creatinine 0.5 L Glucose 214 H POC Glucose 181 H 221 H Lactic Acid Calcium Magnesium Ferritin Total Bilirubin Direct Bilirubin AST 54 H ALT 235 H Alkaline Phosphatase Lactate Dehydrogenase C-Reactive Protein Total Protein Albumin 2.9 L Triglycerides Arterial Blood Glucose Arterial Blood Ionized Calcium Urine WBC (Auto) Coronavirus (PCR) SARS-CoV-2 IgG Ab Crossmatch 06/01/20 06/02/20 06/02/20 23:12 04:00 05:31 WBC RBC Hgb Hct MCV MCH MCHC RDW Lymph % (Auto) Lymph # (Auto) Seg Neutrophils % Seg Neuts % (Manual) Lymphocytes % (Manual) Nucleated RBC % Seg Neutrophils # Seg Neutrophils # Man Lymphocytes # (Manual) Monocytes # (Manual) PT INR D-Dimer ABG pH 7.465 H POC ABG pCO2 POC ABG pO2 ABG pO2 203.4 H ABG HCO3 41.2 H ABG O2 Saturation 99.3 H ABG Base Excess 15.1 H ABG Hemoglobin 11.5 L ABG Oxyhemoglobin ABG Sodium ABG Potassium ABG Chloride ABG Glucose Oxyhemoglobin Sodium Potassium Chloride Carbon Dioxide BUN Creatinine Glucose POC Glucose 197 H 184 H Lactic Acid Calcium Magnesium Ferritin Total Bilirubin Direct Bilirubin AST ALT Alkaline Phosphatase Lactate Dehydrogenase C-Reactive Protein Total Protein Albumin Triglycerides Arterial Blood Glucose Arterial Blood Ionized Calcium Urine WBC (Auto) Coronavirus (PCR) SARS-CoV-2 IgG Ab Crossmatch 06/02/20 06/02/20 06/02/20 11:49 18:06 23:00 WBC RBC Hgb Hct MCV MCH MCHC RDW Lymph % (Auto) Lymph # (Auto) Seg Neutrophils % Seg Neuts % (Manual) Lymphocytes % (Manual) Nucleated RBC % Seg Neutrophils # Seg Neutrophils # Man Lymphocytes # (Manual) Monocytes # (Manual) PT INR D-Dimer ABG pH POC ABG pCO2 POC ABG pO2 ABG pO2 ABG HCO3 ABG O2 Saturation ABG Base Excess ABG Hemoglobin ABG Oxyhemoglobin ABG Sodium ABG Potassium ABG Chloride ABG Glucose Oxyhemoglobin Sodium Potassium Chloride Carbon Dioxide BUN Creatinine Glucose POC Glucose 195 H 177 H 228 H Lactic Acid Calcium Magnesium Ferritin Total Bilirubin Direct Bilirubin AST ALT Alkaline Phosphatase Lactate Dehydrogenase C-Reactive Protein Total Protein Albumin Triglycerides Arterial Blood Glucose Arterial Blood Ionized Calcium Urine WBC (Auto) Coronavirus (PCR) SARS-CoV-2 IgG Ab Crossmatch 06/03/20 06/03/20 06/03/20 03:58 05:19 12:21 WBC RBC Hgb Hct MCV MCH MCHC RDW Lymph % (Auto) Lymph # (Auto) Seg Neutrophils % Seg Neuts % (Manual) Lymphocytes % (Manual) Nucleated RBC % Seg Neutrophils # Seg Neutrophils # Man Lymphocytes # (Manual) Monocytes # (Manual) PT INR D-Dimer ABG pH POC ABG pCO2 POC ABG pO2 ABG pO2 171.0 H ABG HCO3 42.8 H ABG O2 Saturation ABG Base Excess 15.6 H ABG Hemoglobin 12.3 L ABG Oxyhemoglobin ABG Sodium ABG Potassium ABG Chloride ABG Glucose Oxyhemoglobin Sodium Potassium Chloride Carbon Dioxide BUN Creatinine Glucose POC Glucose 122 H 207 H Lactic Acid Calcium Magnesium Ferritin Total Bilirubin Direct Bilirubin AST ALT Alkaline Phosphatase Lactate Dehydrogenase C-Reactive Protein Total Protein Albumin Triglycerides Arterial Blood Glucose Arterial Blood Ionized Calcium Urine WBC (Auto) Coronavirus (PCR) SARS-CoV-2 IgG Ab Crossmatch 06/03/20 06/03/20 06/04/20 17:27 23:50 03:55 WBC RBC Hgb Hct MCV MCH MCHC RDW Lymph % (Auto) Lymph # (Auto) Seg Neutrophils % Seg Neuts % (Manual) Lymphocytes % (Manual) Nucleated RBC % Seg Neutrophils # Seg Neutrophils # Man Lymphocytes # (Manual) Monocytes # (Manual) PT INR D-Dimer ABG pH POC ABG pCO2 POC ABG pO2 ABG pO2 117.2 H ABG HCO3 42.4 H ABG O2 Saturation ABG Base Excess 15.3 H ABG Hemoglobin 10.5 L ABG Oxyhemoglobin ABG Sodium ABG Potassium ABG Chloride ABG Glucose Oxyhemoglobin Sodium Potassium Chloride Carbon Dioxide BUN Creatinine Glucose POC Glucose 157 H 214 H Lactic Acid Calcium Magnesium Ferritin Total Bilirubin Direct Bilirubin AST ALT Alkaline Phosphatase Lactate Dehydrogenase C-Reactive Protein Total Protein Albumin Triglycerides Arterial Blood Glucose Arterial Blood Ionized Calcium Urine WBC (Auto) Coronavirus (PCR) SARS-CoV-2 IgG Ab Crossmatch 06/04/20 06/04/20 06/04/20 05:49 11:41 17:30 WBC RBC Hgb Hct MCV MCH MCHC RDW Lymph % (Auto) Lymph # (Auto) Seg Neutrophils % Seg Neuts % (Manual) Lymphocytes % (Manual) Nucleated RBC % Seg Neutrophils # Seg Neutrophils # Man Lymphocytes # (Manual) Monocytes # (Manual) PT INR D-Dimer ABG pH POC ABG pCO2 POC ABG pO2 ABG pO2 ABG HCO3 ABG O2 Saturation ABG Base Excess ABG Hemoglobin ABG Oxyhemoglobin ABG Sodium ABG Potassium ABG Chloride ABG Glucose Oxyhemoglobin Sodium Potassium Chloride Carbon Dioxide BUN Creatinine Glucose POC Glucose 149 H 233 H 156 H Lactic Acid Calcium Magnesium Ferritin Total Bilirubin Direct Bilirubin AST ALT Alkaline Phosphatase Lactate Dehydrogenase C-Reactive Protein Total Protein Albumin Triglycerides Arterial Blood Glucose Arterial Blood Ionized Calcium Urine WBC (Auto) Coronavirus (PCR) SARS-CoV-2 IgG Ab Crossmatch 06/04/20 06/04/20 06/04/20 19:01 20:53 23:41 WBC RBC 3.18 L Hgb 10.8 L Hct 31.8 L MCV 100 H MCH 34 H MCHC RDW Lymph % (Auto) Lymph # (Auto) Seg Neutrophils % Seg Neuts % (Manual) 86.0 H Lymphocytes % (Manual) 10.0 L Nucleated RBC % 1.0 H Seg Neutrophils # Seg Neutrophils # Man 8.5 H Lymphocytes # (Manual) 1.0 L Monocytes # (Manual) PT INR D-Dimer ABG pH POC ABG pCO2 POC ABG pO2 ABG pO2 ABG HCO3 ABG O2 Saturation ABG Base Excess ABG Hemoglobin ABG Oxyhemoglobin ABG Sodium ABG Potassium ABG Chloride ABG Glucose Oxyhemoglobin Sodium Potassium 3.4 L D Chloride 96.5 L Carbon Dioxide 41 H* BUN 27 H Creatinine 0.5 L Glucose 173 H POC Glucose 217 H Lactic Acid Calcium Magnesium Ferritin Total Bilirubin Direct Bilirubin AST ALT Alkaline Phosphatase Lactate Dehydrogenase C-Reactive Protein Total Protein Albumin Triglycerides Arterial Blood Glucose Arterial Blood Ionized Calcium Urine WBC (Auto) Coronavirus (PCR) SARS-CoV-2 IgG Ab Crossmatch 06/05/20 06/05/20 06/05/20 06:05 11:54 12:35 WBC RBC Hgb Hct MCV MCH MCHC RDW Lymph % (Auto) Lymph # (Auto) Seg Neutrophils % Seg Neuts % (Manual) Lymphocytes % (Manual) Nucleated RBC % Seg Neutrophils # Seg Neutrophils # Man Lymphocytes # (Manual) Monocytes # (Manual) PT INR D-Dimer ABG pH POC ABG pCO2 POC ABG pO2 ABG pO2 127.9 H ABG HCO3 41.1 H ABG O2 Saturation ABG Base Excess 13.0 H ABG Hemoglobin 13.4 L ABG Oxyhemoglobin ABG Sodium ABG Potassium ABG Chloride ABG Glucose Oxyhemoglobin Sodium Potassium Chloride Carbon Dioxide BUN Creatinine Glucose POC Glucose 137 H 211 H Lactic Acid Calcium Magnesium Ferritin Total Bilirubin Direct Bilirubin AST ALT Alkaline Phosphatase Lactate Dehydrogenase C-Reactive Protein Total Protein Albumin Triglycerides Arterial Blood Glucose Arterial Blood Ionized Calcium Urine WBC (Auto) Coronavirus (PCR) SARS-CoV-2 IgG Ab Crossmatch 06/05/20 06/05/20 06/06/20 17:03 23:49 04:42 WBC RBC Hgb Hct MCV MCH MCHC RDW Lymph % (Auto) Lymph # (Auto) Seg Neutrophils % Seg Neuts % (Manual) Lymphocytes % (Manual) Nucleated RBC % Seg Neutrophils # Seg Neutrophils # Man Lymphocytes # (Manual) Monocytes # (Manual) PT INR D-Dimer ABG pH POC ABG pCO2 56.1 H POC ABG pO2 52.5 L ABG pO2 ABG HCO3 ABG O2 Saturation ABG Base Excess ABG Hemoglobin 11.7 L ABG Oxyhemoglobin ABG Sodium ABG Potassium 3.3 L ABG Chloride 95.0 L ABG Glucose 156 H Oxyhemoglobin Sodium Potassium Chloride Carbon Dioxide BUN Creatinine Glucose POC Glucose 159 H 194 H Lactic Acid Calcium Magnesium Ferritin Total Bilirubin Direct Bilirubin AST ALT Alkaline Phosphatase Lactate Dehydrogenase C-Reactive Protein Total Protein Albumin Triglycerides Arterial Blood Glucose 156 H Arterial Blood Ionized Calcium Urine WBC (Auto) Coronavirus (PCR) SARS-CoV-2 IgG Ab Crossmatch 06/06/20 06/06/20 06/06/20 05:57 12:06 17:38 WBC RBC Hgb Hct MCV MCH MCHC RDW Lymph % (Auto) Lymph # (Auto) Seg Neutrophils % Seg Neuts % (Manual) Lymphocytes % (Manual) Nucleated RBC % Seg Neutrophils # Seg Neutrophils # Man Lymphocytes # (Manual) Monocytes # (Manual) PT INR D-Dimer ABG pH POC ABG pCO2 POC ABG pO2 ABG pO2 ABG HCO3 ABG O2 Saturation ABG Base Excess ABG Hemoglobin ABG Oxyhemoglobin ABG Sodium ABG Potassium ABG Chloride ABG Glucose Oxyhemoglobin Sodium Potassium Chloride Carbon Dioxide BUN Creatinine Glucose POC Glucose 144 H 230 H 162 H Lactic Acid Calcium Magnesium Ferritin Total Bilirubin Direct Bilirubin AST ALT Alkaline Phosphatase Lactate Dehydrogenase C-Reactive Protein Total Protein Albumin Triglycerides Arterial Blood Glucose Arterial Blood Ionized Calcium Urine WBC (Auto) Coronavirus (PCR) SARS-CoV-2 IgG Ab Crossmatch 06/06/20 06/07/20 06/07/20 23:50 04:34 06:03 WBC RBC Hgb Hct MCV MCH MCHC RDW Lymph % (Auto) Lymph # (Auto) Seg Neutrophils % Seg Neuts % (Manual) Lymphocytes % (Manual) Nucleated RBC % Seg Neutrophils # Seg Neutrophils # Man Lymphocytes # (Manual) Monocytes # (Manual) PT INR D-Dimer ABG pH 7.511 H POC ABG pCO2 53.5 H POC ABG pO2 114.5 H ABG pO2 ABG HCO3 ABG O2 Saturation ABG Base Excess ABG Hemoglobin 9.4 L ABG Oxyhemoglobin ABG Sodium 134.5 L ABG Potassium ABG Chloride 94.0 L ABG Glucose 186 H Oxyhemoglobin Sodium Potassium Chloride Carbon Dioxide BUN Creatinine Glucose POC Glucose 181 H 155 H Lactic Acid Calcium Magnesium Ferritin Total Bilirubin Direct Bilirubin AST ALT Alkaline Phosphatase Lactate Dehydrogenase C-Reactive Protein Total Protein Albumin Triglycerides Arterial Blood Glucose 186 H Arterial Blood Ionized Calcium 4.5 L Urine WBC (Auto) Coronavirus (PCR) SARS-CoV-2 IgG Ab Crossmatch 06/07/20 06/07/20 06/07/20 13:41 14:58 14:58 WBC RBC 2.72 L Hgb 9.3 L Hct 27.2 L MCV 100 H MCH 34 H MCHC RDW Lymph % (Auto) Lymph # (Auto) Seg Neutrophils % Seg Neuts % (Manual) Lymphocytes % (Manual) Nucleated RBC % Seg Neutrophils # Seg Neutrophils # Man Lymphocytes # (Manual) Monocytes # (Manual) PT INR D-Dimer ABG pH POC ABG pCO2 POC ABG pO2 ABG pO2 ABG HCO3 ABG O2 Saturation ABG Base Excess ABG Hemoglobin ABG Oxyhemoglobin ABG Sodium ABG Potassium ABG Chloride ABG Glucose Oxyhemoglobin Sodium Potassium Chloride 93.5 L Carbon Dioxide 39 H BUN 22 H Creatinine 0.4 L Glucose 188 H POC Glucose 201 H Lactic Acid Calcium Magnesium Ferritin Total Bilirubin Direct Bilirubin AST 61 H ALT 273 H Alkaline Phosphatase Lactate Dehydrogenase C-Reactive Protein Total Protein 5.9 L Albumin 2.7 L Triglycerides Arterial Blood Glucose Arterial Blood Ionized Calcium Urine WBC (Auto) Coronavirus (PCR) SARS-CoV-2 IgG Ab Crossmatch 06/07/20 06/08/20 06/08/20 23:18 05:31 12:07 WBC RBC Hgb Hct MCV MCH MCHC RDW Lymph % (Auto) Lymph # (Auto) Seg Neutrophils % Seg Neuts % (Manual) Lymphocytes % (Manual) Nucleated RBC % Seg Neutrophils # Seg Neutrophils # Man Lymphocytes # (Manual) Monocytes # (Manual) PT INR D-Dimer ABG pH POC ABG pCO2 POC ABG pO2 ABG pO2 ABG HCO3 ABG O2 Saturation ABG Base Excess ABG Hemoglobin ABG Oxyhemoglobin ABG Sodium ABG Potassium ABG Chloride ABG Glucose Oxyhemoglobin Sodium Potassium Chloride Carbon Dioxide BUN Creatinine Glucose POC Glucose 214 H 129 H 179 H Lactic Acid Calcium Magnesium Ferritin Total Bilirubin Direct Bilirubin AST ALT Alkaline Phosphatase Lactate Dehydrogenase C-Reactive Protein Total Protein Albumin Triglycerides Arterial Blood Glucose Arterial Blood Ionized Calcium Urine WBC (Auto) Coronavirus (PCR) SARS-CoV-2 IgG Ab Crossmatch 06/08/20 06/08/20 06/09/20 18:18 23:35 05:42 WBC RBC Hgb Hct MCV MCH MCHC RDW Lymph % (Auto) Lymph # (Auto) Seg Neutrophils % Seg Neuts % (Manual) Lymphocytes % (Manual) Nucleated RBC % Seg Neutrophils # Seg Neutrophils # Man Lymphocytes # (Manual) Monocytes # (Manual) PT INR D-Dimer ABG pH POC ABG pCO2 POC ABG pO2 ABG pO2 ABG HCO3 ABG O2 Saturation ABG Base Excess ABG Hemoglobin ABG Oxyhemoglobin ABG Sodium ABG Potassium ABG Chloride ABG Glucose Oxyhemoglobin Sodium Potassium Chloride Carbon Dioxide BUN Creatinine Glucose POC Glucose 172 H 177 H 137 H Lactic Acid Calcium Magnesium Ferritin Total Bilirubin Direct Bilirubin AST ALT Alkaline Phosphatase Lactate Dehydrogenase C-Reactive Protein Total Protein Albumin Triglycerides Arterial Blood Glucose Arterial Blood Ionized Calcium Urine WBC (Auto) Coronavirus (PCR) SARS-CoV-2 IgG Ab Crossmatch 06/09/20 06/09/20 06/09/20 06:20 07:55 07:55 WBC 12.4 H RBC 3.26 L Hgb 11.1 L Hct 33.4 L D MCV 102 H MCH 34 H MCHC RDW Lymph % (Auto) Lymph # (Auto) Seg Neutrophils % Seg Neuts % (Manual) Lymphocytes % (Manual) Nucleated RBC % Seg Neutrophils # Seg Neutrophils # Man Lymphocytes # (Manual) Monocytes # (Manual) PT INR D-Dimer ABG pH 7.466 H POC ABG pCO2 50.7 H POC ABG pO2 53.0 L ABG pO2 ABG HCO3 ABG O2 Saturation ABG Base Excess ABG Hemoglobin ABG Oxyhemoglobin ABG Sodium ABG Potassium 2.9 L ABG Chloride 93.0 L ABG Glucose 138 H Oxyhemoglobin Sodium Potassium 3.0 L Chloride 92.3 L Carbon Dioxide 37 H BUN 21 H Creatinine 0.6 L Glucose 120 H POC Glucose Lactic Acid Calcium Magnesium Ferritin Total Bilirubin Direct Bilirubin AST ALT Alkaline Phosphatase Lactate Dehydrogenase C-Reactive Protein Total Protein Albumin Triglycerides Arterial Blood Glucose 138 H Arterial Blood Ionized Calcium 4.5 L Urine WBC (Auto) Coronavirus (PCR) SARS-CoV-2 IgG Ab Crossmatch 06/09/20 06/09/20 06/10/20 11:22 18:32 04:46 WBC RBC Hgb Hct MCV MCH MCHC RDW Lymph % (Auto) Lymph # (Auto) Seg Neutrophils % Seg Neuts % (Manual) Lymphocytes % (Manual) Nucleated RBC % Seg Neutrophils # Seg Neutrophils # Man Lymphocytes # (Manual) Monocytes # (Manual) PT INR D-Dimer ABG pH 7.501 H POC ABG pCO2 POC ABG pO2 126.5 H ABG pO2 ABG HCO3 ABG O2 Saturation ABG Base Excess ABG Hemoglobin 10.3 L ABG Oxyhemoglobin ABG Sodium ABG Potassium ABG Chloride ABG Glucose 220 H Oxyhemoglobin Sodium Potassium Chloride Carbon Dioxide BUN Creatinine Glucose POC Glucose 117 H 121 H Lactic Acid Calcium Magnesium Ferritin Total Bilirubin Direct Bilirubin AST ALT Alkaline Phosphatase Lactate Dehydrogenase C-Reactive Protein Total Protein Albumin Triglycerides Arterial Blood Glucose 220 H Arterial Blood Ionized Calcium Urine WBC (Auto) Coronavirus (PCR) SARS-CoV-2 IgG Ab Crossmatch 06/10/20 06/10/20 06/10/20 05:30 09:38 12:03 WBC RBC Hgb Hct MCV MCH MCHC RDW Lymph % (Auto) Lymph # (Auto) Seg Neutrophils % Seg Neuts % (Manual) Lymphocytes % (Manual) Nucleated RBC % Seg Neutrophils # Seg Neutrophils # Man Lymphocytes # (Manual) Monocytes # (Manual) PT INR D-Dimer ABG pH POC ABG pCO2 POC ABG pO2 ABG pO2 ABG HCO3 ABG O2 Saturation ABG Base Excess ABG Hemoglobin ABG Oxyhemoglobin ABG Sodium ABG Potassium ABG Chloride ABG Glucose Oxyhemoglobin Sodium Potassium Chloride Carbon Dioxide BUN Creatinine Glucose POC Glucose 181 H 204 H Lactic Acid Calcium Magnesium Ferritin Total Bilirubin Direct Bilirubin AST ALT Alkaline Phosphatase Lactate Dehydrogenase C-Reactive Protein Total Protein Albumin Triglycerides 738 H Arterial Blood Glucose Arterial Blood Ionized Calcium Urine WBC (Auto) Coronavirus (PCR) SARS-CoV-2 IgG Ab Crossmatch 06/10/20 06/11/20 06/11/20 17:17 00:04 04:38 WBC RBC Hgb Hct MCV MCH MCHC RDW Lymph % (Auto) Lymph # (Auto) Seg Neutrophils % Seg Neuts % (Manual) Lymphocytes % (Manual) Nucleated RBC % Seg Neutrophils # Seg Neutrophils # Man Lymphocytes # (Manual) Monocytes # (Manual) PT INR D-Dimer ABG pH 7.479 H POC ABG pCO2 POC ABG pO2 76.7 L ABG pO2 ABG HCO3 ABG O2 Saturation ABG Base Excess ABG Hemoglobin 9.8 L ABG Oxyhemoglobin ABG Sodium 135.8 L ABG Potassium ABG Chloride ABG Glucose 238 H Oxyhemoglobin Sodium Potassium Chloride Carbon Dioxide BUN Creatinine Glucose POC Glucose 156 H 178 H Lactic Acid Calcium Magnesium Ferritin Total Bilirubin Direct Bilirubin AST ALT Alkaline Phosphatase Lactate Dehydrogenase C-Reactive Protein Total Protein Albumin Triglycerides Arterial Blood Glucose 238 H Arterial Blood Ionized Calcium Urine WBC (Auto) Coronavirus (PCR) SARS-CoV-2 IgG Ab Crossmatch 06/11/20 06/11/20 06/11/20 05:21 06:52 11:50 WBC RBC Hgb Hct MCV MCH MCHC RDW Lymph % (Auto) Lymph # (Auto) Seg Neutrophils % Seg Neuts % (Manual) Lymphocytes % (Manual) Nucleated RBC % Seg Neutrophils # Seg Neutrophils # Man Lymphocytes # (Manual) Monocytes # (Manual) PT INR D-Dimer ABG pH POC ABG pCO2 POC ABG pO2 ABG pO2 ABG HCO3 ABG O2 Saturation ABG Base Excess ABG Hemoglobin ABG Oxyhemoglobin ABG Sodium ABG Potassium ABG Chloride ABG Glucose Oxyhemoglobin Sodium Potassium Chloride Carbon Dioxide BUN Creatinine Glucose POC Glucose 215 H 187 H Lactic Acid Calcium Magnesium Ferritin Total Bilirubin Direct Bilirubin AST ALT Alkaline Phosphatase Lactate Dehydrogenase C-Reactive Protein Total Protein Albumin Triglycerides 331 H Arterial Blood Glucose Arterial Blood Ionized Calcium Urine WBC (Auto) Coronavirus (PCR) SARS-CoV-2 IgG Ab Crossmatch 06/11/20 06/11/20 06/12/20 17:49 23:35 04:52 WBC RBC Hgb Hct MCV MCH MCHC RDW Lymph % (Auto) Lymph # (Auto) Seg Neutrophils % Seg Neuts % (Manual) Lymphocytes % (Manual) Nucleated RBC % Seg Neutrophils # Seg Neutrophils # Man Lymphocytes # (Manual) Monocytes # (Manual) PT INR D-Dimer ABG pH 7.486 H POC ABG pCO2 POC ABG pO2 ABG pO2 ABG HCO3 ABG O2 Saturation ABG Base Excess ABG Hemoglobin 9.4 L ABG Oxyhemoglobin ABG Sodium ABG Potassium 3.2 L ABG Chloride ABG Glucose 209 H Oxyhemoglobin Sodium Potassium Chloride Carbon Dioxide BUN Creatinine Glucose POC Glucose 211 H 200 H Lactic Acid Calcium Magnesium Ferritin Total Bilirubin Direct Bilirubin AST ALT Alkaline Phosphatase Lactate Dehydrogenase C-Reactive Protein Total Protein Albumin Triglycerides Arterial Blood Glucose 209 H Arterial Blood Ionized Calcium Urine WBC (Auto) Coronavirus (PCR) SARS-CoV-2 IgG Ab Crossmatch 06/12/20 06/12/20 06/12/20 05:13 11:47 18:33 WBC RBC Hgb Hct MCV MCH MCHC RDW Lymph % (Auto) Lymph # (Auto) Seg Neutrophils % Seg Neuts % (Manual) Lymphocytes % (Manual) Nucleated RBC % Seg Neutrophils # Seg Neutrophils # Man Lymphocytes # (Manual) Monocytes # (Manual) PT INR D-Dimer ABG pH POC ABG pCO2 POC ABG pO2 ABG pO2 ABG HCO3 ABG O2 Saturation ABG Base Excess ABG Hemoglobin ABG Oxyhemoglobin ABG Sodium ABG Potassium ABG Chloride ABG Glucose Oxyhemoglobin Sodium Potassium Chloride Carbon Dioxide BUN Creatinine Glucose POC Glucose 174 H 214 H 194 H Lactic Acid Calcium Magnesium Ferritin Total Bilirubin Direct Bilirubin AST ALT Alkaline Phosphatase Lactate Dehydrogenase C-Reactive Protein Total Protein Albumin Triglycerides Arterial Blood Glucose Arterial Blood Ionized Calcium Urine WBC (Auto) Coronavirus (PCR) SARS-CoV-2 IgG Ab Crossmatch 06/12/20 06/13/20 06/13/20 23:49 05:41 12:30 WBC RBC Hgb Hct MCV MCH MCHC RDW Lymph % (Auto) Lymph # (Auto) Seg Neutrophils % Seg Neuts % (Manual) Lymphocytes % (Manual) Nucleated RBC % Seg Neutrophils # Seg Neutrophils # Man Lymphocytes # (Manual) Monocytes # (Manual) PT INR D-Dimer ABG pH POC ABG pCO2 POC ABG pO2 ABG pO2 ABG HCO3 ABG O2 Saturation ABG Base Excess ABG Hemoglobin ABG Oxyhemoglobin ABG Sodium ABG Potassium ABG Chloride ABG Glucose Oxyhemoglobin Sodium Potassium Chloride Carbon Dioxide BUN Creatinine Glucose POC Glucose 160 H 150 H 181 H Lactic Acid Calcium Magnesium Ferritin Total Bilirubin Direct Bilirubin AST ALT Alkaline Phosphatase Lactate Dehydrogenase C-Reactive Protein Total Protein Albumin Triglycerides Arterial Blood Glucose Arterial Blood Ionized Calcium Urine WBC (Auto) Coronavirus (PCR) SARS-CoV-2 IgG Ab Crossmatch 06/13/20 06/13/20 06/13/20 14:14 17:48 23:27 WBC 12.8 H RBC 2.33 L Hgb 8.0 L Hct 23.3 L MCV 100 H MCH 34 H MCHC RDW 15.7 H Lymph % (Auto) Lymph # (Auto) Seg Neutrophils % Seg Neuts % (Manual) 85.0 H Lymphocytes % (Manual) 10.0 L Nucleated RBC % Seg Neutrophils # Seg Neutrophils # Man 10.9 H Lymphocytes # (Manual) Monocytes # (Manual) PT INR D-Dimer ABG pH POC ABG pCO2 POC ABG pO2 ABG pO2 ABG HCO3 ABG O2 Saturation ABG Base Excess ABG Hemoglobin ABG Oxyhemoglobin ABG Sodium ABG Potassium ABG Chloride ABG Glucose Oxyhemoglobin Sodium Potassium Chloride Carbon Dioxide BUN Creatinine Glucose POC Glucose 173 H 154 H Lactic Acid Calcium Magnesium Ferritin Total Bilirubin Direct Bilirubin AST ALT Alkaline Phosphatase Lactate Dehydrogenase C-Reactive Protein Total Protein Albumin Triglycerides Arterial Blood Glucose Arterial Blood Ionized Calcium Urine WBC (Auto) Coronavirus (PCR) SARS-CoV-2 IgG Ab Crossmatch 06/14/20 06/14/20 06/14/20 03:58 05:21 07:15 WBC 26.2 H RBC 2.97 L Hgb 9.7 L Hct 29.9 L D MCV 101 H MCH 33 H MCHC RDW 15.3 H Lymph % (Auto) Lymph # (Auto) Seg Neutrophils % Seg Neuts % (Manual) 79.0 H Lymphocytes % (Manual) 5.0 L Nucleated RBC % 3.0 H Seg Neutrophils # Seg Neutrophils # Man 20.7 H Lymphocytes # (Manual) Monocytes # (Manual) 1.3 H PT INR D-Dimer ABG pH POC ABG pCO2 51.5 H POC ABG pO2 70.0 L ABG pO2 ABG HCO3 ABG O2 Saturation ABG Base Excess ABG Hemoglobin 10.1 L ABG Oxyhemoglobin ABG Sodium 131.5 L ABG Potassium 3.1 L ABG Chloride 93.0 L ABG Glucose 188 H Oxyhemoglobin Sodium Potassium Chloride Carbon Dioxide BUN Creatinine Glucose POC Glucose 147 H Lactic Acid Calcium Magnesium Ferritin Total Bilirubin Direct Bilirubin AST ALT Alkaline Phosphatase Lactate Dehydrogenase C-Reactive Protein Total Protein Albumin Triglycerides Arterial Blood Glucose 188 H Arterial Blood Ionized Calcium Urine WBC (Auto) Coronavirus (PCR) SARS-CoV-2 IgG Ab Crossmatch 06/14/20 06/14/20 06/14/20 07:15 11:30 11:50 WBC RBC Hgb Hct MCV MCH MCHC RDW Lymph % (Auto) Lymph # (Auto) Seg Neutrophils % Seg Neuts % (Manual) Lymphocytes % (Manual) Nucleated RBC % Seg Neutrophils # Seg Neutrophils # Man Lymphocytes # (Manual) Monocytes # (Manual) PT INR D-Dimer ABG pH POC ABG pCO2 POC ABG pO2 ABG pO2 ABG HCO3 ABG O2 Saturation ABG Base Excess ABG Hemoglobin ABG Oxyhemoglobin ABG Sodium ABG Potassium ABG Chloride ABG Glucose Oxyhemoglobin Sodium 135 L Potassium 3.5 L Chloride 90.4 L Carbon Dioxide 38 H BUN Creatinine 0.5 L Glucose 190 H POC Glucose 176 H Lactic Acid Calcium Magnesium Ferritin 1496.0 H Total Bilirubin Direct Bilirubin AST ALT 81 H Alkaline Phosphatase Lactate Dehydrogenase C-Reactive Protein Total Protein Albumin 2.9 L Triglycerides Arterial Blood Glucose Arterial Blood Ionized Calcium Urine WBC (Auto) Coronavirus (PCR) SARS-CoV-2 IgG Ab Crossmatch 06/14/20 06/15/20 06/15/20 23:31 04:00 05:00 WBC RBC Hgb Hct MCV MCH MCHC RDW Lymph % (Auto) Lymph # (Auto) Seg Neutrophils % Seg Neuts % (Manual) Lymphocytes % (Manual) Nucleated RBC % Seg Neutrophils # Seg Neutrophils # Man Lymphocytes # (Manual) Monocytes # (Manual) PT INR D-Dimer ABG pH POC ABG pCO2 POC ABG pO2 ABG pO2 ABG HCO3 ABG O2 Saturation ABG Base Excess ABG Hemoglobin ABG Oxyhemoglobin ABG Sodium ABG Potassium ABG Chloride ABG Glucose Oxyhemoglobin Sodium 133 L Potassium Chloride 91.1 L Carbon Dioxide 34 H BUN Creatinine 0.4 L Glucose 159 H POC Glucose 200 H Lactic Acid Calcium Magnesium Ferritin Total Bilirubin 2.00 H Direct Bilirubin AST 47 H ALT 77 H Alkaline Phosphatase Lactate Dehydrogenase C-Reactive Protein Total Protein Albumin 2.6 L Triglycerides 152 H Arterial Blood Glucose Arterial Blood Ionized Calcium Urine WBC (Auto) Coronavirus (PCR) SARS-CoV-2 IgG Ab Crossmatch 06/15/20 06/15/20 06/15/20 05:35 06:27 11:38 WBC RBC Hgb Hct MCV MCH MCHC RDW Lymph % (Auto) Lymph # (Auto) Seg Neutrophils % Seg Neuts % (Manual) Lymphocytes % (Manual) Nucleated RBC % Seg Neutrophils # Seg Neutrophils # Man Lymphocytes # (Manual) Monocytes # (Manual) PT INR D-Dimer ABG pH POC ABG pCO2 61.0 H POC ABG pO2 67.9 L ABG pO2 ABG HCO3 ABG O2 Saturation ABG Base Excess ABG Hemoglobin 10.4 L ABG Oxyhemoglobin ABG Sodium 132.7 L ABG Potassium 3.3 L ABG Chloride 92.0 L ABG Glucose 158 H Oxyhemoglobin Sodium Potassium Chloride Carbon Dioxide BUN Creatinine Glucose POC Glucose 148 H 197 H Lactic Acid Calcium Magnesium Ferritin Total Bilirubin Direct Bilirubin AST ALT Alkaline Phosphatase Lactate Dehydrogenase C-Reactive Protein Total Protein Albumin Triglycerides Arterial Blood Glucose 158 H Arterial Blood Ionized Calcium Urine WBC (Auto) Coronavirus (PCR) SARS-CoV-2 IgG Ab Crossmatch 06/15/20 06/15/20 06/16/20 17:29 Unknown 00:01 WBC 20.7 H RBC 2.57 L Hgb 8.9 L Hct 25.8 L MCV 101 H MCH 35 H MCHC 35 H RDW 16.0 H Lymph % (Auto) Lymph # (Auto) Seg Neutrophils % Seg Neuts % (Manual) 83.0 H Lymphocytes % (Manual) 8.0 L Nucleated RBC % Seg Neutrophils # Seg Neutrophils # Man 17.2 H Lymphocytes # (Manual) Monocytes # (Manual) 1.2 H PT INR D-Dimer ABG pH POC ABG pCO2 POC ABG pO2 ABG pO2 ABG HCO3 ABG O2 Saturation ABG Base Excess ABG Hemoglobin ABG Oxyhemoglobin ABG Sodium ABG Potassium ABG Chloride ABG Glucose Oxyhemoglobin Sodium Potassium Chloride Carbon Dioxide BUN Creatinine Glucose POC Glucose 231 H 257 H Lactic Acid Calcium Magnesium Ferritin Total Bilirubin Direct Bilirubin AST ALT Alkaline Phosphatase Lactate Dehydrogenase C-Reactive Protein Total Protein Albumin Triglycerides Arterial Blood Glucose Arterial Blood Ionized Calcium Urine WBC (Auto) Coronavirus (PCR) SARS-CoV-2 IgG Ab Crossmatch 06/16/20 06/16/20 06/16/20 04:00 04:00 05:22 WBC 13.8 H RBC 2.03 L Hgb 7.6 L Hct 20.7 L MCV 102 H MCH 37 H MCHC 37 H RDW 16.2 H Lymph % (Auto) 4.4 L Lymph # (Auto) 0.6 L Seg Neutrophils % Seg Neuts % (Manual) Lymphocytes % (Manual) Nucleated RBC % Seg Neutrophils # 12.7 H Seg Neutrophils # Man Lymphocytes # (Manual) Monocytes # (Manual) PT INR D-Dimer ABG pH POC ABG pCO2 POC ABG pO2 ABG pO2 ABG HCO3 ABG O2 Saturation ABG Base Excess ABG Hemoglobin ABG Oxyhemoglobin ABG Sodium ABG Potassium ABG Chloride ABG Glucose Oxyhemoglobin Sodium 130 L Potassium Chloride 88.9 L Carbon Dioxide 36 H BUN Creatinine 0.3 L Glucose 276 H POC Glucose 250 H Lactic Acid Calcium Magnesium Ferritin Total Bilirubin Direct Bilirubin AST ALT Alkaline Phosphatase Lactate Dehydrogenase C-Reactive Protein Total Protein Albumin Triglycerides Arterial Blood Glucose Arterial Blood Ionized Calcium Urine WBC (Auto) Coronavirus (PCR) SARS-CoV-2 IgG Ab Crossmatch 06/16/20 06/16/20 06/17/20 12:44 18:18 00:39 WBC RBC Hgb Hct MCV MCH MCHC RDW Lymph % (Auto) Lymph # (Auto) Seg Neutrophils % Seg Neuts % (Manual) Lymphocytes % (Manual) Nucleated RBC % Seg Neutrophils # Seg Neutrophils # Man Lymphocytes # (Manual) Monocytes # (Manual) PT INR D-Dimer ABG pH POC ABG pCO2 POC ABG pO2 ABG pO2 ABG HCO3 ABG O2 Saturation ABG Base Excess ABG Hemoglobin ABG Oxyhemoglobin ABG Sodium ABG Potassium ABG Chloride ABG Glucose Oxyhemoglobin Sodium Potassium Chloride Carbon Dioxide BUN Creatinine Glucose POC Glucose 279 H 239 H 247 H Lactic Acid Calcium Magnesium Ferritin Total Bilirubin Direct Bilirubin AST ALT Alkaline Phosphatase Lactate Dehydrogenase C-Reactive Protein Total Protein Albumin Triglycerides Arterial Blood Glucose Arterial Blood Ionized Calcium Urine WBC (Auto) Coronavirus (PCR) SARS-CoV-2 IgG Ab Crossmatch 06/17/20 06/17/20 06/17/20 03:40 04:08 10:54 WBC RBC Hgb Hct MCV MCH MCHC RDW Lymph % (Auto) Lymph # (Auto) Seg Neutrophils % Seg Neuts % (Manual) Lymphocytes % (Manual) Nucleated RBC % Seg Neutrophils # Seg Neutrophils # Man Lymphocytes # (Manual) Monocytes # (Manual) PT INR D-Dimer ABG pH POC ABG pCO2 65.7 H POC ABG pO2 ABG pO2 ABG HCO3 ABG O2 Saturation ABG Base Excess ABG Hemoglobin 11.9 L ABG Oxyhemoglobin ABG Sodium ABG Potassium ABG Chloride 93.0 L ABG Glucose 244 H Oxyhemoglobin Sodium Potassium Chloride Carbon Dioxide BUN Creatinine Glucose POC Glucose 221 H 248 H Lactic Acid Calcium Magnesium Ferritin Total Bilirubin Direct Bilirubin AST ALT Alkaline Phosphatase Lactate Dehydrogenase C-Reactive Protein Total Protein Albumin Triglycerides Arterial Blood Glucose 244 H Arterial Blood Ionized Calcium Urine WBC (Auto) Coronavirus (PCR) SARS-CoV-2 IgG Ab Crossmatch 06/17/20 06/17/20 06/17/20 17:47 23:11 23:29 WBC RBC Hgb Hct MCV MCH MCHC RDW Lymph % (Auto) Lymph # (Auto) Seg Neutrophils % Seg Neuts % (Manual) Lymphocytes % (Manual) Nucleated RBC % Seg Neutrophils # Seg Neutrophils # Man Lymphocytes # (Manual) Monocytes # (Manual) PT INR D-Dimer ABG pH POC ABG pCO2 85.2 H POC ABG pO2 48.4 L ABG pO2 ABG HCO3 ABG O2 Saturation ABG Base Excess ABG Hemoglobin 8.0 L ABG Oxyhemoglobin ABG Sodium ABG Potassium ABG Chloride 95.0 L ABG Glucose 292 H Oxyhemoglobin Sodium Potassium Chloride Carbon Dioxide BUN Creatinine Glucose POC Glucose 245 H 252 H Lactic Acid Calcium Magnesium Ferritin Total Bilirubin Direct Bilirubin AST ALT Alkaline Phosphatase Lactate Dehydrogenase C-Reactive Protein Total Protein Albumin Triglycerides Arterial Blood Glucose 292 H Arterial Blood Ionized Calcium Urine WBC (Auto) Coronavirus (PCR) SARS-CoV-2 IgG Ab Crossmatch 06/18/20 06/18/20 06/18/20 03:14 05:34 11:47 WBC RBC Hgb Hct MCV MCH MCHC RDW Lymph % (Auto) Lymph # (Auto) Seg Neutrophils % Seg Neuts % (Manual) Lymphocytes % (Manual) Nucleated RBC % Seg Neutrophils # Seg Neutrophils # Man Lymphocytes # (Manual) Monocytes # (Manual) PT INR D-Dimer ABG pH POC ABG pCO2 65.4 H POC ABG pO2 160.7 H ABG pO2 ABG HCO3 ABG O2 Saturation ABG Base Excess ABG Hemoglobin 7.8 L ABG Oxyhemoglobin ABG Sodium ABG Potassium ABG Chloride 95.0 L ABG Glucose 251 H Oxyhemoglobin Sodium Potassium Chloride Carbon Dioxide BUN Creatinine Glucose POC Glucose 243 H 263 H Lactic Acid Calcium Magnesium Ferritin Total Bilirubin Direct Bilirubin AST ALT Alkaline Phosphatase Lactate Dehydrogenase C-Reactive Protein Total Protein Albumin Triglycerides Arterial Blood Glucose 251 H Arterial Blood Ionized Calcium Urine WBC (Auto) Coronavirus (PCR) SARS-CoV-2 IgG Ab Crossmatch 06/18/20 06/18/20 06/19/20 17:31 23:33 04:32 WBC RBC Hgb Hct MCV MCH MCHC RDW Lymph % (Auto) Lymph # (Auto) Seg Neutrophils % Seg Neuts % (Manual) Lymphocytes % (Manual) Nucleated RBC % Seg Neutrophils # Seg Neutrophils # Man Lymphocytes # (Manual) Monocytes # (Manual) PT INR D-Dimer ABG pH POC ABG pCO2 83.1 H POC ABG pO2 65.8 L ABG pO2 ABG HCO3 ABG O2 Saturation ABG Base Excess ABG Hemoglobin 8.9 L ABG Oxyhemoglobin ABG Sodium ABG Potassium ABG Chloride 96.0 L ABG Glucose 297 H Oxyhemoglobin Sodium Potassium Chloride Carbon Dioxide BUN Creatinine Glucose POC Glucose 286 H 238 H Lactic Acid Calcium Magnesium Ferritin Total Bilirubin Direct Bilirubin AST ALT Alkaline Phosphatase Lactate Dehydrogenase C-Reactive Protein Total Protein Albumin Triglycerides Arterial Blood Glucose 297 H Arterial Blood Ionized Calcium Urine WBC (Auto) Coronavirus (PCR) SARS-CoV-2 IgG Ab Crossmatch 06/19/20 06/19/20 06/19/20 05:55 11:20 17:12 WBC RBC Hgb Hct MCV MCH MCHC RDW Lymph % (Auto) Lymph # (Auto) Seg Neutrophils % Seg Neuts % (Manual) Lymphocytes % (Manual) Nucleated RBC % Seg Neutrophils # Seg Neutrophils # Man Lymphocytes # (Manual) Monocytes # (Manual) PT INR D-Dimer ABG pH POC ABG pCO2 POC ABG pO2 ABG pO2 ABG HCO3 ABG O2 Saturation ABG Base Excess ABG Hemoglobin ABG Oxyhemoglobin ABG Sodium ABG Potassium ABG Chloride ABG Glucose Oxyhemoglobin Sodium Potassium Chloride Carbon Dioxide BUN Creatinine Glucose POC Glucose 274 H 282 H 298 H Lactic Acid Calcium Magnesium Ferritin Total Bilirubin Direct Bilirubin AST ALT Alkaline Phosphatase Lactate Dehydrogenase C-Reactive Protein Total Protein Albumin Triglycerides Arterial Blood Glucose Arterial Blood Ionized Calcium Urine WBC (Auto) Coronavirus (PCR) SARS-CoV-2 IgG Ab Crossmatch 06/19/20 06/20/20 06/20/20 23:08 03:33 06:01 WBC RBC Hgb Hct MCV MCH MCHC RDW Lymph % (Auto) Lymph # (Auto) Seg Neutrophils % Seg Neuts % (Manual) Lymphocytes % (Manual) Nucleated RBC % Seg Neutrophils # Seg Neutrophils # Man Lymphocytes # (Manual) Monocytes # (Manual) PT INR D-Dimer ABG pH POC ABG pCO2 POC ABG pO2 ABG pO2 69.9 L ABG HCO3 50.8 H ABG O2 Saturation ABG Base Excess 24.2 H ABG Hemoglobin 5.8 L ABG Oxyhemoglobin ABG Sodium ABG Potassium ABG Chloride ABG Glucose Oxyhemoglobin Sodium Potassium Chloride Carbon Dioxide BUN Creatinine Glucose POC Glucose 293 H 182 H Lactic Acid Calcium Magnesium Ferritin Total Bilirubin Direct Bilirubin AST ALT Alkaline Phosphatase Lactate Dehydrogenase C-Reactive Protein Total Protein Albumin Triglycerides Arterial Blood Glucose Arterial Blood Ionized Calcium Urine WBC (Auto) Coronavirus (PCR) SARS-CoV-2 IgG Ab Crossmatch 06/20/20 06/20/20 06/20/20 11:47 17:46 23:37 WBC RBC Hgb Hct MCV MCH MCHC RDW Lymph % (Auto) Lymph # (Auto) Seg Neutrophils % Seg Neuts % (Manual) Lymphocytes % (Manual) Nucleated RBC % Seg Neutrophils # Seg Neutrophils # Man Lymphocytes # (Manual) Monocytes # (Manual) PT INR D-Dimer ABG pH POC ABG pCO2 POC ABG pO2 ABG pO2 ABG HCO3 ABG O2 Saturation ABG Base Excess ABG Hemoglobin ABG Oxyhemoglobin ABG Sodium ABG Potassium ABG Chloride ABG Glucose Oxyhemoglobin Sodium Potassium Chloride Carbon Dioxide BUN Creatinine Glucose POC Glucose 170 H 215 H 256 H Lactic Acid Calcium Magnesium Ferritin Total Bilirubin Direct Bilirubin AST ALT Alkaline Phosphatase Lactate Dehydrogenase C-Reactive Protein Total Protein Albumin Triglycerides Arterial Blood Glucose Arterial Blood Ionized Calcium Urine WBC (Auto) Coronavirus (PCR) SARS-CoV-2 IgG Ab Crossmatch 06/21/20 06/21/20 06/21/20 04:00 05:14 05:51 WBC RBC Hgb Hct MCV MCH MCHC RDW Lymph % (Auto) Lymph # (Auto) Seg Neutrophils % Seg Neuts % (Manual) Lymphocytes % (Manual) Nucleated RBC % Seg Neutrophils # Seg Neutrophils # Man Lymphocytes # (Manual) Monocytes # (Manual) PT INR D-Dimer ABG pH 7.474 H POC ABG pCO2 POC ABG pO2 ABG pO2 ABG HCO3 52.1 H ABG O2 Saturation ABG Base Excess 23.3 H ABG Hemoglobin 5.3 L ABG Oxyhemoglobin ABG Sodium ABG Potassium ABG Chloride ABG Glucose Oxyhemoglobin 93.8 L Sodium Potassium Chloride Carbon Dioxide BUN Creatinine Glucose POC Glucose 122 H 129 H Lactic Acid Calcium Magnesium Ferritin Total Bilirubin Direct Bilirubin AST ALT Alkaline Phosphatase Lactate Dehydrogenase C-Reactive Protein Total Protein Albumin Triglycerides Arterial Blood Glucose Arterial Blood Ionized Calcium Urine WBC (Auto) Coronavirus (PCR) SARS-CoV-2 IgG Ab Crossmatch 06/21/20 06/21/20 06/21/20 11:00 11:00 11:42 WBC 14.2 H RBC 1.85 L Hgb 6.2 L Hct 19.5 L* MCV 105 H MCH 34 H MCHC RDW 18.0 H Lymph % (Auto) Lymph # (Auto) Seg Neutrophils % Seg Neuts % (Manual) Lymphocytes % (Manual) Nucleated RBC % Seg Neutrophils # Seg Neutrophils # Man Lymphocytes # (Manual) Monocytes # (Manual) PT INR D-Dimer ABG pH POC ABG pCO2 POC ABG pO2 ABG pO2 ABG HCO3 ABG O2 Saturation ABG Base Excess ABG Hemoglobin ABG Oxyhemoglobin ABG Sodium ABG Potassium ABG Chloride ABG Glucose Oxyhemoglobin Sodium 147 H Potassium Chloride Carbon Dioxide 51 H* BUN 31 H Creatinine 0.5 L Glucose 224 H POC Glucose 217 H Lactic Acid Calcium Magnesium Ferritin Total Bilirubin Direct Bilirubin AST ALT Alkaline Phosphatase Lactate Dehydrogenase C-Reactive Protein Total Protein Albumin Triglycerides Arterial Blood Glucose Arterial Blood Ionized Calcium Urine WBC (Auto) Coronavirus (PCR) SARS-CoV-2 IgG Ab Crossmatch 06/21/20 06/21/20 06/21/20 14:18 14:30 18:36 WBC RBC Hgb Hct MCV MCH MCHC RDW Lymph % (Auto) Lymph # (Auto) Seg Neutrophils % Seg Neuts % (Manual) Lymphocytes % (Manual) Nucleated RBC % Seg Neutrophils # Seg Neutrophils # Man Lymphocytes # (Manual) Monocytes # (Manual) PT 15.1 H INR 1.19 H D-Dimer ABG pH POC ABG pCO2 POC ABG pO2 ABG pO2 ABG HCO3 ABG O2 Saturation ABG Base Excess ABG Hemoglobin ABG Oxyhemoglobin ABG Sodium ABG Potassium ABG Chloride ABG Glucose Oxyhemoglobin Sodium Potassium Chloride Carbon Dioxide BUN Creatinine Glucose POC Glucose 185 H Lactic Acid Calcium Magnesium Ferritin Total Bilirubin Direct Bilirubin AST ALT Alkaline Phosphatase Lactate Dehydrogenase C-Reactive Protein Total Protein Albumin Triglycerides Arterial Blood Glucose Arterial Blood Ionized Calcium Urine WBC (Auto) Coronavirus (PCR) SARS-CoV-2 IgG Ab Crossmatch See Detail 06/21/20 06/22/20 06/22/20 21:14 03:50 04:00 WBC RBC Hgb Hct MCV MCH MCHC RDW Lymph % (Auto) Lymph # (Auto) Seg Neutrophils % Seg Neuts % (Manual) Lymphocytes % (Manual) Nucleated RBC % Seg Neutrophils # Seg Neutrophils # Man Lymphocytes # (Manual) Monocytes # (Manual) PT INR D-Dimer ABG pH 7.451 H POC ABG pCO2 POC ABG pO2 ABG pO2 ABG HCO3 47.5 H ABG O2 Saturation ABG Base Excess 22.0 H ABG Hemoglobin < 5.1 L ABG Oxyhemoglobin ABG Sodium ABG Potassium ABG Chloride ABG Glucose Oxyhemoglobin 94.1 L Sodium 149 H Potassium 3.5 L Chloride Carbon Dioxide 42 H* D BUN 34 H Creatinine 0.4 L Glucose 219 H POC Glucose 250 H Lactic Acid Calcium Magnesium Ferritin Total Bilirubin Direct Bilirubin AST ALT Alkaline Phosphatase Lactate Dehydrogenase C-Reactive Protein Total Protein Albumin Triglycerides Arterial Blood Glucose Arterial Blood Ionized Calcium Urine WBC (Auto) Coronavirus (PCR) SARS-CoV-2 IgG Ab Crossmatch 06/22/20 06/22/20 12:16 Unknown WBC 14.1 H RBC 2.70 L Hgb 8.9 L Hct 27.2 L D MCV 101 H MCH 33 H MCHC RDW 17.7 H Lymph % (Auto) Lymph # (Auto) Seg Neutrophils % Seg Neuts % (Manual) 92.0 H Lymphocytes % (Manual) 5.0 L Nucleated RBC % Seg Neutrophils # Seg Neutrophils # Man 13.0 H Lymphocytes # (Manual) 0.7 L Monocytes # (Manual) PT INR D-Dimer ABG pH POC ABG pCO2 POC ABG pO2 ABG pO2 ABG HCO3 ABG O2 Saturation ABG Base Excess ABG Hemoglobin ABG Oxyhemoglobin ABG Sodium ABG Potassium ABG Chloride ABG Glucose Oxyhemoglobin Sodium Potassium Chloride Carbon Dioxide BUN Creatinine Glucose POC Glucose 215 H Lactic Acid Calcium Magnesium Ferritin Total Bilirubin Direct Bilirubin AST ALT Alkaline Phosphatase Lactate Dehydrogenase C-Reactive Protein Total Protein Albumin Triglycerides Arterial Blood Glucose Arterial Blood Ionized Calcium Urine WBC (Auto) Coronavirus (PCR) SARS-CoV-2 IgG Ab Crossmatch Chest x-ray: image reviewed (ETT in good position; right chest tube in good position; No appreciable PTX) Allied health notes reviewed: nursing
[2020-06-22 15:08] LABS: INR 0.88 (0.87-1.13)
[2020-06-22 15:09] LABS: Partial Thromboplastin Time 23.5 Sec. (24.2-36.6)
[2020-06-22] MEDS: NORepinephrine/NS 4 MG-250 ML 4 MG/250 ML BAG IV SCH (15:30)
--- NOTE | 2020-06-22 15:48 | Progress Note ---
Assessment and Plan Assessment and plan: - Acute hypoxemic respiratory failure; Patient intubated and on vent support --Severe COVID-19 bilateral pneumonia Coronavirus protocol: IV steroid therapy, completed remdesivir, isolation precautions, contact precautions, prone positioning while in bed, pulmonary toilet. ID following SARS CoV-2 IgG positive patient is NOT a candidate for COVID convalescent plasma --Severe sepsis/septic shock, due to COVID 19 PNA cont pressors as needed -- Acute kidney injury (SEN) , likely vasomotor nephropathy Resolved, IV fluids, avoid nephrotoxins -- Alcohol dependence; no episodes of withdrawal symptoms Thiamine, folic acid, multivitamin, CIWA protocol. -- Elevated liver function tests Suspected secondary to alcoholic liver disease. Supportive care, alcohol cessa tion, patient counseled. --Colonic distention N.p.o. for now GI evaluation. Repeat abdominal x-ray tomorrow -- DVT prophylaxis On therapeutic Lovenox 06/16/2020. Patient currently on mechanical ventilation with AC mode rate 30, tidal volume 500, FiO2 70% and PEEP of 16. Continue anticoagulation with Lovenox 110 milligrams subcu every 12 hours. Wean sedation of fentanyl/Versed as needed. Currently with IV steroids of Solu-Medrol 40 mg IV every 12 hours. Patient will likely need tracheostomy per pulmonary recommendations. Continue pressors to maintain MAP > 65. 06/17/2020. Patient currently on mechanical ventilation with AC mode rate 30, tidal volume 500, FiO2 65% and PEEP of 16. Continue anticoagulation with Lovenox 110 milligrams subcu every 12 hours. Wean sedation of fentanyl/Versed as needed. Currently with IV steroids of Solu-Medrol 40 mg IV every 12 hours. Patient will likely need tracheostomy per pulmonary recommendations. 06/18/2020. Patient currently on mechanical ventilation with AC mode rate 30, tidal volume 500, FiO2 70% and PEEP of 16. Continue Lovenox for anticoagulation and fentanyl/Versed for sedation. Wean steroids per pulmonary. CIWA protocol initiated for history of EtOH dependence 06/19/2020. Patient currently on mechanical ventilation with AC mode rate 30, tidal volume 500, FiO2 60% and PEEP of 16. Wean FiO2 as tolerated per protocol. Continue Lovenox for anticoagulation and fentanyl/Versed for sedation. Wean steroids per pulmonary. CIWA protocol initiated for history of EtOH dependence 06/20/2020. Patient currently on mechanical ventilation with AC mode rate 30, tidal volume 500, FiO2 60% and PEEP of 16. Wean FiO2 as tolerated, SBT per protocol. Continue Lovenox for anticoagulation and fentanyl/Versed for sedation. Wean steroids per pulmonary. Continue pressors to maintain MAP > 65 mmHg. Patient remains on ETT. Consider tracheostomy placement once oxygenation is better per pulmonary. CIWA protocol initiated for history of EtOH dependence. 06/21/2020. Patient with a small apical pneumothorax discovered yesterday. General surgery consulted and consider placing chest tube. Follow-up serial chest x-ray patient currently on mechanical ventilation with AC mode rate 30, tidal volume 500, FiO2 60% and PEEP of 16. Wean FiO2 as tolerated, SBT per protocol. Continue Lovenox for anticoagulation and fentanyl/Versed for sedation. Wean steroids per pulmonary. Continue pressors to maintain MAP > 65 mmHg. Patient remains on ETT. Consider tracheostomy placement once oxygenation is better per pulmonary. CIWA protocol initiated for history of EtOH dependen ce. 06/22. Status post right chest tube placement yesterday. Remains mechanically ventilated on pressors. Examination today shows slightly distended abdomen. KUB ordered. Awaiting stool guaiac. Plan to get a GI evaluation. The high probability of a clinically significant, sudden or life threatening deterioration of the [respiratory] system(s) required my full and direct attention, intervention and personal management. The aggregate critical care time was [31] minutes. This time is in addition to time spent performing reported procedures but includes the following: [x] Data Review and interpretation [x] Patient assessment and monitoring of vital signs [x] Documentation [x] Medication orders and management History Interval history: Vitals reviewed-admit tachycardic Hospitalist Physical - Physical exam Narrative exam: VITAL SIGNS: Reviewed. GENERAL: Sedated and intubated HEAD: No signs of head trauma. MOUTH: Oropharynx is normal. NECK: No adenopathy, no JVD. CHEST: Chest with diminished breath sounds bilaterally. No wheezes, rales, or rhonchi. CARDIAC: normal S1 and S2, without murmurs, gallops, or rubs. ABDOMEN: Slightly distended, bowel sounds positive MUSCULOSKELETAL: No edema NEUROLOGIC EXAM: Sedated and intubated - Constitutional Vitals: Temp Pulse Resp BP Pulse Ox 100.5 F H 121 H 30 H 93/57 94 06/22/20 12:00 06/22/20 13:15 06/22/20 13:15 06/22/20 13:15 06/22/20 13:15 Results - Labs CBC & Chem 7: 06/23/20 09:41 06/23/20 06:50 Labs: Laboratory Last Values WBC 14.1 K/mm3 (4.5-11.0) H 06/22/20 Unknown RBC 2.70 M/mm3 (3.65-5.03) L 06/22/20 Unknown Hgb 8.9 gm/dl (11.8-15.2) L 06/22/20 Unknown Hct 27.2 % (35.5-45.6) L D 06/22/20 Unknown MCV 101 fl (84-94) H 06/22/20 Unknown MCH 33 pg (28-32) H 06/22/20 Unknown MCHC 33 % (32-34) 06/22/20 Unknown RDW 17.7 % (13.2-15.2) H 06/22/20 Unknown Plt Count 255 K/mm3 (140-440) 06/22/20 Unknown Lymph % (Auto) 4.4 % (13.4-35.0) L 06/16/20 04:00 Grainger % (Auto) 3.6 % (0.0-7.3) 06/16/20 04:00 Eos % (Auto) 0.0 % (0.0-4.3) 06/16/20 04:00 Baso % (Auto) 0.3 % (0.0-1.8) 06/16/20 04:00 Lymph # (Auto) 0.6 K/mm3 (1.2-5.4) L 06/16/20 04:00 Grainger # (Auto) 0.5 K/mm3 (0.0-0.8) 06/16/20 04:00 Eos # (Auto) 0.0 K/mm3 (0.0-0.4) 06/16/20 04:00 Baso # (Auto) 0.0 K/mm3 (0.0-0.1) 06/16/20 04:00 Add Manual Diff Complete 06/22/20 Unknown Total Counted 100 06/22/20 Unknown Seg Neutrophils % Head Grower 06/16/20 04:00 Seg Neuts % (Manual) 92.0 % (40.0-70.0) H 06/22/20 Unknown Band Neutrophils % 0 % 06/15/20 Unknown Lymphocytes % (Manual) 5.0 % (13.4-35.0) L 06/22/20 Unknown Reactive Lymphs % (Man) 0 % 06/15/20 Unknown Monocytes % (Manual) 3.0 % (0.0-7.3) 06/22/20 Unknown Eosinophils % (Manual) 0 % (0.0-4.3) 06/15/20 Unknown Basophils % (Manual) 0 % (0.0-1.8) 06/15/20 Unknown Metamyelocytes % 3.0 % 06/15/20 Unknown Myelocytes % 0 % 06/15/20 Unknown Promyelocytes % 0 % 06/15/20 Unknown Blast Cells % 0 % 06/15/20 Unknown Nucleated RBC % Not Reportable 06/22/20 Unknown Seg Neutrophils # 12.7 K/mm3 (1.8-7.7) H 06/16/20 04:00 Seg Neutrophils # Man 13.0 K/mm3 (1.8-7.7) H 06/22/20 Unknown Band Neutrophils # 0.0 K/mm3 06/22/20 Unknown Lymphocytes # (Manual) 0.7 K/mm3 (1.2-5.4) L 06/22/20 Unknown Abs React Lymphs (Man) 0.0 K/mm3 06/22/20 Unknown Monocytes # (Manual) 0.4 K/mm3 (0.0-0.8) 06/22/20 Unknown Eosinophils # (Manual) 0.0 K/mm3 (0.0-0.4) 06/22/20 Unknown Basophils # (Manual) 0.0 K/mm3 (0.0-0.1) 06/22/20 Unknown Metamyelocytes # 0.0 K/mm3 06/22/20 Unknown Myelocytes # 0.0 K/mm3 06/22/20 Unknown Promyelocytes # 0.0 K/mm3 06/22/20 Unknown Blast Cells # 0.0 K/mm3 06/22/20 Unknown WBC Morphology Not Reportable 06/22/20 Unknown Hypersegmented Neuts Not Reportable 06/22/20 Unknown Hyposegmented Neuts Not Reportable 06/22/20 Unknown Hypogranular Neuts Not Reportable 06/22/20 Unknown Smudge Cells Not Reportable 06/22/20 Unknown Toxic Granulation Not Reportable 06/22/20 Unknown Toxic Vacuolation Not Reportable 06/22/20 Unknown Dohle Bodies Not Reportable 06/22/20 Unknown Pelger-Huet Anomaly Not Reportable 06/22/20 Unknown Jason Rods Not Reportable 06/22/20 Unknown Platelet Estimate Consistent w auto 06/22/20 Unknown Clumped Platelets Not Reportable 06/22/20 Unknown Plt Clumps, EDTA Not Reportable 06/22/20 Unknown Large Platelets Not Reportable 06/22/20 Unknown Giant Platelets Not Reportable 06/22/20 Unknown Platelet Satelliting Not Reportable 06/22/20 Unknown Plt Morphology Comment Not Reportable 06/22/20 Unknown RBC Morphology Not Reportable 06/22/20 Unknown Dimorphic RBCs Not Reportable 06/22/20 Unknown Polychromasia Few 06/22/20 Unknown Hypochromasia Not Reportable 06/22/20 Unknown Poikilocytosis Not Reportable 06/22/20 Unknown Anisocytosis Few 06/22/20 Unknown Microcytosis Not Reportable 06/22/20 Unknown Macrocytosis Few 06/22/20 Unknown Spherocytes Not Reportable 06/22/20 Unknown Pappenheimer Bodies Not Reportable 06/22/20 Unknown Sickle Cells Not Reportable 06/22/20 Unknown Target Cells Not Reportable 06/22/20 Unknown Tear Drop Cells Not Reportable 06/22/20 Unknown Ovalocytes Not Reportable 06/22/20 Unknown Stomatocytes Few 06/14/20 07:15 Helmet Cells Not Reportable 06/22/20 Unknown Sinclair-Slinger Bodies Not Reportable 06/22/20 Unknown [place] Rings Not Reportable 06/22/20 Unknown Bastrop Cells Not Reportable 06/22/20 Unknown Bite Cells Not Reportable 06/22/20 Unknown Crenated Cell Not Reportable 06/22/20 Unknown Elliptocytes Not Reportable 06/22/20 Unknown Acanthocytes (Spur) Not Reportable 06/22/20 Unknown Rouleaux Not Reportable 06/22/20 Unknown Hemoglobin C Crystals Not Reportable 06/22/20 Unknown Schistocytes Not Reportable 06/22/20 Unknown Malaria parasites Not Reportable 06/22/20 Unknown Josue Bodies Not Reportable 06/22/20 Unknown Hem Pathologist Commnt No 06/22/20 Unknown PT 11.8 Sec. (12.2-14.9) L 06/22/20 14:29 INR 0.88 (0.87-1.13) 06/22/20 14:29 APTT 23.5 Sec. (24.2-36.6) L 06/22/20 14:29 D-Dimer 1887.82 ng/mlDDU (0-234) H 05/20/20 08:16 ABG pH 7.451 pH Units (7.350-7.450) H 06/22/20 03:50 POC ABG pCO2 83.1 mmHg (32.0-48.0) H 06/19/20 04:32 ABG pCO2 69.8 mm Hg 06/22/20 03:50 POC ABG pO2 65.8 mmHg (83-108) L 06/19/20 04:32 ABG pO2 89.6 mm Hg (80.0-90.0) 06/22/20 03:50 POC ABG HCO3 49.2 06/19/20 04:32 ABG HCO3 47.5 mmol/L (20.0-26.0) H 06/22/20 03:50 ABG O2 Saturation 97.1 % (95.0-99.0) 06/22/20 03:50 ABG O2 Content 6.0 (0.0-44) 06/22/20 03:50 POC ABG Base Excess 21.2 06/19/20 04:32 ABG Base Excess 22.0 mmol/L (-2.0-3.0) H 06/22/20 03:50 ABG Hemoglobin < 5.1 gm/dl (14.0-18.0) L 06/22/20 03:50 ABG Oxyhemoglobin 86.3 (94-98) L 05/09/20 15:56 ABG Carboxyhemoglobin 2.6 % (0.0-5.0) 06/22/20 03:50 ABG Methemoglobin 0.5 % (0.0-1.5) 06/22/20 03:50 ABG Sodium 144.4 mmol/L (136.0-145.0) 06/19/20 04:32 ABG Potassium 3.6 mmol/L (3.40-4.50) 06/19/20 04:32 ABG Chloride 96.0 mmol/L (98-107) L 06/19/20 04:32 ABG Glucose 297 mg/dL (65-95) H 06/19/20 04:32 Oxyhemoglobin 94.1 % (95.0-99.0) L 06/22/20 03:50 Carboxyhemoglobin 1.3 (0.5-1.5) 05/09/20 15:56 FiO2 60 % 06/22/20 03:50 Sodium 149 mmol/L (137-145) H 06/22/20 04:00 Potassium 3.5 mmol/L (3.6-5.0) L 06/22/20 04:00 Chloride 98.3 mmol/L (98-107) 06/22/20 04:00 Carbon Dioxide 42 mmol/L (22-30) H* D 06/22/20 04:00 Anion Gap 12 mmol/L 06/22/20 04:00 BUN 34 mg/dL (9-20) H 06/22/20 04:00 Creatinine 0.4 mg/dL (0.8-1.3) L 06/22/20 04:00 Estimated GFR > 60 ml/min 06/22/20 04:00 BUN/Creatinine Ratio 85 % 06/22/20 04:00 Glucose 219 mg/dL (75-100) H 06/22/20 04:00 POC Glucose 215 mg/dL (70-105) H 06/22/20 12:16 Lactic Acid 1.80 mmol/L (0.7-2.0) 05/09/20 Unknown Calcium 9.3 mg/dL (8.4-10.2) 06/22/20 04:00 Phosphorus 3.10 mg/dL (2.5-4.5) 06/15/20 04:00 Magnesium 1.90 mg/dL (1.7-2.3) 06/15/20 04:00 Ferritin 1496.0 ng/mL (30.0-300.0) H 06/14/20 11:50 Total Bilirubin 2.00 mg/dL (0.1-1.2) H 06/15/20 04:00 Direct Bilirubin 0.6 mg/dL (0-0.2) H 05/11/20 07:30 Indirect Bilirubin 0.9 mg/dL 05/11/20 07:30 AST 47 units/L (5-40) H 06/15/20 04:00 ALT 77 units/L (7-56) H 06/15/20 04:00 Alkaline Phosphatase 96 units/L (35-129) 06/15/20 04:00 Lactate Dehydrogenase 705 units/L (91-180) H 05/20/20 08:16 C-Reactive Protein 3.10 mg/dL (0.00-1.30) H 05/20/20 08:16 Total Protein 6.3 g/dL (6.3-8.2) 06/15/20 04:00 Albumin 2.6 g/dL (3.9-5) L 06/15/20 04:00 Albumin/Globulin Ratio 0.7 % 06/15/20 04:00 Triglycerides 152 mg/dL (2-149) H 06/15/20 05:00 Procalcitonin 0.94 ng/mL (<0.15) 06/14/20 11:50 Arterial Blood Glucose 297 mg/dL (65-95) H 06/19/20 04:32 Arterial Blood Ionized Calcium 4.9 mg/dL (4.6-5.3) 06/19/20 04:32 Urine Color Fauzia (Yellow) 05/10/20 Unknown Urine Turbidity Clear (Clear) 05/10/20 Unknown Urine pH 5.0 (5.0-7.0) 05/10/20 Unknown Ur Specific [place] 1.019 (1.003-1.030) 05/10/20 Unknown Urine Protein 100 mg/dl mg/dL (Negative) 05/10/20 Unknown Urine Glucose (UA) Neg mg/dL (Negative) 05/10/20 Unknown Urine Ketones Neg mg/dL (Negative) 05/10/20 Unknown Urine Blood Lg (Negative) 05/10/20 Unknown Urine Nitrite Neg (Negative) 05/10/20 Unknown Urine Bilirubin Neg (Negative) 05/10/20 Unknown Urine Urobilinogen 2.0 mg/dL (<2.0) 05/10/20 Unknown Ur Leukocyte Esterase Neg (Negative) 05/10/20 Unknown Urine WBC (Auto) 11.0 /HPF (0.0-6.0) H 05/10/20 Unknown Urine RBC (Auto) 2.0 /HPF (0.0-6.0) 05/10/20 Unknown U Epithel Cells (Auto) 1.0 /HPF (0-13.0) 05/10/20 Unknown Urine Bacteria (Auto) 1+ /HPF (Negative) 05/10/20 Unknown Urine Mucus Few /HPF 05/10/20 Unknown Plasma/Serum Alcohol < 0.01 % (0-0.07) 05/09/20 14:20 Coronavirus (PCR) Positive (Negative) A 05/10/20 Unknown SARS-CoV-2 IgG Ab Reactive (NonReactive) A 05/11/20 07:30 Blood Type B POSITIVE 06/21/20 14:18 Antibody Screen Negative 06/21/20 14:18 Crossmatch See Detail 06/21/20 14:18 Microbiology: Microbiology 06/22/20 Unknown Stool Stool Occult Blood (DOLLY) - Final - Diagnostic Impressions Diagnostic Impressions: Echocardiogram 05/20/20 13:02 Transthoracic Echocardiogram Indication: CHF BP: 97/73 Conclusions *The study quality is technically very difficult and limited. *The left ventricular chamber size, wall thickness and systolic function are within normal limits. There are no wall motion abnormalities observed. Ejection fraction is normal. *The estimated ejection fraction is 60-65%. *The pericardium appears normal. Findings Procedure Info: The study quality is technically difficult. Left Ventricle: The left ventricular chamber size, wall thickness and systolic function are within normal limits. There are no wall motion abnormalities observed. Ejection fraction is normal. The estimated ejection fraction is 60-65%. Abnormal left ventricular diastolic filling is observed, consistent with impaired relaxation. Left Atrium: The left atrium is normal in size with no visual thrombus identified. Right Ventricle: The right ventricle is not well visualized. Right Atrium: The right atrium is not well visualized. Aortic Valve: The aortic valve is trileaflet. The leaflets are thin with normal excursion. There is no aortic stenosis or regurgitation present. Mitral Valve: The mitral valve appears normal in structure and function. Tricuspid Valve: The tricuspid valve appears normal in structure and function. Unable to estimate the right ventricular systolic pressure. Pulmonic Valve: The pulmonic valve is not well visualized. There is no evidence of pulmonic regurgitation. There is no pulmonic stenosis. Pericardium: The pericardium appears normal. Pulmonary Artery: The main pulmonary artery is not well visualized. Venous: The inferior vena cava appears normal in size. Measurements Chambers 2D Name Value Normal Range IVSd (2D) 0.83 cm (0.6 - 1.1) LVPWd (2D) 0.83 cm (0.6 - 1.1) LVIDd (2D) 3.88 cm (3.7 - 5.6) LVIDs (2D) 2.46 cm (2 - 3.8) LV FS (2D) 36.52 % - EF Teichholz (2D) 66.97 % - Ao root diameter (2D) 3.47 cm (2 - 3.7) Volumes/Mass Name Value Normal Range LA ESV SP 4CH (A/L) 22.4 ml - LA ESV SP 2CH (A/L) 22.89 ml - LA ESV BP (A/L) 23.06 ml - LA ESV SP 4CH (MOD) 21.09 ml - LA ESV SP 2CH (MOD) 22.44 ml - Diastolic/Systolic Function Name Value Normal Range MV E-wave Vmax 0.48 m/sec - MV deceleration time 156.3 msec - MV A-wave Vmax 0.59 m/sec - MV E:A ratio 0.81 ratio - Aortic Valve Name Value Normal Range AV Vmax 0.97 m/sec - AV VTI 14.49 cm - AV peak gradient 3.73 mmHg - AV mean gradient 1.89 mmHg - LVOT diameter 2.09 cm - LVOT Vmax 0.72 m/sec - LVOT VTI 10.21 cm - LVOT peak gradient 2.05 mmHg - LVOT mean gradient 1.03 mmHg - SV LVOT 35.17 ml - INNA (continuity Vmax) 2.55 cm2 - INNA (continuity VTI) 2.43 cm2 - Tricuspid Valve Name Value Normal Range TV E-wave Vmax 0.37 m/sec - Pulmonic Valve/Qp:Qs Name Value Normal Range PV Vmax 0.72 m/sec - PV peak gradient 2.06 mmHg - RVOT Vmax 0.85 m/sec - RVOT VTI 9.89 cm - RVOT peak gradient 2.9 mmHg - PV acceleration time 72.31 msec - Cantor/IV: Voiding Method Condom Catheter IV Catheter Type [Right Upper PICC Line arm] IV Catheter Type [Right CVL Internal Jugular] IV Catheter Type [Right Peripheral IV Forearm] IV Catheter Type [Left Forearm Peripheral IV ] IV Catheter Type [Left Wrist] INT / Saline Lock IV Catheter Type [Right Hand] INT / Saline Lock IV Catheter Type [Left Hand] INT / Saline Lock IV Catheter Type [Left Peripheral IV Antecubital] Active Medications - Current Medications Current Medications: Generic Name Dose Route Start Last Admin Trade Name Freq PRN Reason Stop Dose Admin Acetaminophen 650 mg 06/14/20 10:07 06/21/20 20:21 Tylenol FEEDTUBE 650 mg Q4H PRN Administration Pain, Mild (1-3) Acetazolamide 250 mg 06/22/20 13:00 06/22/20 13:40 Acetazolamide 500 Mg Vial IV 06/22/20 22:01 250 mg Q12HR DESIRE Administration Alprazolam 0.25 mg 05/20/20 17:53 06/08/20 08:29 Alprazolam 0.25 Mg Tab PO 0.25 mg Q8H PRN Administration Anxiety Lipase/Protease/Amylase 1 each 05/22/20 13:01 Lipase 10,500/Protease 25,000/Amylase 43,750 (Units) Dr Newell FEEDTUBE PRN PRN For Clogged Feeding Tube Bisacodyl 10 mg 06/07/20 10:00 06/22/20 10:25 Dulcolax MO Not Given QDAY DESIRE Docusate Sodium 100 mg 05/28/20 14:00 06/22/20 10:30 Colace PO 100 mg BID DESIRE Administration Famotidine 20 mg 05/25/20 22:00 06/22/20 10:28 Pepcid PO 20 mg BID DESIRE Administration Fentanyl 50 mcg 06/22/20 09:48 Fentanyl 100 Mcg/2 Ml Inj IV Q10MIN PRN ANALGESIA Folic Acid 1 mg 05/09/20 15:36 06/22/20 10:28 Folvite PO 1 mg QDAY DESIRE Administration Heparin Sodium (Porcine) 4,300 unit 06/22/20 12:48 Heparin 10,000 Units/10 Ml Vial 40 unit/kg (4300 unit) IV Q6H PRN Anti-Xa Assay < 0.1 units/ml Hydrophilic Ointment 1 applic 05/21/20 20:33 Lip Therapy Vaseline TP Q2HR PRN Dry Lips Midazolam HCl 100 mg/ Sodium 100 mls @ 2 mls/hr 06/02/20 14:00 06/22/20 01:19 Chloride IV 5 mg/hr TITR DESIRE 5 mls/hr Administration Protocol 2 MG/HR Norepinephrine 4 mg in 250 mls @ 7.5 mls/hr 06/04/20 16:00 06/22/20 09:00 Levophed Drip 4 Mg/Ns 250 Ml IV Infused TITR DESIRE Titration Protocol 2 MCG/MIN Propofol 500 mg in 50 mls @ 3.309 mls/hr 06/08/20 11:00 06/17/20 18:25 Propofol IV 35 mcg/kg/min TITR DESIRE 23.163 mls/hr Administration Protocol 5 MCG/KG/MIN Fentanyl Citrate 2,000 mcg in 100 mls @ 5.32 mls/hr 06/09/20 14:00 06/22/20 14:45 Fentanyl Drip Premix IV 4 mcg/kg/hr TITR DESIRE 21.28 mls/hr Administration Protocol 1 MCG/KG/HR Vasopressin 20 unit/ Sodium 101 mls @ 9.09 mls/hr 06/09/20 18:00 Chloride IV TITR DESIRE Protocol 0.03 UNITS/MIN Heparin Sodium/Sodium Chloride 25,000 unit in 500 mls @ 30 mls/hr 06/22/20 13:00 Heparin/ 0.45% Nacl-25,000 Unit/500 Ml IV TITR DESIRE Protocol 1,500 UNITS/HR Insulin Glargine 20 units 06/18/20 22:00 06/21/20 21:30 Insulin Glargine 100 Units/Ml SUB-Q 20 units QHS DESIRE Administration Insulin Human Lispro 0 unit 05/29/20 14:00 06/22/20 05:40 Humalog SUB-Q 6 unit Q6H [facility] Administration Protocol Lactulose 20 gm 06/20/20 16:00 06/22/20 12:33 Lactulose 20 Gm/30 Ml Oral Liqd PO 06/22/20 15:59 20 gm Q6HR DESIRE Administration Methylprednisolone Sodium Succinate 40 mg 05/20/20 18:00 06/22/20 06:13 Methylprednisolone Sod Succinate 40 Mg/1 Ml Inj IV 40 mg Q12H [facility] Administration Multi-Ingred Cream/Lotion/Oil/Oint 1 applic 05/21/20 20:33 Mineral Oil/Petrolatum, White Ophth Oint 3.5 Gm OU Q4HR PRN Dry Eye(s) Phenobarbital 20 mg 06/18/20 14:00 06/22/20 13:33 Phenobarbital 20 Mg/5 Ml Oral Liqd FEEDTUBE 20 mg Q8HR DESIRE Administration Polyethylene Glycol 17 gm 05/28/20 22:00 06/21/20 21:29 Miralax 3350 PO 17 gm QHS DESIRE Administration Quetiapine Fumarate 300 mg 06/10/20 22:00 06/22/20 10:29 Seroquel PO 300 mg BID DESIRE Administration Senna 17.2 mg 06/07/20 10:00 06/22/20 10:29 Senokot PO 17.2 mg BID DESIRE Administration Simethicone 160 mg 06/22/20 13:00 06/22/20 13:32 Simethicone 80 Mg Chew Tab PO 06/27/20 07:01 160 mg Q6H DESIRE Administration Simple Syrup 15 ml 05/22/20 13:01 Simple Syrup 15 Ml FEEDTUBE PRN PRN Hypoglycemia Simple Syrup 30 ml 05/22/20 13:01 Simple Syrup 15 Ml FEEDTUBE PRN PRN Hypoglycemia Sodium Bicarbonate 325 mg 05/22/20 13:01 Sodium Bicarbonate 325 Mg Tab FEEDTUBE PRN PRN For Clogged Feeding Tube Sodium Chloride 10 ml 05/09/20 22:00 06/22/20 10:30 Sodium Chloride Flush Syringe 10 Ml IV 10 ml BID DESIRE Administration Nutrition/Malnutrition Assess - Dietary Evaluation Nutrition/Malnutrition Findings: Nutrition Notes Start: 05/17/20 14:10 Freq: Status: Active Protocol: Document 06/17/20 12:23 AB (Rec: 06/17/20 12:29 AB [id number]) Co-Sign 06/17/20 12:23 LM Nutrition Notes Initial or Follow up Reassessment Current Diagnosis Sepsis,Respiratory Failure Other Pertinent Diagnosis Bilat pneu, COVID-19 (+), EtOH dependence Current Diet Vital HP at 65 ml/hr (goal rate) Labs/Tests POC BG 221 Pertinent Medications Propofol at 19.854 ml/hr Height 6 ft Weight 107.1 kg [place] Body Weight (kg) 80.90 BMI 32.0 Weight Status Obese Subjective/Other Information F/U for TF tolerate/rate and oral secretions. [employer] observed TF running at goal rate. Per RN, pt still having cream colored oral secretions. Percent of energy/protein needs met: 86%/84% Burn Absent Trauma Absent GI Symptoms None Current % PO Negligible Minimum of two criteria No physical signs of malnutrition #1 Nutrition Diagnosis Inadequate oral intake Diagnosis Progress(for reassessment Continues documentation) Is patient on ventilator? Yes Is Patient Ambulatory and/or Out of Bed No REE-(Ward-St. Jeor-confined to bed) 2360.412 Kcal/Kg value to use for calculation 17 Approximate Energy Requirements Using 1821 kcal/Kg Calculation Used for Recommendations Kcal/kg Additional Notes Pro needs >2g/kg IBW: at least 162g/day Fluid needs 1ml/kcal Nutrition Intervention Change Diet Order: Continue TF with rate change Nutrition Support: Vital HP at 65ml/hr with 50ml water flush q4h. For hyponatremia, flush 50 ml q6h Kcal 1,560 Protein (gm) 136 Fluid (mL) 1,304 Goal #1 TF tolerance Goal #2 TF (at goal rate) to meet at least 75% energy and pro needs Anticipated Discharge Needs: Unable to identify at this time Follow-Up By: 06/24/20 Additional Comments F/U for TF tolerance and BM
--- NOTE | 2020-06-22 16:23 | XRay Report ---
ABDOMEN 3 VIEW(S) INDICATION / CLINICAL INFORMATION: worsening distension. COMPARISON: KUB from 06/20/2020 FINDINGS: TUBES / LINES: NG tube tip is in the proximal stomach. There is worsening gaseous distention of the c olon, particularly the transverse colon. BOWEL GAS PATTERN: No significant abnormality. FREE AIR / EXTRALUMINAL GAS: None seen. ADDITIONAL FINDINGS: No significant additional findings. IMPRESSION: 1. NG tube in satisfactory position. 2. Worsened gaseous distention of the colon. Signer Name: Art Griffith MD Signed: 06/22/2020 4:18 PM Workstation Name: [id number]
[2020-06-22] MEDS: HEPARIN/ 0.45% NACL DRIP 25,000 UNIT/500 ML BAG IV SCH (17:20)
--- NOTE | 2020-06-22 17:53 | Progress Note ---
Assessment and Plan 50 year old male COVID+ with respiratory failure. stable s/p R chest tube placement for right pneumothorax likely due to barotrauma from high PEEP. Will require chest tube until off the vent and extubated. Subjective Date of service: 06/22/20 Narrative: no acute events overnight. CXR from yesterday after chest tube placement and this morning show chest tube is place with no pneumothorax. Objective Vital Signs - 12hr 06/22/20 06/22/20 06/22/20 06:00 06:15 06:30 Temperature Pulse Rate 99 H 97 H 97 H Pulse Rate [ From Monitor] Respiratory 30 H 30 H 30 H Rate Blood Pressure 96/61 92/60 98/61 O2 Sat by Pulse 100 Oximetry 06/22/20 06/22/20 06/22/20 06:45 07:00 07:15 Temperature Pulse Rate 96 H 97 H 96 H Pulse Rate [ From Monitor] Respiratory 30 H 30 H 30 H Rate Blood Pressure 94/60 92/60 100/60 O2 Sat by Pulse 98 98 97 Oximetry 06/22/20 06/22/20 06/22/20 07:30 07:45 08:00 Temperature 98.8 F Pulse Rate 98 H 99 H 98 H Pulse Rate [ 95 H From Monitor] Respiratory 30 H 30 H 30 H Rate Blood Pressure 99/62 102/64 102/66 O2 Sat by Pulse 97 98 99 Oximetry 06/22/20 06/22/20 06/22/20 08:15 08:30 08:42 Temperature Pulse Rate 98 H 99 H 102 H Pulse Rate [ From Monitor] Respiratory 30 H 30 H Rate Blood Pressure 106/66 101/68 104/71 O2 Sat by Pulse 96 97 100 Oximetry 06/22/20 06/22/20 06/22/20 08:45 09:00 09:15 Temperature Pulse Rate 101 H 107 H 113 H Pulse Rate [ From Monitor] Respiratory 30 H 31 H 24 Rate Blood Pressure 104/71 120/83 117/87 O2 Sat by Pulse 97 96 96 Oximetry 06/22/20 06/22/20 06/22/20 09:30 09:45 10:00 Temperature Pulse Rate 115 H 117 H 122 H Pulse Rate [ From Monitor] Respiratory 24 21 31 H Rate Blood Pressure 123/78 132/82 130/92 O2 Sat by Pulse 96 95 93 Oximetry 06/22/20 06/22/20 06/22/20 10:15 10:30 10:46 Temperature Pulse Rate 122 H 127 H 130 H Pulse Rate [ From Monitor] Respiratory 29 H 34 H 26 H Rate Blood Pressure 144/85 146/88 122/69 O2 Sat by Pulse 92 91 89 Oximetry 06/22/20 06/22/20 06/22/20 11:00 11:15 11:30 Temperature Pulse Rate 129 H 130 H 128 H Pulse Rate [ From Monitor] Respiratory 20 25 H 15 Rate Blood Pressure 108/62 95/59 101/64 O2 Sat by Pulse 92 90 91 Oximetry 06/22/20 06/22/20 06/22/20 11:45 12:00 12:15 Temperature 100.5 F H Pulse Rate 128 H 127 H 130 H Pulse Rate [ 101 H From Monitor] Respiratory 15 19 22 Rate Blood Pressure 106/68 97/59 114/66 O2 Sat by Pulse 91 93 95 Oximetry 06/22/20 06/22/20 06/22/20 12:30 12:36 12:45 Temperature Pulse Rate 127 H 124 H Pulse Rate [ From Monitor] Respiratory 21 25 H Rate Blood Pressure 99/61 91/64 O2 Sat by Pulse 98 98 94 Oximetry 06/22/20 06/22/20 06/22/20 13:00 13:15 13:30 Temperature Pulse Rate 128 H 121 H 118 H Pulse Rate [ From Monitor] Respiratory 22 30 H 30 H Rate Blood Pressure 111/70 93/57 96/61 O2 Sat by Pulse 94 94 93 Oximetry 06/22/20 06/22/20 06/22/20 13:45 14:00 14:15 Temperature Pulse Rate 118 H 116 H 115 H Pulse Rate [ From Monitor] Respiratory 30 H 30 H 30 H Rate Blood Pressure 89/58 91/58 91/58 O2 Sat by Pulse 94 97 97 Oximetry 06/22/20 06/22/20 06/22/20 14:30 14:45 15:00 Temperature Pulse Rate 112 H 111 H 113 H Pulse Rate [ From Monitor] Respiratory 30 H 30 H 30 H Rate Blood Pressure 98/57 96/61 96/64 O2 Sat by Pulse 94 97 95 Oximetry 06/22/20 06/22/20 06/22/20 15:15 15:30 15:45 Temperature Pulse Rate 113 H 111 H 110 H Pulse Rate [ From Monitor] Respiratory 30 H 30 H 30 H Rate Blood Pressure 90/55 84/53 90/59 O2 Sat by Pulse 96 97 Oximetry 06/22/20 06/22/20 06/22/20 16:00 16:15 16:30 Temperature Pulse Rate 107 H 106 H 105 H Pulse Rate [ 103 H From Monitor] Respiratory 30 H 30 H 30 H Rate Blood Pressure 96/61 94/56 92/57 O2 Sat by Pulse 99 Oximetry 06/22/20 06/22/20 16:45 17:25 Temperature Pulse Rate 105 H 108 H Pulse Rate [ From Monitor] Respiratory 30 H Rate Blood Pressure 92/54 107/68 O2 Sat by Pulse 97 98 Oximetry - General physical appearance no distress - Respiratory other (intubated, unlabored breathing, R chest tube in place attached to pleurovac on suction. no airleak) - Labs 06/22/20 Unknown 06/22/20 04:00 Diabetes panel 06/22/20 Range/Units 04:00 Sodium 149 H (137-145) mmol/L Potassium 3.5 L (3.6-5.0) mmol/L Chloride 98.3 (98-107) mmol/L Carbon Dioxide 42 H* D (22-30) mmol/L BUN 34 H (9-20) mg/dL Creatinine 0.4 L (0.8-1.3) mg/dL Glucose 219 H (75-100) mg/dL Calcium 9.3 (8.4-10.2) mg/dL Calcium panel 06/22/20 Range/Units 04:00 Calcium 9.3 (8.4-10.2) mg/dL Pituitary panel 06/22/20 Range/Units 04:00 Sodium 149 H (137-145) mmol/L Potassium 3.5 L (3.6-5.0) mmol/L Chloride 98.3 (98-107) mmol/L Carbon Dioxide 42 H* D (22-30) mmol/L BUN 34 H (9-20) mg/dL Creatinine 0.4 L (0.8-1.3) mg/dL Glucose 219 H (75-100) mg/dL Calcium 9.3 (8.4-10.2) mg/dL Adrenal panel 06/22/20 Range/Units 04:00 Sodium 149 H (137-145) mmol/L Potassium 3.5 L (3.6-5.0) mmol/L Chloride 98.3 (98-107) mmol/L Carbon Dioxide 42 H* D (22-30) mmol/L BUN 34 H (9-20) mg/dL Creatinine 0.4 L (0.8-1.3) mg/dL Glucose 219 H (75-100) mg/dL Calcium 9.3 (8.4-10.2) mg/dL
[2020-06-22] MEDS: POLYETHYLENE GLYCOL 3350 17 GM POWDER PO SCH (21:54)
[2020-06-22] MEDS: INSULIN GLARGINE 100 UNITS/ML SUB-Q SCH (21:55)
[2020-06-23] MEDS: fentaNYL DRIP Premix 2,000 MCG/100 ML BAG IV SCH ×6 (00:19→22:34)
[2020-06-23 00:55] LABS: Hematocrit 26.9 % (35.5-45.6); Hemoglobin 8.9 gm/dl (11.8-15.2)
[2020-06-23] MEDS: SIMETHICONE 80 MG CHEW TAB PO SCH ×4 (05:48→20:07)
[2020-06-23] MEDS: PHENobarbital 20 MG/5 ML ORAL LIQD FEEDTUBE SCH ×3 (05:48→21:32)
[2020-06-23] MEDS: INSULIN LISPRO 100 UNIT/ML VIAL 3 mL SUB-Q SCH ×4 (06:23→18:37)
[2020-06-23 08:13] LABS: Alanine Aminotransferase 23 units/L (7-56); Albumin 2.9 g/dL (3.9-5); Blood Urea Nitrogen 26 mg/dL (9-20); Calcium 9.1 mg/dL (8.4-10.2); Hemolysis Index 1
[2020-06-23 08:19] LABS: BUN/Creatinine Ratio 65
[2020-06-23] MEDS ORDERED: POTASSIUM CHLORIDE 20 MEQ PACKET FEEDTUBE ONE (09:00)
[2020-06-23] MEDS: QUEtiapine 100 MG TAB PO SCH ×2 (09:21→21:33)
[2020-06-23] MEDS: FOLIC ACID 1 MG TAB PO SCH (09:21)
[2020-06-23] MEDS: FAMOTIDINE 20 MG TAB PO SCH (09:21)
[2020-06-23] MEDS: DOCUSATE SODIUM 100 MG/10 ML ORAL LIQD PO SCH ×2 (09:21→21:32)
[2020-06-23] MEDS: POTASSIUM CHLORIDE 20 MEQ 20 MEQ/100 ML BAG IV SCH ×2 (09:58→11:12)
[2020-06-23] MEDS: HEPARIN/ 0.45% NACL DRIP 25,000 UNIT/500 ML BAG IV SCH (09:58)
[2020-06-23] MEDS ORDERED: INSULIN GLARGINE 100 UNITS/ML SUB-Q ONE (10:00)
[2020-06-23 10:09] LABS: Hemoglobin 9.1 gm/dl (11.8-15.2)
[2020-06-23] MEDS: SENNOSIDES 8.6 MG TAB PO SCH ×2 (11:15→21:33)
[2020-06-23] MEDS: PANTOPRAZOLE 40 MG INJ IV SCH (11:19)
--- NOTE | 2020-06-23 11:48 | XRay Report ---
ABDOMEN 2 VIEW(S) INDICATION / CLINICAL INFORMATION: Abdominal distension. COMPARISON: 06/22/2020 FINDINGS: TUBES / LINES: Stable gastric positioning of nasogastric tube. BOWEL GAS PATTERN: Stable marked gaseous distention of the proximal transverse colon. FREE AIR / EXTRALUMINAL GAS: None seen. ADDITIONAL FINDINGS: No significant additional findings. IMPRESSION: Stable exam with persistent marked gaseous distention of the colon. Signer Name: Ramón Linder MD Signed: 06/23/2020 11:44 AM Workstation Name: [id number]
[2020-06-23] MEDS: POTASSIUM CHLORIDE 10 MEQ 10 MEQ/100 ML BAG IV SCH ×4 (12:06→16:10)
--- NOTE | 2020-06-23 15:03 | Progress Note ---
Assessment and Plan Acute hypoxemic respiratory failure due to COVID-19 Severe Sepsis Bilateral pneumonia Acute kidney injury (SEN) with acute tubular necrosis (ATN) Alcohol dependence Elevated liver function tests - stool guaiac +ve - reduced peep to 12 - resume tube feeds ok - changed to bid protonix for G.I. prophylaxes - repeat CXR in am - continue full anticoagulation - continue care as below otherwise; - continue bowel regimen - continue to wean supplemental oxygen for target O2 sat's > 92% acutely - continue to wean Levophed for target MAP > 65 mmHg (2 mics/min) - tracheostomy placement once oxygenation better / more hemodynamically stable - he will need a tracheostomy once numbers better - continue Daily SAT and SBT assessment as tolerated - VAP bundle addressed - continue lung protective strategies - continue bronchodilators with pulmonary hygiene per RT - wean per pulmonary driven protocols otherwise - accuchecks with glycemic control per SSI (While critically ill target blood glucose of 140-180 mg/dL; avoid hypoglycemia) - sedation prn for target RASS -1 to -2 - continue enteral nutritional support at goal rate as tolerated - continue airborne and contact isolation - follow repeat COVID-19 testing - continue Zinc & Vit C supplementaion - continue systemic steroids for Asthma / severe COVID infection - Prone positioning as tolerated - continue empiric full dose anticoagulation re: elevated d-dimers / hypercoa gulable state - NOT a candidate for COVID convalescent plasma - continue systemic steroids X >/= 10 days - completed remdesivir dosing (total 5 days) - empiric AB's coverage per ID rec's - accuchecks with glycemic control per SSI (While critically ill target blood glucose of 140-180 mg/dL; avoid hypoglycemia) - avoid nephrotoxins, renally dose all medications - continue to avoid benzodiazepine's, reduce the possibility of delirium - continue wound care per RN / WCN - prn analgesia per CPOT score - Maintenance of sleep-wake cycle, avoid delirium - continue to avoid benzodiazepine's, reduce the possibility of delirium - aspiration precautions - G.I. & VTE prophylaxis - PT/OT/ROM exercises - continue mobility protocols for pressure ulcer prophylaxis - Monitor hemodynamics closely - continue other care per attending / other consultants - discharge planning ongoing concurrently .... Re-evaluate in am & prn CONDITION: CRITICAL PROGNOSIS: GUARDED CODE STATUS: FULL CODE The high probability of a clinically significant, sudden or life-threatening deterioration of the [respiratory, cardiovascular, hematologic & neurologic] system(s) required my full and direct attention, intervention and personal management. The aggregate critical care time was [35] minutes without overlap. Time includes spent on; [x] Data Review and interpretation [x] Patient assessment and monitoring of vital signs [x] Documentation [x] Medication orders and management Subjective Date of service: 06/23/20 Principal diagnosis: Ac hypoxemic resp failure; COVID-19; Severe Sepsis; Shaggy PNA; Alcohol Abuse Interval history: Patient is seen today for: Acute hypoxemic respiratory failure due to COVID-19; Severe Sepsis; Bilateral pneumonia; Alcohol dependence; Elevated liver function tests Seen and examined at bedside; 24hour events reviewed; nursing and respiratory care staff consulted; no adverse overnight events reported to me; resting in bed; remains on MVS; seen by Caitlyn and no acute endoscopy; H&H holding on full anticoagulation; no emesis or overt aspiration; FiO2 with slow improvement. Objective Vital Signs - 12hr 06/23/20 06/23/20 06/23/20 03:15 03:30 03:45 Temperature Pulse Rate 102 H 109 H 108 H Pulse Rate [ From Monitor] Respiratory 16 17 16 Rate Blood Pressure 111/60 120/68 110/63 O2 Sat by Pulse 93 92 Oximetry 06/23/20 06/23/20 06/23/20 04:00 04:16 04:30 Temperature 99.1 F Pulse Rate 104 H 103 H 105 H Pulse Rate [ 104 H From Monitor] Respiratory 20 27 H Rate Blood Pressure 119/64 124/73 125/84 O2 Sat by Pulse 95 93 92 Oximetry 06/23/20 06/23/20 06/23/20 04:45 04:56 05:00 Temperature Pulse Rate 105 H 118 H 118 H Pulse Rate [ From Monitor] Respiratory 18 25 H Rate Blood Pressure 139/84 139/84 109/69 O2 Sat by Pulse 86 93 Oximetry 06/23/20 06/23/20 06/23/20 05:15 05:30 05:45 Temperature Pulse Rate 105 H 104 H 104 H Pulse Rate [ From Monitor] Respiratory 31 H 30 H 30 H Rate Blood Pressure 122/75 107/73 103/70 O2 Sat by Pulse 94 89 Oximetry 06/23/20 06/23/20 06/23/20 06:00 06:16 06:30 Temperature Pulse Rate 102 H 112 H 108 H Pulse Rate [ From Monitor] Respiratory 30 H 23 30 H Rate Blood Pressure 101/72 89/51 107/71 O2 Sat by Pulse 88 98 Oximetry 06/23/20 06/23/20 06/23/20 06:45 07:00 07:15 Temperature Pulse Rate 107 H 106 H 104 H Pulse Rate [ From Monitor] Respiratory 30 H 17 27 H Rate Blood Pressure 102/69 100/58 112/69 O2 Sat by Pulse 99 98 95 Oximetry 06/23/20 06/23/20 06/23/20 07:30 07:45 08:00 Temperature 98.1 F Pulse Rate 104 H 113 H 105 H Pulse Rate [ 103 H From Monitor] Respiratory 19 22 21 Rate Blood Pressure 107/66 108/69 99/61 O2 Sat by Pulse 100 98 97 Oximetry 06/23/20 06/23/20 06/23/20 08:15 08:30 08:45 Temperature Pulse Rate 101 H 98 H 95 H Pulse Rate [ From Monitor] Respiratory 23 30 H 30 H Rate Blood Pressure 91/60 87/56 86/54 O2 Sat by Pulse 98 99 97 Oximetry 06/23/20 06/23/20 06/23/20 09:00 09:15 09:30 Temperature Pulse Rate 117 H 115 H 114 H Pulse Rate [ From Monitor] Respiratory 22 21 21 Rate Blood Pressure 120/80 119/75 122/76 O2 Sat by Pulse 99 97 97 Oximetry 06/23/20 06/23/20 06/23/20 09:45 10:00 10:15 Temperature Pulse Rate 113 H 111 H 114 H Pulse Rate [ From Monitor] Respiratory 30 H 17 28 H Rate Blood Pressure 92/52 86/51 76/50 O2 Sat by Pulse 94 94 92 Oximetry 06/23/20 06/23/20 06/23/20 10:30 10:45 11:00 Temperature Pulse Rate 110 H 110 H 107 H Pulse Rate [ From Monitor] Respiratory 17 23 24 Rate Blood Pressure 90/49 81/54 89/54 O2 Sat by Pulse 89 95 97 Oximetry 06/23/20 06/23/20 06/23/20 11:15 11:30 11:41 Temperature Pulse Rate 106 H 104 H 103 H Pulse Rate [ From Monitor] Respiratory 27 H 30 H Rate Blood Pressure 80/54 90/58 90/58 O2 Sat by Pulse 99 Oximetry 06/23/20 06/23/20 06/23/20 11:45 12:00 12:15 Temperature 98.9 F Pulse Rate 102 H 101 H 102 H Pulse Rate [ From Monitor] Respiratory 30 H 30 H 30 H Rate Blood Pressure 93/56 96/59 97/62 O2 Sat by Pulse 98 Oximetry 06/23/20 06/23/20 06/23/20 12:30 12:45 13:00 Temperature Pulse Rate 99 H 97 H 97 H Pulse Rate [ From Monitor] Respiratory 30 H 30 H 30 H Rate Blood Pressure 98/61 94/60 94/60 O2 Sat by Pulse Oximetry 06/23/20 06/23/20 13:15 13:30 Temperature Pulse Rate 95 H 93 H Pulse Rate [ From Monitor] Respiratory 30 H 30 H Rate Blood Pressure 94/62 93/58 O2 Sat by Pulse 97 Oximetry Constitutional: appears uncomfortable, other (middle aged obese male with mildly increased respiratory effort at rest on MVS) Eyes: non-icteric ENT: oropharynx moist, other (ETT 24 cm CHILO) Neck: supple, no JVD Effort: mildly labored Ascultation: Bilateral: diminished breath sounds, rhonchi (scant), other (right chest tube) Percussion: Bilateral: not dull Cardiovascular: regular rate and rhythm, other (No R/M) Gastrointestinal: normoactive bowel sounds, soft, non-tender, other (distended and firm) Integumentary: normal Extremities: no cyanosis, no edema, pulses normal, no ischemia or petechiae Neurologic: pupils equal and round, CN II-XII normal, other (unable top assess re: AMS) Psychiatric: other (sedated) CBC and BMP: 06/23/20 09:41 06/23/20 06:50 ABG, PT/INR, D-dimer: ABG ABG pH 7.360 (7.320-7.450) 06/23/20 05:17 POC ABG pCO2 69.7 mmHg (32.0-48.0) H 06/23/20 05:17 ABG pCO2 69.8 mm Hg 06/22/20 03:50 POC ABG pO2 63.3 mmHg (83-108) L 06/23/20 05:17 ABG pO2 89.6 mm Hg (80.0-90.0) 06/22/20 03:50 POC ABG HCO3 38.5 06/23/20 05:17 ABG O2 Saturation 97.1 % (95.0-99.0) 06/22/20 03:50 PT/INR, D-dimer PT 11.8 Sec. (12.2-14.9) L 06/22/20 14:29 INR 0.88 (0.87-1.13) 06/22/20 14:29 D-Dimer 1887.82 ng/mlDDU (0-234) H 05/20/20 08:16 Abnormal lab findings: Abnormal Labs 05/09/20 05/09/20 05/09/20 12:59 12:59 12:59 WBC 11.8 H RBC Hgb Hct MCV 96 H MCH 34 H MCHC 35 H RDW Lymph % (Auto) 6.9 L Lymph # (Auto) 0.8 L Seg Neutrophils % 87.5 H Seg Neuts % (Manual) Lymphocytes % (Manual) Nucleated RBC % Seg Neutrophils # 10.3 H Seg Neutrophils # Man Lymphocytes # (Manual) Monocytes # (Manual) PT INR APTT D-Dimer ABG pH POC ABG pCO2 POC ABG pO2 ABG pO2 ABG HCO3 ABG O2 Saturation ABG Base Excess ABG Hemoglobin ABG Oxyhemoglobin ABG Sodium ABG Potassium ABG Chloride ABG Glucose Oxyhemoglobin Sodium 130 L Potassium 3.5 L Chloride 86.4 L Carbon Dioxide BUN 33 H Creatinine 2.3 H Glucose 156 H POC Glucose Lactic Acid Calcium Magnesium Ferritin Total Bilirubin 3.40 H Direct Bilirubin 1.7 H AST 385 H ALT 134 H Alkaline Phosphatase Lactate Dehydrogenase C-Reactive Protein Total Protein Albumin 3.0 L Triglycerides Arterial Blood Glucose Arterial Blood Ionized Calcium Urine WBC (Auto) Coronavirus (PCR) SARS-CoV-2 IgG Ab Crossmatch 05/09/20 05/09/20 05/09/20 12:59 12:59 12:59 WBC RBC Hgb Hct MCV MCH MCHC RDW Lymph % (Auto) Lymph # (Auto) Seg Neutrophils % Seg Neuts % (Manual) Lymphocytes % (Manual) Nucleated RBC % Seg Neutrophils # Seg Neutrophils # Man Lymphocytes # (Manual) Monocytes # (Manual) PT INR APTT D-Dimer 3242.51 H ABG pH POC ABG pCO2 POC ABG pO2 ABG pO2 ABG HCO3 ABG O2 Saturation ABG Base Excess ABG Hemoglobin ABG Oxyhemoglobin ABG Sodium ABG Potassium ABG Chloride ABG Glucose Oxyhemoglobin Sodium Potassium Chloride Carbon Dioxide BUN Creatinine Glucose 158 H POC Glucose Lactic Acid 3.50 H* Calcium Magnesium Ferritin Total Bilirubin Direct Bilirubin AST ALT Alkaline Phosphatase Lactate Dehydrogenase 2166 H C-Reactive Protein 39.00 H Total Protein Albumin Triglycerides Arterial Blood Glucose Arterial Blood Ionized Calcium Urine WBC (Auto) Coronavirus (PCR) SARS-CoV-2 IgG Ab Crossmatch 05/09/20 05/09/20 05/09/20 12:59 14:20 14:20 WBC RBC Hgb Hct MCV MCH MCHC RDW Lymph % (Auto) Lymph # (Auto) Seg Neutrophils % Seg Neuts % (Manual) Lymphocytes % (Manual) Nucleated RBC % Seg Neutrophils # Seg Neutrophils # Man Lymphocytes # (Manual) Monocytes # (Manual) PT INR APTT D-Dimer 2861.78 H ABG pH POC ABG pCO2 POC ABG pO2 ABG pO2 ABG HCO3 ABG O2 Saturation ABG Base Excess ABG Hemoglobin ABG Oxyhemoglobin ABG Sodium ABG Potassium ABG Chloride ABG Glucose Oxyhemoglobin Sodium Potassium Chloride Carbon Dioxide BUN Creatinine Glucose POC Glucose Lactic Acid 2.20 H* Calcium Magnesium Ferritin 01547.0 H Total Bilirubin Direct Bilirubin AST ALT Alkaline Phosphatase Lactate Dehydrogenase C-Reactive Protein Total Protein Albumin Triglycerides Arterial Blood Glucose Arterial Blood Ionized Calcium Urine WBC (Auto) Coronavirus (PCR) SARS-CoV-2 IgG Ab Crossmatch 05/09/20 05/09/20 05/09/20 14:20 14:20 15:56 WBC RBC Hgb Hct MCV MCH MCHC RDW Lymph % (Auto) Lymph # (Auto) Seg Neutrophils % Seg Neuts % (Manual) Lymphocytes % (Manual) Nucleated RBC % Seg Neutrophils # Seg Neutrophils # Man Lymphocytes # (Manual) Monocytes # (Manual) PT INR APTT D-Dimer ABG pH POC ABG pCO2 POC ABG pO2 57.3 L ABG pO2 ABG HCO3 ABG O2 Saturation ABG Base Excess ABG Hemoglobin ABG Oxyhemoglobin 86.3 L ABG Sodium 129.9 L ABG Potassium ABG Chloride ABG Glucose 146 H Oxyhemoglobin Sodium Potassium Chloride Carbon Dioxide BUN Creatinine Glucose 143 H POC Glucose Lactic Acid Calcium Magnesium Ferritin 71874.0 H Total Bilirubin Direct Bilirubin AST ALT Alkaline Phosphatase Lactate Dehydrogenase 1953 H C-Reactive Protein 33.50 H Total Protein Albumin Triglycerides Arterial Blood Glucose 146 H Arterial Blood Ionized Calcium 3.9 L Urine WBC (Auto) Coronavirus (PCR) SARS-CoV-2 IgG Ab Crossmatch 05/10/20 05/10/20 05/10/20 10:32 10:32 18:50 WBC 15.4 H RBC Hgb Hct MCV 97 H MCH 33 H MCHC RDW 13.1 L Lymph % (Auto) Lymph # (Auto) Seg Neutrophils % Seg Neuts % (Manual) 89.0 H Lymphocytes % (Manual) 8.0 L Nucleated RBC % Seg Neutrophils # Seg Neutrophils # Man 13.7 H Lymphocytes # (Manual) Monocytes # (Manual) PT INR APTT D-Dimer ABG pH POC ABG pCO2 POC ABG pO2 ABG pO2 ABG HCO3 ABG O2 Saturation ABG Base Excess ABG Hemoglobin ABG Oxyhemoglobin ABG Sodium ABG Potassium ABG Chloride ABG Glucose Oxyhemoglobin Sodium 136 L Potassium Chloride 97.4 L Carbon Dioxide BUN 37 H Creatinine 1.7 H Glucose 209 H POC Glucose Lactic Acid Calcium Magnesium Ferritin > 2000.0 H Total Bilirubin Direct Bilirubin AST ALT Alkaline Phosphatase Lactate Dehydrogenase C-Reactive Protein Total Protein Albumin Triglycerides Arterial Blood Glucose Arterial Blood Ionized Calcium Urine WBC (Auto) Coronavirus (PCR) SARS-CoV-2 IgG Ab Crossmatch 05/10/20 05/10/20 05/10/20 18:50 19:00 Unknown WBC RBC Hgb Hct MCV MCH MCHC RDW Lymph % (Auto) Lymph # (Auto) Seg Neutrophils % Seg Neuts % (Manual) Lymphocytes % (Manual) Nucleated RBC % Seg Neutrophils # Seg Neutrophils # Man Lymphocytes # (Manual) Monocytes # (Manual) PT INR APTT D-Dimer > 05171 H ABG pH POC ABG pCO2 POC ABG pO2 ABG pO2 ABG HCO3 ABG O2 Saturation ABG Base Excess ABG Hemoglobin ABG Oxyhemoglobin ABG Sodium ABG Potassium ABG Chloride ABG Glucose Oxyhemoglobin Sodium Potassium Chloride Carbon Dioxide BUN Creatinine Glucose POC Glucose Lactic Acid Calcium Magnesium Ferritin Total Bilirubin Direct Bilirubin AST ALT Alkaline Phosphatase Lactate Dehydrogenase 1879 H C-Reactive Protein 24.80 H Total Protein Albumin Triglycerides Arterial Blood Glucose Arterial Blood Ionized Calcium Urine WBC (Auto) 11.0 H Coronavirus (PCR) SARS-CoV-2 IgG Ab Crossmatch 05/10/20 05/11/20 05/11/20 Unknown 07:30 07:30 WBC RBC Hgb Hct MCV MCH MCHC RDW Lymph % (Auto) Lymph # (Auto) Seg Neutrophils % Seg Neuts % (Manual) Lymphocytes % (Manual) Nucleated RBC % Seg Neutrophils # Seg Neutrophils # Man Lymphocytes # (Manual) Monocytes # (Manual) PT INR APTT D-Dimer > 2000 H ABG pH POC ABG pCO2 POC ABG pO2 ABG pO2 ABG HCO3 ABG O2 Saturation ABG Base Excess ABG Hemoglobin ABG Oxyhemoglobin ABG Sodium ABG Potassium ABG Chloride ABG Glucose Oxyhemoglobin Sodium Potassium Chloride 96.3 L Carbon Dioxide BUN 36 H Creatinine Glucose 161 H POC Glucose Lactic Acid Calcium 8.3 L Magnesium Ferritin Total Bilirubin 1.50 H Direct Bilirubin 0.6 H AST 178 H ALT 111 H Alkaline Phosphatase Lactate Dehydrogenase C-Reactive Protein Total Protein Albumin 3.0 L Triglycerides Arterial Blood Glucose Arterial Blood Ionized Calcium Urine WBC (Auto) Coronavirus (PCR) Positive A SARS-CoV-2 IgG Ab Crossmatch 05/11/20 05/11/20 05/11/20 07:30 07:30 07:30 WBC RBC Hgb Hct MCV MCH MCHC RDW Lymph % (Auto) Lymph # (Auto) Seg Neutrophils % Seg Neuts % (Manual) Lymphocytes % (Manual) Nucleated RBC % Seg Neutrophils # Seg Neutrophils # Man Lymphocytes # (Manual) Monocytes # (Manual) PT INR APTT D-Dimer ABG pH POC ABG pCO2 POC ABG pO2 ABG pO2 ABG HCO3 ABG O2 Saturation ABG Base Excess ABG Hemoglobin ABG Oxyhemoglobin ABG Sodium ABG Potassium ABG Chloride ABG Glucose Oxyhemoglobin Sodium Potassium Chloride Carbon Dioxide BUN Creatinine Glucose POC Glucose Lactic Acid Calcium Magnesium Ferritin 38420.0 H Total Bilirubin Direct Bilirubin AST ALT Alkaline Phosphatase Lactate Dehydrogenase 1523 H C-Reactive Protein 12.90 H Total Protein Albumin Triglycerides Arterial Blood Glucose Arterial Blood Ionized Calcium Urine WBC (Auto) Coronavirus (PCR) SARS-CoV-2 IgG Ab Reactive A Crossmatch 05/13/20 05/13/20 05/15/20 05:20 05:20 08:15 WBC RBC Hgb Hct MCV MCH MCHC RDW Lymph % (Auto) Lymph # (Auto) Seg Neutrophils % Seg Neuts % (Manual) Lymphocytes % (Manual) Nucleated RBC % Seg Neutrophils # Seg Neutrophils # Man Lymphocytes # (Manual) Monocytes # (Manual) PT INR APTT D-Dimer > 77320 H 5318.28 H ABG pH POC ABG pCO2 POC ABG pO2 ABG pO2 ABG HCO3 ABG O2 Saturation ABG Base Excess ABG Hemoglobin ABG Oxyhemoglobin ABG Sodium ABG Potassium ABG Chloride ABG Glucose Oxyhemoglobin Sodium Potassium Chloride Carbon Dioxide 32 H BUN 30 H Creatinine Glucose 156 H POC Glucose Lactic Acid Calcium Magnesium 2.60 H Ferritin Total Bilirubin 1.40 H Direct Bilirubin AST 121 H ALT 119 H Alkaline Phosphatase Lactate Dehydrogenase 957 H C-Reactive Protein 4.00 H Total Protein Albumin 3.0 L Triglycerides Arterial Blood Glucose Arterial Blood Ionized Calcium Urine WBC (Auto) Coronavirus (PCR) SARS-CoV-2 IgG Ab Crossmatch 05/15/20 05/15/20 05/15/20 08:15 08:15 08:15 WBC 12.4 H RBC Hgb Hct MCV 98 H MCH 33 H MCHC RDW Lymph % (Auto) 9.7 L Lymph # (Auto) Seg Neutrophils % 86.8 H Seg Neuts % (Manual) Lymphocytes % (Manual) Nucleated RBC % Seg Neutrophils # 10.8 H Seg Neutrophils # Man Lymphocytes # (Manual) Monocytes # (Manual) PT INR APTT D-Dimer ABG pH POC ABG pCO2 POC ABG pO2 ABG pO2 ABG HCO3 ABG O2 Saturation ABG Base Excess ABG Hemoglobin ABG Oxyhemoglobin ABG Sodium ABG Potassium ABG Chloride ABG Glucose Oxyhemoglobin Sodium Potassium Chloride 94.8 L Carbon Dioxide 32 H BUN 22 H Creatinine Glucose 115 H POC Glucose Lactic Acid Calcium 8.3 L Magnesium Ferritin 2494.0 H Total Bilirubin Direct Bilirubin AST 73 H ALT 121 H Alkaline Phosphatase Lactate Dehydrogenase 835 H C-Reactive Protein 3.40 H Total Protein 6.1 L Albumin 3.0 L Triglycerides Arterial Blood Glucose Arterial Blood Ionized Calcium Urine WBC (Auto) Coronavirus (PCR) SARS-CoV-2 IgG Ab Crossmatch 05/17/20 05/17/20 05/17/20 05:50 05:50 05:50 WBC RBC Hgb Hct MCV MCH MCHC RDW Lymph % (Auto) Lymph # (Auto) Seg Neutrophils % Seg Neuts % (Manual) Lymphocytes % (Manual) Nucleated RBC % Seg Neutrophils # Seg Neutrophils # Man Lymphocytes # (Manual) Monocytes # (Manual) PT INR APTT D-Dimer 2911.42 H ABG pH POC ABG pCO2 POC ABG pO2 ABG pO2 ABG HCO3 ABG O2 Saturation ABG Base Excess ABG Hemoglobin ABG Oxyhemoglobin ABG Sodium ABG Potassium ABG Chloride ABG Glucose Oxyhemoglobin Sodium 136 L Potassium Chloride 96.0 L Carbon Dioxide 34 H BUN 22 H Creatinine Glucose 140 H POC Glucose Lactic Acid Calcium Magnesium Ferritin 2082.0 H Total Bilirubin Direct Bilirubin AST ALT 75 H Alkaline Phosphatase Lactate Dehydrogenase 601 H C-Reactive Protein 2.70 H Total Protein Albumin 2.9 L Triglycerides Arterial Blood Glucose Arterial Blood Ionized Calcium Urine WBC (Auto) Coronavirus (PCR) SARS-CoV-2 IgG Ab Crossmatch 05/17/20 05/18/20 05/20/20 05:50 12:22 08:16 WBC RBC Hgb Hct MCV 98 H MCH 33 H MCHC RDW Lymph % (Auto) 8.0 L Lymph # (Auto) 0.8 L Seg Neutrophils % 89.3 H Seg Neuts % (Manual) Lymphocytes % (Manual) Nucleated RBC % Seg Neutrophils # 8.8 H Seg Neutrophils # Man Lymphocytes # (Manual) Monocytes # (Manual) PT INR APTT D-Dimer 1887.82 H ABG pH POC ABG pCO2 POC ABG pO2 ABG pO2 ABG HCO3 ABG O2 Saturation ABG Base Excess ABG Hemoglobin ABG Oxyhemoglobin ABG Sodium ABG Potassium ABG Chloride ABG Glucose Oxyhemoglobin Sodium Potassium Chloride Carbon Dioxide BUN Creatinine Glucose POC Glucose 178 H Lactic Acid Calcium Magnesium Ferritin Total Bilirubin Direct Bilirubin AST ALT Alkaline Phosphatase Lactate Dehydrogenase C-Reactive Protein Total Protein Albumin Triglycerides Arterial Blood Glucose Arterial Blood Ionized Calcium Urine WBC (Auto) Coronavirus (PCR) SARS-CoV-2 IgG Ab Crossmatch 05/20/20 05/20/20 05/21/20 08:16 08:16 21:10 WBC RBC Hgb Hct MCV MCH MCHC RDW Lymph % (Auto) Lymph # (Auto) Seg Neutrophils % Seg Neuts % (Manual) Lymphocytes % (Manual) Nucleated RBC % Seg Neutrophils # Seg Neutrophils # Man Lymphocytes # (Manual) Monocytes # (Manual) PT INR APTT D-Dimer ABG pH 7.483 H POC ABG pCO2 POC ABG pO2 ABG pO2 50.0 L ABG HCO3 27.0 H ABG O2 Saturation 86.2 L ABG Base Excess 3.7 H ABG Hemoglobin ABG Oxyhemoglobin ABG Sodium ABG Potassium ABG Chloride ABG Glucose Oxyhemoglobin 84.2 L Sodium Potassium Chloride Carbon Dioxide BUN Creatinine Glucose POC Glucose Lactic Acid Calcium Magnesium Ferritin 1960.0 H Total Bilirubin Direct Bilirubin AST ALT Alkaline Phosphatase Lactate Dehydrogenase 705 H C-Reactive Protein 3.10 H Total Protein Albumin Triglycerides Arterial Blood Glucose Arterial Blood Ionized Calcium Urine WBC (Auto) Coronavirus (PCR) SARS-CoV-2 IgG Ab Crossmatch 05/22/20 05/22/20 05/22/20 04:01 07:53 07:53 WBC 19.2 H RBC Hgb Hct MCV 98 H MCH 34 H MCHC RDW Lymph % (Auto) Lymph # (Auto) Seg Neutrophils % Seg Neuts % (Manual) 96.0 H Lymphocytes % (Manual) 1.0 L Nucleated RBC % Seg Neutrophils # Seg Neutrophils # Man 18.4 H Lymphocytes # (Manual) 0.2 L Monocytes # (Manual) PT INR APTT D-Dimer ABG pH POC ABG pCO2 53.8 H POC ABG pO2 125.5 H ABG pO2 ABG HCO3 ABG O2 Saturation ABG Base Excess ABG Hemoglobin ABG Oxyhemoglobin ABG Sodium 131.8 L ABG Potassium 4.8 H ABG Chloride 94.0 L ABG Glucose 163 H Oxyhemoglobin Sodium 131 L Potassium Chloride 93.4 L Carbon Dioxide BUN 40 H Creatinine Glucose 176 H POC Glucose Lactic Acid Calcium Magnesium 2.70 H Ferritin Total Bilirubin 1.80 H Direct Bilirubin AST 45 H ALT 116 H Alkaline Phosphatase 181 H Lactate Dehydrogenase C-Reactive Protein Total Protein Albumin 2.6 L Triglycerides Arterial Blood Glucose 163 H Arterial Blood Ionized Calcium 4.5 L Urine WBC (Auto) Coronavirus (PCR) SARS-CoV-2 IgG Ab Crossmatch 05/23/20 05/24/20 05/24/20 04:17 03:07 04:08 WBC RBC Hgb Hct MCV MCH MCHC RDW Lymph % (Auto) Lymph # (Auto) Seg Neutrophils % Seg Neuts % (Manual) Lymphocytes % (Manual) Nucleated RBC % Seg Neutrophils # Seg Neutrophils # Man Lymphocytes # (Manual) Monocytes # (Manual) PT INR APTT D-Dimer ABG pH 7.328 L POC ABG pCO2 POC ABG pO2 ABG pO2 72.8 L 73.4 L ABG HCO3 31.0 H 34.0 H ABG O2 Saturation 93.5 L ABG Base Excess 3.5 H 7.7 H ABG Hemoglobin 13.3 L 12.1 L ABG Oxyhemoglobin ABG Sodium ABG Potassium ABG Chloride ABG Glucose Oxyhemoglobin 91.5 L 94.3 L Sodium Potassium Chloride Carbon Dioxide BUN Creatinine Glucose POC Glucose 155 H Lactic Acid Calcium Magnesium Ferritin Total Bilirubin Direct Bilirubin AST ALT Alkaline Phosphatase Lactate Dehydrogenase C-Reactive Protein Total Protein Albumin Triglycerides Arterial Blood Glucose Arterial Blood Ionized Calcium Urine WBC (Auto) Coronavirus (PCR) SARS-CoV-2 IgG Ab Crossmatch 05/24/20 05/24/20 05/24/20 09:33 12:21 17:52 WBC RBC Hgb Hct MCV MCH MCHC RDW Lymph % (Auto) Lymph # (Auto) Seg Neutrophils % Seg Neuts % (Manual) Lymphocytes % (Manual) Nucleated RBC % Seg Neutrophils # Seg Neutrophils # Man Lymphocytes # (Manual) Monocytes # (Manual) PT INR APTT D-Dimer ABG pH POC ABG pCO2 POC ABG pO2 ABG pO2 ABG HCO3 ABG O2 Saturation ABG Base Excess ABG Hemoglobin ABG Oxyhemoglobin ABG Sodium ABG Potassium ABG Chloride ABG Glucose Oxyhemoglobin Sodium Potassium Chloride Carbon Dioxide 34 H D BUN 28 H Creatinine 0.7 L Glucose 168 H POC Glucose 173 H 164 H Lactic Acid Calcium Magnesium Ferritin Total Bilirubin Direct Bilirubin AST ALT Alkaline Phosphatase Lactate Dehydrogenase C-Reactive Protein Total Protein Albumin Triglycerides Arterial Blood Glucose Arterial Blood Ionized Calcium Urine WBC (Auto) Coronavirus (PCR) SARS-CoV-2 IgG Ab Crossmatch 05/24/20 05/25/20 05/25/20 23:47 04:29 05:46 WBC RBC Hgb Hct MCV MCH MCHC RDW Lymph % (Auto) Lymph # (Auto) Seg Neutrophils % Seg Neuts % (Manual) Lymphocytes % (Manual) Nucleated RBC % Seg Neutrophils # Seg Neutrophils # Man Lymphocytes # (Manual) Monocytes # (Manual) PT INR APTT D-Dimer ABG pH POC ABG pCO2 68.6 H POC ABG pO2 ABG pO2 ABG HCO3 ABG O2 Saturation ABG Base Excess ABG Hemoglobin ABG Oxyhemoglobin ABG Sodium ABG Potassium 4.7 H ABG Chloride ABG Glucose 226 H Oxyhemoglobin Sodium Potassium Chloride Carbon Dioxide BUN Creatinine Glucose POC Glucose 171 H 201 H Lactic Acid Calcium Magnesium Ferritin Total Bilirubin Direct Bilirubin AST ALT Alkaline Phosphatase Lactate Dehydrogenase C-Reactive Protein Total Protein Albumin Triglycerides Arterial Blood Glucose 226 H Arterial Blood Ionized Calcium Urine WBC (Auto) Coronavirus (PCR) SARS-CoV-2 IgG Ab Crossmatch 05/25/20 05/25/20 05/25/20 08:37 08:37 12:38 WBC 12.0 H RBC 3.64 L Hgb Hct MCV 99 H MCH 33 H MCHC RDW Lymph % (Auto) Lymph # (Auto) Seg Neutrophils % Seg Neuts % (Manual) Lymphocytes % (Manual) Nucleated RBC % Seg Neutrophils # Seg Neutrophils # Man Lymphocytes # (Manual) Monocytes # (Manual) PT INR APTT D-Dimer ABG pH POC ABG pCO2 POC ABG pO2 ABG pO2 ABG HCO3 ABG O2 Saturation ABG Base Excess ABG Hemoglobin ABG Oxyhemoglobin ABG Sodium ABG Potassium ABG Chloride ABG Glucose Oxyhemoglobin Sodium Potassium Chloride 97.3 L Carbon Dioxide 35 H BUN 25 H Creatinine 0.7 L Glucose 191 H POC Glucose 182 H Lactic Acid Calcium Magnesium Ferritin Total Bilirubin Direct Bilirubin AST ALT Alkaline Phosphatase Lactate Dehydrogenase C-Reactive Protein Total Protein Albumin Triglycerides Arterial Blood Glucose Arterial Blood Ionized Calcium Urine WBC (Auto) Coronavirus (PCR) SARS-CoV-2 IgG Ab Crossmatch 05/25/20 05/26/20 05/26/20 18:16 00:06 04:50 WBC RBC Hgb Hct MCV MCH MCHC RDW Lymph % (Auto) Lymph # (Auto) Seg Neutrophils % Seg Neuts % (Manual) Lymphocytes % (Manual) Nucleated RBC % Seg Neutrophils # Seg Neutrophils # Man Lymphocytes # (Manual) Monocytes # (Manual) PT INR APTT D-Dimer ABG pH POC ABG pCO2 POC ABG pO2 ABG pO2 221.5 H ABG HCO3 40.4 H ABG O2 Saturation 99.3 H ABG Base Excess 12.8 H ABG Hemoglobin 10.4 L ABG Oxyhemoglobin ABG Sodium ABG Potassium ABG Chloride ABG Glucose Oxyhemoglobin Sodium Potassium Chloride Carbon Dioxide BUN Creatinine Glucose POC Glucose 176 H 152 H Lactic Acid Calcium Magnesium Ferritin Total Bilirubin Direct Bilirubin AST ALT Alkaline Phosphatase Lactate Dehydrogenase C-Reactive Protein Total Protein Albumin Triglycerides Arterial Blood Glucose Arterial Blood Ionized Calcium Urine WBC (Auto) Coronavirus (PCR) SARS-CoV-2 IgG Ab Crossmatch 05/26/20 05/26/20 05/26/20 06:11 07:51 07:51 WBC 13.4 H RBC 3.64 L Hgb Hct MCV 98 H MCH 33 H MCHC RDW Lymph % (Auto) Lymph # (Auto) Seg Neutrophils % Seg Neuts % (Manual) Lymphocytes % (Manual) Nucleated RBC % Seg Neutrophils # Seg Neutrophils # Man Lymphocytes # (Manual) Monocytes # (Manual) PT INR APTT D-Dimer ABG pH POC ABG pCO2 POC ABG pO2 ABG pO2 ABG HCO3 ABG O2 Saturation ABG Base Excess ABG Hemoglobin ABG Oxyhemoglobin ABG Sodium ABG Potassium ABG Chloride ABG Glucose Oxyhemoglobin Sodium Potassium Chloride 96.6 L Carbon Dioxide 39 H BUN 29 H Creatinine 0.7 L Glucose 174 H POC Glucose 165 H Lactic Acid Calcium Magnesium Ferritin Total Bilirubin Direct Bilirubin AST ALT Alkaline Phosphatase Lactate Dehydrogenase C-Reactive Protein Total Protein Albumin Triglycerides Arterial Blood Glucose Arterial Blood Ionized Calcium Urine WBC (Auto) Coronavirus (PCR) SARS-CoV-2 IgG Ab Crossmatch 05/26/20 05/27/20 05/27/20 23:23 03:43 05:29 WBC RBC Hgb Hct MCV MCH MCHC RDW Lymph % (Auto) Lymph # (Auto) Seg Neutrophils % Seg Neuts % (Manual) Lymphocytes % (Manual) Nucleated RBC % Seg Neutrophils # Seg Neutrophils # Man Lymphocytes # (Manual) Monocytes # (Manual) PT INR APTT D-Dimer ABG pH 7.480 H POC ABG pCO2 52.4 H POC ABG pO2 61.4 L ABG pO2 ABG HCO3 ABG O2 Saturation ABG Base Excess ABG Hemoglobin ABG Oxyhemoglobin ABG Sodium 134.9 L ABG Potassium ABG Chloride 95.0 L ABG Glucose 221 H Oxyhemoglobin Sodium Potassium Chloride Carbon Dioxide BUN Creatinine Glucose POC Glucose 169 H 227 H Lactic Acid Calcium Magnesium Ferritin Total Bilirubin Direct Bilirubin AST ALT Alkaline Phosphatase Lactate Dehydrogenase C-Reactive Protein Total Protein Albumin Triglycerides Arterial Blood Glucose 221 H Arterial Blood Ionized Calcium 4.5 L Urine WBC (Auto) Coronavirus (PCR) SARS-CoV-2 IgG Ab Crossmatch 05/27/20 05/27/20 05/27/20 07:19 12:18 13:50 WBC RBC Hgb Hct MCV MCH MCHC RDW Lymph % (Auto) Lymph # (Auto) Seg Neutrophils % Seg Neuts % (Manual) Lymphocytes % (Manual) Nucleated RBC % Seg Neutrophils # Seg Neutrophils # Man Lymphocytes # (Manual) Monocytes # (Manual) PT INR APTT D-Dimer ABG pH POC ABG pCO2 POC ABG pO2 ABG pO2 ABG HCO3 ABG O2 Saturation ABG Base Excess ABG Hemoglobin ABG Oxyhemoglobin ABG Sodium ABG Potassium ABG Chloride ABG Glucose Oxyhemoglobin Sodium Potassium Chloride Carbon Dioxide BUN Creatinine Glucose POC Glucose 114 H 148 H Lactic Acid Calcium Magnesium Ferritin Total Bilirubin Direct Bilirubin AST ALT Alkaline Phosphatase Lactate Dehydrogenase C-Reactive Protein Total Protein Albumin Triglycerides 247 H Arterial Blood Glucose Arterial Blood Ionized Calcium Urine WBC (Auto) Coronavirus (PCR) SARS-CoV-2 IgG Ab Crossmatch 05/28/20 05/28/20 05/28/20 00:13 04:16 05:22 WBC RBC Hgb Hct MCV MCH MCHC RDW Lymph % (Auto) Lymph # (Auto) Seg Neutrophils % Seg Neuts % (Manual) Lymphocytes % (Manual) Nucleated RBC % Seg Neutrophils # Seg Neutrophils # Man Lymphocytes # (Manual) Monocytes # (Manual) PT INR APTT D-Dimer ABG pH POC ABG pCO2 64.4 H POC ABG pO2 60.5 L ABG pO2 ABG HCO3 ABG O2 Saturation ABG Base Excess ABG Hemoglobin ABG Oxyhemoglobin ABG Sodium ABG Potassium ABG Chloride 95.0 L ABG Glucose 209 H Oxyhemoglobin Sodium Potassium Chloride Carbon Dioxide BUN Creatinine Glucose POC Glucose 155 H 186 H Lactic Acid Calcium Magnesium Ferritin Total Bilirubin Direct Bilirubin AST ALT Alkaline Phosphatase Lactate Dehydrogenase C-Reactive Protein Total Protein Albumin Triglycerides Arterial Blood Glucose 209 H Arterial Blood Ionized Calcium Urine WBC (Auto) Coronavirus (PCR) SARS-CoV-2 IgG Ab Crossmatch 05/28/20 05/28/20 05/29/20 12:45 17:39 00:37 WBC RBC Hgb Hct MCV MCH MCHC RDW Lymph % (Auto) Lymph # (Auto) Seg Neutrophils % Seg Neuts % (Manual) Lymphocytes % (Manual) Nucleated RBC % Seg Neutrophils # Seg Neutrophils # Man Lymphocytes # (Manual) Monocytes # (Manual) PT INR APTT D-Dimer ABG pH POC ABG pCO2 POC ABG pO2 ABG pO2 ABG HCO3 ABG O2 Saturation ABG Base Excess ABG Hemoglobin ABG Oxyhemoglobin ABG Sodium ABG Potassium ABG Chloride ABG Glucose Oxyhemoglobin Sodium Potassium Chloride Carbon Dioxide BUN Creatinine Glucose POC Glucose 143 H 164 H 221 H Lactic Acid Calcium Magnesium Ferritin Total Bilirubin Direct Bilirubin AST ALT Alkaline Phosphatase Lactate Dehydrogenase C-Reactive Protein Total Protein Albumin Triglycerides Arterial Blood Glucose Arterial Blood Ionized Calcium Urine WBC (Auto) Coronavirus (PCR) SARS-CoV-2 IgG Ab Crossmatch 05/29/20 05/29/20 05/29/20 04:15 05:33 12:34 WBC RBC Hgb Hct MCV MCH MCHC RDW Lymph % (Auto) Lymph # (Auto) Seg Neutrophils % Seg Neuts % (Manual) Lymphocytes % (Manual) Nucleated RBC % Seg Neutrophils # Seg Neutrophils # Man Lymphocytes # (Manual) Monocytes # (Manual) PT INR APTT D-Dimer ABG pH 7.463 H POC ABG pCO2 56.3 H POC ABG pO2 81.2 L ABG pO2 ABG HCO3 ABG O2 Saturation ABG Base Excess ABG Hemoglobin ABG Oxyhemoglobin ABG Sodium ABG Potassium ABG Chloride 96.0 L ABG Glucose 194 H Oxyhemoglobin Sodium Potassium Chloride Carbon Dioxide BUN Creatinine Glucose POC Glucose 133 H 221 H Lactic Acid Calcium Magnesium Ferritin Total Bilirubin Direct Bilirubin AST ALT Alkaline Phosphatase Lactate Dehydrogenase C-Reactive Protein Total Protein Albumin Triglycerides Arterial Blood Glucose 194 H Arterial Blood Ionized Calcium 4.5 L Urine WBC (Auto) Coronavirus (PCR) SARS-CoV-2 IgG Ab Crossmatch 05/29/20 05/30/20 05/30/20 18:07 00:12 05:38 WBC RBC Hgb Hct MCV MCH MCHC RDW Lymph % (Auto) Lymph # (Auto) Seg Neutrophils % Seg Neuts % (Manual) Lymphocytes % (Manual) Nucleated RBC % Seg Neutrophils # Seg Neutrophils # Man Lymphocytes # (Manual) Monocytes # (Manual) PT INR APTT D-Dimer ABG pH POC ABG pCO2 POC ABG pO2 ABG pO2 ABG HCO3 ABG O2 Saturation ABG Base Excess ABG Hemoglobin ABG Oxyhemoglobin ABG Sodium ABG Potassium ABG Chloride ABG Glucose Oxyhemoglobin Sodium Potassium Chloride Carbon Dioxide BUN Creatinine Glucose POC Glucose 162 H 190 H 208 H Lactic Acid Calcium Magnesium Ferritin Total Bilirubin Direct Bilirubin AST ALT Alkaline Phosphatase Lactate Dehydrogenase C-Reactive Protein Total Protein Albumin Triglycerides Arterial Blood Glucose Arterial Blood Ionized Calcium Urine WBC (Auto) Coronavirus (PCR) SARS-CoV-2 IgG Ab Crossmatch 05/30/20 05/30/20 05/30/20 09:30 11:35 11:54 WBC 12.4 H RBC 3.48 L Hgb 11.3 L Hct 34.6 L MCV 99 H MCH 33 H MCHC RDW Lymph % (Auto) Lymph # (Auto) Seg Neutrophils % Seg Neuts % (Manual) Lymphocytes % (Manual) Nucleated RBC % Seg Neutrophils # Seg Neutrophils # Man Lymphocytes # (Manual) Monocytes # (Manual) PT INR APTT D-Dimer ABG pH 7.455 H POC ABG pCO2 57.5 H POC ABG pO2 81.5 L ABG pO2 ABG HCO3 ABG O2 Saturation ABG Base Excess ABG Hemoglobin ABG Oxyhemoglobin ABG Sodium ABG Potassium ABG Chloride 96.0 L ABG Glucose 204 H Oxyhemoglobin Sodium Potassium Chloride Carbon Dioxide BUN Creatinine Glucose POC Glucose 183 H Lactic Acid Calcium Magnesium Ferritin Total Bilirubin Direct Bilirubin AST ALT Alkaline Phosphatase Lactate Dehydrogenase C-Reactive Protein Total Protein Albumin Triglycerides Arterial Blood Glucose 204 H Arterial Blood Ionized Calcium Urine WBC (Auto) Coronavirus (PCR) SARS-CoV-2 IgG Ab Crossmatch 05/30/20 05/31/20 05/31/20 18:01 00:10 03:22 WBC RBC Hgb Hct MCV MCH MCHC RDW Lymph % (Auto) Lymph # (Auto) Seg Neutrophils % Seg Neuts % (Manual) Lymphocytes % (Manual) Nucleated RBC % Seg Neutrophils # Seg Neutrophils # Man Lymphocytes # (Manual) Monocytes # (Manual) PT INR APTT D-Dimer ABG pH POC ABG pCO2 60.4 H POC ABG pO2 71.5 L ABG pO2 ABG HCO3 ABG O2 Saturation ABG Base Excess ABG Hemoglobin ABG Oxyhemoglobin ABG Sodium ABG Potassium ABG Chloride 96.0 L ABG Glucose 169 H Oxyhemoglobin Sodium Potassium Chloride Carbon Dioxide BUN Creatinine Glucose POC Glucose 184 H 135 H Lactic Acid Calcium Magnesium Ferritin Total Bilirubin Direct Bilirubin AST ALT Alkaline Phosphatase Lactate Dehydrogenase C-Reactive Protein Total Protein Albumin Triglycerides Arterial Blood Glucose 169 H Arterial Blood Ionized Calcium 4.5 L Urine WBC (Auto) Coronavirus (PCR) SARS-CoV-2 IgG Ab Crossmatch 05/31/20 05/31/20 05/31/20 05:24 11:18 14:41 WBC RBC Hgb Hct MCV MCH MCHC RDW Lymph % (Auto) Lymph # (Auto) Seg Neutrophils % Seg Neuts % (Manual) Lymphocytes % (Manual) Nucleated RBC % Seg Neutrophils # Seg Neutrophils # Man Lymphocytes # (Manual) Monocytes # (Manual) PT INR APTT D-Dimer ABG pH POC ABG pCO2 POC ABG pO2 ABG pO2 ABG HCO3 ABG O2 Saturation ABG Base Excess ABG Hemoglobin ABG Oxyhemoglobin ABG Sodium ABG Potassium ABG Chloride ABG Glucose Oxyhemoglobin Sodium Potassium Chloride 96.8 L Carbon Dioxide 37 H BUN 31 H Creatinine 0.6 L Glucose 213 H POC Glucose 164 H 208 H Lactic Acid Calcium Magnesium Ferritin Total Bilirubin Direct Bilirubin AST ALT Alkaline Phosphatase Lactate Dehydrogenase C-Reactive Protein Total Protein Albumin Triglycerides Arterial Blood Glucose Arterial Blood Ionized Calcium Urine WBC (Auto) Coronavirus (PCR) SARS-CoV-2 IgG Ab Crossmatch 05/31/20 05/31/20 06/01/20 17:37 23:47 03:48 WBC RBC Hgb Hct MCV MCH MCHC RDW Lymph % (Auto) Lymph # (Auto) Seg Neutrophils % Seg Neuts % (Manual) Lymphocytes % (Manual) Nucleated RBC % Seg Neutrophils # Seg Neutrophils # Man Lymphocytes # (Manual) Monocytes # (Manual) PT INR APTT D-Dimer ABG pH POC ABG pCO2 59.7 H POC ABG pO2 73.9 L ABG pO2 ABG HCO3 ABG O2 Saturation ABG Base Excess ABG Hemoglobin ABG Oxyhemoglobin ABG Sodium ABG Potassium ABG Chloride 95.0 L ABG Glucose 256 H Oxyhemoglobin Sodium Potassium Chloride Carbon Dioxide BUN Creatinine Glucose POC Glucose 168 H 178 H Lactic Acid Calcium Magnesium Ferritin Total Bilirubin Direct Bilirubin AST ALT Alkaline Phosphatase Lactate Dehydrogenase C-Reactive Protein Total Protein Albumin Triglycerides Arterial Blood Glucose 256 H Arterial Blood Ionized Calcium Urine WBC (Auto) Coronavirus (PCR) SARS-CoV-2 IgG Ab Crossmatch 06/01/20 06/01/20 06/01/20 05:01 07:47 07:47 WBC 14.4 H RBC 3.46 L Hgb 11.1 L Hct 34.3 L MCV 99 H MCH MCHC RDW Lymph % (Auto) Lymph # (Auto) Seg Neutrophils % Seg Neuts % (Manual) 86.0 H Lymphocytes % (Manual) 9.0 L Nucleated RBC % Seg Neutrophils # Seg Neutrophils # Man 12.4 H Lymphocytes # (Manual) Monocytes # (Manual) PT INR APTT D-Dimer ABG pH POC ABG pCO2 POC ABG pO2 ABG pO2 ABG HCO3 ABG O2 Saturation ABG Base Excess ABG Hemoglobin ABG Oxyhemoglobin ABG Sodium ABG Potassium ABG Chloride ABG Glucose Oxyhemoglobin Sodium Potassium Chloride Carbon Dioxide BUN Creatinine Glucose POC Glucose 197 H Lactic Acid Calcium Magnesium Ferritin Total Bilirubin Direct Bilirubin AST ALT Alkaline Phosphatase Lactate Dehydrogenase C-Reactive Protein Total Protein Albumin Triglycerides 244 H Arterial Blood Glucose Arterial Blood Ionized Calcium Urine WBC (Auto) Coronavirus (PCR) SARS-CoV-2 IgG Ab Crossmatch 06/01/20 06/01/20 06/01/20 07:47 11:46 18:15 WBC RBC Hgb Hct MCV MCH MCHC RDW Lymph % (Auto) Lymph # (Auto) Seg Neutrophils % Seg Neuts % (Manual) Lymphocytes % (Manual) Nucleated RBC % Seg Neutrophils # Seg Neutrophils # Man Lymphocytes # (Manual) Monocytes # (Manual) PT INR APTT D-Dimer ABG pH POC ABG pCO2 POC ABG pO2 ABG pO2 ABG HCO3 ABG O2 Saturation ABG Base Excess ABG Hemoglobin ABG Oxyhemoglobin ABG Sodium ABG Potassium ABG Chloride ABG Glucose Oxyhemoglobin Sodium Potassium Chloride 95.4 L Carbon Dioxide 35 H BUN 30 H Creatinine 0.5 L Glucose 214 H POC Glucose 181 H 221 H Lactic Acid Calcium Magnesium Ferritin Total Bilirubin Direct Bilirubin AST 54 H ALT 235 H Alkaline Phosphatase Lactate Dehydrogenase C-Reactive Protein Total Protein Albumin 2.9 L Triglycerides Arterial Blood Glucose Arterial Blood Ionized Calcium Urine WBC (Auto) Coronavirus (PCR) SARS-CoV-2 IgG Ab Crossmatch 06/01/20 06/02/20 06/02/20 23:12 04:00 05:31 WBC RBC Hgb Hct MCV MCH MCHC RDW Lymph % (Auto) Lymph # (Auto) Seg Neutrophils % Seg Neuts % (Manual) Lymphocytes % (Manual) Nucleated RBC % Seg Neutrophils # Seg Neutrophils # Man Lymphocytes # (Manual) Monocytes # (Manual) PT INR APTT D-Dimer ABG pH 7.465 H POC ABG pCO2 POC ABG pO2 ABG pO2 203.4 H ABG HCO3 41.2 H ABG O2 Saturation 99.3 H ABG Base Excess 15.1 H ABG Hemoglobin 11.5 L ABG Oxyhemoglobin ABG Sodium ABG Potassium ABG Chloride ABG Glucose Oxyhemoglobin Sodium Potassium Chloride Carbon Dioxide BUN Creatinine Glucose POC Glucose 197 H 184 H Lactic Acid Calcium Magnesium Ferritin Total Bilirubin Direct Bilirubin AST ALT Alkaline Phosphatase Lactate Dehydrogenase C-Reactive Protein Total Protein Albumin Triglycerides Arterial Blood Glucose Arterial Blood Ionized Calcium Urine WBC (Auto) Coronavirus (PCR) SARS-CoV-2 IgG Ab Crossmatch 06/02/20 06/02/20 06/02/20 11:49 18:06 23:00 WBC RBC Hgb Hct MCV MCH MCHC RDW Lymph % (Auto) Lymph # (Auto) Seg Neutrophils % Seg Neuts % (Manual) Lymphocytes % (Manual) Nucleated RBC % Seg Neutrophils # Seg Neutrophils # Man Lymphocytes # (Manual) Monocytes # (Manual) PT INR APTT D-Dimer ABG pH POC ABG pCO2 POC ABG pO2 ABG pO2 ABG HCO3 ABG O2 Saturation ABG Base Excess ABG Hemoglobin ABG Oxyhemoglobin ABG Sodium ABG Potassium ABG Chloride ABG Glucose Oxyhemoglobin Sodium Potassium Chloride Carbon Dioxide BUN Creatinine Glucose POC Glucose 195 H 177 H 228 H Lactic Acid Calcium Magnesium Ferritin Total Bilirubin Direct Bilirubin AST ALT Alkaline Phosphatase Lactate Dehydrogenase C-Reactive Protein Total Protein Albumin Triglycerides Arterial Blood Glucose Arterial Blood Ionized Calcium Urine WBC (Auto) Coronavirus (PCR) SARS-CoV-2 IgG Ab Crossmatch 06/03/20 06/03/20 06/03/20 03:58 05:19 12:21 WBC RBC Hgb Hct MCV MCH MCHC RDW Lymph % (Auto) Lymph # (Auto) Seg Neutrophils % Seg Neuts % (Manual) Lymphocytes % (Manual) Nucleated RBC % Seg Neutrophils # Seg Neutrophils # Man Lymphocytes # (Manual) Monocytes # (Manual) PT INR APTT D-Dimer ABG pH POC ABG pCO2 POC ABG pO2 ABG pO2 171.0 H ABG HCO3 42.8 H ABG O2 Saturation ABG Base Excess 15.6 H ABG Hemoglobin 12.3 L ABG Oxyhemoglobin ABG Sodium ABG Potassium ABG Chloride ABG Glucose Oxyhemoglobin Sodium Potassium Chloride Carbon Dioxide BUN Creatinine Glucose POC Glucose 122 H 207 H Lactic Acid Calcium Magnesium Ferritin Total Bilirubin Direct Bilirubin AST ALT Alkaline Phosphatase Lactate Dehydrogenase C-Reactive Protein Total Protein Albumin Triglycerides Arterial Blood Glucose Arterial Blood Ionized Calcium Urine WBC (Auto) Coronavirus (PCR) SARS-CoV-2 IgG Ab Crossmatch 06/03/20 06/03/20 06/04/20 17:27 23:50 03:55 WBC RBC Hgb Hct MCV MCH MCHC RDW Lymph % (Auto) Lymph # (Auto) Seg Neutrophils % Seg Neuts % (Manual) Lymphocytes % (Manual) Nucleated RBC % Seg Neutrophils # Seg Neutrophils # Man Lymphocytes # (Manual) Monocytes # (Manual) PT INR APTT D-Dimer ABG pH POC ABG pCO2 POC ABG pO2 ABG pO2 117.2 H ABG HCO3 42.4 H ABG O2 Saturation ABG Base Excess 15.3 H ABG Hemoglobin 10.5 L ABG Oxyhemoglobin ABG Sodium ABG Potassium ABG Chloride ABG Glucose Oxyhemoglobin Sodium Potassium Chloride Carbon Dioxide BUN Creatinine Glucose POC Glucose 157 H 214 H Lactic Acid Calcium Magnesium Ferritin Total Bilirubin Direct Bilirubin AST ALT Alkaline Phosphatase Lactate Dehydrogenase C-Reactive Protein Total Protein Albumin Triglycerides Arterial Blood Glucose Arterial Blood Ionized Calcium Urine WBC (Auto) Coronavirus (PCR) SARS-CoV-2 IgG Ab Crossmatch 06/04/20 06/04/20 06/04/20 05:49 11:41 17:30 WBC RBC Hgb Hct MCV MCH MCHC RDW Lymph % (Auto) Lymph # (Auto) Seg Neutrophils % Seg Neuts % (Manual) Lymphocytes % (Manual) Nucleated RBC % Seg Neutrophils # Seg Neutrophils # Man Lymphocytes # (Manual) Monocytes # (Manual) PT INR APTT D-Dimer ABG pH POC ABG pCO2 POC ABG pO2 ABG pO2 ABG HCO3 ABG O2 Saturation ABG Base Excess ABG Hemoglobin ABG Oxyhemoglobin ABG Sodium ABG Potassium ABG Chloride ABG Glucose Oxyhemoglobin Sodium Potassium Chloride Carbon Dioxide BUN Creatinine Glucose POC Glucose 149 H 233 H 156 H Lactic Acid Calcium Magnesium Ferritin Total Bilirubin Direct Bilirubin AST ALT Alkaline Phosphatase Lactate Dehydrogenase C-Reactive Protein Total Protein Albumin Triglycerides Arterial Blood Glucose Arterial Blood Ionized Calcium Urine WBC (Auto) Coronavirus (PCR) SARS-CoV-2 IgG Ab Crossmatch 06/04/20 06/04/20 06/04/20 19:01 20:53 23:41 WBC RBC 3.18 L Hgb 10.8 L Hct 31.8 L MCV 100 H MCH 34 H MCHC RDW Lymph % (Auto) Lymph # (Auto) Seg Neutrophils % Seg Neuts % (Manual) 86.0 H Lymphocytes % (Manual) 10.0 L Nucleated RBC % 1.0 H Seg Neutrophils # Seg Neutrophils # Man 8.5 H Lymphocytes # (Manual) 1.0 L Monocytes # (Manual) PT INR APTT D-Dimer ABG pH POC ABG pCO2 POC ABG pO2 ABG pO2 ABG HCO3 ABG O2 Saturation ABG Base Excess ABG Hemoglobin ABG Oxyhemoglobin ABG Sodium ABG Potassium ABG Chloride ABG Glucose Oxyhemoglobin Sodium Potassium 3.4 L D Chloride 96.5 L Carbon Dioxide 41 H* BUN 27 H Creatinine 0.5 L Glucose 173 H POC Glucose 217 H Lactic Acid Calcium Magnesium Ferritin Total Bilirubin Direct Bilirubin AST ALT Alkaline Phosphatase Lactate Dehydrogenase C-Reactive Protein Total Protein Albumin Triglycerides Arterial Blood Glucose Arterial Blood Ionized Calcium Urine WBC (Auto) Coronavirus (PCR) SARS-CoV-2 IgG Ab Crossmatch 06/05/20 06/05/20 06/05/20 06:05 11:54 12:35 WBC RBC Hgb Hct MCV MCH MCHC RDW Lymph % (Auto) Lymph # (Auto) Seg Neutrophils % Seg Neuts % (Manual) Lymphocytes % (Manual) Nucleated RBC % Seg Neutrophils # Seg Neutrophils # Man Lymphocytes # (Manual) Monocytes # (Manual) PT INR APTT D-Dimer ABG pH POC ABG pCO2 POC ABG pO2 ABG pO2 127.9 H ABG HCO3 41.1 H ABG O2 Saturation ABG Base Excess 13.0 H ABG Hemoglobin 13.4 L ABG Oxyhemoglobin ABG Sodium ABG Potassium ABG Chloride ABG Glucose Oxyhemoglobin Sodium Potassium Chloride Carbon Dioxide BUN Creatinine Glucose POC Glucose 137 H 211 H Lactic Acid Calcium Magnesium Ferritin Total Bilirubin Direct Bilirubin AST ALT Alkaline Phosphatase Lactate Dehydrogenase C-Reactive Protein Total Protein Albumin Triglycerides Arterial Blood Glucose Arterial Blood Ionized Calcium Urine WBC (Auto) Coronavirus (PCR) SARS-CoV-2 IgG Ab Crossmatch 06/05/20 06/05/20 06/06/20 17:03 23:49 04:42 WBC RBC Hgb Hct MCV MCH MCHC RDW Lymph % (Auto) Lymph # (Auto) Seg Neutrophils % Seg Neuts % (Manual) Lymphocytes % (Manual) Nucleated RBC % Seg Neutrophils # Seg Neutrophils # Man Lymphocytes # (Manual) Monocytes # (Manual) PT INR APTT D-Dimer ABG pH POC ABG pCO2 56.1 H POC ABG pO2 52.5 L ABG pO2 ABG HCO3 ABG O2 Saturation ABG Base Excess ABG Hemoglobin 11.7 L ABG Oxyhemoglobin ABG Sodium ABG Potassium 3.3 L ABG Chloride 95.0 L ABG Glucose 156 H Oxyhemoglobin Sodium Potassium Chloride Carbon Dioxide BUN Creatinine Glucose POC Glucose 159 H 194 H Lactic Acid Calcium Magnesium Ferritin Total Bilirubin Direct Bilirubin AST ALT Alkaline Phosphatase Lactate Dehydrogenase C-Reactive Protein Total Protein Albumin Triglycerides Arterial Blood Glucose 156 H Arterial Blood Ionized Calcium Urine WBC (Auto) Coronavirus (PCR) SARS-CoV-2 IgG Ab Crossmatch 06/06/20 06/06/20 06/06/20 05:57 12:06 17:38 WBC RBC Hgb Hct MCV MCH MCHC RDW Lymph % (Auto) Lymph # (Auto) Seg Neutrophils % Seg Neuts % (Manual) Lymphocytes % (Manual) Nucleated RBC % Seg Neutrophils # Seg Neutrophils # Man Lymphocytes # (Manual) Monocytes # (Manual) PT INR APTT D-Dimer ABG pH POC ABG pCO2 POC ABG pO2 ABG pO2 ABG HCO3 ABG O2 Saturation ABG Base Excess ABG Hemoglobin ABG Oxyhemoglobin ABG Sodium ABG Potassium ABG Chloride ABG Glucose Oxyhemoglobin Sodium Potassium Chloride Carbon Dioxide BUN Creatinine Glucose POC Glucose 144 H 230 H 162 H Lactic Acid Calcium Magnesium Ferritin Total Bilirubin Direct Bilirubin AST ALT Alkaline Phosphatase Lactate Dehydrogenase C-Reactive Protein Total Protein Albumin Triglycerides Arterial Blood Glucose Arterial Blood Ionized Calcium Urine WBC (Auto) Coronavirus (PCR) SARS-CoV-2 IgG Ab Crossmatch 06/06/20 06/07/20 06/07/20 23:50 04:34 06:03 WBC RBC Hgb Hct MCV MCH MCHC RDW Lymph % (Auto) Lymph # (Auto) Seg Neutrophils % Seg Neuts % (Manual) Lymphocytes % (Manual) Nucleated RBC % Seg Neutrophils # Seg Neutrophils # Man Lymphocytes # (Manual) Monocytes # (Manual) PT INR APTT D-Dimer ABG pH 7.511 H POC ABG pCO2 53.5 H POC ABG pO2 114.5 H ABG pO2 ABG HCO3 ABG O2 Saturation ABG Base Excess ABG Hemoglobin 9.4 L ABG Oxyhemoglobin ABG Sodium 134.5 L ABG Potassium ABG Chloride 94.0 L ABG Glucose 186 H Oxyhemoglobin Sodium Potassium Chloride Carbon Dioxide BUN Creatinine Glucose POC Glucose 181 H 155 H Lactic Acid Calcium Magnesium Ferritin Total Bilirubin Direct Bilirubin AST ALT Alkaline Phosphatase Lactate Dehydrogenase C-Reactive Protein Total Protein Albumin Triglycerides Arterial Blood Glucose 186 H Arterial Blood Ionized Calcium 4.5 L Urine WBC (Auto) Coronavirus (PCR) SARS-CoV-2 IgG Ab Crossmatch 06/07/20 06/07/20 06/07/20 13:41 14:58 14:58 WBC RBC 2.72 L Hgb 9.3 L Hct 27.2 L MCV 100 H MCH 34 H MCHC RDW Lymph % (Auto) Lymph # (Auto) Seg Neutrophils % Seg Neuts % (Manual) Lymphocytes % (Manual) Nucleated RBC % Seg Neutrophils # Seg Neutrophils # Man Lymphocytes # (Manual) Monocytes # (Manual) PT INR APTT D-Dimer ABG pH POC ABG pCO2 POC ABG pO2 ABG pO2 ABG HCO3 ABG O2 Saturation ABG Base Excess ABG Hemoglobin ABG Oxyhemoglobin ABG Sodium ABG Potassium ABG Chloride ABG Glucose Oxyhemoglobin Sodium Potassium Chloride 93.5 L Carbon Dioxide 39 H BUN 22 H Creatinine 0.4 L Glucose 188 H POC Glucose 201 H Lactic Acid Calcium Magnesium Ferritin Total Bilirubin Direct Bilirubin AST 61 H ALT 273 H Alkaline Phosphatase Lactate Dehydrogenase C-Reactive Protein Total Protein 5.9 L Albumin 2.7 L Triglycerides Arterial Blood Glucose Arterial Blood Ionized Calcium Urine WBC (Auto) Coronavirus (PCR) SARS-CoV-2 IgG Ab Crossmatch 06/07/20 06/08/20 06/08/20 23:18 05:31 12:07 WBC RBC Hgb Hct MCV MCH MCHC RDW Lymph % (Auto) Lymph # (Auto) Seg Neutrophils % Seg Neuts % (Manual) Lymphocytes % (Manual) Nucleated RBC % Seg Neutrophils # Seg Neutrophils # Man Lymphocytes # (Manual) Monocytes # (Manual) PT INR APTT D-Dimer ABG pH POC ABG pCO2 POC ABG pO2 ABG pO2 ABG HCO3 ABG O2 Saturation ABG Base Excess ABG Hemoglobin ABG Oxyhemoglobin ABG Sodium ABG Potassium ABG Chloride ABG Glucose Oxyhemoglobin Sodium Potassium Chloride Carbon Dioxide BUN Creatinine Glucose POC Glucose 214 H 129 H 179 H Lactic Acid Calcium Magnesium Ferritin Total Bilirubin Direct Bilirubin AST ALT Alkaline Phosphatase Lactate Dehydrogenase C-Reactive Protein Total Protein Albumin Triglycerides Arterial Blood Glucose Arterial Blood Ionized Calcium Urine WBC (Auto) Coronavirus (PCR) SARS-CoV-2 IgG Ab Crossmatch 06/08/20 06/08/20 06/09/20 18:18 23:35 05:42 WBC RBC Hgb Hct MCV MCH MCHC RDW Lymph % (Auto) Lymph # (Auto) Seg Neutrophils % Seg Neuts % (Manual) Lymphocytes % (Manual) Nucleated RBC % Seg Neutrophils # Seg Neutrophils # Man Lymphocytes # (Manual) Monocytes # (Manual) PT INR APTT D-Dimer ABG pH POC ABG pCO2 POC ABG pO2 ABG pO2 ABG HCO3 ABG O2 Saturation ABG Base Excess ABG Hemoglobin ABG Oxyhemoglobin ABG Sodium ABG Potassium ABG Chloride ABG Glucose Oxyhemoglobin Sodium Potassium Chloride Carbon Dioxide BUN Creatinine Glucose POC Glucose 172 H 177 H 137 H Lactic Acid Calcium Magnesium Ferritin Total Bilirubin Direct Bilirubin AST ALT Alkaline Phosphatase Lactate Dehydrogenase C-Reactive Protein Total Protein Albumin Triglycerides Arterial Blood Glucose Arterial Blood Ionized Calcium Urine WBC (Auto) Coronavirus (PCR) SARS-CoV-2 IgG Ab Crossmatch 06/09/20 06/09/20 06/09/20 06:20 07:55 07:55 WBC 12.4 H RBC 3.26 L Hgb 11.1 L Hct 33.4 L D MCV 102 H MCH 34 H MCHC RDW Lymph % (Auto) Lymph # (Auto) Seg Neutrophils % Seg Neuts % (Manual) Lymphocytes % (Manual) Nucleated RBC % Seg Neutrophils # Seg Neutrophils # Man Lymphocytes # (Manual) Monocytes # (Manual) PT INR APTT D-Dimer ABG pH 7.466 H POC ABG pCO2 50.7 H POC ABG pO2 53.0 L ABG pO2 ABG HCO3 ABG O2 Saturation ABG Base Excess ABG Hemoglobin ABG Oxyhemoglobin ABG Sodium ABG Potassium 2.9 L ABG Chloride 93.0 L ABG Glucose 138 H Oxyhemoglobin Sodium Potassium 3.0 L Chloride 92.3 L Carbon Dioxide 37 H BUN 21 H Creatinine 0.6 L Glucose 120 H POC Glucose Lactic Acid Calcium Magnesium Ferritin Total Bilirubin Direct Bilirubin AST ALT Alkaline Phosphatase Lactate Dehydrogenase C-Reactive Protein Total Protein Albumin Triglycerides Arterial Blood Glucose 138 H Arterial Blood Ionized Calcium 4.5 L Urine WBC (Auto) Coronavirus (PCR) SARS-CoV-2 IgG Ab Crossmatch 06/09/20 06/09/20 06/10/20 11:22 18:32 04:46 WBC RBC Hgb Hct MCV MCH MCHC RDW Lymph % (Auto) Lymph # (Auto) Seg Neutrophils % Seg Neuts % (Manual) Lymphocytes % (Manual) Nucleated RBC % Seg Neutrophils # Seg Neutrophils # Man Lymphocytes # (Manual) Monocytes # (Manual) PT INR APTT D-Dimer ABG pH 7.501 H POC ABG pCO2 POC ABG pO2 126.5 H ABG pO2 ABG HCO3 ABG O2 Saturation ABG Base Excess ABG Hemoglobin 10.3 L ABG Oxyhemoglobin ABG Sodium ABG Potassium ABG Chloride ABG Glucose 220 H Oxyhemoglobin Sodium Potassium Chloride Carbon Dioxide BUN Creatinine Glucose POC Glucose 117 H 121 H Lactic Acid Calcium Magnesium Ferritin Total Bilirubin Direct Bilirubin AST ALT Alkaline Phosphatase Lactate Dehydrogenase C-Reactive Protein Total Protein Albumin Triglycerides Arterial Blood Glucose 220 H Arterial Blood Ionized Calcium Urine WBC (Auto) Coronavirus (PCR) SARS-CoV-2 IgG Ab Crossmatch 06/10/20 06/10/20 06/10/20 05:30 09:38 12:03 WBC RBC Hgb Hct MCV MCH MCHC RDW Lymph % (Auto) Lymph # (Auto) Seg Neutrophils % Seg Neuts % (Manual) Lymphocytes % (Manual) Nucleated RBC % Seg Neutrophils # Seg Neutrophils # Man Lymphocytes # (Manual) Monocytes # (Manual) PT INR APTT D-Dimer ABG pH POC ABG pCO2 POC ABG pO2 ABG pO2 ABG HCO3 ABG O2 Saturation ABG Base Excess ABG Hemoglobin ABG Oxyhemoglobin ABG Sodium ABG Potassium ABG Chloride ABG Glucose Oxyhemoglobin Sodium Potassium Chloride Carbon Dioxide BUN Creatinine Glucose POC Glucose 181 H 204 H Lactic Acid Calcium Magnesium Ferritin Total Bilirubin Direct Bilirubin AST ALT Alkaline Phosphatase Lactate Dehydrogenase C-Reactive Protein Total Protein Albumin Triglycerides 738 H Arterial Blood Glucose Arterial Blood Ionized Calcium Urine WBC (Auto) Coronavirus (PCR) SARS-CoV-2 IgG Ab Crossmatch 06/10/20 06/11/20 06/11/20 17:17 00:04 04:38 WBC RBC Hgb Hct MCV MCH MCHC RDW Lymph % (Auto) Lymph # (Auto) Seg Neutrophils % Seg Neuts % (Manual) Lymphocytes % (Manual) Nucleated RBC % Seg Neutrophils # Seg Neutrophils # Man Lymphocytes # (Manual) Monocytes # (Manual) PT INR APTT D-Dimer ABG pH 7.479 H POC ABG pCO2 POC ABG pO2 76.7 L ABG pO2 ABG HCO3 ABG O2 Saturation ABG Base Excess ABG Hemoglobin 9.8 L ABG Oxyhemoglobin ABG Sodium 135.8 L ABG Potassium ABG Chloride ABG Glucose 238 H Oxyhemoglobin Sodium Potassium Chloride Carbon Dioxide BUN Creatinine Glucose POC Glucose 156 H 178 H Lactic Acid Calcium Magnesium Ferritin Total Bilirubin Direct Bilirubin AST ALT Alkaline Phosphatase Lactate Dehydrogenase C-Reactive Protein Total Protein Albumin Triglycerides Arterial Blood Glucose 238 H Arterial Blood Ionized Calcium Urine WBC (Auto) Coronavirus (PCR) SARS-CoV-2 IgG Ab Crossmatch 06/11/20 06/11/20 06/11/20 05:21 06:52 11:50 WBC RBC Hgb Hct MCV MCH MCHC RDW Lymph % (Auto) Lymph # (Auto) Seg Neutrophils % Seg Neuts % (Manual) Lymphocytes % (Manual) Nucleated RBC % Seg Neutrophils # Seg Neutrophils # Man Lymphocytes # (Manual) Monocytes # (Manual) PT INR APTT D-Dimer ABG pH POC ABG pCO2 POC ABG pO2 ABG pO2 ABG HCO3 ABG O2 Saturation ABG Base Excess ABG Hemoglobin ABG Oxyhemoglobin ABG Sodium ABG Potassium ABG Chloride ABG Glucose Oxyhemoglobin Sodium Potassium Chloride Carbon Dioxide BUN Creatinine Glucose POC Glucose 215 H 187 H Lactic Acid Calcium Magnesium Ferritin Total Bilirubin Direct Bilirubin AST ALT Alkaline Phosphatase Lactate Dehydrogenase C-Reactive Protein Total Protein Albumin Triglycerides 331 H Arterial Blood Glucose Arterial Blood Ionized Calcium Urine WBC (Auto) Coronavirus (PCR) SARS-CoV-2 IgG Ab Crossmatch 06/11/20 06/11/20 06/12/20 17:49 23:35 04:52 WBC RBC Hgb Hct MCV MCH MCHC RDW Lymph % (Auto) Lymph # (Auto) Seg Neutrophils % Seg Neuts % (Manual) Lymphocytes % (Manual) Nucleated RBC % Seg Neutrophils # Seg Neutrophils # Man Lymphocytes # (Manual) Monocytes # (Manual) PT INR APTT D-Dimer ABG pH 7.486 H POC ABG pCO2 POC ABG pO2 ABG pO2 ABG HCO3 ABG O2 Saturation ABG Base Excess ABG Hemoglobin 9.4 L ABG Oxyhemoglobin ABG Sodium ABG Potassium 3.2 L ABG Chloride ABG Glucose 209 H Oxyhemoglobin Sodium Potassium Chloride Carbon Dioxide BUN Creatinine Glucose POC Glucose 211 H 200 H Lactic Acid Calcium Magnesium Ferritin Total Bilirubin Direct Bilirubin AST ALT Alkaline Phosphatase Lactate Dehydrogenase C-Reactive Protein Total Protein Albumin Triglycerides Arterial Blood Glucose 209 H Arterial Blood Ionized Calcium Urine WBC (Auto) Coronavirus (PCR) SARS-CoV-2 IgG Ab Crossmatch 06/12/20 06/12/20 06/12/20 05:13 11:47 18:33 WBC RBC Hgb Hct MCV MCH MCHC RDW Lymph % (Auto) Lymph # (Auto) Seg Neutrophils % Seg Neuts % (Manual) Lymphocytes % (Manual) Nucleated RBC % Seg Neutrophils # Seg Neutrophils # Man Lymphocytes # (Manual) Monocytes # (Manual) PT INR APTT D-Dimer ABG pH POC ABG pCO2 POC ABG pO2 ABG pO2 ABG HCO3 ABG O2 Saturation ABG Base Excess ABG Hemoglobin ABG Oxyhemoglobin ABG Sodium ABG Potassium ABG Chloride ABG Glucose Oxyhemoglobin Sodium Potassium Chloride Carbon Dioxide BUN Creatinine Glucose POC Glucose 174 H 214 H 194 H Lactic Acid Calcium Magnesium Ferritin Total Bilirubin Direct Bilirubin AST ALT Alkaline Phosphatase Lactate Dehydrogenase C-Reactive Protein Total Protein Albumin Triglycerides Arterial Blood Glucose Arterial Blood Ionized Calcium Urine WBC (Auto) Coronavirus (PCR) SARS-CoV-2 IgG Ab Crossmatch 06/12/20 06/13/20 06/13/20 23:49 05:41 12:30 WBC RBC Hgb Hct MCV MCH MCHC RDW Lymph % (Auto) Lymph # (Auto) Seg Neutrophils % Seg Neuts % (Manual) Lymphocytes % (Manual) Nucleated RBC % Seg Neutrophils # Seg Neutrophils # Man Lymphocytes # (Manual) Monocytes # (Manual) PT INR APTT D-Dimer ABG pH POC ABG pCO2 POC ABG pO2 ABG pO2 ABG HCO3 ABG O2 Saturation ABG Base Excess ABG Hemoglobin ABG Oxyhemoglobin ABG Sodium ABG Potassium ABG Chloride ABG Glucose Oxyhemoglobin Sodium Potassium Chloride Carbon Dioxide BUN Creatinine Glucose POC Glucose 160 H 150 H 181 H Lactic Acid Calcium Magnesium Ferritin Total Bilirubin Direct Bilirubin AST ALT Alkaline Phosphatase Lactate Dehydrogenase C-Reactive Protein Total Protein Albumin Triglycerides Arterial Blood Glucose Arterial Blood Ionized Calcium Urine WBC (Auto) Coronavirus (PCR) SARS-CoV-2 IgG Ab Crossmatch 06/13/20 06/13/20 06/13/20 14:14 17:48 23:27 WBC 12.8 H RBC 2.33 L Hgb 8.0 L Hct 23.3 L MCV 100 H MCH 34 H MCHC RDW 15.7 H Lymph % (Auto) Lymph # (Auto) Seg Neutrophils % Seg Neuts % (Manual) 85.0 H Lymphocytes % (Manual) 10.0 L Nucleated RBC % Seg Neutrophils # Seg Neutrophils # Man 10.9 H Lymphocytes # (Manual) Monocytes # (Manual) PT INR APTT D-Dimer ABG pH POC ABG pCO2 POC ABG pO2 ABG pO2 ABG HCO3 ABG O2 Saturation ABG Base Excess ABG Hemoglobin ABG Oxyhemoglobin ABG Sodium ABG Potassium ABG Chloride ABG Glucose Oxyhemoglobin Sodium Potassium Chloride Carbon Dioxide BUN Creatinine Glucose POC Glucose 173 H 154 H Lactic Acid Calcium Magnesium Ferritin Total Bilirubin Direct Bilirubin AST ALT Alkaline Phosphatase Lactate Dehydrogenase C-Reactive Protein Total Protein Albumin Triglycerides Arterial Blood Glucose Arterial Blood Ionized Calcium Urine WBC (Auto) Coronavirus (PCR) SARS-CoV-2 IgG Ab Crossmatch 06/14/20 06/14/20 06/14/20 03:58 05:21 07:15 WBC 26.2 H RBC 2.97 L Hgb 9.7 L Hct 29.9 L D MCV 101 H MCH 33 H MCHC RDW 15.3 H Lymph % (Auto) Lymph # (Auto) Seg Neutrophils % Seg Neuts % (Manual) 79.0 H Lymphocytes % (Manual) 5.0 L Nucleated RBC % 3.0 H Seg Neutrophils # Seg Neutrophils # Man 20.7 H Lymphocytes # (Manual) Monocytes # (Manual) 1.3 H PT INR APTT D-Dimer ABG pH POC ABG pCO2 51.5 H POC ABG pO2 70.0 L ABG pO2 ABG HCO3 ABG O2 Saturation ABG Base Excess ABG Hemoglobin 10.1 L ABG Oxyhemoglobin ABG Sodium 131.5 L ABG Potassium 3.1 L ABG Chloride 93.0 L ABG Glucose 188 H Oxyhemoglobin Sodium Potassium Chloride Carbon Dioxide BUN Creatinine Glucose POC Glucose 147 H Lactic Acid Calcium Magnesium Ferritin Total Bilirubin Direct Bilirubin AST ALT Alkaline Phosphatase Lactate Dehydrogenase C-Reactive Protein Total Protein Albumin Triglycerides Arterial Blood Glucose 188 H Arterial Blood Ionized Calcium Urine WBC (Auto) Coronavirus (PCR) SARS-CoV-2 IgG Ab Crossmatch 06/14/20 06/14/20 06/14/20 07:15 11:30 11:50 WBC RBC Hgb Hct MCV MCH MCHC RDW Lymph % (Auto) Lymph # (Auto) Seg Neutrophils % Seg Neuts % (Manual) Lymphocytes % (Manual) Nucleated RBC % Seg Neutrophils # Seg Neutrophils # Man Lymphocytes # (Manual) Monocytes # (Manual) PT INR APTT D-Dimer ABG pH POC ABG pCO2 POC ABG pO2 ABG pO2 ABG HCO3 ABG O2 Saturation ABG Base Excess ABG Hemoglobin ABG Oxyhemoglobin ABG Sodium ABG Potassium ABG Chloride ABG Glucose Oxyhemoglobin Sodium 135 L Potassium 3.5 L Chloride 90.4 L Carbon Dioxide 38 H BUN Creatinine 0.5 L Glucose 190 H POC Glucose 176 H Lactic Acid Calcium Magnesium Ferritin 1496.0 H Total Bilirubin Direct Bilirubin AST ALT 81 H Alkaline Phosphatase Lactate Dehydrogenase C-Reactive Protein Total Protein Albumin 2.9 L Triglycerides Arterial Blood Glucose Arterial Blood Ionized Calcium Urine WBC (Auto) Coronavirus (PCR) SARS-CoV-2 IgG Ab Crossmatch 06/14/20 06/15/20 06/15/20 23:31 04:00 05:00 WBC RBC Hgb Hct MCV MCH MCHC RDW Lymph % (Auto) Lymph # (Auto) Seg Neutrophils % Seg Neuts % (Manual) Lymphocytes % (Manual) Nucleated RBC % Seg Neutrophils # Seg Neutrophils # Man Lymphocytes # (Manual) Monocytes # (Manual) PT INR APTT D-Dimer ABG pH POC ABG pCO2 POC ABG pO2 ABG pO2 ABG HCO3 ABG O2 Saturation ABG Base Excess ABG Hemoglobin ABG Oxyhemoglobin ABG Sodium ABG Potassium ABG Chloride ABG Glucose Oxyhemoglobin Sodium 133 L Potassium Chloride 91.1 L Carbon Dioxide 34 H BUN Creatinine 0.4 L Glucose 159 H POC Glucose 200 H Lactic Acid Calcium Magnesium Ferritin Total Bilirubin 2.00 H Direct Bilirubin AST 47 H ALT 77 H Alkaline Phosphatase Lactate Dehydrogenase C-Reactive Protein Total Protein Albumin 2.6 L Triglycerides 152 H Arterial Blood Glucose Arterial Blood Ionized Calcium Urine WBC (Auto) Coronavirus (PCR) SARS-CoV-2 IgG Ab Crossmatch 06/15/20 06/15/20 06/15/20 05:35 06:27 11:38 WBC RBC Hgb Hct MCV MCH MCHC RDW Lymph % (Auto) Lymph # (Auto) Seg Neutrophils % Seg Neuts % (Manual) Lymphocytes % (Manual) Nucleated RBC % Seg Neutrophils # Seg Neutrophils # Man Lymphocytes # (Manual) Monocytes # (Manual) PT INR APTT D-Dimer ABG pH POC ABG pCO2 61.0 H POC ABG pO2 67.9 L ABG pO2 ABG HCO3 ABG O2 Saturation ABG Base Excess ABG Hemoglobin 10.4 L ABG Oxyhemoglobin ABG Sodium 132.7 L ABG Potassium 3.3 L ABG Chloride 92.0 L ABG Glucose 158 H Oxyhemoglobin Sodium Potassium Chloride Carbon Dioxide BUN Creatinine Glucose POC Glucose 148 H 197 H Lactic Acid Calcium Magnesium Ferritin Total Bilirubin Direct Bilirubin AST ALT Alkaline Phosphatase Lactate Dehydrogenase C-Reactive Protein Total Protein Albumin Triglycerides Arterial Blood Glucose 158 H Arterial Blood Ionized Calcium Urine WBC (Auto) Coronavirus (PCR) SARS-CoV-2 IgG Ab Crossmatch 06/15/20 06/15/20 06/16/20 17:29 Unknown 00:01 WBC 20.7 H RBC 2.57 L Hgb 8.9 L Hct 25.8 L MCV 101 H MCH 35 H MCHC 35 H RDW 16.0 H Lymph % (Auto) Lymph # (Auto) Seg Neutrophils % Seg Neuts % (Manual) 83.0 H Lymphocytes % (Manual) 8.0 L Nucleated RBC % Seg Neutrophils # Seg Neutrophils # Man 17.2 H Lymphocytes # (Manual) Monocytes # (Manual) 1.2 H PT INR APTT D-Dimer ABG pH POC ABG pCO2 POC ABG pO2 ABG pO2 ABG HCO3 ABG O2 Saturation ABG Base Excess ABG Hemoglobin ABG Oxyhemoglobin ABG Sodium ABG Potassium ABG Chloride ABG Glucose Oxyhemoglobin Sodium Potassium Chloride Carbon Dioxide BUN Creatinine Glucose POC Glucose 231 H 257 H Lactic Acid Calcium Magnesium Ferritin Total Bilirubin Direct Bilirubin AST ALT Alkaline Phosphatase Lactate Dehydrogenase C-Reactive Protein Total Protein Albumin Triglycerides Arterial Blood Glucose Arterial Blood Ionized Calcium Urine WBC (Auto) Coronavirus (PCR) SARS-CoV-2 IgG Ab Crossmatch 06/16/20 06/16/20 06/16/20 04:00 04:00 05:22 WBC 13.8 H RBC 2.03 L Hgb 7.6 L Hct 20.7 L MCV 102 H MCH 37 H MCHC 37 H RDW 16.2 H Lymph % (Auto) 4.4 L Lymph # (Auto) 0.6 L Seg Neutrophils % Seg Neuts % (Manual) Lymphocytes % (Manual) Nucleated RBC % Seg Neutrophils # 12.7 H Seg Neutrophils # Man Lymphocytes # (Manual) Monocytes # (Manual) PT INR APTT D-Dimer ABG pH POC ABG pCO2 POC ABG pO2 ABG pO2 ABG HCO3 ABG O2 Saturation ABG Base Excess ABG Hemoglobin ABG Oxyhemoglobin ABG Sodium ABG Potassium ABG Chloride ABG Glucose Oxyhemoglobin Sodium 130 L Potassium Chloride 88.9 L Carbon Dioxide 36 H BUN Creatinine 0.3 L Glucose 276 H POC Glucose 250 H Lactic Acid Calcium Magnesium Ferritin Total Bilirubin Direct Bilirubin AST ALT Alkaline Phosphatase Lactate Dehydrogenase C-Reactive Protein Total Protein Albumin Triglycerides Arterial Blood Glucose Arterial Blood Ionized Calcium Urine WBC (Auto) Coronavirus (PCR) SARS-CoV-2 IgG Ab Crossmatch 06/16/20 06/16/20 06/17/20 12:44 18:18 00:39 WBC RBC Hgb Hct MCV MCH MCHC RDW Lymph % (Auto) Lymph # (Auto) Seg Neutrophils % Seg Neuts % (Manual) Lymphocytes % (Manual) Nucleated RBC % Seg Neutrophils # Seg Neutrophils # Man Lymphocytes # (Manual) Monocytes # (Manual) PT INR APTT D-Dimer ABG pH POC ABG pCO2 POC ABG pO2 ABG pO2 ABG HCO3 ABG O2 Saturation ABG Base Excess ABG Hemoglobin ABG Oxyhemoglobin ABG Sodium ABG Potassium ABG Chloride ABG Glucose Oxyhemoglobin Sodium Potassium Chloride Carbon Dioxide BUN Creatinine Glucose POC Glucose 279 H 239 H 247 H Lactic Acid Calcium Magnesium Ferritin Total Bilirubin Direct Bilirubin AST ALT Alkaline Phosphatase Lactate Dehydrogenase C-Reactive Protein Total Protein Albumin Triglycerides Arterial Blood Glucose Arterial Blood Ionized Calcium Urine WBC (Auto) Coronavirus (PCR) SARS-CoV-2 IgG Ab Crossmatch 06/17/20 06/17/20 06/17/20 03:40 04:08 10:54 WBC RBC Hgb Hct MCV MCH MCHC RDW Lymph % (Auto) Lymph # (Auto) Seg Neutrophils % Seg Neuts % (Manual) Lymphocytes % (Manual) Nucleated RBC % Seg Neutrophils # Seg Neutrophils # Man Lymphocytes # (Manual) Monocytes # (Manual) PT INR APTT D-Dimer ABG pH POC ABG pCO2 65.7 H POC ABG pO2 ABG pO2 ABG HCO3 ABG O2 Saturation ABG Base Excess ABG Hemoglobin 11.9 L ABG Oxyhemoglobin ABG Sodium ABG Potassium ABG Chloride 93.0 L ABG Glucose 244 H Oxyhemoglobin Sodium Potassium Chloride Carbon Dioxide BUN Creatinine Glucose POC Glucose 221 H 248 H Lactic Acid Calcium Magnesium Ferritin Total Bilirubin Direct Bilirubin AST ALT Alkaline Phosphatase Lactate Dehydrogenase C-Reactive Protein Total Protein Albumin Triglycerides Arterial Blood Glucose 244 H Arterial Blood Ionized Calcium Urine WBC (Auto) Coronavirus (PCR) SARS-CoV-2 IgG Ab Crossmatch 06/17/20 06/17/20 06/17/20 17:47 23:11 23:29 WBC RBC Hgb Hct MCV MCH MCHC RDW Lymph % (Auto) Lymph # (Auto) Seg Neutrophils % Seg Neuts % (Manual) Lymphocytes % (Manual) Nucleated RBC % Seg Neutrophils # Seg Neutrophils # Man Lymphocytes # (Manual) Monocytes # (Manual) PT INR APTT D-Dimer ABG pH POC ABG pCO2 85.2 H POC ABG pO2 48.4 L ABG pO2 ABG HCO3 ABG O2 Saturation ABG Base Excess ABG Hemoglobin 8.0 L ABG Oxyhemoglobin ABG Sodium ABG Potassium ABG Chloride 95.0 L ABG Glucose 292 H Oxyhemoglobin Sodium Potassium Chloride Carbon Dioxide BUN Creatinine Glucose POC Glucose 245 H 252 H Lactic Acid Calcium Magnesium Ferritin Total Bilirubin Direct Bilirubin AST ALT Alkaline Phosphatase Lactate Dehydrogenase C-Reactive Protein Total Protein Albumin Triglycerides Arterial Blood Glucose 292 H Arterial Blood Ionized Calcium Urine WBC (Auto) Coronavirus (PCR) SARS-CoV-2 IgG Ab Crossmatch 06/18/20 06/18/20 06/18/20 03:14 05:34 11:47 WBC RBC Hgb Hct MCV MCH MCHC RDW Lymph % (Auto) Lymph # (Auto) Seg Neutrophils % Seg Neuts % (Manual) Lymphocytes % (Manual) Nucleated RBC % Seg Neutrophils # Seg Neutrophils # Man Lymphocytes # (Manual) Monocytes # (Manual) PT INR APTT D-Dimer ABG pH POC ABG pCO2 65.4 H POC ABG pO2 160.7 H ABG pO2 ABG HCO3 ABG O2 Saturation ABG Base Excess ABG Hemoglobin 7.8 L ABG Oxyhemoglobin ABG Sodium ABG Potassium ABG Chloride 95.0 L ABG Glucose 251 H Oxyhemoglobin Sodium Potassium Chloride Carbon Dioxide BUN Creatinine Glucose POC Glucose 243 H 263 H Lactic Acid Calcium Magnesium Ferritin Total Bilirubin Direct Bilirubin AST ALT Alkaline Phosphatase Lactate Dehydrogenase C-Reactive Protein Total Protein Albumin Triglycerides Arterial Blood Glucose 251 H Arterial Blood Ionized Calcium Urine WBC (Auto) Coronavirus (PCR) SARS-CoV-2 IgG Ab Crossmatch 06/18/20 06/18/20 06/19/20 17:31 23:33 04:32 WBC RBC Hgb Hct MCV MCH MCHC RDW Lymph % (Auto) Lymph # (Auto) Seg Neutrophils % Seg Neuts % (Manual) Lymphocytes % (Manual) Nucleated RBC % Seg Neutrophils # Seg Neutrophils # Man Lymphocytes # (Manual) Monocytes # (Manual) PT INR APTT D-Dimer ABG pH POC ABG pCO2 83.1 H POC ABG pO2 65.8 L ABG pO2 ABG HCO3 ABG O2 Saturation ABG Base Excess ABG Hemoglobin 8.9 L ABG Oxyhemoglobin ABG Sodium ABG Potassium ABG Chloride 96.0 L ABG Glucose 297 H Oxyhemoglobin Sodium Potassium Chloride Carbon Dioxide BUN Creatinine Glucose POC Glucose 286 H 238 H Lactic Acid Calcium Magnesium Ferritin Total Bilirubin Direct Bilirubin AST ALT Alkaline Phosphatase Lactate Dehydrogenase C-Reactive Protein Total Protein Albumin Triglycerides Arterial Blood Glucose 297 H Arterial Blood Ionized Calcium Urine WBC (Auto) Coronavirus (PCR) SARS-CoV-2 IgG Ab Crossmatch 06/19/20 06/19/20 06/19/20 05:55 11:20 17:12 WBC RBC Hgb Hct MCV MCH MCHC RDW Lymph % (Auto) Lymph # (Auto) Seg Neutrophils % Seg Neuts % (Manual) Lymphocytes % (Manual) Nucleated RBC % Seg Neutrophils # Seg Neutrophils # Man Lymphocytes # (Manual) Monocytes # (Manual) PT INR APTT D-Dimer ABG pH POC ABG pCO2 POC ABG pO2 ABG pO2 ABG HCO3 ABG O2 Saturation ABG Base Excess ABG Hemoglobin ABG Oxyhemoglobin ABG Sodium ABG Potassium ABG Chloride ABG Glucose Oxyhemoglobin Sodium Potassium Chloride Carbon Dioxide BUN Creatinine Glucose POC Glucose 274 H 282 H 298 H Lactic Acid Calcium Magnesium Ferritin Total Bilirubin Direct Bilirubin AST ALT Alkaline Phosphatase Lactate Dehydrogenase C-Reactive Protein Total Protein Albumin Triglycerides Arterial Blood Glucose Arterial Blood Ionized Calcium Urine WBC (Auto) Coronavirus (PCR) SARS-CoV-2 IgG Ab Crossmatch 06/19/20 06/20/20 06/20/20 23:08 03:33 06:01 WBC RBC Hgb Hct MCV MCH MCHC RDW Lymph % (Auto) Lymph # (Auto) Seg Neutrophils % Seg Neuts % (Manual) Lymphocytes % (Manual) Nucleated RBC % Seg Neutrophils # Seg Neutrophils # Man Lymphocytes # (Manual) Monocytes # (Manual) PT INR APTT D-Dimer ABG pH POC ABG pCO2 POC ABG pO2 ABG pO2 69.9 L ABG HCO3 50.8 H ABG O2 Saturation ABG Base Excess 24.2 H ABG Hemoglobin 5.8 L ABG Oxyhemoglobin ABG Sodium ABG Potassium ABG Chloride ABG Glucose Oxyhemoglobin Sodium Potassium Chloride Carbon Dioxide BUN Creatinine Glucose POC Glucose 293 H 182 H Lactic Acid Calcium Magnesium Ferritin Total Bilirubin Direct Bilirubin AST ALT Alkaline Phosphatase Lactate Dehydrogenase C-Reactive Protein Total Protein Albumin Triglycerides Arterial Blood Glucose Arterial Blood Ionized Calcium Urine WBC (Auto) Coronavirus (PCR) SARS-CoV-2 IgG Ab Crossmatch 06/20/20 06/20/20 06/20/20 11:47 17:46 23:37 WBC RBC Hgb Hct MCV MCH MCHC RDW Lymph % (Auto) Lymph # (Auto) Seg Neutrophils % Seg Neuts % (Manual) Lymphocytes % (Manual) Nucleated RBC % Seg Neutrophils # Seg Neutrophils # Man Lymphocytes # (Manual) Monocytes # (Manual) PT INR APTT D-Dimer ABG pH POC ABG pCO2 POC ABG pO2 ABG pO2 ABG HCO3 ABG O2 Saturation ABG Base Excess ABG Hemoglobin ABG Oxyhemoglobin ABG Sodium ABG Potassium ABG Chloride ABG Glucose Oxyhemoglobin Sodium Potassium Chloride Carbon Dioxide BUN Creatinine Glucose POC Glucose 170 H 215 H 256 H Lactic Acid Calcium Magnesium Ferritin Total Bilirubin Direct Bilirubin AST ALT Alkaline Phosphatase Lactate Dehydrogenase C-Reactive Protein Total Protein Albumin Triglycerides Arterial Blood Glucose Arterial Blood Ionized Calcium Urine WBC (Auto) Coronavirus (PCR) SARS-CoV-2 IgG Ab Crossmatch 06/21/20 06/21/20 06/21/20 04:00 05:14 05:51 WBC RBC Hgb Hct MCV MCH MCHC RDW Lymph % (Auto) Lymph # (Auto) Seg Neutrophils % Seg Neuts % (Manual) Lymphocytes % (Manual) Nucleated RBC % Seg Neutrophils # Seg Neutrophils # Man Lymphocytes # (Manual) Monocytes # (Manual) PT INR APTT D-Dimer ABG pH 7.474 H POC ABG pCO2 POC ABG pO2 ABG pO2 ABG HCO3 52.1 H ABG O2 Saturation ABG Base Excess 23.3 H ABG Hemoglobin 5.3 L ABG Oxyhemoglobin ABG Sodium ABG Potassium ABG Chloride ABG Glucose Oxyhemoglobin 93.8 L Sodium Potassium Chloride Carbon Dioxide BUN Creatinine Glucose POC Glucose 122 H 129 H Lactic Acid Calcium Magnesium Ferritin Total Bilirubin Direct Bilirubin AST ALT Alkaline Phosphatase Lactate Dehydrogenase C-Reactive Protein Total Protein Albumin Triglycerides Arterial Blood Glucose Arterial Blood Ionized Calcium Urine WBC (Auto) Coronavirus (PCR) SARS-CoV-2 IgG Ab Crossmatch 06/21/20 06/21/20 06/21/20 11:00 11:00 11:42 WBC 14.2 H RBC 1.85 L Hgb 6.2 L Hct 19.5 L* MCV 105 H MCH 34 H MCHC RDW 18.0 H Lymph % (Auto) Lymph # (Auto) Seg Neutrophils % Seg Neuts % (Manual) Lymphocytes % (Manual) Nucleated RBC % Seg Neutrophils # Seg Neutrophils # Man Lymphocytes # (Manual) Monocytes # (Manual) PT INR APTT D-Dimer ABG pH POC ABG pCO2 POC ABG pO2 ABG pO2 ABG HCO3 ABG O2 Saturation ABG Base Excess ABG Hemoglobin ABG Oxyhemoglobin ABG Sodium ABG Potassium ABG Chloride ABG Glucose Oxyhemoglobin Sodium 147 H Potassium Chloride Carbon Dioxide 51 H* BUN 31 H Creatinine 0.5 L Glucose 224 H POC Glucose 217 H Lactic Acid Calcium Magnesium Ferritin Total Bilirubin Direct Bilirubin AST ALT Alkaline Phosphatase Lactate Dehydrogenase C-Reactive Protein Total Protein Albumin Triglycerides Arterial Blood Glucose Arterial Blood Ionized Calcium Urine WBC (Auto) Coronavirus (PCR) SARS-CoV-2 IgG Ab Crossmatch 06/21/20 06/21/20 06/21/20 14:18 14:30 18:36 WBC RBC Hgb Hct MCV MCH MCHC RDW Lymph % (Auto) Lymph # (Auto) Seg Neutrophils % Seg Neuts % (Manual) Lymphocytes % (Manual) Nucleated RBC % Seg Neutrophils # Seg Neutrophils # Man Lymphocytes # (Manual) Monocytes # (Manual) PT 15.1 H INR 1.19 H APTT D-Dimer ABG pH POC ABG pCO2 POC ABG pO2 ABG pO2 ABG HCO3 ABG O2 Saturation ABG Base Excess ABG Hemoglobin ABG Oxyhemoglobin ABG Sodium ABG Potassium ABG Chloride ABG Glucose Oxyhemoglobin Sodium Potassium Chloride Carbon Dioxide BUN Creatinine Glucose POC Glucose 185 H Lactic Acid Calcium Magnesium Ferritin Total Bilirubin Direct Bilirubin AST ALT Alkaline Phosphatase Lactate Dehydrogenase C-Reactive Protein Total Protein Albumin Triglycerides Arterial Blood Glucose Arterial Blood Ionized Calcium Urine WBC (Auto) Coronavirus (PCR) SARS-CoV-2 IgG Ab Crossmatch See Detail 06/21/20 06/22/20 06/22/20 21:14 03:50 04:00 WBC RBC Hgb Hct MCV MCH MCHC RDW Lymph % (Auto) Lymph # (Auto) Seg Neutrophils % Seg Neuts % (Manual) Lymphocytes % (Manual) Nucleated RBC % Seg Neutrophils # Seg Neutrophils # Man Lymphocytes # (Manual) Monocytes # (Manual) PT INR APTT D-Dimer ABG pH 7.451 H POC ABG pCO2 POC ABG pO2 ABG pO2 ABG HCO3 47.5 H ABG O2 Saturation ABG Base Excess 22.0 H ABG Hemoglobin < 5.1 L ABG Oxyhemoglobin ABG Sodium ABG Potassium ABG Chloride ABG Glucose Oxyhemoglobin 94.1 L Sodium 149 H Potassium 3.5 L Chloride Carbon Dioxide 42 H* D BUN 34 H Creatinine 0.4 L Glucose 219 H POC Glucose 250 H Lactic Acid Calcium Magnesium Ferritin Total Bilirubin Direct Bilirubin AST ALT Alkaline Phosphatase Lactate Dehydrogenase C-Reactive Protein Total Protein Albumin Triglycerides Arterial Blood Glucose Arterial Blood Ionized Calcium Urine WBC (Auto) Coronavirus (PCR) SARS-CoV-2 IgG Ab Crossmatch 06/22/20 06/22/20 06/22/20 12:16 14:29 17:56 WBC RBC Hgb Hct MCV MCH MCHC RDW Lymph % (Auto) Lymph # (Auto) Seg Neutrophils % Seg Neuts % (Manual) Lymphocytes % (Manual) Nucleated RBC % Seg Neutrophils # Seg Neutrophils # Man Lymphocytes # (Manual) Monocytes # (Manual) PT 11.8 L INR APTT 23.5 L D-Dimer ABG pH POC ABG pCO2 POC ABG pO2 ABG pO2 ABG HCO3 ABG O2 Saturation ABG Base Excess ABG Hemoglobin ABG Oxyhemoglobin ABG Sodium ABG Potassium ABG Chloride ABG Glucose Oxyhemoglobin Sodium Potassium Chloride Carbon Dioxide BUN Creatinine Glucose POC Glucose 215 H 215 H Lactic Acid Calcium Magnesium Ferritin Total Bilirubin Direct Bilirubin AST ALT Alkaline Phosphatase Lactate Dehydrogenase C-Reactive Protein Total Protein Albumin Triglycerides Arterial Blood Glucose Arterial Blood Ionized Calcium Urine WBC (Auto) Coronavirus (PCR) SARS-CoV-2 IgG Ab Crossmatch 06/22/20 06/22/20 06/22/20 23:36 23:45 Unknown WBC 14.1 H RBC 2.70 L Hgb 8.9 L 8.9 L Hct 26.9 L 27.2 L D MCV 101 H MCH 33 H MCHC RDW 17.7 H Lymph % (Auto) Lymph # (Auto) Seg Neutrophils % Seg Neuts % (Manual) 92.0 H Lymphocytes % (Manual) 5.0 L Nucleated RBC % Seg Neutrophils # Seg Neutrophils # Man 13.0 H Lymphocytes # (Manual) 0.7 L Monocytes # (Manual) PT INR APTT D-Dimer ABG pH POC ABG pCO2 POC ABG pO2 ABG pO2 ABG HCO3 ABG O2 Saturation ABG Base Excess ABG Hemoglobin ABG Oxyhemoglobin ABG Sodium ABG Potassium ABG Chloride ABG Glucose Oxyhemoglobin Sodium Potassium Chloride Carbon Dioxide BUN Creatinine Glucose POC Glucose 208 H Lactic Acid Calcium Magnesium Ferritin Total Bilirubin Direct Bilirubin AST ALT Alkaline Phosphatase Lactate Dehydrogenase C-Reactive Protein Total Protein Albumin Triglycerides Arterial Blood Glucose Arterial Blood Ionized Calcium Urine WBC (Auto) Coronavirus (PCR) SARS-CoV-2 IgG Ab Crossmatch 06/23/20 06/23/20 06/23/20 05:17 05:19 06:50 WBC RBC Hgb Hct MCV MCH MCHC RDW Lymph % (Auto) Lymph # (Auto) Seg Neutrophils % Seg Neuts % (Manual) Lymphocytes % (Manual) Nucleated RBC % Seg Neutrophils # Seg Neutrophils # Man Lymphocytes # (Manual) Monocytes # (Manual) PT INR APTT D-Dimer ABG pH POC ABG pCO2 69.7 H POC ABG pO2 63.3 L ABG pO2 ABG HCO3 ABG O2 Saturation ABG Base Excess ABG Hemoglobin 10.1 L ABG Oxyhemoglobin ABG Sodium ABG Potassium 3.3 L ABG Chloride ABG Glucose 226 H Oxyhemoglobin Sodium Potassium 3.0 L Chloride Carbon Dioxide 41 H* BUN 26 H Creatinine 0.4 L Glucose 209 H POC Glucose 200 H Lactic Acid Calcium Magnesium Ferritin Total Bilirubin Direct Bilirubin AST ALT Alkaline Phosphatase Lactate Dehydrogenase C-Reactive Protein Total Protein Albumin 2.9 L Triglycerides Arterial Blood Glucose 226 H Arterial Blood Ionized Calcium Urine WBC (Auto) Coronavirus (PCR) SARS-CoV-2 IgG Ab Crossmatch 06/23/20 06/23/20 09:41 12:04 WBC RBC Hgb 9.1 L Hct 28.0 L MCV MCH MCHC RDW Lymph % (Auto) Lymph # (Auto) Seg Neutrophils % Seg Neuts % (Manual) Lymphocytes % (Manual) Nucleated RBC % Seg Neutrophils # Seg Neutrophils # Man Lymphocytes # (Manual) Monocytes # (Manual) PT INR APTT D-Dimer ABG pH POC ABG pCO2 POC ABG pO2 ABG pO2 ABG HCO3 ABG O2 Saturation ABG Base Excess ABG Hemoglobin ABG Oxyhemoglobin ABG Sodium ABG Potassium ABG Chloride ABG Glucose Oxyhemoglobin Sodium Potassium Chloride Carbon Dioxide BUN Creatinine Glucose POC Glucose 146 H Lactic Acid Calcium Magnesium Ferritin Total Bilirubin Direct Bilirubin AST ALT Alkaline Phosphatase Lactate Dehydrogenase C-Reactive Protein Total Protein Albumin Triglycerides Arterial Blood Glucose Arterial Blood Ionized Calcium Urine WBC (Auto) Coronavirus (PCR) SARS-CoV-2 IgG Ab Crossmatch Chest x-ray: pending Allied health notes reviewed: nursing
--- NOTE | 2020-06-23 15:31 | Progress Note ---
Assessment and Plan Assessment and plan: - Acute hypoxemic respiratory failure; Patient intubated and on vent support --Severe COVID-19 bilateral pneumonia Coronavirus protocol: IV steroid therapy, completed remdesivir, isolation precautions, contact precautions, prone positioning while in bed, pulmonary toilet. ID following SARS CoV-2 IgG positive patient is NOT a candidate for COVID convalescent plasma --Severe sepsis/septic shock, due to COVID 19 PNA cont pressors as needed -- Acute kidney injury (SEN) , likely vasomotor nephropathy Resolved, IV fluids, avoid nephrotoxins --Acute on chronic anemia Guaiac test positive GI evaluation PPIs Continue to monitor -- Elevated liver function tests Suspected secondary to alcoholic liver disease. Supportive care, alcohol cessation, patient counseled. --Colonic distention GI evaluation -recommend stool softeners Serial abdominal x-rays Monitor electrolytes and replete -- DVT prophylaxis On therapeutic Lovenox 06/16/2020. Patient currently on mechanical ventilation with AC mode rate 30, tidal volume 500, FiO2 70% and PEEP of 16. Continue anticoagulation with Lovenox 110 milligrams subcu every 12 hours. Wean sedation of fentanyl/Versed as needed. Currently with IV steroids of Solu-Medrol 40 mg IV every 12 hours. Patient will likely need tracheostomy per pulmonary recommendations. Continue pressors to maintain MAP > 65. 06/17/2020. Patient currently on mechanical ventilation with AC mode rate 30, tidal volume 500, FiO2 65% and PEEP of 16. Continue anticoagulation with Lovenox 110 milligrams subcu every 12 hours. Wean sedation of fentanyl/Versed as needed. Currently with IV steroids of Solu-Medrol 40 mg IV every 12 hours. Patient will likely need tracheostomy per pulmonary recommendations. 06/18/2020. Patient currently on mechanical ventilation with AC mode rate 30, tidal volume 500, FiO2 70% and PEEP of 16. Continue Lovenox for anticoagulation and fentanyl/Versed for sedation. Wean steroids per pulmonary. CIWA protocol initiated for history of EtOH dependence 06/19/2020. Patient currently on mechanical ventilation with AC mode rate 30, tidal volume 500, FiO2 60% and PEEP of 16. Wean FiO2 as tolerated per protocol. Continue Lovenox for anticoagulation and fentanyl/Versed for sedation. Wean steroids per pulmonary. CIWA protocol initiated for history of EtOH dependence 06/20/2020. Patient currently on mechanical ventilation with AC mode rate 30, tidal volume 500, FiO2 60% and PEEP of 16. Wean FiO2 as tolerated, SBT per protocol. Continue Lovenox for anticoagulation and fentanyl/Versed for sedation. Wean steroids per pulmonary. Continue pressors to maintain MAP > 65 mmHg. Patient remains on ETT. Consider tracheostomy placement once oxygenation is better per pulmonary. CIWA protocol initiated for history of EtOH dependence. 06/21/2020. Patient with a small apical pneumothorax discovered yesterday. General surgery consulted and consider placing chest tube. Follow-up serial chest x-ray patient currently on mechanical ventilation with AC mode rate 30, tidal volume 500, FiO2 60% and PEEP of 16. Wean FiO2 as tolerated, SBT per protocol. Continue Lovenox for anticoagulation and fentanyl/Versed for sedation. Wean steroids per pulmonary. Continue pressors to maintain MAP > 65 mmHg. Patient remains on ETT. Consider tracheostomy placement once oxygenation is better per pulmonary. CIWA protocol initiated for history of EtOH dependence. 06/22. Status post right chest tube placement yesterday. Remains mechanically ventilated on pressors. Examination today shows slightly distended abdomen. KUB ordered. Awaiting stool guaiac. Plan to get a GI evaluation. 06/23. Has colonic distention on the x-ray. Discussed with GI-advised stool softeners for now and close monitoring. No indication for colonic decompression at this time. Guaiac test is positive. No emergent indication for endoscopy at this point as per GI. Continue to monitor hemoglobin. The high probability of a clinically significant, sudden or life threatening deterioration of the [respiratory] system(s) required my full and direct attention, intervention and personal management. The aggregate critical care time was [31] minutes. This time is in addition to time spent performing reported procedures but includes the following: [x] Data Review and interpretation [x] Patient assessment and monitoring of vital signs [x] Documentation [x] Medication orders and management History Interval history: Guaiac test positive Abdominal x-ray shows colonic distention-GI consulted. Hospitalist Physical - Physical exam Narrative exam: VITAL SIGNS: Reviewed. GENERAL: Sedated and intubated HEAD: No signs of head trauma. MOUTH: Oropharynx is normal. NECK: No adenopathy, no JVD. CHEST: Chest with diminished breath sounds bilaterally. No wheezes, rales, or rhonchi. CARDIAC: normal S1 and S2, without murmurs, gallops, or rubs. ABDOMEN: Slightly distended, bowel sounds positive MUSCULOSKELETAL: No edema NEUROLOGIC EXAM: Sedated and intubated - Constitutional Vitals: Temp Pulse Resp BP Pulse Ox 98.9 F 93 H 30 H 93/58 97 06/23/20 12:00 06/23/20 13:30 06/23/20 13:30 06/23/20 13:30 06/23/20 13:15 Results - Labs CBC & Chem 7: 06/24/20 02:39 06/24/20 02:39 Labs: Laboratory Last Values WBC 14.1 K/mm3 (4.5-11.0) H 06/22/20 Unknown RBC 2.70 M/mm3 (3.65-5.03) L 06/22/20 Unknown Hgb 9.1 gm/dl (11.8-15.2) L 06/23/20 09:41 Hct 28.0 % (35.5-45.6) L 06/23/20 09:41 MCV 101 fl (84-94) H 06/22/20 Unknown MCH 33 pg (28-32) H 06/22/20 Unknown MCHC 33 % (32-34) 06/22/20 Unknown RDW 17.7 % (13.2-15.2) H 06/22/20 Unknown Plt Count 255 K/mm3 (140-440) 06/22/20 Unknown Lymph % (Auto) 4.4 % (13.4-35.0) L 06/16/20 04:00 [place] % (Auto) 3.6 % (0.0-7.3) 06/16/20 04:00 Eos % (Auto) 0.0 % (0.0-4.3) 06/16/20 04:00 Baso % (Auto) 0.3 % (0.0-1.8) 06/16/20 04:00 Lymph # (Auto) 0.6 K/mm3 (1.2-5.4) L 06/16/20 04:00 [place] # (Auto) 0.5 K/mm3 (0.0-0.8) 06/16/20 04:00 Eos # (Auto) 0.0 K/mm3 (0.0-0.4) 06/16/20 04:00 Baso # (Auto) 0.0 K/mm3 (0.0-0.1) 06/16/20 04:00 Add Manual Diff Complete 06/22/20 Unknown Total Counted 100 06/22/20 Unknown Seg Neutrophils % Risk Management Director 06/16/20 04:00 Seg Neuts % (Manual) 92.0 % (40.0-70.0) H 06/22/20 Unknown Band Neutrophils % 0 % 06/15/20 Unknown Lymphocytes % (Manual) 5.0 % (13.4-35.0) L 06/22/20 Unknown Reactive Lymphs % (Man) 0 % 06/15/20 Unknown Monocytes % (Manual) 3.0 % (0.0-7.3) 06/22/20 Unknown Eosinophils % (Manual) 0 % (0.0-4.3) 06/15/20 Unknown Basophils % (Manual) 0 % (0.0-1.8) 06/15/20 Unknown Metamyelocytes % 3.0 % 06/15/20 Unknown Myelocytes % 0 % 06/15/20 Unknown Promyelocytes % 0 % 06/15/20 Unknown Blast Cells % 0 % 06/15/20 Unknown Nucleated RBC % Not Reportable 06/22/20 Unknown Seg Neutrophils # 12.7 K/mm3 (1.8-7.7) H 06/16/20 04:00 Seg Neutrophils # Man 13.0 K/mm3 (1.8-7.7) H 06/22/20 Unknown Band Neutrophils # 0.0 K/mm3 06/22/20 Unknown Lymphocytes # (Manual) 0.7 K/mm3 (1.2-5.4) L 06/22/20 Unknown Abs React Lymphs (Man) 0.0 K/mm3 06/22/20 Unknown Monocytes # (Manual) 0.4 K/mm3 (0.0-0.8) 06/22/20 Unknown Eosinophils # (Manual) 0.0 K/mm3 (0.0-0.4) 06/22/20 Unknown Basophils # (Manual) 0.0 K/mm3 (0.0-0.1) 06/22/20 Unknown Metamyelocytes # 0.0 K/mm3 06/22/20 Unknown Myelocytes # 0.0 K/mm3 06/22/20 Unknown Promyelocytes # 0.0 K/mm3 06/22/20 Unknown Blast Cells # 0.0 K/mm3 06/22/20 Unknown WBC Morphology Not Reportable 06/22/20 Unknown Hypersegmented Neuts Not Reportable 06/22/20 Unknown Hyposegmented Neuts Not Reportable 06/22/20 Unknown Hypogranular Neuts Not Reportable 06/22/20 Unknown Smudge Cells Not Reportable 06/22/20 Unknown Toxic Granulation Not Reportable 06/22/20 Unknown Toxic Vacuolation Not Reportable 06/22/20 Unknown Dohle Bodies Not Reportable 06/22/20 Unknown Pelger-Huet Anomaly Not Reportable 06/22/20 Unknown Jason Rods Not Reportable 06/22/20 Unknown Platelet Estimate Consistent w auto 06/22/20 Unknown Clumped Platelets Not Reportable 06/22/20 Unknown Plt Clumps, EDTA Not Reportable 06/22/20 Unknown Large Platelets Not Reportable 06/22/20 Unknown Giant Platelets Not Reportable 06/22/20 Unknown Platelet Satelliting Not Reportable 06/22/20 Unknown Plt Morphology Comment Not Reportable 06/22/20 Unknown RBC Morphology Not Reportable 06/22/20 Unknown Dimorphic RBCs Not Reportable 06/22/20 Unknown Polychromasia Few 06/22/20 Unknown Hypochromasia Not Reportable 06/22/20 Unknown Poikilocytosis Not Reportable 06/22/20 Unknown Anisocytosis Few 06/22/20 Unknown Microcytosis Not Reportable 06/22/20 Unknown Macrocytosis Few 06/22/20 Unknown Spherocytes Not Reportable 06/22/20 Unknown Pappenheimer Bodies Not Reportable 06/22/20 Unknown Sickle Cells Not Reportable 06/22/20 Unknown Target Cells Not Reportable 06/22/20 Unknown Tear Drop Cells Not Reportable 06/22/20 Unknown Ovalocytes Not Reportable 06/22/20 Unknown Stomatocytes Few 06/14/20 07:15 Helmet Cells Not Reportable 06/22/20 Unknown [place] Bodies Not Reportable 06/22/20 Unknown [place] Rings Not Reportable 06/22/20 Unknown [place] Cells Not Reportable 06/22/20 Unknown Bite Cells Not Reportable 06/22/20 Unknown Crenated Cell Not Reportable 06/22/20 Unknown Elliptocytes Not Reportable 06/22/20 Unknown Acanthocytes (Spur) Not Reportable 06/22/20 Unknown Rouleaux Not Reportable 06/22/20 Unknown Hemoglobin C Crystals Not Reportable 06/22/20 Unknown Schistocytes Not Reportable 06/22/20 Unknown Malaria parasites Not Reportable 06/22/20 Unknown Josue Bodies Not Reportable 06/22/20 Unknown Hem Pathologist Commnt No 06/22/20 Unknown PT 11.8 Sec. (12.2-14.9) L 06/22/20 14:29 INR 0.88 (0.87-1.13) 06/22/20 14:29 APTT 23.5 Sec. (24.2-36.6) L 06/22/20 14:29 D-Dimer 1887.82 ng/mlDDU (0-234) H 05/20/20 08:16 Heparin Anti-Xa Level 0.44 U.I./ml (0.3-0.7) 06/22/20 23:45 ABG pH 7.360 (7.320-7.450) 06/23/20 05:17 POC ABG pCO2 69.7 mmHg (32.0-48.0) H 06/23/20 05:17 ABG pCO2 69.8 mm Hg 06/22/20 03:50 POC ABG pO2 63.3 mmHg (83-108) L 06/23/20 05:17 ABG pO2 89.6 mm Hg (80.0-90.0) 06/22/20 03:50 POC ABG HCO3 38.5 06/23/20 05:17 ABG HCO3 47.5 mmol/L (20.0-26.0) H 06/22/20 03:50 ABG O2 Saturation 97.1 % (95.0-99.0) 06/22/20 03:50 ABG O2 Content 6.0 (0.0-44) 06/22/20 03:50 POC ABG Base Excess 11 06/23/20 05:17 ABG Base Excess 22.0 mmol/L (-2.0-3.0) H 06/22/20 03:50 ABG Hemoglobin 10.1 (12.0-17.5) L 06/23/20 05:17 ABG Oxyhemoglobin 86.3 (94-98) L 05/09/20 15:56 ABG Carboxyhemoglobin 2.6 % (0.0-5.0) 06/22/20 03:50 ABG Methemoglobin 0.5 % (0.0-1.5) 06/22/20 03:50 ABG Sodium 141.9 mmol/L (136.0-145.0) 06/23/20 05:17 ABG Potassium 3.3 mmol/L (3.40-4.50) L 06/23/20 05:17 ABG Chloride 99.0 mmol/L (98-107) 06/23/20 05:17 ABG Glucose 226 mg/dL (65-95) H 06/23/20 05:17 Oxyhemoglobin 94.1 % (95.0-99.0) L 06/22/20 03:50 Carboxyhemoglobin 1.3 (0.5-1.5) 05/09/20 15:56 FiO2 60 06/23/20 05:17 Sodium 142 mmol/L (137-145) 06/23/20 06:50 Potassium 3.0 mmol/L (3.6-5.0) L 06/23/20 06:50 Chloride 99.1 mmol/L (98-107) 06/23/20 06:50 Carbon Dioxide 41 mmol/L (22-30) H* 06/23/20 06:50 Anion Gap 5 mmol/L 06/23/20 06:50 BUN 26 mg/dL (9-20) H 06/23/20 06:50 Creatinine 0.4 mg/dL (0.8-1.3) L 06/23/20 06:50 Estimated GFR > 60 ml/min 06/23/20 06:50 BUN/Creatinine Ratio 65 % 06/23/20 06:50 Glucose 209 mg/dL (75-100) H 06/23/20 06:50 POC Glucose 146 mg/dL (70-105) H 06/23/20 12:04 Lactic Acid 1.80 mmol/L (0.7-2.0) 05/09/20 Unknown Calcium 9.1 mg/dL (8.4-10.2) 06/23/20 06:50 Phosphorus 3.10 mg/dL (2.5-4.5) 06/15/20 04:00 Magnesium 1.90 mg/dL (1.7-2.3) 06/15/20 04:00 Ferritin 1496.0 ng/mL (30.0-300.0) H 06/14/20 11:50 Total Bilirubin 0.60 mg/dL (0.1-1.2) 06/23/20 06:50 Direct Bilirubin 0.6 mg/dL (0-0.2) H 05/11/20 07:30 Indirect Bilirubin 0.9 mg/dL 05/11/20 07:30 AST 15 units/L (5-40) 06/23/20 06:50 ALT 23 units/L (7-56) 06/23/20 06:50 Alkaline Phosphatase 78 units/L (35-129) 06/23/20 06:50 Lactate Dehydrogenase 705 units/L (91-180) H 05/20/20 08:16 C-Reactive Protein 3.10 mg/dL (0.00-1.30) H 05/20/20 08:16 Total Protein 6.3 g/dL (6.3-8.2) 06/23/20 06:50 Albumin 2.9 g/dL (3.9-5) L 06/23/20 06:50 Albumin/Globulin Ratio 0.9 % 06/23/20 06:50 Triglycerides 152 mg/dL (2-149) H 06/15/20 05:00 Procalcitonin 0.94 ng/mL (<0.15) 06/14/20 11:50 Arterial Blood Glucose 226 mg/dL (65-95) H 06/23/20 05:17 Arterial Blood Ionized Calcium 4.7 mg/dL (4.6-5.3) 06/23/20 05:17 Urine Color Fauzia (Yellow) 05/10/20 Unknown Urine Turbidity Clear (Clear) 05/10/20 Unknown Urine pH 5.0 (5.0-7.0) 05/10/20 Unknown Ur Specific [place] 1.019 (1.003-1.030) 05/10/20 Unknown Urine Protein 100 mg/dl mg/dL (Negative) 05/10/20 Unknown Urine Glucose (UA) Neg mg/dL (Negative) 05/10/20 Unknown Urine Ketones Neg mg/dL (Negative) 05/10/20 Unknown Urine Blood Lg (Negative) 05/10/20 Unknown Urine Nitrite Neg (Negative) 05/10/20 Unknown Urine Bilirubin Neg (Negative) 05/10/20 Unknown Urine Urobilinogen 2.0 mg/dL (<2.0) 05/10/20 Unknown Ur Leukocyte Esterase Neg (Negative) 05/10/20 Unknown Urine WBC (Auto) 11.0 /HPF (0.0-6.0) H 05/10/20 Unknown Urine RBC (Auto) 2.0 /HPF (0.0-6.0) 05/10/20 Unknown U Epithel Cells (Auto) 1.0 /HPF (0-13.0) 05/10/20 Unknown Urine Bacteria (Auto) 1+ /HPF (Negative) 05/10/20 Unknown Urine Mucus Few /HPF 05/10/20 Unknown Plasma/Serum Alcohol < 0.01 % (0-0.07) 05/09/20 14:20 Coronavirus (PCR) Positive (Negative) A 05/10/20 Unknown SARS-CoV-2 IgG Ab Reactive (NonReactive) A 05/11/20 07:30 Blood Type B POSITIVE 06/21/20 14:18 Antibody Screen Negative 06/21/20 14:18 Crossmatch See Detail 06/21/20 14:18 Microbiology: Microbiology 06/22/20 Unknown Stool Stool Occult Blood (DOLLY) - Final - Diagnostic Impressions Diagnostic Impressions: Echocardiogram 05/20/20 13:02 Transthoracic Echocardiogram Indication: CHF BP: 97/73 Conclusions *The study quality is technically very difficult and limited. *The left ventricular chamber size, wall thickness and systolic function are within normal limits. There are no wall motion abnormalities observed. Ejection fraction is normal. *The estimated ejection fraction is 60-65%. *The pericardium appears normal. Findings Procedure Info: The study quality is technically difficult. Left Ventricle: The left ventricular chamber size, wall thickness and systolic function are within normal limits. There are no wall motion abnormalities observed. Ejection fraction is normal. The estimated ejection fraction is 60-65%. Abnormal left ventricular diastolic filling is observed, consistent with impaired relaxation. Left Atrium: The left atrium is normal in size with no visual thrombus identified. Right Ventricle: The right ventricle is not well visualized. Right Atrium: The right atrium is not well visualized. Aortic Valve: The aortic valve is trileaflet. The leaflets are thin with normal excursion. There is no aortic stenosis or regurgitation present. Mitral Valve: The mitral valve appears normal in structure and function. Tricuspid Valve: The tricuspid valve appears normal in structure and function. Unable to estimate the right ventricular systolic pressure. Pulmonic Valve: The pulmonic valve is not well visualized. There is no evidence of pulmonic regurgitation. There is no pulmonic stenosis. Pericardium: The pericardium appears normal. Pulmonary Artery: The main pulmonary artery is not well visualized. Venous: The inferior vena cava appears normal in size. Measurements Chambers 2D Name Value Normal Range IVSd (2D) 0.83 cm (0.6 - 1.1) LVPWd (2D) 0.83 cm (0.6 - 1.1) LVIDd (2D) 3.88 cm (3.7 - 5.6) LVIDs (2D) 2.46 cm (2 - 3.8) LV FS (2D) 36.52 % - EF Teichholz (2D) 66.97 % - Ao root diameter (2D) 3.47 cm (2 - 3.7) Volumes/Mass Name Value Normal Range LA ESV SP 4CH (A/L) 22.4 ml - LA ESV SP 2CH (A/L) 22.89 ml - LA ESV BP (A/L) 23.06 ml - LA ESV SP 4CH (MOD) 21.09 ml - LA ESV SP 2CH (MOD) 22.44 ml - Diastolic/Systolic Function Name Value Normal Range MV E-wave Vmax 0.48 m/sec - MV deceleration time 156.3 msec - MV A-wave Vmax 0.59 m/sec - MV E:A ratio 0.81 ratio - Aortic Valve Name Value Normal Range AV Vmax 0.97 m/sec - AV VTI 14.49 cm - AV peak gradient 3.73 mmHg - AV mean gradient 1.89 mmHg - LVOT diameter 2.09 cm - LVOT Vmax 0.72 m/sec - LVOT VTI 10.21 cm - LVOT peak gradient 2.05 mmHg - LVOT mean gradient 1.03 mmHg - SV LVOT 35.17 ml - INNA (continuity Vmax) 2.55 cm2 - INNA (continuity VTI) 2.43 cm2 - Tricuspid Valve Name Value Normal Range TV E-wave Vmax 0.37 m/sec - Pulmonic Valve/Qp:Qs Name Value Normal Range PV Vmax 0.72 m/sec - PV peak gradient 2.06 mmHg - RVOT Vmax 0.85 m/sec - RVOT VTI 9.89 cm - RVOT peak gradient 2.9 mmHg - PV acceleration time 72.31 msec - Cantor/IV: Voiding Method Condom Catheter IV Catheter Type [Right Upper PICC Line arm] IV Catheter Type [Right CVL Internal Jugular] IV Catheter Type [Right Peripheral IV Forearm] IV Catheter Type [Left Forearm Peripheral IV ] IV Catheter Type [Left Wrist] INT / Saline Lock IV Catheter Type [Right Hand] INT / Saline Lock IV Catheter Type [Left Hand] INT / Saline Lock IV Catheter Type [Left Peripheral IV Antecubital] Active Medications - Current Medications Current Medications: Generic Name Dose Route Start Last Admin Trade Name Freq PRN Reason Stop Dose Admin Acetaminophen 650 mg 06/14/20 10:07 06/21/20 20:21 Tylenol FEEDTUBE 650 mg Q4H PRN Administration Pain, Mild (1-3) Alprazolam 0.25 mg 05/20/20 17:53 06/08/20 08:29 Alprazolam 0.25 Mg Tab PO 0.25 mg Q8H PRN Administration Anxiety Lipase/Protease/Amylase 1 each 05/22/20 13:01 Lipase 10,500/Protease 25,000/Amylase 43,750 (Units) Dr Newell FEEDTUBE PRN PRN For Clogged Feeding Tube Bisacodyl 10 mg 06/07/20 10:00 06/23/20 11:14 Dulcolax CO Not Given QDAY DESIRE Docusate Sodium 100 mg 05/28/20 14:00 06/23/20 09:21 Colace PO 100 mg BID DESIRE Administration Fentanyl 50 mcg 06/22/20 09:48 Fentanyl 100 Mcg/2 Ml Inj IV Q10MIN PRN ANALGESIA Folic Acid 1 mg 05/09/20 15:36 06/23/20 09:21 Folvite PO 1 mg QDAY DESIRE Administration Heparin Sodium (Porcine) 4,300 unit 06/22/20 12:48 Heparin 10,000 Units/10 Ml Vial 40 unit/kg (4300 unit) IV Q6H PRN Anti-Xa Assay < 0.1 units/ml Hydrophilic Ointment 1 applic 05/21/20 20:33 Lip Therapy Vaseline TP Q2HR PRN Dry Lips Midazolam HCl 100 mg/ Sodium 100 mls @ 2 mls/hr 06/02/20 14:00 06/22/20 19:54 Chloride IV 5 mg/hr TITR DESIRE 5 mls/hr Administration Protocol 2 MG/HR Norepinephrine 4 mg in 250 mls @ 7.5 mls/hr 06/04/20 16:00 06/23/20 11:44 Levophed Drip 4 Mg/Ns 250 Ml IV 6 mcg/min TITR DESIRE 22.5 mls/hr Titration Protocol 2 MCG/MIN Propofol 500 mg in 50 mls @ 3.309 mls/hr 06/08/20 11:00 06/17/20 18:25 Propofol IV 35 mcg/kg/min TITR DESIRE 23.163 mls/hr Administration Protocol 5 MCG/KG/MIN Fentanyl Citrate 2,000 mcg in 100 mls @ 5.32 mls/hr 06/09/20 14:00 06/23/20 14:03 Fentanyl Drip Premix IV 4 mcg/kg/hr TITR DESIRE 21.28 mls/hr Administration Protocol 1 MCG/KG/HR Vasopressin 20 unit/ Sodium 101 mls @ 9.09 mls/hr 06/09/20 18:00 Chloride IV TITR [facility] Protocol 0.03 UNITS/MIN Heparin Sodium/Sodium Chloride 25,000 unit in 500 mls @ 30 mls/hr 06/22/20 13:00 06/23/20 09:58 Heparin/ 0.45% Nacl-25,000 Unit/500 Ml IV 1,500 units/hr TITR DESIRE 30 mls/hr Administration Protocol 1,500 UNITS/HR Potassium Chloride 10 meq in 100 mls @ 100 mls/hr 06/23/20 16:00 Kcl 10meq/100ml IV 06/23/20 16:59 Q1H [facility] Insulin Glargine 20 units 06/18/20 22:00 06/22/20 21:55 Insulin Glargine 100 Units/Ml SUB-Q 20 units QHS [facility] Administration Insulin Human Lispro 0 unit 05/29/20 14:00 06/23/20 12:10 Humalog SUB-Q Not Given Q6H [facility] Protocol Methylprednisolone Sodium Succinate 40 mg 05/20/20 18:00 06/22/20 17:20 Methylprednisolone Sod Succinate 40 Mg/1 Ml Inj IV 40 mg Q12H [facility] Administration Multi-Ingred Cream/Lotion/Oil/Oint 1 applic 05/21/20 20:33 Mineral Oil/Petrolatum, White Ophth Oint 3.5 Gm OU Q4HR PRN Dry Eye(s) Pantoprazole Sodium 40 mg 06/23/20 10:00 06/23/20 11:19 Pantoprazole 40 Mg Inj IV 40 mg QDAY DESIRE Administration Phenobarbital 20 mg 06/18/20 14:00 06/23/20 13:02 Phenobarbital 20 Mg/5 Ml Oral Liqd FEEDTUBE 20 mg Q8HR DESIRE Administration Polyethylene Glycol 17 gm 05/28/20 22:00 06/22/20 21:54 Miralax 3350 PO 17 gm QHS DESIRE Administration Quetiapine Fumarate 300 mg 06/10/20 22:00 06/23/20 09:21 Seroquel PO 300 mg BID DESIRE Administration Senna 17.2 mg 06/07/20 10:00 06/23/20 11:15 Senokot PO Not Given BID DESIRE Simethicone 160 mg 06/22/20 13:00 06/23/20 12:09 Simethicone 80 Mg Chew Tab PO 06/27/20 07:01 160 mg Q6H DESIRE Administration Simple Syrup 15 ml 05/22/20 13:01 Simple Syrup 15 Ml FEEDTUBE PRN PRN Hypoglycemia Simple Syrup 30 ml 05/22/20 13:01 Simple Syrup 15 Ml FEEDTUBE PRN PRN Hypoglycemia Sodium Bicarbonate 325 mg 05/22/20 13:01 Sodium Bicarbonate 325 Mg Tab FEEDTUBE PRN PRN For Clogged Feeding Tube Sodium Chloride 10 ml 05/09/20 22:00 06/23/20 11:14 Sodium Chloride Flush Syringe 10 Ml IV 10 ml BID DESIRE Administration Nutrition/Malnutrition Assess - Dietary Evaluation Nutrition/Malnutrition Findings: Nutrition Notes Start: 05/17/20 14:10 Freq: Status: Active Protocol: Document 06/17/20 12:23 AB (Rec: 06/17/20 12:29 AB [id number]) Co-Sign 06/17/20 12:23 LM Nutrition Notes Initial or Follow up Reassessment Current Diagnosis Sepsis,Respiratory Failure Other Pertinent Diagnosis Bilat pneu, COVID-19 (+), EtOH dependence Current Diet Vital HP at 65 ml/hr (goal rate) Labs/Tests POC BG 221 Pertinent Medications Propofol at 19.854 ml/hr Height 6 ft Weight 107.1 kg [place] Body Weight (kg) 80.90 BMI 32.0 Weight Status Obese Subjective/Other Information F/U for TF tolerate/rate and oral secretions. Mixer Driver observed TF running at goal rate. Per RN, pt still having cream colored oral secretions. Percent of energy/protein needs met: 86%/84% Burn Absent Trauma Absent GI Symptoms None Current % PO Negligible Minimum of two criteria No physical signs of malnutrition #1 Nutrition Diagnosis Inadequate oral intake Diagnosis Progress(for reassessment Continues documentation) Is patient on ventilator? Yes Is Patient Ambulatory and/or Out of Bed No REE-([place]-confined to bed) 2360.412 Kcal/Kg value to use for calculation 17 Approximate Energy Requirements Using 1821 kcal/Kg Calculation Used for Recommendations Kcal/kg Additional Notes Pro needs >2g/kg IBW: at least 162g/day Fluid needs 1ml/kcal Nutrition Intervention Change Diet Order: Continue TF with rate change Nutrition Support: Vital HP at 65ml/hr with 50ml water flush q4h. For hyponatremia, flush 50 ml q6h Kcal 1,560 Protein (gm) 136 Fluid (mL) 1,304 Goal #1 TF tolerance Goal #2 TF (at goal rate) to meet at least 75% energy and pro needs Anticipated Discharge Needs: Unable to identify at this time Follow-Up By: 06/24/20 Additional Comments F/U for TF tolerance and BM
[2020-06-23] MEDS ORDERED: POTASSIUM CHLORIDE 10 MEQ 10 MEQ/100 ML BAG IV SCH (16:00)
[2020-06-23] MEDS: MIDAZOLAM 100 MG in SODIUM CHLORIDE 0.9% 80 ML IV SCH (16:33)
[2020-06-23] MEDS: NORepinephrine/NS 4 MG-250 ML 4 MG/250 ML BAG IV SCH (16:35)
[2020-06-23] MEDS: methylPREDNISolone Sod Succinate 40 MG/1 ML INJ IV SCH (17:18)
[2020-06-23] MEDS: INSULIN GLARGINE 100 UNITS/ML SUB-Q SCH (21:32)
[2020-06-23] MEDS: POLYETHYLENE GLYCOL 3350 17 GM POWDER PO SCH (21:32)
[2020-06-23] MEDS: ALPRAZolam 0.25 MG TAB PO PRN (21:33)
[2020-06-24 00:30] LABS: Hematocrit 24.9 % (35.5-45.6); Hemoglobin 8.2 gm/dl (11.8-15.2)
[2020-06-24] MEDS: INSULIN LISPRO 100 UNIT/ML VIAL 3 mL SUB-Q SCH ×4 (01:11→18:13)
[2020-06-24] MEDS: SIMETHICONE 80 MG CHEW TAB PO SCH ×4 (01:12→19:39)
[2020-06-24] MEDS: HEPARIN/ 0.45% NACL DRIP 25,000 UNIT/500 ML BAG IV SCH ×2 (02:47→19:42)
[2020-06-24] MEDS: fentaNYL DRIP Premix 2,000 MCG/100 ML BAG IV SCH ×5 (02:49→20:53)
[2020-06-24 03:18] LABS: Hematocrit 26.8 % (35.5-45.6); Hemoglobin 8.8 gm/dl (11.8-15.2)
[2020-06-24 03:30] LABS: Alanine Aminotransferase 24 units/L (7-56); Albumin 2.6 g/dL (3.9-5); Blood Urea Nitrogen 24 mg/dL (9-20); Calcium 8.6 mg/dL (8.4-10.2); Hemolysis Index 23
[2020-06-24 03:32] LABS: BUN/Creatinine Ratio 80
[2020-06-24] MEDS: NORepinephrine/NS 4 MG-250 ML 4 MG/250 ML BAG IV SCH ×2 (03:43→13:47)
--- NOTE | 2020-06-24 06:09 | Consultation ---
History of Present Illness - Reason for Consult Consult date: 06/23/20 Colon distention and Heme + stool Requesting physician: DESTINEE LYNCH - History of Present Illness Mr Weston is a 50 yo BM admitted 05/09/20 with COVID-19 pneumonia, intubated since 05/21/20 for respiratory failure, with ATN and a hx of EtOH abuse, on whom I am consulted for transverse colon distention first noted on 06/20/20, who also had a recent decrease in Hgb to ~6, from 8, and has Heme + stool. Of note, pt had chest tube placed yesterday for pneumothorax presumed due to barotrauma from high pressure ventilation. Per RN, pt had 3 loose brown stools overnight. He was on tube feeding til last night, and tolerating it well with no significant residuals. Meds reviewed. History obtained from chart, and RN. Past History Past Medical History: other (See HPI) Past Surgical History: No surgical history, Other (Reviewed) Social history: single, alcohol abuse Family history: diabetes, hypertension Medications and Allergies Allergies Allergy/AdvReac Type Severity Reaction Status Date / Time No Known Allergies Allergy Unverified 05/09/20 14:23 Home Medications Medication Instructions Recorded Confirmed Last Taken Type No Known Home Medications [No 05/09/20 05/09/20 Unknown History Reported Home Medications] Active Meds: Active Medications Acetaminophen (Tylenol) 650 mg FEEDTUBE Q4H PRN PRN Reason: Pain, Mild (1-3) Last Admin: 06/21/20 20:21 Dose: 650 mg Documented by: Alprazolam (Alprazolam 0.25 Mg Tab) 0.25 mg PO Q8H PRN PRN Reason: Anxiety Last Admin: 06/23/20 21:33 Dose: 0.25 mg Documented by: Lipase/Protease/Amylase (Lipase 10,500/Protease 25,000/Amylase 43,750 (Units) Dr Newell) 1 each FEEDTUBE PRN PRN PRN Reason: For Clogged Feeding Tube Bisacodyl (Dulcolax) 10 mg IA QDAY DESIRE Last Admin: 06/23/20 11:14 Dose: Not Given Documented by: Docusate Sodium (Colace) 100 mg PO BID [facility] Last Admin: 06/23/20 21:32 Dose: 100 mg Documented by: Fentanyl (Fentanyl 100 Mcg/2 Ml Inj) 50 mcg IV Q10MIN PRN PRN Reason: ANALGESIA Folic Acid (Folvite) 1 mg PO QDAY DESIRE Last Admin: 06/23/20 09:21 Dose: 1 mg Documented by: Heparin Sodium (Porcine) (Heparin 10,000 Units/10 Ml Vial) 4,300 unit 40 unit/kg (4300 unit) IV Q6H PRN PRN Reason: Anti-Xa Assay < 0.1 units/ml Hydrophilic Ointment (Lip Therapy Vaseline) 1 applic TP Q2HR PRN PRN Reason: Dry Lips Midazolam HCl 100 mg/ Sodium (Chloride) 100 mls @ 2 mls/hr IV TITR DESIRE; Protocol Last Admin: 06/23/20 16:33 Dose: 5 mg/hr, 5 mls/hr Documented by: Norepinephrine (Levophed Drip 4 Mg/Ns 250 Ml) 4 mg in 250 mls @ 7.5 mls/hr IV TITR DESIRE; Protocol Last Admin: 06/24/20 03:43 Dose: 6 mcg/min, 22.5 mls/hr Documented by: Propofol (Propofol) 500 mg in 50 mls @ 3.309 mls/hr IV TITR DESIRE; Protocol Last Admin: 06/17/20 18:25 Dose: 35 mcg/kg/min, 23.163 mls/hr Documented by: Fentanyl Citrate (Fentanyl Drip Premix) 2,000 mcg in 100 mls @ 5.32 mls/hr IV TITR DESIRE; Protocol Last Admin: 06/24/20 02:49 Dose: 4 mcg/kg/hr, 21.28 mls/hr Documented by: Vasopressin 20 unit/ Sodium (Chloride) 101 mls @ 9.09 mls/hr IV TITR DESIRE; Protocol Heparin Sodium/Sodium Chloride (Heparin/ 0.45% Nacl-25,000 Unit/500 Ml) 25,000 unit in 500 mls @ 30 mls/hr IV TITR DESIRE; Protocol Last Admin: 06/24/20 02:47 Dose: 1,500 units/hr, 30 mls/hr Documented by: Insulin Glargine (Insulin Glargine 100 Units/Ml) 20 units SUB-Q QHS DESIRE Last Admin: 06/23/20 21:32 Dose: 20 units Documented by: Insulin Human Lispro (Humalog) 0 unit SUB-Q Q6H DESIRE; Protocol Last Admin: 06/24/20 01:11 Dose: 4 unit Documented by: Methylprednisolone Sodium Succinate (Methylprednisolone Sod Succinate 40 Mg/1 Ml Inj) 40 mg IV Q12H [facility] Last Admin: 06/23/20 17:18 Dose: 40 mg Documented by: Multi-Ingred Cream/Lotion/Oil/Oint (Mineral Oil/Petrolatum, White Ophth Oint 3.5 Gm) 1 applic OU Q4HR PRN PRN Reason: Dry Eye(s) Pantoprazole Sodium (Pantoprazole 40 Mg Inj) 40 mg IV QDAY [facility] Last Admin: 06/23/20 11:19 Dose: 40 mg Documented by: Phenobarbital (Phenobarbital 20 Mg/5 Ml Oral Liqd) 20 mg FEEDTUBE Q8HR [facility] Last Admin: 06/23/20 21:32 Dose: 20 mg Documented by: Polyethylene Glycol (Miralax [id number]) 17 gm PO QHS [facility] Last Admin: 06/23/20 21:32 Dose: 17 gm Documented by: Quetiapine Fumarate (Seroquel) 300 mg PO BID [facility] Last Admin: 06/23/20 21:33 Dose: 300 mg Documented by: Senna (Senokot) 17.2 mg PO BID [facility] Last Admin: 06/23/20 21:33 Dose: 17.2 mg Documented by: Simethicone (Simethicone 80 Mg Chew Tab) 160 mg PO Q6H [facility] Stop: 06/27/20 07:01 Last Admin: 06/24/20 01:12 Dose: 160 mg Documented by: Simple Syrup (Simple Syrup 15 Ml) 15 ml FEEDTUBE PRN PRN PRN Reason: Hypoglycemia Simple Syrup (Simple Syrup 15 Ml) 30 ml FEEDTUBE PRN PRN PRN Reason: Hypoglycemia Sodium Bicarbonate (Sodium Bicarbonate 325 Mg Tab) 325 mg FEEDTUBE PRN PRN PRN Reason: For Clogged Feeding Tube Sodium Chloride (Sodium Chloride Flush Syringe 10 Ml) 10 ml IV BID [facility] Last Admin: 06/23/20 21:35 Dose: 10 ml Documented by: Exam - Physical Exam Narrative exam: Due to pt being COVID positive, I did not enter pt room as no absolute need at present. - Constitutional Vitals: Temp Pulse Resp BP Pulse Ox 98.4 F 100 H 25 H 112/71 96 06/24/20 03:57 06/24/20 05:16 06/24/20 05:16 06/24/20 05:16 06/24/20 05:16 Results - Labs CBC & Chem 7: 06/24/20 02:39 06/24/20 02:39 Labs: Abnormal lab results 06/23/20 06/23/20 06/23/20 Range/Units 05:17 06:50 09:41 Hgb 9.1 L (11.8-15.2) gm/dl Hct 28.0 L (35.5-45.6) % POC ABG pCO2 69.7 H (32.0-48.0) mmHg POC ABG pO2 63.3 L (83-108) mmHg ABG Hemoglobin 10.1 L (12.0-17.5) ABG Potassium 3.3 L (3.40-4.50) mmol/L ABG Glucose 226 H (65-95) mg/dL Sodium (137-145) mmol/L Potassium 3.0 L (3.6-5.0) mmol/L Chloride (98-107) mmol/L Carbon Dioxide 41 H* (22-30) mmol/L BUN 26 H (9-20) mg/dL Creatinine 0.4 L (0.8-1.3) mg/dL Glucose 209 H (75-100) mg/dL POC Glucose (70-105) mg/dL Total Protein (6.3-8.2) g/dL Albumin 2.9 L (3.9-5) g/dL Arterial Blood Glucose 226 H (65-95) mg/dL 06/23/20 06/23/20 06/23/20 Range/Units 12:04 18:16 23:24 Hgb (11.8-15.2) gm/dl Hct (35.5-45.6) % POC ABG pCO2 (32.0-48.0) mmHg POC ABG pO2 (83-108) mmHg ABG Hemoglobin (12.0-17.5) ABG Potassium (3.40-4.50) mmol/L ABG Glucose (65-95) mg/dL Sodium (137-145) mmol/L Potassium (3.6-5.0) mmol/L Chloride (98-107) mmol/L Carbon Dioxide (22-30) mmol/L BUN (9-20) mg/dL Creatinine (0.8-1.3) mg/dL Glucose (75-100) mg/dL POC Glucose 146 H 162 H 248 H (70-105) mg/dL Total Protein (6.3-8.2) g/dL Albumin (3.9-5) g/dL Arterial Blood Glucose (65-95) mg/dL 06/23/20 06/24/20 06/24/20 Range/Units 23:41 02:39 02:39 Hgb 8.2 L 8.8 L (11.8-15.2) gm/dl Hct 24.9 L 26.8 L (35.5-45.6) % POC ABG pCO2 (32.0-48.0) mmHg POC ABG pO2 (83-108) mmHg ABG Hemoglobin (12.0-17.5) ABG Potassium (3.40-4.50) mmol/L ABG Glucose (65-95) mg/dL Sodium 136 L (137-145) mmol/L Potassium (3.6-5.0) mmol/L Chloride 95.0 L (98-107) mmol/L Carbon Dioxide 34 H D (22-30) mmol/L BUN 24 H (9-20) mg/dL Creatinine 0.3 L (0.8-1.3) mg/dL Glucose 260 H (75-100) mg/dL POC Glucose (70-105) mg/dL Total Protein 5.2 L (6.3-8.2) g/dL Albumin 2.6 L (3.9-5) g/dL Arterial Blood Glucose (65-95) mg/dL 06/24/20 Range/Units 05:31 Hgb (11.8-15.2) gm/dl Hct (35.5-45.6) % POC ABG pCO2 (32.0-48.0) mmHg POC ABG pO2 (83-108) mmHg ABG Hemoglobin (12.0-17.5) ABG Potassium (3.40-4.50) mmol/L ABG Glucose (65-95) mg/dL Sodium (137-145) mmol/L Potassium (3.6-5.0) mmol/L Chloride (98-107) mmol/L Carbon Dioxide (22-30) mmol/L BUN (9-20) mg/dL Creatinine (0.8-1.3) mg/dL Glucose (75-100) mg/dL POC Glucose 164 H (70-105) mg/dL Total Protein (6.3-8.2) g/dL Albumin (3.9-5) g/dL Arterial Blood Glucose (65-95) mg/dL - Imaging and Cardiology Abdominal x-ray: image reviewed (Transverse colon distention first noted on 06/20 film, and stable on 06/22 film.) Assessment and Plan 1. Transverse colon distention - pt may be developing ileus due to illness, or ischemic process. He is on pressors. Recent pneumothorax may have been an additional comorbidity that could precipitate this. As he is having BMs, and no rosette blood, no specific intervention warranted at present. - optimize lytes - attempt to reduce pressors - continue TF - monitor distention with serial imaging. 2. Heme + stool -no gross blood noted in stool. Could be related to #1, with ischemia. Stress-induced PUD a consideration given prolonged mechanical ventilation. - initiate PPI 3. Anemia - multifactorial. No evidence of significant gross GI bleed.
--- NOTE | 2020-06-24 06:15 | XRay Report ---
CHEST 1 VIEW, 06/24/2020 4:58 AM CLINICAL INFORMATION/INDICATION: Pneumothorax COMPARISON: Chest radiograph, 06/22/2020 at 2:30 AM FINDINGS: SUPPORT DEVICES: Support tubes and lines remain in stable position. HEART: The cardiac silhouette is normal in size. LUNGS/PLEURA: Diffuse bilateral pulmonary opacities have not significantly changed. No pneumothorax i s visualized. ADDITIONAL FINDINGS: Small amount of subcutaneous emphysema is noted within the neck. IMPRESSION: 1. Stable appearance of bilateral pulmonary opacities. Signer Name: Teresa Vee MD Signed: 06/24/2020 6:11 AM Workstation Name: [id number]
[2020-06-24] MEDS: ALPRAZolam 0.25 MG TAB PO PRN (06:35)
[2020-06-24] MEDS: PHENobarbital 20 MG/5 ML ORAL LIQD FEEDTUBE SCH ×3 (06:35→22:41)
[2020-06-24] MEDS: methylPREDNISolone Sod Succinate 40 MG/1 ML INJ IV SCH ×2 (06:35→19:40)
[2020-06-24] MEDS: PROPOFOL 500 MG/50 ML IV SCH ×3 (07:56→19:58)
[2020-06-24] MEDS: MIDAZOLAM 100 MG in SODIUM CHLORIDE 0.9% 80 ML IV SCH (08:43)
[2020-06-24] MEDS: FOLIC ACID 1 MG TAB PO SCH (09:47)
[2020-06-24] MEDS: QUEtiapine 100 MG TAB PO SCH ×2 (09:47→22:41)
[2020-06-24] MEDS: SENNOSIDES 8.6 MG TAB PO SCH ×2 (09:47→22:40)
[2020-06-24] MEDS: DOCUSATE SODIUM 100 MG/10 ML ORAL LIQD PO SCH ×2 (09:47→22:40)
[2020-06-24] MEDS: PANTOPRAZOLE 40 MG INJ IV SCH (09:47)
--- NOTE | 2020-06-24 11:54 | Progress Note ---
Assessment and Plan 1. Transverse colon distention - CXR today showed no distention on visible portion of abdomen. Pt may be developing ileus due to illness, or ischemic process. He is on pressors. Recent pneumothorax may have been an additional comorbidity that could precipitate this. As he is having BMs, and no rosette blood, no specific intervention warranted at present. - optimize lytes - attempt to reduce pressors - continue TF - monitor distention with serial imaging. 2. Heme + stool -no gross blood noted in stool. Could be related to #1, with ischemia. Stress-induced PUD a consideration given prolonged mechanical ventilation. - initiate PPI 3. Anemia - multifactorial. Hgb 8.8 today. No evidence of significant gross GI bleed. Subjective Date of service: 06/24/20 Principal diagnosis: Ac hypoxemic resp failure; COVID-19; Severe Sepsis; Shaggy PNA; Alcohol Abuse Interval history: Pt had 1 loose brown BM last night. [place] TF, with no residual, per RN. Objective - Exam Narrative Exam: Due to pt being COVID positive, I did not enter pt room as no absolute need at present. - Constitutional Vitals: Vital Signs - 12hr 06/24/20 06/24/20 06/24/20 00:00 00:15 00:30 Temperature 99.2 F Pulse Rate 110 H 109 H 106 H Pulse Rate [ 100 H From Monitor] Respiratory 30 H 30 H 31 H Rate Blood Pressure 93/65 89/60 93/51 O2 Sat by Pulse 94 96 96 Oximetry 06/24/20 06/24/20 06/24/20 00:45 01:00 01:15 Temperature Pulse Rate 103 H 102 H 101 H Pulse Rate [ From Monitor] Respiratory 30 H 30 H 30 H Rate Blood Pressure 90/60 92/60 100/59 O2 Sat by Pulse 96 97 Oximetry 06/24/20 06/24/20 06/24/20 01:30 01:45 02:00 Temperature Pulse Rate 99 H 96 H 98 H Pulse Rate [ From Monitor] Respiratory 30 H 30 H 30 H Rate Blood Pressure 90/55 87/60 91/62 O2 Sat by Pulse 97 99 97 Oximetry 06/24/20 06/24/20 06/24/20 02:15 02:30 02:45 Temperature Pulse Rate 96 H 95 H 89 Pulse Rate [ From Monitor] Respiratory 30 H 30 H 23 Rate Blood Pressure 92/63 89/58 98/62 O2 Sat by Pulse 98 98 100 Oximetry 06/24/20 06/24/20 06/24/20 03:00 03:15 03:26 Temperature Pulse Rate 92 H 90 68 Pulse Rate [ From Monitor] Respiratory 30 H 30 H Rate Blood Pressure 94/56 94/55 94/55 O2 Sat by Pulse 97 96 98 Oximetry 06/24/20 06/24/20 06/24/20 03:30 03:45 03:57 Temperature 98.4 F Pulse Rate 90 87 Pulse Rate [ From Monitor] Respiratory 30 H 30 H Rate Blood Pressure 87/57 92/58 O2 Sat by Pulse 97 97 Oximetry 06/24/20 06/24/20 06/24/20 04:00 04:15 04:30 Temperature Pulse Rate 91 H 90 89 Pulse Rate [ 90 From Monitor] Respiratory 30 H 30 H 30 H Rate Blood Pressure 94/64 95/62 95/60 O2 Sat by Pulse 97 97 98 Oximetry 06/24/20 06/24/20 06/24/20 04:45 05:00 05:16 Temperature Pulse Rate 86 87 100 H Pulse Rate [ From Monitor] Respiratory 30 H 30 H 25 H Rate Blood Pressure 97/61 95/60 112/71 O2 Sat by Pulse 100 99 96 Oximetry 06/24/20 06/24/20 06/24/20 05:30 05:46 06:00 Temperature Pulse Rate 104 H 107 H 102 H Pulse Rate [ From Monitor] Respiratory 22 31 H 31 H Rate Blood Pressure 112/71 133/84 133/84 O2 Sat by Pulse 95 87 87 Oximetry 06/24/20 06/24/20 06/24/20 06:15 06:30 06:45 Temperature Pulse Rate 112 H 130 H 97 H Pulse Rate [ From Monitor] Respiratory 19 25 H 30 H Rate Blood Pressure 156/116 156/116 142/63 O2 Sat by Pulse 83 L 80 L 92 Oximetry 06/24/20 06/24/20 06/24/20 07:00 07:15 07:30 Temperature Pulse Rate 116 H 108 H 122 H Pulse Rate [ From Monitor] Respiratory 25 H 31 H 34 H Rate Blood Pressure 169/94 167/97 142/96 O2 Sat by Pulse 99 84 88 Oximetry 06/24/20 06/24/20 06/24/20 07:46 08:00 08:16 Temperature 98.9 F Pulse Rate 133 H 122 H 129 H Pulse Rate [ 119 H From Monitor] Respiratory 23 25 H 18 Rate Blood Pressure 106/85 106/85 106/85 O2 Sat by Pulse 95 90 89 Oximetry 06/24/20 06/24/20 06/24/20 08:30 08:46 09:00 Temperature Pulse Rate 125 H 132 H 116 H Pulse Rate [ From Monitor] Respiratory 22 24 20 Rate Blood Pressure 106/85 106/85 106/85 O2 Sat by Pulse 91 92 95 Oximetry 06/24/20 06/24/20 06/24/20 09:08 09:16 09:30 Temperature Pulse Rate 116 H 119 H 120 H Pulse Rate [ From Monitor] Respiratory 29 H 28 H Rate Blood Pressure 106/85 106/85 O2 Sat by Pulse 99 100 96 Oximetry 06/24/20 06/24/20 06/24/20 09:46 10:00 10:15 Temperature Pulse Rate 114 H 118 H 119 H Pulse Rate [ From Monitor] Respiratory 26 H 19 20 Rate Blood Pressure 106/85 104/57 101/58 O2 Sat by Pulse 92 98 97 Oximetry 06/24/20 06/24/20 06/24/20 10:30 10:45 11:00 Temperature Pulse Rate 112 H 113 H 119 H Pulse Rate [ From Monitor] Respiratory 30 H 30 H 20 Rate Blood Pressure 98/65 101/65 110/61 O2 Sat by Pulse 96 94 95 Oximetry 06/24/20 06/24/20 11:15 11:30 Temperature Pulse Rate 120 H 122 H Pulse Rate [ From Monitor] Respiratory 28 H 23 Rate Blood Pressure 102/70 107/72 O2 Sat by Pulse 94 97 Oximetry - Labs CBC & Chem 7: 06/24/20 02:39 06/24/20 02:39 Labs: Abnormal lab results 06/23/20 06/23/20 06/23/20 Range/Units 12:04 18:16 23:24 Hgb (11.8-15.2) gm/dl Hct (35.5-45.6) % POC ABG pCO2 (32.0-48.0) mmHg POC ABG pO2 (83-108) mmHg ABG Hemoglobin (12.0-17.5) ABG Sodium (136.0-145.0) mmol/L ABG Chloride (98-107) mmol/L ABG Glucose (65-95) mg/dL Sodium (137-145) mmol/L Chloride (98-107) mmol/L Carbon Dioxide (22-30) mmol/L BUN (9-20) mg/dL Creatinine (0.8-1.3) mg/dL Glucose (75-100) mg/dL POC Glucose 146 H 162 H 248 H (70-105) mg/dL Total Protein (6.3-8.2) g/dL Albumin (3.9-5) g/dL Arterial Blood Glucose (65-95) mg/dL 06/23/20 06/24/20 06/24/20 Range/Units 23:41 02:39 02:39 Hgb 8.2 L 8.8 L (11.8-15.2) gm/dl Hct 24.9 L 26.8 L (35.5-45.6) % POC ABG pCO2 (32.0-48.0) mmHg POC ABG pO2 (83-108) mmHg ABG Hemoglobin (12.0-17.5) ABG Sodium (136.0-145.0) mmol/L ABG Chloride (98-107) mmol/L ABG Glucose (65-95) mg/dL Sodium 136 L (137-145) mmol/L Chloride 95.0 L (98-107) mmol/L Carbon Dioxide 34 H D (22-30) mmol/L BUN 24 H (9-20) mg/dL Creatinine 0.3 L (0.8-1.3) mg/dL Glucose 260 H (75-100) mg/dL POC Glucose (70-105) mg/dL Total Protein 5.2 L (6.3-8.2) g/dL Albumin 2.6 L (3.9-5) g/dL Arterial Blood Glucose (65-95) mg/dL 06/24/20 06/24/20 Range/Units 02:45 05:31 Hgb (11.8-15.2) gm/dl Hct (35.5-45.6) % POC ABG pCO2 66.9 H (32.0-48.0) mmHg POC ABG pO2 109.7 H (83-108) mmHg ABG Hemoglobin 9.7 L (12.0-17.5) ABG Sodium 135.0 L (136.0-145.0) mmol/L ABG Chloride 97.0 L (98-107) mmol/L ABG Glucose 277 H (65-95) mg/dL Sodium (137-145) mmol/L Chloride (98-107) mmol/L Carbon Dioxide (22-30) mmol/L BUN (9-20) mg/dL Creatinine (0.8-1.3) mg/dL Glucose (75-100) mg/dL POC Glucose 164 H (70-105) mg/dL Total Protein (6.3-8.2) g/dL Albumin (3.9-5) g/dL Arterial Blood Glucose 277 H (65-95) mg/dL Medications & Allergies - Medications Allergies/Adverse Reactions: Allergies No Known Allergies Allergy (Unverified 05/09/20 14:23) Home Medications: Home Medications Medication Instructions Recorded Confirmed Last Taken Type No Known Home Medications [No 05/09/20 05/09/20 Unknown History Reported Home Medications] Active Medications: Generic Name Dose Route Start Last Admin Trade Name Freq PRN Reason Stop Dose Admin Acetaminophen 650 mg 06/14/20 10:07 06/21/20 20:21 Tylenol FEEDTUBE 650 mg Q4H PRN Administration Pain, Mild (1-3) Alprazolam 0.25 mg 05/20/20 17:53 06/24/20 06:35 Alprazolam 0.25 Mg Tab PO 0.25 mg Q8H PRN Administration Anxiety Lipase/Protease/Amylase 1 each 05/22/20 13:01 Lipase 10,500/Protease 25,000/Amylase 43,750 (Units) Dr Newell FEEDTUBE PRN PRN For Clogged Feeding Tube Bisacodyl 10 mg 06/07/20 10:00 06/24/20 10:22 Dulcolax CO Not Given QDAY DESIRE Docusate Sodium 100 mg 05/28/20 14:00 06/24/20 09:47 Colace PO 100 mg BID DESIRE Administration Fentanyl 50 mcg 06/22/20 09:48 Fentanyl 100 Mcg/2 Ml Inj IV Q10MIN PRN ANALGESIA Folic Acid 1 mg 05/09/20 15:36 06/24/20 09:47 Folvite PO 1 mg QDAY DESIRE Administration Heparin Sodium (Porcine) 4,300 unit 06/22/20 12:48 Heparin 10,000 Units/10 Ml Vial 40 unit/kg (4300 unit) IV Q6H PRN Anti-Xa Assay < 0.1 units/ml Hydrophilic Ointment 1 applic 05/21/20 20:33 Lip Therapy Vaseline TP Q2HR PRN Dry Lips Midazolam HCl 100 mg/ Sodium 100 mls @ 2 mls/hr 06/02/20 14:00 06/24/20 08:43 Chloride IV 5 mg/hr TITR DESIRE 5 mls/hr Administration Protocol 2 MG/HR Norepinephrine 4 mg in 250 mls @ 7.5 mls/hr 06/04/20 16:00 06/24/20 03:43 Levophed Drip 4 Mg/Ns 250 Ml IV 6 mcg/min TITR DESIRE 22.5 mls/hr Administration Protocol 2 MCG/MIN Propofol 500 mg in 50 mls @ 3.309 mls/hr 06/08/20 11:00 06/24/20 07:56 Propofol IV 10 mcg/kg/min TITR DESIRE 6.618 mls/hr Administration Protocol 5 MCG/KG/MIN Fentanyl Citrate 2,000 mcg in 100 mls @ 5.32 mls/hr 06/09/20 14:00 06/24/20 07:44 Fentanyl Drip Premix IV 4 mcg/kg/hr TITR DESIRE 21.28 mls/hr Administration Protocol 1 MCG/KG/HR Vasopressin 20 unit/ Sodium 101 mls @ 9.09 mls/hr 06/09/20 18:00 Chloride IV TITR DESIRE Protocol 0.03 UNITS/MIN Heparin Sodium/Sodium Chloride 25,000 unit in 500 mls @ 30 mls/hr 06/22/20 13:00 06/24/20 02:47 Heparin/ 0.45% Nacl-25,000 Unit/500 Ml IV 1,500 units/hr TITR DESIRE 30 mls/hr Administration Protocol 1,500 UNITS/HR Insulin Glargine 20 units 06/18/20 22:00 06/23/20 21:32 Insulin Glargine 100 Units/Ml SUB-Q 20 units QHS [facility] Administration Insulin Human Lispro 0 unit 05/29/20 14:00 06/24/20 06:35 Humalog SUB-Q 3 unit Q6H [facility] Administration Protocol Methylprednisolone Sodium Succinate 40 mg 05/20/20 18:00 06/24/20 06:35 Methylprednisolone Sod Succinate 40 Mg/1 Ml Inj IV 40 mg Q12H [facility] Administration Multi-Ingred Cream/Lotion/Oil/Oint 1 applic 05/21/20 20:33 Mineral Oil/Petrolatum, White Ophth Oint 3.5 Gm OU Q4HR PRN Dry Eye(s) Pantoprazole Sodium 40 mg 06/23/20 10:00 06/24/20 09:47 Pantoprazole 40 Mg Inj IV 40 mg QDAY DESIRE Administration Phenobarbital 20 mg 06/18/20 14:00 06/24/20 06:35 Phenobarbital 20 Mg/5 Ml Oral Liqd FEEDTUBE 20 mg Q8HR DESIRE Administration Polyethylene Glycol 17 gm 05/28/20 22:00 06/23/20 21:32 Miralax 3350 PO 17 gm QHS DESIRE Administration Quetiapine Fumarate 300 mg 06/10/20 22:00 06/24/20 09:47 Seroquel PO 300 mg BID DESIRE Administration Senna 17.2 mg 06/07/20 10:00 06/24/20 09:47 Senokot PO 17.2 mg BID DESIRE Administration Simethicone 160 mg 06/22/20 13:00 06/24/20 07:46 Simethicone 80 Mg Chew Tab PO 06/27/20 07:01 160 mg Q6H [facility]IRE Administration Simple Syrup 15 ml 05/22/20 13:01 Simple Syrup 15 Ml FEEDTUBE PRN PRN Hypoglycemia Simple Syrup 30 ml 05/22/20 13:01 Simple Syrup 15 Ml FEEDTUBE PRN PRN Hypoglycemia Sodium Bicarbonate 325 mg 05/22/20 13:01 Sodium Bicarbonate 325 Mg Tab FEEDTUBE PRN PRN For Clogged Feeding Tube Sodium Chloride 10 ml 05/09/20 22:00 06/24/20 09:47 Sodium Chloride Flush Syringe 10 Ml IV 10 ml BID DESIRE Administration
--- NOTE | 2020-06-24 13:07 | Progress Note ---
Assessment and Plan Acute hypoxemic respiratory failure due to COVID-19 Severe Sepsis Bilateral pneumonia Acute kidney injury (SEN) with acute tubular necrosis (ATN) Alcohol dependence Elevated liver function tests - keep peep at 12 - continue bid protonix - continue full anticoagulation for now and trend H&H - continue care as below otherwise; - continue bowel regimen - continue to wean supplemental oxygen for target O2 sat's > 92% acutely - continue to wean Levophed for target MAP > 65 mmHg (2 mics/min) - tracheostomy placement once oxygenation better / more hemodynamically stable - he will need a tracheostomy once numbers better - continue Daily SAT and SBT assessment as tolerated - VAP bundle addressed - continue lung protective strategies - continue bronchodilators with pulmonary hygiene per RT - wean per pulmonary driven protocols otherwise - accuchecks with glycemic control per SSI (While critically ill target blood glucose of 140-180 mg/dL; avoid hypoglycemia) - sedation prn for target RASS -1 to -2 - continue enteral nutritional support at goal rate as tolerated - continue airborne and contact isolation - follow repeat COVID-19 testing - continue Zinc & Vit C supplementaion - continue systemic steroids for Asthma / severe COVID infection - Prone positioning as tolerated - continue empiric full dose anticoagulation re: elevated d-dimers / hypercoagulable state - NOT a candidate for COVID convalescent plasma - continue systemic steroids X >/= 10 days - completed remdesivir dosing (total 5 days) - empiric AB's coverage per ID rec's - accuchecks with glycemic control per SSI (While critically ill target blood glucose of 140-180 mg/dL; avoid hypoglycemia) - avoid nephrotoxins, renally dose all medications - continue to avoid benzodiazepine's, reduce the possibility of delirium - continue wound care per RN / WCN - prn analgesia per CPOT score - Maintenance of sleep-wake cycle, avoid delirium - continue to avoid benzodiazepine's, reduce the possibility of delirium - aspiration precautions - G.I. & VTE prophylaxis - PT/OT/ROM exercises - continue mobility protocols for pressure ulcer prophylaxis - Monitor hemodynamics closely - continue other care per attending / other consultants - discharge planning ongoing concurrently .... Re-evaluate in am & prn CONDITION: CRITICAL PROGNOSIS: GUARDED CODE STATUS: FULL CODE The high probability of a clinically significant, sudden or life-threatening deterioration of the [respiratory, cardiovascular, hematologic & neurologic] system(s) required my full and direct attention, intervention and personal management. The aggregate critical care time was [32] minutes without overlap. Time includes spent on; [x] Data Review and interpretation [x] Patient assessment and monitoring of vital signs [x] Documentation [x] Medication orders and management Subjective Date of service: 06/24/20 Principal diagnosis: Ac hypoxemic resp failure; COVID-19; Severe Sepsis; Shaggy PNA; Alcohol Abuse Interval history: Patient is seen today for: Acute hypoxemic respiratory failure due to COVID-19; Severe Sepsis; Bilateral pneumonia; Alcohol dependence; Elevated liver function tests Seen and examined at bedside; 24hour events reviewed; nursing and respiratory care staff consulted; no adverse overnight events reported to me; resting in bed; remains on MVS; seen by GI and cleared for enteral nutrition; oxygenation slowly improving; no emesis or overt aspiration; afebrile Objective Vital Signs - 12hr 06/24/20 06/24/20 06/24/20 01:15 01:30 01:45 Temperature Pulse Rate 101 H 99 H 96 H Pulse Rate [ From Monitor] Respiratory 30 H 30 H 30 H Rate Blood Pressure 100/59 90/55 87/60 O2 Sat by Pulse 97 99 Oximetry 06/24/20 06/24/20 06/24/20 02:00 02:15 02:30 Temperature Pulse Rate 98 H 96 H 95 H Pulse Rate [ From Monitor] Respiratory 30 H 30 H 30 H Rate Blood Pressure 91/62 92/63 89/58 O2 Sat by Pulse 97 98 98 Oximetry 06/24/20 06/24/20 06/24/20 02:45 03:00 03:15 Temperature Pulse Rate 89 92 H 90 Pulse Rate [ From Monitor] Respiratory 23 30 H 30 H Rate Blood Pressure 98/62 94/56 94/55 O2 Sat by Pulse 100 97 96 Oximetry 06/24/20 06/24/20 06/24/20 03:26 03:30 03:45 Temperature Pulse Rate 68 90 87 Pulse Rate [ From Monitor] Respiratory 30 H 30 H Rate Blood Pressure 94/55 87/57 92/58 O2 Sat by Pulse 98 97 97 Oximetry 06/24/20 06/24/20 06/24/20 03:57 04:00 04:15 Temperature 98.4 F Pulse Rate 91 H 90 Pulse Rate [ 90 From Monitor] Respiratory 30 H 30 H Rate Blood Pressure 94/64 95/62 O2 Sat by Pulse 97 97 Oximetry 06/24/20 06/24/20 06/24/20 04:30 04:45 05:00 Temperature Pulse Rate 89 86 87 Pulse Rate [ From Monitor] Respiratory 30 H 30 H 30 H Rate Blood Pressure 95/60 97/61 95/60 O2 Sat by Pulse 98 100 99 Oximetry 06/24/20 06/24/20 06/24/20 05:16 05:30 05:46 Temperature Pulse Rate 100 H 104 H 107 H Pulse Rate [ From Monitor] Respiratory 25 H 22 31 H Rate Blood Pressure 112/71 112/71 133/84 O2 Sat by Pulse 96 95 87 Oximetry 06/24/20 06/24/20 06/24/20 06:00 06:15 06:30 Temperature Pulse Rate 102 H 112 H 130 H Pulse Rate [ From Monitor] Respiratory 31 H 19 25 H Rate Blood Pressure 133/84 156/116 156/116 O2 Sat by Pulse 87 83 L 80 L Oximetry 06/24/20 06/24/20 06/24/20 06:45 07:00 07:15 Temperature Pulse Rate 97 H 116 H 108 H Pulse Rate [ From Monitor] Respiratory 30 H 25 H 31 H Rate Blood Pressure 142/63 169/94 167/97 O2 Sat by Pulse 92 99 84 Oximetry 06/24/20 06/24/20 06/24/20 07:30 07:46 08:00 Temperature 98.9 F Pulse Rate 122 H 133 H 122 H Pulse Rate [ 119 H From Monitor] Respiratory 34 H 23 25 H Rate Blood Pressure 142/96 106/85 106/85 O2 Sat by Pulse 88 95 90 Oximetry 06/24/20 06/24/20 06/24/20 08:16 08:30 08:46 Temperature Pulse Rate 129 H 125 H 132 H Pulse Rate [ From Monitor] Respiratory 18 22 24 Rate Blood Pressure 106/85 106/85 106/85 O2 Sat by Pulse 89 91 92 Oximetry 06/24/20 06/24/20 06/24/20 09:00 09:08 09:16 Temperature Pulse Rate 116 H 116 H 119 H Pulse Rate [ From Monitor] Respiratory 20 29 H Rate Blood Pressure 106/85 106/85 O2 Sat by Pulse 95 99 100 Oximetry 06/24/20 06/24/20 06/24/20 09:30 09:46 10:00 Temperature Pulse Rate 120 H 114 H 118 H Pulse Rate [ From Monitor] Respiratory 28 H 26 H 19 Rate Blood Pressure 106/85 106/85 104/57 O2 Sat by Pulse 96 92 98 Oximetry 06/24/20 06/24/20 06/24/20 10:15 10:30 10:45 Temperature Pulse Rate 119 H 112 H 113 H Pulse Rate [ From Monitor] Respiratory 20 30 H 30 H Rate Blood Pressure 101/58 98/65 101/65 O2 Sat by Pulse 97 96 94 Oximetry 06/24/20 06/24/20 06/24/20 11:00 11:15 11:30 Temperature Pulse Rate 119 H 120 H 122 H Pulse Rate [ From Monitor] Respiratory 20 28 H 23 Rate Blood Pressure 110/61 102/70 107/72 O2 Sat by Pulse 95 94 97 Oximetry 06/24/20 06/24/20 06/24/20 11:45 12:00 12:12 Temperature Pulse Rate 114 H 111 H 112 H Pulse Rate [ 110 H From Monitor] Respiratory 18 22 Rate Blood Pressure 103/59 108/65 O2 Sat by Pulse 95 97 97 Oximetry 06/24/20 12:15 Temperature Pulse Rate 111 H Pulse Rate [ From Monitor] Respiratory 20 Rate Blood Pressure 116/68 O2 Sat by Pulse 97 Oximetry Constitutional: appears uncomfortable, other (middle aged obese male with mildly increased respiratory effort at rest on MVS) Eyes: non-icteric ENT: oropharynx moist, other (ETT 24 cm CHILO) Neck: supple, no JVD Effort: mildly labored Ascultation: Bilateral: diminished breath sounds, rhonchi (scant), other (right chest tube) Percussion: Bilateral: not dull Cardiovascular: regular rate and rhythm, other (No R/M) Gastrointestinal: normoactive bowel sounds, soft, non-tender, other (distended and firm) Integumentary: normal Extremities: no cyanosis, no edema, pulses normal, no ischemia or petechiae Neurologic: pupils equal and round, CN II-XII normal, other (unable top assess re: AMS) Psychiatric: other (sedated) CBC and BMP: 06/29/20 04:00 06/29/20 04:00 ABG, PT/INR, D-dimer: ABG ABG pH 7.359 (7.320-7.450) 06/24/20 02:45 POC ABG pCO2 66.9 mmHg (32.0-48.0) H 06/24/20 02:45 ABG pCO2 69.8 mm Hg 06/22/20 03:50 POC ABG pO2 109.7 mmHg (83-108) H 06/24/20 02:45 ABG pO2 89.6 mm Hg (80.0-90.0) 06/22/20 03:50 POC ABG HCO3 36.9 06/24/20 02:45 ABG O2 Saturation 97.1 % (95.0-99.0) 06/22/20 03:50 PT/INR, D-dimer PT 11.8 Sec. (12.2-14.9) L 06/22/20 14:29 INR 0.88 (0.87-1.13) 06/22/20 14:29 D-Dimer 1887.82 ng/mlDDU (0-234) H 05/20/20 08:16 Abnormal lab findings: Abnormal Labs 05/09/20 05/09/20 05/09/20 12:59 12:59 12:59 WBC 11.8 H RBC Hgb Hct MCV 96 H MCH 34 H MCHC 35 H RDW Lymph % (Auto) 6.9 L Lymph # (Auto) 0.8 L Seg Neutrophils % 87.5 H Seg Neuts % (Manual) Lymphocytes % (Manual) Nucleated RBC % Seg Neutrophils # 10.3 H Seg Neutrophils # Man Lymphocytes # (Manual) Monocytes # (Manual) PT INR APTT D-Dimer ABG pH POC ABG pCO2 POC ABG pO2 ABG pO2 ABG HCO3 ABG O2 Saturation ABG Base Excess ABG Hemoglobin ABG Oxyhemoglobin ABG Sodium ABG Potassium ABG Chloride ABG Glucose Oxyhemoglobin Sodium 130 L Potassium 3.5 L Chloride 86.4 L Carbon Dioxide BUN 33 H Creatinine 2.3 H Glucose 156 H POC Glucose Lactic Acid Calcium Magnesium Ferritin Total Bilirubin 3.40 H Direct Bilirubin 1.7 H AST 385 H ALT 134 H Alkaline Phosphatase Lactate Dehydrogenase C-Reactive Protein Total Protein Albumin 3.0 L Triglycerides Arterial Blood Glucose Arterial Blood Ionized Calcium Urine WBC (Auto) Coronavirus (PCR) SARS-CoV-2 IgG Ab Crossmatch 05/09/20 05/09/20 05/09/20 12:59 12:59 12:59 WBC RBC Hgb Hct MCV MCH MCHC RDW Lymph % (Auto) Lymph # (Auto) Seg Neutrophils % Seg Neuts % (Manual) Lymphocytes % (Manual) Nucleated RBC % Seg Neutrophils # Seg Neutrophils # Man Lymphocytes # (Manual) Monocytes # (Manual) PT INR APTT D-Dimer 3242.51 H ABG pH POC ABG pCO2 POC ABG pO2 ABG pO2 ABG HCO3 ABG O2 Saturation ABG Base Excess ABG Hemoglobin ABG Oxyhemoglobin ABG Sodium ABG Potassium ABG Chloride ABG Glucose Oxyhemoglobin Sodium Potassium Chloride Carbon Dioxide BUN Creatinine Glucose 158 H POC Glucose Lactic Acid 3.50 H* Calcium Magnesium Ferritin Total Bilirubin Direct Bilirubin AST ALT Alkaline Phosphatase Lactate Dehydrogenase 2166 H C-Reactive Protein 39.00 H Total Protein Albumin Triglycerides Arterial Blood Glucose Arterial Blood Ionized Calcium Urine WBC (Auto) Coronavirus (PCR) SARS-CoV-2 IgG Ab Crossmatch 05/09/20 05/09/20 05/09/20 12:59 14:20 14:20 WBC RBC Hgb Hct MCV MCH MCHC RDW Lymph % (Auto) Lymph # (Auto) Seg Neutrophils % Seg Neuts % (Manual) Lymphocytes % (Manual) Nucleated RBC % Seg Neutrophils # Seg Neutrophils # Man Lymphocytes # (Manual) Monocytes # (Manual) PT INR APTT D-Dimer 2861.78 H ABG pH POC ABG pCO2 POC ABG pO2 ABG pO2 ABG HCO3 ABG O2 Saturation ABG Base Excess ABG Hemoglobin ABG Oxyhemoglobin ABG Sodium ABG Potassium ABG Chloride ABG Glucose Oxyhemoglobin Sodium Potassium Chloride Carbon Dioxide BUN Creatinine Glucose POC Glucose Lactic Acid 2.20 H* Calcium Magnesium Ferritin 73539.0 H Total Bilirubin Direct Bilirubin AST ALT Alkaline Phosphatase Lactate Dehydrogenase C-Reactive Protein Total Protein Albumin Triglycerides Arterial Blood Glucose Arterial Blood Ionized Calcium Urine WBC (Auto) Coronavirus (PCR) SARS-CoV-2 IgG Ab Crossmatch 05/09/20 05/09/20 05/09/20 14:20 14:20 15:56 WBC RBC Hgb Hct MCV MCH MCHC RDW Lymph % (Auto) Lymph # (Auto) Seg Neutrophils % Seg Neuts % (Manual) Lymphocytes % (Manual) Nucleated RBC % Seg Neutrophils # Seg Neutrophils # Man Lymphocytes # (Manual) Monocytes # (Manual) PT INR APTT D-Dimer ABG pH POC ABG pCO2 POC ABG pO2 57.3 L ABG pO2 ABG HCO3 ABG O2 Saturation ABG Base Excess ABG Hemoglobin ABG Oxyhemoglobin 86.3 L ABG Sodium 129.9 L ABG Potassium ABG Chloride ABG Glucose 146 H Oxyhemoglobin Sodium Potassium Chloride Carbon Dioxide BUN Creatinine Glucose 143 H POC Glucose Lactic Acid Calcium Magnesium Ferritin 53187.0 H Total Bilirubin Direct Bilirubin AST ALT Alkaline Phosphatase Lactate Dehydrogenase 1953 H C-Reactive Protein 33.50 H Total Protein Albumin Triglycerides Arterial Blood Glucose 146 H Arterial Blood Ionized Calcium 3.9 L Urine WBC (Auto) Coronavirus (PCR) SARS-CoV-2 IgG Ab Crossmatch 05/10/20 05/10/20 05/10/20 10:32 10:32 18:50 WBC 15.4 H RBC Hgb Hct MCV 97 H MCH 33 H MCHC RDW 13.1 L Lymph % (Auto) Lymph # (Auto) Seg Neutrophils % Seg Neuts % (Manual) 89.0 H Lymphocytes % (Manual) 8.0 L Nucleated RBC % Seg Neutrophils # Seg Neutrophils # Man 13.7 H Lymphocytes # (Manual) Monocytes # (Manual) PT INR APTT D-Dimer ABG pH POC ABG pCO2 POC ABG pO2 ABG pO2 ABG HCO3 ABG O2 Saturation ABG Base Excess ABG Hemoglobin ABG Oxyhemoglobin ABG Sodium ABG Potassium ABG Chloride ABG Glucose Oxyhemoglobin Sodium 136 L Potassium Chloride 97.4 L Carbon Dioxide BUN 37 H Creatinine 1.7 H Glucose 209 H POC Glucose Lactic Acid Calcium Magnesium Ferritin > 2000.0 H Total Bilirubin Direct Bilirubin AST ALT Alkaline Phosphatase Lactate Dehydrogenase C-Reactive Protein Total Protein Albumin Triglycerides Arterial Blood Glucose Arterial Blood Ionized Calcium Urine WBC (Auto) Coronavirus (PCR) SARS-CoV-2 IgG Ab Crossmatch 05/10/20 05/10/20 05/10/20 18:50 19:00 Unknown WBC RBC Hgb Hct MCV MCH MCHC RDW Lymph % (Auto) Lymph # (Auto) Seg Neutrophils % Seg Neuts % (Manual) Lymphocytes % (Manual) Nucleated RBC % Seg Neutrophils # Seg Neutrophils # Man Lymphocytes # (Manual) Monocytes # (Manual) PT INR APTT D-Dimer > 28833 H ABG pH POC ABG pCO2 POC ABG pO2 ABG pO2 ABG HCO3 ABG O2 Saturation ABG Base Excess ABG Hemoglobin ABG Oxyhemoglobin ABG Sodium ABG Potassium ABG Chloride ABG Glucose Oxyhemoglobin Sodium Potassium Chloride Carbon Dioxide BUN Creatinine Glucose POC Glucose Lactic Acid Calcium Magnesium Ferritin Total Bilirubin Direct Bilirubin AST ALT Alkaline Phosphatase Lactate Dehydrogenase 1879 H C-Reactive Protein 24.80 H Total Protein Albumin Triglycerides Arterial Blood Glucose Arterial Blood Ionized Calcium Urine WBC (Auto) 11.0 H Coronavirus (PCR) SARS-CoV-2 IgG Ab Crossmatch 05/10/20 05/11/20 05/11/20 Unknown 07:30 07:30 WBC RBC Hgb Hct MCV MCH MCHC RDW Lymph % (Auto) Lymph # (Auto) Seg Neutrophils % Seg Neuts % (Manual) Lymphocytes % (Manual) Nucleated RBC % Seg Neutrophils # Seg Neutrophils # Man Lymphocytes # (Manual) Monocytes # (Manual) PT INR APTT D-Dimer > 2000 H ABG pH POC ABG pCO2 POC ABG pO2 ABG pO2 ABG HCO3 ABG O2 Saturation ABG Base Excess ABG Hemoglobin ABG Oxyhemoglobin ABG Sodium ABG Potassium ABG Chloride ABG Glucose Oxyhemoglobin Sodium Potassium Chloride 96.3 L Carbon Dioxide BUN 36 H Creatinine Glucose 161 H POC Glucose Lactic Acid Calcium 8.3 L Magnesium Ferritin Total Bilirubin 1.50 H Direct Bilirubin 0.6 H AST 178 H ALT 111 H Alkaline Phosphatase Lactate Dehydrogenase C-Reactive Protein Total Protein Albumin 3.0 L Triglycerides Arterial Blood Glucose Arterial Blood Ionized Calcium Urine WBC (Auto) Coronavirus (PCR) Positive A SARS-CoV-2 IgG Ab Crossmatch 05/11/20 05/11/20 05/11/20 07:30 07:30 07:30 WBC RBC Hgb Hct MCV MCH MCHC RDW Lymph % (Auto) Lymph # (Auto) Seg Neutrophils % Seg Neuts % (Manual) Lymphocytes % (Manual) Nucleated RBC % Seg Neutrophils # Seg Neutrophils # Man Lymphocytes # (Manual) Monocytes # (Manual) PT INR APTT D-Dimer ABG pH POC ABG pCO2 POC ABG pO2 ABG pO2 ABG HCO3 ABG O2 Saturation ABG Base Excess ABG Hemoglobin ABG Oxyhemoglobin ABG Sodium ABG Potassium ABG Chloride ABG Glucose Oxyhemoglobin Sodium Potassium Chloride Carbon Dioxide BUN Creatinine Glucose POC Glucose Lactic Acid Calcium Magnesium Ferritin 89889.0 H Total Bilirubin Direct Bilirubin AST ALT Alkaline Phosphatase Lactate Dehydrogenase 1523 H C-Reactive Protein 12.90 H Total Protein Albumin Triglycerides Arterial Blood Glucose Arterial Blood Ionized Calcium Urine WBC (Auto) Coronavirus (PCR) SARS-CoV-2 IgG Ab Reactive A Crossmatch 05/13/20 05/13/20 05/15/20 05:20 05:20 08:15 WBC RBC Hgb Hct MCV MCH MCHC RDW Lymph % (Auto) Lymph # (Auto) Seg Neutrophils % Seg Neuts % (Manual) Lymphocytes % (Manual) Nucleated RBC % Seg Neutrophils # Seg Neutrophils # Man Lymphocytes # (Manual) Monocytes # (Manual) PT INR APTT D-Dimer > 90556 H 5318.28 H ABG pH POC ABG pCO2 POC ABG pO2 ABG pO2 ABG HCO3 ABG O2 Saturation ABG Base Excess ABG Hemoglobin ABG Oxyhemoglobin ABG Sodium ABG Potassium ABG Chloride ABG Glucose Oxyhemoglobin Sodium Potassium Chloride Carbon Dioxide 32 H BUN 30 H Creatinine Glucose 156 H POC Glucose Lactic Acid Calcium Magnesium 2.60 H Ferritin Total Bilirubin 1.40 H Direct Bilirubin AST 121 H ALT 119 H Alkaline Phosphatase Lactate Dehydrogenase 957 H C-Reactive Protein 4.00 H Total Protein Albumin 3.0 L Triglycerides Arterial Blood Glucose Arterial Blood Ionized Calcium Urine WBC (Auto) Coronavirus (PCR) SARS-CoV-2 IgG Ab Crossmatch 05/15/20 05/15/20 05/15/20 08:15 08:15 08:15 WBC 12.4 H RBC Hgb Hct MCV 98 H MCH 33 H MCHC RDW Lymph % (Auto) 9.7 L Lymph # (Auto) Seg Neutrophils % 86.8 H Seg Neuts % (Manual) Lymphocytes % (Manual) Nucleated RBC % Seg Neutrophils # 10.8 H Seg Neutrophils # Man Lymphocytes # (Manual) Monocytes # (Manual) PT INR APTT D-Dimer ABG pH POC ABG pCO2 POC ABG pO2 ABG pO2 ABG HCO3 ABG O2 Saturation ABG Base Excess ABG Hemoglobin ABG Oxyhemoglobin ABG Sodium ABG Potassium ABG Chloride ABG Glucose Oxyhemoglobin Sodium Potassium Chloride 94.8 L Carbon Dioxide 32 H BUN 22 H Creatinine Glucose 115 H POC Glucose Lactic Acid Calcium 8.3 L Magnesium Ferritin 2494.0 H Total Bilirubin Direct Bilirubin AST 73 H ALT 121 H Alkaline Phosphatase Lactate Dehydrogenase 835 H C-Reactive Protein 3.40 H Total Protein 6.1 L Albumin 3.0 L Triglycerides Arterial Blood Glucose Arterial Blood Ionized Calcium Urine WBC (Auto) Coronavirus (PCR) SARS-CoV-2 IgG Ab Crossmatch 05/17/20 05/17/20 05/17/20 05:50 05:50 05:50 WBC RBC Hgb Hct MCV MCH MCHC RDW Lymph % (Auto) Lymph # (Auto) Seg Neutrophils % Seg Neuts % (Manual) Lymphocytes % (Manual) Nucleated RBC % Seg Neutrophils # Seg Neutrophils # Man Lymphocytes # (Manual) Monocytes # (Manual) PT INR APTT D-Dimer 2911.42 H ABG pH POC ABG pCO2 POC ABG pO2 ABG pO2 ABG HCO3 ABG O2 Saturation ABG Base Excess ABG Hemoglobin ABG Oxyhemoglobin ABG Sodium ABG Potassium ABG Chloride ABG Glucose Oxyhemoglobin Sodium 136 L Potassium Chloride 96.0 L Carbon Dioxide 34 H BUN 22 H Creatinine Glucose 140 H POC Glucose Lactic Acid Calcium Magnesium Ferritin 2082.0 H Total Bilirubin Direct Bilirubin AST ALT 75 H Alkaline Phosphatase Lactate Dehydrogenase 601 H C-Reactive Protein 2.70 H Total Protein Albumin 2.9 L Triglycerides Arterial Blood Glucose Arterial Blood Ionized Calcium Urine WBC (Auto) Coronavirus (PCR) SARS-CoV-2 IgG Ab Crossmatch 05/17/20 05/18/20 05/20/20 05:50 12:22 08:16 WBC RBC Hgb Hct MCV 98 H MCH 33 H MCHC RDW Lymph % (Auto) 8.0 L Lymph # (Auto) 0.8 L Seg Neutrophils % 89.3 H Seg Neuts % (Manual) Lymphocytes % (Manual) Nucleated RBC % Seg Neutrophils # 8.8 H Seg Neutrophils # Man Lymphocytes # (Manual) Monocytes # (Manual) PT INR APTT D-Dimer 1887.82 H ABG pH POC ABG pCO2 POC ABG pO2 ABG pO2 ABG HCO3 ABG O2 Saturation ABG Base Excess ABG Hemoglobin ABG Oxyhemoglobin ABG Sodium ABG Potassium ABG Chloride ABG Glucose Oxyhemoglobin Sodium Potassium Chloride Carbon Dioxide BUN Creatinine Glucose POC Glucose 178 H Lactic Acid Calcium Magnesium Ferritin Total Bilirubin Direct Bilirubin AST ALT Alkaline Phosphatase Lactate Dehydrogenase C-Reactive Protein Total Protein Albumin Triglycerides Arterial Blood Glucose Arterial Blood Ionized Calcium Urine WBC (Auto) Coronavirus (PCR) SARS-CoV-2 IgG Ab Crossmatch 05/20/20 05/20/20 05/21/20 08:16 08:16 21:10 WBC RBC Hgb Hct MCV MCH MCHC RDW Lymph % (Auto) Lymph # (Auto) Seg Neutrophils % Seg Neuts % (Manual) Lymphocytes % (Manual) Nucleated RBC % Seg Neutrophils # Seg Neutrophils # Man Lymphocytes # (Manual) Monocytes # (Manual) PT INR APTT D-Dimer ABG pH 7.483 H POC ABG pCO2 POC ABG pO2 ABG pO2 50.0 L ABG HCO3 27.0 H ABG O2 Saturation 86.2 L ABG Base Excess 3.7 H ABG Hemoglobin ABG Oxyhemoglobin ABG Sodium ABG Potassium ABG Chloride ABG Glucose Oxyhemoglobin 84.2 L Sodium Potassium Chloride Carbon Dioxide BUN Creatinine Glucose POC Glucose Lactic Acid Calcium Magnesium Ferritin 1960.0 H Total Bilirubin Direct Bilirubin AST ALT Alkaline Phosphatase Lactate Dehydrogenase 705 H C-Reactive Protein 3.10 H Total Protein Albumin Triglycerides Arterial Blood Glucose Arterial Blood Ionized Calcium Urine WBC (Auto) Coronavirus (PCR) SARS-CoV-2 IgG Ab Crossmatch 05/22/20 05/22/20 05/22/20 04:01 07:53 07:53 WBC 19.2 H RBC Hgb Hct MCV 98 H MCH 34 H MCHC RDW Lymph % (Auto) Lymph # (Auto) Seg Neutrophils % Seg Neuts % (Manual) 96.0 H Lymphocytes % (Manual) 1.0 L Nucleated RBC % Seg Neutrophils # Seg Neutrophils # Man 18.4 H Lymphocytes # (Manual) 0.2 L Monocytes # (Manual) PT INR APTT D-Dimer ABG pH POC ABG pCO2 53.8 H POC ABG pO2 125.5 H ABG pO2 ABG HCO3 ABG O2 Saturation ABG Base Excess ABG Hemoglobin ABG Oxyhemoglobin ABG Sodium 131.8 L ABG Potassium 4.8 H ABG Chloride 94.0 L ABG Glucose 163 H Oxyhemoglobin Sodium 131 L Potassium Chloride 93.4 L Carbon Dioxide BUN 40 H Creatinine Glucose 176 H POC Glucose Lactic Acid Calcium Magnesium 2.70 H Ferritin Total Bilirubin 1.80 H Direct Bilirubin AST 45 H ALT 116 H Alkaline Phosphatase 181 H Lactate Dehydrogenase C-Reactive Protein Total Protein Albumin 2.6 L Triglycerides Arterial Blood Glucose 163 H Arterial Blood Ionized Calcium 4.5 L Urine WBC (Auto) Coronavirus (PCR) SARS-CoV-2 IgG Ab Crossmatch 05/23/20 05/24/20 05/24/20 04:17 03:07 04:08 WBC RBC Hgb Hct MCV MCH MCHC RDW Lymph % (Auto) Lymph # (Auto) Seg Neutrophils % Seg Neuts % (Manual) Lymphocytes % (Manual) Nucleated RBC % Seg Neutrophils # Seg Neutrophils # Man Lymphocytes # (Manual) Monocytes # (Manual) PT INR APTT D-Dimer ABG pH 7.328 L POC ABG pCO2 POC ABG pO2 ABG pO2 72.8 L 73.4 L ABG HCO3 31.0 H 34.0 H ABG O2 Saturation 93.5 L ABG Base Excess 3.5 H 7.7 H ABG Hemoglobin 13.3 L 12.1 L ABG Oxyhemoglobin ABG Sodium ABG Potassium ABG Chloride ABG Glucose Oxyhemoglobin 91.5 L 94.3 L Sodium Potassium Chloride Carbon Dioxide BUN Creatinine Glucose POC Glucose 155 H Lactic Acid Calcium Magnesium Ferritin Total Bilirubin Direct Bilirubin AST ALT Alkaline Phosphatase Lactate Dehydrogenase C-Reactive Protein Total Protein Albumin Triglycerides Arterial Blood Glucose Arterial Blood Ionized Calcium Urine WBC (Auto) Coronavirus (PCR) SARS-CoV-2 IgG Ab Crossmatch 05/24/20 05/24/20 05/24/20 09:33 12:21 17:52 WBC RBC Hgb Hct MCV MCH MCHC RDW Lymph % (Auto) Lymph # (Auto) Seg Neutrophils % Seg Neuts % (Manual) Lymphocytes % (Manual) Nucleated RBC % Seg Neutrophils # Seg Neutrophils # Man Lymphocytes # (Manual) Monocytes # (Manual) PT INR APTT D-Dimer ABG pH POC ABG pCO2 POC ABG pO2 ABG pO2 ABG HCO3 ABG O2 Saturation ABG Base Excess ABG Hemoglobin ABG Oxyhemoglobin ABG Sodium ABG Potassium ABG Chloride ABG Glucose Oxyhemoglobin Sodium Potassium Chloride Carbon Dioxide 34 H D BUN 28 H Creatinine 0.7 L Glucose 168 H POC Glucose 173 H 164 H Lactic Acid Calcium Magnesium Ferritin Total Bilirubin Direct Bilirubin AST ALT Alkaline Phosphatase Lactate Dehydrogenase C-Reactive Protein Total Protein Albumin Triglycerides Arterial Blood Glucose Arterial Blood Ionized Calcium Urine WBC (Auto) Coronavirus (PCR) SARS-CoV-2 IgG Ab Crossmatch 05/24/20 05/25/20 05/25/20 23:47 04:29 05:46 WBC RBC Hgb Hct MCV MCH MCHC RDW Lymph % (Auto) Lymph # (Auto) Seg Neutrophils % Seg Neuts % (Manual) Lymphocytes % (Manual) Nucleated RBC % Seg Neutrophils # Seg Neutrophils # Man Lymphocytes # (Manual) Monocytes # (Manual) PT INR APTT D-Dimer ABG pH POC ABG pCO2 68.6 H POC ABG pO2 ABG pO2 ABG HCO3 ABG O2 Saturation ABG Base Excess ABG Hemoglobin ABG Oxyhemoglobin ABG Sodium ABG Potassium 4.7 H ABG Chloride ABG Glucose 226 H Oxyhemoglobin Sodium Potassium Chloride Carbon Dioxide BUN Creatinine Glucose POC Glucose 171 H 201 H Lactic Acid Calcium Magnesium Ferritin Total Bilirubin Direct Bilirubin AST ALT Alkaline Phosphatase Lactate Dehydrogenase C-Reactive Protein Total Protein Albumin Triglycerides Arterial Blood Glucose 226 H Arterial Blood Ionized Calcium Urine WBC (Auto) Coronavirus (PCR) SARS-CoV-2 IgG Ab Crossmatch 05/25/20 05/25/20 05/25/20 08:37 08:37 12:38 WBC 12.0 H RBC 3.64 L Hgb Hct MCV 99 H MCH 33 H MCHC RDW Lymph % (Auto) Lymph # (Auto) Seg Neutrophils % Seg Neuts % (Manual) Lymphocytes % (Manual) Nucleated RBC % Seg Neutrophils # Seg Neutrophils # Man Lymphocytes # (Manual) Monocytes # (Manual) PT INR APTT D-Dimer ABG pH POC ABG pCO2 POC ABG pO2 ABG pO2 ABG HCO3 ABG O2 Saturation ABG Base Excess ABG Hemoglobin ABG Oxyhemoglobin ABG Sodium ABG Potassium ABG Chloride ABG Glucose Oxyhemoglobin Sodium Potassium Chloride 97.3 L Carbon Dioxide 35 H BUN 25 H Creatinine 0.7 L Glucose 191 H POC Glucose 182 H Lactic Acid Calcium Magnesium Ferritin Total Bilirubin Direct Bilirubin AST ALT Alkaline Phosphatase Lactate Dehydrogenase C-Reactive Protein Total Protein Albumin Triglycerides Arterial Blood Glucose Arterial Blood Ionized Calcium Urine WBC (Auto) Coronavirus (PCR) SARS-CoV-2 IgG Ab Crossmatch 05/25/20 05/26/20 05/26/20 18:16 00:06 04:50 WBC RBC Hgb Hct MCV MCH MCHC RDW Lymph % (Auto) Lymph # (Auto) Seg Neutrophils % Seg Neuts % (Manual) Lymphocytes % (Manual) Nucleated RBC % Seg Neutrophils # Seg Neutrophils # Man Lymphocytes # (Manual) Monocytes # (Manual) PT INR APTT D-Dimer ABG pH POC ABG pCO2 POC ABG pO2 ABG pO2 221.5 H ABG HCO3 40.4 H ABG O2 Saturation 99.3 H ABG Base Excess 12.8 H ABG Hemoglobin 10.4 L ABG Oxyhemoglobin ABG Sodium ABG Potassium ABG Chloride ABG Glucose Oxyhemoglobin Sodium Potassium Chloride Carbon Dioxide BUN Creatinine Glucose POC Glucose 176 H 152 H Lactic Acid Calcium Magnesium Ferritin Total Bilirubin Direct Bilirubin AST ALT Alkaline Phosphatase Lactate Dehydrogenase C-Reactive Protein Total Protein Albumin Triglycerides Arterial Blood Glucose Arterial Blood Ionized Calcium Urine WBC (Auto) Coronavirus (PCR) SARS-CoV-2 IgG Ab Crossmatch 05/26/20 05/26/20 05/26/20 06:11 07:51 07:51 WBC 13.4 H RBC 3.64 L Hgb Hct MCV 98 H MCH 33 H MCHC RDW Lymph % (Auto) Lymph # (Auto) Seg Neutrophils % Seg Neuts % (Manual) Lymphocytes % (Manual) Nucleated RBC % Seg Neutrophils # Seg Neutrophils # Man Lymphocytes # (Manual) Monocytes # (Manual) PT INR APTT D-Dimer ABG pH POC ABG pCO2 POC ABG pO2 ABG pO2 ABG HCO3 ABG O2 Saturation ABG Base Excess ABG Hemoglobin ABG Oxyhemoglobin ABG Sodium ABG Potassium ABG Chloride ABG Glucose Oxyhemoglobin Sodium Potassium Chloride 96.6 L Carbon Dioxide 39 H BUN 29 H Creatinine 0.7 L Glucose 174 H POC Glucose 165 H Lactic Acid Calcium Magnesium Ferritin Total Bilirubin Direct Bilirubin AST ALT Alkaline Phosphatase Lactate Dehydrogenase C-Reactive Protein Total Protein Albumin Triglycerides Arterial Blood Glucose Arterial Blood Ionized Calcium Urine WBC (Auto) Coronavirus (PCR) SARS-CoV-2 IgG Ab Crossmatch 05/26/20 05/27/20 05/27/20 23:23 03:43 05:29 WBC RBC Hgb Hct MCV MCH MCHC RDW Lymph % (Auto) Lymph # (Auto) Seg Neutrophils % Seg Neuts % (Manual) Lymphocytes % (Manual) Nucleated RBC % Seg Neutrophils # Seg Neutrophils # Man Lymphocytes # (Manual) Monocytes # (Manual) PT INR APTT D-Dimer ABG pH 7.480 H POC ABG pCO2 52.4 H POC ABG pO2 61.4 L ABG pO2 ABG HCO3 ABG O2 Saturation ABG Base Excess ABG Hemoglobin ABG Oxyhemoglobin ABG Sodium 134.9 L ABG Potassium ABG Chloride 95.0 L ABG Glucose 221 H Oxyhemoglobin Sodium Potassium Chloride Carbon Dioxide BUN Creatinine Glucose POC Glucose 169 H 227 H Lactic Acid Calcium Magnesium Ferritin Total Bilirubin Direct Bilirubin AST ALT Alkaline Phosphatase Lactate Dehydrogenase C-Reactive Protein Total Protein Albumin Triglycerides Arterial Blood Glucose 221 H Arterial Blood Ionized Calcium 4.5 L Urine WBC (Auto) Coronavirus (PCR) SARS-CoV-2 IgG Ab Crossmatch 05/27/20 05/27/20 05/27/20 07:19 12:18 13:50 WBC RBC Hgb Hct MCV MCH MCHC RDW Lymph % (Auto) Lymph # (Auto) Seg Neutrophils % Seg Neuts % (Manual) Lymphocytes % (Manual) Nucleated RBC % Seg Neutrophils # Seg Neutrophils # Man Lymphocytes # (Manual) Monocytes # (Manual) PT INR APTT D-Dimer ABG pH POC ABG pCO2 POC ABG pO2 ABG pO2 ABG HCO3 ABG O2 Saturation ABG Base Excess ABG Hemoglobin ABG Oxyhemoglobin ABG Sodium ABG Potassium ABG Chloride ABG Glucose Oxyhemoglobin Sodium Potassium Chloride Carbon Dioxide BUN Creatinine Glucose POC Glucose 114 H 148 H Lactic Acid Calcium Magnesium Ferritin Total Bilirubin Direct Bilirubin AST ALT Alkaline Phosphatase Lactate Dehydrogenase C-Reactive Protein Total Protein Albumin Triglycerides 247 H Arterial Blood Glucose Arterial Blood Ionized Calcium Urine WBC (Auto) Coronavirus (PCR) SARS-CoV-2 IgG Ab Crossmatch 05/28/20 05/28/20 05/28/20 00:13 04:16 05:22 WBC RBC Hgb Hct MCV MCH MCHC RDW Lymph % (Auto) Lymph # (Auto) Seg Neutrophils % Seg Neuts % (Manual) Lymphocytes % (Manual) Nucleated RBC % Seg Neutrophils # Seg Neutrophils # Man Lymphocytes # (Manual) Monocytes # (Manual) PT INR APTT D-Dimer ABG pH POC ABG pCO2 64.4 H POC ABG pO2 60.5 L ABG pO2 ABG HCO3 ABG O2 Saturation ABG Base Excess ABG Hemoglobin ABG Oxyhemoglobin ABG Sodium ABG Potassium ABG Chloride 95.0 L ABG Glucose 209 H Oxyhemoglobin Sodium Potassium Chloride Carbon Dioxide BUN Creatinine Glucose POC Glucose 155 H 186 H Lactic Acid Calcium Magnesium Ferritin Total Bilirubin Direct Bilirubin AST ALT Alkaline Phosphatase Lactate Dehydrogenase C-Reactive Protein Total Protein Albumin Triglycerides Arterial Blood Glucose 209 H Arterial Blood Ionized Calcium Urine WBC (Auto) Coronavirus (PCR) SARS-CoV-2 IgG Ab Crossmatch 05/28/20 05/28/20 05/29/20 12:45 17:39 00:37 WBC RBC Hgb Hct MCV MCH MCHC RDW Lymph % (Auto) Lymph # (Auto) Seg Neutrophils % Seg Neuts % (Manual) Lymphocytes % (Manual) Nucleated RBC % Seg Neutrophils # Seg Neutrophils # Man Lymphocytes # (Manual) Monocytes # (Manual) PT INR APTT D-Dimer ABG pH POC ABG pCO2 POC ABG pO2 ABG pO2 ABG HCO3 ABG O2 Saturation ABG Base Excess ABG Hemoglobin ABG Oxyhemoglobin ABG Sodium ABG Potassium ABG Chloride ABG Glucose Oxyhemoglobin Sodium Potassium Chloride Carbon Dioxide BUN Creatinine Glucose POC Glucose 143 H 164 H 221 H Lactic Acid Calcium Magnesium Ferritin Total Bilirubin Direct Bilirubin AST ALT Alkaline Phosphatase Lactate Dehydrogenase C-Reactive Protein Total Protein Albumin Triglycerides Arterial Blood Glucose Arterial Blood Ionized Calcium Urine WBC (Auto) Coronavirus (PCR) SARS-CoV-2 IgG Ab Crossmatch 05/29/20 05/29/20 05/29/20 04:15 05:33 12:34 WBC RBC Hgb Hct MCV MCH MCHC RDW Lymph % (Auto) Lymph # (Auto) Seg Neutrophils % Seg Neuts % (Manual) Lymphocytes % (Manual) Nucleated RBC % Seg Neutrophils # Seg Neutrophils # Man Lymphocytes # (Manual) Monocytes # (Manual) PT INR APTT D-Dimer ABG pH 7.463 H POC ABG pCO2 56.3 H POC ABG pO2 81.2 L ABG pO2 ABG HCO3 ABG O2 Saturation ABG Base Excess ABG Hemoglobin ABG Oxyhemoglobin ABG Sodium ABG Potassium ABG Chloride 96.0 L ABG Glucose 194 H Oxyhemoglobin Sodium Potassium Chloride Carbon Dioxide BUN Creatinine Glucose POC Glucose 133 H 221 H Lactic Acid Calcium Magnesium Ferritin Total Bilirubin Direct Bilirubin AST ALT Alkaline Phosphatase Lactate Dehydrogenase C-Reactive Protein Total Protein Albumin Triglycerides Arterial Blood Glucose 194 H Arterial Blood Ionized Calcium 4.5 L Urine WBC (Auto) Coronavirus (PCR) SARS-CoV-2 IgG Ab Crossmatch 05/29/20 05/30/20 05/30/20 18:07 00:12 05:38 WBC RBC Hgb Hct MCV MCH MCHC RDW Lymph % (Auto) Lymph # (Auto) Seg Neutrophils % Seg Neuts % (Manual) Lymphocytes % (Manual) Nucleated RBC % Seg Neutrophils # Seg Neutrophils # Man Lymphocytes # (Manual) Monocytes # (Manual) PT INR APTT D-Dimer ABG pH POC ABG pCO2 POC ABG pO2 ABG pO2 ABG HCO3 ABG O2 Saturation ABG Base Excess ABG Hemoglobin ABG Oxyhemoglobin ABG Sodium ABG Potassium ABG Chloride ABG Glucose Oxyhemoglobin Sodium Potassium Chloride Carbon Dioxide BUN Creatinine Glucose POC Glucose 162 H 190 H 208 H Lactic Acid Calcium Magnesium Ferritin Total Bilirubin Direct Bilirubin AST ALT Alkaline Phosphatase Lactate Dehydrogenase C-Reactive Protein Total Protein Albumin Triglycerides Arterial Blood Glucose Arterial Blood Ionized Calcium Urine WBC (Auto) Coronavirus (PCR) SARS-CoV-2 IgG Ab Crossmatch 05/30/20 05/30/20 05/30/20 09:30 11:35 11:54 WBC 12.4 H RBC 3.48 L Hgb 11.3 L Hct 34.6 L MCV 99 H MCH 33 H MCHC RDW Lymph % (Auto) Lymph # (Auto) Seg Neutrophils % Seg Neuts % (Manual) Lymphocytes % (Manual) Nucleated RBC % Seg Neutrophils # Seg Neutrophils # Man Lymphocytes # (Manual) Monocytes # (Manual) PT INR APTT D-Dimer ABG pH 7.455 H POC ABG pCO2 57.5 H POC ABG pO2 81.5 L ABG pO2 ABG HCO3 ABG O2 Saturation ABG Base Excess ABG Hemoglobin ABG Oxyhemoglobin ABG Sodium ABG Potassium ABG Chloride 96.0 L ABG Glucose 204 H Oxyhemoglobin Sodium Potassium Chloride Carbon Dioxide BUN Creatinine Glucose POC Glucose 183 H Lactic Acid Calcium Magnesium Ferritin Total Bilirubin Direct Bilirubin AST ALT Alkaline Phosphatase Lactate Dehydrogenase C-Reactive Protein Total Protein Albumin Triglycerides Arterial Blood Glucose 204 H Arterial Blood Ionized Calcium Urine WBC (Auto) Coronavirus (PCR) SARS-CoV-2 IgG Ab Crossmatch 05/30/20 05/31/20 05/31/20 18:01 00:10 03:22 WBC RBC Hgb Hct MCV MCH MCHC RDW Lymph % (Auto) Lymph # (Auto) Seg Neutrophils % Seg Neuts % (Manual) Lymphocytes % (Manual) Nucleated RBC % Seg Neutrophils # Seg Neutrophils # Man Lymphocytes # (Manual) Monocytes # (Manual) PT INR APTT D-Dimer ABG pH POC ABG pCO2 60.4 H POC ABG pO2 71.5 L ABG pO2 ABG HCO3 ABG O2 Saturation ABG Base Excess ABG Hemoglobin ABG Oxyhemoglobin ABG Sodium ABG Potassium ABG Chloride 96.0 L ABG Glucose 169 H Oxyhemoglobin Sodium Potassium Chloride Carbon Dioxide BUN Creatinine Glucose POC Glucose 184 H 135 H Lactic Acid Calcium Magnesium Ferritin Total Bilirubin Direct Bilirubin AST ALT Alkaline Phosphatase Lactate Dehydrogenase C-Reactive Protein Total Protein Albumin Triglycerides Arterial Blood Glucose 169 H Arterial Blood Ionized Calcium 4.5 L Urine WBC (Auto) Coronavirus (PCR) SARS-CoV-2 IgG Ab Crossmatch 05/31/20 05/31/20 05/31/20 05:24 11:18 14:41 WBC RBC Hgb Hct MCV MCH MCHC RDW Lymph % (Auto) Lymph # (Auto) Seg Neutrophils % Seg Neuts % (Manual) Lymphocytes % (Manual) Nucleated RBC % Seg Neutrophils # Seg Neutrophils # Man Lymphocytes # (Manual) Monocytes # (Manual) PT INR APTT D-Dimer ABG pH POC ABG pCO2 POC ABG pO2 ABG pO2 ABG HCO3 ABG O2 Saturation ABG Base Excess ABG Hemoglobin ABG Oxyhemoglobin ABG Sodium ABG Potassium ABG Chloride ABG Glucose Oxyhemoglobin Sodium Potassium Chloride 96.8 L Carbon Dioxide 37 H BUN 31 H Creatinine 0.6 L Glucose 213 H POC Glucose 164 H 208 H Lactic Acid Calcium Magnesium Ferritin Total Bilirubin Direct Bilirubin AST ALT Alkaline Phosphatase Lactate Dehydrogenase C-Reactive Protein Total Protein Albumin Triglycerides Arterial Blood Glucose Arterial Blood Ionized Calcium Urine WBC (Auto) Coronavirus (PCR) SARS-CoV-2 IgG Ab Crossmatch 05/31/20 05/31/20 06/01/20 17:37 23:47 03:48 WBC RBC Hgb Hct MCV MCH MCHC RDW Lymph % (Auto) Lymph # (Auto) Seg Neutrophils % Seg Neuts % (Manual) Lymphocytes % (Manual) Nucleated RBC % Seg Neutrophils # Seg Neutrophils # Man Lymphocytes # (Manual) Monocytes # (Manual) PT INR APTT D-Dimer ABG pH POC ABG pCO2 59.7 H POC ABG pO2 73.9 L ABG pO2 ABG HCO3 ABG O2 Saturation ABG Base Excess ABG Hemoglobin ABG Oxyhemoglobin ABG Sodium ABG Potassium ABG Chloride 95.0 L ABG Glucose 256 H Oxyhemoglobin Sodium Potassium Chloride Carbon Dioxide BUN Creatinine Glucose POC Glucose 168 H 178 H Lactic Acid Calcium Magnesium Ferritin Total Bilirubin Direct Bilirubin AST ALT Alkaline Phosphatase Lactate Dehydrogenase C-Reactive Protein Total Protein Albumin Triglycerides Arterial Blood Glucose 256 H Arterial Blood Ionized Calcium Urine WBC (Auto) Coronavirus (PCR) SARS-CoV-2 IgG Ab Crossmatch 06/01/20 06/01/20 06/01/20 05:01 07:47 07:47 WBC 14.4 H RBC 3.46 L Hgb 11.1 L Hct 34.3 L MCV 99 H MCH MCHC RDW Lymph % (Auto) Lymph # (Auto) Seg Neutrophils % Seg Neuts % (Manual) 86.0 H Lymphocytes % (Manual) 9.0 L Nucleated RBC % Seg Neutrophils # Seg Neutrophils # Man 12.4 H Lymphocytes # (Manual) Monocytes # (Manual) PT INR APTT D-Dimer ABG pH POC ABG pCO2 POC ABG pO2 ABG pO2 ABG HCO3 ABG O2 Saturation ABG Base Excess ABG Hemoglobin ABG Oxyhemoglobin ABG Sodium ABG Potassium ABG Chloride ABG Glucose Oxyhemoglobin Sodium Potassium Chloride Carbon Dioxide BUN Creatinine Glucose POC Glucose 197 H Lactic Acid Calcium Magnesium Ferritin Total Bilirubin Direct Bilirubin AST ALT Alkaline Phosphatase Lactate Dehydrogenase C-Reactive Protein Total Protein Albumin Triglycerides 244 H Arterial Blood Glucose Arterial Blood Ionized Calcium Urine WBC (Auto) Coronavirus (PCR) SARS-CoV-2 IgG Ab Crossmatch 06/01/20 06/01/20 06/01/20 07:47 11:46 18:15 WBC RBC Hgb Hct MCV MCH MCHC RDW Lymph % (Auto) Lymph # (Auto) Seg Neutrophils % Seg Neuts % (Manual) Lymphocytes % (Manual) Nucleated RBC % Seg Neutrophils # Seg Neutrophils # Man Lymphocytes # (Manual) Monocytes # (Manual) PT INR APTT D-Dimer ABG pH POC ABG pCO2 POC ABG pO2 ABG pO2 ABG HCO3 ABG O2 Saturation ABG Base Excess ABG Hemoglobin ABG Oxyhemoglobin ABG Sodium ABG Potassium ABG Chloride ABG Glucose Oxyhemoglobin Sodium Potassium Chloride 95.4 L Carbon Dioxide 35 H BUN 30 H Creatinine 0.5 L Glucose 214 H POC Glucose 181 H 221 H Lactic Acid Calcium Magnesium Ferritin Total Bilirubin Direct Bilirubin AST 54 H ALT 235 H Alkaline Phosphatase Lactate Dehydrogenase C-Reactive Protein Total Protein Albumin 2.9 L Triglycerides Arterial Blood Glucose Arterial Blood Ionized Calcium Urine WBC (Auto) Coronavirus (PCR) SARS-CoV-2 IgG Ab Crossmatch 06/01/20 06/02/20 06/02/20 23:12 04:00 05:31 WBC RBC Hgb Hct MCV MCH MCHC RDW Lymph % (Auto) Lymph # (Auto) Seg Neutrophils % Seg Neuts % (Manual) Lymphocytes % (Manual) Nucleated RBC % Seg Neutrophils # Seg Neutrophils # Man Lymphocytes # (Manual) Monocytes # (Manual) PT INR APTT D-Dimer ABG pH 7.465 H POC ABG pCO2 POC ABG pO2 ABG pO2 203.4 H ABG HCO3 41.2 H ABG O2 Saturation 99.3 H ABG Base Excess 15.1 H ABG Hemoglobin 11.5 L ABG Oxyhemoglobin ABG Sodium ABG Potassium ABG Chloride ABG Glucose Oxyhemoglobin Sodium Potassium Chloride Carbon Dioxide BUN Creatinine Glucose POC Glucose 197 H 184 H Lactic Acid Calcium Magnesium Ferritin Total Bilirubin Direct Bilirubin AST ALT Alkaline Phosphatase Lactate Dehydrogenase C-Reactive Protein Total Protein Albumin Triglycerides Arterial Blood Glucose Arterial Blood Ionized Calcium Urine WBC (Auto) Coronavirus (PCR) SARS-CoV-2 IgG Ab Crossmatch 06/02/20 06/02/20 06/02/20 11:49 18:06 23:00 WBC RBC Hgb Hct MCV MCH MCHC RDW Lymph % (Auto) Lymph # (Auto) Seg Neutrophils % Seg Neuts % (Manual) Lymphocytes % (Manual) Nucleated RBC % Seg Neutrophils # Seg Neutrophils # Man Lymphocytes # (Manual) Monocytes # (Manual) PT INR APTT D-Dimer ABG pH POC ABG pCO2 POC ABG pO2 ABG pO2 ABG HCO3 ABG O2 Saturation ABG Base Excess ABG Hemoglobin ABG Oxyhemoglobin ABG Sodium ABG Potassium ABG Chloride ABG Glucose Oxyhemoglobin Sodium Potassium Chloride Carbon Dioxide BUN Creatinine Glucose POC Glucose 195 H 177 H 228 H Lactic Acid Calcium Magnesium Ferritin Total Bilirubin Direct Bilirubin AST ALT Alkaline Phosphatase Lactate Dehydrogenase C-Reactive Protein Total Protein Albumin Triglycerides Arterial Blood Glucose Arterial Blood Ionized Calcium Urine WBC (Auto) Coronavirus (PCR) SARS-CoV-2 IgG Ab Crossmatch 06/03/20 06/03/20 06/03/20 03:58 05:19 12:21 WBC RBC Hgb Hct MCV MCH MCHC RDW Lymph % (Auto) Lymph # (Auto) Seg Neutrophils % Seg Neuts % (Manual) Lymphocytes % (Manual) Nucleated RBC % Seg Neutrophils # Seg Neutrophils # Man Lymphocytes # (Manual) Monocytes # (Manual) PT INR APTT D-Dimer ABG pH POC ABG pCO2 POC ABG pO2 ABG pO2 171.0 H ABG HCO3 42.8 H ABG O2 Saturation ABG Base Excess 15.6 H ABG Hemoglobin 12.3 L ABG Oxyhemoglobin ABG Sodium ABG Potassium ABG Chloride ABG Glucose Oxyhemoglobin Sodium Potassium Chloride Carbon Dioxide BUN Creatinine Glucose POC Glucose 122 H 207 H Lactic Acid Calcium Magnesium Ferritin Total Bilirubin Direct Bilirubin AST ALT Alkaline Phosphatase Lactate Dehydrogenase C-Reactive Protein Total Protein Albumin Triglycerides Arterial Blood Glucose Arterial Blood Ionized Calcium Urine WBC (Auto) Coronavirus (PCR) SARS-CoV-2 IgG Ab Crossmatch 06/03/20 06/03/20 06/04/20 17:27 23:50 03:55 WBC RBC Hgb Hct MCV MCH MCHC RDW Lymph % (Auto) Lymph # (Auto) Seg Neutrophils % Seg Neuts % (Manual) Lymphocytes % (Manual) Nucleated RBC % Seg Neutrophils # Seg Neutrophils # Man Lymphocytes # (Manual) Monocytes # (Manual) PT INR APTT D-Dimer ABG pH POC ABG pCO2 POC ABG pO2 ABG pO2 117.2 H ABG HCO3 42.4 H ABG O2 Saturation ABG Base Excess 15.3 H ABG Hemoglobin 10.5 L ABG Oxyhemoglobin ABG Sodium ABG Potassium ABG Chloride ABG Glucose Oxyhemoglobin Sodium Potassium Chloride Carbon Dioxide BUN Creatinine Glucose POC Glucose 157 H 214 H Lactic Acid Calcium Magnesium Ferritin Total Bilirubin Direct Bilirubin AST ALT Alkaline Phosphatase Lactate Dehydrogenase C-Reactive Protein Total Protein Albumin Triglycerides Arterial Blood Glucose Arterial Blood Ionized Calcium Urine WBC (Auto) Coronavirus (PCR) SARS-CoV-2 IgG Ab Crossmatch 06/04/20 06/04/20 06/04/20 05:49 11:41 17:30 WBC RBC Hgb Hct MCV MCH MCHC RDW Lymph % (Auto) Lymph # (Auto) Seg Neutrophils % Seg Neuts % (Manual) Lymphocytes % (Manual) Nucleated RBC % Seg Neutrophils # Seg Neutrophils # Man Lymphocytes # (Manual) Monocytes # (Manual) PT INR APTT D-Dimer ABG pH POC ABG pCO2 POC ABG pO2 ABG pO2 ABG HCO3 ABG O2 Saturation ABG Base Excess ABG Hemoglobin ABG Oxyhemoglobin ABG Sodium ABG Potassium ABG Chloride ABG Glucose Oxyhemoglobin Sodium Potassium Chloride Carbon Dioxide BUN Creatinine Glucose POC Glucose 149 H 233 H 156 H Lactic Acid Calcium Magnesium Ferritin Total Bilirubin Direct Bilirubin AST ALT Alkaline Phosphatase Lactate Dehydrogenase C-Reactive Protein Total Protein Albumin Triglycerides Arterial Blood Glucose Arterial Blood Ionized Calcium Urine WBC (Auto) Coronavirus (PCR) SARS-CoV-2 IgG Ab Crossmatch 06/04/20 06/04/20 06/04/20 19:01 20:53 23:41 WBC RBC 3.18 L Hgb 10.8 L Hct 31.8 L MCV 100 H MCH 34 H MCHC RDW Lymph % (Auto) Lymph # (Auto) Seg Neutrophils % Seg Neuts % (Manual) 86.0 H Lymphocytes % (Manual) 10.0 L Nucleated RBC % 1.0 H Seg Neutrophils # Seg Neutrophils # Man 8.5 H Lymphocytes # (Manual) 1.0 L Monocytes # (Manual) PT INR APTT D-Dimer ABG pH POC ABG pCO2 POC ABG pO2 ABG pO2 ABG HCO3 ABG O2 Saturation ABG Base Excess ABG Hemoglobin ABG Oxyhemoglobin ABG Sodium ABG Potassium ABG Chloride ABG Glucose Oxyhemoglobin Sodium Potassium 3.4 L D Chloride 96.5 L Carbon Dioxide 41 H* BUN 27 H Creatinine 0.5 L Glucose 173 H POC Glucose 217 H Lactic Acid Calcium Magnesium Ferritin Total Bilirubin Direct Bilirubin AST ALT Alkaline Phosphatase Lactate Dehydrogenase C-Reactive Protein Total Protein Albumin Triglycerides Arterial Blood Glucose Arterial Blood Ionized Calcium Urine WBC (Auto) Coronavirus (PCR) SARS-CoV-2 IgG Ab Crossmatch 06/05/20 06/05/20 06/05/20 06:05 11:54 12:35 WBC RBC Hgb Hct MCV MCH MCHC RDW Lymph % (Auto) Lymph # (Auto) Seg Neutrophils % Seg Neuts % (Manual) Lymphocytes % (Manual) Nucleated RBC % Seg Neutrophils # Seg Neutrophils # Man Lymphocytes # (Manual) Monocytes # (Manual) PT INR APTT D-Dimer ABG pH POC ABG pCO2 POC ABG pO2 ABG pO2 127.9 H ABG HCO3 41.1 H ABG O2 Saturation ABG Base Excess 13.0 H ABG Hemoglobin 13.4 L ABG Oxyhemoglobin ABG Sodium ABG Potassium ABG Chloride ABG Glucose Oxyhemoglobin Sodium Potassium Chloride Carbon Dioxide BUN Creatinine Glucose POC Glucose 137 H 211 H Lactic Acid Calcium Magnesium Ferritin Total Bilirubin Direct Bilirubin AST ALT Alkaline Phosphatase Lactate Dehydrogenase C-Reactive Protein Total Protein Albumin Triglycerides Arterial Blood Glucose Arterial Blood Ionized Calcium Urine WBC (Auto) Coronavirus (PCR) SARS-CoV-2 IgG Ab Crossmatch 06/05/20 06/05/20 06/06/20 17:03 23:49 04:42 WBC RBC Hgb Hct MCV MCH MCHC RDW Lymph % (Auto) Lymph # (Auto) Seg Neutrophils % Seg Neuts % (Manual) Lymphocytes % (Manual) Nucleated RBC % Seg Neutrophils # Seg Neutrophils # Man Lymphocytes # (Manual) Monocytes # (Manual) PT INR APTT D-Dimer ABG pH POC ABG pCO2 56.1 H POC ABG pO2 52.5 L ABG pO2 ABG HCO3 ABG O2 Saturation ABG Base Excess ABG Hemoglobin 11.7 L ABG Oxyhemoglobin ABG Sodium ABG Potassium 3.3 L ABG Chloride 95.0 L ABG Glucose 156 H Oxyhemoglobin Sodium Potassium Chloride Carbon Dioxide BUN Creatinine Glucose POC Glucose 159 H 194 H Lactic Acid Calcium Magnesium Ferritin Total Bilirubin Direct Bilirubin AST ALT Alkaline Phosphatase Lactate Dehydrogenase C-Reactive Protein Total Protein Albumin Triglycerides Arterial Blood Glucose 156 H Arterial Blood Ionized Calcium Urine WBC (Auto) Coronavirus (PCR) SARS-CoV-2 IgG Ab Crossmatch 06/06/20 06/06/20 06/06/20 05:57 12:06 17:38 WBC RBC Hgb Hct MCV MCH MCHC RDW Lymph % (Auto) Lymph # (Auto) Seg Neutrophils % Seg Neuts % (Manual) Lymphocytes % (Manual) Nucleated RBC % Seg Neutrophils # Seg Neutrophils # Man Lymphocytes # (Manual) Monocytes # (Manual) PT INR APTT D-Dimer ABG pH POC ABG pCO2 POC ABG pO2 ABG pO2 ABG HCO3 ABG O2 Saturation ABG Base Excess ABG Hemoglobin ABG Oxyhemoglobin ABG Sodium ABG Potassium ABG Chloride ABG Glucose Oxyhemoglobin Sodium Potassium Chloride Carbon Dioxide BUN Creatinine Glucose POC Glucose 144 H 230 H 162 H Lactic Acid Calcium Magnesium Ferritin Total Bilirubin Direct Bilirubin AST ALT Alkaline Phosphatase Lactate Dehydrogenase C-Reactive Protein Total Protein Albumin Triglycerides Arterial Blood Glucose Arterial Blood Ionized Calcium Urine WBC (Auto) Coronavirus (PCR) SARS-CoV-2 IgG Ab Crossmatch 06/06/20 06/07/20 06/07/20 23:50 04:34 06:03 WBC RBC Hgb Hct MCV MCH MCHC RDW Lymph % (Auto) Lymph # (Auto) Seg Neutrophils % Seg Neuts % (Manual) Lymphocytes % (Manual) Nucleated RBC % Seg Neutrophils # Seg Neutrophils # Man Lymphocytes # (Manual) Monocytes # (Manual) PT INR APTT D-Dimer ABG pH 7.511 H POC ABG pCO2 53.5 H POC ABG pO2 114.5 H ABG pO2 ABG HCO3 ABG O2 Saturation ABG Base Excess ABG Hemoglobin 9.4 L ABG Oxyhemoglobin ABG Sodium 134.5 L ABG Potassium ABG Chloride 94.0 L ABG Glucose 186 H Oxyhemoglobin Sodium Potassium Chloride Carbon Dioxide BUN Creatinine Glucose POC Glucose 181 H 155 H Lactic Acid Calcium Magnesium Ferritin Total Bilirubin Direct Bilirubin AST ALT Alkaline Phosphatase Lactate Dehydrogenase C-Reactive Protein Total Protein Albumin Triglycerides Arterial Blood Glucose 186 H Arterial Blood Ionized Calcium 4.5 L Urine WBC (Auto) Coronavirus (PCR) SARS-CoV-2 IgG Ab Crossmatch 06/07/20 06/07/20 06/07/20 13:41 14:58 14:58 WBC RBC 2.72 L Hgb 9.3 L Hct 27.2 L MCV 100 H MCH 34 H MCHC RDW Lymph % (Auto) Lymph # (Auto) Seg Neutrophils % Seg Neuts % (Manual) Lymphocytes % (Manual) Nucleated RBC % Seg Neutrophils # Seg Neutrophils # Man Lymphocytes # (Manual) Monocytes # (Manual) PT INR APTT D-Dimer ABG pH POC ABG pCO2 POC ABG pO2 ABG pO2 ABG HCO3 ABG O2 Saturation ABG Base Excess ABG Hemoglobin ABG Oxyhemoglobin ABG Sodium ABG Potassium ABG Chloride ABG Glucose Oxyhemoglobin Sodium Potassium Chloride 93.5 L Carbon Dioxide 39 H BUN 22 H Creatinine 0.4 L Glucose 188 H POC Glucose 201 H Lactic Acid Calcium Magnesium Ferritin Total Bilirubin Direct Bilirubin AST 61 H ALT 273 H Alkaline Phosphatase Lactate Dehydrogenase C-Reactive Protein Total Protein 5.9 L Albumin 2.7 L Triglycerides Arterial Blood Glucose Arterial Blood Ionized Calcium Urine WBC (Auto) Coronavirus (PCR) SARS-CoV-2 IgG Ab Crossmatch 06/07/20 06/08/20 06/08/20 23:18 05:31 12:07 WBC RBC Hgb Hct MCV MCH MCHC RDW Lymph % (Auto) Lymph # (Auto) Seg Neutrophils % Seg Neuts % (Manual) Lymphocytes % (Manual) Nucleated RBC % Seg Neutrophils # Seg Neutrophils # Man Lymphocytes # (Manual) Monocytes # (Manual) PT INR APTT D-Dimer ABG pH POC ABG pCO2 POC ABG pO2 ABG pO2 ABG HCO3 ABG O2 Saturation ABG Base Excess ABG Hemoglobin ABG Oxyhemoglobin ABG Sodium ABG Potassium ABG Chloride ABG Glucose Oxyhemoglobin Sodium Potassium Chloride Carbon Dioxide BUN Creatinine Glucose POC Glucose 214 H 129 H 179 H Lactic Acid Calcium Magnesium Ferritin Total Bilirubin Direct Bilirubin AST ALT Alkaline Phosphatase Lactate Dehydrogenase C-Reactive Protein Total Protein Albumin Triglycerides Arterial Blood Glucose Arterial Blood Ionized Calcium Urine WBC (Auto) Coronavirus (PCR) SARS-CoV-2 IgG Ab Crossmatch 06/08/20 06/08/2020 18:18 23:35 05:42 WBC RBC Hgb Hct MCV MCH MCHC RDW Lymph % (Auto) Lymph # (Auto) Seg Neutrophils % Seg Neuts % (Manual) Lymphocytes % (Manual) Nucleated RBC % Seg Neutrophils # Seg Neutrophils # Man Lymphocytes # (Manual) Monocytes # (Manual) PT INR APTT D-Dimer ABG pH POC ABG pCO2 POC ABG pO2 ABG pO2 ABG HCO3 ABG O2 Saturation ABG Base Excess ABG Hemoglobin ABG Oxyhemoglobin ABG Sodium ABG Potassium ABG Chloride ABG Glucose Oxyhemoglobin Sodium Potassium Chloride Carbon Dioxide BUN Creatinine Glucose POC Glucose 172 H 177 H 137 H Lactic Acid Calcium Magnesium Ferritin Total Bilirubin Direct Bilirubin AST ALT Alkaline Phosphatase Lactate Dehydrogenase C-Reactive Protein Total Protein Albumin Triglycerides Arterial Blood Glucose Arterial Blood Ionized Calcium Urine WBC (Auto) Coronavirus (PCR) SARS-CoV-2 IgG Ab Crossmatch 06/09/20 06/09/20 06/09/20 06:20 07:55 07:55 WBC 12.4 H RBC 3.26 L Hgb 11.1 L Hct 33.4 L D MCV 102 H MCH 34 H MCHC RDW Lymph % (Auto) Lymph # (Auto) Seg Neutrophils % Seg Neuts % (Manual) Lymphocytes % (Manual) Nucleated RBC % Seg Neutrophils # Seg Neutrophils # Man Lymphocytes # (Manual) Monocytes # (Manual) PT INR APTT D-Dimer ABG pH 7.466 H POC ABG pCO2 50.7 H POC ABG pO2 53.0 L ABG pO2 ABG HCO3 ABG O2 Saturation ABG Base Excess ABG Hemoglobin ABG Oxyhemoglobin ABG Sodium ABG Potassium 2.9 L ABG Chloride 93.0 L ABG Glucose 138 H Oxyhemoglobin Sodium Potassium 3.0 L Chloride 92.3 L Carbon Dioxide 37 H BUN 21 H Creatinine 0.6 L Glucose 120 H POC Glucose Lactic Acid Calcium Magnesium Ferritin Total Bilirubin Direct Bilirubin AST ALT Alkaline Phosphatase Lactate Dehydrogenase C-Reactive Protein Total Protein Albumin Triglycerides Arterial Blood Glucose 138 H Arterial Blood Ionized Calcium 4.5 L Urine WBC (Auto) Coronavirus (PCR) SARS-CoV-2 IgG Ab Crossmatch 06/09/20 06/09/20 06/10/20 11:22 18:32 04:46 WBC RBC Hgb Hct MCV MCH MCHC RDW Lymph % (Auto) Lymph # (Auto) Seg Neutrophils % Seg Neuts % (Manual) Lymphocytes % (Manual) Nucleated RBC % Seg Neutrophils # Seg Neutrophils # Man Lymphocytes # (Manual) Monocytes # (Manual) PT INR APTT D-Dimer ABG pH 7.501 H POC ABG pCO2 POC ABG pO2 126.5 H ABG pO2 ABG HCO3 ABG O2 Saturation ABG Base Excess ABG Hemoglobin 10.3 L ABG Oxyhemoglobin ABG Sodium ABG Potassium ABG Chloride ABG Glucose 220 H Oxyhemoglobin Sodium Potassium Chloride Carbon Dioxide BUN Creatinine Glucose POC Glucose 117 H 121 H Lactic Acid Calcium Magnesium Ferritin Total Bilirubin Direct Bilirubin AST ALT Alkaline Phosphatase Lactate Dehydrogenase C-Reactive Protein Total Protein Albumin Triglycerides Arterial Blood Glucose 220 H Arterial Blood Ionized Calcium Urine WBC (Auto) Coronavirus (PCR) SARS-CoV-2 IgG Ab Crossmatch 06/10/20 06/10/20 06/10/20 05:30 09:38 12:03 WBC RBC Hgb Hct MCV MCH MCHC RDW Lymph % (Auto) Lymph # (Auto) Seg Neutrophils % Seg Neuts % (Manual) Lymphocytes % (Manual) Nucleated RBC % Seg Neutrophils # Seg Neutrophils # Man Lymphocytes # (Manual) Monocytes # (Manual) PT INR APTT D-Dimer ABG pH POC ABG pCO2 POC ABG pO2 ABG pO2 ABG HCO3 ABG O2 Saturation ABG Base Excess ABG Hemoglobin ABG Oxyhemoglobin ABG Sodium ABG Potassium ABG Chloride ABG Glucose Oxyhemoglobin Sodium Potassium Chloride Carbon Dioxide BUN Creatinine Glucose POC Glucose 181 H 204 H Lactic Acid Calcium Magnesium Ferritin Total Bilirubin Direct Bilirubin AST ALT Alkaline Phosphatase Lactate Dehydrogenase C-Reactive Protein Total Protein Albumin Triglycerides 738 H Arterial Blood Glucose Arterial Blood Ionized Calcium Urine WBC (Auto) Coronavirus (PCR) SARS-CoV-2 IgG Ab Crossmatch 06/10/20 06/11/20 06/11/20 17:17 00:04 04:38 WBC RBC Hgb Hct MCV MCH MCHC RDW Lymph % (Auto) Lymph # (Auto) Seg Neutrophils % Seg Neuts % (Manual) Lymphocytes % (Manual) Nucleated RBC % Seg Neutrophils # Seg Neutrophils # Man Lymphocytes # (Manual) Monocytes # (Manual) PT INR APTT D-Dimer ABG pH 7.479 H POC ABG pCO2 POC ABG pO2 76.7 L ABG pO2 ABG HCO3 ABG O2 Saturation ABG Base Excess ABG Hemoglobin 9.8 L ABG Oxyhemoglobin ABG Sodium 135.8 L ABG Potassium ABG Chloride ABG Glucose 238 H Oxyhemoglobin Sodium Potassium Chloride Carbon Dioxide BUN Creatinine Glucose POC Glucose 156 H 178 H Lactic Acid Calcium Magnesium Ferritin Total Bilirubin Direct Bilirubin AST ALT Alkaline Phosphatase Lactate Dehydrogenase C-Reactive Protein Total Protein Albumin Triglycerides Arterial Blood Glucose 238 H Arterial Blood Ionized Calcium Urine WBC (Auto) Coronavirus (PCR) SARS-CoV-2 IgG Ab Crossmatch 06/11/20 06/11/20 06/11/20 05:21 06:52 11:50 WBC RBC Hgb Hct MCV MCH MCHC RDW Lymph % (Auto) Lymph # (Auto) Seg Neutrophils % Seg Neuts % (Manual) Lymphocytes % (Manual) Nucleated RBC % Seg Neutrophils # Seg Neutrophils # Man Lymphocytes # (Manual) Monocytes # (Manual) PT INR APTT D-Dimer ABG pH POC ABG pCO2 POC ABG pO2 ABG pO2 ABG HCO3 ABG O2 Saturation ABG Base Excess ABG Hemoglobin ABG Oxyhemoglobin ABG Sodium ABG Potassium ABG Chloride ABG Glucose Oxyhemoglobin Sodium Potassium Chloride Carbon Dioxide BUN Creatinine Glucose POC Glucose 215 H 187 H Lactic Acid Calcium Magnesium Ferritin Total Bilirubin Direct Bilirubin AST ALT Alkaline Phosphatase Lactate Dehydrogenase C-Reactive Protein Total Protein Albumin Triglycerides 331 H Arterial Blood Glucose Arterial Blood Ionized Calcium Urine WBC (Auto) Coronavirus (PCR) SARS-CoV-2 IgG Ab Crossmatch 06/11/20 06/11/20 06/12/20 17:49 23:35 04:52 WBC RBC Hgb Hct MCV MCH MCHC RDW Lymph % (Auto) Lymph # (Auto) Seg Neutrophils % Seg Neuts % (Manual) Lymphocytes % (Manual) Nucleated RBC % Seg Neutrophils # Seg Neutrophils # Man Lymphocytes # (Manual) Monocytes # (Manual) PT INR APTT D-Dimer ABG pH 7.486 H POC ABG pCO2 POC ABG pO2 ABG pO2 ABG HCO3 ABG O2 Saturation ABG Base Excess ABG Hemoglobin 9.4 L ABG Oxyhemoglobin ABG Sodium ABG Potassium 3.2 L ABG Chloride ABG Glucose 209 H Oxyhemoglobin Sodium Potassium Chloride Carbon Dioxide BUN Creatinine Glucose POC Glucose 211 H 200 H Lactic Acid Calcium Magnesium Ferritin Total Bilirubin Direct Bilirubin AST ALT Alkaline Phosphatase Lactate Dehydrogenase C-Reactive Protein Total Protein Albumin Triglycerides Arterial Blood Glucose 209 H Arterial Blood Ionized Calcium Urine WBC (Auto) Coronavirus (PCR) SARS-CoV-2 IgG Ab Crossmatch 06/12/20 06/12/20 06/12/20 05:13 11:47 18:33 WBC RBC Hgb Hct MCV MCH MCHC RDW Lymph % (Auto) Lymph # (Auto) Seg Neutrophils % Seg Neuts % (Manual) Lymphocytes % (Manual) Nucleated RBC % Seg Neutrophils # Seg Neutrophils # Man Lymphocytes # (Manual) Monocytes # (Manual) PT INR APTT D-Dimer ABG pH POC ABG pCO2 POC ABG pO2 ABG pO2 ABG HCO3 ABG O2 Saturation ABG Base Excess ABG Hemoglobin ABG Oxyhemoglobin ABG Sodium ABG Potassium ABG Chloride ABG Glucose Oxyhemoglobin Sodium Potassium Chloride Carbon Dioxide BUN Creatinine Glucose POC Glucose 174 H 214 H 194 H Lactic Acid Calcium Magnesium Ferritin Total Bilirubin Direct Bilirubin AST ALT Alkaline Phosphatase Lactate Dehydrogenase C-Reactive Protein Total Protein Albumin Triglycerides Arterial Blood Glucose Arterial Blood Ionized Calcium Urine WBC (Auto) Coronavirus (PCR) SARS-CoV-2 IgG Ab Crossmatch 06/12/20 06/13/20 06/13/20 23:49 05:41 12:30 WBC RBC Hgb Hct MCV MCH MCHC RDW Lymph % (Auto) Lymph # (Auto) Seg Neutrophils % Seg Neuts % (Manual) Lymphocytes % (Manual) Nucleated RBC % Seg Neutrophils # Seg Neutrophils # Man Lymphocytes # (Manual) Monocytes # (Manual) PT INR APTT D-Dimer ABG pH POC ABG pCO2 POC ABG pO2 ABG pO2 ABG HCO3 ABG O2 Saturation ABG Base Excess ABG Hemoglobin ABG Oxyhemoglobin ABG Sodium ABG Potassium ABG Chloride ABG Glucose Oxyhemoglobin Sodium Potassium Chloride Carbon Dioxide BUN Creatinine Glucose POC Glucose 160 H 150 H 181 H Lactic Acid Calcium Magnesium Ferritin Total Bilirubin Direct Bilirubin AST ALT Alkaline Phosphatase Lactate Dehydrogenase C-Reactive Protein Total Protein Albumin Triglycerides Arterial Blood Glucose Arterial Blood Ionized Calcium Urine WBC (Auto) Coronavirus (PCR) SARS-CoV-2 IgG Ab Crossmatch 06/13/20 06/13/20 06/13/20 14:14 17:48 23:27 WBC 12.8 H RBC 2.33 L Hgb 8.0 L Hct 23.3 L MCV 100 H MCH 34 H MCHC RDW 15.7 H Lymph % (Auto) Lymph # (Auto) Seg Neutrophils % Seg Neuts % (Manual) 85.0 H Lymphocytes % (Manual) 10.0 L Nucleated RBC % Seg Neutrophils # Seg Neutrophils # Man 10.9 H Lymphocytes # (Manual) Monocytes # (Manual) PT INR APTT D-Dimer ABG pH POC ABG pCO2 POC ABG pO2 ABG pO2 ABG HCO3 ABG O2 Saturation ABG Base Excess ABG Hemoglobin ABG Oxyhemoglobin ABG Sodium ABG Potassium ABG Chloride ABG Glucose Oxyhemoglobin Sodium Potassium Chloride Carbon Dioxide BUN Creatinine Glucose POC Glucose 173 H 154 H Lactic Acid Calcium Magnesium Ferritin Total Bilirubin Direct Bilirubin AST ALT Alkaline Phosphatase Lactate Dehydrogenase C-Reactive Protein Total Protein Albumin Triglycerides Arterial Blood Glucose Arterial Blood Ionized Calcium Urine WBC (Auto) Coronavirus (PCR) SARS-CoV-2 IgG Ab Crossmatch 06/14/20 06/14/20 06/14/20 03:58 05:21 07:15 WBC 26.2 H RBC 2.97 L Hgb 9.7 L Hct 29.9 L D MCV 101 H MCH 33 H MCHC RDW 15.3 H Lymph % (Auto) Lymph # (Auto) Seg Neutrophils % Seg Neuts % (Manual) 79.0 H Lymphocytes % (Manual) 5.0 L Nucleated RBC % 3.0 H Seg Neutrophils # Seg Neutrophils # Man 20.7 H Lymphocytes # (Manual) Monocytes # (Manual) 1.3 H PT INR APTT D-Dimer ABG pH POC ABG pCO2 51.5 H POC ABG pO2 70.0 L ABG pO2 ABG HCO3 ABG O2 Saturation ABG Base Excess ABG Hemoglobin 10.1 L ABG Oxyhemoglobin ABG Sodium 131.5 L ABG Potassium 3.1 L ABG Chloride 93.0 L ABG Glucose 188 H Oxyhemoglobin Sodium Potassium Chloride Carbon Dioxide BUN Creatinine Glucose POC Glucose 147 H Lactic Acid Calcium Magnesium Ferritin Total Bilirubin Direct Bilirubin AST ALT Alkaline Phosphatase Lactate Dehydrogenase C-Reactive Protein Total Protein Albumin Triglycerides Arterial Blood Glucose 188 H Arterial Blood Ionized Calcium Urine WBC (Auto) Coronavirus (PCR) SARS-CoV-2 IgG Ab Crossmatch 06/14/20 06/14/20 06/14/20 07:15 11:30 11:50 WBC RBC Hgb Hct MCV MCH MCHC RDW Lymph % (Auto) Lymph # (Auto) Seg Neutrophils % Seg Neuts % (Manual) Lymphocytes % (Manual) Nucleated RBC % Seg Neutrophils # Seg Neutrophils # Man Lymphocytes # (Manual) Monocytes # (Manual) PT INR APTT D-Dimer ABG pH POC ABG pCO2 POC ABG pO2 ABG pO2 ABG HCO3 ABG O2 Saturation ABG Base Excess ABG Hemoglobin ABG Oxyhemoglobin ABG Sodium ABG Potassium ABG Chloride ABG Glucose Oxyhemoglobin Sodium 135 L Potassium 3.5 L Chloride 90.4 L Carbon Dioxide 38 H BUN Creatinine 0.5 L Glucose 190 H POC Glucose 176 H Lactic Acid Calcium Magnesium Ferritin 1496.0 H Total Bilirubin Direct Bilirubin AST ALT 81 H Alkaline Phosphatase Lactate Dehydrogenase C-Reactive Protein Total Protein Albumin 2.9 L Triglycerides Arterial Blood Glucose Arterial Blood Ionized Calcium Urine WBC (Auto) Coronavirus (PCR) SARS-CoV-2 IgG Ab Crossmatch 06/14/20 06/15/20 06/15/20 23:31 04:00 05:00 WBC RBC Hgb Hct MCV MCH MCHC RDW Lymph % (Auto) Lymph # (Auto) Seg Neutrophils % Seg Neuts % (Manual) Lymphocytes % (Manual) Nucleated RBC % Seg Neutrophils # Seg Neutrophils # Man Lymphocytes # (Manual) Monocytes # (Manual) PT INR APTT D-Dimer ABG pH POC ABG pCO2 POC ABG pO2 ABG pO2 ABG HCO3 ABG O2 Saturation ABG Base Excess ABG Hemoglobin ABG Oxyhemoglobin ABG Sodium ABG Potassium ABG Chloride ABG Glucose Oxyhemoglobin Sodium 133 L Potassium Chloride 91.1 L Carbon Dioxide 34 H BUN Creatinine 0.4 L Glucose 159 H POC Glucose 200 H Lactic Acid Calcium Magnesium Ferritin Total Bilirubin 2.00 H Direct Bilirubin AST 47 H ALT 77 H Alkaline Phosphatase Lactate Dehydrogenase C-Reactive Protein Total Protein Albumin 2.6 L Triglycerides 152 H Arterial Blood Glucose Arterial Blood Ionized Calcium Urine WBC (Auto) Coronavirus (PCR) SARS-CoV-2 IgG Ab Crossmatch 06/15/20 06/15/20 06/15/20 05:35 06:27 11:38 WBC RBC Hgb Hct MCV MCH MCHC RDW Lymph % (Auto) Lymph # (Auto) Seg Neutrophils % Seg Neuts % (Manual) Lymphocytes % (Manual) Nucleated RBC % Seg Neutrophils # Seg Neutrophils # Man Lymphocytes # (Manual) Monocytes # (Manual) PT INR APTT D-Dimer ABG pH POC ABG pCO2 61.0 H POC ABG pO2 67.9 L ABG pO2 ABG HCO3 ABG O2 Saturation ABG Base Excess ABG Hemoglobin 10.4 L ABG Oxyhemoglobin ABG Sodium 132.7 L ABG Potassium 3.3 L ABG Chloride 92.0 L ABG Glucose 158 H Oxyhemoglobin Sodium Potassium Chloride Carbon Dioxide BUN Creatinine Glucose POC Glucose 148 H 197 H Lactic Acid Calcium Magnesium Ferritin Total Bilirubin Direct Bilirubin AST ALT Alkaline Phosphatase Lactate Dehydrogenase C-Reactive Protein Total Protein Albumin Triglycerides Arterial Blood Glucose 158 H Arterial Blood Ionized Calcium Urine WBC (Auto) Coronavirus (PCR) SARS-CoV-2 IgG Ab Crossmatch 06/15/20 06/15/20 06/16/20 17:29 Unknown 00:01 WBC 20.7 H RBC 2.57 L Hgb 8.9 L Hct 25.8 L MCV 101 H MCH 35 H MCHC 35 H RDW 16.0 H Lymph % (Auto) Lymph # (Auto) Seg Neutrophils % Seg Neuts % (Manual) 83.0 H Lymphocytes % (Manual) 8.0 L Nucleated RBC % Seg Neutrophils # Seg Neutrophils # Man 17.2 H Lymphocytes # (Manual) Monocytes # (Manual) 1.2 H PT INR APTT D-Dimer ABG pH POC ABG pCO2 POC ABG pO2 ABG pO2 ABG HCO3 ABG O2 Saturation ABG Base Excess ABG Hemoglobin ABG Oxyhemoglobin ABG Sodium ABG Potassium ABG Chloride ABG Glucose Oxyhemoglobin Sodium Potassium Chloride Carbon Dioxide BUN Creatinine Glucose POC Glucose 231 H 257 H Lactic Acid Calcium Magnesium Ferritin Total Bilirubin Direct Bilirubin AST ALT Alkaline Phosphatase Lactate Dehydrogenase C-Reactive Protein Total Protein Albumin Triglycerides Arterial Blood Glucose Arterial Blood Ionized Calcium Urine WBC (Auto) Coronavirus (PCR) SARS-CoV-2 IgG Ab Crossmatch 06/16/20 06/16/20 06/16/20 04:00 04:00 05:22 WBC 13.8 H RBC 2.03 L Hgb 7.6 L Hct 20.7 L MCV 102 H MCH 37 H MCHC 37 H RDW 16.2 H Lymph % (Auto) 4.4 L Lymph # (Auto) 0.6 L Seg Neutrophils % Seg Neuts % (Manual) Lymphocytes % (Manual) Nucleated RBC % Seg Neutrophils # 12.7 H Seg Neutrophils # Man Lymphocytes # (Manual) Monocytes # (Manual) PT INR APTT D-Dimer ABG pH POC ABG pCO2 POC ABG pO2 ABG pO2 ABG HCO3 ABG O2 Saturation ABG Base Excess ABG Hemoglobin ABG Oxyhemoglobin ABG Sodium ABG Potassium ABG Chloride ABG Glucose Oxyhemoglobin Sodium 130 L Potassium Chloride 88.9 L Carbon Dioxide 36 H BUN Creatinine 0.3 L Glucose 276 H POC Glucose 250 H Lactic Acid Calcium Magnesium Ferritin Total Bilirubin Direct Bilirubin AST ALT Alkaline Phosphatase Lactate Dehydrogenase C-Reactive Protein Total Protein Albumin Triglycerides Arterial Blood Glucose Arterial Blood Ionized Calcium Urine WBC (Auto) Coronavirus (PCR) SARS-CoV-2 IgG Ab Crossmatch 06/16/20 06/16/20 06/17/20 12:44 18:18 00:39 WBC RBC Hgb Hct MCV MCH MCHC RDW Lymph % (Auto) Lymph # (Auto) Seg Neutrophils % Seg Neuts % (Manual) Lymphocytes % (Manual) Nucleated RBC % Seg Neutrophils # Seg Neutrophils # Man Lymphocytes # (Manual) Monocytes # (Manual) PT INR APTT D-Dimer ABG pH POC ABG pCO2 POC ABG pO2 ABG pO2 ABG HCO3 ABG O2 Saturation ABG Base Excess ABG Hemoglobin ABG Oxyhemoglobin ABG Sodium ABG Potassium ABG Chloride ABG Glucose Oxyhemoglobin Sodium Potassium Chloride Carbon Dioxide BUN Creatinine Glucose POC Glucose 279 H 239 H 247 H Lactic Acid Calcium Magnesium Ferritin Total Bilirubin Direct Bilirubin AST ALT Alkaline Phosphatase Lactate Dehydrogenase C-Reactive Protein Total Protein Albumin Triglycerides Arterial Blood Glucose Arterial Blood Ionized Calcium Urine WBC (Auto) Coronavirus (PCR) SARS-CoV-2 IgG Ab Crossmatch 06/17/20 06/17/20 06/17/20 03:40 04:08 10:54 WBC RBC Hgb Hct MCV MCH MCHC RDW Lymph % (Auto) Lymph # (Auto) Seg Neutrophils % Seg Neuts % (Manual) Lymphocytes % (Manual) Nucleated RBC % Seg Neutrophils # Seg Neutrophils # Man Lymphocytes # (Manual) Monocytes # (Manual) PT INR APTT D-Dimer ABG pH POC ABG pCO2 65.7 H POC ABG pO2 ABG pO2 ABG HCO3 ABG O2 Saturation ABG Base Excess ABG Hemoglobin 11.9 L ABG Oxyhemoglobin ABG Sodium ABG Potassium ABG Chloride 93.0 L ABG Glucose 244 H Oxyhemoglobin Sodium Potassium Chloride Carbon Dioxide BUN Creatinine Glucose POC Glucose 221 H 248 H Lactic Acid Calcium Magnesium Ferritin Total Bilirubin Direct Bilirubin AST ALT Alkaline Phosphatase Lactate Dehydrogenase C-Reactive Protein Total Protein Albumin Triglycerides Arterial Blood Glucose 244 H Arterial Blood Ionized Calcium Urine WBC (Auto) Coronavirus (PCR) SARS-CoV-2 IgG Ab Crossmatch 06/17/20 06/17/20 06/17/20 17:47 23:11 23:29 WBC RBC Hgb Hct MCV MCH MCHC RDW Lymph % (Auto) Lymph # (Auto) Seg Neutrophils % Seg Neuts % (Manual) Lymphocytes % (Manual) Nucleated RBC % Seg Neutrophils # Seg Neutrophils # Man Lymphocytes # (Manual) Monocytes # (Manual) PT INR APTT D-Dimer ABG pH POC ABG pCO2 85.2 H POC ABG pO2 48.4 L ABG pO2 ABG HCO3 ABG O2 Saturation ABG Base Excess ABG Hemoglobin 8.0 L ABG Oxyhemoglobin ABG Sodium ABG Potassium ABG Chloride 95.0 L ABG Glucose 292 H Oxyhemoglobin Sodium Potassium Chloride Carbon Dioxide BUN Creatinine Glucose POC Glucose 245 H 252 H Lactic Acid Calcium Magnesium Ferritin Total Bilirubin Direct Bilirubin AST ALT Alkaline Phosphatase Lactate Dehydrogenase C-Reactive Protein Total Protein Albumin Triglycerides Arterial Blood Glucose 292 H Arterial Blood Ionized Calcium Urine WBC (Auto) Coronavirus (PCR) SARS-CoV-2 IgG Ab Crossmatch 06/18/20 06/18/20 06/18/20 03:14 05:34 11:47 WBC RBC Hgb Hct MCV MCH MCHC RDW Lymph % (Auto) Lymph # (Auto) Seg Neutrophils % Seg Neuts % (Manual) Lymphocytes % (Manual) Nucleated RBC % Seg Neutrophils # Seg Neutrophils # Man Lymphocytes # (Manual) Monocytes # (Manual) PT INR APTT D-Dimer ABG pH POC ABG pCO2 65.4 H POC ABG pO2 160.7 H ABG pO2 ABG HCO3 ABG O2 Saturation ABG Base Excess ABG Hemoglobin 7.8 L ABG Oxyhemoglobin ABG Sodium ABG Potassium ABG Chloride 95.0 L ABG Glucose 251 H Oxyhemoglobin Sodium Potassium Chloride Carbon Dioxide BUN Creatinine Glucose POC Glucose 243 H 263 H Lactic Acid Calcium Magnesium Ferritin Total Bilirubin Direct Bilirubin AST ALT Alkaline Phosphatase Lactate Dehydrogenase C-Reactive Protein Total Protein Albumin Triglycerides Arterial Blood Glucose 251 H Arterial Blood Ionized Calcium Urine WBC (Auto) Coronavirus (PCR) SARS-CoV-2 IgG Ab Crossmatch 06/18/20 06/18/20 06/19/20 17:31 23:33 04:32 WBC RBC Hgb Hct MCV MCH MCHC RDW Lymph % (Auto) Lymph # (Auto) Seg Neutrophils % Seg Neuts % (Manual) Lymphocytes % (Manual) Nucleated RBC % Seg Neutrophils # Seg Neutrophils # Man Lymphocytes # (Manual) Monocytes # (Manual) PT INR APTT D-Dimer ABG pH POC ABG pCO2 83.1 H POC ABG pO2 65.8 L ABG pO2 ABG HCO3 ABG O2 Saturation ABG Base Excess ABG Hemoglobin 8.9 L ABG Oxyhemoglobin ABG Sodium ABG Potassium ABG Chloride 96.0 L ABG Glucose 297 H Oxyhemoglobin Sodium Potassium Chloride Carbon Dioxide BUN Creatinine Glucose POC Glucose 286 H 238 H Lactic Acid Calcium Magnesium Ferritin Total Bilirubin Direct Bilirubin AST ALT Alkaline Phosphatase Lactate Dehydrogenase C-Reactive Protein Total Protein Albumin Triglycerides Arterial Blood Glucose 297 H Arterial Blood Ionized Calcium Urine WBC (Auto) Coronavirus (PCR) SARS-CoV-2 IgG Ab Crossmatch 06/19/20 06/19/20 06/19/20 05:55 11:20 17:12 WBC RBC Hgb Hct MCV MCH MCHC RDW Lymph % (Auto) Lymph # (Auto) Seg Neutrophils % Seg Neuts % (Manual) Lymphocytes % (Manual) Nucleated RBC % Seg Neutrophils # Seg Neutrophils # Man Lymphocytes # (Manual) Monocytes # (Manual) PT INR APTT D-Dimer ABG pH POC ABG pCO2 POC ABG pO2 ABG pO2 ABG HCO3 ABG O2 Saturation ABG Base Excess ABG Hemoglobin ABG Oxyhemoglobin ABG Sodium ABG Potassium ABG Chloride ABG Glucose Oxyhemoglobin Sodium Potassium Chloride Carbon Dioxide BUN Creatinine Glucose POC Glucose 274 H 282 H 298 H Lactic Acid Calcium Magnesium Ferritin Total Bilirubin Direct Bilirubin AST ALT Alkaline Phosphatase Lactate Dehydrogenase C-Reactive Protein Total Protein Albumin Triglycerides Arterial Blood Glucose Arterial Blood Ionized Calcium Urine WBC (Auto) Coronavirus (PCR) SARS-CoV-2 IgG Ab Crossmatch 06/19/20 06/20/20 06/20/20 23:08 03:33 06:01 WBC RBC Hgb Hct MCV MCH MCHC RDW Lymph % (Auto) Lymph # (Auto) Seg Neutrophils % Seg Neuts % (Manual) Lymphocytes % (Manual) Nucleated RBC % Seg Neutrophils # Seg Neutrophils # Man Lymphocytes # (Manual) Monocytes # (Manual) PT INR APTT D-Dimer ABG pH POC ABG pCO2 POC ABG pO2 ABG pO2 69.9 L ABG HCO3 50.8 H ABG O2 Saturation ABG Base Excess 24.2 H ABG Hemoglobin 5.8 L ABG Oxyhemoglobin ABG Sodium ABG Potassium ABG Chloride ABG Glucose Oxyhemoglobin Sodium Potassium Chloride Carbon Dioxide BUN Creatinine Glucose POC Glucose 293 H 182 H Lactic Acid Calcium Magnesium Ferritin Total Bilirubin Direct Bilirubin AST ALT Alkaline Phosphatase Lactate Dehydrogenase C-Reactive Protein Total Protein Albumin Triglycerides Arterial Blood Glucose Arterial Blood Ionized Calcium Urine WBC (Auto) Coronavirus (PCR) SARS-CoV-2 IgG Ab Crossmatch 06/20/20 06/20/20 06/20/20 11:47 17:46 23:37 WBC RBC Hgb Hct MCV MCH MCHC RDW Lymph % (Auto) Lymph # (Auto) Seg Neutrophils % Seg Neuts % (Manual) Lymphocytes % (Manual) Nucleated RBC % Seg Neutrophils # Seg Neutrophils # Man Lymphocytes # (Manual) Monocytes # (Manual) PT INR APTT D-Dimer ABG pH POC ABG pCO2 POC ABG pO2 ABG pO2 ABG HCO3 ABG O2 Saturation ABG Base Excess ABG Hemoglobin ABG Oxyhemoglobin ABG Sodium ABG Potassium ABG Chloride ABG Glucose Oxyhemoglobin Sodium Potassium Chloride Carbon Dioxide BUN Creatinine Glucose POC Glucose 170 H 215 H 256 H Lactic Acid Calcium Magnesium Ferritin Total Bilirubin Direct Bilirubin AST ALT Alkaline Phosphatase Lactate Dehydrogenase C-Reactive Protein Total Protein Albumin Triglycerides Arterial Blood Glucose Arterial Blood Ionized Calcium Urine WBC (Auto) Coronavirus (PCR) SARS-CoV-2 IgG Ab Crossmatch 06/21/20 06/21/20 06/21/20 04:00 05:14 05:51 WBC RBC Hgb Hct MCV MCH MCHC RDW Lymph % (Auto) Lymph # (Auto) Seg Neutrophils % Seg Neuts % (Manual) Lymphocytes % (Manual) Nucleated RBC % Seg Neutrophils # Seg Neutrophils # Man Lymphocytes # (Manual) Monocytes # (Manual) PT INR APTT D-Dimer ABG pH 7.474 H POC ABG pCO2 POC ABG pO2 ABG pO2 ABG HCO3 52.1 H ABG O2 Saturation ABG Base Excess 23.3 H ABG Hemoglobin 5.3 L ABG Oxyhemoglobin ABG Sodium ABG Potassium ABG Chloride ABG Glucose Oxyhemoglobin 93.8 L Sodium Potassium Chloride Carbon Dioxide BUN Creatinine Glucose POC Glucose 122 H 129 H Lactic Acid Calcium Magnesium Ferritin Total Bilirubin Direct Bilirubin AST ALT Alkaline Phosphatase Lactate Dehydrogenase C-Reactive Protein Total Protein Albumin Triglycerides Arterial Blood Glucose Arterial Blood Ionized Calcium Urine WBC (Auto) Coronavirus (PCR) SARS-CoV-2 IgG Ab Crossmatch 06/21/20 06/21/20 06/21/20 11:00 11:00 11:42 WBC 14.2 H RBC 1.85 L Hgb 6.2 L Hct 19.5 L* MCV 105 H MCH 34 H MCHC RDW 18.0 H Lymph % (Auto) Lymph # (Auto) Seg Neutrophils % Seg Neuts % (Manual) Lymphocytes % (Manual) Nucleated RBC % Seg Neutrophils # Seg Neutrophils # Man Lymphocytes # (Manual) Monocytes # (Manual) PT INR APTT D-Dimer ABG pH POC ABG pCO2 POC ABG pO2 ABG pO2 ABG HCO3 ABG O2 Saturation ABG Base Excess ABG Hemoglobin ABG Oxyhemoglobin ABG Sodium ABG Potassium ABG Chloride ABG Glucose Oxyhemoglobin Sodium 147 H Potassium Chloride Carbon Dioxide 51 H* BUN 31 H Creatinine 0.5 L Glucose 224 H POC Glucose 217 H Lactic Acid Calcium Magnesium Ferritin Total Bilirubin Direct Bilirubin AST ALT Alkaline Phosphatase Lactate Dehydrogenase C-Reactive Protein Total Protein Albumin Triglycerides Arterial Blood Glucose Arterial Blood Ionized Calcium Urine WBC (Auto) Coronavirus (PCR) SARS-CoV-2 IgG Ab Crossmatch 06/21/20 06/21/20 06/21/20 14:18 14:30 18:36 WBC RBC Hgb Hct MCV MCH MCHC RDW Lymph % (Auto) Lymph # (Auto) Seg Neutrophils % Seg Neuts % (Manual) Lymphocytes % (Manual) Nucleated RBC % Seg Neutrophils # Seg Neutrophils # Man Lymphocytes # (Manual) Monocytes # (Manual) PT 15.1 H INR 1.19 H APTT D-Dimer ABG pH POC ABG pCO2 POC ABG pO2 ABG pO2 ABG HCO3 ABG O2 Saturation ABG Base Excess ABG Hemoglobin ABG Oxyhemoglobin ABG Sodium ABG Potassium ABG Chloride ABG Glucose Oxyhemoglobin Sodium Potassium Chloride Carbon Dioxide BUN Creatinine Glucose POC Glucose 185 H Lactic Acid Calcium Magnesium Ferritin Total Bilirubin Direct Bilirubin AST ALT Alkaline Phosphatase Lactate Dehydrogenase C-Reactive Protein Total Protein Albumin Triglycerides Arterial Blood Glucose Arterial Blood Ionized Calcium Urine WBC (Auto) Coronavirus (PCR) SARS-CoV-2 IgG Ab Crossmatch See Detail 06/21/20 06/22/20 06/22/20 21:14 03:50 04:00 WBC RBC Hgb Hct MCV MCH MCHC RDW Lymph % (Auto) Lymph # (Auto) Seg Neutrophils % Seg Neuts % (Manual) Lymphocytes % (Manual) Nucleated RBC % Seg Neutrophils # Seg Neutrophils # Man Lymphocytes # (Manual) Monocytes # (Manual) PT INR APTT D-Dimer ABG pH 7.451 H POC ABG pCO2 POC ABG pO2 ABG pO2 ABG HCO3 47.5 H ABG O2 Saturation ABG Base Excess 22.0 H ABG Hemoglobin < 5.1 L ABG Oxyhemoglobin ABG Sodium ABG Potassium ABG Chloride ABG Glucose Oxyhemoglobin 94.1 L Sodium 149 H Potassium 3.5 L Chloride Carbon Dioxide 42 H* D BUN 34 H Creatinine 0.4 L Glucose 219 H POC Glucose 250 H Lactic Acid Calcium Magnesium Ferritin Total Bilirubin Direct Bilirubin AST ALT Alkaline Phosphatase Lactate Dehydrogenase C-Reactive Protein Total Protein Albumin Triglycerides Arterial Blood Glucose Arterial Blood Ionized Calcium Urine WBC (Auto) Coronavirus (PCR) SARS-CoV-2 IgG Ab Crossmatch 06/22/20 06/22/20 06/22/20 12:16 14:29 17:56 WBC RBC Hgb Hct MCV MCH MCHC RDW Lymph % (Auto) Lymph # (Auto) Seg Neutrophils % Seg Neuts % (Manual) Lymphocytes % (Manual) Nucleated RBC % Seg Neutrophils # Seg Neutrophils # Man Lymphocytes # (Manual) Monocytes # (Manual) PT 11.8 L INR APTT 23.5 L D-Dimer ABG pH POC ABG pCO2 POC ABG pO2 ABG pO2 ABG HCO3 ABG O2 Saturation ABG Base Excess ABG Hemoglobin ABG Oxyhemoglobin ABG Sodium ABG Potassium ABG Chloride ABG Glucose Oxyhemoglobin Sodium Potassium Chloride Carbon Dioxide BUN Creatinine Glucose POC Glucose 215 H 215 H Lactic Acid Calcium Magnesium Ferritin Total Bilirubin Direct Bilirubin AST ALT Alkaline Phosphatase Lactate Dehydrogenase C-Reactive Protein Total Protein Albumin Triglycerides Arterial Blood Glucose Arterial Blood Ionized Calcium Urine WBC (Auto) Coronavirus (PCR) SARS-CoV-2 IgG Ab Crossmatch 06/22/20 06/22/20 06/22/20 23:36 23:45 Unknown WBC 14.1 H RBC 2.70 L Hgb 8.9 L 8.9 L Hct 26.9 L 27.2 L D MCV 101 H MCH 33 H MCHC RDW 17.7 H Lymph % (Auto) Lymph # (Auto) Seg Neutrophils % Seg Neuts % (Manual) 92.0 H Lymphocytes % (Manual) 5.0 L Nucleated RBC % Seg Neutrophils # Seg Neutrophils # Man 13.0 H Lymphocytes # (Manual) 0.7 L Monocytes # (Manual) PT INR APTT D-Dimer ABG pH POC ABG pCO2 POC ABG pO2 ABG pO2 ABG HCO3 ABG O2 Saturation ABG Base Excess ABG Hemoglobin ABG Oxyhemoglobin ABG Sodium ABG Potassium ABG Chloride ABG Glucose Oxyhemoglobin Sodium Potassium Chloride Carbon Dioxide BUN Creatinine Glucose POC Glucose 208 H Lactic Acid Calcium Magnesium Ferritin Total Bilirubin Direct Bilirubin AST ALT Alkaline Phosphatase Lactate Dehydrogenase C-Reactive Protein Total Protein Albumin Triglycerides Arterial Blood Glucose Arterial Blood Ionized Calcium Urine WBC (Auto) Coronavirus (PCR) SARS-CoV-2 IgG Ab Crossmatch 06/23/20 06/23/20 06/23/20 05:17 05:19 06:50 WBC RBC Hgb Hct MCV MCH MCHC RDW Lymph % (Auto) Lymph # (Auto) Seg Neutrophils % Seg Neuts % (Manual) Lymphocytes % (Manual) Nucleated RBC % Seg Neutrophils # Seg Neutrophils # Man Lymphocytes # (Manual) Monocytes # (Manual) PT INR APTT D-Dimer ABG pH POC ABG pCO2 69.7 H POC ABG pO2 63.3 L ABG pO2 ABG HCO3 ABG O2 Saturation ABG Base Excess ABG Hemoglobin 10.1 L ABG Oxyhemoglobin ABG Sodium ABG Potassium 3.3 L ABG Chloride ABG Glucose 226 H Oxyhemoglobin Sodium Potassium 3.0 L Chloride Carbon Dioxide 41 H* BUN 26 H Creatinine 0.4 L Glucose 209 H POC Glucose 200 H Lactic Acid Calcium Magnesium Ferritin Total Bilirubin Direct Bilirubin AST ALT Alkaline Phosphatase Lactate Dehydrogenase C-Reactive Protein Total Protein Albumin 2.9 L Triglycerides Arterial Blood Glucose 226 H Arterial Blood Ionized Calcium Urine WBC (Auto) Coronavirus (PCR) SARS-CoV-2 IgG Ab Crossmatch 06/23/20 06/23/20 06/23/20 09:41 12:04 18:16 WBC RBC Hgb 9.1 L Hct 28.0 L MCV MCH MCHC RDW Lymph % (Auto) Lymph # (Auto) Seg Neutrophils % Seg Neuts % (Manual) Lymphocytes % (Manual) Nucleated RBC % Seg Neutrophils # Seg Neutrophils # Man Lymphocytes # (Manual) Monocytes # (Manual) PT INR APTT D-Dimer ABG pH POC ABG pCO2 POC ABG pO2 ABG pO2 ABG HCO3 ABG O2 Saturation ABG Base Excess ABG Hemoglobin ABG Oxyhemoglobin ABG Sodium ABG Potassium ABG Chloride ABG Glucose Oxyhemoglobin Sodium Potassium Chloride Carbon Dioxide BUN Creatinine Glucose POC Glucose 146 H 162 H Lactic Acid Calcium Magnesium Ferritin Total Bilirubin Direct Bilirubin AST ALT Alkaline Phosphatase Lactate Dehydrogenase C-Reactive Protein Total Protein Albumin Triglycerides Arterial Blood Glucose Arterial Blood Ionized Calcium Urine WBC (Auto) Coronavirus (PCR) SARS-CoV-2 IgG Ab Crossmatch 06/23/20 06/23/20 06/24/20 23:24 23:41 02:39 WBC RBC Hgb 8.2 L 8.8 L Hct 24.9 L 26.8 L MCV MCH MCHC RDW Lymph % (Auto) Lymph # (Auto) Seg Neutrophils % Seg Neuts % (Manual) Lymphocytes % (Manual) Nucleated RBC % Seg Neutrophils # Seg Neutrophils # Man Lymphocytes # (Manual) Monocytes # (Manual) PT INR APTT D-Dimer ABG pH POC ABG pCO2 POC ABG pO2 ABG pO2 ABG HCO3 ABG O2 Saturation ABG Base Excess ABG Hemoglobin ABG Oxyhemoglobin ABG Sodium ABG Potassium ABG Chloride ABG Glucose Oxyhemoglobin Sodium Potassium Chloride Carbon Dioxide BUN Creatinine Glucose POC Glucose 248 H Lactic Acid Calcium Magnesium Ferritin Total Bilirubin Direct Bilirubin AST ALT Alkaline Phosphatase Lactate Dehydrogenase C-Reactive Protein Total Protein Albumin Triglycerides Arterial Blood Glucose Arterial Blood Ionized Calcium Urine WBC (Auto) Coronavirus (PCR) SARS-CoV-2 IgG Ab Crossmatch 06/24/20 06/24/20 06/24/20 02:39 02:45 05:31 WBC RBC Hgb Hct MCV MCH MCHC RDW Lymph % (Auto) Lymph # (Auto) Seg Neutrophils % Seg Neuts % (Manual) Lymphocytes % (Manual) Nucleated RBC % Seg Neutrophils # Seg Neutrophils # Man Lymphocytes # (Manual) Monocytes # (Manual) PT INR APTT D-Dimer ABG pH POC ABG pCO2 66.9 H POC ABG pO2 109.7 H ABG pO2 ABG HCO3 ABG O2 Saturation ABG Base Excess ABG Hemoglobin 9.7 L ABG Oxyhemoglobin ABG Sodium 135.0 L ABG Potassium ABG Chloride 97.0 L ABG Glucose 277 H Oxyhemoglobin Sodium 136 L Potassium Chloride 95.0 L Carbon Dioxide 34 H D BUN 24 H Creatinine 0.3 L Glucose 260 H POC Glucose 164 H Lactic Acid Calcium Magnesium Ferritin Total Bilirubin Direct Bilirubin AST ALT Alkaline Phosphatase Lactate Dehydrogenase C-Reactive Protein Total Protein 5.2 L Albumin 2.6 L Triglycerides Arterial Blood Glucose 277 H Arterial Blood Ionized Calcium Urine WBC (Auto) Coronavirus (PCR) SARS-CoV-2 IgG Ab Crossmatch 06/24/20 11:49 WBC RBC Hgb Hct MCV MCH MCHC RDW Lymph % (Auto) Lymph # (Auto) Seg Neutrophils % Seg Neuts % (Manual) Lymphocytes % (Manual) Nucleated RBC % Seg Neutrophils # Seg Neutrophils # Man Lymphocytes # (Manual) Monocytes # (Manual) PT INR APTT D-Dimer ABG pH POC ABG pCO2 POC ABG pO2 ABG pO2 ABG HCO3 ABG O2 Saturation ABG Base Excess ABG Hemoglobin ABG Oxyhemoglobin ABG Sodium ABG Potassium ABG Chloride ABG Glucose Oxyhemoglobin Sodium Potassium Chloride Carbon Dioxide BUN Creatinine Glucose POC Glucose 198 H Lactic Acid Calcium Magnesium Ferritin Total Bilirubin Direct Bilirubin AST ALT Alkaline Phosphatase Lactate Dehydrogenase C-Reactive Protein Total Protein Albumin Triglycerides Arterial Blood Glucose Arterial Blood Ionized Calcium Urine WBC (Auto) Coronavirus (PCR) SARS-CoV-2 IgG Ab Crossmatch Chest x-ray: pending Allied health notes reviewed: nursing
--- NOTE | 2020-06-24 15:08 | Progress Note ---
Assessment and Plan Assessment and plan: - Acute hypoxemic respiratory failure; Patient intubated and on vent support --Severe COVID-19 bilateral pneumonia Coronavirus protocol: IV steroid therapy, completed remdesivir, isolation precautions, contact precautions, prone positioning while in bed, pulmonary toilet. ID following SARS CoV-2 IgG positive patient is NOT a candidate for COVID convalescent plasma --Severe sepsis/septic shock, due to COVID 19 PNA cont pressors as needed -- Acute kidney injury (SEN) , likely vasomotor nephropathy Resolved, IV fluids, avoid nephrotoxins --Acute on chronic anemia Guaiac test positive GI evaluation PPIs Continue to monitor -- Elevated liver function tests Suspected secondary to alcoholic liver disease. Supportive care, alcohol cessation, patient counseled. --Colonic distention GI evaluation -recommend stool softeners Serial abdominal x-rays Monitor electrolytes and replete -- DVT prophylaxis On therapeutic Lovenox 06/16/2020. Patient currently on mechanical ventilation with AC mode rate 30, tidal volume 500, FiO2 70% and PEEP of 16. Continue anticoagulation with Lovenox 110 milligrams subcu every 12 hours. Wean sedation of fentanyl/Versed as needed. Currently with IV steroids of Solu-Medrol 40 mg IV every 12 hours. Patient will likely need tracheostomy per pulmonary recommendations. Continue pressors to maintain MAP > 65. 06/17/2020. Patient currently on mechanical ventilation with AC mode rate 30, tidal volume 500, FiO2 65% and PEEP of 16. Continue anticoagulation with Lovenox 110 milligrams subcu every 12 hours. Wean sedation of fentanyl/Versed as needed. Currently with IV steroids of Solu-Medrol 40 mg IV every 12 hours. Patient will likely need tracheostomy per pulmonary recommendations. 06/18/2020. Patient currently on mechanical ventilation with AC mode rate 30, tidal volume 500, FiO2 70% and PEEP of 16. Continue Lovenox for anticoagulation and fentanyl/Versed for sedation. Wean steroids per pulmonary. CIWA protocol initiated for history of EtOH dependence 06/19/2020. Patient currently on mechanical ventilation with AC mode rate 30, tidal volume 500, FiO2 60% and PEEP of 16. Wean FiO2 as tolerated per protocol. Continue Lovenox for anticoagulation and fentanyl/Versed for sedation. Wean steroids per pulmonary. CIWA protocol initiated for history of EtOH dependence 06/20/2020. Patient currently on mechanical ventilation with AC mode rate 30, tidal volume 500, FiO2 60% and PEEP of 16. Wean FiO2 as tolerated, SBT per protocol. Continue Lovenox for anticoagulation and fentanyl/Versed for sedation. Wean steroids per pulmonary. Continue pressors to maintain MAP > 65 mmHg. Patient remains on ETT. Consider tracheostomy placement once oxygenation is better per pulmonary. CIWA protocol initiated for history of EtOH dependence. 06/21/2020. Patient with a small apical pneumothorax discovered yesterday. General surgery consulted and consider placing chest tube. Follow-up serial chest x-ray patient currently on mechanical ventilation with AC mode rate 30, t idal volume 500, FiO2 60% and PEEP of 16. Wean FiO2 as tolerated, SBT per protocol. Continue Lovenox for anticoagulation and fentanyl/Versed for sedation. Wean steroids per pulmonary. Continue pressors to maintain MAP > 65 mmHg. Patient remains on ETT. Consider tracheostomy placement once oxygenation is better per pulmonary. CIWA protocol initiated for history of EtOH dependence. 06/22. Status post right chest tube placement yesterday. Remains mechanically ventilated on pressors. Examination today shows slightly distended abdomen. KUB ordered. Awaiting stool guaiac. Plan to get a GI evaluation. 06/23. Has colonic distention on the x-ray. Discussed with GI-advised stool softeners for now and close monitoring. No indication for colonic decompression at this time. Guaiac test is positive. No emergent indication for endoscopy at this point as per GI. Continue to monitor hemoglobin. 06/24. Remains intubated. On pressors. GI following for positive guaiac stool and anemia, and colonic distention. The high probability of a clinically significant, sudden or life threatening deterioration of the [respiratory] system(s) required my full and direct attention, intervention and personal management. The aggregate critical care time was [31] minutes. This time is in addition to time spent performing reported procedures but includes the following: [x] Data Review and interpretation [x] Patient assessment and monitoring of vital signs [x] Documentation [x] Medication orders and management History Interval history: Sedated and intubated Hospitalist Physical - Physical exam Narrative exam: VITAL SIGNS: Reviewed. GENERAL: Sedated and intubated HEAD: No signs of head trauma. MOUTH: Oropharynx is normal. NECK: No adenopathy, no JVD. CHEST: Chest with diminished breath sounds bilaterally. No wheezes, rales, or rhonchi. CARDIAC: normal S1 and S2, without murmurs, gallops, or rubs. ABDOMEN: Slightly distended, bowel sounds positive MUSCULOSKELETAL: No edema NEUROLOGIC EXAM: Sedated and intubated - Constitutional Vitals: Temp Pulse Resp BP Pulse Ox 98.9 F 100 H 30 H 94/59 99 06/24/20 08:00 06/24/20 13:30 06/24/20 13:30 06/24/20 13:30 06/24/20 13:30 Results - Labs CBC & Chem 7: 06/24/20 02:39 06/24/20 02:39 Labs: Laboratory Last Values WBC 14.1 K/mm3 (4.5-11.0) H 06/22/20 Unknown RBC 2.70 M/mm3 (3.65-5.03) L 06/22/20 Unknown Hgb 8.8 gm/dl (11.8-15.2) L 06/24/20 02:39 Hct 26.8 % (35.5-45.6) L 06/24/20 02:39 MCV 101 fl (84-94) H 06/22/20 Unknown MCH 33 pg (28-32) H 06/22/20 Unknown MCHC 33 % (32-34) 06/22/20 Unknown RDW 17.7 % (13.2-15.2) H 06/22/20 Unknown Plt Count 262 K/mm3 (140-440) 06/24/20 02:39 Lymph % (Auto) 4.4 % (13.4-35.0) L 06/16/20 04:00 Banks % (Auto) 3.6 % (0.0-7.3) 06/16/20 04:00 Eos % (Auto) 0.0 % (0.0-4.3) 06/16/20 04:00 Baso % (Auto) 0.3 % (0.0-1.8) 06/16/20 04:00 Lymph # (Auto) 0.6 K/mm3 (1.2-5.4) L 06/16/20 04:00 Banks # (Auto) 0.5 K/mm3 (0.0-0.8) 06/16/20 04:00 Eos # (Auto) 0.0 K/mm3 (0.0-0.4) 06/16/20 04:00 Baso # (Auto) 0.0 K/mm3 (0.0-0.1) 06/16/20 04:00 Add Manual Diff Complete 06/22/20 Unknown Total Counted 100 06/22/20 Unknown Seg Neutrophils % Electrician Elevator Maintenance 06/16/20 04:00 Seg Neuts % (Manual) 92.0 % (40.0-70.0) H 06/22/20 Unknown Band Neutrophils % 0 % 06/15/20 Unknown Lymphocytes % (Manual) 5.0 % (13.4-35.0) L 06/22/20 Unknown Reactive Lymphs % (Man) 0 % 06/15/20 Unknown Monocytes % (Manual) 3.0 % (0.0-7.3) 06/22/20 Unknown Eosinophils % (Manual) 0 % (0.0-4.3) 06/15/20 Unknown Basophils % (Manual) 0 % (0.0-1.8) 06/15/20 Unknown Metamyelocytes % 3.0 % 06/15/20 Unknown Myelocytes % 0 % 06/15/20 Unknown Promyelocytes % 0 % 06/15/20 Unknown Blast Cells % 0 % 06/15/20 Unknown Nucleated RBC % Not Reportable 06/22/20 Unknown Seg Neutrophils # 12.7 K/mm3 (1.8-7.7) H 06/16/20 04:00 Seg Neutrophils # Man 13.0 K/mm3 (1.8-7.7) H 06/22/20 Unknown Band Neutrophils # 0.0 K/mm3 06/22/20 Unknown Lymphocytes # (Manual) 0.7 K/mm3 (1.2-5.4) L 06/22/20 Unknown Abs React Lymphs (Man) 0.0 K/mm3 06/22/20 Unknown Monocytes # (Manual) 0.4 K/mm3 (0.0-0.8) 06/22/20 Unknown Eosinophils # (Manual) 0.0 K/mm3 (0.0-0.4) 06/22/20 Unknown Basophils # (Manual) 0.0 K/mm3 (0.0-0.1) 06/22/20 Unknown Metamyelocytes # 0.0 K/mm3 06/22/20 Unknown Myelocytes # 0.0 K/mm3 06/22/20 Unknown Promyelocytes # 0.0 K/mm3 06/22/20 Unknown Blast Cells # 0.0 K/mm3 06/22/20 Unknown WBC Morphology Not Reportable 06/22/20 Unknown Hypersegmented Neuts Not Reportable 06/22/20 Unknown Hyposegmented Neuts Not Reportable 06/22/20 Unknown Hypogranular Neuts Not Reportable 06/22/20 Unknown Smudge Cells Not Reportable 06/22/20 Unknown Toxic Granulation Not Reportable 06/22/20 Unknown Toxic Vacuolation Not Reportable 06/22/20 Unknown Dohle Bodies Not Reportable 06/22/20 Unknown Pelger-Huet Anomaly Not Reportable 06/22/20 Unknown Jason Rods Not Reportable 06/22/20 Unknown Platelet Estimate Consistent w auto 06/22/20 Unknown Clumped Platelets Not Reportable 06/22/20 Unknown Plt Clumps, EDTA Not Reportable 06/22/20 Unknown Large Platelets Not Reportable 06/22/20 Unknown Giant Platelets Not Reportable 06/22/20 Unknown Platelet Satelliting Not Reportable 06/22/20 Unknown Plt Morphology Comment Not Reportable 06/22/20 Unknown RBC Morphology Not Reportable 06/22/20 Unknown Dimorphic RBCs Not Reportable 06/22/20 Unknown Polychromasia Few 06/22/20 Unknown Hypochromasia Not Reportable 06/22/20 Unknown Poikilocytosis Not Reportable 06/22/20 Unknown Anisocytosis Few 06/22/20 Unknown Microcytosis Not Reportable 06/22/20 Unknown Macrocytosis Few 06/22/20 Unknown Spherocytes Not Reportable 06/22/20 Unknown Pappenheimer Bodies Not Reportable 06/22/20 Unknown Sickle Cells Not Reportable 06/22/20 Unknown Target Cells Not Reportable 06/22/20 Unknown Tear Drop Cells Not Reportable 06/22/20 Unknown Ovalocytes Not Reportable 06/22/20 Unknown Stomatocytes Few 06/14/20 07:15 Helmet Cells Not Reportable 06/22/20 Unknown [place] Bodies Not Reportable 06/22/20 Unknown [place] Rings Not Reportable 06/22/20 Unknown [place] Cells Not Reportable 06/22/20 Unknown Bite Cells Not Reportable 06/22/20 Unknown Crenated Cell Not Reportable 06/22/20 Unknown Elliptocytes Not Reportable 06/22/20 Unknown Acanthocytes (Spur) Not Reportable 06/22/20 Unknown Rouleaux Not Reportable 06/22/20 Unknown Hemoglobin C Crystals Not Reportable 06/22/20 Unknown Schistocytes Not Reportable 06/22/20 Unknown Malaria parasites Not Reportable 06/22/20 Unknown Josue Bodies Not Reportable 06/22/20 Unknown Hem Pathologist Commnt No 06/22/20 Unknown PT 11.8 Sec. (12.2-14.9) L 06/22/20 14:29 INR 0.88 (0.87-1.13) 06/22/20 14:29 APTT 23.5 Sec. (24.2-36.6) L 06/22/20 14:29 D-Dimer 1887.82 ng/mlDDU (0-234) H 05/20/20 08:16 Heparin Anti-Xa Level 0.47 U.I./ml (0.3-0.7) 06/24/20 02:39 ABG pH 7.359 (7.320-7.450) 06/24/20 02:45 POC ABG pCO2 66.9 mmHg (32.0-48.0) H 06/24/20 02:45 ABG pCO2 69.8 mm Hg 06/22/20 03:50 POC ABG pO2 109.7 mmHg (83-108) H 06/24/20 02:45 ABG pO2 89.6 mm Hg (80.0-90.0) 06/22/20 03:50 POC ABG HCO3 36.9 06/24/20 02:45 ABG HCO3 47.5 mmol/L (20.0-26.0) H 06/22/20 03:50 ABG O2 Saturation 97.1 % (95.0-99.0) 06/22/20 03:50 ABG O2 Content 6.0 (0.0-44) 06/22/20 03:50 POC ABG Base Excess 9.7 06/24/20 02:45 ABG Base Excess 22.0 mmol/L (-2.0-3.0) H 06/22/20 03:50 ABG Hemoglobin 9.7 (12.0-17.5) L 06/24/20 02:45 ABG Oxyhemoglobin 96.6 (94-98) 06/24/20 02:45 ABG Carboxyhemoglobin 2.6 % (0.0-5.0) 06/22/20 03:50 ABG Methemoglobin 0.3 (0.0-1.5) 06/24/20 02:45 ABG Sodium 135.0 mmol/L (136.0-145.0) L 06/24/20 02:45 ABG Potassium 3.4 mmol/L (3.40-4.50) 06/24/20 02:45 ABG Chloride 97.0 mmol/L (98-107) L 06/24/20 02:45 ABG Glucose 277 mg/dL (65-95) H 06/24/20 02:45 Oxyhemoglobin 94.1 % (95.0-99.0) L 06/22/20 03:50 Carboxyhemoglobin 1.1 (0.5-1.5) 06/24/20 02:45 FiO2 60 06/24/20 02:45 Sodium 136 mmol/L (137-145) L 06/24/20 02:39 Potassium 3.8 mmol/L (3.6-5.0) D 06/24/20 02:39 Chloride 95.0 mmol/L (98-107) L 06/24/20 02:39 Carbon Dioxide 34 mmol/L (22-30) H D 06/24/20 02:39 Anion Gap 11 mmol/L 06/24/20 02:39 BUN 24 mg/dL (9-20) H 06/24/20 02:39 Creatinine 0.3 mg/dL (0.8-1.3) L 06/24/20 02:39 Estimated GFR > 60 ml/min 06/24/20 02:39 BUN/Creatinine Ratio 80 % 06/24/20 02:39 Glucose 260 mg/dL (75-100) H 06/24/20 02:39 POC Glucose 198 mg/dL (70-105) H 06/24/20 11:49 Lactic Acid 1.80 mmol/L (0.7-2.0) 05/09/20 Unknown Calcium 8.6 mg/dL (8.4-10.2) 06/24/20 02:39 Phosphorus 3.10 mg/dL (2.5-4.5) 06/15/20 04:00 Magnesium 1.90 mg/dL (1.7-2.3) 06/15/20 04:00 Ferritin 1496.0 ng/mL (30.0-300.0) H 06/14/20 11:50 Total Bilirubin 0.60 mg/dL (0.1-1.2) 06/24/20 02:39 Direct Bilirubin 0.6 mg/dL (0-0.2) H 05/11/20 07:30 Indirect Bilirubin 0.9 mg/dL 05/11/20 07:30 AST 19 units/L (5-40) 06/24/20 02:39 ALT 24 units/L (7-56) 06/24/20 02:39 Alkaline Phosphatase 71 units/L (35-129) 06/24/20 02:39 Lactate Dehydrogenase 705 units/L (91-180) H 05/20/20 08:16 C-Reactive Protein 3.10 mg/dL (0.00-1.30) H 05/20/20 08:16 Total Protein 5.2 g/dL (6.3-8.2) L 06/24/20 02:39 Albumin 2.6 g/dL (3.9-5) L 06/24/20 02:39 Albumin/Globulin Ratio 1.0 % 06/24/20 02:39 Triglycerides 152 mg/dL (2-149) H 06/15/20 05:00 Procalcitonin 0.94 ng/mL (<0.15) 06/14/20 11:50 Arterial Blood Glucose 277 mg/dL (65-95) H 06/24/20 02:45 Arterial Blood Ionized Calcium 4.8 mg/dL (4.6-5.3) 06/24/20 02:45 Urine Color Fauzia (Yellow) 05/10/20 Unknown Urine Turbidity Clear (Clear) 05/10/20 Unknown Urine pH 5.0 (5.0-7.0) 05/10/20 Unknown Ur Specific [place] 1.019 (1.003-1.030) 05/10/20 Unknown Urine Protein 100 mg/dl mg/dL (Negative) 05/10/20 Unknown Urine Glucose (UA) Neg mg/dL (Negative) 05/10/20 Unknown Urine Ketones Neg mg/dL (Negative) 05/10/20 Unknown Urine Blood Lg (Negative) 05/10/20 Unknown Urine Nitrite Neg (Negative) 05/10/20 Unknown Urine Bilirubin Neg (Negative) 05/10/20 Unknown Urine Urobilinogen 2.0 mg/dL (<2.0) 05/10/20 Unknown Ur Leukocyte Esterase Neg (Negative) 05/10/20 Unknown Urine WBC (Auto) 11.0 /HPF (0.0-6.0) H 05/10/20 Unknown Urine RBC (Auto) 2.0 /HPF (0.0-6.0) 05/10/20 Unknown U Epithel Cells (Auto) 1.0 /HPF (0-13.0) 05/10/20 Unknown Urine Bacteria (Auto) 1+ /HPF (Negative) 05/10/20 Unknown Urine Mucus Few /HPF 05/10/20 Unknown Plasma/Serum Alcohol < 0.01 % (0-0.07) 05/09/20 14:20 Coronavirus (PCR) Positive (Negative) A 05/10/20 Unknown SARS-CoV-2 IgG Ab Reactive (NonReactive) A 05/11/20 07:30 Blood Type B POSITIVE 06/21/20 14:18 Antibody Screen Negative 06/21/20 14:18 Crossmatch See Detail 06/21/20 14:18 - Diagnostic Impressions Diagnostic Impressions: Echocardiogram 05/20/20 13:02 Transthoracic Echocardiogram Indication: CHF BP: 97/73 Conclusions *The study quality is technically very difficult and limited. *The left ventricular chamber size, wall thickness and systolic function are within normal limits. There are no wall motion abnormalities observed. Ejection fraction is normal. *The estimated ejection fraction is 60-65%. *The pericardium appears normal. Findings Procedure Info: The study quality is technically difficult. Left Ventricle: The left ventricular chamber size, wall thickness and systolic function are within normal limits. There are no wall motion abnormalities observed. Ejection fraction is normal. The estimated ejection fraction is 60-65%. Abnormal left ventricular diastolic filling is observed, consistent with impaired relaxation. Left Atrium: The left atrium is normal in size with no visual thrombus identified. Right Ventricle: The right ventricle is not well visualized. Right Atrium: The right atrium is not well visualized. Aortic Valve: The aortic valve is trileaflet. The leaflets are thin with normal excursion. There is no aortic stenosis or regurgitation present. Mitral Valve: The mitral valve appears normal in structure and function. Tricuspid Valve: The tricuspid valve appears normal in structure and function. Unable to estimate the right ventricular systolic pressure. Pulmonic Valve: The pulmonic valve is not well visualized. There is no evidence of pulmonic regurgitation. There is no pulmonic stenosis. Pericardium: The pericardium appears normal. Pulmonary Artery: The main pulmonary artery is not well visualized. Venous: The inferior vena cava appears normal in size. Measurements Chambers 2D Name Value Normal Range IVSd (2D) 0.83 cm (0.6 - 1.1) LVPWd (2D) 0.83 cm (0.6 - 1.1) LVIDd (2D) 3.88 cm (3.7 - 5.6) LVIDs (2D) 2.46 cm (2 - 3.8) LV FS (2D) 36.52 % - EF Teichholz (2D) 66.97 % - Ao root diameter (2D) 3.47 cm (2 - 3.7) Volumes/Mass Name Value Normal Range LA ESV SP 4CH (A/L) 22.4 ml - LA ESV SP 2CH (A/L) 22.89 ml - LA ESV BP (A/L) 23.06 ml - LA ESV SP 4CH (MOD) 21.09 ml - LA ESV SP 2CH (MOD) 22.44 ml - Diastolic/Systolic Function Name Value Normal Range MV E-wave Vmax 0.48 m/sec - MV deceleration time 156.3 msec - MV A-wave Vmax 0.59 m/sec - MV E:A ratio 0.81 ratio - Aortic Valve Name Value Normal Range AV Vmax 0.97 m/sec - AV VTI 14.49 cm - AV peak gradient 3.73 mmHg - AV mean gradient 1.89 mmHg - LVOT diameter 2.09 cm - LVOT Vmax 0.72 m/sec - LVOT VTI 10.21 cm - LVOT peak gradient 2.05 mmHg - LVOT mean gradient 1.03 mmHg - SV LVOT 35.17 ml - INNA (continuity Vmax) 2.55 cm2 - INNA (continuity VTI) 2.43 cm2 - Tricuspid Valve Name Value Normal Range TV E-wave Vmax 0.37 m/sec - Pulmonic Valve/Qp:Qs Name Value Normal Range PV Vmax 0.72 m/sec - PV peak gradient 2.06 mmHg - RVOT Vmax 0.85 m/sec - RVOT VTI 9.89 cm - RVOT peak gradient 2.9 mmHg - PV acceleration time 72.31 msec - Cantor/IV: Voiding Method Condom Catheter IV Catheter Type [Right Upper PICC Line arm] IV Catheter Type [Right CVL Internal Jugular] IV Catheter Type [Right Peripheral IV Forearm] IV Catheter Type [Left Forearm Peripheral IV ] IV Catheter Type [Left Wrist] INT / Saline Lock IV Catheter Type [Right Hand] INT / Saline Lock IV Catheter Type [Left Hand] INT / Saline Lock IV Catheter Type [Left Peripheral IV Antecubital] Active Medications - Current Medications Current Medications: Generic Name Dose Route Start Last Admin Trade Name Freq PRN Reason Stop Dose Admin Acetaminophen 650 mg 06/14/20 10:07 06/21/20 20:21 Tylenol FEEDTUBE 650 mg Q4H PRN Administration Pain, Mild (1-3) Alprazolam 0.25 mg 05/20/20 17:53 06/24/20 06:35 Alprazolam 0.25 Mg Tab PO 0.25 mg Q8H PRN Administration Anxiety Lipase/Protease/Amylase 1 each 05/22/20 13:01 Lipase 10,500/Protease 25,000/Amylase 43,750 (Units) Dr Newell FEEDTUBE PRN PRN For Clogged Feeding Tube Docusate Sodium 100 mg 05/28/20 14:00 06/24/20 09:47 Colace PO 100 mg BID DESIRE Administration Fentanyl 50 mcg 06/22/20 09:48 Fentanyl 100 Mcg/2 Ml Inj IV Q10MIN PRN ANALGESIA Folic Acid 1 mg 05/09/20 15:36 06/24/20 09:47 Folvite PO 1 mg QDAY DESIRE Administration Heparin Sodium (Porcine) 4,300 unit 06/22/20 12:48 Heparin 10,000 Units/10 Ml Vial 40 unit/kg (4300 unit) IV Q6H PRN Anti-Xa Assay < 0.1 units/ml Hydrophilic Ointment 1 applic 05/21/20 20:33 Lip Therapy Vaseline TP Q2HR PRN Dry Lips Midazolam HCl 100 mg/ Sodium 100 mls @ 2 mls/hr 06/02/20 14:00 06/24/20 08:43 Chloride IV 5 mg/hr TITR DESIRE 5 mls/hr Administration Protocol 2 MG/HR Norepinephrine 4 mg in 250 mls @ 7.5 mls/hr 06/04/20 16:00 06/24/20 13:47 Levophed Drip 4 Mg/Ns 250 Ml IV 6 mcg/min TITR DESIRE 22.5 mls/hr Administration Protocol 2 MCG/MIN Propofol 500 mg in 50 mls @ 3.309 mls/hr 06/08/20 11:00 06/24/20 11:55 Propofol IV 10 mcg/kg/min TITR DESIRE 6.618 mls/hr Administration Protocol 5 MCG/KG/MIN Fentanyl Citrate 2,000 mcg in 100 mls @ 5.32 mls/hr 06/09/20 14:00 06/24/20 11:55 Fentanyl Drip Premix IV 4 mcg/kg/hr TITR DESIRE 21.28 mls/hr Administration Protocol 1 MCG/KG/HR Vasopressin 20 unit/ Sodium 101 mls @ 9.09 mls/hr 06/09/20 18:00 Chloride IV TITR DESIRE Protocol 0.03 UNITS/MIN Heparin Sodium/Sodium Chloride 25,000 unit in 500 mls @ 30 mls/hr 06/22/20 13:00 06/24/20 02:47 Heparin/ 0.45% Nacl-25,000 Unit/500 Ml IV 1,500 units/hr TITR DESIRE 30 mls/hr Administration Protocol 1,500 UNITS/HR Insulin Glargine 20 units 06/18/20 22:00 06/23/20 21:32 Insulin Glargine 100 Units/Ml SUB-Q 20 units [facility] Administration Insulin Human Lispro 0 unit 05/29/20 14:00 06/24/20 11:56 Humalog SUB-Q 3 unit Q6H [facility] Administration Protocol Methylprednisolone Sodium Succinate 40 mg 05/20/20 18:00 06/24/20 06:35 Methylprednisolone Sod Succinate 40 Mg/1 Ml Inj IV 40 mg Q12H [facility] Administration Multi-Ingred Cream/Lotion/Oil/Oint 1 applic 05/21/20 20:33 Mineral Oil/Petrolatum, White Ophth Oint 3.5 Gm OU Q4HR PRN Dry Eye(s) Pantoprazole Sodium 40 mg 06/23/20 10:00 06/24/20 09:47 Pantoprazole 40 Mg Inj IV 40 mg QDAY DESIRE Administration Phenobarbital 20 mg 06/18/20 14:00 06/24/20 13:47 Phenobarbital 20 Mg/5 Ml Oral Liqd FEEDTUBE 20 mg Q8HR DESIRE Administration Polyethylene Glycol 17 gm 05/28/20 22:00 06/23/20 21:32 Miralax 3350 PO 17 gm QHS DESIRE Administration Quetiapine Fumarate 300 mg 06/10/20 22:00 06/24/20 09:47 Seroquel PO 300 mg BID DESIRE Administration Senna 17.2 mg 06/07/20 10:00 06/24/20 09:47 Senokot PO 17.2 mg BID DESIRE Administration Simethicone 160 mg 06/22/20 13:00 06/24/20 13:47 Simethicone 80 Mg Chew Tab PO 06/27/20 07:01 160 mg Q6H DESIRE Administration Simple Syrup 15 ml 05/22/20 13:01 Simple Syrup 15 Ml FEEDTUBE PRN PRN Hypoglycemia Simple Syrup 30 ml 05/22/20 13:01 Simple Syrup 15 Ml FEEDTUBE PRN PRN Hypoglycemia Sodium Bicarbonate 325 mg 05/22/20 13:01 Sodium Bicarbonate 325 Mg Tab FEEDTUBE PRN PRN For Clogged Feeding Tube Sodium Chloride 10 ml 05/09/20 22:00 06/24/20 09:47 Sodium Chloride Flush Syringe 10 Ml IV 10 ml BID DESIRE Administration Nutrition/Malnutrition Assess - Dietary Evaluation Nutrition/Malnutrition Findings: Nutrition Notes Start: 05/17/20 14:10 Freq: Status: Active Protocol: Document 06/24/20 12:19 AB (Rec: 06/24/20 12:28 AB [id number]) Co-Sign 06/24/20 12:19 LP Nutrition Notes Initial or Follow up Reassessment Current Diagnosis Sepsis,Respiratory Failure Other Pertinent Diagnosis Bilat pneu, COVID-19 (+), EtOH dependence Current Diet Vital HP at 65 ml/hr (goal rate) Labs/Tests Na 136 BUN 24 Cr 0.3 POC BG 164 Pertinent Medications Propofol 3.309 ml/hr (87 kcal) Height 6 ft Weight 108 kg [place] Body Weight (kg) 80.90 BMI 32.3 Weight Status Obese Subjective/Other Information F/U for TF tolerance and BMs. Per nurse notes, pt had 3 loose BMs 06/23. Per RN, TF running at goal. TF was held d /t abdominal distention but GI wants to keep TF running. Percent of energy/protein needs met: 86%/84% Burn Absent Trauma Absent GI Symptoms Diarrhea Current % PO Negligible Minimum of two criteria No physical signs of malnutrition #1 Nutrition Diagnosis Inadequate oral intake Diagnosis Progress(for reassessment Continues documentation) Is patient on ventilator? Yes Is Patient Ambulatory and/or Out of Bed No REE-([facility]-confined to bed) 2371.200 Kcal/Kg value to use for calculation 17 Approximate Energy Requirements Using 1836 kcal/Kg Calculation Used for Recommendations Kcal/kg Additional Notes Pro needs >2g/kg IBW: at least 162g/day Fluid needs 1ml/kcal Nutrition Intervention Change Diet Order: Continue TF Nutrition Support: Vital HP at 65ml/hr with 50ml water flush q4h. Kcal 1,560 Protein (gm) 136 Fluid (mL) 1,304 Goal #1 TF tolerance Goal #2 TF (at goal rate) to meet at least 75% energy and pro needs Anticipated Discharge Needs: Unable to identify at this time Follow-Up By: 06/25/20 Additional Comments F/U TF tolerance
[2020-06-24 20:19] LABS: Hematocrit 26.5 % (35.5-45.6); Hemoglobin 8.9 gm/dl (11.8-15.2)
[2020-06-24] MEDS: INSULIN GLARGINE 100 UNITS/ML SUB-Q SCH (22:40)
[2020-06-24] MEDS: POLYETHYLENE GLYCOL 3350 17 GM POWDER PO SCH (22:41)
[2020-06-25] MEDS: INSULIN LISPRO 100 UNIT/ML VIAL 3 mL SUB-Q SCH ×5 (00:44→23:56)
[2020-06-25] MEDS: SIMETHICONE 80 MG CHEW TAB PO SCH ×4 (00:58→20:54)
[2020-06-25] MEDS: fentaNYL DRIP Premix 2,000 MCG/100 ML BAG IV SCH ×4 (01:39→15:11)
[2020-06-25 02:52] LABS: Alanine Aminotransferase 27 units/L (7-56); Albumin 2.9 g/dL (3.9-5); Blood Urea Nitrogen 16 mg/dL (9-20); Hemolysis Index 50
[2020-06-25 02:56] LABS: BUN/Creatinine Ratio 53
[2020-06-25] MEDS: ALPRAZolam 0.25 MG TAB PO PRN (04:11)
[2020-06-25] MEDS: methylPREDNISolone Sod Succinate 40 MG/1 ML INJ IV SCH ×2 (05:06→20:54)
[2020-06-25] MEDS: MIDAZOLAM 100 MG in SODIUM CHLORIDE 0.9% 80 ML IV SCH ×2 (05:06→21:50)
[2020-06-25] MEDS: PHENobarbital 20 MG/5 ML ORAL LIQD FEEDTUBE SCH ×3 (05:43→21:51)
[2020-06-25] MEDS: SENNOSIDES 8.6 MG TAB PO SCH ×2 (09:14→21:51)
[2020-06-25] MEDS: PANTOPRAZOLE 40 MG INJ IV SCH (09:14)
[2020-06-25] MEDS: FOLIC ACID 1 MG TAB PO SCH (09:14)
[2020-06-25] MEDS: QUEtiapine 100 MG TAB PO SCH ×2 (09:16→21:51)
[2020-06-25] MEDS: DOCUSATE SODIUM 100 MG/10 ML ORAL LIQD PO SCH ×2 (09:17→21:50)
[2020-06-25] MEDS: NORepinephrine/NS 4 MG-250 ML 4 MG/250 ML BAG IV SCH ×2 (10:40→18:47)
[2020-06-25] MEDS: HEPARIN/ 0.45% NACL DRIP 25,000 UNIT/500 ML BAG IV SCH (10:41)
--- NOTE | 2020-06-25 13:11 | Progress Note ---
Assessment and Plan Acute hypoxemic respiratory failure due to COVID-19 Severe COVID infection Severe Sepsis Bilateral pneumonia Acute kidney injury (SEN) with acute tubular necrosis (ATN)-improving h/o Alcohol dependence Elevated liver function tests probably secondary COVID Continue to wean supplemental oxygen for O2 sats>90% Continue lung protective strategies Wean vasopressor support as tolerated to keep MAP>65 Monitor Triglycerides while on Propofol. CXR, ABG as indicated - VAP bundle addressed, aspiration precautions HOB >40 - Continue lung protective strategies, permissive hypercapnic acceptable. - continue bronchodilators with pulmonary hygiene per RT - wean per pulmonary driven protocols otherwise - accuchecks with glycemic control per SSI (While critically ill target blood glucose of 140-180 mg/dL; avoid hypoglycemia) - continue enteral nutritional support at goal rate as tolerated - Prone positioning as tolerated and indicated - Monitor liver function test , avoid hepatotoxic agents - Avoid nephrotoxins, renally dose all medications, conservative fluid management - continue to avoid benzodiazepines, reduce the possibility of delirium - prn analgesia per CPOT score - Maintenance of sleep-wake cycle, avoid delirium - continue to avoid benzodiazepines, reduce the possibility of delirium - aspiration precautions -Stress ulcer prophylaxis - PT/OT/ROM exercises - continue mobility protocols for pressure ulcer prevention -CXR, ABG as clinically indicated -CBC, BMP as clinically indicated -Supportive transfusions to keep HgB >7g/dL - Monitor hemodynamics closely - continue other care per attending / other consultants COVID SPECIFIC INTERVENTIONS - SARS CoV-2 IgG positive patient is NOT a candidate for COVID convalescent plasma -Completed remdesivir -Steroids -Monitor inflammatory markers per facility protocol- ferritin, Ddimer, CRP, LDH -Continue anticoagulation per System Protocol based on d-dimer -Continue contact and airborne isolation .... Re-evaluate in am & prn CONDITION: CRITICAL PROGNOSIS: GUARDED CODE STATUS: FULL CODE The high probability of a clinically significant, sudden or life-threatening deterioration of the [respiratory, cardiovascular, hematologic & neurologic] system(s) required my full and direct attention, intervention and personal management. The aggregate critical care time was [32] minutes without overlap. Time includes spent on; [x] Data Review and interpretation [x] Patient assessment and monitoring of vital signs [x] Documentation [x] Medication orders and management Subjective Date of service: 06/25/20 Principal diagnosis: Ac hypoxemic resp failure; COVID-19; Severe Sepsis; Shaggy PNA; Alcohol Abuse Interval history: Patient is seen today for: Acute hypoxemic respiratory failure due to COVID-19; Severe Sepsis; Bilateral pneumonia; Alcohol dependence; Elevated liver function tests Seen and examined at bedside; 24hour events reviewed; nursing and respiratory care staff consulted; no adverse overnight events reported to me; resting in bed; remains on MVS with decreasing ventilatory requirements, FiO2 at 50% PEEP +12 - had required increasing FIO2 to 100%, back down to 50% once Propofol was added to sedation. Afebrile in the last 24 hours, hyperglycemia Remains on sedation- Midazolam and Fentanyl and Propofol Currently on 8mcg of Norepinephrine for sedation induced hypotension Has a stage 2 sacral decubitus, RUext PICC Objective Vital Signs - 12hr 06/25/20 06/25/20 06/25/20 01:16 01:30 01:46 Temperature Pulse Rate 109 H 110 H 114 H Pulse Rate [ From Monitor] Respiratory 15 28 H 18 Rate Blood Pressure 112/67 122/72 131/73 O2 Sat by Pulse 100 98 96 Oximetry 06/25/20 06/25/20 06/25/20 02:00 02:16 02:30 Temperature Pulse Rate 128 H 127 H 124 H Pulse Rate [ From Monitor] Respiratory 24 23 27 H Rate Blood Pressure 122/72 142/70 142/70 O2 Sat by Pulse 96 96 95 Oximetry 06/25/20 06/25/20 06/25/20 02:45 03:00 03:15 Temperature Pulse Rate 126 H 118 H 120 H Pulse Rate [ From Monitor] Respiratory 28 H 25 H 22 Rate Blood Pressure 138/88 128/75 130/80 O2 Sat by Pulse 93 99 99 Oximetry 06/25/20 06/25/20 06/25/20 03:30 03:45 04:00 Temperature 98.5 F Pulse Rate 130 H 129 H 122 H Pulse Rate [ 109 H From Monitor] Respiratory 23 26 H 28 H Rate Blood Pressure 147/81 149/83 138/80 O2 Sat by Pulse 96 98 94 Oximetry 06/25/20 06/25/20 06/25/20 04:13 04:15 04:30 Temperature Pulse Rate 122 H 121 H 128 H Pulse Rate [ From Monitor] Respiratory 24 29 H Rate Blood Pressure 138/92 126/84 138/80 O2 Sat by Pulse 97 100 87 Oximetry 06/25/20 06/25/20 06/25/20 04:45 05:00 05:15 Temperature Pulse Rate 131 H 118 H 117 H Pulse Rate [ From Monitor] Respiratory 28 H 32 H 34 H Rate Blood Pressure 135/79 153/87 161/88 O2 Sat by Pulse 87 87 91 Oximetry 06/25/20 06/25/20 06/25/20 05:30 05:45 06:00 Temperature Pulse Rate 106 H 113 H 114 H Pulse Rate [ From Monitor] Respiratory 35 H 19 24 Rate Blood Pressure 166/86 124/78 108/62 O2 Sat by Pulse 91 98 100 Oximetry 06/25/20 06/25/20 06/25/20 06:15 06:30 06:45 Temperature Pulse Rate 107 H 111 H 112 H Pulse Rate [ From Monitor] Respiratory 26 H 31 H 22 Rate Blood Pressure 136/76 127/74 111/69 O2 Sat by Pulse 99 99 100 Oximetry 06/25/20 06/25/20 06/25/20 07:00 07:16 07:30 Temperature Pulse Rate 118 H 95 H 113 H Pulse Rate [ From Monitor] Respiratory 21 31 H 29 H Rate Blood Pressure 118/86 109/79 106/73 O2 Sat by Pulse 98 89 99 Oximetry 06/25/20 06/25/20 06/25/20 07:45 08:00 08:11 Temperature 98.6 F Pulse Rate 111 H 135 H 122 H Pulse Rate [ 119 H From Monitor] Respiratory 16 33 H Rate Blood Pressure 119/71 119/71 138/72 O2 Sat by Pulse 99 96 95 Oximetry 06/25/20 06/25/20 06/25/20 08:15 08:30 08:45 Temperature Pulse Rate 121 H 128 H 108 H Pulse Rate [ From Monitor] Respiratory 16 27 H 31 H Rate Blood Pressure 119/68 136/87 142/71 O2 Sat by Pulse 97 95 88 Oximetry 06/25/20 06/25/20 06/25/20 09:00 09:15 09:30 Temperature Pulse Rate 107 H 105 H 95 H Pulse Rate [ From Monitor] Respiratory 30 H 17 30 H Rate Blood Pressure 78/46 79/49 94/62 O2 Sat by Pulse 90 100 Oximetry 06/25/20 06/25/20 06/25/20 09:45 10:00 10:15 Temperature Pulse Rate 96 H 96 H 94 H Pulse Rate [ From Monitor] Respiratory 30 H 30 H 30 H Rate Blood Pressure 89/53 82/52 85/54 O2 Sat by Pulse 96 97 98 Oximetry 06/25/20 06/25/20 06/25/20 10:30 10:46 11:00 Temperature Pulse Rate 91 H 87 89 Pulse Rate [ From Monitor] Respiratory 30 H 30 H 30 H Rate Blood Pressure 80/49 115/71 111/69 O2 Sat by Pulse 94 Oximetry 06/25/20 06/25/20 06/25/20 11:15 11:30 11:45 Temperature Pulse Rate 89 87 88 Pulse Rate [ From Monitor] Respiratory 30 H 30 H 30 H Rate Blood Pressure 109/69 113/75 112/70 O2 Sat by Pulse 97 95 95 Oximetry 06/25/20 06/25/20 06/25/20 11:59 12:00 12:15 Temperature 98.8 F Pulse Rate 89 88 91 H Pulse Rate [ 119 H From Monitor] Respiratory 30 H 30 H Rate Blood Pressure 112/69 112/69 116/67 O2 Sat by Pulse 97 95 95 Oximetry Constitutional: appears uncomfortable, other (middle aged obese male with mildly increased respiratory effort at rest on MVS) Eyes: non-icteric ENT: oropharynx moist, other (ETT 24 cm CHILO) Neck: supple, no JVD Effort: mildly labored Ascultation: Bilateral: diminished breath sounds, rhonchi (scant), other (right chest tube) Percussion: Bilateral: not dull Cardiovascular: regular rate and rhythm, other (No R/M) Gastrointestinal: normoactive bowel sounds, soft, non-tender, other (distended and firm) Integumentary: normal Extremities: no cyanosis, no edema, pulses normal, no ischemia or petechiae Neurologic: pupils equal and round, CN II-XII normal, other (unable top assess r e: AMS) Psychiatric: other (sedated) CBC and BMP: 07/05/20 05:18 07/05/20 05:18 ABG, PT/INR, D-dimer: ABG ABG pH 7.454 (7.320-7.450) H 06/25/20 04:08 POC ABG pCO2 56.9 mmHg (32.0-48.0) H 06/25/20 04:08 ABG pCO2 69.8 mm Hg 06/22/20 03:50 POC ABG pO2 61.0 mmHg (83-108) L 06/25/20 04:08 ABG pO2 89.6 mm Hg (80.0-90.0) 06/22/20 03:50 POC ABG HCO3 39 06/25/20 04:08 ABG O2 Saturation 97.1 % (95.0-99.0) 06/22/20 03:50 PT/INR, D-dimer PT 11.8 Sec. (12.2-14.9) L 06/22/20 14:29 INR 0.88 (0.87-1.13) 06/22/20 14:29 D-Dimer 1887.82 ng/mlDDU (0-234) H 05/20/20 08:16 Abnormal lab findings: Abnormal Labs 05/09/20 05/09/20 05/09/20 12:59 12:59 12:59 WBC 11.8 H RBC Hgb Hct MCV 96 H MCH 34 H MCHC 35 H RDW Lymph % (Auto) 6.9 L Lymph # (Auto) 0.8 L Seg Neutrophils % 87.5 H Seg Neuts % (Manual) Lymphocytes % (Manual) Nucleated RBC % Seg Neutrophils # 10.3 H Seg Neutrophils # Man Lymphocytes # (Manual) Monocytes # (Manual) PT INR APTT D-Dimer ABG pH POC ABG pCO2 POC ABG pO2 ABG pO2 ABG HCO3 ABG O2 Saturation ABG Base Excess ABG Hemoglobin ABG Oxyhemoglobin ABG Sodium ABG Potassium ABG Chloride ABG Glucose Oxyhemoglobin Sodium 130 L Potassium 3.5 L Chloride 86.4 L Carbon Dioxide BUN 33 H Creatinine 2.3 H Glucose 156 H POC Glucose Lactic Acid Calcium Magnesium Ferritin Total Bilirubin 3.40 H Direct Bilirubin 1.7 H AST 385 H ALT 134 H Alkaline Phosphatase Lactate Dehydrogenase C-Reactive Protein Total Protein Albumin 3.0 L Triglycerides Arterial Blood Glucose Arterial Blood Ionized Calcium Urine WBC (Auto) Coronavirus (PCR) SARS-CoV-2 IgG Ab Crossmatch 05/09/20 05/09/20 05/09/20 12:59 12:59 12:59 WBC RBC Hgb Hct MCV MCH MCHC RDW Lymph % (Auto) Lymph # (Auto) Seg Neutrophils % Seg Neuts % (Manual) Lymphocytes % (Manual) Nucleated RBC % Seg Neutrophils # Seg Neutrophils # Man Lymphocytes # (Manual) Monocytes # (Manual) PT INR APTT D-Dimer 3242.51 H ABG pH POC ABG pCO2 POC ABG pO2 ABG pO2 ABG HCO3 ABG O2 Saturation ABG Base Excess ABG Hemoglobin ABG Oxyhemoglobin ABG Sodium ABG Potassium ABG Chloride ABG Glucose Oxyhemoglobin Sodium Potassium Chloride Carbon Dioxide BUN Creatinine Glucose 158 H POC Glucose Lactic Acid 3.50 H* Calcium Magnesium Ferritin Total Bilirubin Direct Bilirubin AST ALT Alkaline Phosphatase Lactate Dehydrogenase 2166 H C-Reactive Protein 39.00 H Total Protein Albumin Triglycerides Arterial Blood Glucose Arterial Blood Ionized Calcium Urine WBC (Auto) Coronavirus (PCR) SARS-CoV-2 IgG Ab Crossmatch 05/09/20 05/09/20 05/09/20 12:59 14:20 14:20 WBC RBC Hgb Hct MCV MCH MCHC RDW Lymph % (Auto) Lymph # (Auto) Seg Neutrophils % Seg Neuts % (Manual) Lymphocytes % (Manual) Nucleated RBC % Seg Neutrophils # Seg Neutrophils # Man Lymphocytes # (Manual) Monocytes # (Manual) PT INR APTT D-Dimer 2861.78 H ABG pH POC ABG pCO2 POC ABG pO2 ABG pO2 ABG HCO3 ABG O2 Saturation ABG Base Excess ABG Hemoglobin ABG Oxyhemoglobin ABG Sodium ABG Potassium ABG Chloride ABG Glucose Oxyhemoglobin Sodium Potassium Chloride Carbon Dioxide BUN Creatinine Glucose POC Glucose Lactic Acid 2.20 H* Calcium Magnesium Ferritin 19531.0 H Total Bilirubin Direct Bilirubin AST ALT Alkaline Phosphatase Lactate Dehydrogenase C-Reactive Protein Total Protein Albumin Triglycerides Arterial Blood Glucose Arterial Blood Ionized Calcium Urine WBC (Auto) Coronavirus (PCR) SARS-CoV-2 IgG Ab Crossmatch 05/09/20 05/09/20 05/09/20 14:20 14:20 15:56 WBC RBC Hgb Hct MCV MCH MCHC RDW Lymph % (Auto) Lymph # (Auto) Seg Neutrophils % Seg Neuts % (Manual) Lymphocytes % (Manual) Nucleated RBC % Seg Neutrophils # Seg Neutrophils # Man Lymphocytes # (Manual) Monocytes # (Manual) PT INR APTT D-Dimer ABG pH POC ABG pCO2 POC ABG pO2 57.3 L ABG pO2 ABG HCO3 ABG O2 Saturation ABG Base Excess ABG Hemoglobin ABG Oxyhemoglobin 86.3 L ABG Sodium 129.9 L ABG Potassium ABG Chloride ABG Glucose 146 H Oxyhemoglobin Sodium Potassium Chloride Carbon Dioxide BUN Creatinine Glucose 143 H POC Glucose Lactic Acid Calcium Magnesium Ferritin 41863.0 H Total Bilirubin Direct Bilirubin AST ALT Alkaline Phosphatase Lactate Dehydrogenase 1953 H C-Reactive Protein 33.50 H Total Protein Albumin Triglycerides Arterial Blood Glucose 146 H Arterial Blood Ionized Calcium 3.9 L Urine WBC (Auto) Coronavirus (PCR) SARS-CoV-2 IgG Ab Crossmatch 05/10/20 05/10/20 05/10/20 10:32 10:32 18:50 WBC 15.4 H RBC Hgb Hct MCV 97 H MCH 33 H MCHC RDW 13.1 L Lymph % (Auto) Lymph # (Auto) Seg Neutrophils % Seg Neuts % (Manual) 89.0 H Lymphocytes % (Manual) 8.0 L Nucleated RBC % Seg Neutrophils # Seg Neutrophils # Man 13.7 H Lymphocytes # (Manual) Monocytes # (Manual) PT INR APTT D-Dimer ABG pH POC ABG pCO2 POC ABG pO2 ABG pO2 ABG HCO3 ABG O2 Saturation ABG Base Excess ABG Hemoglobin ABG Oxyhemoglobin ABG Sodium ABG Potassium ABG Chloride ABG Glucose Oxyhemoglobin Sodium 136 L Potassium Chloride 97.4 L Carbon Dioxide BUN 37 H Creatinine 1.7 H Glucose 209 H POC Glucose Lactic Acid Calcium Magnesium Ferritin > 2000.0 H Total Bilirubin Direct Bilirubin AST ALT Alkaline Phosphatase Lactate Dehydrogenase C-Reactive Protein Total Protein Albumin Triglycerides Arterial Blood Glucose Arterial Blood Ionized Calcium Urine WBC (Auto) Coronavirus (PCR) SARS-CoV-2 IgG Ab Crossmatch 05/10/20 05/10/20 05/10/20 18:50 19:00 Unknown WBC RBC Hgb Hct MCV MCH MCHC RDW Lymph % (Auto) Lymph # (Auto) Seg Neutrophils % Seg Neuts % (Manual) Lymphocytes % (Manual) Nucleated RBC % Seg Neutrophils # Seg Neutrophils # Man Lymphocytes # (Manual) Monocytes # (Manual) PT INR APTT D-Dimer > 92953 H ABG pH POC ABG pCO2 POC ABG pO2 ABG pO2 ABG HCO3 ABG O2 Saturation ABG Base Excess ABG Hemoglobin ABG Oxyhemoglobin ABG Sodium ABG Potassium ABG Chloride ABG Glucose Oxyhemoglobin Sodium Potassium Chloride Carbon Dioxide BUN Creatinine Glucose POC Glucose Lactic Acid Calcium Magnesium Ferritin Total Bilirubin Direct Bilirubin AST ALT Alkaline Phosphatase Lactate Dehydrogenase 1879 H C-Reactive Protein 24.80 H Total Protein Albumin Triglycerides Arterial Blood Glucose Arterial Blood Ionized Calcium Urine WBC (Auto) 11.0 H Coronavirus (PCR) SARS-CoV-2 IgG Ab Crossmatch 05/10/20 05/11/20 05/11/20 Unknown 07:30 07:30 WBC RBC Hgb Hct MCV MCH MCHC RDW Lymph % (Auto) Lymph # (Auto) Seg Neutrophils % Seg Neuts % (Manual) Lymphocytes % (Manual) Nucleated RBC % Seg Neutrophils # Seg Neutrophils # Man Lymphocytes # (Manual) Monocytes # (Manual) PT INR APTT D-Dimer > 2000 H ABG pH POC ABG pCO2 POC ABG pO2 ABG pO2 ABG HCO3 ABG O2 Saturation ABG Base Excess ABG Hemoglobin ABG Oxyhemoglobin ABG Sodium ABG Potassium ABG Chloride ABG Glucose Oxyhemoglobin Sodium Potassium Chloride 96.3 L Carbon Dioxide BUN 36 H Creatinine Glucose 161 H POC Glucose Lactic Acid Calcium 8.3 L Magnesium Ferritin Total Bilirubin 1.50 H Direct Bilirubin 0.6 H AST 178 H ALT 111 H Alkaline Phosphatase Lactate Dehydrogenase C-Reactive Protein Total Protein Albumin 3.0 L Triglycerides Arterial Blood Glucose Arterial Blood Ionized Calcium Urine WBC (Auto) Coronavirus (PCR) Positive A SARS-CoV-2 IgG Ab Crossmatch 05/11/20 05/11/20 05/11/20 07:30 07:30 07:30 WBC RBC Hgb Hct MCV MCH MCHC RDW Lymph % (Auto) Lymph # (Auto) Seg Neutrophils % Seg Neuts % (Manual) Lymphocytes % (Manual) Nucleated RBC % Seg Neutrophils # Seg Neutrophils # Man Lymphocytes # (Manual) Monocytes # (Manual) PT INR APTT D-Dimer ABG pH POC ABG pCO2 POC ABG pO2 ABG pO2 ABG HCO3 ABG O2 Saturation ABG Base Excess ABG Hemoglobin ABG Oxyhemoglobin ABG Sodium ABG Potassium ABG Chloride ABG Glucose Oxyhemoglobin Sodium Potassium Chloride Carbon Dioxide BUN Creatinine Glucose POC Glucose Lactic Acid Calcium Magnesium Ferritin 15697.0 H Total Bilirubin Direct Bilirubin AST ALT Alkaline Phosphatase Lactate Dehydrogenase 1523 H C-Reactive Protein 12.90 H Total Protein Albumin Triglycerides Arterial Blood Glucose Arterial Blood Ionized Calcium Urine WBC (Auto) Coronavirus (PCR) SARS-CoV-2 IgG Ab Reactive A Crossmatch 05/13/20 05/13/20 05/15/20 05:20 05:20 08:15 WBC RBC Hgb Hct MCV MCH MCHC RDW Lymph % (Auto) Lymph # (Auto) Seg Neutrophils % Seg Neuts % (Manual) Lymphocytes % (Manual) Nucleated RBC % Seg Neutrophils # Seg Neutrophils # Man Lymphocytes # (Manual) Monocytes # (Manual) PT INR APTT D-Dimer > 93196 H 5318.28 H ABG pH POC ABG pCO2 POC ABG pO2 ABG pO2 ABG HCO3 ABG O2 Saturation ABG Base Excess ABG Hemoglobin ABG Oxyhemoglobin ABG Sodium ABG Potassium ABG Chloride ABG Glucose Oxyhemoglobin Sodium Potassium Chloride Carbon Dioxide 32 H BUN 30 H Creatinine Glucose 156 H POC Glucose Lactic Acid Calcium Magnesium 2.60 H Ferritin Total Bilirubin 1.40 H Direct Bilirubin AST 121 H ALT 119 H Alkaline Phosphatase Lactate Dehydrogenase 957 H C-Reactive Protein 4.00 H Total Protein Albumin 3.0 L Triglycerides Arterial Blood Glucose Arterial Blood Ionized Calcium Urine WBC (Auto) Coronavirus (PCR) SARS-CoV-2 IgG Ab Crossmatch 05/15/20 05/15/20 05/15/20 08:15 08:15 08:15 WBC 12.4 H RBC Hgb Hct MCV 98 H MCH 33 H MCHC RDW Lymph % (Auto) 9.7 L Lymph # (Auto) Seg Neutrophils % 86.8 H Seg Neuts % (Manual) Lymphocytes % (Manual) Nucleated RBC % Seg Neutrophils # 10.8 H Seg Neutrophils # Man Lymphocytes # (Manual) Monocytes # (Manual) PT INR APTT D-Dimer ABG pH POC ABG pCO2 POC ABG pO2 ABG pO2 ABG HCO3 ABG O2 Saturation ABG Base Excess ABG Hemoglobin ABG Oxyhemoglobin ABG Sodium ABG Potassium ABG Chloride ABG Glucose Oxyhemoglobin Sodium Potassium Chloride 94.8 L Carbon Dioxide 32 H BUN 22 H Creatinine Glucose 115 H POC Glucose Lactic Acid Calcium 8.3 L Magnesium Ferritin 2494.0 H Total Bilirubin Direct Bilirubin AST 73 H ALT 121 H Alkaline Phosphatase Lactate Dehydrogenase 835 H C-Reactive Protein 3.40 H Total Protein 6.1 L Albumin 3.0 L Triglycerides Arterial Blood Glucose Arterial Blood Ionized Calcium Urine WBC (Auto) Coronavirus (PCR) SARS-CoV-2 IgG Ab Crossmatch 05/17/20 05/17/20 05/17/20 05:50 05:50 05:50 WBC RBC Hgb Hct MCV MCH MCHC RDW Lymph % (Auto) Lymph # (Auto) Seg Neutrophils % Seg Neuts % (Manual) Lymphocytes % (Manual) Nucleated RBC % Seg Neutrophils # Seg Neutrophils # Man Lymphocytes # (Manual) Monocytes # (Manual) PT INR APTT D-Dimer 2911.42 H ABG pH POC ABG pCO2 POC ABG pO2 ABG pO2 ABG HCO3 ABG O2 Saturation ABG Base Excess ABG Hemoglobin ABG Oxyhemoglobin ABG Sodium ABG Potassium ABG Chloride ABG Glucose Oxyhemoglobin Sodium 136 L Potassium Chloride 96.0 L Carbon Dioxide 34 H BUN 22 H Creatinine Glucose 140 H POC Glucose Lactic Acid Calcium Magnesium Ferritin 2082.0 H Total Bilirubin Direct Bilirubin AST ALT 75 H Alkaline Phosphatase Lactate Dehydrogenase 601 H C-Reactive Protein 2.70 H Total Protein Albumin 2.9 L Triglycerides Arterial Blood Glucose Arterial Blood Ionized Calcium Urine WBC (Auto) Coronavirus (PCR) SARS-CoV-2 IgG Ab Crossmatch 05/17/20 05/18/20 05/20/20 05:50 12:22 08:16 WBC RBC Hgb Hct MCV 98 H MCH 33 H MCHC RDW Lymph % (Auto) 8.0 L Lymph # (Auto) 0.8 L Seg Neutrophils % 89.3 H Seg Neuts % (Manual) Lymphocytes % (Manual) Nucleated RBC % Seg Neutrophils # 8.8 H Seg Neutrophils # Man Lymphocytes # (Manual) Monocytes # (Manual) PT INR APTT D-Dimer 1887.82 H ABG pH POC ABG pCO2 POC ABG pO2 ABG pO2 ABG HCO3 ABG O2 Saturation ABG Base Excess ABG Hemoglobin ABG Oxyhemoglobin ABG Sodium ABG Potassium ABG Chloride ABG Glucose Oxyhemoglobin Sodium Potassium Chloride Carbon Dioxide BUN Creatinine Glucose POC Glucose 178 H Lactic Acid Calcium Magnesium Ferritin Total Bilirubin Direct Bilirubin AST ALT Alkaline Phosphatase Lactate Dehydrogenase C-Reactive Protein Total Protein Albumin Triglycerides Arterial Blood Glucose Arterial Blood Ionized Calcium Urine WBC (Auto) Coronavirus (PCR) SARS-CoV-2 IgG Ab Crossmatch 05/20/20 05/20/20 05/21/20 08:16 08:16 21:10 WBC RBC Hgb Hct MCV MCH MCHC RDW Lymph % (Auto) Lymph # (Auto) Seg Neutrophils % Seg Neuts % (Manual) Lymphocytes % (Manual) Nucleated RBC % Seg Neutrophils # Seg Neutrophils # Man Lymphocytes # (Manual) Monocytes # (Manual) PT INR APTT D-Dimer ABG pH 7.483 H POC ABG pCO2 POC ABG pO2 ABG pO2 50.0 L ABG HCO3 27.0 H ABG O2 Saturation 86.2 L ABG Base Excess 3.7 H ABG Hemoglobin ABG Oxyhemoglobin ABG Sodium ABG Potassium ABG Chloride ABG Glucose Oxyhemoglobin 84.2 L Sodium Potassium Chloride Carbon Dioxide BUN Creatinine Glucose POC Glucose Lactic Acid Calcium Magnesium Ferritin 1960.0 H Total Bilirubin Direct Bilirubin AST ALT Alkaline Phosphatase Lactate Dehydrogenase 705 H C-Reactive Protein 3.10 H Total Protein Albumin Triglycerides Arterial Blood Glucose Arterial Blood Ionized Calcium Urine WBC (Auto) Coronavirus (PCR) SARS-CoV-2 IgG Ab Crossmatch 05/22/20 05/22/20 05/22/20 04:01 07:53 07:53 WBC 19.2 H RBC Hgb Hct MCV 98 H MCH 34 H MCHC RDW Lymph % (Auto) Lymph # (Auto) Seg Neutrophils % Seg Neuts % (Manual) 96.0 H Lymphocytes % (Manual) 1.0 L Nucleated RBC % Seg Neutrophils # Seg Neutrophils # Man 18.4 H Lymphocytes # (Manual) 0.2 L Monocytes # (Manual) PT INR APTT D-Dimer ABG pH POC ABG pCO2 53.8 H POC ABG pO2 125.5 H ABG pO2 ABG HCO3 ABG O2 Saturation ABG Base Excess ABG Hemoglobin ABG Oxyhemoglobin ABG Sodium 131.8 L ABG Potassium 4.8 H ABG Chloride 94.0 L ABG Glucose 163 H Oxyhemoglobin Sodium 131 L Potassium Chloride 93.4 L Carbon Dioxide BUN 40 H Creatinine Glucose 176 H POC Glucose Lactic Acid Calcium Magnesium 2.70 H Ferritin Total Bilirubin 1.80 H Direct Bilirubin AST 45 H ALT 116 H Alkaline Phosphatase 181 H Lactate Dehydrogenase C-Reactive Protein Total Protein Albumin 2.6 L Triglycerides Arterial Blood Glucose 163 H Arterial Blood Ionized Calcium 4.5 L Urine WBC (Auto) Coronavirus (PCR) SARS-CoV-2 IgG Ab Crossmatch 05/23/20 05/24/20 05/24/20 04:17 03:07 04:08 WBC RBC Hgb Hct MCV MCH MCHC RDW Lymph % (Auto) Lymph # (Auto) Seg Neutrophils % Seg Neuts % (Manual) Lymphocytes % (Manual) Nucleated RBC % Seg Neutrophils # Seg Neutrophils # Man Lymphocytes # (Manual) Monocytes # (Manual) PT INR APTT D-Dimer ABG pH 7.328 L POC ABG pCO2 POC ABG pO2 ABG pO2 72.8 L 73.4 L ABG HCO3 31.0 H 34.0 H ABG O2 Saturation 93.5 L ABG Base Excess 3.5 H 7.7 H ABG Hemoglobin 13.3 L 12.1 L ABG Oxyhemoglobin ABG Sodium ABG Potassium ABG Chloride ABG Glucose Oxyhemoglobin 91.5 L 94.3 L Sodium Potassium Chloride Carbon Dioxide BUN Creatinine Glucose POC Glucose 155 H Lactic Acid Calcium Magnesium Ferritin Total Bilirubin Direct Bilirubin AST ALT Alkaline Phosphatase Lactate Dehydrogenase C-Reactive Protein Total Protein Albumin Triglycerides Arterial Blood Glucose Arterial Blood Ionized Calcium Urine WBC (Auto) Coronavirus (PCR) SARS-CoV-2 IgG Ab Crossmatch 05/24/20 05/24/20 05/24/20 09:33 12:21 17:52 WBC RBC Hgb Hct MCV MCH MCHC RDW Lymph % (Auto) Lymph # (Auto) Seg Neutrophils % Seg Neuts % (Manual) Lymphocytes % (Manual) Nucleated RBC % Seg Neutrophils # Seg Neutrophils # Man Lymphocytes # (Manual) Monocytes # (Manual) PT INR APTT D-Dimer ABG pH POC ABG pCO2 POC ABG pO2 ABG pO2 ABG HCO3 ABG O2 Saturation ABG Base Excess ABG Hemoglobin ABG Oxyhemoglobin ABG Sodium ABG Potassium ABG Chloride ABG Glucose Oxyhemoglobin Sodium Potassium Chloride Carbon Dioxide 34 H D BUN 28 H Creatinine 0.7 L Glucose 168 H POC Glucose 173 H 164 H Lactic Acid Calcium Magnesium Ferritin Total Bilirubin Direct Bilirubin AST ALT Alkaline Phosphatase Lactate Dehydrogenase C-Reactive Protein Total Protein Albumin Triglycerides Arterial Blood Glucose Arterial Blood Ionized Calcium Urine WBC (Auto) Coronavirus (PCR) SARS-CoV-2 IgG Ab Crossmatch 05/24/20 05/25/20 05/25/20 23:47 04:29 05:46 WBC RBC Hgb Hct MCV MCH MCHC RDW Lymph % (Auto) Lymph # (Auto) Seg Neutrophils % Seg Neuts % (Manual) Lymphocytes % (Manual) Nucleated RBC % Seg Neutrophils # Seg Neutrophils # Man Lymphocytes # (Manual) Monocytes # (Manual) PT INR APTT D-Dimer ABG pH POC ABG pCO2 68.6 H POC ABG pO2 ABG pO2 ABG HCO3 ABG O2 Saturation ABG Base Excess ABG Hemoglobin ABG Oxyhemoglobin ABG Sodium ABG Potassium 4.7 H ABG Chloride ABG Glucose 226 H Oxyhemoglobin Sodium Potassium Chloride Carbon Dioxide BUN Creatinine Glucose POC Glucose 171 H 201 H Lactic Acid Calcium Magnesium Ferritin Total Bilirubin Direct Bilirubin AST ALT Alkaline Phosphatase Lactate Dehydrogenase C-Reactive Protein Total Protein Albumin Triglycerides Arterial Blood Glucose 226 H Arterial Blood Ionized Calcium Urine WBC (Auto) Coronavirus (PCR) SARS-CoV-2 IgG Ab Crossmatch 05/25/20 05/25/20 05/25/20 08:37 08:37 12:38 WBC 12.0 H RBC 3.64 L Hgb Hct MCV 99 H MCH 33 H MCHC RDW Lymph % (Auto) Lymph # (Auto) Seg Neutrophils % Seg Neuts % (Manual) Lymphocytes % (Manual) Nucleated RBC % Seg Neutrophils # Seg Neutrophils # Man Lymphocytes # (Manual) Monocytes # (Manual) PT INR APTT D-Dimer ABG pH POC ABG pCO2 POC ABG pO2 ABG pO2 ABG HCO3 ABG O2 Saturation ABG Base Excess ABG Hemoglobin ABG Oxyhemoglobin ABG Sodium ABG Potassium ABG Chloride ABG Glucose Oxyhemoglobin Sodium Potassium Chloride 97.3 L Carbon Dioxide 35 H BUN 25 H Creatinine 0.7 L Glucose 191 H POC Glucose 182 H Lactic Acid Calcium Magnesium Ferritin Total Bilirubin Direct Bilirubin AST ALT Alkaline Phosphatase Lactate Dehydrogenase C-Reactive Protein Total Protein Albumin Triglycerides Arterial Blood Glucose Arterial Blood Ionized Calcium Urine WBC (Auto) Coronavirus (PCR) SARS-CoV-2 IgG Ab Crossmatch 05/25/20 05/26/20 05/26/20 18:16 00:06 04:50 WBC RBC Hgb Hct MCV MCH MCHC RDW Lymph % (Auto) Lymph # (Auto) Seg Neutrophils % Seg Neuts % (Manual) Lymphocytes % (Manual) Nucleated RBC % Seg Neutrophils # Seg Neutrophils # Man Lymphocytes # (Manual) Monocytes # (Manual) PT INR APTT D-Dimer ABG pH POC ABG pCO2 POC ABG pO2 ABG pO2 221.5 H ABG HCO3 40.4 H ABG O2 Saturation 99.3 H ABG Base Excess 12.8 H ABG Hemoglobin 10.4 L ABG Oxyhemoglobin ABG Sodium ABG Potassium ABG Chloride ABG Glucose Oxyhemoglobin Sodium Potassium Chloride Carbon Dioxide BUN Creatinine Glucose POC Glucose 176 H 152 H Lactic Acid Calcium Magnesium Ferritin Total Bilirubin Direct Bilirubin AST ALT Alkaline Phosphatase Lactate Dehydrogenase C-Reactive Protein Total Protein Albumin Triglycerides Arterial Blood Glucose Arterial Blood Ionized Calcium Urine WBC (Auto) Coronavirus (PCR) SARS-CoV-2 IgG Ab Crossmatch 05/26/20 05/26/20 05/26/20 06:11 07:51 07:51 WBC 13.4 H RBC 3.64 L Hgb Hct MCV 98 H MCH 33 H MCHC RDW Lymph % (Auto) Lymph # (Auto) Seg Neutrophils % Seg Neuts % (Manual) Lymphocytes % (Manual) Nucleated RBC % Seg Neutrophils # Seg Neutrophils # Man Lymphocytes # (Manual) Monocytes # (Manual) PT INR APTT D-Dimer ABG pH POC ABG pCO2 POC ABG pO2 ABG pO2 ABG HCO3 ABG O2 Saturation ABG Base Excess ABG Hemoglobin ABG Oxyhemoglobin ABG Sodium ABG Potassium ABG Chloride ABG Glucose Oxyhemoglobin Sodium Potassium Chloride 96.6 L Carbon Dioxide 39 H BUN 29 H Creatinine 0.7 L Glucose 174 H POC Glucose 165 H Lactic Acid Calcium Magnesium Ferritin Total Bilirubin Direct Bilirubin AST ALT Alkaline Phosphatase Lactate Dehydrogenase C-Reactive Protein Total Protein Albumin Triglycerides Arterial Blood Glucose Arterial Blood Ionized Calcium Urine WBC (Auto) Coronavirus (PCR) SARS-CoV-2 IgG Ab Crossmatch 05/26/20 05/27/20 05/27/20 23:23 03:43 05:29 WBC RBC Hgb Hct MCV MCH MCHC RDW Lymph % (Auto) Lymph # (Auto) Seg Neutrophils % Seg Neuts % (Manual) Lymphocytes % (Manual) Nucleated RBC % Seg Neutrophils # Seg Neutrophils # Man Lymphocytes # (Manual) Monocytes # (Manual) PT INR APTT D-Dimer ABG pH 7.480 H POC ABG pCO2 52.4 H POC ABG pO2 61.4 L ABG pO2 ABG HCO3 ABG O2 Saturation ABG Base Excess ABG Hemoglobin ABG Oxyhemoglobin ABG Sodium 134.9 L ABG Potassium ABG Chloride 95.0 L ABG Glucose 221 H Oxyhemoglobin Sodium Potassium Chloride Carbon Dioxide BUN Creatinine Glucose POC Glucose 169 H 227 H Lactic Acid Calcium Magnesium Ferritin Total Bilirubin Direct Bilirubin AST ALT Alkaline Phosphatase Lactate Dehydrogenase C-Reactive Protein Total Protein Albumin Triglycerides Arterial Blood Glucose 221 H Arterial Blood Ionized Calcium 4.5 L Urine WBC (Auto) Coronavirus (PCR) SARS-CoV-2 IgG Ab Crossmatch 05/27/20 05/27/20 05/27/20 07:19 12:18 13:50 WBC RBC Hgb Hct MCV MCH MCHC RDW Lymph % (Auto) Lymph # (Auto) Seg Neutrophils % Seg Neuts % (Manual) Lymphocytes % (Manual) Nucleated RBC % Seg Neutrophils # Seg Neutrophils # Man Lymphocytes # (Manual) Monocytes # (Manual) PT INR APTT D-Dimer ABG pH POC ABG pCO2 POC ABG pO2 ABG pO2 ABG HCO3 ABG O2 Saturation ABG Base Excess ABG Hemoglobin ABG Oxyhemoglobin ABG Sodium ABG Potassium ABG Chloride ABG Glucose Oxyhemoglobin Sodium Potassium Chloride Carbon Dioxide BUN Creatinine Glucose POC Glucose 114 H 148 H Lactic Acid Calcium Magnesium Ferritin Total Bilirubin Direct Bilirubin AST ALT Alkaline Phosphatase Lactate Dehydrogenase C-Reactive Protein Total Protein Albumin Triglycerides 247 H Arterial Blood Glucose Arterial Blood Ionized Calcium Urine WBC (Auto) Coronavirus (PCR) SARS-CoV-2 IgG Ab Crossmatch 05/28/20 05/28/20 05/28/20 00:13 04:16 05:22 WBC RBC Hgb Hct MCV MCH MCHC RDW Lymph % (Auto) Lymph # (Auto) Seg Neutrophils % Seg Neuts % (Manual) Lymphocytes % (Manual) Nucleated RBC % Seg Neutrophils # Seg Neutrophils # Man Lymphocytes # (Manual) Monocytes # (Manual) PT INR APTT D-Dimer ABG pH POC ABG pCO2 64.4 H POC ABG pO2 60.5 L ABG pO2 ABG HCO3 ABG O2 Saturation ABG Base Excess ABG Hemoglobin ABG Oxyhemoglobin ABG Sodium ABG Potassium ABG Chloride 95.0 L ABG Glucose 209 H Oxyhemoglobin Sodium Potassium Chloride Carbon Dioxide BUN Creatinine Glucose POC Glucose 155 H 186 H Lactic Acid Calcium Magnesium Ferritin Total Bilirubin Direct Bilirubin AST ALT Alkaline Phosphatase Lactate Dehydrogenase C-Reactive Protein Total Protein Albumin Triglycerides Arterial Blood Glucose 209 H Arterial Blood Ionized Calcium Urine WBC (Auto) Coronavirus (PCR) SARS-CoV-2 IgG Ab Crossmatch 05/28/20 05/28/20 05/29/20 12:45 17:39 00:37 WBC RBC Hgb Hct MCV MCH MCHC RDW Lymph % (Auto) Lymph # (Auto) Seg Neutrophils % Seg Neuts % (Manual) Lymphocytes % (Manual) Nucleated RBC % Seg Neutrophils # Seg Neutrophils # Man Lymphocytes # (Manual) Monocytes # (Manual) PT INR APTT D-Dimer ABG pH POC ABG pCO2 POC ABG pO2 ABG pO2 ABG HCO3 ABG O2 Saturation ABG Base Excess ABG Hemoglobin ABG Oxyhemoglobin ABG Sodium ABG Potassium ABG Chloride ABG Glucose Oxyhemoglobin Sodium Potassium Chloride Carbon Dioxide BUN Creatinine Glucose POC Glucose 143 H 164 H 221 H Lactic Acid Calcium Magnesium Ferritin Total Bilirubin Direct Bilirubin AST ALT Alkaline Phosphatase Lactate Dehydrogenase C-Reactive Protein Total Protein Albumin Triglycerides Arterial Blood Glucose Arterial Blood Ionized Calcium Urine WBC (Auto) Coronavirus (PCR) SARS-CoV-2 IgG Ab Crossmatch 05/29/20 05/29/20 05/29/20 04:15 05:33 12:34 WBC RBC Hgb Hct MCV MCH MCHC RDW Lymph % (Auto) Lymph # (Auto) Seg Neutrophils % Seg Neuts % (Manual) Lymphocytes % (Manual) Nucleated RBC % Seg Neutrophils # Seg Neutrophils # Man Lymphocytes # (Manual) Monocytes # (Manual) PT INR APTT D-Dimer ABG pH 7.463 H POC ABG pCO2 56.3 H POC ABG pO2 81.2 L ABG pO2 ABG HCO3 ABG O2 Saturation ABG Base Excess ABG Hemoglobin ABG Oxyhemoglobin ABG Sodium ABG Potassium ABG Chloride 96.0 L ABG Glucose 194 H Oxyhemoglobin Sodium Potassium Chloride Carbon Dioxide BUN Creatinine Glucose POC Glucose 133 H 221 H Lactic Acid Calcium Magnesium Ferritin Total Bilirubin Direct Bilirubin AST ALT Alkaline Phosphatase Lactate Dehydrogenase C-Reactive Protein Total Protein Albumin Triglycerides Arterial Blood Glucose 194 H Arterial Blood Ionized Calcium 4.5 L Urine WBC (Auto) Coronavirus (PCR) SARS-CoV-2 IgG Ab Crossmatch 05/29/20 05/30/20 05/30/20 18:07 00:12 05:38 WBC RBC Hgb Hct MCV MCH MCHC RDW Lymph % (Auto) Lymph # (Auto) Seg Neutrophils % Seg Neuts % (Manual) Lymphocytes % (Manual) Nucleated RBC % Seg Neutrophils # Seg Neutrophils # Man Lymphocytes # (Manual) Monocytes # (Manual) PT INR APTT D-Dimer ABG pH POC ABG pCO2 POC ABG pO2 ABG pO2 ABG HCO3 ABG O2 Saturation ABG Base Excess ABG Hemoglobin ABG Oxyhemoglobin ABG Sodium ABG Potassium ABG Chloride ABG Glucose Oxyhemoglobin Sodium Potassium Chloride Carbon Dioxide BUN Creatinine Glucose POC Glucose 162 H 190 H 208 H Lactic Acid Calcium Magnesium Ferritin Total Bilirubin Direct Bilirubin AST ALT Alkaline Phosphatase Lactate Dehydrogenase C-Reactive Protein Total Protein Albumin Triglycerides Arterial Blood Glucose Arterial Blood Ionized Calcium Urine WBC (Auto) Coronavirus (PCR) SARS-CoV-2 IgG Ab Crossmatch 05/30/20 05/30/20 05/30/20 09:30 11:35 11:54 WBC 12.4 H RBC 3.48 L Hgb 11.3 L Hct 34.6 L MCV 99 H MCH 33 H MCHC RDW Lymph % (Auto) Lymph # (Auto) Seg Neutrophils % Seg Neuts % (Manual) Lymphocytes % (Manual) Nucleated RBC % Seg Neutrophils # Seg Neutrophils # Man Lymphocytes # (Manual) Monocytes # (Manual) PT INR APTT D-Dimer ABG pH 7.455 H POC ABG pCO2 57.5 H POC ABG pO2 81.5 L ABG pO2 ABG HCO3 ABG O2 Saturation ABG Base Excess ABG Hemoglobin ABG Oxyhemoglobin ABG Sodium ABG Potassium ABG Chloride 96.0 L ABG Glucose 204 H Oxyhemoglobin Sodium Potassium Chloride Carbon Dioxide BUN Creatinine Glucose POC Glucose 183 H Lactic Acid Calcium Magnesium Ferritin Total Bilirubin Direct Bilirubin AST ALT Alkaline Phosphatase Lactate Dehydrogenase C-Reactive Protein Total Protein Albumin Triglycerides Arterial Blood Glucose 204 H Arterial Blood Ionized Calcium Urine WBC (Auto) Coronavirus (PCR) SARS-CoV-2 IgG Ab Crossmatch 05/30/20 05/31/20 05/31/20 18:01 00:10 03:22 WBC RBC Hgb Hct MCV MCH MCHC RDW Lymph % (Auto) Lymph # (Auto) Seg Neutrophils % Seg Neuts % (Manual) Lymphocytes % (Manual) Nucleated RBC % Seg Neutrophils # Seg Neutrophils # Man Lymphocytes # (Manual) Monocytes # (Manual) PT INR APTT D-Dimer ABG pH POC ABG pCO2 60.4 H POC ABG pO2 71.5 L ABG pO2 ABG HCO3 ABG O2 Saturation ABG Base Excess ABG Hemoglobin ABG Oxyhemoglobin ABG Sodium ABG Potassium ABG Chloride 96.0 L ABG Glucose 169 H Oxyhemoglobin Sodium Potassium Chloride Carbon Dioxide BUN Creatinine Glucose POC Glucose 184 H 135 H Lactic Acid Calcium Magnesium Ferritin Total Bilirubin Direct Bilirubin AST ALT Alkaline Phosphatase Lactate Dehydrogenase C-Reactive Protein Total Protein Albumin Triglycerides Arterial Blood Glucose 169 H Arterial Blood Ionized Calcium 4.5 L Urine WBC (Auto) Coronavirus (PCR) SARS-CoV-2 IgG Ab Crossmatch 05/31/20 05/31/20 05/31/20 05:24 11:18 14:41 WBC RBC Hgb Hct MCV MCH MCHC RDW Lymph % (Auto) Lymph # (Auto) Seg Neutrophils % Seg Neuts % (Manual) Lymphocytes % (Manual) Nucleated RBC % Seg Neutrophils # Seg Neutrophils # Man Lymphocytes # (Manual) Monocytes # (Manual) PT INR APTT D-Dimer ABG pH POC ABG pCO2 POC ABG pO2 ABG pO2 ABG HCO3 ABG O2 Saturation ABG Base Excess ABG Hemoglobin ABG Oxyhemoglobin ABG Sodium ABG Potassium ABG Chloride ABG Glucose Oxyhemoglobin Sodium Potassium Chloride 96.8 L Carbon Dioxide 37 H BUN 31 H Creatinine 0.6 L Glucose 213 H POC Glucose 164 H 208 H Lactic Acid Calcium Magnesium Ferritin Total Bilirubin Direct Bilirubin AST ALT Alkaline Phosphatase Lactate Dehydrogenase C-Reactive Protein Total Protein Albumin Triglycerides Arterial Blood Glucose Arterial Blood Ionized Calcium Urine WBC (Auto) Coronavirus (PCR) SARS-CoV-2 IgG Ab Crossmatch 05/31/20 05/31/20 06/01/20 17:37 23:47 03:48 WBC RBC Hgb Hct MCV MCH MCHC RDW Lymph % (Auto) Lymph # (Auto) Seg Neutrophils % Seg Neuts % (Manual) Lymphocytes % (Manual) Nucleated RBC % Seg Neutrophils # Seg Neutrophils # Man Lymphocytes # (Manual) Monocytes # (Manual) PT INR APTT D-Dimer ABG pH POC ABG pCO2 59.7 H POC ABG pO2 73.9 L ABG pO2 ABG HCO3 ABG O2 Saturation ABG Base Excess ABG Hemoglobin ABG Oxyhemoglobin ABG Sodium ABG Potassium ABG Chloride 95.0 L ABG Glucose 256 H Oxyhemoglobin Sodium Potassium Chloride Carbon Dioxide BUN Creatinine Glucose POC Glucose 168 H 178 H Lactic Acid Calcium Magnesium Ferritin Total Bilirubin Direct Bilirubin AST ALT Alkaline Phosphatase Lactate Dehydrogenase C-Reactive Protein Total Protein Albumin Triglycerides Arterial Blood Glucose 256 H Arterial Blood Ionized Calcium Urine WBC (Auto) Coronavirus (PCR) SARS-CoV-2 IgG Ab Crossmatch 06/01/20 06/01/20 06/01/20 05:01 07:47 07:47 WBC 14.4 H RBC 3.46 L Hgb 11.1 L Hct 34.3 L MCV 99 H MCH MCHC RDW Lymph % (Auto) Lymph # (Auto) Seg Neutrophils % Seg Neuts % (Manual) 86.0 H Lymphocytes % (Manual) 9.0 L Nucleated RBC % Seg Neutrophils # Seg Neutrophils # Man 12.4 H Lymphocytes # (Manual) Monocytes # (Manual) PT INR APTT D-Dimer ABG pH POC ABG pCO2 POC ABG pO2 ABG pO2 ABG HCO3 ABG O2 Saturation ABG Base Excess ABG Hemoglobin ABG Oxyhemoglobin ABG Sodium ABG Potassium ABG Chloride ABG Glucose Oxyhemoglobin Sodium Potassium Chloride Carbon Dioxide BUN Creatinine Glucose POC Glucose 197 H Lactic Acid Calcium Magnesium Ferritin Total Bilirubin Direct Bilirubin AST ALT Alkaline Phosphatase Lactate Dehydrogenase C-Reactive Protein Total Protein Albumin Triglycerides 244 H Arterial Blood Glucose Arterial Blood Ionized Calcium Urine WBC (Auto) Coronavirus (PCR) SARS-CoV-2 IgG Ab Crossmatch 06/01/20 06/01/20 06/01/20 07:47 11:46 18:15 WBC RBC Hgb Hct MCV MCH MCHC RDW Lymph % (Auto) Lymph # (Auto) Seg Neutrophils % Seg Neuts % (Manual) Lymphocytes % (Manual) Nucleated RBC % Seg Neutrophils # Seg Neutrophils # Man Lymphocytes # (Manual) Monocytes # (Manual) PT INR APTT D-Dimer ABG pH POC ABG pCO2 POC ABG pO2 ABG pO2 ABG HCO3 ABG O2 Saturation ABG Base Excess ABG Hemoglobin ABG Oxyhemoglobin ABG Sodium ABG Potassium ABG Chloride ABG Glucose Oxyhemoglobin Sodium Potassium Chloride 95.4 L Carbon Dioxide 35 H BUN 30 H Creatinine 0.5 L Glucose 214 H POC Glucose 181 H 221 H Lactic Acid Calcium Magnesium Ferritin Total Bilirubin Direct Bilirubin AST 54 H ALT 235 H Alkaline Phosphatase Lactate Dehydrogenase C-Reactive Protein Total Protein Albumin 2.9 L Triglycerides Arterial Blood Glucose Arterial Blood Ionized Calcium Urine WBC (Auto) Coronavirus (PCR) SARS-CoV-2 IgG Ab Crossmatch 06/01/20 06/02/20 06/02/20 23:12 04:00 05:31 WBC RBC Hgb Hct MCV MCH MCHC RDW Lymph % (Auto) Lymph # (Auto) Seg Neutrophils % Seg Neuts % (Manual) Lymphocytes % (Manual) Nucleated RBC % Seg Neutrophils # Seg Neutrophils # Man Lymphocytes # (Manual) Monocytes # (Manual) PT INR APTT D-Dimer ABG pH 7.465 H POC ABG pCO2 POC ABG pO2 ABG pO2 203.4 H ABG HCO3 41.2 H ABG O2 Saturation 99.3 H ABG Base Excess 15.1 H ABG Hemoglobin 11.5 L ABG Oxyhemoglobin ABG Sodium ABG Potassium ABG Chloride ABG Glucose Oxyhemoglobin Sodium Potassium Chloride Carbon Dioxide BUN Creatinine Glucose POC Glucose 197 H 184 H Lactic Acid Calcium Magnesium Ferritin Total Bilirubin Direct Bilirubin AST ALT Alkaline Phosphatase Lactate Dehydrogenase C-Reactive Protein Total Protein Albumin Triglycerides Arterial Blood Glucose Arterial Blood Ionized Calcium Urine WBC (Auto) Coronavirus (PCR) SARS-CoV-2 IgG Ab Crossmatch 06/02/20 06/02/20 06/02/20 11:49 18:06 23:00 WBC RBC Hgb Hct MCV MCH MCHC RDW Lymph % (Auto) Lymph # (Auto) Seg Neutrophils % Seg Neuts % (Manual) Lymphocytes % (Manual) Nucleated RBC % Seg Neutrophils # Seg Neutrophils # Man Lymphocytes # (Manual) Monocytes # (Manual) PT INR APTT D-Dimer ABG pH POC ABG pCO2 POC ABG pO2 ABG pO2 ABG HCO3 ABG O2 Saturation ABG Base Excess ABG Hemoglobin ABG Oxyhemoglobin ABG Sodium ABG Potassium ABG Chloride ABG Glucose Oxyhemoglobin Sodium Potassium Chloride Carbon Dioxide BUN Creatinine Glucose POC Glucose 195 H 177 H 228 H Lactic Acid Calcium Magnesium Ferritin Total Bilirubin Direct Bilirubin AST ALT Alkaline Phosphatase Lactate Dehydrogenase C-Reactive Protein Total Protein Albumin Triglycerides Arterial Blood Glucose Arterial Blood Ionized Calcium Urine WBC (Auto) Coronavirus (PCR) SARS-CoV-2 IgG Ab Crossmatch 06/03/20 06/03/20 06/03/20 03:58 05:19 12:21 WBC RBC Hgb Hct MCV MCH MCHC RDW Lymph % (Auto) Lymph # (Auto) Seg Neutrophils % Seg Neuts % (Manual) Lymphocytes % (Manual) Nucleated RBC % Seg Neutrophils # Seg Neutrophils # Man Lymphocytes # (Manual) Monocytes # (Manual) PT INR APTT D-Dimer ABG pH POC ABG pCO2 POC ABG pO2 ABG pO2 171.0 H ABG HCO3 42.8 H ABG O2 Saturation ABG Base Excess 15.6 H ABG Hemoglobin 12.3 L ABG Oxyhemoglobin ABG Sodium ABG Potassium ABG Chloride ABG Glucose Oxyhemoglobin Sodium Potassium Chloride Carbon Dioxide BUN Creatinine Glucose POC Glucose 122 H 207 H Lactic Acid Calcium Magnesium Ferritin Total Bilirubin Direct Bilirubin AST ALT Alkaline Phosphatase Lactate Dehydrogenase C-Reactive Protein Total Protein Albumin Triglycerides Arterial Blood Glucose Arterial Blood Ionized Calcium Urine WBC (Auto) Coronavirus (PCR) SARS-CoV-2 IgG Ab Crossmatch 06/03/20 06/03/20 06/04/20 17:27 23:50 03:55 WBC RBC Hgb Hct MCV MCH MCHC RDW Lymph % (Auto) Lymph # (Auto) Seg Neutrophils % Seg Neuts % (Manual) Lymphocytes % (Manual) Nucleated RBC % Seg Neutrophils # Seg Neutrophils # Man Lymphocytes # (Manual) Monocytes # (Manual) PT INR APTT D-Dimer ABG pH POC ABG pCO2 POC ABG pO2 ABG pO2 117.2 H ABG HCO3 42.4 H ABG O2 Saturation ABG Base Excess 15.3 H ABG Hemoglobin 10.5 L ABG Oxyhemoglobin ABG Sodium ABG Potassium ABG Chloride ABG Glucose Oxyhemoglobin Sodium Potassium Chloride Carbon Dioxide BUN Creatinine Glucose POC Glucose 157 H 214 H Lactic Acid Calcium Magnesium Ferritin Total Bilirubin Direct Bilirubin AST ALT Alkaline Phosphatase Lactate Dehydrogenase C-Reactive Protein Total Protein Albumin Triglycerides Arterial Blood Glucose Arterial Blood Ionized Calcium Urine WBC (Auto) Coronavirus (PCR) SARS-CoV-2 IgG Ab Crossmatch 06/04/20 06/04/20 06/04/20 05:49 11:41 17:30 WBC RBC Hgb Hct MCV MCH MCHC RDW Lymph % (Auto) Lymph # (Auto) Seg Neutrophils % Seg Neuts % (Manual) Lymphocytes % (Manual) Nucleated RBC % Seg Neutrophils # Seg Neutrophils # Man Lymphocytes # (Manual) Monocytes # (Manual) PT INR APTT D-Dimer ABG pH POC ABG pCO2 POC ABG pO2 ABG pO2 ABG HCO3 ABG O2 Saturation ABG Base Excess ABG Hemoglobin ABG Oxyhemoglobin ABG Sodium ABG Potassium ABG Chloride ABG Glucose Oxyhemoglobin Sodium Potassium Chloride Carbon Dioxide BUN Creatinine Glucose POC Glucose 149 H 233 H 156 H Lactic Acid Calcium Magnesium Ferritin Total Bilirubin Direct Bilirubin AST ALT Alkaline Phosphatase Lactate Dehydrogenase C-Reactive Protein Total Protein Albumin Triglycerides Arterial Blood Glucose Arterial Blood Ionized Calcium Urine WBC (Auto) Coronavirus (PCR) SARS-CoV-2 IgG Ab Crossmatch 06/04/20 06/04/20 06/04/20 19:01 20:53 23:41 WBC RBC 3.18 L Hgb 10.8 L Hct 31.8 L MCV 100 H MCH 34 H MCHC RDW Lymph % (Auto) Lymph # (Auto) Seg Neutrophils % Seg Neuts % (Manual) 86.0 H Lymphocytes % (Manual) 10.0 L Nucleated RBC % 1.0 H Seg Neutrophils # Seg Neutrophils # Man 8.5 H Lymphocytes # (Manual) 1.0 L Monocytes # (Manual) PT INR APTT D-Dimer ABG pH POC ABG pCO2 POC ABG pO2 ABG pO2 ABG HCO3 ABG O2 Saturation ABG Base Excess ABG Hemoglobin ABG Oxyhemoglobin ABG Sodium ABG Potassium ABG Chloride ABG Glucose Oxyhemoglobin Sodium Potassium 3.4 L D Chloride 96.5 L Carbon Dioxide 41 H* BUN 27 H Creatinine 0.5 L Glucose 173 H POC Glucose 217 H Lactic Acid Calcium Magnesium Ferritin Total Bilirubin Direct Bilirubin AST ALT Alkaline Phosphatase Lactate Dehydrogenase C-Reactive Protein Total Protein Albumin Triglycerides Arterial Blood Glucose Arterial Blood Ionized Calcium Urine WBC (Auto) Coronavirus (PCR) SARS-CoV-2 IgG Ab Crossmatch 06/05/20 06/05/20 06/05/20 06:05 11:54 12:35 WBC RBC Hgb Hct MCV MCH MCHC RDW Lymph % (Auto) Lymph # (Auto) Seg Neutrophils % Seg Neuts % (Manual) Lymphocytes % (Manual) Nucleated RBC % Seg Neutrophils # Seg Neutrophils # Man Lymphocytes # (Manual) Monocytes # (Manual) PT INR APTT D-Dimer ABG pH POC ABG pCO2 POC ABG pO2 ABG pO2 127.9 H ABG HCO3 41.1 H ABG O2 Saturation ABG Base Excess 13.0 H ABG Hemoglobin 13.4 L ABG Oxyhemoglobin ABG Sodium ABG Potassium ABG Chloride ABG Glucose Oxyhemoglobin Sodium Potassium Chloride Carbon Dioxide BUN Creatinine Glucose POC Glucose 137 H 211 H Lactic Acid Calcium Magnesium Ferritin Total Bilirubin Direct Bilirubin AST ALT Alkaline Phosphatase Lactate Dehydrogenase C-Reactive Protein Total Protein Albumin Triglycerides Arterial Blood Glucose Arterial Blood Ionized Calcium Urine WBC (Auto) Coronavirus (PCR) SARS-CoV-2 IgG Ab Crossmatch 06/05/20 06/05/20 06/06/20 17:03 23:49 04:42 WBC RBC Hgb Hct MCV MCH MCHC RDW Lymph % (Auto) Lymph # (Auto) Seg Neutrophils % Seg Neuts % (Manual) Lymphocytes % (Manual) Nucleated RBC % Seg Neutrophils # Seg Neutrophils # Man Lymphocytes # (Manual) Monocytes # (Manual) PT INR APTT D-Dimer ABG pH POC ABG pCO2 56.1 H POC ABG pO2 52.5 L ABG pO2 ABG HCO3 ABG O2 Saturation ABG Base Excess ABG Hemoglobin 11.7 L ABG Oxyhemoglobin ABG Sodium ABG Potassium 3.3 L ABG Chloride 95.0 L ABG Glucose 156 H Oxyhemoglobin Sodium Potassium Chloride Carbon Dioxide BUN Creatinine Glucose POC Glucose 159 H 194 H Lactic Acid Calcium Magnesium Ferritin Total Bilirubin Direct Bilirubin AST ALT Alkaline Phosphatase Lactate Dehydrogenase C-Reactive Protein Total Protein Albumin Triglycerides Arterial Blood Glucose 156 H Arterial Blood Ionized Calcium Urine WBC (Auto) Coronavirus (PCR) SARS-CoV-2 IgG Ab Crossmatch 06/06/20 06/06/20 06/06/20 05:57 12:06 17:38 WBC RBC Hgb Hct MCV MCH MCHC RDW Lymph % (Auto) Lymph # (Auto) Seg Neutrophils % Seg Neuts % (Manual) Lymphocytes % (Manual) Nucleated RBC % Seg Neutrophils # Seg Neutrophils # Man Lymphocytes # (Manual) Monocytes # (Manual) PT INR APTT D-Dimer ABG pH POC ABG pCO2 POC ABG pO2 ABG pO2 ABG HCO3 ABG O2 Saturation ABG Base Excess ABG Hemoglobin ABG Oxyhemoglobin ABG Sodium ABG Potassium ABG Chloride ABG Glucose Oxyhemoglobin Sodium Potassium Chloride Carbon Dioxide BUN Creatinine Glucose POC Glucose 144 H 230 H 162 H Lactic Acid Calcium Magnesium Ferritin Total Bilirubin Direct Bilirubin AST ALT Alkaline Phosphatase Lactate Dehydrogenase C-Reactive Protein Total Protein Albumin Triglycerides Arterial Blood Glucose Arterial Blood Ionized Calcium Urine WBC (Auto) Coronavirus (PCR) SARS-CoV-2 IgG Ab Crossmatch 06/06/20 06/07/20 06/07/20 23:50 04:34 06:03 WBC RBC Hgb Hct MCV MCH MCHC RDW Lymph % (Auto) Lymph # (Auto) Seg Neutrophils % Seg Neuts % (Manual) Lymphocytes % (Manual) Nucleated RBC % Seg Neutrophils # Seg Neutrophils # Man Lymphocytes # (Manual) Monocytes # (Manual) PT INR APTT D-Dimer ABG pH 7.511 H POC ABG pCO2 53.5 H POC ABG pO2 114.5 H ABG pO2 ABG HCO3 ABG O2 Saturation ABG Base Excess ABG Hemoglobin 9.4 L ABG Oxyhemoglobin ABG Sodium 134.5 L ABG Potassium ABG Chloride 94.0 L ABG Glucose 186 H Oxyhemoglobin Sodium Potassium Chloride Carbon Dioxide BUN Creatinine Glucose POC Glucose 181 H 155 H Lactic Acid Calcium Magnesium Ferritin Total Bilirubin Direct Bilirubin AST ALT Alkaline Phosphatase Lactate Dehydrogenase C-Reactive Protein Total Protein Albumin Triglycerides Arterial Blood Glucose 186 H Arterial Blood Ionized Calcium 4.5 L Urine WBC (Auto) Coronavirus (PCR) SARS-CoV-2 IgG Ab Crossmatch 06/07/20 06/07/20 06/07/20 13:41 14:58 14:58 WBC RBC 2.72 L Hgb 9.3 L Hct 27.2 L MCV 100 H MCH 34 H MCHC RDW Lymph % (Auto) Lymph # (Auto) Seg Neutrophils % Seg Neuts % (Manual) Lymphocytes % (Manual) Nucleated RBC % Seg Neutrophils # Seg Neutrophils # Man Lymphocytes # (Manual) Monocytes # (Manual) PT INR APTT D-Dimer ABG pH POC ABG pCO2 POC ABG pO2 ABG pO2 ABG HCO3 ABG O2 Saturation ABG Base Excess ABG Hemoglobin ABG Oxyhemoglobin ABG Sodium ABG Potassium ABG Chloride ABG Glucose Oxyhemoglobin Sodium Potassium Chloride 93.5 L Carbon Dioxide 39 H BUN 22 H Creatinine 0.4 L Glucose 188 H POC Glucose 201 H Lactic Acid Calcium Magnesium Ferritin Total Bilirubin Direct Bilirubin AST 61 H ALT 273 H Alkaline Phosphatase Lactate Dehydrogenase C-Reactive Protein Total Protein 5.9 L Albumin 2.7 L Triglycerides Arterial Blood Glucose Arterial Blood Ionized Calcium Urine WBC (Auto) Coronavirus (PCR) SARS-CoV-2 IgG Ab Crossmatch 06/07/20 06/08/20 06/08/20 23:18 05:31 12:07 WBC RBC Hgb Hct MCV MCH MCHC RDW Lymph % (Auto) Lymph # (Auto) Seg Neutrophils % Seg Neuts % (Manual) Lymphocytes % (Manual) Nucleated RBC % Seg Neutrophils # Seg Neutrophils # Man Lymphocytes # (Manual) Monocytes # (Manual) PT INR APTT D-Dimer ABG pH POC ABG pCO2 POC ABG pO2 ABG pO2 ABG HCO3 ABG O2 Saturation ABG Base Excess ABG Hemoglobin ABG Oxyhemoglobin ABG Sodium ABG Potassium ABG Chloride ABG Glucose Oxyhemoglobin Sodium Potassium Chloride Carbon Dioxide BUN Creatinine Glucose POC Glucose 214 H 129 H 179 H Lactic Acid Calcium Magnesium Ferritin Total Bilirubin Direct Bilirubin AST ALT Alkaline Phosphatase Lactate Dehydrogenase C-Reactive Protein Total Protein Albumin Triglycerides Arterial Blood Glucose Arterial Blood Ionized Calcium Urine WBC (Auto) Coronavirus (PCR) SARS-CoV-2 IgG Ab Crossmatch 06/08/20 06/08/20 06/09/20 18:18 23:35 05:42 WBC RBC Hgb Hct MCV MCH MCHC RDW Lymph % (Auto) Lymph # (Auto) Seg Neutrophils % Seg Neuts % (Manual) Lymphocytes % (Manual) Nucleated RBC % Seg Neutrophils # Seg Neutrophils # Man Lymphocytes # (Manual) Monocytes # (Manual) PT INR APTT D-Dimer ABG pH POC ABG pCO2 POC ABG pO2 ABG pO2 ABG HCO3 ABG O2 Saturation ABG Base Excess ABG Hemoglobin ABG Oxyhemoglobin ABG Sodium ABG Potassium ABG Chloride ABG Glucose Oxyhemoglobin Sodium Potassium Chloride Carbon Dioxide BUN Creatinine Glucose POC Glucose 172 H 177 H 137 H Lactic Acid Calcium Magnesium Ferritin Total Bilirubin Direct Bilirubin AST ALT Alkaline Phosphatase Lactate Dehydrogenase C-Reactive Protein Total Protein Albumin Triglycerides Arterial Blood Glucose Arterial Blood Ionized Calcium Urine WBC (Auto) Coronavirus (PCR) SARS-CoV-2 IgG Ab Crossmatch 06/09/20 06/09/20 06/09/20 06:20 07:55 07:55 WBC 12.4 H RBC 3.26 L Hgb 11.1 L Hct 33.4 L D MCV 102 H MCH 34 H MCHC RDW Lymph % (Auto) Lymph # (Auto) Seg Neutrophils % Seg Neuts % (Manual) Lymphocytes % (Manual) Nucleated RBC % Seg Neutrophils # Seg Neutrophils # Man Lymphocytes # (Manual) Monocytes # (Manual) PT INR APTT D-Dimer ABG pH 7.466 H POC ABG pCO2 50.7 H POC ABG pO2 53.0 L ABG pO2 ABG HCO3 ABG O2 Saturation ABG Base Excess ABG Hemoglobin ABG Oxyhemoglobin ABG Sodium ABG Potassium 2.9 L ABG Chloride 93.0 L ABG Glucose 138 H Oxyhemoglobin Sodium Potassium 3.0 L Chloride 92.3 L Carbon Dioxide 37 H BUN 21 H Creatinine 0.6 L Glucose 120 H POC Glucose Lactic Acid Calcium Magnesium Ferritin Total Bilirubin Direct Bilirubin AST ALT Alkaline Phosphatase Lactate Dehydrogenase C-Reactive Protein Total Protein Albumin Triglycerides Arterial Blood Glucose 138 H Arterial Blood Ionized Calcium 4.5 L Urine WBC (Auto) Coronavirus (PCR) SARS-CoV-2 IgG Ab Crossmatch 06/09/20 06/09/20 06/10/20 11:22 18:32 04:46 WBC RBC Hgb Hct MCV MCH MCHC RDW Lymph % (Auto) Lymph # (Auto) Seg Neutrophils % Seg Neuts % (Manual) Lymphocytes % (Manual) Nucleated RBC % Seg Neutrophils # Seg Neutrophils # Man Lymphocytes # (Manual) Monocytes # (Manual) PT INR APTT D-Dimer ABG pH 7.501 H POC ABG pCO2 POC ABG pO2 126.5 H ABG pO2 ABG HCO3 ABG O2 Saturation ABG Base Excess ABG Hemoglobin 10.3 L ABG Oxyhemoglobin ABG Sodium ABG Potassium ABG Chloride ABG Glucose 220 H Oxyhemoglobin Sodium Potassium Chloride Carbon Dioxide BUN Creatinine Glucose POC Glucose 117 H 121 H Lactic Acid Calcium Magnesium Ferritin Total Bilirubin Direct Bilirubin AST ALT Alkaline Phosphatase Lactate Dehydrogenase C-Reactive Protein Total Protein Albumin Triglycerides Arterial Blood Glucose 220 H Arterial Blood Ionized Calcium Urine WBC (Auto) Coronavirus (PCR) SARS-CoV-2 IgG Ab Crossmatch 06/10/20 06/10/20 06/10/20 05:30 09:38 12:03 WBC RBC Hgb Hct MCV MCH MCHC RDW Lymph % (Auto) Lymph # (Auto) Seg Neutrophils % Seg Neuts % (Manual) Lymphocytes % (Manual) Nucleated RBC % Seg Neutrophils # Seg Neutrophils # Man Lymphocytes # (Manual) Monocytes # (Manual) PT INR APTT D-Dimer ABG pH POC ABG pCO2 POC ABG pO2 ABG pO2 ABG HCO3 ABG O2 Saturation ABG Base Excess ABG Hemoglobin ABG Oxyhemoglobin ABG Sodium ABG Potassium ABG Chloride ABG Glucose Oxyhemoglobin Sodium Potassium Chloride Carbon Dioxide BUN Creatinine Glucose POC Glucose 181 H 204 H Lactic Acid Calcium Magnesium Ferritin Total Bilirubin Direct Bilirubin AST ALT Alkaline Phosphatase Lactate Dehydrogenase C-Reactive Protein Total Protein Albumin Triglycerides 738 H Arterial Blood Glucose Arterial Blood Ionized Calcium Urine WBC (Auto) Coronavirus (PCR) SARS-CoV-2 IgG Ab Crossmatch 06/10/20 06/11/20 06/11/20 17:17 00:04 04:38 WBC RBC Hgb Hct MCV MCH MCHC RDW Lymph % (Auto) Lymph # (Auto) Seg Neutrophils % Seg Neuts % (Manual) Lymphocytes % (Manual) Nucleated RBC % Seg Neutrophils # Seg Neutrophils # Man Lymphocytes # (Manual) Monocytes # (Manual) PT INR APTT D-Dimer ABG pH 7.479 H POC ABG pCO2 POC ABG pO2 76.7 L ABG pO2 ABG HCO3 ABG O2 Saturation ABG Base Excess ABG Hemoglobin 9.8 L ABG Oxyhemoglobin ABG Sodium 135.8 L ABG Potassium ABG Chloride ABG Glucose 238 H Oxyhemoglobin Sodium Potassium Chloride Carbon Dioxide BUN Creatinine Glucose POC Glucose 156 H 178 H Lactic Acid Calcium Magnesium Ferritin Total Bilirubin Direct Bilirubin AST ALT Alkaline Phosphatase Lactate Dehydrogenase C-Reactive Protein Total Protein Albumin Triglycerides Arterial Blood Glucose 238 H Arterial Blood Ionized Calcium Urine WBC (Auto) Coronavirus (PCR) SARS-CoV-2 IgG Ab Crossmatch 06/11/20 06/11/20 06/11/20 05:21 06:52 11:50 WBC RBC Hgb Hct MCV MCH MCHC RDW Lymph % (Auto) Lymph # (Auto) Seg Neutrophils % Seg Neuts % (Manual) Lymphocytes % (Manual) Nucleated RBC % Seg Neutrophils # Seg Neutrophils # Man Lymphocytes # (Manual) Monocytes # (Manual) PT INR APTT D-Dimer ABG pH POC ABG pCO2 POC ABG pO2 ABG pO2 ABG HCO3 ABG O2 Saturation ABG Base Excess ABG Hemoglobin ABG Oxyhemoglobin ABG Sodium ABG Potassium ABG Chloride ABG Glucose Oxyhemoglobin Sodium Potassium Chloride Carbon Dioxide BUN Creatinine Glucose POC Glucose 215 H 187 H Lactic Acid Calcium Magnesium Ferritin Total Bilirubin Direct Bilirubin AST ALT Alkaline Phosphatase Lactate Dehydrogenase C-Reactive Protein Total Protein Albumin Triglycerides 331 H Arterial Blood Glucose Arterial Blood Ionized Calcium Urine WBC (Auto) Coronavirus (PCR) SARS-CoV-2 IgG Ab Crossmatch 06/11/20 06/11/20 06/12/20 17:49 23:35 04:52 WBC RBC Hgb Hct MCV MCH MCHC RDW Lymph % (Auto) Lymph # (Auto) Seg Neutrophils % Seg Neuts % (Manual) Lymphocytes % (Manual) Nucleated RBC % Seg Neutrophils # Seg Neutrophils # Man Lymphocytes # (Manual) Monocytes # (Manual) PT INR APTT D-Dimer ABG pH 7.486 H POC ABG pCO2 POC ABG pO2 ABG pO2 ABG HCO3 ABG O2 Saturation ABG Base Excess ABG Hemoglobin 9.4 L ABG Oxyhemoglobin ABG Sodium ABG Potassium 3.2 L ABG Chloride ABG Glucose 209 H Oxyhemoglobin Sodium Potassium Chloride Carbon Dioxide BUN Creatinine Glucose POC Glucose 211 H 200 H Lactic Acid Calcium Magnesium Ferritin Total Bilirubin Direct Bilirubin AST ALT Alkaline Phosphatase Lactate Dehydrogenase C-Reactive Protein Total Protein Albumin Triglycerides Arterial Blood Glucose 209 H Arterial Blood Ionized Calcium Urine WBC (Auto) Coronavirus (PCR) SARS-CoV-2 IgG Ab Crossmatch 06/12/20 06/12/20 06/12/20 05:13 11:47 18:33 WBC RBC Hgb Hct MCV MCH MCHC RDW Lymph % (Auto) Lymph # (Auto) Seg Neutrophils % Seg Neuts % (Manual) Lymphocytes % (Manual) Nucleated RBC % Seg Neutrophils # Seg Neutrophils # Man Lymphocytes # (Manual) Monocytes # (Manual) PT INR APTT D-Dimer ABG pH POC ABG pCO2 POC ABG pO2 ABG pO2 ABG HCO3 ABG O2 Saturation ABG Base Excess ABG Hemoglobin ABG Oxyhemoglobin ABG Sodium ABG Potassium ABG Chloride ABG Glucose Oxyhemoglobin Sodium Potassium Chloride Carbon Dioxide BUN Creatinine Glucose POC Glucose 174 H 214 H 194 H Lactic Acid Calcium Magnesium Ferritin Total Bilirubin Direct Bilirubin AST ALT Alkaline Phosphatase Lactate Dehydrogenase C-Reactive Protein Total Protein Albumin Triglycerides Arterial Blood Glucose Arterial Blood Ionized Calcium Urine WBC (Auto) Coronavirus (PCR) SARS-CoV-2 IgG Ab Crossmatch 06/12/20 06/13/20 06/13/20 23:49 05:41 12:30 WBC RBC Hgb Hct MCV MCH MCHC RDW Lymph % (Auto) Lymph # (Auto) Seg Neutrophils % Seg Neuts % (Manual) Lymphocytes % (Manual) Nucleated RBC % Seg Neutrophils # Seg Neutrophils # Man Lymphocytes # (Manual) Monocytes # (Manual) PT INR APTT D-Dimer ABG pH POC ABG pCO2 POC ABG pO2 ABG pO2 ABG HCO3 ABG O2 Saturation ABG Base Excess ABG Hemoglobin ABG Oxyhemoglobin ABG Sodium ABG Potassium ABG Chloride ABG Glucose Oxyhemoglobin Sodium Potassium Chloride Carbon Dioxide BUN Creatinine Glucose POC Glucose 160 H 150 H 181 H Lactic Acid Calcium Magnesium Ferritin Total Bilirubin Direct Bilirubin AST ALT Alkaline Phosphatase Lactate Dehydrogenase C-Reactive Protein Total Protein Albumin Triglycerides Arterial Blood Glucose Arterial Blood Ionized Calcium Urine WBC (Auto) Coronavirus (PCR) SARS-CoV-2 IgG Ab Crossmatch 06/13/20 06/13/20 06/13/20 14:14 17:48 23:27 WBC 12.8 H RBC 2.33 L Hgb 8.0 L Hct 23.3 L MCV 100 H MCH 34 H MCHC RDW 15.7 H Lymph % (Auto) Lymph # (Auto) Seg Neutrophils % Seg Neuts % (Manual) 85.0 H Lymphocytes % (Manual) 10.0 L Nucleated RBC % Seg Neutrophils # Seg Neutrophils # Man 10.9 H Lymphocytes # (Manual) Monocytes # (Manual) PT INR APTT D-Dimer ABG pH POC ABG pCO2 POC ABG pO2 ABG pO2 ABG HCO3 ABG O2 Saturation ABG Base Excess ABG Hemoglobin ABG Oxyhemoglobin ABG Sodium ABG Potassium ABG Chloride ABG Glucose Oxyhemoglobin Sodium Potassium Chloride Carbon Dioxide BUN Creatinine Glucose POC Glucose 173 H 154 H Lactic Acid Calcium Magnesium Ferritin Total Bilirubin Direct Bilirubin AST ALT Alkaline Phosphatase Lactate Dehydrogenase C-Reactive Protein Total Protein Albumin Triglycerides Arterial Blood Glucose Arterial Blood Ionized Calcium Urine WBC (Auto) Coronavirus (PCR) SARS-CoV-2 IgG Ab Crossmatch 06/14/20 06/14/20 06/14/20 03:58 05:21 07:15 WBC 26.2 H RBC 2.97 L Hgb 9.7 L Hct 29.9 L D MCV 101 H MCH 33 H MCHC RDW 15.3 H Lymph % (Auto) Lymph # (Auto) Seg Neutrophils % Seg Neuts % (Manual) 79.0 H Lymphocytes % (Manual) 5.0 L Nucleated RBC % 3.0 H Seg Neutrophils # Seg Neutrophils # Man 20.7 H Lymphocytes # (Manual) Monocytes # (Manual) 1.3 H PT INR APTT D-Dimer ABG pH POC ABG pCO2 51.5 H POC ABG pO2 70.0 L ABG pO2 ABG HCO3 ABG O2 Saturation ABG Base Excess ABG Hemoglobin 10.1 L ABG Oxyhemoglobin ABG Sodium 131.5 L ABG Potassium 3.1 L ABG Chloride 93.0 L ABG Glucose 188 H Oxyhemoglobin Sodium Potassium Chloride Carbon Dioxide BUN Creatinine Glucose POC Glucose 147 H Lactic Acid Calcium Magnesium Ferritin Total Bilirubin Direct Bilirubin AST ALT Alkaline Phosphatase Lactate Dehydrogenase C-Reactive Protein Total Protein Albumin Triglycerides Arterial Blood Glucose 188 H Arterial Blood Ionized Calcium Urine WBC (Auto) Coronavirus (PCR) SARS-CoV-2 IgG Ab Crossmatch 06/14/20 06/14/20 06/14/20 07:15 11:30 11:50 WBC RBC Hgb Hct MCV MCH MCHC RDW Lymph % (Auto) Lymph # (Auto) Seg Neutrophils % Seg Neuts % (Manual) Lymphocytes % (Manual) Nucleated RBC % Seg Neutrophils # Seg Neutrophils # Man Lymphocytes # (Manual) Monocytes # (Manual) PT INR APTT D-Dimer ABG pH POC ABG pCO2 POC ABG pO2 ABG pO2 ABG HCO3 ABG O2 Saturation ABG Base Excess ABG Hemoglobin ABG Oxyhemoglobin ABG Sodium ABG Potassium ABG Chloride ABG Glucose Oxyhemoglobin Sodium 135 L Potassium 3.5 L Chloride 90.4 L Carbon Dioxide 38 H BUN Creatinine 0.5 L Glucose 190 H POC Glucose 176 H Lactic Acid Calcium Magnesium Ferritin 1496.0 H Total Bilirubin Direct Bilirubin AST ALT 81 H Alkaline Phosphatase Lactate Dehydrogenase C-Reactive Protein Total Protein Albumin 2.9 L Triglycerides Arterial Blood Glucose Arterial Blood Ionized Calcium Urine WBC (Auto) Coronavirus (PCR) SARS-CoV-2 IgG Ab Crossmatch 06/14/20 06/15/20 06/15/20 23:31 04:00 05:00 WBC RBC Hgb Hct MCV MCH MCHC RDW Lymph % (Auto) Lymph # (Auto) Seg Neutrophils % Seg Neuts % (Manual) Lymphocytes % (Manual) Nucleated RBC % Seg Neutrophils # Seg Neutrophils # Man Lymphocytes # (Manual) Monocytes # (Manual) PT INR APTT D-Dimer ABG pH POC ABG pCO2 POC ABG pO2 ABG pO2 ABG HCO3 ABG O2 Saturation ABG Base Excess ABG Hemoglobin ABG Oxyhemoglobin ABG Sodium ABG Potassium ABG Chloride ABG Glucose Oxyhemoglobin Sodium 133 L Potassium Chloride 91.1 L Carbon Dioxide 34 H BUN Creatinine 0.4 L Glucose 159 H POC Glucose 200 H Lactic Acid Calcium Magnesium Ferritin Total Bilirubin 2.00 H Direct Bilirubin AST 47 H ALT 77 H Alkaline Phosphatase Lactate Dehydrogenase C-Reactive Protein Total Protein Albumin 2.6 L Triglycerides 152 H Arterial Blood Glucose Arterial Blood Ionized Calcium Urine WBC (Auto) Coronavirus (PCR) SARS-CoV-2 IgG Ab Crossmatch 06/15/20 06/15/20 06/15/20 05:35 06:27 11:38 WBC RBC Hgb Hct MCV MCH MCHC RDW Lymph % (Auto) Lymph # (Auto) Seg Neutrophils % Seg Neuts % (Manual) Lymphocytes % (Manual) Nucleated RBC % Seg Neutrophils # Seg Neutrophils # Man Lymphocytes # (Manual) Monocytes # (Manual) PT INR APTT D-Dimer ABG pH POC ABG pCO2 61.0 H POC ABG pO2 67.9 L ABG pO2 ABG HCO3 ABG O2 Saturation ABG Base Excess ABG Hemoglobin 10.4 L ABG Oxyhemoglobin ABG Sodium 132.7 L ABG Potassium 3.3 L ABG Chloride 92.0 L ABG Glucose 158 H Oxyhemoglobin Sodium Potassium Chloride Carbon Dioxide BUN Creatinine Glucose POC Glucose 148 H 197 H Lactic Acid Calcium Magnesium Ferritin Total Bilirubin Direct Bilirubin AST ALT Alkaline Phosphatase Lactate Dehydrogenase C-Reactive Protein Total Protein Albumin Triglycerides Arterial Blood Glucose 158 H Arterial Blood Ionized Calcium Urine WBC (Auto) Coronavirus (PCR) SARS-CoV-2 IgG Ab Crossmatch 06/15/20 06/15/20 06/16/20 17:29 Unknown 00:01 WBC 20.7 H RBC 2.57 L Hgb 8.9 L Hct 25.8 L MCV 101 H MCH 35 H MCHC 35 H RDW 16.0 H Lymph % (Auto) Lymph # (Auto) Seg Neutrophils % Seg Neuts % (Manual) 83.0 H Lymphocytes % (Manual) 8.0 L Nucleated RBC % Seg Neutrophils # Seg Neutrophils # Man 17.2 H Lymphocytes # (Manual) Monocytes # (Manual) 1.2 H PT INR APTT D-Dimer ABG pH POC ABG pCO2 POC ABG pO2 ABG pO2 ABG HCO3 ABG O2 Saturation ABG Base Excess ABG Hemoglobin ABG Oxyhemoglobin ABG Sodium ABG Potassium ABG Chloride ABG Glucose Oxyhemoglobin Sodium Potassium Chloride Carbon Dioxide BUN Creatinine Glucose POC Glucose 231 H 257 H Lactic Acid Calcium Magnesium Ferritin Total Bilirubin Direct Bilirubin AST ALT Alkaline Phosphatase Lactate Dehydrogenase C-Reactive Protein Total Protein Albumin Triglycerides Arterial Blood Glucose Arterial Blood Ionized Calcium Urine WBC (Auto) Coronavirus (PCR) SARS-CoV-2 IgG Ab Crossmatch 06/16/20 06/16/20 06/16/20 04:00 04:00 05:22 WBC 13.8 H RBC 2.03 L Hgb 7.6 L Hct 20.7 L MCV 102 H MCH 37 H MCHC 37 H RDW 16.2 H Lymph % (Auto) 4.4 L Lymph # (Auto) 0.6 L Seg Neutrophils % Seg Neuts % (Manual) Lymphocytes % (Manual) Nucleated RBC % Seg Neutrophils # 12.7 H Seg Neutrophils # Man Lymphocytes # (Manual) Monocytes # (Manual) PT INR APTT D-Dimer ABG pH POC ABG pCO2 POC ABG pO2 ABG pO2 ABG HCO3 ABG O2 Saturation ABG Base Excess ABG Hemoglobin ABG Oxyhemoglobin ABG Sodium ABG Potassium ABG Chloride ABG Glucose Oxyhemoglobin Sodium 130 L Potassium Chloride 88.9 L Carbon Dioxide 36 H BUN Creatinine 0.3 L Glucose 276 H POC Glucose 250 H Lactic Acid Calcium Magnesium Ferritin Total Bilirubin Direct Bilirubin AST ALT Alkaline Phosphatase Lactate Dehydrogenase C-Reactive Protein Total Protein Albumin Triglycerides Arterial Blood Glucose Arterial Blood Ionized Calcium Urine WBC (Auto) Coronavirus (PCR) SARS-CoV-2 IgG Ab Crossmatch 06/16/20 06/16/20 06/17/20 12:44 18:18 00:39 WBC RBC Hgb Hct MCV MCH MCHC RDW Lymph % (Auto) Lymph # (Auto) Seg Neutrophils % Seg Neuts % (Manual) Lymphocytes % (Manual) Nucleated RBC % Seg Neutrophils # Seg Neutrophils # Man Lymphocytes # (Manual) Monocytes # (Manual) PT INR APTT D-Dimer ABG pH POC ABG pCO2 POC ABG pO2 ABG pO2 ABG HCO3 ABG O2 Saturation ABG Base Excess ABG Hemoglobin ABG Oxyhemoglobin ABG Sodium ABG Potassium ABG Chloride ABG Glucose Oxyhemoglobin Sodium Potassium Chloride Carbon Dioxide BUN Creatinine Glucose POC Glucose 279 H 239 H 247 H Lactic Acid Calcium Magnesium Ferritin Total Bilirubin Direct Bilirubin AST ALT Alkaline Phosphatase Lactate Dehydrogenase C-Reactive Protein Total Protein Albumin Triglycerides Arterial Blood Glucose Arterial Blood Ionized Calcium Urine WBC (Auto) Coronavirus (PCR) SARS-CoV-2 IgG Ab Crossmatch 06/17/20 06/17/20 06/17/20 03:40 04:08 10:54 WBC RBC Hgb Hct MCV MCH MCHC RDW Lymph % (Auto) Lymph # (Auto) Seg Neutrophils % Seg Neuts % (Manual) Lymphocytes % (Manual) Nucleated RBC % Seg Neutrophils # Seg Neutrophils # Man Lymphocytes # (Manual) Monocytes # (Manual) PT INR APTT D-Dimer ABG pH POC ABG pCO2 65.7 H POC ABG pO2 ABG pO2 ABG HCO3 ABG O2 Saturation ABG Base Excess ABG Hemoglobin 11.9 L ABG Oxyhemoglobin ABG Sodium ABG Potassium ABG Chloride 93.0 L ABG Glucose 244 H Oxyhemoglobin Sodium Potassium Chloride Carbon Dioxide BUN Creatinine Glucose POC Glucose 221 H 248 H Lactic Acid Calcium Magnesium Ferritin Total Bilirubin Direct Bilirubin AST ALT Alkaline Phosphatase Lactate Dehydrogenase C-Reactive Protein Total Protein Albumin Triglycerides Arterial Blood Glucose 244 H Arterial Blood Ionized Calcium Urine WBC (Auto) Coronavirus (PCR) SARS-CoV-2 IgG Ab Crossmatch 06/17/20 06/17/20 06/17/20 17:47 23:11 23:29 WBC RBC Hgb Hct MCV MCH MCHC RDW Lymph % (Auto) Lymph # (Auto) Seg Neutrophils % Seg Neuts % (Manual) Lymphocytes % (Manual) Nucleated RBC % Seg Neutrophils # Seg Neutrophils # Man Lymphocytes # (Manual) Monocytes # (Manual) PT INR APTT D-Dimer ABG pH POC ABG pCO2 85.2 H POC ABG pO2 48.4 L ABG pO2 ABG HCO3 ABG O2 Saturation ABG Base Excess ABG Hemoglobin 8.0 L ABG Oxyhemoglobin ABG Sodium ABG Potassium ABG Chloride 95.0 L ABG Glucose 292 H Oxyhemoglobin Sodium Potassium Chloride Carbon Dioxide BUN Creatinine Glucose POC Glucose 245 H 252 H Lactic Acid Calcium Magnesium Ferritin Total Bilirubin Direct Bilirubin AST ALT Alkaline Phosphatase Lactate Dehydrogenase C-Reactive Protein Total Protein Albumin Triglycerides Arterial Blood Glucose 292 H Arterial Blood Ionized Calcium Urine WBC (Auto) Coronavirus (PCR) SARS-CoV-2 IgG Ab Crossmatch 06/18/20 06/18/20 06/18/20 03:14 05:34 11:47 WBC RBC Hgb Hct MCV MCH MCHC RDW Lymph % (Auto) Lymph # (Auto) Seg Neutrophils % Seg Neuts % (Manual) Lymphocytes % (Manual) Nucleated RBC % Seg Neutrophils # Seg Neutrophils # Man Lymphocytes # (Manual) Monocytes # (Manual) PT INR APTT D-Dimer ABG pH POC ABG pCO2 65.4 H POC ABG pO2 160.7 H ABG pO2 ABG HCO3 ABG O2 Saturation ABG Base Excess ABG Hemoglobin 7.8 L ABG Oxyhemoglobin ABG Sodium ABG Potassium ABG Chloride 95.0 L ABG Glucose 251 H Oxyhemoglobin Sodium Potassium Chloride Carbon Dioxide BUN Creatinine Glucose POC Glucose 243 H 263 H Lactic Acid Calcium Magnesium Ferritin Total Bilirubin Direct Bilirubin AST ALT Alkaline Phosphatase Lactate Dehydrogenase C-Reactive Protein Total Protein Albumin Triglycerides Arterial Blood Glucose 251 H Arterial Blood Ionized Calcium Urine WBC (Auto) Coronavirus (PCR) SARS-CoV-2 IgG Ab Crossmatch 06/18/20 06/18/20 06/19/20 17:31 23:33 04:32 WBC RBC Hgb Hct MCV MCH MCHC RDW Lymph % (Auto) Lymph # (Auto) Seg Neutrophils % Seg Neuts % (Manual) Lymphocytes % (Manual) Nucleated RBC % Seg Neutrophils # Seg Neutrophils # Man Lymphocytes # (Manual) Monocytes # (Manual) PT INR APTT D-Dimer ABG pH POC ABG pCO2 83.1 H POC ABG pO2 65.8 L ABG pO2 ABG HCO3 ABG O2 Saturation ABG Base Excess ABG Hemoglobin 8.9 L ABG Oxyhemoglobin ABG Sodium ABG Potassium ABG Chloride 96.0 L ABG Glucose 297 H Oxyhemoglobin Sodium Potassium Chloride Carbon Dioxide BUN Creatinine Glucose POC Glucose 286 H 238 H Lactic Acid Calcium Magnesium Ferritin Total Bilirubin Direct Bilirubin AST ALT Alkaline Phosphatase Lactate Dehydrogenase C-Reactive Protein Total Protein Albumin Triglycerides Arterial Blood Glucose 297 H Arterial Blood Ionized Calcium Urine WBC (Auto) Coronavirus (PCR) SARS-CoV-2 IgG Ab Crossmatch 06/19/20 06/19/20 06/19/20 05:55 11:20 17:12 WBC RBC Hgb Hct MCV MCH MCHC RDW Lymph % (Auto) Lymph # (Auto) Seg Neutrophils % Seg Neuts % (Manual) Lymphocytes % (Manual) Nucleated RBC % Seg Neutrophils # Seg Neutrophils # Man Lymphocytes # (Manual) Monocytes # (Manual) PT INR APTT D-Dimer ABG pH POC ABG pCO2 POC ABG pO2 ABG pO2 ABG HCO3 ABG O2 Saturation ABG Base Excess ABG Hemoglobin ABG Oxyhemoglobin ABG Sodium ABG Potassium ABG Chloride ABG Glucose Oxyhemoglobin Sodium Potassium Chloride Carbon Dioxide BUN Creatinine Glucose POC Glucose 274 H 282 H 298 H Lactic Acid Calcium Magnesium Ferritin Total Bilirubin Direct Bilirubin AST ALT Alkaline Phosphatase Lactate Dehydrogenase C-Reactive Protein Total Protein Albumin Triglycerides Arterial Blood Glucose Arterial Blood Ionized Calcium Urine WBC (Auto) Coronavirus (PCR) SARS-CoV-2 IgG Ab Crossmatch 06/19/20 06/20/20 06/20/20 23:08 03:33 06:01 WBC RBC Hgb Hct MCV MCH MCHC RDW Lymph % (Auto) Lymph # (Auto) Seg Neutrophils % Seg Neuts % (Manual) Lymphocytes % (Manual) Nucleated RBC % Seg Neutrophils # Seg Neutrophils # Man Lymphocytes # (Manual) Monocytes # (Manual) PT INR APTT D-Dimer ABG pH POC ABG pCO2 POC ABG pO2 ABG pO2 69.9 L ABG HCO3 50.8 H ABG O2 Saturation ABG Base Excess 24.2 H ABG Hemoglobin 5.8 L ABG Oxyhemoglobin ABG Sodium ABG Potassium ABG Chloride ABG Glucose Oxyhemoglobin Sodium Potassium Chloride Carbon Dioxide BUN Creatinine Glucose POC Glucose 293 H 182 H Lactic Acid Calcium Magnesium Ferritin Total Bilirubin Direct Bilirubin AST ALT Alkaline Phosphatase Lactate Dehydrogenase C-Reactive Protein Total Protein Albumin Triglycerides Arterial Blood Glucose Arterial Blood Ionized Calcium Urine WBC (Auto) Coronavirus (PCR) SARS-CoV-2 IgG Ab Crossmatch 06/20/20 06/20/20 06/20/20 11:47 17:46 23:37 WBC RBC Hgb Hct MCV MCH MCHC RDW Lymph % (Auto) Lymph # (Auto) Seg Neutrophils % Seg Neuts % (Manual) Lymphocytes % (Manual) Nucleated RBC % Seg Neutrophils # Seg Neutrophils # Man Lymphocytes # (Manual) Monocytes # (Manual) PT INR APTT D-Dimer ABG pH POC ABG pCO2 POC ABG pO2 ABG pO2 ABG HCO3 ABG O2 Saturation ABG Base Excess ABG Hemoglobin ABG Oxyhemoglobin ABG Sodium ABG Potassium ABG Chloride ABG Glucose Oxyhemoglobin Sodium Potassium Chloride Carbon Dioxide BUN Creatinine Glucose POC Glucose 170 H 215 H 256 H Lactic Acid Calcium Magnesium Ferritin Total Bilirubin Direct Bilirubin AST ALT Alkaline Phosphatase Lactate Dehydrogenase C-Reactive Protein Total Protein Albumin Triglycerides Arterial Blood Glucose Arterial Blood Ionized Calcium Urine WBC (Auto) Coronavirus (PCR) SARS-CoV-2 IgG Ab Crossmatch 06/21/20 06/21/20 06/21/20 04:00 05:14 05:51 WBC RBC Hgb Hct MCV MCH MCHC RDW Lymph % (Auto) Lymph # (Auto) Seg Neutrophils % Seg Neuts % (Manual) Lymphocytes % (Manual) Nucleated RBC % Seg Neutrophils # Seg Neutrophils # Man Lymphocytes # (Manual) Monocytes # (Manual) PT INR APTT D-Dimer ABG pH 7.474 H POC ABG pCO2 POC ABG pO2 ABG pO2 ABG HCO3 52.1 H ABG O2 Saturation ABG Base Excess 23.3 H ABG Hemoglobin 5.3 L ABG Oxyhemoglobin ABG Sodium ABG Potassium ABG Chloride ABG Glucose Oxyhemoglobin 93.8 L Sodium Potassium Chloride Carbon Dioxide BUN Creatinine Glucose POC Glucose 122 H 129 H Lactic Acid Calcium Magnesium Ferritin Total Bilirubin Direct Bilirubin AST ALT Alkaline Phosphatase Lactate Dehydrogenase C-Reactive Protein Total Protein Albumin Triglycerides Arterial Blood Glucose Arterial Blood Ionized Calcium Urine WBC (Auto) Coronavirus (PCR) SARS-CoV-2 IgG Ab Crossmatch 06/21/20 06/21/20 06/21/20 11:00 11:00 11:42 WBC 14.2 H RBC 1.85 L Hgb 6.2 L Hct 19.5 L* MCV 105 H MCH 34 H MCHC RDW 18.0 H Lymph % (Auto) Lymph # (Auto) Seg Neutrophils % Seg Neuts % (Manual) Lymphocytes % (Manual) Nucleated RBC % Seg Neutrophils # Seg Neutrophils # Man Lymphocytes # (Manual) Monocytes # (Manual) PT INR APTT D-Dimer ABG pH POC ABG pCO2 POC ABG pO2 ABG pO2 ABG HCO3 ABG O2 Saturation ABG Base Excess ABG Hemoglobin ABG Oxyhemoglobin ABG Sodium ABG Potassium ABG Chloride ABG Glucose Oxyhemoglobin Sodium 147 H Potassium Chloride Carbon Dioxide 51 H* BUN 31 H Creatinine 0.5 L Glucose 224 H POC Glucose 217 H Lactic Acid Calcium Magnesium Ferritin Total Bilirubin Direct Bilirubin AST ALT Alkaline Phosphatase Lactate Dehydrogenase C-Reactive Protein Total Protein Albumin Triglycerides Arterial Blood Glucose Arterial Blood Ionized Calcium Urine WBC (Auto) Coronavirus (PCR) SARS-CoV-2 IgG Ab Crossmatch 06/21/20 06/21/20 06/21/20 14:18 14:30 18:36 WBC RBC Hgb Hct MCV MCH MCHC RDW Lymph % (Auto) Lymph # (Auto) Seg Neutrophils % Seg Neuts % (Manual) Lymphocytes % (Manual) Nucleated RBC % Seg Neutrophils # Seg Neutrophils # Man Lymphocytes # (Manual) Monocytes # (Manual) PT 15.1 H INR 1.19 H APTT D-Dimer ABG pH POC ABG pCO2 POC ABG pO2 ABG pO2 ABG HCO3 ABG O2 Saturation ABG Base Excess ABG Hemoglobin ABG Oxyhemoglobin ABG Sodium ABG Potassium ABG Chloride ABG Glucose Oxyhemoglobin Sodium Potassium Chloride Carbon Dioxide BUN Creatinine Glucose POC Glucose 185 H Lactic Acid Calcium Magnesium Ferritin Total Bilirubin Direct Bilirubin AST ALT Alkaline Phosphatase Lactate Dehydrogenase C-Reactive Protein Total Protein Albumin Triglycerides Arterial Blood Glucose Arterial Blood Ionized Calcium Urine WBC (Auto) Coronavirus (PCR) SARS-CoV-2 IgG Ab Crossmatch See Detail 06/21/20 06/22/20 06/22/20 21:14 03:50 04:00 WBC RBC Hgb Hct MCV MCH MCHC RDW Lymph % (Auto) Lymph # (Auto) Seg Neutrophils % Seg Neuts % (Manual) Lymphocytes % (Manual) Nucleated RBC % Seg Neutrophils # Seg Neutrophils # Man Lymphocytes # (Manual) Monocytes # (Manual) PT INR APTT D-Dimer ABG pH 7.451 H POC ABG pCO2 POC ABG pO2 ABG pO2 ABG HCO3 47.5 H ABG O2 Saturation ABG Base Excess 22.0 H ABG Hemoglobin < 5.1 L ABG Oxyhemoglobin ABG Sodium ABG Potassium ABG Chloride ABG Glucose Oxyhemoglobin 94.1 L Sodium 149 H Potassium 3.5 L Chloride Carbon Dioxide 42 H* D BUN 34 H Creatinine 0.4 L Glucose 219 H POC Glucose 250 H Lactic Acid Calcium Magnesium Ferritin Total Bilirubin Direct Bilirubin AST ALT Alkaline Phosphatase Lactate Dehydrogenase C-Reactive Protein Total Protein Albumin Triglycerides Arterial Blood Glucose Arterial Blood Ionized Calcium Urine WBC (Auto) Coronavirus (PCR) SARS-CoV-2 IgG Ab Crossmatch 06/22/20 06/22/20 06/22/20 12:16 14:29 17:56 WBC RBC Hgb Hct MCV MCH MCHC RDW Lymph % (Auto) Lymph # (Auto) Seg Neutrophils % Seg Neuts % (Manual) Lymphocytes % (Manual) Nucleated RBC % Seg Neutrophils # Seg Neutrophils # Man Lymphocytes # (Manual) Monocytes # (Manual) PT 11.8 L INR APTT 23.5 L D-Dimer ABG pH POC ABG pCO2 POC ABG pO2 ABG pO2 ABG HCO3 ABG O2 Saturation ABG Base Excess ABG Hemoglobin ABG Oxyhemoglobin ABG Sodium ABG Potassium ABG Chloride ABG Glucose Oxyhemoglobin Sodium Potassium Chloride Carbon Dioxide BUN Creatinine Glucose POC Glucose 215 H 215 H Lactic Acid Calcium Magnesium Ferritin Total Bilirubin Direct Bilirubin AST ALT Alkaline Phosphatase Lactate Dehydrogenase C-Reactive Protein Total Protein Albumin Triglycerides Arterial Blood Glucose Arterial Blood Ionized Calcium Urine WBC (Auto) Coronavirus (PCR) SARS-CoV-2 IgG Ab Crossmatch 06/22/20 06/22/20 06/22/20 23:36 23:45 Unknown WBC 14.1 H RBC 2.70 L Hgb 8.9 L 8.9 L Hct 26.9 L 27.2 L D MCV 101 H MCH 33 H MCHC RDW 17.7 H Lymph % (Auto) Lymph # (Auto) Seg Neutrophils % Seg Neuts % (Manual) 92.0 H Lymphocytes % (Manual) 5.0 L Nucleated RBC % Seg Neutrophils # Seg Neutrophils # Man 13.0 H Lymphocytes # (Manual) 0.7 L Monocytes # (Manual) PT INR APTT D-Dimer ABG pH POC ABG pCO2 POC ABG pO2 ABG pO2 ABG HCO3 ABG O2 Saturation ABG Base Excess ABG Hemoglobin ABG Oxyhemoglobin ABG Sodium ABG Potassium ABG Chloride ABG Glucose Oxyhemoglobin Sodium Potassium Chloride Carbon Dioxide BUN Creatinine Glucose POC Glucose 208 H Lactic Acid Calcium Magnesium Ferritin Total Bilirubin Direct Bilirubin AST ALT Alkaline Phosphatase Lactate Dehydrogenase C-Reactive Protein Total Protein Albumin Triglycerides Arterial Blood Glucose Arterial Blood Ionized Calcium Urine WBC (Auto) Coronavirus (PCR) SARS-CoV-2 IgG Ab Crossmatch 06/23/20 06/23/20 06/23/20 05:17 05:19 06:50 WBC RBC Hgb Hct MCV MCH MCHC RDW Lymph % (Auto) Lymph # (Auto) Seg Neutrophils % Seg Neuts % (Manual) Lymphocytes % (Manual) Nucleated RBC % Seg Neutrophils # Seg Neutrophils # Man Lymphocytes # (Manual) Monocytes # (Manual) PT INR APTT D-Dimer ABG pH POC ABG pCO2 69.7 H POC ABG pO2 63.3 L ABG pO2 ABG HCO3 ABG O2 Saturation ABG Base Excess ABG Hemoglobin 10.1 L ABG Oxyhemoglobin ABG Sodium ABG Potassium 3.3 L ABG Chloride ABG Glucose 226 H Oxyhemoglobin Sodium Potassium 3.0 L Chloride Carbon Dioxide 41 H* BUN 26 H Creatinine 0.4 L Glucose 209 H POC Glucose 200 H Lactic Acid Calcium Magnesium Ferritin Total Bilirubin Direct Bilirubin AST ALT Alkaline Phosphatase Lactate Dehydrogenase C-Reactive Protein Total Protein Albumin 2.9 L Triglycerides Arterial Blood Glucose 226 H Arterial Blood Ionized Calcium Urine WBC (Auto) Coronavirus (PCR) SARS-CoV-2 IgG Ab Crossmatch 06/23/20 06/23/20 06/23/20 09:41 12:04 18:16 WBC RBC Hgb 9.1 L Hct 28.0 L MCV MCH MCHC RDW Lymph % (Auto) Lymph # (Auto) Seg Neutrophils % Seg Neuts % (Manual) Lymphocytes % (Manual) Nucleated RBC % Seg Neutrophils # Seg Neutrophils # Man Lymphocytes # (Manual) Monocytes # (Manual) PT INR APTT D-Dimer ABG pH POC ABG pCO2 POC ABG pO2 ABG pO2 ABG HCO3 ABG O2 Saturation ABG Base Excess ABG Hemoglobin ABG Oxyhemoglobin ABG Sodium ABG Potassium ABG Chloride ABG Glucose Oxyhemoglobin Sodium Potassium Chloride Carbon Dioxide BUN Creatinine Glucose POC Glucose 146 H 162 H Lactic Acid Calcium Magnesium Ferritin Total Bilirubin Direct Bilirubin AST ALT Alkaline Phosphatase Lactate Dehydrogenase C-Reactive Protein Total Protein Albumin Triglycerides Arterial Blood Glucose Arterial Blood Ionized Calcium Urine WBC (Auto) Coronavirus (PCR) SARS-CoV-2 IgG Ab Crossmatch 06/23/20 06/23/20 06/24/20 23:24 23:41 02:39 WBC RBC Hgb 8.2 L 8.8 L Hct 24.9 L 26.8 L MCV MCH MCHC RDW Lymph % (Auto) Lymph # (Auto) Seg Neutrophils % Seg Neuts % (Manual) Lymphocytes % (Manual) Nucleated RBC % Seg Neutrophils # Seg Neutrophils # Man Lymphocytes # (Manual) Monocytes # (Manual) PT INR APTT D-Dimer ABG pH POC ABG pCO2 POC ABG pO2 ABG pO2 ABG HCO3 ABG O2 Saturation ABG Base Excess ABG Hemoglobin ABG Oxyhemoglobin ABG Sodium ABG Potassium ABG Chloride ABG Glucose Oxyhemoglobin Sodium Potassium Chloride Carbon Dioxide BUN Creatinine Glucose POC Glucose 248 H Lactic Acid Calcium Magnesium Ferritin Total Bilirubin Direct Bilirubin AST ALT Alkaline Phosphatase Lactate Dehydrogenase C-Reactive Protein Total Protein Albumin Triglycerides Arterial Blood Glucose Arterial Blood Ionized Calcium Urine WBC (Auto) Coronavirus (PCR) SARS-CoV-2 IgG Ab Crossmatch 06/24/20 06/24/20 06/24/20 02:39 02:45 05:31 WBC RBC Hgb Hct MCV MCH MCHC RDW Lymph % (Auto) Lymph # (Auto) Seg Neutrophils % Seg Neuts % (Manual) Lymphocytes % (Manual) Nucleated RBC % Seg Neutrophils # Seg Neutrophils # Man Lymphocytes # (Manual) Monocytes # (Manual) PT INR APTT D-Dimer ABG pH POC ABG pCO2 66.9 H POC ABG pO2 109.7 H ABG pO2 ABG HCO3 ABG O2 Saturation ABG Base Excess ABG Hemoglobin 9.7 L ABG Oxyhemoglobin ABG Sodium 135.0 L ABG Potassium ABG Chloride 97.0 L ABG Glucose 277 H Oxyhemoglobin Sodium 136 L Potassium Chloride 95.0 L Carbon Dioxide 34 H D BUN 24 H Creatinine 0.3 L Glucose 260 H POC Glucose 164 H Lactic Acid Calcium Magnesium Ferritin Total Bilirubin Direct Bilirubin AST ALT Alkaline Phosphatase Lactate Dehydrogenase C-Reactive Protein Total Protein 5.2 L Albumin 2.6 L Triglycerides Arterial Blood Glucose 277 H Arterial Blood Ionized Calcium Urine WBC (Auto) Coronavirus (PCR) SARS-CoV-2 IgG Ab Crossmatch 06/24/20 06/24/20 06/24/20 10:00 11:49 17:39 WBC RBC Hgb 8.9 L Hct 26.5 L MCV MCH MCHC RDW Lymph % (Auto) Lymph # (Auto) Seg Neutrophils % Seg Neuts % (Manual) Lymphocytes % (Manual) Nucleated RBC % Seg Neutrophils # Seg Neutrophils # Man Lymphocytes # (Manual) Monocytes # (Manual) PT INR APTT D-Dimer ABG pH POC ABG pCO2 POC ABG pO2 ABG pO2 ABG HCO3 ABG O2 Saturation ABG Base Excess ABG Hemoglobin ABG Oxyhemoglobin ABG Sodium ABG Potassium ABG Chloride ABG Glucose Oxyhemoglobin Sodium Potassium Chloride Carbon Dioxide BUN Creatinine Glucose POC Glucose 198 H 223 H Lactic Acid Calcium Magnesium Ferritin Total Bilirubin Direct Bilirubin AST ALT Alkaline Phosphatase Lactate Dehydrogenase C-Reactive Protein Total Protein Albumin Triglycerides Arterial Blood Glucose Arterial Blood Ionized Calcium Urine WBC (Auto) Coronavirus (PCR) SARS-CoV-2 IgG Ab Crossmatch 06/24/20 06/25/20 06/25/20 23:56 02:16 04:08 WBC RBC Hgb Hct MCV MCH MCHC RDW Lymph % (Auto) Lymph # (Auto) Seg Neutrophils % Seg Neuts % (Manual) Lymphocytes % (Manual) Nucleated RBC % Seg Neutrophils # Seg Neutrophils # Man Lymphocytes # (Manual) Monocytes # (Manual) PT INR APTT D-Dimer ABG pH 7.454 H POC ABG pCO2 56.9 H POC ABG pO2 61.0 L ABG pO2 ABG HCO3 ABG O2 Saturation ABG Base Excess ABG Hemoglobin ABG Oxyhemoglobin ABG Sodium 134.3 L ABG Potassium ABG Chloride 92.0 L ABG Glucose 246 H Oxyhemoglobin Sodium 134 L Potassium Chloride 89.7 L Carbon Dioxide 36 H BUN Creatinine 0.3 L Glucose 254 H POC Glucose 225 H Lactic Acid Calcium Magnesium Ferritin Total Bilirubin Direct Bilirubin AST ALT Alkaline Phosphatase Lactate Dehydrogenase C-Reactive Protein Total Protein Albumin 2.9 L Triglycerides Arterial Blood Glucose 246 H Arterial Blood Ionized Calcium Urine WBC (Auto) Coronavirus (PCR) SARS-CoV-2 IgG Ab Crossmatch 06/25/20 06/25/20 05:44 11:35 WBC RBC Hgb Hct MCV MCH MCHC RDW Lymph % (Auto) Lymph # (Auto) Seg Neutrophils % Seg Neuts % (Manual) Lymphocytes % (Manual) Nucleated RBC % Seg Neutrophils # Seg Neutrophils # Man Lymphocytes # (Manual) Monocytes # (Manual) PT INR APTT D-Dimer ABG pH POC ABG pCO2 POC ABG pO2 ABG pO2 ABG HCO3 ABG O2 Saturation ABG Base Excess ABG Hemoglobin ABG Oxyhemoglobin ABG Sodium ABG Potassium ABG Chloride ABG Glucose Oxyhemoglobin Sodium Potassium Chloride Carbon Dioxide BUN Creatinine Glucose POC Glucose 170 H 175 H Lactic Acid Calcium Magnesium Ferritin Total Bilirubin Direct Bilirubin AST ALT Alkaline Phosphatase Lactate Dehydrogenase C-Reactive Protein Total Protein Albumin Triglycerides Arterial Blood Glucose Arterial Blood Ionized Calcium Urine WBC (Auto) Coronavirus (PCR) SARS-CoV-2 IgG Ab Crossmatch Allied health notes reviewed: nursing
--- NOTE | 2020-06-25 14:41 | Progress Note ---
Assessment and Plan Assessment and plan: - Acute hypoxemic respiratory failure; Patient intubated and on vent support --Severe COVID-19 bilateral pneumonia Coronavirus protocol: IV steroid therapy, completed remdesivir, isolation precautions, contact precautions, prone positioning while in bed, pulmonary toilet. ID following SARS CoV-2 IgG positive patient is NOT a candidate for COVID convalescent plasma --Severe sepsis/septic shock, due to COVID 19 PNA cont pressors as needed -- Acute kidney injury (SEN) , likely vasomotor nephropathy Resolved, IV fluids, avoid nephrotoxins --Acute on chronic anemia Guaiac test positive GI evaluation PPIs Continue to monitor -- Elevated liver function tests Suspected secondary to alcoholic liver disease. Supportive care, alcohol cessation, patient counseled. --Colonic distention GI evaluation -recommend stool softeners Serial abdominal x-rays Monitor electrolytes and replete -- DVT prophylaxis On therapeutic Lovenox 06/16/2020. Patient currently on mechanical ventilation with AC mode rate 30, tidal volume 500, FiO2 70% and PEEP of 16. Continue anticoagulation with Lovenox 110 milligrams subcu every 12 hours. Wean sedation of fentanyl/Versed as needed. Currently with IV steroids of Solu-Medrol 40 mg IV every 12 hours. Patient will likely need tracheostomy per pulmonary recommendations. Continue pressors to maintain MAP > 65. 06/17/2020. Patient currently on mechanical ventilation with AC mode rate 30, tidal volume 500, FiO2 65% and PEEP of 16. Continue anticoagulation with Lovenox 110 milligrams subcu every 12 hours. Wean sedation of fentanyl/Versed as needed. Currently with IV steroids of Solu-Medrol 40 mg IV every 12 hours. Patient will likely need tracheostomy per pulmonary recommendations. 06/18/2020. Patient currently on mechanical ventilation with AC mode rate 30, tidal volume 500, FiO2 70% and PEEP of 16. Continue Lovenox for anticoagulation and fentanyl/Versed for sedation. Wean steroids per pulmonary. CIWA protocol initiated for history of EtOH dependence 06/19/2020. Patient currently on mechanical ventilation with AC mode rate 30, tidal volume 500, FiO2 60% and PEEP of 16. Wean FiO2 as tolerated per protocol. Continue Lovenox for anticoagulation and fentanyl/Versed for sedation. Wean steroids per pulmonary. CIWA protocol initiated for history of EtOH dependence 06/20/2020. Patient currently on mechanical ventilation with AC mode rate 30, tidal volume 500, FiO2 60% and PEEP of 16. Wean FiO2 as tolerated, SBT per protocol. Continue Lovenox for anticoagulation and fentanyl/Versed for sedation. Wean steroids per pulmonary. Continue pressors to maintain MAP > 65 mmHg. Patient remains on ETT. Consider tracheostomy placement once oxygenation is better per pulmonary. CIWA protocol initiated for history of EtOH dependence. 06/21/2020. Patient with a small apical pneumothorax discovered yesterday. General surgery consulted and consider placing chest tube. Follow-up serial chest x-ray patient currently on mechanical ventilation with AC mode rate 30, t idal volume 500, FiO2 60% and PEEP of 16. Wean FiO2 as tolerated, SBT per protocol. Continue Lovenox for anticoagulation and fentanyl/Versed for sedation. Wean steroids per pulmonary. Continue pressors to maintain MAP > 65 mmHg. Patient remains on ETT. Consider tracheostomy placement once oxygenation is better per pulmonary. CIWA protocol initiated for history of EtOH dependence. 06/22. Status post right chest tube placement yesterday. Remains mechanically ventilated on pressors. Examination today shows slightly distended abdomen. KUB ordered. Awaiting stool guaiac. Plan to get a GI evaluation. 06/23. Has colonic distention on the x-ray. Discussed with GI-advised stool softeners for now and close monitoring. No indication for colonic decompression at this time. Guaiac test is positive. No emergent indication for endoscopy at this point as per GI. Continue to monitor hemoglobin. 06/24. Remains intubated. On pressors. GI following for positive guaiac stool and anemia, and colonic distention. 06/25. Repeat abdominal xray ordered. Remains on mechanical ventilation. The high probability of a clinically significant, sudden or life threatening deterioration of the [respiratory] system(s) required my full and direct attention, intervention and personal management. The aggregate critical care time was [31] minutes. This time is in addition to time spent performing reported procedures but includes the following: [x] Data Review and interpretation [x] Patient assessment and monitoring of vital signs [x] Documentation [x] Medication orders and management History Interval history: Sedated and intubated Hospitalist Physical - Physical exam Narrative exam: VITAL SIGNS: Reviewed. GENERAL: Sedated and intubated HEAD: No signs of head trauma. MOUTH: Oropharynx is normal. NECK: No adenopathy, no JVD. CHEST: Chest with diminished breath sounds bilaterally. No wheezes, rales, or rhonchi. CARDIAC: normal S1 and S2, without murmurs, gallops, or rubs. ABDOMEN: Slightly distended, bowel sounds hypoactive NEUROLOGIC EXAM: Sedated and intubated - Constitutional Vitals: Temp Pulse Resp BP Pulse Ox 98.8 F 91 H 30 H 116/67 95 06/25/20 12:00 06/25/20 12:15 06/25/20 12:15 06/25/20 12:15 06/25/20 12:15 Results - Labs CBC & Chem 7: 06/24/20 10:00 06/25/20 02:16 Labs: Laboratory Last Values WBC 14.1 K/mm3 (4.5-11.0) H 06/22/20 Unknown RBC 2.70 M/mm3 (3.65-5.03) L 06/22/20 Unknown Hgb 8.9 gm/dl (11.8-15.2) L 06/24/20 10:00 Hct 26.5 % (35.5-45.6) L 06/24/20 10:00 MCV 101 fl (84-94) H 06/22/20 Unknown MCH 33 pg (28-32) H 06/22/20 Unknown MCHC 33 % (32-34) 06/22/20 Unknown RDW 17.7 % (13.2-15.2) H 06/22/20 Unknown Plt Count 262 K/mm3 (140-440) 06/24/20 02:39 Lymph % (Auto) 4.4 % (13.4-35.0) L 06/16/20 04:00 Polk % (Auto) 3.6 % (0.0-7.3) 06/16/20 04:00 Eos % (Auto) 0.0 % (0.0-4.3) 06/16/20 04:00 Baso % (Auto) 0.3 % (0.0-1.8) 06/16/20 04:00 Lymph # (Auto) 0.6 K/mm3 (1.2-5.4) L 06/16/20 04:00 Polk # (Auto) 0.5 K/mm3 (0.0-0.8) 06/16/20 04:00 Eos # (Auto) 0.0 K/mm3 (0.0-0.4) 06/16/20 04:00 Baso # (Auto) 0.0 K/mm3 (0.0-0.1) 06/16/20 04:00 Add Manual Diff Complete 06/22/20 Unknown Total Counted 100 06/22/20 Unknown Seg Neutrophils % [employer] 06/16/20 04:00 Seg Neuts % (Manual) 92.0 % (40.0-70.0) H 06/22/20 Unknown Band Neutrophils % 0 % 06/15/20 Unknown Lymphocytes % (Manual) 5.0 % (13.4-35.0) L 06/22/20 Unknown Reactive Lymphs % (Man) 0 % 06/15/20 Unknown Monocytes % (Manual) 3.0 % (0.0-7.3) 06/22/20 Unknown Eosinophils % (Manual) 0 % (0.0-4.3) 06/15/20 Unknown Basophils % (Manual) 0 % (0.0-1.8) 06/15/20 Unknown Metamyelocytes % 3.0 % 06/15/20 Unknown Myelocytes % 0 % 06/15/20 Unknown Promyelocytes % 0 % 06/15/20 Unknown Blast Cells % 0 % 06/15/20 Unknown Nucleated RBC % Not Reportable 06/22/20 Unknown Seg Neutrophils # 12.7 K/mm3 (1.8-7.7) H 06/16/20 04:00 Seg Neutrophils # Man 13.0 K/mm3 (1.8-7.7) H 06/22/20 Unknown Band Neutrophils # 0.0 K/mm3 06/22/20 Unknown Lymphocytes # (Manual) 0.7 K/mm3 (1.2-5.4) L 06/22/20 Unknown Abs React Lymphs (Man) 0.0 K/mm3 06/22/20 Unknown Monocytes # (Manual) 0.4 K/mm3 (0.0-0.8) 06/22/20 Unknown Eosinophils # (Manual) 0.0 K/mm3 (0.0-0.4) 06/22/20 Unknown Basophils # (Manual) 0.0 K/mm3 (0.0-0.1) 06/22/20 Unknown Metamyelocytes # 0.0 K/mm3 06/22/20 Unknown Myelocytes # 0.0 K/mm3 06/22/20 Unknown Promyelocytes # 0.0 K/mm3 06/22/20 Unknown Blast Cells # 0.0 K/mm3 06/22/20 Unknown WBC Morphology Not Reportable 06/22/20 Unknown Hypersegmented Neuts Not Reportable 06/22/20 Unknown Hyposegmented Neuts Not Reportable 06/22/20 Unknown Hypogranular Neuts Not Reportable 06/22/20 Unknown Smudge Cells Not Reportable 06/22/20 Unknown Toxic Granulation Not Reportable 06/22/20 Unknown Toxic Vacuolation Not Reportable 06/22/20 Unknown Dohle Bodies Not Reportable 06/22/20 Unknown Pelger-Huet Anomaly Not Reportable 06/22/20 Unknown Jason Rods Not Reportable 06/22/20 Unknown Platelet Estimate Consistent w auto 06/22/20 Unknown Clumped Platelets Not Reportable 06/22/20 Unknown Plt Clumps, EDTA Not Reportable 06/22/20 Unknown Large Platelets Not Reportable 06/22/20 Unknown Giant Platelets Not Reportable 06/22/20 Unknown Platelet Satelliting Not Reportable 06/22/20 Unknown Plt Morphology Comment Not Reportable 06/22/20 Unknown RBC Morphology Not Reportable 06/22/20 Unknown Dimorphic RBCs Not Reportable 06/22/20 Unknown Polychromasia Few 06/22/20 Unknown Hypochromasia Not Reportable 06/22/20 Unknown Poikilocytosis Not Reportable 06/22/20 Unknown Anisocytosis Few 06/22/20 Unknown Microcytosis Not Reportable 06/22/20 Unknown Macrocytosis Few 06/22/20 Unknown Spherocytes Not Reportable 06/22/20 Unknown Pappenheimer Bodies Not Reportable 06/22/20 Unknown Sickle Cells Not Reportable 06/22/20 Unknown Target Cells Not Reportable 06/22/20 Unknown Tear Drop Cells Not Reportable 06/22/20 Unknown Ovalocytes Not Reportable 06/22/20 Unknown Stomatocytes Few 06/14/20 07:15 Helmet Cells Not Reportable 06/22/20 Unknown Sinclair-Parrish Bodies Not Reportable 06/22/20 Unknown [place] Rings Not Reportable 06/22/20 Unknown Freedom Cells Not Reportable 06/22/20 Unknown Bite Cells Not Reportable 06/22/20 Unknown Crenated Cell Not Reportable 06/22/20 Unknown Elliptocytes Not Reportable 06/22/20 Unknown Acanthocytes (Spur) Not Reportable 06/22/20 Unknown Rouleaux Not Reportable 06/22/20 Unknown Hemoglobin C Crystals Not Reportable 06/22/20 Unknown Schistocytes Not Reportable 06/22/20 Unknown Malaria parasites Not Reportable 06/22/20 Unknown Josue Bodies Not Reportable 06/22/20 Unknown Hem Pathologist Commnt No 06/22/20 Unknown PT 11.8 Sec. (12.2-14.9) L 06/22/20 14:29 INR 0.88 (0.87-1.13) 06/22/20 14:29 APTT 23.5 Sec. (24.2-36.6) L 06/22/20 14:29 D-Dimer 1887.82 ng/mlDDU (0-234) H 05/20/20 08:16 Heparin Anti-Xa Level 0.45 U.I./ml (0.3-0.7) 06/25/20 02:16 ABG pH 7.454 (7.320-7.450) H 06/25/20 04:08 POC ABG pCO2 56.9 mmHg (32.0-48.0) H 06/25/20 04:08 ABG pCO2 69.8 mm Hg 06/22/20 03:50 POC ABG pO2 61.0 mmHg (83-108) L 06/25/20 04:08 ABG pO2 89.6 mm Hg (80.0-90.0) 06/22/20 03:50 POC ABG HCO3 39 06/25/20 04:08 ABG HCO3 47.5 mmol/L (20.0-26.0) H 06/22/20 03:50 ABG O2 Saturation 97.1 % (95.0-99.0) 06/22/20 03:50 ABG O2 Content 6.0 (0.0-44) 06/22/20 03:50 POC ABG Base Excess 12.9 06/25/20 04:08 ABG Base Excess 22.0 mmol/L (-2.0-3.0) H 06/22/20 03:50 ABG Hemoglobin 12.3 (12.0-17.5) 06/25/20 04:08 ABG Oxyhemoglobin 96.6 (94-98) 06/24/20 02:45 ABG Carboxyhemoglobin 2.6 % (0.0-5.0) 06/22/20 03:50 ABG Methemoglobin 0.3 (0.0-1.5) 06/24/20 02:45 ABG Sodium 134.3 mmol/L (136.0-145.0) L 06/25/20 04:08 ABG Potassium 3.4 mmol/L (3.40-4.50) 06/25/20 04:08 ABG Chloride 92.0 mmol/L (98-107) L 06/25/20 04:08 ABG Glucose 246 mg/dL (65-95) H 06/25/20 04:08 Oxyhemoglobin 94.1 % (95.0-99.0) L 06/22/20 03:50 Carboxyhemoglobin 1.1 (0.5-1.5) 06/24/20 02:45 FiO2 50 06/25/20 04:08 Sodium 134 mmol/L (137-145) L 06/25/20 02:16 Potassium 3.6 mmol/L (3.6-5.0) 06/25/20 02:16 Chloride 89.7 mmol/L (98-107) L 06/25/20 02:16 Carbon Dioxide 36 mmol/L (22-30) H 06/25/20 02:16 Anion Gap 12 mmol/L 06/25/20 02:16 BUN 16 mg/dL (9-20) 06/25/20 02:16 Creatinine 0.3 mg/dL (0.8-1.3) L 06/25/20 02:16 Estimated GFR > 60 ml/min 06/25/20 02:16 BUN/Creatinine Ratio 53 % 06/25/20 02:16 Glucose 254 mg/dL (75-100) H 06/25/20 02:16 POC Glucose 175 mg/dL (70-105) H 06/25/20 11:35 Lactic Acid 1.80 mmol/L (0.7-2.0) 05/09/20 Unknown Calcium 9.0 mg/dL (8.4-10.2) 06/25/20 02:16 Phosphorus 3.10 mg/dL (2.5-4.5) 06/15/20 04:00 Magnesium 1.90 mg/dL (1.7-2.3) 06/15/20 04:00 Ferritin 1496.0 ng/mL (30.0-300.0) H 06/14/20 11:50 Total Bilirubin 0.70 mg/dL (0.1-1.2) 06/25/20 02:16 Direct Bilirubin 0.6 mg/dL (0-0.2) H 05/11/20 07:30 Indirect Bilirubin 0.9 mg/dL 05/11/20 07:30 AST 27 units/L (5-40) 06/25/20 02:16 ALT 27 units/L (7-56) 06/25/20 02:16 Alkaline Phosphatase 82 units/L (35-129) 06/25/20 02:16 Lactate Dehydrogenase 705 units/L (91-180) H 05/20/20 08:16 C-Reactive Protein 3.10 mg/dL (0.00-1.30) H 05/20/20 08:16 Total Protein 6.4 g/dL (6.3-8.2) D 06/25/20 02:16 Albumin 2.9 g/dL (3.9-5) L 06/25/20 02:16 Albumin/Globulin Ratio 0.8 % 06/25/20 02:16 Triglycerides 152 mg/dL (2-149) H 06/15/20 05:00 Procalcitonin 0.94 ng/mL (<0.15) 06/14/20 11:50 Arterial Blood Glucose 246 mg/dL (65-95) H 06/25/20 04:08 Arterial Blood Ionized Calcium 4.6 mg/dL (4.6-5.3) 06/25/20 04:08 Urine Color Fauzia (Yellow) 05/10/20 Unknown Urine Turbidity Clear (Clear) 05/10/20 Unknown Urine pH 5.0 (5.0-7.0) 05/10/20 Unknown Ur Specific Ralston 1.019 (1.003-1.030) 05/10/20 Unknown Urine Protein 100 mg/dl mg/dL (Negative) 05/10/20 Unknown Urine Glucose (UA) Neg mg/dL (Negative) 05/10/20 Unknown Urine Ketones Neg mg/dL (Negative) 05/10/20 Unknown Urine Blood Lg (Negative) 05/10/20 Unknown Urine Nitrite Neg (Negative) 05/10/20 Unknown Urine Bilirubin Neg (Negative) 05/10/20 Unknown Urine Urobilinogen 2.0 mg/dL (<2.0) 05/10/20 Unknown Ur Leukocyte Esterase Neg (Negative) 05/10/20 Unknown Urine WBC (Auto) 11.0 /HPF (0.0-6.0) H 05/10/20 Unknown Urine RBC (Auto) 2.0 /HPF (0.0-6.0) 05/10/20 Unknown U Epithel Cells (Auto) 1.0 /HPF (0-13.0) 05/10/20 Unknown Urine Bacteria (Auto) 1+ /HPF (Negative) 05/10/20 Unknown Urine Mucus Few /HPF 05/10/20 Unknown Plasma/Serum Alcohol < 0.01 % (0-0.07) 05/09/20 14:20 Coronavirus (PCR) Positive (Negative) A 05/10/20 Unknown SARS-CoV-2 IgG Ab Reactive (NonReactive) A 05/11/20 07:30 Blood Type B POSITIVE 06/21/20 14:18 Antibody Screen Negative 06/21/20 14:18 Crossmatch See Detail 06/21/20 14:18 - Diagnostic Impressions Diagnostic Impressions: Echocardiogram 05/20/20 13:02 Transthoracic Echocardiogram Indication: CHF BP: 97/73 Conclusions *The study quality is technically very difficult and limited. *The left ventricular chamber size, wall thickness and systolic function are within normal limits. There are no wall motion abnormalities observed. Ejection fraction is normal. *The estimated ejection fraction is 60-65%. *The pericardium appears normal. Findings Procedure Info: The study quality is technically difficult. Left Ventricle: The left ventricular chamber size, wall thickness and systolic function are within normal limits. There are no wall motion abnormalities observed. Ejection fraction is normal. The estimated ejection fraction is 60-65%. Abnormal left ventricular diastolic filling is observed, consistent with impaired relaxation. Left Atrium: The left atrium is normal in size with no visual thrombus identified. Right Ventricle: The right ventricle is not well visualized. Right Atrium: The right atrium is not well visualized. Aortic Valve: The aortic valve is trileaflet. The leaflets are thin with normal excursion. There is no aortic stenosis or regurgitation present. Mitral Valve: The mitral valve appears normal in structure and function. Tricuspid Valve: The tricuspid valve appears normal in structure and function. Unable to estimate the right ventricular systolic pressure. Pulmonic Valve: The pulmonic valve is not well visualized. There is no evidence of pulmonic regurgitation. There is no pulmonic stenosis. Pericardium: The pericardium appears normal. Pulmonary Artery: The main pulmonary artery is not well visualized. Venous: The inferior vena cava appears normal in size. Measurements Chambers 2D Name Value Normal Range IVSd (2D) 0.83 cm (0.6 - 1.1) LVPWd (2D) 0.83 cm (0.6 - 1.1) LVIDd (2D) 3.88 cm (3.7 - 5.6) LVIDs (2D) 2.46 cm (2 - 3.8) LV FS (2D) 36.52 % - EF Teichholz (2D) 66.97 % - Ao root diameter (2D) 3.47 cm (2 - 3.7) Volumes/Mass Name Value Normal Range LA ESV SP 4CH (A/L) 22.4 ml - LA ESV SP 2CH (A/L) 22.89 ml - LA ESV BP (A/L) 23.06 ml - LA ESV SP 4CH (MOD) 21.09 ml - LA ESV SP 2CH (MOD) 22.44 ml - Diastolic/Systolic Function Name Value Normal Range MV E-wave Vmax 0.48 m/sec - MV deceleration time 156.3 msec - MV A-wave Vmax 0.59 m/sec - MV E:A ratio 0.81 ratio - Aortic Valve Name Value Normal Range AV Vmax 0.97 m/sec - AV VTI 14.49 cm - AV peak gradient 3.73 mmHg - AV mean gradient 1.89 mmHg - LVOT diameter 2.09 cm - LVOT Vmax 0.72 m/sec - LVOT VTI 10.21 cm - LVOT peak gradient 2.05 mmHg - LVOT mean gradient 1.03 mmHg - SV LVOT 35.17 ml - INNA (continuity Vmax) 2.55 cm2 - INNA (continuity VTI) 2.43 cm2 - Tricuspid Valve Name Value Normal Range TV E-wave Vmax 0.37 m/sec - Pulmonic Valve/Qp:Qs Name Value Normal Range PV Vmax 0.72 m/sec - PV peak gradient 2.06 mmHg - RVOT Vmax 0.85 m/sec - RVOT VTI 9.89 cm - RVOT peak gradient 2.9 mmHg - PV acceleration time 72.31 msec - Cantor/IV: Voiding Method Condom Catheter IV Catheter Type [Right Upper PICC Line arm] IV Catheter Type [Right CVL Internal Jugular] IV Catheter Type [Right Peripheral IV Forearm] IV Catheter Type [Left Forearm Peripheral IV ] IV Catheter Type [Left Wrist] INT / Saline Lock IV Catheter Type [Right Hand] INT / Saline Lock IV Catheter Type [Left Hand] INT / Saline Lock IV Catheter Type [Left Peripheral IV Antecubital] Active Medications - Current Medications Current Medications: Generic Name Dose Route Start Last Admin Trade Name Freq PRN Reason Stop Dose Admin Acetaminophen 650 mg 06/14/20 10:07 06/21/20 20:21 Tylenol FEEDTUBE 650 mg Q4H PRN Administration Pain, Mild (1-3) Alprazolam 0.25 mg 05/20/20 17:53 06/25/20 04:11 Alprazolam 0.25 Mg Tab PO 0.25 mg Q8H PRN Administration Anxiety Lipase/Protease/Amylase 1 each 05/22/20 13:01 Lipase 10,500/Protease 25,000/Amylase 43,750 (Units) Dr Cap FEEDTUBE PRN PRN For Clogged Feeding Tube Docusate Sodium 100 mg 05/28/20 14:00 06/25/20 09:17 Colace PO 100 mg BID DESIRE Administration Fentanyl 50 mcg 06/22/20 09:48 Fentanyl 100 Mcg/2 Ml Inj IV Q10MIN PRN ANALGESIA Folic Acid 1 mg 05/09/20 15:36 06/25/20 09:14 Folvite PO 1 mg QDAY DESIRE Administration Heparin Sodium (Porcine) 4,300 unit 06/22/20 12:48 Heparin 10,000 Units/10 Ml Vial 40 unit/kg (4300 unit) IV Q6H PRN Anti-Xa Assay < 0.1 units/ml Hydrophilic Ointment 1 applic 05/21/20 20:33 Lip Therapy Vaseline TP Q2HR PRN Dry Lips Midazolam HCl 100 mg/ Sodium 100 mls @ 2 mls/hr 06/02/20 14:00 06/25/20 05:06 Chloride IV 5 mg/hr TITR DESIRE 5 mls/hr Administration Protocol 2 MG/HR Norepinephrine 4 mg in 250 mls @ 7.5 mls/hr 06/04/20 16:00 06/25/20 10:40 Levophed Drip 4 Mg/Ns 250 Ml IV 6 mcg/min TITR DESIRE 22.5 mls/hr Titration Protocol 2 MCG/MIN Fentanyl Citrate 2,000 mcg in 100 mls @ 5.32 mls/hr 06/09/20 14:00 06/25/20 10:40 Fentanyl Drip Premix IV 4 mcg/kg/hr TITR DESIRE 21.28 mls/hr Administration Protocol 1 MCG/KG/HR Vasopressin 20 unit/ Sodium 101 mls @ 9.09 mls/hr 06/09/20 18:00 Chloride IV TITR DESIRE Protocol 0.03 UNITS/MIN Heparin Sodium/Sodium Chloride 25,000 unit in 500 mls @ 30 mls/hr 06/22/20 13:00 06/25/20 10:41 Heparin/ 0.45% Nacl-25,000 Unit/500 Ml IV 1,500 units/hr TITR DESIRE 30 mls/hr Administration Protocol 1,500 UNITS/HR Propofol 1,000 mg in 100 mls @ 3.24 mls/hr 06/24/20 22:00 06/25/20 10:38 Diprivan 10 Mg/Ml IV 30 mcg/kg/min TITR DESIRE 19.44 mls/hr Titration Protocol 5 MCG/KG/MIN Insulin Glargine 20 units 06/18/20 22:00 06/24/20 22:40 Insulin Glargine 100 Units/Ml SUB-Q 20 units QHS DESIRE Administration Insulin Human Lispro 0 unit 05/29/20 14:00 06/25/20 12:34 Humalog SUB-Q 3 unit Q6H [facility] Administration Protocol Methylprednisolone Sodium Succinate 40 mg 05/20/20 18:00 06/25/20 05:06 Methylprednisolone Sod Succinate 40 Mg/1 Ml Inj IV 40 mg Q12H DESIRE Administration Multi-Ingred Cream/Lotion/Oil/Oint 1 applic 05/21/20 20:33 Mineral Oil/Petrolatum, White Ophth Oint 3.5 Gm OU Q4HR PRN Dry Eye(s) Pantoprazole Sodium 40 mg 06/23/20 10:00 06/25/20 09:14 Pantoprazole 40 Mg Inj IV 40 mg QDAY DESIRE Administration Phenobarbital 20 mg 06/18/20 14:00 06/25/20 05:43 Phenobarbital 20 Mg/5 Ml Oral Liqd FEEDTUBE 20 mg Q8HR DESIRE Administration Polyethylene Glycol 17 gm 05/28/20 22:00 06/24/20 22:41 Miralax 3350 PO 17 gm QHS DESIRE Administration Quetiapine Fumarate 300 mg 06/10/20 22:00 06/25/20 09:16 Seroquel PO 300 mg BID DESIRE Administration Senna 17.2 mg 06/07/20 10:00 06/25/20 09:14 Senokot PO 17.2 mg BID DESIRE Administration Simethicone 160 mg 06/22/20 13:00 06/25/20 09:14 Simethicone 80 Mg Chew Tab PO 06/27/20 07:01 160 mg Q6H DESIRE Administration Simple Syrup 15 ml 05/22/20 13:01 Simple Syrup 15 Ml FEEDTUBE PRN PRN Hypoglycemia Simple Syrup 30 ml 05/22/20 13:01 Simple Syrup 15 Ml FEEDTUBE PRN PRN Hypoglycemia Sodium Bicarbonate 325 mg 05/22/20 13:01 Sodium Bicarbonate 325 Mg Tab FEEDTUBE PRN PRN For Clogged Feeding Tube Sodium Chloride 10 ml 05/09/20 22:00 06/25/20 09:17 Sodium Chloride Flush Syringe 10 Ml IV 10 ml BID DESIRE Administration Nutrition/Malnutrition Assess - Dietary Evaluation Nutrition/Malnutrition Findings: Nutrition Notes Start: 05/17/20 14:10 Freq: Status: Active Protocol: Document 06/25/20 13:36 AB (Rec: 06/25/20 13:42 AB [id number]) Co-Sign 06/25/20 13:36 LP Nutrition Notes Initial or Follow up Reassessment Current Diagnosis Sepsis,Respiratory Failure Other Pertinent Diagnosis Bilat pneu, COVID-19 (+), EtOH dependence Current Diet Vital HP at 65 ml/hr (goal rate) Labs/Tests Na 134 Cr 0.3 POC BG 170 Pertinent Medications Reviewed Height 6 ft Weight 108 kg [place] Body Weight (kg) 80.90 BMI 32.3 Weight Status Obese Subjective/Other Information F/U for TF tolerance. Per RN, pt is tolerating TF at goal. Per RN, the MD came by and said that there is no ileus. Percent of energy/protein needs met: 85%/84% Burn Absent Trauma Absent GI Symptoms None Current % PO Negligible Minimum of two criteria No physical signs of malnutrition #1 Nutrition Diagnosis Inadequate oral intake Diagnosis Progress(for reassessment Continues documentation) Is patient on ventilator? Yes Is Patient Ambulatory and/or Out of Bed No REE-([facility]-confined to bed) 2371.200 Kcal/Kg value to use for calculation 17 Approximate Energy Requirements Using 1836 kcal/Kg Calculation Used for Recommendations Kcal/kg Additional Notes Pro needs >2g/kg IBW: at least 162g/day Fluid needs 1ml/kcal Nutrition Intervention Change Diet Order: Continue TF Nutrition Support: Vital HP at 65ml/hr with 50ml water flush q4h. Kcal 1,560 Protein (gm) 136 Fluid (mL) 1,304 Goal #1 TF tolerance Goal #2 TF (at goal rate) to meet at least 75% energy and pro needs Anticipated Discharge Needs: Unable to identify at this time Follow-Up By: 06/30/20 Additional Comments F/U TF tolerance
--- NOTE | 2020-06-25 15:53 | XRay Report ---
ABDOMEN 1 VIEW(S) INDICATION / CLINICAL INFORMATION: Colonic distention. COMPARISON: 06/23/2020 FINDINGS: TUBES / LINES: Nasogastric tube remains in adequate position terminating in the mid stomach. BOWEL GAS PATTERN: No significant abnormality. Colonic distention has resolved. There is decreased fe trista matter in the proximal colon. FREE AIR / EXTRALUMINAL GAS: None seen. ADDITIONAL FINDINGS: No significant additional findings. IMPRESSION: No significant abnormality. Signer Name: Bautista Jennings Jr, MD Signed: 06/25/2020 3:49 PM Workstation Name: [id number]
[2020-06-25] MEDS: INSULIN GLARGINE 100 UNITS/ML SUB-Q SCH (21:51)
[2020-06-25] MEDS: POLYETHYLENE GLYCOL 3350 17 GM POWDER PO SCH (21:52)
[2020-06-26] MEDS: fentaNYL DRIP Premix 2,000 MCG/100 ML BAG IV SCH ×5 (01:19→21:01)
[2020-06-26] MEDS: SIMETHICONE 80 MG CHEW TAB PO SCH ×4 (01:36→18:14)
[2020-06-26 02:30] LABS: Hematocrit 30.4 % (35.5-45.6)
[2020-06-26 02:48] LABS: Alanine Aminotransferase 24 units/L (7-56); Albumin 2.9 g/dL (3.9-5); Blood Urea Nitrogen 15 mg/dL (9-20); Calcium 9.3 mg/dL (8.4-10.2); Hemolysis Index 43
[2020-06-26 02:55] LABS: BUN/Creatinine Ratio 75
[2020-06-26] MEDS: NORepinephrine/NS 4 MG-250 ML 4 MG/250 ML BAG IV SCH ×4 (03:12→23:45)
[2020-06-26] MEDS: HEPARIN/ 0.45% NACL DRIP 25,000 UNIT/500 ML BAG IV SCH ×2 (04:28→21:35)
[2020-06-26] MEDS: methylPREDNISolone Sod Succinate 40 MG/1 ML INJ IV SCH ×3 (06:36→18:14)
[2020-06-26] MEDS: PHENobarbital 20 MG/5 ML ORAL LIQD FEEDTUBE SCH ×3 (06:37→21:27)
[2020-06-26] MEDS: INSULIN LISPRO 100 UNIT/ML VIAL 3 mL SUB-Q SCH ×3 (06:38→18:44)
[2020-06-26] MEDS: SENNOSIDES 8.6 MG TAB PO SCH ×2 (09:46→21:28)
[2020-06-26] MEDS: DOCUSATE SODIUM 100 MG/10 ML ORAL LIQD PO SCH ×2 (09:46→21:27)
[2020-06-26] MEDS: PANTOPRAZOLE 40 MG INJ IV SCH (09:46)
[2020-06-26] MEDS: QUEtiapine 100 MG TAB PO SCH ×2 (09:47→21:28)
[2020-06-26] MEDS: FOLIC ACID 1 MG TAB PO SCH (09:48)
--- NOTE | 2020-06-26 09:54 | XRay Report ---
CHEST 1 VIEW 06/26/2020 8:40 AM INDICATION / CLINICAL INFORMATION: Intubated and chest tube insitu. COMPARISON: 06/24/2020 FINDINGS: SUPPORT DEVICES: Unchanged. HEART / MEDIASTINUM: Unchanged LUNGS / PLEURA: Pulmonary opacities persist. No pneumothorax. ADDITIONAL FINDINGS: No significant additional findings. IMPRESSION: 1. No significant change. Signer Name: Thieron Joe MD Signed: 06/26/2020 9:49 AM Workstation Name: [id number]
--- NOTE | 2020-06-26 12:26 | Progress Note ---
Assessment and Plan Acute hypoxemic respiratory failure due to COVID-19 Severe COVID infection Severe Sepsis Bilateral pneumonia Acute kidney injury (SEN) with acute tubular necrosis (ATN)-improving h/o Alcohol dependence Elevated liver function tests probably secondary COVID Continue with chest tube to suction, Bowel regimen Continue to wean supplemental oxygen for O2 sats>90% Continue lung protective strategies Wean vasopressor support as tolerated to keep MAP>65 Monitor Triglycerides while on Propofol. CXR, ABG as indicated - VAP bundle addressed, aspiration precautions HOB >40 - Continue lung protective strategies, permissive hypercapnic acceptable. - continue bronchodilators with pulmonary hygiene per RT - wean per pulmonary driven protocols otherwise - accuchecks with glycemic control per SSI (While critically ill target blood glucose of 140-180 mg/dL; avoid hypoglycemia) - continue enteral nutritional support at goal rate as tolerated - Prone positioning as tolerated and indicated - Monitor liver function test , avoid hepatotoxic agents - Avoid nephrotoxins, renally dose all medications, conservative fluid manageme nt - continue to avoid benzodiazepines, reduce the possibility of delirium - prn analgesia per CPOT score - Maintenance of sleep-wake cycle, avoid delirium - continue to avoid benzodiazepines, reduce the possibility of delirium - aspiration precautions -Stress ulcer prophylaxis - PT/OT/ROM exercises - continue mobility protocols for pressure ulcer prevention -CXR, ABG as clinically indicated -CBC, BMP as clinically indicated -Supportive transfusions to keep HgB >7g/dL - Monitor hemodynamics closely - continue other care per attending / other consultants COVID SPECIFIC INTERVENTIONS - SARS CoV-2 IgG positive patient is NOT a candidate for COVID convalescent plasma -Completed remdesivir -Steroids -Monitor inflammatory markers per facility protocol- ferritin, Ddimer, CRP, LDH -Continue anticoagulation per System Protocol based on d-dimer -Continue contact and airborne isolation .... Re-evaluate in am & prn CONDITION: CRITICAL PROGNOSIS: GUARDED CODE STATUS: FULL CODE The high probability of a clinically significant, sudden or life-threatening deterioration of the [respiratory, cardiovascular, hematologic & neurologic] system(s) required my full and direct attention, intervention and personal management. The aggregate critical care time was [32] minutes without overlap. Time includes spent on; [x] Data Review and interpretation [x] Patient assessment and monitoring of vital signs [x] Documentation [x] Medication orders and management Subjective Date of service: 06/26/20 Principal diagnosis: Ac hypoxemic resp failure; COVID-19; Severe Sepsis; Shaggy PNA; Alcohol Abuse Interval history: Patient is seen today for: Acute hypoxemic respiratory failure due to COVID-19; Severe Sepsis; Bilateral pneumonia; Alcohol dependence; Elevated liver function tests Seen and examined at bedside; 24hour events reviewed; nursing and respiratory care staff consulted; no adverse overnight events reported to me; resting in bed; remains on MVS with stable ventilatory requirements, FiO2 at 50% PEEP +10 Remains on sedation- Midazolam , Propofol and Fentanyl. Norepinephrine down to 6mcg, Chest tube in good position, no leak Abdominal distension, no fevers, no vomiting Objective Vital Signs - 12hr 06/26/20 06/26/20 06/26/20 00:30 00:45 01:00 Temperature Pulse Rate 93 H 93 H 94 H Pulse Rate [ From Monitor] Respiratory 30 H 30 H 30 H Rate Blood Pressure 97/61 100/66 90/57 O2 Sat by Pulse 96 97 94 Oximetry 06/26/20 06/26/20 06/26/20 01:15 01:30 01:45 Temperature Pulse Rate 87 87 84 Pulse Rate [ From Monitor] Respiratory 30 H 30 H 30 H Rate Blood Pressure 105/68 99/65 102/66 O2 Sat by Pulse 96 96 98 Oximetry 06/26/20 06/26/20 06/26/20 02:00 02:15 02:30 Temperature Pulse Rate 83 82 95 H Pulse Rate [ From Monitor] Respiratory 30 H 30 H 30 H Rate Blood Pressure 106/64 106/64 107/67 O2 Sat by Pulse 96 100 100 Oximetry 06/26/20 06/26/20 06/26/20 02:45 03:00 03:15 Temperature Pulse Rate 86 91 H 93 H Pulse Rate [ From Monitor] Respiratory 30 H 30 H 30 H Rate Blood Pressure 109/73 118/70 111/58 O2 Sat by Pulse 100 99 99 Oximetry 06/26/20 06/26/20 06/26/20 03:30 03:33 03:45 Temperature 99.4 F Pulse Rate 92 H 91 H Pulse Rate [ From Monitor] Respiratory 30 H 30 H Rate Blood Pressure 116/65 111/64 O2 Sat by Pulse 97 98 Oximetry 06/26/20 06/26/20 06/26/20 04:00 04:15 04:20 Temperature Pulse Rate 90 87 86 Pulse Rate [ 90 From Monitor] Respiratory 30 H 30 H Rate Blood Pressure 109/66 132/76 132/76 O2 Sat by Pulse 100 100 100 Oximetry 06/26/20 06/26/20 06/26/20 04:30 04:45 05:01 Temperature Pulse Rate 86 91 H 92 H Pulse Rate [ From Monitor] Respiratory 30 H 30 H 30 H Rate Blood Pressure 122/68 105/63 110/60 O2 Sat by Pulse 100 100 98 Oximetry 06/26/20 06/26/20 06/26/20 05:15 05:30 05:45 Temperature Pulse Rate 90 90 87 Pulse Rate [ From Monitor] Respiratory 30 H 30 H 30 H Rate Blood Pressure 110/67 114/68 114/69 O2 Sat by Pulse 98 100 100 Oximetry 06/26/20 06/26/20 06/26/20 06:00 06:15 06:30 Temperature Pulse Rate 86 85 87 Pulse Rate [ From Monitor] Respiratory 30 H 30 H 30 H Rate Blood Pressure 122/70 112/63 97/54 O2 Sat by Pulse 99 100 99 Oximetry 06/26/20 06/26/20 06/26/20 06:45 07:00 07:15 Temperature Pulse Rate 86 83 84 Pulse Rate [ From Monitor] Respiratory 30 H 30 H 30 H Rate Blood Pressure 105/60 110/65 104/63 O2 Sat by Pulse 98 99 98 Oximetry 06/26/20 06/26/20 06/26/20 07:30 07:45 07:55 Temperature Pulse Rate 85 84 82 Pulse Rate [ From Monitor] Respiratory 30 H 30 H Rate Blood Pressure 104/59 107/64 108/71 O2 Sat by Pulse 98 99 100 Oximetry 06/26/20 06/26/20 06/26/20 08:00 08:15 08:31 Temperature 97.6 F Pulse Rate 92 H 85 90 Pulse Rate [ From Monitor] Respiratory 17 30 H 30 H Rate Blood Pressure 108/71 108/71 114/75 O2 Sat by Pulse 100 99 92 Oximetry 06/26/20 06/26/20 06/26/20 08:45 09:00 09:15 Temperature Pulse Rate 101 H 98 H 97 H Pulse Rate [ From Monitor] Respiratory 35 H 22 31 H Rate Blood Pressure 122/83 139/85 139/76 O2 Sat by Pulse 87 85 89 Oximetry 06/26/20 06/26/20 06/26/20 09:30 09:45 10:01 Temperature Pulse Rate 108 H 110 H 105 H Pulse Rate [ From Monitor] Respiratory 24 30 H 17 Rate Blood Pressure 139/80 133/77 112/62 O2 Sat by Pulse 95 95 100 Oximetry 06/26/20 06/26/20 06/26/20 10:15 10:30 10:45 Temperature Pulse Rate 107 H 107 H 106 H Pulse Rate [ From Monitor] Respiratory 20 20 17 Rate Blood Pressure 106/52 87/48 86/54 O2 Sat by Pulse 95 92 92 Oximetry 06/26/20 06/26/20 11:00 11:57 Temperature Pulse Rate 102 H 99 H Pulse Rate [ From Monitor] Respiratory 19 Rate Blood Pressure 80/56 129/79 O2 Sat by Pulse 93 96 Oximetry Constitutional: appears uncomfortable, other (middle aged obese male with mildly increased respiratory effort at rest on MVS) Eyes: non-icteric ENT: oropharynx moist, other (ETT 24 cm CHILO) Neck: supple, no JVD Effort: mildly labored Ascultation: Bilateral: diminished breath sounds, rhonchi (scant), other (right chest tube, no leak) Percussion: Bilateral: not dull Cardiovascular: regular rate and rhythm, other (No R/M) Gastrointestinal: normoactive bowel sounds, soft, non-tender, other (distended and firm) Integumentary: normal Extremities: no cyanosis, no edema, pulses normal, no ischemia or petechiae Neurologic: pupils equal and round, other (unable top assess re: AMS) Psychiatric: other (sedated) CBC and BMP: 07/05/20 05:18 07/05/20 05:18 ABG, PT/INR, D-dimer: ABG ABG pH 7.453 (7.320-7.450) H 06/26/20 04:15 POC ABG pCO2 59.6 mmHg (32.0-48.0) H 06/26/20 04:15 ABG pCO2 69.8 mm Hg 06/22/20 03:50 POC ABG pO2 90.9 mmHg (83-108) 06/26/20 04:15 ABG pO2 89.6 mm Hg (80.0-90.0) 06/22/20 03:50 POC ABG HCO3 40.8 06/26/20 04:15 ABG O2 Saturation 97.1 % (95.0-99.0) 06/22/20 03:50 PT/INR, D-dimer PT 11.8 Sec. (12.2-14.9) L 06/22/20 14:29 INR 0.88 (0.87-1.13) 06/22/20 14:29 D-Dimer 1887.82 ng/mlDDU (0-234) H 05/20/20 08:16 Abnormal lab findings: Abnormal Labs 05/09/20 05/09/20 05/09/20 12:59 12:59 12:59 WBC 11.8 H RBC Hgb Hct MCV 96 H MCH 34 H MCHC 35 H RDW Lymph % (Auto) 6.9 L Lymph # (Auto) 0.8 L Seg Neutrophils % 87.5 H Seg Neuts % (Manual) Lymphocytes % (Manual) Nucleated RBC % Seg Neutrophils # 10.3 H Seg Neutrophils # Man Lymphocytes # (Manual) Monocytes # (Manual) PT INR APTT D-Dimer ABG pH POC ABG pCO2 POC ABG pO2 ABG pO2 ABG HCO3 ABG O2 Saturation ABG Base Excess ABG Hemoglobin ABG Oxyhemoglobin ABG Sodium ABG Potassium ABG Chloride ABG Glucose Oxyhemoglobin Sodium 130 L Potassium 3.5 L Chloride 86.4 L Carbon Dioxide BUN 33 H Creatinine 2.3 H Glucose 156 H POC Glucose Lactic Acid Calcium Magnesium Ferritin Total Bilirubin 3.40 H Direct Bilirubin 1.7 H AST 385 H ALT 134 H Alkaline Phosphatase Lactate Dehydrogenase C-Reactive Protein Total Protein Albumin 3.0 L Triglycerides Arterial Blood Glucose Arterial Blood Ionized Calcium Urine WBC (Auto) Coronavirus (PCR) SARS-CoV-2 IgG Ab Crossmatch 05/09/20 05/09/20 05/09/20 12:59 12:59 12:59 WBC RBC Hgb Hct MCV MCH MCHC RDW Lymph % (Auto) Lymph # (Auto) Seg Neutrophils % Seg Neuts % (Manual) Lymphocytes % (Manual) Nucleated RBC % Seg Neutrophils # Seg Neutrophils # Man Lymphocytes # (Manual) Monocytes # (Manual) PT INR APTT D-Dimer 3242.51 H ABG pH POC ABG pCO2 POC ABG pO2 ABG pO2 ABG HCO3 ABG O2 Saturation ABG Base Excess ABG Hemoglobin ABG Oxyhemoglobin ABG Sodium ABG Potassium ABG Chloride ABG Glucose Oxyhemoglobin Sodium Potassium Chloride Carbon Dioxide BUN Creatinine Glucose 158 H POC Glucose Lactic Acid 3.50 H* Calcium Magnesium Ferritin Total Bilirubin Direct Bilirubin AST ALT Alkaline Phosphatase Lactate Dehydrogenase 2166 H C-Reactive Protein 39.00 H Total Protein Albumin Triglycerides Arterial Blood Glucose Arterial Blood Ionized Calcium Urine WBC (Auto) Coronavirus (PCR) SARS-CoV-2 IgG Ab Crossmatch 05/09/20 05/09/20 05/09/20 12:59 14:20 14:20 WBC RBC Hgb Hct MCV MCH MCHC RDW Lymph % (Auto) Lymph # (Auto) Seg Neutrophils % Seg Neuts % (Manual) Lymphocytes % (Manual) Nucleated RBC % Seg Neutrophils # Seg Neutrophils # Man Lymphocytes # (Manual) Monocytes # (Manual) PT INR APTT D-Dimer 2861.78 H ABG pH POC ABG pCO2 POC ABG pO2 ABG pO2 ABG HCO3 ABG O2 Saturation ABG Base Excess ABG Hemoglobin ABG Oxyhemoglobin ABG Sodium ABG Potassium ABG Chloride ABG Glucose Oxyhemoglobin Sodium Potassium Chloride Carbon Dioxide BUN Creatinine Glucose POC Glucose Lactic Acid 2.20 H* Calcium Magnesium Ferritin 88717.0 H Total Bilirubin Direct Bilirubin AST ALT Alkaline Phosphatase Lactate Dehydrogenase C-Reactive Protein Total Protein Albumin Triglycerides Arterial Blood Glucose Arterial Blood Ionized Calcium Urine WBC (Auto) Coronavirus (PCR) SARS-CoV-2 IgG Ab Crossmatch 05/09/20 05/09/20 05/09/20 14:20 14:20 15:56 WBC RBC Hgb Hct MCV MCH MCHC RDW Lymph % (Auto) Lymph # (Auto) Seg Neutrophils % Seg Neuts % (Manual) Lymphocytes % (Manual) Nucleated RBC % Seg Neutrophils # Seg Neutrophils # Man Lymphocytes # (Manual) Monocytes # (Manual) PT INR APTT D-Dimer ABG pH POC ABG pCO2 POC ABG pO2 57.3 L ABG pO2 ABG HCO3 ABG O2 Saturation ABG Base Excess ABG Hemoglobin ABG Oxyhemoglobin 86.3 L ABG Sodium 129.9 L ABG Potassium ABG Chloride ABG Glucose 146 H Oxyhemoglobin Sodium Potassium Chloride Carbon Dioxide BUN Creatinine Glucose 143 H POC Glucose Lactic Acid Calcium Magnesium Ferritin 10707.0 H Total Bilirubin Direct Bilirubin AST ALT Alkaline Phosphatase Lactate Dehydrogenase 1953 H C-Reactive Protein 33.50 H Total Protein Albumin Triglycerides Arterial Blood Glucose 146 H Arterial Blood Ionized Calcium 3.9 L Urine WBC (Auto) Coronavirus (PCR) SARS-CoV-2 IgG Ab Crossmatch 05/10/20 05/10/20 05/10/20 10:32 10:32 18:50 WBC 15.4 H RBC Hgb Hct MCV 97 H MCH 33 H MCHC RDW 13.1 L Lymph % (Auto) Lymph # (Auto) Seg Neutrophils % Seg Neuts % (Manual) 89.0 H Lymphocytes % (Manual) 8.0 L Nucleated RBC % Seg Neutrophils # Seg Neutrophils # Man 13.7 H Lymphocytes # (Manual) Monocytes # (Manual) PT INR APTT D-Dimer ABG pH POC ABG pCO2 POC ABG pO2 ABG pO2 ABG HCO3 ABG O2 Saturation ABG Base Excess ABG Hemoglobin ABG Oxyhemoglobin ABG Sodium ABG Potassium ABG Chloride ABG Glucose Oxyhemoglobin Sodium 136 L Potassium Chloride 97.4 L Carbon Dioxide BUN 37 H Creatinine 1.7 H Glucose 209 H POC Glucose Lactic Acid Calcium Magnesium Ferritin > 2000.0 H Total Bilirubin Direct Bilirubin AST ALT Alkaline Phosphatase Lactate Dehydrogenase C-Reactive Protein Total Protein Albumin Triglycerides Arterial Blood Glucose Arterial Blood Ionized Calcium Urine WBC (Auto) Coronavirus (PCR) SARS-CoV-2 IgG Ab Crossmatch 05/10/20 05/10/20 05/10/20 18:50 19:00 Unknown WBC RBC Hgb Hct MCV MCH MCHC RDW Lymph % (Auto) Lymph # (Auto) Seg Neutrophils % Seg Neuts % (Manual) Lymphocytes % (Manual) Nucleated RBC % Seg Neutrophils # Seg Neutrophils # Man Lymphocytes # (Manual) Monocytes # (Manual) PT INR APTT D-Dimer > 52317 H ABG pH POC ABG pCO2 POC ABG pO2 ABG pO2 ABG HCO3 ABG O2 Saturation ABG Base Excess ABG Hemoglobin ABG Oxyhemoglobin ABG Sodium ABG Potassium ABG Chloride ABG Glucose Oxyhemoglobin Sodium Potassium Chloride Carbon Dioxide BUN Creatinine Glucose POC Glucose Lactic Acid Calcium Magnesium Ferritin Total Bilirubin Direct Bilirubin AST ALT Alkaline Phosphatase Lactate Dehydrogenase 1879 H C-Reactive Protein 24.80 H Total Protein Albumin Triglycerides Arterial Blood Glucose Arterial Blood Ionized Calcium Urine WBC (Auto) 11.0 H Coronavirus (PCR) SARS-CoV-2 IgG Ab Crossmatch 05/10/20 05/11/20 05/11/20 Unknown 07:30 07:30 WBC RBC Hgb Hct MCV MCH MCHC RDW Lymph % (Auto) Lymph # (Auto) Seg Neutrophils % Seg Neuts % (Manual) Lymphocytes % (Manual) Nucleated RBC % Seg Neutrophils # Seg Neutrophils # Man Lymphocytes # (Manual) Monocytes # (Manual) PT INR APTT D-Dimer > 2000 H ABG pH POC ABG pCO2 POC ABG pO2 ABG pO2 ABG HCO3 ABG O2 Saturation ABG Base Excess ABG Hemoglobin ABG Oxyhemoglobin ABG Sodium ABG Potassium ABG Chloride ABG Glucose Oxyhemoglobin Sodium Potassium Chloride 96.3 L Carbon Dioxide BUN 36 H Creatinine Glucose 161 H POC Glucose Lactic Acid Calcium 8.3 L Magnesium Ferritin Total Bilirubin 1.50 H Direct Bilirubin 0.6 H AST 178 H ALT 111 H Alkaline Phosphatase Lactate Dehydrogenase C-Reactive Protein Total Protein Albumin 3.0 L Triglycerides Arterial Blood Glucose Arterial Blood Ionized Calcium Urine WBC (Auto) Coronavirus (PCR) Positive A SARS-CoV-2 IgG Ab Crossmatch 05/11/20 05/11/20 05/11/20 07:30 07:30 07:30 WBC RBC Hgb Hct MCV MCH MCHC RDW Lymph % (Auto) Lymph # (Auto) Seg Neutrophils % Seg Neuts % (Manual) Lymphocytes % (Manual) Nucleated RBC % Seg Neutrophils # Seg Neutrophils # Man Lymphocytes # (Manual) Monocytes # (Manual) PT INR APTT D-Dimer ABG pH POC ABG pCO2 POC ABG pO2 ABG pO2 ABG HCO3 ABG O2 Saturation ABG Base Excess ABG Hemoglobin ABG Oxyhemoglobin ABG Sodium ABG Potassium ABG Chloride ABG Glucose Oxyhemoglobin Sodium Potassium Chloride Carbon Dioxide BUN Creatinine Glucose POC Glucose Lactic Acid Calcium Magnesium Ferritin 31290.0 H Total Bilirubin Direct Bilirubin AST ALT Alkaline Phosphatase Lactate Dehydrogenase 1523 H C-Reactive Protein 12.90 H Total Protein Albumin Triglycerides Arterial Blood Glucose Arterial Blood Ionized Calcium Urine WBC (Auto) Coronavirus (PCR) SARS-CoV-2 IgG Ab Reactive A Crossmatch 05/13/20 05/13/20 05/15/20 05:20 05:20 08:15 WBC RBC Hgb Hct MCV MCH MCHC RDW Lymph % (Auto) Lymph # (Auto) Seg Neutrophils % Seg Neuts % (Manual) Lymphocytes % (Manual) Nucleated RBC % Seg Neutrophils # Seg Neutrophils # Man Lymphocytes # (Manual) Monocytes # (Manual) PT INR APTT D-Dimer > 09514 H 5318.28 H ABG pH POC ABG pCO2 POC ABG pO2 ABG pO2 ABG HCO3 ABG O2 Saturation ABG Base Excess ABG Hemoglobin ABG Oxyhemoglobin ABG Sodium ABG Potassium ABG Chloride ABG Glucose Oxyhemoglobin Sodium Potassium Chloride Carbon Dioxide 32 H BUN 30 H Creatinine Glucose 156 H POC Glucose Lactic Acid Calcium Magnesium 2.60 H Ferritin Total Bilirubin 1.40 H Direct Bilirubin AST 121 H ALT 119 H Alkaline Phosphatase Lactate Dehydrogenase 957 H C-Reactive Protein 4.00 H Total Protein Albumin 3.0 L Triglycerides Arterial Blood Glucose Arterial Blood Ionized Calcium Urine WBC (Auto) Coronavirus (PCR) SARS-CoV-2 IgG Ab Crossmatch 05/15/20 05/15/20 05/15/20 08:15 08:15 08:15 WBC 12.4 H RBC Hgb Hct MCV 98 H MCH 33 H MCHC RDW Lymph % (Auto) 9.7 L Lymph # (Auto) Seg Neutrophils % 86.8 H Seg Neuts % (Manual) Lymphocytes % (Manual) Nucleated RBC % Seg Neutrophils # 10.8 H Seg Neutrophils # Man Lymphocytes # (Manual) Monocytes # (Manual) PT INR APTT D-Dimer ABG pH POC ABG pCO2 POC ABG pO2 ABG pO2 ABG HCO3 ABG O2 Saturation ABG Base Excess ABG Hemoglobin ABG Oxyhemoglobin ABG Sodium ABG Potassium ABG Chloride ABG Glucose Oxyhemoglobin Sodium Potassium Chloride 94.8 L Carbon Dioxide 32 H BUN 22 H Creatinine Glucose 115 H POC Glucose Lactic Acid Calcium 8.3 L Magnesium Ferritin 2494.0 H Total Bilirubin Direct Bilirubin AST 73 H ALT 121 H Alkaline Phosphatase Lactate Dehydrogenase 835 H C-Reactive Protein 3.40 H Total Protein 6.1 L Albumin 3.0 L Triglycerides Arterial Blood Glucose Arterial Blood Ionized Calcium Urine WBC (Auto) Coronavirus (PCR) SARS-CoV-2 IgG Ab Crossmatch 05/17/20 05/17/20 05/17/20 05:50 05:50 05:50 WBC RBC Hgb Hct MCV MCH MCHC RDW Lymph % (Auto) Lymph # (Auto) Seg Neutrophils % Seg Neuts % (Manual) Lymphocytes % (Manual) Nucleated RBC % Seg Neutrophils # Seg Neutrophils # Man Lymphocytes # (Manual) Monocytes # (Manual) PT INR APTT D-Dimer 2911.42 H ABG pH POC ABG pCO2 POC ABG pO2 ABG pO2 ABG HCO3 ABG O2 Saturation ABG Base Excess ABG Hemoglobin ABG Oxyhemoglobin ABG Sodium ABG Potassium ABG Chloride ABG Glucose Oxyhemoglobin Sodium 136 L Potassium Chloride 96.0 L Carbon Dioxide 34 H BUN 22 H Creatinine Glucose 140 H POC Glucose Lactic Acid Calcium Magnesium Ferritin 2082.0 H Total Bilirubin Direct Bilirubin AST ALT 75 H Alkaline Phosphatase Lactate Dehydrogenase 601 H C-Reactive Protein 2.70 H Total Protein Albumin 2.9 L Triglycerides Arterial Blood Glucose Arterial Blood Ionized Calcium Urine WBC (Auto) Coronavirus (PCR) SARS-CoV-2 IgG Ab Crossmatch 05/17/20 05/18/20 05/20/20 05:50 12:22 08:16 WBC RBC Hgb Hct MCV 98 H MCH 33 H MCHC RDW Lymph % (Auto) 8.0 L Lymph # (Auto) 0.8 L Seg Neutrophils % 89.3 H Seg Neuts % (Manual) Lymphocytes % (Manual) Nucleated RBC % Seg Neutrophils # 8.8 H Seg Neutrophils # Man Lymphocytes # (Manual) Monocytes # (Manual) PT INR APTT D-Dimer 1887.82 H ABG pH POC ABG pCO2 POC ABG pO2 ABG pO2 ABG HCO3 ABG O2 Saturation ABG Base Excess ABG Hemoglobin ABG Oxyhemoglobin ABG Sodium ABG Potassium ABG Chloride ABG Glucose Oxyhemoglobin Sodium Potassium Chloride Carbon Dioxide BUN Creatinine Glucose POC Glucose 178 H Lactic Acid Calcium Magnesium Ferritin Total Bilirubin Direct Bilirubin AST ALT Alkaline Phosphatase Lactate Dehydrogenase C-Reactive Protein Total Protein Albumin Triglycerides Arterial Blood Glucose Arterial Blood Ionized Calcium Urine WBC (Auto) Coronavirus (PCR) SARS-CoV-2 IgG Ab Crossmatch 05/20/20 05/20/20 05/21/20 08:16 08:16 21:10 WBC RBC Hgb Hct MCV MCH MCHC RDW Lymph % (Auto) Lymph # (Auto) Seg Neutrophils % Seg Neuts % (Manual) Lymphocytes % (Manual) Nucleated RBC % Seg Neutrophils # Seg Neutrophils # Man Lymphocytes # (Manual) Monocytes # (Manual) PT INR APTT D-Dimer ABG pH 7.483 H POC ABG pCO2 POC ABG pO2 ABG pO2 50.0 L ABG HCO3 27.0 H ABG O2 Saturation 86.2 L ABG Base Excess 3.7 H ABG Hemoglobin ABG Oxyhemoglobin ABG Sodium ABG Potassium ABG Chloride ABG Glucose Oxyhemoglobin 84.2 L Sodium Potassium Chloride Carbon Dioxide BUN Creatinine Glucose POC Glucose Lactic Acid Calcium Magnesium Ferritin 1960.0 H Total Bilirubin Direct Bilirubin AST ALT Alkaline Phosphatase Lactate Dehydrogenase 705 H C-Reactive Protein 3.10 H Total Protein Albumin Triglycerides Arterial Blood Glucose Arterial Blood Ionized Calcium Urine WBC (Auto) Coronavirus (PCR) SARS-CoV-2 IgG Ab Crossmatch 05/22/20 05/22/20 05/22/20 04:01 07:53 07:53 WBC 19.2 H RBC Hgb Hct MCV 98 H MCH 34 H MCHC RDW Lymph % (Auto) Lymph # (Auto) Seg Neutrophils % Seg Neuts % (Manual) 96.0 H Lymphocytes % (Manual) 1.0 L Nucleated RBC % Seg Neutrophils # Seg Neutrophils # Man 18.4 H Lymphocytes # (Manual) 0.2 L Monocytes # (Manual) PT INR APTT D-Dimer ABG pH POC ABG pCO2 53.8 H POC ABG pO2 125.5 H ABG pO2 ABG HCO3 ABG O2 Saturation ABG Base Excess ABG Hemoglobin ABG Oxyhemoglobin ABG Sodium 131.8 L ABG Potassium 4.8 H ABG Chloride 94.0 L ABG Glucose 163 H Oxyhemoglobin Sodium 131 L Potassium Chloride 93.4 L Carbon Dioxide BUN 40 H Creatinine Glucose 176 H POC Glucose Lactic Acid Calcium Magnesium 2.70 H Ferritin Total Bilirubin 1.80 H Direct Bilirubin AST 45 H ALT 116 H Alkaline Phosphatase 181 H Lactate Dehydrogenase C-Reactive Protein Total Protein Albumin 2.6 L Triglycerides Arterial Blood Glucose 163 H Arterial Blood Ionized Calcium 4.5 L Urine WBC (Auto) Coronavirus (PCR) SARS-CoV-2 IgG Ab Crossmatch 05/23/20 05/24/20 05/24/20 04:17 03:07 04:08 WBC RBC Hgb Hct MCV MCH MCHC RDW Lymph % (Auto) Lymph # (Auto) Seg Neutrophils % Seg Neuts % (Manual) Lymphocytes % (Manual) Nucleated RBC % Seg Neutrophils # Seg Neutrophils # Man Lymphocytes # (Manual) Monocytes # (Manual) PT INR APTT D-Dimer ABG pH 7.328 L POC ABG pCO2 POC ABG pO2 ABG pO2 72.8 L 73.4 L ABG HCO3 31.0 H 34.0 H ABG O2 Saturation 93.5 L ABG Base Excess 3.5 H 7.7 H ABG Hemoglobin 13.3 L 12.1 L ABG Oxyhemoglobin ABG Sodium ABG Potassium ABG Chloride ABG Glucose Oxyhemoglobin 91.5 L 94.3 L Sodium Potassium Chloride Carbon Dioxide BUN Creatinine Glucose POC Glucose 155 H Lactic Acid Calcium Magnesium Ferritin Total Bilirubin Direct Bilirubin AST ALT Alkaline Phosphatase Lactate Dehydrogenase C-Reactive Protein Total Protein Albumin Triglycerides Arterial Blood Glucose Arterial Blood Ionized Calcium Urine WBC (Auto) Coronavirus (PCR) SARS-CoV-2 IgG Ab Crossmatch 05/24/20 05/24/20 05/24/20 09:33 12:21 17:52 WBC RBC Hgb Hct MCV MCH MCHC RDW Lymph % (Auto) Lymph # (Auto) Seg Neutrophils % Seg Neuts % (Manual) Lymphocytes % (Manual) Nucleated RBC % Seg Neutrophils # Seg Neutrophils # Man Lymphocytes # (Manual) Monocytes # (Manual) PT INR APTT D-Dimer ABG pH POC ABG pCO2 POC ABG pO2 ABG pO2 ABG HCO3 ABG O2 Saturation ABG Base Excess ABG Hemoglobin ABG Oxyhemoglobin ABG Sodium ABG Potassium ABG Chloride ABG Glucose Oxyhemoglobin Sodium Potassium Chloride Carbon Dioxide 34 H D BUN 28 H Creatinine 0.7 L Glucose 168 H POC Glucose 173 H 164 H Lactic Acid Calcium Magnesium Ferritin Total Bilirubin Direct Bilirubin AST ALT Alkaline Phosphatase Lactate Dehydrogenase C-Reactive Protein Total Protein Albumin Triglycerides Arterial Blood Glucose Arterial Blood Ionized Calcium Urine WBC (Auto) Coronavirus (PCR) SARS-CoV-2 IgG Ab Crossmatch 05/24/20 05/25/20 05/25/20 23:47 04:29 05:46 WBC RBC Hgb Hct MCV MCH MCHC RDW Lymph % (Auto) Lymph # (Auto) Seg Neutrophils % Seg Neuts % (Manual) Lymphocytes % (Manual) Nucleated RBC % Seg Neutrophils # Seg Neutrophils # Man Lymphocytes # (Manual) Monocytes # (Manual) PT INR APTT D-Dimer ABG pH POC ABG pCO2 68.6 H POC ABG pO2 ABG pO2 ABG HCO3 ABG O2 Saturation ABG Base Excess ABG Hemoglobin ABG Oxyhemoglobin ABG Sodium ABG Potassium 4.7 H ABG Chloride ABG Glucose 226 H Oxyhemoglobin Sodium Potassium Chloride Carbon Dioxide BUN Creatinine Glucose POC Glucose 171 H 201 H Lactic Acid Calcium Magnesium Ferritin Total Bilirubin Direct Bilirubin AST ALT Alkaline Phosphatase Lactate Dehydrogenase C-Reactive Protein Total Protein Albumin Triglycerides Arterial Blood Glucose 226 H Arterial Blood Ionized Calcium Urine WBC (Auto) Coronavirus (PCR) SARS-CoV-2 IgG Ab Crossmatch 05/25/20 05/25/20 05/25/20 08:37 08:37 12:38 WBC 12.0 H RBC 3.64 L Hgb Hct MCV 99 H MCH 33 H MCHC RDW Lymph % (Auto) Lymph # (Auto) Seg Neutrophils % Seg Neuts % (Manual) Lymphocytes % (Manual) Nucleated RBC % Seg Neutrophils # Seg Neutrophils # Man Lymphocytes # (Manual) Monocytes # (Manual) PT INR APTT D-Dimer ABG pH POC ABG pCO2 POC ABG pO2 ABG pO2 ABG HCO3 ABG O2 Saturation ABG Base Excess ABG Hemoglobin ABG Oxyhemoglobin ABG Sodium ABG Potassium ABG Chloride ABG Glucose Oxyhemoglobin Sodium Potassium Chloride 97.3 L Carbon Dioxide 35 H BUN 25 H Creatinine 0.7 L Glucose 191 H POC Glucose 182 H Lactic Acid Calcium Magnesium Ferritin Total Bilirubin Direct Bilirubin AST ALT Alkaline Phosphatase Lactate Dehydrogenase C-Reactive Protein Total Protein Albumin Triglycerides Arterial Blood Glucose Arterial Blood Ionized Calcium Urine WBC (Auto) Coronavirus (PCR) SARS-CoV-2 IgG Ab Crossmatch 05/25/20 05/26/20 05/26/20 18:16 00:06 04:50 WBC RBC Hgb Hct MCV MCH MCHC RDW Lymph % (Auto) Lymph # (Auto) Seg Neutrophils % Seg Neuts % (Manual) Lymphocytes % (Manual) Nucleated RBC % Seg Neutrophils # Seg Neutrophils # Man Lymphocytes # (Manual) Monocytes # (Manual) PT INR APTT D-Dimer ABG pH POC ABG pCO2 POC ABG pO2 ABG pO2 221.5 H ABG HCO3 40.4 H ABG O2 Saturation 99.3 H ABG Base Excess 12.8 H ABG Hemoglobin 10.4 L ABG Oxyhemoglobin ABG Sodium ABG Potassium ABG Chloride ABG Glucose Oxyhemoglobin Sodium Potassium Chloride Carbon Dioxide BUN Creatinine Glucose POC Glucose 176 H 152 H Lactic Acid Calcium Magnesium Ferritin Total Bilirubin Direct Bilirubin AST ALT Alkaline Phosphatase Lactate Dehydrogenase C-Reactive Protein Total Protein Albumin Triglycerides Arterial Blood Glucose Arterial Blood Ionized Calcium Urine WBC (Auto) Coronavirus (PCR) SARS-CoV-2 IgG Ab Crossmatch 05/26/20 05/26/20 05/26/20 06:11 07:51 07:51 WBC 13.4 H RBC 3.64 L Hgb Hct MCV 98 H MCH 33 H MCHC RDW Lymph % (Auto) Lymph # (Auto) Seg Neutrophils % Seg Neuts % (Manual) Lymphocytes % (Manual) Nucleated RBC % Seg Neutrophils # Seg Neutrophils # Man Lymphocytes # (Manual) Monocytes # (Manual) PT INR APTT D-Dimer ABG pH POC ABG pCO2 POC ABG pO2 ABG pO2 ABG HCO3 ABG O2 Saturation ABG Base Excess ABG Hemoglobin ABG Oxyhemoglobin ABG Sodium ABG Potassium ABG Chloride ABG Glucose Oxyhemoglobin Sodium Potassium Chloride 96.6 L Carbon Dioxide 39 H BUN 29 H Creatinine 0.7 L Glucose 174 H POC Glucose 165 H Lactic Acid Calcium Magnesium Ferritin Total Bilirubin Direct Bilirubin AST ALT Alkaline Phosphatase Lactate Dehydrogenase C-Reactive Protein Total Protein Albumin Triglycerides Arterial Blood Glucose Arterial Blood Ionized Calcium Urine WBC (Auto) Coronavirus (PCR) SARS-CoV-2 IgG Ab Crossmatch 05/26/20 05/27/20 05/27/20 23:23 03:43 05:29 WBC RBC Hgb Hct MCV MCH MCHC RDW Lymph % (Auto) Lymph # (Auto) Seg Neutrophils % Seg Neuts % (Manual) Lymphocytes % (Manual) Nucleated RBC % Seg Neutrophils # Seg Neutrophils # Man Lymphocytes # (Manual) Monocytes # (Manual) PT INR APTT D-Dimer ABG pH 7.480 H POC ABG pCO2 52.4 H POC ABG pO2 61.4 L ABG pO2 ABG HCO3 ABG O2 Saturation ABG Base Excess ABG Hemoglobin ABG Oxyhemoglobin ABG Sodium 134.9 L ABG Potassium ABG Chloride 95.0 L ABG Glucose 221 H Oxyhemoglobin Sodium Potassium Chloride Carbon Dioxide BUN Creatinine Glucose POC Glucose 169 H 227 H Lactic Acid Calcium Magnesium Ferritin Total Bilirubin Direct Bilirubin AST ALT Alkaline Phosphatase Lactate Dehydrogenase C-Reactive Protein Total Protein Albumin Triglycerides Arterial Blood Glucose 221 H Arterial Blood Ionized Calcium 4.5 L Urine WBC (Auto) Coronavirus (PCR) SARS-CoV-2 IgG Ab Crossmatch 05/27/20 05/27/20 05/27/20 07:19 12:18 13:50 WBC RBC Hgb Hct MCV MCH MCHC RDW Lymph % (Auto) Lymph # (Auto) Seg Neutrophils % Seg Neuts % (Manual) Lymphocytes % (Manual) Nucleated RBC % Seg Neutrophils # Seg Neutrophils # Man Lymphocytes # (Manual) Monocytes # (Manual) PT INR APTT D-Dimer ABG pH POC ABG pCO2 POC ABG pO2 ABG pO2 ABG HCO3 ABG O2 Saturation ABG Base Excess ABG Hemoglobin ABG Oxyhemoglobin ABG Sodium ABG Potassium ABG Chloride ABG Glucose Oxyhemoglobin Sodium Potassium Chloride Carbon Dioxide BUN Creatinine Glucose POC Glucose 114 H 148 H Lactic Acid Calcium Magnesium Ferritin Total Bilirubin Direct Bilirubin AST ALT Alkaline Phosphatase Lactate Dehydrogenase C-Reactive Protein Total Protein Albumin Triglycerides 247 H Arterial Blood Glucose Arterial Blood Ionized Calcium Urine WBC (Auto) Coronavirus (PCR) SARS-CoV-2 IgG Ab Crossmatch 05/28/20 05/28/20 05/28/20 00:13 04:16 05:22 WBC RBC Hgb Hct MCV MCH MCHC RDW Lymph % (Auto) Lymph # (Auto) Seg Neutrophils % Seg Neuts % (Manual) Lymphocytes % (Manual) Nucleated RBC % Seg Neutrophils # Seg Neutrophils # Man Lymphocytes # (Manual) Monocytes # (Manual) PT INR APTT D-Dimer ABG pH POC ABG pCO2 64.4 H POC ABG pO2 60.5 L ABG pO2 ABG HCO3 ABG O2 Saturation ABG Base Excess ABG Hemoglobin ABG Oxyhemoglobin ABG Sodium ABG Potassium ABG Chloride 95.0 L ABG Glucose 209 H Oxyhemoglobin Sodium Potassium Chloride Carbon Dioxide BUN Creatinine Glucose POC Glucose 155 H 186 H Lactic Acid Calcium Magnesium Ferritin Total Bilirubin Direct Bilirubin AST ALT Alkaline Phosphatase Lactate Dehydrogenase C-Reactive Protein Total Protein Albumin Triglycerides Arterial Blood Glucose 209 H Arterial Blood Ionized Calcium Urine WBC (Auto) Coronavirus (PCR) SARS-CoV-2 IgG Ab Crossmatch 05/28/20 05/28/20 05/29/20 12:45 17:39 00:37 WBC RBC Hgb Hct MCV MCH MCHC RDW Lymph % (Auto) Lymph # (Auto) Seg Neutrophils % Seg Neuts % (Manual) Lymphocytes % (Manual) Nucleated RBC % Seg Neutrophils # Seg Neutrophils # Man Lymphocytes # (Manual) Monocytes # (Manual) PT INR APTT D-Dimer ABG pH POC ABG pCO2 POC ABG pO2 ABG pO2 ABG HCO3 ABG O2 Saturation ABG Base Excess ABG Hemoglobin ABG Oxyhemoglobin ABG Sodium ABG Potassium ABG Chloride ABG Glucose Oxyhemoglobin Sodium Potassium Chloride Carbon Dioxide BUN Creatinine Glucose POC Glucose 143 H 164 H 221 H Lactic Acid Calcium Magnesium Ferritin Total Bilirubin Direct Bilirubin AST ALT Alkaline Phosphatase Lactate Dehydrogenase C-Reactive Protein Total Protein Albumin Triglycerides Arterial Blood Glucose Arterial Blood Ionized Calcium Urine WBC (Auto) Coronavirus (PCR) SARS-CoV-2 IgG Ab Crossmatch 05/29/20 05/29/20 05/29/20 04:15 05:33 12:34 WBC RBC Hgb Hct MCV MCH MCHC RDW Lymph % (Auto) Lymph # (Auto) Seg Neutrophils % Seg Neuts % (Manual) Lymphocytes % (Manual) Nucleated RBC % Seg Neutrophils # Seg Neutrophils # Man Lymphocytes # (Manual) Monocytes # (Manual) PT INR APTT D-Dimer ABG pH 7.463 H POC ABG pCO2 56.3 H POC ABG pO2 81.2 L ABG pO2 ABG HCO3 ABG O2 Saturation ABG Base Excess ABG Hemoglobin ABG Oxyhemoglobin ABG Sodium ABG Potassium ABG Chloride 96.0 L ABG Glucose 194 H Oxyhemoglobin Sodium Potassium Chloride Carbon Dioxide BUN Creatinine Glucose POC Glucose 133 H 221 H Lactic Acid Calcium Magnesium Ferritin Total Bilirubin Direct Bilirubin AST ALT Alkaline Phosphatase Lactate Dehydrogenase C-Reactive Protein Total Protein Albumin Triglycerides Arterial Blood Glucose 194 H Arterial Blood Ionized Calcium 4.5 L Urine WBC (Auto) Coronavirus (PCR) SARS-CoV-2 IgG Ab Crossmatch 05/29/20 05/30/20 05/30/20 18:07 00:12 05:38 WBC RBC Hgb Hct MCV MCH MCHC RDW Lymph % (Auto) Lymph # (Auto) Seg Neutrophils % Seg Neuts % (Manual) Lymphocytes % (Manual) Nucleated RBC % Seg Neutrophils # Seg Neutrophils # Man Lymphocytes # (Manual) Monocytes # (Manual) PT INR APTT D-Dimer ABG pH POC ABG pCO2 POC ABG pO2 ABG pO2 ABG HCO3 ABG O2 Saturation ABG Base Excess ABG Hemoglobin ABG Oxyhemoglobin ABG Sodium ABG Potassium ABG Chloride ABG Glucose Oxyhemoglobin Sodium Potassium Chloride Carbon Dioxide BUN Creatinine Glucose POC Glucose 162 H 190 H 208 H Lactic Acid Calcium Magnesium Ferritin Total Bilirubin Direct Bilirubin AST ALT Alkaline Phosphatase Lactate Dehydrogenase C-Reactive Protein Total Protein Albumin Triglycerides Arterial Blood Glucose Arterial Blood Ionized Calcium Urine WBC (Auto) Coronavirus (PCR) SARS-CoV-2 IgG Ab Crossmatch 05/30/20 05/30/20 05/30/20 09:30 11:35 11:54 WBC 12.4 H RBC 3.48 L Hgb 11.3 L Hct 34.6 L MCV 99 H MCH 33 H MCHC RDW Lymph % (Auto) Lymph # (Auto) Seg Neutrophils % Seg Neuts % (Manual) Lymphocytes % (Manual) Nucleated RBC % Seg Neutrophils # Seg Neutrophils # Man Lymphocytes # (Manual) Monocytes # (Manual) PT INR APTT D-Dimer ABG pH 7.455 H POC ABG pCO2 57.5 H POC ABG pO2 81.5 L ABG pO2 ABG HCO3 ABG O2 Saturation ABG Base Excess ABG Hemoglobin ABG Oxyhemoglobin ABG Sodium ABG Potassium ABG Chloride 96.0 L ABG Glucose 204 H Oxyhemoglobin Sodium Potassium Chloride Carbon Dioxide BUN Creatinine Glucose POC Glucose 183 H Lactic Acid Calcium Magnesium Ferritin Total Bilirubin Direct Bilirubin AST ALT Alkaline Phosphatase Lactate Dehydrogenase C-Reactive Protein Total Protein Albumin Triglycerides Arterial Blood Glucose 204 H Arterial Blood Ionized Calcium Urine WBC (Auto) Coronavirus (PCR) SARS-CoV-2 IgG Ab Crossmatch 05/30/20 05/31/20 05/31/20 18:01 00:10 03:22 WBC RBC Hgb Hct MCV MCH MCHC RDW Lymph % (Auto) Lymph # (Auto) Seg Neutrophils % Seg Neuts % (Manual) Lymphocytes % (Manual) Nucleated RBC % Seg Neutrophils # Seg Neutrophils # Man Lymphocytes # (Manual) Monocytes # (Manual) PT INR APTT D-Dimer ABG pH POC ABG pCO2 60.4 H POC ABG pO2 71.5 L ABG pO2 ABG HCO3 ABG O2 Saturation ABG Base Excess ABG Hemoglobin ABG Oxyhemoglobin ABG Sodium ABG Potassium ABG Chloride 96.0 L ABG Glucose 169 H Oxyhemoglobin Sodium Potassium Chloride Carbon Dioxide BUN Creatinine Glucose POC Glucose 184 H 135 H Lactic Acid Calcium Magnesium Ferritin Total Bilirubin Direct Bilirubin AST ALT Alkaline Phosphatase Lactate Dehydrogenase C-Reactive Protein Total Protein Albumin Triglycerides Arterial Blood Glucose 169 H Arterial Blood Ionized Calcium 4.5 L Urine WBC (Auto) Coronavirus (PCR) SARS-CoV-2 IgG Ab Crossmatch 05/31/20 05/31/20 05/31/20 05:24 11:18 14:41 WBC RBC Hgb Hct MCV MCH MCHC RDW Lymph % (Auto) Lymph # (Auto) Seg Neutrophils % Seg Neuts % (Manual) Lymphocytes % (Manual) Nucleated RBC % Seg Neutrophils # Seg Neutrophils # Man Lymphocytes # (Manual) Monocytes # (Manual) PT INR APTT D-Dimer ABG pH POC ABG pCO2 POC ABG pO2 ABG pO2 ABG HCO3 ABG O2 Saturation ABG Base Excess ABG Hemoglobin ABG Oxyhemoglobin ABG Sodium ABG Potassium ABG Chloride ABG Glucose Oxyhemoglobin Sodium Potassium Chloride 96.8 L Carbon Dioxide 37 H BUN 31 H Creatinine 0.6 L Glucose 213 H POC Glucose 164 H 208 H Lactic Acid Calcium Magnesium Ferritin Total Bilirubin Direct Bilirubin AST ALT Alkaline Phosphatase Lactate Dehydrogenase C-Reactive Protein Total Protein Albumin Triglycerides Arterial Blood Glucose Arterial Blood Ionized Calcium Urine WBC (Auto) Coronavirus (PCR) SARS-CoV-2 IgG Ab Crossmatch 05/31/20 05/31/20 06/01/20 17:37 23:47 03:48 WBC RBC Hgb Hct MCV MCH MCHC RDW Lymph % (Auto) Lymph # (Auto) Seg Neutrophils % Seg Neuts % (Manual) Lymphocytes % (Manual) Nucleated RBC % Seg Neutrophils # Seg Neutrophils # Man Lymphocytes # (Manual) Monocytes # (Manual) PT INR APTT D-Dimer ABG pH POC ABG pCO2 59.7 H POC ABG pO2 73.9 L ABG pO2 ABG HCO3 ABG O2 Saturation ABG Base Excess ABG Hemoglobin ABG Oxyhemoglobin ABG Sodium ABG Potassium ABG Chloride 95.0 L ABG Glucose 256 H Oxyhemoglobin Sodium Potassium Chloride Carbon Dioxide BUN Creatinine Glucose POC Glucose 168 H 178 H Lactic Acid Calcium Magnesium Ferritin Total Bilirubin Direct Bilirubin AST ALT Alkaline Phosphatase Lactate Dehydrogenase C-Reactive Protein Total Protein Albumin Triglycerides Arterial Blood Glucose 256 H Arterial Blood Ionized Calcium Urine WBC (Auto) Coronavirus (PCR) SARS-CoV-2 IgG Ab Crossmatch 06/01/20 06/01/20 06/01/20 05:01 07:47 07:47 WBC 14.4 H RBC 3.46 L Hgb 11.1 L Hct 34.3 L MCV 99 H MCH MCHC RDW Lymph % (Auto) Lymph # (Auto) Seg Neutrophils % Seg Neuts % (Manual) 86.0 H Lymphocytes % (Manual) 9.0 L Nucleated RBC % Seg Neutrophils # Seg Neutrophils # Man 12.4 H Lymphocytes # (Manual) Monocytes # (Manual) PT INR APTT D-Dimer ABG pH POC ABG pCO2 POC ABG pO2 ABG pO2 ABG HCO3 ABG O2 Saturation ABG Base Excess ABG Hemoglobin ABG Oxyhemoglobin ABG Sodium ABG Potassium ABG Chloride ABG Glucose Oxyhemoglobin Sodium Potassium Chloride Carbon Dioxide BUN Creatinine Glucose POC Glucose 197 H Lactic Acid Calcium Magnesium Ferritin Total Bilirubin Direct Bilirubin AST ALT Alkaline Phosphatase Lactate Dehydrogenase C-Reactive Protein Total Protein Albumin Triglycerides 244 H Arterial Blood Glucose Arterial Blood Ionized Calcium Urine WBC (Auto) Coronavirus (PCR) SARS-CoV-2 IgG Ab Crossmatch 06/01/20 06/01/20 06/01/20 07:47 11:46 18:15 WBC RBC Hgb Hct MCV MCH MCHC RDW Lymph % (Auto) Lymph # (Auto) Seg Neutrophils % Seg Neuts % (Manual) Lymphocytes % (Manual) Nucleated RBC % Seg Neutrophils # Seg Neutrophils # Man Lymphocytes # (Manual) Monocytes # (Manual) PT INR APTT D-Dimer ABG pH POC ABG pCO2 POC ABG pO2 ABG pO2 ABG HCO3 ABG O2 Saturation ABG Base Excess ABG Hemoglobin ABG Oxyhemoglobin ABG Sodium ABG Potassium ABG Chloride ABG Glucose Oxyhemoglobin Sodium Potassium Chloride 95.4 L Carbon Dioxide 35 H BUN 30 H Creatinine 0.5 L Glucose 214 H POC Glucose 181 H 221 H Lactic Acid Calcium Magnesium Ferritin Total Bilirubin Direct Bilirubin AST 54 H ALT 235 H Alkaline Phosphatase Lactate Dehydrogenase C-Reactive Protein Total Protein Albumin 2.9 L Triglycerides Arterial Blood Glucose Arterial Blood Ionized Calcium Urine WBC (Auto) Coronavirus (PCR) SARS-CoV-2 IgG Ab Crossmatch 06/01/20 06/02/20 06/02/20 23:12 04:00 05:31 WBC RBC Hgb Hct MCV MCH MCHC RDW Lymph % (Auto) Lymph # (Auto) Seg Neutrophils % Seg Neuts % (Manual) Lymphocytes % (Manual) Nucleated RBC % Seg Neutrophils # Seg Neutrophils # Man Lymphocytes # (Manual) Monocytes # (Manual) PT INR APTT D-Dimer ABG pH 7.465 H POC ABG pCO2 POC ABG pO2 ABG pO2 203.4 H ABG HCO3 41.2 H ABG O2 Saturation 99.3 H ABG Base Excess 15.1 H ABG Hemoglobin 11.5 L ABG Oxyhemoglobin ABG Sodium ABG Potassium ABG Chloride ABG Glucose Oxyhemoglobin Sodium Potassium Chloride Carbon Dioxide BUN Creatinine Glucose POC Glucose 197 H 184 H Lactic Acid Calcium Magnesium Ferritin Total Bilirubin Direct Bilirubin AST ALT Alkaline Phosphatase Lactate Dehydrogenase C-Reactive Protein Total Protein Albumin Triglycerides Arterial Blood Glucose Arterial Blood Ionized Calcium Urine WBC (Auto) Coronavirus (PCR) SARS-CoV-2 IgG Ab Crossmatch 06/02/20 06/02/20 06/02/20 11:49 18:06 23:00 WBC RBC Hgb Hct MCV MCH MCHC RDW Lymph % (Auto) Lymph # (Auto) Seg Neutrophils % Seg Neuts % (Manual) Lymphocytes % (Manual) Nucleated RBC % Seg Neutrophils # Seg Neutrophils # Man Lymphocytes # (Manual) Monocytes # (Manual) PT INR APTT D-Dimer ABG pH POC ABG pCO2 POC ABG pO2 ABG pO2 ABG HCO3 ABG O2 Saturation ABG Base Excess ABG Hemoglobin ABG Oxyhemoglobin ABG Sodium ABG Potassium ABG Chloride ABG Glucose Oxyhemoglobin Sodium Potassium Chloride Carbon Dioxide BUN Creatinine Glucose POC Glucose 195 H 177 H 228 H Lactic Acid Calcium Magnesium Ferritin Total Bilirubin Direct Bilirubin AST ALT Alkaline Phosphatase Lactate Dehydrogenase C-Reactive Protein Total Protein Albumin Triglycerides Arterial Blood Glucose Arterial Blood Ionized Calcium Urine WBC (Auto) Coronavirus (PCR) SARS-CoV-2 IgG Ab Crossmatch 06/03/20 06/03/20 06/03/20 03:58 05:19 12:21 WBC RBC Hgb Hct MCV MCH MCHC RDW Lymph % (Auto) Lymph # (Auto) Seg Neutrophils % Seg Neuts % (Manual) Lymphocytes % (Manual) Nucleated RBC % Seg Neutrophils # Seg Neutrophils # Man Lymphocytes # (Manual) Monocytes # (Manual) PT INR APTT D-Dimer ABG pH POC ABG pCO2 POC ABG pO2 ABG pO2 171.0 H ABG HCO3 42.8 H ABG O2 Saturation ABG Base Excess 15.6 H ABG Hemoglobin 12.3 L ABG Oxyhemoglobin ABG Sodium ABG Potassium ABG Chloride ABG Glucose Oxyhemoglobin Sodium Potassium Chloride Carbon Dioxide BUN Creatinine Glucose POC Glucose 122 H 207 H Lactic Acid Calcium Magnesium Ferritin Total Bilirubin Direct Bilirubin AST ALT Alkaline Phosphatase Lactate Dehydrogenase C-Reactive Protein Total Protein Albumin Triglycerides Arterial Blood Glucose Arterial Blood Ionized Calcium Urine WBC (Auto) Coronavirus (PCR) SARS-CoV-2 IgG Ab Crossmatch 06/03/20 06/03/20 06/04/20 17:27 23:50 03:55 WBC RBC Hgb Hct MCV MCH MCHC RDW Lymph % (Auto) Lymph # (Auto) Seg Neutrophils % Seg Neuts % (Manual) Lymphocytes % (Manual) Nucleated RBC % Seg Neutrophils # Seg Neutrophils # Man Lymphocytes # (Manual) Monocytes # (Manual) PT INR APTT D-Dimer ABG pH POC ABG pCO2 POC ABG pO2 ABG pO2 117.2 H ABG HCO3 42.4 H ABG O2 Saturation ABG Base Excess 15.3 H ABG Hemoglobin 10.5 L ABG Oxyhemoglobin ABG Sodium ABG Potassium ABG Chloride ABG Glucose Oxyhemoglobin Sodium Potassium Chloride Carbon Dioxide BUN Creatinine Glucose POC Glucose 157 H 214 H Lactic Acid Calcium Magnesium Ferritin Total Bilirubin Direct Bilirubin AST ALT Alkaline Phosphatase Lactate Dehydrogenase C-Reactive Protein Total Protein Albumin Triglycerides Arterial Blood Glucose Arterial Blood Ionized Calcium Urine WBC (Auto) Coronavirus (PCR) SARS-CoV-2 IgG Ab Crossmatch 06/04/20 06/04/20 06/04/20 05:49 11:41 17:30 WBC RBC Hgb Hct MCV MCH MCHC RDW Lymph % (Auto) Lymph # (Auto) Seg Neutrophils % Seg Neuts % (Manual) Lymphocytes % (Manual) Nucleated RBC % Seg Neutrophils # Seg Neutrophils # Man Lymphocytes # (Manual) Monocytes # (Manual) PT INR APTT D-Dimer ABG pH POC ABG pCO2 POC ABG pO2 ABG pO2 ABG HCO3 ABG O2 Saturation ABG Base Excess ABG Hemoglobin ABG Oxyhemoglobin ABG Sodium ABG Potassium ABG Chloride ABG Glucose Oxyhemoglobin Sodium Potassium Chloride Carbon Dioxide BUN Creatinine Glucose POC Glucose 149 H 233 H 156 H Lactic Acid Calcium Magnesium Ferritin Total Bilirubin Direct Bilirubin AST ALT Alkaline Phosphatase Lactate Dehydrogenase C-Reactive Protein Total Protein Albumin Triglycerides Arterial Blood Glucose Arterial Blood Ionized Calcium Urine WBC (Auto) Coronavirus (PCR) SARS-CoV-2 IgG Ab Crossmatch 06/04/20 06/04/20 06/04/20 19:01 20:53 23:41 WBC RBC 3.18 L Hgb 10.8 L Hct 31.8 L MCV 100 H MCH 34 H MCHC RDW Lymph % (Auto) Lymph # (Auto) Seg Neutrophils % Seg Neuts % (Manual) 86.0 H Lymphocytes % (Manual) 10.0 L Nucleated RBC % 1.0 H Seg Neutrophils # Seg Neutrophils # Man 8.5 H Lymphocytes # (Manual) 1.0 L Monocytes # (Manual) PT INR APTT D-Dimer ABG pH POC ABG pCO2 POC ABG pO2 ABG pO2 ABG HCO3 ABG O2 Saturation ABG Base Excess ABG Hemoglobin ABG Oxyhemoglobin ABG Sodium ABG Potassium ABG Chloride ABG Glucose Oxyhemoglobin Sodium Potassium 3.4 L D Chloride 96.5 L Carbon Dioxide 41 H* BUN 27 H Creatinine 0.5 L Glucose 173 H POC Glucose 217 H Lactic Acid Calcium Magnesium Ferritin Total Bilirubin Direct Bilirubin AST ALT Alkaline Phosphatase Lactate Dehydrogenase C-Reactive Protein Total Protein Albumin Triglycerides Arterial Blood Glucose Arterial Blood Ionized Calcium Urine WBC (Auto) Coronavirus (PCR) SARS-CoV-2 IgG Ab Crossmatch 06/05/20 06/05/20 06/05/20 06:05 11:54 12:35 WBC RBC Hgb Hct MCV MCH MCHC RDW Lymph % (Auto) Lymph # (Auto) Seg Neutrophils % Seg Neuts % (Manual) Lymphocytes % (Manual) Nucleated RBC % Seg Neutrophils # Seg Neutrophils # Man Lymphocytes # (Manual) Monocytes # (Manual) PT INR APTT D-Dimer ABG pH POC ABG pCO2 POC ABG pO2 ABG pO2 127.9 H ABG HCO3 41.1 H ABG O2 Saturation ABG Base Excess 13.0 H ABG Hemoglobin 13.4 L ABG Oxyhemoglobin ABG Sodium ABG Potassium ABG Chloride ABG Glucose Oxyhemoglobin Sodium Potassium Chloride Carbon Dioxide BUN Creatinine Glucose POC Glucose 137 H 211 H Lactic Acid Calcium Magnesium Ferritin Total Bilirubin Direct Bilirubin AST ALT Alkaline Phosphatase Lactate Dehydrogenase C-Reactive Protein Total Protein Albumin Triglycerides Arterial Blood Glucose Arterial Blood Ionized Calcium Urine WBC (Auto) Coronavirus (PCR) SARS-CoV-2 IgG Ab Crossmatch 06/05/20 06/05/20 06/06/20 17:03 23:49 04:42 WBC RBC Hgb Hct MCV MCH MCHC RDW Lymph % (Auto) Lymph # (Auto) Seg Neutrophils % Seg Neuts % (Manual) Lymphocytes % (Manual) Nucleated RBC % Seg Neutrophils # Seg Neutrophils # Man Lymphocytes # (Manual) Monocytes # (Manual) PT INR APTT D-Dimer ABG pH POC ABG pCO2 56.1 H POC ABG pO2 52.5 L ABG pO2 ABG HCO3 ABG O2 Saturation ABG Base Excess ABG Hemoglobin 11.7 L ABG Oxyhemoglobin ABG Sodium ABG Potassium 3.3 L ABG Chloride 95.0 L ABG Glucose 156 H Oxyhemoglobin Sodium Potassium Chloride Carbon Dioxide BUN Creatinine Glucose POC Glucose 159 H 194 H Lactic Acid Calcium Magnesium Ferritin Total Bilirubin Direct Bilirubin AST ALT Alkaline Phosphatase Lactate Dehydrogenase C-Reactive Protein Total Protein Albumin Triglycerides Arterial Blood Glucose 156 H Arterial Blood Ionized Calcium Urine WBC (Auto) Coronavirus (PCR) SARS-CoV-2 IgG Ab Crossmatch 06/06/20 06/06/20 06/06/20 05:57 12:06 17:38 WBC RBC Hgb Hct MCV MCH MCHC RDW Lymph % (Auto) Lymph # (Auto) Seg Neutrophils % Seg Neuts % (Manual) Lymphocytes % (Manual) Nucleated RBC % Seg Neutrophils # Seg Neutrophils # Man Lymphocytes # (Manual) Monocytes # (Manual) PT INR APTT D-Dimer ABG pH POC ABG pCO2 POC ABG pO2 ABG pO2 ABG HCO3 ABG O2 Saturation ABG Base Excess ABG Hemoglobin ABG Oxyhemoglobin ABG Sodium ABG Potassium ABG Chloride ABG Glucose Oxyhemoglobin Sodium Potassium Chloride Carbon Dioxide BUN Creatinine Glucose POC Glucose 144 H 230 H 162 H Lactic Acid Calcium Magnesium Ferritin Total Bilirubin Direct Bilirubin AST ALT Alkaline Phosphatase Lactate Dehydrogenase C-Reactive Protein Total Protein Albumin Triglycerides Arterial Blood Glucose Arterial Blood Ionized Calcium Urine WBC (Auto) Coronavirus (PCR) SARS-CoV-2 IgG Ab Crossmatch 06/06/20 06/07/20 06/07/20 23:50 04:34 06:03 WBC RBC Hgb Hct MCV MCH MCHC RDW Lymph % (Auto) Lymph # (Auto) Seg Neutrophils % Seg Neuts % (Manual) Lymphocytes % (Manual) Nucleated RBC % Seg Neutrophils # Seg Neutrophils # Man Lymphocytes # (Manual) Monocytes # (Manual) PT INR APTT D-Dimer ABG pH 7.511 H POC ABG pCO2 53.5 H POC ABG pO2 114.5 H ABG pO2 ABG HCO3 ABG O2 Saturation ABG Base Excess ABG Hemoglobin 9.4 L ABG Oxyhemoglobin ABG Sodium 134.5 L ABG Potassium ABG Chloride 94.0 L ABG Glucose 186 H Oxyhemoglobin Sodium Potassium Chloride Carbon Dioxide BUN Creatinine Glucose POC Glucose 181 H 155 H Lactic Acid Calcium Magnesium Ferritin Total Bilirubin Direct Bilirubin AST ALT Alkaline Phosphatase Lactate Dehydrogenase C-Reactive Protein Total Protein Albumin Triglycerides Arterial Blood Glucose 186 H Arterial Blood Ionized Calcium 4.5 L Urine WBC (Auto) Coronavirus (PCR) SARS-CoV-2 IgG Ab Crossmatch 06/07/20 06/07/20 06/07/20 13:41 14:58 14:58 WBC RBC 2.72 L Hgb 9.3 L Hct 27.2 L MCV 100 H MCH 34 H MCHC RDW Lymph % (Auto) Lymph # (Auto) Seg Neutrophils % Seg Neuts % (Manual) Lymphocytes % (Manual) Nucleated RBC % Seg Neutrophils # Seg Neutrophils # Man Lymphocytes # (Manual) Monocytes # (Manual) PT INR APTT D-Dimer ABG pH POC ABG pCO2 POC ABG pO2 ABG pO2 ABG HCO3 ABG O2 Saturation ABG Base Excess ABG Hemoglobin ABG Oxyhemoglobin ABG Sodium ABG Potassium ABG Chloride ABG Glucose Oxyhemoglobin Sodium Potassium Chloride 93.5 L Carbon Dioxide 39 H BUN 22 H Creatinine 0.4 L Glucose 188 H POC Glucose 201 H Lactic Acid Calcium Magnesium Ferritin Total Bilirubin Direct Bilirubin AST 61 H ALT 273 H Alkaline Phosphatase Lactate Dehydrogenase C-Reactive Protein Total Protein 5.9 L Albumin 2.7 L Triglycerides Arterial Blood Glucose Arterial Blood Ionized Calcium Urine WBC (Auto) Coronavirus (PCR) SARS-CoV-2 IgG Ab Crossmatch 06/07/20 06/08/20 06/08/20 23:18 05:31 12:07 WBC RBC Hgb Hct MCV MCH MCHC RDW Lymph % (Auto) Lymph # (Auto) Seg Neutrophils % Seg Neuts % (Manual) Lymphocytes % (Manual) Nucleated RBC % Seg Neutrophils # Seg Neutrophils # Man Lymphocytes # (Manual) Monocytes # (Manual) PT INR APTT D-Dimer ABG pH POC ABG pCO2 POC ABG pO2 ABG pO2 ABG HCO3 ABG O2 Saturation ABG Base Excess ABG Hemoglobin ABG Oxyhemoglobin ABG Sodium ABG Potassium ABG Chloride ABG Glucose Oxyhemoglobin Sodium Potassium Chloride Carbon Dioxide BUN Creatinine Glucose POC Glucose 214 H 129 H 179 H Lactic Acid Calcium Magnesium Ferritin Total Bilirubin Direct Bilirubin AST ALT Alkaline Phosphatase Lactate Dehydrogenase C-Reactive Protein Total Protein Albumin Triglycerides Arterial Blood Glucose Arterial Blood Ionized Calcium Urine WBC (Auto) Coronavirus (PCR) SARS-CoV-2 IgG Ab Crossmatch 06/08/20 06/08/20 06/09/20 18:18 23:35 05:42 WBC RBC Hgb Hct MCV MCH MCHC RDW Lymph % (Auto) Lymph # (Auto) Seg Neutrophils % Seg Neuts % (Manual) Lymphocytes % (Manual) Nucleated RBC % Seg Neutrophils # Seg Neutrophils # Man Lymphocytes # (Manual) Monocytes # (Manual) PT INR APTT D-Dimer ABG pH POC ABG pCO2 POC ABG pO2 ABG pO2 ABG HCO3 ABG O2 Saturation ABG Base Excess ABG Hemoglobin ABG Oxyhemoglobin ABG Sodium ABG Potassium ABG Chloride ABG Glucose Oxyhemoglobin Sodium Potassium Chloride Carbon Dioxide BUN Creatinine Glucose POC Glucose 172 H 177 H 137 H Lactic Acid Calcium Magnesium Ferritin Total Bilirubin Direct Bilirubin AST ALT Alkaline Phosphatase Lactate Dehydrogenase C-Reactive Protein Total Protein Albumin Triglycerides Arterial Blood Glucose Arterial Blood Ionized Calcium Urine WBC (Auto) Coronavirus (PCR) SARS-CoV-2 IgG Ab Crossmatch 06/09/20 06/09/20 06/09/20 06:20 07:55 07:55 WBC 12.4 H RBC 3.26 L Hgb 11.1 L Hct 33.4 L D MCV 102 H MCH 34 H MCHC RDW Lymph % (Auto) Lymph # (Auto) Seg Neutrophils % Seg Neuts % (Manual) Lymphocytes % (Manual) Nucleated RBC % Seg Neutrophils # Seg Neutrophils # Man Lymphocytes # (Manual) Monocytes # (Manual) PT INR APTT D-Dimer ABG pH 7.466 H POC ABG pCO2 50.7 H POC ABG pO2 53.0 L ABG pO2 ABG HCO3 ABG O2 Saturation ABG Base Excess ABG Hemoglobin ABG Oxyhemoglobin ABG Sodium ABG Potassium 2.9 L ABG Chloride 93.0 L ABG Glucose 138 H Oxyhemoglobin Sodium Potassium 3.0 L Chloride 92.3 L Carbon Dioxide 37 H BUN 21 H Creatinine 0.6 L Glucose 120 H POC Glucose Lactic Acid Calcium Magnesium Ferritin Total Bilirubin Direct Bilirubin AST ALT Alkaline Phosphatase Lactate Dehydrogenase C-Reactive Protein Total Protein Albumin Triglycerides Arterial Blood Glucose 138 H Arterial Blood Ionized Calcium 4.5 L Urine WBC (Auto) Coronavirus (PCR) SARS-CoV-2 IgG Ab Crossmatch 06/09/20 06/09/20 06/10/20 11:22 18:32 04:46 WBC RBC Hgb Hct MCV MCH MCHC RDW Lymph % (Auto) Lymph # (Auto) Seg Neutrophils % Seg Neuts % (Manual) Lymphocytes % (Manual) Nucleated RBC % Seg Neutrophils # Seg Neutrophils # Man Lymphocytes # (Manual) Monocytes # (Manual) PT INR APTT D-Dimer ABG pH 7.501 H POC ABG pCO2 POC ABG pO2 126.5 H ABG pO2 ABG HCO3 ABG O2 Saturation ABG Base Excess ABG Hemoglobin 10.3 L ABG Oxyhemoglobin ABG Sodium ABG Potassium ABG Chloride ABG Glucose 220 H Oxyhemoglobin Sodium Potassium Chloride Carbon Dioxide BUN Creatinine Glucose POC Glucose 117 H 121 H Lactic Acid Calcium Magnesium Ferritin Total Bilirubin Direct Bilirubin AST ALT Alkaline Phosphatase Lactate Dehydrogenase C-Reactive Protein Total Protein Albumin Triglycerides Arterial Blood Glucose 220 H Arterial Blood Ionized Calcium Urine WBC (Auto) Coronavirus (PCR) SARS-CoV-2 IgG Ab Crossmatch 06/10/20 06/10/20 06/10/20 05:30 09:38 12:03 WBC RBC Hgb Hct MCV MCH MCHC RDW Lymph % (Auto) Lymph # (Auto) Seg Neutrophils % Seg Neuts % (Manual) Lymphocytes % (Manual) Nucleated RBC % Seg Neutrophils # Seg Neutrophils # Man Lymphocytes # (Manual) Monocytes # (Manual) PT INR APTT D-Dimer ABG pH POC ABG pCO2 POC ABG pO2 ABG pO2 ABG HCO3 ABG O2 Saturation ABG Base Excess ABG Hemoglobin ABG Oxyhemoglobin ABG Sodium ABG Potassium ABG Chloride ABG Glucose Oxyhemoglobin Sodium Potassium Chloride Carbon Dioxide BUN Creatinine Glucose POC Glucose 181 H 204 H Lactic Acid Calcium Magnesium Ferritin Total Bilirubin Direct Bilirubin AST ALT Alkaline Phosphatase Lactate Dehydrogenase C-Reactive Protein Total Protein Albumin Triglycerides 738 H Arterial Blood Glucose Arterial Blood Ionized Calcium Urine WBC (Auto) Coronavirus (PCR) SARS-CoV-2 IgG Ab Crossmatch 06/10/20 06/11/20 06/11/20 17:17 00:04 04:38 WBC RBC Hgb Hct MCV MCH MCHC RDW Lymph % (Auto) Lymph # (Auto) Seg Neutrophils % Seg Neuts % (Manual) Lymphocytes % (Manual) Nucleated RBC % Seg Neutrophils # Seg Neutrophils # Man Lymphocytes # (Manual) Monocytes # (Manual) PT INR APTT D-Dimer ABG pH 7.479 H POC ABG pCO2 POC ABG pO2 76.7 L ABG pO2 ABG HCO3 ABG O2 Saturation ABG Base Excess ABG Hemoglobin 9.8 L ABG Oxyhemoglobin ABG Sodium 135.8 L ABG Potassium ABG Chloride ABG Glucose 238 H Oxyhemoglobin Sodium Potassium Chloride Carbon Dioxide BUN Creatinine Glucose POC Glucose 156 H 178 H Lactic Acid Calcium Magnesium Ferritin Total Bilirubin Direct Bilirubin AST ALT Alkaline Phosphatase Lactate Dehydrogenase C-Reactive Protein Total Protein Albumin Triglycerides Arterial Blood Glucose 238 H Arterial Blood Ionized Calcium Urine WBC (Auto) Coronavirus (PCR) SARS-CoV-2 IgG Ab Crossmatch 06/11/20 06/11/20 06/11/20 05:21 06:52 11:50 WBC RBC Hgb Hct MCV MCH MCHC RDW Lymph % (Auto) Lymph # (Auto) Seg Neutrophils % Seg Neuts % (Manual) Lymphocytes % (Manual) Nucleated RBC % Seg Neutrophils # Seg Neutrophils # Man Lymphocytes # (Manual) Monocytes # (Manual) PT INR APTT D-Dimer ABG pH POC ABG pCO2 POC ABG pO2 ABG pO2 ABG HCO3 ABG O2 Saturation ABG Base Excess ABG Hemoglobin ABG Oxyhemoglobin ABG Sodium ABG Potassium ABG Chloride ABG Glucose Oxyhemoglobin Sodium Potassium Chloride Carbon Dioxide BUN Creatinine Glucose POC Glucose 215 H 187 H Lactic Acid Calcium Magnesium Ferritin Total Bilirubin Direct Bilirubin AST ALT Alkaline Phosphatase Lactate Dehydrogenase C-Reactive Protein Total Protein Albumin Triglycerides 331 H Arterial Blood Glucose Arterial Blood Ionized Calcium Urine WBC (Auto) Coronavirus (PCR) SARS-CoV-2 IgG Ab Crossmatch 06/11/20 06/11/20 06/12/20 17:49 23:35 04:52 WBC RBC Hgb Hct MCV MCH MCHC RDW Lymph % (Auto) Lymph # (Auto) Seg Neutrophils % Seg Neuts % (Manual) Lymphocytes % (Manual) Nucleated RBC % Seg Neutrophils # Seg Neutrophils # Man Lymphocytes # (Manual) Monocytes # (Manual) PT INR APTT D-Dimer ABG pH 7.486 H POC ABG pCO2 POC ABG pO2 ABG pO2 ABG HCO3 ABG O2 Saturation ABG Base Excess ABG Hemoglobin 9.4 L ABG Oxyhemoglobin ABG Sodium ABG Potassium 3.2 L ABG Chloride ABG Glucose 209 H Oxyhemoglobin Sodium Potassium Chloride Carbon Dioxide BUN Creatinine Glucose POC Glucose 211 H 200 H Lactic Acid Calcium Magnesium Ferritin Total Bilirubin Direct Bilirubin AST ALT Alkaline Phosphatase Lactate Dehydrogenase C-Reactive Protein Total Protein Albumin Triglycerides Arterial Blood Glucose 209 H Arterial Blood Ionized Calcium Urine WBC (Auto) Coronavirus (PCR) SARS-CoV-2 IgG Ab Crossmatch 06/12/20 06/12/20 06/12/20 05:13 11:47 18:33 WBC RBC Hgb Hct MCV MCH MCHC RDW Lymph % (Auto) Lymph # (Auto) Seg Neutrophils % Seg Neuts % (Manual) Lymphocytes % (Manual) Nucleated RBC % Seg Neutrophils # Seg Neutrophils # Man Lymphocytes # (Manual) Monocytes # (Manual) PT INR APTT D-Dimer ABG pH POC ABG pCO2 POC ABG pO2 ABG pO2 ABG HCO3 ABG O2 Saturation ABG Base Excess ABG Hemoglobin ABG Oxyhemoglobin ABG Sodium ABG Potassium ABG Chloride ABG Glucose Oxyhemoglobin Sodium Potassium Chloride Carbon Dioxide BUN Creatinine Glucose POC Glucose 174 H 214 H 194 H Lactic Acid Calcium Magnesium Ferritin Total Bilirubin Direct Bilirubin AST ALT Alkaline Phosphatase Lactate Dehydrogenase C-Reactive Protein Total Protein Albumin Triglycerides Arterial Blood Glucose Arterial Blood Ionized Calcium Urine WBC (Auto) Coronavirus (PCR) SARS-CoV-2 IgG Ab Crossmatch 06/12/20 06/13/20 06/13/20 23:49 05:41 12:30 WBC RBC Hgb Hct MCV MCH MCHC RDW Lymph % (Auto) Lymph # (Auto) Seg Neutrophils % Seg Neuts % (Manual) Lymphocytes % (Manual) Nucleated RBC % Seg Neutrophils # Seg Neutrophils # Man Lymphocytes # (Manual) Monocytes # (Manual) PT INR APTT D-Dimer ABG pH POC ABG pCO2 POC ABG pO2 ABG pO2 ABG HCO3 ABG O2 Saturation ABG Base Excess ABG Hemoglobin ABG Oxyhemoglobin ABG Sodium ABG Potassium ABG Chloride ABG Glucose Oxyhemoglobin Sodium Potassium Chloride Carbon Dioxide BUN Creatinine Glucose POC Glucose 160 H 150 H 181 H Lactic Acid Calcium Magnesium Ferritin Total Bilirubin Direct Bilirubin AST ALT Alkaline Phosphatase Lactate Dehydrogenase C-Reactive Protein Total Protein Albumin Triglycerides Arterial Blood Glucose Arterial Blood Ionized Calcium Urine WBC (Auto) Coronavirus (PCR) SARS-CoV-2 IgG Ab Crossmatch 06/13/20 06/13/20 06/13/20 14:14 17:48 23:27 WBC 12.8 H RBC 2.33 L Hgb 8.0 L Hct 23.3 L MCV 100 H MCH 34 H MCHC RDW 15.7 H Lymph % (Auto) Lymph # (Auto) Seg Neutrophils % Seg Neuts % (Manual) 85.0 H Lymphocytes % (Manual) 10.0 L Nucleated RBC % Seg Neutrophils # Seg Neutrophils # Man 10.9 H Lymphocytes # (Manual) Monocytes # (Manual) PT INR APTT D-Dimer ABG pH POC ABG pCO2 POC ABG pO2 ABG pO2 ABG HCO3 ABG O2 Saturation ABG Base Excess ABG Hemoglobin ABG Oxyhemoglobin ABG Sodium ABG Potassium ABG Chloride ABG Glucose Oxyhemoglobin Sodium Potassium Chloride Carbon Dioxide BUN Creatinine Glucose POC Glucose 173 H 154 H Lactic Acid Calcium Magnesium Ferritin Total Bilirubin Direct Bilirubin AST ALT Alkaline Phosphatase Lactate Dehydrogenase C-Reactive Protein Total Protein Albumin Triglycerides Arterial Blood Glucose Arterial Blood Ionized Calcium Urine WBC (Auto) Coronavirus (PCR) SARS-CoV-2 IgG Ab Crossmatch 06/14/20 06/14/20 06/14/20 03:58 05:21 07:15 WBC 26.2 H RBC 2.97 L Hgb 9.7 L Hct 29.9 L D MCV 101 H MCH 33 H MCHC RDW 15.3 H Lymph % (Auto) Lymph # (Auto) Seg Neutrophils % Seg Neuts % (Manual) 79.0 H Lymphocytes % (Manual) 5.0 L Nucleated RBC % 3.0 H Seg Neutrophils # Seg Neutrophils # Man 20.7 H Lymphocytes # (Manual) Monocytes # (Manual) 1.3 H PT INR APTT D-Dimer ABG pH POC ABG pCO2 51.5 H POC ABG pO2 70.0 L ABG pO2 ABG HCO3 ABG O2 Saturation ABG Base Excess ABG Hemoglobin 10.1 L ABG Oxyhemoglobin ABG Sodium 131.5 L ABG Potassium 3.1 L ABG Chloride 93.0 L ABG Glucose 188 H Oxyhemoglobin Sodium Potassium Chloride Carbon Dioxide BUN Creatinine Glucose POC Glucose 147 H Lactic Acid Calcium Magnesium Ferritin Total Bilirubin Direct Bilirubin AST ALT Alkaline Phosphatase Lactate Dehydrogenase C-Reactive Protein Total Protein Albumin Triglycerides Arterial Blood Glucose 188 H Arterial Blood Ionized Calcium Urine WBC (Auto) Coronavirus (PCR) SARS-CoV-2 IgG Ab Crossmatch 06/14/20 06/14/20 06/14/20 07:15 11:30 11:50 WBC RBC Hgb Hct MCV MCH MCHC RDW Lymph % (Auto) Lymph # (Auto) Seg Neutrophils % Seg Neuts % (Manual) Lymphocytes % (Manual) Nucleated RBC % Seg Neutrophils # Seg Neutrophils # Man Lymphocytes # (Manual) Monocytes # (Manual) PT INR APTT D-Dimer ABG pH POC ABG pCO2 POC ABG pO2 ABG pO2 ABG HCO3 ABG O2 Saturation ABG Base Excess ABG Hemoglobin ABG Oxyhemoglobin ABG Sodium ABG Potassium ABG Chloride ABG Glucose Oxyhemoglobin Sodium 135 L Potassium 3.5 L Chloride 90.4 L Carbon Dioxide 38 H BUN Creatinine 0.5 L Glucose 190 H POC Glucose 176 H Lactic Acid Calcium Magnesium Ferritin 1496.0 H Total Bilirubin Direct Bilirubin AST ALT 81 H Alkaline Phosphatase Lactate Dehydrogenase C-Reactive Protein Total Protein Albumin 2.9 L Triglycerides Arterial Blood Glucose Arterial Blood Ionized Calcium Urine WBC (Auto) Coronavirus (PCR) SARS-CoV-2 IgG Ab Crossmatch 06/14/20 06/15/20 06/15/20 23:31 04:00 05:00 WBC RBC Hgb Hct MCV MCH MCHC RDW Lymph % (Auto) Lymph # (Auto) Seg Neutrophils % Seg Neuts % (Manual) Lymphocytes % (Manual) Nucleated RBC % Seg Neutrophils # Seg Neutrophils # Man Lymphocytes # (Manual) Monocytes # (Manual) PT INR APTT D-Dimer ABG pH POC ABG pCO2 POC ABG pO2 ABG pO2 ABG HCO3 ABG O2 Saturation ABG Base Excess ABG Hemoglobin ABG Oxyhemoglobin ABG Sodium ABG Potassium ABG Chloride ABG Glucose Oxyhemoglobin Sodium 133 L Potassium Chloride 91.1 L Carbon Dioxide 34 H BUN Creatinine 0.4 L Glucose 159 H POC Glucose 200 H Lactic Acid Calcium Magnesium Ferritin Total Bilirubin 2.00 H Direct Bilirubin AST 47 H ALT 77 H Alkaline Phosphatase Lactate Dehydrogenase C-Reactive Protein Total Protein Albumin 2.6 L Triglycerides 152 H Arterial Blood Glucose Arterial Blood Ionized Calcium Urine WBC (Auto) Coronavirus (PCR) SARS-CoV-2 IgG Ab Crossmatch 06/15/20 06/15/20 06/15/20 05:35 06:27 11:38 WBC RBC Hgb Hct MCV MCH MCHC RDW Lymph % (Auto) Lymph # (Auto) Seg Neutrophils % Seg Neuts % (Manual) Lymphocytes % (Manual) Nucleated RBC % Seg Neutrophils # Seg Neutrophils # Man Lymphocytes # (Manual) Monocytes # (Manual) PT INR APTT D-Dimer ABG pH POC ABG pCO2 61.0 H POC ABG pO2 67.9 L ABG pO2 ABG HCO3 ABG O2 Saturation ABG Base Excess ABG Hemoglobin 10.4 L ABG Oxyhemoglobin ABG Sodium 132.7 L ABG Potassium 3.3 L ABG Chloride 92.0 L ABG Glucose 158 H Oxyhemoglobin Sodium Potassium Chloride Carbon Dioxide BUN Creatinine Glucose POC Glucose 148 H 197 H Lactic Acid Calcium Magnesium Ferritin Total Bilirubin Direct Bilirubin AST ALT Alkaline Phosphatase Lactate Dehydrogenase C-Reactive Protein Total Protein Albumin Triglycerides Arterial Blood Glucose 158 H Arterial Blood Ionized Calcium Urine WBC (Auto) Coronavirus (PCR) SARS-CoV-2 IgG Ab Crossmatch 06/15/20 06/15/20 06/16/20 17:29 Unknown 00:01 WBC 20.7 H RBC 2.57 L Hgb 8.9 L Hct 25.8 L MCV 101 H MCH 35 H MCHC 35 H RDW 16.0 H Lymph % (Auto) Lymph # (Auto) Seg Neutrophils % Seg Neuts % (Manual) 83.0 H Lymphocytes % (Manual) 8.0 L Nucleated RBC % Seg Neutrophils # Seg Neutrophils # Man 17.2 H Lymphocytes # (Manual) Monocytes # (Manual) 1.2 H PT INR APTT D-Dimer ABG pH POC ABG pCO2 POC ABG pO2 ABG pO2 ABG HCO3 ABG O2 Saturation ABG Base Excess ABG Hemoglobin ABG Oxyhemoglobin ABG Sodium ABG Potassium ABG Chloride ABG Glucose Oxyhemoglobin Sodium Potassium Chloride Carbon Dioxide BUN Creatinine Glucose POC Glucose 231 H 257 H Lactic Acid Calcium Magnesium Ferritin Total Bilirubin Direct Bilirubin AST ALT Alkaline Phosphatase Lactate Dehydrogenase C-Reactive Protein Total Protein Albumin Triglycerides Arterial Blood Glucose Arterial Blood Ionized Calcium Urine WBC (Auto) Coronavirus (PCR) SARS-CoV-2 IgG Ab Crossmatch 06/16/20 06/16/20 06/16/20 04:00 04:00 05:22 WBC 13.8 H RBC 2.03 L Hgb 7.6 L Hct 20.7 L MCV 102 H MCH 37 H MCHC 37 H RDW 16.2 H Lymph % (Auto) 4.4 L Lymph # (Auto) 0.6 L Seg Neutrophils % Seg Neuts % (Manual) Lymphocytes % (Manual) Nucleated RBC % Seg Neutrophils # 12.7 H Seg Neutrophils # Man Lymphocytes # (Manual) Monocytes # (Manual) PT INR APTT D-Dimer ABG pH POC ABG pCO2 POC ABG pO2 ABG pO2 ABG HCO3 ABG O2 Saturation ABG Base Excess ABG Hemoglobin ABG Oxyhemoglobin ABG Sodium ABG Potassium ABG Chloride ABG Glucose Oxyhemoglobin Sodium 130 L Potassium Chloride 88.9 L Carbon Dioxide 36 H BUN Creatinine 0.3 L Glucose 276 H POC Glucose 250 H Lactic Acid Calcium Magnesium Ferritin Total Bilirubin Direct Bilirubin AST ALT Alkaline Phosphatase Lactate Dehydrogenase C-Reactive Protein Total Protein Albumin Triglycerides Arterial Blood Glucose Arterial Blood Ionized Calcium Urine WBC (Auto) Coronavirus (PCR) SARS-CoV-2 IgG Ab Crossmatch 06/16/20 06/16/20 06/17/20 12:44 18:18 00:39 WBC RBC Hgb Hct MCV MCH MCHC RDW Lymph % (Auto) Lymph # (Auto) Seg Neutrophils % Seg Neuts % (Manual) Lymphocytes % (Manual) Nucleated RBC % Seg Neutrophils # Seg Neutrophils # Man Lymphocytes # (Manual) Monocytes # (Manual) PT INR APTT D-Dimer ABG pH POC ABG pCO2 POC ABG pO2 ABG pO2 ABG HCO3 ABG O2 Saturation ABG Base Excess ABG Hemoglobin ABG Oxyhemoglobin ABG Sodium ABG Potassium ABG Chloride ABG Glucose Oxyhemoglobin Sodium Potassium Chloride Carbon Dioxide BUN Creatinine Glucose POC Glucose 279 H 239 H 247 H Lactic Acid Calcium Magnesium Ferritin Total Bilirubin Direct Bilirubin AST ALT Alkaline Phosphatase Lactate Dehydrogenase C-Reactive Protein Total Protein Albumin Triglycerides Arterial Blood Glucose Arterial Blood Ionized Calcium Urine WBC (Auto) Coronavirus (PCR) SARS-CoV-2 IgG Ab Crossmatch 06/17/20 06/17/20 06/17/20 03:40 04:08 10:54 WBC RBC Hgb Hct MCV MCH MCHC RDW Lymph % (Auto) Lymph # (Auto) Seg Neutrophils % Seg Neuts % (Manual) Lymphocytes % (Manual) Nucleated RBC % Seg Neutrophils # Seg Neutrophils # Man Lymphocytes # (Manual) Monocytes # (Manual) PT INR APTT D-Dimer ABG pH POC ABG pCO2 65.7 H POC ABG pO2 ABG pO2 ABG HCO3 ABG O2 Saturation ABG Base Excess ABG Hemoglobin 11.9 L ABG Oxyhemoglobin ABG Sodium ABG Potassium ABG Chloride 93.0 L ABG Glucose 244 H Oxyhemoglobin Sodium Potassium Chloride Carbon Dioxide BUN Creatinine Glucose POC Glucose 221 H 248 H Lactic Acid Calcium Magnesium Ferritin Total Bilirubin Direct Bilirubin AST ALT Alkaline Phosphatase Lactate Dehydrogenase C-Reactive Protein Total Protein Albumin Triglycerides Arterial Blood Glucose 244 H Arterial Blood Ionized Calcium Urine WBC (Auto) Coronavirus (PCR) SARS-CoV-2 IgG Ab Crossmatch 06/17/20 06/17/20 06/17/20 17:47 23:11 23:29 WBC RBC Hgb Hct MCV MCH MCHC RDW Lymph % (Auto) Lymph # (Auto) Seg Neutrophils % Seg Neuts % (Manual) Lymphocytes % (Manual) Nucleated RBC % Seg Neutrophils # Seg Neutrophils # Man Lymphocytes # (Manual) Monocytes # (Manual) PT INR APTT D-Dimer ABG pH POC ABG pCO2 85.2 H POC ABG pO2 48.4 L ABG pO2 ABG HCO3 ABG O2 Saturation ABG Base Excess ABG Hemoglobin 8.0 L ABG Oxyhemoglobin ABG Sodium ABG Potassium ABG Chloride 95.0 L ABG Glucose 292 H Oxyhemoglobin Sodium Potassium Chloride Carbon Dioxide BUN Creatinine Glucose POC Glucose 245 H 252 H Lactic Acid Calcium Magnesium Ferritin Total Bilirubin Direct Bilirubin AST ALT Alkaline Phosphatase Lactate Dehydrogenase C-Reactive Protein Total Protein Albumin Triglycerides Arterial Blood Glucose 292 H Arterial Blood Ionized Calcium Urine WBC (Auto) Coronavirus (PCR) SARS-CoV-2 IgG Ab Crossmatch 06/18/20 06/18/20 06/18/20 03:14 05:34 11:47 WBC RBC Hgb Hct MCV MCH MCHC RDW Lymph % (Auto) Lymph # (Auto) Seg Neutrophils % Seg Neuts % (Manual) Lymphocytes % (Manual) Nucleated RBC % Seg Neutrophils # Seg Neutrophils # Man Lymphocytes # (Manual) Monocytes # (Manual) PT INR APTT D-Dimer ABG pH POC ABG pCO2 65.4 H POC ABG pO2 160.7 H ABG pO2 ABG HCO3 ABG O2 Saturation ABG Base Excess ABG Hemoglobin 7.8 L ABG Oxyhemoglobin ABG Sodium ABG Potassium ABG Chloride 95.0 L ABG Glucose 251 H Oxyhemoglobin Sodium Potassium Chloride Carbon Dioxide BUN Creatinine Glucose POC Glucose 243 H 263 H Lactic Acid Calcium Magnesium Ferritin Total Bilirubin Direct Bilirubin AST ALT Alkaline Phosphatase Lactate Dehydrogenase C-Reactive Protein Total Protein Albumin Triglycerides Arterial Blood Glucose 251 H Arterial Blood Ionized Calcium Urine WBC (Auto) Coronavirus (PCR) SARS-CoV-2 IgG Ab Crossmatch 06/18/20 06/18/20 06/19/20 17:31 23:33 04:32 WBC RBC Hgb Hct MCV MCH MCHC RDW Lymph % (Auto) Lymph # (Auto) Seg Neutrophils % Seg Neuts % (Manual) Lymphocytes % (Manual) Nucleated RBC % Seg Neutrophils # Seg Neutrophils # Man Lymphocytes # (Manual) Monocytes # (Manual) PT INR APTT D-Dimer ABG pH POC ABG pCO2 83.1 H POC ABG pO2 65.8 L ABG pO2 ABG HCO3 ABG O2 Saturation ABG Base Excess ABG Hemoglobin 8.9 L ABG Oxyhemoglobin ABG Sodium ABG Potassium ABG Chloride 96.0 L ABG Glucose 297 H Oxyhemoglobin Sodium Potassium Chloride Carbon Dioxide BUN Creatinine Glucose POC Glucose 286 H 238 H Lactic Acid Calcium Magnesium Ferritin Total Bilirubin Direct Bilirubin AST ALT Alkaline Phosphatase Lactate Dehydrogenase C-Reactive Protein Total Protein Albumin Triglycerides Arterial Blood Glucose 297 H Arterial Blood Ionized Calcium Urine WBC (Auto) Coronavirus (PCR) SARS-CoV-2 IgG Ab Crossmatch 06/19/20 06/19/20 06/19/20 05:55 11:20 17:12 WBC RBC Hgb Hct MCV MCH MCHC RDW Lymph % (Auto) Lymph # (Auto) Seg Neutrophils % Seg Neuts % (Manual) Lymphocytes % (Manual) Nucleated RBC % Seg Neutrophils # Seg Neutrophils # Man Lymphocytes # (Manual) Monocytes # (Manual) PT INR APTT D-Dimer ABG pH POC ABG pCO2 POC ABG pO2 ABG pO2 ABG HCO3 ABG O2 Saturation ABG Base Excess ABG Hemoglobin ABG Oxyhemoglobin ABG Sodium ABG Potassium ABG Chloride ABG Glucose Oxyhemoglobin Sodium Potassium Chloride Carbon Dioxide BUN Creatinine Glucose POC Glucose 274 H 282 H 298 H Lactic Acid Calcium Magnesium Ferritin Total Bilirubin Direct Bilirubin AST ALT Alkaline Phosphatase Lactate Dehydrogenase C-Reactive Protein Total Protein Albumin Triglycerides Arterial Blood Glucose Arterial Blood Ionized Calcium Urine WBC (Auto) Coronavirus (PCR) SARS-CoV-2 IgG Ab Crossmatch 06/19/20 06/20/20 06/20/20 23:08 03:33 06:01 WBC RBC Hgb Hct MCV MCH MCHC RDW Lymph % (Auto) Lymph # (Auto) Seg Neutrophils % Seg Neuts % (Manual) Lymphocytes % (Manual) Nucleated RBC % Seg Neutrophils # Seg Neutrophils # Man Lymphocytes # (Manual) Monocytes # (Manual) PT INR APTT D-Dimer ABG pH POC ABG pCO2 POC ABG pO2 ABG pO2 69.9 L ABG HCO3 50.8 H ABG O2 Saturation ABG Base Excess 24.2 H ABG Hemoglobin 5.8 L ABG Oxyhemoglobin ABG Sodium ABG Potassium ABG Chloride ABG Glucose Oxyhemoglobin Sodium Potassium Chloride Carbon Dioxide BUN Creatinine Glucose POC Glucose 293 H 182 H Lactic Acid Calcium Magnesium Ferritin Total Bilirubin Direct Bilirubin AST ALT Alkaline Phosphatase Lactate Dehydrogenase C-Reactive Protein Total Protein Albumin Triglycerides Arterial Blood Glucose Arterial Blood Ionized Calcium Urine WBC (Auto) Coronavirus (PCR) SARS-CoV-2 IgG Ab Crossmatch 06/20/20 06/20/20 06/20/20 11:47 17:46 23:37 WBC RBC Hgb Hct MCV MCH MCHC RDW Lymph % (Auto) Lymph # (Auto) Seg Neutrophils % Seg Neuts % (Manual) Lymphocytes % (Manual) Nucleated RBC % Seg Neutrophils # Seg Neutrophils # Man Lymphocytes # (Manual) Monocytes # (Manual) PT INR APTT D-Dimer ABG pH POC ABG pCO2 POC ABG pO2 ABG pO2 ABG HCO3 ABG O2 Saturation ABG Base Excess ABG Hemoglobin ABG Oxyhemoglobin ABG Sodium ABG Potassium ABG Chloride ABG Glucose Oxyhemoglobin Sodium Potassium Chloride Carbon Dioxide BUN Creatinine Glucose POC Glucose 170 H 215 H 256 H Lactic Acid Calcium Magnesium Ferritin Total Bilirubin Direct Bilirubin AST ALT Alkaline Phosphatase Lactate Dehydrogenase C-Reactive Protein Total Protein Albumin Triglycerides Arterial Blood Glucose Arterial Blood Ionized Calcium Urine WBC (Auto) Coronavirus (PCR) SARS-CoV-2 IgG Ab Crossmatch 06/21/20 06/21/20 06/21/20 04:00 05:14 05:51 WBC RBC Hgb Hct MCV MCH MCHC RDW Lymph % (Auto) Lymph # (Auto) Seg Neutrophils % Seg Neuts % (Manual) Lymphocytes % (Manual) Nucleated RBC % Seg Neutrophils # Seg Neutrophils # Man Lymphocytes # (Manual) Monocytes # (Manual) PT INR APTT D-Dimer ABG pH 7.474 H POC ABG pCO2 POC ABG pO2 ABG pO2 ABG HCO3 52.1 H ABG O2 Saturation ABG Base Excess 23.3 H ABG Hemoglobin 5.3 L ABG Oxyhemoglobin ABG Sodium ABG Potassium ABG Chloride ABG Glucose Oxyhemoglobin 93.8 L Sodium Potassium Chloride Carbon Dioxide BUN Creatinine Glucose POC Glucose 122 H 129 H Lactic Acid Calcium Magnesium Ferritin Total Bilirubin Direct Bilirubin AST ALT Alkaline Phosphatase Lactate Dehydrogenase C-Reactive Protein Total Protein Albumin Triglycerides Arterial Blood Glucose Arterial Blood Ionized Calcium Urine WBC (Auto) Coronavirus (PCR) SARS-CoV-2 IgG Ab Crossmatch 06/21/20 06/21/20 06/21/20 11:00 11:00 11:42 WBC 14.2 H RBC 1.85 L Hgb 6.2 L Hct 19.5 L* MCV 105 H MCH 34 H MCHC RDW 18.0 H Lymph % (Auto) Lymph # (Auto) Seg Neutrophils % Seg Neuts % (Manual) Lymphocytes % (Manual) Nucleated RBC % Seg Neutrophils # Seg Neutrophils # Man Lymphocytes # (Manual) Monocytes # (Manual) PT INR APTT D-Dimer ABG pH POC ABG pCO2 POC ABG pO2 ABG pO2 ABG HCO3 ABG O2 Saturation ABG Base Excess ABG Hemoglobin ABG Oxyhemoglobin ABG Sodium ABG Potassium ABG Chloride ABG Glucose Oxyhemoglobin Sodium 147 H Potassium Chloride Carbon Dioxide 51 H* BUN 31 H Creatinine 0.5 L Glucose 224 H POC Glucose 217 H Lactic Acid Calcium Magnesium Ferritin Total Bilirubin Direct Bilirubin AST ALT Alkaline Phosphatase Lactate Dehydrogenase C-Reactive Protein Total Protein Albumin Triglycerides Arterial Blood Glucose Arterial Blood Ionized Calcium Urine WBC (Auto) Coronavirus (PCR) SARS-CoV-2 IgG Ab Crossmatch 06/21/20 06/21/20 06/21/20 14:18 14:30 18:36 WBC RBC Hgb Hct MCV MCH MCHC RDW Lymph % (Auto) Lymph # (Auto) Seg Neutrophils % Seg Neuts % (Manual) Lymphocytes % (Manual) Nucleated RBC % Seg Neutrophils # Seg Neutrophils # Man Lymphocytes # (Manual) Monocytes # (Manual) PT 15.1 H INR 1.19 H APTT D-Dimer ABG pH POC ABG pCO2 POC ABG pO2 ABG pO2 ABG HCO3 ABG O2 Saturation ABG Base Excess ABG Hemoglobin ABG Oxyhemoglobin ABG Sodium ABG Potassium ABG Chloride ABG Glucose Oxyhemoglobin Sodium Potassium Chloride Carbon Dioxide BUN Creatinine Glucose POC Glucose 185 H Lactic Acid Calcium Magnesium Ferritin Total Bilirubin Direct Bilirubin AST ALT Alkaline Phosphatase Lactate Dehydrogenase C-Reactive Protein Total Protein Albumin Triglycerides Arterial Blood Glucose Arterial Blood Ionized Calcium Urine WBC (Auto) Coronavirus (PCR) SARS-CoV-2 IgG Ab Crossmatch See Detail 06/21/20 06/22/20 06/22/20 21:14 03:50 04:00 WBC RBC Hgb Hct MCV MCH MCHC RDW Lymph % (Auto) Lymph # (Auto) Seg Neutrophils % Seg Neuts % (Manual) Lymphocytes % (Manual) Nucleated RBC % Seg Neutrophils # Seg Neutrophils # Man Lymphocytes # (Manual) Monocytes # (Manual) PT INR APTT D-Dimer ABG pH 7.451 H POC ABG pCO2 POC ABG pO2 ABG pO2 ABG HCO3 47.5 H ABG O2 Saturation ABG Base Excess 22.0 H ABG Hemoglobin < 5.1 L ABG Oxyhemoglobin ABG Sodium ABG Potassium ABG Chloride ABG Glucose Oxyhemoglobin 94.1 L Sodium 149 H Potassium 3.5 L Chloride Carbon Dioxide 42 H* D BUN 34 H Creatinine 0.4 L Glucose 219 H POC Glucose 250 H Lactic Acid Calcium Magnesium Ferritin Total Bilirubin Direct Bilirubin AST ALT Alkaline Phosphatase Lactate Dehydrogenase C-Reactive Protein Total Protein Albumin Triglycerides Arterial Blood Glucose Arterial Blood Ionized Calcium Urine WBC (Auto) Coronavirus (PCR) SARS-CoV-2 IgG Ab Crossmatch 06/22/20 06/22/20 06/22/20 12:16 14:29 17:56 WBC RBC Hgb Hct MCV MCH MCHC RDW Lymph % (Auto) Lymph # (Auto) Seg Neutrophils % Seg Neuts % (Manual) Lymphocytes % (Manual) Nucleated RBC % Seg Neutrophils # Seg Neutrophils # Man Lymphocytes # (Manual) Monocytes # (Manual) PT 11.8 L INR APTT 23.5 L D-Dimer ABG pH POC ABG pCO2 POC ABG pO2 ABG pO2 ABG HCO3 ABG O2 Saturation ABG Base Excess ABG Hemoglobin ABG Oxyhemoglobin ABG Sodium ABG Potassium ABG Chloride ABG Glucose Oxyhemoglobin Sodium Potassium Chloride Carbon Dioxide BUN Creatinine Glucose POC Glucose 215 H 215 H Lactic Acid Calcium Magnesium Ferritin Total Bilirubin Direct Bilirubin AST ALT Alkaline Phosphatase Lactate Dehydrogenase C-Reactive Protein Total Protein Albumin Triglycerides Arterial Blood Glucose Arterial Blood Ionized Calcium Urine WBC (Auto) Coronavirus (PCR) SARS-CoV-2 IgG Ab Crossmatch 06/22/20 06/22/20 06/22/20 23:36 23:45 Unknown WBC 14.1 H RBC 2.70 L Hgb 8.9 L 8.9 L Hct 26.9 L 27.2 L D MCV 101 H MCH 33 H MCHC RDW 17.7 H Lymph % (Auto) Lymph # (Auto) Seg Neutrophils % Seg Neuts % (Manual) 92.0 H Lymphocytes % (Manual) 5.0 L Nucleated RBC % Seg Neutrophils # Seg Neutrophils # Man 13.0 H Lymphocytes # (Manual) 0.7 L Monocytes # (Manual) PT INR APTT D-Dimer ABG pH POC ABG pCO2 POC ABG pO2 ABG pO2 ABG HCO3 ABG O2 Saturation ABG Base Excess ABG Hemoglobin ABG Oxyhemoglobin ABG Sodium ABG Potassium ABG Chloride ABG Glucose Oxyhemoglobin Sodium Potassium Chloride Carbon Dioxide BUN Creatinine Glucose POC Glucose 208 H Lactic Acid Calcium Magnesium Ferritin Total Bilirubin Direct Bilirubin AST ALT Alkaline Phosphatase Lactate Dehydrogenase C-Reactive Protein Total Protein Albumin Triglycerides Arterial Blood Glucose Arterial Blood Ionized Calcium Urine WBC (Auto) Coronavirus (PCR) SARS-CoV-2 IgG Ab Crossmatch 06/23/20 06/23/20 06/23/20 05:17 05:19 06:50 WBC RBC Hgb Hct MCV MCH MCHC RDW Lymph % (Auto) Lymph # (Auto) Seg Neutrophils % Seg Neuts % (Manual) Lymphocytes % (Manual) Nucleated RBC % Seg Neutrophils # Seg Neutrophils # Man Lymphocytes # (Manual) Monocytes # (Manual) PT INR APTT D-Dimer ABG pH POC ABG pCO2 69.7 H POC ABG pO2 63.3 L ABG pO2 ABG HCO3 ABG O2 Saturation ABG Base Excess ABG Hemoglobin 10.1 L ABG Oxyhemoglobin ABG Sodium ABG Potassium 3.3 L ABG Chloride ABG Glucose 226 H Oxyhemoglobin Sodium Potassium 3.0 L Chloride Carbon Dioxide 41 H* BUN 26 H Creatinine 0.4 L Glucose 209 H POC Glucose 200 H Lactic Acid Calcium Magnesium Ferritin Total Bilirubin Direct Bilirubin AST ALT Alkaline Phosphatase Lactate Dehydrogenase C-Reactive Protein Total Protein Albumin 2.9 L Triglycerides Arterial Blood Glucose 226 H Arterial Blood Ionized Calcium Urine WBC (Auto) Coronavirus (PCR) SARS-CoV-2 IgG Ab Crossmatch 06/23/20 06/23/20 06/23/20 09:41 12:04 18:16 WBC RBC Hgb 9.1 L Hct 28.0 L MCV MCH MCHC RDW Lymph % (Auto) Lymph # (Auto) Seg Neutrophils % Seg Neuts % (Manual) Lymphocytes % (Manual) Nucleated RBC % Seg Neutrophils # Seg Neutrophils # Man Lymphocytes # (Manual) Monocytes # (Manual) PT INR APTT D-Dimer ABG pH POC ABG pCO2 POC ABG pO2 ABG pO2 ABG HCO3 ABG O2 Saturation ABG Base Excess ABG Hemoglobin ABG Oxyhemoglobin ABG Sodium ABG Potassium ABG Chloride ABG Glucose Oxyhemoglobin Sodium Potassium Chloride Carbon Dioxide BUN Creatinine Glucose POC Glucose 146 H 162 H Lactic Acid Calcium Magnesium Ferritin Total Bilirubin Direct Bilirubin AST ALT Alkaline Phosphatase Lactate Dehydrogenase C-Reactive Protein Total Protein Albumin Triglycerides Arterial Blood Glucose Arterial Blood Ionized Calcium Urine WBC (Auto) Coronavirus (PCR) SARS-CoV-2 IgG Ab Crossmatch 06/23/20 06/23/20 06/24/20 23:24 23:41 02:39 WBC RBC Hgb 8.2 L 8.8 L Hct 24.9 L 26.8 L MCV MCH MCHC RDW Lymph % (Auto) Lymph # (Auto) Seg Neutrophils % Seg Neuts % (Manual) Lymphocytes % (Manual) Nucleated RBC % Seg Neutrophils # Seg Neutrophils # Man Lymphocytes # (Manual) Monocytes # (Manual) PT INR APTT D-Dimer ABG pH POC ABG pCO2 POC ABG pO2 ABG pO2 ABG HCO3 ABG O2 Saturation ABG Base Excess ABG Hemoglobin ABG Oxyhemoglobin ABG Sodium ABG Potassium ABG Chloride ABG Glucose Oxyhemoglobin Sodium Potassium Chloride Carbon Dioxide BUN Creatinine Glucose POC Glucose 248 H Lactic Acid Calcium Magnesium Ferritin Total Bilirubin Direct Bilirubin AST ALT Alkaline Phosphatase Lactate Dehydrogenase C-Reactive Protein Total Protein Albumin Triglycerides Arterial Blood Glucose Arterial Blood Ionized Calcium Urine WBC (Auto) Coronavirus (PCR) SARS-CoV-2 IgG Ab Crossmatch 06/24/20 06/24/20 06/24/20 02:39 02:45 05:31 WBC RBC Hgb Hct MCV MCH MCHC RDW Lymph % (Auto) Lymph # (Auto) Seg Neutrophils % Seg Neuts % (Manual) Lymphocytes % (Manual) Nucleated RBC % Seg Neutrophils # Seg Neutrophils # Man Lymphocytes # (Manual) Monocytes # (Manual) PT INR APTT D-Dimer ABG pH POC ABG pCO2 66.9 H POC ABG pO2 109.7 H ABG pO2 ABG HCO3 ABG O2 Saturation ABG Base Excess ABG Hemoglobin 9.7 L ABG Oxyhemoglobin ABG Sodium 135.0 L ABG Potassium ABG Chloride 97.0 L ABG Glucose 277 H Oxyhemoglobin Sodium 136 L Potassium Chloride 95.0 L Carbon Dioxide 34 H D BUN 24 H Creatinine 0.3 L Glucose 260 H POC Glucose 164 H Lactic Acid Calcium Magnesium Ferritin Total Bilirubin Direct Bilirubin AST ALT Alkaline Phosphatase Lactate Dehydrogenase C-Reactive Protein Total Protein 5.2 L Albumin 2.6 L Triglycerides Arterial Blood Glucose 277 H Arterial Blood Ionized Calcium Urine WBC (Auto) Coronavirus (PCR) SARS-CoV-2 IgG Ab Crossmatch 06/24/20 06/24/20 06/24/20 10:00 11:49 17:39 WBC RBC Hgb 8.9 L Hct 26.5 L MCV MCH MCHC RDW Lymph % (Auto) Lymph # (Auto) Seg Neutrophils % Seg Neuts % (Manual) Lymphocytes % (Manual) Nucleated RBC % Seg Neutrophils # Seg Neutrophils # Man Lymphocytes # (Manual) Monocytes # (Manual) PT INR APTT D-Dimer ABG pH POC ABG pCO2 POC ABG pO2 ABG pO2 ABG HCO3 ABG O2 Saturation ABG Base Excess ABG Hemoglobin ABG Oxyhemoglobin ABG Sodium ABG Potassium ABG Chloride ABG Glucose Oxyhemoglobin Sodium Potassium Chloride Carbon Dioxide BUN Creatinine Glucose POC Glucose 198 H 223 H Lactic Acid Calcium Magnesium Ferritin Total Bilirubin Direct Bilirubin AST ALT Alkaline Phosphatase Lactate Dehydrogenase C-Reactive Protein Total Protein Albumin Triglycerides Arterial Blood Glucose Arterial Blood Ionized Calcium Urine WBC (Auto) Coronavirus (PCR) SARS-CoV-2 IgG Ab Crossmatch 06/24/20 06/25/20 06/25/20 23:56 02:16 04:08 WBC RBC Hgb Hct MCV MCH MCHC RDW Lymph % (Auto) Lymph # (Auto) Seg Neutrophils % Seg Neuts % (Manual) Lymphocytes % (Manual) Nucleated RBC % Seg Neutrophils # Seg Neutrophils # Man Lymphocytes # (Manual) Monocytes # (Manual) PT INR APTT D-Dimer ABG pH 7.454 H POC ABG pCO2 56.9 H POC ABG pO2 61.0 L ABG pO2 ABG HCO3 ABG O2 Saturation ABG Base Excess ABG Hemoglobin ABG Oxyhemoglobin ABG Sodium 134.3 L ABG Potassium ABG Chloride 92.0 L ABG Glucose 246 H Oxyhemoglobin Sodium 134 L Potassium Chloride 89.7 L Carbon Dioxide 36 H BUN Creatinine 0.3 L Glucose 254 H POC Glucose 225 H Lactic Acid Calcium Magnesium Ferritin Total Bilirubin Direct Bilirubin AST ALT Alkaline Phosphatase Lactate Dehydrogenase C-Reactive Protein Total Protein Albumin 2.9 L Triglycerides Arterial Blood Glucose 246 H Arterial Blood Ionized Calcium Urine WBC (Auto) Coronavirus (PCR) SARS-CoV-2 IgG Ab Crossmatch 06/25/20 06/25/20 06/25/20 05:44 11:35 17:33 WBC RBC Hgb Hct MCV MCH MCHC RDW Lymph % (Auto) Lymph # (Auto) Seg Neutrophils % Seg Neuts % (Manual) Lymphocytes % (Manual) Nucleated RBC % Seg Neutrophils # Seg Neutrophils # Man Lymphocytes # (Manual) Monocytes # (Manual) PT INR APTT D-Dimer ABG pH POC ABG pCO2 POC ABG pO2 ABG pO2 ABG HCO3 ABG O2 Saturation ABG Base Excess ABG Hemoglobin ABG Oxyhemoglobin ABG Sodium ABG Potassium ABG Chloride ABG Glucose Oxyhemoglobin Sodium Potassium Chloride Carbon Dioxide BUN Creatinine Glucose POC Glucose 170 H 175 H 229 H Lactic Acid Calcium Magnesium Ferritin Total Bilirubin Direct Bilirubin AST ALT Alkaline Phosphatase Lactate Dehydrogenase C-Reactive Protein Total Protein Albumin Triglycerides Arterial Blood Glucose Arterial Blood Ionized Calcium Urine WBC (Auto) Coronavirus (PCR) SARS-CoV-2 IgG Ab Crossmatch 06/25/20 06/26/20 06/26/20 23:55 02:17 02:17 WBC RBC Hgb 10.0 L Hct 30.4 L MCV MCH MCHC RDW Lymph % (Auto) Lymph # (Auto) Seg Neutrophils % Seg Neuts % (Manual) Lymphocytes % (Manual) Nucleated RBC % Seg Neutrophils # Seg Neutrophils # Man Lymphocytes # (Manual) Monocytes # (Manual) PT INR APTT D-Dimer ABG pH POC ABG pCO2 POC ABG pO2 ABG pO2 ABG HCO3 ABG O2 Saturation ABG Base Excess ABG Hemoglobin ABG Oxyhemoglobin ABG Sodium ABG Potassium ABG Chloride ABG Glucose Oxyhemoglobin Sodium 136 L Potassium Chloride 90.1 L Carbon Dioxide 39 H BUN Creatinine 0.2 L Glucose 232 H POC Glucose 192 H Lactic Acid Calcium Magnesium Ferritin Total Bilirubin Direct Bilirubin AST ALT Alkaline Phosphatase Lactate Dehydrogenase C-Reactive Protein Total Protein 6.1 L Albumin 2.9 L Triglycerides Arterial Blood Glucose Arterial Blood Ionized Calcium Urine WBC (Auto) Coronavirus (PCR) SARS-CoV-2 IgG Ab Crossmatch 06/26/20 06/26/20 06/26/20 04:15 05:28 11:58 WBC RBC Hgb Hct MCV MCH MCHC RDW Lymph % (Auto) Lymph # (Auto) Seg Neutrophils % Seg Neuts % (Manual) Lymphocytes % (Manual) Nucleated RBC % Seg Neutrophils # Seg Neutrophils # Man Lymphocytes # (Manual) Monocytes # (Manual) PT INR APTT D-Dimer ABG pH 7.453 H POC ABG pCO2 59.6 H POC ABG pO2 ABG pO2 ABG HCO3 ABG O2 Saturation ABG Base Excess ABG Hemoglobin 10.0 L ABG Oxyhemoglobin ABG Sodium 134.2 L ABG Potassium 3.3 L ABG Chloride 92.0 L ABG Glucose 305 H Oxyhemoglobin Sodium Potassium Chloride Carbon Dioxide BUN Creatinine Glucose POC Glucose 234 H 198 H Lactic Acid Calcium Magnesium Ferritin Total Bilirubin Direct Bilirubin AST ALT Alkaline Phosphatase Lactate Dehydrogenase C-Reactive Protein Total Protein Albumin Triglycerides Arterial Blood Glucose 305 H Arterial Blood Ionized Calcium Urine WBC (Auto) Coronavirus (PCR) SARS-CoV-2 IgG Ab Crossmatch Chest x-ray: image reviewed Allied health notes reviewed: nursing
[2020-06-26] MEDS: MIDAZOLAM 100 MG in SODIUM CHLORIDE 0.9% 80 ML IV SCH (12:29)
--- NOTE | 2020-06-26 14:56 | Progress Note ---
Assessment and Plan Assessment and plan: - Acute hypoxemic respiratory failure; Patient intubated and on vent support --Severe COVID-19 bilateral pneumonia Coronavirus protocol: IV steroid therapy, completed remdesivir, isolation precautions, contact precautions, prone positioning while in bed, pulmonary toilet. ID following SARS CoV-2 IgG positive patient is NOT a candidate for COVID convalescent plasma --Severe sepsis/septic shock, due to COVID 19 PNA cont pressors as needed -- Acute kidney injury (SEN) , likely vasomotor nephropathy Resolved, IV fluids, avoid nephrotoxins --Acute on chronic anemia Guaiac test positive GI evaluation PPIs Continue to monitor -- Elevated liver function tests Suspected secondary to alcoholic liver disease. Supportive care, alcohol cessation, patient counseled. --Colonic distention GI evaluation -recommend stool softeners Serial abdominal x-rays Monitor electrolytes and replete -- DVT prophylaxis On therapeutic Lovenox 06/16/2020. Patient currently on mechanical ventilation with AC mode rate 30, tidal volume 500, FiO2 70% and PEEP of 16. Continue anticoagulation with Lovenox 110 milligrams subcu every 12 hours. Wean sedation of fentanyl/Versed as needed. Currently with IV steroids of Solu-Medrol 40 mg IV every 12 hours. Patient will likely need tracheostomy per pulmonary recommendations. Continue pressors to maintain MAP > 65. 06/17/2020. Patient currently on mechanical ventilation with AC mode rate 30, tidal volume 500, FiO2 65% and PEEP of 16. Continue anticoagulation with Lovenox 110 milligrams subcu every 12 hours. Wean sedation of fentanyl/Versed as needed. Currently with IV steroids of Solu-Medrol 40 mg IV every 12 hours. Patient will likely need tracheostomy per pulmonary recommendations. 06/18/2020. Patient currently on mechanical ventilation with AC mode rate 30, tidal volume 500, FiO2 70% and PEEP of 16. Continue Lovenox for anticoagulation and fentanyl/Versed for sedation. Wean steroids per pulmonary. CIWA protocol initiated for history of EtOH dependence 06/19/2020. Patient currently on mechanical ventilation with AC mode rate 30, tidal volume 500, FiO2 60% and PEEP of 16. Wean FiO2 as tolerated per protocol. Continue Lovenox for anticoagulation and fentanyl/Versed for sedation. Wean steroids per pulmonary. CIWA protocol initiated for history of EtOH dependence 06/20/2020. Patient currently on mechanical ventilation with AC mode rate 30, tidal volume 500, FiO2 60% and PEEP of 16. Wean FiO2 as tolerated, SBT per protocol. Continue Lovenox for anticoagulation and fentanyl/Versed for sedation. Wean steroids per pulmonary. Continue pressors to maintain MAP > 65 mmHg. Patient remains on ETT. Consider tracheostomy placement once oxygenation is better per pulmonary. CIWA protocol initiated for history of EtOH dependence. 06/21/2020. Patient with a small apical pneumothorax discovered yesterday. General surgery consulted and consider placing chest tube. Follow-up serial chest x-ray patient currently on mechanical ventilation with AC mode rate 30, t idal volume 500, FiO2 60% and PEEP of 16. Wean FiO2 as tolerated, SBT per protocol. Continue Lovenox for anticoagulation and fentanyl/Versed for sedation. Wean steroids per pulmonary. Continue pressors to maintain MAP > 65 mmHg. Patient remains on ETT. Consider tracheostomy placement once oxygenation is better per pulmonary. CIWA protocol initiated for history of EtOH dependence. 06/22. Status post right chest tube placement yesterday. Remains mechanically ventilated on pressors. Examination today shows slightly distended abdomen. KUB ordered. Awaiting stool guaiac. Plan to get a GI evaluation. 06/23. Has colonic distention on the x-ray. Discussed with GI-advised stool softeners for now and close monitoring. No indication for colonic decompression at this time. Guaiac test is positive. No emergent indication for endoscopy at this point as per GI. Continue to monitor hemoglobin. 06/24. Remains intubated. On pressors. GI following for positive guaiac stool and anemia, and colonic distention. 06/25. Repeat abdominal xray ordered. Remains on mechanical ventilation. 06/26. Abdominal xray - resolved colonic distension. Mechanically ventilated. The high probability of a clinically significant, sudden or life threatening deterioration of the [respiratory] system(s) required my full and direct attention, intervention and personal management. The aggregate critical care time was [31] minutes. This time is in addition to time spent performing reported procedures but includes the following: [x] Data Review and interpretation [x] Patient assessment and monitoring of vital signs [x] Documentation [x] Medication orders and management History Interval history: Sedated and intubated Hospitalist Physical - Physical exam Narrative exam: VITAL SIGNS: Reviewed. GENERAL: Sedated and intubated HEAD: No signs of head trauma. MOUTH: Oropharynx is normal. NECK: No adenopathy, no JVD. CHEST: Chest with diminished breath sounds bilaterally. No wheezes, rales, or rhonchi. CARDIAC: normal S1 and S2, without murmurs, gallops, or rubs. ABDOMEN: Slightly distended, bowel sounds hypoactive NEUROLOGIC EXAM: Sedated and intubated - Constitutional Vitals: Temp Pulse Resp BP Pulse Ox 98.1 F 101 H 18 100/73 96 06/26/20 12:00 06/26/20 14:15 06/26/20 14:15 06/26/20 14:15 06/26/20 14:15 Results - Labs CBC & Chem 7: 06/26/20 02:17 06/26/20 02:17 Labs: Laboratory Last Values WBC 14.1 K/mm3 (4.5-11.0) H 06/22/20 Unknown RBC 2.70 M/mm3 (3.65-5.03) L 06/22/20 Unknown Hgb 10.0 gm/dl (11.8-15.2) L 06/26/20 02:17 Hct 30.4 % (35.5-45.6) L 06/26/20 02:17 MCV 101 fl (84-94) H 06/22/20 Unknown MCH 33 pg (28-32) H 06/22/20 Unknown MCHC 33 % (32-34) 06/22/20 Unknown RDW 17.7 % (13.2-15.2) H 06/22/20 Unknown Plt Count 321 K/mm3 (140-440) 06/26/20 02:17 Lymph % (Auto) 4.4 % (13.4-35.0) L 06/16/20 04:00 [place] % (Auto) 3.6 % (0.0-7.3) 06/16/20 04:00 Eos % (Auto) 0.0 % (0.0-4.3) 06/16/20 04:00 Baso % (Auto) 0.3 % (0.0-1.8) 06/16/20 04:00 Lymph # (Auto) 0.6 K/mm3 (1.2-5.4) L 06/16/20 04:00 [place] # (Auto) 0.5 K/mm3 (0.0-0.8) 06/16/20 04:00 Eos # (Auto) 0.0 K/mm3 (0.0-0.4) 06/16/20 04:00 Baso # (Auto) 0.0 K/mm3 (0.0-0.1) 06/16/20 04:00 Add Manual Diff Complete 06/22/20 Unknown Total Counted 100 06/22/20 Unknown Seg Neutrophils % Job Spotter 06/16/20 04:00 Seg Neuts % (Manual) 92.0 % (40.0-70.0) H 06/22/20 Unknown Band Neutrophils % 0 % 06/15/20 Unknown Lymphocytes % (Manual) 5.0 % (13.4-35.0) L 06/22/20 Unknown Reactive Lymphs % (Man) 0 % 06/15/20 Unknown Monocytes % (Manual) 3.0 % (0.0-7.3) 06/22/20 Unknown Eosinophils % (Manual) 0 % (0.0-4.3) 06/15/20 Unknown Basophils % (Manual) 0 % (0.0-1.8) 06/15/20 Unknown Metamyelocytes % 3.0 % 06/15/20 Unknown Myelocytes % 0 % 06/15/20 Unknown Promyelocytes % 0 % 06/15/20 Unknown Blast Cells % 0 % 06/15/20 Unknown Nucleated RBC % Not Reportable 06/22/20 Unknown Seg Neutrophils # 12.7 K/mm3 (1.8-7.7) H 06/16/20 04:00 Seg Neutrophils # Man 13.0 K/mm3 (1.8-7.7) H 06/22/20 Unknown Band Neutrophils # 0.0 K/mm3 06/22/20 Unknown Lymphocytes # (Manual) 0.7 K/mm3 (1.2-5.4) L 06/22/20 Unknown Abs React Lymphs (Man) 0.0 K/mm3 06/22/20 Unknown Monocytes # (Manual) 0.4 K/mm3 (0.0-0.8) 06/22/20 Unknown Eosinophils # (Manual) 0.0 K/mm3 (0.0-0.4) 06/22/20 Unknown Basophils # (Manual) 0.0 K/mm3 (0.0-0.1) 06/22/20 Unknown Metamyelocytes # 0.0 K/mm3 06/22/20 Unknown Myelocytes # 0.0 K/mm3 06/22/20 Unknown Promyelocytes # 0.0 K/mm3 06/22/20 Unknown Blast Cells # 0.0 K/mm3 06/22/20 Unknown WBC Morphology Not Reportable 06/22/20 Unknown Hypersegmented Neuts Not Reportable 06/22/20 Unknown Hyposegmented Neuts Not Reportable 06/22/20 Unknown Hypogranular Neuts Not Reportable 06/22/20 Unknown Smudge Cells Not Reportable 06/22/20 Unknown Toxic Granulation Not Reportable 06/22/20 Unknown Toxic Vacuolation Not Reportable 06/22/20 Unknown Dohle Bodies Not Reportable 06/22/20 Unknown Pelger-Huet Anomaly Not Reportable 06/22/20 Unknown Jason Rods Not Reportable 06/22/20 Unknown Platelet Estimate Consistent w auto 06/22/20 Unknown Clumped Platelets Not Reportable 06/22/20 Unknown Plt Clumps, EDTA Not Reportable 06/22/20 Unknown Large Platelets Not Reportable 06/22/20 Unknown Giant Platelets Not Reportable 06/22/20 Unknown Platelet Satelliting Not Reportable 06/22/20 Unknown Plt Morphology Comment Not Reportable 06/22/20 Unknown RBC Morphology Not Reportable 06/22/20 Unknown Dimorphic RBCs Not Reportable 06/22/20 Unknown Polychromasia Few 06/22/20 Unknown Hypochromasia Not Reportable 06/22/20 Unknown Poikilocytosis Not Reportable 06/22/20 Unknown Anisocytosis Few 06/22/20 Unknown Microcytosis Not Reportable 06/22/20 Unknown Macrocytosis Few 06/22/20 Unknown Spherocytes Not Reportable 06/22/20 Unknown Pappenheimer Bodies Not Reportable 06/22/20 Unknown Sickle Cells Not Reportable 06/22/20 Unknown Target Cells Not Reportable 06/22/20 Unknown Tear Drop Cells Not Reportable 06/22/20 Unknown Ovalocytes Not Reportable 06/22/20 Unknown Stomatocytes Few 06/14/20 07:15 Helmet Cells Not Reportable 06/22/20 Unknown [place] Bodies Not Reportable 06/22/20 Unknown [place] Rings Not Reportable 06/22/20 Unknown [place] Cells Not Reportable 06/22/20 Unknown Bite Cells Not Reportable 06/22/20 Unknown Crenated Cell Not Reportable 06/22/20 Unknown Elliptocytes Not Reportable 06/22/20 Unknown Acanthocytes (Spur) Not Reportable 06/22/20 Unknown Rouleaux Not Reportable 06/22/20 Unknown Hemoglobin C Crystals Not Reportable 06/22/20 Unknown Schistocytes Not Reportable 06/22/20 Unknown Malaria parasites Not Reportable 06/22/20 Unknown Josue Bodies Not Reportable 06/22/20 Unknown Hem Pathologist Commnt No 06/22/20 Unknown PT 11.8 Sec. (12.2-14.9) L 06/22/20 14:29 INR 0.88 (0.87-1.13) 06/22/20 14:29 APTT 23.5 Sec. (24.2-36.6) L 06/22/20 14:29 D-Dimer 1887.82 ng/mlDDU (0-234) H 05/20/20 08:16 Heparin Anti-Xa Level 0.48 U.I./ml (0.3-0.7) 06/26/20 02:17 ABG pH 7.453 (7.320-7.450) H 06/26/20 04:15 POC ABG pCO2 59.6 mmHg (32.0-48.0) H 06/26/20 04:15 ABG pCO2 69.8 mm Hg 06/22/20 03:50 POC ABG pO2 90.9 mmHg (83-108) 06/26/20 04:15 ABG pO2 89.6 mm Hg (80.0-90.0) 06/22/20 03:50 POC ABG HCO3 40.8 06/26/20 04:15 ABG HCO3 47.5 mmol/L (20.0-26.0) H 06/22/20 03:50 ABG O2 Saturation 97.1 % (95.0-99.0) 06/22/20 03:50 ABG O2 Content 6.0 (0.0-44) 06/22/20 03:50 POC ABG Base Excess 14.7 06/26/20 04:15 ABG Base Excess 22.0 mmol/L (-2.0-3.0) H 06/22/20 03:50 ABG Hemoglobin 10.0 (12.0-17.5) L 06/26/20 04:15 ABG Oxyhemoglobin 96.6 (94-98) 06/24/20 02:45 ABG Carboxyhemoglobin 2.6 % (0.0-5.0) 06/22/20 03:50 ABG Methemoglobin 0.3 (0.0-1.5) 06/24/20 02:45 ABG Sodium 134.2 mmol/L (136.0-145.0) L 06/26/20 04:15 ABG Potassium 3.3 mmol/L (3.40-4.50) L 06/26/20 04:15 ABG Chloride 92.0 mmol/L (98-107) L 06/26/20 04:15 ABG Glucose 305 mg/dL (65-95) H 06/26/20 04:15 Oxyhemoglobin 94.1 % (95.0-99.0) L 06/22/20 03:50 Carboxyhemoglobin 1.1 (0.5-1.5) 06/24/20 02:45 FiO2 50 06/26/20 04:15 Sodium 136 mmol/L (137-145) L 06/26/20 02:17 Potassium 3.6 mmol/L (3.6-5.0) 06/26/20 02:17 Chloride 90.1 mmol/L (98-107) L 06/26/20 02:17 Carbon Dioxide 39 mmol/L (22-30) H 06/26/20 02:17 Anion Gap 11 mmol/L 06/26/20 02:17 BUN 15 mg/dL (9-20) 06/26/20 02:17 Creatinine 0.2 mg/dL (0.8-1.3) L 06/26/20 02:17 Estimated GFR > 60 ml/min 06/26/20 02:17 BUN/Creatinine Ratio 75 % 06/26/20 02:17 Glucose 232 mg/dL (75-100) H 06/26/20 02:17 POC Glucose 198 mg/dL (70-105) H 06/26/20 11:58 Lactic Acid 1.80 mmol/L (0.7-2.0) 05/09/20 Unknown Calcium 9.3 mg/dL (8.4-10.2) 06/26/20 02:17 Phosphorus 3.10 mg/dL (2.5-4.5) 06/15/20 04:00 Magnesium 1.90 mg/dL (1.7-2.3) 06/15/20 04:00 Ferritin 1496.0 ng/mL (30.0-300.0) H 06/14/20 11:50 Total Bilirubin 0.80 mg/dL (0.1-1.2) 06/26/20 02:17 Direct Bilirubin 0.6 mg/dL (0-0.2) H 05/11/20 07:30 Indirect Bilirubin 0.9 mg/dL 05/11/20 07:30 AST 23 units/L (5-40) 06/26/20 02:17 ALT 24 units/L (7-56) 06/26/20 02:17 Alkaline Phosphatase 80 units/L (35-129) 06/26/20 02:17 Lactate Dehydrogenase 705 units/L (91-180) H 05/20/20 08:16 C-Reactive Protein 3.10 mg/dL (0.00-1.30) H 05/20/20 08:16 Total Protein 6.1 g/dL (6.3-8.2) L 06/26/20 02:17 Albumin 2.9 g/dL (3.9-5) L 06/26/20 02:17 Albumin/Globulin Ratio 0.9 % 06/26/20 02:17 Triglycerides 152 mg/dL (2-149) H 06/15/20 05:00 Procalcitonin 0.94 ng/mL (<0.15) 06/14/20 11:50 Arterial Blood Glucose 305 mg/dL (65-95) H 06/26/20 04:15 Arterial Blood Ionized Calcium 4.6 mg/dL (4.6-5.3) 06/26/20 04:15 Urine Color Fauzia (Yellow) 05/10/20 Unknown Urine Turbidity Clear (Clear) 05/10/20 Unknown Urine pH 5.0 (5.0-7.0) 05/10/20 Unknown Ur Specific [place] 1.019 (1.003-1.030) 05/10/20 Unknown Urine Protein 100 mg/dl mg/dL (Negative) 05/10/20 Unknown Urine Glucose (UA) Neg mg/dL (Negative) 05/10/20 Unknown Urine Ketones Neg mg/dL (Negative) 05/10/20 Unknown Urine Blood Lg (Negative) 05/10/20 Unknown Urine Nitrite Neg (Negative) 05/10/20 Unknown Urine Bilirubin Neg (Negative) 05/10/20 Unknown Urine Urobilinogen 2.0 mg/dL (<2.0) 05/10/20 Unknown Ur Leukocyte Esterase Neg (Negative) 05/10/20 Unknown Urine WBC (Auto) 11.0 /HPF (0.0-6.0) H 05/10/20 Unknown Urine RBC (Auto) 2.0 /HPF (0.0-6.0) 05/10/20 Unknown U Epithel Cells (Auto) 1.0 /HPF (0-13.0) 05/10/20 Unknown Urine Bacteria (Auto) 1+ /HPF (Negative) 05/10/20 Unknown Urine Mucus Few /HPF 05/10/20 Unknown Plasma/Serum Alcohol < 0.01 % (0-0.07) 05/09/20 14:20 Coronavirus (PCR) Positive (Negative) A 05/10/20 Unknown SARS-CoV-2 IgG Ab Reactive (NonReactive) A 05/11/20 07:30 Blood Type B POSITIVE 06/21/20 14:18 Antibody Screen Negative 06/21/20 14:18 Crossmatch See Detail 06/21/20 14:18 - Diagnostic Impressions Diagnostic Impressions: Echocardiogram 05/20/20 13:02 Transthoracic Echocardiogram Indication: CHF BP: 97/73 Conclusions *The study quality is technically very difficult and limited. *The left ventricular chamber size, wall thickness and systolic function are within normal limits. There are no wall motion abnormalities observed. Ejection fraction is normal. *The estimated ejection fraction is 60-65%. *The pericardium appears normal. Findings Procedure Info: The study quality is technically difficult. Left Ventricle: The left ventricular chamber size, wall thickness and systolic function are within normal limits. There are no wall motion abnormalities observed. Ejection fraction is normal. The estimated ejection fraction is 60-65%. Abnormal left ventricular diastolic filling is observed, consistent with impaired relaxation. Left Atrium: The left atrium is normal in size with no visual thrombus identified. Right Ventricle: The right ventricle is not well visualized. Right Atrium: The right atrium is not well visualized. Aortic Valve: The aortic valve is trileaflet. The leaflets are thin with normal excursion. There is no aortic stenosis or regurgitation present. Mitral Valve: The mitral valve appears normal in structure and function. Tricuspid Valve: The tricuspid valve appears normal in structure and function. Unable to estimate the right ventricular systolic pressure. Pulmonic Valve: The pulmonic valve is not well visualized. There is no evidence of pulmonic regurgitation. There is no pulmonic stenosis. Pericardium: The pericardium appears normal. Pulmonary Artery: The main pulmonary artery is not well visualized. Venous: The inferior vena cava appears normal in size. Measurements Chambers 2D Name Value Normal Range IVSd (2D) 0.83 cm (0.6 - 1.1) LVPWd (2D) 0.83 cm (0.6 - 1.1) LVIDd (2D) 3.88 cm (3.7 - 5.6) LVIDs (2D) 2.46 cm (2 - 3.8) LV FS (2D) 36.52 % - EF Teichholz (2D) 66.97 % - Ao root diameter (2D) 3.47 cm (2 - 3.7) Volumes/Mass Name Value Normal Range LA ESV SP 4CH (A/L) 22.4 ml - LA ESV SP 2CH (A/L) 22.89 ml - LA ESV BP (A/L) 23.06 ml - LA ESV SP 4CH (MOD) 21.09 ml - LA ESV SP 2CH (MOD) 22.44 ml - Diastolic/Systolic Function Name Value Normal Range MV E-wave Vmax 0.48 m/sec - MV deceleration time 156.3 msec - MV A-wave Vmax 0.59 m/sec - MV E:A ratio 0.81 ratio - Aortic Valve Name Value Normal Range AV Vmax 0.97 m/sec - AV VTI 14.49 cm - AV peak gradient 3.73 mmHg - AV mean gradient 1.89 mmHg - LVOT diameter 2.09 cm - LVOT Vmax 0.72 m/sec - LVOT VTI 10.21 cm - LVOT peak gradient 2.05 mmHg - LVOT mean gradient 1.03 mmHg - SV LVOT 35.17 ml - INNA (continuity Vmax) 2.55 cm2 - INNA (continuity VTI) 2.43 cm2 - Tricuspid Valve Name Value Normal Range TV E-wave Vmax 0.37 m/sec - Pulmonic Valve/Qp:Qs Name Value Normal Range PV Vmax 0.72 m/sec - PV peak gradient 2.06 mmHg - RVOT Vmax 0.85 m/sec - RVOT VTI 9.89 cm - RVOT peak gradient 2.9 mmHg - PV acceleration time 72.31 msec - Cantor/IV: Voiding Method Condom Catheter IV Catheter Type [Right Upper PICC Line arm] IV Catheter Type [Right CVL Internal Jugular] IV Catheter Type [Right Peripheral IV Forearm] IV Catheter Type [Left Forearm Peripheral IV ] IV Catheter Type [Left Wrist] INT / Saline Lock IV Catheter Type [Right Hand] INT / Saline Lock IV Catheter Type [Left Hand] INT / Saline Lock IV Catheter Type [Left Peripheral IV Antecubital] Active Medications - Current Medications Current Medications: Generic Name Dose Route Start Last Admin Trade Name Freq PRN Reason Stop Dose Admin Acetaminophen 650 mg 06/14/20 10:07 06/21/20 20:21 Tylenol FEEDTUBE 650 mg Q4H PRN Administration Pain, Mild (1-3) Alprazolam 0.25 mg 05/20/20 17:53 06/25/20 04:11 Alprazolam 0.25 Mg Tab PO 0.25 mg Q8H PRN Administration Anxiety Lipase/Protease/Amylase 1 each 05/22/20 13:01 Lipase 10,500/Protease 25,000/Amylase 43,750 (Units) Dr Newell FEEDTUBE PRN PRN For Clogged Feeding Tube Docusate Sodium 100 mg 05/28/20 14:00 06/26/20 09:46 Colace PO 100 mg BID DESIRE Administration Fentanyl 50 mcg 06/22/20 09:48 Fentanyl 100 Mcg/2 Ml Inj IV Q10MIN PRN ANALGESIA Folic Acid 1 mg 05/09/20 15:36 06/26/20 09:48 Folvite PO 1 mg QDAY DESIRE Administration Heparin Sodium (Porcine) 4,300 unit 06/22/20 12:48 Heparin 10,000 Units/10 Ml Vial 40 unit/kg (4300 unit) IV Q6H PRN Anti-Xa Assay < 0.1 units/ml Hydrophilic Ointment 1 applic 05/21/20 20:33 Lip Therapy Vaseline TP Q2HR PRN Dry Lips Midazolam HCl 100 mg/ Sodium 100 mls @ 2 mls/hr 06/02/20 14:00 06/26/20 12:29 Chloride IV 3 mg/hr TITR DESIRE 3 mls/hr Administration Protocol 2 MG/HR Norepinephrine 4 mg in 250 mls @ 7.5 mls/hr 06/04/20 16:00 06/26/20 12:27 Levophed Drip 4 Mg/Ns 250 Ml IV 15 mcg/min TITR DESIRE 56.25 mls/hr Administration Protocol 2 MCG/MIN Fentanyl Citrate 2,000 mcg in 100 mls @ 5.32 mls/hr 06/09/20 14:00 06/26/20 12:26 Fentanyl Drip Premix IV 4 mcg/kg/hr TITR DESIRE 21.28 mls/hr Administration Protocol 1 MCG/KG/HR Vasopressin 20 unit/ Sodium 101 mls @ 9.09 mls/hr 06/09/20 18:00 Chloride IV TITR [facility] Protocol 0.03 UNITS/MIN Heparin Sodium/Sodium Chloride 25,000 unit in 500 mls @ 30 mls/hr 06/22/20 13:00 06/26/20 04:28 Heparin/ 0.45% Nacl-25,000 Unit/500 Ml IV 1,500 units/hr TITR DESIRE 30 mls/hr Administration Protocol 1,500 UNITS/HR Propofol 1,000 mg in 100 mls @ 3.24 mls/hr 06/24/20 22:00 06/26/20 12:26 Diprivan 10 Mg/Ml IV 40 mcg/kg/min TITR DESIRE 25.92 mls/hr Administration Protocol 5 MCG/KG/MIN Insulin Glargine 24 units 06/26/20 22:00 Insulin Glargine 100 Units/Ml SUB-Q QHS [facility] Insulin Human Lispro 0 unit 05/29/20 14:00 06/26/20 11:58 Humalog SUB-Q 3 unit Q6H [facility] Administration Protocol Methylprednisolone Sodium Succinate 40 mg 05/20/20 18:00 06/26/20 08:44 Methylprednisolone Sod Succinate 40 Mg/1 Ml Inj IV Not Given Q12H [facility] Multi-Ingred Cream/Lotion/Oil/Oint 1 applic 05/21/20 20:33 Mineral Oil/Petrolatum, White Ophth Oint 3.5 Gm OU Q4HR PRN Dry Eye(s) Pantoprazole Sodium 40 mg 06/23/20 10:00 06/26/20 09:46 Pantoprazole 40 Mg Inj IV 40 mg QDAY DESIRE Administration Phenobarbital 20 mg 06/18/20 14:00 06/26/20 06:37 Phenobarbital 20 Mg/5 Ml Oral Liqd FEEDTUBE 20 mg Q8HR DESIRE Administration Polyethylene Glycol 17 gm 05/28/20 22:00 06/25/20 21:52 Miralax 3350 PO 17 gm QHS DESIRE Administration Quetiapine Fumarate 300 mg 06/10/20 22:00 06/26/20 09:47 Seroquel PO 300 mg BID DESIRE Administration Senna 17.2 mg 06/07/20 10:00 06/26/20 09:46 Senokot PO 17.2 mg BID DESIRE Administration Simethicone 160 mg 06/22/20 13:00 06/26/20 12:27 Simethicone 80 Mg Chew Tab PO 06/27/20 07:01 160 mg Q6H DESIRE Administration Simple Syrup 15 ml 05/22/20 13:01 Simple Syrup 15 Ml FEEDTUBE PRN PRN Hypoglycemia Simple Syrup 30 ml 05/22/20 13:01 Simple Syrup 15 Ml FEEDTUBE PRN PRN Hypoglycemia Sodium Bicarbonate 325 mg 05/22/20 13:01 Sodium Bicarbonate 325 Mg Tab FEEDTUBE PRN PRN For Clogged Feeding Tube Sodium Chloride 10 ml 05/09/20 22:00 06/26/20 09:48 Sodium Chloride Flush Syringe 10 Ml IV 10 ml BID DESIRE Administration Nutrition/Malnutrition Assess - Dietary Evaluation Nutrition/Malnutrition Findings: Nutrition Notes Start: 05/17/20 14:10 Freq: Status: Active Protocol: Document 06/25/20 13:36 AB (Rec: 06/25/20 13:42 AB [id number]) Co-Sign 06/25/20 13:36 LP Nutrition Notes Initial or Follow up Reassessment Current Diagnosis Sepsis,Respiratory Failure Other Pertinent Diagnosis Bilat pneu, COVID-19 (+), EtOH dependence Current Diet Vital HP at 65 ml/hr (goal rate) Labs/Tests Na 134 Cr 0.3 POC BG 170 Pertinent Medications Reviewed Height 6 ft Weight 108 kg [place] Body Weight (kg) 80.90 BMI 32.3 Weight Status Obese Subjective/Other Information F/U for TF tolerance. Per RN, pt is tolerating TF at goal. Per RN, the MD came by and said that there is no ileus. Percent of energy/protein needs met: 85%/84% Burn Absent Trauma Absent GI Symptoms None Current % PO Negligible Minimum of two criteria No physical signs of malnutrition #1 Nutrition Diagnosis Inadequate oral intake Diagnosis Progress(for reassessment Continues documentation) Is patient on ventilator? Yes Is Patient Ambulatory and/or Out of Bed No REE-([facility]-confined to bed) 2371.200 Kcal/Kg value to use for calculation 17 Approximate Energy Requirements Using 1836 kcal/Kg Calculation Used for Recommendations Kcal/kg Additional Notes Pro needs >2g/kg IBW: at least 162g/day Fluid needs 1ml/kcal Nutrition Intervention Change Diet Order: Continue TF Nutrition Support: Vital HP at 65ml/hr with 50ml water flush q4h. Kcal 1,560 Protein (gm) 136 Fluid (mL) 1,304 Goal #1 TF tolerance Goal #2 TF (at goal rate) to meet at least 75% energy and pro needs Anticipated Discharge Needs: Unable to identify at this time Follow-Up By: 06/30/20 Additional Comments F/U TF tolerance
--- NOTE | 2020-06-26 18:06 | Gastroenterology Progress Note ---
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 - Will try rectal suppositories + senna, and hold miralax. - If not improved in 24 hours, and becomes more distended, will consider neostigmine. Subjective Date of service: 06/26/20 Principal diagnosis: Distended Bowel Interval history: Patient is tolerating tube feeds. Discussed with nurse that the patient had a BM yesterday but not today. No imaging studies today. Objective - Constitutional Vitals: Temp Pulse Resp BP Pulse Ox 98.3 F 121 H 22 131/73 99 06/26/20 16:00 06/26/20 17:00 06/26/20 17:00 06/26/20 17:00 06/26/20 17:00 General appearance: no acute distress - Respiratory Respiratory effort: normal Respiratory: bilateral: CTA - Cardiovascular Rhythm: regular Heart Sounds: Present: S1 & S2 - Gastrointestinal General gastrointestinal: Present: soft, non-tender, distended (Mild distention) - Labs CBC & Chem 7: 06/26/20 02:17 06/26/20 02:17 Labs: Laboratory Results - last 24 hr 06/25/20 06/26/20 06/26/20 23:55 02:17 02:17 Hgb 10.0 L Hct 30.4 L Plt Count 321 Heparin Anti-Xa Level ABG pH POC ABG pCO2 POC ABG pO2 POC ABG HCO3 POC ABG Base Excess ABG Hemoglobin ABG Sodium ABG Potassium ABG Chloride ABG Glucose FiO2 Sodium 136 L Potassium 3.6 Chloride 90.1 L Carbon Dioxide 39 H Anion Gap 11 BUN 15 Creatinine 0.2 L Estimated GFR > 60 BUN/Creatinine Ratio 75 Glucose 232 H POC Glucose 192 H Calcium 9.3 Total Bilirubin 0.80 AST 23 ALT 24 Alkaline Phosphatase 80 Total Protein 6.1 L Albumin 2.9 L Albumin/Globulin Ratio 0.9 Arterial Blood Glucose Arterial Blood Ionized Calcium 06/26/20 06/26/20 06/26/20 02:17 04:15 05:28 Hgb Hct Plt Count Heparin Anti-Xa Level 0.48 ABG pH 7.453 H POC ABG pCO2 59.6 H POC ABG pO2 90.9 POC ABG HCO3 40.8 POC ABG Base Excess 14.7 ABG Hemoglobin 10.0 L ABG Sodium 134.2 L ABG Potassium 3.3 L ABG Chloride 92.0 L ABG Glucose 305 H FiO2 50 Sodium Potassium Chloride Carbon Dioxide Anion Gap BUN Creatinine Estimated GFR BUN/Creatinine Ratio Glucose POC Glucose 234 H Calcium Total Bilirubin AST ALT Alkaline Phosphatase Total Protein Albumin Albumin/Globulin Ratio Arterial Blood Glucose 305 H Arterial Blood Ionized Calcium 4.6 06/26/20 11:58 Hgb Hct Plt Count Heparin Anti-Xa Level ABG pH POC ABG pCO2 POC ABG pO2 POC ABG HCO3 POC ABG Base Excess ABG Hemoglobin ABG Sodium ABG Potassium ABG Chloride ABG Glucose FiO2 Sodium Potassium Chloride Carbon Dioxide Anion Gap BUN Creatinine Estimated GFR BUN/Creatinine Ratio Glucose POC Glucose 198 H Calcium Total Bilirubin AST ALT Alkaline Phosphatase Total Protein Albumin Albumin/Globulin Ratio Arterial Blood Glucose Arterial Blood Ionized Calcium
[2020-06-26] MEDS: INSULIN GLARGINE 100 UNITS/ML SUB-Q SCH (21:34)
[2020-06-27] MEDS: INSULIN LISPRO 100 UNIT/ML VIAL 3 mL SUB-Q SCH ×5 (00:49→23:55)
[2020-06-27] MEDS: SIMETHICONE 80 MG CHEW TAB PO SCH ×2 (03:23→06:43)
[2020-06-27] MEDS: PHENobarbital 20 MG/5 ML ORAL LIQD FEEDTUBE SCH ×3 (05:40→21:31)
[2020-06-27] MEDS: fentaNYL DRIP Premix 2,000 MCG/100 ML BAG IV SCH ×6 (06:22→23:53)
[2020-06-27] MEDS: methylPREDNISolone Sod Succinate 40 MG/1 ML INJ IV SCH ×2 (06:43→18:29)
[2020-06-27] MEDS: NORepinephrine/NS 4 MG-250 ML 4 MG/250 ML BAG IV SCH ×2 (07:55→18:27)
[2020-06-27] MEDS: PANTOPRAZOLE 40 MG INJ IV SCH (09:51)
[2020-06-27] MEDS: DOCUSATE SODIUM 100 MG/10 ML ORAL LIQD PO SCH ×2 (09:51→21:32)
[2020-06-27] MEDS: FOLIC ACID 1 MG TAB PO SCH (09:52)
[2020-06-27] MEDS: QUEtiapine 100 MG TAB PO SCH ×2 (09:52→21:31)
[2020-06-27] MEDS: SENNOSIDES 8.6 MG TAB PO SCH ×2 (09:52→21:32)
--- NOTE | 2020-06-27 10:08 | XRay Report ---
ABDOMEN 1 VIEW INDICATION / CLINICAL INFORMATION: Evaluate pseudo-obstruction. COMPARISON: 06/25/2020. FINDINGS: TUBES / LINES: Esophagogastric tube projects over the left upper quadrant. BOWEL GAS PATTERN: No significant abnormality. Fecal material is seen within the hepatic flexure. FREE AIR / EXTRALUMINAL GAS: None seen. ADDITIONAL FINDINGS: No significant additional findings. IMPRESSION: 1. No significant abnormality. Signer Name: Portillo Mac MD Signed: 06/27/2020 10:04 AM Workstation Name: [id number]
--- NOTE | 2020-06-27 10:41 | Progress Note ---
Assessment and Plan Acute hypoxemic respiratory failure due to COVID-19 Severe COVID infection Severe Sepsis Bilateral pneumonia Acute kidney injury (SEN) with acute tubular necrosis (ATN)-improving h/o Alcohol dependence Elevated liver function tests probably secondary COVID Continue to wean supplemental oxygen for O2 sats>90% Continue lung protective strategies Chest tube management and care. Decrease PEEP to 8, ABG in am. If acceptable gas exchange, decrease PEEP in am to 6, and start SATs and SBTs Surgery on board fro trach/PEG placement Continue vasopressor support, keep MAP >65 CXR as clinically indicated - VAP bundle addressed, aspiration precautions HOB >40 - Continue lung protective strategies, permissive hypercapnia acceptable. - continue bronchodilators with pulmonary hygiene per RT - wean per pulmonary driven protocols otherwise - accuchecks with glycemic control per SSI (While critically ill target blood glucose of 140-180 mg/dL; avoid hypoglycemia) - continue enteral nutritional support at goal rate as tolerated - Prone positioning as tolerated and indicated - Monitor liver function test , avoid hepatotoxic agents - Avoid nephrotoxins, renally dose all medications, conservative fluid management - continue to avoid benzodiazepines, reduce the possibility of delirium - prn analgesia per CPOT score - Maintenance of sleep-wake cycle, avoid delirium - continue to avoid benzodiazepines, reduce the possibility of delirium - aspiration precautions -Stress ulcer prophylaxis - PT/OT/ROM exercises - continue mobility protocols for pressure ulcer prevention -CBC, BMP as clinically indicated -Supportive transfusions to keep HgB >7g/dL - Monitor hemodynamics closely - continue other care per attending / other consultants COVID SPECIFIC INTERVENTIONS - SARS CoV-2 IgG positive patient is NOT a candidate for COVID convalescent plasma -Completed remdesivir -Steroids -Monitor inflammatory markers per facility protocol- ferritin, Ddimer, CRP, LDH -Continue anticoagulation per System Protocol based on d-dimer -Continue contact and airborne isolation .... Re-evaluate in am & prn CONDITION: CRITICAL PROGNOSIS: GUARDED CODE STATUS: FULL CODE The high probability of a clinically significant, sudden or life-threatening deterioration of the [respiratory, cardiovascular, hematologic & neurologic] system(s) required my full and direct attention, intervention and personal management. The aggregate critical care time was [32] minutes without overlap. Time includes spent on; [x] Data Review and interpretation [x] Patient assessment and monitoring of vital signs [x] Documentation [x] Medication orders and management Subjective Date of service: 06/27/20 Principal diagnosis: Distended Bowel Interval history: Patient is seen today for: Acute hypoxemic respiratory failure due to COVID-19; Severe Sepsis; Bilateral pneumonia; Alcohol dependence; Elevated liver function tests Seen and examined at bedside; 24hour events reviewed; nursing and respiratory care staff consulted; no adverse overnight events reported to me; resting in bed; remains on MVS with increasing ventilatory requirements, FiO2 at 40% PEEP +10 Better oxygenation and synchrony with sedation. Continues to intermittently require vasopressor support for sedation induced hypotension Remains on sedation- Midazolam and Fentanyl. Objective Vital Signs - 12hr 06/26/20 06/26/20 06/26/20 22:45 23:00 23:15 Temperature Pulse Rate 113 H 112 H 108 H Respiratory 30 H 30 H 30 H Rate Blood Pressure 91/49 69/35 70/36 O2 Sat by Pulse 94 97 95 Oximetry 06/26/20 06/26/20 06/26/20 23:30 23:45 23:50 Temperature 97.5 F L Pulse Rate 104 H 99 H Respiratory 30 H 30 H Rate Blood Pressure 70/36 73/49 O2 Sat by Pulse 100 94 Oximetry 06/26/20 06/27/20 06/27/20 23:52 00:00 00:15 Temperature Pulse Rate 89 91 H 92 H Respiratory 30 H 30 H Rate Blood Pressure 110/69 104/67 92/55 O2 Sat by Pulse 100 97 97 Oximetry 06/27/20 06/27/20 06/27/20 00:30 00:45 01:01 Temperature Pulse Rate 92 H 92 H 101 H Respiratory 30 H 30 H 30 H Rate Blood Pressure 94/56 98/59 98/59 O2 Sat by Pulse 98 95 100 Oximetry 06/27/20 06/27/20 06/27/20 01:15 01:30 01:45 Temperature Pulse Rate 117 H 127 H 126 H Respiratory 18 25 H 22 Rate Blood Pressure 128/85 127/83 133/78 O2 Sat by Pulse 95 96 94 Oximetry 06/27/20 06/27/20 06/27/20 02:00 02:15 02:31 Temperature Pulse Rate 131 H 128 H 141 H Respiratory 24 24 32 H Rate Blood Pressure 134/84 131/81 130/87 O2 Sat by Pulse 94 96 93 Oximetry 06/27/20 06/27/20 06/27/20 02:45 03:01 03:15 Temperature Pulse Rate 138 H 135 H 139 H Respiratory 24 26 H 37 H Rate Blood Pressure 124/97 120/90 120/90 O2 Sat by Pulse 92 92 91 Oximetry 06/27/20 06/27/20 06/27/20 03:20 03:30 03:45 Temperature 98.4 F Pulse Rate 128 H 125 H Respiratory 20 27 H 25 H Rate Blood Pressure 116/78 121/84 O2 Sat by Pulse 97 96 98 Oximetry 06/27/20 06/27/20 06/27/20 04:00 04:10 04:15 Temperature 98.4 F Pulse Rate 121 H 118 H 119 H Respiratory 16 20 19 Rate Blood Pressure 105/64 115/71 104/65 O2 Sat by Pulse 98 97 98 Oximetry 06/27/20 06/27/20 06/27/20 04:30 04:40 04:45 Temperature Pulse Rate 117 H 119 H 120 H Respiratory 16 16 Rate Blood Pressure 111/73 111/78 O2 Sat by Pulse 100 100 100 Oximetry 06/27/20 06/27/20 06/27/20 05:00 05:15 05:31 Temperature Pulse Rate 118 H 126 H 130 H Respiratory 18 23 31 H Rate Blood Pressure 115/71 135/85 165/81 O2 Sat by Pulse 95 96 90 Oximetry 06/27/20 06/27/20 06/27/20 05:45 06:00 06:15 Temperature Pulse Rate 128 H 121 H 117 H Respiratory 29 H 24 31 H Rate Blood Pressure 151/89 136/75 142/80 O2 Sat by Pulse 88 85 81 L Oximetry 06/27/20 06/27/20 06/27/20 06:31 06:45 07:00 Temperature Pulse Rate 119 H 108 H 113 H Respiratory 23 30 H 23 Rate Blood Pressure 110/63 89/53 84/54 O2 Sat by Pulse 91 87 95 Oximetry 06/27/20 20/20 20 07:15 08:00 08:18 Temperature 98.7 F Pulse Rate 111 H 104 H Respiratory 28 H Rate Blood Pressure 91/53 97/55 O2 Sat by Pulse 93 94 Oximetry Constitutional: no acute distress, other (middle aged obese male with mildly increased respiratory effort at rest on MVS) Eyes: non-icteric ENT: oropharynx moist, other (ETT 24 cm CHILO) Neck: supple, no JVD Effort: normal Ascultation: Bilateral: diminished breath sounds, rhonchi (scant), other (right chest tube) Percussion: Bilateral: not dull Cardiovascular: regular rate and rhythm, other (No R/M) Gastrointestinal: normoactive bowel sounds, soft, non-tender, other (distended and firm) Integumentary: normal Extremities: no cyanosis, no edema, pulses normal, no ischemia or petechiae Neurologic: pupils equal and round, other (sedated) Psychiatric: other (sedated) CBC and BMP: 06/26/20 02:17 06/26/20 02:17 ABG, PT/INR, D-dimer: ABG ABG pH 7.464 (7.320-7.450) H 06/27/20 04:35 POC ABG pCO2 60.8 mmHg (32.0-48.0) H 06/27/20 04:35 ABG pCO2 69.8 mm Hg 06/22/20 03:50 POC ABG pO2 100.4 mmHg (83-108) 06/27/20 04:35 ABG pO2 89.6 mm Hg (80.0-90.0) 06/22/20 03:50 POC ABG HCO3 42.7 06/27/20 04:35 ABG O2 Saturation 97.1 % (95.0-99.0) 06/22/20 03:50 PT/INR, D-dimer PT 11.8 Sec. (12.2-14.9) L 06/22/20 14:29 INR 0.88 (0.87-1.13) 06/22/20 14:29 D-Dimer 1887.82 ng/mlDDU (0-234) H 05/20/20 08:16 Abnormal lab findings: Abnormal Labs 05/09/20 05/09/20 05/09/20 12:59 12:59 12:59 WBC 11.8 H RBC Hgb Hct MCV 96 H MCH 34 H MCHC 35 H RDW Lymph % (Auto) 6.9 L Lymph # (Auto) 0.8 L Seg Neutrophils % 87.5 H Seg Neuts % (Manual) Lymphocytes % (Manual) Nucleated RBC % Seg Neutrophils # 10.3 H Seg Neutrophils # Man Lymphocytes # (Manual) Monocytes # (Manual) PT INR APTT D-Dimer ABG pH POC ABG pCO2 POC ABG pO2 ABG pO2 ABG HCO3 ABG O2 Saturation ABG Base Excess ABG Hemoglobin ABG Oxyhemoglobin ABG Sodium ABG Potassium ABG Chloride ABG Glucose Oxyhemoglobin Sodium 130 L Potassium 3.5 L Chloride 86.4 L Carbon Dioxide BUN 33 H Creatinine 2.3 H Glucose 156 H POC Glucose Lactic Acid Calcium Magnesium Ferritin Total Bilirubin 3.40 H Direct Bilirubin 1.7 H AST 385 H ALT 134 H Alkaline Phosphatase Lactate Dehydrogenase C-Reactive Protein Total Protein Albumin 3.0 L Triglycerides Arterial Blood Glucose Arterial Blood Ionized Calcium Urine WBC (Auto) Coronavirus (PCR) SARS-CoV-2 IgG Ab Crossmatch 05/09/20 05/09/20 05/09/20 12:59 12:59 12:59 WBC RBC Hgb Hct MCV MCH MCHC RDW Lymph % (Auto) Lymph # (Auto) Seg Neutrophils % Seg Neuts % (Manual) Lymphocytes % (Manual) Nucleated RBC % Seg Neutrophils # Seg Neutrophils # Man Lymphocytes # (Manual) Monocytes # (Manual) PT INR APTT D-Dimer 3242.51 H ABG pH POC ABG pCO2 POC ABG pO2 ABG pO2 ABG HCO3 ABG O2 Saturation ABG Base Excess ABG Hemoglobin ABG Oxyhemoglobin ABG Sodium ABG Potassium ABG Chloride ABG Glucose Oxyhemoglobin Sodium Potassium Chloride Carbon Dioxide BUN Creatinine Glucose 158 H POC Glucose Lactic Acid 3.50 H* Calcium Magnesium Ferritin Total Bilirubin Direct Bilirubin AST ALT Alkaline Phosphatase Lactate Dehydrogenase 2166 H C-Reactive Protein 39.00 H Total Protein Albumin Triglycerides Arterial Blood Glucose Arterial Blood Ionized Calcium Urine WBC (Auto) Coronavirus (PCR) SARS-CoV-2 IgG Ab Crossmatch 05/09/20 05/09/20 05/09/20 12:59 14:20 14:20 WBC RBC Hgb Hct MCV MCH MCHC RDW Lymph % (Auto) Lymph # (Auto) Seg Neutrophils % Seg Neuts % (Manual) Lymphocytes % (Manual) Nucleated RBC % Seg Neutrophils # Seg Neutrophils # Man Lymphocytes # (Manual) Monocytes # (Manual) PT INR APTT D-Dimer 2861.78 H ABG pH POC ABG pCO2 POC ABG pO2 ABG pO2 ABG HCO3 ABG O2 Saturation ABG Base Excess ABG Hemoglobin ABG Oxyhemoglobin ABG Sodium ABG Potassium ABG Chloride ABG Glucose Oxyhemoglobin Sodium Potassium Chloride Carbon Dioxide BUN Creatinine Glucose POC Glucose Lactic Acid 2.20 H* Calcium Magnesium Ferritin 33230.0 H Total Bilirubin Direct Bilirubin AST ALT Alkaline Phosphatase Lactate Dehydrogenase C-Reactive Protein Total Protein Albumin Triglycerides Arterial Blood Glucose Arterial Blood Ionized Calcium Urine WBC (Auto) Coronavirus (PCR) SARS-CoV-2 IgG Ab Crossmatch 05/09/20 05/09/20 05/09/20 14:20 14:20 15:56 WBC RBC Hgb Hct MCV MCH MCHC RDW Lymph % (Auto) Lymph # (Auto) Seg Neutrophils % Seg Neuts % (Manual) Lymphocytes % (Manual) Nucleated RBC % Seg Neutrophils # Seg Neutrophils # Man Lymphocytes # (Manual) Monocytes # (Manual) PT INR APTT D-Dimer ABG pH POC ABG pCO2 POC ABG pO2 57.3 L ABG pO2 ABG HCO3 ABG O2 Saturation ABG Base Excess ABG Hemoglobin ABG Oxyhemoglobin 86.3 L ABG Sodium 129.9 L ABG Potassium ABG Chloride ABG Glucose 146 H Oxyhemoglobin Sodium Potassium Chloride Carbon Dioxide BUN Creatinine Glucose 143 H POC Glucose Lactic Acid Calcium Magnesium Ferritin 87820.0 H Total Bilirubin Direct Bilirubin AST ALT Alkaline Phosphatase Lactate Dehydrogenase 1953 H C-Reactive Protein 33.50 H Total Protein Albumin Triglycerides Arterial Blood Glucose 146 H Arterial Blood Ionized Calcium 3.9 L Urine WBC (Auto) Coronavirus (PCR) SARS-CoV-2 IgG Ab Crossmatch 05/10/20 05/10/20 05/10/20 10:32 10:32 18:50 WBC 15.4 H RBC Hgb Hct MCV 97 H MCH 33 H MCHC RDW 13.1 L Lymph % (Auto) Lymph # (Auto) Seg Neutrophils % Seg Neuts % (Manual) 89.0 H Lymphocytes % (Manual) 8.0 L Nucleated RBC % Seg Neutrophils # Seg Neutrophils # Man 13.7 H Lymphocytes # (Manual) Monocytes # (Manual) PT INR APTT D-Dimer ABG pH POC ABG pCO2 POC ABG pO2 ABG pO2 ABG HCO3 ABG O2 Saturation ABG Base Excess ABG Hemoglobin ABG Oxyhemoglobin ABG Sodium ABG Potassium ABG Chloride ABG Glucose Oxyhemoglobin Sodium 136 L Potassium Chloride 97.4 L Carbon Dioxide BUN 37 H Creatinine 1.7 H Glucose 209 H POC Glucose Lactic Acid Calcium Magnesium Ferritin > 2000.0 H Total Bilirubin Direct Bilirubin AST ALT Alkaline Phosphatase Lactate Dehydrogenase C-Reactive Protein Total Protein Albumin Triglycerides Arterial Blood Glucose Arterial Blood Ionized Calcium Urine WBC (Auto) Coronavirus (PCR) SARS-CoV-2 IgG Ab Crossmatch 05/10/20 05/10/20 05/10/20 18:50 19:00 Unknown WBC RBC Hgb Hct MCV MCH MCHC RDW Lymph % (Auto) Lymph # (Auto) Seg Neutrophils % Seg Neuts % (Manual) Lymphocytes % (Manual) Nucleated RBC % Seg Neutrophils # Seg Neutrophils # Man Lymphocytes # (Manual) Monocytes # (Manual) PT INR APTT D-Dimer > 87034 H ABG pH POC ABG pCO2 POC ABG pO2 ABG pO2 ABG HCO3 ABG O2 Saturation ABG Base Excess ABG Hemoglobin ABG Oxyhemoglobin ABG Sodium ABG Potassium ABG Chloride ABG Glucose Oxyhemoglobin Sodium Potassium Chloride Carbon Dioxide BUN Creatinine Glucose POC Glucose Lactic Acid Calcium Magnesium Ferritin Total Bilirubin Direct Bilirubin AST ALT Alkaline Phosphatase Lactate Dehydrogenase 1879 H C-Reactive Protein 24.80 H Total Protein Albumin Triglycerides Arterial Blood Glucose Arterial Blood Ionized Calcium Urine WBC (Auto) 11.0 H Coronavirus (PCR) SARS-CoV-2 IgG Ab Crossmatch 05/10/20 05/11/20 05/11/20 Unknown 07:30 07:30 WBC RBC Hgb Hct MCV MCH MCHC RDW Lymph % (Auto) Lymph # (Auto) Seg Neutrophils % Seg Neuts % (Manual) Lymphocytes % (Manual) Nucleated RBC % Seg Neutrophils # Seg Neutrophils # Man Lymphocytes # (Manual) Monocytes # (Manual) PT INR APTT D-Dimer > 2000 H ABG pH POC ABG pCO2 POC ABG pO2 ABG pO2 ABG HCO3 ABG O2 Saturation ABG Base Excess ABG Hemoglobin ABG Oxyhemoglobin ABG Sodium ABG Potassium ABG Chloride ABG Glucose Oxyhemoglobin Sodium Potassium Chloride 96.3 L Carbon Dioxide BUN 36 H Creatinine Glucose 161 H POC Glucose Lactic Acid Calcium 8.3 L Magnesium Ferritin Total Bilirubin 1.50 H Direct Bilirubin 0.6 H AST 178 H ALT 111 H Alkaline Phosphatase Lactate Dehydrogenase C-Reactive Protein Total Protein Albumin 3.0 L Triglycerides Arterial Blood Glucose Arterial Blood Ionized Calcium Urine WBC (Auto) Coronavirus (PCR) Positive A SARS-CoV-2 IgG Ab Crossmatch 05/11/20 05/11/20 05/11/20 07:30 07:30 07:30 WBC RBC Hgb Hct MCV MCH MCHC RDW Lymph % (Auto) Lymph # (Auto) Seg Neutrophils % Seg Neuts % (Manual) Lymphocytes % (Manual) Nucleated RBC % Seg Neutrophils # Seg Neutrophils # Man Lymphocytes # (Manual) Monocytes # (Manual) PT INR APTT D-Dimer ABG pH POC ABG pCO2 POC ABG pO2 ABG pO2 ABG HCO3 ABG O2 Saturation ABG Base Excess ABG Hemoglobin ABG Oxyhemoglobin ABG Sodium ABG Potassium ABG Chloride ABG Glucose Oxyhemoglobin Sodium Potassium Chloride Carbon Dioxide BUN Creatinine Glucose POC Glucose Lactic Acid Calcium Magnesium Ferritin 14617.0 H Total Bilirubin Direct Bilirubin AST ALT Alkaline Phosphatase Lactate Dehydrogenase 1523 H C-Reactive Protein 12.90 H Total Protein Albumin Triglycerides Arterial Blood Glucose Arterial Blood Ionized Calcium Urine WBC (Auto) Coronavirus (PCR) SARS-CoV-2 IgG Ab Reactive A Crossmatch 05/13/20 05/13/20 05/15/20 05:20 05:20 08:15 WBC RBC Hgb Hct MCV MCH MCHC RDW Lymph % (Auto) Lymph # (Auto) Seg Neutrophils % Seg Neuts % (Manual) Lymphocytes % (Manual) Nucleated RBC % Seg Neutrophils # Seg Neutrophils # Man Lymphocytes # (Manual) Monocytes # (Manual) PT INR APTT D-Dimer > 41687 H 5318.28 H ABG pH POC ABG pCO2 POC ABG pO2 ABG pO2 ABG HCO3 ABG O2 Saturation ABG Base Excess ABG Hemoglobin ABG Oxyhemoglobin ABG Sodium ABG Potassium ABG Chloride ABG Glucose Oxyhemoglobin Sodium Potassium Chloride Carbon Dioxide 32 H BUN 30 H Creatinine Glucose 156 H POC Glucose Lactic Acid Calcium Magnesium 2.60 H Ferritin Total Bilirubin 1.40 H Direct Bilirubin AST 121 H ALT 119 H Alkaline Phosphatase Lactate Dehydrogenase 957 H C-Reactive Protein 4.00 H Total Protein Albumin 3.0 L Triglycerides Arterial Blood Glucose Arterial Blood Ionized Calcium Urine WBC (Auto) Coronavirus (PCR) SARS-CoV-2 IgG Ab Crossmatch 05/15/20 05/15/20 05/15/20 08:15 08:15 08:15 WBC 12.4 H RBC Hgb Hct MCV 98 H MCH 33 H MCHC RDW Lymph % (Auto) 9.7 L Lymph # (Auto) Seg Neutrophils % 86.8 H Seg Neuts % (Manual) Lymphocytes % (Manual) Nucleated RBC % Seg Neutrophils # 10.8 H Seg Neutrophils # Man Lymphocytes # (Manual) Monocytes # (Manual) PT INR APTT D-Dimer ABG pH POC ABG pCO2 POC ABG pO2 ABG pO2 ABG HCO3 ABG O2 Saturation ABG Base Excess ABG Hemoglobin ABG Oxyhemoglobin ABG Sodium ABG Potassium ABG Chloride ABG Glucose Oxyhemoglobin Sodium Potassium Chloride 94.8 L Carbon Dioxide 32 H BUN 22 H Creatinine Glucose 115 H POC Glucose Lactic Acid Calcium 8.3 L Magnesium Ferritin 2494.0 H Total Bilirubin Direct Bilirubin AST 73 H ALT 121 H Alkaline Phosphatase Lactate Dehydrogenase 835 H C-Reactive Protein 3.40 H Total Protein 6.1 L Albumin 3.0 L Triglycerides Arterial Blood Glucose Arterial Blood Ionized Calcium Urine WBC (Auto) Coronavirus (PCR) SARS-CoV-2 IgG Ab Crossmatch 05/17/20 05/17/20 05/17/20 05:50 05:50 05:50 WBC RBC Hgb Hct MCV MCH MCHC RDW Lymph % (Auto) Lymph # (Auto) Seg Neutrophils % Seg Neuts % (Manual) Lymphocytes % (Manual) Nucleated RBC % Seg Neutrophils # Seg Neutrophils # Man Lymphocytes # (Manual) Monocytes # (Manual) PT INR APTT D-Dimer 2911.42 H ABG pH POC ABG pCO2 POC ABG pO2 ABG pO2 ABG HCO3 ABG O2 Saturation ABG Base Excess ABG Hemoglobin ABG Oxyhemoglobin ABG Sodium ABG Potassium ABG Chloride ABG Glucose Oxyhemoglobin Sodium 136 L Potassium Chloride 96.0 L Carbon Dioxide 34 H BUN 22 H Creatinine Glucose 140 H POC Glucose Lactic Acid Calcium Magnesium Ferritin 2082.0 H Total Bilirubin Direct Bilirubin AST ALT 75 H Alkaline Phosphatase Lactate Dehydrogenase 601 H C-Reactive Protein 2.70 H Total Protein Albumin 2.9 L Triglycerides Arterial Blood Glucose Arterial Blood Ionized Calcium Urine WBC (Auto) Coronavirus (PCR) SARS-CoV-2 IgG Ab Crossmatch 05/17/20 05/18/20 05/20/20 05:50 12:22 08:16 WBC RBC Hgb Hct MCV 98 H MCH 33 H MCHC RDW Lymph % (Auto) 8.0 L Lymph # (Auto) 0.8 L Seg Neutrophils % 89.3 H Seg Neuts % (Manual) Lymphocytes % (Manual) Nucleated RBC % Seg Neutrophils # 8.8 H Seg Neutrophils # Man Lymphocytes # (Manual) Monocytes # (Manual) PT INR APTT D-Dimer 1887.82 H ABG pH POC ABG pCO2 POC ABG pO2 ABG pO2 ABG HCO3 ABG O2 Saturation ABG Base Excess ABG Hemoglobin ABG Oxyhemoglobin ABG Sodium ABG Potassium ABG Chloride ABG Glucose Oxyhemoglobin Sodium Potassium Chloride Carbon Dioxide BUN Creatinine Glucose POC Glucose 178 H Lactic Acid Calcium Magnesium Ferritin Total Bilirubin Direct Bilirubin AST ALT Alkaline Phosphatase Lactate Dehydrogenase C-Reactive Protein Total Protein Albumin Triglycerides Arterial Blood Glucose Arterial Blood Ionized Calcium Urine WBC (Auto) Coronavirus (PCR) SARS-CoV-2 IgG Ab Crossmatch 05/20/20 05/20/20 05/21/20 08:16 08:16 21:10 WBC RBC Hgb Hct MCV MCH MCHC RDW Lymph % (Auto) Lymph # (Auto) Seg Neutrophils % Seg Neuts % (Manual) Lymphocytes % (Manual) Nucleated RBC % Seg Neutrophils # Seg Neutrophils # Man Lymphocytes # (Manual) Monocytes # (Manual) PT INR APTT D-Dimer ABG pH 7.483 H POC ABG pCO2 POC ABG pO2 ABG pO2 50.0 L ABG HCO3 27.0 H ABG O2 Saturation 86.2 L ABG Base Excess 3.7 H ABG Hemoglobin ABG Oxyhemoglobin ABG Sodium ABG Potassium ABG Chloride ABG Glucose Oxyhemoglobin 84.2 L Sodium Potassium Chloride Carbon Dioxide BUN Creatinine Glucose POC Glucose Lactic Acid Calcium Magnesium Ferritin 1960.0 H Total Bilirubin Direct Bilirubin AST ALT Alkaline Phosphatase Lactate Dehydrogenase 705 H C-Reactive Protein 3.10 H Total Protein Albumin Triglycerides Arterial Blood Glucose Arterial Blood Ionized Calcium Urine WBC (Auto) Coronavirus (PCR) SARS-CoV-2 IgG Ab Crossmatch 05/22/20 05/22/20 05/22/20 04:01 07:53 07:53 WBC 19.2 H RBC Hgb Hct MCV 98 H MCH 34 H MCHC RDW Lymph % (Auto) Lymph # (Auto) Seg Neutrophils % Seg Neuts % (Manual) 96.0 H Lymphocytes % (Manual) 1.0 L Nucleated RBC % Seg Neutrophils # Seg Neutrophils # Man 18.4 H Lymphocytes # (Manual) 0.2 L Monocytes # (Manual) PT INR APTT D-Dimer ABG pH POC ABG pCO2 53.8 H POC ABG pO2 125.5 H ABG pO2 ABG HCO3 ABG O2 Saturation ABG Base Excess ABG Hemoglobin ABG Oxyhemoglobin ABG Sodium 131.8 L ABG Potassium 4.8 H ABG Chloride 94.0 L ABG Glucose 163 H Oxyhemoglobin Sodium 131 L Potassium Chloride 93.4 L Carbon Dioxide BUN 40 H Creatinine Glucose 176 H POC Glucose Lactic Acid Calcium Magnesium 2.70 H Ferritin Total Bilirubin 1.80 H Direct Bilirubin AST 45 H ALT 116 H Alkaline Phosphatase 181 H Lactate Dehydrogenase C-Reactive Protein Total Protein Albumin 2.6 L Triglycerides Arterial Blood Glucose 163 H Arterial Blood Ionized Calcium 4.5 L Urine WBC (Auto) Coronavirus (PCR) SARS-CoV-2 IgG Ab Crossmatch 05/23/20 05/24/20 05/24/20 04:17 03:07 04:08 WBC RBC Hgb Hct MCV MCH MCHC RDW Lymph % (Auto) Lymph # (Auto) Seg Neutrophils % Seg Neuts % (Manual) Lymphocytes % (Manual) Nucleated RBC % Seg Neutrophils # Seg Neutrophils # Man Lymphocytes # (Manual) Monocytes # (Manual) PT INR APTT D-Dimer ABG pH 7.328 L POC ABG pCO2 POC ABG pO2 ABG pO2 72.8 L 73.4 L ABG HCO3 31.0 H 34.0 H ABG O2 Saturation 93.5 L ABG Base Excess 3.5 H 7.7 H ABG Hemoglobin 13.3 L 12.1 L ABG Oxyhemoglobin ABG Sodium ABG Potassium ABG Chloride ABG Glucose Oxyhemoglobin 91.5 L 94.3 L Sodium Potassium Chloride Carbon Dioxide BUN Creatinine Glucose POC Glucose 155 H Lactic Acid Calcium Magnesium Ferritin Total Bilirubin Direct Bilirubin AST ALT Alkaline Phosphatase Lactate Dehydrogenase C-Reactive Protein Total Protein Albumin Triglycerides Arterial Blood Glucose Arterial Blood Ionized Calcium Urine WBC (Auto) Coronavirus (PCR) SARS-CoV-2 IgG Ab Crossmatch 05/24/20 05/24/20 05/24/20 09:33 12:21 17:52 WBC RBC Hgb Hct MCV MCH MCHC RDW Lymph % (Auto) Lymph # (Auto) Seg Neutrophils % Seg Neuts % (Manual) Lymphocytes % (Manual) Nucleated RBC % Seg Neutrophils # Seg Neutrophils # Man Lymphocytes # (Manual) Monocytes # (Manual) PT INR APTT D-Dimer ABG pH POC ABG pCO2 POC ABG pO2 ABG pO2 ABG HCO3 ABG O2 Saturation ABG Base Excess ABG Hemoglobin ABG Oxyhemoglobin ABG Sodium ABG Potassium ABG Chloride ABG Glucose Oxyhemoglobin Sodium Potassium Chloride Carbon Dioxide 34 H D BUN 28 H Creatinine 0.7 L Glucose 168 H POC Glucose 173 H 164 H Lactic Acid Calcium Magnesium Ferritin Total Bilirubin Direct Bilirubin AST ALT Alkaline Phosphatase Lactate Dehydrogenase C-Reactive Protein Total Protein Albumin Triglycerides Arterial Blood Glucose Arterial Blood Ionized Calcium Urine WBC (Auto) Coronavirus (PCR) SARS-CoV-2 IgG Ab Crossmatch 05/24/20 05/25/20 05/25/20 23:47 04:29 05:46 WBC RBC Hgb Hct MCV MCH MCHC RDW Lymph % (Auto) Lymph # (Auto) Seg Neutrophils % Seg Neuts % (Manual) Lymphocytes % (Manual) Nucleated RBC % Seg Neutrophils # Seg Neutrophils # Man Lymphocytes # (Manual) Monocytes # (Manual) PT INR APTT D-Dimer ABG pH POC ABG pCO2 68.6 H POC ABG pO2 ABG pO2 ABG HCO3 ABG O2 Saturation ABG Base Excess ABG Hemoglobin ABG Oxyhemoglobin ABG Sodium ABG Potassium 4.7 H ABG Chloride ABG Glucose 226 H Oxyhemoglobin Sodium Potassium Chloride Carbon Dioxide BUN Creatinine Glucose POC Glucose 171 H 201 H Lactic Acid Calcium Magnesium Ferritin Total Bilirubin Direct Bilirubin AST ALT Alkaline Phosphatase Lactate Dehydrogenase C-Reactive Protein Total Protein Albumin Triglycerides Arterial Blood Glucose 226 H Arterial Blood Ionized Calcium Urine WBC (Auto) Coronavirus (PCR) SARS-CoV-2 IgG Ab Crossmatch 05/25/20 05/25/20 05/25/20 08:37 08:37 12:38 WBC 12.0 H RBC 3.64 L Hgb Hct MCV 99 H MCH 33 H MCHC RDW Lymph % (Auto) Lymph # (Auto) Seg Neutrophils % Seg Neuts % (Manual) Lymphocytes % (Manual) Nucleated RBC % Seg Neutrophils # Seg Neutrophils # Man Lymphocytes # (Manual) Monocytes # (Manual) PT INR APTT D-Dimer ABG pH POC ABG pCO2 POC ABG pO2 ABG pO2 ABG HCO3 ABG O2 Saturation ABG Base Excess ABG Hemoglobin ABG Oxyhemoglobin ABG Sodium ABG Potassium ABG Chloride ABG Glucose Oxyhemoglobin Sodium Potassium Chloride 97.3 L Carbon Dioxide 35 H BUN 25 H Creatinine 0.7 L Glucose 191 H POC Glucose 182 H Lactic Acid Calcium Magnesium Ferritin Total Bilirubin Direct Bilirubin AST ALT Alkaline Phosphatase Lactate Dehydrogenase C-Reactive Protein Total Protein Albumin Triglycerides Arterial Blood Glucose Arterial Blood Ionized Calcium Urine WBC (Auto) Coronavirus (PCR) SARS-CoV-2 IgG Ab Crossmatch 05/25/20 05/26/20 05/26/20 18:16 00:06 04:50 WBC RBC Hgb Hct MCV MCH MCHC RDW Lymph % (Auto) Lymph # (Auto) Seg Neutrophils % Seg Neuts % (Manual) Lymphocytes % (Manual) Nucleated RBC % Seg Neutrophils # Seg Neutrophils # Man Lymphocytes # (Manual) Monocytes # (Manual) PT INR APTT D-Dimer ABG pH POC ABG pCO2 POC ABG pO2 ABG pO2 221.5 H ABG HCO3 40.4 H ABG O2 Saturation 99.3 H ABG Base Excess 12.8 H ABG Hemoglobin 10.4 L ABG Oxyhemoglobin ABG Sodium ABG Potassium ABG Chloride ABG Glucose Oxyhemoglobin Sodium Potassium Chloride Carbon Dioxide BUN Creatinine Glucose POC Glucose 176 H 152 H Lactic Acid Calcium Magnesium Ferritin Total Bilirubin Direct Bilirubin AST ALT Alkaline Phosphatase Lactate Dehydrogenase C-Reactive Protein Total Protein Albumin Triglycerides Arterial Blood Glucose Arterial Blood Ionized Calcium Urine WBC (Auto) Coronavirus (PCR) SARS-CoV-2 IgG Ab Crossmatch 05/26/20 05/26/20 05/26/20 06:11 07:51 07:51 WBC 13.4 H RBC 3.64 L Hgb Hct MCV 98 H MCH 33 H MCHC RDW Lymph % (Auto) Lymph # (Auto) Seg Neutrophils % Seg Neuts % (Manual) Lymphocytes % (Manual) Nucleated RBC % Seg Neutrophils # Seg Neutrophils # Man Lymphocytes # (Manual) Monocytes # (Manual) PT INR APTT D-Dimer ABG pH POC ABG pCO2 POC ABG pO2 ABG pO2 ABG HCO3 ABG O2 Saturation ABG Base Excess ABG Hemoglobin ABG Oxyhemoglobin ABG Sodium ABG Potassium ABG Chloride ABG Glucose Oxyhemoglobin Sodium Potassium Chloride 96.6 L Carbon Dioxide 39 H BUN 29 H Creatinine 0.7 L Glucose 174 H POC Glucose 165 H Lactic Acid Calcium Magnesium Ferritin Total Bilirubin Direct Bilirubin AST ALT Alkaline Phosphatase Lactate Dehydrogenase C-Reactive Protein Total Protein Albumin Triglycerides Arterial Blood Glucose Arterial Blood Ionized Calcium Urine WBC (Auto) Coronavirus (PCR) SARS-CoV-2 IgG Ab Crossmatch 05/26/20 05/27/20 05/27/20 23:23 03:43 05:29 WBC RBC Hgb Hct MCV MCH MCHC RDW Lymph % (Auto) Lymph # (Auto) Seg Neutrophils % Seg Neuts % (Manual) Lymphocytes % (Manual) Nucleated RBC % Seg Neutrophils # Seg Neutrophils # Man Lymphocytes # (Manual) Monocytes # (Manual) PT INR APTT D-Dimer ABG pH 7.480 H POC ABG pCO2 52.4 H POC ABG pO2 61.4 L ABG pO2 ABG HCO3 ABG O2 Saturation ABG Base Excess ABG Hemoglobin ABG Oxyhemoglobin ABG Sodium 134.9 L ABG Potassium ABG Chloride 95.0 L ABG Glucose 221 H Oxyhemoglobin Sodium Potassium Chloride Carbon Dioxide BUN Creatinine Glucose POC Glucose 169 H 227 H Lactic Acid Calcium Magnesium Ferritin Total Bilirubin Direct Bilirubin AST ALT Alkaline Phosphatase Lactate Dehydrogenase C-Reactive Protein Total Protein Albumin Triglycerides Arterial Blood Glucose 221 H Arterial Blood Ionized Calcium 4.5 L Urine WBC (Auto) Coronavirus (PCR) SARS-CoV-2 IgG Ab Crossmatch 05/27/20 05/27/20 05/27/20 07:19 12:18 13:50 WBC RBC Hgb Hct MCV MCH MCHC RDW Lymph % (Auto) Lymph # (Auto) Seg Neutrophils % Seg Neuts % (Manual) Lymphocytes % (Manual) Nucleated RBC % Seg Neutrophils # Seg Neutrophils # Man Lymphocytes # (Manual) Monocytes # (Manual) PT INR APTT D-Dimer ABG pH POC ABG pCO2 POC ABG pO2 ABG pO2 ABG HCO3 ABG O2 Saturation ABG Base Excess ABG Hemoglobin ABG Oxyhemoglobin ABG Sodium ABG Potassium ABG Chloride ABG Glucose Oxyhemoglobin Sodium Potassium Chloride Carbon Dioxide BUN Creatinine Glucose POC Glucose 114 H 148 H Lactic Acid Calcium Magnesium Ferritin Total Bilirubin Direct Bilirubin AST ALT Alkaline Phosphatase Lactate Dehydrogenase C-Reactive Protein Total Protein Albumin Triglycerides 247 H Arterial Blood Glucose Arterial Blood Ionized Calcium Urine WBC (Auto) Coronavirus (PCR) SARS-CoV-2 IgG Ab Crossmatch 05/28/20 05/28/20 05/28/20 00:13 04:16 05:22 WBC RBC Hgb Hct MCV MCH MCHC RDW Lymph % (Auto) Lymph # (Auto) Seg Neutrophils % Seg Neuts % (Manual) Lymphocytes % (Manual) Nucleated RBC % Seg Neutrophils # Seg Neutrophils # Man Lymphocytes # (Manual) Monocytes # (Manual) PT INR APTT D-Dimer ABG pH POC ABG pCO2 64.4 H POC ABG pO2 60.5 L ABG pO2 ABG HCO3 ABG O2 Saturation ABG Base Excess ABG Hemoglobin ABG Oxyhemoglobin ABG Sodium ABG Potassium ABG Chloride 95.0 L ABG Glucose 209 H Oxyhemoglobin Sodium Potassium Chloride Carbon Dioxide BUN Creatinine Glucose POC Glucose 155 H 186 H Lactic Acid Calcium Magnesium Ferritin Total Bilirubin Direct Bilirubin AST ALT Alkaline Phosphatase Lactate Dehydrogenase C-Reactive Protein Total Protein Albumin Triglycerides Arterial Blood Glucose 209 H Arterial Blood Ionized Calcium Urine WBC (Auto) Coronavirus (PCR) SARS-CoV-2 IgG Ab Crossmatch 05/28/20 05/28/20 05/29/20 12:45 17:39 00:37 WBC RBC Hgb Hct MCV MCH MCHC RDW Lymph % (Auto) Lymph # (Auto) Seg Neutrophils % Seg Neuts % (Manual) Lymphocytes % (Manual) Nucleated RBC % Seg Neutrophils # Seg Neutrophils # Man Lymphocytes # (Manual) Monocytes # (Manual) PT INR APTT D-Dimer ABG pH POC ABG pCO2 POC ABG pO2 ABG pO2 ABG HCO3 ABG O2 Saturation ABG Base Excess ABG Hemoglobin ABG Oxyhemoglobin ABG Sodium ABG Potassium ABG Chloride ABG Glucose Oxyhemoglobin Sodium Potassium Chloride Carbon Dioxide BUN Creatinine Glucose POC Glucose 143 H 164 H 221 H Lactic Acid Calcium Magnesium Ferritin Total Bilirubin Direct Bilirubin AST ALT Alkaline Phosphatase Lactate Dehydrogenase C-Reactive Protein Total Protein Albumin Triglycerides Arterial Blood Glucose Arterial Blood Ionized Calcium Urine WBC (Auto) Coronavirus (PCR) SARS-CoV-2 IgG Ab Crossmatch 05/29/20 05/29/20 05/29/20 04:15 05:33 12:34 WBC RBC Hgb Hct MCV MCH MCHC RDW Lymph % (Auto) Lymph # (Auto) Seg Neutrophils % Seg Neuts % (Manual) Lymphocytes % (Manual) Nucleated RBC % Seg Neutrophils # Seg Neutrophils # Man Lymphocytes # (Manual) Monocytes # (Manual) PT INR APTT D-Dimer ABG pH 7.463 H POC ABG pCO2 56.3 H POC ABG pO2 81.2 L ABG pO2 ABG HCO3 ABG O2 Saturation ABG Base Excess ABG Hemoglobin ABG Oxyhemoglobin ABG Sodium ABG Potassium ABG Chloride 96.0 L ABG Glucose 194 H Oxyhemoglobin Sodium Potassium Chloride Carbon Dioxide BUN Creatinine Glucose POC Glucose 133 H 221 H Lactic Acid Calcium Magnesium Ferritin Total Bilirubin Direct Bilirubin AST ALT Alkaline Phosphatase Lactate Dehydrogenase C-Reactive Protein Total Protein Albumin Triglycerides Arterial Blood Glucose 194 H Arterial Blood Ionized Calcium 4.5 L Urine WBC (Auto) Coronavirus (PCR) SARS-CoV-2 IgG Ab Crossmatch 05/29/20 05/30/20 05/30/20 18:07 00:12 05:38 WBC RBC Hgb Hct MCV MCH MCHC RDW Lymph % (Auto) Lymph # (Auto) Seg Neutrophils % Seg Neuts % (Manual) Lymphocytes % (Manual) Nucleated RBC % Seg Neutrophils # Seg Neutrophils # Man Lymphocytes # (Manual) Monocytes # (Manual) PT INR APTT D-Dimer ABG pH POC ABG pCO2 POC ABG pO2 ABG pO2 ABG HCO3 ABG O2 Saturation ABG Base Excess ABG Hemoglobin ABG Oxyhemoglobin ABG Sodium ABG Potassium ABG Chloride ABG Glucose Oxyhemoglobin Sodium Potassium Chloride Carbon Dioxide BUN Creatinine Glucose POC Glucose 162 H 190 H 208 H Lactic Acid Calcium Magnesium Ferritin Total Bilirubin Direct Bilirubin AST ALT Alkaline Phosphatase Lactate Dehydrogenase C-Reactive Protein Total Protein Albumin Triglycerides Arterial Blood Glucose Arterial Blood Ionized Calcium Urine WBC (Auto) Coronavirus (PCR) SARS-CoV-2 IgG Ab Crossmatch 05/30/20 05/30/20 05/30/20 09:30 11:35 11:54 WBC 12.4 H RBC 3.48 L Hgb 11.3 L Hct 34.6 L MCV 99 H MCH 33 H MCHC RDW Lymph % (Auto) Lymph # (Auto) Seg Neutrophils % Seg Neuts % (Manual) Lymphocytes % (Manual) Nucleated RBC % Seg Neutrophils # Seg Neutrophils # Man Lymphocytes # (Manual) Monocytes # (Manual) PT INR APTT D-Dimer ABG pH 7.455 H POC ABG pCO2 57.5 H POC ABG pO2 81.5 L ABG pO2 ABG HCO3 ABG O2 Saturation ABG Base Excess ABG Hemoglobin ABG Oxyhemoglobin ABG Sodium ABG Potassium ABG Chloride 96.0 L ABG Glucose 204 H Oxyhemoglobin Sodium Potassium Chloride Carbon Dioxide BUN Creatinine Glucose POC Glucose 183 H Lactic Acid Calcium Magnesium Ferritin Total Bilirubin Direct Bilirubin AST ALT Alkaline Phosphatase Lactate Dehydrogenase C-Reactive Protein Total Protein Albumin Triglycerides Arterial Blood Glucose 204 H Arterial Blood Ionized Calcium Urine WBC (Auto) Coronavirus (PCR) SARS-CoV-2 IgG Ab Crossmatch 05/30/20 05/31/20 05/31/20 18:01 00:10 03:22 WBC RBC Hgb Hct MCV MCH MCHC RDW Lymph % (Auto) Lymph # (Auto) Seg Neutrophils % Seg Neuts % (Manual) Lymphocytes % (Manual) Nucleated RBC % Seg Neutrophils # Seg Neutrophils # Man Lymphocytes # (Manual) Monocytes # (Manual) PT INR APTT D-Dimer ABG pH POC ABG pCO2 60.4 H POC ABG pO2 71.5 L ABG pO2 ABG HCO3 ABG O2 Saturation ABG Base Excess ABG Hemoglobin ABG Oxyhemoglobin ABG Sodium ABG Potassium ABG Chloride 96.0 L ABG Glucose 169 H Oxyhemoglobin Sodium Potassium Chloride Carbon Dioxide BUN Creatinine Glucose POC Glucose 184 H 135 H Lactic Acid Calcium Magnesium Ferritin Total Bilirubin Direct Bilirubin AST ALT Alkaline Phosphatase Lactate Dehydrogenase C-Reactive Protein Total Protein Albumin Triglycerides Arterial Blood Glucose 169 H Arterial Blood Ionized Calcium 4.5 L Urine WBC (Auto) Coronavirus (PCR) SARS-CoV-2 IgG Ab Crossmatch 05/31/20 05/31/20 05/31/20 05:24 11:18 14:41 WBC RBC Hgb Hct MCV MCH MCHC RDW Lymph % (Auto) Lymph # (Auto) Seg Neutrophils % Seg Neuts % (Manual) Lymphocytes % (Manual) Nucleated RBC % Seg Neutrophils # Seg Neutrophils # Man Lymphocytes # (Manual) Monocytes # (Manual) PT INR APTT D-Dimer ABG pH POC ABG pCO2 POC ABG pO2 ABG pO2 ABG HCO3 ABG O2 Saturation ABG Base Excess ABG Hemoglobin ABG Oxyhemoglobin ABG Sodium ABG Potassium ABG Chloride ABG Glucose Oxyhemoglobin Sodium Potassium Chloride 96.8 L Carbon Dioxide 37 H BUN 31 H Creatinine 0.6 L Glucose 213 H POC Glucose 164 H 208 H Lactic Acid Calcium Magnesium Ferritin Total Bilirubin Direct Bilirubin AST ALT Alkaline Phosphatase Lactate Dehydrogenase C-Reactive Protein Total Protein Albumin Triglycerides Arterial Blood Glucose Arterial Blood Ionized Calcium Urine WBC (Auto) Coronavirus (PCR) SARS-CoV-2 IgG Ab Crossmatch 05/31/20 05/31/20 06/01/20 17:37 23:47 03:48 WBC RBC Hgb Hct MCV MCH MCHC RDW Lymph % (Auto) Lymph # (Auto) Seg Neutrophils % Seg Neuts % (Manual) Lymphocytes % (Manual) Nucleated RBC % Seg Neutrophils # Seg Neutrophils # Man Lymphocytes # (Manual) Monocytes # (Manual) PT INR APTT D-Dimer ABG pH POC ABG pCO2 59.7 H POC ABG pO2 73.9 L ABG pO2 ABG HCO3 ABG O2 Saturation ABG Base Excess ABG Hemoglobin ABG Oxyhemoglobin ABG Sodium ABG Potassium ABG Chloride 95.0 L ABG Glucose 256 H Oxyhemoglobin Sodium Potassium Chloride Carbon Dioxide BUN Creatinine Glucose POC Glucose 168 H 178 H Lactic Acid Calcium Magnesium Ferritin Total Bilirubin Direct Bilirubin AST ALT Alkaline Phosphatase Lactate Dehydrogenase C-Reactive Protein Total Protein Albumin Triglycerides Arterial Blood Glucose 256 H Arterial Blood Ionized Calcium Urine WBC (Auto) Coronavirus (PCR) SARS-CoV-2 IgG Ab Crossmatch 06/01/20 06/01/20 06/01/20 05:01 07:47 07:47 WBC 14.4 H RBC 3.46 L Hgb 11.1 L Hct 34.3 L MCV 99 H MCH MCHC RDW Lymph % (Auto) Lymph # (Auto) Seg Neutrophils % Seg Neuts % (Manual) 86.0 H Lymphocytes % (Manual) 9.0 L Nucleated RBC % Seg Neutrophils # Seg Neutrophils # Man 12.4 H Lymphocytes # (Manual) Monocytes # (Manual) PT INR APTT D-Dimer ABG pH POC ABG pCO2 POC ABG pO2 ABG pO2 ABG HCO3 ABG O2 Saturation ABG Base Excess ABG Hemoglobin ABG Oxyhemoglobin ABG Sodium ABG Potassium ABG Chloride ABG Glucose Oxyhemoglobin Sodium Potassium Chloride Carbon Dioxide BUN Creatinine Glucose POC Glucose 197 H Lactic Acid Calcium Magnesium Ferritin Total Bilirubin Direct Bilirubin AST ALT Alkaline Phosphatase Lactate Dehydrogenase C-Reactive Protein Total Protein Albumin Triglycerides 244 H Arterial Blood Glucose Arterial Blood Ionized Calcium Urine WBC (Auto) Coronavirus (PCR) SARS-CoV-2 IgG Ab Crossmatch 06/01/20 06/01/20 06/01/20 07:47 11:46 18:15 WBC RBC Hgb Hct MCV MCH MCHC RDW Lymph % (Auto) Lymph # (Auto) Seg Neutrophils % Seg Neuts % (Manual) Lymphocytes % (Manual) Nucleated RBC % Seg Neutrophils # Seg Neutrophils # Man Lymphocytes # (Manual) Monocytes # (Manual) PT INR APTT D-Dimer ABG pH POC ABG pCO2 POC ABG pO2 ABG pO2 ABG HCO3 ABG O2 Saturation ABG Base Excess ABG Hemoglobin ABG Oxyhemoglobin ABG Sodium ABG Potassium ABG Chloride ABG Glucose Oxyhemoglobin Sodium Potassium Chloride 95.4 L Carbon Dioxide 35 H BUN 30 H Creatinine 0.5 L Glucose 214 H POC Glucose 181 H 221 H Lactic Acid Calcium Magnesium Ferritin Total Bilirubin Direct Bilirubin AST 54 H ALT 235 H Alkaline Phosphatase Lactate Dehydrogenase C-Reactive Protein Total Protein Albumin 2.9 L Triglycerides Arterial Blood Glucose Arterial Blood Ionized Calcium Urine WBC (Auto) Coronavirus (PCR) SARS-CoV-2 IgG Ab Crossmatch 06/01/20 06/02/20 06/02/20 23:12 04:00 05:31 WBC RBC Hgb Hct MCV MCH MCHC RDW Lymph % (Auto) Lymph # (Auto) Seg Neutrophils % Seg Neuts % (Manual) Lymphocytes % (Manual) Nucleated RBC % Seg Neutrophils # Seg Neutrophils # Man Lymphocytes # (Manual) Monocytes # (Manual) PT INR APTT D-Dimer ABG pH 7.465 H POC ABG pCO2 POC ABG pO2 ABG pO2 203.4 H ABG HCO3 41.2 H ABG O2 Saturation 99.3 H ABG Base Excess 15.1 H ABG Hemoglobin 11.5 L ABG Oxyhemoglobin ABG Sodium ABG Potassium ABG Chloride ABG Glucose Oxyhemoglobin Sodium Potassium Chloride Carbon Dioxide BUN Creatinine Glucose POC Glucose 197 H 184 H Lactic Acid Calcium Magnesium Ferritin Total Bilirubin Direct Bilirubin AST ALT Alkaline Phosphatase Lactate Dehydrogenase C-Reactive Protein Total Protein Albumin Triglycerides Arterial Blood Glucose Arterial Blood Ionized Calcium Urine WBC (Auto) Coronavirus (PCR) SARS-CoV-2 IgG Ab Crossmatch 06/02/20 06/02/20 06/02/20 11:49 18:06 23:00 WBC RBC Hgb Hct MCV MCH MCHC RDW Lymph % (Auto) Lymph # (Auto) Seg Neutrophils % Seg Neuts % (Manual) Lymphocytes % (Manual) Nucleated RBC % Seg Neutrophils # Seg Neutrophils # Man Lymphocytes # (Manual) Monocytes # (Manual) PT INR APTT D-Dimer ABG pH POC ABG pCO2 POC ABG pO2 ABG pO2 ABG HCO3 ABG O2 Saturation ABG Base Excess ABG Hemoglobin ABG Oxyhemoglobin ABG Sodium ABG Potassium ABG Chloride ABG Glucose Oxyhemoglobin Sodium Potassium Chloride Carbon Dioxide BUN Creatinine Glucose POC Glucose 195 H 177 H 228 H Lactic Acid Calcium Magnesium Ferritin Total Bilirubin Direct Bilirubin AST ALT Alkaline Phosphatase Lactate Dehydrogenase C-Reactive Protein Total Protein Albumin Triglycerides Arterial Blood Glucose Arterial Blood Ionized Calcium Urine WBC (Auto) Coronavirus (PCR) SARS-CoV-2 IgG Ab Crossmatch 06/03/20 06/03/20 06/03/20 03:58 05:19 12:21 WBC RBC Hgb Hct MCV MCH MCHC RDW Lymph % (Auto) Lymph # (Auto) Seg Neutrophils % Seg Neuts % (Manual) Lymphocytes % (Manual) Nucleated RBC % Seg Neutrophils # Seg Neutrophils # Man Lymphocytes # (Manual) Monocytes # (Manual) PT INR APTT D-Dimer ABG pH POC ABG pCO2 POC ABG pO2 ABG pO2 171.0 H ABG HCO3 42.8 H ABG O2 Saturation ABG Base Excess 15.6 H ABG Hemoglobin 12.3 L ABG Oxyhemoglobin ABG Sodium ABG Potassium ABG Chloride ABG Glucose Oxyhemoglobin Sodium Potassium Chloride Carbon Dioxide BUN Creatinine Glucose POC Glucose 122 H 207 H Lactic Acid Calcium Magnesium Ferritin Total Bilirubin Direct Bilirubin AST ALT Alkaline Phosphatase Lactate Dehydrogenase C-Reactive Protein Total Protein Albumin Triglycerides Arterial Blood Glucose Arterial Blood Ionized Calcium Urine WBC (Auto) Coronavirus (PCR) SARS-CoV-2 IgG Ab Crossmatch 06/03/20 06/03/20 06/04/20 17:27 23:50 03:55 WBC RBC Hgb Hct MCV MCH MCHC RDW Lymph % (Auto) Lymph # (Auto) Seg Neutrophils % Seg Neuts % (Manual) Lymphocytes % (Manual) Nucleated RBC % Seg Neutrophils # Seg Neutrophils # Man Lymphocytes # (Manual) Monocytes # (Manual) PT INR APTT D-Dimer ABG pH POC ABG pCO2 POC ABG pO2 ABG pO2 117.2 H ABG HCO3 42.4 H ABG O2 Saturation ABG Base Excess 15.3 H ABG Hemoglobin 10.5 L ABG Oxyhemoglobin ABG Sodium ABG Potassium ABG Chloride ABG Glucose Oxyhemoglobin Sodium Potassium Chloride Carbon Dioxide BUN Creatinine Glucose POC Glucose 157 H 214 H Lactic Acid Calcium Magnesium Ferritin Total Bilirubin Direct Bilirubin AST ALT Alkaline Phosphatase Lactate Dehydrogenase C-Reactive Protein Total Protein Albumin Triglycerides Arterial Blood Glucose Arterial Blood Ionized Calcium Urine WBC (Auto) Coronavirus (PCR) SARS-CoV-2 IgG Ab Crossmatch 06/04/20 06/04/20 06/04/20 05:49 11:41 17:30 WBC RBC Hgb Hct MCV MCH MCHC RDW Lymph % (Auto) Lymph # (Auto) Seg Neutrophils % Seg Neuts % (Manual) Lymphocytes % (Manual) Nucleated RBC % Seg Neutrophils # Seg Neutrophils # Man Lymphocytes # (Manual) Monocytes # (Manual) PT INR APTT D-Dimer ABG pH POC ABG pCO2 POC ABG pO2 ABG pO2 ABG HCO3 ABG O2 Saturation ABG Base Excess ABG Hemoglobin ABG Oxyhemoglobin ABG Sodium ABG Potassium ABG Chloride ABG Glucose Oxyhemoglobin Sodium Potassium Chloride Carbon Dioxide BUN Creatinine Glucose POC Glucose 149 H 233 H 156 H Lactic Acid Calcium Magnesium Ferritin Total Bilirubin Direct Bilirubin AST ALT Alkaline Phosphatase Lactate Dehydrogenase C-Reactive Protein Total Protein Albumin Triglycerides Arterial Blood Glucose Arterial Blood Ionized Calcium Urine WBC (Auto) Coronavirus (PCR) SARS-CoV-2 IgG Ab Crossmatch 06/04/20 06/04/20 06/04/20 19:01 20:53 23:41 WBC RBC 3.18 L Hgb 10.8 L Hct 31.8 L MCV 100 H MCH 34 H MCHC RDW Lymph % (Auto) Lymph # (Auto) Seg Neutrophils % Seg Neuts % (Manual) 86.0 H Lymphocytes % (Manual) 10.0 L Nucleated RBC % 1.0 H Seg Neutrophils # Seg Neutrophils # Man 8.5 H Lymphocytes # (Manual) 1.0 L Monocytes # (Manual) PT INR APTT D-Dimer ABG pH POC ABG pCO2 POC ABG pO2 ABG pO2 ABG HCO3 ABG O2 Saturation ABG Base Excess ABG Hemoglobin ABG Oxyhemoglobin ABG Sodium ABG Potassium ABG Chloride ABG Glucose Oxyhemoglobin Sodium Potassium 3.4 L D Chloride 96.5 L Carbon Dioxide 41 H* BUN 27 H Creatinine 0.5 L Glucose 173 H POC Glucose 217 H Lactic Acid Calcium Magnesium Ferritin Total Bilirubin Direct Bilirubin AST ALT Alkaline Phosphatase Lactate Dehydrogenase C-Reactive Protein Total Protein Albumin Triglycerides Arterial Blood Glucose Arterial Blood Ionized Calcium Urine WBC (Auto) Coronavirus (PCR) SARS-CoV-2 IgG Ab Crossmatch 06/05/20 06/05/20 06/05/20 06:05 11:54 12:35 WBC RBC Hgb Hct MCV MCH MCHC RDW Lymph % (Auto) Lymph # (Auto) Seg Neutrophils % Seg Neuts % (Manual) Lymphocytes % (Manual) Nucleated RBC % Seg Neutrophils # Seg Neutrophils # Man Lymphocytes # (Manual) Monocytes # (Manual) PT INR APTT D-Dimer ABG pH POC ABG pCO2 POC ABG pO2 ABG pO2 127.9 H ABG HCO3 41.1 H ABG O2 Saturation ABG Base Excess 13.0 H ABG Hemoglobin 13.4 L ABG Oxyhemoglobin ABG Sodium ABG Potassium ABG Chloride ABG Glucose Oxyhemoglobin Sodium Potassium Chloride Carbon Dioxide BUN Creatinine Glucose POC Glucose 137 H 211 H Lactic Acid Calcium Magnesium Ferritin Total Bilirubin Direct Bilirubin AST ALT Alkaline Phosphatase Lactate Dehydrogenase C-Reactive Protein Total Protein Albumin Triglycerides Arterial Blood Glucose Arterial Blood Ionized Calcium Urine WBC (Auto) Coronavirus (PCR) SARS-CoV-2 IgG Ab Crossmatch 06/05/20 06/05/20 06/06/20 17:03 23:49 04:42 WBC RBC Hgb Hct MCV MCH MCHC RDW Lymph % (Auto) Lymph # (Auto) Seg Neutrophils % Seg Neuts % (Manual) Lymphocytes % (Manual) Nucleated RBC % Seg Neutrophils # Seg Neutrophils # Man Lymphocytes # (Manual) Monocytes # (Manual) PT INR APTT D-Dimer ABG pH POC ABG pCO2 56.1 H POC ABG pO2 52.5 L ABG pO2 ABG HCO3 ABG O2 Saturation ABG Base Excess ABG Hemoglobin 11.7 L ABG Oxyhemoglobin ABG Sodium ABG Potassium 3.3 L ABG Chloride 95.0 L ABG Glucose 156 H Oxyhemoglobin Sodium Potassium Chloride Carbon Dioxide BUN Creatinine Glucose POC Glucose 159 H 194 H Lactic Acid Calcium Magnesium Ferritin Total Bilirubin Direct Bilirubin AST ALT Alkaline Phosphatase Lactate Dehydrogenase C-Reactive Protein Total Protein Albumin Triglycerides Arterial Blood Glucose 156 H Arterial Blood Ionized Calcium Urine WBC (Auto) Coronavirus (PCR) SARS-CoV-2 IgG Ab Crossmatch 06/06/20 06/06/20 06/06/20 05:57 12:06 17:38 WBC RBC Hgb Hct MCV MCH MCHC RDW Lymph % (Auto) Lymph # (Auto) Seg Neutrophils % Seg Neuts % (Manual) Lymphocytes % (Manual) Nucleated RBC % Seg Neutrophils # Seg Neutrophils # Man Lymphocytes # (Manual) Monocytes # (Manual) PT INR APTT D-Dimer ABG pH POC ABG pCO2 POC ABG pO2 ABG pO2 ABG HCO3 ABG O2 Saturation ABG Base Excess ABG Hemoglobin ABG Oxyhemoglobin ABG Sodium ABG Potassium ABG Chloride ABG Glucose Oxyhemoglobin Sodium Potassium Chloride Carbon Dioxide BUN Creatinine Glucose POC Glucose 144 H 230 H 162 H Lactic Acid Calcium Magnesium Ferritin Total Bilirubin Direct Bilirubin AST ALT Alkaline Phosphatase Lactate Dehydrogenase C-Reactive Protein Total Protein Albumin Triglycerides Arterial Blood Glucose Arterial Blood Ionized Calcium Urine WBC (Auto) Coronavirus (PCR) SARS-CoV-2 IgG Ab Crossmatch 06/06/20 06/07/20 06/07/20 23:50 04:34 06:03 WBC RBC Hgb Hct MCV MCH MCHC RDW Lymph % (Auto) Lymph # (Auto) Seg Neutrophils % Seg Neuts % (Manual) Lymphocytes % (Manual) Nucleated RBC % Seg Neutrophils # Seg Neutrophils # Man Lymphocytes # (Manual) Monocytes # (Manual) PT INR APTT D-Dimer ABG pH 7.511 H POC ABG pCO2 53.5 H POC ABG pO2 114.5 H ABG pO2 ABG HCO3 ABG O2 Saturation ABG Base Excess ABG Hemoglobin 9.4 L ABG Oxyhemoglobin ABG Sodium 134.5 L ABG Potassium ABG Chloride 94.0 L ABG Glucose 186 H Oxyhemoglobin Sodium Potassium Chloride Carbon Dioxide BUN Creatinine Glucose POC Glucose 181 H 155 H Lactic Acid Calcium Magnesium Ferritin Total Bilirubin Direct Bilirubin AST ALT Alkaline Phosphatase Lactate Dehydrogenase C-Reactive Protein Total Protein Albumin Triglycerides Arterial Blood Glucose 186 H Arterial Blood Ionized Calcium 4.5 L Urine WBC (Auto) Coronavirus (PCR) SARS-CoV-2 IgG Ab Crossmatch 06/07/20 06/07/20 06/07/20 13:41 14:58 14:58 WBC RBC 2.72 L Hgb 9.3 L Hct 27.2 L MCV 100 H MCH 34 H MCHC RDW Lymph % (Auto) Lymph # (Auto) Seg Neutrophils % Seg Neuts % (Manual) Lymphocytes % (Manual) Nucleated RBC % Seg Neutrophils # Seg Neutrophils # Man Lymphocytes # (Manual) Monocytes # (Manual) PT INR APTT D-Dimer ABG pH POC ABG pCO2 POC ABG pO2 ABG pO2 ABG HCO3 ABG O2 Saturation ABG Base Excess ABG Hemoglobin ABG Oxyhemoglobin ABG Sodium ABG Potassium ABG Chloride ABG Glucose Oxyhemoglobin Sodium Potassium Chloride 93.5 L Carbon Dioxide 39 H BUN 22 H Creatinine 0.4 L Glucose 188 H POC Glucose 201 H Lactic Acid Calcium Magnesium Ferritin Total Bilirubin Direct Bilirubin AST 61 H ALT 273 H Alkaline Phosphatase Lactate Dehydrogenase C-Reactive Protein Total Protein 5.9 L Albumin 2.7 L Triglycerides Arterial Blood Glucose Arterial Blood Ionized Calcium Urine WBC (Auto) Coronavirus (PCR) SARS-CoV-2 IgG Ab Crossmatch 06/07/20 06/08/20 06/08/20 23:18 05:31 12:07 WBC RBC Hgb Hct MCV MCH MCHC RDW Lymph % (Auto) Lymph # (Auto) Seg Neutrophils % Seg Neuts % (Manual) Lymphocytes % (Manual) Nucleated RBC % Seg Neutrophils # Seg Neutrophils # Man Lymphocytes # (Manual) Monocytes # (Manual) PT INR APTT D-Dimer ABG pH POC ABG pCO2 POC ABG pO2 ABG pO2 ABG HCO3 ABG O2 Saturation ABG Base Excess ABG Hemoglobin ABG Oxyhemoglobin ABG Sodium ABG Potassium ABG Chloride ABG Glucose Oxyhemoglobin Sodium Potassium Chloride Carbon Dioxide BUN Creatinine Glucose POC Glucose 214 H 129 H 179 H Lactic Acid Calcium Magnesium Ferritin Total Bilirubin Direct Bilirubin AST ALT Alkaline Phosphatase Lactate Dehydrogenase C-Reactive Protein Total Protein Albumin Triglycerides Arterial Blood Glucose Arterial Blood Ionized Calcium Urine WBC (Auto) Coronavirus (PCR) SARS-CoV-2 IgG Ab Crossmatch 06/08/20 06/08/20 06/09/20 18:18 23:35 05:42 WBC RBC Hgb Hct MCV MCH MCHC RDW Lymph % (Auto) Lymph # (Auto) Seg Neutrophils % Seg Neuts % (Manual) Lymphocytes % (Manual) Nucleated RBC % Seg Neutrophils # Seg Neutrophils # Man Lymphocytes # (Manual) Monocytes # (Manual) PT INR APTT D-Dimer ABG pH POC ABG pCO2 POC ABG pO2 ABG pO2 ABG HCO3 ABG O2 Saturation ABG Base Excess ABG Hemoglobin ABG Oxyhemoglobin ABG Sodium ABG Potassium ABG Chloride ABG Glucose Oxyhemoglobin Sodium Potassium Chloride Carbon Dioxide BUN Creatinine Glucose POC Glucose 172 H 177 H 137 H Lactic Acid Calcium Magnesium Ferritin Total Bilirubin Direct Bilirubin AST ALT Alkaline Phosphatase Lactate Dehydrogenase C-Reactive Protein Total Protein Albumin Triglycerides Arterial Blood Glucose Arterial Blood Ionized Calcium Urine WBC (Auto) Coronavirus (PCR) SARS-CoV-2 IgG Ab Crossmatch 06/09/20 06/09/20 06/09/20 06:20 07:55 07:55 WBC 12.4 H RBC 3.26 L Hgb 11.1 L Hct 33.4 L D MCV 102 H MCH 34 H MCHC RDW Lymph % (Auto) Lymph # (Auto) Seg Neutrophils % Seg Neuts % (Manual) Lymphocytes % (Manual) Nucleated RBC % Seg Neutrophils # Seg Neutrophils # Man Lymphocytes # (Manual) Monocytes # (Manual) PT INR APTT D-Dimer ABG pH 7.466 H POC ABG pCO2 50.7 H POC ABG pO2 53.0 L ABG pO2 ABG HCO3 ABG O2 Saturation ABG Base Excess ABG Hemoglobin ABG Oxyhemoglobin ABG Sodium ABG Potassium 2.9 L ABG Chloride 93.0 L ABG Glucose 138 H Oxyhemoglobin Sodium Potassium 3.0 L Chloride 92.3 L Carbon Dioxide 37 H BUN 21 H Creatinine 0.6 L Glucose 120 H POC Glucose Lactic Acid Calcium Magnesium Ferritin Total Bilirubin Direct Bilirubin AST ALT Alkaline Phosphatase Lactate Dehydrogenase C-Reactive Protein Total Protein Albumin Triglycerides Arterial Blood Glucose 138 H Arterial Blood Ionized Calcium 4.5 L Urine WBC (Auto) Coronavirus (PCR) SARS-CoV-2 IgG Ab Crossmatch 06/09/20 06/09/20 06/10/20 11:22 18:32 04:46 WBC RBC Hgb Hct MCV MCH MCHC RDW Lymph % (Auto) Lymph # (Auto) Seg Neutrophils % Seg Neuts % (Manual) Lymphocytes % (Manual) Nucleated RBC % Seg Neutrophils # Seg Neutrophils # Man Lymphocytes # (Manual) Monocytes # (Manual) PT INR APTT D-Dimer ABG pH 7.501 H POC ABG pCO2 POC ABG pO2 126.5 H ABG pO2 ABG HCO3 ABG O2 Saturation ABG Base Excess ABG Hemoglobin 10.3 L ABG Oxyhemoglobin ABG Sodium ABG Potassium ABG Chloride ABG Glucose 220 H Oxyhemoglobin Sodium Potassium Chloride Carbon Dioxide BUN Creatinine Glucose POC Glucose 117 H 121 H Lactic Acid Calcium Magnesium Ferritin Total Bilirubin Direct Bilirubin AST ALT Alkaline Phosphatase Lactate Dehydrogenase C-Reactive Protein Total Protein Albumin Triglycerides Arterial Blood Glucose 220 H Arterial Blood Ionized Calcium Urine WBC (Auto) Coronavirus (PCR) SARS-CoV-2 IgG Ab Crossmatch 06/10/20 06/10/20 06/10/20 05:30 09:38 12:03 WBC RBC Hgb Hct MCV MCH MCHC RDW Lymph % (Auto) Lymph # (Auto) Seg Neutrophils % Seg Neuts % (Manual) Lymphocytes % (Manual) Nucleated RBC % Seg Neutrophils # Seg Neutrophils # Man Lymphocytes # (Manual) Monocytes # (Manual) PT INR APTT D-Dimer ABG pH POC ABG pCO2 POC ABG pO2 ABG pO2 ABG HCO3 ABG O2 Saturation ABG Base Excess ABG Hemoglobin ABG Oxyhemoglobin ABG Sodium ABG Potassium ABG Chloride ABG Glucose Oxyhemoglobin Sodium Potassium Chloride Carbon Dioxide BUN Creatinine Glucose POC Glucose 181 H 204 H Lactic Acid Calcium Magnesium Ferritin Total Bilirubin Direct Bilirubin AST ALT Alkaline Phosphatase Lactate Dehydrogenase C-Reactive Protein Total Protein Albumin Triglycerides 738 H Arterial Blood Glucose Arterial Blood Ionized Calcium Urine WBC (Auto) Coronavirus (PCR) SARS-CoV-2 IgG Ab Crossmatch 06/10/20 06/11/20 06/11/20 17:17 00:04 04:38 WBC RBC Hgb Hct MCV MCH MCHC RDW Lymph % (Auto) Lymph # (Auto) Seg Neutrophils % Seg Neuts % (Manual) Lymphocytes % (Manual) Nucleated RBC % Seg Neutrophils # Seg Neutrophils # Man Lymphocytes # (Manual) Monocytes # (Manual) PT INR APTT D-Dimer ABG pH 7.479 H POC ABG pCO2 POC ABG pO2 76.7 L ABG pO2 ABG HCO3 ABG O2 Saturation ABG Base Excess ABG Hemoglobin 9.8 L ABG Oxyhemoglobin ABG Sodium 135.8 L ABG Potassium ABG Chloride ABG Glucose 238 H Oxyhemoglobin Sodium Potassium Chloride Carbon Dioxide BUN Creatinine Glucose POC Glucose 156 H 178 H Lactic Acid Calcium Magnesium Ferritin Total Bilirubin Direct Bilirubin AST ALT Alkaline Phosphatase Lactate Dehydrogenase C-Reactive Protein Total Protein Albumin Triglycerides Arterial Blood Glucose 238 H Arterial Blood Ionized Calcium Urine WBC (Auto) Coronavirus (PCR) SARS-CoV-2 IgG Ab Crossmatch 06/11/20 06/11/20 06/11/20 05:21 06:52 11:50 WBC RBC Hgb Hct MCV MCH MCHC RDW Lymph % (Auto) Lymph # (Auto) Seg Neutrophils % Seg Neuts % (Manual) Lymphocytes % (Manual) Nucleated RBC % Seg Neutrophils # Seg Neutrophils # Man Lymphocytes # (Manual) Monocytes # (Manual) PT INR APTT D-Dimer ABG pH POC ABG pCO2 POC ABG pO2 ABG pO2 ABG HCO3 ABG O2 Saturation ABG Base Excess ABG Hemoglobin ABG Oxyhemoglobin ABG Sodium ABG Potassium ABG Chloride ABG Glucose Oxyhemoglobin Sodium Potassium Chloride Carbon Dioxide BUN Creatinine Glucose POC Glucose 215 H 187 H Lactic Acid Calcium Magnesium Ferritin Total Bilirubin Direct Bilirubin AST ALT Alkaline Phosphatase Lactate Dehydrogenase C-Reactive Protein Total Protein Albumin Triglycerides 331 H Arterial Blood Glucose Arterial Blood Ionized Calcium Urine WBC (Auto) Coronavirus (PCR) SARS-CoV-2 IgG Ab Crossmatch 06/11/20 06/11/20 06/12/20 17:49 23:35 04:52 WBC RBC Hgb Hct MCV MCH MCHC RDW Lymph % (Auto) Lymph # (Auto) Seg Neutrophils % Seg Neuts % (Manual) Lymphocytes % (Manual) Nucleated RBC % Seg Neutrophils # Seg Neutrophils # Man Lymphocytes # (Manual) Monocytes # (Manual) PT INR APTT D-Dimer ABG pH 7.486 H POC ABG pCO2 POC ABG pO2 ABG pO2 ABG HCO3 ABG O2 Saturation ABG Base Excess ABG Hemoglobin 9.4 L ABG Oxyhemoglobin ABG Sodium ABG Potassium 3.2 L ABG Chloride ABG Glucose 209 H Oxyhemoglobin Sodium Potassium Chloride Carbon Dioxide BUN Creatinine Glucose POC Glucose 211 H 200 H Lactic Acid Calcium Magnesium Ferritin Total Bilirubin Direct Bilirubin AST ALT Alkaline Phosphatase Lactate Dehydrogenase C-Reactive Protein Total Protein Albumin Triglycerides Arterial Blood Glucose 209 H Arterial Blood Ionized Calcium Urine WBC (Auto) Coronavirus (PCR) SARS-CoV-2 IgG Ab Crossmatch 06/12/20 06/12/20 06/12/20 05:13 11:47 18:33 WBC RBC Hgb Hct MCV MCH MCHC RDW Lymph % (Auto) Lymph # (Auto) Seg Neutrophils % Seg Neuts % (Manual) Lymphocytes % (Manual) Nucleated RBC % Seg Neutrophils # Seg Neutrophils # Man Lymphocytes # (Manual) Monocytes # (Manual) PT INR APTT D-Dimer ABG pH POC ABG pCO2 POC ABG pO2 ABG pO2 ABG HCO3 ABG O2 Saturation ABG Base Excess ABG Hemoglobin ABG Oxyhemoglobin ABG Sodium ABG Potassium ABG Chloride ABG Glucose Oxyhemoglobin Sodium Potassium Chloride Carbon Dioxide BUN Creatinine Glucose POC Glucose 174 H 214 H 194 H Lactic Acid Calcium Magnesium Ferritin Total Bilirubin Direct Bilirubin AST ALT Alkaline Phosphatase Lactate Dehydrogenase C-Reactive Protein Total Protein Albumin Triglycerides Arterial Blood Glucose Arterial Blood Ionized Calcium Urine WBC (Auto) Coronavirus (PCR) SARS-CoV-2 IgG Ab Crossmatch 06/12/20 06/13/20 06/13/20 23:49 05:41 12:30 WBC RBC Hgb Hct MCV MCH MCHC RDW Lymph % (Auto) Lymph # (Auto) Seg Neutrophils % Seg Neuts % (Manual) Lymphocytes % (Manual) Nucleated RBC % Seg Neutrophils # Seg Neutrophils # Man Lymphocytes # (Manual) Monocytes # (Manual) PT INR APTT D-Dimer ABG pH POC ABG pCO2 POC ABG pO2 ABG pO2 ABG HCO3 ABG O2 Saturation ABG Base Excess ABG Hemoglobin ABG Oxyhemoglobin ABG Sodium ABG Potassium ABG Chloride ABG Glucose Oxyhemoglobin Sodium Potassium Chloride Carbon Dioxide BUN Creatinine Glucose POC Glucose 160 H 150 H 181 H Lactic Acid Calcium Magnesium Ferritin Total Bilirubin Direct Bilirubin AST ALT Alkaline Phosphatase Lactate Dehydrogenase C-Reactive Protein Total Protein Albumin Triglycerides Arterial Blood Glucose Arterial Blood Ionized Calcium Urine WBC (Auto) Coronavirus (PCR) SARS-CoV-2 IgG Ab Crossmatch 06/13/20 06/13/20 06/13/20 14:14 17:48 23:27 WBC 12.8 H RBC 2.33 L Hgb 8.0 L Hct 23.3 L MCV 100 H MCH 34 H MCHC RDW 15.7 H Lymph % (Auto) Lymph # (Auto) Seg Neutrophils % Seg Neuts % (Manual) 85.0 H Lymphocytes % (Manual) 10.0 L Nucleated RBC % Seg Neutrophils # Seg Neutrophils # Man 10.9 H Lymphocytes # (Manual) Monocytes # (Manual) PT INR APTT D-Dimer ABG pH POC ABG pCO2 POC ABG pO2 ABG pO2 ABG HCO3 ABG O2 Saturation ABG Base Excess ABG Hemoglobin ABG Oxyhemoglobin ABG Sodium ABG Potassium ABG Chloride ABG Glucose Oxyhemoglobin Sodium Potassium Chloride Carbon Dioxide BUN Creatinine Glucose POC Glucose 173 H 154 H Lactic Acid Calcium Magnesium Ferritin Total Bilirubin Direct Bilirubin AST ALT Alkaline Phosphatase Lactate Dehydrogenase C-Reactive Protein Total Protein Albumin Triglycerides Arterial Blood Glucose Arterial Blood Ionized Calcium Urine WBC (Auto) Coronavirus (PCR) SARS-CoV-2 IgG Ab Crossmatch 06/14/20 06/14/20 06/14/20 03:58 05:21 07:15 WBC 26.2 H RBC 2.97 L Hgb 9.7 L Hct 29.9 L D MCV 101 H MCH 33 H MCHC RDW 15.3 H Lymph % (Auto) Lymph # (Auto) Seg Neutrophils % Seg Neuts % (Manual) 79.0 H Lymphocytes % (Manual) 5.0 L Nucleated RBC % 3.0 H Seg Neutrophils # Seg Neutrophils # Man 20.7 H Lymphocytes # (Manual) Monocytes # (Manual) 1.3 H PT INR APTT D-Dimer ABG pH POC ABG pCO2 51.5 H POC ABG pO2 70.0 L ABG pO2 ABG HCO3 ABG O2 Saturation ABG Base Excess ABG Hemoglobin 10.1 L ABG Oxyhemoglobin ABG Sodium 131.5 L ABG Potassium 3.1 L ABG Chloride 93.0 L ABG Glucose 188 H Oxyhemoglobin Sodium Potassium Chloride Carbon Dioxide BUN Creatinine Glucose POC Glucose 147 H Lactic Acid Calcium Magnesium Ferritin Total Bilirubin Direct Bilirubin AST ALT Alkaline Phosphatase Lactate Dehydrogenase C-Reactive Protein Total Protein Albumin Triglycerides Arterial Blood Glucose 188 H Arterial Blood Ionized Calcium Urine WBC (Auto) Coronavirus (PCR) SARS-CoV-2 IgG Ab Crossmatch 06/14/20 06/14/20 06/14/20 07:15 11:30 11:50 WBC RBC Hgb Hct MCV MCH MCHC RDW Lymph % (Auto) Lymph # (Auto) Seg Neutrophils % Seg Neuts % (Manual) Lymphocytes % (Manual) Nucleated RBC % Seg Neutrophils # Seg Neutrophils # Man Lymphocytes # (Manual) Monocytes # (Manual) PT INR APTT D-Dimer ABG pH POC ABG pCO2 POC ABG pO2 ABG pO2 ABG HCO3 ABG O2 Saturation ABG Base Excess ABG Hemoglobin ABG Oxyhemoglobin ABG Sodium ABG Potassium ABG Chloride ABG Glucose Oxyhemoglobin Sodium 135 L Potassium 3.5 L Chloride 90.4 L Carbon Dioxide 38 H BUN Creatinine 0.5 L Glucose 190 H POC Glucose 176 H Lactic Acid Calcium Magnesium Ferritin 1496.0 H Total Bilirubin Direct Bilirubin AST ALT 81 H Alkaline Phosphatase Lactate Dehydrogenase C-Reactive Protein Total Protein Albumin 2.9 L Triglycerides Arterial Blood Glucose Arterial Blood Ionized Calcium Urine WBC (Auto) Coronavirus (PCR) SARS-CoV-2 IgG Ab Crossmatch 06/14/20 06/15/20 06/15/20 23:31 04:00 05:00 WBC RBC Hgb Hct MCV MCH MCHC RDW Lymph % (Auto) Lymph # (Auto) Seg Neutrophils % Seg Neuts % (Manual) Lymphocytes % (Manual) Nucleated RBC % Seg Neutrophils # Seg Neutrophils # Man Lymphocytes # (Manual) Monocytes # (Manual) PT INR APTT D-Dimer ABG pH POC ABG pCO2 POC ABG pO2 ABG pO2 ABG HCO3 ABG O2 Saturation ABG Base Excess ABG Hemoglobin ABG Oxyhemoglobin ABG Sodium ABG Potassium ABG Chloride ABG Glucose Oxyhemoglobin Sodium 133 L Potassium Chloride 91.1 L Carbon Dioxide 34 H BUN Creatinine 0.4 L Glucose 159 H POC Glucose 200 H Lactic Acid Calcium Magnesium Ferritin Total Bilirubin 2.00 H Direct Bilirubin AST 47 H ALT 77 H Alkaline Phosphatase Lactate Dehydrogenase C-Reactive Protein Total Protein Albumin 2.6 L Triglycerides 152 H Arterial Blood Glucose Arterial Blood Ionized Calcium Urine WBC (Auto) Coronavirus (PCR) SARS-CoV-2 IgG Ab Crossmatch 06/15/20 06/15/20 06/15/20 05:35 06:27 11:38 WBC RBC Hgb Hct MCV MCH MCHC RDW Lymph % (Auto) Lymph # (Auto) Seg Neutrophils % Seg Neuts % (Manual) Lymphocytes % (Manual) Nucleated RBC % Seg Neutrophils # Seg Neutrophils # Man Lymphocytes # (Manual) Monocytes # (Manual) PT INR APTT D-Dimer ABG pH POC ABG pCO2 61.0 H POC ABG pO2 67.9 L ABG pO2 ABG HCO3 ABG O2 Saturation ABG Base Excess ABG Hemoglobin 10.4 L ABG Oxyhemoglobin ABG Sodium 132.7 L ABG Potassium 3.3 L ABG Chloride 92.0 L ABG Glucose 158 H Oxyhemoglobin Sodium Potassium Chloride Carbon Dioxide BUN Creatinine Glucose POC Glucose 148 H 197 H Lactic Acid Calcium Magnesium Ferritin Total Bilirubin Direct Bilirubin AST ALT Alkaline Phosphatase Lactate Dehydrogenase C-Reactive Protein Total Protein Albumin Triglycerides Arterial Blood Glucose 158 H Arterial Blood Ionized Calcium Urine WBC (Auto) Coronavirus (PCR) SARS-CoV-2 IgG Ab Crossmatch 06/15/20 06/15/20 06/16/20 17:29 Unknown 00:01 WBC 20.7 H RBC 2.57 L Hgb 8.9 L Hct 25.8 L MCV 101 H MCH 35 H MCHC 35 H RDW 16.0 H Lymph % (Auto) Lymph # (Auto) Seg Neutrophils % Seg Neuts % (Manual) 83.0 H Lymphocytes % (Manual) 8.0 L Nucleated RBC % Seg Neutrophils # Seg Neutrophils # Man 17.2 H Lymphocytes # (Manual) Monocytes # (Manual) 1.2 H PT INR APTT D-Dimer ABG pH POC ABG pCO2 POC ABG pO2 ABG pO2 ABG HCO3 ABG O2 Saturation ABG Base Excess ABG Hemoglobin ABG Oxyhemoglobin ABG Sodium ABG Potassium ABG Chloride ABG Glucose Oxyhemoglobin Sodium Potassium Chloride Carbon Dioxide BUN Creatinine Glucose POC Glucose 231 H 257 H Lactic Acid Calcium Magnesium Ferritin Total Bilirubin Direct Bilirubin AST ALT Alkaline Phosphatase Lactate Dehydrogenase C-Reactive Protein Total Protein Albumin Triglycerides Arterial Blood Glucose Arterial Blood Ionized Calcium Urine WBC (Auto) Coronavirus (PCR) SARS-CoV-2 IgG Ab Crossmatch 06/16/20 06/16/20 06/16/20 04:00 04:00 05:22 WBC 13.8 H RBC 2.03 L Hgb 7.6 L Hct 20.7 L MCV 102 H MCH 37 H MCHC 37 H RDW 16.2 H Lymph % (Auto) 4.4 L Lymph # (Auto) 0.6 L Seg Neutrophils % Seg Neuts % (Manual) Lymphocytes % (Manual) Nucleated RBC % Seg Neutrophils # 12.7 H Seg Neutrophils # Man Lymphocytes # (Manual) Monocytes # (Manual) PT INR APTT D-Dimer ABG pH POC ABG pCO2 POC ABG pO2 ABG pO2 ABG HCO3 ABG O2 Saturation ABG Base Excess ABG Hemoglobin ABG Oxyhemoglobin ABG Sodium ABG Potassium ABG Chloride ABG Glucose Oxyhemoglobin Sodium 130 L Potassium Chloride 88.9 L Carbon Dioxide 36 H BUN Creatinine 0.3 L Glucose 276 H POC Glucose 250 H Lactic Acid Calcium Magnesium Ferritin Total Bilirubin Direct Bilirubin AST ALT Alkaline Phosphatase Lactate Dehydrogenase C-Reactive Protein Total Protein Albumin Triglycerides Arterial Blood Glucose Arterial Blood Ionized Calcium Urine WBC (Auto) Coronavirus (PCR) SARS-CoV-2 IgG Ab Crossmatch 06/16/20 06/16/20 06/17/20 12:44 18:18 00:39 WBC RBC Hgb Hct MCV MCH MCHC RDW Lymph % (Auto) Lymph # (Auto) Seg Neutrophils % Seg Neuts % (Manual) Lymphocytes % (Manual) Nucleated RBC % Seg Neutrophils # Seg Neutrophils # Man Lymphocytes # (Manual) Monocytes # (Manual) PT INR APTT D-Dimer ABG pH POC ABG pCO2 POC ABG pO2 ABG pO2 ABG HCO3 ABG O2 Saturation ABG Base Excess ABG Hemoglobin ABG Oxyhemoglobin ABG Sodium ABG Potassium ABG Chloride ABG Glucose Oxyhemoglobin Sodium Potassium Chloride Carbon Dioxide BUN Creatinine Glucose POC Glucose 279 H 239 H 247 H Lactic Acid Calcium Magnesium Ferritin Total Bilirubin Direct Bilirubin AST ALT Alkaline Phosphatase Lactate Dehydrogenase C-Reactive Protein Total Protein Albumin Triglycerides Arterial Blood Glucose Arterial Blood Ionized Calcium Urine WBC (Auto) Coronavirus (PCR) SARS-CoV-2 IgG Ab Crossmatch 06/17/20 06/17/20 06/17/20 03:40 04:08 10:54 WBC RBC Hgb Hct MCV MCH MCHC RDW Lymph % (Auto) Lymph # (Auto) Seg Neutrophils % Seg Neuts % (Manual) Lymphocytes % (Manual) Nucleated RBC % Seg Neutrophils # Seg Neutrophils # Man Lymphocytes # (Manual) Monocytes # (Manual) PT INR APTT D-Dimer ABG pH POC ABG pCO2 65.7 H POC ABG pO2 ABG pO2 ABG HCO3 ABG O2 Saturation ABG Base Excess ABG Hemoglobin 11.9 L ABG Oxyhemoglobin ABG Sodium ABG Potassium ABG Chloride 93.0 L ABG Glucose 244 H Oxyhemoglobin Sodium Potassium Chloride Carbon Dioxide BUN Creatinine Glucose POC Glucose 221 H 248 H Lactic Acid Calcium Magnesium Ferritin Total Bilirubin Direct Bilirubin AST ALT Alkaline Phosphatase Lactate Dehydrogenase C-Reactive Protein Total Protein Albumin Triglycerides Arterial Blood Glucose 244 H Arterial Blood Ionized Calcium Urine WBC (Auto) Coronavirus (PCR) SARS-CoV-2 IgG Ab Crossmatch 06/17/20 06/17/20 06/17/20 17:47 23:11 23:29 WBC RBC Hgb Hct MCV MCH MCHC RDW Lymph % (Auto) Lymph # (Auto) Seg Neutrophils % Seg Neuts % (Manual) Lymphocytes % (Manual) Nucleated RBC % Seg Neutrophils # Seg Neutrophils # Man Lymphocytes # (Manual) Monocytes # (Manual) PT INR APTT D-Dimer ABG pH POC ABG pCO2 85.2 H POC ABG pO2 48.4 L ABG pO2 ABG HCO3 ABG O2 Saturation ABG Base Excess ABG Hemoglobin 8.0 L ABG Oxyhemoglobin ABG Sodium ABG Potassium ABG Chloride 95.0 L ABG Glucose 292 H Oxyhemoglobin Sodium Potassium Chloride Carbon Dioxide BUN Creatinine Glucose POC Glucose 245 H 252 H Lactic Acid Calcium Magnesium Ferritin Total Bilirubin Direct Bilirubin AST ALT Alkaline Phosphatase Lactate Dehydrogenase C-Reactive Protein Total Protein Albumin Triglycerides Arterial Blood Glucose 292 H Arterial Blood Ionized Calcium Urine WBC (Auto) Coronavirus (PCR) SARS-CoV-2 IgG Ab Crossmatch 06/18/20 06/18/20 06/18/20 03:14 05:34 11:47 WBC RBC Hgb Hct MCV MCH MCHC RDW Lymph % (Auto) Lymph # (Auto) Seg Neutrophils % Seg Neuts % (Manual) Lymphocytes % (Manual) Nucleated RBC % Seg Neutrophils # Seg Neutrophils # Man Lymphocytes # (Manual) Monocytes # (Manual) PT INR APTT D-Dimer ABG pH POC ABG pCO2 65.4 H POC ABG pO2 160.7 H ABG pO2 ABG HCO3 ABG O2 Saturation ABG Base Excess ABG Hemoglobin 7.8 L ABG Oxyhemoglobin ABG Sodium ABG Potassium ABG Chloride 95.0 L ABG Glucose 251 H Oxyhemoglobin Sodium Potassium Chloride Carbon Dioxide BUN Creatinine Glucose POC Glucose 243 H 263 H Lactic Acid Calcium Magnesium Ferritin Total Bilirubin Direct Bilirubin AST ALT Alkaline Phosphatase Lactate Dehydrogenase C-Reactive Protein Total Protein Albumin Triglycerides Arterial Blood Glucose 251 H Arterial Blood Ionized Calcium Urine WBC (Auto) Coronavirus (PCR) SARS-CoV-2 IgG Ab Crossmatch 06/18/20 06/18/20 06/19/20 17:31 23:33 04:32 WBC RBC Hgb Hct MCV MCH MCHC RDW Lymph % (Auto) Lymph # (Auto) Seg Neutrophils % Seg Neuts % (Manual) Lymphocytes % (Manual) Nucleated RBC % Seg Neutrophils # Seg Neutrophils # Man Lymphocytes # (Manual) Monocytes # (Manual) PT INR APTT D-Dimer ABG pH POC ABG pCO2 83.1 H POC ABG pO2 65.8 L ABG pO2 ABG HCO3 ABG O2 Saturation ABG Base Excess ABG Hemoglobin 8.9 L ABG Oxyhemoglobin ABG Sodium ABG Potassium ABG Chloride 96.0 L ABG Glucose 297 H Oxyhemoglobin Sodium Potassium Chloride Carbon Dioxide BUN Creatinine Glucose POC Glucose 286 H 238 H Lactic Acid Calcium Magnesium Ferritin Total Bilirubin Direct Bilirubin AST ALT Alkaline Phosphatase Lactate Dehydrogenase C-Reactive Protein Total Protein Albumin Triglycerides Arterial Blood Glucose 297 H Arterial Blood Ionized Calcium Urine WBC (Auto) Coronavirus (PCR) SARS-CoV-2 IgG Ab Crossmatch 06/19/20 06/19/20 06/19/20 05:55 11:20 17:12 WBC RBC Hgb Hct MCV MCH MCHC RDW Lymph % (Auto) Lymph # (Auto) Seg Neutrophils % Seg Neuts % (Manual) Lymphocytes % (Manual) Nucleated RBC % Seg Neutrophils # Seg Neutrophils # Man Lymphocytes # (Manual) Monocytes # (Manual) PT INR APTT D-Dimer ABG pH POC ABG pCO2 POC ABG pO2 ABG pO2 ABG HCO3 ABG O2 Saturation ABG Base Excess ABG Hemoglobin ABG Oxyhemoglobin ABG Sodium ABG Potassium ABG Chloride ABG Glucose Oxyhemoglobin Sodium Potassium Chloride Carbon Dioxide BUN Creatinine Glucose POC Glucose 274 H 282 H 298 H Lactic Acid Calcium Magnesium Ferritin Total Bilirubin Direct Bilirubin AST ALT Alkaline Phosphatase Lactate Dehydrogenase C-Reactive Protein Total Protein Albumin Triglycerides Arterial Blood Glucose Arterial Blood Ionized Calcium Urine WBC (Auto) Coronavirus (PCR) SARS-CoV-2 IgG Ab Crossmatch 06/19/20 06/20/20 06/20/20 23:08 03:33 06:01 WBC RBC Hgb Hct MCV MCH MCHC RDW Lymph % (Auto) Lymph # (Auto) Seg Neutrophils % Seg Neuts % (Manual) Lymphocytes % (Manual) Nucleated RBC % Seg Neutrophils # Seg Neutrophils # Man Lymphocytes # (Manual) Monocytes # (Manual) PT INR APTT D-Dimer ABG pH POC ABG pCO2 POC ABG pO2 ABG pO2 69.9 L ABG HCO3 50.8 H ABG O2 Saturation ABG Base Excess 24.2 H ABG Hemoglobin 5.8 L ABG Oxyhemoglobin ABG Sodium ABG Potassium ABG Chloride ABG Glucose Oxyhemoglobin Sodium Potassium Chloride Carbon Dioxide BUN Creatinine Glucose POC Glucose 293 H 182 H Lactic Acid Calcium Magnesium Ferritin Total Bilirubin Direct Bilirubin AST ALT Alkaline Phosphatase Lactate Dehydrogenase C-Reactive Protein Total Protein Albumin Triglycerides Arterial Blood Glucose Arterial Blood Ionized Calcium Urine WBC (Auto) Coronavirus (PCR) SARS-CoV-2 IgG Ab Crossmatch 06/20/20 06/20/20 06/20/20 11:47 17:46 23:37 WBC RBC Hgb Hct MCV MCH MCHC RDW Lymph % (Auto) Lymph # (Auto) Seg Neutrophils % Seg Neuts % (Manual) Lymphocytes % (Manual) Nucleated RBC % Seg Neutrophils # Seg Neutrophils # Man Lymphocytes # (Manual) Monocytes # (Manual) PT INR APTT D-Dimer ABG pH POC ABG pCO2 POC ABG pO2 ABG pO2 ABG HCO3 ABG O2 Saturation ABG Base Excess ABG Hemoglobin ABG Oxyhemoglobin ABG Sodium ABG Potassium ABG Chloride ABG Glucose Oxyhemoglobin Sodium Potassium Chloride Carbon Dioxide BUN Creatinine Glucose POC Glucose 170 H 215 H 256 H Lactic Acid Calcium Magnesium Ferritin Total Bilirubin Direct Bilirubin AST ALT Alkaline Phosphatase Lactate Dehydrogenase C-Reactive Protein Total Protein Albumin Triglycerides Arterial Blood Glucose Arterial Blood Ionized Calcium Urine WBC (Auto) Coronavirus (PCR) SARS-CoV-2 IgG Ab Crossmatch 06/21/20 06/21/20 06/21/20 04:00 05:14 05:51 WBC RBC Hgb Hct MCV MCH MCHC RDW Lymph % (Auto) Lymph # (Auto) Seg Neutrophils % Seg Neuts % (Manual) Lymphocytes % (Manual) Nucleated RBC % Seg Neutrophils # Seg Neutrophils # Man Lymphocytes # (Manual) Monocytes # (Manual) PT INR APTT D-Dimer ABG pH 7.474 H POC ABG pCO2 POC ABG pO2 ABG pO2 ABG HCO3 52.1 H ABG O2 Saturation ABG Base Excess 23.3 H ABG Hemoglobin 5.3 L ABG Oxyhemoglobin ABG Sodium ABG Potassium ABG Chloride ABG Glucose Oxyhemoglobin 93.8 L Sodium Potassium Chloride Carbon Dioxide BUN Creatinine Glucose POC Glucose 122 H 129 H Lactic Acid Calcium Magnesium Ferritin Total Bilirubin Direct Bilirubin AST ALT Alkaline Phosphatase Lactate Dehydrogenase C-Reactive Protein Total Protein Albumin Triglycerides Arterial Blood Glucose Arterial Blood Ionized Calcium Urine WBC (Auto) Coronavirus (PCR) SARS-CoV-2 IgG Ab Crossmatch 06/21/20 06/21/20 06/21/20 11:00 11:00 11:42 WBC 14.2 H RBC 1.85 L Hgb 6.2 L Hct 19.5 L* MCV 105 H MCH 34 H MCHC RDW 18.0 H Lymph % (Auto) Lymph # (Auto) Seg Neutrophils % Seg Neuts % (Manual) Lymphocytes % (Manual) Nucleated RBC % Seg Neutrophils # Seg Neutrophils # Man Lymphocytes # (Manual) Monocytes # (Manual) PT INR APTT D-Dimer ABG pH POC ABG pCO2 POC ABG pO2 ABG pO2 ABG HCO3 ABG O2 Saturation ABG Base Excess ABG Hemoglobin ABG Oxyhemoglobin ABG Sodium ABG Potassium ABG Chloride ABG Glucose Oxyhemoglobin Sodium 147 H Potassium Chloride Carbon Dioxide 51 H* BUN 31 H Creatinine 0.5 L Glucose 224 H POC Glucose 217 H Lactic Acid Calcium Magnesium Ferritin Total Bilirubin Direct Bilirubin AST ALT Alkaline Phosphatase Lactate Dehydrogenase C-Reactive Protein Total Protein Albumin Triglycerides Arterial Blood Glucose Arterial Blood Ionized Calcium Urine WBC (Auto) Coronavirus (PCR) SARS-CoV-2 IgG Ab Crossmatch 06/21/20 06/21/20 06/21/20 14:18 14:30 18:36 WBC RBC Hgb Hct MCV MCH MCHC RDW Lymph % (Auto) Lymph # (Auto) Seg Neutrophils % Seg Neuts % (Manual) Lymphocytes % (Manual) Nucleated RBC % Seg Neutrophils # Seg Neutrophils # Man Lymphocytes # (Manual) Monocytes # (Manual) PT 15.1 H INR 1.19 H APTT D-Dimer ABG pH POC ABG pCO2 POC ABG pO2 ABG pO2 ABG HCO3 ABG O2 Saturation ABG Base Excess ABG Hemoglobin ABG Oxyhemoglobin ABG Sodium ABG Potassium ABG Chloride ABG Glucose Oxyhemoglobin Sodium Potassium Chloride Carbon Dioxide BUN Creatinine Glucose POC Glucose 185 H Lactic Acid Calcium Magnesium Ferritin Total Bilirubin Direct Bilirubin AST ALT Alkaline Phosphatase Lactate Dehydrogenase C-Reactive Protein Total Protein Albumin Triglycerides Arterial Blood Glucose Arterial Blood Ionized Calcium Urine WBC (Auto) Coronavirus (PCR) SARS-CoV-2 IgG Ab Crossmatch See Detail 06/21/20 06/22/20 06/22/20 21:14 03:50 04:00 WBC RBC Hgb Hct MCV MCH MCHC RDW Lymph % (Auto) Lymph # (Auto) Seg Neutrophils % Seg Neuts % (Manual) Lymphocytes % (Manual) Nucleated RBC % Seg Neutrophils # Seg Neutrophils # Man Lymphocytes # (Manual) Monocytes # (Manual) PT INR APTT D-Dimer ABG pH 7.451 H POC ABG pCO2 POC ABG pO2 ABG pO2 ABG HCO3 47.5 H ABG O2 Saturation ABG Base Excess 22.0 H ABG Hemoglobin < 5.1 L ABG Oxyhemoglobin ABG Sodium ABG Potassium ABG Chloride ABG Glucose Oxyhemoglobin 94.1 L Sodium 149 H Potassium 3.5 L Chloride Carbon Dioxide 42 H* D BUN 34 H Creatinine 0.4 L Glucose 219 H POC Glucose 250 H Lactic Acid Calcium Magnesium Ferritin Total Bilirubin Direct Bilirubin AST ALT Alkaline Phosphatase Lactate Dehydrogenase C-Reactive Protein Total Protein Albumin Triglycerides Arterial Blood Glucose Arterial Blood Ionized Calcium Urine WBC (Auto) Coronavirus (PCR) SARS-CoV-2 IgG Ab Crossmatch 06/22/20 06/22/20 06/22/20 12:16 14:29 17:56 WBC RBC Hgb Hct MCV MCH MCHC RDW Lymph % (Auto) Lymph # (Auto) Seg Neutrophils % Seg Neuts % (Manual) Lymphocytes % (Manual) Nucleated RBC % Seg Neutrophils # Seg Neutrophils # Man Lymphocytes # (Manual) Monocytes # (Manual) PT 11.8 L INR APTT 23.5 L D-Dimer ABG pH POC ABG pCO2 POC ABG pO2 ABG pO2 ABG HCO3 ABG O2 Saturation ABG Base Excess ABG Hemoglobin ABG Oxyhemoglobin ABG Sodium ABG Potassium ABG Chloride ABG Glucose Oxyhemoglobin Sodium Potassium Chloride Carbon Dioxide BUN Creatinine Glucose POC Glucose 215 H 215 H Lactic Acid Calcium Magnesium Ferritin Total Bilirubin Direct Bilirubin AST ALT Alkaline Phosphatase Lactate Dehydrogenase C-Reactive Protein Total Protein Albumin Triglycerides Arterial Blood Glucose Arterial Blood Ionized Calcium Urine WBC (Auto) Coronavirus (PCR) SARS-CoV-2 IgG Ab Crossmatch 06/22/20 06/22/20 06/22/20 23:36 23:45 Unknown WBC 14.1 H RBC 2.70 L Hgb 8.9 L 8.9 L Hct 26.9 L 27.2 L D MCV 101 H MCH 33 H MCHC RDW 17.7 H Lymph % (Auto) Lymph # (Auto) Seg Neutrophils % Seg Neuts % (Manual) 92.0 H Lymphocytes % (Manual) 5.0 L Nucleated RBC % Seg Neutrophils # Seg Neutrophils # Man 13.0 H Lymphocytes # (Manual) 0.7 L Monocytes # (Manual) PT INR APTT D-Dimer ABG pH POC ABG pCO2 POC ABG pO2 ABG pO2 ABG HCO3 ABG O2 Saturation ABG Base Excess ABG Hemoglobin ABG Oxyhemoglobin ABG Sodium ABG Potassium ABG Chloride ABG Glucose Oxyhemoglobin Sodium Potassium Chloride Carbon Dioxide BUN Creatinine Glucose POC Glucose 208 H Lactic Acid Calcium Magnesium Ferritin Total Bilirubin Direct Bilirubin AST ALT Alkaline Phosphatase Lactate Dehydrogenase C-Reactive Protein Total Protein Albumin Triglycerides Arterial Blood Glucose Arterial Blood Ionized Calcium Urine WBC (Auto) Coronavirus (PCR) SARS-CoV-2 IgG Ab Crossmatch 06/23/20 06/23/20 06/23/20 05:17 05:19 06:50 WBC RBC Hgb Hct MCV MCH MCHC RDW Lymph % (Auto) Lymph # (Auto) Seg Neutrophils % Seg Neuts % (Manual) Lymphocytes % (Manual) Nucleated RBC % Seg Neutrophils # Seg Neutrophils # Man Lymphocytes # (Manual) Monocytes # (Manual) PT INR APTT D-Dimer ABG pH POC ABG pCO2 69.7 H POC ABG pO2 63.3 L ABG pO2 ABG HCO3 ABG O2 Saturation ABG Base Excess ABG Hemoglobin 10.1 L ABG Oxyhemoglobin ABG Sodium ABG Potassium 3.3 L ABG Chloride ABG Glucose 226 H Oxyhemoglobin Sodium Potassium 3.0 L Chloride Carbon Dioxide 41 H* BUN 26 H Creatinine 0.4 L Glucose 209 H POC Glucose 200 H Lactic Acid Calcium Magnesium Ferritin Total Bilirubin Direct Bilirubin AST ALT Alkaline Phosphatase Lactate Dehydrogenase C-Reactive Protein Total Protein Albumin 2.9 L Triglycerides Arterial Blood Glucose 226 H Arterial Blood Ionized Calcium Urine WBC (Auto) Coronavirus (PCR) SARS-CoV-2 IgG Ab Crossmatch 06/23/20 06/23/20 06/23/20 09:41 12:04 18:16 WBC RBC Hgb 9.1 L Hct 28.0 L MCV MCH MCHC RDW Lymph % (Auto) Lymph # (Auto) Seg Neutrophils % Seg Neuts % (Manual) Lymphocytes % (Manual) Nucleated RBC % Seg Neutrophils # Seg Neutrophils # Man Lymphocytes # (Manual) Monocytes # (Manual) PT INR APTT D-Dimer ABG pH POC ABG pCO2 POC ABG pO2 ABG pO2 ABG HCO3 ABG O2 Saturation ABG Base Excess ABG Hemoglobin ABG Oxyhemoglobin ABG Sodium ABG Potassium ABG Chloride ABG Glucose Oxyhemoglobin Sodium Potassium Chloride Carbon Dioxide BUN Creatinine Glucose POC Glucose 146 H 162 H Lactic Acid Calcium Magnesium Ferritin Total Bilirubin Direct Bilirubin AST ALT Alkaline Phosphatase Lactate Dehydrogenase C-Reactive Protein Total Protein Albumin Triglycerides Arterial Blood Glucose Arterial Blood Ionized Calcium Urine WBC (Auto) Coronavirus (PCR) SARS-CoV-2 IgG Ab Crossmatch 06/23/20 06/23/20 06/24/20 23:24 23:41 02:39 WBC RBC Hgb 8.2 L 8.8 L Hct 24.9 L 26.8 L MCV MCH MCHC RDW Lymph % (Auto) Lymph # (Auto) Seg Neutrophils % Seg Neuts % (Manual) Lymphocytes % (Manual) Nucleated RBC % Seg Neutrophils # Seg Neutrophils # Man Lymphocytes # (Manual) Monocytes # (Manual) PT INR APTT D-Dimer ABG pH POC ABG pCO2 POC ABG pO2 ABG pO2 ABG HCO3 ABG O2 Saturation ABG Base Excess ABG Hemoglobin ABG Oxyhemoglobin ABG Sodium ABG Potassium ABG Chloride ABG Glucose Oxyhemoglobin Sodium Potassium Chloride Carbon Dioxide BUN Creatinine Glucose POC Glucose 248 H Lactic Acid Calcium Magnesium Ferritin Total Bilirubin Direct Bilirubin AST ALT Alkaline Phosphatase Lactate Dehydrogenase C-Reactive Protein Total Protein Albumin Triglycerides Arterial Blood Glucose Arterial Blood Ionized Calcium Urine WBC (Auto) Coronavirus (PCR) SARS-CoV-2 IgG Ab Crossmatch 06/24/20 06/24/20 06/24/20 02:39 02:45 05:31 WBC RBC Hgb Hct MCV MCH MCHC RDW Lymph % (Auto) Lymph # (Auto) Seg Neutrophils % Seg Neuts % (Manual) Lymphocytes % (Manual) Nucleated RBC % Seg Neutrophils # Seg Neutrophils # Man Lymphocytes # (Manual) Monocytes # (Manual) PT INR APTT D-Dimer ABG pH POC ABG pCO2 66.9 H POC ABG pO2 109.7 H ABG pO2 ABG HCO3 ABG O2 Saturation ABG Base Excess ABG Hemoglobin 9.7 L ABG Oxyhemoglobin ABG Sodium 135.0 L ABG Potassium ABG Chloride 97.0 L ABG Glucose 277 H Oxyhemoglobin Sodium 136 L Potassium Chloride 95.0 L Carbon Dioxide 34 H D BUN 24 H Creatinine 0.3 L Glucose 260 H POC Glucose 164 H Lactic Acid Calcium Magnesium Ferritin Total Bilirubin Direct Bilirubin AST ALT Alkaline Phosphatase Lactate Dehydrogenase C-Reactive Protein Total Protein 5.2 L Albumin 2.6 L Triglycerides Arterial Blood Glucose 277 H Arterial Blood Ionized Calcium Urine WBC (Auto) Coronavirus (PCR) SARS-CoV-2 IgG Ab Crossmatch 06/24/20 06/24/20 06/24/20 10:00 11:49 17:39 WBC RBC Hgb 8.9 L Hct 26.5 L MCV MCH MCHC RDW Lymph % (Auto) Lymph # (Auto) Seg Neutrophils % Seg Neuts % (Manual) Lymphocytes % (Manual) Nucleated RBC % Seg Neutrophils # Seg Neutrophils # Man Lymphocytes # (Manual) Monocytes # (Manual) PT INR APTT D-Dimer ABG pH POC ABG pCO2 POC ABG pO2 ABG pO2 ABG HCO3 ABG O2 Saturation ABG Base Excess ABG Hemoglobin ABG Oxyhemoglobin ABG Sodium ABG Potassium ABG Chloride ABG Glucose Oxyhemoglobin Sodium Potassium Chloride Carbon Dioxide BUN Creatinine Glucose POC Glucose 198 H 223 H Lactic Acid Calcium Magnesium Ferritin Total Bilirubin Direct Bilirubin AST ALT Alkaline Phosphatase Lactate Dehydrogenase C-Reactive Protein Total Protein Albumin Triglycerides Arterial Blood Glucose Arterial Blood Ionized Calcium Urine WBC (Auto) Coronavirus (PCR) SARS-CoV-2 IgG Ab Crossmatch 06/24/20 06/25/20 06/25/20 23:56 02:16 04:08 WBC RBC Hgb Hct MCV MCH MCHC RDW Lymph % (Auto) Lymph # (Auto) Seg Neutrophils % Seg Neuts % (Manual) Lymphocytes % (Manual) Nucleated RBC % Seg Neutrophils # Seg Neutrophils # Man Lymphocytes # (Manual) Monocytes # (Manual) PT INR APTT D-Dimer ABG pH 7.454 H POC ABG pCO2 56.9 H POC ABG pO2 61.0 L ABG pO2 ABG HCO3 ABG O2 Saturation ABG Base Excess ABG Hemoglobin ABG Oxyhemoglobin ABG Sodium 134.3 L ABG Potassium ABG Chloride 92.0 L ABG Glucose 246 H Oxyhemoglobin Sodium 134 L Potassium Chloride 89.7 L Carbon Dioxide 36 H BUN Creatinine 0.3 L Glucose 254 H POC Glucose 225 H Lactic Acid Calcium Magnesium Ferritin Total Bilirubin Direct Bilirubin AST ALT Alkaline Phosphatase Lactate Dehydrogenase C-Reactive Protein Total Protein Albumin 2.9 L Triglycerides Arterial Blood Glucose 246 H Arterial Blood Ionized Calcium Urine WBC (Auto) Coronavirus (PCR) SARS-CoV-2 IgG Ab Crossmatch 06/25/20 06/25/20 06/25/20 05:44 11:35 17:33 WBC RBC Hgb Hct MCV MCH MCHC RDW Lymph % (Auto) Lymph # (Auto) Seg Neutrophils % Seg Neuts % (Manual) Lymphocytes % (Manual) Nucleated RBC % Seg Neutrophils # Seg Neutrophils # Man Lymphocytes # (Manual) Monocytes # (Manual) PT INR APTT D-Dimer ABG pH POC ABG pCO2 POC ABG pO2 ABG pO2 ABG HCO3 ABG O2 Saturation ABG Base Excess ABG Hemoglobin ABG Oxyhemoglobin ABG Sodium ABG Potassium ABG Chloride ABG Glucose Oxyhemoglobin Sodium Potassium Chloride Carbon Dioxide BUN Creatinine Glucose POC Glucose 170 H 175 H 229 H Lactic Acid Calcium Magnesium Ferritin Total Bilirubin Direct Bilirubin AST ALT Alkaline Phosphatase Lactate Dehydrogenase C-Reactive Protein Total Protein Albumin Triglycerides Arterial Blood Glucose Arterial Blood Ionized Calcium Urine WBC (Auto) Coronavirus (PCR) SARS-CoV-2 IgG Ab Crossmatch 06/25/20 06/26/20 06/26/20 23:55 02:17 02:17 WBC RBC Hgb 10.0 L Hct 30.4 L MCV MCH MCHC RDW Lymph % (Auto) Lymph # (Auto) Seg Neutrophils % Seg Neuts % (Manual) Lymphocytes % (Manual) Nucleated RBC % Seg Neutrophils # Seg Neutrophils # Man Lymphocytes # (Manual) Monocytes # (Manual) PT INR APTT D-Dimer ABG pH POC ABG pCO2 POC ABG pO2 ABG pO2 ABG HCO3 ABG O2 Saturation ABG Base Excess ABG Hemoglobin ABG Oxyhemoglobin ABG Sodium ABG Potassium ABG Chloride ABG Glucose Oxyhemoglobin Sodium 136 L Potassium Chloride 90.1 L Carbon Dioxide 39 H BUN Creatinine 0.2 L Glucose 232 H POC Glucose 192 H Lactic Acid Calcium Magnesium Ferritin Total Bilirubin Direct Bilirubin AST ALT Alkaline Phosphatase Lactate Dehydrogenase C-Reactive Protein Total Protein 6.1 L Albumin 2.9 L Triglycerides Arterial Blood Glucose Arterial Blood Ionized Calcium Urine WBC (Auto) Coronavirus (PCR) SARS-CoV-2 IgG Ab Crossmatch 06/26/20 06/26/20 06/26/20 04:15 05:28 11:58 WBC RBC Hgb Hct MCV MCH MCHC RDW Lymph % (Auto) Lymph # (Auto) Seg Neutrophils % Seg Neuts % (Manual) Lymphocytes % (Manual) Nucleated RBC % Seg Neutrophils # Seg Neutrophils # Man Lymphocytes # (Manual) Monocytes # (Manual) PT INR APTT D-Dimer ABG pH 7.453 H POC ABG pCO2 59.6 H POC ABG pO2 ABG pO2 ABG HCO3 ABG O2 Saturation ABG Base Excess ABG Hemoglobin 10.0 L ABG Oxyhemoglobin ABG Sodium 134.2 L ABG Potassium 3.3 L ABG Chloride 92.0 L ABG Glucose 305 H Oxyhemoglobin Sodium Potassium Chloride Carbon Dioxide BUN Creatinine Glucose POC Glucose 234 H 198 H Lactic Acid Calcium Magnesium Ferritin Total Bilirubin Direct Bilirubin AST ALT Alkaline Phosphatase Lactate Dehydrogenase C-Reactive Protein Total Protein Albumin Triglycerides Arterial Blood Glucose 305 H Arterial Blood Ionized Calcium Urine WBC (Auto) Coronavirus (PCR) SARS-CoV-2 IgG Ab Crossmatch 06/26/20 06/26/20 06/26/20 17:58 21:32 23:40 WBC RBC Hgb Hct MCV MCH MCHC RDW Lymph % (Auto) Lymph # (Auto) Seg Neutrophils % Seg Neuts % (Manual) Lymphocytes % (Manual) Nucleated RBC % Seg Neutrophils # Seg Neutrophils # Man Lymphocytes # (Manual) Monocytes # (Manual) PT INR APTT D-Dimer ABG pH POC ABG pCO2 POC ABG pO2 ABG pO2 ABG HCO3 ABG O2 Saturation ABG Base Excess ABG Hemoglobin ABG Oxyhemoglobin ABG Sodium ABG Potassium ABG Chloride ABG Glucose Oxyhemoglobin Sodium Potassium Chloride Carbon Dioxide BUN Creatinine Glucose POC Glucose 193 H 191 H 241 H Lactic Acid Calcium Magnesium Ferritin Total Bilirubin Direct Bilirubin AST ALT Alkaline Phosphatase Lactate Dehydrogenase C-Reactive Protein Total Protein Albumin Triglycerides Arterial Blood Glucose Arterial Blood Ionized Calcium Urine WBC (Auto) Coronavirus (PCR) SARS-CoV-2 IgG Ab Crossmatch 06/27/20 06/27/20 04:35 05:32 WBC RBC Hgb Hct MCV MCH MCHC RDW Lymph % (Auto) Lymph # (Auto) Seg Neutrophils % Seg Neuts % (Manual) Lymphocytes % (Manual) Nucleated RBC % Seg Neutrophils # Seg Neutrophils # Man Lymphocytes # (Manual) Monocytes # (Manual) PT INR APTT D-Dimer ABG pH 7.464 H POC ABG pCO2 60.8 H POC ABG pO2 ABG pO2 ABG HCO3 ABG O2 Saturation ABG Base Excess ABG Hemoglobin 10.1 L ABG Oxyhemoglobin ABG Sodium ABG Potassium 2.9 L ABG Chloride 92.0 L ABG Glucose 298 H Oxyhemoglobin Sodium Potassium Chloride Carbon Dioxide BUN Creatinine Glucose POC Glucose 211 H Lactic Acid Calcium Magnesium Ferritin Total Bilirubin Direct Bilirubin AST ALT Alkaline Phosphatase Lactate Dehydrogenase C-Reactive Protein Total Protein Albumin Triglycerides Arterial Blood Glucose 298 H Arterial Blood Ionized Calcium Urine WBC (Auto) Coronavirus (PCR) SARS-CoV-2 IgG Ab Crossmatch Chest x-ray: image reviewed (Persitent bilateral alveolar infiltrates, right chest tube) Allied health notes reviewed: RT
[2020-06-27] MEDS: MIDAZOLAM 100 MG in SODIUM CHLORIDE 0.9% 80 ML IV SCH (12:45)
[2020-06-27 14:08] LABS: Alanine Aminotransferase 26 units/L (7-56); Albumin 2.4 g/dL (3.9-5); Blood Urea Nitrogen 14 mg/dL (9-20); Calcium 8.1 mg/dL (8.4-10.2); Hemolysis Index 1
[2020-06-27 14:09] LABS: BUN/Creatinine Ratio 47
--- NOTE | 2020-06-27 14:23 | Progress Note ---
Assessment and Plan Assessment and plan: - Acute hypoxemic respiratory failure; Patient intubated and on vent support --Severe COVID-19 bilateral pneumonia Coronavirus protocol: IV steroid therapy, completed remdesivir, isolation precautions, contact precautions, prone positioning while in bed, pulmonary toilet. ID following SARS CoV-2 IgG positive patient is NOT a candidate for COVID convalescent plasma --Severe sepsis/septic shock, due to COVID 19 PNA cont pressors as needed -- Acute kidney injury (SEN) , likely vasomotor nephropathy Resolved, IV fluids, avoid nephrotoxins --Acute on chronic anemia Guaiac test positive GI evaluation PPIs Continue to monitor -- Elevated liver function tests Suspected secondary to alcoholic liver disease. Supportive care, alcohol cessation, patient counseled. --Colonic distention GI evaluation -recommend stool softeners Serial abdominal x-rays Monitor electrolytes and replete -- DVT prophylaxis On therapeutic Lovenox 06/16/2020. Patient currently on mechanical ventilation with AC mode rate 30, tidal volume 500, FiO2 70% and PEEP of 16. Continue anticoagulation with Lovenox 110 milligrams subcu every 12 hours. Wean sedation of fentanyl/Versed as needed. Currently with IV steroids of Solu-Medrol 40 mg IV every 12 hours. Patient will likely need tracheostomy per pulmonary recommendations. Continue pressors to maintain MAP > 65. 06/17/2020. Patient currently on mechanical ventilation with AC mode rate 30, tidal volume 500, FiO2 65% and PEEP of 16. Continue anticoagulation with Lovenox 110 milligrams subcu every 12 hours. Wean sedation of fentanyl/Versed as needed. Currently with IV steroids of Solu-Medrol 40 mg IV every 12 hours. Patient will likely need tracheostomy per pulmonary recommendations. 06/18/2020. Patient currently on mechanical ventilation with AC mode rate 30, tidal volume 500, FiO2 70% and PEEP of 16. Continue Lovenox for anticoagulation and fentanyl/Versed for sedation. Wean steroids per pulmonary. CIWA protocol initiated for history of EtOH dependence 06/19/2020. Patient currently on mechanical ventilation with AC mode rate 30, tidal volume 500, FiO2 60% and PEEP of 16. Wean FiO2 as tolerated per protocol. Continue Lovenox for anticoagulation and fentanyl/Versed for sedation. Wean steroids per pulmonary. CIWA protocol initiated for history of EtOH dependence 06/20/2020. Patient currently on mechanical ventilation with AC mode rate 30, tidal volume 500, FiO2 60% and PEEP of 16. Wean FiO2 as tolerated, SBT per protocol. Continue Lovenox for anticoagulation and fentanyl/Versed for sedation. Wean steroids per pulmonary. Continue pressors to maintain MAP > 65 mmHg. Patient remains on ETT. Consider tracheostomy placement once oxygenation is better per pulmonary. CIWA protocol initiated for history of EtOH dependence. 06/21/2020. Patient with a small apical pneumothorax discovered yesterday. General surgery consulted and consider placing chest tube. Follow-up serial chest x-ray patient currently on mechanical ventilation with AC mode rate 30, t idal volume 500, FiO2 60% and PEEP of 16. Wean FiO2 as tolerated, SBT per protocol. Continue Lovenox for anticoagulation and fentanyl/Versed for sedation. Wean steroids per pulmonary. Continue pressors to maintain MAP > 65 mmHg. Patient remains on ETT. Consider tracheostomy placement once oxygenation is better per pulmonary. CIWA protocol initiated for history of EtOH dependence. 06/22. Status post right chest tube placement yesterday. Remains mechanically ventilated on pressors. Examination today shows slightly distended abdomen. KUB ordered. Awaiting stool guaiac. Plan to get a GI evaluation. 06/23. Has colonic distention on the x-ray. Discussed with GI-advised stool softeners for now and close monitoring. No indication for colonic decompression at this time. Guaiac test is positive. No emergent indication for endoscopy at this point as per GI. Continue to monitor hemoglobin. 06/24. Remains intubated. On pressors. GI following for positive guaiac stool and anemia, and colonic distention. 06/25. Repeat abdominal xray ordered. Remains on mechanical ventilation. 06/26. Abdominal xray - resolved colonic distension. Mechanically ventilated. 06/27. Plan for trach and PEG. The high probability of a clinically significant, sudden or life threatening deterioration of the [respiratory] system(s) required my full and direct attention, intervention and personal management. The aggregate critical care time was [31] minutes. This time is in addition to time spent performing reported procedures but includes the following: [x] Data Review and interpretation [x] Patient assessment and monitoring of vital signs [x] Documentation [x] Medication orders and management History Interval history: Sedated and intubated Hospitalist Physical - Physical exam Narrative exam: VITAL SIGNS: Reviewed. GENERAL: Sedated and intubated HEAD: No signs of head trauma. MOUTH: Oropharynx is normal. NECK: No adenopathy, no JVD. CHEST: Chest with diminished breath sounds bilaterally. No wheezes, rales, or rhonchi. CARDIAC: normal S1 and S2, without murmurs, gallops, or rubs. ABDOMEN: Slightly distended, bowel sounds hypoactive NEUROLOGIC EXAM: Sedated and intubated - Constitutional Vitals: Temp Pulse Resp BP Pulse Ox 98.7 F 94 H 17 85/51 94 06/27/20 08:00 06/27/20 12:48 06/27/20 11:00 06/27/20 12:48 06/27/20 12:48 Results - Labs CBC & Chem 7: 06/26/20 02:17 06/27/20 Unknown Labs: Laboratory Last Values WBC 14.1 K/mm3 (4.5-11.0) H 06/22/20 Unknown RBC 2.70 M/mm3 (3.65-5.03) L 06/22/20 Unknown Hgb 10.0 gm/dl (11.8-15.2) L 06/26/20 02:17 Hct 30.4 % (35.5-45.6) L 06/26/20 02:17 MCV 101 fl (84-94) H 06/22/20 Unknown MCH 33 pg (28-32) H 06/22/20 Unknown MCHC 33 % (32-34) 06/22/20 Unknown RDW 17.7 % (13.2-15.2) H 06/22/20 Unknown Plt Count 321 K/mm3 (140-440) 06/26/20 02:17 Lymph % (Auto) 4.4 % (13.4-35.0) L 06/16/20 04:00 Esmeralda % (Auto) 3.6 % (0.0-7.3) 06/16/20 04:00 Eos % (Auto) 0.0 % (0.0-4.3) 06/16/20 04:00 Baso % (Auto) 0.3 % (0.0-1.8) 06/16/20 04:00 Lymph # (Auto) 0.6 K/mm3 (1.2-5.4) L 06/16/20 04:00 Esmeralda # (Auto) 0.5 K/mm3 (0.0-0.8) 06/16/20 04:00 Eos # (Auto) 0.0 K/mm3 (0.0-0.4) 06/16/20 04:00 Baso # (Auto) 0.0 K/mm3 (0.0-0.1) 06/16/20 04:00 Add Manual Diff Complete 06/22/20 Unknown Total Counted 100 06/22/20 Unknown Seg Neutrophils % Medical Affairs Director 06/16/20 04:00 Seg Neuts % (Manual) 92.0 % (40.0-70.0) H 06/22/20 Unknown Band Neutrophils % 0 % 06/15/20 Unknown Lymphocytes % (Manual) 5.0 % (13.4-35.0) L 06/22/20 Unknown Reactive Lymphs % (Man) 0 % 06/15/20 Unknown Monocytes % (Manual) 3.0 % (0.0-7.3) 06/22/20 Unknown Eosinophils % (Manual) 0 % (0.0-4.3) 06/15/20 Unknown Basophils % (Manual) 0 % (0.0-1.8) 06/15/20 Unknown Metamyelocytes % 3.0 % 06/15/20 Unknown Myelocytes % 0 % 06/15/20 Unknown Promyelocytes % 0 % 06/15/20 Unknown Blast Cells % 0 % 06/15/20 Unknown Nucleated RBC % Not Reportable 06/22/20 Unknown Seg Neutrophils # 12.7 K/mm3 (1.8-7.7) H 06/16/20 04:00 Seg Neutrophils # Man 13.0 K/mm3 (1.8-7.7) H 06/22/20 Unknown Band Neutrophils # 0.0 K/mm3 06/22/20 Unknown Lymphocytes # (Manual) 0.7 K/mm3 (1.2-5.4) L 06/22/20 Unknown Abs React Lymphs (Man) 0.0 K/mm3 06/22/20 Unknown Monocytes # (Manual) 0.4 K/mm3 (0.0-0.8) 06/22/20 Unknown Eosinophils # (Manual) 0.0 K/mm3 (0.0-0.4) 06/22/20 Unknown Basophils # (Manual) 0.0 K/mm3 (0.0-0.1) 06/22/20 Unknown Metamyelocytes # 0.0 K/mm3 06/22/20 Unknown Myelocytes # 0.0 K/mm3 06/22/20 Unknown Promyelocytes # 0.0 K/mm3 06/22/20 Unknown Blast Cells # 0.0 K/mm3 06/22/20 Unknown WBC Morphology Not Reportable 06/22/20 Unknown Hypersegmented Neuts Not Reportable 06/22/20 Unknown Hyposegmented Neuts Not Reportable 06/22/20 Unknown Hypogranular Neuts Not Reportable 06/22/20 Unknown Smudge Cells Not Reportable 06/22/20 Unknown Toxic Granulation Not Reportable 06/22/20 Unknown Toxic Vacuolation Not Reportable 06/22/20 Unknown Dohle Bodies Not Reportable 06/22/20 Unknown Pelger-Huet Anomaly Not Reportable 06/22/20 Unknown Jason Rods Not Reportable 06/22/20 Unknown Platelet Estimate Consistent w auto 06/22/20 Unknown Clumped Platelets Not Reportable 06/22/20 Unknown Plt Clumps, EDTA Not Reportable 06/22/20 Unknown Large Platelets Not Reportable 06/22/20 Unknown Giant Platelets Not Reportable 06/22/20 Unknown Platelet Satelliting Not Reportable 06/22/20 Unknown Plt Morphology Comment Not Reportable 06/22/20 Unknown RBC Morphology Not Reportable 06/22/20 Unknown Dimorphic RBCs Not Reportable 06/22/20 Unknown Polychromasia Few 06/22/20 Unknown Hypochromasia Not Reportable 06/22/20 Unknown Poikilocytosis Not Reportable 06/22/20 Unknown Anisocytosis Few 06/22/20 Unknown Microcytosis Not Reportable 06/22/20 Unknown Macrocytosis Few 06/22/20 Unknown Spherocytes Not Reportable 06/22/20 Unknown Pappenheimer Bodies Not Reportable 06/22/20 Unknown Sickle Cells Not Reportable 06/22/20 Unknown Target Cells Not Reportable 06/22/20 Unknown Tear Drop Cells Not Reportable 06/22/20 Unknown Ovalocytes Not Reportable 06/22/20 Unknown Stomatocytes Few 06/14/20 07:15 Helmet Cells Not Reportable 06/22/20 Unknown Sinclair-Burna Bodies Not Reportable 06/22/20 Unknown [place] Rings Not Reportable 06/22/20 Unknown [place] Cells Not Reportable 06/22/20 Unknown Bite Cells Not Reportable 06/22/20 Unknown Crenated Cell Not Reportable 06/22/20 Unknown Elliptocytes Not Reportable 06/22/20 Unknown Acanthocytes (Spur) Not Reportable 06/22/20 Unknown Rouleaux Not Reportable 06/22/20 Unknown Hemoglobin C Crystals Not Reportable 06/22/20 Unknown Schistocytes Not Reportable 06/22/20 Unknown Malaria parasites Not Reportable 06/22/20 Unknown Josue Bodies Not Reportable 06/22/20 Unknown Hem Pathologist Commnt No 06/22/20 Unknown PT 11.8 Sec. (12.2-14.9) L 06/22/20 14:29 INR 0.88 (0.87-1.13) 06/22/20 14:29 APTT 23.5 Sec. (24.2-36.6) L 06/22/20 14:29 D-Dimer 1887.82 ng/mlDDU (0-234) H 05/20/20 08:16 Heparin Anti-Xa Level 0.47 U.I./ml (0.3-0.7) 06/27/20 02:13 ABG pH 7.464 (7.320-7.450) H 06/27/20 04:35 POC ABG pCO2 60.8 mmHg (32.0-48.0) H 06/27/20 04:35 ABG pCO2 69.8 mm Hg 06/22/20 03:50 POC ABG pO2 100.4 mmHg (83-108) 06/27/20 04:35 ABG pO2 89.6 mm Hg (80.0-90.0) 06/22/20 03:50 POC ABG HCO3 42.7 06/27/20 04:35 ABG HCO3 47.5 mmol/L (20.0-26.0) H 06/22/20 03:50 ABG O2 Saturation 97.1 % (95.0-99.0) 06/22/20 03:50 ABG O2 Content 6.0 (0.0-44) 06/22/20 03:50 POC ABG Base Excess 16.6 06/27/20 04:35 ABG Base Excess 22.0 mmol/L (-2.0-3.0) H 06/22/20 03:50 ABG Hemoglobin 10.1 (12.0-17.5) L 06/27/20 04:35 ABG Oxyhemoglobin 96.6 (94-98) 06/24/20 02:45 ABG Carboxyhemoglobin 2.6 % (0.0-5.0) 06/22/20 03:50 ABG Methemoglobin 0.3 (0.0-1.5) 06/24/20 02:45 ABG Sodium 137.1 mmol/L (136.0-145.0) 06/27/20 04:35 ABG Potassium 2.9 mmol/L (3.40-4.50) L 06/27/20 04:35 ABG Chloride 92.0 mmol/L (98-107) L 06/27/20 04:35 ABG Glucose 298 mg/dL (65-95) H 06/27/20 04:35 Oxyhemoglobin 94.1 % (95.0-99.0) L 06/22/20 03:50 Carboxyhemoglobin 1.1 (0.5-1.5) 06/24/20 02:45 FiO2 50 06/27/20 04:35 Sodium 137 mmol/L (137-145) 06/27/20 Unknown Potassium 2.9 mmol/L (3.6-5.0) L* 06/27/20 Unknown Chloride 93.4 mmol/L (98-107) L 06/27/20 Unknown Carbon Dioxide 42 mmol/L (22-30) H* 06/27/20 Unknown Anion Gap 5 mmol/L 06/27/20 Unknown BUN 14 mg/dL (9-20) 06/27/20 Unknown Creatinine 0.3 mg/dL (0.8-1.3) L 06/27/20 Unknown Estimated GFR > 60 ml/min 06/27/20 Unknown BUN/Creatinine Ratio 47 % 06/27/20 Unknown Glucose 211 mg/dL (75-100) H 06/27/20 Unknown POC Glucose 182 mg/dL (70-105) H 06/27/20 12:37 Lactic Acid 1.80 mmol/L (0.7-2.0) 05/09/20 Unknown Calcium 8.1 mg/dL (8.4-10.2) L 06/27/20 Unknown Phosphorus 3.10 mg/dL (2.5-4.5) 06/15/20 04:00 Magnesium 1.90 mg/dL (1.7-2.3) 06/15/20 04:00 Ferritin 1496.0 ng/mL (30.0-300.0) H 06/14/20 11:50 Total Bilirubin 0.60 mg/dL (0.1-1.2) 06/27/20 Unknown Direct Bilirubin 0.6 mg/dL (0-0.2) H 05/11/20 07:30 Indirect Bilirubin 0.9 mg/dL 05/11/20 07:30 AST 16 units/L (5-40) 06/27/20 Unknown ALT 26 units/L (7-56) 06/27/20 Unknown Alkaline Phosphatase 68 units/L (35-129) 06/27/20 Unknown Lactate Dehydrogenase 705 units/L (91-180) H 05/20/20 08:16 C-Reactive Protein 3.10 mg/dL (0.00-1.30) H 05/20/20 08:16 Total Protein 5.1 g/dL (6.3-8.2) L 06/27/20 Unknown Albumin 2.4 g/dL (3.9-5) L 06/27/20 Unknown Albumin/Globulin Ratio 0.9 % 06/27/20 Unknown Triglycerides 152 mg/dL (2-149) H 06/15/20 05:00 Procalcitonin 0.94 ng/mL (<0.15) 06/14/20 11:50 Arterial Blood Glucose 298 mg/dL (65-95) H 06/27/20 04:35 Arterial Blood Ionized Calcium 4.6 mg/dL (4.6-5.3) 06/27/20 04:35 Urine Color Fauzia (Yellow) 05/10/20 Unknown Urine Turbidity Clear (Clear) 05/10/20 Unknown Urine pH 5.0 (5.0-7.0) 05/10/20 Unknown Ur Specific [place] 1.019 (1.003-1.030) 05/10/20 Unknown Urine Protein 100 mg/dl mg/dL (Negative) 05/10/20 Unknown Urine Glucose (UA) Neg mg/dL (Negative) 05/10/20 Unknown Urine Ketones Neg mg/dL (Negative) 05/10/20 Unknown Urine Blood Lg (Negative) 05/10/20 Unknown Urine Nitrite Neg (Negative) 05/10/20 Unknown Urine Bilirubin Neg (Negative) 05/10/20 Unknown Urine Urobilinogen 2.0 mg/dL (<2.0) 05/10/20 Unknown Ur Leukocyte Esterase Neg (Negative) 05/10/20 Unknown Urine WBC (Auto) 11.0 /HPF (0.0-6.0) H 05/10/20 Unknown Urine RBC (Auto) 2.0 /HPF (0.0-6.0) 05/10/20 Unknown U Epithel Cells (Auto) 1.0 /HPF (0-13.0) 05/10/20 Unknown Urine Bacteria (Auto) 1+ /HPF (Negative) 05/10/20 Unknown Urine Mucus Few /HPF 05/10/20 Unknown Plasma/Serum Alcohol < 0.01 % (0-0.07) 05/09/20 14:20 Coronavirus (PCR) Positive (Negative) A 05/10/20 Unknown SARS-CoV-2 IgG Ab Reactive (NonReactive) A 05/11/20 07:30 Blood Type B POSITIVE 06/21/20 14:18 Antibody Screen Negative 06/21/20 14:18 Crossmatch See Detail 06/21/20 14:18 - Diagnostic Impressions Diagnostic Impressions: Echocardiogram 05/20/20 13:02 Transthoracic Echocardiogram Indication: CHF BP: 97/73 Conclusions *The study quality is technically very difficult and limited. *The left ventricular chamber size, wall thickness and systolic function are within normal limits. There are no wall motion abnormalities observed. Ejection fraction is normal. *The estimated ejection fraction is 60-65%. *The pericardium appears normal. Findings Procedure Info: The study quality is technically difficult. Left Ventricle: The left ventricular chamber size, wall thickness and systolic function are within normal limits. There are no wall motion abnormalities observed. Ejection fraction is normal. The estimated ejection fraction is 60-65%. Abnormal left ventricular diastolic filling is observed, consistent with impaired relaxation. Left Atrium: The left atrium is normal in size with no visual thrombus identified. Right Ventricle: The right ventricle is not well visualized. Right Atrium: The right atrium is not well visualized. Aortic Valve: The aortic valve is trileaflet. The leaflets are thin with normal excursion. There is no aortic stenosis or regurgitation present. Mitral Valve: The mitral valve appears normal in structure and function. Tricuspid Valve: The tricuspid valve appears normal in structure and function. Unable to estimate the right ventricular systolic pressure. Pulmonic Valve: The pulmonic valve is not well visualized. There is no evidence of pulmonic regurgitation. There is no pulmonic stenosis. Pericardium: The pericardium appears normal. Pulmonary Artery: The main pulmonary artery is not well visualized. Venous: The inferior vena cava appears normal in size. Measurements Chambers 2D Name Value Normal Range IVSd (2D) 0.83 cm (0.6 - 1.1) LVPWd (2D) 0.83 cm (0.6 - 1.1) LVIDd (2D) 3.88 cm (3.7 - 5.6) LVIDs (2D) 2.46 cm (2 - 3.8) LV FS (2D) 36.52 % - EF Teichholz (2D) 66.97 % - Ao root diameter (2D) 3.47 cm (2 - 3.7) Volumes/Mass Name Value Normal Range LA ESV SP 4CH (A/L) 22.4 ml - LA ESV SP 2CH (A/L) 22.89 ml - LA ESV BP (A/L) 23.06 ml - LA ESV SP 4CH (MOD) 21.09 ml - LA ESV SP 2CH (MOD) 22.44 ml - Diastolic/Systolic Function Name Value Normal Range MV E-wave Vmax 0.48 m/sec - MV deceleration time 156.3 msec - MV A-wave Vmax 0.59 m/sec - MV E:A ratio 0.81 ratio - Aortic Valve Name Value Normal Range AV Vmax 0.97 m/sec - AV VTI 14.49 cm - AV peak gradient 3.73 mmHg - AV mean gradient 1.89 mmHg - LVOT diameter 2.09 cm - LVOT Vmax 0.72 m/sec - LVOT VTI 10.21 cm - LVOT peak gradient 2.05 mmHg - LVOT mean gradient 1.03 mmHg - SV LVOT 35.17 ml - INNA (continuity Vmax) 2.55 cm2 - INNA (continuity VTI) 2.43 cm2 - Tricuspid Valve Name Value Normal Range TV E-wave Vmax 0.37 m/sec - Pulmonic Valve/Qp:Qs Name Value Normal Range PV Vmax 0.72 m/sec - PV peak gradient 2.06 mmHg - RVOT Vmax 0.85 m/sec - RVOT VTI 9.89 cm - RVOT peak gradient 2.9 mmHg - PV acceleration time 72.31 msec - Cantor/IV: Voiding Method Condom Catheter IV Catheter Type [Right Upper PICC Line arm] IV Catheter Type [Right CVL Internal Jugular] IV Catheter Type [Right Peripheral IV Forearm] IV Catheter Type [Left Forearm Peripheral IV ] IV Catheter Type [Left Wrist] INT / Saline Lock IV Catheter Type [Right Hand] INT / Saline Lock IV Catheter Type [Left Hand] INT / Saline Lock IV Catheter Type [Left Peripheral IV Antecubital] Active Medications - Current Medications Current Medications: Generic Name Dose Route Start Last Admin Trade Name Freq PRN Reason Stop Dose Admin Acetaminophen 650 mg 06/14/20 10:07 06/21/20 20:21 Tylenol FEEDTUBE 650 mg Q4H PRN Administration Pain, Mild (1-3) Alprazolam 0.25 mg 05/20/20 17:53 06/25/20 04:11 Alprazolam 0.25 Mg Tab PO 0.25 mg Q8H PRN Administration Anxiety Lipase/Protease/Amylase 1 each 05/22/20 13:01 Lipase 10,500/Protease 25,000/Amylase 43,750 (Units) Dr Newell FEEDTUBE PRN PRN For Clogged Feeding Tube Bisacodyl 10 mg 06/26/20 22:00 06/27/20 09:59 Bisacodyl 10 Mg Rect Supp MT 10 mg BID DESIRE Administration Docusate Sodium 100 mg 05/28/20 14:00 06/27/20 09:51 Colace PO 100 mg BID DESIRE Administration Fentanyl 50 mcg 06/22/20 09:48 Fentanyl 100 Mcg/2 Ml Inj IV Q10MIN PRN ANALGESIA Folic Acid 1 mg 05/09/20 15:36 06/27/20 09:52 Folvite PO 1 mg QDAY DESIRE Administration Heparin Sodium (Porcine) 4,300 unit 06/22/20 12:48 Heparin 10,000 Units/10 Ml Vial 40 unit/kg (4300 unit) IV Q6H PRN Anti-Xa Assay < 0.1 units/ml Hydrophilic Ointment 1 applic 05/21/20 20:33 Lip Therapy Vaseline TP Q2HR PRN Dry Lips Midazolam HCl 100 mg/ Sodium 100 mls @ 2 mls/hr 06/02/20 14:00 06/27/20 12:45 Chloride IV 5 mg/hr TITR DESIRE 5 mls/hr Administration Protocol 2 MG/HR Norepinephrine 4 mg in 250 mls @ 7.5 mls/hr 06/04/20 16:00 06/27/20 13:46 Levophed Drip 4 Mg/Ns 250 Ml IV 8 mcg/min TITR DESIRE 30 mls/hr Titration Protocol 2 MCG/MIN Fentanyl Citrate 2,000 mcg in 100 mls @ 5.32 mls/hr 06/09/20 14:00 06/27/20 10:21 Fentanyl Drip Premix IV 4 mcg/kg/hr TITR DESIRE 21.28 mls/hr Administration Protocol 1 MCG/KG/HR Vasopressin 20 unit/ Sodium 101 mls @ 9.09 mls/hr 06/09/20 18:00 Chloride IV TITR DESIRE Protocol 0.03 UNITS/MIN Heparin Sodium/Sodium Chloride 25,000 unit in 500 mls @ 30 mls/hr 06/22/20 13:00 06/27/20 03:50 Heparin/ 0.45% Nacl-25,000 Unit/500 Ml IV 1,500 units/hr TITR DESIRE 30 mls/hr Titration Protocol 1,500 UNITS/HR Propofol 1,000 mg in 100 mls @ 3.24 mls/hr 06/24/20 22:00 06/27/20 10:19 Diprivan 10 Mg/Ml IV 40 mcg/kg/min TITR DESIRE 25.92 mls/hr Administration Protocol 5 MCG/KG/MIN Insulin Glargine 24 units 06/26/20 22:00 06/26/20 21:34 Insulin Glargine 100 Units/Ml SUB-Q 24 units QHS COUNT INCLUDES THE [facility] Administration Insulin Human Lispro 0 unit 05/29/20 14:00 06/27/20 12:52 Insulin Lispro 100 Unit/Ml Vial 3 Ml SUB-Q 3 unit Q6H COUNT INCLUDES THE [facility] Administration Protocol Methylprednisolone Sodium Succinate 40 mg 05/20/20 18:00 06/27/20 06:43 Methylprednisolone Sod Succinate 40 Mg/1 Ml Inj IV 40 mg Q12H COUNT INCLUDES THE [facility] Administration Multi-Ingred Cream/Lotion/Oil/Oint 1 applic 05/21/20 20:33 Mineral Oil/Petrolatum, White Ophth Oint 3.5 Gm OU Q4HR PRN Dry Eye(s) Pantoprazole Sodium 40 mg 06/23/20 10:00 06/27/20 09:51 Pantoprazole 40 Mg Inj IV 40 mg QDAY DESIRE Administration Phenobarbital 20 mg 06/18/20 14:00 06/27/20 13:41 Phenobarbital 20 Mg/5 Ml Oral Liqd FEEDTUBE 20 mg Q8HR DESIRE Administration Quetiapine Fumarate 300 mg 06/10/20 22:00 06/27/20 09:52 Seroquel PO 300 mg BID DESIRE Administration Senna 17.2 mg 06/07/20 10:00 06/27/20 09:52 Senokot PO 17.2 mg BID DESIRE Administration Simple Syrup 15 ml 05/22/20 13:01 Simple Syrup 15 Ml FEEDTUBE PRN PRN Hypoglycemia Simple Syrup 30 ml 05/22/20 13:01 Simple Syrup 15 Ml FEEDTUBE PRN PRN Hypoglycemia Sodium Bicarbonate 325 mg 05/22/20 13:01 Sodium Bicarbonate 325 Mg Tab FEEDTUBE PRN PRN For Clogged Feeding Tube Sodium Chloride 10 ml 05/09/20 22:00 06/27/20 09:53 Sodium Chloride Flush Syringe 10 Ml IV 10 ml BID DESIRE Administration Nutrition/Malnutrition Assess - Dietary Evaluation Nutrition/Malnutrition Findings: Nutrition Notes Start: 05/17/20 14:10 Freq: Status: Active Protocol: Document 06/25/20 13:36 AB (Rec: 06/25/20 13:42 AB [id number]) Co-Sign 06/25/20 13:36 LP Nutrition Notes Initial or Follow up Reassessment Current Diagnosis Sepsis,Respiratory Failure Other Pertinent Diagnosis Bilat pneu, COVID-19 (+), EtOH dependence Current Diet Vital HP at 65 ml/hr (goal rate) Labs/Tests Na 134 Cr 0.3 POC BG 170 Pertinent Medications Reviewed Height 6 ft Weight 108 kg [place] Body Weight (kg) 80.90 BMI 32.3 Weight Status Obese Subjective/Other Information F/U for TF tolerance. Per RN, pt is tolerating TF at goal. Per RN, the MD came by and said that there is no ileus. Percent of energy/protein needs met: 85%/84% Burn Absent Trauma Absent GI Symptoms None Current % PO Negligible Minimum of two criteria No physical signs of malnutrition #1 Nutrition Diagnosis Inadequate oral intake Diagnosis Progress(for reassessment Continues documentation) Is patient on ventilator? Yes Is Patient Ambulatory and/or Out of Bed No REE-([place]-confined to bed) 2371.200 Kcal/Kg value to use for calculation 17 Approximate Energy Requirements Using 1836 kcal/Kg Calculation Used for Recommendations Kcal/kg Additional Notes Pro needs >2g/kg IBW: at least 162g/day Fluid needs 1ml/kcal Nutrition Intervention Change Diet Order: Continue TF Nutrition Support: Vital HP at 65ml/hr with 50ml water flush q4h. Kcal 1,560 Protein (gm) 136 Fluid (mL) 1,304 Goal #1 TF tolerance Goal #2 TF (at goal rate) to meet at least 75% energy and pro needs Anticipated Discharge Needs: Unable to identify at this time Follow-Up By: 06/30/20 Additional Comments F/U TF tolerance
[2020-06-27] MEDS: HEPARIN/ 0.45% NACL DRIP 25,000 UNIT/500 ML BAG IV SCH (14:54)
[2020-06-27] MEDS: POTASSIUM CHLORIDE 10 MEQ 10 MEQ/100 ML BAG IV SCH ×7 (14:59→20:05)
[2020-06-27] MEDS ORDERED: POTASSIUM CHLORIDE ER 20 MEQ TAB PO ONE (15:00)
--- NOTE | 2020-06-27 16:45 | Gastroenterology Progress Note ---
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 - Will continue rectal suppositories + senna. - If worsens will try neostigmine, but for now, since some BMs recently, and KUB improved from 2-3 days ago, will sign off. - Please call if needed. Subjective Date of service: 06/27/20 Principal diagnosis: Distended Bowel Interval history: No significant change in status. Objective - Constitutional Vitals: Temp Pulse Resp BP Pulse Ox 98.0 F 115 H 21 116/66 98 06/27/20 12:00 06/27/20 16:26 06/27/20 16:15 06/27/20 16:26 06/27/20 16:26 General appearance: no acute distress - Neck Neck: supple, normal ROM - Respiratory Respiratory effort: normal Respiratory: bilateral: CTA (Vent) - Cardiovascular Rhythm: regular Heart Sounds: Present: S1 & S2 - Gastrointestinal General gastrointestinal: Present: soft, non-tender, distended (Minimal distention) - Labs CBC & Chem 7: 06/26/20 02:17 06/27/20 Unknown Labs: Laboratory Results - last 24 hr 06/26/20 06/26/20 06/26/20 17:58 21:32 23:40 Heparin Anti-Xa Level ABG pH POC ABG pCO2 POC ABG pO2 POC ABG HCO3 POC ABG Base Excess ABG Hemoglobin ABG Sodium ABG Potassium ABG Chloride ABG Glucose FiO2 Sodium Potassium Chloride Carbon Dioxide Anion Gap BUN Creatinine Estimated GFR BUN/Creatinine Ratio Glucose POC Glucose 193 H 191 H 241 H Calcium Total Bilirubin AST ALT Alkaline Phosphatase Total Protein Albumin Albumin/Globulin Ratio Arterial Blood Glucose Arterial Blood Ionized Calcium 06/27/20 06/27/20 06/27/20 02:13 04:35 05:32 Heparin Anti-Xa Level 0.47 ABG pH 7.464 H POC ABG pCO2 60.8 H POC ABG pO2 100.4 POC ABG HCO3 42.7 POC ABG Base Excess 16.6 ABG Hemoglobin 10.1 L ABG Sodium 137.1 ABG Potassium 2.9 L ABG Chloride 92.0 L ABG Glucose 298 H FiO2 50 Sodium Potassium Chloride Carbon Dioxide Anion Gap BUN Creatinine Estimated GFR BUN/Creatinine Ratio Glucose POC Glucose 211 H Calcium Total Bilirubin AST ALT Alkaline Phosphatase Total Protein Albumin Albumin/Globulin Ratio Arterial Blood Glucose 298 H Arterial Blood Ionized Calcium 4.6 06/27/20 06/27/20 12:37 Unknown Heparin Anti-Xa Level ABG pH POC ABG pCO2 POC ABG pO2 POC ABG HCO3 POC ABG Base Excess ABG Hemoglobin ABG Sodium ABG Potassium ABG Chloride ABG Glucose FiO2 Sodium 137 Potassium 2.9 L* Chloride 93.4 L Carbon Dioxide 42 H* Anion Gap 5 BUN 14 Creatinine 0.3 L Estimated GFR > 60 BUN/Creatinine Ratio 47 Glucose 211 H POC Glucose 182 H Calcium 8.1 L Total Bilirubin 0.60 AST 16 ALT 26 Alkaline Phosphatase 68 Total Protein 5.1 L Albumin 2.4 L Albumin/Globulin Ratio 0.9 Arterial Blood Glucose Arterial Blood Ionized Calcium
[2020-06-27] MEDS: INSULIN GLARGINE 100 UNITS/ML SUB-Q SCH (21:32)
[2020-06-28] MEDS: fentaNYL DRIP Premix 2,000 MCG/100 ML BAG IV SCH ×5 (05:02→23:19)
[2020-06-28] MEDS: MIDAZOLAM 100 MG in SODIUM CHLORIDE 0.9% 80 ML IV SCH (05:04)
[2020-06-28] MEDS: methylPREDNISolone Sod Succinate 40 MG/1 ML INJ IV SCH ×2 (05:05→17:22)
[2020-06-28] MEDS: PHENobarbital 20 MG/5 ML ORAL LIQD FEEDTUBE SCH ×3 (05:05→21:15)
[2020-06-28] MEDS: INSULIN LISPRO 100 UNIT/ML VIAL 3 mL SUB-Q SCH ×3 (05:06→17:22)
[2020-06-28] MEDS: NORepinephrine/NS 4 MG-250 ML 4 MG/250 ML BAG IV SCH ×2 (06:08→23:09)
[2020-06-28 07:18] LABS: Hematocrit 28.4 % (35.5-45.6); Hemoglobin 9.5 gm/dl (11.8-15.2); Mean Corpuscular HGB Conc 33 % (32-34); Mean Corpuscular Volume 100 fl (84-94); Platelet Count 339 K/mm3 (140-440); Red Blood Count 2.85 M/mm3 (3.65-5.03); Red Cell Distribution Width 17.3 % (13.2-15.2)
[2020-06-28] MEDS: HEPARIN/ 0.45% NACL DRIP 25,000 UNIT/500 ML BAG IV SCH (07:28)
[2020-06-28 08:07] LABS: Alanine Aminotransferase 32 units/L (7-56); Albumin 2.7 g/dL (3.9-5); Blood Urea Nitrogen 14 mg/dL (9-20); Calcium 9.1 mg/dL (8.4-10.2); Hemolysis Index 39
[2020-06-28 08:23] LABS: BUN/Creatinine Ratio 47
[2020-06-28 08:34] LABS: Eosinophils # (Auto) 0.1 K/mm3 (0.0-0.4); Eosinophils % (Auto) 0.5 % (0.0-4.3); Monocytes # (Auto) 0.7 K/mm3 (0.0-0.8); Monocytes % (Auto) 3.7 % (0.0-7.3)
--- NOTE | 2020-06-28 08:53 | Progress Note ---
Assessment and Plan Acute hypoxemic respiratory failure due to COVID-19 Severe COVID infection Severe Sepsis Bilateral pneumonia Acute kidney injury (SEN) with acute tubular necrosis (ATN)-improving h/o Alcohol dependence Elevated liver function tests probably secondary COVID Continue with chest tube to suction, will keep chest tube in while on MVS and hig PEEP. 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 -continue rectal suppositories + senna. Continue to wean supplemental oxygen for O2 sats>90% Wean PEEP down to 8, follow up ABG in am Continue lung protective strategies Wean vasopressor support as tolerated to keep MAP>65 Continue to monitor Triglycerides while on Propofol. CXR as clinically indicated - VAP bundle addressed, aspiration precautions HOB >40 - Continue lung protective strategies, permissive hypercapnic acceptable. - continue bronchodilators with pulmonary hygiene per RT - wean per pulmonary driven protocols otherwise - accuchecks with glycemic control per SSI (While critically ill target blood glucose of 140-180 mg/dL; avoid hypoglycemia) - continue enteral nutritional support at goal rate as tolerated - Prone positioning as tolerated and indicated - Monitor liver function test , avoid hepatotoxic agents - Avoid nephrotoxins, renally dose all medications, conservative fluid management - continue to avoid benzodiazepines, reduce the possibility of delirium - prn analgesia per CPOT score - Maintenance of sleep-wake cycle, avoid delirium - continue to avoid benzodiazepines, reduce the possibility of delirium - aspiration precautions -Stress ulcer prophylaxis - PT/OT/ROM exercises - continue mobility protocols for pressure ulcer prevention -CXR, ABG as clinically indicated -CBC, BMP as clinically indicated -Supportive transfusions to keep HgB >7g/dL - Monitor hemodynamics closely - continue other care per attending / other consultants COVID SPECIFIC INTERVENTIONS - SARS CoV-2 IgG positive patient is NOT a candidate for COVID convalescent plasma -Completed remdesivir -Steroids -Monitor inflammatory markers per facility protocol- ferritin, Ddimer, CRP, LDH -Continue anticoagulation per System Protocol based on d-dimer -Continue contact and airborne isolation .... Re-evaluate in am & prn CONDITION: CRITICAL PROGNOSIS: GUARDED CODE STATUS: FULL CODE The high probability of a clinically significant, sudden or life-threatening deterioration of the [respiratory, cardiovascular, hematologic & neurologic] system(s) required my full and direct attention, intervention and personal management. The aggregate critical care time was [32] minutes without overlap. Time includes spent on; [x] Data Review and interpretation [x] Patient assessment and monitoring of vital signs [x] Documentation [x] Medication orders and management Subjective Date of service: 06/28/20 Principal diagnosis: Distended Bowel Interval history: Patient is seen today for: Acute hypoxemic respiratory failure due to COVID-19; Severe Sepsis; Bilateral pneumonia; Alcohol dependence; Elevated liver function tests Seen and examined at bedside; 24hour events reviewed; nursing and respiratory care staff consulted; no adverse overnight events reported to me; resting in bed; remains on MVS withdecresing ventilatory requirements, FiO2 at 40% PEEP +10 Better oxygenation and synchrony with sedation. Continues to intermittently require vasopressor support for sedation induced hypotension Remains on sedation- Midazolam , Fentanyl, Propofol Abdominal distension persists, being seen by GI-on a bowel regime Objective Vital Signs - 12hr 06/27/20 06/27/20 06/27/20 21:01 21:15 21:30 Temperature Pulse Rate 78 102 H 107 H Pulse Rate [ From Monitor] Respiratory 17 26 H 33 H Rate Respiratory Rate [ Generalized] Blood Pressure 127/69 133/73 146/79 O2 Sat by Pulse 99 98 95 Oximetry 06/27/20 06/27/20 06/27/20 21:45 21:59 22:00 Temperature Pulse Rate 107 H 112 H 114 H Pulse Rate [ From Monitor] Respiratory 33 H 34 H 33 H Rate Respiratory 29 H Rate [ Generalized] Blood Pressure 152/79 152/79 119/58 O2 Sat by Pulse 93 96 95 Oximetry 06/27/20 06/27/20 06/27/20 22:15 22:30 22:45 Temperature Pulse Rate 113 H 113 H 112 H Pulse Rate [ From Monitor] Respiratory 30 H 27 H 22 Rate Respiratory Rate [ Generalized] Blood Pressure 110/58 85/50 90/50 O2 Sat by Pulse 95 97 97 Oximetry 06/27/20 06/27/20 06/27/20 23:00 23:15 23:30 Temperature Pulse Rate 111 H 111 H 109 H Pulse Rate [ From Monitor] Respiratory 24 21 17 Rate Respiratory Rate [ Generalized] Blood Pressure 82/50 92/50 86/52 O2 Sat by Pulse 98 98 99 Oximetry 06/27/20 06/27/20 06/28/20 23:44 23:45 00:00 Temperature 98.5 F Pulse Rate 108 H 107 H 105 H Pulse Rate [ 96 H From Monitor] Respiratory 16 19 Rate Respiratory Rate [ Generalized] Blood Pressure 93/51 93/51 90/54 O2 Sat by Pulse 98 99 100 Oximetry 06/28/20 06/28/20 06/28/20 00:15 00:30 00:45 Temperature Pulse Rate 103 H 101 H 100 H Pulse Rate [ From Monitor] Respiratory 30 H 30 H 30 H Rate Respiratory Rate [ Generalized] Blood Pressure 87/54 92/55 87/54 O2 Sat by Pulse 100 100 100 Oximetry 06/28/20 06/28/20 06/28/20 01:00 01:15 01:30 Temperature Pulse Rate 96 H 95 H 96 H Pulse Rate [ From Monitor] Respiratory 30 H 30 H 30 H Rate Respiratory Rate [ Generalized] Blood Pressure 89/55 89/59 89/55 O2 Sat by Pulse 100 100 100 Oximetry 06/28/20 06/28/20 06/28/20 01:45 02:00 02:15 Temperature Pulse Rate 95 H 93 H 92 H Pulse Rate [ From Monitor] Respiratory 30 H 30 H 30 H Rate Respiratory Rate [ Generalized] Blood Pressure 88/56 89/55 92/56 O2 Sat by Pulse 100 100 100 Oximetry 06/28/20 06/28/20 06/28/20 02:30 02:45 03:00 Temperature Pulse Rate 92 H 92 H 91 H Pulse Rate [ From Monitor] Respiratory 30 H 30 H 30 H Rate Respiratory Rate [ Generalized] Blood Pressure 93/59 94/56 94/58 O2 Sat by Pulse 100 100 100 Oximetry 06/28/20 06/28/20 06/28/20 03:15 03:30 03:45 Temperature Pulse Rate 91 H 100 H 100 H Pulse Rate [ From Monitor] Respiratory 28 H 24 31 H Rate Respiratory Rate [ Generalized] Blood Pressure 103/61 115/67 108/60 O2 Sat by Pulse 93 99 98 Oximetry 06/28/20 06/28/20 06/28/20 04:00 04:15 04:31 Temperature 97.6 F Pulse Rate 103 H 110 H 99 H Pulse Rate [ 99 H From Monitor] Respiratory 26 H 25 H 21 Rate Respiratory Rate [ Generalized] Blood Pressure 113/65 118/63 117/91 O2 Sat by Pulse 97 96 Oximetry 12/21/20 12/21/20 12/21/20 04:45 05:00 05:15 Temperature Pulse Rate 106 H 102 H 91 H Pulse Rate [ From Monitor] Respiratory 31 H 30 H 30 H Rate Respiratory Rate [ Generalized] Blood Pressure 126/74 119/75 119/67 O2 Sat by Pulse 100 100 86 Oximetry 06/28/20 06/28/20 06/28/20 05:30 05:45 06:00 Temperature Pulse Rate 102 H 107 H 105 H Pulse Rate [ From Monitor] Respiratory 31 H 30 H 29 H Rate Respiratory Rate [ Generalized] Blood Pressure 109/70 94/62 92/58 O2 Sat by Pulse 96 100 85 Oximetry 06/28/20 06/28/20 06/28/20 06:15 06:30 06:45 Temperature Pulse Rate 98 H 97 H 98 H Pulse Rate [ From Monitor] Respiratory 14 16 16 Rate Respiratory Rate [ Generalized] Blood Pressure 108/66 101/63 115/66 O2 Sat by Pulse 100 96 95 Oximetry 06/28/20 06/28/20 06/28/20 07:00 07:25 08:04 Temperature Pulse Rate 98 H 95 H 89 Pulse Rate [ From Monitor] Respiratory 14 30 H Rate Respiratory Rate [ Generalized] Blood Pressure 102/67 103/71 O2 Sat by Pulse 96 97 94 Oximetry Constitutional: no acute distress, other (middle aged obese male with mildly increased respiratory effort at rest on MVS) Eyes: non-icteric ENT: oropharynx moist, other (ETT 24 cm CHILO) Neck: supple, no JVD Effort: normal Ascultation: Bilateral: diminished breath sounds, rhonchi (scant), other (right chest tube) Percussion: Bilateral: not dull Cardiovascular: regular rate and rhythm, other (No R/M) Gastrointestinal: normoactive bowel sounds, soft, non-tender, other (distended and firm) Integumentary: normal Extremities: no cyanosis, no edema, pulses normal, no ischemia or petechiae Neurologic: pupils equal and round, other (sedated) Psychiatric: other (sedated) CBC and BMP: 07/05/20 05:18 07/05/20 05:18 ABG, PT/INR, D-dimer: ABG ABG pH 7.446 (7.320-7.450) 06/28/20 04:17 POC ABG pCO2 58.6 mmHg (32.0-48.0) H 06/28/20 04:17 ABG pCO2 69.8 mm Hg 06/22/20 03:50 POC ABG pO2 60.1 mmHg (83-108) L 06/28/20 04:17 ABG pO2 89.6 mm Hg (80.0-90.0) 06/22/20 03:50 POC ABG HCO3 39.4 06/28/20 04:17 ABG O2 Saturation 97.1 % (95.0-99.0) 06/22/20 03:50 PT/INR, D-dimer PT 11.8 Sec. (12.2-14.9) L 06/22/20 14:29 INR 0.88 (0.87-1.13) 06/22/20 14:29 D-Dimer 1887.82 ng/mlDDU (0-234) H 05/20/20 08:16 Abnormal lab findings: Abnormal Labs 05/09/20 05/09/20 05/09/20 12:59 12:59 12:59 WBC 11.8 H RBC Hgb Hct MCV 96 H MCH 34 H MCHC 35 H RDW Lymph % (Auto) 6.9 L Lymph # (Auto) 0.8 L Seg Neutrophils % 87.5 H Seg Neuts % (Manual) Lymphocytes % (Manual) Nucleated RBC % Seg Neutrophils # 10.3 H Seg Neutrophils # Man Lymphocytes # (Manual) Monocytes # (Manual) PT INR APTT D-Dimer ABG pH POC ABG pCO2 POC ABG pO2 ABG pO2 ABG HCO3 ABG O2 Saturation ABG Base Excess ABG Hemoglobin ABG Oxyhemoglobin ABG Sodium ABG Potassium ABG Chloride ABG Glucose Oxyhemoglobin Sodium 130 L Potassium 3.5 L Chloride 86.4 L Carbon Dioxide BUN 33 H Creatinine 2.3 H Glucose 156 H POC Glucose Lactic Acid Calcium Magnesium Ferritin Total Bilirubin 3.40 H Direct Bilirubin 1.7 H AST 385 H ALT 134 H Alkaline Phosphatase Lactate Dehydrogenase C-Reactive Protein Total Protein Albumin 3.0 L Triglycerides Arterial Blood Glucose Arterial Blood Ionized Calcium Urine WBC (Auto) Coronavirus (PCR) SARS-CoV-2 IgG Ab Crossmatch 05/09/20 05/09/20 05/09/20 12:59 12:59 12:59 WBC RBC Hgb Hct MCV MCH MCHC RDW Lymph % (Auto) Lymph # (Auto) Seg Neutrophils % Seg Neuts % (Manual) Lymphocytes % (Manual) Nucleated RBC % Seg Neutrophils # Seg Neutrophils # Man Lymphocytes # (Manual) Monocytes # (Manual) PT INR APTT D-Dimer 3242.51 H ABG pH POC ABG pCO2 POC ABG pO2 ABG pO2 ABG HCO3 ABG O2 Saturation ABG Base Excess ABG Hemoglobin ABG Oxyhemoglobin ABG Sodium ABG Potassium ABG Chloride ABG Glucose Oxyhemoglobin Sodium Potassium Chloride Carbon Dioxide BUN Creatinine Glucose 158 H POC Glucose Lactic Acid 3.50 H* Calcium Magnesium Ferritin Total Bilirubin Direct Bilirubin AST ALT Alkaline Phosphatase Lactate Dehydrogenase 2166 H C-Reactive Protein 39.00 H Total Protein Albumin Triglycerides Arterial Blood Glucose Arterial Blood Ionized Calcium Urine WBC (Auto) Coronavirus (PCR) SARS-CoV-2 IgG Ab Crossmatch 05/09/20 05/09/20 05/09/20 12:59 14:20 14:20 WBC RBC Hgb Hct MCV MCH MCHC RDW Lymph % (Auto) Lymph # (Auto) Seg Neutrophils % Seg Neuts % (Manual) Lymphocytes % (Manual) Nucleated RBC % Seg Neutrophils # Seg Neutrophils # Man Lymphocytes # (Manual) Monocytes # (Manual) PT INR APTT D-Dimer 2861.78 H ABG pH POC ABG pCO2 POC ABG pO2 ABG pO2 ABG HCO3 ABG O2 Saturation ABG Base Excess ABG Hemoglobin ABG Oxyhemoglobin ABG Sodium ABG Potassium ABG Chloride ABG Glucose Oxyhemoglobin Sodium Potassium Chloride Carbon Dioxide BUN Creatinine Glucose POC Glucose Lactic Acid 2.20 H* Calcium Magnesium Ferritin 30490.0 H Total Bilirubin Direct Bilirubin AST ALT Alkaline Phosphatase Lactate Dehydrogenase C-Reactive Protein Total Protein Albumin Triglycerides Arterial Blood Glucose Arterial Blood Ionized Calcium Urine WBC (Auto) Coronavirus (PCR) SARS-CoV-2 IgG Ab Crossmatch 05/09/20 05/09/20 05/09/20 14:20 14:20 15:56 WBC RBC Hgb Hct MCV MCH MCHC RDW Lymph % (Auto) Lymph # (Auto) Seg Neutrophils % Seg Neuts % (Manual) Lymphocytes % (Manual) Nucleated RBC % Seg Neutrophils # Seg Neutrophils # Man Lymphocytes # (Manual) Monocytes # (Manual) PT INR APTT D-Dimer ABG pH POC ABG pCO2 POC ABG pO2 57.3 L ABG pO2 ABG HCO3 ABG O2 Saturation ABG Base Excess ABG Hemoglobin ABG Oxyhemoglobin 86.3 L ABG Sodium 129.9 L ABG Potassium ABG Chloride ABG Glucose 146 H Oxyhemoglobin Sodium Potassium Chloride Carbon Dioxide BUN Creatinine Glucose 143 H POC Glucose Lactic Acid Calcium Magnesium Ferritin 92103.0 H Total Bilirubin Direct Bilirubin AST ALT Alkaline Phosphatase Lactate Dehydrogenase 1953 H C-Reactive Protein 33.50 H Total Protein Albumin Triglycerides Arterial Blood Glucose 146 H Arterial Blood Ionized Calcium 3.9 L Urine WBC (Auto) Coronavirus (PCR) SARS-CoV-2 IgG Ab Crossmatch 05/10/20 05/10/20 05/10/20 10:32 10:32 18:50 WBC 15.4 H RBC Hgb Hct MCV 97 H MCH 33 H MCHC RDW 13.1 L Lymph % (Auto) Lymph # (Auto) Seg Neutrophils % Seg Neuts % (Manual) 89.0 H Lymphocytes % (Manual) 8.0 L Nucleated RBC % Seg Neutrophils # Seg Neutrophils # Man 13.7 H Lymphocytes # (Manual) Monocytes # (Manual) PT INR APTT D-Dimer ABG pH POC ABG pCO2 POC ABG pO2 ABG pO2 ABG HCO3 ABG O2 Saturation ABG Base Excess ABG Hemoglobin ABG Oxyhemoglobin ABG Sodium ABG Potassium ABG Chloride ABG Glucose Oxyhemoglobin Sodium 136 L Potassium Chloride 97.4 L Carbon Dioxide BUN 37 H Creatinine 1.7 H Glucose 209 H POC Glucose Lactic Acid Calcium Magnesium Ferritin > 2000.0 H Total Bilirubin Direct Bilirubin AST ALT Alkaline Phosphatase Lactate Dehydrogenase C-Reactive Protein Total Protein Albumin Triglycerides Arterial Blood Glucose Arterial Blood Ionized Calcium Urine WBC (Auto) Coronavirus (PCR) SARS-CoV-2 IgG Ab Crossmatch 05/10/20 05/10/20 05/10/20 18:50 19:00 Unknown WBC RBC Hgb Hct MCV MCH MCHC RDW Lymph % (Auto) Lymph # (Auto) Seg Neutrophils % Seg Neuts % (Manual) Lymphocytes % (Manual) Nucleated RBC % Seg Neutrophils # Seg Neutrophils # Man Lymphocytes # (Manual) Monocytes # (Manual) PT INR APTT D-Dimer > 50503 H ABG pH POC ABG pCO2 POC ABG pO2 ABG pO2 ABG HCO3 ABG O2 Saturation ABG Base Excess ABG Hemoglobin ABG Oxyhemoglobin ABG Sodium ABG Potassium ABG Chloride ABG Glucose Oxyhemoglobin Sodium Potassium Chloride Carbon Dioxide BUN Creatinine Glucose POC Glucose Lactic Acid Calcium Magnesium Ferritin Total Bilirubin Direct Bilirubin AST ALT Alkaline Phosphatase Lactate Dehydrogenase 1879 H C-Reactive Protein 24.80 H Total Protein Albumin Triglycerides Arterial Blood Glucose Arterial Blood Ionized Calcium Urine WBC (Auto) 11.0 H Coronavirus (PCR) SARS-CoV-2 IgG Ab Crossmatch 05/10/20 05/11/20 05/11/20 Unknown 07:30 07:30 WBC RBC Hgb Hct MCV MCH MCHC RDW Lymph % (Auto) Lymph # (Auto) Seg Neutrophils % Seg Neuts % (Manual) Lymphocytes % (Manual) Nucleated RBC % Seg Neutrophils # Seg Neutrophils # Man Lymphocytes # (Manual) Monocytes # (Manual) PT INR APTT D-Dimer > 2000 H ABG pH POC ABG pCO2 POC ABG pO2 ABG pO2 ABG HCO3 ABG O2 Saturation ABG Base Excess ABG Hemoglobin ABG Oxyhemoglobin ABG Sodium ABG Potassium ABG Chloride ABG Glucose Oxyhemoglobin Sodium Potassium Chloride 96.3 L Carbon Dioxide BUN 36 H Creatinine Glucose 161 H POC Glucose Lactic Acid Calcium 8.3 L Magnesium Ferritin Total Bilirubin 1.50 H Direct Bilirubin 0.6 H AST 178 H ALT 111 H Alkaline Phosphatase Lactate Dehydrogenase C-Reactive Protein Total Protein Albumin 3.0 L Triglycerides Arterial Blood Glucose Arterial Blood Ionized Calcium Urine WBC (Auto) Coronavirus (PCR) Positive A SARS-CoV-2 IgG Ab Crossmatch 05/11/20 05/11/20 05/11/20 07:30 07:30 07:30 WBC RBC Hgb Hct MCV MCH MCHC RDW Lymph % (Auto) Lymph # (Auto) Seg Neutrophils % Seg Neuts % (Manual) Lymphocytes % (Manual) Nucleated RBC % Seg Neutrophils # Seg Neutrophils # Man Lymphocytes # (Manual) Monocytes # (Manual) PT INR APTT D-Dimer ABG pH POC ABG pCO2 POC ABG pO2 ABG pO2 ABG HCO3 ABG O2 Saturation ABG Base Excess ABG Hemoglobin ABG Oxyhemoglobin ABG Sodium ABG Potassium ABG Chloride ABG Glucose Oxyhemoglobin Sodium Potassium Chloride Carbon Dioxide BUN Creatinine Glucose POC Glucose Lactic Acid Calcium Magnesium Ferritin 38249.0 H Total Bilirubin Direct Bilirubin AST ALT Alkaline Phosphatase Lactate Dehydrogenase 1523 H C-Reactive Protein 12.90 H Total Protein Albumin Triglycerides Arterial Blood Glucose Arterial Blood Ionized Calcium Urine WBC (Auto) Coronavirus (PCR) SARS-CoV-2 IgG Ab Reactive A Crossmatch 05/13/20 05/13/20 05/15/20 05:20 05:20 08:15 WBC RBC Hgb Hct MCV MCH MCHC RDW Lymph % (Auto) Lymph # (Auto) Seg Neutrophils % Seg Neuts % (Manual) Lymphocytes % (Manual) Nucleated RBC % Seg Neutrophils # Seg Neutrophils # Man Lymphocytes # (Manual) Monocytes # (Manual) PT INR APTT D-Dimer > 28009 H 5318.28 H ABG pH POC ABG pCO2 POC ABG pO2 ABG pO2 ABG HCO3 ABG O2 Saturation ABG Base Excess ABG Hemoglobin ABG Oxyhemoglobin ABG Sodium ABG Potassium ABG Chloride ABG Glucose Oxyhemoglobin Sodium Potassium Chloride Carbon Dioxide 32 H BUN 30 H Creatinine Glucose 156 H POC Glucose Lactic Acid Calcium Magnesium 2.60 H Ferritin Total Bilirubin 1.40 H Direct Bilirubin AST 121 H ALT 119 H Alkaline Phosphatase Lactate Dehydrogenase 957 H C-Reactive Protein 4.00 H Total Protein Albumin 3.0 L Triglycerides Arterial Blood Glucose Arterial Blood Ionized Calcium Urine WBC (Auto) Coronavirus (PCR) SARS-CoV-2 IgG Ab Crossmatch 05/15/20 05/15/20 05/15/20 08:15 08:15 08:15 WBC 12.4 H RBC Hgb Hct MCV 98 H MCH 33 H MCHC RDW Lymph % (Auto) 9.7 L Lymph # (Auto) Seg Neutrophils % 86.8 H Seg Neuts % (Manual) Lymphocytes % (Manual) Nucleated RBC % Seg Neutrophils # 10.8 H Seg Neutrophils # Man Lymphocytes # (Manual) Monocytes # (Manual) PT INR APTT D-Dimer ABG pH POC ABG pCO2 POC ABG pO2 ABG pO2 ABG HCO3 ABG O2 Saturation ABG Base Excess ABG Hemoglobin ABG Oxyhemoglobin ABG Sodium ABG Potassium ABG Chloride ABG Glucose Oxyhemoglobin Sodium Potassium Chloride 94.8 L Carbon Dioxide 32 H BUN 22 H Creatinine Glucose 115 H POC Glucose Lactic Acid Calcium 8.3 L Magnesium Ferritin 2494.0 H Total Bilirubin Direct Bilirubin AST 73 H ALT 121 H Alkaline Phosphatase Lactate Dehydrogenase 835 H C-Reactive Protein 3.40 H Total Protein 6.1 L Albumin 3.0 L Triglycerides Arterial Blood Glucose Arterial Blood Ionized Calcium Urine WBC (Auto) Coronavirus (PCR) SARS-CoV-2 IgG Ab Crossmatch 05/17/20 05/17/20 05/17/20 05:50 05:50 05:50 WBC RBC Hgb Hct MCV MCH MCHC RDW Lymph % (Auto) Lymph # (Auto) Seg Neutrophils % Seg Neuts % (Manual) Lymphocytes % (Manual) Nucleated RBC % Seg Neutrophils # Seg Neutrophils # Man Lymphocytes # (Manual) Monocytes # (Manual) PT INR APTT D-Dimer 2911.42 H ABG pH POC ABG pCO2 POC ABG pO2 ABG pO2 ABG HCO3 ABG O2 Saturation ABG Base Excess ABG Hemoglobin ABG Oxyhemoglobin ABG Sodium ABG Potassium ABG Chloride ABG Glucose Oxyhemoglobin Sodium 136 L Potassium Chloride 96.0 L Carbon Dioxide 34 H BUN 22 H Creatinine Glucose 140 H POC Glucose Lactic Acid Calcium Magnesium Ferritin 2082.0 H Total Bilirubin Direct Bilirubin AST ALT 75 H Alkaline Phosphatase Lactate Dehydrogenase 601 H C-Reactive Protein 2.70 H Total Protein Albumin 2.9 L Triglycerides Arterial Blood Glucose Arterial Blood Ionized Calcium Urine WBC (Auto) Coronavirus (PCR) SARS-CoV-2 IgG Ab Crossmatch 05/17/20 05/18/20 05/20/20 05:50 12:22 08:16 WBC RBC Hgb Hct MCV 98 H MCH 33 H MCHC RDW Lymph % (Auto) 8.0 L Lymph # (Auto) 0.8 L Seg Neutrophils % 89.3 H Seg Neuts % (Manual) Lymphocytes % (Manual) Nucleated RBC % Seg Neutrophils # 8.8 H Seg Neutrophils # Man Lymphocytes # (Manual) Monocytes # (Manual) PT INR APTT D-Dimer 1887.82 H ABG pH POC ABG pCO2 POC ABG pO2 ABG pO2 ABG HCO3 ABG O2 Saturation ABG Base Excess ABG Hemoglobin ABG Oxyhemoglobin ABG Sodium ABG Potassium ABG Chloride ABG Glucose Oxyhemoglobin Sodium Potassium Chloride Carbon Dioxide BUN Creatinine Glucose POC Glucose 178 H Lactic Acid Calcium Magnesium Ferritin Total Bilirubin Direct Bilirubin AST ALT Alkaline Phosphatase Lactate Dehydrogenase C-Reactive Protein Total Protein Albumin Triglycerides Arterial Blood Glucose Arterial Blood Ionized Calcium Urine WBC (Auto) Coronavirus (PCR) SARS-CoV-2 IgG Ab Crossmatch 05/20/20 05/20/20 05/21/20 08:16 08:16 21:10 WBC RBC Hgb Hct MCV MCH MCHC RDW Lymph % (Auto) Lymph # (Auto) Seg Neutrophils % Seg Neuts % (Manual) Lymphocytes % (Manual) Nucleated RBC % Seg Neutrophils # Seg Neutrophils # Man Lymphocytes # (Manual) Monocytes # (Manual) PT INR APTT D-Dimer ABG pH 7.483 H POC ABG pCO2 POC ABG pO2 ABG pO2 50.0 L ABG HCO3 27.0 H ABG O2 Saturation 86.2 L ABG Base Excess 3.7 H ABG Hemoglobin ABG Oxyhemoglobin ABG Sodium ABG Potassium ABG Chloride ABG Glucose Oxyhemoglobin 84.2 L Sodium Potassium Chloride Carbon Dioxide BUN Creatinine Glucose POC Glucose Lactic Acid Calcium Magnesium Ferritin 1960.0 H Total Bilirubin Direct Bilirubin AST ALT Alkaline Phosphatase Lactate Dehydrogenase 705 H C-Reactive Protein 3.10 H Total Protein Albumin Triglycerides Arterial Blood Glucose Arterial Blood Ionized Calcium Urine WBC (Auto) Coronavirus (PCR) SARS-CoV-2 IgG Ab Crossmatch 05/22/20 05/22/20 05/22/20 04:01 07:53 07:53 WBC 19.2 H RBC Hgb Hct MCV 98 H MCH 34 H MCHC RDW Lymph % (Auto) Lymph # (Auto) Seg Neutrophils % Seg Neuts % (Manual) 96.0 H Lymphocytes % (Manual) 1.0 L Nucleated RBC % Seg Neutrophils # Seg Neutrophils # Man 18.4 H Lymphocytes # (Manual) 0.2 L Monocytes # (Manual) PT INR APTT D-Dimer ABG pH POC ABG pCO2 53.8 H POC ABG pO2 125.5 H ABG pO2 ABG HCO3 ABG O2 Saturation ABG Base Excess ABG Hemoglobin ABG Oxyhemoglobin ABG Sodium 131.8 L ABG Potassium 4.8 H ABG Chloride 94.0 L ABG Glucose 163 H Oxyhemoglobin Sodium 131 L Potassium Chloride 93.4 L Carbon Dioxide BUN 40 H Creatinine Glucose 176 H POC Glucose Lactic Acid Calcium Magnesium 2.70 H Ferritin Total Bilirubin 1.80 H Direct Bilirubin AST 45 H ALT 116 H Alkaline Phosphatase 181 H Lactate Dehydrogenase C-Reactive Protein Total Protein Albumin 2.6 L Triglycerides Arterial Blood Glucose 163 H Arterial Blood Ionized Calcium 4.5 L Urine WBC (Auto) Coronavirus (PCR) SARS-CoV-2 IgG Ab Crossmatch 05/23/20 05/24/20 05/24/20 04:17 03:07 04:08 WBC RBC Hgb Hct MCV MCH MCHC RDW Lymph % (Auto) Lymph # (Auto) Seg Neutrophils % Seg Neuts % (Manual) Lymphocytes % (Manual) Nucleated RBC % Seg Neutrophils # Seg Neutrophils # Man Lymphocytes # (Manual) Monocytes # (Manual) PT INR APTT D-Dimer ABG pH 7.328 L POC ABG pCO2 POC ABG pO2 ABG pO2 72.8 L 73.4 L ABG HCO3 31.0 H 34.0 H ABG O2 Saturation 93.5 L ABG Base Excess 3.5 H 7.7 H ABG Hemoglobin 13.3 L 12.1 L ABG Oxyhemoglobin ABG Sodium ABG Potassium ABG Chloride ABG Glucose Oxyhemoglobin 91.5 L 94.3 L Sodium Potassium Chloride Carbon Dioxide BUN Creatinine Glucose POC Glucose 155 H Lactic Acid Calcium Magnesium Ferritin Total Bilirubin Direct Bilirubin AST ALT Alkaline Phosphatase Lactate Dehydrogenase C-Reactive Protein Total Protein Albumin Triglycerides Arterial Blood Glucose Arterial Blood Ionized Calcium Urine WBC (Auto) Coronavirus (PCR) SARS-CoV-2 IgG Ab Crossmatch 05/24/20 05/24/20 05/24/20 09:33 12:21 17:52 WBC RBC Hgb Hct MCV MCH MCHC RDW Lymph % (Auto) Lymph # (Auto) Seg Neutrophils % Seg Neuts % (Manual) Lymphocytes % (Manual) Nucleated RBC % Seg Neutrophils # Seg Neutrophils # Man Lymphocytes # (Manual) Monocytes # (Manual) PT INR APTT D-Dimer ABG pH POC ABG pCO2 POC ABG pO2 ABG pO2 ABG HCO3 ABG O2 Saturation ABG Base Excess ABG Hemoglobin ABG Oxyhemoglobin ABG Sodium ABG Potassium ABG Chloride ABG Glucose Oxyhemoglobin Sodium Potassium Chloride Carbon Dioxide 34 H D BUN 28 H Creatinine 0.7 L Glucose 168 H POC Glucose 173 H 164 H Lactic Acid Calcium Magnesium Ferritin Total Bilirubin Direct Bilirubin AST ALT Alkaline Phosphatase Lactate Dehydrogenase C-Reactive Protein Total Protein Albumin Triglycerides Arterial Blood Glucose Arterial Blood Ionized Calcium Urine WBC (Auto) Coronavirus (PCR) SARS-CoV-2 IgG Ab Crossmatch 05/24/20 05/25/20 05/25/20 23:47 04:29 05:46 WBC RBC Hgb Hct MCV MCH MCHC RDW Lymph % (Auto) Lymph # (Auto) Seg Neutrophils % Seg Neuts % (Manual) Lymphocytes % (Manual) Nucleated RBC % Seg Neutrophils # Seg Neutrophils # Man Lymphocytes # (Manual) Monocytes # (Manual) PT INR APTT D-Dimer ABG pH POC ABG pCO2 68.6 H POC ABG pO2 ABG pO2 ABG HCO3 ABG O2 Saturation ABG Base Excess ABG Hemoglobin ABG Oxyhemoglobin ABG Sodium ABG Potassium 4.7 H ABG Chloride ABG Glucose 226 H Oxyhemoglobin Sodium Potassium Chloride Carbon Dioxide BUN Creatinine Glucose POC Glucose 171 H 201 H Lactic Acid Calcium Magnesium Ferritin Total Bilirubin Direct Bilirubin AST ALT Alkaline Phosphatase Lactate Dehydrogenase C-Reactive Protein Total Protein Albumin Triglycerides Arterial Blood Glucose 226 H Arterial Blood Ionized Calcium Urine WBC (Auto) Coronavirus (PCR) SARS-CoV-2 IgG Ab Crossmatch 05/25/20 05/25/20 05/25/20 08:37 08:37 12:38 WBC 12.0 H RBC 3.64 L Hgb Hct MCV 99 H MCH 33 H MCHC RDW Lymph % (Auto) Lymph # (Auto) Seg Neutrophils % Seg Neuts % (Manual) Lymphocytes % (Manual) Nucleated RBC % Seg Neutrophils # Seg Neutrophils # Man Lymphocytes # (Manual) Monocytes # (Manual) PT INR APTT D-Dimer ABG pH POC ABG pCO2 POC ABG pO2 ABG pO2 ABG HCO3 ABG O2 Saturation ABG Base Excess ABG Hemoglobin ABG Oxyhemoglobin ABG Sodium ABG Potassium ABG Chloride ABG Glucose Oxyhemoglobin Sodium Potassium Chloride 97.3 L Carbon Dioxide 35 H BUN 25 H Creatinine 0.7 L Glucose 191 H POC Glucose 182 H Lactic Acid Calcium Magnesium Ferritin Total Bilirubin Direct Bilirubin AST ALT Alkaline Phosphatase Lactate Dehydrogenase C-Reactive Protein Total Protein Albumin Triglycerides Arterial Blood Glucose Arterial Blood Ionized Calcium Urine WBC (Auto) Coronavirus (PCR) SARS-CoV-2 IgG Ab Crossmatch 05/25/20 05/26/20 05/26/20 18:16 00:06 04:50 WBC RBC Hgb Hct MCV MCH MCHC RDW Lymph % (Auto) Lymph # (Auto) Seg Neutrophils % Seg Neuts % (Manual) Lymphocytes % (Manual) Nucleated RBC % Seg Neutrophils # Seg Neutrophils # Man Lymphocytes # (Manual) Monocytes # (Manual) PT INR APTT D-Dimer ABG pH POC ABG pCO2 POC ABG pO2 ABG pO2 221.5 H ABG HCO3 40.4 H ABG O2 Saturation 99.3 H ABG Base Excess 12.8 H ABG Hemoglobin 10.4 L ABG Oxyhemoglobin ABG Sodium ABG Potassium ABG Chloride ABG Glucose Oxyhemoglobin Sodium Potassium Chloride Carbon Dioxide BUN Creatinine Glucose POC Glucose 176 H 152 H Lactic Acid Calcium Magnesium Ferritin Total Bilirubin Direct Bilirubin AST ALT Alkaline Phosphatase Lactate Dehydrogenase C-Reactive Protein Total Protein Albumin Triglycerides Arterial Blood Glucose Arterial Blood Ionized Calcium Urine WBC (Auto) Coronavirus (PCR) SARS-CoV-2 IgG Ab Crossmatch 05/26/20 05/26/20 05/26/20 06:11 07:51 07:51 WBC 13.4 H RBC 3.64 L Hgb Hct MCV 98 H MCH 33 H MCHC RDW Lymph % (Auto) Lymph # (Auto) Seg Neutrophils % Seg Neuts % (Manual) Lymphocytes % (Manual) Nucleated RBC % Seg Neutrophils # Seg Neutrophils # Man Lymphocytes # (Manual) Monocytes # (Manual) PT INR APTT D-Dimer ABG pH POC ABG pCO2 POC ABG pO2 ABG pO2 ABG HCO3 ABG O2 Saturation ABG Base Excess ABG Hemoglobin ABG Oxyhemoglobin ABG Sodium ABG Potassium ABG Chloride ABG Glucose Oxyhemoglobin Sodium Potassium Chloride 96.6 L Carbon Dioxide 39 H BUN 29 H Creatinine 0.7 L Glucose 174 H POC Glucose 165 H Lactic Acid Calcium Magnesium Ferritin Total Bilirubin Direct Bilirubin AST ALT Alkaline Phosphatase Lactate Dehydrogenase C-Reactive Protein Total Protein Albumin Triglycerides Arterial Blood Glucose Arterial Blood Ionized Calcium Urine WBC (Auto) Coronavirus (PCR) SARS-CoV-2 IgG Ab Crossmatch 05/26/20 05/27/20 05/27/20 23:23 03:43 05:29 WBC RBC Hgb Hct MCV MCH MCHC RDW Lymph % (Auto) Lymph # (Auto) Seg Neutrophils % Seg Neuts % (Manual) Lymphocytes % (Manual) Nucleated RBC % Seg Neutrophils # Seg Neutrophils # Man Lymphocytes # (Manual) Monocytes # (Manual) PT INR APTT D-Dimer ABG pH 7.480 H POC ABG pCO2 52.4 H POC ABG pO2 61.4 L ABG pO2 ABG HCO3 ABG O2 Saturation ABG Base Excess ABG Hemoglobin ABG Oxyhemoglobin ABG Sodium 134.9 L ABG Potassium ABG Chloride 95.0 L ABG Glucose 221 H Oxyhemoglobin Sodium Potassium Chloride Carbon Dioxide BUN Creatinine Glucose POC Glucose 169 H 227 H Lactic Acid Calcium Magnesium Ferritin Total Bilirubin Direct Bilirubin AST ALT Alkaline Phosphatase Lactate Dehydrogenase C-Reactive Protein Total Protein Albumin Triglycerides Arterial Blood Glucose 221 H Arterial Blood Ionized Calcium 4.5 L Urine WBC (Auto) Coronavirus (PCR) SARS-CoV-2 IgG Ab Crossmatch 05/27/20 05/27/20 05/27/20 07:19 12:18 13:50 WBC RBC Hgb Hct MCV MCH MCHC RDW Lymph % (Auto) Lymph # (Auto) Seg Neutrophils % Seg Neuts % (Manual) Lymphocytes % (Manual) Nucleated RBC % Seg Neutrophils # Seg Neutrophils # Man Lymphocytes # (Manual) Monocytes # (Manual) PT INR APTT D-Dimer ABG pH POC ABG pCO2 POC ABG pO2 ABG pO2 ABG HCO3 ABG O2 Saturation ABG Base Excess ABG Hemoglobin ABG Oxyhemoglobin ABG Sodium ABG Potassium ABG Chloride ABG Glucose Oxyhemoglobin Sodium Potassium Chloride Carbon Dioxide BUN Creatinine Glucose POC Glucose 114 H 148 H Lactic Acid Calcium Magnesium Ferritin Total Bilirubin Direct Bilirubin AST ALT Alkaline Phosphatase Lactate Dehydrogenase C-Reactive Protein Total Protein Albumin Triglycerides 247 H Arterial Blood Glucose Arterial Blood Ionized Calcium Urine WBC (Auto) Coronavirus (PCR) SARS-CoV-2 IgG Ab Crossmatch 05/28/20 05/28/20 05/28/20 00:13 04:16 05:22 WBC RBC Hgb Hct MCV MCH MCHC RDW Lymph % (Auto) Lymph # (Auto) Seg Neutrophils % Seg Neuts % (Manual) Lymphocytes % (Manual) Nucleated RBC % Seg Neutrophils # Seg Neutrophils # Man Lymphocytes # (Manual) Monocytes # (Manual) PT INR APTT D-Dimer ABG pH POC ABG pCO2 64.4 H POC ABG pO2 60.5 L ABG pO2 ABG HCO3 ABG O2 Saturation ABG Base Excess ABG Hemoglobin ABG Oxyhemoglobin ABG Sodium ABG Potassium ABG Chloride 95.0 L ABG Glucose 209 H Oxyhemoglobin Sodium Potassium Chloride Carbon Dioxide BUN Creatinine Glucose POC Glucose 155 H 186 H Lactic Acid Calcium Magnesium Ferritin Total Bilirubin Direct Bilirubin AST ALT Alkaline Phosphatase Lactate Dehydrogenase C-Reactive Protein Total Protein Albumin Triglycerides Arterial Blood Glucose 209 H Arterial Blood Ionized Calcium Urine WBC (Auto) Coronavirus (PCR) SARS-CoV-2 IgG Ab Crossmatch 05/28/20 05/28/20 05/29/20 12:45 17:39 00:37 WBC RBC Hgb Hct MCV MCH MCHC RDW Lymph % (Auto) Lymph # (Auto) Seg Neutrophils % Seg Neuts % (Manual) Lymphocytes % (Manual) Nucleated RBC % Seg Neutrophils # Seg Neutrophils # Man Lymphocytes # (Manual) Monocytes # (Manual) PT INR APTT D-Dimer ABG pH POC ABG pCO2 POC ABG pO2 ABG pO2 ABG HCO3 ABG O2 Saturation ABG Base Excess ABG Hemoglobin ABG Oxyhemoglobin ABG Sodium ABG Potassium ABG Chloride ABG Glucose Oxyhemoglobin Sodium Potassium Chloride Carbon Dioxide BUN Creatinine Glucose POC Glucose 143 H 164 H 221 H Lactic Acid Calcium Magnesium Ferritin Total Bilirubin Direct Bilirubin AST ALT Alkaline Phosphatase Lactate Dehydrogenase C-Reactive Protein Total Protein Albumin Triglycerides Arterial Blood Glucose Arterial Blood Ionized Calcium Urine WBC (Auto) Coronavirus (PCR) SARS-CoV-2 IgG Ab Crossmatch 05/29/20 05/29/20 05/29/20 04:15 05:33 12:34 WBC RBC Hgb Hct MCV MCH MCHC RDW Lymph % (Auto) Lymph # (Auto) Seg Neutrophils % Seg Neuts % (Manual) Lymphocytes % (Manual) Nucleated RBC % Seg Neutrophils # Seg Neutrophils # Man Lymphocytes # (Manual) Monocytes # (Manual) PT INR APTT D-Dimer ABG pH 7.463 H POC ABG pCO2 56.3 H POC ABG pO2 81.2 L ABG pO2 ABG HCO3 ABG O2 Saturation ABG Base Excess ABG Hemoglobin ABG Oxyhemoglobin ABG Sodium ABG Potassium ABG Chloride 96.0 L ABG Glucose 194 H Oxyhemoglobin Sodium Potassium Chloride Carbon Dioxide BUN Creatinine Glucose POC Glucose 133 H 221 H Lactic Acid Calcium Magnesium Ferritin Total Bilirubin Direct Bilirubin AST ALT Alkaline Phosphatase Lactate Dehydrogenase C-Reactive Protein Total Protein Albumin Triglycerides Arterial Blood Glucose 194 H Arterial Blood Ionized Calcium 4.5 L Urine WBC (Auto) Coronavirus (PCR) SARS-CoV-2 IgG Ab Crossmatch 05/29/20 05/30/20 05/30/20 18:07 00:12 05:38 WBC RBC Hgb Hct MCV MCH MCHC RDW Lymph % (Auto) Lymph # (Auto) Seg Neutrophils % Seg Neuts % (Manual) Lymphocytes % (Manual) Nucleated RBC % Seg Neutrophils # Seg Neutrophils # Man Lymphocytes # (Manual) Monocytes # (Manual) PT INR APTT D-Dimer ABG pH POC ABG pCO2 POC ABG pO2 ABG pO2 ABG HCO3 ABG O2 Saturation ABG Base Excess ABG Hemoglobin ABG Oxyhemoglobin ABG Sodium ABG Potassium ABG Chloride ABG Glucose Oxyhemoglobin Sodium Potassium Chloride Carbon Dioxide BUN Creatinine Glucose POC Glucose 162 H 190 H 208 H Lactic Acid Calcium Magnesium Ferritin Total Bilirubin Direct Bilirubin AST ALT Alkaline Phosphatase Lactate Dehydrogenase C-Reactive Protein Total Protein Albumin Triglycerides Arterial Blood Glucose Arterial Blood Ionized Calcium Urine WBC (Auto) Coronavirus (PCR) SARS-CoV-2 IgG Ab Crossmatch 05/30/20 05/30/20 05/30/20 09:30 11:35 11:54 WBC 12.4 H RBC 3.48 L Hgb 11.3 L Hct 34.6 L MCV 99 H MCH 33 H MCHC RDW Lymph % (Auto) Lymph # (Auto) Seg Neutrophils % Seg Neuts % (Manual) Lymphocytes % (Manual) Nucleated RBC % Seg Neutrophils # Seg Neutrophils # Man Lymphocytes # (Manual) Monocytes # (Manual) PT INR APTT D-Dimer ABG pH 7.455 H POC ABG pCO2 57.5 H POC ABG pO2 81.5 L ABG pO2 ABG HCO3 ABG O2 Saturation ABG Base Excess ABG Hemoglobin ABG Oxyhemoglobin ABG Sodium ABG Potassium ABG Chloride 96.0 L ABG Glucose 204 H Oxyhemoglobin Sodium Potassium Chloride Carbon Dioxide BUN Creatinine Glucose POC Glucose 183 H Lactic Acid Calcium Magnesium Ferritin Total Bilirubin Direct Bilirubin AST ALT Alkaline Phosphatase Lactate Dehydrogenase C-Reactive Protein Total Protein Albumin Triglycerides Arterial Blood Glucose 204 H Arterial Blood Ionized Calcium Urine WBC (Auto) Coronavirus (PCR) SARS-CoV-2 IgG Ab Crossmatch 05/30/20 05/31/20 05/31/20 18:01 00:10 03:22 WBC RBC Hgb Hct MCV MCH MCHC RDW Lymph % (Auto) Lymph # (Auto) Seg Neutrophils % Seg Neuts % (Manual) Lymphocytes % (Manual) Nucleated RBC % Seg Neutrophils # Seg Neutrophils # Man Lymphocytes # (Manual) Monocytes # (Manual) PT INR APTT D-Dimer ABG pH POC ABG pCO2 60.4 H POC ABG pO2 71.5 L ABG pO2 ABG HCO3 ABG O2 Saturation ABG Base Excess ABG Hemoglobin ABG Oxyhemoglobin ABG Sodium ABG Potassium ABG Chloride 96.0 L ABG Glucose 169 H Oxyhemoglobin Sodium Potassium Chloride Carbon Dioxide BUN Creatinine Glucose POC Glucose 184 H 135 H Lactic Acid Calcium Magnesium Ferritin Total Bilirubin Direct Bilirubin AST ALT Alkaline Phosphatase Lactate Dehydrogenase C-Reactive Protein Total Protein Albumin Triglycerides Arterial Blood Glucose 169 H Arterial Blood Ionized Calcium 4.5 L Urine WBC (Auto) Coronavirus (PCR) SARS-CoV-2 IgG Ab Crossmatch 05/31/20 05/31/20 05/31/20 05:24 11:18 14:41 WBC RBC Hgb Hct MCV MCH MCHC RDW Lymph % (Auto) Lymph # (Auto) Seg Neutrophils % Seg Neuts % (Manual) Lymphocytes % (Manual) Nucleated RBC % Seg Neutrophils # Seg Neutrophils # Man Lymphocytes # (Manual) Monocytes # (Manual) PT INR APTT D-Dimer ABG pH POC ABG pCO2 POC ABG pO2 ABG pO2 ABG HCO3 ABG O2 Saturation ABG Base Excess ABG Hemoglobin ABG Oxyhemoglobin ABG Sodium ABG Potassium ABG Chloride ABG Glucose Oxyhemoglobin Sodium Potassium Chloride 96.8 L Carbon Dioxide 37 H BUN 31 H Creatinine 0.6 L Glucose 213 H POC Glucose 164 H 208 H Lactic Acid Calcium Magnesium Ferritin Total Bilirubin Direct Bilirubin AST ALT Alkaline Phosphatase Lactate Dehydrogenase C-Reactive Protein Total Protein Albumin Triglycerides Arterial Blood Glucose Arterial Blood Ionized Calcium Urine WBC (Auto) Coronavirus (PCR) SARS-CoV-2 IgG Ab Crossmatch 05/31/20 05/31/20 06/01/20 17:37 23:47 03:48 WBC RBC Hgb Hct MCV MCH MCHC RDW Lymph % (Auto) Lymph # (Auto) Seg Neutrophils % Seg Neuts % (Manual) Lymphocytes % (Manual) Nucleated RBC % Seg Neutrophils # Seg Neutrophils # Man Lymphocytes # (Manual) Monocytes # (Manual) PT INR APTT D-Dimer ABG pH POC ABG pCO2 59.7 H POC ABG pO2 73.9 L ABG pO2 ABG HCO3 ABG O2 Saturation ABG Base Excess ABG Hemoglobin ABG Oxyhemoglobin ABG Sodium ABG Potassium ABG Chloride 95.0 L ABG Glucose 256 H Oxyhemoglobin Sodium Potassium Chloride Carbon Dioxide BUN Creatinine Glucose POC Glucose 168 H 178 H Lactic Acid Calcium Magnesium Ferritin Total Bilirubin Direct Bilirubin AST ALT Alkaline Phosphatase Lactate Dehydrogenase C-Reactive Protein Total Protein Albumin Triglycerides Arterial Blood Glucose 256 H Arterial Blood Ionized Calcium Urine WBC (Auto) Coronavirus (PCR) SARS-CoV-2 IgG Ab Crossmatch 06/01/20 06/01/20 06/01/20 05:01 07:47 07:47 WBC 14.4 H RBC 3.46 L Hgb 11.1 L Hct 34.3 L MCV 99 H MCH MCHC RDW Lymph % (Auto) Lymph # (Auto) Seg Neutrophils % Seg Neuts % (Manual) 86.0 H Lymphocytes % (Manual) 9.0 L Nucleated RBC % Seg Neutrophils # Seg Neutrophils # Man 12.4 H Lymphocytes # (Manual) Monocytes # (Manual) PT INR APTT D-Dimer ABG pH POC ABG pCO2 POC ABG pO2 ABG pO2 ABG HCO3 ABG O2 Saturation ABG Base Excess ABG Hemoglobin ABG Oxyhemoglobin ABG Sodium ABG Potassium ABG Chloride ABG Glucose Oxyhemoglobin Sodium Potassium Chloride Carbon Dioxide BUN Creatinine Glucose POC Glucose 197 H Lactic Acid Calcium Magnesium Ferritin Total Bilirubin Direct Bilirubin AST ALT Alkaline Phosphatase Lactate Dehydrogenase C-Reactive Protein Total Protein Albumin Triglycerides 244 H Arterial Blood Glucose Arterial Blood Ionized Calcium Urine WBC (Auto) Coronavirus (PCR) SARS-CoV-2 IgG Ab Crossmatch 06/01/20 06/01/20 06/01/20 07:47 11:46 18:15 WBC RBC Hgb Hct MCV MCH MCHC RDW Lymph % (Auto) Lymph # (Auto) Seg Neutrophils % Seg Neuts % (Manual) Lymphocytes % (Manual) Nucleated RBC % Seg Neutrophils # Seg Neutrophils # Man Lymphocytes # (Manual) Monocytes # (Manual) PT INR APTT D-Dimer ABG pH POC ABG pCO2 POC ABG pO2 ABG pO2 ABG HCO3 ABG O2 Saturation ABG Base Excess ABG Hemoglobin ABG Oxyhemoglobin ABG Sodium ABG Potassium ABG Chloride ABG Glucose Oxyhemoglobin Sodium Potassium Chloride 95.4 L Carbon Dioxide 35 H BUN 30 H Creatinine 0.5 L Glucose 214 H POC Glucose 181 H 221 H Lactic Acid Calcium Magnesium Ferritin Total Bilirubin Direct Bilirubin AST 54 H ALT 235 H Alkaline Phosphatase Lactate Dehydrogenase C-Reactive Protein Total Protein Albumin 2.9 L Triglycerides Arterial Blood Glucose Arterial Blood Ionized Calcium Urine WBC (Auto) Coronavirus (PCR) SARS-CoV-2 IgG Ab Crossmatch 06/01/20 06/02/20 06/02/20 23:12 04:00 05:31 WBC RBC Hgb Hct MCV MCH MCHC RDW Lymph % (Auto) Lymph # (Auto) Seg Neutrophils % Seg Neuts % (Manual) Lymphocytes % (Manual) Nucleated RBC % Seg Neutrophils # Seg Neutrophils # Man Lymphocytes # (Manual) Monocytes # (Manual) PT INR APTT D-Dimer ABG pH 7.465 H POC ABG pCO2 POC ABG pO2 ABG pO2 203.4 H ABG HCO3 41.2 H ABG O2 Saturation 99.3 H ABG Base Excess 15.1 H ABG Hemoglobin 11.5 L ABG Oxyhemoglobin ABG Sodium ABG Potassium ABG Chloride ABG Glucose Oxyhemoglobin Sodium Potassium Chloride Carbon Dioxide BUN Creatinine Glucose POC Glucose 197 H 184 H Lactic Acid Calcium Magnesium Ferritin Total Bilirubin Direct Bilirubin AST ALT Alkaline Phosphatase Lactate Dehydrogenase C-Reactive Protein Total Protein Albumin Triglycerides Arterial Blood Glucose Arterial Blood Ionized Calcium Urine WBC (Auto) Coronavirus (PCR) SARS-CoV-2 IgG Ab Crossmatch 06/02/20 06/02/20 06/02/20 11:49 18:06 23:00 WBC RBC Hgb Hct MCV MCH MCHC RDW Lymph % (Auto) Lymph # (Auto) Seg Neutrophils % Seg Neuts % (Manual) Lymphocytes % (Manual) Nucleated RBC % Seg Neutrophils # Seg Neutrophils # Man Lymphocytes # (Manual) Monocytes # (Manual) PT INR APTT D-Dimer ABG pH POC ABG pCO2 POC ABG pO2 ABG pO2 ABG HCO3 ABG O2 Saturation ABG Base Excess ABG Hemoglobin ABG Oxyhemoglobin ABG Sodium ABG Potassium ABG Chloride ABG Glucose Oxyhemoglobin Sodium Potassium Chloride Carbon Dioxide BUN Creatinine Glucose POC Glucose 195 H 177 H 228 H Lactic Acid Calcium Magnesium Ferritin Total Bilirubin Direct Bilirubin AST ALT Alkaline Phosphatase Lactate Dehydrogenase C-Reactive Protein Total Protein Albumin Triglycerides Arterial Blood Glucose Arterial Blood Ionized Calcium Urine WBC (Auto) Coronavirus (PCR) SARS-CoV-2 IgG Ab Crossmatch 06/03/20 06/03/20 06/03/20 03:58 05:19 12:21 WBC RBC Hgb Hct MCV MCH MCHC RDW Lymph % (Auto) Lymph # (Auto) Seg Neutrophils % Seg Neuts % (Manual) Lymphocytes % (Manual) Nucleated RBC % Seg Neutrophils # Seg Neutrophils # Man Lymphocytes # (Manual) Monocytes # (Manual) PT INR APTT D-Dimer ABG pH POC ABG pCO2 POC ABG pO2 ABG pO2 171.0 H ABG HCO3 42.8 H ABG O2 Saturation ABG Base Excess 15.6 H ABG Hemoglobin 12.3 L ABG Oxyhemoglobin ABG Sodium ABG Potassium ABG Chloride ABG Glucose Oxyhemoglobin Sodium Potassium Chloride Carbon Dioxide BUN Creatinine Glucose POC Glucose 122 H 207 H Lactic Acid Calcium Magnesium Ferritin Total Bilirubin Direct Bilirubin AST ALT Alkaline Phosphatase Lactate Dehydrogenase C-Reactive Protein Total Protein Albumin Triglycerides Arterial Blood Glucose Arterial Blood Ionized Calcium Urine WBC (Auto) Coronavirus (PCR) SARS-CoV-2 IgG Ab Crossmatch 06/03/20 06/03/20 06/04/20 17:27 23:50 03:55 WBC RBC Hgb Hct MCV MCH MCHC RDW Lymph % (Auto) Lymph # (Auto) Seg Neutrophils % Seg Neuts % (Manual) Lymphocytes % (Manual) Nucleated RBC % Seg Neutrophils # Seg Neutrophils # Man Lymphocytes # (Manual) Monocytes # (Manual) PT INR APTT D-Dimer ABG pH POC ABG pCO2 POC ABG pO2 ABG pO2 117.2 H ABG HCO3 42.4 H ABG O2 Saturation ABG Base Excess 15.3 H ABG Hemoglobin 10.5 L ABG Oxyhemoglobin ABG Sodium ABG Potassium ABG Chloride ABG Glucose Oxyhemoglobin Sodium Potassium Chloride Carbon Dioxide BUN Creatinine Glucose POC Glucose 157 H 214 H Lactic Acid Calcium Magnesium Ferritin Total Bilirubin Direct Bilirubin AST ALT Alkaline Phosphatase Lactate Dehydrogenase C-Reactive Protein Total Protein Albumin Triglycerides Arterial Blood Glucose Arterial Blood Ionized Calcium Urine WBC (Auto) Coronavirus (PCR) SARS-CoV-2 IgG Ab Crossmatch 06/04/20 06/04/20 06/04/20 05:49 11:41 17:30 WBC RBC Hgb Hct MCV MCH MCHC RDW Lymph % (Auto) Lymph # (Auto) Seg Neutrophils % Seg Neuts % (Manual) Lymphocytes % (Manual) Nucleated RBC % Seg Neutrophils # Seg Neutrophils # Man Lymphocytes # (Manual) Monocytes # (Manual) PT INR APTT D-Dimer ABG pH POC ABG pCO2 POC ABG pO2 ABG pO2 ABG HCO3 ABG O2 Saturation ABG Base Excess ABG Hemoglobin ABG Oxyhemoglobin ABG Sodium ABG Potassium ABG Chloride ABG Glucose Oxyhemoglobin Sodium Potassium Chloride Carbon Dioxide BUN Creatinine Glucose POC Glucose 149 H 233 H 156 H Lactic Acid Calcium Magnesium Ferritin Total Bilirubin Direct Bilirubin AST ALT Alkaline Phosphatase Lactate Dehydrogenase C-Reactive Protein Total Protein Albumin Triglycerides Arterial Blood Glucose Arterial Blood Ionized Calcium Urine WBC (Auto) Coronavirus (PCR) SARS-CoV-2 IgG Ab Crossmatch 06/04/20 06/04/20 06/04/20 19:01 20:53 23:41 WBC RBC 3.18 L Hgb 10.8 L Hct 31.8 L MCV 100 H MCH 34 H MCHC RDW Lymph % (Auto) Lymph # (Auto) Seg Neutrophils % Seg Neuts % (Manual) 86.0 H Lymphocytes % (Manual) 10.0 L Nucleated RBC % 1.0 H Seg Neutrophils # Seg Neutrophils # Man 8.5 H Lymphocytes # (Manual) 1.0 L Monocytes # (Manual) PT INR APTT D-Dimer ABG pH POC ABG pCO2 POC ABG pO2 ABG pO2 ABG HCO3 ABG O2 Saturation ABG Base Excess ABG Hemoglobin ABG Oxyhemoglobin ABG Sodium ABG Potassium ABG Chloride ABG Glucose Oxyhemoglobin Sodium Potassium 3.4 L D Chloride 96.5 L Carbon Dioxide 41 H* BUN 27 H Creatinine 0.5 L Glucose 173 H POC Glucose 217 H Lactic Acid Calcium Magnesium Ferritin Total Bilirubin Direct Bilirubin AST ALT Alkaline Phosphatase Lactate Dehydrogenase C-Reactive Protein Total Protein Albumin Triglycerides Arterial Blood Glucose Arterial Blood Ionized Calcium Urine WBC (Auto) Coronavirus (PCR) SARS-CoV-2 IgG Ab Crossmatch 06/05/20 06/05/20 06/05/20 06:05 11:54 12:35 WBC RBC Hgb Hct MCV MCH MCHC RDW Lymph % (Auto) Lymph # (Auto) Seg Neutrophils % Seg Neuts % (Manual) Lymphocytes % (Manual) Nucleated RBC % Seg Neutrophils # Seg Neutrophils # Man Lymphocytes # (Manual) Monocytes # (Manual) PT INR APTT D-Dimer ABG pH POC ABG pCO2 POC ABG pO2 ABG pO2 127.9 H ABG HCO3 41.1 H ABG O2 Saturation ABG Base Excess 13.0 H ABG Hemoglobin 13.4 L ABG Oxyhemoglobin ABG Sodium ABG Potassium ABG Chloride ABG Glucose Oxyhemoglobin Sodium Potassium Chloride Carbon Dioxide BUN Creatinine Glucose POC Glucose 137 H 211 H Lactic Acid Calcium Magnesium Ferritin Total Bilirubin Direct Bilirubin AST ALT Alkaline Phosphatase Lactate Dehydrogenase C-Reactive Protein Total Protein Albumin Triglycerides Arterial Blood Glucose Arterial Blood Ionized Calcium Urine WBC (Auto) Coronavirus (PCR) SARS-CoV-2 IgG Ab Crossmatch 06/05/20 06/05/20 06/06/20 17:03 23:49 04:42 WBC RBC Hgb Hct MCV MCH MCHC RDW Lymph % (Auto) Lymph # (Auto) Seg Neutrophils % Seg Neuts % (Manual) Lymphocytes % (Manual) Nucleated RBC % Seg Neutrophils # Seg Neutrophils # Man Lymphocytes # (Manual) Monocytes # (Manual) PT INR APTT D-Dimer ABG pH POC ABG pCO2 56.1 H POC ABG pO2 52.5 L ABG pO2 ABG HCO3 ABG O2 Saturation ABG Base Excess ABG Hemoglobin 11.7 L ABG Oxyhemoglobin ABG Sodium ABG Potassium 3.3 L ABG Chloride 95.0 L ABG Glucose 156 H Oxyhemoglobin Sodium Potassium Chloride Carbon Dioxide BUN Creatinine Glucose POC Glucose 159 H 194 H Lactic Acid Calcium Magnesium Ferritin Total Bilirubin Direct Bilirubin AST ALT Alkaline Phosphatase Lactate Dehydrogenase C-Reactive Protein Total Protein Albumin Triglycerides Arterial Blood Glucose 156 H Arterial Blood Ionized Calcium Urine WBC (Auto) Coronavirus (PCR) SARS-CoV-2 IgG Ab Crossmatch 06/06/20 06/06/20 06/06/20 05:57 12:06 17:38 WBC RBC Hgb Hct MCV MCH MCHC RDW Lymph % (Auto) Lymph # (Auto) Seg Neutrophils % Seg Neuts % (Manual) Lymphocytes % (Manual) Nucleated RBC % Seg Neutrophils # Seg Neutrophils # Man Lymphocytes # (Manual) Monocytes # (Manual) PT INR APTT D-Dimer ABG pH POC ABG pCO2 POC ABG pO2 ABG pO2 ABG HCO3 ABG O2 Saturation ABG Base Excess ABG Hemoglobin ABG Oxyhemoglobin ABG Sodium ABG Potassium ABG Chloride ABG Glucose Oxyhemoglobin Sodium Potassium Chloride Carbon Dioxide BUN Creatinine Glucose POC Glucose 144 H 230 H 162 H Lactic Acid Calcium Magnesium Ferritin Total Bilirubin Direct Bilirubin AST ALT Alkaline Phosphatase Lactate Dehydrogenase C-Reactive Protein Total Protein Albumin Triglycerides Arterial Blood Glucose Arterial Blood Ionized Calcium Urine WBC (Auto) Coronavirus (PCR) SARS-CoV-2 IgG Ab Crossmatch 06/06/20 06/07/20 06/07/20 23:50 04:34 06:03 WBC RBC Hgb Hct MCV MCH MCHC RDW Lymph % (Auto) Lymph # (Auto) Seg Neutrophils % Seg Neuts % (Manual) Lymphocytes % (Manual) Nucleated RBC % Seg Neutrophils # Seg Neutrophils # Man Lymphocytes # (Manual) Monocytes # (Manual) PT INR APTT D-Dimer ABG pH 7.511 H POC ABG pCO2 53.5 H POC ABG pO2 114.5 H ABG pO2 ABG HCO3 ABG O2 Saturation ABG Base Excess ABG Hemoglobin 9.4 L ABG Oxyhemoglobin ABG Sodium 134.5 L ABG Potassium ABG Chloride 94.0 L ABG Glucose 186 H Oxyhemoglobin Sodium Potassium Chloride Carbon Dioxide BUN Creatinine Glucose POC Glucose 181 H 155 H Lactic Acid Calcium Magnesium Ferritin Total Bilirubin Direct Bilirubin AST ALT Alkaline Phosphatase Lactate Dehydrogenase C-Reactive Protein Total Protein Albumin Triglycerides Arterial Blood Glucose 186 H Arterial Blood Ionized Calcium 4.5 L Urine WBC (Auto) Coronavirus (PCR) SARS-CoV-2 IgG Ab Crossmatch 06/07/20 06/07/20 06/07/20 13:41 14:58 14:58 WBC RBC 2.72 L Hgb 9.3 L Hct 27.2 L MCV 100 H MCH 34 H MCHC RDW Lymph % (Auto) Lymph # (Auto) Seg Neutrophils % Seg Neuts % (Manual) Lymphocytes % (Manual) Nucleated RBC % Seg Neutrophils # Seg Neutrophils # Man Lymphocytes # (Manual) Monocytes # (Manual) PT INR APTT D-Dimer ABG pH POC ABG pCO2 POC ABG pO2 ABG pO2 ABG HCO3 ABG O2 Saturation ABG Base Excess ABG Hemoglobin ABG Oxyhemoglobin ABG Sodium ABG Potassium ABG Chloride ABG Glucose Oxyhemoglobin Sodium Potassium Chloride 93.5 L Carbon Dioxide 39 H BUN 22 H Creatinine 0.4 L Glucose 188 H POC Glucose 201 H Lactic Acid Calcium Magnesium Ferritin Total Bilirubin Direct Bilirubin AST 61 H ALT 273 H Alkaline Phosphatase Lactate Dehydrogenase C-Reactive Protein Total Protein 5.9 L Albumin 2.7 L Triglycerides Arterial Blood Glucose Arterial Blood Ionized Calcium Urine WBC (Auto) Coronavirus (PCR) SARS-CoV-2 IgG Ab Crossmatch 06/07/20 06/08/20 06/08/20 23:18 05:31 12:07 WBC RBC Hgb Hct MCV MCH MCHC RDW Lymph % (Auto) Lymph # (Auto) Seg Neutrophils % Seg Neuts % (Manual) Lymphocytes % (Manual) Nucleated RBC % Seg Neutrophils # Seg Neutrophils # Man Lymphocytes # (Manual) Monocytes # (Manual) PT INR APTT D-Dimer ABG pH POC ABG pCO2 POC ABG pO2 ABG pO2 ABG HCO3 ABG O2 Saturation ABG Base Excess ABG Hemoglobin ABG Oxyhemoglobin ABG Sodium ABG Potassium ABG Chloride ABG Glucose Oxyhemoglobin Sodium Potassium Chloride Carbon Dioxide BUN Creatinine Glucose POC Glucose 214 H 129 H 179 H Lactic Acid Calcium Magnesium Ferritin Total Bilirubin Direct Bilirubin AST ALT Alkaline Phosphatase Lactate Dehydrogenase C-Reactive Protein Total Protein Albumin Triglycerides Arterial Blood Glucose Arterial Blood Ionized Calcium Urine WBC (Auto) Coronavirus (PCR) SARS-CoV-2 IgG Ab Crossmatch 06/08/20 06/08/20 06/09/20 18:18 23:35 05:42 WBC RBC Hgb Hct MCV MCH MCHC RDW Lymph % (Auto) Lymph # (Auto) Seg Neutrophils % Seg Neuts % (Manual) Lymphocytes % (Manual) Nucleated RBC % Seg Neutrophils # Seg Neutrophils # Man Lymphocytes # (Manual) Monocytes # (Manual) PT INR APTT D-Dimer ABG pH POC ABG pCO2 POC ABG pO2 ABG pO2 ABG HCO3 ABG O2 Saturation ABG Base Excess ABG Hemoglobin ABG Oxyhemoglobin ABG Sodium ABG Potassium ABG Chloride ABG Glucose Oxyhemoglobin Sodium Potassium Chloride Carbon Dioxide BUN Creatinine Glucose POC Glucose 172 H 177 H 137 H Lactic Acid Calcium Magnesium Ferritin Total Bilirubin Direct Bilirubin AST ALT Alkaline Phosphatase Lactate Dehydrogenase C-Reactive Protein Total Protein Albumin Triglycerides Arterial Blood Glucose Arterial Blood Ionized Calcium Urine WBC (Auto) Coronavirus (PCR) SARS-CoV-2 IgG Ab Crossmatch 06/09/20 06/09/20 06/09/20 06:20 07:55 07:55 WBC 12.4 H RBC 3.26 L Hgb 11.1 L Hct 33.4 L D MCV 102 H MCH 34 H MCHC RDW Lymph % (Auto) Lymph # (Auto) Seg Neutrophils % Seg Neuts % (Manual) Lymphocytes % (Manual) Nucleated RBC % Seg Neutrophils # Seg Neutrophils # Man Lymphocytes # (Manual) Monocytes # (Manual) PT INR APTT D-Dimer ABG pH 7.466 H POC ABG pCO2 50.7 H POC ABG pO2 53.0 L ABG pO2 ABG HCO3 ABG O2 Saturation ABG Base Excess ABG Hemoglobin ABG Oxyhemoglobin ABG Sodium ABG Potassium 2.9 L ABG Chloride 93.0 L ABG Glucose 138 H Oxyhemoglobin Sodium Potassium 3.0 L Chloride 92.3 L Carbon Dioxide 37 H BUN 21 H Creatinine 0.6 L Glucose 120 H POC Glucose Lactic Acid Calcium Magnesium Ferritin Total Bilirubin Direct Bilirubin AST ALT Alkaline Phosphatase Lactate Dehydrogenase C-Reactive Protein Total Protein Albumin Triglycerides Arterial Blood Glucose 138 H Arterial Blood Ionized Calcium 4.5 L Urine WBC (Auto) Coronavirus (PCR) SARS-CoV-2 IgG Ab Crossmatch 06/09/20 06/09/20 06/10/20 11:22 18:32 04:46 WBC RBC Hgb Hct MCV MCH MCHC RDW Lymph % (Auto) Lymph # (Auto) Seg Neutrophils % Seg Neuts % (Manual) Lymphocytes % (Manual) Nucleated RBC % Seg Neutrophils # Seg Neutrophils # Man Lymphocytes # (Manual) Monocytes # (Manual) PT INR APTT D-Dimer ABG pH 7.501 H POC ABG pCO2 POC ABG pO2 126.5 H ABG pO2 ABG HCO3 ABG O2 Saturation ABG Base Excess ABG Hemoglobin 10.3 L ABG Oxyhemoglobin ABG Sodium ABG Potassium ABG Chloride ABG Glucose 220 H Oxyhemoglobin Sodium Potassium Chloride Carbon Dioxide BUN Creatinine Glucose POC Glucose 117 H 121 H Lactic Acid Calcium Magnesium Ferritin Total Bilirubin Direct Bilirubin AST ALT Alkaline Phosphatase Lactate Dehydrogenase C-Reactive Protein Total Protein Albumin Triglycerides Arterial Blood Glucose 220 H Arterial Blood Ionized Calcium Urine WBC (Auto) Coronavirus (PCR) SARS-CoV-2 IgG Ab Crossmatch 06/10/20 06/10/20 06/10/20 05:30 09:38 12:03 WBC RBC Hgb Hct MCV MCH MCHC RDW Lymph % (Auto) Lymph # (Auto) Seg Neutrophils % Seg Neuts % (Manual) Lymphocytes % (Manual) Nucleated RBC % Seg Neutrophils # Seg Neutrophils # Man Lymphocytes # (Manual) Monocytes # (Manual) PT INR APTT D-Dimer ABG pH POC ABG pCO2 POC ABG pO2 ABG pO2 ABG HCO3 ABG O2 Saturation ABG Base Excess ABG Hemoglobin ABG Oxyhemoglobin ABG Sodium ABG Potassium ABG Chloride ABG Glucose Oxyhemoglobin Sodium Potassium Chloride Carbon Dioxide BUN Creatinine Glucose POC Glucose 181 H 204 H Lactic Acid Calcium Magnesium Ferritin Total Bilirubin Direct Bilirubin AST ALT Alkaline Phosphatase Lactate Dehydrogenase C-Reactive Protein Total Protein Albumin Triglycerides 738 H Arterial Blood Glucose Arterial Blood Ionized Calcium Urine WBC (Auto) Coronavirus (PCR) SARS-CoV-2 IgG Ab Crossmatch 06/10/20 06/11/20 06/11/20 17:17 00:04 04:38 WBC RBC Hgb Hct MCV MCH MCHC RDW Lymph % (Auto) Lymph # (Auto) Seg Neutrophils % Seg Neuts % (Manual) Lymphocytes % (Manual) Nucleated RBC % Seg Neutrophils # Seg Neutrophils # Man Lymphocytes # (Manual) Monocytes # (Manual) PT INR APTT D-Dimer ABG pH 7.479 H POC ABG pCO2 POC ABG pO2 76.7 L ABG pO2 ABG HCO3 ABG O2 Saturation ABG Base Excess ABG Hemoglobin 9.8 L ABG Oxyhemoglobin ABG Sodium 135.8 L ABG Potassium ABG Chloride ABG Glucose 238 H Oxyhemoglobin Sodium Potassium Chloride Carbon Dioxide BUN Creatinine Glucose POC Glucose 156 H 178 H Lactic Acid Calcium Magnesium Ferritin Total Bilirubin Direct Bilirubin AST ALT Alkaline Phosphatase Lactate Dehydrogenase C-Reactive Protein Total Protein Albumin Triglycerides Arterial Blood Glucose 238 H Arterial Blood Ionized Calcium Urine WBC (Auto) Coronavirus (PCR) SARS-CoV-2 IgG Ab Crossmatch 06/11/20 06/11/20 06/11/20 05:21 06:52 11:50 WBC RBC Hgb Hct MCV MCH MCHC RDW Lymph % (Auto) Lymph # (Auto) Seg Neutrophils % Seg Neuts % (Manual) Lymphocytes % (Manual) Nucleated RBC % Seg Neutrophils # Seg Neutrophils # Man Lymphocytes # (Manual) Monocytes # (Manual) PT INR APTT D-Dimer ABG pH POC ABG pCO2 POC ABG pO2 ABG pO2 ABG HCO3 ABG O2 Saturation ABG Base Excess ABG Hemoglobin ABG Oxyhemoglobin ABG Sodium ABG Potassium ABG Chloride ABG Glucose Oxyhemoglobin Sodium Potassium Chloride Carbon Dioxide BUN Creatinine Glucose POC Glucose 215 H 187 H Lactic Acid Calcium Magnesium Ferritin Total Bilirubin Direct Bilirubin AST ALT Alkaline Phosphatase Lactate Dehydrogenase C-Reactive Protein Total Protein Albumin Triglycerides 331 H Arterial Blood Glucose Arterial Blood Ionized Calcium Urine WBC (Auto) Coronavirus (PCR) SARS-CoV-2 IgG Ab Crossmatch 06/11/20 06/11/20 06/12/20 17:49 23:35 04:52 WBC RBC Hgb Hct MCV MCH MCHC RDW Lymph % (Auto) Lymph # (Auto) Seg Neutrophils % Seg Neuts % (Manual) Lymphocytes % (Manual) Nucleated RBC % Seg Neutrophils # Seg Neutrophils # Man Lymphocytes # (Manual) Monocytes # (Manual) PT INR APTT D-Dimer ABG pH 7.486 H POC ABG pCO2 POC ABG pO2 ABG pO2 ABG HCO3 ABG O2 Saturation ABG Base Excess ABG Hemoglobin 9.4 L ABG Oxyhemoglobin ABG Sodium ABG Potassium 3.2 L ABG Chloride ABG Glucose 209 H Oxyhemoglobin Sodium Potassium Chloride Carbon Dioxide BUN Creatinine Glucose POC Glucose 211 H 200 H Lactic Acid Calcium Magnesium Ferritin Total Bilirubin Direct Bilirubin AST ALT Alkaline Phosphatase Lactate Dehydrogenase C-Reactive Protein Total Protein Albumin Triglycerides Arterial Blood Glucose 209 H Arterial Blood Ionized Calcium Urine WBC (Auto) Coronavirus (PCR) SARS-CoV-2 IgG Ab Crossmatch 06/12/20 06/12/20 06/12/20 05:13 11:47 18:33 WBC RBC Hgb Hct MCV MCH MCHC RDW Lymph % (Auto) Lymph # (Auto) Seg Neutrophils % Seg Neuts % (Manual) Lymphocytes % (Manual) Nucleated RBC % Seg Neutrophils # Seg Neutrophils # Man Lymphocytes # (Manual) Monocytes # (Manual) PT INR APTT D-Dimer ABG pH POC ABG pCO2 POC ABG pO2 ABG pO2 ABG HCO3 ABG O2 Saturation ABG Base Excess ABG Hemoglobin ABG Oxyhemoglobin ABG Sodium ABG Potassium ABG Chloride ABG Glucose Oxyhemoglobin Sodium Potassium Chloride Carbon Dioxide BUN Creatinine Glucose POC Glucose 174 H 214 H 194 H Lactic Acid Calcium Magnesium Ferritin Total Bilirubin Direct Bilirubin AST ALT Alkaline Phosphatase Lactate Dehydrogenase C-Reactive Protein Total Protein Albumin Triglycerides Arterial Blood Glucose Arterial Blood Ionized Calcium Urine WBC (Auto) Coronavirus (PCR) SARS-CoV-2 IgG Ab Crossmatch 06/12/20 06/13/20 06/13/20 23:49 05:41 12:30 WBC RBC Hgb Hct MCV MCH MCHC RDW Lymph % (Auto) Lymph # (Auto) Seg Neutrophils % Seg Neuts % (Manual) Lymphocytes % (Manual) Nucleated RBC % Seg Neutrophils # Seg Neutrophils # Man Lymphocytes # (Manual) Monocytes # (Manual) PT INR APTT D-Dimer ABG pH POC ABG pCO2 POC ABG pO2 ABG pO2 ABG HCO3 ABG O2 Saturation ABG Base Excess ABG Hemoglobin ABG Oxyhemoglobin ABG Sodium ABG Potassium ABG Chloride ABG Glucose Oxyhemoglobin Sodium Potassium Chloride Carbon Dioxide BUN Creatinine Glucose POC Glucose 160 H 150 H 181 H Lactic Acid Calcium Magnesium Ferritin Total Bilirubin Direct Bilirubin AST ALT Alkaline Phosphatase Lactate Dehydrogenase C-Reactive Protein Total Protein Albumin Triglycerides Arterial Blood Glucose Arterial Blood Ionized Calcium Urine WBC (Auto) Coronavirus (PCR) SARS-CoV-2 IgG Ab Crossmatch 06/13/20 06/13/20 06/13/20 14:14 17:48 23:27 WBC 12.8 H RBC 2.33 L Hgb 8.0 L Hct 23.3 L MCV 100 H MCH 34 H MCHC RDW 15.7 H Lymph % (Auto) Lymph # (Auto) Seg Neutrophils % Seg Neuts % (Manual) 85.0 H Lymphocytes % (Manual) 10.0 L Nucleated RBC % Seg Neutrophils # Seg Neutrophils # Man 10.9 H Lymphocytes # (Manual) Monocytes # (Manual) PT INR APTT D-Dimer ABG pH POC ABG pCO2 POC ABG pO2 ABG pO2 ABG HCO3 ABG O2 Saturation ABG Base Excess ABG Hemoglobin ABG Oxyhemoglobin ABG Sodium ABG Potassium ABG Chloride ABG Glucose Oxyhemoglobin Sodium Potassium Chloride Carbon Dioxide BUN Creatinine Glucose POC Glucose 173 H 154 H Lactic Acid Calcium Magnesium Ferritin Total Bilirubin Direct Bilirubin AST ALT Alkaline Phosphatase Lactate Dehydrogenase C-Reactive Protein Total Protein Albumin Triglycerides Arterial Blood Glucose Arterial Blood Ionized Calcium Urine WBC (Auto) Coronavirus (PCR) SARS-CoV-2 IgG Ab Crossmatch 06/14/20 06/14/20 06/14/20 03:58 05:21 07:15 WBC 26.2 H RBC 2.97 L Hgb 9.7 L Hct 29.9 L D MCV 101 H MCH 33 H MCHC RDW 15.3 H Lymph % (Auto) Lymph # (Auto) Seg Neutrophils % Seg Neuts % (Manual) 79.0 H Lymphocytes % (Manual) 5.0 L Nucleated RBC % 3.0 H Seg Neutrophils # Seg Neutrophils # Man 20.7 H Lymphocytes # (Manual) Monocytes # (Manual) 1.3 H PT INR APTT D-Dimer ABG pH POC ABG pCO2 51.5 H POC ABG pO2 70.0 L ABG pO2 ABG HCO3 ABG O2 Saturation ABG Base Excess ABG Hemoglobin 10.1 L ABG Oxyhemoglobin ABG Sodium 131.5 L ABG Potassium 3.1 L ABG Chloride 93.0 L ABG Glucose 188 H Oxyhemoglobin Sodium Potassium Chloride Carbon Dioxide BUN Creatinine Glucose POC Glucose 147 H Lactic Acid Calcium Magnesium Ferritin Total Bilirubin Direct Bilirubin AST ALT Alkaline Phosphatase Lactate Dehydrogenase C-Reactive Protein Total Protein Albumin Triglycerides Arterial Blood Glucose 188 H Arterial Blood Ionized Calcium Urine WBC (Auto) Coronavirus (PCR) SARS-CoV-2 IgG Ab Crossmatch 06/14/20 06/14/20 06/14/20 07:15 11:30 11:50 WBC RBC Hgb Hct MCV MCH MCHC RDW Lymph % (Auto) Lymph # (Auto) Seg Neutrophils % Seg Neuts % (Manual) Lymphocytes % (Manual) Nucleated RBC % Seg Neutrophils # Seg Neutrophils # Man Lymphocytes # (Manual) Monocytes # (Manual) PT INR APTT D-Dimer ABG pH POC ABG pCO2 POC ABG pO2 ABG pO2 ABG HCO3 ABG O2 Saturation ABG Base Excess ABG Hemoglobin ABG Oxyhemoglobin ABG Sodium ABG Potassium ABG Chloride ABG Glucose Oxyhemoglobin Sodium 135 L Potassium 3.5 L Chloride 90.4 L Carbon Dioxide 38 H BUN Creatinine 0.5 L Glucose 190 H POC Glucose 176 H Lactic Acid Calcium Magnesium Ferritin 1496.0 H Total Bilirubin Direct Bilirubin AST ALT 81 H Alkaline Phosphatase Lactate Dehydrogenase C-Reactive Protein Total Protein Albumin 2.9 L Triglycerides Arterial Blood Glucose Arterial Blood Ionized Calcium Urine WBC (Auto) Coronavirus (PCR) SARS-CoV-2 IgG Ab Crossmatch 06/14/20 06/15/20 06/15/20 23:31 04:00 05:00 WBC RBC Hgb Hct MCV MCH MCHC RDW Lymph % (Auto) Lymph # (Auto) Seg Neutrophils % Seg Neuts % (Manual) Lymphocytes % (Manual) Nucleated RBC % Seg Neutrophils # Seg Neutrophils # Man Lymphocytes # (Manual) Monocytes # (Manual) PT INR APTT D-Dimer ABG pH POC ABG pCO2 POC ABG pO2 ABG pO2 ABG HCO3 ABG O2 Saturation ABG Base Excess ABG Hemoglobin ABG Oxyhemoglobin ABG Sodium ABG Potassium ABG Chloride ABG Glucose Oxyhemoglobin Sodium 133 L Potassium Chloride 91.1 L Carbon Dioxide 34 H BUN Creatinine 0.4 L Glucose 159 H POC Glucose 200 H Lactic Acid Calcium Magnesium Ferritin Total Bilirubin 2.00 H Direct Bilirubin AST 47 H ALT 77 H Alkaline Phosphatase Lactate Dehydrogenase C-Reactive Protein Total Protein Albumin 2.6 L Triglycerides 152 H Arterial Blood Glucose Arterial Blood Ionized Calcium Urine WBC (Auto) Coronavirus (PCR) SARS-CoV-2 IgG Ab Crossmatch 06/15/20 06/15/20 06/15/20 05:35 06:27 11:38 WBC RBC Hgb Hct MCV MCH MCHC RDW Lymph % (Auto) Lymph # (Auto) Seg Neutrophils % Seg Neuts % (Manual) Lymphocytes % (Manual) Nucleated RBC % Seg Neutrophils # Seg Neutrophils # Man Lymphocytes # (Manual) Monocytes # (Manual) PT INR APTT D-Dimer ABG pH POC ABG pCO2 61.0 H POC ABG pO2 67.9 L ABG pO2 ABG HCO3 ABG O2 Saturation ABG Base Excess ABG Hemoglobin 10.4 L ABG Oxyhemoglobin ABG Sodium 132.7 L ABG Potassium 3.3 L ABG Chloride 92.0 L ABG Glucose 158 H Oxyhemoglobin Sodium Potassium Chloride Carbon Dioxide BUN Creatinine Glucose POC Glucose 148 H 197 H Lactic Acid Calcium Magnesium Ferritin Total Bilirubin Direct Bilirubin AST ALT Alkaline Phosphatase Lactate Dehydrogenase C-Reactive Protein Total Protein Albumin Triglycerides Arterial Blood Glucose 158 H Arterial Blood Ionized Calcium Urine WBC (Auto) Coronavirus (PCR) SARS-CoV-2 IgG Ab Crossmatch 06/15/20 06/15/20 06/16/20 17:29 Unknown 00:01 WBC 20.7 H RBC 2.57 L Hgb 8.9 L Hct 25.8 L MCV 101 H MCH 35 H MCHC 35 H RDW 16.0 H Lymph % (Auto) Lymph # (Auto) Seg Neutrophils % Seg Neuts % (Manual) 83.0 H Lymphocytes % (Manual) 8.0 L Nucleated RBC % Seg Neutrophils # Seg Neutrophils # Man 17.2 H Lymphocytes # (Manual) Monocytes # (Manual) 1.2 H PT INR APTT D-Dimer ABG pH POC ABG pCO2 POC ABG pO2 ABG pO2 ABG HCO3 ABG O2 Saturation ABG Base Excess ABG Hemoglobin ABG Oxyhemoglobin ABG Sodium ABG Potassium ABG Chloride ABG Glucose Oxyhemoglobin Sodium Potassium Chloride Carbon Dioxide BUN Creatinine Glucose POC Glucose 231 H 257 H Lactic Acid Calcium Magnesium Ferritin Total Bilirubin Direct Bilirubin AST ALT Alkaline Phosphatase Lactate Dehydrogenase C-Reactive Protein Total Protein Albumin Triglycerides Arterial Blood Glucose Arterial Blood Ionized Calcium Urine WBC (Auto) Coronavirus (PCR) SARS-CoV-2 IgG Ab Crossmatch 06/16/20 06/16/20 06/16/20 04:00 04:00 05:22 WBC 13.8 H RBC 2.03 L Hgb 7.6 L Hct 20.7 L MCV 102 H MCH 37 H MCHC 37 H RDW 16.2 H Lymph % (Auto) 4.4 L Lymph # (Auto) 0.6 L Seg Neutrophils % Seg Neuts % (Manual) Lymphocytes % (Manual) Nucleated RBC % Seg Neutrophils # 12.7 H Seg Neutrophils # Man Lymphocytes # (Manual) Monocytes # (Manual) PT INR APTT D-Dimer ABG pH POC ABG pCO2 POC ABG pO2 ABG pO2 ABG HCO3 ABG O2 Saturation ABG Base Excess ABG Hemoglobin ABG Oxyhemoglobin ABG Sodium ABG Potassium ABG Chloride ABG Glucose Oxyhemoglobin Sodium 130 L Potassium Chloride 88.9 L Carbon Dioxide 36 H BUN Creatinine 0.3 L Glucose 276 H POC Glucose 250 H Lactic Acid Calcium Magnesium Ferritin Total Bilirubin Direct Bilirubin AST ALT Alkaline Phosphatase Lactate Dehydrogenase C-Reactive Protein Total Protein Albumin Triglycerides Arterial Blood Glucose Arterial Blood Ionized Calcium Urine WBC (Auto) Coronavirus (PCR) SARS-CoV-2 IgG Ab Crossmatch 06/16/20 06/16/20 06/17/20 12:44 18:18 00:39 WBC RBC Hgb Hct MCV MCH MCHC RDW Lymph % (Auto) Lymph # (Auto) Seg Neutrophils % Seg Neuts % (Manual) Lymphocytes % (Manual) Nucleated RBC % Seg Neutrophils # Seg Neutrophils # Man Lymphocytes # (Manual) Monocytes # (Manual) PT INR APTT D-Dimer ABG pH POC ABG pCO2 POC ABG pO2 ABG pO2 ABG HCO3 ABG O2 Saturation ABG Base Excess ABG Hemoglobin ABG Oxyhemoglobin ABG Sodium ABG Potassium ABG Chloride ABG Glucose Oxyhemoglobin Sodium Potassium Chloride Carbon Dioxide BUN Creatinine Glucose POC Glucose 279 H 239 H 247 H Lactic Acid Calcium Magnesium Ferritin Total Bilirubin Direct Bilirubin AST ALT Alkaline Phosphatase Lactate Dehydrogenase C-Reactive Protein Total Protein Albumin Triglycerides Arterial Blood Glucose Arterial Blood Ionized Calcium Urine WBC (Auto) Coronavirus (PCR) SARS-CoV-2 IgG Ab Crossmatch 06/17/20 06/17/20 06/17/20 03:40 04:08 10:54 WBC RBC Hgb Hct MCV MCH MCHC RDW Lymph % (Auto) Lymph # (Auto) Seg Neutrophils % Seg Neuts % (Manual) Lymphocytes % (Manual) Nucleated RBC % Seg Neutrophils # Seg Neutrophils # Man Lymphocytes # (Manual) Monocytes # (Manual) PT INR APTT D-Dimer ABG pH POC ABG pCO2 65.7 H POC ABG pO2 ABG pO2 ABG HCO3 ABG O2 Saturation ABG Base Excess ABG Hemoglobin 11.9 L ABG Oxyhemoglobin ABG Sodium ABG Potassium ABG Chloride 93.0 L ABG Glucose 244 H Oxyhemoglobin Sodium Potassium Chloride Carbon Dioxide BUN Creatinine Glucose POC Glucose 221 H 248 H Lactic Acid Calcium Magnesium Ferritin Total Bilirubin Direct Bilirubin AST ALT Alkaline Phosphatase Lactate Dehydrogenase C-Reactive Protein Total Protein Albumin Triglycerides Arterial Blood Glucose 244 H Arterial Blood Ionized Calcium Urine WBC (Auto) Coronavirus (PCR) SARS-CoV-2 IgG Ab Crossmatch 06/17/20 06/17/20 06/17/20 17:47 23:11 23:29 WBC RBC Hgb Hct MCV MCH MCHC RDW Lymph % (Auto) Lymph # (Auto) Seg Neutrophils % Seg Neuts % (Manual) Lymphocytes % (Manual) Nucleated RBC % Seg Neutrophils # Seg Neutrophils # Man Lymphocytes # (Manual) Monocytes # (Manual) PT INR APTT D-Dimer ABG pH POC ABG pCO2 85.2 H POC ABG pO2 48.4 L ABG pO2 ABG HCO3 ABG O2 Saturation ABG Base Excess ABG Hemoglobin 8.0 L ABG Oxyhemoglobin ABG Sodium ABG Potassium ABG Chloride 95.0 L ABG Glucose 292 H Oxyhemoglobin Sodium Potassium Chloride Carbon Dioxide BUN Creatinine Glucose POC Glucose 245 H 252 H Lactic Acid Calcium Magnesium Ferritin Total Bilirubin Direct Bilirubin AST ALT Alkaline Phosphatase Lactate Dehydrogenase C-Reactive Protein Total Protein Albumin Triglycerides Arterial Blood Glucose 292 H Arterial Blood Ionized Calcium Urine WBC (Auto) Coronavirus (PCR) SARS-CoV-2 IgG Ab Crossmatch 06/18/20 06/18/20 06/18/20 03:14 05:34 11:47 WBC RBC Hgb Hct MCV MCH MCHC RDW Lymph % (Auto) Lymph # (Auto) Seg Neutrophils % Seg Neuts % (Manual) Lymphocytes % (Manual) Nucleated RBC % Seg Neutrophils # Seg Neutrophils # Man Lymphocytes # (Manual) Monocytes # (Manual) PT INR APTT D-Dimer ABG pH POC ABG pCO2 65.4 H POC ABG pO2 160.7 H ABG pO2 ABG HCO3 ABG O2 Saturation ABG Base Excess ABG Hemoglobin 7.8 L ABG Oxyhemoglobin ABG Sodium ABG Potassium ABG Chloride 95.0 L ABG Glucose 251 H Oxyhemoglobin Sodium Potassium Chloride Carbon Dioxide BUN Creatinine Glucose POC Glucose 243 H 263 H Lactic Acid Calcium Magnesium Ferritin Total Bilirubin Direct Bilirubin AST ALT Alkaline Phosphatase Lactate Dehydrogenase C-Reactive Protein Total Protein Albumin Triglycerides Arterial Blood Glucose 251 H Arterial Blood Ionized Calcium Urine WBC (Auto) Coronavirus (PCR) SARS-CoV-2 IgG Ab Crossmatch 06/18/20 06/18/20 06/19/20 17:31 23:33 04:32 WBC RBC Hgb Hct MCV MCH MCHC RDW Lymph % (Auto) Lymph # (Auto) Seg Neutrophils % Seg Neuts % (Manual) Lymphocytes % (Manual) Nucleated RBC % Seg Neutrophils # Seg Neutrophils # Man Lymphocytes # (Manual) Monocytes # (Manual) PT INR APTT D-Dimer ABG pH POC ABG pCO2 83.1 H POC ABG pO2 65.8 L ABG pO2 ABG HCO3 ABG O2 Saturation ABG Base Excess ABG Hemoglobin 8.9 L ABG Oxyhemoglobin ABG Sodium ABG Potassium ABG Chloride 96.0 L ABG Glucose 297 H Oxyhemoglobin Sodium Potassium Chloride Carbon Dioxide BUN Creatinine Glucose POC Glucose 286 H 238 H Lactic Acid Calcium Magnesium Ferritin Total Bilirubin Direct Bilirubin AST ALT Alkaline Phosphatase Lactate Dehydrogenase C-Reactive Protein Total Protein Albumin Triglycerides Arterial Blood Glucose 297 H Arterial Blood Ionized Calcium Urine WBC (Auto) Coronavirus (PCR) SARS-CoV-2 IgG Ab Crossmatch 06/19/20 06/19/20 06/19/20 05:55 11:20 17:12 WBC RBC Hgb Hct MCV MCH MCHC RDW Lymph % (Auto) Lymph # (Auto) Seg Neutrophils % Seg Neuts % (Manual) Lymphocytes % (Manual) Nucleated RBC % Seg Neutrophils # Seg Neutrophils # Man Lymphocytes # (Manual) Monocytes # (Manual) PT INR APTT D-Dimer ABG pH POC ABG pCO2 POC ABG pO2 ABG pO2 ABG HCO3 ABG O2 Saturation ABG Base Excess ABG Hemoglobin ABG Oxyhemoglobin ABG Sodium ABG Potassium ABG Chloride ABG Glucose Oxyhemoglobin Sodium Potassium Chloride Carbon Dioxide BUN Creatinine Glucose POC Glucose 274 H 282 H 298 H Lactic Acid Calcium Magnesium Ferritin Total Bilirubin Direct Bilirubin AST ALT Alkaline Phosphatase Lactate Dehydrogenase C-Reactive Protein Total Protein Albumin Triglycerides Arterial Blood Glucose Arterial Blood Ionized Calcium Urine WBC (Auto) Coronavirus (PCR) SARS-CoV-2 IgG Ab Crossmatch 06/19/20 06/20/20 06/20/20 23:08 03:33 06:01 WBC RBC Hgb Hct MCV MCH MCHC RDW Lymph % (Auto) Lymph # (Auto) Seg Neutrophils % Seg Neuts % (Manual) Lymphocytes % (Manual) Nucleated RBC % Seg Neutrophils # Seg Neutrophils # Man Lymphocytes # (Manual) Monocytes # (Manual) PT INR APTT D-Dimer ABG pH POC ABG pCO2 POC ABG pO2 ABG pO2 69.9 L ABG HCO3 50.8 H ABG O2 Saturation ABG Base Excess 24.2 H ABG Hemoglobin 5.8 L ABG Oxyhemoglobin ABG Sodium ABG Potassium ABG Chloride ABG Glucose Oxyhemoglobin Sodium Potassium Chloride Carbon Dioxide BUN Creatinine Glucose POC Glucose 293 H 182 H Lactic Acid Calcium Magnesium Ferritin Total Bilirubin Direct Bilirubin AST ALT Alkaline Phosphatase Lactate Dehydrogenase C-Reactive Protein Total Protein Albumin Triglycerides Arterial Blood Glucose Arterial Blood Ionized Calcium Urine WBC (Auto) Coronavirus (PCR) SARS-CoV-2 IgG Ab Crossmatch 06/20/20 06/20/20 06/20/20 11:47 17:46 23:37 WBC RBC Hgb Hct MCV MCH MCHC RDW Lymph % (Auto) Lymph # (Auto) Seg Neutrophils % Seg Neuts % (Manual) Lymphocytes % (Manual) Nucleated RBC % Seg Neutrophils # Seg Neutrophils # Man Lymphocytes # (Manual) Monocytes # (Manual) PT INR APTT D-Dimer ABG pH POC ABG pCO2 POC ABG pO2 ABG pO2 ABG HCO3 ABG O2 Saturation ABG Base Excess ABG Hemoglobin ABG Oxyhemoglobin ABG Sodium ABG Potassium ABG Chloride ABG Glucose Oxyhemoglobin Sodium Potassium Chloride Carbon Dioxide BUN Creatinine Glucose POC Glucose 170 H 215 H 256 H Lactic Acid Calcium Magnesium Ferritin Total Bilirubin Direct Bilirubin AST ALT Alkaline Phosphatase Lactate Dehydrogenase C-Reactive Protein Total Protein Albumin Triglycerides Arterial Blood Glucose Arterial Blood Ionized Calcium Urine WBC (Auto) Coronavirus (PCR) SARS-CoV-2 IgG Ab Crossmatch 06/21/20 06/21/20 06/21/20 04:00 05:14 05:51 WBC RBC Hgb Hct MCV MCH MCHC RDW Lymph % (Auto) Lymph # (Auto) Seg Neutrophils % Seg Neuts % (Manual) Lymphocytes % (Manual) Nucleated RBC % Seg Neutrophils # Seg Neutrophils # Man Lymphocytes # (Manual) Monocytes # (Manual) PT INR APTT D-Dimer ABG pH 7.474 H POC ABG pCO2 POC ABG pO2 ABG pO2 ABG HCO3 52.1 H ABG O2 Saturation ABG Base Excess 23.3 H ABG Hemoglobin 5.3 L ABG Oxyhemoglobin ABG Sodium ABG Potassium ABG Chloride ABG Glucose Oxyhemoglobin 93.8 L Sodium Potassium Chloride Carbon Dioxide BUN Creatinine Glucose POC Glucose 122 H 129 H Lactic Acid Calcium Magnesium Ferritin Total Bilirubin Direct Bilirubin AST ALT Alkaline Phosphatase Lactate Dehydrogenase C-Reactive Protein Total Protein Albumin Triglycerides Arterial Blood Glucose Arterial Blood Ionized Calcium Urine WBC (Auto) Coronavirus (PCR) SARS-CoV-2 IgG Ab Crossmatch 06/21/20 06/21/20 06/21/20 11:00 11:00 11:42 WBC 14.2 H RBC 1.85 L Hgb 6.2 L Hct 19.5 L* MCV 105 H MCH 34 H MCHC RDW 18.0 H Lymph % (Auto) Lymph # (Auto) Seg Neutrophils % Seg Neuts % (Manual) Lymphocytes % (Manual) Nucleated RBC % Seg Neutrophils # Seg Neutrophils # Man Lymphocytes # (Manual) Monocytes # (Manual) PT INR APTT D-Dimer ABG pH POC ABG pCO2 POC ABG pO2 ABG pO2 ABG HCO3 ABG O2 Saturation ABG Base Excess ABG Hemoglobin ABG Oxyhemoglobin ABG Sodium ABG Potassium ABG Chloride ABG Glucose Oxyhemoglobin Sodium 147 H Potassium Chloride Carbon Dioxide 51 H* BUN 31 H Creatinine 0.5 L Glucose 224 H POC Glucose 217 H Lactic Acid Calcium Magnesium Ferritin Total Bilirubin Direct Bilirubin AST ALT Alkaline Phosphatase Lactate Dehydrogenase C-Reactive Protein Total Protein Albumin Triglycerides Arterial Blood Glucose Arterial Blood Ionized Calcium Urine WBC (Auto) Coronavirus (PCR) SARS-CoV-2 IgG Ab Crossmatch 06/21/20 06/21/20 06/21/20 14:18 14:30 18:36 WBC RBC Hgb Hct MCV MCH MCHC RDW Lymph % (Auto) Lymph # (Auto) Seg Neutrophils % Seg Neuts % (Manual) Lymphocytes % (Manual) Nucleated RBC % Seg Neutrophils # Seg Neutrophils # Man Lymphocytes # (Manual) Monocytes # (Manual) PT 15.1 H INR 1.19 H APTT D-Dimer ABG pH POC ABG pCO2 POC ABG pO2 ABG pO2 ABG HCO3 ABG O2 Saturation ABG Base Excess ABG Hemoglobin ABG Oxyhemoglobin ABG Sodium ABG Potassium ABG Chloride ABG Glucose Oxyhemoglobin Sodium Potassium Chloride Carbon Dioxide BUN Creatinine Glucose POC Glucose 185 H Lactic Acid Calcium Magnesium Ferritin Total Bilirubin Direct Bilirubin AST ALT Alkaline Phosphatase Lactate Dehydrogenase C-Reactive Protein Total Protein Albumin Triglycerides Arterial Blood Glucose Arterial Blood Ionized Calcium Urine WBC (Auto) Coronavirus (PCR) SARS-CoV-2 IgG Ab Crossmatch See Detail 06/21/20 06/22/20 06/22/20 21:14 03:50 04:00 WBC RBC Hgb Hct MCV MCH MCHC RDW Lymph % (Auto) Lymph # (Auto) Seg Neutrophils % Seg Neuts % (Manual) Lymphocytes % (Manual) Nucleated RBC % Seg Neutrophils # Seg Neutrophils # Man Lymphocytes # (Manual) Monocytes # (Manual) PT INR APTT D-Dimer ABG pH 7.451 H POC ABG pCO2 POC ABG pO2 ABG pO2 ABG HCO3 47.5 H ABG O2 Saturation ABG Base Excess 22.0 H ABG Hemoglobin < 5.1 L ABG Oxyhemoglobin ABG Sodium ABG Potassium ABG Chloride ABG Glucose Oxyhemoglobin 94.1 L Sodium 149 H Potassium 3.5 L Chloride Carbon Dioxide 42 H* D BUN 34 H Creatinine 0.4 L Glucose 219 H POC Glucose 250 H Lactic Acid Calcium Magnesium Ferritin Total Bilirubin Direct Bilirubin AST ALT Alkaline Phosphatase Lactate Dehydrogenase C-Reactive Protein Total Protein Albumin Triglycerides Arterial Blood Glucose Arterial Blood Ionized Calcium Urine WBC (Auto) Coronavirus (PCR) SARS-CoV-2 IgG Ab Crossmatch 06/22/20 06/22/20 06/22/20 12:16 14:29 17:56 WBC RBC Hgb Hct MCV MCH MCHC RDW Lymph % (Auto) Lymph # (Auto) Seg Neutrophils % Seg Neuts % (Manual) Lymphocytes % (Manual) Nucleated RBC % Seg Neutrophils # Seg Neutrophils # Man Lymphocytes # (Manual) Monocytes # (Manual) PT 11.8 L INR APTT 23.5 L D-Dimer ABG pH POC ABG pCO2 POC ABG pO2 ABG pO2 ABG HCO3 ABG O2 Saturation ABG Base Excess ABG Hemoglobin ABG Oxyhemoglobin ABG Sodium ABG Potassium ABG Chloride ABG Glucose Oxyhemoglobin Sodium Potassium Chloride Carbon Dioxide BUN Creatinine Glucose POC Glucose 215 H 215 H Lactic Acid Calcium Magnesium Ferritin Total Bilirubin Direct Bilirubin AST ALT Alkaline Phosphatase Lactate Dehydrogenase C-Reactive Protein Total Protein Albumin Triglycerides Arterial Blood Glucose Arterial Blood Ionized Calcium Urine WBC (Auto) Coronavirus (PCR) SARS-CoV-2 IgG Ab Crossmatch 06/22/20 06/22/20 06/22/20 23:36 23:45 Unknown WBC 14.1 H RBC 2.70 L Hgb 8.9 L 8.9 L Hct 26.9 L 27.2 L D MCV 101 H MCH 33 H MCHC RDW 17.7 H Lymph % (Auto) Lymph # (Auto) Seg Neutrophils % Seg Neuts % (Manual) 92.0 H Lymphocytes % (Manual) 5.0 L Nucleated RBC % Seg Neutrophils # Seg Neutrophils # Man 13.0 H Lymphocytes # (Manual) 0.7 L Monocytes # (Manual) PT INR APTT D-Dimer ABG pH POC ABG pCO2 POC ABG pO2 ABG pO2 ABG HCO3 ABG O2 Saturation ABG Base Excess ABG Hemoglobin ABG Oxyhemoglobin ABG Sodium ABG Potassium ABG Chloride ABG Glucose Oxyhemoglobin Sodium Potassium Chloride Carbon Dioxide BUN Creatinine Glucose POC Glucose 208 H Lactic Acid Calcium Magnesium Ferritin Total Bilirubin Direct Bilirubin AST ALT Alkaline Phosphatase Lactate Dehydrogenase C-Reactive Protein Total Protein Albumin Triglycerides Arterial Blood Glucose Arterial Blood Ionized Calcium Urine WBC (Auto) Coronavirus (PCR) SARS-CoV-2 IgG Ab Crossmatch 06/23/20 06/23/20 06/23/20 05:17 05:19 06:50 WBC RBC Hgb Hct MCV MCH MCHC RDW Lymph % (Auto) Lymph # (Auto) Seg Neutrophils % Seg Neuts % (Manual) Lymphocytes % (Manual) Nucleated RBC % Seg Neutrophils # Seg Neutrophils # Man Lymphocytes # (Manual) Monocytes # (Manual) PT INR APTT D-Dimer ABG pH POC ABG pCO2 69.7 H POC ABG pO2 63.3 L ABG pO2 ABG HCO3 ABG O2 Saturation ABG Base Excess ABG Hemoglobin 10.1 L ABG Oxyhemoglobin ABG Sodium ABG Potassium 3.3 L ABG Chloride ABG Glucose 226 H Oxyhemoglobin Sodium Potassium 3.0 L Chloride Carbon Dioxide 41 H* BUN 26 H Creatinine 0.4 L Glucose 209 H POC Glucose 200 H Lactic Acid Calcium Magnesium Ferritin Total Bilirubin Direct Bilirubin AST ALT Alkaline Phosphatase Lactate Dehydrogenase C-Reactive Protein Total Protein Albumin 2.9 L Triglycerides Arterial Blood Glucose 226 H Arterial Blood Ionized Calcium Urine WBC (Auto) Coronavirus (PCR) SARS-CoV-2 IgG Ab Crossmatch 06/23/20 06/23/20 06/23/20 09:41 12:04 18:16 WBC RBC Hgb 9.1 L Hct 28.0 L MCV MCH MCHC RDW Lymph % (Auto) Lymph # (Auto) Seg Neutrophils % Seg Neuts % (Manual) Lymphocytes % (Manual) Nucleated RBC % Seg Neutrophils # Seg Neutrophils # Man Lymphocytes # (Manual) Monocytes # (Manual) PT INR APTT D-Dimer ABG pH POC ABG pCO2 POC ABG pO2 ABG pO2 ABG HCO3 ABG O2 Saturation ABG Base Excess ABG Hemoglobin ABG Oxyhemoglobin ABG Sodium ABG Potassium ABG Chloride ABG Glucose Oxyhemoglobin Sodium Potassium Chloride Carbon Dioxide BUN Creatinine Glucose POC Glucose 146 H 162 H Lactic Acid Calcium Magnesium Ferritin Total Bilirubin Direct Bilirubin AST ALT Alkaline Phosphatase Lactate Dehydrogenase C-Reactive Protein Total Protein Albumin Triglycerides Arterial Blood Glucose Arterial Blood Ionized Calcium Urine WBC (Auto) Coronavirus (PCR) SARS-CoV-2 IgG Ab Crossmatch 06/23/20 06/23/20 06/24/20 23:24 23:41 02:39 WBC RBC Hgb 8.2 L 8.8 L Hct 24.9 L 26.8 L MCV MCH MCHC RDW Lymph % (Auto) Lymph # (Auto) Seg Neutrophils % Seg Neuts % (Manual) Lymphocytes % (Manual) Nucleated RBC % Seg Neutrophils # Seg Neutrophils # Man Lymphocytes # (Manual) Monocytes # (Manual) PT INR APTT D-Dimer ABG pH POC ABG pCO2 POC ABG pO2 ABG pO2 ABG HCO3 ABG O2 Saturation ABG Base Excess ABG Hemoglobin ABG Oxyhemoglobin ABG Sodium ABG Potassium ABG Chloride ABG Glucose Oxyhemoglobin Sodium Potassium Chloride Carbon Dioxide BUN Creatinine Glucose POC Glucose 248 H Lactic Acid Calcium Magnesium Ferritin Total Bilirubin Direct Bilirubin AST ALT Alkaline Phosphatase Lactate Dehydrogenase C-Reactive Protein Total Protein Albumin Triglycerides Arterial Blood Glucose Arterial Blood Ionized Calcium Urine WBC (Auto) Coronavirus (PCR) SARS-CoV-2 IgG Ab Crossmatch 06/24/20 06/24/20 06/24/20 02:39 02:45 05:31 WBC RBC Hgb Hct MCV MCH MCHC RDW Lymph % (Auto) Lymph # (Auto) Seg Neutrophils % Seg Neuts % (Manual) Lymphocytes % (Manual) Nucleated RBC % Seg Neutrophils # Seg Neutrophils # Man Lymphocytes # (Manual) Monocytes # (Manual) PT INR APTT D-Dimer ABG pH POC ABG pCO2 66.9 H POC ABG pO2 109.7 H ABG pO2 ABG HCO3 ABG O2 Saturation ABG Base Excess ABG Hemoglobin 9.7 L ABG Oxyhemoglobin ABG Sodium 135.0 L ABG Potassium ABG Chloride 97.0 L ABG Glucose 277 H Oxyhemoglobin Sodium 136 L Potassium Chloride 95.0 L Carbon Dioxide 34 H D BUN 24 H Creatinine 0.3 L Glucose 260 H POC Glucose 164 H Lactic Acid Calcium Magnesium Ferritin Total Bilirubin Direct Bilirubin AST ALT Alkaline Phosphatase Lactate Dehydrogenase C-Reactive Protein Total Protein 5.2 L Albumin 2.6 L Triglycerides Arterial Blood Glucose 277 H Arterial Blood Ionized Calcium Urine WBC (Auto) Coronavirus (PCR) SARS-CoV-2 IgG Ab Crossmatch 06/24/20 06/24/20 06/24/20 10:00 11:49 17:39 WBC RBC Hgb 8.9 L Hct 26.5 L MCV MCH MCHC RDW Lymph % (Auto) Lymph # (Auto) Seg Neutrophils % Seg Neuts % (Manual) Lymphocytes % (Manual) Nucleated RBC % Seg Neutrophils # Seg Neutrophils # Man Lymphocytes # (Manual) Monocytes # (Manual) PT INR APTT D-Dimer ABG pH POC ABG pCO2 POC ABG pO2 ABG pO2 ABG HCO3 ABG O2 Saturation ABG Base Excess ABG Hemoglobin ABG Oxyhemoglobin ABG Sodium ABG Potassium ABG Chloride ABG Glucose Oxyhemoglobin Sodium Potassium Chloride Carbon Dioxide BUN Creatinine Glucose POC Glucose 198 H 223 H Lactic Acid Calcium Magnesium Ferritin Total Bilirubin Direct Bilirubin AST ALT Alkaline Phosphatase Lactate Dehydrogenase C-Reactive Protein Total Protein Albumin Triglycerides Arterial Blood Glucose Arterial Blood Ionized Calcium Urine WBC (Auto) Coronavirus (PCR) SARS-CoV-2 IgG Ab Crossmatch 06/24/20 06/25/20 06/25/20 23:56 02:16 04:08 WBC RBC Hgb Hct MCV MCH MCHC RDW Lymph % (Auto) Lymph # (Auto) Seg Neutrophils % Seg Neuts % (Manual) Lymphocytes % (Manual) Nucleated RBC % Seg Neutrophils # Seg Neutrophils # Man Lymphocytes # (Manual) Monocytes # (Manual) PT INR APTT D-Dimer ABG pH 7.454 H POC ABG pCO2 56.9 H POC ABG pO2 61.0 L ABG pO2 ABG HCO3 ABG O2 Saturation ABG Base Excess ABG Hemoglobin ABG Oxyhemoglobin ABG Sodium 134.3 L ABG Potassium ABG Chloride 92.0 L ABG Glucose 246 H Oxyhemoglobin Sodium 134 L Potassium Chloride 89.7 L Carbon Dioxide 36 H BUN Creatinine 0.3 L Glucose 254 H POC Glucose 225 H Lactic Acid Calcium Magnesium Ferritin Total Bilirubin Direct Bilirubin AST ALT Alkaline Phosphatase Lactate Dehydrogenase C-Reactive Protein Total Protein Albumin 2.9 L Triglycerides Arterial Blood Glucose 246 H Arterial Blood Ionized Calcium Urine WBC (Auto) Coronavirus (PCR) SARS-CoV-2 IgG Ab Crossmatch 06/25/20 06/25/20 06/25/20 05:44 11:35 17:33 WBC RBC Hgb Hct MCV MCH MCHC RDW Lymph % (Auto) Lymph # (Auto) Seg Neutrophils % Seg Neuts % (Manual) Lymphocytes % (Manual) Nucleated RBC % Seg Neutrophils # Seg Neutrophils # Man Lymphocytes # (Manual) Monocytes # (Manual) PT INR APTT D-Dimer ABG pH POC ABG pCO2 POC ABG pO2 ABG pO2 ABG HCO3 ABG O2 Saturation ABG Base Excess ABG Hemoglobin ABG Oxyhemoglobin ABG Sodium ABG Potassium ABG Chloride ABG Glucose Oxyhemoglobin Sodium Potassium Chloride Carbon Dioxide BUN Creatinine Glucose POC Glucose 170 H 175 H 229 H Lactic Acid Calcium Magnesium Ferritin Total Bilirubin Direct Bilirubin AST ALT Alkaline Phosphatase Lactate Dehydrogenase C-Reactive Protein Total Protein Albumin Triglycerides Arterial Blood Glucose Arterial Blood Ionized Calcium Urine WBC (Auto) Coronavirus (PCR) SARS-CoV-2 IgG Ab Crossmatch 06/25/20 06/26/20 06/26/20 23:55 02:17 02:17 WBC RBC Hgb 10.0 L Hct 30.4 L MCV MCH MCHC RDW Lymph % (Auto) Lymph # (Auto) Seg Neutrophils % Seg Neuts % (Manual) Lymphocytes % (Manual) Nucleated RBC % Seg Neutrophils # Seg Neutrophils # Man Lymphocytes # (Manual) Monocytes # (Manual) PT INR APTT D-Dimer ABG pH POC ABG pCO2 POC ABG pO2 ABG pO2 ABG HCO3 ABG O2 Saturation ABG Base Excess ABG Hemoglobin ABG Oxyhemoglobin ABG Sodium ABG Potassium ABG Chloride ABG Glucose Oxyhemoglobin Sodium 136 L Potassium Chloride 90.1 L Carbon Dioxide 39 H BUN Creatinine 0.2 L Glucose 232 H POC Glucose 192 H Lactic Acid Calcium Magnesium Ferritin Total Bilirubin Direct Bilirubin AST ALT Alkaline Phosphatase Lactate Dehydrogenase C-Reactive Protein Total Protein 6.1 L Albumin 2.9 L Triglycerides Arterial Blood Glucose Arterial Blood Ionized Calcium Urine WBC (Auto) Coronavirus (PCR) SARS-CoV-2 IgG Ab Crossmatch 06/26/20 06/26/20 06/26/20 04:15 04:49 05:28 WBC RBC Hgb Hct MCV MCH MCHC RDW Lymph % (Auto) Lymph # (Auto) Seg Neutrophils % Seg Neuts % (Manual) Lymphocytes % (Manual) Nucleated RBC % Seg Neutrophils # Seg Neutrophils # Man Lymphocytes # (Manual) Monocytes # (Manual) PT INR APTT D-Dimer ABG pH 7.453 H POC ABG pCO2 59.6 H POC ABG pO2 ABG pO2 ABG HCO3 ABG O2 Saturation ABG Base Excess ABG Hemoglobin 10.0 L ABG Oxyhemoglobin ABG Sodium 134.2 L ABG Potassium 3.3 L ABG Chloride 92.0 L ABG Glucose 305 H Oxyhemoglobin Sodium Potassium Chloride Carbon Dioxide BUN Creatinine Glucose POC Glucose 234 H Lactic Acid Calcium Magnesium Ferritin Total Bilirubin Direct Bilirubin AST ALT Alkaline Phosphatase Lactate Dehydrogenase C-Reactive Protein Total Protein Albumin Triglycerides 203 H Arterial Blood Glucose 305 H Arterial Blood Ionized Calcium Urine WBC (Auto) Coronavirus (PCR) SARS-CoV-2 IgG Ab Crossmatch 06/26/20 06/26/20 06/26/20 11:58 17:58 21:32 WBC RBC Hgb Hct MCV MCH MCHC RDW Lymph % (Auto) Lymph # (Auto) Seg Neutrophils % Seg Neuts % (Manual) Lymphocytes % (Manual) Nucleated RBC % Seg Neutrophils # Seg Neutrophils # Man Lymphocytes # (Manual) Monocytes # (Manual) PT INR APTT D-Dimer ABG pH POC ABG pCO2 POC ABG pO2 ABG pO2 ABG HCO3 ABG O2 Saturation ABG Base Excess ABG Hemoglobin ABG Oxyhemoglobin ABG Sodium ABG Potassium ABG Chloride ABG Glucose Oxyhemoglobin Sodium Potassium Chloride Carbon Dioxide BUN Creatinine Glucose POC Glucose 198 H 193 H 191 H Lactic Acid Calcium Magnesium Ferritin Total Bilirubin Direct Bilirubin AST ALT Alkaline Phosphatase Lactate Dehydrogenase C-Reactive Protein Total Protein Albumin Triglycerides Arterial Blood Glucose Arterial Blood Ionized Calcium Urine WBC (Auto) Coronavirus (PCR) SARS-CoV-2 IgG Ab Crossmatch 06/26/20 06/27/20 06/27/20 23:40 04:35 05:32 WBC RBC Hgb Hct MCV MCH MCHC RDW Lymph % (Auto) Lymph # (Auto) Seg Neutrophils % Seg Neuts % (Manual) Lymphocytes % (Manual) Nucleated RBC % Seg Neutrophils # Seg Neutrophils # Man Lymphocytes # (Manual) Monocytes # (Manual) PT INR APTT D-Dimer ABG pH 7.464 H POC ABG pCO2 60.8 H POC ABG pO2 ABG pO2 ABG HCO3 ABG O2 Saturation ABG Base Excess ABG Hemoglobin 10.1 L ABG Oxyhemoglobin ABG Sodium ABG Potassium 2.9 L ABG Chloride 92.0 L ABG Glucose 298 H Oxyhemoglobin Sodium Potassium Chloride Carbon Dioxide BUN Creatinine Glucose POC Glucose 241 H 211 H Lactic Acid Calcium Magnesium Ferritin Total Bilirubin Direct Bilirubin AST ALT Alkaline Phosphatase Lactate Dehydrogenase C-Reactive Protein Total Protein Albumin Triglycerides Arterial Blood Glucose 298 H Arterial Blood Ionized Calcium Urine WBC (Auto) Coronavirus (PCR) SARS-CoV-2 IgG Ab Crossmatch 06/27/20 06/27/20 06/27/20 12:37 18:08 20:52 WBC RBC Hgb Hct MCV MCH MCHC RDW Lymph % (Auto) Lymph # (Auto) Seg Neutrophils % Seg Neuts % (Manual) Lymphocytes % (Manual) Nucleated RBC % Seg Neutrophils # Seg Neutrophils # Man Lymphocytes # (Manual) Monocytes # (Manual) PT INR APTT D-Dimer ABG pH POC ABG pCO2 POC ABG pO2 ABG pO2 ABG HCO3 ABG O2 Saturation ABG Base Excess ABG Hemoglobin ABG Oxyhemoglobin ABG Sodium ABG Potassium ABG Chloride ABG Glucose Oxyhemoglobin Sodium Potassium Chloride Carbon Dioxide BUN Creatinine Glucose POC Glucose 182 H 197 H 195 H Lactic Acid Calcium Magnesium Ferritin Total Bilirubin Direct Bilirubin AST ALT Alkaline Phosphatase Lactate Dehydrogenase C-Reactive Protein Total Protein Albumin Triglycerides Arterial Blood Glucose Arterial Blood Ionized Calcium Urine WBC (Auto) Coronavirus (PCR) SARS-CoV-2 IgG Ab Crossmatch 06/27/20 06/28/20 06/28/20 Unknown 04:17 04:50 WBC RBC Hgb Hct MCV MCH MCHC RDW Lymph % (Auto) Lymph # (Auto) Seg Neutrophils % Seg Neuts % (Manual) Lymphocytes % (Manual) Nucleated RBC % Seg Neutrophils # Seg Neutrophils # Man Lymphocytes # (Manual) Monocytes # (Manual) PT INR APTT D-Dimer ABG pH POC ABG pCO2 58.6 H POC ABG pO2 60.1 L ABG pO2 ABG HCO3 ABG O2 Saturation ABG Base Excess ABG Hemoglobin 10.0 L ABG Oxyhemoglobin ABG Sodium 125.3 L ABG Potassium ABG Chloride 93.0 L ABG Glucose 308 H Oxyhemoglobin Sodium Potassium 2.9 L* Chloride 93.4 L Carbon Dioxide 42 H* BUN Creatinine 0.3 L Glucose 211 H POC Glucose 252 H Lactic Acid Calcium 8.1 L Magnesium Ferritin Total Bilirubin Direct Bilirubin AST ALT Alkaline Phosphatase Lactate Dehydrogenase C-Reactive Protein Total Protein 5.1 L Albumin 2.4 L Triglycerides Arterial Blood Glucose 308 H Arterial Blood Ionized Calcium Urine WBC (Auto) Coronavirus (PCR) SARS-CoV-2 IgG Ab Crossmatch 06/28/20 06/28/20 06:35 06:35 WBC 18.9 H RBC 2.85 L Hgb 9.5 L Hct 28.4 L MCV 100 H MCH 33 H MCHC RDW 17.3 H Lymph % (Auto) Lymph # (Auto) Seg Neutrophils % 88.6 H Seg Neuts % (Manual) Lymphocytes % (Manual) Nucleated RBC % Seg Neutrophils # 15.9 H Seg Neutrophils # Man Lymphocytes # (Manual) Monocytes # (Manual) PT INR APTT D-Dimer ABG pH POC ABG pCO2 POC ABG pO2 ABG pO2 ABG HCO3 ABG O2 Saturation ABG Base Excess ABG Hemoglobin ABG Oxyhemoglobin ABG Sodium ABG Potassium ABG Chloride ABG Glucose Oxyhemoglobin Sodium Potassium Chloride 94.2 L Carbon Dioxide 38 H BUN Creatinine 0.3 L Glucose 228 H POC Glucose Lactic Acid Calcium Magnesium Ferritin Total Bilirubin Direct Bilirubin AST ALT Alkaline Phosphatase Lactate Dehydrogenase C-Reactive Protein Total Protein 6.1 L Albumin 2.7 L Triglycerides Arterial Blood Glucose Arterial Blood Ionized Calcium Urine WBC (Auto) Coronavirus (PCR) SARS-CoV-2 IgG Ab Crossmatch Allied health notes reviewed: RT
[2020-06-28] MEDS ORDERED: INSULIN GLARGINE 100 UNITS/ML SUB-Q ONE (10:00)
[2020-06-28] MEDS: FOLIC ACID 1 MG TAB PO SCH (10:27)
[2020-06-28] MEDS: QUEtiapine 100 MG TAB PO SCH ×2 (10:27→21:16)
[2020-06-28] MEDS: DOCUSATE SODIUM 100 MG/10 ML ORAL LIQD PO SCH ×2 (10:27→21:15)
[2020-06-28] MEDS: SENNOSIDES 8.6 MG TAB PO SCH ×2 (10:28→21:16)
[2020-06-28] MEDS: LANSOPRAZOLE 30 MG SOLUTAB FEEDTUBE SCH (10:28)
--- NOTE | 2020-06-28 10:30 | Progress Note ---
Assessment and Plan Assessment and plan: - Acute hypoxemic respiratory failure; Patient intubated and on vent support --Severe COVID-19 bilateral pneumonia Coronavirus protocol: IV steroid therapy, completed remdesivir, isolation precautions, contact precautions, prone positioning while in bed, pulmonary toilet. ID following SARS CoV-2 IgG positive patient is NOT a candidate for COVID convalescent plasma --Severe sepsis/septic shock, due to COVID 19 PNA cont pressors as needed -- Acute kidney injury (SEN) , likely vasomotor nephropathy Resolved, IV fluids, avoid nephrotoxins --Acute on chronic anemia Guaiac test positive GI evaluation PPIs Continue to monitor -- Elevated liver function tests Suspected secondary to alcoholic liver disease. Supportive care, alcohol cessation, patient counseled. --Colonic distention GI evaluation -recommend stool softeners Serial abdominal x-rays Monitor electrolytes and replete -- DVT prophylaxis On therapeutic Lovenox 06/16/2020. Patient currently on mechanical ventilation with AC mode rate 30, tidal volume 500, FiO2 70% and PEEP of 16. Continue anticoagulation with Lovenox 110 milligrams subcu every 12 hours. Wean sedation of fentanyl/Versed as needed. Currently with IV steroids of Solu-Medrol 40 mg IV every 12 hours. Patient will likely need tracheostomy per pulmonary recommendations. Continue pressors to maintain MAP > 65. 06/17/2020. Patient currently on mechanical ventilation with AC mode rate 30, tidal volume 500, FiO2 65% and PEEP of 16. Continue anticoagulation with Lovenox 110 milligrams subcu every 12 hours. Wean sedation of fentanyl/Versed as needed. Currently with IV steroids of Solu-Medrol 40 mg IV every 12 hours. Patient will likely need tracheostomy per pulmonary recommendations. 06/18/2020. Patient currently on mechanical ventilation with AC mode rate 30, t idal volume 500, FiO2 70% and PEEP of 16. Continue Lovenox for anticoagulation and fentanyl/Versed for sedation. Wean steroids per pulmonary. CIWA protocol initiated for history of EtOH dependence 06/19/2020. Patient currently on mechanical ventilation with AC mode rate 30, tidal volume 500, FiO2 60% and PEEP of 16. Wean FiO2 as tolerated per protocol. Continue Lovenox for anticoagulation and fentanyl/Versed for sedation. Wean steroids per pulmonary. CIWA protocol initiated for history of EtOH dependence 06/20/2020. Patient currently on mechanical ventilation with AC mode rate 30, tidal volume 500, FiO2 60% and PEEP of 16. Wean FiO2 as tolerated, SBT per protocol. Continue Lovenox for anticoagulation and fentanyl/Versed for sedation. Wean steroids per pulmonary. Continue pressors to maintain MAP > 65 mmHg. Patient remains on ETT. Consider tracheostomy placement once oxygenation is better per pulmonary. CIWA protocol initiated for history of EtOH dependence. 06/21/2020. Patient with a small apical pneumothorax discovered yesterday. General surgery consulted and consider placing chest tube. Follow-up serial chest x-ray patient currently on mechanical ventilation with AC mode rate 30, ti jocelin volume 500, FiO2 60% and PEEP of 16. Wean FiO2 as tolerated, SBT per p rotocol. Continue Lovenox for anticoagulation and fentanyl/Versed for sedation. Wean steroids per pulmonary. Continue pressors to maintain MAP > 65 mmHg. Patient remains on ETT. Consider tracheostomy placement once oxygenation is better per pulmonary. CIWA protocol initiated for history of EtOH dependence. 06/22. Status post right chest tube placement yesterday. Remains mechanically ventilated on pressors. Examination today shows slightly distended abdomen. KUB ordered. Awaiting stool guaiac. Plan to get a GI evaluation. 06/23. Has colonic distention on the x-ray. Discussed with GI-advised stool softeners for now and close monitoring. No indication for colonic decompression at this time. Guaiac test is positive. No emergent indication for endoscopy at this point as per GI. Continue to monitor hemoglobin. 06/24. Remains intubated. On pressors. GI following for positive guaiac stool and anemia, and colonic distention. 06/25. Repeat abdominal xray ordered. Remains on mechanical ventilation. 06/26. Abdominal xray - resolved colonic distension. Mechanically ventilated. 06/27. Plan for trach and PEG. 06/28: Awaiting trach and Peg. S\ome Bm REPORTED, will continue to monitor The high probability of a clinically significant, sudden or life threatening deterioration of the [respiratory] system(s) required my full and direct attention, intervention and personal management. The aggregate critical care time was [31] minutes. This time is in addition to time spent performing reported procedures but includes the following: [x] Data Review and interpretation [x] Patient assessment and monitoring of vital signs [x] Documentation [x] Medication orders and management History Interval history: PT seen and examined. Remains on full clinical ventilation Hospitalist Physical - Physical exam Narrative exam: VITAL SIGNS: Reviewed. GENERAL: Sedated and intubated HEAD: No signs of head trauma. MOUTH: Oropharynx is normal. NECK: No adenopathy, no JVD. CHEST: Chest with diminished breath sounds bilaterally. No wheezes, rales, or rhonchi. CARDIAC: normal S1 and S2, without murmurs, gallops, or rubs. ABDOMEN: Slightly distended, bowel sounds hypoactive NEUROLOGIC EXAM: Sedated and intubated - Constitutional Vitals: Temp Pulse Resp BP Pulse Ox 98.0 F 89 30 H 103/71 94 06/28/20 08:00 06/28/20 08:04 06/28/20 07:25 06/28/20 08:04 06/28/20 08:04 General appearance: Present: no acute distress, other Results - Labs CBC & Chem 7: 06/28/20 06:35 06/28/20 06:35 Labs: Laboratory Last Values WBC 18.9 K/mm3 (4.5-11.0) H 06/28/20 06:35 RBC 2.85 M/mm3 (3.65-5.03) L 06/28/20 06:35 Hgb 9.5 gm/dl (11.8-15.2) L 06/28/20 06:35 Hct 28.4 % (35.5-45.6) L 06/28/20 06:35 MCV 100 fl (84-94) H 06/28/20 06:35 MCH 33 pg (28-32) H 06/28/20 06:35 MCHC 33 % (32-34) 06/28/20 06:35 RDW 17.3 % (13.2-15.2) H 06/28/20 06:35 Plt Count 339 K/mm3 (140-440) 06/28/20 06:35 Lymph % (Auto) 4.4 % (13.4-35.0) L 06/16/20 04:00 [place] % (Auto) 3.7 % (0.0-7.3) 06/28/20 06:35 Eos % (Auto) 0.5 % (0.0-4.3) 06/28/20 06:35 Baso % (Auto) 0.3 % (0.0-1.8) 06/16/20 04:00 Lymph # (Auto) 0.6 K/mm3 (1.2-5.4) L 06/16/20 04:00 [place] # (Auto) 0.7 K/mm3 (0.0-0.8) 06/28/20 06:35 Eos # (Auto) 0.1 K/mm3 (0.0-0.4) 06/28/20 06:35 Baso # (Auto) 0.0 K/mm3 (0.0-0.1) 06/28/20 06:35 Add Manual Diff Complete 06/22/20 Unknown Total Counted 100 06/22/20 Unknown Seg Neutrophils % 88.6 % (40.0-70.0) H 06/28/20 06:35 Seg Neuts % (Manual) 92.0 % (40.0-70.0) H 06/22/20 Unknown Band Neutrophils % 0 % 06/15/20 Unknown Lymphocytes % (Manual) 5.0 % (13.4-35.0) L 06/22/20 Unknown Reactive Lymphs % (Man) 0 % 06/15/20 Unknown Monocytes % (Manual) 3.0 % (0.0-7.3) 06/22/20 Unknown Eosinophils % (Manual) 0 % (0.0-4.3) 06/15/20 Unknown Basophils % (Manual) 0 % (0.0-1.8) 06/15/20 Unknown Metamyelocytes % 3.0 % 06/15/20 Unknown Myelocytes % 0 % 06/15/20 Unknown Promyelocytes % 0 % 06/15/20 Unknown Blast Cells % 0 % 06/15/20 Unknown Nucleated RBC % Not Reportable 06/22/20 Unknown Seg Neutrophils # 15.9 K/mm3 (1.8-7.7) H 06/28/20 06:35 Seg Neutrophils # Man 13.0 K/mm3 (1.8-7.7) H 06/22/20 Unknown Band Neutrophils # 0.0 K/mm3 06/22/20 Unknown Lymphocytes # (Manual) 0.7 K/mm3 (1.2-5.4) L 06/22/20 Unknown Abs React Lymphs (Man) 0.0 K/mm3 06/22/20 Unknown Monocytes # (Manual) 0.4 K/mm3 (0.0-0.8) 06/22/20 Unknown Eosinophils # (Manual) 0.0 K/mm3 (0.0-0.4) 06/22/20 Unknown Basophils # (Manual) 0.0 K/mm3 (0.0-0.1) 06/22/20 Unknown Metamyelocytes # 0.0 K/mm3 06/22/20 Unknown Myelocytes # 0.0 K/mm3 06/22/20 Unknown Promyelocytes # 0.0 K/mm3 06/22/20 Unknown Blast Cells # 0.0 K/mm3 06/22/20 Unknown WBC Morphology Not Reportable 06/22/20 Unknown Hypersegmented Neuts Not Reportable 06/22/20 Unknown Hyposegmented Neuts Not Reportable 06/22/20 Unknown Hypogranular Neuts Not Reportable 06/22/20 Unknown Smudge Cells Not Reportable 06/22/20 Unknown Toxic Granulation Not Reportable 06/22/20 Unknown Toxic Vacuolation Not Reportable 06/22/20 Unknown Dohle Bodies Not Reportable 06/22/20 Unknown Pelger-Huet Anomaly Not Reportable 06/22/20 Unknown Jason Rods Not Reportable 06/22/20 Unknown Platelet Estimate Consistent w auto 06/22/20 Unknown Clumped Platelets Not Reportable 06/22/20 Unknown Plt Clumps, EDTA Not Reportable 06/22/20 Unknown Large Platelets Not Reportable 06/22/20 Unknown Giant Platelets Not Reportable 06/22/20 Unknown Platelet Satelliting Not Reportable 06/22/20 Unknown Plt Morphology Comment Not Reportable 06/22/20 Unknown RBC Morphology Not Reportable 06/22/20 Unknown Dimorphic RBCs Not Reportable 06/22/20 Unknown Polychromasia Few 06/22/20 Unknown Hypochromasia Not Reportable 06/22/20 Unknown Poikilocytosis Not Reportable 06/22/20 Unknown Anisocytosis Few 06/22/20 Unknown Microcytosis Not Reportable 06/22/20 Unknown Macrocytosis Few 06/22/20 Unknown Spherocytes Not Reportable 06/22/20 Unknown Pappenheimer Bodies Not Reportable 06/22/20 Unknown Sickle Cells Not Reportable 06/22/20 Unknown Target Cells Not Reportable 06/22/20 Unknown Tear Drop Cells Not Reportable 06/22/20 Unknown Ovalocytes Not Reportable 06/22/20 Unknown Stomatocytes Few 06/14/20 07:15 Helmet Cells Not Reportable 06/22/20 Unknown [place] Bodies Not Reportable 06/22/20 Unknown [place] Rings Not Reportable 06/22/20 Unknown [place] Cells Not Reportable 06/22/20 Unknown Bite Cells Not Reportable 06/22/20 Unknown Crenated Cell Not Reportable 06/22/20 Unknown Elliptocytes Not Reportable 06/22/20 Unknown Acanthocytes (Spur) Not Reportable 06/22/20 Unknown Rouleaux Not Reportable 06/22/20 Unknown Hemoglobin C Crystals Not Reportable 06/22/20 Unknown Schistocytes Not Reportable 06/22/20 Unknown Malaria parasites Not Reportable 06/22/20 Unknown Josue Bodies Not Reportable 06/22/20 Unknown Hem Pathologist Commnt No 06/22/20 Unknown PT 11.8 Sec. (12.2-14.9) L 06/22/20 14:29 INR 0.88 (0.87-1.13) 06/22/20 14:29 APTT 23.5 Sec. (24.2-36.6) L 06/22/20 14:29 D-Dimer 1887.82 ng/mlDDU (0-234) H 05/20/20 08:16 Heparin Anti-Xa Level 0.44 U.I./ml (0.3-0.7) 06/28/20 06:35 ABG pH 7.446 (7.320-7.450) 06/28/20 04:17 POC ABG pCO2 58.6 mmHg (32.0-48.0) H 06/28/20 04:17 ABG pCO2 69.8 mm Hg 06/22/20 03:50 POC ABG pO2 60.1 mmHg (83-108) L 06/28/20 04:17 ABG pO2 89.6 mm Hg (80.0-90.0) 06/22/20 03:50 POC ABG HCO3 39.4 06/28/20 04:17 ABG HCO3 47.5 mmol/L (20.0-26.0) H 06/22/20 03:50 ABG O2 Saturation 97.1 % (95.0-99.0) 06/22/20 03:50 ABG O2 Content 6.0 (0.0-44) 06/22/20 03:50 POC ABG Base Excess 13.5 06/28/20 04:17 ABG Base Excess 22.0 mmol/L (-2.0-3.0) H 06/22/20 03:50 ABG Hemoglobin 10.0 (12.0-17.5) L 06/28/20 04:17 ABG Oxyhemoglobin 96.6 (94-98) 06/24/20 02:45 ABG Carboxyhemoglobin 2.6 % (0.0-5.0) 06/22/20 03:50 ABG Methemoglobin 0.3 (0.0-1.5) 06/24/20 02:45 ABG Sodium 125.3 mmol/L (136.0-145.0) L 06/28/20 04:17 ABG Potassium 3.5 mmol/L (3.40-4.50) 06/28/20 04:17 ABG Chloride 93.0 mmol/L (98-107) L 06/28/20 04:17 ABG Glucose 308 mg/dL (65-95) H 06/28/20 04:17 Oxyhemoglobin 94.1 % (95.0-99.0) L 06/22/20 03:50 Carboxyhemoglobin 1.1 (0.5-1.5) 06/24/20 02:45 FiO2 40.0 06/28/20 04:17 Sodium 140 mmol/L (137-145) 06/28/20 06:35 Potassium 3.7 mmol/L (3.6-5.0) D 06/28/20 06:35 Chloride 94.2 mmol/L (98-107) L 06/28/20 06:35 Carbon Dioxide 38 mmol/L (22-30) H 06/28/20 06:35 Anion Gap 12 mmol/L 06/28/20 06:35 BUN 14 mg/dL (9-20) 06/28/20 06:35 Creatinine 0.3 mg/dL (0.8-1.3) L 06/28/20 06:35 Estimated GFR > 60 ml/min 06/28/20 06:35 BUN/Creatinine Ratio 47 % 06/28/20 06:35 Glucose 228 mg/dL (75-100) H 06/28/20 06:35 POC Glucose 252 mg/dL (70-105) H 06/28/20 04:50 Lactic Acid 1.80 mmol/L (0.7-2.0) 05/09/20 Unknown Calcium 9.1 mg/dL (8.4-10.2) 06/28/20 06:35 Phosphorus 3.10 mg/dL (2.5-4.5) 06/15/20 04:00 Magnesium 1.90 mg/dL (1.7-2.3) 06/15/20 04:00 Ferritin 1496.0 ng/mL (30.0-300.0) H 06/14/20 11:50 Total Bilirubin 0.60 mg/dL (0.1-1.2) 06/28/20 06:35 Direct Bilirubin 0.6 mg/dL (0-0.2) H 05/11/20 07:30 Indirect Bilirubin 0.9 mg/dL 05/11/20 07:30 AST 24 units/L (5-40) 06/28/20 06:35 ALT 32 units/L (7-56) 06/28/20 06:35 Alkaline Phosphatase 82 units/L (35-129) 06/28/20 06:35 Lactate Dehydrogenase 705 units/L (91-180) H 05/20/20 08:16 C-Reactive Protein 3.10 mg/dL (0.00-1.30) H 05/20/20 08:16 Total Protein 6.1 g/dL (6.3-8.2) L 06/28/20 06:35 Albumin 2.7 g/dL (3.9-5) L 06/28/20 06:35 Albumin/Globulin Ratio 0.8 % 06/28/20 06:35 Triglycerides 203 mg/dL (2-149) H 06/26/20 04:49 Procalcitonin 0.94 ng/mL (<0.15) 06/14/20 11:50 Arterial Blood Glucose 308 mg/dL (65-95) H 06/28/20 04:17 Arterial Blood Ionized Calcium 4.6 mg/dL (4.6-5.3) 06/28/20 04:17 Urine Color Fauzia (Yellow) 05/10/20 Unknown Urine Turbidity Clear (Clear) 05/10/20 Unknown Urine pH 5.0 (5.0-7.0) 05/10/20 Unknown Ur Specific Mobile 1.019 (1.003-1.030) 05/10/20 Unknown Urine Protein 100 mg/dl mg/dL (Negative) 05/10/20 Unknown Urine Glucose (UA) Neg mg/dL (Negative) 05/10/20 Unknown Urine Ketones Neg mg/dL (Negative) 05/10/20 Unknown Urine Blood Lg (Negative) 05/10/20 Unknown Urine Nitrite Neg (Negative) 05/10/20 Unknown Urine Bilirubin Neg (Negative) 05/10/20 Unknown Urine Urobilinogen 2.0 mg/dL (<2.0) 05/10/20 Unknown Ur Leukocyte Esterase Neg (Negative) 05/10/20 Unknown Urine WBC (Auto) 11.0 /HPF (0.0-6.0) H 05/10/20 Unknown Urine RBC (Auto) 2.0 /HPF (0.0-6.0) 05/10/20 Unknown U Epithel Cells (Auto) 1.0 /HPF (0-13.0) 05/10/20 Unknown Urine Bacteria (Auto) 1+ /HPF (Negative) 05/10/20 Unknown Urine Mucus Few /HPF 05/10/20 Unknown Plasma/Serum Alcohol < 0.01 % (0-0.07) 05/09/20 14:20 Coronavirus (PCR) Positive (Negative) A 05/10/20 Unknown SARS-CoV-2 IgG Ab Reactive (NonReactive) A 05/11/20 07:30 Blood Type B POSITIVE 06/21/20 14:18 Antibody Screen Negative 06/21/20 14:18 Crossmatch See Detail 06/21/20 14:18 - Diagnostic Impressions Diagnostic Impressions: Echocardiogram 05/20/20 13:02 Transthoracic Echocardiogram Indication: CHF BP: 97/73 Conclusions *The study quality is technically very difficult and limited. *The left ventricular chamber size, wall thickness and systolic function are within normal limits. There are no wall motion abnormalities observed. Ejection fraction is normal. *The estimated ejection fraction is 60-65%. *The pericardium appears normal. Findings Procedure Info: The study quality is technically difficult. Left Ventricle: The left ventricular chamber size, wall thickness and systolic function are within normal limits. There are no wall motion abnormalities observed. Ejection fraction is normal. The estimated ejection fraction is 60-65%. Abnormal left ventricular diastolic filling is observed, consistent with impaired relaxation. Left Atrium: The left atrium is normal in size with no visual thrombus identified. Right Ventricle: The right ventricle is not well visualized. Right Atrium: The right atrium is not well visualized. Aortic Valve: The aortic valve is trileaflet. The leaflets are thin with normal excursion. There is no aortic stenosis or regurgitation present. Mitral Valve: The mitral valve appears normal in structure and function. Tricuspid Valve: The tricuspid valve appears normal in structure and function. Unable to estimate the right ventricular systolic pressure. Pulmonic Valve: The pulmonic valve is not well visualized. There is no evidence of pulmonic regurgitation. There is no pulmonic stenosis. Pericardium: The pericardium appears normal. Pulmonary Artery: The main pulmonary artery is not well visualized. Venous: The inferior vena cava appears normal in size. Measurements Chambers 2D Name Value Normal Range IVSd (2D) 0.83 cm (0.6 - 1.1) LVPWd (2D) 0.83 cm (0.6 - 1.1) LVIDd (2D) 3.88 cm (3.7 - 5.6) LVIDs (2D) 2.46 cm (2 - 3.8) LV FS (2D) 36.52 % - EF Teichholz (2D) 66.97 % - Ao root diameter (2D) 3.47 cm (2 - 3.7) Volumes/Mass Name Value Normal Range LA ESV SP 4CH (A/L) 22.4 ml - LA ESV SP 2CH (A/L) 22.89 ml - LA ESV BP (A/L) 23.06 ml - LA ESV SP 4CH (MOD) 21.09 ml - LA ESV SP 2CH (MOD) 22.44 ml - Diastolic/Systolic Function Name Value Normal Range MV E-wave Vmax 0.48 m/sec - MV deceleration time 156.3 msec - MV A-wave Vmax 0.59 m/sec - MV E:A ratio 0.81 ratio - Aortic Valve Name Value Normal Range AV Vmax 0.97 m/sec - AV VTI 14.49 cm - AV peak gradient 3.73 mmHg - AV mean gradient 1.89 mmHg - LVOT diameter 2.09 cm - LVOT Vmax 0.72 m/sec - LVOT VTI 10.21 cm - LVOT peak gradient 2.05 mmHg - LVOT mean gradient 1.03 mmHg - SV LVOT 35.17 ml - INNA (continuity Vmax) 2.55 cm2 - INNA (continuity VTI) 2.43 cm2 - Tricuspid Valve Name Value Normal Range TV E-wave Vmax 0.37 m/sec - Pulmonic Valve/Qp:Qs Name Value Normal Range PV Vmax 0.72 m/sec - PV peak gradient 2.06 mmHg - RVOT Vmax 0.85 m/sec - RVOT VTI 9.89 cm - RVOT peak gradient 2.9 mmHg - PV acceleration time 72.31 msec - Cantor/IV: Voiding Method Condom Catheter IV Catheter Type [Right Upper PICC Line arm] IV Catheter Type [Right CVL Internal Jugular] IV Catheter Type [Right Peripheral IV Forearm] IV Catheter Type [Left Forearm Peripheral IV ] IV Catheter Type [Left Wrist] INT / Saline Lock IV Catheter Type [Right Hand] INT / Saline Lock IV Catheter Type [Left Hand] INT / Saline Lock IV Catheter Type [Left Peripheral IV Antecubital] Active Medications - Current Medications Current Medications: Generic Name Dose Route Start Last Admin Trade Name Freq PRN Reason Stop Dose Admin Acetaminophen 650 mg 06/14/20 10:07 06/21/20 20:21 Tylenol FEEDTUBE 650 mg Q4H PRN Administration Pain, Mild (1-3) Alprazolam 0.25 mg 05/20/20 17:53 06/25/20 04:11 Alprazolam 0.25 Mg Tab PO 0.25 mg Q8H PRN Administration Anxiety Lipase/Protease/Amylase 1 each 05/22/20 13:01 Lipase 10,500/Protease 25,000/Amylase 43,750 (Units) Dr Newell FEEDTUBE PRN PRN For Clogged Feeding Tube Bisacodyl 10 mg 06/26/20 22:00 06/28/20 10:27 Bisacodyl 10 Mg Rect Supp TX 10 mg BID DESIRE Administration Docusate Sodium 100 mg 05/28/20 14:00 06/28/20 10:27 Docusate Sodium 100 Mg/10 Ml Oral Liqd PO 100 mg BID DESIRE Administration Fentanyl 50 mcg 06/22/20 09:48 Fentanyl 100 Mcg/2 Ml Inj IV Q10MIN PRN ANALGESIA Folic Acid 1 mg 05/09/20 15:36 06/28/20 10:27 Folvite PO 1 mg QDAY [facility] Administration Heparin Sodium (Porcine) 4,300 unit 06/22/20 12:48 Heparin 10,000 Units/10 Ml Vial 40 unit/kg (4300 unit) IV Q6H PRN Anti-Xa Assay < 0.1 units/ml Hydrophilic Ointment 1 applic 05/21/20 20:33 Lip Therapy Vaseline TP Q2HR PRN Dry Lips Midazolam HCl 100 mg/ Sodium 100 mls @ 2 mls/hr 06/02/20 14:00 06/28/20 05:04 Chloride IV 5 mg/hr TITR DESIRE 5 mls/hr Administration Protocol 2 MG/HR Norepinephrine 4 mg in 250 mls @ 7.5 mls/hr 06/04/20 16:00 06/28/20 09:28 Levophed Drip 4 Mg/Ns 250 Ml IV 4 mcg/min TITR DESIRE 15 mls/hr Titration Protocol 2 MCG/MIN Fentanyl Citrate 2,000 mcg in 100 mls @ 5.32 mls/hr 06/09/20 14:00 06/28/20 09:27 Fentanyl Drip Premix IV 4 mcg/kg/hr TITR DESIRE 21.28 mls/hr Administration Protocol 1 MCG/KG/HR Vasopressin 20 unit/ Sodium 101 mls @ 9.09 mls/hr 06/09/20 18:00 Chloride IV TITR DESIRE Protocol 0.03 UNITS/MIN Heparin Sodium/Sodium Chloride 25,000 unit in 500 mls @ 30 mls/hr 06/22/20 13:00 06/28/20 07:56 Heparin/ 0.45% Nacl-25,000 Unit/500 Ml IV 1,500 units/hr TITR DESIRE 30 mls/hr Titration Protocol 1,500 UNITS/HR Propofol 1,000 mg in 100 mls @ 3.24 mls/hr 06/24/20 22:00 06/28/20 06:09 Diprivan 10 Mg/Ml IV 50 mcg/kg/min TITR DESIRE 32.4 mls/hr Administration Protocol 5 MCG/KG/MIN Insulin Glargine 24 units 06/26/20 22:00 06/27/20 21:32 Insulin Glargine 100 Units/Ml SUB-Q 24 units QHS DESIRE Administration Insulin Human Lispro 0 unit 05/29/20 14:00 06/28/20 05:06 Insulin Lispro 100 Unit/Ml Vial 3 Ml SUB-Q 4 unit Q6H DESIRE Administration Protocol Lansoprazole 30 mg 06/28/20 10:00 06/28/20 10:28 Lansoprazole 30 Mg Solutab FEEDTUBE 30 mg QDAY DESIRE Administration Methylprednisolone Sodium Succinate 40 mg 05/20/20 18:00 06/28/20 05:05 Methylprednisolone Sod Succinate 40 Mg/1 Ml Inj IV 40 mg Q12H DESIRE Administration Multi-Ingred Cream/Lotion/Oil/Oint 1 applic 05/21/20 20:33 Mineral Oil/Petrolatum, White Ophth Oint 3.5 Gm OU Q4HR PRN Dry Eye(s) Phenobarbital 20 mg 06/18/20 14:00 06/28/20 05:05 Phenobarbital 20 Mg/5 Ml Oral Liqd FEEDTUBE 20 mg Q8HR DESIRE Administration Quetiapine Fumarate 300 mg 06/10/20 22:00 06/28/20 10:27 Seroquel PO 300 mg BID DESIRE Administration Senna 17.2 mg 06/07/20 10:00 06/28/20 10:28 Senokot PO 17.2 mg BID DESIRE Administration Simple Syrup 15 ml 05/22/20 13:01 Simple Syrup 15 Ml FEEDTUBE PRN PRN Hypoglycemia Simple Syrup 30 ml 05/22/20 13:01 Simple Syrup 15 Ml FEEDTUBE PRN PRN Hypoglycemia Sodium Bicarbonate 325 mg 05/22/20 13:01 Sodium Bicarbonate 325 Mg Tab FEEDTUBE PRN PRN For Clogged Feeding Tube Sodium Chloride 10 ml 05/09/20 22:00 06/28/20 10:28 Sodium Chloride Flush Syringe 10 Ml IV 10 ml BID DESIRE Administration Nutrition/Malnutrition Assess - Dietary Evaluation Nutrition/Malnutrition Findings: Nutrition Notes Start: 05/17/20 14:10 Freq: Status: Active Protocol: Document 06/25/20 13:36 AB (Rec: 06/25/20 13:42 AB [id number]) Co-Sign 06/25/20 13:36 LP Nutrition Notes Initial or Follow up Reassessment Current Diagnosis Sepsis,Respiratory Failure Other Pertinent Diagnosis Bilat pneu, COVID-19 (+), EtOH dependence Current Diet Vital HP at 65 ml/hr (goal rate) Labs/Tests Na 134 Cr 0.3 POC BG 170 Pertinent Medications Reviewed Height 6 ft Weight 108 kg [place] Body Weight (kg) 80.90 BMI 32.3 Weight Status Obese Subjective/Other Information F/U for TF tolerance. Per RN, pt is tolerating TF at goal. Per RN, the MD came by and said that there is no ileus. Percent of energy/protein needs met: 85%/84% Burn Absent Trauma Absent GI Symptoms None Current % PO Negligible Minimum of two criteria No physical signs of malnutrition #1 Nutrition Diagnosis Inadequate oral intake Diagnosis Progress(for reassessment Continues documentation) Is patient on ventilator? Yes Is Patient Ambulatory and/or Out of Bed No REE-([facility]-confined to bed) 2371.200 Kcal/Kg value to use for calculation 17 Approximate Energy Requirements Using 1836 kcal/Kg Calculation Used for Recommendations Kcal/kg Additional Notes Pro needs >2g/kg IBW: at least 162g/day Fluid needs 1ml/kcal Nutrition Intervention Change Diet Order: Continue TF Nutrition Support: Vital HP at 65ml/hr with 50ml water flush q4h. Kcal 1,560 Protein (gm) 136 Fluid (mL) 1,304 Goal #1 TF tolerance Goal #2 TF (at goal rate) to meet at least 75% energy and pro needs Anticipated Discharge Needs: Unable to identify at this time Follow-Up By: 06/30/20 Additional Comments F/U TF tolerance
[2020-06-28 13:14] LABS: Band Neutrophils # (Manual) 0.4 K/mm3; Large Platelets Few; Total Cells Counted 100; Toxic Granulation 2+
[2020-06-28 13:15] LABS: Anisocytosis 1+; Platelet Estimate Consistent w Auto
[2020-06-28] MEDS: INSULIN GLARGINE 100 UNITS/ML SUB-Q SCH (21:19)
[2020-06-29] MEDS: HEPARIN/ 0.45% NACL DRIP 25,000 UNIT/500 ML BAG IV SCH ×2 (01:18→14:56)
[2020-06-29] MEDS: INSULIN LISPRO 100 UNIT/ML VIAL 3 mL SUB-Q SCH ×4 (01:18→18:28)
[2020-06-29] MEDS: fentaNYL DRIP Premix 2,000 MCG/100 ML BAG IV SCH ×4 (04:22→20:22)
[2020-06-29] MEDS: MIDAZOLAM 100 MG in SODIUM CHLORIDE 0.9% 80 ML IV SCH (05:12)
[2020-06-29] MEDS: PHENobarbital 20 MG/5 ML ORAL LIQD FEEDTUBE SCH ×3 (05:14→21:43)
[2020-06-29] MEDS: methylPREDNISolone Sod Succinate 40 MG/1 ML INJ IV SCH ×2 (05:24→18:28)
[2020-06-29 05:46] LABS: Hematocrit 28.5 % (35.5-45.6); Hemoglobin 10.1 gm/dl (11.8-15.2); Mean Corpuscular HGB Conc 36 % (32-34); Mean Corpuscular Volume 101 fl (84-94); Platelet Count 360 K/mm3 (140-440); Red Blood Count 2.82 M/mm3 (3.65-5.03); Red Cell Distribution Width 17.5 % (13.2-15.2)
[2020-06-29 05:47] LABS: Basophils % (Auto) 1.5 % (0.0-1.8); Eosinophils % (Auto) 0.4 % (0.0-4.3); Lymphocytes % (Auto) 10.7 % (13.4-35.0); Monocytes % (Auto) 5.2 % (0.0-7.3)
[2020-06-29 05:48] LABS: Basophils # (Auto) 0.3 K/mm3 (0.0-0.1); Eosinophils # (Auto) 0.1 K/mm3 (0.0-0.4)
[2020-06-29 06:02] LABS: Albumin 2.2 g/dL (3.9-5); Blood Urea Nitrogen 11 mg/dL (9-20); Calcium 8.7 mg/dL (8.4-10.2); Hemolysis Index 60
[2020-06-29 06:05] LABS: BUN/Creatinine Ratio 55
[2020-06-29 06:21] LABS: Alanine Aminotransferase < 5 units/L (7-56)
--- NOTE | 2020-06-29 08:37 | Progress Note ---
Assessment and Plan - Acute hypoxemic respiratory failure; Patient intubated and on vent support --Severe COVID-19 bilateral pneumonia Coronavirus protocol: IV steroid therapy, completed remdesivir, isolation precautions, contact precautions, prone positioning while in bed, pulmonary toilet. ID following SARS CoV-2 IgG positive patient is NOT a candidate for COVID convalescent plasma --Severe sepsis/septic shock, due to COVID 19 PNA cont pressors as needed -- Acute kidney injury (SEN) , likely vasomotor nephropathy Resolved, IV fluids, avoid nephrotoxins --Acute on chronic anemia Guaiac test positive GI evaluation PPIs Continue to monitor -- Elevated liver function tests Suspected secondary to alcoholic liver disease. Supportive care, alcohol cessation, patient counseled. --Colonic distention GI evaluation -recommend stool softeners Serial abdominal x-rays Monitor electrolytes and replete --History of alcohol dependence, status post CIWA protocol along with thiamine folic acid and multivitamin -- DVT prophylaxis On therapeutic Lovenox The high probability of a clinically significant, sudden or life threatening deterioration of the [respiratory, MENTAL HYGI[employer] CONSULTANT, CVS] system(s) required my full and direct attention, intervention and personal management. The aggregate critical care time was [31] minutes. This time is in addition to time spent performing reported procedures but includes the following: [x] Data Review and interpretation [x] Patient assessment and monitoring of vital signs [x] Documentation [x] Medication orders and management Brief History: 50 YO Male with Obesity, ETOH Dependence presents to ED for evaluation for shortness of breath, generalized weakness, fatigue, malaise, body aches, decreased exercise tolerance over the past 5 days. EMS was notified and upon arrival the patient was found to be in distress with a pulse oximetry of 76% on room air as well as fever to 103 F. In the ER chest x-ray and was found to have bilateral pneumonia. Patient admitted to medical floor and initiated on pneumonia protocol as well as COVID-19 protocol. Patient reports being diagnosed with coronavirus 2 days ago. 05/10- 05/17: follow inflammatory markers, consulted ID/pulmonary. patient on high flow O2 05/18/20; patient feels slightly better still hypoxic, requiring continuous high flow oxygen and BiPAP Respiratory team trying to wean 05/19/20; patient is severely hypoxemic requiring continuous BiPAP today, complains of generalized weakness Trying to wean off high flow oxygen, patient is in isolation 05/20/2020; patient remains on high flow oxygen/BiPAP/100% nonrebreather. Still is hypoxemic Has sinus tachycardia patient in mild distress Wean off high flow oxygen as tolerated, pulmonary critical following 05/21/20; patient is critically ill, on continuous BiPAP remains hypoxemic in mild distress. Patient has severe Covid Pneumonia with persistent hypoxemia and poor prognosis. 05/22/2020: Patient was intubated last night because of persistent hypoxemia. 05/23-06/15: Remains on ventilatory support, unable to wean off from the vent. 06/16/2020. Patient currently on mechanical ventilation with AC mode rate 30, tidal volume 500, FiO2 70% and PEEP of 16. Continue anticoagulation with Lovenox 110 milligrams subcu every 12 hours. Wean sedation of fentanyl/Versed as needed. Currently with IV steroids of Solu-Medrol 40 mg IV every 12 hours. Patient will likely need tracheostomy per pulmonary recommendations. Continue pressors to maintain MAP > 65. 06/17/2020. Patient currently on mechanical ventilation with AC mode rate 30, tidal volume 500, FiO2 65% and PEEP of 16. Continue anticoagulation with Lovenox 110 milligrams subcu every 12 hours. Wean sedation of fentanyl/Versed as needed. Currently with IV steroids of Solu-Medrol 40 mg IV every 12 hours. Patient will likely need tracheostomy per pulmonary recommendations. 06/18/2020. Patient currently on mechanical ventilation with AC mode rate 30, tidal volume 500, FiO2 70% and PEEP of 16. Continue Lovenox for anticoagulation and fentanyl/Versed for sedation. Wean steroids per pulmonary. CIWA protocol initiated for history of EtOH dependence 06/19/2020. Patient currently on mechanical ventilation with AC mode rate 30, tidal volume 500, FiO2 60% and PEEP of 16. Wean FiO2 as tolerated per protocol. Continue Lovenox for anticoagulation and fentanyl/Versed for sedation. Wean steroids per pulmonary. CIWA protocol initiated for history of EtOH dependence 06/20/2020. Patient currently on mechanical ventilation with AC mode rate 30, tidal volume 500, FiO2 60% and PEEP of 16. Wean FiO2 as tolerated, SBT per protocol. Continue Lovenox for anticoagulation and fentanyl/Versed for sedation. Wean steroids per pulmonary. Continue pressors to maintain MAP > 65 mmHg. Patient remains on ETT. Consider tracheostomy placement once oxygenation is better per pulmonary. CIWA protocol initiated for history of EtOH dependence. 06/21/2020. Patient with a small apical pneumothorax discovered yesterday. General surgery consulted and consider placing chest tube. Follow-up serial chest x-ray patient currently on mechanical ventilation with AC mode rate 30, tidal volume 500, FiO2 60% and PEEP of 16. Wean FiO2 as tolerated, SBT per protocol. Continue Lovenox for anticoagulation and fentanyl/Versed for sedation. Wean steroids per pulmonary. Continue pressors to maintain MAP > 65 mmHg. Patient remains on ETT. Consider tracheostomy placement once oxygenation is better per pulmonary. CIWA protocol initiated for history of EtOH dependence. 06/22. Status post right chest tube placement yesterday. Remains mechanically ventilated on pressors. Examination today shows slightly distended abdomen. KUB ordered. Awaiting stool guaiac. Plan to get a GI evaluation. 06/23. Has colonic distention on the x-ray. Discussed with GI-advised stool softeners for now and close monitoring. No indication for colonic decompression at this time. Guaiac test is positive. No emergent indication for endoscopy at this point as per GI. Continue to monitor hemoglobin. 06/24. Remains intubated. On pressors. GI following for positive guaiac stool and anemia, and colonic distention. 06/25. Repeat abdominal xray ordered. Remains on mechanical ventilation. 06/26. Abdominal xray - resolved colonic distension. Mechanically ventilated. 06/27. Plan for trach and PEG. 06/28: Awaiting trach and Peg. Some Bm REPORTED, will continue to monitor 06/29: Resume care, patient remains on ventilator support, waiting on trach and PEG placement. BM reported by the RN, continue to monitor. Subjective Date of service: 06/29/20 Principal diagnosis: Distended Bowel Interval history: Patient seen and examined Patient remains on mechanical ventilation Chest tube in place Tolerating tube feeding Objective - Exam Narrative Exam: General appearance: Present: no distress, obese, intubated - EENT Eyes: Present: PERRL ENT: Et tube in place - Neck Neck: Present: supple, - Respiratory Respiratory effort: on mechanical ventilation Respiratory: bilateral: diminished, rhonchi, CT tube in place - Cardiovascular Heart Sounds: Present: S1 & S2. Absent: rub, click - Extremities Extremities: pulses symmetrical, No edema Peripheral Pulses: within normal limits - Abdominal General gastrointestinal: Present: soft, non-tender, mild distended, normal bowel sounds Male genitourinary: Present: normal - Integumentary Integumentary: Present: clear, warm, dry - Musculoskeletal Musculoskeletal: generalized weakness - Psychiatric Psychiatric: Unable to assess - Neurologic Neurologic: Intubated - Constitutional Vitals: Vital Signs - 12hr 06/28/20 06/28/20 06/28/20 20:45 21:00 21:15 Temperature Pulse Rate 119 H 123 H 118 H Pulse Rate [ From Monitor] Respiratory 24 30 H 27 H Rate Respiratory Rate [ Generalized] Blood Pressure 129/77 126/73 126/66 O2 Sat by Pulse 98 92 89 Oximetry 06/28/20 06/28/20 06/28/20 21:30 21:45 22:00 Temperature Pulse Rate 122 H 123 H 119 H Pulse Rate [ From Monitor] Respiratory 33 H 25 H 28 H Rate Respiratory 30 H Rate [ Generalized] Blood Pressure 129/74 111/59 111/59 O2 Sat by Pulse 92 89 93 Oximetry 06/28/20 06/28/20 06/28/20 22:15 22:30 22:45 Temperature Pulse Rate 120 H 116 H 111 H Pulse Rate [ From Monitor] Respiratory 24 21 30 H Rate Respiratory Rate [ Generalized] Blood Pressure 91/60 79/46 82/48 O2 Sat by Pulse 91 91 92 Oximetry 06/28/20 06/28/20 06/28/20 23:00 23:15 23:24 Temperature Pulse Rate 108 H 103 H 101 H Pulse Rate [ From Monitor] Respiratory 30 H 30 H 30 H Rate Respiratory Rate [ Generalized] Blood Pressure 80/47 80/47 80/47 O2 Sat by Pulse 95 97 Oximetry 06/28/20 06/28/20 06/28/20 23:30 23:45 23:51 Temperature Pulse Rate 99 H 95 H 102 H Pulse Rate [ From Monitor] Respiratory 30 H 30 H Rate Respiratory Rate [ Generalized] Blood Pressure 83/49 93/54 80/47 O2 Sat by Pulse 93 96 96 Oximetry 06/29/20 06/29/20 06/29/20 00:00 00:15 00:30 Temperature 97.6 F Pulse Rate 92 H 91 H 91 H Pulse Rate [ 92 H From Monitor] Respiratory 30 H 30 H 30 H Rate Respiratory Rate [ Generalized] Blood Pressure 92/56 99/61 96/55 O2 Sat by Pulse 95 96 95 Oximetry 06/29/20 06/29/20 06/29/20 00:45 01:00 01:15 Temperature Pulse Rate 90 91 H 89 Pulse Rate [ From Monitor] Respiratory 30 H 30 H 30 H Rate Respiratory Rate [ Generalized] Blood Pressure 104/61 100/55 98/57 O2 Sat by Pulse 93 93 95 Oximetry 06/29/20 06/29/20 06/29/20 01:30 01:45 02:00 Temperature Pulse Rate 93 H 100 H 100 H Pulse Rate [ From Monitor] Respiratory 20 30 H 30 H Rate Respiratory Rate [ Generalized] Blood Pressure 115/76 120/68 111/63 O2 Sat by Pulse 100 97 99 Oximetry 06/29/20 06/29/20 06/29/20 02:15 02:30 02:45 Temperature Pulse Rate 101 H 99 H 102 H Pulse Rate [ From Monitor] Respiratory 30 H 18 22 Rate Respiratory Rate [ Generalized] Blood Pressure 104/64 96/72 114/73 O2 Sat by Pulse 95 96 94 Oximetry 06/29/20 06/29/20 06/29/20 03:00 03:15 03:17 Temperature Pulse Rate 101 H 101 H 99 H Pulse Rate [ From Monitor] Respiratory 17 17 Rate Respiratory Rate [ Generalized] Blood Pressure 117/68 118/67 118/67 O2 Sat by Pulse 96 95 95 Oximetry 06/29/20 06/29/20 06/29/20 03:30 03:46 03:58 Temperature 98.3 F Pulse Rate 97 H 112 H Pulse Rate [ From Monitor] Respiratory 20 20 Rate Respiratory Rate [ Generalized] Blood Pressure 111/74 105/84 O2 Sat by Pulse 97 93 Oximetry 06/29/20 06/29/20 06/29/20 04:00 04:15 04:30 Temperature Pulse Rate 98 H 95 H 102 H Pulse Rate [ 101 H From Monitor] Respiratory 20 16 16 Rate Respiratory Rate [ Generalized] Blood Pressure 105/84 133/80 138/81 O2 Sat by Pulse 97 98 98 Oximetry 06/29/20 06/29/20 06/29/20 04:45 05:00 05:15 Temperature Pulse Rate 100 H 101 H 109 H Pulse Rate [ From Monitor] Respiratory 18 19 30 H Rate Respiratory Rate [ Generalized] Blood Pressure 133/73 136/78 128/77 O2 Sat by Pulse 97 97 96 Oximetry 06/29/20 06/29/20 06/29/20 05:30 05:45 06:00 Temperature Pulse Rate 119 H 112 H 110 H Pulse Rate [ From Monitor] Respiratory 28 H 30 H 28 H Rate Respiratory Rate [ Generalized] Blood Pressure 126/84 111/81 126/78 O2 Sat by Pulse 96 91 94 Oximetry 06/29/20 06/29/20 08:00 08:18 Temperature 99.0 F Pulse Rate 114 H Pulse Rate [ From Monitor] Respiratory Rate Respiratory Rate [ Generalized] Blood Pressure 141/85 O2 Sat by Pulse 97 Oximetry - Labs CBC & Chem 7: 07/02/20 16:08 07/02/20 16:08 Labs: Abnormal lab results 06/28/20 06/28/20 06/28/20 Range/Units 06:35 11:36 16:53 WBC (4.5-11.0) K/mm3 RBC (3.65-5.03) M/mm3 Hgb (11.8-15.2) gm/dl Hct (35.5-45.6) % MCV (84-94) fl MCH (28-32) pg MCHC (32-34) % RDW (13.2-15.2) % Lymph % (Auto) (13.4-35.0) % [place] # (Auto) (0.0-0.8) K/mm3 Baso # (Auto) (0.0-0.1) K/mm3 Seg Neutrophils % (40.0-70.0) % Seg Neuts % (Manual) 95.0 H (40.0-70.0) % Lymphocytes % (Manual) 1.0 L (13.4-35.0) % Seg Neutrophils # (1.8-7.7) K/mm3 Seg Neutrophils # Man 18.0 H (1.8-7.7) K/mm3 Lymphocytes # (Manual) 0.2 L (1.2-5.4) K/mm3 Sodium (137-145) mmol/L Potassium (3.6-5.0) mmol/L Chloride (98-107) mmol/L Carbon Dioxide (22-30) mmol/L Creatinine (0.8-1.3) mg/dL Glucose (75-100) mg/dL POC Glucose 243 H 211 H (70-105) mg/dL AST (5-40) units/L ALT (7-56) units/L Total Protein (6.3-8.2) g/dL Albumin (3.9-5) g/dL Triglycerides (2-149) mg/dL 06/28/20 06/29/20 06/29/20 Range/Units 21:10 00:06 04:00 WBC 18.8 H (4.5-11.0) K/mm3 RBC 2.82 L (3.65-5.03) M/mm3 Hgb 10.1 L (11.8-15.2) gm/dl Hct 28.5 L (35.5-45.6) % MCV 101 H (84-94) fl MCH 36 H (28-32) pg MCHC 36 H (32-34) % RDW 17.5 H (13.2-15.2) % Lymph % (Auto) 10.7 L (13.4-35.0) % [place] # (Auto) 1.0 H (0.0-0.8) K/mm3 Baso # (Auto) 0.3 H (0.0-0.1) K/mm3 Seg Neutrophils % 82.2 H (40.0-70.0) % Seg Neuts % (Manual) (40.0-70.0) % Lymphocytes % (Manual) (13.4-35.0) % Seg Neutrophils # 15.5 H (1.8-7.7) K/mm3 Seg Neutrophils # Man (1.8-7.7) K/mm3 Lymphocytes # (Manual) (1.2-5.4) K/mm3 Sodium (137-145) mmol/L Potassium (3.6-5.0) mmol/L Chloride (98-107) mmol/L Carbon Dioxide (22-30) mmol/L Creatinine (0.8-1.3) mg/dL Glucose (75-100) mg/dL POC Glucose 195 H 200 H (70-105) mg/dL AST (5-40) units/L ALT (7-56) units/L Total Protein (6.3-8.2) g/dL Albumin (3.9-5) g/dL Triglycerides (2-149) mg/dL 06/29/20 06/29/20 06/29/20 Range/Units 04:00 05:00 05:23 WBC (4.5-11.0) K/mm3 RBC (3.65-5.03) M/mm3 Hgb (11.8-15.2) gm/dl Hct (35.5-45.6) % MCV (84-94) fl MCH (28-32) pg MCHC (32-34) % RDW (13.2-15.2) % Lymph % (Auto) (13.4-35.0) % [place] # (Auto) (0.0-0.8) K/mm3 Baso # (Auto) (0.0-0.1) K/mm3 Seg Neutrophils % (40.0-70.0) % Seg Neuts % (Manual) (40.0-70.0) % Lymphocytes % (Manual) (13.4-35.0) % Seg Neutrophils # (1.8-7.7) K/mm3 Seg Neutrophils # Man (1.8-7.7) K/mm3 Lymphocytes # (Manual) (1.2-5.4) K/mm3 Sodium 134 L (137-145) mmol/L Potassium 3.3 L (3.6-5.0) mmol/L Chloride 89.5 L (98-107) mmol/L Carbon Dioxide 40 H (22-30) mmol/L Creatinine 0.2 L (0.8-1.3) mg/dL Glucose 190 H (75-100) mg/dL POC Glucose 165 H (70-105) mg/dL AST < 5 L (5-40) units/L ALT < 5 L (7-56) units/L Total Protein 5.9 L (6.3-8.2) g/dL Albumin 2.2 L (3.9-5) g/dL Triglycerides 1544 H (2-149) mg/dL
[2020-06-29] MEDS: NORepinephrine/NS 4 MG-250 ML 4 MG/250 ML BAG IV SCH ×2 (09:19→20:44)
[2020-06-29] MEDS: SENNOSIDES 8.6 MG TAB PO SCH ×2 (09:20→21:43)
[2020-06-29] MEDS: DOCUSATE SODIUM 100 MG/10 ML ORAL LIQD PO SCH ×2 (09:20→21:42)
[2020-06-29] MEDS: FOLIC ACID 1 MG TAB PO SCH (09:20)
[2020-06-29] MEDS: LANSOPRAZOLE 30 MG SOLUTAB FEEDTUBE SCH (09:20)
[2020-06-29] MEDS: QUEtiapine 100 MG TAB PO SCH ×3 (09:20→20:22)
[2020-06-29] MEDS ORDERED: POTASSIUM CHLORIDE 20 MEQ PACKET FEEDTUBE ONE (10:00)
--- NOTE | 2020-06-29 12:51 | Progress Note ---
Assessment and Plan Acute hypoxemic respiratory failure due to COVID-19 Severe Sepsis Bilateral pneumonia Acute kidney injury (SEN) with acute tubular necrosis (ATN) Alcohol dependence Elevated liver function tests - increase Seroquel to 300 mg po tid - begin Precedex - stop propofol re: hypertriglyceridemia - get lipase level - get 12 lead EKG to monitor QT - begin midodrine re: hypotension - keep peep at 8 - continue bid protonix - continue full anticoagulation for now and trend H&H - continue care as below otherwise; - continue bowel regimen - continue to wean supplemental oxygen for target O2 sat's > 92% acutely - continue to wean Levophed for target MAP > 65 mmHg - tracheostomy placement once oxygenation better / more hemodynamically stable - he will need a tracheostomy once numbers better - continue Daily SAT and SBT assessment as tolerated - VAP bundle addressed - continue lung protective strategies - continue bronchodilators with pulmonary hygiene per RT - wean per pulmonary driven protocols otherwise - accuchecks with glycemic control per SSI (While critically ill target blood glucose of 140-180 mg/dL; avoid hypoglycemia) - sedation prn for target RASS -1 to -2 - continue enteral nutritional support at goal rate as tolerated - continue airborne and contact isolation - follow repeat COVID-19 testing - continue Zinc & Vit C supplementaion - continue systemic steroids for Asthma / severe COVID infection - Prone positioning as tolerated - continue empiric full dose anticoagulation re: elevated d-dimers / hyper coagulable state - NOT a candidate for COVID convalescent plasma - continue systemic steroids X >/= 10 days - completed remdesivir dosing (total 5 days) - empiric AB's coverage per ID rec's - accuchecks with glycemic control per SSI (While critically ill target blood glucose of 140-180 mg/dL; avoid hypoglycemia) - avoid nephrotoxins, renally dose all medications - continue to avoid benzodiazepine's, reduce the possibility of delirium - continue wound care per RN / WCN - prn analgesia per CPOT score - Maintenance of sleep-wake cycle, avoid delirium - continue to avoid benzodiazepine's, reduce the possibility of delirium - aspiration precautions - G.I. & VTE prophylaxis - PT/OT/ROM exercises - continue mobility protocols for pressure ulcer prophylaxis - Monitor hemodynamics closely - continue other care per attending / other consultants - discharge planning ongoing concurrently .... Re-evaluate in am & prn CONDITION: CRITICAL PROGNOSIS: GUARDED CODE STATUS: FULL CODE The high probability of a clinically significant, sudden or life-threatening deterioration of the [respiratory, cardiovascular, hematologic & neurologic] system(s) required my full and direct attention, intervention and personal management. The aggregate critical care time was [36] minutes without overlap. Time includes spent on; [x] Data Review and interpretation [x] Patient assessment and monitoring of vital signs [x] Documentation [x] Medication orders and management Subjective Date of service: 06/29/20 Principal diagnosis: Ac hypoxemic resp failure; COVID-19; Severe Sepsis; Shaggy PNA; Alcohol Abuse Interval history: Patient is seen today for: Acute hypoxemic respiratory failure due to COVID-19; Severe Sepsis; Bilateral pneumonia; Alcohol dependence; Elevated liver function tests Seen and examined at bedside; 24hour events reviewed; nursing and respiratory care staff consulted; no adverse overnight events reported to me; resting in bed; remains on MVS; FiO2 down to 45% with peep down to 8 but still severe desaturation's with agitation during SAT Objective Vital Signs - 12hr 06/29/20 06/29/20 06/29/20 01:00 01:15 01:30 Temperature Pulse Rate 91 H 89 93 H Pulse Rate [ From Monitor] Respiratory 30 H 30 H 20 Rate Blood Pressure 100/55 98/57 115/76 O2 Sat by Pulse 93 95 100 Oximetry 06/29/20 06/29/20 06/29/20 01:45 02:00 02:15 Temperature Pulse Rate 100 H 100 H 101 H Pulse Rate [ From Monitor] Respiratory 30 H 30 H 30 H Rate Blood Pressure 120/68 111/63 104/64 O2 Sat by Pulse 97 99 95 Oximetry 06/29/20 06/29/20 06/29/20 02:30 02:45 03:00 Temperature Pulse Rate 99 H 102 H 101 H Pulse Rate [ From Monitor] Respiratory 18 22 17 Rate Blood Pressure 96/72 114/73 117/68 O2 Sat by Pulse 96 94 96 Oximetry 06/29/20 06/29/20 06/29/20 03:15 03:17 03:30 Temperature Pulse Rate 101 H 99 H 97 H Pulse Rate [ From Monitor] Respiratory 17 20 Rate Blood Pressure 118/67 118/67 111/74 O2 Sat by Pulse 95 95 97 Oximetry 06/29/20 06/29/20 06/29/20 03:46 03:58 04:00 Temperature 98.3 F Pulse Rate 112 H 98 H Pulse Rate [ 101 H From Monitor] Respiratory 20 20 Rate Blood Pressure 105/84 105/84 O2 Sat by Pulse 93 97 Oximetry 06/29/20 06/29/20 06/29/20 04:15 04:30 04:45 Temperature Pulse Rate 95 H 102 H 100 H Pulse Rate [ From Monitor] Respiratory 16 16 18 Rate Blood Pressure 133/80 138/81 133/73 O2 Sat by Pulse 98 98 97 Oximetry 06/29/20 06/29/20 06/29/20 05:00 05:15 05:30 Temperature Pulse Rate 101 H 109 H 119 H Pulse Rate [ From Monitor] Respiratory 19 30 H 28 H Rate Blood Pressure 136/78 128/77 126/84 O2 Sat by Pulse 97 96 96 Oximetry 06/29/20 06/29/20 06/29/20 05:45 06:00 08:00 Temperature 99.0 F Pulse Rate 112 H 110 H Pulse Rate [ From Monitor] Respiratory 30 H 28 H Rate Blood Pressure 111/81 126/78 O2 Sat by Pulse 91 94 Oximetry 06/29/20 06/29/20 08:18 11:27 Temperature Pulse Rate 114 H 111 H Pulse Rate [ From Monitor] Respiratory Rate Blood Pressure 141/85 96/57 O2 Sat by Pulse 97 95 Oximetry Constitutional: appears uncomfortable, other (middle aged obese male with mildly increased respiratory effort at rest on MVS) Eyes: non-icteric ENT: oropharynx moist, other (ETT 24 cm CHILO) Neck: supple, no JVD Effort: mildly labored Ascultation: Bilateral: diminished breath sounds, rhonchi (scant) Percussion: Bilateral: not dull Cardiovascular: regular rate and rhythm, other (No R/M) Gastrointestinal: normoactive bowel sounds, soft, non-tender, other (distended and firm) Integumentary: normal Extremities: no cyanosis, no edema, pulses normal, no ischemia or petechiae Neurologic: pupils equal and round, CN II-XII normal, other (unable top assess re: AMS) Psychiatric: other (sedated) CBC and BMP: 06/30/20 07:00 06/30/20 07:00 ABG, PT/INR, D-dimer: ABG ABG pH 7.421 (7.320-7.450) 06/29/20 03:11 POC ABG pCO2 57.5 mmHg (32.0-48.0) H 06/29/20 03:11 ABG pCO2 69.8 mm Hg 06/22/20 03:50 POC ABG pO2 69.1 mmHg (83-108) L 06/29/20 03:11 ABG pO2 89.6 mm Hg (80.0-90.0) 06/22/20 03:50 POC ABG HCO3 36.5 06/29/20 03:11 ABG O2 Saturation 97.1 % (95.0-99.0) 06/22/20 03:50 PT/INR, D-dimer PT 11.8 Sec. (12.2-14.9) L 06/22/20 14:29 INR 0.88 (0.87-1.13) 06/22/20 14:29 D-Dimer 1887.82 ng/mlDDU (0-234) H 05/20/20 08:16 Abnormal lab findings: Abnormal Labs 05/09/20 05/09/20 05/09/20 12:59 12:59 12:59 WBC 11.8 H RBC Hgb Hct MCV 96 H MCH 34 H MCHC 35 H RDW Lymph % (Auto) 6.9 L Lymph # (Auto) 0.8 L Butts # (Auto) Baso # (Auto) Seg Neutrophils % 87.5 H Seg Neuts % (Manual) Lymphocytes % (Manual) Nucleated RBC % Seg Neutrophils # 10.3 H Seg Neutrophils # Man Lymphocytes # (Manual) Monocytes # (Manual) PT INR APTT D-Dimer ABG pH POC ABG pCO2 POC ABG pO2 ABG pO2 ABG HCO3 ABG O2 Saturation ABG Base Excess ABG Hemoglobin ABG Oxyhemoglobin ABG Sodium ABG Potassium ABG Chloride ABG Glucose Oxyhemoglobin Sodium 130 L Potassium 3.5 L Chloride 86.4 L Carbon Dioxide BUN 33 H Creatinine 2.3 H Glucose 156 H POC Glucose Lactic Acid Calcium Magnesium Ferritin Total Bilirubin 3.40 H Direct Bilirubin 1.7 H AST 385 H ALT 134 H Alkaline Phosphatase Lactate Dehydrogenase C-Reactive Protein Total Protein Albumin 3.0 L Triglycerides Arterial Blood Glucose Arterial Blood Ionized Calcium Urine WBC (Auto) Coronavirus (PCR) SARS-CoV-2 IgG Ab Crossmatch 05/09/20 05/09/20 05/09/20 12:59 12:59 12:59 WBC RBC Hgb Hct MCV MCH MCHC RDW Lymph % (Auto) Lymph # (Auto) Butts # (Auto) Baso # (Auto) Seg Neutrophils % Seg Neuts % (Manual) Lymphocytes % (Manual) Nucleated RBC % Seg Neutrophils # Seg Neutrophils # Man Lymphocytes # (Manual) Monocytes # (Manual) PT INR APTT D-Dimer 3242.51 H ABG pH POC ABG pCO2 POC ABG pO2 ABG pO2 ABG HCO3 ABG O2 Saturation ABG Base Excess ABG Hemoglobin ABG Oxyhemoglobin ABG Sodium ABG Potassium ABG Chloride ABG Glucose Oxyhemoglobin Sodium Potassium Chloride Carbon Dioxide BUN Creatinine Glucose 158 H POC Glucose Lactic Acid 3.50 H* Calcium Magnesium Ferritin Total Bilirubin Direct Bilirubin AST ALT Alkaline Phosphatase Lactate Dehydrogenase 2166 H C-Reactive Protein 39.00 H Total Protein Albumin Triglycerides Arterial Blood Glucose Arterial Blood Ionized Calcium Urine WBC (Auto) Coronavirus (PCR) SARS-CoV-2 IgG Ab Crossmatch 05/09/20 05/09/20 05/09/20 12:59 14:20 14:20 WBC RBC Hgb Hct MCV MCH MCHC RDW Lymph % (Auto) Lymph # (Auto) Butts # (Auto) Baso # (Auto) Seg Neutrophils % Seg Neuts % (Manual) Lymphocytes % (Manual) Nucleated RBC % Seg Neutrophils # Seg Neutrophils # Man Lymphocytes # (Manual) Monocytes # (Manual) PT INR APTT D-Dimer 2861.78 H ABG pH POC ABG pCO2 POC ABG pO2 ABG pO2 ABG HCO3 ABG O2 Saturation ABG Base Excess ABG Hemoglobin ABG Oxyhemoglobin ABG Sodium ABG Potassium ABG Chloride ABG Glucose Oxyhemoglobin Sodium Potassium Chloride Carbon Dioxide BUN Creatinine Glucose POC Glucose Lactic Acid 2.20 H* Calcium Magnesium Ferritin 68777.0 H Total Bilirubin Direct Bilirubin AST ALT Alkaline Phosphatase Lactate Dehydrogenase C-Reactive Protein Total Protein Albumin Triglycerides Arterial Blood Glucose Arterial Blood Ionized Calcium Urine WBC (Auto) Coronavirus (PCR) SARS-CoV-2 IgG Ab Crossmatch 05/09/20 05/09/20 05/09/20 14:20 14:20 15:56 WBC RBC Hgb Hct MCV MCH MCHC RDW Lymph % (Auto) Lymph # (Auto) Butts # (Auto) Baso # (Auto) Seg Neutrophils % Seg Neuts % (Manual) Lymphocytes % (Manual) Nucleated RBC % Seg Neutrophils # Seg Neutrophils # Man Lymphocytes # (Manual) Monocytes # (Manual) PT INR APTT D-Dimer ABG pH POC ABG pCO2 POC ABG pO2 57.3 L ABG pO2 ABG HCO3 ABG O2 Saturation ABG Base Excess ABG Hemoglobin ABG Oxyhemoglobin 86.3 L ABG Sodium 129.9 L ABG Potassium ABG Chloride ABG Glucose 146 H Oxyhemoglobin Sodium Potassium Chloride Carbon Dioxide BUN Creatinine Glucose 143 H POC Glucose Lactic Acid Calcium Magnesium Ferritin 11347.0 H Total Bilirubin Direct Bilirubin AST ALT Alkaline Phosphatase Lactate Dehydrogenase 1953 H C-Reactive Protein 33.50 H Total Protein Albumin Triglycerides Arterial Blood Glucose 146 H Arterial Blood Ionized Calcium 3.9 L Urine WBC (Auto) Coronavirus (PCR) SARS-CoV-2 IgG Ab Crossmatch 05/10/20 05/10/20 05/10/20 10:32 10:32 18:50 WBC 15.4 H RBC Hgb Hct MCV 97 H MCH 33 H MCHC RDW 13.1 L Lymph % (Auto) Lymph # (Auto) Butts # (Auto) Baso # (Auto) Seg Neutrophils % Seg Neuts % (Manual) 89.0 H Lymphocytes % (Manual) 8.0 L Nucleated RBC % Seg Neutrophils # Seg Neutrophils # Man 13.7 H Lymphocytes # (Manual) Monocytes # (Manual) PT INR APTT D-Dimer ABG pH POC ABG pCO2 POC ABG pO2 ABG pO2 ABG HCO3 ABG O2 Saturation ABG Base Excess ABG Hemoglobin ABG Oxyhemoglobin ABG Sodium ABG Potassium ABG Chloride ABG Glucose Oxyhemoglobin Sodium 136 L Potassium Chloride 97.4 L Carbon Dioxide BUN 37 H Creatinine 1.7 H Glucose 209 H POC Glucose Lactic Acid Calcium Magnesium Ferritin > 2000.0 H Total Bilirubin Direct Bilirubin AST ALT Alkaline Phosphatase Lactate Dehydrogenase C-Reactive Protein Total Protein Albumin Triglycerides Arterial Blood Glucose Arterial Blood Ionized Calcium Urine WBC (Auto) Coronavirus (PCR) SARS-CoV-2 IgG Ab Crossmatch 05/10/20 05/10/20 05/10/20 18:50 19:00 Unknown WBC RBC Hgb Hct MCV MCH MCHC RDW Lymph % (Auto) Lymph # (Auto) Butts # (Auto) Baso # (Auto) Seg Neutrophils % Seg Neuts % (Manual) Lymphocytes % (Manual) Nucleated RBC % Seg Neutrophils # Seg Neutrophils # Man Lymphocytes # (Manual) Monocytes # (Manual) PT INR APTT D-Dimer > 73225 H ABG pH POC ABG pCO2 POC ABG pO2 ABG pO2 ABG HCO3 ABG O2 Saturation ABG Base Excess ABG Hemoglobin ABG Oxyhemoglobin ABG Sodium ABG Potassium ABG Chloride ABG Glucose Oxyhemoglobin Sodium Potassium Chloride Carbon Dioxide BUN Creatinine Glucose POC Glucose Lactic Acid Calcium Magnesium Ferritin Total Bilirubin Direct Bilirubin AST ALT Alkaline Phosphatase Lactate Dehydrogenase 1879 H C-Reactive Protein 24.80 H Total Protein Albumin Triglycerides Arterial Blood Glucose Arterial Blood Ionized Calcium Urine WBC (Auto) 11.0 H Coronavirus (PCR) SARS-CoV-2 IgG Ab Crossmatch 05/10/20 05/11/20 05/11/20 Unknown 07:30 07:30 WBC RBC Hgb Hct MCV MCH MCHC RDW Lymph % (Auto) Lymph # (Auto) Butts # (Auto) Baso # (Auto) Seg Neutrophils % Seg Neuts % (Manual) Lymphocytes % (Manual) Nucleated RBC % Seg Neutrophils # Seg Neutrophils # Man Lymphocytes # (Manual) Monocytes # (Manual) PT INR APTT D-Dimer > 2000 H ABG pH POC ABG pCO2 POC ABG pO2 ABG pO2 ABG HCO3 ABG O2 Saturation ABG Base Excess ABG Hemoglobin ABG Oxyhemoglobin ABG Sodium ABG Potassium ABG Chloride ABG Glucose Oxyhemoglobin Sodium Potassium Chloride 96.3 L Carbon Dioxide BUN 36 H Creatinine Glucose 161 H POC Glucose Lactic Acid Calcium 8.3 L Magnesium Ferritin Total Bilirubin 1.50 H Direct Bilirubin 0.6 H AST 178 H ALT 111 H Alkaline Phosphatase Lactate Dehydrogenase C-Reactive Protein Total Protein Albumin 3.0 L Triglycerides Arterial Blood Glucose Arterial Blood Ionized Calcium Urine WBC (Auto) Coronavirus (PCR) Positive A SARS-CoV-2 IgG Ab Crossmatch 05/11/20 05/11/20 05/11/20 07:30 07:30 07:30 WBC RBC Hgb Hct MCV MCH MCHC RDW Lymph % (Auto) Lymph # (Auto) Butts # (Auto) Baso # (Auto) Seg Neutrophils % Seg Neuts % (Manual) Lymphocytes % (Manual) Nucleated RBC % Seg Neutrophils # Seg Neutrophils # Man Lymphocytes # (Manual) Monocytes # (Manual) PT INR APTT D-Dimer ABG pH POC ABG pCO2 POC ABG pO2 ABG pO2 ABG HCO3 ABG O2 Saturation ABG Base Excess ABG Hemoglobin ABG Oxyhemoglobin ABG Sodium ABG Potassium ABG Chloride ABG Glucose Oxyhemoglobin Sodium Potassium Chloride Carbon Dioxide BUN Creatinine Glucose POC Glucose Lactic Acid Calcium Magnesium Ferritin 72850.0 H Total Bilirubin Direct Bilirubin AST ALT Alkaline Phosphatase Lactate Dehydrogenase 1523 H C-Reactive Protein 12.90 H Total Protein Albumin Triglycerides Arterial Blood Glucose Arterial Blood Ionized Calcium Urine WBC (Auto) Coronavirus (PCR) SARS-CoV-2 IgG Ab Reactive A Crossmatch 05/13/20 05/13/20 05/15/20 05:20 05:20 08:15 WBC RBC Hgb Hct MCV MCH MCHC RDW Lymph % (Auto) Lymph # (Auto) Butts # (Auto) Baso # (Auto) Seg Neutrophils % Seg Neuts % (Manual) Lymphocytes % (Manual) Nucleated RBC % Seg Neutrophils # Seg Neutrophils # Man Lymphocytes # (Manual) Monocytes # (Manual) PT INR APTT D-Dimer > 36403 H 5318.28 H ABG pH POC ABG pCO2 POC ABG pO2 ABG pO2 ABG HCO3 ABG O2 Saturation ABG Base Excess ABG Hemoglobin ABG Oxyhemoglobin ABG Sodium ABG Potassium ABG Chloride ABG Glucose Oxyhemoglobin Sodium Potassium Chloride Carbon Dioxide 32 H BUN 30 H Creatinine Glucose 156 H POC Glucose Lactic Acid Calcium Magnesium 2.60 H Ferritin Total Bilirubin 1.40 H Direct Bilirubin AST 121 H ALT 119 H Alkaline Phosphatase Lactate Dehydrogenase 957 H C-Reactive Protein 4.00 H Total Protein Albumin 3.0 L Triglycerides Arterial Blood Glucose Arterial Blood Ionized Calcium Urine WBC (Auto) Coronavirus (PCR) SARS-CoV-2 IgG Ab Crossmatch 05/15/20 05/15/20 05/15/20 08:15 08:15 08:15 WBC 12.4 H RBC Hgb Hct MCV 98 H MCH 33 H MCHC RDW Lymph % (Auto) 9.7 L Lymph # (Auto) Butts # (Auto) Baso # (Auto) Seg Neutrophils % 86.8 H Seg Neuts % (Manual) Lymphocytes % (Manual) Nucleated RBC % Seg Neutrophils # 10.8 H Seg Neutrophils # Man Lymphocytes # (Manual) Monocytes # (Manual) PT INR APTT D-Dimer ABG pH POC ABG pCO2 POC ABG pO2 ABG pO2 ABG HCO3 ABG O2 Saturation ABG Base Excess ABG Hemoglobin ABG Oxyhemoglobin ABG Sodium ABG Potassium ABG Chloride ABG Glucose Oxyhemoglobin Sodium Potassium Chloride 94.8 L Carbon Dioxide 32 H BUN 22 H Creatinine Glucose 115 H POC Glucose Lactic Acid Calcium 8.3 L Magnesium Ferritin 2494.0 H Total Bilirubin Direct Bilirubin AST 73 H ALT 121 H Alkaline Phosphatase Lactate Dehydrogenase 835 H C-Reactive Protein 3.40 H Total Protein 6.1 L Albumin 3.0 L Triglycerides Arterial Blood Glucose Arterial Blood Ionized Calcium Urine WBC (Auto) Coronavirus (PCR) SARS-CoV-2 IgG Ab Crossmatch 05/17/20 05/17/20 05/17/20 05:50 05:50 05:50 WBC RBC Hgb Hct MCV MCH MCHC RDW Lymph % (Auto) Lymph # (Auto) Butts # (Auto) Baso # (Auto) Seg Neutrophils % Seg Neuts % (Manual) Lymphocytes % (Manual) Nucleated RBC % Seg Neutrophils # Seg Neutrophils # Man Lymphocytes # (Manual) Monocytes # (Manual) PT INR APTT D-Dimer 2911.42 H ABG pH POC ABG pCO2 POC ABG pO2 ABG pO2 ABG HCO3 ABG O2 Saturation ABG Base Excess ABG Hemoglobin ABG Oxyhemoglobin ABG Sodium ABG Potassium ABG Chloride ABG Glucose Oxyhemoglobin Sodium 136 L Potassium Chloride 96.0 L Carbon Dioxide 34 H BUN 22 H Creatinine Glucose 140 H POC Glucose Lactic Acid Calcium Magnesium Ferritin 2082.0 H Total Bilirubin Direct Bilirubin AST ALT 75 H Alkaline Phosphatase Lactate Dehydrogenase 601 H C-Reactive Protein 2.70 H Total Protein Albumin 2.9 L Triglycerides Arterial Blood Glucose Arterial Blood Ionized Calcium Urine WBC (Auto) Coronavirus (PCR) SARS-CoV-2 IgG Ab Crossmatch 05/17/20 05/18/20 05/20/20 05:50 12:22 08:16 WBC RBC Hgb Hct MCV 98 H MCH 33 H MCHC RDW Lymph % (Auto) 8.0 L Lymph # (Auto) 0.8 L Butts # (Auto) Baso # (Auto) Seg Neutrophils % 89.3 H Seg Neuts % (Manual) Lymphocytes % (Manual) Nucleated RBC % Seg Neutrophils # 8.8 H Seg Neutrophils # Man Lymphocytes # (Manual) Monocytes # (Manual) PT INR APTT D-Dimer 1887.82 H ABG pH POC ABG pCO2 POC ABG pO2 ABG pO2 ABG HCO3 ABG O2 Saturation ABG Base Excess ABG Hemoglobin ABG Oxyhemoglobin ABG Sodium ABG Potassium ABG Chloride ABG Glucose Oxyhemoglobin Sodium Potassium Chloride Carbon Dioxide BUN Creatinine Glucose POC Glucose 178 H Lactic Acid Calcium Magnesium Ferritin Total Bilirubin Direct Bilirubin AST ALT Alkaline Phosphatase Lactate Dehydrogenase C-Reactive Protein Total Protein Albumin Triglycerides Arterial Blood Glucose Arterial Blood Ionized Calcium Urine WBC (Auto) Coronavirus (PCR) SARS-CoV-2 IgG Ab Crossmatch 05/20/20 05/20/20 05/21/20 08:16 08:16 21:10 WBC RBC Hgb Hct MCV MCH MCHC RDW Lymph % (Auto) Lymph # (Auto) Butts # (Auto) Baso # (Auto) Seg Neutrophils % Seg Neuts % (Manual) Lymphocytes % (Manual) Nucleated RBC % Seg Neutrophils # Seg Neutrophils # Man Lymphocytes # (Manual) Monocytes # (Manual) PT INR APTT D-Dimer ABG pH 7.483 H POC ABG pCO2 POC ABG pO2 ABG pO2 50.0 L ABG HCO3 27.0 H ABG O2 Saturation 86.2 L ABG Base Excess 3.7 H ABG Hemoglobin ABG Oxyhemoglobin ABG Sodium ABG Potassium ABG Chloride ABG Glucose Oxyhemoglobin 84.2 L Sodium Potassium Chloride Carbon Dioxide BUN Creatinine Glucose POC Glucose Lactic Acid Calcium Magnesium Ferritin 1960.0 H Total Bilirubin Direct Bilirubin AST ALT Alkaline Phosphatase Lactate Dehydrogenase 705 H C-Reactive Protein 3.10 H Total Protein Albumin Triglycerides Arterial Blood Glucose Arterial Blood Ionized Calcium Urine WBC (Auto) Coronavirus (PCR) SARS-CoV-2 IgG Ab Crossmatch 05/22/20 05/22/20 05/22/20 04:01 07:53 07:53 WBC 19.2 H RBC Hgb Hct MCV 98 H MCH 34 H MCHC RDW Lymph % (Auto) Lymph # (Auto) Butts # (Auto) Baso # (Auto) Seg Neutrophils % Seg Neuts % (Manual) 96.0 H Lymphocytes % (Manual) 1.0 L Nucleated RBC % Seg Neutrophils # Seg Neutrophils # Man 18.4 H Lymphocytes # (Manual) 0.2 L Monocytes # (Manual) PT INR APTT D-Dimer ABG pH POC ABG pCO2 53.8 H POC ABG pO2 125.5 H ABG pO2 ABG HCO3 ABG O2 Saturation ABG Base Excess ABG Hemoglobin ABG Oxyhemoglobin ABG Sodium 131.8 L ABG Potassium 4.8 H ABG Chloride 94.0 L ABG Glucose 163 H Oxyhemoglobin Sodium 131 L Potassium Chloride 93.4 L Carbon Dioxide BUN 40 H Creatinine Glucose 176 H POC Glucose Lactic Acid Calcium Magnesium 2.70 H Ferritin Total Bilirubin 1.80 H Direct Bilirubin AST 45 H ALT 116 H Alkaline Phosphatase 181 H Lactate Dehydrogenase C-Reactive Protein Total Protein Albumin 2.6 L Triglycerides Arterial Blood Glucose 163 H Arterial Blood Ionized Calcium 4.5 L Urine WBC (Auto) Coronavirus (PCR) SARS-CoV-2 IgG Ab Crossmatch 05/23/20 05/24/20 05/24/20 04:17 03:07 04:08 WBC RBC Hgb Hct MCV MCH MCHC RDW Lymph % (Auto) Lymph # (Auto) Butts # (Auto) Baso # (Auto) Seg Neutrophils % Seg Neuts % (Manual) Lymphocytes % (Manual) Nucleated RBC % Seg Neutrophils # Seg Neutrophils # Man Lymphocytes # (Manual) Monocytes # (Manual) PT INR APTT D-Dimer ABG pH 7.328 L POC ABG pCO2 POC ABG pO2 ABG pO2 72.8 L 73.4 L ABG HCO3 31.0 H 34.0 H ABG O2 Saturation 93.5 L ABG Base Excess 3.5 H 7.7 H ABG Hemoglobin 13.3 L 12.1 L ABG Oxyhemoglobin ABG Sodium ABG Potassium ABG Chloride ABG Glucose Oxyhemoglobin 91.5 L 94.3 L Sodium Potassium Chloride Carbon Dioxide BUN Creatinine Glucose POC Glucose 155 H Lactic Acid Calcium Magnesium Ferritin Total Bilirubin Direct Bilirubin AST ALT Alkaline Phosphatase Lactate Dehydrogenase C-Reactive Protein Total Protein Albumin Triglycerides Arterial Blood Glucose Arterial Blood Ionized Calcium Urine WBC (Auto) Coronavirus (PCR) SARS-CoV-2 IgG Ab Crossmatch 05/24/20 05/24/20 05/24/20 09:33 12:21 17:52 WBC RBC Hgb Hct MCV MCH MCHC RDW Lymph % (Auto) Lymph # (Auto) Butts # (Auto) Baso # (Auto) Seg Neutrophils % Seg Neuts % (Manual) Lymphocytes % (Manual) Nucleated RBC % Seg Neutrophils # Seg Neutrophils # Man Lymphocytes # (Manual) Monocytes # (Manual) PT INR APTT D-Dimer ABG pH POC ABG pCO2 POC ABG pO2 ABG pO2 ABG HCO3 ABG O2 Saturation ABG Base Excess ABG Hemoglobin ABG Oxyhemoglobin ABG Sodium ABG Potassium ABG Chloride ABG Glucose Oxyhemoglobin Sodium Potassium Chloride Carbon Dioxide 34 H D BUN 28 H Creatinine 0.7 L Glucose 168 H POC Glucose 173 H 164 H Lactic Acid Calcium Magnesium Ferritin Total Bilirubin Direct Bilirubin AST ALT Alkaline Phosphatase Lactate Dehydrogenase C-Reactive Protein Total Protein Albumin Triglycerides Arterial Blood Glucose Arterial Blood Ionized Calcium Urine WBC (Auto) Coronavirus (PCR) SARS-CoV-2 IgG Ab Crossmatch 05/24/20 05/25/20 05/25/20 23:47 04:29 05:46 WBC RBC Hgb Hct MCV MCH MCHC RDW Lymph % (Auto) Lymph # (Auto) Butts # (Auto) Baso # (Auto) Seg Neutrophils % Seg Neuts % (Manual) Lymphocytes % (Manual) Nucleated RBC % Seg Neutrophils # Seg Neutrophils # Man Lymphocytes # (Manual) Monocytes # (Manual) PT INR APTT D-Dimer ABG pH POC ABG pCO2 68.6 H POC ABG pO2 ABG pO2 ABG HCO3 ABG O2 Saturation ABG Base Excess ABG Hemoglobin ABG Oxyhemoglobin ABG Sodium ABG Potassium 4.7 H ABG Chloride ABG Glucose 226 H Oxyhemoglobin Sodium Potassium Chloride Carbon Dioxide BUN Creatinine Glucose POC Glucose 171 H 201 H Lactic Acid Calcium Magnesium Ferritin Total Bilirubin Direct Bilirubin AST ALT Alkaline Phosphatase Lactate Dehydrogenase C-Reactive Protein Total Protein Albumin Triglycerides Arterial Blood Glucose 226 H Arterial Blood Ionized Calcium Urine WBC (Auto) Coronavirus (PCR) SARS-CoV-2 IgG Ab Crossmatch 05/25/20 05/25/20 05/25/20 08:37 08:37 12:38 WBC 12.0 H RBC 3.64 L Hgb Hct MCV 99 H MCH 33 H MCHC RDW Lymph % (Auto) Lymph # (Auto) Butts # (Auto) Baso # (Auto) Seg Neutrophils % Seg Neuts % (Manual) Lymphocytes % (Manual) Nucleated RBC % Seg Neutrophils # Seg Neutrophils # Man Lymphocytes # (Manual) Monocytes # (Manual) PT INR APTT D-Dimer ABG pH POC ABG pCO2 POC ABG pO2 ABG pO2 ABG HCO3 ABG O2 Saturation ABG Base Excess ABG Hemoglobin ABG Oxyhemoglobin ABG Sodium ABG Potassium ABG Chloride ABG Glucose Oxyhemoglobin Sodium Potassium Chloride 97.3 L Carbon Dioxide 35 H BUN 25 H Creatinine 0.7 L Glucose 191 H POC Glucose 182 H Lactic Acid Calcium Magnesium Ferritin Total Bilirubin Direct Bilirubin AST ALT Alkaline Phosphatase Lactate Dehydrogenase C-Reactive Protein Total Protein Albumin Triglycerides Arterial Blood Glucose Arterial Blood Ionized Calcium Urine WBC (Auto) Coronavirus (PCR) SARS-CoV-2 IgG Ab Crossmatch 05/25/20 05/26/20 05/26/20 18:16 00:06 04:50 WBC RBC Hgb Hct MCV MCH MCHC RDW Lymph % (Auto) Lymph # (Auto) Butts # (Auto) Baso # (Auto) Seg Neutrophils % Seg Neuts % (Manual) Lymphocytes % (Manual) Nucleated RBC % Seg Neutrophils # Seg Neutrophils # Man Lymphocytes # (Manual) Monocytes # (Manual) PT INR APTT D-Dimer ABG pH POC ABG pCO2 POC ABG pO2 ABG pO2 221.5 H ABG HCO3 40.4 H ABG O2 Saturation 99.3 H ABG Base Excess 12.8 H ABG Hemoglobin 10.4 L ABG Oxyhemoglobin ABG Sodium ABG Potassium ABG Chloride ABG Glucose Oxyhemoglobin Sodium Potassium Chloride Carbon Dioxide BUN Creatinine Glucose POC Glucose 176 H 152 H Lactic Acid Calcium Magnesium Ferritin Total Bilirubin Direct Bilirubin AST ALT Alkaline Phosphatase Lactate Dehydrogenase C-Reactive Protein Total Protein Albumin Triglycerides Arterial Blood Glucose Arterial Blood Ionized Calcium Urine WBC (Auto) Coronavirus (PCR) SARS-CoV-2 IgG Ab Crossmatch 05/26/20 05/26/20 05/26/20 06:11 07:51 07:51 WBC 13.4 H RBC 3.64 L Hgb Hct MCV 98 H MCH 33 H MCHC RDW Lymph % (Auto) Lymph # (Auto) Butts # (Auto) Baso # (Auto) Seg Neutrophils % Seg Neuts % (Manual) Lymphocytes % (Manual) Nucleated RBC % Seg Neutrophils # Seg Neutrophils # Man Lymphocytes # (Manual) Monocytes # (Manual) PT INR APTT D-Dimer ABG pH POC ABG pCO2 POC ABG pO2 ABG pO2 ABG HCO3 ABG O2 Saturation ABG Base Excess ABG Hemoglobin ABG Oxyhemoglobin ABG Sodium ABG Potassium ABG Chloride ABG Glucose Oxyhemoglobin Sodium Potassium Chloride 96.6 L Carbon Dioxide 39 H BUN 29 H Creatinine 0.7 L Glucose 174 H POC Glucose 165 H Lactic Acid Calcium Magnesium Ferritin Total Bilirubin Direct Bilirubin AST ALT Alkaline Phosphatase Lactate Dehydrogenase C-Reactive Protein Total Protein Albumin Triglycerides Arterial Blood Glucose Arterial Blood Ionized Calcium Urine WBC (Auto) Coronavirus (PCR) SARS-CoV-2 IgG Ab Crossmatch 05/26/20 05/27/20 05/27/20 23:23 03:43 05:29 WBC RBC Hgb Hct MCV MCH MCHC RDW Lymph % (Auto) Lymph # (Auto) Butts # (Auto) Baso # (Auto) Seg Neutrophils % Seg Neuts % (Manual) Lymphocytes % (Manual) Nucleated RBC % Seg Neutrophils # Seg Neutrophils # Man Lymphocytes # (Manual) Monocytes # (Manual) PT INR APTT D-Dimer ABG pH 7.480 H POC ABG pCO2 52.4 H POC ABG pO2 61.4 L ABG pO2 ABG HCO3 ABG O2 Saturation ABG Base Excess ABG Hemoglobin ABG Oxyhemoglobin ABG Sodium 134.9 L ABG Potassium ABG Chloride 95.0 L ABG Glucose 221 H Oxyhemoglobin Sodium Potassium Chloride Carbon Dioxide BUN Creatinine Glucose POC Glucose 169 H 227 H Lactic Acid Calcium Magnesium Ferritin Total Bilirubin Direct Bilirubin AST ALT Alkaline Phosphatase Lactate Dehydrogenase C-Reactive Protein Total Protein Albumin Triglycerides Arterial Blood Glucose 221 H Arterial Blood Ionized Calcium 4.5 L Urine WBC (Auto) Coronavirus (PCR) SARS-CoV-2 IgG Ab Crossmatch 05/27/20 05/27/20 05/27/20 07:19 12:18 13:50 WBC RBC Hgb Hct MCV MCH MCHC RDW Lymph % (Auto) Lymph # (Auto) Butts # (Auto) Baso # (Auto) Seg Neutrophils % Seg Neuts % (Manual) Lymphocytes % (Manual) Nucleated RBC % Seg Neutrophils # Seg Neutrophils # Man Lymphocytes # (Manual) Monocytes # (Manual) PT INR APTT D-Dimer ABG pH POC ABG pCO2 POC ABG pO2 ABG pO2 ABG HCO3 ABG O2 Saturation ABG Base Excess ABG Hemoglobin ABG Oxyhemoglobin ABG Sodium ABG Potassium ABG Chloride ABG Glucose Oxyhemoglobin Sodium Potassium Chloride Carbon Dioxide BUN Creatinine Glucose POC Glucose 114 H 148 H Lactic Acid Calcium Magnesium Ferritin Total Bilirubin Direct Bilirubin AST ALT Alkaline Phosphatase Lactate Dehydrogenase C-Reactive Protein Total Protein Albumin Triglycerides 247 H Arterial Blood Glucose Arterial Blood Ionized Calcium Urine WBC (Auto) Coronavirus (PCR) SARS-CoV-2 IgG Ab Crossmatch 05/28/20 05/28/20 05/28/20 00:13 04:16 05:22 WBC RBC Hgb Hct MCV MCH MCHC RDW Lymph % (Auto) Lymph # (Auto) Butts # (Auto) Baso # (Auto) Seg Neutrophils % Seg Neuts % (Manual) Lymphocytes % (Manual) Nucleated RBC % Seg Neutrophils # Seg Neutrophils # Man Lymphocytes # (Manual) Monocytes # (Manual) PT INR APTT D-Dimer ABG pH POC ABG pCO2 64.4 H POC ABG pO2 60.5 L ABG pO2 ABG HCO3 ABG O2 Saturation ABG Base Excess ABG Hemoglobin ABG Oxyhemoglobin ABG Sodium ABG Potassium ABG Chloride 95.0 L ABG Glucose 209 H Oxyhemoglobin Sodium Potassium Chloride Carbon Dioxide BUN Creatinine Glucose POC Glucose 155 H 186 H Lactic Acid Calcium Magnesium Ferritin Total Bilirubin Direct Bilirubin AST ALT Alkaline Phosphatase Lactate Dehydrogenase C-Reactive Protein Total Protein Albumin Triglycerides Arterial Blood Glucose 209 H Arterial Blood Ionized Calcium Urine WBC (Auto) Coronavirus (PCR) SARS-CoV-2 IgG Ab Crossmatch 05/28/20 05/28/20 05/29/20 12:45 17:39 00:37 WBC RBC Hgb Hct MCV MCH MCHC RDW Lymph % (Auto) Lymph # (Auto) Butts # (Auto) Baso # (Auto) Seg Neutrophils % Seg Neuts % (Manual) Lymphocytes % (Manual) Nucleated RBC % Seg Neutrophils # Seg Neutrophils # Man Lymphocytes # (Manual) Monocytes # (Manual) PT INR APTT D-Dimer ABG pH POC ABG pCO2 POC ABG pO2 ABG pO2 ABG HCO3 ABG O2 Saturation ABG Base Excess ABG Hemoglobin ABG Oxyhemoglobin ABG Sodium ABG Potassium ABG Chloride ABG Glucose Oxyhemoglobin Sodium Potassium Chloride Carbon Dioxide BUN Creatinine Glucose POC Glucose 143 H 164 H 221 H Lactic Acid Calcium Magnesium Ferritin Total Bilirubin Direct Bilirubin AST ALT Alkaline Phosphatase Lactate Dehydrogenase C-Reactive Protein Total Protein Albumin Triglycerides Arterial Blood Glucose Arterial Blood Ionized Calcium Urine WBC (Auto) Coronavirus (PCR) SARS-CoV-2 IgG Ab Crossmatch 05/29/20 05/29/20 05/29/20 04:15 05:33 12:34 WBC RBC Hgb Hct MCV MCH MCHC RDW Lymph % (Auto) Lymph # (Auto) Butts # (Auto) Baso # (Auto) Seg Neutrophils % Seg Neuts % (Manual) Lymphocytes % (Manual) Nucleated RBC % Seg Neutrophils # Seg Neutrophils # Man Lymphocytes # (Manual) Monocytes # (Manual) PT INR APTT D-Dimer ABG pH 7.463 H POC ABG pCO2 56.3 H POC ABG pO2 81.2 L ABG pO2 ABG HCO3 ABG O2 Saturation ABG Base Excess ABG Hemoglobin ABG Oxyhemoglobin ABG Sodium ABG Potassium ABG Chloride 96.0 L ABG Glucose 194 H Oxyhemoglobin Sodium Potassium Chloride Carbon Dioxide BUN Creatinine Glucose POC Glucose 133 H 221 H Lactic Acid Calcium Magnesium Ferritin Total Bilirubin Direct Bilirubin AST ALT Alkaline Phosphatase Lactate Dehydrogenase C-Reactive Protein Total Protein Albumin Triglycerides Arterial Blood Glucose 194 H Arterial Blood Ionized Calcium 4.5 L Urine WBC (Auto) Coronavirus (PCR) SARS-CoV-2 IgG Ab Crossmatch 05/29/20 05/30/20 05/30/20 18:07 00:12 05:38 WBC RBC Hgb Hct MCV MCH MCHC RDW Lymph % (Auto) Lymph # (Auto) Butts # (Auto) Baso # (Auto) Seg Neutrophils % Seg Neuts % (Manual) Lymphocytes % (Manual) Nucleated RBC % Seg Neutrophils # Seg Neutrophils # Man Lymphocytes # (Manual) Monocytes # (Manual) PT INR APTT D-Dimer ABG pH POC ABG pCO2 POC ABG pO2 ABG pO2 ABG HCO3 ABG O2 Saturation ABG Base Excess ABG Hemoglobin ABG Oxyhemoglobin ABG Sodium ABG Potassium ABG Chloride ABG Glucose Oxyhemoglobin Sodium Potassium Chloride Carbon Dioxide BUN Creatinine Glucose POC Glucose 162 H 190 H 208 H Lactic Acid Calcium Magnesium Ferritin Total Bilirubin Direct Bilirubin AST ALT Alkaline Phosphatase Lactate Dehydrogenase C-Reactive Protein Total Protein Albumin Triglycerides Arterial Blood Glucose Arterial Blood Ionized Calcium Urine WBC (Auto) Coronavirus (PCR) SARS-CoV-2 IgG Ab Crossmatch 05/30/20 05/30/20 05/30/20 09:30 11:35 11:54 WBC 12.4 H RBC 3.48 L Hgb 11.3 L Hct 34.6 L MCV 99 H MCH 33 H MCHC RDW Lymph % (Auto) Lymph # (Auto) Butts # (Auto) Baso # (Auto) Seg Neutrophils % Seg Neuts % (Manual) Lymphocytes % (Manual) Nucleated RBC % Seg Neutrophils # Seg Neutrophils # Man Lymphocytes # (Manual) Monocytes # (Manual) PT INR APTT D-Dimer ABG pH 7.455 H POC ABG pCO2 57.5 H POC ABG pO2 81.5 L ABG pO2 ABG HCO3 ABG O2 Saturation ABG Base Excess ABG Hemoglobin ABG Oxyhemoglobin ABG Sodium ABG Potassium ABG Chloride 96.0 L ABG Glucose 204 H Oxyhemoglobin Sodium Potassium Chloride Carbon Dioxide BUN Creatinine Glucose POC Glucose 183 H Lactic Acid Calcium Magnesium Ferritin Total Bilirubin Direct Bilirubin AST ALT Alkaline Phosphatase Lactate Dehydrogenase C-Reactive Protein Total Protein Albumin Triglycerides Arterial Blood Glucose 204 H Arterial Blood Ionized Calcium Urine WBC (Auto) Coronavirus (PCR) SARS-CoV-2 IgG Ab Crossmatch 05/30/20 05/31/20 05/31/20 18:01 00:10 03:22 WBC RBC Hgb Hct MCV MCH MCHC RDW Lymph % (Auto) Lymph # (Auto) Butts # (Auto) Baso # (Auto) Seg Neutrophils % Seg Neuts % (Manual) Lymphocytes % (Manual) Nucleated RBC % Seg Neutrophils # Seg Neutrophils # Man Lymphocytes # (Manual) Monocytes # (Manual) PT INR APTT D-Dimer ABG pH POC ABG pCO2 60.4 H POC ABG pO2 71.5 L ABG pO2 ABG HCO3 ABG O2 Saturation ABG Base Excess ABG Hemoglobin ABG Oxyhemoglobin ABG Sodium ABG Potassium ABG Chloride 96.0 L ABG Glucose 169 H Oxyhemoglobin Sodium Potassium Chloride Carbon Dioxide BUN Creatinine Glucose POC Glucose 184 H 135 H Lactic Acid Calcium Magnesium Ferritin Total Bilirubin Direct Bilirubin AST ALT Alkaline Phosphatase Lactate Dehydrogenase C-Reactive Protein Total Protein Albumin Triglycerides Arterial Blood Glucose 169 H Arterial Blood Ionized Calcium 4.5 L Urine WBC (Auto) Coronavirus (PCR) SARS-CoV-2 IgG Ab Crossmatch 05/31/20 05/31/20 05/31/20 05:24 11:18 14:41 WBC RBC Hgb Hct MCV MCH MCHC RDW Lymph % (Auto) Lymph # (Auto) Butts # (Auto) Baso # (Auto) Seg Neutrophils % Seg Neuts % (Manual) Lymphocytes % (Manual) Nucleated RBC % Seg Neutrophils # Seg Neutrophils # Man Lymphocytes # (Manual) Monocytes # (Manual) PT INR APTT D-Dimer ABG pH POC ABG pCO2 POC ABG pO2 ABG pO2 ABG HCO3 ABG O2 Saturation ABG Base Excess ABG Hemoglobin ABG Oxyhemoglobin ABG Sodium ABG Potassium ABG Chloride ABG Glucose Oxyhemoglobin Sodium Potassium Chloride 96.8 L Carbon Dioxide 37 H BUN 31 H Creatinine 0.6 L Glucose 213 H POC Glucose 164 H 208 H Lactic Acid Calcium Magnesium Ferritin Total Bilirubin Direct Bilirubin AST ALT Alkaline Phosphatase Lactate Dehydrogenase C-Reactive Protein Total Protein Albumin Triglycerides Arterial Blood Glucose Arterial Blood Ionized Calcium Urine WBC (Auto) Coronavirus (PCR) SARS-CoV-2 IgG Ab Crossmatch 05/31/20 05/31/20 06/01/20 17:37 23:47 03:48 WBC RBC Hgb Hct MCV MCH MCHC RDW Lymph % (Auto) Lymph # (Auto) Butts # (Auto) Baso # (Auto) Seg Neutrophils % Seg Neuts % (Manual) Lymphocytes % (Manual) Nucleated RBC % Seg Neutrophils # Seg Neutrophils # Man Lymphocytes # (Manual) Monocytes # (Manual) PT INR APTT D-Dimer ABG pH POC ABG pCO2 59.7 H POC ABG pO2 73.9 L ABG pO2 ABG HCO3 ABG O2 Saturation ABG Base Excess ABG Hemoglobin ABG Oxyhemoglobin ABG Sodium ABG Potassium ABG Chloride 95.0 L ABG Glucose 256 H Oxyhemoglobin Sodium Potassium Chloride Carbon Dioxide BUN Creatinine Glucose POC Glucose 168 H 178 H Lactic Acid Calcium Magnesium Ferritin Total Bilirubin Direct Bilirubin AST ALT Alkaline Phosphatase Lactate Dehydrogenase C-Reactive Protein Total Protein Albumin Triglycerides Arterial Blood Glucose 256 H Arterial Blood Ionized Calcium Urine WBC (Auto) Coronavirus (PCR) SARS-CoV-2 IgG Ab Crossmatch 06/01/20 06/01/20 06/01/20 05:01 07:47 07:47 WBC 14.4 H RBC 3.46 L Hgb 11.1 L Hct 34.3 L MCV 99 H MCH MCHC RDW Lymph % (Auto) Lymph # (Auto) Butts # (Auto) Baso # (Auto) Seg Neutrophils % Seg Neuts % (Manual) 86.0 H Lymphocytes % (Manual) 9.0 L Nucleated RBC % Seg Neutrophils # Seg Neutrophils # Man 12.4 H Lymphocytes # (Manual) Monocytes # (Manual) PT INR APTT D-Dimer ABG pH POC ABG pCO2 POC ABG pO2 ABG pO2 ABG HCO3 ABG O2 Saturation ABG Base Excess ABG Hemoglobin ABG Oxyhemoglobin ABG Sodium ABG Potassium ABG Chloride ABG Glucose Oxyhemoglobin Sodium Potassium Chloride Carbon Dioxide BUN Creatinine Glucose POC Glucose 197 H Lactic Acid Calcium Magnesium Ferritin Total Bilirubin Direct Bilirubin AST ALT Alkaline Phosphatase Lactate Dehydrogenase C-Reactive Protein Total Protein Albumin Triglycerides 244 H Arterial Blood Glucose Arterial Blood Ionized Calcium Urine WBC (Auto) Coronavirus (PCR) SARS-CoV-2 IgG Ab Crossmatch 06/01/20 06/01/20 06/01/20 07:47 11:46 18:15 WBC RBC Hgb Hct MCV MCH MCHC RDW Lymph % (Auto) Lymph # (Auto) Butts # (Auto) Baso # (Auto) Seg Neutrophils % Seg Neuts % (Manual) Lymphocytes % (Manual) Nucleated RBC % Seg Neutrophils # Seg Neutrophils # Man Lymphocytes # (Manual) Monocytes # (Manual) PT INR APTT D-Dimer ABG pH POC ABG pCO2 POC ABG pO2 ABG pO2 ABG HCO3 ABG O2 Saturation ABG Base Excess ABG Hemoglobin ABG Oxyhemoglobin ABG Sodium ABG Potassium ABG Chloride ABG Glucose Oxyhemoglobin Sodium Potassium Chloride 95.4 L Carbon Dioxide 35 H BUN 30 H Creatinine 0.5 L Glucose 214 H POC Glucose 181 H 221 H Lactic Acid Calcium Magnesium Ferritin Total Bilirubin Direct Bilirubin AST 54 H ALT 235 H Alkaline Phosphatase Lactate Dehydrogenase C-Reactive Protein Total Protein Albumin 2.9 L Triglycerides Arterial Blood Glucose Arterial Blood Ionized Calcium Urine WBC (Auto) Coronavirus (PCR) SARS-CoV-2 IgG Ab Crossmatch 06/01/20 06/02/20 06/02/20 23:12 04:00 05:31 WBC RBC Hgb Hct MCV MCH MCHC RDW Lymph % (Auto) Lymph # (Auto) Butts # (Auto) Baso # (Auto) Seg Neutrophils % Seg Neuts % (Manual) Lymphocytes % (Manual) Nucleated RBC % Seg Neutrophils # Seg Neutrophils # Man Lymphocytes # (Manual) Monocytes # (Manual) PT INR APTT D-Dimer ABG pH 7.465 H POC ABG pCO2 POC ABG pO2 ABG pO2 203.4 H ABG HCO3 41.2 H ABG O2 Saturation 99.3 H ABG Base Excess 15.1 H ABG Hemoglobin 11.5 L ABG Oxyhemoglobin ABG Sodium ABG Potassium ABG Chloride ABG Glucose Oxyhemoglobin Sodium Potassium Chloride Carbon Dioxide BUN Creatinine Glucose POC Glucose 197 H 184 H Lactic Acid Calcium Magnesium Ferritin Total Bilirubin Direct Bilirubin AST ALT Alkaline Phosphatase Lactate Dehydrogenase C-Reactive Protein Total Protein Albumin Triglycerides Arterial Blood Glucose Arterial Blood Ionized Calcium Urine WBC (Auto) Coronavirus (PCR) SARS-CoV-2 IgG Ab Crossmatch 06/02/20 06/02/20 06/02/20 11:49 18:06 23:00 WBC RBC Hgb Hct MCV MCH MCHC RDW Lymph % (Auto) Lymph # (Auto) Butts # (Auto) Baso # (Auto) Seg Neutrophils % Seg Neuts % (Manual) Lymphocytes % (Manual) Nucleated RBC % Seg Neutrophils # Seg Neutrophils # Man Lymphocytes # (Manual) Monocytes # (Manual) PT INR APTT D-Dimer ABG pH POC ABG pCO2 POC ABG pO2 ABG pO2 ABG HCO3 ABG O2 Saturation ABG Base Excess ABG Hemoglobin ABG Oxyhemoglobin ABG Sodium ABG Potassium ABG Chloride ABG Glucose Oxyhemoglobin Sodium Potassium Chloride Carbon Dioxide BUN Creatinine Glucose POC Glucose 195 H 177 H 228 H Lactic Acid Calcium Magnesium Ferritin Total Bilirubin Direct Bilirubin AST ALT Alkaline Phosphatase Lactate Dehydrogenase C-Reactive Protein Total Protein Albumin Triglycerides Arterial Blood Glucose Arterial Blood Ionized Calcium Urine WBC (Auto) Coronavirus (PCR) SARS-CoV-2 IgG Ab Crossmatch 06/03/20 06/03/20 06/03/20 03:58 05:19 12:21 WBC RBC Hgb Hct MCV MCH MCHC RDW Lymph % (Auto) Lymph # (Auto) Butts # (Auto) Baso # (Auto) Seg Neutrophils % Seg Neuts % (Manual) Lymphocytes % (Manual) Nucleated RBC % Seg Neutrophils # Seg Neutrophils # Man Lymphocytes # (Manual) Monocytes # (Manual) PT INR APTT D-Dimer ABG pH POC ABG pCO2 POC ABG pO2 ABG pO2 171.0 H ABG HCO3 42.8 H ABG O2 Saturation ABG Base Excess 15.6 H ABG Hemoglobin 12.3 L ABG Oxyhemoglobin ABG Sodium ABG Potassium ABG Chloride ABG Glucose Oxyhemoglobin Sodium Potassium Chloride Carbon Dioxide BUN Creatinine Glucose POC Glucose 122 H 207 H Lactic Acid Calcium Magnesium Ferritin Total Bilirubin Direct Bilirubin AST ALT Alkaline Phosphatase Lactate Dehydrogenase C-Reactive Protein Total Protein Albumin Triglycerides Arterial Blood Glucose Arterial Blood Ionized Calcium Urine WBC (Auto) Coronavirus (PCR) SARS-CoV-2 IgG Ab Crossmatch 06/03/20 06/03/20 06/04/20 17:27 23:50 03:55 WBC RBC Hgb Hct MCV MCH MCHC RDW Lymph % (Auto) Lymph # (Auto) Butts # (Auto) Baso # (Auto) Seg Neutrophils % Seg Neuts % (Manual) Lymphocytes % (Manual) Nucleated RBC % Seg Neutrophils # Seg Neutrophils # Man Lymphocytes # (Manual) Monocytes # (Manual) PT INR APTT D-Dimer ABG pH POC ABG pCO2 POC ABG pO2 ABG pO2 117.2 H ABG HCO3 42.4 H ABG O2 Saturation ABG Base Excess 15.3 H ABG Hemoglobin 10.5 L ABG Oxyhemoglobin ABG Sodium ABG Potassium ABG Chloride ABG Glucose Oxyhemoglobin Sodium Potassium Chloride Carbon Dioxide BUN Creatinine Glucose POC Glucose 157 H 214 H Lactic Acid Calcium Magnesium Ferritin Total Bilirubin Direct Bilirubin AST ALT Alkaline Phosphatase Lactate Dehydrogenase C-Reactive Protein Total Protein Albumin Triglycerides Arterial Blood Glucose Arterial Blood Ionized Calcium Urine WBC (Auto) Coronavirus (PCR) SARS-CoV-2 IgG Ab Crossmatch 06/04/20 06/04/20 06/04/20 05:49 11:41 17:30 WBC RBC Hgb Hct MCV MCH MCHC RDW Lymph % (Auto) Lymph # (Auto) Butts # (Auto) Baso # (Auto) Seg Neutrophils % Seg Neuts % (Manual) Lymphocytes % (Manual) Nucleated RBC % Seg Neutrophils # Seg Neutrophils # Man Lymphocytes # (Manual) Monocytes # (Manual) PT INR APTT D-Dimer ABG pH POC ABG pCO2 POC ABG pO2 ABG pO2 ABG HCO3 ABG O2 Saturation ABG Base Excess ABG Hemoglobin ABG Oxyhemoglobin ABG Sodium ABG Potassium ABG Chloride ABG Glucose Oxyhemoglobin Sodium Potassium Chloride Carbon Dioxide BUN Creatinine Glucose POC Glucose 149 H 233 H 156 H Lactic Acid Calcium Magnesium Ferritin Total Bilirubin Direct Bilirubin AST ALT Alkaline Phosphatase Lactate Dehydrogenase C-Reactive Protein Total Protein Albumin Triglycerides Arterial Blood Glucose Arterial Blood Ionized Calcium Urine WBC (Auto) Coronavirus (PCR) SARS-CoV-2 IgG Ab Crossmatch 06/04/20 06/04/20 06/04/20 19:01 20:53 23:41 WBC RBC 3.18 L Hgb 10.8 L Hct 31.8 L MCV 100 H MCH 34 H MCHC RDW Lymph % (Auto) Lymph # (Auto) Butts # (Auto) Baso # (Auto) Seg Neutrophils % Seg Neuts % (Manual) 86.0 H Lymphocytes % (Manual) 10.0 L Nucleated RBC % 1.0 H Seg Neutrophils # Seg Neutrophils # Man 8.5 H Lymphocytes # (Manual) 1.0 L Monocytes # (Manual) PT INR APTT D-Dimer ABG pH POC ABG pCO2 POC ABG pO2 ABG pO2 ABG HCO3 ABG O2 Saturation ABG Base Excess ABG Hemoglobin ABG Oxyhemoglobin ABG Sodium ABG Potassium ABG Chloride ABG Glucose Oxyhemoglobin Sodium Potassium 3.4 L D Chloride 96.5 L Carbon Dioxide 41 H* BUN 27 H Creatinine 0.5 L Glucose 173 H POC Glucose 217 H Lactic Acid Calcium Magnesium Ferritin Total Bilirubin Direct Bilirubin AST ALT Alkaline Phosphatase Lactate Dehydrogenase C-Reactive Protein Total Protein Albumin Triglycerides Arterial Blood Glucose Arterial Blood Ionized Calcium Urine WBC (Auto) Coronavirus (PCR) SARS-CoV-2 IgG Ab Crossmatch 06/05/20 06/05/20 06/05/20 06:05 11:54 12:35 WBC RBC Hgb Hct MCV MCH MCHC RDW Lymph % (Auto) Lymph # (Auto) Butts # (Auto) Baso # (Auto) Seg Neutrophils % Seg Neuts % (Manual) Lymphocytes % (Manual) Nucleated RBC % Seg Neutrophils # Seg Neutrophils # Man Lymphocytes # (Manual) Monocytes # (Manual) PT INR APTT D-Dimer ABG pH POC ABG pCO2 POC ABG pO2 ABG pO2 127.9 H ABG HCO3 41.1 H ABG O2 Saturation ABG Base Excess 13.0 H ABG Hemoglobin 13.4 L ABG Oxyhemoglobin ABG Sodium ABG Potassium ABG Chloride ABG Glucose Oxyhemoglobin Sodium Potassium Chloride Carbon Dioxide BUN Creatinine Glucose POC Glucose 137 H 211 H Lactic Acid Calcium Magnesium Ferritin Total Bilirubin Direct Bilirubin AST ALT Alkaline Phosphatase Lactate Dehydrogenase C-Reactive Protein Total Protein Albumin Triglycerides Arterial Blood Glucose Arterial Blood Ionized Calcium Urine WBC (Auto) Coronavirus (PCR) SARS-CoV-2 IgG Ab Crossmatch 06/05/20 06/05/20 06/06/20 17:03 23:49 04:42 WBC RBC Hgb Hct MCV MCH MCHC RDW Lymph % (Auto) Lymph # (Auto) Butts # (Auto) Baso # (Auto) Seg Neutrophils % Seg Neuts % (Manual) Lymphocytes % (Manual) Nucleated RBC % Seg Neutrophils # Seg Neutrophils # Man Lymphocytes # (Manual) Monocytes # (Manual) PT INR APTT D-Dimer ABG pH POC ABG pCO2 56.1 H POC ABG pO2 52.5 L ABG pO2 ABG HCO3 ABG O2 Saturation ABG Base Excess ABG Hemoglobin 11.7 L ABG Oxyhemoglobin ABG Sodium ABG Potassium 3.3 L ABG Chloride 95.0 L ABG Glucose 156 H Oxyhemoglobin Sodium Potassium Chloride Carbon Dioxide BUN Creatinine Glucose POC Glucose 159 H 194 H Lactic Acid Calcium Magnesium Ferritin Total Bilirubin Direct Bilirubin AST ALT Alkaline Phosphatase Lactate Dehydrogenase C-Reactive Protein Total Protein Albumin Triglycerides Arterial Blood Glucose 156 H Arterial Blood Ionized Calcium Urine WBC (Auto) Coronavirus (PCR) SARS-CoV-2 IgG Ab Crossmatch 06/06/20 06/06/20 06/06/20 05:57 12:06 17:38 WBC RBC Hgb Hct MCV MCH MCHC RDW Lymph % (Auto) Lymph # (Auto) Butts # (Auto) Baso # (Auto) Seg Neutrophils % Seg Neuts % (Manual) Lymphocytes % (Manual) Nucleated RBC % Seg Neutrophils # Seg Neutrophils # Man Lymphocytes # (Manual) Monocytes # (Manual) PT INR APTT D-Dimer ABG pH POC ABG pCO2 POC ABG pO2 ABG pO2 ABG HCO3 ABG O2 Saturation ABG Base Excess ABG Hemoglobin ABG Oxyhemoglobin ABG Sodium ABG Potassium ABG Chloride ABG Glucose Oxyhemoglobin Sodium Potassium Chloride Carbon Dioxide BUN Creatinine Glucose POC Glucose 144 H 230 H 162 H Lactic Acid Calcium Magnesium Ferritin Total Bilirubin Direct Bilirubin AST ALT Alkaline Phosphatase Lactate Dehydrogenase C-Reactive Protein Total Protein Albumin Triglycerides Arterial Blood Glucose Arterial Blood Ionized Calcium Urine WBC (Auto) Coronavirus (PCR) SARS-CoV-2 IgG Ab Crossmatch 06/06/20 06/07/20 06/07/20 23:50 04:34 06:03 WBC RBC Hgb Hct MCV MCH MCHC RDW Lymph % (Auto) Lymph # (Auto) Butts # (Auto) Baso # (Auto) Seg Neutrophils % Seg Neuts % (Manual) Lymphocytes % (Manual) Nucleated RBC % Seg Neutrophils # Seg Neutrophils # Man Lymphocytes # (Manual) Monocytes # (Manual) PT INR APTT D-Dimer ABG pH 7.511 H POC ABG pCO2 53.5 H POC ABG pO2 114.5 H ABG pO2 ABG HCO3 ABG O2 Saturation ABG Base Excess ABG Hemoglobin 9.4 L ABG Oxyhemoglobin ABG Sodium 134.5 L ABG Potassium ABG Chloride 94.0 L ABG Glucose 186 H Oxyhemoglobin Sodium Potassium Chloride Carbon Dioxide BUN Creatinine Glucose POC Glucose 181 H 155 H Lactic Acid Calcium Magnesium Ferritin Total Bilirubin Direct Bilirubin AST ALT Alkaline Phosphatase Lactate Dehydrogenase C-Reactive Protein Total Protein Albumin Triglycerides Arterial Blood Glucose 186 H Arterial Blood Ionized Calcium 4.5 L Urine WBC (Auto) Coronavirus (PCR) SARS-CoV-2 IgG Ab Crossmatch 06/07/20 06/07/20 06/07/20 13:41 14:58 14:58 WBC RBC 2.72 L Hgb 9.3 L Hct 27.2 L MCV 100 H MCH 34 H MCHC RDW Lymph % (Auto) Lymph # (Auto) Butts # (Auto) Baso # (Auto) Seg Neutrophils % Seg Neuts % (Manual) Lymphocytes % (Manual) Nucleated RBC % Seg Neutrophils # Seg Neutrophils # Man Lymphocytes # (Manual) Monocytes # (Manual) PT INR APTT D-Dimer ABG pH POC ABG pCO2 POC ABG pO2 ABG pO2 ABG HCO3 ABG O2 Saturation ABG Base Excess ABG Hemoglobin ABG Oxyhemoglobin ABG Sodium ABG Potassium ABG Chloride ABG Glucose Oxyhemoglobin Sodium Potassium Chloride 93.5 L Carbon Dioxide 39 H BUN 22 H Creatinine 0.4 L Glucose 188 H POC Glucose 201 H Lactic Acid Calcium Magnesium Ferritin Total Bilirubin Direct Bilirubin AST 61 H ALT 273 H Alkaline Phosphatase Lactate Dehydrogenase C-Reactive Protein Total Protein 5.9 L Albumin 2.7 L Triglycerides Arterial Blood Glucose Arterial Blood Ionized Calcium Urine WBC (Auto) Coronavirus (PCR) SARS-CoV-2 IgG Ab Crossmatch 06/07/20 06/08/20 06/08/20 23:18 05:31 12:07 WBC RBC Hgb Hct MCV MCH MCHC RDW Lymph % (Auto) Lymph # (Auto) Butts # (Auto) Baso # (Auto) Seg Neutrophils % Seg Neuts % (Manual) Lymphocytes % (Manual) Nucleated RBC % Seg Neutrophils # Seg Neutrophils # Man Lymphocytes # (Manual) Monocytes # (Manual) PT INR APTT D-Dimer ABG pH POC ABG pCO2 POC ABG pO2 ABG pO2 ABG HCO3 ABG O2 Saturation ABG Base Excess ABG Hemoglobin ABG Oxyhemoglobin ABG Sodium ABG Potassium ABG Chloride ABG Glucose Oxyhemoglobin Sodium Potassium Chloride Carbon Dioxide BUN Creatinine Glucose POC Glucose 214 H 129 H 179 H Lactic Acid Calcium Magnesium Ferritin Total Bilirubin Direct Bilirubin AST ALT Alkaline Phosphatase Lactate Dehydrogenase C-Reactive Protein Total Protein Albumin Triglycerides Arterial Blood Glucose Arterial Blood Ionized Calcium Urine WBC (Auto) Coronavirus (PCR) SARS-CoV-2 IgG Ab Crossmatch 06/08/20 06/08/20 06/09/20 18:18 23:35 05:42 WBC RBC Hgb Hct MCV MCH MCHC RDW Lymph % (Auto) Lymph # (Auto) Butts # (Auto) Baso # (Auto) Seg Neutrophils % Seg Neuts % (Manual) Lymphocytes % (Manual) Nucleated RBC % Seg Neutrophils # Seg Neutrophils # Man Lymphocytes # (Manual) Monocytes # (Manual) PT INR APTT D-Dimer ABG pH POC ABG pCO2 POC ABG pO2 ABG pO2 ABG HCO3 ABG O2 Saturation ABG Base Excess ABG Hemoglobin ABG Oxyhemoglobin ABG Sodium ABG Potassium ABG Chloride ABG Glucose Oxyhemoglobin Sodium Potassium Chloride Carbon Dioxide BUN Creatinine Glucose POC Glucose 172 H 177 H 137 H Lactic Acid Calcium Magnesium Ferritin Total Bilirubin Direct Bilirubin AST ALT Alkaline Phosphatase Lactate Dehydrogenase C-Reactive Protein Total Protein Albumin Triglycerides Arterial Blood Glucose Arterial Blood Ionized Calcium Urine WBC (Auto) Coronavirus (PCR) SARS-CoV-2 IgG Ab Crossmatch 06/09/20 06/09/20 06/09/20 06:20 07:55 07:55 WBC 12.4 H RBC 3.26 L Hgb 11.1 L Hct 33.4 L D MCV 102 H MCH 34 H MCHC RDW Lymph % (Auto) Lymph # (Auto) Butts # (Auto) Baso # (Auto) Seg Neutrophils % Seg Neuts % (Manual) Lymphocytes % (Manual) Nucleated RBC % Seg Neutrophils # Seg Neutrophils # Man Lymphocytes # (Manual) Monocytes # (Manual) PT INR APTT D-Dimer ABG pH 7.466 H POC ABG pCO2 50.7 H POC ABG pO2 53.0 L ABG pO2 ABG HCO3 ABG O2 Saturation ABG Base Excess ABG Hemoglobin ABG Oxyhemoglobin ABG Sodium ABG Potassium 2.9 L ABG Chloride 93.0 L ABG Glucose 138 H Oxyhemoglobin Sodium Potassium 3.0 L Chloride 92.3 L Carbon Dioxide 37 H BUN 21 H Creatinine 0.6 L Glucose 120 H POC Glucose Lactic Acid Calcium Magnesium Ferritin Total Bilirubin Direct Bilirubin AST ALT Alkaline Phosphatase Lactate Dehydrogenase C-Reactive Protein Total Protein Albumin Triglycerides Arterial Blood Glucose 138 H Arterial Blood Ionized Calcium 4.5 L Urine WBC (Auto) Coronavirus (PCR) SARS-CoV-2 IgG Ab Crossmatch 06/09/20 06/09/20 06/10/20 11:22 18:32 04:46 WBC RBC Hgb Hct MCV MCH MCHC RDW Lymph % (Auto) Lymph # (Auto) Butts # (Auto) Baso # (Auto) Seg Neutrophils % Seg Neuts % (Manual) Lymphocytes % (Manual) Nucleated RBC % Seg Neutrophils # Seg Neutrophils # Man Lymphocytes # (Manual) Monocytes # (Manual) PT INR APTT D-Dimer ABG pH 7.501 H POC ABG pCO2 POC ABG pO2 126.5 H ABG pO2 ABG HCO3 ABG O2 Saturation ABG Base Excess ABG Hemoglobin 10.3 L ABG Oxyhemoglobin ABG Sodium ABG Potassium ABG Chloride ABG Glucose 220 H Oxyhemoglobin Sodium Potassium Chloride Carbon Dioxide BUN Creatinine Glucose POC Glucose 117 H 121 H Lactic Acid Calcium Magnesium Ferritin Total Bilirubin Direct Bilirubin AST ALT Alkaline Phosphatase Lactate Dehydrogenase C-Reactive Protein Total Protein Albumin Triglycerides Arterial Blood Glucose 220 H Arterial Blood Ionized Calcium Urine WBC (Auto) Coronavirus (PCR) SARS-CoV-2 IgG Ab Crossmatch 06/10/20 06/10/20 06/10/20 05:30 09:38 12:03 WBC RBC Hgb Hct MCV MCH MCHC RDW Lymph % (Auto) Lymph # (Auto) Butts # (Auto) Baso # (Auto) Seg Neutrophils % Seg Neuts % (Manual) Lymphocytes % (Manual) Nucleated RBC % Seg Neutrophils # Seg Neutrophils # Man Lymphocytes # (Manual) Monocytes # (Manual) PT INR APTT D-Dimer ABG pH POC ABG pCO2 POC ABG pO2 ABG pO2 ABG HCO3 ABG O2 Saturation ABG Base Excess ABG Hemoglobin ABG Oxyhemoglobin ABG Sodium ABG Potassium ABG Chloride ABG Glucose Oxyhemoglobin Sodium Potassium Chloride Carbon Dioxide BUN Creatinine Glucose POC Glucose 181 H 204 H Lactic Acid Calcium Magnesium Ferritin Total Bilirubin Direct Bilirubin AST ALT Alkaline Phosphatase Lactate Dehydrogenase C-Reactive Protein Total Protein Albumin Triglycerides 738 H Arterial Blood Glucose Arterial Blood Ionized Calcium Urine WBC (Auto) Coronavirus (PCR) SARS-CoV-2 IgG Ab Crossmatch 06/10/20 06/11/20 06/11/20 17:17 00:04 04:38 WBC RBC Hgb Hct MCV MCH MCHC RDW Lymph % (Auto) Lymph # (Auto) Butts # (Auto) Baso # (Auto) Seg Neutrophils % Seg Neuts % (Manual) Lymphocytes % (Manual) Nucleated RBC % Seg Neutrophils # Seg Neutrophils # Man Lymphocytes # (Manual) Monocytes # (Manual) PT INR APTT D-Dimer ABG pH 7.479 H POC ABG pCO2 POC ABG pO2 76.7 L ABG pO2 ABG HCO3 ABG O2 Saturation ABG Base Excess ABG Hemoglobin 9.8 L ABG Oxyhemoglobin ABG Sodium 135.8 L ABG Potassium ABG Chloride ABG Glucose 238 H Oxyhemoglobin Sodium Potassium Chloride Carbon Dioxide BUN Creatinine Glucose POC Glucose 156 H 178 H Lactic Acid Calcium Magnesium Ferritin Total Bilirubin Direct Bilirubin AST ALT Alkaline Phosphatase Lactate Dehydrogenase C-Reactive Protein Total Protein Albumin Triglycerides Arterial Blood Glucose 238 H Arterial Blood Ionized Calcium Urine WBC (Auto) Coronavirus (PCR) SARS-CoV-2 IgG Ab Crossmatch 06/11/20 06/11/20 06/11/20 05:21 06:52 11:50 WBC RBC Hgb Hct MCV MCH MCHC RDW Lymph % (Auto) Lymph # (Auto) Butts # (Auto) Baso # (Auto) Seg Neutrophils % Seg Neuts % (Manual) Lymphocytes % (Manual) Nucleated RBC % Seg Neutrophils # Seg Neutrophils # Man Lymphocytes # (Manual) Monocytes # (Manual) PT INR APTT D-Dimer ABG pH POC ABG pCO2 POC ABG pO2 ABG pO2 ABG HCO3 ABG O2 Saturation ABG Base Excess ABG Hemoglobin ABG Oxyhemoglobin ABG Sodium ABG Potassium ABG Chloride ABG Glucose Oxyhemoglobin Sodium Potassium Chloride Carbon Dioxide BUN Creatinine Glucose POC Glucose 215 H 187 H Lactic Acid Calcium Magnesium Ferritin Total Bilirubin Direct Bilirubin AST ALT Alkaline Phosphatase Lactate Dehydrogenase C-Reactive Protein Total Protein Albumin Triglycerides 331 H Arterial Blood Glucose Arterial Blood Ionized Calcium Urine WBC (Auto) Coronavirus (PCR) SARS-CoV-2 IgG Ab Crossmatch 06/11/20 06/11/20 06/12/20 17:49 23:35 04:52 WBC RBC Hgb Hct MCV MCH MCHC RDW Lymph % (Auto) Lymph # (Auto) Butts # (Auto) Baso # (Auto) Seg Neutrophils % Seg Neuts % (Manual) Lymphocytes % (Manual) Nucleated RBC % Seg Neutrophils # Seg Neutrophils # Man Lymphocytes # (Manual) Monocytes # (Manual) PT INR APTT D-Dimer ABG pH 7.486 H POC ABG pCO2 POC ABG pO2 ABG pO2 ABG HCO3 ABG O2 Saturation ABG Base Excess ABG Hemoglobin 9.4 L ABG Oxyhemoglobin ABG Sodium ABG Potassium 3.2 L ABG Chloride ABG Glucose 209 H Oxyhemoglobin Sodium Potassium Chloride Carbon Dioxide BUN Creatinine Glucose POC Glucose 211 H 200 H Lactic Acid Calcium Magnesium Ferritin Total Bilirubin Direct Bilirubin AST ALT Alkaline Phosphatase Lactate Dehydrogenase C-Reactive Protein Total Protein Albumin Triglycerides Arterial Blood Glucose 209 H Arterial Blood Ionized Calcium Urine WBC (Auto) Coronavirus (PCR) SARS-CoV-2 IgG Ab Crossmatch 06/12/20 06/12/20 06/12/20 05:13 11:47 18:33 WBC RBC Hgb Hct MCV MCH MCHC RDW Lymph % (Auto) Lymph # (Auto) Butts # (Auto) Baso # (Auto) Seg Neutrophils % Seg Neuts % (Manual) Lymphocytes % (Manual) Nucleated RBC % Seg Neutrophils # Seg Neutrophils # Man Lymphocytes # (Manual) Monocytes # (Manual) PT INR APTT D-Dimer ABG pH POC ABG pCO2 POC ABG pO2 ABG pO2 ABG HCO3 ABG O2 Saturation ABG Base Excess ABG Hemoglobin ABG Oxyhemoglobin ABG Sodium ABG Potassium ABG Chloride ABG Glucose Oxyhemoglobin Sodium Potassium Chloride Carbon Dioxide BUN Creatinine Glucose POC Glucose 174 H 214 H 194 H Lactic Acid Calcium Magnesium Ferritin Total Bilirubin Direct Bilirubin AST ALT Alkaline Phosphatase Lactate Dehydrogenase C-Reactive Protein Total Protein Albumin Triglycerides Arterial Blood Glucose Arterial Blood Ionized Calcium Urine WBC (Auto) Coronavirus (PCR) SARS-CoV-2 IgG Ab Crossmatch 06/12/20 06/13/20 06/13/20 23:49 05:41 12:30 WBC RBC Hgb Hct MCV MCH MCHC RDW Lymph % (Auto) Lymph # (Auto) Butts # (Auto) Baso # (Auto) Seg Neutrophils % Seg Neuts % (Manual) Lymphocytes % (Manual) Nucleated RBC % Seg Neutrophils # Seg Neutrophils # Man Lymphocytes # (Manual) Monocytes # (Manual) PT INR APTT D-Dimer ABG pH POC ABG pCO2 POC ABG pO2 ABG pO2 ABG HCO3 ABG O2 Saturation ABG Base Excess ABG Hemoglobin ABG Oxyhemoglobin ABG Sodium ABG Potassium ABG Chloride ABG Glucose Oxyhemoglobin Sodium Potassium Chloride Carbon Dioxide BUN Creatinine Glucose POC Glucose 160 H 150 H 181 H Lactic Acid Calcium Magnesium Ferritin Total Bilirubin Direct Bilirubin AST ALT Alkaline Phosphatase Lactate Dehydrogenase C-Reactive Protein Total Protein Albumin Triglycerides Arterial Blood Glucose Arterial Blood Ionized Calcium Urine WBC (Auto) Coronavirus (PCR) SARS-CoV-2 IgG Ab Crossmatch 06/13/20 06/13/20 06/13/20 14:14 17:48 23:27 WBC 12.8 H RBC 2.33 L Hgb 8.0 L Hct 23.3 L MCV 100 H MCH 34 H MCHC RDW 15.7 H Lymph % (Auto) Lymph # (Auto) Butts # (Auto) Baso # (Auto) Seg Neutrophils % Seg Neuts % (Manual) 85.0 H Lymphocytes % (Manual) 10.0 L Nucleated RBC % Seg Neutrophils # Seg Neutrophils # Man 10.9 H Lymphocytes # (Manual) Monocytes # (Manual) PT INR APTT D-Dimer ABG pH POC ABG pCO2 POC ABG pO2 ABG pO2 ABG HCO3 ABG O2 Saturation ABG Base Excess ABG Hemoglobin ABG Oxyhemoglobin ABG Sodium ABG Potassium ABG Chloride ABG Glucose Oxyhemoglobin Sodium Potassium Chloride Carbon Dioxide BUN Creatinine Glucose POC Glucose 173 H 154 H Lactic Acid Calcium Magnesium Ferritin Total Bilirubin Direct Bilirubin AST ALT Alkaline Phosphatase Lactate Dehydrogenase C-Reactive Protein Total Protein Albumin Triglycerides Arterial Blood Glucose Arterial Blood Ionized Calcium Urine WBC (Auto) Coronavirus (PCR) SARS-CoV-2 IgG Ab Crossmatch 06/14/20 06/14/20 06/14/20 03:58 05:21 07:15 WBC 26.2 H RBC 2.97 L Hgb 9.7 L Hct 29.9 L D MCV 101 H MCH 33 H MCHC RDW 15.3 H Lymph % (Auto) Lymph # (Auto) Butts # (Auto) Baso # (Auto) Seg Neutrophils % Seg Neuts % (Manual) 79.0 H Lymphocytes % (Manual) 5.0 L Nucleated RBC % 3.0 H Seg Neutrophils # Seg Neutrophils # Man 20.7 H Lymphocytes # (Manual) Monocytes # (Manual) 1.3 H PT INR APTT D-Dimer ABG pH POC ABG pCO2 51.5 H POC ABG pO2 70.0 L ABG pO2 ABG HCO3 ABG O2 Saturation ABG Base Excess ABG Hemoglobin 10.1 L ABG Oxyhemoglobin ABG Sodium 131.5 L ABG Potassium 3.1 L ABG Chloride 93.0 L ABG Glucose 188 H Oxyhemoglobin Sodium Potassium Chloride Carbon Dioxide BUN Creatinine Glucose POC Glucose 147 H Lactic Acid Calcium Magnesium Ferritin Total Bilirubin Direct Bilirubin AST ALT Alkaline Phosphatase Lactate Dehydrogenase C-Reactive Protein Total Protein Albumin Triglycerides Arterial Blood Glucose 188 H Arterial Blood Ionized Calcium Urine WBC (Auto) Coronavirus (PCR) SARS-CoV-2 IgG Ab Crossmatch 06/14/20 06/14/20 06/14/20 07:15 11:30 11:50 WBC RBC Hgb Hct MCV MCH MCHC RDW Lymph % (Auto) Lymph # (Auto) Butts # (Auto) Baso # (Auto) Seg Neutrophils % Seg Neuts % (Manual) Lymphocytes % (Manual) Nucleated RBC % Seg Neutrophils # Seg Neutrophils # Man Lymphocytes # (Manual) Monocytes # (Manual) PT INR APTT D-Dimer ABG pH POC ABG pCO2 POC ABG pO2 ABG pO2 ABG HCO3 ABG O2 Saturation ABG Base Excess ABG Hemoglobin ABG Oxyhemoglobin ABG Sodium ABG Potassium ABG Chloride ABG Glucose Oxyhemoglobin Sodium 135 L Potassium 3.5 L Chloride 90.4 L Carbon Dioxide 38 H BUN Creatinine 0.5 L Glucose 190 H POC Glucose 176 H Lactic Acid Calcium Magnesium Ferritin 1496.0 H Total Bilirubin Direct Bilirubin AST ALT 81 H Alkaline Phosphatase Lactate Dehydrogenase C-Reactive Protein Total Protein Albumin 2.9 L Triglycerides Arterial Blood Glucose Arterial Blood Ionized Calcium Urine WBC (Auto) Coronavirus (PCR) SARS-CoV-2 IgG Ab Crossmatch 06/14/20 06/15/20 06/15/20 23:31 04:00 05:00 WBC RBC Hgb Hct MCV MCH MCHC RDW Lymph % (Auto) Lymph # (Auto) Butts # (Auto) Baso # (Auto) Seg Neutrophils % Seg Neuts % (Manual) Lymphocytes % (Manual) Nucleated RBC % Seg Neutrophils # Seg Neutrophils # Man Lymphocytes # (Manual) Monocytes # (Manual) PT INR APTT D-Dimer ABG pH POC ABG pCO2 POC ABG pO2 ABG pO2 ABG HCO3 ABG O2 Saturation ABG Base Excess ABG Hemoglobin ABG Oxyhemoglobin ABG Sodium ABG Potassium ABG Chloride ABG Glucose Oxyhemoglobin Sodium 133 L Potassium Chloride 91.1 L Carbon Dioxide 34 H BUN Creatinine 0.4 L Glucose 159 H POC Glucose 200 H Lactic Acid Calcium Magnesium Ferritin Total Bilirubin 2.00 H Direct Bilirubin AST 47 H ALT 77 H Alkaline Phosphatase Lactate Dehydrogenase C-Reactive Protein Total Protein Albumin 2.6 L Triglycerides 152 H Arterial Blood Glucose Arterial Blood Ionized Calcium Urine WBC (Auto) Coronavirus (PCR) SARS-CoV-2 IgG Ab Crossmatch 06/15/20 06/15/20 06/15/20 05:35 06:27 11:38 WBC RBC Hgb Hct MCV MCH MCHC RDW Lymph % (Auto) Lymph # (Auto) Butts # (Auto) Baso # (Auto) Seg Neutrophils % Seg Neuts % (Manual) Lymphocytes % (Manual) Nucleated RBC % Seg Neutrophils # Seg Neutrophils # Man Lymphocytes # (Manual) Monocytes # (Manual) PT INR APTT D-Dimer ABG pH POC ABG pCO2 61.0 H POC ABG pO2 67.9 L ABG pO2 ABG HCO3 ABG O2 Saturation ABG Base Excess ABG Hemoglobin 10.4 L ABG Oxyhemoglobin ABG Sodium 132.7 L ABG Potassium 3.3 L ABG Chloride 92.0 L ABG Glucose 158 H Oxyhemoglobin Sodium Potassium Chloride Carbon Dioxide BUN Creatinine Glucose POC Glucose 148 H 197 H Lactic Acid Calcium Magnesium Ferritin Total Bilirubin Direct Bilirubin AST ALT Alkaline Phosphatase Lactate Dehydrogenase C-Reactive Protein Total Protein Albumin Triglycerides Arterial Blood Glucose 158 H Arterial Blood Ionized Calcium Urine WBC (Auto) Coronavirus (PCR) SARS-CoV-2 IgG Ab Crossmatch 06/15/20 06/15/20 06/16/20 17:29 Unknown 00:01 WBC 20.7 H RBC 2.57 L Hgb 8.9 L Hct 25.8 L MCV 101 H MCH 35 H MCHC 35 H RDW 16.0 H Lymph % (Auto) Lymph # (Auto) Butts # (Auto) Baso # (Auto) Seg Neutrophils % Seg Neuts % (Manual) 83.0 H Lymphocytes % (Manual) 8.0 L Nucleated RBC % Seg Neutrophils # Seg Neutrophils # Man 17.2 H Lymphocytes # (Manual) Monocytes # (Manual) 1.2 H PT INR APTT D-Dimer ABG pH POC ABG pCO2 POC ABG pO2 ABG pO2 ABG HCO3 ABG O2 Saturation ABG Base Excess ABG Hemoglobin ABG Oxyhemoglobin ABG Sodium ABG Potassium ABG Chloride ABG Glucose Oxyhemoglobin Sodium Potassium Chloride Carbon Dioxide BUN Creatinine Glucose POC Glucose 231 H 257 H Lactic Acid Calcium Magnesium Ferritin Total Bilirubin Direct Bilirubin AST ALT Alkaline Phosphatase Lactate Dehydrogenase C-Reactive Protein Total Protein Albumin Triglycerides Arterial Blood Glucose Arterial Blood Ionized Calcium Urine WBC (Auto) Coronavirus (PCR) SARS-CoV-2 IgG Ab Crossmatch 06/16/20 06/16/2006/16/20 04:00 04:00 05:22 WBC 13.8 H RBC 2.03 L Hgb 7.6 L Hct 20.7 L MCV 102 H MCH 37 H MCHC 37 H RDW 16.2 H Lymph % (Auto) 4.4 L Lymph # (Auto) 0.6 L Butts # (Auto) Baso # (Auto) Seg Neutrophils % Seg Neuts % (Manual) Lymphocytes % (Manual) Nucleated RBC % Seg Neutrophils # 12.7 H Seg Neutrophils # Man Lymphocytes # (Manual) Monocytes # (Manual) PT INR APTT D-Dimer ABG pH POC ABG pCO2 POC ABG pO2 ABG pO2 ABG HCO3 ABG O2 Saturation ABG Base Excess ABG Hemoglobin ABG Oxyhemoglobin ABG Sodium ABG Potassium ABG Chloride ABG Glucose Oxyhemoglobin Sodium 130 L Potassium Chloride 88.9 L Carbon Dioxide 36 H BUN Creatinine 0.3 L Glucose 276 H POC Glucose 250 H Lactic Acid Calcium Magnesium Ferritin Total Bilirubin Direct Bilirubin AST ALT Alkaline Phosphatase Lactate Dehydrogenase C-Reactive Protein Total Protein Albumin Triglycerides Arterial Blood Glucose Arterial Blood Ionized Calcium Urine WBC (Auto) Coronavirus (PCR) SARS-CoV-2 IgG Ab Crossmatch 06/16/20 06/16/20 06/17/20 12:44 18:18 00:39 WBC RBC Hgb Hct MCV MCH MCHC RDW Lymph % (Auto) Lymph # (Auto) Butts # (Auto) Baso # (Auto) Seg Neutrophils % Seg Neuts % (Manual) Lymphocytes % (Manual) Nucleated RBC % Seg Neutrophils # Seg Neutrophils # Man Lymphocytes # (Manual) Monocytes # (Manual) PT INR APTT D-Dimer ABG pH POC ABG pCO2 POC ABG pO2 ABG pO2 ABG HCO3 ABG O2 Saturation ABG Base Excess ABG Hemoglobin ABG Oxyhemoglobin ABG Sodium ABG Potassium ABG Chloride ABG Glucose Oxyhemoglobin Sodium Potassium Chloride Carbon Dioxide BUN Creatinine Glucose POC Glucose 279 H 239 H 247 H Lactic Acid Calcium Magnesium Ferritin Total Bilirubin Direct Bilirubin AST ALT Alkaline Phosphatase Lactate Dehydrogenase C-Reactive Protein Total Protein Albumin Triglycerides Arterial Blood Glucose Arterial Blood Ionized Calcium Urine WBC (Auto) Coronavirus (PCR) SARS-CoV-2 IgG Ab Crossmatch 06/17/20 06/17/20 06/17/20 03:40 04:08 10:54 WBC RBC Hgb Hct MCV MCH MCHC RDW Lymph % (Auto) Lymph # (Auto) Butts # (Auto) Baso # (Auto) Seg Neutrophils % Seg Neuts % (Manual) Lymphocytes % (Manual) Nucleated RBC % Seg Neutrophils # Seg Neutrophils # Man Lymphocytes # (Manual) Monocytes # (Manual) PT INR APTT D-Dimer ABG pH POC ABG pCO2 65.7 H POC ABG pO2 ABG pO2 ABG HCO3 ABG O2 Saturation ABG Base Excess ABG Hemoglobin 11.9 L ABG Oxyhemoglobin ABG Sodium ABG Potassium ABG Chloride 93.0 L ABG Glucose 244 H Oxyhemoglobin Sodium Potassium Chloride Carbon Dioxide BUN Creatinine Glucose POC Glucose 221 H 248 H Lactic Acid Calcium Magnesium Ferritin Total Bilirubin Direct Bilirubin AST ALT Alkaline Phosphatase Lactate Dehydrogenase C-Reactive Protein Total Protein Albumin Triglycerides Arterial Blood Glucose 244 H Arterial Blood Ionized Calcium Urine WBC (Auto) Coronavirus (PCR) SARS-CoV-2 IgG Ab Crossmatch 06/17/20 06/17/20 06/17/20 17:47 23:11 23:29 WBC RBC Hgb Hct MCV MCH MCHC RDW Lymph % (Auto) Lymph # (Auto) Butts # (Auto) Baso # (Auto) Seg Neutrophils % Seg Neuts % (Manual) Lymphocytes % (Manual) Nucleated RBC % Seg Neutrophils # Seg Neutrophils # Man Lymphocytes # (Manual) Monocytes # (Manual) PT INR APTT D-Dimer ABG pH POC ABG pCO2 85.2 H POC ABG pO2 48.4 L ABG pO2 ABG HCO3 ABG O2 Saturation ABG Base Excess ABG Hemoglobin 8.0 L ABG Oxyhemoglobin ABG Sodium ABG Potassium ABG Chloride 95.0 L ABG Glucose 292 H Oxyhemoglobin Sodium Potassium Chloride Carbon Dioxide BUN Creatinine Glucose POC Glucose 245 H 252 H Lactic Acid Calcium Magnesium Ferritin Total Bilirubin Direct Bilirubin AST ALT Alkaline Phosphatase Lactate Dehydrogenase C-Reactive Protein Total Protein Albumin Triglycerides Arterial Blood Glucose 292 H Arterial Blood Ionized Calcium Urine WBC (Auto) Coronavirus (PCR) SARS-CoV-2 IgG Ab Crossmatch 06/18/20 06/18/20 06/18/20 03:14 05:34 11:47 WBC RBC Hgb Hct MCV MCH MCHC RDW Lymph % (Auto) Lymph # (Auto) Butts # (Auto) Baso # (Auto) Seg Neutrophils % Seg Neuts % (Manual) Lymphocytes % (Manual) Nucleated RBC % Seg Neutrophils # Seg Neutrophils # Man Lymphocytes # (Manual) Monocytes # (Manual) PT INR APTT D-Dimer ABG pH POC ABG pCO2 65.4 H POC ABG pO2 160.7 H ABG pO2 ABG HCO3 ABG O2 Saturation ABG Base Excess ABG Hemoglobin 7.8 L ABG Oxyhemoglobin ABG Sodium ABG Potassium ABG Chloride 95.0 L ABG Glucose 251 H Oxyhemoglobin Sodium Potassium Chloride Carbon Dioxide BUN Creatinine Glucose POC Glucose 243 H 263 H Lactic Acid Calcium Magnesium Ferritin Total Bilirubin Direct Bilirubin AST ALT Alkaline Phosphatase Lactate Dehydrogenase C-Reactive Protein Total Protein Albumin Triglycerides Arterial Blood Glucose 251 H Arterial Blood Ionized Calcium Urine WBC (Auto) Coronavirus (PCR) SARS-CoV-2 IgG Ab Crossmatch 06/18/20 06/18/20 06/19/20 17:31 23:33 04:32 WBC RBC Hgb Hct MCV MCH MCHC RDW Lymph % (Auto) Lymph # (Auto) Butts # (Auto) Baso # (Auto) Seg Neutrophils % Seg Neuts % (Manual) Lymphocytes % (Manual) Nucleated RBC % Seg Neutrophils # Seg Neutrophils # Man Lymphocytes # (Manual) Monocytes # (Manual) PT INR APTT D-Dimer ABG pH POC ABG pCO2 83.1 H POC ABG pO2 65.8 L ABG pO2 ABG HCO3 ABG O2 Saturation ABG Base Excess ABG Hemoglobin 8.9 L ABG Oxyhemoglobin ABG Sodium ABG Potassium ABG Chloride 96.0 L ABG Glucose 297 H Oxyhemoglobin Sodium Potassium Chloride Carbon Dioxide BUN Creatinine Glucose POC Glucose 286 H 238 H Lactic Acid Calcium Magnesium Ferritin Total Bilirubin Direct Bilirubin AST ALT Alkaline Phosphatase Lactate Dehydrogenase C-Reactive Protein Total Protein Albumin Triglycerides Arterial Blood Glucose 297 H Arterial Blood Ionized Calcium Urine WBC (Auto) Coronavirus (PCR) SARS-CoV-2 IgG Ab Crossmatch 06/19/20 06/19/20 06/19/20 05:55 11:20 17:12 WBC RBC Hgb Hct MCV MCH MCHC RDW Lymph % (Auto) Lymph # (Auto) Butts # (Auto) Baso # (Auto) Seg Neutrophils % Seg Neuts % (Manual) Lymphocytes % (Manual) Nucleated RBC % Seg Neutrophils # Seg Neutrophils # Man Lymphocytes # (Manual) Monocytes # (Manual) PT INR APTT D-Dimer ABG pH POC ABG pCO2 POC ABG pO2 ABG pO2 ABG HCO3 ABG O2 Saturation ABG Base Excess ABG Hemoglobin ABG Oxyhemoglobin ABG Sodium ABG Potassium ABG Chloride ABG Glucose Oxyhemoglobin Sodium Potassium Chloride Carbon Dioxide BUN Creatinine Glucose POC Glucose 274 H 282 H 298 H Lactic Acid Calcium Magnesium Ferritin Total Bilirubin Direct Bilirubin AST ALT Alkaline Phosphatase Lactate Dehydrogenase C-Reactive Protein Total Protein Albumin Triglycerides Arterial Blood Glucose Arterial Blood Ionized Calcium Urine WBC (Auto) Coronavirus (PCR) SARS-CoV-2 IgG Ab Crossmatch 06/19/20 06/20/20 06/20/20 23:08 03:33 06:01 WBC RBC Hgb Hct MCV MCH MCHC RDW Lymph % (Auto) Lymph # (Auto) Butts # (Auto) Baso # (Auto) Seg Neutrophils % Seg Neuts % (Manual) Lymphocytes % (Manual) Nucleated RBC % Seg Neutrophils # Seg Neutrophils # Man Lymphocytes # (Manual) Monocytes # (Manual) PT INR APTT D-Dimer ABG pH POC ABG pCO2 POC ABG pO2 ABG pO2 69.9 L ABG HCO3 50.8 H ABG O2 Saturation ABG Base Excess 24.2 H ABG Hemoglobin 5.8 L ABG Oxyhemoglobin ABG Sodium ABG Potassium ABG Chloride ABG Glucose Oxyhemoglobin Sodium Potassium Chloride Carbon Dioxide BUN Creatinine Glucose POC Glucose 293 H 182 H Lactic Acid Calcium Magnesium Ferritin Total Bilirubin Direct Bilirubin AST ALT Alkaline Phosphatase Lactate Dehydrogenase C-Reactive Protein Total Protein Albumin Triglycerides Arterial Blood Glucose Arterial Blood Ionized Calcium Urine WBC (Auto) Coronavirus (PCR) SARS-CoV-2 IgG Ab Crossmatch 06/20/20 06/20/20 06/20/20 11:47 17:46 23:37 WBC RBC Hgb Hct MCV MCH MCHC RDW Lymph % (Auto) Lymph # (Auto) Butts # (Auto) Baso # (Auto) Seg Neutrophils % Seg Neuts % (Manual) Lymphocytes % (Manual) Nucleated RBC % Seg Neutrophils # Seg Neutrophils # Man Lymphocytes # (Manual) Monocytes # (Manual) PT INR APTT D-Dimer ABG pH POC ABG pCO2 POC ABG pO2 ABG pO2 ABG HCO3 ABG O2 Saturation ABG Base Excess ABG Hemoglobin ABG Oxyhemoglobin ABG Sodium ABG Potassium ABG Chloride ABG Glucose Oxyhemoglobin Sodium Potassium Chloride Carbon Dioxide BUN Creatinine Glucose POC Glucose 170 H 215 H 256 H Lactic Acid Calcium Magnesium Ferritin Total Bilirubin Direct Bilirubin AST ALT Alkaline Phosphatase Lactate Dehydrogenase C-Reactive Protein Total Protein Albumin Triglycerides Arterial Blood Glucose Arterial Blood Ionized Calcium Urine WBC (Auto) Coronavirus (PCR) SARS-CoV-2 IgG Ab Crossmatch 06/21/20 06/21/20 06/21/20 04:00 05:14 05:51 WBC RBC Hgb Hct MCV MCH MCHC RDW Lymph % (Auto) Lymph # (Auto) Butts # (Auto) Baso # (Auto) Seg Neutrophils % Seg Neuts % (Manual) Lymphocytes % (Manual) Nucleated RBC % Seg Neutrophils # Seg Neutrophils # Man Lymphocytes # (Manual) Monocytes # (Manual) PT INR APTT D-Dimer ABG pH 7.474 H POC ABG pCO2 POC ABG pO2 ABG pO2 ABG HCO3 52.1 H ABG O2 Saturation ABG Base Excess 23.3 H ABG Hemoglobin 5.3 L ABG Oxyhemoglobin ABG Sodium ABG Potassium ABG Chloride ABG Glucose Oxyhemoglobin 93.8 L Sodium Potassium Chloride Carbon Dioxide BUN Creatinine Glucose POC Glucose 122 H 129 H Lactic Acid Calcium Magnesium Ferritin Total Bilirubin Direct Bilirubin AST ALT Alkaline Phosphatase Lactate Dehydrogenase C-Reactive Protein Total Protein Albumin Triglycerides Arterial Blood Glucose Arterial Blood Ionized Calcium Urine WBC (Auto) Coronavirus (PCR) SARS-CoV-2 IgG Ab Crossmatch 06/21/20 06/21/20 06/21/20 11:00 11:00 11:42 WBC 14.2 H RBC 1.85 L Hgb 6.2 L Hct 19.5 L* MCV 105 H MCH 34 H MCHC RDW 18.0 H Lymph % (Auto) Lymph # (Auto) Butts # (Auto) Baso # (Auto) Seg Neutrophils % Seg Neuts % (Manual) Lymphocytes % (Manual) Nucleated RBC % Seg Neutrophils # Seg Neutrophils # Man Lymphocytes # (Manual) Monocytes # (Manual) PT INR APTT D-Dimer ABG pH POC ABG pCO2 POC ABG pO2 ABG pO2 ABG HCO3 ABG O2 Saturation ABG Base Excess ABG Hemoglobin ABG Oxyhemoglobin ABG Sodium ABG Potassium ABG Chloride ABG Glucose Oxyhemoglobin Sodium 147 H Potassium Chloride Carbon Dioxide 51 H* BUN 31 H Creatinine 0.5 L Glucose 224 H POC Glucose 217 H Lactic Acid Calcium Magnesium Ferritin Total Bilirubin Direct Bilirubin AST ALT Alkaline Phosphatase Lactate Dehydrogenase C-Reactive Protein Total Protein Albumin Triglycerides Arterial Blood Glucose Arterial Blood Ionized Calcium Urine WBC (Auto) Coronavirus (PCR) SARS-CoV-2 IgG Ab Crossmatch 06/21/20 06/21/20 06/21/20 14:18 14:30 18:36 WBC RBC Hgb Hct MCV MCH MCHC RDW Lymph % (Auto) Lymph # (Auto) Butts # (Auto) Baso # (Auto) Seg Neutrophils % Seg Neuts % (Manual) Lymphocytes % (Manual) Nucleated RBC % Seg Neutrophils # Seg Neutrophils # Man Lymphocytes # (Manual) Monocytes # (Manual) PT 15.1 H INR 1.19 H APTT D-Dimer ABG pH POC ABG pCO2 POC ABG pO2 ABG pO2 ABG HCO3 ABG O2 Saturation ABG Base Excess ABG Hemoglobin ABG Oxyhemoglobin ABG Sodium ABG Potassium ABG Chloride ABG Glucose Oxyhemoglobin Sodium Potassium Chloride Carbon Dioxide BUN Creatinine Glucose POC Glucose 185 H Lactic Acid Calcium Magnesium Ferritin Total Bilirubin Direct Bilirubin AST ALT Alkaline Phosphatase Lactate Dehydrogenase C-Reactive Protein Total Protein Albumin Triglycerides Arterial Blood Glucose Arterial Blood Ionized Calcium Urine WBC (Auto) Coronavirus (PCR) SARS-CoV-2 IgG Ab Crossmatch See Detail 06/21/20 06/22/20 06/22/20 21:14 03:50 04:00 WBC RBC Hgb Hct MCV MCH MCHC RDW Lymph % (Auto) Lymph # (Auto) Butts # (Auto) Baso # (Auto) Seg Neutrophils % Seg Neuts % (Manual) Lymphocytes % (Manual) Nucleated RBC % Seg Neutrophils # Seg Neutrophils # Man Lymphocytes # (Manual) Monocytes # (Manual) PT INR APTT D-Dimer ABG pH 7.451 H POC ABG pCO2 POC ABG pO2 ABG pO2 ABG HCO3 47.5 H ABG O2 Saturation ABG Base Excess 22.0 H ABG Hemoglobin < 5.1 L ABG Oxyhemoglobin ABG Sodium ABG Potassium ABG Chloride ABG Glucose Oxyhemoglobin 94.1 L Sodium 149 H Potassium 3.5 L Chloride Carbon Dioxide 42 H* D BUN 34 H Creatinine 0.4 L Glucose 219 H POC Glucose 250 H Lactic Acid Calcium Magnesium Ferritin Total Bilirubin Direct Bilirubin AST ALT Alkaline Phosphatase Lactate Dehydrogenase C-Reactive Protein Total Protein Albumin Triglycerides Arterial Blood Glucose Arterial Blood Ionized Calcium Urine WBC (Auto) Coronavirus (PCR) SARS-CoV-2 IgG Ab Crossmatch 06/22/20 06/22/20 06/22/20 12:16 14:29 17:56 WBC RBC Hgb Hct MCV MCH MCHC RDW Lymph % (Auto) Lymph # (Auto) Butts # (Auto) Baso # (Auto) Seg Neutrophils % Seg Neuts % (Manual) Lymphocytes % (Manual) Nucleated RBC % Seg Neutrophils # Seg Neutrophils # Man Lymphocytes # (Manual) Monocytes # (Manual) PT 11.8 L INR APTT 23.5 L D-Dimer ABG pH POC ABG pCO2 POC ABG pO2 ABG pO2 ABG HCO3 ABG O2 Saturation ABG Base Excess ABG Hemoglobin ABG Oxyhemoglobin ABG Sodium ABG Potassium ABG Chloride ABG Glucose Oxyhemoglobin Sodium Potassium Chloride Carbon Dioxide BUN Creatinine Glucose POC Glucose 215 H 215 H Lactic Acid Calcium Magnesium Ferritin Total Bilirubin Direct Bilirubin AST ALT Alkaline Phosphatase Lactate Dehydrogenase C-Reactive Protein Total Protein Albumin Triglycerides Arterial Blood Glucose Arterial Blood Ionized Calcium Urine WBC (Auto) Coronavirus (PCR) SARS-CoV-2 IgG Ab Crossmatch 06/22/20 06/22/20 06/22/20 23:36 23:45 Unknown WBC 14.1 H RBC 2.70 L Hgb 8.9 L 8.9 L Hct 26.9 L 27.2 L D MCV 101 H MCH 33 H MCHC RDW 17.7 H Lymph % (Auto) Lymph # (Auto) Butts # (Auto) Baso # (Auto) Seg Neutrophils % Seg Neuts % (Manual) 92.0 H Lymphocytes % (Manual) 5.0 L Nucleated RBC % Seg Neutrophils # Seg Neutrophils # Man 13.0 H Lymphocytes # (Manual) 0.7 L Monocytes # (Manual) PT INR APTT D-Dimer ABG pH POC ABG pCO2 POC ABG pO2 ABG pO2 ABG HCO3 ABG O2 Saturation ABG Base Excess ABG Hemoglobin ABG Oxyhemoglobin ABG Sodium ABG Potassium ABG Chloride ABG Glucose Oxyhemoglobin Sodium Potassium Chloride Carbon Dioxide BUN Creatinine Glucose POC Glucose 208 H Lactic Acid Calcium Magnesium Ferritin Total Bilirubin Direct Bilirubin AST ALT Alkaline Phosphatase Lactate Dehydrogenase C-Reactive Protein Total Protein Albumin Triglycerides Arterial Blood Glucose Arterial Blood Ionized Calcium Urine WBC (Auto) Coronavirus (PCR) SARS-CoV-2 IgG Ab Crossmatch 06/23/20 06/23/20 06/23/20 05:17 05:19 06:50 WBC RBC Hgb Hct MCV MCH MCHC RDW Lymph % (Auto) Lymph # (Auto) Butts # (Auto) Baso # (Auto) Seg Neutrophils % Seg Neuts % (Manual) Lymphocytes % (Manual) Nucleated RBC % Seg Neutrophils # Seg Neutrophils # Man Lymphocytes # (Manual) Monocytes # (Manual) PT INR APTT D-Dimer ABG pH POC ABG pCO2 69.7 H POC ABG pO2 63.3 L ABG pO2 ABG HCO3 ABG O2 Saturation ABG Base Excess ABG Hemoglobin 10.1 L ABG Oxyhemoglobin ABG Sodium ABG Potassium 3.3 L ABG Chloride ABG Glucose 226 H Oxyhemoglobin Sodium Potassium 3.0 L Chloride Carbon Dioxide 41 H* BUN 26 H Creatinine 0.4 L Glucose 209 H POC Glucose 200 H Lactic Acid Calcium Magnesium Ferritin Total Bilirubin Direct Bilirubin AST ALT Alkaline Phosphatase Lactate Dehydrogenase C-Reactive Protein Total Protein Albumin 2.9 L Triglycerides Arterial Blood Glucose 226 H Arterial Blood Ionized Calcium Urine WBC (Auto) Coronavirus (PCR) SARS-CoV-2 IgG Ab Crossmatch 06/23/20 06/23/20 06/23/20 09:41 12:04 18:16 WBC RBC Hgb 9.1 L Hct 28.0 L MCV MCH MCHC RDW Lymph % (Auto) Lymph # (Auto) Butts # (Auto) Baso # (Auto) Seg Neutrophils % Seg Neuts % (Manual) Lymphocytes % (Manual) Nucleated RBC % Seg Neutrophils # Seg Neutrophils # Man Lymphocytes # (Manual) Monocytes # (Manual) PT INR APTT D-Dimer ABG pH POC ABG pCO2 POC ABG pO2 ABG pO2 ABG HCO3 ABG O2 Saturation ABG Base Excess ABG Hemoglobin ABG Oxyhemoglobin ABG Sodium ABG Potassium ABG Chloride ABG Glucose Oxyhemoglobin Sodium Potassium Chloride Carbon Dioxide BUN Creatinine Glucose POC Glucose 146 H 162 H Lactic Acid Calcium Magnesium Ferritin Total Bilirubin Direct Bilirubin AST ALT Alkaline Phosphatase Lactate Dehydrogenase C-Reactive Protein Total Protein Albumin Triglycerides Arterial Blood Glucose Arterial Blood Ionized Calcium Urine WBC (Auto) Coronavirus (PCR) SARS-CoV-2 IgG Ab Crossmatch 06/23/20 06/23/20 06/24/20 23:24 23:41 02:39 WBC RBC Hgb 8.2 L 8.8 L Hct 24.9 L 26.8 L MCV MCH MCHC RDW Lymph % (Auto) Lymph # (Auto) Butts # (Auto) Baso # (Auto) Seg Neutrophils % Seg Neuts % (Manual) Lymphocytes % (Manual) Nucleated RBC % Seg Neutrophils # Seg Neutrophils # Man Lymphocytes # (Manual) Monocytes # (Manual) PT INR APTT D-Dimer ABG pH POC ABG pCO2 POC ABG pO2 ABG pO2 ABG HCO3 ABG O2 Saturation ABG Base Excess ABG Hemoglobin ABG Oxyhemoglobin ABG Sodium ABG Potassium ABG Chloride ABG Glucose Oxyhemoglobin Sodium Potassium Chloride Carbon Dioxide BUN Creatinine Glucose POC Glucose 248 H Lactic Acid Calcium Magnesium Ferritin Total Bilirubin Direct Bilirubin AST ALT Alkaline Phosphatase Lactate Dehydrogenase C-Reactive Protein Total Protein Albumin Triglycerides Arterial Blood Glucose Arterial Blood Ionized Calcium Urine WBC (Auto) Coronavirus (PCR) SARS-CoV-2 IgG Ab Crossmatch 06/24/20 06/24/20 06/24/20 02:39 02:45 05:31 WBC RBC Hgb Hct MCV MCH MCHC RDW Lymph % (Auto) Lymph # (Auto) Butts # (Auto) Baso # (Auto) Seg Neutrophils % Seg Neuts % (Manual) Lymphocytes % (Manual) Nucleated RBC % Seg Neutrophils # Seg Neutrophils # Man Lymphocytes # (Manual) Monocytes # (Manual) PT INR APTT D-Dimer ABG pH POC ABG pCO2 66.9 H POC ABG pO2 109.7 H ABG pO2 ABG HCO3 ABG O2 Saturation ABG Base Excess ABG Hemoglobin 9.7 L ABG Oxyhemoglobin ABG Sodium 135.0 L ABG Potassium ABG Chloride 97.0 L ABG Glucose 277 H Oxyhemoglobin Sodium 136 L Potassium Chloride 95.0 L Carbon Dioxide 34 H D BUN 24 H Creatinine 0.3 L Glucose 260 H POC Glucose 164 H Lactic Acid Calcium Magnesium Ferritin Total Bilirubin Direct Bilirubin AST ALT Alkaline Phosphatase Lactate Dehydrogenase C-Reactive Protein Total Protein 5.2 L Albumin 2.6 L Triglycerides Arterial Blood Glucose 277 H Arterial Blood Ionized Calcium Urine WBC (Auto) Coronavirus (PCR) SARS-CoV-2 IgG Ab Crossmatch 06/24/20 06/24/20 06/24/20 10:00 11:49 17:39 WBC RBC Hgb 8.9 L Hct 26.5 L MCV MCH MCHC RDW Lymph % (Auto) Lymph # (Auto) Butts # (Auto) Baso # (Auto) Seg Neutrophils % Seg Neuts % (Manual) Lymphocytes % (Manual) Nucleated RBC % Seg Neutrophils # Seg Neutrophils # Man Lymphocytes # (Manual) Monocytes # (Manual) PT INR APTT D-Dimer ABG pH POC ABG pCO2 POC ABG pO2 ABG pO2 ABG HCO3 ABG O2 Saturation ABG Base Excess ABG Hemoglobin ABG Oxyhemoglobin ABG Sodium ABG Potassium ABG Chloride ABG Glucose Oxyhemoglobin Sodium Potassium Chloride Carbon Dioxide BUN Creatinine Glucose POC Glucose 198 H 223 H Lactic Acid Calcium Magnesium Ferritin Total Bilirubin Direct Bilirubin AST ALT Alkaline Phosphatase Lactate Dehydrogenase C-Reactive Protein Total Protein Albumin Triglycerides Arterial Blood Glucose Arterial Blood Ionized Calcium Urine WBC (Auto) Coronavirus (PCR) SARS-CoV-2 IgG Ab Crossmatch 06/24/20 06/25/20 06/25/20 23:56 02:16 04:08 WBC RBC Hgb Hct MCV MCH MCHC RDW Lymph % (Auto) Lymph # (Auto) Butts # (Auto) Baso # (Auto) Seg Neutrophils % Seg Neuts % (Manual) Lymphocytes % (Manual) Nucleated RBC % Seg Neutrophils # Seg Neutrophils # Man Lymphocytes # (Manual) Monocytes # (Manual) PT INR APTT D-Dimer ABG pH 7.454 H POC ABG pCO2 56.9 H POC ABG pO2 61.0 L ABG pO2 ABG HCO3 ABG O2 Saturation ABG Base Excess ABG Hemoglobin ABG Oxyhemoglobin ABG Sodium 134.3 L ABG Potassium ABG Chloride 92.0 L ABG Glucose 246 H Oxyhemoglobin Sodium 134 L Potassium Chloride 89.7 L Carbon Dioxide 36 H BUN Creatinine 0.3 L Glucose 254 H POC Glucose 225 H Lactic Acid Calcium Magnesium Ferritin Total Bilirubin Direct Bilirubin AST ALT Alkaline Phosphatase Lactate Dehydrogenase C-Reactive Protein Total Protein Albumin 2.9 L Triglycerides Arterial Blood Glucose 246 H Arterial Blood Ionized Calcium Urine WBC (Auto) Coronavirus (PCR) SARS-CoV-2 IgG Ab Crossmatch 06/25/20 06/25/20 06/25/20 05:44 11:35 17:33 WBC RBC Hgb Hct MCV MCH MCHC RDW Lymph % (Auto) Lymph # (Auto) Butts # (Auto) Baso # (Auto) Seg Neutrophils % Seg Neuts % (Manual) Lymphocytes % (Manual) Nucleated RBC % Seg Neutrophils # Seg Neutrophils # Man Lymphocytes # (Manual) Monocytes # (Manual) PT INR APTT D-Dimer ABG pH POC ABG pCO2 POC ABG pO2 ABG pO2 ABG HCO3 ABG O2 Saturation ABG Base Excess ABG Hemoglobin ABG Oxyhemoglobin ABG Sodium ABG Potassium ABG Chloride ABG Glucose Oxyhemoglobin Sodium Potassium Chloride Carbon Dioxide BUN Creatinine Glucose POC Glucose 170 H 175 H 229 H Lactic Acid Calcium Magnesium Ferritin Total Bilirubin Direct Bilirubin AST ALT Alkaline Phosphatase Lactate Dehydrogenase C-Reactive Protein Total Protein Albumin Triglycerides Arterial Blood Glucose Arterial Blood Ionized Calcium Urine WBC (Auto) Coronavirus (PCR) SARS-CoV-2 IgG Ab Crossmatch 06/25/20 06/26/20 06/26/20 23:55 02:17 02:17 WBC RBC Hgb 10.0 L Hct 30.4 L MCV MCH MCHC RDW Lymph % (Auto) Lymph # (Auto) Butts # (Auto) Baso # (Auto) Seg Neutrophils % Seg Neuts % (Manual) Lymphocytes % (Manual) Nucleated RBC % Seg Neutrophils # Seg Neutrophils # Man Lymphocytes # (Manual) Monocytes # (Manual) PT INR APTT D-Dimer ABG pH POC ABG pCO2 POC ABG pO2 ABG pO2 ABG HCO3 ABG O2 Saturation ABG Base Excess ABG Hemoglobin ABG Oxyhemoglobin ABG Sodium ABG Potassium ABG Chloride ABG Glucose Oxyhemoglobin Sodium 136 L Potassium Chloride 90.1 L Carbon Dioxide 39 H BUN Creatinine 0.2 L Glucose 232 H POC Glucose 192 H Lactic Acid Calcium Magnesium Ferritin Total Bilirubin Direct Bilirubin AST ALT Alkaline Phosphatase Lactate Dehydrogenase C-Reactive Protein Total Protein 6.1 L Albumin 2.9 L Triglycerides Arterial Blood Glucose Arterial Blood Ionized Calcium Urine WBC (Auto) Coronavirus (PCR) SARS-CoV-2 IgG Ab Crossmatch 06/26/20 06/26/20 06/26/20 04:15 04:49 05:28 WBC RBC Hgb Hct MCV MCH MCHC RDW Lymph % (Auto) Lymph # (Auto) Butts # (Auto) Baso # (Auto) Seg Neutrophils % Seg Neuts % (Manual) Lymphocytes % (Manual) Nucleated RBC % Seg Neutrophils # Seg Neutrophils # Man Lymphocytes # (Manual) Monocytes # (Manual) PT INR APTT D-Dimer ABG pH 7.453 H POC ABG pCO2 59.6 H POC ABG pO2 ABG pO2 ABG HCO3 ABG O2 Saturation ABG Base Excess ABG Hemoglobin 10.0 L ABG Oxyhemoglobin ABG Sodium 134.2 L ABG Potassium 3.3 L ABG Chloride 92.0 L ABG Glucose 305 H Oxyhemoglobin Sodium Potassium Chloride Carbon Dioxide BUN Creatinine Glucose POC Glucose 234 H Lactic Acid Calcium Magnesium Ferritin Total Bilirubin Direct Bilirubin AST ALT Alkaline Phosphatase Lactate Dehydrogenase C-Reactive Protein Total Protein Albumin Triglycerides 203 H Arterial Blood Glucose 305 H Arterial Blood Ionized Calcium Urine WBC (Auto) Coronavirus (PCR) SARS-CoV-2 IgG Ab Crossmatch 06/26/20 06/26/20 06/26/20 11:58 17:58 21:32 WBC RBC Hgb Hct MCV MCH MCHC RDW Lymph % (Auto) Lymph # (Auto) Butts # (Auto) Baso # (Auto) Seg Neutrophils % Seg Neuts % (Manual) Lymphocytes % (Manual) Nucleated RBC % Seg Neutrophils # Seg Neutrophils # Man Lymphocytes # (Manual) Monocytes # (Manual) PT INR APTT D-Dimer ABG pH POC ABG pCO2 POC ABG pO2 ABG pO2 ABG HCO3 ABG O2 Saturation ABG Base Excess ABG Hemoglobin ABG Oxyhemoglobin ABG Sodium ABG Potassium ABG Chloride ABG Glucose Oxyhemoglobin Sodium Potassium Chloride Carbon Dioxide BUN Creatinine Glucose POC Glucose 198 H 193 H 191 H Lactic Acid Calcium Magnesium Ferritin Total Bilirubin Direct Bilirubin AST ALT Alkaline Phosphatase Lactate Dehydrogenase C-Reactive Protein Total Protein Albumin Triglycerides Arterial Blood Glucose Arterial Blood Ionized Calcium Urine WBC (Auto) Coronavirus (PCR) SARS-CoV-2 IgG Ab Crossmatch 06/26/20 06/27/20 06/27/20 23:40 04:35 05:32 WBC RBC Hgb Hct MCV MCH MCHC RDW Lymph % (Auto) Lymph # (Auto) Butts # (Auto) Baso # (Auto) Seg Neutrophils % Seg Neuts % (Manual) Lymphocytes % (Manual) Nucleated RBC % Seg Neutrophils # Seg Neutrophils # Man Lymphocytes # (Manual) Monocytes # (Manual) PT INR APTT D-Dimer ABG pH 7.464 H POC ABG pCO2 60.8 H POC ABG pO2 ABG pO2 ABG HCO3 ABG O2 Saturation ABG Base Excess ABG Hemoglobin 10.1 L ABG Oxyhemoglobin ABG Sodium ABG Potassium 2.9 L ABG Chloride 92.0 L ABG Glucose 298 H Oxyhemoglobin Sodium Potassium Chloride Carbon Dioxide BUN Creatinine Glucose POC Glucose 241 H 211 H Lactic Acid Calcium Magnesium Ferritin Total Bilirubin Direct Bilirubin AST ALT Alkaline Phosphatase Lactate Dehydrogenase C-Reactive Protein Total Protein Albumin Triglycerides Arterial Blood Glucose 298 H Arterial Blood Ionized Calcium Urine WBC (Auto) Coronavirus (PCR) SARS-CoV-2 IgG Ab Crossmatch 12/06/27/20 06/27/20 12:37 18:08 20:52 WBC RBC Hgb Hct MCV MCH MCHC RDW Lymph % (Auto) Lymph # (Auto) Butts # (Auto) Baso # (Auto) Seg Neutrophils % Seg Neuts % (Manual) Lymphocytes % (Manual) Nucleated RBC % Seg Neutrophils # Seg Neutrophils # Man Lymphocytes # (Manual) Monocytes # (Manual) PT INR APTT D-Dimer ABG pH POC ABG pCO2 POC ABG pO2 ABG pO2 ABG HCO3 ABG O2 Saturation ABG Base Excess ABG Hemoglobin ABG Oxyhemoglobin ABG Sodium ABG Potassium ABG Chloride ABG Glucose Oxyhemoglobin Sodium Potassium Chloride Carbon Dioxide BUN Creatinine Glucose POC Glucose 182 H 197 H 195 H Lactic Acid Calcium Magnesium Ferritin Total Bilirubin Direct Bilirubin AST ALT Alkaline Phosphatase Lactate Dehydrogenase C-Reactive Protein Total Protein Albumin Triglycerides Arterial Blood Glucose Arterial Blood Ionized Calcium Urine WBC (Auto) Coronavirus (PCR) SARS-CoV-2 IgG Ab Crossmatch 06/27/20 06/28/20 06/28/20 Unknown 04:17 04:50 WBC RBC Hgb Hct MCV MCH MCHC RDW Lymph % (Auto) Lymph # (Auto) Butts # (Auto) Baso # (Auto) Seg Neutrophils % Seg Neuts % (Manual) Lymphocytes % (Manual) Nucleated RBC % Seg Neutrophils # Seg Neutrophils # Man Lymphocytes # (Manual) Monocytes # (Manual) PT INR APTT D-Dimer ABG pH POC ABG pCO2 58.6 H POC ABG pO2 60.1 L ABG pO2 ABG HCO3 ABG O2 Saturation ABG Base Excess ABG Hemoglobin 10.0 L ABG Oxyhemoglobin ABG Sodium 125.3 L ABG Potassium ABG Chloride 93.0 L ABG Glucose 308 H Oxyhemoglobin Sodium Potassium 2.9 L* Chloride 93.4 L Carbon Dioxide 42 H* BUN Creatinine 0.3 L Glucose 211 H POC Glucose 252 H Lactic Acid Calcium 8.1 L Magnesium Ferritin Total Bilirubin Direct Bilirubin AST ALT Alkaline Phosphatase Lactate Dehydrogenase C-Reactive Protein Total Protein 5.1 L Albumin 2.4 L Triglycerides Arterial Blood Glucose 308 H Arterial Blood Ionized Calcium Urine WBC (Auto) Coronavirus (PCR) SARS-CoV-2 IgG Ab Crossmatch 06/28/20 06/28/20 06/28/20 06:35 06:35 11:36 WBC 18.9 H RBC 2.85 L Hgb 9.5 L Hct 28.4 L MCV 100 H MCH 33 H MCHC RDW 17.3 H Lymph % (Auto) Lymph # (Auto) Butts # (Auto) Baso # (Auto) Seg Neutrophils % 88.6 H Seg Neuts % (Manual) 95.0 H Lymphocytes % (Manual) 1.0 L Nucleated RBC % Seg Neutrophils # 15.9 H Seg Neutrophils # Man 18.0 H Lymphocytes # (Manual) 0.2 L Monocytes # (Manual) PT INR APTT D-Dimer ABG pH POC ABG pCO2 POC ABG pO2 ABG pO2 ABG HCO3 ABG O2 Saturation ABG Base Excess ABG Hemoglobin ABG Oxyhemoglobin ABG Sodium ABG Potassium ABG Chloride ABG Glucose Oxyhemoglobin Sodium Potassium Chloride 94.2 L Carbon Dioxide 38 H BUN Creatinine 0.3 L Glucose 228 H POC Glucose 243 H Lactic Acid Calcium Magnesium Ferritin Total Bilirubin Direct Bilirubin AST ALT Alkaline Phosphatase Lactate Dehydrogenase C-Reactive Protein Total Protein 6.1 L Albumin 2.7 L Triglycerides Arterial Blood Glucose Arterial Blood Ionized Calcium Urine WBC (Auto) Coronavirus (PCR) SARS-CoV-2 IgG Ab Crossmatch 06/28/20 06/28/20 06/29/20 16:53 21:10 00:06 WBC RBC Hgb Hct MCV MCH MCHC RDW Lymph % (Auto) Lymph # (Auto) Butts # (Auto) Baso # (Auto) Seg Neutrophils % Seg Neuts % (Manual) Lymphocytes % (Manual) Nucleated RBC % Seg Neutrophils # Seg Neutrophils # Man Lymphocytes # (Manual) Monocytes # (Manual) PT INR APTT D-Dimer ABG pH POC ABG pCO2 POC ABG pO2 ABG pO2 ABG HCO3 ABG O2 Saturation ABG Base Excess ABG Hemoglobin ABG Oxyhemoglobin ABG Sodium ABG Potassium ABG Chloride ABG Glucose Oxyhemoglobin Sodium Potassium Chloride Carbon Dioxide BUN Creatinine Glucose POC Glucose 211 H 195 H 200 H Lactic Acid Calcium Magnesium Ferritin Total Bilirubin Direct Bilirubin AST ALT Alkaline Phosphatase Lactate Dehydrogenase C-Reactive Protein Total Protein Albumin Triglycerides Arterial Blood Glucose Arterial Blood Ionized Calcium Urine WBC (Auto) Coronavirus (PCR) SARS-CoV-2 IgG Ab Crossmatch 06/29/20 06/29/20 06/29/20 03:11 04:00 04:00 WBC 18.8 H RBC 2.82 L Hgb 10.1 L Hct 28.5 L MCV 101 H MCH 36 H MCHC 36 H RDW 17.5 H Lymph % (Auto) 10.7 L Lymph # (Auto) Butts # (Auto) 1.0 H Baso # (Auto) 0.3 H Seg Neutrophils % 82.2 H Seg Neuts % (Manual) Lymphocytes % (Manual) Nucleated RBC % Seg Neutrophils # 15.5 H Seg Neutrophils # Man Lymphocytes # (Manual) Monocytes # (Manual) PT INR APTT D-Dimer ABG pH POC ABG pCO2 57.5 H POC ABG pO2 69.1 L ABG pO2 ABG HCO3 ABG O2 Saturation ABG Base Excess ABG Hemoglobin 10.2 L ABG Oxyhemoglobin 92.3 L ABG Sodium 130.7 L ABG Potassium 3.2 L ABG Chloride 93.0 L ABG Glucose 228 H Oxyhemoglobin Sodium 134 L Potassium 3.3 L Chloride 89.5 L Carbon Dioxide 40 H BUN Creatinine 0.2 L Glucose 190 H POC Glucose Lactic Acid Calcium Magnesium Ferritin Total Bilirubin Direct Bilirubin AST < 5 L ALT < 5 L Alkaline Phosphatase Lactate Dehydrogenase C-Reactive Protein Total Protein 5.9 L Albumin 2.2 L Triglycerides Arterial Blood Glucose 228 H Arterial Blood Ionized Calcium Urine WBC (Auto) Coronavirus (PCR) SARS-CoV-2 IgG Ab Crossmatch 06/29/20 06/29/20 06/29/20 05:00 05:23 09:36 WBC RBC Hgb Hct MCV MCH MCHC RDW Lymph % (Auto) Lymph # (Auto) Butts # (Auto) Baso # (Auto) Seg Neutrophils % Seg Neuts % (Manual) Lymphocytes % (Manual) Nucleated RBC % Seg Neutrophils # Seg Neutrophils # Man Lymphocytes # (Manual) Monocytes # (Manual) PT INR APTT D-Dimer ABG pH POC ABG pCO2 POC ABG pO2 ABG pO2 ABG HCO3 ABG O2 Saturation ABG Base Excess ABG Hemoglobin ABG Oxyhemoglobin ABG Sodium ABG Potassium ABG Chloride ABG Glucose Oxyhemoglobin Sodium Potassium Chloride Carbon Dioxide BUN Creatinine Glucose POC Glucose 165 H Lactic Acid Calcium Magnesium Ferritin Total Bilirubin Direct Bilirubin AST ALT Alkaline Phosphatase Lactate Dehydrogenase C-Reactive Protein Total Protein Albumin Triglycerides 1544 H 1799 H Arterial Blood Glucose Arterial Blood Ionized Calcium Urine WBC (Auto) Coronavirus (PCR) SARS-CoV-2 IgG Ab Crossmatch 06/29/20 12:02 WBC RBC Hgb Hct MCV MCH MCHC RDW Lymph % (Auto) Lymph # (Auto) Butts # (Auto) Baso # (Auto) Seg Neutrophils % Seg Neuts % (Manual) Lymphocytes % (Manual) Nucleated RBC % Seg Neutrophils # Seg Neutrophils # Man Lymphocytes # (Manual) Monocytes # (Manual) PT INR APTT D-Dimer ABG pH POC ABG pCO2 POC ABG pO2 ABG pO2 ABG HCO3 ABG O2 Saturation ABG Base Excess ABG Hemoglobin ABG Oxyhemoglobin ABG Sodium ABG Potassium ABG Chloride ABG Glucose Oxyhemoglobin Sodium Potassium Chloride Carbon Dioxide BUN Creatinine Glucose POC Glucose 197 H Lactic Acid Calcium Magnesium Ferritin Total Bilirubin Direct Bilirubin AST ALT Alkaline Phosphatase Lactate Dehydrogenase C-Reactive Protein Total Protein Albumin Triglycerides Arterial Blood Glucose Arterial Blood Ionized Calcium Urine WBC (Auto) Coronavirus (PCR) SARS-CoV-2 IgG Ab Crossmatch Chest x-ray: pending Allied health notes reviewed: nursing
[2020-06-29] MEDS: INSULIN GLARGINE 100 UNITS/ML SUB-Q SCH (21:42)
[2020-06-30] MEDS: MIDAZOLAM 100 MG in SODIUM CHLORIDE 0.9% 80 ML IV SCH ×2 (00:19→19:27)
[2020-06-30] MEDS: fentaNYL DRIP Premix 2,000 MCG/100 ML BAG IV SCH ×5 (01:03→20:02)
[2020-06-30] MEDS: INSULIN LISPRO 100 UNIT/ML VIAL 3 mL SUB-Q SCH ×4 (01:04→17:58)
[2020-06-30] MEDS: methylPREDNISolone Sod Succinate 40 MG/1 ML INJ IV SCH ×2 (06:04→17:59)
[2020-06-30] MEDS: PHENobarbital 20 MG/5 ML ORAL LIQD FEEDTUBE SCH ×3 (06:04→21:37)
[2020-06-30 07:23] LABS: Hematocrit 29.7 % (35.5-45.6); Hemoglobin 9.8 gm/dl (11.8-15.2); Mean Corpuscular HGB Conc 33 % (32-34); Mean Corpuscular Volume 102 fl (84-94); Platelet Count 353 K/mm3 (140-440); Red Blood Count 2.91 M/mm3 (3.65-5.03); Red Cell Distribution Width 17.8 % (13.2-15.2)
[2020-06-30 07:38] LABS: Alanine Aminotransferase 30 units/L (7-56); Albumin 2.8 g/dL (3.9-5); Blood Urea Nitrogen 14 mg/dL (9-20); Calcium 8.8 mg/dL (8.4-10.2); Hemolysis Index 9
[2020-06-30 07:45] LABS: BUN/Creatinine Ratio 47
[2020-06-30] MEDS: QUEtiapine 100 MG TAB PO SCH ×3 (09:05→20:03)
[2020-06-30] MEDS: DOCUSATE SODIUM 100 MG/10 ML ORAL LIQD PO SCH ×2 (09:15→21:36)
[2020-06-30] MEDS: SENNOSIDES 8.6 MG TAB PO SCH ×2 (09:15→21:37)
[2020-06-30] MEDS: LANSOPRAZOLE 30 MG SOLUTAB FEEDTUBE SCH (09:16)
[2020-06-30] MEDS: FOLIC ACID 1 MG TAB PO SCH (09:16)
[2020-06-30] MEDS: NORepinephrine/NS 4 MG-250 ML 4 MG/250 ML BAG IV SCH (09:27)
[2020-06-30 12:27] LABS: Total Cells Counted 100
[2020-06-30 12:28] LABS: Anisocytosis 1+
[2020-06-30 12:29] LABS: Platelet Estimate Consistent w Auto; Poikilocytosis Few
--- NOTE | 2020-06-30 12:56 | Progress Note ---
Assessment and Plan Acute hypoxemic respiratory failure due to COVID-19 Severe Sepsis Bilateral pneumonia Acute kidney injury (SEN) with acute tubular necrosis (ATN) Alcohol dependence Elevated liver function tests - continue Seroquel to 300 mg po tid - continue Precedex - trend lipid level - lipase level mildly elevated; will trend - prn 12 lead EKG to monitor QT - continue midodrine re: hypotension - keep peep at 8 - continue bid protonix - continue full anticoagulation for now and trend H&H - continue care as below otherwise; - continue bowel regimen - continue to wean supplemental oxygen for target O2 sat's > 92% acutely - continue to wean Levophed for target MAP > 65 mmHg - tracheostomy placement once oxygenation better / more hemodynamically stable - he will need a tracheostomy once numbers better - continue Daily SAT and SBT assessment as tolerated - VAP bundle addressed - continue lung protective strategies - continue bronchodilators with pulmonary hygiene per RT - wean per pulmonary driven protocols otherwise - accuchecks with glycemic control per SSI (While critically ill target blood glucose of 140-180 mg/dL; avoid hypoglycemia) - sedation prn for target RASS -1 to -2 - continue enteral nutritional support at goal rate as tolerated - continue airborne and contact isolation - follow repeat COVID-19 testing - continue Zinc & Vit C supplementaion - continue systemic steroids for Asthma / severe COVID infection - Prone positioning as tolerated - continue empiric full dose anticoagulation re: elevated d-dimers / hypercoagulable state - NOT a candidate for COVID convalescent plasma - continue systemic steroids X >/= 10 days - completed remdesivir dosing (total 5 days) - empiric AB's coverage per ID rec's - accuchecks with glycemic control per SSI (While critically ill target blood glucose of 140-180 mg/dL; avoid hypoglycemia) - avoid nephrotoxins, renally dose all medications - continue to avoid benzodiazepine's, reduce the possibility of delirium - continue wound care per RN / WCN - prn analgesia per CPOT score - Maintenance of sleep-wake cycle, avoid delirium - continue to avoid benzodiazepine's, reduce the possibility of delirium - aspiration precautions - G.I. & VTE prophylaxis - PT/OT/ROM exercises - continue mobility protocols for pressure ulcer prophylaxis - Monitor hemodynamics closely - continue other care per attending / other consultants - discharge planning ongoing concurrently .... Re-evaluate in am & prn CONDITION: CRITICAL PROGNOSIS: GUARDED CODE STATUS: FULL CODE The high probability of a clinically significant, sudden or life-threatening deterioration of the [respiratory, cardiovascular, hematologic & neurologic] system(s) required my full and direct attention, intervention and personal management. The aggregate critical care time was [32] minutes without overlap. Time includes spent on; [x] Data Review and interpretation [x] Patient assessment and monitoring of vital signs [x] Documentation [x] Medication orders and management Subjective Date of service: 06/30/20 Principal diagnosis: Ac hypoxemic resp failure; COVID-19; Severe Sepsis; Shaggy PNA; Alcohol Abuse Interval history: Patient is seen today for: Acute hypoxemic respiratory failure due to COVID-19; Severe Sepsis; Bilateral pneumonia; Alcohol dependence; Elevated liver function tests Seen and examined at bedside; 24hour events reviewed; nursing and respiratory care staff consulted; no adverse overnight events reported to me; resting in bed; remains on MVS; weaning off propofol; no significant arrhythmia's; no emesi s or overt aspiration; remains on Levophed drip Objective Vital Signs - 12hr 06/30/20 06/30/20 06/30/20 01:00 01:15 01:30 Temperature Pulse Rate 89 87 87 Pulse Rate [ From Monitor] Respiratory 30 H 30 H 30 H Rate Respiratory Rate [ Generalized] Blood Pressure 105/65 103/64 110/67 O2 Sat by Pulse 97 97 97 Oximetry 06/30/20 06/30/20 06/30/20 01:45 02:00 02:15 Temperature Pulse Rate 87 86 86 Pulse Rate [ From Monitor] Respiratory 30 H 30 H 30 H Rate Respiratory Rate [ Generalized] Blood Pressure 110/71 113/70 116/69 O2 Sat by Pulse 95 96 96 Oximetry 06/30/20 06/30/20 06/30/20 02:30 02:45 03:00 Temperature Pulse Rate 88 88 86 Pulse Rate [ From Monitor] Respiratory 30 H 30 H 30 H Rate Respiratory Rate [ Generalized] Blood Pressure 113/67 112/68 113/70 O2 Sat by Pulse 95 95 95 Oximetry 06/30/20 06/30/20 06/30/20 03:15 03:30 03:45 Temperature Pulse Rate 86 86 85 Pulse Rate [ From Monitor] Respiratory 17 30 H 30 H Rate Respiratory Rate [ Generalized] Blood Pressure 103/70 111/64 117/68 O2 Sat by Pulse 96 94 96 Oximetry 06/30/20 06/30/20 06/30/20 04:00 04:08 04:15 Temperature 98.1 F Pulse Rate 84 85 86 Pulse Rate [ 86 From Monitor] Respiratory 30 H 30 H Rate Respiratory Rate [ Generalized] Blood Pressure 108/64 108/64 108/62 O2 Sat by Pulse 94 94 93 Oximetry 06/30/20 06/30/20 06/30/20 04:30 04:45 05:00 Temperature Pulse Rate 88 87 87 Pulse Rate [ From Monitor] Respiratory 30 H 30 H 30 H Rate Respiratory Rate [ Generalized] Blood Pressure 114/66 121/70 117/69 O2 Sat by Pulse 94 92 Oximetry 06/30/20 06/30/20 06/30/20 05:15 05:30 05:45 Temperature Pulse Rate 86 87 88 Pulse Rate [ From Monitor] Respiratory 30 H 30 H 30 H Rate Respiratory Rate [ Generalized] Blood Pressure 118/70 115/64 110/68 O2 Sat by Pulse Oximetry 06/30/20 06/30/20 06/30/20 06:00 06:15 06:31 Temperature Pulse Rate 84 85 113 H Pulse Rate [ From Monitor] Respiratory 30 H 30 H 29 H Rate Respiratory Rate [ Generalized] Blood Pressure 103/73 105/69 165/94 O2 Sat by Pulse 94 88 Oximetry 06/30/20 06/30/20 06/30/20 06:45 07:00 07:05 Temperature Pulse Rate 123 H 125 H 86 Pulse Rate [ From Monitor] Respiratory 35 H 25 H Rate Respiratory Rate [ Generalized] Blood Pressure 137/87 148/91 142/102 O2 Sat by Pulse 100 98 92 Oximetry 06/30/20 06/30/20 06/30/20 07:15 07:30 07:45 Temperature Pulse Rate 122 H 118 H 110 H Pulse Rate [ From Monitor] Respiratory 38 H 26 H 21 Rate Respiratory Rate [ Generalized] Blood Pressure 109/91 113/82 113/73 O2 Sat by Pulse 99 100 99 Oximetry 06/30/20 06/30/20 06/30/20 08:00 08:15 08:30 Temperature 99.7 F H Pulse Rate 131 H 126 H 140 H Pulse Rate [ 86 From Monitor] Respiratory 19 21 32 H Rate Respiratory Rate [ Generalized] Blood Pressure 105/74 113/82 143/99 O2 Sat by Pulse 100 100 98 Oximetry 12/06/30/20 06/30/20 08:45 09:00 09:15 Temperature Pulse Rate 127 H 127 H 131 H Pulse Rate [ From Monitor] Respiratory 30 H 21 22 Rate Respiratory Rate [ Generalized] Blood Pressure 152/101 147/95 134/80 O2 Sat by Pulse 99 100 88 Oximetry 06/30/20 06/30/20 06/30/20 09:30 09:45 10:00 Temperature Pulse Rate 134 H 131 H 136 H Pulse Rate [ From Monitor] Respiratory 26 H 22 29 H Rate Respiratory 30 H Rate [ Generalized] Blood Pressure 118/73 110/68 124/67 O2 Sat by Pulse 91 89 89 Oximetry 06/30/20 06/30/20 06/30/20 10:15 10:30 10:45 Temperature Pulse Rate 129 H 136 H 148 H Pulse Rate [ From Monitor] Respiratory 32 H 40 H 29 H Rate Respiratory Rate [ Generalized] Blood Pressure 120/60 118/81 124/88 O2 Sat by Pulse 91 93 91 Oximetry 06/30/20 06/30/20 06/30/20 11:00 11:01 11:15 Temperature Pulse Rate 135 H 129 H Pulse Rate [ From Monitor] Respiratory 39 H 34 H Rate Respiratory Rate [ Generalized] Blood Pressure 132/81 132/81 110/68 O2 Sat by Pulse 90 96 92 Oximetry 06/30/20 06/30/20 06/30/20 11:31 11:45 12:00 Temperature Pulse Rate 124 H 112 H 88 Pulse Rate [ From Monitor] Respiratory 13 30 H 30 H Rate Respiratory Rate [ Generalized] Blood Pressure 95/68 95/49 94/51 O2 Sat by Pulse 93 95 97 Oximetry 06/30/20 12:15 Temperature Pulse Rate 88 Pulse Rate [ From Monitor] Respiratory 31 H Rate Respiratory Rate [ Generalized] Blood Pressure 87/63 O2 Sat by Pulse Oximetry Constitutional: appears uncomfortable, other (middle aged obese male with mildly increased respiratory effort at rest on MVS) Eyes: non-icteric ENT: oropharynx moist, other (ETT 24 cm CHILO) Neck: supple, no JVD Effort: mildly labored Ascultation: Bilateral: diminished breath sounds, rhonchi (scant), other (right chest tube) Percussion: Bilateral: not dull Cardiovascular: regular rate and rhythm, other (No R/M) Gastrointestinal: normoactive bowel sounds, soft, non-tender, other (distended and firm) Integumentary: normal Extremities: no cyanosis, no edema, pulses normal, no ischemia or petechiae Neurologic: pupils equal and round, CN II-XII normal, other (unable top assess re: AMS / sedation) Psychiatric: other (sedated) CBC and BMP: 07/02/20 16:08 07/02/20 16:08 ABG, PT/INR, D-dimer: ABG ABG pH 7.466 (7.320-7.450) H 06/30/20 03:46 POC ABG pCO2 57.3 mmHg (32.0-48.0) H 06/30/20 03:46 ABG pCO2 69.8 mm Hg 06/22/20 03:50 POC ABG pO2 66.1 mmHg (83-108) L 06/30/20 03:46 ABG pO2 89.6 mm Hg (80.0-90.0) 06/22/20 03:50 POC ABG HCO3 40.4 06/30/20 03:46 ABG O2 Saturation 97.1 % (95.0-99.0) 06/22/20 03:50 PT/INR, D-dimer PT 11.8 Sec. (12.2-14.9) L 06/22/20 14:29 INR 0.88 (0.87-1.13) 06/22/20 14:29 D-Dimer 1887.82 ng/mlDDU (0-234) H 05/20/20 08:16 Abnormal lab findings: Abnormal Labs 05/09/20 05/09/20 05/09/20 12:59 12:59 12:59 WBC 11.8 H RBC Hgb Hct MCV 96 H MCH 34 H MCHC 35 H RDW Lymph % (Auto) 6.9 L Lymph # (Auto) 0.8 L [place] # (Auto) Baso # (Auto) Seg Neutrophils % 87.5 H Seg Neuts % (Manual) Lymphocytes % (Manual) Nucleated RBC % Seg Neutrophils # 10.3 H Seg Neutrophils # Man Lymphocytes # (Manual) Monocytes # (Manual) PT INR APTT D-Dimer ABG pH POC ABG pCO2 POC ABG pO2 ABG pO2 ABG HCO3 ABG O2 Saturation ABG Base Excess ABG Hemoglobin ABG Oxyhemoglobin ABG Sodium ABG Potassium ABG Chloride ABG Glucose Oxyhemoglobin Sodium 130 L Potassium 3.5 L Chloride 86.4 L Carbon Dioxide BUN 33 H Creatinine 2.3 H Glucose 156 H POC Glucose Lactic Acid Calcium Magnesium Ferritin Total Bilirubin 3.40 H Direct Bilirubin 1.7 H AST 385 H ALT 134 H Alkaline Phosphatase Lactate Dehydrogenase C-Reactive Protein Total Protein Albumin 3.0 L Triglycerides Lipase Arterial Blood Glucose Arterial Blood Ionized Calcium Urine WBC (Auto) Coronavirus (PCR) SARS-CoV-2 IgG Ab Crossmatch 05/09/20 05/09/20 05/09/20 12:59 12:59 12:59 WBC RBC Hgb Hct MCV MCH MCHC RDW Lymph % (Auto) Lymph # (Auto) [place] # (Auto) Baso # (Auto) Seg Neutrophils % Seg Neuts % (Manual) Lymphocytes % (Manual) Nucleated RBC % Seg Neutrophils # Seg Neutrophils # Man Lymphocytes # (Manual) Monocytes # (Manual) PT INR APTT D-Dimer 3242.51 H ABG pH POC ABG pCO2 POC ABG pO2 ABG pO2 ABG HCO3 ABG O2 Saturation ABG Base Excess ABG Hemoglobin ABG Oxyhemoglobin ABG Sodium ABG Potassium ABG Chloride ABG Glucose Oxyhemoglobin Sodium Potassium Chloride Carbon Dioxide BUN Creatinine Glucose 158 H POC Glucose Lactic Acid 3.50 H* Calcium Magnesium Ferritin Total Bilirubin Direct Bilirubin AST ALT Alkaline Phosphatase Lactate Dehydrogenase 2166 H C-Reactive Protein 39.00 H Total Protein Albumin Triglycerides Lipase Arterial Blood Glucose Arterial Blood Ionized Calcium Urine WBC (Auto) Coronavirus (PCR) SARS-CoV-2 IgG Ab Crossmatch 05/09/20 05/09/20 05/09/20 12:59 14:20 14:20 WBC RBC Hgb Hct MCV MCH MCHC RDW Lymph % (Auto) Lymph # (Auto) [place] # (Auto) Baso # (Auto) Seg Neutrophils % Seg Neuts % (Manual) Lymphocytes % (Manual) Nucleated RBC % Seg Neutrophils # Seg Neutrophils # Man Lymphocytes # (Manual) Monocytes # (Manual) PT INR APTT D-Dimer 2861.78 H ABG pH POC ABG pCO2 POC ABG pO2 ABG pO2 ABG HCO3 ABG O2 Saturation ABG Base Excess ABG Hemoglobin ABG Oxyhemoglobin ABG Sodium ABG Potassium ABG Chloride ABG Glucose Oxyhemoglobin Sodium Potassium Chloride Carbon Dioxide BUN Creatinine Glucose POC Glucose Lactic Acid 2.20 H* Calcium Magnesium Ferritin 99677.0 H Total Bilirubin Direct Bilirubin AST ALT Alkaline Phosphatase Lactate Dehydrogenase C-Reactive Protein Total Protein Albumin Triglycerides Lipase Arterial Blood Glucose Arterial Blood Ionized Calcium Urine WBC (Auto) Coronavirus (PCR) SARS-CoV-2 IgG Ab Crossmatch 05/09/20 05/09/20 05/09/20 14:20 14:20 15:56 WBC RBC Hgb Hct MCV MCH MCHC RDW Lymph % (Auto) Lymph # (Auto) [place] # (Auto) Baso # (Auto) Seg Neutrophils % Seg Neuts % (Manual) Lymphocytes % (Manual) Nucleated RBC % Seg Neutrophils # Seg Neutrophils # Man Lymphocytes # (Manual) Monocytes # (Manual) PT INR APTT D-Dimer ABG pH POC ABG pCO2 POC ABG pO2 57.3 L ABG pO2 ABG HCO3 ABG O2 Saturation ABG Base Excess ABG Hemoglobin ABG Oxyhemoglobin 86.3 L ABG Sodium 129.9 L ABG Potassium ABG Chloride ABG Glucose 146 H Oxyhemoglobin Sodium Potassium Chloride Carbon Dioxide BUN Creatinine Glucose 143 H POC Glucose Lactic Acid Calcium Magnesium Ferritin 38249.0 H Total Bilirubin Direct Bilirubin AST ALT Alkaline Phosphatase Lactate Dehydrogenase 1953 H C-Reactive Protein 33.50 H Total Protein Albumin Triglycerides Lipase Arterial Blood Glucose 146 H Arterial Blood Ionized Calcium 3.9 L Urine WBC (Auto) Coronavirus (PCR) SARS-CoV-2 IgG Ab Crossmatch 05/10/20 05/10/20 05/10/20 10:32 10:32 18:50 WBC 15.4 H RBC Hgb Hct MCV 97 H MCH 33 H MCHC RDW 13.1 L Lymph % (Auto) Lymph # (Auto) [place] # (Auto) Baso # (Auto) Seg Neutrophils % Seg Neuts % (Manual) 89.0 H Lymphocytes % (Manual) 8.0 L Nucleated RBC % Seg Neutrophils # Seg Neutrophils # Man 13.7 H Lymphocytes # (Manual) Monocytes # (Manual) PT INR APTT D-Dimer ABG pH POC ABG pCO2 POC ABG pO2 ABG pO2 ABG HCO3 ABG O2 Saturation ABG Base Excess ABG Hemoglobin ABG Oxyhemoglobin ABG Sodium ABG Potassium ABG Chloride ABG Glucose Oxyhemoglobin Sodium 136 L Potassium Chloride 97.4 L Carbon Dioxide BUN 37 H Creatinine 1.7 H Glucose 209 H POC Glucose Lactic Acid Calcium Magnesium Ferritin > 2000.0 H Total Bilirubin Direct Bilirubin AST ALT Alkaline Phosphatase Lactate Dehydrogenase C-Reactive Protein Total Protein Albumin Triglycerides Lipase Arterial Blood Glucose Arterial Blood Ionized Calcium Urine WBC (Auto) Coronavirus (PCR) SARS-CoV-2 IgG Ab Crossmatch 05/10/20 05/10/20 05/10/20 18:50 19:00 Unknown WBC RBC Hgb Hct MCV MCH MCHC RDW Lymph % (Auto) Lymph # (Auto) [place] # (Auto) Baso # (Auto) Seg Neutrophils % Seg Neuts % (Manual) Lymphocytes % (Manual) Nucleated RBC % Seg Neutrophils # Seg Neutrophils # Man Lymphocytes # (Manual) Monocytes # (Manual) PT INR APTT D-Dimer > 29099 H ABG pH POC ABG pCO2 POC ABG pO2 ABG pO2 ABG HCO3 ABG O2 Saturation ABG Base Excess ABG Hemoglobin ABG Oxyhemoglobin ABG Sodium ABG Potassium ABG Chloride ABG Glucose Oxyhemoglobin Sodium Potassium Chloride Carbon Dioxide BUN Creatinine Glucose POC Glucose Lactic Acid Calcium Magnesium Ferritin Total Bilirubin Direct Bilirubin AST ALT Alkaline Phosphatase Lactate Dehydrogenase 1879 H C-Reactive Protein 24.80 H Total Protein Albumin Triglycerides Lipase Arterial Blood Glucose Arterial Blood Ionized Calcium Urine WBC (Auto) 11.0 H Coronavirus (PCR) SARS-CoV-2 IgG Ab Crossmatch 05/10/20 05/11/20 05/11/20 Unknown 07:30 07:30 WBC RBC Hgb Hct MCV MCH MCHC RDW Lymph % (Auto) Lymph # (Auto) [place] # (Auto) Baso # (Auto) Seg Neutrophils % Seg Neuts % (Manual) Lymphocytes % (Manual) Nucleated RBC % Seg Neutrophils # Seg Neutrophils # Man Lymphocytes # (Manual) Monocytes # (Manual) PT INR APTT D-Dimer > 2000 H ABG pH POC ABG pCO2 POC ABG pO2 ABG pO2 ABG HCO3 ABG O2 Saturation ABG Base Excess ABG Hemoglobin ABG Oxyhemoglobin ABG Sodium ABG Potassium ABG Chloride ABG Glucose Oxyhemoglobin Sodium Potassium Chloride 96.3 L Carbon Dioxide BUN 36 H Creatinine Glucose 161 H POC Glucose Lactic Acid Calcium 8.3 L Magnesium Ferritin Total Bilirubin 1.50 H Direct Bilirubin 0.6 H AST 178 H ALT 111 H Alkaline Phosphatase Lactate Dehydrogenase C-Reactive Protein Total Protein Albumin 3.0 L Triglycerides Lipase Arterial Blood Glucose Arterial Blood Ionized Calcium Urine WBC (Auto) Coronavirus (PCR) Positive A SARS-CoV-2 IgG Ab Crossmatch 05/11/20 05/11/20 05/11/20 07:30 07:30 07:30 WBC RBC Hgb Hct MCV MCH MCHC RDW Lymph % (Auto) Lymph # (Auto) [place] # (Auto) Baso # (Auto) Seg Neutrophils % Seg Neuts % (Manual) Lymphocytes % (Manual) Nucleated RBC % Seg Neutrophils # Seg Neutrophils # Man Lymphocytes # (Manual) Monocytes # (Manual) PT INR APTT D-Dimer ABG pH POC ABG pCO2 POC ABG pO2 ABG pO2 ABG HCO3 ABG O2 Saturation ABG Base Excess ABG Hemoglobin ABG Oxyhemoglobin ABG Sodium ABG Potassium ABG Chloride ABG Glucose Oxyhemoglobin Sodium Potassium Chloride Carbon Dioxide BUN Creatinine Glucose POC Glucose Lactic Acid Calcium Magnesium Ferritin 20025.0 H Total Bilirubin Direct Bilirubin AST ALT Alkaline Phosphatase Lactate Dehydrogenase 1523 H C-Reactive Protein 12.90 H Total Protein Albumin Triglycerides Lipase Arterial Blood Glucose Arterial Blood Ionized Calcium Urine WBC (Auto) Coronavirus (PCR) SARS-CoV-2 IgG Ab Reactive A Crossmatch 05/13/20 05/13/20 05/15/20 05:20 05:20 08:15 WBC RBC Hgb Hct MCV MCH MCHC RDW Lymph % (Auto) Lymph # (Auto) [place] # (Auto) Baso # (Auto) Seg Neutrophils % Seg Neuts % (Manual) Lymphocytes % (Manual) Nucleated RBC % Seg Neutrophils # Seg Neutrophils # Man Lymphocytes # (Manual) Monocytes # (Manual) PT INR APTT D-Dimer > 34526 H 5318.28 H ABG pH POC ABG pCO2 POC ABG pO2 ABG pO2 ABG HCO3 ABG O2 Saturation ABG Base Excess ABG Hemoglobin ABG Oxyhemoglobin ABG Sodium ABG Potassium ABG Chloride ABG Glucose Oxyhemoglobin Sodium Potassium Chloride Carbon Dioxide 32 H BUN 30 H Creatinine Glucose 156 H POC Glucose Lactic Acid Calcium Magnesium 2.60 H Ferritin Total Bilirubin 1.40 H Direct Bilirubin AST 121 H ALT 119 H Alkaline Phosphatase Lactate Dehydrogenase 957 H C-Reactive Protein 4.00 H Total Protein Albumin 3.0 L Triglycerides Lipase Arterial Blood Glucose Arterial Blood Ionized Calcium Urine WBC (Auto) Coronavirus (PCR) SARS-CoV-2 IgG Ab Crossmatch 05/15/20 05/15/20 05/15/20 08:15 08:15 08:15 WBC 12.4 H RBC Hgb Hct MCV 98 H MCH 33 H MCHC RDW Lymph % (Auto) 9.7 L Lymph # (Auto) [place] # (Auto) Baso # (Auto) Seg Neutrophils % 86.8 H Seg Neuts % (Manual) Lymphocytes % (Manual) Nucleated RBC % Seg Neutrophils # 10.8 H Seg Neutrophils # Man Lymphocytes # (Manual) Monocytes # (Manual) PT INR APTT D-Dimer ABG pH POC ABG pCO2 POC ABG pO2 ABG pO2 ABG HCO3 ABG O2 Saturation ABG Base Excess ABG Hemoglobin ABG Oxyhemoglobin ABG Sodium ABG Potassium ABG Chloride ABG Glucose Oxyhemoglobin Sodium Potassium Chloride 94.8 L Carbon Dioxide 32 H BUN 22 H Creatinine Glucose 115 H POC Glucose Lactic Acid Calcium 8.3 L Magnesium Ferritin 2494.0 H Total Bilirubin Direct Bilirubin AST 73 H ALT 121 H Alkaline Phosphatase Lactate Dehydrogenase 835 H C-Reactive Protein 3.40 H Total Protein 6.1 L Albumin 3.0 L Triglycerides Lipase Arterial Blood Glucose Arterial Blood Ionized Calcium Urine WBC (Auto) Coronavirus (PCR) SARS-CoV-2 IgG Ab Crossmatch 05/17/20 05/17/20 05/17/20 05:50 05:50 05:50 WBC RBC Hgb Hct MCV MCH MCHC RDW Lymph % (Auto) Lymph # (Auto) [place] # (Auto) Baso # (Auto) Seg Neutrophils % Seg Neuts % (Manual) Lymphocytes % (Manual) Nucleated RBC % Seg Neutrophils # Seg Neutrophils # Man Lymphocytes # (Manual) Monocytes # (Manual) PT INR APTT D-Dimer 2911.42 H ABG pH POC ABG pCO2 POC ABG pO2 ABG pO2 ABG HCO3 ABG O2 Saturation ABG Base Excess ABG Hemoglobin ABG Oxyhemoglobin ABG Sodium ABG Potassium ABG Chloride ABG Glucose Oxyhemoglobin Sodium 136 L Potassium Chloride 96.0 L Carbon Dioxide 34 H BUN 22 H Creatinine Glucose 140 H POC Glucose Lactic Acid Calcium Magnesium Ferritin 2082.0 H Total Bilirubin Direct Bilirubin AST ALT 75 H Alkaline Phosphatase Lactate Dehydrogenase 601 H C-Reactive Protein 2.70 H Total Protein Albumin 2.9 L Triglycerides Lipase Arterial Blood Glucose Arterial Blood Ionized Calcium Urine WBC (Auto) Coronavirus (PCR) SARS-CoV-2 IgG Ab Crossmatch 05/17/20 05/18/20 05/20/20 05:50 12:22 08:16 WBC RBC Hgb Hct MCV 98 H MCH 33 H MCHC RDW Lymph % (Auto) 8.0 L Lymph # (Auto) 0.8 L [place] # (Auto) Baso # (Auto) Seg Neutrophils % 89.3 H Seg Neuts % (Manual) Lymphocytes % (Manual) Nucleated RBC % Seg Neutrophils # 8.8 H Seg Neutrophils # Man Lymphocytes # (Manual) Monocytes # (Manual) PT INR APTT D-Dimer 1887.82 H ABG pH POC ABG pCO2 POC ABG pO2 ABG pO2 ABG HCO3 ABG O2 Saturation ABG Base Excess ABG Hemoglobin ABG Oxyhemoglobin ABG Sodium ABG Potassium ABG Chloride ABG Glucose Oxyhemoglobin Sodium Potassium Chloride Carbon Dioxide BUN Creatinine Glucose POC Glucose 178 H Lactic Acid Calcium Magnesium Ferritin Total Bilirubin Direct Bilirubin AST ALT Alkaline Phosphatase Lactate Dehydrogenase C-Reactive Protein Total Protein Albumin Triglycerides Lipase Arterial Blood Glucose Arterial Blood Ionized Calcium Urine WBC (Auto) Coronavirus (PCR) SARS-CoV-2 IgG Ab Crossmatch 05/20/20 05/20/20 05/21/20 08:16 08:16 21:10 WBC RBC Hgb Hct MCV MCH MCHC RDW Lymph % (Auto) Lymph # (Auto) [place] # (Auto) Baso # (Auto) Seg Neutrophils % Seg Neuts % (Manual) Lymphocytes % (Manual) Nucleated RBC % Seg Neutrophils # Seg Neutrophils # Man Lymphocytes # (Manual) Monocytes # (Manual) PT INR APTT D-Dimer ABG pH 7.483 H POC ABG pCO2 POC ABG pO2 ABG pO2 50.0 L ABG HCO3 27.0 H ABG O2 Saturation 86.2 L ABG Base Excess 3.7 H ABG Hemoglobin ABG Oxyhemoglobin ABG Sodium ABG Potassium ABG Chloride ABG Glucose Oxyhemoglobin 84.2 L Sodium Potassium Chloride Carbon Dioxide BUN Creatinine Glucose POC Glucose Lactic Acid Calcium Magnesium Ferritin 1960.0 H Total Bilirubin Direct Bilirubin AST ALT Alkaline Phosphatase Lactate Dehydrogenase 705 H C-Reactive Protein 3.10 H Total Protein Albumin Triglycerides Lipase Arterial Blood Glucose Arterial Blood Ionized Calcium Urine WBC (Auto) Coronavirus (PCR) SARS-CoV-2 IgG Ab Crossmatch 05/22/20 05/22/20 05/22/20 04:01 07:53 07:53 WBC 19.2 H RBC Hgb Hct MCV 98 H MCH 34 H MCHC RDW Lymph % (Auto) Lymph # (Auto) [place] # (Auto) Baso # (Auto) Seg Neutrophils % Seg Neuts % (Manual) 96.0 H Lymphocytes % (Manual) 1.0 L Nucleated RBC % Seg Neutrophils # Seg Neutrophils # Man 18.4 H Lymphocytes # (Manual) 0.2 L Monocytes # (Manual) PT INR APTT D-Dimer ABG pH POC ABG pCO2 53.8 H POC ABG pO2 125.5 H ABG pO2 ABG HCO3 ABG O2 Saturation ABG Base Excess ABG Hemoglobin ABG Oxyhemoglobin ABG Sodium 131.8 L ABG Potassium 4.8 H ABG Chloride 94.0 L ABG Glucose 163 H Oxyhemoglobin Sodium 131 L Potassium Chloride 93.4 L Carbon Dioxide BUN 40 H Creatinine Glucose 176 H POC Glucose Lactic Acid Calcium Magnesium 2.70 H Ferritin Total Bilirubin 1.80 H Direct Bilirubin AST 45 H ALT 116 H Alkaline Phosphatase 181 H Lactate Dehydrogenase C-Reactive Protein Total Protein Albumin 2.6 L Triglycerides Lipase Arterial Blood Glucose 163 H Arterial Blood Ionized Calcium 4.5 L Urine WBC (Auto) Coronavirus (PCR) SARS-CoV-2 IgG Ab Crossmatch 05/23/20 05/24/20 05/24/20 04:17 03:07 04:08 WBC RBC Hgb Hct MCV MCH MCHC RDW Lymph % (Auto) Lymph # (Auto) [place] # (Auto) Baso # (Auto) Seg Neutrophils % Seg Neuts % (Manual) Lymphocytes % (Manual) Nucleated RBC % Seg Neutrophils # Seg Neutrophils # Man Lymphocytes # (Manual) Monocytes # (Manual) PT INR APTT D-Dimer ABG pH 7.328 L POC ABG pCO2 POC ABG pO2 ABG pO2 72.8 L 73.4 L ABG HCO3 31.0 H 34.0 H ABG O2 Saturation 93.5 L ABG Base Excess 3.5 H 7.7 H ABG Hemoglobin 13.3 L 12.1 L ABG Oxyhemoglobin ABG Sodium ABG Potassium ABG Chloride ABG Glucose Oxyhemoglobin 91.5 L 94.3 L Sodium Potassium Chloride Carbon Dioxide BUN Creatinine Glucose POC Glucose 155 H Lactic Acid Calcium Magnesium Ferritin Total Bilirubin Direct Bilirubin AST ALT Alkaline Phosphatase Lactate Dehydrogenase C-Reactive Protein Total Protein Albumin Triglycerides Lipase Arterial Blood Glucose Arterial Blood Ionized Calcium Urine WBC (Auto) Coronavirus (PCR) SARS-CoV-2 IgG Ab Crossmatch 05/24/20 05/24/20 05/24/20 09:33 12:21 17:52 WBC RBC Hgb Hct MCV MCH MCHC RDW Lymph % (Auto) Lymph # (Auto) [place] # (Auto) Baso # (Auto) Seg Neutrophils % Seg Neuts % (Manual) Lymphocytes % (Manual) Nucleated RBC % Seg Neutrophils # Seg Neutrophils # Man Lymphocytes # (Manual) Monocytes # (Manual) PT INR APTT D-Dimer ABG pH POC ABG pCO2 POC ABG pO2 ABG pO2 ABG HCO3 ABG O2 Saturation ABG Base Excess ABG Hemoglobin ABG Oxyhemoglobin ABG Sodium ABG Potassium ABG Chloride ABG Glucose Oxyhemoglobin Sodium Potassium Chloride Carbon Dioxide 34 H D BUN 28 H Creatinine 0.7 L Glucose 168 H POC Glucose 173 H 164 H Lactic Acid Calcium Magnesium Ferritin Total Bilirubin Direct Bilirubin AST ALT Alkaline Phosphatase Lactate Dehydrogenase C-Reactive Protein Total Protein Albumin Triglycerides Lipase Arterial Blood Glucose Arterial Blood Ionized Calcium Urine WBC (Auto) Coronavirus (PCR) SARS-CoV-2 IgG Ab Crossmatch 05/24/20 05/25/20 05/25/20 23:47 04:29 05:46 WBC RBC Hgb Hct MCV MCH MCHC RDW Lymph % (Auto) Lymph # (Auto) [place] # (Auto) Baso # (Auto) Seg Neutrophils % Seg Neuts % (Manual) Lymphocytes % (Manual) Nucleated RBC % Seg Neutrophils # Seg Neutrophils # Man Lymphocytes # (Manual) Monocytes # (Manual) PT INR APTT D-Dimer ABG pH POC ABG pCO2 68.6 H POC ABG pO2 ABG pO2 ABG HCO3 ABG O2 Saturation ABG Base Excess ABG Hemoglobin ABG Oxyhemoglobin ABG Sodium ABG Potassium 4.7 H ABG Chloride ABG Glucose 226 H Oxyhemoglobin Sodium Potassium Chloride Carbon Dioxide BUN Creatinine Glucose POC Glucose 171 H 201 H Lactic Acid Calcium Magnesium Ferritin Total Bilirubin Direct Bilirubin AST ALT Alkaline Phosphatase Lactate Dehydrogenase C-Reactive Protein Total Protein Albumin Triglycerides Lipase Arterial Blood Glucose 226 H Arterial Blood Ionized Calcium Urine WBC (Auto) Coronavirus (PCR) SARS-CoV-2 IgG Ab Crossmatch 05/25/20 05/25/20 05/25/20 08:37 08:37 12:38 WBC 12.0 H RBC 3.64 L Hgb Hct MCV 99 H MCH 33 H MCHC RDW Lymph % (Auto) Lymph # (Auto) [place] # (Auto) Baso # (Auto) Seg Neutrophils % Seg Neuts % (Manual) Lymphocytes % (Manual) Nucleated RBC % Seg Neutrophils # Seg Neutrophils # Man Lymphocytes # (Manual) Monocytes # (Manual) PT INR APTT D-Dimer ABG pH POC ABG pCO2 POC ABG pO2 ABG pO2 ABG HCO3 ABG O2 Saturation ABG Base Excess ABG Hemoglobin ABG Oxyhemoglobin ABG Sodium ABG Potassium ABG Chloride ABG Glucose Oxyhemoglobin Sodium Potassium Chloride 97.3 L Carbon Dioxide 35 H BUN 25 H Creatinine 0.7 L Glucose 191 H POC Glucose 182 H Lactic Acid Calcium Magnesium Ferritin Total Bilirubin Direct Bilirubin AST ALT Alkaline Phosphatase Lactate Dehydrogenase C-Reactive Protein Total Protein Albumin Triglycerides Lipase Arterial Blood Glucose Arterial Blood Ionized Calcium Urine WBC (Auto) Coronavirus (PCR) SARS-CoV-2 IgG Ab Crossmatch 05/25/20 05/26/20 05/26/20 18:16 00:06 04:50 WBC RBC Hgb Hct MCV MCH MCHC RDW Lymph % (Auto) Lymph # (Auto) [place] # (Auto) Baso # (Auto) Seg Neutrophils % Seg Neuts % (Manual) Lymphocytes % (Manual) Nucleated RBC % Seg Neutrophils # Seg Neutrophils # Man Lymphocytes # (Manual) Monocytes # (Manual) PT INR APTT D-Dimer ABG pH POC ABG pCO2 POC ABG pO2 ABG pO2 221.5 H ABG HCO3 40.4 H ABG O2 Saturation 99.3 H ABG Base Excess 12.8 H ABG Hemoglobin 10.4 L ABG Oxyhemoglobin ABG Sodium ABG Potassium ABG Chloride ABG Glucose Oxyhemoglobin Sodium Potassium Chloride Carbon Dioxide BUN Creatinine Glucose POC Glucose 176 H 152 H Lactic Acid Calcium Magnesium Ferritin Total Bilirubin Direct Bilirubin AST ALT Alkaline Phosphatase Lactate Dehydrogenase C-Reactive Protein Total Protein Albumin Triglycerides Lipase Arterial Blood Glucose Arterial Blood Ionized Calcium Urine WBC (Auto) Coronavirus (PCR) SARS-CoV-2 IgG Ab Crossmatch 05/26/20 05/26/20 05/26/20 06:11 07:51 07:51 WBC 13.4 H RBC 3.64 L Hgb Hct MCV 98 H MCH 33 H MCHC RDW Lymph % (Auto) Lymph # (Auto) [place] # (Auto) Baso # (Auto) Seg Neutrophils % Seg Neuts % (Manual) Lymphocytes % (Manual) Nucleated RBC % Seg Neutrophils # Seg Neutrophils # Man Lymphocytes # (Manual) Monocytes # (Manual) PT INR APTT D-Dimer ABG pH POC ABG pCO2 POC ABG pO2 ABG pO2 ABG HCO3 ABG O2 Saturation ABG Base Excess ABG Hemoglobin ABG Oxyhemoglobin ABG Sodium ABG Potassium ABG Chloride ABG Glucose Oxyhemoglobin Sodium Potassium Chloride 96.6 L Carbon Dioxide 39 H BUN 29 H Creatinine 0.7 L Glucose 174 H POC Glucose 165 H Lactic Acid Calcium Magnesium Ferritin Total Bilirubin Direct Bilirubin AST ALT Alkaline Phosphatase Lactate Dehydrogenase C-Reactive Protein Total Protein Albumin Triglycerides Lipase Arterial Blood Glucose Arterial Blood Ionized Calcium Urine WBC (Auto) Coronavirus (PCR) SARS-CoV-2 IgG Ab Crossmatch 05/26/20 05/27/20 05/27/20 23:23 03:43 05:29 WBC RBC Hgb Hct MCV MCH MCHC RDW Lymph % (Auto) Lymph # (Auto) [place] # (Auto) Baso # (Auto) Seg Neutrophils % Seg Neuts % (Manual) Lymphocytes % (Manual) Nucleated RBC % Seg Neutrophils # Seg Neutrophils # Man Lymphocytes # (Manual) Monocytes # (Manual) PT INR APTT D-Dimer ABG pH 7.480 H POC ABG pCO2 52.4 H POC ABG pO2 61.4 L ABG pO2 ABG HCO3 ABG O2 Saturation ABG Base Excess ABG Hemoglobin ABG Oxyhemoglobin ABG Sodium 134.9 L ABG Potassium ABG Chloride 95.0 L ABG Glucose 221 H Oxyhemoglobin Sodium Potassium Chloride Carbon Dioxide BUN Creatinine Glucose POC Glucose 169 H 227 H Lactic Acid Calcium Magnesium Ferritin Total Bilirubin Direct Bilirubin AST ALT Alkaline Phosphatase Lactate Dehydrogenase C-Reactive Protein Total Protein Albumin Triglycerides Lipase Arterial Blood Glucose 221 H Arterial Blood Ionized Calcium 4.5 L Urine WBC (Auto) Coronavirus (PCR) SARS-CoV-2 IgG Ab Crossmatch 05/27/20 05/27/20 05/27/20 07:19 12:18 13:50 WBC RBC Hgb Hct MCV MCH MCHC RDW Lymph % (Auto) Lymph # (Auto) [place] # (Auto) Baso # (Auto) Seg Neutrophils % Seg Neuts % (Manual) Lymphocytes % (Manual) Nucleated RBC % Seg Neutrophils # Seg Neutrophils # Man Lymphocytes # (Manual) Monocytes # (Manual) PT INR APTT D-Dimer ABG pH POC ABG pCO2 POC ABG pO2 ABG pO2 ABG HCO3 ABG O2 Saturation ABG Base Excess ABG Hemoglobin ABG Oxyhemoglobin ABG Sodium ABG Potassium ABG Chloride ABG Glucose Oxyhemoglobin Sodium Potassium Chloride Carbon Dioxide BUN Creatinine Glucose POC Glucose 114 H 148 H Lactic Acid Calcium Magnesium Ferritin Total Bilirubin Direct Bilirubin AST ALT Alkaline Phosphatase Lactate Dehydrogenase C-Reactive Protein Total Protein Albumin Triglycerides 247 H Lipase Arterial Blood Glucose Arterial Blood Ionized Calcium Urine WBC (Auto) Coronavirus (PCR) SARS-CoV-2 IgG Ab Crossmatch 05/28/20 05/28/20 05/28/20 00:13 04:16 05:22 WBC RBC Hgb Hct MCV MCH MCHC RDW Lymph % (Auto) Lymph # (Auto) [place] # (Auto) Baso # (Auto) Seg Neutrophils % Seg Neuts % (Manual) Lymphocytes % (Manual) Nucleated RBC % Seg Neutrophils # Seg Neutrophils # Man Lymphocytes # (Manual) Monocytes # (Manual) PT INR APTT D-Dimer ABG pH POC ABG pCO2 64.4 H POC ABG pO2 60.5 L ABG pO2 ABG HCO3 ABG O2 Saturation ABG Base Excess ABG Hemoglobin ABG Oxyhemoglobin ABG Sodium ABG Potassium ABG Chloride 95.0 L ABG Glucose 209 H Oxyhemoglobin Sodium Potassium Chloride Carbon Dioxide BUN Creatinine Glucose POC Glucose 155 H 186 H Lactic Acid Calcium Magnesium Ferritin Total Bilirubin Direct Bilirubin AST ALT Alkaline Phosphatase Lactate Dehydrogenase C-Reactive Protein Total Protein Albumin Triglycerides Lipase Arterial Blood Glucose 209 H Arterial Blood Ionized Calcium Urine WBC (Auto) Coronavirus (PCR) SARS-CoV-2 IgG Ab Crossmatch 05/28/20 05/28/20 05/29/20 12:45 17:39 00:37 WBC RBC Hgb Hct MCV MCH MCHC RDW Lymph % (Auto) Lymph # (Auto) [place] # (Auto) Baso # (Auto) Seg Neutrophils % Seg Neuts % (Manual) Lymphocytes % (Manual) Nucleated RBC % Seg Neutrophils # Seg Neutrophils # Man Lymphocytes # (Manual) Monocytes # (Manual) PT INR APTT D-Dimer ABG pH POC ABG pCO2 POC ABG pO2 ABG pO2 ABG HCO3 ABG O2 Saturation ABG Base Excess ABG Hemoglobin ABG Oxyhemoglobin ABG Sodium ABG Potassium ABG Chloride ABG Glucose Oxyhemoglobin Sodium Potassium Chloride Carbon Dioxide BUN Creatinine Glucose POC Glucose 143 H 164 H 221 H Lactic Acid Calcium Magnesium Ferritin Total Bilirubin Direct Bilirubin AST ALT Alkaline Phosphatase Lactate Dehydrogenase C-Reactive Protein Total Protein Albumin Triglycerides Lipase Arterial Blood Glucose Arterial Blood Ionized Calcium Urine WBC (Auto) Coronavirus (PCR) SARS-CoV-2 IgG Ab Crossmatch 05/29/20 05/29/20 05/29/20 04:15 05:33 12:34 WBC RBC Hgb Hct MCV MCH MCHC RDW Lymph % (Auto) Lymph # (Auto) [place] # (Auto) Baso # (Auto) Seg Neutrophils % Seg Neuts % (Manual) Lymphocytes % (Manual) Nucleated RBC % Seg Neutrophils # Seg Neutrophils # Man Lymphocytes # (Manual) Monocytes # (Manual) PT INR APTT D-Dimer ABG pH 7.463 H POC ABG pCO2 56.3 H POC ABG pO2 81.2 L ABG pO2 ABG HCO3 ABG O2 Saturation ABG Base Excess ABG Hemoglobin ABG Oxyhemoglobin ABG Sodium ABG Potassium ABG Chloride 96.0 L ABG Glucose 194 H Oxyhemoglobin Sodium Potassium Chloride Carbon Dioxide BUN Creatinine Glucose POC Glucose 133 H 221 H Lactic Acid Calcium Magnesium Ferritin Total Bilirubin Direct Bilirubin AST ALT Alkaline Phosphatase Lactate Dehydrogenase C-Reactive Protein Total Protein Albumin Triglycerides Lipase Arterial Blood Glucose 194 H Arterial Blood Ionized Calcium 4.5 L Urine WBC (Auto) Coronavirus (PCR) SARS-CoV-2 IgG Ab Crossmatch 05/29/20 05/30/20 05/30/20 18:07 00:12 05:38 WBC RBC Hgb Hct MCV MCH MCHC RDW Lymph % (Auto) Lymph # (Auto) [place] # (Auto) Baso # (Auto) Seg Neutrophils % Seg Neuts % (Manual) Lymphocytes % (Manual) Nucleated RBC % Seg Neutrophils # Seg Neutrophils # Man Lymphocytes # (Manual) Monocytes # (Manual) PT INR APTT D-Dimer ABG pH POC ABG pCO2 POC ABG pO2 ABG pO2 ABG HCO3 ABG O2 Saturation ABG Base Excess ABG Hemoglobin ABG Oxyhemoglobin ABG Sodium ABG Potassium ABG Chloride ABG Glucose Oxyhemoglobin Sodium Potassium Chloride Carbon Dioxide BUN Creatinine Glucose POC Glucose 162 H 190 H 208 H Lactic Acid Calcium Magnesium Ferritin Total Bilirubin Direct Bilirubin AST ALT Alkaline Phosphatase Lactate Dehydrogenase C-Reactive Protein Total Protein Albumin Triglycerides Lipase Arterial Blood Glucose Arterial Blood Ionized Calcium Urine WBC (Auto) Coronavirus (PCR) SARS-CoV-2 IgG Ab Crossmatch 05/30/20 05/30/20 05/30/20 09:30 11:35 11:54 WBC 12.4 H RBC 3.48 L Hgb 11.3 L Hct 34.6 L MCV 99 H MCH 33 H MCHC RDW Lymph % (Auto) Lymph # (Auto) [place] # (Auto) Baso # (Auto) Seg Neutrophils % Seg Neuts % (Manual) Lymphocytes % (Manual) Nucleated RBC % Seg Neutrophils # Seg Neutrophils # Man Lymphocytes # (Manual) Monocytes # (Manual) PT INR APTT D-Dimer ABG pH 7.455 H POC ABG pCO2 57.5 H POC ABG pO2 81.5 L ABG pO2 ABG HCO3 ABG O2 Saturation ABG Base Excess ABG Hemoglobin ABG Oxyhemoglobin ABG Sodium ABG Potassium ABG Chloride 96.0 L ABG Glucose 204 H Oxyhemoglobin Sodium Potassium Chloride Carbon Dioxide BUN Creatinine Glucose POC Glucose 183 H Lactic Acid Calcium Magnesium Ferritin Total Bilirubin Direct Bilirubin AST ALT Alkaline Phosphatase Lactate Dehydrogenase C-Reactive Protein Total Protein Albumin Triglycerides Lipase Arterial Blood Glucose 204 H Arterial Blood Ionized Calcium Urine WBC (Auto) Coronavirus (PCR) SARS-CoV-2 IgG Ab Crossmatch 05/30/20 05/31/20 05/31/20 18:01 00:10 03:22 WBC RBC Hgb Hct MCV MCH MCHC RDW Lymph % (Auto) Lymph # (Auto) [place] # (Auto) Baso # (Auto) Seg Neutrophils % Seg Neuts % (Manual) Lymphocytes % (Manual) Nucleated RBC % Seg Neutrophils # Seg Neutrophils # Man Lymphocytes # (Manual) Monocytes # (Manual) PT INR APTT D-Dimer ABG pH POC ABG pCO2 60.4 H POC ABG pO2 71.5 L ABG pO2 ABG HCO3 ABG O2 Saturation ABG Base Excess ABG Hemoglobin ABG Oxyhemoglobin ABG Sodium ABG Potassium ABG Chloride 96.0 L ABG Glucose 169 H Oxyhemoglobin Sodium Potassium Chloride Carbon Dioxide BUN Creatinine Glucose POC Glucose 184 H 135 H Lactic Acid Calcium Magnesium Ferritin Total Bilirubin Direct Bilirubin AST ALT Alkaline Phosphatase Lactate Dehydrogenase C-Reactive Protein Total Protein Albumin Triglycerides Lipase Arterial Blood Glucose 169 H Arterial Blood Ionized Calcium 4.5 L Urine WBC (Auto) Coronavirus (PCR) SARS-CoV-2 IgG Ab Crossmatch 05/31/20 05/31/20 05/31/20 05:24 11:18 14:41 WBC RBC Hgb Hct MCV MCH MCHC RDW Lymph % (Auto) Lymph # (Auto) [place] # (Auto) Baso # (Auto) Seg Neutrophils % Seg Neuts % (Manual) Lymphocytes % (Manual) Nucleated RBC % Seg Neutrophils # Seg Neutrophils # Man Lymphocytes # (Manual) Monocytes # (Manual) PT INR APTT D-Dimer ABG pH POC ABG pCO2 POC ABG pO2 ABG pO2 ABG HCO3 ABG O2 Saturation ABG Base Excess ABG Hemoglobin ABG Oxyhemoglobin ABG Sodium ABG Potassium ABG Chloride ABG Glucose Oxyhemoglobin Sodium Potassium Chloride 96.8 L Carbon Dioxide 37 H BUN 31 H Creatinine 0.6 L Glucose 213 H POC Glucose 164 H 208 H Lactic Acid Calcium Magnesium Ferritin Total Bilirubin Direct Bilirubin AST ALT Alkaline Phosphatase Lactate Dehydrogenase C-Reactive Protein Total Protein Albumin Triglycerides Lipase Arterial Blood Glucose Arterial Blood Ionized Calcium Urine WBC (Auto) Coronavirus (PCR) SARS-CoV-2 IgG Ab Crossmatch 05/31/20 05/31/20 06/01/20 17:37 23:47 03:48 WBC RBC Hgb Hct MCV MCH MCHC RDW Lymph % (Auto) Lymph # (Auto) [place] # (Auto) Baso # (Auto) Seg Neutrophils % Seg Neuts % (Manual) Lymphocytes % (Manual) Nucleated RBC % Seg Neutrophils # Seg Neutrophils # Man Lymphocytes # (Manual) Monocytes # (Manual) PT INR APTT D-Dimer ABG pH POC ABG pCO2 59.7 H POC ABG pO2 73.9 L ABG pO2 ABG HCO3 ABG O2 Saturation ABG Base Excess ABG Hemoglobin ABG Oxyhemoglobin ABG Sodium ABG Potassium ABG Chloride 95.0 L ABG Glucose 256 H Oxyhemoglobin Sodium Potassium Chloride Carbon Dioxide BUN Creatinine Glucose POC Glucose 168 H 178 H Lactic Acid Calcium Magnesium Ferritin Total Bilirubin Direct Bilirubin AST ALT Alkaline Phosphatase Lactate Dehydrogenase C-Reactive Protein Total Protein Albumin Triglycerides Lipase Arterial Blood Glucose 256 H Arterial Blood Ionized Calcium Urine WBC (Auto) Coronavirus (PCR) SARS-CoV-2 IgG Ab Crossmatch 06/01/20 06/01/20 06/01/20 05:01 07:47 07:47 WBC 14.4 H RBC 3.46 L Hgb 11.1 L Hct 34.3 L MCV 99 H MCH MCHC RDW Lymph % (Auto) Lymph # (Auto) [place] # (Auto) Baso # (Auto) Seg Neutrophils % Seg Neuts % (Manual) 86.0 H Lymphocytes % (Manual) 9.0 L Nucleated RBC % Seg Neutrophils # Seg Neutrophils # Man 12.4 H Lymphocytes # (Manual) Monocytes # (Manual) PT INR APTT D-Dimer ABG pH POC ABG pCO2 POC ABG pO2 ABG pO2 ABG HCO3 ABG O2 Saturation ABG Base Excess ABG Hemoglobin ABG Oxyhemoglobin ABG Sodium ABG Potassium ABG Chloride ABG Glucose Oxyhemoglobin Sodium Potassium Chloride Carbon Dioxide BUN Creatinine Glucose POC Glucose 197 H Lactic Acid Calcium Magnesium Ferritin Total Bilirubin Direct Bilirubin AST ALT Alkaline Phosphatase Lactate Dehydrogenase C-Reactive Protein Total Protein Albumin Triglycerides 244 H Lipase Arterial Blood Glucose Arterial Blood Ionized Calcium Urine WBC (Auto) Coronavirus (PCR) SARS-CoV-2 IgG Ab Crossmatch 06/01/20 06/01/20 06/01/20 07:47 11:46 18:15 WBC RBC Hgb Hct MCV MCH MCHC RDW Lymph % (Auto) Lymph # (Auto) [place] # (Auto) Baso # (Auto) Seg Neutrophils % Seg Neuts % (Manual) Lymphocytes % (Manual) Nucleated RBC % Seg Neutrophils # Seg Neutrophils # Man Lymphocytes # (Manual) Monocytes # (Manual) PT INR APTT D-Dimer ABG pH POC ABG pCO2 POC ABG pO2 ABG pO2 ABG HCO3 ABG O2 Saturation ABG Base Excess ABG Hemoglobin ABG Oxyhemoglobin ABG Sodium ABG Potassium ABG Chloride ABG Glucose Oxyhemoglobin Sodium Potassium Chloride 95.4 L Carbon Dioxide 35 H BUN 30 H Creatinine 0.5 L Glucose 214 H POC Glucose 181 H 221 H Lactic Acid Calcium Magnesium Ferritin Total Bilirubin Direct Bilirubin AST 54 H ALT 235 H Alkaline Phosphatase Lactate Dehydrogenase C-Reactive Protein Total Protein Albumin 2.9 L Triglycerides Lipase Arterial Blood Glucose Arterial Blood Ionized Calcium Urine WBC (Auto) Coronavirus (PCR) SARS-CoV-2 IgG Ab Crossmatch 06/01/20 06/02/20 06/02/20 23:12 04:00 05:31 WBC RBC Hgb Hct MCV MCH MCHC RDW Lymph % (Auto) Lymph # (Auto) [place] # (Auto) Baso # (Auto) Seg Neutrophils % Seg Neuts % (Manual) Lymphocytes % (Manual) Nucleated RBC % Seg Neutrophils # Seg Neutrophils # Man Lymphocytes # (Manual) Monocytes # (Manual) PT INR APTT D-Dimer ABG pH 7.465 H POC ABG pCO2 POC ABG pO2 ABG pO2 203.4 H ABG HCO3 41.2 H ABG O2 Saturation 99.3 H ABG Base Excess 15.1 H ABG Hemoglobin 11.5 L ABG Oxyhemoglobin ABG Sodium ABG Potassium ABG Chloride ABG Glucose Oxyhemoglobin Sodium Potassium Chloride Carbon Dioxide BUN Creatinine Glucose POC Glucose 197 H 184 H Lactic Acid Calcium Magnesium Ferritin Total Bilirubin Direct Bilirubin AST ALT Alkaline Phosphatase Lactate Dehydrogenase C-Reactive Protein Total Protein Albumin Triglycerides Lipase Arterial Blood Glucose Arterial Blood Ionized Calcium Urine WBC (Auto) Coronavirus (PCR) SARS-CoV-2 IgG Ab Crossmatch 06/02/20 06/02/20 06/02/20 11:49 18:06 23:00 WBC RBC Hgb Hct MCV MCH MCHC RDW Lymph % (Auto) Lymph # (Auto) [place] # (Auto) Baso # (Auto) Seg Neutrophils % Seg Neuts % (Manual) Lymphocytes % (Manual) Nucleated RBC % Seg Neutrophils # Seg Neutrophils # Man Lymphocytes # (Manual) Monocytes # (Manual) PT INR APTT D-Dimer ABG pH POC ABG pCO2 POC ABG pO2 ABG pO2 ABG HCO3 ABG O2 Saturation ABG Base Excess ABG Hemoglobin ABG Oxyhemoglobin ABG Sodium ABG Potassium ABG Chloride ABG Glucose Oxyhemoglobin Sodium Potassium Chloride Carbon Dioxide BUN Creatinine Glucose POC Glucose 195 H 177 H 228 H Lactic Acid Calcium Magnesium Ferritin Total Bilirubin Direct Bilirubin AST ALT Alkaline Phosphatase Lactate Dehydrogenase C-Reactive Protein Total Protein Albumin Triglycerides Lipase Arterial Blood Glucose Arterial Blood Ionized Calcium Urine WBC (Auto) Coronavirus (PCR) SARS-CoV-2 IgG Ab Crossmatch 06/03/20 06/03/20 06/03/20 03:58 05:19 12:21 WBC RBC Hgb Hct MCV MCH MCHC RDW Lymph % (Auto) Lymph # (Auto) [place] # (Auto) Baso # (Auto) Seg Neutrophils % Seg Neuts % (Manual) Lymphocytes % (Manual) Nucleated RBC % Seg Neutrophils # Seg Neutrophils # Man Lymphocytes # (Manual) Monocytes # (Manual) PT INR APTT D-Dimer ABG pH POC ABG pCO2 POC ABG pO2 ABG pO2 171.0 H ABG HCO3 42.8 H ABG O2 Saturation ABG Base Excess 15.6 H ABG Hemoglobin 12.3 L ABG Oxyhemoglobin ABG Sodium ABG Potassium ABG Chloride ABG Glucose Oxyhemoglobin Sodium Potassium Chloride Carbon Dioxide BUN Creatinine Glucose POC Glucose 122 H 207 H Lactic Acid Calcium Magnesium Ferritin Total Bilirubin Direct Bilirubin AST ALT Alkaline Phosphatase Lactate Dehydrogenase C-Reactive Protein Total Protein Albumin Triglycerides Lipase Arterial Blood Glucose Arterial Blood Ionized Calcium Urine WBC (Auto) Coronavirus (PCR) SARS-CoV-2 IgG Ab Crossmatch 06/03/20 06/03/20 06/04/20 17:27 23:50 03:55 WBC RBC Hgb Hct MCV MCH MCHC RDW Lymph % (Auto) Lymph # (Auto) [place] # (Auto) Baso # (Auto) Seg Neutrophils % Seg Neuts % (Manual) Lymphocytes % (Manual) Nucleated RBC % Seg Neutrophils # Seg Neutrophils # Man Lymphocytes # (Manual) Monocytes # (Manual) PT INR APTT D-Dimer ABG pH POC ABG pCO2 POC ABG pO2 ABG pO2 117.2 H ABG HCO3 42.4 H ABG O2 Saturation ABG Base Excess 15.3 H ABG Hemoglobin 10.5 L ABG Oxyhemoglobin ABG Sodium ABG Potassium ABG Chloride ABG Glucose Oxyhemoglobin Sodium Potassium Chloride Carbon Dioxide BUN Creatinine Glucose POC Glucose 157 H 214 H Lactic Acid Calcium Magnesium Ferritin Total Bilirubin Direct Bilirubin AST ALT Alkaline Phosphatase Lactate Dehydrogenase C-Reactive Protein Total Protein Albumin Triglycerides Lipase Arterial Blood Glucose Arterial Blood Ionized Calcium Urine WBC (Auto) Coronavirus (PCR) SARS-CoV-2 IgG Ab Crossmatch 06/04/20 06/04/20 06/04/20 05:49 11:41 17:30 WBC RBC Hgb Hct MCV MCH MCHC RDW Lymph % (Auto) Lymph # (Auto) [place] # (Auto) Baso # (Auto) Seg Neutrophils % Seg Neuts % (Manual) Lymphocytes % (Manual) Nucleated RBC % Seg Neutrophils # Seg Neutrophils # Man Lymphocytes # (Manual) Monocytes # (Manual) PT INR APTT D-Dimer ABG pH POC ABG pCO2 POC ABG pO2 ABG pO2 ABG HCO3 ABG O2 Saturation ABG Base Excess ABG Hemoglobin ABG Oxyhemoglobin ABG Sodium ABG Potassium ABG Chloride ABG Glucose Oxyhemoglobin Sodium Potassium Chloride Carbon Dioxide BUN Creatinine Glucose POC Glucose 149 H 233 H 156 H Lactic Acid Calcium Magnesium Ferritin Total Bilirubin Direct Bilirubin AST ALT Alkaline Phosphatase Lactate Dehydrogenase C-Reactive Protein Total Protein Albumin Triglycerides Lipase Arterial Blood Glucose Arterial Blood Ionized Calcium Urine WBC (Auto) Coronavirus (PCR) SARS-CoV-2 IgG Ab Crossmatch 06/04/20 06/04/20 06/04/20 19:01 20:53 23:41 WBC RBC 3.18 L Hgb 10.8 L Hct 31.8 L MCV 100 H MCH 34 H MCHC RDW Lymph % (Auto) Lymph # (Auto) [place] # (Auto) Baso # (Auto) Seg Neutrophils % Seg Neuts % (Manual) 86.0 H Lymphocytes % (Manual) 10.0 L Nucleated RBC % 1.0 H Seg Neutrophils # Seg Neutrophils # Man 8.5 H Lymphocytes # (Manual) 1.0 L Monocytes # (Manual) PT INR APTT D-Dimer ABG pH POC ABG pCO2 POC ABG pO2 ABG pO2 ABG HCO3 ABG O2 Saturation ABG Base Excess ABG Hemoglobin ABG Oxyhemoglobin ABG Sodium ABG Potassium ABG Chloride ABG Glucose Oxyhemoglobin Sodium Potassium 3.4 L D Chloride 96.5 L Carbon Dioxide 41 H* BUN 27 H Creatinine 0.5 L Glucose 173 H POC Glucose 217 H Lactic Acid Calcium Magnesium Ferritin Total Bilirubin Direct Bilirubin AST ALT Alkaline Phosphatase Lactate Dehydrogenase C-Reactive Protein Total Protein Albumin Triglycerides Lipase Arterial Blood Glucose Arterial Blood Ionized Calcium Urine WBC (Auto) Coronavirus (PCR) SARS-CoV-2 IgG Ab Crossmatch 06/05/20 06/05/20 06/05/20 06:05 11:54 12:35 WBC RBC Hgb Hct MCV MCH MCHC RDW Lymph % (Auto) Lymph # (Auto) [place] # (Auto) Baso # (Auto) Seg Neutrophils % Seg Neuts % (Manual) Lymphocytes % (Manual) Nucleated RBC % Seg Neutrophils # Seg Neutrophils # Man Lymphocytes # (Manual) Monocytes # (Manual) PT INR APTT D-Dimer ABG pH POC ABG pCO2 POC ABG pO2 ABG pO2 127.9 H ABG HCO3 41.1 H ABG O2 Saturation ABG Base Excess 13.0 H ABG Hemoglobin 13.4 L ABG Oxyhemoglobin ABG Sodium ABG Potassium ABG Chloride ABG Glucose Oxyhemoglobin Sodium Potassium Chloride Carbon Dioxide BUN Creatinine Glucose POC Glucose 137 H 211 H Lactic Acid Calcium Magnesium Ferritin Total Bilirubin Direct Bilirubin AST ALT Alkaline Phosphatase Lactate Dehydrogenase C-Reactive Protein Total Protein Albumin Triglycerides Lipase Arterial Blood Glucose Arterial Blood Ionized Calcium Urine WBC (Auto) Coronavirus (PCR) SARS-CoV-2 IgG Ab Crossmatch 06/05/20 06/05/20 06/06/20 17:03 23:49 04:42 WBC RBC Hgb Hct MCV MCH MCHC RDW Lymph % (Auto) Lymph # (Auto) [place] # (Auto) Baso # (Auto) Seg Neutrophils % Seg Neuts % (Manual) Lymphocytes % (Manual) Nucleated RBC % Seg Neutrophils # Seg Neutrophils # Man Lymphocytes # (Manual) Monocytes # (Manual) PT INR APTT D-Dimer ABG pH POC ABG pCO2 56.1 H POC ABG pO2 52.5 L ABG pO2 ABG HCO3 ABG O2 Saturation ABG Base Excess ABG Hemoglobin 11.7 L ABG Oxyhemoglobin ABG Sodium ABG Potassium 3.3 L ABG Chloride 95.0 L ABG Glucose 156 H Oxyhemoglobin Sodium Potassium Chloride Carbon Dioxide BUN Creatinine Glucose POC Glucose 159 H 194 H Lactic Acid Calcium Magnesium Ferritin Total Bilirubin Direct Bilirubin AST ALT Alkaline Phosphatase Lactate Dehydrogenase C-Reactive Protein Total Protein Albumin Triglycerides Lipase Arterial Blood Glucose 156 H Arterial Blood Ionized Calcium Urine WBC (Auto) Coronavirus (PCR) SARS-CoV-2 IgG Ab Crossmatch 06/06/20 06/06/20 06/06/20 05:57 12:06 17:38 WBC RBC Hgb Hct MCV MCH MCHC RDW Lymph % (Auto) Lymph # (Auto) [place] # (Auto) Baso # (Auto) Seg Neutrophils % Seg Neuts % (Manual) Lymphocytes % (Manual) Nucleated RBC % Seg Neutrophils # Seg Neutrophils # Man Lymphocytes # (Manual) Monocytes # (Manual) PT INR APTT D-Dimer ABG pH POC ABG pCO2 POC ABG pO2 ABG pO2 ABG HCO3 ABG O2 Saturation ABG Base Excess ABG Hemoglobin ABG Oxyhemoglobin ABG Sodium ABG Potassium ABG Chloride ABG Glucose Oxyhemoglobin Sodium Potassium Chloride Carbon Dioxide BUN Creatinine Glucose POC Glucose 144 H 230 H 162 H Lactic Acid Calcium Magnesium Ferritin Total Bilirubin Direct Bilirubin AST ALT Alkaline Phosphatase Lactate Dehydrogenase C-Reactive Protein Total Protein Albumin Triglycerides Lipase Arterial Blood Glucose Arterial Blood Ionized Calcium Urine WBC (Auto) Coronavirus (PCR) SARS-CoV-2 IgG Ab Crossmatch 06/06/20 06/07/20 06/07/20 23:50 04:34 06:03 WBC RBC Hgb Hct MCV MCH MCHC RDW Lymph % (Auto) Lymph # (Auto) [place] # (Auto) Baso # (Auto) Seg Neutrophils % Seg Neuts % (Manual) Lymphocytes % (Manual) Nucleated RBC % Seg Neutrophils # Seg Neutrophils # Man Lymphocytes # (Manual) Monocytes # (Manual) PT INR APTT D-Dimer ABG pH 7.511 H POC ABG pCO2 53.5 H POC ABG pO2 114.5 H ABG pO2 ABG HCO3 ABG O2 Saturation ABG Base Excess ABG Hemoglobin 9.4 L ABG Oxyhemoglobin ABG Sodium 134.5 L ABG Potassium ABG Chloride 94.0 L ABG Glucose 186 H Oxyhemoglobin Sodium Potassium Chloride Carbon Dioxide BUN Creatinine Glucose POC Glucose 181 H 155 H Lactic Acid Calcium Magnesium Ferritin Total Bilirubin Direct Bilirubin AST ALT Alkaline Phosphatase Lactate Dehydrogenase C-Reactive Protein Total Protein Albumin Triglycerides Lipase Arterial Blood Glucose 186 H Arterial Blood Ionized Calcium 4.5 L Urine WBC (Auto) Coronavirus (PCR) SARS-CoV-2 IgG Ab Crossmatch 06/07/20 06/07/20 06/07/20 13:41 14:58 14:58 WBC RBC 2.72 L Hgb 9.3 L Hct 27.2 L MCV 100 H MCH 34 H MCHC RDW Lymph % (Auto) Lymph # (Auto) [place] # (Auto) Baso # (Auto) Seg Neutrophils % Seg Neuts % (Manual) Lymphocytes % (Manual) Nucleated RBC % Seg Neutrophils # Seg Neutrophils # Man Lymphocytes # (Manual) Monocytes # (Manual) PT INR APTT D-Dimer ABG pH POC ABG pCO2 POC ABG pO2 ABG pO2 ABG HCO3 ABG O2 Saturation ABG Base Excess ABG Hemoglobin ABG Oxyhemoglobin ABG Sodium ABG Potassium ABG Chloride ABG Glucose Oxyhemoglobin Sodium Potassium Chloride 93.5 L Carbon Dioxide 39 H BUN 22 H Creatinine 0.4 L Glucose 188 H POC Glucose 201 H Lactic Acid Calcium Magnesium Ferritin Total Bilirubin Direct Bilirubin AST 61 H ALT 273 H Alkaline Phosphatase Lactate Dehydrogenase C-Reactive Protein Total Protein 5.9 L Albumin 2.7 L Triglycerides Lipase Arterial Blood Glucose Arterial Blood Ionized Calcium Urine WBC (Auto) Coronavirus (PCR) SARS-CoV-2 IgG Ab Crossmatch 06/07/20 06/08/20 06/08/20 23:18 05:31 12:07 WBC RBC Hgb Hct MCV MCH MCHC RDW Lymph % (Auto) Lymph # (Auto) [place] # (Auto) Baso # (Auto) Seg Neutrophils % Seg Neuts % (Manual) Lymphocytes % (Manual) Nucleated RBC % Seg Neutrophils # Seg Neutrophils # Man Lymphocytes # (Manual) Monocytes # (Manual) PT INR APTT D-Dimer ABG pH POC ABG pCO2 POC ABG pO2 ABG pO2 ABG HCO3 ABG O2 Saturation ABG Base Excess ABG Hemoglobin ABG Oxyhemoglobin ABG Sodium ABG Potassium ABG Chloride ABG Glucose Oxyhemoglobin Sodium Potassium Chloride Carbon Dioxide BUN Creatinine Glucose POC Glucose 214 H 129 H 179 H Lactic Acid Calcium Magnesium Ferritin Total Bilirubin Direct Bilirubin AST ALT Alkaline Phosphatase Lactate Dehydrogenase C-Reactive Protein Total Protein Albumin Triglycerides Lipase Arterial Blood Glucose Arterial Blood Ionized Calcium Urine WBC (Auto) Coronavirus (PCR) SARS-CoV-2 IgG Ab Crossmatch 06/08/20 06/08/20 06/09/20 18:18 23:35 05:42 WBC RBC Hgb Hct MCV MCH MCHC RDW Lymph % (Auto) Lymph # (Auto) [place] # (Auto) Baso # (Auto) Seg Neutrophils % Seg Neuts % (Manual) Lymphocytes % (Manual) Nucleated RBC % Seg Neutrophils # Seg Neutrophils # Man Lymphocytes # (Manual) Monocytes # (Manual) PT INR APTT D-Dimer ABG pH POC ABG pCO2 POC ABG pO2 ABG pO2 ABG HCO3 ABG O2 Saturation ABG Base Excess ABG Hemoglobin ABG Oxyhemoglobin ABG Sodium ABG Potassium ABG Chloride ABG Glucose Oxyhemoglobin Sodium Potassium Chloride Carbon Dioxide BUN Creatinine Glucose POC Glucose 172 H 177 H 137 H Lactic Acid Calcium Magnesium Ferritin Total Bilirubin Direct Bilirubin AST ALT Alkaline Phosphatase Lactate Dehydrogenase C-Reactive Protein Total Protein Albumin Triglycerides Lipase Arterial Blood Glucose Arterial Blood Ionized Calcium Urine WBC (Auto) Coronavirus (PCR) SARS-CoV-2 IgG Ab Crossmatch 06/09/20 06/09/20 06/09/20 06:20 07:55 07:55 WBC 12.4 H RBC 3.26 L Hgb 11.1 L Hct 33.4 L D MCV 102 H MCH 34 H MCHC RDW Lymph % (Auto) Lymph # (Auto) [place] # (Auto) Baso # (Auto) Seg Neutrophils % Seg Neuts % (Manual) Lymphocytes % (Manual) Nucleated RBC % Seg Neutrophils # Seg Neutrophils # Man Lymphocytes # (Manual) Monocytes # (Manual) PT INR APTT D-Dimer ABG pH 7.466 H POC ABG pCO2 50.7 H POC ABG pO2 53.0 L ABG pO2 ABG HCO3 ABG O2 Saturation ABG Base Excess ABG Hemoglobin ABG Oxyhemoglobin ABG Sodium ABG Potassium 2.9 L ABG Chloride 93.0 L ABG Glucose 138 H Oxyhemoglobin Sodium Potassium 3.0 L Chloride 92.3 L Carbon Dioxide 37 H BUN 21 H Creatinine 0.6 L Glucose 120 H POC Glucose Lactic Acid Calcium Magnesium Ferritin Total Bilirubin Direct Bilirubin AST ALT Alkaline Phosphatase Lactate Dehydrogenase C-Reactive Protein Total Protein Albumin Triglycerides Lipase Arterial Blood Glucose 138 H Arterial Blood Ionized Calcium 4.5 L Urine WBC (Auto) Coronavirus (PCR) SARS-CoV-2 IgG Ab Crossmatch 06/09/20 06/09/20 06/10/20 11:22 18:32 04:46 WBC RBC Hgb Hct MCV MCH MCHC RDW Lymph % (Auto) Lymph # (Auto) [place] # (Auto) Baso # (Auto) Seg Neutrophils % Seg Neuts % (Manual) Lymphocytes % (Manual) Nucleated RBC % Seg Neutrophils # Seg Neutrophils # Man Lymphocytes # (Manual) Monocytes # (Manual) PT INR APTT D-Dimer ABG pH 7.501 H POC ABG pCO2 POC ABG pO2 126.5 H ABG pO2 ABG HCO3 ABG O2 Saturation ABG Base Excess ABG Hemoglobin 10.3 L ABG Oxyhemoglobin ABG Sodium ABG Potassium ABG Chloride ABG Glucose 220 H Oxyhemoglobin Sodium Potassium Chloride Carbon Dioxide BUN Creatinine Glucose POC Glucose 117 H 121 H Lactic Acid Calcium Magnesium Ferritin Total Bilirubin Direct Bilirubin AST ALT Alkaline Phosphatase Lactate Dehydrogenase C-Reactive Protein Total Protein Albumin Triglycerides Lipase Arterial Blood Glucose 220 H Arterial Blood Ionized Calcium Urine WBC (Auto) Coronavirus (PCR) SARS-CoV-2 IgG Ab Crossmatch 06/10/20 06/10/20 06/10/20 05:30 09:38 12:03 WBC RBC Hgb Hct MCV MCH MCHC RDW Lymph % (Auto) Lymph # (Auto) [place] # (Auto) Baso # (Auto) Seg Neutrophils % Seg Neuts % (Manual) Lymphocytes % (Manual) Nucleated RBC % Seg Neutrophils # Seg Neutrophils # Man Lymphocytes # (Manual) Monocytes # (Manual) PT INR APTT D-Dimer ABG pH POC ABG pCO2 POC ABG pO2 ABG pO2 ABG HCO3 ABG O2 Saturation ABG Base Excess ABG Hemoglobin ABG Oxyhemoglobin ABG Sodium ABG Potassium ABG Chloride ABG Glucose Oxyhemoglobin Sodium Potassium Chloride Carbon Dioxide BUN Creatinine Glucose POC Glucose 181 H 204 H Lactic Acid Calcium Magnesium Ferritin Total Bilirubin Direct Bilirubin AST ALT Alkaline Phosphatase Lactate Dehydrogenase C-Reactive Protein Total Protein Albumin Triglycerides 738 H Lipase Arterial Blood Glucose Arterial Blood Ionized Calcium Urine WBC (Auto) Coronavirus (PCR) SARS-CoV-2 IgG Ab Crossmatch 06/10/20 06/11/20 06/11/20 17:17 00:04 04:38 WBC RBC Hgb Hct MCV MCH MCHC RDW Lymph % (Auto) Lymph # (Auto) [place] # (Auto) Baso # (Auto) Seg Neutrophils % Seg Neuts % (Manual) Lymphocytes % (Manual) Nucleated RBC % Seg Neutrophils # Seg Neutrophils # Man Lymphocytes # (Manual) Monocytes # (Manual) PT INR APTT D-Dimer ABG pH 7.479 H POC ABG pCO2 POC ABG pO2 76.7 L ABG pO2 ABG HCO3 ABG O2 Saturation ABG Base Excess ABG Hemoglobin 9.8 L ABG Oxyhemoglobin ABG Sodium 135.8 L ABG Potassium ABG Chloride ABG Glucose 238 H Oxyhemoglobin Sodium Potassium Chloride Carbon Dioxide BUN Creatinine Glucose POC Glucose 156 H 178 H Lactic Acid Calcium Magnesium Ferritin Total Bilirubin Direct Bilirubin AST ALT Alkaline Phosphatase Lactate Dehydrogenase C-Reactive Protein Total Protein Albumin Triglycerides Lipase Arterial Blood Glucose 238 H Arterial Blood Ionized Calcium Urine WBC (Auto) Coronavirus (PCR) SARS-CoV-2 IgG Ab Crossmatch 06/11/20 06/11/20 06/11/20 05:21 06:52 11:50 WBC RBC Hgb Hct MCV MCH MCHC RDW Lymph % (Auto) Lymph # (Auto) [place] # (Auto) Baso # (Auto) Seg Neutrophils % Seg Neuts % (Manual) Lymphocytes % (Manual) Nucleated RBC % Seg Neutrophils # Seg Neutrophils # Man Lymphocytes # (Manual) Monocytes # (Manual) PT INR APTT D-Dimer ABG pH POC ABG pCO2 POC ABG pO2 ABG pO2 ABG HCO3 ABG O2 Saturation ABG Base Excess ABG Hemoglobin ABG Oxyhemoglobin ABG Sodium ABG Potassium ABG Chloride ABG Glucose Oxyhemoglobin Sodium Potassium Chloride Carbon Dioxide BUN Creatinine Glucose POC Glucose 215 H 187 H Lactic Acid Calcium Magnesium Ferritin Total Bilirubin Direct Bilirubin AST ALT Alkaline Phosphatase Lactate Dehydrogenase C-Reactive Protein Total Protein Albumin Triglycerides 331 H Lipase Arterial Blood Glucose Arterial Blood Ionized Calcium Urine WBC (Auto) Coronavirus (PCR) SARS-CoV-2 IgG Ab Crossmatch 06/11/20 06/11/20 06/12/20 17:49 23:35 04:52 WBC RBC Hgb Hct MCV MCH MCHC RDW Lymph % (Auto) Lymph # (Auto) [place] # (Auto) Baso # (Auto) Seg Neutrophils % Seg Neuts % (Manual) Lymphocytes % (Manual) Nucleated RBC % Seg Neutrophils # Seg Neutrophils # Man Lymphocytes # (Manual) Monocytes # (Manual) PT INR APTT D-Dimer ABG pH 7.486 H POC ABG pCO2 POC ABG pO2 ABG pO2 ABG HCO3 ABG O2 Saturation ABG Base Excess ABG Hemoglobin 9.4 L ABG Oxyhemoglobin ABG Sodium ABG Potassium 3.2 L ABG Chloride ABG Glucose 209 H Oxyhemoglobin Sodium Potassium Chloride Carbon Dioxide BUN Creatinine Glucose POC Glucose 211 H 200 H Lactic Acid Calcium Magnesium Ferritin Total Bilirubin Direct Bilirubin AST ALT Alkaline Phosphatase Lactate Dehydrogenase C-Reactive Protein Total Protein Albumin Triglycerides Lipase Arterial Blood Glucose 209 H Arterial Blood Ionized Calcium Urine WBC (Auto) Coronavirus (PCR) SARS-CoV-2 IgG Ab Crossmatch 06/12/20 06/12/20 06/12/20 05:13 11:47 18:33 WBC RBC Hgb Hct MCV MCH MCHC RDW Lymph % (Auto) Lymph # (Auto) [place] # (Auto) Baso # (Auto) Seg Neutrophils % Seg Neuts % (Manual) Lymphocytes % (Manual) Nucleated RBC % Seg Neutrophils # Seg Neutrophils # Man Lymphocytes # (Manual) Monocytes # (Manual) PT INR APTT D-Dimer ABG pH POC ABG pCO2 POC ABG pO2 ABG pO2 ABG HCO3 ABG O2 Saturation ABG Base Excess ABG Hemoglobin ABG Oxyhemoglobin ABG Sodium ABG Potassium ABG Chloride ABG Glucose Oxyhemoglobin Sodium Potassium Chloride Carbon Dioxide BUN Creatinine Glucose POC Glucose 174 H 214 H 194 H Lactic Acid Calcium Magnesium Ferritin Total Bilirubin Direct Bilirubin AST ALT Alkaline Phosphatase Lactate Dehydrogenase C-Reactive Protein Total Protein Albumin Triglycerides Lipase Arterial Blood Glucose Arterial Blood Ionized Calcium Urine WBC (Auto) Coronavirus (PCR) SARS-CoV-2 IgG Ab Crossmatch 06/12/20 06/13/20 06/13/20 23:49 05:41 12:30 WBC RBC Hgb Hct MCV MCH MCHC RDW Lymph % (Auto) Lymph # (Auto) [place] # (Auto) Baso # (Auto) Seg Neutrophils % Seg Neuts % (Manual) Lymphocytes % (Manual) Nucleated RBC % Seg Neutrophils # Seg Neutrophils # Man Lymphocytes # (Manual) Monocytes # (Manual) PT INR APTT D-Dimer ABG pH POC ABG pCO2 POC ABG pO2 ABG pO2 ABG HCO3 ABG O2 Saturation ABG Base Excess ABG Hemoglobin ABG Oxyhemoglobin ABG Sodium ABG Potassium ABG Chloride ABG Glucose Oxyhemoglobin Sodium Potassium Chloride Carbon Dioxide BUN Creatinine Glucose POC Glucose 160 H 150 H 181 H Lactic Acid Calcium Magnesium Ferritin Total Bilirubin Direct Bilirubin AST ALT Alkaline Phosphatase Lactate Dehydrogenase C-Reactive Protein Total Protein Albumin Triglycerides Lipase Arterial Blood Glucose Arterial Blood Ionized Calcium Urine WBC (Auto) Coronavirus (PCR) SARS-CoV-2 IgG Ab Crossmatch 06/13/20 06/13/20 06/13/20 14:14 17:48 23:27 WBC 12.8 H RBC 2.33 L Hgb 8.0 L Hct 23.3 L MCV 100 H MCH 34 H MCHC RDW 15.7 H Lymph % (Auto) Lymph # (Auto) [place] # (Auto) Baso # (Auto) Seg Neutrophils % Seg Neuts % (Manual) 85.0 H Lymphocytes % (Manual) 10.0 L Nucleated RBC % Seg Neutrophils # Seg Neutrophils # Man 10.9 H Lymphocytes # (Manual) Monocytes # (Manual) PT INR APTT D-Dimer ABG pH POC ABG pCO2 POC ABG pO2 ABG pO2 ABG HCO3 ABG O2 Saturation ABG Base Excess ABG Hemoglobin ABG Oxyhemoglobin ABG Sodium ABG Potassium ABG Chloride ABG Glucose Oxyhemoglobin Sodium Potassium Chloride Carbon Dioxide BUN Creatinine Glucose POC Glucose 173 H 154 H Lactic Acid Calcium Magnesium Ferritin Total Bilirubin Direct Bilirubin AST ALT Alkaline Phosphatase Lactate Dehydrogenase C-Reactive Protein Total Protein Albumin Triglycerides Lipase Arterial Blood Glucose Arterial Blood Ionized Calcium Urine WBC (Auto) Coronavirus (PCR) SARS-CoV-2 IgG Ab Crossmatch 06/14/20 06/14/20 06/14/20 03:58 05:21 07:15 WBC 26.2 H RBC 2.97 L Hgb 9.7 L Hct 29.9 L D MCV 101 H MCH 33 H MCHC RDW 15.3 H Lymph % (Auto) Lymph # (Auto) [place] # (Auto) Baso # (Auto) Seg Neutrophils % Seg Neuts % (Manual) 79.0 H Lymphocytes % (Manual) 5.0 L Nucleated RBC % 3.0 H Seg Neutrophils # Seg Neutrophils # Man 20.7 H Lymphocytes # (Manual) Monocytes # (Manual) 1.3 H PT INR APTT D-Dimer ABG pH POC ABG pCO2 51.5 H POC ABG pO2 70.0 L ABG pO2 ABG HCO3 ABG O2 Saturation ABG Base Excess ABG Hemoglobin 10.1 L ABG Oxyhemoglobin ABG Sodium 131.5 L ABG Potassium 3.1 L ABG Chloride 93.0 L ABG Glucose 188 H Oxyhemoglobin Sodium Potassium Chloride Carbon Dioxide BUN Creatinine Glucose POC Glucose 147 H Lactic Acid Calcium Magnesium Ferritin Total Bilirubin Direct Bilirubin AST ALT Alkaline Phosphatase Lactate Dehydrogenase C-Reactive Protein Total Protein Albumin Triglycerides Lipase Arterial Blood Glucose 188 H Arterial Blood Ionized Calcium Urine WBC (Auto) Coronavirus (PCR) SARS-CoV-2 IgG Ab Crossmatch 06/14/20 06/14/20 06/14/20 07:15 11:30 11:50 WBC RBC Hgb Hct MCV MCH MCHC RDW Lymph % (Auto) Lymph # (Auto) [place] # (Auto) Baso # (Auto) Seg Neutrophils % Seg Neuts % (Manual) Lymphocytes % (Manual) Nucleated RBC % Seg Neutrophils # Seg Neutrophils # Man Lymphocytes # (Manual) Monocytes # (Manual) PT INR APTT D-Dimer ABG pH POC ABG pCO2 POC ABG pO2 ABG pO2 ABG HCO3 ABG O2 Saturation ABG Base Excess ABG Hemoglobin ABG Oxyhemoglobin ABG Sodium ABG Potassium ABG Chloride ABG Glucose Oxyhemoglobin Sodium 135 L Potassium 3.5 L Chloride 90.4 L Carbon Dioxide 38 H BUN Creatinine 0.5 L Glucose 190 H POC Glucose 176 H Lactic Acid Calcium Magnesium Ferritin 1496.0 H Total Bilirubin Direct Bilirubin AST ALT 81 H Alkaline Phosphatase Lactate Dehydrogenase C-Reactive Protein Total Protein Albumin 2.9 L Triglycerides Lipase Arterial Blood Glucose Arterial Blood Ionized Calcium Urine WBC (Auto) Coronavirus (PCR) SARS-CoV-2 IgG Ab Crossmatch 06/14/20 06/15/20 06/15/20 23:31 04:00 05:00 WBC RBC Hgb Hct MCV MCH MCHC RDW Lymph % (Auto) Lymph # (Auto) [place] # (Auto) Baso # (Auto) Seg Neutrophils % Seg Neuts % (Manual) Lymphocytes % (Manual) Nucleated RBC % Seg Neutrophils # Seg Neutrophils # Man Lymphocytes # (Manual) Monocytes # (Manual) PT INR APTT D-Dimer ABG pH POC ABG pCO2 POC ABG pO2 ABG pO2 ABG HCO3 ABG O2 Saturation ABG Base Excess ABG Hemoglobin ABG Oxyhemoglobin ABG Sodium ABG Potassium ABG Chloride ABG Glucose Oxyhemoglobin Sodium 133 L Potassium Chloride 91.1 L Carbon Dioxide 34 H BUN Creatinine 0.4 L Glucose 159 H POC Glucose 200 H Lactic Acid Calcium Magnesium Ferritin Total Bilirubin 2.00 H Direct Bilirubin AST 47 H ALT 77 H Alkaline Phosphatase Lactate Dehydrogenase C-Reactive Protein Total Protein Albumin 2.6 L Triglycerides 152 H Lipase Arterial Blood Glucose Arterial Blood Ionized Calcium Urine WBC (Auto) Coronavirus (PCR) SARS-CoV-2 IgG Ab Crossmatch 06/15/20 06/15/20 06/15/20 05:35 06:27 11:38 WBC RBC Hgb Hct MCV MCH MCHC RDW Lymph % (Auto) Lymph # (Auto) [place] # (Auto) Baso # (Auto) Seg Neutrophils % Seg Neuts % (Manual) Lymphocytes % (Manual) Nucleated RBC % Seg Neutrophils # Seg Neutrophils # Man Lymphocytes # (Manual) Monocytes # (Manual) PT INR APTT D-Dimer ABG pH POC ABG pCO2 61.0 H POC ABG pO2 67.9 L ABG pO2 ABG HCO3 ABG O2 Saturation ABG Base Excess ABG Hemoglobin 10.4 L ABG Oxyhemoglobin ABG Sodium 132.7 L ABG Potassium 3.3 L ABG Chloride 92.0 L ABG Glucose 158 H Oxyhemoglobin Sodium Potassium Chloride Carbon Dioxide BUN Creatinine Glucose POC Glucose 148 H 197 H Lactic Acid Calcium Magnesium Ferritin Total Bilirubin Direct Bilirubin AST ALT Alkaline Phosphatase Lactate Dehydrogenase C-Reactive Protein Total Protein Albumin Triglycerides Lipase Arterial Blood Glucose 158 H Arterial Blood Ionized Calcium Urine WBC (Auto) Coronavirus (PCR) SARS-CoV-2 IgG Ab Crossmatch 06/15/20 06/15/20 06/16/20 17:29 Unknown 00:01 WBC 20.7 H RBC 2.57 L Hgb 8.9 L Hct 25.8 L MCV 101 H MCH 35 H MCHC 35 H RDW 16.0 H Lymph % (Auto) Lymph # (Auto) [place] # (Auto) Baso # (Auto) Seg Neutrophils % Seg Neuts % (Manual) 83.0 H Lymphocytes % (Manual) 8.0 L Nucleated RBC % Seg Neutrophils # Seg Neutrophils # Man 17.2 H Lymphocytes # (Manual) Monocytes # (Manual) 1.2 H PT INR APTT D-Dimer ABG pH POC ABG pCO2 POC ABG pO2 ABG pO2 ABG HCO3 ABG O2 Saturation ABG Base Excess ABG Hemoglobin ABG Oxyhemoglobin ABG Sodium ABG Potassium ABG Chloride ABG Glucose Oxyhemoglobin Sodium Potassium Chloride Carbon Dioxide BUN Creatinine Glucose POC Glucose 231 H 257 H Lactic Acid Calcium Magnesium Ferritin Total Bilirubin Direct Bilirubin AST ALT Alkaline Phosphatase Lactate Dehydrogenase C-Reactive Protein Total Protein Albumin Triglycerides Lipase Arterial Blood Glucose Arterial Blood Ionized Calcium Urine WBC (Auto) Coronavirus (PCR) SARS-CoV-2 IgG Ab Crossmatch 06/16/20 06/16/20 06/16/20 04:00 04:00 05:22 WBC 13.8 H RBC 2.03 L Hgb 7.6 L Hct 20.7 L MCV 102 H MCH 37 H MCHC 37 H RDW 16.2 H Lymph % (Auto) 4.4 L Lymph # (Auto) 0.6 L [place] # (Auto) Baso # (Auto) Seg Neutrophils % Seg Neuts % (Manual) Lymphocytes % (Manual) Nucleated RBC % Seg Neutrophils # 12.7 H Seg Neutrophils # Man Lymphocytes # (Manual) Monocytes # (Manual) PT INR APTT D-Dimer ABG pH POC ABG pCO2 POC ABG pO2 ABG pO2 ABG HCO3 ABG O2 Saturation ABG Base Excess ABG Hemoglobin ABG Oxyhemoglobin ABG Sodium ABG Potassium ABG Chloride ABG Glucose Oxyhemoglobin Sodium 130 L Potassium Chloride 88.9 L Carbon Dioxide 36 H BUN Creatinine 0.3 L Glucose 276 H POC Glucose 250 H Lactic Acid Calcium Magnesium Ferritin Total Bilirubin Direct Bilirubin AST ALT Alkaline Phosphatase Lactate Dehydrogenase C-Reactive Protein Total Protein Albumin Triglycerides Lipase Arterial Blood Glucose Arterial Blood Ionized Calcium Urine WBC (Auto) Coronavirus (PCR) SARS-CoV-2 IgG Ab Crossmatch 06/16/20 06/16/20 06/17/20 12:44 18:18 00:39 WBC RBC Hgb Hct MCV MCH MCHC RDW Lymph % (Auto) Lymph # (Auto) [place] # (Auto) Baso # (Auto) Seg Neutrophils % Seg Neuts % (Manual) Lymphocytes % (Manual) Nucleated RBC % Seg Neutrophils # Seg Neutrophils # Man Lymphocytes # (Manual) Monocytes # (Manual) PT INR APTT D-Dimer ABG pH POC ABG pCO2 POC ABG pO2 ABG pO2 ABG HCO3 ABG O2 Saturation ABG Base Excess ABG Hemoglobin ABG Oxyhemoglobin ABG Sodium ABG Potassium ABG Chloride ABG Glucose Oxyhemoglobin Sodium Potassium Chloride Carbon Dioxide BUN Creatinine Glucose POC Glucose 279 H 239 H 247 H Lactic Acid Calcium Magnesium Ferritin Total Bilirubin Direct Bilirubin AST ALT Alkaline Phosphatase Lactate Dehydrogenase C-Reactive Protein Total Protein Albumin Triglycerides Lipase Arterial Blood Glucose Arterial Blood Ionized Calcium Urine WBC (Auto) Coronavirus (PCR) SARS-CoV-2 IgG Ab Crossmatch 06/17/20 06/17/20 06/17/20 03:40 04:08 10:54 WBC RBC Hgb Hct MCV MCH MCHC RDW Lymph % (Auto) Lymph # (Auto) [place] # (Auto) Baso # (Auto) Seg Neutrophils % Seg Neuts % (Manual) Lymphocytes % (Manual) Nucleated RBC % Seg Neutrophils # Seg Neutrophils # Man Lymphocytes # (Manual) Monocytes # (Manual) PT INR APTT D-Dimer ABG pH POC ABG pCO2 65.7 H POC ABG pO2 ABG pO2 ABG HCO3 ABG O2 Saturation ABG Base Excess ABG Hemoglobin 11.9 L ABG Oxyhemoglobin ABG Sodium ABG Potassium ABG Chloride 93.0 L ABG Glucose 244 H Oxyhemoglobin Sodium Potassium Chloride Carbon Dioxide BUN Creatinine Glucose POC Glucose 221 H 248 H Lactic Acid Calcium Magnesium Ferritin Total Bilirubin Direct Bilirubin AST ALT Alkaline Phosphatase Lactate Dehydrogenase C-Reactive Protein Total Protein Albumin Triglycerides Lipase Arterial Blood Glucose 244 H Arterial Blood Ionized Calcium Urine WBC (Auto) Coronavirus (PCR) SARS-CoV-2 IgG Ab Crossmatch 06/17/20 06/17/20 06/17/20 17:47 23:11 23:29 WBC RBC Hgb Hct MCV MCH MCHC RDW Lymph % (Auto) Lymph # (Auto) [place] # (Auto) Baso # (Auto) Seg Neutrophils % Seg Neuts % (Manual) Lymphocytes % (Manual) Nucleated RBC % Seg Neutrophils # Seg Neutrophils # Man Lymphocytes # (Manual) Monocytes # (Manual) PT INR APTT D-Dimer ABG pH POC ABG pCO2 85.2 H POC ABG pO2 48.4 L ABG pO2 ABG HCO3 ABG O2 Saturation ABG Base Excess ABG Hemoglobin 8.0 L ABG Oxyhemoglobin ABG Sodium ABG Potassium ABG Chloride 95.0 L ABG Glucose 292 H Oxyhemoglobin Sodium Potassium Chloride Carbon Dioxide BUN Creatinine Glucose POC Glucose 245 H 252 H Lactic Acid Calcium Magnesium Ferritin Total Bilirubin Direct Bilirubin AST ALT Alkaline Phosphatase Lactate Dehydrogenase C-Reactive Protein Total Protein Albumin Triglycerides Lipase Arterial Blood Glucose 292 H Arterial Blood Ionized Calcium Urine WBC (Auto) Coronavirus (PCR) SARS-CoV-2 IgG Ab Crossmatch 06/18/20 06/18/20 06/18/20 03:14 05:34 11:47 WBC RBC Hgb Hct MCV MCH MCHC RDW Lymph % (Auto) Lymph # (Auto) [place] # (Auto) Baso # (Auto) Seg Neutrophils % Seg Neuts % (Manual) Lymphocytes % (Manual) Nucleated RBC % Seg Neutrophils # Seg Neutrophils # Man Lymphocytes # (Manual) Monocytes # (Manual) PT INR APTT D-Dimer ABG pH POC ABG pCO2 65.4 H POC ABG pO2 160.7 H ABG pO2 ABG HCO3 ABG O2 Saturation ABG Base Excess ABG Hemoglobin 7.8 L ABG Oxyhemoglobin ABG Sodium ABG Potassium ABG Chloride 95.0 L ABG Glucose 251 H Oxyhemoglobin Sodium Potassium Chloride Carbon Dioxide BUN Creatinine Glucose POC Glucose 243 H 263 H Lactic Acid Calcium Magnesium Ferritin Total Bilirubin Direct Bilirubin AST ALT Alkaline Phosphatase Lactate Dehydrogenase C-Reactive Protein Total Protein Albumin Triglycerides Lipase Arterial Blood Glucose 251 H Arterial Blood Ionized Calcium Urine WBC (Auto) Coronavirus (PCR) SARS-CoV-2 IgG Ab Crossmatch 06/18/20 06/18/20 06/19/20 17:31 23:33 04:32 WBC RBC Hgb Hct MCV MCH MCHC RDW Lymph % (Auto) Lymph # (Auto) [place] # (Auto) Baso # (Auto) Seg Neutrophils % Seg Neuts % (Manual) Lymphocytes % (Manual) Nucleated RBC % Seg Neutrophils # Seg Neutrophils # Man Lymphocytes # (Manual) Monocytes # (Manual) PT INR APTT D-Dimer ABG pH POC ABG pCO2 83.1 H POC ABG pO2 65.8 L ABG pO2 ABG HCO3 ABG O2 Saturation ABG Base Excess ABG Hemoglobin 8.9 L ABG Oxyhemoglobin ABG Sodium ABG Potassium ABG Chloride 96.0 L ABG Glucose 297 H Oxyhemoglobin Sodium Potassium Chloride Carbon Dioxide BUN Creatinine Glucose POC Glucose 286 H 238 H Lactic Acid Calcium Magnesium Ferritin Total Bilirubin Direct Bilirubin AST ALT Alkaline Phosphatase Lactate Dehydrogenase C-Reactive Protein Total Protein Albumin Triglycerides Lipase Arterial Blood Glucose 297 H Arterial Blood Ionized Calcium Urine WBC (Auto) Coronavirus (PCR) SARS-CoV-2 IgG Ab Crossmatch 06/19/20 06/19/20 06/19/20 05:55 11:20 17:12 WBC RBC Hgb Hct MCV MCH MCHC RDW Lymph % (Auto) Lymph # (Auto) [place] # (Auto) Baso # (Auto) Seg Neutrophils % Seg Neuts % (Manual) Lymphocytes % (Manual) Nucleated RBC % Seg Neutrophils # Seg Neutrophils # Man Lymphocytes # (Manual) Monocytes # (Manual) PT INR APTT D-Dimer ABG pH POC ABG pCO2 POC ABG pO2 ABG pO2 ABG HCO3 ABG O2 Saturation ABG Base Excess ABG Hemoglobin ABG Oxyhemoglobin ABG Sodium ABG Potassium ABG Chloride ABG Glucose Oxyhemoglobin Sodium Potassium Chloride Carbon Dioxide BUN Creatinine Glucose POC Glucose 274 H 282 H 298 H Lactic Acid Calcium Magnesium Ferritin Total Bilirubin Direct Bilirubin AST ALT Alkaline Phosphatase Lactate Dehydrogenase C-Reactive Protein Total Protein Albumin Triglycerides Lipase Arterial Blood Glucose Arterial Blood Ionized Calcium Urine WBC (Auto) Coronavirus (PCR) SARS-CoV-2 IgG Ab Crossmatch 06/19/20 06/20/20 06/20/20 23:08 03:33 06:01 WBC RBC Hgb Hct MCV MCH MCHC RDW Lymph % (Auto) Lymph # (Auto) [place] # (Auto) Baso # (Auto) Seg Neutrophils % Seg Neuts % (Manual) Lymphocytes % (Manual) Nucleated RBC % Seg Neutrophils # Seg Neutrophils # Man Lymphocytes # (Manual) Monocytes # (Manual) PT INR APTT D-Dimer ABG pH POC ABG pCO2 POC ABG pO2 ABG pO2 69.9 L ABG HCO3 50.8 H ABG O2 Saturation ABG Base Excess 24.2 H ABG Hemoglobin 5.8 L ABG Oxyhemoglobin ABG Sodium ABG Potassium ABG Chloride ABG Glucose Oxyhemoglobin Sodium Potassium Chloride Carbon Dioxide BUN Creatinine Glucose POC Glucose 293 H 182 H Lactic Acid Calcium Magnesium Ferritin Total Bilirubin Direct Bilirubin AST ALT Alkaline Phosphatase Lactate Dehydrogenase C-Reactive Protein Total Protein Albumin Triglycerides Lipase Arterial Blood Glucose Arterial Blood Ionized Calcium Urine WBC (Auto) Coronavirus (PCR) SARS-CoV-2 IgG Ab Crossmatch 06/20/20 06/20/20 06/20/20 11:47 17:46 23:37 WBC RBC Hgb Hct MCV MCH MCHC RDW Lymph % (Auto) Lymph # (Auto) [place] # (Auto) Baso # (Auto) Seg Neutrophils % Seg Neuts % (Manual) Lymphocytes % (Manual) Nucleated RBC % Seg Neutrophils # Seg Neutrophils # Man Lymphocytes # (Manual) Monocytes # (Manual) PT INR APTT D-Dimer ABG pH POC ABG pCO2 POC ABG pO2 ABG pO2 ABG HCO3 ABG O2 Saturation ABG Base Excess ABG Hemoglobin ABG Oxyhemoglobin ABG Sodium ABG Potassium ABG Chloride ABG Glucose Oxyhemoglobin Sodium Potassium Chloride Carbon Dioxide BUN Creatinine Glucose POC Glucose 170 H 215 H 256 H Lactic Acid Calcium Magnesium Ferritin Total Bilirubin Direct Bilirubin AST ALT Alkaline Phosphatase Lactate Dehydrogenase C-Reactive Protein Total Protein Albumin Triglycerides Lipase Arterial Blood Glucose Arterial Blood Ionized Calcium Urine WBC (Auto) Coronavirus (PCR) SARS-CoV-2 IgG Ab Crossmatch 06/21/20 06/21/20 06/21/20 04:00 05:14 05:51 WBC RBC Hgb Hct MCV MCH MCHC RDW Lymph % (Auto) Lymph # (Auto) [place] # (Auto) Baso # (Auto) Seg Neutrophils % Seg Neuts % (Manual) Lymphocytes % (Manual) Nucleated RBC % Seg Neutrophils # Seg Neutrophils # Man Lymphocytes # (Manual) Monocytes # (Manual) PT INR APTT D-Dimer ABG pH 7.474 H POC ABG pCO2 POC ABG pO2 ABG pO2 ABG HCO3 52.1 H ABG O2 Saturation ABG Base Excess 23.3 H ABG Hemoglobin 5.3 L ABG Oxyhemoglobin ABG Sodium ABG Potassium ABG Chloride ABG Glucose Oxyhemoglobin 93.8 L Sodium Potassium Chloride Carbon Dioxide BUN Creatinine Glucose POC Glucose 122 H 129 H Lactic Acid Calcium Magnesium Ferritin Total Bilirubin Direct Bilirubin AST ALT Alkaline Phosphatase Lactate Dehydrogenase C-Reactive Protein Total Protein Albumin Triglycerides Lipase Arterial Blood Glucose Arterial Blood Ionized Calcium Urine WBC (Auto) Coronavirus (PCR) SARS-CoV-2 IgG Ab Crossmatch 06/21/20 06/21/20 06/21/20 11:00 11:00 11:42 WBC 14.2 H RBC 1.85 L Hgb 6.2 L Hct 19.5 L* MCV 105 H MCH 34 H MCHC RDW 18.0 H Lymph % (Auto) Lymph # (Auto) [place] # (Auto) Baso # (Auto) Seg Neutrophils % Seg Neuts % (Manual) Lymphocytes % (Manual) Nucleated RBC % Seg Neutrophils # Seg Neutrophils # Man Lymphocytes # (Manual) Monocytes # (Manual) PT INR APTT D-Dimer ABG pH POC ABG pCO2 POC ABG pO2 ABG pO2 ABG HCO3 ABG O2 Saturation ABG Base Excess ABG Hemoglobin ABG Oxyhemoglobin ABG Sodium ABG Potassium ABG Chloride ABG Glucose Oxyhemoglobin Sodium 147 H Potassium Chloride Carbon Dioxide 51 H* BUN 31 H Creatinine 0.5 L Glucose 224 H POC Glucose 217 H Lactic Acid Calcium Magnesium Ferritin Total Bilirubin Direct Bilirubin AST ALT Alkaline Phosphatase Lactate Dehydrogenase C-Reactive Protein Total Protein Albumin Triglycerides Lipase Arterial Blood Glucose Arterial Blood Ionized Calcium Urine WBC (Auto) Coronavirus (PCR) SARS-CoV-2 IgG Ab Crossmatch 06/21/20 06/21/20 06/21/20 14:18 14:30 18:36 WBC RBC Hgb Hct MCV MCH MCHC RDW Lymph % (Auto) Lymph # (Auto) [place] # (Auto) Baso # (Auto) Seg Neutrophils % Seg Neuts % (Manual) Lymphocytes % (Manual) Nucleated RBC % Seg Neutrophils # Seg Neutrophils # Man Lymphocytes # (Manual) Monocytes # (Manual) PT 15.1 H INR 1.19 H APTT D-Dimer ABG pH POC ABG pCO2 POC ABG pO2 ABG pO2 ABG HCO3 ABG O2 Saturation ABG Base Excess ABG Hemoglobin ABG Oxyhemoglobin ABG Sodium ABG Potassium ABG Chloride ABG Glucose Oxyhemoglobin Sodium Potassium Chloride Carbon Dioxide BUN Creatinine Glucose POC Glucose 185 H Lactic Acid Calcium Magnesium Ferritin Total Bilirubin Direct Bilirubin AST ALT Alkaline Phosphatase Lactate Dehydrogenase C-Reactive Protein Total Protein Albumin Triglycerides Lipase Arterial Blood Glucose Arterial Blood Ionized Calcium Urine WBC (Auto) Coronavirus (PCR) SARS-CoV-2 IgG Ab Crossmatch See Detail 06/21/20 06/22/20 06/22/20 21:14 03:50 04:00 WBC RBC Hgb Hct MCV MCH MCHC RDW Lymph % (Auto) Lymph # (Auto) [place] # (Auto) Baso # (Auto) Seg Neutrophils % Seg Neuts % (Manual) Lymphocytes % (Manual) Nucleated RBC % Seg Neutrophils # Seg Neutrophils # Man Lymphocytes # (Manual) Monocytes # (Manual) PT INR APTT D-Dimer ABG pH 7.451 H POC ABG pCO2 POC ABG pO2 ABG pO2 ABG HCO3 47.5 H ABG O2 Saturation ABG Base Excess 22.0 H ABG Hemoglobin < 5.1 L ABG Oxyhemoglobin ABG Sodium ABG Potassium ABG Chloride ABG Glucose Oxyhemoglobin 94.1 L Sodium 149 H Potassium 3.5 L Chloride Carbon Dioxide 42 H* D BUN 34 H Creatinine 0.4 L Glucose 219 H POC Glucose 250 H Lactic Acid Calcium Magnesium Ferritin Total Bilirubin Direct Bilirubin AST ALT Alkaline Phosphatase Lactate Dehydrogenase C-Reactive Protein Total Protein Albumin Triglycerides Lipase Arterial Blood Glucose Arterial Blood Ionized Calcium Urine WBC (Auto) Coronavirus (PCR) SARS-CoV-2 IgG Ab Crossmatch 06/22/20 06/22/20 06/22/20 12:16 14:29 17:56 WBC RBC Hgb Hct MCV MCH MCHC RDW Lymph % (Auto) Lymph # (Auto) [place] # (Auto) Baso # (Auto) Seg Neutrophils % Seg Neuts % (Manual) Lymphocytes % (Manual) Nucleated RBC % Seg Neutrophils # Seg Neutrophils # Man Lymphocytes # (Manual) Monocytes # (Manual) PT 11.8 L INR APTT 23.5 L D-Dimer ABG pH POC ABG pCO2 POC ABG pO2 ABG pO2 ABG HCO3 ABG O2 Saturation ABG Base Excess ABG Hemoglobin ABG Oxyhemoglobin ABG Sodium ABG Potassium ABG Chloride ABG Glucose Oxyhemoglobin Sodium Potassium Chloride Carbon Dioxide BUN Creatinine Glucose POC Glucose 215 H 215 H Lactic Acid Calcium Magnesium Ferritin Total Bilirubin Direct Bilirubin AST ALT Alkaline Phosphatase Lactate Dehydrogenase C-Reactive Protein Total Protein Albumin Triglycerides Lipase Arterial Blood Glucose Arterial Blood Ionized Calcium Urine WBC (Auto) Coronavirus (PCR) SARS-CoV-2 IgG Ab Crossmatch 06/22/20 06/22/20 06/22/20 23:36 23:45 Unknown WBC 14.1 H RBC 2.70 L Hgb 8.9 L 8.9 L Hct 26.9 L 27.2 L D MCV 101 H MCH 33 H MCHC RDW 17.7 H Lymph % (Auto) Lymph # (Auto) [place] # (Auto) Baso # (Auto) Seg Neutrophils % Seg Neuts % (Manual) 92.0 H Lymphocytes % (Manual) 5.0 L Nucleated RBC % Seg Neutrophils # Seg Neutrophils # Man 13.0 H Lymphocytes # (Manual) 0.7 L Monocytes # (Manual) PT INR APTT D-Dimer ABG pH POC ABG pCO2 POC ABG pO2 ABG pO2 ABG HCO3 ABG O2 Saturation ABG Base Excess ABG Hemoglobin ABG Oxyhemoglobin ABG Sodium ABG Potassium ABG Chloride ABG Glucose Oxyhemoglobin Sodium Potassium Chloride Carbon Dioxide BUN Creatinine Glucose POC Glucose 208 H Lactic Acid Calcium Magnesium Ferritin Total Bilirubin Direct Bilirubin AST ALT Alkaline Phosphatase Lactate Dehydrogenase C-Reactive Protein Total Protein Albumin Triglycerides Lipase Arterial Blood Glucose Arterial Blood Ionized Calcium Urine WBC (Auto) Coronavirus (PCR) SARS-CoV-2 IgG Ab Crossmatch 06/23/20 06/23/20 06/23/20 05:17 05:19 06:50 WBC RBC Hgb Hct MCV MCH MCHC RDW Lymph % (Auto) Lymph # (Auto) [place] # (Auto) Baso # (Auto) Seg Neutrophils % Seg Neuts % (Manual) Lymphocytes % (Manual) Nucleated RBC % Seg Neutrophils # Seg Neutrophils # Man Lymphocytes # (Manual) Monocytes # (Manual) PT INR APTT D-Dimer ABG pH POC ABG pCO2 69.7 H POC ABG pO2 63.3 L ABG pO2 ABG HCO3 ABG O2 Saturation ABG Base Excess ABG Hemoglobin 10.1 L ABG Oxyhemoglobin ABG Sodium ABG Potassium 3.3 L ABG Chloride ABG Glucose 226 H Oxyhemoglobin Sodium Potassium 3.0 L Chloride Carbon Dioxide 41 H* BUN 26 H Creatinine 0.4 L Glucose 209 H POC Glucose 200 H Lactic Acid Calcium Magnesium Ferritin Total Bilirubin Direct Bilirubin AST ALT Alkaline Phosphatase Lactate Dehydrogenase C-Reactive Protein Total Protein Albumin 2.9 L Triglycerides Lipase Arterial Blood Glucose 226 H Arterial Blood Ionized Calcium Urine WBC (Auto) Coronavirus (PCR) SARS-CoV-2 IgG Ab Crossmatch 06/23/20 06/23/20 06/23/20 09:41 12:04 18:16 WBC RBC Hgb 9.1 L Hct 28.0 L MCV MCH MCHC RDW Lymph % (Auto) Lymph # (Auto) [place] # (Auto) Baso # (Auto) Seg Neutrophils % Seg Neuts % (Manual) Lymphocytes % (Manual) Nucleated RBC % Seg Neutrophils # Seg Neutrophils # Man Lymphocytes # (Manual) Monocytes # (Manual) PT INR APTT D-Dimer ABG pH POC ABG pCO2 POC ABG pO2 ABG pO2 ABG HCO3 ABG O2 Saturation ABG Base Excess ABG Hemoglobin ABG Oxyhemoglobin ABG Sodium ABG Potassium ABG Chloride ABG Glucose Oxyhemoglobin Sodium Potassium Chloride Carbon Dioxide BUN Creatinine Glucose POC Glucose 146 H 162 H Lactic Acid Calcium Magnesium Ferritin Total Bilirubin Direct Bilirubin AST ALT Alkaline Phosphatase Lactate Dehydrogenase C-Reactive Protein Total Protein Albumin Triglycerides Lipase Arterial Blood Glucose Arterial Blood Ionized Calcium Urine WBC (Auto) Coronavirus (PCR) SARS-CoV-2 IgG Ab Crossmatch 06/23/20 06/23/20 06/24/20 23:24 23:41 02:39 WBC RBC Hgb 8.2 L 8.8 L Hct 24.9 L 26.8 L MCV MCH MCHC RDW Lymph % (Auto) Lymph # (Auto) [place] # (Auto) Baso # (Auto) Seg Neutrophils % Seg Neuts % (Manual) Lymphocytes % (Manual) Nucleated RBC % Seg Neutrophils # Seg Neutrophils # Man Lymphocytes # (Manual) Monocytes # (Manual) PT INR APTT D-Dimer ABG pH POC ABG pCO2 POC ABG pO2 ABG pO2 ABG HCO3 ABG O2 Saturation ABG Base Excess ABG Hemoglobin ABG Oxyhemoglobin ABG Sodium ABG Potassium ABG Chloride ABG Glucose Oxyhemoglobin Sodium Potassium Chloride Carbon Dioxide BUN Creatinine Glucose POC Glucose 248 H Lactic Acid Calcium Magnesium Ferritin Total Bilirubin Direct Bilirubin AST ALT Alkaline Phosphatase Lactate Dehydrogenase C-Reactive Protein Total Protein Albumin Triglycerides Lipase Arterial Blood Glucose Arterial Blood Ionized Calcium Urine WBC (Auto) Coronavirus (PCR) SARS-CoV-2 IgG Ab Crossmatch 06/24/20 06/24/20 06/24/20 02:39 02:45 05:31 WBC RBC Hgb Hct MCV MCH MCHC RDW Lymph % (Auto) Lymph # (Auto) [place] # (Auto) Baso # (Auto) Seg Neutrophils % Seg Neuts % (Manual) Lymphocytes % (Manual) Nucleated RBC % Seg Neutrophils # Seg Neutrophils # Man Lymphocytes # (Manual) Monocytes # (Manual) PT INR APTT D-Dimer ABG pH POC ABG pCO2 66.9 H POC ABG pO2 109.7 H ABG pO2 ABG HCO3 ABG O2 Saturation ABG Base Excess ABG Hemoglobin 9.7 L ABG Oxyhemoglobin ABG Sodium 135.0 L ABG Potassium ABG Chloride 97.0 L ABG Glucose 277 H Oxyhemoglobin Sodium 136 L Potassium Chloride 95.0 L Carbon Dioxide 34 H D BUN 24 H Creatinine 0.3 L Glucose 260 H POC Glucose 164 H Lactic Acid Calcium Magnesium Ferritin Total Bilirubin Direct Bilirubin AST ALT Alkaline Phosphatase Lactate Dehydrogenase C-Reactive Protein Total Protein 5.2 L Albumin 2.6 L Triglycerides Lipase Arterial Blood Glucose 277 H Arterial Blood Ionized Calcium Urine WBC (Auto) Coronavirus (PCR) SARS-CoV-2 IgG Ab Crossmatch 06/24/20 06/24/20 06/24/20 10:00 11:49 17:39 WBC RBC Hgb 8.9 L Hct 26.5 L MCV MCH MCHC RDW Lymph % (Auto) Lymph # (Auto) [place] # (Auto) Baso # (Auto) Seg Neutrophils % Seg Neuts % (Manual) Lymphocytes % (Manual) Nucleated RBC % Seg Neutrophils # Seg Neutrophils # Man Lymphocytes # (Manual) Monocytes # (Manual) PT INR APTT D-Dimer ABG pH POC ABG pCO2 POC ABG pO2 ABG pO2 ABG HCO3 ABG O2 Saturation ABG Base Excess ABG Hemoglobin ABG Oxyhemoglobin ABG Sodium ABG Potassium ABG Chloride ABG Glucose Oxyhemoglobin Sodium Potassium Chloride Carbon Dioxide BUN Creatinine Glucose POC Glucose 198 H 223 H Lactic Acid Calcium Magnesium Ferritin Total Bilirubin Direct Bilirubin AST ALT Alkaline Phosphatase Lactate Dehydrogenase C-Reactive Protein Total Protein Albumin Triglycerides Lipase Arterial Blood Glucose Arterial Blood Ionized Calcium Urine WBC (Auto) Coronavirus (PCR) SARS-CoV-2 IgG Ab Crossmatch 06/24/20 06/25/20 06/25/20 23:56 02:16 04:08 WBC RBC Hgb Hct MCV MCH MCHC RDW Lymph % (Auto) Lymph # (Auto) [place] # (Auto) Baso # (Auto) Seg Neutrophils % Seg Neuts % (Manual) Lymphocytes % (Manual) Nucleated RBC % Seg Neutrophils # Seg Neutrophils # Man Lymphocytes # (Manual) Monocytes # (Manual) PT INR APTT D-Dimer ABG pH 7.454 H POC ABG pCO2 56.9 H POC ABG pO2 61.0 L ABG pO2 ABG HCO3 ABG O2 Saturation ABG Base Excess ABG Hemoglobin ABG Oxyhemoglobin ABG Sodium 134.3 L ABG Potassium ABG Chloride 92.0 L ABG Glucose 246 H Oxyhemoglobin Sodium 134 L Potassium Chloride 89.7 L Carbon Dioxide 36 H BUN Creatinine 0.3 L Glucose 254 H POC Glucose 225 H Lactic Acid Calcium Magnesium Ferritin Total Bilirubin Direct Bilirubin AST ALT Alkaline Phosphatase Lactate Dehydrogenase C-Reactive Protein Total Protein Albumin 2.9 L Triglycerides Lipase Arterial Blood Glucose 246 H Arterial Blood Ionized Calcium Urine WBC (Auto) Coronavirus (PCR) SARS-CoV-2 IgG Ab Crossmatch 06/25/20 06/25/20 06/25/20 05:44 11:35 17:33 WBC RBC Hgb Hct MCV MCH MCHC RDW Lymph % (Auto) Lymph # (Auto) [place] # (Auto) Baso # (Auto) Seg Neutrophils % Seg Neuts % (Manual) Lymphocytes % (Manual) Nucleated RBC % Seg Neutrophils # Seg Neutrophils # Man Lymphocytes # (Manual) Monocytes # (Manual) PT INR APTT D-Dimer ABG pH POC ABG pCO2 POC ABG pO2 ABG pO2 ABG HCO3 ABG O2 Saturation ABG Base Excess ABG Hemoglobin ABG Oxyhemoglobin ABG Sodium ABG Potassium ABG Chloride ABG Glucose Oxyhemoglobin Sodium Potassium Chloride Carbon Dioxide BUN Creatinine Glucose POC Glucose 170 H 175 H 229 H Lactic Acid Calcium Magnesium Ferritin Total Bilirubin Direct Bilirubin AST ALT Alkaline Phosphatase Lactate Dehydrogenase C-Reactive Protein Total Protein Albumin Triglycerides Lipase Arterial Blood Glucose Arterial Blood Ionized Calcium Urine WBC (Auto) Coronavirus (PCR) SARS-CoV-2 IgG Ab Crossmatch 06/25/20 06/26/20 06/26/20 23:55 02:17 02:17 WBC RBC Hgb 10.0 L Hct 30.4 L MCV MCH MCHC RDW Lymph % (Auto) Lymph # (Auto) [place] # (Auto) Baso # (Auto) Seg Neutrophils % Seg Neuts % (Manual) Lymphocytes % (Manual) Nucleated RBC % Seg Neutrophils # Seg Neutrophils # Man Lymphocytes # (Manual) Monocytes # (Manual) PT INR APTT D-Dimer ABG pH POC ABG pCO2 POC ABG pO2 ABG pO2 ABG HCO3 ABG O2 Saturation ABG Base Excess ABG Hemoglobin ABG Oxyhemoglobin ABG Sodium ABG Potassium ABG Chloride ABG Glucose Oxyhemoglobin Sodium 136 L Potassium Chloride 90.1 L Carbon Dioxide 39 H BUN Creatinine 0.2 L Glucose 232 H POC Glucose 192 H Lactic Acid Calcium Magnesium Ferritin Total Bilirubin Direct Bilirubin AST ALT Alkaline Phosphatase Lactate Dehydrogenase C-Reactive Protein Total Protein 6.1 L Albumin 2.9 L Triglycerides Lipase Arterial Blood Glucose Arterial Blood Ionized Calcium Urine WBC (Auto) Coronavirus (PCR) SARS-CoV-2 IgG Ab Crossmatch 06/26/20 06/26/20 06/26/20 04:15 04:49 05:28 WBC RBC Hgb Hct MCV MCH MCHC RDW Lymph % (Auto) Lymph # (Auto) [place] # (Auto) Baso # (Auto) Seg Neutrophils % Seg Neuts % (Manual) Lymphocytes % (Manual) Nucleated RBC % Seg Neutrophils # Seg Neutrophils # Man Lymphocytes # (Manual) Monocytes # (Manual) PT INR APTT D-Dimer ABG pH 7.453 H POC ABG pCO2 59.6 H POC ABG pO2 ABG pO2 ABG HCO3 ABG O2 Saturation ABG Base Excess ABG Hemoglobin 10.0 L ABG Oxyhemoglobin ABG Sodium 134.2 L ABG Potassium 3.3 L ABG Chloride 92.0 L ABG Glucose 305 H Oxyhemoglobin Sodium Potassium Chloride Carbon Dioxide BUN Creatinine Glucose POC Glucose 234 H Lactic Acid Calcium Magnesium Ferritin Total Bilirubin Direct Bilirubin AST ALT Alkaline Phosphatase Lactate Dehydrogenase C-Reactive Protein Total Protein Albumin Triglycerides 203 H Lipase Arterial Blood Glucose 305 H Arterial Blood Ionized Calcium Urine WBC (Auto) Coronavirus (PCR) SARS-CoV-2 IgG Ab Crossmatch 06/26/20 06/26/20 06/26/20 11:58 17:58 21:32 WBC RBC Hgb Hct MCV MCH MCHC RDW Lymph % (Auto) Lymph # (Auto) [place] # (Auto) Baso # (Auto) Seg Neutrophils % Seg Neuts % (Manual) Lymphocytes % (Manual) Nucleated RBC % Seg Neutrophils # Seg Neutrophils # Man Lymphocytes # (Manual) Monocytes # (Manual) PT INR APTT D-Dimer ABG pH POC ABG pCO2 POC ABG pO2 ABG pO2 ABG HCO3 ABG O2 Saturation ABG Base Excess ABG Hemoglobin ABG Oxyhemoglobin ABG Sodium ABG Potassium ABG Chloride ABG Glucose Oxyhemoglobin Sodium Potassium Chloride Carbon Dioxide BUN Creatinine Glucose POC Glucose 198 H 193 H 191 H Lactic Acid Calcium Magnesium Ferritin Total Bilirubin Direct Bilirubin AST ALT Alkaline Phosphatase Lactate Dehydrogenase C-Reactive Protein Total Protein Albumin Triglycerides Lipase Arterial Blood Glucose Arterial Blood Ionized Calcium Urine WBC (Auto) Coronavirus (PCR) SARS-CoV-2 IgG Ab Crossmatch 06/26/20 06/27/20 06/27/20 23:40 04:35 05:32 WBC RBC Hgb Hct MCV MCH MCHC RDW Lymph % (Auto) Lymph # (Auto) [place] # (Auto) Baso # (Auto) Seg Neutrophils % Seg Neuts % (Manual) Lymphocytes % (Manual) Nucleated RBC % Seg Neutrophils # Seg Neutrophils # Man Lymphocytes # (Manual) Monocytes # (Manual) PT INR APTT D-Dimer ABG pH 7.464 H POC ABG pCO2 60.8 H POC ABG pO2 ABG pO2 ABG HCO3 ABG O2 Saturation ABG Base Excess ABG Hemoglobin 10.1 L ABG Oxyhemoglobin ABG Sodium ABG Potassium 2.9 L ABG Chloride 92.0 L ABG Glucose 298 H Oxyhemoglobin Sodium Potassium Chloride Carbon Dioxide BUN Creatinine Glucose POC Glucose 241 H 211 H Lactic Acid Calcium Magnesium Ferritin Total Bilirubin Direct Bilirubin AST ALT Alkaline Phosphatase Lactate Dehydrogenase C-Reactive Protein Total Protein Albumin Triglycerides Lipase Arterial Blood Glucose 298 H Arterial Blood Ionized Calcium Urine WBC (Auto) Coronavirus (PCR) SARS-CoV-2 IgG Ab Crossmatch 06/27/20 06/27/20 06/27/20 12:37 18:08 20:52 WBC RBC Hgb Hct MCV MCH MCHC RDW Lymph % (Auto) Lymph # (Auto) [place] # (Auto) Baso # (Auto) Seg Neutrophils % Seg Neuts % (Manual) Lymphocytes % (Manual) Nucleated RBC % Seg Neutrophils # Seg Neutrophils # Man Lymphocytes # (Manual) Monocytes # (Manual) PT INR APTT D-Dimer ABG pH POC ABG pCO2 POC ABG pO2 ABG pO2 ABG HCO3 ABG O2 Saturation ABG Base Excess ABG Hemoglobin ABG Oxyhemoglobin ABG Sodium ABG Potassium ABG Chloride ABG Glucose Oxyhemoglobin Sodium Potassium Chloride Carbon Dioxide BUN Creatinine Glucose POC Glucose 182 H 197 H 195 H Lactic Acid Calcium Magnesium Ferritin Total Bilirubin Direct Bilirubin AST ALT Alkaline Phosphatase Lactate Dehydrogenase C-Reactive Protein Total Protein Albumin Triglycerides Lipase Arterial Blood Glucose Arterial Blood Ionized Calcium Urine WBC (Auto) Coronavirus (PCR) SARS-CoV-2 IgG Ab Crossmatch 06/27/20 06/28/20 06/28/20 Unknown 04:17 04:50 WBC RBC Hgb Hct MCV MCH MCHC RDW Lymph % (Auto) Lymph # (Auto) [place] # (Auto) Baso # (Auto) Seg Neutrophils % Seg Neuts % (Manual) Lymphocytes % (Manual) Nucleated RBC % Seg Neutrophils # Seg Neutrophils # Man Lymphocytes # (Manual) Monocytes # (Manual) PT INR APTT D-Dimer ABG pH POC ABG pCO2 58.6 H POC ABG pO2 60.1 L ABG pO2 ABG HCO3 ABG O2 Saturation ABG Base Excess ABG Hemoglobin 10.0 L ABG Oxyhemoglobin ABG Sodium 125.3 L ABG Potassium ABG Chloride 93.0 L ABG Glucose 308 H Oxyhemoglobin Sodium Potassium 2.9 L* Chloride 93.4 L Carbon Dioxide 42 H* BUN Creatinine 0.3 L Glucose 211 H POC Glucose 252 H Lactic Acid Calcium 8.1 L Magnesium Ferritin Total Bilirubin Direct Bilirubin AST ALT Alkaline Phosphatase Lactate Dehydrogenase C-Reactive Protein Total Protein 5.1 L Albumin 2.4 L Triglycerides Lipase Arterial Blood Glucose 308 H Arterial Blood Ionized Calcium Urine WBC (Auto) Coronavirus (PCR) SARS-CoV-2 IgG Ab Crossmatch 06/28/20 06/28/20 06/28/20 06:35 06:35 11:36 WBC 18.9 H RBC 2.85 L Hgb 9.5 L Hct 28.4 L MCV 100 H MCH 33 H MCHC RDW 17.3 H Lymph % (Auto) Lymph # (Auto) [place] # (Auto) Baso # (Auto) Seg Neutrophils % 88.6 H Seg Neuts % (Manual) 95.0 H Lymphocytes % (Manual) 1.0 L Nucleated RBC % Seg Neutrophils # 15.9 H Seg Neutrophils # Man 18.0 H Lymphocytes # (Manual) 0.2 L Monocytes # (Manual) PT INR APTT D-Dimer ABG pH POC ABG pCO2 POC ABG pO2 ABG pO2 ABG HCO3 ABG O2 Saturation ABG Base Excess ABG Hemoglobin ABG Oxyhemoglobin ABG Sodium ABG Potassium ABG Chloride ABG Glucose Oxyhemoglobin Sodium Potassium Chloride 94.2 L Carbon Dioxide 38 H BUN Creatinine 0.3 L Glucose 228 H POC Glucose 243 H Lactic Acid Calcium Magnesium Ferritin Total Bilirubin Direct Bilirubin AST ALT Alkaline Phosphatase Lactate Dehydrogenase C-Reactive Protein Total Protein 6.1 L Albumin 2.7 L Triglycerides Lipase Arterial Blood Glucose Arterial Blood Ionized Calcium Urine WBC (Auto) Coronavirus (PCR) SARS-CoV-2 IgG Ab Crossmatch 06/28/20 06/28/20 06/29/20 16:53 21:10 00:06 WBC RBC Hgb Hct MCV MCH MCHC RDW Lymph % (Auto) Lymph # (Auto) [place] # (Auto) Baso # (Auto) Seg Neutrophils % Seg Neuts % (Manual) Lymphocytes % (Manual) Nucleated RBC % Seg Neutrophils # Seg Neutrophils # Man Lymphocytes # (Manual) Monocytes # (Manual) PT INR APTT D-Dimer ABG pH POC ABG pCO2 POC ABG pO2 ABG pO2 ABG HCO3 ABG O2 Saturation ABG Base Excess ABG Hemoglobin ABG Oxyhemoglobin ABG Sodium ABG Potassium ABG Chloride ABG Glucose Oxyhemoglobin Sodium Potassium Chloride Carbon Dioxide BUN Creatinine Glucose POC Glucose 211 H 195 H 200 H Lactic Acid Calcium Magnesium Ferritin Total Bilirubin Direct Bilirubin AST ALT Alkaline Phosphatase Lactate Dehydrogenase C-Reactive Protein Total Protein Albumin Triglycerides Lipase Arterial Blood Glucose Arterial Blood Ionized Calcium Urine WBC (Auto) Coronavirus (PCR) SARS-CoV-2 IgG Ab Crossmatch 06/29/20 06/29/20 06/29/20 03:11 04:00 04:00 WBC 18.8 H RBC 2.82 L Hgb 10.1 L Hct 28.5 L MCV 101 H MCH 36 H MCHC 36 H RDW 17.5 H Lymph % (Auto) 10.7 L Lymph # (Auto) [place] # (Auto) 1.0 H Baso # (Auto) 0.3 H Seg Neutrophils % 82.2 H Seg Neuts % (Manual) Lymphocytes % (Manual) Nucleated RBC % Seg Neutrophils # 15.5 H Seg Neutrophils # Man Lymphocytes # (Manual) Monocytes # (Manual) PT INR APTT D-Dimer ABG pH POC ABG pCO2 57.5 H POC ABG pO2 69.1 L ABG pO2 ABG HCO3 ABG O2 Saturation ABG Base Excess ABG Hemoglobin 10.2 L ABG Oxyhemoglobin 92.3 L ABG Sodium 130.7 L ABG Potassium 3.2 L ABG Chloride 93.0 L ABG Glucose 228 H Oxyhemoglobin Sodium 134 L Potassium 3.3 L Chloride 89.5 L Carbon Dioxide 40 H BUN Creatinine 0.2 L Glucose 190 H POC Glucose Lactic Acid Calcium Magnesium Ferritin Total Bilirubin Direct Bilirubin AST < 5 L ALT < 5 L Alkaline Phosphatase Lactate Dehydrogenase C-Reactive Protein Total Protein 5.9 L Albumin 2.2 L Triglycerides Lipase Arterial Blood Glucose 228 H Arterial Blood Ionized Calcium Urine WBC (Auto) Coronavirus (PCR) SARS-CoV-2 IgG Ab Crossmatch 06/29/20 06/29/20 06/29/20 05:00 05:23 09:36 WBC RBC Hgb Hct MCV MCH MCHC RDW Lymph % (Auto) Lymph # (Auto) [place] # (Auto) Baso # (Auto) Seg Neutrophils % Seg Neuts % (Manual) Lymphocytes % (Manual) Nucleated RBC % Seg Neutrophils # Seg Neutrophils # Man Lymphocytes # (Manual) Monocytes # (Manual) PT INR APTT D-Dimer ABG pH POC ABG pCO2 POC ABG pO2 ABG pO2 ABG HCO3 ABG O2 Saturation ABG Base Excess ABG Hemoglobin ABG Oxyhemoglobin ABG Sodium ABG Potassium ABG Chloride ABG Glucose Oxyhemoglobin Sodium Potassium Chloride Carbon Dioxide BUN Creatinine Glucose POC Glucose 165 H Lactic Acid Calcium Magnesium Ferritin Total Bilirubin Direct Bilirubin AST ALT Alkaline Phosphatase Lactate Dehydrogenase C-Reactive Protein Total Protein Albumin Triglycerides 1544 H 1799 H Lipase Arterial Blood Glucose Arterial Blood Ionized Calcium Urine WBC (Auto) Coronavirus (PCR) SARS-CoV-2 IgG Ab Crossmatch 06/29/20 06/29/20 06/29/20 09:36 12:02 18:00 WBC RBC Hgb Hct MCV MCH MCHC RDW Lymph % (Auto) Lymph # (Auto) [place] # (Auto) Baso # (Auto) Seg Neutrophils % Seg Neuts % (Manual) Lymphocytes % (Manual) Nucleated RBC % Seg Neutrophils # Seg Neutrophils # Man Lymphocytes # (Manual) Monocytes # (Manual) PT INR APTT D-Dimer ABG pH POC ABG pCO2 POC ABG pO2 ABG pO2 ABG HCO3 ABG O2 Saturation ABG Base Excess ABG Hemoglobin ABG Oxyhemoglobin ABG Sodium ABG Potassium ABG Chloride ABG Glucose Oxyhemoglobin Sodium Potassium Chloride Carbon Dioxide BUN Creatinine Glucose POC Glucose 197 H 187 H Lactic Acid Calcium Magnesium Ferritin Total Bilirubin Direct Bilirubin AST ALT Alkaline Phosphatase Lactate Dehydrogenase C-Reactive Protein Total Protein Albumin Triglycerides Lipase 86 H Arterial Blood Glucose Arterial Blood Ionized Calcium Urine WBC (Auto) Coronavirus (PCR) SARS-CoV-2 IgG Ab Crossmatch 06/29/20 06/30/20 06/30/20 23:33 03:46 05:50 WBC RBC Hgb Hct MCV MCH MCHC RDW Lymph % (Auto) Lymph # (Auto) [place] # (Auto) Baso # (Auto) Seg Neutrophils % Seg Neuts % (Manual) Lymphocytes % (Manual) Nucleated RBC % Seg Neutrophils # Seg Neutrophils # Man Lymphocytes # (Manual) Monocytes # (Manual) PT INR APTT D-Dimer ABG pH 7.466 H POC ABG pCO2 57.3 H POC ABG pO2 66.1 L ABG pO2 ABG HCO3 ABG O2 Saturation ABG Base Excess ABG Hemoglobin 10.2 L ABG Oxyhemoglobin 92.3 L ABG Sodium 134.4 L ABG Potassium 3.2 L ABG Chloride 94.0 L ABG Glucose 178 H Oxyhemoglobin Sodium Potassium Chloride Carbon Dioxide BUN Creatinine Glucose POC Glucose 170 H 170 H Lactic Acid Calcium Magnesium Ferritin Total Bilirubin Direct Bilirubin AST ALT Alkaline Phosphatase Lactate Dehydrogenase C-Reactive Protein Total Protein Albumin Triglycerides Lipase Arterial Blood Glucose 178 H Arterial Blood Ionized Calcium Urine WBC (Auto) Coronavirus (PCR) SARS-CoV-2 IgG Ab Crossmatch 06/30/20 06/30/20 06/30/20 07:00 07:00 12:04 WBC 15.6 H RBC 2.91 L Hgb 9.8 L Hct 29.7 L MCV 102 H MCH 34 H MCHC RDW 17.8 H Lymph % (Auto) Lymph # (Auto) [place] # (Auto) Baso # (Auto) Seg Neutrophils % Seg Neuts % (Manual) Lymphocytes % (Manual) 5.0 L Nucleated RBC % Seg Neutrophils # Seg Neutrophils # Man 14.8 H Lymphocytes # (Manual) 0.8 L Monocytes # (Manual) PT INR APTT D-Dimer ABG pH POC ABG pCO2 POC ABG pO2 ABG pO2 ABG HCO3 ABG O2 Saturation ABG Base Excess ABG Hemoglobin ABG Oxyhemoglobin ABG Sodium ABG Potassium ABG Chloride ABG Glucose Oxyhemoglobin Sodium Potassium Chloride 93.3 L Carbon Dioxide 43 H* BUN Creatinine 0.3 L Glucose 260 H POC Glucose 245 H Lactic Acid Calcium Magnesium Ferritin Total Bilirubin Direct Bilirubin AST ALT Alkaline Phosphatase Lactate Dehydrogenase C-Reactive Protein Total Protein Albumin 2.8 L Triglycerides 452 H Lipase Arterial Blood Glucose Arterial Blood Ionized Calcium Urine WBC (Auto) Coronavirus (PCR) SARS-CoV-2 IgG Ab Crossmatch Chest x-ray: pending Allied health notes reviewed: nursing
--- NOTE | 2020-06-30 13:51 | XRay Report ---
CHEST - 1 VIEW INDICATION: bilateral pneumonia; chest tube COMPARISON: 06/26/2020 FINDINGS: Support devices: Stable support device positioning. Heart: Stable cardiomediastinal silhouette. Lungs/pleura: Stable diffuse bilateral lung opacities. No pleural effusion or pneumothorax. Additional findings: None. IMPRESSION: Unchanged exam. Signer Name: Bautista Jennings Jr, MD Signed: 06/30/2020 1:47 PM Workstation Name: [id number]
--- NOTE | 2020-06-30 15:28 | Progress Note ---
Assessment and Plan - Acute hypoxemic respiratory failure; Patient intubated and on vent support --Severe COVID-19 bilateral pneumonia Coronavirus protocol: IV steroid therapy, completed remdesivir, isolation precautions, contact precautions, prone positioning while in bed, pulmonary toilet. ID following SARS CoV-2 IgG positive patient is NOT a candidate for COVID convalescent plasma --Severe sepsis/septic shock, due to COVID 19 PNA cont pressors as needed -- Acute kidney injury (SEN) , likely vasomotor nephropathy Resolved, IV fluids, avoid nephrotoxins --Acute on chronic anemia Guaiac test positive GI evaluation PPIs Continue to monitor -- Elevated liver function tests Suspected secondary to alcoholic liver disease. Supportive care, alcohol cessation, patient counseled. --Colonic distention GI evaluation -recommend stool softeners Serial abdominal x-rays Monitor electrolytes and replete --History of alcohol dependence, status post CIWA protocol along with thiamine folic acid and multivitamin --right pneumothorax, s/p right chest tube placed on 06/21/20 -- DVT prophylaxis On therapeutic Lovenox The high probability of a clinically significant, sudden or life threatening deterioration of the [respiratory] system(s) required my full and direct attention, intervention and personal management. The aggregate critical care time was [31] minutes. This time is in addition to time spent performing reported procedures but includes the following: [x] Data Review and interpretation [x] Patient assessment and monitoring of vital signs [x] Documentation [x] Medication orders and management Brief History: 50 YO Male with Obesity, ETOH Dependence presents to ED for evaluation for shortness of breath, generalized weakness, fatigue, malaise, body aches, decreased exercise tolerance over the past 5 days. EMS was notified and upon arrival the patient was found to be in distress with a pulse oximetry of 76% on room air as well as fever to 103 F. In the ER chest x-ray and was found to have bilateral pneumonia. Patient admitted to medical floor and initiated on pneumonia protocol as well as COVID-19 protocol. Patient reports being diagnosed with coronavirus 2 days ago. 05/10- 05/17: follow inflammatory markers, consulted ID/pulmonary. patient on high flow O2 05/18/20; patient feels slightly better still hypoxic, requiring continuous high flow oxygen and BiPAP Respiratory team trying to wean 05/19/20; patient is severely hypoxemic requiring continuous BiPAP today, complains of generalized weakness Trying to wean off high flow oxygen, patient is in isolation 05/20/2020; patient remains on high flow oxygen/BiPAP/100% nonrebreather. Still is hypoxemic Has sinus tachycardia patient in mild distress Wean off high flow oxygen as tolerated, pulmonary critical following 05/21/20; patient is critically ill, on continuous BiPAP remains hypoxemic in mild distress. Patient has severe Covid Pneumonia with persistent hypoxemia and poor prognosis. 05/22/2020: Patient was intubated last night because of persistent hypoxemia. 05/23-06/15: Remains on ventilatory support, unable to wean off from the vent. 06/16/2020. Patient currently on mechanical ventilation with AC mode rate 30, tidal volume 500, FiO2 70% and PEEP of 16. Continue anticoagulation with Lovenox 110 milligrams subcu every 12 hours. Wean sedation of fentanyl/Versed as needed. Currently with IV steroids of Solu-Medrol 40 mg IV every 12 hours. Patient will likely need tracheostomy per pulmonary recommendations. Continue pressors to maintain MAP > 65. 06/17/2020. Patient currently on mechanical ventilation with AC mode rate 30, tidal volume 500, FiO2 65% and PEEP of 16. Continue anticoagulation with Lovenox 110 milligrams subcu every 12 hours. Wean sedation of fentanyl/Versed as needed. Currently with IV steroids of Solu-Medrol 40 mg IV every 12 hours. Patient will likely need tracheostomy per pulmonary recommendations. 06/18/2020. Patient currently on mechanical ventilation with AC mode rate 30, tidal volume 500, FiO2 70% and PEEP of 16. Continue Lovenox for anticoagulation and fentanyl/Versed for sedation. Wean steroids per pulmonary. CIWA protocol initiated for history of EtOH dependence 06/19/2020. Patient currently on mechanical ventilation with AC mode rate 30, tidal volume 500, FiO2 60% and PEEP of 16. Wean FiO2 as tolerated per protocol. Continue Lovenox for anticoagulation and fentanyl/Versed for sedation. Wean steroids per pulmonary. CIWA protocol initiated for history of EtOH dependence 06/20/2020. Patient currently on mechanical ventilation with AC mode rate 30, tidal volume 500, FiO2 60% and PEEP of 16. Wean FiO2 as tolerated, SBT per protocol. Continue Lovenox for anticoagulation and fentanyl/Versed for sedation. Wean steroids per pulmonary. Continue pressors to maintain MAP > 65 mmHg. Patient remains on ETT. Consider tracheostomy placement once oxygenation is better per pulmonary. CIWA protocol initiated for history of EtOH de pendence. 06/21/2020. Patient with a small apical pneumothorax discovered yesterday. General surgery consulted and consider placing chest tube. Follow-up serial chest x-ray patient currently on mechanical ventilation with AC mode rate 30, tidal volume 500, FiO2 60% and PEEP of 16. Wean FiO2 as tolerated, SBT per protocol. Continue Lovenox for anticoagulation and fentanyl/Versed for sedation. Wean steroids per pulmonary. Continue pressors to maintain MAP > 65 mmHg. Patient remains on ETT. Consider tracheostomy placement once oxygenation is better per pulmonary. CIWA protocol initiated for history of EtOH dependence. 06/22. Status post right chest tube placement yesterday. Remains mechanically ventilated on pressors. Examination today shows slightly distended abdomen. KUB ordered. Awaiting stool guaiac. Plan to get a GI evaluation. 06/23. Has colonic distention on the x-ray. Discussed with GI-advised stool softeners for now and close monitoring. No indication for colonic decompression at this time. Guaiac test is positive. No emergent indication for endoscopy at this point as per GI. Continue to monitor hemoglobin. 06/24. Remains intubated. On pressors. GI following for positive guaiac stool and anemia, and colonic distention. 06/25. Repeat abdominal xray ordered. Remains on mechanical ventilation. 06/26. Abdominal xray - resolved colonic distension. Mechanically ventilated. 06/27. Plan for trach and PEG. 06/28: Awaiting trach and Peg. Some Bm REPORTED, will continue to monitor 06/29: Resume care, patient remains on ventilator support, waiting on trach and PEG placement. BM reported by the RN, continue to monitor. 06/30: Unable to wean off from vent, patient will need trach and PEG. Continue supportive care, tolerating tube feed. Monitor CBC and BMP Subjective Date of service: 06/30/20 Principal diagnosis: Ac hypoxemic resp failure; COVID-19; Severe Sepsis; Shaggy PNA; Alcohol Abuse Interval history: Patient seen and examined Patient remains on mechanical ventilation Chest tube in place Tolerating tube feeding Objective - Exam Narrative Exam: General appearance: Present: no distress, obese, intubated - EENT Eyes: Present: PERRL ENT: Et tube in place - Neck Neck: Present: supple, - Respiratory Respiratory effort: on mechanical ventilation Respiratory: bilateral: diminished, rhonchi, CT tube in place - Cardiovascular Heart Sounds: Present: S1 & S2. Absent: rub, click - Extremities Extremities: pulses symmetrical, No edema Peripheral Pulses: within normal limits - Abdominal General gastrointestinal: Present: soft, non-tender, mild distended, normal bowel sounds Male genitourinary: Present: normal - Integumentary Integumentary: Present: clear, warm, dry - Musculoskeletal Musculoskeletal: generalized weakness - Psychiatric Psychiatric: Unable to assess - Neurologic Neurologic: Intubated - Constitutional Vitals: Vital Signs - 12hr 06/30/20 06/30/20 06/30/20 03:30 03:45 04:00 Temperature 98.1 F Pulse Rate 86 85 84 Pulse Rate [ 86 From Monitor] Respiratory 30 H 30 H 30 H Rate Respiratory Rate [ Generalized] Blood Pressure 111/64 117/68 108/64 O2 Sat by Pulse 94 96 94 Oximetry 06/30/20 06/30/20 06/30/20 04:08 04:15 04:30 Temperature Pulse Rate 85 86 88 Pulse Rate [ From Monitor] Respiratory 30 H 30 H Rate Respiratory Rate [ Generalized] Blood Pressure 108/64 108/62 114/66 O2 Sat by Pulse 94 93 94 Oximetry 06/30/20 06/30/20 06/30/20 04:45 05:00 05:15 Temperature Pulse Rate 87 87 86 Pulse Rate [ From Monitor] Respiratory 30 H 30 H 30 H Rate Respiratory Rate [ Generalized] Blood Pressure 121/70 117/69 118/70 O2 Sat by Pulse 92 Oximetry 06/30/20 06/30/20 06/30/20 05:30 05:45 06:00 Temperature Pulse Rate 87 88 84 Pulse Rate [ From Monitor] Respiratory 30 H 30 H 30 H Rate Respiratory Rate [ Generalized] Blood Pressure 115/64 110/68 103/73 O2 Sat by Pulse Oximetry 06/30/20 06/30/20 06/30/20 06:15 06:31 06:45 Temperature Pulse Rate 85 113 H 123 H Pulse Rate [ From Monitor] Respiratory 30 H 29 H 35 H Rate Respiratory Rate [ Generalized] Blood Pressure 105/69 165/94 137/87 O2 Sat by Pulse 94 88 100 Oximetry 06/30/20 06/30/20 06/30/20 07:00 07:05 07:15 Temperature Pulse Rate 125 H 86 122 H Pulse Rate [ From Monitor] Respiratory 25 H 38 H Rate Respiratory Rate [ Generalized] Blood Pressure 148/91 142/102 109/91 O2 Sat by Pulse 98 92 99 Oximetry 06/30/20 06/30/20 06/30/20 07:30 07:45 08:00 Temperature 99.7 F H Pulse Rate 118 H 110 H 131 H Pulse Rate [ 86 From Monitor] Respiratory 26 H 21 19 Rate Respiratory Rate [ Generalized] Blood Pressure 113/82 113/73 105/74 O2 Sat by Pulse 100 99 100 Oximetry 06/30/20 06/30/20 06/30/20 08:15 08:30 08:45 Temperature Pulse Rate 126 H 140 H 127 H Pulse Rate [ From Monitor] Respiratory 21 32 H 30 H Rate Respiratory Rate [ Generalized] Blood Pressure 113/82 143/99 152/101 O2 Sat by Pulse 100 98 99 Oximetry 06/30/20 06/30/20 06/30/20 09:00 09:15 09:30 Temperature Pulse Rate 127 H 131 H 134 H Pulse Rate [ From Monitor] Respiratory 21 22 26 H Rate Respiratory Rate [ Generalized] Blood Pressure 147/95 134/80 118/73 O2 Sat by Pulse 100 88 91 Oximetry 06/30/20 06/30/20 06/30/20 09:45 10:00 10:15 Temperature Pulse Rate 131 H 136 H 129 H Pulse Rate [ From Monitor] Respiratory 22 29 H 32 H Rate Respiratory 30 H Rate [ Generalized] Blood Pressure 110/68 124/67 120/60 O2 Sat by Pulse 89 89 91 Oximetry 06/30/20 06/30/20 06/30/20 10:30 10:45 11:00 Temperature Pulse Rate 136 H 148 H 135 H Pulse Rate [ From Monitor] Respiratory 40 H 29 H 39 H Rate Respiratory Rate [ Generalized] Blood Pressure 118/81 124/88 132/81 O2 Sat by Pulse 93 91 90 Oximetry 06/30/20 06/30/20 06/30/20 11:01 11:15 11:31 Temperature Pulse Rate 129 H 124 H Pulse Rate [ From Monitor] Respiratory 34 H 13 Rate Respiratory Rate [ Generalized] Blood Pressure 132/81 110/68 95/68 O2 Sat by Pulse 96 92 93 Oximetry 06/30/20 06/30/20 06/30/20 11:45 12:00 12:15 Temperature Pulse Rate 112 H 88 88 Pulse Rate [ 86 From Monitor] Respiratory 30 H 30 H 31 H Rate Respiratory Rate [ Generalized] Blood Pressure 95/49 94/51 87/63 O2 Sat by Pulse 95 100 Oximetry - Labs CBC & Chem 7: 07/02/20 16:08 07/02/20 16:08 Labs: Abnormal lab results 06/29/20 06/29/20 06/30/20 Range/Units 18:00 23:33 03:46 WBC (4.5-11.0) K/mm3 RBC (3.65-5.03) M/mm3 Hgb (11.8-15.2) gm/dl Hct (35.5-45.6) % MCV (84-94) fl MCH (28-32) pg RDW (13.2-15.2) % Lymphocytes % (Manual) (13.4-35.0) % Seg Neutrophils # Man (1.8-7.7) K/mm3 Lymphocytes # (Manual) (1.2-5.4) K/mm3 ABG pH 7.466 H (7.320-7.450) POC ABG pCO2 57.3 H (32.0-48.0) mmHg POC ABG pO2 66.1 L (83-108) mmHg ABG Hemoglobin 10.2 L (12.0-17.5) ABG Oxyhemoglobin 92.3 L (94-98) ABG Sodium 134.4 L (136.0-145.0) mmol/L ABG Potassium 3.2 L (3.40-4.50) mmol/L ABG Chloride 94.0 L (98-107) mmol/L ABG Glucose 178 H (65-95) mg/dL Chloride (98-107) mmol/L Carbon Dioxide (22-30) mmol/L Creatinine (0.8-1.3) mg/dL Glucose (75-100) mg/dL POC Glucose 187 H 170 H (70-105) mg/dL Albumin (3.9-5) g/dL Triglycerides (2-149) mg/dL Arterial Blood Glucose 178 H (65-95) mg/dL 06/30/20 06/30/20 06/30/20 Range/Units 05:50 07:00 07:00 WBC 15.6 H (4.5-11.0) K/mm3 RBC 2.91 L (3.65-5.03) M/mm3 Hgb 9.8 L (11.8-15.2) gm/dl Hct 29.7 L (35.5-45.6) % MCV 102 H (84-94) fl MCH 34 H (28-32) pg RDW 17.8 H (13.2-15.2) % Lymphocytes % (Manual) 5.0 L (13.4-35.0) % Seg Neutrophils # Man 14.8 H (1.8-7.7) K/mm3 Lymphocytes # (Manual) 0.8 L (1.2-5.4) K/mm3 ABG pH (7.320-7.450) POC ABG pCO2 (32.0-48.0) mmHg POC ABG pO2 (83-108) mmHg ABG Hemoglobin (12.0-17.5) ABG Oxyhemoglobin (94-98) ABG Sodium (136.0-145.0) mmol/L ABG Potassium (3.40-4.50) mmol/L ABG Chloride (98-107) mmol/L ABG Glucose (65-95) mg/dL Chloride 93.3 L (98-107) mmol/L Carbon Dioxide 43 H* (22-30) mmol/L Creatinine 0.3 L (0.8-1.3) mg/dL Glucose 260 H (75-100) mg/dL POC Glucose 170 H (70-105) mg/dL Albumin 2.8 L (3.9-5) g/dL Triglycerides 452 H (2-149) mg/dL Arterial Blood Glucose (65-95) mg/dL 06/30/20 Range/Units 12:04 WBC (4.5-11.0) K/mm3 RBC (3.65-5.03) M/mm3 Hgb (11.8-15.2) gm/dl Hct (35.5-45.6) % MCV (84-94) fl MCH (28-32) pg RDW (13.2-15.2) % Lymphocytes % (Manual) (13.4-35.0) % Seg Neutrophils # Man (1.8-7.7) K/mm3 Lymphocytes # (Manual) (1.2-5.4) K/mm3 ABG pH (7.320-7.450) POC ABG pCO2 (32.0-48.0) mmHg POC ABG pO2 (83-108) mmHg ABG Hemoglobin (12.0-17.5) ABG Oxyhemoglobin (94-98) ABG Sodium (136.0-145.0) mmol/L ABG Potassium (3.40-4.50) mmol/L ABG Chloride (98-107) mmol/L ABG Glucose (65-95) mg/dL Chloride (98-107) mmol/L Carbon Dioxide (22-30) mmol/L Creatinine (0.8-1.3) mg/dL Glucose (75-100) mg/dL POC Glucose 245 H (70-105) mg/dL Albumin (3.9-5) g/dL Triglycerides (2-149) mg/dL Arterial Blood Glucose (65-95) mg/dL
[2020-06-30] MEDS: MIDODRINE 5 MG TAB PO SCH (16:18)
[2020-06-30] MEDS: INSULIN GLARGINE 100 UNITS/ML SUB-Q SCH (22:33)
[2020-06-30] MEDS: HEPARIN/ 0.45% NACL DRIP 25,000 UNIT/500 ML BAG IV SCH (23:34)
[2020-07-01] MEDS: INSULIN LISPRO 100 UNIT/ML VIAL 3 mL SUB-Q SCH ×5 (00:55→23:27)
[2020-07-01] MEDS: fentaNYL DRIP Premix 2,000 MCG/100 ML BAG IV SCH ×5 (01:17→19:18)
[2020-07-01] MEDS: NORepinephrine/NS 4 MG-250 ML 4 MG/250 ML BAG IV SCH (04:25)
[2020-07-01] MEDS: ALPRAZolam 0.25 MG TAB PO PRN (05:17)
[2020-07-01 06:49] LABS: Hematocrit 21.3 % (35.5-45.6); Hemoglobin 7.1 gm/dl (11.8-15.2); Mean Corpuscular HGB Conc 33 % (32-34); Mean Corpuscular Volume 91 fl (84-94); Platelet Count 237 K/mm3 (140-440); Red Blood Count 2.33 M/mm3 (3.65-5.03); Red Cell Distribution Width 15.2 % (13.2-15.2)
[2020-07-01 07:57] LABS: Band Neutrophils # (Manual) 0.4 K/mm3; Total Cells Counted 100
[2020-07-01 07:58] LABS: Anisocytosis Few; Helmet Cells Few; Hypochromasia 1+; Schistocytes Rare; Spherocytes Rare
[2020-07-01 07:59] LABS: Platelet Estimate Consistent w Auto; Target Cells Few
[2020-07-01] MEDS: PHENobarbital 20 MG/5 ML ORAL LIQD FEEDTUBE SCH ×3 (08:19→21:37)
[2020-07-01] MEDS: MIDODRINE 5 MG TAB PO SCH ×3 (08:19→15:36)
[2020-07-01] MEDS: QUEtiapine 100 MG TAB PO SCH ×3 (08:19→21:37)
[2020-07-01] MEDS: methylPREDNISolone Sod Succinate 40 MG/1 ML INJ IV SCH ×2 (08:19→17:10)
--- NOTE | 2020-07-01 08:22 | Progress Note ---
Assessment and Plan Acute hypoxemic respiratory failure due to COVID-19 Severe COVID infection Severe Sepsis Bilateral pneumonia Acute kidney injury (SEN) with acute tubular necrosis (ATN)-improving h/o Alcohol dependence Elevated liver function tests probably secondary COVID Get CT head without contrast r/o intracranial process for ongoing agitation Consult surgery for trach/PEG placement- ventilatory requirements are down Monitro QTc while on high doses of Seroquel Continue with chest tube to suction, will keep chest tube in while on MVS and high PEEP. 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 -continue rectal suppositories + senna. Continue to wean supplemental oxygen for O2 sats>90% Continue lung protective strategies Wean vasopressor support as tolerated to keep MAP>65 CXR as clinically indicated - VAP bundle addressed, aspiration precautions HOB >40 - Continue lung protective strategies, permissive hypercapnic acceptable. - continue bronchodilators with pulmonary hygiene per RT - wean per pulmonary driven protocols otherwise - accuchecks with glycemic control per SSI (While critically ill target blood glucose of 140-180 mg/dL; avoid hypoglycemia) - continue enteral nutritional support at goal rate as tolerated - Prone positioning as tolerated and indicated - Monitor liver function test , avoid hepatotoxic agents - Avoid nephrotoxins, renally dose all medications, conservative fluid management - continue to avoid benzodiazepines, reduce the possibility of delirium - prn analgesia per CPOT score - Maintenance of sleep-wake cycle, avoid delirium - continue to avoid benzodiazepines, reduce the possibility of delirium - aspiration precautions -Stress ulcer prophylaxis - PT/OT/ROM exercises - continue mobility protocols for pressure ulcer prevention -CXR, ABG as clinically indicated -CBC, BMP as clinically indicated -Supportive transfusions to keep HgB >7g/dL - Monitor hemodynamics closely - continue other care per attending / other consultants COVID SPECIFIC INTERVENTIONS - SARS CoV-2 IgG positive patient is NOT a candidate for COVID convalescent plasma -Completed remdesivir -Steroids -Monitor inflammatory markers per facility protocol- ferritin, Ddimer, CRP, LDH -Continue anticoagulation per System Protocol based on d-dimer -Continue contact and airborne isolation .... Re-evaluate in am & prn CONDITION: CRITICAL PROGNOSIS: GUARDED CODE STATUS: FULL CODE The high probability of a clinically significant, sudden or life-threatening de terioration of the [respiratory, cardiovascular, hematologic & neurologic] system(s) required my full and direct attention, intervention and personal management. The aggregate critical care time was [34] minutes without overlap. Time includes spent on; [x] Data Review and interpretation [x] Patient assessment and monitoring of vital signs [x] Documentation [x] Medication orders and management Subjective Date of service: 07/01/20 Principal diagnosis: Ac hypoxemic resp failure; COVID-19; Severe Sepsis; Shaggy PNA; Alcohol Abuse Interval history: Patient is seen today for: Acute hypoxemic respiratory failure due to COVID-19; Severe Sepsis; Bilateral pneumonia; Alcohol dependence; Elevated liver function tests Seen and examined at bedside; 24hour events reviewed; nursing and respiratory care staff consulted; no adverse overnight events reported to me; resting in bed; remains on MVS , FiO2 at 50% PEEP +8. No reported fevers, no vomiting, some residual abdominal distension Better oxygenation and synchrony with sedation. Continues to intermittently req uire vasopressor support for sedation induced hypotension Midodrine was added to therapy yesterday so as to wean Norepinephrine Stop Propofol for elevated triglycerides. On Seroquel, pheonobarb added On going agitation Remains on sedation- Midazolam and Fentanyl. Objective Vital Signs - 12hr 06/30/20 06/30/20 06/30/20 20:31 20:36 20:45 Temperature Pulse Rate 139 H 96 H 145 H Pulse Rate [ From Monitor] Respiratory 33 H 30 H Rate Respiratory Rate [ Generalized] Blood Pressure 144/88 144/88 146/86 O2 Sat by Pulse 96 97 91 Oximetry 06/30/20 06/30/20 06/30/20 21:00 21:15 21:30 Temperature Pulse Rate 135 H 121 H 130 H Pulse Rate [ From Monitor] Respiratory 27 H 21 32 H Rate Respiratory Rate [ Generalized] Blood Pressure 127/71 112/69 153/83 O2 Sat by Pulse 91 93 96 Oximetry 06/30/20 06/30/20 06/30/20 21:45 22:00 22:15 Temperature Pulse Rate 116 H 117 H 118 H Pulse Rate [ From Monitor] Respiratory 14 15 20 Rate Respiratory 30 H Rate [ Generalized] Blood Pressure 131/81 125/87 129/86 O2 Sat by Pulse 95 97 97 Oximetry 06/30/20 06/30/20 06/30/20 22:30 22:45 23:00 Temperature Pulse Rate 117 H 105 H 96 H Pulse Rate [ From Monitor] Respiratory 14 30 H 30 H Rate Respiratory Rate [ Generalized] Blood Pressure 112/74 109/71 102/65 O2 Sat by Pulse 97 100 99 Oximetry 06/30/20 06/30/20 06/30/20 23:15 23:30 23:43 Temperature Pulse Rate 103 H 101 H 93 H Pulse Rate [ From Monitor] Respiratory 29 H 30 H 30 H Rate Respiratory Rate [ Generalized] Blood Pressure 101/67 111/71 111/71 O2 Sat by Pulse 99 97 99 Oximetry 06/30/20 07/01/20 07/01/20 23:45 00:00 00:15 Temperature 98.5 F Pulse Rate 92 H 88 89 Pulse Rate [ 89 From Monitor] Respiratory 30 H 30 H 30 H Rate Respiratory Rate [ Generalized] Blood Pressure 104/64 101/61 105/61 O2 Sat by Pulse 98 98 97 Oximetry 07/01/20 07/01/20 07/01/20 00:30 00:45 01:00 Temperature Pulse Rate 87 87 87 Pulse Rate [ From Monitor] Respiratory 30 H 30 H 30 H Rate Respiratory Rate [ Generalized] Blood Pressure 110/62 110/66 109/65 O2 Sat by Pulse 98 98 Oximetry 07/01/20 07/01/20 07/01/20 01:11 01:15 01:30 Temperature Pulse Rate 124 H 101 H 106 H Pulse Rate [ From Monitor] Respiratory 22 30 H Rate Respiratory Rate [ Generalized] Blood Pressure 116/82 109/65 109/66 O2 Sat by Pulse 99 100 88 Oximetry 07/01/20 07/01/20 07/01/20 01:45 02:00 02:15 Temperature Pulse Rate 99 H 115 H 109 H Pulse Rate [ From Monitor] Respiratory 30 H 21 23 Rate Respiratory Rate [ Generalized] Blood Pressure 119/74 137/87 122/83 O2 Sat by Pulse 96 91 96 Oximetry 07/01/20 07/01/20 07/01/20 02:30 02:45 03:01 Temperature Pulse Rate 105 H 123 H Pulse Rate [ From Monitor] Respiratory 30 H 24 Rate Respiratory Rate [ Generalized] Blood Pressure 129/84 118/75 138/94 O2 Sat by Pulse 99 97 98 Oximetry 07/01/20 07/01/20 07/01/20 03:15 03:30 03:45 Temperature Pulse Rate 119 H 125 H 119 H Pulse Rate [ From Monitor] Respiratory 18 20 19 Rate Respiratory Rate [ Generalized] Blood Pressure 138/94 144/102 145/89 O2 Sat by Pulse 100 98 98 Oximetry 07/01/20 07/01/20 07/01/20 04:00 04:15 04:30 Temperature 98.2 F Pulse Rate 125 H 120 H 120 H Pulse Rate [ From Monitor] Respiratory 20 23 14 Rate Respiratory Rate [ Generalized] Blood Pressure 155/92 144/81 131/77 O2 Sat by Pulse 98 100 Oximetry 07/01/20 07/01/20 07/01/20 04:45 05:01 05:04 Temperature Pulse Rate 112 H 137 H 133 H Pulse Rate [ From Monitor] Respiratory 23 26 H Rate Respiratory Rate [ Generalized] Blood Pressure 131/77 180/67 O2 Sat by Pulse 100 97 96 Oximetry 07/01/20 05:15 Temperature Pulse Rate 141 H Pulse Rate [ From Monitor] Respiratory 26 H Rate Respiratory Rate [ Generalized] Blood Pressure 146/89 O2 Sat by Pulse 97 Oximetry Constitutional: appears uncomfortable, other (middle aged obese male with mildly increased respiratory effort at rest on MVS) Eyes: non-icteric ENT: oropharynx moist, other (ETT 24 cm CHILO) Neck: supple, no JVD Effort: mildly labored Ascultation: Bilateral: diminished breath sounds, rhonchi (scant), other (right chest tube) Percussion: Bilateral: not dull Cardiovascular: regular rate and rhythm, other (No R/M) Gastrointestinal: normoactive bowel sounds, soft, non-tender, other (distended ) Integumentary: normal Extremities: no cyanosis, no edema, pulses normal, no ischemia or petechiae Neurologic: pupils equal and round, other (unable top assess re: AMS, agitation) Psychiatric: other (sedated) CBC and BMP: 07/05/20 05:18 07/05/20 05:18 ABG, PT/INR, D-dimer: ABG ABG pH 7.440 (7.320-7.450) 07/01/20 05:02 POC ABG pCO2 58.1 mmHg (32.0-48.0) H 07/01/20 05:02 ABG pCO2 69.8 mm Hg 06/22/20 03:50 POC ABG pO2 87.9 mmHg (83-108) 07/01/20 05:02 ABG pO2 89.6 mm Hg (80.0-90.0) 06/22/20 03:50 POC ABG HCO3 38.6 07/01/20 05:02 ABG O2 Saturation 97.1 % (95.0-99.0) 06/22/20 03:50 PT/INR, D-dimer PT 11.8 Sec. (12.2-14.9) L 06/22/20 14:29 INR 0.88 (0.87-1.13) 06/22/20 14:29 D-Dimer 1887.82 ng/mlDDU (0-234) H 05/20/20 08:16 Abnormal lab findings: Abnormal Labs 05/09/20 05/09/20 05/09/20 12:59 12:59 12:59 WBC 11.8 H RBC Hgb Hct MCV 96 H MCH 34 H MCHC 35 H RDW Lymph % (Auto) 6.9 L Lymph # (Auto) 0.8 L [place] # (Auto) Baso # (Auto) Seg Neutrophils % 87.5 H Seg Neuts % (Manual) Lymphocytes % (Manual) Nucleated RBC % Seg Neutrophils # 10.3 H Seg Neutrophils # Man Lymphocytes # (Manual) Monocytes # (Manual) Eosinophils # (Manual) PT INR APTT D-Dimer Heparin Anti-Xa Level ABG pH POC ABG pCO2 POC ABG pO2 ABG pO2 ABG HCO3 ABG O2 Saturation ABG Base Excess ABG Hemoglobin ABG Oxyhemoglobin ABG Sodium ABG Potassium ABG Chloride ABG Glucose Oxyhemoglobin Sodium 130 L Potassium 3.5 L Chloride 86.4 L Carbon Dioxide BUN 33 H Creatinine 2.3 H Glucose 156 H POC Glucose Lactic Acid Calcium Magnesium Ferritin Total Bilirubin 3.40 H Direct Bilirubin 1.7 H AST 385 H ALT 134 H Alkaline Phosphatase Lactate Dehydrogenase C-Reactive Protein Total Protein Albumin 3.0 L Triglycerides Lipase Arterial Blood Glucose Arterial Blood Ionized Calcium Urine WBC (Auto) Coronavirus (PCR) SARS-CoV-2 IgG Ab Crossmatch 05/09/20 05/09/20 05/09/20 12:59 12:59 12:59 WBC RBC Hgb Hct MCV MCH MCHC RDW Lymph % (Auto) Lymph # (Auto) [place] # (Auto) Baso # (Auto) Seg Neutrophils % Seg Neuts % (Manual) Lymphocytes % (Manual) Nucleated RBC % Seg Neutrophils # Seg Neutrophils # Man Lymphocytes # (Manual) Monocytes # (Manual) Eosinophils # (Manual) PT INR APTT D-Dimer 3242.51 H Heparin Anti-Xa Level ABG pH POC ABG pCO2 POC ABG pO2 ABG pO2 ABG HCO3 ABG O2 Saturation ABG Base Excess ABG Hemoglobin ABG Oxyhemoglobin ABG Sodium ABG Potassium ABG Chloride ABG Glucose Oxyhemoglobin Sodium Potassium Chloride Carbon Dioxide BUN Creatinine Glucose 158 H POC Glucose Lactic Acid 3.50 H* Calcium Magnesium Ferritin Total Bilirubin Direct Bilirubin AST ALT Alkaline Phosphatase Lactate Dehydrogenase 2166 H C-Reactive Protein 39.00 H Total Protein Albumin Triglycerides Lipase Arterial Blood Glucose Arterial Blood Ionized Calcium Urine WBC (Auto) Coronavirus (PCR) SARS-CoV-2 IgG Ab Crossmatch 05/09/20 05/09/20 05/09/20 12:59 14:20 14:20 WBC RBC Hgb Hct MCV MCH MCHC RDW Lymph % (Auto) Lymph # (Auto) [place] # (Auto) Baso # (Auto) Seg Neutrophils % Seg Neuts % (Manual) Lymphocytes % (Manual) Nucleated RBC % Seg Neutrophils # Seg Neutrophils # Man Lymphocytes # (Manual) Monocytes # (Manual) Eosinophils # (Manual) PT INR APTT D-Dimer 2861.78 H Heparin Anti-Xa Level ABG pH POC ABG pCO2 POC ABG pO2 ABG pO2 ABG HCO3 ABG O2 Saturation ABG Base Excess ABG Hemoglobin ABG Oxyhemoglobin ABG Sodium ABG Potassium ABG Chloride ABG Glucose Oxyhemoglobin Sodium Potassium Chloride Carbon Dioxide BUN Creatinine Glucose POC Glucose Lactic Acid 2.20 H* Calcium Magnesium Ferritin 48282.0 H Total Bilirubin Direct Bilirubin AST ALT Alkaline Phosphatase Lactate Dehydrogenase C-Reactive Protein Total Protein Albumin Triglycerides Lipase Arterial Blood Glucose Arterial Blood Ionized Calcium Urine WBC (Auto) Coronavirus (PCR) SARS-CoV-2 IgG Ab Crossmatch 05/09/20 05/09/20 05/09/20 14:20 14:20 15:56 WBC RBC Hgb Hct MCV MCH MCHC RDW Lymph % (Auto) Lymph # (Auto) [place] # (Auto) Baso # (Auto) Seg Neutrophils % Seg Neuts % (Manual) Lymphocytes % (Manual) Nucleated RBC % Seg Neutrophils # Seg Neutrophils # Man Lymphocytes # (Manual) Monocytes # (Manual) Eosinophils # (Manual) PT INR APTT D-Dimer Heparin Anti-Xa Level ABG pH POC ABG pCO2 POC ABG pO2 57.3 L ABG pO2 ABG HCO3 ABG O2 Saturation ABG Base Excess ABG Hemoglobin ABG Oxyhemoglobin 86.3 L ABG Sodium 129.9 L ABG Potassium ABG Chloride ABG Glucose 146 H Oxyhemoglobin Sodium Potassium Chloride Carbon Dioxide BUN Creatinine Glucose 143 H POC Glucose Lactic Acid Calcium Magnesium Ferritin 26896.0 H Total Bilirubin Direct Bilirubin AST ALT Alkaline Phosphatase Lactate Dehydrogenase 1953 H C-Reactive Protein 33.50 H Total Protein Albumin Triglycerides Lipase Arterial Blood Glucose 146 H Arterial Blood Ionized Calcium 3.9 L Urine WBC (Auto) Coronavirus (PCR) SARS-CoV-2 IgG Ab Crossmatch 05/10/20 05/10/20 05/10/20 10:32 10:32 18:50 WBC 15.4 H RBC Hgb Hct MCV 97 H MCH 33 H MCHC RDW 13.1 L Lymph % (Auto) Lymph # (Auto) [place] # (Auto) Baso # (Auto) Seg Neutrophils % Seg Neuts % (Manual) 89.0 H Lymphocytes % (Manual) 8.0 L Nucleated RBC % Seg Neutrophils # Seg Neutrophils # Man 13.7 H Lymphocytes # (Manual) Monocytes # (Manual) Eosinophils # (Manual) PT INR APTT D-Dimer Heparin Anti-Xa Level ABG pH POC ABG pCO2 POC ABG pO2 ABG pO2 ABG HCO3 ABG O2 Saturation ABG Base Excess ABG Hemoglobin ABG Oxyhemoglobin ABG Sodium ABG Potassium ABG Chloride ABG Glucose Oxyhemoglobin Sodium 136 L Potassium Chloride 97.4 L Carbon Dioxide BUN 37 H Creatinine 1.7 H Glucose 209 H POC Glucose Lactic Acid Calcium Magnesium Ferritin > 2000.0 H Total Bilirubin Direct Bilirubin AST ALT Alkaline Phosphatase Lactate Dehydrogenase C-Reactive Protein Total Protein Albumin Triglycerides Lipase Arterial Blood Glucose Arterial Blood Ionized Calcium Urine WBC (Auto) Coronavirus (PCR) SARS-CoV-2 IgG Ab Crossmatch 05/10/20 05/10/20 05/10/20 18:50 19:00 Unknown WBC RBC Hgb Hct MCV MCH MCHC RDW Lymph % (Auto) Lymph # (Auto) [place] # (Auto) Baso # (Auto) Seg Neutrophils % Seg Neuts % (Manual) Lymphocytes % (Manual) Nucleated RBC % Seg Neutrophils # Seg Neutrophils # Man Lymphocytes # (Manual) Monocytes # (Manual) Eosinophils # (Manual) PT INR APTT D-Dimer > 97508 H Heparin Anti-Xa Level ABG pH POC ABG pCO2 POC ABG pO2 ABG pO2 ABG HCO3 ABG O2 Saturation ABG Base Excess ABG Hemoglobin ABG Oxyhemoglobin ABG Sodium ABG Potassium ABG Chloride ABG Glucose Oxyhemoglobin Sodium Potassium Chloride Carbon Dioxide BUN Creatinine Glucose POC Glucose Lactic Acid Calcium Magnesium Ferritin Total Bilirubin Direct Bilirubin AST ALT Alkaline Phosphatase Lactate Dehydrogenase 1879 H C-Reactive Protein 24.80 H Total Protein Albumin Triglycerides Lipase Arterial Blood Glucose Arterial Blood Ionized Calcium Urine WBC (Auto) 11.0 H Coronavirus (PCR) SARS-CoV-2 IgG Ab Crossmatch 05/10/20 05/11/20 05/11/20 Unknown 07:30 07:30 WBC RBC Hgb Hct MCV MCH MCHC RDW Lymph % (Auto) Lymph # (Auto) [place] # (Auto) Baso # (Auto) Seg Neutrophils % Seg Neuts % (Manual) Lymphocytes % (Manual) Nucleated RBC % Seg Neutrophils # Seg Neutrophils # Man Lymphocytes # (Manual) Monocytes # (Manual) Eosinophils # (Manual) PT INR APTT D-Dimer > 2000 H Heparin Anti-Xa Level ABG pH POC ABG pCO2 POC ABG pO2 ABG pO2 ABG HCO3 ABG O2 Saturation ABG Base Excess ABG Hemoglobin ABG Oxyhemoglobin ABG Sodium ABG Potassium ABG Chloride ABG Glucose Oxyhemoglobin Sodium Potassium Chloride 96.3 L Carbon Dioxide BUN 36 H Creatinine Glucose 161 H POC Glucose Lactic Acid Calcium 8.3 L Magnesium Ferritin Total Bilirubin 1.50 H Direct Bilirubin 0.6 H AST 178 H ALT 111 H Alkaline Phosphatase Lactate Dehydrogenase C-Reactive Protein Total Protein Albumin 3.0 L Triglycerides Lipase Arterial Blood Glucose Arterial Blood Ionized Calcium Urine WBC (Auto) Coronavirus (PCR) Positive A SARS-CoV-2 IgG Ab Crossmatch 05/11/20 05/11/20 05/11/20 07:30 07:30 07:30 WBC RBC Hgb Hct MCV MCH MCHC RDW Lymph % (Auto) Lymph # (Auto) [place] # (Auto) Baso # (Auto) Seg Neutrophils % Seg Neuts % (Manual) Lymphocytes % (Manual) Nucleated RBC % Seg Neutrophils # Seg Neutrophils # Man Lymphocytes # (Manual) Monocytes # (Manual) Eosinophils # (Manual) PT INR APTT D-Dimer Heparin Anti-Xa Level ABG pH POC ABG pCO2 POC ABG pO2 ABG pO2 ABG HCO3 ABG O2 Saturation ABG Base Excess ABG Hemoglobin ABG Oxyhemoglobin ABG Sodium ABG Potassium ABG Chloride ABG Glucose Oxyhemoglobin Sodium Potassium Chloride Carbon Dioxide BUN Creatinine Glucose POC Glucose Lactic Acid Calcium Magnesium Ferritin 95259.0 H Total Bilirubin Direct Bilirubin AST ALT Alkaline Phosphatase Lactate Dehydrogenase 1523 H C-Reactive Protein 12.90 H Total Protein Albumin Triglycerides Lipase Arterial Blood Glucose Arterial Blood Ionized Calcium Urine WBC (Auto) Coronavirus (PCR) SARS-CoV-2 IgG Ab Reactive A Crossmatch 05/13/20 05/13/20 05/15/20 05:20 05:20 08:15 WBC RBC Hgb Hct MCV MCH MCHC RDW Lymph % (Auto) Lymph # (Auto) [place] # (Auto) Baso # (Auto) Seg Neutrophils % Seg Neuts % (Manual) Lymphocytes % (Manual) Nucleated RBC % Seg Neutrophils # Seg Neutrophils # Man Lymphocytes # (Manual) Monocytes # (Manual) Eosinophils # (Manual) PT INR APTT D-Dimer > 94990 H 5318.28 H Heparin Anti-Xa Level ABG pH POC ABG pCO2 POC ABG pO2 ABG pO2 ABG HCO3 ABG O2 Saturation ABG Base Excess ABG Hemoglobin ABG Oxyhemoglobin ABG Sodium ABG Potassium ABG Chloride ABG Glucose Oxyhemoglobin Sodium Potassium Chloride Carbon Dioxide 32 H BUN 30 H Creatinine Glucose 156 H POC Glucose Lactic Acid Calcium Magnesium 2.60 H Ferritin Total Bilirubin 1.40 H Direct Bilirubin AST 121 H ALT 119 H Alkaline Phosphatase Lactate Dehydrogenase 957 H C-Reactive Protein 4.00 H Total Protein Albumin 3.0 L Triglycerides Lipase Arterial Blood Glucose Arterial Blood Ionized Calcium Urine WBC (Auto) Coronavirus (PCR) SARS-CoV-2 IgG Ab Crossmatch 05/15/20 05/15/20 05/15/20 08:15 08:15 08:15 WBC 12.4 H RBC Hgb Hct MCV 98 H MCH 33 H MCHC RDW Lymph % (Auto) 9.7 L Lymph # (Auto) [place] # (Auto) Baso # (Auto) Seg Neutrophils % 86.8 H Seg Neuts % (Manual) Lymphocytes % (Manual) Nucleated RBC % Seg Neutrophils # 10.8 H Seg Neutrophils # Man Lymphocytes # (Manual) Monocytes # (Manual) Eosinophils # (Manual) PT INR APTT D-Dimer Heparin Anti-Xa Level ABG pH POC ABG pCO2 POC ABG pO2 ABG pO2 ABG HCO3 ABG O2 Saturation ABG Base Excess ABG Hemoglobin ABG Oxyhemoglobin ABG Sodium ABG Potassium ABG Chloride ABG Glucose Oxyhemoglobin Sodium Potassium Chloride 94.8 L Carbon Dioxide 32 H BUN 22 H Creatinine Glucose 115 H POC Glucose Lactic Acid Calcium 8.3 L Magnesium Ferritin 2494.0 H Total Bilirubin Direct Bilirubin AST 73 H ALT 121 H Alkaline Phosphatase Lactate Dehydrogenase 835 H C-Reactive Protein 3.40 H Total Protein 6.1 L Albumin 3.0 L Triglycerides Lipase Arterial Blood Glucose Arterial Blood Ionized Calcium Urine WBC (Auto) Coronavirus (PCR) SARS-CoV-2 IgG Ab Crossmatch 05/17/20 05/17/20 05/17/20 05:50 05:50 05:50 WBC RBC Hgb Hct MCV MCH MCHC RDW Lymph % (Auto) Lymph # (Auto) [place] # (Auto) Baso # (Auto) Seg Neutrophils % Seg Neuts % (Manual) Lymphocytes % (Manual) Nucleated RBC % Seg Neutrophils # Seg Neutrophils # Man Lymphocytes # (Manual) Monocytes # (Manual) Eosinophils # (Manual) PT INR APTT D-Dimer 2911.42 H Heparin Anti-Xa Level ABG pH POC ABG pCO2 POC ABG pO2 ABG pO2 ABG HCO3 ABG O2 Saturation ABG Base Excess ABG Hemoglobin ABG Oxyhemoglobin ABG Sodium ABG Potassium ABG Chloride ABG Glucose Oxyhemoglobin Sodium 136 L Potassium Chloride 96.0 L Carbon Dioxide 34 H BUN 22 H Creatinine Glucose 140 H POC Glucose Lactic Acid Calcium Magnesium Ferritin 2082.0 H Total Bilirubin Direct Bilirubin AST ALT 75 H Alkaline Phosphatase Lactate Dehydrogenase 601 H C-Reactive Protein 2.70 H Total Protein Albumin 2.9 L Triglycerides Lipase Arterial Blood Glucose Arterial Blood Ionized Calcium Urine WBC (Auto) Coronavirus (PCR) SARS-CoV-2 IgG Ab Crossmatch 05/17/20 05/18/20 05/20/20 05:50 12:22 08:16 WBC RBC Hgb Hct MCV 98 H MCH 33 H MCHC RDW Lymph % (Auto) 8.0 L Lymph # (Auto) 0.8 L [place] # (Auto) Baso # (Auto) Seg Neutrophils % 89.3 H Seg Neuts % (Manual) Lymphocytes % (Manual) Nucleated RBC % Seg Neutrophils # 8.8 H Seg Neutrophils # Man Lymphocytes # (Manual) Monocytes # (Manual) Eosinophils # (Manual) PT INR APTT D-Dimer 1887.82 H Heparin Anti-Xa Level ABG pH POC ABG pCO2 POC ABG pO2 ABG pO2 ABG HCO3 ABG O2 Saturation ABG Base Excess ABG Hemoglobin ABG Oxyhemoglobin ABG Sodium ABG Potassium ABG Chloride ABG Glucose Oxyhemoglobin Sodium Potassium Chloride Carbon Dioxide BUN Creatinine Glucose POC Glucose 178 H Lactic Acid Calcium Magnesium Ferritin Total Bilirubin Direct Bilirubin AST ALT Alkaline Phosphatase Lactate Dehydrogenase C-Reactive Protein Total Protein Albumin Triglycerides Lipase Arterial Blood Glucose Arterial Blood Ionized Calcium Urine WBC (Auto) Coronavirus (PCR) SARS-CoV-2 IgG Ab Crossmatch 05/20/20 05/20/20 05/21/20 08:16 08:16 21:10 WBC RBC Hgb Hct MCV MCH MCHC RDW Lymph % (Auto) Lymph # (Auto) [place] # (Auto) Baso # (Auto) Seg Neutrophils % Seg Neuts % (Manual) Lymphocytes % (Manual) Nucleated RBC % Seg Neutrophils # Seg Neutrophils # Man Lymphocytes # (Manual) Monocytes # (Manual) Eosinophils # (Manual) PT INR APTT D-Dimer Heparin Anti-Xa Level ABG pH 7.483 H POC ABG pCO2 POC ABG pO2 ABG pO2 50.0 L ABG HCO3 27.0 H ABG O2 Saturation 86.2 L ABG Base Excess 3.7 H ABG Hemoglobin ABG Oxyhemoglobin ABG Sodium ABG Potassium ABG Chloride ABG Glucose Oxyhemoglobin 84.2 L Sodium Potassium Chloride Carbon Dioxide BUN Creatinine Glucose POC Glucose Lactic Acid Calcium Magnesium Ferritin 1960.0 H Total Bilirubin Direct Bilirubin AST ALT Alkaline Phosphatase Lactate Dehydrogenase 705 H C-Reactive Protein 3.10 H Total Protein Albumin Triglycerides Lipase Arterial Blood Glucose Arterial Blood Ionized Calcium Urine WBC (Auto) Coronavirus (PCR) SARS-CoV-2 IgG Ab Crossmatch 05/22/20 05/22/20 05/22/20 04:01 07:53 07:53 WBC 19.2 H RBC Hgb Hct MCV 98 H MCH 34 H MCHC RDW Lymph % (Auto) Lymph # (Auto) [place] # (Auto) Baso # (Auto) Seg Neutrophils % Seg Neuts % (Manual) 96.0 H Lymphocytes % (Manual) 1.0 L Nucleated RBC % Seg Neutrophils # Seg Neutrophils # Man 18.4 H Lymphocytes # (Manual) 0.2 L Monocytes # (Manual) Eosinophils # (Manual) PT INR APTT D-Dimer Heparin Anti-Xa Level ABG pH POC ABG pCO2 53.8 H POC ABG pO2 125.5 H ABG pO2 ABG HCO3 ABG O2 Saturation ABG Base Excess ABG Hemoglobin ABG Oxyhemoglobin ABG Sodium 131.8 L ABG Potassium 4.8 H ABG Chloride 94.0 L ABG Glucose 163 H Oxyhemoglobin Sodium 131 L Potassium Chloride 93.4 L Carbon Dioxide BUN 40 H Creatinine Glucose 176 H POC Glucose Lactic Acid Calcium Magnesium 2.70 H Ferritin Total Bilirubin 1.80 H Direct Bilirubin AST 45 H ALT 116 H Alkaline Phosphatase 181 H Lactate Dehydrogenase C-Reactive Protein Total Protein Albumin 2.6 L Triglycerides Lipase Arterial Blood Glucose 163 H Arterial Blood Ionized Calcium 4.5 L Urine WBC (Auto) Coronavirus (PCR) SARS-CoV-2 IgG Ab Crossmatch 05/23/20 05/24/20 05/24/20 04:17 03:07 04:08 WBC RBC Hgb Hct MCV MCH MCHC RDW Lymph % (Auto) Lymph # (Auto) [place] # (Auto) Baso # (Auto) Seg Neutrophils % Seg Neuts % (Manual) Lymphocytes % (Manual) Nucleated RBC % Seg Neutrophils # Seg Neutrophils # Man Lymphocytes # (Manual) Monocytes # (Manual) Eosinophils # (Manual) PT INR APTT D-Dimer Heparin Anti-Xa Level ABG pH 7.328 L POC ABG pCO2 POC ABG pO2 ABG pO2 72.8 L 73.4 L ABG HCO3 31.0 H 34.0 H ABG O2 Saturation 93.5 L ABG Base Excess 3.5 H 7.7 H ABG Hemoglobin 13.3 L 12.1 L ABG Oxyhemoglobin ABG Sodium ABG Potassium ABG Chloride ABG Glucose Oxyhemoglobin 91.5 L 94.3 L Sodium Potassium Chloride Carbon Dioxide BUN Creatinine Glucose POC Glucose 155 H Lactic Acid Calcium Magnesium Ferritin Total Bilirubin Direct Bilirubin AST ALT Alkaline Phosphatase Lactate Dehydrogenase C-Reactive Protein Total Protein Albumin Triglycerides Lipase Arterial Blood Glucose Arterial Blood Ionized Calcium Urine WBC (Auto) Coronavirus (PCR) SARS-CoV-2 IgG Ab Crossmatch 05/24/20 05/24/20 05/24/20 09:33 12:21 17:52 WBC RBC Hgb Hct MCV MCH MCHC RDW Lymph % (Auto) Lymph # (Auto) [place] # (Auto) Baso # (Auto) Seg Neutrophils % Seg Neuts % (Manual) Lymphocytes % (Manual) Nucleated RBC % Seg Neutrophils # Seg Neutrophils # Man Lymphocytes # (Manual) Monocytes # (Manual) Eosinophils # (Manual) PT INR APTT D-Dimer Heparin Anti-Xa Level ABG pH POC ABG pCO2 POC ABG pO2 ABG pO2 ABG HCO3 ABG O2 Saturation ABG Base Excess ABG Hemoglobin ABG Oxyhemoglobin ABG Sodium ABG Potassium ABG Chloride ABG Glucose Oxyhemoglobin Sodium Potassium Chloride Carbon Dioxide 34 H D BUN 28 H Creatinine 0.7 L Glucose 168 H POC Glucose 173 H 164 H Lactic Acid Calcium Magnesium Ferritin Total Bilirubin Direct Bilirubin AST ALT Alkaline Phosphatase Lactate Dehydrogenase C-Reactive Protein Total Protein Albumin Triglycerides Lipase Arterial Blood Glucose Arterial Blood Ionized Calcium Urine WBC (Auto) Coronavirus (PCR) SARS-CoV-2 IgG Ab Crossmatch 05/24/20 05/25/20 05/25/20 23:47 04:29 05:46 WBC RBC Hgb Hct MCV MCH MCHC RDW Lymph % (Auto) Lymph # (Auto) [place] # (Auto) Baso # (Auto) Seg Neutrophils % Seg Neuts % (Manual) Lymphocytes % (Manual) Nucleated RBC % Seg Neutrophils # Seg Neutrophils # Man Lymphocytes # (Manual) Monocytes # (Manual) Eosinophils # (Manual) PT INR APTT D-Dimer Heparin Anti-Xa Level ABG pH POC ABG pCO2 68.6 H POC ABG pO2 ABG pO2 ABG HCO3 ABG O2 Saturation ABG Base Excess ABG Hemoglobin ABG Oxyhemoglobin ABG Sodium ABG Potassium 4.7 H ABG Chloride ABG Glucose 226 H Oxyhemoglobin Sodium Potassium Chloride Carbon Dioxide BUN Creatinine Glucose POC Glucose 171 H 201 H Lactic Acid Calcium Magnesium Ferritin Total Bilirubin Direct Bilirubin AST ALT Alkaline Phosphatase Lactate Dehydrogenase C-Reactive Protein Total Protein Albumin Triglycerides Lipase Arterial Blood Glucose 226 H Arterial Blood Ionized Calcium Urine WBC (Auto) Coronavirus (PCR) SARS-CoV-2 IgG Ab Crossmatch 05/25/20 05/25/20 05/25/20 08:37 08:37 12:38 WBC 12.0 H RBC 3.64 L Hgb Hct MCV 99 H MCH 33 H MCHC RDW Lymph % (Auto) Lymph # (Auto) [place] # (Auto) Baso # (Auto) Seg Neutrophils % Seg Neuts % (Manual) Lymphocytes % (Manual) Nucleated RBC % Seg Neutrophils # Seg Neutrophils # Man Lymphocytes # (Manual) Monocytes # (Manual) Eosinophils # (Manual) PT INR APTT D-Dimer Heparin Anti-Xa Level ABG pH POC ABG pCO2 POC ABG pO2 ABG pO2 ABG HCO3 ABG O2 Saturation ABG Base Excess ABG Hemoglobin ABG Oxyhemoglobin ABG Sodium ABG Potassium ABG Chloride ABG Glucose Oxyhemoglobin Sodium Potassium Chloride 97.3 L Carbon Dioxide 35 H BUN 25 H Creatinine 0.7 L Glucose 191 H POC Glucose 182 H Lactic Acid Calcium Magnesium Ferritin Total Bilirubin Direct Bilirubin AST ALT Alkaline Phosphatase Lactate Dehydrogenase C-Reactive Protein Total Protein Albumin Triglycerides Lipase Arterial Blood Glucose Arterial Blood Ionized Calcium Urine WBC (Auto) Coronavirus (PCR) SARS-CoV-2 IgG Ab Crossmatch 05/25/20 05/26/20 05/26/20 18:16 00:06 04:50 WBC RBC Hgb Hct MCV MCH MCHC RDW Lymph % (Auto) Lymph # (Auto) [place] # (Auto) Baso # (Auto) Seg Neutrophils % Seg Neuts % (Manual) Lymphocytes % (Manual) Nucleated RBC % Seg Neutrophils # Seg Neutrophils # Man Lymphocytes # (Manual) Monocytes # (Manual) Eosinophils # (Manual) PT INR APTT D-Dimer Heparin Anti-Xa Level ABG pH POC ABG pCO2 POC ABG pO2 ABG pO2 221.5 H ABG HCO3 40.4 H ABG O2 Saturation 99.3 H ABG Base Excess 12.8 H ABG Hemoglobin 10.4 L ABG Oxyhemoglobin ABG Sodium ABG Potassium ABG Chloride ABG Glucose Oxyhemoglobin Sodium Potassium Chloride Carbon Dioxide BUN Creatinine Glucose POC Glucose 176 H 152 H Lactic Acid Calcium Magnesium Ferritin Total Bilirubin Direct Bilirubin AST ALT Alkaline Phosphatase Lactate Dehydrogenase C-Reactive Protein Total Protein Albumin Triglycerides Lipase Arterial Blood Glucose Arterial Blood Ionized Calcium Urine WBC (Auto) Coronavirus (PCR) SARS-CoV-2 IgG Ab Crossmatch 05/26/20 05/26/20 05/26/20 06:11 07:51 07:51 WBC 13.4 H RBC 3.64 L Hgb Hct MCV 98 H MCH 33 H MCHC RDW Lymph % (Auto) Lymph # (Auto) [place] # (Auto) Baso # (Auto) Seg Neutrophils % Seg Neuts % (Manual) Lymphocytes % (Manual) Nucleated RBC % Seg Neutrophils # Seg Neutrophils # Man Lymphocytes # (Manual) Monocytes # (Manual) Eosinophils # (Manual) PT INR APTT D-Dimer Heparin Anti-Xa Level ABG pH POC ABG pCO2 POC ABG pO2 ABG pO2 ABG HCO3 ABG O2 Saturation ABG Base Excess ABG Hemoglobin ABG Oxyhemoglobin ABG Sodium ABG Potassium ABG Chloride ABG Glucose Oxyhemoglobin Sodium Potassium Chloride 96.6 L Carbon Dioxide 39 H BUN 29 H Creatinine 0.7 L Glucose 174 H POC Glucose 165 H Lactic Acid Calcium Magnesium Ferritin Total Bilirubin Direct Bilirubin AST ALT Alkaline Phosphatase Lactate Dehydrogenase C-Reactive Protein Total Protein Albumin Triglycerides Lipase Arterial Blood Glucose Arterial Blood Ionized Calcium Urine WBC (Auto) Coronavirus (PCR) SARS-CoV-2 IgG Ab Crossmatch 05/26/20 05/27/20 05/27/20 23:23 03:43 05:29 WBC RBC Hgb Hct MCV MCH MCHC RDW Lymph % (Auto) Lymph # (Auto) [place] # (Auto) Baso # (Auto) Seg Neutrophils % Seg Neuts % (Manual) Lymphocytes % (Manual) Nucleated RBC % Seg Neutrophils # Seg Neutrophils # Man Lymphocytes # (Manual) Monocytes # (Manual) Eosinophils # (Manual) PT INR APTT D-Dimer Heparin Anti-Xa Level ABG pH 7.480 H POC ABG pCO2 52.4 H POC ABG pO2 61.4 L ABG pO2 ABG HCO3 ABG O2 Saturation ABG Base Excess ABG Hemoglobin ABG Oxyhemoglobin ABG Sodium 134.9 L ABG Potassium ABG Chloride 95.0 L ABG Glucose 221 H Oxyhemoglobin Sodium Potassium Chloride Carbon Dioxide BUN Creatinine Glucose POC Glucose 169 H 227 H Lactic Acid Calcium Magnesium Ferritin Total Bilirubin Direct Bilirubin AST ALT Alkaline Phosphatase Lactate Dehydrogenase C-Reactive Protein Total Protein Albumin Triglycerides Lipase Arterial Blood Glucose 221 H Arterial Blood Ionized Calcium 4.5 L Urine WBC (Auto) Coronavirus (PCR) SARS-CoV-2 IgG Ab Crossmatch 05/27/20 05/27/20 05/27/20 07:19 12:18 13:50 WBC RBC Hgb Hct MCV MCH MCHC RDW Lymph % (Auto) Lymph # (Auto) [place] # (Auto) Baso # (Auto) Seg Neutrophils % Seg Neuts % (Manual) Lymphocytes % (Manual) Nucleated RBC % Seg Neutrophils # Seg Neutrophils # Man Lymphocytes # (Manual) Monocytes # (Manual) Eosinophils # (Manual) PT INR APTT D-Dimer Heparin Anti-Xa Level ABG pH POC ABG pCO2 POC ABG pO2 ABG pO2 ABG HCO3 ABG O2 Saturation ABG Base Excess ABG Hemoglobin ABG Oxyhemoglobin ABG Sodium ABG Potassium ABG Chloride ABG Glucose Oxyhemoglobin Sodium Potassium Chloride Carbon Dioxide BUN Creatinine Glucose POC Glucose 114 H 148 H Lactic Acid Calcium Magnesium Ferritin Total Bilirubin Direct Bilirubin AST ALT Alkaline Phosphatase Lactate Dehydrogenase C-Reactive Protein Total Protein Albumin Triglycerides 247 H Lipase Arterial Blood Glucose Arterial Blood Ionized Calcium Urine WBC (Auto) Coronavirus (PCR) SARS-CoV-2 IgG Ab Crossmatch 05/28/20 05/28/20 05/28/20 00:13 04:16 05:22 WBC RBC Hgb Hct MCV MCH MCHC RDW Lymph % (Auto) Lymph # (Auto) [place] # (Auto) Baso # (Auto) Seg Neutrophils % Seg Neuts % (Manual) Lymphocytes % (Manual) Nucleated RBC % Seg Neutrophils # Seg Neutrophils # Man Lymphocytes # (Manual) Monocytes # (Manual) Eosinophils # (Manual) PT INR APTT D-Dimer Heparin Anti-Xa Level ABG pH POC ABG pCO2 64.4 H POC ABG pO2 60.5 L ABG pO2 ABG HCO3 ABG O2 Saturation ABG Base Excess ABG Hemoglobin ABG Oxyhemoglobin ABG Sodium ABG Potassium ABG Chloride 95.0 L ABG Glucose 209 H Oxyhemoglobin Sodium Potassium Chloride Carbon Dioxide BUN Creatinine Glucose POC Glucose 155 H 186 H Lactic Acid Calcium Magnesium Ferritin Total Bilirubin Direct Bilirubin AST ALT Alkaline Phosphatase Lactate Dehydrogenase C-Reactive Protein Total Protein Albumin Triglycerides Lipase Arterial Blood Glucose 209 H Arterial Blood Ionized Calcium Urine WBC (Auto) Coronavirus (PCR) SARS-CoV-2 IgG Ab Crossmatch 05/28/20 05/28/20 05/29/20 12:45 17:39 00:37 WBC RBC Hgb Hct MCV MCH MCHC RDW Lymph % (Auto) Lymph # (Auto) [place] # (Auto) Baso # (Auto) Seg Neutrophils % Seg Neuts % (Manual) Lymphocytes % (Manual) Nucleated RBC % Seg Neutrophils # Seg Neutrophils # Man Lymphocytes # (Manual) Monocytes # (Manual) Eosinophils # (Manual) PT INR APTT D-Dimer Heparin Anti-Xa Level ABG pH POC ABG pCO2 POC ABG pO2 ABG pO2 ABG HCO3 ABG O2 Saturation ABG Base Excess ABG Hemoglobin ABG Oxyhemoglobin ABG Sodium ABG Potassium ABG Chloride ABG Glucose Oxyhemoglobin Sodium Potassium Chloride Carbon Dioxide BUN Creatinine Glucose POC Glucose 143 H 164 H 221 H Lactic Acid Calcium Magnesium Ferritin Total Bilirubin Direct Bilirubin AST ALT Alkaline Phosphatase Lactate Dehydrogenase C-Reactive Protein Total Protein Albumin Triglycerides Lipase Arterial Blood Glucose Arterial Blood Ionized Calcium Urine WBC (Auto) Coronavirus (PCR) SARS-CoV-2 IgG Ab Crossmatch 05/29/20 05/29/20 05/29/20 04:15 05:33 12:34 WBC RBC Hgb Hct MCV MCH MCHC RDW Lymph % (Auto) Lymph # (Auto) [place] # (Auto) Baso # (Auto) Seg Neutrophils % Seg Neuts % (Manual) Lymphocytes % (Manual) Nucleated RBC % Seg Neutrophils # Seg Neutrophils # Man Lymphocytes # (Manual) Monocytes # (Manual) Eosinophils # (Manual) PT INR APTT D-Dimer Heparin Anti-Xa Level ABG pH 7.463 H POC ABG pCO2 56.3 H POC ABG pO2 81.2 L ABG pO2 ABG HCO3 ABG O2 Saturation ABG Base Excess ABG Hemoglobin ABG Oxyhemoglobin ABG Sodium ABG Potassium ABG Chloride 96.0 L ABG Glucose 194 H Oxyhemoglobin Sodium Potassium Chloride Carbon Dioxide BUN Creatinine Glucose POC Glucose 133 H 221 H Lactic Acid Calcium Magnesium Ferritin Total Bilirubin Direct Bilirubin AST ALT Alkaline Phosphatase Lactate Dehydrogenase C-Reactive Protein Total Protein Albumin Triglycerides Lipase Arterial Blood Glucose 194 H Arterial Blood Ionized Calcium 4.5 L Urine WBC (Auto) Coronavirus (PCR) SARS-CoV-2 IgG Ab Crossmatch 05/29/20 05/30/20 05/30/20 18:07 00:12 05:38 WBC RBC Hgb Hct MCV MCH MCHC RDW Lymph % (Auto) Lymph # (Auto) [place] # (Auto) Baso # (Auto) Seg Neutrophils % Seg Neuts % (Manual) Lymphocytes % (Manual) Nucleated RBC % Seg Neutrophils # Seg Neutrophils # Man Lymphocytes # (Manual) Monocytes # (Manual) Eosinophils # (Manual) PT INR APTT D-Dimer Heparin Anti-Xa Level ABG pH POC ABG pCO2 POC ABG pO2 ABG pO2 ABG HCO3 ABG O2 Saturation ABG Base Excess ABG Hemoglobin ABG Oxyhemoglobin ABG Sodium ABG Potassium ABG Chloride ABG Glucose Oxyhemoglobin Sodium Potassium Chloride Carbon Dioxide BUN Creatinine Glucose POC Glucose 162 H 190 H 208 H Lactic Acid Calcium Magnesium Ferritin Total Bilirubin Direct Bilirubin AST ALT Alkaline Phosphatase Lactate Dehydrogenase C-Reactive Protein Total Protein Albumin Triglycerides Lipase Arterial Blood Glucose Arterial Blood Ionized Calcium Urine WBC (Auto) Coronavirus (PCR) SARS-CoV-2 IgG Ab Crossmatch 05/30/20 05/30/20 05/30/20 09:30 11:35 11:54 WBC 12.4 H RBC 3.48 L Hgb 11.3 L Hct 34.6 L MCV 99 H MCH 33 H MCHC RDW Lymph % (Auto) Lymph # (Auto) [place] # (Auto) Baso # (Auto) Seg Neutrophils % Seg Neuts % (Manual) Lymphocytes % (Manual) Nucleated RBC % Seg Neutrophils # Seg Neutrophils # Man Lymphocytes # (Manual) Monocytes # (Manual) Eosinophils # (Manual) PT INR APTT D-Dimer Heparin Anti-Xa Level ABG pH 7.455 H POC ABG pCO2 57.5 H POC ABG pO2 81.5 L ABG pO2 ABG HCO3 ABG O2 Saturation ABG Base Excess ABG Hemoglobin ABG Oxyhemoglobin ABG Sodium ABG Potassium ABG Chloride 96.0 L ABG Glucose 204 H Oxyhemoglobin Sodium Potassium Chloride Carbon Dioxide BUN Creatinine Glucose POC Glucose 183 H Lactic Acid Calcium Magnesium Ferritin Total Bilirubin Direct Bilirubin AST ALT Alkaline Phosphatase Lactate Dehydrogenase C-Reactive Protein Total Protein Albumin Triglycerides Lipase Arterial Blood Glucose 204 H Arterial Blood Ionized Calcium Urine WBC (Auto) Coronavirus (PCR) SARS-CoV-2 IgG Ab Crossmatch 05/30/20 05/31/20 05/31/20 18:01 00:10 03:22 WBC RBC Hgb Hct MCV MCH MCHC RDW Lymph % (Auto) Lymph # (Auto) [place] # (Auto) Baso # (Auto) Seg Neutrophils % Seg Neuts % (Manual) Lymphocytes % (Manual) Nucleated RBC % Seg Neutrophils # Seg Neutrophils # Man Lymphocytes # (Manual) Monocytes # (Manual) Eosinophils # (Manual) PT INR APTT D-Dimer Heparin Anti-Xa Level ABG pH POC ABG pCO2 60.4 H POC ABG pO2 71.5 L ABG pO2 ABG HCO3 ABG O2 Saturation ABG Base Excess ABG Hemoglobin ABG Oxyhemoglobin ABG Sodium ABG Potassium ABG Chloride 96.0 L ABG Glucose 169 H Oxyhemoglobin Sodium Potassium Chloride Carbon Dioxide BUN Creatinine Glucose POC Glucose 184 H 135 H Lactic Acid Calcium Magnesium Ferritin Total Bilirubin Direct Bilirubin AST ALT Alkaline Phosphatase Lactate Dehydrogenase C-Reactive Protein Total Protein Albumin Triglycerides Lipase Arterial Blood Glucose 169 H Arterial Blood Ionized Calcium 4.5 L Urine WBC (Auto) Coronavirus (PCR) SARS-CoV-2 IgG Ab Crossmatch 05/31/20 05/31/20 05/31/20 05:24 11:18 14:41 WBC RBC Hgb Hct MCV MCH MCHC RDW Lymph % (Auto) Lymph # (Auto) [place] # (Auto) Baso # (Auto) Seg Neutrophils % Seg Neuts % (Manual) Lymphocytes % (Manual) Nucleated RBC % Seg Neutrophils # Seg Neutrophils # Man Lymphocytes # (Manual) Monocytes # (Manual) Eosinophils # (Manual) PT INR APTT D-Dimer Heparin Anti-Xa Level ABG pH POC ABG pCO2 POC ABG pO2 ABG pO2 ABG HCO3 ABG O2 Saturation ABG Base Excess ABG Hemoglobin ABG Oxyhemoglobin ABG Sodium ABG Potassium ABG Chloride ABG Glucose Oxyhemoglobin Sodium Potassium Chloride 96.8 L Carbon Dioxide 37 H BUN 31 H Creatinine 0.6 L Glucose 213 H POC Glucose 164 H 208 H Lactic Acid Calcium Magnesium Ferritin Total Bilirubin Direct Bilirubin AST ALT Alkaline Phosphatase Lactate Dehydrogenase C-Reactive Protein Total Protein Albumin Triglycerides Lipase Arterial Blood Glucose Arterial Blood Ionized Calcium Urine WBC (Auto) Coronavirus (PCR) SARS-CoV-2 IgG Ab Crossmatch 05/31/20 05/31/20 06/01/20 17:37 23:47 03:48 WBC RBC Hgb Hct MCV MCH MCHC RDW Lymph % (Auto) Lymph # (Auto) [place] # (Auto) Baso # (Auto) Seg Neutrophils % Seg Neuts % (Manual) Lymphocytes % (Manual) Nucleated RBC % Seg Neutrophils # Seg Neutrophils # Man Lymphocytes # (Manual) Monocytes # (Manual) Eosinophils # (Manual) PT INR APTT D-Dimer Heparin Anti-Xa Level ABG pH POC ABG pCO2 59.7 H POC ABG pO2 73.9 L ABG pO2 ABG HCO3 ABG O2 Saturation ABG Base Excess ABG Hemoglobin ABG Oxyhemoglobin ABG Sodium ABG Potassium ABG Chloride 95.0 L ABG Glucose 256 H Oxyhemoglobin Sodium Potassium Chloride Carbon Dioxide BUN Creatinine Glucose POC Glucose 168 H 178 H Lactic Acid Calcium Magnesium Ferritin Total Bilirubin Direct Bilirubin AST ALT Alkaline Phosphatase Lactate Dehydrogenase C-Reactive Protein Total Protein Albumin Triglycerides Lipase Arterial Blood Glucose 256 H Arterial Blood Ionized Calcium Urine WBC (Auto) Coronavirus (PCR) SARS-CoV-2 IgG Ab Crossmatch 06/01/20 06/01/20 06/01/20 05:01 07:47 07:47 WBC 14.4 H RBC 3.46 L Hgb 11.1 L Hct 34.3 L MCV 99 H MCH MCHC RDW Lymph % (Auto) Lymph # (Auto) [place] # (Auto) Baso # (Auto) Seg Neutrophils % Seg Neuts % (Manual) 86.0 H Lymphocytes % (Manual) 9.0 L Nucleated RBC % Seg Neutrophils # Seg Neutrophils # Man 12.4 H Lymphocytes # (Manual) Monocytes # (Manual) Eosinophils # (Manual) PT INR APTT D-Dimer Heparin Anti-Xa Level ABG pH POC ABG pCO2 POC ABG pO2 ABG pO2 ABG HCO3 ABG O2 Saturation ABG Base Excess ABG Hemoglobin ABG Oxyhemoglobin ABG Sodium ABG Potassium ABG Chloride ABG Glucose Oxyhemoglobin Sodium Potassium Chloride Carbon Dioxide BUN Creatinine Glucose POC Glucose 197 H Lactic Acid Calcium Magnesium Ferritin Total Bilirubin Direct Bilirubin AST ALT Alkaline Phosphatase Lactate Dehydrogenase C-Reactive Protein Total Protein Albumin Triglycerides 244 H Lipase Arterial Blood Glucose Arterial Blood Ionized Calcium Urine WBC (Auto) Coronavirus (PCR) SARS-CoV-2 IgG Ab Crossmatch 06/01/20 06/01/20 06/01/20 07:47 11:46 18:15 WBC RBC Hgb Hct MCV MCH MCHC RDW Lymph % (Auto) Lymph # (Auto) [place] # (Auto) Baso # (Auto) Seg Neutrophils % Seg Neuts % (Manual) Lymphocytes % (Manual) Nucleated RBC % Seg Neutrophils # Seg Neutrophils # Man Lymphocytes # (Manual) Monocytes # (Manual) Eosinophils # (Manual) PT INR APTT D-Dimer Heparin Anti-Xa Level ABG pH POC ABG pCO2 POC ABG pO2 ABG pO2 ABG HCO3 ABG O2 Saturation ABG Base Excess ABG Hemoglobin ABG Oxyhemoglobin ABG Sodium ABG Potassium ABG Chloride ABG Glucose Oxyhemoglobin Sodium Potassium Chloride 95.4 L Carbon Dioxide 35 H BUN 30 H Creatinine 0.5 L Glucose 214 H POC Glucose 181 H 221 H Lactic Acid Calcium Magnesium Ferritin Total Bilirubin Direct Bilirubin AST 54 H ALT 235 H Alkaline Phosphatase Lactate Dehydrogenase C-Reactive Protein Total Protein Albumin 2.9 L Triglycerides Lipase Arterial Blood Glucose Arterial Blood Ionized Calcium Urine WBC (Auto) Coronavirus (PCR) SARS-CoV-2 IgG Ab Crossmatch 06/01/20 06/02/20 06/02/20 23:12 04:00 05:31 WBC RBC Hgb Hct MCV MCH MCHC RDW Lymph % (Auto) Lymph # (Auto) [place] # (Auto) Baso # (Auto) Seg Neutrophils % Seg Neuts % (Manual) Lymphocytes % (Manual) Nucleated RBC % Seg Neutrophils # Seg Neutrophils # Man Lymphocytes # (Manual) Monocytes # (Manual) Eosinophils # (Manual) PT INR APTT D-Dimer Heparin Anti-Xa Level ABG pH 7.465 H POC ABG pCO2 POC ABG pO2 ABG pO2 203.4 H ABG HCO3 41.2 H ABG O2 Saturation 99.3 H ABG Base Excess 15.1 H ABG Hemoglobin 11.5 L ABG Oxyhemoglobin ABG Sodium ABG Potassium ABG Chloride ABG Glucose Oxyhemoglobin Sodium Potassium Chloride Carbon Dioxide BUN Creatinine Glucose POC Glucose 197 H 184 H Lactic Acid Calcium Magnesium Ferritin Total Bilirubin Direct Bilirubin AST ALT Alkaline Phosphatase Lactate Dehydrogenase C-Reactive Protein Total Protein Albumin Triglycerides Lipase Arterial Blood Glucose Arterial Blood Ionized Calcium Urine WBC (Auto) Coronavirus (PCR) SARS-CoV-2 IgG Ab Crossmatch 06/02/20 06/02/20 06/02/20 11:49 18:06 23:00 WBC RBC Hgb Hct MCV MCH MCHC RDW Lymph % (Auto) Lymph # (Auto) [place] # (Auto) Baso # (Auto) Seg Neutrophils % Seg Neuts % (Manual) Lymphocytes % (Manual) Nucleated RBC % Seg Neutrophils # Seg Neutrophils # Man Lymphocytes # (Manual) Monocytes # (Manual) Eosinophils # (Manual) PT INR APTT D-Dimer Heparin Anti-Xa Level ABG pH POC ABG pCO2 POC ABG pO2 ABG pO2 ABG HCO3 ABG O2 Saturation ABG Base Excess ABG Hemoglobin ABG Oxyhemoglobin ABG Sodium ABG Potassium ABG Chloride ABG Glucose Oxyhemoglobin Sodium Potassium Chloride Carbon Dioxide BUN Creatinine Glucose POC Glucose 195 H 177 H 228 H Lactic Acid Calcium Magnesium Ferritin Total Bilirubin Direct Bilirubin AST ALT Alkaline Phosphatase Lactate Dehydrogenase C-Reactive Protein Total Protein Albumin Triglycerides Lipase Arterial Blood Glucose Arterial Blood Ionized Calcium Urine WBC (Auto) Coronavirus (PCR) SARS-CoV-2 IgG Ab Crossmatch 06/03/20 06/03/20 06/03/20 03:58 05:19 12:21 WBC RBC Hgb Hct MCV MCH MCHC RDW Lymph % (Auto) Lymph # (Auto) [place] # (Auto) Baso # (Auto) Seg Neutrophils % Seg Neuts % (Manual) Lymphocytes % (Manual) Nucleated RBC % Seg Neutrophils # Seg Neutrophils # Man Lymphocytes # (Manual) Monocytes # (Manual) Eosinophils # (Manual) PT INR APTT D-Dimer Heparin Anti-Xa Level ABG pH POC ABG pCO2 POC ABG pO2 ABG pO2 171.0 H ABG HCO3 42.8 H ABG O2 Saturation ABG Base Excess 15.6 H ABG Hemoglobin 12.3 L ABG Oxyhemoglobin ABG Sodium ABG Potassium ABG Chloride ABG Glucose Oxyhemoglobin Sodium Potassium Chloride Carbon Dioxide BUN Creatinine Glucose POC Glucose 122 H 207 H Lactic Acid Calcium Magnesium Ferritin Total Bilirubin Direct Bilirubin AST ALT Alkaline Phosphatase Lactate Dehydrogenase C-Reactive Protein Total Protein Albumin Triglycerides Lipase Arterial Blood Glucose Arterial Blood Ionized Calcium Urine WBC (Auto) Coronavirus (PCR) SARS-CoV-2 IgG Ab Crossmatch 06/03/20 06/03/20 06/04/20 17:27 23:50 03:55 WBC RBC Hgb Hct MCV MCH MCHC RDW Lymph % (Auto) Lymph # (Auto) [place] # (Auto) Baso # (Auto) Seg Neutrophils % Seg Neuts % (Manual) Lymphocytes % (Manual) Nucleated RBC % Seg Neutrophils # Seg Neutrophils # Man Lymphocytes # (Manual) Monocytes # (Manual) Eosinophils # (Manual) PT INR APTT D-Dimer Heparin Anti-Xa Level ABG pH POC ABG pCO2 POC ABG pO2 ABG pO2 117.2 H ABG HCO3 42.4 H ABG O2 Saturation ABG Base Excess 15.3 H ABG Hemoglobin 10.5 L ABG Oxyhemoglobin ABG Sodium ABG Potassium ABG Chloride ABG Glucose Oxyhemoglobin Sodium Potassium Chloride Carbon Dioxide BUN Creatinine Glucose POC Glucose 157 H 214 H Lactic Acid Calcium Magnesium Ferritin Total Bilirubin Direct Bilirubin AST ALT Alkaline Phosphatase Lactate Dehydrogenase C-Reactive Protein Total Protein Albumin Triglycerides Lipase Arterial Blood Glucose Arterial Blood Ionized Calcium Urine WBC (Auto) Coronavirus (PCR) SARS-CoV-2 IgG Ab Crossmatch 06/04/20 06/04/20 06/04/20 05:49 11:41 17:30 WBC RBC Hgb Hct MCV MCH MCHC RDW Lymph % (Auto) Lymph # (Auto) [place] # (Auto) Baso # (Auto) Seg Neutrophils % Seg Neuts % (Manual) Lymphocytes % (Manual) Nucleated RBC % Seg Neutrophils # Seg Neutrophils # Man Lymphocytes # (Manual) Monocytes # (Manual) Eosinophils # (Manual) PT INR APTT D-Dimer Heparin Anti-Xa Level ABG pH POC ABG pCO2 POC ABG pO2 ABG pO2 ABG HCO3 ABG O2 Saturation ABG Base Excess ABG Hemoglobin ABG Oxyhemoglobin ABG Sodium ABG Potassium ABG Chloride ABG Glucose Oxyhemoglobin Sodium Potassium Chloride Carbon Dioxide BUN Creatinine Glucose POC Glucose 149 H 233 H 156 H Lactic Acid Calcium Magnesium Ferritin Total Bilirubin Direct Bilirubin AST ALT Alkaline Phosphatase Lactate Dehydrogenase C-Reactive Protein Total Protein Albumin Triglycerides Lipase Arterial Blood Glucose Arterial Blood Ionized Calcium Urine WBC (Auto) Coronavirus (PCR) SARS-CoV-2 IgG Ab Crossmatch 06/04/20 06/04/20 06/04/20 19:01 20:53 23:41 WBC RBC 3.18 L Hgb 10.8 L Hct 31.8 L MCV 100 H MCH 34 H MCHC RDW Lymph % (Auto) Lymph # (Auto) [place] # (Auto) Baso # (Auto) Seg Neutrophils % Seg Neuts % (Manual) 86.0 H Lymphocytes % (Manual) 10.0 L Nucleated RBC % 1.0 H Seg Neutrophils # Seg Neutrophils # Man 8.5 H Lymphocytes # (Manual) 1.0 L Monocytes # (Manual) Eosinophils # (Manual) PT INR APTT D-Dimer Heparin Anti-Xa Level ABG pH POC ABG pCO2 POC ABG pO2 ABG pO2 ABG HCO3 ABG O2 Saturation ABG Base Excess ABG Hemoglobin ABG Oxyhemoglobin ABG Sodium ABG Potassium ABG Chloride ABG Glucose Oxyhemoglobin Sodium Potassium 3.4 L D Chloride 96.5 L Carbon Dioxide 41 H* BUN 27 H Creatinine 0.5 L Glucose 173 H POC Glucose 217 H Lactic Acid Calcium Magnesium Ferritin Total Bilirubin Direct Bilirubin AST ALT Alkaline Phosphatase Lactate Dehydrogenase C-Reactive Protein Total Protein Albumin Triglycerides Lipase Arterial Blood Glucose Arterial Blood Ionized Calcium Urine WBC (Auto) Coronavirus (PCR) SARS-CoV-2 IgG Ab Crossmatch 06/05/20 06/05/20 06/05/20 06:05 11:54 12:35 WBC RBC Hgb Hct MCV MCH MCHC RDW Lymph % (Auto) Lymph # (Auto) [place] # (Auto) Baso # (Auto) Seg Neutrophils % Seg Neuts % (Manual) Lymphocytes % (Manual) Nucleated RBC % Seg Neutrophils # Seg Neutrophils # Man Lymphocytes # (Manual) Monocytes # (Manual) Eosinophils # (Manual) PT INR APTT D-Dimer Heparin Anti-Xa Level ABG pH POC ABG pCO2 POC ABG pO2 ABG pO2 127.9 H ABG HCO3 41.1 H ABG O2 Saturation ABG Base Excess 13.0 H ABG Hemoglobin 13.4 L ABG Oxyhemoglobin ABG Sodium ABG Potassium ABG Chloride ABG Glucose Oxyhemoglobin Sodium Potassium Chloride Carbon Dioxide BUN Creatinine Glucose POC Glucose 137 H 211 H Lactic Acid Calcium Magnesium Ferritin Total Bilirubin Direct Bilirubin AST ALT Alkaline Phosphatase Lactate Dehydrogenase C-Reactive Protein Total Protein Albumin Triglycerides Lipase Arterial Blood Glucose Arterial Blood Ionized Calcium Urine WBC (Auto) Coronavirus (PCR) SARS-CoV-2 IgG Ab Crossmatch 06/05/20 06/05/20 06/06/20 17:03 23:49 04:42 WBC RBC Hgb Hct MCV MCH MCHC RDW Lymph % (Auto) Lymph # (Auto) [place] # (Auto) Baso # (Auto) Seg Neutrophils % Seg Neuts % (Manual) Lymphocytes % (Manual) Nucleated RBC % Seg Neutrophils # Seg Neutrophils # Man Lymphocytes # (Manual) Monocytes # (Manual) Eosinophils # (Manual) PT INR APTT D-Dimer Heparin Anti-Xa Level ABG pH POC ABG pCO2 56.1 H POC ABG pO2 52.5 L ABG pO2 ABG HCO3 ABG O2 Saturation ABG Base Excess ABG Hemoglobin 11.7 L ABG Oxyhemoglobin ABG Sodium ABG Potassium 3.3 L ABG Chloride 95.0 L ABG Glucose 156 H Oxyhemoglobin Sodium Potassium Chloride Carbon Dioxide BUN Creatinine Glucose POC Glucose 159 H 194 H Lactic Acid Calcium Magnesium Ferritin Total Bilirubin Direct Bilirubin AST ALT Alkaline Phosphatase Lactate Dehydrogenase C-Reactive Protein Total Protein Albumin Triglycerides Lipase Arterial Blood Glucose 156 H Arterial Blood Ionized Calcium Urine WBC (Auto) Coronavirus (PCR) SARS-CoV-2 IgG Ab Crossmatch 06/06/20 06/06/20 06/06/20 05:57 12:06 17:38 WBC RBC Hgb Hct MCV MCH MCHC RDW Lymph % (Auto) Lymph # (Auto) [place] # (Auto) Baso # (Auto) Seg Neutrophils % Seg Neuts % (Manual) Lymphocytes % (Manual) Nucleated RBC % Seg Neutrophils # Seg Neutrophils # Man Lymphocytes # (Manual) Monocytes # (Manual) Eosinophils # (Manual) PT INR APTT D-Dimer Heparin Anti-Xa Level ABG pH POC ABG pCO2 POC ABG pO2 ABG pO2 ABG HCO3 ABG O2 Saturation ABG Base Excess ABG Hemoglobin ABG Oxyhemoglobin ABG Sodium ABG Potassium ABG Chloride ABG Glucose Oxyhemoglobin Sodium Potassium Chloride Carbon Dioxide BUN Creatinine Glucose POC Glucose 144 H 230 H 162 H Lactic Acid Calcium Magnesium Ferritin Total Bilirubin Direct Bilirubin AST ALT Alkaline Phosphatase Lactate Dehydrogenase C-Reactive Protein Total Protein Albumin Triglycerides Lipase Arterial Blood Glucose Arterial Blood Ionized Calcium Urine WBC (Auto) Coronavirus (PCR) SARS-CoV-2 IgG Ab Crossmatch 06/06/20 06/07/20 06/07/20 23:50 04:34 06:03 WBC RBC Hgb Hct MCV MCH MCHC RDW Lymph % (Auto) Lymph # (Auto) [place] # (Auto) Baso # (Auto) Seg Neutrophils % Seg Neuts % (Manual) Lymphocytes % (Manual) Nucleated RBC % Seg Neutrophils # Seg Neutrophils # Man Lymphocytes # (Manual) Monocytes # (Manual) Eosinophils # (Manual) PT INR APTT D-Dimer Heparin Anti-Xa Level ABG pH 7.511 H POC ABG pCO2 53.5 H POC ABG pO2 114.5 H ABG pO2 ABG HCO3 ABG O2 Saturation ABG Base Excess ABG Hemoglobin 9.4 L ABG Oxyhemoglobin ABG Sodium 134.5 L ABG Potassium ABG Chloride 94.0 L ABG Glucose 186 H Oxyhemoglobin Sodium Potassium Chloride Carbon Dioxide BUN Creatinine Glucose POC Glucose 181 H 155 H Lactic Acid Calcium Magnesium Ferritin Total Bilirubin Direct Bilirubin AST ALT Alkaline Phosphatase Lactate Dehydrogenase C-Reactive Protein Total Protein Albumin Triglycerides Lipase Arterial Blood Glucose 186 H Arterial Blood Ionized Calcium 4.5 L Urine WBC (Auto) Coronavirus (PCR) SARS-CoV-2 IgG Ab Crossmatch 06/07/20 06/07/20 06/07/20 13:41 14:58 14:58 WBC RBC 2.72 L Hgb 9.3 L Hct 27.2 L MCV 100 H MCH 34 H MCHC RDW Lymph % (Auto) Lymph # (Auto) [place] # (Auto) Baso # (Auto) Seg Neutrophils % Seg Neuts % (Manual) Lymphocytes % (Manual) Nucleated RBC % Seg Neutrophils # Seg Neutrophils # Man Lymphocytes # (Manual) Monocytes # (Manual) Eosinophils # (Manual) PT INR APTT D-Dimer Heparin Anti-Xa Level ABG pH POC ABG pCO2 POC ABG pO2 ABG pO2 ABG HCO3 ABG O2 Saturation ABG Base Excess ABG Hemoglobin ABG Oxyhemoglobin ABG Sodium ABG Potassium ABG Chloride ABG Glucose Oxyhemoglobin Sodium Potassium Chloride 93.5 L Carbon Dioxide 39 H BUN 22 H Creatinine 0.4 L Glucose 188 H POC Glucose 201 H Lactic Acid Calcium Magnesium Ferritin Total Bilirubin Direct Bilirubin AST 61 H ALT 273 H Alkaline Phosphatase Lactate Dehydrogenase C-Reactive Protein Total Protein 5.9 L Albumin 2.7 L Triglycerides Lipase Arterial Blood Glucose Arterial Blood Ionized Calcium Urine WBC (Auto) Coronavirus (PCR) SARS-CoV-2 IgG Ab Crossmatch 06/07/20 06/08/20 06/08/20 23:18 05:31 12:07 WBC RBC Hgb Hct MCV MCH MCHC RDW Lymph % (Auto) Lymph # (Auto) [place] # (Auto) Baso # (Auto) Seg Neutrophils % Seg Neuts % (Manual) Lymphocytes % (Manual) Nucleated RBC % Seg Neutrophils # Seg Neutrophils # Man Lymphocytes # (Manual) Monocytes # (Manual) Eosinophils # (Manual) PT INR APTT D-Dimer Heparin Anti-Xa Level ABG pH POC ABG pCO2 POC ABG pO2 ABG pO2 ABG HCO3 ABG O2 Saturation ABG Base Excess ABG Hemoglobin ABG Oxyhemoglobin ABG Sodium ABG Potassium ABG Chloride ABG Glucose Oxyhemoglobin Sodium Potassium Chloride Carbon Dioxide BUN Creatinine Glucose POC Glucose 214 H 129 H 179 H Lactic Acid Calcium Magnesium Ferritin Total Bilirubin Direct Bilirubin AST ALT Alkaline Phosphatase Lactate Dehydrogenase C-Reactive Protein Total Protein Albumin Triglycerides Lipase Arterial Blood Glucose Arterial Blood Ionized Calcium Urine WBC (Auto) Coronavirus (PCR) SARS-CoV-2 IgG Ab Crossmatch 06/08/20 06/08/20 06/09/20 18:18 23:35 05:42 WBC RBC Hgb Hct MCV MCH MCHC RDW Lymph % (Auto) Lymph # (Auto) [place] # (Auto) Baso # (Auto) Seg Neutrophils % Seg Neuts % (Manual) Lymphocytes % (Manual) Nucleated RBC % Seg Neutrophils # Seg Neutrophils # Man Lymphocytes # (Manual) Monocytes # (Manual) Eosinophils # (Manual) PT INR APTT D-Dimer Heparin Anti-Xa Level ABG pH POC ABG pCO2 POC ABG pO2 ABG pO2 ABG HCO3 ABG O2 Saturation ABG Base Excess ABG Hemoglobin ABG Oxyhemoglobin ABG Sodium ABG Potassium ABG Chloride ABG Glucose Oxyhemoglobin Sodium Potassium Chloride Carbon Dioxide BUN Creatinine Glucose POC Glucose 172 H 177 H 137 H Lactic Acid Calcium Magnesium Ferritin Total Bilirubin Direct Bilirubin AST ALT Alkaline Phosphatase Lactate Dehydrogenase C-Reactive Protein Total Protein Albumin Triglycerides Lipase Arterial Blood Glucose Arterial Blood Ionized Calcium Urine WBC (Auto) Coronavirus (PCR) SARS-CoV-2 IgG Ab Crossmatch 06/09/20 06/09/20 06/09/20 06:20 07:55 07:55 WBC 12.4 H RBC 3.26 L Hgb 11.1 L Hct 33.4 L D MCV 102 H MCH 34 H MCHC RDW Lymph % (Auto) Lymph # (Auto) [place] # (Auto) Baso # (Auto) Seg Neutrophils % Seg Neuts % (Manual) Lymphocytes % (Manual) Nucleated RBC % Seg Neutrophils # Seg Neutrophils # Man Lymphocytes # (Manual) Monocytes # (Manual) Eosinophils # (Manual) PT INR APTT D-Dimer Heparin Anti-Xa Level ABG pH 7.466 H POC ABG pCO2 50.7 H POC ABG pO2 53.0 L ABG pO2 ABG HCO3 ABG O2 Saturation ABG Base Excess ABG Hemoglobin ABG Oxyhemoglobin ABG Sodium ABG Potassium 2.9 L ABG Chloride 93.0 L ABG Glucose 138 H Oxyhemoglobin Sodium Potassium 3.0 L Chloride 92.3 L Carbon Dioxide 37 H BUN 21 H Creatinine 0.6 L Glucose 120 H POC Glucose Lactic Acid Calcium Magnesium Ferritin Total Bilirubin Direct Bilirubin AST ALT Alkaline Phosphatase Lactate Dehydrogenase C-Reactive Protein Total Protein Albumin Triglycerides Lipase Arterial Blood Glucose 138 H Arterial Blood Ionized Calcium 4.5 L Urine WBC (Auto) Coronavirus (PCR) SARS-CoV-2 IgG Ab Crossmatch 06/09/20 06/09/20 06/10/20 11:22 18:32 04:46 WBC RBC Hgb Hct MCV MCH MCHC RDW Lymph % (Auto) Lymph # (Auto) [place] # (Auto) Baso # (Auto) Seg Neutrophils % Seg Neuts % (Manual) Lymphocytes % (Manual) Nucleated RBC % Seg Neutrophils # Seg Neutrophils # Man Lymphocytes # (Manual) Monocytes # (Manual) Eosinophils # (Manual) PT INR APTT D-Dimer Heparin Anti-Xa Level ABG pH 7.501 H POC ABG pCO2 POC ABG pO2 126.5 H ABG pO2 ABG HCO3 ABG O2 Saturation ABG Base Excess ABG Hemoglobin 10.3 L ABG Oxyhemoglobin ABG Sodium ABG Potassium ABG Chloride ABG Glucose 220 H Oxyhemoglobin Sodium Potassium Chloride Carbon Dioxide BUN Creatinine Glucose POC Glucose 117 H 121 H Lactic Acid Calcium Magnesium Ferritin Total Bilirubin Direct Bilirubin AST ALT Alkaline Phosphatase Lactate Dehydrogenase C-Reactive Protein Total Protein Albumin Triglycerides Lipase Arterial Blood Glucose 220 H Arterial Blood Ionized Calcium Urine WBC (Auto) Coronavirus (PCR) SARS-CoV-2 IgG Ab Crossmatch 06/10/20 06/10/20 06/10/20 05:30 09:38 12:03 WBC RBC Hgb Hct MCV MCH MCHC RDW Lymph % (Auto) Lymph # (Auto) [place] # (Auto) Baso # (Auto) Seg Neutrophils % Seg Neuts % (Manual) Lymphocytes % (Manual) Nucleated RBC % Seg Neutrophils # Seg Neutrophils # Man Lymphocytes # (Manual) Monocytes # (Manual) Eosinophils # (Manual) PT INR APTT D-Dimer Heparin Anti-Xa Level ABG pH POC ABG pCO2 POC ABG pO2 ABG pO2 ABG HCO3 ABG O2 Saturation ABG Base Excess ABG Hemoglobin ABG Oxyhemoglobin ABG Sodium ABG Potassium ABG Chloride ABG Glucose Oxyhemoglobin Sodium Potassium Chloride Carbon Dioxide BUN Creatinine Glucose POC Glucose 181 H 204 H Lactic Acid Calcium Magnesium Ferritin Total Bilirubin Direct Bilirubin AST ALT Alkaline Phosphatase Lactate Dehydrogenase C-Reactive Protein Total Protein Albumin Triglycerides 738 H Lipase Arterial Blood Glucose Arterial Blood Ionized Calcium Urine WBC (Auto) Coronavirus (PCR) SARS-CoV-2 IgG Ab Crossmatch 06/10/20 06/11/20 06/11/20 17:17 00:04 04:38 WBC RBC Hgb Hct MCV MCH MCHC RDW Lymph % (Auto) Lymph # (Auto) [place] # (Auto) Baso # (Auto) Seg Neutrophils % Seg Neuts % (Manual) Lymphocytes % (Manual) Nucleated RBC % Seg Neutrophils # Seg Neutrophils # Man Lymphocytes # (Manual) Monocytes # (Manual) Eosinophils # (Manual) PT INR APTT D-Dimer Heparin Anti-Xa Level ABG pH 7.479 H POC ABG pCO2 POC ABG pO2 76.7 L ABG pO2 ABG HCO3 ABG O2 Saturation ABG Base Excess ABG Hemoglobin 9.8 L ABG Oxyhemoglobin ABG Sodium 135.8 L ABG Potassium ABG Chloride ABG Glucose 238 H Oxyhemoglobin Sodium Potassium Chloride Carbon Dioxide BUN Creatinine Glucose POC Glucose 156 H 178 H Lactic Acid Calcium Magnesium Ferritin Total Bilirubin Direct Bilirubin AST ALT Alkaline Phosphatase Lactate Dehydrogenase C-Reactive Protein Total Protein Albumin Triglycerides Lipase Arterial Blood Glucose 238 H Arterial Blood Ionized Calcium Urine WBC (Auto) Coronavirus (PCR) SARS-CoV-2 IgG Ab Crossmatch 06/11/20 06/11/20 06/11/20 05:21 06:52 11:50 WBC RBC Hgb Hct MCV MCH MCHC RDW Lymph % (Auto) Lymph # (Auto) [place] # (Auto) Baso # (Auto) Seg Neutrophils % Seg Neuts % (Manual) Lymphocytes % (Manual) Nucleated RBC % Seg Neutrophils # Seg Neutrophils # Man Lymphocytes # (Manual) Monocytes # (Manual) Eosinophils # (Manual) PT INR APTT D-Dimer Heparin Anti-Xa Level ABG pH POC ABG pCO2 POC ABG pO2 ABG pO2 ABG HCO3 ABG O2 Saturation ABG Base Excess ABG Hemoglobin ABG Oxyhemoglobin ABG Sodium ABG Potassium ABG Chloride ABG Glucose Oxyhemoglobin Sodium Potassium Chloride Carbon Dioxide BUN Creatinine Glucose POC Glucose 215 H 187 H Lactic Acid Calcium Magnesium Ferritin Total Bilirubin Direct Bilirubin AST ALT Alkaline Phosphatase Lactate Dehydrogenase C-Reactive Protein Total Protein Albumin Triglycerides 331 H Lipase Arterial Blood Glucose Arterial Blood Ionized Calcium Urine WBC (Auto) Coronavirus (PCR) SARS-CoV-2 IgG Ab Crossmatch 06/11/20 06/11/20 06/12/20 17:49 23:35 04:52 WBC RBC Hgb Hct MCV MCH MCHC RDW Lymph % (Auto) Lymph # (Auto) [place] # (Auto) Baso # (Auto) Seg Neutrophils % Seg Neuts % (Manual) Lymphocytes % (Manual) Nucleated RBC % Seg Neutrophils # Seg Neutrophils # Man Lymphocytes # (Manual) Monocytes # (Manual) Eosinophils # (Manual) PT INR APTT D-Dimer Heparin Anti-Xa Level ABG pH 7.486 H POC ABG pCO2 POC ABG pO2 ABG pO2 ABG HCO3 ABG O2 Saturation ABG Base Excess ABG Hemoglobin 9.4 L ABG Oxyhemoglobin ABG Sodium ABG Potassium 3.2 L ABG Chloride ABG Glucose 209 H Oxyhemoglobin Sodium Potassium Chloride Carbon Dioxide BUN Creatinine Glucose POC Glucose 211 H 200 H Lactic Acid Calcium Magnesium Ferritin Total Bilirubin Direct Bilirubin AST ALT Alkaline Phosphatase Lactate Dehydrogenase C-Reactive Protein Total Protein Albumin Triglycerides Lipase Arterial Blood Glucose 209 H Arterial Blood Ionized Calcium Urine WBC (Auto) Coronavirus (PCR) SARS-CoV-2 IgG Ab Crossmatch 06/12/20 06/12/20 06/12/20 05:13 11:47 18:33 WBC RBC Hgb Hct MCV MCH MCHC RDW Lymph % (Auto) Lymph # (Auto) [place] # (Auto) Baso # (Auto) Seg Neutrophils % Seg Neuts % (Manual) Lymphocytes % (Manual) Nucleated RBC % Seg Neutrophils # Seg Neutrophils # Man Lymphocytes # (Manual) Monocytes # (Manual) Eosinophils # (Manual) PT INR APTT D-Dimer Heparin Anti-Xa Level ABG pH POC ABG pCO2 POC ABG pO2 ABG pO2 ABG HCO3 ABG O2 Saturation ABG Base Excess ABG Hemoglobin ABG Oxyhemoglobin ABG Sodium ABG Potassium ABG Chloride ABG Glucose Oxyhemoglobin Sodium Potassium Chloride Carbon Dioxide BUN Creatinine Glucose POC Glucose 174 H 214 H 194 H Lactic Acid Calcium Magnesium Ferritin Total Bilirubin Direct Bilirubin AST ALT Alkaline Phosphatase Lactate Dehydrogenase C-Reactive Protein Total Protein Albumin Triglycerides Lipase Arterial Blood Glucose Arterial Blood Ionized Calcium Urine WBC (Auto) Coronavirus (PCR) SARS-CoV-2 IgG Ab Crossmatch 06/12/20 06/13/20 06/13/20 23:49 05:41 12:30 WBC RBC Hgb Hct MCV MCH MCHC RDW Lymph % (Auto) Lymph # (Auto) [place] # (Auto) Baso # (Auto) Seg Neutrophils % Seg Neuts % (Manual) Lymphocytes % (Manual) Nucleated RBC % Seg Neutrophils # Seg Neutrophils # Man Lymphocytes # (Manual) Monocytes # (Manual) Eosinophils # (Manual) PT INR APTT D-Dimer Heparin Anti-Xa Level ABG pH POC ABG pCO2 POC ABG pO2 ABG pO2 ABG HCO3 ABG O2 Saturation ABG Base Excess ABG Hemoglobin ABG Oxyhemoglobin ABG Sodium ABG Potassium ABG Chloride ABG Glucose Oxyhemoglobin Sodium Potassium Chloride Carbon Dioxide BUN Creatinine Glucose POC Glucose 160 H 150 H 181 H Lactic Acid Calcium Magnesium Ferritin Total Bilirubin Direct Bilirubin AST ALT Alkaline Phosphatase Lactate Dehydrogenase C-Reactive Protein Total Protein Albumin Triglycerides Lipase Arterial Blood Glucose Arterial Blood Ionized Calcium Urine WBC (Auto) Coronavirus (PCR) SARS-CoV-2 IgG Ab Crossmatch 06/13/20 06/13/20 06/13/20 14:14 17:48 23:27 WBC 12.8 H RBC 2.33 L Hgb 8.0 L Hct 23.3 L MCV 100 H MCH 34 H MCHC RDW 15.7 H Lymph % (Auto) Lymph # (Auto) [place] # (Auto) Baso # (Auto) Seg Neutrophils % Seg Neuts % (Manual) 85.0 H Lymphocytes % (Manual) 10.0 L Nucleated RBC % Seg Neutrophils # Seg Neutrophils # Man 10.9 H Lymphocytes # (Manual) Monocytes # (Manual) Eosinophils # (Manual) PT INR APTT D-Dimer Heparin Anti-Xa Level ABG pH POC ABG pCO2 POC ABG pO2 ABG pO2 ABG HCO3 ABG O2 Saturation ABG Base Excess ABG Hemoglobin ABG Oxyhemoglobin ABG Sodium ABG Potassium ABG Chloride ABG Glucose Oxyhemoglobin Sodium Potassium Chloride Carbon Dioxide BUN Creatinine Glucose POC Glucose 173 H 154 H Lactic Acid Calcium Magnesium Ferritin Total Bilirubin Direct Bilirubin AST ALT Alkaline Phosphatase Lactate Dehydrogenase C-Reactive Protein Total Protein Albumin Triglycerides Lipase Arterial Blood Glucose Arterial Blood Ionized Calcium Urine WBC (Auto) Coronavirus (PCR) SARS-CoV-2 IgG Ab Crossmatch 06/14/20 06/14/20 06/14/20 03:58 05:21 07:15 WBC 26.2 H RBC 2.97 L Hgb 9.7 L Hct 29.9 L D MCV 101 H MCH 33 H MCHC RDW 15.3 H Lymph % (Auto) Lymph # (Auto) [place] # (Auto) Baso # (Auto) Seg Neutrophils % Seg Neuts % (Manual) 79.0 H Lymphocytes % (Manual) 5.0 L Nucleated RBC % 3.0 H Seg Neutrophils # Seg Neutrophils # Man 20.7 H Lymphocytes # (Manual) Monocytes # (Manual) 1.3 H Eosinophils # (Manual) PT INR APTT D-Dimer Heparin Anti-Xa Level ABG pH POC ABG pCO2 51.5 H POC ABG pO2 70.0 L ABG pO2 ABG HCO3 ABG O2 Saturation ABG Base Excess ABG Hemoglobin 10.1 L ABG Oxyhemoglobin ABG Sodium 131.5 L ABG Potassium 3.1 L ABG Chloride 93.0 L ABG Glucose 188 H Oxyhemoglobin Sodium Potassium Chloride Carbon Dioxide BUN Creatinine Glucose POC Glucose 147 H Lactic Acid Calcium Magnesium Ferritin Total Bilirubin Direct Bilirubin AST ALT Alkaline Phosphatase Lactate Dehydrogenase C-Reactive Protein Total Protein Albumin Triglycerides Lipase Arterial Blood Glucose 188 H Arterial Blood Ionized Calcium Urine WBC (Auto) Coronavirus (PCR) SARS-CoV-2 IgG Ab Crossmatch 06/14/20 06/14/20 06/14/20 07:15 11:30 11:50 WBC RBC Hgb Hct MCV MCH MCHC RDW Lymph % (Auto) Lymph # (Auto) [place] # (Auto) Baso # (Auto) Seg Neutrophils % Seg Neuts % (Manual) Lymphocytes % (Manual) Nucleated RBC % Seg Neutrophils # Seg Neutrophils # Man Lymphocytes # (Manual) Monocytes # (Manual) Eosinophils # (Manual) PT INR APTT D-Dimer Heparin Anti-Xa Level ABG pH POC ABG pCO2 POC ABG pO2 ABG pO2 ABG HCO3 ABG O2 Saturation ABG Base Excess ABG Hemoglobin ABG Oxyhemoglobin ABG Sodium ABG Potassium ABG Chloride ABG Glucose Oxyhemoglobin Sodium 135 L Potassium 3.5 L Chloride 90.4 L Carbon Dioxide 38 H BUN Creatinine 0.5 L Glucose 190 H POC Glucose 176 H Lactic Acid Calcium Magnesium Ferritin 1496.0 H Total Bilirubin Direct Bilirubin AST ALT 81 H Alkaline Phosphatase Lactate Dehydrogenase C-Reactive Protein Total Protein Albumin 2.9 L Triglycerides Lipase Arterial Blood Glucose Arterial Blood Ionized Calcium Urine WBC (Auto) Coronavirus (PCR) SARS-CoV-2 IgG Ab Crossmatch 06/14/20 06/15/20 06/15/20 23:31 04:00 05:00 WBC RBC Hgb Hct MCV MCH MCHC RDW Lymph % (Auto) Lymph # (Auto) [place] # (Auto) Baso # (Auto) Seg Neutrophils % Seg Neuts % (Manual) Lymphocytes % (Manual) Nucleated RBC % Seg Neutrophils # Seg Neutrophils # Man Lymphocytes # (Manual) Monocytes # (Manual) Eosinophils # (Manual) PT INR APTT D-Dimer Heparin Anti-Xa Level ABG pH POC ABG pCO2 POC ABG pO2 ABG pO2 ABG HCO3 ABG O2 Saturation ABG Base Excess ABG Hemoglobin ABG Oxyhemoglobin ABG Sodium ABG Potassium ABG Chloride ABG Glucose Oxyhemoglobin Sodium 133 L Potassium Chloride 91.1 L Carbon Dioxide 34 H BUN Creatinine 0.4 L Glucose 159 H POC Glucose 200 H Lactic Acid Calcium Magnesium Ferritin Total Bilirubin 2.00 H Direct Bilirubin AST 47 H ALT 77 H Alkaline Phosphatase Lactate Dehydrogenase C-Reactive Protein Total Protein Albumin 2.6 L Triglycerides 152 H Lipase Arterial Blood Glucose Arterial Blood Ionized Calcium Urine WBC (Auto) Coronavirus (PCR) SARS-CoV-2 IgG Ab Crossmatch 06/15/20 06/15/20 06/15/20 05:35 06:27 11:38 WBC RBC Hgb Hct MCV MCH MCHC RDW Lymph % (Auto) Lymph # (Auto) [place] # (Auto) Baso # (Auto) Seg Neutrophils % Seg Neuts % (Manual) Lymphocytes % (Manual) Nucleated RBC % Seg Neutrophils # Seg Neutrophils # Man Lymphocytes # (Manual) Monocytes # (Manual) Eosinophils # (Manual) PT INR APTT D-Dimer Heparin Anti-Xa Level ABG pH POC ABG pCO2 61.0 H POC ABG pO2 67.9 L ABG pO2 ABG HCO3 ABG O2 Saturation ABG Base Excess ABG Hemoglobin 10.4 L ABG Oxyhemoglobin ABG Sodium 132.7 L ABG Potassium 3.3 L ABG Chloride 92.0 L ABG Glucose 158 H Oxyhemoglobin Sodium Potassium Chloride Carbon Dioxide BUN Creatinine Glucose POC Glucose 148 H 197 H Lactic Acid Calcium Magnesium Ferritin Total Bilirubin Direct Bilirubin AST ALT Alkaline Phosphatase Lactate Dehydrogenase C-Reactive Protein Total Protein Albumin Triglycerides Lipase Arterial Blood Glucose 158 H Arterial Blood Ionized Calcium Urine WBC (Auto) Coronavirus (PCR) SARS-CoV-2 IgG Ab Crossmatch 06/15/20 06/15/20 06/16/20 17:29 Unknown 00:01 WBC 20.7 H RBC 2.57 L Hgb 8.9 L Hct 25.8 L MCV 101 H MCH 35 H MCHC 35 H RDW 16.0 H Lymph % (Auto) Lymph # (Auto) [place] # (Auto) Baso # (Auto) Seg Neutrophils % Seg Neuts % (Manual) 83.0 H Lymphocytes % (Manual) 8.0 L Nucleated RBC % Seg Neutrophils # Seg Neutrophils # Man 17.2 H Lymphocytes # (Manual) Monocytes # (Manual) 1.2 H Eosinophils # (Manual) PT INR APTT D-Dimer Heparin Anti-Xa Level ABG pH POC ABG pCO2 POC ABG pO2 ABG pO2 ABG HCO3 ABG O2 Saturation ABG Base Excess ABG Hemoglobin ABG Oxyhemoglobin ABG Sodium ABG Potassium ABG Chloride ABG Glucose Oxyhemoglobin Sodium Potassium Chloride Carbon Dioxide BUN Creatinine Glucose POC Glucose 231 H 257 H Lactic Acid Calcium Magnesium Ferritin Total Bilirubin Direct Bilirubin AST ALT Alkaline Phosphatase Lactate Dehydrogenase C-Reactive Protein Total Protein Albumin Triglycerides Lipase Arterial Blood Glucose Arterial Blood Ionized Calcium Urine WBC (Auto) Coronavirus (PCR) SARS-CoV-2 IgG Ab Crossmatch 06/16/20 06/16/20 06/16/20 04:00 04:00 05:22 WBC 13.8 H RBC 2.03 L Hgb 7.6 L Hct 20.7 L MCV 102 H MCH 37 H MCHC 37 H RDW 16.2 H Lymph % (Auto) 4.4 L Lymph # (Auto) 0.6 L [place] # (Auto) Baso # (Auto) Seg Neutrophils % Seg Neuts % (Manual) Lymphocytes % (Manual) Nucleated RBC % Seg Neutrophils # 12.7 H Seg Neutrophils # Man Lymphocytes # (Manual) Monocytes # (Manual) Eosinophils # (Manual) PT INR APTT D-Dimer Heparin Anti-Xa Level ABG pH POC ABG pCO2 POC ABG pO2 ABG pO2 ABG HCO3 ABG O2 Saturation ABG Base Excess ABG Hemoglobin ABG Oxyhemoglobin ABG Sodium ABG Potassium ABG Chloride ABG Glucose Oxyhemoglobin Sodium 130 L Potassium Chloride 88.9 L Carbon Dioxide 36 H BUN Creatinine 0.3 L Glucose 276 H POC Glucose 250 H Lactic Acid Calcium Magnesium Ferritin Total Bilirubin Direct Bilirubin AST ALT Alkaline Phosphatase Lactate Dehydrogenase C-Reactive Protein Total Protein Albumin Triglycerides Lipase Arterial Blood Glucose Arterial Blood Ionized Calcium Urine WBC (Auto) Coronavirus (PCR) SARS-CoV-2 IgG Ab Crossmatch 06/16/20 06/16/20 06/17/20 12:44 18:18 00:39 WBC RBC Hgb Hct MCV MCH MCHC RDW Lymph % (Auto) Lymph # (Auto) [place] # (Auto) Baso # (Auto) Seg Neutrophils % Seg Neuts % (Manual) Lymphocytes % (Manual) Nucleated RBC % Seg Neutrophils # Seg Neutrophils # Man Lymphocytes # (Manual) Monocytes # (Manual) Eosinophils # (Manual) PT INR APTT D-Dimer Heparin Anti-Xa Level ABG pH POC ABG pCO2 POC ABG pO2 ABG pO2 ABG HCO3 ABG O2 Saturation ABG Base Excess ABG Hemoglobin ABG Oxyhemoglobin ABG Sodium ABG Potassium ABG Chloride ABG Glucose Oxyhemoglobin Sodium Potassium Chloride Carbon Dioxide BUN Creatinine Glucose POC Glucose 279 H 239 H 247 H Lactic Acid Calcium Magnesium Ferritin Total Bilirubin Direct Bilirubin AST ALT Alkaline Phosphatase Lactate Dehydrogenase C-Reactive Protein Total Protein Albumin Triglycerides Lipase Arterial Blood Glucose Arterial Blood Ionized Calcium Urine WBC (Auto) Coronavirus (PCR) SARS-CoV-2 IgG Ab Crossmatch 06/17/20 06/17/20 06/17/20 03:40 04:08 10:54 WBC RBC Hgb Hct MCV MCH MCHC RDW Lymph % (Auto) Lymph # (Auto) [place] # (Auto) Baso # (Auto) Seg Neutrophils % Seg Neuts % (Manual) Lymphocytes % (Manual) Nucleated RBC % Seg Neutrophils # Seg Neutrophils # Man Lymphocytes # (Manual) Monocytes # (Manual) Eosinophils # (Manual) PT INR APTT D-Dimer Heparin Anti-Xa Level ABG pH POC ABG pCO2 65.7 H POC ABG pO2 ABG pO2 ABG HCO3 ABG O2 Saturation ABG Base Excess ABG Hemoglobin 11.9 L ABG Oxyhemoglobin ABG Sodium ABG Potassium ABG Chloride 93.0 L ABG Glucose 244 H Oxyhemoglobin Sodium Potassium Chloride Carbon Dioxide BUN Creatinine Glucose POC Glucose 221 H 248 H Lactic Acid Calcium Magnesium Ferritin Total Bilirubin Direct Bilirubin AST ALT Alkaline Phosphatase Lactate Dehydrogenase C-Reactive Protein Total Protein Albumin Triglycerides Lipase Arterial Blood Glucose 244 H Arterial Blood Ionized Calcium Urine WBC (Auto) Coronavirus (PCR) SARS-CoV-2 IgG Ab Crossmatch 06/17/20 06/17/20 06/17/20 17:47 23:11 23:29 WBC RBC Hgb Hct MCV MCH MCHC RDW Lymph % (Auto) Lymph # (Auto) [place] # (Auto) Baso # (Auto) Seg Neutrophils % Seg Neuts % (Manual) Lymphocytes % (Manual) Nucleated RBC % Seg Neutrophils # Seg Neutrophils # Man Lymphocytes # (Manual) Monocytes # (Manual) Eosinophils # (Manual) PT INR APTT D-Dimer Heparin Anti-Xa Level ABG pH POC ABG pCO2 85.2 H POC ABG pO2 48.4 L ABG pO2 ABG HCO3 ABG O2 Saturation ABG Base Excess ABG Hemoglobin 8.0 L ABG Oxyhemoglobin ABG Sodium ABG Potassium ABG Chloride 95.0 L ABG Glucose 292 H Oxyhemoglobin Sodium Potassium Chloride Carbon Dioxide BUN Creatinine Glucose POC Glucose 245 H 252 H Lactic Acid Calcium Magnesium Ferritin Total Bilirubin Direct Bilirubin AST ALT Alkaline Phosphatase Lactate Dehydrogenase C-Reactive Protein Total Protein Albumin Triglycerides Lipase Arterial Blood Glucose 292 H Arterial Blood Ionized Calcium Urine WBC (Auto) Coronavirus (PCR) SARS-CoV-2 IgG Ab Crossmatch 06/18/20 06/18/20 06/18/20 03:14 05:34 11:47 WBC RBC Hgb Hct MCV MCH MCHC RDW Lymph % (Auto) Lymph # (Auto) [place] # (Auto) Baso # (Auto) Seg Neutrophils % Seg Neuts % (Manual) Lymphocytes % (Manual) Nucleated RBC % Seg Neutrophils # Seg Neutrophils # Man Lymphocytes # (Manual) Monocytes # (Manual) Eosinophils # (Manual) PT INR APTT D-Dimer Heparin Anti-Xa Level ABG pH POC ABG pCO2 65.4 H POC ABG pO2 160.7 H ABG pO2 ABG HCO3 ABG O2 Saturation ABG Base Excess ABG Hemoglobin 7.8 L ABG Oxyhemoglobin ABG Sodium ABG Potassium ABG Chloride 95.0 L ABG Glucose 251 H Oxyhemoglobin Sodium Potassium Chloride Carbon Dioxide BUN Creatinine Glucose POC Glucose 243 H 263 H Lactic Acid Calcium Magnesium Ferritin Total Bilirubin Direct Bilirubin AST ALT Alkaline Phosphatase Lactate Dehydrogenase C-Reactive Protein Total Protein Albumin Triglycerides Lipase Arterial Blood Glucose 251 H Arterial Blood Ionized Calcium Urine WBC (Auto) Coronavirus (PCR) SARS-CoV-2 IgG Ab Crossmatch 06/18/20 06/18/20 06/19/20 17:31 23:33 04:32 WBC RBC Hgb Hct MCV MCH MCHC RDW Lymph % (Auto) Lymph # (Auto) [place] # (Auto) Baso # (Auto) Seg Neutrophils % Seg Neuts % (Manual) Lymphocytes % (Manual) Nucleated RBC % Seg Neutrophils # Seg Neutrophils # Man Lymphocytes # (Manual) Monocytes # (Manual) Eosinophils # (Manual) PT INR APTT D-Dimer Heparin Anti-Xa Level ABG pH POC ABG pCO2 83.1 H POC ABG pO2 65.8 L ABG pO2 ABG HCO3 ABG O2 Saturation ABG Base Excess ABG Hemoglobin 8.9 L ABG Oxyhemoglobin ABG Sodium ABG Potassium ABG Chloride 96.0 L ABG Glucose 297 H Oxyhemoglobin Sodium Potassium Chloride Carbon Dioxide BUN Creatinine Glucose POC Glucose 286 H 238 H Lactic Acid Calcium Magnesium Ferritin Total Bilirubin Direct Bilirubin AST ALT Alkaline Phosphatase Lactate Dehydrogenase C-Reactive Protein Total Protein Albumin Triglycerides Lipase Arterial Blood Glucose 297 H Arterial Blood Ionized Calcium Urine WBC (Auto) Coronavirus (PCR) SARS-CoV-2 IgG Ab Crossmatch 06/19/20 06/19/20 06/19/20 05:55 11:20 17:12 WBC RBC Hgb Hct MCV MCH MCHC RDW Lymph % (Auto) Lymph # (Auto) [place] # (Auto) Baso # (Auto) Seg Neutrophils % Seg Neuts % (Manual) Lymphocytes % (Manual) Nucleated RBC % Seg Neutrophils # Seg Neutrophils # Man Lymphocytes # (Manual) Monocytes # (Manual) Eosinophils # (Manual) PT INR APTT D-Dimer Heparin Anti-Xa Level ABG pH POC ABG pCO2 POC ABG pO2 ABG pO2 ABG HCO3 ABG O2 Saturation ABG Base Excess ABG Hemoglobin ABG Oxyhemoglobin ABG Sodium ABG Potassium ABG Chloride ABG Glucose Oxyhemoglobin Sodium Potassium Chloride Carbon Dioxide BUN Creatinine Glucose POC Glucose 274 H 282 H 298 H Lactic Acid Calcium Magnesium Ferritin Total Bilirubin Direct Bilirubin AST ALT Alkaline Phosphatase Lactate Dehydrogenase C-Reactive Protein Total Protein Albumin Triglycerides Lipase Arterial Blood Glucose Arterial Blood Ionized Calcium Urine WBC (Auto) Coronavirus (PCR) SARS-CoV-2 IgG Ab Crossmatch 06/19/20 06/20/20 06/20/20 23:08 03:33 06:01 WBC RBC Hgb Hct MCV MCH MCHC RDW Lymph % (Auto) Lymph # (Auto) [place] # (Auto) Baso # (Auto) Seg Neutrophils % Seg Neuts % (Manual) Lymphocytes % (Manual) Nucleated RBC % Seg Neutrophils # Seg Neutrophils # Man Lymphocytes # (Manual) Monocytes # (Manual) Eosinophils # (Manual) PT INR APTT D-Dimer Heparin Anti-Xa Level ABG pH POC ABG pCO2 POC ABG pO2 ABG pO2 69.9 L ABG HCO3 50.8 H ABG O2 Saturation ABG Base Excess 24.2 H ABG Hemoglobin 5.8 L ABG Oxyhemoglobin ABG Sodium ABG Potassium ABG Chloride ABG Glucose Oxyhemoglobin Sodium Potassium Chloride Carbon Dioxide BUN Creatinine Glucose POC Glucose 293 H 182 H Lactic Acid Calcium Magnesium Ferritin Total Bilirubin Direct Bilirubin AST ALT Alkaline Phosphatase Lactate Dehydrogenase C-Reactive Protein Total Protein Albumin Triglycerides Lipase Arterial Blood Glucose Arterial Blood Ionized Calcium Urine WBC (Auto) Coronavirus (PCR) SARS-CoV-2 IgG Ab Crossmatch 06/20/20 06/20/20 06/20/20 11:47 17:46 23:37 WBC RBC Hgb Hct MCV MCH MCHC RDW Lymph % (Auto) Lymph # (Auto) [place] # (Auto) Baso # (Auto) Seg Neutrophils % Seg Neuts % (Manual) Lymphocytes % (Manual) Nucleated RBC % Seg Neutrophils # Seg Neutrophils # Man Lymphocytes # (Manual) Monocytes # (Manual) Eosinophils # (Manual) PT INR APTT D-Dimer Heparin Anti-Xa Level ABG pH POC ABG pCO2 POC ABG pO2 ABG pO2 ABG HCO3 ABG O2 Saturation ABG Base Excess ABG Hemoglobin ABG Oxyhemoglobin ABG Sodium ABG Potassium ABG Chloride ABG Glucose Oxyhemoglobin Sodium Potassium Chloride Carbon Dioxide BUN Creatinine Glucose POC Glucose 170 H 215 H 256 H Lactic Acid Calcium Magnesium Ferritin Total Bilirubin Direct Bilirubin AST ALT Alkaline Phosphatase Lactate Dehydrogenase C-Reactive Protein Total Protein Albumin Triglycerides Lipase Arterial Blood Glucose Arterial Blood Ionized Calcium Urine WBC (Auto) Coronavirus (PCR) SARS-CoV-2 IgG Ab Crossmatch 06/21/20 06/21/20 06/21/20 04:00 05:14 05:51 WBC RBC Hgb Hct MCV MCH MCHC RDW Lymph % (Auto) Lymph # (Auto) [place] # (Auto) Baso # (Auto) Seg Neutrophils % Seg Neuts % (Manual) Lymphocytes % (Manual) Nucleated RBC % Seg Neutrophils # Seg Neutrophils # Man Lymphocytes # (Manual) Monocytes # (Manual) Eosinophils # (Manual) PT INR APTT D-Dimer Heparin Anti-Xa Level ABG pH 7.474 H POC ABG pCO2 POC ABG pO2 ABG pO2 ABG HCO3 52.1 H ABG O2 Saturation ABG Base Excess 23.3 H ABG Hemoglobin 5.3 L ABG Oxyhemoglobin ABG Sodium ABG Potassium ABG Chloride ABG Glucose Oxyhemoglobin 93.8 L Sodium Potassium Chloride Carbon Dioxide BUN Creatinine Glucose POC Glucose 122 H 129 H Lactic Acid Calcium Magnesium Ferritin Total Bilirubin Direct Bilirubin AST ALT Alkaline Phosphatase Lactate Dehydrogenase C-Reactive Protein Total Protein Albumin Triglycerides Lipase Arterial Blood Glucose Arterial Blood Ionized Calcium Urine WBC (Auto) Coronavirus (PCR) SARS-CoV-2 IgG Ab Crossmatch 06/21/20 06/21/20 06/21/20 11:00 11:00 11:42 WBC 14.2 H RBC 1.85 L Hgb 6.2 L Hct 19.5 L* MCV 105 H MCH 34 H MCHC RDW 18.0 H Lymph % (Auto) Lymph # (Auto) [place] # (Auto) Baso # (Auto) Seg Neutrophils % Seg Neuts % (Manual) Lymphocytes % (Manual) Nucleated RBC % Seg Neutrophils # Seg Neutrophils # Man Lymphocytes # (Manual) Monocytes # (Manual) Eosinophils # (Manual) PT INR APTT D-Dimer Heparin Anti-Xa Level ABG pH POC ABG pCO2 POC ABG pO2 ABG pO2 ABG HCO3 ABG O2 Saturation ABG Base Excess ABG Hemoglobin ABG Oxyhemoglobin ABG Sodium ABG Potassium ABG Chloride ABG Glucose Oxyhemoglobin Sodium 147 H Potassium Chloride Carbon Dioxide 51 H* BUN 31 H Creatinine 0.5 L Glucose 224 H POC Glucose 217 H Lactic Acid Calcium Magnesium Ferritin Total Bilirubin Direct Bilirubin AST ALT Alkaline Phosphatase Lactate Dehydrogenase C-Reactive Protein Total Protein Albumin Triglycerides Lipase Arterial Blood Glucose Arterial Blood Ionized Calcium Urine WBC (Auto) Coronavirus (PCR) SARS-CoV-2 IgG Ab Crossmatch 06/21/20 06/21/20 06/21/20 14:18 14:30 18:36 WBC RBC Hgb Hct MCV MCH MCHC RDW Lymph % (Auto) Lymph # (Auto) [place] # (Auto) Baso # (Auto) Seg Neutrophils % Seg Neuts % (Manual) Lymphocytes % (Manual) Nucleated RBC % Seg Neutrophils # Seg Neutrophils # Man Lymphocytes # (Manual) Monocytes # (Manual) Eosinophils # (Manual) PT 15.1 H INR 1.19 H APTT D-Dimer Heparin Anti-Xa Level ABG pH POC ABG pCO2 POC ABG pO2 ABG pO2 ABG HCO3 ABG O2 Saturation ABG Base Excess ABG Hemoglobin ABG Oxyhemoglobin ABG Sodium ABG Potassium ABG Chloride ABG Glucose Oxyhemoglobin Sodium Potassium Chloride Carbon Dioxide BUN Creatinine Glucose POC Glucose 185 H Lactic Acid Calcium Magnesium Ferritin Total Bilirubin Direct Bilirubin AST ALT Alkaline Phosphatase Lactate Dehydrogenase C-Reactive Protein Total Protein Albumin Triglycerides Lipase Arterial Blood Glucose Arterial Blood Ionized Calcium Urine WBC (Auto) Coronavirus (PCR) SARS-CoV-2 IgG Ab Crossmatch See Detail 06/21/20 06/22/20 06/22/20 21:14 03:50 04:00 WBC RBC Hgb Hct MCV MCH MCHC RDW Lymph % (Auto) Lymph # (Auto) [place] # (Auto) Baso # (Auto) Seg Neutrophils % Seg Neuts % (Manual) Lymphocytes % (Manual) Nucleated RBC % Seg Neutrophils # Seg Neutrophils # Man Lymphocytes # (Manual) Monocytes # (Manual) Eosinophils # (Manual) PT INR APTT D-Dimer Heparin Anti-Xa Level ABG pH 7.451 H POC ABG pCO2 POC ABG pO2 ABG pO2 ABG HCO3 47.5 H ABG O2 Saturation ABG Base Excess 22.0 H ABG Hemoglobin < 5.1 L ABG Oxyhemoglobin ABG Sodium ABG Potassium ABG Chloride ABG Glucose Oxyhemoglobin 94.1 L Sodium 149 H Potassium 3.5 L Chloride Carbon Dioxide 42 H* D BUN 34 H Creatinine 0.4 L Glucose 219 H POC Glucose 250 H Lactic Acid Calcium Magnesium Ferritin Total Bilirubin Direct Bilirubin AST ALT Alkaline Phosphatase Lactate Dehydrogenase C-Reactive Protein Total Protein Albumin Triglycerides Lipase Arterial Blood Glucose Arterial Blood Ionized Calcium Urine WBC (Auto) Coronavirus (PCR) SARS-CoV-2 IgG Ab Crossmatch 06/22/20 06/22/20 06/22/20 12:16 14:29 17:56 WBC RBC Hgb Hct MCV MCH MCHC RDW Lymph % (Auto) Lymph # (Auto) [place] # (Auto) Baso # (Auto) Seg Neutrophils % Seg Neuts % (Manual) Lymphocytes % (Manual) Nucleated RBC % Seg Neutrophils # Seg Neutrophils # Man Lymphocytes # (Manual) Monocytes # (Manual) Eosinophils # (Manual) PT 11.8 L INR APTT 23.5 L D-Dimer Heparin Anti-Xa Level ABG pH POC ABG pCO2 POC ABG pO2 ABG pO2 ABG HCO3 ABG O2 Saturation ABG Base Excess ABG Hemoglobin ABG Oxyhemoglobin ABG Sodium ABG Potassium ABG Chloride ABG Glucose Oxyhemoglobin Sodium Potassium Chloride Carbon Dioxide BUN Creatinine Glucose POC Glucose 215 H 215 H Lactic Acid Calcium Magnesium Ferritin Total Bilirubin Direct Bilirubin AST ALT Alkaline Phosphatase Lactate Dehydrogenase C-Reactive Protein Total Protein Albumin Triglycerides Lipase Arterial Blood Glucose Arterial Blood Ionized Calcium Urine WBC (Auto) Coronavirus (PCR) SARS-CoV-2 IgG Ab Crossmatch 06/22/20 06/22/20 06/22/20 23:36 23:45 Unknown WBC 14.1 H RBC 2.70 L Hgb 8.9 L 8.9 L Hct 26.9 L 27.2 L D MCV 101 H MCH 33 H MCHC RDW 17.7 H Lymph % (Auto) Lymph # (Auto) [place] # (Auto) Baso # (Auto) Seg Neutrophils % Seg Neuts % (Manual) 92.0 H Lymphocytes % (Manual) 5.0 L Nucleated RBC % Seg Neutrophils # Seg Neutrophils # Man 13.0 H Lymphocytes # (Manual) 0.7 L Monocytes # (Manual) Eosinophils # (Manual) PT INR APTT D-Dimer Heparin Anti-Xa Level ABG pH POC ABG pCO2 POC ABG pO2 ABG pO2 ABG HCO3 ABG O2 Saturation ABG Base Excess ABG Hemoglobin ABG Oxyhemoglobin ABG Sodium ABG Potassium ABG Chloride ABG Glucose Oxyhemoglobin Sodium Potassium Chloride Carbon Dioxide BUN Creatinine Glucose POC Glucose 208 H Lactic Acid Calcium Magnesium Ferritin Total Bilirubin Direct Bilirubin AST ALT Alkaline Phosphatase Lactate Dehydrogenase C-Reactive Protein Total Protein Albumin Triglycerides Lipase Arterial Blood Glucose Arterial Blood Ionized Calcium Urine WBC (Auto) Coronavirus (PCR) SARS-CoV-2 IgG Ab Crossmatch 06/23/20 06/23/20 06/23/20 05:17 05:19 06:50 WBC RBC Hgb Hct MCV MCH MCHC RDW Lymph % (Auto) Lymph # (Auto) [place] # (Auto) Baso # (Auto) Seg Neutrophils % Seg Neuts % (Manual) Lymphocytes % (Manual) Nucleated RBC % Seg Neutrophils # Seg Neutrophils # Man Lymphocytes # (Manual) Monocytes # (Manual) Eosinophils # (Manual) PT INR APTT D-Dimer Heparin Anti-Xa Level ABG pH POC ABG pCO2 69.7 H POC ABG pO2 63.3 L ABG pO2 ABG HCO3 ABG O2 Saturation ABG Base Excess ABG Hemoglobin 10.1 L ABG Oxyhemoglobin ABG Sodium ABG Potassium 3.3 L ABG Chloride ABG Glucose 226 H Oxyhemoglobin Sodium Potassium 3.0 L Chloride Carbon Dioxide 41 H* BUN 26 H Creatinine 0.4 L Glucose 209 H POC Glucose 200 H Lactic Acid Calcium Magnesium Ferritin Total Bilirubin Direct Bilirubin AST ALT Alkaline Phosphatase Lactate Dehydrogenase C-Reactive Protein Total Protein Albumin 2.9 L Triglycerides Lipase Arterial Blood Glucose 226 H Arterial Blood Ionized Calcium Urine WBC (Auto) Coronavirus (PCR) SARS-CoV-2 IgG Ab Crossmatch 06/23/20 06/23/20 06/23/20 09:41 12:04 18:16 WBC RBC Hgb 9.1 L Hct 28.0 L MCV MCH MCHC RDW Lymph % (Auto) Lymph # (Auto) [place] # (Auto) Baso # (Auto) Seg Neutrophils % Seg Neuts % (Manual) Lymphocytes % (Manual) Nucleated RBC % Seg Neutrophils # Seg Neutrophils # Man Lymphocytes # (Manual) Monocytes # (Manual) Eosinophils # (Manual) PT INR APTT D-Dimer Heparin Anti-Xa Level ABG pH POC ABG pCO2 POC ABG pO2 ABG pO2 ABG HCO3 ABG O2 Saturation ABG Base Excess ABG Hemoglobin ABG Oxyhemoglobin ABG Sodium ABG Potassium ABG Chloride ABG Glucose Oxyhemoglobin Sodium Potassium Chloride Carbon Dioxide BUN Creatinine Glucose POC Glucose 146 H 162 H Lactic Acid Calcium Magnesium Ferritin Total Bilirubin Direct Bilirubin AST ALT Alkaline Phosphatase Lactate Dehydrogenase C-Reactive Protein Total Protein Albumin Triglycerides Lipase Arterial Blood Glucose Arterial Blood Ionized Calcium Urine WBC (Auto) Coronavirus (PCR) SARS-CoV-2 IgG Ab Crossmatch 06/23/20 06/23/20 06/24/20 23:24 23:41 02:39 WBC RBC Hgb 8.2 L 8.8 L Hct 24.9 L 26.8 L MCV MCH MCHC RDW Lymph % (Auto) Lymph # (Auto) [place] # (Auto) Baso # (Auto) Seg Neutrophils % Seg Neuts % (Manual) Lymphocytes % (Manual) Nucleated RBC % Seg Neutrophils # Seg Neutrophils # Man Lymphocytes # (Manual) Monocytes # (Manual) Eosinophils # (Manual) PT INR APTT D-Dimer Heparin Anti-Xa Level ABG pH POC ABG pCO2 POC ABG pO2 ABG pO2 ABG HCO3 ABG O2 Saturation ABG Base Excess ABG Hemoglobin ABG Oxyhemoglobin ABG Sodium ABG Potassium ABG Chloride ABG Glucose Oxyhemoglobin Sodium Potassium Chloride Carbon Dioxide BUN Creatinine Glucose POC Glucose 248 H Lactic Acid Calcium Magnesium Ferritin Total Bilirubin Direct Bilirubin AST ALT Alkaline Phosphatase Lactate Dehydrogenase C-Reactive Protein Total Protein Albumin Triglycerides Lipase Arterial Blood Glucose Arterial Blood Ionized Calcium Urine WBC (Auto) Coronavirus (PCR) SARS-CoV-2 IgG Ab Crossmatch 06/24/20 06/24/20 06/24/20 02:39 02:45 05:31 WBC RBC Hgb Hct MCV MCH MCHC RDW Lymph % (Auto) Lymph # (Auto) [place] # (Auto) Baso # (Auto) Seg Neutrophils % Seg Neuts % (Manual) Lymphocytes % (Manual) Nucleated RBC % Seg Neutrophils # Seg Neutrophils # Man Lymphocytes # (Manual) Monocytes # (Manual) Eosinophils # (Manual) PT INR APTT D-Dimer Heparin Anti-Xa Level ABG pH POC ABG pCO2 66.9 H POC ABG pO2 109.7 H ABG pO2 ABG HCO3 ABG O2 Saturation ABG Base Excess ABG Hemoglobin 9.7 L ABG Oxyhemoglobin ABG Sodium 135.0 L ABG Potassium ABG Chloride 97.0 L ABG Glucose 277 H Oxyhemoglobin Sodium 136 L Potassium Chloride 95.0 L Carbon Dioxide 34 H D BUN 24 H Creatinine 0.3 L Glucose 260 H POC Glucose 164 H Lactic Acid Calcium Magnesium Ferritin Total Bilirubin Direct Bilirubin AST ALT Alkaline Phosphatase Lactate Dehydrogenase C-Reactive Protein Total Protein 5.2 L Albumin 2.6 L Triglycerides Lipase Arterial Blood Glucose 277 H Arterial Blood Ionized Calcium Urine WBC (Auto) Coronavirus (PCR) SARS-CoV-2 IgG Ab Crossmatch 06/24/20 06/24/20 06/24/20 10:00 11:49 17:39 WBC RBC Hgb 8.9 L Hct 26.5 L MCV MCH MCHC RDW Lymph % (Auto) Lymph # (Auto) [place] # (Auto) Baso # (Auto) Seg Neutrophils % Seg Neuts % (Manual) Lymphocytes % (Manual) Nucleated RBC % Seg Neutrophils # Seg Neutrophils # Man Lymphocytes # (Manual) Monocytes # (Manual) Eosinophils # (Manual) PT INR APTT D-Dimer Heparin Anti-Xa Level ABG pH POC ABG pCO2 POC ABG pO2 ABG pO2 ABG HCO3 ABG O2 Saturation ABG Base Excess ABG Hemoglobin ABG Oxyhemoglobin ABG Sodium ABG Potassium ABG Chloride ABG Glucose Oxyhemoglobin Sodium Potassium Chloride Carbon Dioxide BUN Creatinine Glucose POC Glucose 198 H 223 H Lactic Acid Calcium Magnesium Ferritin Total Bilirubin Direct Bilirubin AST ALT Alkaline Phosphatase Lactate Dehydrogenase C-Reactive Protein Total Protein Albumin Triglycerides Lipase Arterial Blood Glucose Arterial Blood Ionized Calcium Urine WBC (Auto) Coronavirus (PCR) SARS-CoV-2 IgG Ab Crossmatch 06/24/20 06/25/20 06/25/20 23:56 02:16 04:08 WBC RBC Hgb Hct MCV MCH MCHC RDW Lymph % (Auto) Lymph # (Auto) [place] # (Auto) Baso # (Auto) Seg Neutrophils % Seg Neuts % (Manual) Lymphocytes % (Manual) Nucleated RBC % Seg Neutrophils # Seg Neutrophils # Man Lymphocytes # (Manual) Monocytes # (Manual) Eosinophils # (Manual) PT INR APTT D-Dimer Heparin Anti-Xa Level ABG pH 7.454 H POC ABG pCO2 56.9 H POC ABG pO2 61.0 L ABG pO2 ABG HCO3 ABG O2 Saturation ABG Base Excess ABG Hemoglobin ABG Oxyhemoglobin ABG Sodium 134.3 L ABG Potassium ABG Chloride 92.0 L ABG Glucose 246 H Oxyhemoglobin Sodium 134 L Potassium Chloride 89.7 L Carbon Dioxide 36 H BUN Creatinine 0.3 L Glucose 254 H POC Glucose 225 H Lactic Acid Calcium Magnesium Ferritin Total Bilirubin Direct Bilirubin AST ALT Alkaline Phosphatase Lactate Dehydrogenase C-Reactive Protein Total Protein Albumin 2.9 L Triglycerides Lipase Arterial Blood Glucose 246 H Arterial Blood Ionized Calcium Urine WBC (Auto) Coronavirus (PCR) SARS-CoV-2 IgG Ab Crossmatch 06/25/20 06/25/20 06/25/20 05:44 11:35 17:33 WBC RBC Hgb Hct MCV MCH MCHC RDW Lymph % (Auto) Lymph # (Auto) [place] # (Auto) Baso # (Auto) Seg Neutrophils % Seg Neuts % (Manual) Lymphocytes % (Manual) Nucleated RBC % Seg Neutrophils # Seg Neutrophils # Man Lymphocytes # (Manual) Monocytes # (Manual) Eosinophils # (Manual) PT INR APTT D-Dimer Heparin Anti-Xa Level ABG pH POC ABG pCO2 POC ABG pO2 ABG pO2 ABG HCO3 ABG O2 Saturation ABG Base Excess ABG Hemoglobin ABG Oxyhemoglobin ABG Sodium ABG Potassium ABG Chloride ABG Glucose Oxyhemoglobin Sodium Potassium Chloride Carbon Dioxide BUN Creatinine Glucose POC Glucose 170 H 175 H 229 H Lactic Acid Calcium Magnesium Ferritin Total Bilirubin Direct Bilirubin AST ALT Alkaline Phosphatase Lactate Dehydrogenase C-Reactive Protein Total Protein Albumin Triglycerides Lipase Arterial Blood Glucose Arterial Blood Ionized Calcium Urine WBC (Auto) Coronavirus (PCR) SARS-CoV-2 IgG Ab Crossmatch 06/25/20 06/26/20 06/26/20 23:55 02:17 02:17 WBC RBC Hgb 10.0 L Hct 30.4 L MCV MCH MCHC RDW Lymph % (Auto) Lymph # (Auto) [place] # (Auto) Baso # (Auto) Seg Neutrophils % Seg Neuts % (Manual) Lymphocytes % (Manual) Nucleated RBC % Seg Neutrophils # Seg Neutrophils # Man Lymphocytes # (Manual) Monocytes # (Manual) Eosinophils # (Manual) PT INR APTT D-Dimer Heparin Anti-Xa Level ABG pH POC ABG pCO2 POC ABG pO2 ABG pO2 ABG HCO3 ABG O2 Saturation ABG Base Excess ABG Hemoglobin ABG Oxyhemoglobin ABG Sodium ABG Potassium ABG Chloride ABG Glucose Oxyhemoglobin Sodium 136 L Potassium Chloride 90.1 L Carbon Dioxide 39 H BUN Creatinine 0.2 L Glucose 232 H POC Glucose 192 H Lactic Acid Calcium Magnesium Ferritin Total Bilirubin Direct Bilirubin AST ALT Alkaline Phosphatase Lactate Dehydrogenase C-Reactive Protein Total Protein 6.1 L Albumin 2.9 L Triglycerides Lipase Arterial Blood Glucose Arterial Blood Ionized Calcium Urine WBC (Auto) Coronavirus (PCR) SARS-CoV-2 IgG Ab Crossmatch 06/26/20 06/26/20 06/26/20 04:15 04:49 05:28 WBC RBC Hgb Hct MCV MCH MCHC RDW Lymph % (Auto) Lymph # (Auto) [place] # (Auto) Baso # (Auto) Seg Neutrophils % Seg Neuts % (Manual) Lymphocytes % (Manual) Nucleated RBC % Seg Neutrophils # Seg Neutrophils # Man Lymphocytes # (Manual) Monocytes # (Manual) Eosinophils # (Manual) PT INR APTT D-Dimer Heparin Anti-Xa Level ABG pH 7.453 H POC ABG pCO2 59.6 H POC ABG pO2 ABG pO2 ABG HCO3 ABG O2 Saturation ABG Base Excess ABG Hemoglobin 10.0 L ABG Oxyhemoglobin ABG Sodium 134.2 L ABG Potassium 3.3 L ABG Chloride 92.0 L ABG Glucose 305 H Oxyhemoglobin Sodium Potassium Chloride Carbon Dioxide BUN Creatinine Glucose POC Glucose 234 H Lactic Acid Calcium Magnesium Ferritin Total Bilirubin Direct Bilirubin AST ALT Alkaline Phosphatase Lactate Dehydrogenase C-Reactive Protein Total Protein Albumin Triglycerides 203 H Lipase Arterial Blood Glucose 305 H Arterial Blood Ionized Calcium Urine WBC (Auto) Coronavirus (PCR) SARS-CoV-2 IgG Ab Crossmatch 06/26/20 06/26/20 06/26/20 11:58 17:58 21:32 WBC RBC Hgb Hct MCV MCH MCHC RDW Lymph % (Auto) Lymph # (Auto) [place] # (Auto) Baso # (Auto) Seg Neutrophils % Seg Neuts % (Manual) Lymphocytes % (Manual) Nucleated RBC % Seg Neutrophils # Seg Neutrophils # Man Lymphocytes # (Manual) Monocytes # (Manual) Eosinophils # (Manual) PT INR APTT D-Dimer Heparin Anti-Xa Level ABG pH POC ABG pCO2 POC ABG pO2 ABG pO2 ABG HCO3 ABG O2 Saturation ABG Base Excess ABG Hemoglobin ABG Oxyhemoglobin ABG Sodium ABG Potassium ABG Chloride ABG Glucose Oxyhemoglobin Sodium Potassium Chloride Carbon Dioxide BUN Creatinine Glucose POC Glucose 198 H 193 H 191 H Lactic Acid Calcium Magnesium Ferritin Total Bilirubin Direct Bilirubin AST ALT Alkaline Phosphatase Lactate Dehydrogenase C-Reactive Protein Total Protein Albumin Triglycerides Lipase Arterial Blood Glucose Arterial Blood Ionized Calcium Urine WBC (Auto) Coronavirus (PCR) SARS-CoV-2 IgG Ab Crossmatch 06/26/20 06/27/20 06/27/20 23:40 04:35 05:32 WBC RBC Hgb Hct MCV MCH MCHC RDW Lymph % (Auto) Lymph # (Auto) [place] # (Auto) Baso # (Auto) Seg Neutrophils % Seg Neuts % (Manual) Lymphocytes % (Manual) Nucleated RBC % Seg Neutrophils # Seg Neutrophils # Man Lymphocytes # (Manual) Monocytes # (Manual) Eosinophils # (Manual) PT INR APTT D-Dimer Heparin Anti-Xa Level ABG pH 7.464 H POC ABG pCO2 60.8 H POC ABG pO2 ABG pO2 ABG HCO3 ABG O2 Saturation ABG Base Excess ABG Hemoglobin 10.1 L ABG Oxyhemoglobin ABG Sodium ABG Potassium 2.9 L ABG Chloride 92.0 L ABG Glucose 298 H Oxyhemoglobin Sodium Potassium Chloride Carbon Dioxide BUN Creatinine Glucose POC Glucose 241 H 211 H Lactic Acid Calcium Magnesium Ferritin Total Bilirubin Direct Bilirubin AST ALT Alkaline Phosphatase Lactate Dehydrogenase C-Reactive Protein Total Protein Albumin Triglycerides Lipase Arterial Blood Glucose 298 H Arterial Blood Ionized Calcium Urine WBC (Auto) Coronavirus (PCR) SARS-CoV-2 IgG Ab Crossmatch 06/27/20 06/27/20 06/27/20 12:37 18:08 20:52 WBC RBC Hgb Hct MCV MCH MCHC RDW Lymph % (Auto) Lymph # (Auto) [place] # (Auto) Baso # (Auto) Seg Neutrophils % Seg Neuts % (Manual) Lymphocytes % (Manual) Nucleated RBC % Seg Neutrophils # Seg Neutrophils # Man Lymphocytes # (Manual) Monocytes # (Manual) Eosinophils # (Manual) PT INR APTT D-Dimer Heparin Anti-Xa Level ABG pH POC ABG pCO2 POC ABG pO2 ABG pO2 ABG HCO3 ABG O2 Saturation ABG Base Excess ABG Hemoglobin ABG Oxyhemoglobin ABG Sodium ABG Potassium ABG Chloride ABG Glucose Oxyhemoglobin Sodium Potassium Chloride Carbon Dioxide BUN Creatinine Glucose POC Glucose 182 H 197 H 195 H Lactic Acid Calcium Magnesium Ferritin Total Bilirubin Direct Bilirubin AST ALT Alkaline Phosphatase Lactate Dehydrogenase C-Reactive Protein Total Protein Albumin Triglycerides Lipase Arterial Blood Glucose Arterial Blood Ionized Calcium Urine WBC (Auto) Coronavirus (PCR) SARS-CoV-2 IgG Ab Crossmatch 06/27/20 06/28/20 06/28/20 Unknown 04:17 04:50 WBC RBC Hgb Hct MCV MCH MCHC RDW Lymph % (Auto) Lymph # (Auto) [place] # (Auto) Baso # (Auto) Seg Neutrophils % Seg Neuts % (Manual) Lymphocytes % (Manual) Nucleated RBC % Seg Neutrophils # Seg Neutrophils # Man Lymphocytes # (Manual) Monocytes # (Manual) Eosinophils # (Manual) PT INR APTT D-Dimer Heparin Anti-Xa Level ABG pH POC ABG pCO2 58.6 H POC ABG pO2 60.1 L ABG pO2 ABG HCO3 ABG O2 Saturation ABG Base Excess ABG Hemoglobin 10.0 L ABG Oxyhemoglobin ABG Sodium 125.3 L ABG Potassium ABG Chloride 93.0 L ABG Glucose 308 H Oxyhemoglobin Sodium Potassium 2.9 L* Chloride 93.4 L Carbon Dioxide 42 H* BUN Creatinine 0.3 L Glucose 211 H POC Glucose 252 H Lactic Acid Calcium 8.1 L Magnesium Ferritin Total Bilirubin Direct Bilirubin AST ALT Alkaline Phosphatase Lactate Dehydrogenase C-Reactive Protein Total Protein 5.1 L Albumin 2.4 L Triglycerides Lipase Arterial Blood Glucose 308 H Arterial Blood Ionized Calcium Urine WBC (Auto) Coronavirus (PCR) SARS-CoV-2 IgG Ab Crossmatch 06/28/20 06/28/20 06/28/20 06:35 06:35 11:36 WBC 18.9 H RBC 2.85 L Hgb 9.5 L Hct 28.4 L MCV 100 H MCH 33 H MCHC RDW 17.3 H Lymph % (Auto) Lymph # (Auto) [place] # (Auto) Baso # (Auto) Seg Neutrophils % 88.6 H Seg Neuts % (Manual) 95.0 H Lymphocytes % (Manual) 1.0 L Nucleated RBC % Seg Neutrophils # 15.9 H Seg Neutrophils # Man 18.0 H Lymphocytes # (Manual) 0.2 L Monocytes # (Manual) Eosinophils # (Manual) PT INR APTT D-Dimer Heparin Anti-Xa Level ABG pH POC ABG pCO2 POC ABG pO2 ABG pO2 ABG HCO3 ABG O2 Saturation ABG Base Excess ABG Hemoglobin ABG Oxyhemoglobin ABG Sodium ABG Potassium ABG Chloride ABG Glucose Oxyhemoglobin Sodium Potassium Chloride 94.2 L Carbon Dioxide 38 H BUN Creatinine 0.3 L Glucose 228 H POC Glucose 243 H Lactic Acid Calcium Magnesium Ferritin Total Bilirubin Direct Bilirubin AST ALT Alkaline Phosphatase Lactate Dehydrogenase C-Reactive Protein Total Protein 6.1 L Albumin 2.7 L Triglycerides Lipase Arterial Blood Glucose Arterial Blood Ionized Calcium Urine WBC (Auto) Coronavirus (PCR) SARS-CoV-2 IgG Ab Crossmatch 06/28/20 06/28/20 06/29/20 16:53 21:10 00:06 WBC RBC Hgb Hct MCV MCH MCHC RDW Lymph % (Auto) Lymph # (Auto) [place] # (Auto) Baso # (Auto) Seg Neutrophils % Seg Neuts % (Manual) Lymphocytes % (Manual) Nucleated RBC % Seg Neutrophils # Seg Neutrophils # Man Lymphocytes # (Manual) Monocytes # (Manual) Eosinophils # (Manual) PT INR APTT D-Dimer Heparin Anti-Xa Level ABG pH POC ABG pCO2 POC ABG pO2 ABG pO2 ABG HCO3 ABG O2 Saturation ABG Base Excess ABG Hemoglobin ABG Oxyhemoglobin ABG Sodium ABG Potassium ABG Chloride ABG Glucose Oxyhemoglobin Sodium Potassium Chloride Carbon Dioxide BUN Creatinine Glucose POC Glucose 211 H 195 H 200 H Lactic Acid Calcium Magnesium Ferritin Total Bilirubin Direct Bilirubin AST ALT Alkaline Phosphatase Lactate Dehydrogenase C-Reactive Protein Total Protein Albumin Triglycerides Lipase Arterial Blood Glucose Arterial Blood Ionized Calcium Urine WBC (Auto) Coronavirus (PCR) SARS-CoV-2 IgG Ab Crossmatch 06/29/20 06/29/20 06/29/20 03:11 04:00 04:00 WBC 18.8 H RBC 2.82 L Hgb 10.1 L Hct 28.5 L MCV 101 H MCH 36 H MCHC 36 H RDW 17.5 H Lymph % (Auto) 10.7 L Lymph # (Auto) [place] # (Auto) 1.0 H Baso # (Auto) 0.3 H Seg Neutrophils % 82.2 H Seg Neuts % (Manual) Lymphocytes % (Manual) Nucleated RBC % Seg Neutrophils # 15.5 H Seg Neutrophils # Man Lymphocytes # (Manual) Monocytes # (Manual) Eosinophils # (Manual) PT INR APTT D-Dimer Heparin Anti-Xa Level ABG pH POC ABG pCO2 57.5 H POC ABG pO2 69.1 L ABG pO2 ABG HCO3 ABG O2 Saturation ABG Base Excess ABG Hemoglobin 10.2 L ABG Oxyhemoglobin 92.3 L ABG Sodium 130.7 L ABG Potassium 3.2 L ABG Chloride 93.0 L ABG Glucose 228 H Oxyhemoglobin Sodium 134 L Potassium 3.3 L Chloride 89.5 L Carbon Dioxide 40 H BUN Creatinine 0.2 L Glucose 190 H POC Glucose Lactic Acid Calcium Magnesium Ferritin Total Bilirubin Direct Bilirubin AST < 5 L ALT < 5 L Alkaline Phosphatase Lactate Dehydrogenase C-Reactive Protein Total Protein 5.9 L Albumin 2.2 L Triglycerides Lipase Arterial Blood Glucose 228 H Arterial Blood Ionized Calcium Urine WBC (Auto) Coronavirus (PCR) SARS-CoV-2 IgG Ab Crossmatch 06/29/20 06/29/20 06/29/20 05:00 05:23 09:36 WBC RBC Hgb Hct MCV MCH MCHC RDW Lymph % (Auto) Lymph # (Auto) [place] # (Auto) Baso # (Auto) Seg Neutrophils % Seg Neuts % (Manual) Lymphocytes % (Manual) Nucleated RBC % Seg Neutrophils # Seg Neutrophils # Man Lymphocytes # (Manual) Monocytes # (Manual) Eosinophils # (Manual) PT INR APTT D-Dimer Heparin Anti-Xa Level ABG pH POC ABG pCO2 POC ABG pO2 ABG pO2 ABG HCO3 ABG O2 Saturation ABG Base Excess ABG Hemoglobin ABG Oxyhemoglobin ABG Sodium ABG Potassium ABG Chloride ABG Glucose Oxyhemoglobin Sodium Potassium Chloride Carbon Dioxide BUN Creatinine Glucose POC Glucose 165 H Lactic Acid Calcium Magnesium Ferritin Total Bilirubin Direct Bilirubin AST ALT Alkaline Phosphatase Lactate Dehydrogenase C-Reactive Protein Total Protein Albumin Triglycerides 1544 H 1799 H Lipase Arterial Blood Glucose Arterial Blood Ionized Calcium Urine WBC (Auto) Coronavirus (PCR) SARS-CoV-2 IgG Ab Crossmatch 06/29/20 06/29/20 06/29/20 09:36 12:02 18:00 WBC RBC Hgb Hct MCV MCH MCHC RDW Lymph % (Auto) Lymph # (Auto) [place] # (Auto) Baso # (Auto) Seg Neutrophils % Seg Neuts % (Manual) Lymphocytes % (Manual) Nucleated RBC % Seg Neutrophils # Seg Neutrophils # Man Lymphocytes # (Manual) Monocytes # (Manual) Eosinophils # (Manual) PT INR APTT D-Dimer Heparin Anti-Xa Level ABG pH POC ABG pCO2 POC ABG pO2 ABG pO2 ABG HCO3 ABG O2 Saturation ABG Base Excess ABG Hemoglobin ABG Oxyhemoglobin ABG Sodium ABG Potassium ABG Chloride ABG Glucose Oxyhemoglobin Sodium Potassium Chloride Carbon Dioxide BUN Creatinine Glucose POC Glucose 197 H 187 H Lactic Acid Calcium Magnesium Ferritin Total Bilirubin Direct Bilirubin AST ALT Alkaline Phosphatase Lactate Dehydrogenase C-Reactive Protein Total Protein Albumin Triglycerides Lipase 86 H Arterial Blood Glucose Arterial Blood Ionized Calcium Urine WBC (Auto) Coronavirus (PCR) SARS-CoV-2 IgG Ab Crossmatch 06/29/20 06/30/20 06/30/20 23:33 03:46 05:50 WBC RBC Hgb Hct MCV MCH MCHC RDW Lymph % (Auto) Lymph # (Auto) [place] # (Auto) Baso # (Auto) Seg Neutrophils % Seg Neuts % (Manual) Lymphocytes % (Manual) Nucleated RBC % Seg Neutrophils # Seg Neutrophils # Man Lymphocytes # (Manual) Monocytes # (Manual) Eosinophils # (Manual) PT INR APTT D-Dimer Heparin Anti-Xa Level ABG pH 7.466 H POC ABG pCO2 57.3 H POC ABG pO2 66.1 L ABG pO2 ABG HCO3 ABG O2 Saturation ABG Base Excess ABG Hemoglobin 10.2 L ABG Oxyhemoglobin 92.3 L ABG Sodium 134.4 L ABG Potassium 3.2 L ABG Chloride 94.0 L ABG Glucose 178 H Oxyhemoglobin Sodium Potassium Chloride Carbon Dioxide BUN Creatinine Glucose POC Glucose 170 H 170 H Lactic Acid Calcium Magnesium Ferritin Total Bilirubin Direct Bilirubin AST ALT Alkaline Phosphatase Lactate Dehydrogenase C-Reactive Protein Total Protein Albumin Triglycerides Lipase Arterial Blood Glucose 178 H Arterial Blood Ionized Calcium Urine WBC (Auto) Coronavirus (PCR) SARS-CoV-2 IgG Ab Crossmatch 06/30/20 06/30/20 06/30/20 07:00 07:00 12:04 WBC 15.6 H RBC 2.91 L Hgb 9.8 L Hct 29.7 L MCV 102 H MCH 34 H MCHC RDW 17.8 H Lymph % (Auto) Lymph # (Auto) [place] # (Auto) Baso # (Auto) Seg Neutrophils % Seg Neuts % (Manual) Lymphocytes % (Manual) 5.0 L Nucleated RBC % Seg Neutrophils # Seg Neutrophils # Man 14.8 H Lymphocytes # (Manual) 0.8 L Monocytes # (Manual) Eosinophils # (Manual) PT INR APTT D-Dimer Heparin Anti-Xa Level ABG pH POC ABG pCO2 POC ABG pO2 ABG pO2 ABG HCO3 ABG O2 Saturation ABG Base Excess ABG Hemoglobin ABG Oxyhemoglobin ABG Sodium ABG Potassium ABG Chloride ABG Glucose Oxyhemoglobin Sodium Potassium Chloride 93.3 L Carbon Dioxide 43 H* BUN Creatinine 0.3 L Glucose 260 H POC Glucose 245 H Lactic Acid Calcium Magnesium Ferritin Total Bilirubin Direct Bilirubin AST ALT Alkaline Phosphatase Lactate Dehydrogenase C-Reactive Protein Total Protein Albumin 2.8 L Triglycerides 452 H Lipase Arterial Blood Glucose Arterial Blood Ionized Calcium Urine WBC (Auto) Coronavirus (PCR) SARS-CoV-2 IgG Ab Crossmatch 06/30/20 07/01/20 07/01/20 17:32 00:02 05:02 WBC RBC Hgb Hct MCV MCH MCHC RDW Lymph % (Auto) Lymph # (Auto) [place] # (Auto) Baso # (Auto) Seg Neutrophils % Seg Neuts % (Manual) Lymphocytes % (Manual) Nucleated RBC % Seg Neutrophils # Seg Neutrophils # Man Lymphocytes # (Manual) Monocytes # (Manual) Eosinophils # (Manual) PT INR APTT D-Dimer Heparin Anti-Xa Level ABG pH POC ABG pCO2 58.1 H POC ABG pO2 ABG pO2 ABG HCO3 ABG O2 Saturation ABG Base Excess ABG Hemoglobin 11.2 L ABG Oxyhemoglobin ABG Sodium 132.7 L ABG Potassium ABG Chloride 92.0 L ABG Glucose 238 H Oxyhemoglobin Sodium Potassium Chloride Carbon Dioxide BUN Creatinine Glucose POC Glucose 209 H 208 H Lactic Acid Calcium Magnesium Ferritin Total Bilirubin Direct Bilirubin AST ALT Alkaline Phosphatase Lactate Dehydrogenase C-Reactive Protein Total Protein Albumin Triglycerides Lipase Arterial Blood Glucose 238 H Arterial Blood Ionized Calcium Urine WBC (Auto) Coronavirus (PCR) SARS-CoV-2 IgG Ab Crossmatch 07/01/20 07/01/20 07/01/20 06:16 06:41 06:41 WBC 18.1 H RBC 2.33 L Hgb 7.1 L Hct 21.3 L D MCV MCH MCHC RDW Lymph % (Auto) Lymph # (Auto) [place] # (Auto) Baso # (Auto) Seg Neutrophils % Seg Neuts % (Manual) 82.0 H Lymphocytes % (Manual) 7.0 L Nucleated RBC % 1.0 H Seg Neutrophils # Seg Neutrophils # Man 14.8 H Lymphocytes # (Manual) Monocytes # (Manual) 1.1 H Eosinophils # (Manual) 0.5 H PT INR APTT D-Dimer Heparin Anti-Xa Level < 0.10 L ABG pH POC ABG pCO2 POC ABG pO2 ABG pO2 ABG HCO3 ABG O2 Saturation ABG Base Excess ABG Hemoglobin ABG Oxyhemoglobin ABG Sodium ABG Potassium ABG Chloride ABG Glucose Oxyhemoglobin Sodium Potassium Chloride Carbon Dioxide BUN Creatinine Glucose POC Glucose 180 H Lactic Acid Calcium Magnesium Ferritin Total Bilirubin Direct Bilirubin AST ALT Alkaline Phosphatase Lactate Dehydrogenase C-Reactive Protein Total Protein Albumin Triglycerides Lipase Arterial Blood Glucose Arterial Blood Ionized Calcium Urine WBC (Auto) Coronavirus (PCR) SARS-CoV-2 IgG Ab Crossmatch Allied health notes reviewed: nursing
[2020-07-01 08:59] LABS: Blood Urea Nitrogen 13 mg/dL (9-20); Calcium 8.5 mg/dL (8.4-10.2); Hemolysis Index 0
[2020-07-01] MEDS: DOCUSATE SODIUM 100 MG/10 ML ORAL LIQD PO SCH ×2 (09:25→21:36)
[2020-07-01] MEDS: LANSOPRAZOLE 30 MG SOLUTAB FEEDTUBE SCH (09:25)
[2020-07-01] MEDS: FOLIC ACID 1 MG TAB PO SCH (09:25)
[2020-07-01] MEDS: SENNOSIDES 8.6 MG TAB PO SCH ×2 (09:25→21:37)
[2020-07-01] MEDS: MIDAZOLAM 100 MG in SODIUM CHLORIDE 0.9% 80 ML IV SCH (09:27)
[2020-07-01 09:33] LABS: BUN/Creatinine Ratio 43
[2020-07-01] MEDS: POTASSIUM CHLORIDE 20 MEQ PACKET FEEDTUBE SCH ×2 (10:33→13:08)
[2020-07-01] MEDS: HEPARIN/ 0.45% NACL DRIP 25,000 UNIT/500 ML BAG IV SCH (14:42)
--- NOTE | 2020-07-01 17:57 | Progress Note ---
Assessment and Plan - Acute hypoxemic respiratory failure; Patient intubated and on vent support --Severe COVID-19 bilateral pneumonia Coronavirus protocol: IV steroid therapy, completed remdesivir, isolation precautions, contact precautions, prone positioning while in bed, pulmonary toilet. ID following SARS CoV-2 IgG positive patient is NOT a candidate for COVID convalescent plasma --Severe sepsis/septic shock, due to COVID 19 PNA cont pressors as needed -- Acute kidney injury (SEN) , likely vasomotor nephropathy Resolved, IV fluids, avoid nephrotoxins --Acute on chronic anemia Guaiac test positive GI evaluation PPIs Continue to monitor -- Elevated liver function tests Suspected secondary to alcoholic liver disease. Supportive care, alcohol cessation, patient counseled. --Colonic distention GI evaluation -recommend stool softeners Serial abdominal x-rays Monitor electrolytes and replete --History of alcohol dependence, status post CIWA protocol along with thiamine folic acid and multivitamin --right pneumothorax, s/p right chest tube placed on 06/21/20 -- DVT prophylaxis On therapeutic Lovenox The high probability of a clinically significant, sudden or life threatening deterioration of the [respiratory] system(s) required my full and direct attention, intervention and personal management. The aggregate critical care time was [31] minutes. This time is in addition to time spent performing reported procedures but includes the following: [x] Data Review and interpretation [x] Patient assessment and monitoring of vital signs [x] Documentation [x] Medication orders and management Brief History: 50 YO Male with Obesity, ETOH Dependence presents to ED for evaluation for shortness of breath, generalized weakness, fatigue, malaise, body aches, decreased exercise tolerance over the past 5 days. EMS was notified and upon arrival the patient was found to be in distress with a pulse oximetry of 76% on room air as well as fever to 103 F. In the ER chest x-ray and was found to have bilateral pneumonia. Patient admitted to medical floor and initiated on pneumonia protocol as well as COVID-19 protocol. Patient reports being diagnosed with coronavirus 2 days ago. 05/10- 05/17: follow inflammatory markers, consulted ID/pulmonary. patient on high flow O2 05/18/20; patient feels slightly better still hypoxic, requiring continuous high flow oxygen and BiPAP Respiratory team trying to wean 05/19/20; patient is severely hypoxemic requiring continuous BiPAP today, complains of generalized weakness Trying to wean off high flow oxygen, patient is in isolation 05/20/2020; patient remains on high flow oxygen/BiPAP/100% nonrebreather. Still is hypoxemic Has sinus tachycardia patient in mild distress Wean off high flow oxygen as tolerated, pulmonary critical following 05/21/20; patient is critically ill, on continuous BiPAP remains hypoxemic in mild distress. Patient has severe Covid Pneumonia with persistent hypoxemia and poor prognosis. 05/22/2020: Patient was intubated last night because of persistent hypoxemia. 05/23-06/15: Remains on ventilatory support, unable to wean off from the vent. 06/16/2020. Patient currently on mechanical ventilation with AC mode rate 30, tidal volume 500, FiO2 70% and PEEP of 16. Continue anticoagulation with Lovenox 110 milligrams subcu every 12 hours. Wean sedation of fentanyl/Versed as needed. Currently with IV steroids of Solu-Medrol 40 mg IV every 12 hours. Patient will likely need tracheostomy per pulmonary recommendations. Continue pressors to maintain MAP > 65. 06/17/2020. Patient currently on mechanical ventilation with AC mode rate 30, tidal volume 500, FiO2 65% and PEEP of 16. Continue anticoagulation with Lovenox 110 milligrams subcu every 12 hours. Wean sedation of fentanyl/Versed as needed. Currently with IV steroids of Solu-Medrol 40 mg IV every 12 hours. Patient will likely need tracheostomy per pulmonary recommendations. 06/18/2020. Patient currently on mechanical ventilation with AC mode rate 30, tidal volume 500, FiO2 70% and PEEP of 16. Continue Lovenox for anticoagulation and fentanyl/Versed for sedation. Wean steroids per pulmonary. CIWA protocol initiated for history of EtOH dependence 06/19/2020. Patient currently on mechanical ventilation with AC mode rate 30, tidal volume 500, FiO2 60% and PEEP of 16. Wean FiO2 as tolerated per protocol. Continue Lovenox for anticoagulation and fentanyl/Versed for sedation. Wean steroids per pulmonary. CIWA protocol initiated for history of EtOH dependence 06/20/2020. Patient currently on mechanical ventilation with AC mode rate 30, tidal volume 500, FiO2 60% and PEEP of 16. Wean FiO2 as tolerated, SBT per protocol. Continue Lovenox for anticoagulation and fentanyl/Versed for sedation. Wean steroids per pulmonary. Continue pressors to maintain MAP > 65 mmHg. Patient remains on ETT. Consider tracheostomy placement once oxygenation is better per pulmonary. CIWA protocol initiated for history of EtOH de pendence. 06/21/2020. Patient with a small apical pneumothorax discovered yesterday. General surgery consulted and consider placing chest tube. Follow-up serial chest x-ray patient currently on mechanical ventilation with AC mode rate 30, tidal volume 500, FiO2 60% and PEEP of 16. Wean FiO2 as tolerated, SBT per protocol. Continue Lovenox for anticoagulation and fentanyl/Versed for sedation. Wean steroids per pulmonary. Continue pressors to maintain MAP > 65 mmHg. Patient remains on ETT. Consider tracheostomy placement once oxygenation is better per pulmonary. CIWA protocol initiated for history of EtOH dependence. 06/22. Status post right chest tube placement yesterday. Remains mechanically ventilated on pressors. Examination today shows slightly distended abdomen. KUB ordered. Awaiting stool guaiac. Plan to get a GI evaluation. 06/23. Has colonic distention on the x-ray. Discussed with GI-advised stool softeners for now and close monitoring. No indication for colonic decompression at this time. Guaiac test is positive. No emergent indication for endoscopy at this point as per GI. Continue to monitor hemoglobin. 06/24. Remains intubated. On pressors. GI following for positive guaiac stool and anemia, and colonic distention. 06/25. Repeat abdominal xray ordered. Remains on mechanical ventilation. 06/26. Abdominal xray - resolved colonic distension. Mechanically ventilated. 06/27. Plan for trach and PEG. 06/28: Awaiting trach and Peg. Some Bm REPORTED, will continue to monitor 06/29: Resume care, patient remains on ventilator support, waiting on trach and PEG placement. BM reported by the RN, continue to monitor. 06/30: Unable to wean off from vent, patient will need trach and PEG. Continue supportive care, tolerating tube feed. Monitor CBC and BMP 07/01: Continue mechanical ventilation, tube feeding as tolerated. Sedation as needed per mechanical ventilation protocol. Waiting on trach and PEG placement. Subjective Date of service: 07/01/20 Principal diagnosis: Ac hypoxemic resp failure; COVID-19; Severe Sepsis; Shaggy PNA; Alcohol Abuse Interval history: Patient seen and examined Patient remains on mechanical ventilation Chest tube in place Tolerating tube feeding Objective - Exam Narrative Exam: General appearance: Present: no distress, obese, intubated - EENT Eyes: Present: PERRL ENT: Et tube in place - Neck Neck: Present: supple, - Respiratory Respiratory effort: on mechanical ventilation Respiratory: bilateral: diminished, rhonchi, CT tube in place - Cardiovascular Heart Sounds: Present: S1 & S2. Absent: rub, click - Extremities Extremities: pulses symmetrical, No edema Peripheral Pulses: within normal limits - Abdominal General gastrointestinal: Present: soft, non-tender, mild distended, normal bowel sounds Male genitourinary: Present: normal - Integumentary Integumentary: Present: clear, warm, dry - Musculoskeletal Musculoskeletal: generalized weakness - Psychiatric Psychiatric: Unable to assess - Neurologic Neurologic: Intubated - Constitutional Vitals: Vital Signs - 12hr 07/01/20 07/01/20 07/01/20 06:01 06:15 06:30 Temperature Pulse Rate 127 H 121 H 116 H Pulse Rate [ From Monitor] Respiratory 24 18 16 Rate Respiratory Rate [ Generalized] Blood Pressure 128/84 128/84 126/70 O2 Sat by Pulse 99 100 99 Oximetry 07/01/20 07/01/20 07/01/20 06:45 07:00 07:15 Temperature Pulse Rate 108 H 99 H 89 Pulse Rate [ From Monitor] Respiratory 30 H 30 H 30 H Rate Respiratory Rate [ Generalized] Blood Pressure 117/49 117/49 103/54 O2 Sat by Pulse 100 100 98 Oximetry 07/01/20 07/01/20 07/01/20 07:30 07:45 08:00 Temperature 98.6 F Pulse Rate 85 95 H 105 H Pulse Rate [ 106 H From Monitor] Respiratory 30 H 30 H 30 H Rate Respiratory Rate [ Generalized] Blood Pressure 83/52 142/87 115/77 O2 Sat by Pulse 99 100 Oximetry 07/01/20 07/01/20 07/01/20 08:15 08:30 08:45 Temperature Pulse Rate 88 104 H 101 H Pulse Rate [ From Monitor] Respiratory 30 H 30 H 30 H Rate Respiratory Rate [ Generalized] Blood Pressure 103/70 155/89 155/89 O2 Sat by Pulse 100 100 Oximetry 07/01/20 07/01/20 07/01/20 09:00 09:15 09:30 Temperature Pulse Rate 114 H 88 86 Pulse Rate [ From Monitor] Respiratory 22 30 H 30 H Rate Respiratory Rate [ Generalized] Blood Pressure 116/80 96/45 87/50 O2 Sat by Pulse 91 92 Oximetry 07/01/20 07/01/20 07/01/20 09:45 10:00 10:15 Temperature Pulse Rate 85 85 83 Pulse Rate [ From Monitor] Respiratory 30 H 30 H 30 H Rate Respiratory 30 H Rate [ Generalized] Blood Pressure 93/58 91/58 95/61 O2 Sat by Pulse 97 98 98 Oximetry 07/01/20 07/01/20 07/01/20 10:30 10:45 11:00 Temperature Pulse Rate 85 82 84 Pulse Rate [ From Monitor] Respiratory 30 H 30 H 30 H Rate Respiratory Rate [ Generalized] Blood Pressure 100/64 97/62 100/67 O2 Sat by Pulse 99 99 100 Oximetry 07/01/20 07/01/20 07/01/20 11:15 11:26 11:30 Temperature Pulse Rate 80 81 80 Pulse Rate [ From Monitor] Respiratory 30 H 30 H Rate Respiratory Rate [ Generalized] Blood Pressure 100/67 100/67 103/66 O2 Sat by Pulse 99 100 99 Oximetry 07/01/20 07/01/20 07/01/20 11:45 12:00 12:15 Temperature 97.9 F Pulse Rate 80 81 81 Pulse Rate [ 80 From Monitor] Respiratory 30 H 30 H 30 H Rate Respiratory Rate [ Generalized] Blood Pressure 104/67 100/67 101/66 O2 Sat by Pulse 99 97 97 Oximetry 07/01/20 07/01/20 07/01/20 12:30 12:45 13:00 Temperature Pulse Rate 79 78 78 Pulse Rate [ From Monitor] Respiratory 30 H 30 H 30 H Rate Respiratory Rate [ Generalized] Blood Pressure 100/64 101/67 103/70 O2 Sat by Pulse 98 96 98 Oximetry 07/01/20 07/01/20 07/01/20 13:15 13:30 13:45 Temperature Pulse Rate 104 H 93 H 88 Pulse Rate [ From Monitor] Respiratory 30 H 30 H 30 H Rate Respiratory Rate [ Generalized] Blood Pressure 100/64 92/57 90/59 O2 Sat by Pulse 96 97 96 Oximetry 07/01/20 07/01/20 07/01/20 14:00 14:15 14:30 Temperature Pulse Rate 87 83 82 Pulse Rate [ From Monitor] Respiratory 30 H 30 H 30 H Rate Respiratory Rate [ Generalized] Blood Pressure 91/60 98/65 93/63 O2 Sat by Pulse 97 96 97 Oximetry 07/01/20 07/01/20 07/01/20 14:45 15:00 15:15 Temperature Pulse Rate 81 83 82 Pulse Rate [ From Monitor] Respiratory 30 H 30 H 30 H Rate Respiratory Rate [ Generalized] Blood Pressure 101/68 101/68 93/60 O2 Sat by Pulse 96 98 98 Oximetry 07/01/20 07/01/20 07/01/20 15:30 15:45 15:48 Temperature Pulse Rate 77 81 Pulse Rate [ From Monitor] Respiratory 30 H Rate Respiratory Rate [ Generalized] Blood Pressure 88/56 97/66 93/65 O2 Sat by Pulse 98 98 96 Oximetry 07/01/20 16:00 Temperature 97.9 F Pulse Rate 75 Pulse Rate [ 80 From Monitor] Respiratory 30 H Rate Respiratory Rate [ Generalized] Blood Pressure 102/68 O2 Sat by Pulse 98 Oximetry - Labs CBC & Chem 7: 07/02/20 16:08 07/02/20 16:08 Labs: Abnormal lab results 07/01/20 07/01/20 07/01/20 Range/Units 00:02 05:02 06:16 WBC (4.5-11.0) K/mm3 RBC (3.65-5.03) M/mm3 Hgb (11.8-15.2) gm/dl Hct (35.5-45.6) % Seg Neuts % (Manual) (40.0-70.0) % Lymphocytes % (Manual) (13.4-35.0) % Nucleated RBC % (0.0-0.9) % Seg Neutrophils # Man (1.8-7.7) K/mm3 Monocytes # (Manual) (0.0-0.8) K/mm3 Eosinophils # (Manual) (0.0-0.4) K/mm3 Heparin Anti-Xa Level (0.3-0.7) U.I./ml POC ABG pCO2 58.1 H (32.0-48.0) mmHg ABG Hemoglobin 11.2 L (12.0-17.5) ABG Sodium 132.7 L (136.0-145.0) mmol/L ABG Chloride 92.0 L (98-107) mmol/L ABG Glucose 238 H (65-95) mg/dL Sodium (137-145) mmol/L Potassium (3.6-5.0) mmol/L Chloride (98-107) mmol/L Carbon Dioxide (22-30) mmol/L Creatinine (0.8-1.3) mg/dL Glucose (75-100) mg/dL POC Glucose 208 H 180 H (70-105) mg/dL Arterial Blood Glucose 238 H (65-95) mg/dL 07/01/20 07/01/20 07/01/20 Range/Units 06:41 06:41 08:11 WBC 18.1 H (4.5-11.0) K/mm3 RBC 2.33 L (3.65-5.03) M/mm3 Hgb 7.1 L (11.8-15.2) gm/dl Hct 21.3 L D (35.5-45.6) % Seg Neuts % (Manual) 82.0 H (40.0-70.0) % Lymphocytes % (Manual) 7.0 L (13.4-35.0) % Nucleated RBC % 1.0 H (0.0-0.9) % Seg Neutrophils # Man 14.8 H (1.8-7.7) K/mm3 Monocytes # (Manual) 1.1 H (0.0-0.8) K/mm3 Eosinophils # (Manual) 0.5 H (0.0-0.4) K/mm3 Heparin Anti-Xa Level < 0.10 L (0.3-0.7) U.I./ml POC ABG pCO2 (32.0-48.0) mmHg ABG Hemoglobin (12.0-17.5) ABG Sodium (136.0-145.0) mmol/L ABG Chloride (98-107) mmol/L ABG Glucose (65-95) mg/dL Sodium 135 L (137-145) mmol/L Potassium 3.0 L (3.6-5.0) mmol/L Chloride 93.1 L (98-107) mmol/L Carbon Dioxide 40 H (22-30) mmol/L Creatinine 0.3 L (0.8-1.3) mg/dL Glucose 140 H (75-100) mg/dL POC Glucose (70-105) mg/dL Arterial Blood Glucose (65-95) mg/dL 07/01/20 07/01/20 07/01/20 Range/Units 12:04 16:16 17:09 WBC (4.5-11.0) K/mm3 RBC (3.65-5.03) M/mm3 Hgb (11.8-15.2) gm/dl Hct (35.5-45.6) % Seg Neuts % (Manual) (40.0-70.0) % Lymphocytes % (Manual) (13.4-35.0) % Nucleated RBC % (0.0-0.9) % Seg Neutrophils # Man (1.8-7.7) K/mm3 Monocytes # (Manual) (0.0-0.8) K/mm3 Eosinophils # (Manual) (0.0-0.4) K/mm3 Heparin Anti-Xa Level 1.02 H (0.3-0.7) U.I./ml POC ABG pCO2 (32.0-48.0) mmHg ABG Hemoglobin (12.0-17.5) ABG Sodium (136.0-145.0) mmol/L ABG Chloride (98-107) mmol/L ABG Glucose (65-95) mg/dL Sodium (137-145) mmol/L Potassium (3.6-5.0) mmol/L Chloride (98-107) mmol/L Carbon Dioxide (22-30) mmol/L Creatinine (0.8-1.3) mg/dL Glucose (75-100) mg/dL POC Glucose 223 H 233 H (70-105) mg/dL Arterial Blood Glucose (65-95) mg/dL
[2020-07-01] MEDS: INSULIN GLARGINE 100 UNITS/ML SUB-Q SCH (22:16)
[2020-07-02] MEDS: fentaNYL DRIP Premix 2,000 MCG/100 ML BAG IV SCH ×6 (00:09→22:57)
[2020-07-02] MEDS: methylPREDNISolone Sod Succinate 40 MG/1 ML INJ IV SCH ×2 (05:02→18:34)
[2020-07-02] MEDS: PHENobarbital 20 MG/5 ML ORAL LIQD FEEDTUBE SCH ×3 (05:02→22:09)
[2020-07-02] MEDS: MIDAZOLAM 100 MG in SODIUM CHLORIDE 0.9% 80 ML IV SCH ×2 (05:23→23:48)
[2020-07-02] MEDS: INSULIN LISPRO 100 UNIT/ML VIAL 3 mL SUB-Q SCH ×3 (05:41→18:34)
[2020-07-02] MEDS: MIDODRINE 5 MG TAB PO SCH ×3 (07:38→16:55)
[2020-07-02] MEDS: QUEtiapine 100 MG TAB PO SCH ×4 (07:38→22:53)
[2020-07-02] MEDS: ALPRAZolam 0.25 MG TAB PO PRN ×2 (07:52→20:43)
[2020-07-02] MEDS ORDERED: METOPROLOL TARTRATE 5 MG/5 ML INJ IV NR (09:07)
[2020-07-02] MEDS: LANSOPRAZOLE 30 MG SOLUTAB FEEDTUBE SCH (09:39)
[2020-07-02] MEDS: DOCUSATE SODIUM 100 MG/10 ML ORAL LIQD PO SCH ×2 (09:39→22:11)
[2020-07-02] MEDS: SENNOSIDES 8.6 MG TAB PO SCH ×2 (09:39→22:10)
[2020-07-02] MEDS: FOLIC ACID 1 MG TAB PO SCH (09:39)
[2020-07-02] MEDS: HEPARIN/ 0.45% NACL DRIP 25,000 UNIT/500 ML BAG IV SCH (13:14)
[2020-07-02 16:29] LABS: Hematocrit 32.7 % (35.5-45.6); Hemoglobin 10.7 gm/dl (11.8-15.2)
[2020-07-02 16:37] LABS: Mean Corpuscular HGB Conc 33 % (32-34); Mean Corpuscular Volume 100 fl (84-94); Platelet Count 359 K/mm3 (140-440); Red Blood Count 3.28 M/mm3 (3.65-5.03); Red Cell Distribution Width 17.2 % (13.2-15.2)
[2020-07-02 16:50] LABS: Blood Urea Nitrogen 13 mg/dL (9-20); Calcium 9.2 mg/dL (8.4-10.2); Hemolysis Index 10
[2020-07-02 16:51] LABS: BUN/Creatinine Ratio 43
--- NOTE | 2020-07-02 17:15 | Progress Note ---
Assessment and Plan Acute hypoxemic respiratory failure due to COVID-19 Severe Sepsis Bilateral pneumonia Acute kidney injury (SEN) with acute tubular necrosis (ATN) Alcohol dependence Elevated liver function tests - repeat CXR in am re: chest tube - reduced FiO2 to 50% - tracheostomy consult placed; repeat COVID test now negative - repeat EKG in am re: QT - metoprolol 5 mg IV q6h prn pulse > 130/min - weaning slowly, continue care as below otherwise; - continue Seroquel at 300 mg po tid - continue Precedex - prn 12 lead EKG to monitor QT - continue midodrine re: hypotension - keep peep at 8 - continue bid protonix - continue bowel regimen - continue to wean supplemental oxygen for target O2 sat's > 92% acutely - continue to wean Levophed for target MAP > 65 mmHg - tracheostomy placement once oxygenation better / more hemodynamically stable - he will need a tracheostomy once numbers better - continue Daily SAT and SBT assessment as tolerated - VAP bundle addressed - continue lung protective strategies - continue bronchodilators with pulmonary hygiene per RT - wean per pulmonary driven protocols otherwise - accuchecks with glycemic control per SSI (While critically ill target blood glucose of 140-180 mg/dL; avoid hypoglycemia) - sedation prn for target RASS -1 to -2 - continue enteral nutritional support at goal rate as tolerated - continue airborne and contact isolation - follow repeat COVID-19 testing - continue Zinc & Vit C supplementaion - continue systemic steroids for Asthma / severe COVID infection - Prone positioning as tolerated - continue empiric full dose anticoagulation re: elevated d-dimers / hypercoa gulable state - NOT a candidate for COVID convalescent plasma - continue systemic steroids X >/= 10 days - completed remdesivir dosing (total 5 days) - empiric AB's coverage per ID rec's - accuchecks with glycemic control per SSI (While critically ill target blood glucose of 140-180 mg/dL; avoid hypoglycemia) - avoid nephrotoxins, renally dose all medications - continue to avoid benzodiazepine's, reduce the possibility of delirium - continue wound care per RN / WCN - prn analgesia per CPOT score - Maintenance of sleep-wake cycle, avoid delirium - continue to avoid benzodiazepine's, reduce the possibility of delirium - aspiration precautions - G.I. & VTE prophylaxis - PT/OT/ROM exercises - continue mobility protocols for pressure ulcer prophylaxis - Monitor hemodynamics closely - continue other care per attending / other consultants - discharge planning ongoing concurrently .... Re-evaluate in am & prn CONDITION: CRITICAL PROGNOSIS: GUARDED CODE STATUS: FULL CODE The high probability of a clinically significant, sudden or life-threatening deterioration of the [respiratory, cardiovascular, hematologic & neurologic] system(s) required my full and direct attention, intervention and personal management. The aggregate critical care time was [37] minutes without overlap. Time includes spent on; [x] Data Review and interpretation [x] Patient assessment and monitoring of vital signs [x] Documentation [x] Medication orders and management Subjective Date of service: 07/02/20 Principal diagnosis: Ac hypoxemic resp failure; COVID-19; Severe Sepsis; Shaggy PNA; Alcohol Abuse Interval history: Patient is seen today for: Acute hypoxemic respiratory failure due to COVID-19; Severe Sepsis; Bilateral pneumonia; Alcohol dependence; Elevated liver function tests Seen and examined at bedside; 24hour events reviewed; nursing and respiratory care staff consulted; no adverse overnight events reported to me; resting in bed; remains on MVS; alert; responds appropriately; denies pain; + episode of SVT to 170's earlier; No N/V/F/C; off propofol Objective Vital Signs - 12hr 07/02/20 07/02/20 07/02/20 05:15 05:31 05:45 Temperature Pulse Rate 133 H 159 H 143 H Pulse Rate [ From Monitor] Respiratory 23 20 38 H Rate Blood Pressure 143/90 134/82 123/79 O2 Sat by Pulse 81 L 80 L 95 Oximetry 07/02/20 07/02/20 07/02/20 06:01 06:15 06:31 Temperature Pulse Rate 144 H 145 H 152 H Pulse Rate [ From Monitor] Respiratory 32 H 27 H 35 H Rate Blood Pressure 149/84 132/84 132/84 O2 Sat by Pulse 91 96 95 Oximetry 07/02/20 07/02/20 07/02/20 06:45 07:00 07:15 Temperature Pulse Rate 151 H 152 H 152 H Pulse Rate [ From Monitor] Respiratory 38 H 37 H 38 H Rate Blood Pressure 147/84 149/93 149/93 O2 Sat by Pulse 96 96 97 Oximetry 07/02/20 07/02/20 07/02/20 07:31 07:45 07:55 Temperature Pulse Rate 155 H 154 H 164 H Pulse Rate [ From Monitor] Respiratory 37 H 27 H Rate Blood Pressure 112/90 149/93 132/84 O2 Sat by Pulse 97 96 97 Oximetry 07/02/20 07/02/20 07/02/20 08:00 08:01 08:15 Temperature 99.2 F Pulse Rate 163 H 158 H Pulse Rate [ 163 H From Monitor] Respiratory 42 H 39 H 36 H Rate Blood Pressure 149/93 112/90 O2 Sat by Pulse 96 96 97 Oximetry 07/02/20 07/02/20 07/02/20 08:31 08:45 09:01 Temperature Pulse Rate 165 H 169 H 163 H Pulse Rate [ From Monitor] Respiratory 40 H 38 H 40 H Rate Blood Pressure 136/76 136/76 128/85 O2 Sat by Pulse 96 96 96 Oximetry 07/02/20 07/02/20 07/02/20 09:15 09:31 09:39 Temperature Pulse Rate 157 H 155 H 154 H Pulse Rate [ From Monitor] Respiratory 39 H 38 H Rate Blood Pressure 128/85 140/85 130/74 O2 Sat by Pulse 97 97 Oximetry 07/02/20 07/02/20 07/02/20 09:45 10:00 10:15 Temperature Pulse Rate 125 H 131 H 136 H Pulse Rate [ From Monitor] Respiratory 35 H 33 H 36 H Rate Blood Pressure 133/88 113/67 133/88 O2 Sat by Pulse 99 99 99 Oximetry 07/02/20 07/02/20 07/02/20 10:30 10:45 11:01 Temperature Pulse Rate 134 H 135 H 143 H Pulse Rate [ From Monitor] Respiratory 33 H 28 H 39 H Rate Blood Pressure 111/78 111/84 111/84 O2 Sat by Pulse 100 100 97 Oximetry 07/02/20 07/02/20 07/02/20 11:15 11:31 11:45 Temperature Pulse Rate 138 H 146 H 140 H Pulse Rate [ From Monitor] Respiratory 37 H 37 H 37 H Rate Blood Pressure 137/96 166/86 166/86 O2 Sat by Pulse 97 97 97 Oximetry 07/02/20 07/02/20 07/02/20 12:00 12:01 12:15 Temperature 99.4 F Pulse Rate 143 H 137 H Pulse Rate [ 143 H From Monitor] Respiratory 36 H 36 H 34 H Rate Blood Pressure 157/83 157/83 O2 Sat by Pulse 98 98 99 Oximetry 07/02/20 07/02/20 07/02/20 12:30 12:36 12:45 Temperature Pulse Rate 140 H 140 H 133 H Pulse Rate [ From Monitor] Respiratory 36 H 29 H Rate Blood Pressure 142/80 142/80 142/80 O2 Sat by Pulse 99 100 100 Oximetry 07/02/20 07/02/20 07/02/20 13:00 13:15 13:30 Temperature Pulse Rate 128 H 122 H 117 H Pulse Rate [ From Monitor] Respiratory 24 24 22 Rate Blood Pressure 118/70 118/70 85/58 O2 Sat by Pulse 100 100 100 Oximetry 07/02/20 07/02/20 07/02/20 13:45 14:00 14:15 Temperature Pulse Rate 121 H 127 H 122 H Pulse Rate [ From Monitor] Respiratory 17 22 18 Rate Blood Pressure 85/58 124/60 124/60 O2 Sat by Pulse 100 100 100 Oximetry 07/02/20 07/02/20 07/02/20 14:30 14:45 15:00 Temperature Pulse Rate 118 H 120 H 119 H Pulse Rate [ From Monitor] Respiratory 25 H 30 H 27 H Rate Blood Pressure 93/57 93/57 103/71 O2 Sat by Pulse 100 100 99 Oximetry Constitutional: no acute distress, other (middle aged obese male with mildly increased respiratory effort at rest on MVS) Eyes: non-icteric ENT: oropharynx moist, other (ETT 24 cm CHILO) Neck: supple, no JVD Effort: mildly labored Ascultation: Bilateral: diminished breath sounds, rhonchi (scant), other (right chest tube) Percussion: Bilateral: not dull Cardiovascular: regular rate and rhythm, other (No R/M) Gastrointestinal: normoactive bowel sounds, soft, non-tender, other (distended and firm) Integumentary: normal Extremities: no cyanosis, no edema, pulses normal, no ischemia or petechiae Neurologic: non-focal exam (non focal grossly; weak), pupils equal and round, CN II-XII normal Psychiatric: mood appropriate, affect normal CBC and BMP: 07/02/20 16:08 07/02/20 16:08 ABG, PT/INR, D-dimer: ABG ABG pH 7.432 (7.320-7.450) 07/02/20 03:51 POC ABG pCO2 54.9 mmHg (32.0-48.0) H 07/02/20 03:51 ABG pCO2 69.8 mm Hg 06/22/20 03:50 POC ABG pO2 52.1 mmHg (83-108) L 07/02/20 03:51 ABG pO2 89.6 mm Hg (80.0-90.0) 06/22/20 03:50 POC ABG HCO3 35.8 07/02/20 03:51 ABG O2 Saturation 97.1 % (95.0-99.0) 06/22/20 03:50 PT/INR, D-dimer PT 11.8 Sec. (12.2-14.9) L 06/22/20 14:29 INR 0.88 (0.87-1.13) 06/22/20 14:29 D-Dimer 1887.82 ng/mlDDU (0-234) H 05/20/20 08:16 Abnormal lab findings: Abnormal Labs 05/09/20 05/09/20 05/09/20 12:59 12:59 12:59 WBC 11.8 H RBC Hgb Hct MCV 96 H MCH 34 H MCHC 35 H RDW Lymph % (Auto) 6.9 L Lymph # (Auto) 0.8 L [place] # (Auto) Baso # (Auto) Seg Neutrophils % 87.5 H Seg Neuts % (Manual) Lymphocytes % (Manual) Nucleated RBC % Seg Neutrophils # 10.3 H Seg Neutrophils # Man Lymphocytes # (Manual) Monocytes # (Manual) Eosinophils # (Manual) PT INR APTT D-Dimer Heparin Anti-Xa Level ABG pH POC ABG pCO2 POC ABG pO2 ABG pO2 ABG HCO3 ABG O2 Saturation ABG Base Excess ABG Hemoglobin ABG Oxyhemoglobin ABG Sodium ABG Potassium ABG Chloride ABG Glucose Oxyhemoglobin Carboxyhemoglobin Sodium 130 L Potassium 3.5 L Chloride 86.4 L Carbon Dioxide BUN 33 H Creatinine 2.3 H Glucose 156 H POC Glucose Lactic Acid Calcium Magnesium Ferritin Total Bilirubin 3.40 H Direct Bilirubin 1.7 H AST 385 H ALT 134 H Alkaline Phosphatase Lactate Dehydrogenase C-Reactive Protein Total Protein Albumin 3.0 L Triglycerides Lipase Arterial Blood Glucose Arterial Blood Ionized Calcium Urine WBC (Auto) Coronavirus (PCR) SARS-CoV-2 IgG Ab Crossmatch 05/09/20 05/09/20 05/09/20 12:59 12:59 12:59 WBC RBC Hgb Hct MCV MCH MCHC RDW Lymph % (Auto) Lymph # (Auto) [place] # (Auto) Baso # (Auto) Seg Neutrophils % Seg Neuts % (Manual) Lymphocytes % (Manual) Nucleated RBC % Seg Neutrophils # Seg Neutrophils # Man Lymphocytes # (Manual) Monocytes # (Manual) Eosinophils # (Manual) PT INR APTT D-Dimer 3242.51 H Heparin Anti-Xa Level ABG pH POC ABG pCO2 POC ABG pO2 ABG pO2 ABG HCO3 ABG O2 Saturation ABG Base Excess ABG Hemoglobin ABG Oxyhemoglobin ABG Sodium ABG Potassium ABG Chloride ABG Glucose Oxyhemoglobin Carboxyhemoglobin Sodium Potassium Chloride Carbon Dioxide BUN Creatinine Glucose 158 H POC Glucose Lactic Acid 3.50 H* Calcium Magnesium Ferritin Total Bilirubin Direct Bilirubin AST ALT Alkaline Phosphatase Lactate Dehydrogenase 2166 H C-Reactive Protein 39.00 H Total Protein Albumin Triglycerides Lipase Arterial Blood Glucose Arterial Blood Ionized Calcium Urine WBC (Auto) Coronavirus (PCR) SARS-CoV-2 IgG Ab Crossmatch 05/09/20 05/09/20 05/09/20 12:59 14:20 14:20 WBC RBC Hgb Hct MCV MCH MCHC RDW Lymph % (Auto) Lymph # (Auto) [place] # (Auto) Baso # (Auto) Seg Neutrophils % Seg Neuts % (Manual) Lymphocytes % (Manual) Nucleated RBC % Seg Neutrophils # Seg Neutrophils # Man Lymphocytes # (Manual) Monocytes # (Manual) Eosinophils # (Manual) PT INR APTT D-Dimer 2861.78 H Heparin Anti-Xa Level ABG pH POC ABG pCO2 POC ABG pO2 ABG pO2 ABG HCO3 ABG O2 Saturation ABG Base Excess ABG Hemoglobin ABG Oxyhemoglobin ABG Sodium ABG Potassium ABG Chloride ABG Glucose Oxyhemoglobin Carboxyhemoglobin Sodium Potassium Chloride Carbon Dioxide BUN Creatinine Glucose POC Glucose Lactic Acid 2.20 H* Calcium Magnesium Ferritin 59694.0 H Total Bilirubin Direct Bilirubin AST ALT Alkaline Phosphatase Lactate Dehydrogenase C-Reactive Protein Total Protein Albumin Triglycerides Lipase Arterial Blood Glucose Arterial Blood Ionized Calcium Urine WBC (Auto) Coronavirus (PCR) SARS-CoV-2 IgG Ab Crossmatch 05/09/20 05/09/20 05/09/20 14:20 14:20 15:56 WBC RBC Hgb Hct MCV MCH MCHC RDW Lymph % (Auto) Lymph # (Auto) [place] # (Auto) Baso # (Auto) Seg Neutrophils % Seg Neuts % (Manual) Lymphocytes % (Manual) Nucleated RBC % Seg Neutrophils # Seg Neutrophils # Man Lymphocytes # (Manual) Monocytes # (Manual) Eosinophils # (Manual) PT INR APTT D-Dimer Heparin Anti-Xa Level ABG pH POC ABG pCO2 POC ABG pO2 57.3 L ABG pO2 ABG HCO3 ABG O2 Saturation ABG Base Excess ABG Hemoglobin ABG Oxyhemoglobin 86.3 L ABG Sodium 129.9 L ABG Potassium ABG Chloride ABG Glucose 146 H Oxyhemoglobin Carboxyhemoglobin Sodium Potassium Chloride Carbon Dioxide BUN Creatinine Glucose 143 H POC Glucose Lactic Acid Calcium Magnesium Ferritin 07834.0 H Total Bilirubin Direct Bilirubin AST ALT Alkaline Phosphatase Lactate Dehydrogenase 1953 H C-Reactive Protein 33.50 H Total Protein Albumin Triglycerides Lipase Arterial Blood Glucose 146 H Arterial Blood Ionized Calcium 3.9 L Urine WBC (Auto) Coronavirus (PCR) SARS-CoV-2 IgG Ab Crossmatch 05/10/20 05/10/20 05/10/20 10:32 10:32 18:50 WBC 15.4 H RBC Hgb Hct MCV 97 H MCH 33 H MCHC RDW 13.1 L Lymph % (Auto) Lymph # (Auto) [place] # (Auto) Baso # (Auto) Seg Neutrophils % Seg Neuts % (Manual) 89.0 H Lymphocytes % (Manual) 8.0 L Nucleated RBC % Seg Neutrophils # Seg Neutrophils # Man 13.7 H Lymphocytes # (Manual) Monocytes # (Manual) Eosinophils # (Manual) PT INR APTT D-Dimer Heparin Anti-Xa Level ABG pH POC ABG pCO2 POC ABG pO2 ABG pO2 ABG HCO3 ABG O2 Saturation ABG Base Excess ABG Hemoglobin ABG Oxyhemoglobin ABG Sodium ABG Potassium ABG Chloride ABG Glucose Oxyhemoglobin Carboxyhemoglobin Sodium 136 L Potassium Chloride 97.4 L Carbon Dioxide BUN 37 H Creatinine 1.7 H Glucose 209 H POC Glucose Lactic Acid Calcium Magnesium Ferritin > 2000.0 H Total Bilirubin Direct Bilirubin AST ALT Alkaline Phosphatase Lactate Dehydrogenase C-Reactive Protein Total Protein Albumin Triglycerides Lipase Arterial Blood Glucose Arterial Blood Ionized Calcium Urine WBC (Auto) Coronavirus (PCR) SARS-CoV-2 IgG Ab Crossmatch 05/10/20 05/10/20 05/10/20 18:50 19:00 Unknown WBC RBC Hgb Hct MCV MCH MCHC RDW Lymph % (Auto) Lymph # (Auto) [place] # (Auto) Baso # (Auto) Seg Neutrophils % Seg Neuts % (Manual) Lymphocytes % (Manual) Nucleated RBC % Seg Neutrophils # Seg Neutrophils # Man Lymphocytes # (Manual) Monocytes # (Manual) Eosinophils # (Manual) PT INR APTT D-Dimer > 90747 H Heparin Anti-Xa Level ABG pH POC ABG pCO2 POC ABG pO2 ABG pO2 ABG HCO3 ABG O2 Saturation ABG Base Excess ABG Hemoglobin ABG Oxyhemoglobin ABG Sodium ABG Potassium ABG Chloride ABG Glucose Oxyhemoglobin Carboxyhemoglobin Sodium Potassium Chloride Carbon Dioxide BUN Creatinine Glucose POC Glucose Lactic Acid Calcium Magnesium Ferritin Total Bilirubin Direct Bilirubin AST ALT Alkaline Phosphatase Lactate Dehydrogenase 1879 H C-Reactive Protein 24.80 H Total Protein Albumin Triglycerides Lipase Arterial Blood Glucose Arterial Blood Ionized Calcium Urine WBC (Auto) 11.0 H Coronavirus (PCR) SARS-CoV-2 IgG Ab Crossmatch 05/10/20 05/11/20 05/11/20 Unknown 07:30 07:30 WBC RBC Hgb Hct MCV MCH MCHC RDW Lymph % (Auto) Lymph # (Auto) [place] # (Auto) Baso # (Auto) Seg Neutrophils % Seg Neuts % (Manual) Lymphocytes % (Manual) Nucleated RBC % Seg Neutrophils # Seg Neutrophils # Man Lymphocytes # (Manual) Monocytes # (Manual) Eosinophils # (Manual) PT INR APTT D-Dimer > 2000 H Heparin Anti-Xa Level ABG pH POC ABG pCO2 POC ABG pO2 ABG pO2 ABG HCO3 ABG O2 Saturation ABG Base Excess ABG Hemoglobin ABG Oxyhemoglobin ABG Sodium ABG Potassium ABG Chloride ABG Glucose Oxyhemoglobin Carboxyhemoglobin Sodium Potassium Chloride 96.3 L Carbon Dioxide BUN 36 H Creatinine Glucose 161 H POC Glucose Lactic Acid Calcium 8.3 L Magnesium Ferritin Total Bilirubin 1.50 H Direct Bilirubin 0.6 H AST 178 H ALT 111 H Alkaline Phosphatase Lactate Dehydrogenase C-Reactive Protein Total Protein Albumin 3.0 L Triglycerides Lipase Arterial Blood Glucose Arterial Blood Ionized Calcium Urine WBC (Auto) Coronavirus (PCR) Positive A SARS-CoV-2 IgG Ab Crossmatch 05/11/20 05/11/20 05/11/20 07:30 07:30 07:30 WBC RBC Hgb Hct MCV MCH MCHC RDW Lymph % (Auto) Lymph # (Auto) [place] # (Auto) Baso # (Auto) Seg Neutrophils % Seg Neuts % (Manual) Lymphocytes % (Manual) Nucleated RBC % Seg Neutrophils # Seg Neutrophils # Man Lymphocytes # (Manual) Monocytes # (Manual) Eosinophils # (Manual) PT INR APTT D-Dimer Heparin Anti-Xa Level ABG pH POC ABG pCO2 POC ABG pO2 ABG pO2 ABG HCO3 ABG O2 Saturation ABG Base Excess ABG Hemoglobin ABG Oxyhemoglobin ABG Sodium ABG Potassium ABG Chloride ABG Glucose Oxyhemoglobin Carboxyhemoglobin Sodium Potassium Chloride Carbon Dioxide BUN Creatinine Glucose POC Glucose Lactic Acid Calcium Magnesium Ferritin 97163.0 H Total Bilirubin Direct Bilirubin AST ALT Alkaline Phosphatase Lactate Dehydrogenase 1523 H C-Reactive Protein 12.90 H Total Protein Albumin Triglycerides Lipase Arterial Blood Glucose Arterial Blood Ionized Calcium Urine WBC (Auto) Coronavirus (PCR) SARS-CoV-2 IgG Ab Reactive A Crossmatch 05/13/20 05/13/20 05/15/20 05:20 05:20 08:15 WBC RBC Hgb Hct MCV MCH MCHC RDW Lymph % (Auto) Lymph # (Auto) [place] # (Auto) Baso # (Auto) Seg Neutrophils % Seg Neuts % (Manual) Lymphocytes % (Manual) Nucleated RBC % Seg Neutrophils # Seg Neutrophils # Man Lymphocytes # (Manual) Monocytes # (Manual) Eosinophils # (Manual) PT INR APTT D-Dimer > 80863 H 5318.28 H Heparin Anti-Xa Level ABG pH POC ABG pCO2 POC ABG pO2 ABG pO2 ABG HCO3 ABG O2 Saturation ABG Base Excess ABG Hemoglobin ABG Oxyhemoglobin ABG Sodium ABG Potassium ABG Chloride ABG Glucose Oxyhemoglobin Carboxyhemoglobin Sodium Potassium Chloride Carbon Dioxide 32 H BUN 30 H Creatinine Glucose 156 H POC Glucose Lactic Acid Calcium Magnesium 2.60 H Ferritin Total Bilirubin 1.40 H Direct Bilirubin AST 121 H ALT 119 H Alkaline Phosphatase Lactate Dehydrogenase 957 H C-Reactive Protein 4.00 H Total Protein Albumin 3.0 L Triglycerides Lipase Arterial Blood Glucose Arterial Blood Ionized Calcium Urine WBC (Auto) Coronavirus (PCR) SARS-CoV-2 IgG Ab Crossmatch 05/15/20 05/15/20 05/15/20 08:15 08:15 08:15 WBC 12.4 H RBC Hgb Hct MCV 98 H MCH 33 H MCHC RDW Lymph % (Auto) 9.7 L Lymph # (Auto) [place] # (Auto) Baso # (Auto) Seg Neutrophils % 86.8 H Seg Neuts % (Manual) Lymphocytes % (Manual) Nucleated RBC % Seg Neutrophils # 10.8 H Seg Neutrophils # Man Lymphocytes # (Manual) Monocytes # (Manual) Eosinophils # (Manual) PT INR APTT D-Dimer Heparin Anti-Xa Level ABG pH POC ABG pCO2 POC ABG pO2 ABG pO2 ABG HCO3 ABG O2 Saturation ABG Base Excess ABG Hemoglobin ABG Oxyhemoglobin ABG Sodium ABG Potassium ABG Chloride ABG Glucose Oxyhemoglobin Carboxyhemoglobin Sodium Potassium Chloride 94.8 L Carbon Dioxide 32 H BUN 22 H Creatinine Glucose 115 H POC Glucose Lactic Acid Calcium 8.3 L Magnesium Ferritin 2494.0 H Total Bilirubin Direct Bilirubin AST 73 H ALT 121 H Alkaline Phosphatase Lactate Dehydrogenase 835 H C-Reactive Protein 3.40 H Total Protein 6.1 L Albumin 3.0 L Triglycerides Lipase Arterial Blood Glucose Arterial Blood Ionized Calcium Urine WBC (Auto) Coronavirus (PCR) SARS-CoV-2 IgG Ab Crossmatch 05/17/20 05/17/20 05/17/20 05:50 05:50 05:50 WBC RBC Hgb Hct MCV MCH MCHC RDW Lymph % (Auto) Lymph # (Auto) [place] # (Auto) Baso # (Auto) Seg Neutrophils % Seg Neuts % (Manual) Lymphocytes % (Manual) Nucleated RBC % Seg Neutrophils # Seg Neutrophils # Man Lymphocytes # (Manual) Monocytes # (Manual) Eosinophils # (Manual) PT INR APTT D-Dimer 2911.42 H Heparin Anti-Xa Level ABG pH POC ABG pCO2 POC ABG pO2 ABG pO2 ABG HCO3 ABG O2 Saturation ABG Base Excess ABG Hemoglobin ABG Oxyhemoglobin ABG Sodium ABG Potassium ABG Chloride ABG Glucose Oxyhemoglobin Carboxyhemoglobin Sodium 136 L Potassium Chloride 96.0 L Carbon Dioxide 34 H BUN 22 H Creatinine Glucose 140 H POC Glucose Lactic Acid Calcium Magnesium Ferritin 2082.0 H Total Bilirubin Direct Bilirubin AST ALT 75 H Alkaline Phosphatase Lactate Dehydrogenase 601 H C-Reactive Protein 2.70 H Total Protein Albumin 2.9 L Triglycerides Lipase Arterial Blood Glucose Arterial Blood Ionized Calcium Urine WBC (Auto) Coronavirus (PCR) SARS-CoV-2 IgG Ab Crossmatch 05/17/20 05/18/20 05/20/20 05:50 12:22 08:16 WBC RBC Hgb Hct MCV 98 H MCH 33 H MCHC RDW Lymph % (Auto) 8.0 L Lymph # (Auto) 0.8 L [place] # (Auto) Baso # (Auto) Seg Neutrophils % 89.3 H Seg Neuts % (Manual) Lymphocytes % (Manual) Nucleated RBC % Seg Neutrophils # 8.8 H Seg Neutrophils # Man Lymphocytes # (Manual) Monocytes # (Manual) Eosinophils # (Manual) PT INR APTT D-Dimer 1887.82 H Heparin Anti-Xa Level ABG pH POC ABG pCO2 POC ABG pO2 ABG pO2 ABG HCO3 ABG O2 Saturation ABG Base Excess ABG Hemoglobin ABG Oxyhemoglobin ABG Sodium ABG Potassium ABG Chloride ABG Glucose Oxyhemoglobin Carboxyhemoglobin Sodium Potassium Chloride Carbon Dioxide BUN Creatinine Glucose POC Glucose 178 H Lactic Acid Calcium Magnesium Ferritin Total Bilirubin Direct Bilirubin AST ALT Alkaline Phosphatase Lactate Dehydrogenase C-Reactive Protein Total Protein Albumin Triglycerides Lipase Arterial Blood Glucose Arterial Blood Ionized Calcium Urine WBC (Auto) Coronavirus (PCR) SARS-CoV-2 IgG Ab Crossmatch 05/20/20 05/20/20 05/21/20 08:16 08:16 21:10 WBC RBC Hgb Hct MCV MCH MCHC RDW Lymph % (Auto) Lymph # (Auto) [place] # (Auto) Baso # (Auto) Seg Neutrophils % Seg Neuts % (Manual) Lymphocytes % (Manual) Nucleated RBC % Seg Neutrophils # Seg Neutrophils # Man Lymphocytes # (Manual) Monocytes # (Manual) Eosinophils # (Manual) PT INR APTT D-Dimer Heparin Anti-Xa Level ABG pH 7.483 H POC ABG pCO2 POC ABG pO2 ABG pO2 50.0 L ABG HCO3 27.0 H ABG O2 Saturation 86.2 L ABG Base Excess 3.7 H ABG Hemoglobin ABG Oxyhemoglobin ABG Sodium ABG Potassium ABG Chloride ABG Glucose Oxyhemoglobin 84.2 L Carboxyhemoglobin Sodium Potassium Chloride Carbon Dioxide BUN Creatinine Glucose POC Glucose Lactic Acid Calcium Magnesium Ferritin 1960.0 H Total Bilirubin Direct Bilirubin AST ALT Alkaline Phosphatase Lactate Dehydrogenase 705 H C-Reactive Protein 3.10 H Total Protein Albumin Triglycerides Lipase Arterial Blood Glucose Arterial Blood Ionized Calcium Urine WBC (Auto) Coronavirus (PCR) SARS-CoV-2 IgG Ab Crossmatch 05/22/20 05/22/20 05/22/20 04:01 07:53 07:53 WBC 19.2 H RBC Hgb Hct MCV 98 H MCH 34 H MCHC RDW Lymph % (Auto) Lymph # (Auto) [place] # (Auto) Baso # (Auto) Seg Neutrophils % Seg Neuts % (Manual) 96.0 H Lymphocytes % (Manual) 1.0 L Nucleated RBC % Seg Neutrophils # Seg Neutrophils # Man 18.4 H Lymphocytes # (Manual) 0.2 L Monocytes # (Manual) Eosinophils # (Manual) PT INR APTT D-Dimer Heparin Anti-Xa Level ABG pH POC ABG pCO2 53.8 H POC ABG pO2 125.5 H ABG pO2 ABG HCO3 ABG O2 Saturation ABG Base Excess ABG Hemoglobin ABG Oxyhemoglobin ABG Sodium 131.8 L ABG Potassium 4.8 H ABG Chloride 94.0 L ABG Glucose 163 H Oxyhemoglobin Carboxyhemoglobin Sodium 131 L Potassium Chloride 93.4 L Carbon Dioxide BUN 40 H Creatinine Glucose 176 H POC Glucose Lactic Acid Calcium Magnesium 2.70 H Ferritin Total Bilirubin 1.80 H Direct Bilirubin AST 45 H ALT 116 H Alkaline Phosphatase 181 H Lactate Dehydrogenase C-Reactive Protein Total Protein Albumin 2.6 L Triglycerides Lipase Arterial Blood Glucose 163 H Arterial Blood Ionized Calcium 4.5 L Urine WBC (Auto) Coronavirus (PCR) SARS-CoV-2 IgG Ab Crossmatch 05/23/20 05/24/20 05/24/20 04:17 03:07 04:08 WBC RBC Hgb Hct MCV MCH MCHC RDW Lymph % (Auto) Lymph # (Auto) [place] # (Auto) Baso # (Auto) Seg Neutrophils % Seg Neuts % (Manual) Lymphocytes % (Manual) Nucleated RBC % Seg Neutrophils # Seg Neutrophils # Man Lymphocytes # (Manual) Monocytes # (Manual) Eosinophils # (Manual) PT INR APTT D-Dimer Heparin Anti-Xa Level ABG pH 7.328 L POC ABG pCO2 POC ABG pO2 ABG pO2 72.8 L 73.4 L ABG HCO3 31.0 H 34.0 H ABG O2 Saturation 93.5 L ABG Base Excess 3.5 H 7.7 H ABG Hemoglobin 13.3 L 12.1 L ABG Oxyhemoglobin ABG Sodium ABG Potassium ABG Chloride ABG Glucose Oxyhemoglobin 91.5 L 94.3 L Carboxyhemoglobin Sodium Potassium Chloride Carbon Dioxide BUN Creatinine Glucose POC Glucose 155 H Lactic Acid Calcium Magnesium Ferritin Total Bilirubin Direct Bilirubin AST ALT Alkaline Phosphatase Lactate Dehydrogenase C-Reactive Protein Total Protein Albumin Triglycerides Lipase Arterial Blood Glucose Arterial Blood Ionized Calcium Urine WBC (Auto) Coronavirus (PCR) SARS-CoV-2 IgG Ab Crossmatch 05/24/20 05/24/20 05/24/20 09:33 12:21 17:52 WBC RBC Hgb Hct MCV MCH MCHC RDW Lymph % (Auto) Lymph # (Auto) [place] # (Auto) Baso # (Auto) Seg Neutrophils % Seg Neuts % (Manual) Lymphocytes % (Manual) Nucleated RBC % Seg Neutrophils # Seg Neutrophils # Man Lymphocytes # (Manual) Monocytes # (Manual) Eosinophils # (Manual) PT INR APTT D-Dimer Heparin Anti-Xa Level ABG pH POC ABG pCO2 POC ABG pO2 ABG pO2 ABG HCO3 ABG O2 Saturation ABG Base Excess ABG Hemoglobin ABG Oxyhemoglobin ABG Sodium ABG Potassium ABG Chloride ABG Glucose Oxyhemoglobin Carboxyhemoglobin Sodium Potassium Chloride Carbon Dioxide 34 H D BUN 28 H Creatinine 0.7 L Glucose 168 H POC Glucose 173 H 164 H Lactic Acid Calcium Magnesium Ferritin Total Bilirubin Direct Bilirubin AST ALT Alkaline Phosphatase Lactate Dehydrogenase C-Reactive Protein Total Protein Albumin Triglycerides Lipase Arterial Blood Glucose Arterial Blood Ionized Calcium Urine WBC (Auto) Coronavirus (PCR) SARS-CoV-2 IgG Ab Crossmatch 05/24/20 05/25/20 05/25/20 23:47 04:29 05:46 WBC RBC Hgb Hct MCV MCH MCHC RDW Lymph % (Auto) Lymph # (Auto) [place] # (Auto) Baso # (Auto) Seg Neutrophils % Seg Neuts % (Manual) Lymphocytes % (Manual) Nucleated RBC % Seg Neutrophils # Seg Neutrophils # Man Lymphocytes # (Manual) Monocytes # (Manual) Eosinophils # (Manual) PT INR APTT D-Dimer Heparin Anti-Xa Level ABG pH POC ABG pCO2 68.6 H POC ABG pO2 ABG pO2 ABG HCO3 ABG O2 Saturation ABG Base Excess ABG Hemoglobin ABG Oxyhemoglobin ABG Sodium ABG Potassium 4.7 H ABG Chloride ABG Glucose 226 H Oxyhemoglobin Carboxyhemoglobin Sodium Potassium Chloride Carbon Dioxide BUN Creatinine Glucose POC Glucose 171 H 201 H Lactic Acid Calcium Magnesium Ferritin Total Bilirubin Direct Bilirubin AST ALT Alkaline Phosphatase Lactate Dehydrogenase C-Reactive Protein Total Protein Albumin Triglycerides Lipase Arterial Blood Glucose 226 H Arterial Blood Ionized Calcium Urine WBC (Auto) Coronavirus (PCR) SARS-CoV-2 IgG Ab Crossmatch 05/25/20 05/25/20 05/25/20 08:37 08:37 12:38 WBC 12.0 H RBC 3.64 L Hgb Hct MCV 99 H MCH 33 H MCHC RDW Lymph % (Auto) Lymph # (Auto) [place] # (Auto) Baso # (Auto) Seg Neutrophils % Seg Neuts % (Manual) Lymphocytes % (Manual) Nucleated RBC % Seg Neutrophils # Seg Neutrophils # Man Lymphocytes # (Manual) Monocytes # (Manual) Eosinophils # (Manual) PT INR APTT D-Dimer Heparin Anti-Xa Level ABG pH POC ABG pCO2 POC ABG pO2 ABG pO2 ABG HCO3 ABG O2 Saturation ABG Base Excess ABG Hemoglobin ABG Oxyhemoglobin ABG Sodium ABG Potassium ABG Chloride ABG Glucose Oxyhemoglobin Carboxyhemoglobin Sodium Potassium Chloride 97.3 L Carbon Dioxide 35 H BUN 25 H Creatinine 0.7 L Glucose 191 H POC Glucose 182 H Lactic Acid Calcium Magnesium Ferritin Total Bilirubin Direct Bilirubin AST ALT Alkaline Phosphatase Lactate Dehydrogenase C-Reactive Protein Total Protein Albumin Triglycerides Lipase Arterial Blood Glucose Arterial Blood Ionized Calcium Urine WBC (Auto) Coronavirus (PCR) SARS-CoV-2 IgG Ab Crossmatch 05/25/20 05/26/20 05/26/20 18:16 00:06 04:50 WBC RBC Hgb Hct MCV MCH MCHC RDW Lymph % (Auto) Lymph # (Auto) [place] # (Auto) Baso # (Auto) Seg Neutrophils % Seg Neuts % (Manual) Lymphocytes % (Manual) Nucleated RBC % Seg Neutrophils # Seg Neutrophils # Man Lymphocytes # (Manual) Monocytes # (Manual) Eosinophils # (Manual) PT INR APTT D-Dimer Heparin Anti-Xa Level ABG pH POC ABG pCO2 POC ABG pO2 ABG pO2 221.5 H ABG HCO3 40.4 H ABG O2 Saturation 99.3 H ABG Base Excess 12.8 H ABG Hemoglobin 10.4 L ABG Oxyhemoglobin ABG Sodium ABG Potassium ABG Chloride ABG Glucose Oxyhemoglobin Carboxyhemoglobin Sodium Potassium Chloride Carbon Dioxide BUN Creatinine Glucose POC Glucose 176 H 152 H Lactic Acid Calcium Magnesium Ferritin Total Bilirubin Direct Bilirubin AST ALT Alkaline Phosphatase Lactate Dehydrogenase C-Reactive Protein Total Protein Albumin Triglycerides Lipase Arterial Blood Glucose Arterial Blood Ionized Calcium Urine WBC (Auto) Coronavirus (PCR) SARS-CoV-2 IgG Ab Crossmatch 05/26/20 05/26/20 05/26/20 06:11 07:51 07:51 WBC 13.4 H RBC 3.64 L Hgb Hct MCV 98 H MCH 33 H MCHC RDW Lymph % (Auto) Lymph # (Auto) [place] # (Auto) Baso # (Auto) Seg Neutrophils % Seg Neuts % (Manual) Lymphocytes % (Manual) Nucleated RBC % Seg Neutrophils # Seg Neutrophils # Man Lymphocytes # (Manual) Monocytes # (Manual) Eosinophils # (Manual) PT INR APTT D-Dimer Heparin Anti-Xa Level ABG pH POC ABG pCO2 POC ABG pO2 ABG pO2 ABG HCO3 ABG O2 Saturation ABG Base Excess ABG Hemoglobin ABG Oxyhemoglobin ABG Sodium ABG Potassium ABG Chloride ABG Glucose Oxyhemoglobin Carboxyhemoglobin Sodium Potassium Chloride 96.6 L Carbon Dioxide 39 H BUN 29 H Creatinine 0.7 L Glucose 174 H POC Glucose 165 H Lactic Acid Calcium Magnesium Ferritin Total Bilirubin Direct Bilirubin AST ALT Alkaline Phosphatase Lactate Dehydrogenase C-Reactive Protein Total Protein Albumin Triglycerides Lipase Arterial Blood Glucose Arterial Blood Ionized Calcium Urine WBC (Auto) Coronavirus (PCR) SARS-CoV-2 IgG Ab Crossmatch 05/26/20 05/27/20 05/27/20 23:23 03:43 05:29 WBC RBC Hgb Hct MCV MCH MCHC RDW Lymph % (Auto) Lymph # (Auto) [place] # (Auto) Baso # (Auto) Seg Neutrophils % Seg Neuts % (Manual) Lymphocytes % (Manual) Nucleated RBC % Seg Neutrophils # Seg Neutrophils # Man Lymphocytes # (Manual) Monocytes # (Manual) Eosinophils # (Manual) PT INR APTT D-Dimer Heparin Anti-Xa Level ABG pH 7.480 H POC ABG pCO2 52.4 H POC ABG pO2 61.4 L ABG pO2 ABG HCO3 ABG O2 Saturation ABG Base Excess ABG Hemoglobin ABG Oxyhemoglobin ABG Sodium 134.9 L ABG Potassium ABG Chloride 95.0 L ABG Glucose 221 H Oxyhemoglobin Carboxyhemoglobin Sodium Potassium Chloride Carbon Dioxide BUN Creatinine Glucose POC Glucose 169 H 227 H Lactic Acid Calcium Magnesium Ferritin Total Bilirubin Direct Bilirubin AST ALT Alkaline Phosphatase Lactate Dehydrogenase C-Reactive Protein Total Protein Albumin Triglycerides Lipase Arterial Blood Glucose 221 H Arterial Blood Ionized Calcium 4.5 L Urine WBC (Auto) Coronavirus (PCR) SARS-CoV-2 IgG Ab Crossmatch 05/27/20 05/27/20 05/27/20 07:19 12:18 13:50 WBC RBC Hgb Hct MCV MCH MCHC RDW Lymph % (Auto) Lymph # (Auto) [place] # (Auto) Baso # (Auto) Seg Neutrophils % Seg Neuts % (Manual) Lymphocytes % (Manual) Nucleated RBC % Seg Neutrophils # Seg Neutrophils # Man Lymphocytes # (Manual) Monocytes # (Manual) Eosinophils # (Manual) PT INR APTT D-Dimer Heparin Anti-Xa Level ABG pH POC ABG pCO2 POC ABG pO2 ABG pO2 ABG HCO3 ABG O2 Saturation ABG Base Excess ABG Hemoglobin ABG Oxyhemoglobin ABG Sodium ABG Potassium ABG Chloride ABG Glucose Oxyhemoglobin Carboxyhemoglobin Sodium Potassium Chloride Carbon Dioxide BUN Creatinine Glucose POC Glucose 114 H 148 H Lactic Acid Calcium Magnesium Ferritin Total Bilirubin Direct Bilirubin AST ALT Alkaline Phosphatase Lactate Dehydrogenase C-Reactive Protein Total Protein Albumin Triglycerides 247 H Lipase Arterial Blood Glucose Arterial Blood Ionized Calcium Urine WBC (Auto) Coronavirus (PCR) SARS-CoV-2 IgG Ab Crossmatch 05/28/20 05/28/20 05/28/20 00:13 04:16 05:22 WBC RBC Hgb Hct MCV MCH MCHC RDW Lymph % (Auto) Lymph # (Auto) [place] # (Auto) Baso # (Auto) Seg Neutrophils % Seg Neuts % (Manual) Lymphocytes % (Manual) Nucleated RBC % Seg Neutrophils # Seg Neutrophils # Man Lymphocytes # (Manual) Monocytes # (Manual) Eosinophils # (Manual) PT INR APTT D-Dimer Heparin Anti-Xa Level ABG pH POC ABG pCO2 64.4 H POC ABG pO2 60.5 L ABG pO2 ABG HCO3 ABG O2 Saturation ABG Base Excess ABG Hemoglobin ABG Oxyhemoglobin ABG Sodium ABG Potassium ABG Chloride 95.0 L ABG Glucose 209 H Oxyhemoglobin Carboxyhemoglobin Sodium Potassium Chloride Carbon Dioxide BUN Creatinine Glucose POC Glucose 155 H 186 H Lactic Acid Calcium Magnesium Ferritin Total Bilirubin Direct Bilirubin AST ALT Alkaline Phosphatase Lactate Dehydrogenase C-Reactive Protein Total Protein Albumin Triglycerides Lipase Arterial Blood Glucose 209 H Arterial Blood Ionized Calcium Urine WBC (Auto) Coronavirus (PCR) SARS-CoV-2 IgG Ab Crossmatch 05/28/20 05/28/20 05/29/20 12:45 17:39 00:37 WBC RBC Hgb Hct MCV MCH MCHC RDW Lymph % (Auto) Lymph # (Auto) [place] # (Auto) Baso # (Auto) Seg Neutrophils % Seg Neuts % (Manual) Lymphocytes % (Manual) Nucleated RBC % Seg Neutrophils # Seg Neutrophils # Man Lymphocytes # (Manual) Monocytes # (Manual) Eosinophils # (Manual) PT INR APTT D-Dimer Heparin Anti-Xa Level ABG pH POC ABG pCO2 POC ABG pO2 ABG pO2 ABG HCO3 ABG O2 Saturation ABG Base Excess ABG Hemoglobin ABG Oxyhemoglobin ABG Sodium ABG Potassium ABG Chloride ABG Glucose Oxyhemoglobin Carboxyhemoglobin Sodium Potassium Chloride Carbon Dioxide BUN Creatinine Glucose POC Glucose 143 H 164 H 221 H Lactic Acid Calcium Magnesium Ferritin Total Bilirubin Direct Bilirubin AST ALT Alkaline Phosphatase Lactate Dehydrogenase C-Reactive Protein Total Protein Albumin Triglycerides Lipase Arterial Blood Glucose Arterial Blood Ionized Calcium Urine WBC (Auto) Coronavirus (PCR) SARS-CoV-2 IgG Ab Crossmatch 05/29/20 05/29/20 05/29/20 04:15 05:33 12:34 WBC RBC Hgb Hct MCV MCH MCHC RDW Lymph % (Auto) Lymph # (Auto) [place] # (Auto) Baso # (Auto) Seg Neutrophils % Seg Neuts % (Manual) Lymphocytes % (Manual) Nucleated RBC % Seg Neutrophils # Seg Neutrophils # Man Lymphocytes # (Manual) Monocytes # (Manual) Eosinophils # (Manual) PT INR APTT D-Dimer Heparin Anti-Xa Level ABG pH 7.463 H POC ABG pCO2 56.3 H POC ABG pO2 81.2 L ABG pO2 ABG HCO3 ABG O2 Saturation ABG Base Excess ABG Hemoglobin ABG Oxyhemoglobin ABG Sodium ABG Potassium ABG Chloride 96.0 L ABG Glucose 194 H Oxyhemoglobin Carboxyhemoglobin Sodium Potassium Chloride Carbon Dioxide BUN Creatinine Glucose POC Glucose 133 H 221 H Lactic Acid Calcium Magnesium Ferritin Total Bilirubin Direct Bilirubin AST ALT Alkaline Phosphatase Lactate Dehydrogenase C-Reactive Protein Total Protein Albumin Triglycerides Lipase Arterial Blood Glucose 194 H Arterial Blood Ionized Calcium 4.5 L Urine WBC (Auto) Coronavirus (PCR) SARS-CoV-2 IgG Ab Crossmatch 05/29/20 05/30/20 05/30/20 18:07 00:12 05:38 WBC RBC Hgb Hct MCV MCH MCHC RDW Lymph % (Auto) Lymph # (Auto) [place] # (Auto) Baso # (Auto) Seg Neutrophils % Seg Neuts % (Manual) Lymphocytes % (Manual) Nucleated RBC % Seg Neutrophils # Seg Neutrophils # Man Lymphocytes # (Manual) Monocytes # (Manual) Eosinophils # (Manual) PT INR APTT D-Dimer Heparin Anti-Xa Level ABG pH POC ABG pCO2 POC ABG pO2 ABG pO2 ABG HCO3 ABG O2 Saturation ABG Base Excess ABG Hemoglobin ABG Oxyhemoglobin ABG Sodium ABG Potassium ABG Chloride ABG Glucose Oxyhemoglobin Carboxyhemoglobin Sodium Potassium Chloride Carbon Dioxide BUN Creatinine Glucose POC Glucose 162 H 190 H 208 H Lactic Acid Calcium Magnesium Ferritin Total Bilirubin Direct Bilirubin AST ALT Alkaline Phosphatase Lactate Dehydrogenase C-Reactive Protein Total Protein Albumin Triglycerides Lipase Arterial Blood Glucose Arterial Blood Ionized Calcium Urine WBC (Auto) Coronavirus (PCR) SARS-CoV-2 IgG Ab Crossmatch 05/30/20 05/30/20 05/30/20 09:30 11:35 11:54 WBC 12.4 H RBC 3.48 L Hgb 11.3 L Hct 34.6 L MCV 99 H MCH 33 H MCHC RDW Lymph % (Auto) Lymph # (Auto) [place] # (Auto) Baso # (Auto) Seg Neutrophils % Seg Neuts % (Manual) Lymphocytes % (Manual) Nucleated RBC % Seg Neutrophils # Seg Neutrophils # Man Lymphocytes # (Manual) Monocytes # (Manual) Eosinophils # (Manual) PT INR APTT D-Dimer Heparin Anti-Xa Level ABG pH 7.455 H POC ABG pCO2 57.5 H POC ABG pO2 81.5 L ABG pO2 ABG HCO3 ABG O2 Saturation ABG Base Excess ABG Hemoglobin ABG Oxyhemoglobin ABG Sodium ABG Potassium ABG Chloride 96.0 L ABG Glucose 204 H Oxyhemoglobin Carboxyhemoglobin Sodium Potassium Chloride Carbon Dioxide BUN Creatinine Glucose POC Glucose 183 H Lactic Acid Calcium Magnesium Ferritin Total Bilirubin Direct Bilirubin AST ALT Alkaline Phosphatase Lactate Dehydrogenase C-Reactive Protein Total Protein Albumin Triglycerides Lipase Arterial Blood Glucose 204 H Arterial Blood Ionized Calcium Urine WBC (Auto) Coronavirus (PCR) SARS-CoV-2 IgG Ab Crossmatch 05/30/20 05/31/20 05/31/20 18:01 00:10 03:22 WBC RBC Hgb Hct MCV MCH MCHC RDW Lymph % (Auto) Lymph # (Auto) [place] # (Auto) Baso # (Auto) Seg Neutrophils % Seg Neuts % (Manual) Lymphocytes % (Manual) Nucleated RBC % Seg Neutrophils # Seg Neutrophils # Man Lymphocytes # (Manual) Monocytes # (Manual) Eosinophils # (Manual) PT INR APTT D-Dimer Heparin Anti-Xa Level ABG pH POC ABG pCO2 60.4 H POC ABG pO2 71.5 L ABG pO2 ABG HCO3 ABG O2 Saturation ABG Base Excess ABG Hemoglobin ABG Oxyhemoglobin ABG Sodium ABG Potassium ABG Chloride 96.0 L ABG Glucose 169 H Oxyhemoglobin Carboxyhemoglobin Sodium Potassium Chloride Carbon Dioxide BUN Creatinine Glucose POC Glucose 184 H 135 H Lactic Acid Calcium Magnesium Ferritin Total Bilirubin Direct Bilirubin AST ALT Alkaline Phosphatase Lactate Dehydrogenase C-Reactive Protein Total Protein Albumin Triglycerides Lipase Arterial Blood Glucose 169 H Arterial Blood Ionized Calcium 4.5 L Urine WBC (Auto) Coronavirus (PCR) SARS-CoV-2 IgG Ab Crossmatch 05/31/20 05/31/20 05/31/20 05:24 11:18 14:41 WBC RBC Hgb Hct MCV MCH MCHC RDW Lymph % (Auto) Lymph # (Auto) [place] # (Auto) Baso # (Auto) Seg Neutrophils % Seg Neuts % (Manual) Lymphocytes % (Manual) Nucleated RBC % Seg Neutrophils # Seg Neutrophils # Man Lymphocytes # (Manual) Monocytes # (Manual) Eosinophils # (Manual) PT INR APTT D-Dimer Heparin Anti-Xa Level ABG pH POC ABG pCO2 POC ABG pO2 ABG pO2 ABG HCO3 ABG O2 Saturation ABG Base Excess ABG Hemoglobin ABG Oxyhemoglobin ABG Sodium ABG Potassium ABG Chloride ABG Glucose Oxyhemoglobin Carboxyhemoglobin Sodium Potassium Chloride 96.8 L Carbon Dioxide 37 H BUN 31 H Creatinine 0.6 L Glucose 213 H POC Glucose 164 H 208 H Lactic Acid Calcium Magnesium Ferritin Total Bilirubin Direct Bilirubin AST ALT Alkaline Phosphatase Lactate Dehydrogenase C-Reactive Protein Total Protein Albumin Triglycerides Lipase Arterial Blood Glucose Arterial Blood Ionized Calcium Urine WBC (Auto) Coronavirus (PCR) SARS-CoV-2 IgG Ab Crossmatch 05/31/20 05/31/20 06/01/20 17:37 23:47 03:48 WBC RBC Hgb Hct MCV MCH MCHC RDW Lymph % (Auto) Lymph # (Auto) [place] # (Auto) Baso # (Auto) Seg Neutrophils % Seg Neuts % (Manual) Lymphocytes % (Manual) Nucleated RBC % Seg Neutrophils # Seg Neutrophils # Man Lymphocytes # (Manual) Monocytes # (Manual) Eosinophils # (Manual) PT INR APTT D-Dimer Heparin Anti-Xa Level ABG pH POC ABG pCO2 59.7 H POC ABG pO2 73.9 L ABG pO2 ABG HCO3 ABG O2 Saturation ABG Base Excess ABG Hemoglobin ABG Oxyhemoglobin ABG Sodium ABG Potassium ABG Chloride 95.0 L ABG Glucose 256 H Oxyhemoglobin Carboxyhemoglobin Sodium Potassium Chloride Carbon Dioxide BUN Creatinine Glucose POC Glucose 168 H 178 H Lactic Acid Calcium Magnesium Ferritin Total Bilirubin Direct Bilirubin AST ALT Alkaline Phosphatase Lactate Dehydrogenase C-Reactive Protein Total Protein Albumin Triglycerides Lipase Arterial Blood Glucose 256 H Arterial Blood Ionized Calcium Urine WBC (Auto) Coronavirus (PCR) SARS-CoV-2 IgG Ab Crossmatch 06/01/20 06/01/20 06/01/20 05:01 07:47 07:47 WBC 14.4 H RBC 3.46 L Hgb 11.1 L Hct 34.3 L MCV 99 H MCH MCHC RDW Lymph % (Auto) Lymph # (Auto) [place] # (Auto) Baso # (Auto) Seg Neutrophils % Seg Neuts % (Manual) 86.0 H Lymphocytes % (Manual) 9.0 L Nucleated RBC % Seg Neutrophils # Seg Neutrophils # Man 12.4 H Lymphocytes # (Manual) Monocytes # (Manual) Eosinophils # (Manual) PT INR APTT D-Dimer Heparin Anti-Xa Level ABG pH POC ABG pCO2 POC ABG pO2 ABG pO2 ABG HCO3 ABG O2 Saturation ABG Base Excess ABG Hemoglobin ABG Oxyhemoglobin ABG Sodium ABG Potassium ABG Chloride ABG Glucose Oxyhemoglobin Carboxyhemoglobin Sodium Potassium Chloride Carbon Dioxide BUN Creatinine Glucose POC Glucose 197 H Lactic Acid Calcium Magnesium Ferritin Total Bilirubin Direct Bilirubin AST ALT Alkaline Phosphatase Lactate Dehydrogenase C-Reactive Protein Total Protein Albumin Triglycerides 244 H Lipase Arterial Blood Glucose Arterial Blood Ionized Calcium Urine WBC (Auto) Coronavirus (PCR) SARS-CoV-2 IgG Ab Crossmatch 06/01/20 06/01/20 06/01/20 07:47 11:46 18:15 WBC RBC Hgb Hct MCV MCH MCHC RDW Lymph % (Auto) Lymph # (Auto) [place] # (Auto) Baso # (Auto) Seg Neutrophils % Seg Neuts % (Manual) Lymphocytes % (Manual) Nucleated RBC % Seg Neutrophils # Seg Neutrophils # Man Lymphocytes # (Manual) Monocytes # (Manual) Eosinophils # (Manual) PT INR APTT D-Dimer Heparin Anti-Xa Level ABG pH POC ABG pCO2 POC ABG pO2 ABG pO2 ABG HCO3 ABG O2 Saturation ABG Base Excess ABG Hemoglobin ABG Oxyhemoglobin ABG Sodium ABG Potassium ABG Chloride ABG Glucose Oxyhemoglobin Carboxyhemoglobin Sodium Potassium Chloride 95.4 L Carbon Dioxide 35 H BUN 30 H Creatinine 0.5 L Glucose 214 H POC Glucose 181 H 221 H Lactic Acid Calcium Magnesium Ferritin Total Bilirubin Direct Bilirubin AST 54 H ALT 235 H Alkaline Phosphatase Lactate Dehydrogenase C-Reactive Protein Total Protein Albumin 2.9 L Triglycerides Lipase Arterial Blood Glucose Arterial Blood Ionized Calcium Urine WBC (Auto) Coronavirus (PCR) SARS-CoV-2 IgG Ab Crossmatch 06/01/20 06/02/20 06/02/20 23:12 04:00 05:31 WBC RBC Hgb Hct MCV MCH MCHC RDW Lymph % (Auto) Lymph # (Auto) [place] # (Auto) Baso # (Auto) Seg Neutrophils % Seg Neuts % (Manual) Lymphocytes % (Manual) Nucleated RBC % Seg Neutrophils # Seg Neutrophils # Man Lymphocytes # (Manual) Monocytes # (Manual) Eosinophils # (Manual) PT INR APTT D-Dimer Heparin Anti-Xa Level ABG pH 7.465 H POC ABG pCO2 POC ABG pO2 ABG pO2 203.4 H ABG HCO3 41.2 H ABG O2 Saturation 99.3 H ABG Base Excess 15.1 H ABG Hemoglobin 11.5 L ABG Oxyhemoglobin ABG Sodium ABG Potassium ABG Chloride ABG Glucose Oxyhemoglobin Carboxyhemoglobin Sodium Potassium Chloride Carbon Dioxide BUN Creatinine Glucose POC Glucose 197 H 184 H Lactic Acid Calcium Magnesium Ferritin Total Bilirubin Direct Bilirubin AST ALT Alkaline Phosphatase Lactate Dehydrogenase C-Reactive Protein Total Protein Albumin Triglycerides Lipase Arterial Blood Glucose Arterial Blood Ionized Calcium Urine WBC (Auto) Coronavirus (PCR) SARS-CoV-2 IgG Ab Crossmatch 06/02/20 06/02/20 06/02/20 11:49 18:06 23:00 WBC RBC Hgb Hct MCV MCH MCHC RDW Lymph % (Auto) Lymph # (Auto) [place] # (Auto) Baso # (Auto) Seg Neutrophils % Seg Neuts % (Manual) Lymphocytes % (Manual) Nucleated RBC % Seg Neutrophils # Seg Neutrophils # Man Lymphocytes # (Manual) Monocytes # (Manual) Eosinophils # (Manual) PT INR APTT D-Dimer Heparin Anti-Xa Level ABG pH POC ABG pCO2 POC ABG pO2 ABG pO2 ABG HCO3 ABG O2 Saturation ABG Base Excess ABG Hemoglobin ABG Oxyhemoglobin ABG Sodium ABG Potassium ABG Chloride ABG Glucose Oxyhemoglobin Carboxyhemoglobin Sodium Potassium Chloride Carbon Dioxide BUN Creatinine Glucose POC Glucose 195 H 177 H 228 H Lactic Acid Calcium Magnesium Ferritin Total Bilirubin Direct Bilirubin AST ALT Alkaline Phosphatase Lactate Dehydrogenase C-Reactive Protein Total Protein Albumin Triglycerides Lipase Arterial Blood Glucose Arterial Blood Ionized Calcium Urine WBC (Auto) Coronavirus (PCR) SARS-CoV-2 IgG Ab Crossmatch 06/03/20 06/03/20 06/03/20 03:58 05:19 12:21 WBC RBC Hgb Hct MCV MCH MCHC RDW Lymph % (Auto) Lymph # (Auto) [place] # (Auto) Baso # (Auto) Seg Neutrophils % Seg Neuts % (Manual) Lymphocytes % (Manual) Nucleated RBC % Seg Neutrophils # Seg Neutrophils # Man Lymphocytes # (Manual) Monocytes # (Manual) Eosinophils # (Manual) PT INR APTT D-Dimer Heparin Anti-Xa Level ABG pH POC ABG pCO2 POC ABG pO2 ABG pO2 171.0 H ABG HCO3 42.8 H ABG O2 Saturation ABG Base Excess 15.6 H ABG Hemoglobin 12.3 L ABG Oxyhemoglobin ABG Sodium ABG Potassium ABG Chloride ABG Glucose Oxyhemoglobin Carboxyhemoglobin Sodium Potassium Chloride Carbon Dioxide BUN Creatinine Glucose POC Glucose 122 H 207 H Lactic Acid Calcium Magnesium Ferritin Total Bilirubin Direct Bilirubin AST ALT Alkaline Phosphatase Lactate Dehydrogenase C-Reactive Protein Total Protein Albumin Triglycerides Lipase Arterial Blood Glucose Arterial Blood Ionized Calcium Urine WBC (Auto) Coronavirus (PCR) SARS-CoV-2 IgG Ab Crossmatch 06/03/20 06/03/20 06/04/20 17:27 23:50 03:55 WBC RBC Hgb Hct MCV MCH MCHC RDW Lymph % (Auto) Lymph # (Auto) [place] # (Auto) Baso # (Auto) Seg Neutrophils % Seg Neuts % (Manual) Lymphocytes % (Manual) Nucleated RBC % Seg Neutrophils # Seg Neutrophils # Man Lymphocytes # (Manual) Monocytes # (Manual) Eosinophils # (Manual) PT INR APTT D-Dimer Heparin Anti-Xa Level ABG pH POC ABG pCO2 POC ABG pO2 ABG pO2 117.2 H ABG HCO3 42.4 H ABG O2 Saturation ABG Base Excess 15.3 H ABG Hemoglobin 10.5 L ABG Oxyhemoglobin ABG Sodium ABG Potassium ABG Chloride ABG Glucose Oxyhemoglobin Carboxyhemoglobin Sodium Potassium Chloride Carbon Dioxide BUN Creatinine Glucose POC Glucose 157 H 214 H Lactic Acid Calcium Magnesium Ferritin Total Bilirubin Direct Bilirubin AST ALT Alkaline Phosphatase Lactate Dehydrogenase C-Reactive Protein Total Protein Albumin Triglycerides Lipase Arterial Blood Glucose Arterial Blood Ionized Calcium Urine WBC (Auto) Coronavirus (PCR) SARS-CoV-2 IgG Ab Crossmatch 06/04/20 06/04/20 06/04/20 05:49 11:41 17:30 WBC RBC Hgb Hct MCV MCH MCHC RDW Lymph % (Auto) Lymph # (Auto) [place] # (Auto) Baso # (Auto) Seg Neutrophils % Seg Neuts % (Manual) Lymphocytes % (Manual) Nucleated RBC % Seg Neutrophils # Seg Neutrophils # Man Lymphocytes # (Manual) Monocytes # (Manual) Eosinophils # (Manual) PT INR APTT D-Dimer Heparin Anti-Xa Level ABG pH POC ABG pCO2 POC ABG pO2 ABG pO2 ABG HCO3 ABG O2 Saturation ABG Base Excess ABG Hemoglobin ABG Oxyhemoglobin ABG Sodium ABG Potassium ABG Chloride ABG Glucose Oxyhemoglobin Carboxyhemoglobin Sodium Potassium Chloride Carbon Dioxide BUN Creatinine Glucose POC Glucose 149 H 233 H 156 H Lactic Acid Calcium Magnesium Ferritin Total Bilirubin Direct Bilirubin AST ALT Alkaline Phosphatase Lactate Dehydrogenase C-Reactive Protein Total Protein Albumin Triglycerides Lipase Arterial Blood Glucose Arterial Blood Ionized Calcium Urine WBC (Auto) Coronavirus (PCR) SARS-CoV-2 IgG Ab Crossmatch 06/04/20 06/04/20 06/04/20 19:01 20:53 23:41 WBC RBC 3.18 L Hgb 10.8 L Hct 31.8 L MCV 100 H MCH 34 H MCHC RDW Lymph % (Auto) Lymph # (Auto) [place] # (Auto) Baso # (Auto) Seg Neutrophils % Seg Neuts % (Manual) 86.0 H Lymphocytes % (Manual) 10.0 L Nucleated RBC % 1.0 H Seg Neutrophils # Seg Neutrophils # Man 8.5 H Lymphocytes # (Manual) 1.0 L Monocytes # (Manual) Eosinophils # (Manual) PT INR APTT D-Dimer Heparin Anti-Xa Level ABG pH POC ABG pCO2 POC ABG pO2 ABG pO2 ABG HCO3 ABG O2 Saturation ABG Base Excess ABG Hemoglobin ABG Oxyhemoglobin ABG Sodium ABG Potassium ABG Chloride ABG Glucose Oxyhemoglobin Carboxyhemoglobin Sodium Potassium 3.4 L D Chloride 96.5 L Carbon Dioxide 41 H* BUN 27 H Creatinine 0.5 L Glucose 173 H POC Glucose 217 H Lactic Acid Calcium Magnesium Ferritin Total Bilirubin Direct Bilirubin AST ALT Alkaline Phosphatase Lactate Dehydrogenase C-Reactive Protein Total Protein Albumin Triglycerides Lipase Arterial Blood Glucose Arterial Blood Ionized Calcium Urine WBC (Auto) Coronavirus (PCR) SARS-CoV-2 IgG Ab Crossmatch 06/05/20 06/05/20 06/05/20 06:05 11:54 12:35 WBC RBC Hgb Hct MCV MCH MCHC RDW Lymph % (Auto) Lymph # (Auto) [place] # (Auto) Baso # (Auto) Seg Neutrophils % Seg Neuts % (Manual) Lymphocytes % (Manual) Nucleated RBC % Seg Neutrophils # Seg Neutrophils # Man Lymphocytes # (Manual) Monocytes # (Manual) Eosinophils # (Manual) PT INR APTT D-Dimer Heparin Anti-Xa Level ABG pH POC ABG pCO2 POC ABG pO2 ABG pO2 127.9 H ABG HCO3 41.1 H ABG O2 Saturation ABG Base Excess 13.0 H ABG Hemoglobin 13.4 L ABG Oxyhemoglobin ABG Sodium ABG Potassium ABG Chloride ABG Glucose Oxyhemoglobin Carboxyhemoglobin Sodium Potassium Chloride Carbon Dioxide BUN Creatinine Glucose POC Glucose 137 H 211 H Lactic Acid Calcium Magnesium Ferritin Total Bilirubin Direct Bilirubin AST ALT Alkaline Phosphatase Lactate Dehydrogenase C-Reactive Protein Total Protein Albumin Triglycerides Lipase Arterial Blood Glucose Arterial Blood Ionized Calcium Urine WBC (Auto) Coronavirus (PCR) SARS-CoV-2 IgG Ab Crossmatch 06/05/20 06/05/20 06/06/20 17:03 23:49 04:42 WBC RBC Hgb Hct MCV MCH MCHC RDW Lymph % (Auto) Lymph # (Auto) [place] # (Auto) Baso # (Auto) Seg Neutrophils % Seg Neuts % (Manual) Lymphocytes % (Manual) Nucleated RBC % Seg Neutrophils # Seg Neutrophils # Man Lymphocytes # (Manual) Monocytes # (Manual) Eosinophils # (Manual) PT INR APTT D-Dimer Heparin Anti-Xa Level ABG pH POC ABG pCO2 56.1 H POC ABG pO2 52.5 L ABG pO2 ABG HCO3 ABG O2 Saturation ABG Base Excess ABG Hemoglobin 11.7 L ABG Oxyhemoglobin ABG Sodium ABG Potassium 3.3 L ABG Chloride 95.0 L ABG Glucose 156 H Oxyhemoglobin Carboxyhemoglobin Sodium Potassium Chloride Carbon Dioxide BUN Creatinine Glucose POC Glucose 159 H 194 H Lactic Acid Calcium Magnesium Ferritin Total Bilirubin Direct Bilirubin AST ALT Alkaline Phosphatase Lactate Dehydrogenase C-Reactive Protein Total Protein Albumin Triglycerides Lipase Arterial Blood Glucose 156 H Arterial Blood Ionized Calcium Urine WBC (Auto) Coronavirus (PCR) SARS-CoV-2 IgG Ab Crossmatch 06/06/20 06/06/20 06/06/20 05:57 12:06 17:38 WBC RBC Hgb Hct MCV MCH MCHC RDW Lymph % (Auto) Lymph # (Auto) [place] # (Auto) Baso # (Auto) Seg Neutrophils % Seg Neuts % (Manual) Lymphocytes % (Manual) Nucleated RBC % Seg Neutrophils # Seg Neutrophils # Man Lymphocytes # (Manual) Monocytes # (Manual) Eosinophils # (Manual) PT INR APTT D-Dimer Heparin Anti-Xa Level ABG pH POC ABG pCO2 POC ABG pO2 ABG pO2 ABG HCO3 ABG O2 Saturation ABG Base Excess ABG Hemoglobin ABG Oxyhemoglobin ABG Sodium ABG Potassium ABG Chloride ABG Glucose Oxyhemoglobin Carboxyhemoglobin Sodium Potassium Chloride Carbon Dioxide BUN Creatinine Glucose POC Glucose 144 H 230 H 162 H Lactic Acid Calcium Magnesium Ferritin Total Bilirubin Direct Bilirubin AST ALT Alkaline Phosphatase Lactate Dehydrogenase C-Reactive Protein Total Protein Albumin Triglycerides Lipase Arterial Blood Glucose Arterial Blood Ionized Calcium Urine WBC (Auto) Coronavirus (PCR) SARS-CoV-2 IgG Ab Crossmatch 06/06/20 06/07/20 06/07/20 23:50 04:34 06:03 WBC RBC Hgb Hct MCV MCH MCHC RDW Lymph % (Auto) Lymph # (Auto) [place] # (Auto) Baso # (Auto) Seg Neutrophils % Seg Neuts % (Manual) Lymphocytes % (Manual) Nucleated RBC % Seg Neutrophils # Seg Neutrophils # Man Lymphocytes # (Manual) Monocytes # (Manual) Eosinophils # (Manual) PT INR APTT D-Dimer Heparin Anti-Xa Level ABG pH 7.511 H POC ABG pCO2 53.5 H POC ABG pO2 114.5 H ABG pO2 ABG HCO3 ABG O2 Saturation ABG Base Excess ABG Hemoglobin 9.4 L ABG Oxyhemoglobin ABG Sodium 134.5 L ABG Potassium ABG Chloride 94.0 L ABG Glucose 186 H Oxyhemoglobin Carboxyhemoglobin Sodium Potassium Chloride Carbon Dioxide BUN Creatinine Glucose POC Glucose 181 H 155 H Lactic Acid Calcium Magnesium Ferritin Total Bilirubin Direct Bilirubin AST ALT Alkaline Phosphatase Lactate Dehydrogenase C-Reactive Protein Total Protein Albumin Triglycerides Lipase Arterial Blood Glucose 186 H Arterial Blood Ionized Calcium 4.5 L Urine WBC (Auto) Coronavirus (PCR) SARS-CoV-2 IgG Ab Crossmatch 06/07/20 06/07/20 06/07/20 13:41 14:58 14:58 WBC RBC 2.72 L Hgb 9.3 L Hct 27.2 L MCV 100 H MCH 34 H MCHC RDW Lymph % (Auto) Lymph # (Auto) [place] # (Auto) Baso # (Auto) Seg Neutrophils % Seg Neuts % (Manual) Lymphocytes % (Manual) Nucleated RBC % Seg Neutrophils # Seg Neutrophils # Man Lymphocytes # (Manual) Monocytes # (Manual) Eosinophils # (Manual) PT INR APTT D-Dimer Heparin Anti-Xa Level ABG pH POC ABG pCO2 POC ABG pO2 ABG pO2 ABG HCO3 ABG O2 Saturation ABG Base Excess ABG Hemoglobin ABG Oxyhemoglobin ABG Sodium ABG Potassium ABG Chloride ABG Glucose Oxyhemoglobin Carboxyhemoglobin Sodium Potassium Chloride 93.5 L Carbon Dioxide 39 H BUN 22 H Creatinine 0.4 L Glucose 188 H POC Glucose 201 H Lactic Acid Calcium Magnesium Ferritin Total Bilirubin Direct Bilirubin AST 61 H ALT 273 H Alkaline Phosphatase Lactate Dehydrogenase C-Reactive Protein Total Protein 5.9 L Albumin 2.7 L Triglycerides Lipase Arterial Blood Glucose Arterial Blood Ionized Calcium Urine WBC (Auto) Coronavirus (PCR) SARS-CoV-2 IgG Ab Crossmatch 06/07/20 06/08/20 06/08/20 23:18 05:31 12:07 WBC RBC Hgb Hct MCV MCH MCHC RDW Lymph % (Auto) Lymph # (Auto) [place] # (Auto) Baso # (Auto) Seg Neutrophils % Seg Neuts % (Manual) Lymphocytes % (Manual) Nucleated RBC % Seg Neutrophils # Seg Neutrophils # Man Lymphocytes # (Manual) Monocytes # (Manual) Eosinophils # (Manual) PT INR APTT D-Dimer Heparin Anti-Xa Level ABG pH POC ABG pCO2 POC ABG pO2 ABG pO2 ABG HCO3 ABG O2 Saturation ABG Base Excess ABG Hemoglobin ABG Oxyhemoglobin ABG Sodium ABG Potassium ABG Chloride ABG Glucose Oxyhemoglobin Carboxyhemoglobin Sodium Potassium Chloride Carbon Dioxide BUN Creatinine Glucose POC Glucose 214 H 129 H 179 H Lactic Acid Calcium Magnesium Ferritin Total Bilirubin Direct Bilirubin AST ALT Alkaline Phosphatase Lactate Dehydrogenase C-Reactive Protein Total Protein Albumin Triglycerides Lipase Arterial Blood Glucose Arterial Blood Ionized Calcium Urine WBC (Auto) Coronavirus (PCR) SARS-CoV-2 IgG Ab Crossmatch 06/08/20 06/08/20 06/09/20 18:18 23:35 05:42 WBC RBC Hgb Hct MCV MCH MCHC RDW Lymph % (Auto) Lymph # (Auto) [place] # (Auto) Baso # (Auto) Seg Neutrophils % Seg Neuts % (Manual) Lymphocytes % (Manual) Nucleated RBC % Seg Neutrophils # Seg Neutrophils # Man Lymphocytes # (Manual) Monocytes # (Manual) Eosinophils # (Manual) PT INR APTT D-Dimer Heparin Anti-Xa Level ABG pH POC ABG pCO2 POC ABG pO2 ABG pO2 ABG HCO3 ABG O2 Saturation ABG Base Excess ABG Hemoglobin ABG Oxyhemoglobin ABG Sodium ABG Potassium ABG Chloride ABG Glucose Oxyhemoglobin Carboxyhemoglobin Sodium Potassium Chloride Carbon Dioxide BUN Creatinine Glucose POC Glucose 172 H 177 H 137 H Lactic Acid Calcium Magnesium Ferritin Total Bilirubin Direct Bilirubin AST ALT Alkaline Phosphatase Lactate Dehydrogenase C-Reactive Protein Total Protein Albumin Triglycerides Lipase Arterial Blood Glucose Arterial Blood Ionized Calcium Urine WBC (Auto) Coronavirus (PCR) SARS-CoV-2 IgG Ab Crossmatch 06/09/20 06/09/20 06/09/20 06:20 07:55 07:55 WBC 12.4 H RBC 3.26 L Hgb 11.1 L Hct 33.4 L D MCV 102 H MCH 34 H MCHC RDW Lymph % (Auto) Lymph # (Auto) [place] # (Auto) Baso # (Auto) Seg Neutrophils % Seg Neuts % (Manual) Lymphocytes % (Manual) Nucleated RBC % Seg Neutrophils # Seg Neutrophils # Man Lymphocytes # (Manual) Monocytes # (Manual) Eosinophils # (Manual) PT INR APTT D-Dimer Heparin Anti-Xa Level ABG pH 7.466 H POC ABG pCO2 50.7 H POC ABG pO2 53.0 L ABG pO2 ABG HCO3 ABG O2 Saturation ABG Base Excess ABG Hemoglobin ABG Oxyhemoglobin ABG Sodium ABG Potassium 2.9 L ABG Chloride 93.0 L ABG Glucose 138 H Oxyhemoglobin Carboxyhemoglobin Sodium Potassium 3.0 L Chloride 92.3 L Carbon Dioxide 37 H BUN 21 H Creatinine 0.6 L Glucose 120 H POC Glucose Lactic Acid Calcium Magnesium Ferritin Total Bilirubin Direct Bilirubin AST ALT Alkaline Phosphatase Lactate Dehydrogenase C-Reactive Protein Total Protein Albumin Triglycerides Lipase Arterial Blood Glucose 138 H Arterial Blood Ionized Calcium 4.5 L Urine WBC (Auto) Coronavirus (PCR) SARS-CoV-2 IgG Ab Crossmatch 06/09/20 06/09/20 06/10/20 11:22 18:32 04:46 WBC RBC Hgb Hct MCV MCH MCHC RDW Lymph % (Auto) Lymph # (Auto) [place] # (Auto) Baso # (Auto) Seg Neutrophils % Seg Neuts % (Manual) Lymphocytes % (Manual) Nucleated RBC % Seg Neutrophils # Seg Neutrophils # Man Lymphocytes # (Manual) Monocytes # (Manual) Eosinophils # (Manual) PT INR APTT D-Dimer Heparin Anti-Xa Level ABG pH 7.501 H POC ABG pCO2 POC ABG pO2 126.5 H ABG pO2 ABG HCO3 ABG O2 Saturation ABG Base Excess ABG Hemoglobin 10.3 L ABG Oxyhemoglobin ABG Sodium ABG Potassium ABG Chloride ABG Glucose 220 H Oxyhemoglobin Carboxyhemoglobin Sodium Potassium Chloride Carbon Dioxide BUN Creatinine Glucose POC Glucose 117 H 121 H Lactic Acid Calcium Magnesium Ferritin Total Bilirubin Direct Bilirubin AST ALT Alkaline Phosphatase Lactate Dehydrogenase C-Reactive Protein Total Protein Albumin Triglycerides Lipase Arterial Blood Glucose 220 H Arterial Blood Ionized Calcium Urine WBC (Auto) Coronavirus (PCR) SARS-CoV-2 IgG Ab Crossmatch 06/10/20 06/10/20 06/10/20 05:30 09:38 12:03 WBC RBC Hgb Hct MCV MCH MCHC RDW Lymph % (Auto) Lymph # (Auto) [place] # (Auto) Baso # (Auto) Seg Neutrophils % Seg Neuts % (Manual) Lymphocytes % (Manual) Nucleated RBC % Seg Neutrophils # Seg Neutrophils # Man Lymphocytes # (Manual) Monocytes # (Manual) Eosinophils # (Manual) PT INR APTT D-Dimer Heparin Anti-Xa Level ABG pH POC ABG pCO2 POC ABG pO2 ABG pO2 ABG HCO3 ABG O2 Saturation ABG Base Excess ABG Hemoglobin ABG Oxyhemoglobin ABG Sodium ABG Potassium ABG Chloride ABG Glucose Oxyhemoglobin Carboxyhemoglobin Sodium Potassium Chloride Carbon Dioxide BUN Creatinine Glucose POC Glucose 181 H 204 H Lactic Acid Calcium Magnesium Ferritin Total Bilirubin Direct Bilirubin AST ALT Alkaline Phosphatase Lactate Dehydrogenase C-Reactive Protein Total Protein Albumin Triglycerides 738 H Lipase Arterial Blood Glucose Arterial Blood Ionized Calcium Urine WBC (Auto) Coronavirus (PCR) SARS-CoV-2 IgG Ab Crossmatch 06/10/20 06/11/20 06/11/20 17:17 00:04 04:38 WBC RBC Hgb Hct MCV MCH MCHC RDW Lymph % (Auto) Lymph # (Auto) [place] # (Auto) Baso # (Auto) Seg Neutrophils % Seg Neuts % (Manual) Lymphocytes % (Manual) Nucleated RBC % Seg Neutrophils # Seg Neutrophils # Man Lymphocytes # (Manual) Monocytes # (Manual) Eosinophils # (Manual) PT INR APTT D-Dimer Heparin Anti-Xa Level ABG pH 7.479 H POC ABG pCO2 POC ABG pO2 76.7 L ABG pO2 ABG HCO3 ABG O2 Saturation ABG Base Excess ABG Hemoglobin 9.8 L ABG Oxyhemoglobin ABG Sodium 135.8 L ABG Potassium ABG Chloride ABG Glucose 238 H Oxyhemoglobin Carboxyhemoglobin Sodium Potassium Chloride Carbon Dioxide BUN Creatinine Glucose POC Glucose 156 H 178 H Lactic Acid Calcium Magnesium Ferritin Total Bilirubin Direct Bilirubin AST ALT Alkaline Phosphatase Lactate Dehydrogenase C-Reactive Protein Total Protein Albumin Triglycerides Lipase Arterial Blood Glucose 238 H Arterial Blood Ionized Calcium Urine WBC (Auto) Coronavirus (PCR) SARS-CoV-2 IgG Ab Crossmatch 06/11/20 06/11/20 06/11/20 05:21 06:52 11:50 WBC RBC Hgb Hct MCV MCH MCHC RDW Lymph % (Auto) Lymph # (Auto) [place] # (Auto) Baso # (Auto) Seg Neutrophils % Seg Neuts % (Manual) Lymphocytes % (Manual) Nucleated RBC % Seg Neutrophils # Seg Neutrophils # Man Lymphocytes # (Manual) Monocytes # (Manual) Eosinophils # (Manual) PT INR APTT D-Dimer Heparin Anti-Xa Level ABG pH POC ABG pCO2 POC ABG pO2 ABG pO2 ABG HCO3 ABG O2 Saturation ABG Base Excess ABG Hemoglobin ABG Oxyhemoglobin ABG Sodium ABG Potassium ABG Chloride ABG Glucose Oxyhemoglobin Carboxyhemoglobin Sodium Potassium Chloride Carbon Dioxide BUN Creatinine Glucose POC Glucose 215 H 187 H Lactic Acid Calcium Magnesium Ferritin Total Bilirubin Direct Bilirubin AST ALT Alkaline Phosphatase Lactate Dehydrogenase C-Reactive Protein Total Protein Albumin Triglycerides 331 H Lipase Arterial Blood Glucose Arterial Blood Ionized Calcium Urine WBC (Auto) Coronavirus (PCR) SARS-CoV-2 IgG Ab Crossmatch 06/11/20 06/11/20 06/12/20 17:49 23:35 04:52 WBC RBC Hgb Hct MCV MCH MCHC RDW Lymph % (Auto) Lymph # (Auto) [place] # (Auto) Baso # (Auto) Seg Neutrophils % Seg Neuts % (Manual) Lymphocytes % (Manual) Nucleated RBC % Seg Neutrophils # Seg Neutrophils # Man Lymphocytes # (Manual) Monocytes # (Manual) Eosinophils # (Manual) PT INR APTT D-Dimer Heparin Anti-Xa Level ABG pH 7.486 H POC ABG pCO2 POC ABG pO2 ABG pO2 ABG HCO3 ABG O2 Saturation ABG Base Excess ABG Hemoglobin 9.4 L ABG Oxyhemoglobin ABG Sodium ABG Potassium 3.2 L ABG Chloride ABG Glucose 209 H Oxyhemoglobin Carboxyhemoglobin Sodium Potassium Chloride Carbon Dioxide BUN Creatinine Glucose POC Glucose 211 H 200 H Lactic Acid Calcium Magnesium Ferritin Total Bilirubin Direct Bilirubin AST ALT Alkaline Phosphatase Lactate Dehydrogenase C-Reactive Protein Total Protein Albumin Triglycerides Lipase Arterial Blood Glucose 209 H Arterial Blood Ionized Calcium Urine WBC (Auto) Coronavirus (PCR) SARS-CoV-2 IgG Ab Crossmatch 06/12/20 06/12/20 06/12/20 05:13 11:47 18:33 WBC RBC Hgb Hct MCV MCH MCHC RDW Lymph % (Auto) Lymph # (Auto) [place] # (Auto) Baso # (Auto) Seg Neutrophils % Seg Neuts % (Manual) Lymphocytes % (Manual) Nucleated RBC % Seg Neutrophils # Seg Neutrophils # Man Lymphocytes # (Manual) Monocytes # (Manual) Eosinophils # (Manual) PT INR APTT D-Dimer Heparin Anti-Xa Level ABG pH POC ABG pCO2 POC ABG pO2 ABG pO2 ABG HCO3 ABG O2 Saturation ABG Base Excess ABG Hemoglobin ABG Oxyhemoglobin ABG Sodium ABG Potassium ABG Chloride ABG Glucose Oxyhemoglobin Carboxyhemoglobin Sodium Potassium Chloride Carbon Dioxide BUN Creatinine Glucose POC Glucose 174 H 214 H 194 H Lactic Acid Calcium Magnesium Ferritin Total Bilirubin Direct Bilirubin AST ALT Alkaline Phosphatase Lactate Dehydrogenase C-Reactive Protein Total Protein Albumin Triglycerides Lipase Arterial Blood Glucose Arterial Blood Ionized Calcium Urine WBC (Auto) Coronavirus (PCR) SARS-CoV-2 IgG Ab Crossmatch 06/12/20 06/13/20 06/13/20 23:49 05:41 12:30 WBC RBC Hgb Hct MCV MCH MCHC RDW Lymph % (Auto) Lymph # (Auto) [place] # (Auto) Baso # (Auto) Seg Neutrophils % Seg Neuts % (Manual) Lymphocytes % (Manual) Nucleated RBC % Seg Neutrophils # Seg Neutrophils # Man Lymphocytes # (Manual) Monocytes # (Manual) Eosinophils # (Manual) PT INR APTT D-Dimer Heparin Anti-Xa Level ABG pH POC ABG pCO2 POC ABG pO2 ABG pO2 ABG HCO3 ABG O2 Saturation ABG Base Excess ABG Hemoglobin ABG Oxyhemoglobin ABG Sodium ABG Potassium ABG Chloride ABG Glucose Oxyhemoglobin Carboxyhemoglobin Sodium Potassium Chloride Carbon Dioxide BUN Creatinine Glucose POC Glucose 160 H 150 H 181 H Lactic Acid Calcium Magnesium Ferritin Total Bilirubin Direct Bilirubin AST ALT Alkaline Phosphatase Lactate Dehydrogenase C-Reactive Protein Total Protein Albumin Triglycerides Lipase Arterial Blood Glucose Arterial Blood Ionized Calcium Urine WBC (Auto) Coronavirus (PCR) SARS-CoV-2 IgG Ab Crossmatch 06/13/20 06/13/20 06/13/20 14:14 17:48 23:27 WBC 12.8 H RBC 2.33 L Hgb 8.0 L Hct 23.3 L MCV 100 H MCH 34 H MCHC RDW 15.7 H Lymph % (Auto) Lymph # (Auto) [place] # (Auto) Baso # (Auto) Seg Neutrophils % Seg Neuts % (Manual) 85.0 H Lymphocytes % (Manual) 10.0 L Nucleated RBC % Seg Neutrophils # Seg Neutrophils # Man 10.9 H Lymphocytes # (Manual) Monocytes # (Manual) Eosinophils # (Manual) PT INR APTT D-Dimer Heparin Anti-Xa Level ABG pH POC ABG pCO2 POC ABG pO2 ABG pO2 ABG HCO3 ABG O2 Saturation ABG Base Excess ABG Hemoglobin ABG Oxyhemoglobin ABG Sodium ABG Potassium ABG Chloride ABG Glucose Oxyhemoglobin Carboxyhemoglobin Sodium Potassium Chloride Carbon Dioxide BUN Creatinine Glucose POC Glucose 173 H 154 H Lactic Acid Calcium Magnesium Ferritin Total Bilirubin Direct Bilirubin AST ALT Alkaline Phosphatase Lactate Dehydrogenase C-Reactive Protein Total Protein Albumin Triglycerides Lipase Arterial Blood Glucose Arterial Blood Ionized Calcium Urine WBC (Auto) Coronavirus (PCR) SARS-CoV-2 IgG Ab Crossmatch 12/01/2506/14/20 06/14/20 03:58 05:21 07:15 WBC 26.2 H RBC 2.97 L Hgb 9.7 L Hct 29.9 L D MCV 101 H MCH 33 H MCHC RDW 15.3 H Lymph % (Auto) Lymph # (Auto) [place] # (Auto) Baso # (Auto) Seg Neutrophils % Seg Neuts % (Manual) 79.0 H Lymphocytes % (Manual) 5.0 L Nucleated RBC % 3.0 H Seg Neutrophils # Seg Neutrophils # Man 20.7 H Lymphocytes # (Manual) Monocytes # (Manual) 1.3 H Eosinophils # (Manual) PT INR APTT D-Dimer Heparin Anti-Xa Level ABG pH POC ABG pCO2 51.5 H POC ABG pO2 70.0 L ABG pO2 ABG HCO3 ABG O2 Saturation ABG Base Excess ABG Hemoglobin 10.1 L ABG Oxyhemoglobin ABG Sodium 131.5 L ABG Potassium 3.1 L ABG Chloride 93.0 L ABG Glucose 188 H Oxyhemoglobin Carboxyhemoglobin Sodium Potassium Chloride Carbon Dioxide BUN Creatinine Glucose POC Glucose 147 H Lactic Acid Calcium Magnesium Ferritin Total Bilirubin Direct Bilirubin AST ALT Alkaline Phosphatase Lactate Dehydrogenase C-Reactive Protein Total Protein Albumin Triglycerides Lipase Arterial Blood Glucose 188 H Arterial Blood Ionized Calcium Urine WBC (Auto) Coronavirus (PCR) SARS-CoV-2 IgG Ab Crossmatch 06/14/20 06/14/20 06/14/20 07:15 11:30 11:50 WBC RBC Hgb Hct MCV MCH MCHC RDW Lymph % (Auto) Lymph # (Auto) [place] # (Auto) Baso # (Auto) Seg Neutrophils % Seg Neuts % (Manual) Lymphocytes % (Manual) Nucleated RBC % Seg Neutrophils # Seg Neutrophils # Man Lymphocytes # (Manual) Monocytes # (Manual) Eosinophils # (Manual) PT INR APTT D-Dimer Heparin Anti-Xa Level ABG pH POC ABG pCO2 POC ABG pO2 ABG pO2 ABG HCO3 ABG O2 Saturation ABG Base Excess ABG Hemoglobin ABG Oxyhemoglobin ABG Sodium ABG Potassium ABG Chloride ABG Glucose Oxyhemoglobin Carboxyhemoglobin Sodium 135 L Potassium 3.5 L Chloride 90.4 L Carbon Dioxide 38 H BUN Creatinine 0.5 L Glucose 190 H POC Glucose 176 H Lactic Acid Calcium Magnesium Ferritin 1496.0 H Total Bilirubin Direct Bilirubin AST ALT 81 H Alkaline Phosphatase Lactate Dehydrogenase C-Reactive Protein Total Protein Albumin 2.9 L Triglycerides Lipase Arterial Blood Glucose Arterial Blood Ionized Calcium Urine WBC (Auto) Coronavirus (PCR) SARS-CoV-2 IgG Ab Crossmatch 06/14/20 06/15/20 06/15/20 23:31 04:00 05:00 WBC RBC Hgb Hct MCV MCH MCHC RDW Lymph % (Auto) Lymph # (Auto) [place] # (Auto) Baso # (Auto) Seg Neutrophils % Seg Neuts % (Manual) Lymphocytes % (Manual) Nucleated RBC % Seg Neutrophils # Seg Neutrophils # Man Lymphocytes # (Manual) Monocytes # (Manual) Eosinophils # (Manual) PT INR APTT D-Dimer Heparin Anti-Xa Level ABG pH POC ABG pCO2 POC ABG pO2 ABG pO2 ABG HCO3 ABG O2 Saturation ABG Base Excess ABG Hemoglobin ABG Oxyhemoglobin ABG Sodium ABG Potassium ABG Chloride ABG Glucose Oxyhemoglobin Carboxyhemoglobin Sodium 133 L Potassium Chloride 91.1 L Carbon Dioxide 34 H BUN Creatinine 0.4 L Glucose 159 H POC Glucose 200 H Lactic Acid Calcium Magnesium Ferritin Total Bilirubin 2.00 H Direct Bilirubin AST 47 H ALT 77 H Alkaline Phosphatase Lactate Dehydrogenase C-Reactive Protein Total Protein Albumin 2.6 L Triglycerides 152 H Lipase Arterial Blood Glucose Arterial Blood Ionized Calcium Urine WBC (Auto) Coronavirus (PCR) SARS-CoV-2 IgG Ab Crossmatch 06/15/20 06/15/20 06/15/20 05:35 06:27 11:38 WBC RBC Hgb Hct MCV MCH MCHC RDW Lymph % (Auto) Lymph # (Auto) [place] # (Auto) Baso # (Auto) Seg Neutrophils % Seg Neuts % (Manual) Lymphocytes % (Manual) Nucleated RBC % Seg Neutrophils # Seg Neutrophils # Man Lymphocytes # (Manual) Monocytes # (Manual) Eosinophils # (Manual) PT INR APTT D-Dimer Heparin Anti-Xa Level ABG pH POC ABG pCO2 61.0 H POC ABG pO2 67.9 L ABG pO2 ABG HCO3 ABG O2 Saturation ABG Base Excess ABG Hemoglobin 10.4 L ABG Oxyhemoglobin ABG Sodium 132.7 L ABG Potassium 3.3 L ABG Chloride 92.0 L ABG Glucose 158 H Oxyhemoglobin Carboxyhemoglobin Sodium Potassium Chloride Carbon Dioxide BUN Creatinine Glucose POC Glucose 148 H 197 H Lactic Acid Calcium Magnesium Ferritin Total Bilirubin Direct Bilirubin AST ALT Alkaline Phosphatase Lactate Dehydrogenase C-Reactive Protein Total Protein Albumin Triglycerides Lipase Arterial Blood Glucose 158 H Arterial Blood Ionized Calcium Urine WBC (Auto) Coronavirus (PCR) SARS-CoV-2 IgG Ab Crossmatch 06/15/20 06/15/20 06/16/20 17:29 Unknown 00:01 WBC 20.7 H RBC 2.57 L Hgb 8.9 L Hct 25.8 L MCV 101 H MCH 35 H MCHC 35 H RDW 16.0 H Lymph % (Auto) Lymph # (Auto) [place] # (Auto) Baso # (Auto) Seg Neutrophils % Seg Neuts % (Manual) 83.0 H Lymphocytes % (Manual) 8.0 L Nucleated RBC % Seg Neutrophils # Seg Neutrophils # Man 17.2 H Lymphocytes # (Manual) Monocytes # (Manual) 1.2 H Eosinophils # (Manual) PT INR APTT D-Dimer Heparin Anti-Xa Level ABG pH POC ABG pCO2 POC ABG pO2 ABG pO2 ABG HCO3 ABG O2 Saturation ABG Base Excess ABG Hemoglobin ABG Oxyhemoglobin ABG Sodium ABG Potassium ABG Chloride ABG Glucose Oxyhemoglobin Carboxyhemoglobin Sodium Potassium Chloride Carbon Dioxide BUN Creatinine Glucose POC Glucose 231 H 257 H Lactic Acid Calcium Magnesium Ferritin Total Bilirubin Direct Bilirubin AST ALT Alkaline Phosphatase Lactate Dehydrogenase C-Reactive Protein Total Protein Albumin Triglycerides Lipase Arterial Blood Glucose Arterial Blood Ionized Calcium Urine WBC (Auto) Coronavirus (PCR) SARS-CoV-2 IgG Ab Crossmatch 06/16/20 06/16/20 06/16/20 04:00 04:00 05:22 WBC 13.8 H RBC 2.03 L Hgb 7.6 L Hct 20.7 L MCV 102 H MCH 37 H MCHC 37 H RDW 16.2 H Lymph % (Auto) 4.4 L Lymph # (Auto) 0.6 L [place] # (Auto) Baso # (Auto) Seg Neutrophils % Seg Neuts % (Manual) Lymphocytes % (Manual) Nucleated RBC % Seg Neutrophils # 12.7 H Seg Neutrophils # Man Lymphocytes # (Manual) Monocytes # (Manual) Eosinophils # (Manual) PT INR APTT D-Dimer Heparin Anti-Xa Level ABG pH POC ABG pCO2 POC ABG pO2 ABG pO2 ABG HCO3 ABG O2 Saturation ABG Base Excess ABG Hemoglobin ABG Oxyhemoglobin ABG Sodium ABG Potassium ABG Chloride ABG Glucose Oxyhemoglobin Carboxyhemoglobin Sodium 130 L Potassium Chloride 88.9 L Carbon Dioxide 36 H BUN Creatinine 0.3 L Glucose 276 H POC Glucose 250 H Lactic Acid Calcium Magnesium Ferritin Total Bilirubin Direct Bilirubin AST ALT Alkaline Phosphatase Lactate Dehydrogenase C-Reactive Protein Total Protein Albumin Triglycerides Lipase Arterial Blood Glucose Arterial Blood Ionized Calcium Urine WBC (Auto) Coronavirus (PCR) SARS-CoV-2 IgG Ab Crossmatch 06/16/20 06/16/20 06/17/20 12:44 18:18 00:39 WBC RBC Hgb Hct MCV MCH MCHC RDW Lymph % (Auto) Lymph # (Auto) [place] # (Auto) Baso # (Auto) Seg Neutrophils % Seg Neuts % (Manual) Lymphocytes % (Manual) Nucleated RBC % Seg Neutrophils # Seg Neutrophils # Man Lymphocytes # (Manual) Monocytes # (Manual) Eosinophils # (Manual) PT INR APTT D-Dimer Heparin Anti-Xa Level ABG pH POC ABG pCO2 POC ABG pO2 ABG pO2 ABG HCO3 ABG O2 Saturation ABG Base Excess ABG Hemoglobin ABG Oxyhemoglobin ABG Sodium ABG Potassium ABG Chloride ABG Glucose Oxyhemoglobin Carboxyhemoglobin Sodium Potassium Chloride Carbon Dioxide BUN Creatinine Glucose POC Glucose 279 H 239 H 247 H Lactic Acid Calcium Magnesium Ferritin Total Bilirubin Direct Bilirubin AST ALT Alkaline Phosphatase Lactate Dehydrogenase C-Reactive Protein Total Protein Albumin Triglycerides Lipase Arterial Blood Glucose Arterial Blood Ionized Calcium Urine WBC (Auto) Coronavirus (PCR) SARS-CoV-2 IgG Ab Crossmatch 06/17/20 06/17/20 06/17/20 03:40 04:08 10:54 WBC RBC Hgb Hct MCV MCH MCHC RDW Lymph % (Auto) Lymph # (Auto) [place] # (Auto) Baso # (Auto) Seg Neutrophils % Seg Neuts % (Manual) Lymphocytes % (Manual) Nucleated RBC % Seg Neutrophils # Seg Neutrophils # Man Lymphocytes # (Manual) Monocytes # (Manual) Eosinophils # (Manual) PT INR APTT D-Dimer Heparin Anti-Xa Level ABG pH POC ABG pCO2 65.7 H POC ABG pO2 ABG pO2 ABG HCO3 ABG O2 Saturation ABG Base Excess ABG Hemoglobin 11.9 L ABG Oxyhemoglobin ABG Sodium ABG Potassium ABG Chloride 93.0 L ABG Glucose 244 H Oxyhemoglobin Carboxyhemoglobin Sodium Potassium Chloride Carbon Dioxide BUN Creatinine Glucose POC Glucose 221 H 248 H Lactic Acid Calcium Magnesium Ferritin Total Bilirubin Direct Bilirubin AST ALT Alkaline Phosphatase Lactate Dehydrogenase C-Reactive Protein Total Protein Albumin Triglycerides Lipase Arterial Blood Glucose 244 H Arterial Blood Ionized Calcium Urine WBC (Auto) Coronavirus (PCR) SARS-CoV-2 IgG Ab Crossmatch 06/17/20 06/17/20 06/17/20 17:47 23:11 23:29 WBC RBC Hgb Hct MCV MCH MCHC RDW Lymph % (Auto) Lymph # (Auto) [place] # (Auto) Baso # (Auto) Seg Neutrophils % Seg Neuts % (Manual) Lymphocytes % (Manual) Nucleated RBC % Seg Neutrophils # Seg Neutrophils # Man Lymphocytes # (Manual) Monocytes # (Manual) Eosinophils # (Manual) PT INR APTT D-Dimer Heparin Anti-Xa Level ABG pH POC ABG pCO2 85.2 H POC ABG pO2 48.4 L ABG pO2 ABG HCO3 ABG O2 Saturation ABG Base Excess ABG Hemoglobin 8.0 L ABG Oxyhemoglobin ABG Sodium ABG Potassium ABG Chloride 95.0 L ABG Glucose 292 H Oxyhemoglobin Carboxyhemoglobin Sodium Potassium Chloride Carbon Dioxide BUN Creatinine Glucose POC Glucose 245 H 252 H Lactic Acid Calcium Magnesium Ferritin Total Bilirubin Direct Bilirubin AST ALT Alkaline Phosphatase Lactate Dehydrogenase C-Reactive Protein Total Protein Albumin Triglycerides Lipase Arterial Blood Glucose 292 H Arterial Blood Ionized Calcium Urine WBC (Auto) Coronavirus (PCR) SARS-CoV-2 IgG Ab Crossmatch 06/18/20 06/18/20 06/18/20 03:14 05:34 11:47 WBC RBC Hgb Hct MCV MCH MCHC RDW Lymph % (Auto) Lymph # (Auto) [place] # (Auto) Baso # (Auto) Seg Neutrophils % Seg Neuts % (Manual) Lymphocytes % (Manual) Nucleated RBC % Seg Neutrophils # Seg Neutrophils # Man Lymphocytes # (Manual) Monocytes # (Manual) Eosinophils # (Manual) PT INR APTT D-Dimer Heparin Anti-Xa Level ABG pH POC ABG pCO2 65.4 H POC ABG pO2 160.7 H ABG pO2 ABG HCO3 ABG O2 Saturation ABG Base Excess ABG Hemoglobin 7.8 L ABG Oxyhemoglobin ABG Sodium ABG Potassium ABG Chloride 95.0 L ABG Glucose 251 H Oxyhemoglobin Carboxyhemoglobin Sodium Potassium Chloride Carbon Dioxide BUN Creatinine Glucose POC Glucose 243 H 263 H Lactic Acid Calcium Magnesium Ferritin Total Bilirubin Direct Bilirubin AST ALT Alkaline Phosphatase Lactate Dehydrogenase C-Reactive Protein Total Protein Albumin Triglycerides Lipase Arterial Blood Glucose 251 H Arterial Blood Ionized Calcium Urine WBC (Auto) Coronavirus (PCR) SARS-CoV-2 IgG Ab Crossmatch 06/18/20 06/18/20 06/19/20 17:31 23:33 04:32 WBC RBC Hgb Hct MCV MCH MCHC RDW Lymph % (Auto) Lymph # (Auto) [place] # (Auto) Baso # (Auto) Seg Neutrophils % Seg Neuts % (Manual) Lymphocytes % (Manual) Nucleated RBC % Seg Neutrophils # Seg Neutrophils # Man Lymphocytes # (Manual) Monocytes # (Manual) Eosinophils # (Manual) PT INR APTT D-Dimer Heparin Anti-Xa Level ABG pH POC ABG pCO2 83.1 H POC ABG pO2 65.8 L ABG pO2 ABG HCO3 ABG O2 Saturation ABG Base Excess ABG Hemoglobin 8.9 L ABG Oxyhemoglobin ABG Sodium ABG Potassium ABG Chloride 96.0 L ABG Glucose 297 H Oxyhemoglobin Carboxyhemoglobin Sodium Potassium Chloride Carbon Dioxide BUN Creatinine Glucose POC Glucose 286 H 238 H Lactic Acid Calcium Magnesium Ferritin Total Bilirubin Direct Bilirubin AST ALT Alkaline Phosphatase Lactate Dehydrogenase C-Reactive Protein Total Protein Albumin Triglycerides Lipase Arterial Blood Glucose 297 H Arterial Blood Ionized Calcium Urine WBC (Auto) Coronavirus (PCR) SARS-CoV-2 IgG Ab Crossmatch 06/19/20 06/19/20 06/19/20 05:55 11:20 17:12 WBC RBC Hgb Hct MCV MCH MCHC RDW Lymph % (Auto) Lymph # (Auto) [place] # (Auto) Baso # (Auto) Seg Neutrophils % Seg Neuts % (Manual) Lymphocytes % (Manual) Nucleated RBC % Seg Neutrophils # Seg Neutrophils # Man Lymphocytes # (Manual) Monocytes # (Manual) Eosinophils # (Manual) PT INR APTT D-Dimer Heparin Anti-Xa Level ABG pH POC ABG pCO2 POC ABG pO2 ABG pO2 ABG HCO3 ABG O2 Saturation ABG Base Excess ABG Hemoglobin ABG Oxyhemoglobin ABG Sodium ABG Potassium ABG Chloride ABG Glucose Oxyhemoglobin Carboxyhemoglobin Sodium Potassium Chloride Carbon Dioxide BUN Creatinine Glucose POC Glucose 274 H 282 H 298 H Lactic Acid Calcium Magnesium Ferritin Total Bilirubin Direct Bilirubin AST ALT Alkaline Phosphatase Lactate Dehydrogenase C-Reactive Protein Total Protein Albumin Triglycerides Lipase Arterial Blood Glucose Arterial Blood Ionized Calcium Urine WBC (Auto) Coronavirus (PCR) SARS-CoV-2 IgG Ab Crossmatch 06/19/20 06/20/20 06/20/20 23:08 03:33 06:01 WBC RBC Hgb Hct MCV MCH MCHC RDW Lymph % (Auto) Lymph # (Auto) [place] # (Auto) Baso # (Auto) Seg Neutrophils % Seg Neuts % (Manual) Lymphocytes % (Manual) Nucleated RBC % Seg Neutrophils # Seg Neutrophils # Man Lymphocytes # (Manual) Monocytes # (Manual) Eosinophils # (Manual) PT INR APTT D-Dimer Heparin Anti-Xa Level ABG pH POC ABG pCO2 POC ABG pO2 ABG pO2 69.9 L ABG HCO3 50.8 H ABG O2 Saturation ABG Base Excess 24.2 H ABG Hemoglobin 5.8 L ABG Oxyhemoglobin ABG Sodium ABG Potassium ABG Chloride ABG Glucose Oxyhemoglobin Carboxyhemoglobin Sodium Potassium Chloride Carbon Dioxide BUN Creatinine Glucose POC Glucose 293 H 182 H Lactic Acid Calcium Magnesium Ferritin Total Bilirubin Direct Bilirubin AST ALT Alkaline Phosphatase Lactate Dehydrogenase C-Reactive Protein Total Protein Albumin Triglycerides Lipase Arterial Blood Glucose Arterial Blood Ionized Calcium Urine WBC (Auto) Coronavirus (PCR) SARS-CoV-2 IgG Ab Crossmatch 06/20/20 06/20/20 06/20/20 11:47 17:46 23:37 WBC RBC Hgb Hct MCV MCH MCHC RDW Lymph % (Auto) Lymph # (Auto) [place] # (Auto) Baso # (Auto) Seg Neutrophils % Seg Neuts % (Manual) Lymphocytes % (Manual) Nucleated RBC % Seg Neutrophils # Seg Neutrophils # Man Lymphocytes # (Manual) Monocytes # (Manual) Eosinophils # (Manual) PT INR APTT D-Dimer Heparin Anti-Xa Level ABG pH POC ABG pCO2 POC ABG pO2 ABG pO2 ABG HCO3 ABG O2 Saturation ABG Base Excess ABG Hemoglobin ABG Oxyhemoglobin ABG Sodium ABG Potassium ABG Chloride ABG Glucose Oxyhemoglobin Carboxyhemoglobin Sodium Potassium Chloride Carbon Dioxide BUN Creatinine Glucose POC Glucose 170 H 215 H 256 H Lactic Acid Calcium Magnesium Ferritin Total Bilirubin Direct Bilirubin AST ALT Alkaline Phosphatase Lactate Dehydrogenase C-Reactive Protein Total Protein Albumin Triglycerides Lipase Arterial Blood Glucose Arterial Blood Ionized Calcium Urine WBC (Auto) Coronavirus (PCR) SARS-CoV-2 IgG Ab Crossmatch 06/21/20 06/21/20 06/21/20 04:00 05:14 05:51 WBC RBC Hgb Hct MCV MCH MCHC RDW Lymph % (Auto) Lymph # (Auto) [place] # (Auto) Baso # (Auto) Seg Neutrophils % Seg Neuts % (Manual) Lymphocytes % (Manual) Nucleated RBC % Seg Neutrophils # Seg Neutrophils # Man Lymphocytes # (Manual) Monocytes # (Manual) Eosinophils # (Manual) PT INR APTT D-Dimer Heparin Anti-Xa Level ABG pH 7.474 H POC ABG pCO2 POC ABG pO2 ABG pO2 ABG HCO3 52.1 H ABG O2 Saturation ABG Base Excess 23.3 H ABG Hemoglobin 5.3 L ABG Oxyhemoglobin ABG Sodium ABG Potassium ABG Chloride ABG Glucose Oxyhemoglobin 93.8 L Carboxyhemoglobin Sodium Potassium Chloride Carbon Dioxide BUN Creatinine Glucose POC Glucose 122 H 129 H Lactic Acid Calcium Magnesium Ferritin Total Bilirubin Direct Bilirubin AST ALT Alkaline Phosphatase Lactate Dehydrogenase C-Reactive Protein Total Protein Albumin Triglycerides Lipase Arterial Blood Glucose Arterial Blood Ionized Calcium Urine WBC (Auto) Coronavirus (PCR) SARS-CoV-2 IgG Ab Crossmatch 06/21/20 06/21/20 06/21/20 11:00 11:00 11:42 WBC 14.2 H RBC 1.85 L Hgb 6.2 L Hct 19.5 L* MCV 105 H MCH 34 H MCHC RDW 18.0 H Lymph % (Auto) Lymph # (Auto) [place] # (Auto) Baso # (Auto) Seg Neutrophils % Seg Neuts % (Manual) Lymphocytes % (Manual) Nucleated RBC % Seg Neutrophils # Seg Neutrophils # Man Lymphocytes # (Manual) Monocytes # (Manual) Eosinophils # (Manual) PT INR APTT D-Dimer Heparin Anti-Xa Level ABG pH POC ABG pCO2 POC ABG pO2 ABG pO2 ABG HCO3 ABG O2 Saturation ABG Base Excess ABG Hemoglobin ABG Oxyhemoglobin ABG Sodium ABG Potassium ABG Chloride ABG Glucose Oxyhemoglobin Carboxyhemoglobin Sodium 147 H Potassium Chloride Carbon Dioxide 51 H* BUN 31 H Creatinine 0.5 L Glucose 224 H POC Glucose 217 H Lactic Acid Calcium Magnesium Ferritin Total Bilirubin Direct Bilirubin AST ALT Alkaline Phosphatase Lactate Dehydrogenase C-Reactive Protein Total Protein Albumin Triglycerides Lipase Arterial Blood Glucose Arterial Blood Ionized Calcium Urine WBC (Auto) Coronavirus (PCR) SARS-CoV-2 IgG Ab Crossmatch 06/21/20 06/21/20 06/21/20 14:18 14:30 18:36 WBC RBC Hgb Hct MCV MCH MCHC RDW Lymph % (Auto) Lymph # (Auto) [place] # (Auto) Baso # (Auto) Seg Neutrophils % Seg Neuts % (Manual) Lymphocytes % (Manual) Nucleated RBC % Seg Neutrophils # Seg Neutrophils # Man Lymphocytes # (Manual) Monocytes # (Manual) Eosinophils # (Manual) PT 15.1 H INR 1.19 H APTT D-Dimer Heparin Anti-Xa Level ABG pH POC ABG pCO2 POC ABG pO2 ABG pO2 ABG HCO3 ABG O2 Saturation ABG Base Excess ABG Hemoglobin ABG Oxyhemoglobin ABG Sodium ABG Potassium ABG Chloride ABG Glucose Oxyhemoglobin Carboxyhemoglobin Sodium Potassium Chloride Carbon Dioxide BUN Creatinine Glucose POC Glucose 185 H Lactic Acid Calcium Magnesium Ferritin Total Bilirubin Direct Bilirubin AST ALT Alkaline Phosphatase Lactate Dehydrogenase C-Reactive Protein Total Protein Albumin Triglycerides Lipase Arterial Blood Glucose Arterial Blood Ionized Calcium Urine WBC (Auto) Coronavirus (PCR) SARS-CoV-2 IgG Ab Crossmatch See Detail 06/21/20 06/22/20 06/22/20 21:14 03:50 04:00 WBC RBC Hgb Hct MCV MCH MCHC RDW Lymph % (Auto) Lymph # (Auto) [place] # (Auto) Baso # (Auto) Seg Neutrophils % Seg Neuts % (Manual) Lymphocytes % (Manual) Nucleated RBC % Seg Neutrophils # Seg Neutrophils # Man Lymphocytes # (Manual) Monocytes # (Manual) Eosinophils # (Manual) PT INR APTT D-Dimer Heparin Anti-Xa Level ABG pH 7.451 H POC ABG pCO2 POC ABG pO2 ABG pO2 ABG HCO3 47.5 H ABG O2 Saturation ABG Base Excess 22.0 H ABG Hemoglobin < 5.1 L ABG Oxyhemoglobin ABG Sodium ABG Potassium ABG Chloride ABG Glucose Oxyhemoglobin 94.1 L Carboxyhemoglobin Sodium 149 H Potassium 3.5 L Chloride Carbon Dioxide 42 H* D BUN 34 H Creatinine 0.4 L Glucose 219 H POC Glucose 250 H Lactic Acid Calcium Magnesium Ferritin Total Bilirubin Direct Bilirubin AST ALT Alkaline Phosphatase Lactate Dehydrogenase C-Reactive Protein Total Protein Albumin Triglycerides Lipase Arterial Blood Glucose Arterial Blood Ionized Calcium Urine WBC (Auto) Coronavirus (PCR) SARS-CoV-2 IgG Ab Crossmatch 06/22/20 06/22/20 06/22/20 12:16 14:29 17:56 WBC RBC Hgb Hct MCV MCH MCHC RDW Lymph % (Auto) Lymph # (Auto) [place] # (Auto) Baso # (Auto) Seg Neutrophils % Seg Neuts % (Manual) Lymphocytes % (Manual) Nucleated RBC % Seg Neutrophils # Seg Neutrophils # Man Lymphocytes # (Manual) Monocytes # (Manual) Eosinophils # (Manual) PT 11.8 L INR APTT 23.5 L D-Dimer Heparin Anti-Xa Level ABG pH POC ABG pCO2 POC ABG pO2 ABG pO2 ABG HCO3 ABG O2 Saturation ABG Base Excess ABG Hemoglobin ABG Oxyhemoglobin ABG Sodium ABG Potassium ABG Chloride ABG Glucose Oxyhemoglobin Carboxyhemoglobin Sodium Potassium Chloride Carbon Dioxide BUN Creatinine Glucose POC Glucose 215 H 215 H Lactic Acid Calcium Magnesium Ferritin Total Bilirubin Direct Bilirubin AST ALT Alkaline Phosphatase Lactate Dehydrogenase C-Reactive Protein Total Protein Albumin Triglycerides Lipase Arterial Blood Glucose Arterial Blood Ionized Calcium Urine WBC (Auto) Coronavirus (PCR) SARS-CoV-2 IgG Ab Crossmatch 06/22/20 06/22/20 06/22/20 23:36 23:45 Unknown WBC 14.1 H RBC 2.70 L Hgb 8.9 L 8.9 L Hct 26.9 L 27.2 L D MCV 101 H MCH 33 H MCHC RDW 17.7 H Lymph % (Auto) Lymph # (Auto) [place] # (Auto) Baso # (Auto) Seg Neutrophils % Seg Neuts % (Manual) 92.0 H Lymphocytes % (Manual) 5.0 L Nucleated RBC % Seg Neutrophils # Seg Neutrophils # Man 13.0 H Lymphocytes # (Manual) 0.7 L Monocytes # (Manual) Eosinophils # (Manual) PT INR APTT D-Dimer Heparin Anti-Xa Level ABG pH POC ABG pCO2 POC ABG pO2 ABG pO2 ABG HCO3 ABG O2 Saturation ABG Base Excess ABG Hemoglobin ABG Oxyhemoglobin ABG Sodium ABG Potassium ABG Chloride ABG Glucose Oxyhemoglobin Carboxyhemoglobin Sodium Potassium Chloride Carbon Dioxide BUN Creatinine Glucose POC Glucose 208 H Lactic Acid Calcium Magnesium Ferritin Total Bilirubin Direct Bilirubin AST ALT Alkaline Phosphatase Lactate Dehydrogenase C-Reactive Protein Total Protein Albumin Triglycerides Lipase Arterial Blood Glucose Arterial Blood Ionized Calcium Urine WBC (Auto) Coronavirus (PCR) SARS-CoV-2 IgG Ab Crossmatch 06/23/20 06/23/20 06/23/20 05:17 05:19 06:50 WBC RBC Hgb Hct MCV MCH MCHC RDW Lymph % (Auto) Lymph # (Auto) [place] # (Auto) Baso # (Auto) Seg Neutrophils % Seg Neuts % (Manual) Lymphocytes % (Manual) Nucleated RBC % Seg Neutrophils # Seg Neutrophils # Man Lymphocytes # (Manual) Monocytes # (Manual) Eosinophils # (Manual) PT INR APTT D-Dimer Heparin Anti-Xa Level ABG pH POC ABG pCO2 69.7 H POC ABG pO2 63.3 L ABG pO2 ABG HCO3 ABG O2 Saturation ABG Base Excess ABG Hemoglobin 10.1 L ABG Oxyhemoglobin ABG Sodium ABG Potassium 3.3 L ABG Chloride ABG Glucose 226 H Oxyhemoglobin Carboxyhemoglobin Sodium Potassium 3.0 L Chloride Carbon Dioxide 41 H* BUN 26 H Creatinine 0.4 L Glucose 209 H POC Glucose 200 H Lactic Acid Calcium Magnesium Ferritin Total Bilirubin Direct Bilirubin AST ALT Alkaline Phosphatase Lactate Dehydrogenase C-Reactive Protein Total Protein Albumin 2.9 L Triglycerides Lipase Arterial Blood Glucose 226 H Arterial Blood Ionized Calcium Urine WBC (Auto) Coronavirus (PCR) SARS-CoV-2 IgG Ab Crossmatch 06/23/20 06/23/20 06/23/20 09:41 12:04 18:16 WBC RBC Hgb 9.1 L Hct 28.0 L MCV MCH MCHC RDW Lymph % (Auto) Lymph # (Auto) [place] # (Auto) Baso # (Auto) Seg Neutrophils % Seg Neuts % (Manual) Lymphocytes % (Manual) Nucleated RBC % Seg Neutrophils # Seg Neutrophils # Man Lymphocytes # (Manual) Monocytes # (Manual) Eosinophils # (Manual) PT INR APTT D-Dimer Heparin Anti-Xa Level ABG pH POC ABG pCO2 POC ABG pO2 ABG pO2 ABG HCO3 ABG O2 Saturation ABG Base Excess ABG Hemoglobin ABG Oxyhemoglobin ABG Sodium ABG Potassium ABG Chloride ABG Glucose Oxyhemoglobin Carboxyhemoglobin Sodium Potassium Chloride Carbon Dioxide BUN Creatinine Glucose POC Glucose 146 H 162 H Lactic Acid Calcium Magnesium Ferritin Total Bilirubin Direct Bilirubin AST ALT Alkaline Phosphatase Lactate Dehydrogenase C-Reactive Protein Total Protein Albumin Triglycerides Lipase Arterial Blood Glucose Arterial Blood Ionized Calcium Urine WBC (Auto) Coronavirus (PCR) SARS-CoV-2 IgG Ab Crossmatch 06/23/20 06/23/20 06/24/20 23:24 23:41 02:39 WBC RBC Hgb 8.2 L 8.8 L Hct 24.9 L 26.8 L MCV MCH MCHC RDW Lymph % (Auto) Lymph # (Auto) [place] # (Auto) Baso # (Auto) Seg Neutrophils % Seg Neuts % (Manual) Lymphocytes % (Manual) Nucleated RBC % Seg Neutrophils # Seg Neutrophils # Man Lymphocytes # (Manual) Monocytes # (Manual) Eosinophils # (Manual) PT INR APTT D-Dimer Heparin Anti-Xa Level ABG pH POC ABG pCO2 POC ABG pO2 ABG pO2 ABG HCO3 ABG O2 Saturation ABG Base Excess ABG Hemoglobin ABG Oxyhemoglobin ABG Sodium ABG Potassium ABG Chloride ABG Glucose Oxyhemoglobin Carboxyhemoglobin Sodium Potassium Chloride Carbon Dioxide BUN Creatinine Glucose POC Glucose 248 H Lactic Acid Calcium Magnesium Ferritin Total Bilirubin Direct Bilirubin AST ALT Alkaline Phosphatase Lactate Dehydrogenase C-Reactive Protein Total Protein Albumin Triglycerides Lipase Arterial Blood Glucose Arterial Blood Ionized Calcium Urine WBC (Auto) Coronavirus (PCR) SARS-CoV-2 IgG Ab Crossmatch 06/24/20 06/24/20 06/24/20 02:39 02:45 05:31 WBC RBC Hgb Hct MCV MCH MCHC RDW Lymph % (Auto) Lymph # (Auto) [place] # (Auto) Baso # (Auto) Seg Neutrophils % Seg Neuts % (Manual) Lymphocytes % (Manual) Nucleated RBC % Seg Neutrophils # Seg Neutrophils # Man Lymphocytes # (Manual) Monocytes # (Manual) Eosinophils # (Manual) PT INR APTT D-Dimer Heparin Anti-Xa Level ABG pH POC ABG pCO2 66.9 H POC ABG pO2 109.7 H ABG pO2 ABG HCO3 ABG O2 Saturation ABG Base Excess ABG Hemoglobin 9.7 L ABG Oxyhemoglobin ABG Sodium 135.0 L ABG Potassium ABG Chloride 97.0 L ABG Glucose 277 H Oxyhemoglobin Carboxyhemoglobin Sodium 136 L Potassium Chloride 95.0 L Carbon Dioxide 34 H D BUN 24 H Creatinine 0.3 L Glucose 260 H POC Glucose 164 H Lactic Acid Calcium Magnesium Ferritin Total Bilirubin Direct Bilirubin AST ALT Alkaline Phosphatase Lactate Dehydrogenase C-Reactive Protein Total Protein 5.2 L Albumin 2.6 L Triglycerides Lipase Arterial Blood Glucose 277 H Arterial Blood Ionized Calcium Urine WBC (Auto) Coronavirus (PCR) SARS-CoV-2 IgG Ab Crossmatch 06/24/20 06/24/20 06/24/20 10:00 11:49 17:39 WBC RBC Hgb 8.9 L Hct 26.5 L MCV MCH MCHC RDW Lymph % (Auto) Lymph # (Auto) [place] # (Auto) Baso # (Auto) Seg Neutrophils % Seg Neuts % (Manual) Lymphocytes % (Manual) Nucleated RBC % Seg Neutrophils # Seg Neutrophils # Man Lymphocytes # (Manual) Monocytes # (Manual) Eosinophils # (Manual) PT INR APTT D-Dimer Heparin Anti-Xa Level ABG pH POC ABG pCO2 POC ABG pO2 ABG pO2 ABG HCO3 ABG O2 Saturation ABG Base Excess ABG Hemoglobin ABG Oxyhemoglobin ABG Sodium ABG Potassium ABG Chloride ABG Glucose Oxyhemoglobin Carboxyhemoglobin Sodium Potassium Chloride Carbon Dioxide BUN Creatinine Glucose POC Glucose 198 H 223 H Lactic Acid Calcium Magnesium Ferritin Total Bilirubin Direct Bilirubin AST ALT Alkaline Phosphatase Lactate Dehydrogenase C-Reactive Protein Total Protein Albumin Triglycerides Lipase Arterial Blood Glucose Arterial Blood Ionized Calcium Urine WBC (Auto) Coronavirus (PCR) SARS-CoV-2 IgG Ab Crossmatch 06/24/20 06/25/20 06/25/20 23:56 02:16 04:08 WBC RBC Hgb Hct MCV MCH MCHC RDW Lymph % (Auto) Lymph # (Auto) [place] # (Auto) Baso # (Auto) Seg Neutrophils % Seg Neuts % (Manual) Lymphocytes % (Manual) Nucleated RBC % Seg Neutrophils # Seg Neutrophils # Man Lymphocytes # (Manual) Monocytes # (Manual) Eosinophils # (Manual) PT INR APTT D-Dimer Heparin Anti-Xa Level ABG pH 7.454 H POC ABG pCO2 56.9 H POC ABG pO2 61.0 L ABG pO2 ABG HCO3 ABG O2 Saturation ABG Base Excess ABG Hemoglobin ABG Oxyhemoglobin ABG Sodium 134.3 L ABG Potassium ABG Chloride 92.0 L ABG Glucose 246 H Oxyhemoglobin Carboxyhemoglobin Sodium 134 L Potassium Chloride 89.7 L Carbon Dioxide 36 H BUN Creatinine 0.3 L Glucose 254 H POC Glucose 225 H Lactic Acid Calcium Magnesium Ferritin Total Bilirubin Direct Bilirubin AST ALT Alkaline Phosphatase Lactate Dehydrogenase C-Reactive Protein Total Protein Albumin 2.9 L Triglycerides Lipase Arterial Blood Glucose 246 H Arterial Blood Ionized Calcium Urine WBC (Auto) Coronavirus (PCR) SARS-CoV-2 IgG Ab Crossmatch 06/25/20 06/25/20 06/25/20 05:44 11:35 17:33 WBC RBC Hgb Hct MCV MCH MCHC RDW Lymph % (Auto) Lymph # (Auto) [place] # (Auto) Baso # (Auto) Seg Neutrophils % Seg Neuts % (Manual) Lymphocytes % (Manual) Nucleated RBC % Seg Neutrophils # Seg Neutrophils # Man Lymphocytes # (Manual) Monocytes # (Manual) Eosinophils # (Manual) PT INR APTT D-Dimer Heparin Anti-Xa Level ABG pH POC ABG pCO2 POC ABG pO2 ABG pO2 ABG HCO3 ABG O2 Saturation ABG Base Excess ABG Hemoglobin ABG Oxyhemoglobin ABG Sodium ABG Potassium ABG Chloride ABG Glucose Oxyhemoglobin Carboxyhemoglobin Sodium Potassium Chloride Carbon Dioxide BUN Creatinine Glucose POC Glucose 170 H 175 H 229 H Lactic Acid Calcium Magnesium Ferritin Total Bilirubin Direct Bilirubin AST ALT Alkaline Phosphatase Lactate Dehydrogenase C-Reactive Protein Total Protein Albumin Triglycerides Lipase Arterial Blood Glucose Arterial Blood Ionized Calcium Urine WBC (Auto) Coronavirus (PCR) SARS-CoV-2 IgG Ab Crossmatch 06/25/20 06/26/20 06/26/20 23:55 02:17 02:17 WBC RBC Hgb 10.0 L Hct 30.4 L MCV MCH MCHC RDW Lymph % (Auto) Lymph # (Auto) [place] # (Auto) Baso # (Auto) Seg Neutrophils % Seg Neuts % (Manual) Lymphocytes % (Manual) Nucleated RBC % Seg Neutrophils # Seg Neutrophils # Man Lymphocytes # (Manual) Monocytes # (Manual) Eosinophils # (Manual) PT INR APTT D-Dimer Heparin Anti-Xa Level ABG pH POC ABG pCO2 POC ABG pO2 ABG pO2 ABG HCO3 ABG O2 Saturation ABG Base Excess ABG Hemoglobin ABG Oxyhemoglobin ABG Sodium ABG Potassium ABG Chloride ABG Glucose Oxyhemoglobin Carboxyhemoglobin Sodium 136 L Potassium Chloride 90.1 L Carbon Dioxide 39 H BUN Creatinine 0.2 L Glucose 232 H POC Glucose 192 H Lactic Acid Calcium Magnesium Ferritin Total Bilirubin Direct Bilirubin AST ALT Alkaline Phosphatase Lactate Dehydrogenase C-Reactive Protein Total Protein 6.1 L Albumin 2.9 L Triglycerides Lipase Arterial Blood Glucose Arterial Blood Ionized Calcium Urine WBC (Auto) Coronavirus (PCR) SARS-CoV-2 IgG Ab Crossmatch 06/26/20 06/26/20 06/26/20 04:15 04:49 05:28 WBC RBC Hgb Hct MCV MCH MCHC RDW Lymph % (Auto) Lymph # (Auto) [place] # (Auto) Baso # (Auto) Seg Neutrophils % Seg Neuts % (Manual) Lymphocytes % (Manual) Nucleated RBC % Seg Neutrophils # Seg Neutrophils # Man Lymphocytes # (Manual) Monocytes # (Manual) Eosinophils # (Manual) PT INR APTT D-Dimer Heparin Anti-Xa Level ABG pH 7.453 H POC ABG pCO2 59.6 H POC ABG pO2 ABG pO2 ABG HCO3 ABG O2 Saturation ABG Base Excess ABG Hemoglobin 10.0 L ABG Oxyhemoglobin ABG Sodium 134.2 L ABG Potassium 3.3 L ABG Chloride 92.0 L ABG Glucose 305 H Oxyhemoglobin Carboxyhemoglobin Sodium Potassium Chloride Carbon Dioxide BUN Creatinine Glucose POC Glucose 234 H Lactic Acid Calcium Magnesium Ferritin Total Bilirubin Direct Bilirubin AST ALT Alkaline Phosphatase Lactate Dehydrogenase C-Reactive Protein Total Protein Albumin Triglycerides 203 H Lipase Arterial Blood Glucose 305 H Arterial Blood Ionized Calcium Urine WBC (Auto) Coronavirus (PCR) SARS-CoV-2 IgG Ab Crossmatch 06/26/20 06/26/20 06/26/20 11:58 17:58 21:32 WBC RBC Hgb Hct MCV MCH MCHC RDW Lymph % (Auto) Lymph # (Auto) [place] # (Auto) Baso # (Auto) Seg Neutrophils % Seg Neuts % (Manual) Lymphocytes % (Manual) Nucleated RBC % Seg Neutrophils # Seg Neutrophils # Man Lymphocytes # (Manual) Monocytes # (Manual) Eosinophils # (Manual) PT INR APTT D-Dimer Heparin Anti-Xa Level ABG pH POC ABG pCO2 POC ABG pO2 ABG pO2 ABG HCO3 ABG O2 Saturation ABG Base Excess ABG Hemoglobin ABG Oxyhemoglobin ABG Sodium ABG Potassium ABG Chloride ABG Glucose Oxyhemoglobin Carboxyhemoglobin Sodium Potassium Chloride Carbon Dioxide BUN Creatinine Glucose POC Glucose 198 H 193 H 191 H Lactic Acid Calcium Magnesium Ferritin Total Bilirubin Direct Bilirubin AST ALT Alkaline Phosphatase Lactate Dehydrogenase C-Reactive Protein Total Protein Albumin Triglycerides Lipase Arterial Blood Glucose Arterial Blood Ionized Calcium Urine WBC (Auto) Coronavirus (PCR) SARS-CoV-2 IgG Ab Crossmatch 06/26/20 06/27/20 06/27/20 23:40 04:35 05:32 WBC RBC Hgb Hct MCV MCH MCHC RDW Lymph % (Auto) Lymph # (Auto) [place] # (Auto) Baso # (Auto) Seg Neutrophils % Seg Neuts % (Manual) Lymphocytes % (Manual) Nucleated RBC % Seg Neutrophils # Seg Neutrophils # Man Lymphocytes # (Manual) Monocytes # (Manual) Eosinophils # (Manual) PT INR APTT D-Dimer Heparin Anti-Xa Level ABG pH 7.464 H POC ABG pCO2 60.8 H POC ABG pO2 ABG pO2 ABG HCO3 ABG O2 Saturation ABG Base Excess ABG Hemoglobin 10.1 L ABG Oxyhemoglobin ABG Sodium ABG Potassium 2.9 L ABG Chloride 92.0 L ABG Glucose 298 H Oxyhemoglobin Carboxyhemoglobin Sodium Potassium Chloride Carbon Dioxide BUN Creatinine Glucose POC Glucose 241 H 211 H Lactic Acid Calcium Magnesium Ferritin Total Bilirubin Direct Bilirubin AST ALT Alkaline Phosphatase Lactate Dehydrogenase C-Reactive Protein Total Protein Albumin Triglycerides Lipase Arterial Blood Glucose 298 H Arterial Blood Ionized Calcium Urine WBC (Auto) Coronavirus (PCR) SARS-CoV-2 IgG Ab Crossmatch 06/27/20 06/27/20 06/27/20 12:37 18:08 20:52 WBC RBC Hgb Hct MCV MCH MCHC RDW Lymph % (Auto) Lymph # (Auto) [place] # (Auto) Baso # (Auto) Seg Neutrophils % Seg Neuts % (Manual) Lymphocytes % (Manual) Nucleated RBC % Seg Neutrophils # Seg Neutrophils # Man Lymphocytes # (Manual) Monocytes # (Manual) Eosinophils # (Manual) PT INR APTT D-Dimer Heparin Anti-Xa Level ABG pH POC ABG pCO2 POC ABG pO2 ABG pO2 ABG HCO3 ABG O2 Saturation ABG Base Excess ABG Hemoglobin ABG Oxyhemoglobin ABG Sodium ABG Potassium ABG Chloride ABG Glucose Oxyhemoglobin Carboxyhemoglobin Sodium Potassium Chloride Carbon Dioxide BUN Creatinine Glucose POC Glucose 182 H 197 H 195 H Lactic Acid Calcium Magnesium Ferritin Total Bilirubin Direct Bilirubin AST ALT Alkaline Phosphatase Lactate Dehydrogenase C-Reactive Protein Total Protein Albumin Triglycerides Lipase Arterial Blood Glucose Arterial Blood Ionized Calcium Urine WBC (Auto) Coronavirus (PCR) SARS-CoV-2 IgG Ab Crossmatch 06/27/20 06/28/20 06/28/20 Unknown 04:17 04:50 WBC RBC Hgb Hct MCV MCH MCHC RDW Lymph % (Auto) Lymph # (Auto) [place] # (Auto) Baso # (Auto) Seg Neutrophils % Seg Neuts % (Manual) Lymphocytes % (Manual) Nucleated RBC % Seg Neutrophils # Seg Neutrophils # Man Lymphocytes # (Manual) Monocytes # (Manual) Eosinophils # (Manual) PT INR APTT D-Dimer Heparin Anti-Xa Level ABG pH POC ABG pCO2 58.6 H POC ABG pO2 60.1 L ABG pO2 ABG HCO3 ABG O2 Saturation ABG Base Excess ABG Hemoglobin 10.0 L ABG Oxyhemoglobin ABG Sodium 125.3 L ABG Potassium ABG Chloride 93.0 L ABG Glucose 308 H Oxyhemoglobin Carboxyhemoglobin Sodium Potassium 2.9 L* Chloride 93.4 L Carbon Dioxide 42 H* BUN Creatinine 0.3 L Glucose 211 H POC Glucose 252 H Lactic Acid Calcium 8.1 L Magnesium Ferritin Total Bilirubin Direct Bilirubin AST ALT Alkaline Phosphatase Lactate Dehydrogenase C-Reactive Protein Total Protein 5.1 L Albumin 2.4 L Triglycerides Lipase Arterial Blood Glucose 308 H Arterial Blood Ionized Calcium Urine WBC (Auto) Coronavirus (PCR) SARS-CoV-2 IgG Ab Crossmatch 06/28/20 06/28/20 06/28/20 06:35 06:35 11:36 WBC 18.9 H RBC 2.85 L Hgb 9.5 L Hct 28.4 L MCV 100 H MCH 33 H MCHC RDW 17.3 H Lymph % (Auto) Lymph # (Auto) [place] # (Auto) Baso # (Auto) Seg Neutrophils % 88.6 H Seg Neuts % (Manual) 95.0 H Lymphocytes % (Manual) 1.0 L Nucleated RBC % Seg Neutrophils # 15.9 H Seg Neutrophils # Man 18.0 H Lymphocytes # (Manual) 0.2 L Monocytes # (Manual) Eosinophils # (Manual) PT INR APTT D-Dimer Heparin Anti-Xa Level ABG pH POC ABG pCO2 POC ABG pO2 ABG pO2 ABG HCO3 ABG O2 Saturation ABG Base Excess ABG Hemoglobin ABG Oxyhemoglobin ABG Sodium ABG Potassium ABG Chloride ABG Glucose Oxyhemoglobin Carboxyhemoglobin Sodium Potassium Chloride 94.2 L Carbon Dioxide 38 H BUN Creatinine 0.3 L Glucose 228 H POC Glucose 243 H Lactic Acid Calcium Magnesium Ferritin Total Bilirubin Direct Bilirubin AST ALT Alkaline Phosphatase Lactate Dehydrogenase C-Reactive Protein Total Protein 6.1 L Albumin 2.7 L Triglycerides Lipase Arterial Blood Glucose Arterial Blood Ionized Calcium Urine WBC (Auto) Coronavirus (PCR) SARS-CoV-2 IgG Ab Crossmatch 06/28/20 06/28/20 06/29/20 16:53 21:10 00:06 WBC RBC Hgb Hct MCV MCH MCHC RDW Lymph % (Auto) Lymph # (Auto) [place] # (Auto) Baso # (Auto) Seg Neutrophils % Seg Neuts % (Manual) Lymphocytes % (Manual) Nucleated RBC % Seg Neutrophils # Seg Neutrophils # Man Lymphocytes # (Manual) Monocytes # (Manual) Eosinophils # (Manual) PT INR APTT D-Dimer Heparin Anti-Xa Level ABG pH POC ABG pCO2 POC ABG pO2 ABG pO2 ABG HCO3 ABG O2 Saturation ABG Base Excess ABG Hemoglobin ABG Oxyhemoglobin ABG Sodium ABG Potassium ABG Chloride ABG Glucose Oxyhemoglobin Carboxyhemoglobin Sodium Potassium Chloride Carbon Dioxide BUN Creatinine Glucose POC Glucose 211 H 195 H 200 H Lactic Acid Calcium Magnesium Ferritin Total Bilirubin Direct Bilirubin AST ALT Alkaline Phosphatase Lactate Dehydrogenase C-Reactive Protein Total Protein Albumin Triglycerides Lipase Arterial Blood Glucose Arterial Blood Ionized Calcium Urine WBC (Auto) Coronavirus (PCR) SARS-CoV-2 IgG Ab Crossmatch 06/29/20 06/29/20 06/29/20 03:11 04:00 04:00 WBC 18.8 H RBC 2.82 L Hgb 10.1 L Hct 28.5 L MCV 101 H MCH 36 H MCHC 36 H RDW 17.5 H Lymph % (Auto) 10.7 L Lymph # (Auto) [place] # (Auto) 1.0 H Baso # (Auto) 0.3 H Seg Neutrophils % 82.2 H Seg Neuts % (Manual) Lymphocytes % (Manual) Nucleated RBC % Seg Neutrophils # 15.5 H Seg Neutrophils # Man Lymphocytes # (Manual) Monocytes # (Manual) Eosinophils # (Manual) PT INR APTT D-Dimer Heparin Anti-Xa Level ABG pH POC ABG pCO2 57.5 H POC ABG pO2 69.1 L ABG pO2 ABG HCO3 ABG O2 Saturation ABG Base Excess ABG Hemoglobin 10.2 L ABG Oxyhemoglobin 92.3 L ABG Sodium 130.7 L ABG Potassium 3.2 L ABG Chloride 93.0 L ABG Glucose 228 H Oxyhemoglobin Carboxyhemoglobin Sodium 134 L Potassium 3.3 L Chloride 89.5 L Carbon Dioxide 40 H BUN Creatinine 0.2 L Glucose 190 H POC Glucose Lactic Acid Calcium Magnesium Ferritin Total Bilirubin Direct Bilirubin AST < 5 L ALT < 5 L Alkaline Phosphatase Lactate Dehydrogenase C-Reactive Protein Total Protein 5.9 L Albumin 2.2 L Triglycerides Lipase Arterial Blood Glucose 228 H Arterial Blood Ionized Calcium Urine WBC (Auto) Coronavirus (PCR) SARS-CoV-2 IgG Ab Crossmatch 06/29/20 06/29/20 06/29/20 05:00 05:23 09:36 WBC RBC Hgb Hct MCV MCH MCHC RDW Lymph % (Auto) Lymph # (Auto) [place] # (Auto) Baso # (Auto) Seg Neutrophils % Seg Neuts % (Manual) Lymphocytes % (Manual) Nucleated RBC % Seg Neutrophils # Seg Neutrophils # Man Lymphocytes # (Manual) Monocytes # (Manual) Eosinophils # (Manual) PT INR APTT D-Dimer Heparin Anti-Xa Level ABG pH POC ABG pCO2 POC ABG pO2 ABG pO2 ABG HCO3 ABG O2 Saturation ABG Base Excess ABG Hemoglobin ABG Oxyhemoglobin ABG Sodium ABG Potassium ABG Chloride ABG Glucose Oxyhemoglobin Carboxyhemoglobin Sodium Potassium Chloride Carbon Dioxide BUN Creatinine Glucose POC Glucose 165 H Lactic Acid Calcium Magnesium Ferritin Total Bilirubin Direct Bilirubin AST ALT Alkaline Phosphatase Lactate Dehydrogenase C-Reactive Protein Total Protein Albumin Triglycerides 1544 H 1799 H Lipase Arterial Blood Glucose Arterial Blood Ionized Calcium Urine WBC (Auto) Coronavirus (PCR) SARS-CoV-2 IgG Ab Crossmatch 06/29/20 06/29/20 06/29/20 09:36 12:02 18:00 WBC RBC Hgb Hct MCV MCH MCHC RDW Lymph % (Auto) Lymph # (Auto) [place] # (Auto) Baso # (Auto) Seg Neutrophils % Seg Neuts % (Manual) Lymphocytes % (Manual) Nucleated RBC % Seg Neutrophils # Seg Neutrophils # Man Lymphocytes # (Manual) Monocytes # (Manual) Eosinophils # (Manual) PT INR APTT D-Dimer Heparin Anti-Xa Level ABG pH POC ABG pCO2 POC ABG pO2 ABG pO2 ABG HCO3 ABG O2 Saturation ABG Base Excess ABG Hemoglobin ABG Oxyhemoglobin ABG Sodium ABG Potassium ABG Chloride ABG Glucose Oxyhemoglobin Carboxyhemoglobin Sodium Potassium Chloride Carbon Dioxide BUN Creatinine Glucose POC Glucose 197 H 187 H Lactic Acid Calcium Magnesium Ferritin Total Bilirubin Direct Bilirubin AST ALT Alkaline Phosphatase Lactate Dehydrogenase C-Reactive Protein Total Protein Albumin Triglycerides Lipase 86 H Arterial Blood Glucose Arterial Blood Ionized Calcium Urine WBC (Auto) Coronavirus (PCR) SARS-CoV-2 IgG Ab Crossmatch 06/29/20 06/30/20 06/30/20 23:33 03:46 05:50 WBC RBC Hgb Hct MCV MCH MCHC RDW Lymph % (Auto) Lymph # (Auto) [place] # (Auto) Baso # (Auto) Seg Neutrophils % Seg Neuts % (Manual) Lymphocytes % (Manual) Nucleated RBC % Seg Neutrophils # Seg Neutrophils # Man Lymphocytes # (Manual) Monocytes # (Manual) Eosinophils # (Manual) PT INR APTT D-Dimer Heparin Anti-Xa Level ABG pH 7.466 H POC ABG pCO2 57.3 H POC ABG pO2 66.1 L ABG pO2 ABG HCO3 ABG O2 Saturation ABG Base Excess ABG Hemoglobin 10.2 L ABG Oxyhemoglobin 92.3 L ABG Sodium 134.4 L ABG Potassium 3.2 L ABG Chloride 94.0 L ABG Glucose 178 H Oxyhemoglobin Carboxyhemoglobin Sodium Potassium Chloride Carbon Dioxide BUN Creatinine Glucose POC Glucose 170 H 170 H Lactic Acid Calcium Magnesium Ferritin Total Bilirubin Direct Bilirubin AST ALT Alkaline Phosphatase Lactate Dehydrogenase C-Reactive Protein Total Protein Albumin Triglycerides Lipase Arterial Blood Glucose 178 H Arterial Blood Ionized Calcium Urine WBC (Auto) Coronavirus (PCR) SARS-CoV-2 IgG Ab Crossmatch 06/30/20 06/30/20 06/30/20 07:00 07:00 12:04 WBC 15.6 H RBC 2.91 L Hgb 9.8 L Hct 29.7 L MCV 102 H MCH 34 H MCHC RDW 17.8 H Lymph % (Auto) Lymph # (Auto) [place] # (Auto) Baso # (Auto) Seg Neutrophils % Seg Neuts % (Manual) Lymphocytes % (Manual) 5.0 L Nucleated RBC % Seg Neutrophils # Seg Neutrophils # Man 14.8 H Lymphocytes # (Manual) 0.8 L Monocytes # (Manual) Eosinophils # (Manual) PT INR APTT D-Dimer Heparin Anti-Xa Level ABG pH POC ABG pCO2 POC ABG pO2 ABG pO2 ABG HCO3 ABG O2 Saturation ABG Base Excess ABG Hemoglobin ABG Oxyhemoglobin ABG Sodium ABG Potassium ABG Chloride ABG Glucose Oxyhemoglobin Carboxyhemoglobin Sodium Potassium Chloride 93.3 L Carbon Dioxide 43 H* BUN Creatinine 0.3 L Glucose 260 H POC Glucose 245 H Lactic Acid Calcium Magnesium Ferritin Total Bilirubin Direct Bilirubin AST ALT Alkaline Phosphatase Lactate Dehydrogenase C-Reactive Protein Total Protein Albumin 2.8 L Triglycerides 452 H Lipase Arterial Blood Glucose Arterial Blood Ionized Calcium Urine WBC (Auto) Coronavirus (PCR) SARS-CoV-2 IgG Ab Crossmatch 06/30/20 07/01/20 07/01/20 17:32 00:02 05:02 WBC RBC Hgb Hct MCV MCH MCHC RDW Lymph % (Auto) Lymph # (Auto) [place] # (Auto) Baso # (Auto) Seg Neutrophils % Seg Neuts % (Manual) Lymphocytes % (Manual) Nucleated RBC % Seg Neutrophils # Seg Neutrophils # Man Lymphocytes # (Manual) Monocytes # (Manual) Eosinophils # (Manual) PT INR APTT D-Dimer Heparin Anti-Xa Level ABG pH POC ABG pCO2 58.1 H POC ABG pO2 ABG pO2 ABG HCO3 ABG O2 Saturation ABG Base Excess ABG Hemoglobin 11.2 L ABG Oxyhemoglobin ABG Sodium 132.7 L ABG Potassium ABG Chloride 92.0 L ABG Glucose 238 H Oxyhemoglobin Carboxyhemoglobin Sodium Potassium Chloride Carbon Dioxide BUN Creatinine Glucose POC Glucose 209 H 208 H Lactic Acid Calcium Magnesium Ferritin Total Bilirubin Direct Bilirubin AST ALT Alkaline Phosphatase Lactate Dehydrogenase C-Reactive Protein Total Protein Albumin Triglycerides Lipase Arterial Blood Glucose 238 H Arterial Blood Ionized Calcium Urine WBC (Auto) Coronavirus (PCR) SARS-CoV-2 IgG Ab Crossmatch 07/01/20 07/01/20 07/01/20 06:16 06:41 06:41 WBC 18.1 H RBC 2.33 L Hgb 7.1 L Hct 21.3 L D MCV MCH MCHC RDW Lymph % (Auto) Lymph # (Auto) [place] # (Auto) Baso # (Auto) Seg Neutrophils % Seg Neuts % (Manual) 82.0 H Lymphocytes % (Manual) 7.0 L Nucleated RBC % 1.0 H Seg Neutrophils # Seg Neutrophils # Man 14.8 H Lymphocytes # (Manual) Monocytes # (Manual) 1.1 H Eosinophils # (Manual) 0.5 H PT INR APTT D-Dimer Heparin Anti-Xa Level < 0.10 L ABG pH POC ABG pCO2 POC ABG pO2 ABG pO2 ABG HCO3 ABG O2 Saturation ABG Base Excess ABG Hemoglobin ABG Oxyhemoglobin ABG Sodium ABG Potassium ABG Chloride ABG Glucose Oxyhemoglobin Carboxyhemoglobin Sodium Potassium Chloride Carbon Dioxide BUN Creatinine Glucose POC Glucose 180 H Lactic Acid Calcium Magnesium Ferritin Total Bilirubin Direct Bilirubin AST ALT Alkaline Phosphatase Lactate Dehydrogenase C-Reactive Protein Total Protein Albumin Triglycerides Lipase Arterial Blood Glucose Arterial Blood Ionized Calcium Urine WBC (Auto) Coronavirus (PCR) SARS-CoV-2 IgG Ab Crossmatch 07/01/20 07/01/20 07/01/20 08:11 12:04 16:16 WBC RBC Hgb Hct MCV MCH MCHC RDW Lymph % (Auto) Lymph # (Auto) [place] # (Auto) Baso # (Auto) Seg Neutrophils % Seg Neuts % (Manual) Lymphocytes % (Manual) Nucleated RBC % Seg Neutrophils # Seg Neutrophils # Man Lymphocytes # (Manual) Monocytes # (Manual) Eosinophils # (Manual) PT INR APTT D-Dimer Heparin Anti-Xa Level 1.02 H ABG pH POC ABG pCO2 POC ABG pO2 ABG pO2 ABG HCO3 ABG O2 Saturation ABG Base Excess ABG Hemoglobin ABG Oxyhemoglobin ABG Sodium ABG Potassium ABG Chloride ABG Glucose Oxyhemoglobin Carboxyhemoglobin Sodium 135 L Potassium 3.0 L Chloride 93.1 L Carbon Dioxide 40 H BUN Creatinine 0.3 L Glucose 140 H POC Glucose 223 H Lactic Acid Calcium Magnesium Ferritin Total Bilirubin Direct Bilirubin AST ALT Alkaline Phosphatase Lactate Dehydrogenase C-Reactive Protein Total Protein Albumin Triglycerides Lipase Arterial Blood Glucose Arterial Blood Ionized Calcium Urine WBC (Auto) Coronavirus (PCR) SARS-CoV-2 IgG Ab Crossmatch 07/01/20 07/01/20 07/02/20 17:09 23:19 00:56 WBC RBC Hgb Hct MCV MCH MCHC RDW Lymph % (Auto) Lymph # (Auto) [place] # (Auto) Baso # (Auto) Seg Neutrophils % Seg Neuts % (Manual) Lymphocytes % (Manual) Nucleated RBC % Seg Neutrophils # Seg Neutrophils # Man Lymphocytes # (Manual) Monocytes # (Manual) Eosinophils # (Manual) PT INR APTT D-Dimer Heparin Anti-Xa Level 0.22 L ABG pH POC ABG pCO2 POC ABG pO2 ABG pO2 ABG HCO3 ABG O2 Saturation ABG Base Excess ABG Hemoglobin ABG Oxyhemoglobin ABG Sodium ABG Potassium ABG Chloride ABG Glucose Oxyhemoglobin Carboxyhemoglobin Sodium Potassium Chloride Carbon Dioxide BUN Creatinine Glucose POC Glucose 233 H 255 H Lactic Acid Calcium Magnesium Ferritin Total Bilirubin Direct Bilirubin AST ALT Alkaline Phosphatase Lactate Dehydrogenase C-Reactive Protein Total Protein Albumin Triglycerides Lipase Arterial Blood Glucose Arterial Blood Ionized Calcium Urine WBC (Auto) Coronavirus (PCR) SARS-CoV-2 IgG Ab Crossmatch 07/02/20 07/02/2007/02/20 03:51 05:35 11:39 WBC RBC Hgb Hct MCV MCH MCHC RDW Lymph % (Auto) Lymph # (Auto) [place] # (Auto) Baso # (Auto) Seg Neutrophils % Seg Neuts % (Manual) Lymphocytes % (Manual) Nucleated RBC % Seg Neutrophils # Seg Neutrophils # Man Lymphocytes # (Manual) Monocytes # (Manual) Eosinophils # (Manual) PT INR APTT D-Dimer Heparin Anti-Xa Level ABG pH POC ABG pCO2 54.9 H POC ABG pO2 52.1 L ABG pO2 ABG HCO3 ABG O2 Saturation ABG Base Excess ABG Hemoglobin 11.9 L ABG Oxyhemoglobin 82.8 L ABG Sodium 130.2 L ABG Potassium ABG Chloride 92.0 L ABG Glucose 249 H Oxyhemoglobin Carboxyhemoglobin 1.9 H Sodium Potassium Chloride Carbon Dioxide BUN Creatinine Glucose POC Glucose 205 H 235 H Lactic Acid Calcium Magnesium Ferritin Total Bilirubin Direct Bilirubin AST ALT Alkaline Phosphatase Lactate Dehydrogenase C-Reactive Protein Total Protein Albumin Triglycerides Lipase Arterial Blood Glucose 249 H Arterial Blood Ionized Calcium Urine WBC (Auto) Coronavirus (PCR) SARS-CoV-2 IgG Ab Crossmatch 07/02/20 07/02/20 16:08 16:08 WBC 19.8 H RBC 3.28 L Hgb 10.7 L D Hct 32.7 L D MCV 100 H MCH 33 H MCHC RDW 17.2 H Lymph % (Auto) Lymph # (Auto) [place] # (Auto) Baso # (Auto) Seg Neutrophils % Seg Neuts % (Manual) Lymphocytes % (Manual) Nucleated RBC % Seg Neutrophils # Seg Neutrophils # Man Lymphocytes # (Manual) Monocytes # (Manual) Eosinophils # (Manual) PT INR APTT D-Dimer Heparin Anti-Xa Level ABG pH POC ABG pCO2 POC ABG pO2 ABG pO2 ABG HCO3 ABG O2 Saturation ABG Base Excess ABG Hemoglobin ABG Oxyhemoglobin ABG Sodium ABG Potassium ABG Chloride ABG Glucose Oxyhemoglobin Carboxyhemoglobin Sodium 136 L Potassium Chloride 92.4 L Carbon Dioxide 35 H BUN Creatinine 0.3 L Glucose 203 H POC Glucose Lactic Acid Calcium Magnesium Ferritin Total Bilirubin Direct Bilirubin AST ALT Alkaline Phosphatase Lactate Dehydrogenase C-Reactive Protein Total Protein Albumin Triglycerides Lipase Arterial Blood Glucose Arterial Blood Ionized Calcium Urine WBC (Auto) Coronavirus (PCR) SARS-CoV-2 IgG Ab Crossmatch Chest x-ray: image reviewed (chest tube in place) Allied health notes reviewed: nursing
[2020-07-02] MEDS: QUEtiapine 200 MG TAB PO SCH (22:10)
[2020-07-02] MEDS: INSULIN GLARGINE 100 UNITS/ML SUB-Q SCH (22:10)
--- NOTE | 2020-07-02 23:30 | Progress Note ---
Assessment and Plan - Acute hypoxemic respiratory failure; Patient intubated and on vent support --Severe COVID-19 bilateral pneumonia Coronavirus protocol: IV steroid therapy, completed remdesivir, isolation precautions, contact precautions, prone positioning while in bed, pulmonary toilet. ID following SARS CoV-2 IgG positive patient is NOT a candidate for COVID convalescent plasma Covid test came negative on 06/30/20 --Severe sepsis/septic shock, due to COVID 19 PNA cont pressors as needed -- Acute kidney injury (SEN) , likely vasomotor nephropathy Resolved, IV fluids, avoid nephrotoxins --Acute on chronic anemia Guaiac test positive GI evaluation PPIs Continue to monitor -- Elevated liver function tests Suspected secondary to alcoholic liver disease. Supportive care, alcohol cessation, patient counseled. --Colonic pseudoobstruction likely from acute on chronic illness GI evaluation -recommend stool softeners Serial abdominal x-rays Monitor electrolytes and replete --History of alcohol dependence, status post CIWA protocol along with thiamine folic acid and multivitamin --right pneumothorax, s/p right chest tube placed on 06/21/20 Patient will need chest tube until patient is extubated -- DVT prophylaxis On therapeutic Lovenox The high probability of a clinically significant, sudden or life threatening deterioration of the [respiratory] system(s) required my full and direct attention, intervention and personal management. The aggregate critical care time was [31] minutes. This time is in addition to time spent performing reported procedures but includes the following: [x] Data Review and interpretation [x] Patient assessment and monitoring of vital signs [x] Documentation [x] Medication orders and management Brief History: 50 YO Male with Obesity, ETOH Dependence presents to ED for evaluation for shortness of breath, generalized weakness, fatigue, malaise, body aches, decreased exercise tolerance over the past 5 days. EMS was notified and upon arrival the patient was found to be in distress with a pulse oximetry of 76% on room air as well as fever to 103 F. In the ER chest x-ray and was found to have bilateral pneumonia. Patient admitted to medical floor and initiated on pneumonia protocol as well as COVID-19 protocol. Patient reports being diagnosed with coronavirus 2 days ago. 05/10- 05/17: follow inflammatory markers, consulted ID/pulmonary. patient on high flow O2 05/18/20; patient feels slightly better still hypoxic, requiring continuous high flow oxygen and BiPAP Respiratory team trying to wean 05/19/20; patient is severely hypoxemic requiring continuous BiPAP today, complains of generalized weakness Trying to wean off high flow oxygen, patient is in isolation 05/20/2020; patient remains on high flow oxygen/BiPAP/100% nonrebreather. Still is hypoxemic Has sinus tachycardia patient in mild distress Wean off high flow oxygen as tolerated, pulmonary critical following 05/21/20; patient is critically ill, on continuous BiPAP remains hypoxemic in m ild distress. Patient has severe Covid Pneumonia with persistent hypoxemia and poor prognosis. 05/22/2020: Patient was intubated last night because of persistent hypoxemia. 05/23-06/15: Remains on ventilatory support, unable to wean off from the vent. 06/16/2020. Patient currently on mechanical ventilation with AC mode rate 30, tidal volume 500, FiO2 70% and PEEP of 16. Continue anticoagulation with Lovenox 110 milligrams subcu every 12 hours. Wean sedation of fentanyl/Versed as needed. Currently with IV steroids of Solu-Medrol 40 mg IV every 12 hours. Patient will likely need tracheostomy per pulmonary recommendations. Continue pressors to maintain MAP > 65. 06/17/2020. Patient currently on mechanical ventilation with AC mode rate 30, tidal volume 500, FiO2 65% and PEEP of 16. Continue anticoagulation with Lovenox 110 milligrams subcu every 12 hours. Wean sedation of fentanyl/Versed as needed. Currently with IV steroids of Solu-Medrol 40 mg IV every 12 hours. Patient will likely need tracheostomy per pulmonary recommendations. 06/18/2020. Patient currently on mechanical ventilation with AC mode rate 30, tidal volume 500, FiO2 70% and PEEP of 16. Continue Lovenox for anticoagulation and fentanyl/Versed for sedation. Wean steroids per pulmonary. CIWA protocol initiated for history of EtOH dependence 06/19/2020. Patient currently on mechanical ventilation with AC mode rate 30, tidal volume 500, FiO2 60% and PEEP of 16. Wean FiO2 as tolerated per protocol. Continue Lovenox for anticoagulation and fentanyl/Versed for sedation. Wean steroids per pulmonary. CIWA protocol initiated for history of EtOH dependence 06/20/2020. Patient currently on mechanical ventilation with AC mode rate 30, tidal volume 500, FiO2 60% and PEEP of 16. Wean FiO2 as tolerated, SBT per protocol. Continue Lovenox for anticoagulation and fentanyl/Versed for sedation. Wean steroids per pulmonary. Continue pressors to maintain MAP > 65 mmHg. Patient remains on ETT. Consider tracheostomy placement once oxygenation is better per pulmonary. CIWA protocol initiated for history of EtOH dependence. 06/21/2020. Patient with a small apical pneumothorax discovered yesterday. General surgery consulted and consider placing chest tube. Follow-up serial chest x-ray patient currently on mechanical ventilation with AC mode rate 30, tidal volume 500, FiO2 60% and PEEP of 16. Wean FiO2 as tolerated, SBT per protocol. Continue Lovenox for anticoagulation and fentanyl/Versed for sedation. Wean steroids per pulmonary. Continue pressors to maintain MAP > 65 mmHg. Patient remains on ETT. Consider tracheostomy placement once oxygenation is better per pulmonary. CIWA protocol initiated for history of EtOH dependence. 06/22. Status post right chest tube placement yesterday. Remains mechanically ventilated on pressors. Examination today shows slightly distended abdomen. KUB ordered. Awaiting stool guaiac. Plan to get a GI evaluation. 06/23. Has colonic distention on the x-ray. Discussed with GI-advised stool softeners for now and close monitoring. No indication for colonic decompression at this time. Guaiac test is positive. No emergent indication for endoscopy at this point as per GI. Continue to monitor hemoglobin. 06/24. Remains intubated. On pressors. GI following for positive guaiac stool and anemia, and colonic distention. 06/25. Repeat abdominal xray ordered. Remains on mechanical ventilation. 06/26. Abdominal xray - resolved colonic distension. Mechanically ventilated. 06/27. Plan for trach and PEG. 06/28: Awaiting trach and Peg. Some Bm REPORTED, will continue to monitor 06/29: Resume care, patient remains on ventilator support, waiting on trach and PEG placement. BM reported by the RN, continue to monitor. 06/30: Unable to wean off from vent, patient will need trach and PEG. Continue supportive care, tolerating tube feed. Monitor CBC and BMP 07/01: Continue mechanical ventilation, tube feeding as tolerated. Sedation as needed per mechanical ventilation protocol. Waiting on trach and PEG placement. 07/02: Continue current management, tube feeding, monitor CBC and BMP. Need trach and PEG-waiting on scheduling. Pulmonary critical care following. Subjective Date of service: 07/02/20 Principal diagnosis: Ac hypoxemic resp failure; COVID-19; Severe Sepsis; Shaggy PNA; Alcohol Abuse Interval history: Patient seen and examined Patient remains on mechanical ventilation Chest tube in place Tolerating tube feeding Objective - Exam Narrative Exam: General appearance: Present: no distress, obese, intubated - EENT Eyes: Present: PERRL ENT: Et tube in place - Neck Neck: Present: supple, - Respiratory Respiratory effort: on mechanical ventilation Respiratory: bilateral: diminished, rhonchi, CT tube in place - Cardiovascular Heart Sounds: Present: S1 & S2. Absent: rub, click - Extremities Extremities: pulses symmetrical, No edema Peripheral Pulses: within normal limits - Abdominal General gastrointestinal: Present: soft, non-tender, mild distended, normal bowel sounds Male genitourinary: Present: normal - Integumentary Integumentary: Present: clear, warm, dry - Musculoskeletal Musculoskeletal: generalized weakness - Psychiatric Psychiatric: Unable to assess - Neurologic Neurologic: Intubated - Constitutional Vitals: Vital Signs - 12hr 07/02/20 07/02/20 07/02/20 11:31 11:45 12:00 Temperature 99.4 F Pulse Rate 146 H 140 H 144 H Pulse Rate [ 143 H From Monitor] Respiratory 37 H 37 H 36 H Rate Respiratory Rate [ Generalized] Blood Pressure 166/86 166/86 O2 Sat by Pulse 97 97 98 Oximetry 07/02/20 07/02/20 07/02/20 12:01 12:15 12:30 Temperature Pulse Rate 143 H 137 H 140 H Pulse Rate [ From Monitor] Respiratory 36 H 34 H 36 H Rate Respiratory Rate [ Generalized] Blood Pressure 157/83 157/83 142/80 O2 Sat by Pulse 98 99 99 Oximetry 07/02/20 07/02/20 07/02/20 12:36 12:45 13:00 Temperature Pulse Rate 140 H 133 H 128 H Pulse Rate [ From Monitor] Respiratory 29 H 24 Rate Respiratory Rate [ Generalized] Blood Pressure 142/80 142/80 118/70 O2 Sat by Pulse 100 100 100 Oximetry 07/02/20 07/02/20 07/02/20 13:15 13:30 13:45 Temperature Pulse Rate 122 H 117 H 121 H Pulse Rate [ From Monitor] Respiratory 24 22 17 Rate Respiratory Rate [ Generalized] Blood Pressure 118/70 85/58 85/58 O2 Sat by Pulse 100 100 100 Oximetry 07/02/20 07/02/20 07/02/20 14:00 14:15 14:30 Temperature Pulse Rate 127 H 122 H 118 H Pulse Rate [ From Monitor] Respiratory 22 18 25 H Rate Respiratory Rate [ Generalized] Blood Pressure 124/60 124/60 93/57 O2 Sat by Pulse 100 100 100 Oximetry 07/02/20 07/02/20 07/02/20 14:45 15:00 15:15 Temperature Pulse Rate 120 H 119 H 132 H Pulse Rate [ From Monitor] Respiratory 30 H 27 H 33 H Rate Respiratory Rate [ Generalized] Blood Pressure 93/57 103/71 103/71 O2 Sat by Pulse 100 99 99 Oximetry 07/02/20 07/02/20 07/02/20 15:30 15:45 16:00 Temperature 98.5 F Pulse Rate 125 H 121 H 121 H Pulse Rate [ 125 H From Monitor] Respiratory 25 H 26 H 28 H Rate Respiratory Rate [ Generalized] Blood Pressure 107/69 107/69 109/61 O2 Sat by Pulse 98 95 91 Oximetry 07/02/20 07/02/20 07/02/20 16:15 16:27 16:31 Temperature Pulse Rate 137 H 131 H 135 H Pulse Rate [ From Monitor] Respiratory 31 H 32 H Rate Respiratory Rate [ Generalized] Blood Pressure 109/61 129/47 117/71 O2 Sat by Pulse 89 98 94 Oximetry 07/02/20 07/02/20 07/02/20 16:45 17:00 17:15 Temperature Pulse Rate 121 H 127 H 128 H Pulse Rate [ From Monitor] Respiratory 26 H 30 H 31 H Rate Respiratory Rate [ Generalized] Blood Pressure 117/71 119/73 119/73 O2 Sat by Pulse 100 100 100 Oximetry 07/02/20 07/02/20 07/02/20 17:30 17:45 18:00 Temperature Pulse Rate 123 H 132 H 121 H Pulse Rate [ From Monitor] Respiratory 21 22 26 H Rate Respiratory Rate [ Generalized] Blood Pressure 122/67 122/67 112/70 O2 Sat by Pulse 100 100 100 Oximetry 07/02/20 07/02/20 07/02/20 18:15 18:30 18:45 Temperature Pulse Rate 126 H 127 H 122 H Pulse Rate [ From Monitor] Respiratory 30 H 34 H 29 H Rate Respiratory Rate [ Generalized] Blood Pressure 112/70 106/72 111/67 O2 Sat by Pulse 100 100 100 Oximetry 07/02/20 07/02/20 07/02/20 19:00 19:15 19:25 Temperature Pulse Rate 124 H 131 H 120 H Pulse Rate [ From Monitor] Respiratory 31 H 22 Rate Respiratory Rate [ Generalized] Blood Pressure 104/74 104/74 118/79 O2 Sat by Pulse 100 100 100 Oximetry 07/02/20 07/02/20 07/02/20 19:30 19:45 20:00 Temperature 99.9 F H Pulse Rate 119 H 124 H 131 H Pulse Rate [ 137 H From Monitor] Respiratory 24 31 H 30 H Rate Respiratory Rate [ Generalized] Blood Pressure 120/73 120/73 O2 Sat by Pulse 100 100 99 Oximetry 07/02/20 07/02/20 07/02/20 20:01 20:15 20:30 Temperature Pulse Rate 131 H 139 H 129 H Pulse Rate [ From Monitor] Respiratory 34 H 22 29 H Rate Respiratory Rate [ Generalized] Blood Pressure 143/80 143/80 138/86 O2 Sat by Pulse 100 99 100 Oximetry 07/02/20 07/02/20 07/02/20 20:45 21:01 21:15 Temperature Pulse Rate 126 H 136 H 137 H Pulse Rate [ From Monitor] Respiratory 30 H 31 H 35 H Rate Respiratory Rate [ Generalized] Blood Pressure 138/86 128/71 128/71 O2 Sat by Pulse 100 98 98 Oximetry 07/02/20 07/02/20 07/02/20 21:31 21:45 22:00 Temperature Pulse Rate 125 H 137 H Pulse Rate [ From Monitor] Respiratory 30 H 23 Rate Respiratory 30 H Rate [ Generalized] Blood Pressure 120/64 120/64 O2 Sat by Pulse 100 100 Oximetry 07/02/20 07/02/20 07/02/20 22:01 22:15 22:31 Temperature Pulse Rate 127 H 126 H 129 H Pulse Rate [ From Monitor] Respiratory 24 27 H 26 H Rate Respiratory Rate [ Generalized] Blood Pressure 127/90 127/90 130/86 O2 Sat by Pulse 100 100 100 Oximetry 07/02/20 07/02/20 22:45 23:01 Temperature Pulse Rate 128 H 133 H Pulse Rate [ From Monitor] Respiratory 23 28 H Rate Respiratory Rate [ Generalized] Blood Pressure 130/86 121/75 O2 Sat by Pulse 100 100 Oximetry - Labs CBC & Chem 7: 07/02/20 16:08 07/02/20 16:08 Labs: Abnormal lab results 07/02/20 07/02/20 07/02/20 Range/Units 00:56 03:51 05:35 WBC (4.5-11.0) K/mm3 RBC (3.65-5.03) M/mm3 Hgb (11.8-15.2) gm/dl Hct (35.5-45.6) % MCV (84-94) fl MCH (28-32) pg RDW (13.2-15.2) % Heparin Anti-Xa Level 0.22 L (0.3-0.7) U.I./ml POC ABG pCO2 54.9 H (32.0-48.0) mmHg POC ABG pO2 52.1 L (83-108) mmHg ABG Hemoglobin 11.9 L (12.0-17.5) ABG Oxyhemoglobin 82.8 L (94-98) ABG Sodium 130.2 L (136.0-145.0) mmol/L ABG Chloride 92.0 L (98-107) mmol/L ABG Glucose 249 H (65-95) mg/dL Carboxyhemoglobin 1.9 H (0.5-1.5) Sodium (137-145) mmol/L Chloride (98-107) mmol/L Carbon Dioxide (22-30) mmol/L Creatinine (0.8-1.3) mg/dL Glucose (75-100) mg/dL POC Glucose 205 H (70-105) mg/dL Arterial Blood Glucose 249 H (65-95) mg/dL 07/02/20 07/02/20 07/02/20 Range/Units 11:39 16:08 16:08 WBC 19.8 H (4.5-11.0) K/mm3 RBC 3.28 L (3.65-5.03) M/mm3 Hgb 10.7 L D (11.8-15.2) gm/dl Hct 32.7 L D (35.5-45.6) % MCV 100 H (84-94) fl MCH 33 H (28-32) pg RDW 17.2 H (13.2-15.2) % Heparin Anti-Xa Level (0.3-0.7) U.I./ml POC ABG pCO2 (32.0-48.0) mmHg POC ABG pO2 (83-108) mmHg ABG Hemoglobin (12.0-17.5) ABG Oxyhemoglobin (94-98) ABG Sodium (136.0-145.0) mmol/L ABG Chloride (98-107) mmol/L ABG Glucose (65-95) mg/dL Carboxyhemoglobin (0.5-1.5) Sodium 136 L (137-145) mmol/L Chloride 92.4 L (98-107) mmol/L Carbon Dioxide 35 H (22-30) mmol/L Creatinine 0.3 L (0.8-1.3) mg/dL Glucose 203 H (75-100) mg/dL POC Glucose 235 H (70-105) mg/dL Arterial Blood Glucose (65-95) mg/dL 07/02/20 Range/Units 17:54 WBC (4.5-11.0) K/mm3 RBC (3.65-5.03) M/mm3 Hgb (11.8-15.2) gm/dl Hct (35.5-45.6) % MCV (84-94) fl MCH (28-32) pg RDW (13.2-15.2) % Heparin Anti-Xa Level (0.3-0.7) U.I./ml POC ABG pCO2 (32.0-48.0) mmHg POC ABG pO2 (83-108) mmHg ABG Hemoglobin (12.0-17.5) ABG Oxyhemoglobin (94-98) ABG Sodium (136.0-145.0) mmol/L ABG Chloride (98-107) mmol/L ABG Glucose (65-95) mg/dL Carboxyhemoglobin (0.5-1.5) Sodium (137-145) mmol/L Chloride (98-107) mmol/L Carbon Dioxide (22-30) mmol/L Creatinine (0.8-1.3) mg/dL Glucose (75-100) mg/dL POC Glucose 175 H (70-105) mg/dL Arterial Blood Glucose (65-95) mg/dL
[2020-07-02] MEDS: METOPROLOL TARTRATE 5 MG/5 ML INJ IV PRN (23:48)
[2020-07-03] MEDS: INSULIN LISPRO 100 UNIT/ML VIAL 3 mL SUB-Q SCH ×4 (00:21→18:14)
--- NOTE | 2020-07-03 02:51 | XRay Report ---
CHEST 1 VIEW [id number] INDICATION / CLINICAL INFORMATION: Chest tube; Pneumothorax surveillance COMPARISON: 06/30/2020 FINDINGS: SUPPORT DEVICES: Stable HEART / MEDIASTINUM: Stable LUNGS / PLEURA: Bilateral pulmonary infiltrates continue with slight worsening seen. No pneumothorax. ADDITIONAL FINDINGS: No significant additional findings. Signer Name: Cresencio Matthews MD Signed: 07/03/2020 2:47 AM Workstation Name: [id number]
[2020-07-03] MEDS: fentaNYL DRIP Premix 2,000 MCG/100 ML BAG IV SCH ×4 (04:24→20:37)
[2020-07-03] MEDS: HEPARIN/ 0.45% NACL DRIP 25,000 UNIT/500 ML BAG IV SCH (04:33)
[2020-07-03] MEDS: methylPREDNISolone Sod Succinate 40 MG/1 ML INJ IV SCH ×2 (06:18→18:14)
[2020-07-03] MEDS: PHENobarbital 20 MG/5 ML ORAL LIQD FEEDTUBE SCH ×3 (06:19→20:27)
[2020-07-03] MEDS: QUEtiapine 100 MG TAB PO SCH ×3 (08:33→20:26)
[2020-07-03] MEDS: QUEtiapine 200 MG TAB PO SCH ×3 (08:33→20:26)
[2020-07-03] MEDS: MIDODRINE 5 MG TAB PO SCH ×4 (08:34→16:54)
[2020-07-03] MEDS: METOPROLOL TARTRATE 5 MG/5 ML INJ IV PRN (09:03)
[2020-07-03] MEDS: LANSOPRAZOLE 30 MG SOLUTAB FEEDTUBE SCH (09:07)
[2020-07-03] MEDS: FOLIC ACID 1 MG TAB PO SCH (09:07)
[2020-07-03] MEDS: SENNOSIDES 8.6 MG TAB PO SCH ×2 (09:08→21:00)
[2020-07-03] MEDS: DOCUSATE SODIUM 100 MG/10 ML ORAL LIQD PO SCH ×2 (09:08→21:00)
[2020-07-03] MEDS: ALPRAZolam 0.25 MG TAB PO PRN (10:33)
[2020-07-03 13:22] LABS: Hematocrit 31.8 % (35.5-45.6); Hemoglobin 10.4 gm/dl (11.8-15.2); Mean Corpuscular HGB Conc 33 % (32-34); Mean Corpuscular Volume 102 fl (84-94); Platelet Count 316 K/mm3 (140-440); Red Blood Count 3.13 M/mm3 (3.65-5.03); Red Cell Distribution Width 17.2 % (13.2-15.2)
[2020-07-03 14:16] LABS: Blood Urea Nitrogen 16 mg/dL (9-20); Calcium 9.2 mg/dL (8.4-10.2); Hemolysis Index 4
[2020-07-03 14:17] LABS: BUN/Creatinine Ratio 53
[2020-07-03] MEDS: NORepinephrine/NS 4 MG-250 ML 4 MG/250 ML BAG IV SCH (14:38)
--- NOTE | 2020-07-03 18:04 | Progress Note ---
Assessment and Plan Acute hypoxemic respiratory failure due to COVID-19 Severe Sepsis Bilateral pneumonia Acute kidney injury (SEN) with acute tubular necrosis (ATN) Alcohol dependence Elevated liver function tests - moving all extremities & following commands; will cancel CT brain - reduced FiO2 to 45% - tracheostomy consult placed; repeat COVID test now negative - metoprolol 5 mg IV q6h prn pulse > 130/min - continue care as below otherwise; - continue Seroquel at 300 mg po tid - continue Precedex - prn 12 lead EKG to monitor QT - continue midodrine re: hypotension - keep peep at 8 - continue bid protonix - continue bowel regimen - continue to wean supplemental oxygen for target O2 sat's > 92% acutely - continue to wean Levophed for target MAP > 65 mmHg - tracheostomy placement once oxygenation better / more hemodynamically stable - he will need a tracheostomy once numbers better - continue Daily SAT and SBT assessment as tolerated - VAP bundle addressed - continue lung protective strategies - continue bronchodilators with pulmonary hygiene per RT - wean per pulmonary driven protocols otherwise - accuchecks with glycemic control per SSI (While critically ill target blood glucose of 140-180 mg/dL; avoid hypoglycemia) - sedation prn for target RASS -1 to -2 - continue enteral nutritional support at goal rate as tolerated - continue airborne and contact isolation - follow repeat COVID-19 testing - continue Zinc & Vit C supplementaion - continue systemic steroids for Asthma / severe COVID infection - Prone positioning as tolerated - continue empiric full dose anticoagulation re: elevated d-dimers / hypercoagulable state - NOT a candidate for COVID convalescent plasma - continue systemic steroids X >/= 10 days - completed remdesivir dosing (total 5 days) - empiric AB's coverage per ID rec's - accuchecks with glycemic control per SSI (While critically ill target blood glucose of 140-180 mg/dL; avoid hypoglycemia) - avoid nephrotoxins, renally dose all medications - continue to avoid benzodiazepine's, reduce the possibility of delirium - continue wound care per RN / WCN - prn analgesia per CPOT score - Maintenance of sleep-wake cycle, avoid delirium - continue to avoid benzodiazepine's, reduce the possibility of delirium - aspiration precautions - G.I. & VTE prophylaxis - PT/OT/ROM exercises - continue mobility protocols for pressure ulcer prophylaxis - Monitor hemodynamics closely - continue other care per attending / other consultants - discharge planning ongoing concurrently .... Re-evaluate in am & prn CONDITION: CRITICAL PROGNOSIS: GUARDED CODE STATUS: FULL CODE The high probability of a clinically significant, sudden or life-threatening deterioration of the [respiratory, cardiovascular, hematologic & neurologic] system(s) required my full and direct attention, intervention and personal management. The aggregate critical care time was [32] minutes without overlap. Time includes spent on; [x] Data Review and interpretation [x] Patient assessment and monitoring of vital signs [x] Documentation [x] Medication orders and management Subjective Date of service: 07/03/20 Principal diagnosis: Ac hypoxemic resp failure; COVID-19; Severe Sepsis; Shaggy PNA; Alcohol Abuse Interval history: Patient is seen today for: Acute hypoxemic respiratory failure due to COVID-19; Severe Sepsis; Bilateral pneumonia; Alcohol dependence; Elevated liver function tests Seen and examined at bedside; 24hour events reviewed; nursing and respiratory care staff consulted; no adverse overnight events reported to me; resting in bed; remains on MVS; chest tube in place; no emesis or overt aspiration; afebrile; FiO2 at 50% Objective Vital Signs - 12hr 07/03/20 07/03/20 07/03/20 06:15 06:30 06:45 Temperature Pulse Rate 124 H 124 H 121 H Pulse Rate [ From Monitor] Respiratory 28 H 28 H 27 H Rate Blood Pressure 133/88 125/84 125/84 O2 Sat by Pulse 97 91 98 Oximetry 07/03/20 07/03/20 07/03/20 07:01 07:15 07:30 Temperature Pulse Rate 108 H 120 H 121 H Pulse Rate [ From Monitor] Respiratory 15 30 H 30 H Rate Blood Pressure 97/56 97/56 O2 Sat by Pulse 94 97 98 Oximetry 07/03/20 07/03/20 07/03/20 07:45 08:00 08:01 Temperature 99.8 F H Pulse Rate 127 H 123 H Pulse Rate [ 123 H From Monitor] Respiratory 35 H 30 H 26 H Rate Blood Pressure 121/85 151/85 O2 Sat by Pulse 97 93 93 Oximetry 07/03/20 07/03/20 07/03/20 08:05 08:15 08:30 Temperature Pulse Rate 128 H 127 H 127 H Pulse Rate [ From Monitor] Respiratory 31 H 30 H Rate Blood Pressure 151/85 151/85 132/93 O2 Sat by Pulse 97 97 93 Oximetry 07/03/20 07/03/20 07/03/20 08:45 09:01 09:03 Temperature Pulse Rate 138 H 156 H 156 H Pulse Rate [ From Monitor] Respiratory 32 H 38 H Rate Blood Pressure 132/93 151/85 151/86 O2 Sat by Pulse 96 89 Oximetry 07/03/20 07/03/20 07/03/20 09:15 09:31 09:45 Temperature Pulse Rate 129 H 136 H 137 H Pulse Rate [ From Monitor] Respiratory 38 H 38 H 40 H Rate Blood Pressure 127/74 118/81 115/84 O2 Sat by Pulse 97 88 92 Oximetry 07/03/20 07/03/20 07/03/20 10:00 10:15 10:30 Temperature Pulse Rate 135 H 136 H 136 H Pulse Rate [ From Monitor] Respiratory 33 H 35 H 31 H Rate Blood Pressure 118/80 118/80 117/73 O2 Sat by Pulse 93 96 94 Oximetry 07/03/20 07/03/20 07/03/20 10:45 11:00 11:15 Temperature Pulse Rate 129 H 131 H 133 H Pulse Rate [ From Monitor] Respiratory 28 H 30 H 34 H Rate Blood Pressure 117/73 110/67 123/75 O2 Sat by Pulse 98 94 96 Oximetry 07/03/20 07/03/20 07/03/20 11:31 11:45 12:00 Temperature 99.7 F H Pulse Rate 136 H 140 H Pulse Rate [ From Monitor] Respiratory 31 H 42 H 30 H Rate Blood Pressure 135/93 135/93 O2 Sat by Pulse 89 93 93 Oximetry 07/03/20 07/03/20 07/03/20 12:01 12:15 12:30 Temperature Pulse Rate 115 H 108 H 117 H Pulse Rate [ From Monitor] Respiratory 41 H 22 20 Rate Blood Pressure 106/88 106/88 101/59 O2 Sat by Pulse 95 97 97 Oximetry 07/03/20 07/03/20 07/03/20 12:38 12:45 13:01 Temperature Pulse Rate 133 H 133 H 123 H Pulse Rate [ From Monitor] Respiratory 30 H 19 Rate Blood Pressure 101/59 101/59 107/63 O2 Sat by Pulse 98 99 94 Oximetry 07/03/20 07/03/20 07/03/20 13:15 13:30 13:45 Temperature Pulse Rate 123 H 122 H 105 H Pulse Rate [ From Monitor] Respiratory 19 24 18 Rate Blood Pressure 123/74 130/78 130/78 O2 Sat by Pulse 91 92 97 Oximetry 07/03/20 07/03/20 07/03/20 14:00 14:15 14:30 Temperature Pulse Rate 115 H 103 H 92 H Pulse Rate [ From Monitor] Respiratory 31 H 18 30 H Rate Blood Pressure 105/75 105/75 67/39 O2 Sat by Pulse 94 99 98 Oximetry 07/03/20 07/03/20 07/03/20 14:45 15:00 15:15 Temperature Pulse Rate 88 86 84 Pulse Rate [ From Monitor] Respiratory 30 H 30 H 30 H Rate Blood Pressure 69/43 82/50 86/56 O2 Sat by Pulse 98 100 100 Oximetry 07/03/20 07/03/20 07/03/20 15:30 15:45 16:00 Temperature Pulse Rate 83 83 Pulse Rate [ From Monitor] Respiratory 30 H 27 H 30 H Rate Blood Pressure 84/61 84/61 98/63 O2 Sat by Pulse 97 98 Oximetry 07/03/20 07/03/20 07/03/20 16:15 16:22 16:30 Temperature Pulse Rate 86 85 85 Pulse Rate [ From Monitor] Respiratory 30 H 30 H Rate Blood Pressure 102/72 106/69 106/69 O2 Sat by Pulse 99 99 Oximetry 07/03/20 16:45 Temperature Pulse Rate 86 Pulse Rate [ From Monitor] Respiratory 30 H Rate Blood Pressure 105/69 O2 Sat by Pulse 99 Oximetry Constitutional: no acute distress, other (middle aged obese male with mildly increased respiratory effort at rest on MVS) Eyes: non-icteric ENT: oropharynx moist, other (ETT 24 cm CHILO) Neck: supple, no JVD Effort: mildly labored Ascultation: Bilateral: diminished breath sounds, rhonchi (scant), other (right chest tube) Percussion: Bilateral: not dull Cardiovascular: regular rate and rhythm, other (No R/M) Gastrointestinal: normoactive bowel sounds, soft, non-tender, other (distended and firm) Integumentary: normal Extremities: no cyanosis, no edema, pulses normal, no ischemia or petechiae Neurologic: non-focal exam (non focal grossly; weak), pupils equal and round, CN II-XII normal Psychiatric: mood appropriate, affect normal CBC and BMP: 07/04/20 04:00 07/04/20 04:00 ABG, PT/INR, D-dimer: ABG ABG pH 7.468 (7.320-7.450) H 07/03/20 03:25 POC ABG pCO2 51.5 mmHg (32.0-48.0) H 07/03/20 03:25 ABG pCO2 69.8 mm Hg 06/22/20 03:50 POC ABG pO2 84.3 mmHg (83-108) 07/03/20 03:25 ABG pO2 89.6 mm Hg (80.0-90.0) 06/22/20 03:50 POC ABG HCO3 36.5 07/03/20 03:25 ABG O2 Saturation 97.1 % (95.0-99.0) 06/22/20 03:50 PT/INR, D-dimer PT 11.8 Sec. (12.2-14.9) L 06/22/20 14:29 INR 0.88 (0.87-1.13) 06/22/20 14:29 D-Dimer 1887.82 ng/mlDDU (0-234) H 05/20/20 08:16 Abnormal lab findings: Abnormal Labs 05/09/20 05/09/20 05/09/20 12:59 12:59 12:59 WBC 11.8 H RBC Hgb Hct MCV 96 H MCH 34 H MCHC 35 H RDW Lymph % (Auto) 6.9 L Lymph # (Auto) 0.8 L Frio # (Auto) Baso # (Auto) Seg Neutrophils % 87.5 H Seg Neuts % (Manual) Lymphocytes % (Manual) Nucleated RBC % Seg Neutrophils # 10.3 H Seg Neutrophils # Man Lymphocytes # (Manual) Monocytes # (Manual) Eosinophils # (Manual) PT INR APTT D-Dimer Heparin Anti-Xa Level ABG pH POC ABG pCO2 POC ABG pO2 ABG pO2 ABG HCO3 ABG O2 Saturation ABG Base Excess ABG Hemoglobin ABG Oxyhemoglobin ABG Sodium ABG Potassium ABG Chloride ABG Glucose Oxyhemoglobin Carboxyhemoglobin Sodium 130 L Potassium 3.5 L Chloride 86.4 L Carbon Dioxide BUN 33 H Creatinine 2.3 H Glucose 156 H POC Glucose Lactic Acid Calcium Magnesium Ferritin Total Bilirubin 3.40 H Direct Bilirubin 1.7 H AST 385 H ALT 134 H Alkaline Phosphatase Lactate Dehydrogenase C-Reactive Protein Total Protein Albumin 3.0 L Triglycerides Lipase Arterial Blood Glucose Arterial Blood Ionized Calcium Urine WBC (Auto) Coronavirus (PCR) SARS-CoV-2 IgG Ab Crossmatch 05/09/20 05/09/20 05/09/20 12:59 12:59 12:59 WBC RBC Hgb Hct MCV MCH MCHC RDW Lymph % (Auto) Lymph # (Auto) Frio # (Auto) Baso # (Auto) Seg Neutrophils % Seg Neuts % (Manual) Lymphocytes % (Manual) Nucleated RBC % Seg Neutrophils # Seg Neutrophils # Man Lymphocytes # (Manual) Monocytes # (Manual) Eosinophils # (Manual) PT INR APTT D-Dimer 3242.51 H Heparin Anti-Xa Level ABG pH POC ABG pCO2 POC ABG pO2 ABG pO2 ABG HCO3 ABG O2 Saturation ABG Base Excess ABG Hemoglobin ABG Oxyhemoglobin ABG Sodium ABG Potassium ABG Chloride ABG Glucose Oxyhemoglobin Carboxyhemoglobin Sodium Potassium Chloride Carbon Dioxide BUN Creatinine Glucose 158 H POC Glucose Lactic Acid 3.50 H* Calcium Magnesium Ferritin Total Bilirubin Direct Bilirubin AST ALT Alkaline Phosphatase Lactate Dehydrogenase 2166 H C-Reactive Protein 39.00 H Total Protein Albumin Triglycerides Lipase Arterial Blood Glucose Arterial Blood Ionized Calcium Urine WBC (Auto) Coronavirus (PCR) SARS-CoV-2 IgG Ab Crossmatch 05/09/20 05/09/20 05/09/20 12:59 14:20 14:20 WBC RBC Hgb Hct MCV MCH MCHC RDW Lymph % (Auto) Lymph # (Auto) Frio # (Auto) Baso # (Auto) Seg Neutrophils % Seg Neuts % (Manual) Lymphocytes % (Manual) Nucleated RBC % Seg Neutrophils # Seg Neutrophils # Man Lymphocytes # (Manual) Monocytes # (Manual) Eosinophils # (Manual) PT INR APTT D-Dimer 2861.78 H Heparin Anti-Xa Level ABG pH POC ABG pCO2 POC ABG pO2 ABG pO2 ABG HCO3 ABG O2 Saturation ABG Base Excess ABG Hemoglobin ABG Oxyhemoglobin ABG Sodium ABG Potassium ABG Chloride ABG Glucose Oxyhemoglobin Carboxyhemoglobin Sodium Potassium Chloride Carbon Dioxide BUN Creatinine Glucose POC Glucose Lactic Acid 2.20 H* Calcium Magnesium Ferritin 36814.0 H Total Bilirubin Direct Bilirubin AST ALT Alkaline Phosphatase Lactate Dehydrogenase C-Reactive Protein Total Protein Albumin Triglycerides Lipase Arterial Blood Glucose Arterial Blood Ionized Calcium Urine WBC (Auto) Coronavirus (PCR) SARS-CoV-2 IgG Ab Crossmatch 05/09/20 05/09/20 05/09/20 14:20 14:20 15:56 WBC RBC Hgb Hct MCV MCH MCHC RDW Lymph % (Auto) Lymph # (Auto) Frio # (Auto) Baso # (Auto) Seg Neutrophils % Seg Neuts % (Manual) Lymphocytes % (Manual) Nucleated RBC % Seg Neutrophils # Seg Neutrophils # Man Lymphocytes # (Manual) Monocytes # (Manual) Eosinophils # (Manual) PT INR APTT D-Dimer Heparin Anti-Xa Level ABG pH POC ABG pCO2 POC ABG pO2 57.3 L ABG pO2 ABG HCO3 ABG O2 Saturation ABG Base Excess ABG Hemoglobin ABG Oxyhemoglobin 86.3 L ABG Sodium 129.9 L ABG Potassium ABG Chloride ABG Glucose 146 H Oxyhemoglobin Carboxyhemoglobin Sodium Potassium Chloride Carbon Dioxide BUN Creatinine Glucose 143 H POC Glucose Lactic Acid Calcium Magnesium Ferritin 51119.0 H Total Bilirubin Direct Bilirubin AST ALT Alkaline Phosphatase Lactate Dehydrogenase 1953 H C-Reactive Protein 33.50 H Total Protein Albumin Triglycerides Lipase Arterial Blood Glucose 146 H Arterial Blood Ionized Calcium 3.9 L Urine WBC (Auto) Coronavirus (PCR) SARS-CoV-2 IgG Ab Crossmatch 05/10/20 05/10/20 05/10/20 10:32 10:32 18:50 WBC 15.4 H RBC Hgb Hct MCV 97 H MCH 33 H MCHC RDW 13.1 L Lymph % (Auto) Lymph # (Auto) Frio # (Auto) Baso # (Auto) Seg Neutrophils % Seg Neuts % (Manual) 89.0 H Lymphocytes % (Manual) 8.0 L Nucleated RBC % Seg Neutrophils # Seg Neutrophils # Man 13.7 H Lymphocytes # (Manual) Monocytes # (Manual) Eosinophils # (Manual) PT INR APTT D-Dimer Heparin Anti-Xa Level ABG pH POC ABG pCO2 POC ABG pO2 ABG pO2 ABG HCO3 ABG O2 Saturation ABG Base Excess ABG Hemoglobin ABG Oxyhemoglobin ABG Sodium ABG Potassium ABG Chloride ABG Glucose Oxyhemoglobin Carboxyhemoglobin Sodium 136 L Potassium Chloride 97.4 L Carbon Dioxide BUN 37 H Creatinine 1.7 H Glucose 209 H POC Glucose Lactic Acid Calcium Magnesium Ferritin > 2000.0 H Total Bilirubin Direct Bilirubin AST ALT Alkaline Phosphatase Lactate Dehydrogenase C-Reactive Protein Total Protein Albumin Triglycerides Lipase Arterial Blood Glucose Arterial Blood Ionized Calcium Urine WBC (Auto) Coronavirus (PCR) SARS-CoV-2 IgG Ab Crossmatch 05/10/20 05/10/20 05/10/20 18:50 19:00 Unknown WBC RBC Hgb Hct MCV MCH MCHC RDW Lymph % (Auto) Lymph # (Auto) Frio # (Auto) Baso # (Auto) Seg Neutrophils % Seg Neuts % (Manual) Lymphocytes % (Manual) Nucleated RBC % Seg Neutrophils # Seg Neutrophils # Man Lymphocytes # (Manual) Monocytes # (Manual) Eosinophils # (Manual) PT INR APTT D-Dimer > 36692 H Heparin Anti-Xa Level ABG pH POC ABG pCO2 POC ABG pO2 ABG pO2 ABG HCO3 ABG O2 Saturation ABG Base Excess ABG Hemoglobin ABG Oxyhemoglobin ABG Sodium ABG Potassium ABG Chloride ABG Glucose Oxyhemoglobin Carboxyhemoglobin Sodium Potassium Chloride Carbon Dioxide BUN Creatinine Glucose POC Glucose Lactic Acid Calcium Magnesium Ferritin Total Bilirubin Direct Bilirubin AST ALT Alkaline Phosphatase Lactate Dehydrogenase 1879 H C-Reactive Protein 24.80 H Total Protein Albumin Triglycerides Lipase Arterial Blood Glucose Arterial Blood Ionized Calcium Urine WBC (Auto) 11.0 H Coronavirus (PCR) SARS-CoV-2 IgG Ab Crossmatch 05/10/20 05/11/20 05/11/20 Unknown 07:30 07:30 WBC RBC Hgb Hct MCV MCH MCHC RDW Lymph % (Auto) Lymph # (Auto) Frio # (Auto) Baso # (Auto) Seg Neutrophils % Seg Neuts % (Manual) Lymphocytes % (Manual) Nucleated RBC % Seg Neutrophils # Seg Neutrophils # Man Lymphocytes # (Manual) Monocytes # (Manual) Eosinophils # (Manual) PT INR APTT D-Dimer > 2000 H Heparin Anti-Xa Level ABG pH POC ABG pCO2 POC ABG pO2 ABG pO2 ABG HCO3 ABG O2 Saturation ABG Base Excess ABG Hemoglobin ABG Oxyhemoglobin ABG Sodium ABG Potassium ABG Chloride ABG Glucose Oxyhemoglobin Carboxyhemoglobin Sodium Potassium Chloride 96.3 L Carbon Dioxide BUN 36 H Creatinine Glucose 161 H POC Glucose Lactic Acid Calcium 8.3 L Magnesium Ferritin Total Bilirubin 1.50 H Direct Bilirubin 0.6 H AST 178 H ALT 111 H Alkaline Phosphatase Lactate Dehydrogenase C-Reactive Protein Total Protein Albumin 3.0 L Triglycerides Lipase Arterial Blood Glucose Arterial Blood Ionized Calcium Urine WBC (Auto) Coronavirus (PCR) Positive A SARS-CoV-2 IgG Ab Crossmatch 05/11/20 05/11/20 05/11/20 07:30 07:30 07:30 WBC RBC Hgb Hct MCV MCH MCHC RDW Lymph % (Auto) Lymph # (Auto) Frio # (Auto) Baso # (Auto) Seg Neutrophils % Seg Neuts % (Manual) Lymphocytes % (Manual) Nucleated RBC % Seg Neutrophils # Seg Neutrophils # Man Lymphocytes # (Manual) Monocytes # (Manual) Eosinophils # (Manual) PT INR APTT D-Dimer Heparin Anti-Xa Level ABG pH POC ABG pCO2 POC ABG pO2 ABG pO2 ABG HCO3 ABG O2 Saturation ABG Base Excess ABG Hemoglobin ABG Oxyhemoglobin ABG Sodium ABG Potassium ABG Chloride ABG Glucose Oxyhemoglobin Carboxyhemoglobin Sodium Potassium Chloride Carbon Dioxide BUN Creatinine Glucose POC Glucose Lactic Acid Calcium Magnesium Ferritin 09833.0 H Total Bilirubin Direct Bilirubin AST ALT Alkaline Phosphatase Lactate Dehydrogenase 1523 H C-Reactive Protein 12.90 H Total Protein Albumin Triglycerides Lipase Arterial Blood Glucose Arterial Blood Ionized Calcium Urine WBC (Auto) Coronavirus (PCR) SARS-CoV-2 IgG Ab Reactive A Crossmatch 05/13/20 05/13/20 05/15/20 05:20 05:20 08:15 WBC RBC Hgb Hct MCV MCH MCHC RDW Lymph % (Auto) Lymph # (Auto) Frio # (Auto) Baso # (Auto) Seg Neutrophils % Seg Neuts % (Manual) Lymphocytes % (Manual) Nucleated RBC % Seg Neutrophils # Seg Neutrophils # Man Lymphocytes # (Manual) Monocytes # (Manual) Eosinophils # (Manual) PT INR APTT D-Dimer > 89549 H 5318.28 H Heparin Anti-Xa Level ABG pH POC ABG pCO2 POC ABG pO2 ABG pO2 ABG HCO3 ABG O2 Saturation ABG Base Excess ABG Hemoglobin ABG Oxyhemoglobin ABG Sodium ABG Potassium ABG Chloride ABG Glucose Oxyhemoglobin Carboxyhemoglobin Sodium Potassium Chloride Carbon Dioxide 32 H BUN 30 H Creatinine Glucose 156 H POC Glucose Lactic Acid Calcium Magnesium 2.60 H Ferritin Total Bilirubin 1.40 H Direct Bilirubin AST 121 H ALT 119 H Alkaline Phosphatase Lactate Dehydrogenase 957 H C-Reactive Protein 4.00 H Total Protein Albumin 3.0 L Triglycerides Lipase Arterial Blood Glucose Arterial Blood Ionized Calcium Urine WBC (Auto) Coronavirus (PCR) SARS-CoV-2 IgG Ab Crossmatch 05/15/20 05/15/20 05/15/20 08:15 08:15 08:15 WBC 12.4 H RBC Hgb Hct MCV 98 H MCH 33 H MCHC RDW Lymph % (Auto) 9.7 L Lymph # (Auto) Frio # (Auto) Baso # (Auto) Seg Neutrophils % 86.8 H Seg Neuts % (Manual) Lymphocytes % (Manual) Nucleated RBC % Seg Neutrophils # 10.8 H Seg Neutrophils # Man Lymphocytes # (Manual) Monocytes # (Manual) Eosinophils # (Manual) PT INR APTT D-Dimer Heparin Anti-Xa Level ABG pH POC ABG pCO2 POC ABG pO2 ABG pO2 ABG HCO3 ABG O2 Saturation ABG Base Excess ABG Hemoglobin ABG Oxyhemoglobin ABG Sodium ABG Potassium ABG Chloride ABG Glucose Oxyhemoglobin Carboxyhemoglobin Sodium Potassium Chloride 94.8 L Carbon Dioxide 32 H BUN 22 H Creatinine Glucose 115 H POC Glucose Lactic Acid Calcium 8.3 L Magnesium Ferritin 2494.0 H Total Bilirubin Direct Bilirubin AST 73 H ALT 121 H Alkaline Phosphatase Lactate Dehydrogenase 835 H C-Reactive Protein 3.40 H Total Protein 6.1 L Albumin 3.0 L Triglycerides Lipase Arterial Blood Glucose Arterial Blood Ionized Calcium Urine WBC (Auto) Coronavirus (PCR) SARS-CoV-2 IgG Ab Crossmatch 05/17/20 05/17/20 05/17/20 05:50 05:50 05:50 WBC RBC Hgb Hct MCV MCH MCHC RDW Lymph % (Auto) Lymph # (Auto) Frio # (Auto) Baso # (Auto) Seg Neutrophils % Seg Neuts % (Manual) Lymphocytes % (Manual) Nucleated RBC % Seg Neutrophils # Seg Neutrophils # Man Lymphocytes # (Manual) Monocytes # (Manual) Eosinophils # (Manual) PT INR APTT D-Dimer 2911.42 H Heparin Anti-Xa Level ABG pH POC ABG pCO2 POC ABG pO2 ABG pO2 ABG HCO3 ABG O2 Saturation ABG Base Excess ABG Hemoglobin ABG Oxyhemoglobin ABG Sodium ABG Potassium ABG Chloride ABG Glucose Oxyhemoglobin Carboxyhemoglobin Sodium 136 L Potassium Chloride 96.0 L Carbon Dioxide 34 H BUN 22 H Creatinine Glucose 140 H POC Glucose Lactic Acid Calcium Magnesium Ferritin 2082.0 H Total Bilirubin Direct Bilirubin AST ALT 75 H Alkaline Phosphatase Lactate Dehydrogenase 601 H C-Reactive Protein 2.70 H Total Protein Albumin 2.9 L Triglycerides Lipase Arterial Blood Glucose Arterial Blood Ionized Calcium Urine WBC (Auto) Coronavirus (PCR) SARS-CoV-2 IgG Ab Crossmatch 05/17/20 05/18/20 05/20/20 05:50 12:22 08:16 WBC RBC Hgb Hct MCV 98 H MCH 33 H MCHC RDW Lymph % (Auto) 8.0 L Lymph # (Auto) 0.8 L Frio # (Auto) Baso # (Auto) Seg Neutrophils % 89.3 H Seg Neuts % (Manual) Lymphocytes % (Manual) Nucleated RBC % Seg Neutrophils # 8.8 H Seg Neutrophils # Man Lymphocytes # (Manual) Monocytes # (Manual) Eosinophils # (Manual) PT INR APTT D-Dimer 1887.82 H Heparin Anti-Xa Level ABG pH POC ABG pCO2 POC ABG pO2 ABG pO2 ABG HCO3 ABG O2 Saturation ABG Base Excess ABG Hemoglobin ABG Oxyhemoglobin ABG Sodium ABG Potassium ABG Chloride ABG Glucose Oxyhemoglobin Carboxyhemoglobin Sodium Potassium Chloride Carbon Dioxide BUN Creatinine Glucose POC Glucose 178 H Lactic Acid Calcium Magnesium Ferritin Total Bilirubin Direct Bilirubin AST ALT Alkaline Phosphatase Lactate Dehydrogenase C-Reactive Protein Total Protein Albumin Triglycerides Lipase Arterial Blood Glucose Arterial Blood Ionized Calcium Urine WBC (Auto) Coronavirus (PCR) SARS-CoV-2 IgG Ab Crossmatch 05/20/20 05/20/20 05/21/20 08:16 08:16 21:10 WBC RBC Hgb Hct MCV MCH MCHC RDW Lymph % (Auto) Lymph # (Auto) Frio # (Auto) Baso # (Auto) Seg Neutrophils % Seg Neuts % (Manual) Lymphocytes % (Manual) Nucleated RBC % Seg Neutrophils # Seg Neutrophils # Man Lymphocytes # (Manual) Monocytes # (Manual) Eosinophils # (Manual) PT INR APTT D-Dimer Heparin Anti-Xa Level ABG pH 7.483 H POC ABG pCO2 POC ABG pO2 ABG pO2 50.0 L ABG HCO3 27.0 H ABG O2 Saturation 86.2 L ABG Base Excess 3.7 H ABG Hemoglobin ABG Oxyhemoglobin ABG Sodium ABG Potassium ABG Chloride ABG Glucose Oxyhemoglobin 84.2 L Carboxyhemoglobin Sodium Potassium Chloride Carbon Dioxide BUN Creatinine Glucose POC Glucose Lactic Acid Calcium Magnesium Ferritin 1960.0 H Total Bilirubin Direct Bilirubin AST ALT Alkaline Phosphatase Lactate Dehydrogenase 705 H C-Reactive Protein 3.10 H Total Protein Albumin Triglycerides Lipase Arterial Blood Glucose Arterial Blood Ionized Calcium Urine WBC (Auto) Coronavirus (PCR) SARS-CoV-2 IgG Ab Crossmatch 05/22/20 05/22/20 05/22/20 04:01 07:53 07:53 WBC 19.2 H RBC Hgb Hct MCV 98 H MCH 34 H MCHC RDW Lymph % (Auto) Lymph # (Auto) Frio # (Auto) Baso # (Auto) Seg Neutrophils % Seg Neuts % (Manual) 96.0 H Lymphocytes % (Manual) 1.0 L Nucleated RBC % Seg Neutrophils # Seg Neutrophils # Man 18.4 H Lymphocytes # (Manual) 0.2 L Monocytes # (Manual) Eosinophils # (Manual) PT INR APTT D-Dimer Heparin Anti-Xa Level ABG pH POC ABG pCO2 53.8 H POC ABG pO2 125.5 H ABG pO2 ABG HCO3 ABG O2 Saturation ABG Base Excess ABG Hemoglobin ABG Oxyhemoglobin ABG Sodium 131.8 L ABG Potassium 4.8 H ABG Chloride 94.0 L ABG Glucose 163 H Oxyhemoglobin Carboxyhemoglobin Sodium 131 L Potassium Chloride 93.4 L Carbon Dioxide BUN 40 H Creatinine Glucose 176 H POC Glucose Lactic Acid Calcium Magnesium 2.70 H Ferritin Total Bilirubin 1.80 H Direct Bilirubin AST 45 H ALT 116 H Alkaline Phosphatase 181 H Lactate Dehydrogenase C-Reactive Protein Total Protein Albumin 2.6 L Triglycerides Lipase Arterial Blood Glucose 163 H Arterial Blood Ionized Calcium 4.5 L Urine WBC (Auto) Coronavirus (PCR) SARS-CoV-2 IgG Ab Crossmatch 05/23/20 05/24/20 05/24/20 04:17 03:07 04:08 WBC RBC Hgb Hct MCV MCH MCHC RDW Lymph % (Auto) Lymph # (Auto) Frio # (Auto) Baso # (Auto) Seg Neutrophils % Seg Neuts % (Manual) Lymphocytes % (Manual) Nucleated RBC % Seg Neutrophils # Seg Neutrophils # Man Lymphocytes # (Manual) Monocytes # (Manual) Eosinophils # (Manual) PT INR APTT D-Dimer Heparin Anti-Xa Level ABG pH 7.328 L POC ABG pCO2 POC ABG pO2 ABG pO2 72.8 L 73.4 L ABG HCO3 31.0 H 34.0 H ABG O2 Saturation 93.5 L ABG Base Excess 3.5 H 7.7 H ABG Hemoglobin 13.3 L 12.1 L ABG Oxyhemoglobin ABG Sodium ABG Potassium ABG Chloride ABG Glucose Oxyhemoglobin 91.5 L 94.3 L Carboxyhemoglobin Sodium Potassium Chloride Carbon Dioxide BUN Creatinine Glucose POC Glucose 155 H Lactic Acid Calcium Magnesium Ferritin Total Bilirubin Direct Bilirubin AST ALT Alkaline Phosphatase Lactate Dehydrogenase C-Reactive Protein Total Protein Albumin Triglycerides Lipase Arterial Blood Glucose Arterial Blood Ionized Calcium Urine WBC (Auto) Coronavirus (PCR) SARS-CoV-2 IgG Ab Crossmatch 05/24/20 05/24/20 05/24/20 09:33 12:21 17:52 WBC RBC Hgb Hct MCV MCH MCHC RDW Lymph % (Auto) Lymph # (Auto) Frio # (Auto) Baso # (Auto) Seg Neutrophils % Seg Neuts % (Manual) Lymphocytes % (Manual) Nucleated RBC % Seg Neutrophils # Seg Neutrophils # Man Lymphocytes # (Manual) Monocytes # (Manual) Eosinophils # (Manual) PT INR APTT D-Dimer Heparin Anti-Xa Level ABG pH POC ABG pCO2 POC ABG pO2 ABG pO2 ABG HCO3 ABG O2 Saturation ABG Base Excess ABG Hemoglobin ABG Oxyhemoglobin ABG Sodium ABG Potassium ABG Chloride ABG Glucose Oxyhemoglobin Carboxyhemoglobin Sodium Potassium Chloride Carbon Dioxide 34 H D BUN 28 H Creatinine 0.7 L Glucose 168 H POC Glucose 173 H 164 H Lactic Acid Calcium Magnesium Ferritin Total Bilirubin Direct Bilirubin AST ALT Alkaline Phosphatase Lactate Dehydrogenase C-Reactive Protein Total Protein Albumin Triglycerides Lipase Arterial Blood Glucose Arterial Blood Ionized Calcium Urine WBC (Auto) Coronavirus (PCR) SARS-CoV-2 IgG Ab Crossmatch 05/24/20 05/25/20 05/25/20 23:47 04:29 05:46 WBC RBC Hgb Hct MCV MCH MCHC RDW Lymph % (Auto) Lymph # (Auto) Frio # (Auto) Baso # (Auto) Seg Neutrophils % Seg Neuts % (Manual) Lymphocytes % (Manual) Nucleated RBC % Seg Neutrophils # Seg Neutrophils # Man Lymphocytes # (Manual) Monocytes # (Manual) Eosinophils # (Manual) PT INR APTT D-Dimer Heparin Anti-Xa Level ABG pH POC ABG pCO2 68.6 H POC ABG pO2 ABG pO2 ABG HCO3 ABG O2 Saturation ABG Base Excess ABG Hemoglobin ABG Oxyhemoglobin ABG Sodium ABG Potassium 4.7 H ABG Chloride ABG Glucose 226 H Oxyhemoglobin Carboxyhemoglobin Sodium Potassium Chloride Carbon Dioxide BUN Creatinine Glucose POC Glucose 171 H 201 H Lactic Acid Calcium Magnesium Ferritin Total Bilirubin Direct Bilirubin AST ALT Alkaline Phosphatase Lactate Dehydrogenase C-Reactive Protein Total Protein Albumin Triglycerides Lipase Arterial Blood Glucose 226 H Arterial Blood Ionized Calcium Urine WBC (Auto) Coronavirus (PCR) SARS-CoV-2 IgG Ab Crossmatch 05/25/20 05/25/20 05/25/20 08:37 08:37 12:38 WBC 12.0 H RBC 3.64 L Hgb Hct MCV 99 H MCH 33 H MCHC RDW Lymph % (Auto) Lymph # (Auto) Frio # (Auto) Baso # (Auto) Seg Neutrophils % Seg Neuts % (Manual) Lymphocytes % (Manual) Nucleated RBC % Seg Neutrophils # Seg Neutrophils # Man Lymphocytes # (Manual) Monocytes # (Manual) Eosinophils # (Manual) PT INR APTT D-Dimer Heparin Anti-Xa Level ABG pH POC ABG pCO2 POC ABG pO2 ABG pO2 ABG HCO3 ABG O2 Saturation ABG Base Excess ABG Hemoglobin ABG Oxyhemoglobin ABG Sodium ABG Potassium ABG Chloride ABG Glucose Oxyhemoglobin Carboxyhemoglobin Sodium Potassium Chloride 97.3 L Carbon Dioxide 35 H BUN 25 H Creatinine 0.7 L Glucose 191 H POC Glucose 182 H Lactic Acid Calcium Magnesium Ferritin Total Bilirubin Direct Bilirubin AST ALT Alkaline Phosphatase Lactate Dehydrogenase C-Reactive Protein Total Protein Albumin Triglycerides Lipase Arterial Blood Glucose Arterial Blood Ionized Calcium Urine WBC (Auto) Coronavirus (PCR) SARS-CoV-2 IgG Ab Crossmatch 05/25/20 05/26/20 05/26/20 18:16 00:06 04:50 WBC RBC Hgb Hct MCV MCH MCHC RDW Lymph % (Auto) Lymph # (Auto) Frio # (Auto) Baso # (Auto) Seg Neutrophils % Seg Neuts % (Manual) Lymphocytes % (Manual) Nucleated RBC % Seg Neutrophils # Seg Neutrophils # Man Lymphocytes # (Manual) Monocytes # (Manual) Eosinophils # (Manual) PT INR APTT D-Dimer Heparin Anti-Xa Level ABG pH POC ABG pCO2 POC ABG pO2 ABG pO2 221.5 H ABG HCO3 40.4 H ABG O2 Saturation 99.3 H ABG Base Excess 12.8 H ABG Hemoglobin 10.4 L ABG Oxyhemoglobin ABG Sodium ABG Potassium ABG Chloride ABG Glucose Oxyhemoglobin Carboxyhemoglobin Sodium Potassium Chloride Carbon Dioxide BUN Creatinine Glucose POC Glucose 176 H 152 H Lactic Acid Calcium Magnesium Ferritin Total Bilirubin Direct Bilirubin AST ALT Alkaline Phosphatase Lactate Dehydrogenase C-Reactive Protein Total Protein Albumin Triglycerides Lipase Arterial Blood Glucose Arterial Blood Ionized Calcium Urine WBC (Auto) Coronavirus (PCR) SARS-CoV-2 IgG Ab Crossmatch 05/26/20 05/26/20 05/26/20 06:11 07:51 07:51 WBC 13.4 H RBC 3.64 L Hgb Hct MCV 98 H MCH 33 H MCHC RDW Lymph % (Auto) Lymph # (Auto) Frio # (Auto) Baso # (Auto) Seg Neutrophils % Seg Neuts % (Manual) Lymphocytes % (Manual) Nucleated RBC % Seg Neutrophils # Seg Neutrophils # Man Lymphocytes # (Manual) Monocytes # (Manual) Eosinophils # (Manual) PT INR APTT D-Dimer Heparin Anti-Xa Level ABG pH POC ABG pCO2 POC ABG pO2 ABG pO2 ABG HCO3 ABG O2 Saturation ABG Base Excess ABG Hemoglobin ABG Oxyhemoglobin ABG Sodium ABG Potassium ABG Chloride ABG Glucose Oxyhemoglobin Carboxyhemoglobin Sodium Potassium Chloride 96.6 L Carbon Dioxide 39 H BUN 29 H Creatinine 0.7 L Glucose 174 H POC Glucose 165 H Lactic Acid Calcium Magnesium Ferritin Total Bilirubin Direct Bilirubin AST ALT Alkaline Phosphatase Lactate Dehydrogenase C-Reactive Protein Total Protein Albumin Triglycerides Lipase Arterial Blood Glucose Arterial Blood Ionized Calcium Urine WBC (Auto) Coronavirus (PCR) SARS-CoV-2 IgG Ab Crossmatch 05/26/20 05/27/20 05/27/20 23:23 03:43 05:29 WBC RBC Hgb Hct MCV MCH MCHC RDW Lymph % (Auto) Lymph # (Auto) Frio # (Auto) Baso # (Auto) Seg Neutrophils % Seg Neuts % (Manual) Lymphocytes % (Manual) Nucleated RBC % Seg Neutrophils # Seg Neutrophils # Man Lymphocytes # (Manual) Monocytes # (Manual) Eosinophils # (Manual) PT INR APTT D-Dimer Heparin Anti-Xa Level ABG pH 7.480 H POC ABG pCO2 52.4 H POC ABG pO2 61.4 L ABG pO2 ABG HCO3 ABG O2 Saturation ABG Base Excess ABG Hemoglobin ABG Oxyhemoglobin ABG Sodium 134.9 L ABG Potassium ABG Chloride 95.0 L ABG Glucose 221 H Oxyhemoglobin Carboxyhemoglobin Sodium Potassium Chloride Carbon Dioxide BUN Creatinine Glucose POC Glucose 169 H 227 H Lactic Acid Calcium Magnesium Ferritin Total Bilirubin Direct Bilirubin AST ALT Alkaline Phosphatase Lactate Dehydrogenase C-Reactive Protein Total Protein Albumin Triglycerides Lipase Arterial Blood Glucose 221 H Arterial Blood Ionized Calcium 4.5 L Urine WBC (Auto) Coronavirus (PCR) SARS-CoV-2 IgG Ab Crossmatch 05/27/20 05/27/20 05/27/20 07:19 12:18 13:50 WBC RBC Hgb Hct MCV MCH MCHC RDW Lymph % (Auto) Lymph # (Auto) Frio # (Auto) Baso # (Auto) Seg Neutrophils % Seg Neuts % (Manual) Lymphocytes % (Manual) Nucleated RBC % Seg Neutrophils # Seg Neutrophils # Man Lymphocytes # (Manual) Monocytes # (Manual) Eosinophils # (Manual) PT INR APTT D-Dimer Heparin Anti-Xa Level ABG pH POC ABG pCO2 POC ABG pO2 ABG pO2 ABG HCO3 ABG O2 Saturation ABG Base Excess ABG Hemoglobin ABG Oxyhemoglobin ABG Sodium ABG Potassium ABG Chloride ABG Glucose Oxyhemoglobin Carboxyhemoglobin Sodium Potassium Chloride Carbon Dioxide BUN Creatinine Glucose POC Glucose 114 H 148 H Lactic Acid Calcium Magnesium Ferritin Total Bilirubin Direct Bilirubin AST ALT Alkaline Phosphatase Lactate Dehydrogenase C-Reactive Protein Total Protein Albumin Triglycerides 247 H Lipase Arterial Blood Glucose Arterial Blood Ionized Calcium Urine WBC (Auto) Coronavirus (PCR) SARS-CoV-2 IgG Ab Crossmatch 05/28/20 05/28/20 05/28/20 00:13 04:16 05:22 WBC RBC Hgb Hct MCV MCH MCHC RDW Lymph % (Auto) Lymph # (Auto) Frio # (Auto) Baso # (Auto) Seg Neutrophils % Seg Neuts % (Manual) Lymphocytes % (Manual) Nucleated RBC % Seg Neutrophils # Seg Neutrophils # Man Lymphocytes # (Manual) Monocytes # (Manual) Eosinophils # (Manual) PT INR APTT D-Dimer Heparin Anti-Xa Level ABG pH POC ABG pCO2 64.4 H POC ABG pO2 60.5 L ABG pO2 ABG HCO3 ABG O2 Saturation ABG Base Excess ABG Hemoglobin ABG Oxyhemoglobin ABG Sodium ABG Potassium ABG Chloride 95.0 L ABG Glucose 209 H Oxyhemoglobin Carboxyhemoglobin Sodium Potassium Chloride Carbon Dioxide BUN Creatinine Glucose POC Glucose 155 H 186 H Lactic Acid Calcium Magnesium Ferritin Total Bilirubin Direct Bilirubin AST ALT Alkaline Phosphatase Lactate Dehydrogenase C-Reactive Protein Total Protein Albumin Triglycerides Lipase Arterial Blood Glucose 209 H Arterial Blood Ionized Calcium Urine WBC (Auto) Coronavirus (PCR) SARS-CoV-2 IgG Ab Crossmatch 05/28/20 05/28/20 05/29/20 12:45 17:39 00:37 WBC RBC Hgb Hct MCV MCH MCHC RDW Lymph % (Auto) Lymph # (Auto) Frio # (Auto) Baso # (Auto) Seg Neutrophils % Seg Neuts % (Manual) Lymphocytes % (Manual) Nucleated RBC % Seg Neutrophils # Seg Neutrophils # Man Lymphocytes # (Manual) Monocytes # (Manual) Eosinophils # (Manual) PT INR APTT D-Dimer Heparin Anti-Xa Level ABG pH POC ABG pCO2 POC ABG pO2 ABG pO2 ABG HCO3 ABG O2 Saturation ABG Base Excess ABG Hemoglobin ABG Oxyhemoglobin ABG Sodium ABG Potassium ABG Chloride ABG Glucose Oxyhemoglobin Carboxyhemoglobin Sodium Potassium Chloride Carbon Dioxide BUN Creatinine Glucose POC Glucose 143 H 164 H 221 H Lactic Acid Calcium Magnesium Ferritin Total Bilirubin Direct Bilirubin AST ALT Alkaline Phosphatase Lactate Dehydrogenase C-Reactive Protein Total Protein Albumin Triglycerides Lipase Arterial Blood Glucose Arterial Blood Ionized Calcium Urine WBC (Auto) Coronavirus (PCR) SARS-CoV-2 IgG Ab Crossmatch 05/29/20 05/29/20 05/29/20 04:15 05:33 12:34 WBC RBC Hgb Hct MCV MCH MCHC RDW Lymph % (Auto) Lymph # (Auto) Frio # (Auto) Baso # (Auto) Seg Neutrophils % Seg Neuts % (Manual) Lymphocytes % (Manual) Nucleated RBC % Seg Neutrophils # Seg Neutrophils # Man Lymphocytes # (Manual) Monocytes # (Manual) Eosinophils # (Manual) PT INR APTT D-Dimer Heparin Anti-Xa Level ABG pH 7.463 H POC ABG pCO2 56.3 H POC ABG pO2 81.2 L ABG pO2 ABG HCO3 ABG O2 Saturation ABG Base Excess ABG Hemoglobin ABG Oxyhemoglobin ABG Sodium ABG Potassium ABG Chloride 96.0 L ABG Glucose 194 H Oxyhemoglobin Carboxyhemoglobin Sodium Potassium Chloride Carbon Dioxide BUN Creatinine Glucose POC Glucose 133 H 221 H Lactic Acid Calcium Magnesium Ferritin Total Bilirubin Direct Bilirubin AST ALT Alkaline Phosphatase Lactate Dehydrogenase C-Reactive Protein Total Protein Albumin Triglycerides Lipase Arterial Blood Glucose 194 H Arterial Blood Ionized Calcium 4.5 L Urine WBC (Auto) Coronavirus (PCR) SARS-CoV-2 IgG Ab Crossmatch 05/29/20 05/30/20 05/30/20 18:07 00:12 05:38 WBC RBC Hgb Hct MCV MCH MCHC RDW Lymph % (Auto) Lymph # (Auto) Frio # (Auto) Baso # (Auto) Seg Neutrophils % Seg Neuts % (Manual) Lymphocytes % (Manual) Nucleated RBC % Seg Neutrophils # Seg Neutrophils # Man Lymphocytes # (Manual) Monocytes # (Manual) Eosinophils # (Manual) PT INR APTT D-Dimer Heparin Anti-Xa Level ABG pH POC ABG pCO2 POC ABG pO2 ABG pO2 ABG HCO3 ABG O2 Saturation ABG Base Excess ABG Hemoglobin ABG Oxyhemoglobin ABG Sodium ABG Potassium ABG Chloride ABG Glucose Oxyhemoglobin Carboxyhemoglobin Sodium Potassium Chloride Carbon Dioxide BUN Creatinine Glucose POC Glucose 162 H 190 H 208 H Lactic Acid Calcium Magnesium Ferritin Total Bilirubin Direct Bilirubin AST ALT Alkaline Phosphatase Lactate Dehydrogenase C-Reactive Protein Total Protein Albumin Triglycerides Lipase Arterial Blood Glucose Arterial Blood Ionized Calcium Urine WBC (Auto) Coronavirus (PCR) SARS-CoV-2 IgG Ab Crossmatch 05/30/20 05/30/20 05/30/20 09:30 11:35 11:54 WBC 12.4 H RBC 3.48 L Hgb 11.3 L Hct 34.6 L MCV 99 H MCH 33 H MCHC RDW Lymph % (Auto) Lymph # (Auto) Frio # (Auto) Baso # (Auto) Seg Neutrophils % Seg Neuts % (Manual) Lymphocytes % (Manual) Nucleated RBC % Seg Neutrophils # Seg Neutrophils # Man Lymphocytes # (Manual) Monocytes # (Manual) Eosinophils # (Manual) PT INR APTT D-Dimer Heparin Anti-Xa Level ABG pH 7.455 H POC ABG pCO2 57.5 H POC ABG pO2 81.5 L ABG pO2 ABG HCO3 ABG O2 Saturation ABG Base Excess ABG Hemoglobin ABG Oxyhemoglobin ABG Sodium ABG Potassium ABG Chloride 96.0 L ABG Glucose 204 H Oxyhemoglobin Carboxyhemoglobin Sodium Potassium Chloride Carbon Dioxide BUN Creatinine Glucose POC Glucose 183 H Lactic Acid Calcium Magnesium Ferritin Total Bilirubin Direct Bilirubin AST ALT Alkaline Phosphatase Lactate Dehydrogenase C-Reactive Protein Total Protein Albumin Triglycerides Lipase Arterial Blood Glucose 204 H Arterial Blood Ionized Calcium Urine WBC (Auto) Coronavirus (PCR) SARS-CoV-2 IgG Ab Crossmatch 05/30/20 05/31/20 05/31/20 18:01 00:10 03:22 WBC RBC Hgb Hct MCV MCH MCHC RDW Lymph % (Auto) Lymph # (Auto) Frio # (Auto) Baso # (Auto) Seg Neutrophils % Seg Neuts % (Manual) Lymphocytes % (Manual) Nucleated RBC % Seg Neutrophils # Seg Neutrophils # Man Lymphocytes # (Manual) Monocytes # (Manual) Eosinophils # (Manual) PT INR APTT D-Dimer Heparin Anti-Xa Level ABG pH POC ABG pCO2 60.4 H POC ABG pO2 71.5 L ABG pO2 ABG HCO3 ABG O2 Saturation ABG Base Excess ABG Hemoglobin ABG Oxyhemoglobin ABG Sodium ABG Potassium ABG Chloride 96.0 L ABG Glucose 169 H Oxyhemoglobin Carboxyhemoglobin Sodium Potassium Chloride Carbon Dioxide BUN Creatinine Glucose POC Glucose 184 H 135 H Lactic Acid Calcium Magnesium Ferritin Total Bilirubin Direct Bilirubin AST ALT Alkaline Phosphatase Lactate Dehydrogenase C-Reactive Protein Total Protein Albumin Triglycerides Lipase Arterial Blood Glucose 169 H Arterial Blood Ionized Calcium 4.5 L Urine WBC (Auto) Coronavirus (PCR) SARS-CoV-2 IgG Ab Crossmatch 05/31/20 05/31/20 05/31/20 05:24 11:18 14:41 WBC RBC Hgb Hct MCV MCH MCHC RDW Lymph % (Auto) Lymph # (Auto) Frio # (Auto) Baso # (Auto) Seg Neutrophils % Seg Neuts % (Manual) Lymphocytes % (Manual) Nucleated RBC % Seg Neutrophils # Seg Neutrophils # Man Lymphocytes # (Manual) Monocytes # (Manual) Eosinophils # (Manual) PT INR APTT D-Dimer Heparin Anti-Xa Level ABG pH POC ABG pCO2 POC ABG pO2 ABG pO2 ABG HCO3 ABG O2 Saturation ABG Base Excess ABG Hemoglobin ABG Oxyhemoglobin ABG Sodium ABG Potassium ABG Chloride ABG Glucose Oxyhemoglobin Carboxyhemoglobin Sodium Potassium Chloride 96.8 L Carbon Dioxide 37 H BUN 31 H Creatinine 0.6 L Glucose 213 H POC Glucose 164 H 208 H Lactic Acid Calcium Magnesium Ferritin Total Bilirubin Direct Bilirubin AST ALT Alkaline Phosphatase Lactate Dehydrogenase C-Reactive Protein Total Protein Albumin Triglycerides Lipase Arterial Blood Glucose Arterial Blood Ionized Calcium Urine WBC (Auto) Coronavirus (PCR) SARS-CoV-2 IgG Ab Crossmatch 05/31/20 05/31/20 06/01/20 17:37 23:47 03:48 WBC RBC Hgb Hct MCV MCH MCHC RDW Lymph % (Auto) Lymph # (Auto) Frio # (Auto) Baso # (Auto) Seg Neutrophils % Seg Neuts % (Manual) Lymphocytes % (Manual) Nucleated RBC % Seg Neutrophils # Seg Neutrophils # Man Lymphocytes # (Manual) Monocytes # (Manual) Eosinophils # (Manual) PT INR APTT D-Dimer Heparin Anti-Xa Level ABG pH POC ABG pCO2 59.7 H POC ABG pO2 73.9 L ABG pO2 ABG HCO3 ABG O2 Saturation ABG Base Excess ABG Hemoglobin ABG Oxyhemoglobin ABG Sodium ABG Potassium ABG Chloride 95.0 L ABG Glucose 256 H Oxyhemoglobin Carboxyhemoglobin Sodium Potassium Chloride Carbon Dioxide BUN Creatinine Glucose POC Glucose 168 H 178 H Lactic Acid Calcium Magnesium Ferritin Total Bilirubin Direct Bilirubin AST ALT Alkaline Phosphatase Lactate Dehydrogenase C-Reactive Protein Total Protein Albumin Triglycerides Lipase Arterial Blood Glucose 256 H Arterial Blood Ionized Calcium Urine WBC (Auto) Coronavirus (PCR) SARS-CoV-2 IgG Ab Crossmatch 06/01/20 06/01/20 06/01/20 05:01 07:47 07:47 WBC 14.4 H RBC 3.46 L Hgb 11.1 L Hct 34.3 L MCV 99 H MCH MCHC RDW Lymph % (Auto) Lymph # (Auto) Frio # (Auto) Baso # (Auto) Seg Neutrophils % Seg Neuts % (Manual) 86.0 H Lymphocytes % (Manual) 9.0 L Nucleated RBC % Seg Neutrophils # Seg Neutrophils # Man 12.4 H Lymphocytes # (Manual) Monocytes # (Manual) Eosinophils # (Manual) PT INR APTT D-Dimer Heparin Anti-Xa Level ABG pH POC ABG pCO2 POC ABG pO2 ABG pO2 ABG HCO3 ABG O2 Saturation ABG Base Excess ABG Hemoglobin ABG Oxyhemoglobin ABG Sodium ABG Potassium ABG Chloride ABG Glucose Oxyhemoglobin Carboxyhemoglobin Sodium Potassium Chloride Carbon Dioxide BUN Creatinine Glucose POC Glucose 197 H Lactic Acid Calcium Magnesium Ferritin Total Bilirubin Direct Bilirubin AST ALT Alkaline Phosphatase Lactate Dehydrogenase C-Reactive Protein Total Protein Albumin Triglycerides 244 H Lipase Arterial Blood Glucose Arterial Blood Ionized Calcium Urine WBC (Auto) Coronavirus (PCR) SARS-CoV-2 IgG Ab Crossmatch 06/01/20 06/01/20 06/01/20 07:47 11:46 18:15 WBC RBC Hgb Hct MCV MCH MCHC RDW Lymph % (Auto) Lymph # (Auto) Frio # (Auto) Baso # (Auto) Seg Neutrophils % Seg Neuts % (Manual) Lymphocytes % (Manual) Nucleated RBC % Seg Neutrophils # Seg Neutrophils # Man Lymphocytes # (Manual) Monocytes # (Manual) Eosinophils # (Manual) PT INR APTT D-Dimer Heparin Anti-Xa Level ABG pH POC ABG pCO2 POC ABG pO2 ABG pO2 ABG HCO3 ABG O2 Saturation ABG Base Excess ABG Hemoglobin ABG Oxyhemoglobin ABG Sodium ABG Potassium ABG Chloride ABG Glucose Oxyhemoglobin Carboxyhemoglobin Sodium Potassium Chloride 95.4 L Carbon Dioxide 35 H BUN 30 H Creatinine 0.5 L Glucose 214 H POC Glucose 181 H 221 H Lactic Acid Calcium Magnesium Ferritin Total Bilirubin Direct Bilirubin AST 54 H ALT 235 H Alkaline Phosphatase Lactate Dehydrogenase C-Reactive Protein Total Protein Albumin 2.9 L Triglycerides Lipase Arterial Blood Glucose Arterial Blood Ionized Calcium Urine WBC (Auto) Coronavirus (PCR) SARS-CoV-2 IgG Ab Crossmatch 06/01/20 06/02/20 06/02/20 23:12 04:00 05:31 WBC RBC Hgb Hct MCV MCH MCHC RDW Lymph % (Auto) Lymph # (Auto) Frio # (Auto) Baso # (Auto) Seg Neutrophils % Seg Neuts % (Manual) Lymphocytes % (Manual) Nucleated RBC % Seg Neutrophils # Seg Neutrophils # Man Lymphocytes # (Manual) Monocytes # (Manual) Eosinophils # (Manual) PT INR APTT D-Dimer Heparin Anti-Xa Level ABG pH 7.465 H POC ABG pCO2 POC ABG pO2 ABG pO2 203.4 H ABG HCO3 41.2 H ABG O2 Saturation 99.3 H ABG Base Excess 15.1 H ABG Hemoglobin 11.5 L ABG Oxyhemoglobin ABG Sodium ABG Potassium ABG Chloride ABG Glucose Oxyhemoglobin Carboxyhemoglobin Sodium Potassium Chloride Carbon Dioxide BUN Creatinine Glucose POC Glucose 197 H 184 H Lactic Acid Calcium Magnesium Ferritin Total Bilirubin Direct Bilirubin AST ALT Alkaline Phosphatase Lactate Dehydrogenase C-Reactive Protein Total Protein Albumin Triglycerides Lipase Arterial Blood Glucose Arterial Blood Ionized Calcium Urine WBC (Auto) Coronavirus (PCR) SARS-CoV-2 IgG Ab Crossmatch 06/02/20 06/02/20 06/02/20 11:49 18:06 23:00 WBC RBC Hgb Hct MCV MCH MCHC RDW Lymph % (Auto) Lymph # (Auto) Frio # (Auto) Baso # (Auto) Seg Neutrophils % Seg Neuts % (Manual) Lymphocytes % (Manual) Nucleated RBC % Seg Neutrophils # Seg Neutrophils # Man Lymphocytes # (Manual) Monocytes # (Manual) Eosinophils # (Manual) PT INR APTT D-Dimer Heparin Anti-Xa Level ABG pH POC ABG pCO2 POC ABG pO2 ABG pO2 ABG HCO3 ABG O2 Saturation ABG Base Excess ABG Hemoglobin ABG Oxyhemoglobin ABG Sodium ABG Potassium ABG Chloride ABG Glucose Oxyhemoglobin Carboxyhemoglobin Sodium Potassium Chloride Carbon Dioxide BUN Creatinine Glucose POC Glucose 195 H 177 H 228 H Lactic Acid Calcium Magnesium Ferritin Total Bilirubin Direct Bilirubin AST ALT Alkaline Phosphatase Lactate Dehydrogenase C-Reactive Protein Total Protein Albumin Triglycerides Lipase Arterial Blood Glucose Arterial Blood Ionized Calcium Urine WBC (Auto) Coronavirus (PCR) SARS-CoV-2 IgG Ab Crossmatch 06/03/20 06/03/20 06/03/20 03:58 05:19 12:21 WBC RBC Hgb Hct MCV MCH MCHC RDW Lymph % (Auto) Lymph # (Auto) Frio # (Auto) Baso # (Auto) Seg Neutrophils % Seg Neuts % (Manual) Lymphocytes % (Manual) Nucleated RBC % Seg Neutrophils # Seg Neutrophils # Man Lymphocytes # (Manual) Monocytes # (Manual) Eosinophils # (Manual) PT INR APTT D-Dimer Heparin Anti-Xa Level ABG pH POC ABG pCO2 POC ABG pO2 ABG pO2 171.0 H ABG HCO3 42.8 H ABG O2 Saturation ABG Base Excess 15.6 H ABG Hemoglobin 12.3 L ABG Oxyhemoglobin ABG Sodium ABG Potassium ABG Chloride ABG Glucose Oxyhemoglobin Carboxyhemoglobin Sodium Potassium Chloride Carbon Dioxide BUN Creatinine Glucose POC Glucose 122 H 207 H Lactic Acid Calcium Magnesium Ferritin Total Bilirubin Direct Bilirubin AST ALT Alkaline Phosphatase Lactate Dehydrogenase C-Reactive Protein Total Protein Albumin Triglycerides Lipase Arterial Blood Glucose Arterial Blood Ionized Calcium Urine WBC (Auto) Coronavirus (PCR) SARS-CoV-2 IgG Ab Crossmatch 06/03/20 06/03/20 06/04/20 17:27 23:50 03:55 WBC RBC Hgb Hct MCV MCH MCHC RDW Lymph % (Auto) Lymph # (Auto) Frio # (Auto) Baso # (Auto) Seg Neutrophils % Seg Neuts % (Manual) Lymphocytes % (Manual) Nucleated RBC % Seg Neutrophils # Seg Neutrophils # Man Lymphocytes # (Manual) Monocytes # (Manual) Eosinophils # (Manual) PT INR APTT D-Dimer Heparin Anti-Xa Level ABG pH POC ABG pCO2 POC ABG pO2 ABG pO2 117.2 H ABG HCO3 42.4 H ABG O2 Saturation ABG Base Excess 15.3 H ABG Hemoglobin 10.5 L ABG Oxyhemoglobin ABG Sodium ABG Potassium ABG Chloride ABG Glucose Oxyhemoglobin Carboxyhemoglobin Sodium Potassium Chloride Carbon Dioxide BUN Creatinine Glucose POC Glucose 157 H 214 H Lactic Acid Calcium Magnesium Ferritin Total Bilirubin Direct Bilirubin AST ALT Alkaline Phosphatase Lactate Dehydrogenase C-Reactive Protein Total Protein Albumin Triglycerides Lipase Arterial Blood Glucose Arterial Blood Ionized Calcium Urine WBC (Auto) Coronavirus (PCR) SARS-CoV-2 IgG Ab Crossmatch 06/04/20 06/04/20 06/04/20 05:49 11:41 17:30 WBC RBC Hgb Hct MCV MCH MCHC RDW Lymph % (Auto) Lymph # (Auto) Frio # (Auto) Baso # (Auto) Seg Neutrophils % Seg Neuts % (Manual) Lymphocytes % (Manual) Nucleated RBC % Seg Neutrophils # Seg Neutrophils # Man Lymphocytes # (Manual) Monocytes # (Manual) Eosinophils # (Manual) PT INR APTT D-Dimer Heparin Anti-Xa Level ABG pH POC ABG pCO2 POC ABG pO2 ABG pO2 ABG HCO3 ABG O2 Saturation ABG Base Excess ABG Hemoglobin ABG Oxyhemoglobin ABG Sodium ABG Potassium ABG Chloride ABG Glucose Oxyhemoglobin Carboxyhemoglobin Sodium Potassium Chloride Carbon Dioxide BUN Creatinine Glucose POC Glucose 149 H 233 H 156 H Lactic Acid Calcium Magnesium Ferritin Total Bilirubin Direct Bilirubin AST ALT Alkaline Phosphatase Lactate Dehydrogenase C-Reactive Protein Total Protein Albumin Triglycerides Lipase Arterial Blood Glucose Arterial Blood Ionized Calcium Urine WBC (Auto) Coronavirus (PCR) SARS-CoV-2 IgG Ab Crossmatch 06/04/20 06/04/20 06/04/20 19:01 20:53 23:41 WBC RBC 3.18 L Hgb 10.8 L Hct 31.8 L MCV 100 H MCH 34 H MCHC RDW Lymph % (Auto) Lymph # (Auto) Frio # (Auto) Baso # (Auto) Seg Neutrophils % Seg Neuts % (Manual) 86.0 H Lymphocytes % (Manual) 10.0 L Nucleated RBC % 1.0 H Seg Neutrophils # Seg Neutrophils # Man 8.5 H Lymphocytes # (Manual) 1.0 L Monocytes # (Manual) Eosinophils # (Manual) PT INR APTT D-Dimer Heparin Anti-Xa Level ABG pH POC ABG pCO2 POC ABG pO2 ABG pO2 ABG HCO3 ABG O2 Saturation ABG Base Excess ABG Hemoglobin ABG Oxyhemoglobin ABG Sodium ABG Potassium ABG Chloride ABG Glucose Oxyhemoglobin Carboxyhemoglobin Sodium Potassium 3.4 L D Chloride 96.5 L Carbon Dioxide 41 H* BUN 27 H Creatinine 0.5 L Glucose 173 H POC Glucose 217 H Lactic Acid Calcium Magnesium Ferritin Total Bilirubin Direct Bilirubin AST ALT Alkaline Phosphatase Lactate Dehydrogenase C-Reactive Protein Total Protein Albumin Triglycerides Lipase Arterial Blood Glucose Arterial Blood Ionized Calcium Urine WBC (Auto) Coronavirus (PCR) SARS-CoV-2 IgG Ab Crossmatch 06/05/20 06/05/20 06/05/20 06:05 11:54 12:35 WBC RBC Hgb Hct MCV MCH MCHC RDW Lymph % (Auto) Lymph # (Auto) Frio # (Auto) Baso # (Auto) Seg Neutrophils % Seg Neuts % (Manual) Lymphocytes % (Manual) Nucleated RBC % Seg Neutrophils # Seg Neutrophils # Man Lymphocytes # (Manual) Monocytes # (Manual) Eosinophils # (Manual) PT INR APTT D-Dimer Heparin Anti-Xa Level ABG pH POC ABG pCO2 POC ABG pO2 ABG pO2 127.9 H ABG HCO3 41.1 H ABG O2 Saturation ABG Base Excess 13.0 H ABG Hemoglobin 13.4 L ABG Oxyhemoglobin ABG Sodium ABG Potassium ABG Chloride ABG Glucose Oxyhemoglobin Carboxyhemoglobin Sodium Potassium Chloride Carbon Dioxide BUN Creatinine Glucose POC Glucose 137 H 211 H Lactic Acid Calcium Magnesium Ferritin Total Bilirubin Direct Bilirubin AST ALT Alkaline Phosphatase Lactate Dehydrogenase C-Reactive Protein Total Protein Albumin Triglycerides Lipase Arterial Blood Glucose Arterial Blood Ionized Calcium Urine WBC (Auto) Coronavirus (PCR) SARS-CoV-2 IgG Ab Crossmatch 06/05/20 06/05/20 06/06/20 17:03 23:49 04:42 WBC RBC Hgb Hct MCV MCH MCHC RDW Lymph % (Auto) Lymph # (Auto) Frio # (Auto) Baso # (Auto) Seg Neutrophils % Seg Neuts % (Manual) Lymphocytes % (Manual) Nucleated RBC % Seg Neutrophils # Seg Neutrophils # Man Lymphocytes # (Manual) Monocytes # (Manual) Eosinophils # (Manual) PT INR APTT D-Dimer Heparin Anti-Xa Level ABG pH POC ABG pCO2 56.1 H POC ABG pO2 52.5 L ABG pO2 ABG HCO3 ABG O2 Saturation ABG Base Excess ABG Hemoglobin 11.7 L ABG Oxyhemoglobin ABG Sodium ABG Potassium 3.3 L ABG Chloride 95.0 L ABG Glucose 156 H Oxyhemoglobin Carboxyhemoglobin Sodium Potassium Chloride Carbon Dioxide BUN Creatinine Glucose POC Glucose 159 H 194 H Lactic Acid Calcium Magnesium Ferritin Total Bilirubin Direct Bilirubin AST ALT Alkaline Phosphatase Lactate Dehydrogenase C-Reactive Protein Total Protein Albumin Triglycerides Lipase Arterial Blood Glucose 156 H Arterial Blood Ionized Calcium Urine WBC (Auto) Coronavirus (PCR) SARS-CoV-2 IgG Ab Crossmatch 06/06/20 06/06/20 06/06/20 05:57 12:06 17:38 WBC RBC Hgb Hct MCV MCH MCHC RDW Lymph % (Auto) Lymph # (Auto) Frio # (Auto) Baso # (Auto) Seg Neutrophils % Seg Neuts % (Manual) Lymphocytes % (Manual) Nucleated RBC % Seg Neutrophils # Seg Neutrophils # Man Lymphocytes # (Manual) Monocytes # (Manual) Eosinophils # (Manual) PT INR APTT D-Dimer Heparin Anti-Xa Level ABG pH POC ABG pCO2 POC ABG pO2 ABG pO2 ABG HCO3 ABG O2 Saturation ABG Base Excess ABG Hemoglobin ABG Oxyhemoglobin ABG Sodium ABG Potassium ABG Chloride ABG Glucose Oxyhemoglobin Carboxyhemoglobin Sodium Potassium Chloride Carbon Dioxide BUN Creatinine Glucose POC Glucose 144 H 230 H 162 H Lactic Acid Calcium Magnesium Ferritin Total Bilirubin Direct Bilirubin AST ALT Alkaline Phosphatase Lactate Dehydrogenase C-Reactive Protein Total Protein Albumin Triglycerides Lipase Arterial Blood Glucose Arterial Blood Ionized Calcium Urine WBC (Auto) Coronavirus (PCR) SARS-CoV-2 IgG Ab Crossmatch 06/06/20 06/07/20 06/07/20 23:50 04:34 06:03 WBC RBC Hgb Hct MCV MCH MCHC RDW Lymph % (Auto) Lymph # (Auto) Frio # (Auto) Baso # (Auto) Seg Neutrophils % Seg Neuts % (Manual) Lymphocytes % (Manual) Nucleated RBC % Seg Neutrophils # Seg Neutrophils # Man Lymphocytes # (Manual) Monocytes # (Manual) Eosinophils # (Manual) PT INR APTT D-Dimer Heparin Anti-Xa Level ABG pH 7.511 H POC ABG pCO2 53.5 H POC ABG pO2 114.5 H ABG pO2 ABG HCO3 ABG O2 Saturation ABG Base Excess ABG Hemoglobin 9.4 L ABG Oxyhemoglobin ABG Sodium 134.5 L ABG Potassium ABG Chloride 94.0 L ABG Glucose 186 H Oxyhemoglobin Carboxyhemoglobin Sodium Potassium Chloride Carbon Dioxide BUN Creatinine Glucose POC Glucose 181 H 155 H Lactic Acid Calcium Magnesium Ferritin Total Bilirubin Direct Bilirubin AST ALT Alkaline Phosphatase Lactate Dehydrogenase C-Reactive Protein Total Protein Albumin Triglycerides Lipase Arterial Blood Glucose 186 H Arterial Blood Ionized Calcium 4.5 L Urine WBC (Auto) Coronavirus (PCR) SARS-CoV-2 IgG Ab Crossmatch 06/07/20 06/07/20 06/07/20 13:41 14:58 14:58 WBC RBC 2.72 L Hgb 9.3 L Hct 27.2 L MCV 100 H MCH 34 H MCHC RDW Lymph % (Auto) Lymph # (Auto) Frio # (Auto) Baso # (Auto) Seg Neutrophils % Seg Neuts % (Manual) Lymphocytes % (Manual) Nucleated RBC % Seg Neutrophils # Seg Neutrophils # Man Lymphocytes # (Manual) Monocytes # (Manual) Eosinophils # (Manual) PT INR APTT D-Dimer Heparin Anti-Xa Level ABG pH POC ABG pCO2 POC ABG pO2 ABG pO2 ABG HCO3 ABG O2 Saturation ABG Base Excess ABG Hemoglobin ABG Oxyhemoglobin ABG Sodium ABG Potassium ABG Chloride ABG Glucose Oxyhemoglobin Carboxyhemoglobin Sodium Potassium Chloride 93.5 L Carbon Dioxide 39 H BUN 22 H Creatinine 0.4 L Glucose 188 H POC Glucose 201 H Lactic Acid Calcium Magnesium Ferritin Total Bilirubin Direct Bilirubin AST 61 H ALT 273 H Alkaline Phosphatase Lactate Dehydrogenase C-Reactive Protein Total Protein 5.9 L Albumin 2.7 L Triglycerides Lipase Arterial Blood Glucose Arterial Blood Ionized Calcium Urine WBC (Auto) Coronavirus (PCR) SARS-CoV-2 IgG Ab Crossmatch 06/07/20 06/08/20 06/08/20 23:18 05:31 12:07 WBC RBC Hgb Hct MCV MCH MCHC RDW Lymph % (Auto) Lymph # (Auto) Frio # (Auto) Baso # (Auto) Seg Neutrophils % Seg Neuts % (Manual) Lymphocytes % (Manual) Nucleated RBC % Seg Neutrophils # Seg Neutrophils # Man Lymphocytes # (Manual) Monocytes # (Manual) Eosinophils # (Manual) PT INR APTT D-Dimer Heparin Anti-Xa Level ABG pH POC ABG pCO2 POC ABG pO2 ABG pO2 ABG HCO3 ABG O2 Saturation ABG Base Excess ABG Hemoglobin ABG Oxyhemoglobin ABG Sodium ABG Potassium ABG Chloride ABG Glucose Oxyhemoglobin Carboxyhemoglobin Sodium Potassium Chloride Carbon Dioxide BUN Creatinine Glucose POC Glucose 214 H 129 H 179 H Lactic Acid Calcium Magnesium Ferritin Total Bilirubin Direct Bilirubin AST ALT Alkaline Phosphatase Lactate Dehydrogenase C-Reactive Protein Total Protein Albumin Triglycerides Lipase Arterial Blood Glucose Arterial Blood Ionized Calcium Urine WBC (Auto) Coronavirus (PCR) SARS-CoV-2 IgG Ab Crossmatch 06/08/20 06/08/20 06/09/20 18:18 23:35 05:42 WBC RBC Hgb Hct MCV MCH MCHC RDW Lymph % (Auto) Lymph # (Auto) Frio # (Auto) Baso # (Auto) Seg Neutrophils % Seg Neuts % (Manual) Lymphocytes % (Manual) Nucleated RBC % Seg Neutrophils # Seg Neutrophils # Man Lymphocytes # (Manual) Monocytes # (Manual) Eosinophils # (Manual) PT INR APTT D-Dimer Heparin Anti-Xa Level ABG pH POC ABG pCO2 POC ABG pO2 ABG pO2 ABG HCO3 ABG O2 Saturation ABG Base Excess ABG Hemoglobin ABG Oxyhemoglobin ABG Sodium ABG Potassium ABG Chloride ABG Glucose Oxyhemoglobin Carboxyhemoglobin Sodium Potassium Chloride Carbon Dioxide BUN Creatinine Glucose POC Glucose 172 H 177 H 137 H Lactic Acid Calcium Magnesium Ferritin Total Bilirubin Direct Bilirubin AST ALT Alkaline Phosphatase Lactate Dehydrogenase C-Reactive Protein Total Protein Albumin Triglycerides Lipase Arterial Blood Glucose Arterial Blood Ionized Calcium Urine WBC (Auto) Coronavirus (PCR) SARS-CoV-2 IgG Ab Crossmatch 06/09/20 06/09/20 06/09/20 06:20 07:55 07:55 WBC 12.4 H RBC 3.26 L Hgb 11.1 L Hct 33.4 L D MCV 102 H MCH 34 H MCHC RDW Lymph % (Auto) Lymph # (Auto) Frio # (Auto) Baso # (Auto) Seg Neutrophils % Seg Neuts % (Manual) Lymphocytes % (Manual) Nucleated RBC % Seg Neutrophils # Seg Neutrophils # Man Lymphocytes # (Manual) Monocytes # (Manual) Eosinophils # (Manual) PT INR APTT D-Dimer Heparin Anti-Xa Level ABG pH 7.466 H POC ABG pCO2 50.7 H POC ABG pO2 53.0 L ABG pO2 ABG HCO3 ABG O2 Saturation ABG Base Excess ABG Hemoglobin ABG Oxyhemoglobin ABG Sodium ABG Potassium 2.9 L ABG Chloride 93.0 L ABG Glucose 138 H Oxyhemoglobin Carboxyhemoglobin Sodium Potassium 3.0 L Chloride 92.3 L Carbon Dioxide 37 H BUN 21 H Creatinine 0.6 L Glucose 120 H POC Glucose Lactic Acid Calcium Magnesium Ferritin Total Bilirubin Direct Bilirubin AST ALT Alkaline Phosphatase Lactate Dehydrogenase C-Reactive Protein Total Protein Albumin Triglycerides Lipase Arterial Blood Glucose 138 H Arterial Blood Ionized Calcium 4.5 L Urine WBC (Auto) Coronavirus (PCR) SARS-CoV-2 IgG Ab Crossmatch 06/09/20 06/09/20 06/10/20 11:22 18:32 04:46 WBC RBC Hgb Hct MCV MCH MCHC RDW Lymph % (Auto) Lymph # (Auto) Frio # (Auto) Baso # (Auto) Seg Neutrophils % Seg Neuts % (Manual) Lymphocytes % (Manual) Nucleated RBC % Seg Neutrophils # Seg Neutrophils # Man Lymphocytes # (Manual) Monocytes # (Manual) Eosinophils # (Manual) PT INR APTT D-Dimer Heparin Anti-Xa Level ABG pH 7.501 H POC ABG pCO2 POC ABG pO2 126.5 H ABG pO2 ABG HCO3 ABG O2 Saturation ABG Base Excess ABG Hemoglobin 10.3 L ABG Oxyhemoglobin ABG Sodium ABG Potassium ABG Chloride ABG Glucose 220 H Oxyhemoglobin Carboxyhemoglobin Sodium Potassium Chloride Carbon Dioxide BUN Creatinine Glucose POC Glucose 117 H 121 H Lactic Acid Calcium Magnesium Ferritin Total Bilirubin Direct Bilirubin AST ALT Alkaline Phosphatase Lactate Dehydrogenase C-Reactive Protein Total Protein Albumin Triglycerides Lipase Arterial Blood Glucose 220 H Arterial Blood Ionized Calcium Urine WBC (Auto) Coronavirus (PCR) SARS-CoV-2 IgG Ab Crossmatch 06/10/20 06/10/20 06/10/20 05:30 09:38 12:03 WBC RBC Hgb Hct MCV MCH MCHC RDW Lymph % (Auto) Lymph # (Auto) Frio # (Auto) Baso # (Auto) Seg Neutrophils % Seg Neuts % (Manual) Lymphocytes % (Manual) Nucleated RBC % Seg Neutrophils # Seg Neutrophils # Man Lymphocytes # (Manual) Monocytes # (Manual) Eosinophils # (Manual) PT INR APTT D-Dimer Heparin Anti-Xa Level ABG pH POC ABG pCO2 POC ABG pO2 ABG pO2 ABG HCO3 ABG O2 Saturation ABG Base Excess ABG Hemoglobin ABG Oxyhemoglobin ABG Sodium ABG Potassium ABG Chloride ABG Glucose Oxyhemoglobin Carboxyhemoglobin Sodium Potassium Chloride Carbon Dioxide BUN Creatinine Glucose POC Glucose 181 H 204 H Lactic Acid Calcium Magnesium Ferritin Total Bilirubin Direct Bilirubin AST ALT Alkaline Phosphatase Lactate Dehydrogenase C-Reactive Protein Total Protein Albumin Triglycerides 738 H Lipase Arterial Blood Glucose Arterial Blood Ionized Calcium Urine WBC (Auto) Coronavirus (PCR) SARS-CoV-2 IgG Ab Crossmatch 06/10/20 06/11/20 06/11/20 17:17 00:04 04:38 WBC RBC Hgb Hct MCV MCH MCHC RDW Lymph % (Auto) Lymph # (Auto) Frio # (Auto) Baso # (Auto) Seg Neutrophils % Seg Neuts % (Manual) Lymphocytes % (Manual) Nucleated RBC % Seg Neutrophils # Seg Neutrophils # Man Lymphocytes # (Manual) Monocytes # (Manual) Eosinophils # (Manual) PT INR APTT D-Dimer Heparin Anti-Xa Level ABG pH 7.479 H POC ABG pCO2 POC ABG pO2 76.7 L ABG pO2 ABG HCO3 ABG O2 Saturation ABG Base Excess ABG Hemoglobin 9.8 L ABG Oxyhemoglobin ABG Sodium 135.8 L ABG Potassium ABG Chloride ABG Glucose 238 H Oxyhemoglobin Carboxyhemoglobin Sodium Potassium Chloride Carbon Dioxide BUN Creatinine Glucose POC Glucose 156 H 178 H Lactic Acid Calcium Magnesium Ferritin Total Bilirubin Direct Bilirubin AST ALT Alkaline Phosphatase Lactate Dehydrogenase C-Reactive Protein Total Protein Albumin Triglycerides Lipase Arterial Blood Glucose 238 H Arterial Blood Ionized Calcium Urine WBC (Auto) Coronavirus (PCR) SARS-CoV-2 IgG Ab Crossmatch 06/11/20 06/11/20 06/11/20 05:21 06:52 11:50 WBC RBC Hgb Hct MCV MCH MCHC RDW Lymph % (Auto) Lymph # (Auto) Frio # (Auto) Baso # (Auto) Seg Neutrophils % Seg Neuts % (Manual) Lymphocytes % (Manual) Nucleated RBC % Seg Neutrophils # Seg Neutrophils # Man Lymphocytes # (Manual) Monocytes # (Manual) Eosinophils # (Manual) PT INR APTT D-Dimer Heparin Anti-Xa Level ABG pH POC ABG pCO2 POC ABG pO2 ABG pO2 ABG HCO3 ABG O2 Saturation ABG Base Excess ABG Hemoglobin ABG Oxyhemoglobin ABG Sodium ABG Potassium ABG Chloride ABG Glucose Oxyhemoglobin Carboxyhemoglobin Sodium Potassium Chloride Carbon Dioxide BUN Creatinine Glucose POC Glucose 215 H 187 H Lactic Acid Calcium Magnesium Ferritin Total Bilirubin Direct Bilirubin AST ALT Alkaline Phosphatase Lactate Dehydrogenase C-Reactive Protein Total Protein Albumin Triglycerides 331 H Lipase Arterial Blood Glucose Arterial Blood Ionized Calcium Urine WBC (Auto) Coronavirus (PCR) SARS-CoV-2 IgG Ab Crossmatch 06/11/20 06/11/20 06/12/20 17:49 23:35 04:52 WBC RBC Hgb Hct MCV MCH MCHC RDW Lymph % (Auto) Lymph # (Auto) Frio # (Auto) Baso # (Auto) Seg Neutrophils % Seg Neuts % (Manual) Lymphocytes % (Manual) Nucleated RBC % Seg Neutrophils # Seg Neutrophils # Man Lymphocytes # (Manual) Monocytes # (Manual) Eosinophils # (Manual) PT INR APTT D-Dimer Heparin Anti-Xa Level ABG pH 7.486 H POC ABG pCO2 POC ABG pO2 ABG pO2 ABG HCO3 ABG O2 Saturation ABG Base Excess ABG Hemoglobin 9.4 L ABG Oxyhemoglobin ABG Sodium ABG Potassium 3.2 L ABG Chloride ABG Glucose 209 H Oxyhemoglobin Carboxyhemoglobin Sodium Potassium Chloride Carbon Dioxide BUN Creatinine Glucose POC Glucose 211 H 200 H Lactic Acid Calcium Magnesium Ferritin Total Bilirubin Direct Bilirubin AST ALT Alkaline Phosphatase Lactate Dehydrogenase C-Reactive Protein Total Protein Albumin Triglycerides Lipase Arterial Blood Glucose 209 H Arterial Blood Ionized Calcium Urine WBC (Auto) Coronavirus (PCR) SARS-CoV-2 IgG Ab Crossmatch 06/12/20 06/12/20 06/12/20 05:13 11:47 18:33 WBC RBC Hgb Hct MCV MCH MCHC RDW Lymph % (Auto) Lymph # (Auto) Frio # (Auto) Baso # (Auto) Seg Neutrophils % Seg Neuts % (Manual) Lymphocytes % (Manual) Nucleated RBC % Seg Neutrophils # Seg Neutrophils # Man Lymphocytes # (Manual) Monocytes # (Manual) Eosinophils # (Manual) PT INR APTT D-Dimer Heparin Anti-Xa Level ABG pH POC ABG pCO2 POC ABG pO2 ABG pO2 ABG HCO3 ABG O2 Saturation ABG Base Excess ABG Hemoglobin ABG Oxyhemoglobin ABG Sodium ABG Potassium ABG Chloride ABG Glucose Oxyhemoglobin Carboxyhemoglobin Sodium Potassium Chloride Carbon Dioxide BUN Creatinine Glucose POC Glucose 174 H 214 H 194 H Lactic Acid Calcium Magnesium Ferritin Total Bilirubin Direct Bilirubin AST ALT Alkaline Phosphatase Lactate Dehydrogenase C-Reactive Protein Total Protein Albumin Triglycerides Lipase Arterial Blood Glucose Arterial Blood Ionized Calcium Urine WBC (Auto) Coronavirus (PCR) SARS-CoV-2 IgG Ab Crossmatch 06/12/20 06/13/20 06/13/20 23:49 05:41 12:30 WBC RBC Hgb Hct MCV MCH MCHC RDW Lymph % (Auto) Lymph # (Auto) Frio # (Auto) Baso # (Auto) Seg Neutrophils % Seg Neuts % (Manual) Lymphocytes % (Manual) Nucleated RBC % Seg Neutrophils # Seg Neutrophils # Man Lymphocytes # (Manual) Monocytes # (Manual) Eosinophils # (Manual) PT INR APTT D-Dimer Heparin Anti-Xa Level ABG pH POC ABG pCO2 POC ABG pO2 ABG pO2 ABG HCO3 ABG O2 Saturation ABG Base Excess ABG Hemoglobin ABG Oxyhemoglobin ABG Sodium ABG Potassium ABG Chloride ABG Glucose Oxyhemoglobin Carboxyhemoglobin Sodium Potassium Chloride Carbon Dioxide BUN Creatinine Glucose POC Glucose 160 H 150 H 181 H Lactic Acid Calcium Magnesium Ferritin Total Bilirubin Direct Bilirubin AST ALT Alkaline Phosphatase Lactate Dehydrogenase C-Reactive Protein Total Protein Albumin Triglycerides Lipase Arterial Blood Glucose Arterial Blood Ionized Calcium Urine WBC (Auto) Coronavirus (PCR) SARS-CoV-2 IgG Ab Crossmatch 06/13/20 06/13/20 06/13/20 14:14 17:48 23:27 WBC 12.8 H RBC 2.33 L Hgb 8.0 L Hct 23.3 L MCV 100 H MCH 34 H MCHC RDW 15.7 H Lymph % (Auto) Lymph # (Auto) Frio # (Auto) Baso # (Auto) Seg Neutrophils % Seg Neuts % (Manual) 85.0 H Lymphocytes % (Manual) 10.0 L Nucleated RBC % Seg Neutrophils # Seg Neutrophils # Man 10.9 H Lymphocytes # (Manual) Monocytes # (Manual) Eosinophils # (Manual) PT INR APTT D-Dimer Heparin Anti-Xa Level ABG pH POC ABG pCO2 POC ABG pO2 ABG pO2 ABG HCO3 ABG O2 Saturation ABG Base Excess ABG Hemoglobin ABG Oxyhemoglobin ABG Sodium ABG Potassium ABG Chloride ABG Glucose Oxyhemoglobin Carboxyhemoglobin Sodium Potassium Chloride Carbon Dioxide BUN Creatinine Glucose POC Glucose 173 H 154 H Lactic Acid Calcium Magnesium Ferritin Total Bilirubin Direct Bilirubin AST ALT Alkaline Phosphatase Lactate Dehydrogenase C-Reactive Protein Total Protein Albumin Triglycerides Lipase Arterial Blood Glucose Arterial Blood Ionized Calcium Urine WBC (Auto) Coronavirus (PCR) SARS-CoV-2 IgG Ab Crossmatch 06/14/20 06/14/20 06/14/20 03:58 05:21 07:15 WBC 26.2 H RBC 2.97 L Hgb 9.7 L Hct 29.9 L D MCV 101 H MCH 33 H MCHC RDW 15.3 H Lymph % (Auto) Lymph # (Auto) Frio # (Auto) Baso # (Auto) Seg Neutrophils % Seg Neuts % (Manual) 79.0 H Lymphocytes % (Manual) 5.0 L Nucleated RBC % 3.0 H Seg Neutrophils # Seg Neutrophils # Man 20.7 H Lymphocytes # (Manual) Monocytes # (Manual) 1.3 H Eosinophils # (Manual) PT INR APTT D-Dimer Heparin Anti-Xa Level ABG pH POC ABG pCO2 51.5 H POC ABG pO2 70.0 L ABG pO2 ABG HCO3 ABG O2 Saturation ABG Base Excess ABG Hemoglobin 10.1 L ABG Oxyhemoglobin ABG Sodium 131.5 L ABG Potassium 3.1 L ABG Chloride 93.0 L ABG Glucose 188 H Oxyhemoglobin Carboxyhemoglobin Sodium Potassium Chloride Carbon Dioxide BUN Creatinine Glucose POC Glucose 147 H Lactic Acid Calcium Magnesium Ferritin Total Bilirubin Direct Bilirubin AST ALT Alkaline Phosphatase Lactate Dehydrogenase C-Reactive Protein Total Protein Albumin Triglycerides Lipase Arterial Blood Glucose 188 H Arterial Blood Ionized Calcium Urine WBC (Auto) Coronavirus (PCR) SARS-CoV-2 IgG Ab Crossmatch 06/14/20 06/14/20 06/14/20 07:15 11:30 11:50 WBC RBC Hgb Hct MCV MCH MCHC RDW Lymph % (Auto) Lymph # (Auto) Frio # (Auto) Baso # (Auto) Seg Neutrophils % Seg Neuts % (Manual) Lymphocytes % (Manual) Nucleated RBC % Seg Neutrophils # Seg Neutrophils # Man Lymphocytes # (Manual) Monocytes # (Manual) Eosinophils # (Manual) PT INR APTT D-Dimer Heparin Anti-Xa Level ABG pH POC ABG pCO2 POC ABG pO2 ABG pO2 ABG HCO3 ABG O2 Saturation ABG Base Excess ABG Hemoglobin ABG Oxyhemoglobin ABG Sodium ABG Potassium ABG Chloride ABG Glucose Oxyhemoglobin Carboxyhemoglobin Sodium 135 L Potassium 3.5 L Chloride 90.4 L Carbon Dioxide 38 H BUN Creatinine 0.5 L Glucose 190 H POC Glucose 176 H Lactic Acid Calcium Magnesium Ferritin 1496.0 H Total Bilirubin Direct Bilirubin AST ALT 81 H Alkaline Phosphatase Lactate Dehydrogenase C-Reactive Protein Total Protein Albumin 2.9 L Triglycerides Lipase Arterial Blood Glucose Arterial Blood Ionized Calcium Urine WBC (Auto) Coronavirus (PCR) SARS-CoV-2 IgG Ab Crossmatch 06/14/20 06/15/20 06/15/20 23:31 04:00 05:00 WBC RBC Hgb Hct MCV MCH MCHC RDW Lymph % (Auto) Lymph # (Auto) Frio # (Auto) Baso # (Auto) Seg Neutrophils % Seg Neuts % (Manual) Lymphocytes % (Manual) Nucleated RBC % Seg Neutrophils # Seg Neutrophils # Man Lymphocytes # (Manual) Monocytes # (Manual) Eosinophils # (Manual) PT INR APTT D-Dimer Heparin Anti-Xa Level ABG pH POC ABG pCO2 POC ABG pO2 ABG pO2 ABG HCO3 ABG O2 Saturation ABG Base Excess ABG Hemoglobin ABG Oxyhemoglobin ABG Sodium ABG Potassium ABG Chloride ABG Glucose Oxyhemoglobin Carboxyhemoglobin Sodium 133 L Potassium Chloride 91.1 L Carbon Dioxide 34 H BUN Creatinine 0.4 L Glucose 159 H POC Glucose 200 H Lactic Acid Calcium Magnesium Ferritin Total Bilirubin 2.00 H Direct Bilirubin AST 47 H ALT 77 H Alkaline Phosphatase Lactate Dehydrogenase C-Reactive Protein Total Protein Albumin 2.6 L Triglycerides 152 H Lipase Arterial Blood Glucose Arterial Blood Ionized Calcium Urine WBC (Auto) Coronavirus (PCR) SARS-CoV-2 IgG Ab Crossmatch 06/15/20 06/15/20 06/15/20 05:35 06:27 11:38 WBC RBC Hgb Hct MCV MCH MCHC RDW Lymph % (Auto) Lymph # (Auto) Frio # (Auto) Baso # (Auto) Seg Neutrophils % Seg Neuts % (Manual) Lymphocytes % (Manual) Nucleated RBC % Seg Neutrophils # Seg Neutrophils # Man Lymphocytes # (Manual) Monocytes # (Manual) Eosinophils # (Manual) PT INR APTT D-Dimer Heparin Anti-Xa Level ABG pH POC ABG pCO2 61.0 H POC ABG pO2 67.9 L ABG pO2 ABG HCO3 ABG O2 Saturation ABG Base Excess ABG Hemoglobin 10.4 L ABG Oxyhemoglobin ABG Sodium 132.7 L ABG Potassium 3.3 L ABG Chloride 92.0 L ABG Glucose 158 H Oxyhemoglobin Carboxyhemoglobin Sodium Potassium Chloride Carbon Dioxide BUN Creatinine Glucose POC Glucose 148 H 197 H Lactic Acid Calcium Magnesium Ferritin Total Bilirubin Direct Bilirubin AST ALT Alkaline Phosphatase Lactate Dehydrogenase C-Reactive Protein Total Protein Albumin Triglycerides Lipase Arterial Blood Glucose 158 H Arterial Blood Ionized Calcium Urine WBC (Auto) Coronavirus (PCR) SARS-CoV-2 IgG Ab Crossmatch 06/15/20 06/15/20 06/16/20 17:29 Unknown 00:01 WBC 20.7 H RBC 2.57 L Hgb 8.9 L Hct 25.8 L MCV 101 H MCH 35 H MCHC 35 H RDW 16.0 H Lymph % (Auto) Lymph # (Auto) Frio # (Auto) Baso # (Auto) Seg Neutrophils % Seg Neuts % (Manual) 83.0 H Lymphocytes % (Manual) 8.0 L Nucleated RBC % Seg Neutrophils # Seg Neutrophils # Man 17.2 H Lymphocytes # (Manual) Monocytes # (Manual) 1.2 H Eosinophils # (Manual) PT INR APTT D-Dimer Heparin Anti-Xa Level ABG pH POC ABG pCO2 POC ABG pO2 ABG pO2 ABG HCO3 ABG O2 Saturation ABG Base Excess ABG Hemoglobin ABG Oxyhemoglobin ABG Sodium ABG Potassium ABG Chloride ABG Glucose Oxyhemoglobin Carboxyhemoglobin Sodium Potassium Chloride Carbon Dioxide BUN Creatinine Glucose POC Glucose 231 H 257 H Lactic Acid Calcium Magnesium Ferritin Total Bilirubin Direct Bilirubin AST ALT Alkaline Phosphatase Lactate Dehydrogenase C-Reactive Protein Total Protein Albumin Triglycerides Lipase Arterial Blood Glucose Arterial Blood Ionized Calcium Urine WBC (Auto) Coronavirus (PCR) SARS-CoV-2 IgG Ab Crossmatch 06/16/20 06/16/20 06/16/20 04:00 04:00 05:22 WBC 13.8 H RBC 2.03 L Hgb 7.6 L Hct 20.7 L MCV 102 H MCH 37 H MCHC 37 H RDW 16.2 H Lymph % (Auto) 4.4 L Lymph # (Auto) 0.6 L Frio # (Auto) Baso # (Auto) Seg Neutrophils % Seg Neuts % (Manual) Lymphocytes % (Manual) Nucleated RBC % Seg Neutrophils # 12.7 H Seg Neutrophils # Man Lymphocytes # (Manual) Monocytes # (Manual) Eosinophils # (Manual) PT INR APTT D-Dimer Heparin Anti-Xa Level ABG pH POC ABG pCO2 POC ABG pO2 ABG pO2 ABG HCO3 ABG O2 Saturation ABG Base Excess ABG Hemoglobin ABG Oxyhemoglobin ABG Sodium ABG Potassium ABG Chloride ABG Glucose Oxyhemoglobin Carboxyhemoglobin Sodium 130 L Potassium Chloride 88.9 L Carbon Dioxide 36 H BUN Creatinine 0.3 L Glucose 276 H POC Glucose 250 H Lactic Acid Calcium Magnesium Ferritin Total Bilirubin Direct Bilirubin AST ALT Alkaline Phosphatase Lactate Dehydrogenase C-Reactive Protein Total Protein Albumin Triglycerides Lipase Arterial Blood Glucose Arterial Blood Ionized Calcium Urine WBC (Auto) Coronavirus (PCR) SARS-CoV-2 IgG Ab Crossmatch 06/16/20 06/16/20 06/17/20 12:44 18:18 00:39 WBC RBC Hgb Hct MCV MCH MCHC RDW Lymph % (Auto) Lymph # (Auto) Frio # (Auto) Baso # (Auto) Seg Neutrophils % Seg Neuts % (Manual) Lymphocytes % (Manual) Nucleated RBC % Seg Neutrophils # Seg Neutrophils # Man Lymphocytes # (Manual) Monocytes # (Manual) Eosinophils # (Manual) PT INR APTT D-Dimer Heparin Anti-Xa Level ABG pH POC ABG pCO2 POC ABG pO2 ABG pO2 ABG HCO3 ABG O2 Saturation ABG Base Excess ABG Hemoglobin ABG Oxyhemoglobin ABG Sodium ABG Potassium ABG Chloride ABG Glucose Oxyhemoglobin Carboxyhemoglobin Sodium Potassium Chloride Carbon Dioxide BUN Creatinine Glucose POC Glucose 279 H 239 H 247 H Lactic Acid Calcium Magnesium Ferritin Total Bilirubin Direct Bilirubin AST ALT Alkaline Phosphatase Lactate Dehydrogenase C-Reactive Protein Total Protein Albumin Triglycerides Lipase Arterial Blood Glucose Arterial Blood Ionized Calcium Urine WBC (Auto) Coronavirus (PCR) SARS-CoV-2 IgG Ab Crossmatch 06/17/20 06/17/20 06/17/20 03:40 04:08 10:54 WBC RBC Hgb Hct MCV MCH MCHC RDW Lymph % (Auto) Lymph # (Auto) Frio # (Auto) Baso # (Auto) Seg Neutrophils % Seg Neuts % (Manual) Lymphocytes % (Manual) Nucleated RBC % Seg Neutrophils # Seg Neutrophils # Man Lymphocytes # (Manual) Monocytes # (Manual) Eosinophils # (Manual) PT INR APTT D-Dimer Heparin Anti-Xa Level ABG pH POC ABG pCO2 65.7 H POC ABG pO2 ABG pO2 ABG HCO3 ABG O2 Saturation ABG Base Excess ABG Hemoglobin 11.9 L ABG Oxyhemoglobin ABG Sodium ABG Potassium ABG Chloride 93.0 L ABG Glucose 244 H Oxyhemoglobin Carboxyhemoglobin Sodium Potassium Chloride Carbon Dioxide BUN Creatinine Glucose POC Glucose 221 H 248 H Lactic Acid Calcium Magnesium Ferritin Total Bilirubin Direct Bilirubin AST ALT Alkaline Phosphatase Lactate Dehydrogenase C-Reactive Protein Total Protein Albumin Triglycerides Lipase Arterial Blood Glucose 244 H Arterial Blood Ionized Calcium Urine WBC (Auto) Coronavirus (PCR) SARS-CoV-2 IgG Ab Crossmatch 06/17/20 06/17/20 06/17/20 17:47 23:11 23:29 WBC RBC Hgb Hct MCV MCH MCHC RDW Lymph % (Auto) Lymph # (Auto) Frio # (Auto) Baso # (Auto) Seg Neutrophils % Seg Neuts % (Manual) Lymphocytes % (Manual) Nucleated RBC % Seg Neutrophils # Seg Neutrophils # Man Lymphocytes # (Manual) Monocytes # (Manual) Eosinophils # (Manual) PT INR APTT D-Dimer Heparin Anti-Xa Level ABG pH POC ABG pCO2 85.2 H POC ABG pO2 48.4 L ABG pO2 ABG HCO3 ABG O2 Saturation ABG Base Excess ABG Hemoglobin 8.0 L ABG Oxyhemoglobin ABG Sodium ABG Potassium ABG Chloride 95.0 L ABG Glucose 292 H Oxyhemoglobin Carboxyhemoglobin Sodium Potassium Chloride Carbon Dioxide BUN Creatinine Glucose POC Glucose 245 H 252 H Lactic Acid Calcium Magnesium Ferritin Total Bilirubin Direct Bilirubin AST ALT Alkaline Phosphatase Lactate Dehydrogenase C-Reactive Protein Total Protein Albumin Triglycerides Lipase Arterial Blood Glucose 292 H Arterial Blood Ionized Calcium Urine WBC (Auto) Coronavirus (PCR) SARS-CoV-2 IgG Ab Crossmatch 06/18/20 06/18/20 06/18/20 03:14 05:34 11:47 WBC RBC Hgb Hct MCV MCH MCHC RDW Lymph % (Auto) Lymph # (Auto) Frio # (Auto) Baso # (Auto) Seg Neutrophils % Seg Neuts % (Manual) Lymphocytes % (Manual) Nucleated RBC % Seg Neutrophils # Seg Neutrophils # Man Lymphocytes # (Manual) Monocytes # (Manual) Eosinophils # (Manual) PT INR APTT D-Dimer Heparin Anti-Xa Level ABG pH POC ABG pCO2 65.4 H POC ABG pO2 160.7 H ABG pO2 ABG HCO3 ABG O2 Saturation ABG Base Excess ABG Hemoglobin 7.8 L ABG Oxyhemoglobin ABG Sodium ABG Potassium ABG Chloride 95.0 L ABG Glucose 251 H Oxyhemoglobin Carboxyhemoglobin Sodium Potassium Chloride Carbon Dioxide BUN Creatinine Glucose POC Glucose 243 H 263 H Lactic Acid Calcium Magnesium Ferritin Total Bilirubin Direct Bilirubin AST ALT Alkaline Phosphatase Lactate Dehydrogenase C-Reactive Protein Total Protein Albumin Triglycerides Lipase Arterial Blood Glucose 251 H Arterial Blood Ionized Calcium Urine WBC (Auto) Coronavirus (PCR) SARS-CoV-2 IgG Ab Crossmatch 06/18/20 06/18/20 06/19/20 17:31 23:33 04:32 WBC RBC Hgb Hct MCV MCH MCHC RDW Lymph % (Auto) Lymph # (Auto) Frio # (Auto) Baso # (Auto) Seg Neutrophils % Seg Neuts % (Manual) Lymphocytes % (Manual) Nucleated RBC % Seg Neutrophils # Seg Neutrophils # Man Lymphocytes # (Manual) Monocytes # (Manual) Eosinophils # (Manual) PT INR APTT D-Dimer Heparin Anti-Xa Level ABG pH POC ABG pCO2 83.1 H POC ABG pO2 65.8 L ABG pO2 ABG HCO3 ABG O2 Saturation ABG Base Excess ABG Hemoglobin 8.9 L ABG Oxyhemoglobin ABG Sodium ABG Potassium ABG Chloride 96.0 L ABG Glucose 297 H Oxyhemoglobin Carboxyhemoglobin Sodium Potassium Chloride Carbon Dioxide BUN Creatinine Glucose POC Glucose 286 H 238 H Lactic Acid Calcium Magnesium Ferritin Total Bilirubin Direct Bilirubin AST ALT Alkaline Phosphatase Lactate Dehydrogenase C-Reactive Protein Total Protein Albumin Triglycerides Lipase Arterial Blood Glucose 297 H Arterial Blood Ionized Calcium Urine WBC (Auto) Coronavirus (PCR) SARS-CoV-2 IgG Ab Crossmatch 06/19/20 06/19/20 06/19/20 05:55 11:20 17:12 WBC RBC Hgb Hct MCV MCH MCHC RDW Lymph % (Auto) Lymph # (Auto) Frio # (Auto) Baso # (Auto) Seg Neutrophils % Seg Neuts % (Manual) Lymphocytes % (Manual) Nucleated RBC % Seg Neutrophils # Seg Neutrophils # Man Lymphocytes # (Manual) Monocytes # (Manual) Eosinophils # (Manual) PT INR APTT D-Dimer Heparin Anti-Xa Level ABG pH POC ABG pCO2 POC ABG pO2 ABG pO2 ABG HCO3 ABG O2 Saturation ABG Base Excess ABG Hemoglobin ABG Oxyhemoglobin ABG Sodium ABG Potassium ABG Chloride ABG Glucose Oxyhemoglobin Carboxyhemoglobin Sodium Potassium Chloride Carbon Dioxide BUN Creatinine Glucose POC Glucose 274 H 282 H 298 H Lactic Acid Calcium Magnesium Ferritin Total Bilirubin Direct Bilirubin AST ALT Alkaline Phosphatase Lactate Dehydrogenase C-Reactive Protein Total Protein Albumin Triglycerides Lipase Arterial Blood Glucose Arterial Blood Ionized Calcium Urine WBC (Auto) Coronavirus (PCR) SARS-CoV-2 IgG Ab Crossmatch 06/19/20 06/20/20 06/20/20 23:08 03:33 06:01 WBC RBC Hgb Hct MCV MCH MCHC RDW Lymph % (Auto) Lymph # (Auto) Frio # (Auto) Baso # (Auto) Seg Neutrophils % Seg Neuts % (Manual) Lymphocytes % (Manual) Nucleated RBC % Seg Neutrophils # Seg Neutrophils # Man Lymphocytes # (Manual) Monocytes # (Manual) Eosinophils # (Manual) PT INR APTT D-Dimer Heparin Anti-Xa Level ABG pH POC ABG pCO2 POC ABG pO2 ABG pO2 69.9 L ABG HCO3 50.8 H ABG O2 Saturation ABG Base Excess 24.2 H ABG Hemoglobin 5.8 L ABG Oxyhemoglobin ABG Sodium ABG Potassium ABG Chloride ABG Glucose Oxyhemoglobin Carboxyhemoglobin Sodium Potassium Chloride Carbon Dioxide BUN Creatinine Glucose POC Glucose 293 H 182 H Lactic Acid Calcium Magnesium Ferritin Total Bilirubin Direct Bilirubin AST ALT Alkaline Phosphatase Lactate Dehydrogenase C-Reactive Protein Total Protein Albumin Triglycerides Lipase Arterial Blood Glucose Arterial Blood Ionized Calcium Urine WBC (Auto) Coronavirus (PCR) SARS-CoV-2 IgG Ab Crossmatch 06/20/20 06/20/20 06/20/20 11:47 17:46 23:37 WBC RBC Hgb Hct MCV MCH MCHC RDW Lymph % (Auto) Lymph # (Auto) Frio # (Auto) Baso # (Auto) Seg Neutrophils % Seg Neuts % (Manual) Lymphocytes % (Manual) Nucleated RBC % Seg Neutrophils # Seg Neutrophils # Man Lymphocytes # (Manual) Monocytes # (Manual) Eosinophils # (Manual) PT INR APTT D-Dimer Heparin Anti-Xa Level ABG pH POC ABG pCO2 POC ABG pO2 ABG pO2 ABG HCO3 ABG O2 Saturation ABG Base Excess ABG Hemoglobin ABG Oxyhemoglobin ABG Sodium ABG Potassium ABG Chloride ABG Glucose Oxyhemoglobin Carboxyhemoglobin Sodium Potassium Chloride Carbon Dioxide BUN Creatinine Glucose POC Glucose 170 H 215 H 256 H Lactic Acid Calcium Magnesium Ferritin Total Bilirubin Direct Bilirubin AST ALT Alkaline Phosphatase Lactate Dehydrogenase C-Reactive Protein Total Protein Albumin Triglycerides Lipase Arterial Blood Glucose Arterial Blood Ionized Calcium Urine WBC (Auto) Coronavirus (PCR) SARS-CoV-2 IgG Ab Crossmatch 06/21/20 06/21/20 06/21/20 04:00 05:14 05:51 WBC RBC Hgb Hct MCV MCH MCHC RDW Lymph % (Auto) Lymph # (Auto) Frio # (Auto) Baso # (Auto) Seg Neutrophils % Seg Neuts % (Manual) Lymphocytes % (Manual) Nucleated RBC % Seg Neutrophils # Seg Neutrophils # Man Lymphocytes # (Manual) Monocytes # (Manual) Eosinophils # (Manual) PT INR APTT D-Dimer Heparin Anti-Xa Level ABG pH 7.474 H POC ABG pCO2 POC ABG pO2 ABG pO2 ABG HCO3 52.1 H ABG O2 Saturation ABG Base Excess 23.3 H ABG Hemoglobin 5.3 L ABG Oxyhemoglobin ABG Sodium ABG Potassium ABG Chloride ABG Glucose Oxyhemoglobin 93.8 L Carboxyhemoglobin Sodium Potassium Chloride Carbon Dioxide BUN Creatinine Glucose POC Glucose 122 H 129 H Lactic Acid Calcium Magnesium Ferritin Total Bilirubin Direct Bilirubin AST ALT Alkaline Phosphatase Lactate Dehydrogenase C-Reactive Protein Total Protein Albumin Triglycerides Lipase Arterial Blood Glucose Arterial Blood Ionized Calcium Urine WBC (Auto) Coronavirus (PCR) SARS-CoV-2 IgG Ab Crossmatch 06/21/20 06/21/20 06/21/20 11:00 11:00 11:42 WBC 14.2 H RBC 1.85 L Hgb 6.2 L Hct 19.5 L* MCV 105 H MCH 34 H MCHC RDW 18.0 H Lymph % (Auto) Lymph # (Auto) Frio # (Auto) Baso # (Auto) Seg Neutrophils % Seg Neuts % (Manual) Lymphocytes % (Manual) Nucleated RBC % Seg Neutrophils # Seg Neutrophils # Man Lymphocytes # (Manual) Monocytes # (Manual) Eosinophils # (Manual) PT INR APTT D-Dimer Heparin Anti-Xa Level ABG pH POC ABG pCO2 POC ABG pO2 ABG pO2 ABG HCO3 ABG O2 Saturation ABG Base Excess ABG Hemoglobin ABG Oxyhemoglobin ABG Sodium ABG Potassium ABG Chloride ABG Glucose Oxyhemoglobin Carboxyhemoglobin Sodium 147 H Potassium Chloride Carbon Dioxide 51 H* BUN 31 H Creatinine 0.5 L Glucose 224 H POC Glucose 217 H Lactic Acid Calcium Magnesium Ferritin Total Bilirubin Direct Bilirubin AST ALT Alkaline Phosphatase Lactate Dehydrogenase C-Reactive Protein Total Protein Albumin Triglycerides Lipase Arterial Blood Glucose Arterial Blood Ionized Calcium Urine WBC (Auto) Coronavirus (PCR) SARS-CoV-2 IgG Ab Crossmatch 06/21/20 06/21/20 06/21/20 14:18 14:30 18:36 WBC RBC Hgb Hct MCV MCH MCHC RDW Lymph % (Auto) Lymph # (Auto) Frio # (Auto) Baso # (Auto) Seg Neutrophils % Seg Neuts % (Manual) Lymphocytes % (Manual) Nucleated RBC % Seg Neutrophils # Seg Neutrophils # Man Lymphocytes # (Manual) Monocytes # (Manual) Eosinophils # (Manual) PT 15.1 H INR 1.19 H APTT D-Dimer Heparin Anti-Xa Level ABG pH POC ABG pCO2 POC ABG pO2 ABG pO2 ABG HCO3 ABG O2 Saturation ABG Base Excess ABG Hemoglobin ABG Oxyhemoglobin ABG Sodium ABG Potassium ABG Chloride ABG Glucose Oxyhemoglobin Carboxyhemoglobin Sodium Potassium Chloride Carbon Dioxide BUN Creatinine Glucose POC Glucose 185 H Lactic Acid Calcium Magnesium Ferritin Total Bilirubin Direct Bilirubin AST ALT Alkaline Phosphatase Lactate Dehydrogenase C-Reactive Protein Total Protein Albumin Triglycerides Lipase Arterial Blood Glucose Arterial Blood Ionized Calcium Urine WBC (Auto) Coronavirus (PCR) SARS-CoV-2 IgG Ab Crossmatch See Detail 06/21/20 06/22/20 06/22/20 21:14 03:50 04:00 WBC RBC Hgb Hct MCV MCH MCHC RDW Lymph % (Auto) Lymph # (Auto) Frio # (Auto) Baso # (Auto) Seg Neutrophils % Seg Neuts % (Manual) Lymphocytes % (Manual) Nucleated RBC % Seg Neutrophils # Seg Neutrophils # Man Lymphocytes # (Manual) Monocytes # (Manual) Eosinophils # (Manual) PT INR APTT D-Dimer Heparin Anti-Xa Level ABG pH 7.451 H POC ABG pCO2 POC ABG pO2 ABG pO2 ABG HCO3 47.5 H ABG O2 Saturation ABG Base Excess 22.0 H ABG Hemoglobin < 5.1 L ABG Oxyhemoglobin ABG Sodium ABG Potassium ABG Chloride ABG Glucose Oxyhemoglobin 94.1 L Carboxyhemoglobin Sodium 149 H Potassium 3.5 L Chloride Carbon Dioxide 42 H* D BUN 34 H Creatinine 0.4 L Glucose 219 H POC Glucose 250 H Lactic Acid Calcium Magnesium Ferritin Total Bilirubin Direct Bilirubin AST ALT Alkaline Phosphatase Lactate Dehydrogenase C-Reactive Protein Total Protein Albumin Triglycerides Lipase Arterial Blood Glucose Arterial Blood Ionized Calcium Urine WBC (Auto) Coronavirus (PCR) SARS-CoV-2 IgG Ab Crossmatch 06/22/20 06/22/20 06/22/20 12:16 14:29 17:56 WBC RBC Hgb Hct MCV MCH MCHC RDW Lymph % (Auto) Lymph # (Auto) Frio # (Auto) Baso # (Auto) Seg Neutrophils % Seg Neuts % (Manual) Lymphocytes % (Manual) Nucleated RBC % Seg Neutrophils # Seg Neutrophils # Man Lymphocytes # (Manual) Monocytes # (Manual) Eosinophils # (Manual) PT 11.8 L INR APTT 23.5 L D-Dimer Heparin Anti-Xa Level ABG pH POC ABG pCO2 POC ABG pO2 ABG pO2 ABG HCO3 ABG O2 Saturation ABG Base Excess ABG Hemoglobin ABG Oxyhemoglobin ABG Sodium ABG Potassium ABG Chloride ABG Glucose Oxyhemoglobin Carboxyhemoglobin Sodium Potassium Chloride Carbon Dioxide BUN Creatinine Glucose POC Glucose 215 H 215 H Lactic Acid Calcium Magnesium Ferritin Total Bilirubin Direct Bilirubin AST ALT Alkaline Phosphatase Lactate Dehydrogenase C-Reactive Protein Total Protein Albumin Triglycerides Lipase Arterial Blood Glucose Arterial Blood Ionized Calcium Urine WBC (Auto) Coronavirus (PCR) SARS-CoV-2 IgG Ab Crossmatch 06/22/20 06/22/20 06/22/20 23:36 23:45 Unknown WBC 14.1 H RBC 2.70 L Hgb 8.9 L 8.9 L Hct 26.9 L 27.2 L D MCV 101 H MCH 33 H MCHC RDW 17.7 H Lymph % (Auto) Lymph # (Auto) Frio # (Auto) Baso # (Auto) Seg Neutrophils % Seg Neuts % (Manual) 92.0 H Lymphocytes % (Manual) 5.0 L Nucleated RBC % Seg Neutrophils # Seg Neutrophils # Man 13.0 H Lymphocytes # (Manual) 0.7 L Monocytes # (Manual) Eosinophils # (Manual) PT INR APTT D-Dimer Heparin Anti-Xa Level ABG pH POC ABG pCO2 POC ABG pO2 ABG pO2 ABG HCO3 ABG O2 Saturation ABG Base Excess ABG Hemoglobin ABG Oxyhemoglobin ABG Sodium ABG Potassium ABG Chloride ABG Glucose Oxyhemoglobin Carboxyhemoglobin Sodium Potassium Chloride Carbon Dioxide BUN Creatinine Glucose POC Glucose 208 H Lactic Acid Calcium Magnesium Ferritin Total Bilirubin Direct Bilirubin AST ALT Alkaline Phosphatase Lactate Dehydrogenase C-Reactive Protein Total Protein Albumin Triglycerides Lipase Arterial Blood Glucose Arterial Blood Ionized Calcium Urine WBC (Auto) Coronavirus (PCR) SARS-CoV-2 IgG Ab Crossmatch 06/23/20 06/23/20 06/23/20 05:17 05:19 06:50 WBC RBC Hgb Hct MCV MCH MCHC RDW Lymph % (Auto) Lymph # (Auto) Frio # (Auto) Baso # (Auto) Seg Neutrophils % Seg Neuts % (Manual) Lymphocytes % (Manual) Nucleated RBC % Seg Neutrophils # Seg Neutrophils # Man Lymphocytes # (Manual) Monocytes # (Manual) Eosinophils # (Manual) PT INR APTT D-Dimer Heparin Anti-Xa Level ABG pH POC ABG pCO2 69.7 H POC ABG pO2 63.3 L ABG pO2 ABG HCO3 ABG O2 Saturation ABG Base Excess ABG Hemoglobin 10.1 L ABG Oxyhemoglobin ABG Sodium ABG Potassium 3.3 L ABG Chloride ABG Glucose 226 H Oxyhemoglobin Carboxyhemoglobin Sodium Potassium 3.0 L Chloride Carbon Dioxide 41 H* BUN 26 H Creatinine 0.4 L Glucose 209 H POC Glucose 200 H Lactic Acid Calcium Magnesium Ferritin Total Bilirubin Direct Bilirubin AST ALT Alkaline Phosphatase Lactate Dehydrogenase C-Reactive Protein Total Protein Albumin 2.9 L Triglycerides Lipase Arterial Blood Glucose 226 H Arterial Blood Ionized Calcium Urine WBC (Auto) Coronavirus (PCR) SARS-CoV-2 IgG Ab Crossmatch 06/23/20 06/23/20 06/23/20 09:41 12:04 18:16 WBC RBC Hgb 9.1 L Hct 28.0 L MCV MCH MCHC RDW Lymph % (Auto) Lymph # (Auto) Frio # (Auto) Baso # (Auto) Seg Neutrophils % Seg Neuts % (Manual) Lymphocytes % (Manual) Nucleated RBC % Seg Neutrophils # Seg Neutrophils # Man Lymphocytes # (Manual) Monocytes # (Manual) Eosinophils # (Manual) PT INR APTT D-Dimer Heparin Anti-Xa Level ABG pH POC ABG pCO2 POC ABG pO2 ABG pO2 ABG HCO3 ABG O2 Saturation ABG Base Excess ABG Hemoglobin ABG Oxyhemoglobin ABG Sodium ABG Potassium ABG Chloride ABG Glucose Oxyhemoglobin Carboxyhemoglobin Sodium Potassium Chloride Carbon Dioxide BUN Creatinine Glucose POC Glucose 146 H 162 H Lactic Acid Calcium Magnesium Ferritin Total Bilirubin Direct Bilirubin AST ALT Alkaline Phosphatase Lactate Dehydrogenase C-Reactive Protein Total Protein Albumin Triglycerides Lipase Arterial Blood Glucose Arterial Blood Ionized Calcium Urine WBC (Auto) Coronavirus (PCR) SARS-CoV-2 IgG Ab Crossmatch 06/23/20 06/23/20 06/24/20 23:24 23:41 02:39 WBC RBC Hgb 8.2 L 8.8 L Hct 24.9 L 26.8 L MCV MCH MCHC RDW Lymph % (Auto) Lymph # (Auto) Frio # (Auto) Baso # (Auto) Seg Neutrophils % Seg Neuts % (Manual) Lymphocytes % (Manual) Nucleated RBC % Seg Neutrophils # Seg Neutrophils # Man Lymphocytes # (Manual) Monocytes # (Manual) Eosinophils # (Manual) PT INR APTT D-Dimer Heparin Anti-Xa Level ABG pH POC ABG pCO2 POC ABG pO2 ABG pO2 ABG HCO3 ABG O2 Saturation ABG Base Excess ABG Hemoglobin ABG Oxyhemoglobin ABG Sodium ABG Potassium ABG Chloride ABG Glucose Oxyhemoglobin Carboxyhemoglobin Sodium Potassium Chloride Carbon Dioxide BUN Creatinine Glucose POC Glucose 248 H Lactic Acid Calcium Magnesium Ferritin Total Bilirubin Direct Bilirubin AST ALT Alkaline Phosphatase Lactate Dehydrogenase C-Reactive Protein Total Protein Albumin Triglycerides Lipase Arterial Blood Glucose Arterial Blood Ionized Calcium Urine WBC (Auto) Coronavirus (PCR) SARS-CoV-2 IgG Ab Crossmatch 06/24/20 06/24/20 06/24/20 02:39 02:45 05:31 WBC RBC Hgb Hct MCV MCH MCHC RDW Lymph % (Auto) Lymph # (Auto) Frio # (Auto) Baso # (Auto) Seg Neutrophils % Seg Neuts % (Manual) Lymphocytes % (Manual) Nucleated RBC % Seg Neutrophils # Seg Neutrophils # Man Lymphocytes # (Manual) Monocytes # (Manual) Eosinophils # (Manual) PT INR APTT D-Dimer Heparin Anti-Xa Level ABG pH POC ABG pCO2 66.9 H POC ABG pO2 109.7 H ABG pO2 ABG HCO3 ABG O2 Saturation ABG Base Excess ABG Hemoglobin 9.7 L ABG Oxyhemoglobin ABG Sodium 135.0 L ABG Potassium ABG Chloride 97.0 L ABG Glucose 277 H Oxyhemoglobin Carboxyhemoglobin Sodium 136 L Potassium Chloride 95.0 L Carbon Dioxide 34 H D BUN 24 H Creatinine 0.3 L Glucose 260 H POC Glucose 164 H Lactic Acid Calcium Magnesium Ferritin Total Bilirubin Direct Bilirubin AST ALT Alkaline Phosphatase Lactate Dehydrogenase C-Reactive Protein Total Protein 5.2 L Albumin 2.6 L Triglycerides Lipase Arterial Blood Glucose 277 H Arterial Blood Ionized Calcium Urine WBC (Auto) Coronavirus (PCR) SARS-CoV-2 IgG Ab Crossmatch 06/24/20 06/24/20 06/24/20 10:00 11:49 17:39 WBC RBC Hgb 8.9 L Hct 26.5 L MCV MCH MCHC RDW Lymph % (Auto) Lymph # (Auto) Frio # (Auto) Baso # (Auto) Seg Neutrophils % Seg Neuts % (Manual) Lymphocytes % (Manual) Nucleated RBC % Seg Neutrophils # Seg Neutrophils # Man Lymphocytes # (Manual) Monocytes # (Manual) Eosinophils # (Manual) PT INR APTT D-Dimer Heparin Anti-Xa Level ABG pH POC ABG pCO2 POC ABG pO2 ABG pO2 ABG HCO3 ABG O2 Saturation ABG Base Excess ABG Hemoglobin ABG Oxyhemoglobin ABG Sodium ABG Potassium ABG Chloride ABG Glucose Oxyhemoglobin Carboxyhemoglobin Sodium Potassium Chloride Carbon Dioxide BUN Creatinine Glucose POC Glucose 198 H 223 H Lactic Acid Calcium Magnesium Ferritin Total Bilirubin Direct Bilirubin AST ALT Alkaline Phosphatase Lactate Dehydrogenase C-Reactive Protein Total Protein Albumin Triglycerides Lipase Arterial Blood Glucose Arterial Blood Ionized Calcium Urine WBC (Auto) Coronavirus (PCR) SARS-CoV-2 IgG Ab Crossmatch 06/24/20 06/25/20 06/25/20 23:56 02:16 04:08 WBC RBC Hgb Hct MCV MCH MCHC RDW Lymph % (Auto) Lymph # (Auto) Frio # (Auto) Baso # (Auto) Seg Neutrophils % Seg Neuts % (Manual) Lymphocytes % (Manual) Nucleated RBC % Seg Neutrophils # Seg Neutrophils # Man Lymphocytes # (Manual) Monocytes # (Manual) Eosinophils # (Manual) PT INR APTT D-Dimer Heparin Anti-Xa Level ABG pH 7.454 H POC ABG pCO2 56.9 H POC ABG pO2 61.0 L ABG pO2 ABG HCO3 ABG O2 Saturation ABG Base Excess ABG Hemoglobin ABG Oxyhemoglobin ABG Sodium 134.3 L ABG Potassium ABG Chloride 92.0 L ABG Glucose 246 H Oxyhemoglobin Carboxyhemoglobin Sodium 134 L Potassium Chloride 89.7 L Carbon Dioxide 36 H BUN Creatinine 0.3 L Glucose 254 H POC Glucose 225 H Lactic Acid Calcium Magnesium Ferritin Total Bilirubin Direct Bilirubin AST ALT Alkaline Phosphatase Lactate Dehydrogenase C-Reactive Protein Total Protein Albumin 2.9 L Triglycerides Lipase Arterial Blood Glucose 246 H Arterial Blood Ionized Calcium Urine WBC (Auto) Coronavirus (PCR) SARS-CoV-2 IgG Ab Crossmatch 06/25/20 06/25/20 06/25/20 05:44 11:35 17:33 WBC RBC Hgb Hct MCV MCH MCHC RDW Lymph % (Auto) Lymph # (Auto) Frio # (Auto) Baso # (Auto) Seg Neutrophils % Seg Neuts % (Manual) Lymphocytes % (Manual) Nucleated RBC % Seg Neutrophils # Seg Neutrophils # Man Lymphocytes # (Manual) Monocytes # (Manual) Eosinophils # (Manual) PT INR APTT D-Dimer Heparin Anti-Xa Level ABG pH POC ABG pCO2 POC ABG pO2 ABG pO2 ABG HCO3 ABG O2 Saturation ABG Base Excess ABG Hemoglobin ABG Oxyhemoglobin ABG Sodium ABG Potassium ABG Chloride ABG Glucose Oxyhemoglobin Carboxyhemoglobin Sodium Potassium Chloride Carbon Dioxide BUN Creatinine Glucose POC Glucose 170 H 175 H 229 H Lactic Acid Calcium Magnesium Ferritin Total Bilirubin Direct Bilirubin AST ALT Alkaline Phosphatase Lactate Dehydrogenase C-Reactive Protein Total Protein Albumin Triglycerides Lipase Arterial Blood Glucose Arterial Blood Ionized Calcium Urine WBC (Auto) Coronavirus (PCR) SARS-CoV-2 IgG Ab Crossmatch 06/25/20 06/26/20 06/26/20 23:55 02:17 02:17 WBC RBC Hgb 10.0 L Hct 30.4 L MCV MCH MCHC RDW Lymph % (Auto) Lymph # (Auto) Frio # (Auto) Baso # (Auto) Seg Neutrophils % Seg Neuts % (Manual) Lymphocytes % (Manual) Nucleated RBC % Seg Neutrophils # Seg Neutrophils # Man Lymphocytes # (Manual) Monocytes # (Manual) Eosinophils # (Manual) PT INR APTT D-Dimer Heparin Anti-Xa Level ABG pH POC ABG pCO2 POC ABG pO2 ABG pO2 ABG HCO3 ABG O2 Saturation ABG Base Excess ABG Hemoglobin ABG Oxyhemoglobin ABG Sodium ABG Potassium ABG Chloride ABG Glucose Oxyhemoglobin Carboxyhemoglobin Sodium 136 L Potassium Chloride 90.1 L Carbon Dioxide 39 H BUN Creatinine 0.2 L Glucose 232 H POC Glucose 192 H Lactic Acid Calcium Magnesium Ferritin Total Bilirubin Direct Bilirubin AST ALT Alkaline Phosphatase Lactate Dehydrogenase C-Reactive Protein Total Protein 6.1 L Albumin 2.9 L Triglycerides Lipase Arterial Blood Glucose Arterial Blood Ionized Calcium Urine WBC (Auto) Coronavirus (PCR) SARS-CoV-2 IgG Ab Crossmatch 06/26/20 06/26/20 06/26/20 04:15 04:49 05:28 WBC RBC Hgb Hct MCV MCH MCHC RDW Lymph % (Auto) Lymph # (Auto) Frio # (Auto) Baso # (Auto) Seg Neutrophils % Seg Neuts % (Manual) Lymphocytes % (Manual) Nucleated RBC % Seg Neutrophils # Seg Neutrophils # Man Lymphocytes # (Manual) Monocytes # (Manual) Eosinophils # (Manual) PT INR APTT D-Dimer Heparin Anti-Xa Level ABG pH 7.453 H POC ABG pCO2 59.6 H POC ABG pO2 ABG pO2 ABG HCO3 ABG O2 Saturation ABG Base Excess ABG Hemoglobin 10.0 L ABG Oxyhemoglobin ABG Sodium 134.2 L ABG Potassium 3.3 L ABG Chloride 92.0 L ABG Glucose 305 H Oxyhemoglobin Carboxyhemoglobin Sodium Potassium Chloride Carbon Dioxide BUN Creatinine Glucose POC Glucose 234 H Lactic Acid Calcium Magnesium Ferritin Total Bilirubin Direct Bilirubin AST ALT Alkaline Phosphatase Lactate Dehydrogenase C-Reactive Protein Total Protein Albumin Triglycerides 203 H Lipase Arterial Blood Glucose 305 H Arterial Blood Ionized Calcium Urine WBC (Auto) Coronavirus (PCR) SARS-CoV-2 IgG Ab Crossmatch 06/26/20 06/26/20 06/26/20 11:58 17:58 21:32 WBC RBC Hgb Hct MCV MCH MCHC RDW Lymph % (Auto) Lymph # (Auto) Frio # (Auto) Baso # (Auto) Seg Neutrophils % Seg Neuts % (Manual) Lymphocytes % (Manual) Nucleated RBC % Seg Neutrophils # Seg Neutrophils # Man Lymphocytes # (Manual) Monocytes # (Manual) Eosinophils # (Manual) PT INR APTT D-Dimer Heparin Anti-Xa Level ABG pH POC ABG pCO2 POC ABG pO2 ABG pO2 ABG HCO3 ABG O2 Saturation ABG Base Excess ABG Hemoglobin ABG Oxyhemoglobin ABG Sodium ABG Potassium ABG Chloride ABG Glucose Oxyhemoglobin Carboxyhemoglobin Sodium Potassium Chloride Carbon Dioxide BUN Creatinine Glucose POC Glucose 198 H 193 H 191 H Lactic Acid Calcium Magnesium Ferritin Total Bilirubin Direct Bilirubin AST ALT Alkaline Phosphatase Lactate Dehydrogenase C-Reactive Protein Total Protein Albumin Triglycerides Lipase Arterial Blood Glucose Arterial Blood Ionized Calcium Urine WBC (Auto) Coronavirus (PCR) SARS-CoV-2 IgG Ab Crossmatch 06/26/20 06/27/20 06/27/20 23:40 04:35 05:32 WBC RBC Hgb Hct MCV MCH MCHC RDW Lymph % (Auto) Lymph # (Auto) Frio # (Auto) Baso # (Auto) Seg Neutrophils % Seg Neuts % (Manual) Lymphocytes % (Manual) Nucleated RBC % Seg Neutrophils # Seg Neutrophils # Man Lymphocytes # (Manual) Monocytes # (Manual) Eosinophils # (Manual) PT INR APTT D-Dimer Heparin Anti-Xa Level ABG pH 7.464 H POC ABG pCO2 60.8 H POC ABG pO2 ABG pO2 ABG HCO3 ABG O2 Saturation ABG Base Excess ABG Hemoglobin 10.1 L ABG Oxyhemoglobin ABG Sodium ABG Potassium 2.9 L ABG Chloride 92.0 L ABG Glucose 298 H Oxyhemoglobin Carboxyhemoglobin Sodium Potassium Chloride Carbon Dioxide BUN Creatinine Glucose POC Glucose 241 H 211 H Lactic Acid Calcium Magnesium Ferritin Total Bilirubin Direct Bilirubin AST ALT Alkaline Phosphatase Lactate Dehydrogenase C-Reactive Protein Total Protein Albumin Triglycerides Lipase Arterial Blood Glucose 298 H Arterial Blood Ionized Calcium Urine WBC (Auto) Coronavirus (PCR) SARS-CoV-2 IgG Ab Crossmatch 06/27/20 06/27/20 06/27/20 12:37 18:08 20:52 WBC RBC Hgb Hct MCV MCH MCHC RDW Lymph % (Auto) Lymph # (Auto) Frio # (Auto) Baso # (Auto) Seg Neutrophils % Seg Neuts % (Manual) Lymphocytes % (Manual) Nucleated RBC % Seg Neutrophils # Seg Neutrophils # Man Lymphocytes # (Manual) Monocytes # (Manual) Eosinophils # (Manual) PT INR APTT D-Dimer Heparin Anti-Xa Level ABG pH POC ABG pCO2 POC ABG pO2 ABG pO2 ABG HCO3 ABG O2 Saturation ABG Base Excess ABG Hemoglobin ABG Oxyhemoglobin ABG Sodium ABG Potassium ABG Chloride ABG Glucose Oxyhemoglobin Carboxyhemoglobin Sodium Potassium Chloride Carbon Dioxide BUN Creatinine Glucose POC Glucose 182 H 197 H 195 H Lactic Acid Calcium Magnesium Ferritin Total Bilirubin Direct Bilirubin AST ALT Alkaline Phosphatase Lactate Dehydrogenase C-Reactive Protein Total Protein Albumin Triglycerides Lipase Arterial Blood Glucose Arterial Blood Ionized Calcium Urine WBC (Auto) Coronavirus (PCR) SARS-CoV-2 IgG Ab Crossmatch 06/27/20 06/28/20 06/28/20 Unknown 04:17 04:50 WBC RBC Hgb Hct MCV MCH MCHC RDW Lymph % (Auto) Lymph # (Auto) Frio # (Auto) Baso # (Auto) Seg Neutrophils % Seg Neuts % (Manual) Lymphocytes % (Manual) Nucleated RBC % Seg Neutrophils # Seg Neutrophils # Man Lymphocytes # (Manual) Monocytes # (Manual) Eosinophils # (Manual) PT INR APTT D-Dimer Heparin Anti-Xa Level ABG pH POC ABG pCO2 58.6 H POC ABG pO2 60.1 L ABG pO2 ABG HCO3 ABG O2 Saturation ABG Base Excess ABG Hemoglobin 10.0 L ABG Oxyhemoglobin ABG Sodium 125.3 L ABG Potassium ABG Chloride 93.0 L ABG Glucose 308 H Oxyhemoglobin Carboxyhemoglobin Sodium Potassium 2.9 L* Chloride 93.4 L Carbon Dioxide 42 H* BUN Creatinine 0.3 L Glucose 211 H POC Glucose 252 H Lactic Acid Calcium 8.1 L Magnesium Ferritin Total Bilirubin Direct Bilirubin AST ALT Alkaline Phosphatase Lactate Dehydrogenase C-Reactive Protein Total Protein 5.1 L Albumin 2.4 L Triglycerides Lipase Arterial Blood Glucose 308 H Arterial Blood Ionized Calcium Urine WBC (Auto) Coronavirus (PCR) SARS-CoV-2 IgG Ab Crossmatch 06/28/20 06/28/20 06/28/20 06:35 06:35 11:36 WBC 18.9 H RBC 2.85 L Hgb 9.5 L Hct 28.4 L MCV 100 H MCH 33 H MCHC RDW 17.3 H Lymph % (Auto) Lymph # (Auto) Frio # (Auto) Baso # (Auto) Seg Neutrophils % 88.6 H Seg Neuts % (Manual) 95.0 H Lymphocytes % (Manual) 1.0 L Nucleated RBC % Seg Neutrophils # 15.9 H Seg Neutrophils # Man 18.0 H Lymphocytes # (Manual) 0.2 L Monocytes # (Manual) Eosinophils # (Manual) PT INR APTT D-Dimer Heparin Anti-Xa Level ABG pH POC ABG pCO2 POC ABG pO2 ABG pO2 ABG HCO3 ABG O2 Saturation ABG Base Excess ABG Hemoglobin ABG Oxyhemoglobin ABG Sodium ABG Potassium ABG Chloride ABG Glucose Oxyhemoglobin Carboxyhemoglobin Sodium Potassium Chloride 94.2 L Carbon Dioxide 38 H BUN Creatinine 0.3 L Glucose 228 H POC Glucose 243 H Lactic Acid Calcium Magnesium Ferritin Total Bilirubin Direct Bilirubin AST ALT Alkaline Phosphatase Lactate Dehydrogenase C-Reactive Protein Total Protein 6.1 L Albumin 2.7 L Triglycerides Lipase Arterial Blood Glucose Arterial Blood Ionized Calcium Urine WBC (Auto) Coronavirus (PCR) SARS-CoV-2 IgG Ab Crossmatch 06/28/20 06/28/20 06/29/20 16:53 21:10 00:06 WBC RBC Hgb Hct MCV MCH MCHC RDW Lymph % (Auto) Lymph # (Auto) Frio # (Auto) Baso # (Auto) Seg Neutrophils % Seg Neuts % (Manual) Lymphocytes % (Manual) Nucleated RBC % Seg Neutrophils # Seg Neutrophils # Man Lymphocytes # (Manual) Monocytes # (Manual) Eosinophils # (Manual) PT INR APTT D-Dimer Heparin Anti-Xa Level ABG pH POC ABG pCO2 POC ABG pO2 ABG pO2 ABG HCO3 ABG O2 Saturation ABG Base Excess ABG Hemoglobin ABG Oxyhemoglobin ABG Sodium ABG Potassium ABG Chloride ABG Glucose Oxyhemoglobin Carboxyhemoglobin Sodium Potassium Chloride Carbon Dioxide BUN Creatinine Glucose POC Glucose 211 H 195 H 200 H Lactic Acid Calcium Magnesium Ferritin Total Bilirubin Direct Bilirubin AST ALT Alkaline Phosphatase Lactate Dehydrogenase C-Reactive Protein Total Protein Albumin Triglycerides Lipase Arterial Blood Glucose Arterial Blood Ionized Calcium Urine WBC (Auto) Coronavirus (PCR) SARS-CoV-2 IgG Ab Crossmatch 06/29/20 06/29/20 06/29/20 03:11 04:00 04:00 WBC 18.8 H RBC 2.82 L Hgb 10.1 L Hct 28.5 L MCV 101 H MCH 36 H MCHC 36 H RDW 17.5 H Lymph % (Auto) 10.7 L Lymph # (Auto) Frio # (Auto) 1.0 H Baso # (Auto) 0.3 H Seg Neutrophils % 82.2 H Seg Neuts % (Manual) Lymphocytes % (Manual) Nucleated RBC % Seg Neutrophils # 15.5 H Seg Neutrophils # Man Lymphocytes # (Manual) Monocytes # (Manual) Eosinophils # (Manual) PT INR APTT D-Dimer Heparin Anti-Xa Level ABG pH POC ABG pCO2 57.5 H POC ABG pO2 69.1 L ABG pO2 ABG HCO3 ABG O2 Saturation ABG Base Excess ABG Hemoglobin 10.2 L ABG Oxyhemoglobin 92.3 L ABG Sodium 130.7 L ABG Potassium 3.2 L ABG Chloride 93.0 L ABG Glucose 228 H Oxyhemoglobin Carboxyhemoglobin Sodium 134 L Potassium 3.3 L Chloride 89.5 L Carbon Dioxide 40 H BUN Creatinine 0.2 L Glucose 190 H POC Glucose Lactic Acid Calcium Magnesium Ferritin Total Bilirubin Direct Bilirubin AST < 5 L ALT < 5 L Alkaline Phosphatase Lactate Dehydrogenase C-Reactive Protein Total Protein 5.9 L Albumin 2.2 L Triglycerides Lipase Arterial Blood Glucose 228 H Arterial Blood Ionized Calcium Urine WBC (Auto) Coronavirus (PCR) SARS-CoV-2 IgG Ab Crossmatch 06/29/20 06/29/20 06/29/20 05:00 05:23 09:36 WBC RBC Hgb Hct MCV MCH MCHC RDW Lymph % (Auto) Lymph # (Auto) Frio # (Auto) Baso # (Auto) Seg Neutrophils % Seg Neuts % (Manual) Lymphocytes % (Manual) Nucleated RBC % Seg Neutrophils # Seg Neutrophils # Man Lymphocytes # (Manual) Monocytes # (Manual) Eosinophils # (Manual) PT INR APTT D-Dimer Heparin Anti-Xa Level ABG pH POC ABG pCO2 POC ABG pO2 ABG pO2 ABG HCO3 ABG O2 Saturation ABG Base Excess ABG Hemoglobin ABG Oxyhemoglobin ABG Sodium ABG Potassium ABG Chloride ABG Glucose Oxyhemoglobin Carboxyhemoglobin Sodium Potassium Chloride Carbon Dioxide BUN Creatinine Glucose POC Glucose 165 H Lactic Acid Calcium Magnesium Ferritin Total Bilirubin Direct Bilirubin AST ALT Alkaline Phosphatase Lactate Dehydrogenase C-Reactive Protein Total Protein Albumin Triglycerides 1544 H 1799 H Lipase Arterial Blood Glucose Arterial Blood Ionized Calcium Urine WBC (Auto) Coronavirus (PCR) SARS-CoV-2 IgG Ab Crossmatch 06/29/20 06/29/20 06/29/20 09:36 12:02 18:00 WBC RBC Hgb Hct MCV MCH MCHC RDW Lymph % (Auto) Lymph # (Auto) Frio # (Auto) Baso # (Auto) Seg Neutrophils % Seg Neuts % (Manual) Lymphocytes % (Manual) Nucleated RBC % Seg Neutrophils # Seg Neutrophils # Man Lymphocytes # (Manual) Monocytes # (Manual) Eosinophils # (Manual) PT INR APTT D-Dimer Heparin Anti-Xa Level ABG pH POC ABG pCO2 POC ABG pO2 ABG pO2 ABG HCO3 ABG O2 Saturation ABG Base Excess ABG Hemoglobin ABG Oxyhemoglobin ABG Sodium ABG Potassium ABG Chloride ABG Glucose Oxyhemoglobin Carboxyhemoglobin Sodium Potassium Chloride Carbon Dioxide BUN Creatinine Glucose POC Glucose 197 H 187 H Lactic Acid Calcium Magnesium Ferritin Total Bilirubin Direct Bilirubin AST ALT Alkaline Phosphatase Lactate Dehydrogenase C-Reactive Protein Total Protein Albumin Triglycerides Lipase 86 H Arterial Blood Glucose Arterial Blood Ionized Calcium Urine WBC (Auto) Coronavirus (PCR) SARS-CoV-2 IgG Ab Crossmatch 06/29/20 06/30/20 06/30/20 23:33 03:46 05:50 WBC RBC Hgb Hct MCV MCH MCHC RDW Lymph % (Auto) Lymph # (Auto) Frio # (Auto) Baso # (Auto) Seg Neutrophils % Seg Neuts % (Manual) Lymphocytes % (Manual) Nucleated RBC % Seg Neutrophils # Seg Neutrophils # Man Lymphocytes # (Manual) Monocytes # (Manual) Eosinophils # (Manual) PT INR APTT D-Dimer Heparin Anti-Xa Level ABG pH 7.466 H POC ABG pCO2 57.3 H POC ABG pO2 66.1 L ABG pO2 ABG HCO3 ABG O2 Saturation ABG Base Excess ABG Hemoglobin 10.2 L ABG Oxyhemoglobin 92.3 L ABG Sodium 134.4 L ABG Potassium 3.2 L ABG Chloride 94.0 L ABG Glucose 178 H Oxyhemoglobin Carboxyhemoglobin Sodium Potassium Chloride Carbon Dioxide BUN Creatinine Glucose POC Glucose 170 H 170 H Lactic Acid Calcium Magnesium Ferritin Total Bilirubin Direct Bilirubin AST ALT Alkaline Phosphatase Lactate Dehydrogenase C-Reactive Protein Total Protein Albumin Triglycerides Lipase Arterial Blood Glucose 178 H Arterial Blood Ionized Calcium Urine WBC (Auto) Coronavirus (PCR) SARS-CoV-2 IgG Ab Crossmatch 06/30/20 06/30/20 06/30/20 07:00 07:00 12:04 WBC 15.6 H RBC 2.91 L Hgb 9.8 L Hct 29.7 L MCV 102 H MCH 34 H MCHC RDW 17.8 H Lymph % (Auto) Lymph # (Auto) Frio # (Auto) Baso # (Auto) Seg Neutrophils % Seg Neuts % (Manual) Lymphocytes % (Manual) 5.0 L Nucleated RBC % Seg Neutrophils # Seg Neutrophils # Man 14.8 H Lymphocytes # (Manual) 0.8 L Monocytes # (Manual) Eosinophils # (Manual) PT INR APTT D-Dimer Heparin Anti-Xa Level ABG pH POC ABG pCO2 POC ABG pO2 ABG pO2 ABG HCO3 ABG O2 Saturation ABG Base Excess ABG Hemoglobin ABG Oxyhemoglobin ABG Sodium ABG Potassium ABG Chloride ABG Glucose Oxyhemoglobin Carboxyhemoglobin Sodium Potassium Chloride 93.3 L Carbon Dioxide 43 H* BUN Creatinine 0.3 L Glucose 260 H POC Glucose 245 H Lactic Acid Calcium Magnesium Ferritin Total Bilirubin Direct Bilirubin AST ALT Alkaline Phosphatase Lactate Dehydrogenase C-Reactive Protein Total Protein Albumin 2.8 L Triglycerides 452 H Lipase Arterial Blood Glucose Arterial Blood Ionized Calcium Urine WBC (Auto) Coronavirus (PCR) SARS-CoV-2 IgG Ab Crossmatch 06/30/20 07/01/20 07/01/20 17:32 00:02 05:02 WBC RBC Hgb Hct MCV MCH MCHC RDW Lymph % (Auto) Lymph # (Auto) Frio # (Auto) Baso # (Auto) Seg Neutrophils % Seg Neuts % (Manual) Lymphocytes % (Manual) Nucleated RBC % Seg Neutrophils # Seg Neutrophils # Man Lymphocytes # (Manual) Monocytes # (Manual) Eosinophils # (Manual) PT INR APTT D-Dimer Heparin Anti-Xa Level ABG pH POC ABG pCO2 58.1 H POC ABG pO2 ABG pO2 ABG HCO3 ABG O2 Saturation ABG Base Excess ABG Hemoglobin 11.2 L ABG Oxyhemoglobin ABG Sodium 132.7 L ABG Potassium ABG Chloride 92.0 L ABG Glucose 238 H Oxyhemoglobin Carboxyhemoglobin Sodium Potassium Chloride Carbon Dioxide BUN Creatinine Glucose POC Glucose 209 H 208 H Lactic Acid Calcium Magnesium Ferritin Total Bilirubin Direct Bilirubin AST ALT Alkaline Phosphatase Lactate Dehydrogenase C-Reactive Protein Total Protein Albumin Triglycerides Lipase Arterial Blood Glucose 238 H Arterial Blood Ionized Calcium Urine WBC (Auto) Coronavirus (PCR) SARS-CoV-2 IgG Ab Crossmatch 07/01/20 07/01/20 07/01/20 06:16 06:41 06:41 WBC 18.1 H RBC 2.33 L Hgb 7.1 L Hct 21.3 L D MCV MCH MCHC RDW Lymph % (Auto) Lymph # (Auto) Frio # (Auto) Baso # (Auto) Seg Neutrophils % Seg Neuts % (Manual) 82.0 H Lymphocytes % (Manual) 7.0 L Nucleated RBC % 1.0 H Seg Neutrophils # Seg Neutrophils # Man 14.8 H Lymphocytes # (Manual) Monocytes # (Manual) 1.1 H Eosinophils # (Manual) 0.5 H PT INR APTT D-Dimer Heparin Anti-Xa Level < 0.10 L ABG pH POC ABG pCO2 POC ABG pO2 ABG pO2 ABG HCO3 ABG O2 Saturation ABG Base Excess ABG Hemoglobin ABG Oxyhemoglobin ABG Sodium ABG Potassium ABG Chloride ABG Glucose Oxyhemoglobin Carboxyhemoglobin Sodium Potassium Chloride Carbon Dioxide BUN Creatinine Glucose POC Glucose 180 H Lactic Acid Calcium Magnesium Ferritin Total Bilirubin Direct Bilirubin AST ALT Alkaline Phosphatase Lactate Dehydrogenase C-Reactive Protein Total Protein Albumin Triglycerides Lipase Arterial Blood Glucose Arterial Blood Ionized Calcium Urine WBC (Auto) Coronavirus (PCR) SARS-CoV-2 IgG Ab Crossmatch 07/01/20 07/01/20 07/01/20 08:11 12:04 16:16 WBC RBC Hgb Hct MCV MCH MCHC RDW Lymph % (Auto) Lymph # (Auto) Frio # (Auto) Baso # (Auto) Seg Neutrophils % Seg Neuts % (Manual) Lymphocytes % (Manual) Nucleated RBC % Seg Neutrophils # Seg Neutrophils # Man Lymphocytes # (Manual) Monocytes # (Manual) Eosinophils # (Manual) PT INR APTT D-Dimer Heparin Anti-Xa Level 1.02 H ABG pH POC ABG pCO2 POC ABG pO2 ABG pO2 ABG HCO3 ABG O2 Saturation ABG Base Excess ABG Hemoglobin ABG Oxyhemoglobin ABG Sodium ABG Potassium ABG Chloride ABG Glucose Oxyhemoglobin Carboxyhemoglobin Sodium 135 L Potassium 3.0 L Chloride 93.1 L Carbon Dioxide 40 H BUN Creatinine 0.3 L Glucose 140 H POC Glucose 223 H Lactic Acid Calcium Magnesium Ferritin Total Bilirubin Direct Bilirubin AST ALT Alkaline Phosphatase Lactate Dehydrogenase C-Reactive Protein Total Protein Albumin Triglycerides Lipase Arterial Blood Glucose Arterial Blood Ionized Calcium Urine WBC (Auto) Coronavirus (PCR) SARS-CoV-2 IgG Ab Crossmatch 07/01/20 07/01/20 07/02/20 17:09 23:19 00:56 WBC RBC Hgb Hct MCV MCH MCHC RDW Lymph % (Auto) Lymph # (Auto) Frio # (Auto) Baso # (Auto) Seg Neutrophils % Seg Neuts % (Manual) Lymphocytes % (Manual) Nucleated RBC % Seg Neutrophils # Seg Neutrophils # Man Lymphocytes # (Manual) Monocytes # (Manual) Eosinophils # (Manual) PT INR APTT D-Dimer Heparin Anti-Xa Level 0.22 L ABG pH POC ABG pCO2 POC ABG pO2 ABG pO2 ABG HCO3 ABG O2 Saturation ABG Base Excess ABG Hemoglobin ABG Oxyhemoglobin ABG Sodium ABG Potassium ABG Chloride ABG Glucose Oxyhemoglobin Carboxyhemoglobin Sodium Potassium Chloride Carbon Dioxide BUN Creatinine Glucose POC Glucose 233 H 255 H Lactic Acid Calcium Magnesium Ferritin Total Bilirubin Direct Bilirubin AST ALT Alkaline Phosphatase Lactate Dehydrogenase C-Reactive Protein Total Protein Albumin Triglycerides Lipase Arterial Blood Glucose Arterial Blood Ionized Calcium Urine WBC (Auto) Coronavirus (PCR) SARS-CoV-2 IgG Ab Crossmatch 07/02/20 07/02/20 07/02/20 03:51 05:35 11:39 WBC RBC Hgb Hct MCV MCH MCHC RDW Lymph % (Auto) Lymph # (Auto) Frio # (Auto) Baso # (Auto) Seg Neutrophils % Seg Neuts % (Manual) Lymphocytes % (Manual) Nucleated RBC % Seg Neutrophils # Seg Neutrophils # Man Lymphocytes # (Manual) Monocytes # (Manual) Eosinophils # (Manual) PT INR APTT D-Dimer Heparin Anti-Xa Level ABG pH POC ABG pCO2 54.9 H POC ABG pO2 52.1 L ABG pO2 ABG HCO3 ABG O2 Saturation ABG Base Excess ABG Hemoglobin 11.9 L ABG Oxyhemoglobin 82.8 L ABG Sodium 130.2 L ABG Potassium ABG Chloride 92.0 L ABG Glucose 249 H Oxyhemoglobin Carboxyhemoglobin 1.9 H Sodium Potassium Chloride Carbon Dioxide BUN Creatinine Glucose POC Glucose 205 H 235 H Lactic Acid Calcium Magnesium Ferritin Total Bilirubin Direct Bilirubin AST ALT Alkaline Phosphatase Lactate Dehydrogenase C-Reactive Protein Total Protein Albumin Triglycerides Lipase Arterial Blood Glucose 249 H Arterial Blood Ionized Calcium Urine WBC (Auto) Coronavirus (PCR) SARS-CoV-2 IgG Ab Crossmatch 07/02/20 07/02/20 07/02/20 16:08 16:08 17:54 WBC 19.8 H RBC 3.28 L Hgb 10.7 L D Hct 32.7 L D MCV 100 H MCH 33 H MCHC RDW 17.2 H Lymph % (Auto) Lymph # (Auto) Frio # (Auto) Baso # (Auto) Seg Neutrophils % Seg Neuts % (Manual) Lymphocytes % (Manual) Nucleated RBC % Seg Neutrophils # Seg Neutrophils # Man Lymphocytes # (Manual) Monocytes # (Manual) Eosinophils # (Manual) PT INR APTT D-Dimer Heparin Anti-Xa Level ABG pH POC ABG pCO2 POC ABG pO2 ABG pO2 ABG HCO3 ABG O2 Saturation ABG Base Excess ABG Hemoglobin ABG Oxyhemoglobin ABG Sodium ABG Potassium ABG Chloride ABG Glucose Oxyhemoglobin Carboxyhemoglobin Sodium 136 L Potassium Chloride 92.4 L Carbon Dioxide 35 H BUN Creatinine 0.3 L Glucose 203 H POC Glucose 175 H Lactic Acid Calcium Magnesium Ferritin Total Bilirubin Direct Bilirubin AST ALT Alkaline Phosphatase Lactate Dehydrogenase C-Reactive Protein Total Protein Albumin Triglycerides Lipase Arterial Blood Glucose Arterial Blood Ionized Calcium Urine WBC (Auto) Coronavirus (PCR) SARS-CoV-2 IgG Ab Crossmatch 07/02/20 07/03/20 07/03/20 23:46 03:25 05:54 WBC RBC Hgb Hct MCV MCH MCHC RDW Lymph % (Auto) Lymph # (Auto) Frio # (Auto) Baso # (Auto) Seg Neutrophils % Seg Neuts % (Manual) Lymphocytes % (Manual) Nucleated RBC % Seg Neutrophils # Seg Neutrophils # Man Lymphocytes # (Manual) Monocytes # (Manual) Eosinophils # (Manual) PT INR APTT D-Dimer Heparin Anti-Xa Level ABG pH 7.468 H POC ABG pCO2 51.5 H POC ABG pO2 ABG pO2 ABG HCO3 ABG O2 Saturation ABG Base Excess ABG Hemoglobin ABG Oxyhemoglobin ABG Sodium 130.2 L ABG Potassium ABG Chloride 91.0 L ABG Glucose 210 H Oxyhemoglobin Carboxyhemoglobin 1.6 H Sodium Potassium Chloride Carbon Dioxide BUN Creatinine Glucose POC Glucose 173 H 125 H Lactic Acid Calcium Magnesium Ferritin Total Bilirubin Direct Bilirubin AST ALT Alkaline Phosphatase Lactate Dehydrogenase C-Reactive Protein Total Protein Albumin Triglycerides Lipase Arterial Blood Glucose 210 H Arterial Blood Ionized Calcium Urine WBC (Auto) Coronavirus (PCR) SARS-CoV-2 IgG Ab Crossmatch 07/03/20 07/03/20 07/03/20 11:43 12:20 12:20 WBC 16.5 H RBC 3.13 L Hgb 10.4 L Hct 31.8 L MCV 102 H MCH 33 H MCHC RDW 17.2 H Lymph % (Auto) Lymph # (Auto) Frio # (Auto) Baso # (Auto) Seg Neutrophils % Seg Neuts % (Manual) Lymphocytes % (Manual) Nucleated RBC % Seg Neutrophils # Seg Neutrophils # Man Lymphocytes # (Manual) Monocytes # (Manual) Eosinophils # (Manual) PT INR APTT D-Dimer Heparin Anti-Xa Level ABG pH POC ABG pCO2 POC ABG pO2 ABG pO2 ABG HCO3 ABG O2 Saturation ABG Base Excess ABG Hemoglobin ABG Oxyhemoglobin ABG Sodium ABG Potassium ABG Chloride ABG Glucose Oxyhemoglobin Carboxyhemoglobin Sodium 132 L Potassium Chloride 88.5 L Carbon Dioxide 37 H BUN Creatinine 0.3 L Glucose 230 H POC Glucose 223 H Lactic Acid Calcium Magnesium Ferritin Total Bilirubin Direct Bilirubin AST ALT Alkaline Phosphatase Lactate Dehydrogenase C-Reactive Protein Total Protein Albumin Triglycerides Lipase Arterial Blood Glucose Arterial Blood Ionized Calcium Urine WBC (Auto) Coronavirus (PCR) SARS-CoV-2 IgG Ab Crossmatch 07/03/20 17:24 WBC RBC Hgb Hct MCV MCH MCHC RDW Lymph % (Auto) Lymph # (Auto) Frio # (Auto) Baso # (Auto) Seg Neutrophils % Seg Neuts % (Manual) Lymphocytes % (Manual) Nucleated RBC % Seg Neutrophils # Seg Neutrophils # Man Lymphocytes # (Manual) Monocytes # (Manual) Eosinophils # (Manual) PT INR APTT D-Dimer Heparin Anti-Xa Level ABG pH POC ABG pCO2 POC ABG pO2 ABG pO2 ABG HCO3 ABG O2 Saturation ABG Base Excess ABG Hemoglobin ABG Oxyhemoglobin ABG Sodium ABG Potassium ABG Chloride ABG Glucose Oxyhemoglobin Carboxyhemoglobin Sodium Potassium Chloride Carbon Dioxide BUN Creatinine Glucose POC Glucose 163 H Lactic Acid Calcium Magnesium Ferritin Total Bilirubin Direct Bilirubin AST ALT Alkaline Phosphatase Lactate Dehydrogenase C-Reactive Protein Total Protein Albumin Triglycerides Lipase Arterial Blood Glucose Arterial Blood Ionized Calcium Urine WBC (Auto) Coronavirus (PCR) SARS-CoV-2 IgG Ab Crossmatch Chest x-ray: image reviewed Allied health notes reviewed: nursing
--- NOTE | 2020-07-03 18:38 | Progress Note ---
Assessment and Plan - Acute hypoxemic respiratory failure; Patient intubated and on vent support --Severe COVID-19 bilateral pneumonia Coronavirus protocol: IV steroid therapy, completed remdesivir, isolation precautions, contact precautions, prone positioning while in bed, pulmonary toilet. ID following SARS CoV-2 IgG positive patient is NOT a candidate for COVID convalescent plasma Covid test came negative on 06/30/20 --Severe sepsis/septic shock, due to COVID 19 PNA cont pressors as needed -- Acute kidney injury (SEN) , likely vasomotor nephropathy Resolved, IV fluids, avoid nephrotoxins --Acute on chronic anemia Guaiac test positive GI evaluation PPIs Continue to monitor -- Elevated liver function tests Suspected secondary to alcoholic liver disease. Supportive care, alcohol cessation, patient counseled. --Colonic pseudoobstruction likely from acute on chronic illness GI evaluation -recommend stool softeners Serial abdominal x-rays Monitor electrolytes and replete --History of alcohol dependence, status post CIWA protocol along with thiamine folic acid and multivitamin --right pneumothorax, s/p right chest tube placed on 06/21/20 Patient will need chest tube until patient is extubated -- DVT prophylaxis On therapeutic Lovenox The high probability of a clinically significant, sudden or life threatening deterioration of the [respiratory] system(s) required my full and direct attention, intervention and personal management. The aggregate critical care time was [31] minutes. This time is in addition to time spent performing reported procedures but includes the following: [x] Data Review and interpretation [x] Patient assessment and monitoring of vital signs [x] Documentation [x] Medication orders and management Brief History: 50 YO Male with Obesity, ETOH Dependence presents to ED for evaluation for shortness of breath, generalized weakness, fatigue, malaise, body aches, decreased exercise tolerance over the past 5 days. EMS was notified and upon arrival the patient was found to be in distress with a pulse oximetry of 76% on room air as well as fever to 103 F. In the ER chest x-ray and was found to have bilateral pneumonia. Patient admitted to medical floor and initiated on pneumonia protocol as well as COVID-19 protocol. Patient reports being diagnosed with coronavirus 2 days ago. 05/10- 05/17: follow inflammatory markers, consulted ID/pulmonary. patient on high flow O2 05/18/20; patient feels slightly better still hypoxic, requiring continuous high flow oxygen and BiPAP Respiratory team trying to wean 05/19/20; patient is severely hypoxemic requiring continuous BiPAP today, complains of generalized weakness Trying to wean off high flow oxygen, patient is in isolation 05/20/2020; patient remains on high flow oxygen/BiPAP/100% nonrebreather. Still is hypoxemic Has sinus tachycardia patient in mild distress Wean off high flow oxygen as tolerated, pulmonary critical following 05/21/20; patient is critically ill, on continuous BiPAP remains hypoxemic in m ild distress. Patient has severe Covid Pneumonia with persistent hypoxemia and poor prognosis. 05/22/2020: Patient was intubated last night because of persistent hypoxemia. 05/23-06/15: Remains on ventilatory support, unable to wean off from the vent. 06/16/2020. Patient currently on mechanical ventilation with AC mode rate 30, tidal volume 500, FiO2 70% and PEEP of 16. Continue anticoagulation with Lovenox 110 milligrams subcu every 12 hours. Wean sedation of fentanyl/Versed as needed. Currently with IV steroids of Solu-Medrol 40 mg IV every 12 hours. Patient will likely need tracheostomy per pulmonary recommendations. Continue pressors to maintain MAP > 65. 06/17/2020. Patient currently on mechanical ventilation with AC mode rate 30, tidal volume 500, FiO2 65% and PEEP of 16. Continue anticoagulation with Lovenox 110 milligrams subcu every 12 hours. Wean sedation of fentanyl/Versed as needed. Currently with IV steroids of Solu-Medrol 40 mg IV every 12 hours. Patient will likely need tracheostomy per pulmonary recommendations. 06/18/2020. Patient currently on mechanical ventilation with AC mode rate 30, tidal volume 500, FiO2 70% and PEEP of 16. Continue Lovenox for anticoagulation and fentanyl/Versed for sedation. Wean steroids per pulmonary. CIWA protocol initiated for history of EtOH dependence 06/19/2020. Patient currently on mechanical ventilation with AC mode rate 30, tidal volume 500, FiO2 60% and PEEP of 16. Wean FiO2 as tolerated per protocol. Continue Lovenox for anticoagulation and fentanyl/Versed for sedation. Wean steroids per pulmonary. CIWA protocol initiated for history of EtOH dependence 06/20/2020. Patient currently on mechanical ventilation with AC mode rate 30, tidal volume 500, FiO2 60% and PEEP of 16. Wean FiO2 as tolerated, SBT per protocol. Continue Lovenox for anticoagulation and fentanyl/Versed for sedation. Wean steroids per pulmonary. Continue pressors to maintain MAP > 65 mmHg. Patient remains on ETT. Consider tracheostomy placement once oxygenation is better per pulmonary. CIWA protocol initiated for history of EtOH dependence. 06/21/2020. Patient with a small apical pneumothorax discovered yesterday. General surgery consulted and consider placing chest tube. Follow-up serial chest x-ray patient currently on mechanical ventilation with AC mode rate 30, tidal volume 500, FiO2 60% and PEEP of 16. Wean FiO2 as tolerated, SBT per protocol. Continue Lovenox for anticoagulation and fentanyl/Versed for sedation. Wean steroids per pulmonary. Continue pressors to maintain MAP > 65 mmHg. Patient remains on ETT. Consider tracheostomy placement once oxygenation is better per pulmonary. CIWA protocol initiated for history of EtOH dependence. 06/22. Status post right chest tube placement yesterday. Remains mechanically ventilated on pressors. Examination today shows slightly distended abdomen. KUB ordered. Awaiting stool guaiac. Plan to get a GI evaluation. 06/23. Has colonic distention on the x-ray. Discussed with GI-advised stool softeners for now and close monitoring. No indication for colonic decompression at this time. Guaiac test is positive. No emergent indication for endoscopy at this point as per GI. Continue to monitor hemoglobin. 06/24. Remains intubated. On pressors. GI following for positive guaiac stool and anemia, and colonic distention. 06/25. Repeat abdominal xray ordered. Remains on mechanical ventilation. 06/26. Abdominal xray - resolved colonic distension. Mechanically ventilated. 06/27. Plan for trach and PEG. 06/28: Awaiting trach and Peg. Some Bm REPORTED, will continue to monitor 06/29: Resume care, patient remains on ventilator support, waiting on trach and PEG placement. BM reported by the RN, continue to monitor. 06/30: Unable to wean off from vent, patient will need trach and PEG. Continue supportive care, tolerating tube feed. Monitor CBC and BMP 07/01: Continue mechanical ventilation, tube feeding as tolerated. Sedation as needed per mechanical ventilation protocol. Waiting on trach and PEG placement. 07/02: Continue current management, tube feeding, monitor CBC and BMP. Need trach and PEG-waiting on scheduling. Pulmonary critical care following. 07/03: wean off vent as tolerated. follow clinically. need trach and PEG Subjective Date of service: 07/03/20 Principal diagnosis: Ac hypoxemic resp failure; COVID-19; Severe Sepsis; Shaggy PNA; Alcohol Abuse Interval history: Patient seen and examined Patient remains on mechanical ventilation Chest tube in place Tolerating tube feeding Objective - Exam Narrative Exam: General appearance: Present: no distress, obese, intubated - EENT Eyes: Present: PERRL ENT: Et tube in place - Neck Neck: Present: supple, - Respiratory Respiratory effort: on mechanical ventilation Respiratory: bilateral: diminished, rhonchi, CT tube in place - Cardiovascular Heart Sounds: Present: S1 & S2. Absent: rub, click - Extremities Extremities: pulses symmetrical, No edema Peripheral Pulses: within normal limits - Abdominal General gastrointestinal: Present: soft, non-tender, mild distended, normal bowel sounds Male genitourinary: Present: normal - Integumentary Integumentary: Present: clear, warm, dry - Musculoskeletal Musculoskeletal: generalized weakness - Psychiatric Psychiatric: Unable to assess - Neurologic Neurologic: Intubated - Constitutional Vitals: Vital Signs - 12hr 07/03/20 07/03/20 07/03/20 06:45 07:01 07:15 Temperature Pulse Rate 121 H 108 H 120 H Pulse Rate [ From Monitor] Respiratory 27 H 15 30 H Rate Blood Pressure 125/84 97/56 97/56 O2 Sat by Pulse 98 94 97 Oximetry 07/03/20 07/03/20 07/03/20 07:30 07:45 08:00 Temperature 99.8 F H Pulse Rate 121 H 127 H Pulse Rate [ 123 H From Monitor] Respiratory 30 H 35 H 30 H Rate Blood Pressure 121/85 O2 Sat by Pulse 98 97 93 Oximetry 07/03/20 07/03/20 07/03/20 08:01 08:05 08:15 Temperature Pulse Rate 123 H 128 H 127 H Pulse Rate [ From Monitor] Respiratory 26 H 31 H Rate Blood Pressure 151/85 151/85 151/85 O2 Sat by Pulse 93 97 97 Oximetry 07/03/20 07/03/20 07/03/20 08:30 08:45 09:01 Temperature Pulse Rate 127 H 138 H 156 H Pulse Rate [ From Monitor] Respiratory 30 H 32 H 38 H Rate Blood Pressure 132/93 132/93 151/85 O2 Sat by Pulse 93 96 89 Oximetry 07/03/20 07/03/20 07/03/20 09:03 09:15 09:31 Temperature Pulse Rate 156 H 129 H 136 H Pulse Rate [ From Monitor] Respiratory 38 H 38 H Rate Blood Pressure 151/86 127/74 118/81 O2 Sat by Pulse 97 88 Oximetry 07/03/20 07/03/20 07/03/20 09:45 10:00 10:15 Temperature Pulse Rate 137 H 135 H 136 H Pulse Rate [ From Monitor] Respiratory 40 H 33 H 35 H Rate Blood Pressure 115/84 118/80 118/80 O2 Sat by Pulse 92 93 96 Oximetry 07/03/20 07/03/20 07/03/20 10:30 10:45 11:00 Temperature Pulse Rate 136 H 129 H 131 H Pulse Rate [ From Monitor] Respiratory 31 H 28 H 30 H Rate Blood Pressure 117/73 117/73 110/67 O2 Sat by Pulse 94 98 94 Oximetry 07/03/20 07/03/20 07/03/20 11:15 11:31 11:45 Temperature Pulse Rate 133 H 136 H 140 H Pulse Rate [ From Monitor] Respiratory 34 H 31 H 42 H Rate Blood Pressure 123/75 135/93 135/93 O2 Sat by Pulse 96 89 93 Oximetry 07/03/20 07/03/20 07/03/20 12:00 12:01 12:15 Temperature 99.7 F H Pulse Rate 115 H 108 H Pulse Rate [ From Monitor] Respiratory 30 H 41 H 22 Rate Blood Pressure 106/88 106/88 O2 Sat by Pulse 93 95 97 Oximetry 07/03/20 07/03/20 07/03/20 12:30 12:38 12:45 Temperature Pulse Rate 117 H 133 H 133 H Pulse Rate [ From Monitor] Respiratory 20 30 H Rate Blood Pressure 101/59 101/59 101/59 O2 Sat by Pulse 97 98 99 Oximetry 07/03/20 07/03/20 07/03/20 13:01 13:15 13:30 Temperature Pulse Rate 123 H 123 H 122 H Pulse Rate [ From Monitor] Respiratory 19 19 24 Rate Blood Pressure 107/63 123/74 130/78 O2 Sat by Pulse 94 91 92 Oximetry 07/03/20 07/03/20 07/03/20 13:45 14:00 14:15 Temperature Pulse Rate 105 H 115 H 103 H Pulse Rate [ From Monitor] Respiratory 18 31 H 18 Rate Blood Pressure 130/78 105/75 105/75 O2 Sat by Pulse 97 94 99 Oximetry 07/03/20 07/03/20 07/03/20 14:30 14:45 15:00 Temperature Pulse Rate 92 H 88 86 Pulse Rate [ From Monitor] Respiratory 30 H 30 H 30 H Rate Blood Pressure 67/39 69/43 82/50 O2 Sat by Pulse 98 98 100 Oximetry 07/03/20 07/03/20 07/03/20 15:15 15:30 15:45 Temperature Pulse Rate 84 83 Pulse Rate [ From Monitor] Respiratory 30 H 30 H 27 H Rate Blood Pressure 86/56 84/61 84/61 O2 Sat by Pulse 100 97 Oximetry 07/03/20 07/03/20 07/03/20 16:00 16:15 16:22 Temperature Pulse Rate 83 86 85 Pulse Rate [ From Monitor] Respiratory 30 H 30 H Rate Blood Pressure 98/63 102/72 106/69 O2 Sat by Pulse 98 99 Oximetry 07/03/20 07/03/20 16:30 16:45 Temperature Pulse Rate 85 86 Pulse Rate [ From Monitor] Respiratory 30 H 30 H Rate Blood Pressure 106/69 105/69 O2 Sat by Pulse 99 99 Oximetry - Labs CBC & Chem 7: 07/04/20 04:00 07/04/20 04:00 Labs: Abnormal lab results 07/02/20 07/03/20 07/03/20 Range/Units 23:46 03:25 05:54 WBC (4.5-11.0) K/mm3 RBC (3.65-5.03) M/mm3 Hgb (11.8-15.2) gm/dl Hct (35.5-45.6) % MCV (84-94) fl MCH (28-32) pg RDW (13.2-15.2) % ABG pH 7.468 H (7.320-7.450) POC ABG pCO2 51.5 H (32.0-48.0) mmHg ABG Sodium 130.2 L (136.0-145.0) mmol/L ABG Chloride 91.0 L (98-107) mmol/L ABG Glucose 210 H (65-95) mg/dL Carboxyhemoglobin 1.6 H (0.5-1.5) Sodium (137-145) mmol/L Chloride (98-107) mmol/L Carbon Dioxide (22-30) mmol/L Creatinine (0.8-1.3) mg/dL Glucose (75-100) mg/dL POC Glucose 173 H 125 H (70-105) mg/dL Arterial Blood Glucose 210 H (65-95) mg/dL 07/03/20 07/03/20 07/03/20 Range/Units 11:43 12:20 12:20 WBC 16.5 H (4.5-11.0) K/mm3 RBC 3.13 L (3.65-5.03) M/mm3 Hgb 10.4 L (11.8-15.2) gm/dl Hct 31.8 L (35.5-45.6) % MCV 102 H (84-94) fl MCH 33 H (28-32) pg RDW 17.2 H (13.2-15.2) % ABG pH (7.320-7.450) POC ABG pCO2 (32.0-48.0) mmHg ABG Sodium (136.0-145.0) mmol/L ABG Chloride (98-107) mmol/L ABG Glucose (65-95) mg/dL Carboxyhemoglobin (0.5-1.5) Sodium 132 L (137-145) mmol/L Chloride 88.5 L (98-107) mmol/L Carbon Dioxide 37 H (22-30) mmol/L Creatinine 0.3 L (0.8-1.3) mg/dL Glucose 230 H (75-100) mg/dL POC Glucose 223 H (70-105) mg/dL Arterial Blood Glucose (65-95) mg/dL 07/03/20 Range/Units 17:24 WBC (4.5-11.0) K/mm3 RBC (3.65-5.03) M/mm3 Hgb (11.8-15.2) gm/dl Hct (35.5-45.6) % MCV (84-94) fl MCH (28-32) pg RDW (13.2-15.2) % ABG pH (7.320-7.450) POC ABG pCO2 (32.0-48.0) mmHg ABG Sodium (136.0-145.0) mmol/L ABG Chloride (98-107) mmol/L ABG Glucose (65-95) mg/dL Carboxyhemoglobin (0.5-1.5) Sodium (137-145) mmol/L Chloride (98-107) mmol/L Carbon Dioxide (22-30) mmol/L Creatinine (0.8-1.3) mg/dL Glucose (75-100) mg/dL POC Glucose 163 H (70-105) mg/dL Arterial Blood Glucose (65-95) mg/dL
[2020-07-03] MEDS: INSULIN GLARGINE 100 UNITS/ML SUB-Q SCH (22:46)
[2020-07-03] MEDS: ENOXAPARIN 120 MG/0.8 ML INJ SUB-Q SCH (23:42)
[2020-07-04] MEDS: LORazepam 2 MG/ML VIAL IV PRN ×3 (01:21→20:46)
[2020-07-04] MEDS: INSULIN LISPRO 100 UNIT/ML VIAL 3 mL SUB-Q SCH ×4 (01:21→18:31)
[2020-07-04] MEDS: MIDAZOLAM 100 MG in SODIUM CHLORIDE 0.9% 80 ML IV SCH (01:57)
[2020-07-04] MEDS: fentaNYL DRIP Premix 2,000 MCG/100 ML BAG IV SCH ×3 (03:09→21:45)
[2020-07-04] MEDS: PHENobarbital 20 MG/5 ML ORAL LIQD FEEDTUBE SCH ×2 (03:55→06:45)
[2020-07-04 05:12] LABS: Basophils % (Auto) 0.1 % (0.0-1.8); Eosinophils % (Auto) 0.1 % (0.0-4.3); Hematocrit 29.2 % (35.5-45.6); Hemoglobin 9.5 gm/dl (11.8-15.2); Lymphocytes # (Auto) 1.3 K/mm3 (1.2-5.4); Lymphocytes % (Auto) 8.4 % (13.4-35.0); Mean Corpuscular HGB Conc 33 % (32-34); Mean Corpuscular Volume 100 fl (84-94); Monocytes # (Auto) 1.1 K/mm3 (0.0-0.8); Monocytes % (Auto) 7.2 % (0.0-7.3); Platelet Count 293 K/mm3 (140-440); Red Blood Count 2.91 M/mm3 (3.65-5.03); Red Cell Distribution Width 16.7 % (13.2-15.2)
[2020-07-04 05:35] LABS: Blood Urea Nitrogen 14 mg/dL (9-20); Calcium 8.9 mg/dL (8.4-10.2); Hemolysis Index 5
[2020-07-04 06:04] LABS: BUN/Creatinine Ratio 47
[2020-07-04] MEDS: methylPREDNISolone Sod Succinate 40 MG/1 ML INJ IV SCH ×2 (06:28→18:30)
[2020-07-04] MEDS: NORepinephrine/NS 4 MG-250 ML 4 MG/250 ML BAG IV SCH (07:12)
[2020-07-04] MEDS: QUEtiapine 100 MG TAB PO SCH ×3 (07:59→19:33)
[2020-07-04] MEDS: QUEtiapine 200 MG TAB PO SCH ×3 (07:59→19:33)
[2020-07-04] MEDS: MIDODRINE 5 MG TAB PO SCH ×3 (07:59→16:01)
--- NOTE | 2020-07-04 09:12 | XRay Report ---
CHEST 1 VIEW INDICATION: chest pain COMPARISON: 07/03/2020 FINDINGS: SUPPORT DEVICES: Endotracheal tubes in good position. Nasogastric tube has tip in stomach. PICC line has tip in superior vena cava. Right chest tubes in place HEART / MEDIASTINUM: No significant abnormality. LUNGS / PLEURA: Diffuse pulmonary process present unchanged from previous exam. No pneumothorax. ADDITIONAL FINDINGS: IMPRESSION: 1. No interval change as compared to previous exam Signer Name: Lam Franklin MD Signed: 07/04/2020 9:08 AM Workstation Name: [id number]
[2020-07-04] MEDS: DOCUSATE SODIUM 100 MG/10 ML ORAL LIQD PO SCH ×2 (10:00→21:47)
[2020-07-04] MEDS: SENNOSIDES 8.6 MG TAB PO SCH ×2 (10:00→21:47)
[2020-07-04] MEDS: LANSOPRAZOLE 30 MG SOLUTAB FEEDTUBE SCH (10:01)
[2020-07-04] MEDS: FOLIC ACID 1 MG TAB PO SCH (10:01)
[2020-07-04] MEDS: ENOXAPARIN 120 MG/0.8 ML INJ SUB-Q SCH ×2 (10:01→21:48)
--- NOTE | 2020-07-04 12:09 | Event Note ---
Date: 07/04/20 Saw Pt this morning after receiving a call at midnight that his chest tube was malfunctioning. The report was that the orange ball in the pleurovac that indicates that suction is being applied to the vac was not floating, and that there was an air leak in the system. Upon inspection this morning, the orange ball is floating appropriately and there is on evidence of air leak. The chest xray from this morning shows no pneumothorax and he is tolerating his ventilator without difficulty. He has no sub-q emphysema. No intervention is indicated.
--- NOTE | 2020-07-04 13:56 | Progress Note ---
Assessment and Plan - Acute hypoxemic respiratory failure; Patient intubated and on vent support --Severe COVID-19 bilateral pneumonia Coronavirus protocol: IV steroid therapy, completed remdesivir, isolation precautions, contact precautions, prone positioning while in bed, pulmonary toilet. ID following SARS CoV-2 IgG positive patient is NOT a candidate for COVID convalescent plasma Covid test came negative on 06/30/20 --Severe sepsis/septic shock, due to COVID 19 PNA cont pressors as needed -- Acute kidney injury (SEN) , likely vasomotor nephropathy Resolved, IV fluids, avoid nephrotoxins --Acute on chronic anemia Guaiac test positive GI evaluation PPIs Continue to monitor -- Elevated liver function tests Suspected secondary to alcoholic liver disease. Supportive care, alcohol cessation, patient counseled. --Colonic pseudoobstruction likely from acute on chronic illness GI evaluation -recommend stool softeners Serial abdominal x-rays Monitor electrolytes and replete --History of alcohol dependence, status post CIWA protocol along with thiamine folic acid and multivitamin --right pneumothorax, s/p right chest tube placed on 06/21/20 Patient will need chest tube until patient is extubated -- DVT prophylaxis On therapeutic Lovenox The high probability of a clinically significant, sudden or life threatening deterioration of the [respiratory] system(s) required my full and direct attention, intervention and personal management. The aggregate critical care time was [31] minutes. This time is in addition to time spent performing reported procedures but includes the following: [x] Data Review and interpretation [x] Patient assessment and monitoring of vital signs [x] Documentation [x] Medication orders and management Brief History: 50 YO Male with Obesity, ETOH Dependence presents to ED for evaluation for shortness of breath, generalized weakness, fatigue, malaise, body aches, decreased exercise tolerance over the past 5 days. EMS was notified and upon arrival the patient was found to be in distress with a pulse oximetry of 76% on room air as well as fever to 103 F. In the ER chest x-ray and was found to have bilateral pneumonia. Patient admitted to medical floor and initiated on pneumonia protocol as well as COVID-19 protocol. Patient reports being diagnosed with coronavirus 2 days ago before admission. 05/10- 05/17: follow inflammatory markers, consulted ID/pulmonary. patient on high flow O2 05/18/20; patient feels slightly better still hypoxic, requiring continuous high flow oxygen and BiPAP Respiratory team trying to wean 05/19/20; patient is severely hypoxemic requiring continuous BiPAP today, complains of generalized weakness Trying to wean off high flow oxygen, patient is in isolation 05/20/2020; patient remains on high flow oxygen/BiPAP/100% nonrebreather. Still is hypoxemic Has sinus tachycardia patient in mild distress Wean off high flow oxygen as tolerated, pulmonary critical following 05/21/20; patient is critically ill, on continuous BiPAP remains hypoxemic in mild distress. Patient has severe Covid Pneumonia with persistent hypoxemia and poor prognosis. 05/22/2020: Patient was intubated last night because of persistent hypoxemia. 05/23-06/15: Remains on ventilatory support, unable to wean off from the vent. 06/16/2020. Patient currently on mechanical ventilation with AC mode rate 30, tidal volume 500, FiO2 70% and PEEP of 16. Continue anticoagulation with Lovenox 110 milligrams subcu every 12 hours. Wean sedation of fentanyl/Versed as needed. Currently with IV steroids of Solu-Medrol 40 mg IV every 12 hours. Patient will likely need tracheostomy per pulmonary recommendations. Continue pressors to maintain MAP > 65. 06/17/2020. Patient currently on mechanical ventilation with AC mode rate 30, tidal volume 500, FiO2 65% and PEEP of 16. Continue anticoagulation with Lovenox 110 milligrams subcu every 12 hours. Wean sedation of fentanyl/Versed as needed. Currently with IV steroids of Solu-Medrol 40 mg IV every 12 hours. Patient will likely need tracheostomy per pulmonary recommendations. 06/18/2020. Patient currently on mechanical ventilation with AC mode rate 30, tidal volume 500, FiO2 70% and PEEP of 16. Continue Lovenox for anticoagulation and fentanyl/Versed for sedation. Wean steroids per pulmonary. CIWA protocol initiated for history of EtOH dependence 06/19/2020. Patient currently on mechanical ventilation with AC mode rate 30, tidal volume 500, FiO2 60% and PEEP of 16. Wean FiO2 as tolerated per protocol. Continue Lovenox for anticoagulation and fentanyl/Versed for sedation. Wean steroids per pulmonary. CIWA protocol initiated for history of EtOH dependence 06/20/2020. Patient currently on mechanical ventilation with AC mode rate 30, tidal volume 500, FiO2 60% and PEEP of 16. Wean FiO2 as tolerated, SBT per protocol. Continue Lovenox for anticoagulation and fentanyl/Versed for sedation. Wean steroids per pulmonary. Continue pressors to maintain MAP > 65 mmHg. Patient remains on ETT. Consider tracheostomy placement once oxygenation is better per pulmonary. CIWA protocol initiated for history of EtOH dependence. 06/21/2020. Patient with a small apical pneumothorax discovered yesterday. General surgery consulted and consider placing chest tube. Follow-up serial chest x-ray patient currently on mechanical ventilation with AC mode rate 30, tidal volume 500, FiO2 60% and PEEP of 16. Wean FiO2 as tolerated, SBT per pro tocol. Continue Lovenox for anticoagulation and fentanyl/Versed for sedation. Wean steroids per pulmonary. Continue pressors to maintain MAP > 65 mmHg. Patient remains on ETT. Consider tracheostomy placement once oxygenation is better per pulmonary. CIWA protocol initiated for history of EtOH dependence. 06/22. Status post right chest tube placement yesterday. Remains mechanically ventilated on pressors. Examination today shows slightly distended abdomen. KUB ordered. Awaiting stool guaiac. Plan to get a GI evaluation. 06/23. Has colonic distention on the x-ray. Discussed with GI-advised stool softeners for now and close monitoring. No indication for colonic decompression at this time. Guaiac test is positive. No emergent indication for endoscopy at this point as per GI. Continue to monitor hemoglobin. 06/24. Remains intubated. On pressors. GI following for positive guaiac stool and anemia, and colonic distention. 06/25. Repeat abdominal xray ordered. Remains on mechanical ventilation. 06/26. Abdominal xray - resolved colonic distension. Mechanically ventilated. 06/27. Plan for trach and PEG. 06/28: Awaiting trach and Peg. Some Bm REPORTED, will continue to monitor 06/29: Resume care, patient remains on ventilator support, waiting on trach and PEG placement. BM reported by the RN, continue to monitor. 06/30: Unable to wean off from vent, patient will need trach and PEG. Continue supportive care, tolerating tube feed. Monitor CBC and BMP 07/01: Continue mechanical ventilation, tube feeding as tolerated. Sedation as needed per mechanical ventilation protocol. Waiting on trach and PEG placement. 07/02: Continue current management, tube feeding, monitor CBC and BMP. Need trach and PEG-waiting on scheduling. Pulmonary critical care following. 07/03: wean off vent as tolerated. follow clinically. need trach and PEG 07/04: unable to wean. CT head ordered to assess for any changes but too unstable to do the test. need trach and PEG. Subjective Date of service: 07/04/20 Principal diagnosis: Ac hypoxemic resp failure; COVID-19; Severe Sepsis; Shaggy PNA; Alcohol Abuse Interval history: Patient seen and examined Patient remains on mechanical ventilation Chest tube in place, alert Tolerating tube feeding Objective - Exam Narrative Exam: General appearance: Present: no distress, obese, intubated, alert - EENT Eyes: Present: PERRL ENT: Et tube in place - Neck Neck: Present: supple, - Respiratory Respiratory effort: on mechanical ventilation Respiratory: bilateral: diminished, rhonchi, CT tube in place - Cardiovascular Heart Sounds: Present: S1 & S2. Absent: rub, click - Extremities Extremities: pulses symmetrical, No edema Peripheral Pulses: within normal limits - Abdominal General gastrointestinal: Present: soft, non-tender, mild distended, normal bowel sounds Male genitourinary: Present: normal - Integumentary Integumentary: Present: clear, warm, dry - Musculoskeletal Musculoskeletal: generalized weakness - Psychiatric Psychiatric: Unable to assess - Neurologic Neurologic: Intubated but alert - Constitutional Vitals: Vital Signs - 12hr 07/04/20 07/04/20 07/04/20 02:01 02:15 02:31 Temperature Pulse Rate 138 H 141 H 133 H Pulse Rate [ From Monitor] Respiratory 31 H 27 H 29 H Rate Blood Pressure 134/88 134/88 138/87 O2 Sat by Pulse 100 100 96 Oximetry 07/04/20 07/04/20 07/04/20 02:45 03:00 03:15 Temperature Pulse Rate 128 H 133 H 125 H Pulse Rate [ From Monitor] Respiratory 27 H 33 H 24 Rate Blood Pressure 138/87 141/93 141/93 O2 Sat by Pulse 100 98 100 Oximetry 07/04/20 07/04/20 07/04/20 03:31 03:45 04:00 Temperature 98.4 F Pulse Rate 114 H 101 H 93 H Pulse Rate [ From Monitor] Respiratory 15 14 30 H Rate Blood Pressure 94/72 94/72 O2 Sat by Pulse 99 100 97 Oximetry 07/04/20 07/04/20 07/04/20 04:01 04:15 04:30 Temperature Pulse Rate 93 H 91 H 95 H Pulse Rate [ From Monitor] Respiratory 14 16 16 Rate Blood Pressure 92/43 92/43 102/66 O2 Sat by Pulse 99 100 95 Oximetry 07/04/20 07/04/20 07/04/20 04:45 04:46 05:00 Temperature Pulse Rate 96 H 97 H 93 H Pulse Rate [ From Monitor] Respiratory 16 15 Rate Blood Pressure 102/66 103/60 98/65 O2 Sat by Pulse 92 91 89 Oximetry 07/04/20 07/04/20 07/04/20 05:15 05:25 05:30 Temperature Pulse Rate 92 H 89 99 H Pulse Rate [ From Monitor] Respiratory 14 30 H 26 H Rate Blood Pressure 93/64 92/59 O2 Sat by Pulse 92 97 98 Oximetry 07/04/20 07/04/20 07/04/20 05:45 06:00 06:15 Temperature Pulse Rate 93 H 90 89 Pulse Rate [ From Monitor] Respiratory 16 15 14 Rate Blood Pressure 101/61 106/67 106/67 O2 Sat by Pulse 88 95 96 Oximetry 07/04/20 07/04/20 07/04/20 06:30 06:45 07:00 Temperature Pulse Rate 58 L 89 87 Pulse Rate [ From Monitor] Respiratory 16 13 12 Rate Blood Pressure 116/79 116/79 123/70 O2 Sat by Pulse 96 98 95 Oximetry 07/04/20 07/04/20 07/04/20 07:15 07:31 07:45 Temperature Pulse Rate 82 84 82 Pulse Rate [ From Monitor] Respiratory 11 L 12 13 Rate Blood Pressure 123/70 119/80 120/79 O2 Sat by Pulse 98 95 99 Oximetry 07/04/20 07/04/20 07/04/20 08:00 08:16 08:30 Temperature Pulse Rate 82 88 91 H Pulse Rate [ 88 From Monitor] Respiratory 14 13 14 Rate Blood Pressure 125/82 92/53 95/57 O2 Sat by Pulse 98 97 92 Oximetry 07/04/20 07/04/20 07/04/20 08:45 09:00 09:16 Temperature Pulse Rate 123 H 124 H 136 H Pulse Rate [ From Monitor] Respiratory 19 26 H 28 H Rate Blood Pressure 130/71 135/77 133/78 O2 Sat by Pulse 93 97 93 Oximetry 07/04/20 07/04/20 07/04/20 09:30 09:46 10:00 Temperature Pulse Rate 152 H 142 H 144 H Pulse Rate [ From Monitor] Respiratory 34 H 29 H 36 H Rate Blood Pressure 121/96 115/88 122/80 O2 Sat by Pulse 99 89 89 Oximetry 07/04/20 07/04/20 07/04/20 10:15 10:30 10:46 Temperature Pulse Rate 140 H 137 H 133 H Pulse Rate [ From Monitor] Respiratory 35 H 33 H 25 H Rate Blood Pressure 135/88 135/88 154/129 O2 Sat by Pulse 90 100 92 Oximetry 07/04/20 07/04/20 11:00 12:27 Temperature Pulse Rate 119 H 94 H Pulse Rate [ From Monitor] Respiratory 22 Rate Blood Pressure 130/69 104/66 O2 Sat by Pulse 98 95 Oximetry - Labs CBC & Chem 7: 07/05/20 05:18 07/05/20 05:18 Labs: Abnormal lab results 07/03/20 07/03/20 07/03/20 Range/Units 12:20 17:24 21:41 WBC (4.5-11.0) K/mm3 RBC (3.65-5.03) M/mm3 Hgb (11.8-15.2) gm/dl Hct (35.5-45.6) % MCV (84-94) fl MCH (28-32) pg RDW (13.2-15.2) % Lymph % (Auto) (13.4-35.0) % Storey # (Auto) (0.0-0.8) K/mm3 Seg Neutrophils % (40.0-70.0) % Seg Neutrophils # (1.8-7.7) K/mm3 ABG pH (7.320-7.450) POC ABG pO2 (83-108) mmHg Sodium 132 L (137-145) mmol/L Potassium (3.6-5.0) mmol/L Chloride 88.5 L (98-107) mmol/L Carbon Dioxide 37 H (22-30) mmol/L Creatinine 0.3 L (0.8-1.3) mg/dL Glucose 230 H (75-100) mg/dL POC Glucose 163 H 220 H (70-105) mg/dL 07/04/20 07/04/20 07/04/20 Range/Units 00:54 03:25 04:00 WBC 14.9 H (4.5-11.0) K/mm3 RBC 2.91 L (3.65-5.03) M/mm3 Hgb 9.5 L (11.8-15.2) gm/dl Hct 29.2 L (35.5-45.6) % MCV 100 H (84-94) fl MCH 33 H (28-32) pg RDW 16.7 H (13.2-15.2) % Lymph % (Auto) 8.4 L (13.4-35.0) % Storey # (Auto) 1.1 H (0.0-0.8) K/mm3 Seg Neutrophils % 84.2 H (40.0-70.0) % Seg Neutrophils # 12.6 H (1.8-7.7) K/mm3 ABG pH 7.474 H (7.320-7.450) POC ABG pO2 51.8 L (83-108) mmHg Sodium (137-145) mmol/L Potassium (3.6-5.0) mmol/L Chloride (98-107) mmol/L Carbon Dioxide (22-30) mmol/L Creatinine (0.8-1.3) mg/dL Glucose (75-100) mg/dL POC Glucose 195 H (70-105) mg/dL 07/04/20 07/04/20 07/04/20 Range/Units 04:00 06:18 11:39 WBC (4.5-11.0) K/mm3 RBC (3.65-5.03) M/mm3 Hgb (11.8-15.2) gm/dl Hct (35.5-45.6) % MCV (84-94) fl MCH (28-32) pg RDW (13.2-15.2) % Lymph % (Auto) (13.4-35.0) % Storey # (Auto) (0.0-0.8) K/mm3 Seg Neutrophils % (40.0-70.0) % Seg Neutrophils # (1.8-7.7) K/mm3 ABG pH (7.320-7.450) POC ABG pO2 (83-108) mmHg Sodium (137-145) mmol/L Potassium 3.4 L (3.6-5.0) mmol/L Chloride 92.1 L (98-107) mmol/L Carbon Dioxide 34 H (22-30) mmol/L Creatinine 0.3 L (0.8-1.3) mg/dL Glucose 173 H (75-100) mg/dL POC Glucose 158 H 257 H (70-105) mg/dL
[2020-07-04] MEDS ORDERED: PHENobarbital 32.4 MG TAB PO SCH (14:21)
--- NOTE | 2020-07-04 17:00 | Progress Note ---
Assessment and Plan Acute hypoxemic respiratory failure due to COVID-19 Severe Sepsis Bilateral pneumonia Acute kidney injury (SEN) with acute tubular necrosis (ATN) Alcohol dependence Elevated liver function tests - awaiting tracheostomy (COVID repeat negative) - reduced FiO2 to 45% - metoprolol 5 mg IV q6h prn pulse > 130/min - continue care as below otherwise; - continue Seroquel at 300 mg po tid - continue Precedex - prn 12 lead EKG to monitor QT - continue midodrine re: hypotension - keep peep at 8 - continue bid protonix - continue bowel regimen - continue to wean supplemental oxygen for target O2 sat's > 92% acutely - continue to wean Levophed for target MAP > 65 mmHg - tracheostomy placement once oxygenation better / more hemodynamically stable - he will need a tracheostomy once numbers better - continue Daily SAT and SBT assessment as tolerated - VAP bundle addressed - continue lung protective strategies - continue bronchodilators with pulmonary hygiene per RT - wean per pulmonary driven protocols otherwise - accuchecks with glycemic control per SSI (While critically ill target blood glucose of 140-180 mg/dL; avoid hypoglycemia) - sedation prn for target RASS -1 to -2 - continue enteral nutritional support at goal rate as tolerated - continue airborne and contact isolation - follow repeat COVID-19 testing - continue Zinc & Vit C supplementaion - continue systemic steroids for Asthma / severe COVID infection - Prone positioning as tolerated - continue empiric full dose anticoagulation re: elevated d-dimers / hypercoagulable state - NOT a candidate for COVID convalescent plasma - continue systemic steroids X >/= 10 days - completed remdesivir dosing (total 5 days) - empiric AB's coverage per ID rec's - accuchecks with glycemic control per SSI (While critically ill target blood glucose of 140-180 mg/dL; avoid hypoglycemia) - avoid nephrotoxins, renally dose all medications - continue to avoid benzodiazepine's, reduce the possibility of delirium - continue wound care per RN / WCN - prn analgesia per CPOT score - Maintenance of sleep-wake cycle, avoid delirium - continue to avoid benzodiazepine's, reduce the possibility of delirium - aspiration precautions - G.I. & VTE prophylaxis - PT/OT/ROM exercises - continue mobility protocols for pressure ulcer prophylaxis - Monitor hemodynamics closely - continue other care per attending / other consultants - discharge planning ongoing concurrently .... Re-evaluate in am & prn CONDITION: CRITICAL PROGNOSIS: GUARDED CODE STATUS: FULL CODE The high probability of a clinically significant, sudden or life-threatening deterioration of the [respiratory, cardiovascular, hematologic & neurologic] system(s) required my full and direct attention, intervention and personal management. The aggregate critical care time was [33] minutes without overlap. Time includes spent on; [x] Data Review and interpretation [x] Patient assessment and monitoring of vital signs [x] Documentation [x] Medication orders and management Subjective Date of service: 07/04/20 Principal diagnosis: Ac hypoxemic resp failure; COVID-19; Severe Sepsis; Shaggy PNA; Alcohol Abuse Interval history: Patient is seen today for: Acute hypoxemic respiratory failure due to COVID-19; Severe Sepsis; Bilateral pneumonia; Alcohol dependence; Elevated liver function tests Seen and examined at bedside; 24hour events reviewed; nursing and respiratory care staff consulted; no adverse overnight events reported to me; resting in bed; remains on MVS; chest tube in place; FiO2 at 50% with some room to wean; abdomen remains distended but soft and passing stool Objective Vital Signs - 12hr 07/04/20 07/04/20 07/04/20 05:00 05:15 05:25 Temperature Pulse Rate 93 H 92 H 89 Pulse Rate [ From Monitor] Respiratory 15 14 30 H Rate Blood Pressure 98/65 93/64 O2 Sat by Pulse 89 92 97 Oximetry 07/04/20 07/04/20 07/04/20 05:30 05:45 06:00 Temperature Pulse Rate 99 H 93 H 90 Pulse Rate [ From Monitor] Respiratory 26 H 16 15 Rate Blood Pressure 92/59 101/61 106/67 O2 Sat by Pulse 98 88 95 Oximetry 07/04/20 07/04/20 07/04/20 06:15 06:30 06:45 Temperature Pulse Rate 89 58 L 89 Pulse Rate [ From Monitor] Respiratory 14 16 13 Rate Blood Pressure 106/67 116/79 116/79 O2 Sat by Pulse 96 96 98 Oximetry 07/04/20 07/04/20 07/04/20 07:00 07:15 07:31 Temperature Pulse Rate 87 82 84 Pulse Rate [ From Monitor] Respiratory 12 11 L 12 Rate Blood Pressure 123/70 123/70 119/80 O2 Sat by Pulse 95 98 95 Oximetry 07/04/20 07/04/20 07/04/20 07:45 08:00 08:16 Temperature 97.4 F L Pulse Rate 82 91 H 88 Pulse Rate [ 88 From Monitor] Respiratory 13 14 13 Rate Blood Pressure 120/79 125/82 92/53 O2 Sat by Pulse 99 98 97 Oximetry 07/04/20 07/04/20 07/04/20 08:30 08:45 09:00 Temperature Pulse Rate 91 H 123 H 124 H Pulse Rate [ From Monitor] Respiratory 14 19 26 H Rate Blood Pressure 95/57 130/71 135/77 O2 Sat by Pulse 92 93 97 Oximetry 07/04/20 07/04/20 07/04/20 09:16 09:30 09:46 Temperature Pulse Rate 136 H 152 H 142 H Pulse Rate [ From Monitor] Respiratory 28 H 34 H 29 H Rate Blood Pressure 133/78 121/96 115/88 O2 Sat by Pulse 93 99 89 Oximetry 07/04/20 07/04/20 07/04/20 10:00 10:15 10:30 Temperature Pulse Rate 144 H 140 H 137 H Pulse Rate [ From Monitor] Respiratory 36 H 35 H 33 H Rate Blood Pressure 122/80 135/88 135/88 O2 Sat by Pulse 89 90 100 Oximetry 07/04/20 07/04/20 07/04/20 10:46 11:00 11:15 Temperature Pulse Rate 133 H 119 H 119 H Pulse Rate [ From Monitor] Respiratory 25 H 22 24 Rate Blood Pressure 154/129 130/69 118/81 O2 Sat by Pulse 92 98 Oximetry 07/04/20 07/04/20 07/04/20 11:30 11:45 12:00 Temperature 98.7 F Pulse Rate 113 H 111 H 106 H Pulse Rate [ From Monitor] Respiratory 17 17 13 Rate Blood Pressure 105/75 94/72 109/60 O2 Sat by Pulse 97 96 94 Oximetry 07/04/20 07/04/20 07/04/20 12:15 12:27 12:30 Temperature Pulse Rate 98 H 94 H 94 H Pulse Rate [ From Monitor] Respiratory 30 H 30 H Rate Blood Pressure 100/66 104/66 104/66 O2 Sat by Pulse 97 95 96 Oximetry 07/04/20 07/04/20 07/04/20 12:45 13:00 13:15 Temperature Pulse Rate 92 H 92 H 91 H Pulse Rate [ From Monitor] Respiratory 30 H 30 H 30 H Rate Blood Pressure 105/72 108/71 108/68 O2 Sat by Pulse 97 93 92 Oximetry 07/04/20 07/04/20 07/04/20 13:30 13:45 14:00 Temperature Pulse Rate 90 89 89 Pulse Rate [ From Monitor] Respiratory 30 H 30 H 20 Rate Blood Pressure 115/75 114/71 93/52 O2 Sat by Pulse 92 91 98 Oximetry 07/04/20 07/04/20 07/04/20 14:15 14:30 14:45 Temperature Pulse Rate 90 89 90 Pulse Rate [ From Monitor] Respiratory 8 L 30 H 30 H Rate Blood Pressure 92/59 93/61 96/57 O2 Sat by Pulse 94 94 93 Oximetry 07/04/20 07/04/20 07/04/20 15:00 15:13 15:15 Temperature Pulse Rate 91 H 89 90 Pulse Rate [ From Monitor] Respiratory 30 H 30 H Rate Blood Pressure 104/67 102/67 102/67 O2 Sat by Pulse 92 99 93 Oximetry 07/04/20 15:30 Temperature Pulse Rate 89 Pulse Rate [ From Monitor] Respiratory 30 H Rate Blood Pressure 96/63 O2 Sat by Pulse 91 Oximetry Constitutional: no acute distress, other (middle aged obese male with mildly increased respiratory effort at rest on MVS) Eyes: non-icteric ENT: oropharynx moist, other (ETT 24 cm CHILO) Neck: supple, no JVD Effort: mildly labored Ascultation: Bilateral: diminished breath sounds, rhonchi (scant), other (right chest tube) Percussion: Bilateral: not dull Cardiovascular: regular rate and rhythm, other (No R/M) Gastrointestinal: normoactive bowel sounds, soft, non-tender, other (distended and firm) Integumentary: normal Extremities: no cyanosis, no edema, pulses normal, no ischemia or petechiae Neurologic: non-focal exam (non focal grossly; weak), pupils equal and round, CN II-XII normal Psychiatric: other (sedated) CBC and BMP: 07/05/20 05:18 07/05/20 05:18 ABG, PT/INR, D-dimer: ABG ABG pH 7.474 (7.320-7.450) H 07/04/20 03:25 POC ABG pCO2 46.0 mmHg (32.0-48.0) 07/04/20 03:25 ABG pCO2 69.8 mm Hg 06/22/20 03:50 POC ABG pO2 51.8 mmHg (83-108) L 07/04/20 03:25 ABG pO2 89.6 mm Hg (80.0-90.0) 06/22/20 03:50 POC ABG HCO3 33.0 07/04/20 03:25 ABG O2 Saturation 97.1 % (95.0-99.0) 06/22/20 03:50 PT/INR, D-dimer PT 11.8 Sec. (12.2-14.9) L 06/22/20 14:29 INR 0.88 (0.87-1.13) 06/22/20 14:29 D-Dimer 1887.82 ng/mlDDU (0-234) H 05/20/20 08:16 Abnormal lab findings: Abnormal Labs 05/09/20 05/09/20 05/09/20 12:59 12:59 12:59 WBC 11.8 H RBC Hgb Hct MCV 96 H MCH 34 H MCHC 35 H RDW Lymph % (Auto) 6.9 L Lymph # (Auto) 0.8 L Elliott # (Auto) Baso # (Auto) Seg Neutrophils % 87.5 H Seg Neuts % (Manual) Lymphocytes % (Manual) Nucleated RBC % Seg Neutrophils # 10.3 H Seg Neutrophils # Man Lymphocytes # (Manual) Monocytes # (Manual) Eosinophils # (Manual) PT INR APTT D-Dimer Heparin Anti-Xa Level ABG pH POC ABG pCO2 POC ABG pO2 ABG pO2 ABG HCO3 ABG O2 Saturation ABG Base Excess ABG Hemoglobin ABG Oxyhemoglobin ABG Sodium ABG Potassium ABG Chloride ABG Glucose Oxyhemoglobin Carboxyhemoglobin Sodium 130 L Potassium 3.5 L Chloride 86.4 L Carbon Dioxide BUN 33 H Creatinine 2.3 H Glucose 156 H POC Glucose Lactic Acid Calcium Magnesium Ferritin Total Bilirubin 3.40 H Direct Bilirubin 1.7 H AST 385 H ALT 134 H Alkaline Phosphatase Lactate Dehydrogenase C-Reactive Protein Total Protein Albumin 3.0 L Triglycerides Lipase Arterial Blood Glucose Arterial Blood Ionized Calcium Urine WBC (Auto) Coronavirus (PCR) SARS-CoV-2 IgG Ab Crossmatch 05/09/20 05/09/20 05/09/20 12:59 12:59 12:59 WBC RBC Hgb Hct MCV MCH MCHC RDW Lymph % (Auto) Lymph # (Auto) Elliott # (Auto) Baso # (Auto) Seg Neutrophils % Seg Neuts % (Manual) Lymphocytes % (Manual) Nucleated RBC % Seg Neutrophils # Seg Neutrophils # Man Lymphocytes # (Manual) Monocytes # (Manual) Eosinophils # (Manual) PT INR APTT D-Dimer 3242.51 H Heparin Anti-Xa Level ABG pH POC ABG pCO2 POC ABG pO2 ABG pO2 ABG HCO3 ABG O2 Saturation ABG Base Excess ABG Hemoglobin ABG Oxyhemoglobin ABG Sodium ABG Potassium ABG Chloride ABG Glucose Oxyhemoglobin Carboxyhemoglobin Sodium Potassium Chloride Carbon Dioxide BUN Creatinine Glucose 158 H POC Glucose Lactic Acid 3.50 H* Calcium Magnesium Ferritin Total Bilirubin Direct Bilirubin AST ALT Alkaline Phosphatase Lactate Dehydrogenase 2166 H C-Reactive Protein 39.00 H Total Protein Albumin Triglycerides Lipase Arterial Blood Glucose Arterial Blood Ionized Calcium Urine WBC (Auto) Coronavirus (PCR) SARS-CoV-2 IgG Ab Crossmatch 05/09/20 05/09/20 05/09/20 12:59 14:20 14:20 WBC RBC Hgb Hct MCV MCH MCHC RDW Lymph % (Auto) Lymph # (Auto) Elliott # (Auto) Baso # (Auto) Seg Neutrophils % Seg Neuts % (Manual) Lymphocytes % (Manual) Nucleated RBC % Seg Neutrophils # Seg Neutrophils # Man Lymphocytes # (Manual) Monocytes # (Manual) Eosinophils # (Manual) PT INR APTT D-Dimer 2861.78 H Heparin Anti-Xa Level ABG pH POC ABG pCO2 POC ABG pO2 ABG pO2 ABG HCO3 ABG O2 Saturation ABG Base Excess ABG Hemoglobin ABG Oxyhemoglobin ABG Sodium ABG Potassium ABG Chloride ABG Glucose Oxyhemoglobin Carboxyhemoglobin Sodium Potassium Chloride Carbon Dioxide BUN Creatinine Glucose POC Glucose Lactic Acid 2.20 H* Calcium Magnesium Ferritin 60207.0 H Total Bilirubin Direct Bilirubin AST ALT Alkaline Phosphatase Lactate Dehydrogenase C-Reactive Protein Total Protein Albumin Triglycerides Lipase Arterial Blood Glucose Arterial Blood Ionized Calcium Urine WBC (Auto) Coronavirus (PCR) SARS-CoV-2 IgG Ab Crossmatch 05/09/20 05/09/20 05/09/20 14:20 14:20 15:56 WBC RBC Hgb Hct MCV MCH MCHC RDW Lymph % (Auto) Lymph # (Auto) Elliott # (Auto) Baso # (Auto) Seg Neutrophils % Seg Neuts % (Manual) Lymphocytes % (Manual) Nucleated RBC % Seg Neutrophils # Seg Neutrophils # Man Lymphocytes # (Manual) Monocytes # (Manual) Eosinophils # (Manual) PT INR APTT D-Dimer Heparin Anti-Xa Level ABG pH POC ABG pCO2 POC ABG pO2 57.3 L ABG pO2 ABG HCO3 ABG O2 Saturation ABG Base Excess ABG Hemoglobin ABG Oxyhemoglobin 86.3 L ABG Sodium 129.9 L ABG Potassium ABG Chloride ABG Glucose 146 H Oxyhemoglobin Carboxyhemoglobin Sodium Potassium Chloride Carbon Dioxide BUN Creatinine Glucose 143 H POC Glucose Lactic Acid Calcium Magnesium Ferritin 96387.0 H Total Bilirubin Direct Bilirubin AST ALT Alkaline Phosphatase Lactate Dehydrogenase 1953 H C-Reactive Protein 33.50 H Total Protein Albumin Triglycerides Lipase Arterial Blood Glucose 146 H Arterial Blood Ionized Calcium 3.9 L Urine WBC (Auto) Coronavirus (PCR) SARS-CoV-2 IgG Ab Crossmatch 05/10/20 05/10/20 05/10/20 10:32 10:32 18:50 WBC 15.4 H RBC Hgb Hct MCV 97 H MCH 33 H MCHC RDW 13.1 L Lymph % (Auto) Lymph # (Auto) Elliott # (Auto) Baso # (Auto) Seg Neutrophils % Seg Neuts % (Manual) 89.0 H Lymphocytes % (Manual) 8.0 L Nucleated RBC % Seg Neutrophils # Seg Neutrophils # Man 13.7 H Lymphocytes # (Manual) Monocytes # (Manual) Eosinophils # (Manual) PT INR APTT D-Dimer Heparin Anti-Xa Level ABG pH POC ABG pCO2 POC ABG pO2 ABG pO2 ABG HCO3 ABG O2 Saturation ABG Base Excess ABG Hemoglobin ABG Oxyhemoglobin ABG Sodium ABG Potassium ABG Chloride ABG Glucose Oxyhemoglobin Carboxyhemoglobin Sodium 136 L Potassium Chloride 97.4 L Carbon Dioxide BUN 37 H Creatinine 1.7 H Glucose 209 H POC Glucose Lactic Acid Calcium Magnesium Ferritin > 2000.0 H Total Bilirubin Direct Bilirubin AST ALT Alkaline Phosphatase Lactate Dehydrogenase C-Reactive Protein Total Protein Albumin Triglycerides Lipase Arterial Blood Glucose Arterial Blood Ionized Calcium Urine WBC (Auto) Coronavirus (PCR) SARS-CoV-2 IgG Ab Crossmatch 05/10/20 05/10/20 05/10/20 18:50 19:00 Unknown WBC RBC Hgb Hct MCV MCH MCHC RDW Lymph % (Auto) Lymph # (Auto) Elliott # (Auto) Baso # (Auto) Seg Neutrophils % Seg Neuts % (Manual) Lymphocytes % (Manual) Nucleated RBC % Seg Neutrophils # Seg Neutrophils # Man Lymphocytes # (Manual) Monocytes # (Manual) Eosinophils # (Manual) PT INR APTT D-Dimer > 02308 H Heparin Anti-Xa Level ABG pH POC ABG pCO2 POC ABG pO2 ABG pO2 ABG HCO3 ABG O2 Saturation ABG Base Excess ABG Hemoglobin ABG Oxyhemoglobin ABG Sodium ABG Potassium ABG Chloride ABG Glucose Oxyhemoglobin Carboxyhemoglobin Sodium Potassium Chloride Carbon Dioxide BUN Creatinine Glucose POC Glucose Lactic Acid Calcium Magnesium Ferritin Total Bilirubin Direct Bilirubin AST ALT Alkaline Phosphatase Lactate Dehydrogenase 1879 H C-Reactive Protein 24.80 H Total Protein Albumin Triglycerides Lipase Arterial Blood Glucose Arterial Blood Ionized Calcium Urine WBC (Auto) 11.0 H Coronavirus (PCR) SARS-CoV-2 IgG Ab Crossmatch 05/10/20 05/11/20 05/11/20 Unknown 07:30 07:30 WBC RBC Hgb Hct MCV MCH MCHC RDW Lymph % (Auto) Lymph # (Auto) Elliott # (Auto) Baso # (Auto) Seg Neutrophils % Seg Neuts % (Manual) Lymphocytes % (Manual) Nucleated RBC % Seg Neutrophils # Seg Neutrophils # Man Lymphocytes # (Manual) Monocytes # (Manual) Eosinophils # (Manual) PT INR APTT D-Dimer > 2000 H Heparin Anti-Xa Level ABG pH POC ABG pCO2 POC ABG pO2 ABG pO2 ABG HCO3 ABG O2 Saturation ABG Base Excess ABG Hemoglobin ABG Oxyhemoglobin ABG Sodium ABG Potassium ABG Chloride ABG Glucose Oxyhemoglobin Carboxyhemoglobin Sodium Potassium Chloride 96.3 L Carbon Dioxide BUN 36 H Creatinine Glucose 161 H POC Glucose Lactic Acid Calcium 8.3 L Magnesium Ferritin Total Bilirubin 1.50 H Direct Bilirubin 0.6 H AST 178 H ALT 111 H Alkaline Phosphatase Lactate Dehydrogenase C-Reactive Protein Total Protein Albumin 3.0 L Triglycerides Lipase Arterial Blood Glucose Arterial Blood Ionized Calcium Urine WBC (Auto) Coronavirus (PCR) Positive A SARS-CoV-2 IgG Ab Crossmatch 05/11/20 05/11/20 05/11/20 07:30 07:30 07:30 WBC RBC Hgb Hct MCV MCH MCHC RDW Lymph % (Auto) Lymph # (Auto) Elliott # (Auto) Baso # (Auto) Seg Neutrophils % Seg Neuts % (Manual) Lymphocytes % (Manual) Nucleated RBC % Seg Neutrophils # Seg Neutrophils # Man Lymphocytes # (Manual) Monocytes # (Manual) Eosinophils # (Manual) PT INR APTT D-Dimer Heparin Anti-Xa Level ABG pH POC ABG pCO2 POC ABG pO2 ABG pO2 ABG HCO3 ABG O2 Saturation ABG Base Excess ABG Hemoglobin ABG Oxyhemoglobin ABG Sodium ABG Potassium ABG Chloride ABG Glucose Oxyhemoglobin Carboxyhemoglobin Sodium Potassium Chloride Carbon Dioxide BUN Creatinine Glucose POC Glucose Lactic Acid Calcium Magnesium Ferritin 24051.0 H Total Bilirubin Direct Bilirubin AST ALT Alkaline Phosphatase Lactate Dehydrogenase 1523 H C-Reactive Protein 12.90 H Total Protein Albumin Triglycerides Lipase Arterial Blood Glucose Arterial Blood Ionized Calcium Urine WBC (Auto) Coronavirus (PCR) SARS-CoV-2 IgG Ab Reactive A Crossmatch 05/13/20 05/13/20 05/15/20 05:20 05:20 08:15 WBC RBC Hgb Hct MCV MCH MCHC RDW Lymph % (Auto) Lymph # (Auto) Elliott # (Auto) Baso # (Auto) Seg Neutrophils % Seg Neuts % (Manual) Lymphocytes % (Manual) Nucleated RBC % Seg Neutrophils # Seg Neutrophils # Man Lymphocytes # (Manual) Monocytes # (Manual) Eosinophils # (Manual) PT INR APTT D-Dimer > 27097 H 5318.28 H Heparin Anti-Xa Level ABG pH POC ABG pCO2 POC ABG pO2 ABG pO2 ABG HCO3 ABG O2 Saturation ABG Base Excess ABG Hemoglobin ABG Oxyhemoglobin ABG Sodium ABG Potassium ABG Chloride ABG Glucose Oxyhemoglobin Carboxyhemoglobin Sodium Potassium Chloride Carbon Dioxide 32 H BUN 30 H Creatinine Glucose 156 H POC Glucose Lactic Acid Calcium Magnesium 2.60 H Ferritin Total Bilirubin 1.40 H Direct Bilirubin AST 121 H ALT 119 H Alkaline Phosphatase Lactate Dehydrogenase 957 H C-Reactive Protein 4.00 H Total Protein Albumin 3.0 L Triglycerides Lipase Arterial Blood Glucose Arterial Blood Ionized Calcium Urine WBC (Auto) Coronavirus (PCR) SARS-CoV-2 IgG Ab Crossmatch 05/15/20 05/15/20 05/15/20 08:15 08:15 08:15 WBC 12.4 H RBC Hgb Hct MCV 98 H MCH 33 H MCHC RDW Lymph % (Auto) 9.7 L Lymph # (Auto) Elliott # (Auto) Baso # (Auto) Seg Neutrophils % 86.8 H Seg Neuts % (Manual) Lymphocytes % (Manual) Nucleated RBC % Seg Neutrophils # 10.8 H Seg Neutrophils # Man Lymphocytes # (Manual) Monocytes # (Manual) Eosinophils # (Manual) PT INR APTT D-Dimer Heparin Anti-Xa Level ABG pH POC ABG pCO2 POC ABG pO2 ABG pO2 ABG HCO3 ABG O2 Saturation ABG Base Excess ABG Hemoglobin ABG Oxyhemoglobin ABG Sodium ABG Potassium ABG Chloride ABG Glucose Oxyhemoglobin Carboxyhemoglobin Sodium Potassium Chloride 94.8 L Carbon Dioxide 32 H BUN 22 H Creatinine Glucose 115 H POC Glucose Lactic Acid Calcium 8.3 L Magnesium Ferritin 2494.0 H Total Bilirubin Direct Bilirubin AST 73 H ALT 121 H Alkaline Phosphatase Lactate Dehydrogenase 835 H C-Reactive Protein 3.40 H Total Protein 6.1 L Albumin 3.0 L Triglycerides Lipase Arterial Blood Glucose Arterial Blood Ionized Calcium Urine WBC (Auto) Coronavirus (PCR) SARS-CoV-2 IgG Ab Crossmatch 05/17/20 05/17/20 05/17/20 05:50 05:50 05:50 WBC RBC Hgb Hct MCV MCH MCHC RDW Lymph % (Auto) Lymph # (Auto) Elliott # (Auto) Baso # (Auto) Seg Neutrophils % Seg Neuts % (Manual) Lymphocytes % (Manual) Nucleated RBC % Seg Neutrophils # Seg Neutrophils # Man Lymphocytes # (Manual) Monocytes # (Manual) Eosinophils # (Manual) PT INR APTT D-Dimer 2911.42 H Heparin Anti-Xa Level ABG pH POC ABG pCO2 POC ABG pO2 ABG pO2 ABG HCO3 ABG O2 Saturation ABG Base Excess ABG Hemoglobin ABG Oxyhemoglobin ABG Sodium ABG Potassium ABG Chloride ABG Glucose Oxyhemoglobin Carboxyhemoglobin Sodium 136 L Potassium Chloride 96.0 L Carbon Dioxide 34 H BUN 22 H Creatinine Glucose 140 H POC Glucose Lactic Acid Calcium Magnesium Ferritin 2082.0 H Total Bilirubin Direct Bilirubin AST ALT 75 H Alkaline Phosphatase Lactate Dehydrogenase 601 H C-Reactive Protein 2.70 H Total Protein Albumin 2.9 L Triglycerides Lipase Arterial Blood Glucose Arterial Blood Ionized Calcium Urine WBC (Auto) Coronavirus (PCR) SARS-CoV-2 IgG Ab Crossmatch 05/17/20 05/18/20 05/20/20 05:50 12:22 08:16 WBC RBC Hgb Hct MCV 98 H MCH 33 H MCHC RDW Lymph % (Auto) 8.0 L Lymph # (Auto) 0.8 L Elliott # (Auto) Baso # (Auto) Seg Neutrophils % 89.3 H Seg Neuts % (Manual) Lymphocytes % (Manual) Nucleated RBC % Seg Neutrophils # 8.8 H Seg Neutrophils # Man Lymphocytes # (Manual) Monocytes # (Manual) Eosinophils # (Manual) PT INR APTT D-Dimer 1887.82 H Heparin Anti-Xa Level ABG pH POC ABG pCO2 POC ABG pO2 ABG pO2 ABG HCO3 ABG O2 Saturation ABG Base Excess ABG Hemoglobin ABG Oxyhemoglobin ABG Sodium ABG Potassium ABG Chloride ABG Glucose Oxyhemoglobin Carboxyhemoglobin Sodium Potassium Chloride Carbon Dioxide BUN Creatinine Glucose POC Glucose 178 H Lactic Acid Calcium Magnesium Ferritin Total Bilirubin Direct Bilirubin AST ALT Alkaline Phosphatase Lactate Dehydrogenase C-Reactive Protein Total Protein Albumin Triglycerides Lipase Arterial Blood Glucose Arterial Blood Ionized Calcium Urine WBC (Auto) Coronavirus (PCR) SARS-CoV-2 IgG Ab Crossmatch 05/20/20 05/20/20 05/21/20 08:16 08:16 21:10 WBC RBC Hgb Hct MCV MCH MCHC RDW Lymph % (Auto) Lymph # (Auto) Elliott # (Auto) Baso # (Auto) Seg Neutrophils % Seg Neuts % (Manual) Lymphocytes % (Manual) Nucleated RBC % Seg Neutrophils # Seg Neutrophils # Man Lymphocytes # (Manual) Monocytes # (Manual) Eosinophils # (Manual) PT INR APTT D-Dimer Heparin Anti-Xa Level ABG pH 7.483 H POC ABG pCO2 POC ABG pO2 ABG pO2 50.0 L ABG HCO3 27.0 H ABG O2 Saturation 86.2 L ABG Base Excess 3.7 H ABG Hemoglobin ABG Oxyhemoglobin ABG Sodium ABG Potassium ABG Chloride ABG Glucose Oxyhemoglobin 84.2 L Carboxyhemoglobin Sodium Potassium Chloride Carbon Dioxide BUN Creatinine Glucose POC Glucose Lactic Acid Calcium Magnesium Ferritin 1960.0 H Total Bilirubin Direct Bilirubin AST ALT Alkaline Phosphatase Lactate Dehydrogenase 705 H C-Reactive Protein 3.10 H Total Protein Albumin Triglycerides Lipase Arterial Blood Glucose Arterial Blood Ionized Calcium Urine WBC (Auto) Coronavirus (PCR) SARS-CoV-2 IgG Ab Crossmatch 05/22/20 05/22/20 05/22/20 04:01 07:53 07:53 WBC 19.2 H RBC Hgb Hct MCV 98 H MCH 34 H MCHC RDW Lymph % (Auto) Lymph # (Auto) Elliott # (Auto) Baso # (Auto) Seg Neutrophils % Seg Neuts % (Manual) 96.0 H Lymphocytes % (Manual) 1.0 L Nucleated RBC % Seg Neutrophils # Seg Neutrophils # Man 18.4 H Lymphocytes # (Manual) 0.2 L Monocytes # (Manual) Eosinophils # (Manual) PT INR APTT D-Dimer Heparin Anti-Xa Level ABG pH POC ABG pCO2 53.8 H POC ABG pO2 125.5 H ABG pO2 ABG HCO3 ABG O2 Saturation ABG Base Excess ABG Hemoglobin ABG Oxyhemoglobin ABG Sodium 131.8 L ABG Potassium 4.8 H ABG Chloride 94.0 L ABG Glucose 163 H Oxyhemoglobin Carboxyhemoglobin Sodium 131 L Potassium Chloride 93.4 L Carbon Dioxide BUN 40 H Creatinine Glucose 176 H POC Glucose Lactic Acid Calcium Magnesium 2.70 H Ferritin Total Bilirubin 1.80 H Direct Bilirubin AST 45 H ALT 116 H Alkaline Phosphatase 181 H Lactate Dehydrogenase C-Reactive Protein Total Protein Albumin 2.6 L Triglycerides Lipase Arterial Blood Glucose 163 H Arterial Blood Ionized Calcium 4.5 L Urine WBC (Auto) Coronavirus (PCR) SARS-CoV-2 IgG Ab Crossmatch 05/23/20 05/24/20 05/24/20 04:17 03:07 04:08 WBC RBC Hgb Hct MCV MCH MCHC RDW Lymph % (Auto) Lymph # (Auto) Elliott # (Auto) Baso # (Auto) Seg Neutrophils % Seg Neuts % (Manual) Lymphocytes % (Manual) Nucleated RBC % Seg Neutrophils # Seg Neutrophils # Man Lymphocytes # (Manual) Monocytes # (Manual) Eosinophils # (Manual) PT INR APTT D-Dimer Heparin Anti-Xa Level ABG pH 7.328 L POC ABG pCO2 POC ABG pO2 ABG pO2 72.8 L 73.4 L ABG HCO3 31.0 H 34.0 H ABG O2 Saturation 93.5 L ABG Base Excess 3.5 H 7.7 H ABG Hemoglobin 13.3 L 12.1 L ABG Oxyhemoglobin ABG Sodium ABG Potassium ABG Chloride ABG Glucose Oxyhemoglobin 91.5 L 94.3 L Carboxyhemoglobin Sodium Potassium Chloride Carbon Dioxide BUN Creatinine Glucose POC Glucose 155 H Lactic Acid Calcium Magnesium Ferritin Total Bilirubin Direct Bilirubin AST ALT Alkaline Phosphatase Lactate Dehydrogenase C-Reactive Protein Total Protein Albumin Triglycerides Lipase Arterial Blood Glucose Arterial Blood Ionized Calcium Urine WBC (Auto) Coronavirus (PCR) SARS-CoV-2 IgG Ab Crossmatch 05/24/20 05/24/20 05/24/20 09:33 12:21 17:52 WBC RBC Hgb Hct MCV MCH MCHC RDW Lymph % (Auto) Lymph # (Auto) Elliott # (Auto) Baso # (Auto) Seg Neutrophils % Seg Neuts % (Manual) Lymphocytes % (Manual) Nucleated RBC % Seg Neutrophils # Seg Neutrophils # Man Lymphocytes # (Manual) Monocytes # (Manual) Eosinophils # (Manual) PT INR APTT D-Dimer Heparin Anti-Xa Level ABG pH POC ABG pCO2 POC ABG pO2 ABG pO2 ABG HCO3 ABG O2 Saturation ABG Base Excess ABG Hemoglobin ABG Oxyhemoglobin ABG Sodium ABG Potassium ABG Chloride ABG Glucose Oxyhemoglobin Carboxyhemoglobin Sodium Potassium Chloride Carbon Dioxide 34 H D BUN 28 H Creatinine 0.7 L Glucose 168 H POC Glucose 173 H 164 H Lactic Acid Calcium Magnesium Ferritin Total Bilirubin Direct Bilirubin AST ALT Alkaline Phosphatase Lactate Dehydrogenase C-Reactive Protein Total Protein Albumin Triglycerides Lipase Arterial Blood Glucose Arterial Blood Ionized Calcium Urine WBC (Auto) Coronavirus (PCR) SARS-CoV-2 IgG Ab Crossmatch 05/24/20 05/25/20 05/25/20 23:47 04:29 05:46 WBC RBC Hgb Hct MCV MCH MCHC RDW Lymph % (Auto) Lymph # (Auto) Elliott # (Auto) Baso # (Auto) Seg Neutrophils % Seg Neuts % (Manual) Lymphocytes % (Manual) Nucleated RBC % Seg Neutrophils # Seg Neutrophils # Man Lymphocytes # (Manual) Monocytes # (Manual) Eosinophils # (Manual) PT INR APTT D-Dimer Heparin Anti-Xa Level ABG pH POC ABG pCO2 68.6 H POC ABG pO2 ABG pO2 ABG HCO3 ABG O2 Saturation ABG Base Excess ABG Hemoglobin ABG Oxyhemoglobin ABG Sodium ABG Potassium 4.7 H ABG Chloride ABG Glucose 226 H Oxyhemoglobin Carboxyhemoglobin Sodium Potassium Chloride Carbon Dioxide BUN Creatinine Glucose POC Glucose 171 H 201 H Lactic Acid Calcium Magnesium Ferritin Total Bilirubin Direct Bilirubin AST ALT Alkaline Phosphatase Lactate Dehydrogenase C-Reactive Protein Total Protein Albumin Triglycerides Lipase Arterial Blood Glucose 226 H Arterial Blood Ionized Calcium Urine WBC (Auto) Coronavirus (PCR) SARS-CoV-2 IgG Ab Crossmatch 05/25/20 05/25/20 05/25/20 08:37 08:37 12:38 WBC 12.0 H RBC 3.64 L Hgb Hct MCV 99 H MCH 33 H MCHC RDW Lymph % (Auto) Lymph # (Auto) Elliott # (Auto) Baso # (Auto) Seg Neutrophils % Seg Neuts % (Manual) Lymphocytes % (Manual) Nucleated RBC % Seg Neutrophils # Seg Neutrophils # Man Lymphocytes # (Manual) Monocytes # (Manual) Eosinophils # (Manual) PT INR APTT D-Dimer Heparin Anti-Xa Level ABG pH POC ABG pCO2 POC ABG pO2 ABG pO2 ABG HCO3 ABG O2 Saturation ABG Base Excess ABG Hemoglobin ABG Oxyhemoglobin ABG Sodium ABG Potassium ABG Chloride ABG Glucose Oxyhemoglobin Carboxyhemoglobin Sodium Potassium Chloride 97.3 L Carbon Dioxide 35 H BUN 25 H Creatinine 0.7 L Glucose 191 H POC Glucose 182 H Lactic Acid Calcium Magnesium Ferritin Total Bilirubin Direct Bilirubin AST ALT Alkaline Phosphatase Lactate Dehydrogenase C-Reactive Protein Total Protein Albumin Triglycerides Lipase Arterial Blood Glucose Arterial Blood Ionized Calcium Urine WBC (Auto) Coronavirus (PCR) SARS-CoV-2 IgG Ab Crossmatch 05/25/20 05/26/20 05/26/20 18:16 00:06 04:50 WBC RBC Hgb Hct MCV MCH MCHC RDW Lymph % (Auto) Lymph # (Auto) [place] # (Auto) Baso # (Auto) Seg Neutrophils % Seg Neuts % (Manual) Lymphocytes % (Manual) Nucleated RBC % Seg Neutrophils # Seg Neutrophils # Man Lymphocytes # (Manual) Monocytes # (Manual) Eosinophils # (Manual) PT INR APTT D-Dimer Heparin Anti-Xa Level ABG pH POC ABG pCO2 POC ABG pO2 ABG pO2 221.5 H ABG HCO3 40.4 H ABG O2 Saturation 99.3 H ABG Base Excess 12.8 H ABG Hemoglobin 10.4 L ABG Oxyhemoglobin ABG Sodium ABG Potassium ABG Chloride ABG Glucose Oxyhemoglobin Carboxyhemoglobin Sodium Potassium Chloride Carbon Dioxide BUN Creatinine Glucose POC Glucose 176 H 152 H Lactic Acid Calcium Magnesium Ferritin Total Bilirubin Direct Bilirubin AST ALT Alkaline Phosphatase Lactate Dehydrogenase C-Reactive Protein Total Protein Albumin Triglycerides Lipase Arterial Blood Glucose Arterial Blood Ionized Calcium Urine WBC (Auto) Coronavirus (PCR) SARS-CoV-2 IgG Ab Crossmatch 05/26/20 05/26/20 05/26/20 06:11 07:51 07:51 WBC 13.4 H RBC 3.64 L Hgb Hct MCV 98 H MCH 33 H MCHC RDW Lymph % (Auto) Lymph # (Auto) [place] # (Auto) Baso # (Auto) Seg Neutrophils % Seg Neuts % (Manual) Lymphocytes % (Manual) Nucleated RBC % Seg Neutrophils # Seg Neutrophils # Man Lymphocytes # (Manual) Monocytes # (Manual) Eosinophils # (Manual) PT INR APTT D-Dimer Heparin Anti-Xa Level ABG pH POC ABG pCO2 POC ABG pO2 ABG pO2 ABG HCO3 ABG O2 Saturation ABG Base Excess ABG Hemoglobin ABG Oxyhemoglobin ABG Sodium ABG Potassium ABG Chloride ABG Glucose Oxyhemoglobin Carboxyhemoglobin Sodium Potassium Chloride 96.6 L Carbon Dioxide 39 H BUN 29 H Creatinine 0.7 L Glucose 174 H POC Glucose 165 H Lactic Acid Calcium Magnesium Ferritin Total Bilirubin Direct Bilirubin AST ALT Alkaline Phosphatase Lactate Dehydrogenase C-Reactive Protein Total Protein Albumin Triglycerides Lipase Arterial Blood Glucose Arterial Blood Ionized Calcium Urine WBC (Auto) Coronavirus (PCR) SARS-CoV-2 IgG Ab Crossmatch 05/26/20 05/27/20 05/27/20 23:23 03:43 05:29 WBC RBC Hgb Hct MCV MCH MCHC RDW Lymph % (Auto) Lymph # (Auto) [place] # (Auto) Baso # (Auto) Seg Neutrophils % Seg Neuts % (Manual) Lymphocytes % (Manual) Nucleated RBC % Seg Neutrophils # Seg Neutrophils # Man Lymphocytes # (Manual) Monocytes # (Manual) Eosinophils # (Manual) PT INR APTT D-Dimer Heparin Anti-Xa Level ABG pH 7.480 H POC ABG pCO2 52.4 H POC ABG pO2 61.4 L ABG pO2 ABG HCO3 ABG O2 Saturation ABG Base Excess ABG Hemoglobin ABG Oxyhemoglobin ABG Sodium 134.9 L ABG Potassium ABG Chloride 95.0 L ABG Glucose 221 H Oxyhemoglobin Carboxyhemoglobin Sodium Potassium Chloride Carbon Dioxide BUN Creatinine Glucose POC Glucose 169 H 227 H Lactic Acid Calcium Magnesium Ferritin Total Bilirubin Direct Bilirubin AST ALT Alkaline Phosphatase Lactate Dehydrogenase C-Reactive Protein Total Protein Albumin Triglycerides Lipase Arterial Blood Glucose 221 H Arterial Blood Ionized Calcium 4.5 L Urine WBC (Auto) Coronavirus (PCR) SARS-CoV-2 IgG Ab Crossmatch 05/27/20 05/27/20 05/27/20 07:19 12:18 13:50 WBC RBC Hgb Hct MCV MCH MCHC RDW Lymph % (Auto) Lymph # (Auto) [place] # (Auto) Baso # (Auto) Seg Neutrophils % Seg Neuts % (Manual) Lymphocytes % (Manual) Nucleated RBC % Seg Neutrophils # Seg Neutrophils # Man Lymphocytes # (Manual) Monocytes # (Manual) Eosinophils # (Manual) PT INR APTT D-Dimer Heparin Anti-Xa Level ABG pH POC ABG pCO2 POC ABG pO2 ABG pO2 ABG HCO3 ABG O2 Saturation ABG Base Excess ABG Hemoglobin ABG Oxyhemoglobin ABG Sodium ABG Potassium ABG Chloride ABG Glucose Oxyhemoglobin Carboxyhemoglobin Sodium Potassium Chloride Carbon Dioxide BUN Creatinine Glucose POC Glucose 114 H 148 H Lactic Acid Calcium Magnesium Ferritin Total Bilirubin Direct Bilirubin AST ALT Alkaline Phosphatase Lactate Dehydrogenase C-Reactive Protein Total Protein Albumin Triglycerides 247 H Lipase Arterial Blood Glucose Arterial Blood Ionized Calcium Urine WBC (Auto) Coronavirus (PCR) SARS-CoV-2 IgG Ab Crossmatch 05/28/20 05/28/20 05/28/20 00:13 04:16 05:22 WBC RBC Hgb Hct MCV MCH MCHC RDW Lymph % (Auto) Lymph # (Auto) [place] # (Auto) Baso # (Auto) Seg Neutrophils % Seg Neuts % (Manual) Lymphocytes % (Manual) Nucleated RBC % Seg Neutrophils # Seg Neutrophils # Man Lymphocytes # (Manual) Monocytes # (Manual) Eosinophils # (Manual) PT INR APTT D-Dimer Heparin Anti-Xa Level ABG pH POC ABG pCO2 64.4 H POC ABG pO2 60.5 L ABG pO2 ABG HCO3 ABG O2 Saturation ABG Base Excess ABG Hemoglobin ABG Oxyhemoglobin ABG Sodium ABG Potassium ABG Chloride 95.0 L ABG Glucose 209 H Oxyhemoglobin Carboxyhemoglobin Sodium Potassium Chloride Carbon Dioxide BUN Creatinine Glucose POC Glucose 155 H 186 H Lactic Acid Calcium Magnesium Ferritin Total Bilirubin Direct Bilirubin AST ALT Alkaline Phosphatase Lactate Dehydrogenase C-Reactive Protein Total Protein Albumin Triglycerides Lipase Arterial Blood Glucose 209 H Arterial Blood Ionized Calcium Urine WBC (Auto) Coronavirus (PCR) SARS-CoV-2 IgG Ab Crossmatch 05/28/20 05/28/20 05/29/20 12:45 17:39 00:37 WBC RBC Hgb Hct MCV MCH MCHC RDW Lymph % (Auto) Lymph # (Auto) [place] # (Auto) Baso # (Auto) Seg Neutrophils % Seg Neuts % (Manual) Lymphocytes % (Manual) Nucleated RBC % Seg Neutrophils # Seg Neutrophils # Man Lymphocytes # (Manual) Monocytes # (Manual) Eosinophils # (Manual) PT INR APTT D-Dimer Heparin Anti-Xa Level ABG pH POC ABG pCO2 POC ABG pO2 ABG pO2 ABG HCO3 ABG O2 Saturation ABG Base Excess ABG Hemoglobin ABG Oxyhemoglobin ABG Sodium ABG Potassium ABG Chloride ABG Glucose Oxyhemoglobin Carboxyhemoglobin Sodium Potassium Chloride Carbon Dioxide BUN Creatinine Glucose POC Glucose 143 H 164 H 221 H Lactic Acid Calcium Magnesium Ferritin Total Bilirubin Direct Bilirubin AST ALT Alkaline Phosphatase Lactate Dehydrogenase C-Reactive Protein Total Protein Albumin Triglycerides Lipase Arterial Blood Glucose Arterial Blood Ionized Calcium Urine WBC (Auto) Coronavirus (PCR) SARS-CoV-2 IgG Ab Crossmatch 05/29/20 05/29/20 05/29/20 04:15 05:33 12:34 WBC RBC Hgb Hct MCV MCH MCHC RDW Lymph % (Auto) Lymph # (Auto) [place] # (Auto) Baso # (Auto) Seg Neutrophils % Seg Neuts % (Manual) Lymphocytes % (Manual) Nucleated RBC % Seg Neutrophils # Seg Neutrophils # Man Lymphocytes # (Manual) Monocytes # (Manual) Eosinophils # (Manual) PT INR APTT D-Dimer Heparin Anti-Xa Level ABG pH 7.463 H POC ABG pCO2 56.3 H POC ABG pO2 81.2 L ABG pO2 ABG HCO3 ABG O2 Saturation ABG Base Excess ABG Hemoglobin ABG Oxyhemoglobin ABG Sodium ABG Potassium ABG Chloride 96.0 L ABG Glucose 194 H Oxyhemoglobin Carboxyhemoglobin Sodium Potassium Chloride Carbon Dioxide BUN Creatinine Glucose POC Glucose 133 H 221 H Lactic Acid Calcium Magnesium Ferritin Total Bilirubin Direct Bilirubin AST ALT Alkaline Phosphatase Lactate Dehydrogenase C-Reactive Protein Total Protein Albumin Triglycerides Lipase Arterial Blood Glucose 194 H Arterial Blood Ionized Calcium 4.5 L Urine WBC (Auto) Coronavirus (PCR) SARS-CoV-2 IgG Ab Crossmatch 05/29/20 05/30/20 05/30/20 18:07 00:12 05:38 WBC RBC Hgb Hct MCV MCH MCHC RDW Lymph % (Auto) Lymph # (Auto) [place] # (Auto) Baso # (Auto) Seg Neutrophils % Seg Neuts % (Manual) Lymphocytes % (Manual) Nucleated RBC % Seg Neutrophils # Seg Neutrophils # Man Lymphocytes # (Manual) Monocytes # (Manual) Eosinophils # (Manual) PT INR APTT D-Dimer Heparin Anti-Xa Level ABG pH POC ABG pCO2 POC ABG pO2 ABG pO2 ABG HCO3 ABG O2 Saturation ABG Base Excess ABG Hemoglobin ABG Oxyhemoglobin ABG Sodium ABG Potassium ABG Chloride ABG Glucose Oxyhemoglobin Carboxyhemoglobin Sodium Potassium Chloride Carbon Dioxide BUN Creatinine Glucose POC Glucose 162 H 190 H 208 H Lactic Acid Calcium Magnesium Ferritin Total Bilirubin Direct Bilirubin AST ALT Alkaline Phosphatase Lactate Dehydrogenase C-Reactive Protein Total Protein Albumin Triglycerides Lipase Arterial Blood Glucose Arterial Blood Ionized Calcium Urine WBC (Auto) Coronavirus (PCR) SARS-CoV-2 IgG Ab Crossmatch 05/30/20 05/30/20 05/30/20 09:30 11:35 11:54 WBC 12.4 H RBC 3.48 L Hgb 11.3 L Hct 34.6 L MCV 99 H MCH 33 H MCHC RDW Lymph % (Auto) Lymph # (Auto) [place] # (Auto) Baso # (Auto) Seg Neutrophils % Seg Neuts % (Manual) Lymphocytes % (Manual) Nucleated RBC % Seg Neutrophils # Seg Neutrophils # Man Lymphocytes # (Manual) Monocytes # (Manual) Eosinophils # (Manual) PT INR APTT D-Dimer Heparin Anti-Xa Level ABG pH 7.455 H POC ABG pCO2 57.5 H POC ABG pO2 81.5 L ABG pO2 ABG HCO3 ABG O2 Saturation ABG Base Excess ABG Hemoglobin ABG Oxyhemoglobin ABG Sodium ABG Potassium ABG Chloride 96.0 L ABG Glucose 204 H Oxyhemoglobin Carboxyhemoglobin Sodium Potassium Chloride Carbon Dioxide BUN Creatinine Glucose POC Glucose 183 H Lactic Acid Calcium Magnesium Ferritin Total Bilirubin Direct Bilirubin AST ALT Alkaline Phosphatase Lactate Dehydrogenase C-Reactive Protein Total Protein Albumin Triglycerides Lipase Arterial Blood Glucose 204 H Arterial Blood Ionized Calcium Urine WBC (Auto) Coronavirus (PCR) SARS-CoV-2 IgG Ab Crossmatch 05/30/20 05/31/20 05/31/20 18:01 00:10 03:22 WBC RBC Hgb Hct MCV MCH MCHC RDW Lymph % (Auto) Lymph # (Auto) [place] # (Auto) Baso # (Auto) Seg Neutrophils % Seg Neuts % (Manual) Lymphocytes % (Manual) Nucleated RBC % Seg Neutrophils # Seg Neutrophils # Man Lymphocytes # (Manual) Monocytes # (Manual) Eosinophils # (Manual) PT INR APTT D-Dimer Heparin Anti-Xa Level ABG pH POC ABG pCO2 60.4 H POC ABG pO2 71.5 L ABG pO2 ABG HCO3 ABG O2 Saturation ABG Base Excess ABG Hemoglobin ABG Oxyhemoglobin ABG Sodium ABG Potassium ABG Chloride 96.0 L ABG Glucose 169 H Oxyhemoglobin Carboxyhemoglobin Sodium Potassium Chloride Carbon Dioxide BUN Creatinine Glucose POC Glucose 184 H 135 H Lactic Acid Calcium Magnesium Ferritin Total Bilirubin Direct Bilirubin AST ALT Alkaline Phosphatase Lactate Dehydrogenase C-Reactive Protein Total Protein Albumin Triglycerides Lipase Arterial Blood Glucose 169 H Arterial Blood Ionized Calcium 4.5 L Urine WBC (Auto) Coronavirus (PCR) SARS-CoV-2 IgG Ab Crossmatch 05/31/20 05/31/20 05/31/20 05:24 11:18 14:41 WBC RBC Hgb Hct MCV MCH MCHC RDW Lymph % (Auto) Lymph # (Auto) [place] # (Auto) Baso # (Auto) Seg Neutrophils % Seg Neuts % (Manual) Lymphocytes % (Manual) Nucleated RBC % Seg Neutrophils # Seg Neutrophils # Man Lymphocytes # (Manual) Monocytes # (Manual) Eosinophils # (Manual) PT INR APTT D-Dimer Heparin Anti-Xa Level ABG pH POC ABG pCO2 POC ABG pO2 ABG pO2 ABG HCO3 ABG O2 Saturation ABG Base Excess ABG Hemoglobin ABG Oxyhemoglobin ABG Sodium ABG Potassium ABG Chloride ABG Glucose Oxyhemoglobin Carboxyhemoglobin Sodium Potassium Chloride 96.8 L Carbon Dioxide 37 H BUN 31 H Creatinine 0.6 L Glucose 213 H POC Glucose 164 H 208 H Lactic Acid Calcium Magnesium Ferritin Total Bilirubin Direct Bilirubin AST ALT Alkaline Phosphatase Lactate Dehydrogenase C-Reactive Protein Total Protein Albumin Triglycerides Lipase Arterial Blood Glucose Arterial Blood Ionized Calcium Urine WBC (Auto) Coronavirus (PCR) SARS-CoV-2 IgG Ab Crossmatch 05/31/20 05/31/20 06/01/20 17:37 23:47 03:48 WBC RBC Hgb Hct MCV MCH MCHC RDW Lymph % (Auto) Lymph # (Auto) [place] # (Auto) Baso # (Auto) Seg Neutrophils % Seg Neuts % (Manual) Lymphocytes % (Manual) Nucleated RBC % Seg Neutrophils # Seg Neutrophils # Man Lymphocytes # (Manual) Monocytes # (Manual) Eosinophils # (Manual) PT INR APTT D-Dimer Heparin Anti-Xa Level ABG pH POC ABG pCO2 59.7 H POC ABG pO2 73.9 L ABG pO2 ABG HCO3 ABG O2 Saturation ABG Base Excess ABG Hemoglobin ABG Oxyhemoglobin ABG Sodium ABG Potassium ABG Chloride 95.0 L ABG Glucose 256 H Oxyhemoglobin Carboxyhemoglobin Sodium Potassium Chloride Carbon Dioxide BUN Creatinine Glucose POC Glucose 168 H 178 H Lactic Acid Calcium Magnesium Ferritin Total Bilirubin Direct Bilirubin AST ALT Alkaline Phosphatase Lactate Dehydrogenase C-Reactive Protein Total Protein Albumin Triglycerides Lipase Arterial Blood Glucose 256 H Arterial Blood Ionized Calcium Urine WBC (Auto) Coronavirus (PCR) SARS-CoV-2 IgG Ab Crossmatch 06/01/20 06/01/20 06/01/20 05:01 07:47 07:47 WBC 14.4 H RBC 3.46 L Hgb 11.1 L Hct 34.3 L MCV 99 H MCH MCHC RDW Lymph % (Auto) Lymph # (Auto) [place] # (Auto) Baso # (Auto) Seg Neutrophils % Seg Neuts % (Manual) 86.0 H Lymphocytes % (Manual) 9.0 L Nucleated RBC % Seg Neutrophils # Seg Neutrophils # Man 12.4 H Lymphocytes # (Manual) Monocytes # (Manual) Eosinophils # (Manual) PT INR APTT D-Dimer Heparin Anti-Xa Level ABG pH POC ABG pCO2 POC ABG pO2 ABG pO2 ABG HCO3 ABG O2 Saturation ABG Base Excess ABG Hemoglobin ABG Oxyhemoglobin ABG Sodium ABG Potassium ABG Chloride ABG Glucose Oxyhemoglobin Carboxyhemoglobin Sodium Potassium Chloride Carbon Dioxide BUN Creatinine Glucose POC Glucose 197 H Lactic Acid Calcium Magnesium Ferritin Total Bilirubin Direct Bilirubin AST ALT Alkaline Phosphatase Lactate Dehydrogenase C-Reactive Protein Total Protein Albumin Triglycerides 244 H Lipase Arterial Blood Glucose Arterial Blood Ionized Calcium Urine WBC (Auto) Coronavirus (PCR) SARS-CoV-2 IgG Ab Crossmatch 06/01/20 06/01/20 06/01/20 07:47 11:46 18:15 WBC RBC Hgb Hct MCV MCH MCHC RDW Lymph % (Auto) Lymph # (Auto) [place] # (Auto) Baso # (Auto) Seg Neutrophils % Seg Neuts % (Manual) Lymphocytes % (Manual) Nucleated RBC % Seg Neutrophils # Seg Neutrophils # Man Lymphocytes # (Manual) Monocytes # (Manual) Eosinophils # (Manual) PT INR APTT D-Dimer Heparin Anti-Xa Level ABG pH POC ABG pCO2 POC ABG pO2 ABG pO2 ABG HCO3 ABG O2 Saturation ABG Base Excess ABG Hemoglobin ABG Oxyhemoglobin ABG Sodium ABG Potassium ABG Chloride ABG Glucose Oxyhemoglobin Carboxyhemoglobin Sodium Potassium Chloride 95.4 L Carbon Dioxide 35 H BUN 30 H Creatinine 0.5 L Glucose 214 H POC Glucose 181 H 221 H Lactic Acid Calcium Magnesium Ferritin Total Bilirubin Direct Bilirubin AST 54 H ALT 235 H Alkaline Phosphatase Lactate Dehydrogenase C-Reactive Protein Total Protein Albumin 2.9 L Triglycerides Lipase Arterial Blood Glucose Arterial Blood Ionized Calcium Urine WBC (Auto) Coronavirus (PCR) SARS-CoV-2 IgG Ab Crossmatch 06/01/20 06/02/20 06/02/20 23:12 04:00 05:31 WBC RBC Hgb Hct MCV MCH MCHC RDW Lymph % (Auto) Lymph # (Auto) [place] # (Auto) Baso # (Auto) Seg Neutrophils % Seg Neuts % (Manual) Lymphocytes % (Manual) Nucleated RBC % Seg Neutrophils # Seg Neutrophils # Man Lymphocytes # (Manual) Monocytes # (Manual) Eosinophils # (Manual) PT INR APTT D-Dimer Heparin Anti-Xa Level ABG pH 7.465 H POC ABG pCO2 POC ABG pO2 ABG pO2 203.4 H ABG HCO3 41.2 H ABG O2 Saturation 99.3 H ABG Base Excess 15.1 H ABG Hemoglobin 11.5 L ABG Oxyhemoglobin ABG Sodium ABG Potassium ABG Chloride ABG Glucose Oxyhemoglobin Carboxyhemoglobin Sodium Potassium Chloride Carbon Dioxide BUN Creatinine Glucose POC Glucose 197 H 184 H Lactic Acid Calcium Magnesium Ferritin Total Bilirubin Direct Bilirubin AST ALT Alkaline Phosphatase Lactate Dehydrogenase C-Reactive Protein Total Protein Albumin Triglycerides Lipase Arterial Blood Glucose Arterial Blood Ionized Calcium Urine WBC (Auto) Coronavirus (PCR) SARS-CoV-2 IgG Ab Crossmatch 06/02/20 06/02/20 06/02/20 11:49 18:06 23:00 WBC RBC Hgb Hct MCV MCH MCHC RDW Lymph % (Auto) Lymph # (Auto) [place] # (Auto) Baso # (Auto) Seg Neutrophils % Seg Neuts % (Manual) Lymphocytes % (Manual) Nucleated RBC % Seg Neutrophils # Seg Neutrophils # Man Lymphocytes # (Manual) Monocytes # (Manual) Eosinophils # (Manual) PT INR APTT D-Dimer Heparin Anti-Xa Level ABG pH POC ABG pCO2 POC ABG pO2 ABG pO2 ABG HCO3 ABG O2 Saturation ABG Base Excess ABG Hemoglobin ABG Oxyhemoglobin ABG Sodium ABG Potassium ABG Chloride ABG Glucose Oxyhemoglobin Carboxyhemoglobin Sodium Potassium Chloride Carbon Dioxide BUN Creatinine Glucose POC Glucose 195 H 177 H 228 H Lactic Acid Calcium Magnesium Ferritin Total Bilirubin Direct Bilirubin AST ALT Alkaline Phosphatase Lactate Dehydrogenase C-Reactive Protein Total Protein Albumin Triglycerides Lipase Arterial Blood Glucose Arterial Blood Ionized Calcium Urine WBC (Auto) Coronavirus (PCR) SARS-CoV-2 IgG Ab Crossmatch 06/03/20 06/03/20 06/03/20 03:58 05:19 12:21 WBC RBC Hgb Hct MCV MCH MCHC RDW Lymph % (Auto) Lymph # (Auto) [place] # (Auto) Baso # (Auto) Seg Neutrophils % Seg Neuts % (Manual) Lymphocytes % (Manual) Nucleated RBC % Seg Neutrophils # Seg Neutrophils # Man Lymphocytes # (Manual) Monocytes # (Manual) Eosinophils # (Manual) PT INR APTT D-Dimer Heparin Anti-Xa Level ABG pH POC ABG pCO2 POC ABG pO2 ABG pO2 171.0 H ABG HCO3 42.8 H ABG O2 Saturation ABG Base Excess 15.6 H ABG Hemoglobin 12.3 L ABG Oxyhemoglobin ABG Sodium ABG Potassium ABG Chloride ABG Glucose Oxyhemoglobin Carboxyhemoglobin Sodium Potassium Chloride Carbon Dioxide BUN Creatinine Glucose POC Glucose 122 H 207 H Lactic Acid Calcium Magnesium Ferritin Total Bilirubin Direct Bilirubin AST ALT Alkaline Phosphatase Lactate Dehydrogenase C-Reactive Protein Total Protein Albumin Triglycerides Lipase Arterial Blood Glucose Arterial Blood Ionized Calcium Urine WBC (Auto) Coronavirus (PCR) SARS-CoV-2 IgG Ab Crossmatch 06/03/20 06/03/20 06/04/20 17:27 23:50 03:55 WBC RBC Hgb Hct MCV MCH MCHC RDW Lymph % (Auto) Lymph # (Auto) [place] # (Auto) Baso # (Auto) Seg Neutrophils % Seg Neuts % (Manual) Lymphocytes % (Manual) Nucleated RBC % Seg Neutrophils # Seg Neutrophils # Man Lymphocytes # (Manual) Monocytes # (Manual) Eosinophils # (Manual) PT INR APTT D-Dimer Heparin Anti-Xa Level ABG pH POC ABG pCO2 POC ABG pO2 ABG pO2 117.2 H ABG HCO3 42.4 H ABG O2 Saturation ABG Base Excess 15.3 H ABG Hemoglobin 10.5 L ABG Oxyhemoglobin ABG Sodium ABG Potassium ABG Chloride ABG Glucose Oxyhemoglobin Carboxyhemoglobin Sodium Potassium Chloride Carbon Dioxide BUN Creatinine Glucose POC Glucose 157 H 214 H Lactic Acid Calcium Magnesium Ferritin Total Bilirubin Direct Bilirubin AST ALT Alkaline Phosphatase Lactate Dehydrogenase C-Reactive Protein Total Protein Albumin Triglycerides Lipase Arterial Blood Glucose Arterial Blood Ionized Calcium Urine WBC (Auto) Coronavirus (PCR) SARS-CoV-2 IgG Ab Crossmatch 06/04/20 06/04/20 06/04/20 05:49 11:41 17:30 WBC RBC Hgb Hct MCV MCH MCHC RDW Lymph % (Auto) Lymph # (Auto) [place] # (Auto) Baso # (Auto) Seg Neutrophils % Seg Neuts % (Manual) Lymphocytes % (Manual) Nucleated RBC % Seg Neutrophils # Seg Neutrophils # Man Lymphocytes # (Manual) Monocytes # (Manual) Eosinophils # (Manual) PT INR APTT D-Dimer Heparin Anti-Xa Level ABG pH POC ABG pCO2 POC ABG pO2 ABG pO2 ABG HCO3 ABG O2 Saturation ABG Base Excess ABG Hemoglobin ABG Oxyhemoglobin ABG Sodium ABG Potassium ABG Chloride ABG Glucose Oxyhemoglobin Carboxyhemoglobin Sodium Potassium Chloride Carbon Dioxide BUN Creatinine Glucose POC Glucose 149 H 233 H 156 H Lactic Acid Calcium Magnesium Ferritin Total Bilirubin Direct Bilirubin AST ALT Alkaline Phosphatase Lactate Dehydrogenase C-Reactive Protein Total Protein Albumin Triglycerides Lipase Arterial Blood Glucose Arterial Blood Ionized Calcium Urine WBC (Auto) Coronavirus (PCR) SARS-CoV-2 IgG Ab Crossmatch 06/04/20 06/04/20 06/04/20 19:01 20:53 23:41 WBC RBC 3.18 L Hgb 10.8 L Hct 31.8 L MCV 100 H MCH 34 H MCHC RDW Lymph % (Auto) Lymph # (Auto) [place] # (Auto) Baso # (Auto) Seg Neutrophils % Seg Neuts % (Manual) 86.0 H Lymphocytes % (Manual) 10.0 L Nucleated RBC % 1.0 H Seg Neutrophils # Seg Neutrophils # Man 8.5 H Lymphocytes # (Manual) 1.0 L Monocytes # (Manual) Eosinophils # (Manual) PT INR APTT D-Dimer Heparin Anti-Xa Level ABG pH POC ABG pCO2 POC ABG pO2 ABG pO2 ABG HCO3 ABG O2 Saturation ABG Base Excess ABG Hemoglobin ABG Oxyhemoglobin ABG Sodium ABG Potassium ABG Chloride ABG Glucose Oxyhemoglobin Carboxyhemoglobin Sodium Potassium 3.4 L D Chloride 96.5 L Carbon Dioxide 41 H* BUN 27 H Creatinine 0.5 L Glucose 173 H POC Glucose 217 H Lactic Acid Calcium Magnesium Ferritin Total Bilirubin Direct Bilirubin AST ALT Alkaline Phosphatase Lactate Dehydrogenase C-Reactive Protein Total Protein Albumin Triglycerides Lipase Arterial Blood Glucose Arterial Blood Ionized Calcium Urine WBC (Auto) Coronavirus (PCR) SARS-CoV-2 IgG Ab Crossmatch 06/05/20 06/05/20 06/05/20 06:05 11:54 12:35 WBC RBC Hgb Hct MCV MCH MCHC RDW Lymph % (Auto) Lymph # (Auto) [place] # (Auto) Baso # (Auto) Seg Neutrophils % Seg Neuts % (Manual) Lymphocytes % (Manual) Nucleated RBC % Seg Neutrophils # Seg Neutrophils # Man Lymphocytes # (Manual) Monocytes # (Manual) Eosinophils # (Manual) PT INR APTT D-Dimer Heparin Anti-Xa Level ABG pH POC ABG pCO2 POC ABG pO2 ABG pO2 127.9 H ABG HCO3 41.1 H ABG O2 Saturation ABG Base Excess 13.0 H ABG Hemoglobin 13.4 L ABG Oxyhemoglobin ABG Sodium ABG Potassium ABG Chloride ABG Glucose Oxyhemoglobin Carboxyhemoglobin Sodium Potassium Chloride Carbon Dioxide BUN Creatinine Glucose POC Glucose 137 H 211 H Lactic Acid Calcium Magnesium Ferritin Total Bilirubin Direct Bilirubin AST ALT Alkaline Phosphatase Lactate Dehydrogenase C-Reactive Protein Total Protein Albumin Triglycerides Lipase Arterial Blood Glucose Arterial Blood Ionized Calcium Urine WBC (Auto) Coronavirus (PCR) SARS-CoV-2 IgG Ab Crossmatch 06/05/20 06/05/20 06/06/20 17:03 23:49 04:42 WBC RBC Hgb Hct MCV MCH MCHC RDW Lymph % (Auto) Lymph # (Auto) [place] # (Auto) Baso # (Auto) Seg Neutrophils % Seg Neuts % (Manual) Lymphocytes % (Manual) Nucleated RBC % Seg Neutrophils # Seg Neutrophils # Man Lymphocytes # (Manual) Monocytes # (Manual) Eosinophils # (Manual) PT INR APTT D-Dimer Heparin Anti-Xa Level ABG pH POC ABG pCO2 56.1 H POC ABG pO2 52.5 L ABG pO2 ABG HCO3 ABG O2 Saturation ABG Base Excess ABG Hemoglobin 11.7 L ABG Oxyhemoglobin ABG Sodium ABG Potassium 3.3 L ABG Chloride 95.0 L ABG Glucose 156 H Oxyhemoglobin Carboxyhemoglobin Sodium Potassium Chloride Carbon Dioxide BUN Creatinine Glucose POC Glucose 159 H 194 H Lactic Acid Calcium Magnesium Ferritin Total Bilirubin Direct Bilirubin AST ALT Alkaline Phosphatase Lactate Dehydrogenase C-Reactive Protein Total Protein Albumin Triglycerides Lipase Arterial Blood Glucose 156 H Arterial Blood Ionized Calcium Urine WBC (Auto) Coronavirus (PCR) SARS-CoV-2 IgG Ab Crossmatch 06/06/20 06/06/20 06/06/20 05:57 12:06 17:38 WBC RBC Hgb Hct MCV MCH MCHC RDW Lymph % (Auto) Lymph # (Auto) Elliott # (Auto) Baso # (Auto) Seg Neutrophils % Seg Neuts % (Manual) Lymphocytes % (Manual) Nucleated RBC % Seg Neutrophils # Seg Neutrophils # Man Lymphocytes # (Manual) Monocytes # (Manual) Eosinophils # (Manual) PT INR APTT D-Dimer Heparin Anti-Xa Level ABG pH POC ABG pCO2 POC ABG pO2 ABG pO2 ABG HCO3 ABG O2 Saturation ABG Base Excess ABG Hemoglobin ABG Oxyhemoglobin ABG Sodium ABG Potassium ABG Chloride ABG Glucose Oxyhemoglobin Carboxyhemoglobin Sodium Potassium Chloride Carbon Dioxide BUN Creatinine Glucose POC Glucose 144 H 230 H 162 H Lactic Acid Calcium Magnesium Ferritin Total Bilirubin Direct Bilirubin AST ALT Alkaline Phosphatase Lactate Dehydrogenase C-Reactive Protein Total Protein Albumin Triglycerides Lipase Arterial Blood Glucose Arterial Blood Ionized Calcium Urine WBC (Auto) Coronavirus (PCR) SARS-CoV-2 IgG Ab Crossmatch 06/06/20 06/07/20 06/07/20 23:50 04:34 06:03 WBC RBC Hgb Hct MCV MCH MCHC RDW Lymph % (Auto) Lymph # (Auto) Elliott # (Auto) Baso # (Auto) Seg Neutrophils % Seg Neuts % (Manual) Lymphocytes % (Manual) Nucleated RBC % Seg Neutrophils # Seg Neutrophils # Man Lymphocytes # (Manual) Monocytes # (Manual) Eosinophils # (Manual) PT INR APTT D-Dimer Heparin Anti-Xa Level ABG pH 7.511 H POC ABG pCO2 53.5 H POC ABG pO2 114.5 H ABG pO2 ABG HCO3 ABG O2 Saturation ABG Base Excess ABG Hemoglobin 9.4 L ABG Oxyhemoglobin ABG Sodium 134.5 L ABG Potassium ABG Chloride 94.0 L ABG Glucose 186 H Oxyhemoglobin Carboxyhemoglobin Sodium Potassium Chloride Carbon Dioxide BUN Creatinine Glucose POC Glucose 181 H 155 H Lactic Acid Calcium Magnesium Ferritin Total Bilirubin Direct Bilirubin AST ALT Alkaline Phosphatase Lactate Dehydrogenase C-Reactive Protein Total Protein Albumin Triglycerides Lipase Arterial Blood Glucose 186 H Arterial Blood Ionized Calcium 4.5 L Urine WBC (Auto) Coronavirus (PCR) SARS-CoV-2 IgG Ab Crossmatch 06/07/20 06/07/20 06/07/20 13:41 14:58 14:58 WBC RBC 2.72 L Hgb 9.3 L Hct 27.2 L MCV 100 H MCH 34 H MCHC RDW Lymph % (Auto) Lymph # (Auto) Elliott # (Auto) Baso # (Auto) Seg Neutrophils % Seg Neuts % (Manual) Lymphocytes % (Manual) Nucleated RBC % Seg Neutrophils # Seg Neutrophils # Man Lymphocytes # (Manual) Monocytes # (Manual) Eosinophils # (Manual) PT INR APTT D-Dimer Heparin Anti-Xa Level ABG pH POC ABG pCO2 POC ABG pO2 ABG pO2 ABG HCO3 ABG O2 Saturation ABG Base Excess ABG Hemoglobin ABG Oxyhemoglobin ABG Sodium ABG Potassium ABG Chloride ABG Glucose Oxyhemoglobin Carboxyhemoglobin Sodium Potassium Chloride 93.5 L Carbon Dioxide 39 H BUN 22 H Creatinine 0.4 L Glucose 188 H POC Glucose 201 H Lactic Acid Calcium Magnesium Ferritin Total Bilirubin Direct Bilirubin AST 61 H ALT 273 H Alkaline Phosphatase Lactate Dehydrogenase C-Reactive Protein Total Protein 5.9 L Albumin 2.7 L Triglycerides Lipase Arterial Blood Glucose Arterial Blood Ionized Calcium Urine WBC (Auto) Coronavirus (PCR) SARS-CoV-2 IgG Ab Crossmatch 06/07/20 06/08/20 06/08/20 23:18 05:31 12:07 WBC RBC Hgb Hct MCV MCH MCHC RDW Lymph % (Auto) Lymph # (Auto) Elliott # (Auto) Baso # (Auto) Seg Neutrophils % Seg Neuts % (Manual) Lymphocytes % (Manual) Nucleated RBC % Seg Neutrophils # Seg Neutrophils # Man Lymphocytes # (Manual) Monocytes # (Manual) Eosinophils # (Manual) PT INR APTT D-Dimer Heparin Anti-Xa Level ABG pH POC ABG pCO2 POC ABG pO2 ABG pO2 ABG HCO3 ABG O2 Saturation ABG Base Excess ABG Hemoglobin ABG Oxyhemoglobin ABG Sodium ABG Potassium ABG Chloride ABG Glucose Oxyhemoglobin Carboxyhemoglobin Sodium Potassium Chloride Carbon Dioxide BUN Creatinine Glucose POC Glucose 214 H 129 H 179 H Lactic Acid Calcium Magnesium Ferritin Total Bilirubin Direct Bilirubin AST ALT Alkaline Phosphatase Lactate Dehydrogenase C-Reactive Protein Total Protein Albumin Triglycerides Lipase Arterial Blood Glucose Arterial Blood Ionized Calcium Urine WBC (Auto) Coronavirus (PCR) SARS-CoV-2 IgG Ab Crossmatch 06/08/20 06/08/20 06/09/20 18:18 23:35 05:42 WBC RBC Hgb Hct MCV MCH MCHC RDW Lymph % (Auto) Lymph # (Auto) [place] # (Auto) Baso # (Auto) Seg Neutrophils % Seg Neuts % (Manual) Lymphocytes % (Manual) Nucleated RBC % Seg Neutrophils # Seg Neutrophils # Man Lymphocytes # (Manual) Monocytes # (Manual) Eosinophils # (Manual) PT INR APTT D-Dimer Heparin Anti-Xa Level ABG pH POC ABG pCO2 POC ABG pO2 ABG pO2 ABG HCO3 ABG O2 Saturation ABG Base Excess ABG Hemoglobin ABG Oxyhemoglobin ABG Sodium ABG Potassium ABG Chloride ABG Glucose Oxyhemoglobin Carboxyhemoglobin Sodium Potassium Chloride Carbon Dioxide BUN Creatinine Glucose POC Glucose 172 H 177 H 137 H Lactic Acid Calcium Magnesium Ferritin Total Bilirubin Direct Bilirubin AST ALT Alkaline Phosphatase Lactate Dehydrogenase C-Reactive Protein Total Protein Albumin Triglycerides Lipase Arterial Blood Glucose Arterial Blood Ionized Calcium Urine WBC (Auto) Coronavirus (PCR) SARS-CoV-2 IgG Ab Crossmatch 06/09/20 06/09/20 06/09/20 06:20 07:55 07:55 WBC 12.4 H RBC 3.26 L Hgb 11.1 L Hct 33.4 L D MCV 102 H MCH 34 H MCHC RDW Lymph % (Auto) Lymph # (Auto) Elliott # (Auto) Baso # (Auto) Seg Neutrophils % Seg Neuts % (Manual) Lymphocytes % (Manual) Nucleated RBC % Seg Neutrophils # Seg Neutrophils # Man Lymphocytes # (Manual) Monocytes # (Manual) Eosinophils # (Manual) PT INR APTT D-Dimer Heparin Anti-Xa Level ABG pH 7.466 H POC ABG pCO2 50.7 H POC ABG pO2 53.0 L ABG pO2 ABG HCO3 ABG O2 Saturation ABG Base Excess ABG Hemoglobin ABG Oxyhemoglobin ABG Sodium ABG Potassium 2.9 L ABG Chloride 93.0 L ABG Glucose 138 H Oxyhemoglobin Carboxyhemoglobin Sodium Potassium 3.0 L Chloride 92.3 L Carbon Dioxide 37 H BUN 21 H Creatinine 0.6 L Glucose 120 H POC Glucose Lactic Acid Calcium Magnesium Ferritin Total Bilirubin Direct Bilirubin AST ALT Alkaline Phosphatase Lactate Dehydrogenase C-Reactive Protein Total Protein Albumin Triglycerides Lipase Arterial Blood Glucose 138 H Arterial Blood Ionized Calcium 4.5 L Urine WBC (Auto) Coronavirus (PCR) SARS-CoV-2 IgG Ab Crossmatch 06/09/20 06/09/20 06/10/20 11:22 18:32 04:46 WBC RBC Hgb Hct MCV MCH MCHC RDW Lymph % (Auto) Lymph # (Auto) [place] # (Auto) Baso # (Auto) Seg Neutrophils % Seg Neuts % (Manual) Lymphocytes % (Manual) Nucleated RBC % Seg Neutrophils # Seg Neutrophils # Man Lymphocytes # (Manual) Monocytes # (Manual) Eosinophils # (Manual) PT INR APTT D-Dimer Heparin Anti-Xa Level ABG pH 7.501 H POC ABG pCO2 POC ABG pO2 126.5 H ABG pO2 ABG HCO3 ABG O2 Saturation ABG Base Excess ABG Hemoglobin 10.3 L ABG Oxyhemoglobin ABG Sodium ABG Potassium ABG Chloride ABG Glucose 220 H Oxyhemoglobin Carboxyhemoglobin Sodium Potassium Chloride Carbon Dioxide BUN Creatinine Glucose POC Glucose 117 H 121 H Lactic Acid Calcium Magnesium Ferritin Total Bilirubin Direct Bilirubin AST ALT Alkaline Phosphatase Lactate Dehydrogenase C-Reactive Protein Total Protein Albumin Triglycerides Lipase Arterial Blood Glucose 220 H Arterial Blood Ionized Calcium Urine WBC (Auto) Coronavirus (PCR) SARS-CoV-2 IgG Ab Crossmatch 06/10/20 06/10/20 06/10/20 05:30 09:38 12:03 WBC RBC Hgb Hct MCV MCH MCHC RDW Lymph % (Auto) Lymph # (Auto) [place] # (Auto) Baso # (Auto) Seg Neutrophils % Seg Neuts % (Manual) Lymphocytes % (Manual) Nucleated RBC % Seg Neutrophils # Seg Neutrophils # Man Lymphocytes # (Manual) Monocytes # (Manual) Eosinophils # (Manual) PT INR APTT D-Dimer Heparin Anti-Xa Level ABG pH POC ABG pCO2 POC ABG pO2 ABG pO2 ABG HCO3 ABG O2 Saturation ABG Base Excess ABG Hemoglobin ABG Oxyhemoglobin ABG Sodium ABG Potassium ABG Chloride ABG Glucose Oxyhemoglobin Carboxyhemoglobin Sodium Potassium Chloride Carbon Dioxide BUN Creatinine Glucose POC Glucose 181 H 204 H Lactic Acid Calcium Magnesium Ferritin Total Bilirubin Direct Bilirubin AST ALT Alkaline Phosphatase Lactate Dehydrogenase C-Reactive Protein Total Protein Albumin Triglycerides 738 H Lipase Arterial Blood Glucose Arterial Blood Ionized Calcium Urine WBC (Auto) Coronavirus (PCR) SARS-CoV-2 IgG Ab Crossmatch 06/10/20 06/11/20 06/11/20 17:17 00:04 04:38 WBC RBC Hgb Hct MCV MCH MCHC RDW Lymph % (Auto) Lymph # (Auto) [place] # (Auto) Baso # (Auto) Seg Neutrophils % Seg Neuts % (Manual) Lymphocytes % (Manual) Nucleated RBC % Seg Neutrophils # Seg Neutrophils # Man Lymphocytes # (Manual) Monocytes # (Manual) Eosinophils # (Manual) PT INR APTT D-Dimer Heparin Anti-Xa Level ABG pH 7.479 H POC ABG pCO2 POC ABG pO2 76.7 L ABG pO2 ABG HCO3 ABG O2 Saturation ABG Base Excess ABG Hemoglobin 9.8 L ABG Oxyhemoglobin ABG Sodium 135.8 L ABG Potassium ABG Chloride ABG Glucose 238 H Oxyhemoglobin Carboxyhemoglobin Sodium Potassium Chloride Carbon Dioxide BUN Creatinine Glucose POC Glucose 156 H 178 H Lactic Acid Calcium Magnesium Ferritin Total Bilirubin Direct Bilirubin AST ALT Alkaline Phosphatase Lactate Dehydrogenase C-Reactive Protein Total Protein Albumin Triglycerides Lipase Arterial Blood Glucose 238 H Arterial Blood Ionized Calcium Urine WBC (Auto) Coronavirus (PCR) SARS-CoV-2 IgG Ab Crossmatch 06/11/20 06/11/20 06/11/20 05:21 06:52 11:50 WBC RBC Hgb Hct MCV MCH MCHC RDW Lymph % (Auto) Lymph # (Auto) [place] # (Auto) Baso # (Auto) Seg Neutrophils % Seg Neuts % (Manual) Lymphocytes % (Manual) Nucleated RBC % Seg Neutrophils # Seg Neutrophils # Man Lymphocytes # (Manual) Monocytes # (Manual) Eosinophils # (Manual) PT INR APTT D-Dimer Heparin Anti-Xa Level ABG pH POC ABG pCO2 POC ABG pO2 ABG pO2 ABG HCO3 ABG O2 Saturation ABG Base Excess ABG Hemoglobin ABG Oxyhemoglobin ABG Sodium ABG Potassium ABG Chloride ABG Glucose Oxyhemoglobin Carboxyhemoglobin Sodium Potassium Chloride Carbon Dioxide BUN Creatinine Glucose POC Glucose 215 H 187 H Lactic Acid Calcium Magnesium Ferritin Total Bilirubin Direct Bilirubin AST ALT Alkaline Phosphatase Lactate Dehydrogenase C-Reactive Protein Total Protein Albumin Triglycerides 331 H Lipase Arterial Blood Glucose Arterial Blood Ionized Calcium Urine WBC (Auto) Coronavirus (PCR) SARS-CoV-2 IgG Ab Crossmatch 06/11/20 06/11/20 06/12/20 17:49 23:35 04:52 WBC RBC Hgb Hct MCV MCH MCHC RDW Lymph % (Auto) Lymph # (Auto) [place] # (Auto) Baso # (Auto) Seg Neutrophils % Seg Neuts % (Manual) Lymphocytes % (Manual) Nucleated RBC % Seg Neutrophils # Seg Neutrophils # Man Lymphocytes # (Manual) Monocytes # (Manual) Eosinophils # (Manual) PT INR APTT D-Dimer Heparin Anti-Xa Level ABG pH 7.486 H POC ABG pCO2 POC ABG pO2 ABG pO2 ABG HCO3 ABG O2 Saturation ABG Base Excess ABG Hemoglobin 9.4 L ABG Oxyhemoglobin ABG Sodium ABG Potassium 3.2 L ABG Chloride ABG Glucose 209 H Oxyhemoglobin Carboxyhemoglobin Sodium Potassium Chloride Carbon Dioxide BUN Creatinine Glucose POC Glucose 211 H 200 H Lactic Acid Calcium Magnesium Ferritin Total Bilirubin Direct Bilirubin AST ALT Alkaline Phosphatase Lactate Dehydrogenase C-Reactive Protein Total Protein Albumin Triglycerides Lipase Arterial Blood Glucose 209 H Arterial Blood Ionized Calcium Urine WBC (Auto) Coronavirus (PCR) SARS-CoV-2 IgG Ab Crossmatch 06/12/20 06/12/20 06/12/20 05:13 11:47 18:33 WBC RBC Hgb Hct MCV MCH MCHC RDW Lymph % (Auto) Lymph # (Auto) [place] # (Auto) Baso # (Auto) Seg Neutrophils % Seg Neuts % (Manual) Lymphocytes % (Manual) Nucleated RBC % Seg Neutrophils # Seg Neutrophils # Man Lymphocytes # (Manual) Monocytes # (Manual) Eosinophils # (Manual) PT INR APTT D-Dimer Heparin Anti-Xa Level ABG pH POC ABG pCO2 POC ABG pO2 ABG pO2 ABG HCO3 ABG O2 Saturation ABG Base Excess ABG Hemoglobin ABG Oxyhemoglobin ABG Sodium ABG Potassium ABG Chloride ABG Glucose Oxyhemoglobin Carboxyhemoglobin Sodium Potassium Chloride Carbon Dioxide BUN Creatinine Glucose POC Glucose 174 H 214 H 194 H Lactic Acid Calcium Magnesium Ferritin Total Bilirubin Direct Bilirubin AST ALT Alkaline Phosphatase Lactate Dehydrogenase C-Reactive Protein Total Protein Albumin Triglycerides Lipase Arterial Blood Glucose Arterial Blood Ionized Calcium Urine WBC (Auto) Coronavirus (PCR) SARS-CoV-2 IgG Ab Crossmatch 06/12/20 06/13/20 06/13/20 23:49 05:41 12:30 WBC RBC Hgb Hct MCV MCH MCHC RDW Lymph % (Auto) Lymph # (Auto) [place] # (Auto) Baso # (Auto) Seg Neutrophils % Seg Neuts % (Manual) Lymphocytes % (Manual) Nucleated RBC % Seg Neutrophils # Seg Neutrophils # Man Lymphocytes # (Manual) Monocytes # (Manual) Eosinophils # (Manual) PT INR APTT D-Dimer Heparin Anti-Xa Level ABG pH POC ABG pCO2 POC ABG pO2 ABG pO2 ABG HCO3 ABG O2 Saturation ABG Base Excess ABG Hemoglobin ABG Oxyhemoglobin ABG Sodium ABG Potassium ABG Chloride ABG Glucose Oxyhemoglobin Carboxyhemoglobin Sodium Potassium Chloride Carbon Dioxide BUN Creatinine Glucose POC Glucose 160 H 150 H 181 H Lactic Acid Calcium Magnesium Ferritin Total Bilirubin Direct Bilirubin AST ALT Alkaline Phosphatase Lactate Dehydrogenase C-Reactive Protein Total Protein Albumin Triglycerides Lipase Arterial Blood Glucose Arterial Blood Ionized Calcium Urine WBC (Auto) Coronavirus (PCR) SARS-CoV-2 IgG Ab Crossmatch 06/13/20 06/13/20 06/13/20 14:14 17:48 23:27 WBC 12.8 H RBC 2.33 L Hgb 8.0 L Hct 23.3 L MCV 100 H MCH 34 H MCHC RDW 15.7 H Lymph % (Auto) Lymph # (Auto) Elliott # (Auto) Baso # (Auto) Seg Neutrophils % Seg Neuts % (Manual) 85.0 H Lymphocytes % (Manual) 10.0 L Nucleated RBC % Seg Neutrophils # Seg Neutrophils # Man 10.9 H Lymphocytes # (Manual) Monocytes # (Manual) Eosinophils # (Manual) PT INR APTT D-Dimer Heparin Anti-Xa Level ABG pH POC ABG pCO2 POC ABG pO2 ABG pO2 ABG HCO3 ABG O2 Saturation ABG Base Excess ABG Hemoglobin ABG Oxyhemoglobin ABG Sodium ABG Potassium ABG Chloride ABG Glucose Oxyhemoglobin Carboxyhemoglobin Sodium Potassium Chloride Carbon Dioxide BUN Creatinine Glucose POC Glucose 173 H 154 H Lactic Acid Calcium Magnesium Ferritin Total Bilirubin Direct Bilirubin AST ALT Alkaline Phosphatase Lactate Dehydrogenase C-Reactive Protein Total Protein Albumin Triglycerides Lipase Arterial Blood Glucose Arterial Blood Ionized Calcium Urine WBC (Auto) Coronavirus (PCR) SARS-CoV-2 IgG Ab Crossmatch 06/14/20 06/14/20 06/14/20 03:58 05:21 07:15 WBC 26.2 H RBC 2.97 L Hgb 9.7 L Hct 29.9 L D MCV 101 H MCH 33 H MCHC RDW 15.3 H Lymph % (Auto) Lymph # (Auto) Elliott # (Auto) Baso # (Auto) Seg Neutrophils % Seg Neuts % (Manual) 79.0 H Lymphocytes % (Manual) 5.0 L Nucleated RBC % 3.0 H Seg Neutrophils # Seg Neutrophils # Man 20.7 H Lymphocytes # (Manual) Monocytes # (Manual) 1.3 H Eosinophils # (Manual) PT INR APTT D-Dimer Heparin Anti-Xa Level ABG pH POC ABG pCO2 51.5 H POC ABG pO2 70.0 L ABG pO2 ABG HCO3 ABG O2 Saturation ABG Base Excess ABG Hemoglobin 10.1 L ABG Oxyhemoglobin ABG Sodium 131.5 L ABG Potassium 3.1 L ABG Chloride 93.0 L ABG Glucose 188 H Oxyhemoglobin Carboxyhemoglobin Sodium Potassium Chloride Carbon Dioxide BUN Creatinine Glucose POC Glucose 147 H Lactic Acid Calcium Magnesium Ferritin Total Bilirubin Direct Bilirubin AST ALT Alkaline Phosphatase Lactate Dehydrogenase C-Reactive Protein Total Protein Albumin Triglycerides Lipase Arterial Blood Glucose 188 H Arterial Blood Ionized Calcium Urine WBC (Auto) Coronavirus (PCR) SARS-CoV-2 IgG Ab Crossmatch 06/14/20 06/14/20 06/14/20 07:15 11:30 11:50 WBC RBC Hgb Hct MCV MCH MCHC RDW Lymph % (Auto) Lymph # (Auto) [place] # (Auto) Baso # (Auto) Seg Neutrophils % Seg Neuts % (Manual) Lymphocytes % (Manual) Nucleated RBC % Seg Neutrophils # Seg Neutrophils # Man Lymphocytes # (Manual) Monocytes # (Manual) Eosinophils # (Manual) PT INR APTT D-Dimer Heparin Anti-Xa Level ABG pH POC ABG pCO2 POC ABG pO2 ABG pO2 ABG HCO3 ABG O2 Saturation ABG Base Excess ABG Hemoglobin ABG Oxyhemoglobin ABG Sodium ABG Potassium ABG Chloride ABG Glucose Oxyhemoglobin Carboxyhemoglobin Sodium 135 L Potassium 3.5 L Chloride 90.4 L Carbon Dioxide 38 H BUN Creatinine 0.5 L Glucose 190 H POC Glucose 176 H Lactic Acid Calcium Magnesium Ferritin 1496.0 H Total Bilirubin Direct Bilirubin AST ALT 81 H Alkaline Phosphatase Lactate Dehydrogenase C-Reactive Protein Total Protein Albumin 2.9 L Triglycerides Lipase Arterial Blood Glucose Arterial Blood Ionized Calcium Urine WBC (Auto) Coronavirus (PCR) SARS-CoV-2 IgG Ab Crossmatch 06/14/20 06/15/20 06/15/20 23:31 04:00 05:00 WBC RBC Hgb Hct MCV MCH MCHC RDW Lymph % (Auto) Lymph # (Auto) [place] # (Auto) Baso # (Auto) Seg Neutrophils % Seg Neuts % (Manual) Lymphocytes % (Manual) Nucleated RBC % Seg Neutrophils # Seg Neutrophils # Man Lymphocytes # (Manual) Monocytes # (Manual) Eosinophils # (Manual) PT INR APTT D-Dimer Heparin Anti-Xa Level ABG pH POC ABG pCO2 POC ABG pO2 ABG pO2 ABG HCO3 ABG O2 Saturation ABG Base Excess ABG Hemoglobin ABG Oxyhemoglobin ABG Sodium ABG Potassium ABG Chloride ABG Glucose Oxyhemoglobin Carboxyhemoglobin Sodium 133 L Potassium Chloride 91.1 L Carbon Dioxide 34 H BUN Creatinine 0.4 L Glucose 159 H POC Glucose 200 H Lactic Acid Calcium Magnesium Ferritin Total Bilirubin 2.00 H Direct Bilirubin AST 47 H ALT 77 H Alkaline Phosphatase Lactate Dehydrogenase C-Reactive Protein Total Protein Albumin 2.6 L Triglycerides 152 H Lipase Arterial Blood Glucose Arterial Blood Ionized Calcium Urine WBC (Auto) Coronavirus (PCR) SARS-CoV-2 IgG Ab Crossmatch 06/15/20 06/15/20 06/15/20 05:35 06:27 11:38 WBC RBC Hgb Hct MCV MCH MCHC RDW Lymph % (Auto) Lymph # (Auto) [place] # (Auto) Baso # (Auto) Seg Neutrophils % Seg Neuts % (Manual) Lymphocytes % (Manual) Nucleated RBC % Seg Neutrophils # Seg Neutrophils # Man Lymphocytes # (Manual) Monocytes # (Manual) Eosinophils # (Manual) PT INR APTT D-Dimer Heparin Anti-Xa Level ABG pH POC ABG pCO2 61.0 H POC ABG pO2 67.9 L ABG pO2 ABG HCO3 ABG O2 Saturation ABG Base Excess ABG Hemoglobin 10.4 L ABG Oxyhemoglobin ABG Sodium 132.7 L ABG Potassium 3.3 L ABG Chloride 92.0 L ABG Glucose 158 H Oxyhemoglobin Carboxyhemoglobin Sodium Potassium Chloride Carbon Dioxide BUN Creatinine Glucose POC Glucose 148 H 197 H Lactic Acid Calcium Magnesium Ferritin Total Bilirubin Direct Bilirubin AST ALT Alkaline Phosphatase Lactate Dehydrogenase C-Reactive Protein Total Protein Albumin Triglycerides Lipase Arterial Blood Glucose 158 H Arterial Blood Ionized Calcium Urine WBC (Auto) Coronavirus (PCR) SARS-CoV-2 IgG Ab Crossmatch 06/15/20 06/15/20 06/16/20 17:29 Unknown 00:01 WBC 20.7 H RBC 2.57 L Hgb 8.9 L Hct 25.8 L MCV 101 H MCH 35 H MCHC 35 H RDW 16.0 H Lymph % (Auto) Lymph # (Auto) Elliott # (Auto) Baso # (Auto) Seg Neutrophils % Seg Neuts % (Manual) 83.0 H Lymphocytes % (Manual) 8.0 L Nucleated RBC % Seg Neutrophils # Seg Neutrophils # Man 17.2 H Lymphocytes # (Manual) Monocytes # (Manual) 1.2 H Eosinophils # (Manual) PT INR APTT D-Dimer Heparin Anti-Xa Level ABG pH POC ABG pCO2 POC ABG pO2 ABG pO2 ABG HCO3 ABG O2 Saturation ABG Base Excess ABG Hemoglobin ABG Oxyhemoglobin ABG Sodium ABG Potassium ABG Chloride ABG Glucose Oxyhemoglobin Carboxyhemoglobin Sodium Potassium Chloride Carbon Dioxide BUN Creatinine Glucose POC Glucose 231 H 257 H Lactic Acid Calcium Magnesium Ferritin Total Bilirubin Direct Bilirubin AST ALT Alkaline Phosphatase Lactate Dehydrogenase C-Reactive Protein Total Protein Albumin Triglycerides Lipase Arterial Blood Glucose Arterial Blood Ionized Calcium Urine WBC (Auto) Coronavirus (PCR) SARS-CoV-2 IgG Ab Crossmatch 06/16/20 06/16/20 06/16/20 04:00 04:00 05:22 WBC 13.8 H RBC 2.03 L Hgb 7.6 L Hct 20.7 L MCV 102 H MCH 37 H MCHC 37 H RDW 16.2 H Lymph % (Auto) 4.4 L Lymph # (Auto) 0.6 L Elliott # (Auto) Baso # (Auto) Seg Neutrophils % Seg Neuts % (Manual) Lymphocytes % (Manual) Nucleated RBC % Seg Neutrophils # 12.7 H Seg Neutrophils # Man Lymphocytes # (Manual) Monocytes # (Manual) Eosinophils # (Manual) PT INR APTT D-Dimer Heparin Anti-Xa Level ABG pH POC ABG pCO2 POC ABG pO2 ABG pO2 ABG HCO3 ABG O2 Saturation ABG Base Excess ABG Hemoglobin ABG Oxyhemoglobin ABG Sodium ABG Potassium ABG Chloride ABG Glucose Oxyhemoglobin Carboxyhemoglobin Sodium 130 L Potassium Chloride 88.9 L Carbon Dioxide 36 H BUN Creatinine 0.3 L Glucose 276 H POC Glucose 250 H Lactic Acid Calcium Magnesium Ferritin Total Bilirubin Direct Bilirubin AST ALT Alkaline Phosphatase Lactate Dehydrogenase C-Reactive Protein Total Protein Albumin Triglycerides Lipase Arterial Blood Glucose Arterial Blood Ionized Calcium Urine WBC (Auto) Coronavirus (PCR) SARS-CoV-2 IgG Ab Crossmatch 06/16/20 06/16/20 06/17/20 12:44 18:18 00:39 WBC RBC Hgb Hct MCV MCH MCHC RDW Lymph % (Auto) Lymph # (Auto) [place] # (Auto) Baso # (Auto) Seg Neutrophils % Seg Neuts % (Manual) Lymphocytes % (Manual) Nucleated RBC % Seg Neutrophils # Seg Neutrophils # Man Lymphocytes # (Manual) Monocytes # (Manual) Eosinophils # (Manual) PT INR APTT D-Dimer Heparin Anti-Xa Level ABG pH POC ABG pCO2 POC ABG pO2 ABG pO2 ABG HCO3 ABG O2 Saturation ABG Base Excess ABG Hemoglobin ABG Oxyhemoglobin ABG Sodium ABG Potassium ABG Chloride ABG Glucose Oxyhemoglobin Carboxyhemoglobin Sodium Potassium Chloride Carbon Dioxide BUN Creatinine Glucose POC Glucose 279 H 239 H 247 H Lactic Acid Calcium Magnesium Ferritin Total Bilirubin Direct Bilirubin AST ALT Alkaline Phosphatase Lactate Dehydrogenase C-Reactive Protein Total Protein Albumin Triglycerides Lipase Arterial Blood Glucose Arterial Blood Ionized Calcium Urine WBC (Auto) Coronavirus (PCR) SARS-CoV-2 IgG Ab Crossmatch 06/17/20 06/17/20 06/17/20 03:40 04:08 10:54 WBC RBC Hgb Hct MCV MCH MCHC RDW Lymph % (Auto) Lymph # (Auto) [place] # (Auto) Baso # (Auto) Seg Neutrophils % Seg Neuts % (Manual) Lymphocytes % (Manual) Nucleated RBC % Seg Neutrophils # Seg Neutrophils # Man Lymphocytes # (Manual) Monocytes # (Manual) Eosinophils # (Manual) PT INR APTT D-Dimer Heparin Anti-Xa Level ABG pH POC ABG pCO2 65.7 H POC ABG pO2 ABG pO2 ABG HCO3 ABG O2 Saturation ABG Base Excess ABG Hemoglobin 11.9 L ABG Oxyhemoglobin ABG Sodium ABG Potassium ABG Chloride 93.0 L ABG Glucose 244 H Oxyhemoglobin Carboxyhemoglobin Sodium Potassium Chloride Carbon Dioxide BUN Creatinine Glucose POC Glucose 221 H 248 H Lactic Acid Calcium Magnesium Ferritin Total Bilirubin Direct Bilirubin AST ALT Alkaline Phosphatase Lactate Dehydrogenase C-Reactive Protein Total Protein Albumin Triglycerides Lipase Arterial Blood Glucose 244 H Arterial Blood Ionized Calcium Urine WBC (Auto) Coronavirus (PCR) SARS-CoV-2 IgG Ab Crossmatch 06/17/20 06/17/20 06/17/20 17:47 23:11 23:29 WBC RBC Hgb Hct MCV MCH MCHC RDW Lymph % (Auto) Lymph # (Auto) [place] # (Auto) Baso # (Auto) Seg Neutrophils % Seg Neuts % (Manual) Lymphocytes % (Manual) Nucleated RBC % Seg Neutrophils # Seg Neutrophils # Man Lymphocytes # (Manual) Monocytes # (Manual) Eosinophils # (Manual) PT INR APTT D-Dimer Heparin Anti-Xa Level ABG pH POC ABG pCO2 85.2 H POC ABG pO2 48.4 L ABG pO2 ABG HCO3 ABG O2 Saturation ABG Base Excess ABG Hemoglobin 8.0 L ABG Oxyhemoglobin ABG Sodium ABG Potassium ABG Chloride 95.0 L ABG Glucose 292 H Oxyhemoglobin Carboxyhemoglobin Sodium Potassium Chloride Carbon Dioxide BUN Creatinine Glucose POC Glucose 245 H 252 H Lactic Acid Calcium Magnesium Ferritin Total Bilirubin Direct Bilirubin AST ALT Alkaline Phosphatase Lactate Dehydrogenase C-Reactive Protein Total Protein Albumin Triglycerides Lipase Arterial Blood Glucose 292 H Arterial Blood Ionized Calcium Urine WBC (Auto) Coronavirus (PCR) SARS-CoV-2 IgG Ab Crossmatch 06/18/20 06/18/20 06/18/20 03:14 05:34 11:47 WBC RBC Hgb Hct MCV MCH MCHC RDW Lymph % (Auto) Lymph # (Auto) [place] # (Auto) Baso # (Auto) Seg Neutrophils % Seg Neuts % (Manual) Lymphocytes % (Manual) Nucleated RBC % Seg Neutrophils # Seg Neutrophils # Man Lymphocytes # (Manual) Monocytes # (Manual) Eosinophils # (Manual) PT INR APTT D-Dimer Heparin Anti-Xa Level ABG pH POC ABG pCO2 65.4 H POC ABG pO2 160.7 H ABG pO2 ABG HCO3 ABG O2 Saturation ABG Base Excess ABG Hemoglobin 7.8 L ABG Oxyhemoglobin ABG Sodium ABG Potassium ABG Chloride 95.0 L ABG Glucose 251 H Oxyhemoglobin Carboxyhemoglobin Sodium Potassium Chloride Carbon Dioxide BUN Creatinine Glucose POC Glucose 243 H 263 H Lactic Acid Calcium Magnesium Ferritin Total Bilirubin Direct Bilirubin AST ALT Alkaline Phosphatase Lactate Dehydrogenase C-Reactive Protein Total Protein Albumin Triglycerides Lipase Arterial Blood Glucose 251 H Arterial Blood Ionized Calcium Urine WBC (Auto) Coronavirus (PCR) SARS-CoV-2 IgG Ab Crossmatch 06/18/20 06/18/20 06/19/20 17:31 23:33 04:32 WBC RBC Hgb Hct MCV MCH MCHC RDW Lymph % (Auto) Lymph # (Auto) Elliott # (Auto) Baso # (Auto) Seg Neutrophils % Seg Neuts % (Manual) Lymphocytes % (Manual) Nucleated RBC % Seg Neutrophils # Seg Neutrophils # Man Lymphocytes # (Manual) Monocytes # (Manual) Eosinophils # (Manual) PT INR APTT D-Dimer Heparin Anti-Xa Level ABG pH POC ABG pCO2 83.1 H POC ABG pO2 65.8 L ABG pO2 ABG HCO3 ABG O2 Saturation ABG Base Excess ABG Hemoglobin 8.9 L ABG Oxyhemoglobin ABG Sodium ABG Potassium ABG Chloride 96.0 L ABG Glucose 297 H Oxyhemoglobin Carboxyhemoglobin Sodium Potassium Chloride Carbon Dioxide BUN Creatinine Glucose POC Glucose 286 H 238 H Lactic Acid Calcium Magnesium Ferritin Total Bilirubin Direct Bilirubin AST ALT Alkaline Phosphatase Lactate Dehydrogenase C-Reactive Protein Total Protein Albumin Triglycerides Lipase Arterial Blood Glucose 297 H Arterial Blood Ionized Calcium Urine WBC (Auto) Coronavirus (PCR) SARS-CoV-2 IgG Ab Crossmatch 06/19/20 06/19/20 06/19/20 05:55 11:20 17:12 WBC RBC Hgb Hct MCV MCH MCHC RDW Lymph % (Auto) Lymph # (Auto) Elliott # (Auto) Baso # (Auto) Seg Neutrophils % Seg Neuts % (Manual) Lymphocytes % (Manual) Nucleated RBC % Seg Neutrophils # Seg Neutrophils # Man Lymphocytes # (Manual) Monocytes # (Manual) Eosinophils # (Manual) PT INR APTT D-Dimer Heparin Anti-Xa Level ABG pH POC ABG pCO2 POC ABG pO2 ABG pO2 ABG HCO3 ABG O2 Saturation ABG Base Excess ABG Hemoglobin ABG Oxyhemoglobin ABG Sodium ABG Potassium ABG Chloride ABG Glucose Oxyhemoglobin Carboxyhemoglobin Sodium Potassium Chloride Carbon Dioxide BUN Creatinine Glucose POC Glucose 274 H 282 H 298 H Lactic Acid Calcium Magnesium Ferritin Total Bilirubin Direct Bilirubin AST ALT Alkaline Phosphatase Lactate Dehydrogenase C-Reactive Protein Total Protein Albumin Triglycerides Lipase Arterial Blood Glucose Arterial Blood Ionized Calcium Urine WBC (Auto) Coronavirus (PCR) SARS-CoV-2 IgG Ab Crossmatch 06/19/20 06/20/20 06/20/20 23:08 03:33 06:01 WBC RBC Hgb Hct MCV MCH MCHC RDW Lymph % (Auto) Lymph # (Auto) [place] # (Auto) Baso # (Auto) Seg Neutrophils % Seg Neuts % (Manual) Lymphocytes % (Manual) Nucleated RBC % Seg Neutrophils # Seg Neutrophils # Man Lymphocytes # (Manual) Monocytes # (Manual) Eosinophils # (Manual) PT INR APTT D-Dimer Heparin Anti-Xa Level ABG pH POC ABG pCO2 POC ABG pO2 ABG pO2 69.9 L ABG HCO3 50.8 H ABG O2 Saturation ABG Base Excess 24.2 H ABG Hemoglobin 5.8 L ABG Oxyhemoglobin ABG Sodium ABG Potassium ABG Chloride ABG Glucose Oxyhemoglobin Carboxyhemoglobin Sodium Potassium Chloride Carbon Dioxide BUN Creatinine Glucose POC Glucose 293 H 182 H Lactic Acid Calcium Magnesium Ferritin Total Bilirubin Direct Bilirubin AST ALT Alkaline Phosphatase Lactate Dehydrogenase C-Reactive Protein Total Protein Albumin Triglycerides Lipase Arterial Blood Glucose Arterial Blood Ionized Calcium Urine WBC (Auto) Coronavirus (PCR) SARS-CoV-2 IgG Ab Crossmatch 06/20/20 06/20/20 06/20/20 11:47 17:46 23:37 WBC RBC Hgb Hct MCV MCH MCHC RDW Lymph % (Auto) Lymph # (Auto) [place] # (Auto) Baso # (Auto) Seg Neutrophils % Seg Neuts % (Manual) Lymphocytes % (Manual) Nucleated RBC % Seg Neutrophils # Seg Neutrophils # Man Lymphocytes # (Manual) Monocytes # (Manual) Eosinophils # (Manual) PT INR APTT D-Dimer Heparin Anti-Xa Level ABG pH POC ABG pCO2 POC ABG pO2 ABG pO2 ABG HCO3 ABG O2 Saturation ABG Base Excess ABG Hemoglobin ABG Oxyhemoglobin ABG Sodium ABG Potassium ABG Chloride ABG Glucose Oxyhemoglobin Carboxyhemoglobin Sodium Potassium Chloride Carbon Dioxide BUN Creatinine Glucose POC Glucose 170 H 215 H 256 H Lactic Acid Calcium Magnesium Ferritin Total Bilirubin Direct Bilirubin AST ALT Alkaline Phosphatase Lactate Dehydrogenase C-Reactive Protein Total Protein Albumin Triglycerides Lipase Arterial Blood Glucose Arterial Blood Ionized Calcium Urine WBC (Auto) Coronavirus (PCR) SARS-CoV-2 IgG Ab Crossmatch 06/21/20 06/21/20 06/21/20 04:00 05:14 05:51 WBC RBC Hgb Hct MCV MCH MCHC RDW Lymph % (Auto) Lymph # (Auto) [place] # (Auto) Baso # (Auto) Seg Neutrophils % Seg Neuts % (Manual) Lymphocytes % (Manual) Nucleated RBC % Seg Neutrophils # Seg Neutrophils # Man Lymphocytes # (Manual) Monocytes # (Manual) Eosinophils # (Manual) PT INR APTT D-Dimer Heparin Anti-Xa Level ABG pH 7.474 H POC ABG pCO2 POC ABG pO2 ABG pO2 ABG HCO3 52.1 H ABG O2 Saturation ABG Base Excess 23.3 H ABG Hemoglobin 5.3 L ABG Oxyhemoglobin ABG Sodium ABG Potassium ABG Chloride ABG Glucose Oxyhemoglobin 93.8 L Carboxyhemoglobin Sodium Potassium Chloride Carbon Dioxide BUN Creatinine Glucose POC Glucose 122 H 129 H Lactic Acid Calcium Magnesium Ferritin Total Bilirubin Direct Bilirubin AST ALT Alkaline Phosphatase Lactate Dehydrogenase C-Reactive Protein Total Protein Albumin Triglycerides Lipase Arterial Blood Glucose Arterial Blood Ionized Calcium Urine WBC (Auto) Coronavirus (PCR) SARS-CoV-2 IgG Ab Crossmatch 06/21/20 06/21/20 06/21/20 11:00 11:00 11:42 WBC 14.2 H RBC 1.85 L Hgb 6.2 L Hct 19.5 L* MCV 105 H MCH 34 H MCHC RDW 18.0 H Lymph % (Auto) Lymph # (Auto) Elliott # (Auto) Baso # (Auto) Seg Neutrophils % Seg Neuts % (Manual) Lymphocytes % (Manual) Nucleated RBC % Seg Neutrophils # Seg Neutrophils # Man Lymphocytes # (Manual) Monocytes # (Manual) Eosinophils # (Manual) PT INR APTT D-Dimer Heparin Anti-Xa Level ABG pH POC ABG pCO2 POC ABG pO2 ABG pO2 ABG HCO3 ABG O2 Saturation ABG Base Excess ABG Hemoglobin ABG Oxyhemoglobin ABG Sodium ABG Potassium ABG Chloride ABG Glucose Oxyhemoglobin Carboxyhemoglobin Sodium 147 H Potassium Chloride Carbon Dioxide 51 H* BUN 31 H Creatinine 0.5 L Glucose 224 H POC Glucose 217 H Lactic Acid Calcium Magnesium Ferritin Total Bilirubin Direct Bilirubin AST ALT Alkaline Phosphatase Lactate Dehydrogenase C-Reactive Protein Total Protein Albumin Triglycerides Lipase Arterial Blood Glucose Arterial Blood Ionized Calcium Urine WBC (Auto) Coronavirus (PCR) SARS-CoV-2 IgG Ab Crossmatch 06/21/20 06/21/20 06/21/20 14:18 14:30 18:36 WBC RBC Hgb Hct MCV MCH MCHC RDW Lymph % (Auto) Lymph # (Auto) [place] # (Auto) Baso # (Auto) Seg Neutrophils % Seg Neuts % (Manual) Lymphocytes % (Manual) Nucleated RBC % Seg Neutrophils # Seg Neutrophils # Man Lymphocytes # (Manual) Monocytes # (Manual) Eosinophils # (Manual) PT 15.1 H INR 1.19 H APTT D-Dimer Heparin Anti-Xa Level ABG pH POC ABG pCO2 POC ABG pO2 ABG pO2 ABG HCO3 ABG O2 Saturation ABG Base Excess ABG Hemoglobin ABG Oxyhemoglobin ABG Sodium ABG Potassium ABG Chloride ABG Glucose Oxyhemoglobin Carboxyhemoglobin Sodium Potassium Chloride Carbon Dioxide BUN Creatinine Glucose POC Glucose 185 H Lactic Acid Calcium Magnesium Ferritin Total Bilirubin Direct Bilirubin AST ALT Alkaline Phosphatase Lactate Dehydrogenase C-Reactive Protein Total Protein Albumin Triglycerides Lipase Arterial Blood Glucose Arterial Blood Ionized Calcium Urine WBC (Auto) Coronavirus (PCR) SARS-CoV-2 IgG Ab Crossmatch See Detail 06/21/20 06/22/20 06/22/20 21:14 03:50 04:00 WBC RBC Hgb Hct MCV MCH MCHC RDW Lymph % (Auto) Lymph # (Auto) [place] # (Auto) Baso # (Auto) Seg Neutrophils % Seg Neuts % (Manual) Lymphocytes % (Manual) Nucleated RBC % Seg Neutrophils # Seg Neutrophils # Man Lymphocytes # (Manual) Monocytes # (Manual) Eosinophils # (Manual) PT INR APTT D-Dimer Heparin Anti-Xa Level ABG pH 7.451 H POC ABG pCO2 POC ABG pO2 ABG pO2 ABG HCO3 47.5 H ABG O2 Saturation ABG Base Excess 22.0 H ABG Hemoglobin < 5.1 L ABG Oxyhemoglobin ABG Sodium ABG Potassium ABG Chloride ABG Glucose Oxyhemoglobin 94.1 L Carboxyhemoglobin Sodium 149 H Potassium 3.5 L Chloride Carbon Dioxide 42 H* D BUN 34 H Creatinine 0.4 L Glucose 219 H POC Glucose 250 H Lactic Acid Calcium Magnesium Ferritin Total Bilirubin Direct Bilirubin AST ALT Alkaline Phosphatase Lactate Dehydrogenase C-Reactive Protein Total Protein Albumin Triglycerides Lipase Arterial Blood Glucose Arterial Blood Ionized Calcium Urine WBC (Auto) Coronavirus (PCR) SARS-CoV-2 IgG Ab Crossmatch 06/22/20 06/22/20 06/22/20 12:16 14:29 17:56 WBC RBC Hgb Hct MCV MCH MCHC RDW Lymph % (Auto) Lymph # (Auto) [place] # (Auto) Baso # (Auto) Seg Neutrophils % Seg Neuts % (Manual) Lymphocytes % (Manual) Nucleated RBC % Seg Neutrophils # Seg Neutrophils # Man Lymphocytes # (Manual) Monocytes # (Manual) Eosinophils # (Manual) PT 11.8 L INR APTT 23.5 L D-Dimer Heparin Anti-Xa Level ABG pH POC ABG pCO2 POC ABG pO2 ABG pO2 ABG HCO3 ABG O2 Saturation ABG Base Excess ABG Hemoglobin ABG Oxyhemoglobin ABG Sodium ABG Potassium ABG Chloride ABG Glucose Oxyhemoglobin Carboxyhemoglobin Sodium Potassium Chloride Carbon Dioxide BUN Creatinine Glucose POC Glucose 215 H 215 H Lactic Acid Calcium Magnesium Ferritin Total Bilirubin Direct Bilirubin AST ALT Alkaline Phosphatase Lactate Dehydrogenase C-Reactive Protein Total Protein Albumin Triglycerides Lipase Arterial Blood Glucose Arterial Blood Ionized Calcium Urine WBC (Auto) Coronavirus (PCR) SARS-CoV-2 IgG Ab Crossmatch 06/22/20 06/22/20 06/22/20 23:36 23:45 Unknown WBC 14.1 H RBC 2.70 L Hgb 8.9 L 8.9 L Hct 26.9 L 27.2 L D MCV 101 H MCH 33 H MCHC RDW 17.7 H Lymph % (Auto) Lymph # (Auto) Elliott # (Auto) Baso # (Auto) Seg Neutrophils % Seg Neuts % (Manual) 92.0 H Lymphocytes % (Manual) 5.0 L Nucleated RBC % Seg Neutrophils # Seg Neutrophils # Man 13.0 H Lymphocytes # (Manual) 0.7 L Monocytes # (Manual) Eosinophils # (Manual) PT INR APTT D-Dimer Heparin Anti-Xa Level ABG pH POC ABG pCO2 POC ABG pO2 ABG pO2 ABG HCO3 ABG O2 Saturation ABG Base Excess ABG Hemoglobin ABG Oxyhemoglobin ABG Sodium ABG Potassium ABG Chloride ABG Glucose Oxyhemoglobin Carboxyhemoglobin Sodium Potassium Chloride Carbon Dioxide BUN Creatinine Glucose POC Glucose 208 H Lactic Acid Calcium Magnesium Ferritin Total Bilirubin Direct Bilirubin AST ALT Alkaline Phosphatase Lactate Dehydrogenase C-Reactive Protein Total Protein Albumin Triglycerides Lipase Arterial Blood Glucose Arterial Blood Ionized Calcium Urine WBC (Auto) Coronavirus (PCR) SARS-CoV-2 IgG Ab Crossmatch 06/23/20 06/23/20 06/23/20 05:17 05:19 06:50 WBC RBC Hgb Hct MCV MCH MCHC RDW Lymph % (Auto) Lymph # (Auto) [place] # (Auto) Baso # (Auto) Seg Neutrophils % Seg Neuts % (Manual) Lymphocytes % (Manual) Nucleated RBC % Seg Neutrophils # Seg Neutrophils # Man Lymphocytes # (Manual) Monocytes # (Manual) Eosinophils # (Manual) PT INR APTT D-Dimer Heparin Anti-Xa Level ABG pH POC ABG pCO2 69.7 H POC ABG pO2 63.3 L ABG pO2 ABG HCO3 ABG O2 Saturation ABG Base Excess ABG Hemoglobin 10.1 L ABG Oxyhemoglobin ABG Sodium ABG Potassium 3.3 L ABG Chloride ABG Glucose 226 H Oxyhemoglobin Carboxyhemoglobin Sodium Potassium 3.0 L Chloride Carbon Dioxide 41 H* BUN 26 H Creatinine 0.4 L Glucose 209 H POC Glucose 200 H Lactic Acid Calcium Magnesium Ferritin Total Bilirubin Direct Bilirubin AST ALT Alkaline Phosphatase Lactate Dehydrogenase C-Reactive Protein Total Protein Albumin 2.9 L Triglycerides Lipase Arterial Blood Glucose 226 H Arterial Blood Ionized Calcium Urine WBC (Auto) Coronavirus (PCR) SARS-CoV-2 IgG Ab Crossmatch 06/23/20 06/23/20 06/23/20 09:41 12:04 18:16 WBC RBC Hgb 9.1 L Hct 28.0 L MCV MCH MCHC RDW Lymph % (Auto) Lymph # (Auto) [place] # (Auto) Baso # (Auto) Seg Neutrophils % Seg Neuts % (Manual) Lymphocytes % (Manual) Nucleated RBC % Seg Neutrophils # Seg Neutrophils # Man Lymphocytes # (Manual) Monocytes # (Manual) Eosinophils # (Manual) PT INR APTT D-Dimer Heparin Anti-Xa Level ABG pH POC ABG pCO2 POC ABG pO2 ABG pO2 ABG HCO3 ABG O2 Saturation ABG Base Excess ABG Hemoglobin ABG Oxyhemoglobin ABG Sodium ABG Potassium ABG Chloride ABG Glucose Oxyhemoglobin Carboxyhemoglobin Sodium Potassium Chloride Carbon Dioxide BUN Creatinine Glucose POC Glucose 146 H 162 H Lactic Acid Calcium Magnesium Ferritin Total Bilirubin Direct Bilirubin AST ALT Alkaline Phosphatase Lactate Dehydrogenase C-Reactive Protein Total Protein Albumin Triglycerides Lipase Arterial Blood Glucose Arterial Blood Ionized Calcium Urine WBC (Auto) Coronavirus (PCR) SARS-CoV-2 IgG Ab Crossmatch 06/23/20 06/23/20 06/24/20 23:24 23:41 02:39 WBC RBC Hgb 8.2 L 8.8 L Hct 24.9 L 26.8 L MCV MCH MCHC RDW Lymph % (Auto) Lymph # (Auto) [place] # (Auto) Baso # (Auto) Seg Neutrophils % Seg Neuts % (Manual) Lymphocytes % (Manual) Nucleated RBC % Seg Neutrophils # Seg Neutrophils # Man Lymphocytes # (Manual) Monocytes # (Manual) Eosinophils # (Manual) PT INR APTT D-Dimer Heparin Anti-Xa Level ABG pH POC ABG pCO2 POC ABG pO2 ABG pO2 ABG HCO3 ABG O2 Saturation ABG Base Excess ABG Hemoglobin ABG Oxyhemoglobin ABG Sodium ABG Potassium ABG Chloride ABG Glucose Oxyhemoglobin Carboxyhemoglobin Sodium Potassium Chloride Carbon Dioxide BUN Creatinine Glucose POC Glucose 248 H Lactic Acid Calcium Magnesium Ferritin Total Bilirubin Direct Bilirubin AST ALT Alkaline Phosphatase Lactate Dehydrogenase C-Reactive Protein Total Protein Albumin Triglycerides Lipase Arterial Blood Glucose Arterial Blood Ionized Calcium Urine WBC (Auto) Coronavirus (PCR) SARS-CoV-2 IgG Ab Crossmatch 06/24/20 06/24/20 06/24/20 02:39 02:45 05:31 WBC RBC Hgb Hct MCV MCH MCHC RDW Lymph % (Auto) Lymph # (Auto) [place] # (Auto) Baso # (Auto) Seg Neutrophils % Seg Neuts % (Manual) Lymphocytes % (Manual) Nucleated RBC % Seg Neutrophils # Seg Neutrophils # Man Lymphocytes # (Manual) Monocytes # (Manual) Eosinophils # (Manual) PT INR APTT D-Dimer Heparin Anti-Xa Level ABG pH POC ABG pCO2 66.9 H POC ABG pO2 109.7 H ABG pO2 ABG HCO3 ABG O2 Saturation ABG Base Excess ABG Hemoglobin 9.7 L ABG Oxyhemoglobin ABG Sodium 135.0 L ABG Potassium ABG Chloride 97.0 L ABG Glucose 277 H Oxyhemoglobin Carboxyhemoglobin Sodium 136 L Potassium Chloride 95.0 L Carbon Dioxide 34 H D BUN 24 H Creatinine 0.3 L Glucose 260 H POC Glucose 164 H Lactic Acid Calcium Magnesium Ferritin Total Bilirubin Direct Bilirubin AST ALT Alkaline Phosphatase Lactate Dehydrogenase C-Reactive Protein Total Protein 5.2 L Albumin 2.6 L Triglycerides Lipase Arterial Blood Glucose 277 H Arterial Blood Ionized Calcium Urine WBC (Auto) Coronavirus (PCR) SARS-CoV-2 IgG Ab Crossmatch 06/24/20 06/24/20 06/24/20 10:00 11:49 17:39 WBC RBC Hgb 8.9 L Hct 26.5 L MCV MCH MCHC RDW Lymph % (Auto) Lymph # (Auto) [place] # (Auto) Baso # (Auto) Seg Neutrophils % Seg Neuts % (Manual) Lymphocytes % (Manual) Nucleated RBC % Seg Neutrophils # Seg Neutrophils # Man Lymphocytes # (Manual) Monocytes # (Manual) Eosinophils # (Manual) PT INR APTT D-Dimer Heparin Anti-Xa Level ABG pH POC ABG pCO2 POC ABG pO2 ABG pO2 ABG HCO3 ABG O2 Saturation ABG Base Excess ABG Hemoglobin ABG Oxyhemoglobin ABG Sodium ABG Potassium ABG Chloride ABG Glucose Oxyhemoglobin Carboxyhemoglobin Sodium Potassium Chloride Carbon Dioxide BUN Creatinine Glucose POC Glucose 198 H 223 H Lactic Acid Calcium Magnesium Ferritin Total Bilirubin Direct Bilirubin AST ALT Alkaline Phosphatase Lactate Dehydrogenase C-Reactive Protein Total Protein Albumin Triglycerides Lipase Arterial Blood Glucose Arterial Blood Ionized Calcium Urine WBC (Auto) Coronavirus (PCR) SARS-CoV-2 IgG Ab Crossmatch 06/24/20 06/25/20 06/25/20 23:56 02:16 04:08 WBC RBC Hgb Hct MCV MCH MCHC RDW Lymph % (Auto) Lymph # (Auto) [place] # (Auto) Baso # (Auto) Seg Neutrophils % Seg Neuts % (Manual) Lymphocytes % (Manual) Nucleated RBC % Seg Neutrophils # Seg Neutrophils # Man Lymphocytes # (Manual) Monocytes # (Manual) Eosinophils # (Manual) PT INR APTT D-Dimer Heparin Anti-Xa Level ABG pH 7.454 H POC ABG pCO2 56.9 H POC ABG pO2 61.0 L ABG pO2 ABG HCO3 ABG O2 Saturation ABG Base Excess ABG Hemoglobin ABG Oxyhemoglobin ABG Sodium 134.3 L ABG Potassium ABG Chloride 92.0 L ABG Glucose 246 H Oxyhemoglobin Carboxyhemoglobin Sodium 134 L Potassium Chloride 89.7 L Carbon Dioxide 36 H BUN Creatinine 0.3 L Glucose 254 H POC Glucose 225 H Lactic Acid Calcium Magnesium Ferritin Total Bilirubin Direct Bilirubin AST ALT Alkaline Phosphatase Lactate Dehydrogenase C-Reactive Protein Total Protein Albumin 2.9 L Triglycerides Lipase Arterial Blood Glucose 246 H Arterial Blood Ionized Calcium Urine WBC (Auto) Coronavirus (PCR) SARS-CoV-2 IgG Ab Crossmatch 06/25/20 06/25/20 06/25/20 05:44 11:35 17:33 WBC RBC Hgb Hct MCV MCH MCHC RDW Lymph % (Auto) Lymph # (Auto) [place] # (Auto) Baso # (Auto) Seg Neutrophils % Seg Neuts % (Manual) Lymphocytes % (Manual) Nucleated RBC % Seg Neutrophils # Seg Neutrophils # Man Lymphocytes # (Manual) Monocytes # (Manual) Eosinophils # (Manual) PT INR APTT D-Dimer Heparin Anti-Xa Level ABG pH POC ABG pCO2 POC ABG pO2 ABG pO2 ABG HCO3 ABG O2 Saturation ABG Base Excess ABG Hemoglobin ABG Oxyhemoglobin ABG Sodium ABG Potassium ABG Chloride ABG Glucose Oxyhemoglobin Carboxyhemoglobin Sodium Potassium Chloride Carbon Dioxide BUN Creatinine Glucose POC Glucose 170 H 175 H 229 H Lactic Acid Calcium Magnesium Ferritin Total Bilirubin Direct Bilirubin AST ALT Alkaline Phosphatase Lactate Dehydrogenase C-Reactive Protein Total Protein Albumin Triglycerides Lipase Arterial Blood Glucose Arterial Blood Ionized Calcium Urine WBC (Auto) Coronavirus (PCR) SARS-CoV-2 IgG Ab Crossmatch 06/25/20 06/26/20 06/26/20 23:55 02:17 02:17 WBC RBC Hgb 10.0 L Hct 30.4 L MCV MCH MCHC RDW Lymph % (Auto) Lymph # (Auto) [place] # (Auto) Baso # (Auto) Seg Neutrophils % Seg Neuts % (Manual) Lymphocytes % (Manual) Nucleated RBC % Seg Neutrophils # Seg Neutrophils # Man Lymphocytes # (Manual) Monocytes # (Manual) Eosinophils # (Manual) PT INR APTT D-Dimer Heparin Anti-Xa Level ABG pH POC ABG pCO2 POC ABG pO2 ABG pO2 ABG HCO3 ABG O2 Saturation ABG Base Excess ABG Hemoglobin ABG Oxyhemoglobin ABG Sodium ABG Potassium ABG Chloride ABG Glucose Oxyhemoglobin Carboxyhemoglobin Sodium 136 L Potassium Chloride 90.1 L Carbon Dioxide 39 H BUN Creatinine 0.2 L Glucose 232 H POC Glucose 192 H Lactic Acid Calcium Magnesium Ferritin Total Bilirubin Direct Bilirubin AST ALT Alkaline Phosphatase Lactate Dehydrogenase C-Reactive Protein Total Protein 6.1 L Albumin 2.9 L Triglycerides Lipase Arterial Blood Glucose Arterial Blood Ionized Calcium Urine WBC (Auto) Coronavirus (PCR) SARS-CoV-2 IgG Ab Crossmatch 06/26/20 06/26/20 06/26/20 04:15 04:49 05:28 WBC RBC Hgb Hct MCV MCH MCHC RDW Lymph % (Auto) Lymph # (Auto) [place] # (Auto) Baso # (Auto) Seg Neutrophils % Seg Neuts % (Manual) Lymphocytes % (Manual) Nucleated RBC % Seg Neutrophils # Seg Neutrophils # Man Lymphocytes # (Manual) Monocytes # (Manual) Eosinophils # (Manual) PT INR APTT D-Dimer Heparin Anti-Xa Level ABG pH 7.453 H POC ABG pCO2 59.6 H POC ABG pO2 ABG pO2 ABG HCO3 ABG O2 Saturation ABG Base Excess ABG Hemoglobin 10.0 L ABG Oxyhemoglobin ABG Sodium 134.2 L ABG Potassium 3.3 L ABG Chloride 92.0 L ABG Glucose 305 H Oxyhemoglobin Carboxyhemoglobin Sodium Potassium Chloride Carbon Dioxide BUN Creatinine Glucose POC Glucose 234 H Lactic Acid Calcium Magnesium Ferritin Total Bilirubin Direct Bilirubin AST ALT Alkaline Phosphatase Lactate Dehydrogenase C-Reactive Protein Total Protein Albumin Triglycerides 203 H Lipase Arterial Blood Glucose 305 H Arterial Blood Ionized Calcium Urine WBC (Auto) Coronavirus (PCR) SARS-CoV-2 IgG Ab Crossmatch 06/26/20 06/26/20 06/26/20 11:58 17:58 21:32 WBC RBC Hgb Hct MCV MCH MCHC RDW Lymph % (Auto) Lymph # (Auto) [place] # (Auto) Baso # (Auto) Seg Neutrophils % Seg Neuts % (Manual) Lymphocytes % (Manual) Nucleated RBC % Seg Neutrophils # Seg Neutrophils # Man Lymphocytes # (Manual) Monocytes # (Manual) Eosinophils # (Manual) PT INR APTT D-Dimer Heparin Anti-Xa Level ABG pH POC ABG pCO2 POC ABG pO2 ABG pO2 ABG HCO3 ABG O2 Saturation ABG Base Excess ABG Hemoglobin ABG Oxyhemoglobin ABG Sodium ABG Potassium ABG Chloride ABG Glucose Oxyhemoglobin Carboxyhemoglobin Sodium Potassium Chloride Carbon Dioxide BUN Creatinine Glucose POC Glucose 198 H 193 H 191 H Lactic Acid Calcium Magnesium Ferritin Total Bilirubin Direct Bilirubin AST ALT Alkaline Phosphatase Lactate Dehydrogenase C-Reactive Protein Total Protein Albumin Triglycerides Lipase Arterial Blood Glucose Arterial Blood Ionized Calcium Urine WBC (Auto) Coronavirus (PCR) SARS-CoV-2 IgG Ab Crossmatch 06/26/20 06/27/20 06/27/20 23:40 04:35 05:32 WBC RBC Hgb Hct MCV MCH MCHC RDW Lymph % (Auto) Lymph # (Auto) [place] # (Auto) Baso # (Auto) Seg Neutrophils % Seg Neuts % (Manual) Lymphocytes % (Manual) Nucleated RBC % Seg Neutrophils # Seg Neutrophils # Man Lymphocytes # (Manual) Monocytes # (Manual) Eosinophils # (Manual) PT INR APTT D-Dimer Heparin Anti-Xa Level ABG pH 7.464 H POC ABG pCO2 60.8 H POC ABG pO2 ABG pO2 ABG HCO3 ABG O2 Saturation ABG Base Excess ABG Hemoglobin 10.1 L ABG Oxyhemoglobin ABG Sodium ABG Potassium 2.9 L ABG Chloride 92.0 L ABG Glucose 298 H Oxyhemoglobin Carboxyhemoglobin Sodium Potassium Chloride Carbon Dioxide BUN Creatinine Glucose POC Glucose 241 H 211 H Lactic Acid Calcium Magnesium Ferritin Total Bilirubin Direct Bilirubin AST ALT Alkaline Phosphatase Lactate Dehydrogenase C-Reactive Protein Total Protein Albumin Triglycerides Lipase Arterial Blood Glucose 298 H Arterial Blood Ionized Calcium Urine WBC (Auto) Coronavirus (PCR) SARS-CoV-2 IgG Ab Crossmatch 06/27/20 06/27/20 06/27/20 12:37 18:08 20:52 WBC RBC Hgb Hct MCV MCH MCHC RDW Lymph % (Auto) Lymph # (Auto) [place] # (Auto) Baso # (Auto) Seg Neutrophils % Seg Neuts % (Manual) Lymphocytes % (Manual) Nucleated RBC % Seg Neutrophils # Seg Neutrophils # Man Lymphocytes # (Manual) Monocytes # (Manual) Eosinophils # (Manual) PT INR APTT D-Dimer Heparin Anti-Xa Level ABG pH POC ABG pCO2 POC ABG pO2 ABG pO2 ABG HCO3 ABG O2 Saturation ABG Base Excess ABG Hemoglobin ABG Oxyhemoglobin ABG Sodium ABG Potassium ABG Chloride ABG Glucose Oxyhemoglobin Carboxyhemoglobin Sodium Potassium Chloride Carbon Dioxide BUN Creatinine Glucose POC Glucose 182 H 197 H 195 H Lactic Acid Calcium Magnesium Ferritin Total Bilirubin Direct Bilirubin AST ALT Alkaline Phosphatase Lactate Dehydrogenase C-Reactive Protein Total Protein Albumin Triglycerides Lipase Arterial Blood Glucose Arterial Blood Ionized Calcium Urine WBC (Auto) Coronavirus (PCR) SARS-CoV-2 IgG Ab Crossmatch 06/27/20 06/28/20 06/28/20 Unknown 04:17 04:50 WBC RBC Hgb Hct MCV MCH MCHC RDW Lymph % (Auto) Lymph # (Auto) [place] # (Auto) Baso # (Auto) Seg Neutrophils % Seg Neuts % (Manual) Lymphocytes % (Manual) Nucleated RBC % Seg Neutrophils # Seg Neutrophils # Man Lymphocytes # (Manual) Monocytes # (Manual) Eosinophils # (Manual) PT INR APTT D-Dimer Heparin Anti-Xa Level ABG pH POC ABG pCO2 58.6 H POC ABG pO2 60.1 L ABG pO2 ABG HCO3 ABG O2 Saturation ABG Base Excess ABG Hemoglobin 10.0 L ABG Oxyhemoglobin ABG Sodium 125.3 L ABG Potassium ABG Chloride 93.0 L ABG Glucose 308 H Oxyhemoglobin Carboxyhemoglobin Sodium Potassium 2.9 L* Chloride 93.4 L Carbon Dioxide 42 H* BUN Creatinine 0.3 L Glucose 211 H POC Glucose 252 H Lactic Acid Calcium 8.1 L Magnesium Ferritin Total Bilirubin Direct Bilirubin AST ALT Alkaline Phosphatase Lactate Dehydrogenase C-Reactive Protein Total Protein 5.1 L Albumin 2.4 L Triglycerides Lipase Arterial Blood Glucose 308 H Arterial Blood Ionized Calcium Urine WBC (Auto) Coronavirus (PCR) SARS-CoV-2 IgG Ab Crossmatch 06/28/20 06/28/20 06/28/20 06:35 06:35 11:36 WBC 18.9 H RBC 2.85 L Hgb 9.5 L Hct 28.4 L MCV 100 H MCH 33 H MCHC RDW 17.3 H Lymph % (Auto) Lymph # (Auto) [place] # (Auto) Baso # (Auto) Seg Neutrophils % 88.6 H Seg Neuts % (Manual) 95.0 H Lymphocytes % (Manual) 1.0 L Nucleated RBC % Seg Neutrophils # 15.9 H Seg Neutrophils # Man 18.0 H Lymphocytes # (Manual) 0.2 L Monocytes # (Manual) Eosinophils # (Manual) PT INR APTT D-Dimer Heparin Anti-Xa Level ABG pH POC ABG pCO2 POC ABG pO2 ABG pO2 ABG HCO3 ABG O2 Saturation ABG Base Excess ABG Hemoglobin ABG Oxyhemoglobin ABG Sodium ABG Potassium ABG Chloride ABG Glucose Oxyhemoglobin Carboxyhemoglobin Sodium Potassium Chloride 94.2 L Carbon Dioxide 38 H BUN Creatinine 0.3 L Glucose 228 H POC Glucose 243 H Lactic Acid Calcium Magnesium Ferritin Total Bilirubin Direct Bilirubin AST ALT Alkaline Phosphatase Lactate Dehydrogenase C-Reactive Protein Total Protein 6.1 L Albumin 2.7 L Triglycerides Lipase Arterial Blood Glucose Arterial Blood Ionized Calcium Urine WBC (Auto) Coronavirus (PCR) SARS-CoV-2 IgG Ab Crossmatch 06/28/20 06/28/20 06/29/20 16:53 21:10 00:06 WBC RBC Hgb Hct MCV MCH MCHC RDW Lymph % (Auto) Lymph # (Auto) Elliott # (Auto) Baso # (Auto) Seg Neutrophils % Seg Neuts % (Manual) Lymphocytes % (Manual) Nucleated RBC % Seg Neutrophils # Seg Neutrophils # Man Lymphocytes # (Manual) Monocytes # (Manual) Eosinophils # (Manual) PT INR APTT D-Dimer Heparin Anti-Xa Level ABG pH POC ABG pCO2 POC ABG pO2 ABG pO2 ABG HCO3 ABG O2 Saturation ABG Base Excess ABG Hemoglobin ABG Oxyhemoglobin ABG Sodium ABG Potassium ABG Chloride ABG Glucose Oxyhemoglobin Carboxyhemoglobin Sodium Potassium Chloride Carbon Dioxide BUN Creatinine Glucose POC Glucose 211 H 195 H 200 H Lactic Acid Calcium Magnesium Ferritin Total Bilirubin Direct Bilirubin AST ALT Alkaline Phosphatase Lactate Dehydrogenase C-Reactive Protein Total Protein Albumin Triglycerides Lipase Arterial Blood Glucose Arterial Blood Ionized Calcium Urine WBC (Auto) Coronavirus (PCR) SARS-CoV-2 IgG Ab Crossmatch 06/29/20 06/29/20 06/29/20 03:11 04:00 04:00 WBC 18.8 H RBC 2.82 L Hgb 10.1 L Hct 28.5 L MCV 101 H MCH 36 H MCHC 36 H RDW 17.5 H Lymph % (Auto) 10.7 L Lymph # (Auto) Elliott # (Auto) 1.0 H Baso # (Auto) 0.3 H Seg Neutrophils % 82.2 H Seg Neuts % (Manual) Lymphocytes % (Manual) Nucleated RBC % Seg Neutrophils # 15.5 H Seg Neutrophils # Man Lymphocytes # (Manual) Monocytes # (Manual) Eosinophils # (Manual) PT INR APTT D-Dimer Heparin Anti-Xa Level ABG pH POC ABG pCO2 57.5 H POC ABG pO2 69.1 L ABG pO2 ABG HCO3 ABG O2 Saturation ABG Base Excess ABG Hemoglobin 10.2 L ABG Oxyhemoglobin 92.3 L ABG Sodium 130.7 L ABG Potassium 3.2 L ABG Chloride 93.0 L ABG Glucose 228 H Oxyhemoglobin Carboxyhemoglobin Sodium 134 L Potassium 3.3 L Chloride 89.5 L Carbon Dioxide 40 H BUN Creatinine 0.2 L Glucose 190 H POC Glucose Lactic Acid Calcium Magnesium Ferritin Total Bilirubin Direct Bilirubin AST < 5 L ALT < 5 L Alkaline Phosphatase Lactate Dehydrogenase C-Reactive Protein Total Protein 5.9 L Albumin 2.2 L Triglycerides Lipase Arterial Blood Glucose 228 H Arterial Blood Ionized Calcium Urine WBC (Auto) Coronavirus (PCR) SARS-CoV-2 IgG Ab Crossmatch 06/29/20 06/29/20 06/29/20 05:00 05:23 09:36 WBC RBC Hgb Hct MCV MCH MCHC RDW Lymph % (Auto) Lymph # (Auto) Elliott # (Auto) Baso # (Auto) Seg Neutrophils % Seg Neuts % (Manual) Lymphocytes % (Manual) Nucleated RBC % Seg Neutrophils # Seg Neutrophils # Man Lymphocytes # (Manual) Monocytes # (Manual) Eosinophils # (Manual) PT INR APTT D-Dimer Heparin Anti-Xa Level ABG pH POC ABG pCO2 POC ABG pO2 ABG pO2 ABG HCO3 ABG O2 Saturation ABG Base Excess ABG Hemoglobin ABG Oxyhemoglobin ABG Sodium ABG Potassium ABG Chloride ABG Glucose Oxyhemoglobin Carboxyhemoglobin Sodium Potassium Chloride Carbon Dioxide BUN Creatinine Glucose POC Glucose 165 H Lactic Acid Calcium Magnesium Ferritin Total Bilirubin Direct Bilirubin AST ALT Alkaline Phosphatase Lactate Dehydrogenase C-Reactive Protein Total Protein Albumin Triglycerides 1544 H 1799 H Lipase Arterial Blood Glucose Arterial Blood Ionized Calcium Urine WBC (Auto) Coronavirus (PCR) SARS-CoV-2 IgG Ab Crossmatch 06/29/20 06/29/20 06/29/20 09:36 12:02 18:00 WBC RBC Hgb Hct MCV MCH MCHC RDW Lymph % (Auto) Lymph # (Auto) Elliott # (Auto) Baso # (Auto) Seg Neutrophils % Seg Neuts % (Manual) Lymphocytes % (Manual) Nucleated RBC % Seg Neutrophils # Seg Neutrophils # Man Lymphocytes # (Manual) Monocytes # (Manual) Eosinophils # (Manual) PT INR APTT D-Dimer Heparin Anti-Xa Level ABG pH POC ABG pCO2 POC ABG pO2 ABG pO2 ABG HCO3 ABG O2 Saturation ABG Base Excess ABG Hemoglobin ABG Oxyhemoglobin ABG Sodium ABG Potassium ABG Chloride ABG Glucose Oxyhemoglobin Carboxyhemoglobin Sodium Potassium Chloride Carbon Dioxide BUN Creatinine Glucose POC Glucose 197 H 187 H Lactic Acid Calcium Magnesium Ferritin Total Bilirubin Direct Bilirubin AST ALT Alkaline Phosphatase Lactate Dehydrogenase C-Reactive Protein Total Protein Albumin Triglycerides Lipase 86 H Arterial Blood Glucose Arterial Blood Ionized Calcium Urine WBC (Auto) Coronavirus (PCR) SARS-CoV-2 IgG Ab Crossmatch 06/29/20 06/30/20 06/30/20 23:33 03:46 05:50 WBC RBC Hgb Hct MCV MCH MCHC RDW Lymph % (Auto) Lymph # (Auto) Elliott # (Auto) Baso # (Auto) Seg Neutrophils % Seg Neuts % (Manual) Lymphocytes % (Manual) Nucleated RBC % Seg Neutrophils # Seg Neutrophils # Man Lymphocytes # (Manual) Monocytes # (Manual) Eosinophils # (Manual) PT INR APTT D-Dimer Heparin Anti-Xa Level ABG pH 7.466 H POC ABG pCO2 57.3 H POC ABG pO2 66.1 L ABG pO2 ABG HCO3 ABG O2 Saturation ABG Base Excess ABG Hemoglobin 10.2 L ABG Oxyhemoglobin 92.3 L ABG Sodium 134.4 L ABG Potassium 3.2 L ABG Chloride 94.0 L ABG Glucose 178 H Oxyhemoglobin Carboxyhemoglobin Sodium Potassium Chloride Carbon Dioxide BUN Creatinine Glucose POC Glucose 170 H 170 H Lactic Acid Calcium Magnesium Ferritin Total Bilirubin Direct Bilirubin AST ALT Alkaline Phosphatase Lactate Dehydrogenase C-Reactive Protein Total Protein Albumin Triglycerides Lipase Arterial Blood Glucose 178 H Arterial Blood Ionized Calcium Urine WBC (Auto) Coronavirus (PCR) SARS-CoV-2 IgG Ab Crossmatch 06/30/20 06/30/20 06/30/20 07:00 07:00 12:04 WBC 15.6 H RBC 2.91 L Hgb 9.8 L Hct 29.7 L MCV 102 H MCH 34 H MCHC RDW 17.8 H Lymph % (Auto) Lymph # (Auto) Elliott # (Auto) Baso # (Auto) Seg Neutrophils % Seg Neuts % (Manual) Lymphocytes % (Manual) 5.0 L Nucleated RBC % Seg Neutrophils # Seg Neutrophils # Man 14.8 H Lymphocytes # (Manual) 0.8 L Monocytes # (Manual) Eosinophils # (Manual) PT INR APTT D-Dimer Heparin Anti-Xa Level ABG pH POC ABG pCO2 POC ABG pO2 ABG pO2 ABG HCO3 ABG O2 Saturation ABG Base Excess ABG Hemoglobin ABG Oxyhemoglobin ABG Sodium ABG Potassium ABG Chloride ABG Glucose Oxyhemoglobin Carboxyhemoglobin Sodium Potassium Chloride 93.3 L Carbon Dioxide 43 H* BUN Creatinine 0.3 L Glucose 260 H POC Glucose 245 H Lactic Acid Calcium Magnesium Ferritin Total Bilirubin Direct Bilirubin AST ALT Alkaline Phosphatase Lactate Dehydrogenase C-Reactive Protein Total Protein Albumin 2.8 L Triglycerides 452 H Lipase Arterial Blood Glucose Arterial Blood Ionized Calcium Urine WBC (Auto) Coronavirus (PCR) SARS-CoV-2 IgG Ab Crossmatch 06/30/20 07/01/20 07/01/20 17:32 00:02 05:02 WBC RBC Hgb Hct MCV MCH MCHC RDW Lymph % (Auto) Lymph # (Auto) Elliott # (Auto) Baso # (Auto) Seg Neutrophils % Seg Neuts % (Manual) Lymphocytes % (Manual) Nucleated RBC % Seg Neutrophils # Seg Neutrophils # Man Lymphocytes # (Manual) Monocytes # (Manual) Eosinophils # (Manual) PT INR APTT D-Dimer Heparin Anti-Xa Level ABG pH POC ABG pCO2 58.1 H POC ABG pO2 ABG pO2 ABG HCO3 ABG O2 Saturation ABG Base Excess ABG Hemoglobin 11.2 L ABG Oxyhemoglobin ABG Sodium 132.7 L ABG Potassium ABG Chloride 92.0 L ABG Glucose 238 H Oxyhemoglobin Carboxyhemoglobin Sodium Potassium Chloride Carbon Dioxide BUN Creatinine Glucose POC Glucose 209 H 208 H Lactic Acid Calcium Magnesium Ferritin Total Bilirubin Direct Bilirubin AST ALT Alkaline Phosphatase Lactate Dehydrogenase C-Reactive Protein Total Protein Albumin Triglycerides Lipase Arterial Blood Glucose 238 H Arterial Blood Ionized Calcium Urine WBC (Auto) Coronavirus (PCR) SARS-CoV-2 IgG Ab Crossmatch 07/01/20 07/01/20 07/01/20 06:16 06:41 06:41 WBC 18.1 H RBC 2.33 L Hgb 7.1 L Hct 21.3 L D MCV MCH MCHC RDW Lymph % (Auto) Lymph # (Auto) Elliott # (Auto) Baso # (Auto) Seg Neutrophils % Seg Neuts % (Manual) 82.0 H Lymphocytes % (Manual) 7.0 L Nucleated RBC % 1.0 H Seg Neutrophils # Seg Neutrophils # Man 14.8 H Lymphocytes # (Manual) Monocytes # (Manual) 1.1 H Eosinophils # (Manual) 0.5 H PT INR APTT D-Dimer Heparin Anti-Xa Level < 0.10 L ABG pH POC ABG pCO2 POC ABG pO2 ABG pO2 ABG HCO3 ABG O2 Saturation ABG Base Excess ABG Hemoglobin ABG Oxyhemoglobin ABG Sodium ABG Potassium ABG Chloride ABG Glucose Oxyhemoglobin Carboxyhemoglobin Sodium Potassium Chloride Carbon Dioxide BUN Creatinine Glucose POC Glucose 180 H Lactic Acid Calcium Magnesium Ferritin Total Bilirubin Direct Bilirubin AST ALT Alkaline Phosphatase Lactate Dehydrogenase C-Reactive Protein Total Protein Albumin Triglycerides Lipase Arterial Blood Glucose Arterial Blood Ionized Calcium Urine WBC (Auto) Coronavirus (PCR) SARS-CoV-2 IgG Ab Crossmatch 07/01/20 07/01/20 07/01/20 08:11 12:04 16:16 WBC RBC Hgb Hct MCV MCH MCHC RDW Lymph % (Auto) Lymph # (Auto) Elliott # (Auto) Baso # (Auto) Seg Neutrophils % Seg Neuts % (Manual) Lymphocytes % (Manual) Nucleated RBC % Seg Neutrophils # Seg Neutrophils # Man Lymphocytes # (Manual) Monocytes # (Manual) Eosinophils # (Manual) PT INR APTT D-Dimer Heparin Anti-Xa Level 1.02 H ABG pH POC ABG pCO2 POC ABG pO2 ABG pO2 ABG HCO3 ABG O2 Saturation ABG Base Excess ABG Hemoglobin ABG Oxyhemoglobin ABG Sodium ABG Potassium ABG Chloride ABG Glucose Oxyhemoglobin Carboxyhemoglobin Sodium 135 L Potassium 3.0 L Chloride 93.1 L Carbon Dioxide 40 H BUN Creatinine 0.3 L Glucose 140 H POC Glucose 223 H Lactic Acid Calcium Magnesium Ferritin Total Bilirubin Direct Bilirubin AST ALT Alkaline Phosphatase Lactate Dehydrogenase C-Reactive Protein Total Protein Albumin Triglycerides Lipase Arterial Blood Glucose Arterial Blood Ionized Calcium Urine WBC (Auto) Coronavirus (PCR) SARS-CoV-2 IgG Ab Crossmatch 07/01/20 07/01/20 07/02/20 17:09 23:19 00:56 WBC RBC Hgb Hct MCV MCH MCHC RDW Lymph % (Auto) Lymph # (Auto) Elliott # (Auto) Baso # (Auto) Seg Neutrophils % Seg Neuts % (Manual) Lymphocytes % (Manual) Nucleated RBC % Seg Neutrophils # Seg Neutrophils # Man Lymphocytes # (Manual) Monocytes # (Manual) Eosinophils # (Manual) PT INR APTT D-Dimer Heparin Anti-Xa Level 0.22 L ABG pH POC ABG pCO2 POC ABG pO2 ABG pO2 ABG HCO3 ABG O2 Saturation ABG Base Excess ABG Hemoglobin ABG Oxyhemoglobin ABG Sodium ABG Potassium ABG Chloride ABG Glucose Oxyhemoglobin Carboxyhemoglobin Sodium Potassium Chloride Carbon Dioxide BUN Creatinine Glucose POC Glucose 233 H 255 H Lactic Acid Calcium Magnesium Ferritin Total Bilirubin Direct Bilirubin AST ALT Alkaline Phosphatase Lactate Dehydrogenase C-Reactive Protein Total Protein Albumin Triglycerides Lipase Arterial Blood Glucose Arterial Blood Ionized Calcium Urine WBC (Auto) Coronavirus (PCR) SARS-CoV-2 IgG Ab Crossmatch 07/02/20 07/02/20 07/02/20 03:51 05:35 11:39 WBC RBC Hgb Hct MCV MCH MCHC RDW Lymph % (Auto) Lymph # (Auto) Elliott # (Auto) Baso # (Auto) Seg Neutrophils % Seg Neuts % (Manual) Lymphocytes % (Manual) Nucleated RBC % Seg Neutrophils # Seg Neutrophils # Man Lymphocytes # (Manual) Monocytes # (Manual) Eosinophils # (Manual) PT INR APTT D-Dimer Heparin Anti-Xa Level ABG pH POC ABG pCO2 54.9 H POC ABG pO2 52.1 L ABG pO2 ABG HCO3 ABG O2 Saturation ABG Base Excess ABG Hemoglobin 11.9 L ABG Oxyhemoglobin 82.8 L ABG Sodium 130.2 L ABG Potassium ABG Chloride 92.0 L ABG Glucose 249 H Oxyhemoglobin Carboxyhemoglobin 1.9 H Sodium Potassium Chloride Carbon Dioxide BUN Creatinine Glucose POC Glucose 205 H 235 H Lactic Acid Calcium Magnesium Ferritin Total Bilirubin Direct Bilirubin AST ALT Alkaline Phosphatase Lactate Dehydrogenase C-Reactive Protein Total Protein Albumin Triglycerides Lipase Arterial Blood Glucose 249 H Arterial Blood Ionized Calcium Urine WBC (Auto) Coronavirus (PCR) SARS-CoV-2 IgG Ab Crossmatch 07/02/20 07/02/20 07/02/20 16:08 16:08 17:54 WBC 19.8 H RBC 3.28 L Hgb 10.7 L D Hct 32.7 L D MCV 100 H MCH 33 H MCHC RDW 17.2 H Lymph % (Auto) Lymph # (Auto) Elliott # (Auto) Baso # (Auto) Seg Neutrophils % Seg Neuts % (Manual) Lymphocytes % (Manual) Nucleated RBC % Seg Neutrophils # Seg Neutrophils # Man Lymphocytes # (Manual) Monocytes # (Manual) Eosinophils # (Manual) PT INR APTT D-Dimer Heparin Anti-Xa Level ABG pH POC ABG pCO2 POC ABG pO2 ABG pO2 ABG HCO3 ABG O2 Saturation ABG Base Excess ABG Hemoglobin ABG Oxyhemoglobin ABG Sodium ABG Potassium ABG Chloride ABG Glucose Oxyhemoglobin Carboxyhemoglobin Sodium 136 L Potassium Chloride 92.4 L Carbon Dioxide 35 H BUN Creatinine 0.3 L Glucose 203 H POC Glucose 175 H Lactic Acid Calcium Magnesium Ferritin Total Bilirubin Direct Bilirubin AST ALT Alkaline Phosphatase Lactate Dehydrogenase C-Reactive Protein Total Protein Albumin Triglycerides Lipase Arterial Blood Glucose Arterial Blood Ionized Calcium Urine WBC (Auto) Coronavirus (PCR) SARS-CoV-2 IgG Ab Crossmatch 07/02/20 07/03/20 07/03/20 23:46 03:25 05:54 WBC RBC Hgb Hct MCV MCH MCHC RDW Lymph % (Auto) Lymph # (Auto) Elliott # (Auto) Baso # (Auto) Seg Neutrophils % Seg Neuts % (Manual) Lymphocytes % (Manual) Nucleated RBC % Seg Neutrophils # Seg Neutrophils # Man Lymphocytes # (Manual) Monocytes # (Manual) Eosinophils # (Manual) PT INR APTT D-Dimer Heparin Anti-Xa Level ABG pH 7.468 H POC ABG pCO2 51.5 H POC ABG pO2 ABG pO2 ABG HCO3 ABG O2 Saturation ABG Base Excess ABG Hemoglobin ABG Oxyhemoglobin ABG Sodium 130.2 L ABG Potassium ABG Chloride 91.0 L ABG Glucose 210 H Oxyhemoglobin Carboxyhemoglobin 1.6 H Sodium Potassium Chloride Carbon Dioxide BUN Creatinine Glucose POC Glucose 173 H 125 H Lactic Acid Calcium Magnesium Ferritin Total Bilirubin Direct Bilirubin AST ALT Alkaline Phosphatase Lactate Dehydrogenase C-Reactive Protein Total Protein Albumin Triglycerides Lipase Arterial Blood Glucose 210 H Arterial Blood Ionized Calcium Urine WBC (Auto) Coronavirus (PCR) SARS-CoV-2 IgG Ab Crossmatch 07/03/20 07/03/20 07/03/20 11:43 12:20 12:20 WBC 16.5 H RBC 3.13 L Hgb 10.4 L Hct 31.8 L MCV 102 H MCH 33 H MCHC RDW 17.2 H Lymph % (Auto) Lymph # (Auto) Elliott # (Auto) Baso # (Auto) Seg Neutrophils % Seg Neuts % (Manual) Lymphocytes % (Manual) Nucleated RBC % Seg Neutrophils # Seg Neutrophils # Man Lymphocytes # (Manual) Monocytes # (Manual) Eosinophils # (Manual) PT INR APTT D-Dimer Heparin Anti-Xa Level ABG pH POC ABG pCO2 POC ABG pO2 ABG pO2 ABG HCO3 ABG O2 Saturation ABG Base Excess ABG Hemoglobin ABG Oxyhemoglobin ABG Sodium ABG Potassium ABG Chloride ABG Glucose Oxyhemoglobin Carboxyhemoglobin Sodium 132 L Potassium Chloride 88.5 L Carbon Dioxide 37 H BUN Creatinine 0.3 L Glucose 230 H POC Glucose 223 H Lactic Acid Calcium Magnesium Ferritin Total Bilirubin Direct Bilirubin AST ALT Alkaline Phosphatase Lactate Dehydrogenase C-Reactive Protein Total Protein Albumin Triglycerides Lipase Arterial Blood Glucose Arterial Blood Ionized Calcium Urine WBC (Auto) Coronavirus (PCR) SARS-CoV-2 IgG Ab Crossmatch 07/03/20 07/03/20 07/04/20 17:24 21:41 00:54 WBC RBC Hgb Hct MCV MCH MCHC RDW Lymph % (Auto) Lymph # (Auto) Elliott # (Auto) Baso # (Auto) Seg Neutrophils % Seg Neuts % (Manual) Lymphocytes % (Manual) Nucleated RBC % Seg Neutrophils # Seg Neutrophils # Man Lymphocytes # (Manual) Monocytes # (Manual) Eosinophils # (Manual) PT INR APTT D-Dimer Heparin Anti-Xa Level ABG pH POC ABG pCO2 POC ABG pO2 ABG pO2 ABG HCO3 ABG O2 Saturation ABG Base Excess ABG Hemoglobin ABG Oxyhemoglobin ABG Sodium ABG Potassium ABG Chloride ABG Glucose Oxyhemoglobin Carboxyhemoglobin Sodium Potassium Chloride Carbon Dioxide BUN Creatinine Glucose POC Glucose 163 H 220 H 195 H Lactic Acid Calcium Magnesium Ferritin Total Bilirubin Direct Bilirubin AST ALT Alkaline Phosphatase Lactate Dehydrogenase C-Reactive Protein Total Protein Albumin Triglycerides Lipase Arterial Blood Glucose Arterial Blood Ionized Calcium Urine WBC (Auto) Coronavirus (PCR) SARS-CoV-2 IgG Ab Crossmatch 07/04/20 07/04/20 07/04/20 03:25 04:00 04:00 WBC 14.9 H RBC 2.91 L Hgb 9.5 L Hct 29.2 L MCV 100 H MCH 33 H MCHC RDW 16.7 H Lymph % (Auto) 8.4 L Lymph # (Auto) Elliott # (Auto) 1.1 H Baso # (Auto) Seg Neutrophils % 84.2 H Seg Neuts % (Manual) Lymphocytes % (Manual) Nucleated RBC % Seg Neutrophils # 12.6 H Seg Neutrophils # Man Lymphocytes # (Manual) Monocytes # (Manual) Eosinophils # (Manual) PT INR APTT D-Dimer Heparin Anti-Xa Level ABG pH 7.474 H POC ABG pCO2 POC ABG pO2 51.8 L ABG pO2 ABG HCO3 ABG O2 Saturation ABG Base Excess ABG Hemoglobin ABG Oxyhemoglobin ABG Sodium ABG Potassium ABG Chloride ABG Glucose Oxyhemoglobin Carboxyhemoglobin Sodium Potassium 3.4 L Chloride 92.1 L Carbon Dioxide 34 H BUN Creatinine 0.3 L Glucose 173 H POC Glucose Lactic Acid Calcium Magnesium Ferritin Total Bilirubin Direct Bilirubin AST ALT Alkaline Phosphatase Lactate Dehydrogenase C-Reactive Protein Total Protein Albumin Triglycerides Lipase Arterial Blood Glucose Arterial Blood Ionized Calcium Urine WBC (Auto) Coronavirus (PCR) SARS-CoV-2 IgG Ab Crossmatch 07/04/20 07/04/20 06:18 11:39 WBC RBC Hgb Hct MCV MCH MCHC RDW Lymph % (Auto) Lymph # (Auto) Elliott # (Auto) Baso # (Auto) Seg Neutrophils % Seg Neuts % (Manual) Lymphocytes % (Manual) Nucleated RBC % Seg Neutrophils # Seg Neutrophils # Man Lymphocytes # (Manual) Monocytes # (Manual) Eosinophils # (Manual) PT INR APTT D-Dimer Heparin Anti-Xa Level ABG pH POC ABG pCO2 POC ABG pO2 ABG pO2 ABG HCO3 ABG O2 Saturation ABG Base Excess ABG Hemoglobin ABG Oxyhemoglobin ABG Sodium ABG Potassium ABG Chloride ABG Glucose Oxyhemoglobin Carboxyhemoglobin Sodium Potassium Chloride Carbon Dioxide BUN Creatinine Glucose POC Glucose 158 H 257 H Lactic Acid Calcium Magnesium Ferritin Total Bilirubin Direct Bilirubin AST ALT Alkaline Phosphatase Lactate Dehydrogenase C-Reactive Protein Total Protein Albumin Triglycerides Lipase Arterial Blood Glucose Arterial Blood Ionized Calcium Urine WBC (Auto) Coronavirus (PCR) SARS-CoV-2 IgG Ab Crossmatch Chest x-ray: image reviewed (persistent bilateral infiltrates; tubes and lines in good position) Allied health notes reviewed: nursing
[2020-07-04] MEDS: PHENobarbital 32.4 MG TAB PO SCH (21:47)
[2020-07-04] MEDS: INSULIN GLARGINE 100 UNITS/ML SUB-Q SCH (21:47)
[2020-07-05] MEDS: INSULIN LISPRO 100 UNIT/ML VIAL 3 mL SUB-Q SCH ×4 (00:33→19:03)
[2020-07-05] MEDS: fentaNYL DRIP Premix 2,000 MCG/100 ML BAG IV SCH ×4 (02:42→17:21)
[2020-07-05] MEDS: NORepinephrine/NS 4 MG-250 ML 4 MG/250 ML BAG IV SCH (02:42)
--- NOTE | 2020-07-05 03:40 | XRay Report ---
CHEST 1 VIEW [id number] INDICATION / CLINICAL INFORMATION: ETT placement COMPARISON: 07/04/2020 FINDINGS: SUPPORT DEVICES: Endotracheal tube appears to be in satisfactory position with tip approximately 4.9 cm above the tu. Other device positioning appears unchanged. HEART / MEDIASTINUM: Stable LUNGS / PLEURA: Extensive bilateral pulmonary infiltrates are not significantly changed. No pneumotho rax. ADDITIONAL FINDINGS: No significant additional findings. Signer Name: Cresencio Matthews MD Signed: 07/05/2020 3:35 AM Workstation Name: [id number]
[2020-07-05 06:01] LABS: Basophils % (Auto) 0.2 % (0.0-1.8); Eosinophils % (Auto) 0.2 % (0.0-4.3); Hematocrit 29.3 % (35.5-45.6); Hemoglobin 9.8 gm/dl (11.8-15.2); Lymphocytes # (Auto) 1.5 K/mm3 (1.2-5.4); Lymphocytes % (Auto) 11.1 % (13.4-35.0); Mean Corpuscular HGB Conc 33 % (32-34); Mean Corpuscular Volume 101 fl (84-94); Monocytes # (Auto) 0.8 K/mm3 (0.0-0.8); Monocytes % (Auto) 6.2 % (0.0-7.3); Platelet Count 293 K/mm3 (140-440)
[2020-07-05 06:15] LABS: Blood Urea Nitrogen 13 mg/dL (9-20); Calcium 8.9 mg/dL (8.4-10.2); Hemolysis Index 36
[2020-07-05 06:16] LABS: BUN/Creatinine Ratio 43
[2020-07-05] MEDS: PHENobarbital 20 MG/5 ML ORAL LIQD FEEDTUBE SCH (07:54)
[2020-07-05] MEDS: MIDAZOLAM 100 MG in SODIUM CHLORIDE 0.9% 80 ML IV SCH (08:08)
[2020-07-05] MEDS: methylPREDNISolone Sod Succinate 40 MG/1 ML INJ IV SCH ×2 (08:09→20:13)
[2020-07-05] MEDS: MIDODRINE 5 MG TAB PO SCH ×3 (08:10→15:43)
[2020-07-05] MEDS: QUEtiapine 100 MG TAB PO SCH ×3 (08:10→20:13)
[2020-07-05] MEDS: QUEtiapine 200 MG TAB PO SCH ×3 (08:10→20:13)
[2020-07-05] MEDS: dexmedeTOMIDine 1,000 MCG in SODIUM CHLORIDE 0.9% 250ML 250 ML IV SCH ×3 (08:25→22:44)
[2020-07-05] MEDS: ENOXAPARIN 120 MG/0.8 ML INJ SUB-Q SCH ×2 (09:15→22:00)
[2020-07-05] MEDS: DOCUSATE SODIUM 100 MG/10 ML ORAL LIQD PO SCH ×2 (09:16→22:00)
[2020-07-05] MEDS: FOLIC ACID 1 MG TAB PO SCH (09:16)
[2020-07-05] MEDS: LANSOPRAZOLE 30 MG SOLUTAB FEEDTUBE SCH (09:16)
[2020-07-05] MEDS: PHENobarbital 32.4 MG TAB PO SCH ×2 (09:16→22:00)
[2020-07-05] MEDS: SENNOSIDES 8.6 MG TAB PO SCH ×2 (09:16→22:00)
[2020-07-05] MEDS ORDERED: POTASSIUM CHLORIDE 20 MEQ PACKET FEEDTUBE ONE (11:00)
--- NOTE | 2020-07-05 12:32 | Progress Note ---
Assessment and Plan Acute hypoxemic respiratory failure due to COVID-19 Severe Sepsis Bilateral pneumonia Acute kidney injury (SEN) with acute tubular necrosis (ATN) Alcohol dependence Elevated liver function tests (Patient appears alert and follows simple commands albeit on sedation. I have explained to him the risk of sub-glottic stenosis but in partiocular the fact that his course as with many COVID patients appears to be frought with in termittent steps backwards. Considering the duration of intubation and the above i have strongly recommended he get a tracheostomy. I have also explained this to his daughter Tracie and also explained that with him being as sick as he is and on sedation his comprehension is suspect) - awaiting tracheostomy (COVID repeat negative) - reduced FiO2 to 40% - metoprolol 5 mg IV q6h prn pulse > 130/min - continue care as below otherwise; - continue Seroquel at 300 mg po tid - continue Precedex - prn 12 lead EKG to monitor QT - continue midodrine re: hypotension - keep peep at 8 - continue bid protonix - continue bowel regimen - continue to wean supplemental oxygen for target O2 sat's > 92% acutely - continue to wean Levophed for target MAP > 65 mmHg - tracheostomy placement once oxygenation better / more hemodynamically stable - he will need a tracheostomy once numbers better - continue Daily SAT and SBT assessment as tolerated - VAP bundle addressed - continue lung protective strategies - continue bronchodilators with pulmonary hygiene per RT - wean per pulmonary driven protocols otherwise - accuchecks with glycemic control per SSI (While critically ill target blood glucose of 140-180 mg/dL; avoid hypoglycemia) - sedation prn for target RASS -1 to -2 - continue enteral nutritional support at goal rate as tolerated - continue airborne and contact isolation - follow repeat COVID-19 testing - continue Zinc & Vit C supplementaion - continue systemic steroids for Asthma / severe COVID infection - Prone positioning as tolerated - continue empiric full dose anticoagulation re: elevated d-dimers / hypercoagulable state - NOT a candidate for COVID convalescent plasma - continue systemic steroids X >/= 10 days - completed remdesivir dosing (total 5 days) - empiric AB's coverage per ID rec's - accuchecks with glycemic control per SSI (While critically ill target blood glucose of 140-180 mg/dL; avoid hypoglycemia) - avoid nephrotoxins, renally dose all medications - continue to avoid benzodiazepine's, reduce the possibility of delirium - continue wound care per RN / WCN - prn analgesia per CPOT score - Maintenance of sleep-wake cycle, avoid delirium - continue to avoid benzodiazepine's, reduce the possibility of delirium - aspiration precautions - G.I. & VTE prophylaxis - PT/OT/ROM exercises - continue mobility protocols for pressure ulcer prophylaxis - Monitor hemodynamics closely - continue other care per attending / other consultants - discharge planning ongoing concurrently .... Re-evaluate in am & prn CONDITION: CRITICAL PROGNOSIS: GUARDED CODE STATUS: FULL CODE The high probability of a clinically significant, sudden or life-threatening deterioration of the [respiratory, cardiovascular, hematologic & neurologic] system(s) required my full and direct attention, intervention and personal management. The aggregate critical care time was [40] minutes without overlap. Time includes spent on; [x] Data Review and interpretation [x] Patient assessment and monitoring of vital signs [x] Documentation [x] Medication orders and management Subjective Date of service: 07/05/20 Principal diagnosis: Ac hypoxemic resp failure; COVID-19; Severe Sepsis; Shaggy PNA; Alcohol Abuse Interval history: Patient is seen today for: Acute hypoxemic respiratory failure due to COVID-19; Severe Sepsis; Bilateral pneumonia; Alcohol dependence; Elevated liver function tests Seen and examined at bedside; 24hour events reviewed; nursing and respiratory care staff consulted; no adverse overnight events reported to me; resting in bed; remains on MVS; chest tube in place; leakage suggested around ETT cuff but balloon is up and he is getting adequate tidal volumes Objective Vital Signs - 12hr 07/05/20 07/05/20 07/05/20 00:45 01:00 01:16 Temperature Pulse Rate 125 H 123 H 120 H Pulse Rate [ From Monitor] Respiratory 16 20 17 Rate Blood Pressure 107/62 102/63 98/62 O2 Sat by Pulse 95 99 96 Oximetry 07/05/20 07/05/20 07/05/20 01:30 01:45 02:00 Temperature Pulse Rate 116 H 109 H 118 H Pulse Rate [ From Monitor] Respiratory 15 30 H 17 Rate Blood Pressure 101/54 90/57 96/67 O2 Sat by Pulse 98 98 100 Oximetry 07/05/20 07/05/20 07/05/20 02:16 02:30 02:45 Temperature Pulse Rate 114 H 107 H 105 H Pulse Rate [ From Monitor] Respiratory 28 H 30 H 30 H Rate Blood Pressure 96/57 91/57 87/59 O2 Sat by Pulse 95 99 100 Oximetry 07/05/20 07/05/20 07/05/20 03:00 03:15 03:30 Temperature Pulse Rate 94 H 88 83 Pulse Rate [ From Monitor] Respiratory 30 H 30 H 30 H Rate Blood Pressure 83/50 79/44 94/65 O2 Sat by Pulse 100 99 100 Oximetry 07/05/20 07/05/20 07/05/20 03:45 03:58 04:00 Temperature 98.2 F Pulse Rate 83 81 Pulse Rate [ 81 From Monitor] Respiratory 0 L 30 H Rate Blood Pressure 94/57 93/61 O2 Sat by Pulse 100 100 Oximetry 07/05/20 07/05/20 07/05/20 04:15 04:20 04:30 Temperature Pulse Rate 80 80 79 Pulse Rate [ From Monitor] Respiratory 30 H 30 H Rate Blood Pressure 96/65 96/65 98/64 O2 Sat by Pulse 100 100 100 Oximetry 07/05/20 07/05/20 07/05/20 04:45 05:00 05:16 Temperature Pulse Rate 78 79 81 Pulse Rate [ From Monitor] Respiratory 30 H 20 30 H Rate Blood Pressure 98/64 98/64 120/79 O2 Sat by Pulse 100 100 100 Oximetry 07/05/20 07/05/20 07/05/20 05:30 05:45 06:00 Temperature Pulse Rate 81 81 78 Pulse Rate [ From Monitor] Respiratory 30 H 30 H 30 H Rate Blood Pressure 96/58 99/58 92/54 O2 Sat by Pulse 99 98 99 Oximetry 07/05/20 07/05/20 07/05/20 06:15 06:30 06:45 Temperature Pulse Rate 77 76 74 Pulse Rate [ From Monitor] Respiratory 30 H 30 H 30 H Rate Blood Pressure 92/56 92/58 100/63 O2 Sat by Pulse 99 100 100 Oximetry 07/05/20 07/05/20 07/05/20 07:00 07:15 07:30 Temperature Pulse Rate 73 72 72 Pulse Rate [ From Monitor] Respiratory 30 H 30 H 30 H Rate Blood Pressure 101/65 104/65 104/68 O2 Sat by Pulse 100 99 99 Oximetry 07/05/20 07/05/20 07/05/20 07:45 08:00 08:06 Temperature 97.6 F Pulse Rate 65 68 82 Pulse Rate [ 77 From Monitor] Respiratory 30 H 30 H Rate Blood Pressure 104/64 94/60 126/70 O2 Sat by Pulse 100 99 100 Oximetry 07/05/20 07/05/20 07/05/20 08:16 08:30 08:45 Temperature Pulse Rate 82 75 101 H Pulse Rate [ From Monitor] Respiratory 25 H 30 H 15 Rate Blood Pressure 126/70 113/71 130/96 O2 Sat by Pulse 100 100 100 Oximetry 07/05/20 07/05/20 07/05/20 09:00 09:15 09:30 Temperature Pulse Rate 115 H 114 H 117 H Pulse Rate [ From Monitor] Respiratory 25 H 22 21 Rate Blood Pressure 130/96 134/92 134/92 O2 Sat by Pulse 99 94 100 Oximetry 07/05/20 07/05/20 07/05/20 09:46 10:00 10:16 Temperature Pulse Rate 114 H 123 H 127 H Pulse Rate [ From Monitor] Respiratory 18 27 H 28 H Rate Blood Pressure 104/62 113/65 131/82 O2 Sat by Pulse 92 92 92 Oximetry 07/05/20 07/05/20 07/05/20 10:30 10:46 11:00 Temperature Pulse Rate 125 H 125 H 121 H Pulse Rate [ From Monitor] Respiratory 25 H 23 27 H Rate Blood Pressure 131/82 132/82 137/92 O2 Sat by Pulse 91 94 98 Oximetry 07/05/20 12:22 Temperature Pulse Rate 119 H Pulse Rate [ From Monitor] Respiratory Rate Blood Pressure 117/76 O2 Sat by Pulse 100 Oximetry Constitutional: no acute distress, other (middle aged obese male with mildly increased respiratory effort at rest on MVS) Eyes: non-icteric ENT: oropharynx moist, other (ETT 24 cm CHILO) Neck: supple, no JVD Effort: mildly labored Ascultation: Bilateral: diminished breath sounds, rhonchi (scant), other (right chest tube) Percussion: Bilateral: not dull Cardiovascular: regular rate and rhythm, other (No R/M) Gastrointestinal: normoactive bowel sounds, soft, non-tender, other (distended and firm) Integumentary: normal Extremities: no cyanosis, no edema, pulses normal, no ischemia or petechiae Neurologic: non-focal exam (non focal grossly; weak), pupils equal and round, CN II-XII normal Psychiatric: mood appropriate, affect normal CBC and BMP: 07/05/20 05:18 07/05/20 05:18 ABG, PT/INR, D-dimer: ABG ABG pH 7.48 (7.320-7.450) H 07/05/20 03:13 POC ABG pCO2 52.0 mmHg (32.0-48.0) H 07/05/20 03:13 ABG pCO2 69.8 mm Hg 06/22/20 03:50 POC ABG pO2 101.5 mmHg (83-108) 07/05/20 03:13 ABG pO2 89.6 mm Hg (80.0-90.0) 06/22/20 03:50 POC ABG HCO3 37.9 07/05/20 03:13 ABG O2 Saturation 97.1 % (95.0-99.0) 06/22/20 03:50 PT/INR, D-dimer PT 11.8 Sec. (12.2-14.9) L 06/22/20 14:29 INR 0.88 (0.87-1.13) 06/22/20 14:29 D-Dimer 1887.82 ng/mlDDU (0-234) H 05/20/20 08:16 Abnormal lab findings: Abnormal Labs 05/09/20 05/09/20 05/09/20 12:59 12:59 12:59 WBC 11.8 H RBC Hgb Hct MCV 96 H MCH 34 H MCHC 35 H RDW Lymph % (Auto) 6.9 L Lymph # (Auto) 0.8 L [place] # (Auto) Baso # (Auto) Seg Neutrophils % 87.5 H Seg Neuts % (Manual) Lymphocytes % (Manual) Nucleated RBC % Seg Neutrophils # 10.3 H Seg Neutrophils # Man Lymphocytes # (Manual) Monocytes # (Manual) Eosinophils # (Manual) PT INR APTT D-Dimer Heparin Anti-Xa Level ABG pH POC ABG pCO2 POC ABG pO2 ABG pO2 ABG HCO3 ABG O2 Saturation ABG Base Excess ABG Hemoglobin ABG Oxyhemoglobin ABG Sodium ABG Potassium ABG Chloride ABG Glucose Oxyhemoglobin Carboxyhemoglobin Sodium 130 L Potassium 3.5 L Chloride 86.4 L Carbon Dioxide BUN 33 H Creatinine 2.3 H Glucose 156 H POC Glucose Lactic Acid Calcium Magnesium Ferritin Total Bilirubin 3.40 H Direct Bilirubin 1.7 H AST 385 H ALT 134 H Alkaline Phosphatase Lactate Dehydrogenase C-Reactive Protein Total Protein Albumin 3.0 L Triglycerides Lipase Arterial Blood Glucose Arterial Blood Ionized Calcium Urine WBC (Auto) Coronavirus (PCR) SARS-CoV-2 IgG Ab Crossmatch 05/09/20 05/09/20 05/09/20 12:59 12:59 12:59 WBC RBC Hgb Hct MCV MCH MCHC RDW Lymph % (Auto) Lymph # (Auto) [place] # (Auto) Baso # (Auto) Seg Neutrophils % Seg Neuts % (Manual) Lymphocytes % (Manual) Nucleated RBC % Seg Neutrophils # Seg Neutrophils # Man Lymphocytes # (Manual) Monocytes # (Manual) Eosinophils # (Manual) PT INR APTT D-Dimer 3242.51 H Heparin Anti-Xa Level ABG pH POC ABG pCO2 POC ABG pO2 ABG pO2 ABG HCO3 ABG O2 Saturation ABG Base Excess ABG Hemoglobin ABG Oxyhemoglobin ABG Sodium ABG Potassium ABG Chloride ABG Glucose Oxyhemoglobin Carboxyhemoglobin Sodium Potassium Chloride Carbon Dioxide BUN Creatinine Glucose 158 H POC Glucose Lactic Acid 3.50 H* Calcium Magnesium Ferritin Total Bilirubin Direct Bilirubin AST ALT Alkaline Phosphatase Lactate Dehydrogenase 2166 H C-Reactive Protein 39.00 H Total Protein Albumin Triglycerides Lipase Arterial Blood Glucose Arterial Blood Ionized Calcium Urine WBC (Auto) Coronavirus (PCR) SARS-CoV-2 IgG Ab Crossmatch 05/09/20 05/09/20 05/09/20 12:59 14:20 14:20 WBC RBC Hgb Hct MCV MCH MCHC RDW Lymph % (Auto) Lymph # (Auto) [place] # (Auto) Baso # (Auto) Seg Neutrophils % Seg Neuts % (Manual) Lymphocytes % (Manual) Nucleated RBC % Seg Neutrophils # Seg Neutrophils # Man Lymphocytes # (Manual) Monocytes # (Manual) Eosinophils # (Manual) PT INR APTT D-Dimer 2861.78 H Heparin Anti-Xa Level ABG pH POC ABG pCO2 POC ABG pO2 ABG pO2 ABG HCO3 ABG O2 Saturation ABG Base Excess ABG Hemoglobin ABG Oxyhemoglobin ABG Sodium ABG Potassium ABG Chloride ABG Glucose Oxyhemoglobin Carboxyhemoglobin Sodium Potassium Chloride Carbon Dioxide BUN Creatinine Glucose POC Glucose Lactic Acid 2.20 H* Calcium Magnesium Ferritin 20992.0 H Total Bilirubin Direct Bilirubin AST ALT Alkaline Phosphatase Lactate Dehydrogenase C-Reactive Protein Total Protein Albumin Triglycerides Lipase Arterial Blood Glucose Arterial Blood Ionized Calcium Urine WBC (Auto) Coronavirus (PCR) SARS-CoV-2 IgG Ab Crossmatch 05/09/20 05/09/20 05/09/20 14:20 14:20 15:56 WBC RBC Hgb Hct MCV MCH MCHC RDW Lymph % (Auto) Lymph # (Auto) [place] # (Auto) Baso # (Auto) Seg Neutrophils % Seg Neuts % (Manual) Lymphocytes % (Manual) Nucleated RBC % Seg Neutrophils # Seg Neutrophils # Man Lymphocytes # (Manual) Monocytes # (Manual) Eosinophils # (Manual) PT INR APTT D-Dimer Heparin Anti-Xa Level ABG pH POC ABG pCO2 POC ABG pO2 57.3 L ABG pO2 ABG HCO3 ABG O2 Saturation ABG Base Excess ABG Hemoglobin ABG Oxyhemoglobin 86.3 L ABG Sodium 129.9 L ABG Potassium ABG Chloride ABG Glucose 146 H Oxyhemoglobin Carboxyhemoglobin Sodium Potassium Chloride Carbon Dioxide BUN Creatinine Glucose 143 H POC Glucose Lactic Acid Calcium Magnesium Ferritin 21763.0 H Total Bilirubin Direct Bilirubin AST ALT Alkaline Phosphatase Lactate Dehydrogenase 1953 H C-Reactive Protein 33.50 H Total Protein Albumin Triglycerides Lipase Arterial Blood Glucose 146 H Arterial Blood Ionized Calcium 3.9 L Urine WBC (Auto) Coronavirus (PCR) SARS-CoV-2 IgG Ab Crossmatch 05/10/20 05/10/20 05/10/20 10:32 10:32 18:50 WBC 15.4 H RBC Hgb Hct MCV 97 H MCH 33 H MCHC RDW 13.1 L Lymph % (Auto) Lymph # (Auto) [place] # (Auto) Baso # (Auto) Seg Neutrophils % Seg Neuts % (Manual) 89.0 H Lymphocytes % (Manual) 8.0 L Nucleated RBC % Seg Neutrophils # Seg Neutrophils # Man 13.7 H Lymphocytes # (Manual) Monocytes # (Manual) Eosinophils # (Manual) PT INR APTT D-Dimer Heparin Anti-Xa Level ABG pH POC ABG pCO2 POC ABG pO2 ABG pO2 ABG HCO3 ABG O2 Saturation ABG Base Excess ABG Hemoglobin ABG Oxyhemoglobin ABG Sodium ABG Potassium ABG Chloride ABG Glucose Oxyhemoglobin Carboxyhemoglobin Sodium 136 L Potassium Chloride 97.4 L Carbon Dioxide BUN 37 H Creatinine 1.7 H Glucose 209 H POC Glucose Lactic Acid Calcium Magnesium Ferritin > 2000.0 H Total Bilirubin Direct Bilirubin AST ALT Alkaline Phosphatase Lactate Dehydrogenase C-Reactive Protein Total Protein Albumin Triglycerides Lipase Arterial Blood Glucose Arterial Blood Ionized Calcium Urine WBC (Auto) Coronavirus (PCR) SARS-CoV-2 IgG Ab Crossmatch 05/10/20 05/10/20 05/10/20 18:50 19:00 Unknown WBC RBC Hgb Hct MCV MCH MCHC RDW Lymph % (Auto) Lymph # (Auto) [place] # (Auto) Baso # (Auto) Seg Neutrophils % Seg Neuts % (Manual) Lymphocytes % (Manual) Nucleated RBC % Seg Neutrophils # Seg Neutrophils # Man Lymphocytes # (Manual) Monocytes # (Manual) Eosinophils # (Manual) PT INR APTT D-Dimer > 99280 H Heparin Anti-Xa Level ABG pH POC ABG pCO2 POC ABG pO2 ABG pO2 ABG HCO3 ABG O2 Saturation ABG Base Excess ABG Hemoglobin ABG Oxyhemoglobin ABG Sodium ABG Potassium ABG Chloride ABG Glucose Oxyhemoglobin Carboxyhemoglobin Sodium Potassium Chloride Carbon Dioxide BUN Creatinine Glucose POC Glucose Lactic Acid Calcium Magnesium Ferritin Total Bilirubin Direct Bilirubin AST ALT Alkaline Phosphatase Lactate Dehydrogenase 1879 H C-Reactive Protein 24.80 H Total Protein Albumin Triglycerides Lipase Arterial Blood Glucose Arterial Blood Ionized Calcium Urine WBC (Auto) 11.0 H Coronavirus (PCR) SARS-CoV-2 IgG Ab Crossmatch 05/10/20 05/11/20 05/11/20 Unknown 07:30 07:30 WBC RBC Hgb Hct MCV MCH MCHC RDW Lymph % (Auto) Lymph # (Auto) [place] # (Auto) Baso # (Auto) Seg Neutrophils % Seg Neuts % (Manual) Lymphocytes % (Manual) Nucleated RBC % Seg Neutrophils # Seg Neutrophils # Man Lymphocytes # (Manual) Monocytes # (Manual) Eosinophils # (Manual) PT INR APTT D-Dimer > 2000 H Heparin Anti-Xa Level ABG pH POC ABG pCO2 POC ABG pO2 ABG pO2 ABG HCO3 ABG O2 Saturation ABG Base Excess ABG Hemoglobin ABG Oxyhemoglobin ABG Sodium ABG Potassium ABG Chloride ABG Glucose Oxyhemoglobin Carboxyhemoglobin Sodium Potassium Chloride 96.3 L Carbon Dioxide BUN 36 H Creatinine Glucose 161 H POC Glucose Lactic Acid Calcium 8.3 L Magnesium Ferritin Total Bilirubin 1.50 H Direct Bilirubin 0.6 H AST 178 H ALT 111 H Alkaline Phosphatase Lactate Dehydrogenase C-Reactive Protein Total Protein Albumin 3.0 L Triglycerides Lipase Arterial Blood Glucose Arterial Blood Ionized Calcium Urine WBC (Auto) Coronavirus (PCR) Positive A SARS-CoV-2 IgG Ab Crossmatch 05/11/20 05/11/20 05/11/20 07:30 07:30 07:30 WBC RBC Hgb Hct MCV MCH MCHC RDW Lymph % (Auto) Lymph # (Auto) [place] # (Auto) Baso # (Auto) Seg Neutrophils % Seg Neuts % (Manual) Lymphocytes % (Manual) Nucleated RBC % Seg Neutrophils # Seg Neutrophils # Man Lymphocytes # (Manual) Monocytes # (Manual) Eosinophils # (Manual) PT INR APTT D-Dimer Heparin Anti-Xa Level ABG pH POC ABG pCO2 POC ABG pO2 ABG pO2 ABG HCO3 ABG O2 Saturation ABG Base Excess ABG Hemoglobin ABG Oxyhemoglobin ABG Sodium ABG Potassium ABG Chloride ABG Glucose Oxyhemoglobin Carboxyhemoglobin Sodium Potassium Chloride Carbon Dioxide BUN Creatinine Glucose POC Glucose Lactic Acid Calcium Magnesium Ferritin 86885.0 H Total Bilirubin Direct Bilirubin AST ALT Alkaline Phosphatase Lactate Dehydrogenase 1523 H C-Reactive Protein 12.90 H Total Protein Albumin Triglycerides Lipase Arterial Blood Glucose Arterial Blood Ionized Calcium Urine WBC (Auto) Coronavirus (PCR) SARS-CoV-2 IgG Ab Reactive A Crossmatch 05/13/20 05/13/20 05/15/20 05:20 05:20 08:15 WBC RBC Hgb Hct MCV MCH MCHC RDW Lymph % (Auto) Lymph # (Auto) [place] # (Auto) Baso # (Auto) Seg Neutrophils % Seg Neuts % (Manual) Lymphocytes % (Manual) Nucleated RBC % Seg Neutrophils # Seg Neutrophils # Man Lymphocytes # (Manual) Monocytes # (Manual) Eosinophils # (Manual) PT INR APTT D-Dimer > 33900 H 5318.28 H Heparin Anti-Xa Level ABG pH POC ABG pCO2 POC ABG pO2 ABG pO2 ABG HCO3 ABG O2 Saturation ABG Base Excess ABG Hemoglobin ABG Oxyhemoglobin ABG Sodium ABG Potassium ABG Chloride ABG Glucose Oxyhemoglobin Carboxyhemoglobin Sodium Potassium Chloride Carbon Dioxide 32 H BUN 30 H Creatinine Glucose 156 H POC Glucose Lactic Acid Calcium Magnesium 2.60 H Ferritin Total Bilirubin 1.40 H Direct Bilirubin AST 121 H ALT 119 H Alkaline Phosphatase Lactate Dehydrogenase 957 H C-Reactive Protein 4.00 H Total Protein Albumin 3.0 L Triglycerides Lipase Arterial Blood Glucose Arterial Blood Ionized Calcium Urine WBC (Auto) Coronavirus (PCR) SARS-CoV-2 IgG Ab Crossmatch 05/15/20 05/15/20 05/15/20 08:15 08:15 08:15 WBC 12.4 H RBC Hgb Hct MCV 98 H MCH 33 H MCHC RDW Lymph % (Auto) 9.7 L Lymph # (Auto) [place] # (Auto) Baso # (Auto) Seg Neutrophils % 86.8 H Seg Neuts % (Manual) Lymphocytes % (Manual) Nucleated RBC % Seg Neutrophils # 10.8 H Seg Neutrophils # Man Lymphocytes # (Manual) Monocytes # (Manual) Eosinophils # (Manual) PT INR APTT D-Dimer Heparin Anti-Xa Level ABG pH POC ABG pCO2 POC ABG pO2 ABG pO2 ABG HCO3 ABG O2 Saturation ABG Base Excess ABG Hemoglobin ABG Oxyhemoglobin ABG Sodium ABG Potassium ABG Chloride ABG Glucose Oxyhemoglobin Carboxyhemoglobin Sodium Potassium Chloride 94.8 L Carbon Dioxide 32 H BUN 22 H Creatinine Glucose 115 H POC Glucose Lactic Acid Calcium 8.3 L Magnesium Ferritin 2494.0 H Total Bilirubin Direct Bilirubin AST 73 H ALT 121 H Alkaline Phosphatase Lactate Dehydrogenase 835 H C-Reactive Protein 3.40 H Total Protein 6.1 L Albumin 3.0 L Triglycerides Lipase Arterial Blood Glucose Arterial Blood Ionized Calcium Urine WBC (Auto) Coronavirus (PCR) SARS-CoV-2 IgG Ab Crossmatch 05/17/20 05/17/20 05/17/20 05:50 05:50 05:50 WBC RBC Hgb Hct MCV MCH MCHC RDW Lymph % (Auto) Lymph # (Auto) [place] # (Auto) Baso # (Auto) Seg Neutrophils % Seg Neuts % (Manual) Lymphocytes % (Manual) Nucleated RBC % Seg Neutrophils # Seg Neutrophils # Man Lymphocytes # (Manual) Monocytes # (Manual) Eosinophils # (Manual) PT INR APTT D-Dimer 2911.42 H Heparin Anti-Xa Level ABG pH POC ABG pCO2 POC ABG pO2 ABG pO2 ABG HCO3 ABG O2 Saturation ABG Base Excess ABG Hemoglobin ABG Oxyhemoglobin ABG Sodium ABG Potassium ABG Chloride ABG Glucose Oxyhemoglobin Carboxyhemoglobin Sodium 136 L Potassium Chloride 96.0 L Carbon Dioxide 34 H BUN 22 H Creatinine Glucose 140 H POC Glucose Lactic Acid Calcium Magnesium Ferritin 2082.0 H Total Bilirubin Direct Bilirubin AST ALT 75 H Alkaline Phosphatase Lactate Dehydrogenase 601 H C-Reactive Protein 2.70 H Total Protein Albumin 2.9 L Triglycerides Lipase Arterial Blood Glucose Arterial Blood Ionized Calcium Urine WBC (Auto) Coronavirus (PCR) SARS-CoV-2 IgG Ab Crossmatch 05/17/20 05/18/20 05/20/20 05:50 12:22 08:16 WBC RBC Hgb Hct MCV 98 H MCH 33 H MCHC RDW Lymph % (Auto) 8.0 L Lymph # (Auto) 0.8 L [place] # (Auto) Baso # (Auto) Seg Neutrophils % 89.3 H Seg Neuts % (Manual) Lymphocytes % (Manual) Nucleated RBC % Seg Neutrophils # 8.8 H Seg Neutrophils # Man Lymphocytes # (Manual) Monocytes # (Manual) Eosinophils # (Manual) PT INR APTT D-Dimer 1887.82 H Heparin Anti-Xa Level ABG pH POC ABG pCO2 POC ABG pO2 ABG pO2 ABG HCO3 ABG O2 Saturation ABG Base Excess ABG Hemoglobin ABG Oxyhemoglobin ABG Sodium ABG Potassium ABG Chloride ABG Glucose Oxyhemoglobin Carboxyhemoglobin Sodium Potassium Chloride Carbon Dioxide BUN Creatinine Glucose POC Glucose 178 H Lactic Acid Calcium Magnesium Ferritin Total Bilirubin Direct Bilirubin AST ALT Alkaline Phosphatase Lactate Dehydrogenase C-Reactive Protein Total Protein Albumin Triglycerides Lipase Arterial Blood Glucose Arterial Blood Ionized Calcium Urine WBC (Auto) Coronavirus (PCR) SARS-CoV-2 IgG Ab Crossmatch 05/20/20 05/20/20 05/21/20 08:16 08:16 21:10 WBC RBC Hgb Hct MCV MCH MCHC RDW Lymph % (Auto) Lymph # (Auto) [place] # (Auto) Baso # (Auto) Seg Neutrophils % Seg Neuts % (Manual) Lymphocytes % (Manual) Nucleated RBC % Seg Neutrophils # Seg Neutrophils # Man Lymphocytes # (Manual) Monocytes # (Manual) Eosinophils # (Manual) PT INR APTT D-Dimer Heparin Anti-Xa Level ABG pH 7.483 H POC ABG pCO2 POC ABG pO2 ABG pO2 50.0 L ABG HCO3 27.0 H ABG O2 Saturation 86.2 L ABG Base Excess 3.7 H ABG Hemoglobin ABG Oxyhemoglobin ABG Sodium ABG Potassium ABG Chloride ABG Glucose Oxyhemoglobin 84.2 L Carboxyhemoglobin Sodium Potassium Chloride Carbon Dioxide BUN Creatinine Glucose POC Glucose Lactic Acid Calcium Magnesium Ferritin 1960.0 H Total Bilirubin Direct Bilirubin AST ALT Alkaline Phosphatase Lactate Dehydrogenase 705 H C-Reactive Protein 3.10 H Total Protein Albumin Triglycerides Lipase Arterial Blood Glucose Arterial Blood Ionized Calcium Urine WBC (Auto) Coronavirus (PCR) SARS-CoV-2 IgG Ab Crossmatch 05/22/20 05/22/20 05/22/20 04:01 07:53 07:53 WBC 19.2 H RBC Hgb Hct MCV 98 H MCH 34 H MCHC RDW Lymph % (Auto) Lymph # (Auto) [place] # (Auto) Baso # (Auto) Seg Neutrophils % Seg Neuts % (Manual) 96.0 H Lymphocytes % (Manual) 1.0 L Nucleated RBC % Seg Neutrophils # Seg Neutrophils # Man 18.4 H Lymphocytes # (Manual) 0.2 L Monocytes # (Manual) Eosinophils # (Manual) PT INR APTT D-Dimer Heparin Anti-Xa Level ABG pH POC ABG pCO2 53.8 H POC ABG pO2 125.5 H ABG pO2 ABG HCO3 ABG O2 Saturation ABG Base Excess ABG Hemoglobin ABG Oxyhemoglobin ABG Sodium 131.8 L ABG Potassium 4.8 H ABG Chloride 94.0 L ABG Glucose 163 H Oxyhemoglobin Carboxyhemoglobin Sodium 131 L Potassium Chloride 93.4 L Carbon Dioxide BUN 40 H Creatinine Glucose 176 H POC Glucose Lactic Acid Calcium Magnesium 2.70 H Ferritin Total Bilirubin 1.80 H Direct Bilirubin AST 45 H ALT 116 H Alkaline Phosphatase 181 H Lactate Dehydrogenase C-Reactive Protein Total Protein Albumin 2.6 L Triglycerides Lipase Arterial Blood Glucose 163 H Arterial Blood Ionized Calcium 4.5 L Urine WBC (Auto) Coronavirus (PCR) SARS-CoV-2 IgG Ab Crossmatch 05/23/20 05/24/20 05/24/20 04:17 03:07 04:08 WBC RBC Hgb Hct MCV MCH MCHC RDW Lymph % (Auto) Lymph # (Auto) [place] # (Auto) Baso # (Auto) Seg Neutrophils % Seg Neuts % (Manual) Lymphocytes % (Manual) Nucleated RBC % Seg Neutrophils # Seg Neutrophils # Man Lymphocytes # (Manual) Monocytes # (Manual) Eosinophils # (Manual) PT INR APTT D-Dimer Heparin Anti-Xa Level ABG pH 7.328 L POC ABG pCO2 POC ABG pO2 ABG pO2 72.8 L 73.4 L ABG HCO3 31.0 H 34.0 H ABG O2 Saturation 93.5 L ABG Base Excess 3.5 H 7.7 H ABG Hemoglobin 13.3 L 12.1 L ABG Oxyhemoglobin ABG Sodium ABG Potassium ABG Chloride ABG Glucose Oxyhemoglobin 91.5 L 94.3 L Carboxyhemoglobin Sodium Potassium Chloride Carbon Dioxide BUN Creatinine Glucose POC Glucose 155 H Lactic Acid Calcium Magnesium Ferritin Total Bilirubin Direct Bilirubin AST ALT Alkaline Phosphatase Lactate Dehydrogenase C-Reactive Protein Total Protein Albumin Triglycerides Lipase Arterial Blood Glucose Arterial Blood Ionized Calcium Urine WBC (Auto) Coronavirus (PCR) SARS-CoV-2 IgG Ab Crossmatch 05/24/20 05/24/20 05/24/20 09:33 12:21 17:52 WBC RBC Hgb Hct MCV MCH MCHC RDW Lymph % (Auto) Lymph # (Auto) [place] # (Auto) Baso # (Auto) Seg Neutrophils % Seg Neuts % (Manual) Lymphocytes % (Manual) Nucleated RBC % Seg Neutrophils # Seg Neutrophils # Man Lymphocytes # (Manual) Monocytes # (Manual) Eosinophils # (Manual) PT INR APTT D-Dimer Heparin Anti-Xa Level ABG pH POC ABG pCO2 POC ABG pO2 ABG pO2 ABG HCO3 ABG O2 Saturation ABG Base Excess ABG Hemoglobin ABG Oxyhemoglobin ABG Sodium ABG Potassium ABG Chloride ABG Glucose Oxyhemoglobin Carboxyhemoglobin Sodium Potassium Chloride Carbon Dioxide 34 H D BUN 28 H Creatinine 0.7 L Glucose 168 H POC Glucose 173 H 164 H Lactic Acid Calcium Magnesium Ferritin Total Bilirubin Direct Bilirubin AST ALT Alkaline Phosphatase Lactate Dehydrogenase C-Reactive Protein Total Protein Albumin Triglycerides Lipase Arterial Blood Glucose Arterial Blood Ionized Calcium Urine WBC (Auto) Coronavirus (PCR) SARS-CoV-2 IgG Ab Crossmatch 05/24/20 05/25/20 05/25/20 23:47 04:29 05:46 WBC RBC Hgb Hct MCV MCH MCHC RDW Lymph % (Auto) Lymph # (Auto) [place] # (Auto) Baso # (Auto) Seg Neutrophils % Seg Neuts % (Manual) Lymphocytes % (Manual) Nucleated RBC % Seg Neutrophils # Seg Neutrophils # Man Lymphocytes # (Manual) Monocytes # (Manual) Eosinophils # (Manual) PT INR APTT D-Dimer Heparin Anti-Xa Level ABG pH POC ABG pCO2 68.6 H POC ABG pO2 ABG pO2 ABG HCO3 ABG O2 Saturation ABG Base Excess ABG Hemoglobin ABG Oxyhemoglobin ABG Sodium ABG Potassium 4.7 H ABG Chloride ABG Glucose 226 H Oxyhemoglobin Carboxyhemoglobin Sodium Potassium Chloride Carbon Dioxide BUN Creatinine Glucose POC Glucose 171 H 201 H Lactic Acid Calcium Magnesium Ferritin Total Bilirubin Direct Bilirubin AST ALT Alkaline Phosphatase Lactate Dehydrogenase C-Reactive Protein Total Protein Albumin Triglycerides Lipase Arterial Blood Glucose 226 H Arterial Blood Ionized Calcium Urine WBC (Auto) Coronavirus (PCR) SARS-CoV-2 IgG Ab Crossmatch 05/25/20 05/25/20 05/25/20 08:37 08:37 12:38 WBC 12.0 H RBC 3.64 L Hgb Hct MCV 99 H MCH 33 H MCHC RDW Lymph % (Auto) Lymph # (Auto) [place] # (Auto) Baso # (Auto) Seg Neutrophils % Seg Neuts % (Manual) Lymphocytes % (Manual) Nucleated RBC % Seg Neutrophils # Seg Neutrophils # Man Lymphocytes # (Manual) Monocytes # (Manual) Eosinophils # (Manual) PT INR APTT D-Dimer Heparin Anti-Xa Level ABG pH POC ABG pCO2 POC ABG pO2 ABG pO2 ABG HCO3 ABG O2 Saturation ABG Base Excess ABG Hemoglobin ABG Oxyhemoglobin ABG Sodium ABG Potassium ABG Chloride ABG Glucose Oxyhemoglobin Carboxyhemoglobin Sodium Potassium Chloride 97.3 L Carbon Dioxide 35 H BUN 25 H Creatinine 0.7 L Glucose 191 H POC Glucose 182 H Lactic Acid Calcium Magnesium Ferritin Total Bilirubin Direct Bilirubin AST ALT Alkaline Phosphatase Lactate Dehydrogenase C-Reactive Protein Total Protein Albumin Triglycerides Lipase Arterial Blood Glucose Arterial Blood Ionized Calcium Urine WBC (Auto) Coronavirus (PCR) SARS-CoV-2 IgG Ab Crossmatch 05/25/20 05/26/20 05/26/20 18:16 00:06 04:50 WBC RBC Hgb Hct MCV MCH MCHC RDW Lymph % (Auto) Lymph # (Auto) [place] # (Auto) Baso # (Auto) Seg Neutrophils % Seg Neuts % (Manual) Lymphocytes % (Manual) Nucleated RBC % Seg Neutrophils # Seg Neutrophils # Man Lymphocytes # (Manual) Monocytes # (Manual) Eosinophils # (Manual) PT INR APTT D-Dimer Heparin Anti-Xa Level ABG pH POC ABG pCO2 POC ABG pO2 ABG pO2 221.5 H ABG HCO3 40.4 H ABG O2 Saturation 99.3 H ABG Base Excess 12.8 H ABG Hemoglobin 10.4 L ABG Oxyhemoglobin ABG Sodium ABG Potassium ABG Chloride ABG Glucose Oxyhemoglobin Carboxyhemoglobin Sodium Potassium Chloride Carbon Dioxide BUN Creatinine Glucose POC Glucose 176 H 152 H Lactic Acid Calcium Magnesium Ferritin Total Bilirubin Direct Bilirubin AST ALT Alkaline Phosphatase Lactate Dehydrogenase C-Reactive Protein Total Protein Albumin Triglycerides Lipase Arterial Blood Glucose Arterial Blood Ionized Calcium Urine WBC (Auto) Coronavirus (PCR) SARS-CoV-2 IgG Ab Crossmatch 05/26/20 05/26/20 05/26/20 06:11 07:51 07:51 WBC 13.4 H RBC 3.64 L Hgb Hct MCV 98 H MCH 33 H MCHC RDW Lymph % (Auto) Lymph # (Auto) [place] # (Auto) Baso # (Auto) Seg Neutrophils % Seg Neuts % (Manual) Lymphocytes % (Manual) Nucleated RBC % Seg Neutrophils # Seg Neutrophils # Man Lymphocytes # (Manual) Monocytes # (Manual) Eosinophils # (Manual) PT INR APTT D-Dimer Heparin Anti-Xa Level ABG pH POC ABG pCO2 POC ABG pO2 ABG pO2 ABG HCO3 ABG O2 Saturation ABG Base Excess ABG Hemoglobin ABG Oxyhemoglobin ABG Sodium ABG Potassium ABG Chloride ABG Glucose Oxyhemoglobin Carboxyhemoglobin Sodium Potassium Chloride 96.6 L Carbon Dioxide 39 H BUN 29 H Creatinine 0.7 L Glucose 174 H POC Glucose 165 H Lactic Acid Calcium Magnesium Ferritin Total Bilirubin Direct Bilirubin AST ALT Alkaline Phosphatase Lactate Dehydrogenase C-Reactive Protein Total Protein Albumin Triglycerides Lipase Arterial Blood Glucose Arterial Blood Ionized Calcium Urine WBC (Auto) Coronavirus (PCR) SARS-CoV-2 IgG Ab Crossmatch 05/26/20 05/27/20 05/27/20 23:23 03:43 05:29 WBC RBC Hgb Hct MCV MCH MCHC RDW Lymph % (Auto) Lymph # (Auto) [place] # (Auto) Baso # (Auto) Seg Neutrophils % Seg Neuts % (Manual) Lymphocytes % (Manual) Nucleated RBC % Seg Neutrophils # Seg Neutrophils # Man Lymphocytes # (Manual) Monocytes # (Manual) Eosinophils # (Manual) PT INR APTT D-Dimer Heparin Anti-Xa Level ABG pH 7.480 H POC ABG pCO2 52.4 H POC ABG pO2 61.4 L ABG pO2 ABG HCO3 ABG O2 Saturation ABG Base Excess ABG Hemoglobin ABG Oxyhemoglobin ABG Sodium 134.9 L ABG Potassium ABG Chloride 95.0 L ABG Glucose 221 H Oxyhemoglobin Carboxyhemoglobin Sodium Potassium Chloride Carbon Dioxide BUN Creatinine Glucose POC Glucose 169 H 227 H Lactic Acid Calcium Magnesium Ferritin Total Bilirubin Direct Bilirubin AST ALT Alkaline Phosphatase Lactate Dehydrogenase C-Reactive Protein Total Protein Albumin Triglycerides Lipase Arterial Blood Glucose 221 H Arterial Blood Ionized Calcium 4.5 L Urine WBC (Auto) Coronavirus (PCR) SARS-CoV-2 IgG Ab Crossmatch 05/27/20 05/27/20 05/27/20 07:19 12:18 13:50 WBC RBC Hgb Hct MCV MCH MCHC RDW Lymph % (Auto) Lymph # (Auto) [place] # (Auto) Baso # (Auto) Seg Neutrophils % Seg Neuts % (Manual) Lymphocytes % (Manual) Nucleated RBC % Seg Neutrophils # Seg Neutrophils # Man Lymphocytes # (Manual) Monocytes # (Manual) Eosinophils # (Manual) PT INR APTT D-Dimer Heparin Anti-Xa Level ABG pH POC ABG pCO2 POC ABG pO2 ABG pO2 ABG HCO3 ABG O2 Saturation ABG Base Excess ABG Hemoglobin ABG Oxyhemoglobin ABG Sodium ABG Potassium ABG Chloride ABG Glucose Oxyhemoglobin Carboxyhemoglobin Sodium Potassium Chloride Carbon Dioxide BUN Creatinine Glucose POC Glucose 114 H 148 H Lactic Acid Calcium Magnesium Ferritin Total Bilirubin Direct Bilirubin AST ALT Alkaline Phosphatase Lactate Dehydrogenase C-Reactive Protein Total Protein Albumin Triglycerides 247 H Lipase Arterial Blood Glucose Arterial Blood Ionized Calcium Urine WBC (Auto) Coronavirus (PCR) SARS-CoV-2 IgG Ab Crossmatch 05/28/20 05/28/20 05/28/20 00:13 04:16 05:22 WBC RBC Hgb Hct MCV MCH MCHC RDW Lymph % (Auto) Lymph # (Auto) [place] # (Auto) Baso # (Auto) Seg Neutrophils % Seg Neuts % (Manual) Lymphocytes % (Manual) Nucleated RBC % Seg Neutrophils # Seg Neutrophils # Man Lymphocytes # (Manual) Monocytes # (Manual) Eosinophils # (Manual) PT INR APTT D-Dimer Heparin Anti-Xa Level ABG pH POC ABG pCO2 64.4 H POC ABG pO2 60.5 L ABG pO2 ABG HCO3 ABG O2 Saturation ABG Base Excess ABG Hemoglobin ABG Oxyhemoglobin ABG Sodium ABG Potassium ABG Chloride 95.0 L ABG Glucose 209 H Oxyhemoglobin Carboxyhemoglobin Sodium Potassium Chloride Carbon Dioxide BUN Creatinine Glucose POC Glucose 155 H 186 H Lactic Acid Calcium Magnesium Ferritin Total Bilirubin Direct Bilirubin AST ALT Alkaline Phosphatase Lactate Dehydrogenase C-Reactive Protein Total Protein Albumin Triglycerides Lipase Arterial Blood Glucose 209 H Arterial Blood Ionized Calcium Urine WBC (Auto) Coronavirus (PCR) SARS-CoV-2 IgG Ab Crossmatch 05/28/20 05/28/20 05/29/20 12:45 17:39 00:37 WBC RBC Hgb Hct MCV MCH MCHC RDW Lymph % (Auto) Lymph # (Auto) [place] # (Auto) Baso # (Auto) Seg Neutrophils % Seg Neuts % (Manual) Lymphocytes % (Manual) Nucleated RBC % Seg Neutrophils # Seg Neutrophils # Man Lymphocytes # (Manual) Monocytes # (Manual) Eosinophils # (Manual) PT INR APTT D-Dimer Heparin Anti-Xa Level ABG pH POC ABG pCO2 POC ABG pO2 ABG pO2 ABG HCO3 ABG O2 Saturation ABG Base Excess ABG Hemoglobin ABG Oxyhemoglobin ABG Sodium ABG Potassium ABG Chloride ABG Glucose Oxyhemoglobin Carboxyhemoglobin Sodium Potassium Chloride Carbon Dioxide BUN Creatinine Glucose POC Glucose 143 H 164 H 221 H Lactic Acid Calcium Magnesium Ferritin Total Bilirubin Direct Bilirubin AST ALT Alkaline Phosphatase Lactate Dehydrogenase C-Reactive Protein Total Protein Albumin Triglycerides Lipase Arterial Blood Glucose Arterial Blood Ionized Calcium Urine WBC (Auto) Coronavirus (PCR) SARS-CoV-2 IgG Ab Crossmatch 05/29/20 05/29/20 05/29/20 04:15 05:33 12:34 WBC RBC Hgb Hct MCV MCH MCHC RDW Lymph % (Auto) Lymph # (Auto) [place] # (Auto) Baso # (Auto) Seg Neutrophils % Seg Neuts % (Manual) Lymphocytes % (Manual) Nucleated RBC % Seg Neutrophils # Seg Neutrophils # Man Lymphocytes # (Manual) Monocytes # (Manual) Eosinophils # (Manual) PT INR APTT D-Dimer Heparin Anti-Xa Level ABG pH 7.463 H POC ABG pCO2 56.3 H POC ABG pO2 81.2 L ABG pO2 ABG HCO3 ABG O2 Saturation ABG Base Excess ABG Hemoglobin ABG Oxyhemoglobin ABG Sodium ABG Potassium ABG Chloride 96.0 L ABG Glucose 194 H Oxyhemoglobin Carboxyhemoglobin Sodium Potassium Chloride Carbon Dioxide BUN Creatinine Glucose POC Glucose 133 H 221 H Lactic Acid Calcium Magnesium Ferritin Total Bilirubin Direct Bilirubin AST ALT Alkaline Phosphatase Lactate Dehydrogenase C-Reactive Protein Total Protein Albumin Triglycerides Lipase Arterial Blood Glucose 194 H Arterial Blood Ionized Calcium 4.5 L Urine WBC (Auto) Coronavirus (PCR) SARS-CoV-2 IgG Ab Crossmatch 05/29/20 05/30/20 05/30/20 18:07 00:12 05:38 WBC RBC Hgb Hct MCV MCH MCHC RDW Lymph % (Auto) Lymph # (Auto) [place] # (Auto) Baso # (Auto) Seg Neutrophils % Seg Neuts % (Manual) Lymphocytes % (Manual) Nucleated RBC % Seg Neutrophils # Seg Neutrophils # Man Lymphocytes # (Manual) Monocytes # (Manual) Eosinophils # (Manual) PT INR APTT D-Dimer Heparin Anti-Xa Level ABG pH POC ABG pCO2 POC ABG pO2 ABG pO2 ABG HCO3 ABG O2 Saturation ABG Base Excess ABG Hemoglobin ABG Oxyhemoglobin ABG Sodium ABG Potassium ABG Chloride ABG Glucose Oxyhemoglobin Carboxyhemoglobin Sodium Potassium Chloride Carbon Dioxide BUN Creatinine Glucose POC Glucose 162 H 190 H 208 H Lactic Acid Calcium Magnesium Ferritin Total Bilirubin Direct Bilirubin AST ALT Alkaline Phosphatase Lactate Dehydrogenase C-Reactive Protein Total Protein Albumin Triglycerides Lipase Arterial Blood Glucose Arterial Blood Ionized Calcium Urine WBC (Auto) Coronavirus (PCR) SARS-CoV-2 IgG Ab Crossmatch 05/30/20 05/30/20 05/30/20 09:30 11:35 11:54 WBC 12.4 H RBC 3.48 L Hgb 11.3 L Hct 34.6 L MCV 99 H MCH 33 H MCHC RDW Lymph % (Auto) Lymph # (Auto) [place] # (Auto) Baso # (Auto) Seg Neutrophils % Seg Neuts % (Manual) Lymphocytes % (Manual) Nucleated RBC % Seg Neutrophils # Seg Neutrophils # Man Lymphocytes # (Manual) Monocytes # (Manual) Eosinophils # (Manual) PT INR APTT D-Dimer Heparin Anti-Xa Level ABG pH 7.455 H POC ABG pCO2 57.5 H POC ABG pO2 81.5 L ABG pO2 ABG HCO3 ABG O2 Saturation ABG Base Excess ABG Hemoglobin ABG Oxyhemoglobin ABG Sodium ABG Potassium ABG Chloride 96.0 L ABG Glucose 204 H Oxyhemoglobin Carboxyhemoglobin Sodium Potassium Chloride Carbon Dioxide BUN Creatinine Glucose POC Glucose 183 H Lactic Acid Calcium Magnesium Ferritin Total Bilirubin Direct Bilirubin AST ALT Alkaline Phosphatase Lactate Dehydrogenase C-Reactive Protein Total Protein Albumin Triglycerides Lipase Arterial Blood Glucose 204 H Arterial Blood Ionized Calcium Urine WBC (Auto) Coronavirus (PCR) SARS-CoV-2 IgG Ab Crossmatch 05/30/20 05/31/20 05/31/20 18:01 00:10 03:22 WBC RBC Hgb Hct MCV MCH MCHC RDW Lymph % (Auto) Lymph # (Auto) [place] # (Auto) Baso # (Auto) Seg Neutrophils % Seg Neuts % (Manual) Lymphocytes % (Manual) Nucleated RBC % Seg Neutrophils # Seg Neutrophils # Man Lymphocytes # (Manual) Monocytes # (Manual) Eosinophils # (Manual) PT INR APTT D-Dimer Heparin Anti-Xa Level ABG pH POC ABG pCO2 60.4 H POC ABG pO2 71.5 L ABG pO2 ABG HCO3 ABG O2 Saturation ABG Base Excess ABG Hemoglobin ABG Oxyhemoglobin ABG Sodium ABG Potassium ABG Chloride 96.0 L ABG Glucose 169 H Oxyhemoglobin Carboxyhemoglobin Sodium Potassium Chloride Carbon Dioxide BUN Creatinine Glucose POC Glucose 184 H 135 H Lactic Acid Calcium Magnesium Ferritin Total Bilirubin Direct Bilirubin AST ALT Alkaline Phosphatase Lactate Dehydrogenase C-Reactive Protein Total Protein Albumin Triglycerides Lipase Arterial Blood Glucose 169 H Arterial Blood Ionized Calcium 4.5 L Urine WBC (Auto) Coronavirus (PCR) SARS-CoV-2 IgG Ab Crossmatch 05/31/20 05/31/20 05/31/20 05:24 11:18 14:41 WBC RBC Hgb Hct MCV MCH MCHC RDW Lymph % (Auto) Lymph # (Auto) [place] # (Auto) Baso # (Auto) Seg Neutrophils % Seg Neuts % (Manual) Lymphocytes % (Manual) Nucleated RBC % Seg Neutrophils # Seg Neutrophils # Man Lymphocytes # (Manual) Monocytes # (Manual) Eosinophils # (Manual) PT INR APTT D-Dimer Heparin Anti-Xa Level ABG pH POC ABG pCO2 POC ABG pO2 ABG pO2 ABG HCO3 ABG O2 Saturation ABG Base Excess ABG Hemoglobin ABG Oxyhemoglobin ABG Sodium ABG Potassium ABG Chloride ABG Glucose Oxyhemoglobin Carboxyhemoglobin Sodium Potassium Chloride 96.8 L Carbon Dioxide 37 H BUN 31 H Creatinine 0.6 L Glucose 213 H POC Glucose 164 H 208 H Lactic Acid Calcium Magnesium Ferritin Total Bilirubin Direct Bilirubin AST ALT Alkaline Phosphatase Lactate Dehydrogenase C-Reactive Protein Total Protein Albumin Triglycerides Lipase Arterial Blood Glucose Arterial Blood Ionized Calcium Urine WBC (Auto) Coronavirus (PCR) SARS-CoV-2 IgG Ab Crossmatch 05/31/20 05/31/20 06/01/20 17:37 23:47 03:48 WBC RBC Hgb Hct MCV MCH MCHC RDW Lymph % (Auto) Lymph # (Auto) [place] # (Auto) Baso # (Auto) Seg Neutrophils % Seg Neuts % (Manual) Lymphocytes % (Manual) Nucleated RBC % Seg Neutrophils # Seg Neutrophils # Man Lymphocytes # (Manual) Monocytes # (Manual) Eosinophils # (Manual) PT INR APTT D-Dimer Heparin Anti-Xa Level ABG pH POC ABG pCO2 59.7 H POC ABG pO2 73.9 L ABG pO2 ABG HCO3 ABG O2 Saturation ABG Base Excess ABG Hemoglobin ABG Oxyhemoglobin ABG Sodium ABG Potassium ABG Chloride 95.0 L ABG Glucose 256 H Oxyhemoglobin Carboxyhemoglobin Sodium Potassium Chloride Carbon Dioxide BUN Creatinine Glucose POC Glucose 168 H 178 H Lactic Acid Calcium Magnesium Ferritin Total Bilirubin Direct Bilirubin AST ALT Alkaline Phosphatase Lactate Dehydrogenase C-Reactive Protein Total Protein Albumin Triglycerides Lipase Arterial Blood Glucose 256 H Arterial Blood Ionized Calcium Urine WBC (Auto) Coronavirus (PCR) SARS-CoV-2 IgG Ab Crossmatch 06/01/20 06/01/20 06/01/20 05:01 07:47 07:47 WBC 14.4 H RBC 3.46 L Hgb 11.1 L Hct 34.3 L MCV 99 H MCH MCHC RDW Lymph % (Auto) Lymph # (Auto) [place] # (Auto) Baso # (Auto) Seg Neutrophils % Seg Neuts % (Manual) 86.0 H Lymphocytes % (Manual) 9.0 L Nucleated RBC % Seg Neutrophils # Seg Neutrophils # Man 12.4 H Lymphocytes # (Manual) Monocytes # (Manual) Eosinophils # (Manual) PT INR APTT D-Dimer Heparin Anti-Xa Level ABG pH POC ABG pCO2 POC ABG pO2 ABG pO2 ABG HCO3 ABG O2 Saturation ABG Base Excess ABG Hemoglobin ABG Oxyhemoglobin ABG Sodium ABG Potassium ABG Chloride ABG Glucose Oxyhemoglobin Carboxyhemoglobin Sodium Potassium Chloride Carbon Dioxide BUN Creatinine Glucose POC Glucose 197 H Lactic Acid Calcium Magnesium Ferritin Total Bilirubin Direct Bilirubin AST ALT Alkaline Phosphatase Lactate Dehydrogenase C-Reactive Protein Total Protein Albumin Triglycerides 244 H Lipase Arterial Blood Glucose Arterial Blood Ionized Calcium Urine WBC (Auto) Coronavirus (PCR) SARS-CoV-2 IgG Ab Crossmatch 06/01/20 06/01/20 06/01/20 07:47 11:46 18:15 WBC RBC Hgb Hct MCV MCH MCHC RDW Lymph % (Auto) Lymph # (Auto) [place] # (Auto) Baso # (Auto) Seg Neutrophils % Seg Neuts % (Manual) Lymphocytes % (Manual) Nucleated RBC % Seg Neutrophils # Seg Neutrophils # Man Lymphocytes # (Manual) Monocytes # (Manual) Eosinophils # (Manual) PT INR APTT D-Dimer Heparin Anti-Xa Level ABG pH POC ABG pCO2 POC ABG pO2 ABG pO2 ABG HCO3 ABG O2 Saturation ABG Base Excess ABG Hemoglobin ABG Oxyhemoglobin ABG Sodium ABG Potassium ABG Chloride ABG Glucose Oxyhemoglobin Carboxyhemoglobin Sodium Potassium Chloride 95.4 L Carbon Dioxide 35 H BUN 30 H Creatinine 0.5 L Glucose 214 H POC Glucose 181 H 221 H Lactic Acid Calcium Magnesium Ferritin Total Bilirubin Direct Bilirubin AST 54 H ALT 235 H Alkaline Phosphatase Lactate Dehydrogenase C-Reactive Protein Total Protein Albumin 2.9 L Triglycerides Lipase Arterial Blood Glucose Arterial Blood Ionized Calcium Urine WBC (Auto) Coronavirus (PCR) SARS-CoV-2 IgG Ab Crossmatch 06/01/20 06/02/20 06/02/20 23:12 04:00 05:31 WBC RBC Hgb Hct MCV MCH MCHC RDW Lymph % (Auto) Lymph # (Auto) [place] # (Auto) Baso # (Auto) Seg Neutrophils % Seg Neuts % (Manual) Lymphocytes % (Manual) Nucleated RBC % Seg Neutrophils # Seg Neutrophils # Man Lymphocytes # (Manual) Monocytes # (Manual) Eosinophils # (Manual) PT INR APTT D-Dimer Heparin Anti-Xa Level ABG pH 7.465 H POC ABG pCO2 POC ABG pO2 ABG pO2 203.4 H ABG HCO3 41.2 H ABG O2 Saturation 99.3 H ABG Base Excess 15.1 H ABG Hemoglobin 11.5 L ABG Oxyhemoglobin ABG Sodium ABG Potassium ABG Chloride ABG Glucose Oxyhemoglobin Carboxyhemoglobin Sodium Potassium Chloride Carbon Dioxide BUN Creatinine Glucose POC Glucose 197 H 184 H Lactic Acid Calcium Magnesium Ferritin Total Bilirubin Direct Bilirubin AST ALT Alkaline Phosphatase Lactate Dehydrogenase C-Reactive Protein Total Protein Albumin Triglycerides Lipase Arterial Blood Glucose Arterial Blood Ionized Calcium Urine WBC (Auto) Coronavirus (PCR) SARS-CoV-2 IgG Ab Crossmatch 06/02/20 06/02/20 06/02/20 11:49 18:06 23:00 WBC RBC Hgb Hct MCV MCH MCHC RDW Lymph % (Auto) Lymph # (Auto) [place] # (Auto) Baso # (Auto) Seg Neutrophils % Seg Neuts % (Manual) Lymphocytes % (Manual) Nucleated RBC % Seg Neutrophils # Seg Neutrophils # Man Lymphocytes # (Manual) Monocytes # (Manual) Eosinophils # (Manual) PT INR APTT D-Dimer Heparin Anti-Xa Level ABG pH POC ABG pCO2 POC ABG pO2 ABG pO2 ABG HCO3 ABG O2 Saturation ABG Base Excess ABG Hemoglobin ABG Oxyhemoglobin ABG Sodium ABG Potassium ABG Chloride ABG Glucose Oxyhemoglobin Carboxyhemoglobin Sodium Potassium Chloride Carbon Dioxide BUN Creatinine Glucose POC Glucose 195 H 177 H 228 H Lactic Acid Calcium Magnesium Ferritin Total Bilirubin Direct Bilirubin AST ALT Alkaline Phosphatase Lactate Dehydrogenase C-Reactive Protein Total Protein Albumin Triglycerides Lipase Arterial Blood Glucose Arterial Blood Ionized Calcium Urine WBC (Auto) Coronavirus (PCR) SARS-CoV-2 IgG Ab Crossmatch 06/03/20 06/03/20 06/03/20 03:58 05:19 12:21 WBC RBC Hgb Hct MCV MCH MCHC RDW Lymph % (Auto) Lymph # (Auto) [place] # (Auto) Baso # (Auto) Seg Neutrophils % Seg Neuts % (Manual) Lymphocytes % (Manual) Nucleated RBC % Seg Neutrophils # Seg Neutrophils # Man Lymphocytes # (Manual) Monocytes # (Manual) Eosinophils # (Manual) PT INR APTT D-Dimer Heparin Anti-Xa Level ABG pH POC ABG pCO2 POC ABG pO2 ABG pO2 171.0 H ABG HCO3 42.8 H ABG O2 Saturation ABG Base Excess 15.6 H ABG Hemoglobin 12.3 L ABG Oxyhemoglobin ABG Sodium ABG Potassium ABG Chloride ABG Glucose Oxyhemoglobin Carboxyhemoglobin Sodium Potassium Chloride Carbon Dioxide BUN Creatinine Glucose POC Glucose 122 H 207 H Lactic Acid Calcium Magnesium Ferritin Total Bilirubin Direct Bilirubin AST ALT Alkaline Phosphatase Lactate Dehydrogenase C-Reactive Protein Total Protein Albumin Triglycerides Lipase Arterial Blood Glucose Arterial Blood Ionized Calcium Urine WBC (Auto) Coronavirus (PCR) SARS-CoV-2 IgG Ab Crossmatch 06/03/20 06/03/20 06/04/20 17:27 23:50 03:55 WBC RBC Hgb Hct MCV MCH MCHC RDW Lymph % (Auto) Lymph # (Auto) [place] # (Auto) Baso # (Auto) Seg Neutrophils % Seg Neuts % (Manual) Lymphocytes % (Manual) Nucleated RBC % Seg Neutrophils # Seg Neutrophils # Man Lymphocytes # (Manual) Monocytes # (Manual) Eosinophils # (Manual) PT INR APTT D-Dimer Heparin Anti-Xa Level ABG pH POC ABG pCO2 POC ABG pO2 ABG pO2 117.2 H ABG HCO3 42.4 H ABG O2 Saturation ABG Base Excess 15.3 H ABG Hemoglobin 10.5 L ABG Oxyhemoglobin ABG Sodium ABG Potassium ABG Chloride ABG Glucose Oxyhemoglobin Carboxyhemoglobin Sodium Potassium Chloride Carbon Dioxide BUN Creatinine Glucose POC Glucose 157 H 214 H Lactic Acid Calcium Magnesium Ferritin Total Bilirubin Direct Bilirubin AST ALT Alkaline Phosphatase Lactate Dehydrogenase C-Reactive Protein Total Protein Albumin Triglycerides Lipase Arterial Blood Glucose Arterial Blood Ionized Calcium Urine WBC (Auto) Coronavirus (PCR) SARS-CoV-2 IgG Ab Crossmatch 06/04/20 06/04/20 06/04/20 05:49 11:41 17:30 WBC RBC Hgb Hct MCV MCH MCHC RDW Lymph % (Auto) Lymph # (Auto) [place] # (Auto) Baso # (Auto) Seg Neutrophils % Seg Neuts % (Manual) Lymphocytes % (Manual) Nucleated RBC % Seg Neutrophils # Seg Neutrophils # Man Lymphocytes # (Manual) Monocytes # (Manual) Eosinophils # (Manual) PT INR APTT D-Dimer Heparin Anti-Xa Level ABG pH POC ABG pCO2 POC ABG pO2 ABG pO2 ABG HCO3 ABG O2 Saturation ABG Base Excess ABG Hemoglobin ABG Oxyhemoglobin ABG Sodium ABG Potassium ABG Chloride ABG Glucose Oxyhemoglobin Carboxyhemoglobin Sodium Potassium Chloride Carbon Dioxide BUN Creatinine Glucose POC Glucose 149 H 233 H 156 H Lactic Acid Calcium Magnesium Ferritin Total Bilirubin Direct Bilirubin AST ALT Alkaline Phosphatase Lactate Dehydrogenase C-Reactive Protein Total Protein Albumin Triglycerides Lipase Arterial Blood Glucose Arterial Blood Ionized Calcium Urine WBC (Auto) Coronavirus (PCR) SARS-CoV-2 IgG Ab Crossmatch 06/04/20 06/04/20 06/04/20 19:01 20:53 23:41 WBC RBC 3.18 L Hgb 10.8 L Hct 31.8 L MCV 100 H MCH 34 H MCHC RDW Lymph % (Auto) Lymph # (Auto) [place] # (Auto) Baso # (Auto) Seg Neutrophils % Seg Neuts % (Manual) 86.0 H Lymphocytes % (Manual) 10.0 L Nucleated RBC % 1.0 H Seg Neutrophils # Seg Neutrophils # Man 8.5 H Lymphocytes # (Manual) 1.0 L Monocytes # (Manual) Eosinophils # (Manual) PT INR APTT D-Dimer Heparin Anti-Xa Level ABG pH POC ABG pCO2 POC ABG pO2 ABG pO2 ABG HCO3 ABG O2 Saturation ABG Base Excess ABG Hemoglobin ABG Oxyhemoglobin ABG Sodium ABG Potassium ABG Chloride ABG Glucose Oxyhemoglobin Carboxyhemoglobin Sodium Potassium 3.4 L D Chloride 96.5 L Carbon Dioxide 41 H* BUN 27 H Creatinine 0.5 L Glucose 173 H POC Glucose 217 H Lactic Acid Calcium Magnesium Ferritin Total Bilirubin Direct Bilirubin AST ALT Alkaline Phosphatase Lactate Dehydrogenase C-Reactive Protein Total Protein Albumin Triglycerides Lipase Arterial Blood Glucose Arterial Blood Ionized Calcium Urine WBC (Auto) Coronavirus (PCR) SARS-CoV-2 IgG Ab Crossmatch 06/05/20 06/05/20 06/05/20 06:05 11:54 12:35 WBC RBC Hgb Hct MCV MCH MCHC RDW Lymph % (Auto) Lymph # (Auto) [place] # (Auto) Baso # (Auto) Seg Neutrophils % Seg Neuts % (Manual) Lymphocytes % (Manual) Nucleated RBC % Seg Neutrophils # Seg Neutrophils # Man Lymphocytes # (Manual) Monocytes # (Manual) Eosinophils # (Manual) PT INR APTT D-Dimer Heparin Anti-Xa Level ABG pH POC ABG pCO2 POC ABG pO2 ABG pO2 127.9 H ABG HCO3 41.1 H ABG O2 Saturation ABG Base Excess 13.0 H ABG Hemoglobin 13.4 L ABG Oxyhemoglobin ABG Sodium ABG Potassium ABG Chloride ABG Glucose Oxyhemoglobin Carboxyhemoglobin Sodium Potassium Chloride Carbon Dioxide BUN Creatinine Glucose POC Glucose 137 H 211 H Lactic Acid Calcium Magnesium Ferritin Total Bilirubin Direct Bilirubin AST ALT Alkaline Phosphatase Lactate Dehydrogenase C-Reactive Protein Total Protein Albumin Triglycerides Lipase Arterial Blood Glucose Arterial Blood Ionized Calcium Urine WBC (Auto) Coronavirus (PCR) SARS-CoV-2 IgG Ab Crossmatch 06/05/20 06/05/20 06/06/20 17:03 23:49 04:42 WBC RBC Hgb Hct MCV MCH MCHC RDW Lymph % (Auto) Lymph # (Auto) [place] # (Auto) Baso # (Auto) Seg Neutrophils % Seg Neuts % (Manual) Lymphocytes % (Manual) Nucleated RBC % Seg Neutrophils # Seg Neutrophils # Man Lymphocytes # (Manual) Monocytes # (Manual) Eosinophils # (Manual) PT INR APTT D-Dimer Heparin Anti-Xa Level ABG pH POC ABG pCO2 56.1 H POC ABG pO2 52.5 L ABG pO2 ABG HCO3 ABG O2 Saturation ABG Base Excess ABG Hemoglobin 11.7 L ABG Oxyhemoglobin ABG Sodium ABG Potassium 3.3 L ABG Chloride 95.0 L ABG Glucose 156 H Oxyhemoglobin Carboxyhemoglobin Sodium Potassium Chloride Carbon Dioxide BUN Creatinine Glucose POC Glucose 159 H 194 H Lactic Acid Calcium Magnesium Ferritin Total Bilirubin Direct Bilirubin AST ALT Alkaline Phosphatase Lactate Dehydrogenase C-Reactive Protein Total Protein Albumin Triglycerides Lipase Arterial Blood Glucose 156 H Arterial Blood Ionized Calcium Urine WBC (Auto) Coronavirus (PCR) SARS-CoV-2 IgG Ab Crossmatch 06/06/20 06/06/20 06/06/20 05:57 12:06 17:38 WBC RBC Hgb Hct MCV MCH MCHC RDW Lymph % (Auto) Lymph # (Auto) [place] # (Auto) Baso # (Auto) Seg Neutrophils % Seg Neuts % (Manual) Lymphocytes % (Manual) Nucleated RBC % Seg Neutrophils # Seg Neutrophils # Man Lymphocytes # (Manual) Monocytes # (Manual) Eosinophils # (Manual) PT INR APTT D-Dimer Heparin Anti-Xa Level ABG pH POC ABG pCO2 POC ABG pO2 ABG pO2 ABG HCO3 ABG O2 Saturation ABG Base Excess ABG Hemoglobin ABG Oxyhemoglobin ABG Sodium ABG Potassium ABG Chloride ABG Glucose Oxyhemoglobin Carboxyhemoglobin Sodium Potassium Chloride Carbon Dioxide BUN Creatinine Glucose POC Glucose 144 H 230 H 162 H Lactic Acid Calcium Magnesium Ferritin Total Bilirubin Direct Bilirubin AST ALT Alkaline Phosphatase Lactate Dehydrogenase C-Reactive Protein Total Protein Albumin Triglycerides Lipase Arterial Blood Glucose Arterial Blood Ionized Calcium Urine WBC (Auto) Coronavirus (PCR) SARS-CoV-2 IgG Ab Crossmatch 06/06/20 06/07/20 06/07/20 23:50 04:34 06:03 WBC RBC Hgb Hct MCV MCH MCHC RDW Lymph % (Auto) Lymph # (Auto) [place] # (Auto) Baso # (Auto) Seg Neutrophils % Seg Neuts % (Manual) Lymphocytes % (Manual) Nucleated RBC % Seg Neutrophils # Seg Neutrophils # Man Lymphocytes # (Manual) Monocytes # (Manual) Eosinophils # (Manual) PT INR APTT D-Dimer Heparin Anti-Xa Level ABG pH 7.511 H POC ABG pCO2 53.5 H POC ABG pO2 114.5 H ABG pO2 ABG HCO3 ABG O2 Saturation ABG Base Excess ABG Hemoglobin 9.4 L ABG Oxyhemoglobin ABG Sodium 134.5 L ABG Potassium ABG Chloride 94.0 L ABG Glucose 186 H Oxyhemoglobin Carboxyhemoglobin Sodium Potassium Chloride Carbon Dioxide BUN Creatinine Glucose POC Glucose 181 H 155 H Lactic Acid Calcium Magnesium Ferritin Total Bilirubin Direct Bilirubin AST ALT Alkaline Phosphatase Lactate Dehydrogenase C-Reactive Protein Total Protein Albumin Triglycerides Lipase Arterial Blood Glucose 186 H Arterial Blood Ionized Calcium 4.5 L Urine WBC (Auto) Coronavirus (PCR) SARS-CoV-2 IgG Ab Crossmatch 06/07/20 06/07/20 06/07/20 13:41 14:58 14:58 WBC RBC 2.72 L Hgb 9.3 L Hct 27.2 L MCV 100 H MCH 34 H MCHC RDW Lymph % (Auto) Lymph # (Auto) [place] # (Auto) Baso # (Auto) Seg Neutrophils % Seg Neuts % (Manual) Lymphocytes % (Manual) Nucleated RBC % Seg Neutrophils # Seg Neutrophils # Man Lymphocytes # (Manual) Monocytes # (Manual) Eosinophils # (Manual) PT INR APTT D-Dimer Heparin Anti-Xa Level ABG pH POC ABG pCO2 POC ABG pO2 ABG pO2 ABG HCO3 ABG O2 Saturation ABG Base Excess ABG Hemoglobin ABG Oxyhemoglobin ABG Sodium ABG Potassium ABG Chloride ABG Glucose Oxyhemoglobin Carboxyhemoglobin Sodium Potassium Chloride 93.5 L Carbon Dioxide 39 H BUN 22 H Creatinine 0.4 L Glucose 188 H POC Glucose 201 H Lactic Acid Calcium Magnesium Ferritin Total Bilirubin Direct Bilirubin AST 61 H ALT 273 H Alkaline Phosphatase Lactate Dehydrogenase C-Reactive Protein Total Protein 5.9 L Albumin 2.7 L Triglycerides Lipase Arterial Blood Glucose Arterial Blood Ionized Calcium Urine WBC (Auto) Coronavirus (PCR) SARS-CoV-2 IgG Ab Crossmatch 06/07/20 06/08/20 06/08/20 23:18 05:31 12:07 WBC RBC Hgb Hct MCV MCH MCHC RDW Lymph % (Auto) Lymph # (Auto) [place] # (Auto) Baso # (Auto) Seg Neutrophils % Seg Neuts % (Manual) Lymphocytes % (Manual) Nucleated RBC % Seg Neutrophils # Seg Neutrophils # Man Lymphocytes # (Manual) Monocytes # (Manual) Eosinophils # (Manual) PT INR APTT D-Dimer Heparin Anti-Xa Level ABG pH POC ABG pCO2 POC ABG pO2 ABG pO2 ABG HCO3 ABG O2 Saturation ABG Base Excess ABG Hemoglobin ABG Oxyhemoglobin ABG Sodium ABG Potassium ABG Chloride ABG Glucose Oxyhemoglobin Carboxyhemoglobin Sodium Potassium Chloride Carbon Dioxide BUN Creatinine Glucose POC Glucose 214 H 129 H 179 H Lactic Acid Calcium Magnesium Ferritin Total Bilirubin Direct Bilirubin AST ALT Alkaline Phosphatase Lactate Dehydrogenase C-Reactive Protein Total Protein Albumin Triglycerides Lipase Arterial Blood Glucose Arterial Blood Ionized Calcium Urine WBC (Auto) Coronavirus (PCR) SARS-CoV-2 IgG Ab Crossmatch 06/08/20 06/08/20 06/09/20 18:18 23:35 05:42 WBC RBC Hgb Hct MCV MCH MCHC RDW Lymph % (Auto) Lymph # (Auto) [place] # (Auto) Baso # (Auto) Seg Neutrophils % Seg Neuts % (Manual) Lymphocytes % (Manual) Nucleated RBC % Seg Neutrophils # Seg Neutrophils # Man Lymphocytes # (Manual) Monocytes # (Manual) Eosinophils # (Manual) PT INR APTT D-Dimer Heparin Anti-Xa Level ABG pH POC ABG pCO2 POC ABG pO2 ABG pO2 ABG HCO3 ABG O2 Saturation ABG Base Excess ABG Hemoglobin ABG Oxyhemoglobin ABG Sodium ABG Potassium ABG Chloride ABG Glucose Oxyhemoglobin Carboxyhemoglobin Sodium Potassium Chloride Carbon Dioxide BUN Creatinine Glucose POC Glucose 172 H 177 H 137 H Lactic Acid Calcium Magnesium Ferritin Total Bilirubin Direct Bilirubin AST ALT Alkaline Phosphatase Lactate Dehydrogenase C-Reactive Protein Total Protein Albumin Triglycerides Lipase Arterial Blood Glucose Arterial Blood Ionized Calcium Urine WBC (Auto) Coronavirus (PCR) SARS-CoV-2 IgG Ab Crossmatch 06/09/20 06/09/20 06/09/20 06:20 07:55 07:55 WBC 12.4 H RBC 3.26 L Hgb 11.1 L Hct 33.4 L D MCV 102 H MCH 34 H MCHC RDW Lymph % (Auto) Lymph # (Auto) [place] # (Auto) Baso # (Auto) Seg Neutrophils % Seg Neuts % (Manual) Lymphocytes % (Manual) Nucleated RBC % Seg Neutrophils # Seg Neutrophils # Man Lymphocytes # (Manual) Monocytes # (Manual) Eosinophils # (Manual) PT INR APTT D-Dimer Heparin Anti-Xa Level ABG pH 7.466 H POC ABG pCO2 50.7 H POC ABG pO2 53.0 L ABG pO2 ABG HCO3 ABG O2 Saturation ABG Base Excess ABG Hemoglobin ABG Oxyhemoglobin ABG Sodium ABG Potassium 2.9 L ABG Chloride 93.0 L ABG Glucose 138 H Oxyhemoglobin Carboxyhemoglobin Sodium Potassium 3.0 L Chloride 92.3 L Carbon Dioxide 37 H BUN 21 H Creatinine 0.6 L Glucose 120 H POC Glucose Lactic Acid Calcium Magnesium Ferritin Total Bilirubin Direct Bilirubin AST ALT Alkaline Phosphatase Lactate Dehydrogenase C-Reactive Protein Total Protein Albumin Triglycerides Lipase Arterial Blood Glucose 138 H Arterial Blood Ionized Calcium 4.5 L Urine WBC (Auto) Coronavirus (PCR) SARS-CoV-2 IgG Ab Crossmatch 06/09/20 06/09/20 06/10/20 11:22 18:32 04:46 WBC RBC Hgb Hct MCV MCH MCHC RDW Lymph % (Auto) Lymph # (Auto) [place] # (Auto) Baso # (Auto) Seg Neutrophils % Seg Neuts % (Manual) Lymphocytes % (Manual) Nucleated RBC % Seg Neutrophils # Seg Neutrophils # Man Lymphocytes # (Manual) Monocytes # (Manual) Eosinophils # (Manual) PT INR APTT D-Dimer Heparin Anti-Xa Level ABG pH 7.501 H POC ABG pCO2 POC ABG pO2 126.5 H ABG pO2 ABG HCO3 ABG O2 Saturation ABG Base Excess ABG Hemoglobin 10.3 L ABG Oxyhemoglobin ABG Sodium ABG Potassium ABG Chloride ABG Glucose 220 H Oxyhemoglobin Carboxyhemoglobin Sodium Potassium Chloride Carbon Dioxide BUN Creatinine Glucose POC Glucose 117 H 121 H Lactic Acid Calcium Magnesium Ferritin Total Bilirubin Direct Bilirubin AST ALT Alkaline Phosphatase Lactate Dehydrogenase C-Reactive Protein Total Protein Albumin Triglycerides Lipase Arterial Blood Glucose 220 H Arterial Blood Ionized Calcium Urine WBC (Auto) Coronavirus (PCR) SARS-CoV-2 IgG Ab Crossmatch 06/10/20 06/10/20 06/10/20 05:30 09:38 12:03 WBC RBC Hgb Hct MCV MCH MCHC RDW Lymph % (Auto) Lymph # (Auto) [place] # (Auto) Baso # (Auto) Seg Neutrophils % Seg Neuts % (Manual) Lymphocytes % (Manual) Nucleated RBC % Seg Neutrophils # Seg Neutrophils # Man Lymphocytes # (Manual) Monocytes # (Manual) Eosinophils # (Manual) PT INR APTT D-Dimer Heparin Anti-Xa Level ABG pH POC ABG pCO2 POC ABG pO2 ABG pO2 ABG HCO3 ABG O2 Saturation ABG Base Excess ABG Hemoglobin ABG Oxyhemoglobin ABG Sodium ABG Potassium ABG Chloride ABG Glucose Oxyhemoglobin Carboxyhemoglobin Sodium Potassium Chloride Carbon Dioxide BUN Creatinine Glucose POC Glucose 181 H 204 H Lactic Acid Calcium Magnesium Ferritin Total Bilirubin Direct Bilirubin AST ALT Alkaline Phosphatase Lactate Dehydrogenase C-Reactive Protein Total Protein Albumin Triglycerides 738 H Lipase Arterial Blood Glucose Arterial Blood Ionized Calcium Urine WBC (Auto) Coronavirus (PCR) SARS-CoV-2 IgG Ab Crossmatch 06/10/20 06/11/20 06/11/20 17:17 00:04 04:38 WBC RBC Hgb Hct MCV MCH MCHC RDW Lymph % (Auto) Lymph # (Auto) [place] # (Auto) Baso # (Auto) Seg Neutrophils % Seg Neuts % (Manual) Lymphocytes % (Manual) Nucleated RBC % Seg Neutrophils # Seg Neutrophils # Man Lymphocytes # (Manual) Monocytes # (Manual) Eosinophils # (Manual) PT INR APTT D-Dimer Heparin Anti-Xa Level ABG pH 7.479 H POC ABG pCO2 POC ABG pO2 76.7 L ABG pO2 ABG HCO3 ABG O2 Saturation ABG Base Excess ABG Hemoglobin 9.8 L ABG Oxyhemoglobin ABG Sodium 135.8 L ABG Potassium ABG Chloride ABG Glucose 238 H Oxyhemoglobin Carboxyhemoglobin Sodium Potassium Chloride Carbon Dioxide BUN Creatinine Glucose POC Glucose 156 H 178 H Lactic Acid Calcium Magnesium Ferritin Total Bilirubin Direct Bilirubin AST ALT Alkaline Phosphatase Lactate Dehydrogenase C-Reactive Protein Total Protein Albumin Triglycerides Lipase Arterial Blood Glucose 238 H Arterial Blood Ionized Calcium Urine WBC (Auto) Coronavirus (PCR) SARS-CoV-2 IgG Ab Crossmatch 06/11/20 06/11/20 06/11/20 05:21 06:52 11:50 WBC RBC Hgb Hct MCV MCH MCHC RDW Lymph % (Auto) Lymph # (Auto) [place] # (Auto) Baso # (Auto) Seg Neutrophils % Seg Neuts % (Manual) Lymphocytes % (Manual) Nucleated RBC % Seg Neutrophils # Seg Neutrophils # Man Lymphocytes # (Manual) Monocytes # (Manual) Eosinophils # (Manual) PT INR APTT D-Dimer Heparin Anti-Xa Level ABG pH POC ABG pCO2 POC ABG pO2 ABG pO2 ABG HCO3 ABG O2 Saturation ABG Base Excess ABG Hemoglobin ABG Oxyhemoglobin ABG Sodium ABG Potassium ABG Chloride ABG Glucose Oxyhemoglobin Carboxyhemoglobin Sodium Potassium Chloride Carbon Dioxide BUN Creatinine Glucose POC Glucose 215 H 187 H Lactic Acid Calcium Magnesium Ferritin Total Bilirubin Direct Bilirubin AST ALT Alkaline Phosphatase Lactate Dehydrogenase C-Reactive Protein Total Protein Albumin Triglycerides 331 H Lipase Arterial Blood Glucose Arterial Blood Ionized Calcium Urine WBC (Auto) Coronavirus (PCR) SARS-CoV-2 IgG Ab Crossmatch 06/11/20 06/11/20 06/12/20 17:49 23:35 04:52 WBC RBC Hgb Hct MCV MCH MCHC RDW Lymph % (Auto) Lymph # (Auto) [place] # (Auto) Baso # (Auto) Seg Neutrophils % Seg Neuts % (Manual) Lymphocytes % (Manual) Nucleated RBC % Seg Neutrophils # Seg Neutrophils # Man Lymphocytes # (Manual) Monocytes # (Manual) Eosinophils # (Manual) PT INR APTT D-Dimer Heparin Anti-Xa Level ABG pH 7.486 H POC ABG pCO2 POC ABG pO2 ABG pO2 ABG HCO3 ABG O2 Saturation ABG Base Excess ABG Hemoglobin 9.4 L ABG Oxyhemoglobin ABG Sodium ABG Potassium 3.2 L ABG Chloride ABG Glucose 209 H Oxyhemoglobin Carboxyhemoglobin Sodium Potassium Chloride Carbon Dioxide BUN Creatinine Glucose POC Glucose 211 H 200 H Lactic Acid Calcium Magnesium Ferritin Total Bilirubin Direct Bilirubin AST ALT Alkaline Phosphatase Lactate Dehydrogenase C-Reactive Protein Total Protein Albumin Triglycerides Lipase Arterial Blood Glucose 209 H Arterial Blood Ionized Calcium Urine WBC (Auto) Coronavirus (PCR) SARS-CoV-2 IgG Ab Crossmatch 06/12/20 06/12/20 06/12/20 05:13 11:47 18:33 WBC RBC Hgb Hct MCV MCH MCHC RDW Lymph % (Auto) Lymph # (Auto) [place] # (Auto) Baso # (Auto) Seg Neutrophils % Seg Neuts % (Manual) Lymphocytes % (Manual) Nucleated RBC % Seg Neutrophils # Seg Neutrophils # Man Lymphocytes # (Manual) Monocytes # (Manual) Eosinophils # (Manual) PT INR APTT D-Dimer Heparin Anti-Xa Level ABG pH POC ABG pCO2 POC ABG pO2 ABG pO2 ABG HCO3 ABG O2 Saturation ABG Base Excess ABG Hemoglobin ABG Oxyhemoglobin ABG Sodium ABG Potassium ABG Chloride ABG Glucose Oxyhemoglobin Carboxyhemoglobin Sodium Potassium Chloride Carbon Dioxide BUN Creatinine Glucose POC Glucose 174 H 214 H 194 H Lactic Acid Calcium Magnesium Ferritin Total Bilirubin Direct Bilirubin AST ALT Alkaline Phosphatase Lactate Dehydrogenase C-Reactive Protein Total Protein Albumin Triglycerides Lipase Arterial Blood Glucose Arterial Blood Ionized Calcium Urine WBC (Auto) Coronavirus (PCR) SARS-CoV-2 IgG Ab Crossmatch 06/12/20 06/13/20 06/13/20 23:49 05:41 12:30 WBC RBC Hgb Hct MCV MCH MCHC RDW Lymph % (Auto) Lymph # (Auto) [place] # (Auto) Baso # (Auto) Seg Neutrophils % Seg Neuts % (Manual) Lymphocytes % (Manual) Nucleated RBC % Seg Neutrophils # Seg Neutrophils # Man Lymphocytes # (Manual) Monocytes # (Manual) Eosinophils # (Manual) PT INR APTT D-Dimer Heparin Anti-Xa Level ABG pH POC ABG pCO2 POC ABG pO2 ABG pO2 ABG HCO3 ABG O2 Saturation ABG Base Excess ABG Hemoglobin ABG Oxyhemoglobin ABG Sodium ABG Potassium ABG Chloride ABG Glucose Oxyhemoglobin Carboxyhemoglobin Sodium Potassium Chloride Carbon Dioxide BUN Creatinine Glucose POC Glucose 160 H 150 H 181 H Lactic Acid Calcium Magnesium Ferritin Total Bilirubin Direct Bilirubin AST ALT Alkaline Phosphatase Lactate Dehydrogenase C-Reactive Protein Total Protein Albumin Triglycerides Lipase Arterial Blood Glucose Arterial Blood Ionized Calcium Urine WBC (Auto) Coronavirus (PCR) SARS-CoV-2 IgG Ab Crossmatch 06/13/20 06/13/20 06/13/20 14:14 17:48 23:27 WBC 12.8 H RBC 2.33 L Hgb 8.0 L Hct 23.3 L MCV 100 H MCH 34 H MCHC RDW 15.7 H Lymph % (Auto) Lymph # (Auto) [place] # (Auto) Baso # (Auto) Seg Neutrophils % Seg Neuts % (Manual) 85.0 H Lymphocytes % (Manual) 10.0 L Nucleated RBC % Seg Neutrophils # Seg Neutrophils # Man 10.9 H Lymphocytes # (Manual) Monocytes # (Manual) Eosinophils # (Manual) PT INR APTT D-Dimer Heparin Anti-Xa Level ABG pH POC ABG pCO2 POC ABG pO2 ABG pO2 ABG HCO3 ABG O2 Saturation ABG Base Excess ABG Hemoglobin ABG Oxyhemoglobin ABG Sodium ABG Potassium ABG Chloride ABG Glucose Oxyhemoglobin Carboxyhemoglobin Sodium Potassium Chloride Carbon Dioxide BUN Creatinine Glucose POC Glucose 173 H 154 H Lactic Acid Calcium Magnesium Ferritin Total Bilirubin Direct Bilirubin AST ALT Alkaline Phosphatase Lactate Dehydrogenase C-Reactive Protein Total Protein Albumin Triglycerides Lipase Arterial Blood Glucose Arterial Blood Ionized Calcium Urine WBC (Auto) Coronavirus (PCR) SARS-CoV-2 IgG Ab Crossmatch 06/14/20 06/14/20 06/14/20 03:58 05:21 07:15 WBC 26.2 H RBC 2.97 L Hgb 9.7 L Hct 29.9 L D MCV 101 H MCH 33 H MCHC RDW 15.3 H Lymph % (Auto) Lymph # (Auto) [place] # (Auto) Baso # (Auto) Seg Neutrophils % Seg Neuts % (Manual) 79.0 H Lymphocytes % (Manual) 5.0 L Nucleated RBC % 3.0 H Seg Neutrophils # Seg Neutrophils # Man 20.7 H Lymphocytes # (Manual) Monocytes # (Manual) 1.3 H Eosinophils # (Manual) PT INR APTT D-Dimer Heparin Anti-Xa Level ABG pH POC ABG pCO2 51.5 H POC ABG pO2 70.0 L ABG pO2 ABG HCO3 ABG O2 Saturation ABG Base Excess ABG Hemoglobin 10.1 L ABG Oxyhemoglobin ABG Sodium 131.5 L ABG Potassium 3.1 L ABG Chloride 93.0 L ABG Glucose 188 H Oxyhemoglobin Carboxyhemoglobin Sodium Potassium Chloride Carbon Dioxide BUN Creatinine Glucose POC Glucose 147 H Lactic Acid Calcium Magnesium Ferritin Total Bilirubin Direct Bilirubin AST ALT Alkaline Phosphatase Lactate Dehydrogenase C-Reactive Protein Total Protein Albumin Triglycerides Lipase Arterial Blood Glucose 188 H Arterial Blood Ionized Calcium Urine WBC (Auto) Coronavirus (PCR) SARS-CoV-2 IgG Ab Crossmatch 06/14/20 06/14/20 06/14/20 07:15 11:30 11:50 WBC RBC Hgb Hct MCV MCH MCHC RDW Lymph % (Auto) Lymph # (Auto) [place] # (Auto) Baso # (Auto) Seg Neutrophils % Seg Neuts % (Manual) Lymphocytes % (Manual) Nucleated RBC % Seg Neutrophils # Seg Neutrophils # Man Lymphocytes # (Manual) Monocytes # (Manual) Eosinophils # (Manual) PT INR APTT D-Dimer Heparin Anti-Xa Level ABG pH POC ABG pCO2 POC ABG pO2 ABG pO2 ABG HCO3 ABG O2 Saturation ABG Base Excess ABG Hemoglobin ABG Oxyhemoglobin ABG Sodium ABG Potassium ABG Chloride ABG Glucose Oxyhemoglobin Carboxyhemoglobin Sodium 135 L Potassium 3.5 L Chloride 90.4 L Carbon Dioxide 38 H BUN Creatinine 0.5 L Glucose 190 H POC Glucose 176 H Lactic Acid Calcium Magnesium Ferritin 1496.0 H Total Bilirubin Direct Bilirubin AST ALT 81 H Alkaline Phosphatase Lactate Dehydrogenase C-Reactive Protein Total Protein Albumin 2.9 L Triglycerides Lipase Arterial Blood Glucose Arterial Blood Ionized Calcium Urine WBC (Auto) Coronavirus (PCR) SARS-CoV-2 IgG Ab Crossmatch 06/14/20 06/15/20 06/15/20 23:31 04:00 05:00 WBC RBC Hgb Hct MCV MCH MCHC RDW Lymph % (Auto) Lymph # (Auto) [place] # (Auto) Baso # (Auto) Seg Neutrophils % Seg Neuts % (Manual) Lymphocytes % (Manual) Nucleated RBC % Seg Neutrophils # Seg Neutrophils # Man Lymphocytes # (Manual) Monocytes # (Manual) Eosinophils # (Manual) PT INR APTT D-Dimer Heparin Anti-Xa Level ABG pH POC ABG pCO2 POC ABG pO2 ABG pO2 ABG HCO3 ABG O2 Saturation ABG Base Excess ABG Hemoglobin ABG Oxyhemoglobin ABG Sodium ABG Potassium ABG Chloride ABG Glucose Oxyhemoglobin Carboxyhemoglobin Sodium 133 L Potassium Chloride 91.1 L Carbon Dioxide 34 H BUN Creatinine 0.4 L Glucose 159 H POC Glucose 200 H Lactic Acid Calcium Magnesium Ferritin Total Bilirubin 2.00 H Direct Bilirubin AST 47 H ALT 77 H Alkaline Phosphatase Lactate Dehydrogenase C-Reactive Protein Total Protein Albumin 2.6 L Triglycerides 152 H Lipase Arterial Blood Glucose Arterial Blood Ionized Calcium Urine WBC (Auto) Coronavirus (PCR) SARS-CoV-2 IgG Ab Crossmatch 06/15/20 06/15/20 06/15/20 05:35 06:27 11:38 WBC RBC Hgb Hct MCV MCH MCHC RDW Lymph % (Auto) Lymph # (Auto) [place] # (Auto) Baso # (Auto) Seg Neutrophils % Seg Neuts % (Manual) Lymphocytes % (Manual) Nucleated RBC % Seg Neutrophils # Seg Neutrophils # Man Lymphocytes # (Manual) Monocytes # (Manual) Eosinophils # (Manual) PT INR APTT D-Dimer Heparin Anti-Xa Level ABG pH POC ABG pCO2 61.0 H POC ABG pO2 67.9 L ABG pO2 ABG HCO3 ABG O2 Saturation ABG Base Excess ABG Hemoglobin 10.4 L ABG Oxyhemoglobin ABG Sodium 132.7 L ABG Potassium 3.3 L ABG Chloride 92.0 L ABG Glucose 158 H Oxyhemoglobin Carboxyhemoglobin Sodium Potassium Chloride Carbon Dioxide BUN Creatinine Glucose POC Glucose 148 H 197 H Lactic Acid Calcium Magnesium Ferritin Total Bilirubin Direct Bilirubin AST ALT Alkaline Phosphatase Lactate Dehydrogenase C-Reactive Protein Total Protein Albumin Triglycerides Lipase Arterial Blood Glucose 158 H Arterial Blood Ionized Calcium Urine WBC (Auto) Coronavirus (PCR) SARS-CoV-2 IgG Ab Crossmatch 06/15/20 06/15/20 06/16/20 17:29 Unknown 00:01 WBC 20.7 H RBC 2.57 L Hgb 8.9 L Hct 25.8 L MCV 101 H MCH 35 H MCHC 35 H RDW 16.0 H Lymph % (Auto) Lymph # (Auto) [place] # (Auto) Baso # (Auto) Seg Neutrophils % Seg Neuts % (Manual) 83.0 H Lymphocytes % (Manual) 8.0 L Nucleated RBC % Seg Neutrophils # Seg Neutrophils # Man 17.2 H Lymphocytes # (Manual) Monocytes # (Manual) 1.2 H Eosinophils # (Manual) PT INR APTT D-Dimer Heparin Anti-Xa Level ABG pH POC ABG pCO2 POC ABG pO2 ABG pO2 ABG HCO3 ABG O2 Saturation ABG Base Excess ABG Hemoglobin ABG Oxyhemoglobin ABG Sodium ABG Potassium ABG Chloride ABG Glucose Oxyhemoglobin Carboxyhemoglobin Sodium Potassium Chloride Carbon Dioxide BUN Creatinine Glucose POC Glucose 231 H 257 H Lactic Acid Calcium Magnesium Ferritin Total Bilirubin Direct Bilirubin AST ALT Alkaline Phosphatase Lactate Dehydrogenase C-Reactive Protein Total Protein Albumin Triglycerides Lipase Arterial Blood Glucose Arterial Blood Ionized Calcium Urine WBC (Auto) Coronavirus (PCR) SARS-CoV-2 IgG Ab Crossmatch 06/16/20 06/16/20 06/16/20 04:00 04:00 05:22 WBC 13.8 H RBC 2.03 L Hgb 7.6 L Hct 20.7 L MCV 102 H MCH 37 H MCHC 37 H RDW 16.2 H Lymph % (Auto) 4.4 L Lymph # (Auto) 0.6 L [place] # (Auto) Baso # (Auto) Seg Neutrophils % Seg Neuts % (Manual) Lymphocytes % (Manual) Nucleated RBC % Seg Neutrophils # 12.7 H Seg Neutrophils # Man Lymphocytes # (Manual) Monocytes # (Manual) Eosinophils # (Manual) PT INR APTT D-Dimer Heparin Anti-Xa Level ABG pH POC ABG pCO2 POC ABG pO2 ABG pO2 ABG HCO3 ABG O2 Saturation ABG Base Excess ABG Hemoglobin ABG Oxyhemoglobin ABG Sodium ABG Potassium ABG Chloride ABG Glucose Oxyhemoglobin Carboxyhemoglobin Sodium 130 L Potassium Chloride 88.9 L Carbon Dioxide 36 H BUN Creatinine 0.3 L Glucose 276 H POC Glucose 250 H Lactic Acid Calcium Magnesium Ferritin Total Bilirubin Direct Bilirubin AST ALT Alkaline Phosphatase Lactate Dehydrogenase C-Reactive Protein Total Protein Albumin Triglycerides Lipase Arterial Blood Glucose Arterial Blood Ionized Calcium Urine WBC (Auto) Coronavirus (PCR) SARS-CoV-2 IgG Ab Crossmatch 06/16/20 06/16/20 06/17/20 12:44 18:18 00:39 WBC RBC Hgb Hct MCV MCH MCHC RDW Lymph % (Auto) Lymph # (Auto) [place] # (Auto) Baso # (Auto) Seg Neutrophils % Seg Neuts % (Manual) Lymphocytes % (Manual) Nucleated RBC % Seg Neutrophils # Seg Neutrophils # Man Lymphocytes # (Manual) Monocytes # (Manual) Eosinophils # (Manual) PT INR APTT D-Dimer Heparin Anti-Xa Level ABG pH POC ABG pCO2 POC ABG pO2 ABG pO2 ABG HCO3 ABG O2 Saturation ABG Base Excess ABG Hemoglobin ABG Oxyhemoglobin ABG Sodium ABG Potassium ABG Chloride ABG Glucose Oxyhemoglobin Carboxyhemoglobin Sodium Potassium Chloride Carbon Dioxide BUN Creatinine Glucose POC Glucose 279 H 239 H 247 H Lactic Acid Calcium Magnesium Ferritin Total Bilirubin Direct Bilirubin AST ALT Alkaline Phosphatase Lactate Dehydrogenase C-Reactive Protein Total Protein Albumin Triglycerides Lipase Arterial Blood Glucose Arterial Blood Ionized Calcium Urine WBC (Auto) Coronavirus (PCR) SARS-CoV-2 IgG Ab Crossmatch 06/17/20 06/17/20 06/17/20 03:40 04:08 10:54 WBC RBC Hgb Hct MCV MCH MCHC RDW Lymph % (Auto) Lymph # (Auto) [place] # (Auto) Baso # (Auto) Seg Neutrophils % Seg Neuts % (Manual) Lymphocytes % (Manual) Nucleated RBC % Seg Neutrophils # Seg Neutrophils # Man Lymphocytes # (Manual) Monocytes # (Manual) Eosinophils # (Manual) PT INR APTT D-Dimer Heparin Anti-Xa Level ABG pH POC ABG pCO2 65.7 H POC ABG pO2 ABG pO2 ABG HCO3 ABG O2 Saturation ABG Base Excess ABG Hemoglobin 11.9 L ABG Oxyhemoglobin ABG Sodium ABG Potassium ABG Chloride 93.0 L ABG Glucose 244 H Oxyhemoglobin Carboxyhemoglobin Sodium Potassium Chloride Carbon Dioxide BUN Creatinine Glucose POC Glucose 221 H 248 H Lactic Acid Calcium Magnesium Ferritin Total Bilirubin Direct Bilirubin AST ALT Alkaline Phosphatase Lactate Dehydrogenase C-Reactive Protein Total Protein Albumin Triglycerides Lipase Arterial Blood Glucose 244 H Arterial Blood Ionized Calcium Urine WBC (Auto) Coronavirus (PCR) SARS-CoV-2 IgG Ab Crossmatch 06/17/20 06/17/20 06/17/20 17:47 23:11 23:29 WBC RBC Hgb Hct MCV MCH MCHC RDW Lymph % (Auto) Lymph # (Auto) [place] # (Auto) Baso # (Auto) Seg Neutrophils % Seg Neuts % (Manual) Lymphocytes % (Manual) Nucleated RBC % Seg Neutrophils # Seg Neutrophils # Man Lymphocytes # (Manual) Monocytes # (Manual) Eosinophils # (Manual) PT INR APTT D-Dimer Heparin Anti-Xa Level ABG pH POC ABG pCO2 85.2 H POC ABG pO2 48.4 L ABG pO2 ABG HCO3 ABG O2 Saturation ABG Base Excess ABG Hemoglobin 8.0 L ABG Oxyhemoglobin ABG Sodium ABG Potassium ABG Chloride 95.0 L ABG Glucose 292 H Oxyhemoglobin Carboxyhemoglobin Sodium Potassium Chloride Carbon Dioxide BUN Creatinine Glucose POC Glucose 245 H 252 H Lactic Acid Calcium Magnesium Ferritin Total Bilirubin Direct Bilirubin AST ALT Alkaline Phosphatase Lactate Dehydrogenase C-Reactive Protein Total Protein Albumin Triglycerides Lipase Arterial Blood Glucose 292 H Arterial Blood Ionized Calcium Urine WBC (Auto) Coronavirus (PCR) SARS-CoV-2 IgG Ab Crossmatch 06/18/20 06/18/20 06/18/20 03:14 05:34 11:47 WBC RBC Hgb Hct MCV MCH MCHC RDW Lymph % (Auto) Lymph # (Auto) [place] # (Auto) Baso # (Auto) Seg Neutrophils % Seg Neuts % (Manual) Lymphocytes % (Manual) Nucleated RBC % Seg Neutrophils # Seg Neutrophils # Man Lymphocytes # (Manual) Monocytes # (Manual) Eosinophils # (Manual) PT INR APTT D-Dimer Heparin Anti-Xa Level ABG pH POC ABG pCO2 65.4 H POC ABG pO2 160.7 H ABG pO2 ABG HCO3 ABG O2 Saturation ABG Base Excess ABG Hemoglobin 7.8 L ABG Oxyhemoglobin ABG Sodium ABG Potassium ABG Chloride 95.0 L ABG Glucose 251 H Oxyhemoglobin Carboxyhemoglobin Sodium Potassium Chloride Carbon Dioxide BUN Creatinine Glucose POC Glucose 243 H 263 H Lactic Acid Calcium Magnesium Ferritin Total Bilirubin Direct Bilirubin AST ALT Alkaline Phosphatase Lactate Dehydrogenase C-Reactive Protein Total Protein Albumin Triglycerides Lipase Arterial Blood Glucose 251 H Arterial Blood Ionized Calcium Urine WBC (Auto) Coronavirus (PCR) SARS-CoV-2 IgG Ab Crossmatch 06/18/20 06/18/20 06/19/20 17:31 23:33 04:32 WBC RBC Hgb Hct MCV MCH MCHC RDW Lymph % (Auto) Lymph # (Auto) [place] # (Auto) Baso # (Auto) Seg Neutrophils % Seg Neuts % (Manual) Lymphocytes % (Manual) Nucleated RBC % Seg Neutrophils # Seg Neutrophils # Man Lymphocytes # (Manual) Monocytes # (Manual) Eosinophils # (Manual) PT INR APTT D-Dimer Heparin Anti-Xa Level ABG pH POC ABG pCO2 83.1 H POC ABG pO2 65.8 L ABG pO2 ABG HCO3 ABG O2 Saturation ABG Base Excess ABG Hemoglobin 8.9 L ABG Oxyhemoglobin ABG Sodium ABG Potassium ABG Chloride 96.0 L ABG Glucose 297 H Oxyhemoglobin Carboxyhemoglobin Sodium Potassium Chloride Carbon Dioxide BUN Creatinine Glucose POC Glucose 286 H 238 H Lactic Acid Calcium Magnesium Ferritin Total Bilirubin Direct Bilirubin AST ALT Alkaline Phosphatase Lactate Dehydrogenase C-Reactive Protein Total Protein Albumin Triglycerides Lipase Arterial Blood Glucose 297 H Arterial Blood Ionized Calcium Urine WBC (Auto) Coronavirus (PCR) SARS-CoV-2 IgG Ab Crossmatch 06/19/20 06/19/20 06/19/20 05:55 11:20 17:12 WBC RBC Hgb Hct MCV MCH MCHC RDW Lymph % (Auto) Lymph # (Auto) [place] # (Auto) Baso # (Auto) Seg Neutrophils % Seg Neuts % (Manual) Lymphocytes % (Manual) Nucleated RBC % Seg Neutrophils # Seg Neutrophils # Man Lymphocytes # (Manual) Monocytes # (Manual) Eosinophils # (Manual) PT INR APTT D-Dimer Heparin Anti-Xa Level ABG pH POC ABG pCO2 POC ABG pO2 ABG pO2 ABG HCO3 ABG O2 Saturation ABG Base Excess ABG Hemoglobin ABG Oxyhemoglobin ABG Sodium ABG Potassium ABG Chloride ABG Glucose Oxyhemoglobin Carboxyhemoglobin Sodium Potassium Chloride Carbon Dioxide BUN Creatinine Glucose POC Glucose 274 H 282 H 298 H Lactic Acid Calcium Magnesium Ferritin Total Bilirubin Direct Bilirubin AST ALT Alkaline Phosphatase Lactate Dehydrogenase C-Reactive Protein Total Protein Albumin Triglycerides Lipase Arterial Blood Glucose Arterial Blood Ionized Calcium Urine WBC (Auto) Coronavirus (PCR) SARS-CoV-2 IgG Ab Crossmatch 06/19/20 06/20/20 06/20/20 23:08 03:33 06:01 WBC RBC Hgb Hct MCV MCH MCHC RDW Lymph % (Auto) Lymph # (Auto) [place] # (Auto) Baso # (Auto) Seg Neutrophils % Seg Neuts % (Manual) Lymphocytes % (Manual) Nucleated RBC % Seg Neutrophils # Seg Neutrophils # Man Lymphocytes # (Manual) Monocytes # (Manual) Eosinophils # (Manual) PT INR APTT D-Dimer Heparin Anti-Xa Level ABG pH POC ABG pCO2 POC ABG pO2 ABG pO2 69.9 L ABG HCO3 50.8 H ABG O2 Saturation ABG Base Excess 24.2 H ABG Hemoglobin 5.8 L ABG Oxyhemoglobin ABG Sodium ABG Potassium ABG Chloride ABG Glucose Oxyhemoglobin Carboxyhemoglobin Sodium Potassium Chloride Carbon Dioxide BUN Creatinine Glucose POC Glucose 293 H 182 H Lactic Acid Calcium Magnesium Ferritin Total Bilirubin Direct Bilirubin AST ALT Alkaline Phosphatase Lactate Dehydrogenase C-Reactive Protein Total Protein Albumin Triglycerides Lipase Arterial Blood Glucose Arterial Blood Ionized Calcium Urine WBC (Auto) Coronavirus (PCR) SARS-CoV-2 IgG Ab Crossmatch 06/20/20 06/20/20 06/20/20 11:47 17:46 23:37 WBC RBC Hgb Hct MCV MCH MCHC RDW Lymph % (Auto) Lymph # (Auto) [place] # (Auto) Baso # (Auto) Seg Neutrophils % Seg Neuts % (Manual) Lymphocytes % (Manual) Nucleated RBC % Seg Neutrophils # Seg Neutrophils # Man Lymphocytes # (Manual) Monocytes # (Manual) Eosinophils # (Manual) PT INR APTT D-Dimer Heparin Anti-Xa Level ABG pH POC ABG pCO2 POC ABG pO2 ABG pO2 ABG HCO3 ABG O2 Saturation ABG Base Excess ABG Hemoglobin ABG Oxyhemoglobin ABG Sodium ABG Potassium ABG Chloride ABG Glucose Oxyhemoglobin Carboxyhemoglobin Sodium Potassium Chloride Carbon Dioxide BUN Creatinine Glucose POC Glucose 170 H 215 H 256 H Lactic Acid Calcium Magnesium Ferritin Total Bilirubin Direct Bilirubin AST ALT Alkaline Phosphatase Lactate Dehydrogenase C-Reactive Protein Total Protein Albumin Triglycerides Lipase Arterial Blood Glucose Arterial Blood Ionized Calcium Urine WBC (Auto) Coronavirus (PCR) SARS-CoV-2 IgG Ab Crossmatch 06/21/20 06/21/20 06/21/20 04:00 05:14 05:51 WBC RBC Hgb Hct MCV MCH MCHC RDW Lymph % (Auto) Lymph # (Auto) [place] # (Auto) Baso # (Auto) Seg Neutrophils % Seg Neuts % (Manual) Lymphocytes % (Manual) Nucleated RBC % Seg Neutrophils # Seg Neutrophils # Man Lymphocytes # (Manual) Monocytes # (Manual) Eosinophils # (Manual) PT INR APTT D-Dimer Heparin Anti-Xa Level ABG pH 7.474 H POC ABG pCO2 POC ABG pO2 ABG pO2 ABG HCO3 52.1 H ABG O2 Saturation ABG Base Excess 23.3 H ABG Hemoglobin 5.3 L ABG Oxyhemoglobin ABG Sodium ABG Potassium ABG Chloride ABG Glucose Oxyhemoglobin 93.8 L Carboxyhemoglobin Sodium Potassium Chloride Carbon Dioxide BUN Creatinine Glucose POC Glucose 122 H 129 H Lactic Acid Calcium Magnesium Ferritin Total Bilirubin Direct Bilirubin AST ALT Alkaline Phosphatase Lactate Dehydrogenase C-Reactive Protein Total Protein Albumin Triglycerides Lipase Arterial Blood Glucose Arterial Blood Ionized Calcium Urine WBC (Auto) Coronavirus (PCR) SARS-CoV-2 IgG Ab Crossmatch 06/21/20 06/21/20 06/21/20 11:00 11:00 11:42 WBC 14.2 H RBC 1.85 L Hgb 6.2 L Hct 19.5 L* MCV 105 H MCH 34 H MCHC RDW 18.0 H Lymph % (Auto) Lymph # (Auto) [place] # (Auto) Baso # (Auto) Seg Neutrophils % Seg Neuts % (Manual) Lymphocytes % (Manual) Nucleated RBC % Seg Neutrophils # Seg Neutrophils # Man Lymphocytes # (Manual) Monocytes # (Manual) Eosinophils # (Manual) PT INR APTT D-Dimer Heparin Anti-Xa Level ABG pH POC ABG pCO2 POC ABG pO2 ABG pO2 ABG HCO3 ABG O2 Saturation ABG Base Excess ABG Hemoglobin ABG Oxyhemoglobin ABG Sodium ABG Potassium ABG Chloride ABG Glucose Oxyhemoglobin Carboxyhemoglobin Sodium 147 H Potassium Chloride Carbon Dioxide 51 H* BUN 31 H Creatinine 0.5 L Glucose 224 H POC Glucose 217 H Lactic Acid Calcium Magnesium Ferritin Total Bilirubin Direct Bilirubin AST ALT Alkaline Phosphatase Lactate Dehydrogenase C-Reactive Protein Total Protein Albumin Triglycerides Lipase Arterial Blood Glucose Arterial Blood Ionized Calcium Urine WBC (Auto) Coronavirus (PCR) SARS-CoV-2 IgG Ab Crossmatch 06/21/20 06/21/20 06/21/20 14:18 14:30 18:36 WBC RBC Hgb Hct MCV MCH MCHC RDW Lymph % (Auto) Lymph # (Auto) [place] # (Auto) Baso # (Auto) Seg Neutrophils % Seg Neuts % (Manual) Lymphocytes % (Manual) Nucleated RBC % Seg Neutrophils # Seg Neutrophils # Man Lymphocytes # (Manual) Monocytes # (Manual) Eosinophils # (Manual) PT 15.1 H INR 1.19 H APTT D-Dimer Heparin Anti-Xa Level ABG pH POC ABG pCO2 POC ABG pO2 ABG pO2 ABG HCO3 ABG O2 Saturation ABG Base Excess ABG Hemoglobin ABG Oxyhemoglobin ABG Sodium ABG Potassium ABG Chloride ABG Glucose Oxyhemoglobin Carboxyhemoglobin Sodium Potassium Chloride Carbon Dioxide BUN Creatinine Glucose POC Glucose 185 H Lactic Acid Calcium Magnesium Ferritin Total Bilirubin Direct Bilirubin AST ALT Alkaline Phosphatase Lactate Dehydrogenase C-Reactive Protein Total Protein Albumin Triglycerides Lipase Arterial Blood Glucose Arterial Blood Ionized Calcium Urine WBC (Auto) Coronavirus (PCR) SARS-CoV-2 IgG Ab Crossmatch See Detail 06/21/20 06/22/20 06/22/20 21:14 03:50 04:00 WBC RBC Hgb Hct MCV MCH MCHC RDW Lymph % (Auto) Lymph # (Auto) [place] # (Auto) Baso # (Auto) Seg Neutrophils % Seg Neuts % (Manual) Lymphocytes % (Manual) Nucleated RBC % Seg Neutrophils # Seg Neutrophils # Man Lymphocytes # (Manual) Monocytes # (Manual) Eosinophils # (Manual) PT INR APTT D-Dimer Heparin Anti-Xa Level ABG pH 7.451 H POC ABG pCO2 POC ABG pO2 ABG pO2 ABG HCO3 47.5 H ABG O2 Saturation ABG Base Excess 22.0 H ABG Hemoglobin < 5.1 L ABG Oxyhemoglobin ABG Sodium ABG Potassium ABG Chloride ABG Glucose Oxyhemoglobin 94.1 L Carboxyhemoglobin Sodium 149 H Potassium 3.5 L Chloride Carbon Dioxide 42 H* D BUN 34 H Creatinine 0.4 L Glucose 219 H POC Glucose 250 H Lactic Acid Calcium Magnesium Ferritin Total Bilirubin Direct Bilirubin AST ALT Alkaline Phosphatase Lactate Dehydrogenase C-Reactive Protein Total Protein Albumin Triglycerides Lipase Arterial Blood Glucose Arterial Blood Ionized Calcium Urine WBC (Auto) Coronavirus (PCR) SARS-CoV-2 IgG Ab Crossmatch 06/22/20 06/22/20 06/22/20 12:16 14:29 17:56 WBC RBC Hgb Hct MCV MCH MCHC RDW Lymph % (Auto) Lymph # (Auto) [place] # (Auto) Baso # (Auto) Seg Neutrophils % Seg Neuts % (Manual) Lymphocytes % (Manual) Nucleated RBC % Seg Neutrophils # Seg Neutrophils # Man Lymphocytes # (Manual) Monocytes # (Manual) Eosinophils # (Manual) PT 11.8 L INR APTT 23.5 L D-Dimer Heparin Anti-Xa Level ABG pH POC ABG pCO2 POC ABG pO2 ABG pO2 ABG HCO3 ABG O2 Saturation ABG Base Excess ABG Hemoglobin ABG Oxyhemoglobin ABG Sodium ABG Potassium ABG Chloride ABG Glucose Oxyhemoglobin Carboxyhemoglobin Sodium Potassium Chloride Carbon Dioxide BUN Creatinine Glucose POC Glucose 215 H 215 H Lactic Acid Calcium Magnesium Ferritin Total Bilirubin Direct Bilirubin AST ALT Alkaline Phosphatase Lactate Dehydrogenase C-Reactive Protein Total Protein Albumin Triglycerides Lipase Arterial Blood Glucose Arterial Blood Ionized Calcium Urine WBC (Auto) Coronavirus (PCR) SARS-CoV-2 IgG Ab Crossmatch 06/22/20 06/22/20 06/22/20 23:36 23:45 Unknown WBC 14.1 H RBC 2.70 L Hgb 8.9 L 8.9 L Hct 26.9 L 27.2 L D MCV 101 H MCH 33 H MCHC RDW 17.7 H Lymph % (Auto) Lymph # (Auto) [place] # (Auto) Baso # (Auto) Seg Neutrophils % Seg Neuts % (Manual) 92.0 H Lymphocytes % (Manual) 5.0 L Nucleated RBC % Seg Neutrophils # Seg Neutrophils # Man 13.0 H Lymphocytes # (Manual) 0.7 L Monocytes # (Manual) Eosinophils # (Manual) PT INR APTT D-Dimer Heparin Anti-Xa Level ABG pH POC ABG pCO2 POC ABG pO2 ABG pO2 ABG HCO3 ABG O2 Saturation ABG Base Excess ABG Hemoglobin ABG Oxyhemoglobin ABG Sodium ABG Potassium ABG Chloride ABG Glucose Oxyhemoglobin Carboxyhemoglobin Sodium Potassium Chloride Carbon Dioxide BUN Creatinine Glucose POC Glucose 208 H Lactic Acid Calcium Magnesium Ferritin Total Bilirubin Direct Bilirubin AST ALT Alkaline Phosphatase Lactate Dehydrogenase C-Reactive Protein Total Protein Albumin Triglycerides Lipase Arterial Blood Glucose Arterial Blood Ionized Calcium Urine WBC (Auto) Coronavirus (PCR) SARS-CoV-2 IgG Ab Crossmatch 06/23/20 06/23/20 06/23/20 05:17 05:19 06:50 WBC RBC Hgb Hct MCV MCH MCHC RDW Lymph % (Auto) Lymph # (Auto) [place] # (Auto) Baso # (Auto) Seg Neutrophils % Seg Neuts % (Manual) Lymphocytes % (Manual) Nucleated RBC % Seg Neutrophils # Seg Neutrophils # Man Lymphocytes # (Manual) Monocytes # (Manual) Eosinophils # (Manual) PT INR APTT D-Dimer Heparin Anti-Xa Level ABG pH POC ABG pCO2 69.7 H POC ABG pO2 63.3 L ABG pO2 ABG HCO3 ABG O2 Saturation ABG Base Excess ABG Hemoglobin 10.1 L ABG Oxyhemoglobin ABG Sodium ABG Potassium 3.3 L ABG Chloride ABG Glucose 226 H Oxyhemoglobin Carboxyhemoglobin Sodium Potassium 3.0 L Chloride Carbon Dioxide 41 H* BUN 26 H Creatinine 0.4 L Glucose 209 H POC Glucose 200 H Lactic Acid Calcium Magnesium Ferritin Total Bilirubin Direct Bilirubin AST ALT Alkaline Phosphatase Lactate Dehydrogenase C-Reactive Protein Total Protein Albumin 2.9 L Triglycerides Lipase Arterial Blood Glucose 226 H Arterial Blood Ionized Calcium Urine WBC (Auto) Coronavirus (PCR) SARS-CoV-2 IgG Ab Crossmatch 06/23/20 06/23/20 06/23/20 09:41 12:04 18:16 WBC RBC Hgb 9.1 L Hct 28.0 L MCV MCH MCHC RDW Lymph % (Auto) Lymph # (Auto) [place] # (Auto) Baso # (Auto) Seg Neutrophils % Seg Neuts % (Manual) Lymphocytes % (Manual) Nucleated RBC % Seg Neutrophils # Seg Neutrophils # Man Lymphocytes # (Manual) Monocytes # (Manual) Eosinophils # (Manual) PT INR APTT D-Dimer Heparin Anti-Xa Level ABG pH POC ABG pCO2 POC ABG pO2 ABG pO2 ABG HCO3 ABG O2 Saturation ABG Base Excess ABG Hemoglobin ABG Oxyhemoglobin ABG Sodium ABG Potassium ABG Chloride ABG Glucose Oxyhemoglobin Carboxyhemoglobin Sodium Potassium Chloride Carbon Dioxide BUN Creatinine Glucose POC Glucose 146 H 162 H Lactic Acid Calcium Magnesium Ferritin Total Bilirubin Direct Bilirubin AST ALT Alkaline Phosphatase Lactate Dehydrogenase C-Reactive Protein Total Protein Albumin Triglycerides Lipase Arterial Blood Glucose Arterial Blood Ionized Calcium Urine WBC (Auto) Coronavirus (PCR) SARS-CoV-2 IgG Ab Crossmatch 06/23/20 06/23/20 06/24/20 23:24 23:41 02:39 WBC RBC Hgb 8.2 L 8.8 L Hct 24.9 L 26.8 L MCV MCH MCHC RDW Lymph % (Auto) Lymph # (Auto) [place] # (Auto) Baso # (Auto) Seg Neutrophils % Seg Neuts % (Manual) Lymphocytes % (Manual) Nucleated RBC % Seg Neutrophils # Seg Neutrophils # Man Lymphocytes # (Manual) Monocytes # (Manual) Eosinophils # (Manual) PT INR APTT D-Dimer Heparin Anti-Xa Level ABG pH POC ABG pCO2 POC ABG pO2 ABG pO2 ABG HCO3 ABG O2 Saturation ABG Base Excess ABG Hemoglobin ABG Oxyhemoglobin ABG Sodium ABG Potassium ABG Chloride ABG Glucose Oxyhemoglobin Carboxyhemoglobin Sodium Potassium Chloride Carbon Dioxide BUN Creatinine Glucose POC Glucose 248 H Lactic Acid Calcium Magnesium Ferritin Total Bilirubin Direct Bilirubin AST ALT Alkaline Phosphatase Lactate Dehydrogenase C-Reactive Protein Total Protein Albumin Triglycerides Lipase Arterial Blood Glucose Arterial Blood Ionized Calcium Urine WBC (Auto) Coronavirus (PCR) SARS-CoV-2 IgG Ab Crossmatch 06/24/20 06/24/20 06/24/20 02:39 02:45 05:31 WBC RBC Hgb Hct MCV MCH MCHC RDW Lymph % (Auto) Lymph # (Auto) [place] # (Auto) Baso # (Auto) Seg Neutrophils % Seg Neuts % (Manual) Lymphocytes % (Manual) Nucleated RBC % Seg Neutrophils # Seg Neutrophils # Man Lymphocytes # (Manual) Monocytes # (Manual) Eosinophils # (Manual) PT INR APTT D-Dimer Heparin Anti-Xa Level ABG pH POC ABG pCO2 66.9 H POC ABG pO2 109.7 H ABG pO2 ABG HCO3 ABG O2 Saturation ABG Base Excess ABG Hemoglobin 9.7 L ABG Oxyhemoglobin ABG Sodium 135.0 L ABG Potassium ABG Chloride 97.0 L ABG Glucose 277 H Oxyhemoglobin Carboxyhemoglobin Sodium 136 L Potassium Chloride 95.0 L Carbon Dioxide 34 H D BUN 24 H Creatinine 0.3 L Glucose 260 H POC Glucose 164 H Lactic Acid Calcium Magnesium Ferritin Total Bilirubin Direct Bilirubin AST ALT Alkaline Phosphatase Lactate Dehydrogenase C-Reactive Protein Total Protein 5.2 L Albumin 2.6 L Triglycerides Lipase Arterial Blood Glucose 277 H Arterial Blood Ionized Calcium Urine WBC (Auto) Coronavirus (PCR) SARS-CoV-2 IgG Ab Crossmatch 06/24/20 06/24/20 06/24/20 10:00 11:49 17:39 WBC RBC Hgb 8.9 L Hct 26.5 L MCV MCH MCHC RDW Lymph % (Auto) Lymph # (Auto) [place] # (Auto) Baso # (Auto) Seg Neutrophils % Seg Neuts % (Manual) Lymphocytes % (Manual) Nucleated RBC % Seg Neutrophils # Seg Neutrophils # Man Lymphocytes # (Manual) Monocytes # (Manual) Eosinophils # (Manual) PT INR APTT D-Dimer Heparin Anti-Xa Level ABG pH POC ABG pCO2 POC ABG pO2 ABG pO2 ABG HCO3 ABG O2 Saturation ABG Base Excess ABG Hemoglobin ABG Oxyhemoglobin ABG Sodium ABG Potassium ABG Chloride ABG Glucose Oxyhemoglobin Carboxyhemoglobin Sodium Potassium Chloride Carbon Dioxide BUN Creatinine Glucose POC Glucose 198 H 223 H Lactic Acid Calcium Magnesium Ferritin Total Bilirubin Direct Bilirubin AST ALT Alkaline Phosphatase Lactate Dehydrogenase C-Reactive Protein Total Protein Albumin Triglycerides Lipase Arterial Blood Glucose Arterial Blood Ionized Calcium Urine WBC (Auto) Coronavirus (PCR) SARS-CoV-2 IgG Ab Crossmatch 06/24/20 06/25/20 06/25/20 23:56 02:16 04:08 WBC RBC Hgb Hct MCV MCH MCHC RDW Lymph % (Auto) Lymph # (Auto) [place] # (Auto) Baso # (Auto) Seg Neutrophils % Seg Neuts % (Manual) Lymphocytes % (Manual) Nucleated RBC % Seg Neutrophils # Seg Neutrophils # Man Lymphocytes # (Manual) Monocytes # (Manual) Eosinophils # (Manual) PT INR APTT D-Dimer Heparin Anti-Xa Level ABG pH 7.454 H POC ABG pCO2 56.9 H POC ABG pO2 61.0 L ABG pO2 ABG HCO3 ABG O2 Saturation ABG Base Excess ABG Hemoglobin ABG Oxyhemoglobin ABG Sodium 134.3 L ABG Potassium ABG Chloride 92.0 L ABG Glucose 246 H Oxyhemoglobin Carboxyhemoglobin Sodium 134 L Potassium Chloride 89.7 L Carbon Dioxide 36 H BUN Creatinine 0.3 L Glucose 254 H POC Glucose 225 H Lactic Acid Calcium Magnesium Ferritin Total Bilirubin Direct Bilirubin AST ALT Alkaline Phosphatase Lactate Dehydrogenase C-Reactive Protein Total Protein Albumin 2.9 L Triglycerides Lipase Arterial Blood Glucose 246 H Arterial Blood Ionized Calcium Urine WBC (Auto) Coronavirus (PCR) SARS-CoV-2 IgG Ab Crossmatch 06/25/20 06/25/20 06/25/20 05:44 11:35 17:33 WBC RBC Hgb Hct MCV MCH MCHC RDW Lymph % (Auto) Lymph # (Auto) [place] # (Auto) Baso # (Auto) Seg Neutrophils % Seg Neuts % (Manual) Lymphocytes % (Manual) Nucleated RBC % Seg Neutrophils # Seg Neutrophils # Man Lymphocytes # (Manual) Monocytes # (Manual) Eosinophils # (Manual) PT INR APTT D-Dimer Heparin Anti-Xa Level ABG pH POC ABG pCO2 POC ABG pO2 ABG pO2 ABG HCO3 ABG O2 Saturation ABG Base Excess ABG Hemoglobin ABG Oxyhemoglobin ABG Sodium ABG Potassium ABG Chloride ABG Glucose Oxyhemoglobin Carboxyhemoglobin Sodium Potassium Chloride Carbon Dioxide BUN Creatinine Glucose POC Glucose 170 H 175 H 229 H Lactic Acid Calcium Magnesium Ferritin Total Bilirubin Direct Bilirubin AST ALT Alkaline Phosphatase Lactate Dehydrogenase C-Reactive Protein Total Protein Albumin Triglycerides Lipase Arterial Blood Glucose Arterial Blood Ionized Calcium Urine WBC (Auto) Coronavirus (PCR) SARS-CoV-2 IgG Ab Crossmatch 06/25/20 06/26/20 06/26/20 23:55 02:17 02:17 WBC RBC Hgb 10.0 L Hct 30.4 L MCV MCH MCHC RDW Lymph % (Auto) Lymph # (Auto) [place] # (Auto) Baso # (Auto) Seg Neutrophils % Seg Neuts % (Manual) Lymphocytes % (Manual) Nucleated RBC % Seg Neutrophils # Seg Neutrophils # Man Lymphocytes # (Manual) Monocytes # (Manual) Eosinophils # (Manual) PT INR APTT D-Dimer Heparin Anti-Xa Level ABG pH POC ABG pCO2 POC ABG pO2 ABG pO2 ABG HCO3 ABG O2 Saturation ABG Base Excess ABG Hemoglobin ABG Oxyhemoglobin ABG Sodium ABG Potassium ABG Chloride ABG Glucose Oxyhemoglobin Carboxyhemoglobin Sodium 136 L Potassium Chloride 90.1 L Carbon Dioxide 39 H BUN Creatinine 0.2 L Glucose 232 H POC Glucose 192 H Lactic Acid Calcium Magnesium Ferritin Total Bilirubin Direct Bilirubin AST ALT Alkaline Phosphatase Lactate Dehydrogenase C-Reactive Protein Total Protein 6.1 L Albumin 2.9 L Triglycerides Lipase Arterial Blood Glucose Arterial Blood Ionized Calcium Urine WBC (Auto) Coronavirus (PCR) SARS-CoV-2 IgG Ab Crossmatch 06/26/20 06/26/20 06/26/20 04:15 04:49 05:28 WBC RBC Hgb Hct MCV MCH MCHC RDW Lymph % (Auto) Lymph # (Auto) [place] # (Auto) Baso # (Auto) Seg Neutrophils % Seg Neuts % (Manual) Lymphocytes % (Manual) Nucleated RBC % Seg Neutrophils # Seg Neutrophils # Man Lymphocytes # (Manual) Monocytes # (Manual) Eosinophils # (Manual) PT INR APTT D-Dimer Heparin Anti-Xa Level ABG pH 7.453 H POC ABG pCO2 59.6 H POC ABG pO2 ABG pO2 ABG HCO3 ABG O2 Saturation ABG Base Excess ABG Hemoglobin 10.0 L ABG Oxyhemoglobin ABG Sodium 134.2 L ABG Potassium 3.3 L ABG Chloride 92.0 L ABG Glucose 305 H Oxyhemoglobin Carboxyhemoglobin Sodium Potassium Chloride Carbon Dioxide BUN Creatinine Glucose POC Glucose 234 H Lactic Acid Calcium Magnesium Ferritin Total Bilirubin Direct Bilirubin AST ALT Alkaline Phosphatase Lactate Dehydrogenase C-Reactive Protein Total Protein Albumin Triglycerides 203 H Lipase Arterial Blood Glucose 305 H Arterial Blood Ionized Calcium Urine WBC (Auto) Coronavirus (PCR) SARS-CoV-2 IgG Ab Crossmatch 06/26/20 06/26/20 06/26/20 11:58 17:58 21:32 WBC RBC Hgb Hct MCV MCH MCHC RDW Lymph % (Auto) Lymph # (Auto) [place] # (Auto) Baso # (Auto) Seg Neutrophils % Seg Neuts % (Manual) Lymphocytes % (Manual) Nucleated RBC % Seg Neutrophils # Seg Neutrophils # Man Lymphocytes # (Manual) Monocytes # (Manual) Eosinophils # (Manual) PT INR APTT D-Dimer Heparin Anti-Xa Level ABG pH POC ABG pCO2 POC ABG pO2 ABG pO2 ABG HCO3 ABG O2 Saturation ABG Base Excess ABG Hemoglobin ABG Oxyhemoglobin ABG Sodium ABG Potassium ABG Chloride ABG Glucose Oxyhemoglobin Carboxyhemoglobin Sodium Potassium Chloride Carbon Dioxide BUN Creatinine Glucose POC Glucose 198 H 193 H 191 H Lactic Acid Calcium Magnesium Ferritin Total Bilirubin Direct Bilirubin AST ALT Alkaline Phosphatase Lactate Dehydrogenase C-Reactive Protein Total Protein Albumin Triglycerides Lipase Arterial Blood Glucose Arterial Blood Ionized Calcium Urine WBC (Auto) Coronavirus (PCR) SARS-CoV-2 IgG Ab Crossmatch 06/26/20 06/27/20 06/27/20 23:40 04:35 05:32 WBC RBC Hgb Hct MCV MCH MCHC RDW Lymph % (Auto) Lymph # (Auto) [place] # (Auto) Baso # (Auto) Seg Neutrophils % Seg Neuts % (Manual) Lymphocytes % (Manual) Nucleated RBC % Seg Neutrophils # Seg Neutrophils # Man Lymphocytes # (Manual) Monocytes # (Manual) Eosinophils # (Manual) PT INR APTT D-Dimer Heparin Anti-Xa Level ABG pH 7.464 H POC ABG pCO2 60.8 H POC ABG pO2 ABG pO2 ABG HCO3 ABG O2 Saturation ABG Base Excess ABG Hemoglobin 10.1 L ABG Oxyhemoglobin ABG Sodium ABG Potassium 2.9 L ABG Chloride 92.0 L ABG Glucose 298 H Oxyhemoglobin Carboxyhemoglobin Sodium Potassium Chloride Carbon Dioxide BUN Creatinine Glucose POC Glucose 241 H 211 H Lactic Acid Calcium Magnesium Ferritin Total Bilirubin Direct Bilirubin AST ALT Alkaline Phosphatase Lactate Dehydrogenase C-Reactive Protein Total Protein Albumin Triglycerides Lipase Arterial Blood Glucose 298 H Arterial Blood Ionized Calcium Urine WBC (Auto) Coronavirus (PCR) SARS-CoV-2 IgG Ab Crossmatch 06/27/20 06/27/20 06/27/20 12:37 18:08 20:52 WBC RBC Hgb Hct MCV MCH MCHC RDW Lymph % (Auto) Lymph # (Auto) [place] # (Auto) Baso # (Auto) Seg Neutrophils % Seg Neuts % (Manual) Lymphocytes % (Manual) Nucleated RBC % Seg Neutrophils # Seg Neutrophils # Man Lymphocytes # (Manual) Monocytes # (Manual) Eosinophils # (Manual) PT INR APTT D-Dimer Heparin Anti-Xa Level ABG pH POC ABG pCO2 POC ABG pO2 ABG pO2 ABG HCO3 ABG O2 Saturation ABG Base Excess ABG Hemoglobin ABG Oxyhemoglobin ABG Sodium ABG Potassium ABG Chloride ABG Glucose Oxyhemoglobin Carboxyhemoglobin Sodium Potassium Chloride Carbon Dioxide BUN Creatinine Glucose POC Glucose 182 H 197 H 195 H Lactic Acid Calcium Magnesium Ferritin Total Bilirubin Direct Bilirubin AST ALT Alkaline Phosphatase Lactate Dehydrogenase C-Reactive Protein Total Protein Albumin Triglycerides Lipase Arterial Blood Glucose Arterial Blood Ionized Calcium Urine WBC (Auto) Coronavirus (PCR) SARS-CoV-2 IgG Ab Crossmatch 06/27/20 06/28/20 06/28/20 Unknown 04:17 04:50 WBC RBC Hgb Hct MCV MCH MCHC RDW Lymph % (Auto) Lymph # (Auto) [place] # (Auto) Baso # (Auto) Seg Neutrophils % Seg Neuts % (Manual) Lymphocytes % (Manual) Nucleated RBC % Seg Neutrophils # Seg Neutrophils # Man Lymphocytes # (Manual) Monocytes # (Manual) Eosinophils # (Manual) PT INR APTT D-Dimer Heparin Anti-Xa Level ABG pH POC ABG pCO2 58.6 H POC ABG pO2 60.1 L ABG pO2 ABG HCO3 ABG O2 Saturation ABG Base Excess ABG Hemoglobin 10.0 L ABG Oxyhemoglobin ABG Sodium 125.3 L ABG Potassium ABG Chloride 93.0 L ABG Glucose 308 H Oxyhemoglobin Carboxyhemoglobin Sodium Potassium 2.9 L* Chloride 93.4 L Carbon Dioxide 42 H* BUN Creatinine 0.3 L Glucose 211 H POC Glucose 252 H Lactic Acid Calcium 8.1 L Magnesium Ferritin Total Bilirubin Direct Bilirubin AST ALT Alkaline Phosphatase Lactate Dehydrogenase C-Reactive Protein Total Protein 5.1 L Albumin 2.4 L Triglycerides Lipase Arterial Blood Glucose 308 H Arterial Blood Ionized Calcium Urine WBC (Auto) Coronavirus (PCR) SARS-CoV-2 IgG Ab Crossmatch 06/28/20 06/28/20 06/28/20 06:35 06:35 11:36 WBC 18.9 H RBC 2.85 L Hgb 9.5 L Hct 28.4 L MCV 100 H MCH 33 H MCHC RDW 17.3 H Lymph % (Auto) Lymph # (Auto) [place] # (Auto) Baso # (Auto) Seg Neutrophils % 88.6 H Seg Neuts % (Manual) 95.0 H Lymphocytes % (Manual) 1.0 L Nucleated RBC % Seg Neutrophils # 15.9 H Seg Neutrophils # Man 18.0 H Lymphocytes # (Manual) 0.2 L Monocytes # (Manual) Eosinophils # (Manual) PT INR APTT D-Dimer Heparin Anti-Xa Level ABG pH POC ABG pCO2 POC ABG pO2 ABG pO2 ABG HCO3 ABG O2 Saturation ABG Base Excess ABG Hemoglobin ABG Oxyhemoglobin ABG Sodium ABG Potassium ABG Chloride ABG Glucose Oxyhemoglobin Carboxyhemoglobin Sodium Potassium Chloride 94.2 L Carbon Dioxide 38 H BUN Creatinine 0.3 L Glucose 228 H POC Glucose 243 H Lactic Acid Calcium Magnesium Ferritin Total Bilirubin Direct Bilirubin AST ALT Alkaline Phosphatase Lactate Dehydrogenase C-Reactive Protein Total Protein 6.1 L Albumin 2.7 L Triglycerides Lipase Arterial Blood Glucose Arterial Blood Ionized Calcium Urine WBC (Auto) Coronavirus (PCR) SARS-CoV-2 IgG Ab Crossmatch 06/28/20 06/28/20 06/29/20 16:53 21:10 00:06 WBC RBC Hgb Hct MCV MCH MCHC RDW Lymph % (Auto) Lymph # (Auto) [place] # (Auto) Baso # (Auto) Seg Neutrophils % Seg Neuts % (Manual) Lymphocytes % (Manual) Nucleated RBC % Seg Neutrophils # Seg Neutrophils # Man Lymphocytes # (Manual) Monocytes # (Manual) Eosinophils # (Manual) PT INR APTT D-Dimer Heparin Anti-Xa Level ABG pH POC ABG pCO2 POC ABG pO2 ABG pO2 ABG HCO3 ABG O2 Saturation ABG Base Excess ABG Hemoglobin ABG Oxyhemoglobin ABG Sodium ABG Potassium ABG Chloride ABG Glucose Oxyhemoglobin Carboxyhemoglobin Sodium Potassium Chloride Carbon Dioxide BUN Creatinine Glucose POC Glucose 211 H 195 H 200 H Lactic Acid Calcium Magnesium Ferritin Total Bilirubin Direct Bilirubin AST ALT Alkaline Phosphatase Lactate Dehydrogenase C-Reactive Protein Total Protein Albumin Triglycerides Lipase Arterial Blood Glucose Arterial Blood Ionized Calcium Urine WBC (Auto) Coronavirus (PCR) SARS-CoV-2 IgG Ab Crossmatch 06/29/20 06/29/20 06/29/20 03:11 04:00 04:00 WBC 18.8 H RBC 2.82 L Hgb 10.1 L Hct 28.5 L MCV 101 H MCH 36 H MCHC 36 H RDW 17.5 H Lymph % (Auto) 10.7 L Lymph # (Auto) [place] # (Auto) 1.0 H Baso # (Auto) 0.3 H Seg Neutrophils % 82.2 H Seg Neuts % (Manual) Lymphocytes % (Manual) Nucleated RBC % Seg Neutrophils # 15.5 H Seg Neutrophils # Man Lymphocytes # (Manual) Monocytes # (Manual) Eosinophils # (Manual) PT INR APTT D-Dimer Heparin Anti-Xa Level ABG pH POC ABG pCO2 57.5 H POC ABG pO2 69.1 L ABG pO2 ABG HCO3 ABG O2 Saturation ABG Base Excess ABG Hemoglobin 10.2 L ABG Oxyhemoglobin 92.3 L ABG Sodium 130.7 L ABG Potassium 3.2 L ABG Chloride 93.0 L ABG Glucose 228 H Oxyhemoglobin Carboxyhemoglobin Sodium 134 L Potassium 3.3 L Chloride 89.5 L Carbon Dioxide 40 H BUN Creatinine 0.2 L Glucose 190 H POC Glucose Lactic Acid Calcium Magnesium Ferritin Total Bilirubin Direct Bilirubin AST < 5 L ALT < 5 L Alkaline Phosphatase Lactate Dehydrogenase C-Reactive Protein Total Protein 5.9 L Albumin 2.2 L Triglycerides Lipase Arterial Blood Glucose 228 H Arterial Blood Ionized Calcium Urine WBC (Auto) Coronavirus (PCR) SARS-CoV-2 IgG Ab Crossmatch 06/29/20 06/29/20 06/29/20 05:00 05:23 09:36 WBC RBC Hgb Hct MCV MCH MCHC RDW Lymph % (Auto) Lymph # (Auto) [place] # (Auto) Baso # (Auto) Seg Neutrophils % Seg Neuts % (Manual) Lymphocytes % (Manual) Nucleated RBC % Seg Neutrophils # Seg Neutrophils # Man Lymphocytes # (Manual) Monocytes # (Manual) Eosinophils # (Manual) PT INR APTT D-Dimer Heparin Anti-Xa Level ABG pH POC ABG pCO2 POC ABG pO2 ABG pO2 ABG HCO3 ABG O2 Saturation ABG Base Excess ABG Hemoglobin ABG Oxyhemoglobin ABG Sodium ABG Potassium ABG Chloride ABG Glucose Oxyhemoglobin Carboxyhemoglobin Sodium Potassium Chloride Carbon Dioxide BUN Creatinine Glucose POC Glucose 165 H Lactic Acid Calcium Magnesium Ferritin Total Bilirubin Direct Bilirubin AST ALT Alkaline Phosphatase Lactate Dehydrogenase C-Reactive Protein Total Protein Albumin Triglycerides 1544 H 1799 H Lipase Arterial Blood Glucose Arterial Blood Ionized Calcium Urine WBC (Auto) Coronavirus (PCR) SARS-CoV-2 IgG Ab Crossmatch 06/29/20 06/29/20 06/29/20 09:36 12:02 18:00 WBC RBC Hgb Hct MCV MCH MCHC RDW Lymph % (Auto) Lymph # (Auto) [place] # (Auto) Baso # (Auto) Seg Neutrophils % Seg Neuts % (Manual) Lymphocytes % (Manual) Nucleated RBC % Seg Neutrophils # Seg Neutrophils # Man Lymphocytes # (Manual) Monocytes # (Manual) Eosinophils # (Manual) PT INR APTT D-Dimer Heparin Anti-Xa Level ABG pH POC ABG pCO2 POC ABG pO2 ABG pO2 ABG HCO3 ABG O2 Saturation ABG Base Excess ABG Hemoglobin ABG Oxyhemoglobin ABG Sodium ABG Potassium ABG Chloride ABG Glucose Oxyhemoglobin Carboxyhemoglobin Sodium Potassium Chloride Carbon Dioxide BUN Creatinine Glucose POC Glucose 197 H 187 H Lactic Acid Calcium Magnesium Ferritin Total Bilirubin Direct Bilirubin AST ALT Alkaline Phosphatase Lactate Dehydrogenase C-Reactive Protein Total Protein Albumin Triglycerides Lipase 86 H Arterial Blood Glucose Arterial Blood Ionized Calcium Urine WBC (Auto) Coronavirus (PCR) SARS-CoV-2 IgG Ab Crossmatch 06/29/20 06/30/20 06/30/20 23:33 03:46 05:50 WBC RBC Hgb Hct MCV MCH MCHC RDW Lymph % (Auto) Lymph # (Auto) [place] # (Auto) Baso # (Auto) Seg Neutrophils % Seg Neuts % (Manual) Lymphocytes % (Manual) Nucleated RBC % Seg Neutrophils # Seg Neutrophils # Man Lymphocytes # (Manual) Monocytes # (Manual) Eosinophils # (Manual) PT INR APTT D-Dimer Heparin Anti-Xa Level ABG pH 7.466 H POC ABG pCO2 57.3 H POC ABG pO2 66.1 L ABG pO2 ABG HCO3 ABG O2 Saturation ABG Base Excess ABG Hemoglobin 10.2 L ABG Oxyhemoglobin 92.3 L ABG Sodium 134.4 L ABG Potassium 3.2 L ABG Chloride 94.0 L ABG Glucose 178 H Oxyhemoglobin Carboxyhemoglobin Sodium Potassium Chloride Carbon Dioxide BUN Creatinine Glucose POC Glucose 170 H 170 H Lactic Acid Calcium Magnesium Ferritin Total Bilirubin Direct Bilirubin AST ALT Alkaline Phosphatase Lactate Dehydrogenase C-Reactive Protein Total Protein Albumin Triglycerides Lipase Arterial Blood Glucose 178 H Arterial Blood Ionized Calcium Urine WBC (Auto) Coronavirus (PCR) SARS-CoV-2 IgG Ab Crossmatch 06/30/20 06/30/20 06/30/20 07:00 07:00 12:04 WBC 15.6 H RBC 2.91 L Hgb 9.8 L Hct 29.7 L MCV 102 H MCH 34 H MCHC RDW 17.8 H Lymph % (Auto) Lymph # (Auto) [place] # (Auto) Baso # (Auto) Seg Neutrophils % Seg Neuts % (Manual) Lymphocytes % (Manual) 5.0 L Nucleated RBC % Seg Neutrophils # Seg Neutrophils # Man 14.8 H Lymphocytes # (Manual) 0.8 L Monocytes # (Manual) Eosinophils # (Manual) PT INR APTT D-Dimer Heparin Anti-Xa Level ABG pH POC ABG pCO2 POC ABG pO2 ABG pO2 ABG HCO3 ABG O2 Saturation ABG Base Excess ABG Hemoglobin ABG Oxyhemoglobin ABG Sodium ABG Potassium ABG Chloride ABG Glucose Oxyhemoglobin Carboxyhemoglobin Sodium Potassium Chloride 93.3 L Carbon Dioxide 43 H* BUN Creatinine 0.3 L Glucose 260 H POC Glucose 245 H Lactic Acid Calcium Magnesium Ferritin Total Bilirubin Direct Bilirubin AST ALT Alkaline Phosphatase Lactate Dehydrogenase C-Reactive Protein Total Protein Albumin 2.8 L Triglycerides 452 H Lipase Arterial Blood Glucose Arterial Blood Ionized Calcium Urine WBC (Auto) Coronavirus (PCR) SARS-CoV-2 IgG Ab Crossmatch 06/30/20 07/01/20 07/01/20 17:32 00:02 05:02 WBC RBC Hgb Hct MCV MCH MCHC RDW Lymph % (Auto) Lymph # (Auto) [place] # (Auto) Baso # (Auto) Seg Neutrophils % Seg Neuts % (Manual) Lymphocytes % (Manual) Nucleated RBC % Seg Neutrophils # Seg Neutrophils # Man Lymphocytes # (Manual) Monocytes # (Manual) Eosinophils # (Manual) PT INR APTT D-Dimer Heparin Anti-Xa Level ABG pH POC ABG pCO2 58.1 H POC ABG pO2 ABG pO2 ABG HCO3 ABG O2 Saturation ABG Base Excess ABG Hemoglobin 11.2 L ABG Oxyhemoglobin ABG Sodium 132.7 L ABG Potassium ABG Chloride 92.0 L ABG Glucose 238 H Oxyhemoglobin Carboxyhemoglobin Sodium Potassium Chloride Carbon Dioxide BUN Creatinine Glucose POC Glucose 209 H 208 H Lactic Acid Calcium Magnesium Ferritin Total Bilirubin Direct Bilirubin AST ALT Alkaline Phosphatase Lactate Dehydrogenase C-Reactive Protein Total Protein Albumin Triglycerides Lipase Arterial Blood Glucose 238 H Arterial Blood Ionized Calcium Urine WBC (Auto) Coronavirus (PCR) SARS-CoV-2 IgG Ab Crossmatch 07/01/20 07/01/20 07/01/20 06:16 06:41 06:41 WBC 18.1 H RBC 2.33 L Hgb 7.1 L Hct 21.3 L D MCV MCH MCHC RDW Lymph % (Auto) Lymph # (Auto) [place] # (Auto) Baso # (Auto) Seg Neutrophils % Seg Neuts % (Manual) 82.0 H Lymphocytes % (Manual) 7.0 L Nucleated RBC % 1.0 H Seg Neutrophils # Seg Neutrophils # Man 14.8 H Lymphocytes # (Manual) Monocytes # (Manual) 1.1 H Eosinophils # (Manual) 0.5 H PT INR APTT D-Dimer Heparin Anti-Xa Level < 0.10 L ABG pH POC ABG pCO2 POC ABG pO2 ABG pO2 ABG HCO3 ABG O2 Saturation ABG Base Excess ABG Hemoglobin ABG Oxyhemoglobin ABG Sodium ABG Potassium ABG Chloride ABG Glucose Oxyhemoglobin Carboxyhemoglobin Sodium Potassium Chloride Carbon Dioxide BUN Creatinine Glucose POC Glucose 180 H Lactic Acid Calcium Magnesium Ferritin Total Bilirubin Direct Bilirubin AST ALT Alkaline Phosphatase Lactate Dehydrogenase C-Reactive Protein Total Protein Albumin Triglycerides Lipase Arterial Blood Glucose Arterial Blood Ionized Calcium Urine WBC (Auto) Coronavirus (PCR) SARS-CoV-2 IgG Ab Crossmatch 07/01/20 07/01/20 07/01/20 08:11 12:04 16:16 WBC RBC Hgb Hct MCV MCH MCHC RDW Lymph % (Auto) Lymph # (Auto) [place] # (Auto) Baso # (Auto) Seg Neutrophils % Seg Neuts % (Manual) Lymphocytes % (Manual) Nucleated RBC % Seg Neutrophils # Seg Neutrophils # Man Lymphocytes # (Manual) Monocytes # (Manual) Eosinophils # (Manual) PT INR APTT D-Dimer Heparin Anti-Xa Level 1.02 H ABG pH POC ABG pCO2 POC ABG pO2 ABG pO2 ABG HCO3 ABG O2 Saturation ABG Base Excess ABG Hemoglobin ABG Oxyhemoglobin ABG Sodium ABG Potassium ABG Chloride ABG Glucose Oxyhemoglobin Carboxyhemoglobin Sodium 135 L Potassium 3.0 L Chloride 93.1 L Carbon Dioxide 40 H BUN Creatinine 0.3 L Glucose 140 H POC Glucose 223 H Lactic Acid Calcium Magnesium Ferritin Total Bilirubin Direct Bilirubin AST ALT Alkaline Phosphatase Lactate Dehydrogenase C-Reactive Protein Total Protein Albumin Triglycerides Lipase Arterial Blood Glucose Arterial Blood Ionized Calcium Urine WBC (Auto) Coronavirus (PCR) SARS-CoV-2 IgG Ab Crossmatch 07/01/20 07/01/20 07/02/20 17:09 23:19 00:56 WBC RBC Hgb Hct MCV MCH MCHC RDW Lymph % (Auto) Lymph # (Auto) [place] # (Auto) Baso # (Auto) Seg Neutrophils % Seg Neuts % (Manual) Lymphocytes % (Manual) Nucleated RBC % Seg Neutrophils # Seg Neutrophils # Man Lymphocytes # (Manual) Monocytes # (Manual) Eosinophils # (Manual) PT INR APTT D-Dimer Heparin Anti-Xa Level 0.22 L ABG pH POC ABG pCO2 POC ABG pO2 ABG pO2 ABG HCO3 ABG O2 Saturation ABG Base Excess ABG Hemoglobin ABG Oxyhemoglobin ABG Sodium ABG Potassium ABG Chloride ABG Glucose Oxyhemoglobin Carboxyhemoglobin Sodium Potassium Chloride Carbon Dioxide BUN Creatinine Glucose POC Glucose 233 H 255 H Lactic Acid Calcium Magnesium Ferritin Total Bilirubin Direct Bilirubin AST ALT Alkaline Phosphatase Lactate Dehydrogenase C-Reactive Protein Total Protein Albumin Triglycerides Lipase Arterial Blood Glucose Arterial Blood Ionized Calcium Urine WBC (Auto) Coronavirus (PCR) SARS-CoV-2 IgG Ab Crossmatch 07/02/20 07/02/20 07/02/20 03:51 05:35 11:39 WBC RBC Hgb Hct MCV MCH MCHC RDW Lymph % (Auto) Lymph # (Auto) [place] # (Auto) Baso # (Auto) Seg Neutrophils % Seg Neuts % (Manual) Lymphocytes % (Manual) Nucleated RBC % Seg Neutrophils # Seg Neutrophils # Man Lymphocytes # (Manual) Monocytes # (Manual) Eosinophils # (Manual) PT INR APTT D-Dimer Heparin Anti-Xa Level ABG pH POC ABG pCO2 54.9 H POC ABG pO2 52.1 L ABG pO2 ABG HCO3 ABG O2 Saturation ABG Base Excess ABG Hemoglobin 11.9 L ABG Oxyhemoglobin 82.8 L ABG Sodium 130.2 L ABG Potassium ABG Chloride 92.0 L ABG Glucose 249 H Oxyhemoglobin Carboxyhemoglobin 1.9 H Sodium Potassium Chloride Carbon Dioxide BUN Creatinine Glucose POC Glucose 205 H 235 H Lactic Acid Calcium Magnesium Ferritin Total Bilirubin Direct Bilirubin AST ALT Alkaline Phosphatase Lactate Dehydrogenase C-Reactive Protein Total Protein Albumin Triglycerides Lipase Arterial Blood Glucose 249 H Arterial Blood Ionized Calcium Urine WBC (Auto) Coronavirus (PCR) SARS-CoV-2 IgG Ab Crossmatch 07/02/20 07/02/20 07/02/20 16:08 16:08 17:54 WBC 19.8 H RBC 3.28 L Hgb 10.7 L D Hct 32.7 L D MCV 100 H MCH 33 H MCHC RDW 17.2 H Lymph % (Auto) Lymph # (Auto) [place] # (Auto) Baso # (Auto) Seg Neutrophils % Seg Neuts % (Manual) Lymphocytes % (Manual) Nucleated RBC % Seg Neutrophils # Seg Neutrophils # Man Lymphocytes # (Manual) Monocytes # (Manual) Eosinophils # (Manual) PT INR APTT D-Dimer Heparin Anti-Xa Level ABG pH POC ABG pCO2 POC ABG pO2 ABG pO2 ABG HCO3 ABG O2 Saturation ABG Base Excess ABG Hemoglobin ABG Oxyhemoglobin ABG Sodium ABG Potassium ABG Chloride ABG Glucose Oxyhemoglobin Carboxyhemoglobin Sodium 136 L Potassium Chloride 92.4 L Carbon Dioxide 35 H BUN Creatinine 0.3 L Glucose 203 H POC Glucose 175 H Lactic Acid Calcium Magnesium Ferritin Total Bilirubin Direct Bilirubin AST ALT Alkaline Phosphatase Lactate Dehydrogenase C-Reactive Protein Total Protein Albumin Triglycerides Lipase Arterial Blood Glucose Arterial Blood Ionized Calcium Urine WBC (Auto) Coronavirus (PCR) SARS-CoV-2 IgG Ab Crossmatch 07/02/20 07/03/20 07/03/20 23:46 03:25 05:54 WBC RBC Hgb Hct MCV MCH MCHC RDW Lymph % (Auto) Lymph # (Auto) [place] # (Auto) Baso # (Auto) Seg Neutrophils % Seg Neuts % (Manual) Lymphocytes % (Manual) Nucleated RBC % Seg Neutrophils # Seg Neutrophils # Man Lymphocytes # (Manual) Monocytes # (Manual) Eosinophils # (Manual) PT INR APTT D-Dimer Heparin Anti-Xa Level ABG pH 7.468 H POC ABG pCO2 51.5 H POC ABG pO2 ABG pO2 ABG HCO3 ABG O2 Saturation ABG Base Excess ABG Hemoglobin ABG Oxyhemoglobin ABG Sodium 130.2 L ABG Potassium ABG Chloride 91.0 L ABG Glucose 210 H Oxyhemoglobin Carboxyhemoglobin 1.6 H Sodium Potassium Chloride Carbon Dioxide BUN Creatinine Glucose POC Glucose 173 H 125 H Lactic Acid Calcium Magnesium Ferritin Total Bilirubin Direct Bilirubin AST ALT Alkaline Phosphatase Lactate Dehydrogenase C-Reactive Protein Total Protein Albumin Triglycerides Lipase Arterial Blood Glucose 210 H Arterial Blood Ionized Calcium Urine WBC (Auto) Coronavirus (PCR) SARS-CoV-2 IgG Ab Crossmatch 07/03/20 07/03/20 07/03/20 11:43 12:20 12:20 WBC 16.5 H RBC 3.13 L Hgb 10.4 L Hct 31.8 L MCV 102 H MCH 33 H MCHC RDW 17.2 H Lymph % (Auto) Lymph # (Auto) [place] # (Auto) Baso # (Auto) Seg Neutrophils % Seg Neuts % (Manual) Lymphocytes % (Manual) Nucleated RBC % Seg Neutrophils # Seg Neutrophils # Man Lymphocytes # (Manual) Monocytes # (Manual) Eosinophils # (Manual) PT INR APTT D-Dimer Heparin Anti-Xa Level ABG pH POC ABG pCO2 POC ABG pO2 ABG pO2 ABG HCO3 ABG O2 Saturation ABG Base Excess ABG Hemoglobin ABG Oxyhemoglobin ABG Sodium ABG Potassium ABG Chloride ABG Glucose Oxyhemoglobin Carboxyhemoglobin Sodium 132 L Potassium Chloride 88.5 L Carbon Dioxide 37 H BUN Creatinine 0.3 L Glucose 230 H POC Glucose 223 H Lactic Acid Calcium Magnesium Ferritin Total Bilirubin Direct Bilirubin AST ALT Alkaline Phosphatase Lactate Dehydrogenase C-Reactive Protein Total Protein Albumin Triglycerides Lipase Arterial Blood Glucose Arterial Blood Ionized Calcium Urine WBC (Auto) Coronavirus (PCR) SARS-CoV-2 IgG Ab Crossmatch 07/03/20 07/03/20 07/04/20 17:24 21:41 00:54 WBC RBC Hgb Hct MCV MCH MCHC RDW Lymph % (Auto) Lymph # (Auto) [place] # (Auto) Baso # (Auto) Seg Neutrophils % Seg Neuts % (Manual) Lymphocytes % (Manual) Nucleated RBC % Seg Neutrophils # Seg Neutrophils # Man Lymphocytes # (Manual) Monocytes # (Manual) Eosinophils # (Manual) PT INR APTT D-Dimer Heparin Anti-Xa Level ABG pH POC ABG pCO2 POC ABG pO2 ABG pO2 ABG HCO3 ABG O2 Saturation ABG Base Excess ABG Hemoglobin ABG Oxyhemoglobin ABG Sodium ABG Potassium ABG Chloride ABG Glucose Oxyhemoglobin Carboxyhemoglobin Sodium Potassium Chloride Carbon Dioxide BUN Creatinine Glucose POC Glucose 163 H 220 H 195 H Lactic Acid Calcium Magnesium Ferritin Total Bilirubin Direct Bilirubin AST ALT Alkaline Phosphatase Lactate Dehydrogenase C-Reactive Protein Total Protein Albumin Triglycerides Lipase Arterial Blood Glucose Arterial Blood Ionized Calcium Urine WBC (Auto) Coronavirus (PCR) SARS-CoV-2 IgG Ab Crossmatch 07/04/20 07/04/20 07/04/20 03:25 04:00 04:00 WBC 14.9 H RBC 2.91 L Hgb 9.5 L Hct 29.2 L MCV 100 H MCH 33 H MCHC RDW 16.7 H Lymph % (Auto) 8.4 L Lymph # (Auto) [place] # (Auto) 1.1 H Baso # (Auto) Seg Neutrophils % 84.2 H Seg Neuts % (Manual) Lymphocytes % (Manual) Nucleated RBC % Seg Neutrophils # 12.6 H Seg Neutrophils # Man Lymphocytes # (Manual) Monocytes # (Manual) Eosinophils # (Manual) PT INR APTT D-Dimer Heparin Anti-Xa Level ABG pH 7.474 H POC ABG pCO2 POC ABG pO2 51.8 L ABG pO2 ABG HCO3 ABG O2 Saturation ABG Base Excess ABG Hemoglobin ABG Oxyhemoglobin ABG Sodium ABG Potassium ABG Chloride ABG Glucose Oxyhemoglobin Carboxyhemoglobin Sodium Potassium 3.4 L Chloride 92.1 L Carbon Dioxide 34 H BUN Creatinine 0.3 L Glucose 173 H POC Glucose Lactic Acid Calcium Magnesium Ferritin Total Bilirubin Direct Bilirubin AST ALT Alkaline Phosphatase Lactate Dehydrogenase C-Reactive Protein Total Protein Albumin Triglycerides Lipase Arterial Blood Glucose Arterial Blood Ionized Calcium Urine WBC (Auto) Coronavirus (PCR) SARS-CoV-2 IgG Ab Crossmatch 07/04/20 07/04/20 07/04/20 06:18 11:39 17:18 WBC RBC Hgb Hct MCV MCH MCHC RDW Lymph % (Auto) Lymph # (Auto) [place] # (Auto) Baso # (Auto) Seg Neutrophils % Seg Neuts % (Manual) Lymphocytes % (Manual) Nucleated RBC % Seg Neutrophils # Seg Neutrophils # Man Lymphocytes # (Manual) Monocytes # (Manual) Eosinophils # (Manual) PT INR APTT D-Dimer Heparin Anti-Xa Level ABG pH POC ABG pCO2 POC ABG pO2 ABG pO2 ABG HCO3 ABG O2 Saturation ABG Base Excess ABG Hemoglobin ABG Oxyhemoglobin ABG Sodium ABG Potassium ABG Chloride ABG Glucose Oxyhemoglobin Carboxyhemoglobin Sodium Potassium Chloride Carbon Dioxide BUN Creatinine Glucose POC Glucose 158 H 257 H 148 H Lactic Acid Calcium Magnesium Ferritin Total Bilirubin Direct Bilirubin AST ALT Alkaline Phosphatase Lactate Dehydrogenase C-Reactive Protein Total Protein Albumin Triglycerides Lipase Arterial Blood Glucose Arterial Blood Ionized Calcium Urine WBC (Auto) Coronavirus (PCR) SARS-CoV-2 IgG Ab Crossmatch 07/04/20 07/05/20 07/05/20 23:23 03:13 05:18 WBC 13.3 H RBC 2.90 L Hgb 9.8 L Hct 29.3 L MCV 101 H MCH 34 H MCHC RDW 17.0 H Lymph % (Auto) 11.1 L Lymph # (Auto) [place] # (Auto) Baso # (Auto) Seg Neutrophils % 82.3 H Seg Neuts % (Manual) Lymphocytes % (Manual) Nucleated RBC % Seg Neutrophils # 10.9 H Seg Neutrophils # Man Lymphocytes # (Manual) Monocytes # (Manual) Eosinophils # (Manual) PT INR APTT D-Dimer Heparin Anti-Xa Level ABG pH 7.48 H POC ABG pCO2 52.0 H POC ABG pO2 ABG pO2 ABG HCO3 ABG O2 Saturation ABG Base Excess ABG Hemoglobin 10.0 L ABG Oxyhemoglobin ABG Sodium 131.0 L ABG Potassium 3.3 L ABG Chloride 93.0 L ABG Glucose 177 H Oxyhemoglobin Carboxyhemoglobin Sodium Potassium Chloride Carbon Dioxide BUN Creatinine Glucose POC Glucose 227 H Lactic Acid Calcium Magnesium Ferritin Total Bilirubin Direct Bilirubin AST ALT Alkaline Phosphatase Lactate Dehydrogenase C-Reactive Protein Total Protein Albumin Triglycerides Lipase Arterial Blood Glucose 177 H Arterial Blood Ionized Calcium Urine WBC (Auto) Coronavirus (PCR) SARS-CoV-2 IgG Ab Crossmatch 07/05/20 07/05/20 07/05/20 05:18 05:57 11:37 WBC RBC Hgb Hct MCV MCH MCHC RDW Lymph % (Auto) Lymph # (Auto) [place] # (Auto) Baso # (Auto) Seg Neutrophils % Seg Neuts % (Manual) Lymphocytes % (Manual) Nucleated RBC % Seg Neutrophils # Seg Neutrophils # Man Lymphocytes # (Manual) Monocytes # (Manual) Eosinophils # (Manual) PT INR APTT D-Dimer Heparin Anti-Xa Level ABG pH POC ABG pCO2 POC ABG pO2 ABG pO2 ABG HCO3 ABG O2 Saturation ABG Base Excess ABG Hemoglobin ABG Oxyhemoglobin ABG Sodium ABG Potassium ABG Chloride ABG Glucose Oxyhemoglobin Carboxyhemoglobin Sodium Potassium 3.4 L Chloride 92.5 L Carbon Dioxide 36 H BUN Creatinine 0.3 L Glucose 148 H POC Glucose 170 H 195 H Lactic Acid Calcium Magnesium Ferritin Total Bilirubin Direct Bilirubin AST ALT Alkaline Phosphatase Lactate Dehydrogenase C-Reactive Protein Total Protein Albumin Triglycerides Lipase Arterial Blood Glucose Arterial Blood Ionized Calcium Urine WBC (Auto) Coronavirus (PCR) SARS-CoV-2 IgG Ab Crossmatch Chest x-ray: image reviewed (ETT ridfing high) Allied health notes reviewed: nursing
--- NOTE | 2020-07-05 14:31 | Progress Note ---
Assessment and Plan - Acute hypoxemic respiratory failure; Patient intubated and on vent support weaning protocol - need tach placement --Severe COVID-19 bilateral pneumonia Coronavirus protocol: IV steroid therapy, completed remdesivir, isolation precautions, contact precautions, prone positioning while in bed, pulmonary toilet. ID following SARS CoV-2 IgG positive patient is NOT a candidate for COVID convalescent plasma Covid test came negative on 06/30/20 --Severe sepsis/septic shock, due to COVID 19 PNA cont pressors as needed -- Acute kidney injury (SEN) , likely vasomotor nephropathy Resolved, IV fluids, avoid nephrotoxins --Acute on chronic anemia Guaiac test positive GI evaluation PPIs Continue to monitor -- Elevated liver function tests Suspected secondary to alcoholic liver disease. Supportive care, alcohol cessation, patient counseled. --Colonic pseudoobstruction likely from acute on chronic illness GI evaluation -recommend stool softeners Serial abdominal x-rays Monitor electrolytes and replete --History of alcohol dependence, status post CIWA protocol along with thiamine folic acid and multivitamin --right pneumothorax, s/p right chest tube placed on 06/21/20 Patient will need chest tube until patient is extubated -- DVT prophylaxis On therapeutic Lovenox The high probability of a clinically significant, sudden or life threatening deterioration of the [respiratory] system(s) required my full and direct attention, intervention and personal management. The aggregate critical care time was [31] minutes. This time is in addition to time spent performing reported procedures but includes the following: [x] Data Review and interpretation [x] Patient assessment and monitoring of vital signs [x] Documentation [x] Medication orders and management Brief History: 50 YO Male with Obesity, ETOH Dependence presents to ED for evaluation for shortness of breath, generalized weakness, fatigue, malaise, body aches, decreased exercise tolerance over the past 5 days. EMS was notified and upon arrival the patient was found to be in distress with a pulse oximetry of 76% on room air as well as fever to 103 F. In the ER chest x-ray and was found to have bilateral pneumonia. Patient admitted to medical floor and initiated on pneumonia protocol as well as COVID-19 protocol. Patient reports being diagnosed with coronavirus 2 days ago before admission. 05/10- 05/17: follow inflammatory markers, consulted ID/pulmonary. patient on high flow O2 05/18/20; patient feels slightly better still hypoxic, requiring continuous high flow oxygen and BiPAP Respiratory team trying to wean 05/19/20; patient is severely hypoxemic requiring continuous BiPAP today, com plains of generalized weakness Trying to wean off high flow oxygen, patient is in isolation 05/20/2020; patient remains on high flow oxygen/BiPAP/100% nonrebreather. Still is hypoxemic Has sinus tachycardia patient in mild distress Wean off high flow oxygen as tolerated, pulmonary critical following 05/21/20; patient is critically ill, on continuous BiPAP remains hypoxemic in mild distress. Patient has severe Covid Pneumonia with persistent hypoxemia and poor prognosis. 05/22/2020: Patient was intubated last night because of persistent hypoxemia. 05/23-06/15: Remains on ventilatory support, unable to wean off from the vent. 06/16/2020. Patient currently on mechanical ventilation with AC mode rate 30, tidal volume 500, FiO2 70% and PEEP of 16. Continue anticoagulation with Lovenox 110 milligrams subcu every 12 hours. Wean sedation of fentanyl/Versed as needed. Currently with IV steroids of Solu-Medrol 40 mg IV every 12 hours. Patient will likely need tracheostomy per pulmonary recommendations. Continue pressors to maintain MAP > 65. 06/17/2020. Patient currently on mechanical ventilation with AC mode rate 30, tidal volume 500, FiO2 65% and PEEP of 16. Continue anticoagulation with Lovenox 110 milligrams subcu every 12 hours. Wean sedation of fentanyl/Versed as needed. Currently with IV steroids of Solu-Medrol 40 mg IV every 12 hours. Patient will likely need tracheostomy per pulmonary recommendations. 06/18/2020. Patient currently on mechanical ventilation with AC mode rate 30, tidal volume 500, FiO2 70% and PEEP of 16. Continue Lovenox for anticoagulation and fentanyl/Versed for sedation. Wean steroids per pulmonary. CIWA protocol initiated for history of EtOH dependence 06/19/2020. Patient currently on mechanical ventilation with AC mode rate 30, tidal volume 500, FiO2 60% and PEEP of 16. Wean FiO2 as tolerated per protocol. Continue Lovenox for anticoagulation and fentanyl/Versed for sedation. Wean steroids per pulmonary. CIWA protocol initiated for history of EtOH dependence 06/20/2020. Patient currently on mechanical ventilation with AC mode rate 30, tidal volume 500, FiO2 60% and PEEP of 16. Wean FiO2 as tolerated, SBT per protocol. Continue Lovenox for anticoagulation and fentanyl/Versed for sedation. Wean steroids per pulmonary. Continue pressors to maintain MAP > 65 mmHg. Patient remains on ETT. Consider tracheostomy placement once oxygenation is better per pulmonary. CIWA protocol initiated for history of EtOH dependence. 06/21/2020. Patient with a small apical pneumothorax discovered yesterday. General surgery consulted and consider placing chest tube. Follow-up serial chest x-ray patient currently on mechanical ventilation with AC mode rate 30, tidal volume 500, FiO2 60% and PEEP of 16. Wean FiO2 as tolerated, SBT per protocol. Continue Lovenox for anticoagulation and fentanyl/Versed for sedation. Wean steroids per pulmonary. Continue pressors to maintain MAP > 65 mmHg. Patient remains on ETT. Consider tracheostomy placement once oxygenation is better per pulmonary. CIWA protocol initiated for history of EtOH dependence. 06/22. Status post right chest tube placement yesterday. Remains mechanically ventilated on pressors. Examination today shows slightly distended abdomen. KUB ordered. Awaiting stool guaiac. Plan to get a GI evaluation. 06/23. Has colonic distention on the x-ray. Discussed with GI-advised stool softeners for now and close monitoring. No indication for colonic decompression at this time. Guaiac test is positive. No emergent indication for endoscopy at this point as per GI. Continue to monitor hemoglobin. 06/24. Remains intubated. On pressors. GI following for positive guaiac stool and anemia, and colonic distention. 06/25. Repeat abdominal xray ordered. Remains on mechanical ventilation. 06/26. Abdominal xray - resolved colonic distension. Mechanically ventilated. 06/27. Plan for trach and PEG. 06/28: Awaiting trach and Peg. Some Bm REPORTED, will continue to monitor 06/29: Resume care, patient remains on ventilator support, waiting on trach and PEG placement. BM reported by the RN, continue to monitor. 06/30: Unable to wean off from vent, patient will need trach and PEG. Continue supportive care, tolerating tube feed. Monitor CBC and BMP 07/01: Continue mechanical ventilation, tube feeding as tolerated. Sedation as needed per mechanical ventilation protocol. Waiting on trach and PEG placement. 07/02: Continue current management, tube feeding, monitor CBC and BMP. Need trach and PEG-waiting on scheduling. Pulmonary critical care following. 07/03: wean off vent as tolerated. follow clinically. need trach and PEG 07/04: unable to wean. CT head ordered to assess for any changes but too unstable to do the test. need trach and PEG. 07/05: plan for trach/peg - GS following. off pressor - on midodrine. renal function stable. intubated, but alert and can follow minor commend. discussed with daughter by phone. Subjective Date of service: 07/05/20 Principal diagnosis: Ac hypoxemic resp failure; COVID-19; Severe Sepsis; Shaggy PNA; Alcohol Abuse Interval history: Patient seen and examined Patient remains on mechanical ventilation Chest tube in place, alert Tolerating tube feeding Objective - Exam Narrative Exam: General appearance: Present: no distress, obese, intubated, alert - EENT Eyes: Present: PERRL ENT: Et tube in place - Neck Neck: Present: supple, - Respiratory Respiratory effort: on mechanical ventilation Respiratory: bilateral: diminished, rhonchi, CT tube in place - Cardiovascular Heart Sounds: Present: S1 & S2. Absent: rub, click - Extremities Extremities: pulses symmetrical, No edema Peripheral Pulses: within normal limits - Abdominal General gastrointestinal: Present: soft, non-tender, mild distended, normal bowel sounds Male genitourinary: Present: normal - Integumentary Integumentary: Present: clear, warm, dry - Musculoskeletal Musculoskeletal: generalized weakness - Psychiatric Psychiatric: Unable to assess - Neurologic Neurologic: Intubated but alert - Constitutional Vitals: Vital Signs - 12hr 07/05/20 07/05/20 07/05/20 02:45 03:00 03:15 Temperature Pulse Rate 105 H 94 H 88 Pulse Rate [ From Monitor] Respiratory 30 H 30 H 30 H Rate Blood Pressure 87/59 83/50 79/44 O2 Sat by Pulse 100 100 99 Oximetry 07/05/20 07/05/20 07/05/20 03:30 03:45 03:58 Temperature 98.2 F Pulse Rate 83 83 Pulse Rate [ From Monitor] Respiratory 30 H 0 L Rate Blood Pressure 94/65 94/57 O2 Sat by Pulse 100 100 Oximetry 07/05/20 07/05/20 07/05/20 04:00 04:15 04:20 Temperature Pulse Rate 81 80 80 Pulse Rate [ 81 From Monitor] Respiratory 30 H 30 H Rate Blood Pressure 93/61 96/65 96/65 O2 Sat by Pulse 100 100 100 Oximetry 07/05/20 07/05/20 07/05/20 04:30 04:45 05:00 Temperature Pulse Rate 79 78 79 Pulse Rate [ From Monitor] Respiratory 30 H 30 H 20 Rate Blood Pressure 98/64 98/64 98/64 O2 Sat by Pulse 100 100 100 Oximetry 07/05/20 07/05/20 07/05/20 05:16 05:30 05:45 Temperature Pulse Rate 81 81 81 Pulse Rate [ From Monitor] Respiratory 30 H 30 H 30 H Rate Blood Pressure 120/79 96/58 99/58 O2 Sat by Pulse 100 99 98 Oximetry 07/05/20 07/05/20 07/05/20 06:00 06:15 06:30 Temperature Pulse Rate 78 77 76 Pulse Rate [ From Monitor] Respiratory 30 H 30 H 30 H Rate Blood Pressure 92/54 92/56 92/58 O2 Sat by Pulse 99 99 100 Oximetry 07/05/20 07/05/20 07/05/20 06:45 07:00 07:15 Temperature Pulse Rate 74 73 72 Pulse Rate [ From Monitor] Respiratory 30 H 30 H 30 H Rate Blood Pressure 100/63 101/65 104/65 O2 Sat by Pulse 100 100 99 Oximetry 07/05/20 07/05/20 07/05/20 07:30 07:45 08:00 Temperature 97.6 F Pulse Rate 72 65 68 Pulse Rate [ 77 From Monitor] Respiratory 30 H 30 H 30 H Rate Blood Pressure 104/68 104/64 94/60 O2 Sat by Pulse 99 100 99 Oximetry 07/05/20 07/05/20 07/05/20 08:06 08:16 08:30 Temperature Pulse Rate 82 82 75 Pulse Rate [ From Monitor] Respiratory 25 H 30 H Rate Blood Pressure 126/70 126/70 113/71 O2 Sat by Pulse 100 100 100 Oximetry 07/05/20 07/05/20 07/05/20 08:45 09:00 09:15 Temperature Pulse Rate 101 H 115 H 114 H Pulse Rate [ From Monitor] Respiratory 15 25 H 22 Rate Blood Pressure 130/96 130/96 134/92 O2 Sat by Pulse 100 99 94 Oximetry 07/05/20 07/05/20 07/05/20 09:30 09:46 10:00 Temperature Pulse Rate 117 H 114 H 123 H Pulse Rate [ From Monitor] Respiratory 21 18 27 H Rate Blood Pressure 134/92 104/62 113/65 O2 Sat by Pulse 100 92 92 Oximetry 07/05/20 07/05/20 07/05/20 10:16 10:30 10:46 Temperature Pulse Rate 127 H 125 H 125 H Pulse Rate [ From Monitor] Respiratory 28 H 25 H 23 Rate Blood Pressure 131/82 131/82 132/82 O2 Sat by Pulse 92 91 94 Oximetry 07/05/20 07/05/20 07/05/20 11:00 11:15 11:30 Temperature Pulse Rate 121 H 120 H 118 H Pulse Rate [ From Monitor] Respiratory 27 H 24 24 Rate Blood Pressure 137/92 127/86 134/85 O2 Sat by Pulse 98 99 99 Oximetry 07/05/20 07/05/20 07/05/20 11:46 12:00 12:16 Temperature Pulse Rate 115 H 116 H 117 H Pulse Rate [ 117 H From Monitor] Respiratory 22 30 H 19 Rate Blood Pressure 136/74 133/97 117/76 O2 Sat by Pulse 100 100 99 Oximetry 07/05/20 07/05/20 07/05/20 12:22 12:30 12:46 Temperature Pulse Rate 119 H 115 H 115 H Pulse Rate [ From Monitor] Respiratory 19 19 Rate Blood Pressure 117/76 121/76 119/79 O2 Sat by Pulse 100 100 100 Oximetry 07/05/20 07/05/20 07/05/20 13:00 13:16 13:30 Temperature Pulse Rate 115 H 120 H 117 H Pulse Rate [ From Monitor] Respiratory 21 24 23 Rate Blood Pressure 127/62 133/76 127/67 O2 Sat by Pulse 100 96 97 Oximetry - Labs CBC & Chem 7: 07/05/20 05:18 07/05/20 05:18 Labs: Abnormal lab results 07/04/20 07/04/20 07/05/20 Range/Units 17:18 23:23 03:13 WBC (4.5-11.0) K/mm3 RBC (3.65-5.03) M/mm3 Hgb (11.8-15.2) gm/dl Hct (35.5-45.6) % MCV (84-94) fl MCH (28-32) pg RDW (13.2-15.2) % Lymph % (Auto) (13.4-35.0) % Seg Neutrophils % (40.0-70.0) % Seg Neutrophils # (1.8-7.7) K/mm3 ABG pH 7.48 H (7.320-7.450) POC ABG pCO2 52.0 H (32.0-48.0) mmHg ABG Hemoglobin 10.0 L (12.0-17.5) ABG Sodium 131.0 L (136.0-145.0) mmol/L ABG Potassium 3.3 L (3.40-4.50) mmol/L ABG Chloride 93.0 L (98-107) mmol/L ABG Glucose 177 H (65-95) mg/dL Potassium (3.6-5.0) mmol/L Chloride (98-107) mmol/L Carbon Dioxide (22-30) mmol/L Creatinine (0.8-1.3) mg/dL Glucose (75-100) mg/dL POC Glucose 148 H 227 H (70-105) mg/dL Arterial Blood Glucose 177 H (65-95) mg/dL 07/05/20 07/05/20 07/05/20 Range/Units 05:18 05:18 05:57 WBC 13.3 H (4.5-11.0) K/mm3 RBC 2.90 L (3.65-5.03) M/mm3 Hgb 9.8 L (11.8-15.2) gm/dl Hct 29.3 L (35.5-45.6) % MCV 101 H (84-94) fl MCH 34 H (28-32) pg RDW 17.0 H (13.2-15.2) % Lymph % (Auto) 11.1 L (13.4-35.0) % Seg Neutrophils % 82.3 H (40.0-70.0) % Seg Neutrophils # 10.9 H (1.8-7.7) K/mm3 ABG pH (7.320-7.450) POC ABG pCO2 (32.0-48.0) mmHg ABG Hemoglobin (12.0-17.5) ABG Sodium (136.0-145.0) mmol/L ABG Potassium (3.40-4.50) mmol/L ABG Chloride (98-107) mmol/L ABG Glucose (65-95) mg/dL Potassium 3.4 L (3.6-5.0) mmol/L Chloride 92.5 L (98-107) mmol/L Carbon Dioxide 36 H (22-30) mmol/L Creatinine 0.3 L (0.8-1.3) mg/dL Glucose 148 H (75-100) mg/dL POC Glucose 170 H (70-105) mg/dL Arterial Blood Glucose (65-95) mg/dL 07/05/20 Range/Units 11:37 WBC (4.5-11.0) K/mm3 RBC (3.65-5.03) M/mm3 Hgb (11.8-15.2) gm/dl Hct (35.5-45.6) % MCV (84-94) fl MCH (28-32) pg RDW (13.2-15.2) % Lymph % (Auto) (13.4-35.0) % Seg Neutrophils % (40.0-70.0) % Seg Neutrophils # (1.8-7.7) K/mm3 ABG pH (7.320-7.450) POC ABG pCO2 (32.0-48.0) mmHg ABG Hemoglobin (12.0-17.5) ABG Sodium (136.0-145.0) mmol/L ABG Potassium (3.40-4.50) mmol/L ABG Chloride (98-107) mmol/L ABG Glucose (65-95) mg/dL Potassium (3.6-5.0) mmol/L Chloride (98-107) mmol/L Carbon Dioxide (22-30) mmol/L Creatinine (0.8-1.3) mg/dL Glucose (75-100) mg/dL POC Glucose 195 H (70-105) mg/dL Arterial Blood Glucose (65-95) mg/dL
--- NOTE | 2020-07-05 14:39 | Consultation ---
History of Present Illness Consult date: 07/05/20 Reason for consult: other (Initial consult for trach/peg) Chief complaint: vent dependence - History of present illness History of present illness: 50 yo M who presented to ER at [facility] on 05/09/20 with SOB, weakness. He was found to be hypoxic and febrile. He was diagnosed with COVID PNA. He was intubated on 05/21/20 for respiratory decompensation and has been unable to wean since then. He has had a protracted hospital course. He was found to have a right pneumothorax for which a chest tube was placed. He has been afebrile and vent settings improving. Surgery is consulted today for evaluation for trach and PEG placement. Last COVID test on 06.30.20 was negative. He has been tolerating TF via OGT. He is off pressors. Past History Past Medical History: other (See HPI) Past Surgical History: No surgical history, Other (Reviewed) Social history: single, alcohol abuse Family history: diabetes, hypertension Medications and Allergies Allergies Allergy/AdvReac Type Severity Reaction Status Date / Time No Known Allergies Allergy Unverified 05/09/20 14:23 Home Medications Medication Instructions Recorded Confirmed Last Taken Type No Known Home Medications [No 05/09/20 05/09/20 Unknown History Reported Home Medications] Active Meds: Active Medications Acetaminophen (Tylenol) 650 mg FEEDTUBE Q4H PRN PRN Reason: Pain, Mild (1-3) Last Admin: 06/21/20 20:21 Dose: 650 mg Documented by: Alprazolam (Alprazolam 0.25 Mg Tab) 0.25 mg PO Q8H PRN PRN Reason: Anxiety Last Admin: 07/03/20 10:33 Dose: 0.25 mg Documented by: Lipase/Protease/Amylase (Lipase 10,500/Protease 25,000/Amylase 43,750 (Units) Dr Newell) 1 each FEEDTUBE PRN PRN PRN Reason: For Clogged Feeding Tube Bisacodyl (Bisacodyl 10 Mg Rect Supp) 10 mg DE BID [facility] Last Admin: 07/05/20 09:16 Dose: 10 mg Documented by: Docusate Sodium (Docusate Sodium 100 Mg/10 Ml Oral Liqd) 100 mg PO BID [facility] Last Admin: 07/05/20 09:16 Dose: 100 mg Documented by: Enoxaparin Sodium (Enoxaparin 120 Mg/0.8 Ml Inj) 110 mg SUB-Q Q12HR DESIRE; Protocol Last Admin: 07/05/20 09:15 Dose: 110 mg Documented by: Fentanyl (Fentanyl 100 Mcg/2 Ml Inj) 50 mcg IV Q10MIN PRN PRN Reason: ANALGESIA Folic Acid (Folvite) 1 mg PO QDAY DESIRE Last Admin: 07/05/20 09:16 Dose: 1 mg Documented by: Hydrophilic Ointment (Lip Therapy Vaseline) 1 applic TP Q2HR PRN PRN Reason: Dry Lips Midazolam HCl 100 mg/ Sodium (Chloride) 100 mls @ 2 mls/hr IV TITR DESIRE; Protocol Last Admin: 07/05/20 08:08 Dose: 4 mg/hr, 4 mls/hr Documented by: Norepinephrine (Levophed Drip 4 Mg/Ns 250 Ml) 4 mg in 250 mls @ 7.5 mls/hr IV TITR DESIRE; Protocol Last Titration: 07/05/20 12:05 Dose: 0 mcg/min, 0 mls/hr Documented by: Fentanyl Citrate (Fentanyl Drip Premix) 2,000 mcg in 100 mls @ 5.32 mls/hr IV TITR DESIRE; Protocol Last Admin: 07/05/20 12:14 Dose: 4 mcg/kg/hr, 21.28 mls/hr Documented by: Vasopressin 20 unit/ Sodium (Chloride) 101 mls @ 9.09 mls/hr IV TITR DESIRE; Protocol Dexmedetomidine HCl 1,000 mcg/ (Sodium Chloride) 260 mls @ 5.668 mls/hr IV TITRATE DESIRE; Protocol Last Titration: 07/05/20 09:16 Dose: 1.3 mcg/kg/hr, 36.842 mls/hr Documented by: Insulin Glargine (Insulin Glargine 100 Units/Ml) 30 units SUB-Q QHS DESIRE Last Admin: 07/04/20 21:47 Dose: 30 units Documented by: Insulin Glargine (Insulin Glargine 100 Units/Ml) 5 units SUB-Q DAILY DESIRE Insulin Human Lispro (Insulin Lispro 100 Unit/Ml Vial 3 Ml) 0 unit SUB-Q Q6H DESIRE; Protocol Last Admin: 07/05/20 11:37 Dose: 3 unit Documented by: Lansoprazole (Lansoprazole 30 Mg Solutab) 30 mg FEEDTUBE QDAY [facility] Last Admin: 07/05/20 09:16 Dose: 30 mg Documented by: Lorazepam (Lorazepam 2 Mg/Ml Vial) 1 mg IV Q1HR PRN PRN Reason: agitation Last Admin: 07/04/20 20:46 Dose: 1 mg Documented by: Methylprednisolone Sodium Succinate (Methylprednisolone Sod Succinate 40 Mg/1 Ml Inj) 40 mg IV Q12H [facility] Last Admin: 07/05/20 08:09 Dose: 40 mg Documented by: Metoprolol Tartrate (Metoprolol Tartrate 5 Mg/5 Ml Inj) 5 mg IV Q6HR PRN PRN Reason: Tachyarrhythmias Last Admin: 07/03/20 09:03 Dose: 5 mg Documented by: Midodrine (Midodrine 5 Mg Tab) 10 mg PO TID@0800,1200,1600 [facility] Last Admin: 07/05/20 12:06 Dose: 10 mg Documented by: Multi-Ingred Cream/Lotion/Oil/Oint (Mineral Oil/Petrolatum, White Ophth Oint 3.5 Gm) 1 applic OU Q4HR PRN PRN Reason: Dry Eye(s) Phenobarbital (Phenobarbital 32.4 Mg Tab) 32.4 mg PO BID [facility] Last Admin: 07/05/20 09:16 Dose: 32.4 mg Documented by: Quetiapine Fumarate (Quetiapine 100 Mg Tab) 100 mg PO TID [facility] Last Admin: 07/05/20 13:55 Dose: 100 mg Documented by: Quetiapine Fumarate (Quetiapine 200 Mg Tab) 200 mg PO TID [facility] Last Admin: 07/05/20 13:55 Dose: 200 mg Documented by: Senna (Senokot) 17.2 mg PO BID [facility] Last Admin: 07/05/20 09:16 Dose: 17.2 mg Documented by: Simple Syrup (Simple Syrup 15 Ml) 15 ml FEEDTUBE PRN PRN PRN Reason: Hypoglycemia Simple Syrup (Simple Syrup 15 Ml) 30 ml FEEDTUBE PRN PRN PRN Reason: Hypoglycemia Sodium Bicarbonate (Sodium Bicarbonate 325 Mg Tab) 325 mg FEEDTUBE PRN PRN PRN Reason: For Clogged Feeding Tube Sodium Chloride (Sodium Chloride Flush Syringe 10 Ml) 10 ml IV BID [facility] Last Admin: 07/05/20 09:15 Dose: 10 ml Documented by: Review of Systems ROS unobtainable: due to endotracheal tube Exam Vital Signs Pulse Ox 80 L 05/09/20 12:34 Narrative exam: Gen: Awake on vent. Follows all commands and nods yes/no to questions ENT: ETT and OGT in place CV: S1, S2+ Resp: on full vent support. R chest tube in place without leak Abd: soft, protuberant, mildly distended, NT Ext: edema Results - Labs 07/05/20 05:18 07/05/20 05:18 Abnormal lab results 07/04/20 07/04/20 07/05/20 Range/Units 17:18 23:23 03:13 WBC (4.5-11.0) K/mm3 RBC (3.65-5.03) M/mm3 Hgb (11.8-15.2) gm/dl Hct (35.5-45.6) % MCV (84-94) fl MCH (28-32) pg RDW (13.2-15.2) % Lymph % (Auto) (13.4-35.0) % Seg Neutrophils % (40.0-70.0) % Seg Neutrophils # (1.8-7.7) K/mm3 ABG pH 7.48 H (7.320-7.450) POC ABG pCO2 52.0 H (32.0-48.0) mmHg ABG Hemoglobin 10.0 L (12.0-17.5) ABG Sodium 131.0 L (136.0-145.0) mmol/L ABG Potassium 3.3 L (3.40-4.50) mmol/L ABG Chloride 93.0 L (98-107) mmol/L ABG Glucose 177 H (65-95) mg/dL Potassium (3.6-5.0) mmol/L Chloride (98-107) mmol/L Carbon Dioxide (22-30) mmol/L Creatinine (0.8-1.3) mg/dL Glucose (75-100) mg/dL POC Glucose 148 H 227 H (70-105) mg/dL Arterial Blood Glucose 177 H (65-95) mg/dL 07/05/20 07/05/20 07/05/20 Range/Units 05:18 05:18 05:57 WBC 13.3 H (4.5-11.0) K/mm3 RBC 2.90 L (3.65-5.03) M/mm3 Hgb 9.8 L (11.8-15.2) gm/dl Hct 29.3 L (35.5-45.6) % MCV 101 H (84-94) fl MCH 34 H (28-32) pg RDW 17.0 H (13.2-15.2) % Lymph % (Auto) 11.1 L (13.4-35.0) % Seg Neutrophils % 82.3 H (40.0-70.0) % Seg Neutrophils # 10.9 H (1.8-7.7) K/mm3 ABG pH (7.320-7.450) POC ABG pCO2 (32.0-48.0) mmHg ABG Hemoglobin (12.0-17.5) ABG Sodium (136.0-145.0) mmol/L ABG Potassium (3.40-4.50) mmol/L ABG Chloride (98-107) mmol/L ABG Glucose (65-95) mg/dL Potassium 3.4 L (3.6-5.0) mmol/L Chloride 92.5 L (98-107) mmol/L Carbon Dioxide 36 H (22-30) mmol/L Creatinine 0.3 L (0.8-1.3) mg/dL Glucose 148 H (75-100) mg/dL POC Glucose 170 H (70-105) mg/dL Arterial Blood Glucose (65-95) mg/dL 07/05/20 Range/Units 11:37 WBC (4.5-11.0) K/mm3 RBC (3.65-5.03) M/mm3 Hgb (11.8-15.2) gm/dl Hct (35.5-45.6) % MCV (84-94) fl MCH (28-32) pg RDW (13.2-15.2) % Lymph % (Auto) (13.4-35.0) % Seg Neutrophils % (40.0-70.0) % Seg Neutrophils # (1.8-7.7) K/mm3 ABG pH (7.320-7.450) POC ABG pCO2 (32.0-48.0) mmHg ABG Hemoglobin (12.0-17.5) ABG Sodium (136.0-145.0) mmol/L ABG Potassium (3.40-4.50) mmol/L ABG Chloride (98-107) mmol/L ABG Glucose (65-95) mg/dL Potassium (3.6-5.0) mmol/L Chloride (98-107) mmol/L Carbon Dioxide (22-30) mmol/L Creatinine (0.8-1.3) mg/dL Glucose (75-100) mg/dL POC Glucose 195 H (70-105) mg/dL Arterial Blood Glucose (65-95) mg/dL Diabetes panel 07/05/20 Range/Units 05:18 Sodium 138 (137-145) mmol/L Potassium 3.4 L (3.6-5.0) mmol/L Chloride 92.5 L (98-107) mmol/L Carbon Dioxide 36 H (22-30) mmol/L BUN 13 (9-20) mg/dL Creatinine 0.3 L (0.8-1.3) mg/dL Glucose 148 H (75-100) mg/dL Calcium 8.9 (8.4-10.2) mg/dL Calcium panel 07/05/20 Range/Units 05:18 Calcium 8.9 (8.4-10.2) mg/dL Pituitary panel 07/05/20 Range/Units 05:18 Sodium 138 (137-145) mmol/L Potassium 3.4 L (3.6-5.0) mmol/L Chloride 92.5 L (98-107) mmol/L Carbon Dioxide 36 H (22-30) mmol/L BUN 13 (9-20) mg/dL Creatinine 0.3 L (0.8-1.3) mg/dL Glucose 148 H (75-100) mg/dL Calcium 8.9 (8.4-10.2) mg/dL Adrenal panel 07/05/20 Range/Units 05:18 Sodium 138 (137-145) mmol/L Potassium 3.4 L (3.6-5.0) mmol/L Chloride 92.5 L (98-107) mmol/L Carbon Dioxide 36 H (22-30) mmol/L BUN 13 (9-20) mg/dL Creatinine 0.3 L (0.8-1.3) mg/dL Glucose 148 H (75-100) mg/dL Calcium 8.9 (8.4-10.2) mg/dL - Imaging Chest x-ray: report reviewed, image reviewed Assessment and Plan 50 yo M with 1. VDRF 2. COVID PNA 3. R PTX Vent settings: AC PRVC 40% FIO2, RR30, PEEP 8, TV 500 Plan: 1. Vent weaning per ICU team 2. continue TF via OGT 3. on therapeutic anticoagulation - will need to be held 24 hours prior to tracheostomy placement once scheduled 4. Discussed with Dr. Delgado who feels trach will be safest way to wean patient from vent as he has been intubated for 6 weeks now with persistent disease on CXR 5. Discussed trach placement with patient who appears to be alert, following commands. He is not agreeable to trach placement at this time. Will discuss with him again in am and will reach out to family/NOK. 6. continue chest tube to -[id number] suction via pleurevac Thank you, please call with questions
[2020-07-05] MEDS: INSULIN GLARGINE 100 UNITS/ML SUB-Q SCH ×2 (15:43→22:00)
[2020-07-06] MEDS: fentaNYL DRIP Premix 2,000 MCG/100 ML BAG IV SCH ×4 (00:07→18:19)
[2020-07-06] MEDS: INSULIN LISPRO 100 UNIT/ML VIAL 3 mL SUB-Q SCH ×4 (00:07→18:06)
[2020-07-06] MEDS: LORazepam 2 MG/ML VIAL IV PRN ×2 (01:14→18:11)
[2020-07-06] MEDS: NORepinephrine/NS 4 MG-250 ML 4 MG/250 ML BAG IV SCH (03:20)
[2020-07-06] MEDS: dexmedeTOMIDine 1,000 MCG in SODIUM CHLORIDE 0.9% 250ML 250 ML IV SCH ×3 (06:14→18:41)
[2020-07-06] MEDS: methylPREDNISolone Sod Succinate 40 MG/1 ML INJ IV SCH ×2 (06:26→18:11)
[2020-07-06 08:09] LABS: Blood Urea Nitrogen 15 mg/dL (9-20); Calcium 9.4 mg/dL (8.4-10.2); Hemolysis Index 34
[2020-07-06 08:11] LABS: Hematocrit 31.5 % (35.5-45.6); Hemoglobin 10.4 gm/dl (11.8-15.2); Mean Corpuscular HGB Conc 33 % (32-34); Mean Corpuscular Volume 99 fl (84-94); Platelet Count 333 K/mm3 (140-440); Red Blood Count 3.17 M/mm3 (3.65-5.03)
[2020-07-06 08:12] LABS: BUN/Creatinine Ratio 50
[2020-07-06] MEDS ORDERED: POTASSIUM CHLORIDE 20 MEQ PACKET FEEDTUBE ONE (09:00)
[2020-07-06] MEDS: DOCUSATE SODIUM 100 MG/10 ML ORAL LIQD PO SCH ×2 (10:31→21:21)
[2020-07-06] MEDS: LANSOPRAZOLE 30 MG SOLUTAB FEEDTUBE SCH (10:31)
[2020-07-06] MEDS: MIDODRINE 5 MG TAB PO SCH ×2 (10:31→11:24)
[2020-07-06] MEDS: INSULIN GLARGINE 100 UNITS/ML SUB-Q SCH ×2 (10:31→21:32)
[2020-07-06] MEDS: SENNOSIDES 8.6 MG TAB PO SCH ×2 (10:31→21:21)
[2020-07-06] MEDS: FOLIC ACID 1 MG TAB PO SCH (10:32)
[2020-07-06] MEDS: ENOXAPARIN 120 MG/0.8 ML INJ SUB-Q SCH ×2 (10:32→21:20)
[2020-07-06] MEDS: PHENobarbital 32.4 MG TAB PO SCH ×2 (10:32→21:21)
--- NOTE | 2020-07-06 10:34 | Progress Note ---
Assessment and Plan 50 yo M with 1. VDRF 2. COVID PNA 3. R PTX Vent settings: AC PRVC 40% FIO2, RR30, PEEP 8, TV 500 Plan: 1. Vent weaning per ICU team 2. continue TF via OGT 3. on therapeutic anticoagulation - will need to be held 24 hours prior to trach eostomy placement once scheduled 4. Discussed with Dr. Delgado who feels trach will be safest way to wean patient from vent as he has been intubated for 6 weeks now with persistent disease on CXR. 5. chest tube to -[id number] suction via pleurevac Pt on versed and fent gtt, although he is awake on vent unsure if he comprehends need for trach/peg. Discussed with his daughter Tracie Weston in great detail. Explained the indication for trach/peg along with risk of tracheal stricture/tracheomalacia that comes along with prolonged intubation. Also discussed risks and benefits of both procedures. Explained that both tubes can be temporary. She understands and all questions answered. She is not ready to consent to the procedures at this time. Would like time to think about it and see if patient improves on his own. I will follow up with her in [address] Delgado. Thank you, please call with questions Subjective Date of service: 07/06/20 Narrative: Pt seen and examined. On levophed 2mcg for hypotension. No f/c. Objective Vital Signs - 12hr 07/05/20 07/05/20 07/05/20 22:31 22:45 23:01 Temperature Pulse Rate 116 H 115 H 116 H Pulse Rate [ From Monitor] Respiratory 22 22 25 H Rate Blood Pressure 117/72 100/76 96/66 O2 Sat by Pulse 93 96 99 Oximetry 07/05/20 07/05/20 07/05/20 23:15 23:27 23:31 Temperature Pulse Rate 117 H 119 H 113 H Pulse Rate [ From Monitor] Respiratory 21 18 19 Rate Blood Pressure 96/66 96/66 123/74 O2 Sat by Pulse 100 100 100 Oximetry 07/05/20 07/05/20 07/06/20 23:45 23:57 00:00 Temperature 98.4 F Pulse Rate 113 H 110 H 110 H Pulse Rate [ 112 H From Monitor] Respiratory 16 22 Rate Blood Pressure 121/68 121/78 121/78 O2 Sat by Pulse 100 100 Oximetry 07/06/20 07/06/20 07/06/20 00:15 00:30 00:45 Temperature Pulse Rate 117 H 114 H 120 H Pulse Rate [ From Monitor] Respiratory 25 H 23 24 Rate Blood Pressure 127/74 113/75 126/81 O2 Sat by Pulse 99 100 98 Oximetry 07/06/20 07/06/20 07/06/20 01:01 01:15 01:30 Temperature Pulse Rate 112 H 111 H 105 H Pulse Rate [ From Monitor] Respiratory 23 22 20 Rate Blood Pressure 126/81 112/69 108/67 O2 Sat by Pulse 100 100 97 Oximetry 07/06/20 07/06/20 07/06/20 01:45 02:00 02:15 Temperature Pulse Rate 107 H 104 H 89 Pulse Rate [ From Monitor] Respiratory 16 26 H 30 H Rate Blood Pressure 103/64 118/64 91/48 O2 Sat by Pulse 100 100 100 Oximetry 07/06/20 07/06/20 07/06/20 02:31 02:45 03:00 Temperature Pulse Rate 80 74 71 Pulse Rate [ From Monitor] Respiratory 30 H 30 H 30 H Rate Blood Pressure 77/41 68/43 77/50 O2 Sat by Pulse 100 100 100 Oximetry 07/06/20 07/06/20 07/06/20 03:15 03:30 03:44 Temperature 98.2 F Pulse Rate 72 68 Pulse Rate [ From Monitor] Respiratory 30 H 30 H Rate Blood Pressure 81/49 69/42 O2 Sat by Pulse 100 100 Oximetry 07/06/20 07/06/20 07/06/20 03:45 03:49 04:00 Temperature Pulse Rate 64 70 72 Pulse Rate [ 70 From Monitor] Respiratory 30 H 30 H Rate Blood Pressure 159/88 159/88 O2 Sat by Pulse 100 100 97 Oximetry 07/06/20 07/06/20 07/06/20 04:01 04:15 04:30 Temperature Pulse Rate 70 71 70 Pulse Rate [ From Monitor] Respiratory 30 H 30 H 30 H Rate Blood Pressure 132/78 133/78 131/77 O2 Sat by Pulse 99 97 100 Oximetry 07/06/20 07/06/20 07/06/20 04:45 05:00 05:15 Temperature Pulse Rate 72 70 69 Pulse Rate [ From Monitor] Respiratory 30 H 30 H 30 H Rate Blood Pressure 126/72 122/71 119/70 O2 Sat by Pulse 98 98 98 Oximetry 07/06/20 07/06/20 07/06/20 05:30 05:45 06:01 Temperature Pulse Rate 69 69 100 H Pulse Rate [ From Monitor] Respiratory 30 H 30 H 18 Rate Blood Pressure 119/69 121/68 121/68 O2 Sat by Pulse 98 97 92 Oximetry 07/06/20 07/06/20 07/06/20 06:15 06:31 06:45 Temperature Pulse Rate 97 H 122 H 119 H Pulse Rate [ From Monitor] Respiratory 30 H 26 H 22 Rate Blood Pressure 118/73 121/81 132/70 O2 Sat by Pulse 97 100 96 Oximetry 07/06/20 07/06/20 07/06/20 07:00 07:15 07:30 Temperature Pulse Rate 115 H 106 H 103 H Pulse Rate [ From Monitor] Respiratory 28 H 21 21 Rate Blood Pressure 126/81 126/77 135/77 O2 Sat by Pulse 95 97 99 Oximetry 07/06/20 07/06/20 07/06/20 07:45 08:00 08:15 Temperature Pulse Rate 102 H 104 H 103 H Pulse Rate [ From Monitor] Respiratory 20 25 H 24 Rate Blood Pressure 135/75 132/77 129/79 O2 Sat by Pulse 98 100 100 Oximetry 07/06/20 07/06/20 07/06/20 08:30 08:41 08:45 Temperature Pulse Rate 102 H 105 H 104 H Pulse Rate [ From Monitor] Respiratory 18 21 Rate Blood Pressure 138/71 138/71 135/87 O2 Sat by Pulse 100 99 100 Oximetry 07/06/20 07/06/20 07/06/20 09:01 09:15 09:30 Temperature Pulse Rate 99 H 105 H 107 H Pulse Rate [ From Monitor] Respiratory 18 22 25 H Rate Blood Pressure 132/73 125/79 134/77 O2 Sat by Pulse 100 98 100 Oximetry 07/06/20 07/06/20 07/06/20 09:45 10:00 10:15 Temperature Pulse Rate 104 H 107 H 105 H Pulse Rate [ From Monitor] Respiratory 22 19 15 Rate Blood Pressure 132/78 128/77 127/78 O2 Sat by Pulse 100 100 100 Oximetry - General physical appearance Narrative Exam: Gen: Awake on vent, on sedation. NAD ENT: ETT and OGT in place CV: S1, S2+ Resp: on vent support Abd: soft, NT, ND Ext: edema - Labs 07/06/20 06:52 07/06/20 06:52 Diabetes panel 07/06/20 Range/Units 06:52 Sodium 135 L (137-145) mmol/L Potassium 3.4 L (3.6-5.0) mmol/L Chloride 91.9 L (98-107) mmol/L Carbon Dioxide 38 H (22-30) mmol/L BUN 15 (9-20) mg/dL Creatinine 0.3 L (0.8-1.3) mg/dL Glucose 189 H (75-100) mg/dL Calcium 9.4 (8.4-10.2) mg/dL Calcium panel 07/06/20 Range/Units 06:52 Calcium 9.4 (8.4-10.2) mg/dL Pituitary panel 07/06/20 Range/Units 06:52 Sodium 135 L (137-145) mmol/L Potassium 3.4 L (3.6-5.0) mmol/L Chloride 91.9 L (98-107) mmol/L Carbon Dioxide 38 H (22-30) mmol/L BUN 15 (9-20) mg/dL Creatinine 0.3 L (0.8-1.3) mg/dL Glucose 189 H (75-100) mg/dL Calcium 9.4 (8.4-10.2) mg/dL Adrenal panel 07/06/20 Range/Units 06:52 Sodium 135 L (137-145) mmol/L Potassium 3.4 L (3.6-5.0) mmol/L Chloride 91.9 L (98-107) mmol/L Carbon Dioxide 38 H (22-30) mmol/L BUN 15 (9-20) mg/dL Creatinine 0.3 L (0.8-1.3) mg/dL Glucose 189 H (75-100) mg/dL Calcium 9.4 (8.4-10.2) mg/dL
[2020-07-06] MEDS: QUEtiapine 200 MG TAB PO SCH ×3 (11:23→20:08)
[2020-07-06] MEDS: QUEtiapine 100 MG TAB PO SCH ×3 (11:23→20:08)
--- NOTE | 2020-07-06 11:43 | Progress Note ---
Assessment and Plan Assessment and plan: - Acute hypoxemic respiratory failure; Patient intubated and on vent support weaning protocol - need tach placement --Severe COVID-19 bilateral pneumonia Coronavirus protocol: IV steroid therapy, completed remdesivir, isolation precautions, contact precautions, prone positioning while in bed, pulmonary toilet. ID following SARS CoV-2 IgG positive patient is NOT a candidate for COVID convalescent plasma Covid test came negative on 06/30/20 --Severe sepsis/septic shock, due to COVID 19 PNA cont pressors as needed -- Acute kidney injury (SEN) , likely vasomotor nephropathy Resolved, IV fluids, avoid nephrotoxins --Acute on chronic anemia Guaiac test positive GI evaluation PPIs Continue to monitor -- Elevated liver function tests Suspected secondary to alcoholic liver disease. Supportive care, alcohol cessation, patient counseled. --Colonic pseudoobstruction likely from acute on chronic illness GI evaluation -recommend stool softeners Serial abdominal x-rays Monitor electrolytes and replete --History of alcohol dependence, status post CIWA protocol along with thiamine folic acid and multivitamin --right pneumothorax, s/p right chest tube placed on 06/21/20 Patient will need chest tube until patient is extubated -- DVT prophylaxis On therapeutic Lovenox The high probability of a clinically significant, sudden or life threatening deterioration of the [respiratory] system(s) required my full and direct attention, intervention and personal management. The aggregate critical care time was [31] minutes. This time is in addition to time spent performing reported procedures but includes the following: [x] Data Review and interpretation [x] Patient assessment and monitoring of vital signs [x] Documentation [x] Medication orders and management Brief History: 50 YO Male with Obesity, ETOH Dependence presents to ED for evaluation for shortness of breath, generalized weakness, fatigue, malaise, body aches, decreased exercise tolerance over the past 5 days. EMS was notified and upon arrival the patient was found to be in distress with a pulse oximetry of 76% on room air as well as fever to 103 F. In the ER chest x-ray and was found to have bilateral pneumonia. Patient admitted to medical floor and initiated on pneumonia protocol as well as COVID-19 protocol. Patient reports being diagnosed with coronavirus 2 days ago before admission. 05/10- 05/17: follow inflammatory markers, consulted ID/pulmonary. patient on high flow O2 05/18/20; patient feels slightly better still hypoxic, requiring continuous high flow oxygen and BiPAP Respiratory team trying to wean 05/19/20; patient is severely hypoxemic requiring continuous BiPAP today, complains of generalized weakness Trying to wean off high flow oxygen, patient is in isolation 05/20/2020; patient remains on high flow oxygen/BiPAP/100% nonrebreather. Still is hypoxemic Has sinus tachycardia patient in mild distress Wean off high flow oxygen as tolerated, pulmonary critical following 05/21/20; patient is critically ill, on continuous BiPAP remains hypoxemic in mild distress. Patient has severe Covid Pneumonia with persistent hypoxemia and poor prognosis. 05/22/2020: Patient was intubated last night because of persistent hypoxemia. 05/23-06/15: Remains on ventilatory support, unable to wean off from the vent. 06/16/2020. Patient currently on mechanical ventilation with AC mode rate 30, tidal volume 500, FiO2 70% and PEEP of 16. Continue anticoagulation with Lovenox 110 milligrams subcu every 12 hours. Wean sedation of fentanyl/Versed as needed. Currently with IV steroids of Solu-Medrol 40 mg IV every 12 hours. Patient will likely need tracheostomy per pulmonary recommendations. Continue pressors to maintain MAP > 65. 06/17/2020. Patient currently on mechanical ventilation with AC mode rate 30, tidal volume 500, FiO2 65% and PEEP of 16. Continue anticoagulation with Lovenox 110 milligrams subcu every 12 hours. Wean sedation of fentanyl/Versed as needed. Currently with IV steroids of Solu-Medrol 40 mg IV every 12 hours. Patient will likely need tracheostomy per pulmonary recommendations. 06/18/2020. Patient currently on mechanical ventilation with AC mode rate 30, tidal volume 500, FiO2 70% and PEEP of 16. Continue Lovenox for anticoagulation and fentanyl/Versed for sedation. Wean steroids per pulmonary. CIWA protocol initiated for history of EtOH dependence 06/19/2020. Patient currently on mechanical ventilation with AC mode rate 30, tidal volume 500, FiO2 60% and PEEP of 16. Wean FiO2 as tolerated per protocol. Continue Lovenox for anticoagulation and fentanyl/Versed for sedation. Wean steroids per pulmonary. CIWA protocol initiated for history of EtOH dependence 06/20/2020. Patient currently on mechanical ventilation with AC mode rate 30, tidal volume 500, FiO2 60% and PEEP of 16. Wean FiO2 as tolerated, SBT per protocol. Continue Lovenox for anticoagulation and fentanyl/Versed for sedation. Wean steroids per pulmonary. Continue pressors to maintain MAP > 65 mmHg. Patient remains on ETT. Consider tracheostomy placement once oxygenation is better per pulmonary. CIWA protocol initiated for history of EtOH dependence. 06/21/2020. Patient with a small apical pneumothorax discovered yesterday. General surgery consulted and consider placing chest tube. Follow-up serial chest x-ray patient currently on mechanical ventilation with AC mode rate 30, tidal volume 500, FiO2 60% and PEEP of 16. Wean FiO2 as tolerated, SBT per protocol. Continue Lovenox for anticoagulation and fentanyl/Versed for sedation. Wean steroids per pulmonary. Continue pressors to maintain MAP > 65 mmHg. Patient remains on ETT. Consider tracheostomy placement once oxygenation is better per pulmonary. CIWA protocol initiated for history of EtOH dependence. 06/22. Status post right chest tube placement yesterday. Remains mechanically ventilated on pressors. Examination today shows slightly distended abdomen. KUB ordered. Awaiting stool guaiac. Plan to get a GI evaluation. 06/23. Has colonic distention on the x-ray. Discussed with GI-advised stool softeners for now and close monitoring. No indication for colonic decompression at this time. Guaiac test is positive. No emergent indication for endoscopy at this point as per GI. Continue to monitor hemoglobin. 06/24. Remains intubated. On pressors. GI following for positive guaiac stool and anemia, and colonic distention. 06/25. Repeat abdominal xray ordered. Remains on mechanical ventilation. 06/26. Abdominal xray - resolved colonic distension. Mechanically ventilated. 06/27. Plan for trach and PEG. 06/28: Awaiting trach and Peg. Some Bm REPORTED, will continue to monitor 06/29: Resume care, patient remains on ventilator support, waiting on trach and PEG placement. BM reported by the RN, continue to monitor. 06/30: Unable to wean off from vent, patient will need trach and PEG. Continue supportive care, tolerating tube feed. Monitor CBC and BMP 07/01: Continue mechanical ventilation, tube feeding as tolerated. Sedation as needed per mechanical ventilation protocol. Waiting on trach and PEG placement. 07/02: Continue current management, tube feeding, monitor CBC and BMP. Need tra ch and PEG-waiting on scheduling. Pulmonary critical care following. 07/03: wean off vent as tolerated. follow clinically. need trach and PEG 07/04: unable to wean. CT head ordered to assess for any changes but too unstable to do the test. need trach and PEG. 07/05: plan for trach/peg - GS following. off pressor - on midodrine. renal function stable. intubated, but alert and can follow minor commend. discussed with daughter by phone. 07/06/2020; Dr. Márquez discussed with patient's daughter about trach but the daughter needs time to think about it. Patient was intubated and alert, FiO2 40 %. History Interval history: Patient was seen and evaluated this morning Patient was intubated, FiO2 40% Patient was alert Hospitalist Physical - Physical exam Narrative exam: General appearance: Present: no distress, obese, intubated, alert - EENT Eyes: Present: PERRL ENT: Et tube in place - Neck Neck: Present: supple, - Respiratory Respiratory effort: on mechanical ventilation Respiratory: bilateral: diminished, rhonchi, CT tube in place - Cardiovascular Heart Sounds: Present: S1 & S2. Absent: rub, click - Extremities Extremities: pulses symmetrical, No edema Peripheral Pulses: within normal limits - Abdominal General gastrointestinal: Present: soft, non-tender, mild distended, normal bowel sounds Male genitourinary: Present: normal - Integumentary Integumentary: Present: clear, warm, dry - Musculoskeletal Musculoskeletal: generalized weakness - Psychiatric Psychiatric: Unable to assess - Neurologic Neurologic: Intubated but alert - Constitutional Vitals: Temp Pulse Resp BP Pulse Ox 98.3 F 106 H 19 115/75 100 07/06/20 08:00 07/06/20 11:15 07/06/20 11:15 07/06/20 11:15 07/06/20 11:15 General appearance: Present: no acute distress, other Results - Labs CBC & Chem 7: 07/06/20 06:52 07/06/20 06:52 Labs: Laboratory Last Values WBC 15.8 K/mm3 (4.5-11.0) H 07/06/20 06:52 RBC 3.17 M/mm3 (3.65-5.03) L 07/06/20 06:52 Hgb 10.4 gm/dl (11.8-15.2) L 07/06/20 06:52 Hct 31.5 % (35.5-45.6) L 07/06/20 06:52 MCV 99 fl (84-94) H 07/06/20 06:52 MCH 33 pg (28-32) H 07/06/20 06:52 MCHC 33 % (32-34) 07/06/20 06:52 RDW 17.0 % (13.2-15.2) H 07/06/20 06:52 Plt Count 333 K/mm3 (140-440) 07/06/20 06:52 Lymph % (Auto) 11.1 % (13.4-35.0) L 07/05/20 05:18 [place] % (Auto) 6.2 % (0.0-7.3) 07/05/20 05:18 Eos % (Auto) 0.2 % (0.0-4.3) 07/05/20 05:18 Baso % (Auto) 0.2 % (0.0-1.8) 07/05/20 05:18 Lymph # (Auto) 1.5 K/mm3 (1.2-5.4) 07/05/20 05:18 [place] # (Auto) 0.8 K/mm3 (0.0-0.8) 07/05/20 05:18 Eos # (Auto) 0.0 K/mm3 (0.0-0.4) 07/05/20 05:18 Baso # (Auto) 0.0 K/mm3 (0.0-0.1) 07/05/20 05:18 Add Manual Diff Complete 07/01/20 06:41 Total Counted 100 07/01/20 06:41 Seg Neutrophils % 82.3 % (40.0-70.0) H 07/05/20 05:18 Seg Neuts % (Manual) 82.0 % (40.0-70.0) H 07/01/20 06:41 Band Neutrophils % 2.0 % 07/01/20 06:41 Lymphocytes % (Manual) 7.0 % (13.4-35.0) L 07/01/20 06:41 Reactive Lymphs % (Man) 0 % 06/15/20 Unknown Monocytes % (Manual) 6.0 % (0.0-7.3) 07/01/20 06:41 Eosinophils % (Manual) 3.0 % (0.0-4.3) 07/01/20 06:41 Basophils % (Manual) 0 % (0.0-1.8) 06/15/20 Unknown Metamyelocytes % 1.0 % 06/28/20 06:35 Myelocytes % 0 % 06/15/20 Unknown Promyelocytes % 0 % 06/15/20 Unknown Blast Cells % 0 % 06/15/20 Unknown Nucleated RBC % 1.0 % (0.0-0.9) H 07/01/20 06:41 Seg Neutrophils # 10.9 K/mm3 (1.8-7.7) H 07/05/20 05:18 Seg Neutrophils # Man 14.8 K/mm3 (1.8-7.7) H 07/01/20 06:41 Band Neutrophils # 0.4 K/mm3 07/01/20 06:41 Lymphocytes # (Manual) 1.3 K/mm3 (1.2-5.4) 07/01/20 06:41 Abs React Lymphs (Man) 0.0 K/mm3 07/01/20 06:41 Monocytes # (Manual) 1.1 K/mm3 (0.0-0.8) H 07/01/20 06:41 Eosinophils # (Manual) 0.5 K/mm3 (0.0-0.4) H 07/01/20 06:41 Basophils # (Manual) 0.0 K/mm3 (0.0-0.1) 07/01/20 06:41 Metamyelocytes # 0.0 K/mm3 07/01/20 06:41 Myelocytes # 0.0 K/mm3 07/01/20 06:41 Promyelocytes # 0.0 K/mm3 07/01/20 06:41 Blast Cells # 0.0 K/mm3 07/01/20 06:41 WBC Morphology Not Reportable 07/01/20 06:41 Hypersegmented Neuts Not Reportable 07/01/20 06:41 Hyposegmented Neuts Not Reportable 07/01/20 06:41 Hypogranular Neuts Not Reportable 07/01/20 06:41 Smudge Cells Not Reportable 07/01/20 06:41 Toxic Granulation Not Reportable 07/01/20 06:41 Toxic Vacuolation Not Reportable 07/01/20 06:41 Dohle Bodies Not Reportable 07/01/20 06:41 Pelger-Huet Anomaly Not Reportable 07/01/20 06:41 Jason Rods Not Reportable 07/01/20 06:41 Platelet Estimate Consistent w auto 07/01/20 06:41 Clumped Platelets Not Reportable 07/01/20 06:41 Plt Clumps, EDTA Not Reportable 07/01/20 06:41 Large Platelets Not Reportable 07/01/20 06:41 Giant Platelets Not Reportable 07/01/20 06:41 Platelet Satelliting Not Reportable 07/01/20 06:41 Plt Morphology Comment Not Reportable 07/01/20 06:41 RBC Morphology Not Reportable 07/01/20 06:41 Dimorphic RBCs Not Reportable 07/01/20 06:41 Polychromasia Few 07/01/20 06:41 Hypochromasia 1+ 07/01/20 06:41 Poikilocytosis Not Reportable 07/01/20 06:41 Anisocytosis Few 07/01/20 06:41 Microcytosis Not Reportable 07/01/20 06:41 Macrocytosis Not Reportable 07/01/20 06:41 Spherocytes Rare 07/01/20 06:41 Pappenheimer Bodies Not Reportable 07/01/20 06:41 Sickle Cells Not Reportable 07/01/20 06:41 Target Cells Few 07/01/20 06:41 Stomatocytes Few 06/14/20 07:15 Tear Drop Cells Not Reportable 07/01/20 06:41 Ovalocytes Not Reportable 07/01/20 06:41 Helmet Cells Few 07/01/20 06:41 Sinclair-Joaquin Bodies Not Reportable 07/01/20 06:41 [place] Rings Not Reportable 07/01/20 06:41 [place] Cells Not Reportable 07/01/20 06:41 Bite Cells Not Reportable 07/01/20 06:41 Crenated Cell Not Reportable 07/01/20 06:41 Elliptocytes Not Reportable 07/01/20 06:41 Acanthocytes (Spur) Not Reportable 07/01/20 06:41 Rouleaux Not Reportable 07/01/20 06:41 Hemoglobin C Crystals Not Reportable 07/01/20 06:41 Schistocytes Rare 07/01/20 06:41 Malaria parasites Not Reportable 07/01/20 06:41 Josue Bodies Not Reportable 07/01/20 06:41 Hem Pathologist Commnt No 07/01/20 06:41 PT 11.8 Sec. (12.2-14.9) L 06/22/20 14:29 INR 0.88 (0.87-1.13) 06/22/20 14:29 APTT 23.5 Sec. (24.2-36.6) L 06/22/20 14:29 D-Dimer 1887.82 ng/mlDDU (0-234) H 05/20/20 08:16 Heparin Anti-Xa Level 0.37 U.I./ml (0.3-0.7) 07/02/20 16:08 ABG pH 7.519 (7.320-7.450) H 07/05/20 05:25 POC ABG pCO2 47.1 mmHg (32.0-48.0) 07/05/20 05:25 ABG pCO2 69.8 mm Hg 06/22/20 03:50 POC ABG pO2 198.6 mmHg (83-108) H 07/05/20 05:25 ABG pO2 89.6 mm Hg (80.0-90.0) 06/22/20 03:50 POC ABG HCO3 37.5 07/05/20 05:25 ABG HCO3 47.5 mmol/L (20.0-26.0) H 06/22/20 03:50 ABG O2 Saturation 97.1 % (95.0-99.0) 06/22/20 03:50 ABG O2 Content 6.0 (0.0-44) 06/22/20 03:50 POC ABG Base Excess 13.2 07/05/20 05:25 ABG Base Excess 22.0 mmol/L (-2.0-3.0) H 06/22/20 03:50 ABG Hemoglobin 10.3 (12.0-17.5) L 07/05/20 05:25 ABG Oxyhemoglobin 98.7 (94-98) H 07/05/20 05:25 ABG Carboxyhemoglobin 2.6 % (0.0-5.0) 06/22/20 03:50 ABG Methemoglobin 0.3 (0.0-1.5) 07/05/20 05:25 ABG Sodium 133.6 mmol/L (136.0-145.0) L 07/05/20 05:25 ABG Potassium 3.3 mmol/L (3.40-4.50) L 07/05/20 05:25 ABG Chloride 93.0 mmol/L (98-107) L 07/05/20 05:25 ABG Glucose 175 mg/dL (65-95) H 07/05/20 05:25 Oxyhemoglobin 94.1 % (95.0-99.0) L 06/22/20 03:50 Carboxyhemoglobin 0.8 (0.5-1.5) 07/05/20 05:25 FiO2 40 07/05/20 05:25 Sodium 135 mmol/L (137-145) L 07/06/20 06:52 Potassium 3.4 mmol/L (3.6-5.0) L 07/06/20 06:52 Chloride 91.9 mmol/L (98-107) L 07/06/20 06:52 Carbon Dioxide 38 mmol/L (22-30) H 07/06/20 06:52 Anion Gap 9 mmol/L 07/06/20 06:52 BUN 15 mg/dL (9-20) 07/06/20 06:52 Creatinine 0.3 mg/dL (0.8-1.3) L 07/06/20 06:52 Estimated GFR > 60 ml/min 07/06/20 06:52 BUN/Creatinine Ratio 50 % 07/06/20 06:52 Glucose 189 mg/dL (75-100) H 07/06/20 06:52 POC Glucose 165 mg/dL (70-105) H 07/06/20 05:25 Lactic Acid 1.80 mmol/L (0.7-2.0) 05/09/20 Unknown Calcium 9.4 mg/dL (8.4-10.2) 07/06/20 06:52 Phosphorus 3.10 mg/dL (2.5-4.5) 06/15/20 04:00 Magnesium 1.70 mg/dL (1.7-2.3) 06/30/20 07:00 Ferritin 1496.0 ng/mL (30.0-300.0) H 06/14/20 11:50 Total Bilirubin 0.60 mg/dL (0.1-1.2) 06/30/20 07:00 Direct Bilirubin 0.6 mg/dL (0-0.2) H 05/11/20 07:30 Indirect Bilirubin 0.9 mg/dL 05/11/20 07:30 AST 21 units/L (5-40) 06/30/20 07:00 ALT 30 units/L (7-56) 06/30/20 07:00 Alkaline Phosphatase 81 units/L (35-129) 06/30/20 07:00 Lactate Dehydrogenase 705 units/L (91-180) H 05/20/20 08:16 C-Reactive Protein 3.10 mg/dL (0.00-1.30) H 05/20/20 08:16 Total Protein 6.3 g/dL (6.3-8.2) 06/30/20 07:00 Albumin 2.8 g/dL (3.9-5) L 06/30/20 07:00 Albumin/Globulin Ratio 0.8 % 06/30/20 07:00 Triglycerides 452 mg/dL (2-149) H 06/30/20 07:00 Lipase 86 units/L (13-60) H 06/29/20 09:36 Procalcitonin 0.94 ng/mL (<0.15) 06/14/20 11:50 Arterial Blood Glucose 175 mg/dL (65-95) H 07/05/20 05:25 Arterial Blood Ionized Calcium 4.7 mg/dL (4.6-5.3) 07/05/20 05:25 Urine Color Fauzia (Yellow) 05/10/20 Unknown Urine Turbidity Clear (Clear) 05/10/20 Unknown Urine pH 5.0 (5.0-7.0) 05/10/20 Unknown Ur Specific [place] 1.019 (1.003-1.030) 05/10/20 Unknown Urine Protein 100 mg/dl mg/dL (Negative) 05/10/20 Unknown Urine Glucose (UA) Neg mg/dL (Negative) 05/10/20 Unknown Urine Ketones Neg mg/dL (Negative) 05/10/20 Unknown Urine Blood Lg (Negative) 05/10/20 Unknown Urine Nitrite Neg (Negative) 05/10/20 Unknown Urine Bilirubin Neg (Negative) 05/10/20 Unknown Urine Urobilinogen 2.0 mg/dL (<2.0) 05/10/20 Unknown Ur Leukocyte Esterase Neg (Negative) 05/10/20 Unknown Urine WBC (Auto) 11.0 /HPF (0.0-6.0) H 05/10/20 Unknown Urine RBC (Auto) 2.0 /HPF (0.0-6.0) 05/10/20 Unknown U Epithel Cells (Auto) 1.0 /HPF (0-13.0) 05/10/20 Unknown Urine Bacteria (Auto) 1+ /HPF (Negative) 05/10/20 Unknown Urine Mucus Few /HPF 05/10/20 Unknown Plasma/Serum Alcohol < 0.01 % (0-0.07) 05/09/20 14:20 Coronavirus (PCR) Negative (Negative) 06/30/20 10:28 SARS-CoV-2 IgG Ab Reactive (NonReactive) A 05/11/20 07:30 Blood Type B POSITIVE 06/21/20 14:18 Antibody Screen Negative 06/21/20 14:18 Crossmatch See Detail 06/21/20 14:18 - Diagnostic Impressions Diagnostic Impressions: Echocardiogram 05/20/20 13:02 Transthoracic Echocardiogram Indication: CHF BP: 97/73 Conclusions *The study quality is technically very difficult and limited. *The left ventricular chamber size, wall thickness and systolic function are within normal limits. There are no wall motion abnormalities observed. Ejection fraction is normal. *The estimated ejection fraction is 60-65%. *The pericardium appears normal. Findings Procedure Info: The study quality is technically difficult. Left Ventricle: The left ventricular chamber size, wall thickness and systolic function are within normal limits. There are no wall motion abnormalities observed. Ejection fraction is normal. The estimated ejection fraction is 60-65%. Abnormal left ventricular diastolic filling is observed, consistent with impaired relaxation. Left Atrium: The left atrium is normal in size with no visual thrombus identified. Right Ventricle: The right ventricle is not well visualized. Right Atrium: The right atrium is not well visualized. Aortic Valve: The aortic valve is trileaflet. The leaflets are thin with normal excursion. There is no aortic stenosis or regurgitation present. Mitral Valve: The mitral valve appears normal in structure and function. Tricuspid Valve: The tricuspid valve appears normal in structure and function. Unable to estimate the right ventricular systolic pressure. Pulmonic Valve: The pulmonic valve is not well visualized. There is no evidence of pulmonic regurgitation. There is no pulmonic stenosis. Pericardium: The pericardium appears normal. Pulmonary Artery: The main pulmonary artery is not well visualized. Venous: The inferior vena cava appears normal in size. Measurements Chambers 2D Name Value Normal Range IVSd (2D) 0.83 cm (0.6 - 1.1) LVPWd (2D) 0.83 cm (0.6 - 1.1) LVIDd (2D) 3.88 cm (3.7 - 5.6) LVIDs (2D) 2.46 cm (2 - 3.8) LV FS (2D) 36.52 % - EF Teichholz (2D) 66.97 % - Ao root diameter (2D) 3.47 cm (2 - 3.7) Volumes/Mass Name Value Normal Range LA ESV SP 4CH (A/L) 22.4 ml - LA ESV SP 2CH (A/L) 22.89 ml - LA ESV BP (A/L) 23.06 ml - LA ESV SP 4CH (MOD) 21.09 ml - LA ESV SP 2CH (MOD) 22.44 ml - Diastolic/Systolic Function Name Value Normal Range MV E-wave Vmax 0.48 m/sec - MV deceleration time 156.3 msec - MV A-wave Vmax 0.59 m/sec - MV E:A ratio 0.81 ratio - Aortic Valve Name Value Normal Range AV Vmax 0.97 m/sec - AV VTI 14.49 cm - AV peak gradient 3.73 mmHg - AV mean gradient 1.89 mmHg - LVOT diameter 2.09 cm - LVOT Vmax 0.72 m/sec - LVOT VTI 10.21 cm - LVOT peak gradient 2.05 mmHg - LVOT mean gradient 1.03 mmHg - SV LVOT 35.17 ml - INNA (continuity Vmax) 2.55 cm2 - INNA (continuity VTI) 2.43 cm2 - Tricuspid Valve Name Value Normal Range TV E-wave Vmax 0.37 m/sec - Pulmonic Valve/Qp:Qs Name Value Normal Range PV Vmax 0.72 m/sec - PV peak gradient 2.06 mmHg - RVOT Vmax 0.85 m/sec - RVOT VTI 9.89 cm - RVOT peak gradient 2.9 mmHg - PV acceleration time 72.31 msec - [place]/IV: Voiding Method Condom Catheter IV Catheter Type [Right Upper PICC Line arm] IV Catheter Type [Right CVL Internal Jugular] IV Catheter Type [Right Peripheral IV Forearm] IV Catheter Type [Left Forearm Peripheral IV ] IV Catheter Type [Left Wrist] INT / Saline Lock IV Catheter Type [Right Hand] INT / Saline Lock IV Catheter Type [Left Hand] INT / Saline Lock IV Catheter Type [Left Peripheral IV Antecubital] Active Medications - Current Medications Current Medications: Generic Name Dose Route Start Last Admin Trade Name Freq PRN Reason Stop Dose Admin Acetaminophen 650 mg 06/14/20 10:07 06/21/20 20:21 Tylenol FEEDTUBE 650 mg Q4H PRN Administration Pain, Mild (1-3) Alprazolam 0.25 mg 05/20/20 17:53 07/03/20 10:33 Alprazolam 0.25 Mg Tab PO 0.25 mg Q8H PRN Administration Anxiety Lipase/Protease/Amylase 1 each 05/22/20 13:01 Lipase 10,500/Protease 25,000/Amylase 43,750 (Units) Dr Newell FEEDTUBE PRN PRN For Clogged Feeding Tube Bisacodyl 10 mg 06/26/20 22:00 07/06/20 10:31 Bisacodyl 10 Mg Rect Supp AL 10 mg BID DESIRE Administration Docusate Sodium 100 mg 05/28/20 14:00 07/06/20 10:31 Docusate Sodium 100 Mg/10 Ml Oral Liqd PO 100 mg BID DESIRE Administration Enoxaparin Sodium 110 mg 07/03/20 22:00 07/06/20 10:32 Enoxaparin 120 Mg/0.8 Ml Inj SUB-Q 110 mg Q12HR DESIRE Administration Protocol Fentanyl 50 mcg 06/22/20 09:48 Fentanyl 100 Mcg/2 Ml Inj IV Q10MIN PRN ANALGESIA Folic Acid 1 mg 05/09/20 15:36 07/06/20 10:32 Folvite PO 1 mg QDAY DESIRE Administration Hydrophilic Ointment 1 applic 05/21/20 20:33 Lip Therapy Vaseline TP Q2HR PRN Dry Lips Midazolam HCl 100 mg/ Sodium 100 mls @ 2 mls/hr 06/02/20 14:00 07/06/20 03:40 Chloride IV 3 mg/hr TITR DESIRE 3 mls/hr Titration Protocol 2 MG/HR Norepinephrine 4 mg in 250 mls @ 7.5 mls/hr 06/04/20 16:00 07/06/20 05:50 Levophed Drip 4 Mg/Ns 250 Ml IV 2 mcg/min TITR DESIRE 7.5 mls/hr Titration Protocol 2 MCG/MIN Fentanyl Citrate 2,000 mcg in 100 mls @ 5.32 mls/hr 06/09/20 14:00 07/06/20 05:49 Fentanyl Drip Premix IV 3 mcg/kg/hr TITR DESIRE 15.96 mls/hr Administration Protocol 1 MCG/KG/HR Vasopressin 20 unit/ Sodium 101 mls @ 9.09 mls/hr 06/09/20 18:00 Chloride IV TITR DESIRE Protocol 0.03 UNITS/MIN Dexmedetomidine HCl 1,000 mcg/ 260 mls @ 5.668 mls/hr 07/05/20 08:30 07/06/20 06:14 Sodium Chloride IV 1.2 mcg/kg/hr TITRATE DESIRE 34.008 mls/hr Administration Protocol 0.2 MCG/KG/HR Insulin Glargine 30 units 06/30/20 22:00 07/05/20 22:00 Insulin Glargine 100 Units/Ml SUB-Q 30 units QHS DESIRE Administration Insulin Glargine 5 units 07/05/20 14:00 07/06/20 10:31 Insulin Glargine 100 Units/Ml SUB-Q 5 units DAILY DESIRE Administration Insulin Human Lispro 0 unit 05/29/20 14:00 07/06/20 05:51 Insulin Lispro 100 Unit/Ml Vial 3 Ml SUB-Q 3 unit Q6H DESIRE Administration Protocol Lansoprazole 30 mg 06/28/20 10:00 07/06/20 10:31 Lansoprazole 30 Mg Solutab FEEDTUBE 30 mg QDAY DESIRE Administration Lorazepam 1 mg 07/04/20 01:10 07/06/20 01:14 Lorazepam 2 Mg/Ml Vial IV 1 mg Q1HR PRN Administration agitation Methylprednisolone Sodium Succinate 40 mg 05/20/20 18:00 07/06/20 06:26 Methylprednisolone Sod Succinate 40 Mg/1 Ml Inj IV 40 mg Q12H DESIRE Administration Metoprolol Tartrate 5 mg 07/02/20 17:17 07/03/20 09:03 Metoprolol Tartrate 5 Mg/5 Ml Inj IV 5 mg Q6HR PRN Administration Tachyarrhythmias Midodrine 10 mg 06/30/20 16:00 07/06/20 11:24 Midodrine 5 Mg Tab PO 10 mg TID@0800,1200,1600 DESIRE Administration Multi-Ingred Cream/Lotion/Oil/Oint 1 applic 05/21/20 20:33 Mineral Oil/Petrolatum, White Ophth Oint 3.5 Gm OU Q4HR PRN Dry Eye(s) Phenobarbital 32.4 mg 07/04/20 22:00 07/06/20 10:32 Phenobarbital 32.4 Mg Tab PO 32.4 mg BID DESIRE Administration Quetiapine Fumarate 100 mg 07/02/20 23:15 07/06/20 11:23 Quetiapine 100 Mg Tab PO 100 mg TID DESIRE Administration Quetiapine Fumarate 200 mg 07/02/20 23:00 07/06/20 11:23 Quetiapine 200 Mg Tab PO 200 mg TID DESIRE Administration Senna 17.2 mg 06/07/20 10:00 07/06/20 10:31 Sennosides 8.6 Mg Tab PO 17.2 mg BID DESIRE Administration Simple Syrup 15 ml 05/22/20 13:01 Simple Syrup 15 Ml FEEDTUBE PRN PRN Hypoglycemia Simple Syrup 30 ml 05/22/20 13:01 Simple Syrup 15 Ml FEEDTUBE PRN PRN Hypoglycemia Sodium Bicarbonate 325 mg 05/22/20 13:01 Sodium Bicarbonate 325 Mg Tab FEEDTUBE PRN PRN For Clogged Feeding Tube Sodium Chloride 10 ml 05/09/20 22:00 07/06/20 11:23 Sodium Chloride Flush Syringe 10 Ml IV 10 ml BID DESIRE Administration Nutrition/Malnutrition Assess - Dietary Evaluation Nutrition/Malnutrition Findings: Nutrition Notes Start: 05/17/20 14:10 Freq: Status: Active Protocol: Document 06/30/20 11:31 LM (Rec: 06/30/20 11:33 LM [id number]) Nutrition Notes Initial or Follow up Reassessment Current Diagnosis Sepsis,Respiratory Failure Other Pertinent Diagnosis Bilat pneu, COVID-19 (+), EtOH dependence Current Diet Vital HP at 65 ml/hr (goal rate) Labs/Tests BG 260 Cr 0.3 Pertinent Medications Propofol Solumedrol Humalog Height 6 ft Weight 108 kg [place] Body Weight (kg) 80.90 BMI 32.3 Weight Status Obese Subjective/Other Information Observed TF running at goal rate. Percent of energy/protein needs met: 85%/84% Burn Absent Trauma Absent GI Symptoms None Current % PO Negligible Minimum of two criteria No physical signs of malnutrition #1 Nutrition Diagnosis Inadequate oral intake Diagnosis Progress(for reassessment Continues documentation) Is patient on ventilator? Yes Is Patient Ambulatory and/or Out of Bed No REE-([facility]-confined to bed) 2371.200 Kcal/Kg value to use for calculation 17 Approximate Energy Requirements Using 1836 kcal/Kg Calculation Used for Recommendations Kcal/kg Additional Notes Pro needs >2g/kg IBW: at least 162g/day Fluid needs 1ml/kcal Nutrition Intervention Change Diet Order: Continue TF Nutrition Support: Vital HP at 65ml/hr with 50ml water flush q4h. Kcal 1,560 Protein (gm) 136 Fluid (mL) 1,304 Goal #1 TF tolerance Goal #2 TF (at goal rate) to meet at least 75% energy and pro needs Anticipated Discharge Needs: Unable to identify at this time Follow-Up By: 07/07/20 Additional Comments F/U TF tolerance
[2020-07-06] MEDS: MIDAZOLAM 100 MG in SODIUM CHLORIDE 0.9% 80 ML IV SCH (13:15)
--- NOTE | 2020-07-06 14:36 | Progress Note ---
Assessment and Plan Acute hypoxemic respiratory failure due to COVID-19 Severe Sepsis Bilateral pneumonia Acute kidney injury (SEN) with acute tubular necrosis (ATN) Alcohol dependence Elevated liver function tests (Patient appears alert and follows simple commands albeit on sedation. I have explained to him the risk of sub-glottic stenosis but in partiocular the fact that his course as with many COVID patients appears to be frought with in termittent steps backwards. Considering the duration of intubation and the above i have strongly recommended he get a tracheostomy. I have also explained this to his daughter Tracie and also explained that with him being as sick as he is and on sedation his comprehension is suspect) - will reach out to daughter in 48 hours as requested - awaiting tracheostomy (COVID repeat negative) - continue to wean supplemental oxygen for target O2 sat's > 92% acutely - resume Daily SAT's and SBT assessment as tolerated - continue care as below otherwise; - continue Seroquel at 300 mg po tid - continue Precedex - prn 12 lead EKG to monitor QT - continue midodrine re: hypotension - keep peep at 8 - continue bid protonix - continue bowel regimen - continue to wean Levophed for target MAP > 65 mmHg - metoprolol 5 mg IV q6h prn pulse > 130/min - tracheostomy placement once oxygenation better / more hemodynamically stable - he will need a tracheostomy once numbers better - VAP bundle addressed - continue lung protective strategies - continue bronchodilators with pulmonary hygiene per RT - wean per pulmonary driven protocols otherwise - accuchecks with glycemic control per SSI (While critically ill target blood glucose of 140-180 mg/dL; avoid hypoglycemia) - sedation prn for target RASS -1 to -2 - continue enteral nutritional support at goal rate as tolerated - continue airborne and contact isolation - follow repeat COVID-19 testing - continue Zinc & Vit C supplementaion - continue systemic steroids for Asthma / severe COVID infection - Prone positioning as tolerated - continue empiric full dose anticoagulation re: elevated d-dimers / hypercoagulable state - NOT a candidate for COVID convalescent plasma - continue systemic steroids X >/= 10 days - completed remdesivir dosing (total 5 days) - empiric AB's coverage per ID rec's - accuchecks with glycemic control per SSI (While critically ill target blood glucose of 140-180 mg/dL; avoid hypoglycemia) - avoid nephrotoxins, renally dose all medications - continue to avoid benzodiazepine's, reduce the possibility of delirium - continue wound care per RN / WCN - prn analgesia per CPOT score - Maintenance of sleep-wake cycle, avoid delirium - continue to avoid benzodiazepine's, reduce the possibility of delirium - aspiration precautions - G.I. & VTE prophylaxis - PT/OT/ROM exercises - continue mobility protocols for pressure ulcer prophylaxis - Monitor hemodynamics closely - continue other care per attending / other consultants - discharge planning ongoing concurrently .... Re-evaluate in am & prn CONDITION: CRITICAL PROGNOSIS: GUARDED CODE STATUS: FULL CODE The high probability of a clinically significant, sudden or life-threatening deterioration of the [respiratory, cardiovascular, hematologic & neurologic] system(s) required my full and direct attention, intervention and personal management. The aggregate critical care time was [32] minutes without overlap. Time includes spent on; [x] Data Review and interpretation [x] Patient assessment and monitoring of vital signs [x] Documentation [x] Medication orders and management Subjective Date of service: 07/06/20 Principal diagnosis: Ac hypoxemic resp failure; COVID-19; Severe Sepsis; Shaggy PNA; Alcohol Abuse Interval history: Patient is seen today for: Acute hypoxemic respiratory failure due to COVID-19; Severe Sepsis; Bilateral pneumonia; Alcohol dependence; Elevated liver function tests Seen and examined at bedside; 24hour events reviewed; nursing and respiratory care staff consulted; no adverse overnight events reported to me; resting in bed; remains on MVS; surgery discussed with his daughter and she is apparently not wanting to decide on a tracheostomy yet; No N/V/F/C Objective Vital Signs - 12hr 07/06/20 07/06/20 07/06/20 02:45 03:00 03:15 Temperature Pulse Rate 74 71 72 Pulse Rate [ From Monitor] Respiratory 30 H 30 H 30 H Rate Blood Pressure 68/43 77/50 81/49 O2 Sat by Pulse 100 100 100 Oximetry 07/06/20 07/06/20 07/06/20 03:30 03:44 03:45 Temperature 98.2 F Pulse Rate 68 64 Pulse Rate [ From Monitor] Respiratory 30 H 30 H Rate Blood Pressure 69/42 159/88 O2 Sat by Pulse 100 100 Oximetry 07/06/20 07/06/20 07/06/20 03:49 04:00 04:01 Temperature Pulse Rate 70 72 70 Pulse Rate [ 70 From Monitor] Respiratory 30 H 30 H Rate Blood Pressure 159/88 132/78 O2 Sat by Pulse 100 97 99 Oximetry 07/06/20 07/06/20 07/06/20 04:15 04:30 04:45 Temperature Pulse Rate 71 70 72 Pulse Rate [ From Monitor] Respiratory 30 H 30 H 30 H Rate Blood Pressure 133/78 131/77 126/72 O2 Sat by Pulse 97 100 98 Oximetry 07/06/20 07/06/20 07/06/20 05:00 05:15 05:30 Temperature Pulse Rate 70 69 69 Pulse Rate [ From Monitor] Respiratory 30 H 30 H 30 H Rate Blood Pressure 122/71 119/70 119/69 O2 Sat by Pulse 98 98 98 Oximetry 07/06/20 07/06/20 07/06/20 05:45 06:01 06:15 Temperature Pulse Rate 69 100 H 97 H Pulse Rate [ From Monitor] Respiratory 30 H 18 30 H Rate Blood Pressure 121/68 121/68 118/73 O2 Sat by Pulse 97 92 97 Oximetry 07/06/20 07/06/20 07/06/20 06:31 06:45 07:00 Temperature Pulse Rate 122 H 119 H 115 H Pulse Rate [ From Monitor] Respiratory 26 H 22 28 H Rate Blood Pressure 121/81 132/70 126/81 O2 Sat by Pulse 100 96 95 Oximetry 07/06/20 07/06/20 07/06/20 07:15 07:30 07:45 Temperature Pulse Rate 106 H 103 H 102 H Pulse Rate [ From Monitor] Respiratory 21 21 20 Rate Blood Pressure 126/77 135/77 135/75 O2 Sat by Pulse 97 99 98 Oximetry 07/06/20 07/06/20 07/06/20 08:00 08:15 08:30 Temperature 98.3 F Pulse Rate 104 H 103 H 102 H Pulse Rate [ From Monitor] Respiratory 25 H 24 18 Rate Blood Pressure 132/77 129/79 138/71 O2 Sat by Pulse 100 100 100 Oximetry 07/06/20 07/06/20 07/06/20 08:41 08:45 09:01 Temperature Pulse Rate 105 H 104 H 99 H Pulse Rate [ From Monitor] Respiratory 21 18 Rate Blood Pressure 138/71 135/87 132/73 O2 Sat by Pulse 99 100 100 Oximetry 07/06/20 07/06/2007/06/20 09:15 09:30 09:45 Temperature Pulse Rate 105 H 107 H 104 H Pulse Rate [ From Monitor] Respiratory 22 25 H 22 Rate Blood Pressure 125/79 134/77 132/78 O2 Sat by Pulse 98 100 100 Oximetry 07/06/20 07/06/20 07/06/20 10:00 10:15 10:30 Temperature Pulse Rate 107 H 105 H 106 H Pulse Rate [ From Monitor] Respiratory 19 15 20 Rate Blood Pressure 128/77 127/78 119/74 O2 Sat by Pulse 100 100 100 Oximetry 07/06/20 07/06/20 07/06/20 10:45 11:00 11:15 Temperature Pulse Rate 108 H 103 H 106 H Pulse Rate [ From Monitor] Respiratory 18 18 19 Rate Blood Pressure 119/74 118/66 115/75 O2 Sat by Pulse 100 100 100 Oximetry 07/06/20 07/06/20 07/06/20 11:30 11:45 12:00 Temperature Pulse Rate 110 H 110 H 121 H Pulse Rate [ From Monitor] Respiratory 23 21 19 Rate Blood Pressure 113/77 126/78 116/65 O2 Sat by Pulse 100 99 96 Oximetry 07/06/20 07/06/20 07/06/20 12:13 12:15 12:30 Temperature Pulse Rate 117 H 113 H 115 H Pulse Rate [ From Monitor] Respiratory 19 16 Rate Blood Pressure 116/65 113/65 107/73 O2 Sat by Pulse 98 95 96 Oximetry 07/06/20 07/06/20 12:45 13:00 Temperature Pulse Rate 110 H 106 H Pulse Rate [ From Monitor] Respiratory 18 22 Rate Blood Pressure 109/71 101/71 O2 Sat by Pulse 96 95 Oximetry Constitutional: no acute distress, other (middle aged obese male with mildly increased respiratory effort at rest on MVS) Eyes: non-icteric ENT: oropharynx moist, other (ETT 24 cm CHILO) Neck: supple, no JVD Effort: mildly labored Ascultation: Bilateral: diminished breath sounds, rhonchi (scant), other (right chest tube) Percussion: Bilateral: not dull Cardiovascular: regular rate and rhythm, other (No R/M) Gastrointestinal: normoactive bowel sounds, soft, non-tender, other (distended and firm) Integumentary: normal Extremities: no cyanosis, no edema, pulses normal, no ischemia or petechiae Neurologic: non-focal exam (non focal grossly; weak), pupils equal and round, CN II-XII normal Psychiatric: mood appropriate, affect normal CBC and BMP: 07/08/20 04:58 07/08/20 04:58 ABG, PT/INR, D-dimer: ABG ABG pH 7.519 (7.320-7.450) H 07/05/20 05:25 POC ABG pCO2 47.1 mmHg (32.0-48.0) 07/05/20 05:25 ABG pCO2 69.8 mm Hg 06/22/20 03:50 POC ABG pO2 198.6 mmHg (83-108) H 07/05/20 05:25 ABG pO2 89.6 mm Hg (80.0-90.0) 06/22/20 03:50 POC ABG HCO3 37.5 07/05/20 05:25 ABG O2 Saturation 97.1 % (95.0-99.0) 06/22/20 03:50 PT/INR, D-dimer PT 11.8 Sec. (12.2-14.9) L 06/22/20 14:29 INR 0.88 (0.87-1.13) 06/22/20 14:29 D-Dimer 1887.82 ng/mlDDU (0-234) H 05/20/20 08:16 Abnormal lab findings: Abnormal Labs 05/09/20 05/09/20 05/09/20 12:59 12:59 12:59 WBC 11.8 H RBC Hgb Hct MCV 96 H MCH 34 H MCHC 35 H RDW Lymph % (Auto) 6.9 L Lymph # (Auto) 0.8 L [place] # (Auto) Baso # (Auto) Seg Neutrophils % 87.5 H Seg Neuts % (Manual) Lymphocytes % (Manual) Nucleated RBC % Seg Neutrophils # 10.3 H Seg Neutrophils # Man Lymphocytes # (Manual) Monocytes # (Manual) Eosinophils # (Manual) PT INR APTT D-Dimer Heparin Anti-Xa Level ABG pH POC ABG pCO2 POC ABG pO2 ABG pO2 ABG HCO3 ABG O2 Saturation ABG Base Excess ABG Hemoglobin ABG Oxyhemoglobin ABG Sodium ABG Potassium ABG Chloride ABG Glucose Oxyhemoglobin Carboxyhemoglobin Sodium 130 L Potassium 3.5 L Chloride 86.4 L Carbon Dioxide BUN 33 H Creatinine 2.3 H Glucose 156 H POC Glucose Lactic Acid Calcium Magnesium Ferritin Total Bilirubin 3.40 H Direct Bilirubin 1.7 H AST 385 H ALT 134 H Alkaline Phosphatase Lactate Dehydrogenase C-Reactive Protein Total Protein Albumin 3.0 L Triglycerides Lipase Arterial Blood Glucose Arterial Blood Ionized Calcium Urine WBC (Auto) Coronavirus (PCR) SARS-CoV-2 IgG Ab Crossmatch 05/09/20 05/09/20 05/09/20 12:59 12:59 12:59 WBC RBC Hgb Hct MCV MCH MCHC RDW Lymph % (Auto) Lymph # (Auto) [place] # (Auto) Baso # (Auto) Seg Neutrophils % Seg Neuts % (Manual) Lymphocytes % (Manual) Nucleated RBC % Seg Neutrophils # Seg Neutrophils # Man Lymphocytes # (Manual) Monocytes # (Manual) Eosinophils # (Manual) PT INR APTT D-Dimer 3242.51 H Heparin Anti-Xa Level ABG pH POC ABG pCO2 POC ABG pO2 ABG pO2 ABG HCO3 ABG O2 Saturation ABG Base Excess ABG Hemoglobin ABG Oxyhemoglobin ABG Sodium ABG Potassium ABG Chloride ABG Glucose Oxyhemoglobin Carboxyhemoglobin Sodium Potassium Chloride Carbon Dioxide BUN Creatinine Glucose 158 H POC Glucose Lactic Acid 3.50 H* Calcium Magnesium Ferritin Total Bilirubin Direct Bilirubin AST ALT Alkaline Phosphatase Lactate Dehydrogenase 2166 H C-Reactive Protein 39.00 H Total Protein Albumin Triglycerides Lipase Arterial Blood Glucose Arterial Blood Ionized Calcium Urine WBC (Auto) Coronavirus (PCR) SARS-CoV-2 IgG Ab Crossmatch 05/09/20 05/09/20 05/09/20 12:59 14:20 14:20 WBC RBC Hgb Hct MCV MCH MCHC RDW Lymph % (Auto) Lymph # (Auto) [place] # (Auto) Baso # (Auto) Seg Neutrophils % Seg Neuts % (Manual) Lymphocytes % (Manual) Nucleated RBC % Seg Neutrophils # Seg Neutrophils # Man Lymphocytes # (Manual) Monocytes # (Manual) Eosinophils # (Manual) PT INR APTT D-Dimer 2861.78 H Heparin Anti-Xa Level ABG pH POC ABG pCO2 POC ABG pO2 ABG pO2 ABG HCO3 ABG O2 Saturation ABG Base Excess ABG Hemoglobin ABG Oxyhemoglobin ABG Sodium ABG Potassium ABG Chloride ABG Glucose Oxyhemoglobin Carboxyhemoglobin Sodium Potassium Chloride Carbon Dioxide BUN Creatinine Glucose POC Glucose Lactic Acid 2.20 H* Calcium Magnesium Ferritin 26999.0 H Total Bilirubin Direct Bilirubin AST ALT Alkaline Phosphatase Lactate Dehydrogenase C-Reactive Protein Total Protein Albumin Triglycerides Lipase Arterial Blood Glucose Arterial Blood Ionized Calcium Urine WBC (Auto) Coronavirus (PCR) SARS-CoV-2 IgG Ab Crossmatch 05/09/20 05/09/20 05/09/20 14:20 14:20 15:56 WBC RBC Hgb Hct MCV MCH MCHC RDW Lymph % (Auto) Lymph # (Auto) [place] # (Auto) Baso # (Auto) Seg Neutrophils % Seg Neuts % (Manual) Lymphocytes % (Manual) Nucleated RBC % Seg Neutrophils # Seg Neutrophils # Man Lymphocytes # (Manual) Monocytes # (Manual) Eosinophils # (Manual) PT INR APTT D-Dimer Heparin Anti-Xa Level ABG pH POC ABG pCO2 POC ABG pO2 57.3 L ABG pO2 ABG HCO3 ABG O2 Saturation ABG Base Excess ABG Hemoglobin ABG Oxyhemoglobin 86.3 L ABG Sodium 129.9 L ABG Potassium ABG Chloride ABG Glucose 146 H Oxyhemoglobin Carboxyhemoglobin Sodium Potassium Chloride Carbon Dioxide BUN Creatinine Glucose 143 H POC Glucose Lactic Acid Calcium Magnesium Ferritin 68868.0 H Total Bilirubin Direct Bilirubin AST ALT Alkaline Phosphatase Lactate Dehydrogenase 1953 H C-Reactive Protein 33.50 H Total Protein Albumin Triglycerides Lipase Arterial Blood Glucose 146 H Arterial Blood Ionized Calcium 3.9 L Urine WBC (Auto) Coronavirus (PCR) SARS-CoV-2 IgG Ab Crossmatch 05/10/20 05/10/20 05/10/20 10:32 10:32 18:50 WBC 15.4 H RBC Hgb Hct MCV 97 H MCH 33 H MCHC RDW 13.1 L Lymph % (Auto) Lymph # (Auto) [place] # (Auto) Baso # (Auto) Seg Neutrophils % Seg Neuts % (Manual) 89.0 H Lymphocytes % (Manual) 8.0 L Nucleated RBC % Seg Neutrophils # Seg Neutrophils # Man 13.7 H Lymphocytes # (Manual) Monocytes # (Manual) Eosinophils # (Manual) PT INR APTT D-Dimer Heparin Anti-Xa Level ABG pH POC ABG pCO2 POC ABG pO2 ABG pO2 ABG HCO3 ABG O2 Saturation ABG Base Excess ABG Hemoglobin ABG Oxyhemoglobin ABG Sodium ABG Potassium ABG Chloride ABG Glucose Oxyhemoglobin Carboxyhemoglobin Sodium 136 L Potassium Chloride 97.4 L Carbon Dioxide BUN 37 H Creatinine 1.7 H Glucose 209 H POC Glucose Lactic Acid Calcium Magnesium Ferritin > 2000.0 H Total Bilirubin Direct Bilirubin AST ALT Alkaline Phosphatase Lactate Dehydrogenase C-Reactive Protein Total Protein Albumin Triglycerides Lipase Arterial Blood Glucose Arterial Blood Ionized Calcium Urine WBC (Auto) Coronavirus (PCR) SARS-CoV-2 IgG Ab Crossmatch 05/10/20 05/10/20 05/10/20 18:50 19:00 Unknown WBC RBC Hgb Hct MCV MCH MCHC RDW Lymph % (Auto) Lymph # (Auto) [place] # (Auto) Baso # (Auto) Seg Neutrophils % Seg Neuts % (Manual) Lymphocytes % (Manual) Nucleated RBC % Seg Neutrophils # Seg Neutrophils # Man Lymphocytes # (Manual) Monocytes # (Manual) Eosinophils # (Manual) PT INR APTT D-Dimer > 26595 H Heparin Anti-Xa Level ABG pH POC ABG pCO2 POC ABG pO2 ABG pO2 ABG HCO3 ABG O2 Saturation ABG Base Excess ABG Hemoglobin ABG Oxyhemoglobin ABG Sodium ABG Potassium ABG Chloride ABG Glucose Oxyhemoglobin Carboxyhemoglobin Sodium Potassium Chloride Carbon Dioxide BUN Creatinine Glucose POC Glucose Lactic Acid Calcium Magnesium Ferritin Total Bilirubin Direct Bilirubin AST ALT Alkaline Phosphatase Lactate Dehydrogenase 1879 H C-Reactive Protein 24.80 H Total Protein Albumin Triglycerides Lipase Arterial Blood Glucose Arterial Blood Ionized Calcium Urine WBC (Auto) 11.0 H Coronavirus (PCR) SARS-CoV-2 IgG Ab Crossmatch 05/10/20 05/11/20 05/11/20 Unknown 07:30 07:30 WBC RBC Hgb Hct MCV MCH MCHC RDW Lymph % (Auto) Lymph # (Auto) [place] # (Auto) Baso # (Auto) Seg Neutrophils % Seg Neuts % (Manual) Lymphocytes % (Manual) Nucleated RBC % Seg Neutrophils # Seg Neutrophils # Man Lymphocytes # (Manual) Monocytes # (Manual) Eosinophils # (Manual) PT INR APTT D-Dimer > 2000 H Heparin Anti-Xa Level ABG pH POC ABG pCO2 POC ABG pO2 ABG pO2 ABG HCO3 ABG O2 Saturation ABG Base Excess ABG Hemoglobin ABG Oxyhemoglobin ABG Sodium ABG Potassium ABG Chloride ABG Glucose Oxyhemoglobin Carboxyhemoglobin Sodium Potassium Chloride 96.3 L Carbon Dioxide BUN 36 H Creatinine Glucose 161 H POC Glucose Lactic Acid Calcium 8.3 L Magnesium Ferritin Total Bilirubin 1.50 H Direct Bilirubin 0.6 H AST 178 H ALT 111 H Alkaline Phosphatase Lactate Dehydrogenase C-Reactive Protein Total Protein Albumin 3.0 L Triglycerides Lipase Arterial Blood Glucose Arterial Blood Ionized Calcium Urine WBC (Auto) Coronavirus (PCR) Positive A SARS-CoV-2 IgG Ab Crossmatch 05/11/20 05/11/20 05/11/20 07:30 07:30 07:30 WBC RBC Hgb Hct MCV MCH MCHC RDW Lymph % (Auto) Lymph # (Auto) [place] # (Auto) Baso # (Auto) Seg Neutrophils % Seg Neuts % (Manual) Lymphocytes % (Manual) Nucleated RBC % Seg Neutrophils # Seg Neutrophils # Man Lymphocytes # (Manual) Monocytes # (Manual) Eosinophils # (Manual) PT INR APTT D-Dimer Heparin Anti-Xa Level ABG pH POC ABG pCO2 POC ABG pO2 ABG pO2 ABG HCO3 ABG O2 Saturation ABG Base Excess ABG Hemoglobin ABG Oxyhemoglobin ABG Sodium ABG Potassium ABG Chloride ABG Glucose Oxyhemoglobin Carboxyhemoglobin Sodium Potassium Chloride Carbon Dioxide BUN Creatinine Glucose POC Glucose Lactic Acid Calcium Magnesium Ferritin 63152.0 H Total Bilirubin Direct Bilirubin AST ALT Alkaline Phosphatase Lactate Dehydrogenase 1523 H C-Reactive Protein 12.90 H Total Protein Albumin Triglycerides Lipase Arterial Blood Glucose Arterial Blood Ionized Calcium Urine WBC (Auto) Coronavirus (PCR) SARS-CoV-2 IgG Ab Reactive A Crossmatch 05/13/20 05/13/20 05/15/20 05:20 05:20 08:15 WBC RBC Hgb Hct MCV MCH MCHC RDW Lymph % (Auto) Lymph # (Auto) [place] # (Auto) Baso # (Auto) Seg Neutrophils % Seg Neuts % (Manual) Lymphocytes % (Manual) Nucleated RBC % Seg Neutrophils # Seg Neutrophils # Man Lymphocytes # (Manual) Monocytes # (Manual) Eosinophils # (Manual) PT INR APTT D-Dimer > 74181 H 5318.28 H Heparin Anti-Xa Level ABG pH POC ABG pCO2 POC ABG pO2 ABG pO2 ABG HCO3 ABG O2 Saturation ABG Base Excess ABG Hemoglobin ABG Oxyhemoglobin ABG Sodium ABG Potassium ABG Chloride ABG Glucose Oxyhemoglobin Carboxyhemoglobin Sodium Potassium Chloride Carbon Dioxide 32 H BUN 30 H Creatinine Glucose 156 H POC Glucose Lactic Acid Calcium Magnesium 2.60 H Ferritin Total Bilirubin 1.40 H Direct Bilirubin AST 121 H ALT 119 H Alkaline Phosphatase Lactate Dehydrogenase 957 H C-Reactive Protein 4.00 H Total Protein Albumin 3.0 L Triglycerides Lipase Arterial Blood Glucose Arterial Blood Ionized Calcium Urine WBC (Auto) Coronavirus (PCR) SARS-CoV-2 IgG Ab Crossmatch 05/15/20 05/15/20 05/15/20 08:15 08:15 08:15 WBC 12.4 H RBC Hgb Hct MCV 98 H MCH 33 H MCHC RDW Lymph % (Auto) 9.7 L Lymph # (Auto) [place] # (Auto) Baso # (Auto) Seg Neutrophils % 86.8 H Seg Neuts % (Manual) Lymphocytes % (Manual) Nucleated RBC % Seg Neutrophils # 10.8 H Seg Neutrophils # Man Lymphocytes # (Manual) Monocytes # (Manual) Eosinophils # (Manual) PT INR APTT D-Dimer Heparin Anti-Xa Level ABG pH POC ABG pCO2 POC ABG pO2 ABG pO2 ABG HCO3 ABG O2 Saturation ABG Base Excess ABG Hemoglobin ABG Oxyhemoglobin ABG Sodium ABG Potassium ABG Chloride ABG Glucose Oxyhemoglobin Carboxyhemoglobin Sodium Potassium Chloride 94.8 L Carbon Dioxide 32 H BUN 22 H Creatinine Glucose 115 H POC Glucose Lactic Acid Calcium 8.3 L Magnesium Ferritin 2494.0 H Total Bilirubin Direct Bilirubin AST 73 H ALT 121 H Alkaline Phosphatase Lactate Dehydrogenase 835 H C-Reactive Protein 3.40 H Total Protein 6.1 L Albumin 3.0 L Triglycerides Lipase Arterial Blood Glucose Arterial Blood Ionized Calcium Urine WBC (Auto) Coronavirus (PCR) SARS-CoV-2 IgG Ab Crossmatch 05/17/20 05/17/20 05/17/20 05:50 05:50 05:50 WBC RBC Hgb Hct MCV MCH MCHC RDW Lymph % (Auto) Lymph # (Auto) [place] # (Auto) Baso # (Auto) Seg Neutrophils % Seg Neuts % (Manual) Lymphocytes % (Manual) Nucleated RBC % Seg Neutrophils # Seg Neutrophils # Man Lymphocytes # (Manual) Monocytes # (Manual) Eosinophils # (Manual) PT INR APTT D-Dimer 2911.42 H Heparin Anti-Xa Level ABG pH POC ABG pCO2 POC ABG pO2 ABG pO2 ABG HCO3 ABG O2 Saturation ABG Base Excess ABG Hemoglobin ABG Oxyhemoglobin ABG Sodium ABG Potassium ABG Chloride ABG Glucose Oxyhemoglobin Carboxyhemoglobin Sodium 136 L Potassium Chloride 96.0 L Carbon Dioxide 34 H BUN 22 H Creatinine Glucose 140 H POC Glucose Lactic Acid Calcium Magnesium Ferritin 2082.0 H Total Bilirubin Direct Bilirubin AST ALT 75 H Alkaline Phosphatase Lactate Dehydrogenase 601 H C-Reactive Protein 2.70 H Total Protein Albumin 2.9 L Triglycerides Lipase Arterial Blood Glucose Arterial Blood Ionized Calcium Urine WBC (Auto) Coronavirus (PCR) SARS-CoV-2 IgG Ab Crossmatch 05/17/20 05/18/20 05/20/20 05:50 12:22 08:16 WBC RBC Hgb Hct MCV 98 H MCH 33 H MCHC RDW Lymph % (Auto) 8.0 L Lymph # (Auto) 0.8 L [place] # (Auto) Baso # (Auto) Seg Neutrophils % 89.3 H Seg Neuts % (Manual) Lymphocytes % (Manual) Nucleated RBC % Seg Neutrophils # 8.8 H Seg Neutrophils # Man Lymphocytes # (Manual) Monocytes # (Manual) Eosinophils # (Manual) PT INR APTT D-Dimer 1887.82 H Heparin Anti-Xa Level ABG pH POC ABG pCO2 POC ABG pO2 ABG pO2 ABG HCO3 ABG O2 Saturation ABG Base Excess ABG Hemoglobin ABG Oxyhemoglobin ABG Sodium ABG Potassium ABG Chloride ABG Glucose Oxyhemoglobin Carboxyhemoglobin Sodium Potassium Chloride Carbon Dioxide BUN Creatinine Glucose POC Glucose 178 H Lactic Acid Calcium Magnesium Ferritin Total Bilirubin Direct Bilirubin AST ALT Alkaline Phosphatase Lactate Dehydrogenase C-Reactive Protein Total Protein Albumin Triglycerides Lipase Arterial Blood Glucose Arterial Blood Ionized Calcium Urine WBC (Auto) Coronavirus (PCR) SARS-CoV-2 IgG Ab Crossmatch 05/20/20 05/20/20 05/21/20 08:16 08:16 21:10 WBC RBC Hgb Hct MCV MCH MCHC RDW Lymph % (Auto) Lymph # (Auto) [place] # (Auto) Baso # (Auto) Seg Neutrophils % Seg Neuts % (Manual) Lymphocytes % (Manual) Nucleated RBC % Seg Neutrophils # Seg Neutrophils # Man Lymphocytes # (Manual) Monocytes # (Manual) Eosinophils # (Manual) PT INR APTT D-Dimer Heparin Anti-Xa Level ABG pH 7.483 H POC ABG pCO2 POC ABG pO2 ABG pO2 50.0 L ABG HCO3 27.0 H ABG O2 Saturation 86.2 L ABG Base Excess 3.7 H ABG Hemoglobin ABG Oxyhemoglobin ABG Sodium ABG Potassium ABG Chloride ABG Glucose Oxyhemoglobin 84.2 L Carboxyhemoglobin Sodium Potassium Chloride Carbon Dioxide BUN Creatinine Glucose POC Glucose Lactic Acid Calcium Magnesium Ferritin 1960.0 H Total Bilirubin Direct Bilirubin AST ALT Alkaline Phosphatase Lactate Dehydrogenase 705 H C-Reactive Protein 3.10 H Total Protein Albumin Triglycerides Lipase Arterial Blood Glucose Arterial Blood Ionized Calcium Urine WBC (Auto) Coronavirus (PCR) SARS-CoV-2 IgG Ab Crossmatch 05/22/20 05/22/20 05/22/20 04:01 07:53 07:53 WBC 19.2 H RBC Hgb Hct MCV 98 H MCH 34 H MCHC RDW Lymph % (Auto) Lymph # (Auto) [place] # (Auto) Baso # (Auto) Seg Neutrophils % Seg Neuts % (Manual) 96.0 H Lymphocytes % (Manual) 1.0 L Nucleated RBC % Seg Neutrophils # Seg Neutrophils # Man 18.4 H Lymphocytes # (Manual) 0.2 L Monocytes # (Manual) Eosinophils # (Manual) PT INR APTT D-Dimer Heparin Anti-Xa Level ABG pH POC ABG pCO2 53.8 H POC ABG pO2 125.5 H ABG pO2 ABG HCO3 ABG O2 Saturation ABG Base Excess ABG Hemoglobin ABG Oxyhemoglobin ABG Sodium 131.8 L ABG Potassium 4.8 H ABG Chloride 94.0 L ABG Glucose 163 H Oxyhemoglobin Carboxyhemoglobin Sodium 131 L Potassium Chloride 93.4 L Carbon Dioxide BUN 40 H Creatinine Glucose 176 H POC Glucose Lactic Acid Calcium Magnesium 2.70 H Ferritin Total Bilirubin 1.80 H Direct Bilirubin AST 45 H ALT 116 H Alkaline Phosphatase 181 H Lactate Dehydrogenase C-Reactive Protein Total Protein Albumin 2.6 L Triglycerides Lipase Arterial Blood Glucose 163 H Arterial Blood Ionized Calcium 4.5 L Urine WBC (Auto) Coronavirus (PCR) SARS-CoV-2 IgG Ab Crossmatch 05/23/20 05/24/20 05/24/20 04:17 03:07 04:08 WBC RBC Hgb Hct MCV MCH MCHC RDW Lymph % (Auto) Lymph # (Auto) [place] # (Auto) Baso # (Auto) Seg Neutrophils % Seg Neuts % (Manual) Lymphocytes % (Manual) Nucleated RBC % Seg Neutrophils # Seg Neutrophils # Man Lymphocytes # (Manual) Monocytes # (Manual) Eosinophils # (Manual) PT INR APTT D-Dimer Heparin Anti-Xa Level ABG pH 7.328 L POC ABG pCO2 POC ABG pO2 ABG pO2 72.8 L 73.4 L ABG HCO3 31.0 H 34.0 H ABG O2 Saturation 93.5 L ABG Base Excess 3.5 H 7.7 H ABG Hemoglobin 13.3 L 12.1 L ABG Oxyhemoglobin ABG Sodium ABG Potassium ABG Chloride ABG Glucose Oxyhemoglobin 91.5 L 94.3 L Carboxyhemoglobin Sodium Potassium Chloride Carbon Dioxide BUN Creatinine Glucose POC Glucose 155 H Lactic Acid Calcium Magnesium Ferritin Total Bilirubin Direct Bilirubin AST ALT Alkaline Phosphatase Lactate Dehydrogenase C-Reactive Protein Total Protein Albumin Triglycerides Lipase Arterial Blood Glucose Arterial Blood Ionized Calcium Urine WBC (Auto) Coronavirus (PCR) SARS-CoV-2 IgG Ab Crossmatch 05/24/20 05/24/20 05/24/20 09:33 12:21 17:52 WBC RBC Hgb Hct MCV MCH MCHC RDW Lymph % (Auto) Lymph # (Auto) [place] # (Auto) Baso # (Auto) Seg Neutrophils % Seg Neuts % (Manual) Lymphocytes % (Manual) Nucleated RBC % Seg Neutrophils # Seg Neutrophils # Man Lymphocytes # (Manual) Monocytes # (Manual) Eosinophils # (Manual) PT INR APTT D-Dimer Heparin Anti-Xa Level ABG pH POC ABG pCO2 POC ABG pO2 ABG pO2 ABG HCO3 ABG O2 Saturation ABG Base Excess ABG Hemoglobin ABG Oxyhemoglobin ABG Sodium ABG Potassium ABG Chloride ABG Glucose Oxyhemoglobin Carboxyhemoglobin Sodium Potassium Chloride Carbon Dioxide 34 H D BUN 28 H Creatinine 0.7 L Glucose 168 H POC Glucose 173 H 164 H Lactic Acid Calcium Magnesium Ferritin Total Bilirubin Direct Bilirubin AST ALT Alkaline Phosphatase Lactate Dehydrogenase C-Reactive Protein Total Protein Albumin Triglycerides Lipase Arterial Blood Glucose Arterial Blood Ionized Calcium Urine WBC (Auto) Coronavirus (PCR) SARS-CoV-2 IgG Ab Crossmatch 05/24/20 05/25/20 05/25/20 23:47 04:29 05:46 WBC RBC Hgb Hct MCV MCH MCHC RDW Lymph % (Auto) Lymph # (Auto) [place] # (Auto) Baso # (Auto) Seg Neutrophils % Seg Neuts % (Manual) Lymphocytes % (Manual) Nucleated RBC % Seg Neutrophils # Seg Neutrophils # Man Lymphocytes # (Manual) Monocytes # (Manual) Eosinophils # (Manual) PT INR APTT D-Dimer Heparin Anti-Xa Level ABG pH POC ABG pCO2 68.6 H POC ABG pO2 ABG pO2 ABG HCO3 ABG O2 Saturation ABG Base Excess ABG Hemoglobin ABG Oxyhemoglobin ABG Sodium ABG Potassium 4.7 H ABG Chloride ABG Glucose 226 H Oxyhemoglobin Carboxyhemoglobin Sodium Potassium Chloride Carbon Dioxide BUN Creatinine Glucose POC Glucose 171 H 201 H Lactic Acid Calcium Magnesium Ferritin Total Bilirubin Direct Bilirubin AST ALT Alkaline Phosphatase Lactate Dehydrogenase C-Reactive Protein Total Protein Albumin Triglycerides Lipase Arterial Blood Glucose 226 H Arterial Blood Ionized Calcium Urine WBC (Auto) Coronavirus (PCR) SARS-CoV-2 IgG Ab Crossmatch 05/25/20 05/25/20 05/25/20 08:37 08:37 12:38 WBC 12.0 H RBC 3.64 L Hgb Hct MCV 99 H MCH 33 H MCHC RDW Lymph % (Auto) Lymph # (Auto) [place] # (Auto) Baso # (Auto) Seg Neutrophils % Seg Neuts % (Manual) Lymphocytes % (Manual) Nucleated RBC % Seg Neutrophils # Seg Neutrophils # Man Lymphocytes # (Manual) Monocytes # (Manual) Eosinophils # (Manual) PT INR APTT D-Dimer Heparin Anti-Xa Level ABG pH POC ABG pCO2 POC ABG pO2 ABG pO2 ABG HCO3 ABG O2 Saturation ABG Base Excess ABG Hemoglobin ABG Oxyhemoglobin ABG Sodium ABG Potassium ABG Chloride ABG Glucose Oxyhemoglobin Carboxyhemoglobin Sodium Potassium Chloride 97.3 L Carbon Dioxide 35 H BUN 25 H Creatinine 0.7 L Glucose 191 H POC Glucose 182 H Lactic Acid Calcium Magnesium Ferritin Total Bilirubin Direct Bilirubin AST ALT Alkaline Phosphatase Lactate Dehydrogenase C-Reactive Protein Total Protein Albumin Triglycerides Lipase Arterial Blood Glucose Arterial Blood Ionized Calcium Urine WBC (Auto) Coronavirus (PCR) SARS-CoV-2 IgG Ab Crossmatch 05/25/20 05/26/20 05/26/20 18:16 00:06 04:50 WBC RBC Hgb Hct MCV MCH MCHC RDW Lymph % (Auto) Lymph # (Auto) [place] # (Auto) Baso # (Auto) Seg Neutrophils % Seg Neuts % (Manual) Lymphocytes % (Manual) Nucleated RBC % Seg Neutrophils # Seg Neutrophils # Man Lymphocytes # (Manual) Monocytes # (Manual) Eosinophils # (Manual) PT INR APTT D-Dimer Heparin Anti-Xa Level ABG pH POC ABG pCO2 POC ABG pO2 ABG pO2 221.5 H ABG HCO3 40.4 H ABG O2 Saturation 99.3 H ABG Base Excess 12.8 H ABG Hemoglobin 10.4 L ABG Oxyhemoglobin ABG Sodium ABG Potassium ABG Chloride ABG Glucose Oxyhemoglobin Carboxyhemoglobin Sodium Potassium Chloride Carbon Dioxide BUN Creatinine Glucose POC Glucose 176 H 152 H Lactic Acid Calcium Magnesium Ferritin Total Bilirubin Direct Bilirubin AST ALT Alkaline Phosphatase Lactate Dehydrogenase C-Reactive Protein Total Protein Albumin Triglycerides Lipase Arterial Blood Glucose Arterial Blood Ionized Calcium Urine WBC (Auto) Coronavirus (PCR) SARS-CoV-2 IgG Ab Crossmatch 05/26/20 05/26/20 05/26/20 06:11 07:51 07:51 WBC 13.4 H RBC 3.64 L Hgb Hct MCV 98 H MCH 33 H MCHC RDW Lymph % (Auto) Lymph # (Auto) [place] # (Auto) Baso # (Auto) Seg Neutrophils % Seg Neuts % (Manual) Lymphocytes % (Manual) Nucleated RBC % Seg Neutrophils # Seg Neutrophils # Man Lymphocytes # (Manual) Monocytes # (Manual) Eosinophils # (Manual) PT INR APTT D-Dimer Heparin Anti-Xa Level ABG pH POC ABG pCO2 POC ABG pO2 ABG pO2 ABG HCO3 ABG O2 Saturation ABG Base Excess ABG Hemoglobin ABG Oxyhemoglobin ABG Sodium ABG Potassium ABG Chloride ABG Glucose Oxyhemoglobin Carboxyhemoglobin Sodium Potassium Chloride 96.6 L Carbon Dioxide 39 H BUN 29 H Creatinine 0.7 L Glucose 174 H POC Glucose 165 H Lactic Acid Calcium Magnesium Ferritin Total Bilirubin Direct Bilirubin AST ALT Alkaline Phosphatase Lactate Dehydrogenase C-Reactive Protein Total Protein Albumin Triglycerides Lipase Arterial Blood Glucose Arterial Blood Ionized Calcium Urine WBC (Auto) Coronavirus (PCR) SARS-CoV-2 IgG Ab Crossmatch 05/26/20 05/27/20 05/27/20 23:23 03:43 05:29 WBC RBC Hgb Hct MCV MCH MCHC RDW Lymph % (Auto) Lymph # (Auto) [place] # (Auto) Baso # (Auto) Seg Neutrophils % Seg Neuts % (Manual) Lymphocytes % (Manual) Nucleated RBC % Seg Neutrophils # Seg Neutrophils # Man Lymphocytes # (Manual) Monocytes # (Manual) Eosinophils # (Manual) PT INR APTT D-Dimer Heparin Anti-Xa Level ABG pH 7.480 H POC ABG pCO2 52.4 H POC ABG pO2 61.4 L ABG pO2 ABG HCO3 ABG O2 Saturation ABG Base Excess ABG Hemoglobin ABG Oxyhemoglobin ABG Sodium 134.9 L ABG Potassium ABG Chloride 95.0 L ABG Glucose 221 H Oxyhemoglobin Carboxyhemoglobin Sodium Potassium Chloride Carbon Dioxide BUN Creatinine Glucose POC Glucose 169 H 227 H Lactic Acid Calcium Magnesium Ferritin Total Bilirubin Direct Bilirubin AST ALT Alkaline Phosphatase Lactate Dehydrogenase C-Reactive Protein Total Protein Albumin Triglycerides Lipase Arterial Blood Glucose 221 H Arterial Blood Ionized Calcium 4.5 L Urine WBC (Auto) Coronavirus (PCR) SARS-CoV-2 IgG Ab Crossmatch 05/27/20 05/27/20 05/27/20 07:19 12:18 13:50 WBC RBC Hgb Hct MCV MCH MCHC RDW Lymph % (Auto) Lymph # (Auto) [place] # (Auto) Baso # (Auto) Seg Neutrophils % Seg Neuts % (Manual) Lymphocytes % (Manual) Nucleated RBC % Seg Neutrophils # Seg Neutrophils # Man Lymphocytes # (Manual) Monocytes # (Manual) Eosinophils # (Manual) PT INR APTT D-Dimer Heparin Anti-Xa Level ABG pH POC ABG pCO2 POC ABG pO2 ABG pO2 ABG HCO3 ABG O2 Saturation ABG Base Excess ABG Hemoglobin ABG Oxyhemoglobin ABG Sodium ABG Potassium ABG Chloride ABG Glucose Oxyhemoglobin Carboxyhemoglobin Sodium Potassium Chloride Carbon Dioxide BUN Creatinine Glucose POC Glucose 114 H 148 H Lactic Acid Calcium Magnesium Ferritin Total Bilirubin Direct Bilirubin AST ALT Alkaline Phosphatase Lactate Dehydrogenase C-Reactive Protein Total Protein Albumin Triglycerides 247 H Lipase Arterial Blood Glucose Arterial Blood Ionized Calcium Urine WBC (Auto) Coronavirus (PCR) SARS-CoV-2 IgG Ab Crossmatch 05/28/20 05/28/20 05/28/20 00:13 04:16 05:22 WBC RBC Hgb Hct MCV MCH MCHC RDW Lymph % (Auto) Lymph # (Auto) [place] # (Auto) Baso # (Auto) Seg Neutrophils % Seg Neuts % (Manual) Lymphocytes % (Manual) Nucleated RBC % Seg Neutrophils # Seg Neutrophils # Man Lymphocytes # (Manual) Monocytes # (Manual) Eosinophils # (Manual) PT INR APTT D-Dimer Heparin Anti-Xa Level ABG pH POC ABG pCO2 64.4 H POC ABG pO2 60.5 L ABG pO2 ABG HCO3 ABG O2 Saturation ABG Base Excess ABG Hemoglobin ABG Oxyhemoglobin ABG Sodium ABG Potassium ABG Chloride 95.0 L ABG Glucose 209 H Oxyhemoglobin Carboxyhemoglobin Sodium Potassium Chloride Carbon Dioxide BUN Creatinine Glucose POC Glucose 155 H 186 H Lactic Acid Calcium Magnesium Ferritin Total Bilirubin Direct Bilirubin AST ALT Alkaline Phosphatase Lactate Dehydrogenase C-Reactive Protein Total Protein Albumin Triglycerides Lipase Arterial Blood Glucose 209 H Arterial Blood Ionized Calcium Urine WBC (Auto) Coronavirus (PCR) SARS-CoV-2 IgG Ab Crossmatch 05/28/20 05/28/20 05/29/20 12:45 17:39 00:37 WBC RBC Hgb Hct MCV MCH MCHC RDW Lymph % (Auto) Lymph # (Auto) [place] # (Auto) Baso # (Auto) Seg Neutrophils % Seg Neuts % (Manual) Lymphocytes % (Manual) Nucleated RBC % Seg Neutrophils # Seg Neutrophils # Man Lymphocytes # (Manual) Monocytes # (Manual) Eosinophils # (Manual) PT INR APTT D-Dimer Heparin Anti-Xa Level ABG pH POC ABG pCO2 POC ABG pO2 ABG pO2 ABG HCO3 ABG O2 Saturation ABG Base Excess ABG Hemoglobin ABG Oxyhemoglobin ABG Sodium ABG Potassium ABG Chloride ABG Glucose Oxyhemoglobin Carboxyhemoglobin Sodium Potassium Chloride Carbon Dioxide BUN Creatinine Glucose POC Glucose 143 H 164 H 221 H Lactic Acid Calcium Magnesium Ferritin Total Bilirubin Direct Bilirubin AST ALT Alkaline Phosphatase Lactate Dehydrogenase C-Reactive Protein Total Protein Albumin Triglycerides Lipase Arterial Blood Glucose Arterial Blood Ionized Calcium Urine WBC (Auto) Coronavirus (PCR) SARS-CoV-2 IgG Ab Crossmatch 05/29/20 05/29/20 05/29/20 04:15 05:33 12:34 WBC RBC Hgb Hct MCV MCH MCHC RDW Lymph % (Auto) Lymph # (Auto) [place] # (Auto) Baso # (Auto) Seg Neutrophils % Seg Neuts % (Manual) Lymphocytes % (Manual) Nucleated RBC % Seg Neutrophils # Seg Neutrophils # Man Lymphocytes # (Manual) Monocytes # (Manual) Eosinophils # (Manual) PT INR APTT D-Dimer Heparin Anti-Xa Level ABG pH 7.463 H POC ABG pCO2 56.3 H POC ABG pO2 81.2 L ABG pO2 ABG HCO3 ABG O2 Saturation ABG Base Excess ABG Hemoglobin ABG Oxyhemoglobin ABG Sodium ABG Potassium ABG Chloride 96.0 L ABG Glucose 194 H Oxyhemoglobin Carboxyhemoglobin Sodium Potassium Chloride Carbon Dioxide BUN Creatinine Glucose POC Glucose 133 H 221 H Lactic Acid Calcium Magnesium Ferritin Total Bilirubin Direct Bilirubin AST ALT Alkaline Phosphatase Lactate Dehydrogenase C-Reactive Protein Total Protein Albumin Triglycerides Lipase Arterial Blood Glucose 194 H Arterial Blood Ionized Calcium 4.5 L Urine WBC (Auto) Coronavirus (PCR) SARS-CoV-2 IgG Ab Crossmatch 05/29/20 05/30/20 05/30/20 18:07 00:12 05:38 WBC RBC Hgb Hct MCV MCH MCHC RDW Lymph % (Auto) Lymph # (Auto) [place] # (Auto) Baso # (Auto) Seg Neutrophils % Seg Neuts % (Manual) Lymphocytes % (Manual) Nucleated RBC % Seg Neutrophils # Seg Neutrophils # Man Lymphocytes # (Manual) Monocytes # (Manual) Eosinophils # (Manual) PT INR APTT D-Dimer Heparin Anti-Xa Level ABG pH POC ABG pCO2 POC ABG pO2 ABG pO2 ABG HCO3 ABG O2 Saturation ABG Base Excess ABG Hemoglobin ABG Oxyhemoglobin ABG Sodium ABG Potassium ABG Chloride ABG Glucose Oxyhemoglobin Carboxyhemoglobin Sodium Potassium Chloride Carbon Dioxide BUN Creatinine Glucose POC Glucose 162 H 190 H 208 H Lactic Acid Calcium Magnesium Ferritin Total Bilirubin Direct Bilirubin AST ALT Alkaline Phosphatase Lactate Dehydrogenase C-Reactive Protein Total Protein Albumin Triglycerides Lipase Arterial Blood Glucose Arterial Blood Ionized Calcium Urine WBC (Auto) Coronavirus (PCR) SARS-CoV-2 IgG Ab Crossmatch 05/30/20 05/30/20 05/30/20 09:30 11:35 11:54 WBC 12.4 H RBC 3.48 L Hgb 11.3 L Hct 34.6 L MCV 99 H MCH 33 H MCHC RDW Lymph % (Auto) Lymph # (Auto) [place] # (Auto) Baso # (Auto) Seg Neutrophils % Seg Neuts % (Manual) Lymphocytes % (Manual) Nucleated RBC % Seg Neutrophils # Seg Neutrophils # Man Lymphocytes # (Manual) Monocytes # (Manual) Eosinophils # (Manual) PT INR APTT D-Dimer Heparin Anti-Xa Level ABG pH 7.455 H POC ABG pCO2 57.5 H POC ABG pO2 81.5 L ABG pO2 ABG HCO3 ABG O2 Saturation ABG Base Excess ABG Hemoglobin ABG Oxyhemoglobin ABG Sodium ABG Potassium ABG Chloride 96.0 L ABG Glucose 204 H Oxyhemoglobin Carboxyhemoglobin Sodium Potassium Chloride Carbon Dioxide BUN Creatinine Glucose POC Glucose 183 H Lactic Acid Calcium Magnesium Ferritin Total Bilirubin Direct Bilirubin AST ALT Alkaline Phosphatase Lactate Dehydrogenase C-Reactive Protein Total Protein Albumin Triglycerides Lipase Arterial Blood Glucose 204 H Arterial Blood Ionized Calcium Urine WBC (Auto) Coronavirus (PCR) SARS-CoV-2 IgG Ab Crossmatch 05/30/20 05/31/20 05/31/20 18:01 00:10 03:22 WBC RBC Hgb Hct MCV MCH MCHC RDW Lymph % (Auto) Lymph # (Auto) [place] # (Auto) Baso # (Auto) Seg Neutrophils % Seg Neuts % (Manual) Lymphocytes % (Manual) Nucleated RBC % Seg Neutrophils # Seg Neutrophils # Man Lymphocytes # (Manual) Monocytes # (Manual) Eosinophils # (Manual) PT INR APTT D-Dimer Heparin Anti-Xa Level ABG pH POC ABG pCO2 60.4 H POC ABG pO2 71.5 L ABG pO2 ABG HCO3 ABG O2 Saturation ABG Base Excess ABG Hemoglobin ABG Oxyhemoglobin ABG Sodium ABG Potassium ABG Chloride 96.0 L ABG Glucose 169 H Oxyhemoglobin Carboxyhemoglobin Sodium Potassium Chloride Carbon Dioxide BUN Creatinine Glucose POC Glucose 184 H 135 H Lactic Acid Calcium Magnesium Ferritin Total Bilirubin Direct Bilirubin AST ALT Alkaline Phosphatase Lactate Dehydrogenase C-Reactive Protein Total Protein Albumin Triglycerides Lipase Arterial Blood Glucose 169 H Arterial Blood Ionized Calcium 4.5 L Urine WBC (Auto) Coronavirus (PCR) SARS-CoV-2 IgG Ab Crossmatch 05/31/20 05/31/20 05/31/20 05:24 11:18 14:41 WBC RBC Hgb Hct MCV MCH MCHC RDW Lymph % (Auto) Lymph # (Auto) [place] # (Auto) Baso # (Auto) Seg Neutrophils % Seg Neuts % (Manual) Lymphocytes % (Manual) Nucleated RBC % Seg Neutrophils # Seg Neutrophils # Man Lymphocytes # (Manual) Monocytes # (Manual) Eosinophils # (Manual) PT INR APTT D-Dimer Heparin Anti-Xa Level ABG pH POC ABG pCO2 POC ABG pO2 ABG pO2 ABG HCO3 ABG O2 Saturation ABG Base Excess ABG Hemoglobin ABG Oxyhemoglobin ABG Sodium ABG Potassium ABG Chloride ABG Glucose Oxyhemoglobin Carboxyhemoglobin Sodium Potassium Chloride 96.8 L Carbon Dioxide 37 H BUN 31 H Creatinine 0.6 L Glucose 213 H POC Glucose 164 H 208 H Lactic Acid Calcium Magnesium Ferritin Total Bilirubin Direct Bilirubin AST ALT Alkaline Phosphatase Lactate Dehydrogenase C-Reactive Protein Total Protein Albumin Triglycerides Lipase Arterial Blood Glucose Arterial Blood Ionized Calcium Urine WBC (Auto) Coronavirus (PCR) SARS-CoV-2 IgG Ab Crossmatch 05/31/20 05/31/20 06/01/20 17:37 23:47 03:48 WBC RBC Hgb Hct MCV MCH MCHC RDW Lymph % (Auto) Lymph # (Auto) [place] # (Auto) Baso # (Auto) Seg Neutrophils % Seg Neuts % (Manual) Lymphocytes % (Manual) Nucleated RBC % Seg Neutrophils # Seg Neutrophils # Man Lymphocytes # (Manual) Monocytes # (Manual) Eosinophils # (Manual) PT INR APTT D-Dimer Heparin Anti-Xa Level ABG pH POC ABG pCO2 59.7 H POC ABG pO2 73.9 L ABG pO2 ABG HCO3 ABG O2 Saturation ABG Base Excess ABG Hemoglobin ABG Oxyhemoglobin ABG Sodium ABG Potassium ABG Chloride 95.0 L ABG Glucose 256 H Oxyhemoglobin Carboxyhemoglobin Sodium Potassium Chloride Carbon Dioxide BUN Creatinine Glucose POC Glucose 168 H 178 H Lactic Acid Calcium Magnesium Ferritin Total Bilirubin Direct Bilirubin AST ALT Alkaline Phosphatase Lactate Dehydrogenase C-Reactive Protein Total Protein Albumin Triglycerides Lipase Arterial Blood Glucose 256 H Arterial Blood Ionized Calcium Urine WBC (Auto) Coronavirus (PCR) SARS-CoV-2 IgG Ab Crossmatch 06/01/20 06/01/20 06/01/20 05:01 07:47 07:47 WBC 14.4 H RBC 3.46 L Hgb 11.1 L Hct 34.3 L MCV 99 H MCH MCHC RDW Lymph % (Auto) Lymph # (Auto) [place] # (Auto) Baso # (Auto) Seg Neutrophils % Seg Neuts % (Manual) 86.0 H Lymphocytes % (Manual) 9.0 L Nucleated RBC % Seg Neutrophils # Seg Neutrophils # Man 12.4 H Lymphocytes # (Manual) Monocytes # (Manual) Eosinophils # (Manual) PT INR APTT D-Dimer Heparin Anti-Xa Level ABG pH POC ABG pCO2 POC ABG pO2 ABG pO2 ABG HCO3 ABG O2 Saturation ABG Base Excess ABG Hemoglobin ABG Oxyhemoglobin ABG Sodium ABG Potassium ABG Chloride ABG Glucose Oxyhemoglobin Carboxyhemoglobin Sodium Potassium Chloride Carbon Dioxide BUN Creatinine Glucose POC Glucose 197 H Lactic Acid Calcium Magnesium Ferritin Total Bilirubin Direct Bilirubin AST ALT Alkaline Phosphatase Lactate Dehydrogenase C-Reactive Protein Total Protein Albumin Triglycerides 244 H Lipase Arterial Blood Glucose Arterial Blood Ionized Calcium Urine WBC (Auto) Coronavirus (PCR) SARS-CoV-2 IgG Ab Crossmatch 06/01/20 06/01/20 06/01/20 07:47 11:46 18:15 WBC RBC Hgb Hct MCV MCH MCHC RDW Lymph % (Auto) Lymph # (Auto) [place] # (Auto) Baso # (Auto) Seg Neutrophils % Seg Neuts % (Manual) Lymphocytes % (Manual) Nucleated RBC % Seg Neutrophils # Seg Neutrophils # Man Lymphocytes # (Manual) Monocytes # (Manual) Eosinophils # (Manual) PT INR APTT D-Dimer Heparin Anti-Xa Level ABG pH POC ABG pCO2 POC ABG pO2 ABG pO2 ABG HCO3 ABG O2 Saturation ABG Base Excess ABG Hemoglobin ABG Oxyhemoglobin ABG Sodium ABG Potassium ABG Chloride ABG Glucose Oxyhemoglobin Carboxyhemoglobin Sodium Potassium Chloride 95.4 L Carbon Dioxide 35 H BUN 30 H Creatinine 0.5 L Glucose 214 H POC Glucose 181 H 221 H Lactic Acid Calcium Magnesium Ferritin Total Bilirubin Direct Bilirubin AST 54 H ALT 235 H Alkaline Phosphatase Lactate Dehydrogenase C-Reactive Protein Total Protein Albumin 2.9 L Triglycerides Lipase Arterial Blood Glucose Arterial Blood Ionized Calcium Urine WBC (Auto) Coronavirus (PCR) SARS-CoV-2 IgG Ab Crossmatch 06/01/20 06/02/20 06/02/20 23:12 04:00 05:31 WBC RBC Hgb Hct MCV MCH MCHC RDW Lymph % (Auto) Lymph # (Auto) [place] # (Auto) Baso # (Auto) Seg Neutrophils % Seg Neuts % (Manual) Lymphocytes % (Manual) Nucleated RBC % Seg Neutrophils # Seg Neutrophils # Man Lymphocytes # (Manual) Monocytes # (Manual) Eosinophils # (Manual) PT INR APTT D-Dimer Heparin Anti-Xa Level ABG pH 7.465 H POC ABG pCO2 POC ABG pO2 ABG pO2 203.4 H ABG HCO3 41.2 H ABG O2 Saturation 99.3 H ABG Base Excess 15.1 H ABG Hemoglobin 11.5 L ABG Oxyhemoglobin ABG Sodium ABG Potassium ABG Chloride ABG Glucose Oxyhemoglobin Carboxyhemoglobin Sodium Potassium Chloride Carbon Dioxide BUN Creatinine Glucose POC Glucose 197 H 184 H Lactic Acid Calcium Magnesium Ferritin Total Bilirubin Direct Bilirubin AST ALT Alkaline Phosphatase Lactate Dehydrogenase C-Reactive Protein Total Protein Albumin Triglycerides Lipase Arterial Blood Glucose Arterial Blood Ionized Calcium Urine WBC (Auto) Coronavirus (PCR) SARS-CoV-2 IgG Ab Crossmatch 06/02/20 06/02/20 06/02/20 11:49 18:06 23:00 WBC RBC Hgb Hct MCV MCH MCHC RDW Lymph % (Auto) Lymph # (Auto) [place] # (Auto) Baso # (Auto) Seg Neutrophils % Seg Neuts % (Manual) Lymphocytes % (Manual) Nucleated RBC % Seg Neutrophils # Seg Neutrophils # Man Lymphocytes # (Manual) Monocytes # (Manual) Eosinophils # (Manual) PT INR APTT D-Dimer Heparin Anti-Xa Level ABG pH POC ABG pCO2 POC ABG pO2 ABG pO2 ABG HCO3 ABG O2 Saturation ABG Base Excess ABG Hemoglobin ABG Oxyhemoglobin ABG Sodium ABG Potassium ABG Chloride ABG Glucose Oxyhemoglobin Carboxyhemoglobin Sodium Potassium Chloride Carbon Dioxide BUN Creatinine Glucose POC Glucose 195 H 177 H 228 H Lactic Acid Calcium Magnesium Ferritin Total Bilirubin Direct Bilirubin AST ALT Alkaline Phosphatase Lactate Dehydrogenase C-Reactive Protein Total Protein Albumin Triglycerides Lipase Arterial Blood Glucose Arterial Blood Ionized Calcium Urine WBC (Auto) Coronavirus (PCR) SARS-CoV-2 IgG Ab Crossmatch 06/03/20 06/03/20 06/03/20 03:58 05:19 12:21 WBC RBC Hgb Hct MCV MCH MCHC RDW Lymph % (Auto) Lymph # (Auto) [place] # (Auto) Baso # (Auto) Seg Neutrophils % Seg Neuts % (Manual) Lymphocytes % (Manual) Nucleated RBC % Seg Neutrophils # Seg Neutrophils # Man Lymphocytes # (Manual) Monocytes # (Manual) Eosinophils # (Manual) PT INR APTT D-Dimer Heparin Anti-Xa Level ABG pH POC ABG pCO2 POC ABG pO2 ABG pO2 171.0 H ABG HCO3 42.8 H ABG O2 Saturation ABG Base Excess 15.6 H ABG Hemoglobin 12.3 L ABG Oxyhemoglobin ABG Sodium ABG Potassium ABG Chloride ABG Glucose Oxyhemoglobin Carboxyhemoglobin Sodium Potassium Chloride Carbon Dioxide BUN Creatinine Glucose POC Glucose 122 H 207 H Lactic Acid Calcium Magnesium Ferritin Total Bilirubin Direct Bilirubin AST ALT Alkaline Phosphatase Lactate Dehydrogenase C-Reactive Protein Total Protein Albumin Triglycerides Lipase Arterial Blood Glucose Arterial Blood Ionized Calcium Urine WBC (Auto) Coronavirus (PCR) SARS-CoV-2 IgG Ab Crossmatch 06/03/20 06/03/20 06/04/20 17:27 23:50 03:55 WBC RBC Hgb Hct MCV MCH MCHC RDW Lymph % (Auto) Lymph # (Auto) [place] # (Auto) Baso # (Auto) Seg Neutrophils % Seg Neuts % (Manual) Lymphocytes % (Manual) Nucleated RBC % Seg Neutrophils # Seg Neutrophils # Man Lymphocytes # (Manual) Monocytes # (Manual) Eosinophils # (Manual) PT INR APTT D-Dimer Heparin Anti-Xa Level ABG pH POC ABG pCO2 POC ABG pO2 ABG pO2 117.2 H ABG HCO3 42.4 H ABG O2 Saturation ABG Base Excess 15.3 H ABG Hemoglobin 10.5 L ABG Oxyhemoglobin ABG Sodium ABG Potassium ABG Chloride ABG Glucose Oxyhemoglobin Carboxyhemoglobin Sodium Potassium Chloride Carbon Dioxide BUN Creatinine Glucose POC Glucose 157 H 214 H Lactic Acid Calcium Magnesium Ferritin Total Bilirubin Direct Bilirubin AST ALT Alkaline Phosphatase Lactate Dehydrogenase C-Reactive Protein Total Protein Albumin Triglycerides Lipase Arterial Blood Glucose Arterial Blood Ionized Calcium Urine WBC (Auto) Coronavirus (PCR) SARS-CoV-2 IgG Ab Crossmatch 06/04/20 06/04/20 06/04/20 05:49 11:41 17:30 WBC RBC Hgb Hct MCV MCH MCHC RDW Lymph % (Auto) Lymph # (Auto) [place] # (Auto) Baso # (Auto) Seg Neutrophils % Seg Neuts % (Manual) Lymphocytes % (Manual) Nucleated RBC % Seg Neutrophils # Seg Neutrophils # Man Lymphocytes # (Manual) Monocytes # (Manual) Eosinophils # (Manual) PT INR APTT D-Dimer Heparin Anti-Xa Level ABG pH POC ABG pCO2 POC ABG pO2 ABG pO2 ABG HCO3 ABG O2 Saturation ABG Base Excess ABG Hemoglobin ABG Oxyhemoglobin ABG Sodium ABG Potassium ABG Chloride ABG Glucose Oxyhemoglobin Carboxyhemoglobin Sodium Potassium Chloride Carbon Dioxide BUN Creatinine Glucose POC Glucose 149 H 233 H 156 H Lactic Acid Calcium Magnesium Ferritin Total Bilirubin Direct Bilirubin AST ALT Alkaline Phosphatase Lactate Dehydrogenase C-Reactive Protein Total Protein Albumin Triglycerides Lipase Arterial Blood Glucose Arterial Blood Ionized Calcium Urine WBC (Auto) Coronavirus (PCR) SARS-CoV-2 IgG Ab Crossmatch 06/04/20 06/04/20 06/04/20 19:01 20:53 23:41 WBC RBC 3.18 L Hgb 10.8 L Hct 31.8 L MCV 100 H MCH 34 H MCHC RDW Lymph % (Auto) Lymph # (Auto) [place] # (Auto) Baso # (Auto) Seg Neutrophils % Seg Neuts % (Manual) 86.0 H Lymphocytes % (Manual) 10.0 L Nucleated RBC % 1.0 H Seg Neutrophils # Seg Neutrophils # Man 8.5 H Lymphocytes # (Manual) 1.0 L Monocytes # (Manual) Eosinophils # (Manual) PT INR APTT D-Dimer Heparin Anti-Xa Level ABG pH POC ABG pCO2 POC ABG pO2 ABG pO2 ABG HCO3 ABG O2 Saturation ABG Base Excess ABG Hemoglobin ABG Oxyhemoglobin ABG Sodium ABG Potassium ABG Chloride ABG Glucose Oxyhemoglobin Carboxyhemoglobin Sodium Potassium 3.4 L D Chloride 96.5 L Carbon Dioxide 41 H* BUN 27 H Creatinine 0.5 L Glucose 173 H POC Glucose 217 H Lactic Acid Calcium Magnesium Ferritin Total Bilirubin Direct Bilirubin AST ALT Alkaline Phosphatase Lactate Dehydrogenase C-Reactive Protein Total Protein Albumin Triglycerides Lipase Arterial Blood Glucose Arterial Blood Ionized Calcium Urine WBC (Auto) Coronavirus (PCR) SARS-CoV-2 IgG Ab Crossmatch 06/05/20 06/05/20 06/05/20 06:05 11:54 12:35 WBC RBC Hgb Hct MCV MCH MCHC RDW Lymph % (Auto) Lymph # (Auto) [place] # (Auto) Baso # (Auto) Seg Neutrophils % Seg Neuts % (Manual) Lymphocytes % (Manual) Nucleated RBC % Seg Neutrophils # Seg Neutrophils # Man Lymphocytes # (Manual) Monocytes # (Manual) Eosinophils # (Manual) PT INR APTT D-Dimer Heparin Anti-Xa Level ABG pH POC ABG pCO2 POC ABG pO2 ABG pO2 127.9 H ABG HCO3 41.1 H ABG O2 Saturation ABG Base Excess 13.0 H ABG Hemoglobin 13.4 L ABG Oxyhemoglobin ABG Sodium ABG Potassium ABG Chloride ABG Glucose Oxyhemoglobin Carboxyhemoglobin Sodium Potassium Chloride Carbon Dioxide BUN Creatinine Glucose POC Glucose 137 H 211 H Lactic Acid Calcium Magnesium Ferritin Total Bilirubin Direct Bilirubin AST ALT Alkaline Phosphatase Lactate Dehydrogenase C-Reactive Protein Total Protein Albumin Triglycerides Lipase Arterial Blood Glucose Arterial Blood Ionized Calcium Urine WBC (Auto) Coronavirus (PCR) SARS-CoV-2 IgG Ab Crossmatch 06/05/20 06/05/20 06/06/20 17:03 23:49 04:42 WBC RBC Hgb Hct MCV MCH MCHC RDW Lymph % (Auto) Lymph # (Auto) [place] # (Auto) Baso # (Auto) Seg Neutrophils % Seg Neuts % (Manual) Lymphocytes % (Manual) Nucleated RBC % Seg Neutrophils # Seg Neutrophils # Man Lymphocytes # (Manual) Monocytes # (Manual) Eosinophils # (Manual) PT INR APTT D-Dimer Heparin Anti-Xa Level ABG pH POC ABG pCO2 56.1 H POC ABG pO2 52.5 L ABG pO2 ABG HCO3 ABG O2 Saturation ABG Base Excess ABG Hemoglobin 11.7 L ABG Oxyhemoglobin ABG Sodium ABG Potassium 3.3 L ABG Chloride 95.0 L ABG Glucose 156 H Oxyhemoglobin Carboxyhemoglobin Sodium Potassium Chloride Carbon Dioxide BUN Creatinine Glucose POC Glucose 159 H 194 H Lactic Acid Calcium Magnesium Ferritin Total Bilirubin Direct Bilirubin AST ALT Alkaline Phosphatase Lactate Dehydrogenase C-Reactive Protein Total Protein Albumin Triglycerides Lipase Arterial Blood Glucose 156 H Arterial Blood Ionized Calcium Urine WBC (Auto) Coronavirus (PCR) SARS-CoV-2 IgG Ab Crossmatch 06/06/20 06/06/20 06/06/20 05:57 12:06 17:38 WBC RBC Hgb Hct MCV MCH MCHC RDW Lymph % (Auto) Lymph # (Auto) [place] # (Auto) Baso # (Auto) Seg Neutrophils % Seg Neuts % (Manual) Lymphocytes % (Manual) Nucleated RBC % Seg Neutrophils # Seg Neutrophils # Man Lymphocytes # (Manual) Monocytes # (Manual) Eosinophils # (Manual) PT INR APTT D-Dimer Heparin Anti-Xa Level ABG pH POC ABG pCO2 POC ABG pO2 ABG pO2 ABG HCO3 ABG O2 Saturation ABG Base Excess ABG Hemoglobin ABG Oxyhemoglobin ABG Sodium ABG Potassium ABG Chloride ABG Glucose Oxyhemoglobin Carboxyhemoglobin Sodium Potassium Chloride Carbon Dioxide BUN Creatinine Glucose POC Glucose 144 H 230 H 162 H Lactic Acid Calcium Magnesium Ferritin Total Bilirubin Direct Bilirubin AST ALT Alkaline Phosphatase Lactate Dehydrogenase C-Reactive Protein Total Protein Albumin Triglycerides Lipase Arterial Blood Glucose Arterial Blood Ionized Calcium Urine WBC (Auto) Coronavirus (PCR) SARS-CoV-2 IgG Ab Crossmatch 06/06/20 06/07/20 06/07/20 23:50 04:34 06:03 WBC RBC Hgb Hct MCV MCH MCHC RDW Lymph % (Auto) Lymph # (Auto) [place] # (Auto) Baso # (Auto) Seg Neutrophils % Seg Neuts % (Manual) Lymphocytes % (Manual) Nucleated RBC % Seg Neutrophils # Seg Neutrophils # Man Lymphocytes # (Manual) Monocytes # (Manual) Eosinophils # (Manual) PT INR APTT D-Dimer Heparin Anti-Xa Level ABG pH 7.511 H POC ABG pCO2 53.5 H POC ABG pO2 114.5 H ABG pO2 ABG HCO3 ABG O2 Saturation ABG Base Excess ABG Hemoglobin 9.4 L ABG Oxyhemoglobin ABG Sodium 134.5 L ABG Potassium ABG Chloride 94.0 L ABG Glucose 186 H Oxyhemoglobin Carboxyhemoglobin Sodium Potassium Chloride Carbon Dioxide BUN Creatinine Glucose POC Glucose 181 H 155 H Lactic Acid Calcium Magnesium Ferritin Total Bilirubin Direct Bilirubin AST ALT Alkaline Phosphatase Lactate Dehydrogenase C-Reactive Protein Total Protein Albumin Triglycerides Lipase Arterial Blood Glucose 186 H Arterial Blood Ionized Calcium 4.5 L Urine WBC (Auto) Coronavirus (PCR) SARS-CoV-2 IgG Ab Crossmatch 06/07/20 06/07/20 06/07/20 13:41 14:58 14:58 WBC RBC 2.72 L Hgb 9.3 L Hct 27.2 L MCV 100 H MCH 34 H MCHC RDW Lymph % (Auto) Lymph # (Auto) [place] # (Auto) Baso # (Auto) Seg Neutrophils % Seg Neuts % (Manual) Lymphocytes % (Manual) Nucleated RBC % Seg Neutrophils # Seg Neutrophils # Man Lymphocytes # (Manual) Monocytes # (Manual) Eosinophils # (Manual) PT INR APTT D-Dimer Heparin Anti-Xa Level ABG pH POC ABG pCO2 POC ABG pO2 ABG pO2 ABG HCO3 ABG O2 Saturation ABG Base Excess ABG Hemoglobin ABG Oxyhemoglobin ABG Sodium ABG Potassium ABG Chloride ABG Glucose Oxyhemoglobin Carboxyhemoglobin Sodium Potassium Chloride 93.5 L Carbon Dioxide 39 H BUN 22 H Creatinine 0.4 L Glucose 188 H POC Glucose 201 H Lactic Acid Calcium Magnesium Ferritin Total Bilirubin Direct Bilirubin AST 61 H ALT 273 H Alkaline Phosphatase Lactate Dehydrogenase C-Reactive Protein Total Protein 5.9 L Albumin 2.7 L Triglycerides Lipase Arterial Blood Glucose Arterial Blood Ionized Calcium Urine WBC (Auto) Coronavirus (PCR) SARS-CoV-2 IgG Ab Crossmatch 06/07/20 06/08/20 06/08/20 23:18 05:31 12:07 WBC RBC Hgb Hct MCV MCH MCHC RDW Lymph % (Auto) Lymph # (Auto) [place] # (Auto) Baso # (Auto) Seg Neutrophils % Seg Neuts % (Manual) Lymphocytes % (Manual) Nucleated RBC % Seg Neutrophils # Seg Neutrophils # Man Lymphocytes # (Manual) Monocytes # (Manual) Eosinophils # (Manual) PT INR APTT D-Dimer Heparin Anti-Xa Level ABG pH POC ABG pCO2 POC ABG pO2 ABG pO2 ABG HCO3 ABG O2 Saturation ABG Base Excess ABG Hemoglobin ABG Oxyhemoglobin ABG Sodium ABG Potassium ABG Chloride ABG Glucose Oxyhemoglobin Carboxyhemoglobin Sodium Potassium Chloride Carbon Dioxide BUN Creatinine Glucose POC Glucose 214 H 129 H 179 H Lactic Acid Calcium Magnesium Ferritin Total Bilirubin Direct Bilirubin AST ALT Alkaline Phosphatase Lactate Dehydrogenase C-Reactive Protein Total Protein Albumin Triglycerides Lipase Arterial Blood Glucose Arterial Blood Ionized Calcium Urine WBC (Auto) Coronavirus (PCR) SARS-CoV-2 IgG Ab Crossmatch 06/08/20 06/08/20 06/09/20 18:18 23:35 05:42 WBC RBC Hgb Hct MCV MCH MCHC RDW Lymph % (Auto) Lymph # (Auto) [place] # (Auto) Baso # (Auto) Seg Neutrophils % Seg Neuts % (Manual) Lymphocytes % (Manual) Nucleated RBC % Seg Neutrophils # Seg Neutrophils # Man Lymphocytes # (Manual) Monocytes # (Manual) Eosinophils # (Manual) PT INR APTT D-Dimer Heparin Anti-Xa Level ABG pH POC ABG pCO2 POC ABG pO2 ABG pO2 ABG HCO3 ABG O2 Saturation ABG Base Excess ABG Hemoglobin ABG Oxyhemoglobin ABG Sodium ABG Potassium ABG Chloride ABG Glucose Oxyhemoglobin Carboxyhemoglobin Sodium Potassium Chloride Carbon Dioxide BUN Creatinine Glucose POC Glucose 172 H 177 H 137 H Lactic Acid Calcium Magnesium Ferritin Total Bilirubin Direct Bilirubin AST ALT Alkaline Phosphatase Lactate Dehydrogenase C-Reactive Protein Total Protein Albumin Triglycerides Lipase Arterial Blood Glucose Arterial Blood Ionized Calcium Urine WBC (Auto) Coronavirus (PCR) SARS-CoV-2 IgG Ab Crossmatch 06/09/20 06/09/20 06/09/20 06:20 07:55 07:55 WBC 12.4 H RBC 3.26 L Hgb 11.1 L Hct 33.4 L D MCV 102 H MCH 34 H MCHC RDW Lymph % (Auto) Lymph # (Auto) [place] # (Auto) Baso # (Auto) Seg Neutrophils % Seg Neuts % (Manual) Lymphocytes % (Manual) Nucleated RBC % Seg Neutrophils # Seg Neutrophils # Man Lymphocytes # (Manual) Monocytes # (Manual) Eosinophils # (Manual) PT INR APTT D-Dimer Heparin Anti-Xa Level ABG pH 7.466 H POC ABG pCO2 50.7 H POC ABG pO2 53.0 L ABG pO2 ABG HCO3 ABG O2 Saturation ABG Base Excess ABG Hemoglobin ABG Oxyhemoglobin ABG Sodium ABG Potassium 2.9 L ABG Chloride 93.0 L ABG Glucose 138 H Oxyhemoglobin Carboxyhemoglobin Sodium Potassium 3.0 L Chloride 92.3 L Carbon Dioxide 37 H BUN 21 H Creatinine 0.6 L Glucose 120 H POC Glucose Lactic Acid Calcium Magnesium Ferritin Total Bilirubin Direct Bilirubin AST ALT Alkaline Phosphatase Lactate Dehydrogenase C-Reactive Protein Total Protein Albumin Triglycerides Lipase Arterial Blood Glucose 138 H Arterial Blood Ionized Calcium 4.5 L Urine WBC (Auto) Coronavirus (PCR) SARS-CoV-2 IgG Ab Crossmatch 06/09/20 06/09/20 06/10/20 11:22 18:32 04:46 WBC RBC Hgb Hct MCV MCH MCHC RDW Lymph % (Auto) Lymph # (Auto) [place] # (Auto) Baso # (Auto) Seg Neutrophils % Seg Neuts % (Manual) Lymphocytes % (Manual) Nucleated RBC % Seg Neutrophils # Seg Neutrophils # Man Lymphocytes # (Manual) Monocytes # (Manual) Eosinophils # (Manual) PT INR APTT D-Dimer Heparin Anti-Xa Level ABG pH 7.501 H POC ABG pCO2 POC ABG pO2 126.5 H ABG pO2 ABG HCO3 ABG O2 Saturation ABG Base Excess ABG Hemoglobin 10.3 L ABG Oxyhemoglobin ABG Sodium ABG Potassium ABG Chloride ABG Glucose 220 H Oxyhemoglobin Carboxyhemoglobin Sodium Potassium Chloride Carbon Dioxide BUN Creatinine Glucose POC Glucose 117 H 121 H Lactic Acid Calcium Magnesium Ferritin Total Bilirubin Direct Bilirubin AST ALT Alkaline Phosphatase Lactate Dehydrogenase C-Reactive Protein Total Protein Albumin Triglycerides Lipase Arterial Blood Glucose 220 H Arterial Blood Ionized Calcium Urine WBC (Auto) Coronavirus (PCR) SARS-CoV-2 IgG Ab Crossmatch 06/10/20 06/10/20 06/10/20 05:30 09:38 12:03 WBC RBC Hgb Hct MCV MCH MCHC RDW Lymph % (Auto) Lymph # (Auto) [place] # (Auto) Baso # (Auto) Seg Neutrophils % Seg Neuts % (Manual) Lymphocytes % (Manual) Nucleated RBC % Seg Neutrophils # Seg Neutrophils # Man Lymphocytes # (Manual) Monocytes # (Manual) Eosinophils # (Manual) PT INR APTT D-Dimer Heparin Anti-Xa Level ABG pH POC ABG pCO2 POC ABG pO2 ABG pO2 ABG HCO3 ABG O2 Saturation ABG Base Excess ABG Hemoglobin ABG Oxyhemoglobin ABG Sodium ABG Potassium ABG Chloride ABG Glucose Oxyhemoglobin Carboxyhemoglobin Sodium Potassium Chloride Carbon Dioxide BUN Creatinine Glucose POC Glucose 181 H 204 H Lactic Acid Calcium Magnesium Ferritin Total Bilirubin Direct Bilirubin AST ALT Alkaline Phosphatase Lactate Dehydrogenase C-Reactive Protein Total Protein Albumin Triglycerides 738 H Lipase Arterial Blood Glucose Arterial Blood Ionized Calcium Urine WBC (Auto) Coronavirus (PCR) SARS-CoV-2 IgG Ab Crossmatch 06/10/20 06/11/20 06/11/20 17:17 00:04 04:38 WBC RBC Hgb Hct MCV MCH MCHC RDW Lymph % (Auto) Lymph # (Auto) [place] # (Auto) Baso # (Auto) Seg Neutrophils % Seg Neuts % (Manual) Lymphocytes % (Manual) Nucleated RBC % Seg Neutrophils # Seg Neutrophils # Man Lymphocytes # (Manual) Monocytes # (Manual) Eosinophils # (Manual) PT INR APTT D-Dimer Heparin Anti-Xa Level ABG pH 7.479 H POC ABG pCO2 POC ABG pO2 76.7 L ABG pO2 ABG HCO3 ABG O2 Saturation ABG Base Excess ABG Hemoglobin 9.8 L ABG Oxyhemoglobin ABG Sodium 135.8 L ABG Potassium ABG Chloride ABG Glucose 238 H Oxyhemoglobin Carboxyhemoglobin Sodium Potassium Chloride Carbon Dioxide BUN Creatinine Glucose POC Glucose 156 H 178 H Lactic Acid Calcium Magnesium Ferritin Total Bilirubin Direct Bilirubin AST ALT Alkaline Phosphatase Lactate Dehydrogenase C-Reactive Protein Total Protein Albumin Triglycerides Lipase Arterial Blood Glucose 238 H Arterial Blood Ionized Calcium Urine WBC (Auto) Coronavirus (PCR) SARS-CoV-2 IgG Ab Crossmatch 06/11/20 06/11/20 06/11/20 05:21 06:52 11:50 WBC RBC Hgb Hct MCV MCH MCHC RDW Lymph % (Auto) Lymph # (Auto) [place] # (Auto) Baso # (Auto) Seg Neutrophils % Seg Neuts % (Manual) Lymphocytes % (Manual) Nucleated RBC % Seg Neutrophils # Seg Neutrophils # Man Lymphocytes # (Manual) Monocytes # (Manual) Eosinophils # (Manual) PT INR APTT D-Dimer Heparin Anti-Xa Level ABG pH POC ABG pCO2 POC ABG pO2 ABG pO2 ABG HCO3 ABG O2 Saturation ABG Base Excess ABG Hemoglobin ABG Oxyhemoglobin ABG Sodium ABG Potassium ABG Chloride ABG Glucose Oxyhemoglobin Carboxyhemoglobin Sodium Potassium Chloride Carbon Dioxide BUN Creatinine Glucose POC Glucose 215 H 187 H Lactic Acid Calcium Magnesium Ferritin Total Bilirubin Direct Bilirubin AST ALT Alkaline Phosphatase Lactate Dehydrogenase C-Reactive Protein Total Protein Albumin Triglycerides 331 H Lipase Arterial Blood Glucose Arterial Blood Ionized Calcium Urine WBC (Auto) Coronavirus (PCR) SARS-CoV-2 IgG Ab Crossmatch 06/11/20 06/11/20 06/12/20 17:49 23:35 04:52 WBC RBC Hgb Hct MCV MCH MCHC RDW Lymph % (Auto) Lymph # (Auto) [place] # (Auto) Baso # (Auto) Seg Neutrophils % Seg Neuts % (Manual) Lymphocytes % (Manual) Nucleated RBC % Seg Neutrophils # Seg Neutrophils # Man Lymphocytes # (Manual) Monocytes # (Manual) Eosinophils # (Manual) PT INR APTT D-Dimer Heparin Anti-Xa Level ABG pH 7.486 H POC ABG pCO2 POC ABG pO2 ABG pO2 ABG HCO3 ABG O2 Saturation ABG Base Excess ABG Hemoglobin 9.4 L ABG Oxyhemoglobin ABG Sodium ABG Potassium 3.2 L ABG Chloride ABG Glucose 209 H Oxyhemoglobin Carboxyhemoglobin Sodium Potassium Chloride Carbon Dioxide BUN Creatinine Glucose POC Glucose 211 H 200 H Lactic Acid Calcium Magnesium Ferritin Total Bilirubin Direct Bilirubin AST ALT Alkaline Phosphatase Lactate Dehydrogenase C-Reactive Protein Total Protein Albumin Triglycerides Lipase Arterial Blood Glucose 209 H Arterial Blood Ionized Calcium Urine WBC (Auto) Coronavirus (PCR) SARS-CoV-2 IgG Ab Crossmatch 06/12/20 06/12/20 06/12/20 05:13 11:47 18:33 WBC RBC Hgb Hct MCV MCH MCHC RDW Lymph % (Auto) Lymph # (Auto) [place] # (Auto) Baso # (Auto) Seg Neutrophils % Seg Neuts % (Manual) Lymphocytes % (Manual) Nucleated RBC % Seg Neutrophils # Seg Neutrophils # Man Lymphocytes # (Manual) Monocytes # (Manual) Eosinophils # (Manual) PT INR APTT D-Dimer Heparin Anti-Xa Level ABG pH POC ABG pCO2 POC ABG pO2 ABG pO2 ABG HCO3 ABG O2 Saturation ABG Base Excess ABG Hemoglobin ABG Oxyhemoglobin ABG Sodium ABG Potassium ABG Chloride ABG Glucose Oxyhemoglobin Carboxyhemoglobin Sodium Potassium Chloride Carbon Dioxide BUN Creatinine Glucose POC Glucose 174 H 214 H 194 H Lactic Acid Calcium Magnesium Ferritin Total Bilirubin Direct Bilirubin AST ALT Alkaline Phosphatase Lactate Dehydrogenase C-Reactive Protein Total Protein Albumin Triglycerides Lipase Arterial Blood Glucose Arterial Blood Ionized Calcium Urine WBC (Auto) Coronavirus (PCR) SARS-CoV-2 IgG Ab Crossmatch 06/12/20 06/13/20 06/13/20 23:49 05:41 12:30 WBC RBC Hgb Hct MCV MCH MCHC RDW Lymph % (Auto) Lymph # (Auto) [place] # (Auto) Baso # (Auto) Seg Neutrophils % Seg Neuts % (Manual) Lymphocytes % (Manual) Nucleated RBC % Seg Neutrophils # Seg Neutrophils # Man Lymphocytes # (Manual) Monocytes # (Manual) Eosinophils # (Manual) PT INR APTT D-Dimer Heparin Anti-Xa Level ABG pH POC ABG pCO2 POC ABG pO2 ABG pO2 ABG HCO3 ABG O2 Saturation ABG Base Excess ABG Hemoglobin ABG Oxyhemoglobin ABG Sodium ABG Potassium ABG Chloride ABG Glucose Oxyhemoglobin Carboxyhemoglobin Sodium Potassium Chloride Carbon Dioxide BUN Creatinine Glucose POC Glucose 160 H 150 H 181 H Lactic Acid Calcium Magnesium Ferritin Total Bilirubin Direct Bilirubin AST ALT Alkaline Phosphatase Lactate Dehydrogenase C-Reactive Protein Total Protein Albumin Triglycerides Lipase Arterial Blood Glucose Arterial Blood Ionized Calcium Urine WBC (Auto) Coronavirus (PCR) SARS-CoV-2 IgG Ab Crossmatch 06/13/20 06/13/20 06/13/20 14:14 17:48 23:27 WBC 12.8 H RBC 2.33 L Hgb 8.0 L Hct 23.3 L MCV 100 H MCH 34 H MCHC RDW 15.7 H Lymph % (Auto) Lymph # (Auto) [place] # (Auto) Baso # (Auto) Seg Neutrophils % Seg Neuts % (Manual) 85.0 H Lymphocytes % (Manual) 10.0 L Nucleated RBC % Seg Neutrophils # Seg Neutrophils # Man 10.9 H Lymphocytes # (Manual) Monocytes # (Manual) Eosinophils # (Manual) PT INR APTT D-Dimer Heparin Anti-Xa Level ABG pH POC ABG pCO2 POC ABG pO2 ABG pO2 ABG HCO3 ABG O2 Saturation ABG Base Excess ABG Hemoglobin ABG Oxyhemoglobin ABG Sodium ABG Potassium ABG Chloride ABG Glucose Oxyhemoglobin Carboxyhemoglobin Sodium Potassium Chloride Carbon Dioxide BUN Creatinine Glucose POC Glucose 173 H 154 H Lactic Acid Calcium Magnesium Ferritin Total Bilirubin Direct Bilirubin AST ALT Alkaline Phosphatase Lactate Dehydrogenase C-Reactive Protein Total Protein Albumin Triglycerides Lipase Arterial Blood Glucose Arterial Blood Ionized Calcium Urine WBC (Auto) Coronavirus (PCR) SARS-CoV-2 IgG Ab Crossmatch 06/14/20 06/14/20 06/14/20 03:58 05:21 07:15 WBC 26.2 H RBC 2.97 L Hgb 9.7 L Hct 29.9 L D MCV 101 H MCH 33 H MCHC RDW 15.3 H Lymph % (Auto) Lymph # (Auto) [place] # (Auto) Baso # (Auto) Seg Neutrophils % Seg Neuts % (Manual) 79.0 H Lymphocytes % (Manual) 5.0 L Nucleated RBC % 3.0 H Seg Neutrophils # Seg Neutrophils # Man 20.7 H Lymphocytes # (Manual) Monocytes # (Manual) 1.3 H Eosinophils # (Manual) PT INR APTT D-Dimer Heparin Anti-Xa Level ABG pH POC ABG pCO2 51.5 H POC ABG pO2 70.0 L ABG pO2 ABG HCO3 ABG O2 Saturation ABG Base Excess ABG Hemoglobin 10.1 L ABG Oxyhemoglobin ABG Sodium 131.5 L ABG Potassium 3.1 L ABG Chloride 93.0 L ABG Glucose 188 H Oxyhemoglobin Carboxyhemoglobin Sodium Potassium Chloride Carbon Dioxide BUN Creatinine Glucose POC Glucose 147 H Lactic Acid Calcium Magnesium Ferritin Total Bilirubin Direct Bilirubin AST ALT Alkaline Phosphatase Lactate Dehydrogenase C-Reactive Protein Total Protein Albumin Triglycerides Lipase Arterial Blood Glucose 188 H Arterial Blood Ionized Calcium Urine WBC (Auto) Coronavirus (PCR) SARS-CoV-2 IgG Ab Crossmatch 06/14/20 06/14/20 06/14/20 07:15 11:30 11:50 WBC RBC Hgb Hct MCV MCH MCHC RDW Lymph % (Auto) Lymph # (Auto) [place] # (Auto) Baso # (Auto) Seg Neutrophils % Seg Neuts % (Manual) Lymphocytes % (Manual) Nucleated RBC % Seg Neutrophils # Seg Neutrophils # Man Lymphocytes # (Manual) Monocytes # (Manual) Eosinophils # (Manual) PT INR APTT D-Dimer Heparin Anti-Xa Level ABG pH POC ABG pCO2 POC ABG pO2 ABG pO2 ABG HCO3 ABG O2 Saturation ABG Base Excess ABG Hemoglobin ABG Oxyhemoglobin ABG Sodium ABG Potassium ABG Chloride ABG Glucose Oxyhemoglobin Carboxyhemoglobin Sodium 135 L Potassium 3.5 L Chloride 90.4 L Carbon Dioxide 38 H BUN Creatinine 0.5 L Glucose 190 H POC Glucose 176 H Lactic Acid Calcium Magnesium Ferritin 1496.0 H Total Bilirubin Direct Bilirubin AST ALT 81 H Alkaline Phosphatase Lactate Dehydrogenase C-Reactive Protein Total Protein Albumin 2.9 L Triglycerides Lipase Arterial Blood Glucose Arterial Blood Ionized Calcium Urine WBC (Auto) Coronavirus (PCR) SARS-CoV-2 IgG Ab Crossmatch 06/14/20 06/15/20 06/15/20 23:31 04:00 05:00 WBC RBC Hgb Hct MCV MCH MCHC RDW Lymph % (Auto) Lymph # (Auto) [place] # (Auto) Baso # (Auto) Seg Neutrophils % Seg Neuts % (Manual) Lymphocytes % (Manual) Nucleated RBC % Seg Neutrophils # Seg Neutrophils # Man Lymphocytes # (Manual) Monocytes # (Manual) Eosinophils # (Manual) PT INR APTT D-Dimer Heparin Anti-Xa Level ABG pH POC ABG pCO2 POC ABG pO2 ABG pO2 ABG HCO3 ABG O2 Saturation ABG Base Excess ABG Hemoglobin ABG Oxyhemoglobin ABG Sodium ABG Potassium ABG Chloride ABG Glucose Oxyhemoglobin Carboxyhemoglobin Sodium 133 L Potassium Chloride 91.1 L Carbon Dioxide 34 H BUN Creatinine 0.4 L Glucose 159 H POC Glucose 200 H Lactic Acid Calcium Magnesium Ferritin Total Bilirubin 2.00 H Direct Bilirubin AST 47 H ALT 77 H Alkaline Phosphatase Lactate Dehydrogenase C-Reactive Protein Total Protein Albumin 2.6 L Triglycerides 152 H Lipase Arterial Blood Glucose Arterial Blood Ionized Calcium Urine WBC (Auto) Coronavirus (PCR) SARS-CoV-2 IgG Ab Crossmatch 06/15/20 06/15/20 06/15/20 05:35 06:27 11:38 WBC RBC Hgb Hct MCV MCH MCHC RDW Lymph % (Auto) Lymph # (Auto) [place] # (Auto) Baso # (Auto) Seg Neutrophils % Seg Neuts % (Manual) Lymphocytes % (Manual) Nucleated RBC % Seg Neutrophils # Seg Neutrophils # Man Lymphocytes # (Manual) Monocytes # (Manual) Eosinophils # (Manual) PT INR APTT D-Dimer Heparin Anti-Xa Level ABG pH POC ABG pCO2 61.0 H POC ABG pO2 67.9 L ABG pO2 ABG HCO3 ABG O2 Saturation ABG Base Excess ABG Hemoglobin 10.4 L ABG Oxyhemoglobin ABG Sodium 132.7 L ABG Potassium 3.3 L ABG Chloride 92.0 L ABG Glucose 158 H Oxyhemoglobin Carboxyhemoglobin Sodium Potassium Chloride Carbon Dioxide BUN Creatinine Glucose POC Glucose 148 H 197 H Lactic Acid Calcium Magnesium Ferritin Total Bilirubin Direct Bilirubin AST ALT Alkaline Phosphatase Lactate Dehydrogenase C-Reactive Protein Total Protein Albumin Triglycerides Lipase Arterial Blood Glucose 158 H Arterial Blood Ionized Calcium Urine WBC (Auto) Coronavirus (PCR) SARS-CoV-2 IgG Ab Crossmatch 06/15/20 06/15/20 06/16/20 17:29 Unknown 00:01 WBC 20.7 H RBC 2.57 L Hgb 8.9 L Hct 25.8 L MCV 101 H MCH 35 H MCHC 35 H RDW 16.0 H Lymph % (Auto) Lymph # (Auto) [place] # (Auto) Baso # (Auto) Seg Neutrophils % Seg Neuts % (Manual) 83.0 H Lymphocytes % (Manual) 8.0 L Nucleated RBC % Seg Neutrophils # Seg Neutrophils # Man 17.2 H Lymphocytes # (Manual) Monocytes # (Manual) 1.2 H Eosinophils # (Manual) PT INR APTT D-Dimer Heparin Anti-Xa Level ABG pH POC ABG pCO2 POC ABG pO2 ABG pO2 ABG HCO3 ABG O2 Saturation ABG Base Excess ABG Hemoglobin ABG Oxyhemoglobin ABG Sodium ABG Potassium ABG Chloride ABG Glucose Oxyhemoglobin Carboxyhemoglobin Sodium Potassium Chloride Carbon Dioxide BUN Creatinine Glucose POC Glucose 231 H 257 H Lactic Acid Calcium Magnesium Ferritin Total Bilirubin Direct Bilirubin AST ALT Alkaline Phosphatase Lactate Dehydrogenase C-Reactive Protein Total Protein Albumin Triglycerides Lipase Arterial Blood Glucose Arterial Blood Ionized Calcium Urine WBC (Auto) Coronavirus (PCR) SARS-CoV-2 IgG Ab Crossmatch 06/16/20 06/16/20 06/16/20 04:00 04:00 05:22 WBC 13.8 H RBC 2.03 L Hgb 7.6 L Hct 20.7 L MCV 102 H MCH 37 H MCHC 37 H RDW 16.2 H Lymph % (Auto) 4.4 L Lymph # (Auto) 0.6 L [place] # (Auto) Baso # (Auto) Seg Neutrophils % Seg Neuts % (Manual) Lymphocytes % (Manual) Nucleated RBC % Seg Neutrophils # 12.7 H Seg Neutrophils # Man Lymphocytes # (Manual) Monocytes # (Manual) Eosinophils # (Manual) PT INR APTT D-Dimer Heparin Anti-Xa Level ABG pH POC ABG pCO2 POC ABG pO2 ABG pO2 ABG HCO3 ABG O2 Saturation ABG Base Excess ABG Hemoglobin ABG Oxyhemoglobin ABG Sodium ABG Potassium ABG Chloride ABG Glucose Oxyhemoglobin Carboxyhemoglobin Sodium 130 L Potassium Chloride 88.9 L Carbon Dioxide 36 H BUN Creatinine 0.3 L Glucose 276 H POC Glucose 250 H Lactic Acid Calcium Magnesium Ferritin Total Bilirubin Direct Bilirubin AST ALT Alkaline Phosphatase Lactate Dehydrogenase C-Reactive Protein Total Protein Albumin Triglycerides Lipase Arterial Blood Glucose Arterial Blood Ionized Calcium Urine WBC (Auto) Coronavirus (PCR) SARS-CoV-2 IgG Ab Crossmatch 06/16/20 06/16/20 06/17/20 12:44 18:18 00:39 WBC RBC Hgb Hct MCV MCH MCHC RDW Lymph % (Auto) Lymph # (Auto) [place] # (Auto) Baso # (Auto) Seg Neutrophils % Seg Neuts % (Manual) Lymphocytes % (Manual) Nucleated RBC % Seg Neutrophils # Seg Neutrophils # Man Lymphocytes # (Manual) Monocytes # (Manual) Eosinophils # (Manual) PT INR APTT D-Dimer Heparin Anti-Xa Level ABG pH POC ABG pCO2 POC ABG pO2 ABG pO2 ABG HCO3 ABG O2 Saturation ABG Base Excess ABG Hemoglobin ABG Oxyhemoglobin ABG Sodium ABG Potassium ABG Chloride ABG Glucose Oxyhemoglobin Carboxyhemoglobin Sodium Potassium Chloride Carbon Dioxide BUN Creatinine Glucose POC Glucose 279 H 239 H 247 H Lactic Acid Calcium Magnesium Ferritin Total Bilirubin Direct Bilirubin AST ALT Alkaline Phosphatase Lactate Dehydrogenase C-Reactive Protein Total Protein Albumin Triglycerides Lipase Arterial Blood Glucose Arterial Blood Ionized Calcium Urine WBC (Auto) Coronavirus (PCR) SARS-CoV-2 IgG Ab Crossmatch 06/17/20 06/17/20 06/17/20 03:40 04:08 10:54 WBC RBC Hgb Hct MCV MCH MCHC RDW Lymph % (Auto) Lymph # (Auto) [place] # (Auto) Baso # (Auto) Seg Neutrophils % Seg Neuts % (Manual) Lymphocytes % (Manual) Nucleated RBC % Seg Neutrophils # Seg Neutrophils # Man Lymphocytes # (Manual) Monocytes # (Manual) Eosinophils # (Manual) PT INR APTT D-Dimer Heparin Anti-Xa Level ABG pH POC ABG pCO2 65.7 H POC ABG pO2 ABG pO2 ABG HCO3 ABG O2 Saturation ABG Base Excess ABG Hemoglobin 11.9 L ABG Oxyhemoglobin ABG Sodium ABG Potassium ABG Chloride 93.0 L ABG Glucose 244 H Oxyhemoglobin Carboxyhemoglobin Sodium Potassium Chloride Carbon Dioxide BUN Creatinine Glucose POC Glucose 221 H 248 H Lactic Acid Calcium Magnesium Ferritin Total Bilirubin Direct Bilirubin AST ALT Alkaline Phosphatase Lactate Dehydrogenase C-Reactive Protein Total Protein Albumin Triglycerides Lipase Arterial Blood Glucose 244 H Arterial Blood Ionized Calcium Urine WBC (Auto) Coronavirus (PCR) SARS-CoV-2 IgG Ab Crossmatch 06/17/20 06/17/20 06/17/20 17:47 23:11 23:29 WBC RBC Hgb Hct MCV MCH MCHC RDW Lymph % (Auto) Lymph # (Auto) [place] # (Auto) Baso # (Auto) Seg Neutrophils % Seg Neuts % (Manual) Lymphocytes % (Manual) Nucleated RBC % Seg Neutrophils # Seg Neutrophils # Man Lymphocytes # (Manual) Monocytes # (Manual) Eosinophils # (Manual) PT INR APTT D-Dimer Heparin Anti-Xa Level ABG pH POC ABG pCO2 85.2 H POC ABG pO2 48.4 L ABG pO2 ABG HCO3 ABG O2 Saturation ABG Base Excess ABG Hemoglobin 8.0 L ABG Oxyhemoglobin ABG Sodium ABG Potassium ABG Chloride 95.0 L ABG Glucose 292 H Oxyhemoglobin Carboxyhemoglobin Sodium Potassium Chloride Carbon Dioxide BUN Creatinine Glucose POC Glucose 245 H 252 H Lactic Acid Calcium Magnesium Ferritin Total Bilirubin Direct Bilirubin AST ALT Alkaline Phosphatase Lactate Dehydrogenase C-Reactive Protein Total Protein Albumin Triglycerides Lipase Arterial Blood Glucose 292 H Arterial Blood Ionized Calcium Urine WBC (Auto) Coronavirus (PCR) SARS-CoV-2 IgG Ab Crossmatch 06/18/20 06/18/20 06/18/20 03:14 05:34 11:47 WBC RBC Hgb Hct MCV MCH MCHC RDW Lymph % (Auto) Lymph # (Auto) [place] # (Auto) Baso # (Auto) Seg Neutrophils % Seg Neuts % (Manual) Lymphocytes % (Manual) Nucleated RBC % Seg Neutrophils # Seg Neutrophils # Man Lymphocytes # (Manual) Monocytes # (Manual) Eosinophils # (Manual) PT INR APTT D-Dimer Heparin Anti-Xa Level ABG pH POC ABG pCO2 65.4 H POC ABG pO2 160.7 H ABG pO2 ABG HCO3 ABG O2 Saturation ABG Base Excess ABG Hemoglobin 7.8 L ABG Oxyhemoglobin ABG Sodium ABG Potassium ABG Chloride 95.0 L ABG Glucose 251 H Oxyhemoglobin Carboxyhemoglobin Sodium Potassium Chloride Carbon Dioxide BUN Creatinine Glucose POC Glucose 243 H 263 H Lactic Acid Calcium Magnesium Ferritin Total Bilirubin Direct Bilirubin AST ALT Alkaline Phosphatase Lactate Dehydrogenase C-Reactive Protein Total Protein Albumin Triglycerides Lipase Arterial Blood Glucose 251 H Arterial Blood Ionized Calcium Urine WBC (Auto) Coronavirus (PCR) SARS-CoV-2 IgG Ab Crossmatch 06/18/20 06/18/20 06/19/20 17:31 23:33 04:32 WBC RBC Hgb Hct MCV MCH MCHC RDW Lymph % (Auto) Lymph # (Auto) [place] # (Auto) Baso # (Auto) Seg Neutrophils % Seg Neuts % (Manual) Lymphocytes % (Manual) Nucleated RBC % Seg Neutrophils # Seg Neutrophils # Man Lymphocytes # (Manual) Monocytes # (Manual) Eosinophils # (Manual) PT INR APTT D-Dimer Heparin Anti-Xa Level ABG pH POC ABG pCO2 83.1 H POC ABG pO2 65.8 L ABG pO2 ABG HCO3 ABG O2 Saturation ABG Base Excess ABG Hemoglobin 8.9 L ABG Oxyhemoglobin ABG Sodium ABG Potassium ABG Chloride 96.0 L ABG Glucose 297 H Oxyhemoglobin Carboxyhemoglobin Sodium Potassium Chloride Carbon Dioxide BUN Creatinine Glucose POC Glucose 286 H 238 H Lactic Acid Calcium Magnesium Ferritin Total Bilirubin Direct Bilirubin AST ALT Alkaline Phosphatase Lactate Dehydrogenase C-Reactive Protein Total Protein Albumin Triglycerides Lipase Arterial Blood Glucose 297 H Arterial Blood Ionized Calcium Urine WBC (Auto) Coronavirus (PCR) SARS-CoV-2 IgG Ab Crossmatch 06/19/20 06/19/20 06/19/20 05:55 11:20 17:12 WBC RBC Hgb Hct MCV MCH MCHC RDW Lymph % (Auto) Lymph # (Auto) [place] # (Auto) Baso # (Auto) Seg Neutrophils % Seg Neuts % (Manual) Lymphocytes % (Manual) Nucleated RBC % Seg Neutrophils # Seg Neutrophils # Man Lymphocytes # (Manual) Monocytes # (Manual) Eosinophils # (Manual) PT INR APTT D-Dimer Heparin Anti-Xa Level ABG pH POC ABG pCO2 POC ABG pO2 ABG pO2 ABG HCO3 ABG O2 Saturation ABG Base Excess ABG Hemoglobin ABG Oxyhemoglobin ABG Sodium ABG Potassium ABG Chloride ABG Glucose Oxyhemoglobin Carboxyhemoglobin Sodium Potassium Chloride Carbon Dioxide BUN Creatinine Glucose POC Glucose 274 H 282 H 298 H Lactic Acid Calcium Magnesium Ferritin Total Bilirubin Direct Bilirubin AST ALT Alkaline Phosphatase Lactate Dehydrogenase C-Reactive Protein Total Protein Albumin Triglycerides Lipase Arterial Blood Glucose Arterial Blood Ionized Calcium Urine WBC (Auto) Coronavirus (PCR) SARS-CoV-2 IgG Ab Crossmatch 06/19/20 06/20/20 06/20/20 23:08 03:33 06:01 WBC RBC Hgb Hct MCV MCH MCHC RDW Lymph % (Auto) Lymph # (Auto) [place] # (Auto) Baso # (Auto) Seg Neutrophils % Seg Neuts % (Manual) Lymphocytes % (Manual) Nucleated RBC % Seg Neutrophils # Seg Neutrophils # Man Lymphocytes # (Manual) Monocytes # (Manual) Eosinophils # (Manual) PT INR APTT D-Dimer Heparin Anti-Xa Level ABG pH POC ABG pCO2 POC ABG pO2 ABG pO2 69.9 L ABG HCO3 50.8 H ABG O2 Saturation ABG Base Excess 24.2 H ABG Hemoglobin 5.8 L ABG Oxyhemoglobin ABG Sodium ABG Potassium ABG Chloride ABG Glucose Oxyhemoglobin Carboxyhemoglobin Sodium Potassium Chloride Carbon Dioxide BUN Creatinine Glucose POC Glucose 293 H 182 H Lactic Acid Calcium Magnesium Ferritin Total Bilirubin Direct Bilirubin AST ALT Alkaline Phosphatase Lactate Dehydrogenase C-Reactive Protein Total Protein Albumin Triglycerides Lipase Arterial Blood Glucose Arterial Blood Ionized Calcium Urine WBC (Auto) Coronavirus (PCR) SARS-CoV-2 IgG Ab Crossmatch 06/20/20 06/20/20 06/20/20 11:47 17:46 23:37 WBC RBC Hgb Hct MCV MCH MCHC RDW Lymph % (Auto) Lymph # (Auto) [place] # (Auto) Baso # (Auto) Seg Neutrophils % Seg Neuts % (Manual) Lymphocytes % (Manual) Nucleated RBC % Seg Neutrophils # Seg Neutrophils # Man Lymphocytes # (Manual) Monocytes # (Manual) Eosinophils # (Manual) PT INR APTT D-Dimer Heparin Anti-Xa Level ABG pH POC ABG pCO2 POC ABG pO2 ABG pO2 ABG HCO3 ABG O2 Saturation ABG Base Excess ABG Hemoglobin ABG Oxyhemoglobin ABG Sodium ABG Potassium ABG Chloride ABG Glucose Oxyhemoglobin Carboxyhemoglobin Sodium Potassium Chloride Carbon Dioxide BUN Creatinine Glucose POC Glucose 170 H 215 H 256 H Lactic Acid Calcium Magnesium Ferritin Total Bilirubin Direct Bilirubin AST ALT Alkaline Phosphatase Lactate Dehydrogenase C-Reactive Protein Total Protein Albumin Triglycerides Lipase Arterial Blood Glucose Arterial Blood Ionized Calcium Urine WBC (Auto) Coronavirus (PCR) SARS-CoV-2 IgG Ab Crossmatch 06/21/20 06/21/20 06/21/20 04:00 05:14 05:51 WBC RBC Hgb Hct MCV MCH MCHC RDW Lymph % (Auto) Lymph # (Auto) [place] # (Auto) Baso # (Auto) Seg Neutrophils % Seg Neuts % (Manual) Lymphocytes % (Manual) Nucleated RBC % Seg Neutrophils # Seg Neutrophils # Man Lymphocytes # (Manual) Monocytes # (Manual) Eosinophils # (Manual) PT INR APTT D-Dimer Heparin Anti-Xa Level ABG pH 7.474 H POC ABG pCO2 POC ABG pO2 ABG pO2 ABG HCO3 52.1 H ABG O2 Saturation ABG Base Excess 23.3 H ABG Hemoglobin 5.3 L ABG Oxyhemoglobin ABG Sodium ABG Potassium ABG Chloride ABG Glucose Oxyhemoglobin 93.8 L Carboxyhemoglobin Sodium Potassium Chloride Carbon Dioxide BUN Creatinine Glucose POC Glucose 122 H 129 H Lactic Acid Calcium Magnesium Ferritin Total Bilirubin Direct Bilirubin AST ALT Alkaline Phosphatase Lactate Dehydrogenase C-Reactive Protein Total Protein Albumin Triglycerides Lipase Arterial Blood Glucose Arterial Blood Ionized Calcium Urine WBC (Auto) Coronavirus (PCR) SARS-CoV-2 IgG Ab Crossmatch 06/21/20 06/21/20 06/21/20 11:00 11:00 11:42 WBC 14.2 H RBC 1.85 L Hgb 6.2 L Hct 19.5 L* MCV 105 H MCH 34 H MCHC RDW 18.0 H Lymph % (Auto) Lymph # (Auto) [place] # (Auto) Baso # (Auto) Seg Neutrophils % Seg Neuts % (Manual) Lymphocytes % (Manual) Nucleated RBC % Seg Neutrophils # Seg Neutrophils # Man Lymphocytes # (Manual) Monocytes # (Manual) Eosinophils # (Manual) PT INR APTT D-Dimer Heparin Anti-Xa Level ABG pH POC ABG pCO2 POC ABG pO2 ABG pO2 ABG HCO3 ABG O2 Saturation ABG Base Excess ABG Hemoglobin ABG Oxyhemoglobin ABG Sodium ABG Potassium ABG Chloride ABG Glucose Oxyhemoglobin Carboxyhemoglobin Sodium 147 H Potassium Chloride Carbon Dioxide 51 H* BUN 31 H Creatinine 0.5 L Glucose 224 H POC Glucose 217 H Lactic Acid Calcium Magnesium Ferritin Total Bilirubin Direct Bilirubin AST ALT Alkaline Phosphatase Lactate Dehydrogenase C-Reactive Protein Total Protein Albumin Triglycerides Lipase Arterial Blood Glucose Arterial Blood Ionized Calcium Urine WBC (Auto) Coronavirus (PCR) SARS-CoV-2 IgG Ab Crossmatch 06/21/20 06/21/20 06/21/20 14:18 14:30 18:36 WBC RBC Hgb Hct MCV MCH MCHC RDW Lymph % (Auto) Lymph # (Auto) [place] # (Auto) Baso # (Auto) Seg Neutrophils % Seg Neuts % (Manual) Lymphocytes % (Manual) Nucleated RBC % Seg Neutrophils # Seg Neutrophils # Man Lymphocytes # (Manual) Monocytes # (Manual) Eosinophils # (Manual) PT 15.1 H INR 1.19 H APTT D-Dimer Heparin Anti-Xa Level ABG pH POC ABG pCO2 POC ABG pO2 ABG pO2 ABG HCO3 ABG O2 Saturation ABG Base Excess ABG Hemoglobin ABG Oxyhemoglobin ABG Sodium ABG Potassium ABG Chloride ABG Glucose Oxyhemoglobin Carboxyhemoglobin Sodium Potassium Chloride Carbon Dioxide BUN Creatinine Glucose POC Glucose 185 H Lactic Acid Calcium Magnesium Ferritin Total Bilirubin Direct Bilirubin AST ALT Alkaline Phosphatase Lactate Dehydrogenase C-Reactive Protein Total Protein Albumin Triglycerides Lipase Arterial Blood Glucose Arterial Blood Ionized Calcium Urine WBC (Auto) Coronavirus (PCR) SARS-CoV-2 IgG Ab Crossmatch See Detail 06/21/20 06/22/20 06/22/20 21:14 03:50 04:00 WBC RBC Hgb Hct MCV MCH MCHC RDW Lymph % (Auto) Lymph # (Auto) [place] # (Auto) Baso # (Auto) Seg Neutrophils % Seg Neuts % (Manual) Lymphocytes % (Manual) Nucleated RBC % Seg Neutrophils # Seg Neutrophils # Man Lymphocytes # (Manual) Monocytes # (Manual) Eosinophils # (Manual) PT INR APTT D-Dimer Heparin Anti-Xa Level ABG pH 7.451 H POC ABG pCO2 POC ABG pO2 ABG pO2 ABG HCO3 47.5 H ABG O2 Saturation ABG Base Excess 22.0 H ABG Hemoglobin < 5.1 L ABG Oxyhemoglobin ABG Sodium ABG Potassium ABG Chloride ABG Glucose Oxyhemoglobin 94.1 L Carboxyhemoglobin Sodium 149 H Potassium 3.5 L Chloride Carbon Dioxide 42 H* D BUN 34 H Creatinine 0.4 L Glucose 219 H POC Glucose 250 H Lactic Acid Calcium Magnesium Ferritin Total Bilirubin Direct Bilirubin AST ALT Alkaline Phosphatase Lactate Dehydrogenase C-Reactive Protein Total Protein Albumin Triglycerides Lipase Arterial Blood Glucose Arterial Blood Ionized Calcium Urine WBC (Auto) Coronavirus (PCR) SARS-CoV-2 IgG Ab Crossmatch 06/22/20 06/22/20 06/22/20 12:16 14:29 17:56 WBC RBC Hgb Hct MCV MCH MCHC RDW Lymph % (Auto) Lymph # (Auto) [place] # (Auto) Baso # (Auto) Seg Neutrophils % Seg Neuts % (Manual) Lymphocytes % (Manual) Nucleated RBC % Seg Neutrophils # Seg Neutrophils # Man Lymphocytes # (Manual) Monocytes # (Manual) Eosinophils # (Manual) PT 11.8 L INR APTT 23.5 L D-Dimer Heparin Anti-Xa Level ABG pH POC ABG pCO2 POC ABG pO2 ABG pO2 ABG HCO3 ABG O2 Saturation ABG Base Excess ABG Hemoglobin ABG Oxyhemoglobin ABG Sodium ABG Potassium ABG Chloride ABG Glucose Oxyhemoglobin Carboxyhemoglobin Sodium Potassium Chloride Carbon Dioxide BUN Creatinine Glucose POC Glucose 215 H 215 H Lactic Acid Calcium Magnesium Ferritin Total Bilirubin Direct Bilirubin AST ALT Alkaline Phosphatase Lactate Dehydrogenase C-Reactive Protein Total Protein Albumin Triglycerides Lipase Arterial Blood Glucose Arterial Blood Ionized Calcium Urine WBC (Auto) Coronavirus (PCR) SARS-CoV-2 IgG Ab Crossmatch 06/22/20 06/22/20 06/22/20 23:36 23:45 Unknown WBC 14.1 H RBC 2.70 L Hgb 8.9 L 8.9 L Hct 26.9 L 27.2 L D MCV 101 H MCH 33 H MCHC RDW 17.7 H Lymph % (Auto) Lymph # (Auto) [place] # (Auto) Baso # (Auto) Seg Neutrophils % Seg Neuts % (Manual) 92.0 H Lymphocytes % (Manual) 5.0 L Nucleated RBC % Seg Neutrophils # Seg Neutrophils # Man 13.0 H Lymphocytes # (Manual) 0.7 L Monocytes # (Manual) Eosinophils # (Manual) PT INR APTT D-Dimer Heparin Anti-Xa Level ABG pH POC ABG pCO2 POC ABG pO2 ABG pO2 ABG HCO3 ABG O2 Saturation ABG Base Excess ABG Hemoglobin ABG Oxyhemoglobin ABG Sodium ABG Potassium ABG Chloride ABG Glucose Oxyhemoglobin Carboxyhemoglobin Sodium Potassium Chloride Carbon Dioxide BUN Creatinine Glucose POC Glucose 208 H Lactic Acid Calcium Magnesium Ferritin Total Bilirubin Direct Bilirubin AST ALT Alkaline Phosphatase Lactate Dehydrogenase C-Reactive Protein Total Protein Albumin Triglycerides Lipase Arterial Blood Glucose Arterial Blood Ionized Calcium Urine WBC (Auto) Coronavirus (PCR) SARS-CoV-2 IgG Ab Crossmatch 06/23/20 06/23/20 06/23/20 05:17 05:19 06:50 WBC RBC Hgb Hct MCV MCH MCHC RDW Lymph % (Auto) Lymph # (Auto) [place] # (Auto) Baso # (Auto) Seg Neutrophils % Seg Neuts % (Manual) Lymphocytes % (Manual) Nucleated RBC % Seg Neutrophils # Seg Neutrophils # Man Lymphocytes # (Manual) Monocytes # (Manual) Eosinophils # (Manual) PT INR APTT D-Dimer Heparin Anti-Xa Level ABG pH POC ABG pCO2 69.7 H POC ABG pO2 63.3 L ABG pO2 ABG HCO3 ABG O2 Saturation ABG Base Excess ABG Hemoglobin 10.1 L ABG Oxyhemoglobin ABG Sodium ABG Potassium 3.3 L ABG Chloride ABG Glucose 226 H Oxyhemoglobin Carboxyhemoglobin Sodium Potassium 3.0 L Chloride Carbon Dioxide 41 H* BUN 26 H Creatinine 0.4 L Glucose 209 H POC Glucose 200 H Lactic Acid Calcium Magnesium Ferritin Total Bilirubin Direct Bilirubin AST ALT Alkaline Phosphatase Lactate Dehydrogenase C-Reactive Protein Total Protein Albumin 2.9 L Triglycerides Lipase Arterial Blood Glucose 226 H Arterial Blood Ionized Calcium Urine WBC (Auto) Coronavirus (PCR) SARS-CoV-2 IgG Ab Crossmatch 06/23/20 06/23/20 06/23/20 09:41 12:04 18:16 WBC RBC Hgb 9.1 L Hct 28.0 L MCV MCH MCHC RDW Lymph % (Auto) Lymph # (Auto) [place] # (Auto) Baso # (Auto) Seg Neutrophils % Seg Neuts % (Manual) Lymphocytes % (Manual) Nucleated RBC % Seg Neutrophils # Seg Neutrophils # Man Lymphocytes # (Manual) Monocytes # (Manual) Eosinophils # (Manual) PT INR APTT D-Dimer Heparin Anti-Xa Level ABG pH POC ABG pCO2 POC ABG pO2 ABG pO2 ABG HCO3 ABG O2 Saturation ABG Base Excess ABG Hemoglobin ABG Oxyhemoglobin ABG Sodium ABG Potassium ABG Chloride ABG Glucose Oxyhemoglobin Carboxyhemoglobin Sodium Potassium Chloride Carbon Dioxide BUN Creatinine Glucose POC Glucose 146 H 162 H Lactic Acid Calcium Magnesium Ferritin Total Bilirubin Direct Bilirubin AST ALT Alkaline Phosphatase Lactate Dehydrogenase C-Reactive Protein Total Protein Albumin Triglycerides Lipase Arterial Blood Glucose Arterial Blood Ionized Calcium Urine WBC (Auto) Coronavirus (PCR) SARS-CoV-2 IgG Ab Crossmatch 06/23/20 06/23/20 06/24/20 23:24 23:41 02:39 WBC RBC Hgb 8.2 L 8.8 L Hct 24.9 L 26.8 L MCV MCH MCHC RDW Lymph % (Auto) Lymph # (Auto) [place] # (Auto) Baso # (Auto) Seg Neutrophils % Seg Neuts % (Manual) Lymphocytes % (Manual) Nucleated RBC % Seg Neutrophils # Seg Neutrophils # Man Lymphocytes # (Manual) Monocytes # (Manual) Eosinophils # (Manual) PT INR APTT D-Dimer Heparin Anti-Xa Level ABG pH POC ABG pCO2 POC ABG pO2 ABG pO2 ABG HCO3 ABG O2 Saturation ABG Base Excess ABG Hemoglobin ABG Oxyhemoglobin ABG Sodium ABG Potassium ABG Chloride ABG Glucose Oxyhemoglobin Carboxyhemoglobin Sodium Potassium Chloride Carbon Dioxide BUN Creatinine Glucose POC Glucose 248 H Lactic Acid Calcium Magnesium Ferritin Total Bilirubin Direct Bilirubin AST ALT Alkaline Phosphatase Lactate Dehydrogenase C-Reactive Protein Total Protein Albumin Triglycerides Lipase Arterial Blood Glucose Arterial Blood Ionized Calcium Urine WBC (Auto) Coronavirus (PCR) SARS-CoV-2 IgG Ab Crossmatch 06/24/20 06/24/20 06/24/20 02:39 02:45 05:31 WBC RBC Hgb Hct MCV MCH MCHC RDW Lymph % (Auto) Lymph # (Auto) [place] # (Auto) Baso # (Auto) Seg Neutrophils % Seg Neuts % (Manual) Lymphocytes % (Manual) Nucleated RBC % Seg Neutrophils # Seg Neutrophils # Man Lymphocytes # (Manual) Monocytes # (Manual) Eosinophils # (Manual) PT INR APTT D-Dimer Heparin Anti-Xa Level ABG pH POC ABG pCO2 66.9 H POC ABG pO2 109.7 H ABG pO2 ABG HCO3 ABG O2 Saturation ABG Base Excess ABG Hemoglobin 9.7 L ABG Oxyhemoglobin ABG Sodium 135.0 L ABG Potassium ABG Chloride 97.0 L ABG Glucose 277 H Oxyhemoglobin Carboxyhemoglobin Sodium 136 L Potassium Chloride 95.0 L Carbon Dioxide 34 H D BUN 24 H Creatinine 0.3 L Glucose 260 H POC Glucose 164 H Lactic Acid Calcium Magnesium Ferritin Total Bilirubin Direct Bilirubin AST ALT Alkaline Phosphatase Lactate Dehydrogenase C-Reactive Protein Total Protein 5.2 L Albumin 2.6 L Triglycerides Lipase Arterial Blood Glucose 277 H Arterial Blood Ionized Calcium Urine WBC (Auto) Coronavirus (PCR) SARS-CoV-2 IgG Ab Crossmatch 06/24/20 06/24/20 06/24/20 10:00 11:49 17:39 WBC RBC Hgb 8.9 L Hct 26.5 L MCV MCH MCHC RDW Lymph % (Auto) Lymph # (Auto) [place] # (Auto) Baso # (Auto) Seg Neutrophils % Seg Neuts % (Manual) Lymphocytes % (Manual) Nucleated RBC % Seg Neutrophils # Seg Neutrophils # Man Lymphocytes # (Manual) Monocytes # (Manual) Eosinophils # (Manual) PT INR APTT D-Dimer Heparin Anti-Xa Level ABG pH POC ABG pCO2 POC ABG pO2 ABG pO2 ABG HCO3 ABG O2 Saturation ABG Base Excess ABG Hemoglobin ABG Oxyhemoglobin ABG Sodium ABG Potassium ABG Chloride ABG Glucose Oxyhemoglobin Carboxyhemoglobin Sodium Potassium Chloride Carbon Dioxide BUN Creatinine Glucose POC Glucose 198 H 223 H Lactic Acid Calcium Magnesium Ferritin Total Bilirubin Direct Bilirubin AST ALT Alkaline Phosphatase Lactate Dehydrogenase C-Reactive Protein Total Protein Albumin Triglycerides Lipase Arterial Blood Glucose Arterial Blood Ionized Calcium Urine WBC (Auto) Coronavirus (PCR) SARS-CoV-2 IgG Ab Crossmatch 06/24/20 06/25/20 06/25/20 23:56 02:16 04:08 WBC RBC Hgb Hct MCV MCH MCHC RDW Lymph % (Auto) Lymph # (Auto) [place] # (Auto) Baso # (Auto) Seg Neutrophils % Seg Neuts % (Manual) Lymphocytes % (Manual) Nucleated RBC % Seg Neutrophils # Seg Neutrophils # Man Lymphocytes # (Manual) Monocytes # (Manual) Eosinophils # (Manual) PT INR APTT D-Dimer Heparin Anti-Xa Level ABG pH 7.454 H POC ABG pCO2 56.9 H POC ABG pO2 61.0 L ABG pO2 ABG HCO3 ABG O2 Saturation ABG Base Excess ABG Hemoglobin ABG Oxyhemoglobin ABG Sodium 134.3 L ABG Potassium ABG Chloride 92.0 L ABG Glucose 246 H Oxyhemoglobin Carboxyhemoglobin Sodium 134 L Potassium Chloride 89.7 L Carbon Dioxide 36 H BUN Creatinine 0.3 L Glucose 254 H POC Glucose 225 H Lactic Acid Calcium Magnesium Ferritin Total Bilirubin Direct Bilirubin AST ALT Alkaline Phosphatase Lactate Dehydrogenase C-Reactive Protein Total Protein Albumin 2.9 L Triglycerides Lipase Arterial Blood Glucose 246 H Arterial Blood Ionized Calcium Urine WBC (Auto) Coronavirus (PCR) SARS-CoV-2 IgG Ab Crossmatch 06/25/20 06/25/20 06/25/20 05:44 11:35 17:33 WBC RBC Hgb Hct MCV MCH MCHC RDW Lymph % (Auto) Lymph # (Auto) [place] # (Auto) Baso # (Auto) Seg Neutrophils % Seg Neuts % (Manual) Lymphocytes % (Manual) Nucleated RBC % Seg Neutrophils # Seg Neutrophils # Man Lymphocytes # (Manual) Monocytes # (Manual) Eosinophils # (Manual) PT INR APTT D-Dimer Heparin Anti-Xa Level ABG pH POC ABG pCO2 POC ABG pO2 ABG pO2 ABG HCO3 ABG O2 Saturation ABG Base Excess ABG Hemoglobin ABG Oxyhemoglobin ABG Sodium ABG Potassium ABG Chloride ABG Glucose Oxyhemoglobin Carboxyhemoglobin Sodium Potassium Chloride Carbon Dioxide BUN Creatinine Glucose POC Glucose 170 H 175 H 229 H Lactic Acid Calcium Magnesium Ferritin Total Bilirubin Direct Bilirubin AST ALT Alkaline Phosphatase Lactate Dehydrogenase C-Reactive Protein Total Protein Albumin Triglycerides Lipase Arterial Blood Glucose Arterial Blood Ionized Calcium Urine WBC (Auto) Coronavirus (PCR) SARS-CoV-2 IgG Ab Crossmatch 06/25/20 06/26/20 06/26/20 23:55 02:17 02:17 WBC RBC Hgb 10.0 L Hct 30.4 L MCV MCH MCHC RDW Lymph % (Auto) Lymph # (Auto) [place] # (Auto) Baso # (Auto) Seg Neutrophils % Seg Neuts % (Manual) Lymphocytes % (Manual) Nucleated RBC % Seg Neutrophils # Seg Neutrophils # Man Lymphocytes # (Manual) Monocytes # (Manual) Eosinophils # (Manual) PT INR APTT D-Dimer Heparin Anti-Xa Level ABG pH POC ABG pCO2 POC ABG pO2 ABG pO2 ABG HCO3 ABG O2 Saturation ABG Base Excess ABG Hemoglobin ABG Oxyhemoglobin ABG Sodium ABG Potassium ABG Chloride ABG Glucose Oxyhemoglobin Carboxyhemoglobin Sodium 136 L Potassium Chloride 90.1 L Carbon Dioxide 39 H BUN Creatinine 0.2 L Glucose 232 H POC Glucose 192 H Lactic Acid Calcium Magnesium Ferritin Total Bilirubin Direct Bilirubin AST ALT Alkaline Phosphatase Lactate Dehydrogenase C-Reactive Protein Total Protein 6.1 L Albumin 2.9 L Triglycerides Lipase Arterial Blood Glucose Arterial Blood Ionized Calcium Urine WBC (Auto) Coronavirus (PCR) SARS-CoV-2 IgG Ab Crossmatch 06/26/20 06/26/20 06/26/20 04:15 04:49 05:28 WBC RBC Hgb Hct MCV MCH MCHC RDW Lymph % (Auto) Lymph # (Auto) [place] # (Auto) Baso # (Auto) Seg Neutrophils % Seg Neuts % (Manual) Lymphocytes % (Manual) Nucleated RBC % Seg Neutrophils # Seg Neutrophils # Man Lymphocytes # (Manual) Monocytes # (Manual) Eosinophils # (Manual) PT INR APTT D-Dimer Heparin Anti-Xa Level ABG pH 7.453 H POC ABG pCO2 59.6 H POC ABG pO2 ABG pO2 ABG HCO3 ABG O2 Saturation ABG Base Excess ABG Hemoglobin 10.0 L ABG Oxyhemoglobin ABG Sodium 134.2 L ABG Potassium 3.3 L ABG Chloride 92.0 L ABG Glucose 305 H Oxyhemoglobin Carboxyhemoglobin Sodium Potassium Chloride Carbon Dioxide BUN Creatinine Glucose POC Glucose 234 H Lactic Acid Calcium Magnesium Ferritin Total Bilirubin Direct Bilirubin AST ALT Alkaline Phosphatase Lactate Dehydrogenase C-Reactive Protein Total Protein Albumin Triglycerides 203 H Lipase Arterial Blood Glucose 305 H Arterial Blood Ionized Calcium Urine WBC (Auto) Coronavirus (PCR) SARS-CoV-2 IgG Ab Crossmatch 06/26/20 06/26/20 06/26/20 11:58 17:58 21:32 WBC RBC Hgb Hct MCV MCH MCHC RDW Lymph % (Auto) Lymph # (Auto) [place] # (Auto) Baso # (Auto) Seg Neutrophils % Seg Neuts % (Manual) Lymphocytes % (Manual) Nucleated RBC % Seg Neutrophils # Seg Neutrophils # Man Lymphocytes # (Manual) Monocytes # (Manual) Eosinophils # (Manual) PT INR APTT D-Dimer Heparin Anti-Xa Level ABG pH POC ABG pCO2 POC ABG pO2 ABG pO2 ABG HCO3 ABG O2 Saturation ABG Base Excess ABG Hemoglobin ABG Oxyhemoglobin ABG Sodium ABG Potassium ABG Chloride ABG Glucose Oxyhemoglobin Carboxyhemoglobin Sodium Potassium Chloride Carbon Dioxide BUN Creatinine Glucose POC Glucose 198 H 193 H 191 H Lactic Acid Calcium Magnesium Ferritin Total Bilirubin Direct Bilirubin AST ALT Alkaline Phosphatase Lactate Dehydrogenase C-Reactive Protein Total Protein Albumin Triglycerides Lipase Arterial Blood Glucose Arterial Blood Ionized Calcium Urine WBC (Auto) Coronavirus (PCR) SARS-CoV-2 IgG Ab Crossmatch 06/26/20 06/27/20 06/27/20 23:40 04:35 05:32 WBC RBC Hgb Hct MCV MCH MCHC RDW Lymph % (Auto) Lymph # (Auto) [place] # (Auto) Baso # (Auto) Seg Neutrophils % Seg Neuts % (Manual) Lymphocytes % (Manual) Nucleated RBC % Seg Neutrophils # Seg Neutrophils # Man Lymphocytes # (Manual) Monocytes # (Manual) Eosinophils # (Manual) PT INR APTT D-Dimer Heparin Anti-Xa Level ABG pH 7.464 H POC ABG pCO2 60.8 H POC ABG pO2 ABG pO2 ABG HCO3 ABG O2 Saturation ABG Base Excess ABG Hemoglobin 10.1 L ABG Oxyhemoglobin ABG Sodium ABG Potassium 2.9 L ABG Chloride 92.0 L ABG Glucose 298 H Oxyhemoglobin Carboxyhemoglobin Sodium Potassium Chloride Carbon Dioxide BUN Creatinine Glucose POC Glucose 241 H 211 H Lactic Acid Calcium Magnesium Ferritin Total Bilirubin Direct Bilirubin AST ALT Alkaline Phosphatase Lactate Dehydrogenase C-Reactive Protein Total Protein Albumin Triglycerides Lipase Arterial Blood Glucose 298 H Arterial Blood Ionized Calcium Urine WBC (Auto) Coronavirus (PCR) SARS-CoV-2 IgG Ab Crossmatch 06/27/20 06/27/20 06/27/20 12:37 18:08 20:52 WBC RBC Hgb Hct MCV MCH MCHC RDW Lymph % (Auto) Lymph # (Auto) [place] # (Auto) Baso # (Auto) Seg Neutrophils % Seg Neuts % (Manual) Lymphocytes % (Manual) Nucleated RBC % Seg Neutrophils # Seg Neutrophils # Man Lymphocytes # (Manual) Monocytes # (Manual) Eosinophils # (Manual) PT INR APTT D-Dimer Heparin Anti-Xa Level ABG pH POC ABG pCO2 POC ABG pO2 ABG pO2 ABG HCO3 ABG O2 Saturation ABG Base Excess ABG Hemoglobin ABG Oxyhemoglobin ABG Sodium ABG Potassium ABG Chloride ABG Glucose Oxyhemoglobin Carboxyhemoglobin Sodium Potassium Chloride Carbon Dioxide BUN Creatinine Glucose POC Glucose 182 H 197 H 195 H Lactic Acid Calcium Magnesium Ferritin Total Bilirubin Direct Bilirubin AST ALT Alkaline Phosphatase Lactate Dehydrogenase C-Reactive Protein Total Protein Albumin Triglycerides Lipase Arterial Blood Glucose Arterial Blood Ionized Calcium Urine WBC (Auto) Coronavirus (PCR) SARS-CoV-2 IgG Ab Crossmatch 06/27/20 06/28/20 06/28/20 Unknown 04:17 04:50 WBC RBC Hgb Hct MCV MCH MCHC RDW Lymph % (Auto) Lymph # (Auto) [place] # (Auto) Baso # (Auto) Seg Neutrophils % Seg Neuts % (Manual) Lymphocytes % (Manual) Nucleated RBC % Seg Neutrophils # Seg Neutrophils # Man Lymphocytes # (Manual) Monocytes # (Manual) Eosinophils # (Manual) PT INR APTT D-Dimer Heparin Anti-Xa Level ABG pH POC ABG pCO2 58.6 H POC ABG pO2 60.1 L ABG pO2 ABG HCO3 ABG O2 Saturation ABG Base Excess ABG Hemoglobin 10.0 L ABG Oxyhemoglobin ABG Sodium 125.3 L ABG Potassium ABG Chloride 93.0 L ABG Glucose 308 H Oxyhemoglobin Carboxyhemoglobin Sodium Potassium 2.9 L* Chloride 93.4 L Carbon Dioxide 42 H* BUN Creatinine 0.3 L Glucose 211 H POC Glucose 252 H Lactic Acid Calcium 8.1 L Magnesium Ferritin Total Bilirubin Direct Bilirubin AST ALT Alkaline Phosphatase Lactate Dehydrogenase C-Reactive Protein Total Protein 5.1 L Albumin 2.4 L Triglycerides Lipase Arterial Blood Glucose 308 H Arterial Blood Ionized Calcium Urine WBC (Auto) Coronavirus (PCR) SARS-CoV-2 IgG Ab Crossmatch 06/28/20 06/28/20 06/28/20 06:35 06:35 11:36 WBC 18.9 H RBC 2.85 L Hgb 9.5 L Hct 28.4 L MCV 100 H MCH 33 H MCHC RDW 17.3 H Lymph % (Auto) Lymph # (Auto) [place] # (Auto) Baso # (Auto) Seg Neutrophils % 88.6 H Seg Neuts % (Manual) 95.0 H Lymphocytes % (Manual) 1.0 L Nucleated RBC % Seg Neutrophils # 15.9 H Seg Neutrophils # Man 18.0 H Lymphocytes # (Manual) 0.2 L Monocytes # (Manual) Eosinophils # (Manual) PT INR APTT D-Dimer Heparin Anti-Xa Level ABG pH POC ABG pCO2 POC ABG pO2 ABG pO2 ABG HCO3 ABG O2 Saturation ABG Base Excess ABG Hemoglobin ABG Oxyhemoglobin ABG Sodium ABG Potassium ABG Chloride ABG Glucose Oxyhemoglobin Carboxyhemoglobin Sodium Potassium Chloride 94.2 L Carbon Dioxide 38 H BUN Creatinine 0.3 L Glucose 228 H POC Glucose 243 H Lactic Acid Calcium Magnesium Ferritin Total Bilirubin Direct Bilirubin AST ALT Alkaline Phosphatase Lactate Dehydrogenase C-Reactive Protein Total Protein 6.1 L Albumin 2.7 L Triglycerides Lipase Arterial Blood Glucose Arterial Blood Ionized Calcium Urine WBC (Auto) Coronavirus (PCR) SARS-CoV-2 IgG Ab Crossmatch 06/28/20 06/28/20 06/29/20 16:53 21:10 00:06 WBC RBC Hgb Hct MCV MCH MCHC RDW Lymph % (Auto) Lymph # (Auto) [place] # (Auto) Baso # (Auto) Seg Neutrophils % Seg Neuts % (Manual) Lymphocytes % (Manual) Nucleated RBC % Seg Neutrophils # Seg Neutrophils # Man Lymphocytes # (Manual) Monocytes # (Manual) Eosinophils # (Manual) PT INR APTT D-Dimer Heparin Anti-Xa Level ABG pH POC ABG pCO2 POC ABG pO2 ABG pO2 ABG HCO3 ABG O2 Saturation ABG Base Excess ABG Hemoglobin ABG Oxyhemoglobin ABG Sodium ABG Potassium ABG Chloride ABG Glucose Oxyhemoglobin Carboxyhemoglobin Sodium Potassium Chloride Carbon Dioxide BUN Creatinine Glucose POC Glucose 211 H 195 H 200 H Lactic Acid Calcium Magnesium Ferritin Total Bilirubin Direct Bilirubin AST ALT Alkaline Phosphatase Lactate Dehydrogenase C-Reactive Protein Total Protein Albumin Triglycerides Lipase Arterial Blood Glucose Arterial Blood Ionized Calcium Urine WBC (Auto) Coronavirus (PCR) SARS-CoV-2 IgG Ab Crossmatch 06/29/20 06/29/20 06/29/20 03:11 04:00 04:00 WBC 18.8 H RBC 2.82 L Hgb 10.1 L Hct 28.5 L MCV 101 H MCH 36 H MCHC 36 H RDW 17.5 H Lymph % (Auto) 10.7 L Lymph # (Auto) [place] # (Auto) 1.0 H Baso # (Auto) 0.3 H Seg Neutrophils % 82.2 H Seg Neuts % (Manual) Lymphocytes % (Manual) Nucleated RBC % Seg Neutrophils # 15.5 H Seg Neutrophils # Man Lymphocytes # (Manual) Monocytes # (Manual) Eosinophils # (Manual) PT INR APTT D-Dimer Heparin Anti-Xa Level ABG pH POC ABG pCO2 57.5 H POC ABG pO2 69.1 L ABG pO2 ABG HCO3 ABG O2 Saturation ABG Base Excess ABG Hemoglobin 10.2 L ABG Oxyhemoglobin 92.3 L ABG Sodium 130.7 L ABG Potassium 3.2 L ABG Chloride 93.0 L ABG Glucose 228 H Oxyhemoglobin Carboxyhemoglobin Sodium 134 L Potassium 3.3 L Chloride 89.5 L Carbon Dioxide 40 H BUN Creatinine 0.2 L Glucose 190 H POC Glucose Lactic Acid Calcium Magnesium Ferritin Total Bilirubin Direct Bilirubin AST < 5 L ALT < 5 L Alkaline Phosphatase Lactate Dehydrogenase C-Reactive Protein Total Protein 5.9 L Albumin 2.2 L Triglycerides Lipase Arterial Blood Glucose 228 H Arterial Blood Ionized Calcium Urine WBC (Auto) Coronavirus (PCR) SARS-CoV-2 IgG Ab Crossmatch 06/29/20 06/29/20 06/29/20 05:00 05:23 09:36 WBC RBC Hgb Hct MCV MCH MCHC RDW Lymph % (Auto) Lymph # (Auto) [place] # (Auto) Baso # (Auto) Seg Neutrophils % Seg Neuts % (Manual) Lymphocytes % (Manual) Nucleated RBC % Seg Neutrophils # Seg Neutrophils # Man Lymphocytes # (Manual) Monocytes # (Manual) Eosinophils # (Manual) PT INR APTT D-Dimer Heparin Anti-Xa Level ABG pH POC ABG pCO2 POC ABG pO2 ABG pO2 ABG HCO3 ABG O2 Saturation ABG Base Excess ABG Hemoglobin ABG Oxyhemoglobin ABG Sodium ABG Potassium ABG Chloride ABG Glucose Oxyhemoglobin Carboxyhemoglobin Sodium Potassium Chloride Carbon Dioxide BUN Creatinine Glucose POC Glucose 165 H Lactic Acid Calcium Magnesium Ferritin Total Bilirubin Direct Bilirubin AST ALT Alkaline Phosphatase Lactate Dehydrogenase C-Reactive Protein Total Protein Albumin Triglycerides 1544 H 1799 H Lipase Arterial Blood Glucose Arterial Blood Ionized Calcium Urine WBC (Auto) Coronavirus (PCR) SARS-CoV-2 IgG Ab Crossmatch 06/29/20 06/29/20 06/29/20 09:36 12:02 18:00 WBC RBC Hgb Hct MCV MCH MCHC RDW Lymph % (Auto) Lymph # (Auto) [place] # (Auto) Baso # (Auto) Seg Neutrophils % Seg Neuts % (Manual) Lymphocytes % (Manual) Nucleated RBC % Seg Neutrophils # Seg Neutrophils # Man Lymphocytes # (Manual) Monocytes # (Manual) Eosinophils # (Manual) PT INR APTT D-Dimer Heparin Anti-Xa Level ABG pH POC ABG pCO2 POC ABG pO2 ABG pO2 ABG HCO3 ABG O2 Saturation ABG Base Excess ABG Hemoglobin ABG Oxyhemoglobin ABG Sodium ABG Potassium ABG Chloride ABG Glucose Oxyhemoglobin Carboxyhemoglobin Sodium Potassium Chloride Carbon Dioxide BUN Creatinine Glucose POC Glucose 197 H 187 H Lactic Acid Calcium Magnesium Ferritin Total Bilirubin Direct Bilirubin AST ALT Alkaline Phosphatase Lactate Dehydrogenase C-Reactive Protein Total Protein Albumin Triglycerides Lipase 86 H Arterial Blood Glucose Arterial Blood Ionized Calcium Urine WBC (Auto) Coronavirus (PCR) SARS-CoV-2 IgG Ab Crossmatch 06/29/20 06/30/20 06/30/20 23:33 03:46 05:50 WBC RBC Hgb Hct MCV MCH MCHC RDW Lymph % (Auto) Lymph # (Auto) [place] # (Auto) Baso # (Auto) Seg Neutrophils % Seg Neuts % (Manual) Lymphocytes % (Manual) Nucleated RBC % Seg Neutrophils # Seg Neutrophils # Man Lymphocytes # (Manual) Monocytes # (Manual) Eosinophils # (Manual) PT INR APTT D-Dimer Heparin Anti-Xa Level ABG pH 7.466 H POC ABG pCO2 57.3 H POC ABG pO2 66.1 L ABG pO2 ABG HCO3 ABG O2 Saturation ABG Base Excess ABG Hemoglobin 10.2 L ABG Oxyhemoglobin 92.3 L ABG Sodium 134.4 L ABG Potassium 3.2 L ABG Chloride 94.0 L ABG Glucose 178 H Oxyhemoglobin Carboxyhemoglobin Sodium Potassium Chloride Carbon Dioxide BUN Creatinine Glucose POC Glucose 170 H 170 H Lactic Acid Calcium Magnesium Ferritin Total Bilirubin Direct Bilirubin AST ALT Alkaline Phosphatase Lactate Dehydrogenase C-Reactive Protein Total Protein Albumin Triglycerides Lipase Arterial Blood Glucose 178 H Arterial Blood Ionized Calcium Urine WBC (Auto) Coronavirus (PCR) SARS-CoV-2 IgG Ab Crossmatch 06/30/20 06/30/20 06/30/20 07:00 07:00 12:04 WBC 15.6 H RBC 2.91 L Hgb 9.8 L Hct 29.7 L MCV 102 H MCH 34 H MCHC RDW 17.8 H Lymph % (Auto) Lymph # (Auto) [place] # (Auto) Baso # (Auto) Seg Neutrophils % Seg Neuts % (Manual) Lymphocytes % (Manual) 5.0 L Nucleated RBC % Seg Neutrophils # Seg Neutrophils # Man 14.8 H Lymphocytes # (Manual) 0.8 L Monocytes # (Manual) Eosinophils # (Manual) PT INR APTT D-Dimer Heparin Anti-Xa Level ABG pH POC ABG pCO2 POC ABG pO2 ABG pO2 ABG HCO3 ABG O2 Saturation ABG Base Excess ABG Hemoglobin ABG Oxyhemoglobin ABG Sodium ABG Potassium ABG Chloride ABG Glucose Oxyhemoglobin Carboxyhemoglobin Sodium Potassium Chloride 93.3 L Carbon Dioxide 43 H* BUN Creatinine 0.3 L Glucose 260 H POC Glucose 245 H Lactic Acid Calcium Magnesium Ferritin Total Bilirubin Direct Bilirubin AST ALT Alkaline Phosphatase Lactate Dehydrogenase C-Reactive Protein Total Protein Albumin 2.8 L Triglycerides 452 H Lipase Arterial Blood Glucose Arterial Blood Ionized Calcium Urine WBC (Auto) Coronavirus (PCR) SARS-CoV-2 IgG Ab Crossmatch 06/30/20 07/01/20 07/01/20 17:32 00:02 05:02 WBC RBC Hgb Hct MCV MCH MCHC RDW Lymph % (Auto) Lymph # (Auto) [place] # (Auto) Baso # (Auto) Seg Neutrophils % Seg Neuts % (Manual) Lymphocytes % (Manual) Nucleated RBC % Seg Neutrophils # Seg Neutrophils # Man Lymphocytes # (Manual) Monocytes # (Manual) Eosinophils # (Manual) PT INR APTT D-Dimer Heparin Anti-Xa Level ABG pH POC ABG pCO2 58.1 H POC ABG pO2 ABG pO2 ABG HCO3 ABG O2 Saturation ABG Base Excess ABG Hemoglobin 11.2 L ABG Oxyhemoglobin ABG Sodium 132.7 L ABG Potassium ABG Chloride 92.0 L ABG Glucose 238 H Oxyhemoglobin Carboxyhemoglobin Sodium Potassium Chloride Carbon Dioxide BUN Creatinine Glucose POC Glucose 209 H 208 H Lactic Acid Calcium Magnesium Ferritin Total Bilirubin Direct Bilirubin AST ALT Alkaline Phosphatase Lactate Dehydrogenase C-Reactive Protein Total Protein Albumin Triglycerides Lipase Arterial Blood Glucose 238 H Arterial Blood Ionized Calcium Urine WBC (Auto) Coronavirus (PCR) SARS-CoV-2 IgG Ab Crossmatch 07/01/20 07/01/20 07/01/20 06:16 06:41 06:41 WBC 18.1 H RBC 2.33 L Hgb 7.1 L Hct 21.3 L D MCV MCH MCHC RDW Lymph % (Auto) Lymph # (Auto) [place] # (Auto) Baso # (Auto) Seg Neutrophils % Seg Neuts % (Manual) 82.0 H Lymphocytes % (Manual) 7.0 L Nucleated RBC % 1.0 H Seg Neutrophils # Seg Neutrophils # Man 14.8 H Lymphocytes # (Manual) Monocytes # (Manual) 1.1 H Eosinophils # (Manual) 0.5 H PT INR APTT D-Dimer Heparin Anti-Xa Level < 0.10 L ABG pH POC ABG pCO2 POC ABG pO2 ABG pO2 ABG HCO3 ABG O2 Saturation ABG Base Excess ABG Hemoglobin ABG Oxyhemoglobin ABG Sodium ABG Potassium ABG Chloride ABG Glucose Oxyhemoglobin Carboxyhemoglobin Sodium Potassium Chloride Carbon Dioxide BUN Creatinine Glucose POC Glucose 180 H Lactic Acid Calcium Magnesium Ferritin Total Bilirubin Direct Bilirubin AST ALT Alkaline Phosphatase Lactate Dehydrogenase C-Reactive Protein Total Protein Albumin Triglycerides Lipase Arterial Blood Glucose Arterial Blood Ionized Calcium Urine WBC (Auto) Coronavirus (PCR) SARS-CoV-2 IgG Ab Crossmatch 07/01/20 07/01/20 07/01/20 08:11 12:04 16:16 WBC RBC Hgb Hct MCV MCH MCHC RDW Lymph % (Auto) Lymph # (Auto) [place] # (Auto) Baso # (Auto) Seg Neutrophils % Seg Neuts % (Manual) Lymphocytes % (Manual) Nucleated RBC % Seg Neutrophils # Seg Neutrophils # Man Lymphocytes # (Manual) Monocytes # (Manual) Eosinophils # (Manual) PT INR APTT D-Dimer Heparin Anti-Xa Level 1.02 H ABG pH POC ABG pCO2 POC ABG pO2 ABG pO2 ABG HCO3 ABG O2 Saturation ABG Base Excess ABG Hemoglobin ABG Oxyhemoglobin ABG Sodium ABG Potassium ABG Chloride ABG Glucose Oxyhemoglobin Carboxyhemoglobin Sodium 135 L Potassium 3.0 L Chloride 93.1 L Carbon Dioxide 40 H BUN Creatinine 0.3 L Glucose 140 H POC Glucose 223 H Lactic Acid Calcium Magnesium Ferritin Total Bilirubin Direct Bilirubin AST ALT Alkaline Phosphatase Lactate Dehydrogenase C-Reactive Protein Total Protein Albumin Triglycerides Lipase Arterial Blood Glucose Arterial Blood Ionized Calcium Urine WBC (Auto) Coronavirus (PCR) SARS-CoV-2 IgG Ab Crossmatch 07/01/20 07/01/20 07/02/20 17:09 23:19 00:56 WBC RBC Hgb Hct MCV MCH MCHC RDW Lymph % (Auto) Lymph # (Auto) [place] # (Auto) Baso # (Auto) Seg Neutrophils % Seg Neuts % (Manual) Lymphocytes % (Manual) Nucleated RBC % Seg Neutrophils # Seg Neutrophils # Man Lymphocytes # (Manual) Monocytes # (Manual) Eosinophils # (Manual) PT INR APTT D-Dimer Heparin Anti-Xa Level 0.22 L ABG pH POC ABG pCO2 POC ABG pO2 ABG pO2 ABG HCO3 ABG O2 Saturation ABG Base Excess ABG Hemoglobin ABG Oxyhemoglobin ABG Sodium ABG Potassium ABG Chloride ABG Glucose Oxyhemoglobin Carboxyhemoglobin Sodium Potassium Chloride Carbon Dioxide BUN Creatinine Glucose POC Glucose 233 H 255 H Lactic Acid Calcium Magnesium Ferritin Total Bilirubin Direct Bilirubin AST ALT Alkaline Phosphatase Lactate Dehydrogenase C-Reactive Protein Total Protein Albumin Triglycerides Lipase Arterial Blood Glucose Arterial Blood Ionized Calcium Urine WBC (Auto) Coronavirus (PCR) SARS-CoV-2 IgG Ab Crossmatch 07/02/20 07/02/20 07/02/20 03:51 05:35 11:39 WBC RBC Hgb Hct MCV MCH MCHC RDW Lymph % (Auto) Lymph # (Auto) [place] # (Auto) Baso # (Auto) Seg Neutrophils % Seg Neuts % (Manual) Lymphocytes % (Manual) Nucleated RBC % Seg Neutrophils # Seg Neutrophils # Man Lymphocytes # (Manual) Monocytes # (Manual) Eosinophils # (Manual) PT INR APTT D-Dimer Heparin Anti-Xa Level ABG pH POC ABG pCO2 54.9 H POC ABG pO2 52.1 L ABG pO2 ABG HCO3 ABG O2 Saturation ABG Base Excess ABG Hemoglobin 11.9 L ABG Oxyhemoglobin 82.8 L ABG Sodium 130.2 L ABG Potassium ABG Chloride 92.0 L ABG Glucose 249 H Oxyhemoglobin Carboxyhemoglobin 1.9 H Sodium Potassium Chloride Carbon Dioxide BUN Creatinine Glucose POC Glucose 205 H 235 H Lactic Acid Calcium Magnesium Ferritin Total Bilirubin Direct Bilirubin AST ALT Alkaline Phosphatase Lactate Dehydrogenase C-Reactive Protein Total Protein Albumin Triglycerides Lipase Arterial Blood Glucose 249 H Arterial Blood Ionized Calcium Urine WBC (Auto) Coronavirus (PCR) SARS-CoV-2 IgG Ab Crossmatch 07/02/20 07/02/20 07/02/20 16:08 16:08 17:54 WBC 19.8 H RBC 3.28 L Hgb 10.7 L D Hct 32.7 L D MCV 100 H MCH 33 H MCHC RDW 17.2 H Lymph % (Auto) Lymph # (Auto) [place] # (Auto) Baso # (Auto) Seg Neutrophils % Seg Neuts % (Manual) Lymphocytes % (Manual) Nucleated RBC % Seg Neutrophils # Seg Neutrophils # Man Lymphocytes # (Manual) Monocytes # (Manual) Eosinophils # (Manual) PT INR APTT D-Dimer Heparin Anti-Xa Level ABG pH POC ABG pCO2 POC ABG pO2 ABG pO2 ABG HCO3 ABG O2 Saturation ABG Base Excess ABG Hemoglobin ABG Oxyhemoglobin ABG Sodium ABG Potassium ABG Chloride ABG Glucose Oxyhemoglobin Carboxyhemoglobin Sodium 136 L Potassium Chloride 92.4 L Carbon Dioxide 35 H BUN Creatinine 0.3 L Glucose 203 H POC Glucose 175 H Lactic Acid Calcium Magnesium Ferritin Total Bilirubin Direct Bilirubin AST ALT Alkaline Phosphatase Lactate Dehydrogenase C-Reactive Protein Total Protein Albumin Triglycerides Lipase Arterial Blood Glucose Arterial Blood Ionized Calcium Urine WBC (Auto) Coronavirus (PCR) SARS-CoV-2 IgG Ab Crossmatch 07/02/20 07/03/20 07/03/20 23:46 03:25 05:54 WBC RBC Hgb Hct MCV MCH MCHC RDW Lymph % (Auto) Lymph # (Auto) [place] # (Auto) Baso # (Auto) Seg Neutrophils % Seg Neuts % (Manual) Lymphocytes % (Manual) Nucleated RBC % Seg Neutrophils # Seg Neutrophils # Man Lymphocytes # (Manual) Monocytes # (Manual) Eosinophils # (Manual) PT INR APTT D-Dimer Heparin Anti-Xa Level ABG pH 7.468 H POC ABG pCO2 51.5 H POC ABG pO2 ABG pO2 ABG HCO3 ABG O2 Saturation ABG Base Excess ABG Hemoglobin ABG Oxyhemoglobin ABG Sodium 130.2 L ABG Potassium ABG Chloride 91.0 L ABG Glucose 210 H Oxyhemoglobin Carboxyhemoglobin 1.6 H Sodium Potassium Chloride Carbon Dioxide BUN Creatinine Glucose POC Glucose 173 H 125 H Lactic Acid Calcium Magnesium Ferritin Total Bilirubin Direct Bilirubin AST ALT Alkaline Phosphatase Lactate Dehydrogenase C-Reactive Protein Total Protein Albumin Triglycerides Lipase Arterial Blood Glucose 210 H Arterial Blood Ionized Calcium Urine WBC (Auto) Coronavirus (PCR) SARS-CoV-2 IgG Ab Crossmatch 07/03/20 07/03/20 07/03/20 11:43 12:20 12:20 WBC 16.5 H RBC 3.13 L Hgb 10.4 L Hct 31.8 L MCV 102 H MCH 33 H MCHC RDW 17.2 H Lymph % (Auto) Lymph # (Auto) [place] # (Auto) Baso # (Auto) Seg Neutrophils % Seg Neuts % (Manual) Lymphocytes % (Manual) Nucleated RBC % Seg Neutrophils # Seg Neutrophils # Man Lymphocytes # (Manual) Monocytes # (Manual) Eosinophils # (Manual) PT INR APTT D-Dimer Heparin Anti-Xa Level ABG pH POC ABG pCO2 POC ABG pO2 ABG pO2 ABG HCO3 ABG O2 Saturation ABG Base Excess ABG Hemoglobin ABG Oxyhemoglobin ABG Sodium ABG Potassium ABG Chloride ABG Glucose Oxyhemoglobin Carboxyhemoglobin Sodium 132 L Potassium Chloride 88.5 L Carbon Dioxide 37 H BUN Creatinine 0.3 L Glucose 230 H POC Glucose 223 H Lactic Acid Calcium Magnesium Ferritin Total Bilirubin Direct Bilirubin AST ALT Alkaline Phosphatase Lactate Dehydrogenase C-Reactive Protein Total Protein Albumin Triglycerides Lipase Arterial Blood Glucose Arterial Blood Ionized Calcium Urine WBC (Auto) Coronavirus (PCR) SARS-CoV-2 IgG Ab Crossmatch 07/03/20 07/03/20 07/04/20 17:24 21:41 00:54 WBC RBC Hgb Hct MCV MCH MCHC RDW Lymph % (Auto) Lymph # (Auto) [place] # (Auto) Baso # (Auto) Seg Neutrophils % Seg Neuts % (Manual) Lymphocytes % (Manual) Nucleated RBC % Seg Neutrophils # Seg Neutrophils # Man Lymphocytes # (Manual) Monocytes # (Manual) Eosinophils # (Manual) PT INR APTT D-Dimer Heparin Anti-Xa Level ABG pH POC ABG pCO2 POC ABG pO2 ABG pO2 ABG HCO3 ABG O2 Saturation ABG Base Excess ABG Hemoglobin ABG Oxyhemoglobin ABG Sodium ABG Potassium ABG Chloride ABG Glucose Oxyhemoglobin Carboxyhemoglobin Sodium Potassium Chloride Carbon Dioxide BUN Creatinine Glucose POC Glucose 163 H 220 H 195 H Lactic Acid Calcium Magnesium Ferritin Total Bilirubin Direct Bilirubin AST ALT Alkaline Phosphatase Lactate Dehydrogenase C-Reactive Protein Total Protein Albumin Triglycerides Lipase Arterial Blood Glucose Arterial Blood Ionized Calcium Urine WBC (Auto) Coronavirus (PCR) SARS-CoV-2 IgG Ab Crossmatch 07/04/20 07/04/20 07/04/20 03:25 04:00 04:00 WBC 14.9 H RBC 2.91 L Hgb 9.5 L Hct 29.2 L MCV 100 H MCH 33 H MCHC RDW 16.7 H Lymph % (Auto) 8.4 L Lymph # (Auto) [place] # (Auto) 1.1 H Baso # (Auto) Seg Neutrophils % 84.2 H Seg Neuts % (Manual) Lymphocytes % (Manual) Nucleated RBC % Seg Neutrophils # 12.6 H Seg Neutrophils # Man Lymphocytes # (Manual) Monocytes # (Manual) Eosinophils # (Manual) PT INR APTT D-Dimer Heparin Anti-Xa Level ABG pH 7.474 H POC ABG pCO2 POC ABG pO2 51.8 L ABG pO2 ABG HCO3 ABG O2 Saturation ABG Base Excess ABG Hemoglobin ABG Oxyhemoglobin ABG Sodium ABG Potassium ABG Chloride ABG Glucose Oxyhemoglobin Carboxyhemoglobin Sodium Potassium 3.4 L Chloride 92.1 L Carbon Dioxide 34 H BUN Creatinine 0.3 L Glucose 173 H POC Glucose Lactic Acid Calcium Magnesium Ferritin Total Bilirubin Direct Bilirubin AST ALT Alkaline Phosphatase Lactate Dehydrogenase C-Reactive Protein Total Protein Albumin Triglycerides Lipase Arterial Blood Glucose Arterial Blood Ionized Calcium Urine WBC (Auto) Coronavirus (PCR) SARS-CoV-2 IgG Ab Crossmatch 07/04/20 07/04/20 07/04/20 06:18 11:39 17:18 WBC RBC Hgb Hct MCV MCH MCHC RDW Lymph % (Auto) Lymph # (Auto) [place] # (Auto) Baso # (Auto) Seg Neutrophils % Seg Neuts % (Manual) Lymphocytes % (Manual) Nucleated RBC % Seg Neutrophils # Seg Neutrophils # Man Lymphocytes # (Manual) Monocytes # (Manual) Eosinophils # (Manual) PT INR APTT D-Dimer Heparin Anti-Xa Level ABG pH POC ABG pCO2 POC ABG pO2 ABG pO2 ABG HCO3 ABG O2 Saturation ABG Base Excess ABG Hemoglobin ABG Oxyhemoglobin ABG Sodium ABG Potassium ABG Chloride ABG Glucose Oxyhemoglobin Carboxyhemoglobin Sodium Potassium Chloride Carbon Dioxide BUN Creatinine Glucose POC Glucose 158 H 257 H 148 H Lactic Acid Calcium Magnesium Ferritin Total Bilirubin Direct Bilirubin AST ALT Alkaline Phosphatase Lactate Dehydrogenase C-Reactive Protein Total Protein Albumin Triglycerides Lipase Arterial Blood Glucose Arterial Blood Ionized Calcium Urine WBC (Auto) Coronavirus (PCR) SARS-CoV-2 IgG Ab Crossmatch 07/04/20 07/05/20 07/05/20 23:23 03:13 05:18 WBC 13.3 H RBC 2.90 L Hgb 9.8 L Hct 29.3 L MCV 101 H MCH 34 H MCHC RDW 17.0 H Lymph % (Auto) 11.1 L Lymph # (Auto) [place] # (Auto) Baso # (Auto) Seg Neutrophils % 82.3 H Seg Neuts % (Manual) Lymphocytes % (Manual) Nucleated RBC % Seg Neutrophils # 10.9 H Seg Neutrophils # Man Lymphocytes # (Manual) Monocytes # (Manual) Eosinophils # (Manual) PT INR APTT D-Dimer Heparin Anti-Xa Level ABG pH 7.48 H POC ABG pCO2 52.0 H POC ABG pO2 ABG pO2 ABG HCO3 ABG O2 Saturation ABG Base Excess ABG Hemoglobin 10.0 L ABG Oxyhemoglobin ABG Sodium 131.0 L ABG Potassium 3.3 L ABG Chloride 93.0 L ABG Glucose 177 H Oxyhemoglobin Carboxyhemoglobin Sodium Potassium Chloride Carbon Dioxide BUN Creatinine Glucose POC Glucose 227 H Lactic Acid Calcium Magnesium Ferritin Total Bilirubin Direct Bilirubin AST ALT Alkaline Phosphatase Lactate Dehydrogenase C-Reactive Protein Total Protein Albumin Triglycerides Lipase Arterial Blood Glucose 177 H Arterial Blood Ionized Calcium Urine WBC (Auto) Coronavirus (PCR) SARS-CoV-2 IgG Ab Crossmatch 07/05/20 07/05/20 07/05/20 05:18 05:25 05:57 WBC RBC Hgb Hct MCV MCH MCHC RDW Lymph % (Auto) Lymph # (Auto) [place] # (Auto) Baso # (Auto) Seg Neutrophils % Seg Neuts % (Manual) Lymphocytes % (Manual) Nucleated RBC % Seg Neutrophils # Seg Neutrophils # Man Lymphocytes # (Manual) Monocytes # (Manual) Eosinophils # (Manual) PT INR APTT D-Dimer Heparin Anti-Xa Level ABG pH 7.519 H POC ABG pCO2 POC ABG pO2 198.6 H ABG pO2 ABG HCO3 ABG O2 Saturation ABG Base Excess ABG Hemoglobin 10.3 L ABG Oxyhemoglobin 98.7 H ABG Sodium 133.6 L ABG Potassium 3.3 L ABG Chloride 93.0 L ABG Glucose 175 H Oxyhemoglobin Carboxyhemoglobin Sodium Potassium 3.4 L Chloride 92.5 L Carbon Dioxide 36 H BUN Creatinine 0.3 L Glucose 148 H POC Glucose 170 H Lactic Acid Calcium Magnesium Ferritin Total Bilirubin Direct Bilirubin AST ALT Alkaline Phosphatase Lactate Dehydrogenase C-Reactive Protein Total Protein Albumin Triglycerides Lipase Arterial Blood Glucose 175 H Arterial Blood Ionized Calcium Urine WBC (Auto) Coronavirus (PCR) SARS-CoV-2 IgG Ab Crossmatch 07/05/20 07/05/20 07/06/20 11:37 18:39 00:04 WBC RBC Hgb Hct MCV MCH MCHC RDW Lymph % (Auto) Lymph # (Auto) [place] # (Auto) Baso # (Auto) Seg Neutrophils % Seg Neuts % (Manual) Lymphocytes % (Manual) Nucleated RBC % Seg Neutrophils # Seg Neutrophils # Man Lymphocytes # (Manual) Monocytes # (Manual) Eosinophils # (Manual) PT INR APTT D-Dimer Heparin Anti-Xa Level ABG pH POC ABG pCO2 POC ABG pO2 ABG pO2 ABG HCO3 ABG O2 Saturation ABG Base Excess ABG Hemoglobin ABG Oxyhemoglobin ABG Sodium ABG Potassium ABG Chloride ABG Glucose Oxyhemoglobin Carboxyhemoglobin Sodium Potassium Chloride Carbon Dioxide BUN Creatinine Glucose POC Glucose 195 H 200 H 222 H Lactic Acid Calcium Magnesium Ferritin Total Bilirubin Direct Bilirubin AST ALT Alkaline Phosphatase Lactate Dehydrogenase C-Reactive Protein Total Protein Albumin Triglycerides Lipase Arterial Blood Glucose Arterial Blood Ionized Calcium Urine WBC (Auto) Coronavirus (PCR) SARS-CoV-2 IgG Ab Crossmatch 07/06/20 07/06/20 07/06/20 05:25 06:52 06:52 WBC 15.8 H RBC 3.17 L Hgb 10.4 L Hct 31.5 L MCV 99 H MCH 33 H MCHC RDW 17.0 H Lymph % (Auto) Lymph # (Auto) [place] # (Auto) Baso # (Auto) Seg Neutrophils % Seg Neuts % (Manual) Lymphocytes % (Manual) Nucleated RBC % Seg Neutrophils # Seg Neutrophils # Man Lymphocytes # (Manual) Monocytes # (Manual) Eosinophils # (Manual) PT INR APTT D-Dimer Heparin Anti-Xa Level ABG pH POC ABG pCO2 POC ABG pO2 ABG pO2 ABG HCO3 ABG O2 Saturation ABG Base Excess ABG Hemoglobin ABG Oxyhemoglobin ABG Sodium ABG Potassium ABG Chloride ABG Glucose Oxyhemoglobin Carboxyhemoglobin Sodium 135 L Potassium 3.4 L Chloride 91.9 L Carbon Dioxide 38 H BUN Creatinine 0.3 L Glucose 189 H POC Glucose 165 H Lactic Acid Calcium Magnesium Ferritin Total Bilirubin Direct Bilirubin AST ALT Alkaline Phosphatase Lactate Dehydrogenase C-Reactive Protein Total Protein Albumin Triglycerides Lipase Arterial Blood Glucose Arterial Blood Ionized Calcium Urine WBC (Auto) Coronavirus (PCR) SARS-CoV-2 IgG Ab Crossmatch 07/06/20 13:01 WBC RBC Hgb Hct MCV MCH MCHC RDW Lymph % (Auto) Lymph # (Auto) [place] # (Auto) Baso # (Auto) Seg Neutrophils % Seg Neuts % (Manual) Lymphocytes % (Manual) Nucleated RBC % Seg Neutrophils # Seg Neutrophils # Man Lymphocytes # (Manual) Monocytes # (Manual) Eosinophils # (Manual) PT INR APTT D-Dimer Heparin Anti-Xa Level ABG pH POC ABG pCO2 POC ABG pO2 ABG pO2 ABG HCO3 ABG O2 Saturation ABG Base Excess ABG Hemoglobin ABG Oxyhemoglobin ABG Sodium ABG Potassium ABG Chloride ABG Glucose Oxyhemoglobin Carboxyhemoglobin Sodium Potassium Chloride Carbon Dioxide BUN Creatinine Glucose POC Glucose 195 H Lactic Acid Calcium Magnesium Ferritin Total Bilirubin Direct Bilirubin AST ALT Alkaline Phosphatase Lactate Dehydrogenase C-Reactive Protein Total Protein Albumin Triglycerides Lipase Arterial Blood Glucose Arterial Blood Ionized Calcium Urine WBC (Auto) Coronavirus (PCR) SARS-CoV-2 IgG Ab Crossmatch Chest x-ray: pending Allied health notes reviewed: nursing
[2020-07-07] MEDS: fentaNYL DRIP Premix 2,000 MCG/100 ML BAG IV SCH ×5 (00:28→22:21)
[2020-07-07] MEDS: INSULIN LISPRO 100 UNIT/ML VIAL 3 mL SUB-Q SCH ×4 (01:34→17:33)
[2020-07-07] MEDS: NORepinephrine/NS 4 MG-250 ML 4 MG/250 ML BAG IV SCH ×2 (03:22→19:46)
[2020-07-07] MEDS: dexmedeTOMIDine 1,000 MCG in SODIUM CHLORIDE 0.9% 250ML 250 ML IV SCH ×3 (04:03→22:05)
[2020-07-07] MEDS: methylPREDNISolone Sod Succinate 40 MG/1 ML INJ IV SCH ×2 (05:48→17:37)
[2020-07-07 06:14] LABS: Basophils % (Auto) 0.1 % (0.0-1.8); Eosinophils % (Auto) 0.2 % (0.0-4.3); Hematocrit 31.5 % (35.5-45.6); Hemoglobin 10.4 gm/dl (11.8-15.2); Lymphocytes % (Auto) 11.1 % (13.4-35.0); Mean Corpuscular HGB Conc 33 % (32-34); Mean Corpuscular Volume 100 fl (84-94); Monocytes % (Auto) 5.6 % (0.0-7.3); Platelet Count 322 K/mm3 (140-440); Red Blood Count 3.16 M/mm3 (3.65-5.03); Red Cell Distribution Width 16.7 % (13.2-15.2)
[2020-07-07 06:25] LABS: Blood Urea Nitrogen 15 mg/dL (9-20); Calcium 9.4 mg/dL (8.4-10.2); Hemolysis Index 12
[2020-07-07 06:29] LABS: BUN/Creatinine Ratio 75
[2020-07-07] MEDS: MIDODRINE 5 MG TAB PO SCH ×4 (07:46→17:37)
--- NOTE | 2020-07-07 08:28 | Progress Note ---
Assessment and Plan Assessment and plan: - Acute hypoxemic respiratory failure; Patient intubated and on vent support weaning protocol - need tach placement --Severe COVID-19 bilateral pneumonia Coronavirus protocol: IV steroid therapy, completed remdesivir, isolation precautions, contact precautions, prone positioning while in bed, pulmonary toilet. ID following SARS CoV-2 IgG positive patient is NOT a candidate for COVID convalescent plasma Covid test came negative on 06/30/20 --Severe sepsis/septic shock, due to COVID 19 PNA cont pressors as needed -- Acute kidney injury (SEN) , likely vasomotor nephropathy Resolved, IV fluids, avoid nephrotoxins --Acute on chronic anemia Guaiac test positive GI evaluation PPIs Continue to monitor -- Elevated liver function tests Suspected secondary to alcoholic liver disease. Supportive care, alcohol cessation, patient counseled. --Colonic pseudoobstruction likely from acute on chronic illness GI evaluation -recommend stool softeners Serial abdominal x-rays Monitor electrolytes and replete --History of alcohol dependence, status post CIWA protocol along with thiamine folic acid and multivitamin --right pneumothorax, s/p right chest tube placed on 06/21/20 Patient will need chest tube until patient is extubated -- DVT prophylaxis On therapeutic Lovenox The high probability of a clinically significant, sudden or life threatening deterioration of the [respiratory] system(s) required my full and direct attention, intervention and personal management. The aggregate critical care time was [31] minutes. This time is in addition to time spent performing reported procedures but includes the following: [x] Data Review and interpretation [x] Patient assessment and monitoring of vital signs [x] Documentation [x] Medication orders and management Brief History: 50 YO Male with Obesity, ETOH Dependence presents to ED for evaluation for shortness of breath, generalized weakness, fatigue, malaise, body aches, decreased exercise tolerance over the past 5 days. EMS was notified and upon arrival the patient was found to be in distress with a pulse oximetry of 76% on room air as well as fever to 103 F. In the ER chest x-ray and was found to have bilateral pneumonia. Patient admitted to medical floor and initiated on pneumonia protocol as well as COVID-19 protocol. Patient reports being diagnosed with coronavirus 2 days ago before admission. 05/10- 05/17: follow inflammatory markers, consulted ID/pulmonary. patient on high flow O2 05/18/20; patient feels slightly better still hypoxic, requiring continuous high flow oxygen and BiPAP Respiratory team trying to wean 05/19/20; patient is severely hypoxemic requiring continuous BiPAP today, complains of generalized weakness Trying to wean off high flow oxygen, patient is in isolation 05/20/2020; patient remains on high flow oxygen/BiPAP/100% nonrebreather. Still is hypoxemic Has sinus tachycardia patient in mild distress Wean off high flow oxygen as tolerated, pulmonary critical following 05/21/20; patient is critically ill, on continuous BiPAP remains hypoxemic in mild distress. Patient has severe Covid Pneumonia with persistent hypoxemia and poor prognosis. 05/22/2020: Patient was intubated last night because of persistent hypoxemia. 05/23-06/15: Remains on ventilatory support, unable to wean off from the vent. 06/16/2020. Patient currently on mechanical ventilation with AC mode rate 30, tidal volume 500, FiO2 70% and PEEP of 16. Continue anticoagulation with Lovenox 110 milligrams subcu every 12 hours. Wean sedation of fentanyl/Versed as needed. Currently with IV steroids of Solu-Medrol 40 mg IV every 12 hours. Patient will likely need tracheostomy per pulmonary recommendations. Continue pressors to maintain MAP > 65. 06/17/2020. Patient currently on mechanical ventilation with AC mode rate 30, tidal volume 500, FiO2 65% and PEEP of 16. Continue anticoagulation with Lovenox 110 milligrams subcu every 12 hours. Wean sedation of fentanyl/Versed as needed. Currently with IV steroids of Solu-Medrol 40 mg IV every 12 hours. Patient will likely need tracheostomy per pulmonary recommendations. 06/18/2020. Patient currently on mechanical ventilation with AC mode rate 30, tidal volume 500, FiO2 70% and PEEP of 16. Continue Lovenox for anticoagulation and fentanyl/Versed for sedation. Wean steroids per pulmonary. CIWA protocol initiated for history of EtOH dependence 06/19/2020. Patient currently on mechanical ventilation with AC mode rate 30, tidal volume 500, FiO2 60% and PEEP of 16. Wean FiO2 as tolerated per protocol. Continue Lovenox for anticoagulation and fentanyl/Versed for sedation. Wean steroids per pulmonary. CIWA protocol initiated for history of EtOH dependence 06/20/2020. Patient currently on mechanical ventilation with AC mode rate 30, tidal volume 500, FiO2 60% and PEEP of 16. Wean FiO2 as tolerated, SBT per protocol. Continue Lovenox for anticoagulation and fentanyl/Versed for sedation. Wean steroids per pulmonary. Continue pressors to maintain MAP > 65 mmHg. Patient remains on ETT. Consider tracheostomy placement once oxygenation is better per pulmonary. CIWA protocol initiated for history of EtOH dependence. 06/21/2020. Patient with a small apical pneumothorax discovered yesterday. General surgery consulted and consider placing chest tube. Follow-up serial chest x-ray patient currently on mechanical ventilation with AC mode rate 30, tidal volume 500, FiO2 60% and PEEP of 16. Wean FiO2 as tolerated, SBT per protocol. Continue Lovenox for anticoagulation and fentanyl/Versed for sedation. Wean steroids per pulmonary. Continue pressors to maintain MAP > 65 mmHg. Patient remains on ETT. Consider tracheostomy placement once oxygenation is better per pulmonary. CIWA protocol initiated for history of EtOH dependence. 06/22. Status post right chest tube placement yesterday. Remains mechanically ventilated on pressors. Examination today shows slightly distended abdomen. KUB ordered. Awaiting stool guaiac. Plan to get a GI evaluation. 06/23. Has colonic distention on the x-ray. Discussed with GI-advised stool softeners for now and close monitoring. No indication for colonic decompression at this time. Guaiac test is positive. No emergent indication for endoscopy at this point as per GI. Continue to monitor hemoglobin. 06/24. Remains intubated. On pressors. GI following for positive guaiac stool and anemia, and colonic distention. 06/25. Repeat abdominal xray ordered. Remains on mechanical ventilation. 06/26. Abdominal xray - resolved colonic distension. Mechanically ventilated. 06/27. Plan for trach and PEG. 06/28: Awaiting trach and Peg. Some Bm REPORTED, will continue to monitor 06/29: Resume care, patient remains on ventilator support, waiting on trach and PEG placement. BM reported by the RN, continue to monitor. 06/30: Unable to wean off from vent, patient will need trach and PEG. Continue supportive care, tolerating tube feed. Monitor CBC and BMP 07/01: Continue mechanical ventilation, tube feeding as tolerated. Sedation as needed per mechanical ventilation protocol. Waiting on trach and PEG placement. 07/02: Continue current management, tube feeding, monitor CBC and BMP. Need tra ch and PEG-waiting on scheduling. Pulmonary critical care following. 07/03: wean off vent as tolerated. follow clinically. need trach and PEG 07/04: unable to wean. CT head ordered to assess for any changes but too unstable to do the test. need trach and PEG. 07/05: plan for trach/peg - GS following. off pressor - on midodrine. renal function stable. intubated, but alert and can follow minor commend. discussed with daughter by phone. 07/06/2020; Dr. Márquez discussed with patient's daughter about trach but the daughter needs time to think about it. Patient was intubated and alert, FiO2 40 %. 07/07/2020; patient was intubated and alert, FiO2 40%. Patient was diaphoretic, tachycardic, and EKG was done which was abnormal for me. I called messenger floorperson Dr Louis saw the EKG and said it is normal EKG, and the findings are abnormal. History Interval history: Patient was seen and evaluated this morning Patient was intubated, FiO2 40% Patient was diaphoretic and tachycardic Hospitalist Physical - Physical exam Narrative exam: General appearance: Present: no distress, obese, intubated, alert - EENT Eyes: Present: PERRL ENT: Et tube in place - Neck Neck: Present: supple, - Respiratory Respiratory effort: on mechanical ventilation Respiratory: bilateral: diminished, rhonchi, CT tube in place - Cardiovascular Heart Sounds: Present: S1 & S2. Absent: rub, click - Extremities Extremities: pulses symmetrical, No edema Peripheral Pulses: within normal limits - Abdominal General gastrointestinal: Present: soft, non-tender, mild distended, normal bowel sounds Male genitourinary: Present: normal - Integumentary Integumentary: Present: clear, warm, dry - Musculoskeletal Musculoskeletal: generalized weakness - Psychiatric Psychiatric: Unable to assess - Neurologic Neurologic: Intubated but alert - Constitutional Vitals: Temp Pulse Resp BP Pulse Ox 98.2 F 123 H 29 H 176/95 94 07/07/20 04:00 07/07/20 07:51 07/07/20 06:00 07/07/20 07:51 07/07/20 07:51 General appearance: Present: no acute distress, other Results - Labs CBC & Chem 7: 07/07/20 05:35 07/07/20 05:35 Labs: Laboratory Last Values WBC 17.6 K/mm3 (4.5-11.0) H 07/07/20 05:35 RBC 3.16 M/mm3 (3.65-5.03) L 07/07/20 05:35 Hgb 10.4 gm/dl (11.8-15.2) L 07/07/20 05:35 Hct 31.5 % (35.5-45.6) L 07/07/20 05:35 MCV 100 fl (84-94) H 07/07/20 05:35 MCH 33 pg (28-32) H 07/07/20 05:35 MCHC 33 % (32-34) 07/07/20 05:35 RDW 16.7 % (13.2-15.2) H 07/07/20 05:35 Plt Count 322 K/mm3 (140-440) 07/07/20 05:35 Lymph % (Auto) 11.1 % (13.4-35.0) L 07/07/20 05:35 [place] % (Auto) 5.6 % (0.0-7.3) 07/07/20 05:35 Eos % (Auto) 0.2 % (0.0-4.3) 07/07/20 05:35 Baso % (Auto) 0.1 % (0.0-1.8) 07/07/20 05:35 Lymph # (Auto) 2.0 K/mm3 (1.2-5.4) 07/07/20 05:35 [place] # (Auto) 1.0 K/mm3 (0.0-0.8) H 07/07/20 05:35 Eos # (Auto) 0.0 K/mm3 (0.0-0.4) 07/07/20 05:35 Baso # (Auto) 0.0 K/mm3 (0.0-0.1) 07/07/20 05:35 Add Manual Diff Complete 07/01/20 06:41 Total Counted 100 07/01/20 06:41 Seg Neutrophils % 83.0 % (40.0-70.0) H 07/07/20 05:35 Seg Neuts % (Manual) 82.0 % (40.0-70.0) H 07/01/20 06:41 Band Neutrophils % 2.0 % 07/01/20 06:41 Lymphocytes % (Manual) 7.0 % (13.4-35.0) L 07/01/20 06:41 Reactive Lymphs % (Man) 0 % 06/15/20 Unknown Monocytes % (Manual) 6.0 % (0.0-7.3) 07/01/20 06:41 Eosinophils % (Manual) 3.0 % (0.0-4.3) 07/01/20 06:41 Basophils % (Manual) 0 % (0.0-1.8) 06/15/20 Unknown Metamyelocytes % 1.0 % 06/28/20 06:35 Myelocytes % 0 % 06/15/20 Unknown Promyelocytes % 0 % 06/15/20 Unknown Blast Cells % 0 % 06/15/20 Unknown Nucleated RBC % 1.0 % (0.0-0.9) H 07/01/20 06:41 Seg Neutrophils # 14.6 K/mm3 (1.8-7.7) H 07/07/20 05:35 Seg Neutrophils # Man 14.8 K/mm3 (1.8-7.7) H 07/01/20 06:41 Band Neutrophils # 0.4 K/mm3 07/01/20 06:41 Lymphocytes # (Manual) 1.3 K/mm3 (1.2-5.4) 07/01/20 06:41 Abs React Lymphs (Man) 0.0 K/mm3 07/01/20 06:41 Monocytes # (Manual) 1.1 K/mm3 (0.0-0.8) H 07/01/20 06:41 Eosinophils # (Manual) 0.5 K/mm3 (0.0-0.4) H 07/01/20 06:41 Basophils # (Manual) 0.0 K/mm3 (0.0-0.1) 07/01/20 06:41 Metamyelocytes # 0.0 K/mm3 07/01/20 06:41 Myelocytes # 0.0 K/mm3 07/01/20 06:41 Promyelocytes # 0.0 K/mm3 07/01/20 06:41 Blast Cells # 0.0 K/mm3 07/01/20 06:41 WBC Morphology Not Reportable 07/01/20 06:41 Hypersegmented Neuts Not Reportable 07/01/20 06:41 Hyposegmented Neuts Not Reportable 07/01/20 06:41 Hypogranular Neuts Not Reportable 07/01/20 06:41 Smudge Cells Not Reportable 07/01/20 06:41 Toxic Granulation Not Reportable 07/01/20 06:41 Toxic Vacuolation Not Reportable 07/01/20 06:41 Dohle Bodies Not Reportable 07/01/20 06:41 Pelger-Huet Anomaly Not Reportable 07/01/20 06:41 Jason Rods Not Reportable 07/01/20 06:41 Platelet Estimate Consistent w auto 07/01/20 06:41 Clumped Platelets Not Reportable 07/01/20 06:41 Plt Clumps, EDTA Not Reportable 07/01/20 06:41 Large Platelets Not Reportable 07/01/20 06:41 Giant Platelets Not Reportable 07/01/20 06:41 Platelet Satelliting Not Reportable 07/01/20 06:41 Plt Morphology Comment Not Reportable 07/01/20 06:41 RBC Morphology Not Reportable 07/01/20 06:41 Dimorphic RBCs Not Reportable 07/01/20 06:41 Polychromasia Few 07/01/20 06:41 Hypochromasia 1+ 07/01/20 06:41 Poikilocytosis Not Reportable 07/01/20 06:41 Anisocytosis Few 07/01/20 06:41 Microcytosis Not Reportable 07/01/20 06:41 Macrocytosis Not Reportable 07/01/20 06:41 Spherocytes Rare 07/01/20 06:41 Pappenheimer Bodies Not Reportable 07/01/20 06:41 Sickle Cells Not Reportable 07/01/20 06:41 Target Cells Few 07/01/20 06:41 Stomatocytes Few 06/14/20 07:15 Tear Drop Cells Not Reportable 07/01/20 06:41 Ovalocytes Not Reportable 07/01/20 06:41 Helmet Cells Few 07/01/20 06:41 Sinclair-Goldfield Bodies Not Reportable 07/01/20 06:41 [place] Rings Not Reportable 07/01/20 06:41 [place] Cells Not Reportable 07/01/20 06:41 Bite Cells Not Reportable 07/01/20 06:41 Crenated Cell Not Reportable 07/01/20 06:41 Elliptocytes Not Reportable 07/01/20 06:41 Acanthocytes (Spur) Not Reportable 07/01/20 06:41 Rouleaux Not Reportable 07/01/20 06:41 Hemoglobin C Crystals Not Reportable 07/01/20 06:41 Schistocytes Rare 07/01/20 06:41 Malaria parasites Not Reportable 07/01/20 06:41 Josue Bodies Not Reportable 07/01/20 06:41 Hem Pathologist Commnt No 07/01/20 06:41 PT 11.8 Sec. (12.2-14.9) L 06/22/20 14:29 INR 0.88 (0.87-1.13) 06/22/20 14:29 APTT 23.5 Sec. (24.2-36.6) L 06/22/20 14:29 D-Dimer 1887.82 ng/mlDDU (0-234) H 05/20/20 08:16 Heparin Anti-Xa Level 0.37 U.I./ml (0.3-0.7) 07/02/20 16:08 ABG pH 7.519 (7.320-7.450) H 07/05/20 05:25 POC ABG pCO2 47.1 mmHg (32.0-48.0) 07/05/20 05:25 ABG pCO2 69.8 mm Hg 06/22/20 03:50 POC ABG pO2 198.6 mmHg (83-108) H 07/05/20 05:25 ABG pO2 89.6 mm Hg (80.0-90.0) 06/22/20 03:50 POC ABG HCO3 37.5 07/05/20 05:25 ABG HCO3 47.5 mmol/L (20.0-26.0) H 06/22/20 03:50 ABG O2 Saturation 97.1 % (95.0-99.0) 06/22/20 03:50 ABG O2 Content 6.0 (0.0-44) 06/22/20 03:50 POC ABG Base Excess 13.2 07/05/20 05:25 ABG Base Excess 22.0 mmol/L (-2.0-3.0) H 06/22/20 03:50 ABG Hemoglobin 10.3 (12.0-17.5) L 07/05/20 05:25 ABG Oxyhemoglobin 98.7 (94-98) H 07/05/20 05:25 ABG Carboxyhemoglobin 2.6 % (0.0-5.0) 06/22/20 03:50 ABG Methemoglobin 0.3 (0.0-1.5) 07/05/20 05:25 ABG Sodium 133.6 mmol/L (136.0-145.0) L 07/05/20 05:25 ABG Potassium 3.3 mmol/L (3.40-4.50) L 07/05/20 05:25 ABG Chloride 93.0 mmol/L (98-107) L 07/05/20 05:25 ABG Glucose 175 mg/dL (65-95) H 07/05/20 05:25 Oxyhemoglobin 94.1 % (95.0-99.0) L 06/22/20 03:50 Carboxyhemoglobin 0.8 (0.5-1.5) 07/05/20 05:25 FiO2 40 07/05/20 05:25 Sodium 135 mmol/L (137-145) L 07/07/20 05:35 Potassium 3.4 mmol/L (3.6-5.0) L 07/07/20 05:35 Chloride 94.3 mmol/L (98-107) L 07/07/20 05:35 Carbon Dioxide 32 mmol/L (22-30) H 07/07/20 05:35 Anion Gap 12 mmol/L 07/07/20 05:35 BUN 15 mg/dL (9-20) 07/07/20 05:35 Creatinine 0.2 mg/dL (0.8-1.3) L 07/07/20 05:35 Estimated GFR > 60 ml/min 07/07/20 05:35 BUN/Creatinine Ratio 75 % 07/07/20 05:35 Glucose 240 mg/dL (75-100) H 07/07/20 05:35 POC Glucose 191 mg/dL (70-105) H 07/07/20 05:39 Lactic Acid 1.80 mmol/L (0.7-2.0) 05/09/20 Unknown Calcium 9.4 mg/dL (8.4-10.2) 07/07/20 05:35 Phosphorus 3.10 mg/dL (2.5-4.5) 06/15/20 04:00 Magnesium 1.70 mg/dL (1.7-2.3) 06/30/20 07:00 Ferritin 1496.0 ng/mL (30.0-300.0) H 06/14/20 11:50 Total Bilirubin 0.60 mg/dL (0.1-1.2) 06/30/20 07:00 Direct Bilirubin 0.6 mg/dL (0-0.2) H 05/11/20 07:30 Indirect Bilirubin 0.9 mg/dL 05/11/20 07:30 AST 21 units/L (5-40) 06/30/20 07:00 ALT 30 units/L (7-56) 06/30/20 07:00 Alkaline Phosphatase 81 units/L (35-129) 06/30/20 07:00 Lactate Dehydrogenase 705 units/L (91-180) H 05/20/20 08:16 C-Reactive Protein 3.10 mg/dL (0.00-1.30) H 05/20/20 08:16 Total Protein 6.3 g/dL (6.3-8.2) 06/30/20 07:00 Albumin 2.8 g/dL (3.9-5) L 06/30/20 07:00 Albumin/Globulin Ratio 0.8 % 06/30/20 07:00 Triglycerides 452 mg/dL (2-149) H 06/30/20 07:00 Lipase 86 units/L (13-60) H 06/29/20 09:36 Procalcitonin 0.94 ng/mL (<0.15) 06/14/20 11:50 Arterial Blood Glucose 175 mg/dL (65-95) H 07/05/20 05:25 Arterial Blood Ionized Calcium 4.7 mg/dL (4.6-5.3) 07/05/20 05:25 Urine Color Fauzia (Yellow) 05/10/20 Unknown Urine Turbidity Clear (Clear) 05/10/20 Unknown Urine pH 5.0 (5.0-7.0) 05/10/20 Unknown Ur Specific [place] 1.019 (1.003-1.030) 05/10/20 Unknown Urine Protein 100 mg/dl mg/dL (Negative) 05/10/20 Unknown Urine Glucose (UA) Neg mg/dL (Negative) 05/10/20 Unknown Urine Ketones Neg mg/dL (Negative) 05/10/20 Unknown Urine Blood Lg (Negative) 05/10/20 Unknown Urine Nitrite Neg (Negative) 05/10/20 Unknown Urine Bilirubin Neg (Negative) 05/10/20 Unknown Urine Urobilinogen 2.0 mg/dL (<2.0) 05/10/20 Unknown Ur Leukocyte Esterase Neg (Negative) 05/10/20 Unknown Urine WBC (Auto) 11.0 /HPF (0.0-6.0) H 05/10/20 Unknown Urine RBC (Auto) 2.0 /HPF (0.0-6.0) 05/10/20 Unknown U Epithel Cells (Auto) 1.0 /HPF (0-13.0) 05/10/20 Unknown Urine Bacteria (Auto) 1+ /HPF (Negative) 05/10/20 Unknown Urine Mucus Few /HPF 05/10/20 Unknown Plasma/Serum Alcohol < 0.01 % (0-0.07) 05/09/20 14:20 Coronavirus (PCR) Negative (Negative) 06/30/20 10:28 SARS-CoV-2 IgG Ab Reactive (NonReactive) A 05/11/20 07:30 Blood Type B POSITIVE 06/21/20 14:18 Antibody Screen Negative 06/21/20 14:18 Crossmatch See Detail 06/21/20 14:18 - Diagnostic Impressions Diagnostic Impressions: Echocardiogram 05/20/20 13:02 Transthoracic Echocardiogram Indication: CHF BP: 97/73 Conclusions *The study quality is technically very difficult and limited. *The left ventricular chamber size, wall thickness and systolic function are within normal limits. There are no wall motion abnormalities observed. Ejection fraction is normal. *The estimated ejection fraction is 60-65%. *The pericardium appears normal. Findings Procedure Info: The study quality is technically difficult. Left Ventricle: The left ventricular chamber size, wall thickness and systolic function are within normal limits. There are no wall motion abnormalities observed. Ejection fraction is normal. The estimated ejection fraction is 60-65%. Abnormal left ventricular diastolic filling is observed, consistent with impaired relaxation. Left Atrium: The left atrium is normal in size with no visual thrombus identified. Right Ventricle: The right ventricle is not well visualized. Right Atrium: The right atrium is not well visualized. Aortic Valve: The aortic valve is trileaflet. The leaflets are thin with normal excursion. There is no aortic stenosis or regurgitation present. Mitral Valve: The mitral valve appears normal in structure and function. Tricuspid Valve: The tricuspid valve appears normal in structure and function. Unable to estimate the right ventricular systolic pressure. Pulmonic Valve: The pulmonic valve is not well visualized. There is no evidence of pulmonic regurgitation. There is no pulmonic stenosis. Pericardium: The pericardium appears normal. Pulmonary Artery: The main pulmonary artery is not well visualized. Venous: The inferior vena cava appears normal in size. Measurements Chambers 2D Name Value Normal Range IVSd (2D) 0.83 cm (0.6 - 1.1) LVPWd (2D) 0.83 cm (0.6 - 1.1) LVIDd (2D) 3.88 cm (3.7 - 5.6) LVIDs (2D) 2.46 cm (2 - 3.8) LV FS (2D) 36.52 % - EF Teichholz (2D) 66.97 % - Ao root diameter (2D) 3.47 cm (2 - 3.7) Volumes/Mass Name Value Normal Range LA ESV SP 4CH (A/L) 22.4 ml - LA ESV SP 2CH (A/L) 22.89 ml - LA ESV BP (A/L) 23.06 ml - LA ESV SP 4CH (MOD) 21.09 ml - LA ESV SP 2CH (MOD) 22.44 ml - Diastolic/Systolic Function Name Value Normal Range MV E-wave Vmax 0.48 m/sec - MV deceleration time 156.3 msec - MV A-wave Vmax 0.59 m/sec - MV E:A ratio 0.81 ratio - Aortic Valve Name Value Normal Range AV Vmax 0.97 m/sec - AV VTI 14.49 cm - AV peak gradient 3.73 mmHg - AV mean gradient 1.89 mmHg - LVOT diameter 2.09 cm - LVOT Vmax 0.72 m/sec - LVOT VTI 10.21 cm - LVOT peak gradient 2.05 mmHg - LVOT mean gradient 1.03 mmHg - SV LVOT 35.17 ml - INNA (continuity Vmax) 2.55 cm2 - INNA (continuity VTI) 2.43 cm2 - Tricuspid Valve Name Value Normal Range TV E-wave Vmax 0.37 m/sec - Pulmonic Valve/Qp:Qs Name Value Normal Range PV Vmax 0.72 m/sec - PV peak gradient 2.06 mmHg - RVOT Vmax 0.85 m/sec - RVOT VTI 9.89 cm - RVOT peak gradient 2.9 mmHg - PV acceleration time 72.31 msec - Cantor/IV: Voiding Method Condom Catheter IV Catheter Type [Right Upper PICC Line arm] IV Catheter Type [Right CVL Internal Jugular] IV Catheter Type [Right Peripheral IV Forearm] IV Catheter Type [Left Forearm Peripheral IV ] IV Catheter Type [Left Wrist] INT / Saline Lock IV Catheter Type [Right Hand] INT / Saline Lock IV Catheter Type [Left Hand] INT / Saline Lock IV Catheter Type [Left Peripheral IV Antecubital] Active Medications - Current Medications Current Medications: Generic Name Dose Route Start Last Admin Trade Name Freq PRN Reason Stop Dose Admin Acetaminophen 650 mg 06/14/20 10:07 06/21/20 20:21 Tylenol FEEDTUBE 650 mg Q4H PRN Administration Pain, Mild (1-3) Alprazolam 0.25 mg 05/20/20 17:53 07/03/20 10:33 Alprazolam 0.25 Mg Tab PO 0.25 mg Q8H PRN Administration Anxiety Lipase/Protease/Amylase 1 each 05/22/20 13:01 Lipase 10,500/Protease 25,000/Amylase 43,750 (Units) Dr Newell FEEDTUBE PRN PRN For Clogged Feeding Tube Bisacodyl 10 mg 06/26/20 22:00 07/06/20 21:21 Bisacodyl 10 Mg Rect Supp [place] 10 mg BID DESIRE Administration Docusate Sodium 100 mg 05/28/20 14:00 07/06/20 21:21 Docusate Sodium 100 Mg/10 Ml Oral Liqd PO Not Given BID DESIRE Enoxaparin Sodium 110 mg 07/03/20 22:00 07/06/20 21:20 Enoxaparin 120 Mg/0.8 Ml Inj SUB-Q 110 mg Q12HR DESIRE Administration Protocol Fentanyl 50 mcg 06/22/20 09:48 Fentanyl 100 Mcg/2 Ml Inj IV Q10MIN PRN ANALGESIA Folic Acid 1 mg 05/09/20 15:36 07/06/20 10:32 Folic Acid 1 Mg Tab PO 1 mg QDAY DESIRE Administration Hydrophilic Ointment 1 applic 05/21/20 20:33 Lip Therapy Vaseline TP Q2HR PRN Dry Lips Midazolam HCl 100 mg/ Sodium 100 mls @ 2 mls/hr 06/02/20 14:00 07/06/20 21:34 Chloride IV 4 mg/hr TITR DESIRE 4 mls/hr Titration Protocol 2 MG/HR Norepinephrine 4 mg in 250 mls @ 7.5 mls/hr 06/04/20 16:00 07/07/20 03:22 Levophed Drip 4 Mg/Ns 250 Ml IV 4 mcg/min TITR DESIRE 15 mls/hr Administration Protocol 2 MCG/MIN Fentanyl Citrate 2,000 mcg in 100 mls @ 5.32 mls/hr 06/09/20 14:00 07/07/20 06:55 Fentanyl Drip Premix IV 3 mcg/kg/hr TITR DESIRE 15.96 mls/hr Administration Protocol 1 MCG/KG/HR Vasopressin 20 unit/ Sodium 101 mls @ 9.09 mls/hr 06/09/20 18:00 Chloride IV TITR DESIRE Protocol 0.03 UNITS/MIN Dexmedetomidine HCl 1,000 mcg/ 260 mls @ 5.668 mls/hr 07/05/20 08:30 07/07/20 04:03 Sodium Chloride IV 1.2 mcg/kg/hr TITRATE DESIRE 34.008 mls/hr Administration Protocol 0.2 MCG/KG/HR Insulin Glargine 30 units 06/30/20 22:00 07/06/20 21:32 Insulin Glargine 100 Units/Ml SUB-Q 30 units QHS DESIRE Administration Insulin Glargine 5 units 07/05/20 14:00 07/06/20 10:31 Insulin Glargine 100 Units/Ml SUB-Q 5 units DAILY DESIRE Administration Insulin Human Lispro 0 unit 05/29/20 14:00 07/07/20 05:47 Insulin Lispro 100 Unit/Ml Vial 3 Ml SUB-Q 3 unit Q6H DESIRE Administration Protocol Lansoprazole 30 mg 06/28/20 10:00 07/06/20 10:31 Lansoprazole 30 Mg Solutab FEEDTUBE 30 mg QDAY DESIRE Administration Lorazepam 1 mg 07/04/20 01:10 07/06/20 18:11 Lorazepam 2 Mg/Ml Vial IV 1 mg Q1HR PRN Administration agitation Methylprednisolone Sodium Succinate 40 mg 05/20/20 18:00 07/07/20 05:48 Methylprednisolone Sod Succinate 40 Mg/1 Ml Inj IV 40 mg Q12H DESIRE Administration Metoprolol Tartrate 5 mg 07/02/20 17:17 07/03/20 09:03 Metoprolol Tartrate 5 Mg/5 Ml Inj IV 5 mg Q6HR PRN Administration Tachyarrhythmias Midodrine 10 mg 06/30/20 16:00 07/07/20 07:46 Midodrine 5 Mg Tab PO Not Given TID@0800,1200,1600 [facility] Multi-Ingred Cream/Lotion/Oil/Oint 1 applic 05/21/20 20:33 Mineral Oil/Petrolatum, White Ophth Oint 3.5 Gm OU Q4HR PRN Dry Eye(s) Phenobarbital 32.4 mg 07/04/20 22:00 07/06/20 21:21 Phenobarbital 32.4 Mg Tab PO 32.4 mg BID [facility] Administration Quetiapine Fumarate 100 mg 07/02/20 23:15 07/06/20 20:08 Quetiapine 100 Mg Tab PO 100 mg TID [facility] Administration Quetiapine Fumarate 200 mg 07/02/20 23:00 07/06/20 20:08 Quetiapine 200 Mg Tab PO 200 mg TID [facility] Administration Senna 17.2 mg 06/07/20 10:00 07/06/20 21:21 Sennosides 8.6 Mg Tab PO 17.2 mg BID [facility]IRE Administration Simple Syrup 15 ml 05/22/20 13:01 Simple Syrup 15 Ml FEEDTUBE PRN PRN Hypoglycemia Simple Syrup 30 ml 05/22/20 13:01 Simple Syrup 15 Ml FEEDTUBE PRN PRN Hypoglycemia Sodium Bicarbonate 325 mg 05/22/20 13:01 Sodium Bicarbonate 325 Mg Tab FEEDTUBE PRN PRN For Clogged Feeding Tube Sodium Chloride 10 ml 05/09/20 22:00 07/06/20 11:23 Sodium Chloride 0.9% 10 Ml Flush Syringe IV 10 ml BID DESIRE Administration Nutrition/Malnutrition Assess - Dietary Evaluation Nutrition/Malnutrition Findings: Nutrition Notes Start: 05/17/20 14:10 Freq: Status: Active Protocol: Document 06/30/20 11:31 LM (Rec: 06/30/20 11:33 LM [id number]) Nutrition Notes Initial or Follow up Reassessment Current Diagnosis Sepsis,Respiratory Failure Other Pertinent Diagnosis Bilat pneu, COVID-19 (+), EtOH dependence Current Diet Vital HP at 65 ml/hr (goal rate) Labs/Tests BG 260 Cr 0.3 Pertinent Medications Propofol Solumedrol Humalog Height 6 ft Weight 108 kg [place] Body Weight (kg) 80.90 BMI 32.3 Weight Status Obese Subjective/Other Information Observed TF running at goal rate. Percent of energy/protein needs met: 85%/84% Burn Absent Trauma Absent GI Symptoms None Current % PO Negligible Minimum of two criteria No physical signs of malnutrition #1 Nutrition Diagnosis Inadequate oral intake Diagnosis Progress(for reassessment Continues documentation) Is patient on ventilator? Yes Is Patient Ambulatory and/or Out of Bed No REE-([place]-confined to bed) 2371.200 Kcal/Kg value to use for calculation 17 Approximate Energy Requirements Using 1836 kcal/Kg Calculation Used for Recommendations Kcal/kg Additional Notes Pro needs >2g/kg IBW: at least 162g/day Fluid needs 1ml/kcal Nutrition Intervention Change Diet Order: Continue TF Nutrition Support: Vital HP at 65ml/hr with 50ml water flush q4h. Kcal 1,560 Protein (gm) 136 Fluid (mL) 1,304 Goal #1 TF tolerance Goal #2 TF (at goal rate) to meet at least 75% energy and pro needs Anticipated Discharge Needs: Unable to identify at this time Follow-Up By: 07/07/20 Additional Comments F/U TF tolerance
[2020-07-07] MEDS: LORazepam 2 MG/ML VIAL IV PRN ×2 (09:32→12:19)
[2020-07-07] MEDS: fentaNYL 100 MCG/2 ML INJ IV PRN ×2 (09:32→12:19)
[2020-07-07] MEDS: ENOXAPARIN 120 MG/0.8 ML INJ SUB-Q SCH (09:33)
[2020-07-07] MEDS: DOCUSATE SODIUM 100 MG/10 ML ORAL LIQD PO SCH ×2 (09:34→22:15)
[2020-07-07] MEDS: QUEtiapine 200 MG TAB PO SCH ×3 (09:36→19:51)
[2020-07-07] MEDS: PHENobarbital 32.4 MG TAB PO SCH ×2 (09:37→22:15)
[2020-07-07] MEDS: QUEtiapine 100 MG TAB PO SCH ×3 (09:37→19:51)
[2020-07-07] MEDS: SENNOSIDES 8.6 MG TAB PO SCH ×2 (09:37→22:15)
[2020-07-07] MEDS: INSULIN GLARGINE 100 UNITS/ML SUB-Q SCH ×2 (09:37→22:15)
[2020-07-07] MEDS: LANSOPRAZOLE 30 MG SOLUTAB FEEDTUBE SCH (09:37)
[2020-07-07] MEDS: FOLIC ACID 1 MG TAB PO SCH (09:37)
[2020-07-07] MEDS ORDERED: POTASSIUM CHLORIDE 20 MEQ PACKET FEEDTUBE ONE (10:00)
[2020-07-07] MEDS: MIDAZOLAM 100 MG in SODIUM CHLORIDE 0.9% 80 ML IV SCH (12:18)
--- NOTE | 2020-07-07 15:44 | Progress Note ---
Assessment and Plan Acute hypoxemic respiratory failure due to COVID-19 Severe COVID infection Severe Sepsis Bilateral pneumonia Acute kidney injury (SEN) with acute tubular necrosis (ATN)-improving h/o Alcohol dependence Elevated liver function tests probably secondary COVID Get CT head without contrast r/o intracranial process for ongoing agitation- r eordered Re-Consult surgery for trach/PEG placement- ventilatory requirements are down Continue to monitor QTc while on high doses of Seroquel Continue with chest tube to suction, will keep chest tube in while on MVS Decrease PEEP is down to 6, get ABG in the morning Continue with bowel regimen-continue rectal suppositories + senna. Continue to wean supplemental oxygen for O2 sats>90% Continue lung protective strategies Wean vasopressor support as tolerated to keep MAP>65 CXR as clinically indicated - VAP bundle addressed, aspiration precautions HOB >40 - Continue lung protective strategies, permissive hypercapnic acceptable. - continue bronchodilators with pulmonary hygiene per RT - wean per pulmonary driven protocols otherwise - accuchecks with glycemic control per SSI (While critically ill target blood glucose of 140-180 mg/dL; avoid hypoglycemia) - continue enteral nutritional support at goal rate as tolerated - Prone positioning as tolerated and indicated - Monitor liver function test , avoid hepatotoxic agents - Avoid nephrotoxins, renally dose all medications, conservative fluid management - continue to avoid benzodiazepines, reduce the possibility of delirium - prn analgesia per CPOT score - Maintenance of sleep-wake cycle, avoid delirium - continue to avoid benzodiazepines, reduce the possibility of delirium - aspiration precautions -Stress ulcer prophylaxis - PT/OT/ROM exercises - continue mobility protocols for pressure ulcer prevention -CXR, ABG as clinically indicated -CBC, BMP as clinically indicated -Supportive transfusions to keep HgB >7g/dL - Monitor hemodynamics closely - continue other care per attending / other consultants COVID SPECIFIC INTERVENTIONS - SARS CoV-2 IgG positive patient is NOT a candidate for COVID convalescent plasma -Completed remdesivir -Steroids -Monitor inflammatory markers per facility protocol- ferritin, Ddimer, CRP, LDH -Continue anticoagulation per System Protocol based on d-dimer -Continue contact and airborne isolation .... Re-evaluate in am & prn CONDITION: CRITICAL PROGNOSIS: GUARDED CODE STATUS: FULL CODE The high probability of a clinically significant, sudden or life-threatening deterioration of the [respiratory, cardiovascular, hematologic & neurologic] system(s) required my full and direct attention, intervention and personal management. The aggregate critical care time was [32] minutes without overlap. Time includes spent on; [x] Data Review and interpretation [x] Patient assessment and monitoring of vital signs [x] Documentation [x] Medication orders and management Subjective Date of service: 07/07/20 Principal diagnosis: Ac hypoxemic resp failure; COVID-19; Severe Sepsis; Shaggy PNA; Alcohol Abuse Interval history: Patient is seen today for: Acute hypoxemic respiratory failure due to COVID-19; Severe Sepsis; Bilateral pneumonia; Alcohol dependence; Elevated liver function tests Seen and examined at bedside; 24hour events reviewed; nursing and respiratory care staff consulted; no adverse overnight events reported to me; resting in bed; remains on MVS , FiO2 at 40% PEEP +8. No reported fevers, no vomiting, some residual abdominal distension Better oxygenation and synchrony with sedation. Continues to intermittently require vasopressor support for sedation induced hypotension Currently on Norepinephrine at 6mcg RN states"he is just not right". Cardiology saw him earlier, but no new recommendations Remains on sedation- Midazolam and Fentanyl. Follow up COVID testing, negative Objective Vital Signs - 12hr 07/07/20 07/07/20 07/07/20 03:45 04:00 04:15 Temperature 98.2 F Pulse Rate 65 78 76 Pulse Rate [ 91 H From Monitor] Respiratory 17 31 H 22 Rate Blood Pressure 120/72 105/68 110/74 O2 Sat by Pulse 97 98 97 Oximetry 07/07/20 07/07/20 07/07/20 04:30 04:46 05:00 Temperature Pulse Rate 70 99 H 115 H Pulse Rate [ From Monitor] Respiratory 21 24 27 H Rate Blood Pressure 110/71 147/87 138/77 O2 Sat by Pulse 97 100 96 Oximetry 07/07/20 07/07/20 07/07/20 05:15 05:16 05:30 Temperature Pulse Rate 117 H 120 H 122 H Pulse Rate [ From Monitor] Respiratory 25 H 28 H Rate Blood Pressure 113/66 113/66 122/77 O2 Sat by Pulse 94 94 94 Oximetry 07/07/20 07/07/20 07/07/20 05:45 06:00 06:16 Temperature Pulse Rate 119 H 119 H 118 H Pulse Rate [ From Monitor] Respiratory 28 H 29 H 29 H Rate Blood Pressure 125/76 135/85 121/87 O2 Sat by Pulse 93 92 92 Oximetry 07/07/20 07/07/20 07/07/20 06:30 06:46 07:00 Temperature Pulse Rate 122 H 129 H 118 H Pulse Rate [ From Monitor] Respiratory 30 H 36 H 37 H Rate Blood Pressure 134/98 135/85 135/85 O2 Sat by Pulse 91 94 87 Oximetry 07/07/20 07/07/20 07/07/20 07:16 07:30 07:46 Temperature Pulse Rate 126 H 138 H 139 H Pulse Rate [ From Monitor] Respiratory 39 H 35 H 37 H Rate Blood Pressure 131/95 131/95 176/95 O2 Sat by Pulse 87 79 L 75 L Oximetry 07/07/20 07/07/20 07/07/20 07:51 08:00 08:08 Temperature 99.6 F Pulse Rate 123 H 155 H 153 H Pulse Rate [ 153 H From Monitor] Respiratory 42 H 37 H Rate Blood Pressure 176/95 176/95 O2 Sat by Pulse 94 100 100 Oximetry 07/07/20 07/07/20 07/07/20 08:16 08:30 08:46 Temperature Pulse Rate 156 H 150 H 154 H Pulse Rate [ From Monitor] Respiratory 36 H 36 H 33 H Rate Blood Pressure 136/81 136/81 156/84 O2 Sat by Pulse 100 100 100 Oximetry 07/07/20 07/07/20 07/07/20 09:00 09:16 09:30 Temperature Pulse Rate 149 H 152 H 143 H Pulse Rate [ From Monitor] Respiratory 40 H 36 H 31 H Rate Blood Pressure 156/84 155/87 155/87 O2 Sat by Pulse 100 96 100 Oximetry 07/07/20 07/07/20 07/07/20 09:45 10:00 10:16 Temperature Pulse Rate 147 H 145 H 138 H Pulse Rate [ From Monitor] Respiratory 28 H 45 H 28 H Rate Blood Pressure 112/69 112/69 95/33 O2 Sat by Pulse 98 99 97 Oximetry 07/07/20 07/07/20 07/07/20 10:30 10:46 11:00 Temperature Pulse Rate 147 H 158 H 138 H Pulse Rate [ From Monitor] Respiratory 30 H 27 H 34 H Rate Blood Pressure 95/33 85/43 73/37 O2 Sat by Pulse 96 97 Oximetry 07/07/20 07/07/20 07/07/20 11:16 11:30 11:41 Temperature Pulse Rate 131 H 138 H 130 H Pulse Rate [ From Monitor] Respiratory 32 H 34 H Rate Blood Pressure 76/38 76/38 90/48 O2 Sat by Pulse 95 100 Oximetry 07/07/20 07/07/20 07/07/20 11:46 12:00 12:16 Temperature 97.8 F Pulse Rate 139 H 144 H 139 H Pulse Rate [ From Monitor] Respiratory 45 H 48 H 33 H Rate Blood Pressure 128/83 128/83 95/56 O2 Sat by Pulse 82 L 89 Oximetry 07/07/20 07/07/20 07/07/20 12:30 12:46 13:00 Temperature Pulse Rate 121 H 128 H 127 H Pulse Rate [ From Monitor] Respiratory 31 H 32 H 24 Rate Blood Pressure 84/46 137/78 137/78 O2 Sat by Pulse 99 Oximetry 07/07/20 07/07/20 07/07/20 13:15 13:30 13:45 Temperature Pulse Rate 116 H 110 H 105 H Pulse Rate [ From Monitor] Respiratory 27 H 20 30 H Rate Blood Pressure 75/39 92/44 87/42 O2 Sat by Pulse 94 97 98 Oximetry 07/07/20 07/07/20 07/07/20 14:00 14:15 14:30 Temperature Pulse Rate 98 H 95 H 93 H Pulse Rate [ From Monitor] Respiratory 30 H 30 H 30 H Rate Blood Pressure 75/49 78/50 76/45 O2 Sat by Pulse 98 98 98 Oximetry 07/07/20 07/07/20 14:45 15:00 Temperature Pulse Rate 91 H 91 H Pulse Rate [ From Monitor] Respiratory 30 H 30 H Rate Blood Pressure 75/48 87/54 O2 Sat by Pulse 97 97 Oximetry Constitutional: no acute distress, other (middle aged obese male with mildly increased respiratory effort at rest on MVS) Eyes: non-icteric ENT: oropharynx moist, other (ETT 24 cm CHILO) Neck: supple, no JVD Effort: mildly labored Ascultation: Bilateral: diminished breath sounds, rhonchi (scant), other (right chest tube) Percussion: Bilateral: not dull Cardiovascular: regular rate and rhythm, other (No R/M) Gastrointestinal: normoactive bowel sounds, soft, non-tender, other (distended and firm) Integumentary: normal Extremities: no cyanosis, no edema, pulses normal, no ischemia or petechiae Neurologic: pupils equal and round, other (sedated) Psychiatric: other (sedated) CBC and BMP: 07/16/20 05:19 07/16/20 05:19 ABG, PT/INR, D-dimer: ABG ABG pH 7.519 (7.320-7.450) H 07/05/20 05:25 POC ABG pCO2 47.1 mmHg (32.0-48.0) 07/05/20 05:25 ABG pCO2 69.8 mm Hg 06/22/20 03:50 POC ABG pO2 198.6 mmHg (83-108) H 07/05/20 05:25 ABG pO2 89.6 mm Hg (80.0-90.0) 06/22/20 03:50 POC ABG HCO3 37.5 07/05/20 05:25 ABG O2 Saturation 97.1 % (95.0-99.0) 06/22/20 03:50 PT/INR, D-dimer PT 11.8 Sec. (12.2-14.9) L 06/22/20 14:29 INR 0.88 (0.87-1.13) 06/22/20 14:29 D-Dimer 1887.82 ng/mlDDU (0-234) H 05/20/20 08:16 Abnormal lab findings: Abnormal Labs 05/09/20 05/09/20 05/09/20 12:59 12:59 12:59 WBC 11.8 H RBC Hgb Hct MCV 96 H MCH 34 H MCHC 35 H RDW Lymph % (Auto) 6.9 L Lymph # (Auto) 0.8 L [place] # (Auto) Baso # (Auto) Seg Neutrophils % 87.5 H Seg Neuts % (Manual) Lymphocytes % (Manual) Nucleated RBC % Seg Neutrophils # 10.3 H Seg Neutrophils # Man Lymphocytes # (Manual) Monocytes # (Manual) Eosinophils # (Manual) PT INR APTT D-Dimer Heparin Anti-Xa Level ABG pH POC ABG pCO2 POC ABG pO2 ABG pO2 ABG HCO3 ABG O2 Saturation ABG Base Excess ABG Hemoglobin ABG Oxyhemoglobin ABG Sodium ABG Potassium ABG Chloride ABG Glucose Oxyhemoglobin Carboxyhemoglobin Sodium 130 L Potassium 3.5 L Chloride 86.4 L Carbon Dioxide BUN 33 H Creatinine 2.3 H Glucose 156 H POC Glucose Lactic Acid Calcium Magnesium Ferritin Total Bilirubin 3.40 H Direct Bilirubin 1.7 H AST 385 H ALT 134 H Alkaline Phosphatase Lactate Dehydrogenase C-Reactive Protein Total Protein Albumin 3.0 L Triglycerides Lipase Arterial Blood Glucose Arterial Blood Ionized Calcium Urine WBC (Auto) Coronavirus (PCR) SARS-CoV-2 IgG Ab Crossmatch 05/09/20 05/09/20 05/09/20 12:59 12:59 12:59 WBC RBC Hgb Hct MCV MCH MCHC RDW Lymph % (Auto) Lymph # (Auto) [place] # (Auto) Baso # (Auto) Seg Neutrophils % Seg Neuts % (Manual) Lymphocytes % (Manual) Nucleated RBC % Seg Neutrophils # Seg Neutrophils # Man Lymphocytes # (Manual) Monocytes # (Manual) Eosinophils # (Manual) PT INR APTT D-Dimer 3242.51 H Heparin Anti-Xa Level ABG pH POC ABG pCO2 POC ABG pO2 ABG pO2 ABG HCO3 ABG O2 Saturation ABG Base Excess ABG Hemoglobin ABG Oxyhemoglobin ABG Sodium ABG Potassium ABG Chloride ABG Glucose Oxyhemoglobin Carboxyhemoglobin Sodium Potassium Chloride Carbon Dioxide BUN Creatinine Glucose 158 H POC Glucose Lactic Acid 3.50 H* Calcium Magnesium Ferritin Total Bilirubin Direct Bilirubin AST ALT Alkaline Phosphatase Lactate Dehydrogenase 2166 H C-Reactive Protein 39.00 H Total Protein Albumin Triglycerides Lipase Arterial Blood Glucose Arterial Blood Ionized Calcium Urine WBC (Auto) Coronavirus (PCR) SARS-CoV-2 IgG Ab Crossmatch 05/09/20 05/09/20 05/09/20 12:59 14:20 14:20 WBC RBC Hgb Hct MCV MCH MCHC RDW Lymph % (Auto) Lymph # (Auto) [place] # (Auto) Baso # (Auto) Seg Neutrophils % Seg Neuts % (Manual) Lymphocytes % (Manual) Nucleated RBC % Seg Neutrophils # Seg Neutrophils # Man Lymphocytes # (Manual) Monocytes # (Manual) Eosinophils # (Manual) PT INR APTT D-Dimer 2861.78 H Heparin Anti-Xa Level ABG pH POC ABG pCO2 POC ABG pO2 ABG pO2 ABG HCO3 ABG O2 Saturation ABG Base Excess ABG Hemoglobin ABG Oxyhemoglobin ABG Sodium ABG Potassium ABG Chloride ABG Glucose Oxyhemoglobin Carboxyhemoglobin Sodium Potassium Chloride Carbon Dioxide BUN Creatinine Glucose POC Glucose Lactic Acid 2.20 H* Calcium Magnesium Ferritin 26997.0 H Total Bilirubin Direct Bilirubin AST ALT Alkaline Phosphatase Lactate Dehydrogenase C-Reactive Protein Total Protein Albumin Triglycerides Lipase Arterial Blood Glucose Arterial Blood Ionized Calcium Urine WBC (Auto) Coronavirus (PCR) SARS-CoV-2 IgG Ab Crossmatch 05/09/20 05/09/20 05/09/20 14:20 14:20 15:56 WBC RBC Hgb Hct MCV MCH MCHC RDW Lymph % (Auto) Lymph # (Auto) [place] # (Auto) Baso # (Auto) Seg Neutrophils % Seg Neuts % (Manual) Lymphocytes % (Manual) Nucleated RBC % Seg Neutrophils # Seg Neutrophils # Man Lymphocytes # (Manual) Monocytes # (Manual) Eosinophils # (Manual) PT INR APTT D-Dimer Heparin Anti-Xa Level ABG pH POC ABG pCO2 POC ABG pO2 57.3 L ABG pO2 ABG HCO3 ABG O2 Saturation ABG Base Excess ABG Hemoglobin ABG Oxyhemoglobin 86.3 L ABG Sodium 129.9 L ABG Potassium ABG Chloride ABG Glucose 146 H Oxyhemoglobin Carboxyhemoglobin Sodium Potassium Chloride Carbon Dioxide BUN Creatinine Glucose 143 H POC Glucose Lactic Acid Calcium Magnesium Ferritin 37687.0 H Total Bilirubin Direct Bilirubin AST ALT Alkaline Phosphatase Lactate Dehydrogenase 1953 H C-Reactive Protein 33.50 H Total Protein Albumin Triglycerides Lipase Arterial Blood Glucose 146 H Arterial Blood Ionized Calcium 3.9 L Urine WBC (Auto) Coronavirus (PCR) SARS-CoV-2 IgG Ab Crossmatch 05/10/20 05/10/20 05/10/20 10:32 10:32 18:50 WBC 15.4 H RBC Hgb Hct MCV 97 H MCH 33 H MCHC RDW 13.1 L Lymph % (Auto) Lymph # (Auto) [place] # (Auto) Baso # (Auto) Seg Neutrophils % Seg Neuts % (Manual) 89.0 H Lymphocytes % (Manual) 8.0 L Nucleated RBC % Seg Neutrophils # Seg Neutrophils # Man 13.7 H Lymphocytes # (Manual) Monocytes # (Manual) Eosinophils # (Manual) PT INR APTT D-Dimer Heparin Anti-Xa Level ABG pH POC ABG pCO2 POC ABG pO2 ABG pO2 ABG HCO3 ABG O2 Saturation ABG Base Excess ABG Hemoglobin ABG Oxyhemoglobin ABG Sodium ABG Potassium ABG Chloride ABG Glucose Oxyhemoglobin Carboxyhemoglobin Sodium 136 L Potassium Chloride 97.4 L Carbon Dioxide BUN 37 H Creatinine 1.7 H Glucose 209 H POC Glucose Lactic Acid Calcium Magnesium Ferritin > 2000.0 H Total Bilirubin Direct Bilirubin AST ALT Alkaline Phosphatase Lactate Dehydrogenase C-Reactive Protein Total Protein Albumin Triglycerides Lipase Arterial Blood Glucose Arterial Blood Ionized Calcium Urine WBC (Auto) Coronavirus (PCR) SARS-CoV-2 IgG Ab Crossmatch 05/10/20 05/10/20 05/10/20 18:50 19:00 Unknown WBC RBC Hgb Hct MCV MCH MCHC RDW Lymph % (Auto) Lymph # (Auto) [place] # (Auto) Baso # (Auto) Seg Neutrophils % Seg Neuts % (Manual) Lymphocytes % (Manual) Nucleated RBC % Seg Neutrophils # Seg Neutrophils # Man Lymphocytes # (Manual) Monocytes # (Manual) Eosinophils # (Manual) PT INR APTT D-Dimer > 25432 H Heparin Anti-Xa Level ABG pH POC ABG pCO2 POC ABG pO2 ABG pO2 ABG HCO3 ABG O2 Saturation ABG Base Excess ABG Hemoglobin ABG Oxyhemoglobin ABG Sodium ABG Potassium ABG Chloride ABG Glucose Oxyhemoglobin Carboxyhemoglobin Sodium Potassium Chloride Carbon Dioxide BUN Creatinine Glucose POC Glucose Lactic Acid Calcium Magnesium Ferritin Total Bilirubin Direct Bilirubin AST ALT Alkaline Phosphatase Lactate Dehydrogenase 1879 H C-Reactive Protein 24.80 H Total Protein Albumin Triglycerides Lipase Arterial Blood Glucose Arterial Blood Ionized Calcium Urine WBC (Auto) 11.0 H Coronavirus (PCR) SARS-CoV-2 IgG Ab Crossmatch 05/10/20 05/11/20 05/11/20 Unknown 07:30 07:30 WBC RBC Hgb Hct MCV MCH MCHC RDW Lymph % (Auto) Lymph # (Auto) [place] # (Auto) Baso # (Auto) Seg Neutrophils % Seg Neuts % (Manual) Lymphocytes % (Manual) Nucleated RBC % Seg Neutrophils # Seg Neutrophils # Man Lymphocytes # (Manual) Monocytes # (Manual) Eosinophils # (Manual) PT INR APTT D-Dimer > 2000 H Heparin Anti-Xa Level ABG pH POC ABG pCO2 POC ABG pO2 ABG pO2 ABG HCO3 ABG O2 Saturation ABG Base Excess ABG Hemoglobin ABG Oxyhemoglobin ABG Sodium ABG Potassium ABG Chloride ABG Glucose Oxyhemoglobin Carboxyhemoglobin Sodium Potassium Chloride 96.3 L Carbon Dioxide BUN 36 H Creatinine Glucose 161 H POC Glucose Lactic Acid Calcium 8.3 L Magnesium Ferritin Total Bilirubin 1.50 H Direct Bilirubin 0.6 H AST 178 H ALT 111 H Alkaline Phosphatase Lactate Dehydrogenase C-Reactive Protein Total Protein Albumin 3.0 L Triglycerides Lipase Arterial Blood Glucose Arterial Blood Ionized Calcium Urine WBC (Auto) Coronavirus (PCR) Positive A SARS-CoV-2 IgG Ab Crossmatch 05/11/20 05/11/20 05/11/20 07:30 07:30 07:30 WBC RBC Hgb Hct MCV MCH MCHC RDW Lymph % (Auto) Lymph # (Auto) [place] # (Auto) Baso # (Auto) Seg Neutrophils % Seg Neuts % (Manual) Lymphocytes % (Manual) Nucleated RBC % Seg Neutrophils # Seg Neutrophils # Man Lymphocytes # (Manual) Monocytes # (Manual) Eosinophils # (Manual) PT INR APTT D-Dimer Heparin Anti-Xa Level ABG pH POC ABG pCO2 POC ABG pO2 ABG pO2 ABG HCO3 ABG O2 Saturation ABG Base Excess ABG Hemoglobin ABG Oxyhemoglobin ABG Sodium ABG Potassium ABG Chloride ABG Glucose Oxyhemoglobin Carboxyhemoglobin Sodium Potassium Chloride Carbon Dioxide BUN Creatinine Glucose POC Glucose Lactic Acid Calcium Magnesium Ferritin 52880.0 H Total Bilirubin Direct Bilirubin AST ALT Alkaline Phosphatase Lactate Dehydrogenase 1523 H C-Reactive Protein 12.90 H Total Protein Albumin Triglycerides Lipase Arterial Blood Glucose Arterial Blood Ionized Calcium Urine WBC (Auto) Coronavirus (PCR) SARS-CoV-2 IgG Ab Reactive A Crossmatch 05/13/20 05/13/20 05/15/20 05:20 05:20 08:15 WBC RBC Hgb Hct MCV MCH MCHC RDW Lymph % (Auto) Lymph # (Auto) [place] # (Auto) Baso # (Auto) Seg Neutrophils % Seg Neuts % (Manual) Lymphocytes % (Manual) Nucleated RBC % Seg Neutrophils # Seg Neutrophils # Man Lymphocytes # (Manual) Monocytes # (Manual) Eosinophils # (Manual) PT INR APTT D-Dimer > 28724 H 5318.28 H Heparin Anti-Xa Level ABG pH POC ABG pCO2 POC ABG pO2 ABG pO2 ABG HCO3 ABG O2 Saturation ABG Base Excess ABG Hemoglobin ABG Oxyhemoglobin ABG Sodium ABG Potassium ABG Chloride ABG Glucose Oxyhemoglobin Carboxyhemoglobin Sodium Potassium Chloride Carbon Dioxide 32 H BUN 30 H Creatinine Glucose 156 H POC Glucose Lactic Acid Calcium Magnesium 2.60 H Ferritin Total Bilirubin 1.40 H Direct Bilirubin AST 121 H ALT 119 H Alkaline Phosphatase Lactate Dehydrogenase 957 H C-Reactive Protein 4.00 H Total Protein Albumin 3.0 L Triglycerides Lipase Arterial Blood Glucose Arterial Blood Ionized Calcium Urine WBC (Auto) Coronavirus (PCR) SARS-CoV-2 IgG Ab Crossmatch 05/15/20 05/15/20 05/15/20 08:15 08:15 08:15 WBC 12.4 H RBC Hgb Hct MCV 98 H MCH 33 H MCHC RDW Lymph % (Auto) 9.7 L Lymph # (Auto) [place] # (Auto) Baso # (Auto) Seg Neutrophils % 86.8 H Seg Neuts % (Manual) Lymphocytes % (Manual) Nucleated RBC % Seg Neutrophils # 10.8 H Seg Neutrophils # Man Lymphocytes # (Manual) Monocytes # (Manual) Eosinophils # (Manual) PT INR APTT D-Dimer Heparin Anti-Xa Level ABG pH POC ABG pCO2 POC ABG pO2 ABG pO2 ABG HCO3 ABG O2 Saturation ABG Base Excess ABG Hemoglobin ABG Oxyhemoglobin ABG Sodium ABG Potassium ABG Chloride ABG Glucose Oxyhemoglobin Carboxyhemoglobin Sodium Potassium Chloride 94.8 L Carbon Dioxide 32 H BUN 22 H Creatinine Glucose 115 H POC Glucose Lactic Acid Calcium 8.3 L Magnesium Ferritin 2494.0 H Total Bilirubin Direct Bilirubin AST 73 H ALT 121 H Alkaline Phosphatase Lactate Dehydrogenase 835 H C-Reactive Protein 3.40 H Total Protein 6.1 L Albumin 3.0 L Triglycerides Lipase Arterial Blood Glucose Arterial Blood Ionized Calcium Urine WBC (Auto) Coronavirus (PCR) SARS-CoV-2 IgG Ab Crossmatch 05/17/20 05/17/20 05/17/20 05:50 05:50 05:50 WBC RBC Hgb Hct MCV MCH MCHC RDW Lymph % (Auto) Lymph # (Auto) [place] # (Auto) Baso # (Auto) Seg Neutrophils % Seg Neuts % (Manual) Lymphocytes % (Manual) Nucleated RBC % Seg Neutrophils # Seg Neutrophils # Man Lymphocytes # (Manual) Monocytes # (Manual) Eosinophils # (Manual) PT INR APTT D-Dimer 2911.42 H Heparin Anti-Xa Level ABG pH POC ABG pCO2 POC ABG pO2 ABG pO2 ABG HCO3 ABG O2 Saturation ABG Base Excess ABG Hemoglobin ABG Oxyhemoglobin ABG Sodium ABG Potassium ABG Chloride ABG Glucose Oxyhemoglobin Carboxyhemoglobin Sodium 136 L Potassium Chloride 96.0 L Carbon Dioxide 34 H BUN 22 H Creatinine Glucose 140 H POC Glucose Lactic Acid Calcium Magnesium Ferritin 2082.0 H Total Bilirubin Direct Bilirubin AST ALT 75 H Alkaline Phosphatase Lactate Dehydrogenase 601 H C-Reactive Protein 2.70 H Total Protein Albumin 2.9 L Triglycerides Lipase Arterial Blood Glucose Arterial Blood Ionized Calcium Urine WBC (Auto) Coronavirus (PCR) SARS-CoV-2 IgG Ab Crossmatch 05/17/20 05/18/20 05/20/20 05:50 12:22 08:16 WBC RBC Hgb Hct MCV 98 H MCH 33 H MCHC RDW Lymph % (Auto) 8.0 L Lymph # (Auto) 0.8 L [place] # (Auto) Baso # (Auto) Seg Neutrophils % 89.3 H Seg Neuts % (Manual) Lymphocytes % (Manual) Nucleated RBC % Seg Neutrophils # 8.8 H Seg Neutrophils # Man Lymphocytes # (Manual) Monocytes # (Manual) Eosinophils # (Manual) PT INR APTT D-Dimer 1887.82 H Heparin Anti-Xa Level ABG pH POC ABG pCO2 POC ABG pO2 ABG pO2 ABG HCO3 ABG O2 Saturation ABG Base Excess ABG Hemoglobin ABG Oxyhemoglobin ABG Sodium ABG Potassium ABG Chloride ABG Glucose Oxyhemoglobin Carboxyhemoglobin Sodium Potassium Chloride Carbon Dioxide BUN Creatinine Glucose POC Glucose 178 H Lactic Acid Calcium Magnesium Ferritin Total Bilirubin Direct Bilirubin AST ALT Alkaline Phosphatase Lactate Dehydrogenase C-Reactive Protein Total Protein Albumin Triglycerides Lipase Arterial Blood Glucose Arterial Blood Ionized Calcium Urine WBC (Auto) Coronavirus (PCR) SARS-CoV-2 IgG Ab Crossmatch 05/20/20 05/20/20 05/21/20 08:16 08:16 21:10 WBC RBC Hgb Hct MCV MCH MCHC RDW Lymph % (Auto) Lymph # (Auto) [place] # (Auto) Baso # (Auto) Seg Neutrophils % Seg Neuts % (Manual) Lymphocytes % (Manual) Nucleated RBC % Seg Neutrophils # Seg Neutrophils # Man Lymphocytes # (Manual) Monocytes # (Manual) Eosinophils # (Manual) PT INR APTT D-Dimer Heparin Anti-Xa Level ABG pH 7.483 H POC ABG pCO2 POC ABG pO2 ABG pO2 50.0 L ABG HCO3 27.0 H ABG O2 Saturation 86.2 L ABG Base Excess 3.7 H ABG Hemoglobin ABG Oxyhemoglobin ABG Sodium ABG Potassium ABG Chloride ABG Glucose Oxyhemoglobin 84.2 L Carboxyhemoglobin Sodium Potassium Chloride Carbon Dioxide BUN Creatinine Glucose POC Glucose Lactic Acid Calcium Magnesium Ferritin 1960.0 H Total Bilirubin Direct Bilirubin AST ALT Alkaline Phosphatase Lactate Dehydrogenase 705 H C-Reactive Protein 3.10 H Total Protein Albumin Triglycerides Lipase Arterial Blood Glucose Arterial Blood Ionized Calcium Urine WBC (Auto) Coronavirus (PCR) SARS-CoV-2 IgG Ab Crossmatch 05/22/20 05/22/20 05/22/20 04:01 07:53 07:53 WBC 19.2 H RBC Hgb Hct MCV 98 H MCH 34 H MCHC RDW Lymph % (Auto) Lymph # (Auto) [place] # (Auto) Baso # (Auto) Seg Neutrophils % Seg Neuts % (Manual) 96.0 H Lymphocytes % (Manual) 1.0 L Nucleated RBC % Seg Neutrophils # Seg Neutrophils # Man 18.4 H Lymphocytes # (Manual) 0.2 L Monocytes # (Manual) Eosinophils # (Manual) PT INR APTT D-Dimer Heparin Anti-Xa Level ABG pH POC ABG pCO2 53.8 H POC ABG pO2 125.5 H ABG pO2 ABG HCO3 ABG O2 Saturation ABG Base Excess ABG Hemoglobin ABG Oxyhemoglobin ABG Sodium 131.8 L ABG Potassium 4.8 H ABG Chloride 94.0 L ABG Glucose 163 H Oxyhemoglobin Carboxyhemoglobin Sodium 131 L Potassium Chloride 93.4 L Carbon Dioxide BUN 40 H Creatinine Glucose 176 H POC Glucose Lactic Acid Calcium Magnesium 2.70 H Ferritin Total Bilirubin 1.80 H Direct Bilirubin AST 45 H ALT 116 H Alkaline Phosphatase 181 H Lactate Dehydrogenase C-Reactive Protein Total Protein Albumin 2.6 L Triglycerides Lipase Arterial Blood Glucose 163 H Arterial Blood Ionized Calcium 4.5 L Urine WBC (Auto) Coronavirus (PCR) SARS-CoV-2 IgG Ab Crossmatch 05/23/20 05/24/20 05/24/20 04:17 03:07 04:08 WBC RBC Hgb Hct MCV MCH MCHC RDW Lymph % (Auto) Lymph # (Auto) [place] # (Auto) Baso # (Auto) Seg Neutrophils % Seg Neuts % (Manual) Lymphocytes % (Manual) Nucleated RBC % Seg Neutrophils # Seg Neutrophils # Man Lymphocytes # (Manual) Monocytes # (Manual) Eosinophils # (Manual) PT INR APTT D-Dimer Heparin Anti-Xa Level ABG pH 7.328 L POC ABG pCO2 POC ABG pO2 ABG pO2 72.8 L 73.4 L ABG HCO3 31.0 H 34.0 H ABG O2 Saturation 93.5 L ABG Base Excess 3.5 H 7.7 H ABG Hemoglobin 13.3 L 12.1 L ABG Oxyhemoglobin ABG Sodium ABG Potassium ABG Chloride ABG Glucose Oxyhemoglobin 91.5 L 94.3 L Carboxyhemoglobin Sodium Potassium Chloride Carbon Dioxide BUN Creatinine Glucose POC Glucose 155 H Lactic Acid Calcium Magnesium Ferritin Total Bilirubin Direct Bilirubin AST ALT Alkaline Phosphatase Lactate Dehydrogenase C-Reactive Protein Total Protein Albumin Triglycerides Lipase Arterial Blood Glucose Arterial Blood Ionized Calcium Urine WBC (Auto) Coronavirus (PCR) SARS-CoV-2 IgG Ab Crossmatch 05/24/20 05/24/20 05/24/20 09:33 12:21 17:52 WBC RBC Hgb Hct MCV MCH MCHC RDW Lymph % (Auto) Lymph # (Auto) [place] # (Auto) Baso # (Auto) Seg Neutrophils % Seg Neuts % (Manual) Lymphocytes % (Manual) Nucleated RBC % Seg Neutrophils # Seg Neutrophils # Man Lymphocytes # (Manual) Monocytes # (Manual) Eosinophils # (Manual) PT INR APTT D-Dimer Heparin Anti-Xa Level ABG pH POC ABG pCO2 POC ABG pO2 ABG pO2 ABG HCO3 ABG O2 Saturation ABG Base Excess ABG Hemoglobin ABG Oxyhemoglobin ABG Sodium ABG Potassium ABG Chloride ABG Glucose Oxyhemoglobin Carboxyhemoglobin Sodium Potassium Chloride Carbon Dioxide 34 H D BUN 28 H Creatinine 0.7 L Glucose 168 H POC Glucose 173 H 164 H Lactic Acid Calcium Magnesium Ferritin Total Bilirubin Direct Bilirubin AST ALT Alkaline Phosphatase Lactate Dehydrogenase C-Reactive Protein Total Protein Albumin Triglycerides Lipase Arterial Blood Glucose Arterial Blood Ionized Calcium Urine WBC (Auto) Coronavirus (PCR) SARS-CoV-2 IgG Ab Crossmatch 05/24/20 05/25/20 05/25/20 23:47 04:29 05:46 WBC RBC Hgb Hct MCV MCH MCHC RDW Lymph % (Auto) Lymph # (Auto) [place] # (Auto) Baso # (Auto) Seg Neutrophils % Seg Neuts % (Manual) Lymphocytes % (Manual) Nucleated RBC % Seg Neutrophils # Seg Neutrophils # Man Lymphocytes # (Manual) Monocytes # (Manual) Eosinophils # (Manual) PT INR APTT D-Dimer Heparin Anti-Xa Level ABG pH POC ABG pCO2 68.6 H POC ABG pO2 ABG pO2 ABG HCO3 ABG O2 Saturation ABG Base Excess ABG Hemoglobin ABG Oxyhemoglobin ABG Sodium ABG Potassium 4.7 H ABG Chloride ABG Glucose 226 H Oxyhemoglobin Carboxyhemoglobin Sodium Potassium Chloride Carbon Dioxide BUN Creatinine Glucose POC Glucose 171 H 201 H Lactic Acid Calcium Magnesium Ferritin Total Bilirubin Direct Bilirubin AST ALT Alkaline Phosphatase Lactate Dehydrogenase C-Reactive Protein Total Protein Albumin Triglycerides Lipase Arterial Blood Glucose 226 H Arterial Blood Ionized Calcium Urine WBC (Auto) Coronavirus (PCR) SARS-CoV-2 IgG Ab Crossmatch 05/25/20 05/25/20 05/25/20 08:37 08:37 12:38 WBC 12.0 H RBC 3.64 L Hgb Hct MCV 99 H MCH 33 H MCHC RDW Lymph % (Auto) Lymph # (Auto) [place] # (Auto) Baso # (Auto) Seg Neutrophils % Seg Neuts % (Manual) Lymphocytes % (Manual) Nucleated RBC % Seg Neutrophils # Seg Neutrophils # Man Lymphocytes # (Manual) Monocytes # (Manual) Eosinophils # (Manual) PT INR APTT D-Dimer Heparin Anti-Xa Level ABG pH POC ABG pCO2 POC ABG pO2 ABG pO2 ABG HCO3 ABG O2 Saturation ABG Base Excess ABG Hemoglobin ABG Oxyhemoglobin ABG Sodium ABG Potassium ABG Chloride ABG Glucose Oxyhemoglobin Carboxyhemoglobin Sodium Potassium Chloride 97.3 L Carbon Dioxide 35 H BUN 25 H Creatinine 0.7 L Glucose 191 H POC Glucose 182 H Lactic Acid Calcium Magnesium Ferritin Total Bilirubin Direct Bilirubin AST ALT Alkaline Phosphatase Lactate Dehydrogenase C-Reactive Protein Total Protein Albumin Triglycerides Lipase Arterial Blood Glucose Arterial Blood Ionized Calcium Urine WBC (Auto) Coronavirus (PCR) SARS-CoV-2 IgG Ab Crossmatch 05/25/20 05/26/20 05/26/20 18:16 00:06 04:50 WBC RBC Hgb Hct MCV MCH MCHC RDW Lymph % (Auto) Lymph # (Auto) [place] # (Auto) Baso # (Auto) Seg Neutrophils % Seg Neuts % (Manual) Lymphocytes % (Manual) Nucleated RBC % Seg Neutrophils # Seg Neutrophils # Man Lymphocytes # (Manual) Monocytes # (Manual) Eosinophils # (Manual) PT INR APTT D-Dimer Heparin Anti-Xa Level ABG pH POC ABG pCO2 POC ABG pO2 ABG pO2 221.5 H ABG HCO3 40.4 H ABG O2 Saturation 99.3 H ABG Base Excess 12.8 H ABG Hemoglobin 10.4 L ABG Oxyhemoglobin ABG Sodium ABG Potassium ABG Chloride ABG Glucose Oxyhemoglobin Carboxyhemoglobin Sodium Potassium Chloride Carbon Dioxide BUN Creatinine Glucose POC Glucose 176 H 152 H Lactic Acid Calcium Magnesium Ferritin Total Bilirubin Direct Bilirubin AST ALT Alkaline Phosphatase Lactate Dehydrogenase C-Reactive Protein Total Protein Albumin Triglycerides Lipase Arterial Blood Glucose Arterial Blood Ionized Calcium Urine WBC (Auto) Coronavirus (PCR) SARS-CoV-2 IgG Ab Crossmatch 05/26/20 05/26/20 05/26/20 06:11 07:51 07:51 WBC 13.4 H RBC 3.64 L Hgb Hct MCV 98 H MCH 33 H MCHC RDW Lymph % (Auto) Lymph # (Auto) [place] # (Auto) Baso # (Auto) Seg Neutrophils % Seg Neuts % (Manual) Lymphocytes % (Manual) Nucleated RBC % Seg Neutrophils # Seg Neutrophils # Man Lymphocytes # (Manual) Monocytes # (Manual) Eosinophils # (Manual) PT INR APTT D-Dimer Heparin Anti-Xa Level ABG pH POC ABG pCO2 POC ABG pO2 ABG pO2 ABG HCO3 ABG O2 Saturation ABG Base Excess ABG Hemoglobin ABG Oxyhemoglobin ABG Sodium ABG Potassium ABG Chloride ABG Glucose Oxyhemoglobin Carboxyhemoglobin Sodium Potassium Chloride 96.6 L Carbon Dioxide 39 H BUN 29 H Creatinine 0.7 L Glucose 174 H POC Glucose 165 H Lactic Acid Calcium Magnesium Ferritin Total Bilirubin Direct Bilirubin AST ALT Alkaline Phosphatase Lactate Dehydrogenase C-Reactive Protein Total Protein Albumin Triglycerides Lipase Arterial Blood Glucose Arterial Blood Ionized Calcium Urine WBC (Auto) Coronavirus (PCR) SARS-CoV-2 IgG Ab Crossmatch 05/26/20 05/27/20 05/27/20 23:23 03:43 05:29 WBC RBC Hgb Hct MCV MCH MCHC RDW Lymph % (Auto) Lymph # (Auto) [place] # (Auto) Baso # (Auto) Seg Neutrophils % Seg Neuts % (Manual) Lymphocytes % (Manual) Nucleated RBC % Seg Neutrophils # Seg Neutrophils # Man Lymphocytes # (Manual) Monocytes # (Manual) Eosinophils # (Manual) PT INR APTT D-Dimer Heparin Anti-Xa Level ABG pH 7.480 H POC ABG pCO2 52.4 H POC ABG pO2 61.4 L ABG pO2 ABG HCO3 ABG O2 Saturation ABG Base Excess ABG Hemoglobin ABG Oxyhemoglobin ABG Sodium 134.9 L ABG Potassium ABG Chloride 95.0 L ABG Glucose 221 H Oxyhemoglobin Carboxyhemoglobin Sodium Potassium Chloride Carbon Dioxide BUN Creatinine Glucose POC Glucose 169 H 227 H Lactic Acid Calcium Magnesium Ferritin Total Bilirubin Direct Bilirubin AST ALT Alkaline Phosphatase Lactate Dehydrogenase C-Reactive Protein Total Protein Albumin Triglycerides Lipase Arterial Blood Glucose 221 H Arterial Blood Ionized Calcium 4.5 L Urine WBC (Auto) Coronavirus (PCR) SARS-CoV-2 IgG Ab Crossmatch 05/27/20 05/27/20 05/27/20 07:19 12:18 13:50 WBC RBC Hgb Hct MCV MCH MCHC RDW Lymph % (Auto) Lymph # (Auto) [place] # (Auto) Baso # (Auto) Seg Neutrophils % Seg Neuts % (Manual) Lymphocytes % (Manual) Nucleated RBC % Seg Neutrophils # Seg Neutrophils # Man Lymphocytes # (Manual) Monocytes # (Manual) Eosinophils # (Manual) PT INR APTT D-Dimer Heparin Anti-Xa Level ABG pH POC ABG pCO2 POC ABG pO2 ABG pO2 ABG HCO3 ABG O2 Saturation ABG Base Excess ABG Hemoglobin ABG Oxyhemoglobin ABG Sodium ABG Potassium ABG Chloride ABG Glucose Oxyhemoglobin Carboxyhemoglobin Sodium Potassium Chloride Carbon Dioxide BUN Creatinine Glucose POC Glucose 114 H 148 H Lactic Acid Calcium Magnesium Ferritin Total Bilirubin Direct Bilirubin AST ALT Alkaline Phosphatase Lactate Dehydrogenase C-Reactive Protein Total Protein Albumin Triglycerides 247 H Lipase Arterial Blood Glucose Arterial Blood Ionized Calcium Urine WBC (Auto) Coronavirus (PCR) SARS-CoV-2 IgG Ab Crossmatch 05/28/20 05/28/20 05/28/20 00:13 04:16 05:22 WBC RBC Hgb Hct MCV MCH MCHC RDW Lymph % (Auto) Lymph # (Auto) [place] # (Auto) Baso # (Auto) Seg Neutrophils % Seg Neuts % (Manual) Lymphocytes % (Manual) Nucleated RBC % Seg Neutrophils # Seg Neutrophils # Man Lymphocytes # (Manual) Monocytes # (Manual) Eosinophils # (Manual) PT INR APTT D-Dimer Heparin Anti-Xa Level ABG pH POC ABG pCO2 64.4 H POC ABG pO2 60.5 L ABG pO2 ABG HCO3 ABG O2 Saturation ABG Base Excess ABG Hemoglobin ABG Oxyhemoglobin ABG Sodium ABG Potassium ABG Chloride 95.0 L ABG Glucose 209 H Oxyhemoglobin Carboxyhemoglobin Sodium Potassium Chloride Carbon Dioxide BUN Creatinine Glucose POC Glucose 155 H 186 H Lactic Acid Calcium Magnesium Ferritin Total Bilirubin Direct Bilirubin AST ALT Alkaline Phosphatase Lactate Dehydrogenase C-Reactive Protein Total Protein Albumin Triglycerides Lipase Arterial Blood Glucose 209 H Arterial Blood Ionized Calcium Urine WBC (Auto) Coronavirus (PCR) SARS-CoV-2 IgG Ab Crossmatch 05/28/20 05/28/20 05/29/20 12:45 17:39 00:37 WBC RBC Hgb Hct MCV MCH MCHC RDW Lymph % (Auto) Lymph # (Auto) [place] # (Auto) Baso # (Auto) Seg Neutrophils % Seg Neuts % (Manual) Lymphocytes % (Manual) Nucleated RBC % Seg Neutrophils # Seg Neutrophils # Man Lymphocytes # (Manual) Monocytes # (Manual) Eosinophils # (Manual) PT INR APTT D-Dimer Heparin Anti-Xa Level ABG pH POC ABG pCO2 POC ABG pO2 ABG pO2 ABG HCO3 ABG O2 Saturation ABG Base Excess ABG Hemoglobin ABG Oxyhemoglobin ABG Sodium ABG Potassium ABG Chloride ABG Glucose Oxyhemoglobin Carboxyhemoglobin Sodium Potassium Chloride Carbon Dioxide BUN Creatinine Glucose POC Glucose 143 H 164 H 221 H Lactic Acid Calcium Magnesium Ferritin Total Bilirubin Direct Bilirubin AST ALT Alkaline Phosphatase Lactate Dehydrogenase C-Reactive Protein Total Protein Albumin Triglycerides Lipase Arterial Blood Glucose Arterial Blood Ionized Calcium Urine WBC (Auto) Coronavirus (PCR) SARS-CoV-2 IgG Ab Crossmatch 05/29/20 05/29/20 05/29/20 04:15 05:33 12:34 WBC RBC Hgb Hct MCV MCH MCHC RDW Lymph % (Auto) Lymph # (Auto) [place] # (Auto) Baso # (Auto) Seg Neutrophils % Seg Neuts % (Manual) Lymphocytes % (Manual) Nucleated RBC % Seg Neutrophils # Seg Neutrophils # Man Lymphocytes # (Manual) Monocytes # (Manual) Eosinophils # (Manual) PT INR APTT D-Dimer Heparin Anti-Xa Level ABG pH 7.463 H POC ABG pCO2 56.3 H POC ABG pO2 81.2 L ABG pO2 ABG HCO3 ABG O2 Saturation ABG Base Excess ABG Hemoglobin ABG Oxyhemoglobin ABG Sodium ABG Potassium ABG Chloride 96.0 L ABG Glucose 194 H Oxyhemoglobin Carboxyhemoglobin Sodium Potassium Chloride Carbon Dioxide BUN Creatinine Glucose POC Glucose 133 H 221 H Lactic Acid Calcium Magnesium Ferritin Total Bilirubin Direct Bilirubin AST ALT Alkaline Phosphatase Lactate Dehydrogenase C-Reactive Protein Total Protein Albumin Triglycerides Lipase Arterial Blood Glucose 194 H Arterial Blood Ionized Calcium 4.5 L Urine WBC (Auto) Coronavirus (PCR) SARS-CoV-2 IgG Ab Crossmatch 05/29/20 05/30/20 05/30/20 18:07 00:12 05:38 WBC RBC Hgb Hct MCV MCH MCHC RDW Lymph % (Auto) Lymph # (Auto) [place] # (Auto) Baso # (Auto) Seg Neutrophils % Seg Neuts % (Manual) Lymphocytes % (Manual) Nucleated RBC % Seg Neutrophils # Seg Neutrophils # Man Lymphocytes # (Manual) Monocytes # (Manual) Eosinophils # (Manual) PT INR APTT D-Dimer Heparin Anti-Xa Level ABG pH POC ABG pCO2 POC ABG pO2 ABG pO2 ABG HCO3 ABG O2 Saturation ABG Base Excess ABG Hemoglobin ABG Oxyhemoglobin ABG Sodium ABG Potassium ABG Chloride ABG Glucose Oxyhemoglobin Carboxyhemoglobin Sodium Potassium Chloride Carbon Dioxide BUN Creatinine Glucose POC Glucose 162 H 190 H 208 H Lactic Acid Calcium Magnesium Ferritin Total Bilirubin Direct Bilirubin AST ALT Alkaline Phosphatase Lactate Dehydrogenase C-Reactive Protein Total Protein Albumin Triglycerides Lipase Arterial Blood Glucose Arterial Blood Ionized Calcium Urine WBC (Auto) Coronavirus (PCR) SARS-CoV-2 IgG Ab Crossmatch 05/30/20 05/30/20 05/30/20 09:30 11:35 11:54 WBC 12.4 H RBC 3.48 L Hgb 11.3 L Hct 34.6 L MCV 99 H MCH 33 H MCHC RDW Lymph % (Auto) Lymph # (Auto) [place] # (Auto) Baso # (Auto) Seg Neutrophils % Seg Neuts % (Manual) Lymphocytes % (Manual) Nucleated RBC % Seg Neutrophils # Seg Neutrophils # Man Lymphocytes # (Manual) Monocytes # (Manual) Eosinophils # (Manual) PT INR APTT D-Dimer Heparin Anti-Xa Level ABG pH 7.455 H POC ABG pCO2 57.5 H POC ABG pO2 81.5 L ABG pO2 ABG HCO3 ABG O2 Saturation ABG Base Excess ABG Hemoglobin ABG Oxyhemoglobin ABG Sodium ABG Potassium ABG Chloride 96.0 L ABG Glucose 204 H Oxyhemoglobin Carboxyhemoglobin Sodium Potassium Chloride Carbon Dioxide BUN Creatinine Glucose POC Glucose 183 H Lactic Acid Calcium Magnesium Ferritin Total Bilirubin Direct Bilirubin AST ALT Alkaline Phosphatase Lactate Dehydrogenase C-Reactive Protein Total Protein Albumin Triglycerides Lipase Arterial Blood Glucose 204 H Arterial Blood Ionized Calcium Urine WBC (Auto) Coronavirus (PCR) SARS-CoV-2 IgG Ab Crossmatch 05/30/20 05/31/20 05/31/20 18:01 00:10 03:22 WBC RBC Hgb Hct MCV MCH MCHC RDW Lymph % (Auto) Lymph # (Auto) [place] # (Auto) Baso # (Auto) Seg Neutrophils % Seg Neuts % (Manual) Lymphocytes % (Manual) Nucleated RBC % Seg Neutrophils # Seg Neutrophils # Man Lymphocytes # (Manual) Monocytes # (Manual) Eosinophils # (Manual) PT INR APTT D-Dimer Heparin Anti-Xa Level ABG pH POC ABG pCO2 60.4 H POC ABG pO2 71.5 L ABG pO2 ABG HCO3 ABG O2 Saturation ABG Base Excess ABG Hemoglobin ABG Oxyhemoglobin ABG Sodium ABG Potassium ABG Chloride 96.0 L ABG Glucose 169 H Oxyhemoglobin Carboxyhemoglobin Sodium Potassium Chloride Carbon Dioxide BUN Creatinine Glucose POC Glucose 184 H 135 H Lactic Acid Calcium Magnesium Ferritin Total Bilirubin Direct Bilirubin AST ALT Alkaline Phosphatase Lactate Dehydrogenase C-Reactive Protein Total Protein Albumin Triglycerides Lipase Arterial Blood Glucose 169 H Arterial Blood Ionized Calcium 4.5 L Urine WBC (Auto) Coronavirus (PCR) SARS-CoV-2 IgG Ab Crossmatch 05/31/20 05/31/20 05/31/20 05:24 11:18 14:41 WBC RBC Hgb Hct MCV MCH MCHC RDW Lymph % (Auto) Lymph # (Auto) [place] # (Auto) Baso # (Auto) Seg Neutrophils % Seg Neuts % (Manual) Lymphocytes % (Manual) Nucleated RBC % Seg Neutrophils # Seg Neutrophils # Man Lymphocytes # (Manual) Monocytes # (Manual) Eosinophils # (Manual) PT INR APTT D-Dimer Heparin Anti-Xa Level ABG pH POC ABG pCO2 POC ABG pO2 ABG pO2 ABG HCO3 ABG O2 Saturation ABG Base Excess ABG Hemoglobin ABG Oxyhemoglobin ABG Sodium ABG Potassium ABG Chloride ABG Glucose Oxyhemoglobin Carboxyhemoglobin Sodium Potassium Chloride 96.8 L Carbon Dioxide 37 H BUN 31 H Creatinine 0.6 L Glucose 213 H POC Glucose 164 H 208 H Lactic Acid Calcium Magnesium Ferritin Total Bilirubin Direct Bilirubin AST ALT Alkaline Phosphatase Lactate Dehydrogenase C-Reactive Protein Total Protein Albumin Triglycerides Lipase Arterial Blood Glucose Arterial Blood Ionized Calcium Urine WBC (Auto) Coronavirus (PCR) SARS-CoV-2 IgG Ab Crossmatch 05/31/20 05/31/20 06/01/20 17:37 23:47 03:48 WBC RBC Hgb Hct MCV MCH MCHC RDW Lymph % (Auto) Lymph # (Auto) [place] # (Auto) Baso # (Auto) Seg Neutrophils % Seg Neuts % (Manual) Lymphocytes % (Manual) Nucleated RBC % Seg Neutrophils # Seg Neutrophils # Man Lymphocytes # (Manual) Monocytes # (Manual) Eosinophils # (Manual) PT INR APTT D-Dimer Heparin Anti-Xa Level ABG pH POC ABG pCO2 59.7 H POC ABG pO2 73.9 L ABG pO2 ABG HCO3 ABG O2 Saturation ABG Base Excess ABG Hemoglobin ABG Oxyhemoglobin ABG Sodium ABG Potassium ABG Chloride 95.0 L ABG Glucose 256 H Oxyhemoglobin Carboxyhemoglobin Sodium Potassium Chloride Carbon Dioxide BUN Creatinine Glucose POC Glucose 168 H 178 H Lactic Acid Calcium Magnesium Ferritin Total Bilirubin Direct Bilirubin AST ALT Alkaline Phosphatase Lactate Dehydrogenase C-Reactive Protein Total Protein Albumin Triglycerides Lipase Arterial Blood Glucose 256 H Arterial Blood Ionized Calcium Urine WBC (Auto) Coronavirus (PCR) SARS-CoV-2 IgG Ab Crossmatch 06/01/20 06/01/20 06/01/20 05:01 07:47 07:47 WBC 14.4 H RBC 3.46 L Hgb 11.1 L Hct 34.3 L MCV 99 H MCH MCHC RDW Lymph % (Auto) Lymph # (Auto) [place] # (Auto) Baso # (Auto) Seg Neutrophils % Seg Neuts % (Manual) 86.0 H Lymphocytes % (Manual) 9.0 L Nucleated RBC % Seg Neutrophils # Seg Neutrophils # Man 12.4 H Lymphocytes # (Manual) Monocytes # (Manual) Eosinophils # (Manual) PT INR APTT D-Dimer Heparin Anti-Xa Level ABG pH POC ABG pCO2 POC ABG pO2 ABG pO2 ABG HCO3 ABG O2 Saturation ABG Base Excess ABG Hemoglobin ABG Oxyhemoglobin ABG Sodium ABG Potassium ABG Chloride ABG Glucose Oxyhemoglobin Carboxyhemoglobin Sodium Potassium Chloride Carbon Dioxide BUN Creatinine Glucose POC Glucose 197 H Lactic Acid Calcium Magnesium Ferritin Total Bilirubin Direct Bilirubin AST ALT Alkaline Phosphatase Lactate Dehydrogenase C-Reactive Protein Total Protein Albumin Triglycerides 244 H Lipase Arterial Blood Glucose Arterial Blood Ionized Calcium Urine WBC (Auto) Coronavirus (PCR) SARS-CoV-2 IgG Ab Crossmatch 06/01/20 06/01/20 06/01/20 07:47 11:46 18:15 WBC RBC Hgb Hct MCV MCH MCHC RDW Lymph % (Auto) Lymph # (Auto) [place] # (Auto) Baso # (Auto) Seg Neutrophils % Seg Neuts % (Manual) Lymphocytes % (Manual) Nucleated RBC % Seg Neutrophils # Seg Neutrophils # Man Lymphocytes # (Manual) Monocytes # (Manual) Eosinophils # (Manual) PT INR APTT D-Dimer Heparin Anti-Xa Level ABG pH POC ABG pCO2 POC ABG pO2 ABG pO2 ABG HCO3 ABG O2 Saturation ABG Base Excess ABG Hemoglobin ABG Oxyhemoglobin ABG Sodium ABG Potassium ABG Chloride ABG Glucose Oxyhemoglobin Carboxyhemoglobin Sodium Potassium Chloride 95.4 L Carbon Dioxide 35 H BUN 30 H Creatinine 0.5 L Glucose 214 H POC Glucose 181 H 221 H Lactic Acid Calcium Magnesium Ferritin Total Bilirubin Direct Bilirubin AST 54 H ALT 235 H Alkaline Phosphatase Lactate Dehydrogenase C-Reactive Protein Total Protein Albumin 2.9 L Triglycerides Lipase Arterial Blood Glucose Arterial Blood Ionized Calcium Urine WBC (Auto) Coronavirus (PCR) SARS-CoV-2 IgG Ab Crossmatch 06/01/20 06/02/20 06/02/20 23:12 04:00 05:31 WBC RBC Hgb Hct MCV MCH MCHC RDW Lymph % (Auto) Lymph # (Auto) [place] # (Auto) Baso # (Auto) Seg Neutrophils % Seg Neuts % (Manual) Lymphocytes % (Manual) Nucleated RBC % Seg Neutrophils # Seg Neutrophils # Man Lymphocytes # (Manual) Monocytes # (Manual) Eosinophils # (Manual) PT INR APTT D-Dimer Heparin Anti-Xa Level ABG pH 7.465 H POC ABG pCO2 POC ABG pO2 ABG pO2 203.4 H ABG HCO3 41.2 H ABG O2 Saturation 99.3 H ABG Base Excess 15.1 H ABG Hemoglobin 11.5 L ABG Oxyhemoglobin ABG Sodium ABG Potassium ABG Chloride ABG Glucose Oxyhemoglobin Carboxyhemoglobin Sodium Potassium Chloride Carbon Dioxide BUN Creatinine Glucose POC Glucose 197 H 184 H Lactic Acid Calcium Magnesium Ferritin Total Bilirubin Direct Bilirubin AST ALT Alkaline Phosphatase Lactate Dehydrogenase C-Reactive Protein Total Protein Albumin Triglycerides Lipase Arterial Blood Glucose Arterial Blood Ionized Calcium Urine WBC (Auto) Coronavirus (PCR) SARS-CoV-2 IgG Ab Crossmatch 06/02/20 06/02/20 06/02/20 11:49 18:06 23:00 WBC RBC Hgb Hct MCV MCH MCHC RDW Lymph % (Auto) Lymph # (Auto) [place] # (Auto) Baso # (Auto) Seg Neutrophils % Seg Neuts % (Manual) Lymphocytes % (Manual) Nucleated RBC % Seg Neutrophils # Seg Neutrophils # Man Lymphocytes # (Manual) Monocytes # (Manual) Eosinophils # (Manual) PT INR APTT D-Dimer Heparin Anti-Xa Level ABG pH POC ABG pCO2 POC ABG pO2 ABG pO2 ABG HCO3 ABG O2 Saturation ABG Base Excess ABG Hemoglobin ABG Oxyhemoglobin ABG Sodium ABG Potassium ABG Chloride ABG Glucose Oxyhemoglobin Carboxyhemoglobin Sodium Potassium Chloride Carbon Dioxide BUN Creatinine Glucose POC Glucose 195 H 177 H 228 H Lactic Acid Calcium Magnesium Ferritin Total Bilirubin Direct Bilirubin AST ALT Alkaline Phosphatase Lactate Dehydrogenase C-Reactive Protein Total Protein Albumin Triglycerides Lipase Arterial Blood Glucose Arterial Blood Ionized Calcium Urine WBC (Auto) Coronavirus (PCR) SARS-CoV-2 IgG Ab Crossmatch 06/03/20 06/03/20 06/03/20 03:58 05:19 12:21 WBC RBC Hgb Hct MCV MCH MCHC RDW Lymph % (Auto) Lymph # (Auto) [place] # (Auto) Baso # (Auto) Seg Neutrophils % Seg Neuts % (Manual) Lymphocytes % (Manual) Nucleated RBC % Seg Neutrophils # Seg Neutrophils # Man Lymphocytes # (Manual) Monocytes # (Manual) Eosinophils # (Manual) PT INR APTT D-Dimer Heparin Anti-Xa Level ABG pH POC ABG pCO2 POC ABG pO2 ABG pO2 171.0 H ABG HCO3 42.8 H ABG O2 Saturation ABG Base Excess 15.6 H ABG Hemoglobin 12.3 L ABG Oxyhemoglobin ABG Sodium ABG Potassium ABG Chloride ABG Glucose Oxyhemoglobin Carboxyhemoglobin Sodium Potassium Chloride Carbon Dioxide BUN Creatinine Glucose POC Glucose 122 H 207 H Lactic Acid Calcium Magnesium Ferritin Total Bilirubin Direct Bilirubin AST ALT Alkaline Phosphatase Lactate Dehydrogenase C-Reactive Protein Total Protein Albumin Triglycerides Lipase Arterial Blood Glucose Arterial Blood Ionized Calcium Urine WBC (Auto) Coronavirus (PCR) SARS-CoV-2 IgG Ab Crossmatch 06/03/20 06/03/20 06/04/20 17:27 23:50 03:55 WBC RBC Hgb Hct MCV MCH MCHC RDW Lymph % (Auto) Lymph # (Auto) [place] # (Auto) Baso # (Auto) Seg Neutrophils % Seg Neuts % (Manual) Lymphocytes % (Manual) Nucleated RBC % Seg Neutrophils # Seg Neutrophils # Man Lymphocytes # (Manual) Monocytes # (Manual) Eosinophils # (Manual) PT INR APTT D-Dimer Heparin Anti-Xa Level ABG pH POC ABG pCO2 POC ABG pO2 ABG pO2 117.2 H ABG HCO3 42.4 H ABG O2 Saturation ABG Base Excess 15.3 H ABG Hemoglobin 10.5 L ABG Oxyhemoglobin ABG Sodium ABG Potassium ABG Chloride ABG Glucose Oxyhemoglobin Carboxyhemoglobin Sodium Potassium Chloride Carbon Dioxide BUN Creatinine Glucose POC Glucose 157 H 214 H Lactic Acid Calcium Magnesium Ferritin Total Bilirubin Direct Bilirubin AST ALT Alkaline Phosphatase Lactate Dehydrogenase C-Reactive Protein Total Protein Albumin Triglycerides Lipase Arterial Blood Glucose Arterial Blood Ionized Calcium Urine WBC (Auto) Coronavirus (PCR) SARS-CoV-2 IgG Ab Crossmatch 06/04/20 06/04/20 06/04/20 05:49 11:41 17:30 WBC RBC Hgb Hct MCV MCH MCHC RDW Lymph % (Auto) Lymph # (Auto) [place] # (Auto) Baso # (Auto) Seg Neutrophils % Seg Neuts % (Manual) Lymphocytes % (Manual) Nucleated RBC % Seg Neutrophils # Seg Neutrophils # Man Lymphocytes # (Manual) Monocytes # (Manual) Eosinophils # (Manual) PT INR APTT D-Dimer Heparin Anti-Xa Level ABG pH POC ABG pCO2 POC ABG pO2 ABG pO2 ABG HCO3 ABG O2 Saturation ABG Base Excess ABG Hemoglobin ABG Oxyhemoglobin ABG Sodium ABG Potassium ABG Chloride ABG Glucose Oxyhemoglobin Carboxyhemoglobin Sodium Potassium Chloride Carbon Dioxide BUN Creatinine Glucose POC Glucose 149 H 233 H 156 H Lactic Acid Calcium Magnesium Ferritin Total Bilirubin Direct Bilirubin AST ALT Alkaline Phosphatase Lactate Dehydrogenase C-Reactive Protein Total Protein Albumin Triglycerides Lipase Arterial Blood Glucose Arterial Blood Ionized Calcium Urine WBC (Auto) Coronavirus (PCR) SARS-CoV-2 IgG Ab Crossmatch 06/04/20 06/04/20 06/04/20 19:01 20:53 23:41 WBC RBC 3.18 L Hgb 10.8 L Hct 31.8 L MCV 100 H MCH 34 H MCHC RDW Lymph % (Auto) Lymph # (Auto) [place] # (Auto) Baso # (Auto) Seg Neutrophils % Seg Neuts % (Manual) 86.0 H Lymphocytes % (Manual) 10.0 L Nucleated RBC % 1.0 H Seg Neutrophils # Seg Neutrophils # Man 8.5 H Lymphocytes # (Manual) 1.0 L Monocytes # (Manual) Eosinophils # (Manual) PT INR APTT D-Dimer Heparin Anti-Xa Level ABG pH POC ABG pCO2 POC ABG pO2 ABG pO2 ABG HCO3 ABG O2 Saturation ABG Base Excess ABG Hemoglobin ABG Oxyhemoglobin ABG Sodium ABG Potassium ABG Chloride ABG Glucose Oxyhemoglobin Carboxyhemoglobin Sodium Potassium 3.4 L D Chloride 96.5 L Carbon Dioxide 41 H* BUN 27 H Creatinine 0.5 L Glucose 173 H POC Glucose 217 H Lactic Acid Calcium Magnesium Ferritin Total Bilirubin Direct Bilirubin AST ALT Alkaline Phosphatase Lactate Dehydrogenase C-Reactive Protein Total Protein Albumin Triglycerides Lipase Arterial Blood Glucose Arterial Blood Ionized Calcium Urine WBC (Auto) Coronavirus (PCR) SARS-CoV-2 IgG Ab Crossmatch 06/05/20 06/05/20 06/05/20 06:05 11:54 12:35 WBC RBC Hgb Hct MCV MCH MCHC RDW Lymph % (Auto) Lymph # (Auto) [place] # (Auto) Baso # (Auto) Seg Neutrophils % Seg Neuts % (Manual) Lymphocytes % (Manual) Nucleated RBC % Seg Neutrophils # Seg Neutrophils # Man Lymphocytes # (Manual) Monocytes # (Manual) Eosinophils # (Manual) PT INR APTT D-Dimer Heparin Anti-Xa Level ABG pH POC ABG pCO2 POC ABG pO2 ABG pO2 127.9 H ABG HCO3 41.1 H ABG O2 Saturation ABG Base Excess 13.0 H ABG Hemoglobin 13.4 L ABG Oxyhemoglobin ABG Sodium ABG Potassium ABG Chloride ABG Glucose Oxyhemoglobin Carboxyhemoglobin Sodium Potassium Chloride Carbon Dioxide BUN Creatinine Glucose POC Glucose 137 H 211 H Lactic Acid Calcium Magnesium Ferritin Total Bilirubin Direct Bilirubin AST ALT Alkaline Phosphatase Lactate Dehydrogenase C-Reactive Protein Total Protein Albumin Triglycerides Lipase Arterial Blood Glucose Arterial Blood Ionized Calcium Urine WBC (Auto) Coronavirus (PCR) SARS-CoV-2 IgG Ab Crossmatch 06/05/20 06/05/20 06/06/20 17:03 23:49 04:42 WBC RBC Hgb Hct MCV MCH MCHC RDW Lymph % (Auto) Lymph # (Auto) [place] # (Auto) Baso # (Auto) Seg Neutrophils % Seg Neuts % (Manual) Lymphocytes % (Manual) Nucleated RBC % Seg Neutrophils # Seg Neutrophils # Man Lymphocytes # (Manual) Monocytes # (Manual) Eosinophils # (Manual) PT INR APTT D-Dimer Heparin Anti-Xa Level ABG pH POC ABG pCO2 56.1 H POC ABG pO2 52.5 L ABG pO2 ABG HCO3 ABG O2 Saturation ABG Base Excess ABG Hemoglobin 11.7 L ABG Oxyhemoglobin ABG Sodium ABG Potassium 3.3 L ABG Chloride 95.0 L ABG Glucose 156 H Oxyhemoglobin Carboxyhemoglobin Sodium Potassium Chloride Carbon Dioxide BUN Creatinine Glucose POC Glucose 159 H 194 H Lactic Acid Calcium Magnesium Ferritin Total Bilirubin Direct Bilirubin AST ALT Alkaline Phosphatase Lactate Dehydrogenase C-Reactive Protein Total Protein Albumin Triglycerides Lipase Arterial Blood Glucose 156 H Arterial Blood Ionized Calcium Urine WBC (Auto) Coronavirus (PCR) SARS-CoV-2 IgG Ab Crossmatch 06/06/20 06/06/20 06/06/20 05:57 12:06 17:38 WBC RBC Hgb Hct MCV MCH MCHC RDW Lymph % (Auto) Lymph # (Auto) [place] # (Auto) Baso # (Auto) Seg Neutrophils % Seg Neuts % (Manual) Lymphocytes % (Manual) Nucleated RBC % Seg Neutrophils # Seg Neutrophils # Man Lymphocytes # (Manual) Monocytes # (Manual) Eosinophils # (Manual) PT INR APTT D-Dimer Heparin Anti-Xa Level ABG pH POC ABG pCO2 POC ABG pO2 ABG pO2 ABG HCO3 ABG O2 Saturation ABG Base Excess ABG Hemoglobin ABG Oxyhemoglobin ABG Sodium ABG Potassium ABG Chloride ABG Glucose Oxyhemoglobin Carboxyhemoglobin Sodium Potassium Chloride Carbon Dioxide BUN Creatinine Glucose POC Glucose 144 H 230 H 162 H Lactic Acid Calcium Magnesium Ferritin Total Bilirubin Direct Bilirubin AST ALT Alkaline Phosphatase Lactate Dehydrogenase C-Reactive Protein Total Protein Albumin Triglycerides Lipase Arterial Blood Glucose Arterial Blood Ionized Calcium Urine WBC (Auto) Coronavirus (PCR) SARS-CoV-2 IgG Ab Crossmatch 06/06/20 06/07/20 06/07/20 23:50 04:34 06:03 WBC RBC Hgb Hct MCV MCH MCHC RDW Lymph % (Auto) Lymph # (Auto) [place] # (Auto) Baso # (Auto) Seg Neutrophils % Seg Neuts % (Manual) Lymphocytes % (Manual) Nucleated RBC % Seg Neutrophils # Seg Neutrophils # Man Lymphocytes # (Manual) Monocytes # (Manual) Eosinophils # (Manual) PT INR APTT D-Dimer Heparin Anti-Xa Level ABG pH 7.511 H POC ABG pCO2 53.5 H POC ABG pO2 114.5 H ABG pO2 ABG HCO3 ABG O2 Saturation ABG Base Excess ABG Hemoglobin 9.4 L ABG Oxyhemoglobin ABG Sodium 134.5 L ABG Potassium ABG Chloride 94.0 L ABG Glucose 186 H Oxyhemoglobin Carboxyhemoglobin Sodium Potassium Chloride Carbon Dioxide BUN Creatinine Glucose POC Glucose 181 H 155 H Lactic Acid Calcium Magnesium Ferritin Total Bilirubin Direct Bilirubin AST ALT Alkaline Phosphatase Lactate Dehydrogenase C-Reactive Protein Total Protein Albumin Triglycerides Lipase Arterial Blood Glucose 186 H Arterial Blood Ionized Calcium 4.5 L Urine WBC (Auto) Coronavirus (PCR) SARS-CoV-2 IgG Ab Crossmatch 06/07/20 06/07/20 06/07/20 13:41 14:58 14:58 WBC RBC 2.72 L Hgb 9.3 L Hct 27.2 L MCV 100 H MCH 34 H MCHC RDW Lymph % (Auto) Lymph # (Auto) [place] # (Auto) Baso # (Auto) Seg Neutrophils % Seg Neuts % (Manual) Lymphocytes % (Manual) Nucleated RBC % Seg Neutrophils # Seg Neutrophils # Man Lymphocytes # (Manual) Monocytes # (Manual) Eosinophils # (Manual) PT INR APTT D-Dimer Heparin Anti-Xa Level ABG pH POC ABG pCO2 POC ABG pO2 ABG pO2 ABG HCO3 ABG O2 Saturation ABG Base Excess ABG Hemoglobin ABG Oxyhemoglobin ABG Sodium ABG Potassium ABG Chloride ABG Glucose Oxyhemoglobin Carboxyhemoglobin Sodium Potassium Chloride 93.5 L Carbon Dioxide 39 H BUN 22 H Creatinine 0.4 L Glucose 188 H POC Glucose 201 H Lactic Acid Calcium Magnesium Ferritin Total Bilirubin Direct Bilirubin AST 61 H ALT 273 H Alkaline Phosphatase Lactate Dehydrogenase C-Reactive Protein Total Protein 5.9 L Albumin 2.7 L Triglycerides Lipase Arterial Blood Glucose Arterial Blood Ionized Calcium Urine WBC (Auto) Coronavirus (PCR) SARS-CoV-2 IgG Ab Crossmatch 06/07/20 06/08/20 06/08/20 23:18 05:31 12:07 WBC RBC Hgb Hct MCV MCH MCHC RDW Lymph % (Auto) Lymph # (Auto) [place] # (Auto) Baso # (Auto) Seg Neutrophils % Seg Neuts % (Manual) Lymphocytes % (Manual) Nucleated RBC % Seg Neutrophils # Seg Neutrophils # Man Lymphocytes # (Manual) Monocytes # (Manual) Eosinophils # (Manual) PT INR APTT D-Dimer Heparin Anti-Xa Level ABG pH POC ABG pCO2 POC ABG pO2 ABG pO2 ABG HCO3 ABG O2 Saturation ABG Base Excess ABG Hemoglobin ABG Oxyhemoglobin ABG Sodium ABG Potassium ABG Chloride ABG Glucose Oxyhemoglobin Carboxyhemoglobin Sodium Potassium Chloride Carbon Dioxide BUN Creatinine Glucose POC Glucose 214 H 129 H 179 H Lactic Acid Calcium Magnesium Ferritin Total Bilirubin Direct Bilirubin AST ALT Alkaline Phosphatase Lactate Dehydrogenase C-Reactive Protein Total Protein Albumin Triglycerides Lipase Arterial Blood Glucose Arterial Blood Ionized Calcium Urine WBC (Auto) Coronavirus (PCR) SARS-CoV-2 IgG Ab Crossmatch 06/08/20 06/08/20 06/09/20 18:18 23:35 05:42 WBC RBC Hgb Hct MCV MCH MCHC RDW Lymph % (Auto) Lymph # (Auto) [place] # (Auto) Baso # (Auto) Seg Neutrophils % Seg Neuts % (Manual) Lymphocytes % (Manual) Nucleated RBC % Seg Neutrophils # Seg Neutrophils # Man Lymphocytes # (Manual) Monocytes # (Manual) Eosinophils # (Manual) PT INR APTT D-Dimer Heparin Anti-Xa Level ABG pH POC ABG pCO2 POC ABG pO2 ABG pO2 ABG HCO3 ABG O2 Saturation ABG Base Excess ABG Hemoglobin ABG Oxyhemoglobin ABG Sodium ABG Potassium ABG Chloride ABG Glucose Oxyhemoglobin Carboxyhemoglobin Sodium Potassium Chloride Carbon Dioxide BUN Creatinine Glucose POC Glucose 172 H 177 H 137 H Lactic Acid Calcium Magnesium Ferritin Total Bilirubin Direct Bilirubin AST ALT Alkaline Phosphatase Lactate Dehydrogenase C-Reactive Protein Total Protein Albumin Triglycerides Lipase Arterial Blood Glucose Arterial Blood Ionized Calcium Urine WBC (Auto) Coronavirus (PCR) SARS-CoV-2 IgG Ab Crossmatch 06/09/20 06/09/20 06/09/20 06:20 07:55 07:55 WBC 12.4 H RBC 3.26 L Hgb 11.1 L Hct 33.4 L D MCV 102 H MCH 34 H MCHC RDW Lymph % (Auto) Lymph # (Auto) [place] # (Auto) Baso # (Auto) Seg Neutrophils % Seg Neuts % (Manual) Lymphocytes % (Manual) Nucleated RBC % Seg Neutrophils # Seg Neutrophils # Man Lymphocytes # (Manual) Monocytes # (Manual) Eosinophils # (Manual) PT INR APTT D-Dimer Heparin Anti-Xa Level ABG pH 7.466 H POC ABG pCO2 50.7 H POC ABG pO2 53.0 L ABG pO2 ABG HCO3 ABG O2 Saturation ABG Base Excess ABG Hemoglobin ABG Oxyhemoglobin ABG Sodium ABG Potassium 2.9 L ABG Chloride 93.0 L ABG Glucose 138 H Oxyhemoglobin Carboxyhemoglobin Sodium Potassium 3.0 L Chloride 92.3 L Carbon Dioxide 37 H BUN 21 H Creatinine 0.6 L Glucose 120 H POC Glucose Lactic Acid Calcium Magnesium Ferritin Total Bilirubin Direct Bilirubin AST ALT Alkaline Phosphatase Lactate Dehydrogenase C-Reactive Protein Total Protein Albumin Triglycerides Lipase Arterial Blood Glucose 138 H Arterial Blood Ionized Calcium 4.5 L Urine WBC (Auto) Coronavirus (PCR) SARS-CoV-2 IgG Ab Crossmatch 06/09/20 06/09/20 06/10/20 11:22 18:32 04:46 WBC RBC Hgb Hct MCV MCH MCHC RDW Lymph % (Auto) Lymph # (Auto) [place] # (Auto) Baso # (Auto) Seg Neutrophils % Seg Neuts % (Manual) Lymphocytes % (Manual) Nucleated RBC % Seg Neutrophils # Seg Neutrophils # Man Lymphocytes # (Manual) Monocytes # (Manual) Eosinophils # (Manual) PT INR APTT D-Dimer Heparin Anti-Xa Level ABG pH 7.501 H POC ABG pCO2 POC ABG pO2 126.5 H ABG pO2 ABG HCO3 ABG O2 Saturation ABG Base Excess ABG Hemoglobin 10.3 L ABG Oxyhemoglobin ABG Sodium ABG Potassium ABG Chloride ABG Glucose 220 H Oxyhemoglobin Carboxyhemoglobin Sodium Potassium Chloride Carbon Dioxide BUN Creatinine Glucose POC Glucose 117 H 121 H Lactic Acid Calcium Magnesium Ferritin Total Bilirubin Direct Bilirubin AST ALT Alkaline Phosphatase Lactate Dehydrogenase C-Reactive Protein Total Protein Albumin Triglycerides Lipase Arterial Blood Glucose 220 H Arterial Blood Ionized Calcium Urine WBC (Auto) Coronavirus (PCR) SARS-CoV-2 IgG Ab Crossmatch 06/10/20 06/10/20 06/10/20 05:30 09:38 12:03 WBC RBC Hgb Hct MCV MCH MCHC RDW Lymph % (Auto) Lymph # (Auto) [place] # (Auto) Baso # (Auto) Seg Neutrophils % Seg Neuts % (Manual) Lymphocytes % (Manual) Nucleated RBC % Seg Neutrophils # Seg Neutrophils # Man Lymphocytes # (Manual) Monocytes # (Manual) Eosinophils # (Manual) PT INR APTT D-Dimer Heparin Anti-Xa Level ABG pH POC ABG pCO2 POC ABG pO2 ABG pO2 ABG HCO3 ABG O2 Saturation ABG Base Excess ABG Hemoglobin ABG Oxyhemoglobin ABG Sodium ABG Potassium ABG Chloride ABG Glucose Oxyhemoglobin Carboxyhemoglobin Sodium Potassium Chloride Carbon Dioxide BUN Creatinine Glucose POC Glucose 181 H 204 H Lactic Acid Calcium Magnesium Ferritin Total Bilirubin Direct Bilirubin AST ALT Alkaline Phosphatase Lactate Dehydrogenase C-Reactive Protein Total Protein Albumin Triglycerides 738 H Lipase Arterial Blood Glucose Arterial Blood Ionized Calcium Urine WBC (Auto) Coronavirus (PCR) SARS-CoV-2 IgG Ab Crossmatch 06/10/20 06/11/20 06/11/20 17:17 00:04 04:38 WBC RBC Hgb Hct MCV MCH MCHC RDW Lymph % (Auto) Lymph # (Auto) [place] # (Auto) Baso # (Auto) Seg Neutrophils % Seg Neuts % (Manual) Lymphocytes % (Manual) Nucleated RBC % Seg Neutrophils # Seg Neutrophils # Man Lymphocytes # (Manual) Monocytes # (Manual) Eosinophils # (Manual) PT INR APTT D-Dimer Heparin Anti-Xa Level ABG pH 7.479 H POC ABG pCO2 POC ABG pO2 76.7 L ABG pO2 ABG HCO3 ABG O2 Saturation ABG Base Excess ABG Hemoglobin 9.8 L ABG Oxyhemoglobin ABG Sodium 135.8 L ABG Potassium ABG Chloride ABG Glucose 238 H Oxyhemoglobin Carboxyhemoglobin Sodium Potassium Chloride Carbon Dioxide BUN Creatinine Glucose POC Glucose 156 H 178 H Lactic Acid Calcium Magnesium Ferritin Total Bilirubin Direct Bilirubin AST ALT Alkaline Phosphatase Lactate Dehydrogenase C-Reactive Protein Total Protein Albumin Triglycerides Lipase Arterial Blood Glucose 238 H Arterial Blood Ionized Calcium Urine WBC (Auto) Coronavirus (PCR) SARS-CoV-2 IgG Ab Crossmatch 06/11/20 06/11/20 06/11/20 05:21 06:52 11:50 WBC RBC Hgb Hct MCV MCH MCHC RDW Lymph % (Auto) Lymph # (Auto) [place] # (Auto) Baso # (Auto) Seg Neutrophils % Seg Neuts % (Manual) Lymphocytes % (Manual) Nucleated RBC % Seg Neutrophils # Seg Neutrophils # Man Lymphocytes # (Manual) Monocytes # (Manual) Eosinophils # (Manual) PT INR APTT D-Dimer Heparin Anti-Xa Level ABG pH POC ABG pCO2 POC ABG pO2 ABG pO2 ABG HCO3 ABG O2 Saturation ABG Base Excess ABG Hemoglobin ABG Oxyhemoglobin ABG Sodium ABG Potassium ABG Chloride ABG Glucose Oxyhemoglobin Carboxyhemoglobin Sodium Potassium Chloride Carbon Dioxide BUN Creatinine Glucose POC Glucose 215 H 187 H Lactic Acid Calcium Magnesium Ferritin Total Bilirubin Direct Bilirubin AST ALT Alkaline Phosphatase Lactate Dehydrogenase C-Reactive Protein Total Protein Albumin Triglycerides 331 H Lipase Arterial Blood Glucose Arterial Blood Ionized Calcium Urine WBC (Auto) Coronavirus (PCR) SARS-CoV-2 IgG Ab Crossmatch 06/11/20 06/11/20 06/12/20 17:49 23:35 04:52 WBC RBC Hgb Hct MCV MCH MCHC RDW Lymph % (Auto) Lymph # (Auto) [place] # (Auto) Baso # (Auto) Seg Neutrophils % Seg Neuts % (Manual) Lymphocytes % (Manual) Nucleated RBC % Seg Neutrophils # Seg Neutrophils # Man Lymphocytes # (Manual) Monocytes # (Manual) Eosinophils # (Manual) PT INR APTT D-Dimer Heparin Anti-Xa Level ABG pH 7.486 H POC ABG pCO2 POC ABG pO2 ABG pO2 ABG HCO3 ABG O2 Saturation ABG Base Excess ABG Hemoglobin 9.4 L ABG Oxyhemoglobin ABG Sodium ABG Potassium 3.2 L ABG Chloride ABG Glucose 209 H Oxyhemoglobin Carboxyhemoglobin Sodium Potassium Chloride Carbon Dioxide BUN Creatinine Glucose POC Glucose 211 H 200 H Lactic Acid Calcium Magnesium Ferritin Total Bilirubin Direct Bilirubin AST ALT Alkaline Phosphatase Lactate Dehydrogenase C-Reactive Protein Total Protein Albumin Triglycerides Lipase Arterial Blood Glucose 209 H Arterial Blood Ionized Calcium Urine WBC (Auto) Coronavirus (PCR) SARS-CoV-2 IgG Ab Crossmatch 06/12/20 06/12/20 06/12/20 05:13 11:47 18:33 WBC RBC Hgb Hct MCV MCH MCHC RDW Lymph % (Auto) Lymph # (Auto) [place] # (Auto) Baso # (Auto) Seg Neutrophils % Seg Neuts % (Manual) Lymphocytes % (Manual) Nucleated RBC % Seg Neutrophils # Seg Neutrophils # Man Lymphocytes # (Manual) Monocytes # (Manual) Eosinophils # (Manual) PT INR APTT D-Dimer Heparin Anti-Xa Level ABG pH POC ABG pCO2 POC ABG pO2 ABG pO2 ABG HCO3 ABG O2 Saturation ABG Base Excess ABG Hemoglobin ABG Oxyhemoglobin ABG Sodium ABG Potassium ABG Chloride ABG Glucose Oxyhemoglobin Carboxyhemoglobin Sodium Potassium Chloride Carbon Dioxide BUN Creatinine Glucose POC Glucose 174 H 214 H 194 H Lactic Acid Calcium Magnesium Ferritin Total Bilirubin Direct Bilirubin AST ALT Alkaline Phosphatase Lactate Dehydrogenase C-Reactive Protein Total Protein Albumin Triglycerides Lipase Arterial Blood Glucose Arterial Blood Ionized Calcium Urine WBC (Auto) Coronavirus (PCR) SARS-CoV-2 IgG Ab Crossmatch 06/12/20 06/13/20 06/13/20 23:49 05:41 12:30 WBC RBC Hgb Hct MCV MCH MCHC RDW Lymph % (Auto) Lymph # (Auto) [place] # (Auto) Baso # (Auto) Seg Neutrophils % Seg Neuts % (Manual) Lymphocytes % (Manual) Nucleated RBC % Seg Neutrophils # Seg Neutrophils # Man Lymphocytes # (Manual) Monocytes # (Manual) Eosinophils # (Manual) PT INR APTT D-Dimer Heparin Anti-Xa Level ABG pH POC ABG pCO2 POC ABG pO2 ABG pO2 ABG HCO3 ABG O2 Saturation ABG Base Excess ABG Hemoglobin ABG Oxyhemoglobin ABG Sodium ABG Potassium ABG Chloride ABG Glucose Oxyhemoglobin Carboxyhemoglobin Sodium Potassium Chloride Carbon Dioxide BUN Creatinine Glucose POC Glucose 160 H 150 H 181 H Lactic Acid Calcium Magnesium Ferritin Total Bilirubin Direct Bilirubin AST ALT Alkaline Phosphatase Lactate Dehydrogenase C-Reactive Protein Total Protein Albumin Triglycerides Lipase Arterial Blood Glucose Arterial Blood Ionized Calcium Urine WBC (Auto) Coronavirus (PCR) SARS-CoV-2 IgG Ab Crossmatch 06/13/20 06/13/20 06/13/20 14:14 17:48 23:27 WBC 12.8 H RBC 2.33 L Hgb 8.0 L Hct 23.3 L MCV 100 H MCH 34 H MCHC RDW 15.7 H Lymph % (Auto) Lymph # (Auto) [place] # (Auto) Baso # (Auto) Seg Neutrophils % Seg Neuts % (Manual) 85.0 H Lymphocytes % (Manual) 10.0 L Nucleated RBC % Seg Neutrophils # Seg Neutrophils # Man 10.9 H Lymphocytes # (Manual) Monocytes # (Manual) Eosinophils # (Manual) PT INR APTT D-Dimer Heparin Anti-Xa Level ABG pH POC ABG pCO2 POC ABG pO2 ABG pO2 ABG HCO3 ABG O2 Saturation ABG Base Excess ABG Hemoglobin ABG Oxyhemoglobin ABG Sodium ABG Potassium ABG Chloride ABG Glucose Oxyhemoglobin Carboxyhemoglobin Sodium Potassium Chloride Carbon Dioxide BUN Creatinine Glucose POC Glucose 173 H 154 H Lactic Acid Calcium Magnesium Ferritin Total Bilirubin Direct Bilirubin AST ALT Alkaline Phosphatase Lactate Dehydrogenase C-Reactive Protein Total Protein Albumin Triglycerides Lipase Arterial Blood Glucose Arterial Blood Ionized Calcium Urine WBC (Auto) Coronavirus (PCR) SARS-CoV-2 IgG Ab Crossmatch 06/14/20 06/14/20 06/14/20 03:58 05:21 07:15 WBC 26.2 H RBC 2.97 L Hgb 9.7 L Hct 29.9 L D MCV 101 H MCH 33 H MCHC RDW 15.3 H Lymph % (Auto) Lymph # (Auto) [place] # (Auto) Baso # (Auto) Seg Neutrophils % Seg Neuts % (Manual) 79.0 H Lymphocytes % (Manual) 5.0 L Nucleated RBC % 3.0 H Seg Neutrophils # Seg Neutrophils # Man 20.7 H Lymphocytes # (Manual) Monocytes # (Manual) 1.3 H Eosinophils # (Manual) PT INR APTT D-Dimer Heparin Anti-Xa Level ABG pH POC ABG pCO2 51.5 H POC ABG pO2 70.0 L ABG pO2 ABG HCO3 ABG O2 Saturation ABG Base Excess ABG Hemoglobin 10.1 L ABG Oxyhemoglobin ABG Sodium 131.5 L ABG Potassium 3.1 L ABG Chloride 93.0 L ABG Glucose 188 H Oxyhemoglobin Carboxyhemoglobin Sodium Potassium Chloride Carbon Dioxide BUN Creatinine Glucose POC Glucose 147 H Lactic Acid Calcium Magnesium Ferritin Total Bilirubin Direct Bilirubin AST ALT Alkaline Phosphatase Lactate Dehydrogenase C-Reactive Protein Total Protein Albumin Triglycerides Lipase Arterial Blood Glucose 188 H Arterial Blood Ionized Calcium Urine WBC (Auto) Coronavirus (PCR) SARS-CoV-2 IgG Ab Crossmatch 06/14/20 06/14/20 06/14/20 07:15 11:30 11:50 WBC RBC Hgb Hct MCV MCH MCHC RDW Lymph % (Auto) Lymph # (Auto) [place] # (Auto) Baso # (Auto) Seg Neutrophils % Seg Neuts % (Manual) Lymphocytes % (Manual) Nucleated RBC % Seg Neutrophils # Seg Neutrophils # Man Lymphocytes # (Manual) Monocytes # (Manual) Eosinophils # (Manual) PT INR APTT D-Dimer Heparin Anti-Xa Level ABG pH POC ABG pCO2 POC ABG pO2 ABG pO2 ABG HCO3 ABG O2 Saturation ABG Base Excess ABG Hemoglobin ABG Oxyhemoglobin ABG Sodium ABG Potassium ABG Chloride ABG Glucose Oxyhemoglobin Carboxyhemoglobin Sodium 135 L Potassium 3.5 L Chloride 90.4 L Carbon Dioxide 38 H BUN Creatinine 0.5 L Glucose 190 H POC Glucose 176 H Lactic Acid Calcium Magnesium Ferritin 1496.0 H Total Bilirubin Direct Bilirubin AST ALT 81 H Alkaline Phosphatase Lactate Dehydrogenase C-Reactive Protein Total Protein Albumin 2.9 L Triglycerides Lipase Arterial Blood Glucose Arterial Blood Ionized Calcium Urine WBC (Auto) Coronavirus (PCR) SARS-CoV-2 IgG Ab Crossmatch 06/14/20 06/15/20 06/15/20 23:31 04:00 05:00 WBC RBC Hgb Hct MCV MCH MCHC RDW Lymph % (Auto) Lymph # (Auto) [place] # (Auto) Baso # (Auto) Seg Neutrophils % Seg Neuts % (Manual) Lymphocytes % (Manual) Nucleated RBC % Seg Neutrophils # Seg Neutrophils # Man Lymphocytes # (Manual) Monocytes # (Manual) Eosinophils # (Manual) PT INR APTT D-Dimer Heparin Anti-Xa Level ABG pH POC ABG pCO2 POC ABG pO2 ABG pO2 ABG HCO3 ABG O2 Saturation ABG Base Excess ABG Hemoglobin ABG Oxyhemoglobin ABG Sodium ABG Potassium ABG Chloride ABG Glucose Oxyhemoglobin Carboxyhemoglobin Sodium 133 L Potassium Chloride 91.1 L Carbon Dioxide 34 H BUN Creatinine 0.4 L Glucose 159 H POC Glucose 200 H Lactic Acid Calcium Magnesium Ferritin Total Bilirubin 2.00 H Direct Bilirubin AST 47 H ALT 77 H Alkaline Phosphatase Lactate Dehydrogenase C-Reactive Protein Total Protein Albumin 2.6 L Triglycerides 152 H Lipase Arterial Blood Glucose Arterial Blood Ionized Calcium Urine WBC (Auto) Coronavirus (PCR) SARS-CoV-2 IgG Ab Crossmatch 06/15/20 06/15/20 06/15/20 05:35 06:27 11:38 WBC RBC Hgb Hct MCV MCH MCHC RDW Lymph % (Auto) Lymph # (Auto) [place] # (Auto) Baso # (Auto) Seg Neutrophils % Seg Neuts % (Manual) Lymphocytes % (Manual) Nucleated RBC % Seg Neutrophils # Seg Neutrophils # Man Lymphocytes # (Manual) Monocytes # (Manual) Eosinophils # (Manual) PT INR APTT D-Dimer Heparin Anti-Xa Level ABG pH POC ABG pCO2 61.0 H POC ABG pO2 67.9 L ABG pO2 ABG HCO3 ABG O2 Saturation ABG Base Excess ABG Hemoglobin 10.4 L ABG Oxyhemoglobin ABG Sodium 132.7 L ABG Potassium 3.3 L ABG Chloride 92.0 L ABG Glucose 158 H Oxyhemoglobin Carboxyhemoglobin Sodium Potassium Chloride Carbon Dioxide BUN Creatinine Glucose POC Glucose 148 H 197 H Lactic Acid Calcium Magnesium Ferritin Total Bilirubin Direct Bilirubin AST ALT Alkaline Phosphatase Lactate Dehydrogenase C-Reactive Protein Total Protein Albumin Triglycerides Lipase Arterial Blood Glucose 158 H Arterial Blood Ionized Calcium Urine WBC (Auto) Coronavirus (PCR) SARS-CoV-2 IgG Ab Crossmatch 06/15/20 06/15/20 06/16/20 17:29 Unknown 00:01 WBC 20.7 H RBC 2.57 L Hgb 8.9 L Hct 25.8 L MCV 101 H MCH 35 H MCHC 35 H RDW 16.0 H Lymph % (Auto) Lymph # (Auto) [place] # (Auto) Baso # (Auto) Seg Neutrophils % Seg Neuts % (Manual) 83.0 H Lymphocytes % (Manual) 8.0 L Nucleated RBC % Seg Neutrophils # Seg Neutrophils # Man 17.2 H Lymphocytes # (Manual) Monocytes # (Manual) 1.2 H Eosinophils # (Manual) PT INR APTT D-Dimer Heparin Anti-Xa Level ABG pH POC ABG pCO2 POC ABG pO2 ABG pO2 ABG HCO3 ABG O2 Saturation ABG Base Excess ABG Hemoglobin ABG Oxyhemoglobin ABG Sodium ABG Potassium ABG Chloride ABG Glucose Oxyhemoglobin Carboxyhemoglobin Sodium Potassium Chloride Carbon Dioxide BUN Creatinine Glucose POC Glucose 231 H 257 H Lactic Acid Calcium Magnesium Ferritin Total Bilirubin Direct Bilirubin AST ALT Alkaline Phosphatase Lactate Dehydrogenase C-Reactive Protein Total Protein Albumin Triglycerides Lipase Arterial Blood Glucose Arterial Blood Ionized Calcium Urine WBC (Auto) Coronavirus (PCR) SARS-CoV-2 IgG Ab Crossmatch 06/16/20 06/16/20 06/16/20 04:00 04:00 05:22 WBC 13.8 H RBC 2.03 L Hgb 7.6 L Hct 20.7 L MCV 102 H MCH 37 H MCHC 37 H RDW 16.2 H Lymph % (Auto) 4.4 L Lymph # (Auto) 0.6 L [place] # (Auto) Baso # (Auto) Seg Neutrophils % Seg Neuts % (Manual) Lymphocytes % (Manual) Nucleated RBC % Seg Neutrophils # 12.7 H Seg Neutrophils # Man Lymphocytes # (Manual) Monocytes # (Manual) Eosinophils # (Manual) PT INR APTT D-Dimer Heparin Anti-Xa Level ABG pH POC ABG pCO2 POC ABG pO2 ABG pO2 ABG HCO3 ABG O2 Saturation ABG Base Excess ABG Hemoglobin ABG Oxyhemoglobin ABG Sodium ABG Potassium ABG Chloride ABG Glucose Oxyhemoglobin Carboxyhemoglobin Sodium 130 L Potassium Chloride 88.9 L Carbon Dioxide 36 H BUN Creatinine 0.3 L Glucose 276 H POC Glucose 250 H Lactic Acid Calcium Magnesium Ferritin Total Bilirubin Direct Bilirubin AST ALT Alkaline Phosphatase Lactate Dehydrogenase C-Reactive Protein Total Protein Albumin Triglycerides Lipase Arterial Blood Glucose Arterial Blood Ionized Calcium Urine WBC (Auto) Coronavirus (PCR) SARS-CoV-2 IgG Ab Crossmatch 06/16/20 06/16/20 06/17/20 12:44 18:18 00:39 WBC RBC Hgb Hct MCV MCH MCHC RDW Lymph % (Auto) Lymph # (Auto) [place] # (Auto) Baso # (Auto) Seg Neutrophils % Seg Neuts % (Manual) Lymphocytes % (Manual) Nucleated RBC % Seg Neutrophils # Seg Neutrophils # Man Lymphocytes # (Manual) Monocytes # (Manual) Eosinophils # (Manual) PT INR APTT D-Dimer Heparin Anti-Xa Level ABG pH POC ABG pCO2 POC ABG pO2 ABG pO2 ABG HCO3 ABG O2 Saturation ABG Base Excess ABG Hemoglobin ABG Oxyhemoglobin ABG Sodium ABG Potassium ABG Chloride ABG Glucose Oxyhemoglobin Carboxyhemoglobin Sodium Potassium Chloride Carbon Dioxide BUN Creatinine Glucose POC Glucose 279 H 239 H 247 H Lactic Acid Calcium Magnesium Ferritin Total Bilirubin Direct Bilirubin AST ALT Alkaline Phosphatase Lactate Dehydrogenase C-Reactive Protein Total Protein Albumin Triglycerides Lipase Arterial Blood Glucose Arterial Blood Ionized Calcium Urine WBC (Auto) Coronavirus (PCR) SARS-CoV-2 IgG Ab Crossmatch 06/17/20 06/17/20 06/17/20 03:40 04:08 10:54 WBC RBC Hgb Hct MCV MCH MCHC RDW Lymph % (Auto) Lymph # (Auto) [place] # (Auto) Baso # (Auto) Seg Neutrophils % Seg Neuts % (Manual) Lymphocytes % (Manual) Nucleated RBC % Seg Neutrophils # Seg Neutrophils # Man Lymphocytes # (Manual) Monocytes # (Manual) Eosinophils # (Manual) PT INR APTT D-Dimer Heparin Anti-Xa Level ABG pH POC ABG pCO2 65.7 H POC ABG pO2 ABG pO2 ABG HCO3 ABG O2 Saturation ABG Base Excess ABG Hemoglobin 11.9 L ABG Oxyhemoglobin ABG Sodium ABG Potassium ABG Chloride 93.0 L ABG Glucose 244 H Oxyhemoglobin Carboxyhemoglobin Sodium Potassium Chloride Carbon Dioxide BUN Creatinine Glucose POC Glucose 221 H 248 H Lactic Acid Calcium Magnesium Ferritin Total Bilirubin Direct Bilirubin AST ALT Alkaline Phosphatase Lactate Dehydrogenase C-Reactive Protein Total Protein Albumin Triglycerides Lipase Arterial Blood Glucose 244 H Arterial Blood Ionized Calcium Urine WBC (Auto) Coronavirus (PCR) SARS-CoV-2 IgG Ab Crossmatch 06/17/20 06/17/20 06/17/20 17:47 23:11 23:29 WBC RBC Hgb Hct MCV MCH MCHC RDW Lymph % (Auto) Lymph # (Auto) [place] # (Auto) Baso # (Auto) Seg Neutrophils % Seg Neuts % (Manual) Lymphocytes % (Manual) Nucleated RBC % Seg Neutrophils # Seg Neutrophils # Man Lymphocytes # (Manual) Monocytes # (Manual) Eosinophils # (Manual) PT INR APTT D-Dimer Heparin Anti-Xa Level ABG pH POC ABG pCO2 85.2 H POC ABG pO2 48.4 L ABG pO2 ABG HCO3 ABG O2 Saturation ABG Base Excess ABG Hemoglobin 8.0 L ABG Oxyhemoglobin ABG Sodium ABG Potassium ABG Chloride 95.0 L ABG Glucose 292 H Oxyhemoglobin Carboxyhemoglobin Sodium Potassium Chloride Carbon Dioxide BUN Creatinine Glucose POC Glucose 245 H 252 H Lactic Acid Calcium Magnesium Ferritin Total Bilirubin Direct Bilirubin AST ALT Alkaline Phosphatase Lactate Dehydrogenase C-Reactive Protein Total Protein Albumin Triglycerides Lipase Arterial Blood Glucose 292 H Arterial Blood Ionized Calcium Urine WBC (Auto) Coronavirus (PCR) SARS-CoV-2 IgG Ab Crossmatch 06/18/20 06/18/20 06/18/20 03:14 05:34 11:47 WBC RBC Hgb Hct MCV MCH MCHC RDW Lymph % (Auto) Lymph # (Auto) [place] # (Auto) Baso # (Auto) Seg Neutrophils % Seg Neuts % (Manual) Lymphocytes % (Manual) Nucleated RBC % Seg Neutrophils # Seg Neutrophils # Man Lymphocytes # (Manual) Monocytes # (Manual) Eosinophils # (Manual) PT INR APTT D-Dimer Heparin Anti-Xa Level ABG pH POC ABG pCO2 65.4 H POC ABG pO2 160.7 H ABG pO2 ABG HCO3 ABG O2 Saturation ABG Base Excess ABG Hemoglobin 7.8 L ABG Oxyhemoglobin ABG Sodium ABG Potassium ABG Chloride 95.0 L ABG Glucose 251 H Oxyhemoglobin Carboxyhemoglobin Sodium Potassium Chloride Carbon Dioxide BUN Creatinine Glucose POC Glucose 243 H 263 H Lactic Acid Calcium Magnesium Ferritin Total Bilirubin Direct Bilirubin AST ALT Alkaline Phosphatase Lactate Dehydrogenase C-Reactive Protein Total Protein Albumin Triglycerides Lipase Arterial Blood Glucose 251 H Arterial Blood Ionized Calcium Urine WBC (Auto) Coronavirus (PCR) SARS-CoV-2 IgG Ab Crossmatch 06/18/20 06/18/20 06/19/20 17:31 23:33 04:32 WBC RBC Hgb Hct MCV MCH MCHC RDW Lymph % (Auto) Lymph # (Auto) [place] # (Auto) Baso # (Auto) Seg Neutrophils % Seg Neuts % (Manual) Lymphocytes % (Manual) Nucleated RBC % Seg Neutrophils # Seg Neutrophils # Man Lymphocytes # (Manual) Monocytes # (Manual) Eosinophils # (Manual) PT INR APTT D-Dimer Heparin Anti-Xa Level ABG pH POC ABG pCO2 83.1 H POC ABG pO2 65.8 L ABG pO2 ABG HCO3 ABG O2 Saturation ABG Base Excess ABG Hemoglobin 8.9 L ABG Oxyhemoglobin ABG Sodium ABG Potassium ABG Chloride 96.0 L ABG Glucose 297 H Oxyhemoglobin Carboxyhemoglobin Sodium Potassium Chloride Carbon Dioxide BUN Creatinine Glucose POC Glucose 286 H 238 H Lactic Acid Calcium Magnesium Ferritin Total Bilirubin Direct Bilirubin AST ALT Alkaline Phosphatase Lactate Dehydrogenase C-Reactive Protein Total Protein Albumin Triglycerides Lipase Arterial Blood Glucose 297 H Arterial Blood Ionized Calcium Urine WBC (Auto) Coronavirus (PCR) SARS-CoV-2 IgG Ab Crossmatch 06/19/20 06/19/20 06/19/20 05:55 11:20 17:12 WBC RBC Hgb Hct MCV MCH MCHC RDW Lymph % (Auto) Lymph # (Auto) [place] # (Auto) Baso # (Auto) Seg Neutrophils % Seg Neuts % (Manual) Lymphocytes % (Manual) Nucleated RBC % Seg Neutrophils # Seg Neutrophils # Man Lymphocytes # (Manual) Monocytes # (Manual) Eosinophils # (Manual) PT INR APTT D-Dimer Heparin Anti-Xa Level ABG pH POC ABG pCO2 POC ABG pO2 ABG pO2 ABG HCO3 ABG O2 Saturation ABG Base Excess ABG Hemoglobin ABG Oxyhemoglobin ABG Sodium ABG Potassium ABG Chloride ABG Glucose Oxyhemoglobin Carboxyhemoglobin Sodium Potassium Chloride Carbon Dioxide BUN Creatinine Glucose POC Glucose 274 H 282 H 298 H Lactic Acid Calcium Magnesium Ferritin Total Bilirubin Direct Bilirubin AST ALT Alkaline Phosphatase Lactate Dehydrogenase C-Reactive Protein Total Protein Albumin Triglycerides Lipase Arterial Blood Glucose Arterial Blood Ionized Calcium Urine WBC (Auto) Coronavirus (PCR) SARS-CoV-2 IgG Ab Crossmatch 06/19/20 06/20/20 06/20/20 23:08 03:33 06:01 WBC RBC Hgb Hct MCV MCH MCHC RDW Lymph % (Auto) Lymph # (Auto) [place] # (Auto) Baso # (Auto) Seg Neutrophils % Seg Neuts % (Manual) Lymphocytes % (Manual) Nucleated RBC % Seg Neutrophils # Seg Neutrophils # Man Lymphocytes # (Manual) Monocytes # (Manual) Eosinophils # (Manual) PT INR APTT D-Dimer Heparin Anti-Xa Level ABG pH POC ABG pCO2 POC ABG pO2 ABG pO2 69.9 L ABG HCO3 50.8 H ABG O2 Saturation ABG Base Excess 24.2 H ABG Hemoglobin 5.8 L ABG Oxyhemoglobin ABG Sodium ABG Potassium ABG Chloride ABG Glucose Oxyhemoglobin Carboxyhemoglobin Sodium Potassium Chloride Carbon Dioxide BUN Creatinine Glucose POC Glucose 293 H 182 H Lactic Acid Calcium Magnesium Ferritin Total Bilirubin Direct Bilirubin AST ALT Alkaline Phosphatase Lactate Dehydrogenase C-Reactive Protein Total Protein Albumin Triglycerides Lipase Arterial Blood Glucose Arterial Blood Ionized Calcium Urine WBC (Auto) Coronavirus (PCR) SARS-CoV-2 IgG Ab Crossmatch 06/20/20 06/20/20 06/20/20 11:47 17:46 23:37 WBC RBC Hgb Hct MCV MCH MCHC RDW Lymph % (Auto) Lymph # (Auto) [place] # (Auto) Baso # (Auto) Seg Neutrophils % Seg Neuts % (Manual) Lymphocytes % (Manual) Nucleated RBC % Seg Neutrophils # Seg Neutrophils # Man Lymphocytes # (Manual) Monocytes # (Manual) Eosinophils # (Manual) PT INR APTT D-Dimer Heparin Anti-Xa Level ABG pH POC ABG pCO2 POC ABG pO2 ABG pO2 ABG HCO3 ABG O2 Saturation ABG Base Excess ABG Hemoglobin ABG Oxyhemoglobin ABG Sodium ABG Potassium ABG Chloride ABG Glucose Oxyhemoglobin Carboxyhemoglobin Sodium Potassium Chloride Carbon Dioxide BUN Creatinine Glucose POC Glucose 170 H 215 H 256 H Lactic Acid Calcium Magnesium Ferritin Total Bilirubin Direct Bilirubin AST ALT Alkaline Phosphatase Lactate Dehydrogenase C-Reactive Protein Total Protein Albumin Triglycerides Lipase Arterial Blood Glucose Arterial Blood Ionized Calcium Urine WBC (Auto) Coronavirus (PCR) SARS-CoV-2 IgG Ab Crossmatch 06/21/20 06/21/20 06/21/20 04:00 05:14 05:51 WBC RBC Hgb Hct MCV MCH MCHC RDW Lymph % (Auto) Lymph # (Auto) [place] # (Auto) Baso # (Auto) Seg Neutrophils % Seg Neuts % (Manual) Lymphocytes % (Manual) Nucleated RBC % Seg Neutrophils # Seg Neutrophils # Man Lymphocytes # (Manual) Monocytes # (Manual) Eosinophils # (Manual) PT INR APTT D-Dimer Heparin Anti-Xa Level ABG pH 7.474 H POC ABG pCO2 POC ABG pO2 ABG pO2 ABG HCO3 52.1 H ABG O2 Saturation ABG Base Excess 23.3 H ABG Hemoglobin 5.3 L ABG Oxyhemoglobin ABG Sodium ABG Potassium ABG Chloride ABG Glucose Oxyhemoglobin 93.8 L Carboxyhemoglobin Sodium Potassium Chloride Carbon Dioxide BUN Creatinine Glucose POC Glucose 122 H 129 H Lactic Acid Calcium Magnesium Ferritin Total Bilirubin Direct Bilirubin AST ALT Alkaline Phosphatase Lactate Dehydrogenase C-Reactive Protein Total Protein Albumin Triglycerides Lipase Arterial Blood Glucose Arterial Blood Ionized Calcium Urine WBC (Auto) Coronavirus (PCR) SARS-CoV-2 IgG Ab Crossmatch 06/21/20 06/21/20 06/21/20 11:00 11:00 11:42 WBC 14.2 H RBC 1.85 L Hgb 6.2 L Hct 19.5 L* MCV 105 H MCH 34 H MCHC RDW 18.0 H Lymph % (Auto) Lymph # (Auto) [place] # (Auto) Baso # (Auto) Seg Neutrophils % Seg Neuts % (Manual) Lymphocytes % (Manual) Nucleated RBC % Seg Neutrophils # Seg Neutrophils # Man Lymphocytes # (Manual) Monocytes # (Manual) Eosinophils # (Manual) PT INR APTT D-Dimer Heparin Anti-Xa Level ABG pH POC ABG pCO2 POC ABG pO2 ABG pO2 ABG HCO3 ABG O2 Saturation ABG Base Excess ABG Hemoglobin ABG Oxyhemoglobin ABG Sodium ABG Potassium ABG Chloride ABG Glucose Oxyhemoglobin Carboxyhemoglobin Sodium 147 H Potassium Chloride Carbon Dioxide 51 H* BUN 31 H Creatinine 0.5 L Glucose 224 H POC Glucose 217 H Lactic Acid Calcium Magnesium Ferritin Total Bilirubin Direct Bilirubin AST ALT Alkaline Phosphatase Lactate Dehydrogenase C-Reactive Protein Total Protein Albumin Triglycerides Lipase Arterial Blood Glucose Arterial Blood Ionized Calcium Urine WBC (Auto) Coronavirus (PCR) SARS-CoV-2 IgG Ab Crossmatch 06/21/20 06/21/20 06/21/20 14:18 14:30 18:36 WBC RBC Hgb Hct MCV MCH MCHC RDW Lymph % (Auto) Lymph # (Auto) [place] # (Auto) Baso # (Auto) Seg Neutrophils % Seg Neuts % (Manual) Lymphocytes % (Manual) Nucleated RBC % Seg Neutrophils # Seg Neutrophils # Man Lymphocytes # (Manual) Monocytes # (Manual) Eosinophils # (Manual) PT 15.1 H INR 1.19 H APTT D-Dimer Heparin Anti-Xa Level ABG pH POC ABG pCO2 POC ABG pO2 ABG pO2 ABG HCO3 ABG O2 Saturation ABG Base Excess ABG Hemoglobin ABG Oxyhemoglobin ABG Sodium ABG Potassium ABG Chloride ABG Glucose Oxyhemoglobin Carboxyhemoglobin Sodium Potassium Chloride Carbon Dioxide BUN Creatinine Glucose POC Glucose 185 H Lactic Acid Calcium Magnesium Ferritin Total Bilirubin Direct Bilirubin AST ALT Alkaline Phosphatase Lactate Dehydrogenase C-Reactive Protein Total Protein Albumin Triglycerides Lipase Arterial Blood Glucose Arterial Blood Ionized Calcium Urine WBC (Auto) Coronavirus (PCR) SARS-CoV-2 IgG Ab Crossmatch See Detail 06/21/20 06/22/20 06/22/20 21:14 03:50 04:00 WBC RBC Hgb Hct MCV MCH MCHC RDW Lymph % (Auto) Lymph # (Auto) [place] # (Auto) Baso # (Auto) Seg Neutrophils % Seg Neuts % (Manual) Lymphocytes % (Manual) Nucleated RBC % Seg Neutrophils # Seg Neutrophils # Man Lymphocytes # (Manual) Monocytes # (Manual) Eosinophils # (Manual) PT INR APTT D-Dimer Heparin Anti-Xa Level ABG pH 7.451 H POC ABG pCO2 POC ABG pO2 ABG pO2 ABG HCO3 47.5 H ABG O2 Saturation ABG Base Excess 22.0 H ABG Hemoglobin < 5.1 L ABG Oxyhemoglobin ABG Sodium ABG Potassium ABG Chloride ABG Glucose Oxyhemoglobin 94.1 L Carboxyhemoglobin Sodium 149 H Potassium 3.5 L Chloride Carbon Dioxide 42 H* D BUN 34 H Creatinine 0.4 L Glucose 219 H POC Glucose 250 H Lactic Acid Calcium Magnesium Ferritin Total Bilirubin Direct Bilirubin AST ALT Alkaline Phosphatase Lactate Dehydrogenase C-Reactive Protein Total Protein Albumin Triglycerides Lipase Arterial Blood Glucose Arterial Blood Ionized Calcium Urine WBC (Auto) Coronavirus (PCR) SARS-CoV-2 IgG Ab Crossmatch 06/22/20 06/22/20 06/22/20 12:16 14:29 17:56 WBC RBC Hgb Hct MCV MCH MCHC RDW Lymph % (Auto) Lymph # (Auto) [place] # (Auto) Baso # (Auto) Seg Neutrophils % Seg Neuts % (Manual) Lymphocytes % (Manual) Nucleated RBC % Seg Neutrophils # Seg Neutrophils # Man Lymphocytes # (Manual) Monocytes # (Manual) Eosinophils # (Manual) PT 11.8 L INR APTT 23.5 L D-Dimer Heparin Anti-Xa Level ABG pH POC ABG pCO2 POC ABG pO2 ABG pO2 ABG HCO3 ABG O2 Saturation ABG Base Excess ABG Hemoglobin ABG Oxyhemoglobin ABG Sodium ABG Potassium ABG Chloride ABG Glucose Oxyhemoglobin Carboxyhemoglobin Sodium Potassium Chloride Carbon Dioxide BUN Creatinine Glucose POC Glucose 215 H 215 H Lactic Acid Calcium Magnesium Ferritin Total Bilirubin Direct Bilirubin AST ALT Alkaline Phosphatase Lactate Dehydrogenase C-Reactive Protein Total Protein Albumin Triglycerides Lipase Arterial Blood Glucose Arterial Blood Ionized Calcium Urine WBC (Auto) Coronavirus (PCR) SARS-CoV-2 IgG Ab Crossmatch 06/22/20 06/22/20 06/22/20 23:36 23:45 Unknown WBC 14.1 H RBC 2.70 L Hgb 8.9 L 8.9 L Hct 26.9 L 27.2 L D MCV 101 H MCH 33 H MCHC RDW 17.7 H Lymph % (Auto) Lymph # (Auto) [place] # (Auto) Baso # (Auto) Seg Neutrophils % Seg Neuts % (Manual) 92.0 H Lymphocytes % (Manual) 5.0 L Nucleated RBC % Seg Neutrophils # Seg Neutrophils # Man 13.0 H Lymphocytes # (Manual) 0.7 L Monocytes # (Manual) Eosinophils # (Manual) PT INR APTT D-Dimer Heparin Anti-Xa Level ABG pH POC ABG pCO2 POC ABG pO2 ABG pO2 ABG HCO3 ABG O2 Saturation ABG Base Excess ABG Hemoglobin ABG Oxyhemoglobin ABG Sodium ABG Potassium ABG Chloride ABG Glucose Oxyhemoglobin Carboxyhemoglobin Sodium Potassium Chloride Carbon Dioxide BUN Creatinine Glucose POC Glucose 208 H Lactic Acid Calcium Magnesium Ferritin Total Bilirubin Direct Bilirubin AST ALT Alkaline Phosphatase Lactate Dehydrogenase C-Reactive Protein Total Protein Albumin Triglycerides Lipase Arterial Blood Glucose Arterial Blood Ionized Calcium Urine WBC (Auto) Coronavirus (PCR) SARS-CoV-2 IgG Ab Crossmatch 06/23/20 06/23/20 06/23/20 05:17 05:19 06:50 WBC RBC Hgb Hct MCV MCH MCHC RDW Lymph % (Auto) Lymph # (Auto) [place] # (Auto) Baso # (Auto) Seg Neutrophils % Seg Neuts % (Manual) Lymphocytes % (Manual) Nucleated RBC % Seg Neutrophils # Seg Neutrophils # Man Lymphocytes # (Manual) Monocytes # (Manual) Eosinophils # (Manual) PT INR APTT D-Dimer Heparin Anti-Xa Level ABG pH POC ABG pCO2 69.7 H POC ABG pO2 63.3 L ABG pO2 ABG HCO3 ABG O2 Saturation ABG Base Excess ABG Hemoglobin 10.1 L ABG Oxyhemoglobin ABG Sodium ABG Potassium 3.3 L ABG Chloride ABG Glucose 226 H Oxyhemoglobin Carboxyhemoglobin Sodium Potassium 3.0 L Chloride Carbon Dioxide 41 H* BUN 26 H Creatinine 0.4 L Glucose 209 H POC Glucose 200 H Lactic Acid Calcium Magnesium Ferritin Total Bilirubin Direct Bilirubin AST ALT Alkaline Phosphatase Lactate Dehydrogenase C-Reactive Protein Total Protein Albumin 2.9 L Triglycerides Lipase Arterial Blood Glucose 226 H Arterial Blood Ionized Calcium Urine WBC (Auto) Coronavirus (PCR) SARS-CoV-2 IgG Ab Crossmatch 06/23/20 06/23/20 06/23/20 09:41 12:04 18:16 WBC RBC Hgb 9.1 L Hct 28.0 L MCV MCH MCHC RDW Lymph % (Auto) Lymph # (Auto) [place] # (Auto) Baso # (Auto) Seg Neutrophils % Seg Neuts % (Manual) Lymphocytes % (Manual) Nucleated RBC % Seg Neutrophils # Seg Neutrophils # Man Lymphocytes # (Manual) Monocytes # (Manual) Eosinophils # (Manual) PT INR APTT D-Dimer Heparin Anti-Xa Level ABG pH POC ABG pCO2 POC ABG pO2 ABG pO2 ABG HCO3 ABG O2 Saturation ABG Base Excess ABG Hemoglobin ABG Oxyhemoglobin ABG Sodium ABG Potassium ABG Chloride ABG Glucose Oxyhemoglobin Carboxyhemoglobin Sodium Potassium Chloride Carbon Dioxide BUN Creatinine Glucose POC Glucose 146 H 162 H Lactic Acid Calcium Magnesium Ferritin Total Bilirubin Direct Bilirubin AST ALT Alkaline Phosphatase Lactate Dehydrogenase C-Reactive Protein Total Protein Albumin Triglycerides Lipase Arterial Blood Glucose Arterial Blood Ionized Calcium Urine WBC (Auto) Coronavirus (PCR) SARS-CoV-2 IgG Ab Crossmatch 06/23/20 06/23/20 06/24/20 23:24 23:41 02:39 WBC RBC Hgb 8.2 L 8.8 L Hct 24.9 L 26.8 L MCV MCH MCHC RDW Lymph % (Auto) Lymph # (Auto) [place] # (Auto) Baso # (Auto) Seg Neutrophils % Seg Neuts % (Manual) Lymphocytes % (Manual) Nucleated RBC % Seg Neutrophils # Seg Neutrophils # Man Lymphocytes # (Manual) Monocytes # (Manual) Eosinophils # (Manual) PT INR APTT D-Dimer Heparin Anti-Xa Level ABG pH POC ABG pCO2 POC ABG pO2 ABG pO2 ABG HCO3 ABG O2 Saturation ABG Base Excess ABG Hemoglobin ABG Oxyhemoglobin ABG Sodium ABG Potassium ABG Chloride ABG Glucose Oxyhemoglobin Carboxyhemoglobin Sodium Potassium Chloride Carbon Dioxide BUN Creatinine Glucose POC Glucose 248 H Lactic Acid Calcium Magnesium Ferritin Total Bilirubin Direct Bilirubin AST ALT Alkaline Phosphatase Lactate Dehydrogenase C-Reactive Protein Total Protein Albumin Triglycerides Lipase Arterial Blood Glucose Arterial Blood Ionized Calcium Urine WBC (Auto) Coronavirus (PCR) SARS-CoV-2 IgG Ab Crossmatch 06/24/20 06/24/20 06/24/20 02:39 02:45 05:31 WBC RBC Hgb Hct MCV MCH MCHC RDW Lymph % (Auto) Lymph # (Auto) [place] # (Auto) Baso # (Auto) Seg Neutrophils % Seg Neuts % (Manual) Lymphocytes % (Manual) Nucleated RBC % Seg Neutrophils # Seg Neutrophils # Man Lymphocytes # (Manual) Monocytes # (Manual) Eosinophils # (Manual) PT INR APTT D-Dimer Heparin Anti-Xa Level ABG pH POC ABG pCO2 66.9 H POC ABG pO2 109.7 H ABG pO2 ABG HCO3 ABG O2 Saturation ABG Base Excess ABG Hemoglobin 9.7 L ABG Oxyhemoglobin ABG Sodium 135.0 L ABG Potassium ABG Chloride 97.0 L ABG Glucose 277 H Oxyhemoglobin Carboxyhemoglobin Sodium 136 L Potassium Chloride 95.0 L Carbon Dioxide 34 H D BUN 24 H Creatinine 0.3 L Glucose 260 H POC Glucose 164 H Lactic Acid Calcium Magnesium Ferritin Total Bilirubin Direct Bilirubin AST ALT Alkaline Phosphatase Lactate Dehydrogenase C-Reactive Protein Total Protein 5.2 L Albumin 2.6 L Triglycerides Lipase Arterial Blood Glucose 277 H Arterial Blood Ionized Calcium Urine WBC (Auto) Coronavirus (PCR) SARS-CoV-2 IgG Ab Crossmatch 06/24/20 06/24/20 06/24/20 10:00 11:49 17:39 WBC RBC Hgb 8.9 L Hct 26.5 L MCV MCH MCHC RDW Lymph % (Auto) Lymph # (Auto) [place] # (Auto) Baso # (Auto) Seg Neutrophils % Seg Neuts % (Manual) Lymphocytes % (Manual) Nucleated RBC % Seg Neutrophils # Seg Neutrophils # Man Lymphocytes # (Manual) Monocytes # (Manual) Eosinophils # (Manual) PT INR APTT D-Dimer Heparin Anti-Xa Level ABG pH POC ABG pCO2 POC ABG pO2 ABG pO2 ABG HCO3 ABG O2 Saturation ABG Base Excess ABG Hemoglobin ABG Oxyhemoglobin ABG Sodium ABG Potassium ABG Chloride ABG Glucose Oxyhemoglobin Carboxyhemoglobin Sodium Potassium Chloride Carbon Dioxide BUN Creatinine Glucose POC Glucose 198 H 223 H Lactic Acid Calcium Magnesium Ferritin Total Bilirubin Direct Bilirubin AST ALT Alkaline Phosphatase Lactate Dehydrogenase C-Reactive Protein Total Protein Albumin Triglycerides Lipase Arterial Blood Glucose Arterial Blood Ionized Calcium Urine WBC (Auto) Coronavirus (PCR) SARS-CoV-2 IgG Ab Crossmatch 06/24/20 06/25/20 06/25/20 23:56 02:16 04:08 WBC RBC Hgb Hct MCV MCH MCHC RDW Lymph % (Auto) Lymph # (Auto) [place] # (Auto) Baso # (Auto) Seg Neutrophils % Seg Neuts % (Manual) Lymphocytes % (Manual) Nucleated RBC % Seg Neutrophils # Seg Neutrophils # Man Lymphocytes # (Manual) Monocytes # (Manual) Eosinophils # (Manual) PT INR APTT D-Dimer Heparin Anti-Xa Level ABG pH 7.454 H POC ABG pCO2 56.9 H POC ABG pO2 61.0 L ABG pO2 ABG HCO3 ABG O2 Saturation ABG Base Excess ABG Hemoglobin ABG Oxyhemoglobin ABG Sodium 134.3 L ABG Potassium ABG Chloride 92.0 L ABG Glucose 246 H Oxyhemoglobin Carboxyhemoglobin Sodium 134 L Potassium Chloride 89.7 L Carbon Dioxide 36 H BUN Creatinine 0.3 L Glucose 254 H POC Glucose 225 H Lactic Acid Calcium Magnesium Ferritin Total Bilirubin Direct Bilirubin AST ALT Alkaline Phosphatase Lactate Dehydrogenase C-Reactive Protein Total Protein Albumin 2.9 L Triglycerides Lipase Arterial Blood Glucose 246 H Arterial Blood Ionized Calcium Urine WBC (Auto) Coronavirus (PCR) SARS-CoV-2 IgG Ab Crossmatch 06/25/20 06/25/20 06/25/20 05:44 11:35 17:33 WBC RBC Hgb Hct MCV MCH MCHC RDW Lymph % (Auto) Lymph # (Auto) [place] # (Auto) Baso # (Auto) Seg Neutrophils % Seg Neuts % (Manual) Lymphocytes % (Manual) Nucleated RBC % Seg Neutrophils # Seg Neutrophils # Man Lymphocytes # (Manual) Monocytes # (Manual) Eosinophils # (Manual) PT INR APTT D-Dimer Heparin Anti-Xa Level ABG pH POC ABG pCO2 POC ABG pO2 ABG pO2 ABG HCO3 ABG O2 Saturation ABG Base Excess ABG Hemoglobin ABG Oxyhemoglobin ABG Sodium ABG Potassium ABG Chloride ABG Glucose Oxyhemoglobin Carboxyhemoglobin Sodium Potassium Chloride Carbon Dioxide BUN Creatinine Glucose POC Glucose 170 H 175 H 229 H Lactic Acid Calcium Magnesium Ferritin Total Bilirubin Direct Bilirubin AST ALT Alkaline Phosphatase Lactate Dehydrogenase C-Reactive Protein Total Protein Albumin Triglycerides Lipase Arterial Blood Glucose Arterial Blood Ionized Calcium Urine WBC (Auto) Coronavirus (PCR) SARS-CoV-2 IgG Ab Crossmatch 06/25/20 06/26/20 06/26/20 23:55 02:17 02:17 WBC RBC Hgb 10.0 L Hct 30.4 L MCV MCH MCHC RDW Lymph % (Auto) Lymph # (Auto) [place] # (Auto) Baso # (Auto) Seg Neutrophils % Seg Neuts % (Manual) Lymphocytes % (Manual) Nucleated RBC % Seg Neutrophils # Seg Neutrophils # Man Lymphocytes # (Manual) Monocytes # (Manual) Eosinophils # (Manual) PT INR APTT D-Dimer Heparin Anti-Xa Level ABG pH POC ABG pCO2 POC ABG pO2 ABG pO2 ABG HCO3 ABG O2 Saturation ABG Base Excess ABG Hemoglobin ABG Oxyhemoglobin ABG Sodium ABG Potassium ABG Chloride ABG Glucose Oxyhemoglobin Carboxyhemoglobin Sodium 136 L Potassium Chloride 90.1 L Carbon Dioxide 39 H BUN Creatinine 0.2 L Glucose 232 H POC Glucose 192 H Lactic Acid Calcium Magnesium Ferritin Total Bilirubin Direct Bilirubin AST ALT Alkaline Phosphatase Lactate Dehydrogenase C-Reactive Protein Total Protein 6.1 L Albumin 2.9 L Triglycerides Lipase Arterial Blood Glucose Arterial Blood Ionized Calcium Urine WBC (Auto) Coronavirus (PCR) SARS-CoV-2 IgG Ab Crossmatch 06/26/20 06/26/20 06/26/20 04:15 04:49 05:28 WBC RBC Hgb Hct MCV MCH MCHC RDW Lymph % (Auto) Lymph # (Auto) [place] # (Auto) Baso # (Auto) Seg Neutrophils % Seg Neuts % (Manual) Lymphocytes % (Manual) Nucleated RBC % Seg Neutrophils # Seg Neutrophils # Man Lymphocytes # (Manual) Monocytes # (Manual) Eosinophils # (Manual) PT INR APTT D-Dimer Heparin Anti-Xa Level ABG pH 7.453 H POC ABG pCO2 59.6 H POC ABG pO2 ABG pO2 ABG HCO3 ABG O2 Saturation ABG Base Excess ABG Hemoglobin 10.0 L ABG Oxyhemoglobin ABG Sodium 134.2 L ABG Potassium 3.3 L ABG Chloride 92.0 L ABG Glucose 305 H Oxyhemoglobin Carboxyhemoglobin Sodium Potassium Chloride Carbon Dioxide BUN Creatinine Glucose POC Glucose 234 H Lactic Acid Calcium Magnesium Ferritin Total Bilirubin Direct Bilirubin AST ALT Alkaline Phosphatase Lactate Dehydrogenase C-Reactive Protein Total Protein Albumin Triglycerides 203 H Lipase Arterial Blood Glucose 305 H Arterial Blood Ionized Calcium Urine WBC (Auto) Coronavirus (PCR) SARS-CoV-2 IgG Ab Crossmatch 06/26/20 06/26/20 06/26/20 11:58 17:58 21:32 WBC RBC Hgb Hct MCV MCH MCHC RDW Lymph % (Auto) Lymph # (Auto) [place] # (Auto) Baso # (Auto) Seg Neutrophils % Seg Neuts % (Manual) Lymphocytes % (Manual) Nucleated RBC % Seg Neutrophils # Seg Neutrophils # Man Lymphocytes # (Manual) Monocytes # (Manual) Eosinophils # (Manual) PT INR APTT D-Dimer Heparin Anti-Xa Level ABG pH POC ABG pCO2 POC ABG pO2 ABG pO2 ABG HCO3 ABG O2 Saturation ABG Base Excess ABG Hemoglobin ABG Oxyhemoglobin ABG Sodium ABG Potassium ABG Chloride ABG Glucose Oxyhemoglobin Carboxyhemoglobin Sodium Potassium Chloride Carbon Dioxide BUN Creatinine Glucose POC Glucose 198 H 193 H 191 H Lactic Acid Calcium Magnesium Ferritin Total Bilirubin Direct Bilirubin AST ALT Alkaline Phosphatase Lactate Dehydrogenase C-Reactive Protein Total Protein Albumin Triglycerides Lipase Arterial Blood Glucose Arterial Blood Ionized Calcium Urine WBC (Auto) Coronavirus (PCR) SARS-CoV-2 IgG Ab Crossmatch 06/26/20 06/27/20 06/27/20 23:40 04:35 05:32 WBC RBC Hgb Hct MCV MCH MCHC RDW Lymph % (Auto) Lymph # (Auto) [place] # (Auto) Baso # (Auto) Seg Neutrophils % Seg Neuts % (Manual) Lymphocytes % (Manual) Nucleated RBC % Seg Neutrophils # Seg Neutrophils # Man Lymphocytes # (Manual) Monocytes # (Manual) Eosinophils # (Manual) PT INR APTT D-Dimer Heparin Anti-Xa Level ABG pH 7.464 H POC ABG pCO2 60.8 H POC ABG pO2 ABG pO2 ABG HCO3 ABG O2 Saturation ABG Base Excess ABG Hemoglobin 10.1 L ABG Oxyhemoglobin ABG Sodium ABG Potassium 2.9 L ABG Chloride 92.0 L ABG Glucose 298 H Oxyhemoglobin Carboxyhemoglobin Sodium Potassium Chloride Carbon Dioxide BUN Creatinine Glucose POC Glucose 241 H 211 H Lactic Acid Calcium Magnesium Ferritin Total Bilirubin Direct Bilirubin AST ALT Alkaline Phosphatase Lactate Dehydrogenase C-Reactive Protein Total Protein Albumin Triglycerides Lipase Arterial Blood Glucose 298 H Arterial Blood Ionized Calcium Urine WBC (Auto) Coronavirus (PCR) SARS-CoV-2 IgG Ab Crossmatch 06/27/20 06/27/20 06/27/20 12:37 18:08 20:52 WBC RBC Hgb Hct MCV MCH MCHC RDW Lymph % (Auto) Lymph # (Auto) [place] # (Auto) Baso # (Auto) Seg Neutrophils % Seg Neuts % (Manual) Lymphocytes % (Manual) Nucleated RBC % Seg Neutrophils # Seg Neutrophils # Man Lymphocytes # (Manual) Monocytes # (Manual) Eosinophils # (Manual) PT INR APTT D-Dimer Heparin Anti-Xa Level ABG pH POC ABG pCO2 POC ABG pO2 ABG pO2 ABG HCO3 ABG O2 Saturation ABG Base Excess ABG Hemoglobin ABG Oxyhemoglobin ABG Sodium ABG Potassium ABG Chloride ABG Glucose Oxyhemoglobin Carboxyhemoglobin Sodium Potassium Chloride Carbon Dioxide BUN Creatinine Glucose POC Glucose 182 H 197 H 195 H Lactic Acid Calcium Magnesium Ferritin Total Bilirubin Direct Bilirubin AST ALT Alkaline Phosphatase Lactate Dehydrogenase C-Reactive Protein Total Protein Albumin Triglycerides Lipase Arterial Blood Glucose Arterial Blood Ionized Calcium Urine WBC (Auto) Coronavirus (PCR) SARS-CoV-2 IgG Ab Crossmatch 06/27/20 06/28/20 06/28/20 Unknown 04:17 04:50 WBC RBC Hgb Hct MCV MCH MCHC RDW Lymph % (Auto) Lymph # (Auto) [place] # (Auto) Baso # (Auto) Seg Neutrophils % Seg Neuts % (Manual) Lymphocytes % (Manual) Nucleated RBC % Seg Neutrophils # Seg Neutrophils # Man Lymphocytes # (Manual) Monocytes # (Manual) Eosinophils # (Manual) PT INR APTT D-Dimer Heparin Anti-Xa Level ABG pH POC ABG pCO2 58.6 H POC ABG pO2 60.1 L ABG pO2 ABG HCO3 ABG O2 Saturation ABG Base Excess ABG Hemoglobin 10.0 L ABG Oxyhemoglobin ABG Sodium 125.3 L ABG Potassium ABG Chloride 93.0 L ABG Glucose 308 H Oxyhemoglobin Carboxyhemoglobin Sodium Potassium 2.9 L* Chloride 93.4 L Carbon Dioxide 42 H* BUN Creatinine 0.3 L Glucose 211 H POC Glucose 252 H Lactic Acid Calcium 8.1 L Magnesium Ferritin Total Bilirubin Direct Bilirubin AST ALT Alkaline Phosphatase Lactate Dehydrogenase C-Reactive Protein Total Protein 5.1 L Albumin 2.4 L Triglycerides Lipase Arterial Blood Glucose 308 H Arterial Blood Ionized Calcium Urine WBC (Auto) Coronavirus (PCR) SARS-CoV-2 IgG Ab Crossmatch 06/28/20 06/28/20 06/28/20 06:35 06:35 11:36 WBC 18.9 H RBC 2.85 L Hgb 9.5 L Hct 28.4 L MCV 100 H MCH 33 H MCHC RDW 17.3 H Lymph % (Auto) Lymph # (Auto) [place] # (Auto) Baso # (Auto) Seg Neutrophils % 88.6 H Seg Neuts % (Manual) 95.0 H Lymphocytes % (Manual) 1.0 L Nucleated RBC % Seg Neutrophils # 15.9 H Seg Neutrophils # Man 18.0 H Lymphocytes # (Manual) 0.2 L Monocytes # (Manual) Eosinophils # (Manual) PT INR APTT D-Dimer Heparin Anti-Xa Level ABG pH POC ABG pCO2 POC ABG pO2 ABG pO2 ABG HCO3 ABG O2 Saturation ABG Base Excess ABG Hemoglobin ABG Oxyhemoglobin ABG Sodium ABG Potassium ABG Chloride ABG Glucose Oxyhemoglobin Carboxyhemoglobin Sodium Potassium Chloride 94.2 L Carbon Dioxide 38 H BUN Creatinine 0.3 L Glucose 228 H POC Glucose 243 H Lactic Acid Calcium Magnesium Ferritin Total Bilirubin Direct Bilirubin AST ALT Alkaline Phosphatase Lactate Dehydrogenase C-Reactive Protein Total Protein 6.1 L Albumin 2.7 L Triglycerides Lipase Arterial Blood Glucose Arterial Blood Ionized Calcium Urine WBC (Auto) Coronavirus (PCR) SARS-CoV-2 IgG Ab Crossmatch 06/28/20 06/28/20 06/29/20 16:53 21:10 00:06 WBC RBC Hgb Hct MCV MCH MCHC RDW Lymph % (Auto) Lymph # (Auto) [place] # (Auto) Baso # (Auto) Seg Neutrophils % Seg Neuts % (Manual) Lymphocytes % (Manual) Nucleated RBC % Seg Neutrophils # Seg Neutrophils # Man Lymphocytes # (Manual) Monocytes # (Manual) Eosinophils # (Manual) PT INR APTT D-Dimer Heparin Anti-Xa Level ABG pH POC ABG pCO2 POC ABG pO2 ABG pO2 ABG HCO3 ABG O2 Saturation ABG Base Excess ABG Hemoglobin ABG Oxyhemoglobin ABG Sodium ABG Potassium ABG Chloride ABG Glucose Oxyhemoglobin Carboxyhemoglobin Sodium Potassium Chloride Carbon Dioxide BUN Creatinine Glucose POC Glucose 211 H 195 H 200 H Lactic Acid Calcium Magnesium Ferritin Total Bilirubin Direct Bilirubin AST ALT Alkaline Phosphatase Lactate Dehydrogenase C-Reactive Protein Total Protein Albumin Triglycerides Lipase Arterial Blood Glucose Arterial Blood Ionized Calcium Urine WBC (Auto) Coronavirus (PCR) SARS-CoV-2 IgG Ab Crossmatch 06/29/20 06/29/20 06/29/20 03:11 04:00 04:00 WBC 18.8 H RBC 2.82 L Hgb 10.1 L Hct 28.5 L MCV 101 H MCH 36 H MCHC 36 H RDW 17.5 H Lymph % (Auto) 10.7 L Lymph # (Auto) [place] # (Auto) 1.0 H Baso # (Auto) 0.3 H Seg Neutrophils % 82.2 H Seg Neuts % (Manual) Lymphocytes % (Manual) Nucleated RBC % Seg Neutrophils # 15.5 H Seg Neutrophils # Man Lymphocytes # (Manual) Monocytes # (Manual) Eosinophils # (Manual) PT INR APTT D-Dimer Heparin Anti-Xa Level ABG pH POC ABG pCO2 57.5 H POC ABG pO2 69.1 L ABG pO2 ABG HCO3 ABG O2 Saturation ABG Base Excess ABG Hemoglobin 10.2 L ABG Oxyhemoglobin 92.3 L ABG Sodium 130.7 L ABG Potassium 3.2 L ABG Chloride 93.0 L ABG Glucose 228 H Oxyhemoglobin Carboxyhemoglobin Sodium 134 L Potassium 3.3 L Chloride 89.5 L Carbon Dioxide 40 H BUN Creatinine 0.2 L Glucose 190 H POC Glucose Lactic Acid Calcium Magnesium Ferritin Total Bilirubin Direct Bilirubin AST < 5 L ALT < 5 L Alkaline Phosphatase Lactate Dehydrogenase C-Reactive Protein Total Protein 5.9 L Albumin 2.2 L Triglycerides Lipase Arterial Blood Glucose 228 H Arterial Blood Ionized Calcium Urine WBC (Auto) Coronavirus (PCR) SARS-CoV-2 IgG Ab Crossmatch 06/29/20 06/29/20 06/29/20 05:00 05:23 09:36 WBC RBC Hgb Hct MCV MCH MCHC RDW Lymph % (Auto) Lymph # (Auto) [place] # (Auto) Baso # (Auto) Seg Neutrophils % Seg Neuts % (Manual) Lymphocytes % (Manual) Nucleated RBC % Seg Neutrophils # Seg Neutrophils # Man Lymphocytes # (Manual) Monocytes # (Manual) Eosinophils # (Manual) PT INR APTT D-Dimer Heparin Anti-Xa Level ABG pH POC ABG pCO2 POC ABG pO2 ABG pO2 ABG HCO3 ABG O2 Saturation ABG Base Excess ABG Hemoglobin ABG Oxyhemoglobin ABG Sodium ABG Potassium ABG Chloride ABG Glucose Oxyhemoglobin Carboxyhemoglobin Sodium Potassium Chloride Carbon Dioxide BUN Creatinine Glucose POC Glucose 165 H Lactic Acid Calcium Magnesium Ferritin Total Bilirubin Direct Bilirubin AST ALT Alkaline Phosphatase Lactate Dehydrogenase C-Reactive Protein Total Protein Albumin Triglycerides 1544 H 1799 H Lipase Arterial Blood Glucose Arterial Blood Ionized Calcium Urine WBC (Auto) Coronavirus (PCR) SARS-CoV-2 IgG Ab Crossmatch 06/29/20 06/29/20 06/29/20 09:36 12:02 18:00 WBC RBC Hgb Hct MCV MCH MCHC RDW Lymph % (Auto) Lymph # (Auto) [place] # (Auto) Baso # (Auto) Seg Neutrophils % Seg Neuts % (Manual) Lymphocytes % (Manual) Nucleated RBC % Seg Neutrophils # Seg Neutrophils # Man Lymphocytes # (Manual) Monocytes # (Manual) Eosinophils # (Manual) PT INR APTT D-Dimer Heparin Anti-Xa Level ABG pH POC ABG pCO2 POC ABG pO2 ABG pO2 ABG HCO3 ABG O2 Saturation ABG Base Excess ABG Hemoglobin ABG Oxyhemoglobin ABG Sodium ABG Potassium ABG Chloride ABG Glucose Oxyhemoglobin Carboxyhemoglobin Sodium Potassium Chloride Carbon Dioxide BUN Creatinine Glucose POC Glucose 197 H 187 H Lactic Acid Calcium Magnesium Ferritin Total Bilirubin Direct Bilirubin AST ALT Alkaline Phosphatase Lactate Dehydrogenase C-Reactive Protein Total Protein Albumin Triglycerides Lipase 86 H Arterial Blood Glucose Arterial Blood Ionized Calcium Urine WBC (Auto) Coronavirus (PCR) SARS-CoV-2 IgG Ab Crossmatch 06/29/20 06/30/20 06/30/20 23:33 03:46 05:50 WBC RBC Hgb Hct MCV MCH MCHC RDW Lymph % (Auto) Lymph # (Auto) [place] # (Auto) Baso # (Auto) Seg Neutrophils % Seg Neuts % (Manual) Lymphocytes % (Manual) Nucleated RBC % Seg Neutrophils # Seg Neutrophils # Man Lymphocytes # (Manual) Monocytes # (Manual) Eosinophils # (Manual) PT INR APTT D-Dimer Heparin Anti-Xa Level ABG pH 7.466 H POC ABG pCO2 57.3 H POC ABG pO2 66.1 L ABG pO2 ABG HCO3 ABG O2 Saturation ABG Base Excess ABG Hemoglobin 10.2 L ABG Oxyhemoglobin 92.3 L ABG Sodium 134.4 L ABG Potassium 3.2 L ABG Chloride 94.0 L ABG Glucose 178 H Oxyhemoglobin Carboxyhemoglobin Sodium Potassium Chloride Carbon Dioxide BUN Creatinine Glucose POC Glucose 170 H 170 H Lactic Acid Calcium Magnesium Ferritin Total Bilirubin Direct Bilirubin AST ALT Alkaline Phosphatase Lactate Dehydrogenase C-Reactive Protein Total Protein Albumin Triglycerides Lipase Arterial Blood Glucose 178 H Arterial Blood Ionized Calcium Urine WBC (Auto) Coronavirus (PCR) SARS-CoV-2 IgG Ab Crossmatch 06/30/20 06/30/20 06/30/20 07:00 07:00 12:04 WBC 15.6 H RBC 2.91 L Hgb 9.8 L Hct 29.7 L MCV 102 H MCH 34 H MCHC RDW 17.8 H Lymph % (Auto) Lymph # (Auto) [place] # (Auto) Baso # (Auto) Seg Neutrophils % Seg Neuts % (Manual) Lymphocytes % (Manual) 5.0 L Nucleated RBC % Seg Neutrophils # Seg Neutrophils # Man 14.8 H Lymphocytes # (Manual) 0.8 L Monocytes # (Manual) Eosinophils # (Manual) PT INR APTT D-Dimer Heparin Anti-Xa Level ABG pH POC ABG pCO2 POC ABG pO2 ABG pO2 ABG HCO3 ABG O2 Saturation ABG Base Excess ABG Hemoglobin ABG Oxyhemoglobin ABG Sodium ABG Potassium ABG Chloride ABG Glucose Oxyhemoglobin Carboxyhemoglobin Sodium Potassium Chloride 93.3 L Carbon Dioxide 43 H* BUN Creatinine 0.3 L Glucose 260 H POC Glucose 245 H Lactic Acid Calcium Magnesium Ferritin Total Bilirubin Direct Bilirubin AST ALT Alkaline Phosphatase Lactate Dehydrogenase C-Reactive Protein Total Protein Albumin 2.8 L Triglycerides 452 H Lipase Arterial Blood Glucose Arterial Blood Ionized Calcium Urine WBC (Auto) Coronavirus (PCR) SARS-CoV-2 IgG Ab Crossmatch 06/30/20 07/01/20 07/01/20 17:32 00:02 05:02 WBC RBC Hgb Hct MCV MCH MCHC RDW Lymph % (Auto) Lymph # (Auto) [place] # (Auto) Baso # (Auto) Seg Neutrophils % Seg Neuts % (Manual) Lymphocytes % (Manual) Nucleated RBC % Seg Neutrophils # Seg Neutrophils # Man Lymphocytes # (Manual) Monocytes # (Manual) Eosinophils # (Manual) PT INR APTT D-Dimer Heparin Anti-Xa Level ABG pH POC ABG pCO2 58.1 H POC ABG pO2 ABG pO2 ABG HCO3 ABG O2 Saturation ABG Base Excess ABG Hemoglobin 11.2 L ABG Oxyhemoglobin ABG Sodium 132.7 L ABG Potassium ABG Chloride 92.0 L ABG Glucose 238 H Oxyhemoglobin Carboxyhemoglobin Sodium Potassium Chloride Carbon Dioxide BUN Creatinine Glucose POC Glucose 209 H 208 H Lactic Acid Calcium Magnesium Ferritin Total Bilirubin Direct Bilirubin AST ALT Alkaline Phosphatase Lactate Dehydrogenase C-Reactive Protein Total Protein Albumin Triglycerides Lipase Arterial Blood Glucose 238 H Arterial Blood Ionized Calcium Urine WBC (Auto) Coronavirus (PCR) SARS-CoV-2 IgG Ab Crossmatch 07/01/20 07/01/20 07/01/20 06:16 06:41 06:41 WBC 18.1 H RBC 2.33 L Hgb 7.1 L Hct 21.3 L D MCV MCH MCHC RDW Lymph % (Auto) Lymph # (Auto) [place] # (Auto) Baso # (Auto) Seg Neutrophils % Seg Neuts % (Manual) 82.0 H Lymphocytes % (Manual) 7.0 L Nucleated RBC % 1.0 H Seg Neutrophils # Seg Neutrophils # Man 14.8 H Lymphocytes # (Manual) Monocytes # (Manual) 1.1 H Eosinophils # (Manual) 0.5 H PT INR APTT D-Dimer Heparin Anti-Xa Level < 0.10 L ABG pH POC ABG pCO2 POC ABG pO2 ABG pO2 ABG HCO3 ABG O2 Saturation ABG Base Excess ABG Hemoglobin ABG Oxyhemoglobin ABG Sodium ABG Potassium ABG Chloride ABG Glucose Oxyhemoglobin Carboxyhemoglobin Sodium Potassium Chloride Carbon Dioxide BUN Creatinine Glucose POC Glucose 180 H Lactic Acid Calcium Magnesium Ferritin Total Bilirubin Direct Bilirubin AST ALT Alkaline Phosphatase Lactate Dehydrogenase C-Reactive Protein Total Protein Albumin Triglycerides Lipase Arterial Blood Glucose Arterial Blood Ionized Calcium Urine WBC (Auto) Coronavirus (PCR) SARS-CoV-2 IgG Ab Crossmatch 07/01/20 07/01/20 07/01/20 08:11 12:04 16:16 WBC RBC Hgb Hct MCV MCH MCHC RDW Lymph % (Auto) Lymph # (Auto) [place] # (Auto) Baso # (Auto) Seg Neutrophils % Seg Neuts % (Manual) Lymphocytes % (Manual) Nucleated RBC % Seg Neutrophils # Seg Neutrophils # Man Lymphocytes # (Manual) Monocytes # (Manual) Eosinophils # (Manual) PT INR APTT D-Dimer Heparin Anti-Xa Level 1.02 H ABG pH POC ABG pCO2 POC ABG pO2 ABG pO2 ABG HCO3 ABG O2 Saturation ABG Base Excess ABG Hemoglobin ABG Oxyhemoglobin ABG Sodium ABG Potassium ABG Chloride ABG Glucose Oxyhemoglobin Carboxyhemoglobin Sodium 135 L Potassium 3.0 L Chloride 93.1 L Carbon Dioxide 40 H BUN Creatinine 0.3 L Glucose 140 H POC Glucose 223 H Lactic Acid Calcium Magnesium Ferritin Total Bilirubin Direct Bilirubin AST ALT Alkaline Phosphatase Lactate Dehydrogenase C-Reactive Protein Total Protein Albumin Triglycerides Lipase Arterial Blood Glucose Arterial Blood Ionized Calcium Urine WBC (Auto) Coronavirus (PCR) SARS-CoV-2 IgG Ab Crossmatch 07/01/20 07/01/20 07/02/20 17:09 23:19 00:56 WBC RBC Hgb Hct MCV MCH MCHC RDW Lymph % (Auto) Lymph # (Auto) [place] # (Auto) Baso # (Auto) Seg Neutrophils % Seg Neuts % (Manual) Lymphocytes % (Manual) Nucleated RBC % Seg Neutrophils # Seg Neutrophils # Man Lymphocytes # (Manual) Monocytes # (Manual) Eosinophils # (Manual) PT INR APTT D-Dimer Heparin Anti-Xa Level 0.22 L ABG pH POC ABG pCO2 POC ABG pO2 ABG pO2 ABG HCO3 ABG O2 Saturation ABG Base Excess ABG Hemoglobin ABG Oxyhemoglobin ABG Sodium ABG Potassium ABG Chloride ABG Glucose Oxyhemoglobin Carboxyhemoglobin Sodium Potassium Chloride Carbon Dioxide BUN Creatinine Glucose POC Glucose 233 H 255 H Lactic Acid Calcium Magnesium Ferritin Total Bilirubin Direct Bilirubin AST ALT Alkaline Phosphatase Lactate Dehydrogenase C-Reactive Protein Total Protein Albumin Triglycerides Lipase Arterial Blood Glucose Arterial Blood Ionized Calcium Urine WBC (Auto) Coronavirus (PCR) SARS-CoV-2 IgG Ab Crossmatch 07/02/20 07/02/20 07/02/20 03:51 05:35 11:39 WBC RBC Hgb Hct MCV MCH MCHC RDW Lymph % (Auto) Lymph # (Auto) [place] # (Auto) Baso # (Auto) Seg Neutrophils % Seg Neuts % (Manual) Lymphocytes % (Manual) Nucleated RBC % Seg Neutrophils # Seg Neutrophils # Man Lymphocytes # (Manual) Monocytes # (Manual) Eosinophils # (Manual) PT INR APTT D-Dimer Heparin Anti-Xa Level ABG pH POC ABG pCO2 54.9 H POC ABG pO2 52.1 L ABG pO2 ABG HCO3 ABG O2 Saturation ABG Base Excess ABG Hemoglobin 11.9 L ABG Oxyhemoglobin 82.8 L ABG Sodium 130.2 L ABG Potassium ABG Chloride 92.0 L ABG Glucose 249 H Oxyhemoglobin Carboxyhemoglobin 1.9 H Sodium Potassium Chloride Carbon Dioxide BUN Creatinine Glucose POC Glucose 205 H 235 H Lactic Acid Calcium Magnesium Ferritin Total Bilirubin Direct Bilirubin AST ALT Alkaline Phosphatase Lactate Dehydrogenase C-Reactive Protein Total Protein Albumin Triglycerides Lipase Arterial Blood Glucose 249 H Arterial Blood Ionized Calcium Urine WBC (Auto) Coronavirus (PCR) SARS-CoV-2 IgG Ab Crossmatch 07/02/20 07/02/20 07/02/20 16:08 16:08 17:54 WBC 19.8 H RBC 3.28 L Hgb 10.7 L D Hct 32.7 L D MCV 100 H MCH 33 H MCHC RDW 17.2 H Lymph % (Auto) Lymph # (Auto) [place] # (Auto) Baso # (Auto) Seg Neutrophils % Seg Neuts % (Manual) Lymphocytes % (Manual) Nucleated RBC % Seg Neutrophils # Seg Neutrophils # Man Lymphocytes # (Manual) Monocytes # (Manual) Eosinophils # (Manual) PT INR APTT D-Dimer Heparin Anti-Xa Level ABG pH POC ABG pCO2 POC ABG pO2 ABG pO2 ABG HCO3 ABG O2 Saturation ABG Base Excess ABG Hemoglobin ABG Oxyhemoglobin ABG Sodium ABG Potassium ABG Chloride ABG Glucose Oxyhemoglobin Carboxyhemoglobin Sodium 136 L Potassium Chloride 92.4 L Carbon Dioxide 35 H BUN Creatinine 0.3 L Glucose 203 H POC Glucose 175 H Lactic Acid Calcium Magnesium Ferritin Total Bilirubin Direct Bilirubin AST ALT Alkaline Phosphatase Lactate Dehydrogenase C-Reactive Protein Total Protein Albumin Triglycerides Lipase Arterial Blood Glucose Arterial Blood Ionized Calcium Urine WBC (Auto) Coronavirus (PCR) SARS-CoV-2 IgG Ab Crossmatch 07/02/20 07/03/20 07/03/20 23:46 03:25 05:54 WBC RBC Hgb Hct MCV MCH MCHC RDW Lymph % (Auto) Lymph # (Auto) [place] # (Auto) Baso # (Auto) Seg Neutrophils % Seg Neuts % (Manual) Lymphocytes % (Manual) Nucleated RBC % Seg Neutrophils # Seg Neutrophils # Man Lymphocytes # (Manual) Monocytes # (Manual) Eosinophils # (Manual) PT INR APTT D-Dimer Heparin Anti-Xa Level ABG pH 7.468 H POC ABG pCO2 51.5 H POC ABG pO2 ABG pO2 ABG HCO3 ABG O2 Saturation ABG Base Excess ABG Hemoglobin ABG Oxyhemoglobin ABG Sodium 130.2 L ABG Potassium ABG Chloride 91.0 L ABG Glucose 210 H Oxyhemoglobin Carboxyhemoglobin 1.6 H Sodium Potassium Chloride Carbon Dioxide BUN Creatinine Glucose POC Glucose 173 H 125 H Lactic Acid Calcium Magnesium Ferritin Total Bilirubin Direct Bilirubin AST ALT Alkaline Phosphatase Lactate Dehydrogenase C-Reactive Protein Total Protein Albumin Triglycerides Lipase Arterial Blood Glucose 210 H Arterial Blood Ionized Calcium Urine WBC (Auto) Coronavirus (PCR) SARS-CoV-2 IgG Ab Crossmatch 07/03/20 07/03/20 07/03/20 11:43 12:20 12:20 WBC 16.5 H RBC 3.13 L Hgb 10.4 L Hct 31.8 L MCV 102 H MCH 33 H MCHC RDW 17.2 H Lymph % (Auto) Lymph # (Auto) [place] # (Auto) Baso # (Auto) Seg Neutrophils % Seg Neuts % (Manual) Lymphocytes % (Manual) Nucleated RBC % Seg Neutrophils # Seg Neutrophils # Man Lymphocytes # (Manual) Monocytes # (Manual) Eosinophils # (Manual) PT INR APTT D-Dimer Heparin Anti-Xa Level ABG pH POC ABG pCO2 POC ABG pO2 ABG pO2 ABG HCO3 ABG O2 Saturation ABG Base Excess ABG Hemoglobin ABG Oxyhemoglobin ABG Sodium ABG Potassium ABG Chloride ABG Glucose Oxyhemoglobin Carboxyhemoglobin Sodium 132 L Potassium Chloride 88.5 L Carbon Dioxide 37 H BUN Creatinine 0.3 L Glucose 230 H POC Glucose 223 H Lactic Acid Calcium Magnesium Ferritin Total Bilirubin Direct Bilirubin AST ALT Alkaline Phosphatase Lactate Dehydrogenase C-Reactive Protein Total Protein Albumin Triglycerides Lipase Arterial Blood Glucose Arterial Blood Ionized Calcium Urine WBC (Auto) Coronavirus (PCR) SARS-CoV-2 IgG Ab Crossmatch 07/03/20 07/03/20 07/04/20 17:24 21:41 00:54 WBC RBC Hgb Hct MCV MCH MCHC RDW Lymph % (Auto) Lymph # (Auto) [place] # (Auto) Baso # (Auto) Seg Neutrophils % Seg Neuts % (Manual) Lymphocytes % (Manual) Nucleated RBC % Seg Neutrophils # Seg Neutrophils # Man Lymphocytes # (Manual) Monocytes # (Manual) Eosinophils # (Manual) PT INR APTT D-Dimer Heparin Anti-Xa Level ABG pH POC ABG pCO2 POC ABG pO2 ABG pO2 ABG HCO3 ABG O2 Saturation ABG Base Excess ABG Hemoglobin ABG Oxyhemoglobin ABG Sodium ABG Potassium ABG Chloride ABG Glucose Oxyhemoglobin Carboxyhemoglobin Sodium Potassium Chloride Carbon Dioxide BUN Creatinine Glucose POC Glucose 163 H 220 H 195 H Lactic Acid Calcium Magnesium Ferritin Total Bilirubin Direct Bilirubin AST ALT Alkaline Phosphatase Lactate Dehydrogenase C-Reactive Protein Total Protein Albumin Triglycerides Lipase Arterial Blood Glucose Arterial Blood Ionized Calcium Urine WBC (Auto) Coronavirus (PCR) SARS-CoV-2 IgG Ab Crossmatch 07/04/20 07/04/20 07/04/20 03:25 04:00 04:00 WBC 14.9 H RBC 2.91 L Hgb 9.5 L Hct 29.2 L MCV 100 H MCH 33 H MCHC RDW 16.7 H Lymph % (Auto) 8.4 L Lymph # (Auto) [place] # (Auto) 1.1 H Baso # (Auto) Seg Neutrophils % 84.2 H Seg Neuts % (Manual) Lymphocytes % (Manual) Nucleated RBC % Seg Neutrophils # 12.6 H Seg Neutrophils # Man Lymphocytes # (Manual) Monocytes # (Manual) Eosinophils # (Manual) PT INR APTT D-Dimer Heparin Anti-Xa Level ABG pH 7.474 H POC ABG pCO2 POC ABG pO2 51.8 L ABG pO2 ABG HCO3 ABG O2 Saturation ABG Base Excess ABG Hemoglobin ABG Oxyhemoglobin ABG Sodium ABG Potassium ABG Chloride ABG Glucose Oxyhemoglobin Carboxyhemoglobin Sodium Potassium 3.4 L Chloride 92.1 L Carbon Dioxide 34 H BUN Creatinine 0.3 L Glucose 173 H POC Glucose Lactic Acid Calcium Magnesium Ferritin Total Bilirubin Direct Bilirubin AST ALT Alkaline Phosphatase Lactate Dehydrogenase C-Reactive Protein Total Protein Albumin Triglycerides Lipase Arterial Blood Glucose Arterial Blood Ionized Calcium Urine WBC (Auto) Coronavirus (PCR) SARS-CoV-2 IgG Ab Crossmatch 07/04/20 07/04/20 07/04/20 06:18 11:39 17:18 WBC RBC Hgb Hct MCV MCH MCHC RDW Lymph % (Auto) Lymph # (Auto) [place] # (Auto) Baso # (Auto) Seg Neutrophils % Seg Neuts % (Manual) Lymphocytes % (Manual) Nucleated RBC % Seg Neutrophils # Seg Neutrophils # Man Lymphocytes # (Manual) Monocytes # (Manual) Eosinophils # (Manual) PT INR APTT D-Dimer Heparin Anti-Xa Level ABG pH POC ABG pCO2 POC ABG pO2 ABG pO2 ABG HCO3 ABG O2 Saturation ABG Base Excess ABG Hemoglobin ABG Oxyhemoglobin ABG Sodium ABG Potassium ABG Chloride ABG Glucose Oxyhemoglobin Carboxyhemoglobin Sodium Potassium Chloride Carbon Dioxide BUN Creatinine Glucose POC Glucose 158 H 257 H 148 H Lactic Acid Calcium Magnesium Ferritin Total Bilirubin Direct Bilirubin AST ALT Alkaline Phosphatase Lactate Dehydrogenase C-Reactive Protein Total Protein Albumin Triglycerides Lipase Arterial Blood Glucose Arterial Blood Ionized Calcium Urine WBC (Auto) Coronavirus (PCR) SARS-CoV-2 IgG Ab Crossmatch 07/04/20 07/05/20 07/05/20 23:23 03:13 05:18 WBC 13.3 H RBC 2.90 L Hgb 9.8 L Hct 29.3 L MCV 101 H MCH 34 H MCHC RDW 17.0 H Lymph % (Auto) 11.1 L Lymph # (Auto) [place] # (Auto) Baso # (Auto) Seg Neutrophils % 82.3 H Seg Neuts % (Manual) Lymphocytes % (Manual) Nucleated RBC % Seg Neutrophils # 10.9 H Seg Neutrophils # Man Lymphocytes # (Manual) Monocytes # (Manual) Eosinophils # (Manual) PT INR APTT D-Dimer Heparin Anti-Xa Level ABG pH 7.48 H POC ABG pCO2 52.0 H POC ABG pO2 ABG pO2 ABG HCO3 ABG O2 Saturation ABG Base Excess ABG Hemoglobin 10.0 L ABG Oxyhemoglobin ABG Sodium 131.0 L ABG Potassium 3.3 L ABG Chloride 93.0 L ABG Glucose 177 H Oxyhemoglobin Carboxyhemoglobin Sodium Potassium Chloride Carbon Dioxide BUN Creatinine Glucose POC Glucose 227 H Lactic Acid Calcium Magnesium Ferritin Total Bilirubin Direct Bilirubin AST ALT Alkaline Phosphatase Lactate Dehydrogenase C-Reactive Protein Total Protein Albumin Triglycerides Lipase Arterial Blood Glucose 177 H Arterial Blood Ionized Calcium Urine WBC (Auto) Coronavirus (PCR) SARS-CoV-2 IgG Ab Crossmatch 07/05/20 07/05/20 07/05/20 05:18 05:25 05:57 WBC RBC Hgb Hct MCV MCH MCHC RDW Lymph % (Auto) Lymph # (Auto) [place] # (Auto) Baso # (Auto) Seg Neutrophils % Seg Neuts % (Manual) Lymphocytes % (Manual) Nucleated RBC % Seg Neutrophils # Seg Neutrophils # Man Lymphocytes # (Manual) Monocytes # (Manual) Eosinophils # (Manual) PT INR APTT D-Dimer Heparin Anti-Xa Level ABG pH 7.519 H POC ABG pCO2 POC ABG pO2 198.6 H ABG pO2 ABG HCO3 ABG O2 Saturation ABG Base Excess ABG Hemoglobin 10.3 L ABG Oxyhemoglobin 98.7 H ABG Sodium 133.6 L ABG Potassium 3.3 L ABG Chloride 93.0 L ABG Glucose 175 H Oxyhemoglobin Carboxyhemoglobin Sodium Potassium 3.4 L Chloride 92.5 L Carbon Dioxide 36 H BUN Creatinine 0.3 L Glucose 148 H POC Glucose 170 H Lactic Acid Calcium Magnesium Ferritin Total Bilirubin Direct Bilirubin AST ALT Alkaline Phosphatase Lactate Dehydrogenase C-Reactive Protein Total Protein Albumin Triglycerides Lipase Arterial Blood Glucose 175 H Arterial Blood Ionized Calcium Urine WBC (Auto) Coronavirus (PCR) SARS-CoV-2 IgG Ab Crossmatch 07/05/20 07/05/20 07/06/20 11:37 18:39 00:04 WBC RBC Hgb Hct MCV MCH MCHC RDW Lymph % (Auto) Lymph # (Auto) [place] # (Auto) Baso # (Auto) Seg Neutrophils % Seg Neuts % (Manual) Lymphocytes % (Manual) Nucleated RBC % Seg Neutrophils # Seg Neutrophils # Man Lymphocytes # (Manual) Monocytes # (Manual) Eosinophils # (Manual) PT INR APTT D-Dimer Heparin Anti-Xa Level ABG pH POC ABG pCO2 POC ABG pO2 ABG pO2 ABG HCO3 ABG O2 Saturation ABG Base Excess ABG Hemoglobin ABG Oxyhemoglobin ABG Sodium ABG Potassium ABG Chloride ABG Glucose Oxyhemoglobin Carboxyhemoglobin Sodium Potassium Chloride Carbon Dioxide BUN Creatinine Glucose POC Glucose 195 H 200 H 222 H Lactic Acid Calcium Magnesium Ferritin Total Bilirubin Direct Bilirubin AST ALT Alkaline Phosphatase Lactate Dehydrogenase C-Reactive Protein Total Protein Albumin Triglycerides Lipase Arterial Blood Glucose Arterial Blood Ionized Calcium Urine WBC (Auto) Coronavirus (PCR) SARS-CoV-2 IgG Ab Crossmatch 07/06/20 07/06/20 07/06/20 05:25 06:52 06:52 WBC 15.8 H RBC 3.17 L Hgb 10.4 L Hct 31.5 L MCV 99 H MCH 33 H MCHC RDW 17.0 H Lymph % (Auto) Lymph # (Auto) [place] # (Auto) Baso # (Auto) Seg Neutrophils % Seg Neuts % (Manual) Lymphocytes % (Manual) Nucleated RBC % Seg Neutrophils # Seg Neutrophils # Man Lymphocytes # (Manual) Monocytes # (Manual) Eosinophils # (Manual) PT INR APTT D-Dimer Heparin Anti-Xa Level ABG pH POC ABG pCO2 POC ABG pO2 ABG pO2 ABG HCO3 ABG O2 Saturation ABG Base Excess ABG Hemoglobin ABG Oxyhemoglobin ABG Sodium ABG Potassium ABG Chloride ABG Glucose Oxyhemoglobin Carboxyhemoglobin Sodium 135 L Potassium 3.4 L Chloride 91.9 L Carbon Dioxide 38 H BUN Creatinine 0.3 L Glucose 189 H POC Glucose 165 H Lactic Acid Calcium Magnesium Ferritin Total Bilirubin Direct Bilirubin AST ALT Alkaline Phosphatase Lactate Dehydrogenase C-Reactive Protein Total Protein Albumin Triglycerides Lipase Arterial Blood Glucose Arterial Blood Ionized Calcium Urine WBC (Auto) Coronavirus (PCR) SARS-CoV-2 IgG Ab Crossmatch 07/06/20 07/06/20 07/06/20 13:01 18:04 23:08 WBC RBC Hgb Hct MCV MCH MCHC RDW Lymph % (Auto) Lymph # (Auto) [place] # (Auto) Baso # (Auto) Seg Neutrophils % Seg Neuts % (Manual) Lymphocytes % (Manual) Nucleated RBC % Seg Neutrophils # Seg Neutrophils # Man Lymphocytes # (Manual) Monocytes # (Manual) Eosinophils # (Manual) PT INR APTT D-Dimer Heparin Anti-Xa Level ABG pH POC ABG pCO2 POC ABG pO2 ABG pO2 ABG HCO3 ABG O2 Saturation ABG Base Excess ABG Hemoglobin ABG Oxyhemoglobin ABG Sodium ABG Potassium ABG Chloride ABG Glucose Oxyhemoglobin Carboxyhemoglobin Sodium Potassium Chloride Carbon Dioxide BUN Creatinine Glucose POC Glucose 195 H 169 H 173 H Lactic Acid Calcium Magnesium Ferritin Total Bilirubin Direct Bilirubin AST ALT Alkaline Phosphatase Lactate Dehydrogenase C-Reactive Protein Total Protein Albumin Triglycerides Lipase Arterial Blood Glucose Arterial Blood Ionized Calcium Urine WBC (Auto) Coronavirus (PCR) SARS-CoV-2 IgG Ab Crossmatch 07/07/20 07/07/20 07/07/20 05:35 05:35 05:39 WBC 17.6 H RBC 3.16 L Hgb 10.4 L Hct 31.5 L MCV 100 H MCH 33 H MCHC RDW 16.7 H Lymph % (Auto) 11.1 L Lymph # (Auto) [place] # (Auto) 1.0 H Baso # (Auto) Seg Neutrophils % 83.0 H Seg Neuts % (Manual) Lymphocytes % (Manual) Nucleated RBC % Seg Neutrophils # 14.6 H Seg Neutrophils # Man Lymphocytes # (Manual) Monocytes # (Manual) Eosinophils # (Manual) PT INR APTT D-Dimer Heparin Anti-Xa Level ABG pH POC ABG pCO2 POC ABG pO2 ABG pO2 ABG HCO3 ABG O2 Saturation ABG Base Excess ABG Hemoglobin ABG Oxyhemoglobin ABG Sodium ABG Potassium ABG Chloride ABG Glucose Oxyhemoglobin Carboxyhemoglobin Sodium 135 L Potassium 3.4 L Chloride 94.3 L Carbon Dioxide 32 H BUN Creatinine 0.2 L Glucose 240 H POC Glucose 191 H Lactic Acid Calcium Magnesium Ferritin Total Bilirubin Direct Bilirubin AST ALT Alkaline Phosphatase Lactate Dehydrogenase C-Reactive Protein Total Protein Albumin Triglycerides Lipase Arterial Blood Glucose Arterial Blood Ionized Calcium Urine WBC (Auto) Coronavirus (PCR) SARS-CoV-2 IgG Ab Crossmatch 07/07/20 12:08 WBC RBC Hgb Hct MCV MCH MCHC RDW Lymph % (Auto) Lymph # (Auto) [place] # (Auto) Baso # (Auto) Seg Neutrophils % Seg Neuts % (Manual) Lymphocytes % (Manual) Nucleated RBC % Seg Neutrophils # Seg Neutrophils # Man Lymphocytes # (Manual) Monocytes # (Manual) Eosinophils # (Manual) PT INR APTT D-Dimer Heparin Anti-Xa Level ABG pH POC ABG pCO2 POC ABG pO2 ABG pO2 ABG HCO3 ABG O2 Saturation ABG Base Excess ABG Hemoglobin ABG Oxyhemoglobin ABG Sodium ABG Potassium ABG Chloride ABG Glucose Oxyhemoglobin Carboxyhemoglobin Sodium Potassium Chloride Carbon Dioxide BUN Creatinine Glucose POC Glucose 248 H Lactic Acid Calcium Magnesium Ferritin Total Bilirubin Direct Bilirubin AST ALT Alkaline Phosphatase Lactate Dehydrogenase C-Reactive Protein Total Protein Albumin Triglycerides Lipase Arterial Blood Glucose Arterial Blood Ionized Calcium Urine WBC (Auto) Coronavirus (PCR) SARS-CoV-2 IgG Ab Crossmatch Chest x-ray: image reviewed Allied health notes reviewed: RT
[2020-07-08] MEDS: LORazepam 2 MG/ML VIAL IV PRN ×2 (00:03→04:45)
[2020-07-08] MEDS: ENOXAPARIN 80 MG/0.8 ML INJ SUB-Q SCH ×3 (00:03→21:47)
[2020-07-08] MEDS: ENOXAPARIN 30 MG/0.3 ML INJ SUB-Q SCH ×3 (00:04→21:47)
[2020-07-08] MEDS: INSULIN LISPRO 100 UNIT/ML VIAL 3 mL SUB-Q SCH ×4 (01:13→18:18)
[2020-07-08] MEDS: fentaNYL DRIP Premix 2,000 MCG/100 ML BAG IV SCH ×5 (03:18→23:34)
[2020-07-08] MEDS: NORepinephrine/NS 4 MG-250 ML 4 MG/250 ML BAG IV SCH ×2 (03:20→17:15)
[2020-07-08 04:32] LABS: ABG Base Excess 8.7 mmol/L (-2.0-3.0); ABG HCO3 34.3 mmol/L (20.0-26.0); ABG Methemoglobin 0.5 % (0.0-1.5); ABG Oxygen Saturation 96.5 % (95.0-99.0); ABG PCO2 53.1 mm Hg; ABG PH 7.428 pH Units (7.350-7.450); ABG PO2 75.3 mm Hg (80.0-90.0)
[2020-07-08 05:23] LABS: Hematocrit 28.6 % (35.5-45.6); Hemoglobin 9.2 gm/dl (11.8-15.2); Mean Corpuscular HGB Conc 32 % (32-34); Mean Corpuscular Volume 100 fl (84-94); Platelet Count 250 K/mm3 (140-440); Red Blood Count 2.86 M/mm3 (3.65-5.03); Red Cell Distribution Width 16.7 % (13.2-15.2)
[2020-07-08 05:39] LABS: Blood Urea Nitrogen 16 mg/dL (9-20); Calcium 7.9 mg/dL (8.4-10.2); Hemolysis Index 4
[2020-07-08 05:45] LABS: BUN/Creatinine Ratio 80
[2020-07-08 06:10] LABS: Platelet Estimate Consistent w Auto; RBC Morphology Normal; Total Cells Counted 100
[2020-07-08] MEDS: methylPREDNISolone Sod Succinate 40 MG/1 ML INJ IV SCH ×2 (06:14→18:18)
[2020-07-08] MEDS: dexmedeTOMIDine 1,000 MCG in SODIUM CHLORIDE 0.9% 250ML 250 ML IV SCH ×2 (06:20→15:22)
[2020-07-08] MEDS: ALPRAZolam 0.25 MG TAB PO PRN (06:24)
[2020-07-08] MEDS: ENOXAPARIN 120 MG/0.8 ML INJ SUB-Q SCH (07:42)
[2020-07-08] MEDS: QUEtiapine 100 MG TAB PO SCH ×3 (08:26→19:30)
[2020-07-08] MEDS: MIDODRINE 5 MG TAB PO SCH ×3 (08:26→16:26)
[2020-07-08] MEDS: QUEtiapine 200 MG TAB PO SCH ×3 (08:28→19:30)
--- NOTE | 2020-07-08 08:45 | Progress Note ---
Assessment and Plan Assessment and plan: - Acute hypoxemic respiratory failure; Patient intubated and on vent support weaning protocol - need tach placement --Severe COVID-19 bilateral pneumonia Coronavirus protocol: IV steroid therapy, completed remdesivir, isolation precautions, contact precautions, prone positioning while in bed, pulmonary toilet. ID following SARS CoV-2 IgG positive patient is NOT a candidate for COVID convalescent plasma Covid test came negative on 06/30/20 --Severe sepsis/septic shock, due to COVID 19 PNA cont pressors as needed -- Acute kidney injury (SEN) , likely vasomotor nephropathy Resolved, IV fluids, avoid nephrotoxins --Acute on chronic anemia Guaiac test positive GI evaluation PPIs Continue to monitor -- Elevated liver function tests Suspected secondary to alcoholic liver disease. Supportive care, alcohol cessation, patient counseled. --Colonic pseudoobstruction likely from acute on chronic illness GI evaluation -recommend stool softeners Serial abdominal x-rays Monitor electrolytes and replete --History of alcohol dependence, status post CIWA protocol along with thiamine folic acid and multivitamin --right pneumothorax, s/p right chest tube placed on 06/21/20 Patient will need chest tube until patient is extubated -- DVT prophylaxis On therapeutic Lovenox The high probability of a clinically significant, sudden or life threatening deterioration of the [respiratory] system(s) required my full and direct attention, intervention and personal management. The aggregate critical care time was [31] minutes. This time is in addition to time spent performing reported procedures but includes the following: [x] Data Review and interpretation [x] Patient assessment and monitoring of vital signs [x] Documentation [x] Medication orders and management Brief History: 50 YO Male with Obesity, ETOH Dependence presents to ED for evaluation for shortness of breath, generalized weakness, fatigue, malaise, body aches, decreased exercise tolerance over the past 5 days. EMS was notified and upon arrival the patient was found to be in distress with a pulse oximetry of 76% on room air as well as fever to 103 F. In the ER chest x-ray and was found to have bilateral pneumonia. Patient admitted to medical floor and initiated on pneumonia protocol as well as COVID-19 protocol. Patient reports being diagnosed with coronavirus 2 days ago before admission. 05/10- 05/17: follow inflammatory markers, consulted ID/pulmonary. patient on high flow O2 05/18/20; patient feels slightly better still hypoxic, requiring continuous high flow oxygen and BiPAP Respiratory team trying to wean 05/19/20; patient is severely hypoxemic requiring continuous BiPAP today, complains of generalized weakness Trying to wean off high flow oxygen, patient is in isolation 05/20/2020; patient remains on high flow oxygen/BiPAP/100% nonrebreather. Still is hypoxemic Has sinus tachycardia patient in mild distress Wean off high flow oxygen as tolerated, pulmonary critical following 05/21/20; patient is critically ill, on continuous BiPAP remains hypoxemic in mild distress. Patient has severe Covid Pneumonia with persistent hypoxemia and poor prognosis. 05/22/2020: Patient was intubated last night because of persistent hypoxemia. 05/23-06/15: Remains on ventilatory support, unable to wean off from the vent. 06/16/2020. Patient currently on mechanical ventilation with AC mode rate 30, tidal volume 500, FiO2 70% and PEEP of 16. Continue anticoagulation with Lovenox 110 milligrams subcu every 12 hours. Wean sedation of fentanyl/Versed as needed. Currently with IV steroids of Solu-Medrol 40 mg IV every 12 hours. Patient will likely need tracheostomy per pulmonary recommendations. Continue pressors to maintain MAP > 65. 06/17/2020. Patient currently on mechanical ventilation with AC mode rate 30, tidal volume 500, FiO2 65% and PEEP of 16. Continue anticoagulation with Lovenox 110 milligrams subcu every 12 hours. Wean sedation of fentanyl/Versed as needed. Currently with IV steroids of Solu-Medrol 40 mg IV every 12 hours. Patient will likely need tracheostomy per pulmonary recommendations. 06/18/2020. Patient currently on mechanical ventilation with AC mode rate 30, tidal volume 500, FiO2 70% and PEEP of 16. Continue Lovenox for anticoagulation and fentanyl/Versed for sedation. Wean steroids per pulmonary. CIWA protocol initiated for history of EtOH dependence 06/19/2020. Patient currently on mechanical ventilation with AC mode rate 30, tidal volume 500, FiO2 60% and PEEP of 16. Wean FiO2 as tolerated per protocol. Continue Lovenox for anticoagulation and fentanyl/Versed for sedation. Wean steroids per pulmonary. CIWA protocol initiated for history of EtOH dependence 06/20/2020. Patient currently on mechanical ventilation with AC mode rate 30, tidal volume 500, FiO2 60% and PEEP of 16. Wean FiO2 as tolerated, SBT per protocol. Continue Lovenox for anticoagulation and fentanyl/Versed for sedation. Wean steroids per pulmonary. Continue pressors to maintain MAP > 65 mmHg. Patient remains on ETT. Consider tracheostomy placement once oxygenation is better per pulmonary. CIWA protocol initiated for history of EtOH dependence. 06/21/2020. Patient with a small apical pneumothorax discovered yesterday. General surgery consulted and consider placing chest tube. Follow-up serial chest x-ray patient currently on mechanical ventilation with AC mode rate 30, tidal volume 500, FiO2 60% and PEEP of 16. Wean FiO2 as tolerated, SBT per protocol. Continue Lovenox for anticoagulation and fentanyl/Versed for sedation. Wean steroids per pulmonary. Continue pressors to maintain MAP > 65 mmHg. Patient remains on ETT. Consider tracheostomy placement once oxygenation is better per pulmonary. CIWA protocol initiated for history of EtOH dependence. 06/22. Status post right chest tube placement yesterday. Remains mechanically ventilated on pressors. Examination today shows slightly distended abdomen. KUB ordered. Awaiting stool guaiac. Plan to get a GI evaluation. 06/23. Has colonic distention on the x-ray. Discussed with GI-advised stool softeners for now and close monitoring. No indication for colonic decompression at this time. Guaiac test is positive. No emergent indication for endoscopy at this point as per GI. Continue to monitor hemoglobin. 06/24. Remains intubated. On pressors. GI following for positive guaiac stool and anemia, and colonic distention. 06/25. Repeat abdominal xray ordered. Remains on mechanical ventilation. 06/26. Abdominal xray - resolved colonic distension. Mechanically ventilated. 06/27. Plan for trach and PEG. 06/28: Awaiting trach and Peg. Some Bm REPORTED, will continue to monitor 06/29: Resume care, patient remains on ventilator support, waiting on trach and PEG placement. BM reported by the RN, continue to monitor. 06/30: Unable to wean off from vent, patient will need trach and PEG. Continue supportive care, tolerating tube feed. Monitor CBC and BMP 07/01: Continue mechanical ventilation, tube feeding as tolerated. Sedation as needed per mechanical ventilation protocol. Waiting on trach and PEG placement. 07/02: Continue current management, tube feeding, monitor CBC and BMP. Need tra ch and PEG-waiting on scheduling. Pulmonary critical care following. 07/03: wean off vent as tolerated. follow clinically. need trach and PEG 07/04: unable to wean. CT head ordered to assess for any changes but too unstable to do the test. need trach and PEG. 07/05: plan for trach/peg - GS following. off pressor - on midodrine. renal function stable. intubated, but alert and can follow minor commend. discussed with daughter by phone. 07/06/2020; Dr. Márquez discussed with patient's daughter about trach but the daughter needs time to think about it. Patient was intubated and alert, FiO2 40 %. 07/07/2020; patient was intubated and alert, FiO2 40%. Patient was diaphoretic, tachycardic, and EKG was done which was abnormal for me. I called it admin Dr Louis saw the EKG and said it is normal EKG, and the findings are abnormal. 07/08/2020; no significant change, patient is intubated and alert. History Interval history: Patient was seen and evaluated this morning Patient was intubated, FiO2 40% Patient was diaphoretic and tachycardic Hospitalist Physical - Physical exam Narrative exam: General appearance: Present: no distress, obese, intubated, alert - EENT Eyes: Present: PERRL ENT: Et tube in place - Neck Neck: Present: supple, - Respiratory Respiratory effort: on mechanical ventilation Respiratory: bilateral: diminished, rhonchi, CT tube in place - Cardiovascular Heart Sounds: Present: S1 & S2. Absent: rub, click - Extremities Extremities: pulses symmetrical, No edema Peripheral Pulses: within normal limits - Abdominal General gastrointestinal: Present: soft, non-tender, mild distended, normal bowel sounds Male genitourinary: Present: normal - Integumentary Integumentary: Present: clear, warm, dry - Musculoskeletal Musculoskeletal: generalized weakness - Psychiatric Psychiatric: Unable to assess - Neurologic Neurologic: Intubated but alert - Constitutional Vitals: Temp Pulse Resp BP Pulse Ox 97.2 F L 146 H 40 H 121/67 100 07/08/20 04:00 07/08/20 07:25 07/08/20 06:01 07/08/20 07:25 07/08/20 07:25 General appearance: Present: no acute distress, other HEART Score - HEART Score Troponin: Troponin T 0.015 ng/mL (0.00-0.029) 07/07/20 10:00 Results - Labs CBC & Chem 7: 07/08/20 04:58 07/08/20 04:58 Labs: Laboratory Last Values WBC 21.0 K/mm3 (4.5-11.0) H 07/08/20 04:58 RBC 2.86 M/mm3 (3.65-5.03) L 07/08/20 04:58 Hgb 9.2 gm/dl (11.8-15.2) L 07/08/20 04:58 Hct 28.6 % (35.5-45.6) L 07/08/20 04:58 MCV 100 fl (84-94) H 07/08/20 04:58 MCH 32 pg (28-32) 07/08/20 04:58 MCHC 32 % (32-34) 07/08/20 04:58 RDW 16.7 % (13.2-15.2) H 07/08/20 04:58 Plt Count 250 K/mm3 (140-440) 07/08/20 04:58 Lymph % (Auto) 11.1 % (13.4-35.0) L 07/07/20 05:35 [place] % (Auto) 5.6 % (0.0-7.3) 07/07/20 05:35 Eos % (Auto) 0.2 % (0.0-4.3) 07/07/20 05:35 Baso % (Auto) 0.1 % (0.0-1.8) 07/07/20 05:35 Lymph # (Auto) 2.0 K/mm3 (1.2-5.4) 07/07/20 05:35 [place] # (Auto) 1.0 K/mm3 (0.0-0.8) H 07/07/20 05:35 Eos # (Auto) 0.0 K/mm3 (0.0-0.4) 07/07/20 05:35 Baso # (Auto) 0.0 K/mm3 (0.0-0.1) 07/07/20 05:35 Add Manual Diff Complete 07/08/20 04:58 Total Counted 100 07/08/20 04:58 Seg Neutrophils % 83.0 % (40.0-70.0) H 07/07/20 05:35 Seg Neuts % (Manual) 93.0 % (40.0-70.0) H 07/08/20 04:58 Band Neutrophils % 2.0 % 07/01/20 06:41 Lymphocytes % (Manual) 3.0 % (13.4-35.0) L 07/08/20 04:58 Reactive Lymphs % (Man) 0 % 06/15/20 Unknown Monocytes % (Manual) 4.0 % (0.0-7.3) 07/08/20 04:58 Eosinophils % (Manual) 3.0 % (0.0-4.3) 07/01/20 06:41 Basophils % (Manual) 0 % (0.0-1.8) 06/15/20 Unknown Metamyelocytes % 1.0 % 06/28/20 06:35 Myelocytes % 0 % 06/15/20 Unknown Promyelocytes % 0 % 06/15/20 Unknown Blast Cells % 0 % 06/15/20 Unknown Nucleated RBC % Not Reportable 07/08/20 04:58 Seg Neutrophils # 14.6 K/mm3 (1.8-7.7) H 07/07/20 05:35 Seg Neutrophils # Man 19.5 K/mm3 (1.8-7.7) H 07/08/20 04:58 Band Neutrophils # 0.0 K/mm3 07/08/20 04:58 Lymphocytes # (Manual) 0.6 K/mm3 (1.2-5.4) L 07/08/20 04:58 Abs React Lymphs (Man) 0.0 K/mm3 07/08/20 04:58 Monocytes # (Manual) 0.8 K/mm3 (0.0-0.8) 07/08/20 04:58 Eosinophils # (Manual) 0.0 K/mm3 (0.0-0.4) 07/08/20 04:58 Basophils # (Manual) 0.0 K/mm3 (0.0-0.1) 07/08/20 04:58 Metamyelocytes # 0.0 K/mm3 07/08/20 04:58 Myelocytes # 0.0 K/mm3 07/08/20 04:58 Promyelocytes # 0.0 K/mm3 07/08/20 04:58 Blast Cells # 0.0 K/mm3 07/08/20 04:58 WBC Morphology Not Reportable 07/08/20 04:58 Hypersegmented Neuts Not Reportable 07/08/20 04:58 Hyposegmented Neuts Not Reportable 07/08/20 04:58 Hypogranular Neuts Not Reportable 07/08/20 04:58 Smudge Cells Not Reportable 07/08/20 04:58 Toxic Granulation Not Reportable 07/08/20 04:58 Toxic Vacuolation Not Reportable 07/08/20 04:58 Dohle Bodies Not Reportable 07/08/20 04:58 Pelger-Huet Anomaly Not Reportable 07/08/20 04:58 Jason Rods Not Reportable 07/08/20 04:58 Platelet Estimate Consistent w auto 07/08/20 04:58 Clumped Platelets Not Reportable 07/08/20 04:58 Plt Clumps, EDTA Not Reportable 07/08/20 04:58 Large Platelets Not Reportable 07/08/20 04:58 Giant Platelets Not Reportable 07/08/20 04:58 Platelet Satelliting Not Reportable 07/08/20 04:58 Plt Morphology Comment Not Reportable 07/08/20 04:58 RBC Morphology Normal 07/08/20 04:58 Dimorphic RBCs Not Reportable 07/08/20 04:58 Polychromasia Not Reportable 07/08/20 04:58 Hypochromasia Not Reportable 07/08/20 04:58 Poikilocytosis Not Reportable 07/08/20 04:58 Anisocytosis Not Reportable 07/08/20 04:58 Microcytosis Not Reportable 07/08/20 04:58 Macrocytosis Not Reportable 07/08/20 04:58 Spherocytes Not Reportable 07/08/20 04:58 Pappenheimer Bodies Not Reportable 07/08/20 04:58 Sickle Cells Not Reportable 07/08/20 04:58 Target Cells Not Reportable 07/08/20 04:58 Stomatocytes Few 06/14/20 07:15 Tear Drop Cells Not Reportable 07/08/20 04:58 Ovalocytes Not Reportable 07/08/20 04:58 Helmet Cells Not Reportable 07/08/20 04:58 [place] Bodies Not Reportable 07/08/20 04:58 [place] Rings Not Reportable 07/08/20 04:58 Z[place]ella Cells Not Reportable 07/08/20 04:58 Bite Cells Not Reportable 07/08/20 04:58 Crenated Cell Not Reportable 07/08/20 04:58 Elliptocytes Not Reportable 07/08/20 04:58 Acanthocytes (Spur) Not Reportable 07/08/20 04:58 Rouleaux Not Reportable 07/08/20 04:58 Hemoglobin C Crystals Not Reportable 07/08/20 04:58 Schistocytes Not Reportable 07/08/20 04:58 Malaria parasites Not Reportable 07/08/20 04:58 Josue Bodies Not Reportable 07/08/20 04:58 Hem Pathologist Commnt No 07/08/20 04:58 PT 11.8 Sec. (12.2-14.9) L 06/22/20 14:29 INR 0.88 (0.87-1.13) 06/22/20 14:29 APTT 23.5 Sec. (24.2-36.6) L 06/22/20 14:29 D-Dimer 1887.82 ng/mlDDU (0-234) H 05/20/20 08:16 Heparin Anti-Xa Level 0.37 U.I./ml (0.3-0.7) 07/02/20 16:08 ABG pH 7.428 pH Units (7.350-7.450) 07/08/20 Unknown POC ABG pCO2 47.1 mmHg (32.0-48.0) 07/05/20 05:25 ABG pCO2 53.1 mm Hg 07/08/20 Unknown POC ABG pO2 198.6 mmHg (83-108) H 07/05/20 05:25 ABG pO2 75.3 mm Hg (80.0-90.0) L 07/08/20 Unknown POC ABG HCO3 37.5 07/05/20 05:25 ABG HCO3 34.3 mmol/L (20.0-26.0) H 07/08/20 Unknown ABG O2 Saturation 96.5 % (95.0-99.0) 07/08/20 Unknown ABG O2 Content 13.5 (0.0-44) 07/08/20 Unknown POC ABG Base Excess 13.2 07/05/20 05:25 ABG Base Excess 8.7 mmol/L (-2.0-3.0) H 07/08/20 Unknown ABG Hemoglobin 10.2 gm/dl (14.0-18.0) L 07/08/20 Unknown ABG Oxyhemoglobin 98.7 (94-98) H 07/05/20 05:25 ABG Carboxyhemoglobin 2.4 % (0.0-5.0) 07/08/20 Unknown ABG Methemoglobin 0.5 % (0.0-1.5) 07/08/20 Unknown ABG Sodium 133.6 mmol/L (136.0-145.0) L 07/05/20 05:25 ABG Potassium 3.3 mmol/L (3.40-4.50) L 07/05/20 05:25 ABG Chloride 93.0 mmol/L (98-107) L 07/05/20 05:25 ABG Glucose 175 mg/dL (65-95) H 07/05/20 05:25 Oxyhemoglobin 93.7 % (95.0-99.0) L 07/08/20 Unknown Carboxyhemoglobin 0.8 (0.5-1.5) 07/05/20 05:25 FiO2 40 % 07/08/20 Unknown Sodium 137 mmol/L (137-145) 07/08/20 04:58 Potassium 3.0 mmol/L (3.6-5.0) L 07/08/20 04:58 Chloride 100.9 mmol/L (98-107) 07/08/20 04:58 Carbon Dioxide 30 mmol/L (22-30) 07/08/20 04:58 Anion Gap 9 mmol/L 07/08/20 04:58 BUN 16 mg/dL (9-20) 07/08/20 04:58 Creatinine 0.2 mg/dL (0.8-1.3) L 07/08/20 04:58 Estimated GFR > 60 ml/min 07/08/20 04:58 BUN/Creatinine Ratio 80 % 07/08/20 04:58 Glucose 201 mg/dL (75-100) H 07/08/20 04:58 POC Glucose 161 mg/dL (70-105) H 07/08/20 05:38 Lactic Acid 1.80 mmol/L (0.7-2.0) 05/09/20 Unknown Calcium 7.9 mg/dL (8.4-10.2) L D 07/08/20 04:58 Phosphorus 3.10 mg/dL (2.5-4.5) 06/15/20 04:00 Magnesium 1.70 mg/dL (1.7-2.3) 06/30/20 07:00 Ferritin 1496.0 ng/mL (30.0-300.0) H 06/14/20 11:50 Total Bilirubin 0.60 mg/dL (0.1-1.2) 06/30/20 07:00 Direct Bilirubin 0.6 mg/dL (0-0.2) H 05/11/20 07:30 Indirect Bilirubin 0.9 mg/dL 05/11/20 07:30 AST 21 units/L (5-40) 06/30/20 07:00 ALT 30 units/L (7-56) 06/30/20 07:00 Alkaline Phosphatase 81 units/L (35-129) 06/30/20 07:00 Lactate Dehydrogenase 705 units/L (91-180) H 05/20/20 08:16 Troponin T 0.015 ng/mL (0.00-0.029) 07/07/20 10:00 C-Reactive Protein 3.10 mg/dL (0.00-1.30) H 05/20/20 08:16 Total Protein 6.3 g/dL (6.3-8.2) 06/30/20 07:00 Albumin 2.8 g/dL (3.9-5) L 06/30/20 07:00 Albumin/Globulin Ratio 0.8 % 06/30/20 07:00 Triglycerides 452 mg/dL (2-149) H 06/30/20 07:00 Lipase 86 units/L (13-60) H 06/29/20 09:36 Procalcitonin 0.94 ng/mL (<0.15) 06/14/20 11:50 Arterial Blood Glucose 175 mg/dL (65-95) H 07/05/20 05:25 Arterial Blood Ionized Calcium 4.7 mg/dL (4.6-5.3) 07/05/20 05:25 Urine Color Fauzia (Yellow) 05/10/20 Unknown Urine Turbidity Clear (Clear) 05/10/20 Unknown Urine pH 5.0 (5.0-7.0) 05/10/20 Unknown Ur Specific [place] 1.019 (1.003-1.030) 05/10/20 Unknown Urine Protein 100 mg/dl mg/dL (Negative) 05/10/20 Unknown Urine Glucose (UA) Neg mg/dL (Negative) 05/10/20 Unknown Urine Ketones Neg mg/dL (Negative) 05/10/20 Unknown Urine Blood Lg (Negative) 05/10/20 Unknown Urine Nitrite Neg (Negative) 05/10/20 Unknown Urine Bilirubin Neg (Negative) 05/10/20 Unknown Urine Urobilinogen 2.0 mg/dL (<2.0) 05/10/20 Unknown Ur Leukocyte Esterase Neg (Negative) 05/10/20 Unknown Urine WBC (Auto) 11.0 /HPF (0.0-6.0) H 05/10/20 Unknown Urine RBC (Auto) 2.0 /HPF (0.0-6.0) 05/10/20 Unknown U Epithel Cells (Auto) 1.0 /HPF (0-13.0) 05/10/20 Unknown Urine Bacteria (Auto) 1+ /HPF (Negative) 05/10/20 Unknown Urine Mucus Few /HPF 05/10/20 Unknown Plasma/Serum Alcohol < 0.01 % (0-0.07) 05/09/20 14:20 Coronavirus (PCR) Negative (Negative) 06/30/20 10:28 SARS-CoV-2 IgG Ab Reactive (NonReactive) A 05/11/20 07:30 Blood Type B POSITIVE 06/21/20 14:18 Antibody Screen Negative 06/21/20 14:18 Crossmatch See Detail 06/21/20 14:18 - Diagnostic Impressions Diagnostic Impressions: Echocardiogram 05/20/20 13:02 Transthoracic Echocardiogram Indication: CHF BP: 97/73 Conclusions *The study quality is technically very difficult and limited. *The left ventricular chamber size, wall thickness and systolic function are within normal limits. There are no wall motion abnormalities observed. Ejection fraction is normal. *The estimated ejection fraction is 60-65%. *The pericardium appears normal. Findings Procedure Info: The study quality is technically difficult. Left Ventricle: The left ventricular chamber size, wall thickness and systolic function are within normal limits. There are no wall motion abnormalities observed. Ejection fraction is normal. The estimated ejection fraction is 60-65%. Abnormal left ventricular diastolic filling is observed, consistent with impaired relaxation. Left Atrium: The left atrium is normal in size with no visual thrombus identified. Right Ventricle: The right ventricle is not well visualized. Right Atrium: The right atrium is not well visualized. Aortic Valve: The aortic valve is trileaflet. The leaflets are thin with normal excursion. There is no aortic stenosis or regurgitation present. Mitral Valve: The mitral valve appears normal in structure and function. Tricuspid Valve: The tricuspid valve appears normal in structure and function. Unable to estimate the right ventricular systolic pressure. Pulmonic Valve: The pulmonic valve is not well visualized. There is no evidence of pulmonic regurgitation. There is no pulmonic stenosis. Pericardium: The pericardium appears normal. Pulmonary Artery: The main pulmonary artery is not well visualized. Venous: The inferior vena cava appears normal in size. Measurements Chambers 2D Name Value Normal Range IVSd (2D) 0.83 cm (0.6 - 1.1) LVPWd (2D) 0.83 cm (0.6 - 1.1) LVIDd (2D) 3.88 cm (3.7 - 5.6) LVIDs (2D) 2.46 cm (2 - 3.8) LV FS (2D) 36.52 % - EF Teichholz (2D) 66.97 % - Ao root diameter (2D) 3.47 cm (2 - 3.7) Volumes/Mass Name Value Normal Range LA ESV SP 4CH (A/L) 22.4 ml - LA ESV SP 2CH (A/L) 22.89 ml - LA ESV BP (A/L) 23.06 ml - LA ESV SP 4CH (MOD) 21.09 ml - LA ESV SP 2CH (MOD) 22.44 ml - Diastolic/Systolic Function Name Value Normal Range MV E-wave Vmax 0.48 m/sec - MV deceleration time 156.3 msec - MV A-wave Vmax 0.59 m/sec - MV E:A ratio 0.81 ratio - Aortic Valve Name Value Normal Range AV Vmax 0.97 m/sec - AV VTI 14.49 cm - AV peak gradient 3.73 mmHg - AV mean gradient 1.89 mmHg - LVOT diameter 2.09 cm - LVOT Vmax 0.72 m/sec - LVOT VTI 10.21 cm - LVOT peak gradient 2.05 mmHg - LVOT mean gradient 1.03 mmHg - SV LVOT 35.17 ml - INNA (continuity Vmax) 2.55 cm2 - INNA (continuity VTI) 2.43 cm2 - Tricuspid Valve Name Value Normal Range TV E-wave Vmax 0.37 m/sec - Pulmonic Valve/Qp:Qs Name Value Normal Range PV Vmax 0.72 m/sec - PV peak gradient 2.06 mmHg - RVOT Vmax 0.85 m/sec - RVOT VTI 9.89 cm - RVOT peak gradient 2.9 mmHg - PV acceleration time 72.31 msec - Cantor/IV: Voiding Method Condom Catheter IV Catheter Type [Right Upper PICC Line arm] IV Catheter Type [Right CVL Internal Jugular] IV Catheter Type [Right Peripheral IV Forearm] IV Catheter Type [Left Forearm Peripheral IV ] IV Catheter Type [Left Wrist] INT / Saline Lock IV Catheter Type [Right Hand] INT / Saline Lock IV Catheter Type [Left Hand] INT / Saline Lock IV Catheter Type [Left Peripheral IV Antecubital] Active Medications - Current Medications Current Medications: Generic Name Dose Route Start Last Admin Trade Name Freq PRN Reason Stop Dose Admin Acetaminophen 650 mg 06/14/20 10:07 06/21/20 20:21 Tylenol FEEDTUBE 650 mg Q4H PRN Administration Pain, Mild (1-3) Alprazolam 0.25 mg 05/20/20 17:53 07/08/20 06:24 Alprazolam 0.25 Mg Tab PO 0.25 mg Q8H PRN Administration Anxiety Lipase/Protease/Amylase 1 each 05/22/20 13:01 Lipase 10,500/Protease 25,000/Amylase 43,750 (Units) Dr Newell FEEDTUBE PRN PRN For Clogged Feeding Tube Bisacodyl 10 mg 06/26/20 22:00 07/07/20 22:16 Bisacodyl 10 Mg Rect Supp IL 10 mg BID DESIRE Administration Docusate Sodium 100 mg 05/28/20 14:00 07/07/20 22:15 Docusate Sodium 100 Mg/10 Ml Oral Liqd PO 100 mg BID DESIRE Administration Enoxaparin Sodium 80 mg 07/07/20 23:00 07/08/20 00:03 Enoxaparin 80 Mg/0.8 Ml Inj SUB-Q 80 mg Q12HR DESIRE Administration Enoxaparin Sodium 30 mg 07/07/20 23:00 07/08/20 00:04 Enoxaparin 30 Mg/0.3 Ml Inj SUB-Q 30 mg Q12HR DESIRE Administration Fentanyl 50 mcg 06/22/20 09:48 07/07/20 12:19 Fentanyl 100 Mcg/2 Ml Inj IV 50 mcg Q10MIN PRN Administration ANALGESIA Folic Acid 1 mg 05/09/20 15:36 07/07/20 09:37 Folic Acid 1 Mg Tab PO 1 mg QDAY DESIRE Administration Hydrophilic Ointment 1 applic 05/21/20 20:33 Lip Therapy Vaseline TP Q2HR PRN Dry Lips Midazolam HCl 100 mg/ Sodium 100 mls @ 2 mls/hr 06/02/20 14:00 07/07/20 23:09 Chloride IV 5 mg/hr TITR DESIRE 5 mls/hr Titration Protocol 2 MG/HR Norepinephrine 4 mg in 250 mls @ 7.5 mls/hr 06/04/20 16:00 07/08/20 03:20 Levophed Drip 4 Mg/Ns 250 Ml IV 6 mcg/min TITR DESIRE 22.5 mls/hr Administration Protocol 2 MCG/MIN Fentanyl Citrate 2,000 mcg in 100 mls @ 5.32 mls/hr 06/09/20 14:00 07/08/20 08:24 Fentanyl Drip Premix IV 4 mcg/kg/hr TITR DESIRE 21.28 mls/hr Administration Protocol 1 MCG/KG/HR Vasopressin 20 unit/ Sodium 101 mls @ 9.09 mls/hr 06/09/20 18:00 Chloride IV TITR DESIRE Protocol 0.03 UNITS/MIN Dexmedetomidine HCl 1,000 mcg/ 260 mls @ 5.668 mls/hr 07/05/20 08:30 07/08/20 06:20 Sodium Chloride IV 1.2 mcg/kg/hr TITRATE DESIRE 34.008 mls/hr Administration Protocol 0.2 MCG/KG/HR Insulin Glargine 30 units 06/30/20 22:00 07/07/20 22:15 Insulin Glargine 100 Units/Ml SUB-Q 30 units QHS DESIRE Administration Insulin Glargine 5 units 07/05/20 14:00 07/07/20 09:37 Insulin Glargine 100 Units/Ml SUB-Q 5 units DAILY DESIRE Administration Insulin Human Lispro 0 unit 05/29/20 14:00 07/08/20 06:14 Insulin Lispro 100 Unit/Ml Vial 3 Ml SUB-Q 3 unit Q6H DESIRE Administration Protocol Lansoprazole 30 mg 06/28/20 10:00 07/07/20 09:37 Lansoprazole 30 Mg Solutab FEEDTUBE 30 mg QDAY DESIRE Administration Lorazepam 1 mg 07/04/20 01:10 07/08/20 04:45 Lorazepam 2 Mg/Ml Vial IV 1 mg Q1HR PRN Administration agitation Methylprednisolone Sodium Succinate 40 mg 05/20/20 18:00 07/08/20 06:14 Methylprednisolone Sod Succinate 40 Mg/1 Ml Inj IV 40 mg Q12H DESIRE Administration Metoprolol Tartrate 5 mg 07/02/20 17:17 07/03/20 09:03 Metoprolol Tartrate 5 Mg/5 Ml Inj IV 5 mg Q6HR PRN Administration Tachyarrhythmias Midodrine 10 mg 06/30/20 16:00 07/08/20 08:26 Midodrine 5 Mg Tab PO 10 mg TID@0800,1200,1600 DESIRE Administration Multi-Ingred Cream/Lotion/Oil/Oint 1 applic 05/21/20 20:33 Mineral Oil/Petrolatum, White Ophth Oint 3.5 Gm OU Q4HR PRN Dry Eye(s) Phenobarbital 32.4 mg 07/04/20 22:00 07/07/20 22:15 Phenobarbital 32.4 Mg Tab PO 32.4 mg BID DESIRE Administration Quetiapine Fumarate 100 mg 07/02/20 23:15 07/08/20 08:26 Quetiapine 100 Mg Tab PO 100 mg TID DESIRE Administration Quetiapine Fumarate 200 mg 07/02/20 23:00 07/08/20 08:28 Quetiapine 200 Mg Tab PO 200 mg TID DESIRE Administration Senna 17.2 mg 06/07/20 10:00 07/07/20 22:15 Sennosides 8.6 Mg Tab PO 17.2 mg BID DESIRE Administration Simple Syrup 15 ml 05/22/20 13:01 Simple Syrup 15 Ml FEEDTUBE PRN PRN Hypoglycemia Simple Syrup 30 ml 05/22/20 13:01 Simple Syrup 15 Ml FEEDTUBE PRN PRN Hypoglycemia Sodium Bicarbonate 325 mg 05/22/20 13:01 Sodium Bicarbonate 325 Mg Tab FEEDTUBE PRN PRN For Clogged Feeding Tube Sodium Chloride 10 ml 05/09/20 22:00 07/07/20 22:20 Sodium Chloride 0.9% 10 Ml Flush Syringe IV 10 ml BID DESIRE Administration Nutrition/Malnutrition Assess - Dietary Evaluation Nutrition/Malnutrition Findings: Nutrition Notes Start: 05/17/20 14:10 Freq: Status: Active Protocol: Document 07/07/20 13:16 (Rec: 07/07/20 13:20 [email or web address]) Nutrition Notes Initial or Follow up Reassessment Current Diagnosis Sepsis,Respiratory Failure Other Pertinent Diagnosis Bilat pneu, COVID-19 (+), EtOH dependence Current Diet Vital HP at 65 ml/hr (goal rate) Labs/Tests Na 135 K 3.4 BG 240 Pertinent Medications Solumedrol Humalog Levophed Height 6 ft Weight 110 kg [place] Body Weight (kg) 80.90 BMI 32.8 Weight Status Obese Subjective/Other Information FU for TF tolerance. Per RN, pt tolerating TF at goal. Percent of energy/protein needs met: 87%/84% Burn Absent Trauma Absent GI Symptoms None Current % PO Negligible Minimum of two criteria No physical signs of malnutrition #1 Nutrition Diagnosis Inadequate oral intake Diagnosis Progress(for reassessment Continues documentation) Is patient on ventilator? Yes Is Patient Ambulatory and/or Out of Bed No REE-([facility]-confined to bed) [phone] Kcal/Kg value to use for calculation 16 Approximate Energy Requirements Using 1760 kcal/Kg Calculation Used for Recommendations Kcal/kg Additional Notes Pro needs >2g/kg IBW: at least 162g/day Fluid needs 1ml/kcal Nutrition Intervention Change Diet Order: Continue TF Nutrition Support: Vital HP at 65ml/hr with 50ml water flush q4h. Kcal 1,560 Protein (gm) 136 Fluid (mL) 1,304 Goal #1 TF tolerance Goal #2 TF (at goal rate) to meet at least 75% energy and pro needs Anticipated Discharge Needs: Unable to identify at this time Follow-Up By: 07/14/20 Additional Comments F/U TF tolerance
[2020-07-08] MEDS ORDERED: ENOXAPARIN 30 MG/0.3 ML INJ SUB-Q SCH (10:00)
[2020-07-08] MEDS: SENNOSIDES 8.6 MG TAB PO SCH ×2 (10:10→21:48)
[2020-07-08] MEDS: LANSOPRAZOLE 30 MG SOLUTAB FEEDTUBE SCH (10:10)
[2020-07-08] MEDS: FOLIC ACID 1 MG TAB PO SCH (10:10)
[2020-07-08] MEDS: INSULIN GLARGINE 100 UNITS/ML SUB-Q SCH ×2 (10:10→21:48)
[2020-07-08] MEDS: DOCUSATE SODIUM 100 MG/10 ML ORAL LIQD PO SCH ×2 (10:10→21:48)
[2020-07-08] MEDS: PHENobarbital 32.4 MG TAB PO SCH ×2 (10:11→21:48)
--- NOTE | 2020-07-08 12:39 | Progress Note ---
Assessment and Plan 50 yo M with 1. VDRF 2. COVID PNA 3. R PTX Vent settings: AC PRVC 40% FIO2, RR30, PEEP 6, TV 500 Plan: 1. Vent weaning per ICU team 2. continue TF via OGT 3. on therapeutic anticoagulation - will need to be held 24 hours prior to trach eostomy placement once scheduled 4. chest tube to -[id number] suction via pleurevac Spoke with patient's daughter and updated her of his condition. Once again discussed need for trach/peg. She is not ready to give consent for procedures. She would like to see how patient does with vent weaning on his own and if he tolerates extubation. Explained to her that the longer he is intubated, the higher the risk of tracheal stenosis and other complications. She understands. I will ask Dr. Delgado to reach out to her and again discuss vent weaning. Notified Dr. Delgado. Thank you, please call with questions Subjective Date of service: 07/08/20 Narrative: Pt seen and examined. On levophed for hypotension. Remains on vent, intubated. Objective Vital Signs - 12hr 07/08/20 07/08/20 07/08/20 00:45 01:00 01:15 Temperature Pulse Rate 104 H 99 H 97 H Pulse Rate [ From Monitor] Respiratory 19 15 14 Rate Blood Pressure 116/75 118/80 113/77 O2 Sat by Pulse 94 94 95 Oximetry 07/08/20 07/08/20 07/08/20 01:30 01:45 02:00 Temperature Pulse Rate 94 H 93 H 92 H Pulse Rate [ From Monitor] Respiratory 14 20 27 H Rate Blood Pressure 118/79 124/79 123/79 O2 Sat by Pulse 95 94 94 Oximetry 07/08/20 07/08/20 07/08/20 02:15 02:30 02:45 Temperature Pulse Rate 92 H 91 H 90 Pulse Rate [ From Monitor] Respiratory 25 H 20 25 H Rate Blood Pressure 107/60 111/69 114/73 O2 Sat by Pulse 92 93 92 Oximetry 07/08/20 07/08/20 07/08/20 03:00 03:15 03:30 Temperature Pulse Rate 88 89 84 Pulse Rate [ From Monitor] Respiratory 15 25 H 22 Rate Blood Pressure 117/76 116/75 113/77 O2 Sat by Pulse 94 94 93 Oximetry 07/08/20 07/08/20 07/08/20 03:45 03:59 04:00 Temperature 97.2 F L Pulse Rate 63 100 H 97 H Pulse Rate [ 110 H From Monitor] Respiratory 26 H 22 Rate Blood Pressure 113/77 105/68 113/75 O2 Sat by Pulse 97 97 95 Oximetry 07/08/20 07/08/20 07/08/20 04:15 04:31 04:45 Temperature Pulse Rate 113 H 118 H 118 H Pulse Rate [ From Monitor] Respiratory 28 H 30 H 27 H Rate Blood Pressure 108/84 116/62 129/63 O2 Sat by Pulse 93 93 93 Oximetry 07/08/20 07/08/20 07/08/20 05:00 05:15 05:30 Temperature Pulse Rate 113 H 106 H 114 H Pulse Rate [ From Monitor] Respiratory 28 H 26 H 30 H Rate Blood Pressure 111/60 99/65 101/74 O2 Sat by Pulse 91 89 90 Oximetry 07/08/20 07/08/20 07/08/20 05:45 06:01 06:15 Temperature Pulse Rate 74 121 H 121 H Pulse Rate [ From Monitor] Respiratory 37 H 40 H 35 H Rate Blood Pressure 101/74 169/85 115/81 O2 Sat by Pulse 91 85 90 Oximetry 07/08/20 07/08/20 07/08/20 06:30 06:45 07:01 Temperature Pulse Rate 118 H 135 H 127 H Pulse Rate [ From Monitor] Respiratory 38 H 21 38 H Rate Blood Pressure 106/70 119/65 168/91 O2 Sat by Pulse 89 84 83 L Oximetry 07/08/20 07/08/20 07/08/20 07:15 07:25 07:31 Temperature Pulse Rate 128 H 146 H 143 H Pulse Rate [ From Monitor] Respiratory 18 34 H Rate Blood Pressure 170/97 121/67 101/73 O2 Sat by Pulse 81 L 100 99 Oximetry 07/08/20 07/08/20 07/08/20 07:45 08:00 08:15 Temperature 98.7 F Pulse Rate 145 H 135 H 134 H Pulse Rate [ 135 H From Monitor] Respiratory 41 H 38 H 29 H Rate Blood Pressure 101/73 115/76 118/76 O2 Sat by Pulse 91 87 93 Oximetry 07/08/20 07/08/20 07/08/20 08:30 08:45 09:00 Temperature Pulse Rate 130 H 126 H 122 H Pulse Rate [ From Monitor] Respiratory 31 H 30 H 29 H Rate Blood Pressure 103/64 102/57 85/52 O2 Sat by Pulse 91 92 92 Oximetry 07/08/20 07/08/20 07/08/20 09:15 09:30 09:45 Temperature Pulse Rate 120 H 110 H 104 H Pulse Rate [ From Monitor] Respiratory 31 H 30 H 30 H Rate Blood Pressure 93/60 88/59 92/57 O2 Sat by Pulse 92 94 92 Oximetry 07/08/20 07/08/20 10:00 10:15 Temperature Pulse Rate 99 H 109 H Pulse Rate [ From Monitor] Respiratory 30 H 29 H Rate Blood Pressure 95/56 95/56 O2 Sat by Pulse 94 93 Oximetry - General physical appearance Narrative Exam: Gen: Awake on vent, on sedation. NAD ENT: ETT and OGT in place CV: S1, S2+ Resp: on vent support. R chest tube without leak, to suction Abd: soft, NT, ND Ext: edema - Labs 07/08/20 04:58 07/08/20 04:58 Diabetes panel 07/08/20 Range/Units 04:58 Sodium 137 (137-145) mmol/L Potassium 3.0 L (3.6-5.0) mmol/L Chloride 100.9 (98-107) mmol/L Carbon Dioxide 30 (22-30) mmol/L BUN 16 (9-20) mg/dL Creatinine 0.2 L (0.8-1.3) mg/dL Glucose 201 H (75-100) mg/dL Calcium 7.9 L D (8.4-10.2) mg/dL Calcium panel 07/08/20 Range/Units 04:58 Calcium 7.9 L D (8.4-10.2) mg/dL Pituitary panel 07/08/20 Range/Units 04:58 Sodium 137 (137-145) mmol/L Potassium 3.0 L (3.6-5.0) mmol/L Chloride 100.9 (98-107) mmol/L Carbon Dioxide 30 (22-30) mmol/L BUN 16 (9-20) mg/dL Creatinine 0.2 L (0.8-1.3) mg/dL Glucose 201 H (75-100) mg/dL Calcium 7.9 L D (8.4-10.2) mg/dL Adrenal panel 07/08/20 Range/Units 04:58 Sodium 137 (137-145) mmol/L Potassium 3.0 L (3.6-5.0) mmol/L Chloride 100.9 (98-107) mmol/L Carbon Dioxide 30 (22-30) mmol/L BUN 16 (9-20) mg/dL Creatinine 0.2 L (0.8-1.3) mg/dL Glucose 201 H (75-100) mg/dL Calcium 7.9 L D (8.4-10.2) mg/dL
[2020-07-08] MEDS: METOPROLOL TARTRATE 5 MG/5 ML INJ IV PRN (14:38)
--- NOTE | 2020-07-08 15:25 | Progress Note ---
Assessment and Plan Acute hypoxemic respiratory failure due to COVID-19 Severe Sepsis Bilateral pneumonia Acute kidney injury (SEN) with acute tubular necrosis (ATN) Alcohol dependence Elevated liver function tests (Patient appears alert and follows simple commands albeit on sedation. I have explained to him the risk of sub-glottic stenosis but in partiocular the fact that his course as with many COVID patients appears to be frought with in termittent steps backwards. Considering the duration of intubation and the above i have strongly recommended he get a tracheostomy. I have also explained this to his daughter Tracie and also explained that with him being as sick as he is and on sedation his comprehension is suspect) - unable to reach daughter at number on chart; she refused a tracheostomy consent to surgeon and i will try to talk to her again about the indications - he decompensated and is back on vasopressors (Levophed @ 16 sergio's/min) - continue care as below otherwise; - awaiting tracheostomy (COVID repeat negative) - continue to wean supplemental oxygen for target O2 sat's > 92% acutely - resume Daily SAT's and SBT assessment as tolerated - continue Seroquel at 300 mg po tid - continue Precedex - prn 12 lead EKG to monitor QT - continue midodrine re: hypotension - keep peep at 8 - continue bid protonix - continue bowel regimen - continue to wean Levophed for target MAP > 65 mmHg - metoprolol 5 mg IV q6h prn pulse > 130/min - tracheostomy placement once oxygenation better / more hemodynamically stable - he will need a tracheostomy once numbers better - VAP bundle addressed - continue lung protective strategies - continue bronchodilators with pulmonary hygiene per RT - wean per pulmonary driven protocols otherwise - accuchecks with glycemic control per SSI (While critically ill target blood glucose of 140-180 mg/dL; avoid hypoglycemia) - sedation prn for target RASS -1 to -2 - continue enteral nutritional support at goal rate as tolerated - continue airborne and contact isolation - follow repeat COVID-19 testing - continue Zinc & Vit C supplementaion - continue systemic steroids for Asthma / severe COVID infection - Prone positioning as tolerated - continue empiric full dose anticoagulation re: elevated d-dimers / hypercoagulable state - NOT a candidate for COVID convalescent plasma - continue systemic steroids X >/= 10 days - completed remdesivir dosing (total 5 days) - empiric AB's coverage per ID rec's - accuchecks with glycemic control per SSI (While critically ill target blood glucose of 140-180 mg/dL; avoid hypoglycemia) - avoid nephrotoxins, renally dose all medications - continue to avoid benzodiazepine's, reduce the possibility of delirium - continue wound care per RN / WCN - prn analgesia per CPOT score - Maintenance of sleep-wake cycle, avoid delirium - continue to avoid benzodiazepine's, reduce the possibility of delirium - aspiration precautions - G.I. & VTE prophylaxis - PT/OT/ROM exercises - continue mobility protocols for pressure ulcer prophylaxis - Monitor hemodynamics closely - continue other care per attending / other consultants - discharge planning ongoing concurrently .... Re-evaluate in am & prn CONDITION: CRITICAL PROGNOSIS: GUARDED CODE STATUS: FULL CODE The high probability of a clinically significant, sudden or life-threatening deterioration of the [respiratory, cardiovascular, hematologic & neurologic] system(s) required my full and direct attention, intervention and personal management. The aggregate critical care time was [34] minutes without overlap. Time includes spent on; [x] Data Review and interpretation [x] Patient assessment and monitoring of vital signs [x] Documentation [x] Medication orders and management Subjective Date of service: 07/08/20 Principal diagnosis: Ac hypoxemic resp failure; COVID-19; Severe Sepsis; Shaggy PNA; Alcohol Abuse Interval history: Patient is seen today for: Acute hypoxemic respiratory failure due to COVID-19; Severe Sepsis; Bilateral pneumonia; Alcohol dependence; Elevated liver function tests Seen and examined at bedside; 24hour events reviewed; nursing and respiratory care staff consulted; no adverse overnight events reported to me; resting in bed; remains on MVS; remains on full support; No N/V/F/C Objective Vital Signs - 12hr 07/08/20 07/08/20 07/08/20 03:30 03:45 03:59 Temperature Pulse Rate 84 63 100 H Pulse Rate [ From Monitor] Respiratory 22 26 H Rate Blood Pressure 113/77 113/77 105/68 O2 Sat by Pulse 93 97 97 Oximetry 07/08/20 07/08/20 07/08/20 04:00 04:15 04:31 Temperature 97.2 F L Pulse Rate 97 H 113 H 118 H Pulse Rate [ 110 H From Monitor] Respiratory 22 28 H 30 H Rate Blood Pressure 113/75 108/84 116/62 O2 Sat by Pulse 95 93 93 Oximetry 07/08/20 07/08/20 07/08/20 04:45 05:00 05:15 Temperature Pulse Rate 118 H 113 H 106 H Pulse Rate [ From Monitor] Respiratory 27 H 28 H 26 H Rate Blood Pressure 129/63 111/60 99/65 O2 Sat by Pulse 93 91 89 Oximetry 07/08/20 07/08/20 07/08/20 05:30 05:45 06:01 Temperature Pulse Rate 114 H 74 121 H Pulse Rate [ From Monitor] Respiratory 30 H 37 H 40 H Rate Blood Pressure 101/74 101/74 169/85 O2 Sat by Pulse 90 91 85 Oximetry 07/08/20 07/08/20 07/08/20 06:15 06:30 06:45 Temperature Pulse Rate 121 H 118 H 135 H Pulse Rate [ From Monitor] Respiratory 35 H 38 H 21 Rate Blood Pressure 115/81 106/70 119/65 O2 Sat by Pulse 90 89 84 Oximetry 07/08/20 07/08/20 07/08/20 07:01 07:15 07:25 Temperature Pulse Rate 127 H 128 H 146 H Pulse Rate [ From Monitor] Respiratory 38 H 18 Rate Blood Pressure 168/91 170/97 121/67 O2 Sat by Pulse 83 L 81 L 100 Oximetry 07/08/20 07/08/20 07/08/20 07:31 07:45 08:00 Temperature 98.9 F Pulse Rate 143 H 145 H 135 H Pulse Rate [ 135 H From Monitor] Respiratory 34 H 41 H 38 H Rate Blood Pressure 101/73 101/73 115/76 O2 Sat by Pulse 99 91 87 Oximetry 07/08/20 07/08/20 07/08/20 08:15 08:30 08:45 Temperature Pulse Rate 134 H 130 H 126 H Pulse Rate [ From Monitor] Respiratory 29 H 31 H 30 H Rate Blood Pressure 118/76 103/64 102/57 O2 Sat by Pulse 93 91 92 Oximetry 07/08/20 07/08/20 07/08/20 09:00 09:15 09:30 Temperature Pulse Rate 122 H 120 H 110 H Pulse Rate [ From Monitor] Respiratory 29 H 31 H 30 H Rate Blood Pressure 85/52 93/60 88/59 O2 Sat by Pulse 92 92 94 Oximetry 07/08/20 07/08/20 07/08/20 09:45 10:00 10:15 Temperature Pulse Rate 104 H 99 H 109 H Pulse Rate [ From Monitor] Respiratory 30 H 30 H 29 H Rate Blood Pressure 92/57 95/56 95/56 O2 Sat by Pulse 92 94 93 Oximetry 07/08/20 07/08/20 07/08/20 12:00 13:10 14:38 Temperature 99.1 F Pulse Rate 109 H 134 H Pulse Rate [ From Monitor] Respiratory Rate Blood Pressure 95/56 105/66 O2 Sat by Pulse 96 Oximetry Constitutional: no acute distress, other (middle aged obese male with mildly increased respiratory effort at rest on MVS) Eyes: non-icteric ENT: oropharynx moist, other (ETT 24 cm CHILO) Neck: supple, no JVD Effort: mildly labored Ascultation: Bilateral: diminished breath sounds, rhonchi (scant), other (right chest tube) Percussion: Bilateral: not dull Cardiovascular: regular rate and rhythm, other (No R/M) Gastrointestinal: normoactive bowel sounds, soft, non-tender, other (distended and firm) Integumentary: normal Extremities: no cyanosis, no edema, pulses normal, no ischemia or petechiae Neurologic: non-focal exam (non focal grossly; weak), pupils equal and round, CN II-XII normal Psychiatric: mood appropriate, affect normal CBC and BMP: 07/08/20 04:58 07/09/20 Unknown ABG, PT/INR, D-dimer: ABG ABG pH 7.428 pH Units (7.350-7.450) 07/08/20 Unknown POC ABG pCO2 47.1 mmHg (32.0-48.0) 07/05/20 05:25 ABG pCO2 53.1 mm Hg 07/08/20 Unknown POC ABG pO2 198.6 mmHg (83-108) H 07/05/20 05:25 ABG pO2 75.3 mm Hg (80.0-90.0) L 07/08/20 Unknown POC ABG HCO3 37.5 07/05/20 05:25 ABG O2 Saturation 96.5 % (95.0-99.0) 07/08/20 Unknown PT/INR, D-dimer PT 11.8 Sec. (12.2-14.9) L 06/22/20 14:29 INR 0.88 (0.87-1.13) 06/22/20 14:29 D-Dimer 1887.82 ng/mlDDU (0-234) H 05/20/20 08:16 Abnormal lab findings: Abnormal Labs 05/09/20 05/09/20 05/09/20 12:59 12:59 12:59 WBC 11.8 H RBC Hgb Hct MCV 96 H MCH 34 H MCHC 35 H RDW Lymph % (Auto) 6.9 L Lymph # (Auto) 0.8 L [place] # (Auto) Baso # (Auto) Seg Neutrophils % 87.5 H Seg Neuts % (Manual) Lymphocytes % (Manual) Nucleated RBC % Seg Neutrophils # 10.3 H Seg Neutrophils # Man Lymphocytes # (Manual) Monocytes # (Manual) Eosinophils # (Manual) PT INR APTT D-Dimer Heparin Anti-Xa Level ABG pH POC ABG pCO2 POC ABG pO2 ABG pO2 ABG HCO3 ABG O2 Saturation ABG Base Excess ABG Hemoglobin ABG Oxyhemoglobin ABG Sodium ABG Potassium ABG Chloride ABG Glucose Oxyhemoglobin Carboxyhemoglobin Sodium 130 L Potassium 3.5 L Chloride 86.4 L Carbon Dioxide BUN 33 H Creatinine 2.3 H Glucose 156 H POC Glucose Lactic Acid Calcium Magnesium Ferritin Total Bilirubin 3.40 H Direct Bilirubin 1.7 H AST 385 H ALT 134 H Alkaline Phosphatase Lactate Dehydrogenase C-Reactive Protein Total Protein Albumin 3.0 L Triglycerides Lipase Arterial Blood Glucose Arterial Blood Ionized Calcium Urine WBC (Auto) Coronavirus (PCR) SARS-CoV-2 IgG Ab Crossmatch 05/09/20 05/09/20 05/09/20 12:59 12:59 12:59 WBC RBC Hgb Hct MCV MCH MCHC RDW Lymph % (Auto) Lymph # (Auto) [place] # (Auto) Baso # (Auto) Seg Neutrophils % Seg Neuts % (Manual) Lymphocytes % (Manual) Nucleated RBC % Seg Neutrophils # Seg Neutrophils # Man Lymphocytes # (Manual) Monocytes # (Manual) Eosinophils # (Manual) PT INR APTT D-Dimer 3242.51 H Heparin Anti-Xa Level ABG pH POC ABG pCO2 POC ABG pO2 ABG pO2 ABG HCO3 ABG O2 Saturation ABG Base Excess ABG Hemoglobin ABG Oxyhemoglobin ABG Sodium ABG Potassium ABG Chloride ABG Glucose Oxyhemoglobin Carboxyhemoglobin Sodium Potassium Chloride Carbon Dioxide BUN Creatinine Glucose 158 H POC Glucose Lactic Acid 3.50 H* Calcium Magnesium Ferritin Total Bilirubin Direct Bilirubin AST ALT Alkaline Phosphatase Lactate Dehydrogenase 2166 H C-Reactive Protein 39.00 H Total Protein Albumin Triglycerides Lipase Arterial Blood Glucose Arterial Blood Ionized Calcium Urine WBC (Auto) Coronavirus (PCR) SARS-CoV-2 IgG Ab Crossmatch 05/09/20 05/09/20 05/09/20 12:59 14:20 14:20 WBC RBC Hgb Hct MCV MCH MCHC RDW Lymph % (Auto) Lymph # (Auto) [place] # (Auto) Baso # (Auto) Seg Neutrophils % Seg Neuts % (Manual) Lymphocytes % (Manual) Nucleated RBC % Seg Neutrophils # Seg Neutrophils # Man Lymphocytes # (Manual) Monocytes # (Manual) Eosinophils # (Manual) PT INR APTT D-Dimer 2861.78 H Heparin Anti-Xa Level ABG pH POC ABG pCO2 POC ABG pO2 ABG pO2 ABG HCO3 ABG O2 Saturation ABG Base Excess ABG Hemoglobin ABG Oxyhemoglobin ABG Sodium ABG Potassium ABG Chloride ABG Glucose Oxyhemoglobin Carboxyhemoglobin Sodium Potassium Chloride Carbon Dioxide BUN Creatinine Glucose POC Glucose Lactic Acid 2.20 H* Calcium Magnesium Ferritin 90455.0 H Total Bilirubin Direct Bilirubin AST ALT Alkaline Phosphatase Lactate Dehydrogenase C-Reactive Protein Total Protein Albumin Triglycerides Lipase Arterial Blood Glucose Arterial Blood Ionized Calcium Urine WBC (Auto) Coronavirus (PCR) SARS-CoV-2 IgG Ab Crossmatch 05/09/20 05/09/20 05/09/20 14:20 14:20 15:56 WBC RBC Hgb Hct MCV MCH MCHC RDW Lymph % (Auto) Lymph # (Auto) [place] # (Auto) Baso # (Auto) Seg Neutrophils % Seg Neuts % (Manual) Lymphocytes % (Manual) Nucleated RBC % Seg Neutrophils # Seg Neutrophils # Man Lymphocytes # (Manual) Monocytes # (Manual) Eosinophils # (Manual) PT INR APTT D-Dimer Heparin Anti-Xa Level ABG pH POC ABG pCO2 POC ABG pO2 57.3 L ABG pO2 ABG HCO3 ABG O2 Saturation ABG Base Excess ABG Hemoglobin ABG Oxyhemoglobin 86.3 L ABG Sodium 129.9 L ABG Potassium ABG Chloride ABG Glucose 146 H Oxyhemoglobin Carboxyhemoglobin Sodium Potassium Chloride Carbon Dioxide BUN Creatinine Glucose 143 H POC Glucose Lactic Acid Calcium Magnesium Ferritin 35867.0 H Total Bilirubin Direct Bilirubin AST ALT Alkaline Phosphatase Lactate Dehydrogenase 1953 H C-Reactive Protein 33.50 H Total Protein Albumin Triglycerides Lipase Arterial Blood Glucose 146 H Arterial Blood Ionized Calcium 3.9 L Urine WBC (Auto) Coronavirus (PCR) SARS-CoV-2 IgG Ab Crossmatch 05/10/20 05/10/20 05/10/20 10:32 10:32 18:50 WBC 15.4 H RBC Hgb Hct MCV 97 H MCH 33 H MCHC RDW 13.1 L Lymph % (Auto) Lymph # (Auto) [place] # (Auto) Baso # (Auto) Seg Neutrophils % Seg Neuts % (Manual) 89.0 H Lymphocytes % (Manual) 8.0 L Nucleated RBC % Seg Neutrophils # Seg Neutrophils # Man 13.7 H Lymphocytes # (Manual) Monocytes # (Manual) Eosinophils # (Manual) PT INR APTT D-Dimer Heparin Anti-Xa Level ABG pH POC ABG pCO2 POC ABG pO2 ABG pO2 ABG HCO3 ABG O2 Saturation ABG Base Excess ABG Hemoglobin ABG Oxyhemoglobin ABG Sodium ABG Potassium ABG Chloride ABG Glucose Oxyhemoglobin Carboxyhemoglobin Sodium 136 L Potassium Chloride 97.4 L Carbon Dioxide BUN 37 H Creatinine 1.7 H Glucose 209 H POC Glucose Lactic Acid Calcium Magnesium Ferritin > 2000.0 H Total Bilirubin Direct Bilirubin AST ALT Alkaline Phosphatase Lactate Dehydrogenase C-Reactive Protein Total Protein Albumin Triglycerides Lipase Arterial Blood Glucose Arterial Blood Ionized Calcium Urine WBC (Auto) Coronavirus (PCR) SARS-CoV-2 IgG Ab Crossmatch 05/10/20 05/10/20 05/10/20 18:50 19:00 Unknown WBC RBC Hgb Hct MCV MCH MCHC RDW Lymph % (Auto) Lymph # (Auto) [place] # (Auto) Baso # (Auto) Seg Neutrophils % Seg Neuts % (Manual) Lymphocytes % (Manual) Nucleated RBC % Seg Neutrophils # Seg Neutrophils # Man Lymphocytes # (Manual) Monocytes # (Manual) Eosinophils # (Manual) PT INR APTT D-Dimer > 75652 H Heparin Anti-Xa Level ABG pH POC ABG pCO2 POC ABG pO2 ABG pO2 ABG HCO3 ABG O2 Saturation ABG Base Excess ABG Hemoglobin ABG Oxyhemoglobin ABG Sodium ABG Potassium ABG Chloride ABG Glucose Oxyhemoglobin Carboxyhemoglobin Sodium Potassium Chloride Carbon Dioxide BUN Creatinine Glucose POC Glucose Lactic Acid Calcium Magnesium Ferritin Total Bilirubin Direct Bilirubin AST ALT Alkaline Phosphatase Lactate Dehydrogenase 1879 H C-Reactive Protein 24.80 H Total Protein Albumin Triglycerides Lipase Arterial Blood Glucose Arterial Blood Ionized Calcium Urine WBC (Auto) 11.0 H Coronavirus (PCR) SARS-CoV-2 IgG Ab Crossmatch 05/10/20 05/11/20 05/11/20 Unknown 07:30 07:30 WBC RBC Hgb Hct MCV MCH MCHC RDW Lymph % (Auto) Lymph # (Auto) [place] # (Auto) Baso # (Auto) Seg Neutrophils % Seg Neuts % (Manual) Lymphocytes % (Manual) Nucleated RBC % Seg Neutrophils # Seg Neutrophils # Man Lymphocytes # (Manual) Monocytes # (Manual) Eosinophils # (Manual) PT INR APTT D-Dimer > 2000 H Heparin Anti-Xa Level ABG pH POC ABG pCO2 POC ABG pO2 ABG pO2 ABG HCO3 ABG O2 Saturation ABG Base Excess ABG Hemoglobin ABG Oxyhemoglobin ABG Sodium ABG Potassium ABG Chloride ABG Glucose Oxyhemoglobin Carboxyhemoglobin Sodium Potassium Chloride 96.3 L Carbon Dioxide BUN 36 H Creatinine Glucose 161 H POC Glucose Lactic Acid Calcium 8.3 L Magnesium Ferritin Total Bilirubin 1.50 H Direct Bilirubin 0.6 H AST 178 H ALT 111 H Alkaline Phosphatase Lactate Dehydrogenase C-Reactive Protein Total Protein Albumin 3.0 L Triglycerides Lipase Arterial Blood Glucose Arterial Blood Ionized Calcium Urine WBC (Auto) Coronavirus (PCR) Positive A SARS-CoV-2 IgG Ab Crossmatch 05/11/20 05/11/20 05/11/20 07:30 07:30 07:30 WBC RBC Hgb Hct MCV MCH MCHC RDW Lymph % (Auto) Lymph # (Auto) [place] # (Auto) Baso # (Auto) Seg Neutrophils % Seg Neuts % (Manual) Lymphocytes % (Manual) Nucleated RBC % Seg Neutrophils # Seg Neutrophils # Man Lymphocytes # (Manual) Monocytes # (Manual) Eosinophils # (Manual) PT INR APTT D-Dimer Heparin Anti-Xa Level ABG pH POC ABG pCO2 POC ABG pO2 ABG pO2 ABG HCO3 ABG O2 Saturation ABG Base Excess ABG Hemoglobin ABG Oxyhemoglobin ABG Sodium ABG Potassium ABG Chloride ABG Glucose Oxyhemoglobin Carboxyhemoglobin Sodium Potassium Chloride Carbon Dioxide BUN Creatinine Glucose POC Glucose Lactic Acid Calcium Magnesium Ferritin 35122.0 H Total Bilirubin Direct Bilirubin AST ALT Alkaline Phosphatase Lactate Dehydrogenase 1523 H C-Reactive Protein 12.90 H Total Protein Albumin Triglycerides Lipase Arterial Blood Glucose Arterial Blood Ionized Calcium Urine WBC (Auto) Coronavirus (PCR) SARS-CoV-2 IgG Ab Reactive A Crossmatch 05/13/20 05/13/20 05/15/20 05:20 05:20 08:15 WBC RBC Hgb Hct MCV MCH MCHC RDW Lymph % (Auto) Lymph # (Auto) [place] # (Auto) Baso # (Auto) Seg Neutrophils % Seg Neuts % (Manual) Lymphocytes % (Manual) Nucleated RBC % Seg Neutrophils # Seg Neutrophils # Man Lymphocytes # (Manual) Monocytes # (Manual) Eosinophils # (Manual) PT INR APTT D-Dimer > 86957 H 5318.28 H Heparin Anti-Xa Level ABG pH POC ABG pCO2 POC ABG pO2 ABG pO2 ABG HCO3 ABG O2 Saturation ABG Base Excess ABG Hemoglobin ABG Oxyhemoglobin ABG Sodium ABG Potassium ABG Chloride ABG Glucose Oxyhemoglobin Carboxyhemoglobin Sodium Potassium Chloride Carbon Dioxide 32 H BUN 30 H Creatinine Glucose 156 H POC Glucose Lactic Acid Calcium Magnesium 2.60 H Ferritin Total Bilirubin 1.40 H Direct Bilirubin AST 121 H ALT 119 H Alkaline Phosphatase Lactate Dehydrogenase 957 H C-Reactive Protein 4.00 H Total Protein Albumin 3.0 L Triglycerides Lipase Arterial Blood Glucose Arterial Blood Ionized Calcium Urine WBC (Auto) Coronavirus (PCR) SARS-CoV-2 IgG Ab Crossmatch 05/15/20 05/15/20 05/15/20 08:15 08:15 08:15 WBC 12.4 H RBC Hgb Hct MCV 98 H MCH 33 H MCHC RDW Lymph % (Auto) 9.7 L Lymph # (Auto) [place] # (Auto) Baso # (Auto) Seg Neutrophils % 86.8 H Seg Neuts % (Manual) Lymphocytes % (Manual) Nucleated RBC % Seg Neutrophils # 10.8 H Seg Neutrophils # Man Lymphocytes # (Manual) Monocytes # (Manual) Eosinophils # (Manual) PT INR APTT D-Dimer Heparin Anti-Xa Level ABG pH POC ABG pCO2 POC ABG pO2 ABG pO2 ABG HCO3 ABG O2 Saturation ABG Base Excess ABG Hemoglobin ABG Oxyhemoglobin ABG Sodium ABG Potassium ABG Chloride ABG Glucose Oxyhemoglobin Carboxyhemoglobin Sodium Potassium Chloride 94.8 L Carbon Dioxide 32 H BUN 22 H Creatinine Glucose 115 H POC Glucose Lactic Acid Calcium 8.3 L Magnesium Ferritin 2494.0 H Total Bilirubin Direct Bilirubin AST 73 H ALT 121 H Alkaline Phosphatase Lactate Dehydrogenase 835 H C-Reactive Protein 3.40 H Total Protein 6.1 L Albumin 3.0 L Triglycerides Lipase Arterial Blood Glucose Arterial Blood Ionized Calcium Urine WBC (Auto) Coronavirus (PCR) SARS-CoV-2 IgG Ab Crossmatch 05/17/20 05/17/20 05/17/20 05:50 05:50 05:50 WBC RBC Hgb Hct MCV MCH MCHC RDW Lymph % (Auto) Lymph # (Auto) [place] # (Auto) Baso # (Auto) Seg Neutrophils % Seg Neuts % (Manual) Lymphocytes % (Manual) Nucleated RBC % Seg Neutrophils # Seg Neutrophils # Man Lymphocytes # (Manual) Monocytes # (Manual) Eosinophils # (Manual) PT INR APTT D-Dimer 2911.42 H Heparin Anti-Xa Level ABG pH POC ABG pCO2 POC ABG pO2 ABG pO2 ABG HCO3 ABG O2 Saturation ABG Base Excess ABG Hemoglobin ABG Oxyhemoglobin ABG Sodium ABG Potassium ABG Chloride ABG Glucose Oxyhemoglobin Carboxyhemoglobin Sodium 136 L Potassium Chloride 96.0 L Carbon Dioxide 34 H BUN 22 H Creatinine Glucose 140 H POC Glucose Lactic Acid Calcium Magnesium Ferritin 2082.0 H Total Bilirubin Direct Bilirubin AST ALT 75 H Alkaline Phosphatase Lactate Dehydrogenase 601 H C-Reactive Protein 2.70 H Total Protein Albumin 2.9 L Triglycerides Lipase Arterial Blood Glucose Arterial Blood Ionized Calcium Urine WBC (Auto) Coronavirus (PCR) SARS-CoV-2 IgG Ab Crossmatch 05/17/20 05/18/20 05/20/20 05:50 12:22 08:16 WBC RBC Hgb Hct MCV 98 H MCH 33 H MCHC RDW Lymph % (Auto) 8.0 L Lymph # (Auto) 0.8 L [place] # (Auto) Baso # (Auto) Seg Neutrophils % 89.3 H Seg Neuts % (Manual) Lymphocytes % (Manual) Nucleated RBC % Seg Neutrophils # 8.8 H Seg Neutrophils # Man Lymphocytes # (Manual) Monocytes # (Manual) Eosinophils # (Manual) PT INR APTT D-Dimer 1887.82 H Heparin Anti-Xa Level ABG pH POC ABG pCO2 POC ABG pO2 ABG pO2 ABG HCO3 ABG O2 Saturation ABG Base Excess ABG Hemoglobin ABG Oxyhemoglobin ABG Sodium ABG Potassium ABG Chloride ABG Glucose Oxyhemoglobin Carboxyhemoglobin Sodium Potassium Chloride Carbon Dioxide BUN Creatinine Glucose POC Glucose 178 H Lactic Acid Calcium Magnesium Ferritin Total Bilirubin Direct Bilirubin AST ALT Alkaline Phosphatase Lactate Dehydrogenase C-Reactive Protein Total Protein Albumin Triglycerides Lipase Arterial Blood Glucose Arterial Blood Ionized Calcium Urine WBC (Auto) Coronavirus (PCR) SARS-CoV-2 IgG Ab Crossmatch 05/20/20 05/20/20 05/21/20 08:16 08:16 21:10 WBC RBC Hgb Hct MCV MCH MCHC RDW Lymph % (Auto) Lymph # (Auto) [place] # (Auto) Baso # (Auto) Seg Neutrophils % Seg Neuts % (Manual) Lymphocytes % (Manual) Nucleated RBC % Seg Neutrophils # Seg Neutrophils # Man Lymphocytes # (Manual) Monocytes # (Manual) Eosinophils # (Manual) PT INR APTT D-Dimer Heparin Anti-Xa Level ABG pH 7.483 H POC ABG pCO2 POC ABG pO2 ABG pO2 50.0 L ABG HCO3 27.0 H ABG O2 Saturation 86.2 L ABG Base Excess 3.7 H ABG Hemoglobin ABG Oxyhemoglobin ABG Sodium ABG Potassium ABG Chloride ABG Glucose Oxyhemoglobin 84.2 L Carboxyhemoglobin Sodium Potassium Chloride Carbon Dioxide BUN Creatinine Glucose POC Glucose Lactic Acid Calcium Magnesium Ferritin 1960.0 H Total Bilirubin Direct Bilirubin AST ALT Alkaline Phosphatase Lactate Dehydrogenase 705 H C-Reactive Protein 3.10 H Total Protein Albumin Triglycerides Lipase Arterial Blood Glucose Arterial Blood Ionized Calcium Urine WBC (Auto) Coronavirus (PCR) SARS-CoV-2 IgG Ab Crossmatch 05/22/20 05/22/20 05/22/20 04:01 07:53 07:53 WBC 19.2 H RBC Hgb Hct MCV 98 H MCH 34 H MCHC RDW Lymph % (Auto) Lymph # (Auto) [place] # (Auto) Baso # (Auto) Seg Neutrophils % Seg Neuts % (Manual) 96.0 H Lymphocytes % (Manual) 1.0 L Nucleated RBC % Seg Neutrophils # Seg Neutrophils # Man 18.4 H Lymphocytes # (Manual) 0.2 L Monocytes # (Manual) Eosinophils # (Manual) PT INR APTT D-Dimer Heparin Anti-Xa Level ABG pH POC ABG pCO2 53.8 H POC ABG pO2 125.5 H ABG pO2 ABG HCO3 ABG O2 Saturation ABG Base Excess ABG Hemoglobin ABG Oxyhemoglobin ABG Sodium 131.8 L ABG Potassium 4.8 H ABG Chloride 94.0 L ABG Glucose 163 H Oxyhemoglobin Carboxyhemoglobin Sodium 131 L Potassium Chloride 93.4 L Carbon Dioxide BUN 40 H Creatinine Glucose 176 H POC Glucose Lactic Acid Calcium Magnesium 2.70 H Ferritin Total Bilirubin 1.80 H Direct Bilirubin AST 45 H ALT 116 H Alkaline Phosphatase 181 H Lactate Dehydrogenase C-Reactive Protein Total Protein Albumin 2.6 L Triglycerides Lipase Arterial Blood Glucose 163 H Arterial Blood Ionized Calcium 4.5 L Urine WBC (Auto) Coronavirus (PCR) SARS-CoV-2 IgG Ab Crossmatch 05/23/20 05/24/20 05/24/20 04:17 03:07 04:08 WBC RBC Hgb Hct MCV MCH MCHC RDW Lymph % (Auto) Lymph # (Auto) [place] # (Auto) Baso # (Auto) Seg Neutrophils % Seg Neuts % (Manual) Lymphocytes % (Manual) Nucleated RBC % Seg Neutrophils # Seg Neutrophils # Man Lymphocytes # (Manual) Monocytes # (Manual) Eosinophils # (Manual) PT INR APTT D-Dimer Heparin Anti-Xa Level ABG pH 7.328 L POC ABG pCO2 POC ABG pO2 ABG pO2 72.8 L 73.4 L ABG HCO3 31.0 H 34.0 H ABG O2 Saturation 93.5 L ABG Base Excess 3.5 H 7.7 H ABG Hemoglobin 13.3 L 12.1 L ABG Oxyhemoglobin ABG Sodium ABG Potassium ABG Chloride ABG Glucose Oxyhemoglobin 91.5 L 94.3 L Carboxyhemoglobin Sodium Potassium Chloride Carbon Dioxide BUN Creatinine Glucose POC Glucose 155 H Lactic Acid Calcium Magnesium Ferritin Total Bilirubin Direct Bilirubin AST ALT Alkaline Phosphatase Lactate Dehydrogenase C-Reactive Protein Total Protein Albumin Triglycerides Lipase Arterial Blood Glucose Arterial Blood Ionized Calcium Urine WBC (Auto) Coronavirus (PCR) SARS-CoV-2 IgG Ab Crossmatch 05/24/20 05/24/20 05/24/20 09:33 12:21 17:52 WBC RBC Hgb Hct MCV MCH MCHC RDW Lymph % (Auto) Lymph # (Auto) [place] # (Auto) Baso # (Auto) Seg Neutrophils % Seg Neuts % (Manual) Lymphocytes % (Manual) Nucleated RBC % Seg Neutrophils # Seg Neutrophils # Man Lymphocytes # (Manual) Monocytes # (Manual) Eosinophils # (Manual) PT INR APTT D-Dimer Heparin Anti-Xa Level ABG pH POC ABG pCO2 POC ABG pO2 ABG pO2 ABG HCO3 ABG O2 Saturation ABG Base Excess ABG Hemoglobin ABG Oxyhemoglobin ABG Sodium ABG Potassium ABG Chloride ABG Glucose Oxyhemoglobin Carboxyhemoglobin Sodium Potassium Chloride Carbon Dioxide 34 H D BUN 28 H Creatinine 0.7 L Glucose 168 H POC Glucose 173 H 164 H Lactic Acid Calcium Magnesium Ferritin Total Bilirubin Direct Bilirubin AST ALT Alkaline Phosphatase Lactate Dehydrogenase C-Reactive Protein Total Protein Albumin Triglycerides Lipase Arterial Blood Glucose Arterial Blood Ionized Calcium Urine WBC (Auto) Coronavirus (PCR) SARS-CoV-2 IgG Ab Crossmatch 05/24/20 05/25/20 05/25/20 23:47 04:29 05:46 WBC RBC Hgb Hct MCV MCH MCHC RDW Lymph % (Auto) Lymph # (Auto) [place] # (Auto) Baso # (Auto) Seg Neutrophils % Seg Neuts % (Manual) Lymphocytes % (Manual) Nucleated RBC % Seg Neutrophils # Seg Neutrophils # Man Lymphocytes # (Manual) Monocytes # (Manual) Eosinophils # (Manual) PT INR APTT D-Dimer Heparin Anti-Xa Level ABG pH POC ABG pCO2 68.6 H POC ABG pO2 ABG pO2 ABG HCO3 ABG O2 Saturation ABG Base Excess ABG Hemoglobin ABG Oxyhemoglobin ABG Sodium ABG Potassium 4.7 H ABG Chloride ABG Glucose 226 H Oxyhemoglobin Carboxyhemoglobin Sodium Potassium Chloride Carbon Dioxide BUN Creatinine Glucose POC Glucose 171 H 201 H Lactic Acid Calcium Magnesium Ferritin Total Bilirubin Direct Bilirubin AST ALT Alkaline Phosphatase Lactate Dehydrogenase C-Reactive Protein Total Protein Albumin Triglycerides Lipase Arterial Blood Glucose 226 H Arterial Blood Ionized Calcium Urine WBC (Auto) Coronavirus (PCR) SARS-CoV-2 IgG Ab Crossmatch 05/25/20 05/25/20 05/25/20 08:37 08:37 12:38 WBC 12.0 H RBC 3.64 L Hgb Hct MCV 99 H MCH 33 H MCHC RDW Lymph % (Auto) Lymph # (Auto) [place] # (Auto) Baso # (Auto) Seg Neutrophils % Seg Neuts % (Manual) Lymphocytes % (Manual) Nucleated RBC % Seg Neutrophils # Seg Neutrophils # Man Lymphocytes # (Manual) Monocytes # (Manual) Eosinophils # (Manual) PT INR APTT D-Dimer Heparin Anti-Xa Level ABG pH POC ABG pCO2 POC ABG pO2 ABG pO2 ABG HCO3 ABG O2 Saturation ABG Base Excess ABG Hemoglobin ABG Oxyhemoglobin ABG Sodium ABG Potassium ABG Chloride ABG Glucose Oxyhemoglobin Carboxyhemoglobin Sodium Potassium Chloride 97.3 L Carbon Dioxide 35 H BUN 25 H Creatinine 0.7 L Glucose 191 H POC Glucose 182 H Lactic Acid Calcium Magnesium Ferritin Total Bilirubin Direct Bilirubin AST ALT Alkaline Phosphatase Lactate Dehydrogenase C-Reactive Protein Total Protein Albumin Triglycerides Lipase Arterial Blood Glucose Arterial Blood Ionized Calcium Urine WBC (Auto) Coronavirus (PCR) SARS-CoV-2 IgG Ab Crossmatch 05/25/20 05/26/20 05/26/20 18:16 00:06 04:50 WBC RBC Hgb Hct MCV MCH MCHC RDW Lymph % (Auto) Lymph # (Auto) [place] # (Auto) Baso # (Auto) Seg Neutrophils % Seg Neuts % (Manual) Lymphocytes % (Manual) Nucleated RBC % Seg Neutrophils # Seg Neutrophils # Man Lymphocytes # (Manual) Monocytes # (Manual) Eosinophils # (Manual) PT INR APTT D-Dimer Heparin Anti-Xa Level ABG pH POC ABG pCO2 POC ABG pO2 ABG pO2 221.5 H ABG HCO3 40.4 H ABG O2 Saturation 99.3 H ABG Base Excess 12.8 H ABG Hemoglobin 10.4 L ABG Oxyhemoglobin ABG Sodium ABG Potassium ABG Chloride ABG Glucose Oxyhemoglobin Carboxyhemoglobin Sodium Potassium Chloride Carbon Dioxide BUN Creatinine Glucose POC Glucose 176 H 152 H Lactic Acid Calcium Magnesium Ferritin Total Bilirubin Direct Bilirubin AST ALT Alkaline Phosphatase Lactate Dehydrogenase C-Reactive Protein Total Protein Albumin Triglycerides Lipase Arterial Blood Glucose Arterial Blood Ionized Calcium Urine WBC (Auto) Coronavirus (PCR) SARS-CoV-2 IgG Ab Crossmatch 05/26/20 05/26/20 05/26/20 06:11 07:51 07:51 WBC 13.4 H RBC 3.64 L Hgb Hct MCV 98 H MCH 33 H MCHC RDW Lymph % (Auto) Lymph # (Auto) [place] # (Auto) Baso # (Auto) Seg Neutrophils % Seg Neuts % (Manual) Lymphocytes % (Manual) Nucleated RBC % Seg Neutrophils # Seg Neutrophils # Man Lymphocytes # (Manual) Monocytes # (Manual) Eosinophils # (Manual) PT INR APTT D-Dimer Heparin Anti-Xa Level ABG pH POC ABG pCO2 POC ABG pO2 ABG pO2 ABG HCO3 ABG O2 Saturation ABG Base Excess ABG Hemoglobin ABG Oxyhemoglobin ABG Sodium ABG Potassium ABG Chloride ABG Glucose Oxyhemoglobin Carboxyhemoglobin Sodium Potassium Chloride 96.6 L Carbon Dioxide 39 H BUN 29 H Creatinine 0.7 L Glucose 174 H POC Glucose 165 H Lactic Acid Calcium Magnesium Ferritin Total Bilirubin Direct Bilirubin AST ALT Alkaline Phosphatase Lactate Dehydrogenase C-Reactive Protein Total Protein Albumin Triglycerides Lipase Arterial Blood Glucose Arterial Blood Ionized Calcium Urine WBC (Auto) Coronavirus (PCR) SARS-CoV-2 IgG Ab Crossmatch 05/26/20 05/27/20 05/27/20 23:23 03:43 05:29 WBC RBC Hgb Hct MCV MCH MCHC RDW Lymph % (Auto) Lymph # (Auto) [place] # (Auto) Baso # (Auto) Seg Neutrophils % Seg Neuts % (Manual) Lymphocytes % (Manual) Nucleated RBC % Seg Neutrophils # Seg Neutrophils # Man Lymphocytes # (Manual) Monocytes # (Manual) Eosinophils # (Manual) PT INR APTT D-Dimer Heparin Anti-Xa Level ABG pH 7.480 H POC ABG pCO2 52.4 H POC ABG pO2 61.4 L ABG pO2 ABG HCO3 ABG O2 Saturation ABG Base Excess ABG Hemoglobin ABG Oxyhemoglobin ABG Sodium 134.9 L ABG Potassium ABG Chloride 95.0 L ABG Glucose 221 H Oxyhemoglobin Carboxyhemoglobin Sodium Potassium Chloride Carbon Dioxide BUN Creatinine Glucose POC Glucose 169 H 227 H Lactic Acid Calcium Magnesium Ferritin Total Bilirubin Direct Bilirubin AST ALT Alkaline Phosphatase Lactate Dehydrogenase C-Reactive Protein Total Protein Albumin Triglycerides Lipase Arterial Blood Glucose 221 H Arterial Blood Ionized Calcium 4.5 L Urine WBC (Auto) Coronavirus (PCR) SARS-CoV-2 IgG Ab Crossmatch 05/27/20 05/27/20 05/27/20 07:19 12:18 13:50 WBC RBC Hgb Hct MCV MCH MCHC RDW Lymph % (Auto) Lymph # (Auto) [place] # (Auto) Baso # (Auto) Seg Neutrophils % Seg Neuts % (Manual) Lymphocytes % (Manual) Nucleated RBC % Seg Neutrophils # Seg Neutrophils # Man Lymphocytes # (Manual) Monocytes # (Manual) Eosinophils # (Manual) PT INR APTT D-Dimer Heparin Anti-Xa Level ABG pH POC ABG pCO2 POC ABG pO2 ABG pO2 ABG HCO3 ABG O2 Saturation ABG Base Excess ABG Hemoglobin ABG Oxyhemoglobin ABG Sodium ABG Potassium ABG Chloride ABG Glucose Oxyhemoglobin Carboxyhemoglobin Sodium Potassium Chloride Carbon Dioxide BUN Creatinine Glucose POC Glucose 114 H 148 H Lactic Acid Calcium Magnesium Ferritin Total Bilirubin Direct Bilirubin AST ALT Alkaline Phosphatase Lactate Dehydrogenase C-Reactive Protein Total Protein Albumin Triglycerides 247 H Lipase Arterial Blood Glucose Arterial Blood Ionized Calcium Urine WBC (Auto) Coronavirus (PCR) SARS-CoV-2 IgG Ab Crossmatch 05/28/20 05/28/20 05/28/20 00:13 04:16 05:22 WBC RBC Hgb Hct MCV MCH MCHC RDW Lymph % (Auto) Lymph # (Auto) [place] # (Auto) Baso # (Auto) Seg Neutrophils % Seg Neuts % (Manual) Lymphocytes % (Manual) Nucleated RBC % Seg Neutrophils # Seg Neutrophils # Man Lymphocytes # (Manual) Monocytes # (Manual) Eosinophils # (Manual) PT INR APTT D-Dimer Heparin Anti-Xa Level ABG pH POC ABG pCO2 64.4 H POC ABG pO2 60.5 L ABG pO2 ABG HCO3 ABG O2 Saturation ABG Base Excess ABG Hemoglobin ABG Oxyhemoglobin ABG Sodium ABG Potassium ABG Chloride 95.0 L ABG Glucose 209 H Oxyhemoglobin Carboxyhemoglobin Sodium Potassium Chloride Carbon Dioxide BUN Creatinine Glucose POC Glucose 155 H 186 H Lactic Acid Calcium Magnesium Ferritin Total Bilirubin Direct Bilirubin AST ALT Alkaline Phosphatase Lactate Dehydrogenase C-Reactive Protein Total Protein Albumin Triglycerides Lipase Arterial Blood Glucose 209 H Arterial Blood Ionized Calcium Urine WBC (Auto) Coronavirus (PCR) SARS-CoV-2 IgG Ab Crossmatch 05/28/20 05/28/20 05/29/20 12:45 17:39 00:37 WBC RBC Hgb Hct MCV MCH MCHC RDW Lymph % (Auto) Lymph # (Auto) [place] # (Auto) Baso # (Auto) Seg Neutrophils % Seg Neuts % (Manual) Lymphocytes % (Manual) Nucleated RBC % Seg Neutrophils # Seg Neutrophils # Man Lymphocytes # (Manual) Monocytes # (Manual) Eosinophils # (Manual) PT INR APTT D-Dimer Heparin Anti-Xa Level ABG pH POC ABG pCO2 POC ABG pO2 ABG pO2 ABG HCO3 ABG O2 Saturation ABG Base Excess ABG Hemoglobin ABG Oxyhemoglobin ABG Sodium ABG Potassium ABG Chloride ABG Glucose Oxyhemoglobin Carboxyhemoglobin Sodium Potassium Chloride Carbon Dioxide BUN Creatinine Glucose POC Glucose 143 H 164 H 221 H Lactic Acid Calcium Magnesium Ferritin Total Bilirubin Direct Bilirubin AST ALT Alkaline Phosphatase Lactate Dehydrogenase C-Reactive Protein Total Protein Albumin Triglycerides Lipase Arterial Blood Glucose Arterial Blood Ionized Calcium Urine WBC (Auto) Coronavirus (PCR) SARS-CoV-2 IgG Ab Crossmatch 05/29/20 05/29/20 05/29/20 04:15 05:33 12:34 WBC RBC Hgb Hct MCV MCH MCHC RDW Lymph % (Auto) Lymph # (Auto) [place] # (Auto) Baso # (Auto) Seg Neutrophils % Seg Neuts % (Manual) Lymphocytes % (Manual) Nucleated RBC % Seg Neutrophils # Seg Neutrophils # Man Lymphocytes # (Manual) Monocytes # (Manual) Eosinophils # (Manual) PT INR APTT D-Dimer Heparin Anti-Xa Level ABG pH 7.463 H POC ABG pCO2 56.3 H POC ABG pO2 81.2 L ABG pO2 ABG HCO3 ABG O2 Saturation ABG Base Excess ABG Hemoglobin ABG Oxyhemoglobin ABG Sodium ABG Potassium ABG Chloride 96.0 L ABG Glucose 194 H Oxyhemoglobin Carboxyhemoglobin Sodium Potassium Chloride Carbon Dioxide BUN Creatinine Glucose POC Glucose 133 H 221 H Lactic Acid Calcium Magnesium Ferritin Total Bilirubin Direct Bilirubin AST ALT Alkaline Phosphatase Lactate Dehydrogenase C-Reactive Protein Total Protein Albumin Triglycerides Lipase Arterial Blood Glucose 194 H Arterial Blood Ionized Calcium 4.5 L Urine WBC (Auto) Coronavirus (PCR) SARS-CoV-2 IgG Ab Crossmatch 05/29/20 05/30/20 05/30/20 18:07 00:12 05:38 WBC RBC Hgb Hct MCV MCH MCHC RDW Lymph % (Auto) Lymph # (Auto) [place] # (Auto) Baso # (Auto) Seg Neutrophils % Seg Neuts % (Manual) Lymphocytes % (Manual) Nucleated RBC % Seg Neutrophils # Seg Neutrophils # Man Lymphocytes # (Manual) Monocytes # (Manual) Eosinophils # (Manual) PT INR APTT D-Dimer Heparin Anti-Xa Level ABG pH POC ABG pCO2 POC ABG pO2 ABG pO2 ABG HCO3 ABG O2 Saturation ABG Base Excess ABG Hemoglobin ABG Oxyhemoglobin ABG Sodium ABG Potassium ABG Chloride ABG Glucose Oxyhemoglobin Carboxyhemoglobin Sodium Potassium Chloride Carbon Dioxide BUN Creatinine Glucose POC Glucose 162 H 190 H 208 H Lactic Acid Calcium Magnesium Ferritin Total Bilirubin Direct Bilirubin AST ALT Alkaline Phosphatase Lactate Dehydrogenase C-Reactive Protein Total Protein Albumin Triglycerides Lipase Arterial Blood Glucose Arterial Blood Ionized Calcium Urine WBC (Auto) Coronavirus (PCR) SARS-CoV-2 IgG Ab Crossmatch 05/30/20 05/30/20 05/30/20 09:30 11:35 11:54 WBC 12.4 H RBC 3.48 L Hgb 11.3 L Hct 34.6 L MCV 99 H MCH 33 H MCHC RDW Lymph % (Auto) Lymph # (Auto) [place] # (Auto) Baso # (Auto) Seg Neutrophils % Seg Neuts % (Manual) Lymphocytes % (Manual) Nucleated RBC % Seg Neutrophils # Seg Neutrophils # Man Lymphocytes # (Manual) Monocytes # (Manual) Eosinophils # (Manual) PT INR APTT D-Dimer Heparin Anti-Xa Level ABG pH 7.455 H POC ABG pCO2 57.5 H POC ABG pO2 81.5 L ABG pO2 ABG HCO3 ABG O2 Saturation ABG Base Excess ABG Hemoglobin ABG Oxyhemoglobin ABG Sodium ABG Potassium ABG Chloride 96.0 L ABG Glucose 204 H Oxyhemoglobin Carboxyhemoglobin Sodium Potassium Chloride Carbon Dioxide BUN Creatinine Glucose POC Glucose 183 H Lactic Acid Calcium Magnesium Ferritin Total Bilirubin Direct Bilirubin AST ALT Alkaline Phosphatase Lactate Dehydrogenase C-Reactive Protein Total Protein Albumin Triglycerides Lipase Arterial Blood Glucose 204 H Arterial Blood Ionized Calcium Urine WBC (Auto) Coronavirus (PCR) SARS-CoV-2 IgG Ab Crossmatch 05/30/20 05/31/20 05/31/20 18:01 00:10 03:22 WBC RBC Hgb Hct MCV MCH MCHC RDW Lymph % (Auto) Lymph # (Auto) [place] # (Auto) Baso # (Auto) Seg Neutrophils % Seg Neuts % (Manual) Lymphocytes % (Manual) Nucleated RBC % Seg Neutrophils # Seg Neutrophils # Man Lymphocytes # (Manual) Monocytes # (Manual) Eosinophils # (Manual) PT INR APTT D-Dimer Heparin Anti-Xa Level ABG pH POC ABG pCO2 60.4 H POC ABG pO2 71.5 L ABG pO2 ABG HCO3 ABG O2 Saturation ABG Base Excess ABG Hemoglobin ABG Oxyhemoglobin ABG Sodium ABG Potassium ABG Chloride 96.0 L ABG Glucose 169 H Oxyhemoglobin Carboxyhemoglobin Sodium Potassium Chloride Carbon Dioxide BUN Creatinine Glucose POC Glucose 184 H 135 H Lactic Acid Calcium Magnesium Ferritin Total Bilirubin Direct Bilirubin AST ALT Alkaline Phosphatase Lactate Dehydrogenase C-Reactive Protein Total Protein Albumin Triglycerides Lipase Arterial Blood Glucose 169 H Arterial Blood Ionized Calcium 4.5 L Urine WBC (Auto) Coronavirus (PCR) SARS-CoV-2 IgG Ab Crossmatch 05/31/20 05/31/20 05/31/20 05:24 11:18 14:41 WBC RBC Hgb Hct MCV MCH MCHC RDW Lymph % (Auto) Lymph # (Auto) [place] # (Auto) Baso # (Auto) Seg Neutrophils % Seg Neuts % (Manual) Lymphocytes % (Manual) Nucleated RBC % Seg Neutrophils # Seg Neutrophils # Man Lymphocytes # (Manual) Monocytes # (Manual) Eosinophils # (Manual) PT INR APTT D-Dimer Heparin Anti-Xa Level ABG pH POC ABG pCO2 POC ABG pO2 ABG pO2 ABG HCO3 ABG O2 Saturation ABG Base Excess ABG Hemoglobin ABG Oxyhemoglobin ABG Sodium ABG Potassium ABG Chloride ABG Glucose Oxyhemoglobin Carboxyhemoglobin Sodium Potassium Chloride 96.8 L Carbon Dioxide 37 H BUN 31 H Creatinine 0.6 L Glucose 213 H POC Glucose 164 H 208 H Lactic Acid Calcium Magnesium Ferritin Total Bilirubin Direct Bilirubin AST ALT Alkaline Phosphatase Lactate Dehydrogenase C-Reactive Protein Total Protein Albumin Triglycerides Lipase Arterial Blood Glucose Arterial Blood Ionized Calcium Urine WBC (Auto) Coronavirus (PCR) SARS-CoV-2 IgG Ab Crossmatch 05/31/20 05/31/20 06/01/20 17:37 23:47 03:48 WBC RBC Hgb Hct MCV MCH MCHC RDW Lymph % (Auto) Lymph # (Auto) [place] # (Auto) Baso # (Auto) Seg Neutrophils % Seg Neuts % (Manual) Lymphocytes % (Manual) Nucleated RBC % Seg Neutrophils # Seg Neutrophils # Man Lymphocytes # (Manual) Monocytes # (Manual) Eosinophils # (Manual) PT INR APTT D-Dimer Heparin Anti-Xa Level ABG pH POC ABG pCO2 59.7 H POC ABG pO2 73.9 L ABG pO2 ABG HCO3 ABG O2 Saturation ABG Base Excess ABG Hemoglobin ABG Oxyhemoglobin ABG Sodium ABG Potassium ABG Chloride 95.0 L ABG Glucose 256 H Oxyhemoglobin Carboxyhemoglobin Sodium Potassium Chloride Carbon Dioxide BUN Creatinine Glucose POC Glucose 168 H 178 H Lactic Acid Calcium Magnesium Ferritin Total Bilirubin Direct Bilirubin AST ALT Alkaline Phosphatase Lactate Dehydrogenase C-Reactive Protein Total Protein Albumin Triglycerides Lipase Arterial Blood Glucose 256 H Arterial Blood Ionized Calcium Urine WBC (Auto) Coronavirus (PCR) SARS-CoV-2 IgG Ab Crossmatch 06/01/20 06/01/20 06/01/20 05:01 07:47 07:47 WBC 14.4 H RBC 3.46 L Hgb 11.1 L Hct 34.3 L MCV 99 H MCH MCHC RDW Lymph % (Auto) Lymph # (Auto) [place] # (Auto) Baso # (Auto) Seg Neutrophils % Seg Neuts % (Manual) 86.0 H Lymphocytes % (Manual) 9.0 L Nucleated RBC % Seg Neutrophils # Seg Neutrophils # Man 12.4 H Lymphocytes # (Manual) Monocytes # (Manual) Eosinophils # (Manual) PT INR APTT D-Dimer Heparin Anti-Xa Level ABG pH POC ABG pCO2 POC ABG pO2 ABG pO2 ABG HCO3 ABG O2 Saturation ABG Base Excess ABG Hemoglobin ABG Oxyhemoglobin ABG Sodium ABG Potassium ABG Chloride ABG Glucose Oxyhemoglobin Carboxyhemoglobin Sodium Potassium Chloride Carbon Dioxide BUN Creatinine Glucose POC Glucose 197 H Lactic Acid Calcium Magnesium Ferritin Total Bilirubin Direct Bilirubin AST ALT Alkaline Phosphatase Lactate Dehydrogenase C-Reactive Protein Total Protein Albumin Triglycerides 244 H Lipase Arterial Blood Glucose Arterial Blood Ionized Calcium Urine WBC (Auto) Coronavirus (PCR) SARS-CoV-2 IgG Ab Crossmatch 06/01/20 06/01/20 06/01/20 07:47 11:46 18:15 WBC RBC Hgb Hct MCV MCH MCHC RDW Lymph % (Auto) Lymph # (Auto) [place] # (Auto) Baso # (Auto) Seg Neutrophils % Seg Neuts % (Manual) Lymphocytes % (Manual) Nucleated RBC % Seg Neutrophils # Seg Neutrophils # Man Lymphocytes # (Manual) Monocytes # (Manual) Eosinophils # (Manual) PT INR APTT D-Dimer Heparin Anti-Xa Level ABG pH POC ABG pCO2 POC ABG pO2 ABG pO2 ABG HCO3 ABG O2 Saturation ABG Base Excess ABG Hemoglobin ABG Oxyhemoglobin ABG Sodium ABG Potassium ABG Chloride ABG Glucose Oxyhemoglobin Carboxyhemoglobin Sodium Potassium Chloride 95.4 L Carbon Dioxide 35 H BUN 30 H Creatinine 0.5 L Glucose 214 H POC Glucose 181 H 221 H Lactic Acid Calcium Magnesium Ferritin Total Bilirubin Direct Bilirubin AST 54 H ALT 235 H Alkaline Phosphatase Lactate Dehydrogenase C-Reactive Protein Total Protein Albumin 2.9 L Triglycerides Lipase Arterial Blood Glucose Arterial Blood Ionized Calcium Urine WBC (Auto) Coronavirus (PCR) SARS-CoV-2 IgG Ab Crossmatch 06/01/20 06/02/20 06/02/20 23:12 04:00 05:31 WBC RBC Hgb Hct MCV MCH MCHC RDW Lymph % (Auto) Lymph # (Auto) [place] # (Auto) Baso # (Auto) Seg Neutrophils % Seg Neuts % (Manual) Lymphocytes % (Manual) Nucleated RBC % Seg Neutrophils # Seg Neutrophils # Man Lymphocytes # (Manual) Monocytes # (Manual) Eosinophils # (Manual) PT INR APTT D-Dimer Heparin Anti-Xa Level ABG pH 7.465 H POC ABG pCO2 POC ABG pO2 ABG pO2 203.4 H ABG HCO3 41.2 H ABG O2 Saturation 99.3 H ABG Base Excess 15.1 H ABG Hemoglobin 11.5 L ABG Oxyhemoglobin ABG Sodium ABG Potassium ABG Chloride ABG Glucose Oxyhemoglobin Carboxyhemoglobin Sodium Potassium Chloride Carbon Dioxide BUN Creatinine Glucose POC Glucose 197 H 184 H Lactic Acid Calcium Magnesium Ferritin Total Bilirubin Direct Bilirubin AST ALT Alkaline Phosphatase Lactate Dehydrogenase C-Reactive Protein Total Protein Albumin Triglycerides Lipase Arterial Blood Glucose Arterial Blood Ionized Calcium Urine WBC (Auto) Coronavirus (PCR) SARS-CoV-2 IgG Ab Crossmatch 06/02/20 06/02/20 06/02/20 11:49 18:06 23:00 WBC RBC Hgb Hct MCV MCH MCHC RDW Lymph % (Auto) Lymph # (Auto) [place] # (Auto) Baso # (Auto) Seg Neutrophils % Seg Neuts % (Manual) Lymphocytes % (Manual) Nucleated RBC % Seg Neutrophils # Seg Neutrophils # Man Lymphocytes # (Manual) Monocytes # (Manual) Eosinophils # (Manual) PT INR APTT D-Dimer Heparin Anti-Xa Level ABG pH POC ABG pCO2 POC ABG pO2 ABG pO2 ABG HCO3 ABG O2 Saturation ABG Base Excess ABG Hemoglobin ABG Oxyhemoglobin ABG Sodium ABG Potassium ABG Chloride ABG Glucose Oxyhemoglobin Carboxyhemoglobin Sodium Potassium Chloride Carbon Dioxide BUN Creatinine Glucose POC Glucose 195 H 177 H 228 H Lactic Acid Calcium Magnesium Ferritin Total Bilirubin Direct Bilirubin AST ALT Alkaline Phosphatase Lactate Dehydrogenase C-Reactive Protein Total Protein Albumin Triglycerides Lipase Arterial Blood Glucose Arterial Blood Ionized Calcium Urine WBC (Auto) Coronavirus (PCR) SARS-CoV-2 IgG Ab Crossmatch 06/03/20 06/03/20 06/03/20 03:58 05:19 12:21 WBC RBC Hgb Hct MCV MCH MCHC RDW Lymph % (Auto) Lymph # (Auto) [place] # (Auto) Baso # (Auto) Seg Neutrophils % Seg Neuts % (Manual) Lymphocytes % (Manual) Nucleated RBC % Seg Neutrophils # Seg Neutrophils # Man Lymphocytes # (Manual) Monocytes # (Manual) Eosinophils # (Manual) PT INR APTT D-Dimer Heparin Anti-Xa Level ABG pH POC ABG pCO2 POC ABG pO2 ABG pO2 171.0 H ABG HCO3 42.8 H ABG O2 Saturation ABG Base Excess 15.6 H ABG Hemoglobin 12.3 L ABG Oxyhemoglobin ABG Sodium ABG Potassium ABG Chloride ABG Glucose Oxyhemoglobin Carboxyhemoglobin Sodium Potassium Chloride Carbon Dioxide BUN Creatinine Glucose POC Glucose 122 H 207 H Lactic Acid Calcium Magnesium Ferritin Total Bilirubin Direct Bilirubin AST ALT Alkaline Phosphatase Lactate Dehydrogenase C-Reactive Protein Total Protein Albumin Triglycerides Lipase Arterial Blood Glucose Arterial Blood Ionized Calcium Urine WBC (Auto) Coronavirus (PCR) SARS-CoV-2 IgG Ab Crossmatch 06/03/20 06/03/20 06/04/20 17:27 23:50 03:55 WBC RBC Hgb Hct MCV MCH MCHC RDW Lymph % (Auto) Lymph # (Auto) [place] # (Auto) Baso # (Auto) Seg Neutrophils % Seg Neuts % (Manual) Lymphocytes % (Manual) Nucleated RBC % Seg Neutrophils # Seg Neutrophils # Man Lymphocytes # (Manual) Monocytes # (Manual) Eosinophils # (Manual) PT INR APTT D-Dimer Heparin Anti-Xa Level ABG pH POC ABG pCO2 POC ABG pO2 ABG pO2 117.2 H ABG HCO3 42.4 H ABG O2 Saturation ABG Base Excess 15.3 H ABG Hemoglobin 10.5 L ABG Oxyhemoglobin ABG Sodium ABG Potassium ABG Chloride ABG Glucose Oxyhemoglobin Carboxyhemoglobin Sodium Potassium Chloride Carbon Dioxide BUN Creatinine Glucose POC Glucose 157 H 214 H Lactic Acid Calcium Magnesium Ferritin Total Bilirubin Direct Bilirubin AST ALT Alkaline Phosphatase Lactate Dehydrogenase C-Reactive Protein Total Protein Albumin Triglycerides Lipase Arterial Blood Glucose Arterial Blood Ionized Calcium Urine WBC (Auto) Coronavirus (PCR) SARS-CoV-2 IgG Ab Crossmatch 06/04/20 06/04/20 06/04/20 05:49 11:41 17:30 WBC RBC Hgb Hct MCV MCH MCHC RDW Lymph % (Auto) Lymph # (Auto) [place] # (Auto) Baso # (Auto) Seg Neutrophils % Seg Neuts % (Manual) Lymphocytes % (Manual) Nucleated RBC % Seg Neutrophils # Seg Neutrophils # Man Lymphocytes # (Manual) Monocytes # (Manual) Eosinophils # (Manual) PT INR APTT D-Dimer Heparin Anti-Xa Level ABG pH POC ABG pCO2 POC ABG pO2 ABG pO2 ABG HCO3 ABG O2 Saturation ABG Base Excess ABG Hemoglobin ABG Oxyhemoglobin ABG Sodium ABG Potassium ABG Chloride ABG Glucose Oxyhemoglobin Carboxyhemoglobin Sodium Potassium Chloride Carbon Dioxide BUN Creatinine Glucose POC Glucose 149 H 233 H 156 H Lactic Acid Calcium Magnesium Ferritin Total Bilirubin Direct Bilirubin AST ALT Alkaline Phosphatase Lactate Dehydrogenase C-Reactive Protein Total Protein Albumin Triglycerides Lipase Arterial Blood Glucose Arterial Blood Ionized Calcium Urine WBC (Auto) Coronavirus (PCR) SARS-CoV-2 IgG Ab Crossmatch 06/04/20 06/04/20 06/04/20 19:01 20:53 23:41 WBC RBC 3.18 L Hgb 10.8 L Hct 31.8 L MCV 100 H MCH 34 H MCHC RDW Lymph % (Auto) Lymph # (Auto) [place] # (Auto) Baso # (Auto) Seg Neutrophils % Seg Neuts % (Manual) 86.0 H Lymphocytes % (Manual) 10.0 L Nucleated RBC % 1.0 H Seg Neutrophils # Seg Neutrophils # Man 8.5 H Lymphocytes # (Manual) 1.0 L Monocytes # (Manual) Eosinophils # (Manual) PT INR APTT D-Dimer Heparin Anti-Xa Level ABG pH POC ABG pCO2 POC ABG pO2 ABG pO2 ABG HCO3 ABG O2 Saturation ABG Base Excess ABG Hemoglobin ABG Oxyhemoglobin ABG Sodium ABG Potassium ABG Chloride ABG Glucose Oxyhemoglobin Carboxyhemoglobin Sodium Potassium 3.4 L D Chloride 96.5 L Carbon Dioxide 41 H* BUN 27 H Creatinine 0.5 L Glucose 173 H POC Glucose 217 H Lactic Acid Calcium Magnesium Ferritin Total Bilirubin Direct Bilirubin AST ALT Alkaline Phosphatase Lactate Dehydrogenase C-Reactive Protein Total Protein Albumin Triglycerides Lipase Arterial Blood Glucose Arterial Blood Ionized Calcium Urine WBC (Auto) Coronavirus (PCR) SARS-CoV-2 IgG Ab Crossmatch 06/05/20 06/05/20 06/05/20 06:05 11:54 12:35 WBC RBC Hgb Hct MCV MCH MCHC RDW Lymph % (Auto) Lymph # (Auto) [place] # (Auto) Baso # (Auto) Seg Neutrophils % Seg Neuts % (Manual) Lymphocytes % (Manual) Nucleated RBC % Seg Neutrophils # Seg Neutrophils # Man Lymphocytes # (Manual) Monocytes # (Manual) Eosinophils # (Manual) PT INR APTT D-Dimer Heparin Anti-Xa Level ABG pH POC ABG pCO2 POC ABG pO2 ABG pO2 127.9 H ABG HCO3 41.1 H ABG O2 Saturation ABG Base Excess 13.0 H ABG Hemoglobin 13.4 L ABG Oxyhemoglobin ABG Sodium ABG Potassium ABG Chloride ABG Glucose Oxyhemoglobin Carboxyhemoglobin Sodium Potassium Chloride Carbon Dioxide BUN Creatinine Glucose POC Glucose 137 H 211 H Lactic Acid Calcium Magnesium Ferritin Total Bilirubin Direct Bilirubin AST ALT Alkaline Phosphatase Lactate Dehydrogenase C-Reactive Protein Total Protein Albumin Triglycerides Lipase Arterial Blood Glucose Arterial Blood Ionized Calcium Urine WBC (Auto) Coronavirus (PCR) SARS-CoV-2 IgG Ab Crossmatch 06/05/20 06/05/20 06/06/20 17:03 23:49 04:42 WBC RBC Hgb Hct MCV MCH MCHC RDW Lymph % (Auto) Lymph # (Auto) [place] # (Auto) Baso # (Auto) Seg Neutrophils % Seg Neuts % (Manual) Lymphocytes % (Manual) Nucleated RBC % Seg Neutrophils # Seg Neutrophils # Man Lymphocytes # (Manual) Monocytes # (Manual) Eosinophils # (Manual) PT INR APTT D-Dimer Heparin Anti-Xa Level ABG pH POC ABG pCO2 56.1 H POC ABG pO2 52.5 L ABG pO2 ABG HCO3 ABG O2 Saturation ABG Base Excess ABG Hemoglobin 11.7 L ABG Oxyhemoglobin ABG Sodium ABG Potassium 3.3 L ABG Chloride 95.0 L ABG Glucose 156 H Oxyhemoglobin Carboxyhemoglobin Sodium Potassium Chloride Carbon Dioxide BUN Creatinine Glucose POC Glucose 159 H 194 H Lactic Acid Calcium Magnesium Ferritin Total Bilirubin Direct Bilirubin AST ALT Alkaline Phosphatase Lactate Dehydrogenase C-Reactive Protein Total Protein Albumin Triglycerides Lipase Arterial Blood Glucose 156 H Arterial Blood Ionized Calcium Urine WBC (Auto) Coronavirus (PCR) SARS-CoV-2 IgG Ab Crossmatch 06/06/20 06/06/20 06/06/20 05:57 12:06 17:38 WBC RBC Hgb Hct MCV MCH MCHC RDW Lymph % (Auto) Lymph # (Auto) [place] # (Auto) Baso # (Auto) Seg Neutrophils % Seg Neuts % (Manual) Lymphocytes % (Manual) Nucleated RBC % Seg Neutrophils # Seg Neutrophils # Man Lymphocytes # (Manual) Monocytes # (Manual) Eosinophils # (Manual) PT INR APTT D-Dimer Heparin Anti-Xa Level ABG pH POC ABG pCO2 POC ABG pO2 ABG pO2 ABG HCO3 ABG O2 Saturation ABG Base Excess ABG Hemoglobin ABG Oxyhemoglobin ABG Sodium ABG Potassium ABG Chloride ABG Glucose Oxyhemoglobin Carboxyhemoglobin Sodium Potassium Chloride Carbon Dioxide BUN Creatinine Glucose POC Glucose 144 H 230 H 162 H Lactic Acid Calcium Magnesium Ferritin Total Bilirubin Direct Bilirubin AST ALT Alkaline Phosphatase Lactate Dehydrogenase C-Reactive Protein Total Protein Albumin Triglycerides Lipase Arterial Blood Glucose Arterial Blood Ionized Calcium Urine WBC (Auto) Coronavirus (PCR) SARS-CoV-2 IgG Ab Crossmatch 06/06/20 06/07/20 06/07/20 23:50 04:34 06:03 WBC RBC Hgb Hct MCV MCH MCHC RDW Lymph % (Auto) Lymph # (Auto) [place] # (Auto) Baso # (Auto) Seg Neutrophils % Seg Neuts % (Manual) Lymphocytes % (Manual) Nucleated RBC % Seg Neutrophils # Seg Neutrophils # Man Lymphocytes # (Manual) Monocytes # (Manual) Eosinophils # (Manual) PT INR APTT D-Dimer Heparin Anti-Xa Level ABG pH 7.511 H POC ABG pCO2 53.5 H POC ABG pO2 114.5 H ABG pO2 ABG HCO3 ABG O2 Saturation ABG Base Excess ABG Hemoglobin 9.4 L ABG Oxyhemoglobin ABG Sodium 134.5 L ABG Potassium ABG Chloride 94.0 L ABG Glucose 186 H Oxyhemoglobin Carboxyhemoglobin Sodium Potassium Chloride Carbon Dioxide BUN Creatinine Glucose POC Glucose 181 H 155 H Lactic Acid Calcium Magnesium Ferritin Total Bilirubin Direct Bilirubin AST ALT Alkaline Phosphatase Lactate Dehydrogenase C-Reactive Protein Total Protein Albumin Triglycerides Lipase Arterial Blood Glucose 186 H Arterial Blood Ionized Calcium 4.5 L Urine WBC (Auto) Coronavirus (PCR) SARS-CoV-2 IgG Ab Crossmatch 06/07/20 06/07/20 06/07/20 13:41 14:58 14:58 WBC RBC 2.72 L Hgb 9.3 L Hct 27.2 L MCV 100 H MCH 34 H MCHC RDW Lymph % (Auto) Lymph # (Auto) [place] # (Auto) Baso # (Auto) Seg Neutrophils % Seg Neuts % (Manual) Lymphocytes % (Manual) Nucleated RBC % Seg Neutrophils # Seg Neutrophils # Man Lymphocytes # (Manual) Monocytes # (Manual) Eosinophils # (Manual) PT INR APTT D-Dimer Heparin Anti-Xa Level ABG pH POC ABG pCO2 POC ABG pO2 ABG pO2 ABG HCO3 ABG O2 Saturation ABG Base Excess ABG Hemoglobin ABG Oxyhemoglobin ABG Sodium ABG Potassium ABG Chloride ABG Glucose Oxyhemoglobin Carboxyhemoglobin Sodium Potassium Chloride 93.5 L Carbon Dioxide 39 H BUN 22 H Creatinine 0.4 L Glucose 188 H POC Glucose 201 H Lactic Acid Calcium Magnesium Ferritin Total Bilirubin Direct Bilirubin AST 61 H ALT 273 H Alkaline Phosphatase Lactate Dehydrogenase C-Reactive Protein Total Protein 5.9 L Albumin 2.7 L Triglycerides Lipase Arterial Blood Glucose Arterial Blood Ionized Calcium Urine WBC (Auto) Coronavirus (PCR) SARS-CoV-2 IgG Ab Crossmatch 06/07/20 06/08/20 06/08/20 23:18 05:31 12:07 WBC RBC Hgb Hct MCV MCH MCHC RDW Lymph % (Auto) Lymph # (Auto) [place] # (Auto) Baso # (Auto) Seg Neutrophils % Seg Neuts % (Manual) Lymphocytes % (Manual) Nucleated RBC % Seg Neutrophils # Seg Neutrophils # Man Lymphocytes # (Manual) Monocytes # (Manual) Eosinophils # (Manual) PT INR APTT D-Dimer Heparin Anti-Xa Level ABG pH POC ABG pCO2 POC ABG pO2 ABG pO2 ABG HCO3 ABG O2 Saturation ABG Base Excess ABG Hemoglobin ABG Oxyhemoglobin ABG Sodium ABG Potassium ABG Chloride ABG Glucose Oxyhemoglobin Carboxyhemoglobin Sodium Potassium Chloride Carbon Dioxide BUN Creatinine Glucose POC Glucose 214 H 129 H 179 H Lactic Acid Calcium Magnesium Ferritin Total Bilirubin Direct Bilirubin AST ALT Alkaline Phosphatase Lactate Dehydrogenase C-Reactive Protein Total Protein Albumin Triglycerides Lipase Arterial Blood Glucose Arterial Blood Ionized Calcium Urine WBC (Auto) Coronavirus (PCR) SARS-CoV-2 IgG Ab Crossmatch 06/08/20 06/08/20 06/09/20 18:18 23:35 05:42 WBC RBC Hgb Hct MCV MCH MCHC RDW Lymph % (Auto) Lymph # (Auto) [place] # (Auto) Baso # (Auto) Seg Neutrophils % Seg Neuts % (Manual) Lymphocytes % (Manual) Nucleated RBC % Seg Neutrophils # Seg Neutrophils # Man Lymphocytes # (Manual) Monocytes # (Manual) Eosinophils # (Manual) PT INR APTT D-Dimer Heparin Anti-Xa Level ABG pH POC ABG pCO2 POC ABG pO2 ABG pO2 ABG HCO3 ABG O2 Saturation ABG Base Excess ABG Hemoglobin ABG Oxyhemoglobin ABG Sodium ABG Potassium ABG Chloride ABG Glucose Oxyhemoglobin Carboxyhemoglobin Sodium Potassium Chloride Carbon Dioxide BUN Creatinine Glucose POC Glucose 172 H 177 H 137 H Lactic Acid Calcium Magnesium Ferritin Total Bilirubin Direct Bilirubin AST ALT Alkaline Phosphatase Lactate Dehydrogenase C-Reactive Protein Total Protein Albumin Triglycerides Lipase Arterial Blood Glucose Arterial Blood Ionized Calcium Urine WBC (Auto) Coronavirus (PCR) SARS-CoV-2 IgG Ab Crossmatch 06/09/20 06/09/20 06/09/20 06:20 07:55 07:55 WBC 12.4 H RBC 3.26 L Hgb 11.1 L Hct 33.4 L D MCV 102 H MCH 34 H MCHC RDW Lymph % (Auto) Lymph # (Auto) [place] # (Auto) Baso # (Auto) Seg Neutrophils % Seg Neuts % (Manual) Lymphocytes % (Manual) Nucleated RBC % Seg Neutrophils # Seg Neutrophils # Man Lymphocytes # (Manual) Monocytes # (Manual) Eosinophils # (Manual) PT INR APTT D-Dimer Heparin Anti-Xa Level ABG pH 7.466 H POC ABG pCO2 50.7 H POC ABG pO2 53.0 L ABG pO2 ABG HCO3 ABG O2 Saturation ABG Base Excess ABG Hemoglobin ABG Oxyhemoglobin ABG Sodium ABG Potassium 2.9 L ABG Chloride 93.0 L ABG Glucose 138 H Oxyhemoglobin Carboxyhemoglobin Sodium Potassium 3.0 L Chloride 92.3 L Carbon Dioxide 37 H BUN 21 H Creatinine 0.6 L Glucose 120 H POC Glucose Lactic Acid Calcium Magnesium Ferritin Total Bilirubin Direct Bilirubin AST ALT Alkaline Phosphatase Lactate Dehydrogenase C-Reactive Protein Total Protein Albumin Triglycerides Lipase Arterial Blood Glucose 138 H Arterial Blood Ionized Calcium 4.5 L Urine WBC (Auto) Coronavirus (PCR) SARS-CoV-2 IgG Ab Crossmatch 06/09/20 06/09/20 06/10/20 11:22 18:32 04:46 WBC RBC Hgb Hct MCV MCH MCHC RDW Lymph % (Auto) Lymph # (Auto) [place] # (Auto) Baso # (Auto) Seg Neutrophils % Seg Neuts % (Manual) Lymphocytes % (Manual) Nucleated RBC % Seg Neutrophils # Seg Neutrophils # Man Lymphocytes # (Manual) Monocytes # (Manual) Eosinophils # (Manual) PT INR APTT D-Dimer Heparin Anti-Xa Level ABG pH 7.501 H POC ABG pCO2 POC ABG pO2 126.5 H ABG pO2 ABG HCO3 ABG O2 Saturation ABG Base Excess ABG Hemoglobin 10.3 L ABG Oxyhemoglobin ABG Sodium ABG Potassium ABG Chloride ABG Glucose 220 H Oxyhemoglobin Carboxyhemoglobin Sodium Potassium Chloride Carbon Dioxide BUN Creatinine Glucose POC Glucose 117 H 121 H Lactic Acid Calcium Magnesium Ferritin Total Bilirubin Direct Bilirubin AST ALT Alkaline Phosphatase Lactate Dehydrogenase C-Reactive Protein Total Protein Albumin Triglycerides Lipase Arterial Blood Glucose 220 H Arterial Blood Ionized Calcium Urine WBC (Auto) Coronavirus (PCR) SARS-CoV-2 IgG Ab Crossmatch 06/10/20 06/10/20 06/10/20 05:30 09:38 12:03 WBC RBC Hgb Hct MCV MCH MCHC RDW Lymph % (Auto) Lymph # (Auto) [place] # (Auto) Baso # (Auto) Seg Neutrophils % Seg Neuts % (Manual) Lymphocytes % (Manual) Nucleated RBC % Seg Neutrophils # Seg Neutrophils # Man Lymphocytes # (Manual) Monocytes # (Manual) Eosinophils # (Manual) PT INR APTT D-Dimer Heparin Anti-Xa Level ABG pH POC ABG pCO2 POC ABG pO2 ABG pO2 ABG HCO3 ABG O2 Saturation ABG Base Excess ABG Hemoglobin ABG Oxyhemoglobin ABG Sodium ABG Potassium ABG Chloride ABG Glucose Oxyhemoglobin Carboxyhemoglobin Sodium Potassium Chloride Carbon Dioxide BUN Creatinine Glucose POC Glucose 181 H 204 H Lactic Acid Calcium Magnesium Ferritin Total Bilirubin Direct Bilirubin AST ALT Alkaline Phosphatase Lactate Dehydrogenase C-Reactive Protein Total Protein Albumin Triglycerides 738 H Lipase Arterial Blood Glucose Arterial Blood Ionized Calcium Urine WBC (Auto) Coronavirus (PCR) SARS-CoV-2 IgG Ab Crossmatch 06/10/20 06/11/20 06/11/20 17:17 00:04 04:38 WBC RBC Hgb Hct MCV MCH MCHC RDW Lymph % (Auto) Lymph # (Auto) [place] # (Auto) Baso # (Auto) Seg Neutrophils % Seg Neuts % (Manual) Lymphocytes % (Manual) Nucleated RBC % Seg Neutrophils # Seg Neutrophils # Man Lymphocytes # (Manual) Monocytes # (Manual) Eosinophils # (Manual) PT INR APTT D-Dimer Heparin Anti-Xa Level ABG pH 7.479 H POC ABG pCO2 POC ABG pO2 76.7 L ABG pO2 ABG HCO3 ABG O2 Saturation ABG Base Excess ABG Hemoglobin 9.8 L ABG Oxyhemoglobin ABG Sodium 135.8 L ABG Potassium ABG Chloride ABG Glucose 238 H Oxyhemoglobin Carboxyhemoglobin Sodium Potassium Chloride Carbon Dioxide BUN Creatinine Glucose POC Glucose 156 H 178 H Lactic Acid Calcium Magnesium Ferritin Total Bilirubin Direct Bilirubin AST ALT Alkaline Phosphatase Lactate Dehydrogenase C-Reactive Protein Total Protein Albumin Triglycerides Lipase Arterial Blood Glucose 238 H Arterial Blood Ionized Calcium Urine WBC (Auto) Coronavirus (PCR) SARS-CoV-2 IgG Ab Crossmatch 06/11/20 06/11/20 06/11/20 05:21 06:52 11:50 WBC RBC Hgb Hct MCV MCH MCHC RDW Lymph % (Auto) Lymph # (Auto) [place] # (Auto) Baso # (Auto) Seg Neutrophils % Seg Neuts % (Manual) Lymphocytes % (Manual) Nucleated RBC % Seg Neutrophils # Seg Neutrophils # Man Lymphocytes # (Manual) Monocytes # (Manual) Eosinophils # (Manual) PT INR APTT D-Dimer Heparin Anti-Xa Level ABG pH POC ABG pCO2 POC ABG pO2 ABG pO2 ABG HCO3 ABG O2 Saturation ABG Base Excess ABG Hemoglobin ABG Oxyhemoglobin ABG Sodium ABG Potassium ABG Chloride ABG Glucose Oxyhemoglobin Carboxyhemoglobin Sodium Potassium Chloride Carbon Dioxide BUN Creatinine Glucose POC Glucose 215 H 187 H Lactic Acid Calcium Magnesium Ferritin Total Bilirubin Direct Bilirubin AST ALT Alkaline Phosphatase Lactate Dehydrogenase C-Reactive Protein Total Protein Albumin Triglycerides 331 H Lipase Arterial Blood Glucose Arterial Blood Ionized Calcium Urine WBC (Auto) Coronavirus (PCR) SARS-CoV-2 IgG Ab Crossmatch 06/11/20 06/11/20 06/12/20 17:49 23:35 04:52 WBC RBC Hgb Hct MCV MCH MCHC RDW Lymph % (Auto) Lymph # (Auto) [place] # (Auto) Baso # (Auto) Seg Neutrophils % Seg Neuts % (Manual) Lymphocytes % (Manual) Nucleated RBC % Seg Neutrophils # Seg Neutrophils # Man Lymphocytes # (Manual) Monocytes # (Manual) Eosinophils # (Manual) PT INR APTT D-Dimer Heparin Anti-Xa Level ABG pH 7.486 H POC ABG pCO2 POC ABG pO2 ABG pO2 ABG HCO3 ABG O2 Saturation ABG Base Excess ABG Hemoglobin 9.4 L ABG Oxyhemoglobin ABG Sodium ABG Potassium 3.2 L ABG Chloride ABG Glucose 209 H Oxyhemoglobin Carboxyhemoglobin Sodium Potassium Chloride Carbon Dioxide BUN Creatinine Glucose POC Glucose 211 H 200 H Lactic Acid Calcium Magnesium Ferritin Total Bilirubin Direct Bilirubin AST ALT Alkaline Phosphatase Lactate Dehydrogenase C-Reactive Protein Total Protein Albumin Triglycerides Lipase Arterial Blood Glucose 209 H Arterial Blood Ionized Calcium Urine WBC (Auto) Coronavirus (PCR) SARS-CoV-2 IgG Ab Crossmatch 06/12/20 06/12/20 06/12/20 05:13 11:47 18:33 WBC RBC Hgb Hct MCV MCH MCHC RDW Lymph % (Auto) Lymph # (Auto) [place] # (Auto) Baso # (Auto) Seg Neutrophils % Seg Neuts % (Manual) Lymphocytes % (Manual) Nucleated RBC % Seg Neutrophils # Seg Neutrophils # Man Lymphocytes # (Manual) Monocytes # (Manual) Eosinophils # (Manual) PT INR APTT D-Dimer Heparin Anti-Xa Level ABG pH POC ABG pCO2 POC ABG pO2 ABG pO2 ABG HCO3 ABG O2 Saturation ABG Base Excess ABG Hemoglobin ABG Oxyhemoglobin ABG Sodium ABG Potassium ABG Chloride ABG Glucose Oxyhemoglobin Carboxyhemoglobin Sodium Potassium Chloride Carbon Dioxide BUN Creatinine Glucose POC Glucose 174 H 214 H 194 H Lactic Acid Calcium Magnesium Ferritin Total Bilirubin Direct Bilirubin AST ALT Alkaline Phosphatase Lactate Dehydrogenase C-Reactive Protein Total Protein Albumin Triglycerides Lipase Arterial Blood Glucose Arterial Blood Ionized Calcium Urine WBC (Auto) Coronavirus (PCR) SARS-CoV-2 IgG Ab Crossmatch 06/12/20 06/13/20 06/13/20 23:49 05:41 12:30 WBC RBC Hgb Hct MCV MCH MCHC RDW Lymph % (Auto) Lymph # (Auto) [place] # (Auto) Baso # (Auto) Seg Neutrophils % Seg Neuts % (Manual) Lymphocytes % (Manual) Nucleated RBC % Seg Neutrophils # Seg Neutrophils # Man Lymphocytes # (Manual) Monocytes # (Manual) Eosinophils # (Manual) PT INR APTT D-Dimer Heparin Anti-Xa Level ABG pH POC ABG pCO2 POC ABG pO2 ABG pO2 ABG HCO3 ABG O2 Saturation ABG Base Excess ABG Hemoglobin ABG Oxyhemoglobin ABG Sodium ABG Potassium ABG Chloride ABG Glucose Oxyhemoglobin Carboxyhemoglobin Sodium Potassium Chloride Carbon Dioxide BUN Creatinine Glucose POC Glucose 160 H 150 H 181 H Lactic Acid Calcium Magnesium Ferritin Total Bilirubin Direct Bilirubin AST ALT Alkaline Phosphatase Lactate Dehydrogenase C-Reactive Protein Total Protein Albumin Triglycerides Lipase Arterial Blood Glucose Arterial Blood Ionized Calcium Urine WBC (Auto) Coronavirus (PCR) SARS-CoV-2 IgG Ab Crossmatch 06/13/20 06/13/20 06/13/20 14:14 17:48 23:27 WBC 12.8 H RBC 2.33 L Hgb 8.0 L Hct 23.3 L MCV 100 H MCH 34 H MCHC RDW 15.7 H Lymph % (Auto) Lymph # (Auto) [place] # (Auto) Baso # (Auto) Seg Neutrophils % Seg Neuts % (Manual) 85.0 H Lymphocytes % (Manual) 10.0 L Nucleated RBC % Seg Neutrophils # Seg Neutrophils # Man 10.9 H Lymphocytes # (Manual) Monocytes # (Manual) Eosinophils # (Manual) PT INR APTT D-Dimer Heparin Anti-Xa Level ABG pH POC ABG pCO2 POC ABG pO2 ABG pO2 ABG HCO3 ABG O2 Saturation ABG Base Excess ABG Hemoglobin ABG Oxyhemoglobin ABG Sodium ABG Potassium ABG Chloride ABG Glucose Oxyhemoglobin Carboxyhemoglobin Sodium Potassium Chloride Carbon Dioxide BUN Creatinine Glucose POC Glucose 173 H 154 H Lactic Acid Calcium Magnesium Ferritin Total Bilirubin Direct Bilirubin AST ALT Alkaline Phosphatase Lactate Dehydrogenase C-Reactive Protein Total Protein Albumin Triglycerides Lipase Arterial Blood Glucose Arterial Blood Ionized Calcium Urine WBC (Auto) Coronavirus (PCR) SARS-CoV-2 IgG Ab Crossmatch 06/14/20 06/14/20 06/14/20 03:58 05:21 07:15 WBC 26.2 H RBC 2.97 L Hgb 9.7 L Hct 29.9 L D MCV 101 H MCH 33 H MCHC RDW 15.3 H Lymph % (Auto) Lymph # (Auto) [place] # (Auto) Baso # (Auto) Seg Neutrophils % Seg Neuts % (Manual) 79.0 H Lymphocytes % (Manual) 5.0 L Nucleated RBC % 3.0 H Seg Neutrophils # Seg Neutrophils # Man 20.7 H Lymphocytes # (Manual) Monocytes # (Manual) 1.3 H Eosinophils # (Manual) PT INR APTT D-Dimer Heparin Anti-Xa Level ABG pH POC ABG pCO2 51.5 H POC ABG pO2 70.0 L ABG pO2 ABG HCO3 ABG O2 Saturation ABG Base Excess ABG Hemoglobin 10.1 L ABG Oxyhemoglobin ABG Sodium 131.5 L ABG Potassium 3.1 L ABG Chloride 93.0 L ABG Glucose 188 H Oxyhemoglobin Carboxyhemoglobin Sodium Potassium Chloride Carbon Dioxide BUN Creatinine Glucose POC Glucose 147 H Lactic Acid Calcium Magnesium Ferritin Total Bilirubin Direct Bilirubin AST ALT Alkaline Phosphatase Lactate Dehydrogenase C-Reactive Protein Total Protein Albumin Triglycerides Lipase Arterial Blood Glucose 188 H Arterial Blood Ionized Calcium Urine WBC (Auto) Coronavirus (PCR) SARS-CoV-2 IgG Ab Crossmatch 06/14/20 06/14/20 06/14/20 07:15 11:30 11:50 WBC RBC Hgb Hct MCV MCH MCHC RDW Lymph % (Auto) Lymph # (Auto) [place] # (Auto) Baso # (Auto) Seg Neutrophils % Seg Neuts % (Manual) Lymphocytes % (Manual) Nucleated RBC % Seg Neutrophils # Seg Neutrophils # Man Lymphocytes # (Manual) Monocytes # (Manual) Eosinophils # (Manual) PT INR APTT D-Dimer Heparin Anti-Xa Level ABG pH POC ABG pCO2 POC ABG pO2 ABG pO2 ABG HCO3 ABG O2 Saturation ABG Base Excess ABG Hemoglobin ABG Oxyhemoglobin ABG Sodium ABG Potassium ABG Chloride ABG Glucose Oxyhemoglobin Carboxyhemoglobin Sodium 135 L Potassium 3.5 L Chloride 90.4 L Carbon Dioxide 38 H BUN Creatinine 0.5 L Glucose 190 H POC Glucose 176 H Lactic Acid Calcium Magnesium Ferritin 1496.0 H Total Bilirubin Direct Bilirubin AST ALT 81 H Alkaline Phosphatase Lactate Dehydrogenase C-Reactive Protein Total Protein Albumin 2.9 L Triglycerides Lipase Arterial Blood Glucose Arterial Blood Ionized Calcium Urine WBC (Auto) Coronavirus (PCR) SARS-CoV-2 IgG Ab Crossmatch 06/14/20 06/15/20 06/15/20 23:31 04:00 05:00 WBC RBC Hgb Hct MCV MCH MCHC RDW Lymph % (Auto) Lymph # (Auto) [place] # (Auto) Baso # (Auto) Seg Neutrophils % Seg Neuts % (Manual) Lymphocytes % (Manual) Nucleated RBC % Seg Neutrophils # Seg Neutrophils # Man Lymphocytes # (Manual) Monocytes # (Manual) Eosinophils # (Manual) PT INR APTT D-Dimer Heparin Anti-Xa Level ABG pH POC ABG pCO2 POC ABG pO2 ABG pO2 ABG HCO3 ABG O2 Saturation ABG Base Excess ABG Hemoglobin ABG Oxyhemoglobin ABG Sodium ABG Potassium ABG Chloride ABG Glucose Oxyhemoglobin Carboxyhemoglobin Sodium 133 L Potassium Chloride 91.1 L Carbon Dioxide 34 H BUN Creatinine 0.4 L Glucose 159 H POC Glucose 200 H Lactic Acid Calcium Magnesium Ferritin Total Bilirubin 2.00 H Direct Bilirubin AST 47 H ALT 77 H Alkaline Phosphatase Lactate Dehydrogenase C-Reactive Protein Total Protein Albumin 2.6 L Triglycerides 152 H Lipase Arterial Blood Glucose Arterial Blood Ionized Calcium Urine WBC (Auto) Coronavirus (PCR) SARS-CoV-2 IgG Ab Crossmatch 06/15/20 06/15/20 06/15/20 05:35 06:27 11:38 WBC RBC Hgb Hct MCV MCH MCHC RDW Lymph % (Auto) Lymph # (Auto) [place] # (Auto) Baso # (Auto) Seg Neutrophils % Seg Neuts % (Manual) Lymphocytes % (Manual) Nucleated RBC % Seg Neutrophils # Seg Neutrophils # Man Lymphocytes # (Manual) Monocytes # (Manual) Eosinophils # (Manual) PT INR APTT D-Dimer Heparin Anti-Xa Level ABG pH POC ABG pCO2 61.0 H POC ABG pO2 67.9 L ABG pO2 ABG HCO3 ABG O2 Saturation ABG Base Excess ABG Hemoglobin 10.4 L ABG Oxyhemoglobin ABG Sodium 132.7 L ABG Potassium 3.3 L ABG Chloride 92.0 L ABG Glucose 158 H Oxyhemoglobin Carboxyhemoglobin Sodium Potassium Chloride Carbon Dioxide BUN Creatinine Glucose POC Glucose 148 H 197 H Lactic Acid Calcium Magnesium Ferritin Total Bilirubin Direct Bilirubin AST ALT Alkaline Phosphatase Lactate Dehydrogenase C-Reactive Protein Total Protein Albumin Triglycerides Lipase Arterial Blood Glucose 158 H Arterial Blood Ionized Calcium Urine WBC (Auto) Coronavirus (PCR) SARS-CoV-2 IgG Ab Crossmatch 06/15/20 06/15/20 06/16/20 17:29 Unknown 00:01 WBC 20.7 H RBC 2.57 L Hgb 8.9 L Hct 25.8 L MCV 101 H MCH 35 H MCHC 35 H RDW 16.0 H Lymph % (Auto) Lymph # (Auto) [place] # (Auto) Baso # (Auto) Seg Neutrophils % Seg Neuts % (Manual) 83.0 H Lymphocytes % (Manual) 8.0 L Nucleated RBC % Seg Neutrophils # Seg Neutrophils # Man 17.2 H Lymphocytes # (Manual) Monocytes # (Manual) 1.2 H Eosinophils # (Manual) PT INR APTT D-Dimer Heparin Anti-Xa Level ABG pH POC ABG pCO2 POC ABG pO2 ABG pO2 ABG HCO3 ABG O2 Saturation ABG Base Excess ABG Hemoglobin ABG Oxyhemoglobin ABG Sodium ABG Potassium ABG Chloride ABG Glucose Oxyhemoglobin Carboxyhemoglobin Sodium Potassium Chloride Carbon Dioxide BUN Creatinine Glucose POC Glucose 231 H 257 H Lactic Acid Calcium Magnesium Ferritin Total Bilirubin Direct Bilirubin AST ALT Alkaline Phosphatase Lactate Dehydrogenase C-Reactive Protein Total Protein Albumin Triglycerides Lipase Arterial Blood Glucose Arterial Blood Ionized Calcium Urine WBC (Auto) Coronavirus (PCR) SARS-CoV-2 IgG Ab Crossmatch 06/16/20 06/16/20 06/16/20 04:00 04:00 05:22 WBC 13.8 H RBC 2.03 L Hgb 7.6 L Hct 20.7 L MCV 102 H MCH 37 H MCHC 37 H RDW 16.2 H Lymph % (Auto) 4.4 L Lymph # (Auto) 0.6 L [place] # (Auto) Baso # (Auto) Seg Neutrophils % Seg Neuts % (Manual) Lymphocytes % (Manual) Nucleated RBC % Seg Neutrophils # 12.7 H Seg Neutrophils # Man Lymphocytes # (Manual) Monocytes # (Manual) Eosinophils # (Manual) PT INR APTT D-Dimer Heparin Anti-Xa Level ABG pH POC ABG pCO2 POC ABG pO2 ABG pO2 ABG HCO3 ABG O2 Saturation ABG Base Excess ABG Hemoglobin ABG Oxyhemoglobin ABG Sodium ABG Potassium ABG Chloride ABG Glucose Oxyhemoglobin Carboxyhemoglobin Sodium 130 L Potassium Chloride 88.9 L Carbon Dioxide 36 H BUN Creatinine 0.3 L Glucose 276 H POC Glucose 250 H Lactic Acid Calcium Magnesium Ferritin Total Bilirubin Direct Bilirubin AST ALT Alkaline Phosphatase Lactate Dehydrogenase C-Reactive Protein Total Protein Albumin Triglycerides Lipase Arterial Blood Glucose Arterial Blood Ionized Calcium Urine WBC (Auto) Coronavirus (PCR) SARS-CoV-2 IgG Ab Crossmatch 06/16/20 06/16/20 06/17/20 12:44 18:18 00:39 WBC RBC Hgb Hct MCV MCH MCHC RDW Lymph % (Auto) Lymph # (Auto) [place] # (Auto) Baso # (Auto) Seg Neutrophils % Seg Neuts % (Manual) Lymphocytes % (Manual) Nucleated RBC % Seg Neutrophils # Seg Neutrophils # Man Lymphocytes # (Manual) Monocytes # (Manual) Eosinophils # (Manual) PT INR APTT D-Dimer Heparin Anti-Xa Level ABG pH POC ABG pCO2 POC ABG pO2 ABG pO2 ABG HCO3 ABG O2 Saturation ABG Base Excess ABG Hemoglobin ABG Oxyhemoglobin ABG Sodium ABG Potassium ABG Chloride ABG Glucose Oxyhemoglobin Carboxyhemoglobin Sodium Potassium Chloride Carbon Dioxide BUN Creatinine Glucose POC Glucose 279 H 239 H 247 H Lactic Acid Calcium Magnesium Ferritin Total Bilirubin Direct Bilirubin AST ALT Alkaline Phosphatase Lactate Dehydrogenase C-Reactive Protein Total Protein Albumin Triglycerides Lipase Arterial Blood Glucose Arterial Blood Ionized Calcium Urine WBC (Auto) Coronavirus (PCR) SARS-CoV-2 IgG Ab Crossmatch 06/17/20 06/17/20 06/17/20 03:40 04:08 10:54 WBC RBC Hgb Hct MCV MCH MCHC RDW Lymph % (Auto) Lymph # (Auto) [place] # (Auto) Baso # (Auto) Seg Neutrophils % Seg Neuts % (Manual) Lymphocytes % (Manual) Nucleated RBC % Seg Neutrophils # Seg Neutrophils # Man Lymphocytes # (Manual) Monocytes # (Manual) Eosinophils # (Manual) PT INR APTT D-Dimer Heparin Anti-Xa Level ABG pH POC ABG pCO2 65.7 H POC ABG pO2 ABG pO2 ABG HCO3 ABG O2 Saturation ABG Base Excess ABG Hemoglobin 11.9 L ABG Oxyhemoglobin ABG Sodium ABG Potassium ABG Chloride 93.0 L ABG Glucose 244 H Oxyhemoglobin Carboxyhemoglobin Sodium Potassium Chloride Carbon Dioxide BUN Creatinine Glucose POC Glucose 221 H 248 H Lactic Acid Calcium Magnesium Ferritin Total Bilirubin Direct Bilirubin AST ALT Alkaline Phosphatase Lactate Dehydrogenase C-Reactive Protein Total Protein Albumin Triglycerides Lipase Arterial Blood Glucose 244 H Arterial Blood Ionized Calcium Urine WBC (Auto) Coronavirus (PCR) SARS-CoV-2 IgG Ab Crossmatch 06/17/20 06/17/20 06/17/20 17:47 23:11 23:29 WBC RBC Hgb Hct MCV MCH MCHC RDW Lymph % (Auto) Lymph # (Auto) [place] # (Auto) Baso # (Auto) Seg Neutrophils % Seg Neuts % (Manual) Lymphocytes % (Manual) Nucleated RBC % Seg Neutrophils # Seg Neutrophils # Man Lymphocytes # (Manual) Monocytes # (Manual) Eosinophils # (Manual) PT INR APTT D-Dimer Heparin Anti-Xa Level ABG pH POC ABG pCO2 85.2 H POC ABG pO2 48.4 L ABG pO2 ABG HCO3 ABG O2 Saturation ABG Base Excess ABG Hemoglobin 8.0 L ABG Oxyhemoglobin ABG Sodium ABG Potassium ABG Chloride 95.0 L ABG Glucose 292 H Oxyhemoglobin Carboxyhemoglobin Sodium Potassium Chloride Carbon Dioxide BUN Creatinine Glucose POC Glucose 245 H 252 H Lactic Acid Calcium Magnesium Ferritin Total Bilirubin Direct Bilirubin AST ALT Alkaline Phosphatase Lactate Dehydrogenase C-Reactive Protein Total Protein Albumin Triglycerides Lipase Arterial Blood Glucose 292 H Arterial Blood Ionized Calcium Urine WBC (Auto) Coronavirus (PCR) SARS-CoV-2 IgG Ab Crossmatch 06/18/20 06/18/20 06/18/20 03:14 05:34 11:47 WBC RBC Hgb Hct MCV MCH MCHC RDW Lymph % (Auto) Lymph # (Auto) [place] # (Auto) Baso # (Auto) Seg Neutrophils % Seg Neuts % (Manual) Lymphocytes % (Manual) Nucleated RBC % Seg Neutrophils # Seg Neutrophils # Man Lymphocytes # (Manual) Monocytes # (Manual) Eosinophils # (Manual) PT INR APTT D-Dimer Heparin Anti-Xa Level ABG pH POC ABG pCO2 65.4 H POC ABG pO2 160.7 H ABG pO2 ABG HCO3 ABG O2 Saturation ABG Base Excess ABG Hemoglobin 7.8 L ABG Oxyhemoglobin ABG Sodium ABG Potassium ABG Chloride 95.0 L ABG Glucose 251 H Oxyhemoglobin Carboxyhemoglobin Sodium Potassium Chloride Carbon Dioxide BUN Creatinine Glucose POC Glucose 243 H 263 H Lactic Acid Calcium Magnesium Ferritin Total Bilirubin Direct Bilirubin AST ALT Alkaline Phosphatase Lactate Dehydrogenase C-Reactive Protein Total Protein Albumin Triglycerides Lipase Arterial Blood Glucose 251 H Arterial Blood Ionized Calcium Urine WBC (Auto) Coronavirus (PCR) SARS-CoV-2 IgG Ab Crossmatch 06/18/20 06/18/20 06/19/20 17:31 23:33 04:32 WBC RBC Hgb Hct MCV MCH MCHC RDW Lymph % (Auto) Lymph # (Auto) [place] # (Auto) Baso # (Auto) Seg Neutrophils % Seg Neuts % (Manual) Lymphocytes % (Manual) Nucleated RBC % Seg Neutrophils # Seg Neutrophils # Man Lymphocytes # (Manual) Monocytes # (Manual) Eosinophils # (Manual) PT INR APTT D-Dimer Heparin Anti-Xa Level ABG pH POC ABG pCO2 83.1 H POC ABG pO2 65.8 L ABG pO2 ABG HCO3 ABG O2 Saturation ABG Base Excess ABG Hemoglobin 8.9 L ABG Oxyhemoglobin ABG Sodium ABG Potassium ABG Chloride 96.0 L ABG Glucose 297 H Oxyhemoglobin Carboxyhemoglobin Sodium Potassium Chloride Carbon Dioxide BUN Creatinine Glucose POC Glucose 286 H 238 H Lactic Acid Calcium Magnesium Ferritin Total Bilirubin Direct Bilirubin AST ALT Alkaline Phosphatase Lactate Dehydrogenase C-Reactive Protein Total Protein Albumin Triglycerides Lipase Arterial Blood Glucose 297 H Arterial Blood Ionized Calcium Urine WBC (Auto) Coronavirus (PCR) SARS-CoV-2 IgG Ab Crossmatch 06/19/20 06/19/20 06/19/20 05:55 11:20 17:12 WBC RBC Hgb Hct MCV MCH MCHC RDW Lymph % (Auto) Lymph # (Auto) [place] # (Auto) Baso # (Auto) Seg Neutrophils % Seg Neuts % (Manual) Lymphocytes % (Manual) Nucleated RBC % Seg Neutrophils # Seg Neutrophils # Man Lymphocytes # (Manual) Monocytes # (Manual) Eosinophils # (Manual) PT INR APTT D-Dimer Heparin Anti-Xa Level ABG pH POC ABG pCO2 POC ABG pO2 ABG pO2 ABG HCO3 ABG O2 Saturation ABG Base Excess ABG Hemoglobin ABG Oxyhemoglobin ABG Sodium ABG Potassium ABG Chloride ABG Glucose Oxyhemoglobin Carboxyhemoglobin Sodium Potassium Chloride Carbon Dioxide BUN Creatinine Glucose POC Glucose 274 H 282 H 298 H Lactic Acid Calcium Magnesium Ferritin Total Bilirubin Direct Bilirubin AST ALT Alkaline Phosphatase Lactate Dehydrogenase C-Reactive Protein Total Protein Albumin Triglycerides Lipase Arterial Blood Glucose Arterial Blood Ionized Calcium Urine WBC (Auto) Coronavirus (PCR) SARS-CoV-2 IgG Ab Crossmatch 06/19/20 06/20/20 06/20/20 23:08 03:33 06:01 WBC RBC Hgb Hct MCV MCH MCHC RDW Lymph % (Auto) Lymph # (Auto) [place] # (Auto) Baso # (Auto) Seg Neutrophils % Seg Neuts % (Manual) Lymphocytes % (Manual) Nucleated RBC % Seg Neutrophils # Seg Neutrophils # Man Lymphocytes # (Manual) Monocytes # (Manual) Eosinophils # (Manual) PT INR APTT D-Dimer Heparin Anti-Xa Level ABG pH POC ABG pCO2 POC ABG pO2 ABG pO2 69.9 L ABG HCO3 50.8 H ABG O2 Saturation ABG Base Excess 24.2 H ABG Hemoglobin 5.8 L ABG Oxyhemoglobin ABG Sodium ABG Potassium ABG Chloride ABG Glucose Oxyhemoglobin Carboxyhemoglobin Sodium Potassium Chloride Carbon Dioxide BUN Creatinine Glucose POC Glucose 293 H 182 H Lactic Acid Calcium Magnesium Ferritin Total Bilirubin Direct Bilirubin AST ALT Alkaline Phosphatase Lactate Dehydrogenase C-Reactive Protein Total Protein Albumin Triglycerides Lipase Arterial Blood Glucose Arterial Blood Ionized Calcium Urine WBC (Auto) Coronavirus (PCR) SARS-CoV-2 IgG Ab Crossmatch 06/20/20 06/20/20 06/20/20 11:47 17:46 23:37 WBC RBC Hgb Hct MCV MCH MCHC RDW Lymph % (Auto) Lymph # (Auto) [place] # (Auto) Baso # (Auto) Seg Neutrophils % Seg Neuts % (Manual) Lymphocytes % (Manual) Nucleated RBC % Seg Neutrophils # Seg Neutrophils # Man Lymphocytes # (Manual) Monocytes # (Manual) Eosinophils # (Manual) PT INR APTT D-Dimer Heparin Anti-Xa Level ABG pH POC ABG pCO2 POC ABG pO2 ABG pO2 ABG HCO3 ABG O2 Saturation ABG Base Excess ABG Hemoglobin ABG Oxyhemoglobin ABG Sodium ABG Potassium ABG Chloride ABG Glucose Oxyhemoglobin Carboxyhemoglobin Sodium Potassium Chloride Carbon Dioxide BUN Creatinine Glucose POC Glucose 170 H 215 H 256 H Lactic Acid Calcium Magnesium Ferritin Total Bilirubin Direct Bilirubin AST ALT Alkaline Phosphatase Lactate Dehydrogenase C-Reactive Protein Total Protein Albumin Triglycerides Lipase Arterial Blood Glucose Arterial Blood Ionized Calcium Urine WBC (Auto) Coronavirus (PCR) SARS-CoV-2 IgG Ab Crossmatch 06/21/20 06/21/20 06/21/20 04:00 05:14 05:51 WBC RBC Hgb Hct MCV MCH MCHC RDW Lymph % (Auto) Lymph # (Auto) [place] # (Auto) Baso # (Auto) Seg Neutrophils % Seg Neuts % (Manual) Lymphocytes % (Manual) Nucleated RBC % Seg Neutrophils # Seg Neutrophils # Man Lymphocytes # (Manual) Monocytes # (Manual) Eosinophils # (Manual) PT INR APTT D-Dimer Heparin Anti-Xa Level ABG pH 7.474 H POC ABG pCO2 POC ABG pO2 ABG pO2 ABG HCO3 52.1 H ABG O2 Saturation ABG Base Excess 23.3 H ABG Hemoglobin 5.3 L ABG Oxyhemoglobin ABG Sodium ABG Potassium ABG Chloride ABG Glucose Oxyhemoglobin 93.8 L Carboxyhemoglobin Sodium Potassium Chloride Carbon Dioxide BUN Creatinine Glucose POC Glucose 122 H 129 H Lactic Acid Calcium Magnesium Ferritin Total Bilirubin Direct Bilirubin AST ALT Alkaline Phosphatase Lactate Dehydrogenase C-Reactive Protein Total Protein Albumin Triglycerides Lipase Arterial Blood Glucose Arterial Blood Ionized Calcium Urine WBC (Auto) Coronavirus (PCR) SARS-CoV-2 IgG Ab Crossmatch 06/21/20 06/21/20 06/21/20 11:00 11:00 11:42 WBC 14.2 H RBC 1.85 L Hgb 6.2 L Hct 19.5 L* MCV 105 H MCH 34 H MCHC RDW 18.0 H Lymph % (Auto) Lymph # (Auto) [place] # (Auto) Baso # (Auto) Seg Neutrophils % Seg Neuts % (Manual) Lymphocytes % (Manual) Nucleated RBC % Seg Neutrophils # Seg Neutrophils # Man Lymphocytes # (Manual) Monocytes # (Manual) Eosinophils # (Manual) PT INR APTT D-Dimer Heparin Anti-Xa Level ABG pH POC ABG pCO2 POC ABG pO2 ABG pO2 ABG HCO3 ABG O2 Saturation ABG Base Excess ABG Hemoglobin ABG Oxyhemoglobin ABG Sodium ABG Potassium ABG Chloride ABG Glucose Oxyhemoglobin Carboxyhemoglobin Sodium 147 H Potassium Chloride Carbon Dioxide 51 H* BUN 31 H Creatinine 0.5 L Glucose 224 H POC Glucose 217 H Lactic Acid Calcium Magnesium Ferritin Total Bilirubin Direct Bilirubin AST ALT Alkaline Phosphatase Lactate Dehydrogenase C-Reactive Protein Total Protein Albumin Triglycerides Lipase Arterial Blood Glucose Arterial Blood Ionized Calcium Urine WBC (Auto) Coronavirus (PCR) SARS-CoV-2 IgG Ab Crossmatch 06/21/20 06/21/20 06/21/20 14:18 14:30 18:36 WBC RBC Hgb Hct MCV MCH MCHC RDW Lymph % (Auto) Lymph # (Auto) [place] # (Auto) Baso # (Auto) Seg Neutrophils % Seg Neuts % (Manual) Lymphocytes % (Manual) Nucleated RBC % Seg Neutrophils # Seg Neutrophils # Man Lymphocytes # (Manual) Monocytes # (Manual) Eosinophils # (Manual) PT 15.1 H INR 1.19 H APTT D-Dimer Heparin Anti-Xa Level ABG pH POC ABG pCO2 POC ABG pO2 ABG pO2 ABG HCO3 ABG O2 Saturation ABG Base Excess ABG Hemoglobin ABG Oxyhemoglobin ABG Sodium ABG Potassium ABG Chloride ABG Glucose Oxyhemoglobin Carboxyhemoglobin Sodium Potassium Chloride Carbon Dioxide BUN Creatinine Glucose POC Glucose 185 H Lactic Acid Calcium Magnesium Ferritin Total Bilirubin Direct Bilirubin AST ALT Alkaline Phosphatase Lactate Dehydrogenase C-Reactive Protein Total Protein Albumin Triglycerides Lipase Arterial Blood Glucose Arterial Blood Ionized Calcium Urine WBC (Auto) Coronavirus (PCR) SARS-CoV-2 IgG Ab Crossmatch See Detail 06/21/20 06/22/20 06/22/20 21:14 03:50 04:00 WBC RBC Hgb Hct MCV MCH MCHC RDW Lymph % (Auto) Lymph # (Auto) [place] # (Auto) Baso # (Auto) Seg Neutrophils % Seg Neuts % (Manual) Lymphocytes % (Manual) Nucleated RBC % Seg Neutrophils # Seg Neutrophils # Man Lymphocytes # (Manual) Monocytes # (Manual) Eosinophils # (Manual) PT INR APTT D-Dimer Heparin Anti-Xa Level ABG pH 7.451 H POC ABG pCO2 POC ABG pO2 ABG pO2 ABG HCO3 47.5 H ABG O2 Saturation ABG Base Excess 22.0 H ABG Hemoglobin < 5.1 L ABG Oxyhemoglobin ABG Sodium ABG Potassium ABG Chloride ABG Glucose Oxyhemoglobin 94.1 L Carboxyhemoglobin Sodium 149 H Potassium 3.5 L Chloride Carbon Dioxide 42 H* D BUN 34 H Creatinine 0.4 L Glucose 219 H POC Glucose 250 H Lactic Acid Calcium Magnesium Ferritin Total Bilirubin Direct Bilirubin AST ALT Alkaline Phosphatase Lactate Dehydrogenase C-Reactive Protein Total Protein Albumin Triglycerides Lipase Arterial Blood Glucose Arterial Blood Ionized Calcium Urine WBC (Auto) Coronavirus (PCR) SARS-CoV-2 IgG Ab Crossmatch 06/22/20 06/22/20 06/22/20 12:16 14:29 17:56 WBC RBC Hgb Hct MCV MCH MCHC RDW Lymph % (Auto) Lymph # (Auto) [place] # (Auto) Baso # (Auto) Seg Neutrophils % Seg Neuts % (Manual) Lymphocytes % (Manual) Nucleated RBC % Seg Neutrophils # Seg Neutrophils # Man Lymphocytes # (Manual) Monocytes # (Manual) Eosinophils # (Manual) PT 11.8 L INR APTT 23.5 L D-Dimer Heparin Anti-Xa Level ABG pH POC ABG pCO2 POC ABG pO2 ABG pO2 ABG HCO3 ABG O2 Saturation ABG Base Excess ABG Hemoglobin ABG Oxyhemoglobin ABG Sodium ABG Potassium ABG Chloride ABG Glucose Oxyhemoglobin Carboxyhemoglobin Sodium Potassium Chloride Carbon Dioxide BUN Creatinine Glucose POC Glucose 215 H 215 H Lactic Acid Calcium Magnesium Ferritin Total Bilirubin Direct Bilirubin AST ALT Alkaline Phosphatase Lactate Dehydrogenase C-Reactive Protein Total Protein Albumin Triglycerides Lipase Arterial Blood Glucose Arterial Blood Ionized Calcium Urine WBC (Auto) Coronavirus (PCR) SARS-CoV-2 IgG Ab Crossmatch 06/22/20 06/22/20 06/22/20 23:36 23:45 Unknown WBC 14.1 H RBC 2.70 L Hgb 8.9 L 8.9 L Hct 26.9 L 27.2 L D MCV 101 H MCH 33 H MCHC RDW 17.7 H Lymph % (Auto) Lymph # (Auto) [place] # (Auto) Baso # (Auto) Seg Neutrophils % Seg Neuts % (Manual) 92.0 H Lymphocytes % (Manual) 5.0 L Nucleated RBC % Seg Neutrophils # Seg Neutrophils # Man 13.0 H Lymphocytes # (Manual) 0.7 L Monocytes # (Manual) Eosinophils # (Manual) PT INR APTT D-Dimer Heparin Anti-Xa Level ABG pH POC ABG pCO2 POC ABG pO2 ABG pO2 ABG HCO3 ABG O2 Saturation ABG Base Excess ABG Hemoglobin ABG Oxyhemoglobin ABG Sodium ABG Potassium ABG Chloride ABG Glucose Oxyhemoglobin Carboxyhemoglobin Sodium Potassium Chloride Carbon Dioxide BUN Creatinine Glucose POC Glucose 208 H Lactic Acid Calcium Magnesium Ferritin Total Bilirubin Direct Bilirubin AST ALT Alkaline Phosphatase Lactate Dehydrogenase C-Reactive Protein Total Protein Albumin Triglycerides Lipase Arterial Blood Glucose Arterial Blood Ionized Calcium Urine WBC (Auto) Coronavirus (PCR) SARS-CoV-2 IgG Ab Crossmatch 06/23/20 06/23/20 06/23/20 05:17 05:19 06:50 WBC RBC Hgb Hct MCV MCH MCHC RDW Lymph % (Auto) Lymph # (Auto) [place] # (Auto) Baso # (Auto) Seg Neutrophils % Seg Neuts % (Manual) Lymphocytes % (Manual) Nucleated RBC % Seg Neutrophils # Seg Neutrophils # Man Lymphocytes # (Manual) Monocytes # (Manual) Eosinophils # (Manual) PT INR APTT D-Dimer Heparin Anti-Xa Level ABG pH POC ABG pCO2 69.7 H POC ABG pO2 63.3 L ABG pO2 ABG HCO3 ABG O2 Saturation ABG Base Excess ABG Hemoglobin 10.1 L ABG Oxyhemoglobin ABG Sodium ABG Potassium 3.3 L ABG Chloride ABG Glucose 226 H Oxyhemoglobin Carboxyhemoglobin Sodium Potassium 3.0 L Chloride Carbon Dioxide 41 H* BUN 26 H Creatinine 0.4 L Glucose 209 H POC Glucose 200 H Lactic Acid Calcium Magnesium Ferritin Total Bilirubin Direct Bilirubin AST ALT Alkaline Phosphatase Lactate Dehydrogenase C-Reactive Protein Total Protein Albumin 2.9 L Triglycerides Lipase Arterial Blood Glucose 226 H Arterial Blood Ionized Calcium Urine WBC (Auto) Coronavirus (PCR) SARS-CoV-2 IgG Ab Crossmatch 06/23/20 06/23/20 06/23/20 09:41 12:04 18:16 WBC RBC Hgb 9.1 L Hct 28.0 L MCV MCH MCHC RDW Lymph % (Auto) Lymph # (Auto) [place] # (Auto) Baso # (Auto) Seg Neutrophils % Seg Neuts % (Manual) Lymphocytes % (Manual) Nucleated RBC % Seg Neutrophils # Seg Neutrophils # Man Lymphocytes # (Manual) Monocytes # (Manual) Eosinophils # (Manual) PT INR APTT D-Dimer Heparin Anti-Xa Level ABG pH POC ABG pCO2 POC ABG pO2 ABG pO2 ABG HCO3 ABG O2 Saturation ABG Base Excess ABG Hemoglobin ABG Oxyhemoglobin ABG Sodium ABG Potassium ABG Chloride ABG Glucose Oxyhemoglobin Carboxyhemoglobin Sodium Potassium Chloride Carbon Dioxide BUN Creatinine Glucose POC Glucose 146 H 162 H Lactic Acid Calcium Magnesium Ferritin Total Bilirubin Direct Bilirubin AST ALT Alkaline Phosphatase Lactate Dehydrogenase C-Reactive Protein Total Protein Albumin Triglycerides Lipase Arterial Blood Glucose Arterial Blood Ionized Calcium Urine WBC (Auto) Coronavirus (PCR) SARS-CoV-2 IgG Ab Crossmatch 06/23/20 06/23/20 06/24/20 23:24 23:41 02:39 WBC RBC Hgb 8.2 L 8.8 L Hct 24.9 L 26.8 L MCV MCH MCHC RDW Lymph % (Auto) Lymph # (Auto) [place] # (Auto) Baso # (Auto) Seg Neutrophils % Seg Neuts % (Manual) Lymphocytes % (Manual) Nucleated RBC % Seg Neutrophils # Seg Neutrophils # Man Lymphocytes # (Manual) Monocytes # (Manual) Eosinophils # (Manual) PT INR APTT D-Dimer Heparin Anti-Xa Level ABG pH POC ABG pCO2 POC ABG pO2 ABG pO2 ABG HCO3 ABG O2 Saturation ABG Base Excess ABG Hemoglobin ABG Oxyhemoglobin ABG Sodium ABG Potassium ABG Chloride ABG Glucose Oxyhemoglobin Carboxyhemoglobin Sodium Potassium Chloride Carbon Dioxide BUN Creatinine Glucose POC Glucose 248 H Lactic Acid Calcium Magnesium Ferritin Total Bilirubin Direct Bilirubin AST ALT Alkaline Phosphatase Lactate Dehydrogenase C-Reactive Protein Total Protein Albumin Triglycerides Lipase Arterial Blood Glucose Arterial Blood Ionized Calcium Urine WBC (Auto) Coronavirus (PCR) SARS-CoV-2 IgG Ab Crossmatch 06/24/20 06/24/20 06/24/20 02:39 02:45 05:31 WBC RBC Hgb Hct MCV MCH MCHC RDW Lymph % (Auto) Lymph # (Auto) [place] # (Auto) Baso # (Auto) Seg Neutrophils % Seg Neuts % (Manual) Lymphocytes % (Manual) Nucleated RBC % Seg Neutrophils # Seg Neutrophils # Man Lymphocytes # (Manual) Monocytes # (Manual) Eosinophils # (Manual) PT INR APTT D-Dimer Heparin Anti-Xa Level ABG pH POC ABG pCO2 66.9 H POC ABG pO2 109.7 H ABG pO2 ABG HCO3 ABG O2 Saturation ABG Base Excess ABG Hemoglobin 9.7 L ABG Oxyhemoglobin ABG Sodium 135.0 L ABG Potassium ABG Chloride 97.0 L ABG Glucose 277 H Oxyhemoglobin Carboxyhemoglobin Sodium 136 L Potassium Chloride 95.0 L Carbon Dioxide 34 H D BUN 24 H Creatinine 0.3 L Glucose 260 H POC Glucose 164 H Lactic Acid Calcium Magnesium Ferritin Total Bilirubin Direct Bilirubin AST ALT Alkaline Phosphatase Lactate Dehydrogenase C-Reactive Protein Total Protein 5.2 L Albumin 2.6 L Triglycerides Lipase Arterial Blood Glucose 277 H Arterial Blood Ionized Calcium Urine WBC (Auto) Coronavirus (PCR) SARS-CoV-2 IgG Ab Crossmatch 06/24/20 06/24/20 06/24/20 10:00 11:49 17:39 WBC RBC Hgb 8.9 L Hct 26.5 L MCV MCH MCHC RDW Lymph % (Auto) Lymph # (Auto) [place] # (Auto) Baso # (Auto) Seg Neutrophils % Seg Neuts % (Manual) Lymphocytes % (Manual) Nucleated RBC % Seg Neutrophils # Seg Neutrophils # Man Lymphocytes # (Manual) Monocytes # (Manual) Eosinophils # (Manual) PT INR APTT D-Dimer Heparin Anti-Xa Level ABG pH POC ABG pCO2 POC ABG pO2 ABG pO2 ABG HCO3 ABG O2 Saturation ABG Base Excess ABG Hemoglobin ABG Oxyhemoglobin ABG Sodium ABG Potassium ABG Chloride ABG Glucose Oxyhemoglobin Carboxyhemoglobin Sodium Potassium Chloride Carbon Dioxide BUN Creatinine Glucose POC Glucose 198 H 223 H Lactic Acid Calcium Magnesium Ferritin Total Bilirubin Direct Bilirubin AST ALT Alkaline Phosphatase Lactate Dehydrogenase C-Reactive Protein Total Protein Albumin Triglycerides Lipase Arterial Blood Glucose Arterial Blood Ionized Calcium Urine WBC (Auto) Coronavirus (PCR) SARS-CoV-2 IgG Ab Crossmatch 06/24/20 06/25/20 06/25/20 23:56 02:16 04:08 WBC RBC Hgb Hct MCV MCH MCHC RDW Lymph % (Auto) Lymph # (Auto) [place] # (Auto) Baso # (Auto) Seg Neutrophils % Seg Neuts % (Manual) Lymphocytes % (Manual) Nucleated RBC % Seg Neutrophils # Seg Neutrophils # Man Lymphocytes # (Manual) Monocytes # (Manual) Eosinophils # (Manual) PT INR APTT D-Dimer Heparin Anti-Xa Level ABG pH 7.454 H POC ABG pCO2 56.9 H POC ABG pO2 61.0 L ABG pO2 ABG HCO3 ABG O2 Saturation ABG Base Excess ABG Hemoglobin ABG Oxyhemoglobin ABG Sodium 134.3 L ABG Potassium ABG Chloride 92.0 L ABG Glucose 246 H Oxyhemoglobin Carboxyhemoglobin Sodium 134 L Potassium Chloride 89.7 L Carbon Dioxide 36 H BUN Creatinine 0.3 L Glucose 254 H POC Glucose 225 H Lactic Acid Calcium Magnesium Ferritin Total Bilirubin Direct Bilirubin AST ALT Alkaline Phosphatase Lactate Dehydrogenase C-Reactive Protein Total Protein Albumin 2.9 L Triglycerides Lipase Arterial Blood Glucose 246 H Arterial Blood Ionized Calcium Urine WBC (Auto) Coronavirus (PCR) SARS-CoV-2 IgG Ab Crossmatch 06/25/20 06/25/20 06/25/20 05:44 11:35 17:33 WBC RBC Hgb Hct MCV MCH MCHC RDW Lymph % (Auto) Lymph # (Auto) [place] # (Auto) Baso # (Auto) Seg Neutrophils % Seg Neuts % (Manual) Lymphocytes % (Manual) Nucleated RBC % Seg Neutrophils # Seg Neutrophils # Man Lymphocytes # (Manual) Monocytes # (Manual) Eosinophils # (Manual) PT INR APTT D-Dimer Heparin Anti-Xa Level ABG pH POC ABG pCO2 POC ABG pO2 ABG pO2 ABG HCO3 ABG O2 Saturation ABG Base Excess ABG Hemoglobin ABG Oxyhemoglobin ABG Sodium ABG Potassium ABG Chloride ABG Glucose Oxyhemoglobin Carboxyhemoglobin Sodium Potassium Chloride Carbon Dioxide BUN Creatinine Glucose POC Glucose 170 H 175 H 229 H Lactic Acid Calcium Magnesium Ferritin Total Bilirubin Direct Bilirubin AST ALT Alkaline Phosphatase Lactate Dehydrogenase C-Reactive Protein Total Protein Albumin Triglycerides Lipase Arterial Blood Glucose Arterial Blood Ionized Calcium Urine WBC (Auto) Coronavirus (PCR) SARS-CoV-2 IgG Ab Crossmatch 06/25/20 06/26/20 06/26/20 23:55 02:17 02:17 WBC RBC Hgb 10.0 L Hct 30.4 L MCV MCH MCHC RDW Lymph % (Auto) Lymph # (Auto) [place] # (Auto) Baso # (Auto) Seg Neutrophils % Seg Neuts % (Manual) Lymphocytes % (Manual) Nucleated RBC % Seg Neutrophils # Seg Neutrophils # Man Lymphocytes # (Manual) Monocytes # (Manual) Eosinophils # (Manual) PT INR APTT D-Dimer Heparin Anti-Xa Level ABG pH POC ABG pCO2 POC ABG pO2 ABG pO2 ABG HCO3 ABG O2 Saturation ABG Base Excess ABG Hemoglobin ABG Oxyhemoglobin ABG Sodium ABG Potassium ABG Chloride ABG Glucose Oxyhemoglobin Carboxyhemoglobin Sodium 136 L Potassium Chloride 90.1 L Carbon Dioxide 39 H BUN Creatinine 0.2 L Glucose 232 H POC Glucose 192 H Lactic Acid Calcium Magnesium Ferritin Total Bilirubin Direct Bilirubin AST ALT Alkaline Phosphatase Lactate Dehydrogenase C-Reactive Protein Total Protein 6.1 L Albumin 2.9 L Triglycerides Lipase Arterial Blood Glucose Arterial Blood Ionized Calcium Urine WBC (Auto) Coronavirus (PCR) SARS-CoV-2 IgG Ab Crossmatch 06/26/20 06/26/20 06/26/20 04:15 04:49 05:28 WBC RBC Hgb Hct MCV MCH MCHC RDW Lymph % (Auto) Lymph # (Auto) [place] # (Auto) Baso # (Auto) Seg Neutrophils % Seg Neuts % (Manual) Lymphocytes % (Manual) Nucleated RBC % Seg Neutrophils # Seg Neutrophils # Man Lymphocytes # (Manual) Monocytes # (Manual) Eosinophils # (Manual) PT INR APTT D-Dimer Heparin Anti-Xa Level ABG pH 7.453 H POC ABG pCO2 59.6 H POC ABG pO2 ABG pO2 ABG HCO3 ABG O2 Saturation ABG Base Excess ABG Hemoglobin 10.0 L ABG Oxyhemoglobin ABG Sodium 134.2 L ABG Potassium 3.3 L ABG Chloride 92.0 L ABG Glucose 305 H Oxyhemoglobin Carboxyhemoglobin Sodium Potassium Chloride Carbon Dioxide BUN Creatinine Glucose POC Glucose 234 H Lactic Acid Calcium Magnesium Ferritin Total Bilirubin Direct Bilirubin AST ALT Alkaline Phosphatase Lactate Dehydrogenase C-Reactive Protein Total Protein Albumin Triglycerides 203 H Lipase Arterial Blood Glucose 305 H Arterial Blood Ionized Calcium Urine WBC (Auto) Coronavirus (PCR) SARS-CoV-2 IgG Ab Crossmatch 06/26/20 06/26/20 06/26/20 11:58 17:58 21:32 WBC RBC Hgb Hct MCV MCH MCHC RDW Lymph % (Auto) Lymph # (Auto) [place] # (Auto) Baso # (Auto) Seg Neutrophils % Seg Neuts % (Manual) Lymphocytes % (Manual) Nucleated RBC % Seg Neutrophils # Seg Neutrophils # Man Lymphocytes # (Manual) Monocytes # (Manual) Eosinophils # (Manual) PT INR APTT D-Dimer Heparin Anti-Xa Level ABG pH POC ABG pCO2 POC ABG pO2 ABG pO2 ABG HCO3 ABG O2 Saturation ABG Base Excess ABG Hemoglobin ABG Oxyhemoglobin ABG Sodium ABG Potassium ABG Chloride ABG Glucose Oxyhemoglobin Carboxyhemoglobin Sodium Potassium Chloride Carbon Dioxide BUN Creatinine Glucose POC Glucose 198 H 193 H 191 H Lactic Acid Calcium Magnesium Ferritin Total Bilirubin Direct Bilirubin AST ALT Alkaline Phosphatase Lactate Dehydrogenase C-Reactive Protein Total Protein Albumin Triglycerides Lipase Arterial Blood Glucose Arterial Blood Ionized Calcium Urine WBC (Auto) Coronavirus (PCR) SARS-CoV-2 IgG Ab Crossmatch 06/26/20 06/27/20 06/27/20 23:40 04:35 05:32 WBC RBC Hgb Hct MCV MCH MCHC RDW Lymph % (Auto) Lymph # (Auto) [place] # (Auto) Baso # (Auto) Seg Neutrophils % Seg Neuts % (Manual) Lymphocytes % (Manual) Nucleated RBC % Seg Neutrophils # Seg Neutrophils # Man Lymphocytes # (Manual) Monocytes # (Manual) Eosinophils # (Manual) PT INR APTT D-Dimer Heparin Anti-Xa Level ABG pH 7.464 H POC ABG pCO2 60.8 H POC ABG pO2 ABG pO2 ABG HCO3 ABG O2 Saturation ABG Base Excess ABG Hemoglobin 10.1 L ABG Oxyhemoglobin ABG Sodium ABG Potassium 2.9 L ABG Chloride 92.0 L ABG Glucose 298 H Oxyhemoglobin Carboxyhemoglobin Sodium Potassium Chloride Carbon Dioxide BUN Creatinine Glucose POC Glucose 241 H 211 H Lactic Acid Calcium Magnesium Ferritin Total Bilirubin Direct Bilirubin AST ALT Alkaline Phosphatase Lactate Dehydrogenase C-Reactive Protein Total Protein Albumin Triglycerides Lipase Arterial Blood Glucose 298 H Arterial Blood Ionized Calcium Urine WBC (Auto) Coronavirus (PCR) SARS-CoV-2 IgG Ab Crossmatch 06/27/20 06/27/20 06/27/20 12:37 18:08 20:52 WBC RBC Hgb Hct MCV MCH MCHC RDW Lymph % (Auto) Lymph # (Auto) [place] # (Auto) Baso # (Auto) Seg Neutrophils % Seg Neuts % (Manual) Lymphocytes % (Manual) Nucleated RBC % Seg Neutrophils # Seg Neutrophils # Man Lymphocytes # (Manual) Monocytes # (Manual) Eosinophils # (Manual) PT INR APTT D-Dimer Heparin Anti-Xa Level ABG pH POC ABG pCO2 POC ABG pO2 ABG pO2 ABG HCO3 ABG O2 Saturation ABG Base Excess ABG Hemoglobin ABG Oxyhemoglobin ABG Sodium ABG Potassium ABG Chloride ABG Glucose Oxyhemoglobin Carboxyhemoglobin Sodium Potassium Chloride Carbon Dioxide BUN Creatinine Glucose POC Glucose 182 H 197 H 195 H Lactic Acid Calcium Magnesium Ferritin Total Bilirubin Direct Bilirubin AST ALT Alkaline Phosphatase Lactate Dehydrogenase C-Reactive Protein Total Protein Albumin Triglycerides Lipase Arterial Blood Glucose Arterial Blood Ionized Calcium Urine WBC (Auto) Coronavirus (PCR) SARS-CoV-2 IgG Ab Crossmatch 06/27/20 06/28/20 06/28/20 Unknown 04:17 04:50 WBC RBC Hgb Hct MCV MCH MCHC RDW Lymph % (Auto) Lymph # (Auto) [place] # (Auto) Baso # (Auto) Seg Neutrophils % Seg Neuts % (Manual) Lymphocytes % (Manual) Nucleated RBC % Seg Neutrophils # Seg Neutrophils # Man Lymphocytes # (Manual) Monocytes # (Manual) Eosinophils # (Manual) PT INR APTT D-Dimer Heparin Anti-Xa Level ABG pH POC ABG pCO2 58.6 H POC ABG pO2 60.1 L ABG pO2 ABG HCO3 ABG O2 Saturation ABG Base Excess ABG Hemoglobin 10.0 L ABG Oxyhemoglobin ABG Sodium 125.3 L ABG Potassium ABG Chloride 93.0 L ABG Glucose 308 H Oxyhemoglobin Carboxyhemoglobin Sodium Potassium 2.9 L* Chloride 93.4 L Carbon Dioxide 42 H* BUN Creatinine 0.3 L Glucose 211 H POC Glucose 252 H Lactic Acid Calcium 8.1 L Magnesium Ferritin Total Bilirubin Direct Bilirubin AST ALT Alkaline Phosphatase Lactate Dehydrogenase C-Reactive Protein Total Protein 5.1 L Albumin 2.4 L Triglycerides Lipase Arterial Blood Glucose 308 H Arterial Blood Ionized Calcium Urine WBC (Auto) Coronavirus (PCR) SARS-CoV-2 IgG Ab Crossmatch 06/28/20 06/28/20 06/28/20 06:35 06:35 11:36 WBC 18.9 H RBC 2.85 L Hgb 9.5 L Hct 28.4 L MCV 100 H MCH 33 H MCHC RDW 17.3 H Lymph % (Auto) Lymph # (Auto) [place] # (Auto) Baso # (Auto) Seg Neutrophils % 88.6 H Seg Neuts % (Manual) 95.0 H Lymphocytes % (Manual) 1.0 L Nucleated RBC % Seg Neutrophils # 15.9 H Seg Neutrophils # Man 18.0 H Lymphocytes # (Manual) 0.2 L Monocytes # (Manual) Eosinophils # (Manual) PT INR APTT D-Dimer Heparin Anti-Xa Level ABG pH POC ABG pCO2 POC ABG pO2 ABG pO2 ABG HCO3 ABG O2 Saturation ABG Base Excess ABG Hemoglobin ABG Oxyhemoglobin ABG Sodium ABG Potassium ABG Chloride ABG Glucose Oxyhemoglobin Carboxyhemoglobin Sodium Potassium Chloride 94.2 L Carbon Dioxide 38 H BUN Creatinine 0.3 L Glucose 228 H POC Glucose 243 H Lactic Acid Calcium Magnesium Ferritin Total Bilirubin Direct Bilirubin AST ALT Alkaline Phosphatase Lactate Dehydrogenase C-Reactive Protein Total Protein 6.1 L Albumin 2.7 L Triglycerides Lipase Arterial Blood Glucose Arterial Blood Ionized Calcium Urine WBC (Auto) Coronavirus (PCR) SARS-CoV-2 IgG Ab Crossmatch 06/28/20 06/28/20 06/29/20 16:53 21:10 00:06 WBC RBC Hgb Hct MCV MCH MCHC RDW Lymph % (Auto) Lymph # (Auto) [place] # (Auto) Baso # (Auto) Seg Neutrophils % Seg Neuts % (Manual) Lymphocytes % (Manual) Nucleated RBC % Seg Neutrophils # Seg Neutrophils # Man Lymphocytes # (Manual) Monocytes # (Manual) Eosinophils # (Manual) PT INR APTT D-Dimer Heparin Anti-Xa Level ABG pH POC ABG pCO2 POC ABG pO2 ABG pO2 ABG HCO3 ABG O2 Saturation ABG Base Excess ABG Hemoglobin ABG Oxyhemoglobin ABG Sodium ABG Potassium ABG Chloride ABG Glucose Oxyhemoglobin Carboxyhemoglobin Sodium Potassium Chloride Carbon Dioxide BUN Creatinine Glucose POC Glucose 211 H 195 H 200 H Lactic Acid Calcium Magnesium Ferritin Total Bilirubin Direct Bilirubin AST ALT Alkaline Phosphatase Lactate Dehydrogenase C-Reactive Protein Total Protein Albumin Triglycerides Lipase Arterial Blood Glucose Arterial Blood Ionized Calcium Urine WBC (Auto) Coronavirus (PCR) SARS-CoV-2 IgG Ab Crossmatch 06/29/20 06/29/20 06/29/20 03:11 04:00 04:00 WBC 18.8 H RBC 2.82 L Hgb 10.1 L Hct 28.5 L MCV 101 H MCH 36 H MCHC 36 H RDW 17.5 H Lymph % (Auto) 10.7 L Lymph # (Auto) [place] # (Auto) 1.0 H Baso # (Auto) 0.3 H Seg Neutrophils % 82.2 H Seg Neuts % (Manual) Lymphocytes % (Manual) Nucleated RBC % Seg Neutrophils # 15.5 H Seg Neutrophils # Man Lymphocytes # (Manual) Monocytes # (Manual) Eosinophils # (Manual) PT INR APTT D-Dimer Heparin Anti-Xa Level ABG pH POC ABG pCO2 57.5 H POC ABG pO2 69.1 L ABG pO2 ABG HCO3 ABG O2 Saturation ABG Base Excess ABG Hemoglobin 10.2 L ABG Oxyhemoglobin 92.3 L ABG Sodium 130.7 L ABG Potassium 3.2 L ABG Chloride 93.0 L ABG Glucose 228 H Oxyhemoglobin Carboxyhemoglobin Sodium 134 L Potassium 3.3 L Chloride 89.5 L Carbon Dioxide 40 H BUN Creatinine 0.2 L Glucose 190 H POC Glucose Lactic Acid Calcium Magnesium Ferritin Total Bilirubin Direct Bilirubin AST < 5 L ALT < 5 L Alkaline Phosphatase Lactate Dehydrogenase C-Reactive Protein Total Protein 5.9 L Albumin 2.2 L Triglycerides Lipase Arterial Blood Glucose 228 H Arterial Blood Ionized Calcium Urine WBC (Auto) Coronavirus (PCR) SARS-CoV-2 IgG Ab Crossmatch 06/29/20 06/29/20 06/29/20 05:00 05:23 09:36 WBC RBC Hgb Hct MCV MCH MCHC RDW Lymph % (Auto) Lymph # (Auto) [place] # (Auto) Baso # (Auto) Seg Neutrophils % Seg Neuts % (Manual) Lymphocytes % (Manual) Nucleated RBC % Seg Neutrophils # Seg Neutrophils # Man Lymphocytes # (Manual) Monocytes # (Manual) Eosinophils # (Manual) PT INR APTT D-Dimer Heparin Anti-Xa Level ABG pH POC ABG pCO2 POC ABG pO2 ABG pO2 ABG HCO3 ABG O2 Saturation ABG Base Excess ABG Hemoglobin ABG Oxyhemoglobin ABG Sodium ABG Potassium ABG Chloride ABG Glucose Oxyhemoglobin Carboxyhemoglobin Sodium Potassium Chloride Carbon Dioxide BUN Creatinine Glucose POC Glucose 165 H Lactic Acid Calcium Magnesium Ferritin Total Bilirubin Direct Bilirubin AST ALT Alkaline Phosphatase Lactate Dehydrogenase C-Reactive Protein Total Protein Albumin Triglycerides 1544 H 1799 H Lipase Arterial Blood Glucose Arterial Blood Ionized Calcium Urine WBC (Auto) Coronavirus (PCR) SARS-CoV-2 IgG Ab Crossmatch 06/29/20 06/29/20 06/29/20 09:36 12:02 18:00 WBC RBC Hgb Hct MCV MCH MCHC RDW Lymph % (Auto) Lymph # (Auto) [place] # (Auto) Baso # (Auto) Seg Neutrophils % Seg Neuts % (Manual) Lymphocytes % (Manual) Nucleated RBC % Seg Neutrophils # Seg Neutrophils # Man Lymphocytes # (Manual) Monocytes # (Manual) Eosinophils # (Manual) PT INR APTT D-Dimer Heparin Anti-Xa Level ABG pH POC ABG pCO2 POC ABG pO2 ABG pO2 ABG HCO3 ABG O2 Saturation ABG Base Excess ABG Hemoglobin ABG Oxyhemoglobin ABG Sodium ABG Potassium ABG Chloride ABG Glucose Oxyhemoglobin Carboxyhemoglobin Sodium Potassium Chloride Carbon Dioxide BUN Creatinine Glucose POC Glucose 197 H 187 H Lactic Acid Calcium Magnesium Ferritin Total Bilirubin Direct Bilirubin AST ALT Alkaline Phosphatase Lactate Dehydrogenase C-Reactive Protein Total Protein Albumin Triglycerides Lipase 86 H Arterial Blood Glucose Arterial Blood Ionized Calcium Urine WBC (Auto) Coronavirus (PCR) SARS-CoV-2 IgG Ab Crossmatch 06/29/20 06/30/20 06/30/20 23:33 03:46 05:50 WBC RBC Hgb Hct MCV MCH MCHC RDW Lymph % (Auto) Lymph # (Auto) [place] # (Auto) Baso # (Auto) Seg Neutrophils % Seg Neuts % (Manual) Lymphocytes % (Manual) Nucleated RBC % Seg Neutrophils # Seg Neutrophils # Man Lymphocytes # (Manual) Monocytes # (Manual) Eosinophils # (Manual) PT INR APTT D-Dimer Heparin Anti-Xa Level ABG pH 7.466 H POC ABG pCO2 57.3 H POC ABG pO2 66.1 L ABG pO2 ABG HCO3 ABG O2 Saturation ABG Base Excess ABG Hemoglobin 10.2 L ABG Oxyhemoglobin 92.3 L ABG Sodium 134.4 L ABG Potassium 3.2 L ABG Chloride 94.0 L ABG Glucose 178 H Oxyhemoglobin Carboxyhemoglobin Sodium Potassium Chloride Carbon Dioxide BUN Creatinine Glucose POC Glucose 170 H 170 H Lactic Acid Calcium Magnesium Ferritin Total Bilirubin Direct Bilirubin AST ALT Alkaline Phosphatase Lactate Dehydrogenase C-Reactive Protein Total Protein Albumin Triglycerides Lipase Arterial Blood Glucose 178 H Arterial Blood Ionized Calcium Urine WBC (Auto) Coronavirus (PCR) SARS-CoV-2 IgG Ab Crossmatch 06/30/20 06/30/20 06/30/20 07:00 07:00 12:04 WBC 15.6 H RBC 2.91 L Hgb 9.8 L Hct 29.7 L MCV 102 H MCH 34 H MCHC RDW 17.8 H Lymph % (Auto) Lymph # (Auto) [place] # (Auto) Baso # (Auto) Seg Neutrophils % Seg Neuts % (Manual) Lymphocytes % (Manual) 5.0 L Nucleated RBC % Seg Neutrophils # Seg Neutrophils # Man 14.8 H Lymphocytes # (Manual) 0.8 L Monocytes # (Manual) Eosinophils # (Manual) PT INR APTT D-Dimer Heparin Anti-Xa Level ABG pH POC ABG pCO2 POC ABG pO2 ABG pO2 ABG HCO3 ABG O2 Saturation ABG Base Excess ABG Hemoglobin ABG Oxyhemoglobin ABG Sodium ABG Potassium ABG Chloride ABG Glucose Oxyhemoglobin Carboxyhemoglobin Sodium Potassium Chloride 93.3 L Carbon Dioxide 43 H* BUN Creatinine 0.3 L Glucose 260 H POC Glucose 245 H Lactic Acid Calcium Magnesium Ferritin Total Bilirubin Direct Bilirubin AST ALT Alkaline Phosphatase Lactate Dehydrogenase C-Reactive Protein Total Protein Albumin 2.8 L Triglycerides 452 H Lipase Arterial Blood Glucose Arterial Blood Ionized Calcium Urine WBC (Auto) Coronavirus (PCR) SARS-CoV-2 IgG Ab Crossmatch 06/30/20 07/01/20 07/01/20 17:32 00:02 05:02 WBC RBC Hgb Hct MCV MCH MCHC RDW Lymph % (Auto) Lymph # (Auto) [place] # (Auto) Baso # (Auto) Seg Neutrophils % Seg Neuts % (Manual) Lymphocytes % (Manual) Nucleated RBC % Seg Neutrophils # Seg Neutrophils # Man Lymphocytes # (Manual) Monocytes # (Manual) Eosinophils # (Manual) PT INR APTT D-Dimer Heparin Anti-Xa Level ABG pH POC ABG pCO2 58.1 H POC ABG pO2 ABG pO2 ABG HCO3 ABG O2 Saturation ABG Base Excess ABG Hemoglobin 11.2 L ABG Oxyhemoglobin ABG Sodium 132.7 L ABG Potassium ABG Chloride 92.0 L ABG Glucose 238 H Oxyhemoglobin Carboxyhemoglobin Sodium Potassium Chloride Carbon Dioxide BUN Creatinine Glucose POC Glucose 209 H 208 H Lactic Acid Calcium Magnesium Ferritin Total Bilirubin Direct Bilirubin AST ALT Alkaline Phosphatase Lactate Dehydrogenase C-Reactive Protein Total Protein Albumin Triglycerides Lipase Arterial Blood Glucose 238 H Arterial Blood Ionized Calcium Urine WBC (Auto) Coronavirus (PCR) SARS-CoV-2 IgG Ab Crossmatch 07/01/20 07/01/20 07/01/20 06:16 06:41 06:41 WBC 18.1 H RBC 2.33 L Hgb 7.1 L Hct 21.3 L D MCV MCH MCHC RDW Lymph % (Auto) Lymph # (Auto) [place] # (Auto) Baso # (Auto) Seg Neutrophils % Seg Neuts % (Manual) 82.0 H Lymphocytes % (Manual) 7.0 L Nucleated RBC % 1.0 H Seg Neutrophils # Seg Neutrophils # Man 14.8 H Lymphocytes # (Manual) Monocytes # (Manual) 1.1 H Eosinophils # (Manual) 0.5 H PT INR APTT D-Dimer Heparin Anti-Xa Level < 0.10 L ABG pH POC ABG pCO2 POC ABG pO2 ABG pO2 ABG HCO3 ABG O2 Saturation ABG Base Excess ABG Hemoglobin ABG Oxyhemoglobin ABG Sodium ABG Potassium ABG Chloride ABG Glucose Oxyhemoglobin Carboxyhemoglobin Sodium Potassium Chloride Carbon Dioxide BUN Creatinine Glucose POC Glucose 180 H Lactic Acid Calcium Magnesium Ferritin Total Bilirubin Direct Bilirubin AST ALT Alkaline Phosphatase Lactate Dehydrogenase C-Reactive Protein Total Protein Albumin Triglycerides Lipase Arterial Blood Glucose Arterial Blood Ionized Calcium Urine WBC (Auto) Coronavirus (PCR) SARS-CoV-2 IgG Ab Crossmatch 07/01/20 07/01/20 07/01/20 08:11 12:04 16:16 WBC RBC Hgb Hct MCV MCH MCHC RDW Lymph % (Auto) Lymph # (Auto) [place] # (Auto) Baso # (Auto) Seg Neutrophils % Seg Neuts % (Manual) Lymphocytes % (Manual) Nucleated RBC % Seg Neutrophils # Seg Neutrophils # Man Lymphocytes # (Manual) Monocytes # (Manual) Eosinophils # (Manual) PT INR APTT D-Dimer Heparin Anti-Xa Level 1.02 H ABG pH POC ABG pCO2 POC ABG pO2 ABG pO2 ABG HCO3 ABG O2 Saturation ABG Base Excess ABG Hemoglobin ABG Oxyhemoglobin ABG Sodium ABG Potassium ABG Chloride ABG Glucose Oxyhemoglobin Carboxyhemoglobin Sodium 135 L Potassium 3.0 L Chloride 93.1 L Carbon Dioxide 40 H BUN Creatinine 0.3 L Glucose 140 H POC Glucose 223 H Lactic Acid Calcium Magnesium Ferritin Total Bilirubin Direct Bilirubin AST ALT Alkaline Phosphatase Lactate Dehydrogenase C-Reactive Protein Total Protein Albumin Triglycerides Lipase Arterial Blood Glucose Arterial Blood Ionized Calcium Urine WBC (Auto) Coronavirus (PCR) SARS-CoV-2 IgG Ab Crossmatch 07/01/20 07/01/20 07/02/20 17:09 23:19 00:56 WBC RBC Hgb Hct MCV MCH MCHC RDW Lymph % (Auto) Lymph # (Auto) [place] # (Auto) Baso # (Auto) Seg Neutrophils % Seg Neuts % (Manual) Lymphocytes % (Manual) Nucleated RBC % Seg Neutrophils # Seg Neutrophils # Man Lymphocytes # (Manual) Monocytes # (Manual) Eosinophils # (Manual) PT INR APTT D-Dimer Heparin Anti-Xa Level 0.22 L ABG pH POC ABG pCO2 POC ABG pO2 ABG pO2 ABG HCO3 ABG O2 Saturation ABG Base Excess ABG Hemoglobin ABG Oxyhemoglobin ABG Sodium ABG Potassium ABG Chloride ABG Glucose Oxyhemoglobin Carboxyhemoglobin Sodium Potassium Chloride Carbon Dioxide BUN Creatinine Glucose POC Glucose 233 H 255 H Lactic Acid Calcium Magnesium Ferritin Total Bilirubin Direct Bilirubin AST ALT Alkaline Phosphatase Lactate Dehydrogenase C-Reactive Protein Total Protein Albumin Triglycerides Lipase Arterial Blood Glucose Arterial Blood Ionized Calcium Urine WBC (Auto) Coronavirus (PCR) SARS-CoV-2 IgG Ab Crossmatch 07/02/20 07/02/20 07/02/20 03:51 05:35 11:39 WBC RBC Hgb Hct MCV MCH MCHC RDW Lymph % (Auto) Lymph # (Auto) [place] # (Auto) Baso # (Auto) Seg Neutrophils % Seg Neuts % (Manual) Lymphocytes % (Manual) Nucleated RBC % Seg Neutrophils # Seg Neutrophils # Man Lymphocytes # (Manual) Monocytes # (Manual) Eosinophils # (Manual) PT INR APTT D-Dimer Heparin Anti-Xa Level ABG pH POC ABG pCO2 54.9 H POC ABG pO2 52.1 L ABG pO2 ABG HCO3 ABG O2 Saturation ABG Base Excess ABG Hemoglobin 11.9 L ABG Oxyhemoglobin 82.8 L ABG Sodium 130.2 L ABG Potassium ABG Chloride 92.0 L ABG Glucose 249 H Oxyhemoglobin Carboxyhemoglobin 1.9 H Sodium Potassium Chloride Carbon Dioxide BUN Creatinine Glucose POC Glucose 205 H 235 H Lactic Acid Calcium Magnesium Ferritin Total Bilirubin Direct Bilirubin AST ALT Alkaline Phosphatase Lactate Dehydrogenase C-Reactive Protein Total Protein Albumin Triglycerides Lipase Arterial Blood Glucose 249 H Arterial Blood Ionized Calcium Urine WBC (Auto) Coronavirus (PCR) SARS-CoV-2 IgG Ab Crossmatch 07/02/20 07/02/20 07/02/20 16:08 16:08 17:54 WBC 19.8 H RBC 3.28 L Hgb 10.7 L D Hct 32.7 L D MCV 100 H MCH 33 H MCHC RDW 17.2 H Lymph % (Auto) Lymph # (Auto) [place] # (Auto) Baso # (Auto) Seg Neutrophils % Seg Neuts % (Manual) Lymphocytes % (Manual) Nucleated RBC % Seg Neutrophils # Seg Neutrophils # Man Lymphocytes # (Manual) Monocytes # (Manual) Eosinophils # (Manual) PT INR APTT D-Dimer Heparin Anti-Xa Level ABG pH POC ABG pCO2 POC ABG pO2 ABG pO2 ABG HCO3 ABG O2 Saturation ABG Base Excess ABG Hemoglobin ABG Oxyhemoglobin ABG Sodium ABG Potassium ABG Chloride ABG Glucose Oxyhemoglobin Carboxyhemoglobin Sodium 136 L Potassium Chloride 92.4 L Carbon Dioxide 35 H BUN Creatinine 0.3 L Glucose 203 H POC Glucose 175 H Lactic Acid Calcium Magnesium Ferritin Total Bilirubin Direct Bilirubin AST ALT Alkaline Phosphatase Lactate Dehydrogenase C-Reactive Protein Total Protein Albumin Triglycerides Lipase Arterial Blood Glucose Arterial Blood Ionized Calcium Urine WBC (Auto) Coronavirus (PCR) SARS-CoV-2 IgG Ab Crossmatch 07/02/20 07/03/20 07/03/20 23:46 03:25 05:54 WBC RBC Hgb Hct MCV MCH MCHC RDW Lymph % (Auto) Lymph # (Auto) [place] # (Auto) Baso # (Auto) Seg Neutrophils % Seg Neuts % (Manual) Lymphocytes % (Manual) Nucleated RBC % Seg Neutrophils # Seg Neutrophils # Man Lymphocytes # (Manual) Monocytes # (Manual) Eosinophils # (Manual) PT INR APTT D-Dimer Heparin Anti-Xa Level ABG pH 7.468 H POC ABG pCO2 51.5 H POC ABG pO2 ABG pO2 ABG HCO3 ABG O2 Saturation ABG Base Excess ABG Hemoglobin ABG Oxyhemoglobin ABG Sodium 130.2 L ABG Potassium ABG Chloride 91.0 L ABG Glucose 210 H Oxyhemoglobin Carboxyhemoglobin 1.6 H Sodium Potassium Chloride Carbon Dioxide BUN Creatinine Glucose POC Glucose 173 H 125 H Lactic Acid Calcium Magnesium Ferritin Total Bilirubin Direct Bilirubin AST ALT Alkaline Phosphatase Lactate Dehydrogenase C-Reactive Protein Total Protein Albumin Triglycerides Lipase Arterial Blood Glucose 210 H Arterial Blood Ionized Calcium Urine WBC (Auto) Coronavirus (PCR) SARS-CoV-2 IgG Ab Crossmatch 07/03/20 07/03/20 07/03/20 11:43 12:20 12:20 WBC 16.5 H RBC 3.13 L Hgb 10.4 L Hct 31.8 L MCV 102 H MCH 33 H MCHC RDW 17.2 H Lymph % (Auto) Lymph # (Auto) [place] # (Auto) Baso # (Auto) Seg Neutrophils % Seg Neuts % (Manual) Lymphocytes % (Manual) Nucleated RBC % Seg Neutrophils # Seg Neutrophils # Man Lymphocytes # (Manual) Monocytes # (Manual) Eosinophils # (Manual) PT INR APTT D-Dimer Heparin Anti-Xa Level ABG pH POC ABG pCO2 POC ABG pO2 ABG pO2 ABG HCO3 ABG O2 Saturation ABG Base Excess ABG Hemoglobin ABG Oxyhemoglobin ABG Sodium ABG Potassium ABG Chloride ABG Glucose Oxyhemoglobin Carboxyhemoglobin Sodium 132 L Potassium Chloride 88.5 L Carbon Dioxide 37 H BUN Creatinine 0.3 L Glucose 230 H POC Glucose 223 H Lactic Acid Calcium Magnesium Ferritin Total Bilirubin Direct Bilirubin AST ALT Alkaline Phosphatase Lactate Dehydrogenase C-Reactive Protein Total Protein Albumin Triglycerides Lipase Arterial Blood Glucose Arterial Blood Ionized Calcium Urine WBC (Auto) Coronavirus (PCR) SARS-CoV-2 IgG Ab Crossmatch 07/03/20 07/03/20 07/04/20 17:24 21:41 00:54 WBC RBC Hgb Hct MCV MCH MCHC RDW Lymph % (Auto) Lymph # (Auto) [place] # (Auto) Baso # (Auto) Seg Neutrophils % Seg Neuts % (Manual) Lymphocytes % (Manual) Nucleated RBC % Seg Neutrophils # Seg Neutrophils # Man Lymphocytes # (Manual) Monocytes # (Manual) Eosinophils # (Manual) PT INR APTT D-Dimer Heparin Anti-Xa Level ABG pH POC ABG pCO2 POC ABG pO2 ABG pO2 ABG HCO3 ABG O2 Saturation ABG Base Excess ABG Hemoglobin ABG Oxyhemoglobin ABG Sodium ABG Potassium ABG Chloride ABG Glucose Oxyhemoglobin Carboxyhemoglobin Sodium Potassium Chloride Carbon Dioxide BUN Creatinine Glucose POC Glucose 163 H 220 H 195 H Lactic Acid Calcium Magnesium Ferritin Total Bilirubin Direct Bilirubin AST ALT Alkaline Phosphatase Lactate Dehydrogenase C-Reactive Protein Total Protein Albumin Triglycerides Lipase Arterial Blood Glucose Arterial Blood Ionized Calcium Urine WBC (Auto) Coronavirus (PCR) SARS-CoV-2 IgG Ab Crossmatch 07/04/20 07/04/20 07/04/20 03:25 04:00 04:00 WBC 14.9 H RBC 2.91 L Hgb 9.5 L Hct 29.2 L MCV 100 H MCH 33 H MCHC RDW 16.7 H Lymph % (Auto) 8.4 L Lymph # (Auto) [place] # (Auto) 1.1 H Baso # (Auto) Seg Neutrophils % 84.2 H Seg Neuts % (Manual) Lymphocytes % (Manual) Nucleated RBC % Seg Neutrophils # 12.6 H Seg Neutrophils # Man Lymphocytes # (Manual) Monocytes # (Manual) Eosinophils # (Manual) PT INR APTT D-Dimer Heparin Anti-Xa Level ABG pH 7.474 H POC ABG pCO2 POC ABG pO2 51.8 L ABG pO2 ABG HCO3 ABG O2 Saturation ABG Base Excess ABG Hemoglobin ABG Oxyhemoglobin ABG Sodium ABG Potassium ABG Chloride ABG Glucose Oxyhemoglobin Carboxyhemoglobin Sodium Potassium 3.4 L Chloride 92.1 L Carbon Dioxide 34 H BUN Creatinine 0.3 L Glucose 173 H POC Glucose Lactic Acid Calcium Magnesium Ferritin Total Bilirubin Direct Bilirubin AST ALT Alkaline Phosphatase Lactate Dehydrogenase C-Reactive Protein Total Protein Albumin Triglycerides Lipase Arterial Blood Glucose Arterial Blood Ionized Calcium Urine WBC (Auto) Coronavirus (PCR) SARS-CoV-2 IgG Ab Crossmatch 07/04/20 07/04/20 07/04/20 06:18 11:39 17:18 WBC RBC Hgb Hct MCV MCH MCHC RDW Lymph % (Auto) Lymph # (Auto) [place] # (Auto) Baso # (Auto) Seg Neutrophils % Seg Neuts % (Manual) Lymphocytes % (Manual) Nucleated RBC % Seg Neutrophils # Seg Neutrophils # Man Lymphocytes # (Manual) Monocytes # (Manual) Eosinophils # (Manual) PT INR APTT D-Dimer Heparin Anti-Xa Level ABG pH POC ABG pCO2 POC ABG pO2 ABG pO2 ABG HCO3 ABG O2 Saturation ABG Base Excess ABG Hemoglobin ABG Oxyhemoglobin ABG Sodium ABG Potassium ABG Chloride ABG Glucose Oxyhemoglobin Carboxyhemoglobin Sodium Potassium Chloride Carbon Dioxide BUN Creatinine Glucose POC Glucose 158 H 257 H 148 H Lactic Acid Calcium Magnesium Ferritin Total Bilirubin Direct Bilirubin AST ALT Alkaline Phosphatase Lactate Dehydrogenase C-Reactive Protein Total Protein Albumin Triglycerides Lipase Arterial Blood Glucose Arterial Blood Ionized Calcium Urine WBC (Auto) Coronavirus (PCR) SARS-CoV-2 IgG Ab Crossmatch 07/04/20 07/05/20 07/05/20 23:23 03:13 05:18 WBC 13.3 H RBC 2.90 L Hgb 9.8 L Hct 29.3 L MCV 101 H MCH 34 H MCHC RDW 17.0 H Lymph % (Auto) 11.1 L Lymph # (Auto) [place] # (Auto) Baso # (Auto) Seg Neutrophils % 82.3 H Seg Neuts % (Manual) Lymphocytes % (Manual) Nucleated RBC % Seg Neutrophils # 10.9 H Seg Neutrophils # Man Lymphocytes # (Manual) Monocytes # (Manual) Eosinophils # (Manual) PT INR APTT D-Dimer Heparin Anti-Xa Level ABG pH 7.48 H POC ABG pCO2 52.0 H POC ABG pO2 ABG pO2 ABG HCO3 ABG O2 Saturation ABG Base Excess ABG Hemoglobin 10.0 L ABG Oxyhemoglobin ABG Sodium 131.0 L ABG Potassium 3.3 L ABG Chloride 93.0 L ABG Glucose 177 H Oxyhemoglobin Carboxyhemoglobin Sodium Potassium Chloride Carbon Dioxide BUN Creatinine Glucose POC Glucose 227 H Lactic Acid Calcium Magnesium Ferritin Total Bilirubin Direct Bilirubin AST ALT Alkaline Phosphatase Lactate Dehydrogenase C-Reactive Protein Total Protein Albumin Triglycerides Lipase Arterial Blood Glucose 177 H Arterial Blood Ionized Calcium Urine WBC (Auto) Coronavirus (PCR) SARS-CoV-2 IgG Ab Crossmatch 07/05/20 07/05/20 07/05/20 05:18 05:25 05:57 WBC RBC Hgb Hct MCV MCH MCHC RDW Lymph % (Auto) Lymph # (Auto) [place] # (Auto) Baso # (Auto) Seg Neutrophils % Seg Neuts % (Manual) Lymphocytes % (Manual) Nucleated RBC % Seg Neutrophils # Seg Neutrophils # Man Lymphocytes # (Manual) Monocytes # (Manual) Eosinophils # (Manual) PT INR APTT D-Dimer Heparin Anti-Xa Level ABG pH 7.519 H POC ABG pCO2 POC ABG pO2 198.6 H ABG pO2 ABG HCO3 ABG O2 Saturation ABG Base Excess ABG Hemoglobin 10.3 L ABG Oxyhemoglobin 98.7 H ABG Sodium 133.6 L ABG Potassium 3.3 L ABG Chloride 93.0 L ABG Glucose 175 H Oxyhemoglobin Carboxyhemoglobin Sodium Potassium 3.4 L Chloride 92.5 L Carbon Dioxide 36 H BUN Creatinine 0.3 L Glucose 148 H POC Glucose 170 H Lactic Acid Calcium Magnesium Ferritin Total Bilirubin Direct Bilirubin AST ALT Alkaline Phosphatase Lactate Dehydrogenase C-Reactive Protein Total Protein Albumin Triglycerides Lipase Arterial Blood Glucose 175 H Arterial Blood Ionized Calcium Urine WBC (Auto) Coronavirus (PCR) SARS-CoV-2 IgG Ab Crossmatch 07/05/20 07/05/20 07/06/20 11:37 18:39 00:04 WBC RBC Hgb Hct MCV MCH MCHC RDW Lymph % (Auto) Lymph # (Auto) [place] # (Auto) Baso # (Auto) Seg Neutrophils % Seg Neuts % (Manual) Lymphocytes % (Manual) Nucleated RBC % Seg Neutrophils # Seg Neutrophils # Man Lymphocytes # (Manual) Monocytes # (Manual) Eosinophils # (Manual) PT INR APTT D-Dimer Heparin Anti-Xa Level ABG pH POC ABG pCO2 POC ABG pO2 ABG pO2 ABG HCO3 ABG O2 Saturation ABG Base Excess ABG Hemoglobin ABG Oxyhemoglobin ABG Sodium ABG Potassium ABG Chloride ABG Glucose Oxyhemoglobin Carboxyhemoglobin Sodium Potassium Chloride Carbon Dioxide BUN Creatinine Glucose POC Glucose 195 H 200 H 222 H Lactic Acid Calcium Magnesium Ferritin Total Bilirubin Direct Bilirubin AST ALT Alkaline Phosphatase Lactate Dehydrogenase C-Reactive Protein Total Protein Albumin Triglycerides Lipase Arterial Blood Glucose Arterial Blood Ionized Calcium Urine WBC (Auto) Coronavirus (PCR) SARS-CoV-2 IgG Ab Crossmatch 07/06/20 07/06/20 07/06/20 05:25 06:52 06:52 WBC 15.8 H RBC 3.17 L Hgb 10.4 L Hct 31.5 L MCV 99 H MCH 33 H MCHC RDW 17.0 H Lymph % (Auto) Lymph # (Auto) [place] # (Auto) Baso # (Auto) Seg Neutrophils % Seg Neuts % (Manual) Lymphocytes % (Manual) Nucleated RBC % Seg Neutrophils # Seg Neutrophils # Man Lymphocytes # (Manual) Monocytes # (Manual) Eosinophils # (Manual) PT INR APTT D-Dimer Heparin Anti-Xa Level ABG pH POC ABG pCO2 POC ABG pO2 ABG pO2 ABG HCO3 ABG O2 Saturation ABG Base Excess ABG Hemoglobin ABG Oxyhemoglobin ABG Sodium ABG Potassium ABG Chloride ABG Glucose Oxyhemoglobin Carboxyhemoglobin Sodium 135 L Potassium 3.4 L Chloride 91.9 L Carbon Dioxide 38 H BUN Creatinine 0.3 L Glucose 189 H POC Glucose 165 H Lactic Acid Calcium Magnesium Ferritin Total Bilirubin Direct Bilirubin AST ALT Alkaline Phosphatase Lactate Dehydrogenase C-Reactive Protein Total Protein Albumin Triglycerides Lipase Arterial Blood Glucose Arterial Blood Ionized Calcium Urine WBC (Auto) Coronavirus (PCR) SARS-CoV-2 IgG Ab Crossmatch 07/06/20 07/06/20 07/06/20 13:01 18:04 23:08 WBC RBC Hgb Hct MCV MCH MCHC RDW Lymph % (Auto) Lymph # (Auto) [place] # (Auto) Baso # (Auto) Seg Neutrophils % Seg Neuts % (Manual) Lymphocytes % (Manual) Nucleated RBC % Seg Neutrophils # Seg Neutrophils # Man Lymphocytes # (Manual) Monocytes # (Manual) Eosinophils # (Manual) PT INR APTT D-Dimer Heparin Anti-Xa Level ABG pH POC ABG pCO2 POC ABG pO2 ABG pO2 ABG HCO3 ABG O2 Saturation ABG Base Excess ABG Hemoglobin ABG Oxyhemoglobin ABG Sodium ABG Potassium ABG Chloride ABG Glucose Oxyhemoglobin Carboxyhemoglobin Sodium Potassium Chloride Carbon Dioxide BUN Creatinine Glucose POC Glucose 195 H 169 H 173 H Lactic Acid Calcium Magnesium Ferritin Total Bilirubin Direct Bilirubin AST ALT Alkaline Phosphatase Lactate Dehydrogenase C-Reactive Protein Total Protein Albumin Triglycerides Lipase Arterial Blood Glucose Arterial Blood Ionized Calcium Urine WBC (Auto) Coronavirus (PCR) SARS-CoV-2 IgG Ab Crossmatch 07/07/20 07/07/20 07/07/20 05:35 05:35 05:39 WBC 17.6 H RBC 3.16 L Hgb 10.4 L Hct 31.5 L MCV 100 H MCH 33 H MCHC RDW 16.7 H Lymph % (Auto) 11.1 L Lymph # (Auto) [place] # (Auto) 1.0 H Baso # (Auto) Seg Neutrophils % 83.0 H Seg Neuts % (Manual) Lymphocytes % (Manual) Nucleated RBC % Seg Neutrophils # 14.6 H Seg Neutrophils # Man Lymphocytes # (Manual) Monocytes # (Manual) Eosinophils # (Manual) PT INR APTT D-Dimer Heparin Anti-Xa Level ABG pH POC ABG pCO2 POC ABG pO2 ABG pO2 ABG HCO3 ABG O2 Saturation ABG Base Excess ABG Hemoglobin ABG Oxyhemoglobin ABG Sodium ABG Potassium ABG Chloride ABG Glucose Oxyhemoglobin Carboxyhemoglobin Sodium 135 L Potassium 3.4 L Chloride 94.3 L Carbon Dioxide 32 H BUN Creatinine 0.2 L Glucose 240 H POC Glucose 191 H Lactic Acid Calcium Magnesium Ferritin Total Bilirubin Direct Bilirubin AST ALT Alkaline Phosphatase Lactate Dehydrogenase C-Reactive Protein Total Protein Albumin Triglycerides Lipase Arterial Blood Glucose Arterial Blood Ionized Calcium Urine WBC (Auto) Coronavirus (PCR) SARS-CoV-2 IgG Ab Crossmatch 07/07/20 07/07/20 07/07/20 12:08 16:39 23:41 WBC RBC Hgb Hct MCV MCH MCHC RDW Lymph % (Auto) Lymph # (Auto) [place] # (Auto) Baso # (Auto) Seg Neutrophils % Seg Neuts % (Manual) Lymphocytes % (Manual) Nucleated RBC % Seg Neutrophils # Seg Neutrophils # Man Lymphocytes # (Manual) Monocytes # (Manual) Eosinophils # (Manual) PT INR APTT D-Dimer Heparin Anti-Xa Level ABG pH POC ABG pCO2 POC ABG pO2 ABG pO2 ABG HCO3 ABG O2 Saturation ABG Base Excess ABG Hemoglobin ABG Oxyhemoglobin ABG Sodium ABG Potassium ABG Chloride ABG Glucose Oxyhemoglobin Carboxyhemoglobin Sodium Potassium Chloride Carbon Dioxide BUN Creatinine Glucose POC Glucose 248 H 209 H 231 H Lactic Acid Calcium Magnesium Ferritin Total Bilirubin Direct Bilirubin AST ALT Alkaline Phosphatase Lactate Dehydrogenase C-Reactive Protein Total Protein Albumin Triglycerides Lipase Arterial Blood Glucose Arterial Blood Ionized Calcium Urine WBC (Auto) Coronavirus (PCR) SARS-CoV-2 IgG Ab Crossmatch 07/08/20 07/08/20 07/08/20 04:58 04:58 05:38 WBC 21.0 H RBC 2.86 L Hgb 9.2 L Hct 28.6 L MCV 100 H MCH MCHC RDW 16.7 H Lymph % (Auto) Lymph # (Auto) Stephenson # (Auto) Baso # (Auto) Seg Neutrophils % Seg Neuts % (Manual) 93.0 H Lymphocytes % (Manual) 3.0 L Nucleated RBC % Seg Neutrophils # Seg Neutrophils # Man 19.5 H Lymphocytes # (Manual) 0.6 L Monocytes # (Manual) Eosinophils # (Manual) PT INR APTT D-Dimer Heparin Anti-Xa Level ABG pH POC ABG pCO2 POC ABG pO2 ABG pO2 ABG HCO3 ABG O2 Saturation ABG Base Excess ABG Hemoglobin ABG Oxyhemoglobin ABG Sodium ABG Potassium ABG Chloride ABG Glucose Oxyhemoglobin Carboxyhemoglobin Sodium Potassium 3.0 L Chloride Carbon Dioxide BUN Creatinine 0.2 L Glucose 201 H POC Glucose 161 H Lactic Acid Calcium 7.9 L D Magnesium Ferritin Total Bilirubin Direct Bilirubin AST ALT Alkaline Phosphatase Lactate Dehydrogenase C-Reactive Protein Total Protein Albumin Triglycerides Lipase Arterial Blood Glucose Arterial Blood Ionized Calcium Urine WBC (Auto) Coronavirus (PCR) SARS-CoV-2 IgG Ab Crossmatch 07/08/20 07/08/20 12:19 Unknown WBC RBC Hgb Hct MCV MCH MCHC RDW Lymph % (Auto) Lymph # (Auto) Stephenson # (Auto) Baso # (Auto) Seg Neutrophils % Seg Neuts % (Manual) Lymphocytes % (Manual) Nucleated RBC % Seg Neutrophils # Seg Neutrophils # Man Lymphocytes # (Manual) Monocytes # (Manual) Eosinophils # (Manual) PT INR APTT D-Dimer Heparin Anti-Xa Level ABG pH POC ABG pCO2 POC ABG pO2 ABG pO2 75.3 L ABG HCO3 34.3 H ABG O2 Saturation ABG Base Excess 8.7 H ABG Hemoglobin 10.2 L ABG Oxyhemoglobin ABG Sodium ABG Potassium ABG Chloride ABG Glucose Oxyhemoglobin 93.7 L Carboxyhemoglobin Sodium Potassium Chloride Carbon Dioxide BUN Creatinine Glucose POC Glucose 152 H Lactic Acid Calcium Magnesium Ferritin Total Bilirubin Direct Bilirubin AST ALT Alkaline Phosphatase Lactate Dehydrogenase C-Reactive Protein Total Protein Albumin Triglycerides Lipase Arterial Blood Glucose Arterial Blood Ionized Calcium Urine WBC (Auto) Coronavirus (PCR) SARS-CoV-2 IgG Ab Crossmatch Chest x-ray: other (none today) Allied health notes reviewed: nursing
[2020-07-08] MEDS: MIDAZOLAM 100 MG in SODIUM CHLORIDE 0.9% 80 ML IV SCH (16:26)
[2020-07-09] MEDS: INSULIN LISPRO 100 UNIT/ML VIAL 3 mL SUB-Q SCH ×4 (00:47→18:03)
[2020-07-09] MEDS: dexmedeTOMIDine 1,000 MCG in SODIUM CHLORIDE 0.9% 250ML 250 ML IV SCH (00:48)
[2020-07-09] MEDS: NORepinephrine/NS 4 MG-250 ML 4 MG/250 ML BAG IV SCH ×2 (02:21→13:34)
[2020-07-09] MEDS: fentaNYL DRIP Premix 2,000 MCG/100 ML BAG IV SCH ×4 (04:34→19:43)
[2020-07-09] MEDS: methylPREDNISolone Sod Succinate 40 MG/1 ML INJ IV SCH ×2 (06:19→18:03)
[2020-07-09] MEDS: MIDODRINE 5 MG TAB PO SCH ×3 (07:39→16:07)
[2020-07-09] MEDS: QUEtiapine 200 MG TAB PO SCH ×3 (07:39→19:44)
[2020-07-09] MEDS: QUEtiapine 100 MG TAB PO SCH ×3 (07:39→19:44)
[2020-07-09] MEDS: PHENobarbital 32.4 MG TAB PO SCH ×2 (10:26→22:10)
[2020-07-09] MEDS: FOLIC ACID 1 MG TAB PO SCH (10:26)
[2020-07-09] MEDS: LANSOPRAZOLE 30 MG SOLUTAB FEEDTUBE SCH (10:26)
[2020-07-09] MEDS: ENOXAPARIN 80 MG/0.8 ML INJ SUB-Q SCH ×2 (10:27→22:09)
[2020-07-09] MEDS: ENOXAPARIN 30 MG/0.3 ML INJ SUB-Q SCH ×2 (10:27→22:10)
[2020-07-09] MEDS: INSULIN GLARGINE 100 UNITS/ML SUB-Q SCH ×2 (10:27→22:10)
[2020-07-09] MEDS: DOCUSATE SODIUM 100 MG/10 ML ORAL LIQD PO SCH ×2 (10:28→22:10)
[2020-07-09] MEDS: SENNOSIDES 8.6 MG TAB PO SCH ×2 (10:28→22:10)
--- NOTE | 2020-07-09 10:31 | Progress Note ---
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 ID following Patient is SARS CoV-2 IgG positive and is NOT a candidate for COVID convalescent plasma (3) Acute renal failure Current Visit: Yes Status: Acute Plan to address problem: SEN has resolved Monitor kidney function Avoid nephrotoxic agents (4) Elevated liver function tests Current Visit: Yes Status: Acute Plan to address problem: Most likely 2/2 to covid infection Monitor liver enzymes (5) Anemia Current Visit: Yes Status: Acute Plan to address problem: Monitor H/H Guaiac test positive-GI was consulted Continue PPIs Will transfuse PRBCs if needed (6) Alcohol dependence Current Visit: Yes Status: Acute Qualifiers: Substance use status: uncomplicated Qualified Code(s): F10.20 - Alcohol dependence, uncomplicated Plan to address problem: Patient restrained-agitation Continue sedation for saftey Patient is currently sedated -on vent for respiratory support Subjective Date of service: 07/09/20 Principal diagnosis: Ac hypoxemic resp failure; COVID-19; Severe Sepsis; Shaggy PNA; Alcohol Abuse Interval history: Patient seen at bedside-sedated on versed, fentayl, prdx. on pressor-levophad. patient is present orally intubated-on vent on tube feeding for nutrition and hydration Reviewed lab, mar, and v/s Reviewed specialist note and reces-input appreciated. 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 The aggregate critical care time was [34] minutes. This time is in addition to time spent performing reported procedures but includes the following: [x] Data Review and interpretation [x] Patient assessment and monitoring of vital signs [x] Documentation [x] Medication orders and management Objective - Constitutional Vitals: Vital Signs - 12hr 07/08/20 07/08/20 07/08/20 22:30 22:45 23:00 Temperature Pulse Rate 75 67 65 Pulse Rate [ From Monitor] Respiratory 16 16 12 Rate Blood Pressure 110/68 106/64 112/66 O2 Sat by Pulse 95 96 97 Oximetry 07/08/20 07/08/20 07/08/20 23:15 23:30 23:45 Temperature Pulse Rate 66 66 63 Pulse Rate [ From Monitor] Respiratory 16 20 19 Rate Blood Pressure 112/66 106/62 112/68 O2 Sat by Pulse 97 95 96 Oximetry 07/09/20 07/09/20 07/09/20 00:00 00:15 00:30 Temperature 97.4 F L Pulse Rate 62 74 65 Pulse Rate [ 62 From Monitor] Respiratory 20 12 20 Rate Blood Pressure 122/71 108/61 110/62 O2 Sat by Pulse 98 97 95 Oximetry 07/09/20 07/09/20 07/09/20 00:45 01:01 01:07 Temperature Pulse Rate 65 99 H 113 H Pulse Rate [ From Monitor] Respiratory 15 19 Rate Blood Pressure 112/63 135/81 135/81 O2 Sat by Pulse 98 98 95 Oximetry 07/09/20 07/09/20 07/09/20 01:15 01:31 01:46 Temperature Pulse Rate 107 H 124 H 110 H Pulse Rate [ From Monitor] Respiratory 19 25 H 17 Rate Blood Pressure 121/73 138/90 138/90 O2 Sat by Pulse 98 94 95 Oximetry 07/09/20 07/09/20 07/09/20 02:00 02:15 02:30 Temperature Pulse Rate 109 H 109 H 105 H Pulse Rate [ From Monitor] Respiratory 22 19 20 Rate Blood Pressure 116/76 118/78 118/68 O2 Sat by Pulse 94 98 97 Oximetry 07/09/20 07/09/20 07/09/20 02:45 03:01 03:15 Temperature Pulse Rate 101 H 94 H 90 Pulse Rate [ From Monitor] Respiratory 17 30 H 30 H Rate Blood Pressure 121/64 107/62 101/63 O2 Sat by Pulse 98 98 98 Oximetry 07/09/20 07/09/20 07/09/20 03:30 03:45 04:00 Temperature 97.4 F L Pulse Rate 86 81 77 Pulse Rate [ 75 From Monitor] Respiratory 30 H 30 H 30 H Rate Blood Pressure 102/66 107/66 112/71 O2 Sat by Pulse 100 99 98 Oximetry 07/09/20 07/09/20 07/09/20 04:15 04:30 04:38 Temperature Pulse Rate 67 63 62 Pulse Rate [ From Monitor] Respiratory 30 H 30 H Rate Blood Pressure 107/66 114/65 114/65 O2 Sat by Pulse 98 97 100 Oximetry 07/09/20 07/09/20 07/09/20 04:45 05:00 05:15 Temperature Pulse Rate 59 L 60 59 L Pulse Rate [ From Monitor] Respiratory 23 23 30 H Rate Blood Pressure 120/72 124/71 125/72 O2 Sat by Pulse 98 97 97 Oximetry 07/09/20 07/09/20 07/09/20 05:30 05:45 06:00 Temperature Pulse Rate 58 L 58 L 57 L Pulse Rate [ From Monitor] Respiratory 30 H 21 30 H Rate Blood Pressure 132/73 132/73 148/80 O2 Sat by Pulse 97 99 99 Oximetry 07/09/20 07/09/20 07/09/20 06:15 06:31 06:45 Temperature Pulse Rate 58 L 57 L 89 Pulse Rate [ From Monitor] Respiratory 30 H 30 H 30 H Rate Blood Pressure 148/80 159/79 159/79 O2 Sat by Pulse 99 100 100 Oximetry 07/09/20 08:45 Temperature Pulse Rate 124 H Pulse Rate [ From Monitor] Respiratory Rate Blood Pressure 106/63 O2 Sat by Pulse 96 Oximetry General appearance: Present: no acute distress, mild distress, well-nourished - EENT Eyes: PERRL, EOM intact ENT: hearing intact, clear oral mucosa Ears: bilateral: normal - Neck Neck: supple, normal ROM - Respiratory Respiratory effort: normal Respiratory: bilateral: CTA - Breasts Breasts: normal - Cardiovascular Rhythm: regular Heart Sounds: Present: S1 & S2. Absent: gallop, rub Extremities: pulses intact, No edema, normal color, Full ROM - Gastrointestinal General gastrointestinal: Present: soft, non-tender, non-distended, normal bowel sounds - Genitourinary Male genitourinary: normal - Integumentary Integumentary: clear, warm, dry - Musculoskeletal Musculoskeletal: 1, strength equal bilaterally - Neurologic Neurologic: moves all extremities - Psychiatric Psychiatric: memory intact, appropriate mood/affect, intact judgment & insight - Allied health notes Allied health notes reviewed: nursing - Labs CBC & Chem 7: 07/08/20 04:58 07/09/20 Unknown Labs: Abnormal lab results 07/08/20 07/08/20 07/09/20 Range/Units 12:19 16:26 00:01 POC Glucose 152 H 173 H 207 H (70-105) mg/dL 07/09/20 Range/Units 06:00 POC Glucose 141 H (70-105) mg/dL HEART Score - HEART Score Troponin: Troponin T 0.015 ng/mL (0.00-0.029) 07/07/20 10:00 <BLAIR WALLIS - Last Filed: 07/10/20 11:37> Assessment and Plan I did not personally evaluate the patient but reviewed chart and provided virtual support to [employer] helping with surge of patients due to covid pandemic Objective - Constitutional Vitals: Vital Signs - 12hr 07/09/20 07/10/20 07/10/20 23:45 00:00 00:16 Temperature 98.8 F Pulse Rate 65 62 81 Pulse Rate [ 62 From Monitor] Respiratory 20 25 H 19 Rate Blood Pressure 125/74 125/74 111/59 O2 Sat by Pulse 96 99 97 Oximetry 07/10/20 07/10/20 07/10/20 00:26 00:30 00:45 Temperature Pulse Rate 69 65 67 Pulse Rate [ From Monitor] Respiratory 19 26 H Rate Blood Pressure 111/59 111/59 118/64 O2 Sat by Pulse 98 98 97 Oximetry 07/10/20 07/10/20 07/10/20 01:00 01:15 01:30 Temperature Pulse Rate 71 65 63 Pulse Rate [ From Monitor] Respiratory 17 16 18 Rate Blood Pressure 118/64 128/63 128/63 O2 Sat by Pulse 97 96 98 Oximetry 07/10/20 07/10/20 07/10/20 01:45 02:00 02:15 Temperature Pulse Rate 63 66 61 Pulse Rate [ From Monitor] Respiratory 23 18 15 Rate Blood Pressure 133/75 133/75 140/80 O2 Sat by Pulse 96 99 98 Oximetry 07/10/20 07/10/20 07/10/20 02:30 02:46 03:00 Temperature Pulse Rate 62 65 61 Pulse Rate [ From Monitor] Respiratory 20 16 21 Rate Blood Pressure 140/80 146/82 92/46 O2 Sat by Pulse 99 97 97 Oximetry 07/10/20 07/10/20 07/10/20 03:15 03:30 03:46 Temperature Pulse Rate 63 60 62 Pulse Rate [ From Monitor] Respiratory 20 18 22 Rate Blood Pressure 83/50 83/50 156/87 O2 Sat by Pulse 95 99 97 Oximetry 07/10/20 07/10/20 07/10/20 03:56 04:00 04:15 Temperature 99.2 F Pulse Rate 61 65 Pulse Rate [ 61 From Monitor] Respiratory 16 13 Rate Blood Pressure 156/87 146/82 O2 Sat by Pulse 99 98 Oximetry 07/10/20 07/10/20 07/10/20 04:30 04:32 04:45 Temperature Pulse Rate 95 H 108 H 115 H Pulse Rate [ From Monitor] Respiratory 15 22 Rate Blood Pressure 146/82 155/81 157/80 O2 Sat by Pulse 100 98 97 Oximetry 07/10/20 07/10/20 07/10/20 05:00 05:15 05:30 Temperature Pulse Rate 121 H 121 H 126 H Pulse Rate [ From Monitor] Respiratory 28 H 24 34 H Rate Blood Pressure 157/80 141/82 141/82 O2 Sat by Pulse 95 94 90 Oximetry 07/10/20 07/10/20 07/10/20 05:46 06:00 06:15 Temperature Pulse Rate 123 H 141 H 114 H Pulse Rate [ From Monitor] Respiratory 22 29 H 19 Rate Blood Pressure 149/79 112/58 141/82 O2 Sat by Pulse 89 90 92 Oximetry 07/10/20 07/10/20 07/10/20 06:30 06:46 07:00 Temperature Pulse Rate 104 H 106 H 99 H Pulse Rate [ From Monitor] Respiratory 19 22 25 H Rate Blood Pressure 142/79 144/85 144/85 O2 Sat by Pulse 95 96 97 Oximetry 07/10/20 07/10/20 07/10/20 07:15 07:30 07:46 Temperature Pulse Rate 107 H 106 H 130 H Pulse Rate [ From Monitor] Respiratory 24 22 25 H Rate Blood Pressure 146/85 142/81 142/81 O2 Sat by Pulse 96 95 95 Oximetry 07/10/20 07/10/20 07/10/20 08:00 08:15 08:30 Temperature 98.6 F Pulse Rate 121 H 123 H 116 H Pulse Rate [ 121 H From Monitor] Respiratory 30 H 22 16 Rate Blood Pressure 127/64 124/68 109/61 O2 Sat by Pulse 94 95 95 Oximetry 07/10/20 07/10/20 07/10/20 08:43 08:46 09:00 Temperature Pulse Rate 126 H 124 H 116 H Pulse Rate [ From Monitor] Respiratory 18 17 Rate Blood Pressure 108/68 108/68 115/67 O2 Sat by Pulse 96 95 92 Oximetry 07/10/20 07/10/20 07/10/20 09:15 09:30 09:46 Temperature Pulse Rate 115 H 116 H 129 H Pulse Rate [ From Monitor] Respiratory 18 21 19 Rate Blood Pressure 113/71 130/79 136/85 O2 Sat by Pulse 95 95 94 Oximetry 07/10/20 07/10/20 07/10/20 10:00 10:15 10:30 Temperature Pulse Rate 122 H 114 H 113 H Pulse Rate [ From Monitor] Respiratory 18 20 20 Rate Blood Pressure 136/85 128/68 128/68 O2 Sat by Pulse 95 92 97 Oximetry 07/10/20 07/10/20 07/10/20 10:45 11:00 11:15 Temperature Pulse Rate 110 H 108 H 102 H Pulse Rate [ From Monitor] Respiratory 16 16 15 Rate Blood Pressure 119/72 122/75 114/67 O2 Sat by Pulse 97 96 97 Oximetry 07/10/20 11:33 Temperature Pulse Rate 111 H Pulse Rate [ From Monitor] Respiratory Rate Blood Pressure 122/77 O2 Sat by Pulse 100 Oximetry - Labs CBC & Chem 7: 07/08/20 04:58 07/09/20 Unknown Labs: Abnormal lab results 07/09/20 07/09/20 07/09/20 Range/Units 11:55 16:47 23:53 Sodium (137-145) mmol/L Chloride (98-107) mmol/L Carbon Dioxide (22-30) mmol/L Creatinine (0.8-1.3) mg/dL Glucose (75-100) mg/dL POC Glucose 228 H 136 H 219 H (70-105) mg/dL 07/09/20 07/10/20 Range/Units Unknown 05:20 Sodium 132 L (137-145) mmol/L Chloride 92.7 L (98-107) mmol/L Carbon Dioxide 35 H (22-30) mmol/L Creatinine 0.2 L (0.8-1.3) mg/dL Glucose 234 H (75-100) mg/dL POC Glucose 221 H (70-105) mg/dL HEART Score - HEART Score Troponin: Troponin T 0.015 ng/mL (0.00-0.029) 07/07/20 10:00
[2020-07-09 12:27] LABS: BUN/Creatinine Ratio 55; Blood Urea Nitrogen 11 mg/dL (9-20); Calcium 8.6 mg/dL (8.4-10.2); Hemolysis Index 2
[2020-07-09] MEDS: LORazepam 2 MG/ML VIAL IV PRN (13:34)
--- NOTE | 2020-07-09 13:52 | Cat Scan Report ---
CT head/brain wo con INDICATION / CLINICAL INFORMATION: 50 years Male; increased encephalopathy. TECHNIQUE: Routine CT head without contrast. All CT scans at this location are performed using CT dos e reduction for ALARA by means of automated exposure control. COMPARISON: None. FINDINGS: BRAIN / INTRACRANIAL CONTENTS: Small lacunar infarct versus perivascular space seen in the inferior g angliocapsular region on the right. Otherwise, no acute hemorrhage, mass effect, midline shift, hydrocephalus, or acute, large territori al infarct. No signs of significant atrophy or chronic infarct. No significant white matter abnormali ty seen. CRANIOCERVICAL JUNCTION: No significant abnormality. ORBITS: No significant abnormality of visualized orbits. SINUSES / MASTOIDS: There is partial opacification of the posterior ethmoids on the left. Significant mucosal thickening and desiccated secretions seen in the left sphenoid sinus. There is significant o pacification of the right maxillary antrum with air-fluid level noted. There is partial opacification of the mastoid air cells without coalescence. ADDITIONAL FINDINGS: None. IMPRESSION: 1. No focal mass, hemorrhage, hydrocephalus, or acute, large territorial infarct. 2. Significant sinus disease noted. Signer Name: Jayro Sequeira MD, III Signed: 07/09/2020 1:48 PM Workstation Name: [id number]
--- NOTE | 2020-07-09 17:02 | Progress Note ---
Assessment and Plan Acute hypoxemic respiratory failure due to COVID-19 Severe Sepsis Bilateral pneumonia Acute kidney injury (SEN) with acute tubular necrosis (ATN) Alcohol dependence Elevated liver function tests (Patient appears alert and follows simple commands albeit on sedation. I again explained to him the risk of extubation as he is not meeting criteria; i again strongly recommended he get a tracheostomy. He was silent and did not indicate yeah or nay albeit though he is sedated. I also explained the above to his daughter Tracie) - surgery to reach her again tomorrow to see what her decision is / thoughts are - continue to wean Levophed for target MAP > 65 mmHg - prn CXR's re: chest tube surveillance - continue care as below otherwise; - awaiting tracheostomy (COVID repeat negative) - continue to wean supplemental oxygen for target O2 sat's > 92% acutely - resume Daily SAT's and SBT assessment as tolerated - continue Seroquel at 300 mg po tid - continue Precedex - prn 12 lead EKG to monitor QT - continue midodrine re: hypotension - keep peep at 8 - continue bid protonix - continue bowel regimen - metoprolol 5 mg IV q6h prn pulse > 130/min - tracheostomy placement once oxygenation better / more hemodynamically stable - he will need a tracheostomy once numbers better - VAP bundle addressed - continue lung protective strategies - continue bronchodilators with pulmonary hygiene per RT - wean per pulmonary driven protocols otherwise - accuchecks with glycemic control per SSI (While critically ill target blood g lucose of 140-180 mg/dL; avoid hypoglycemia) - sedation prn for target RASS -1 to -2 - continue enteral nutritional support at goal rate as tolerated - continue airborne and contact isolation - follow repeat COVID-19 testing - continue Zinc & Vit C supplementaion - continue systemic steroids for Asthma / severe COVID infection - Prone positioning as tolerated - continue empiric full dose anticoagulation re: elevated d-dimers / hypercoagulable state - NOT a candidate for COVID convalescent plasma - continue systemic steroids X >/= 10 days - completed remdesivir dosing (total 5 days) - empiric AB's coverage per ID rec's - accuchecks with glycemic control per SSI (While critically ill target blood glucose of 140-180 mg/dL; avoid hypoglycemia) - avoid nephrotoxins, renally dose all medications - continue to avoid benzodiazepine's, reduce the possibility of delirium - continue wound care per RN / WCN - prn analgesia per CPOT score - Maintenance of sleep-wake cycle, avoid delirium - continue to avoid benzodiazepine's, reduce the possibility of delirium - aspiration precautions - G.I. & VTE prophylaxis - PT/OT/ROM exercises - continue mobility protocols for pressure ulcer prophylaxis - Monitor hemodynamics closely - continue other care per attending / other consultants - discharge planning ongoing concurrently .... Re-evaluate in am & prn CONDITION: CRITICAL PROGNOSIS: GUARDED CODE STATUS: FULL CODE The high probability of a clinically significant, sudden or life-threatening de terioration of the [respiratory, cardiovascular, hematologic & neurologic] system(s) required my full and direct attention, intervention and personal management. The aggregate critical care time was [45] minutes without overlap. Time includes spent on; [x] Data Review and interpretation [x] Patient assessment and monitoring of vital signs [x] Documentation [x] Medication orders and management Subjective Date of service: 07/09/20 Principal diagnosis: Ac hypoxemic resp failure; COVID-19; Severe Sepsis; Shaggy PNA; Alcohol Abuse Interval history: Patient is seen today for: Acute hypoxemic respiratory failure due to COVID-19; Severe Sepsis; Bilateral pneumonia; Alcohol dependence; Elevated liver function tests Seen and examined at bedside; 24hour events reviewed; nursing and respiratory care staff consulted; no adverse overnight events reported to me; resting in bed; remains on MVS; remains on full support; discussed care plan at length with his daughter in particular stressing that a trial of extubation is not an option as he is not meeting weaning criteria. Objective Vital Signs - 12hr 07/09/20 07/09/20 07/09/20 05:15 05:30 05:45 Temperature Pulse Rate 59 L 58 L 58 L Pulse Rate [ From Monitor] Respiratory 30 H 30 H 21 Rate Blood Pressure 125/72 132/73 132/73 O2 Sat by Pulse 97 97 99 Oximetry 07/09/20 07/09/20 07/09/20 06:00 06:15 06:31 Temperature Pulse Rate 57 L 58 L 57 L Pulse Rate [ From Monitor] Respiratory 30 H 30 H 30 H Rate Blood Pressure 148/80 148/80 159/79 O2 Sat by Pulse 99 99 100 Oximetry 07/09/20 07/09/20 07/09/20 06:45 07:01 07:15 Temperature Pulse Rate 89 108 H 123 H Pulse Rate [ From Monitor] Respiratory 30 H 16 24 Rate Blood Pressure 159/79 127/67 133/67 O2 Sat by Pulse 100 99 90 Oximetry 07/09/20 07/09/20 07/09/20 07:30 07:45 08:00 Temperature 97.9 F Pulse Rate 120 H 120 H Pulse Rate [ 131 H From Monitor] Respiratory 26 H 28 H 30 H Rate Blood Pressure 137/71 136/74 O2 Sat by Pulse 92 93 98 Oximetry 07/09/20 07/09/20 07/09/20 08:01 08:15 08:30 Temperature Pulse Rate 131 H 132 H 122 H Pulse Rate [ From Monitor] Respiratory 27 H 25 H 26 H Rate Blood Pressure 136/74 117/57 98/59 O2 Sat by Pulse 92 92 93 Oximetry 07/09/20 07/09/20 07/09/20 08:45 09:00 09:15 Temperature Pulse Rate 124 H 116 H 116 H Pulse Rate [ From Monitor] Respiratory 21 22 19 Rate Blood Pressure 106/63 100/63 100/63 O2 Sat by Pulse 94 93 96 Oximetry 07/09/20 07/09/20 07/09/20 09:31 09:45 10:01 Temperature Pulse Rate 118 H 111 H 107 H Pulse Rate [ From Monitor] Respiratory 22 20 13 Rate Blood Pressure 117/70 116/54 122/57 O2 Sat by Pulse 96 96 97 Oximetry 07/09/20 07/09/20 07/09/20 10:15 10:30 10:45 Temperature Pulse Rate 106 H 107 H 99 H Pulse Rate [ From Monitor] Respiratory 13 19 21 Rate Blood Pressure 122/57 115/67 108/65 O2 Sat by Pulse 96 95 96 Oximetry 07/09/20 07/09/20 07/09/20 11:00 11:15 11:30 Temperature Pulse Rate 94 H 91 H 90 Pulse Rate [ From Monitor] Respiratory 30 H 20 20 Rate Blood Pressure 111/65 111/66 106/63 O2 Sat by Pulse 96 96 95 Oximetry 07/09/20 07/09/20 07/09/20 11:42 11:45 12:00 Temperature 98.1 F Pulse Rate 98 H 96 H 100 H Pulse Rate [ 98 H From Monitor] Respiratory 20 42 H Rate Blood Pressure 106/63 106/70 125/71 O2 Sat by Pulse 100 98 98 Oximetry 07/09/20 07/09/20 07/09/20 12:15 12:30 12:45 Temperature Pulse Rate 92 H 88 94 H Pulse Rate [ From Monitor] Respiratory 29 H 22 21 Rate Blood Pressure 113/71 112/66 112/66 O2 Sat by Pulse 96 96 100 Oximetry 07/09/20 07/09/20 07/09/20 13:25 13:30 13:45 Temperature Pulse Rate 114 H 112 H 100 H Pulse Rate [ From Monitor] Respiratory 20 18 Rate Blood Pressure 112/66 95/68 109/76 O2 Sat by Pulse 96 96 Oximetry 07/09/20 07/09/20 07/09/20 14:00 14:15 14:30 Temperature Pulse Rate 97 H 91 H 89 Pulse Rate [ From Monitor] Respiratory 14 27 H 16 Rate Blood Pressure 111/63 106/64 101/60 O2 Sat by Pulse 98 98 96 Oximetry 07/09/20 07/09/20 07/09/20 14:45 15:01 15:15 Temperature Pulse Rate 83 75 92 H Pulse Rate [ From Monitor] Respiratory 19 17 12 Rate Blood Pressure 102/61 133/72 122/59 O2 Sat by Pulse 98 98 95 Oximetry 07/09/20 07/09/20 07/09/20 15:30 15:45 16:00 Temperature Pulse Rate 92 H 97 H 89 Pulse Rate [ From Monitor] Respiratory 21 26 H 17 Rate Blood Pressure 102/60 133/72 98/62 O2 Sat by Pulse 95 93 96 Oximetry 07/09/20 16:15 Temperature Pulse Rate 92 H Pulse Rate [ From Monitor] Respiratory 24 Rate Blood Pressure 98/62 O2 Sat by Pulse 97 Oximetry Constitutional: no acute distress, other (middle aged obese male with mildly increased respiratory effort at rest on MVS) Eyes: non-icteric ENT: oropharynx moist, other (ETT 24 cm CHILO) Neck: supple, no JVD Effort: mildly labored Ascultation: Bilateral: diminished breath sounds, rhonchi (scant), other (right chest tube) Percussion: Bilateral: not dull Cardiovascular: regular rate and rhythm, other (No R/M) Gastrointestinal: normoactive bowel sounds, soft, non-tender, other (distended and firm) Integumentary: normal Extremities: no cyanosis, no edema, pulses normal, no ischemia or petechiae Neurologic: non-focal exam (non focal grossly; weak), pupils equal and round, CN II-XII normal Psychiatric: mood appropriate, affect normal CBC and BMP: 07/08/20 04:58 07/09/20 Unknown ABG, PT/INR, D-dimer: ABG ABG pH 7.428 pH Units (7.350-7.450) 07/08/20 Unknown POC ABG pCO2 47.1 mmHg (32.0-48.0) 07/05/20 05:25 ABG pCO2 53.1 mm Hg 07/08/20 Unknown POC ABG pO2 198.6 mmHg (83-108) H 07/05/20 05:25 ABG pO2 75.3 mm Hg (80.0-90.0) L 07/08/20 Unknown POC ABG HCO3 37.5 07/05/20 05:25 ABG O2 Saturation 96.5 % (95.0-99.0) 07/08/20 Unknown PT/INR, D-dimer PT 11.8 Sec. (12.2-14.9) L 06/22/20 14:29 INR 0.88 (0.87-1.13) 06/22/20 14:29 D-Dimer 1887.82 ng/mlDDU (0-234) H 05/20/20 08:16 Abnormal lab findings: Abnormal Labs 05/09/20 05/09/20 05/09/20 12:59 12:59 12:59 WBC 11.8 H RBC Hgb Hct MCV 96 H MCH 34 H MCHC 35 H RDW Lymph % (Auto) 6.9 L Lymph # (Auto) 0.8 L [place] # (Auto) Baso # (Auto) Seg Neutrophils % 87.5 H Seg Neuts % (Manual) Lymphocytes % (Manual) Nucleated RBC % Seg Neutrophils # 10.3 H Seg Neutrophils # Man Lymphocytes # (Manual) Monocytes # (Manual) Eosinophils # (Manual) PT INR APTT D-Dimer Heparin Anti-Xa Level ABG pH POC ABG pCO2 POC ABG pO2 ABG pO2 ABG HCO3 ABG O2 Saturation ABG Base Excess ABG Hemoglobin ABG Oxyhemoglobin ABG Sodium ABG Potassium ABG Chloride ABG Glucose Oxyhemoglobin Carboxyhemoglobin Sodium 130 L Potassium 3.5 L Chloride 86.4 L Carbon Dioxide BUN 33 H Creatinine 2.3 H Glucose 156 H POC Glucose Lactic Acid Calcium Magnesium Ferritin Total Bilirubin 3.40 H Direct Bilirubin 1.7 H AST 385 H ALT 134 H Alkaline Phosphatase Lactate Dehydrogenase C-Reactive Protein Total Protein Albumin 3.0 L Triglycerides Lipase Arterial Blood Glucose Arterial Blood Ionized Calcium Urine WBC (Auto) Coronavirus (PCR) SARS-CoV-2 IgG Ab Crossmatch 05/09/20 05/09/20 05/09/20 12:59 12:59 12:59 WBC RBC Hgb Hct MCV MCH MCHC RDW Lymph % (Auto) Lymph # (Auto) [place] # (Auto) Baso # (Auto) Seg Neutrophils % Seg Neuts % (Manual) Lymphocytes % (Manual) Nucleated RBC % Seg Neutrophils # Seg Neutrophils # Man Lymphocytes # (Manual) Monocytes # (Manual) Eosinophils # (Manual) PT INR APTT D-Dimer 3242.51 H Heparin Anti-Xa Level ABG pH POC ABG pCO2 POC ABG pO2 ABG pO2 ABG HCO3 ABG O2 Saturation ABG Base Excess ABG Hemoglobin ABG Oxyhemoglobin ABG Sodium ABG Potassium ABG Chloride ABG Glucose Oxyhemoglobin Carboxyhemoglobin Sodium Potassium Chloride Carbon Dioxide BUN Creatinine Glucose 158 H POC Glucose Lactic Acid 3.50 H* Calcium Magnesium Ferritin Total Bilirubin Direct Bilirubin AST ALT Alkaline Phosphatase Lactate Dehydrogenase 2166 H C-Reactive Protein 39.00 H Total Protein Albumin Triglycerides Lipase Arterial Blood Glucose Arterial Blood Ionized Calcium Urine WBC (Auto) Coronavirus (PCR) SARS-CoV-2 IgG Ab Crossmatch 05/09/20 05/09/20 05/09/20 12:59 14:20 14:20 WBC RBC Hgb Hct MCV MCH MCHC RDW Lymph % (Auto) Lymph # (Auto) [place] # (Auto) Baso # (Auto) Seg Neutrophils % Seg Neuts % (Manual) Lymphocytes % (Manual) Nucleated RBC % Seg Neutrophils # Seg Neutrophils # Man Lymphocytes # (Manual) Monocytes # (Manual) Eosinophils # (Manual) PT INR APTT D-Dimer 2861.78 H Heparin Anti-Xa Level ABG pH POC ABG pCO2 POC ABG pO2 ABG pO2 ABG HCO3 ABG O2 Saturation ABG Base Excess ABG Hemoglobin ABG Oxyhemoglobin ABG Sodium ABG Potassium ABG Chloride ABG Glucose Oxyhemoglobin Carboxyhemoglobin Sodium Potassium Chloride Carbon Dioxide BUN Creatinine Glucose POC Glucose Lactic Acid 2.20 H* Calcium Magnesium Ferritin 72441.0 H Total Bilirubin Direct Bilirubin AST ALT Alkaline Phosphatase Lactate Dehydrogenase C-Reactive Protein Total Protein Albumin Triglycerides Lipase Arterial Blood Glucose Arterial Blood Ionized Calcium Urine WBC (Auto) Coronavirus (PCR) SARS-CoV-2 IgG Ab Crossmatch 05/09/20 05/09/20 05/09/20 14:20 14:20 15:56 WBC RBC Hgb Hct MCV MCH MCHC RDW Lymph % (Auto) Lymph # (Auto) [place] # (Auto) Baso # (Auto) Seg Neutrophils % Seg Neuts % (Manual) Lymphocytes % (Manual) Nucleated RBC % Seg Neutrophils # Seg Neutrophils # Man Lymphocytes # (Manual) Monocytes # (Manual) Eosinophils # (Manual) PT INR APTT D-Dimer Heparin Anti-Xa Level ABG pH POC ABG pCO2 POC ABG pO2 57.3 L ABG pO2 ABG HCO3 ABG O2 Saturation ABG Base Excess ABG Hemoglobin ABG Oxyhemoglobin 86.3 L ABG Sodium 129.9 L ABG Potassium ABG Chloride ABG Glucose 146 H Oxyhemoglobin Carboxyhemoglobin Sodium Potassium Chloride Carbon Dioxide BUN Creatinine Glucose 143 H POC Glucose Lactic Acid Calcium Magnesium Ferritin 51950.0 H Total Bilirubin Direct Bilirubin AST ALT Alkaline Phosphatase Lactate Dehydrogenase 1953 H C-Reactive Protein 33.50 H Total Protein Albumin Triglycerides Lipase Arterial Blood Glucose 146 H Arterial Blood Ionized Calcium 3.9 L Urine WBC (Auto) Coronavirus (PCR) SARS-CoV-2 IgG Ab Crossmatch 05/10/20 05/10/20 05/10/20 10:32 10:32 18:50 WBC 15.4 H RBC Hgb Hct MCV 97 H MCH 33 H MCHC RDW 13.1 L Lymph % (Auto) Lymph # (Auto) [place] # (Auto) Baso # (Auto) Seg Neutrophils % Seg Neuts % (Manual) 89.0 H Lymphocytes % (Manual) 8.0 L Nucleated RBC % Seg Neutrophils # Seg Neutrophils # Man 13.7 H Lymphocytes # (Manual) Monocytes # (Manual) Eosinophils # (Manual) PT INR APTT D-Dimer Heparin Anti-Xa Level ABG pH POC ABG pCO2 POC ABG pO2 ABG pO2 ABG HCO3 ABG O2 Saturation ABG Base Excess ABG Hemoglobin ABG Oxyhemoglobin ABG Sodium ABG Potassium ABG Chloride ABG Glucose Oxyhemoglobin Carboxyhemoglobin Sodium 136 L Potassium Chloride 97.4 L Carbon Dioxide BUN 37 H Creatinine 1.7 H Glucose 209 H POC Glucose Lactic Acid Calcium Magnesium Ferritin > 2000.0 H Total Bilirubin Direct Bilirubin AST ALT Alkaline Phosphatase Lactate Dehydrogenase C-Reactive Protein Total Protein Albumin Triglycerides Lipase Arterial Blood Glucose Arterial Blood Ionized Calcium Urine WBC (Auto) Coronavirus (PCR) SARS-CoV-2 IgG Ab Crossmatch 05/10/20 05/10/20 05/10/20 18:50 19:00 Unknown WBC RBC Hgb Hct MCV MCH MCHC RDW Lymph % (Auto) Lymph # (Auto) [place] # (Auto) Baso # (Auto) Seg Neutrophils % Seg Neuts % (Manual) Lymphocytes % (Manual) Nucleated RBC % Seg Neutrophils # Seg Neutrophils # Man Lymphocytes # (Manual) Monocytes # (Manual) Eosinophils # (Manual) PT INR APTT D-Dimer > 71984 H Heparin Anti-Xa Level ABG pH POC ABG pCO2 POC ABG pO2 ABG pO2 ABG HCO3 ABG O2 Saturation ABG Base Excess ABG Hemoglobin ABG Oxyhemoglobin ABG Sodium ABG Potassium ABG Chloride ABG Glucose Oxyhemoglobin Carboxyhemoglobin Sodium Potassium Chloride Carbon Dioxide BUN Creatinine Glucose POC Glucose Lactic Acid Calcium Magnesium Ferritin Total Bilirubin Direct Bilirubin AST ALT Alkaline Phosphatase Lactate Dehydrogenase 1879 H C-Reactive Protein 24.80 H Total Protein Albumin Triglycerides Lipase Arterial Blood Glucose Arterial Blood Ionized Calcium Urine WBC (Auto) 11.0 H Coronavirus (PCR) SARS-CoV-2 IgG Ab Crossmatch 05/10/20 05/11/20 05/11/20 Unknown 07:30 07:30 WBC RBC Hgb Hct MCV MCH MCHC RDW Lymph % (Auto) Lymph # (Auto) [place] # (Auto) Baso # (Auto) Seg Neutrophils % Seg Neuts % (Manual) Lymphocytes % (Manual) Nucleated RBC % Seg Neutrophils # Seg Neutrophils # Man Lymphocytes # (Manual) Monocytes # (Manual) Eosinophils # (Manual) PT INR APTT D-Dimer > 2000 H Heparin Anti-Xa Level ABG pH POC ABG pCO2 POC ABG pO2 ABG pO2 ABG HCO3 ABG O2 Saturation ABG Base Excess ABG Hemoglobin ABG Oxyhemoglobin ABG Sodium ABG Potassium ABG Chloride ABG Glucose Oxyhemoglobin Carboxyhemoglobin Sodium Potassium Chloride 96.3 L Carbon Dioxide BUN 36 H Creatinine Glucose 161 H POC Glucose Lactic Acid Calcium 8.3 L Magnesium Ferritin Total Bilirubin 1.50 H Direct Bilirubin 0.6 H AST 178 H ALT 111 H Alkaline Phosphatase Lactate Dehydrogenase C-Reactive Protein Total Protein Albumin 3.0 L Triglycerides Lipase Arterial Blood Glucose Arterial Blood Ionized Calcium Urine WBC (Auto) Coronavirus (PCR) Positive A SARS-CoV-2 IgG Ab Crossmatch 05/11/20 05/11/20 05/11/20 07:30 07:30 07:30 WBC RBC Hgb Hct MCV MCH MCHC RDW Lymph % (Auto) Lymph # (Auto) [place] # (Auto) Baso # (Auto) Seg Neutrophils % Seg Neuts % (Manual) Lymphocytes % (Manual) Nucleated RBC % Seg Neutrophils # Seg Neutrophils # Man Lymphocytes # (Manual) Monocytes # (Manual) Eosinophils # (Manual) PT INR APTT D-Dimer Heparin Anti-Xa Level ABG pH POC ABG pCO2 POC ABG pO2 ABG pO2 ABG HCO3 ABG O2 Saturation ABG Base Excess ABG Hemoglobin ABG Oxyhemoglobin ABG Sodium ABG Potassium ABG Chloride ABG Glucose Oxyhemoglobin Carboxyhemoglobin Sodium Potassium Chloride Carbon Dioxide BUN Creatinine Glucose POC Glucose Lactic Acid Calcium Magnesium Ferritin 54394.0 H Total Bilirubin Direct Bilirubin AST ALT Alkaline Phosphatase Lactate Dehydrogenase 1523 H C-Reactive Protein 12.90 H Total Protein Albumin Triglycerides Lipase Arterial Blood Glucose Arterial Blood Ionized Calcium Urine WBC (Auto) Coronavirus (PCR) SARS-CoV-2 IgG Ab Reactive A Crossmatch 05/13/20 05/13/20 05/15/20 05:20 05:20 08:15 WBC RBC Hgb Hct MCV MCH MCHC RDW Lymph % (Auto) Lymph # (Auto) [place] # (Auto) Baso # (Auto) Seg Neutrophils % Seg Neuts % (Manual) Lymphocytes % (Manual) Nucleated RBC % Seg Neutrophils # Seg Neutrophils # Man Lymphocytes # (Manual) Monocytes # (Manual) Eosinophils # (Manual) PT INR APTT D-Dimer > 65291 H 5318.28 H Heparin Anti-Xa Level ABG pH POC ABG pCO2 POC ABG pO2 ABG pO2 ABG HCO3 ABG O2 Saturation ABG Base Excess ABG Hemoglobin ABG Oxyhemoglobin ABG Sodium ABG Potassium ABG Chloride ABG Glucose Oxyhemoglobin Carboxyhemoglobin Sodium Potassium Chloride Carbon Dioxide 32 H BUN 30 H Creatinine Glucose 156 H POC Glucose Lactic Acid Calcium Magnesium 2.60 H Ferritin Total Bilirubin 1.40 H Direct Bilirubin AST 121 H ALT 119 H Alkaline Phosphatase Lactate Dehydrogenase 957 H C-Reactive Protein 4.00 H Total Protein Albumin 3.0 L Triglycerides Lipase Arterial Blood Glucose Arterial Blood Ionized Calcium Urine WBC (Auto) Coronavirus (PCR) SARS-CoV-2 IgG Ab Crossmatch 05/15/20 05/15/20 05/15/20 08:15 08:15 08:15 WBC 12.4 H RBC Hgb Hct MCV 98 H MCH 33 H MCHC RDW Lymph % (Auto) 9.7 L Lymph # (Auto) [place] # (Auto) Baso # (Auto) Seg Neutrophils % 86.8 H Seg Neuts % (Manual) Lymphocytes % (Manual) Nucleated RBC % Seg Neutrophils # 10.8 H Seg Neutrophils # Man Lymphocytes # (Manual) Monocytes # (Manual) Eosinophils # (Manual) PT INR APTT D-Dimer Heparin Anti-Xa Level ABG pH POC ABG pCO2 POC ABG pO2 ABG pO2 ABG HCO3 ABG O2 Saturation ABG Base Excess ABG Hemoglobin ABG Oxyhemoglobin ABG Sodium ABG Potassium ABG Chloride ABG Glucose Oxyhemoglobin Carboxyhemoglobin Sodium Potassium Chloride 94.8 L Carbon Dioxide 32 H BUN 22 H Creatinine Glucose 115 H POC Glucose Lactic Acid Calcium 8.3 L Magnesium Ferritin 2494.0 H Total Bilirubin Direct Bilirubin AST 73 H ALT 121 H Alkaline Phosphatase Lactate Dehydrogenase 835 H C-Reactive Protein 3.40 H Total Protein 6.1 L Albumin 3.0 L Triglycerides Lipase Arterial Blood Glucose Arterial Blood Ionized Calcium Urine WBC (Auto) Coronavirus (PCR) SARS-CoV-2 IgG Ab Crossmatch 05/17/20 05/17/20 05/17/20 05:50 05:50 05:50 WBC RBC Hgb Hct MCV MCH MCHC RDW Lymph % (Auto) Lymph # (Auto) [place] # (Auto) Baso # (Auto) Seg Neutrophils % Seg Neuts % (Manual) Lymphocytes % (Manual) Nucleated RBC % Seg Neutrophils # Seg Neutrophils # Man Lymphocytes # (Manual) Monocytes # (Manual) Eosinophils # (Manual) PT INR APTT D-Dimer 2911.42 H Heparin Anti-Xa Level ABG pH POC ABG pCO2 POC ABG pO2 ABG pO2 ABG HCO3 ABG O2 Saturation ABG Base Excess ABG Hemoglobin ABG Oxyhemoglobin ABG Sodium ABG Potassium ABG Chloride ABG Glucose Oxyhemoglobin Carboxyhemoglobin Sodium 136 L Potassium Chloride 96.0 L Carbon Dioxide 34 H BUN 22 H Creatinine Glucose 140 H POC Glucose Lactic Acid Calcium Magnesium Ferritin 2082.0 H Total Bilirubin Direct Bilirubin AST ALT 75 H Alkaline Phosphatase Lactate Dehydrogenase 601 H C-Reactive Protein 2.70 H Total Protein Albumin 2.9 L Triglycerides Lipase Arterial Blood Glucose Arterial Blood Ionized Calcium Urine WBC (Auto) Coronavirus (PCR) SARS-CoV-2 IgG Ab Crossmatch 05/17/20 05/18/20 05/20/20 05:50 12:22 08:16 WBC RBC Hgb Hct MCV 98 H MCH 33 H MCHC RDW Lymph % (Auto) 8.0 L Lymph # (Auto) 0.8 L [place] # (Auto) Baso # (Auto) Seg Neutrophils % 89.3 H Seg Neuts % (Manual) Lymphocytes % (Manual) Nucleated RBC % Seg Neutrophils # 8.8 H Seg Neutrophils # Man Lymphocytes # (Manual) Monocytes # (Manual) Eosinophils # (Manual) PT INR APTT D-Dimer 1887.82 H Heparin Anti-Xa Level ABG pH POC ABG pCO2 POC ABG pO2 ABG pO2 ABG HCO3 ABG O2 Saturation ABG Base Excess ABG Hemoglobin ABG Oxyhemoglobin ABG Sodium ABG Potassium ABG Chloride ABG Glucose Oxyhemoglobin Carboxyhemoglobin Sodium Potassium Chloride Carbon Dioxide BUN Creatinine Glucose POC Glucose 178 H Lactic Acid Calcium Magnesium Ferritin Total Bilirubin Direct Bilirubin AST ALT Alkaline Phosphatase Lactate Dehydrogenase C-Reactive Protein Total Protein Albumin Triglycerides Lipase Arterial Blood Glucose Arterial Blood Ionized Calcium Urine WBC (Auto) Coronavirus (PCR) SARS-CoV-2 IgG Ab Crossmatch 05/20/20 05/20/20 05/21/20 08:16 08:16 21:10 WBC RBC Hgb Hct MCV MCH MCHC RDW Lymph % (Auto) Lymph # (Auto) [place] # (Auto) Baso # (Auto) Seg Neutrophils % Seg Neuts % (Manual) Lymphocytes % (Manual) Nucleated RBC % Seg Neutrophils # Seg Neutrophils # Man Lymphocytes # (Manual) Monocytes # (Manual) Eosinophils # (Manual) PT INR APTT D-Dimer Heparin Anti-Xa Level ABG pH 7.483 H POC ABG pCO2 POC ABG pO2 ABG pO2 50.0 L ABG HCO3 27.0 H ABG O2 Saturation 86.2 L ABG Base Excess 3.7 H ABG Hemoglobin ABG Oxyhemoglobin ABG Sodium ABG Potassium ABG Chloride ABG Glucose Oxyhemoglobin 84.2 L Carboxyhemoglobin Sodium Potassium Chloride Carbon Dioxide BUN Creatinine Glucose POC Glucose Lactic Acid Calcium Magnesium Ferritin 1960.0 H Total Bilirubin Direct Bilirubin AST ALT Alkaline Phosphatase Lactate Dehydrogenase 705 H C-Reactive Protein 3.10 H Total Protein Albumin Triglycerides Lipase Arterial Blood Glucose Arterial Blood Ionized Calcium Urine WBC (Auto) Coronavirus (PCR) SARS-CoV-2 IgG Ab Crossmatch 05/22/20 05/22/20 05/22/20 04:01 07:53 07:53 WBC 19.2 H RBC Hgb Hct MCV 98 H MCH 34 H MCHC RDW Lymph % (Auto) Lymph # (Auto) [place] # (Auto) Baso # (Auto) Seg Neutrophils % Seg Neuts % (Manual) 96.0 H Lymphocytes % (Manual) 1.0 L Nucleated RBC % Seg Neutrophils # Seg Neutrophils # Man 18.4 H Lymphocytes # (Manual) 0.2 L Monocytes # (Manual) Eosinophils # (Manual) PT INR APTT D-Dimer Heparin Anti-Xa Level ABG pH POC ABG pCO2 53.8 H POC ABG pO2 125.5 H ABG pO2 ABG HCO3 ABG O2 Saturation ABG Base Excess ABG Hemoglobin ABG Oxyhemoglobin ABG Sodium 131.8 L ABG Potassium 4.8 H ABG Chloride 94.0 L ABG Glucose 163 H Oxyhemoglobin Carboxyhemoglobin Sodium 131 L Potassium Chloride 93.4 L Carbon Dioxide BUN 40 H Creatinine Glucose 176 H POC Glucose Lactic Acid Calcium Magnesium 2.70 H Ferritin Total Bilirubin 1.80 H Direct Bilirubin AST 45 H ALT 116 H Alkaline Phosphatase 181 H Lactate Dehydrogenase C-Reactive Protein Total Protein Albumin 2.6 L Triglycerides Lipase Arterial Blood Glucose 163 H Arterial Blood Ionized Calcium 4.5 L Urine WBC (Auto) Coronavirus (PCR) SARS-CoV-2 IgG Ab Crossmatch 05/23/20 05/24/20 05/24/20 04:17 03:07 04:08 WBC RBC Hgb Hct MCV MCH MCHC RDW Lymph % (Auto) Lymph # (Auto) [place] # (Auto) Baso # (Auto) Seg Neutrophils % Seg Neuts % (Manual) Lymphocytes % (Manual) Nucleated RBC % Seg Neutrophils # Seg Neutrophils # Man Lymphocytes # (Manual) Monocytes # (Manual) Eosinophils # (Manual) PT INR APTT D-Dimer Heparin Anti-Xa Level ABG pH 7.328 L POC ABG pCO2 POC ABG pO2 ABG pO2 72.8 L 73.4 L ABG HCO3 31.0 H 34.0 H ABG O2 Saturation 93.5 L ABG Base Excess 3.5 H 7.7 H ABG Hemoglobin 13.3 L 12.1 L ABG Oxyhemoglobin ABG Sodium ABG Potassium ABG Chloride ABG Glucose Oxyhemoglobin 91.5 L 94.3 L Carboxyhemoglobin Sodium Potassium Chloride Carbon Dioxide BUN Creatinine Glucose POC Glucose 155 H Lactic Acid Calcium Magnesium Ferritin Total Bilirubin Direct Bilirubin AST ALT Alkaline Phosphatase Lactate Dehydrogenase C-Reactive Protein Total Protein Albumin Triglycerides Lipase Arterial Blood Glucose Arterial Blood Ionized Calcium Urine WBC (Auto) Coronavirus (PCR) SARS-CoV-2 IgG Ab Crossmatch 05/24/20 05/24/20 05/24/20 09:33 12:21 17:52 WBC RBC Hgb Hct MCV MCH MCHC RDW Lymph % (Auto) Lymph # (Auto) [place] # (Auto) Baso # (Auto) Seg Neutrophils % Seg Neuts % (Manual) Lymphocytes % (Manual) Nucleated RBC % Seg Neutrophils # Seg Neutrophils # Man Lymphocytes # (Manual) Monocytes # (Manual) Eosinophils # (Manual) PT INR APTT D-Dimer Heparin Anti-Xa Level ABG pH POC ABG pCO2 POC ABG pO2 ABG pO2 ABG HCO3 ABG O2 Saturation ABG Base Excess ABG Hemoglobin ABG Oxyhemoglobin ABG Sodium ABG Potassium ABG Chloride ABG Glucose Oxyhemoglobin Carboxyhemoglobin Sodium Potassium Chloride Carbon Dioxide 34 H D BUN 28 H Creatinine 0.7 L Glucose 168 H POC Glucose 173 H 164 H Lactic Acid Calcium Magnesium Ferritin Total Bilirubin Direct Bilirubin AST ALT Alkaline Phosphatase Lactate Dehydrogenase C-Reactive Protein Total Protein Albumin Triglycerides Lipase Arterial Blood Glucose Arterial Blood Ionized Calcium Urine WBC (Auto) Coronavirus (PCR) SARS-CoV-2 IgG Ab Crossmatch 05/24/20 05/25/20 05/25/20 23:47 04:29 05:46 WBC RBC Hgb Hct MCV MCH MCHC RDW Lymph % (Auto) Lymph # (Auto) [place] # (Auto) Baso # (Auto) Seg Neutrophils % Seg Neuts % (Manual) Lymphocytes % (Manual) Nucleated RBC % Seg Neutrophils # Seg Neutrophils # Man Lymphocytes # (Manual) Monocytes # (Manual) Eosinophils # (Manual) PT INR APTT D-Dimer Heparin Anti-Xa Level ABG pH POC ABG pCO2 68.6 H POC ABG pO2 ABG pO2 ABG HCO3 ABG O2 Saturation ABG Base Excess ABG Hemoglobin ABG Oxyhemoglobin ABG Sodium ABG Potassium 4.7 H ABG Chloride ABG Glucose 226 H Oxyhemoglobin Carboxyhemoglobin Sodium Potassium Chloride Carbon Dioxide BUN Creatinine Glucose POC Glucose 171 H 201 H Lactic Acid Calcium Magnesium Ferritin Total Bilirubin Direct Bilirubin AST ALT Alkaline Phosphatase Lactate Dehydrogenase C-Reactive Protein Total Protein Albumin Triglycerides Lipase Arterial Blood Glucose 226 H Arterial Blood Ionized Calcium Urine WBC (Auto) Coronavirus (PCR) SARS-CoV-2 IgG Ab Crossmatch 05/25/20 05/25/20 05/25/20 08:37 08:37 12:38 WBC 12.0 H RBC 3.64 L Hgb Hct MCV 99 H MCH 33 H MCHC RDW Lymph % (Auto) Lymph # (Auto) [place] # (Auto) Baso # (Auto) Seg Neutrophils % Seg Neuts % (Manual) Lymphocytes % (Manual) Nucleated RBC % Seg Neutrophils # Seg Neutrophils # Man Lymphocytes # (Manual) Monocytes # (Manual) Eosinophils # (Manual) PT INR APTT D-Dimer Heparin Anti-Xa Level ABG pH POC ABG pCO2 POC ABG pO2 ABG pO2 ABG HCO3 ABG O2 Saturation ABG Base Excess ABG Hemoglobin ABG Oxyhemoglobin ABG Sodium ABG Potassium ABG Chloride ABG Glucose Oxyhemoglobin Carboxyhemoglobin Sodium Potassium Chloride 97.3 L Carbon Dioxide 35 H BUN 25 H Creatinine 0.7 L Glucose 191 H POC Glucose 182 H Lactic Acid Calcium Magnesium Ferritin Total Bilirubin Direct Bilirubin AST ALT Alkaline Phosphatase Lactate Dehydrogenase C-Reactive Protein Total Protein Albumin Triglycerides Lipase Arterial Blood Glucose Arterial Blood Ionized Calcium Urine WBC (Auto) Coronavirus (PCR) SARS-CoV-2 IgG Ab Crossmatch 05/25/20 05/26/20 05/26/20 18:16 00:06 04:50 WBC RBC Hgb Hct MCV MCH MCHC RDW Lymph % (Auto) Lymph # (Auto) [place] # (Auto) Baso # (Auto) Seg Neutrophils % Seg Neuts % (Manual) Lymphocytes % (Manual) Nucleated RBC % Seg Neutrophils # Seg Neutrophils # Man Lymphocytes # (Manual) Monocytes # (Manual) Eosinophils # (Manual) PT INR APTT D-Dimer Heparin Anti-Xa Level ABG pH POC ABG pCO2 POC ABG pO2 ABG pO2 221.5 H ABG HCO3 40.4 H ABG O2 Saturation 99.3 H ABG Base Excess 12.8 H ABG Hemoglobin 10.4 L ABG Oxyhemoglobin ABG Sodium ABG Potassium ABG Chloride ABG Glucose Oxyhemoglobin Carboxyhemoglobin Sodium Potassium Chloride Carbon Dioxide BUN Creatinine Glucose POC Glucose 176 H 152 H Lactic Acid Calcium Magnesium Ferritin Total Bilirubin Direct Bilirubin AST ALT Alkaline Phosphatase Lactate Dehydrogenase C-Reactive Protein Total Protein Albumin Triglycerides Lipase Arterial Blood Glucose Arterial Blood Ionized Calcium Urine WBC (Auto) Coronavirus (PCR) SARS-CoV-2 IgG Ab Crossmatch 05/26/20 05/26/20 05/26/20 06:11 07:51 07:51 WBC 13.4 H RBC 3.64 L Hgb Hct MCV 98 H MCH 33 H MCHC RDW Lymph % (Auto) Lymph # (Auto) [place] # (Auto) Baso # (Auto) Seg Neutrophils % Seg Neuts % (Manual) Lymphocytes % (Manual) Nucleated RBC % Seg Neutrophils # Seg Neutrophils # Man Lymphocytes # (Manual) Monocytes # (Manual) Eosinophils # (Manual) PT INR APTT D-Dimer Heparin Anti-Xa Level ABG pH POC ABG pCO2 POC ABG pO2 ABG pO2 ABG HCO3 ABG O2 Saturation ABG Base Excess ABG Hemoglobin ABG Oxyhemoglobin ABG Sodium ABG Potassium ABG Chloride ABG Glucose Oxyhemoglobin Carboxyhemoglobin Sodium Potassium Chloride 96.6 L Carbon Dioxide 39 H BUN 29 H Creatinine 0.7 L Glucose 174 H POC Glucose 165 H Lactic Acid Calcium Magnesium Ferritin Total Bilirubin Direct Bilirubin AST ALT Alkaline Phosphatase Lactate Dehydrogenase C-Reactive Protein Total Protein Albumin Triglycerides Lipase Arterial Blood Glucose Arterial Blood Ionized Calcium Urine WBC (Auto) Coronavirus (PCR) SARS-CoV-2 IgG Ab Crossmatch 05/26/20 05/27/20 05/27/20 23:23 03:43 05:29 WBC RBC Hgb Hct MCV MCH MCHC RDW Lymph % (Auto) Lymph # (Auto) [place] # (Auto) Baso # (Auto) Seg Neutrophils % Seg Neuts % (Manual) Lymphocytes % (Manual) Nucleated RBC % Seg Neutrophils # Seg Neutrophils # Man Lymphocytes # (Manual) Monocytes # (Manual) Eosinophils # (Manual) PT INR APTT D-Dimer Heparin Anti-Xa Level ABG pH 7.480 H POC ABG pCO2 52.4 H POC ABG pO2 61.4 L ABG pO2 ABG HCO3 ABG O2 Saturation ABG Base Excess ABG Hemoglobin ABG Oxyhemoglobin ABG Sodium 134.9 L ABG Potassium ABG Chloride 95.0 L ABG Glucose 221 H Oxyhemoglobin Carboxyhemoglobin Sodium Potassium Chloride Carbon Dioxide BUN Creatinine Glucose POC Glucose 169 H 227 H Lactic Acid Calcium Magnesium Ferritin Total Bilirubin Direct Bilirubin AST ALT Alkaline Phosphatase Lactate Dehydrogenase C-Reactive Protein Total Protein Albumin Triglycerides Lipase Arterial Blood Glucose 221 H Arterial Blood Ionized Calcium 4.5 L Urine WBC (Auto) Coronavirus (PCR) SARS-CoV-2 IgG Ab Crossmatch 05/27/20 05/27/20 05/27/20 07:19 12:18 13:50 WBC RBC Hgb Hct MCV MCH MCHC RDW Lymph % (Auto) Lymph # (Auto) [place] # (Auto) Baso # (Auto) Seg Neutrophils % Seg Neuts % (Manual) Lymphocytes % (Manual) Nucleated RBC % Seg Neutrophils # Seg Neutrophils # Man Lymphocytes # (Manual) Monocytes # (Manual) Eosinophils # (Manual) PT INR APTT D-Dimer Heparin Anti-Xa Level ABG pH POC ABG pCO2 POC ABG pO2 ABG pO2 ABG HCO3 ABG O2 Saturation ABG Base Excess ABG Hemoglobin ABG Oxyhemoglobin ABG Sodium ABG Potassium ABG Chloride ABG Glucose Oxyhemoglobin Carboxyhemoglobin Sodium Potassium Chloride Carbon Dioxide BUN Creatinine Glucose POC Glucose 114 H 148 H Lactic Acid Calcium Magnesium Ferritin Total Bilirubin Direct Bilirubin AST ALT Alkaline Phosphatase Lactate Dehydrogenase C-Reactive Protein Total Protein Albumin Triglycerides 247 H Lipase Arterial Blood Glucose Arterial Blood Ionized Calcium Urine WBC (Auto) Coronavirus (PCR) SARS-CoV-2 IgG Ab Crossmatch 05/28/20 05/28/20 05/28/20 00:13 04:16 05:22 WBC RBC Hgb Hct MCV MCH MCHC RDW Lymph % (Auto) Lymph # (Auto) [place] # (Auto) Baso # (Auto) Seg Neutrophils % Seg Neuts % (Manual) Lymphocytes % (Manual) Nucleated RBC % Seg Neutrophils # Seg Neutrophils # Man Lymphocytes # (Manual) Monocytes # (Manual) Eosinophils # (Manual) PT INR APTT D-Dimer Heparin Anti-Xa Level ABG pH POC ABG pCO2 64.4 H POC ABG pO2 60.5 L ABG pO2 ABG HCO3 ABG O2 Saturation ABG Base Excess ABG Hemoglobin ABG Oxyhemoglobin ABG Sodium ABG Potassium ABG Chloride 95.0 L ABG Glucose 209 H Oxyhemoglobin Carboxyhemoglobin Sodium Potassium Chloride Carbon Dioxide BUN Creatinine Glucose POC Glucose 155 H 186 H Lactic Acid Calcium Magnesium Ferritin Total Bilirubin Direct Bilirubin AST ALT Alkaline Phosphatase Lactate Dehydrogenase C-Reactive Protein Total Protein Albumin Triglycerides Lipase Arterial Blood Glucose 209 H Arterial Blood Ionized Calcium Urine WBC (Auto) Coronavirus (PCR) SARS-CoV-2 IgG Ab Crossmatch 05/28/20 05/28/20 05/29/20 12:45 17:39 00:37 WBC RBC Hgb Hct MCV MCH MCHC RDW Lymph % (Auto) Lymph # (Auto) [place] # (Auto) Baso # (Auto) Seg Neutrophils % Seg Neuts % (Manual) Lymphocytes % (Manual) Nucleated RBC % Seg Neutrophils # Seg Neutrophils # Man Lymphocytes # (Manual) Monocytes # (Manual) Eosinophils # (Manual) PT INR APTT D-Dimer Heparin Anti-Xa Level ABG pH POC ABG pCO2 POC ABG pO2 ABG pO2 ABG HCO3 ABG O2 Saturation ABG Base Excess ABG Hemoglobin ABG Oxyhemoglobin ABG Sodium ABG Potassium ABG Chloride ABG Glucose Oxyhemoglobin Carboxyhemoglobin Sodium Potassium Chloride Carbon Dioxide BUN Creatinine Glucose POC Glucose 143 H 164 H 221 H Lactic Acid Calcium Magnesium Ferritin Total Bilirubin Direct Bilirubin AST ALT Alkaline Phosphatase Lactate Dehydrogenase C-Reactive Protein Total Protein Albumin Triglycerides Lipase Arterial Blood Glucose Arterial Blood Ionized Calcium Urine WBC (Auto) Coronavirus (PCR) SARS-CoV-2 IgG Ab Crossmatch 05/29/20 05/29/20 05/29/20 04:15 05:33 12:34 WBC RBC Hgb Hct MCV MCH MCHC RDW Lymph % (Auto) Lymph # (Auto) [place] # (Auto) Baso # (Auto) Seg Neutrophils % Seg Neuts % (Manual) Lymphocytes % (Manual) Nucleated RBC % Seg Neutrophils # Seg Neutrophils # Man Lymphocytes # (Manual) Monocytes # (Manual) Eosinophils # (Manual) PT INR APTT D-Dimer Heparin Anti-Xa Level ABG pH 7.463 H POC ABG pCO2 56.3 H POC ABG pO2 81.2 L ABG pO2 ABG HCO3 ABG O2 Saturation ABG Base Excess ABG Hemoglobin ABG Oxyhemoglobin ABG Sodium ABG Potassium ABG Chloride 96.0 L ABG Glucose 194 H Oxyhemoglobin Carboxyhemoglobin Sodium Potassium Chloride Carbon Dioxide BUN Creatinine Glucose POC Glucose 133 H 221 H Lactic Acid Calcium Magnesium Ferritin Total Bilirubin Direct Bilirubin AST ALT Alkaline Phosphatase Lactate Dehydrogenase C-Reactive Protein Total Protein Albumin Triglycerides Lipase Arterial Blood Glucose 194 H Arterial Blood Ionized Calcium 4.5 L Urine WBC (Auto) Coronavirus (PCR) SARS-CoV-2 IgG Ab Crossmatch 05/29/20 05/30/20 05/30/20 18:07 00:12 05:38 WBC RBC Hgb Hct MCV MCH MCHC RDW Lymph % (Auto) Lymph # (Auto) [place] # (Auto) Baso # (Auto) Seg Neutrophils % Seg Neuts % (Manual) Lymphocytes % (Manual) Nucleated RBC % Seg Neutrophils # Seg Neutrophils # Man Lymphocytes # (Manual) Monocytes # (Manual) Eosinophils # (Manual) PT INR APTT D-Dimer Heparin Anti-Xa Level ABG pH POC ABG pCO2 POC ABG pO2 ABG pO2 ABG HCO3 ABG O2 Saturation ABG Base Excess ABG Hemoglobin ABG Oxyhemoglobin ABG Sodium ABG Potassium ABG Chloride ABG Glucose Oxyhemoglobin Carboxyhemoglobin Sodium Potassium Chloride Carbon Dioxide BUN Creatinine Glucose POC Glucose 162 H 190 H 208 H Lactic Acid Calcium Magnesium Ferritin Total Bilirubin Direct Bilirubin AST ALT Alkaline Phosphatase Lactate Dehydrogenase C-Reactive Protein Total Protein Albumin Triglycerides Lipase Arterial Blood Glucose Arterial Blood Ionized Calcium Urine WBC (Auto) Coronavirus (PCR) SARS-CoV-2 IgG Ab Crossmatch 05/30/20 05/30/20 05/30/20 09:30 11:35 11:54 WBC 12.4 H RBC 3.48 L Hgb 11.3 L Hct 34.6 L MCV 99 H MCH 33 H MCHC RDW Lymph % (Auto) Lymph # (Auto) [place] # (Auto) Baso # (Auto) Seg Neutrophils % Seg Neuts % (Manual) Lymphocytes % (Manual) Nucleated RBC % Seg Neutrophils # Seg Neutrophils # Man Lymphocytes # (Manual) Monocytes # (Manual) Eosinophils # (Manual) PT INR APTT D-Dimer Heparin Anti-Xa Level ABG pH 7.455 H POC ABG pCO2 57.5 H POC ABG pO2 81.5 L ABG pO2 ABG HCO3 ABG O2 Saturation ABG Base Excess ABG Hemoglobin ABG Oxyhemoglobin ABG Sodium ABG Potassium ABG Chloride 96.0 L ABG Glucose 204 H Oxyhemoglobin Carboxyhemoglobin Sodium Potassium Chloride Carbon Dioxide BUN Creatinine Glucose POC Glucose 183 H Lactic Acid Calcium Magnesium Ferritin Total Bilirubin Direct Bilirubin AST ALT Alkaline Phosphatase Lactate Dehydrogenase C-Reactive Protein Total Protein Albumin Triglycerides Lipase Arterial Blood Glucose 204 H Arterial Blood Ionized Calcium Urine WBC (Auto) Coronavirus (PCR) SARS-CoV-2 IgG Ab Crossmatch 05/30/20 05/31/20 05/31/20 18:01 00:10 03:22 WBC RBC Hgb Hct MCV MCH MCHC RDW Lymph % (Auto) Lymph # (Auto) [place] # (Auto) Baso # (Auto) Seg Neutrophils % Seg Neuts % (Manual) Lymphocytes % (Manual) Nucleated RBC % Seg Neutrophils # Seg Neutrophils # Man Lymphocytes # (Manual) Monocytes # (Manual) Eosinophils # (Manual) PT INR APTT D-Dimer Heparin Anti-Xa Level ABG pH POC ABG pCO2 60.4 H POC ABG pO2 71.5 L ABG pO2 ABG HCO3 ABG O2 Saturation ABG Base Excess ABG Hemoglobin ABG Oxyhemoglobin ABG Sodium ABG Potassium ABG Chloride 96.0 L ABG Glucose 169 H Oxyhemoglobin Carboxyhemoglobin Sodium Potassium Chloride Carbon Dioxide BUN Creatinine Glucose POC Glucose 184 H 135 H Lactic Acid Calcium Magnesium Ferritin Total Bilirubin Direct Bilirubin AST ALT Alkaline Phosphatase Lactate Dehydrogenase C-Reactive Protein Total Protein Albumin Triglycerides Lipase Arterial Blood Glucose 169 H Arterial Blood Ionized Calcium 4.5 L Urine WBC (Auto) Coronavirus (PCR) SARS-CoV-2 IgG Ab Crossmatch 05/31/20 05/31/20 05/31/20 05:24 11:18 14:41 WBC RBC Hgb Hct MCV MCH MCHC RDW Lymph % (Auto) Lymph # (Auto) [place] # (Auto) Baso # (Auto) Seg Neutrophils % Seg Neuts % (Manual) Lymphocytes % (Manual) Nucleated RBC % Seg Neutrophils # Seg Neutrophils # Man Lymphocytes # (Manual) Monocytes # (Manual) Eosinophils # (Manual) PT INR APTT D-Dimer Heparin Anti-Xa Level ABG pH POC ABG pCO2 POC ABG pO2 ABG pO2 ABG HCO3 ABG O2 Saturation ABG Base Excess ABG Hemoglobin ABG Oxyhemoglobin ABG Sodium ABG Potassium ABG Chloride ABG Glucose Oxyhemoglobin Carboxyhemoglobin Sodium Potassium Chloride 96.8 L Carbon Dioxide 37 H BUN 31 H Creatinine 0.6 L Glucose 213 H POC Glucose 164 H 208 H Lactic Acid Calcium Magnesium Ferritin Total Bilirubin Direct Bilirubin AST ALT Alkaline Phosphatase Lactate Dehydrogenase C-Reactive Protein Total Protein Albumin Triglycerides Lipase Arterial Blood Glucose Arterial Blood Ionized Calcium Urine WBC (Auto) Coronavirus (PCR) SARS-CoV-2 IgG Ab Crossmatch 05/31/20 05/31/20 06/01/20 17:37 23:47 03:48 WBC RBC Hgb Hct MCV MCH MCHC RDW Lymph % (Auto) Lymph # (Auto) [place] # (Auto) Baso # (Auto) Seg Neutrophils % Seg Neuts % (Manual) Lymphocytes % (Manual) Nucleated RBC % Seg Neutrophils # Seg Neutrophils # Man Lymphocytes # (Manual) Monocytes # (Manual) Eosinophils # (Manual) PT INR APTT D-Dimer Heparin Anti-Xa Level ABG pH POC ABG pCO2 59.7 H POC ABG pO2 73.9 L ABG pO2 ABG HCO3 ABG O2 Saturation ABG Base Excess ABG Hemoglobin ABG Oxyhemoglobin ABG Sodium ABG Potassium ABG Chloride 95.0 L ABG Glucose 256 H Oxyhemoglobin Carboxyhemoglobin Sodium Potassium Chloride Carbon Dioxide BUN Creatinine Glucose POC Glucose 168 H 178 H Lactic Acid Calcium Magnesium Ferritin Total Bilirubin Direct Bilirubin AST ALT Alkaline Phosphatase Lactate Dehydrogenase C-Reactive Protein Total Protein Albumin Triglycerides Lipase Arterial Blood Glucose 256 H Arterial Blood Ionized Calcium Urine WBC (Auto) Coronavirus (PCR) SARS-CoV-2 IgG Ab Crossmatch 06/01/20 06/01/20 06/01/20 05:01 07:47 07:47 WBC 14.4 H RBC 3.46 L Hgb 11.1 L Hct 34.3 L MCV 99 H MCH MCHC RDW Lymph % (Auto) Lymph # (Auto) [place] # (Auto) Baso # (Auto) Seg Neutrophils % Seg Neuts % (Manual) 86.0 H Lymphocytes % (Manual) 9.0 L Nucleated RBC % Seg Neutrophils # Seg Neutrophils # Man 12.4 H Lymphocytes # (Manual) Monocytes # (Manual) Eosinophils # (Manual) PT INR APTT D-Dimer Heparin Anti-Xa Level ABG pH POC ABG pCO2 POC ABG pO2 ABG pO2 ABG HCO3 ABG O2 Saturation ABG Base Excess ABG Hemoglobin ABG Oxyhemoglobin ABG Sodium ABG Potassium ABG Chloride ABG Glucose Oxyhemoglobin Carboxyhemoglobin Sodium Potassium Chloride Carbon Dioxide BUN Creatinine Glucose POC Glucose 197 H Lactic Acid Calcium Magnesium Ferritin Total Bilirubin Direct Bilirubin AST ALT Alkaline Phosphatase Lactate Dehydrogenase C-Reactive Protein Total Protein Albumin Triglycerides 244 H Lipase Arterial Blood Glucose Arterial Blood Ionized Calcium Urine WBC (Auto) Coronavirus (PCR) SARS-CoV-2 IgG Ab Crossmatch 06/01/20 06/01/20 06/01/20 07:47 11:46 18:15 WBC RBC Hgb Hct MCV MCH MCHC RDW Lymph % (Auto) Lymph # (Auto) [place] # (Auto) Baso # (Auto) Seg Neutrophils % Seg Neuts % (Manual) Lymphocytes % (Manual) Nucleated RBC % Seg Neutrophils # Seg Neutrophils # Man Lymphocytes # (Manual) Monocytes # (Manual) Eosinophils # (Manual) PT INR APTT D-Dimer Heparin Anti-Xa Level ABG pH POC ABG pCO2 POC ABG pO2 ABG pO2 ABG HCO3 ABG O2 Saturation ABG Base Excess ABG Hemoglobin ABG Oxyhemoglobin ABG Sodium ABG Potassium ABG Chloride ABG Glucose Oxyhemoglobin Carboxyhemoglobin Sodium Potassium Chloride 95.4 L Carbon Dioxide 35 H BUN 30 H Creatinine 0.5 L Glucose 214 H POC Glucose 181 H 221 H Lactic Acid Calcium Magnesium Ferritin Total Bilirubin Direct Bilirubin AST 54 H ALT 235 H Alkaline Phosphatase Lactate Dehydrogenase C-Reactive Protein Total Protein Albumin 2.9 L Triglycerides Lipase Arterial Blood Glucose Arterial Blood Ionized Calcium Urine WBC (Auto) Coronavirus (PCR) SARS-CoV-2 IgG Ab Crossmatch 06/01/20 06/02/20 06/02/20 23:12 04:00 05:31 WBC RBC Hgb Hct MCV MCH MCHC RDW Lymph % (Auto) Lymph # (Auto) [place] # (Auto) Baso # (Auto) Seg Neutrophils % Seg Neuts % (Manual) Lymphocytes % (Manual) Nucleated RBC % Seg Neutrophils # Seg Neutrophils # Man Lymphocytes # (Manual) Monocytes # (Manual) Eosinophils # (Manual) PT INR APTT D-Dimer Heparin Anti-Xa Level ABG pH 7.465 H POC ABG pCO2 POC ABG pO2 ABG pO2 203.4 H ABG HCO3 41.2 H ABG O2 Saturation 99.3 H ABG Base Excess 15.1 H ABG Hemoglobin 11.5 L ABG Oxyhemoglobin ABG Sodium ABG Potassium ABG Chloride ABG Glucose Oxyhemoglobin Carboxyhemoglobin Sodium Potassium Chloride Carbon Dioxide BUN Creatinine Glucose POC Glucose 197 H 184 H Lactic Acid Calcium Magnesium Ferritin Total Bilirubin Direct Bilirubin AST ALT Alkaline Phosphatase Lactate Dehydrogenase C-Reactive Protein Total Protein Albumin Triglycerides Lipase Arterial Blood Glucose Arterial Blood Ionized Calcium Urine WBC (Auto) Coronavirus (PCR) SARS-CoV-2 IgG Ab Crossmatch 06/02/20 06/02/20 06/02/20 11:49 18:06 23:00 WBC RBC Hgb Hct MCV MCH MCHC RDW Lymph % (Auto) Lymph # (Auto) [place] # (Auto) Baso # (Auto) Seg Neutrophils % Seg Neuts % (Manual) Lymphocytes % (Manual) Nucleated RBC % Seg Neutrophils # Seg Neutrophils # Man Lymphocytes # (Manual) Monocytes # (Manual) Eosinophils # (Manual) PT INR APTT D-Dimer Heparin Anti-Xa Level ABG pH POC ABG pCO2 POC ABG pO2 ABG pO2 ABG HCO3 ABG O2 Saturation ABG Base Excess ABG Hemoglobin ABG Oxyhemoglobin ABG Sodium ABG Potassium ABG Chloride ABG Glucose Oxyhemoglobin Carboxyhemoglobin Sodium Potassium Chloride Carbon Dioxide BUN Creatinine Glucose POC Glucose 195 H 177 H 228 H Lactic Acid Calcium Magnesium Ferritin Total Bilirubin Direct Bilirubin AST ALT Alkaline Phosphatase Lactate Dehydrogenase C-Reactive Protein Total Protein Albumin Triglycerides Lipase Arterial Blood Glucose Arterial Blood Ionized Calcium Urine WBC (Auto) Coronavirus (PCR) SARS-CoV-2 IgG Ab Crossmatch 06/03/20 06/03/20 06/03/20 03:58 05:19 12:21 WBC RBC Hgb Hct MCV MCH MCHC RDW Lymph % (Auto) Lymph # (Auto) [place] # (Auto) Baso # (Auto) Seg Neutrophils % Seg Neuts % (Manual) Lymphocytes % (Manual) Nucleated RBC % Seg Neutrophils # Seg Neutrophils # Man Lymphocytes # (Manual) Monocytes # (Manual) Eosinophils # (Manual) PT INR APTT D-Dimer Heparin Anti-Xa Level ABG pH POC ABG pCO2 POC ABG pO2 ABG pO2 171.0 H ABG HCO3 42.8 H ABG O2 Saturation ABG Base Excess 15.6 H ABG Hemoglobin 12.3 L ABG Oxyhemoglobin ABG Sodium ABG Potassium ABG Chloride ABG Glucose Oxyhemoglobin Carboxyhemoglobin Sodium Potassium Chloride Carbon Dioxide BUN Creatinine Glucose POC Glucose 122 H 207 H Lactic Acid Calcium Magnesium Ferritin Total Bilirubin Direct Bilirubin AST ALT Alkaline Phosphatase Lactate Dehydrogenase C-Reactive Protein Total Protein Albumin Triglycerides Lipase Arterial Blood Glucose Arterial Blood Ionized Calcium Urine WBC (Auto) Coronavirus (PCR) SARS-CoV-2 IgG Ab Crossmatch 06/03/20 06/03/20 06/04/20 17:27 23:50 03:55 WBC RBC Hgb Hct MCV MCH MCHC RDW Lymph % (Auto) Lymph # (Auto) [place] # (Auto) Baso # (Auto) Seg Neutrophils % Seg Neuts % (Manual) Lymphocytes % (Manual) Nucleated RBC % Seg Neutrophils # Seg Neutrophils # Man Lymphocytes # (Manual) Monocytes # (Manual) Eosinophils # (Manual) PT INR APTT D-Dimer Heparin Anti-Xa Level ABG pH POC ABG pCO2 POC ABG pO2 ABG pO2 117.2 H ABG HCO3 42.4 H ABG O2 Saturation ABG Base Excess 15.3 H ABG Hemoglobin 10.5 L ABG Oxyhemoglobin ABG Sodium ABG Potassium ABG Chloride ABG Glucose Oxyhemoglobin Carboxyhemoglobin Sodium Potassium Chloride Carbon Dioxide BUN Creatinine Glucose POC Glucose 157 H 214 H Lactic Acid Calcium Magnesium Ferritin Total Bilirubin Direct Bilirubin AST ALT Alkaline Phosphatase Lactate Dehydrogenase C-Reactive Protein Total Protein Albumin Triglycerides Lipase Arterial Blood Glucose Arterial Blood Ionized Calcium Urine WBC (Auto) Coronavirus (PCR) SARS-CoV-2 IgG Ab Crossmatch 06/04/20 06/04/20 06/04/20 05:49 11:41 17:30 WBC RBC Hgb Hct MCV MCH MCHC RDW Lymph % (Auto) Lymph # (Auto) [place] # (Auto) Baso # (Auto) Seg Neutrophils % Seg Neuts % (Manual) Lymphocytes % (Manual) Nucleated RBC % Seg Neutrophils # Seg Neutrophils # Man Lymphocytes # (Manual) Monocytes # (Manual) Eosinophils # (Manual) PT INR APTT D-Dimer Heparin Anti-Xa Level ABG pH POC ABG pCO2 POC ABG pO2 ABG pO2 ABG HCO3 ABG O2 Saturation ABG Base Excess ABG Hemoglobin ABG Oxyhemoglobin ABG Sodium ABG Potassium ABG Chloride ABG Glucose Oxyhemoglobin Carboxyhemoglobin Sodium Potassium Chloride Carbon Dioxide BUN Creatinine Glucose POC Glucose 149 H 233 H 156 H Lactic Acid Calcium Magnesium Ferritin Total Bilirubin Direct Bilirubin AST ALT Alkaline Phosphatase Lactate Dehydrogenase C-Reactive Protein Total Protein Albumin Triglycerides Lipase Arterial Blood Glucose Arterial Blood Ionized Calcium Urine WBC (Auto) Coronavirus (PCR) SARS-CoV-2 IgG Ab Crossmatch 06/04/20 06/04/20 06/04/20 19:01 20:53 23:41 WBC RBC 3.18 L Hgb 10.8 L Hct 31.8 L MCV 100 H MCH 34 H MCHC RDW Lymph % (Auto) Lymph # (Auto) [place] # (Auto) Baso # (Auto) Seg Neutrophils % Seg Neuts % (Manual) 86.0 H Lymphocytes % (Manual) 10.0 L Nucleated RBC % 1.0 H Seg Neutrophils # Seg Neutrophils # Man 8.5 H Lymphocytes # (Manual) 1.0 L Monocytes # (Manual) Eosinophils # (Manual) PT INR APTT D-Dimer Heparin Anti-Xa Level ABG pH POC ABG pCO2 POC ABG pO2 ABG pO2 ABG HCO3 ABG O2 Saturation ABG Base Excess ABG Hemoglobin ABG Oxyhemoglobin ABG Sodium ABG Potassium ABG Chloride ABG Glucose Oxyhemoglobin Carboxyhemoglobin Sodium Potassium 3.4 L D Chloride 96.5 L Carbon Dioxide 41 H* BUN 27 H Creatinine 0.5 L Glucose 173 H POC Glucose 217 H Lactic Acid Calcium Magnesium Ferritin Total Bilirubin Direct Bilirubin AST ALT Alkaline Phosphatase Lactate Dehydrogenase C-Reactive Protein Total Protein Albumin Triglycerides Lipase Arterial Blood Glucose Arterial Blood Ionized Calcium Urine WBC (Auto) Coronavirus (PCR) SARS-CoV-2 IgG Ab Crossmatch 06/05/20 06/05/20 06/05/20 06:05 11:54 12:35 WBC RBC Hgb Hct MCV MCH MCHC RDW Lymph % (Auto) Lymph # (Auto) [place] # (Auto) Baso # (Auto) Seg Neutrophils % Seg Neuts % (Manual) Lymphocytes % (Manual) Nucleated RBC % Seg Neutrophils # Seg Neutrophils # Man Lymphocytes # (Manual) Monocytes # (Manual) Eosinophils # (Manual) PT INR APTT D-Dimer Heparin Anti-Xa Level ABG pH POC ABG pCO2 POC ABG pO2 ABG pO2 127.9 H ABG HCO3 41.1 H ABG O2 Saturation ABG Base Excess 13.0 H ABG Hemoglobin 13.4 L ABG Oxyhemoglobin ABG Sodium ABG Potassium ABG Chloride ABG Glucose Oxyhemoglobin Carboxyhemoglobin Sodium Potassium Chloride Carbon Dioxide BUN Creatinine Glucose POC Glucose 137 H 211 H Lactic Acid Calcium Magnesium Ferritin Total Bilirubin Direct Bilirubin AST ALT Alkaline Phosphatase Lactate Dehydrogenase C-Reactive Protein Total Protein Albumin Triglycerides Lipase Arterial Blood Glucose Arterial Blood Ionized Calcium Urine WBC (Auto) Coronavirus (PCR) SARS-CoV-2 IgG Ab Crossmatch 06/05/20 06/05/20 06/06/20 17:03 23:49 04:42 WBC RBC Hgb Hct MCV MCH MCHC RDW Lymph % (Auto) Lymph # (Auto) [place] # (Auto) Baso # (Auto) Seg Neutrophils % Seg Neuts % (Manual) Lymphocytes % (Manual) Nucleated RBC % Seg Neutrophils # Seg Neutrophils # Man Lymphocytes # (Manual) Monocytes # (Manual) Eosinophils # (Manual) PT INR APTT D-Dimer Heparin Anti-Xa Level ABG pH POC ABG pCO2 56.1 H POC ABG pO2 52.5 L ABG pO2 ABG HCO3 ABG O2 Saturation ABG Base Excess ABG Hemoglobin 11.7 L ABG Oxyhemoglobin ABG Sodium ABG Potassium 3.3 L ABG Chloride 95.0 L ABG Glucose 156 H Oxyhemoglobin Carboxyhemoglobin Sodium Potassium Chloride Carbon Dioxide BUN Creatinine Glucose POC Glucose 159 H 194 H Lactic Acid Calcium Magnesium Ferritin Total Bilirubin Direct Bilirubin AST ALT Alkaline Phosphatase Lactate Dehydrogenase C-Reactive Protein Total Protein Albumin Triglycerides Lipase Arterial Blood Glucose 156 H Arterial Blood Ionized Calcium Urine WBC (Auto) Coronavirus (PCR) SARS-CoV-2 IgG Ab Crossmatch 06/06/20 06/06/20 06/06/20 05:57 12:06 17:38 WBC RBC Hgb Hct MCV MCH MCHC RDW Lymph % (Auto) Lymph # (Auto) [place] # (Auto) Baso # (Auto) Seg Neutrophils % Seg Neuts % (Manual) Lymphocytes % (Manual) Nucleated RBC % Seg Neutrophils # Seg Neutrophils # Man Lymphocytes # (Manual) Monocytes # (Manual) Eosinophils # (Manual) PT INR APTT D-Dimer Heparin Anti-Xa Level ABG pH POC ABG pCO2 POC ABG pO2 ABG pO2 ABG HCO3 ABG O2 Saturation ABG Base Excess ABG Hemoglobin ABG Oxyhemoglobin ABG Sodium ABG Potassium ABG Chloride ABG Glucose Oxyhemoglobin Carboxyhemoglobin Sodium Potassium Chloride Carbon Dioxide BUN Creatinine Glucose POC Glucose 144 H 230 H 162 H Lactic Acid Calcium Magnesium Ferritin Total Bilirubin Direct Bilirubin AST ALT Alkaline Phosphatase Lactate Dehydrogenase C-Reactive Protein Total Protein Albumin Triglycerides Lipase Arterial Blood Glucose Arterial Blood Ionized Calcium Urine WBC (Auto) Coronavirus (PCR) SARS-CoV-2 IgG Ab Crossmatch 06/06/20 06/07/20 06/07/20 23:50 04:34 06:03 WBC RBC Hgb Hct MCV MCH MCHC RDW Lymph % (Auto) Lymph # (Auto) [place] # (Auto) Baso # (Auto) Seg Neutrophils % Seg Neuts % (Manual) Lymphocytes % (Manual) Nucleated RBC % Seg Neutrophils # Seg Neutrophils # Man Lymphocytes # (Manual) Monocytes # (Manual) Eosinophils # (Manual) PT INR APTT D-Dimer Heparin Anti-Xa Level ABG pH 7.511 H POC ABG pCO2 53.5 H POC ABG pO2 114.5 H ABG pO2 ABG HCO3 ABG O2 Saturation ABG Base Excess ABG Hemoglobin 9.4 L ABG Oxyhemoglobin ABG Sodium 134.5 L ABG Potassium ABG Chloride 94.0 L ABG Glucose 186 H Oxyhemoglobin Carboxyhemoglobin Sodium Potassium Chloride Carbon Dioxide BUN Creatinine Glucose POC Glucose 181 H 155 H Lactic Acid Calcium Magnesium Ferritin Total Bilirubin Direct Bilirubin AST ALT Alkaline Phosphatase Lactate Dehydrogenase C-Reactive Protein Total Protein Albumin Triglycerides Lipase Arterial Blood Glucose 186 H Arterial Blood Ionized Calcium 4.5 L Urine WBC (Auto) Coronavirus (PCR) SARS-CoV-2 IgG Ab Crossmatch 06/07/20 06/07/20 06/07/20 13:41 14:58 14:58 WBC RBC 2.72 L Hgb 9.3 L Hct 27.2 L MCV 100 H MCH 34 H MCHC RDW Lymph % (Auto) Lymph # (Auto) [place] # (Auto) Baso # (Auto) Seg Neutrophils % Seg Neuts % (Manual) Lymphocytes % (Manual) Nucleated RBC % Seg Neutrophils # Seg Neutrophils # Man Lymphocytes # (Manual) Monocytes # (Manual) Eosinophils # (Manual) PT INR APTT D-Dimer Heparin Anti-Xa Level ABG pH POC ABG pCO2 POC ABG pO2 ABG pO2 ABG HCO3 ABG O2 Saturation ABG Base Excess ABG Hemoglobin ABG Oxyhemoglobin ABG Sodium ABG Potassium ABG Chloride ABG Glucose Oxyhemoglobin Carboxyhemoglobin Sodium Potassium Chloride 93.5 L Carbon Dioxide 39 H BUN 22 H Creatinine 0.4 L Glucose 188 H POC Glucose 201 H Lactic Acid Calcium Magnesium Ferritin Total Bilirubin Direct Bilirubin AST 61 H ALT 273 H Alkaline Phosphatase Lactate Dehydrogenase C-Reactive Protein Total Protein 5.9 L Albumin 2.7 L Triglycerides Lipase Arterial Blood Glucose Arterial Blood Ionized Calcium Urine WBC (Auto) Coronavirus (PCR) SARS-CoV-2 IgG Ab Crossmatch 06/07/20 06/08/20 06/08/20 23:18 05:31 12:07 WBC RBC Hgb Hct MCV MCH MCHC RDW Lymph % (Auto) Lymph # (Auto) [place] # (Auto) Baso # (Auto) Seg Neutrophils % Seg Neuts % (Manual) Lymphocytes % (Manual) Nucleated RBC % Seg Neutrophils # Seg Neutrophils # Man Lymphocytes # (Manual) Monocytes # (Manual) Eosinophils # (Manual) PT INR APTT D-Dimer Heparin Anti-Xa Level ABG pH POC ABG pCO2 POC ABG pO2 ABG pO2 ABG HCO3 ABG O2 Saturation ABG Base Excess ABG Hemoglobin ABG Oxyhemoglobin ABG Sodium ABG Potassium ABG Chloride ABG Glucose Oxyhemoglobin Carboxyhemoglobin Sodium Potassium Chloride Carbon Dioxide BUN Creatinine Glucose POC Glucose 214 H 129 H 179 H Lactic Acid Calcium Magnesium Ferritin Total Bilirubin Direct Bilirubin AST ALT Alkaline Phosphatase Lactate Dehydrogenase C-Reactive Protein Total Protein Albumin Triglycerides Lipase Arterial Blood Glucose Arterial Blood Ionized Calcium Urine WBC (Auto) Coronavirus (PCR) SARS-CoV-2 IgG Ab Crossmatch 06/08/20 06/08/20 06/09/20 18:18 23:35 05:42 WBC RBC Hgb Hct MCV MCH MCHC RDW Lymph % (Auto) Lymph # (Auto) [place] # (Auto) Baso # (Auto) Seg Neutrophils % Seg Neuts % (Manual) Lymphocytes % (Manual) Nucleated RBC % Seg Neutrophils # Seg Neutrophils # Man Lymphocytes # (Manual) Monocytes # (Manual) Eosinophils # (Manual) PT INR APTT D-Dimer Heparin Anti-Xa Level ABG pH POC ABG pCO2 POC ABG pO2 ABG pO2 ABG HCO3 ABG O2 Saturation ABG Base Excess ABG Hemoglobin ABG Oxyhemoglobin ABG Sodium ABG Potassium ABG Chloride ABG Glucose Oxyhemoglobin Carboxyhemoglobin Sodium Potassium Chloride Carbon Dioxide BUN Creatinine Glucose POC Glucose 172 H 177 H 137 H Lactic Acid Calcium Magnesium Ferritin Total Bilirubin Direct Bilirubin AST ALT Alkaline Phosphatase Lactate Dehydrogenase C-Reactive Protein Total Protein Albumin Triglycerides Lipase Arterial Blood Glucose Arterial Blood Ionized Calcium Urine WBC (Auto) Coronavirus (PCR) SARS-CoV-2 IgG Ab Crossmatch 06/09/20 06/09/20 06/09/20 06:20 07:55 07:55 WBC 12.4 H RBC 3.26 L Hgb 11.1 L Hct 33.4 L D MCV 102 H MCH 34 H MCHC RDW Lymph % (Auto) Lymph # (Auto) [place] # (Auto) Baso # (Auto) Seg Neutrophils % Seg Neuts % (Manual) Lymphocytes % (Manual) Nucleated RBC % Seg Neutrophils # Seg Neutrophils # Man Lymphocytes # (Manual) Monocytes # (Manual) Eosinophils # (Manual) PT INR APTT D-Dimer Heparin Anti-Xa Level ABG pH 7.466 H POC ABG pCO2 50.7 H POC ABG pO2 53.0 L ABG pO2 ABG HCO3 ABG O2 Saturation ABG Base Excess ABG Hemoglobin ABG Oxyhemoglobin ABG Sodium ABG Potassium 2.9 L ABG Chloride 93.0 L ABG Glucose 138 H Oxyhemoglobin Carboxyhemoglobin Sodium Potassium 3.0 L Chloride 92.3 L Carbon Dioxide 37 H BUN 21 H Creatinine 0.6 L Glucose 120 H POC Glucose Lactic Acid Calcium Magnesium Ferritin Total Bilirubin Direct Bilirubin AST ALT Alkaline Phosphatase Lactate Dehydrogenase C-Reactive Protein Total Protein Albumin Triglycerides Lipase Arterial Blood Glucose 138 H Arterial Blood Ionized Calcium 4.5 L Urine WBC (Auto) Coronavirus (PCR) SARS-CoV-2 IgG Ab Crossmatch 06/09/20 06/09/20 06/10/20 11:22 18:32 04:46 WBC RBC Hgb Hct MCV MCH MCHC RDW Lymph % (Auto) Lymph # (Auto) [place] # (Auto) Baso # (Auto) Seg Neutrophils % Seg Neuts % (Manual) Lymphocytes % (Manual) Nucleated RBC % Seg Neutrophils # Seg Neutrophils # Man Lymphocytes # (Manual) Monocytes # (Manual) Eosinophils # (Manual) PT INR APTT D-Dimer Heparin Anti-Xa Level ABG pH 7.501 H POC ABG pCO2 POC ABG pO2 126.5 H ABG pO2 ABG HCO3 ABG O2 Saturation ABG Base Excess ABG Hemoglobin 10.3 L ABG Oxyhemoglobin ABG Sodium ABG Potassium ABG Chloride ABG Glucose 220 H Oxyhemoglobin Carboxyhemoglobin Sodium Potassium Chloride Carbon Dioxide BUN Creatinine Glucose POC Glucose 117 H 121 H Lactic Acid Calcium Magnesium Ferritin Total Bilirubin Direct Bilirubin AST ALT Alkaline Phosphatase Lactate Dehydrogenase C-Reactive Protein Total Protein Albumin Triglycerides Lipase Arterial Blood Glucose 220 H Arterial Blood Ionized Calcium Urine WBC (Auto) Coronavirus (PCR) SARS-CoV-2 IgG Ab Crossmatch 06/10/20 06/10/20 06/10/20 05:30 09:38 12:03 WBC RBC Hgb Hct MCV MCH MCHC RDW Lymph % (Auto) Lymph # (Auto) [place] # (Auto) Baso # (Auto) Seg Neutrophils % Seg Neuts % (Manual) Lymphocytes % (Manual) Nucleated RBC % Seg Neutrophils # Seg Neutrophils # Man Lymphocytes # (Manual) Monocytes # (Manual) Eosinophils # (Manual) PT INR APTT D-Dimer Heparin Anti-Xa Level ABG pH POC ABG pCO2 POC ABG pO2 ABG pO2 ABG HCO3 ABG O2 Saturation ABG Base Excess ABG Hemoglobin ABG Oxyhemoglobin ABG Sodium ABG Potassium ABG Chloride ABG Glucose Oxyhemoglobin Carboxyhemoglobin Sodium Potassium Chloride Carbon Dioxide BUN Creatinine Glucose POC Glucose 181 H 204 H Lactic Acid Calcium Magnesium Ferritin Total Bilirubin Direct Bilirubin AST ALT Alkaline Phosphatase Lactate Dehydrogenase C-Reactive Protein Total Protein Albumin Triglycerides 738 H Lipase Arterial Blood Glucose Arterial Blood Ionized Calcium Urine WBC (Auto) Coronavirus (PCR) SARS-CoV-2 IgG Ab Crossmatch 06/10/20 06/11/20 06/11/20 17:17 00:04 04:38 WBC RBC Hgb Hct MCV MCH MCHC RDW Lymph % (Auto) Lymph # (Auto) [place] # (Auto) Baso # (Auto) Seg Neutrophils % Seg Neuts % (Manual) Lymphocytes % (Manual) Nucleated RBC % Seg Neutrophils # Seg Neutrophils # Man Lymphocytes # (Manual) Monocytes # (Manual) Eosinophils # (Manual) PT INR APTT D-Dimer Heparin Anti-Xa Level ABG pH 7.479 H POC ABG pCO2 POC ABG pO2 76.7 L ABG pO2 ABG HCO3 ABG O2 Saturation ABG Base Excess ABG Hemoglobin 9.8 L ABG Oxyhemoglobin ABG Sodium 135.8 L ABG Potassium ABG Chloride ABG Glucose 238 H Oxyhemoglobin Carboxyhemoglobin Sodium Potassium Chloride Carbon Dioxide BUN Creatinine Glucose POC Glucose 156 H 178 H Lactic Acid Calcium Magnesium Ferritin Total Bilirubin Direct Bilirubin AST ALT Alkaline Phosphatase Lactate Dehydrogenase C-Reactive Protein Total Protein Albumin Triglycerides Lipase Arterial Blood Glucose 238 H Arterial Blood Ionized Calcium Urine WBC (Auto) Coronavirus (PCR) SARS-CoV-2 IgG Ab Crossmatch 06/11/20 06/11/20 06/11/20 05:21 06:52 11:50 WBC RBC Hgb Hct MCV MCH MCHC RDW Lymph % (Auto) Lymph # (Auto) [place] # (Auto) Baso # (Auto) Seg Neutrophils % Seg Neuts % (Manual) Lymphocytes % (Manual) Nucleated RBC % Seg Neutrophils # Seg Neutrophils # Man Lymphocytes # (Manual) Monocytes # (Manual) Eosinophils # (Manual) PT INR APTT D-Dimer Heparin Anti-Xa Level ABG pH POC ABG pCO2 POC ABG pO2 ABG pO2 ABG HCO3 ABG O2 Saturation ABG Base Excess ABG Hemoglobin ABG Oxyhemoglobin ABG Sodium ABG Potassium ABG Chloride ABG Glucose Oxyhemoglobin Carboxyhemoglobin Sodium Potassium Chloride Carbon Dioxide BUN Creatinine Glucose POC Glucose 215 H 187 H Lactic Acid Calcium Magnesium Ferritin Total Bilirubin Direct Bilirubin AST ALT Alkaline Phosphatase Lactate Dehydrogenase C-Reactive Protein Total Protein Albumin Triglycerides 331 H Lipase Arterial Blood Glucose Arterial Blood Ionized Calcium Urine WBC (Auto) Coronavirus (PCR) SARS-CoV-2 IgG Ab Crossmatch 06/11/20 06/11/20 06/12/20 17:49 23:35 04:52 WBC RBC Hgb Hct MCV MCH MCHC RDW Lymph % (Auto) Lymph # (Auto) [place] # (Auto) Baso # (Auto) Seg Neutrophils % Seg Neuts % (Manual) Lymphocytes % (Manual) Nucleated RBC % Seg Neutrophils # Seg Neutrophils # Man Lymphocytes # (Manual) Monocytes # (Manual) Eosinophils # (Manual) PT INR APTT D-Dimer Heparin Anti-Xa Level ABG pH 7.486 H POC ABG pCO2 POC ABG pO2 ABG pO2 ABG HCO3 ABG O2 Saturation ABG Base Excess ABG Hemoglobin 9.4 L ABG Oxyhemoglobin ABG Sodium ABG Potassium 3.2 L ABG Chloride ABG Glucose 209 H Oxyhemoglobin Carboxyhemoglobin Sodium Potassium Chloride Carbon Dioxide BUN Creatinine Glucose POC Glucose 211 H 200 H Lactic Acid Calcium Magnesium Ferritin Total Bilirubin Direct Bilirubin AST ALT Alkaline Phosphatase Lactate Dehydrogenase C-Reactive Protein Total Protein Albumin Triglycerides Lipase Arterial Blood Glucose 209 H Arterial Blood Ionized Calcium Urine WBC (Auto) Coronavirus (PCR) SARS-CoV-2 IgG Ab Crossmatch 06/12/20 06/12/20 06/12/20 05:13 11:47 18:33 WBC RBC Hgb Hct MCV MCH MCHC RDW Lymph % (Auto) Lymph # (Auto) [place] # (Auto) Baso # (Auto) Seg Neutrophils % Seg Neuts % (Manual) Lymphocytes % (Manual) Nucleated RBC % Seg Neutrophils # Seg Neutrophils # Man Lymphocytes # (Manual) Monocytes # (Manual) Eosinophils # (Manual) PT INR APTT D-Dimer Heparin Anti-Xa Level ABG pH POC ABG pCO2 POC ABG pO2 ABG pO2 ABG HCO3 ABG O2 Saturation ABG Base Excess ABG Hemoglobin ABG Oxyhemoglobin ABG Sodium ABG Potassium ABG Chloride ABG Glucose Oxyhemoglobin Carboxyhemoglobin Sodium Potassium Chloride Carbon Dioxide BUN Creatinine Glucose POC Glucose 174 H 214 H 194 H Lactic Acid Calcium Magnesium Ferritin Total Bilirubin Direct Bilirubin AST ALT Alkaline Phosphatase Lactate Dehydrogenase C-Reactive Protein Total Protein Albumin Triglycerides Lipase Arterial Blood Glucose Arterial Blood Ionized Calcium Urine WBC (Auto) Coronavirus (PCR) SARS-CoV-2 IgG Ab Crossmatch 06/12/20 06/13/20 06/13/20 23:49 05:41 12:30 WBC RBC Hgb Hct MCV MCH MCHC RDW Lymph % (Auto) Lymph # (Auto) [place] # (Auto) Baso # (Auto) Seg Neutrophils % Seg Neuts % (Manual) Lymphocytes % (Manual) Nucleated RBC % Seg Neutrophils # Seg Neutrophils # Man Lymphocytes # (Manual) Monocytes # (Manual) Eosinophils # (Manual) PT INR APTT D-Dimer Heparin Anti-Xa Level ABG pH POC ABG pCO2 POC ABG pO2 ABG pO2 ABG HCO3 ABG O2 Saturation ABG Base Excess ABG Hemoglobin ABG Oxyhemoglobin ABG Sodium ABG Potassium ABG Chloride ABG Glucose Oxyhemoglobin Carboxyhemoglobin Sodium Potassium Chloride Carbon Dioxide BUN Creatinine Glucose POC Glucose 160 H 150 H 181 H Lactic Acid Calcium Magnesium Ferritin Total Bilirubin Direct Bilirubin AST ALT Alkaline Phosphatase Lactate Dehydrogenase C-Reactive Protein Total Protein Albumin Triglycerides Lipase Arterial Blood Glucose Arterial Blood Ionized Calcium Urine WBC (Auto) Coronavirus (PCR) SARS-CoV-2 IgG Ab Crossmatch 06/13/20 06/13/20 06/13/20 14:14 17:48 23:27 WBC 12.8 H RBC 2.33 L Hgb 8.0 L Hct 23.3 L MCV 100 H MCH 34 H MCHC RDW 15.7 H Lymph % (Auto) Lymph # (Auto) [place] # (Auto) Baso # (Auto) Seg Neutrophils % Seg Neuts % (Manual) 85.0 H Lymphocytes % (Manual) 10.0 L Nucleated RBC % Seg Neutrophils # Seg Neutrophils # Man 10.9 H Lymphocytes # (Manual) Monocytes # (Manual) Eosinophils # (Manual) PT INR APTT D-Dimer Heparin Anti-Xa Level ABG pH POC ABG pCO2 POC ABG pO2 ABG pO2 ABG HCO3 ABG O2 Saturation ABG Base Excess ABG Hemoglobin ABG Oxyhemoglobin ABG Sodium ABG Potassium ABG Chloride ABG Glucose Oxyhemoglobin Carboxyhemoglobin Sodium Potassium Chloride Carbon Dioxide BUN Creatinine Glucose POC Glucose 173 H 154 H Lactic Acid Calcium Magnesium Ferritin Total Bilirubin Direct Bilirubin AST ALT Alkaline Phosphatase Lactate Dehydrogenase C-Reactive Protein Total Protein Albumin Triglycerides Lipase Arterial Blood Glucose Arterial Blood Ionized Calcium Urine WBC (Auto) Coronavirus (PCR) SARS-CoV-2 IgG Ab Crossmatch 06/14/20 06/14/20 06/14/20 03:58 05:21 07:15 WBC 26.2 H RBC 2.97 L Hgb 9.7 L Hct 29.9 L D MCV 101 H MCH 33 H MCHC RDW 15.3 H Lymph % (Auto) Lymph # (Auto) [place] # (Auto) Baso # (Auto) Seg Neutrophils % Seg Neuts % (Manual) 79.0 H Lymphocytes % (Manual) 5.0 L Nucleated RBC % 3.0 H Seg Neutrophils # Seg Neutrophils # Man 20.7 H Lymphocytes # (Manual) Monocytes # (Manual) 1.3 H Eosinophils # (Manual) PT INR APTT D-Dimer Heparin Anti-Xa Level ABG pH POC ABG pCO2 51.5 H POC ABG pO2 70.0 L ABG pO2 ABG HCO3 ABG O2 Saturation ABG Base Excess ABG Hemoglobin 10.1 L ABG Oxyhemoglobin ABG Sodium 131.5 L ABG Potassium 3.1 L ABG Chloride 93.0 L ABG Glucose 188 H Oxyhemoglobin Carboxyhemoglobin Sodium Potassium Chloride Carbon Dioxide BUN Creatinine Glucose POC Glucose 147 H Lactic Acid Calcium Magnesium Ferritin Total Bilirubin Direct Bilirubin AST ALT Alkaline Phosphatase Lactate Dehydrogenase C-Reactive Protein Total Protein Albumin Triglycerides Lipase Arterial Blood Glucose 188 H Arterial Blood Ionized Calcium Urine WBC (Auto) Coronavirus (PCR) SARS-CoV-2 IgG Ab Crossmatch 06/14/20 06/14/20 06/14/20 07:15 11:30 11:50 WBC RBC Hgb Hct MCV MCH MCHC RDW Lymph % (Auto) Lymph # (Auto) [place] # (Auto) Baso # (Auto) Seg Neutrophils % Seg Neuts % (Manual) Lymphocytes % (Manual) Nucleated RBC % Seg Neutrophils # Seg Neutrophils # Man Lymphocytes # (Manual) Monocytes # (Manual) Eosinophils # (Manual) PT INR APTT D-Dimer Heparin Anti-Xa Level ABG pH POC ABG pCO2 POC ABG pO2 ABG pO2 ABG HCO3 ABG O2 Saturation ABG Base Excess ABG Hemoglobin ABG Oxyhemoglobin ABG Sodium ABG Potassium ABG Chloride ABG Glucose Oxyhemoglobin Carboxyhemoglobin Sodium 135 L Potassium 3.5 L Chloride 90.4 L Carbon Dioxide 38 H BUN Creatinine 0.5 L Glucose 190 H POC Glucose 176 H Lactic Acid Calcium Magnesium Ferritin 1496.0 H Total Bilirubin Direct Bilirubin AST ALT 81 H Alkaline Phosphatase Lactate Dehydrogenase C-Reactive Protein Total Protein Albumin 2.9 L Triglycerides Lipase Arterial Blood Glucose Arterial Blood Ionized Calcium Urine WBC (Auto) Coronavirus (PCR) SARS-CoV-2 IgG Ab Crossmatch 06/14/20 06/15/20 06/15/20 23:31 04:00 05:00 WBC RBC Hgb Hct MCV MCH MCHC RDW Lymph % (Auto) Lymph # (Auto) [place] # (Auto) Baso # (Auto) Seg Neutrophils % Seg Neuts % (Manual) Lymphocytes % (Manual) Nucleated RBC % Seg Neutrophils # Seg Neutrophils # Man Lymphocytes # (Manual) Monocytes # (Manual) Eosinophils # (Manual) PT INR APTT D-Dimer Heparin Anti-Xa Level ABG pH POC ABG pCO2 POC ABG pO2 ABG pO2 ABG HCO3 ABG O2 Saturation ABG Base Excess ABG Hemoglobin ABG Oxyhemoglobin ABG Sodium ABG Potassium ABG Chloride ABG Glucose Oxyhemoglobin Carboxyhemoglobin Sodium 133 L Potassium Chloride 91.1 L Carbon Dioxide 34 H BUN Creatinine 0.4 L Glucose 159 H POC Glucose 200 H Lactic Acid Calcium Magnesium Ferritin Total Bilirubin 2.00 H Direct Bilirubin AST 47 H ALT 77 H Alkaline Phosphatase Lactate Dehydrogenase C-Reactive Protein Total Protein Albumin 2.6 L Triglycerides 152 H Lipase Arterial Blood Glucose Arterial Blood Ionized Calcium Urine WBC (Auto) Coronavirus (PCR) SARS-CoV-2 IgG Ab Crossmatch 06/15/20 06/15/20 06/15/20 05:35 06:27 11:38 WBC RBC Hgb Hct MCV MCH MCHC RDW Lymph % (Auto) Lymph # (Auto) [place] # (Auto) Baso # (Auto) Seg Neutrophils % Seg Neuts % (Manual) Lymphocytes % (Manual) Nucleated RBC % Seg Neutrophils # Seg Neutrophils # Man Lymphocytes # (Manual) Monocytes # (Manual) Eosinophils # (Manual) PT INR APTT D-Dimer Heparin Anti-Xa Level ABG pH POC ABG pCO2 61.0 H POC ABG pO2 67.9 L ABG pO2 ABG HCO3 ABG O2 Saturation ABG Base Excess ABG Hemoglobin 10.4 L ABG Oxyhemoglobin ABG Sodium 132.7 L ABG Potassium 3.3 L ABG Chloride 92.0 L ABG Glucose 158 H Oxyhemoglobin Carboxyhemoglobin Sodium Potassium Chloride Carbon Dioxide BUN Creatinine Glucose POC Glucose 148 H 197 H Lactic Acid Calcium Magnesium Ferritin Total Bilirubin Direct Bilirubin AST ALT Alkaline Phosphatase Lactate Dehydrogenase C-Reactive Protein Total Protein Albumin Triglycerides Lipase Arterial Blood Glucose 158 H Arterial Blood Ionized Calcium Urine WBC (Auto) Coronavirus (PCR) SARS-CoV-2 IgG Ab Crossmatch 06/15/20 06/15/20 06/16/20 17:29 Unknown 00:01 WBC 20.7 H RBC 2.57 L Hgb 8.9 L Hct 25.8 L MCV 101 H MCH 35 H MCHC 35 H RDW 16.0 H Lymph % (Auto) Lymph # (Auto) [place] # (Auto) Baso # (Auto) Seg Neutrophils % Seg Neuts % (Manual) 83.0 H Lymphocytes % (Manual) 8.0 L Nucleated RBC % Seg Neutrophils # Seg Neutrophils # Man 17.2 H Lymphocytes # (Manual) Monocytes # (Manual) 1.2 H Eosinophils # (Manual) PT INR APTT D-Dimer Heparin Anti-Xa Level ABG pH POC ABG pCO2 POC ABG pO2 ABG pO2 ABG HCO3 ABG O2 Saturation ABG Base Excess ABG Hemoglobin ABG Oxyhemoglobin ABG Sodium ABG Potassium ABG Chloride ABG Glucose Oxyhemoglobin Carboxyhemoglobin Sodium Potassium Chloride Carbon Dioxide BUN Creatinine Glucose POC Glucose 231 H 257 H Lactic Acid Calcium Magnesium Ferritin Total Bilirubin Direct Bilirubin AST ALT Alkaline Phosphatase Lactate Dehydrogenase C-Reactive Protein Total Protein Albumin Triglycerides Lipase Arterial Blood Glucose Arterial Blood Ionized Calcium Urine WBC (Auto) Coronavirus (PCR) SARS-CoV-2 IgG Ab Crossmatch 06/16/20 06/16/20 06/16/20 04:00 04:00 05:22 WBC 13.8 H RBC 2.03 L Hgb 7.6 L Hct 20.7 L MCV 102 H MCH 37 H MCHC 37 H RDW 16.2 H Lymph % (Auto) 4.4 L Lymph # (Auto) 0.6 L [place] # (Auto) Baso # (Auto) Seg Neutrophils % Seg Neuts % (Manual) Lymphocytes % (Manual) Nucleated RBC % Seg Neutrophils # 12.7 H Seg Neutrophils # Man Lymphocytes # (Manual) Monocytes # (Manual) Eosinophils # (Manual) PT INR APTT D-Dimer Heparin Anti-Xa Level ABG pH POC ABG pCO2 POC ABG pO2 ABG pO2 ABG HCO3 ABG O2 Saturation ABG Base Excess ABG Hemoglobin ABG Oxyhemoglobin ABG Sodium ABG Potassium ABG Chloride ABG Glucose Oxyhemoglobin Carboxyhemoglobin Sodium 130 L Potassium Chloride 88.9 L Carbon Dioxide 36 H BUN Creatinine 0.3 L Glucose 276 H POC Glucose 250 H Lactic Acid Calcium Magnesium Ferritin Total Bilirubin Direct Bilirubin AST ALT Alkaline Phosphatase Lactate Dehydrogenase C-Reactive Protein Total Protein Albumin Triglycerides Lipase Arterial Blood Glucose Arterial Blood Ionized Calcium Urine WBC (Auto) Coronavirus (PCR) SARS-CoV-2 IgG Ab Crossmatch 06/16/20 06/16/20 06/17/20 12:44 18:18 00:39 WBC RBC Hgb Hct MCV MCH MCHC RDW Lymph % (Auto) Lymph # (Auto) [place] # (Auto) Baso # (Auto) Seg Neutrophils % Seg Neuts % (Manual) Lymphocytes % (Manual) Nucleated RBC % Seg Neutrophils # Seg Neutrophils # Man Lymphocytes # (Manual) Monocytes # (Manual) Eosinophils # (Manual) PT INR APTT D-Dimer Heparin Anti-Xa Level ABG pH POC ABG pCO2 POC ABG pO2 ABG pO2 ABG HCO3 ABG O2 Saturation ABG Base Excess ABG Hemoglobin ABG Oxyhemoglobin ABG Sodium ABG Potassium ABG Chloride ABG Glucose Oxyhemoglobin Carboxyhemoglobin Sodium Potassium Chloride Carbon Dioxide BUN Creatinine Glucose POC Glucose 279 H 239 H 247 H Lactic Acid Calcium Magnesium Ferritin Total Bilirubin Direct Bilirubin AST ALT Alkaline Phosphatase Lactate Dehydrogenase C-Reactive Protein Total Protein Albumin Triglycerides Lipase Arterial Blood Glucose Arterial Blood Ionized Calcium Urine WBC (Auto) Coronavirus (PCR) SARS-CoV-2 IgG Ab Crossmatch 06/17/20 06/17/20 06/17/20 03:40 04:08 10:54 WBC RBC Hgb Hct MCV MCH MCHC RDW Lymph % (Auto) Lymph # (Auto) [place] # (Auto) Baso # (Auto) Seg Neutrophils % Seg Neuts % (Manual) Lymphocytes % (Manual) Nucleated RBC % Seg Neutrophils # Seg Neutrophils # Man Lymphocytes # (Manual) Monocytes # (Manual) Eosinophils # (Manual) PT INR APTT D-Dimer Heparin Anti-Xa Level ABG pH POC ABG pCO2 65.7 H POC ABG pO2 ABG pO2 ABG HCO3 ABG O2 Saturation ABG Base Excess ABG Hemoglobin 11.9 L ABG Oxyhemoglobin ABG Sodium ABG Potassium ABG Chloride 93.0 L ABG Glucose 244 H Oxyhemoglobin Carboxyhemoglobin Sodium Potassium Chloride Carbon Dioxide BUN Creatinine Glucose POC Glucose 221 H 248 H Lactic Acid Calcium Magnesium Ferritin Total Bilirubin Direct Bilirubin AST ALT Alkaline Phosphatase Lactate Dehydrogenase C-Reactive Protein Total Protein Albumin Triglycerides Lipase Arterial Blood Glucose 244 H Arterial Blood Ionized Calcium Urine WBC (Auto) Coronavirus (PCR) SARS-CoV-2 IgG Ab Crossmatch 06/17/20 06/17/20 06/17/20 17:47 23:11 23:29 WBC RBC Hgb Hct MCV MCH MCHC RDW Lymph % (Auto) Lymph # (Auto) [place] # (Auto) Baso # (Auto) Seg Neutrophils % Seg Neuts % (Manual) Lymphocytes % (Manual) Nucleated RBC % Seg Neutrophils # Seg Neutrophils # Man Lymphocytes # (Manual) Monocytes # (Manual) Eosinophils # (Manual) PT INR APTT D-Dimer Heparin Anti-Xa Level ABG pH POC ABG pCO2 85.2 H POC ABG pO2 48.4 L ABG pO2 ABG HCO3 ABG O2 Saturation ABG Base Excess ABG Hemoglobin 8.0 L ABG Oxyhemoglobin ABG Sodium ABG Potassium ABG Chloride 95.0 L ABG Glucose 292 H Oxyhemoglobin Carboxyhemoglobin Sodium Potassium Chloride Carbon Dioxide BUN Creatinine Glucose POC Glucose 245 H 252 H Lactic Acid Calcium Magnesium Ferritin Total Bilirubin Direct Bilirubin AST ALT Alkaline Phosphatase Lactate Dehydrogenase C-Reactive Protein Total Protein Albumin Triglycerides Lipase Arterial Blood Glucose 292 H Arterial Blood Ionized Calcium Urine WBC (Auto) Coronavirus (PCR) SARS-CoV-2 IgG Ab Crossmatch 06/18/20 06/18/20 06/18/20 03:14 05:34 11:47 WBC RBC Hgb Hct MCV MCH MCHC RDW Lymph % (Auto) Lymph # (Auto) [place] # (Auto) Baso # (Auto) Seg Neutrophils % Seg Neuts % (Manual) Lymphocytes % (Manual) Nucleated RBC % Seg Neutrophils # Seg Neutrophils # Man Lymphocytes # (Manual) Monocytes # (Manual) Eosinophils # (Manual) PT INR APTT D-Dimer Heparin Anti-Xa Level ABG pH POC ABG pCO2 65.4 H POC ABG pO2 160.7 H ABG pO2 ABG HCO3 ABG O2 Saturation ABG Base Excess ABG Hemoglobin 7.8 L ABG Oxyhemoglobin ABG Sodium ABG Potassium ABG Chloride 95.0 L ABG Glucose 251 H Oxyhemoglobin Carboxyhemoglobin Sodium Potassium Chloride Carbon Dioxide BUN Creatinine Glucose POC Glucose 243 H 263 H Lactic Acid Calcium Magnesium Ferritin Total Bilirubin Direct Bilirubin AST ALT Alkaline Phosphatase Lactate Dehydrogenase C-Reactive Protein Total Protein Albumin Triglycerides Lipase Arterial Blood Glucose 251 H Arterial Blood Ionized Calcium Urine WBC (Auto) Coronavirus (PCR) SARS-CoV-2 IgG Ab Crossmatch 06/18/20 06/18/20 06/19/20 17:31 23:33 04:32 WBC RBC Hgb Hct MCV MCH MCHC RDW Lymph % (Auto) Lymph # (Auto) [place] # (Auto) Baso # (Auto) Seg Neutrophils % Seg Neuts % (Manual) Lymphocytes % (Manual) Nucleated RBC % Seg Neutrophils # Seg Neutrophils # Man Lymphocytes # (Manual) Monocytes # (Manual) Eosinophils # (Manual) PT INR APTT D-Dimer Heparin Anti-Xa Level ABG pH POC ABG pCO2 83.1 H POC ABG pO2 65.8 L ABG pO2 ABG HCO3 ABG O2 Saturation ABG Base Excess ABG Hemoglobin 8.9 L ABG Oxyhemoglobin ABG Sodium ABG Potassium ABG Chloride 96.0 L ABG Glucose 297 H Oxyhemoglobin Carboxyhemoglobin Sodium Potassium Chloride Carbon Dioxide BUN Creatinine Glucose POC Glucose 286 H 238 H Lactic Acid Calcium Magnesium Ferritin Total Bilirubin Direct Bilirubin AST ALT Alkaline Phosphatase Lactate Dehydrogenase C-Reactive Protein Total Protein Albumin Triglycerides Lipase Arterial Blood Glucose 297 H Arterial Blood Ionized Calcium Urine WBC (Auto) Coronavirus (PCR) SARS-CoV-2 IgG Ab Crossmatch 06/19/20 06/19/20 06/19/20 05:55 11:20 17:12 WBC RBC Hgb Hct MCV MCH MCHC RDW Lymph % (Auto) Lymph # (Auto) [place] # (Auto) Baso # (Auto) Seg Neutrophils % Seg Neuts % (Manual) Lymphocytes % (Manual) Nucleated RBC % Seg Neutrophils # Seg Neutrophils # Man Lymphocytes # (Manual) Monocytes # (Manual) Eosinophils # (Manual) PT INR APTT D-Dimer Heparin Anti-Xa Level ABG pH POC ABG pCO2 POC ABG pO2 ABG pO2 ABG HCO3 ABG O2 Saturation ABG Base Excess ABG Hemoglobin ABG Oxyhemoglobin ABG Sodium ABG Potassium ABG Chloride ABG Glucose Oxyhemoglobin Carboxyhemoglobin Sodium Potassium Chloride Carbon Dioxide BUN Creatinine Glucose POC Glucose 274 H 282 H 298 H Lactic Acid Calcium Magnesium Ferritin Total Bilirubin Direct Bilirubin AST ALT Alkaline Phosphatase Lactate Dehydrogenase C-Reactive Protein Total Protein Albumin Triglycerides Lipase Arterial Blood Glucose Arterial Blood Ionized Calcium Urine WBC (Auto) Coronavirus (PCR) SARS-CoV-2 IgG Ab Crossmatch 06/19/20 06/20/20 06/20/20 23:08 03:33 06:01 WBC RBC Hgb Hct MCV MCH MCHC RDW Lymph % (Auto) Lymph # (Auto) [place] # (Auto) Baso # (Auto) Seg Neutrophils % Seg Neuts % (Manual) Lymphocytes % (Manual) Nucleated RBC % Seg Neutrophils # Seg Neutrophils # Man Lymphocytes # (Manual) Monocytes # (Manual) Eosinophils # (Manual) PT INR APTT D-Dimer Heparin Anti-Xa Level ABG pH POC ABG pCO2 POC ABG pO2 ABG pO2 69.9 L ABG HCO3 50.8 H ABG O2 Saturation ABG Base Excess 24.2 H ABG Hemoglobin 5.8 L ABG Oxyhemoglobin ABG Sodium ABG Potassium ABG Chloride ABG Glucose Oxyhemoglobin Carboxyhemoglobin Sodium Potassium Chloride Carbon Dioxide BUN Creatinine Glucose POC Glucose 293 H 182 H Lactic Acid Calcium Magnesium Ferritin Total Bilirubin Direct Bilirubin AST ALT Alkaline Phosphatase Lactate Dehydrogenase C-Reactive Protein Total Protein Albumin Triglycerides Lipase Arterial Blood Glucose Arterial Blood Ionized Calcium Urine WBC (Auto) Coronavirus (PCR) SARS-CoV-2 IgG Ab Crossmatch 06/20/20 06/20/20 06/20/20 11:47 17:46 23:37 WBC RBC Hgb Hct MCV MCH MCHC RDW Lymph % (Auto) Lymph # (Auto) [place] # (Auto) Baso # (Auto) Seg Neutrophils % Seg Neuts % (Manual) Lymphocytes % (Manual) Nucleated RBC % Seg Neutrophils # Seg Neutrophils # Man Lymphocytes # (Manual) Monocytes # (Manual) Eosinophils # (Manual) PT INR APTT D-Dimer Heparin Anti-Xa Level ABG pH POC ABG pCO2 POC ABG pO2 ABG pO2 ABG HCO3 ABG O2 Saturation ABG Base Excess ABG Hemoglobin ABG Oxyhemoglobin ABG Sodium ABG Potassium ABG Chloride ABG Glucose Oxyhemoglobin Carboxyhemoglobin Sodium Potassium Chloride Carbon Dioxide BUN Creatinine Glucose POC Glucose 170 H 215 H 256 H Lactic Acid Calcium Magnesium Ferritin Total Bilirubin Direct Bilirubin AST ALT Alkaline Phosphatase Lactate Dehydrogenase C-Reactive Protein Total Protein Albumin Triglycerides Lipase Arterial Blood Glucose Arterial Blood Ionized Calcium Urine WBC (Auto) Coronavirus (PCR) SARS-CoV-2 IgG Ab Crossmatch 06/21/20 06/21/20 06/21/20 04:00 05:14 05:51 WBC RBC Hgb Hct MCV MCH MCHC RDW Lymph % (Auto) Lymph # (Auto) [place] # (Auto) Baso # (Auto) Seg Neutrophils % Seg Neuts % (Manual) Lymphocytes % (Manual) Nucleated RBC % Seg Neutrophils # Seg Neutrophils # Man Lymphocytes # (Manual) Monocytes # (Manual) Eosinophils # (Manual) PT INR APTT D-Dimer Heparin Anti-Xa Level ABG pH 7.474 H POC ABG pCO2 POC ABG pO2 ABG pO2 ABG HCO3 52.1 H ABG O2 Saturation ABG Base Excess 23.3 H ABG Hemoglobin 5.3 L ABG Oxyhemoglobin ABG Sodium ABG Potassium ABG Chloride ABG Glucose Oxyhemoglobin 93.8 L Carboxyhemoglobin Sodium Potassium Chloride Carbon Dioxide BUN Creatinine Glucose POC Glucose 122 H 129 H Lactic Acid Calcium Magnesium Ferritin Total Bilirubin Direct Bilirubin AST ALT Alkaline Phosphatase Lactate Dehydrogenase C-Reactive Protein Total Protein Albumin Triglycerides Lipase Arterial Blood Glucose Arterial Blood Ionized Calcium Urine WBC (Auto) Coronavirus (PCR) SARS-CoV-2 IgG Ab Crossmatch 06/21/20 06/21/20 06/21/20 11:00 11:00 11:42 WBC 14.2 H RBC 1.85 L Hgb 6.2 L Hct 19.5 L* MCV 105 H MCH 34 H MCHC RDW 18.0 H Lymph % (Auto) Lymph # (Auto) [place] # (Auto) Baso # (Auto) Seg Neutrophils % Seg Neuts % (Manual) Lymphocytes % (Manual) Nucleated RBC % Seg Neutrophils # Seg Neutrophils # Man Lymphocytes # (Manual) Monocytes # (Manual) Eosinophils # (Manual) PT INR APTT D-Dimer Heparin Anti-Xa Level ABG pH POC ABG pCO2 POC ABG pO2 ABG pO2 ABG HCO3 ABG O2 Saturation ABG Base Excess ABG Hemoglobin ABG Oxyhemoglobin ABG Sodium ABG Potassium ABG Chloride ABG Glucose Oxyhemoglobin Carboxyhemoglobin Sodium 147 H Potassium Chloride Carbon Dioxide 51 H* BUN 31 H Creatinine 0.5 L Glucose 224 H POC Glucose 217 H Lactic Acid Calcium Magnesium Ferritin Total Bilirubin Direct Bilirubin AST ALT Alkaline Phosphatase Lactate Dehydrogenase C-Reactive Protein Total Protein Albumin Triglycerides Lipase Arterial Blood Glucose Arterial Blood Ionized Calcium Urine WBC (Auto) Coronavirus (PCR) SARS-CoV-2 IgG Ab Crossmatch 06/21/20 06/21/20 06/21/20 14:18 14:30 18:36 WBC RBC Hgb Hct MCV MCH MCHC RDW Lymph % (Auto) Lymph # (Auto) [place] # (Auto) Baso # (Auto) Seg Neutrophils % Seg Neuts % (Manual) Lymphocytes % (Manual) Nucleated RBC % Seg Neutrophils # Seg Neutrophils # Man Lymphocytes # (Manual) Monocytes # (Manual) Eosinophils # (Manual) PT 15.1 H INR 1.19 H APTT D-Dimer Heparin Anti-Xa Level ABG pH POC ABG pCO2 POC ABG pO2 ABG pO2 ABG HCO3 ABG O2 Saturation ABG Base Excess ABG Hemoglobin ABG Oxyhemoglobin ABG Sodium ABG Potassium ABG Chloride ABG Glucose Oxyhemoglobin Carboxyhemoglobin Sodium Potassium Chloride Carbon Dioxide BUN Creatinine Glucose POC Glucose 185 H Lactic Acid Calcium Magnesium Ferritin Total Bilirubin Direct Bilirubin AST ALT Alkaline Phosphatase Lactate Dehydrogenase C-Reactive Protein Total Protein Albumin Triglycerides Lipase Arterial Blood Glucose Arterial Blood Ionized Calcium Urine WBC (Auto) Coronavirus (PCR) SARS-CoV-2 IgG Ab Crossmatch See Detail 06/21/20 06/22/20 06/22/20 21:14 03:50 04:00 WBC RBC Hgb Hct MCV MCH MCHC RDW Lymph % (Auto) Lymph # (Auto) [place] # (Auto) Baso # (Auto) Seg Neutrophils % Seg Neuts % (Manual) Lymphocytes % (Manual) Nucleated RBC % Seg Neutrophils # Seg Neutrophils # Man Lymphocytes # (Manual) Monocytes # (Manual) Eosinophils # (Manual) PT INR APTT D-Dimer Heparin Anti-Xa Level ABG pH 7.451 H POC ABG pCO2 POC ABG pO2 ABG pO2 ABG HCO3 47.5 H ABG O2 Saturation ABG Base Excess 22.0 H ABG Hemoglobin < 5.1 L ABG Oxyhemoglobin ABG Sodium ABG Potassium ABG Chloride ABG Glucose Oxyhemoglobin 94.1 L Carboxyhemoglobin Sodium 149 H Potassium 3.5 L Chloride Carbon Dioxide 42 H* D BUN 34 H Creatinine 0.4 L Glucose 219 H POC Glucose 250 H Lactic Acid Calcium Magnesium Ferritin Total Bilirubin Direct Bilirubin AST ALT Alkaline Phosphatase Lactate Dehydrogenase C-Reactive Protein Total Protein Albumin Triglycerides Lipase Arterial Blood Glucose Arterial Blood Ionized Calcium Urine WBC (Auto) Coronavirus (PCR) SARS-CoV-2 IgG Ab Crossmatch 06/22/20 06/22/20 06/22/20 12:16 14:29 17:56 WBC RBC Hgb Hct MCV MCH MCHC RDW Lymph % (Auto) Lymph # (Auto) [place] # (Auto) Baso # (Auto) Seg Neutrophils % Seg Neuts % (Manual) Lymphocytes % (Manual) Nucleated RBC % Seg Neutrophils # Seg Neutrophils # Man Lymphocytes # (Manual) Monocytes # (Manual) Eosinophils # (Manual) PT 11.8 L INR APTT 23.5 L D-Dimer Heparin Anti-Xa Level ABG pH POC ABG pCO2 POC ABG pO2 ABG pO2 ABG HCO3 ABG O2 Saturation ABG Base Excess ABG Hemoglobin ABG Oxyhemoglobin ABG Sodium ABG Potassium ABG Chloride ABG Glucose Oxyhemoglobin Carboxyhemoglobin Sodium Potassium Chloride Carbon Dioxide BUN Creatinine Glucose POC Glucose 215 H 215 H Lactic Acid Calcium Magnesium Ferritin Total Bilirubin Direct Bilirubin AST ALT Alkaline Phosphatase Lactate Dehydrogenase C-Reactive Protein Total Protein Albumin Triglycerides Lipase Arterial Blood Glucose Arterial Blood Ionized Calcium Urine WBC (Auto) Coronavirus (PCR) SARS-CoV-2 IgG Ab Crossmatch 06/22/20 06/22/20 06/22/20 23:36 23:45 Unknown WBC 14.1 H RBC 2.70 L Hgb 8.9 L 8.9 L Hct 26.9 L 27.2 L D MCV 101 H MCH 33 H MCHC RDW 17.7 H Lymph % (Auto) Lymph # (Auto) [place] # (Auto) Baso # (Auto) Seg Neutrophils % Seg Neuts % (Manual) 92.0 H Lymphocytes % (Manual) 5.0 L Nucleated RBC % Seg Neutrophils # Seg Neutrophils # Man 13.0 H Lymphocytes # (Manual) 0.7 L Monocytes # (Manual) Eosinophils # (Manual) PT INR APTT D-Dimer Heparin Anti-Xa Level ABG pH POC ABG pCO2 POC ABG pO2 ABG pO2 ABG HCO3 ABG O2 Saturation ABG Base Excess ABG Hemoglobin ABG Oxyhemoglobin ABG Sodium ABG Potassium ABG Chloride ABG Glucose Oxyhemoglobin Carboxyhemoglobin Sodium Potassium Chloride Carbon Dioxide BUN Creatinine Glucose POC Glucose 208 H Lactic Acid Calcium Magnesium Ferritin Total Bilirubin Direct Bilirubin AST ALT Alkaline Phosphatase Lactate Dehydrogenase C-Reactive Protein Total Protein Albumin Triglycerides Lipase Arterial Blood Glucose Arterial Blood Ionized Calcium Urine WBC (Auto) Coronavirus (PCR) SARS-CoV-2 IgG Ab Crossmatch 06/23/20 06/23/20 06/23/20 05:17 05:19 06:50 WBC RBC Hgb Hct MCV MCH MCHC RDW Lymph % (Auto) Lymph # (Auto) [place] # (Auto) Baso # (Auto) Seg Neutrophils % Seg Neuts % (Manual) Lymphocytes % (Manual) Nucleated RBC % Seg Neutrophils # Seg Neutrophils # Man Lymphocytes # (Manual) Monocytes # (Manual) Eosinophils # (Manual) PT INR APTT D-Dimer Heparin Anti-Xa Level ABG pH POC ABG pCO2 69.7 H POC ABG pO2 63.3 L ABG pO2 ABG HCO3 ABG O2 Saturation ABG Base Excess ABG Hemoglobin 10.1 L ABG Oxyhemoglobin ABG Sodium ABG Potassium 3.3 L ABG Chloride ABG Glucose 226 H Oxyhemoglobin Carboxyhemoglobin Sodium Potassium 3.0 L Chloride Carbon Dioxide 41 H* BUN 26 H Creatinine 0.4 L Glucose 209 H POC Glucose 200 H Lactic Acid Calcium Magnesium Ferritin Total Bilirubin Direct Bilirubin AST ALT Alkaline Phosphatase Lactate Dehydrogenase C-Reactive Protein Total Protein Albumin 2.9 L Triglycerides Lipase Arterial Blood Glucose 226 H Arterial Blood Ionized Calcium Urine WBC (Auto) Coronavirus (PCR) SARS-CoV-2 IgG Ab Crossmatch 06/23/20 06/23/20 06/23/20 09:41 12:04 18:16 WBC RBC Hgb 9.1 L Hct 28.0 L MCV MCH MCHC RDW Lymph % (Auto) Lymph # (Auto) [place] # (Auto) Baso # (Auto) Seg Neutrophils % Seg Neuts % (Manual) Lymphocytes % (Manual) Nucleated RBC % Seg Neutrophils # Seg Neutrophils # Man Lymphocytes # (Manual) Monocytes # (Manual) Eosinophils # (Manual) PT INR APTT D-Dimer Heparin Anti-Xa Level ABG pH POC ABG pCO2 POC ABG pO2 ABG pO2 ABG HCO3 ABG O2 Saturation ABG Base Excess ABG Hemoglobin ABG Oxyhemoglobin ABG Sodium ABG Potassium ABG Chloride ABG Glucose Oxyhemoglobin Carboxyhemoglobin Sodium Potassium Chloride Carbon Dioxide BUN Creatinine Glucose POC Glucose 146 H 162 H Lactic Acid Calcium Magnesium Ferritin Total Bilirubin Direct Bilirubin AST ALT Alkaline Phosphatase Lactate Dehydrogenase C-Reactive Protein Total Protein Albumin Triglycerides Lipase Arterial Blood Glucose Arterial Blood Ionized Calcium Urine WBC (Auto) Coronavirus (PCR) SARS-CoV-2 IgG Ab Crossmatch 06/23/20 06/23/20 06/24/20 23:24 23:41 02:39 WBC RBC Hgb 8.2 L 8.8 L Hct 24.9 L 26.8 L MCV MCH MCHC RDW Lymph % (Auto) Lymph # (Auto) [place] # (Auto) Baso # (Auto) Seg Neutrophils % Seg Neuts % (Manual) Lymphocytes % (Manual) Nucleated RBC % Seg Neutrophils # Seg Neutrophils # Man Lymphocytes # (Manual) Monocytes # (Manual) Eosinophils # (Manual) PT INR APTT D-Dimer Heparin Anti-Xa Level ABG pH POC ABG pCO2 POC ABG pO2 ABG pO2 ABG HCO3 ABG O2 Saturation ABG Base Excess ABG Hemoglobin ABG Oxyhemoglobin ABG Sodium ABG Potassium ABG Chloride ABG Glucose Oxyhemoglobin Carboxyhemoglobin Sodium Potassium Chloride Carbon Dioxide BUN Creatinine Glucose POC Glucose 248 H Lactic Acid Calcium Magnesium Ferritin Total Bilirubin Direct Bilirubin AST ALT Alkaline Phosphatase Lactate Dehydrogenase C-Reactive Protein Total Protein Albumin Triglycerides Lipase Arterial Blood Glucose Arterial Blood Ionized Calcium Urine WBC (Auto) Coronavirus (PCR) SARS-CoV-2 IgG Ab Crossmatch 06/24/20 06/24/20 06/24/20 02:39 02:45 05:31 WBC RBC Hgb Hct MCV MCH MCHC RDW Lymph % (Auto) Lymph # (Auto) [place] # (Auto) Baso # (Auto) Seg Neutrophils % Seg Neuts % (Manual) Lymphocytes % (Manual) Nucleated RBC % Seg Neutrophils # Seg Neutrophils # Man Lymphocytes # (Manual) Monocytes # (Manual) Eosinophils # (Manual) PT INR APTT D-Dimer Heparin Anti-Xa Level ABG pH POC ABG pCO2 66.9 H POC ABG pO2 109.7 H ABG pO2 ABG HCO3 ABG O2 Saturation ABG Base Excess ABG Hemoglobin 9.7 L ABG Oxyhemoglobin ABG Sodium 135.0 L ABG Potassium ABG Chloride 97.0 L ABG Glucose 277 H Oxyhemoglobin Carboxyhemoglobin Sodium 136 L Potassium Chloride 95.0 L Carbon Dioxide 34 H D BUN 24 H Creatinine 0.3 L Glucose 260 H POC Glucose 164 H Lactic Acid Calcium Magnesium Ferritin Total Bilirubin Direct Bilirubin AST ALT Alkaline Phosphatase Lactate Dehydrogenase C-Reactive Protein Total Protein 5.2 L Albumin 2.6 L Triglycerides Lipase Arterial Blood Glucose 277 H Arterial Blood Ionized Calcium Urine WBC (Auto) Coronavirus (PCR) SARS-CoV-2 IgG Ab Crossmatch 06/24/20 06/24/20 06/24/20 10:00 11:49 17:39 WBC RBC Hgb 8.9 L Hct 26.5 L MCV MCH MCHC RDW Lymph % (Auto) Lymph # (Auto) [place] # (Auto) Baso # (Auto) Seg Neutrophils % Seg Neuts % (Manual) Lymphocytes % (Manual) Nucleated RBC % Seg Neutrophils # Seg Neutrophils # Man Lymphocytes # (Manual) Monocytes # (Manual) Eosinophils # (Manual) PT INR APTT D-Dimer Heparin Anti-Xa Level ABG pH POC ABG pCO2 POC ABG pO2 ABG pO2 ABG HCO3 ABG O2 Saturation ABG Base Excess ABG Hemoglobin ABG Oxyhemoglobin ABG Sodium ABG Potassium ABG Chloride ABG Glucose Oxyhemoglobin Carboxyhemoglobin Sodium Potassium Chloride Carbon Dioxide BUN Creatinine Glucose POC Glucose 198 H 223 H Lactic Acid Calcium Magnesium Ferritin Total Bilirubin Direct Bilirubin AST ALT Alkaline Phosphatase Lactate Dehydrogenase C-Reactive Protein Total Protein Albumin Triglycerides Lipase Arterial Blood Glucose Arterial Blood Ionized Calcium Urine WBC (Auto) Coronavirus (PCR) SARS-CoV-2 IgG Ab Crossmatch 06/24/20 06/25/20 06/25/20 23:56 02:16 04:08 WBC RBC Hgb Hct MCV MCH MCHC RDW Lymph % (Auto) Lymph # (Auto) [place] # (Auto) Baso # (Auto) Seg Neutrophils % Seg Neuts % (Manual) Lymphocytes % (Manual) Nucleated RBC % Seg Neutrophils # Seg Neutrophils # Man Lymphocytes # (Manual) Monocytes # (Manual) Eosinophils # (Manual) PT INR APTT D-Dimer Heparin Anti-Xa Level ABG pH 7.454 H POC ABG pCO2 56.9 H POC ABG pO2 61.0 L ABG pO2 ABG HCO3 ABG O2 Saturation ABG Base Excess ABG Hemoglobin ABG Oxyhemoglobin ABG Sodium 134.3 L ABG Potassium ABG Chloride 92.0 L ABG Glucose 246 H Oxyhemoglobin Carboxyhemoglobin Sodium 134 L Potassium Chloride 89.7 L Carbon Dioxide 36 H BUN Creatinine 0.3 L Glucose 254 H POC Glucose 225 H Lactic Acid Calcium Magnesium Ferritin Total Bilirubin Direct Bilirubin AST ALT Alkaline Phosphatase Lactate Dehydrogenase C-Reactive Protein Total Protein Albumin 2.9 L Triglycerides Lipase Arterial Blood Glucose 246 H Arterial Blood Ionized Calcium Urine WBC (Auto) Coronavirus (PCR) SARS-CoV-2 IgG Ab Crossmatch 06/25/20 06/25/20 06/25/20 05:44 11:35 17:33 WBC RBC Hgb Hct MCV MCH MCHC RDW Lymph % (Auto) Lymph # (Auto) [place] # (Auto) Baso # (Auto) Seg Neutrophils % Seg Neuts % (Manual) Lymphocytes % (Manual) Nucleated RBC % Seg Neutrophils # Seg Neutrophils # Man Lymphocytes # (Manual) Monocytes # (Manual) Eosinophils # (Manual) PT INR APTT D-Dimer Heparin Anti-Xa Level ABG pH POC ABG pCO2 POC ABG pO2 ABG pO2 ABG HCO3 ABG O2 Saturation ABG Base Excess ABG Hemoglobin ABG Oxyhemoglobin ABG Sodium ABG Potassium ABG Chloride ABG Glucose Oxyhemoglobin Carboxyhemoglobin Sodium Potassium Chloride Carbon Dioxide BUN Creatinine Glucose POC Glucose 170 H 175 H 229 H Lactic Acid Calcium Magnesium Ferritin Total Bilirubin Direct Bilirubin AST ALT Alkaline Phosphatase Lactate Dehydrogenase C-Reactive Protein Total Protein Albumin Triglycerides Lipase Arterial Blood Glucose Arterial Blood Ionized Calcium Urine WBC (Auto) Coronavirus (PCR) SARS-CoV-2 IgG Ab Crossmatch 06/25/20 06/26/20 06/26/20 23:55 02:17 02:17 WBC RBC Hgb 10.0 L Hct 30.4 L MCV MCH MCHC RDW Lymph % (Auto) Lymph # (Auto) [place] # (Auto) Baso # (Auto) Seg Neutrophils % Seg Neuts % (Manual) Lymphocytes % (Manual) Nucleated RBC % Seg Neutrophils # Seg Neutrophils # Man Lymphocytes # (Manual) Monocytes # (Manual) Eosinophils # (Manual) PT INR APTT D-Dimer Heparin Anti-Xa Level ABG pH POC ABG pCO2 POC ABG pO2 ABG pO2 ABG HCO3 ABG O2 Saturation ABG Base Excess ABG Hemoglobin ABG Oxyhemoglobin ABG Sodium ABG Potassium ABG Chloride ABG Glucose Oxyhemoglobin Carboxyhemoglobin Sodium 136 L Potassium Chloride 90.1 L Carbon Dioxide 39 H BUN Creatinine 0.2 L Glucose 232 H POC Glucose 192 H Lactic Acid Calcium Magnesium Ferritin Total Bilirubin Direct Bilirubin AST ALT Alkaline Phosphatase Lactate Dehydrogenase C-Reactive Protein Total Protein 6.1 L Albumin 2.9 L Triglycerides Lipase Arterial Blood Glucose Arterial Blood Ionized Calcium Urine WBC (Auto) Coronavirus (PCR) SARS-CoV-2 IgG Ab Crossmatch 06/26/20 06/26/20 06/26/20 04:15 04:49 05:28 WBC RBC Hgb Hct MCV MCH MCHC RDW Lymph % (Auto) Lymph # (Auto) [place] # (Auto) Baso # (Auto) Seg Neutrophils % Seg Neuts % (Manual) Lymphocytes % (Manual) Nucleated RBC % Seg Neutrophils # Seg Neutrophils # Man Lymphocytes # (Manual) Monocytes # (Manual) Eosinophils # (Manual) PT INR APTT D-Dimer Heparin Anti-Xa Level ABG pH 7.453 H POC ABG pCO2 59.6 H POC ABG pO2 ABG pO2 ABG HCO3 ABG O2 Saturation ABG Base Excess ABG Hemoglobin 10.0 L ABG Oxyhemoglobin ABG Sodium 134.2 L ABG Potassium 3.3 L ABG Chloride 92.0 L ABG Glucose 305 H Oxyhemoglobin Carboxyhemoglobin Sodium Potassium Chloride Carbon Dioxide BUN Creatinine Glucose POC Glucose 234 H Lactic Acid Calcium Magnesium Ferritin Total Bilirubin Direct Bilirubin AST ALT Alkaline Phosphatase Lactate Dehydrogenase C-Reactive Protein Total Protein Albumin Triglycerides 203 H Lipase Arterial Blood Glucose 305 H Arterial Blood Ionized Calcium Urine WBC (Auto) Coronavirus (PCR) SARS-CoV-2 IgG Ab Crossmatch 06/26/20 06/26/20 06/26/20 11:58 17:58 21:32 WBC RBC Hgb Hct MCV MCH MCHC RDW Lymph % (Auto) Lymph # (Auto) [place] # (Auto) Baso # (Auto) Seg Neutrophils % Seg Neuts % (Manual) Lymphocytes % (Manual) Nucleated RBC % Seg Neutrophils # Seg Neutrophils # Man Lymphocytes # (Manual) Monocytes # (Manual) Eosinophils # (Manual) PT INR APTT D-Dimer Heparin Anti-Xa Level ABG pH POC ABG pCO2 POC ABG pO2 ABG pO2 ABG HCO3 ABG O2 Saturation ABG Base Excess ABG Hemoglobin ABG Oxyhemoglobin ABG Sodium ABG Potassium ABG Chloride ABG Glucose Oxyhemoglobin Carboxyhemoglobin Sodium Potassium Chloride Carbon Dioxide BUN Creatinine Glucose POC Glucose 198 H 193 H 191 H Lactic Acid Calcium Magnesium Ferritin Total Bilirubin Direct Bilirubin AST ALT Alkaline Phosphatase Lactate Dehydrogenase C-Reactive Protein Total Protein Albumin Triglycerides Lipase Arterial Blood Glucose Arterial Blood Ionized Calcium Urine WBC (Auto) Coronavirus (PCR) SARS-CoV-2 IgG Ab Crossmatch 06/26/20 06/27/20 06/27/20 23:40 04:35 05:32 WBC RBC Hgb Hct MCV MCH MCHC RDW Lymph % (Auto) Lymph # (Auto) [place] # (Auto) Baso # (Auto) Seg Neutrophils % Seg Neuts % (Manual) Lymphocytes % (Manual) Nucleated RBC % Seg Neutrophils # Seg Neutrophils # Man Lymphocytes # (Manual) Monocytes # (Manual) Eosinophils # (Manual) PT INR APTT D-Dimer Heparin Anti-Xa Level ABG pH 7.464 H POC ABG pCO2 60.8 H POC ABG pO2 ABG pO2 ABG HCO3 ABG O2 Saturation ABG Base Excess ABG Hemoglobin 10.1 L ABG Oxyhemoglobin ABG Sodium ABG Potassium 2.9 L ABG Chloride 92.0 L ABG Glucose 298 H Oxyhemoglobin Carboxyhemoglobin Sodium Potassium Chloride Carbon Dioxide BUN Creatinine Glucose POC Glucose 241 H 211 H Lactic Acid Calcium Magnesium Ferritin Total Bilirubin Direct Bilirubin AST ALT Alkaline Phosphatase Lactate Dehydrogenase C-Reactive Protein Total Protein Albumin Triglycerides Lipase Arterial Blood Glucose 298 H Arterial Blood Ionized Calcium Urine WBC (Auto) Coronavirus (PCR) SARS-CoV-2 IgG Ab Crossmatch 06/27/20 06/27/20 06/27/20 12:37 18:08 20:52 WBC RBC Hgb Hct MCV MCH MCHC RDW Lymph % (Auto) Lymph # (Auto) [place] # (Auto) Baso # (Auto) Seg Neutrophils % Seg Neuts % (Manual) Lymphocytes % (Manual) Nucleated RBC % Seg Neutrophils # Seg Neutrophils # Man Lymphocytes # (Manual) Monocytes # (Manual) Eosinophils # (Manual) PT INR APTT D-Dimer Heparin Anti-Xa Level ABG pH POC ABG pCO2 POC ABG pO2 ABG pO2 ABG HCO3 ABG O2 Saturation ABG Base Excess ABG Hemoglobin ABG Oxyhemoglobin ABG Sodium ABG Potassium ABG Chloride ABG Glucose Oxyhemoglobin Carboxyhemoglobin Sodium Potassium Chloride Carbon Dioxide BUN Creatinine Glucose POC Glucose 182 H 197 H 195 H Lactic Acid Calcium Magnesium Ferritin Total Bilirubin Direct Bilirubin AST ALT Alkaline Phosphatase Lactate Dehydrogenase C-Reactive Protein Total Protein Albumin Triglycerides Lipase Arterial Blood Glucose Arterial Blood Ionized Calcium Urine WBC (Auto) Coronavirus (PCR) SARS-CoV-2 IgG Ab Crossmatch 06/27/20 06/28/20 06/28/20 Unknown 04:17 04:50 WBC RBC Hgb Hct MCV MCH MCHC RDW Lymph % (Auto) Lymph # (Auto) [place] # (Auto) Baso # (Auto) Seg Neutrophils % Seg Neuts % (Manual) Lymphocytes % (Manual) Nucleated RBC % Seg Neutrophils # Seg Neutrophils # Man Lymphocytes # (Manual) Monocytes # (Manual) Eosinophils # (Manual) PT INR APTT D-Dimer Heparin Anti-Xa Level ABG pH POC ABG pCO2 58.6 H POC ABG pO2 60.1 L ABG pO2 ABG HCO3 ABG O2 Saturation ABG Base Excess ABG Hemoglobin 10.0 L ABG Oxyhemoglobin ABG Sodium 125.3 L ABG Potassium ABG Chloride 93.0 L ABG Glucose 308 H Oxyhemoglobin Carboxyhemoglobin Sodium Potassium 2.9 L* Chloride 93.4 L Carbon Dioxide 42 H* BUN Creatinine 0.3 L Glucose 211 H POC Glucose 252 H Lactic Acid Calcium 8.1 L Magnesium Ferritin Total Bilirubin Direct Bilirubin AST ALT Alkaline Phosphatase Lactate Dehydrogenase C-Reactive Protein Total Protein 5.1 L Albumin 2.4 L Triglycerides Lipase Arterial Blood Glucose 308 H Arterial Blood Ionized Calcium Urine WBC (Auto) Coronavirus (PCR) SARS-CoV-2 IgG Ab Crossmatch 06/28/20 06/28/20 06/28/20 06:35 06:35 11:36 WBC 18.9 H RBC 2.85 L Hgb 9.5 L Hct 28.4 L MCV 100 H MCH 33 H MCHC RDW 17.3 H Lymph % (Auto) Lymph # (Auto) [place] # (Auto) Baso # (Auto) Seg Neutrophils % 88.6 H Seg Neuts % (Manual) 95.0 H Lymphocytes % (Manual) 1.0 L Nucleated RBC % Seg Neutrophils # 15.9 H Seg Neutrophils # Man 18.0 H Lymphocytes # (Manual) 0.2 L Monocytes # (Manual) Eosinophils # (Manual) PT INR APTT D-Dimer Heparin Anti-Xa Level ABG pH POC ABG pCO2 POC ABG pO2 ABG pO2 ABG HCO3 ABG O2 Saturation ABG Base Excess ABG Hemoglobin ABG Oxyhemoglobin ABG Sodium ABG Potassium ABG Chloride ABG Glucose Oxyhemoglobin Carboxyhemoglobin Sodium Potassium Chloride 94.2 L Carbon Dioxide 38 H BUN Creatinine 0.3 L Glucose 228 H POC Glucose 243 H Lactic Acid Calcium Magnesium Ferritin Total Bilirubin Direct Bilirubin AST ALT Alkaline Phosphatase Lactate Dehydrogenase C-Reactive Protein Total Protein 6.1 L Albumin 2.7 L Triglycerides Lipase Arterial Blood Glucose Arterial Blood Ionized Calcium Urine WBC (Auto) Coronavirus (PCR) SARS-CoV-2 IgG Ab Crossmatch 06/28/20 06/28/20 06/29/20 16:53 21:10 00:06 WBC RBC Hgb Hct MCV MCH MCHC RDW Lymph % (Auto) Lymph # (Auto) [place] # (Auto) Baso # (Auto) Seg Neutrophils % Seg Neuts % (Manual) Lymphocytes % (Manual) Nucleated RBC % Seg Neutrophils # Seg Neutrophils # Man Lymphocytes # (Manual) Monocytes # (Manual) Eosinophils # (Manual) PT INR APTT D-Dimer Heparin Anti-Xa Level ABG pH POC ABG pCO2 POC ABG pO2 ABG pO2 ABG HCO3 ABG O2 Saturation ABG Base Excess ABG Hemoglobin ABG Oxyhemoglobin ABG Sodium ABG Potassium ABG Chloride ABG Glucose Oxyhemoglobin Carboxyhemoglobin Sodium Potassium Chloride Carbon Dioxide BUN Creatinine Glucose POC Glucose 211 H 195 H 200 H Lactic Acid Calcium Magnesium Ferritin Total Bilirubin Direct Bilirubin AST ALT Alkaline Phosphatase Lactate Dehydrogenase C-Reactive Protein Total Protein Albumin Triglycerides Lipase Arterial Blood Glucose Arterial Blood Ionized Calcium Urine WBC (Auto) Coronavirus (PCR) SARS-CoV-2 IgG Ab Crossmatch 06/29/20 06/29/20 06/29/20 03:11 04:00 04:00 WBC 18.8 H RBC 2.82 L Hgb 10.1 L Hct 28.5 L MCV 101 H MCH 36 H MCHC 36 H RDW 17.5 H Lymph % (Auto) 10.7 L Lymph # (Auto) [place] # (Auto) 1.0 H Baso # (Auto) 0.3 H Seg Neutrophils % 82.2 H Seg Neuts % (Manual) Lymphocytes % (Manual) Nucleated RBC % Seg Neutrophils # 15.5 H Seg Neutrophils # Man Lymphocytes # (Manual) Monocytes # (Manual) Eosinophils # (Manual) PT INR APTT D-Dimer Heparin Anti-Xa Level ABG pH POC ABG pCO2 57.5 H POC ABG pO2 69.1 L ABG pO2 ABG HCO3 ABG O2 Saturation ABG Base Excess ABG Hemoglobin 10.2 L ABG Oxyhemoglobin 92.3 L ABG Sodium 130.7 L ABG Potassium 3.2 L ABG Chloride 93.0 L ABG Glucose 228 H Oxyhemoglobin Carboxyhemoglobin Sodium 134 L Potassium 3.3 L Chloride 89.5 L Carbon Dioxide 40 H BUN Creatinine 0.2 L Glucose 190 H POC Glucose Lactic Acid Calcium Magnesium Ferritin Total Bilirubin Direct Bilirubin AST < 5 L ALT < 5 L Alkaline Phosphatase Lactate Dehydrogenase C-Reactive Protein Total Protein 5.9 L Albumin 2.2 L Triglycerides Lipase Arterial Blood Glucose 228 H Arterial Blood Ionized Calcium Urine WBC (Auto) Coronavirus (PCR) SARS-CoV-2 IgG Ab Crossmatch 06/29/20 06/29/20 06/29/20 05:00 05:23 09:36 WBC RBC Hgb Hct MCV MCH MCHC RDW Lymph % (Auto) Lymph # (Auto) [place] # (Auto) Baso # (Auto) Seg Neutrophils % Seg Neuts % (Manual) Lymphocytes % (Manual) Nucleated RBC % Seg Neutrophils # Seg Neutrophils # Man Lymphocytes # (Manual) Monocytes # (Manual) Eosinophils # (Manual) PT INR APTT D-Dimer Heparin Anti-Xa Level ABG pH POC ABG pCO2 POC ABG pO2 ABG pO2 ABG HCO3 ABG O2 Saturation ABG Base Excess ABG Hemoglobin ABG Oxyhemoglobin ABG Sodium ABG Potassium ABG Chloride ABG Glucose Oxyhemoglobin Carboxyhemoglobin Sodium Potassium Chloride Carbon Dioxide BUN Creatinine Glucose POC Glucose 165 H Lactic Acid Calcium Magnesium Ferritin Total Bilirubin Direct Bilirubin AST ALT Alkaline Phosphatase Lactate Dehydrogenase C-Reactive Protein Total Protein Albumin Triglycerides 1544 H 1799 H Lipase Arterial Blood Glucose Arterial Blood Ionized Calcium Urine WBC (Auto) Coronavirus (PCR) SARS-CoV-2 IgG Ab Crossmatch 06/29/20 06/29/20 06/29/20 09:36 12:02 18:00 WBC RBC Hgb Hct MCV MCH MCHC RDW Lymph % (Auto) Lymph # (Auto) [place] # (Auto) Baso # (Auto) Seg Neutrophils % Seg Neuts % (Manual) Lymphocytes % (Manual) Nucleated RBC % Seg Neutrophils # Seg Neutrophils # Man Lymphocytes # (Manual) Monocytes # (Manual) Eosinophils # (Manual) PT INR APTT D-Dimer Heparin Anti-Xa Level ABG pH POC ABG pCO2 POC ABG pO2 ABG pO2 ABG HCO3 ABG O2 Saturation ABG Base Excess ABG Hemoglobin ABG Oxyhemoglobin ABG Sodium ABG Potassium ABG Chloride ABG Glucose Oxyhemoglobin Carboxyhemoglobin Sodium Potassium Chloride Carbon Dioxide BUN Creatinine Glucose POC Glucose 197 H 187 H Lactic Acid Calcium Magnesium Ferritin Total Bilirubin Direct Bilirubin AST ALT Alkaline Phosphatase Lactate Dehydrogenase C-Reactive Protein Total Protein Albumin Triglycerides Lipase 86 H Arterial Blood Glucose Arterial Blood Ionized Calcium Urine WBC (Auto) Coronavirus (PCR) SARS-CoV-2 IgG Ab Crossmatch 06/29/20 06/30/20 06/30/20 23:33 03:46 05:50 WBC RBC Hgb Hct MCV MCH MCHC RDW Lymph % (Auto) Lymph # (Auto) [place] # (Auto) Baso # (Auto) Seg Neutrophils % Seg Neuts % (Manual) Lymphocytes % (Manual) Nucleated RBC % Seg Neutrophils # Seg Neutrophils # Man Lymphocytes # (Manual) Monocytes # (Manual) Eosinophils # (Manual) PT INR APTT D-Dimer Heparin Anti-Xa Level ABG pH 7.466 H POC ABG pCO2 57.3 H POC ABG pO2 66.1 L ABG pO2 ABG HCO3 ABG O2 Saturation ABG Base Excess ABG Hemoglobin 10.2 L ABG Oxyhemoglobin 92.3 L ABG Sodium 134.4 L ABG Potassium 3.2 L ABG Chloride 94.0 L ABG Glucose 178 H Oxyhemoglobin Carboxyhemoglobin Sodium Potassium Chloride Carbon Dioxide BUN Creatinine Glucose POC Glucose 170 H 170 H Lactic Acid Calcium Magnesium Ferritin Total Bilirubin Direct Bilirubin AST ALT Alkaline Phosphatase Lactate Dehydrogenase C-Reactive Protein Total Protein Albumin Triglycerides Lipase Arterial Blood Glucose 178 H Arterial Blood Ionized Calcium Urine WBC (Auto) Coronavirus (PCR) SARS-CoV-2 IgG Ab Crossmatch 06/30/20 06/30/20 06/30/20 07:00 07:00 12:04 WBC 15.6 H RBC 2.91 L Hgb 9.8 L Hct 29.7 L MCV 102 H MCH 34 H MCHC RDW 17.8 H Lymph % (Auto) Lymph # (Auto) [place] # (Auto) Baso # (Auto) Seg Neutrophils % Seg Neuts % (Manual) Lymphocytes % (Manual) 5.0 L Nucleated RBC % Seg Neutrophils # Seg Neutrophils # Man 14.8 H Lymphocytes # (Manual) 0.8 L Monocytes # (Manual) Eosinophils # (Manual) PT INR APTT D-Dimer Heparin Anti-Xa Level ABG pH POC ABG pCO2 POC ABG pO2 ABG pO2 ABG HCO3 ABG O2 Saturation ABG Base Excess ABG Hemoglobin ABG Oxyhemoglobin ABG Sodium ABG Potassium ABG Chloride ABG Glucose Oxyhemoglobin Carboxyhemoglobin Sodium Potassium Chloride 93.3 L Carbon Dioxide 43 H* BUN Creatinine 0.3 L Glucose 260 H POC Glucose 245 H Lactic Acid Calcium Magnesium Ferritin Total Bilirubin Direct Bilirubin AST ALT Alkaline Phosphatase Lactate Dehydrogenase C-Reactive Protein Total Protein Albumin 2.8 L Triglycerides 452 H Lipase Arterial Blood Glucose Arterial Blood Ionized Calcium Urine WBC (Auto) Coronavirus (PCR) SARS-CoV-2 IgG Ab Crossmatch 06/30/20 07/01/20 07/01/20 17:32 00:02 05:02 WBC RBC Hgb Hct MCV MCH MCHC RDW Lymph % (Auto) Lymph # (Auto) [place] # (Auto) Baso # (Auto) Seg Neutrophils % Seg Neuts % (Manual) Lymphocytes % (Manual) Nucleated RBC % Seg Neutrophils # Seg Neutrophils # Man Lymphocytes # (Manual) Monocytes # (Manual) Eosinophils # (Manual) PT INR APTT D-Dimer Heparin Anti-Xa Level ABG pH POC ABG pCO2 58.1 H POC ABG pO2 ABG pO2 ABG HCO3 ABG O2 Saturation ABG Base Excess ABG Hemoglobin 11.2 L ABG Oxyhemoglobin ABG Sodium 132.7 L ABG Potassium ABG Chloride 92.0 L ABG Glucose 238 H Oxyhemoglobin Carboxyhemoglobin Sodium Potassium Chloride Carbon Dioxide BUN Creatinine Glucose POC Glucose 209 H 208 H Lactic Acid Calcium Magnesium Ferritin Total Bilirubin Direct Bilirubin AST ALT Alkaline Phosphatase Lactate Dehydrogenase C-Reactive Protein Total Protein Albumin Triglycerides Lipase Arterial Blood Glucose 238 H Arterial Blood Ionized Calcium Urine WBC (Auto) Coronavirus (PCR) SARS-CoV-2 IgG Ab Crossmatch 07/01/20 07/01/20 07/01/20 06:16 06:41 06:41 WBC 18.1 H RBC 2.33 L Hgb 7.1 L Hct 21.3 L D MCV MCH MCHC RDW Lymph % (Auto) Lymph # (Auto) [place] # (Auto) Baso # (Auto) Seg Neutrophils % Seg Neuts % (Manual) 82.0 H Lymphocytes % (Manual) 7.0 L Nucleated RBC % 1.0 H Seg Neutrophils # Seg Neutrophils # Man 14.8 H Lymphocytes # (Manual) Monocytes # (Manual) 1.1 H Eosinophils # (Manual) 0.5 H PT INR APTT D-Dimer Heparin Anti-Xa Level < 0.10 L ABG pH POC ABG pCO2 POC ABG pO2 ABG pO2 ABG HCO3 ABG O2 Saturation ABG Base Excess ABG Hemoglobin ABG Oxyhemoglobin ABG Sodium ABG Potassium ABG Chloride ABG Glucose Oxyhemoglobin Carboxyhemoglobin Sodium Potassium Chloride Carbon Dioxide BUN Creatinine Glucose POC Glucose 180 H Lactic Acid Calcium Magnesium Ferritin Total Bilirubin Direct Bilirubin AST ALT Alkaline Phosphatase Lactate Dehydrogenase C-Reactive Protein Total Protein Albumin Triglycerides Lipase Arterial Blood Glucose Arterial Blood Ionized Calcium Urine WBC (Auto) Coronavirus (PCR) SARS-CoV-2 IgG Ab Crossmatch 07/01/20 07/01/20 07/01/20 08:11 12:04 16:16 WBC RBC Hgb Hct MCV MCH MCHC RDW Lymph % (Auto) Lymph # (Auto) [place] # (Auto) Baso # (Auto) Seg Neutrophils % Seg Neuts % (Manual) Lymphocytes % (Manual) Nucleated RBC % Seg Neutrophils # Seg Neutrophils # Man Lymphocytes # (Manual) Monocytes # (Manual) Eosinophils # (Manual) PT INR APTT D-Dimer Heparin Anti-Xa Level 1.02 H ABG pH POC ABG pCO2 POC ABG pO2 ABG pO2 ABG HCO3 ABG O2 Saturation ABG Base Excess ABG Hemoglobin ABG Oxyhemoglobin ABG Sodium ABG Potassium ABG Chloride ABG Glucose Oxyhemoglobin Carboxyhemoglobin Sodium 135 L Potassium 3.0 L Chloride 93.1 L Carbon Dioxide 40 H BUN Creatinine 0.3 L Glucose 140 H POC Glucose 223 H Lactic Acid Calcium Magnesium Ferritin Total Bilirubin Direct Bilirubin AST ALT Alkaline Phosphatase Lactate Dehydrogenase C-Reactive Protein Total Protein Albumin Triglycerides Lipase Arterial Blood Glucose Arterial Blood Ionized Calcium Urine WBC (Auto) Coronavirus (PCR) SARS-CoV-2 IgG Ab Crossmatch 07/01/20 07/01/20 07/02/20 17:09 23:19 00:56 WBC RBC Hgb Hct MCV MCH MCHC RDW Lymph % (Auto) Lymph # (Auto) [place] # (Auto) Baso # (Auto) Seg Neutrophils % Seg Neuts % (Manual) Lymphocytes % (Manual) Nucleated RBC % Seg Neutrophils # Seg Neutrophils # Man Lymphocytes # (Manual) Monocytes # (Manual) Eosinophils # (Manual) PT INR APTT D-Dimer Heparin Anti-Xa Level 0.22 L ABG pH POC ABG pCO2 POC ABG pO2 ABG pO2 ABG HCO3 ABG O2 Saturation ABG Base Excess ABG Hemoglobin ABG Oxyhemoglobin ABG Sodium ABG Potassium ABG Chloride ABG Glucose Oxyhemoglobin Carboxyhemoglobin Sodium Potassium Chloride Carbon Dioxide BUN Creatinine Glucose POC Glucose 233 H 255 H Lactic Acid Calcium Magnesium Ferritin Total Bilirubin Direct Bilirubin AST ALT Alkaline Phosphatase Lactate Dehydrogenase C-Reactive Protein Total Protein Albumin Triglycerides Lipase Arterial Blood Glucose Arterial Blood Ionized Calcium Urine WBC (Auto) Coronavirus (PCR) SARS-CoV-2 IgG Ab Crossmatch 07/02/20 07/02/20 07/02/20 03:51 05:35 11:39 WBC RBC Hgb Hct MCV MCH MCHC RDW Lymph % (Auto) Lymph # (Auto) [place] # (Auto) Baso # (Auto) Seg Neutrophils % Seg Neuts % (Manual) Lymphocytes % (Manual) Nucleated RBC % Seg Neutrophils # Seg Neutrophils # Man Lymphocytes # (Manual) Monocytes # (Manual) Eosinophils # (Manual) PT INR APTT D-Dimer Heparin Anti-Xa Level ABG pH POC ABG pCO2 54.9 H POC ABG pO2 52.1 L ABG pO2 ABG HCO3 ABG O2 Saturation ABG Base Excess ABG Hemoglobin 11.9 L ABG Oxyhemoglobin 82.8 L ABG Sodium 130.2 L ABG Potassium ABG Chloride 92.0 L ABG Glucose 249 H Oxyhemoglobin Carboxyhemoglobin 1.9 H Sodium Potassium Chloride Carbon Dioxide BUN Creatinine Glucose POC Glucose 205 H 235 H Lactic Acid Calcium Magnesium Ferritin Total Bilirubin Direct Bilirubin AST ALT Alkaline Phosphatase Lactate Dehydrogenase C-Reactive Protein Total Protein Albumin Triglycerides Lipase Arterial Blood Glucose 249 H Arterial Blood Ionized Calcium Urine WBC (Auto) Coronavirus (PCR) SARS-CoV-2 IgG Ab Crossmatch 07/02/20 07/02/20 07/02/20 16:08 16:08 17:54 WBC 19.8 H RBC 3.28 L Hgb 10.7 L D Hct 32.7 L D MCV 100 H MCH 33 H MCHC RDW 17.2 H Lymph % (Auto) Lymph # (Auto) [place] # (Auto) Baso # (Auto) Seg Neutrophils % Seg Neuts % (Manual) Lymphocytes % (Manual) Nucleated RBC % Seg Neutrophils # Seg Neutrophils # Man Lymphocytes # (Manual) Monocytes # (Manual) Eosinophils # (Manual) PT INR APTT D-Dimer Heparin Anti-Xa Level ABG pH POC ABG pCO2 POC ABG pO2 ABG pO2 ABG HCO3 ABG O2 Saturation ABG Base Excess ABG Hemoglobin ABG Oxyhemoglobin ABG Sodium ABG Potassium ABG Chloride ABG Glucose Oxyhemoglobin Carboxyhemoglobin Sodium 136 L Potassium Chloride 92.4 L Carbon Dioxide 35 H BUN Creatinine 0.3 L Glucose 203 H POC Glucose 175 H Lactic Acid Calcium Magnesium Ferritin Total Bilirubin Direct Bilirubin AST ALT Alkaline Phosphatase Lactate Dehydrogenase C-Reactive Protein Total Protein Albumin Triglycerides Lipase Arterial Blood Glucose Arterial Blood Ionized Calcium Urine WBC (Auto) Coronavirus (PCR) SARS-CoV-2 IgG Ab Crossmatch 07/02/20 07/03/20 07/03/20 23:46 03:25 05:54 WBC RBC Hgb Hct MCV MCH MCHC RDW Lymph % (Auto) Lymph # (Auto) [place] # (Auto) Baso # (Auto) Seg Neutrophils % Seg Neuts % (Manual) Lymphocytes % (Manual) Nucleated RBC % Seg Neutrophils # Seg Neutrophils # Man Lymphocytes # (Manual) Monocytes # (Manual) Eosinophils # (Manual) PT INR APTT D-Dimer Heparin Anti-Xa Level ABG pH 7.468 H POC ABG pCO2 51.5 H POC ABG pO2 ABG pO2 ABG HCO3 ABG O2 Saturation ABG Base Excess ABG Hemoglobin ABG Oxyhemoglobin ABG Sodium 130.2 L ABG Potassium ABG Chloride 91.0 L ABG Glucose 210 H Oxyhemoglobin Carboxyhemoglobin 1.6 H Sodium Potassium Chloride Carbon Dioxide BUN Creatinine Glucose POC Glucose 173 H 125 H Lactic Acid Calcium Magnesium Ferritin Total Bilirubin Direct Bilirubin AST ALT Alkaline Phosphatase Lactate Dehydrogenase C-Reactive Protein Total Protein Albumin Triglycerides Lipase Arterial Blood Glucose 210 H Arterial Blood Ionized Calcium Urine WBC (Auto) Coronavirus (PCR) SARS-CoV-2 IgG Ab Crossmatch 07/03/20 07/03/20 07/03/20 11:43 12:20 12:20 WBC 16.5 H RBC 3.13 L Hgb 10.4 L Hct 31.8 L MCV 102 H MCH 33 H MCHC RDW 17.2 H Lymph % (Auto) Lymph # (Auto) [place] # (Auto) Baso # (Auto) Seg Neutrophils % Seg Neuts % (Manual) Lymphocytes % (Manual) Nucleated RBC % Seg Neutrophils # Seg Neutrophils # Man Lymphocytes # (Manual) Monocytes # (Manual) Eosinophils # (Manual) PT INR APTT D-Dimer Heparin Anti-Xa Level ABG pH POC ABG pCO2 POC ABG pO2 ABG pO2 ABG HCO3 ABG O2 Saturation ABG Base Excess ABG Hemoglobin ABG Oxyhemoglobin ABG Sodium ABG Potassium ABG Chloride ABG Glucose Oxyhemoglobin Carboxyhemoglobin Sodium 132 L Potassium Chloride 88.5 L Carbon Dioxide 37 H BUN Creatinine 0.3 L Glucose 230 H POC Glucose 223 H Lactic Acid Calcium Magnesium Ferritin Total Bilirubin Direct Bilirubin AST ALT Alkaline Phosphatase Lactate Dehydrogenase C-Reactive Protein Total Protein Albumin Triglycerides Lipase Arterial Blood Glucose Arterial Blood Ionized Calcium Urine WBC (Auto) Coronavirus (PCR) SARS-CoV-2 IgG Ab Crossmatch 07/03/20 07/03/20 07/04/20 17:24 21:41 00:54 WBC RBC Hgb Hct MCV MCH MCHC RDW Lymph % (Auto) Lymph # (Auto) [place] # (Auto) Baso # (Auto) Seg Neutrophils % Seg Neuts % (Manual) Lymphocytes % (Manual) Nucleated RBC % Seg Neutrophils # Seg Neutrophils # Man Lymphocytes # (Manual) Monocytes # (Manual) Eosinophils # (Manual) PT INR APTT D-Dimer Heparin Anti-Xa Level ABG pH POC ABG pCO2 POC ABG pO2 ABG pO2 ABG HCO3 ABG O2 Saturation ABG Base Excess ABG Hemoglobin ABG Oxyhemoglobin ABG Sodium ABG Potassium ABG Chloride ABG Glucose Oxyhemoglobin Carboxyhemoglobin Sodium Potassium Chloride Carbon Dioxide BUN Creatinine Glucose POC Glucose 163 H 220 H 195 H Lactic Acid Calcium Magnesium Ferritin Total Bilirubin Direct Bilirubin AST ALT Alkaline Phosphatase Lactate Dehydrogenase C-Reactive Protein Total Protein Albumin Triglycerides Lipase Arterial Blood Glucose Arterial Blood Ionized Calcium Urine WBC (Auto) Coronavirus (PCR) SARS-CoV-2 IgG Ab Crossmatch 07/04/20 07/04/20 07/04/20 03:25 04:00 04:00 WBC 14.9 H RBC 2.91 L Hgb 9.5 L Hct 29.2 L MCV 100 H MCH 33 H MCHC RDW 16.7 H Lymph % (Auto) 8.4 L Lymph # (Auto) [place] # (Auto) 1.1 H Baso # (Auto) Seg Neutrophils % 84.2 H Seg Neuts % (Manual) Lymphocytes % (Manual) Nucleated RBC % Seg Neutrophils # 12.6 H Seg Neutrophils # Man Lymphocytes # (Manual) Monocytes # (Manual) Eosinophils # (Manual) PT INR APTT D-Dimer Heparin Anti-Xa Level ABG pH 7.474 H POC ABG pCO2 POC ABG pO2 51.8 L ABG pO2 ABG HCO3 ABG O2 Saturation ABG Base Excess ABG Hemoglobin ABG Oxyhemoglobin ABG Sodium ABG Potassium ABG Chloride ABG Glucose Oxyhemoglobin Carboxyhemoglobin Sodium Potassium 3.4 L Chloride 92.1 L Carbon Dioxide 34 H BUN Creatinine 0.3 L Glucose 173 H POC Glucose Lactic Acid Calcium Magnesium Ferritin Total Bilirubin Direct Bilirubin AST ALT Alkaline Phosphatase Lactate Dehydrogenase C-Reactive Protein Total Protein Albumin Triglycerides Lipase Arterial Blood Glucose Arterial Blood Ionized Calcium Urine WBC (Auto) Coronavirus (PCR) SARS-CoV-2 IgG Ab Crossmatch 07/04/20 07/04/20 07/04/20 06:18 11:39 17:18 WBC RBC Hgb Hct MCV MCH MCHC RDW Lymph % (Auto) Lymph # (Auto) [place] # (Auto) Baso # (Auto) Seg Neutrophils % Seg Neuts % (Manual) Lymphocytes % (Manual) Nucleated RBC % Seg Neutrophils # Seg Neutrophils # Man Lymphocytes # (Manual) Monocytes # (Manual) Eosinophils # (Manual) PT INR APTT D-Dimer Heparin Anti-Xa Level ABG pH POC ABG pCO2 POC ABG pO2 ABG pO2 ABG HCO3 ABG O2 Saturation ABG Base Excess ABG Hemoglobin ABG Oxyhemoglobin ABG Sodium ABG Potassium ABG Chloride ABG Glucose Oxyhemoglobin Carboxyhemoglobin Sodium Potassium Chloride Carbon Dioxide BUN Creatinine Glucose POC Glucose 158 H 257 H 148 H Lactic Acid Calcium Magnesium Ferritin Total Bilirubin Direct Bilirubin AST ALT Alkaline Phosphatase Lactate Dehydrogenase C-Reactive Protein Total Protein Albumin Triglycerides Lipase Arterial Blood Glucose Arterial Blood Ionized Calcium Urine WBC (Auto) Coronavirus (PCR) SARS-CoV-2 IgG Ab Crossmatch 07/04/20 07/05/20 07/05/20 23:23 03:13 05:18 WBC 13.3 H RBC 2.90 L Hgb 9.8 L Hct 29.3 L MCV 101 H MCH 34 H MCHC RDW 17.0 H Lymph % (Auto) 11.1 L Lymph # (Auto) [place] # (Auto) Baso # (Auto) Seg Neutrophils % 82.3 H Seg Neuts % (Manual) Lymphocytes % (Manual) Nucleated RBC % Seg Neutrophils # 10.9 H Seg Neutrophils # Man Lymphocytes # (Manual) Monocytes # (Manual) Eosinophils # (Manual) PT INR APTT D-Dimer Heparin Anti-Xa Level ABG pH 7.48 H POC ABG pCO2 52.0 H POC ABG pO2 ABG pO2 ABG HCO3 ABG O2 Saturation ABG Base Excess ABG Hemoglobin 10.0 L ABG Oxyhemoglobin ABG Sodium 131.0 L ABG Potassium 3.3 L ABG Chloride 93.0 L ABG Glucose 177 H Oxyhemoglobin Carboxyhemoglobin Sodium Potassium Chloride Carbon Dioxide BUN Creatinine Glucose POC Glucose 227 H Lactic Acid Calcium Magnesium Ferritin Total Bilirubin Direct Bilirubin AST ALT Alkaline Phosphatase Lactate Dehydrogenase C-Reactive Protein Total Protein Albumin Triglycerides Lipase Arterial Blood Glucose 177 H Arterial Blood Ionized Calcium Urine WBC (Auto) Coronavirus (PCR) SARS-CoV-2 IgG Ab Crossmatch 07/05/20 07/05/20 07/05/20 05:18 05:25 05:57 WBC RBC Hgb Hct MCV MCH MCHC RDW Lymph % (Auto) Lymph # (Auto) [place] # (Auto) Baso # (Auto) Seg Neutrophils % Seg Neuts % (Manual) Lymphocytes % (Manual) Nucleated RBC % Seg Neutrophils # Seg Neutrophils # Man Lymphocytes # (Manual) Monocytes # (Manual) Eosinophils # (Manual) PT INR APTT D-Dimer Heparin Anti-Xa Level ABG pH 7.519 H POC ABG pCO2 POC ABG pO2 198.6 H ABG pO2 ABG HCO3 ABG O2 Saturation ABG Base Excess ABG Hemoglobin 10.3 L ABG Oxyhemoglobin 98.7 H ABG Sodium 133.6 L ABG Potassium 3.3 L ABG Chloride 93.0 L ABG Glucose 175 H Oxyhemoglobin Carboxyhemoglobin Sodium Potassium 3.4 L Chloride 92.5 L Carbon Dioxide 36 H BUN Creatinine 0.3 L Glucose 148 H POC Glucose 170 H Lactic Acid Calcium Magnesium Ferritin Total Bilirubin Direct Bilirubin AST ALT Alkaline Phosphatase Lactate Dehydrogenase C-Reactive Protein Total Protein Albumin Triglycerides Lipase Arterial Blood Glucose 175 H Arterial Blood Ionized Calcium Urine WBC (Auto) Coronavirus (PCR) SARS-CoV-2 IgG Ab Crossmatch 07/05/20 07/05/20 07/06/20 11:37 18:39 00:04 WBC RBC Hgb Hct MCV MCH MCHC RDW Lymph % (Auto) Lymph # (Auto) [place] # (Auto) Baso # (Auto) Seg Neutrophils % Seg Neuts % (Manual) Lymphocytes % (Manual) Nucleated RBC % Seg Neutrophils # Seg Neutrophils # Man Lymphocytes # (Manual) Monocytes # (Manual) Eosinophils # (Manual) PT INR APTT D-Dimer Heparin Anti-Xa Level ABG pH POC ABG pCO2 POC ABG pO2 ABG pO2 ABG HCO3 ABG O2 Saturation ABG Base Excess ABG Hemoglobin ABG Oxyhemoglobin ABG Sodium ABG Potassium ABG Chloride ABG Glucose Oxyhemoglobin Carboxyhemoglobin Sodium Potassium Chloride Carbon Dioxide BUN Creatinine Glucose POC Glucose 195 H 200 H 222 H Lactic Acid Calcium Magnesium Ferritin Total Bilirubin Direct Bilirubin AST ALT Alkaline Phosphatase Lactate Dehydrogenase C-Reactive Protein Total Protein Albumin Triglycerides Lipase Arterial Blood Glucose Arterial Blood Ionized Calcium Urine WBC (Auto) Coronavirus (PCR) SARS-CoV-2 IgG Ab Crossmatch 07/06/20 07/06/20 07/06/20 05:25 06:52 06:52 WBC 15.8 H RBC 3.17 L Hgb 10.4 L Hct 31.5 L MCV 99 H MCH 33 H MCHC RDW 17.0 H Lymph % (Auto) Lymph # (Auto) [place] # (Auto) Baso # (Auto) Seg Neutrophils % Seg Neuts % (Manual) Lymphocytes % (Manual) Nucleated RBC % Seg Neutrophils # Seg Neutrophils # Man Lymphocytes # (Manual) Monocytes # (Manual) Eosinophils # (Manual) PT INR APTT D-Dimer Heparin Anti-Xa Level ABG pH POC ABG pCO2 POC ABG pO2 ABG pO2 ABG HCO3 ABG O2 Saturation ABG Base Excess ABG Hemoglobin ABG Oxyhemoglobin ABG Sodium ABG Potassium ABG Chloride ABG Glucose Oxyhemoglobin Carboxyhemoglobin Sodium 135 L Potassium 3.4 L Chloride 91.9 L Carbon Dioxide 38 H BUN Creatinine 0.3 L Glucose 189 H POC Glucose 165 H Lactic Acid Calcium Magnesium Ferritin Total Bilirubin Direct Bilirubin AST ALT Alkaline Phosphatase Lactate Dehydrogenase C-Reactive Protein Total Protein Albumin Triglycerides Lipase Arterial Blood Glucose Arterial Blood Ionized Calcium Urine WBC (Auto) Coronavirus (PCR) SARS-CoV-2 IgG Ab Crossmatch 07/06/20 07/06/20 07/06/20 13:01 18:04 23:08 WBC RBC Hgb Hct MCV MCH MCHC RDW Lymph % (Auto) Lymph # (Auto) [place] # (Auto) Baso # (Auto) Seg Neutrophils % Seg Neuts % (Manual) Lymphocytes % (Manual) Nucleated RBC % Seg Neutrophils # Seg Neutrophils # Man Lymphocytes # (Manual) Monocytes # (Manual) Eosinophils # (Manual) PT INR APTT D-Dimer Heparin Anti-Xa Level ABG pH POC ABG pCO2 POC ABG pO2 ABG pO2 ABG HCO3 ABG O2 Saturation ABG Base Excess ABG Hemoglobin ABG Oxyhemoglobin ABG Sodium ABG Potassium ABG Chloride ABG Glucose Oxyhemoglobin Carboxyhemoglobin Sodium Potassium Chloride Carbon Dioxide BUN Creatinine Glucose POC Glucose 195 H 169 H 173 H Lactic Acid Calcium Magnesium Ferritin Total Bilirubin Direct Bilirubin AST ALT Alkaline Phosphatase Lactate Dehydrogenase C-Reactive Protein Total Protein Albumin Triglycerides Lipase Arterial Blood Glucose Arterial Blood Ionized Calcium Urine WBC (Auto) Coronavirus (PCR) SARS-CoV-2 IgG Ab Crossmatch 07/07/20 07/07/20 07/07/20 05:35 05:35 05:39 WBC 17.6 H RBC 3.16 L Hgb 10.4 L Hct 31.5 L MCV 100 H MCH 33 H MCHC RDW 16.7 H Lymph % (Auto) 11.1 L Lymph # (Auto) [place] # (Auto) 1.0 H Baso # (Auto) Seg Neutrophils % 83.0 H Seg Neuts % (Manual) Lymphocytes % (Manual) Nucleated RBC % Seg Neutrophils # 14.6 H Seg Neutrophils # Man Lymphocytes # (Manual) Monocytes # (Manual) Eosinophils # (Manual) PT INR APTT D-Dimer Heparin Anti-Xa Level ABG pH POC ABG pCO2 POC ABG pO2 ABG pO2 ABG HCO3 ABG O2 Saturation ABG Base Excess ABG Hemoglobin ABG Oxyhemoglobin ABG Sodium ABG Potassium ABG Chloride ABG Glucose Oxyhemoglobin Carboxyhemoglobin Sodium 135 L Potassium 3.4 L Chloride 94.3 L Carbon Dioxide 32 H BUN Creatinine 0.2 L Glucose 240 H POC Glucose 191 H Lactic Acid Calcium Magnesium Ferritin Total Bilirubin Direct Bilirubin AST ALT Alkaline Phosphatase Lactate Dehydrogenase C-Reactive Protein Total Protein Albumin Triglycerides Lipase Arterial Blood Glucose Arterial Blood Ionized Calcium Urine WBC (Auto) Coronavirus (PCR) SARS-CoV-2 IgG Ab Crossmatch 07/07/20 07/07/20 07/07/20 12:08 16:39 23:41 WBC RBC Hgb Hct MCV MCH MCHC RDW Lymph % (Auto) Lymph # (Auto) [place] # (Auto) Baso # (Auto) Seg Neutrophils % Seg Neuts % (Manual) Lymphocytes % (Manual) Nucleated RBC % Seg Neutrophils # Seg Neutrophils # Man Lymphocytes # (Manual) Monocytes # (Manual) Eosinophils # (Manual) PT INR APTT D-Dimer Heparin Anti-Xa Level ABG pH POC ABG pCO2 POC ABG pO2 ABG pO2 ABG HCO3 ABG O2 Saturation ABG Base Excess ABG Hemoglobin ABG Oxyhemoglobin ABG Sodium ABG Potassium ABG Chloride ABG Glucose Oxyhemoglobin Carboxyhemoglobin Sodium Potassium Chloride Carbon Dioxide BUN Creatinine Glucose POC Glucose 248 H 209 H 231 H Lactic Acid Calcium Magnesium Ferritin Total Bilirubin Direct Bilirubin AST ALT Alkaline Phosphatase Lactate Dehydrogenase C-Reactive Protein Total Protein Albumin Triglycerides Lipase Arterial Blood Glucose Arterial Blood Ionized Calcium Urine WBC (Auto) Coronavirus (PCR) SARS-CoV-2 IgG Ab Crossmatch 07/08/20 07/08/20 07/08/20 04:58 04:58 05:38 WBC 21.0 H RBC 2.86 L Hgb 9.2 L Hct 28.6 L MCV 100 H MCH MCHC RDW 16.7 H Lymph % (Auto) Lymph # (Auto) [place] # (Auto) Baso # (Auto) Seg Neutrophils % Seg Neuts % (Manual) 93.0 H Lymphocytes % (Manual) 3.0 L Nucleated RBC % Seg Neutrophils # Seg Neutrophils # Man 19.5 H Lymphocytes # (Manual) 0.6 L Monocytes # (Manual) Eosinophils # (Manual) PT INR APTT D-Dimer Heparin Anti-Xa Level ABG pH POC ABG pCO2 POC ABG pO2 ABG pO2 ABG HCO3 ABG O2 Saturation ABG Base Excess ABG Hemoglobin ABG Oxyhemoglobin ABG Sodium ABG Potassium ABG Chloride ABG Glucose Oxyhemoglobin Carboxyhemoglobin Sodium Potassium 3.0 L Chloride Carbon Dioxide BUN Creatinine 0.2 L Glucose 201 H POC Glucose 161 H Lactic Acid Calcium 7.9 L D Magnesium Ferritin Total Bilirubin Direct Bilirubin AST ALT Alkaline Phosphatase Lactate Dehydrogenase C-Reactive Protein Total Protein Albumin Triglycerides Lipase Arterial Blood Glucose Arterial Blood Ionized Calcium Urine WBC (Auto) Coronavirus (PCR) SARS-CoV-2 IgG Ab Crossmatch 07/08/20 07/08/20 07/08/20 12:19 16:26 Unknown WBC RBC Hgb Hct MCV MCH MCHC RDW Lymph % (Auto) Lymph # (Auto) [place] # (Auto) Baso # (Auto) Seg Neutrophils % Seg Neuts % (Manual) Lymphocytes % (Manual) Nucleated RBC % Seg Neutrophils # Seg Neutrophils # Man Lymphocytes # (Manual) Monocytes # (Manual) Eosinophils # (Manual) PT INR APTT D-Dimer Heparin Anti-Xa Level ABG pH POC ABG pCO2 POC ABG pO2 ABG pO2 75.3 L ABG HCO3 34.3 H ABG O2 Saturation ABG Base Excess 8.7 H ABG Hemoglobin 10.2 L ABG Oxyhemoglobin ABG Sodium ABG Potassium ABG Chloride ABG Glucose Oxyhemoglobin 93.7 L Carboxyhemoglobin Sodium Potassium Chloride Carbon Dioxide BUN Creatinine Glucose POC Glucose 152 H 173 H Lactic Acid Calcium Magnesium Ferritin Total Bilirubin Direct Bilirubin AST ALT Alkaline Phosphatase Lactate Dehydrogenase C-Reactive Protein Total Protein Albumin Triglycerides Lipase Arterial Blood Glucose Arterial Blood Ionized Calcium Urine WBC (Auto) Coronavirus (PCR) SARS-CoV-2 IgG Ab Crossmatch 07/09/20 07/09/20 07/09/20 00:01 06:00 11:55 WBC RBC Hgb Hct MCV MCH MCHC RDW Lymph % (Auto) Lymph # (Auto) [place] # (Auto) Baso # (Auto) Seg Neutrophils % Seg Neuts % (Manual) Lymphocytes % (Manual) Nucleated RBC % Seg Neutrophils # Seg Neutrophils # Man Lymphocytes # (Manual) Monocytes # (Manual) Eosinophils # (Manual) PT INR APTT D-Dimer Heparin Anti-Xa Level ABG pH POC ABG pCO2 POC ABG pO2 ABG pO2 ABG HCO3 ABG O2 Saturation ABG Base Excess ABG Hemoglobin ABG Oxyhemoglobin ABG Sodium ABG Potassium ABG Chloride ABG Glucose Oxyhemoglobin Carboxyhemoglobin Sodium Potassium Chloride Carbon Dioxide BUN Creatinine Glucose POC Glucose 207 H 141 H 228 H Lactic Acid Calcium Magnesium Ferritin Total Bilirubin Direct Bilirubin AST ALT Alkaline Phosphatase Lactate Dehydrogenase C-Reactive Protein Total Protein Albumin Triglycerides Lipase Arterial Blood Glucose Arterial Blood Ionized Calcium Urine WBC (Auto) Coronavirus (PCR) SARS-CoV-2 IgG Ab Crossmatch 07/09/20 07/09/20 16:47 Unknown WBC RBC Hgb Hct MCV MCH MCHC RDW Lymph % (Auto) Lymph # (Auto) [place] # (Auto) Baso # (Auto) Seg Neutrophils % Seg Neuts % (Manual) Lymphocytes % (Manual) Nucleated RBC % Seg Neutrophils # Seg Neutrophils # Man Lymphocytes # (Manual) Monocytes # (Manual) Eosinophils # (Manual) PT INR APTT D-Dimer Heparin Anti-Xa Level ABG pH POC ABG pCO2 POC ABG pO2 ABG pO2 ABG HCO3 ABG O2 Saturation ABG Base Excess ABG Hemoglobin ABG Oxyhemoglobin ABG Sodium ABG Potassium ABG Chloride ABG Glucose Oxyhemoglobin Carboxyhemoglobin Sodium 132 L Potassium Chloride 92.7 L Carbon Dioxide 35 H BUN Creatinine 0.2 L Glucose 234 H POC Glucose 136 H Lactic Acid Calcium Magnesium Ferritin Total Bilirubin Direct Bilirubin AST ALT Alkaline Phosphatase Lactate Dehydrogenase C-Reactive Protein Total Protein Albumin Triglycerides Lipase Arterial Blood Glucose Arterial Blood Ionized Calcium Urine WBC (Auto) Coronavirus (PCR) SARS-CoV-2 IgG Ab Crossmatch Allied health notes reviewed: nursing
[2020-07-10] MEDS: INSULIN LISPRO 100 UNIT/ML VIAL 3 mL SUB-Q SCH ×4 (00:15→18:40)
[2020-07-10] MEDS: dexmedeTOMIDine 1,000 MCG in SODIUM CHLORIDE 0.9% 250ML 250 ML IV SCH ×4 (00:17→16:49)
[2020-07-10] MEDS: NORepinephrine/NS 4 MG-250 ML 4 MG/250 ML BAG IV SCH ×2 (00:17→13:52)
[2020-07-10] MEDS: fentaNYL DRIP Premix 2,000 MCG/100 ML BAG IV SCH ×5 (01:50→20:54)
[2020-07-10] MEDS: methylPREDNISolone Sod Succinate 40 MG/1 ML INJ IV SCH ×2 (05:18→17:01)
[2020-07-10] MEDS: QUEtiapine 100 MG TAB PO SCH ×3 (07:28→20:52)
[2020-07-10] MEDS: QUEtiapine 200 MG TAB PO SCH ×3 (07:28→20:52)
[2020-07-10] MEDS: MIDODRINE 5 MG TAB PO SCH ×3 (07:28→16:49)
[2020-07-10] MEDS: PHENobarbital 32.4 MG TAB PO SCH ×2 (09:31→23:27)
[2020-07-10] MEDS: LANSOPRAZOLE 30 MG SOLUTAB FEEDTUBE SCH (09:31)
[2020-07-10] MEDS: ENOXAPARIN 80 MG/0.8 ML INJ SUB-Q SCH ×3 (09:31→23:27)
[2020-07-10] MEDS: ENOXAPARIN 30 MG/0.3 ML INJ SUB-Q SCH ×3 (09:31→23:30)
[2020-07-10] MEDS: FOLIC ACID 1 MG TAB PO SCH (09:31)
[2020-07-10] MEDS: INSULIN GLARGINE 100 UNITS/ML SUB-Q SCH ×2 (09:31→23:35)
[2020-07-10] MEDS: SENNOSIDES 8.6 MG TAB PO SCH ×2 (09:32→23:27)
[2020-07-10] MEDS: DOCUSATE SODIUM 100 MG/10 ML ORAL LIQD PO SCH ×3 (09:32→23:28)
--- NOTE | 2020-07-10 11:27 | Progress Note ---
Assessment and Plan Assessment and plan: - Acute hypoxemic respiratory failure; Patient intubated and on vent support --Severe COVID-19 bilateral pneumonia Coronavirus protocol: IV steroid therapy, completed remdesivir, isolation precautions, contact precautions, prone positioning while in bed, pulmonary toilet. ID following SARS CoV-2 IgG positive patient is NOT a candidate for COVID convalescent plasma --Severe sepsis/septic shock, due to COVID 19 PNA cont pressors as needed -- Acute kidney injury (SEN) , likely vasomotor nephropathy Resolved, IV fluids, avoid nephrotoxins --Acute on chronic anemia Guaiac test positive GI evaluation PPIs Continue to monitor -- Elevated liver function tests Suspected secondary to alcoholic liver disease. Supportive care, alcohol cessation, patient counseled. --Colonic distention GI evaluation -recommend stool softeners Serial abdominal x-rays Monitor electrolytes and replete -- DVT prophylaxis On therapeutic Lovenox 50 YO Male with Obesity, ETOH Dependence presents to ED for evaluation for shortness of breath, generalized weakness, fatigue, malaise, body aches, decreased exercise tolerance over the past 5 days. EMS was notified and upon arrival the patient was found to be in distress with a pulse oximetry of 76% on room air as well as fever to 103 F. In the ER chest x-ray and was found to have bilateral pneumonia. Patient admitted to medical floor and initiated on pneumonia protocol as well as COVID-19 protocol. Patient reports being diagnosed with coronavirus 2 days ago before admission. 06/16/2020. Patient currently on mechanical ventilation with AC mode rate 30, tidal volume 500, FiO2 70% and PEEP of 16. Continue anticoagulation with Lovenox 110 milligrams subcu every 12 hours. Wean sedation of fentanyl/Versed as needed. Currently with IV steroids of Solu-Medrol 40 mg IV every 12 hours. Patient will likely need tracheostomy per pulmonary recommendations. Continue pressors to maintain MAP > 65. 06/17/2020. Patient currently on mechanical ventilation with AC mode rate 30, tidal volume 500, FiO2 65% and PEEP of 16. Continue anticoagulation with Lovenox 110 milligrams subcu every 12 hours. Wean sedation of fentanyl/Versed as needed. Currently with IV steroids of Solu-Medrol 40 mg IV every 12 hours. Patient will likely need tracheostomy per pulmonary recommendations. 06/18/2020. Patient currently on mechanical ventilation with AC mode rate 30, tidal volume 500, FiO2 70% and PEEP of 16. Continue Lovenox for anticoagulation and fentanyl/Versed for sedation. Wean steroids per pulmonary. CIWA protocol initiated for history of EtOH dependence 06/19/2020. Patient currently on mechanical ventilation with AC mode rate 30, tidal volume 500, FiO2 60% and PEEP of 16. Wean FiO2 as tolerated per protocol. Continue Lovenox for anticoagulation and fentanyl/Versed for sedation. Wean steroids per pulmonary. CIWA protocol initiated for history of EtOH dependence 06/20/2020. Patient currently on mechanical ventilation with AC mode rate 30, tidal volume 500, FiO2 60% and PEEP of 16. Wean FiO2 as tolerated, SBT per protocol. Continue Lovenox for anticoagulation and fentanyl/Versed for sedation. Wean steroids per pulmonary. Continue pressors to maintain MAP > 65 mmHg. Patient remains on ETT. Consider tracheostomy placement once oxygenation is better per pulmonary. CIWA protocol initiated for history of EtOH dependence. 06/21/2020. Patient with a small apical pneumothorax discovered yesterday. General surgery consulted and consider placing chest tube. Follow-up serial chest x-ray patient currently on mechanical ventilation with AC mode rate 30, tidal volume 500, FiO2 60% and PEEP of 16. Wean FiO2 as tolerated, SBT per protocol. Continue Lovenox for anticoagulation and fentanyl/Versed for sedation. Wean steroids per pulmonary. Continue pressors to maintain MAP > 65 mmHg. Patient remains on ETT. Consider tracheostomy placement once oxygenation is better per pulmonary. CIWA protocol initiated for history of EtOH dependence. 06/22. Status post right chest tube placement yesterday. Remains mechanically ventilated on pressors. Examination today shows slightly distended abdomen. KUB ordered. Awaiting stool guaiac. Plan to get a GI evaluation. 06/23. Has colonic distention on the x-ray. Discussed with GI-advised stool softeners for now and close monitoring. No indication for colonic decompression at this time. Guaiac test is positive. No emergent indication for endoscopy at this point as per GI. Continue to monitor hemoglobin. 06/24. Remains intubated. On pressors. GI following for positive guaiac stool a nd anemia, and colonic distention. 06/25. Repeat abdominal xray ordered. Remains on mechanical ventilation. 06/26. Abdominal xray - resolved colonic distension. Mechanically ventilated. 06/27. Plan for trach and PEG. 06/28: Awaiting trach and Peg. S\ome Bm REPORTED, will continue to monitor 06/29: Resume care, patient remains on ventilator support, waiting on trach and PEG placement. BM reported by the RN, continue to monitor. 06/30: Unable to wean off from vent, patient will need trach and PEG. Continue supportive care, tolerating tube feed. Monitor CBC and BMP 07/01: Continue mechanical ventilation, tube feeding as tolerated. Sedation as needed per mechanical ventilation protocol. Waiting on trach and PEG placement. 07/02: Continue current management, tube feeding, monitor CBC and BMP. Need trach and PEG-waiting on scheduling. Pulmonary critical care following. 07/03: wean off vent as tolerated. follow clinically. need trach and PEG 07/04: unable to wean. CT head ordered to assess for any changes but too unstable to do the test. need trach and PEG. 07/05: plan for trach/peg - GS following. off pressor - on midodrine. renal function stable. intubated, but alert and can follow minor commend. discussed with daughter by phone. 07/06/2020; Dr. Márquez discussed with patient's daughter about trach but the daughter needs time to think about it. Patient was intubated and alert, FiO2 40%. 07/07/2020; patient was intubated and alert, FiO2 40%. Patient was diaphoretic, tachycardic, and EKG was done which was abnormal for me. I called incident response consultant Dr Louis saw the EKG and said it is normal EKG, and the findings are abnormal. 07/08/2020; no significant change, patient is intubated and alert. 07/10: Patient continues on current management. Pulmonary recommending trach and PEG awaiting patient's decision on this. Will check intermittent labs The high probability of a clinically significant, sudden or life threatening deterioration of the [respiratory] system(s) required my full and direct attention, intervention and personal management. The aggregate critical care time was [31] minutes. This time is in addition to time spent performing reported procedures but includes the following: [x] Data Review and interpretation [x] Patient assessment and monitoring of vital signs [x] Documentation [x] Medication orders and management History Interval history: PT seen and examined. Remains on full clinical ventilation Hospitalist Physical - Physical exam Narrative exam: VITAL SIGNS: Reviewed. Exam limited due to global pandemic PPE GENERAL: Sedated and intubated HEAD: No signs of head trauma. MOUTH: Oropharynx is normal. NECK: No adenopathy, no JVD. CHEST: Chest with diminished breath sounds bilaterally. No wheezes, rales, or rhonchi. CARDIAC: normal S1 and S2, without murmurs, gallops, or rubs. ABDOMEN: Slightly distended, bowel sounds hypoactive NEUROLOGIC EXAM: Sedated and intubated - Constitutional Vitals: Temp Pulse Resp BP Pulse Ox 98.6 F 102 H 15 114/67 97 07/10/20 08:00 07/10/20 11:15 07/10/20 11:15 07/10/20 11:15 07/10/20 11:15 General appearance: Present: no acute distress, mild distress, well-nourished HEART Score - HEART Score Troponin: Troponin T 0.015 ng/mL (0.00-0.029) 07/07/20 10:00 Results - Labs CBC & Chem 7: 07/08/20 04:58 07/09/20 Unknown Labs: Laboratory Last Values WBC 21.0 K/mm3 (4.5-11.0) H 07/08/20 04:58 RBC 2.86 M/mm3 (3.65-5.03) L 07/08/20 04:58 Hgb 9.2 gm/dl (11.8-15.2) L 07/08/20 04:58 Hct 28.6 % (35.5-45.6) L 07/08/20 04:58 MCV 100 fl (84-94) H 07/08/20 04:58 MCH 32 pg (28-32) 07/08/20 04:58 MCHC 32 % (32-34) 07/08/20 04:58 RDW 16.7 % (13.2-15.2) H 07/08/20 04:58 Plt Count 250 K/mm3 (140-440) 07/08/20 04:58 Lymph % (Auto) 11.1 % (13.4-35.0) L 07/07/20 05:35 [place] % (Auto) 5.6 % (0.0-7.3) 07/07/20 05:35 Eos % (Auto) 0.2 % (0.0-4.3) 07/07/20 05:35 Baso % (Auto) 0.1 % (0.0-1.8) 07/07/20 05:35 Lymph # (Auto) 2.0 K/mm3 (1.2-5.4) 07/07/20 05:35 [place] # (Auto) 1.0 K/mm3 (0.0-0.8) H 07/07/20 05:35 Eos # (Auto) 0.0 K/mm3 (0.0-0.4) 07/07/20 05:35 Baso # (Auto) 0.0 K/mm3 (0.0-0.1) 07/07/20 05:35 Add Manual Diff Complete 07/08/20 04:58 Total Counted 100 07/08/20 04:58 Seg Neutrophils % 83.0 % (40.0-70.0) H 07/07/20 05:35 Seg Neuts % (Manual) 93.0 % (40.0-70.0) H 07/08/20 04:58 Band Neutrophils % 2.0 % 07/01/20 06:41 Lymphocytes % (Manual) 3.0 % (13.4-35.0) L 07/08/20 04:58 Reactive Lymphs % (Man) 0 % 06/15/20 Unknown Monocytes % (Manual) 4.0 % (0.0-7.3) 07/08/20 04:58 Eosinophils % (Manual) 3.0 % (0.0-4.3) 07/01/20 06:41 Basophils % (Manual) 0 % (0.0-1.8) 06/15/20 Unknown Metamyelocytes % 1.0 % 06/28/20 06:35 Myelocytes % 0 % 06/15/20 Unknown Promyelocytes % 0 % 06/15/20 Unknown Blast Cells % 0 % 06/15/20 Unknown Nucleated RBC % Not Reportable 07/08/20 04:58 Seg Neutrophils # 14.6 K/mm3 (1.8-7.7) H 07/07/20 05:35 Seg Neutrophils # Man 19.5 K/mm3 (1.8-7.7) H 07/08/20 04:58 Band Neutrophils # 0.0 K/mm3 07/08/20 04:58 Lymphocytes # (Manual) 0.6 K/mm3 (1.2-5.4) L 07/08/20 04:58 Abs React Lymphs (Man) 0.0 K/mm3 07/08/20 04:58 Monocytes # (Manual) 0.8 K/mm3 (0.0-0.8) 07/08/20 04:58 Eosinophils # (Manual) 0.0 K/mm3 (0.0-0.4) 07/08/20 04:58 Basophils # (Manual) 0.0 K/mm3 (0.0-0.1) 07/08/20 04:58 Metamyelocytes # 0.0 K/mm3 07/08/20 04:58 Myelocytes # 0.0 K/mm3 07/08/20 04:58 Promyelocytes # 0.0 K/mm3 07/08/20 04:58 Blast Cells # 0.0 K/mm3 07/08/20 04:58 WBC Morphology Not Reportable 07/08/20 04:58 Hypersegmented Neuts Not Reportable 07/08/20 04:58 Hyposegmented Neuts Not Reportable 07/08/20 04:58 Hypogranular Neuts Not Reportable 07/08/20 04:58 Smudge Cells Not Reportable 07/08/20 04:58 Toxic Granulation Not Reportable 07/08/20 04:58 Toxic Vacuolation Not Reportable 07/08/20 04:58 Dohle Bodies Not Reportable 07/08/20 04:58 Pelger-Huet Anomaly Not Reportable 07/08/20 04:58 Jason Rods Not Reportable 07/08/20 04:58 Platelet Estimate Consistent w auto 07/08/20 04:58 Clumped Platelets Not Reportable 07/08/20 04:58 Plt Clumps, EDTA Not Reportable 07/08/20 04:58 Large Platelets Not Reportable 07/08/20 04:58 Giant Platelets Not Reportable 07/08/20 04:58 Platelet Satelliting Not Reportable 07/08/20 04:58 Plt Morphology Comment Not Reportable 07/08/20 04:58 RBC Morphology Normal 07/08/20 04:58 Dimorphic RBCs Not Reportable 07/08/20 04:58 Polychromasia Not Reportable 07/08/20 04:58 Hypochromasia Not Reportable 07/08/20 04:58 Poikilocytosis Not Reportable 07/08/20 04:58 Anisocytosis Not Reportable 07/08/20 04:58 Microcytosis Not Reportable 07/08/20 04:58 Macrocytosis Not Reportable 07/08/20 04:58 Spherocytes Not Reportable 07/08/20 04:58 Pappenheimer Bodies Not Reportable 07/08/20 04:58 Sickle Cells Not Reportable 07/08/20 04:58 Target Cells Not Reportable 07/08/20 04:58 Stomatocytes Few 06/14/20 07:15 Tear Drop Cells Not Reportable 07/08/20 04:58 Ovalocytes Not Reportable 07/08/20 04:58 Helmet Cells Not Reportable 07/08/20 04:58 [place] Bodies Not Reportable 07/08/20 04:58 Wilson Rings Not Reportable 07/08/20 04:58 [place]abella Cells Not Reportable 07/08/20 04:58 Bite Cells Not Reportable 07/08/20 04:58 Crenated Cell Not Reportable 07/08/20 04:58 Elliptocytes Not Reportable 07/08/20 04:58 Acanthocytes (Spur) Not Reportable 07/08/20 04:58 Rouleaux Not Reportable 07/08/20 04:58 Hemoglobin C Crystals Not Reportable 07/08/20 04:58 Schistocytes Not Reportable 07/08/20 04:58 Malaria parasites Not Reportable 07/08/20 04:58 Josue Bodies Not Reportable 07/08/20 04:58 Hem Pathologist Commnt No 07/08/20 04:58 PT 11.8 Sec. (12.2-14.9) L 06/22/20 14:29 INR 0.88 (0.87-1.13) 06/22/20 14:29 APTT 23.5 Sec. (24.2-36.6) L 06/22/20 14:29 D-Dimer 1887.82 ng/mlDDU (0-234) H 05/20/20 08:16 Heparin Anti-Xa Level 0.37 U.I./ml (0.3-0.7) 07/02/20 16:08 ABG pH 7.428 pH Units (7.350-7.450) 07/08/20 Unknown POC ABG pCO2 47.1 mmHg (32.0-48.0) 07/05/20 05:25 ABG pCO2 53.1 mm Hg 07/08/20 Unknown POC ABG pO2 198.6 mmHg (83-108) H 07/05/20 05:25 ABG pO2 75.3 mm Hg (80.0-90.0) L 07/08/20 Unknown POC ABG HCO3 37.5 07/05/20 05:25 ABG HCO3 34.3 mmol/L (20.0-26.0) H 07/08/20 Unknown ABG O2 Saturation 96.5 % (95.0-99.0) 07/08/20 Unknown ABG O2 Content 13.5 (0.0-44) 07/08/20 Unknown POC ABG Base Excess 13.2 07/05/20 05:25 ABG Base Excess 8.7 mmol/L (-2.0-3.0) H 07/08/20 Unknown ABG Hemoglobin 10.2 gm/dl (14.0-18.0) L 07/08/20 Unknown ABG Oxyhemoglobin 98.7 (94-98) H 07/05/20 05:25 ABG Carboxyhemoglobin 2.4 % (0.0-5.0) 07/08/20 Unknown ABG Methemoglobin 0.5 % (0.0-1.5) 07/08/20 Unknown ABG Sodium 133.6 mmol/L (136.0-145.0) L 07/05/20 05:25 ABG Potassium 3.3 mmol/L (3.40-4.50) L 07/05/20 05:25 ABG Chloride 93.0 mmol/L (98-107) L 07/05/20 05:25 ABG Glucose 175 mg/dL (65-95) H 07/05/20 05:25 Oxyhemoglobin 93.7 % (95.0-99.0) L 07/08/20 Unknown Carboxyhemoglobin 0.8 (0.5-1.5) 07/05/20 05:25 FiO2 40 % 07/08/20 Unknown Sodium 132 mmol/L (137-145) L 07/09/20 Unknown Potassium 3.6 mmol/L (3.6-5.0) 07/09/20 Unknown Chloride 92.7 mmol/L (98-107) L 07/09/20 Unknown Carbon Dioxide 35 mmol/L (22-30) H 07/09/20 Unknown Anion Gap 8 mmol/L 07/09/20 Unknown BUN 11 mg/dL (9-20) 07/09/20 Unknown Creatinine 0.2 mg/dL (0.8-1.3) L 07/09/20 Unknown Estimated GFR > 60 ml/min 07/09/20 Unknown BUN/Creatinine Ratio 55 % 07/09/20 Unknown Glucose 234 mg/dL (75-100) H 07/09/20 Unknown POC Glucose 221 mg/dL (70-105) H 07/10/20 05:20 Lactic Acid 1.80 mmol/L (0.7-2.0) 05/09/20 Unknown Calcium 8.6 mg/dL (8.4-10.2) 07/09/20 Unknown Phosphorus 3.10 mg/dL (2.5-4.5) 06/15/20 04:00 Magnesium 1.70 mg/dL (1.7-2.3) 06/30/20 07:00 Ferritin 1496.0 ng/mL (30.0-300.0) H 06/14/20 11:50 Total Bilirubin 0.60 mg/dL (0.1-1.2) 06/30/20 07:00 Direct Bilirubin 0.6 mg/dL (0-0.2) H 05/11/20 07:30 Indirect Bilirubin 0.9 mg/dL 05/11/20 07:30 AST 21 units/L (5-40) 06/30/20 07:00 ALT 30 units/L (7-56) 06/30/20 07:00 Alkaline Phosphatase 81 units/L (35-129) 06/30/20 07:00 Lactate Dehydrogenase 705 units/L (91-180) H 05/20/20 08:16 Troponin T 0.015 ng/mL (0.00-0.029) 07/07/20 10:00 C-Reactive Protein 3.10 mg/dL (0.00-1.30) H 05/20/20 08:16 Total Protein 6.3 g/dL (6.3-8.2) 06/30/20 07:00 Albumin 2.8 g/dL (3.9-5) L 06/30/20 07:00 Albumin/Globulin Ratio 0.8 % 06/30/20 07:00 Triglycerides 452 mg/dL (2-149) H 06/30/20 07:00 Lipase 86 units/L (13-60) H 06/29/20 09:36 Procalcitonin 0.94 ng/mL (<0.15) 06/14/20 11:50 Arterial Blood Glucose 175 mg/dL (65-95) H 07/05/20 05:25 Arterial Blood Ionized Calcium 4.7 mg/dL (4.6-5.3) 07/05/20 05:25 Urine Color Fauzia (Yellow) 05/10/20 Unknown Urine Turbidity Clear (Clear) 05/10/20 Unknown Urine pH 5.0 (5.0-7.0) 05/10/20 Unknown Ur Specific [place] 1.019 (1.003-1.030) 05/10/20 Unknown Urine Protein 100 mg/dl mg/dL (Negative) 05/10/20 Unknown Urine Glucose (UA) Neg mg/dL (Negative) 05/10/20 Unknown Urine Ketones Neg mg/dL (Negative) 05/10/20 Unknown Urine Blood Lg (Negative) 05/10/20 Unknown Urine Nitrite Neg (Negative) 05/10/20 Unknown Urine Bilirubin Neg (Negative) 05/10/20 Unknown Urine Urobilinogen 2.0 mg/dL (<2.0) 05/10/20 Unknown Ur Leukocyte Esterase Neg (Negative) 05/10/20 Unknown Urine WBC (Auto) 11.0 /HPF (0.0-6.0) H 05/10/20 Unknown Urine RBC (Auto) 2.0 /HPF (0.0-6.0) 05/10/20 Unknown U Epithel Cells (Auto) 1.0 /HPF (0-13.0) 05/10/20 Unknown Urine Bacteria (Auto) 1+ /HPF (Negative) 05/10/20 Unknown Urine Mucus Few /HPF 05/10/20 Unknown Plasma/Serum Alcohol < 0.01 % (0-0.07) 05/09/20 14:20 Coronavirus (PCR) Negative (Negative) 06/30/20 10:28 SARS-CoV-2 IgG Ab Reactive (NonReactive) A 05/11/20 07:30 Blood Type B POSITIVE 12/14/20 14:18 Antibody Screen Negative 06/21/20 14:18 Crossmatch See Detail 06/21/20 14:18 - Diagnostic Impressions Diagnostic Impressions: Echocardiogram 05/20/20 13:02 Transthoracic Echocardiogram Indication: CHF BP: 97/73 Conclusions *The study quality is technically very difficult and limited. *The left ventricular chamber size, wall thickness and systolic function are within normal limits. There are no wall motion abnormalities observed. Ejection fraction is normal. *The estimated ejection fraction is 60-65%. *The pericardium appears normal. Findings Procedure Info: The study quality is technically difficult. Left Ventricle: The left ventricular chamber size, wall thickness and systolic function are within normal limits. There are no wall motion abnormalities observed. Ejection fraction is normal. The estimated ejection fraction is 60-65%. Abnormal left ventricular diastolic filling is observed, consistent with impaired relaxation. Left Atrium: The left atrium is normal in size with no visual thrombus identified. Right Ventricle: The right ventricle is not well visualized. Right Atrium: The right atrium is not well visualized. Aortic Valve: The aortic valve is trileaflet. The leaflets are thin with normal excursion. There is no aortic stenosis or regurgitation present. Mitral Valve: The mitral valve appears normal in structure and function. Tricuspid Valve: The tricuspid valve appears normal in structure and function. Unable to estimate the right ventricular systolic pressure. Pulmonic Valve: The pulmonic valve is not well visualized. There is no evidence of pulmonic regurgitation. There is no pulmonic stenosis. Pericardium: The pericardium appears normal. Pulmonary Artery: The main pulmonary artery is not well visualized. Venous: The inferior vena cava appears normal in size. Measurements Chambers 2D Name Value Normal Range IVSd (2D) 0.83 cm (0.6 - 1.1) LVPWd (2D) 0.83 cm (0.6 - 1.1) LVIDd (2D) 3.88 cm (3.7 - 5.6) LVIDs (2D) 2.46 cm (2 - 3.8) LV FS (2D) 36.52 % - EF Teichholz (2D) 66.97 % - Ao root diameter (2D) 3.47 cm (2 - 3.7) Volumes/Mass Name Value Normal Range LA ESV SP 4CH (A/L) 22.4 ml - LA ESV SP 2CH (A/L) 22.89 ml - LA ESV BP (A/L) 23.06 ml - LA ESV SP 4CH (MOD) 21.09 ml - LA ESV SP 2CH (MOD) 22.44 ml - Diastolic/Systolic Function Name Value Normal Range MV E-wave Vmax 0.48 m/sec - MV deceleration time 156.3 msec - MV A-wave Vmax 0.59 m/sec - MV E:A ratio 0.81 ratio - Aortic Valve Name Value Normal Range AV Vmax 0.97 m/sec - AV VTI 14.49 cm - AV peak gradient 3.73 mmHg - AV mean gradient 1.89 mmHg - LVOT diameter 2.09 cm - LVOT Vmax 0.72 m/sec - LVOT VTI 10.21 cm - LVOT peak gradient 2.05 mmHg - LVOT mean gradient 1.03 mmHg - SV LVOT 35.17 ml - INNA (continuity Vmax) 2.55 cm2 - INNA (continuity VTI) 2.43 cm2 - Tricuspid Valve Name Value Normal Range TV E-wave Vmax 0.37 m/sec - Pulmonic Valve/Qp:Qs Name Value Normal Range PV Vmax 0.72 m/sec - PV peak gradient 2.06 mmHg - RVOT Vmax 0.85 m/sec - RVOT VTI 9.89 cm - RVOT peak gradient 2.9 mmHg - PV acceleration time 72.31 msec - Cantor/IV: Voiding Method Condom Catheter IV Catheter Type [Right Upper PICC Line arm] IV Catheter Type [Right CVL Internal Jugular] IV Catheter Type [Right Peripheral IV Forearm] IV Catheter Type [Left Forearm Peripheral IV ] IV Catheter Type [Left Wrist] INT / Saline Lock IV Catheter Type [Right Hand] INT / Saline Lock IV Catheter Type [Left Hand] INT / Saline Lock IV Catheter Type [Left Peripheral IV Antecubital] Active Medications - Current Medications Current Medications: Generic Name Dose Route Start Last Admin Trade Name Freq PRN Reason Stop Dose Admin Acetaminophen 650 mg 06/14/20 10:07 06/21/20 20:21 Tylenol FEEDTUBE 650 mg Q4H PRN Administration Pain, Mild (1-3) Alprazolam 0.25 mg 05/20/20 17:53 12/31/20 06:24 Alprazolam 0.25 Mg Tab PO 0.25 mg Q8H PRN Administration Anxiety Lipase/Protease/Amylase 1 each 05/22/20 13:01 Lipase 10,500/Protease 25,000/Amylase 43,750 (Units) Dr Cap FEEDTUBE PRN PRN For Clogged Feeding Tube Bisacodyl 10 mg 06/26/20 22:00 07/10/20 09:32 Bisacodyl 10 Mg Rect Supp VA 10 mg BID DESIRE Administration Docusate Sodium 100 mg 05/28/20 14:00 07/10/20 09:32 Docusate Sodium 100 Mg/10 Ml Oral Liqd PO 100 mg BID DESIRE Administration Enoxaparin Sodium 80 mg 07/07/20 23:00 07/10/20 09:31 Enoxaparin 80 Mg/0.8 Ml Inj SUB-Q 80 mg Q12HR DESIRE Administration Enoxaparin Sodium 30 mg 07/07/20 23:00 07/10/20 09:31 Enoxaparin 30 Mg/0.3 Ml Inj SUB-Q 30 mg Q12HR DESIRE Administration Fentanyl 50 mcg 06/22/20 09:48 07/07/20 12:19 Fentanyl 100 Mcg/2 Ml Inj IV 50 mcg Q10MIN PRN Administration ANALGESIA Folic Acid 1 mg 05/09/20 15:36 07/10/20 09:31 Folic Acid 1 Mg Tab PO 1 mg QDAY DESIRE Administration Hydrophilic Ointment 1 applic 05/21/20 20:33 Lip Therapy Vaseline TP Q2HR PRN Dry Lips Midazolam HCl 100 mg/ Sodium 100 mls @ 2 mls/hr 06/02/20 14:00 07/10/20 08:30 Chloride IV 0 mg/hr TITR DESIRE 0 mls/hr Titration Protocol 2 MG/HR Norepinephrine 4 mg in 250 mls @ 7.5 mls/hr 06/04/20 16:00 07/10/20 07:33 Levophed Drip 4 Mg/Ns 250 Ml IV 4 mcg/min TITR DESIRE 15 mls/hr Titration Protocol 2 MCG/MIN Fentanyl Citrate 2,000 mcg in 100 mls @ 5.32 mls/hr 06/09/20 14:00 07/10/20 08:20 Fentanyl Drip Premix IV 4 mcg/kg/hr TITR DESIRE 21.28 mls/hr Administration Protocol 1 MCG/KG/HR Vasopressin 20 unit/ Sodium 101 mls @ 9.09 mls/hr 06/09/20 18:00 Chloride IV TITR DESIRE Protocol 0.03 UNITS/MIN Dexmedetomidine HCl 1,000 mcg/ 260 mls @ 5.668 mls/hr 07/05/20 08:30 07/10/20 08:22 Sodium Chloride IV Infused TITRATE DESIRE Titration Protocol 0.2 MCG/KG/HR Insulin Glargine 30 units 06/30/20 22:00 07/09/20 22:10 Insulin Glargine 100 Units/Ml SUB-Q 30 units QHS DESIRE Administration Insulin Glargine 5 units 07/05/20 14:00 07/10/20 09:31 Insulin Glargine 100 Units/Ml SUB-Q 5 units DAILY DESIRE Administration Insulin Human Lispro 0 unit 05/29/20 14:00 07/10/20 05:19 Insulin Lispro 100 Unit/Ml Vial 3 Ml SUB-Q 4 unit Q6H DESIRE Administration Protocol Lansoprazole 30 mg 06/28/20 10:00 07/10/20 09:31 Lansoprazole 30 Mg Solutab FEEDTUBE 30 mg QDAY DESIRE Administration Lorazepam 1 mg 07/04/20 01:10 07/09/20 13:34 Lorazepam 2 Mg/Ml Vial IV 1 mg Q1HR PRN Administration agitation Methylprednisolone Sodium Succinate 40 mg 05/20/20 18:00 07/10/20 05:18 Methylprednisolone Sod Succinate 40 Mg/1 Ml Inj IV 40 mg Q12H DESIRE Administration Metoprolol Tartrate 5 mg 07/02/20 17:17 07/08/20 14:38 Metoprolol Tartrate 5 Mg/5 Ml Inj IV 5 mg Q6HR PRN Administration Tachyarrhythmias Midodrine 10 mg 06/30/20 16:00 07/10/20 07:28 Midodrine 5 Mg Tab PO 10 mg TID@0800,1200,1600 [facility] Administration Multi-Ingred Cream/Lotion/Oil/Oint 1 applic 05/21/20 20:33 Mineral Oil/Petrolatum, White Ophth Oint 3.5 Gm OU Q4HR PRN Dry Eye(s) Phenobarbital 32.4 mg 07/04/20 22:00 07/10/20 09:31 Phenobarbital 32.4 Mg Tab PO 32.4 mg BID DESIRE Administration Quetiapine Fumarate 100 mg 07/02/20 23:15 07/10/20 07:28 Quetiapine 100 Mg Tab PO 100 mg TID DESIRE Administration Quetiapine Fumarate 200 mg 07/02/20 23:00 07/10/20 07:28 Quetiapine 200 Mg Tab PO 200 mg TID DESIRE Administration Senna 17.2 mg 06/07/20 10:00 07/10/20 09:32 Sennosides 8.6 Mg Tab PO 17.2 mg BID DESIRE Administration Simple Syrup 15 ml 05/22/20 13:01 Simple Syrup 15 Ml FEEDTUBE PRN PRN Hypoglycemia Simple Syrup 30 ml 05/22/20 13:01 Simple Syrup 15 Ml FEEDTUBE PRN PRN Hypoglycemia Sodium Bicarbonate 325 mg 05/22/20 13:01 Sodium Bicarbonate 325 Mg Tab FEEDTUBE PRN PRN For Clogged Feeding Tube Sodium Chloride 10 ml 05/09/20 22:00 07/10/20 09:31 Sodium Chloride 0.9% 10 Ml Flush Syringe IV 10 ml BID DESIRE Administration Nutrition/Malnutrition Assess - Dietary Evaluation Nutrition/Malnutrition Findings: Nutrition Notes Start: 05/17/20 14:10 Freq: Status: Active Protocol: Document 07/07/20 13:16 (Rec: 07/07/20 13:20 [id number]) Nutrition Notes Initial or Follow up Reassessment Current Diagnosis Sepsis,Respiratory Failure Other Pertinent Diagnosis Bilat pneu, COVID-19 (+), EtOH dependence Current Diet Vital HP at 65 ml/hr (goal rate) Labs/Tests Na 135 K 3.4 BG 240 Pertinent Medications Solumedrol Humalog Levophed Height 6 ft Weight 110 kg [place] Body Weight (kg) 80.90 BMI 32.8 Weight Status Obese Subjective/Other Information FU for TF tolerance. Per RN, pt tolerating TF at goal. Percent of energy/protein needs met: 87%/84% Burn Absent Trauma Absent GI Symptoms None Current % PO Negligible Minimum of two criteria No physical signs of malnutrition #1 Nutrition Diagnosis Inadequate oral intake Diagnosis Progress(for reassessment Continues documentation) Is patient on ventilator? Yes Is Patient Ambulatory and/or Out of Bed No REE-([place]-confined to bed) 2395.176 Kcal/Kg value to use for calculation 16 Approximate Energy Requirements Using 1760 kcal/Kg Calculation Used for Recommendations Kcal/kg Additional Notes Pro needs >2g/kg IBW: at least 162g/day Fluid needs 1ml/kcal Nutrition Intervention Change Diet Order: Continue TF Nutrition Support: Vital HP at 65ml/hr with 50ml water flush q4h. Kcal 1,560 Protein (gm) 136 Fluid (mL) 1,304 Goal #1 TF tolerance Goal #2 TF (at goal rate) to meet at least 75% energy and pro needs Anticipated Discharge Needs: Unable to identify at this time Follow-Up By: 07/14/20 Additional Comments F/U TF tolerance
--- NOTE | 2020-07-10 16:17 | XRay Report ---
CHEST 1 VIEW 07/10/2020 3:07 PM INDICATION / CLINICAL INFORMATION: Chest tube / pneumothorax surveillance. COMPARISON: 07/05/2020 FINDINGS: SUPPORT DEVICES: Stable, satisfactory device positioning. HEART / MEDIASTINUM: Stable. LUNGS / PLEURA: Extensive bilateral pulmonary airspace disease, mildly improved when compared to 06/09. No pneumothorax. ADDITIONAL FINDINGS: No significant additional findings. IMPRESSION: 1. Interval improvement. 2. Stable appearance of the right chest tube without pneumothorax identified. Signer Name: Shahbaz Mann MD Signed: 07/10/2020 4:13 PM Workstation Name: [id number]
[2020-07-10] MEDS: MIDAZOLAM 100 MG in SODIUM CHLORIDE 0.9% 80 ML IV SCH (20:52)
[2020-07-11] MEDS: fentaNYL DRIP Premix 2,000 MCG/100 ML BAG IV SCH ×4 (02:01→20:06)
[2020-07-11] MEDS: dexmedeTOMIDine 1,000 MCG in SODIUM CHLORIDE 0.9% 250ML 250 ML IV SCH ×3 (02:02→21:20)
[2020-07-11] MEDS: INSULIN LISPRO 100 UNIT/ML VIAL 3 mL SUB-Q SCH ×4 (02:39→19:10)
[2020-07-11] MEDS: methylPREDNISolone Sod Succinate 40 MG/1 ML INJ IV SCH ×2 (06:39→21:01)
--- NOTE | 2020-07-11 07:14 | Progress Note ---
Assessment and Plan Assessment and plan: - Acute hypoxemic respiratory failure; Patient intubated and on vent support --Severe COVID-19 bilateral pneumonia Coronavirus protocol: IV steroid therapy, completed remdesivir, isolation precautions, contact precautions, prone positioning while in bed, pulmonary toilet. ID following SARS CoV-2 IgG positive patient is NOT a candidate for COVID convalescent plasma --Severe sepsis/septic shock, due to COVID 19 PNA cont pressors as needed -- Acute kidney injury (SEN) , likely vasomotor nephropathy Resolved, IV fluids, avoid nephrotoxins --Acute on chronic anemia Guaiac test positive GI evaluation PPIs Continue to monitor -- Elevated liver function tests Suspected secondary to alcoholic liver disease. Supportive care, alcohol cessation, patient counseled. --Colonic distention GI evaluation -recommend stool softeners Serial abdominal x-rays Monitor electrolytes and replete -- DVT prophylaxis On therapeutic Lovenox 50 YO Male with Obesity, ETOH Dependence presents to ED for evaluation for shortness of breath, generalized weakness, fatigue, malaise, body aches, decreased exercise tolerance over the past 5 days. EMS was notified and upon arrival the patient was found to be in distress with a pulse oximetry of 76% on room air as well as fever to 103 F. In the ER chest x-ray and was found to have bilateral pneumonia. Patient admitted to medical floor and initiated on pneumonia protocol as well as COVID-19 protocol. Patient reports being diagnosed with coronavirus 2 days ago before admission. 06/16/2020. Patient currently on mechanical ventilation with AC mode rate 30, tidal volume 500, FiO2 70% and PEEP of 16. Continue anticoagulation with Lovenox 110 milligrams subcu every 12 hours. Wean sedation of fentanyl/Versed as needed. Currently with IV steroids of Solu-Medrol 40 mg IV every 12 hours. Patient will likely need tracheostomy per pulmonary recommendations. Continue pressors to maintain MAP > 65. 06/17/2020. Patient currently on mechanical ventilation with AC mode rate 30, tidal volume 500, FiO2 65% and PEEP of 16. Continue anticoagulation with Lovenox 110 milligrams subcu every 12 hours. Wean sedation of fentanyl/Versed as needed. Currently with IV steroids of Solu-Medrol 40 mg IV every 12 hours. Patient will likely need tracheostomy per pulmonary recommendations. 06/18/2020. Patient currently on mechanical ventilation with AC mode rate 30, tidal volume 500, FiO2 70% and PEEP of 16. Continue Lovenox for anticoagulation and fentanyl/Versed for sedation. Wean steroids per pulmonary. CIWA protocol initiated for history of EtOH dependence 06/19/2020. Patient currently on mechanical ventilation with AC mode rate 30, tidal volume 500, FiO2 60% and PEEP of 16. Wean FiO2 as tolerated per protocol. Continue Lovenox for anticoagulation and fentanyl/Versed for sedation. Wean steroids per pulmonary. CIWA protocol initiated for history of EtOH dependence 06/20/2020. Patient currently on mechanical ventilation with AC mode rate 30, tidal volume 500, FiO2 60% and PEEP of 16. Wean FiO2 as tolerated, SBT per protocol. Continue Lovenox for anticoagulation and fentanyl/Versed for sedation. Wean steroids per pulmonary. Continue pressors to maintain MAP > 65 mmHg. Patient remains on ETT. Consider tracheostomy placement once oxygenation is better per pulmonary. CIWA protocol initiated for history of EtOH dependence. 06/21/2020. Patient with a small apical pneumothorax discovered yesterday. General surgery consulted and consider placing chest tube. Follow-up serial chest x-ray patient currently on mechanical ventilation with AC mode rate 30, tidal volume 500, FiO2 60% and PEEP of 16. Wean FiO2 as tolerated, SBT per protocol. Continue Lovenox for anticoagulation and fentanyl/Versed for sedation. Wean steroids per pulmonary. Continue pressors to maintain MAP > 65 mmHg. Patient remains on ETT. Consider tracheostomy placement once oxygenation is better per pulmonary. CIWA protocol initiated for history of EtOH dependence. 06/22. Status post right chest tube placement yesterday. Remains mechanically ventilated on pressors. Examination today shows slightly distended abdomen. KUB ordered. Awaiting stool guaiac. Plan to get a GI evaluation. 06/23. Has colonic distention on the x-ray. Discussed with GI-advised stool softeners for now and close monitoring. No indication for colonic decompression at this time. Guaiac test is positive. No emergent indication for endoscopy at this point as per GI. Continue to monitor hemoglobin. 06/24. Remains intubated. On pressors. GI following for positive guaiac stool a nd anemia, and colonic distention. 06/25. Repeat abdominal xray ordered. Remains on mechanical ventilation. 06/26. Abdominal xray - resolved colonic distension. Mechanically ventilated. 06/27. Plan for trach and PEG. 06/28: Awaiting trach and Peg. S\ome Bm REPORTED, will continue to monitor 06/29: Resume care, patient remains on ventilator support, waiting on trach and PEG placement. BM reported by the RN, continue to monitor. 06/30: Unable to wean off from vent, patient will need trach and PEG. Continue supportive care, tolerating tube feed. Monitor CBC and BMP 07/01: Continue mechanical ventilation, tube feeding as tolerated. Sedation as needed per mechanical ventilation protocol. Waiting on trach and PEG placement. 07/02: Continue current management, tube feeding, monitor CBC and BMP. Need trach and PEG-waiting on scheduling. Pulmonary critical care following. 07/03: wean off vent as tolerated. follow clinically. need trach and PEG 07/04: unable to wean. CT head ordered to assess for any changes but too unstable to do the test. need trach and PEG. 07/05: plan for trach/peg - GS following. off pressor - on midodrine. renal function stable. intubated, but alert and can follow minor commend. discussed with daughter by phone. 07/06/2020; Dr. Márquez discussed with patient's daughter about trach but the daughter needs time to think about it. Patient was intubated and alert, FiO2 40%. 07/07/2020; patient was intubated and alert, FiO2 40%. Patient was diaphoretic, tachycardic, and EKG was done which was abnormal for me. I called manager architectural Dr Louis saw the EKG and said it is normal EKG, and the findings are abnormal. 07/08/2020; no significant change, patient is intubated and alert. 1/2: Patient continues on current management. Pulmonary recommending trach and PEG awaiting patient's decision on this. Will check intermittent labs 1/3: Ordered CT still pending. Patient was agitated at night. Appears to have calmed down. Will repeat labs today. The high probability of a clinically significant, sudden or life threatening deterioration of the [respiratory] system(s) required my full and direct attention, intervention and personal management. The aggregate critical care time was [31] minutes. This time is in addition to time spent performing reported procedures but includes the following: [x] Data Review and interpretation [x] Patient assessment and monitoring of vital signs [x] Documentation [x] Medication orders and management History Interval history: PT seen and examined. Remains on full ventilatory support Hospitalist Physical - Physical exam Narrative exam: VITAL SIGNS: Reviewed. Exam limited due to global pandemic PPE GENERAL: Sedated and intubated HEAD: No signs of head trauma. MOUTH: Oropharynx is normal. NECK: No adenopathy, no JVD. CHEST: Chest with diminished breath sounds bilaterally. No wheezes, rales, or rhonchi. CARDIAC: normal S1 and S2, without murmurs, gallops, or rubs. ABDOMEN: Slightly distended, bowel sounds hypoactive NEUROLOGIC EXAM: Sedated and intubated - Constitutional Vitals: Temp Pulse Resp BP Pulse Ox 97.6 F 105 H 15 108/64 93 07/11/20 03:32 07/11/20 06:30 07/11/20 06:30 07/11/20 06:30 07/11/20 06:30 General appearance: Present: no acute distress, mild distress, well-nourished HEART Score - HEART Score Troponin: Troponin T 0.015 ng/mL (0.00-0.029) 07/07/20 10:00 Results - Labs CBC & Chem 7: 07/08/20 04:58 07/09/20 Unknown Labs: Laboratory Last Values WBC 21.0 K/mm3 (4.5-11.0) H 07/08/20 04:58 RBC 2.86 M/mm3 (3.65-5.03) L 07/08/20 04:58 Hgb 9.2 gm/dl (11.8-15.2) L 07/08/20 04:58 Hct 28.6 % (35.5-45.6) L 07/08/20 04:58 MCV 100 fl (84-94) H 07/08/20 04:58 MCH 32 pg (28-32) 07/08/20 04:58 MCHC 32 % (32-34) 07/08/20 04:58 RDW 16.7 % (13.2-15.2) H 07/08/20 04:58 Plt Count 250 K/mm3 (140-440) 07/08/20 04:58 Lymph % (Auto) 11.1 % (13.4-35.0) L 07/07/20 05:35 [place] % (Auto) 5.6 % (0.0-7.3) 07/07/20 05:35 Eos % (Auto) 0.2 % (0.0-4.3) 07/07/20 05:35 Baso % (Auto) 0.1 % (0.0-1.8) 07/07/20 05:35 Lymph # (Auto) 2.0 K/mm3 (1.2-5.4) 07/07/20 05:35 [place] # (Auto) 1.0 K/mm3 (0.0-0.8) H 07/07/20 05:35 Eos # (Auto) 0.0 K/mm3 (0.0-0.4) 07/07/20 05:35 Baso # (Auto) 0.0 K/mm3 (0.0-0.1) 07/07/20 05:35 Add Manual Diff Complete 07/08/20 04:58 Total Counted 100 07/08/20 04:58 Seg Neutrophils % 83.0 % (40.0-70.0) H 07/07/20 05:35 Seg Neuts % (Manual) 93.0 % (40.0-70.0) H 07/08/20 04:58 Band Neutrophils % 2.0 % 07/01/20 06:41 Lymphocytes % (Manual) 3.0 % (13.4-35.0) L 07/08/20 04:58 Reactive Lymphs % (Man) 0 % 06/15/20 Unknown Monocytes % (Manual) 4.0 % (0.0-7.3) 07/08/20 04:58 Eosinophils % (Manual) 3.0 % (0.0-4.3) 07/01/20 06:41 Basophils % (Manual) 0 % (0.0-1.8) 06/15/20 Unknown Metamyelocytes % 1.0 % 06/28/20 06:35 Myelocytes % 0 % 06/15/20 Unknown Promyelocytes % 0 % 06/15/20 Unknown Blast Cells % 0 % 06/15/20 Unknown Nucleated RBC % Not Reportable 07/08/20 04:58 Seg Neutrophils # 14.6 K/mm3 (1.8-7.7) H 07/07/20 05:35 Seg Neutrophils # Man 19.5 K/mm3 (1.8-7.7) H 07/08/20 04:58 Band Neutrophils # 0.0 K/mm3 07/08/20 04:58 Lymphocytes # (Manual) 0.6 K/mm3 (1.2-5.4) L 07/08/20 04:58 Abs React Lymphs (Man) 0.0 K/mm3 07/08/20 04:58 Monocytes # (Manual) 0.8 K/mm3 (0.0-0.8) 07/08/20 04:58 Eosinophils # (Manual) 0.0 K/mm3 (0.0-0.4) 07/08/20 04:58 Basophils # (Manual) 0.0 K/mm3 (0.0-0.1) 07/08/20 04:58 Metamyelocytes # 0.0 K/mm3 07/08/20 04:58 Myelocytes # 0.0 K/mm3 07/08/20 04:58 Promyelocytes # 0.0 K/mm3 07/08/20 04:58 Blast Cells # 0.0 K/mm3 07/08/20 04:58 WBC Morphology Not Reportable 07/08/20 04:58 Hypersegmented Neuts Not Reportable 07/08/20 04:58 Hyposegmented Neuts Not Reportable 07/08/20 04:58 Hypogranular Neuts Not Reportable 07/08/20 04:58 Smudge Cells Not Reportable 07/08/20 04:58 Toxic Granulation Not Reportable 07/08/20 04:58 Toxic Vacuolation Not Reportable 07/08/20 04:58 Dohle Bodies Not Reportable 07/08/20 04:58 Pelger-Huet Anomaly Not Reportable 07/08/20 04:58 Jason Rods Not Reportable 07/08/20 04:58 Platelet Estimate Consistent w auto 07/08/20 04:58 Clumped Platelets Not Reportable 07/08/20 04:58 Plt Clumps, EDTA Not Reportable 07/08/20 04:58 Large Platelets Not Reportable 07/08/20 04:58 Giant Platelets Not Reportable 07/08/20 04:58 Platelet Satelliting Not Reportable 07/08/20 04:58 Plt Morphology Comment Not Reportable 07/08/20 04:58 RBC Morphology Normal 07/08/20 04:58 Dimorphic RBCs Not Reportable 07/08/20 04:58 Polychromasia Not Reportable 07/08/20 04:58 Hypochromasia Not Reportable 07/08/20 04:58 Poikilocytosis Not Reportable 07/08/20 04:58 Anisocytosis Not Reportable 07/08/20 04:58 Microcytosis Not Reportable 07/08/20 04:58 Macrocytosis Not Reportable 07/08/20 04:58 Spherocytes Not Reportable 07/08/20 04:58 Pappenheimer Bodies Not Reportable 07/08/20 04:58 Sickle Cells Not Reportable 07/08/20 04:58 Target Cells Not Reportable 07/08/20 04:58 Stomatocytes Few 06/14/20 07:15 Tear Drop Cells Not Reportable 07/08/20 04:58 Ovalocytes Not Reportable 07/08/20 04:58 Helmet Cells Not Reportable 07/08/20 04:58 [place] Bodies Not Reportable 07/08/20 04:58 [place] Rings Not Reportable 07/08/20 04:58 Izabella Cells Not Reportable 07/08/20 04:58 Bite Cells Not Reportable 07/08/20 04:58 Crenated Cell Not Reportable 07/08/20 04:58 Elliptocytes Not Reportable 07/08/20 04:58 Acanthocytes (Spur) Not Reportable 07/08/20 04:58 Rouleaux Not Reportable 07/08/20 04:58 Hemoglobin C Crystals Not Reportable 07/08/20 04:58 Schistocytes Not Reportable 07/08/20 04:58 Malaria parasites Not Reportable 07/08/20 04:58 Josue Bodies Not Reportable 07/08/20 04:58 Hem Pathologist Commnt No 07/08/20 04:58 PT 11.8 Sec. (12.2-14.9) L 06/22/20 14:29 INR 0.88 (0.87-1.13) 06/22/20 14:29 APTT 23.5 Sec. (24.2-36.6) L 06/22/20 14:29 D-Dimer 1887.82 ng/mlDDU (0-234) H 05/20/20 08:16 Heparin Anti-Xa Level 0.37 U.I./ml (0.3-0.7) 07/02/20 16:08 ABG pH 7.428 pH Units (7.350-7.450) 07/08/20 Unknown POC ABG pCO2 47.1 mmHg (32.0-48.0) 07/05/20 05:25 ABG pCO2 53.1 mm Hg 07/08/20 Unknown POC ABG pO2 198.6 mmHg (83-108) H 07/05/20 05:25 ABG pO2 75.3 mm Hg (80.0-90.0) L 07/08/20 Unknown POC ABG HCO3 37.5 07/05/20 05:25 ABG HCO3 34.3 mmol/L (20.0-26.0) H 07/08/20 Unknown ABG O2 Saturation 96.5 % (95.0-99.0) 07/08/20 Unknown ABG O2 Content 13.5 (0.0-44) 07/08/20 Unknown POC ABG Base Excess 13.2 07/05/20 05:25 ABG Base Excess 8.7 mmol/L (-2.0-3.0) H 07/08/20 Unknown ABG Hemoglobin 10.2 gm/dl (14.0-18.0) L 07/08/20 Unknown ABG Oxyhemoglobin 98.7 (94-98) H 07/05/20 05:25 ABG Carboxyhemoglobin 2.4 % (0.0-5.0) 07/08/20 Unknown ABG Methemoglobin 0.5 % (0.0-1.5) 07/08/20 Unknown ABG Sodium 133.6 mmol/L (136.0-145.0) L 07/05/20 05:25 ABG Potassium 3.3 mmol/L (3.40-4.50) L 07/05/20 05:25 ABG Chloride 93.0 mmol/L (98-107) L 07/05/20 05:25 ABG Glucose 175 mg/dL (65-95) H 07/05/20 05:25 Oxyhemoglobin 93.7 % (95.0-99.0) L 07/08/20 Unknown Carboxyhemoglobin 0.8 (0.5-1.5) 07/05/20 05:25 FiO2 40 % 07/08/20 Unknown Sodium 132 mmol/L (137-145) L 07/09/20 Unknown Potassium 3.6 mmol/L (3.6-5.0) 07/09/20 Unknown Chloride 92.7 mmol/L (98-107) L 07/09/20 Unknown Carbon Dioxide 35 mmol/L (22-30) H 07/09/20 Unknown Anion Gap 8 mmol/L 07/09/20 Unknown BUN 11 mg/dL (9-20) 07/09/20 Unknown Creatinine 0.2 mg/dL (0.8-1.3) L 07/09/20 Unknown Estimated GFR > 60 ml/min 07/09/20 Unknown BUN/Creatinine Ratio 55 % 07/09/20 Unknown Glucose 234 mg/dL (75-100) H 07/09/20 Unknown POC Glucose 186 mg/dL (70-105) H 07/11/20 05:42 Lactic Acid 1.80 mmol/L (0.7-2.0) 05/09/20 Unknown Calcium 8.6 mg/dL (8.4-10.2) 07/09/20 Unknown Phosphorus 3.10 mg/dL (2.5-4.5) 06/15/20 04:00 Magnesium 1.70 mg/dL (1.7-2.3) 06/30/20 07:00 Ferritin 1496.0 ng/mL (30.0-300.0) H 06/14/20 11:50 Total Bilirubin 0.60 mg/dL (0.1-1.2) 06/30/20 07:00 Direct Bilirubin 0.6 mg/dL (0-0.2) H 05/11/20 07:30 Indirect Bilirubin 0.9 mg/dL 05/11/20 07:30 AST 21 units/L (5-40) 06/30/20 07:00 ALT 30 units/L (7-56) 06/30/20 07:00 Alkaline Phosphatase 81 units/L (35-129) 06/30/20 07:00 Lactate Dehydrogenase 705 units/L (91-180) H 05/20/20 08:16 Troponin T 0.015 ng/mL (0.00-0.029) 07/07/20 10:00 C-Reactive Protein 3.10 mg/dL (0.00-1.30) H 05/20/20 08:16 Total Protein 6.3 g/dL (6.3-8.2) 06/30/20 07:00 Albumin 2.8 g/dL (3.9-5) L 06/30/20 07:00 Albumin/Globulin Ratio 0.8 % 06/30/20 07:00 Triglycerides 452 mg/dL (2-149) H 06/30/20 07:00 Lipase 86 units/L (13-60) H 06/29/20 09:36 Procalcitonin 0.94 ng/mL (<0.15) 06/14/20 11:50 Arterial Blood Glucose 175 mg/dL (65-95) H 07/05/20 05:25 Arterial Blood Ionized Calcium 4.7 mg/dL (4.6-5.3) 07/05/20 05:25 Urine Color Fauzia (Yellow) 05/10/20 Unknown Urine Turbidity Clear (Clear) 05/10/20 Unknown Urine pH 5.0 (5.0-7.0) 05/10/20 Unknown Ur Specific [place] 1.019 (1.003-1.030) 05/10/20 Unknown Urine Protein 100 mg/dl mg/dL (Negative) 05/10/20 Unknown Urine Glucose (UA) Neg mg/dL (Negative) 05/10/20 Unknown Urine Ketones Neg mg/dL (Negative) 05/10/20 Unknown Urine Blood Lg (Negative) 05/10/20 Unknown Urine Nitrite Neg (Negative) 05/10/20 Unknown Urine Bilirubin Neg (Negative) 05/10/20 Unknown Urine Urobilinogen 2.0 mg/dL (<2.0) 05/10/20 Unknown Ur Leukocyte Esterase Neg (Negative) 05/10/20 Unknown Urine WBC (Auto) 11.0 /HPF (0.0-6.0) H 05/10/20 Unknown Urine RBC (Auto) 2.0 /HPF (0.0-6.0) 05/10/20 Unknown U Epithel Cells (Auto) 1.0 /HPF (0-13.0) 05/10/20 Unknown Urine Bacteria (Auto) 1+ /HPF (Negative) 05/10/20 Unknown Urine Mucus Few /HPF 05/10/20 Unknown Plasma/Serum Alcohol < 0.01 % (0-0.07) 05/09/20 14:20 Coronavirus (PCR) Negative (Negative) 06/30/20 10:28 SARS-CoV-2 IgG Ab Reactive (NonReactive) A 05/11/20 07:30 Blood Type B POSITIVE 06/21/20 14:18 Antibody Screen Negative 06/21/20 14:18 Crossmatch See Detail 06/21/20 14:18 - Diagnostic Impressions Diagnostic Impressions: Echocardiogram 05/20/20 13:02 Transthoracic Echocardiogram Indication: CHF BP: 97/73 Conclusions *The study quality is technically very difficult and limited. *The left ventricular chamber size, wall thickness and systolic function are within normal limits. There are no wall motion abnormalities observed. Ejection fraction is normal. *The estimated ejection fraction is 60-65%. *The pericardium appears normal. Findings Procedure Info: The study quality is technically difficult. Left Ventricle: The left ventricular chamber size, wall thickness and systolic function are within normal limits. There are no wall motion abnormalities observed. Ejection fraction is normal. The estimated ejection fraction is 60-65%. Abnormal left ventricular diastolic filling is observed, consistent with impaired relaxation. Left Atrium: The left atrium is normal in size with no visual thrombus identified. Right Ventricle: The right ventricle is not well visualized. Right Atrium: The right atrium is not well visualized. Aortic Valve: The aortic valve is trileaflet. The leaflets are thin with normal excursion. There is no aortic stenosis or regurgitation present. Mitral Valve: The mitral valve appears normal in structure and function. Tricuspid Valve: The tricuspid valve appears normal in structure and function. Unable to estimate the right ventricular systolic pressure. Pulmonic Valve: The pulmonic valve is not well visualized. There is no evidence of pulmonic regurgitation. There is no pulmonic stenosis. Pericardium: The pericardium appears normal. Pulmonary Artery: The main pulmonary artery is not well visualized. Venous: The inferior vena cava appears normal in size. Measurements Chambers 2D Name Value Normal Range IVSd (2D) 0.83 cm (0.6 - 1.1) LVPWd (2D) 0.83 cm (0.6 - 1.1) LVIDd (2D) 3.88 cm (3.7 - 5.6) LVIDs (2D) 2.46 cm (2 - 3.8) LV FS (2D) 36.52 % - EF Teichholz (2D) 66.97 % - Ao root diameter (2D) 3.47 cm (2 - 3.7) Volumes/Mass Name Value Normal Range LA ESV SP 4CH (A/L) 22.4 ml - LA ESV SP 2CH (A/L) 22.89 ml - LA ESV BP (A/L) 23.06 ml - LA ESV SP 4CH (MOD) 21.09 ml - LA ESV SP 2CH (MOD) 22.44 ml - Diastolic/Systolic Function Name Value Normal Range MV E-wave Vmax 0.48 m/sec - MV deceleration time 156.3 msec - MV A-wave Vmax 0.59 m/sec - MV E:A ratio 0.81 ratio - Aortic Valve Name Value Normal Range AV Vmax 0.97 m/sec - AV VTI 14.49 cm - AV peak gradient 3.73 mmHg - AV mean gradient 1.89 mmHg - LVOT diameter 2.09 cm - LVOT Vmax 0.72 m/sec - LVOT VTI 10.21 cm - LVOT peak gradient 2.05 mmHg - LVOT mean gradient 1.03 mmHg - SV LVOT 35.17 ml - INNA (continuity Vmax) 2.55 cm2 - INNA (continuity VTI) 2.43 cm2 - Tricuspid Valve Name Value Normal Range TV E-wave Vmax 0.37 m/sec - Pulmonic Valve/Qp:Qs Name Value Normal Range PV Vmax 0.72 m/sec - PV peak gradient 2.06 mmHg - RVOT Vmax 0.85 m/sec - RVOT VTI 9.89 cm - RVOT peak gradient 2.9 mmHg - PV acceleration time 72.31 msec - Cantor/IV: Voiding Method Condom Catheter IV Catheter Type [Right Upper PICC Line arm] IV Catheter Type [Right CVL Internal Jugular] IV Catheter Type [Right Peripheral IV Forearm] IV Catheter Type [Left Forearm Peripheral IV ] IV Catheter Type [Left Wrist] INT / Saline Lock IV Catheter Type [Right Hand] INT / Saline Lock IV Catheter Type [Left Hand] INT / Saline Lock IV Catheter Type [Left Peripheral IV Antecubital] Active Medications - Current Medications Current Medications: Generic Name Dose Route Start Last Admin Trade Name Freq PRN Reason Stop Dose Admin Acetaminophen 650 mg 06/14/20 10:07 06/21/20 20:21 Tylenol FEEDTUBE 650 mg Q4H PRN Administration Pain, Mild (1-3) Alprazolam 0.25 mg 05/20/20 17:53 07/08/20 06:24 Alprazolam 0.25 Mg Tab PO 0.25 mg Q8H PRN Administration Anxiety Lipase/Protease/Amylase 1 each 05/22/20 13:01 Lipase 10,500/Protease 25,000/Amylase 43,750 (Units) Dr Cap FEEDTUBE PRN PRN For Clogged Feeding Tube Bisacodyl 10 mg 06/26/20 22:00 07/10/20 23:30 Bisacodyl 10 Mg Rect Supp OK 10 mg BID DESIRE Administration Docusate Sodium 100 mg 05/28/20 14:00 07/10/20 23:28 Docusate Sodium 100 Mg/10 Ml Oral Liqd PO 100 mg BID DESIRE Administration Enoxaparin Sodium 80 mg 07/07/20 23:00 07/10/20 23:27 Enoxaparin 80 Mg/0.8 Ml Inj SUB-Q 80 mg Q12HR DESIRE Administration Enoxaparin Sodium 30 mg 07/07/20 23:00 07/10/20 23:30 Enoxaparin 30 Mg/0.3 Ml Inj SUB-Q 30 mg Q12HR DESIRE Administration Fentanyl 50 mcg 06/22/20 09:48 07/07/20 12:19 Fentanyl 100 Mcg/2 Ml Inj IV 50 mcg Q10MIN PRN Administration ANALGESIA Folic Acid 1 mg 05/09/20 15:36 07/10/20 09:31 Folic Acid 1 Mg Tab PO 1 mg QDAY DESIRE Administration Hydrophilic Ointment 1 applic 05/21/20 20:33 Lip Therapy Vaseline TP Q2HR PRN Dry Lips Midazolam HCl 100 mg/ Sodium 100 mls @ 2 mls/hr 06/02/20 14:00 07/10/20 20:52 Chloride IV 1 mg/hr TITR DESIRE 1 mls/hr Administration Protocol 2 MG/HR Norepinephrine 4 mg in 250 mls @ 7.5 mls/hr 06/04/20 16:00 07/10/20 23:52 Levophed Drip 4 Mg/Ns 250 Ml IV 2 mcg/min TITR DESIRE 7.5 mls/hr Titration Protocol 2 MCG/MIN Fentanyl Citrate 2,000 mcg in 100 mls @ 5.32 mls/hr 06/09/20 14:00 07/11/20 02:38 Fentanyl Drip Premix IV 3 mcg/kg/hr TITR DESIRE 15.96 mls/hr Titration Protocol 1 MCG/KG/HR Vasopressin 20 unit/ Sodium 101 mls @ 9.09 mls/hr 06/09/20 18:00 Chloride IV TITR DESIRE Protocol 0.03 UNITS/MIN Dexmedetomidine HCl 1,000 mcg/ 260 mls @ 5.668 mls/hr 07/05/20 08:30 07/11/20 02:02 Sodium Chloride IV 1.1 mcg/kg/hr TITRATE DESIRE 31.174 mls/hr Administration Protocol 0.2 MCG/KG/HR Insulin Glargine 30 units 06/30/20 22:00 07/10/20 23:35 Insulin Glargine 100 Units/Ml SUB-Q 30 units QHS [facility] Administration Insulin Glargine 5 units 07/05/20 14:00 07/10/20 09:31 Insulin Glargine 100 Units/Ml SUB-Q 5 units DAILY [facility] Administration Insulin Human Lispro 0 unit 05/29/20 14:00 07/11/20 06:42 Insulin Lispro 100 Unit/Ml Vial 3 Ml SUB-Q 3 unit Q6H [facility] Administration Protocol Lansoprazole 30 mg 06/28/20 10:00 07/10/20 09:31 Lansoprazole 30 Mg Solutab FEEDTUBE 30 mg QDAY [facility] Administration Lorazepam 1 mg 07/04/20 01:10 07/09/20 13:34 Lorazepam 2 Mg/Ml Vial IV 1 mg Q1HR PRN Administration agitation Methylprednisolone Sodium Succinate 40 mg 05/20/20 18:00 07/11/20 06:39 Methylprednisolone Sod Succinate 40 Mg/1 Ml Inj IV Not Given Q12H [facility] Metoprolol Tartrate 5 mg 07/02/20 17:17 07/08/20 14:38 Metoprolol Tartrate 5 Mg/5 Ml Inj IV 5 mg Q6HR PRN Administration Tachyarrhythmias Midodrine 10 mg 06/30/20 16:00 07/10/20 16:49 Midodrine 5 Mg Tab PO 10 mg TID@0800,1200,1600 [facility] Administration Multi-Ingred Cream/Lotion/Oil/Oint 1 applic 05/21/20 20:33 Mineral Oil/Petrolatum, White Ophth Oint 3.5 Gm OU Q4HR PRN Dry Eye(s) Phenobarbital 32.4 mg 07/04/20 22:00 07/10/20 23:27 Phenobarbital 32.4 Mg Tab PO 32.4 mg BID DESIRE Administration Quetiapine Fumarate 100 mg 07/02/20 23:15 07/10/20 20:52 Quetiapine 100 Mg Tab PO 100 mg TID DESIRE Administration Quetiapine Fumarate 200 mg 07/02/20 23:00 07/10/20 20:52 Quetiapine 200 Mg Tab PO 200 mg TID DESIRE Administration Senna 17.2 mg 06/07/20 10:00 07/10/20 23:27 Sennosides 8.6 Mg Tab PO 17.2 mg BID DESIRE Administration Simple Syrup 15 ml 05/22/20 13:01 Simple Syrup 15 Ml FEEDTUBE PRN PRN Hypoglycemia Simple Syrup 30 ml 05/22/20 13:01 Simple Syrup 15 Ml FEEDTUBE PRN PRN Hypoglycemia Sodium Bicarbonate 325 mg 05/22/20 13:01 Sodium Bicarbonate 325 Mg Tab FEEDTUBE PRN PRN For Clogged Feeding Tube Sodium Chloride 10 ml 05/09/20 22:00 07/11/20 04:23 Sodium Chloride 0.9% 10 Ml Flush Syringe IV 10 ml BID DESIRE Administration Nutrition/Malnutrition Assess - Dietary Evaluation Nutrition/Malnutrition Findings: Nutrition Notes Start: 05/17/20 14:10 Freq: Status: Active Protocol: Document 07/07/20 13:16 (Rec: 07/07/20 13:20 [id number]) Nutrition Notes Initial or Follow up Reassessment Current Diagnosis Sepsis,Respiratory Failure Other Pertinent Diagnosis Bilat pneu, COVID-19 (+), EtOH dependence Current Diet Vital HP at 65 ml/hr (goal rate) Labs/Tests Na 135 K 3.4 BG 240 Pertinent Medications Solumedrol Humalog Levophed Height 6 ft Weight 110 kg [place] Body Weight (kg) 80.90 BMI 32.8 Weight Status Obese Subjective/Other Information FU for TF tolerance. Per RN, pt tolerating TF at goal. Percent of energy/protein needs met: 87%/84% Burn Absent Trauma Absent GI Symptoms None Current % PO Negligible Minimum of two criteria No physical signs of malnutrition #1 Nutrition Diagnosis Inadequate oral intake Diagnosis Progress(for reassessment Continues documentation) Is patient on ventilator? Yes Is Patient Ambulatory and/or Out of Bed No [facility]EE[facility] 2395.176 Kcal/Kg value to use for calculation 16 Approximate Energy Requirements Using 1760 kcal/Kg Calculation Used for Recommendations Kcal/kg Additional Notes Pro needs >2g/kg IBW: at least 162g/day Fluid needs 1ml/kcal Nutrition Intervention Change Diet Order: Continue TF Nutrition Support: Vital HP at 65ml/hr with 50ml water flush q4h. Kcal 1,560 Protein (gm) 136 Fluid (mL) 1,304 Goal #1 TF tolerance Goal #2 TF (at goal rate) to meet at least 75% energy and pro needs Anticipated Discharge Needs: Unable to identify at this time Follow-Up By: 07/14/20 Additional Comments F/U TF tolerance
[2020-07-11 08:29] LABS: Basophils % (Auto) 0.2 % (0.0-1.8); Eosinophils % (Auto) 0.3 % (0.0-4.3); Hematocrit 31.2 % (35.5-45.6); Hemoglobin 10.2 gm/dl (11.8-15.2); Lymphocytes # (Auto) 2.1 K/mm3 (1.2-5.4); Lymphocytes % (Auto) 17.5 % (13.4-35.0); Mean Corpuscular HGB Conc 33 % (32-34); Mean Corpuscular Volume 100 fl (84-94); Monocytes # (Auto) 1.1 K/mm3 (0.0-0.8); Monocytes % (Auto) 9.3 % (0.0-7.3); Platelet Count 296 K/mm3 (140-440); Red Blood Count 3.13 M/mm3 (3.65-5.03); Red Cell Distribution Width 16.4 % (13.2-15.2)
[2020-07-11 08:32] LABS: Blood Urea Nitrogen 14 mg/dL (9-20); Calcium 9.2 mg/dL (8.4-10.2); Hemolysis Index 0
[2020-07-11 08:39] LABS: BUN/Creatinine Ratio 70
[2020-07-11] MEDS: SENNOSIDES 8.6 MG TAB PO SCH ×2 (10:23→22:30)
[2020-07-11] MEDS: FOLIC ACID 1 MG TAB PO SCH (10:24)
[2020-07-11] MEDS: MIDODRINE 5 MG TAB PO SCH ×3 (10:24→17:49)
[2020-07-11] MEDS: QUEtiapine 100 MG TAB PO SCH ×3 (10:24→21:01)
[2020-07-11] MEDS: QUEtiapine 200 MG TAB PO SCH ×3 (10:24→21:01)
[2020-07-11] MEDS: ENOXAPARIN 30 MG/0.3 ML INJ SUB-Q SCH ×2 (10:25→21:01)
[2020-07-11] MEDS: LANSOPRAZOLE 30 MG SOLUTAB FEEDTUBE SCH (10:25)
[2020-07-11] MEDS: ENOXAPARIN 80 MG/0.8 ML INJ SUB-Q SCH ×2 (10:25→21:02)
[2020-07-11] MEDS: DOCUSATE SODIUM 100 MG/10 ML ORAL LIQD PO SCH ×2 (10:25→21:00)
[2020-07-11] MEDS: PHENobarbital 32.4 MG TAB PO SCH ×2 (10:25→21:02)
[2020-07-11] MEDS: INSULIN GLARGINE 100 UNITS/ML SUB-Q SCH ×2 (12:22→21:05)
--- NOTE | 2020-07-11 16:38 | Progress Note ---
Assessment and Plan Acute hypoxemic respiratory failure due to COVID-19 Severe Sepsis Bilateral pneumonia Acute kidney injury (SEN) with acute tubular necrosis (ATN) Alcohol dependence Elevated liver function tests (Patient appears alert and follows simple commands albeit on sedation. I again explained to him the risk of extubation as he is not meeting criteria; i again strongly recommended he get a tracheostomy. He nodded to indicate he is still thinking about it) - toleratying SBT today; will get5 ABG to assess ventilation after 2 hours - still recommend a tracheostomy as he remains on vasopressors and desaturates easily and with significant pneumonic infiltrate (Perhaps fibrotic element also) - continue to wean Levophed for target MAP > 65 mmHg - prn CXR's re: chest tube surveillance - continue care as below otherwise; - awaiting tracheostomy (COVID repeat negative) - continue to wean supplemental oxygen for target O2 sat's > 92% acutely - resume Daily SAT's and SBT assessment as tolerated - continue Seroquel at 300 mg po tid - continue Precedex - prn 12 lead EKG to monitor QT - continue midodrine re: hypotension - keep peep at 8 - continue bid protonix - continue bowel regimen - metoprolol 5 mg IV q6h prn pulse > 130/min - tracheostomy placement once oxygenation better / more hemodynamically stable - he will need a tracheostomy once numbers better - VAP bundle addressed - continue lung protective strategies - continue bronchodilators with pulmonary hygiene per RT - wean per pulmonary driven protocols otherwise - accuchecks with glycemic control per SSI (While critically ill target blood glucose of 140-180 mg/dL; avoid hypoglycemia) - sedation prn for target RASS -1 to -2 - continue enteral nutritional support at goal rate as tolerated - continue airborne and contact isolation - follow repeat COVID-19 testing - continue Zinc & Vit C supplementaion - continue systemic steroids for Asthma / severe COVID infection - Prone positioning as tolerated - continue empiric full dose anticoagulation re: elevated d-dimers / hypercoagulable state - NOT a candidate for COVID convalescent plasma - continue systemic steroids X >/= 10 days - completed remdesivir dosing (total 5 days) - empiric AB's coverage per ID rec's - accuchecks with glycemic control per SSI (While critically ill target blood glucose of 140-180 mg/dL; avoid hypoglycemia) - avoid nephrotoxins, renally dose all medications - continue to avoid benzodiazepine's, reduce the possibility of delirium - continue wound care per RN / WCN - prn analgesia per CPOT score - Maintenance of sleep-wake cycle, avoid delirium - continue to avoid benzodiazepine's, reduce the possibility of delirium - aspiration precautions - G.I. & VTE prophylaxis - PT/OT/ROM exercises - continue mobility protocols for pressure ulcer prophylaxis - Monitor hemodynamics closely - continue other care per attending / other consultants - discharge planning ongoing concurrently .... Re-evaluate in am & prn CONDITION: CRITICAL PROGNOSIS: GUARDED CODE STATUS: FULL CODE The high probability of a clinically significant, sudden or life-threatening deterioration of the [respiratory, cardiovascular, hematologic & neurologic] system(s) required my full and direct attention, intervention and personal management. The aggregate critical care time was [40] minutes without overlap. Time includes spent on; [x] Data Review and interpretation [x] Patient assessment and monitoring of vital signs [x] Documentation [x] Medication orders and management Subjective Date of service: 07/11/20 Principal diagnosis: Ac hypoxemic resp failure; COVID-19; Severe Sepsis; Shaggy PNA; Alcohol Abuse Interval history: Patient is seen today for: Acute hypoxemic respiratory failure due to COVID-19; Severe Sepsis; Bilateral pneumonia; Alcohol dependence; Elevated liver function tests Seen and examined at bedside; 24hour events reviewed; nursing and respiratory care staff consulted; no adverse overnight events reported to me; resting in bed; remains on MVS; just placed on SBT and so far tolerating well; he followed my prompts adequately including 2-3 step processes and seems to state he is still thinking about whether he wants a tracheostomy tube Objective Vital Signs - 12hr 07/11/20 07/11/20 07/11/20 04:30 04:45 05:00 Temperature Pulse Rate 95 H 106 H 109 H Respiratory 14 21 22 Rate Blood Pressure 100/56 145/77 145/84 O2 Sat by Pulse 100 97 94 Oximetry 07/11/20 07/11/20 07/11/20 05:15 05:30 05:45 Temperature Pulse Rate 113 H 111 H 104 H Respiratory 26 H 23 26 H Rate Blood Pressure 140/75 128/70 128/76 O2 Sat by Pulse 95 91 86 Oximetry 07/11/20 07/11/20 07/11/20 06:00 06:15 06:30 Temperature Pulse Rate 107 H 120 H 105 H Respiratory 18 18 15 Rate Blood Pressure 128/76 106/82 108/64 O2 Sat by Pulse 93 91 93 Oximetry 07/11/20 07/11/20 07/11/20 08:27 12:00 12:46 Temperature 98.3 F Pulse Rate 105 H 120 H Respiratory Rate Blood Pressure 124/76 123/81 O2 Sat by Pulse 97 100 Oximetry 07/11/20 14:54 Temperature Pulse Rate 96 H Respiratory Rate Blood Pressure 96/64 O2 Sat by Pulse 96 Oximetry Constitutional: no acute distress, other (middle aged obese male with mildly increased respiratory effort at rest on MVS) Eyes: non-icteric ENT: oropharynx moist, other (ETT 24 cm CHILO) Neck: supple, no JVD Effort: mildly labored Ascultation: Bilateral: diminished breath sounds, rhonchi (scant), other (right chest tube) Percussion: Bilateral: not dull Cardiovascular: regular rate and rhythm, other (No R/M) Gastrointestinal: normoactive bowel sounds, soft, non-tender, other (distended and firm) Integumentary: normal Extremities: no cyanosis, no edema, pulses normal, no ischemia or petechiae Neurologic: non-focal exam (non focal grossly; weak), pupils equal and round, CN II-XII normal Psychiatric: mood appropriate, affect normal CBC and BMP: 07/11/20 08:13 07/11/20 08:13 ABG, PT/INR, D-dimer: ABG ABG pH 7.428 pH Units (7.350-7.450) 07/08/20 Unknown POC ABG pCO2 47.1 mmHg (32.0-48.0) 07/05/20 05:25 ABG pCO2 53.1 mm Hg 07/08/20 Unknown POC ABG pO2 198.6 mmHg (83-108) H 07/05/20 05:25 ABG pO2 75.3 mm Hg (80.0-90.0) L 07/08/20 Unknown POC ABG HCO3 37.5 07/05/20 05:25 ABG O2 Saturation 96.5 % (95.0-99.0) 07/08/20 Unknown PT/INR, D-dimer PT 11.8 Sec. (12.2-14.9) L 06/22/20 14:29 INR 0.88 (0.87-1.13) 06/22/20 14:29 D-Dimer 1887.82 ng/mlDDU (0-234) H 05/20/20 08:16 Abnormal lab findings: Abnormal Labs 05/09/20 05/09/20 05/09/20 12:59 12:59 12:59 WBC 11.8 H RBC Hgb Hct MCV 96 H MCH 34 H MCHC 35 H RDW Lymph % (Auto) 6.9 L [place] % (Auto) Lymph # (Auto) 0.8 L [place] # (Auto) Baso # (Auto) Seg Neutrophils % 87.5 H Seg Neuts % (Manual) Lymphocytes % (Manual) Nucleated RBC % Seg Neutrophils # 10.3 H Seg Neutrophils # Man Lymphocytes # (Manual) Monocytes # (Manual) Eosinophils # (Manual) PT INR APTT D-Dimer Heparin Anti-Xa Level ABG pH POC ABG pCO2 POC ABG pO2 ABG pO2 ABG HCO3 ABG O2 Saturation ABG Base Excess ABG Hemoglobin ABG Oxyhemoglobin ABG Sodium ABG Potassium ABG Chloride ABG Glucose Oxyhemoglobin Carboxyhemoglobin Sodium 130 L Potassium 3.5 L Chloride 86.4 L Carbon Dioxide BUN 33 H Creatinine 2.3 H Glucose 156 H POC Glucose Lactic Acid Calcium Magnesium Ferritin Total Bilirubin 3.40 H Direct Bilirubin 1.7 H AST 385 H ALT 134 H Alkaline Phosphatase Lactate Dehydrogenase C-Reactive Protein Total Protein Albumin 3.0 L Triglycerides Lipase Arterial Blood Glucose Arterial Blood Ionized Calcium Urine WBC (Auto) Coronavirus (PCR) SARS-CoV-2 IgG Ab Crossmatch 05/09/20 05/09/20 05/09/20 12:59 12:59 12:59 WBC RBC Hgb Hct MCV MCH MCHC RDW Lymph % (Auto) [place] % (Auto) Lymph # (Auto) [place] # (Auto) Baso # (Auto) Seg Neutrophils % Seg Neuts % (Manual) Lymphocytes % (Manual) Nucleated RBC % Seg Neutrophils # Seg Neutrophils # Man Lymphocytes # (Manual) Monocytes # (Manual) Eosinophils # (Manual) PT INR APTT D-Dimer 3242.51 H Heparin Anti-Xa Level ABG pH POC ABG pCO2 POC ABG pO2 ABG pO2 ABG HCO3 ABG O2 Saturation ABG Base Excess ABG Hemoglobin ABG Oxyhemoglobin ABG Sodium ABG Potassium ABG Chloride ABG Glucose Oxyhemoglobin Carboxyhemoglobin Sodium Potassium Chloride Carbon Dioxide BUN Creatinine Glucose 158 H POC Glucose Lactic Acid 3.50 H* Calcium Magnesium Ferritin Total Bilirubin Direct Bilirubin AST ALT Alkaline Phosphatase Lactate Dehydrogenase 2166 H C-Reactive Protein 39.00 H Total Protein Albumin Triglycerides Lipase Arterial Blood Glucose Arterial Blood Ionized Calcium Urine WBC (Auto) Coronavirus (PCR) SARS-CoV-2 IgG Ab Crossmatch 05/09/20 05/09/20 05/09/20 12:59 14:20 14:20 WBC RBC Hgb Hct MCV MCH MCHC RDW Lymph % (Auto) [place] % (Auto) Lymph # (Auto) [place] # (Auto) Baso # (Auto) Seg Neutrophils % Seg Neuts % (Manual) Lymphocytes % (Manual) Nucleated RBC % Seg Neutrophils # Seg Neutrophils # Man Lymphocytes # (Manual) Monocytes # (Manual) Eosinophils # (Manual) PT INR APTT D-Dimer 2861.78 H Heparin Anti-Xa Level ABG pH POC ABG pCO2 POC ABG pO2 ABG pO2 ABG HCO3 ABG O2 Saturation ABG Base Excess ABG Hemoglobin ABG Oxyhemoglobin ABG Sodium ABG Potassium ABG Chloride ABG Glucose Oxyhemoglobin Carboxyhemoglobin Sodium Potassium Chloride Carbon Dioxide BUN Creatinine Glucose POC Glucose Lactic Acid 2.20 H* Calcium Magnesium Ferritin 71970.0 H Total Bilirubin Direct Bilirubin AST ALT Alkaline Phosphatase Lactate Dehydrogenase C-Reactive Protein Total Protein Albumin Triglycerides Lipase Arterial Blood Glucose Arterial Blood Ionized Calcium Urine WBC (Auto) Coronavirus (PCR) SARS-CoV-2 IgG Ab Crossmatch 05/09/20 05/09/20 05/09/20 14:20 14:20 15:56 WBC RBC Hgb Hct MCV MCH MCHC RDW Lymph % (Auto) [place] % (Auto) Lymph # (Auto) [place] # (Auto) Baso # (Auto) Seg Neutrophils % Seg Neuts % (Manual) Lymphocytes % (Manual) Nucleated RBC % Seg Neutrophils # Seg Neutrophils # Man Lymphocytes # (Manual) Monocytes # (Manual) Eosinophils # (Manual) PT INR APTT D-Dimer Heparin Anti-Xa Level ABG pH POC ABG pCO2 POC ABG pO2 57.3 L ABG pO2 ABG HCO3 ABG O2 Saturation ABG Base Excess ABG Hemoglobin ABG Oxyhemoglobin 86.3 L ABG Sodium 129.9 L ABG Potassium ABG Chloride ABG Glucose 146 H Oxyhemoglobin Carboxyhemoglobin Sodium Potassium Chloride Carbon Dioxide BUN Creatinine Glucose 143 H POC Glucose Lactic Acid Calcium Magnesium Ferritin 70376.0 H Total Bilirubin Direct Bilirubin AST ALT Alkaline Phosphatase Lactate Dehydrogenase 1953 H C-Reactive Protein 33.50 H Total Protein Albumin Triglycerides Lipase Arterial Blood Glucose 146 H Arterial Blood Ionized Calcium 3.9 L Urine WBC (Auto) Coronavirus (PCR) SARS-CoV-2 IgG Ab Crossmatch 05/10/20 05/10/20 05/10/20 10:32 10:32 18:50 WBC 15.4 H RBC Hgb Hct MCV 97 H MCH 33 H MCHC RDW 13.1 L Lymph % (Auto) [place] % (Auto) Lymph # (Auto) [place] # (Auto) Baso # (Auto) Seg Neutrophils % Seg Neuts % (Manual) 89.0 H Lymphocytes % (Manual) 8.0 L Nucleated RBC % Seg Neutrophils # Seg Neutrophils # Man 13.7 H Lymphocytes # (Manual) Monocytes # (Manual) Eosinophils # (Manual) PT INR APTT D-Dimer Heparin Anti-Xa Level ABG pH POC ABG pCO2 POC ABG pO2 ABG pO2 ABG HCO3 ABG O2 Saturation ABG Base Excess ABG Hemoglobin ABG Oxyhemoglobin ABG Sodium ABG Potassium ABG Chloride ABG Glucose Oxyhemoglobin Carboxyhemoglobin Sodium 136 L Potassium Chloride 97.4 L Carbon Dioxide BUN 37 H Creatinine 1.7 H Glucose 209 H POC Glucose Lactic Acid Calcium Magnesium Ferritin > 2000.0 H Total Bilirubin Direct Bilirubin AST ALT Alkaline Phosphatase Lactate Dehydrogenase C-Reactive Protein Total Protein Albumin Triglycerides Lipase Arterial Blood Glucose Arterial Blood Ionized Calcium Urine WBC (Auto) Coronavirus (PCR) SARS-CoV-2 IgG Ab Crossmatch 05/10/20 05/10/20 05/10/20 18:50 19:00 Unknown WBC RBC Hgb Hct MCV MCH MCHC RDW Lymph % (Auto) [place] % (Auto) Lymph # (Auto) [place] # (Auto) Baso # (Auto) Seg Neutrophils % Seg Neuts % (Manual) Lymphocytes % (Manual) Nucleated RBC % Seg Neutrophils # Seg Neutrophils # Man Lymphocytes # (Manual) Monocytes # (Manual) Eosinophils # (Manual) PT INR APTT D-Dimer > 31030 H Heparin Anti-Xa Level ABG pH POC ABG pCO2 POC ABG pO2 ABG pO2 ABG HCO3 ABG O2 Saturation ABG Base Excess ABG Hemoglobin ABG Oxyhemoglobin ABG Sodium ABG Potassium ABG Chloride ABG Glucose Oxyhemoglobin Carboxyhemoglobin Sodium Potassium Chloride Carbon Dioxide BUN Creatinine Glucose POC Glucose Lactic Acid Calcium Magnesium Ferritin Total Bilirubin Direct Bilirubin AST ALT Alkaline Phosphatase Lactate Dehydrogenase 1879 H C-Reactive Protein 24.80 H Total Protein Albumin Triglycerides Lipase Arterial Blood Glucose Arterial Blood Ionized Calcium Urine WBC (Auto) 11.0 H Coronavirus (PCR) SARS-CoV-2 IgG Ab Crossmatch 05/10/20 05/11/20 05/11/20 Unknown 07:30 07:30 WBC RBC Hgb Hct MCV MCH MCHC RDW Lymph % (Auto) [place] % (Auto) Lymph # (Auto) [place] # (Auto) Baso # (Auto) Seg Neutrophils % Seg Neuts % (Manual) Lymphocytes % (Manual) Nucleated RBC % Seg Neutrophils # Seg Neutrophils # Man Lymphocytes # (Manual) Monocytes # (Manual) Eosinophils # (Manual) PT INR APTT D-Dimer > 2000 H Heparin Anti-Xa Level ABG pH POC ABG pCO2 POC ABG pO2 ABG pO2 ABG HCO3 ABG O2 Saturation ABG Base Excess ABG Hemoglobin ABG Oxyhemoglobin ABG Sodium ABG Potassium ABG Chloride ABG Glucose Oxyhemoglobin Carboxyhemoglobin Sodium Potassium Chloride 96.3 L Carbon Dioxide BUN 36 H Creatinine Glucose 161 H POC Glucose Lactic Acid Calcium 8.3 L Magnesium Ferritin Total Bilirubin 1.50 H Direct Bilirubin 0.6 H AST 178 H ALT 111 H Alkaline Phosphatase Lactate Dehydrogenase C-Reactive Protein Total Protein Albumin 3.0 L Triglycerides Lipase Arterial Blood Glucose Arterial Blood Ionized Calcium Urine WBC (Auto) Coronavirus (PCR) Positive A SARS-CoV-2 IgG Ab Crossmatch 05/11/20 05/11/20 05/11/20 07:30 07:30 07:30 WBC RBC Hgb Hct MCV MCH MCHC RDW Lymph % (Auto) [place] % (Auto) Lymph # (Auto) [place] # (Auto) Baso # (Auto) Seg Neutrophils % Seg Neuts % (Manual) Lymphocytes % (Manual) Nucleated RBC % Seg Neutrophils # Seg Neutrophils # Man Lymphocytes # (Manual) Monocytes # (Manual) Eosinophils # (Manual) PT INR APTT D-Dimer Heparin Anti-Xa Level ABG pH POC ABG pCO2 POC ABG pO2 ABG pO2 ABG HCO3 ABG O2 Saturation ABG Base Excess ABG Hemoglobin ABG Oxyhemoglobin ABG Sodium ABG Potassium ABG Chloride ABG Glucose Oxyhemoglobin Carboxyhemoglobin Sodium Potassium Chloride Carbon Dioxide BUN Creatinine Glucose POC Glucose Lactic Acid Calcium Magnesium Ferritin 34945.0 H Total Bilirubin Direct Bilirubin AST ALT Alkaline Phosphatase Lactate Dehydrogenase 1523 H C-Reactive Protein 12.90 H Total Protein Albumin Triglycerides Lipase Arterial Blood Glucose Arterial Blood Ionized Calcium Urine WBC (Auto) Coronavirus (PCR) SARS-CoV-2 IgG Ab Reactive A Crossmatch 05/13/20 05/13/20 05/15/20 05:20 05:20 08:15 WBC RBC Hgb Hct MCV MCH MCHC RDW Lymph % (Auto) [place] % (Auto) Lymph # (Auto) [place] # (Auto) Baso # (Auto) Seg Neutrophils % Seg Neuts % (Manual) Lymphocytes % (Manual) Nucleated RBC % Seg Neutrophils # Seg Neutrophils # Man Lymphocytes # (Manual) Monocytes # (Manual) Eosinophils # (Manual) PT INR APTT D-Dimer > 10375 H 5318.28 H Heparin Anti-Xa Level ABG pH POC ABG pCO2 POC ABG pO2 ABG pO2 ABG HCO3 ABG O2 Saturation ABG Base Excess ABG Hemoglobin ABG Oxyhemoglobin ABG Sodium ABG Potassium ABG Chloride ABG Glucose Oxyhemoglobin Carboxyhemoglobin Sodium Potassium Chloride Carbon Dioxide 32 H BUN 30 H Creatinine Glucose 156 H POC Glucose Lactic Acid Calcium Magnesium 2.60 H Ferritin Total Bilirubin 1.40 H Direct Bilirubin AST 121 H ALT 119 H Alkaline Phosphatase Lactate Dehydrogenase 957 H C-Reactive Protein 4.00 H Total Protein Albumin 3.0 L Triglycerides Lipase Arterial Blood Glucose Arterial Blood Ionized Calcium Urine WBC (Auto) Coronavirus (PCR) SARS-CoV-2 IgG Ab Crossmatch 05/15/20 05/15/20 05/15/20 08:15 08:15 08:15 WBC 12.4 H RBC Hgb Hct MCV 98 H MCH 33 H MCHC RDW Lymph % (Auto) 9.7 L [place] % (Auto) Lymph # (Auto) [place] # (Auto) Baso # (Auto) Seg Neutrophils % 86.8 H Seg Neuts % (Manual) Lymphocytes % (Manual) Nucleated RBC % Seg Neutrophils # 10.8 H Seg Neutrophils # Man Lymphocytes # (Manual) Monocytes # (Manual) Eosinophils # (Manual) PT INR APTT D-Dimer Heparin Anti-Xa Level ABG pH POC ABG pCO2 POC ABG pO2 ABG pO2 ABG HCO3 ABG O2 Saturation ABG Base Excess ABG Hemoglobin ABG Oxyhemoglobin ABG Sodium ABG Potassium ABG Chloride ABG Glucose Oxyhemoglobin Carboxyhemoglobin Sodium Potassium Chloride 94.8 L Carbon Dioxide 32 H BUN 22 H Creatinine Glucose 115 H POC Glucose Lactic Acid Calcium 8.3 L Magnesium Ferritin 2494.0 H Total Bilirubin Direct Bilirubin AST 73 H ALT 121 H Alkaline Phosphatase Lactate Dehydrogenase 835 H C-Reactive Protein 3.40 H Total Protein 6.1 L Albumin 3.0 L Triglycerides Lipase Arterial Blood Glucose Arterial Blood Ionized Calcium Urine WBC (Auto) Coronavirus (PCR) SARS-CoV-2 IgG Ab Crossmatch 05/17/20 05/17/20 05/17/20 05:50 05:50 05:50 WBC RBC Hgb Hct MCV MCH MCHC RDW Lymph % (Auto) [place] % (Auto) Lymph # (Auto) [place] # (Auto) Baso # (Auto) Seg Neutrophils % Seg Neuts % (Manual) Lymphocytes % (Manual) Nucleated RBC % Seg Neutrophils # Seg Neutrophils # Man Lymphocytes # (Manual) Monocytes # (Manual) Eosinophils # (Manual) PT INR APTT D-Dimer 2911.42 H Heparin Anti-Xa Level ABG pH POC ABG pCO2 POC ABG pO2 ABG pO2 ABG HCO3 ABG O2 Saturation ABG Base Excess ABG Hemoglobin ABG Oxyhemoglobin ABG Sodium ABG Potassium ABG Chloride ABG Glucose Oxyhemoglobin Carboxyhemoglobin Sodium 136 L Potassium Chloride 96.0 L Carbon Dioxide 34 H BUN 22 H Creatinine Glucose 140 H POC Glucose Lactic Acid Calcium Magnesium Ferritin 2082.0 H Total Bilirubin Direct Bilirubin AST ALT 75 H Alkaline Phosphatase Lactate Dehydrogenase 601 H C-Reactive Protein 2.70 H Total Protein Albumin 2.9 L Triglycerides Lipase Arterial Blood Glucose Arterial Blood Ionized Calcium Urine WBC (Auto) Coronavirus (PCR) SARS-CoV-2 IgG Ab Crossmatch 05/17/20 05/18/20 05/20/20 05:50 12:22 08:16 WBC RBC Hgb Hct MCV 98 H MCH 33 H MCHC RDW Lymph % (Auto) 8.0 L [place] % (Auto) Lymph # (Auto) 0.8 L [place] # (Auto) Baso # (Auto) Seg Neutrophils % 89.3 H Seg Neuts % (Manual) Lymphocytes % (Manual) Nucleated RBC % Seg Neutrophils # 8.8 H Seg Neutrophils # Man Lymphocytes # (Manual) Monocytes # (Manual) Eosinophils # (Manual) PT INR APTT D-Dimer 1887.82 H Heparin Anti-Xa Level ABG pH POC ABG pCO2 POC ABG pO2 ABG pO2 ABG HCO3 ABG O2 Saturation ABG Base Excess ABG Hemoglobin ABG Oxyhemoglobin ABG Sodium ABG Potassium ABG Chloride ABG Glucose Oxyhemoglobin Carboxyhemoglobin Sodium Potassium Chloride Carbon Dioxide BUN Creatinine Glucose POC Glucose 178 H Lactic Acid Calcium Magnesium Ferritin Total Bilirubin Direct Bilirubin AST ALT Alkaline Phosphatase Lactate Dehydrogenase C-Reactive Protein Total Protein Albumin Triglycerides Lipase Arterial Blood Glucose Arterial Blood Ionized Calcium Urine WBC (Auto) Coronavirus (PCR) SARS-CoV-2 IgG Ab Crossmatch 05/20/20 05/20/20 05/21/20 08:16 08:16 21:10 WBC RBC Hgb Hct MCV MCH MCHC RDW Lymph % (Auto) [place] % (Auto) Lymph # (Auto) [place] # (Auto) Baso # (Auto) Seg Neutrophils % Seg Neuts % (Manual) Lymphocytes % (Manual) Nucleated RBC % Seg Neutrophils # Seg Neutrophils # Man Lymphocytes # (Manual) Monocytes # (Manual) Eosinophils # (Manual) PT INR APTT D-Dimer Heparin Anti-Xa Level ABG pH 7.483 H POC ABG pCO2 POC ABG pO2 ABG pO2 50.0 L ABG HCO3 27.0 H ABG O2 Saturation 86.2 L ABG Base Excess 3.7 H ABG Hemoglobin ABG Oxyhemoglobin ABG Sodium ABG Potassium ABG Chloride ABG Glucose Oxyhemoglobin 84.2 L Carboxyhemoglobin Sodium Potassium Chloride Carbon Dioxide BUN Creatinine Glucose POC Glucose Lactic Acid Calcium Magnesium Ferritin 1960.0 H Total Bilirubin Direct Bilirubin AST ALT Alkaline Phosphatase Lactate Dehydrogenase 705 H C-Reactive Protein 3.10 H Total Protein Albumin Triglycerides Lipase Arterial Blood Glucose Arterial Blood Ionized Calcium Urine WBC (Auto) Coronavirus (PCR) SARS-CoV-2 IgG Ab Crossmatch 05/22/20 05/22/20 05/22/20 04:01 07:53 07:53 WBC 19.2 H RBC Hgb Hct MCV 98 H MCH 34 H MCHC RDW Lymph % (Auto) [place] % (Auto) Lymph # (Auto) [place] # (Auto) Baso # (Auto) Seg Neutrophils % Seg Neuts % (Manual) 96.0 H Lymphocytes % (Manual) 1.0 L Nucleated RBC % Seg Neutrophils # Seg Neutrophils # Man 18.4 H Lymphocytes # (Manual) 0.2 L Monocytes # (Manual) Eosinophils # (Manual) PT INR APTT D-Dimer Heparin Anti-Xa Level ABG pH POC ABG pCO2 53.8 H POC ABG pO2 125.5 H ABG pO2 ABG HCO3 ABG O2 Saturation ABG Base Excess ABG Hemoglobin ABG Oxyhemoglobin ABG Sodium 131.8 L ABG Potassium 4.8 H ABG Chloride 94.0 L ABG Glucose 163 H Oxyhemoglobin Carboxyhemoglobin Sodium 131 L Potassium Chloride 93.4 L Carbon Dioxide BUN 40 H Creatinine Glucose 176 H POC Glucose Lactic Acid Calcium Magnesium 2.70 H Ferritin Total Bilirubin 1.80 H Direct Bilirubin AST 45 H ALT 116 H Alkaline Phosphatase 181 H Lactate Dehydrogenase C-Reactive Protein Total Protein Albumin 2.6 L Triglycerides Lipase Arterial Blood Glucose 163 H Arterial Blood Ionized Calcium 4.5 L Urine WBC (Auto) Coronavirus (PCR) SARS-CoV-2 IgG Ab Crossmatch 05/23/20 05/24/20 05/24/20 04:17 03:07 04:08 WBC RBC Hgb Hct MCV MCH MCHC RDW Lymph % (Auto) [place] % (Auto) Lymph # (Auto) [place] # (Auto) Baso # (Auto) Seg Neutrophils % Seg Neuts % (Manual) Lymphocytes % (Manual) Nucleated RBC % Seg Neutrophils # Seg Neutrophils # Man Lymphocytes # (Manual) Monocytes # (Manual) Eosinophils # (Manual) PT INR APTT D-Dimer Heparin Anti-Xa Level ABG pH 7.328 L POC ABG pCO2 POC ABG pO2 ABG pO2 72.8 L 73.4 L ABG HCO3 31.0 H 34.0 H ABG O2 Saturation 93.5 L ABG Base Excess 3.5 H 7.7 H ABG Hemoglobin 13.3 L 12.1 L ABG Oxyhemoglobin ABG Sodium ABG Potassium ABG Chloride ABG Glucose Oxyhemoglobin 91.5 L 94.3 L Carboxyhemoglobin Sodium Potassium Chloride Carbon Dioxide BUN Creatinine Glucose POC Glucose 155 H Lactic Acid Calcium Magnesium Ferritin Total Bilirubin Direct Bilirubin AST ALT Alkaline Phosphatase Lactate Dehydrogenase C-Reactive Protein Total Protein Albumin Triglycerides Lipase Arterial Blood Glucose Arterial Blood Ionized Calcium Urine WBC (Auto) Coronavirus (PCR) SARS-CoV-2 IgG Ab Crossmatch 05/24/20 05/24/20 05/24/20 09:33 12:21 17:52 WBC RBC Hgb Hct MCV MCH MCHC RDW Lymph % (Auto) [place] % (Auto) Lymph # (Auto) [place] # (Auto) Baso # (Auto) Seg Neutrophils % Seg Neuts % (Manual) Lymphocytes % (Manual) Nucleated RBC % Seg Neutrophils # Seg Neutrophils # Man Lymphocytes # (Manual) Monocytes # (Manual) Eosinophils # (Manual) PT INR APTT D-Dimer Heparin Anti-Xa Level ABG pH POC ABG pCO2 POC ABG pO2 ABG pO2 ABG HCO3 ABG O2 Saturation ABG Base Excess ABG Hemoglobin ABG Oxyhemoglobin ABG Sodium ABG Potassium ABG Chloride ABG Glucose Oxyhemoglobin Carboxyhemoglobin Sodium Potassium Chloride Carbon Dioxide 34 H D BUN 28 H Creatinine 0.7 L Glucose 168 H POC Glucose 173 H 164 H Lactic Acid Calcium Magnesium Ferritin Total Bilirubin Direct Bilirubin AST ALT Alkaline Phosphatase Lactate Dehydrogenase C-Reactive Protein Total Protein Albumin Triglycerides Lipase Arterial Blood Glucose Arterial Blood Ionized Calcium Urine WBC (Auto) Coronavirus (PCR) SARS-CoV-2 IgG Ab Crossmatch 05/24/20 05/25/20 05/25/20 23:47 04:29 05:46 WBC RBC Hgb Hct MCV MCH MCHC RDW Lymph % (Auto) [place] % (Auto) Lymph # (Auto) [place] # (Auto) Baso # (Auto) Seg Neutrophils % Seg Neuts % (Manual) Lymphocytes % (Manual) Nucleated RBC % Seg Neutrophils # Seg Neutrophils # Man Lymphocytes # (Manual) Monocytes # (Manual) Eosinophils # (Manual) PT INR APTT D-Dimer Heparin Anti-Xa Level ABG pH POC ABG pCO2 68.6 H POC ABG pO2 ABG pO2 ABG HCO3 ABG O2 Saturation ABG Base Excess ABG Hemoglobin ABG Oxyhemoglobin ABG Sodium ABG Potassium 4.7 H ABG Chloride ABG Glucose 226 H Oxyhemoglobin Carboxyhemoglobin Sodium Potassium Chloride Carbon Dioxide BUN Creatinine Glucose POC Glucose 171 H 201 H Lactic Acid Calcium Magnesium Ferritin Total Bilirubin Direct Bilirubin AST ALT Alkaline Phosphatase Lactate Dehydrogenase C-Reactive Protein Total Protein Albumin Triglycerides Lipase Arterial Blood Glucose 226 H Arterial Blood Ionized Calcium Urine WBC (Auto) Coronavirus (PCR) SARS-CoV-2 IgG Ab Crossmatch 05/25/20 05/25/20 05/25/20 08:37 08:37 12:38 WBC 12.0 H RBC 3.64 L Hgb Hct MCV 99 H MCH 33 H MCHC RDW Lymph % (Auto) [place] % (Auto) Lymph # (Auto) [place] # (Auto) Baso # (Auto) Seg Neutrophils % Seg Neuts % (Manual) Lymphocytes % (Manual) Nucleated RBC % Seg Neutrophils # Seg Neutrophils # Man Lymphocytes # (Manual) Monocytes # (Manual) Eosinophils # (Manual) PT INR APTT D-Dimer Heparin Anti-Xa Level ABG pH POC ABG pCO2 POC ABG pO2 ABG pO2 ABG HCO3 ABG O2 Saturation ABG Base Excess ABG Hemoglobin ABG Oxyhemoglobin ABG Sodium ABG Potassium ABG Chloride ABG Glucose Oxyhemoglobin Carboxyhemoglobin Sodium Potassium Chloride 97.3 L Carbon Dioxide 35 H BUN 25 H Creatinine 0.7 L Glucose 191 H POC Glucose 182 H Lactic Acid Calcium Magnesium Ferritin Total Bilirubin Direct Bilirubin AST ALT Alkaline Phosphatase Lactate Dehydrogenase C-Reactive Protein Total Protein Albumin Triglycerides Lipase Arterial Blood Glucose Arterial Blood Ionized Calcium Urine WBC (Auto) Coronavirus (PCR) SARS-CoV-2 IgG Ab Crossmatch 05/25/20 05/26/20 05/26/20 18:16 00:06 04:50 WBC RBC Hgb Hct MCV MCH MCHC RDW Lymph % (Auto) [place] % (Auto) Lymph # (Auto) [place] # (Auto) Baso # (Auto) Seg Neutrophils % Seg Neuts % (Manual) Lymphocytes % (Manual) Nucleated RBC % Seg Neutrophils # Seg Neutrophils # Man Lymphocytes # (Manual) Monocytes # (Manual) Eosinophils # (Manual) PT INR APTT D-Dimer Heparin Anti-Xa Level ABG pH POC ABG pCO2 POC ABG pO2 ABG pO2 221.5 H ABG HCO3 40.4 H ABG O2 Saturation 99.3 H ABG Base Excess 12.8 H ABG Hemoglobin 10.4 L ABG Oxyhemoglobin ABG Sodium ABG Potassium ABG Chloride ABG Glucose Oxyhemoglobin Carboxyhemoglobin Sodium Potassium Chloride Carbon Dioxide BUN Creatinine Glucose POC Glucose 176 H 152 H Lactic Acid Calcium Magnesium Ferritin Total Bilirubin Direct Bilirubin AST ALT Alkaline Phosphatase Lactate Dehydrogenase C-Reactive Protein Total Protein Albumin Triglycerides Lipase Arterial Blood Glucose Arterial Blood Ionized Calcium Urine WBC (Auto) Coronavirus (PCR) SARS-CoV-2 IgG Ab Crossmatch 05/26/20 05/26/20 05/26/20 06:11 07:51 07:51 WBC 13.4 H RBC 3.64 L Hgb Hct MCV 98 H MCH 33 H MCHC RDW Lymph % (Auto) [place] % (Auto) Lymph # (Auto) [place] # (Auto) Baso # (Auto) Seg Neutrophils % Seg Neuts % (Manual) Lymphocytes % (Manual) Nucleated RBC % Seg Neutrophils # Seg Neutrophils # Man Lymphocytes # (Manual) Monocytes # (Manual) Eosinophils # (Manual) PT INR APTT D-Dimer Heparin Anti-Xa Level ABG pH POC ABG pCO2 POC ABG pO2 ABG pO2 ABG HCO3 ABG O2 Saturation ABG Base Excess ABG Hemoglobin ABG Oxyhemoglobin ABG Sodium ABG Potassium ABG Chloride ABG Glucose Oxyhemoglobin Carboxyhemoglobin Sodium Potassium Chloride 96.6 L Carbon Dioxide 39 H BUN 29 H Creatinine 0.7 L Glucose 174 H POC Glucose 165 H Lactic Acid Calcium Magnesium Ferritin Total Bilirubin Direct Bilirubin AST ALT Alkaline Phosphatase Lactate Dehydrogenase C-Reactive Protein Total Protein Albumin Triglycerides Lipase Arterial Blood Glucose Arterial Blood Ionized Calcium Urine WBC (Auto) Coronavirus (PCR) SARS-CoV-2 IgG Ab Crossmatch 05/26/20 05/27/20 05/27/20 23:23 03:43 05:29 WBC RBC Hgb Hct MCV MCH MCHC RDW Lymph % (Auto) [place] % (Auto) Lymph # (Auto) [place] # (Auto) Baso # (Auto) Seg Neutrophils % Seg Neuts % (Manual) Lymphocytes % (Manual) Nucleated RBC % Seg Neutrophils # Seg Neutrophils # Man Lymphocytes # (Manual) Monocytes # (Manual) Eosinophils # (Manual) PT INR APTT D-Dimer Heparin Anti-Xa Level ABG pH 7.480 H POC ABG pCO2 52.4 H POC ABG pO2 61.4 L ABG pO2 ABG HCO3 ABG O2 Saturation ABG Base Excess ABG Hemoglobin ABG Oxyhemoglobin ABG Sodium 134.9 L ABG Potassium ABG Chloride 95.0 L ABG Glucose 221 H Oxyhemoglobin Carboxyhemoglobin Sodium Potassium Chloride Carbon Dioxide BUN Creatinine Glucose POC Glucose 169 H 227 H Lactic Acid Calcium Magnesium Ferritin Total Bilirubin Direct Bilirubin AST ALT Alkaline Phosphatase Lactate Dehydrogenase C-Reactive Protein Total Protein Albumin Triglycerides Lipase Arterial Blood Glucose 221 H Arterial Blood Ionized Calcium 4.5 L Urine WBC (Auto) Coronavirus (PCR) SARS-CoV-2 IgG Ab Crossmatch 05/27/20 05/27/20 05/27/20 07:19 12:18 13:50 WBC RBC Hgb Hct MCV MCH MCHC RDW Lymph % (Auto) [place] % (Auto) Lymph # (Auto) [place] # (Auto) Baso # (Auto) Seg Neutrophils % Seg Neuts % (Manual) Lymphocytes % (Manual) Nucleated RBC % Seg Neutrophils # Seg Neutrophils # Man Lymphocytes # (Manual) Monocytes # (Manual) Eosinophils # (Manual) PT INR APTT D-Dimer Heparin Anti-Xa Level ABG pH POC ABG pCO2 POC ABG pO2 ABG pO2 ABG HCO3 ABG O2 Saturation ABG Base Excess ABG Hemoglobin ABG Oxyhemoglobin ABG Sodium ABG Potassium ABG Chloride ABG Glucose Oxyhemoglobin Carboxyhemoglobin Sodium Potassium Chloride Carbon Dioxide BUN Creatinine Glucose POC Glucose 114 H 148 H Lactic Acid Calcium Magnesium Ferritin Total Bilirubin Direct Bilirubin AST ALT Alkaline Phosphatase Lactate Dehydrogenase C-Reactive Protein Total Protein Albumin Triglycerides 247 H Lipase Arterial Blood Glucose Arterial Blood Ionized Calcium Urine WBC (Auto) Coronavirus (PCR) SARS-CoV-2 IgG Ab Crossmatch 05/28/20 05/28/20 05/28/20 00:13 04:16 05:22 WBC RBC Hgb Hct MCV MCH MCHC RDW Lymph % (Auto) [place] % (Auto) Lymph # (Auto) [place] # (Auto) Baso # (Auto) Seg Neutrophils % Seg Neuts % (Manual) Lymphocytes % (Manual) Nucleated RBC % Seg Neutrophils # Seg Neutrophils # Man Lymphocytes # (Manual) Monocytes # (Manual) Eosinophils # (Manual) PT INR APTT D-Dimer Heparin Anti-Xa Level ABG pH POC ABG pCO2 64.4 H POC ABG pO2 60.5 L ABG pO2 ABG HCO3 ABG O2 Saturation ABG Base Excess ABG Hemoglobin ABG Oxyhemoglobin ABG Sodium ABG Potassium ABG Chloride 95.0 L ABG Glucose 209 H Oxyhemoglobin Carboxyhemoglobin Sodium Potassium Chloride Carbon Dioxide BUN Creatinine Glucose POC Glucose 155 H 186 H Lactic Acid Calcium Magnesium Ferritin Total Bilirubin Direct Bilirubin AST ALT Alkaline Phosphatase Lactate Dehydrogenase C-Reactive Protein Total Protein Albumin Triglycerides Lipase Arterial Blood Glucose 209 H Arterial Blood Ionized Calcium Urine WBC (Auto) Coronavirus (PCR) SARS-CoV-2 IgG Ab Crossmatch 05/28/20 05/28/20 05/29/20 12:45 17:39 00:37 WBC RBC Hgb Hct MCV MCH MCHC RDW Lymph % (Auto) [place] % (Auto) Lymph # (Auto) [place] # (Auto) Baso # (Auto) Seg Neutrophils % Seg Neuts % (Manual) Lymphocytes % (Manual) Nucleated RBC % Seg Neutrophils # Seg Neutrophils # Man Lymphocytes # (Manual) Monocytes # (Manual) Eosinophils # (Manual) PT INR APTT D-Dimer Heparin Anti-Xa Level ABG pH POC ABG pCO2 POC ABG pO2 ABG pO2 ABG HCO3 ABG O2 Saturation ABG Base Excess ABG Hemoglobin ABG Oxyhemoglobin ABG Sodium ABG Potassium ABG Chloride ABG Glucose Oxyhemoglobin Carboxyhemoglobin Sodium Potassium Chloride Carbon Dioxide BUN Creatinine Glucose POC Glucose 143 H 164 H 221 H Lactic Acid Calcium Magnesium Ferritin Total Bilirubin Direct Bilirubin AST ALT Alkaline Phosphatase Lactate Dehydrogenase C-Reactive Protein Total Protein Albumin Triglycerides Lipase Arterial Blood Glucose Arterial Blood Ionized Calcium Urine WBC (Auto) Coronavirus (PCR) SARS-CoV-2 IgG Ab Crossmatch 05/29/20 05/29/20 05/29/20 04:15 05:33 12:34 WBC RBC Hgb Hct MCV MCH MCHC RDW Lymph % (Auto) [place] % (Auto) Lymph # (Auto) [place] # (Auto) Baso # (Auto) Seg Neutrophils % Seg Neuts % (Manual) Lymphocytes % (Manual) Nucleated RBC % Seg Neutrophils # Seg Neutrophils # Man Lymphocytes # (Manual) Monocytes # (Manual) Eosinophils # (Manual) PT INR APTT D-Dimer Heparin Anti-Xa Level ABG pH 7.463 H POC ABG pCO2 56.3 H POC ABG pO2 81.2 L ABG pO2 ABG HCO3 ABG O2 Saturation ABG Base Excess ABG Hemoglobin ABG Oxyhemoglobin ABG Sodium ABG Potassium ABG Chloride 96.0 L ABG Glucose 194 H Oxyhemoglobin Carboxyhemoglobin Sodium Potassium Chloride Carbon Dioxide BUN Creatinine Glucose POC Glucose 133 H 221 H Lactic Acid Calcium Magnesium Ferritin Total Bilirubin Direct Bilirubin AST ALT Alkaline Phosphatase Lactate Dehydrogenase C-Reactive Protein Total Protein Albumin Triglycerides Lipase Arterial Blood Glucose 194 H Arterial Blood Ionized Calcium 4.5 L Urine WBC (Auto) Coronavirus (PCR) SARS-CoV-2 IgG Ab Crossmatch 05/29/20 05/30/20 05/30/20 18:07 00:12 05:38 WBC RBC Hgb Hct MCV MCH MCHC RDW Lymph % (Auto) [place] % (Auto) Lymph # (Auto) [place] # (Auto) Baso # (Auto) Seg Neutrophils % Seg Neuts % (Manual) Lymphocytes % (Manual) Nucleated RBC % Seg Neutrophils # Seg Neutrophils # Man Lymphocytes # (Manual) Monocytes # (Manual) Eosinophils # (Manual) PT INR APTT D-Dimer Heparin Anti-Xa Level ABG pH POC ABG pCO2 POC ABG pO2 ABG pO2 ABG HCO3 ABG O2 Saturation ABG Base Excess ABG Hemoglobin ABG Oxyhemoglobin ABG Sodium ABG Potassium ABG Chloride ABG Glucose Oxyhemoglobin Carboxyhemoglobin Sodium Potassium Chloride Carbon Dioxide BUN Creatinine Glucose POC Glucose 162 H 190 H 208 H Lactic Acid Calcium Magnesium Ferritin Total Bilirubin Direct Bilirubin AST ALT Alkaline Phosphatase Lactate Dehydrogenase C-Reactive Protein Total Protein Albumin Triglycerides Lipase Arterial Blood Glucose Arterial Blood Ionized Calcium Urine WBC (Auto) Coronavirus (PCR) SARS-CoV-2 IgG Ab Crossmatch 05/30/20 05/30/20 05/30/20 09:30 11:35 11:54 WBC 12.4 H RBC 3.48 L Hgb 11.3 L Hct 34.6 L MCV 99 H MCH 33 H MCHC RDW Lymph % (Auto) [place] % (Auto) Lymph # (Auto) [place] # (Auto) Baso # (Auto) Seg Neutrophils % Seg Neuts % (Manual) Lymphocytes % (Manual) Nucleated RBC % Seg Neutrophils # Seg Neutrophils # Man Lymphocytes # (Manual) Monocytes # (Manual) Eosinophils # (Manual) PT INR APTT D-Dimer Heparin Anti-Xa Level ABG pH 7.455 H POC ABG pCO2 57.5 H POC ABG pO2 81.5 L ABG pO2 ABG HCO3 ABG O2 Saturation ABG Base Excess ABG Hemoglobin ABG Oxyhemoglobin ABG Sodium ABG Potassium ABG Chloride 96.0 L ABG Glucose 204 H Oxyhemoglobin Carboxyhemoglobin Sodium Potassium Chloride Carbon Dioxide BUN Creatinine Glucose POC Glucose 183 H Lactic Acid Calcium Magnesium Ferritin Total Bilirubin Direct Bilirubin AST ALT Alkaline Phosphatase Lactate Dehydrogenase C-Reactive Protein Total Protein Albumin Triglycerides Lipase Arterial Blood Glucose 204 H Arterial Blood Ionized Calcium Urine WBC (Auto) Coronavirus (PCR) SARS-CoV-2 IgG Ab Crossmatch 05/30/20 05/31/20 05/31/20 18:01 00:10 03:22 WBC RBC Hgb Hct MCV MCH MCHC RDW Lymph % (Auto) [place] % (Auto) Lymph # (Auto) [place] # (Auto) Baso # (Auto) Seg Neutrophils % Seg Neuts % (Manual) Lymphocytes % (Manual) Nucleated RBC % Seg Neutrophils # Seg Neutrophils # Man Lymphocytes # (Manual) Monocytes # (Manual) Eosinophils # (Manual) PT INR APTT D-Dimer Heparin Anti-Xa Level ABG pH POC ABG pCO2 60.4 H POC ABG pO2 71.5 L ABG pO2 ABG HCO3 ABG O2 Saturation ABG Base Excess ABG Hemoglobin ABG Oxyhemoglobin ABG Sodium ABG Potassium ABG Chloride 96.0 L ABG Glucose 169 H Oxyhemoglobin Carboxyhemoglobin Sodium Potassium Chloride Carbon Dioxide BUN Creatinine Glucose POC Glucose 184 H 135 H Lactic Acid Calcium Magnesium Ferritin Total Bilirubin Direct Bilirubin AST ALT Alkaline Phosphatase Lactate Dehydrogenase C-Reactive Protein Total Protein Albumin Triglycerides Lipase Arterial Blood Glucose 169 H Arterial Blood Ionized Calcium 4.5 L Urine WBC (Auto) Coronavirus (PCR) SARS-CoV-2 IgG Ab Crossmatch 05/31/20 05/31/20 05/31/20 05:24 11:18 14:41 WBC RBC Hgb Hct MCV MCH MCHC RDW Lymph % (Auto) [place] % (Auto) Lymph # (Auto) [place] # (Auto) Baso # (Auto) Seg Neutrophils % Seg Neuts % (Manual) Lymphocytes % (Manual) Nucleated RBC % Seg Neutrophils # Seg Neutrophils # Man Lymphocytes # (Manual) Monocytes # (Manual) Eosinophils # (Manual) PT INR APTT D-Dimer Heparin Anti-Xa Level ABG pH POC ABG pCO2 POC ABG pO2 ABG pO2 ABG HCO3 ABG O2 Saturation ABG Base Excess ABG Hemoglobin ABG Oxyhemoglobin ABG Sodium ABG Potassium ABG Chloride ABG Glucose Oxyhemoglobin Carboxyhemoglobin Sodium Potassium Chloride 96.8 L Carbon Dioxide 37 H BUN 31 H Creatinine 0.6 L Glucose 213 H POC Glucose 164 H 208 H Lactic Acid Calcium Magnesium Ferritin Total Bilirubin Direct Bilirubin AST ALT Alkaline Phosphatase Lactate Dehydrogenase C-Reactive Protein Total Protein Albumin Triglycerides Lipase Arterial Blood Glucose Arterial Blood Ionized Calcium Urine WBC (Auto) Coronavirus (PCR) SARS-CoV-2 IgG Ab Crossmatch 05/31/20 05/31/20 06/01/20 17:37 23:47 03:48 WBC RBC Hgb Hct MCV MCH MCHC RDW Lymph % (Auto) [place] % (Auto) Lymph # (Auto) [place] # (Auto) Baso # (Auto) Seg Neutrophils % Seg Neuts % (Manual) Lymphocytes % (Manual) Nucleated RBC % Seg Neutrophils # Seg Neutrophils # Man Lymphocytes # (Manual) Monocytes # (Manual) Eosinophils # (Manual) PT INR APTT D-Dimer Heparin Anti-Xa Level ABG pH POC ABG pCO2 59.7 H POC ABG pO2 73.9 L ABG pO2 ABG HCO3 ABG O2 Saturation ABG Base Excess ABG Hemoglobin ABG Oxyhemoglobin ABG Sodium ABG Potassium ABG Chloride 95.0 L ABG Glucose 256 H Oxyhemoglobin Carboxyhemoglobin Sodium Potassium Chloride Carbon Dioxide BUN Creatinine Glucose POC Glucose 168 H 178 H Lactic Acid Calcium Magnesium Ferritin Total Bilirubin Direct Bilirubin AST ALT Alkaline Phosphatase Lactate Dehydrogenase C-Reactive Protein Total Protein Albumin Triglycerides Lipase Arterial Blood Glucose 256 H Arterial Blood Ionized Calcium Urine WBC (Auto) Coronavirus (PCR) SARS-CoV-2 IgG Ab Crossmatch 06/01/20 06/01/20 06/01/20 05:01 07:47 07:47 WBC 14.4 H RBC 3.46 L Hgb 11.1 L Hct 34.3 L MCV 99 H MCH MCHC RDW Lymph % (Auto) [place] % (Auto) Lymph # (Auto) [place] # (Auto) Baso # (Auto) Seg Neutrophils % Seg Neuts % (Manual) 86.0 H Lymphocytes % (Manual) 9.0 L Nucleated RBC % Seg Neutrophils # Seg Neutrophils # Man 12.4 H Lymphocytes # (Manual) Monocytes # (Manual) Eosinophils # (Manual) PT INR APTT D-Dimer Heparin Anti-Xa Level ABG pH POC ABG pCO2 POC ABG pO2 ABG pO2 ABG HCO3 ABG O2 Saturation ABG Base Excess ABG Hemoglobin ABG Oxyhemoglobin ABG Sodium ABG Potassium ABG Chloride ABG Glucose Oxyhemoglobin Carboxyhemoglobin Sodium Potassium Chloride Carbon Dioxide BUN Creatinine Glucose POC Glucose 197 H Lactic Acid Calcium Magnesium Ferritin Total Bilirubin Direct Bilirubin AST ALT Alkaline Phosphatase Lactate Dehydrogenase C-Reactive Protein Total Protein Albumin Triglycerides 244 H Lipase Arterial Blood Glucose Arterial Blood Ionized Calcium Urine WBC (Auto) Coronavirus (PCR) SARS-CoV-2 IgG Ab Crossmatch 06/01/20 06/01/20 06/01/20 07:47 11:46 18:15 WBC RBC Hgb Hct MCV MCH MCHC RDW Lymph % (Auto) [place] % (Auto) Lymph # (Auto) [place] # (Auto) Baso # (Auto) Seg Neutrophils % Seg Neuts % (Manual) Lymphocytes % (Manual) Nucleated RBC % Seg Neutrophils # Seg Neutrophils # Man Lymphocytes # (Manual) Monocytes # (Manual) Eosinophils # (Manual) PT INR APTT D-Dimer Heparin Anti-Xa Level ABG pH POC ABG pCO2 POC ABG pO2 ABG pO2 ABG HCO3 ABG O2 Saturation ABG Base Excess ABG Hemoglobin ABG Oxyhemoglobin ABG Sodium ABG Potassium ABG Chloride ABG Glucose Oxyhemoglobin Carboxyhemoglobin Sodium Potassium Chloride 95.4 L Carbon Dioxide 35 H BUN 30 H Creatinine 0.5 L Glucose 214 H POC Glucose 181 H 221 H Lactic Acid Calcium Magnesium Ferritin Total Bilirubin Direct Bilirubin AST 54 H ALT 235 H Alkaline Phosphatase Lactate Dehydrogenase C-Reactive Protein Total Protein Albumin 2.9 L Triglycerides Lipase Arterial Blood Glucose Arterial Blood Ionized Calcium Urine WBC (Auto) Coronavirus (PCR) SARS-CoV-2 IgG Ab Crossmatch 06/01/20 06/02/20 06/02/20 23:12 04:00 05:31 WBC RBC Hgb Hct MCV MCH MCHC RDW Lymph % (Auto) [place] % (Auto) Lymph # (Auto) [place] # (Auto) Baso # (Auto) Seg Neutrophils % Seg Neuts % (Manual) Lymphocytes % (Manual) Nucleated RBC % Seg Neutrophils # Seg Neutrophils # Man Lymphocytes # (Manual) Monocytes # (Manual) Eosinophils # (Manual) PT INR APTT D-Dimer Heparin Anti-Xa Level ABG pH 7.465 H POC ABG pCO2 POC ABG pO2 ABG pO2 203.4 H ABG HCO3 41.2 H ABG O2 Saturation 99.3 H ABG Base Excess 15.1 H ABG Hemoglobin 11.5 L ABG Oxyhemoglobin ABG Sodium ABG Potassium ABG Chloride ABG Glucose Oxyhemoglobin Carboxyhemoglobin Sodium Potassium Chloride Carbon Dioxide BUN Creatinine Glucose POC Glucose 197 H 184 H Lactic Acid Calcium Magnesium Ferritin Total Bilirubin Direct Bilirubin AST ALT Alkaline Phosphatase Lactate Dehydrogenase C-Reactive Protein Total Protein Albumin Triglycerides Lipase Arterial Blood Glucose Arterial Blood Ionized Calcium Urine WBC (Auto) Coronavirus (PCR) SARS-CoV-2 IgG Ab Crossmatch 06/02/20 06/02/20 06/02/20 11:49 18:06 23:00 WBC RBC Hgb Hct MCV MCH MCHC RDW Lymph % (Auto) [place] % (Auto) Lymph # (Auto) [place] # (Auto) Baso # (Auto) Seg Neutrophils % Seg Neuts % (Manual) Lymphocytes % (Manual) Nucleated RBC % Seg Neutrophils # Seg Neutrophils # Man Lymphocytes # (Manual) Monocytes # (Manual) Eosinophils # (Manual) PT INR APTT D-Dimer Heparin Anti-Xa Level ABG pH POC ABG pCO2 POC ABG pO2 ABG pO2 ABG HCO3 ABG O2 Saturation ABG Base Excess ABG Hemoglobin ABG Oxyhemoglobin ABG Sodium ABG Potassium ABG Chloride ABG Glucose Oxyhemoglobin Carboxyhemoglobin Sodium Potassium Chloride Carbon Dioxide BUN Creatinine Glucose POC Glucose 195 H 177 H 228 H Lactic Acid Calcium Magnesium Ferritin Total Bilirubin Direct Bilirubin AST ALT Alkaline Phosphatase Lactate Dehydrogenase C-Reactive Protein Total Protein Albumin Triglycerides Lipase Arterial Blood Glucose Arterial Blood Ionized Calcium Urine WBC (Auto) Coronavirus (PCR) SARS-CoV-2 IgG Ab Crossmatch 06/03/20 06/03/20 06/03/20 03:58 05:19 12:21 WBC RBC Hgb Hct MCV MCH MCHC RDW Lymph % (Auto) [place] % (Auto) Lymph # (Auto) [place] # (Auto) Baso # (Auto) Seg Neutrophils % Seg Neuts % (Manual) Lymphocytes % (Manual) Nucleated RBC % Seg Neutrophils # Seg Neutrophils # Man Lymphocytes # (Manual) Monocytes # (Manual) Eosinophils # (Manual) PT INR APTT D-Dimer Heparin Anti-Xa Level ABG pH POC ABG pCO2 POC ABG pO2 ABG pO2 171.0 H ABG HCO3 42.8 H ABG O2 Saturation ABG Base Excess 15.6 H ABG Hemoglobin 12.3 L ABG Oxyhemoglobin ABG Sodium ABG Potassium ABG Chloride ABG Glucose Oxyhemoglobin Carboxyhemoglobin Sodium Potassium Chloride Carbon Dioxide BUN Creatinine Glucose POC Glucose 122 H 207 H Lactic Acid Calcium Magnesium Ferritin Total Bilirubin Direct Bilirubin AST ALT Alkaline Phosphatase Lactate Dehydrogenase C-Reactive Protein Total Protein Albumin Triglycerides Lipase Arterial Blood Glucose Arterial Blood Ionized Calcium Urine WBC (Auto) Coronavirus (PCR) SARS-CoV-2 IgG Ab Crossmatch 06/03/20 06/03/20 06/04/20 17:27 23:50 03:55 WBC RBC Hgb Hct MCV MCH MCHC RDW Lymph % (Auto) [place] % (Auto) Lymph # (Auto) [place] # (Auto) Baso # (Auto) Seg Neutrophils % Seg Neuts % (Manual) Lymphocytes % (Manual) Nucleated RBC % Seg Neutrophils # Seg Neutrophils # Man Lymphocytes # (Manual) Monocytes # (Manual) Eosinophils # (Manual) PT INR APTT D-Dimer Heparin Anti-Xa Level ABG pH POC ABG pCO2 POC ABG pO2 ABG pO2 117.2 H ABG HCO3 42.4 H ABG O2 Saturation ABG Base Excess 15.3 H ABG Hemoglobin 10.5 L ABG Oxyhemoglobin ABG Sodium ABG Potassium ABG Chloride ABG Glucose Oxyhemoglobin Carboxyhemoglobin Sodium Potassium Chloride Carbon Dioxide BUN Creatinine Glucose POC Glucose 157 H 214 H Lactic Acid Calcium Magnesium Ferritin Total Bilirubin Direct Bilirubin AST ALT Alkaline Phosphatase Lactate Dehydrogenase C-Reactive Protein Total Protein Albumin Triglycerides Lipase Arterial Blood Glucose Arterial Blood Ionized Calcium Urine WBC (Auto) Coronavirus (PCR) SARS-CoV-2 IgG Ab Crossmatch 06/04/20 06/04/20 06/04/20 05:49 11:41 17:30 WBC RBC Hgb Hct MCV MCH MCHC RDW Lymph % (Auto) [place] % (Auto) Lymph # (Auto) [place] # (Auto) Baso # (Auto) Seg Neutrophils % Seg Neuts % (Manual) Lymphocytes % (Manual) Nucleated RBC % Seg Neutrophils # Seg Neutrophils # Man Lymphocytes # (Manual) Monocytes # (Manual) Eosinophils # (Manual) PT INR APTT D-Dimer Heparin Anti-Xa Level ABG pH POC ABG pCO2 POC ABG pO2 ABG pO2 ABG HCO3 ABG O2 Saturation ABG Base Excess ABG Hemoglobin ABG Oxyhemoglobin ABG Sodium ABG Potassium ABG Chloride ABG Glucose Oxyhemoglobin Carboxyhemoglobin Sodium Potassium Chloride Carbon Dioxide BUN Creatinine Glucose POC Glucose 149 H 233 H 156 H Lactic Acid Calcium Magnesium Ferritin Total Bilirubin Direct Bilirubin AST ALT Alkaline Phosphatase Lactate Dehydrogenase C-Reactive Protein Total Protein Albumin Triglycerides Lipase Arterial Blood Glucose Arterial Blood Ionized Calcium Urine WBC (Auto) Coronavirus (PCR) SARS-CoV-2 IgG Ab Crossmatch 06/04/20 06/04/20 06/04/20 19:01 20:53 23:41 WBC RBC 3.18 L Hgb 10.8 L Hct 31.8 L MCV 100 H MCH 34 H MCHC RDW Lymph % (Auto) [place] % (Auto) Lymph # (Auto) [place] # (Auto) Baso # (Auto) Seg Neutrophils % Seg Neuts % (Manual) 86.0 H Lymphocytes % (Manual) 10.0 L Nucleated RBC % 1.0 H Seg Neutrophils # Seg Neutrophils # Man 8.5 H Lymphocytes # (Manual) 1.0 L Monocytes # (Manual) Eosinophils # (Manual) PT INR APTT D-Dimer Heparin Anti-Xa Level ABG pH POC ABG pCO2 POC ABG pO2 ABG pO2 ABG HCO3 ABG O2 Saturation ABG Base Excess ABG Hemoglobin ABG Oxyhemoglobin ABG Sodium ABG Potassium ABG Chloride ABG Glucose Oxyhemoglobin Carboxyhemoglobin Sodium Potassium 3.4 L D Chloride 96.5 L Carbon Dioxide 41 H* BUN 27 H Creatinine 0.5 L Glucose 173 H POC Glucose 217 H Lactic Acid Calcium Magnesium Ferritin Total Bilirubin Direct Bilirubin AST ALT Alkaline Phosphatase Lactate Dehydrogenase C-Reactive Protein Total Protein Albumin Triglycerides Lipase Arterial Blood Glucose Arterial Blood Ionized Calcium Urine WBC (Auto) Coronavirus (PCR) SARS-CoV-2 IgG Ab Crossmatch 06/05/20 06/05/20 06/05/20 06:05 11:54 12:35 WBC RBC Hgb Hct MCV MCH MCHC RDW Lymph % (Auto) [place] % (Auto) Lymph # (Auto) [place] # (Auto) Baso # (Auto) Seg Neutrophils % Seg Neuts % (Manual) Lymphocytes % (Manual) Nucleated RBC % Seg Neutrophils # Seg Neutrophils # Man Lymphocytes # (Manual) Monocytes # (Manual) Eosinophils # (Manual) PT INR APTT D-Dimer Heparin Anti-Xa Level ABG pH POC ABG pCO2 POC ABG pO2 ABG pO2 127.9 H ABG HCO3 41.1 H ABG O2 Saturation ABG Base Excess 13.0 H ABG Hemoglobin 13.4 L ABG Oxyhemoglobin ABG Sodium ABG Potassium ABG Chloride ABG Glucose Oxyhemoglobin Carboxyhemoglobin Sodium Potassium Chloride Carbon Dioxide BUN Creatinine Glucose POC Glucose 137 H 211 H Lactic Acid Calcium Magnesium Ferritin Total Bilirubin Direct Bilirubin AST ALT Alkaline Phosphatase Lactate Dehydrogenase C-Reactive Protein Total Protein Albumin Triglycerides Lipase Arterial Blood Glucose Arterial Blood Ionized Calcium Urine WBC (Auto) Coronavirus (PCR) SARS-CoV-2 IgG Ab Crossmatch 06/05/20 06/05/20 06/06/20 17:03 23:49 04:42 WBC RBC Hgb Hct MCV MCH MCHC RDW Lymph % (Auto) [place] % (Auto) Lymph # (Auto) [place] # (Auto) Baso # (Auto) Seg Neutrophils % Seg Neuts % (Manual) Lymphocytes % (Manual) Nucleated RBC % Seg Neutrophils # Seg Neutrophils # Man Lymphocytes # (Manual) Monocytes # (Manual) Eosinophils # (Manual) PT INR APTT D-Dimer Heparin Anti-Xa Level ABG pH POC ABG pCO2 56.1 H POC ABG pO2 52.5 L ABG pO2 ABG HCO3 ABG O2 Saturation ABG Base Excess ABG Hemoglobin 11.7 L ABG Oxyhemoglobin ABG Sodium ABG Potassium 3.3 L ABG Chloride 95.0 L ABG Glucose 156 H Oxyhemoglobin Carboxyhemoglobin Sodium Potassium Chloride Carbon Dioxide BUN Creatinine Glucose POC Glucose 159 H 194 H Lactic Acid Calcium Magnesium Ferritin Total Bilirubin Direct Bilirubin AST ALT Alkaline Phosphatase Lactate Dehydrogenase C-Reactive Protein Total Protein Albumin Triglycerides Lipase Arterial Blood Glucose 156 H Arterial Blood Ionized Calcium Urine WBC (Auto) Coronavirus (PCR) SARS-CoV-2 IgG Ab Crossmatch 06/06/20 06/06/20 06/06/20 05:57 12:06 17:38 WBC RBC Hgb Hct MCV MCH MCHC RDW Lymph % (Auto) [place] % (Auto) Lymph # (Auto) [place] # (Auto) Baso # (Auto) Seg Neutrophils % Seg Neuts % (Manual) Lymphocytes % (Manual) Nucleated RBC % Seg Neutrophils # Seg Neutrophils # Man Lymphocytes # (Manual) Monocytes # (Manual) Eosinophils # (Manual) PT INR APTT D-Dimer Heparin Anti-Xa Level ABG pH POC ABG pCO2 POC ABG pO2 ABG pO2 ABG HCO3 ABG O2 Saturation ABG Base Excess ABG Hemoglobin ABG Oxyhemoglobin ABG Sodium ABG Potassium ABG Chloride ABG Glucose Oxyhemoglobin Carboxyhemoglobin Sodium Potassium Chloride Carbon Dioxide BUN Creatinine Glucose POC Glucose 144 H 230 H 162 H Lactic Acid Calcium Magnesium Ferritin Total Bilirubin Direct Bilirubin AST ALT Alkaline Phosphatase Lactate Dehydrogenase C-Reactive Protein Total Protein Albumin Triglycerides Lipase Arterial Blood Glucose Arterial Blood Ionized Calcium Urine WBC (Auto) Coronavirus (PCR) SARS-CoV-2 IgG Ab Crossmatch 06/06/20 06/07/20 06/07/20 23:50 04:34 06:03 WBC RBC Hgb Hct MCV MCH MCHC RDW Lymph % (Auto) [place] % (Auto) Lymph # (Auto) [place] # (Auto) Baso # (Auto) Seg Neutrophils % Seg Neuts % (Manual) Lymphocytes % (Manual) Nucleated RBC % Seg Neutrophils # Seg Neutrophils # Man Lymphocytes # (Manual) Monocytes # (Manual) Eosinophils # (Manual) PT INR APTT D-Dimer Heparin Anti-Xa Level ABG pH 7.511 H POC ABG pCO2 53.5 H POC ABG pO2 114.5 H ABG pO2 ABG HCO3 ABG O2 Saturation ABG Base Excess ABG Hemoglobin 9.4 L ABG Oxyhemoglobin ABG Sodium 134.5 L ABG Potassium ABG Chloride 94.0 L ABG Glucose 186 H Oxyhemoglobin Carboxyhemoglobin Sodium Potassium Chloride Carbon Dioxide BUN Creatinine Glucose POC Glucose 181 H 155 H Lactic Acid Calcium Magnesium Ferritin Total Bilirubin Direct Bilirubin AST ALT Alkaline Phosphatase Lactate Dehydrogenase C-Reactive Protein Total Protein Albumin Triglycerides Lipase Arterial Blood Glucose 186 H Arterial Blood Ionized Calcium 4.5 L Urine WBC (Auto) Coronavirus (PCR) SARS-CoV-2 IgG Ab Crossmatch 06/07/20 06/07/20 06/07/20 13:41 14:58 14:58 WBC RBC 2.72 L Hgb 9.3 L Hct 27.2 L MCV 100 H MCH 34 H MCHC RDW Lymph % (Auto) [place] % (Auto) Lymph # (Auto) [place] # (Auto) Baso # (Auto) Seg Neutrophils % Seg Neuts % (Manual) Lymphocytes % (Manual) Nucleated RBC % Seg Neutrophils # Seg Neutrophils # Man Lymphocytes # (Manual) Monocytes # (Manual) Eosinophils # (Manual) PT INR APTT D-Dimer Heparin Anti-Xa Level ABG pH POC ABG pCO2 POC ABG pO2 ABG pO2 ABG HCO3 ABG O2 Saturation ABG Base Excess ABG Hemoglobin ABG Oxyhemoglobin ABG Sodium ABG Potassium ABG Chloride ABG Glucose Oxyhemoglobin Carboxyhemoglobin Sodium Potassium Chloride 93.5 L Carbon Dioxide 39 H BUN 22 H Creatinine 0.4 L Glucose 188 H POC Glucose 201 H Lactic Acid Calcium Magnesium Ferritin Total Bilirubin Direct Bilirubin AST 61 H ALT 273 H Alkaline Phosphatase Lactate Dehydrogenase C-Reactive Protein Total Protein 5.9 L Albumin 2.7 L Triglycerides Lipase Arterial Blood Glucose Arterial Blood Ionized Calcium Urine WBC (Auto) Coronavirus (PCR) SARS-CoV-2 IgG Ab Crossmatch 06/07/20 06/08/20 06/08/20 23:18 05:31 12:07 WBC RBC Hgb Hct MCV MCH MCHC RDW Lymph % (Auto) [place] % (Auto) Lymph # (Auto) [place] # (Auto) Baso # (Auto) Seg Neutrophils % Seg Neuts % (Manual) Lymphocytes % (Manual) Nucleated RBC % Seg Neutrophils # Seg Neutrophils # Man Lymphocytes # (Manual) Monocytes # (Manual) Eosinophils # (Manual) PT INR APTT D-Dimer Heparin Anti-Xa Level ABG pH POC ABG pCO2 POC ABG pO2 ABG pO2 ABG HCO3 ABG O2 Saturation ABG Base Excess ABG Hemoglobin ABG Oxyhemoglobin ABG Sodium ABG Potassium ABG Chloride ABG Glucose Oxyhemoglobin Carboxyhemoglobin Sodium Potassium Chloride Carbon Dioxide BUN Creatinine Glucose POC Glucose 214 H 129 H 179 H Lactic Acid Calcium Magnesium Ferritin Total Bilirubin Direct Bilirubin AST ALT Alkaline Phosphatase Lactate Dehydrogenase C-Reactive Protein Total Protein Albumin Triglycerides Lipase Arterial Blood Glucose Arterial Blood Ionized Calcium Urine WBC (Auto) Coronavirus (PCR) SARS-CoV-2 IgG Ab Crossmatch 06/08/20 06/08/20 06/09/20 18:18 23:35 05:42 WBC RBC Hgb Hct MCV MCH MCHC RDW Lymph % (Auto) [place] % (Auto) Lymph # (Auto) [place] # (Auto) Baso # (Auto) Seg Neutrophils % Seg Neuts % (Manual) Lymphocytes % (Manual) Nucleated RBC % Seg Neutrophils # Seg Neutrophils # Man Lymphocytes # (Manual) Monocytes # (Manual) Eosinophils # (Manual) PT INR APTT D-Dimer Heparin Anti-Xa Level ABG pH POC ABG pCO2 POC ABG pO2 ABG pO2 ABG HCO3 ABG O2 Saturation ABG Base Excess ABG Hemoglobin ABG Oxyhemoglobin ABG Sodium ABG Potassium ABG Chloride ABG Glucose Oxyhemoglobin Carboxyhemoglobin Sodium Potassium Chloride Carbon Dioxide BUN Creatinine Glucose POC Glucose 172 H 177 H 137 H Lactic Acid Calcium Magnesium Ferritin Total Bilirubin Direct Bilirubin AST ALT Alkaline Phosphatase Lactate Dehydrogenase C-Reactive Protein Total Protein Albumin Triglycerides Lipase Arterial Blood Glucose Arterial Blood Ionized Calcium Urine WBC (Auto) Coronavirus (PCR) SARS-CoV-2 IgG Ab Crossmatch 06/09/20 06/09/20 06/09/20 06:20 07:55 07:55 WBC 12.4 H RBC 3.26 L Hgb 11.1 L Hct 33.4 L D MCV 102 H MCH 34 H MCHC RDW Lymph % (Auto) [place] % (Auto) Lymph # (Auto) [place] # (Auto) Baso # (Auto) Seg Neutrophils % Seg Neuts % (Manual) Lymphocytes % (Manual) Nucleated RBC % Seg Neutrophils # Seg Neutrophils # Man Lymphocytes # (Manual) Monocytes # (Manual) Eosinophils # (Manual) PT INR APTT D-Dimer Heparin Anti-Xa Level ABG pH 7.466 H POC ABG pCO2 50.7 H POC ABG pO2 53.0 L ABG pO2 ABG HCO3 ABG O2 Saturation ABG Base Excess ABG Hemoglobin ABG Oxyhemoglobin ABG Sodium ABG Potassium 2.9 L ABG Chloride 93.0 L ABG Glucose 138 H Oxyhemoglobin Carboxyhemoglobin Sodium Potassium 3.0 L Chloride 92.3 L Carbon Dioxide 37 H BUN 21 H Creatinine 0.6 L Glucose 120 H POC Glucose Lactic Acid Calcium Magnesium Ferritin Total Bilirubin Direct Bilirubin AST ALT Alkaline Phosphatase Lactate Dehydrogenase C-Reactive Protein Total Protein Albumin Triglycerides Lipase Arterial Blood Glucose 138 H Arterial Blood Ionized Calcium 4.5 L Urine WBC (Auto) Coronavirus (PCR) SARS-CoV-2 IgG Ab Crossmatch 06/09/20 06/09/20 06/10/20 11:22 18:32 04:46 WBC RBC Hgb Hct MCV MCH MCHC RDW Lymph % (Auto) [place] % (Auto) Lymph # (Auto) [place] # (Auto) Baso # (Auto) Seg Neutrophils % Seg Neuts % (Manual) Lymphocytes % (Manual) Nucleated RBC % Seg Neutrophils # Seg Neutrophils # Man Lymphocytes # (Manual) Monocytes # (Manual) Eosinophils # (Manual) PT INR APTT D-Dimer Heparin Anti-Xa Level ABG pH 7.501 H POC ABG pCO2 POC ABG pO2 126.5 H ABG pO2 ABG HCO3 ABG O2 Saturation ABG Base Excess ABG Hemoglobin 10.3 L ABG Oxyhemoglobin ABG Sodium ABG Potassium ABG Chloride ABG Glucose 220 H Oxyhemoglobin Carboxyhemoglobin Sodium Potassium Chloride Carbon Dioxide BUN Creatinine Glucose POC Glucose 117 H 121 H Lactic Acid Calcium Magnesium Ferritin Total Bilirubin Direct Bilirubin AST ALT Alkaline Phosphatase Lactate Dehydrogenase C-Reactive Protein Total Protein Albumin Triglycerides Lipase Arterial Blood Glucose 220 H Arterial Blood Ionized Calcium Urine WBC (Auto) Coronavirus (PCR) SARS-CoV-2 IgG Ab Crossmatch 06/10/20 06/10/20 06/10/20 05:30 09:38 12:03 WBC RBC Hgb Hct MCV MCH MCHC RDW Lymph % (Auto) [place] % (Auto) Lymph # (Auto) [place] # (Auto) Baso # (Auto) Seg Neutrophils % Seg Neuts % (Manual) Lymphocytes % (Manual) Nucleated RBC % Seg Neutrophils # Seg Neutrophils # Man Lymphocytes # (Manual) Monocytes # (Manual) Eosinophils # (Manual) PT INR APTT D-Dimer Heparin Anti-Xa Level ABG pH POC ABG pCO2 POC ABG pO2 ABG pO2 ABG HCO3 ABG O2 Saturation ABG Base Excess ABG Hemoglobin ABG Oxyhemoglobin ABG Sodium ABG Potassium ABG Chloride ABG Glucose Oxyhemoglobin Carboxyhemoglobin Sodium Potassium Chloride Carbon Dioxide BUN Creatinine Glucose POC Glucose 181 H 204 H Lactic Acid Calcium Magnesium Ferritin Total Bilirubin Direct Bilirubin AST ALT Alkaline Phosphatase Lactate Dehydrogenase C-Reactive Protein Total Protein Albumin Triglycerides 738 H Lipase Arterial Blood Glucose Arterial Blood Ionized Calcium Urine WBC (Auto) Coronavirus (PCR) SARS-CoV-2 IgG Ab Crossmatch 06/10/20 06/11/20 06/11/20 17:17 00:04 04:38 WBC RBC Hgb Hct MCV MCH MCHC RDW Lymph % (Auto) [place] % (Auto) Lymph # (Auto) [place] # (Auto) Baso # (Auto) Seg Neutrophils % Seg Neuts % (Manual) Lymphocytes % (Manual) Nucleated RBC % Seg Neutrophils # Seg Neutrophils # Man Lymphocytes # (Manual) Monocytes # (Manual) Eosinophils # (Manual) PT INR APTT D-Dimer Heparin Anti-Xa Level ABG pH 7.479 H POC ABG pCO2 POC ABG pO2 76.7 L ABG pO2 ABG HCO3 ABG O2 Saturation ABG Base Excess ABG Hemoglobin 9.8 L ABG Oxyhemoglobin ABG Sodium 135.8 L ABG Potassium ABG Chloride ABG Glucose 238 H Oxyhemoglobin Carboxyhemoglobin Sodium Potassium Chloride Carbon Dioxide BUN Creatinine Glucose POC Glucose 156 H 178 H Lactic Acid Calcium Magnesium Ferritin Total Bilirubin Direct Bilirubin AST ALT Alkaline Phosphatase Lactate Dehydrogenase C-Reactive Protein Total Protein Albumin Triglycerides Lipase Arterial Blood Glucose 238 H Arterial Blood Ionized Calcium Urine WBC (Auto) Coronavirus (PCR) SARS-CoV-2 IgG Ab Crossmatch 06/11/20 06/11/20 06/11/20 05:21 06:52 11:50 WBC RBC Hgb Hct MCV MCH MCHC RDW Lymph % (Auto) [place] % (Auto) Lymph # (Auto) [place] # (Auto) Baso # (Auto) Seg Neutrophils % Seg Neuts % (Manual) Lymphocytes % (Manual) Nucleated RBC % Seg Neutrophils # Seg Neutrophils # Man Lymphocytes # (Manual) Monocytes # (Manual) Eosinophils # (Manual) PT INR APTT D-Dimer Heparin Anti-Xa Level ABG pH POC ABG pCO2 POC ABG pO2 ABG pO2 ABG HCO3 ABG O2 Saturation ABG Base Excess ABG Hemoglobin ABG Oxyhemoglobin ABG Sodium ABG Potassium ABG Chloride ABG Glucose Oxyhemoglobin Carboxyhemoglobin Sodium Potassium Chloride Carbon Dioxide BUN Creatinine Glucose POC Glucose 215 H 187 H Lactic Acid Calcium Magnesium Ferritin Total Bilirubin Direct Bilirubin AST ALT Alkaline Phosphatase Lactate Dehydrogenase C-Reactive Protein Total Protein Albumin Triglycerides 331 H Lipase Arterial Blood Glucose Arterial Blood Ionized Calcium Urine WBC (Auto) Coronavirus (PCR) SARS-CoV-2 IgG Ab Crossmatch 06/11/20 06/11/20 06/12/20 17:49 23:35 04:52 WBC RBC Hgb Hct MCV MCH MCHC RDW Lymph % (Auto) [place] % (Auto) Lymph # (Auto) [place] # (Auto) Baso # (Auto) Seg Neutrophils % Seg Neuts % (Manual) Lymphocytes % (Manual) Nucleated RBC % Seg Neutrophils # Seg Neutrophils # Man Lymphocytes # (Manual) Monocytes # (Manual) Eosinophils # (Manual) PT INR APTT D-Dimer Heparin Anti-Xa Level ABG pH 7.486 H POC ABG pCO2 POC ABG pO2 ABG pO2 ABG HCO3 ABG O2 Saturation ABG Base Excess ABG Hemoglobin 9.4 L ABG Oxyhemoglobin ABG Sodium ABG Potassium 3.2 L ABG Chloride ABG Glucose 209 H Oxyhemoglobin Carboxyhemoglobin Sodium Potassium Chloride Carbon Dioxide BUN Creatinine Glucose POC Glucose 211 H 200 H Lactic Acid Calcium Magnesium Ferritin Total Bilirubin Direct Bilirubin AST ALT Alkaline Phosphatase Lactate Dehydrogenase C-Reactive Protein Total Protein Albumin Triglycerides Lipase Arterial Blood Glucose 209 H Arterial Blood Ionized Calcium Urine WBC (Auto) Coronavirus (PCR) SARS-CoV-2 IgG Ab Crossmatch 06/12/20 06/12/20 06/12/20 05:13 11:47 18:33 WBC RBC Hgb Hct MCV MCH MCHC RDW Lymph % (Auto) [place] % (Auto) Lymph # (Auto) [place] # (Auto) Baso # (Auto) Seg Neutrophils % Seg Neuts % (Manual) Lymphocytes % (Manual) Nucleated RBC % Seg Neutrophils # Seg Neutrophils # Man Lymphocytes # (Manual) Monocytes # (Manual) Eosinophils # (Manual) PT INR APTT D-Dimer Heparin Anti-Xa Level ABG pH POC ABG pCO2 POC ABG pO2 ABG pO2 ABG HCO3 ABG O2 Saturation ABG Base Excess ABG Hemoglobin ABG Oxyhemoglobin ABG Sodium ABG Potassium ABG Chloride ABG Glucose Oxyhemoglobin Carboxyhemoglobin Sodium Potassium Chloride Carbon Dioxide BUN Creatinine Glucose POC Glucose 174 H 214 H 194 H Lactic Acid Calcium Magnesium Ferritin Total Bilirubin Direct Bilirubin AST ALT Alkaline Phosphatase Lactate Dehydrogenase C-Reactive Protein Total Protein Albumin Triglycerides Lipase Arterial Blood Glucose Arterial Blood Ionized Calcium Urine WBC (Auto) Coronavirus (PCR) SARS-CoV-2 IgG Ab Crossmatch 06/12/20 06/13/20 06/13/20 23:49 05:41 12:30 WBC RBC Hgb Hct MCV MCH MCHC RDW Lymph % (Auto) [place] % (Auto) Lymph # (Auto) [place] # (Auto) Baso # (Auto) Seg Neutrophils % Seg Neuts % (Manual) Lymphocytes % (Manual) Nucleated RBC % Seg Neutrophils # Seg Neutrophils # Man Lymphocytes # (Manual) Monocytes # (Manual) Eosinophils # (Manual) PT INR APTT D-Dimer Heparin Anti-Xa Level ABG pH POC ABG pCO2 POC ABG pO2 ABG pO2 ABG HCO3 ABG O2 Saturation ABG Base Excess ABG Hemoglobin ABG Oxyhemoglobin ABG Sodium ABG Potassium ABG Chloride ABG Glucose Oxyhemoglobin Carboxyhemoglobin Sodium Potassium Chloride Carbon Dioxide BUN Creatinine Glucose POC Glucose 160 H 150 H 181 H Lactic Acid Calcium Magnesium Ferritin Total Bilirubin Direct Bilirubin AST ALT Alkaline Phosphatase Lactate Dehydrogenase C-Reactive Protein Total Protein Albumin Triglycerides Lipase Arterial Blood Glucose Arterial Blood Ionized Calcium Urine WBC (Auto) Coronavirus (PCR) SARS-CoV-2 IgG Ab Crossmatch 06/13/20 06/13/20 06/13/20 14:14 17:48 23:27 WBC 12.8 H RBC 2.33 L Hgb 8.0 L Hct 23.3 L MCV 100 H MCH 34 H MCHC RDW 15.7 H Lymph % (Auto) [place] % (Auto) Lymph # (Auto) [place] # (Auto) Baso # (Auto) Seg Neutrophils % Seg Neuts % (Manual) 85.0 H Lymphocytes % (Manual) 10.0 L Nucleated RBC % Seg Neutrophils # Seg Neutrophils # Man 10.9 H Lymphocytes # (Manual) Monocytes # (Manual) Eosinophils # (Manual) PT INR APTT D-Dimer Heparin Anti-Xa Level ABG pH POC ABG pCO2 POC ABG pO2 ABG pO2 ABG HCO3 ABG O2 Saturation ABG Base Excess ABG Hemoglobin ABG Oxyhemoglobin ABG Sodium ABG Potassium ABG Chloride ABG Glucose Oxyhemoglobin Carboxyhemoglobin Sodium Potassium Chloride Carbon Dioxide BUN Creatinine Glucose POC Glucose 173 H 154 H Lactic Acid Calcium Magnesium Ferritin Total Bilirubin Direct Bilirubin AST ALT Alkaline Phosphatase Lactate Dehydrogenase C-Reactive Protein Total Protein Albumin Triglycerides Lipase Arterial Blood Glucose Arterial Blood Ionized Calcium Urine WBC (Auto) Coronavirus (PCR) SARS-CoV-2 IgG Ab Crossmatch 06/14/20 06/14/20 06/14/20 03:58 05:21 07:15 WBC 26.2 H RBC 2.97 L Hgb 9.7 L Hct 29.9 L D MCV 101 H MCH 33 H MCHC RDW 15.3 H Lymph % (Auto) [place] % (Auto) Lymph # (Auto) [place] # (Auto) Baso # (Auto) Seg Neutrophils % Seg Neuts % (Manual) 79.0 H Lymphocytes % (Manual) 5.0 L Nucleated RBC % 3.0 H Seg Neutrophils # Seg Neutrophils # Man 20.7 H Lymphocytes # (Manual) Monocytes # (Manual) 1.3 H Eosinophils # (Manual) PT INR APTT D-Dimer Heparin Anti-Xa Level ABG pH POC ABG pCO2 51.5 H POC ABG pO2 70.0 L ABG pO2 ABG HCO3 ABG O2 Saturation ABG Base Excess ABG Hemoglobin 10.1 L ABG Oxyhemoglobin ABG Sodium 131.5 L ABG Potassium 3.1 L ABG Chloride 93.0 L ABG Glucose 188 H Oxyhemoglobin Carboxyhemoglobin Sodium Potassium Chloride Carbon Dioxide BUN Creatinine Glucose POC Glucose 147 H Lactic Acid Calcium Magnesium Ferritin Total Bilirubin Direct Bilirubin AST ALT Alkaline Phosphatase Lactate Dehydrogenase C-Reactive Protein Total Protein Albumin Triglycerides Lipase Arterial Blood Glucose 188 H Arterial Blood Ionized Calcium Urine WBC (Auto) Coronavirus (PCR) SARS-CoV-2 IgG Ab Crossmatch 06/14/20 06/14/20 06/14/20 07:15 11:30 11:50 WBC RBC Hgb Hct MCV MCH MCHC RDW Lymph % (Auto) [place] % (Auto) Lymph # (Auto) [place] # (Auto) Baso # (Auto) Seg Neutrophils % Seg Neuts % (Manual) Lymphocytes % (Manual) Nucleated RBC % Seg Neutrophils # Seg Neutrophils # Man Lymphocytes # (Manual) Monocytes # (Manual) Eosinophils # (Manual) PT INR APTT D-Dimer Heparin Anti-Xa Level ABG pH POC ABG pCO2 POC ABG pO2 ABG pO2 ABG HCO3 ABG O2 Saturation ABG Base Excess ABG Hemoglobin ABG Oxyhemoglobin ABG Sodium ABG Potassium ABG Chloride ABG Glucose Oxyhemoglobin Carboxyhemoglobin Sodium 135 L Potassium 3.5 L Chloride 90.4 L Carbon Dioxide 38 H BUN Creatinine 0.5 L Glucose 190 H POC Glucose 176 H Lactic Acid Calcium Magnesium Ferritin 1496.0 H Total Bilirubin Direct Bilirubin AST ALT 81 H Alkaline Phosphatase Lactate Dehydrogenase C-Reactive Protein Total Protein Albumin 2.9 L Triglycerides Lipase Arterial Blood Glucose Arterial Blood Ionized Calcium Urine WBC (Auto) Coronavirus (PCR) SARS-CoV-2 IgG Ab Crossmatch 06/14/20 06/15/20 06/15/20 23:31 04:00 05:00 WBC RBC Hgb Hct MCV MCH MCHC RDW Lymph % (Auto) [place] % (Auto) Lymph # (Auto) [place] # (Auto) Baso # (Auto) Seg Neutrophils % Seg Neuts % (Manual) Lymphocytes % (Manual) Nucleated RBC % Seg Neutrophils # Seg Neutrophils # Man Lymphocytes # (Manual) Monocytes # (Manual) Eosinophils # (Manual) PT INR APTT D-Dimer Heparin Anti-Xa Level ABG pH POC ABG pCO2 POC ABG pO2 ABG pO2 ABG HCO3 ABG O2 Saturation ABG Base Excess ABG Hemoglobin ABG Oxyhemoglobin ABG Sodium ABG Potassium ABG Chloride ABG Glucose Oxyhemoglobin Carboxyhemoglobin Sodium 133 L Potassium Chloride 91.1 L Carbon Dioxide 34 H BUN Creatinine 0.4 L Glucose 159 H POC Glucose 200 H Lactic Acid Calcium Magnesium Ferritin Total Bilirubin 2.00 H Direct Bilirubin AST 47 H ALT 77 H Alkaline Phosphatase Lactate Dehydrogenase C-Reactive Protein Total Protein Albumin 2.6 L Triglycerides 152 H Lipase Arterial Blood Glucose Arterial Blood Ionized Calcium Urine WBC (Auto) Coronavirus (PCR) SARS-CoV-2 IgG Ab Crossmatch 06/15/20 06/15/20 06/15/20 05:35 06:27 11:38 WBC RBC Hgb Hct MCV MCH MCHC RDW Lymph % (Auto) [place] % (Auto) Lymph # (Auto) [place] # (Auto) Baso # (Auto) Seg Neutrophils % Seg Neuts % (Manual) Lymphocytes % (Manual) Nucleated RBC % Seg Neutrophils # Seg Neutrophils # Man Lymphocytes # (Manual) Monocytes # (Manual) Eosinophils # (Manual) PT INR APTT D-Dimer Heparin Anti-Xa Level ABG pH POC ABG pCO2 61.0 H POC ABG pO2 67.9 L ABG pO2 ABG HCO3 ABG O2 Saturation ABG Base Excess ABG Hemoglobin 10.4 L ABG Oxyhemoglobin ABG Sodium 132.7 L ABG Potassium 3.3 L ABG Chloride 92.0 L ABG Glucose 158 H Oxyhemoglobin Carboxyhemoglobin Sodium Potassium Chloride Carbon Dioxide BUN Creatinine Glucose POC Glucose 148 H 197 H Lactic Acid Calcium Magnesium Ferritin Total Bilirubin Direct Bilirubin AST ALT Alkaline Phosphatase Lactate Dehydrogenase C-Reactive Protein Total Protein Albumin Triglycerides Lipase Arterial Blood Glucose 158 H Arterial Blood Ionized Calcium Urine WBC (Auto) Coronavirus (PCR) SARS-CoV-2 IgG Ab Crossmatch 06/15/20 06/15/20 06/16/20 17:29 Unknown 00:01 WBC 20.7 H RBC 2.57 L Hgb 8.9 L Hct 25.8 L MCV 101 H MCH 35 H MCHC 35 H RDW 16.0 H Lymph % (Auto) [place] % (Auto) Lymph # (Auto) [place] # (Auto) Baso # (Auto) Seg Neutrophils % Seg Neuts % (Manual) 83.0 H Lymphocytes % (Manual) 8.0 L Nucleated RBC % Seg Neutrophils # Seg Neutrophils # Man 17.2 H Lymphocytes # (Manual) Monocytes # (Manual) 1.2 H Eosinophils # (Manual) PT INR APTT D-Dimer Heparin Anti-Xa Level ABG pH POC ABG pCO2 POC ABG pO2 ABG pO2 ABG HCO3 ABG O2 Saturation ABG Base Excess ABG Hemoglobin ABG Oxyhemoglobin ABG Sodium ABG Potassium ABG Chloride ABG Glucose Oxyhemoglobin Carboxyhemoglobin Sodium Potassium Chloride Carbon Dioxide BUN Creatinine Glucose POC Glucose 231 H 257 H Lactic Acid Calcium Magnesium Ferritin Total Bilirubin Direct Bilirubin AST ALT Alkaline Phosphatase Lactate Dehydrogenase C-Reactive Protein Total Protein Albumin Triglycerides Lipase Arterial Blood Glucose Arterial Blood Ionized Calcium Urine WBC (Auto) Coronavirus (PCR) SARS-CoV-2 IgG Ab Crossmatch 06/16/20 06/16/20 06/16/20 04:00 04:00 05:22 WBC 13.8 H RBC 2.03 L Hgb 7.6 L Hct 20.7 L MCV 102 H MCH 37 H MCHC 37 H RDW 16.2 H Lymph % (Auto) 4.4 L [place] % (Auto) Lymph # (Auto) 0.6 L [place] # (Auto) Baso # (Auto) Seg Neutrophils % Seg Neuts % (Manual) Lymphocytes % (Manual) Nucleated RBC % Seg Neutrophils # 12.7 H Seg Neutrophils # Man Lymphocytes # (Manual) Monocytes # (Manual) Eosinophils # (Manual) PT INR APTT D-Dimer Heparin Anti-Xa Level ABG pH POC ABG pCO2 POC ABG pO2 ABG pO2 ABG HCO3 ABG O2 Saturation ABG Base Excess ABG Hemoglobin ABG Oxyhemoglobin ABG Sodium ABG Potassium ABG Chloride ABG Glucose Oxyhemoglobin Carboxyhemoglobin Sodium 130 L Potassium Chloride 88.9 L Carbon Dioxide 36 H BUN Creatinine 0.3 L Glucose 276 H POC Glucose 250 H Lactic Acid Calcium Magnesium Ferritin Total Bilirubin Direct Bilirubin AST ALT Alkaline Phosphatase Lactate Dehydrogenase C-Reactive Protein Total Protein Albumin Triglycerides Lipase Arterial Blood Glucose Arterial Blood Ionized Calcium Urine WBC (Auto) Coronavirus (PCR) SARS-CoV-2 IgG Ab Crossmatch 06/16/20 06/16/20 06/17/20 12:44 18:18 00:39 WBC RBC Hgb Hct MCV MCH MCHC RDW Lymph % (Auto) [place] % (Auto) Lymph # (Auto) [place] # (Auto) Baso # (Auto) Seg Neutrophils % Seg Neuts % (Manual) Lymphocytes % (Manual) Nucleated RBC % Seg Neutrophils # Seg Neutrophils # Man Lymphocytes # (Manual) Monocytes # (Manual) Eosinophils # (Manual) PT INR APTT D-Dimer Heparin Anti-Xa Level ABG pH POC ABG pCO2 POC ABG pO2 ABG pO2 ABG HCO3 ABG O2 Saturation ABG Base Excess ABG Hemoglobin ABG Oxyhemoglobin ABG Sodium ABG Potassium ABG Chloride ABG Glucose Oxyhemoglobin Carboxyhemoglobin Sodium Potassium Chloride Carbon Dioxide BUN Creatinine Glucose POC Glucose 279 H 239 H 247 H Lactic Acid Calcium Magnesium Ferritin Total Bilirubin Direct Bilirubin AST ALT Alkaline Phosphatase Lactate Dehydrogenase C-Reactive Protein Total Protein Albumin Triglycerides Lipase Arterial Blood Glucose Arterial Blood Ionized Calcium Urine WBC (Auto) Coronavirus (PCR) SARS-CoV-2 IgG Ab Crossmatch 06/17/20 06/17/20 06/17/20 03:40 04:08 10:54 WBC RBC Hgb Hct MCV MCH MCHC RDW Lymph % (Auto) [place] % (Auto) Lymph # (Auto) [place] # (Auto) Baso # (Auto) Seg Neutrophils % Seg Neuts % (Manual) Lymphocytes % (Manual) Nucleated RBC % Seg Neutrophils # Seg Neutrophils # Man Lymphocytes # (Manual) Monocytes # (Manual) Eosinophils # (Manual) PT INR APTT D-Dimer Heparin Anti-Xa Level ABG pH POC ABG pCO2 65.7 H POC ABG pO2 ABG pO2 ABG HCO3 ABG O2 Saturation ABG Base Excess ABG Hemoglobin 11.9 L ABG Oxyhemoglobin ABG Sodium ABG Potassium ABG Chloride 93.0 L ABG Glucose 244 H Oxyhemoglobin Carboxyhemoglobin Sodium Potassium Chloride Carbon Dioxide BUN Creatinine Glucose POC Glucose 221 H 248 H Lactic Acid Calcium Magnesium Ferritin Total Bilirubin Direct Bilirubin AST ALT Alkaline Phosphatase Lactate Dehydrogenase C-Reactive Protein Total Protein Albumin Triglycerides Lipase Arterial Blood Glucose 244 H Arterial Blood Ionized Calcium Urine WBC (Auto) Coronavirus (PCR) SARS-CoV-2 IgG Ab Crossmatch 06/17/20 06/17/20 06/17/20 17:47 23:11 23:29 WBC RBC Hgb Hct MCV MCH MCHC RDW Lymph % (Auto) [place] % (Auto) Lymph # (Auto) [place] # (Auto) Baso # (Auto) Seg Neutrophils % Seg Neuts % (Manual) Lymphocytes % (Manual) Nucleated RBC % Seg Neutrophils # Seg Neutrophils # Man Lymphocytes # (Manual) Monocytes # (Manual) Eosinophils # (Manual) PT INR APTT D-Dimer Heparin Anti-Xa Level ABG pH POC ABG pCO2 85.2 H POC ABG pO2 48.4 L ABG pO2 ABG HCO3 ABG O2 Saturation ABG Base Excess ABG Hemoglobin 8.0 L ABG Oxyhemoglobin ABG Sodium ABG Potassium ABG Chloride 95.0 L ABG Glucose 292 H Oxyhemoglobin Carboxyhemoglobin Sodium Potassium Chloride Carbon Dioxide BUN Creatinine Glucose POC Glucose 245 H 252 H Lactic Acid Calcium Magnesium Ferritin Total Bilirubin Direct Bilirubin AST ALT Alkaline Phosphatase Lactate Dehydrogenase C-Reactive Protein Total Protein Albumin Triglycerides Lipase Arterial Blood Glucose 292 H Arterial Blood Ionized Calcium Urine WBC (Auto) Coronavirus (PCR) SARS-CoV-2 IgG Ab Crossmatch 06/18/20 06/18/20 06/18/20 03:14 05:34 11:47 WBC RBC Hgb Hct MCV MCH MCHC RDW Lymph % (Auto) [place] % (Auto) Lymph # (Auto) [place] # (Auto) Baso # (Auto) Seg Neutrophils % Seg Neuts % (Manual) Lymphocytes % (Manual) Nucleated RBC % Seg Neutrophils # Seg Neutrophils # Man Lymphocytes # (Manual) Monocytes # (Manual) Eosinophils # (Manual) PT INR APTT D-Dimer Heparin Anti-Xa Level ABG pH POC ABG pCO2 65.4 H POC ABG pO2 160.7 H ABG pO2 ABG HCO3 ABG O2 Saturation ABG Base Excess ABG Hemoglobin 7.8 L ABG Oxyhemoglobin ABG Sodium ABG Potassium ABG Chloride 95.0 L ABG Glucose 251 H Oxyhemoglobin Carboxyhemoglobin Sodium Potassium Chloride Carbon Dioxide BUN Creatinine Glucose POC Glucose 243 H 263 H Lactic Acid Calcium Magnesium Ferritin Total Bilirubin Direct Bilirubin AST ALT Alkaline Phosphatase Lactate Dehydrogenase C-Reactive Protein Total Protein Albumin Triglycerides Lipase Arterial Blood Glucose 251 H Arterial Blood Ionized Calcium Urine WBC (Auto) Coronavirus (PCR) SARS-CoV-2 IgG Ab Crossmatch 06/18/20 06/18/20 06/19/20 17:31 23:33 04:32 WBC RBC Hgb Hct MCV MCH MCHC RDW Lymph % (Auto) [place] % (Auto) Lymph # (Auto) [place] # (Auto) Baso # (Auto) Seg Neutrophils % Seg Neuts % (Manual) Lymphocytes % (Manual) Nucleated RBC % Seg Neutrophils # Seg Neutrophils # Man Lymphocytes # (Manual) Monocytes # (Manual) Eosinophils # (Manual) PT INR APTT D-Dimer Heparin Anti-Xa Level ABG pH POC ABG pCO2 83.1 H POC ABG pO2 65.8 L ABG pO2 ABG HCO3 ABG O2 Saturation ABG Base Excess ABG Hemoglobin 8.9 L ABG Oxyhemoglobin ABG Sodium ABG Potassium ABG Chloride 96.0 L ABG Glucose 297 H Oxyhemoglobin Carboxyhemoglobin Sodium Potassium Chloride Carbon Dioxide BUN Creatinine Glucose POC Glucose 286 H 238 H Lactic Acid Calcium Magnesium Ferritin Total Bilirubin Direct Bilirubin AST ALT Alkaline Phosphatase Lactate Dehydrogenase C-Reactive Protein Total Protein Albumin Triglycerides Lipase Arterial Blood Glucose 297 H Arterial Blood Ionized Calcium Urine WBC (Auto) Coronavirus (PCR) SARS-CoV-2 IgG Ab Crossmatch 06/19/20 06/19/20 06/19/20 05:55 11:20 17:12 WBC RBC Hgb Hct MCV MCH MCHC RDW Lymph % (Auto) [place] % (Auto) Lymph # (Auto) [place] # (Auto) Baso # (Auto) Seg Neutrophils % Seg Neuts % (Manual) Lymphocytes % (Manual) Nucleated RBC % Seg Neutrophils # Seg Neutrophils # Man Lymphocytes # (Manual) Monocytes # (Manual) Eosinophils # (Manual) PT INR APTT D-Dimer Heparin Anti-Xa Level ABG pH POC ABG pCO2 POC ABG pO2 ABG pO2 ABG HCO3 ABG O2 Saturation ABG Base Excess ABG Hemoglobin ABG Oxyhemoglobin ABG Sodium ABG Potassium ABG Chloride ABG Glucose Oxyhemoglobin Carboxyhemoglobin Sodium Potassium Chloride Carbon Dioxide BUN Creatinine Glucose POC Glucose 274 H 282 H 298 H Lactic Acid Calcium Magnesium Ferritin Total Bilirubin Direct Bilirubin AST ALT Alkaline Phosphatase Lactate Dehydrogenase C-Reactive Protein Total Protein Albumin Triglycerides Lipase Arterial Blood Glucose Arterial Blood Ionized Calcium Urine WBC (Auto) Coronavirus (PCR) SARS-CoV-2 IgG Ab Crossmatch 06/19/20 06/20/20 06/20/20 23:08 03:33 06:01 WBC RBC Hgb Hct MCV MCH MCHC RDW Lymph % (Auto) [place] % (Auto) Lymph # (Auto) [place] # (Auto) Baso # (Auto) Seg Neutrophils % Seg Neuts % (Manual) Lymphocytes % (Manual) Nucleated RBC % Seg Neutrophils # Seg Neutrophils # Man Lymphocytes # (Manual) Monocytes # (Manual) Eosinophils # (Manual) PT INR APTT D-Dimer Heparin Anti-Xa Level ABG pH POC ABG pCO2 POC ABG pO2 ABG pO2 69.9 L ABG HCO3 50.8 H ABG O2 Saturation ABG Base Excess 24.2 H ABG Hemoglobin 5.8 L ABG Oxyhemoglobin ABG Sodium ABG Potassium ABG Chloride ABG Glucose Oxyhemoglobin Carboxyhemoglobin Sodium Potassium Chloride Carbon Dioxide BUN Creatinine Glucose POC Glucose 293 H 182 H Lactic Acid Calcium Magnesium Ferritin Total Bilirubin Direct Bilirubin AST ALT Alkaline Phosphatase Lactate Dehydrogenase C-Reactive Protein Total Protein Albumin Triglycerides Lipase Arterial Blood Glucose Arterial Blood Ionized Calcium Urine WBC (Auto) Coronavirus (PCR) SARS-CoV-2 IgG Ab Crossmatch 06/20/20 06/20/20 06/20/20 11:47 17:46 23:37 WBC RBC Hgb Hct MCV MCH MCHC RDW Lymph % (Auto) [place] % (Auto) Lymph # (Auto) [place] # (Auto) Baso # (Auto) Seg Neutrophils % Seg Neuts % (Manual) Lymphocytes % (Manual) Nucleated RBC % Seg Neutrophils # Seg Neutrophils # Man Lymphocytes # (Manual) Monocytes # (Manual) Eosinophils # (Manual) PT INR APTT D-Dimer Heparin Anti-Xa Level ABG pH POC ABG pCO2 POC ABG pO2 ABG pO2 ABG HCO3 ABG O2 Saturation ABG Base Excess ABG Hemoglobin ABG Oxyhemoglobin ABG Sodium ABG Potassium ABG Chloride ABG Glucose Oxyhemoglobin Carboxyhemoglobin Sodium Potassium Chloride Carbon Dioxide BUN Creatinine Glucose POC Glucose 170 H 215 H 256 H Lactic Acid Calcium Magnesium Ferritin Total Bilirubin Direct Bilirubin AST ALT Alkaline Phosphatase Lactate Dehydrogenase C-Reactive Protein Total Protein Albumin Triglycerides Lipase Arterial Blood Glucose Arterial Blood Ionized Calcium Urine WBC (Auto) Coronavirus (PCR) SARS-CoV-2 IgG Ab Crossmatch 06/21/20 06/21/20 06/21/20 04:00 05:14 05:51 WBC RBC Hgb Hct MCV MCH MCHC RDW Lymph % (Auto) [place] % (Auto) Lymph # (Auto) [place] # (Auto) Baso # (Auto) Seg Neutrophils % Seg Neuts % (Manual) Lymphocytes % (Manual) Nucleated RBC % Seg Neutrophils # Seg Neutrophils # Man Lymphocytes # (Manual) Monocytes # (Manual) Eosinophils # (Manual) PT INR APTT D-Dimer Heparin Anti-Xa Level ABG pH 7.474 H POC ABG pCO2 POC ABG pO2 ABG pO2 ABG HCO3 52.1 H ABG O2 Saturation ABG Base Excess 23.3 H ABG Hemoglobin 5.3 L ABG Oxyhemoglobin ABG Sodium ABG Potassium ABG Chloride ABG Glucose Oxyhemoglobin 93.8 L Carboxyhemoglobin Sodium Potassium Chloride Carbon Dioxide BUN Creatinine Glucose POC Glucose 122 H 129 H Lactic Acid Calcium Magnesium Ferritin Total Bilirubin Direct Bilirubin AST ALT Alkaline Phosphatase Lactate Dehydrogenase C-Reactive Protein Total Protein Albumin Triglycerides Lipase Arterial Blood Glucose Arterial Blood Ionized Calcium Urine WBC (Auto) Coronavirus (PCR) SARS-CoV-2 IgG Ab Crossmatch 06/21/20 06/21/20 06/21/20 11:00 11:00 11:42 WBC 14.2 H RBC 1.85 L Hgb 6.2 L Hct 19.5 L* MCV 105 H MCH 34 H MCHC RDW 18.0 H Lymph % (Auto) [place] % (Auto) Lymph # (Auto) [place] # (Auto) Baso # (Auto) Seg Neutrophils % Seg Neuts % (Manual) Lymphocytes % (Manual) Nucleated RBC % Seg Neutrophils # Seg Neutrophils # Man Lymphocytes # (Manual) Monocytes # (Manual) Eosinophils # (Manual) PT INR APTT D-Dimer Heparin Anti-Xa Level ABG pH POC ABG pCO2 POC ABG pO2 ABG pO2 ABG HCO3 ABG O2 Saturation ABG Base Excess ABG Hemoglobin ABG Oxyhemoglobin ABG Sodium ABG Potassium ABG Chloride ABG Glucose Oxyhemoglobin Carboxyhemoglobin Sodium 147 H Potassium Chloride Carbon Dioxide 51 H* BUN 31 H Creatinine 0.5 L Glucose 224 H POC Glucose 217 H Lactic Acid Calcium Magnesium Ferritin Total Bilirubin Direct Bilirubin AST ALT Alkaline Phosphatase Lactate Dehydrogenase C-Reactive Protein Total Protein Albumin Triglycerides Lipase Arterial Blood Glucose Arterial Blood Ionized Calcium Urine WBC (Auto) Coronavirus (PCR) SARS-CoV-2 IgG Ab Crossmatch 06/21/20 06/21/20 06/21/20 14:18 14:30 18:36 WBC RBC Hgb Hct MCV MCH MCHC RDW Lymph % (Auto) [place] % (Auto) Lymph # (Auto) [place] # (Auto) Baso # (Auto) Seg Neutrophils % Seg Neuts % (Manual) Lymphocytes % (Manual) Nucleated RBC % Seg Neutrophils # Seg Neutrophils # Man Lymphocytes # (Manual) Monocytes # (Manual) Eosinophils # (Manual) PT 15.1 H INR 1.19 H APTT D-Dimer Heparin Anti-Xa Level ABG pH POC ABG pCO2 POC ABG pO2 ABG pO2 ABG HCO3 ABG O2 Saturation ABG Base Excess ABG Hemoglobin ABG Oxyhemoglobin ABG Sodium ABG Potassium ABG Chloride ABG Glucose Oxyhemoglobin Carboxyhemoglobin Sodium Potassium Chloride Carbon Dioxide BUN Creatinine Glucose POC Glucose 185 H Lactic Acid Calcium Magnesium Ferritin Total Bilirubin Direct Bilirubin AST ALT Alkaline Phosphatase Lactate Dehydrogenase C-Reactive Protein Total Protein Albumin Triglycerides Lipase Arterial Blood Glucose Arterial Blood Ionized Calcium Urine WBC (Auto) Coronavirus (PCR) SARS-CoV-2 IgG Ab Crossmatch See Detail 06/21/20 06/22/20 06/22/20 21:14 03:50 04:00 WBC RBC Hgb Hct MCV MCH MCHC RDW Lymph % (Auto) [place] % (Auto) Lymph # (Auto) [place] # (Auto) Baso # (Auto) Seg Neutrophils % Seg Neuts % (Manual) Lymphocytes % (Manual) Nucleated RBC % Seg Neutrophils # Seg Neutrophils # Man Lymphocytes # (Manual) Monocytes # (Manual) Eosinophils # (Manual) PT INR APTT D-Dimer Heparin Anti-Xa Level ABG pH 7.451 H POC ABG pCO2 POC ABG pO2 ABG pO2 ABG HCO3 47.5 H ABG O2 Saturation ABG Base Excess 22.0 H ABG Hemoglobin < 5.1 L ABG Oxyhemoglobin ABG Sodium ABG Potassium ABG Chloride ABG Glucose Oxyhemoglobin 94.1 L Carboxyhemoglobin Sodium 149 H Potassium 3.5 L Chloride Carbon Dioxide 42 H* D BUN 34 H Creatinine 0.4 L Glucose 219 H POC Glucose 250 H Lactic Acid Calcium Magnesium Ferritin Total Bilirubin Direct Bilirubin AST ALT Alkaline Phosphatase Lactate Dehydrogenase C-Reactive Protein Total Protein Albumin Triglycerides Lipase Arterial Blood Glucose Arterial Blood Ionized Calcium Urine WBC (Auto) Coronavirus (PCR) SARS-CoV-2 IgG Ab Crossmatch 06/22/20 06/22/20 06/22/20 12:16 14:29 17:56 WBC RBC Hgb Hct MCV MCH MCHC RDW Lymph % (Auto) [place] % (Auto) Lymph # (Auto) [place] # (Auto) Baso # (Auto) Seg Neutrophils % Seg Neuts % (Manual) Lymphocytes % (Manual) Nucleated RBC % Seg Neutrophils # Seg Neutrophils # Man Lymphocytes # (Manual) Monocytes # (Manual) Eosinophils # (Manual) PT 11.8 L INR APTT 23.5 L D-Dimer Heparin Anti-Xa Level ABG pH POC ABG pCO2 POC ABG pO2 ABG pO2 ABG HCO3 ABG O2 Saturation ABG Base Excess ABG Hemoglobin ABG Oxyhemoglobin ABG Sodium ABG Potassium ABG Chloride ABG Glucose Oxyhemoglobin Carboxyhemoglobin Sodium Potassium Chloride Carbon Dioxide BUN Creatinine Glucose POC Glucose 215 H 215 H Lactic Acid Calcium Magnesium Ferritin Total Bilirubin Direct Bilirubin AST ALT Alkaline Phosphatase Lactate Dehydrogenase C-Reactive Protein Total Protein Albumin Triglycerides Lipase Arterial Blood Glucose Arterial Blood Ionized Calcium Urine WBC (Auto) Coronavirus (PCR) SARS-CoV-2 IgG Ab Crossmatch 06/22/20 06/22/20 06/22/20 23:36 23:45 Unknown WBC 14.1 H RBC 2.70 L Hgb 8.9 L 8.9 L Hct 26.9 L 27.2 L D MCV 101 H MCH 33 H MCHC RDW 17.7 H Lymph % (Auto) [place] % (Auto) Lymph # (Auto) [place] # (Auto) Baso # (Auto) Seg Neutrophils % Seg Neuts % (Manual) 92.0 H Lymphocytes % (Manual) 5.0 L Nucleated RBC % Seg Neutrophils # Seg Neutrophils # Man 13.0 H Lymphocytes # (Manual) 0.7 L Monocytes # (Manual) Eosinophils # (Manual) PT INR APTT D-Dimer Heparin Anti-Xa Level ABG pH POC ABG pCO2 POC ABG pO2 ABG pO2 ABG HCO3 ABG O2 Saturation ABG Base Excess ABG Hemoglobin ABG Oxyhemoglobin ABG Sodium ABG Potassium ABG Chloride ABG Glucose Oxyhemoglobin Carboxyhemoglobin Sodium Potassium Chloride Carbon Dioxide BUN Creatinine Glucose POC Glucose 208 H Lactic Acid Calcium Magnesium Ferritin Total Bilirubin Direct Bilirubin AST ALT Alkaline Phosphatase Lactate Dehydrogenase C-Reactive Protein Total Protein Albumin Triglycerides Lipase Arterial Blood Glucose Arterial Blood Ionized Calcium Urine WBC (Auto) Coronavirus (PCR) SARS-CoV-2 IgG Ab Crossmatch 06/23/20 06/23/20 06/23/20 05:17 05:19 06:50 WBC RBC Hgb Hct MCV MCH MCHC RDW Lymph % (Auto) [place] % (Auto) Lymph # (Auto) [place] # (Auto) Baso # (Auto) Seg Neutrophils % Seg Neuts % (Manual) Lymphocytes % (Manual) Nucleated RBC % Seg Neutrophils # Seg Neutrophils # Man Lymphocytes # (Manual) Monocytes # (Manual) Eosinophils # (Manual) PT INR APTT D-Dimer Heparin Anti-Xa Level ABG pH POC ABG pCO2 69.7 H POC ABG pO2 63.3 L ABG pO2 ABG HCO3 ABG O2 Saturation ABG Base Excess ABG Hemoglobin 10.1 L ABG Oxyhemoglobin ABG Sodium ABG Potassium 3.3 L ABG Chloride ABG Glucose 226 H Oxyhemoglobin Carboxyhemoglobin Sodium Potassium 3.0 L Chloride Carbon Dioxide 41 H* BUN 26 H Creatinine 0.4 L Glucose 209 H POC Glucose 200 H Lactic Acid Calcium Magnesium Ferritin Total Bilirubin Direct Bilirubin AST ALT Alkaline Phosphatase Lactate Dehydrogenase C-Reactive Protein Total Protein Albumin 2.9 L Triglycerides Lipase Arterial Blood Glucose 226 H Arterial Blood Ionized Calcium Urine WBC (Auto) Coronavirus (PCR) SARS-CoV-2 IgG Ab Crossmatch 06/23/20 06/23/20 06/23/20 09:41 12:04 18:16 WBC RBC Hgb 9.1 L Hct 28.0 L MCV MCH MCHC RDW Lymph % (Auto) [place] % (Auto) Lymph # (Auto) [place] # (Auto) Baso # (Auto) Seg Neutrophils % Seg Neuts % (Manual) Lymphocytes % (Manual) Nucleated RBC % Seg Neutrophils # Seg Neutrophils # Man Lymphocytes # (Manual) Monocytes # (Manual) Eosinophils # (Manual) PT INR APTT D-Dimer Heparin Anti-Xa Level ABG pH POC ABG pCO2 POC ABG pO2 ABG pO2 ABG HCO3 ABG O2 Saturation ABG Base Excess ABG Hemoglobin ABG Oxyhemoglobin ABG Sodium ABG Potassium ABG Chloride ABG Glucose Oxyhemoglobin Carboxyhemoglobin Sodium Potassium Chloride Carbon Dioxide BUN Creatinine Glucose POC Glucose 146 H 162 H Lactic Acid Calcium Magnesium Ferritin Total Bilirubin Direct Bilirubin AST ALT Alkaline Phosphatase Lactate Dehydrogenase C-Reactive Protein Total Protein Albumin Triglycerides Lipase Arterial Blood Glucose Arterial Blood Ionized Calcium Urine WBC (Auto) Coronavirus (PCR) SARS-CoV-2 IgG Ab Crossmatch 06/23/20 06/23/20 06/24/20 23:24 23:41 02:39 WBC RBC Hgb 8.2 L 8.8 L Hct 24.9 L 26.8 L MCV MCH MCHC RDW Lymph % (Auto) [place] % (Auto) Lymph # (Auto) [place] # (Auto) Baso # (Auto) Seg Neutrophils % Seg Neuts % (Manual) Lymphocytes % (Manual) Nucleated RBC % Seg Neutrophils # Seg Neutrophils # Man Lymphocytes # (Manual) Monocytes # (Manual) Eosinophils # (Manual) PT INR APTT D-Dimer Heparin Anti-Xa Level ABG pH POC ABG pCO2 POC ABG pO2 ABG pO2 ABG HCO3 ABG O2 Saturation ABG Base Excess ABG Hemoglobin ABG Oxyhemoglobin ABG Sodium ABG Potassium ABG Chloride ABG Glucose Oxyhemoglobin Carboxyhemoglobin Sodium Potassium Chloride Carbon Dioxide BUN Creatinine Glucose POC Glucose 248 H Lactic Acid Calcium Magnesium Ferritin Total Bilirubin Direct Bilirubin AST ALT Alkaline Phosphatase Lactate Dehydrogenase C-Reactive Protein Total Protein Albumin Triglycerides Lipase Arterial Blood Glucose Arterial Blood Ionized Calcium Urine WBC (Auto) Coronavirus (PCR) SARS-CoV-2 IgG Ab Crossmatch 06/24/20 06/24/20 06/24/20 02:39 02:45 05:31 WBC RBC Hgb Hct MCV MCH MCHC RDW Lymph % (Auto) [place] % (Auto) Lymph # (Auto) [place] # (Auto) Baso # (Auto) Seg Neutrophils % Seg Neuts % (Manual) Lymphocytes % (Manual) Nucleated RBC % Seg Neutrophils # Seg Neutrophils # Man Lymphocytes # (Manual) Monocytes # (Manual) Eosinophils # (Manual) PT INR APTT D-Dimer Heparin Anti-Xa Level ABG pH POC ABG pCO2 66.9 H POC ABG pO2 109.7 H ABG pO2 ABG HCO3 ABG O2 Saturation ABG Base Excess ABG Hemoglobin 9.7 L ABG Oxyhemoglobin ABG Sodium 135.0 L ABG Potassium ABG Chloride 97.0 L ABG Glucose 277 H Oxyhemoglobin Carboxyhemoglobin Sodium 136 L Potassium Chloride 95.0 L Carbon Dioxide 34 H D BUN 24 H Creatinine 0.3 L Glucose 260 H POC Glucose 164 H Lactic Acid Calcium Magnesium Ferritin Total Bilirubin Direct Bilirubin AST ALT Alkaline Phosphatase Lactate Dehydrogenase C-Reactive Protein Total Protein 5.2 L Albumin 2.6 L Triglycerides Lipase Arterial Blood Glucose 277 H Arterial Blood Ionized Calcium Urine WBC (Auto) Coronavirus (PCR) SARS-CoV-2 IgG Ab Crossmatch 06/24/20 06/24/20 06/24/20 10:00 11:49 17:39 WBC RBC Hgb 8.9 L Hct 26.5 L MCV MCH MCHC RDW Lymph % (Auto) [place] % (Auto) Lymph # (Auto) [place] # (Auto) Baso # (Auto) Seg Neutrophils % Seg Neuts % (Manual) Lymphocytes % (Manual) Nucleated RBC % Seg Neutrophils # Seg Neutrophils # Man Lymphocytes # (Manual) Monocytes # (Manual) Eosinophils # (Manual) PT INR APTT D-Dimer Heparin Anti-Xa Level ABG pH POC ABG pCO2 POC ABG pO2 ABG pO2 ABG HCO3 ABG O2 Saturation ABG Base Excess ABG Hemoglobin ABG Oxyhemoglobin ABG Sodium ABG Potassium ABG Chloride ABG Glucose Oxyhemoglobin Carboxyhemoglobin Sodium Potassium Chloride Carbon Dioxide BUN Creatinine Glucose POC Glucose 198 H 223 H Lactic Acid Calcium Magnesium Ferritin Total Bilirubin Direct Bilirubin AST ALT Alkaline Phosphatase Lactate Dehydrogenase C-Reactive Protein Total Protein Albumin Triglycerides Lipase Arterial Blood Glucose Arterial Blood Ionized Calcium Urine WBC (Auto) Coronavirus (PCR) SARS-CoV-2 IgG Ab Crossmatch 06/24/20 06/25/20 06/25/20 23:56 02:16 04:08 WBC RBC Hgb Hct MCV MCH MCHC RDW Lymph % (Auto) [place] % (Auto) Lymph # (Auto) [place] # (Auto) Baso # (Auto) Seg Neutrophils % Seg Neuts % (Manual) Lymphocytes % (Manual) Nucleated RBC % Seg Neutrophils # Seg Neutrophils # Man Lymphocytes # (Manual) Monocytes # (Manual) Eosinophils # (Manual) PT INR APTT D-Dimer Heparin Anti-Xa Level ABG pH 7.454 H POC ABG pCO2 56.9 H POC ABG pO2 61.0 L ABG pO2 ABG HCO3 ABG O2 Saturation ABG Base Excess ABG Hemoglobin ABG Oxyhemoglobin ABG Sodium 134.3 L ABG Potassium ABG Chloride 92.0 L ABG Glucose 246 H Oxyhemoglobin Carboxyhemoglobin Sodium 134 L Potassium Chloride 89.7 L Carbon Dioxide 36 H BUN Creatinine 0.3 L Glucose 254 H POC Glucose 225 H Lactic Acid Calcium Magnesium Ferritin Total Bilirubin Direct Bilirubin AST ALT Alkaline Phosphatase Lactate Dehydrogenase C-Reactive Protein Total Protein Albumin 2.9 L Triglycerides Lipase Arterial Blood Glucose 246 H Arterial Blood Ionized Calcium Urine WBC (Auto) Coronavirus (PCR) SARS-CoV-2 IgG Ab Crossmatch 06/25/20 06/25/20 06/25/20 05:44 11:35 17:33 WBC RBC Hgb Hct MCV MCH MCHC RDW Lymph % (Auto) [place] % (Auto) Lymph # (Auto) [place] # (Auto) Baso # (Auto) Seg Neutrophils % Seg Neuts % (Manual) Lymphocytes % (Manual) Nucleated RBC % Seg Neutrophils # Seg Neutrophils # Man Lymphocytes # (Manual) Monocytes # (Manual) Eosinophils # (Manual) PT INR APTT D-Dimer Heparin Anti-Xa Level ABG pH POC ABG pCO2 POC ABG pO2 ABG pO2 ABG HCO3 ABG O2 Saturation ABG Base Excess ABG Hemoglobin ABG Oxyhemoglobin ABG Sodium ABG Potassium ABG Chloride ABG Glucose Oxyhemoglobin Carboxyhemoglobin Sodium Potassium Chloride Carbon Dioxide BUN Creatinine Glucose POC Glucose 170 H 175 H 229 H Lactic Acid Calcium Magnesium Ferritin Total Bilirubin Direct Bilirubin AST ALT Alkaline Phosphatase Lactate Dehydrogenase C-Reactive Protein Total Protein Albumin Triglycerides Lipase Arterial Blood Glucose Arterial Blood Ionized Calcium Urine WBC (Auto) Coronavirus (PCR) SARS-CoV-2 IgG Ab Crossmatch 06/25/20 06/26/20 06/26/20 23:55 02:17 02:17 WBC RBC Hgb 10.0 L Hct 30.4 L MCV MCH MCHC RDW Lymph % (Auto) [place] % (Auto) Lymph # (Auto) [place] # (Auto) Baso # (Auto) Seg Neutrophils % Seg Neuts % (Manual) Lymphocytes % (Manual) Nucleated RBC % Seg Neutrophils # Seg Neutrophils # Man Lymphocytes # (Manual) Monocytes # (Manual) Eosinophils # (Manual) PT INR APTT D-Dimer Heparin Anti-Xa Level ABG pH POC ABG pCO2 POC ABG pO2 ABG pO2 ABG HCO3 ABG O2 Saturation ABG Base Excess ABG Hemoglobin ABG Oxyhemoglobin ABG Sodium ABG Potassium ABG Chloride ABG Glucose Oxyhemoglobin Carboxyhemoglobin Sodium 136 L Potassium Chloride 90.1 L Carbon Dioxide 39 H BUN Creatinine 0.2 L Glucose 232 H POC Glucose 192 H Lactic Acid Calcium Magnesium Ferritin Total Bilirubin Direct Bilirubin AST ALT Alkaline Phosphatase Lactate Dehydrogenase C-Reactive Protein Total Protein 6.1 L Albumin 2.9 L Triglycerides Lipase Arterial Blood Glucose Arterial Blood Ionized Calcium Urine WBC (Auto) Coronavirus (PCR) SARS-CoV-2 IgG Ab Crossmatch 06/26/20 06/26/20 06/26/20 04:15 04:49 05:28 WBC RBC Hgb Hct MCV MCH MCHC RDW Lymph % (Auto) [place] % (Auto) Lymph # (Auto) [place] # (Auto) Baso # (Auto) Seg Neutrophils % Seg Neuts % (Manual) Lymphocytes % (Manual) Nucleated RBC % Seg Neutrophils # Seg Neutrophils # Man Lymphocytes # (Manual) Monocytes # (Manual) Eosinophils # (Manual) PT INR APTT D-Dimer Heparin Anti-Xa Level ABG pH 7.453 H POC ABG pCO2 59.6 H POC ABG pO2 ABG pO2 ABG HCO3 ABG O2 Saturation ABG Base Excess ABG Hemoglobin 10.0 L ABG Oxyhemoglobin ABG Sodium 134.2 L ABG Potassium 3.3 L ABG Chloride 92.0 L ABG Glucose 305 H Oxyhemoglobin Carboxyhemoglobin Sodium Potassium Chloride Carbon Dioxide BUN Creatinine Glucose POC Glucose 234 H Lactic Acid Calcium Magnesium Ferritin Total Bilirubin Direct Bilirubin AST ALT Alkaline Phosphatase Lactate Dehydrogenase C-Reactive Protein Total Protein Albumin Triglycerides 203 H Lipase Arterial Blood Glucose 305 H Arterial Blood Ionized Calcium Urine WBC (Auto) Coronavirus (PCR) SARS-CoV-2 IgG Ab Crossmatch 06/26/20 06/26/20 06/26/20 11:58 17:58 21:32 WBC RBC Hgb Hct MCV MCH MCHC RDW Lymph % (Auto) [place] % (Auto) Lymph # (Auto) [place] # (Auto) Baso # (Auto) Seg Neutrophils % Seg Neuts % (Manual) Lymphocytes % (Manual) Nucleated RBC % Seg Neutrophils # Seg Neutrophils # Man Lymphocytes # (Manual) Monocytes # (Manual) Eosinophils # (Manual) PT INR APTT D-Dimer Heparin Anti-Xa Level ABG pH POC ABG pCO2 POC ABG pO2 ABG pO2 ABG HCO3 ABG O2 Saturation ABG Base Excess ABG Hemoglobin ABG Oxyhemoglobin ABG Sodium ABG Potassium ABG Chloride ABG Glucose Oxyhemoglobin Carboxyhemoglobin Sodium Potassium Chloride Carbon Dioxide BUN Creatinine Glucose POC Glucose 198 H 193 H 191 H Lactic Acid Calcium Magnesium Ferritin Total Bilirubin Direct Bilirubin AST ALT Alkaline Phosphatase Lactate Dehydrogenase C-Reactive Protein Total Protein Albumin Triglycerides Lipase Arterial Blood Glucose Arterial Blood Ionized Calcium Urine WBC (Auto) Coronavirus (PCR) SARS-CoV-2 IgG Ab Crossmatch 06/26/20 06/27/20 06/27/20 23:40 04:35 05:32 WBC RBC Hgb Hct MCV MCH MCHC RDW Lymph % (Auto) [place] % (Auto) Lymph # (Auto) [place] # (Auto) Baso # (Auto) Seg Neutrophils % Seg Neuts % (Manual) Lymphocytes % (Manual) Nucleated RBC % Seg Neutrophils # Seg Neutrophils # Man Lymphocytes # (Manual) Monocytes # (Manual) Eosinophils # (Manual) PT INR APTT D-Dimer Heparin Anti-Xa Level ABG pH 7.464 H POC ABG pCO2 60.8 H POC ABG pO2 ABG pO2 ABG HCO3 ABG O2 Saturation ABG Base Excess ABG Hemoglobin 10.1 L ABG Oxyhemoglobin ABG Sodium ABG Potassium 2.9 L ABG Chloride 92.0 L ABG Glucose 298 H Oxyhemoglobin Carboxyhemoglobin Sodium Potassium Chloride Carbon Dioxide BUN Creatinine Glucose POC Glucose 241 H 211 H Lactic Acid Calcium Magnesium Ferritin Total Bilirubin Direct Bilirubin AST ALT Alkaline Phosphatase Lactate Dehydrogenase C-Reactive Protein Total Protein Albumin Triglycerides Lipase Arterial Blood Glucose 298 H Arterial Blood Ionized Calcium Urine WBC (Auto) Coronavirus (PCR) SARS-CoV-2 IgG Ab Crossmatch 06/27/20 06/27/20 06/27/20 12:37 18:08 20:52 WBC RBC Hgb Hct MCV MCH MCHC RDW Lymph % (Auto) [place] % (Auto) Lymph # (Auto) [place] # (Auto) Baso # (Auto) Seg Neutrophils % Seg Neuts % (Manual) Lymphocytes % (Manual) Nucleated RBC % Seg Neutrophils # Seg Neutrophils # Man Lymphocytes # (Manual) Monocytes # (Manual) Eosinophils # (Manual) PT INR APTT D-Dimer Heparin Anti-Xa Level ABG pH POC ABG pCO2 POC ABG pO2 ABG pO2 ABG HCO3 ABG O2 Saturation ABG Base Excess ABG Hemoglobin ABG Oxyhemoglobin ABG Sodium ABG Potassium ABG Chloride ABG Glucose Oxyhemoglobin Carboxyhemoglobin Sodium Potassium Chloride Carbon Dioxide BUN Creatinine Glucose POC Glucose 182 H 197 H 195 H Lactic Acid Calcium Magnesium Ferritin Total Bilirubin Direct Bilirubin AST ALT Alkaline Phosphatase Lactate Dehydrogenase C-Reactive Protein Total Protein Albumin Triglycerides Lipase Arterial Blood Glucose Arterial Blood Ionized Calcium Urine WBC (Auto) Coronavirus (PCR) SARS-CoV-2 IgG Ab Crossmatch 06/27/20 06/28/20 06/28/20 Unknown 04:17 04:50 WBC RBC Hgb Hct MCV MCH MCHC RDW Lymph % (Auto) [place] % (Auto) Lymph # (Auto) [place] # (Auto) Baso # (Auto) Seg Neutrophils % Seg Neuts % (Manual) Lymphocytes % (Manual) Nucleated RBC % Seg Neutrophils # Seg Neutrophils # Man Lymphocytes # (Manual) Monocytes # (Manual) Eosinophils # (Manual) PT INR APTT D-Dimer Heparin Anti-Xa Level ABG pH POC ABG pCO2 58.6 H POC ABG pO2 60.1 L ABG pO2 ABG HCO3 ABG O2 Saturation ABG Base Excess ABG Hemoglobin 10.0 L ABG Oxyhemoglobin ABG Sodium 125.3 L ABG Potassium ABG Chloride 93.0 L ABG Glucose 308 H Oxyhemoglobin Carboxyhemoglobin Sodium Potassium 2.9 L* Chloride 93.4 L Carbon Dioxide 42 H* BUN Creatinine 0.3 L Glucose 211 H POC Glucose 252 H Lactic Acid Calcium 8.1 L Magnesium Ferritin Total Bilirubin Direct Bilirubin AST ALT Alkaline Phosphatase Lactate Dehydrogenase C-Reactive Protein Total Protein 5.1 L Albumin 2.4 L Triglycerides Lipase Arterial Blood Glucose 308 H Arterial Blood Ionized Calcium Urine WBC (Auto) Coronavirus (PCR) SARS-CoV-2 IgG Ab Crossmatch 06/28/20 06/28/20 06/28/20 06:35 06:35 11:36 WBC 18.9 H RBC 2.85 L Hgb 9.5 L Hct 28.4 L MCV 100 H MCH 33 H MCHC RDW 17.3 H Lymph % (Auto) [place] % (Auto) Lymph # (Auto) [place] # (Auto) Baso # (Auto) Seg Neutrophils % 88.6 H Seg Neuts % (Manual) 95.0 H Lymphocytes % (Manual) 1.0 L Nucleated RBC % Seg Neutrophils # 15.9 H Seg Neutrophils # Man 18.0 H Lymphocytes # (Manual) 0.2 L Monocytes # (Manual) Eosinophils # (Manual) PT INR APTT D-Dimer Heparin Anti-Xa Level ABG pH POC ABG pCO2 POC ABG pO2 ABG pO2 ABG HCO3 ABG O2 Saturation ABG Base Excess ABG Hemoglobin ABG Oxyhemoglobin ABG Sodium ABG Potassium ABG Chloride ABG Glucose Oxyhemoglobin Carboxyhemoglobin Sodium Potassium Chloride 94.2 L Carbon Dioxide 38 H BUN Creatinine 0.3 L Glucose 228 H POC Glucose 243 H Lactic Acid Calcium Magnesium Ferritin Total Bilirubin Direct Bilirubin AST ALT Alkaline Phosphatase Lactate Dehydrogenase C-Reactive Protein Total Protein 6.1 L Albumin 2.7 L Triglycerides Lipase Arterial Blood Glucose Arterial Blood Ionized Calcium Urine WBC (Auto) Coronavirus (PCR) SARS-CoV-2 IgG Ab Crossmatch 06/28/20 06/28/20 06/29/20 16:53 21:10 00:06 WBC RBC Hgb Hct MCV MCH MCHC RDW Lymph % (Auto) [place] % (Auto) Lymph # (Auto) [place] # (Auto) Baso # (Auto) Seg Neutrophils % Seg Neuts % (Manual) Lymphocytes % (Manual) Nucleated RBC % Seg Neutrophils # Seg Neutrophils # Man Lymphocytes # (Manual) Monocytes # (Manual) Eosinophils # (Manual) PT INR APTT D-Dimer Heparin Anti-Xa Level ABG pH POC ABG pCO2 POC ABG pO2 ABG pO2 ABG HCO3 ABG O2 Saturation ABG Base Excess ABG Hemoglobin ABG Oxyhemoglobin ABG Sodium ABG Potassium ABG Chloride ABG Glucose Oxyhemoglobin Carboxyhemoglobin Sodium Potassium Chloride Carbon Dioxide BUN Creatinine Glucose POC Glucose 211 H 195 H 200 H Lactic Acid Calcium Magnesium Ferritin Total Bilirubin Direct Bilirubin AST ALT Alkaline Phosphatase Lactate Dehydrogenase C-Reactive Protein Total Protein Albumin Triglycerides Lipase Arterial Blood Glucose Arterial Blood Ionized Calcium Urine WBC (Auto) Coronavirus (PCR) SARS-CoV-2 IgG Ab Crossmatch 06/29/20 06/29/20 06/29/20 03:11 04:00 04:00 WBC 18.8 H RBC 2.82 L Hgb 10.1 L Hct 28.5 L MCV 101 H MCH 36 H MCHC 36 H RDW 17.5 H Lymph % (Auto) 10.7 L [place] % (Auto) Lymph # (Auto) [place] # (Auto) 1.0 H Baso # (Auto) 0.3 H Seg Neutrophils % 82.2 H Seg Neuts % (Manual) Lymphocytes % (Manual) Nucleated RBC % Seg Neutrophils # 15.5 H Seg Neutrophils # Man Lymphocytes # (Manual) Monocytes # (Manual) Eosinophils # (Manual) PT INR APTT D-Dimer Heparin Anti-Xa Level ABG pH POC ABG pCO2 57.5 H POC ABG pO2 69.1 L ABG pO2 ABG HCO3 ABG O2 Saturation ABG Base Excess ABG Hemoglobin 10.2 L ABG Oxyhemoglobin 92.3 L ABG Sodium 130.7 L ABG Potassium 3.2 L ABG Chloride 93.0 L ABG Glucose 228 H Oxyhemoglobin Carboxyhemoglobin Sodium 134 L Potassium 3.3 L Chloride 89.5 L Carbon Dioxide 40 H BUN Creatinine 0.2 L Glucose 190 H POC Glucose Lactic Acid Calcium Magnesium Ferritin Total Bilirubin Direct Bilirubin AST < 5 L ALT < 5 L Alkaline Phosphatase Lactate Dehydrogenase C-Reactive Protein Total Protein 5.9 L Albumin 2.2 L Triglycerides Lipase Arterial Blood Glucose 228 H Arterial Blood Ionized Calcium Urine WBC (Auto) Coronavirus (PCR) SARS-CoV-2 IgG Ab Crossmatch 06/29/20 06/29/20 06/29/20 05:00 05:23 09:36 WBC RBC Hgb Hct MCV MCH MCHC RDW Lymph % (Auto) [place] % (Auto) Lymph # (Auto) [place] # (Auto) Baso # (Auto) Seg Neutrophils % Seg Neuts % (Manual) Lymphocytes % (Manual) Nucleated RBC % Seg Neutrophils # Seg Neutrophils # Man Lymphocytes # (Manual) Monocytes # (Manual) Eosinophils # (Manual) PT INR APTT D-Dimer Heparin Anti-Xa Level ABG pH POC ABG pCO2 POC ABG pO2 ABG pO2 ABG HCO3 ABG O2 Saturation ABG Base Excess ABG Hemoglobin ABG Oxyhemoglobin ABG Sodium ABG Potassium ABG Chloride ABG Glucose Oxyhemoglobin Carboxyhemoglobin Sodium Potassium Chloride Carbon Dioxide BUN Creatinine Glucose POC Glucose 165 H Lactic Acid Calcium Magnesium Ferritin Total Bilirubin Direct Bilirubin AST ALT Alkaline Phosphatase Lactate Dehydrogenase C-Reactive Protein Total Protein Albumin Triglycerides 1544 H 1799 H Lipase Arterial Blood Glucose Arterial Blood Ionized Calcium Urine WBC (Auto) Coronavirus (PCR) SARS-CoV-2 IgG Ab Crossmatch 06/29/20 06/29/20 06/29/20 09:36 12:02 18:00 WBC RBC Hgb Hct MCV MCH MCHC RDW Lymph % (Auto) [place] % (Auto) Lymph # (Auto) [place] # (Auto) Baso # (Auto) Seg Neutrophils % Seg Neuts % (Manual) Lymphocytes % (Manual) Nucleated RBC % Seg Neutrophils # Seg Neutrophils # Man Lymphocytes # (Manual) Monocytes # (Manual) Eosinophils # (Manual) PT INR APTT D-Dimer Heparin Anti-Xa Level ABG pH POC ABG pCO2 POC ABG pO2 ABG pO2 ABG HCO3 ABG O2 Saturation ABG Base Excess ABG Hemoglobin ABG Oxyhemoglobin ABG Sodium ABG Potassium ABG Chloride ABG Glucose Oxyhemoglobin Carboxyhemoglobin Sodium Potassium Chloride Carbon Dioxide BUN Creatinine Glucose POC Glucose 197 H 187 H Lactic Acid Calcium Magnesium Ferritin Total Bilirubin Direct Bilirubin AST ALT Alkaline Phosphatase Lactate Dehydrogenase C-Reactive Protein Total Protein Albumin Triglycerides Lipase 86 H Arterial Blood Glucose Arterial Blood Ionized Calcium Urine WBC (Auto) Coronavirus (PCR) SARS-CoV-2 IgG Ab Crossmatch 06/29/20 06/30/20 06/30/20 23:33 03:46 05:50 WBC RBC Hgb Hct MCV MCH MCHC RDW Lymph % (Auto) [place] % (Auto) Lymph # (Auto) [place] # (Auto) Baso # (Auto) Seg Neutrophils % Seg Neuts % (Manual) Lymphocytes % (Manual) Nucleated RBC % Seg Neutrophils # Seg Neutrophils # Man Lymphocytes # (Manual) Monocytes # (Manual) Eosinophils # (Manual) PT INR APTT D-Dimer Heparin Anti-Xa Level ABG pH 7.466 H POC ABG pCO2 57.3 H POC ABG pO2 66.1 L ABG pO2 ABG HCO3 ABG O2 Saturation ABG Base Excess ABG Hemoglobin 10.2 L ABG Oxyhemoglobin 92.3 L ABG Sodium 134.4 L ABG Potassium 3.2 L ABG Chloride 94.0 L ABG Glucose 178 H Oxyhemoglobin Carboxyhemoglobin Sodium Potassium Chloride Carbon Dioxide BUN Creatinine Glucose POC Glucose 170 H 170 H Lactic Acid Calcium Magnesium Ferritin Total Bilirubin Direct Bilirubin AST ALT Alkaline Phosphatase Lactate Dehydrogenase C-Reactive Protein Total Protein Albumin Triglycerides Lipase Arterial Blood Glucose 178 H Arterial Blood Ionized Calcium Urine WBC (Auto) Coronavirus (PCR) SARS-CoV-2 IgG Ab Crossmatch 06/30/20 06/30/20 06/30/20 07:00 07:00 12:04 WBC 15.6 H RBC 2.91 L Hgb 9.8 L Hct 29.7 L MCV 102 H MCH 34 H MCHC RDW 17.8 H Lymph % (Auto) [place] % (Auto) Lymph # (Auto) [place] # (Auto) Baso # (Auto) Seg Neutrophils % Seg Neuts % (Manual) Lymphocytes % (Manual) 5.0 L Nucleated RBC % Seg Neutrophils # Seg Neutrophils # Man 14.8 H Lymphocytes # (Manual) 0.8 L Monocytes # (Manual) Eosinophils # (Manual) PT INR APTT D-Dimer Heparin Anti-Xa Level ABG pH POC ABG pCO2 POC ABG pO2 ABG pO2 ABG HCO3 ABG O2 Saturation ABG Base Excess ABG Hemoglobin ABG Oxyhemoglobin ABG Sodium ABG Potassium ABG Chloride ABG Glucose Oxyhemoglobin Carboxyhemoglobin Sodium Potassium Chloride 93.3 L Carbon Dioxide 43 H* BUN Creatinine 0.3 L Glucose 260 H POC Glucose 245 H Lactic Acid Calcium Magnesium Ferritin Total Bilirubin Direct Bilirubin AST ALT Alkaline Phosphatase Lactate Dehydrogenase C-Reactive Protein Total Protein Albumin 2.8 L Triglycerides 452 H Lipase Arterial Blood Glucose Arterial Blood Ionized Calcium Urine WBC (Auto) Coronavirus (PCR) SARS-CoV-2 IgG Ab Crossmatch 06/30/20 07/01/20 07/01/20 17:32 00:02 05:02 WBC RBC Hgb Hct MCV MCH MCHC RDW Lymph % (Auto) [place] % (Auto) Lymph # (Auto) [place] # (Auto) Baso # (Auto) Seg Neutrophils % Seg Neuts % (Manual) Lymphocytes % (Manual) Nucleated RBC % Seg Neutrophils # Seg Neutrophils # Man Lymphocytes # (Manual) Monocytes # (Manual) Eosinophils # (Manual) PT INR APTT D-Dimer Heparin Anti-Xa Level ABG pH POC ABG pCO2 58.1 H POC ABG pO2 ABG pO2 ABG HCO3 ABG O2 Saturation ABG Base Excess ABG Hemoglobin 11.2 L ABG Oxyhemoglobin ABG Sodium 132.7 L ABG Potassium ABG Chloride 92.0 L ABG Glucose 238 H Oxyhemoglobin Carboxyhemoglobin Sodium Potassium Chloride Carbon Dioxide BUN Creatinine Glucose POC Glucose 209 H 208 H Lactic Acid Calcium Magnesium Ferritin Total Bilirubin Direct Bilirubin AST ALT Alkaline Phosphatase Lactate Dehydrogenase C-Reactive Protein Total Protein Albumin Triglycerides Lipase Arterial Blood Glucose 238 H Arterial Blood Ionized Calcium Urine WBC (Auto) Coronavirus (PCR) SARS-CoV-2 IgG Ab Crossmatch 07/01/20 07/01/20 07/01/20 06:16 06:41 06:41 WBC 18.1 H RBC 2.33 L Hgb 7.1 L Hct 21.3 L D MCV MCH MCHC RDW Lymph % (Auto) [place] % (Auto) Lymph # (Auto) [place] # (Auto) Baso # (Auto) Seg Neutrophils % Seg Neuts % (Manual) 82.0 H Lymphocytes % (Manual) 7.0 L Nucleated RBC % 1.0 H Seg Neutrophils # Seg Neutrophils # Man 14.8 H Lymphocytes # (Manual) Monocytes # (Manual) 1.1 H Eosinophils # (Manual) 0.5 H PT INR APTT D-Dimer Heparin Anti-Xa Level < 0.10 L ABG pH POC ABG pCO2 POC ABG pO2 ABG pO2 ABG HCO3 ABG O2 Saturation ABG Base Excess ABG Hemoglobin ABG Oxyhemoglobin ABG Sodium ABG Potassium ABG Chloride ABG Glucose Oxyhemoglobin Carboxyhemoglobin Sodium Potassium Chloride Carbon Dioxide BUN Creatinine Glucose POC Glucose 180 H Lactic Acid Calcium Magnesium Ferritin Total Bilirubin Direct Bilirubin AST ALT Alkaline Phosphatase Lactate Dehydrogenase C-Reactive Protein Total Protein Albumin Triglycerides Lipase Arterial Blood Glucose Arterial Blood Ionized Calcium Urine WBC (Auto) Coronavirus (PCR) SARS-CoV-2 IgG Ab Crossmatch 07/01/20 07/01/20 07/01/20 08:11 12:04 16:16 WBC RBC Hgb Hct MCV MCH MCHC RDW Lymph % (Auto) [place] % (Auto) Lymph # (Auto) [place] # (Auto) Baso # (Auto) Seg Neutrophils % Seg Neuts % (Manual) Lymphocytes % (Manual) Nucleated RBC % Seg Neutrophils # Seg Neutrophils # Man Lymphocytes # (Manual) Monocytes # (Manual) Eosinophils # (Manual) PT INR APTT D-Dimer Heparin Anti-Xa Level 1.02 H ABG pH POC ABG pCO2 POC ABG pO2 ABG pO2 ABG HCO3 ABG O2 Saturation ABG Base Excess ABG Hemoglobin ABG Oxyhemoglobin ABG Sodium ABG Potassium ABG Chloride ABG Glucose Oxyhemoglobin Carboxyhemoglobin Sodium 135 L Potassium 3.0 L Chloride 93.1 L Carbon Dioxide 40 H BUN Creatinine 0.3 L Glucose 140 H POC Glucose 223 H Lactic Acid Calcium Magnesium Ferritin Total Bilirubin Direct Bilirubin AST ALT Alkaline Phosphatase Lactate Dehydrogenase C-Reactive Protein Total Protein Albumin Triglycerides Lipase Arterial Blood Glucose Arterial Blood Ionized Calcium Urine WBC (Auto) Coronavirus (PCR) SARS-CoV-2 IgG Ab Crossmatch 07/01/20 07/01/20 07/02/20 17:09 23:19 00:56 WBC RBC Hgb Hct MCV MCH MCHC RDW Lymph % (Auto) [place] % (Auto) Lymph # (Auto) [place] # (Auto) Baso # (Auto) Seg Neutrophils % Seg Neuts % (Manual) Lymphocytes % (Manual) Nucleated RBC % Seg Neutrophils # Seg Neutrophils # Man Lymphocytes # (Manual) Monocytes # (Manual) Eosinophils # (Manual) PT INR APTT D-Dimer Heparin Anti-Xa Level 0.22 L ABG pH POC ABG pCO2 POC ABG pO2 ABG pO2 ABG HCO3 ABG O2 Saturation ABG Base Excess ABG Hemoglobin ABG Oxyhemoglobin ABG Sodium ABG Potassium ABG Chloride ABG Glucose Oxyhemoglobin Carboxyhemoglobin Sodium Potassium Chloride Carbon Dioxide BUN Creatinine Glucose POC Glucose 233 H 255 H Lactic Acid Calcium Magnesium Ferritin Total Bilirubin Direct Bilirubin AST ALT Alkaline Phosphatase Lactate Dehydrogenase C-Reactive Protein Total Protein Albumin Triglycerides Lipase Arterial Blood Glucose Arterial Blood Ionized Calcium Urine WBC (Auto) Coronavirus (PCR) SARS-CoV-2 IgG Ab Crossmatch 07/02/20 07/02/20 07/02/20 03:51 05:35 11:39 WBC RBC Hgb Hct MCV MCH MCHC RDW Lymph % (Auto) [place] % (Auto) Lymph # (Auto) [place] # (Auto) Baso # (Auto) Seg Neutrophils % Seg Neuts % (Manual) Lymphocytes % (Manual) Nucleated RBC % Seg Neutrophils # Seg Neutrophils # Man Lymphocytes # (Manual) Monocytes # (Manual) Eosinophils # (Manual) PT INR APTT D-Dimer Heparin Anti-Xa Level ABG pH POC ABG pCO2 54.9 H POC ABG pO2 52.1 L ABG pO2 ABG HCO3 ABG O2 Saturation ABG Base Excess ABG Hemoglobin 11.9 L ABG Oxyhemoglobin 82.8 L ABG Sodium 130.2 L ABG Potassium ABG Chloride 92.0 L ABG Glucose 249 H Oxyhemoglobin Carboxyhemoglobin 1.9 H Sodium Potassium Chloride Carbon Dioxide BUN Creatinine Glucose POC Glucose 205 H 235 H Lactic Acid Calcium Magnesium Ferritin Total Bilirubin Direct Bilirubin AST ALT Alkaline Phosphatase Lactate Dehydrogenase C-Reactive Protein Total Protein Albumin Triglycerides Lipase Arterial Blood Glucose 249 H Arterial Blood Ionized Calcium Urine WBC (Auto) Coronavirus (PCR) SARS-CoV-2 IgG Ab Crossmatch 07/02/20 07/02/20 07/02/20 16:08 16:08 17:54 WBC 19.8 H RBC 3.28 L Hgb 10.7 L D Hct 32.7 L D MCV 100 H MCH 33 H MCHC RDW 17.2 H Lymph % (Auto) [place] % (Auto) Lymph # (Auto) [place] # (Auto) Baso # (Auto) Seg Neutrophils % Seg Neuts % (Manual) Lymphocytes % (Manual) Nucleated RBC % Seg Neutrophils # Seg Neutrophils # Man Lymphocytes # (Manual) Monocytes # (Manual) Eosinophils # (Manual) PT INR APTT D-Dimer Heparin Anti-Xa Level ABG pH POC ABG pCO2 POC ABG pO2 ABG pO2 ABG HCO3 ABG O2 Saturation ABG Base Excess ABG Hemoglobin ABG Oxyhemoglobin ABG Sodium ABG Potassium ABG Chloride ABG Glucose Oxyhemoglobin Carboxyhemoglobin Sodium 136 L Potassium Chloride 92.4 L Carbon Dioxide 35 H BUN Creatinine 0.3 L Glucose 203 H POC Glucose 175 H Lactic Acid Calcium Magnesium Ferritin Total Bilirubin Direct Bilirubin AST ALT Alkaline Phosphatase Lactate Dehydrogenase C-Reactive Protein Total Protein Albumin Triglycerides Lipase Arterial Blood Glucose Arterial Blood Ionized Calcium Urine WBC (Auto) Coronavirus (PCR) SARS-CoV-2 IgG Ab Crossmatch 07/02/20 07/03/20 07/03/20 23:46 03:25 05:54 WBC RBC Hgb Hct MCV MCH MCHC RDW Lymph % (Auto) [place] % (Auto) Lymph # (Auto) [place] # (Auto) Baso # (Auto) Seg Neutrophils % Seg Neuts % (Manual) Lymphocytes % (Manual) Nucleated RBC % Seg Neutrophils # Seg Neutrophils # Man Lymphocytes # (Manual) Monocytes # (Manual) Eosinophils # (Manual) PT INR APTT D-Dimer Heparin Anti-Xa Level ABG pH 7.468 H POC ABG pCO2 51.5 H POC ABG pO2 ABG pO2 ABG HCO3 ABG O2 Saturation ABG Base Excess ABG Hemoglobin ABG Oxyhemoglobin ABG Sodium 130.2 L ABG Potassium ABG Chloride 91.0 L ABG Glucose 210 H Oxyhemoglobin Carboxyhemoglobin 1.6 H Sodium Potassium Chloride Carbon Dioxide BUN Creatinine Glucose POC Glucose 173 H 125 H Lactic Acid Calcium Magnesium Ferritin Total Bilirubin Direct Bilirubin AST ALT Alkaline Phosphatase Lactate Dehydrogenase C-Reactive Protein Total Protein Albumin Triglycerides Lipase Arterial Blood Glucose 210 H Arterial Blood Ionized Calcium Urine WBC (Auto) Coronavirus (PCR) SARS-CoV-2 IgG Ab Crossmatch 07/03/20 07/03/20 07/03/20 11:43 12:20 12:20 WBC 16.5 H RBC 3.13 L Hgb 10.4 L Hct 31.8 L MCV 102 H MCH 33 H MCHC RDW 17.2 H Lymph % (Auto) [place] % (Auto) Lymph # (Auto) [place] # (Auto) Baso # (Auto) Seg Neutrophils % Seg Neuts % (Manual) Lymphocytes % (Manual) Nucleated RBC % Seg Neutrophils # Seg Neutrophils # Man Lymphocytes # (Manual) Monocytes # (Manual) Eosinophils # (Manual) PT INR APTT D-Dimer Heparin Anti-Xa Level ABG pH POC ABG pCO2 POC ABG pO2 ABG pO2 ABG HCO3 ABG O2 Saturation ABG Base Excess ABG Hemoglobin ABG Oxyhemoglobin ABG Sodium ABG Potassium ABG Chloride ABG Glucose Oxyhemoglobin Carboxyhemoglobin Sodium 132 L Potassium Chloride 88.5 L Carbon Dioxide 37 H BUN Creatinine 0.3 L Glucose 230 H POC Glucose 223 H Lactic Acid Calcium Magnesium Ferritin Total Bilirubin Direct Bilirubin AST ALT Alkaline Phosphatase Lactate Dehydrogenase C-Reactive Protein Total Protein Albumin Triglycerides Lipase Arterial Blood Glucose Arterial Blood Ionized Calcium Urine WBC (Auto) Coronavirus (PCR) SARS-CoV-2 IgG Ab Crossmatch 07/03/20 07/03/20 07/04/20 17:24 21:41 00:54 WBC RBC Hgb Hct MCV MCH MCHC RDW Lymph % (Auto) [place] % (Auto) Lymph # (Auto) [place] # (Auto) Baso # (Auto) Seg Neutrophils % Seg Neuts % (Manual) Lymphocytes % (Manual) Nucleated RBC % Seg Neutrophils # Seg Neutrophils # Man Lymphocytes # (Manual) Monocytes # (Manual) Eosinophils # (Manual) PT INR APTT D-Dimer Heparin Anti-Xa Level ABG pH POC ABG pCO2 POC ABG pO2 ABG pO2 ABG HCO3 ABG O2 Saturation ABG Base Excess ABG Hemoglobin ABG Oxyhemoglobin ABG Sodium ABG Potassium ABG Chloride ABG Glucose Oxyhemoglobin Carboxyhemoglobin Sodium Potassium Chloride Carbon Dioxide BUN Creatinine Glucose POC Glucose 163 H 220 H 195 H Lactic Acid Calcium Magnesium Ferritin Total Bilirubin Direct Bilirubin AST ALT Alkaline Phosphatase Lactate Dehydrogenase C-Reactive Protein Total Protein Albumin Triglycerides Lipase Arterial Blood Glucose Arterial Blood Ionized Calcium Urine WBC (Auto) Coronavirus (PCR) SARS-CoV-2 IgG Ab Crossmatch 07/04/20 07/04/20 07/04/20 03:25 04:00 04:00 WBC 14.9 H RBC 2.91 L Hgb 9.5 L Hct 29.2 L MCV 100 H MCH 33 H MCHC RDW 16.7 H Lymph % (Auto) 8.4 L [place] % (Auto) Lymph # (Auto) [place] # (Auto) 1.1 H Baso # (Auto) Seg Neutrophils % 84.2 H Seg Neuts % (Manual) Lymphocytes % (Manual) Nucleated RBC % Seg Neutrophils # 12.6 H Seg Neutrophils # Man Lymphocytes # (Manual) Monocytes # (Manual) Eosinophils # (Manual) PT INR APTT D-Dimer Heparin Anti-Xa Level ABG pH 7.474 H POC ABG pCO2 POC ABG pO2 51.8 L ABG pO2 ABG HCO3 ABG O2 Saturation ABG Base Excess ABG Hemoglobin ABG Oxyhemoglobin ABG Sodium ABG Potassium ABG Chloride ABG Glucose Oxyhemoglobin Carboxyhemoglobin Sodium Potassium 3.4 L Chloride 92.1 L Carbon Dioxide 34 H BUN Creatinine 0.3 L Glucose 173 H POC Glucose Lactic Acid Calcium Magnesium Ferritin Total Bilirubin Direct Bilirubin AST ALT Alkaline Phosphatase Lactate Dehydrogenase C-Reactive Protein Total Protein Albumin Triglycerides Lipase Arterial Blood Glucose Arterial Blood Ionized Calcium Urine WBC (Auto) Coronavirus (PCR) SARS-CoV-2 IgG Ab Crossmatch 07/04/20 07/04/20 07/04/20 06:18 11:39 17:18 WBC RBC Hgb Hct MCV MCH MCHC RDW Lymph % (Auto) [place] % (Auto) Lymph # (Auto) [place] # (Auto) Baso # (Auto) Seg Neutrophils % Seg Neuts % (Manual) Lymphocytes % (Manual) Nucleated RBC % Seg Neutrophils # Seg Neutrophils # Man Lymphocytes # (Manual) Monocytes # (Manual) Eosinophils # (Manual) PT INR APTT D-Dimer Heparin Anti-Xa Level ABG pH POC ABG pCO2 POC ABG pO2 ABG pO2 ABG HCO3 ABG O2 Saturation ABG Base Excess ABG Hemoglobin ABG Oxyhemoglobin ABG Sodium ABG Potassium ABG Chloride ABG Glucose Oxyhemoglobin Carboxyhemoglobin Sodium Potassium Chloride Carbon Dioxide BUN Creatinine Glucose POC Glucose 158 H 257 H 148 H Lactic Acid Calcium Magnesium Ferritin Total Bilirubin Direct Bilirubin AST ALT Alkaline Phosphatase Lactate Dehydrogenase C-Reactive Protein Total Protein Albumin Triglycerides Lipase Arterial Blood Glucose Arterial Blood Ionized Calcium Urine WBC (Auto) Coronavirus (PCR) SARS-CoV-2 IgG Ab Crossmatch 07/04/20 07/05/20 07/05/20 23:23 03:13 05:18 WBC 13.3 H RBC 2.90 L Hgb 9.8 L Hct 29.3 L MCV 101 H MCH 34 H MCHC RDW 17.0 H Lymph % (Auto) 11.1 L [place] % (Auto) Lymph # (Auto) [place] # (Auto) Baso # (Auto) Seg Neutrophils % 82.3 H Seg Neuts % (Manual) Lymphocytes % (Manual) Nucleated RBC % Seg Neutrophils # 10.9 H Seg Neutrophils # Man Lymphocytes # (Manual) Monocytes # (Manual) Eosinophils # (Manual) PT INR APTT D-Dimer Heparin Anti-Xa Level ABG pH 7.48 H POC ABG pCO2 52.0 H POC ABG pO2 ABG pO2 ABG HCO3 ABG O2 Saturation ABG Base Excess ABG Hemoglobin 10.0 L ABG Oxyhemoglobin ABG Sodium 131.0 L ABG Potassium 3.3 L ABG Chloride 93.0 L ABG Glucose 177 H Oxyhemoglobin Carboxyhemoglobin Sodium Potassium Chloride Carbon Dioxide BUN Creatinine Glucose POC Glucose 227 H Lactic Acid Calcium Magnesium Ferritin Total Bilirubin Direct Bilirubin AST ALT Alkaline Phosphatase Lactate Dehydrogenase C-Reactive Protein Total Protein Albumin Triglycerides Lipase Arterial Blood Glucose 177 H Arterial Blood Ionized Calcium Urine WBC (Auto) Coronavirus (PCR) SARS-CoV-2 IgG Ab Crossmatch 07/05/20 07/05/20 07/05/20 05:18 05:25 05:57 WBC RBC Hgb Hct MCV MCH MCHC RDW Lymph % (Auto) [place] % (Auto) Lymph # (Auto) [place] # (Auto) Baso # (Auto) Seg Neutrophils % Seg Neuts % (Manual) Lymphocytes % (Manual) Nucleated RBC % Seg Neutrophils # Seg Neutrophils # Man Lymphocytes # (Manual) Monocytes # (Manual) Eosinophils # (Manual) PT INR APTT D-Dimer Heparin Anti-Xa Level ABG pH 7.519 H POC ABG pCO2 POC ABG pO2 198.6 H ABG pO2 ABG HCO3 ABG O2 Saturation ABG Base Excess ABG Hemoglobin 10.3 L ABG Oxyhemoglobin 98.7 H ABG Sodium 133.6 L ABG Potassium 3.3 L ABG Chloride 93.0 L ABG Glucose 175 H Oxyhemoglobin Carboxyhemoglobin Sodium Potassium 3.4 L Chloride 92.5 L Carbon Dioxide 36 H BUN Creatinine 0.3 L Glucose 148 H POC Glucose 170 H Lactic Acid Calcium Magnesium Ferritin Total Bilirubin Direct Bilirubin AST ALT Alkaline Phosphatase Lactate Dehydrogenase C-Reactive Protein Total Protein Albumin Triglycerides Lipase Arterial Blood Glucose 175 H Arterial Blood Ionized Calcium Urine WBC (Auto) Coronavirus (PCR) SARS-CoV-2 IgG Ab Crossmatch 07/05/20 07/05/20 07/06/20 11:37 18:39 00:04 WBC RBC Hgb Hct MCV MCH MCHC RDW Lymph % (Auto) [place] % (Auto) Lymph # (Auto) [place] # (Auto) Baso # (Auto) Seg Neutrophils % Seg Neuts % (Manual) Lymphocytes % (Manual) Nucleated RBC % Seg Neutrophils # Seg Neutrophils # Man Lymphocytes # (Manual) Monocytes # (Manual) Eosinophils # (Manual) PT INR APTT D-Dimer Heparin Anti-Xa Level ABG pH POC ABG pCO2 POC ABG pO2 ABG pO2 ABG HCO3 ABG O2 Saturation ABG Base Excess ABG Hemoglobin ABG Oxyhemoglobin ABG Sodium ABG Potassium ABG Chloride ABG Glucose Oxyhemoglobin Carboxyhemoglobin Sodium Potassium Chloride Carbon Dioxide BUN Creatinine Glucose POC Glucose 195 H 200 H 222 H Lactic Acid Calcium Magnesium Ferritin Total Bilirubin Direct Bilirubin AST ALT Alkaline Phosphatase Lactate Dehydrogenase C-Reactive Protein Total Protein Albumin Triglycerides Lipase Arterial Blood Glucose Arterial Blood Ionized Calcium Urine WBC (Auto) Coronavirus (PCR) SARS-CoV-2 IgG Ab Crossmatch 07/06/20 07/06/20 07/06/20 05:25 06:52 06:52 WBC 15.8 H RBC 3.17 L Hgb 10.4 L Hct 31.5 L MCV 99 H MCH 33 H MCHC RDW 17.0 H Lymph % (Auto) [place] % (Auto) Lymph # (Auto) [place] # (Auto) Baso # (Auto) Seg Neutrophils % Seg Neuts % (Manual) Lymphocytes % (Manual) Nucleated RBC % Seg Neutrophils # Seg Neutrophils # Man Lymphocytes # (Manual) Monocytes # (Manual) Eosinophils # (Manual) PT INR APTT D-Dimer Heparin Anti-Xa Level ABG pH POC ABG pCO2 POC ABG pO2 ABG pO2 ABG HCO3 ABG O2 Saturation ABG Base Excess ABG Hemoglobin ABG Oxyhemoglobin ABG Sodium ABG Potassium ABG Chloride ABG Glucose Oxyhemoglobin Carboxyhemoglobin Sodium 135 L Potassium 3.4 L Chloride 91.9 L Carbon Dioxide 38 H BUN Creatinine 0.3 L Glucose 189 H POC Glucose 165 H Lactic Acid Calcium Magnesium Ferritin Total Bilirubin Direct Bilirubin AST ALT Alkaline Phosphatase Lactate Dehydrogenase C-Reactive Protein Total Protein Albumin Triglycerides Lipase Arterial Blood Glucose Arterial Blood Ionized Calcium Urine WBC (Auto) Coronavirus (PCR) SARS-CoV-2 IgG Ab Crossmatch 07/06/20 07/06/20 07/06/20 13:01 18:04 23:08 WBC RBC Hgb Hct MCV MCH MCHC RDW Lymph % (Auto) [place] % (Auto) Lymph # (Auto) [place] # (Auto) Baso # (Auto) Seg Neutrophils % Seg Neuts % (Manual) Lymphocytes % (Manual) Nucleated RBC % Seg Neutrophils # Seg Neutrophils # Man Lymphocytes # (Manual) Monocytes # (Manual) Eosinophils # (Manual) PT INR APTT D-Dimer Heparin Anti-Xa Level ABG pH POC ABG pCO2 POC ABG pO2 ABG pO2 ABG HCO3 ABG O2 Saturation ABG Base Excess ABG Hemoglobin ABG Oxyhemoglobin ABG Sodium ABG Potassium ABG Chloride ABG Glucose Oxyhemoglobin Carboxyhemoglobin Sodium Potassium Chloride Carbon Dioxide BUN Creatinine Glucose POC Glucose 195 H 169 H 173 H Lactic Acid Calcium Magnesium Ferritin Total Bilirubin Direct Bilirubin AST ALT Alkaline Phosphatase Lactate Dehydrogenase C-Reactive Protein Total Protein Albumin Triglycerides Lipase Arterial Blood Glucose Arterial Blood Ionized Calcium Urine WBC (Auto) Coronavirus (PCR) SARS-CoV-2 IgG Ab Crossmatch 07/07/20 07/07/20 07/07/20 05:35 05:35 05:39 WBC 17.6 H RBC 3.16 L Hgb 10.4 L Hct 31.5 L MCV 100 H MCH 33 H MCHC RDW 16.7 H Lymph % (Auto) 11.1 L [place] % (Auto) Lymph # (Auto) [place] # (Auto) 1.0 H Baso # (Auto) Seg Neutrophils % 83.0 H Seg Neuts % (Manual) Lymphocytes % (Manual) Nucleated RBC % Seg Neutrophils # 14.6 H Seg Neutrophils # Man Lymphocytes # (Manual) Monocytes # (Manual) Eosinophils # (Manual) PT INR APTT D-Dimer Heparin Anti-Xa Level ABG pH POC ABG pCO2 POC ABG pO2 ABG pO2 ABG HCO3 ABG O2 Saturation ABG Base Excess ABG Hemoglobin ABG Oxyhemoglobin ABG Sodium ABG Potassium ABG Chloride ABG Glucose Oxyhemoglobin Carboxyhemoglobin Sodium 135 L Potassium 3.4 L Chloride 94.3 L Carbon Dioxide 32 H BUN Creatinine 0.2 L Glucose 240 H POC Glucose 191 H Lactic Acid Calcium Magnesium Ferritin Total Bilirubin Direct Bilirubin AST ALT Alkaline Phosphatase Lactate Dehydrogenase C-Reactive Protein Total Protein Albumin Triglycerides Lipase Arterial Blood Glucose Arterial Blood Ionized Calcium Urine WBC (Auto) Coronavirus (PCR) SARS-CoV-2 IgG Ab Crossmatch 07/07/20 07/07/20 07/07/20 12:08 16:39 23:41 WBC RBC Hgb Hct MCV MCH MCHC RDW Lymph % (Auto) [place] % (Auto) Lymph # (Auto) [place] # (Auto) Baso # (Auto) Seg Neutrophils % Seg Neuts % (Manual) Lymphocytes % (Manual) Nucleated RBC % Seg Neutrophils # Seg Neutrophils # Man Lymphocytes # (Manual) Monocytes # (Manual) Eosinophils # (Manual) PT INR APTT D-Dimer Heparin Anti-Xa Level ABG pH POC ABG pCO2 POC ABG pO2 ABG pO2 ABG HCO3 ABG O2 Saturation ABG Base Excess ABG Hemoglobin ABG Oxyhemoglobin ABG Sodium ABG Potassium ABG Chloride ABG Glucose Oxyhemoglobin Carboxyhemoglobin Sodium Potassium Chloride Carbon Dioxide BUN Creatinine Glucose POC Glucose 248 H 209 H 231 H Lactic Acid Calcium Magnesium Ferritin Total Bilirubin Direct Bilirubin AST ALT Alkaline Phosphatase Lactate Dehydrogenase C-Reactive Protein Total Protein Albumin Triglycerides Lipase Arterial Blood Glucose Arterial Blood Ionized Calcium Urine WBC (Auto) Coronavirus (PCR) SARS-CoV-2 IgG Ab Crossmatch 07/08/20 07/08/20 07/08/20 04:58 04:58 05:38 WBC 21.0 H RBC 2.86 L Hgb 9.2 L Hct 28.6 L MCV 100 H MCH MCHC RDW 16.7 H Lymph % (Auto) [place] % (Auto) Lymph # (Auto) [place] # (Auto) Baso # (Auto) Seg Neutrophils % Seg Neuts % (Manual) 93.0 H Lymphocytes % (Manual) 3.0 L Nucleated RBC % Seg Neutrophils # Seg Neutrophils # Man 19.5 H Lymphocytes # (Manual) 0.6 L Monocytes # (Manual) Eosinophils # (Manual) PT INR APTT D-Dimer Heparin Anti-Xa Level ABG pH POC ABG pCO2 POC ABG pO2 ABG pO2 ABG HCO3 ABG O2 Saturation ABG Base Excess ABG Hemoglobin ABG Oxyhemoglobin ABG Sodium ABG Potassium ABG Chloride ABG Glucose Oxyhemoglobin Carboxyhemoglobin Sodium Potassium 3.0 L Chloride Carbon Dioxide BUN Creatinine 0.2 L Glucose 201 H POC Glucose 161 H Lactic Acid Calcium 7.9 L D Magnesium Ferritin Total Bilirubin Direct Bilirubin AST ALT Alkaline Phosphatase Lactate Dehydrogenase C-Reactive Protein Total Protein Albumin Triglycerides Lipase Arterial Blood Glucose Arterial Blood Ionized Calcium Urine WBC (Auto) Coronavirus (PCR) SARS-CoV-2 IgG Ab Crossmatch 07/08/20 07/08/20 07/08/20 12:19 16:26 Unknown WBC RBC Hgb Hct MCV MCH MCHC RDW Lymph % (Auto) [place] % (Auto) Lymph # (Auto) [place] # (Auto) Baso # (Auto) Seg Neutrophils % Seg Neuts % (Manual) Lymphocytes % (Manual) Nucleated RBC % Seg Neutrophils # Seg Neutrophils # Man Lymphocytes # (Manual) Monocytes # (Manual) Eosinophils # (Manual) PT INR APTT D-Dimer Heparin Anti-Xa Level ABG pH POC ABG pCO2 POC ABG pO2 ABG pO2 75.3 L ABG HCO3 34.3 H ABG O2 Saturation ABG Base Excess 8.7 H ABG Hemoglobin 10.2 L ABG Oxyhemoglobin ABG Sodium ABG Potassium ABG Chloride ABG Glucose Oxyhemoglobin 93.7 L Carboxyhemoglobin Sodium Potassium Chloride Carbon Dioxide BUN Creatinine Glucose POC Glucose 152 H 173 H Lactic Acid Calcium Magnesium Ferritin Total Bilirubin Direct Bilirubin AST ALT Alkaline Phosphatase Lactate Dehydrogenase C-Reactive Protein Total Protein Albumin Triglycerides Lipase Arterial Blood Glucose Arterial Blood Ionized Calcium Urine WBC (Auto) Coronavirus (PCR) SARS-CoV-2 IgG Ab Crossmatch 07/09/20 07/09/20 07/09/20 00:01 06:00 11:55 WBC RBC Hgb Hct MCV MCH MCHC RDW Lymph % (Auto) [place] % (Auto) Lymph # (Auto) [place] # (Auto) Baso # (Auto) Seg Neutrophils % Seg Neuts % (Manual) Lymphocytes % (Manual) Nucleated RBC % Seg Neutrophils # Seg Neutrophils # Man Lymphocytes # (Manual) Monocytes # (Manual) Eosinophils # (Manual) PT INR APTT D-Dimer Heparin Anti-Xa Level ABG pH POC ABG pCO2 POC ABG pO2 ABG pO2 ABG HCO3 ABG O2 Saturation ABG Base Excess ABG Hemoglobin ABG Oxyhemoglobin ABG Sodium ABG Potassium ABG Chloride ABG Glucose Oxyhemoglobin Carboxyhemoglobin Sodium Potassium Chloride Carbon Dioxide BUN Creatinine Glucose POC Glucose 207 H 141 H 228 H Lactic Acid Calcium Magnesium Ferritin Total Bilirubin Direct Bilirubin AST ALT Alkaline Phosphatase Lactate Dehydrogenase C-Reactive Protein Total Protein Albumin Triglycerides Lipase Arterial Blood Glucose Arterial Blood Ionized Calcium Urine WBC (Auto) Coronavirus (PCR) SARS-CoV-2 IgG Ab Crossmatch 07/09/20 07/09/20 07/09/20 16:47 23:53 Unknown WBC RBC Hgb Hct MCV MCH MCHC RDW Lymph % (Auto) [place] % (Auto) Lymph # (Auto) [place] # (Auto) Baso # (Auto) Seg Neutrophils % Seg Neuts % (Manual) Lymphocytes % (Manual) Nucleated RBC % Seg Neutrophils # Seg Neutrophils # Man Lymphocytes # (Manual) Monocytes # (Manual) Eosinophils # (Manual) PT INR APTT D-Dimer Heparin Anti-Xa Level ABG pH POC ABG pCO2 POC ABG pO2 ABG pO2 ABG HCO3 ABG O2 Saturation ABG Base Excess ABG Hemoglobin ABG Oxyhemoglobin ABG Sodium ABG Potassium ABG Chloride ABG Glucose Oxyhemoglobin Carboxyhemoglobin Sodium 132 L Potassium Chloride 92.7 L Carbon Dioxide 35 H BUN Creatinine 0.2 L Glucose 234 H POC Glucose 136 H 219 H Lactic Acid Calcium Magnesium Ferritin Total Bilirubin Direct Bilirubin AST ALT Alkaline Phosphatase Lactate Dehydrogenase C-Reactive Protein Total Protein Albumin Triglycerides Lipase Arterial Blood Glucose Arterial Blood Ionized Calcium Urine WBC (Auto) Coronavirus (PCR) SARS-CoV-2 IgG Ab Crossmatch 07/10/20 07/10/20 07/10/20 05:20 12:05 18:38 WBC RBC Hgb Hct MCV MCH MCHC RDW Lymph % (Auto) [place] % (Auto) Lymph # (Auto) [place] # (Auto) Baso # (Auto) Seg Neutrophils % Seg Neuts % (Manual) Lymphocytes % (Manual) Nucleated RBC % Seg Neutrophils # Seg Neutrophils # Man Lymphocytes # (Manual) Monocytes # (Manual) Eosinophils # (Manual) PT INR APTT D-Dimer Heparin Anti-Xa Level ABG pH POC ABG pCO2 POC ABG pO2 ABG pO2 ABG HCO3 ABG O2 Saturation ABG Base Excess ABG Hemoglobin ABG Oxyhemoglobin ABG Sodium ABG Potassium ABG Chloride ABG Glucose Oxyhemoglobin Carboxyhemoglobin Sodium Potassium Chloride Carbon Dioxide BUN Creatinine Glucose POC Glucose 221 H 174 H 152 H Lactic Acid Calcium Magnesium Ferritin Total Bilirubin Direct Bilirubin AST ALT Alkaline Phosphatase Lactate Dehydrogenase C-Reactive Protein Total Protein Albumin Triglycerides Lipase Arterial Blood Glucose Arterial Blood Ionized Calcium Urine WBC (Auto) Coronavirus (PCR) SARS-CoV-2 IgG Ab Crossmatch 07/11/20 07/11/20 07/11/20 00:16 05:42 08:13 WBC 11.9 H RBC 3.13 L Hgb 10.2 L Hct 31.2 L MCV 100 H MCH 33 H MCHC RDW 16.4 H Lymph % (Auto) [place] % (Auto) 9.3 H Lymph # (Auto) [place] # (Auto) 1.1 H Baso # (Auto) Seg Neutrophils % 72.7 H Seg Neuts % (Manual) Lymphocytes % (Manual) Nucleated RBC % Seg Neutrophils # 8.7 H Seg Neutrophils # Man Lymphocytes # (Manual) Monocytes # (Manual) Eosinophils # (Manual) PT INR APTT D-Dimer Heparin Anti-Xa Level ABG pH POC ABG pCO2 POC ABG pO2 ABG pO2 ABG HCO3 ABG O2 Saturation ABG Base Excess ABG Hemoglobin ABG Oxyhemoglobin ABG Sodium ABG Potassium ABG Chloride ABG Glucose Oxyhemoglobin Carboxyhemoglobin Sodium Potassium Chloride Carbon Dioxide BUN Creatinine Glucose POC Glucose 170 H 186 H Lactic Acid Calcium Magnesium Ferritin Total Bilirubin Direct Bilirubin AST ALT Alkaline Phosphatase Lactate Dehydrogenase C-Reactive Protein Total Protein Albumin Triglycerides Lipase Arterial Blood Glucose Arterial Blood Ionized Calcium Urine WBC (Auto) Coronavirus (PCR) SARS-CoV-2 IgG Ab Crossmatch 07/11/20 07/11/20 08:13 11:35 WBC RBC Hgb Hct MCV MCH MCHC RDW Lymph % (Auto) [place] % (Auto) Lymph # (Auto) [place] # (Auto) Baso # (Auto) Seg Neutrophils % Seg Neuts % (Manual) Lymphocytes % (Manual) Nucleated RBC % Seg Neutrophils # Seg Neutrophils # Man Lymphocytes # (Manual) Monocytes # (Manual) Eosinophils # (Manual) PT INR APTT D-Dimer Heparin Anti-Xa Level ABG pH POC ABG pCO2 POC ABG pO2 ABG pO2 ABG HCO3 ABG O2 Saturation ABG Base Excess ABG Hemoglobin ABG Oxyhemoglobin ABG Sodium ABG Potassium ABG Chloride ABG Glucose Oxyhemoglobin Carboxyhemoglobin Sodium 135 L Potassium Chloride 92.8 L Carbon Dioxide 38 H BUN Creatinine 0.2 L Glucose 132 H POC Glucose 129 H Lactic Acid Calcium Magnesium Ferritin Total Bilirubin Direct Bilirubin AST ALT Alkaline Phosphatase Lactate Dehydrogenase C-Reactive Protein Total Protein Albumin Triglycerides Lipase Arterial Blood Glucose Arterial Blood Ionized Calcium Urine WBC (Auto) Coronavirus (PCR) SARS-CoV-2 IgG Ab Crossmatch Chest x-ray: pending Allied health notes reviewed: nursing
[2020-07-12] MEDS: INSULIN LISPRO 100 UNIT/ML VIAL 3 mL SUB-Q SCH ×4 (00:06→18:03)
[2020-07-12] MEDS: fentaNYL DRIP Premix 2,000 MCG/100 ML BAG IV SCH (00:11)
[2020-07-12] MEDS: MIDAZOLAM 100 MG in SODIUM CHLORIDE 0.9% 80 ML IV SCH (03:13)
[2020-07-12] MEDS: dexmedeTOMIDine 1,000 MCG in SODIUM CHLORIDE 0.9% 250ML 250 ML IV SCH ×2 (05:31→14:20)
--- NOTE | 2020-07-12 09:17 | Progress Note ---
Assessment and Plan Assessment and plan: - Acute hypoxemic respiratory failure; Patient intubated and on vent support --Severe COVID-19 bilateral pneumonia Coronavirus protocol: IV steroid therapy, completed remdesivir, isolation precautions, contact precautions, prone positioning while in bed, pulmonary toilet. ID following SARS CoV-2 IgG positive patient is NOT a candidate for COVID convalescent plasma --Severe sepsis/septic shock, due to COVID 19 PNA cont pressors as needed -- Acute kidney injury (SEN) , likely vasomotor nephropathy Resolved, IV fluids, avoid nephrotoxins --Acute on chronic anemia Guaiac test positive GI evaluation PPIs Continue to monitor -- Elevated liver function tests Suspected secondary to alcoholic liver disease. Supportive care, alcohol cessation, patient counseled. --Colonic distention GI evaluation -recommend stool softeners Serial abdominal x-rays Monitor electrolytes and replete -- DVT prophylaxis On therapeutic Lovenox 50 YO Male with Obesity, ETOH Dependence presents to ED for evaluation for shortness of breath, generalized weakness, fatigue, malaise, body aches, decreased exercise tolerance over the past 5 days. EMS was notified and upon arrival the patient was found to be in distress with a pulse oximetry of 76% on room air as well as fever to 103 F. In the ER chest x-ray and was found to have bilateral pneumonia. Patient admitted to medical floor and initiated on pneumonia protocol as well as COVID-19 protocol. Patient reports being diagnosed with coronavirus 2 days ago before admission. 06/16/2020. Patient currently on mechanical ventilation with AC mode rate 30, tidal volume 500, FiO2 70% and PEEP of 16. Continue anticoagulation with Lovenox 110 milligrams subcu every 12 hours. Wean sedation of fentanyl/Versed as needed. Currently with IV steroids of Solu-Medrol 40 mg IV every 12 hours. Patient will likely need tracheostomy per pulmonary recommendations. Continue pressors to maintain MAP > 65. 06/17/2020. Patient currently on mechanical ventilation with AC mode rate 30, tidal volume 500, FiO2 65% and PEEP of 16. Continue anticoagulation with Lovenox 110 milligrams subcu every 12 hours. Wean sedation of fentanyl/Versed as needed. Currently with IV steroids of Solu-Medrol 40 mg IV every 12 hours. Patient will likely need tracheostomy per pulmonary recommendations. 06/18/2020. Patient currently on mechanical ventilation with AC mode rate 30, tidal volume 500, FiO2 70% and PEEP of 16. Continue Lovenox for anticoagulation and fentanyl/Versed for sedation. Wean steroids per pulmonary. CIWA protocol initiated for history of EtOH dependence 06/19/2020. Patient currently on mechanical ventilation with AC mode rate 30, tidal volume 500, FiO2 60% and PEEP of 16. Wean FiO2 as tolerated per protocol. Continue Lovenox for anticoagulation and fentanyl/Versed for sedation. Wean steroids per pulmonary. CIWA protocol initiated for history of EtOH dependence 06/20/2020. Patient currently on mechanical ventilation with AC mode rate 30, tidal volume 500, FiO2 60% and PEEP of 16. Wean FiO2 as tolerated, SBT per protocol. Continue Lovenox for anticoagulation and fentanyl/Versed for sedation. Wean steroids per pulmonary. Continue pressors to maintain MAP > 65 mmHg. Patient remains on ETT. Consider tracheostomy placement once oxygenation is better per pulmonary. CIWA protocol initiated for history of EtOH dependence. 06/21/2020. Patient with a small apical pneumothorax discovered yesterday. General surgery consulted and consider placing chest tube. Follow-up serial chest x-ray patient currently on mechanical ventilation with AC mode rate 30, tidal volume 500, FiO2 60% and PEEP of 16. Wean FiO2 as tolerated, SBT per protocol. Continue Lovenox for anticoagulation and fentanyl/Versed for sedation. Wean steroids per pulmonary. Continue pressors to maintain MAP > 65 mmHg. Patient remains on ETT. Consider tracheostomy placement once oxygenation is better per pulmonary. CIWA protocol initiated for history of EtOH dependence. 06/22. Status post right chest tube placement yesterday. Remains mechanically ventilated on pressors. Examination today shows slightly distended abdomen. KUB ordered. Awaiting stool guaiac. Plan to get a GI evaluation. 06/23. Has colonic distention on the x-ray. Discussed with GI-advised stool softeners for now and close monitoring. No indication for colonic decompression at this time. Guaiac test is positive. No emergent indication for endoscopy at this point as per GI. Continue to monitor hemoglobin. 06/24. Remains intubated. On pressors. GI following for positive guaiac stool a nd anemia, and colonic distention. 06/25. Repeat abdominal xray ordered. Remains on mechanical ventilation. 06/26. Abdominal xray - resolved colonic distension. Mechanically ventilated. 06/27. Plan for trach and PEG. 06/28: Awaiting trach and Peg. S\ome Bm REPORTED, will continue to monitor 06/29: Resume care, patient remains on ventilator support, waiting on trach and PEG placement. BM reported by the RN, continue to monitor. 06/30: Unable to wean off from vent, patient will need trach and PEG. Continue supportive care, tolerating tube feed. Monitor CBC and BMP 07/01: Continue mechanical ventilation, tube feeding as tolerated. Sedation as needed per mechanical ventilation protocol. Waiting on trach and PEG placement. 07/02: Continue current management, tube feeding, monitor CBC and BMP. Need trach and PEG-waiting on scheduling. Pulmonary critical care following. 07/03: wean off vent as tolerated. follow clinically. need trach and PEG 07/04: unable to wean. CT head ordered to assess for any changes but too unstable to do the test. need trach and PEG. 07/05: plan for trach/peg - GS following. off pressor - on midodrine. renal function stable. intubated, but alert and can follow minor commend. discussed with daughter by phone. 07/06/2020; Dr. Márquez discussed with patient's daughter about trach but the daughter needs time to think about it. Patient was intubated and alert, FiO2 40%. 07/07/2020; patient was intubated and alert, FiO2 40%. Patient was diaphoretic, tachycardic, and EKG was done which was abnormal for me. I called audit clerks supervisor Dr Louis saw the EKG and said it is normal EKG, and the findings are abnormal. 07/08/2020; no significant change, patient is intubated and alert. 1/2: Patient continues on current management. Pulmonary recommending trach and PEG awaiting patient's decision on this. Will check intermittent labs /3: Ordered CT still pending. Patient was agitated at night. Appears to have calmed down. Will repeat labs today. 07/12: Continue supportive care, awaiting cpap trial. discussed with pulmonary. Obtain labs today. Trach and Peg planned The high probability of a clinically significant, sudden or life threatening deterioration of the [respiratory] system(s) required my full and direct a ttention, intervention and personal management. The aggregate critical care time was [31] minutes. This time is in addition to time spent performing reported procedures but includes the following: [x] Data Review and interpretation [x] Patient assessment and monitoring of vital signs [x] Documentation [x] Medication orders and management History Interval history: PT seen and examined. Remains on full ventilatory support, CPAP trial Hospitalist Physical - Physical exam Narrative exam: VITAL SIGNS: Reviewed. Exam limited due to global pandemic PPE GENERAL: Sedated and intubated HEAD: No signs of head trauma. MOUTH: Oropharynx is normal. NECK: No adenopathy, no JVD. CHEST: Chest with diminished breath sounds bilaterally. No wheezes, rales, or rhonchi. CARDIAC: normal S1 and S2, without murmurs, gallops, or rubs. ABDOMEN: Slightly distended, bowel sounds hypoactive NEUROLOGIC EXAM: Sedated and intubated - Constitutional Vitals: Temp Pulse Resp BP Pulse Ox 98.3 F 107 H 27 H 119/77 95 07/12/20 03:21 07/12/20 08:54 07/12/20 08:54 07/12/20 08:54 07/12/20 08:54 General appearance: Present: no acute distress, mild distress, well-nourished HEART Score - HEART Score Troponin: Troponin T 0.015 ng/mL (0.00-0.029) 07/07/20 10:00 Results - Labs CBC & Chem 7: 07/11/20 08:13 07/11/20 08:13 Labs: Laboratory Last Values WBC 11.9 K/mm3 (4.5-11.0) H 07/11/20 08:13 RBC 3.13 M/mm3 (3.65-5.03) L 07/11/20 08:13 Hgb 10.2 gm/dl (11.8-15.2) L 07/11/20 08:13 Hct 31.2 % (35.5-45.6) L 07/11/20 08:13 MCV 100 fl (84-94) H 07/11/20 08:13 MCH 33 pg (28-32) H 07/11/20 08:13 MCHC 33 % (32-34) 07/11/20 08:13 RDW 16.4 % (13.2-15.2) H 07/11/20 08:13 Plt Count 296 K/mm3 (140-440) 07/11/20 08:13 Lymph % (Auto) 17.5 % (13.4-35.0) 07/11/20 08:13 Antelope % (Auto) 9.3 % (0.0-7.3) H 07/11/20 08:13 Eos % (Auto) 0.3 % (0.0-4.3) 07/11/20 08:13 Baso % (Auto) 0.2 % (0.0-1.8) 07/11/20 08:13 Lymph # (Auto) 2.1 K/mm3 (1.2-5.4) 07/11/20 08:13 Antelope # (Auto) 1.1 K/mm3 (0.0-0.8) H 07/11/20 08:13 Eos # (Auto) 0.0 K/mm3 (0.0-0.4) 07/11/20 08:13 Baso # (Auto) 0.0 K/mm3 (0.0-0.1) 07/11/20 08:13 Add Manual Diff Complete 07/08/20 04:58 Total Counted 100 07/08/20 04:58 Seg Neutrophils % 72.7 % (40.0-70.0) H 07/11/20 08:13 Seg Neuts % (Manual) 93.0 % (40.0-70.0) H 07/08/20 04:58 Band Neutrophils % 2.0 % 07/01/20 06:41 Lymphocytes % (Manual) 3.0 % (13.4-35.0) L 07/08/20 04:58 Reactive Lymphs % (Man) 0 % 06/15/20 Unknown Monocytes % (Manual) 4.0 % (0.0-7.3) 07/08/20 04:58 Eosinophils % (Manual) 3.0 % (0.0-4.3) 07/01/20 06:41 Basophils % (Manual) 0 % (0.0-1.8) 06/15/20 Unknown Metamyelocytes % 1.0 % 06/28/20 06:35 Myelocytes % 0 % 06/15/20 Unknown Promyelocytes % 0 % 06/15/20 Unknown Blast Cells % 0 % 06/15/20 Unknown Nucleated RBC % Not Reportable 07/08/20 04:58 Seg Neutrophils # 8.7 K/mm3 (1.8-7.7) H 07/11/20 08:13 Seg Neutrophils # Man 19.5 K/mm3 (1.8-7.7) H 07/08/20 04:58 Band Neutrophils # 0.0 K/mm3 07/08/20 04:58 Lymphocytes # (Manual) 0.6 K/mm3 (1.2-5.4) L 07/08/20 04:58 Abs React Lymphs (Man) 0.0 K/mm3 07/08/20 04:58 Monocytes # (Manual) 0.8 K/mm3 (0.0-0.8) 07/08/20 04:58 Eosinophils # (Manual) 0.0 K/mm3 (0.0-0.4) 07/08/20 04:58 Basophils # (Manual) 0.0 K/mm3 (0.0-0.1) 07/08/20 04:58 Metamyelocytes # 0.0 K/mm3 07/08/20 04:58 Myelocytes # 0.0 K/mm3 07/08/20 04:58 Promyelocytes # 0.0 K/mm3 07/08/20 04:58 Blast Cells # 0.0 K/mm3 07/08/20 04:58 WBC Morphology Not Reportable 07/08/20 04:58 Hypersegmented Neuts Not Reportable 07/08/20 04:58 Hyposegmented Neuts Not Reportable 07/08/20 04:58 Hypogranular Neuts Not Reportable 07/08/20 04:58 Smudge Cells Not Reportable 07/08/20 04:58 Toxic Granulation Not Reportable 07/08/20 04:58 Toxic Vacuolation Not Reportable 07/08/20 04:58 Dohle Bodies Not Reportable 07/08/20 04:58 Pelger-Huet Anomaly Not Reportable 07/08/20 04:58 Jason Rods Not Reportable 07/08/20 04:58 Platelet Estimate Consistent w auto 07/08/20 04:58 Clumped Platelets Not Reportable 07/08/20 04:58 Plt Clumps, EDTA Not Reportable 07/08/20 04:58 Large Platelets Not Reportable 07/08/20 04:58 Giant Platelets Not Reportable 07/08/20 04:58 Platelet Satelliting Not Reportable 07/08/20 04:58 Plt Morphology Comment Not Reportable 07/08/20 04:58 RBC Morphology Normal 07/08/20 04:58 Dimorphic RBCs Not Reportable 07/08/20 04:58 Polychromasia Not Reportable 07/08/20 04:58 Hypochromasia Not Reportable 07/08/20 04:58 Poikilocytosis Not Reportable 07/08/20 04:58 Anisocytosis Not Reportable 07/08/20 04:58 Microcytosis Not Reportable 07/08/20 04:58 Macrocytosis Not Reportable 07/08/20 04:58 Spherocytes Not Reportable 07/08/20 04:58 Pappenheimer Bodies Not Reportable 07/08/20 04:58 Sickle Cells Not Reportable 07/08/20 04:58 Target Cells Not Reportable 07/08/20 04:58 Stomatocytes Few 06/14/20 07:15 Tear Drop Cells Not Reportable 07/08/20 04:58 Ovalocytes Not Reportable 07/08/20 04:58 Helmet Cells Not Reportable 07/08/20 04:58 [place] Bodies Not Reportable 07/08/20 04:58 [place] Rings Not Reportable 07/08/20 04:58 [place] Cells Not Reportable 07/08/20 04:58 Bite Cells Not Reportable 07/08/20 04:58 Crenated Cell Not Reportable 07/08/20 04:58 Elliptocytes Not Reportable 07/08/20 04:58 Acanthocytes (Spur) Not Reportable 07/08/20 04:58 Rouleaux Not Reportable 07/08/20 04:58 Hemoglobin C Crystals Not Reportable 07/08/20 04:58 Schistocytes Not Reportable 07/08/20 04:58 Malaria parasites Not Reportable 07/08/20 04:58 Josue Bodies Not Reportable 07/08/20 04:58 Hem Pathologist Commnt No 07/08/20 04:58 PT 11.8 Sec. (12.2-14.9) L 06/22/20 14:29 INR 0.88 (0.87-1.13) 06/22/20 14:29 APTT 23.5 Sec. (24.2-36.6) L 06/22/20 14:29 D-Dimer 1887.82 ng/mlDDU (0-234) H 05/20/20 08:16 Heparin Anti-Xa Level 0.37 U.I./ml (0.3-0.7) 07/02/20 16:08 ABG pH 7.449 (7.320-7.450) 07/11/20 18:36 POC ABG pCO2 47.7 mmHg (32.0-48.0) 07/11/20 18:36 ABG pCO2 53.1 mm Hg 07/08/20 Unknown POC ABG pO2 70.9 mmHg (83-108) L 07/11/20 18:36 ABG pO2 75.3 mm Hg (80.0-90.0) L 07/08/20 Unknown POC ABG HCO3 32.3 07/11/20 18:36 ABG HCO3 34.3 mmol/L (20.0-26.0) H 07/08/20 Unknown ABG O2 Saturation 96.5 % (95.0-99.0) 07/08/20 Unknown ABG O2 Content 13.5 (0.0-44) 07/08/20 Unknown POC ABG Base Excess 7.4 07/11/20 18:36 ABG Base Excess 8.7 mmol/L (-2.0-3.0) H 07/08/20 Unknown ABG Hemoglobin 10.8 (12.0-17.5) L 07/11/20 18:36 ABG Oxyhemoglobin 92.5 (94-98) L 07/11/20 18:36 ABG Carboxyhemoglobin 2.4 % (0.0-5.0) 07/08/20 Unknown ABG Methemoglobin 0.3 (0.0-1.5) 07/11/20 18:36 ABG Sodium 131.8 mmol/L (136.0-145.0) L 07/11/20 18:36 ABG Potassium 3.2 mmol/L (3.40-4.50) L 07/11/20 18:36 ABG Chloride 91.0 mmol/L (98-107) L 07/11/20 18:36 ABG Glucose 181 mg/dL (65-95) H 07/11/20 18:36 Oxyhemoglobin 93.7 % (95.0-99.0) L 07/08/20 Unknown Carboxyhemoglobin 1.1 (0.5-1.5) 07/11/20 18:36 FiO2 40.0 07/11/20 18:36 Sodium 135 mmol/L (137-145) L 07/11/20 08:13 Potassium 3.7 mmol/L (3.6-5.0) 07/11/20 08:13 Chloride 92.8 mmol/L (98-107) L 07/11/20 08:13 Carbon Dioxide 38 mmol/L (22-30) H 07/11/20 08:13 Anion Gap 8 mmol/L 07/11/20 08:13 BUN 14 mg/dL (9-20) 07/11/20 08:13 Creatinine 0.2 mg/dL (0.8-1.3) L 07/11/20 08:13 Estimated GFR > 60 ml/min 07/11/20 08:13 BUN/Creatinine Ratio 70 % 07/11/20 08:13 Glucose 132 mg/dL (75-100) H 07/11/20 08:13 POC Glucose 190 mg/dL (70-105) H 07/12/20 05:28 Lactic Acid 1.80 mmol/L (0.7-2.0) 05/09/20 Unknown Calcium 9.2 mg/dL (8.4-10.2) 07/11/20 08:13 Phosphorus 3.10 mg/dL (2.5-4.5) 06/15/20 04:00 Magnesium 1.70 mg/dL (1.7-2.3) 06/30/20 07:00 Ferritin 1496.0 ng/mL (30.0-300.0) H 06/14/20 11:50 Total Bilirubin 0.60 mg/dL (0.1-1.2) 06/30/20 07:00 Direct Bilirubin 0.6 mg/dL (0-0.2) H 05/11/20 07:30 Indirect Bilirubin 0.9 mg/dL 05/11/20 07:30 AST 21 units/L (5-40) 06/30/20 07:00 ALT 30 units/L (7-56) 06/30/20 07:00 Alkaline Phosphatase 81 units/L (35-129) 06/30/20 07:00 Lactate Dehydrogenase 705 units/L (91-180) H 05/20/20 08:16 Troponin T 0.015 ng/mL (0.00-0.029) 07/07/20 10:00 C-Reactive Protein 3.10 mg/dL (0.00-1.30) H 05/20/20 08:16 Total Protein 6.3 g/dL (6.3-8.2) 06/30/20 07:00 Albumin 2.8 g/dL (3.9-5) L 06/30/20 07:00 Albumin/Globulin Ratio 0.8 % 06/30/20 07:00 Triglycerides 452 mg/dL (2-149) H 06/30/20 07:00 Lipase 86 units/L (13-60) H 06/29/20 09:36 Procalcitonin 0.94 ng/mL (<0.15) 06/14/20 11:50 Arterial Blood Glucose 181 mg/dL (65-95) H 07/11/20 18:36 Arterial Blood Ionized Calcium 4.8 mg/dL (4.6-5.3) 07/11/20 18:36 Urine Color Fauzia (Yellow) 05/10/20 Unknown Urine Turbidity Clear (Clear) 05/10/20 Unknown Urine pH 5.0 (5.0-7.0) 05/10/20 Unknown Ur Specific [place] 1.019 (1.003-1.030) 05/10/20 Unknown Urine Protein 100 mg/dl mg/dL (Negative) 05/10/20 Unknown Urine Glucose (UA) Neg mg/dL (Negative) 05/10/20 Unknown Urine Ketones Neg mg/dL (Negative) 05/10/20 Unknown Urine Blood Lg (Negative) 05/10/20 Unknown Urine Nitrite Neg (Negative) 05/10/20 Unknown Urine Bilirubin Neg (Negative) 05/10/20 Unknown Urine Urobilinogen 2.0 mg/dL (<2.0) 05/10/20 Unknown Ur Leukocyte Esterase Neg (Negative) 05/10/20 Unknown Urine WBC (Auto) 11.0 /HPF (0.0-6.0) H 05/10/20 Unknown Urine RBC (Auto) 2.0 /HPF (0.0-6.0) 05/10/20 Unknown U Epithel Cells (Auto) 1.0 /HPF (0-13.0) 11/02/20 Unknown Urine Bacteria (Auto) 1+ /HPF (Negative) 05/10/20 Unknown Urine Mucus Few /HPF 05/10/20 Unknown Plasma/Serum Alcohol < 0.01 % (0-0.07) 05/09/20 14:20 Coronavirus (PCR) Negative (Negative) 06/30/20 10:28 SARS-CoV-2 IgG Ab Reactive (NonReactive) A 05/11/20 07:30 Blood Type B POSITIVE 06/21/20 14:18 Antibody Screen Negative 06/21/20 14:18 Crossmatch See Detail 06/21/20 14:18 - Diagnostic Impressions Diagnostic Impressions: Echocardiogram 05/20/20 13:02 Transthoracic Echocardiogram Indication: CHF BP: 97/73 Conclusions *The study quality is technically very difficult and limited. *The left ventricular chamber size, wall thickness and systolic function are within normal limits. There are no wall motion abnormalities observed. Ejection fraction is normal. *The estimated ejection fraction is 60-65%. *The pericardium appears normal. Findings Procedure Info: The study quality is technically difficult. Left Ventricle: The left ventricular chamber size, wall thickness and systolic function are within normal limits. There are no wall motion abnormalities observed. Ejection fraction is normal. The estimated ejection fraction is 60-65%. Abnormal left ventricular diastolic filling is observed, consistent with impaired relaxation. Left Atrium: The left atrium is normal in size with no visual thrombus identified. Right Ventricle: The right ventricle is not well visualized. Right Atrium: The right atrium is not well visualized. Aortic Valve: The aortic valve is trileaflet. The leaflets are thin with normal excursion. There is no aortic stenosis or regurgitation present. Mitral Valve: The mitral valve appears normal in structure and function. Tricuspid Valve: The tricuspid valve appears normal in structure and function. Unable to estimate the right ventricular systolic pressure. Pulmonic Valve: The pulmonic valve is not well visualized. There is no evidence of pulmonic regurgitation. There is no pulmonic stenosis. Pericardium: The pericardium appears normal. Pulmonary Artery: The main pulmonary artery is not well visualized. Venous: The inferior vena cava appears normal in size. Measurements Chambers 2D Name Value Normal Range IVSd (2D) 0.83 cm (0.6 - 1.1) LVPWd (2D) 0.83 cm (0.6 - 1.1) LVIDd (2D) 3.88 cm (3.7 - 5.6) LVIDs (2D) 2.46 cm (2 - 3.8) LV FS (2D) 36.52 % - EF Teichholz (2D) 66.97 % - Ao root diameter (2D) 3.47 cm (2 - 3.7) Volumes/Mass Name Value Normal Range LA ESV SP 4CH (A/L) 22.4 ml - LA ESV SP 2CH (A/L) 22.89 ml - LA ESV BP (A/L) 23.06 ml - LA ESV SP 4CH (MOD) 21.09 ml - LA ESV SP 2CH (MOD) 22.44 ml - Diastolic/Systolic Function Name Value Normal Range MV E-wave Vmax 0.48 m/sec - MV deceleration time 156.3 msec - MV A-wave Vmax 0.59 m/sec - MV E:A ratio 0.81 ratio - Aortic Valve Name Value Normal Range AV Vmax 0.97 m/sec - AV VTI 14.49 cm - AV peak gradient 3.73 mmHg - AV mean gradient 1.89 mmHg - LVOT diameter 2.09 cm - LVOT Vmax 0.72 m/sec - LVOT VTI 10.21 cm - LVOT peak gradient 2.05 mmHg - LVOT mean gradient 1.03 mmHg - SV LVOT 35.17 ml - INNA (continuity Vmax) 2.55 cm2 - INNA (continuity VTI) 2.43 cm2 - Tricuspid Valve Name Value Normal Range TV E-wave Vmax 0.37 m/sec - Pulmonic Valve/Qp:Qs Name Value Normal Range PV Vmax 0.72 m/sec - PV peak gradient 2.06 mmHg - RVOT Vmax 0.85 m/sec - RVOT VTI 9.89 cm - RVOT peak gradient 2.9 mmHg - PV acceleration time 72.31 msec - Cantor/IV: Voiding Method Condom Catheter IV Catheter Type [Right Upper PICC Line arm] IV Catheter Type [Right CVL Internal Jugular] IV Catheter Type [Right Peripheral IV Forearm] IV Catheter Type [Left Forearm Peripheral IV ] IV Catheter Type [Left Wrist] INT / Saline Lock IV Catheter Type [Right Hand] INT / Saline Lock IV Catheter Type [Left Hand] INT / Saline Lock IV Catheter Type [Left Peripheral IV Antecubital] Active Medications - Current Medications Current Medications: Generic Name Dose Route Start Last Admin Trade Name Freq PRN Reason Stop Dose Admin Acetaminophen 650 mg 06/14/20 10:07 06/21/20 20:21 Tylenol FEEDTUBE 650 mg Q4H PRN Administration Pain, Mild (1-3) Alprazolam 0.25 mg 05/20/20 17:53 07/08/20 06:24 Alprazolam 0.25 Mg Tab PO 0.25 mg Q8H PRN Administration Anxiety Lipase/Protease/Amylase 1 each 05/22/20 13:01 Lipase 10,500/Protease 25,000/Amylase 43,750 (Units) Dr Newell FEEDTUBE PRN PRN For Clogged Feeding Tube Bisacodyl 10 mg 06/26/20 22:00 07/11/20 21:01 Bisacodyl 10 Mg Rect Supp OR 10 mg BID DESIRE Administration Docusate Sodium 100 mg 05/28/20 14:00 07/11/20 21:00 Docusate Sodium 100 Mg/10 Ml Oral Liqd PO 100 mg BID DESIRE Administration Enoxaparin Sodium 80 mg 07/07/20 23:00 07/11/20 21:02 Enoxaparin 80 Mg/0.8 Ml Inj SUB-Q 80 mg Q12HR DESIRE Administration Enoxaparin Sodium 30 mg 07/07/20 23:00 07/11/20 21:01 Enoxaparin 30 Mg/0.3 Ml Inj SUB-Q 30 mg Q12HR DESIRE Administration Fentanyl 50 mcg 06/22/20 09:48 07/07/20 12:19 Fentanyl 100 Mcg/2 Ml Inj IV 50 mcg Q10MIN PRN Administration ANALGESIA Folic Acid 1 mg 05/09/20 15:36 07/11/20 10:24 Folic Acid 1 Mg Tab PO 1 mg QDAY DESIRE Administration Hydrophilic Ointment 1 applic 05/21/20 20:33 Lip Therapy Vaseline TP Q2HR PRN Dry Lips Midazolam HCl 100 mg/ Sodium 100 mls @ 2 mls/hr 06/02/20 14:00 07/12/20 08:24 Chloride IV 0 mg/hr TITR DESIRE 0 mls/hr Titration Protocol 2 MG/HR Norepinephrine 4 mg in 250 mls @ 7.5 mls/hr 06/04/20 16:00 07/10/20 23:52 Levophed Drip 4 Mg/Ns 250 Ml IV 2 mcg/min TITR DESIRE 7.5 mls/hr Titration Protocol 2 MCG/MIN Fentanyl Citrate 2,000 mcg in 100 mls @ 5.32 mls/hr 06/09/20 14:00 07/12/20 08:59 Fentanyl Drip Premix IV 0 mcg/kg/hr TITR DESIRE 0 mls/hr Titration Protocol 1 MCG/KG/HR Vasopressin 20 unit/ Sodium 101 mls @ 9.09 mls/hr 06/09/20 18:00 Chloride IV TITR DESIRE Protocol 0.03 UNITS/MIN Dexmedetomidine HCl 1,000 mcg/ 260 mls @ 5.668 mls/hr 07/05/20 08:30 07/12/20 08:57 Sodium Chloride IV 0 mcg/kg/hr TITRATE DESIRE 0 mls/hr Titration Protocol 0.2 MCG/KG/HR Insulin Glargine 30 units 06/30/20 22:00 07/11/20 21:05 Insulin Glargine 100 Units/Ml SUB-Q 30 units QHS DESIRE Administration Insulin Glargine 5 units 07/05/20 14:00 07/11/20 12:22 Insulin Glargine 100 Units/Ml SUB-Q 5 units DAILY DESIRE Administration Insulin Human Lispro 0 unit 05/29/20 14:00 07/12/20 05:37 Insulin Lispro 100 Unit/Ml Vial 3 Ml SUB-Q 3 unit Q6H DESIRE Administration Protocol Lansoprazole 30 mg 06/28/20 10:00 07/11/20 10:25 Lansoprazole 30 Mg Solutab FEEDTUBE 30 mg QDAY DESIRE Administration Lorazepam 1 mg 07/04/20 01:10 07/09/20 13:34 Lorazepam 2 Mg/Ml Vial IV 1 mg Q1HR PRN Administration agitation Methylprednisolone Sodium Succinate 40 mg 05/20/20 18:00 07/11/20 21:01 Methylprednisolone Sod Succinate 40 Mg/1 Ml Inj IV 40 mg Q12H DESIRE Administration Metoprolol Tartrate 5 mg 07/02/20 17:17 07/08/20 14:38 Metoprolol Tartrate 5 Mg/5 Ml Inj IV 5 mg Q6HR PRN Administration Tachyarrhythmias Midodrine 10 mg 06/30/20 16:00 07/11/20 17:49 Midodrine 5 Mg Tab PO 10 mg TID@0800,1200,1600 DESIRE Administration Multi-Ingred Cream/Lotion/Oil/Oint 1 applic 05/21/20 20:33 Mineral Oil/Petrolatum, White Ophth Oint 3.5 Gm OU Q4HR PRN Dry Eye(s) Phenobarbital 32.4 mg 07/04/20 22:00 07/11/20 21:02 Phenobarbital 32.4 Mg Tab PO 32.4 mg BID DESIRE Administration Quetiapine Fumarate 100 mg 07/02/20 23:15 07/11/20 21:01 Quetiapine 100 Mg Tab PO 100 mg TID DESIRE Administration Quetiapine Fumarate 200 mg 07/02/20 23:00 07/11/20 21:01 Quetiapine 200 Mg Tab PO 200 mg TID DESIRE Administration Senna 17.2 mg 06/07/20 10:00 07/11/20 22:30 Sennosides 8.6 Mg Tab PO 17.2 mg BID DESIRE Administration Simple Syrup 15 ml 05/22/20 13:01 Simple Syrup 15 Ml FEEDTUBE PRN PRN Hypoglycemia Simple Syrup 30 ml 05/22/20 13:01 Simple Syrup 15 Ml FEEDTUBE PRN PRN Hypoglycemia Sodium Bicarbonate 325 mg 05/22/20 13:01 Sodium Bicarbonate 325 Mg Tab FEEDTUBE PRN PRN For Clogged Feeding Tube Sodium Chloride 10 ml 05/09/20 22:00 07/11/20 21:04 Sodium Chloride 0.9% 10 Ml Flush Syringe IV 10 ml BID DESIRE Administration Nutrition/Malnutrition Assess - Dietary Evaluation Nutrition/Malnutrition Findings: Nutrition Notes Start: 05/17/20 14:10 Freq: Status: Active Protocol: Document 07/07/20 13:16 (Rec: 07/07/20 13:20 [id number]) Nutrition Notes Initial or Follow up Reassessment Current Diagnosis Sepsis,Respiratory Failure Other Pertinent Diagnosis Bilat pneu, COVID-19 (+), EtOH dependence Current Diet Vital HP at 65 ml/hr (goal rate) Labs/Tests Na 135 K 3.4 BG 240 Pertinent Medications Solumedrol Humalog Levophed Height 6 ft Weight 110 kg [place] Body Weight (kg) 80.90 BMI 32.8 Weight Status Obese Subjective/Other Information FU for TF tolerance. Per RN, pt tolerating TF at goal. Percent of energy/protein needs met: 87%/84% Burn Absent Trauma Absent GI Symptoms None Current % PO Negligible Minimum of two criteria No physical signs of malnutrition #1 Nutrition Diagnosis Inadequate oral intake Diagnosis Progress(for reassessment Continues documentation) Is patient on ventilator? Yes Is Patient Ambulatory and/or Out of Bed No REE-([place] Je[place]-confined to bed) 2395.176 Kcal/Kg value to use for calculation 16 Approximate Energy Requirements Using 1760 kcal/Kg Calculation Used for Recommendations Kcal/kg Additional Notes Pro needs >2g/kg IBW: at least 162g/day Fluid needs 1ml/kcal Nutrition Intervention Change Diet Order: Continue TF Nutrition Support: Vital HP at 65ml/hr with 50ml water flush q4h. Kcal 1,560 Protein (gm) 136 Fluid (mL) 1,304 Goal #1 TF tolerance Goal #2 TF (at goal rate) to meet at least 75% energy and pro needs Anticipated Discharge Needs: Unable to identify at this time Follow-Up By: 07/14/20 Additional Comments F/U TF tolerance
[2020-07-12] MEDS: INSULIN GLARGINE 100 UNITS/ML SUB-Q SCH ×2 (09:21→22:07)
[2020-07-12] MEDS: LANSOPRAZOLE 30 MG SOLUTAB FEEDTUBE SCH (09:21)
[2020-07-12] MEDS: FOLIC ACID 1 MG TAB PO SCH (09:22)
[2020-07-12] MEDS: QUEtiapine 100 MG TAB PO SCH ×3 (09:22→22:08)
[2020-07-12] MEDS: QUEtiapine 200 MG TAB PO SCH ×3 (09:22→22:08)
[2020-07-12] MEDS: SENNOSIDES 8.6 MG TAB PO SCH ×2 (09:22→22:10)
[2020-07-12] MEDS: DOCUSATE SODIUM 100 MG/10 ML ORAL LIQD PO SCH ×2 (09:22→22:08)
[2020-07-12] MEDS: PHENobarbital 32.4 MG TAB PO SCH ×2 (09:22→22:08)
[2020-07-12] MEDS: MIDODRINE 5 MG TAB PO SCH ×3 (09:22→16:39)
[2020-07-12] MEDS: methylPREDNISolone Sod Succinate 40 MG/1 ML INJ IV SCH (09:25)
[2020-07-12] MEDS: ENOXAPARIN 30 MG/0.3 ML INJ SUB-Q SCH ×2 (09:29→22:07)
[2020-07-12] MEDS: ENOXAPARIN 80 MG/0.8 ML INJ SUB-Q SCH ×2 (09:35→22:07)
--- NOTE | 2020-07-12 13:19 | Progress Note ---
Assessment and Plan Acute hypoxemic respiratory failure due to COVID-19 Severe Sepsis Bilateral pneumonia Acute kidney injury (SEN) with acute tubular necrosis (ATN) Alcohol dependence Elevated liver function tests (Patient appears alert and follows simple commands albeit on sedation. I again explained to him the risk of extubation as he is not meeting criteria; i again strongly recommended he get a tracheostomy. He nodded to indicate he is still thinking about it) - await surgery discussion with patient - still recommend a tracheostomy as he remains on vasopressors and desaturates easily and with significant pneumonic infiltrate (Perhaps fibrotic element also) - resume Daily SAT's and SBT assessment as tolerated - continue to wean Levophed for target MAP > 65 mmHg - prn CXR's re: chest tube surveillance - continue care as below otherwise; - awaiting tracheostomy (COVID repeat negative) - continue to wean supplemental oxygen for target O2 sat's > 92% acutely - continue Seroquel at 300 mg po tid - continue Precedex - prn 12 lead EKG to monitor QT - continue midodrine re: hypotension - keep peep at 8 - continue bid protonix - continue bowel regimen - metoprolol 5 mg IV q6h prn pulse > 130/min - tracheostomy placement once oxygenation better / more hemodynamically stable - he will need a tracheostomy once numbers better - VAP bundle addressed - continue lung protective strategies - continue bronchodilators with pulmonary hygiene per RT - wean per pulmonary driven protocols otherwise - accuchecks with glycemic control per SSI (While critically ill target blood glucose of 140-180 mg/dL; avoid hypoglycemia) - sedation prn for target RASS -1 to -2 - continue enteral nutritional support at goal rate as tolerated - continue airborne and contact isolation - follow repeat COVID-19 testing - continue Zinc & Vit C supplementaion - continue systemic steroids for Asthma / severe COVID infection - Prone positioning as tolerated - continue empiric full dose anticoagulation re: elevated d-dimers / hypercoagulable state - NOT a candidate for COVID convalescent plasma - continue systemic steroids X >/= 10 days - completed remdesivir dosing (total 5 days) - empiric AB's coverage per ID rec's - accuchecks with glycemic control per SSI (While critically ill target blood glucose of 140-180 mg/dL; avoid hypoglycemia) - avoid nephrotoxins, renally dose all medications - continue to avoid benzodiazepine's, reduce the possibility of delirium - continue wound care per RN / WCN - prn analgesia per CPOT score - Maintenance of sleep-wake cycle, avoid delirium - continue to avoid benzodiazepine's, reduce the possibility of delirium - aspiration precautions - G.I. & VTE prophylaxis - PT/OT/ROM exercises - continue mobility protocols for pressure ulcer prophylaxis - Monitor hemodynamics closely - continue other care per attending / other consultants - discharge planning ongoing concurrently .... Re-evaluate in am & prn CONDITION: CRITICAL PROGNOSIS: GUARDED CODE STATUS: FULL CODE The high probability of a clinically significant, sudden or life-threatening deterioration of the [respiratory, cardiovascular, hematologic & neurologic] system(s) required my full and direct attention, intervention and personal tea torres. The aggregate critical care time was [34] minutes without overlap. Time includes spent on; [x] Data Review and interpretation [x] Patient assessment and monitoring of vital signs [x] Documentation [x] Medication orders and management Subjective Date of service: 07/12/20 Principal diagnosis: Ac hypoxemic resp failure; COVID-19; Severe Sepsis; Shaggy PNA; Alcohol Abuse Interval history: Patient is seen today for: Acute hypoxemic respiratory failure due to COVID-19; Severe Sepsis; Bilateral pneumonia; Alcohol dependence; Elevated liver function tests Seen and examined at bedside; 24hour events reviewed; nursing and respiratory care staff consulted; no adverse overnight events reported to me; resting in bed; remains on MVS; again discussed tracheostomy issues and he is still thinking about it. He is definitely coherent over the past 48 hours; he also has been tolerating SBT's well over last 24-36 hours Objective Vital Signs - 12hr 07/12/20 07/12/20 07/12/20 01:30 01:46 02:00 Temperature Pulse Rate 70 97 H 110 H Pulse Rate [ From Monitor] Respiratory 26 H 19 20 Rate Blood Pressure 73/42 129/84 120/76 O2 Sat by Pulse 95 97 96 Oximetry 07/12/20 07/12/20 07/12/20 02:15 02:30 02:45 Temperature Pulse Rate 118 H 113 H 114 H Pulse Rate [ From Monitor] Respiratory 24 26 H 25 H Rate Blood Pressure 161/93 125/74 133/78 O2 Sat by Pulse 99 92 92 Oximetry 07/12/20 07/12/20 07/12/20 03:00 03:15 03:21 Temperature 98.3 F Pulse Rate 109 H 114 H Pulse Rate [ From Monitor] Respiratory 21 23 Rate Blood Pressure 147/72 154/80 O2 Sat by Pulse 94 97 Oximetry 07/12/20 07/12/20 07/12/20 03:30 03:46 04:00 Temperature Pulse Rate 111 H 110 H 106 H Pulse Rate [ 112 H From Monitor] Respiratory 21 18 27 H Rate Blood Pressure 123/71 123/71 115/70 O2 Sat by Pulse 93 91 Oximetry 07/12/20 07/12/20 07/12/20 04:16 04:20 04:30 Temperature Pulse Rate 112 H 111 H 116 H Pulse Rate [ From Monitor] Respiratory 26 H 27 H Rate Blood Pressure 132/89 109/69 132/79 O2 Sat by Pulse 83 L 96 91 Oximetry 07/12/20 07/12/20 07/12/20 04:45 05:00 05:16 Temperature Pulse Rate 118 H 114 H 105 H Pulse Rate [ From Monitor] Respiratory 17 26 H 23 Rate Blood Pressure 133/73 127/79 109/69 O2 Sat by Pulse 93 93 93 Oximetry 07/12/20 07/12/20 07/12/20 05:30 05:45 06:00 Temperature Pulse Rate 111 H 113 H 107 H Pulse Rate [ From Monitor] Respiratory 25 H 19 20 Rate Blood Pressure 103/76 105/81 110/66 O2 Sat by Pulse 90 95 95 Oximetry 07/12/20 07/12/20 07/12/20 06:15 06:30 06:45 Temperature Pulse Rate 106 H 105 H 108 H Pulse Rate [ From Monitor] Respiratory 20 19 18 Rate Blood Pressure 113/75 113/77 117/83 O2 Sat by Pulse 93 94 95 Oximetry 07/12/20 07/12/20 07/12/20 07:00 07:15 07:30 Temperature Pulse Rate 105 H 107 H 112 H Pulse Rate [ From Monitor] Respiratory 16 21 26 H Rate Blood Pressure 121/73 127/70 124/79 O2 Sat by Pulse 95 93 92 Oximetry 07/12/20 07/12/20 07/12/20 07:45 08:00 08:15 Temperature Pulse Rate 115 H 115 H 107 H Pulse Rate [ From Monitor] Respiratory 18 20 23 Rate Blood Pressure 123/72 113/68 O2 Sat by Pulse 92 91 93 Oximetry 01/10/2707/12/20 07/12/20 08:30 08:45 08:54 Temperature Pulse Rate 106 H 111 H 107 H Pulse Rate [ From Monitor] Respiratory 22 19 27 H Rate Blood Pressure 118/76 119/77 119/77 O2 Sat by Pulse 95 95 95 Oximetry 07/12/20 07/12/20 07/12/20 09:00 09:15 09:30 Temperature Pulse Rate 108 H 104 H 107 H Pulse Rate [ From Monitor] Respiratory 22 19 20 Rate Blood Pressure 116/63 108/69 106/73 O2 Sat by Pulse 93 95 97 Oximetry 07/12/20 07/12/20 07/12/20 09:45 10:00 10:15 Temperature Pulse Rate 109 H 146 H 132 H Pulse Rate [ From Monitor] Respiratory 22 31 H 20 Rate Blood Pressure 105/72 112/72 119/66 O2 Sat by Pulse 96 89 93 Oximetry 07/12/20 07/12/20 07/12/20 10:31 10:45 11:01 Temperature Pulse Rate 143 H 127 H 123 H Pulse Rate [ From Monitor] Respiratory 29 H 25 H 27 H Rate Blood Pressure 132/68 132/68 126/70 O2 Sat by Pulse 88 92 89 Oximetry 07/12/20 07/12/20 07/12/20 11:15 11:30 11:45 Temperature Pulse Rate 135 H 117 H 121 H Pulse Rate [ From Monitor] Respiratory 29 H 21 27 H Rate Blood Pressure 126/70 121/66 116/59 O2 Sat by Pulse 86 93 87 Oximetry 07/12/20 07/12/20 07/12/20 11:51 12:00 12:15 Temperature Pulse Rate 121 H 120 H 125 H Pulse Rate [ From Monitor] Respiratory 26 H 23 21 Rate Blood Pressure 116/59 107/69 98/36 O2 Sat by Pulse 92 91 88 Oximetry 07/12/20 07/12/20 07/12/20 12:31 12:45 13:00 Temperature Pulse Rate 131 H 132 H 119 H Pulse Rate [ From Monitor] Respiratory 21 21 26 H Rate Blood Pressure 133/77 139/70 122/60 O2 Sat by Pulse 86 94 94 Oximetry 07/12/20 13:15 Temperature Pulse Rate 118 H Pulse Rate [ From Monitor] Respiratory 23 Rate Blood Pressure 113/59 O2 Sat by Pulse 94 Oximetry Constitutional: no acute distress, other (middle aged obese male with mildly increased respiratory effort at rest on MVS) Eyes: non-icteric ENT: oropharynx moist, other (ETT 24 cm CHILO) Neck: supple, no JVD Effort: mildly labored Ascultation: Bilateral: diminished breath sounds, rhonchi (scant), other (right chest tube) Percussion: Bilateral: not dull Cardiovascular: regular rate and rhythm, other (No R/M) Gastrointestinal: normoactive bowel sounds, soft, non-tender, non-distended (protuberant), other (distended and firm) Integumentary: normal Extremities: no cyanosis, no edema, pulses normal, no ischemia or petechiae Neurologic: non-focal exam (non focal grossly; weak), pupils equal and round, CN II-XII normal Psychiatric: mood appropriate, affect normal CBC and BMP: 07/11/20 08:13 07/11/20 08:13 ABG, PT/INR, D-dimer: ABG ABG pH 7.449 (7.320-7.450) 07/11/20 18:36 POC ABG pCO2 47.7 mmHg (32.0-48.0) 07/11/20 18:36 ABG pCO2 53.1 mm Hg 07/08/20 Unknown POC ABG pO2 70.9 mmHg (83-108) L 07/11/20 18:36 ABG pO2 75.3 mm Hg (80.0-90.0) L 07/08/20 Unknown POC ABG HCO3 32.3 07/11/20 18:36 ABG O2 Saturation 96.5 % (95.0-99.0) 07/08/20 Unknown PT/INR, D-dimer PT 11.8 Sec. (12.2-14.9) L 06/22/20 14:29 INR 0.88 (0.87-1.13) 06/22/20 14:29 D-Dimer 1887.82 ng/mlDDU (0-234) H 05/20/20 08:16 Abnormal lab findings: Abnormal Labs 05/09/20 05/09/20 05/09/20 12:59 12:59 12:59 WBC 11.8 H RBC Hgb Hct MCV 96 H MCH 34 H MCHC 35 H RDW Lymph % (Auto) 6.9 L [place] % (Auto) Lymph # (Auto) 0.8 L [place] # (Auto) Baso # (Auto) Seg Neutrophils % 87.5 H Seg Neuts % (Manual) Lymphocytes % (Manual) Nucleated RBC % Seg Neutrophils # 10.3 H Seg Neutrophils # Man Lymphocytes # (Manual) Monocytes # (Manual) Eosinophils # (Manual) PT INR APTT D-Dimer Heparin Anti-Xa Level ABG pH POC ABG pCO2 POC ABG pO2 ABG pO2 ABG HCO3 ABG O2 Saturation ABG Base Excess ABG Hemoglobin ABG Oxyhemoglobin ABG Sodium ABG Potassium ABG Chloride ABG Glucose Oxyhemoglobin Carboxyhemoglobin Sodium 130 L Potassium 3.5 L Chloride 86.4 L Carbon Dioxide BUN 33 H Creatinine 2.3 H Glucose 156 H POC Glucose Lactic Acid Calcium Magnesium Ferritin Total Bilirubin 3.40 H Direct Bilirubin 1.7 H AST 385 H ALT 134 H Alkaline Phosphatase Lactate Dehydrogenase C-Reactive Protein Total Protein Albumin 3.0 L Triglycerides Lipase Arterial Blood Glucose Arterial Blood Ionized Calcium Urine WBC (Auto) Coronavirus (PCR) SARS-CoV-2 IgG Ab Crossmatch 05/09/20 05/09/20 05/09/20 12:59 12:59 12:59 WBC RBC Hgb Hct MCV MCH MCHC RDW Lymph % (Auto) [place] % (Auto) Lymph # (Auto) [place] # (Auto) Baso # (Auto) Seg Neutrophils % Seg Neuts % (Manual) Lymphocytes % (Manual) Nucleated RBC % Seg Neutrophils # Seg Neutrophils # Man Lymphocytes # (Manual) Monocytes # (Manual) Eosinophils # (Manual) PT INR APTT D-Dimer 3242.51 H Heparin Anti-Xa Level ABG pH POC ABG pCO2 POC ABG pO2 ABG pO2 ABG HCO3 ABG O2 Saturation ABG Base Excess ABG Hemoglobin ABG Oxyhemoglobin ABG Sodium ABG Potassium ABG Chloride ABG Glucose Oxyhemoglobin Carboxyhemoglobin Sodium Potassium Chloride Carbon Dioxide BUN Creatinine Glucose 158 H POC Glucose Lactic Acid 3.50 H* Calcium Magnesium Ferritin Total Bilirubin Direct Bilirubin AST ALT Alkaline Phosphatase Lactate Dehydrogenase 2166 H C-Reactive Protein 39.00 H Total Protein Albumin Triglycerides Lipase Arterial Blood Glucose Arterial Blood Ionized Calcium Urine WBC (Auto) Coronavirus (PCR) SARS-CoV-2 IgG Ab Crossmatch 05/09/20 05/09/20 05/09/20 12:59 14:20 14:20 WBC RBC Hgb Hct MCV MCH MCHC RDW Lymph % (Auto) [place] % (Auto) Lymph # (Auto) [place] # (Auto) Baso # (Auto) Seg Neutrophils % Seg Neuts % (Manual) Lymphocytes % (Manual) Nucleated RBC % Seg Neutrophils # Seg Neutrophils # Man Lymphocytes # (Manual) Monocytes # (Manual) Eosinophils # (Manual) PT INR APTT D-Dimer 2861.78 H Heparin Anti-Xa Level ABG pH POC ABG pCO2 POC ABG pO2 ABG pO2 ABG HCO3 ABG O2 Saturation ABG Base Excess ABG Hemoglobin ABG Oxyhemoglobin ABG Sodium ABG Potassium ABG Chloride ABG Glucose Oxyhemoglobin Carboxyhemoglobin Sodium Potassium Chloride Carbon Dioxide BUN Creatinine Glucose POC Glucose Lactic Acid 2.20 H* Calcium Magnesium Ferritin 98247.0 H Total Bilirubin Direct Bilirubin AST ALT Alkaline Phosphatase Lactate Dehydrogenase C-Reactive Protein Total Protein Albumin Triglycerides Lipase Arterial Blood Glucose Arterial Blood Ionized Calcium Urine WBC (Auto) Coronavirus (PCR) SARS-CoV-2 IgG Ab Crossmatch 05/09/20 05/09/20 05/09/20 14:20 14:20 15:56 WBC RBC Hgb Hct MCV MCH MCHC RDW Lymph % (Auto) [place] % (Auto) Lymph # (Auto) [place] # (Auto) Baso # (Auto) Seg Neutrophils % Seg Neuts % (Manual) Lymphocytes % (Manual) Nucleated RBC % Seg Neutrophils # Seg Neutrophils # Man Lymphocytes # (Manual) Monocytes # (Manual) Eosinophils # (Manual) PT INR APTT D-Dimer Heparin Anti-Xa Level ABG pH POC ABG pCO2 POC ABG pO2 57.3 L ABG pO2 ABG HCO3 ABG O2 Saturation ABG Base Excess ABG Hemoglobin ABG Oxyhemoglobin 86.3 L ABG Sodium 129.9 L ABG Potassium ABG Chloride ABG Glucose 146 H Oxyhemoglobin Carboxyhemoglobin Sodium Potassium Chloride Carbon Dioxide BUN Creatinine Glucose 143 H POC Glucose Lactic Acid Calcium Magnesium Ferritin 40298.0 H Total Bilirubin Direct Bilirubin AST ALT Alkaline Phosphatase Lactate Dehydrogenase 1953 H C-Reactive Protein 33.50 H Total Protein Albumin Triglycerides Lipase Arterial Blood Glucose 146 H Arterial Blood Ionized Calcium 3.9 L Urine WBC (Auto) Coronavirus (PCR) SARS-CoV-2 IgG Ab Crossmatch 05/10/20 05/10/20 05/10/20 10:32 10:32 18:50 WBC 15.4 H RBC Hgb Hct MCV 97 H MCH 33 H MCHC RDW 13.1 L Lymph % (Auto) [place] % (Auto) Lymph # (Auto) [place] # (Auto) Baso # (Auto) Seg Neutrophils % Seg Neuts % (Manual) 89.0 H Lymphocytes % (Manual) 8.0 L Nucleated RBC % Seg Neutrophils # Seg Neutrophils # Man 13.7 H Lymphocytes # (Manual) Monocytes # (Manual) Eosinophils # (Manual) PT INR APTT D-Dimer Heparin Anti-Xa Level ABG pH POC ABG pCO2 POC ABG pO2 ABG pO2 ABG HCO3 ABG O2 Saturation ABG Base Excess ABG Hemoglobin ABG Oxyhemoglobin ABG Sodium ABG Potassium ABG Chloride ABG Glucose Oxyhemoglobin Carboxyhemoglobin Sodium 136 L Potassium Chloride 97.4 L Carbon Dioxide BUN 37 H Creatinine 1.7 H Glucose 209 H POC Glucose Lactic Acid Calcium Magnesium Ferritin > 2000.0 H Total Bilirubin Direct Bilirubin AST ALT Alkaline Phosphatase Lactate Dehydrogenase C-Reactive Protein Total Protein Albumin Triglycerides Lipase Arterial Blood Glucose Arterial Blood Ionized Calcium Urine WBC (Auto) Coronavirus (PCR) SARS-CoV-2 IgG Ab Crossmatch 05/10/20 05/10/20 05/10/20 18:50 19:00 Unknown WBC RBC Hgb Hct MCV MCH MCHC RDW Lymph % (Auto) [place] % (Auto) Lymph # (Auto) [place] # (Auto) Baso # (Auto) Seg Neutrophils % Seg Neuts % (Manual) Lymphocytes % (Manual) Nucleated RBC % Seg Neutrophils # Seg Neutrophils # Man Lymphocytes # (Manual) Monocytes # (Manual) Eosinophils # (Manual) PT INR APTT D-Dimer > 61367 H Heparin Anti-Xa Level ABG pH POC ABG pCO2 POC ABG pO2 ABG pO2 ABG HCO3 ABG O2 Saturation ABG Base Excess ABG Hemoglobin ABG Oxyhemoglobin ABG Sodium ABG Potassium ABG Chloride ABG Glucose Oxyhemoglobin Carboxyhemoglobin Sodium Potassium Chloride Carbon Dioxide BUN Creatinine Glucose POC Glucose Lactic Acid Calcium Magnesium Ferritin Total Bilirubin Direct Bilirubin AST ALT Alkaline Phosphatase Lactate Dehydrogenase 1879 H C-Reactive Protein 24.80 H Total Protein Albumin Triglycerides Lipase Arterial Blood Glucose Arterial Blood Ionized Calcium Urine WBC (Auto) 11.0 H Coronavirus (PCR) SARS-CoV-2 IgG Ab Crossmatch 05/10/20 05/11/20 05/11/20 Unknown 07:30 07:30 WBC RBC Hgb Hct MCV MCH MCHC RDW Lymph % (Auto) [place] % (Auto) Lymph # (Auto) [place] # (Auto) Baso # (Auto) Seg Neutrophils % Seg Neuts % (Manual) Lymphocytes % (Manual) Nucleated RBC % Seg Neutrophils # Seg Neutrophils # Man Lymphocytes # (Manual) Monocytes # (Manual) Eosinophils # (Manual) PT INR APTT D-Dimer > 2000 H Heparin Anti-Xa Level ABG pH POC ABG pCO2 POC ABG pO2 ABG pO2 ABG HCO3 ABG O2 Saturation ABG Base Excess ABG Hemoglobin ABG Oxyhemoglobin ABG Sodium ABG Potassium ABG Chloride ABG Glucose Oxyhemoglobin Carboxyhemoglobin Sodium Potassium Chloride 96.3 L Carbon Dioxide BUN 36 H Creatinine Glucose 161 H POC Glucose Lactic Acid Calcium 8.3 L Magnesium Ferritin Total Bilirubin 1.50 H Direct Bilirubin 0.6 H AST 178 H ALT 111 H Alkaline Phosphatase Lactate Dehydrogenase C-Reactive Protein Total Protein Albumin 3.0 L Triglycerides Lipase Arterial Blood Glucose Arterial Blood Ionized Calcium Urine WBC (Auto) Coronavirus (PCR) Positive A SARS-CoV-2 IgG Ab Crossmatch 05/11/20 05/11/20 05/11/20 07:30 07:30 07:30 WBC RBC Hgb Hct MCV MCH MCHC RDW Lymph % (Auto) [place] % (Auto) Lymph # (Auto) [place] # (Auto) Baso # (Auto) Seg Neutrophils % Seg Neuts % (Manual) Lymphocytes % (Manual) Nucleated RBC % Seg Neutrophils # Seg Neutrophils # Man Lymphocytes # (Manual) Monocytes # (Manual) Eosinophils # (Manual) PT INR APTT D-Dimer Heparin Anti-Xa Level ABG pH POC ABG pCO2 POC ABG pO2 ABG pO2 ABG HCO3 ABG O2 Saturation ABG Base Excess ABG Hemoglobin ABG Oxyhemoglobin ABG Sodium ABG Potassium ABG Chloride ABG Glucose Oxyhemoglobin Carboxyhemoglobin Sodium Potassium Chloride Carbon Dioxide BUN Creatinine Glucose POC Glucose Lactic Acid Calcium Magnesium Ferritin 20167.0 H Total Bilirubin Direct Bilirubin AST ALT Alkaline Phosphatase Lactate Dehydrogenase 1523 H C-Reactive Protein 12.90 H Total Protein Albumin Triglycerides Lipase Arterial Blood Glucose Arterial Blood Ionized Calcium Urine WBC (Auto) Coronavirus (PCR) SARS-CoV-2 IgG Ab Reactive A Crossmatch 05/13/20 05/13/20 05/15/20 05:20 05:20 08:15 WBC RBC Hgb Hct MCV MCH MCHC RDW Lymph % (Auto) [place] % (Auto) Lymph # (Auto) [place] # (Auto) Baso # (Auto) Seg Neutrophils % Seg Neuts % (Manual) Lymphocytes % (Manual) Nucleated RBC % Seg Neutrophils # Seg Neutrophils # Man Lymphocytes # (Manual) Monocytes # (Manual) Eosinophils # (Manual) PT INR APTT D-Dimer > 97293 H 5318.28 H Heparin Anti-Xa Level ABG pH POC ABG pCO2 POC ABG pO2 ABG pO2 ABG HCO3 ABG O2 Saturation ABG Base Excess ABG Hemoglobin ABG Oxyhemoglobin ABG Sodium ABG Potassium ABG Chloride ABG Glucose Oxyhemoglobin Carboxyhemoglobin Sodium Potassium Chloride Carbon Dioxide 32 H BUN 30 H Creatinine Glucose 156 H POC Glucose Lactic Acid Calcium Magnesium 2.60 H Ferritin Total Bilirubin 1.40 H Direct Bilirubin AST 121 H ALT 119 H Alkaline Phosphatase Lactate Dehydrogenase 957 H C-Reactive Protein 4.00 H Total Protein Albumin 3.0 L Triglycerides Lipase Arterial Blood Glucose Arterial Blood Ionized Calcium Urine WBC (Auto) Coronavirus (PCR) SARS-CoV-2 IgG Ab Crossmatch 05/15/20 05/15/20 05/15/20 08:15 08:15 08:15 WBC 12.4 H RBC Hgb Hct MCV 98 H MCH 33 H MCHC RDW Lymph % (Auto) 9.7 L [place] % (Auto) Lymph # (Auto) [place] # (Auto) Baso # (Auto) Seg Neutrophils % 86.8 H Seg Neuts % (Manual) Lymphocytes % (Manual) Nucleated RBC % Seg Neutrophils # 10.8 H Seg Neutrophils # Man Lymphocytes # (Manual) Monocytes # (Manual) Eosinophils # (Manual) PT INR APTT D-Dimer Heparin Anti-Xa Level ABG pH POC ABG pCO2 POC ABG pO2 ABG pO2 ABG HCO3 ABG O2 Saturation ABG Base Excess ABG Hemoglobin ABG Oxyhemoglobin ABG Sodium ABG Potassium ABG Chloride ABG Glucose Oxyhemoglobin Carboxyhemoglobin Sodium Potassium Chloride 94.8 L Carbon Dioxide 32 H BUN 22 H Creatinine Glucose 115 H POC Glucose Lactic Acid Calcium 8.3 L Magnesium Ferritin 2494.0 H Total Bilirubin Direct Bilirubin AST 73 H ALT 121 H Alkaline Phosphatase Lactate Dehydrogenase 835 H C-Reactive Protein 3.40 H Total Protein 6.1 L Albumin 3.0 L Triglycerides Lipase Arterial Blood Glucose Arterial Blood Ionized Calcium Urine WBC (Auto) Coronavirus (PCR) SARS-CoV-2 IgG Ab Crossmatch 05/17/20 05/17/20 05/17/20 05:50 05:50 05:50 WBC RBC Hgb Hct MCV MCH MCHC RDW Lymph % (Auto) [place] % (Auto) Lymph # (Auto) [place] # (Auto) Baso # (Auto) Seg Neutrophils % Seg Neuts % (Manual) Lymphocytes % (Manual) Nucleated RBC % Seg Neutrophils # Seg Neutrophils # Man Lymphocytes # (Manual) Monocytes # (Manual) Eosinophils # (Manual) PT INR APTT D-Dimer 2911.42 H Heparin Anti-Xa Level ABG pH POC ABG pCO2 POC ABG pO2 ABG pO2 ABG HCO3 ABG O2 Saturation ABG Base Excess ABG Hemoglobin ABG Oxyhemoglobin ABG Sodium ABG Potassium ABG Chloride ABG Glucose Oxyhemoglobin Carboxyhemoglobin Sodium 136 L Potassium Chloride 96.0 L Carbon Dioxide 34 H BUN 22 H Creatinine Glucose 140 H POC Glucose Lactic Acid Calcium Magnesium Ferritin 2082.0 H Total Bilirubin Direct Bilirubin AST ALT 75 H Alkaline Phosphatase Lactate Dehydrogenase 601 H C-Reactive Protein 2.70 H Total Protein Albumin 2.9 L Triglycerides Lipase Arterial Blood Glucose Arterial Blood Ionized Calcium Urine WBC (Auto) Coronavirus (PCR) SARS-CoV-2 IgG Ab Crossmatch 05/17/20 05/18/20 05/20/20 05:50 12:22 08:16 WBC RBC Hgb Hct MCV 98 H MCH 33 H MCHC RDW Lymph % (Auto) 8.0 L [place] % (Auto) Lymph # (Auto) 0.8 L [place] # (Auto) Baso # (Auto) Seg Neutrophils % 89.3 H Seg Neuts % (Manual) Lymphocytes % (Manual) Nucleated RBC % Seg Neutrophils # 8.8 H Seg Neutrophils # Man Lymphocytes # (Manual) Monocytes # (Manual) Eosinophils # (Manual) PT INR APTT D-Dimer 1887.82 H Heparin Anti-Xa Level ABG pH POC ABG pCO2 POC ABG pO2 ABG pO2 ABG HCO3 ABG O2 Saturation ABG Base Excess ABG Hemoglobin ABG Oxyhemoglobin ABG Sodium ABG Potassium ABG Chloride ABG Glucose Oxyhemoglobin Carboxyhemoglobin Sodium Potassium Chloride Carbon Dioxide BUN Creatinine Glucose POC Glucose 178 H Lactic Acid Calcium Magnesium Ferritin Total Bilirubin Direct Bilirubin AST ALT Alkaline Phosphatase Lactate Dehydrogenase C-Reactive Protein Total Protein Albumin Triglycerides Lipase Arterial Blood Glucose Arterial Blood Ionized Calcium Urine WBC (Auto) Coronavirus (PCR) SARS-CoV-2 IgG Ab Crossmatch 05/20/20 05/20/20 05/21/20 08:16 08:16 21:10 WBC RBC Hgb Hct MCV MCH MCHC RDW Lymph % (Auto) [place] % (Auto) Lymph # (Auto) [place] # (Auto) Baso # (Auto) Seg Neutrophils % Seg Neuts % (Manual) Lymphocytes % (Manual) Nucleated RBC % Seg Neutrophils # Seg Neutrophils # Man Lymphocytes # (Manual) Monocytes # (Manual) Eosinophils # (Manual) PT INR APTT D-Dimer Heparin Anti-Xa Level ABG pH 7.483 H POC ABG pCO2 POC ABG pO2 ABG pO2 50.0 L ABG HCO3 27.0 H ABG O2 Saturation 86.2 L ABG Base Excess 3.7 H ABG Hemoglobin ABG Oxyhemoglobin ABG Sodium ABG Potassium ABG Chloride ABG Glucose Oxyhemoglobin 84.2 L Carboxyhemoglobin Sodium Potassium Chloride Carbon Dioxide BUN Creatinine Glucose POC Glucose Lactic Acid Calcium Magnesium Ferritin 1960.0 H Total Bilirubin Direct Bilirubin AST ALT Alkaline Phosphatase Lactate Dehydrogenase 705 H C-Reactive Protein 3.10 H Total Protein Albumin Triglycerides Lipase Arterial Blood Glucose Arterial Blood Ionized Calcium Urine WBC (Auto) Coronavirus (PCR) SARS-CoV-2 IgG Ab Crossmatch 05/22/20 05/22/20 05/22/20 04:01 07:53 07:53 WBC 19.2 H RBC Hgb Hct MCV 98 H MCH 34 H MCHC RDW Lymph % (Auto) [place] % (Auto) Lymph # (Auto) [place] # (Auto) Baso # (Auto) Seg Neutrophils % Seg Neuts % (Manual) 96.0 H Lymphocytes % (Manual) 1.0 L Nucleated RBC % Seg Neutrophils # Seg Neutrophils # Man 18.4 H Lymphocytes # (Manual) 0.2 L Monocytes # (Manual) Eosinophils # (Manual) PT INR APTT D-Dimer Heparin Anti-Xa Level ABG pH POC ABG pCO2 53.8 H POC ABG pO2 125.5 H ABG pO2 ABG HCO3 ABG O2 Saturation ABG Base Excess ABG Hemoglobin ABG Oxyhemoglobin ABG Sodium 131.8 L ABG Potassium 4.8 H ABG Chloride 94.0 L ABG Glucose 163 H Oxyhemoglobin Carboxyhemoglobin Sodium 131 L Potassium Chloride 93.4 L Carbon Dioxide BUN 40 H Creatinine Glucose 176 H POC Glucose Lactic Acid Calcium Magnesium 2.70 H Ferritin Total Bilirubin 1.80 H Direct Bilirubin AST 45 H ALT 116 H Alkaline Phosphatase 181 H Lactate Dehydrogenase C-Reactive Protein Total Protein Albumin 2.6 L Triglycerides Lipase Arterial Blood Glucose 163 H Arterial Blood Ionized Calcium 4.5 L Urine WBC (Auto) Coronavirus (PCR) SARS-CoV-2 IgG Ab Crossmatch 05/23/20 05/24/20 05/24/20 04:17 03:07 04:08 WBC RBC Hgb Hct MCV MCH MCHC RDW Lymph % (Auto) [place] % (Auto) Lymph # (Auto) [place] # (Auto) Baso # (Auto) Seg Neutrophils % Seg Neuts % (Manual) Lymphocytes % (Manual) Nucleated RBC % Seg Neutrophils # Seg Neutrophils # Man Lymphocytes # (Manual) Monocytes # (Manual) Eosinophils # (Manual) PT INR APTT D-Dimer Heparin Anti-Xa Level ABG pH 7.328 L POC ABG pCO2 POC ABG pO2 ABG pO2 72.8 L 73.4 L ABG HCO3 31.0 H 34.0 H ABG O2 Saturation 93.5 L ABG Base Excess 3.5 H 7.7 H ABG Hemoglobin 13.3 L 12.1 L ABG Oxyhemoglobin ABG Sodium ABG Potassium ABG Chloride ABG Glucose Oxyhemoglobin 91.5 L 94.3 L Carboxyhemoglobin Sodium Potassium Chloride Carbon Dioxide BUN Creatinine Glucose POC Glucose 155 H Lactic Acid Calcium Magnesium Ferritin Total Bilirubin Direct Bilirubin AST ALT Alkaline Phosphatase Lactate Dehydrogenase C-Reactive Protein Total Protein Albumin Triglycerides Lipase Arterial Blood Glucose Arterial Blood Ionized Calcium Urine WBC (Auto) Coronavirus (PCR) SARS-CoV-2 IgG Ab Crossmatch 05/24/20 05/24/20 05/24/20 09:33 12:21 17:52 WBC RBC Hgb Hct MCV MCH MCHC RDW Lymph % (Auto) [place] % (Auto) Lymph # (Auto) [place] # (Auto) Baso # (Auto) Seg Neutrophils % Seg Neuts % (Manual) Lymphocytes % (Manual) Nucleated RBC % Seg Neutrophils # Seg Neutrophils # Man Lymphocytes # (Manual) Monocytes # (Manual) Eosinophils # (Manual) PT INR APTT D-Dimer Heparin Anti-Xa Level ABG pH POC ABG pCO2 POC ABG pO2 ABG pO2 ABG HCO3 ABG O2 Saturation ABG Base Excess ABG Hemoglobin ABG Oxyhemoglobin ABG Sodium ABG Potassium ABG Chloride ABG Glucose Oxyhemoglobin Carboxyhemoglobin Sodium Potassium Chloride Carbon Dioxide 34 H D BUN 28 H Creatinine 0.7 L Glucose 168 H POC Glucose 173 H 164 H Lactic Acid Calcium Magnesium Ferritin Total Bilirubin Direct Bilirubin AST ALT Alkaline Phosphatase Lactate Dehydrogenase C-Reactive Protein Total Protein Albumin Triglycerides Lipase Arterial Blood Glucose Arterial Blood Ionized Calcium Urine WBC (Auto) Coronavirus (PCR) SARS-CoV-2 IgG Ab Crossmatch 05/24/20 05/25/20 05/25/20 23:47 04:29 05:46 WBC RBC Hgb Hct MCV MCH MCHC RDW Lymph % (Auto) [place] % (Auto) Lymph # (Auto) [place] # (Auto) Baso # (Auto) Seg Neutrophils % Seg Neuts % (Manual) Lymphocytes % (Manual) Nucleated RBC % Seg Neutrophils # Seg Neutrophils # Man Lymphocytes # (Manual) Monocytes # (Manual) Eosinophils # (Manual) PT INR APTT D-Dimer Heparin Anti-Xa Level ABG pH POC ABG pCO2 68.6 H POC ABG pO2 ABG pO2 ABG HCO3 ABG O2 Saturation ABG Base Excess ABG Hemoglobin ABG Oxyhemoglobin ABG Sodium ABG Potassium 4.7 H ABG Chloride ABG Glucose 226 H Oxyhemoglobin Carboxyhemoglobin Sodium Potassium Chloride Carbon Dioxide BUN Creatinine Glucose POC Glucose 171 H 201 H Lactic Acid Calcium Magnesium Ferritin Total Bilirubin Direct Bilirubin AST ALT Alkaline Phosphatase Lactate Dehydrogenase C-Reactive Protein Total Protein Albumin Triglycerides Lipase Arterial Blood Glucose 226 H Arterial Blood Ionized Calcium Urine WBC (Auto) Coronavirus (PCR) SARS-CoV-2 IgG Ab Crossmatch 05/25/20 05/25/20 05/25/20 08:37 08:37 12:38 WBC 12.0 H RBC 3.64 L Hgb Hct MCV 99 H MCH 33 H MCHC RDW Lymph % (Auto) [place] % (Auto) Lymph # (Auto) [place] # (Auto) Baso # (Auto) Seg Neutrophils % Seg Neuts % (Manual) Lymphocytes % (Manual) Nucleated RBC % Seg Neutrophils # Seg Neutrophils # Man Lymphocytes # (Manual) Monocytes # (Manual) Eosinophils # (Manual) PT INR APTT D-Dimer Heparin Anti-Xa Level ABG pH POC ABG pCO2 POC ABG pO2 ABG pO2 ABG HCO3 ABG O2 Saturation ABG Base Excess ABG Hemoglobin ABG Oxyhemoglobin ABG Sodium ABG Potassium ABG Chloride ABG Glucose Oxyhemoglobin Carboxyhemoglobin Sodium Potassium Chloride 97.3 L Carbon Dioxide 35 H BUN 25 H Creatinine 0.7 L Glucose 191 H POC Glucose 182 H Lactic Acid Calcium Magnesium Ferritin Total Bilirubin Direct Bilirubin AST ALT Alkaline Phosphatase Lactate Dehydrogenase C-Reactive Protein Total Protein Albumin Triglycerides Lipase Arterial Blood Glucose Arterial Blood Ionized Calcium Urine WBC (Auto) Coronavirus (PCR) SARS-CoV-2 IgG Ab Crossmatch 05/25/20 05/26/20 05/26/20 18:16 00:06 04:50 WBC RBC Hgb Hct MCV MCH MCHC RDW Lymph % (Auto) [place] % (Auto) Lymph # (Auto) [place] # (Auto) Baso # (Auto) Seg Neutrophils % Seg Neuts % (Manual) Lymphocytes % (Manual) Nucleated RBC % Seg Neutrophils # Seg Neutrophils # Man Lymphocytes # (Manual) Monocytes # (Manual) Eosinophils # (Manual) PT INR APTT D-Dimer Heparin Anti-Xa Level ABG pH POC ABG pCO2 POC ABG pO2 ABG pO2 221.5 H ABG HCO3 40.4 H ABG O2 Saturation 99.3 H ABG Base Excess 12.8 H ABG Hemoglobin 10.4 L ABG Oxyhemoglobin ABG Sodium ABG Potassium ABG Chloride ABG Glucose Oxyhemoglobin Carboxyhemoglobin Sodium Potassium Chloride Carbon Dioxide BUN Creatinine Glucose POC Glucose 176 H 152 H Lactic Acid Calcium Magnesium Ferritin Total Bilirubin Direct Bilirubin AST ALT Alkaline Phosphatase Lactate Dehydrogenase C-Reactive Protein Total Protein Albumin Triglycerides Lipase Arterial Blood Glucose Arterial Blood Ionized Calcium Urine WBC (Auto) Coronavirus (PCR) SARS-CoV-2 IgG Ab Crossmatch 05/26/20 05/26/20 05/26/20 06:11 07:51 07:51 WBC 13.4 H RBC 3.64 L Hgb Hct MCV 98 H MCH 33 H MCHC RDW Lymph % (Auto) [place] % (Auto) Lymph # (Auto) [place] # (Auto) Baso # (Auto) Seg Neutrophils % Seg Neuts % (Manual) Lymphocytes % (Manual) Nucleated RBC % Seg Neutrophils # Seg Neutrophils # Man Lymphocytes # (Manual) Monocytes # (Manual) Eosinophils # (Manual) PT INR APTT D-Dimer Heparin Anti-Xa Level ABG pH POC ABG pCO2 POC ABG pO2 ABG pO2 ABG HCO3 ABG O2 Saturation ABG Base Excess ABG Hemoglobin ABG Oxyhemoglobin ABG Sodium ABG Potassium ABG Chloride ABG Glucose Oxyhemoglobin Carboxyhemoglobin Sodium Potassium Chloride 96.6 L Carbon Dioxide 39 H BUN 29 H Creatinine 0.7 L Glucose 174 H POC Glucose 165 H Lactic Acid Calcium Magnesium Ferritin Total Bilirubin Direct Bilirubin AST ALT Alkaline Phosphatase Lactate Dehydrogenase C-Reactive Protein Total Protein Albumin Triglycerides Lipase Arterial Blood Glucose Arterial Blood Ionized Calcium Urine WBC (Auto) Coronavirus (PCR) SARS-CoV-2 IgG Ab Crossmatch 05/26/20 05/27/20 05/27/20 23:23 03:43 05:29 WBC RBC Hgb Hct MCV MCH MCHC RDW Lymph % (Auto) [place] % (Auto) Lymph # (Auto) [place] # (Auto) Baso # (Auto) Seg Neutrophils % Seg Neuts % (Manual) Lymphocytes % (Manual) Nucleated RBC % Seg Neutrophils # Seg Neutrophils # Man Lymphocytes # (Manual) Monocytes # (Manual) Eosinophils # (Manual) PT INR APTT D-Dimer Heparin Anti-Xa Level ABG pH 7.480 H POC ABG pCO2 52.4 H POC ABG pO2 61.4 L ABG pO2 ABG HCO3 ABG O2 Saturation ABG Base Excess ABG Hemoglobin ABG Oxyhemoglobin ABG Sodium 134.9 L ABG Potassium ABG Chloride 95.0 L ABG Glucose 221 H Oxyhemoglobin Carboxyhemoglobin Sodium Potassium Chloride Carbon Dioxide BUN Creatinine Glucose POC Glucose 169 H 227 H Lactic Acid Calcium Magnesium Ferritin Total Bilirubin Direct Bilirubin AST ALT Alkaline Phosphatase Lactate Dehydrogenase C-Reactive Protein Total Protein Albumin Triglycerides Lipase Arterial Blood Glucose 221 H Arterial Blood Ionized Calcium 4.5 L Urine WBC (Auto) Coronavirus (PCR) SARS-CoV-2 IgG Ab Crossmatch 05/27/20 05/27/20 05/27/20 07:19 12:18 13:50 WBC RBC Hgb Hct MCV MCH MCHC RDW Lymph % (Auto) [place] % (Auto) Lymph # (Auto) [place] # (Auto) Baso # (Auto) Seg Neutrophils % Seg Neuts % (Manual) Lymphocytes % (Manual) Nucleated RBC % Seg Neutrophils # Seg Neutrophils # Man Lymphocytes # (Manual) Monocytes # (Manual) Eosinophils # (Manual) PT INR APTT D-Dimer Heparin Anti-Xa Level ABG pH POC ABG pCO2 POC ABG pO2 ABG pO2 ABG HCO3 ABG O2 Saturation ABG Base Excess ABG Hemoglobin ABG Oxyhemoglobin ABG Sodium ABG Potassium ABG Chloride ABG Glucose Oxyhemoglobin Carboxyhemoglobin Sodium Potassium Chloride Carbon Dioxide BUN Creatinine Glucose POC Glucose 114 H 148 H Lactic Acid Calcium Magnesium Ferritin Total Bilirubin Direct Bilirubin AST ALT Alkaline Phosphatase Lactate Dehydrogenase C-Reactive Protein Total Protein Albumin Triglycerides 247 H Lipase Arterial Blood Glucose Arterial Blood Ionized Calcium Urine WBC (Auto) Coronavirus (PCR) SARS-CoV-2 IgG Ab Crossmatch 05/28/20 05/28/20 05/28/20 00:13 04:16 05:22 WBC RBC Hgb Hct MCV MCH MCHC RDW Lymph % (Auto) [place] % (Auto) Lymph # (Auto) [place] # (Auto) Baso # (Auto) Seg Neutrophils % Seg Neuts % (Manual) Lymphocytes % (Manual) Nucleated RBC % Seg Neutrophils # Seg Neutrophils # Man Lymphocytes # (Manual) Monocytes # (Manual) Eosinophils # (Manual) PT INR APTT D-Dimer Heparin Anti-Xa Level ABG pH POC ABG pCO2 64.4 H POC ABG pO2 60.5 L ABG pO2 ABG HCO3 ABG O2 Saturation ABG Base Excess ABG Hemoglobin ABG Oxyhemoglobin ABG Sodium ABG Potassium ABG Chloride 95.0 L ABG Glucose 209 H Oxyhemoglobin Carboxyhemoglobin Sodium Potassium Chloride Carbon Dioxide BUN Creatinine Glucose POC Glucose 155 H 186 H Lactic Acid Calcium Magnesium Ferritin Total Bilirubin Direct Bilirubin AST ALT Alkaline Phosphatase Lactate Dehydrogenase C-Reactive Protein Total Protein Albumin Triglycerides Lipase Arterial Blood Glucose 209 H Arterial Blood Ionized Calcium Urine WBC (Auto) Coronavirus (PCR) SARS-CoV-2 IgG Ab Crossmatch 05/28/20 05/28/20 05/29/20 12:45 17:39 00:37 WBC RBC Hgb Hct MCV MCH MCHC RDW Lymph % (Auto) [place] % (Auto) Lymph # (Auto) [place] # (Auto) Baso # (Auto) Seg Neutrophils % Seg Neuts % (Manual) Lymphocytes % (Manual) Nucleated RBC % Seg Neutrophils # Seg Neutrophils # Man Lymphocytes # (Manual) Monocytes # (Manual) Eosinophils # (Manual) PT INR APTT D-Dimer Heparin Anti-Xa Level ABG pH POC ABG pCO2 POC ABG pO2 ABG pO2 ABG HCO3 ABG O2 Saturation ABG Base Excess ABG Hemoglobin ABG Oxyhemoglobin ABG Sodium ABG Potassium ABG Chloride ABG Glucose Oxyhemoglobin Carboxyhemoglobin Sodium Potassium Chloride Carbon Dioxide BUN Creatinine Glucose POC Glucose 143 H 164 H 221 H Lactic Acid Calcium Magnesium Ferritin Total Bilirubin Direct Bilirubin AST ALT Alkaline Phosphatase Lactate Dehydrogenase C-Reactive Protein Total Protein Albumin Triglycerides Lipase Arterial Blood Glucose Arterial Blood Ionized Calcium Urine WBC (Auto) Coronavirus (PCR) SARS-CoV-2 IgG Ab Crossmatch 05/29/20 05/29/20 05/29/20 04:15 05:33 12:34 WBC RBC Hgb Hct MCV MCH MCHC RDW Lymph % (Auto) [place] % (Auto) Lymph # (Auto) [place] # (Auto) Baso # (Auto) Seg Neutrophils % Seg Neuts % (Manual) Lymphocytes % (Manual) Nucleated RBC % Seg Neutrophils # Seg Neutrophils # Man Lymphocytes # (Manual) Monocytes # (Manual) Eosinophils # (Manual) PT INR APTT D-Dimer Heparin Anti-Xa Level ABG pH 7.463 H POC ABG pCO2 56.3 H POC ABG pO2 81.2 L ABG pO2 ABG HCO3 ABG O2 Saturation ABG Base Excess ABG Hemoglobin ABG Oxyhemoglobin ABG Sodium ABG Potassium ABG Chloride 96.0 L ABG Glucose 194 H Oxyhemoglobin Carboxyhemoglobin Sodium Potassium Chloride Carbon Dioxide BUN Creatinine Glucose POC Glucose 133 H 221 H Lactic Acid Calcium Magnesium Ferritin Total Bilirubin Direct Bilirubin AST ALT Alkaline Phosphatase Lactate Dehydrogenase C-Reactive Protein Total Protein Albumin Triglycerides Lipase Arterial Blood Glucose 194 H Arterial Blood Ionized Calcium 4.5 L Urine WBC (Auto) Coronavirus (PCR) SARS-CoV-2 IgG Ab Crossmatch 05/29/20 05/30/20 05/30/20 18:07 00:12 05:38 WBC RBC Hgb Hct MCV MCH MCHC RDW Lymph % (Auto) [place] % (Auto) Lymph # (Auto) [place] # (Auto) Baso # (Auto) Seg Neutrophils % Seg Neuts % (Manual) Lymphocytes % (Manual) Nucleated RBC % Seg Neutrophils # Seg Neutrophils # Man Lymphocytes # (Manual) Monocytes # (Manual) Eosinophils # (Manual) PT INR APTT D-Dimer Heparin Anti-Xa Level ABG pH POC ABG pCO2 POC ABG pO2 ABG pO2 ABG HCO3 ABG O2 Saturation ABG Base Excess ABG Hemoglobin ABG Oxyhemoglobin ABG Sodium ABG Potassium ABG Chloride ABG Glucose Oxyhemoglobin Carboxyhemoglobin Sodium Potassium Chloride Carbon Dioxide BUN Creatinine Glucose POC Glucose 162 H 190 H 208 H Lactic Acid Calcium Magnesium Ferritin Total Bilirubin Direct Bilirubin AST ALT Alkaline Phosphatase Lactate Dehydrogenase C-Reactive Protein Total Protein Albumin Triglycerides Lipase Arterial Blood Glucose Arterial Blood Ionized Calcium Urine WBC (Auto) Coronavirus (PCR) SARS-CoV-2 IgG Ab Crossmatch 05/30/20 05/30/20 05/30/20 09:30 11:35 11:54 WBC 12.4 H RBC 3.48 L Hgb 11.3 L Hct 34.6 L MCV 99 H MCH 33 H MCHC RDW Lymph % (Auto) [place] % (Auto) Lymph # (Auto) [place] # (Auto) Baso # (Auto) Seg Neutrophils % Seg Neuts % (Manual) Lymphocytes % (Manual) Nucleated RBC % Seg Neutrophils # Seg Neutrophils # Man Lymphocytes # (Manual) Monocytes # (Manual) Eosinophils # (Manual) PT INR APTT D-Dimer Heparin Anti-Xa Level ABG pH 7.455 H POC ABG pCO2 57.5 H POC ABG pO2 81.5 L ABG pO2 ABG HCO3 ABG O2 Saturation ABG Base Excess ABG Hemoglobin ABG Oxyhemoglobin ABG Sodium ABG Potassium ABG Chloride 96.0 L ABG Glucose 204 H Oxyhemoglobin Carboxyhemoglobin Sodium Potassium Chloride Carbon Dioxide BUN Creatinine Glucose POC Glucose 183 H Lactic Acid Calcium Magnesium Ferritin Total Bilirubin Direct Bilirubin AST ALT Alkaline Phosphatase Lactate Dehydrogenase C-Reactive Protein Total Protein Albumin Triglycerides Lipase Arterial Blood Glucose 204 H Arterial Blood Ionized Calcium Urine WBC (Auto) Coronavirus (PCR) SARS-CoV-2 IgG Ab Crossmatch 05/30/20 05/31/20 05/31/20 18:01 00:10 03:22 WBC RBC Hgb Hct MCV MCH MCHC RDW Lymph % (Auto) [place] % (Auto) Lymph # (Auto) [place] # (Auto) Baso # (Auto) Seg Neutrophils % Seg Neuts % (Manual) Lymphocytes % (Manual) Nucleated RBC % Seg Neutrophils # Seg Neutrophils # Man Lymphocytes # (Manual) Monocytes # (Manual) Eosinophils # (Manual) PT INR APTT D-Dimer Heparin Anti-Xa Level ABG pH POC ABG pCO2 60.4 H POC ABG pO2 71.5 L ABG pO2 ABG HCO3 ABG O2 Saturation ABG Base Excess ABG Hemoglobin ABG Oxyhemoglobin ABG Sodium ABG Potassium ABG Chloride 96.0 L ABG Glucose 169 H Oxyhemoglobin Carboxyhemoglobin Sodium Potassium Chloride Carbon Dioxide BUN Creatinine Glucose POC Glucose 184 H 135 H Lactic Acid Calcium Magnesium Ferritin Total Bilirubin Direct Bilirubin AST ALT Alkaline Phosphatase Lactate Dehydrogenase C-Reactive Protein Total Protein Albumin Triglycerides Lipase Arterial Blood Glucose 169 H Arterial Blood Ionized Calcium 4.5 L Urine WBC (Auto) Coronavirus (PCR) SARS-CoV-2 IgG Ab Crossmatch 05/31/20 05/31/20 05/31/20 05:24 11:18 14:41 WBC RBC Hgb Hct MCV MCH MCHC RDW Lymph % (Auto) [place] % (Auto) Lymph # (Auto) [place] # (Auto) Baso # (Auto) Seg Neutrophils % Seg Neuts % (Manual) Lymphocytes % (Manual) Nucleated RBC % Seg Neutrophils # Seg Neutrophils # Man Lymphocytes # (Manual) Monocytes # (Manual) Eosinophils # (Manual) PT INR APTT D-Dimer Heparin Anti-Xa Level ABG pH POC ABG pCO2 POC ABG pO2 ABG pO2 ABG HCO3 ABG O2 Saturation ABG Base Excess ABG Hemoglobin ABG Oxyhemoglobin ABG Sodium ABG Potassium ABG Chloride ABG Glucose Oxyhemoglobin Carboxyhemoglobin Sodium Potassium Chloride 96.8 L Carbon Dioxide 37 H BUN 31 H Creatinine 0.6 L Glucose 213 H POC Glucose 164 H 208 H Lactic Acid Calcium Magnesium Ferritin Total Bilirubin Direct Bilirubin AST ALT Alkaline Phosphatase Lactate Dehydrogenase C-Reactive Protein Total Protein Albumin Triglycerides Lipase Arterial Blood Glucose Arterial Blood Ionized Calcium Urine WBC (Auto) Coronavirus (PCR) SARS-CoV-2 IgG Ab Crossmatch 05/31/20 05/31/20 06/01/20 17:37 23:47 03:48 WBC RBC Hgb Hct MCV MCH MCHC RDW Lymph % (Auto) [place] % (Auto) Lymph # (Auto) [place] # (Auto) Baso # (Auto) Seg Neutrophils % Seg Neuts % (Manual) Lymphocytes % (Manual) Nucleated RBC % Seg Neutrophils # Seg Neutrophils # Man Lymphocytes # (Manual) Monocytes # (Manual) Eosinophils # (Manual) PT INR APTT D-Dimer Heparin Anti-Xa Level ABG pH POC ABG pCO2 59.7 H POC ABG pO2 73.9 L ABG pO2 ABG HCO3 ABG O2 Saturation ABG Base Excess ABG Hemoglobin ABG Oxyhemoglobin ABG Sodium ABG Potassium ABG Chloride 95.0 L ABG Glucose 256 H Oxyhemoglobin Carboxyhemoglobin Sodium Potassium Chloride Carbon Dioxide BUN Creatinine Glucose POC Glucose 168 H 178 H Lactic Acid Calcium Magnesium Ferritin Total Bilirubin Direct Bilirubin AST ALT Alkaline Phosphatase Lactate Dehydrogenase C-Reactive Protein Total Protein Albumin Triglycerides Lipase Arterial Blood Glucose 256 H Arterial Blood Ionized Calcium Urine WBC (Auto) Coronavirus (PCR) SARS-CoV-2 IgG Ab Crossmatch 06/01/20 06/01/20 06/01/20 05:01 07:47 07:47 WBC 14.4 H RBC 3.46 L Hgb 11.1 L Hct 34.3 L MCV 99 H MCH MCHC RDW Lymph % (Auto) [place] % (Auto) Lymph # (Auto) [place] # (Auto) Baso # (Auto) Seg Neutrophils % Seg Neuts % (Manual) 86.0 H Lymphocytes % (Manual) 9.0 L Nucleated RBC % Seg Neutrophils # Seg Neutrophils # Man 12.4 H Lymphocytes # (Manual) Monocytes # (Manual) Eosinophils # (Manual) PT INR APTT D-Dimer Heparin Anti-Xa Level ABG pH POC ABG pCO2 POC ABG pO2 ABG pO2 ABG HCO3 ABG O2 Saturation ABG Base Excess ABG Hemoglobin ABG Oxyhemoglobin ABG Sodium ABG Potassium ABG Chloride ABG Glucose Oxyhemoglobin Carboxyhemoglobin Sodium Potassium Chloride Carbon Dioxide BUN Creatinine Glucose POC Glucose 197 H Lactic Acid Calcium Magnesium Ferritin Total Bilirubin Direct Bilirubin AST ALT Alkaline Phosphatase Lactate Dehydrogenase C-Reactive Protein Total Protein Albumin Triglycerides 244 H Lipase Arterial Blood Glucose Arterial Blood Ionized Calcium Urine WBC (Auto) Coronavirus (PCR) SARS-CoV-2 IgG Ab Crossmatch 06/01/20 06/01/20 06/01/20 07:47 11:46 18:15 WBC RBC Hgb Hct MCV MCH MCHC RDW Lymph % (Auto) [place] % (Auto) Lymph # (Auto) [place] # (Auto) Baso # (Auto) Seg Neutrophils % Seg Neuts % (Manual) Lymphocytes % (Manual) Nucleated RBC % Seg Neutrophils # Seg Neutrophils # Man Lymphocytes # (Manual) Monocytes # (Manual) Eosinophils # (Manual) PT INR APTT D-Dimer Heparin Anti-Xa Level ABG pH POC ABG pCO2 POC ABG pO2 ABG pO2 ABG HCO3 ABG O2 Saturation ABG Base Excess ABG Hemoglobin ABG Oxyhemoglobin ABG Sodium ABG Potassium ABG Chloride ABG Glucose Oxyhemoglobin Carboxyhemoglobin Sodium Potassium Chloride 95.4 L Carbon Dioxide 35 H BUN 30 H Creatinine 0.5 L Glucose 214 H POC Glucose 181 H 221 H Lactic Acid Calcium Magnesium Ferritin Total Bilirubin Direct Bilirubin AST 54 H ALT 235 H Alkaline Phosphatase Lactate Dehydrogenase C-Reactive Protein Total Protein Albumin 2.9 L Triglycerides Lipase Arterial Blood Glucose Arterial Blood Ionized Calcium Urine WBC (Auto) Coronavirus (PCR) SARS-CoV-2 IgG Ab Crossmatch 06/01/20 06/02/20 06/02/20 23:12 04:00 05:31 WBC RBC Hgb Hct MCV MCH MCHC RDW Lymph % (Auto) [place] % (Auto) Lymph # (Auto) [place] # (Auto) Baso # (Auto) Seg Neutrophils % Seg Neuts % (Manual) Lymphocytes % (Manual) Nucleated RBC % Seg Neutrophils # Seg Neutrophils # Man Lymphocytes # (Manual) Monocytes # (Manual) Eosinophils # (Manual) PT INR APTT D-Dimer Heparin Anti-Xa Level ABG pH 7.465 H POC ABG pCO2 POC ABG pO2 ABG pO2 203.4 H ABG HCO3 41.2 H ABG O2 Saturation 99.3 H ABG Base Excess 15.1 H ABG Hemoglobin 11.5 L ABG Oxyhemoglobin ABG Sodium ABG Potassium ABG Chloride ABG Glucose Oxyhemoglobin Carboxyhemoglobin Sodium Potassium Chloride Carbon Dioxide BUN Creatinine Glucose POC Glucose 197 H 184 H Lactic Acid Calcium Magnesium Ferritin Total Bilirubin Direct Bilirubin AST ALT Alkaline Phosphatase Lactate Dehydrogenase C-Reactive Protein Total Protein Albumin Triglycerides Lipase Arterial Blood Glucose Arterial Blood Ionized Calcium Urine WBC (Auto) Coronavirus (PCR) SARS-CoV-2 IgG Ab Crossmatch 06/02/20 06/02/20 06/02/20 11:49 18:06 23:00 WBC RBC Hgb Hct MCV MCH MCHC RDW Lymph % (Auto) [place] % (Auto) Lymph # (Auto) [place] # (Auto) Baso # (Auto) Seg Neutrophils % Seg Neuts % (Manual) Lymphocytes % (Manual) Nucleated RBC % Seg Neutrophils # Seg Neutrophils # Man Lymphocytes # (Manual) Monocytes # (Manual) Eosinophils # (Manual) PT INR APTT D-Dimer Heparin Anti-Xa Level ABG pH POC ABG pCO2 POC ABG pO2 ABG pO2 ABG HCO3 ABG O2 Saturation ABG Base Excess ABG Hemoglobin ABG Oxyhemoglobin ABG Sodium ABG Potassium ABG Chloride ABG Glucose Oxyhemoglobin Carboxyhemoglobin Sodium Potassium Chloride Carbon Dioxide BUN Creatinine Glucose POC Glucose 195 H 177 H 228 H Lactic Acid Calcium Magnesium Ferritin Total Bilirubin Direct Bilirubin AST ALT Alkaline Phosphatase Lactate Dehydrogenase C-Reactive Protein Total Protein Albumin Triglycerides Lipase Arterial Blood Glucose Arterial Blood Ionized Calcium Urine WBC (Auto) Coronavirus (PCR) SARS-CoV-2 IgG Ab Crossmatch 06/03/20 06/03/20 06/03/20 03:58 05:19 12:21 WBC RBC Hgb Hct MCV MCH MCHC RDW Lymph % (Auto) [place] % (Auto) Lymph # (Auto) [place] # (Auto) Baso # (Auto) Seg Neutrophils % Seg Neuts % (Manual) Lymphocytes % (Manual) Nucleated RBC % Seg Neutrophils # Seg Neutrophils # Man Lymphocytes # (Manual) Monocytes # (Manual) Eosinophils # (Manual) PT INR APTT D-Dimer Heparin Anti-Xa Level ABG pH POC ABG pCO2 POC ABG pO2 ABG pO2 171.0 H ABG HCO3 42.8 H ABG O2 Saturation ABG Base Excess 15.6 H ABG Hemoglobin 12.3 L ABG Oxyhemoglobin ABG Sodium ABG Potassium ABG Chloride ABG Glucose Oxyhemoglobin Carboxyhemoglobin Sodium Potassium Chloride Carbon Dioxide BUN Creatinine Glucose POC Glucose 122 H 207 H Lactic Acid Calcium Magnesium Ferritin Total Bilirubin Direct Bilirubin AST ALT Alkaline Phosphatase Lactate Dehydrogenase C-Reactive Protein Total Protein Albumin Triglycerides Lipase Arterial Blood Glucose Arterial Blood Ionized Calcium Urine WBC (Auto) Coronavirus (PCR) SARS-CoV-2 IgG Ab Crossmatch 06/03/20 06/03/20 06/04/20 17:27 23:50 03:55 WBC RBC Hgb Hct MCV MCH MCHC RDW Lymph % (Auto) [place] % (Auto) Lymph # (Auto) [place] # (Auto) Baso # (Auto) Seg Neutrophils % Seg Neuts % (Manual) Lymphocytes % (Manual) Nucleated RBC % Seg Neutrophils # Seg Neutrophils # Man Lymphocytes # (Manual) Monocytes # (Manual) Eosinophils # (Manual) PT INR APTT D-Dimer Heparin Anti-Xa Level ABG pH POC ABG pCO2 POC ABG pO2 ABG pO2 117.2 H ABG HCO3 42.4 H ABG O2 Saturation ABG Base Excess 15.3 H ABG Hemoglobin 10.5 L ABG Oxyhemoglobin ABG Sodium ABG Potassium ABG Chloride ABG Glucose Oxyhemoglobin Carboxyhemoglobin Sodium Potassium Chloride Carbon Dioxide BUN Creatinine Glucose POC Glucose 157 H 214 H Lactic Acid Calcium Magnesium Ferritin Total Bilirubin Direct Bilirubin AST ALT Alkaline Phosphatase Lactate Dehydrogenase C-Reactive Protein Total Protein Albumin Triglycerides Lipase Arterial Blood Glucose Arterial Blood Ionized Calcium Urine WBC (Auto) Coronavirus (PCR) SARS-CoV-2 IgG Ab Crossmatch 06/04/20 06/04/20 06/04/20 05:49 11:41 17:30 WBC RBC Hgb Hct MCV MCH MCHC RDW Lymph % (Auto) [place] % (Auto) Lymph # (Auto) [place] # (Auto) Baso # (Auto) Seg Neutrophils % Seg Neuts % (Manual) Lymphocytes % (Manual) Nucleated RBC % Seg Neutrophils # Seg Neutrophils # Man Lymphocytes # (Manual) Monocytes # (Manual) Eosinophils # (Manual) PT INR APTT D-Dimer Heparin Anti-Xa Level ABG pH POC ABG pCO2 POC ABG pO2 ABG pO2 ABG HCO3 ABG O2 Saturation ABG Base Excess ABG Hemoglobin ABG Oxyhemoglobin ABG Sodium ABG Potassium ABG Chloride ABG Glucose Oxyhemoglobin Carboxyhemoglobin Sodium Potassium Chloride Carbon Dioxide BUN Creatinine Glucose POC Glucose 149 H 233 H 156 H Lactic Acid Calcium Magnesium Ferritin Total Bilirubin Direct Bilirubin AST ALT Alkaline Phosphatase Lactate Dehydrogenase C-Reactive Protein Total Protein Albumin Triglycerides Lipase Arterial Blood Glucose Arterial Blood Ionized Calcium Urine WBC (Auto) Coronavirus (PCR) SARS-CoV-2 IgG Ab Crossmatch 06/04/20 06/04/20 06/04/20 19:01 20:53 23:41 WBC RBC 3.18 L Hgb 10.8 L Hct 31.8 L MCV 100 H MCH 34 H MCHC RDW Lymph % (Auto) [place] % (Auto) Lymph # (Auto) [place] # (Auto) Baso # (Auto) Seg Neutrophils % Seg Neuts % (Manual) 86.0 H Lymphocytes % (Manual) 10.0 L Nucleated RBC % 1.0 H Seg Neutrophils # Seg Neutrophils # Man 8.5 H Lymphocytes # (Manual) 1.0 L Monocytes # (Manual) Eosinophils # (Manual) PT INR APTT D-Dimer Heparin Anti-Xa Level ABG pH POC ABG pCO2 POC ABG pO2 ABG pO2 ABG HCO3 ABG O2 Saturation ABG Base Excess ABG Hemoglobin ABG Oxyhemoglobin ABG Sodium ABG Potassium ABG Chloride ABG Glucose Oxyhemoglobin Carboxyhemoglobin Sodium Potassium 3.4 L D Chloride 96.5 L Carbon Dioxide 41 H* BUN 27 H Creatinine 0.5 L Glucose 173 H POC Glucose 217 H Lactic Acid Calcium Magnesium Ferritin Total Bilirubin Direct Bilirubin AST ALT Alkaline Phosphatase Lactate Dehydrogenase C-Reactive Protein Total Protein Albumin Triglycerides Lipase Arterial Blood Glucose Arterial Blood Ionized Calcium Urine WBC (Auto) Coronavirus (PCR) SARS-CoV-2 IgG Ab Crossmatch 06/05/20 06/05/20 06/05/20 06:05 11:54 12:35 WBC RBC Hgb Hct MCV MCH MCHC RDW Lymph % (Auto) [place] % (Auto) Lymph # (Auto) [place] # (Auto) Baso # (Auto) Seg Neutrophils % Seg Neuts % (Manual) Lymphocytes % (Manual) Nucleated RBC % Seg Neutrophils # Seg Neutrophils # Man Lymphocytes # (Manual) Monocytes # (Manual) Eosinophils # (Manual) PT INR APTT D-Dimer Heparin Anti-Xa Level ABG pH POC ABG pCO2 POC ABG pO2 ABG pO2 127.9 H ABG HCO3 41.1 H ABG O2 Saturation ABG Base Excess 13.0 H ABG Hemoglobin 13.4 L ABG Oxyhemoglobin ABG Sodium ABG Potassium ABG Chloride ABG Glucose Oxyhemoglobin Carboxyhemoglobin Sodium Potassium Chloride Carbon Dioxide BUN Creatinine Glucose POC Glucose 137 H 211 H Lactic Acid Calcium Magnesium Ferritin Total Bilirubin Direct Bilirubin AST ALT Alkaline Phosphatase Lactate Dehydrogenase C-Reactive Protein Total Protein Albumin Triglycerides Lipase Arterial Blood Glucose Arterial Blood Ionized Calcium Urine WBC (Auto) Coronavirus (PCR) SARS-CoV-2 IgG Ab Crossmatch 06/05/20 06/05/20 06/06/20 17:03 23:49 04:42 WBC RBC Hgb Hct MCV MCH MCHC RDW Lymph % (Auto) [place] % (Auto) Lymph # (Auto) [place] # (Auto) Baso # (Auto) Seg Neutrophils % Seg Neuts % (Manual) Lymphocytes % (Manual) Nucleated RBC % Seg Neutrophils # Seg Neutrophils # Man Lymphocytes # (Manual) Monocytes # (Manual) Eosinophils # (Manual) PT INR APTT D-Dimer Heparin Anti-Xa Level ABG pH POC ABG pCO2 56.1 H POC ABG pO2 52.5 L ABG pO2 ABG HCO3 ABG O2 Saturation ABG Base Excess ABG Hemoglobin 11.7 L ABG Oxyhemoglobin ABG Sodium ABG Potassium 3.3 L ABG Chloride 95.0 L ABG Glucose 156 H Oxyhemoglobin Carboxyhemoglobin Sodium Potassium Chloride Carbon Dioxide BUN Creatinine Glucose POC Glucose 159 H 194 H Lactic Acid Calcium Magnesium Ferritin Total Bilirubin Direct Bilirubin AST ALT Alkaline Phosphatase Lactate Dehydrogenase C-Reactive Protein Total Protein Albumin Triglycerides Lipase Arterial Blood Glucose 156 H Arterial Blood Ionized Calcium Urine WBC (Auto) Coronavirus (PCR) SARS-CoV-2 IgG Ab Crossmatch 06/06/20 06/06/20 06/06/20 05:57 12:06 17:38 WBC RBC Hgb Hct MCV MCH MCHC RDW Lymph % (Auto) [place] % (Auto) Lymph # (Auto) [place] # (Auto) Baso # (Auto) Seg Neutrophils % Seg Neuts % (Manual) Lymphocytes % (Manual) Nucleated RBC % Seg Neutrophils # Seg Neutrophils # Man Lymphocytes # (Manual) Monocytes # (Manual) Eosinophils # (Manual) PT INR APTT D-Dimer Heparin Anti-Xa Level ABG pH POC ABG pCO2 POC ABG pO2 ABG pO2 ABG HCO3 ABG O2 Saturation ABG Base Excess ABG Hemoglobin ABG Oxyhemoglobin ABG Sodium ABG Potassium ABG Chloride ABG Glucose Oxyhemoglobin Carboxyhemoglobin Sodium Potassium Chloride Carbon Dioxide BUN Creatinine Glucose POC Glucose 144 H 230 H 162 H Lactic Acid Calcium Magnesium Ferritin Total Bilirubin Direct Bilirubin AST ALT Alkaline Phosphatase Lactate Dehydrogenase C-Reactive Protein Total Protein Albumin Triglycerides Lipase Arterial Blood Glucose Arterial Blood Ionized Calcium Urine WBC (Auto) Coronavirus (PCR) SARS-CoV-2 IgG Ab Crossmatch 06/06/20 06/07/20 06/07/20 23:50 04:34 06:03 WBC RBC Hgb Hct MCV MCH MCHC RDW Lymph % (Auto) [place] % (Auto) Lymph # (Auto) [place] # (Auto) Baso # (Auto) Seg Neutrophils % Seg Neuts % (Manual) Lymphocytes % (Manual) Nucleated RBC % Seg Neutrophils # Seg Neutrophils # Man Lymphocytes # (Manual) Monocytes # (Manual) Eosinophils # (Manual) PT INR APTT D-Dimer Heparin Anti-Xa Level ABG pH 7.511 H POC ABG pCO2 53.5 H POC ABG pO2 114.5 H ABG pO2 ABG HCO3 ABG O2 Saturation ABG Base Excess ABG Hemoglobin 9.4 L ABG Oxyhemoglobin ABG Sodium 134.5 L ABG Potassium ABG Chloride 94.0 L ABG Glucose 186 H Oxyhemoglobin Carboxyhemoglobin Sodium Potassium Chloride Carbon Dioxide BUN Creatinine Glucose POC Glucose 181 H 155 H Lactic Acid Calcium Magnesium Ferritin Total Bilirubin Direct Bilirubin AST ALT Alkaline Phosphatase Lactate Dehydrogenase C-Reactive Protein Total Protein Albumin Triglycerides Lipase Arterial Blood Glucose 186 H Arterial Blood Ionized Calcium 4.5 L Urine WBC (Auto) Coronavirus (PCR) SARS-CoV-2 IgG Ab Crossmatch 06/07/20 06/07/20 06/07/20 13:41 14:58 14:58 WBC RBC 2.72 L Hgb 9.3 L Hct 27.2 L MCV 100 H MCH 34 H MCHC RDW Lymph % (Auto) [place] % (Auto) Lymph # (Auto) [place] # (Auto) Baso # (Auto) Seg Neutrophils % Seg Neuts % (Manual) Lymphocytes % (Manual) Nucleated RBC % Seg Neutrophils # Seg Neutrophils # Man Lymphocytes # (Manual) Monocytes # (Manual) Eosinophils # (Manual) PT INR APTT D-Dimer Heparin Anti-Xa Level ABG pH POC ABG pCO2 POC ABG pO2 ABG pO2 ABG HCO3 ABG O2 Saturation ABG Base Excess ABG Hemoglobin ABG Oxyhemoglobin ABG Sodium ABG Potassium ABG Chloride ABG Glucose Oxyhemoglobin Carboxyhemoglobin Sodium Potassium Chloride 93.5 L Carbon Dioxide 39 H BUN 22 H Creatinine 0.4 L Glucose 188 H POC Glucose 201 H Lactic Acid Calcium Magnesium Ferritin Total Bilirubin Direct Bilirubin AST 61 H ALT 273 H Alkaline Phosphatase Lactate Dehydrogenase C-Reactive Protein Total Protein 5.9 L Albumin 2.7 L Triglycerides Lipase Arterial Blood Glucose Arterial Blood Ionized Calcium Urine WBC (Auto) Coronavirus (PCR) SARS-CoV-2 IgG Ab Crossmatch 06/07/20 06/08/20 06/08/20 23:18 05:31 12:07 WBC RBC Hgb Hct MCV MCH MCHC RDW Lymph % (Auto) [place] % (Auto) Lymph # (Auto) [place] # (Auto) Baso # (Auto) Seg Neutrophils % Seg Neuts % (Manual) Lymphocytes % (Manual) Nucleated RBC % Seg Neutrophils # Seg Neutrophils # Man Lymphocytes # (Manual) Monocytes # (Manual) Eosinophils # (Manual) PT INR APTT D-Dimer Heparin Anti-Xa Level ABG pH POC ABG pCO2 POC ABG pO2 ABG pO2 ABG HCO3 ABG O2 Saturation ABG Base Excess ABG Hemoglobin ABG Oxyhemoglobin ABG Sodium ABG Potassium ABG Chloride ABG Glucose Oxyhemoglobin Carboxyhemoglobin Sodium Potassium Chloride Carbon Dioxide BUN Creatinine Glucose POC Glucose 214 H 129 H 179 H Lactic Acid Calcium Magnesium Ferritin Total Bilirubin Direct Bilirubin AST ALT Alkaline Phosphatase Lactate Dehydrogenase C-Reactive Protein Total Protein Albumin Triglycerides Lipase Arterial Blood Glucose Arterial Blood Ionized Calcium Urine WBC (Auto) Coronavirus (PCR) SARS-CoV-2 IgG Ab Crossmatch 06/08/20 06/08/20 06/09/20 18:18 23:35 05:42 WBC RBC Hgb Hct MCV MCH MCHC RDW Lymph % (Auto) [place] % (Auto) Lymph # (Auto) [place] # (Auto) Baso # (Auto) Seg Neutrophils % Seg Neuts % (Manual) Lymphocytes % (Manual) Nucleated RBC % Seg Neutrophils # Seg Neutrophils # Man Lymphocytes # (Manual) Monocytes # (Manual) Eosinophils # (Manual) PT INR APTT D-Dimer Heparin Anti-Xa Level ABG pH POC ABG pCO2 POC ABG pO2 ABG pO2 ABG HCO3 ABG O2 Saturation ABG Base Excess ABG Hemoglobin ABG Oxyhemoglobin ABG Sodium ABG Potassium ABG Chloride ABG Glucose Oxyhemoglobin Carboxyhemoglobin Sodium Potassium Chloride Carbon Dioxide BUN Creatinine Glucose POC Glucose 172 H 177 H 137 H Lactic Acid Calcium Magnesium Ferritin Total Bilirubin Direct Bilirubin AST ALT Alkaline Phosphatase Lactate Dehydrogenase C-Reactive Protein Total Protein Albumin Triglycerides Lipase Arterial Blood Glucose Arterial Blood Ionized Calcium Urine WBC (Auto) Coronavirus (PCR) SARS-CoV-2 IgG Ab Crossmatch 06/09/20 06/09/20 06/09/20 06:20 07:55 07:55 WBC 12.4 H RBC 3.26 L Hgb 11.1 L Hct 33.4 L D MCV 102 H MCH 34 H MCHC RDW Lymph % (Auto) [place] % (Auto) Lymph # (Auto) [place] # (Auto) Baso # (Auto) Seg Neutrophils % Seg Neuts % (Manual) Lymphocytes % (Manual) Nucleated RBC % Seg Neutrophils # Seg Neutrophils # Man Lymphocytes # (Manual) Monocytes # (Manual) Eosinophils # (Manual) PT INR APTT D-Dimer Heparin Anti-Xa Level ABG pH 7.466 H POC ABG pCO2 50.7 H POC ABG pO2 53.0 L ABG pO2 ABG HCO3 ABG O2 Saturation ABG Base Excess ABG Hemoglobin ABG Oxyhemoglobin ABG Sodium ABG Potassium 2.9 L ABG Chloride 93.0 L ABG Glucose 138 H Oxyhemoglobin Carboxyhemoglobin Sodium Potassium 3.0 L Chloride 92.3 L Carbon Dioxide 37 H BUN 21 H Creatinine 0.6 L Glucose 120 H POC Glucose Lactic Acid Calcium Magnesium Ferritin Total Bilirubin Direct Bilirubin AST ALT Alkaline Phosphatase Lactate Dehydrogenase C-Reactive Protein Total Protein Albumin Triglycerides Lipase Arterial Blood Glucose 138 H Arterial Blood Ionized Calcium 4.5 L Urine WBC (Auto) Coronavirus (PCR) SARS-CoV-2 IgG Ab Crossmatch 06/09/20 06/09/20 06/10/20 11:22 18:32 04:46 WBC RBC Hgb Hct MCV MCH MCHC RDW Lymph % (Auto) [place] % (Auto) Lymph # (Auto) [place] # (Auto) Baso # (Auto) Seg Neutrophils % Seg Neuts % (Manual) Lymphocytes % (Manual) Nucleated RBC % Seg Neutrophils # Seg Neutrophils # Man Lymphocytes # (Manual) Monocytes # (Manual) Eosinophils # (Manual) PT INR APTT D-Dimer Heparin Anti-Xa Level ABG pH 7.501 H POC ABG pCO2 POC ABG pO2 126.5 H ABG pO2 ABG HCO3 ABG O2 Saturation ABG Base Excess ABG Hemoglobin 10.3 L ABG Oxyhemoglobin ABG Sodium ABG Potassium ABG Chloride ABG Glucose 220 H Oxyhemoglobin Carboxyhemoglobin Sodium Potassium Chloride Carbon Dioxide BUN Creatinine Glucose POC Glucose 117 H 121 H Lactic Acid Calcium Magnesium Ferritin Total Bilirubin Direct Bilirubin AST ALT Alkaline Phosphatase Lactate Dehydrogenase C-Reactive Protein Total Protein Albumin Triglycerides Lipase Arterial Blood Glucose 220 H Arterial Blood Ionized Calcium Urine WBC (Auto) Coronavirus (PCR) SARS-CoV-2 IgG Ab Crossmatch 06/10/20 06/10/20 06/10/20 05:30 09:38 12:03 WBC RBC Hgb Hct MCV MCH MCHC RDW Lymph % (Auto) [place] % (Auto) Lymph # (Auto) [place] # (Auto) Baso # (Auto) Seg Neutrophils % Seg Neuts % (Manual) Lymphocytes % (Manual) Nucleated RBC % Seg Neutrophils # Seg Neutrophils # Man Lymphocytes # (Manual) Monocytes # (Manual) Eosinophils # (Manual) PT INR APTT D-Dimer Heparin Anti-Xa Level ABG pH POC ABG pCO2 POC ABG pO2 ABG pO2 ABG HCO3 ABG O2 Saturation ABG Base Excess ABG Hemoglobin ABG Oxyhemoglobin ABG Sodium ABG Potassium ABG Chloride ABG Glucose Oxyhemoglobin Carboxyhemoglobin Sodium Potassium Chloride Carbon Dioxide BUN Creatinine Glucose POC Glucose 181 H 204 H Lactic Acid Calcium Magnesium Ferritin Total Bilirubin Direct Bilirubin AST ALT Alkaline Phosphatase Lactate Dehydrogenase C-Reactive Protein Total Protein Albumin Triglycerides 738 H Lipase Arterial Blood Glucose Arterial Blood Ionized Calcium Urine WBC (Auto) Coronavirus (PCR) SARS-CoV-2 IgG Ab Crossmatch 06/10/20 06/11/20 06/11/20 17:17 00:04 04:38 WBC RBC Hgb Hct MCV MCH MCHC RDW Lymph % (Auto) [place] % (Auto) Lymph # (Auto) [place] # (Auto) Baso # (Auto) Seg Neutrophils % Seg Neuts % (Manual) Lymphocytes % (Manual) Nucleated RBC % Seg Neutrophils # Seg Neutrophils # Man Lymphocytes # (Manual) Monocytes # (Manual) Eosinophils # (Manual) PT INR APTT D-Dimer Heparin Anti-Xa Level ABG pH 7.479 H POC ABG pCO2 POC ABG pO2 76.7 L ABG pO2 ABG HCO3 ABG O2 Saturation ABG Base Excess ABG Hemoglobin 9.8 L ABG Oxyhemoglobin ABG Sodium 135.8 L ABG Potassium ABG Chloride ABG Glucose 238 H Oxyhemoglobin Carboxyhemoglobin Sodium Potassium Chloride Carbon Dioxide BUN Creatinine Glucose POC Glucose 156 H 178 H Lactic Acid Calcium Magnesium Ferritin Total Bilirubin Direct Bilirubin AST ALT Alkaline Phosphatase Lactate Dehydrogenase C-Reactive Protein Total Protein Albumin Triglycerides Lipase Arterial Blood Glucose 238 H Arterial Blood Ionized Calcium Urine WBC (Auto) Coronavirus (PCR) SARS-CoV-2 IgG Ab Crossmatch 06/11/20 06/11/20 06/11/20 05:21 06:52 11:50 WBC RBC Hgb Hct MCV MCH MCHC RDW Lymph % (Auto) [place] % (Auto) Lymph # (Auto) [place] # (Auto) Baso # (Auto) Seg Neutrophils % Seg Neuts % (Manual) Lymphocytes % (Manual) Nucleated RBC % Seg Neutrophils # Seg Neutrophils # Man Lymphocytes # (Manual) Monocytes # (Manual) Eosinophils # (Manual) PT INR APTT D-Dimer Heparin Anti-Xa Level ABG pH POC ABG pCO2 POC ABG pO2 ABG pO2 ABG HCO3 ABG O2 Saturation ABG Base Excess ABG Hemoglobin ABG Oxyhemoglobin ABG Sodium ABG Potassium ABG Chloride ABG Glucose Oxyhemoglobin Carboxyhemoglobin Sodium Potassium Chloride Carbon Dioxide BUN Creatinine Glucose POC Glucose 215 H 187 H Lactic Acid Calcium Magnesium Ferritin Total Bilirubin Direct Bilirubin AST ALT Alkaline Phosphatase Lactate Dehydrogenase C-Reactive Protein Total Protein Albumin Triglycerides 331 H Lipase Arterial Blood Glucose Arterial Blood Ionized Calcium Urine WBC (Auto) Coronavirus (PCR) SARS-CoV-2 IgG Ab Crossmatch 06/11/20 06/11/20 06/12/20 17:49 23:35 04:52 WBC RBC Hgb Hct MCV MCH MCHC RDW Lymph % (Auto) [place] % (Auto) Lymph # (Auto) [place] # (Auto) Baso # (Auto) Seg Neutrophils % Seg Neuts % (Manual) Lymphocytes % (Manual) Nucleated RBC % Seg Neutrophils # Seg Neutrophils # Man Lymphocytes # (Manual) Monocytes # (Manual) Eosinophils # (Manual) PT INR APTT D-Dimer Heparin Anti-Xa Level ABG pH 7.486 H POC ABG pCO2 POC ABG pO2 ABG pO2 ABG HCO3 ABG O2 Saturation ABG Base Excess ABG Hemoglobin 9.4 L ABG Oxyhemoglobin ABG Sodium ABG Potassium 3.2 L ABG Chloride ABG Glucose 209 H Oxyhemoglobin Carboxyhemoglobin Sodium Potassium Chloride Carbon Dioxide BUN Creatinine Glucose POC Glucose 211 H 200 H Lactic Acid Calcium Magnesium Ferritin Total Bilirubin Direct Bilirubin AST ALT Alkaline Phosphatase Lactate Dehydrogenase C-Reactive Protein Total Protein Albumin Triglycerides Lipase Arterial Blood Glucose 209 H Arterial Blood Ionized Calcium Urine WBC (Auto) Coronavirus (PCR) SARS-CoV-2 IgG Ab Crossmatch 06/12/20 06/12/20 06/12/20 05:13 11:47 18:33 WBC RBC Hgb Hct MCV MCH MCHC RDW Lymph % (Auto) [place] % (Auto) Lymph # (Auto) [place] # (Auto) Baso # (Auto) Seg Neutrophils % Seg Neuts % (Manual) Lymphocytes % (Manual) Nucleated RBC % Seg Neutrophils # Seg Neutrophils # Man Lymphocytes # (Manual) Monocytes # (Manual) Eosinophils # (Manual) PT INR APTT D-Dimer Heparin Anti-Xa Level ABG pH POC ABG pCO2 POC ABG pO2 ABG pO2 ABG HCO3 ABG O2 Saturation ABG Base Excess ABG Hemoglobin ABG Oxyhemoglobin ABG Sodium ABG Potassium ABG Chloride ABG Glucose Oxyhemoglobin Carboxyhemoglobin Sodium Potassium Chloride Carbon Dioxide BUN Creatinine Glucose POC Glucose 174 H 214 H 194 H Lactic Acid Calcium Magnesium Ferritin Total Bilirubin Direct Bilirubin AST ALT Alkaline Phosphatase Lactate Dehydrogenase C-Reactive Protein Total Protein Albumin Triglycerides Lipase Arterial Blood Glucose Arterial Blood Ionized Calcium Urine WBC (Auto) Coronavirus (PCR) SARS-CoV-2 IgG Ab Crossmatch 1206/13/20 06/13/20 23:49 05:41 12:30 WBC RBC Hgb Hct MCV MCH MCHC RDW Lymph % (Auto) [place] % (Auto) Lymph # (Auto) [place] # (Auto) Baso # (Auto) Seg Neutrophils % Seg Neuts % (Manual) Lymphocytes % (Manual) Nucleated RBC % Seg Neutrophils # Seg Neutrophils # Man Lymphocytes # (Manual) Monocytes # (Manual) Eosinophils # (Manual) PT INR APTT D-Dimer Heparin Anti-Xa Level ABG pH POC ABG pCO2 POC ABG pO2 ABG pO2 ABG HCO3 ABG O2 Saturation ABG Base Excess ABG Hemoglobin ABG Oxyhemoglobin ABG Sodium ABG Potassium ABG Chloride ABG Glucose Oxyhemoglobin Carboxyhemoglobin Sodium Potassium Chloride Carbon Dioxide BUN Creatinine Glucose POC Glucose 160 H 150 H 181 H Lactic Acid Calcium Magnesium Ferritin Total Bilirubin Direct Bilirubin AST ALT Alkaline Phosphatase Lactate Dehydrogenase C-Reactive Protein Total Protein Albumin Triglycerides Lipase Arterial Blood Glucose Arterial Blood Ionized Calcium Urine WBC (Auto) Coronavirus (PCR) SARS-CoV-2 IgG Ab Crossmatch 06/13/20 06/13/20 06/13/20 14:14 17:48 23:27 WBC 12.8 H RBC 2.33 L Hgb 8.0 L Hct 23.3 L MCV 100 H MCH 34 H MCHC RDW 15.7 H Lymph % (Auto) [place] % (Auto) Lymph # (Auto) [place] # (Auto) Baso # (Auto) Seg Neutrophils % Seg Neuts % (Manual) 85.0 H Lymphocytes % (Manual) 10.0 L Nucleated RBC % Seg Neutrophils # Seg Neutrophils # Man 10.9 H Lymphocytes # (Manual) Monocytes # (Manual) Eosinophils # (Manual) PT INR APTT D-Dimer Heparin Anti-Xa Level ABG pH POC ABG pCO2 POC ABG pO2 ABG pO2 ABG HCO3 ABG O2 Saturation ABG Base Excess ABG Hemoglobin ABG Oxyhemoglobin ABG Sodium ABG Potassium ABG Chloride ABG Glucose Oxyhemoglobin Carboxyhemoglobin Sodium Potassium Chloride Carbon Dioxide BUN Creatinine Glucose POC Glucose 173 H 154 H Lactic Acid Calcium Magnesium Ferritin Total Bilirubin Direct Bilirubin AST ALT Alkaline Phosphatase Lactate Dehydrogenase C-Reactive Protein Total Protein Albumin Triglycerides Lipase Arterial Blood Glucose Arterial Blood Ionized Calcium Urine WBC (Auto) Coronavirus (PCR) SARS-CoV-2 IgG Ab Crossmatch 06/14/20 06/14/20 06/14/20 03:58 05:21 07:15 WBC 26.2 H RBC 2.97 L Hgb 9.7 L Hct 29.9 L D MCV 101 H MCH 33 H MCHC RDW 15.3 H Lymph % (Auto) [place] % (Auto) Lymph # (Auto) [place] # (Auto) Baso # (Auto) Seg Neutrophils % Seg Neuts % (Manual) 79.0 H Lymphocytes % (Manual) 5.0 L Nucleated RBC % 3.0 H Seg Neutrophils # Seg Neutrophils # Man 20.7 H Lymphocytes # (Manual) Monocytes # (Manual) 1.3 H Eosinophils # (Manual) PT INR APTT D-Dimer Heparin Anti-Xa Level ABG pH POC ABG pCO2 51.5 H POC ABG pO2 70.0 L ABG pO2 ABG HCO3 ABG O2 Saturation ABG Base Excess ABG Hemoglobin 10.1 L ABG Oxyhemoglobin ABG Sodium 131.5 L ABG Potassium 3.1 L ABG Chloride 93.0 L ABG Glucose 188 H Oxyhemoglobin Carboxyhemoglobin Sodium Potassium Chloride Carbon Dioxide BUN Creatinine Glucose POC Glucose 147 H Lactic Acid Calcium Magnesium Ferritin Total Bilirubin Direct Bilirubin AST ALT Alkaline Phosphatase Lactate Dehydrogenase C-Reactive Protein Total Protein Albumin Triglycerides Lipase Arterial Blood Glucose 188 H Arterial Blood Ionized Calcium Urine WBC (Auto) Coronavirus (PCR) SARS-CoV-2 IgG Ab Crossmatch 06/14/20 06/14/20 06/14/20 07:15 11:30 11:50 WBC RBC Hgb Hct MCV MCH MCHC RDW Lymph % (Auto) [place] % (Auto) Lymph # (Auto) [place] # (Auto) Baso # (Auto) Seg Neutrophils % Seg Neuts % (Manual) Lymphocytes % (Manual) Nucleated RBC % Seg Neutrophils # Seg Neutrophils # Man Lymphocytes # (Manual) Monocytes # (Manual) Eosinophils # (Manual) PT INR APTT D-Dimer Heparin Anti-Xa Level ABG pH POC ABG pCO2 POC ABG pO2 ABG pO2 ABG HCO3 ABG O2 Saturation ABG Base Excess ABG Hemoglobin ABG Oxyhemoglobin ABG Sodium ABG Potassium ABG Chloride ABG Glucose Oxyhemoglobin Carboxyhemoglobin Sodium 135 L Potassium 3.5 L Chloride 90.4 L Carbon Dioxide 38 H BUN Creatinine 0.5 L Glucose 190 H POC Glucose 176 H Lactic Acid Calcium Magnesium Ferritin 1496.0 H Total Bilirubin Direct Bilirubin AST ALT 81 H Alkaline Phosphatase Lactate Dehydrogenase C-Reactive Protein Total Protein Albumin 2.9 L Triglycerides Lipase Arterial Blood Glucose Arterial Blood Ionized Calcium Urine WBC (Auto) Coronavirus (PCR) SARS-CoV-2 IgG Ab Crossmatch 06/14/20 06/15/20 06/15/20 23:31 04:00 05:00 WBC RBC Hgb Hct MCV MCH MCHC RDW Lymph % (Auto) [place] % (Auto) Lymph # (Auto) [place] # (Auto) Baso # (Auto) Seg Neutrophils % Seg Neuts % (Manual) Lymphocytes % (Manual) Nucleated RBC % Seg Neutrophils # Seg Neutrophils # Man Lymphocytes # (Manual) Monocytes # (Manual) Eosinophils # (Manual) PT INR APTT D-Dimer Heparin Anti-Xa Level ABG pH POC ABG pCO2 POC ABG pO2 ABG pO2 ABG HCO3 ABG O2 Saturation ABG Base Excess ABG Hemoglobin ABG Oxyhemoglobin ABG Sodium ABG Potassium ABG Chloride ABG Glucose Oxyhemoglobin Carboxyhemoglobin Sodium 133 L Potassium Chloride 91.1 L Carbon Dioxide 34 H BUN Creatinine 0.4 L Glucose 159 H POC Glucose 200 H Lactic Acid Calcium Magnesium Ferritin Total Bilirubin 2.00 H Direct Bilirubin AST 47 H ALT 77 H Alkaline Phosphatase Lactate Dehydrogenase C-Reactive Protein Total Protein Albumin 2.6 L Triglycerides 152 H Lipase Arterial Blood Glucose Arterial Blood Ionized Calcium Urine WBC (Auto) Coronavirus (PCR) SARS-CoV-2 IgG Ab Crossmatch 06/15/20 06/15/20 06/15/20 05:35 06:27 11:38 WBC RBC Hgb Hct MCV MCH MCHC RDW Lymph % (Auto) [place] % (Auto) Lymph # (Auto) [place] # (Auto) Baso # (Auto) Seg Neutrophils % Seg Neuts % (Manual) Lymphocytes % (Manual) Nucleated RBC % Seg Neutrophils # Seg Neutrophils # Man Lymphocytes # (Manual) Monocytes # (Manual) Eosinophils # (Manual) PT INR APTT D-Dimer Heparin Anti-Xa Level ABG pH POC ABG pCO2 61.0 H POC ABG pO2 67.9 L ABG pO2 ABG HCO3 ABG O2 Saturation ABG Base Excess ABG Hemoglobin 10.4 L ABG Oxyhemoglobin ABG Sodium 132.7 L ABG Potassium 3.3 L ABG Chloride 92.0 L ABG Glucose 158 H Oxyhemoglobin Carboxyhemoglobin Sodium Potassium Chloride Carbon Dioxide BUN Creatinine Glucose POC Glucose 148 H 197 H Lactic Acid Calcium Magnesium Ferritin Total Bilirubin Direct Bilirubin AST ALT Alkaline Phosphatase Lactate Dehydrogenase C-Reactive Protein Total Protein Albumin Triglycerides Lipase Arterial Blood Glucose 158 H Arterial Blood Ionized Calcium Urine WBC (Auto) Coronavirus (PCR) SARS-CoV-2 IgG Ab Crossmatch 06/15/20 06/15/20 06/16/20 17:29 Unknown 00:01 WBC 20.7 H RBC 2.57 L Hgb 8.9 L Hct 25.8 L MCV 101 H MCH 35 H MCHC 35 H RDW 16.0 H Lymph % (Auto) [place] % (Auto) Lymph # (Auto) [place] # (Auto) Baso # (Auto) Seg Neutrophils % Seg Neuts % (Manual) 83.0 H Lymphocytes % (Manual) 8.0 L Nucleated RBC % Seg Neutrophils # Seg Neutrophils # Man 17.2 H Lymphocytes # (Manual) Monocytes # (Manual) 1.2 H Eosinophils # (Manual) PT INR APTT D-Dimer Heparin Anti-Xa Level ABG pH POC ABG pCO2 POC ABG pO2 ABG pO2 ABG HCO3 ABG O2 Saturation ABG Base Excess ABG Hemoglobin ABG Oxyhemoglobin ABG Sodium ABG Potassium ABG Chloride ABG Glucose Oxyhemoglobin Carboxyhemoglobin Sodium Potassium Chloride Carbon Dioxide BUN Creatinine Glucose POC Glucose 231 H 257 H Lactic Acid Calcium Magnesium Ferritin Total Bilirubin Direct Bilirubin AST ALT Alkaline Phosphatase Lactate Dehydrogenase C-Reactive Protein Total Protein Albumin Triglycerides Lipase Arterial Blood Glucose Arterial Blood Ionized Calcium Urine WBC (Auto) Coronavirus (PCR) SARS-CoV-2 IgG Ab Crossmatch 06/16/20 06/16/20 06/16/20 04:00 04:00 05:22 WBC 13.8 H RBC 2.03 L Hgb 7.6 L Hct 20.7 L MCV 102 H MCH 37 H MCHC 37 H RDW 16.2 H Lymph % (Auto) 4.4 L [place] % (Auto) Lymph # (Auto) 0.6 L [place] # (Auto) Baso # (Auto) Seg Neutrophils % Seg Neuts % (Manual) Lymphocytes % (Manual) Nucleated RBC % Seg Neutrophils # 12.7 H Seg Neutrophils # Man Lymphocytes # (Manual) Monocytes # (Manual) Eosinophils # (Manual) PT INR APTT D-Dimer Heparin Anti-Xa Level ABG pH POC ABG pCO2 POC ABG pO2 ABG pO2 ABG HCO3 ABG O2 Saturation ABG Base Excess ABG Hemoglobin ABG Oxyhemoglobin ABG Sodium ABG Potassium ABG Chloride ABG Glucose Oxyhemoglobin Carboxyhemoglobin Sodium 130 L Potassium Chloride 88.9 L Carbon Dioxide 36 H BUN Creatinine 0.3 L Glucose 276 H POC Glucose 250 H Lactic Acid Calcium Magnesium Ferritin Total Bilirubin Direct Bilirubin AST ALT Alkaline Phosphatase Lactate Dehydrogenase C-Reactive Protein Total Protein Albumin Triglycerides Lipase Arterial Blood Glucose Arterial Blood Ionized Calcium Urine WBC (Auto) Coronavirus (PCR) SARS-CoV-2 IgG Ab Crossmatch 06/16/20 06/16/20 06/17/20 12:44 18:18 00:39 WBC RBC Hgb Hct MCV MCH MCHC RDW Lymph % (Auto) [place] % (Auto) Lymph # (Auto) [place] # (Auto) Baso # (Auto) Seg Neutrophils % Seg Neuts % (Manual) Lymphocytes % (Manual) Nucleated RBC % Seg Neutrophils # Seg Neutrophils # Man Lymphocytes # (Manual) Monocytes # (Manual) Eosinophils # (Manual) PT INR APTT D-Dimer Heparin Anti-Xa Level ABG pH POC ABG pCO2 POC ABG pO2 ABG pO2 ABG HCO3 ABG O2 Saturation ABG Base Excess ABG Hemoglobin ABG Oxyhemoglobin ABG Sodium ABG Potassium ABG Chloride ABG Glucose Oxyhemoglobin Carboxyhemoglobin Sodium Potassium Chloride Carbon Dioxide BUN Creatinine Glucose POC Glucose 279 H 239 H 247 H Lactic Acid Calcium Magnesium Ferritin Total Bilirubin Direct Bilirubin AST ALT Alkaline Phosphatase Lactate Dehydrogenase C-Reactive Protein Total Protein Albumin Triglycerides Lipase Arterial Blood Glucose Arterial Blood Ionized Calcium Urine WBC (Auto) Coronavirus (PCR) SARS-CoV-2 IgG Ab Crossmatch 06/17/20 06/17/20 06/17/20 03:40 04:08 10:54 WBC RBC Hgb Hct MCV MCH MCHC RDW Lymph % (Auto) [place] % (Auto) Lymph # (Auto) [place] # (Auto) Baso # (Auto) Seg Neutrophils % Seg Neuts % (Manual) Lymphocytes % (Manual) Nucleated RBC % Seg Neutrophils # Seg Neutrophils # Man Lymphocytes # (Manual) Monocytes # (Manual) Eosinophils # (Manual) PT INR APTT D-Dimer Heparin Anti-Xa Level ABG pH POC ABG pCO2 65.7 H POC ABG pO2 ABG pO2 ABG HCO3 ABG O2 Saturation ABG Base Excess ABG Hemoglobin 11.9 L ABG Oxyhemoglobin ABG Sodium ABG Potassium ABG Chloride 93.0 L ABG Glucose 244 H Oxyhemoglobin Carboxyhemoglobin Sodium Potassium Chloride Carbon Dioxide BUN Creatinine Glucose POC Glucose 221 H 248 H Lactic Acid Calcium Magnesium Ferritin Total Bilirubin Direct Bilirubin AST ALT Alkaline Phosphatase Lactate Dehydrogenase C-Reactive Protein Total Protein Albumin Triglycerides Lipase Arterial Blood Glucose 244 H Arterial Blood Ionized Calcium Urine WBC (Auto) Coronavirus (PCR) SARS-CoV-2 IgG Ab Crossmatch 06/17/20 06/17/20 06/17/20 17:47 23:11 23:29 WBC RBC Hgb Hct MCV MCH MCHC RDW Lymph % (Auto) [place] % (Auto) Lymph # (Auto) [place] # (Auto) Baso # (Auto) Seg Neutrophils % Seg Neuts % (Manual) Lymphocytes % (Manual) Nucleated RBC % Seg Neutrophils # Seg Neutrophils # Man Lymphocytes # (Manual) Monocytes # (Manual) Eosinophils # (Manual) PT INR APTT D-Dimer Heparin Anti-Xa Level ABG pH POC ABG pCO2 85.2 H POC ABG pO2 48.4 L ABG pO2 ABG HCO3 ABG O2 Saturation ABG Base Excess ABG Hemoglobin 8.0 L ABG Oxyhemoglobin ABG Sodium ABG Potassium ABG Chloride 95.0 L ABG Glucose 292 H Oxyhemoglobin Carboxyhemoglobin Sodium Potassium Chloride Carbon Dioxide BUN Creatinine Glucose POC Glucose 245 H 252 H Lactic Acid Calcium Magnesium Ferritin Total Bilirubin Direct Bilirubin AST ALT Alkaline Phosphatase Lactate Dehydrogenase C-Reactive Protein Total Protein Albumin Triglycerides Lipase Arterial Blood Glucose 292 H Arterial Blood Ionized Calcium Urine WBC (Auto) Coronavirus (PCR) SARS-CoV-2 IgG Ab Crossmatch 06/18/20 06/18/20 06/18/20 03:14 05:34 11:47 WBC RBC Hgb Hct MCV MCH MCHC RDW Lymph % (Auto) [place] % (Auto) Lymph # (Auto) [place] # (Auto) Baso # (Auto) Seg Neutrophils % Seg Neuts % (Manual) Lymphocytes % (Manual) Nucleated RBC % Seg Neutrophils # Seg Neutrophils # Man Lymphocytes # (Manual) Monocytes # (Manual) Eosinophils # (Manual) PT INR APTT D-Dimer Heparin Anti-Xa Level ABG pH POC ABG pCO2 65.4 H POC ABG pO2 160.7 H ABG pO2 ABG HCO3 ABG O2 Saturation ABG Base Excess ABG Hemoglobin 7.8 L ABG Oxyhemoglobin ABG Sodium ABG Potassium ABG Chloride 95.0 L ABG Glucose 251 H Oxyhemoglobin Carboxyhemoglobin Sodium Potassium Chloride Carbon Dioxide BUN Creatinine Glucose POC Glucose 243 H 263 H Lactic Acid Calcium Magnesium Ferritin Total Bilirubin Direct Bilirubin AST ALT Alkaline Phosphatase Lactate Dehydrogenase C-Reactive Protein Total Protein Albumin Triglycerides Lipase Arterial Blood Glucose 251 H Arterial Blood Ionized Calcium Urine WBC (Auto) Coronavirus (PCR) SARS-CoV-2 IgG Ab Crossmatch 06/18/20 06/18/20 06/19/20 17:31 23:33 04:32 WBC RBC Hgb Hct MCV MCH MCHC RDW Lymph % (Auto) [place] % (Auto) Lymph # (Auto) [place] # (Auto) Baso # (Auto) Seg Neutrophils % Seg Neuts % (Manual) Lymphocytes % (Manual) Nucleated RBC % Seg Neutrophils # Seg Neutrophils # Man Lymphocytes # (Manual) Monocytes # (Manual) Eosinophils # (Manual) PT INR APTT D-Dimer Heparin Anti-Xa Level ABG pH POC ABG pCO2 83.1 H POC ABG pO2 65.8 L ABG pO2 ABG HCO3 ABG O2 Saturation ABG Base Excess ABG Hemoglobin 8.9 L ABG Oxyhemoglobin ABG Sodium ABG Potassium ABG Chloride 96.0 L ABG Glucose 297 H Oxyhemoglobin Carboxyhemoglobin Sodium Potassium Chloride Carbon Dioxide BUN Creatinine Glucose POC Glucose 286 H 238 H Lactic Acid Calcium Magnesium Ferritin Total Bilirubin Direct Bilirubin AST ALT Alkaline Phosphatase Lactate Dehydrogenase C-Reactive Protein Total Protein Albumin Triglycerides Lipase Arterial Blood Glucose 297 H Arterial Blood Ionized Calcium Urine WBC (Auto) Coronavirus (PCR) SARS-CoV-2 IgG Ab Crossmatch 06/19/20 06/19/20 06/19/20 05:55 11:20 17:12 WBC RBC Hgb Hct MCV MCH MCHC RDW Lymph % (Auto) [place] % (Auto) Lymph # (Auto) [place] # (Auto) Baso # (Auto) Seg Neutrophils % Seg Neuts % (Manual) Lymphocytes % (Manual) Nucleated RBC % Seg Neutrophils # Seg Neutrophils # Man Lymphocytes # (Manual) Monocytes # (Manual) Eosinophils # (Manual) PT INR APTT D-Dimer Heparin Anti-Xa Level ABG pH POC ABG pCO2 POC ABG pO2 ABG pO2 ABG HCO3 ABG O2 Saturation ABG Base Excess ABG Hemoglobin ABG Oxyhemoglobin ABG Sodium ABG Potassium ABG Chloride ABG Glucose Oxyhemoglobin Carboxyhemoglobin Sodium Potassium Chloride Carbon Dioxide BUN Creatinine Glucose POC Glucose 274 H 282 H 298 H Lactic Acid Calcium Magnesium Ferritin Total Bilirubin Direct Bilirubin AST ALT Alkaline Phosphatase Lactate Dehydrogenase C-Reactive Protein Total Protein Albumin Triglycerides Lipase Arterial Blood Glucose Arterial Blood Ionized Calcium Urine WBC (Auto) Coronavirus (PCR) SARS-CoV-2 IgG Ab Crossmatch 06/19/20 06/20/20 06/20/20 23:08 03:33 06:01 WBC RBC Hgb Hct MCV MCH MCHC RDW Lymph % (Auto) [place] % (Auto) Lymph # (Auto) [place] # (Auto) Baso # (Auto) Seg Neutrophils % Seg Neuts % (Manual) Lymphocytes % (Manual) Nucleated RBC % Seg Neutrophils # Seg Neutrophils # Man Lymphocytes # (Manual) Monocytes # (Manual) Eosinophils # (Manual) PT INR APTT D-Dimer Heparin Anti-Xa Level ABG pH POC ABG pCO2 POC ABG pO2 ABG pO2 69.9 L ABG HCO3 50.8 H ABG O2 Saturation ABG Base Excess 24.2 H ABG Hemoglobin 5.8 L ABG Oxyhemoglobin ABG Sodium ABG Potassium ABG Chloride ABG Glucose Oxyhemoglobin Carboxyhemoglobin Sodium Potassium Chloride Carbon Dioxide BUN Creatinine Glucose POC Glucose 293 H 182 H Lactic Acid Calcium Magnesium Ferritin Total Bilirubin Direct Bilirubin AST ALT Alkaline Phosphatase Lactate Dehydrogenase C-Reactive Protein Total Protein Albumin Triglycerides Lipase Arterial Blood Glucose Arterial Blood Ionized Calcium Urine WBC (Auto) Coronavirus (PCR) SARS-CoV-2 IgG Ab Crossmatch 06/20/20 06/20/20 06/20/20 11:47 17:46 23:37 WBC RBC Hgb Hct MCV MCH MCHC RDW Lymph % (Auto) [place] % (Auto) Lymph # (Auto) [place] # (Auto) Baso # (Auto) Seg Neutrophils % Seg Neuts % (Manual) Lymphocytes % (Manual) Nucleated RBC % Seg Neutrophils # Seg Neutrophils # Man Lymphocytes # (Manual) Monocytes # (Manual) Eosinophils # (Manual) PT INR APTT D-Dimer Heparin Anti-Xa Level ABG pH POC ABG pCO2 POC ABG pO2 ABG pO2 ABG HCO3 ABG O2 Saturation ABG Base Excess ABG Hemoglobin ABG Oxyhemoglobin ABG Sodium ABG Potassium ABG Chloride ABG Glucose Oxyhemoglobin Carboxyhemoglobin Sodium Potassium Chloride Carbon Dioxide BUN Creatinine Glucose POC Glucose 170 H 215 H 256 H Lactic Acid Calcium Magnesium Ferritin Total Bilirubin Direct Bilirubin AST ALT Alkaline Phosphatase Lactate Dehydrogenase C-Reactive Protein Total Protein Albumin Triglycerides Lipase Arterial Blood Glucose Arterial Blood Ionized Calcium Urine WBC (Auto) Coronavirus (PCR) SARS-CoV-2 IgG Ab Crossmatch 06/21/20 06/21/20 06/21/20 04:00 05:14 05:51 WBC RBC Hgb Hct MCV MCH MCHC RDW Lymph % (Auto) [place] % (Auto) Lymph # (Auto) [place] # (Auto) Baso # (Auto) Seg Neutrophils % Seg Neuts % (Manual) Lymphocytes % (Manual) Nucleated RBC % Seg Neutrophils # Seg Neutrophils # Man Lymphocytes # (Manual) Monocytes # (Manual) Eosinophils # (Manual) PT INR APTT D-Dimer Heparin Anti-Xa Level ABG pH 7.474 H POC ABG pCO2 POC ABG pO2 ABG pO2 ABG HCO3 52.1 H ABG O2 Saturation ABG Base Excess 23.3 H ABG Hemoglobin 5.3 L ABG Oxyhemoglobin ABG Sodium ABG Potassium ABG Chloride ABG Glucose Oxyhemoglobin 93.8 L Carboxyhemoglobin Sodium Potassium Chloride Carbon Dioxide BUN Creatinine Glucose POC Glucose 122 H 129 H Lactic Acid Calcium Magnesium Ferritin Total Bilirubin Direct Bilirubin AST ALT Alkaline Phosphatase Lactate Dehydrogenase C-Reactive Protein Total Protein Albumin Triglycerides Lipase Arterial Blood Glucose Arterial Blood Ionized Calcium Urine WBC (Auto) Coronavirus (PCR) SARS-CoV-2 IgG Ab Crossmatch 06/21/20 06/21/20 06/21/20 11:00 11:00 11:42 WBC 14.2 H RBC 1.85 L Hgb 6.2 L Hct 19.5 L* MCV 105 H MCH 34 H MCHC RDW 18.0 H Lymph % (Auto) [place] % (Auto) Lymph # (Auto) [place] # (Auto) Baso # (Auto) Seg Neutrophils % Seg Neuts % (Manual) Lymphocytes % (Manual) Nucleated RBC % Seg Neutrophils # Seg Neutrophils # Man Lymphocytes # (Manual) Monocytes # (Manual) Eosinophils # (Manual) PT INR APTT D-Dimer Heparin Anti-Xa Level ABG pH POC ABG pCO2 POC ABG pO2 ABG pO2 ABG HCO3 ABG O2 Saturation ABG Base Excess ABG Hemoglobin ABG Oxyhemoglobin ABG Sodium ABG Potassium ABG Chloride ABG Glucose Oxyhemoglobin Carboxyhemoglobin Sodium 147 H Potassium Chloride Carbon Dioxide 51 H* BUN 31 H Creatinine 0.5 L Glucose 224 H POC Glucose 217 H Lactic Acid Calcium Magnesium Ferritin Total Bilirubin Direct Bilirubin AST ALT Alkaline Phosphatase Lactate Dehydrogenase C-Reactive Protein Total Protein Albumin Triglycerides Lipase Arterial Blood Glucose Arterial Blood Ionized Calcium Urine WBC (Auto) Coronavirus (PCR) SARS-CoV-2 IgG Ab Crossmatch 06/21/20 06/21/20 06/21/20 14:18 14:30 18:36 WBC RBC Hgb Hct MCV MCH MCHC RDW Lymph % (Auto) [place] % (Auto) Lymph # (Auto) [place] # (Auto) Baso # (Auto) Seg Neutrophils % Seg Neuts % (Manual) Lymphocytes % (Manual) Nucleated RBC % Seg Neutrophils # Seg Neutrophils # Man Lymphocytes # (Manual) Monocytes # (Manual) Eosinophils # (Manual) PT 15.1 H INR 1.19 H APTT D-Dimer Heparin Anti-Xa Level ABG pH POC ABG pCO2 POC ABG pO2 ABG pO2 ABG HCO3 ABG O2 Saturation ABG Base Excess ABG Hemoglobin ABG Oxyhemoglobin ABG Sodium ABG Potassium ABG Chloride ABG Glucose Oxyhemoglobin Carboxyhemoglobin Sodium Potassium Chloride Carbon Dioxide BUN Creatinine Glucose POC Glucose 185 H Lactic Acid Calcium Magnesium Ferritin Total Bilirubin Direct Bilirubin AST ALT Alkaline Phosphatase Lactate Dehydrogenase C-Reactive Protein Total Protein Albumin Triglycerides Lipase Arterial Blood Glucose Arterial Blood Ionized Calcium Urine WBC (Auto) Coronavirus (PCR) SARS-CoV-2 IgG Ab Crossmatch See Detail 06/21/20 06/22/20 06/22/20 21:14 03:50 04:00 WBC RBC Hgb Hct MCV MCH MCHC RDW Lymph % (Auto) [place] % (Auto) Lymph # (Auto) [place] # (Auto) Baso # (Auto) Seg Neutrophils % Seg Neuts % (Manual) Lymphocytes % (Manual) Nucleated RBC % Seg Neutrophils # Seg Neutrophils # Man Lymphocytes # (Manual) Monocytes # (Manual) Eosinophils # (Manual) PT INR APTT D-Dimer Heparin Anti-Xa Level ABG pH 7.451 H POC ABG pCO2 POC ABG pO2 ABG pO2 ABG HCO3 47.5 H ABG O2 Saturation ABG Base Excess 22.0 H ABG Hemoglobin < 5.1 L ABG Oxyhemoglobin ABG Sodium ABG Potassium ABG Chloride ABG Glucose Oxyhemoglobin 94.1 L Carboxyhemoglobin Sodium 149 H Potassium 3.5 L Chloride Carbon Dioxide 42 H* D BUN 34 H Creatinine 0.4 L Glucose 219 H POC Glucose 250 H Lactic Acid Calcium Magnesium Ferritin Total Bilirubin Direct Bilirubin AST ALT Alkaline Phosphatase Lactate Dehydrogenase C-Reactive Protein Total Protein Albumin Triglycerides Lipase Arterial Blood Glucose Arterial Blood Ionized Calcium Urine WBC (Auto) Coronavirus (PCR) SARS-CoV-2 IgG Ab Crossmatch 06/22/20 06/22/20 06/22/20 12:16 14:29 17:56 WBC RBC Hgb Hct MCV MCH MCHC RDW Lymph % (Auto) [place] % (Auto) Lymph # (Auto) [place] # (Auto) Baso # (Auto) Seg Neutrophils % Seg Neuts % (Manual) Lymphocytes % (Manual) Nucleated RBC % Seg Neutrophils # Seg Neutrophils # Man Lymphocytes # (Manual) Monocytes # (Manual) Eosinophils # (Manual) PT 11.8 L INR APTT 23.5 L D-Dimer Heparin Anti-Xa Level ABG pH POC ABG pCO2 POC ABG pO2 ABG pO2 ABG HCO3 ABG O2 Saturation ABG Base Excess ABG Hemoglobin ABG Oxyhemoglobin ABG Sodium ABG Potassium ABG Chloride ABG Glucose Oxyhemoglobin Carboxyhemoglobin Sodium Potassium Chloride Carbon Dioxide BUN Creatinine Glucose POC Glucose 215 H 215 H Lactic Acid Calcium Magnesium Ferritin Total Bilirubin Direct Bilirubin AST ALT Alkaline Phosphatase Lactate Dehydrogenase C-Reactive Protein Total Protein Albumin Triglycerides Lipase Arterial Blood Glucose Arterial Blood Ionized Calcium Urine WBC (Auto) Coronavirus (PCR) SARS-CoV-2 IgG Ab Crossmatch 06/22/20 06/22/20 06/22/20 23:36 23:45 Unknown WBC 14.1 H RBC 2.70 L Hgb 8.9 L 8.9 L Hct 26.9 L 27.2 L D MCV 101 H MCH 33 H MCHC RDW 17.7 H Lymph % (Auto) [place] % (Auto) Lymph # (Auto) [place] # (Auto) Baso # (Auto) Seg Neutrophils % Seg Neuts % (Manual) 92.0 H Lymphocytes % (Manual) 5.0 L Nucleated RBC % Seg Neutrophils # Seg Neutrophils # Man 13.0 H Lymphocytes # (Manual) 0.7 L Monocytes # (Manual) Eosinophils # (Manual) PT INR APTT D-Dimer Heparin Anti-Xa Level ABG pH POC ABG pCO2 POC ABG pO2 ABG pO2 ABG HCO3 ABG O2 Saturation ABG Base Excess ABG Hemoglobin ABG Oxyhemoglobin ABG Sodium ABG Potassium ABG Chloride ABG Glucose Oxyhemoglobin Carboxyhemoglobin Sodium Potassium Chloride Carbon Dioxide BUN Creatinine Glucose POC Glucose 208 H Lactic Acid Calcium Magnesium Ferritin Total Bilirubin Direct Bilirubin AST ALT Alkaline Phosphatase Lactate Dehydrogenase C-Reactive Protein Total Protein Albumin Triglycerides Lipase Arterial Blood Glucose Arterial Blood Ionized Calcium Urine WBC (Auto) Coronavirus (PCR) SARS-CoV-2 IgG Ab Crossmatch 06/23/20 06/23/20 06/23/20 05:17 05:19 06:50 WBC RBC Hgb Hct MCV MCH MCHC RDW Lymph % (Auto) [place] % (Auto) Lymph # (Auto) [place] # (Auto) Baso # (Auto) Seg Neutrophils % Seg Neuts % (Manual) Lymphocytes % (Manual) Nucleated RBC % Seg Neutrophils # Seg Neutrophils # Man Lymphocytes # (Manual) Monocytes # (Manual) Eosinophils # (Manual) PT INR APTT D-Dimer Heparin Anti-Xa Level ABG pH POC ABG pCO2 69.7 H POC ABG pO2 63.3 L ABG pO2 ABG HCO3 ABG O2 Saturation ABG Base Excess ABG Hemoglobin 10.1 L ABG Oxyhemoglobin ABG Sodium ABG Potassium 3.3 L ABG Chloride ABG Glucose 226 H Oxyhemoglobin Carboxyhemoglobin Sodium Potassium 3.0 L Chloride Carbon Dioxide 41 H* BUN 26 H Creatinine 0.4 L Glucose 209 H POC Glucose 200 H Lactic Acid Calcium Magnesium Ferritin Total Bilirubin Direct Bilirubin AST ALT Alkaline Phosphatase Lactate Dehydrogenase C-Reactive Protein Total Protein Albumin 2.9 L Triglycerides Lipase Arterial Blood Glucose 226 H Arterial Blood Ionized Calcium Urine WBC (Auto) Coronavirus (PCR) SARS-CoV-2 IgG Ab Crossmatch 06/23/20 06/23/20 06/23/20 09:41 12:04 18:16 WBC RBC Hgb 9.1 L Hct 28.0 L MCV MCH MCHC RDW Lymph % (Auto) [place] % (Auto) Lymph # (Auto) [place] # (Auto) Baso # (Auto) Seg Neutrophils % Seg Neuts % (Manual) Lymphocytes % (Manual) Nucleated RBC % Seg Neutrophils # Seg Neutrophils # Man Lymphocytes # (Manual) Monocytes # (Manual) Eosinophils # (Manual) PT INR APTT D-Dimer Heparin Anti-Xa Level ABG pH POC ABG pCO2 POC ABG pO2 ABG pO2 ABG HCO3 ABG O2 Saturation ABG Base Excess ABG Hemoglobin ABG Oxyhemoglobin ABG Sodium ABG Potassium ABG Chloride ABG Glucose Oxyhemoglobin Carboxyhemoglobin Sodium Potassium Chloride Carbon Dioxide BUN Creatinine Glucose POC Glucose 146 H 162 H Lactic Acid Calcium Magnesium Ferritin Total Bilirubin Direct Bilirubin AST ALT Alkaline Phosphatase Lactate Dehydrogenase C-Reactive Protein Total Protein Albumin Triglycerides Lipase Arterial Blood Glucose Arterial Blood Ionized Calcium Urine WBC (Auto) Coronavirus (PCR) SARS-CoV-2 IgG Ab Crossmatch 06/23/20 06/23/20 06/24/20 23:24 23:41 02:39 WBC RBC Hgb 8.2 L 8.8 L Hct 24.9 L 26.8 L MCV MCH MCHC RDW Lymph % (Auto) [place] % (Auto) Lymph # (Auto) [place] # (Auto) Baso # (Auto) Seg Neutrophils % Seg Neuts % (Manual) Lymphocytes % (Manual) Nucleated RBC % Seg Neutrophils # Seg Neutrophils # Man Lymphocytes # (Manual) Monocytes # (Manual) Eosinophils # (Manual) PT INR APTT D-Dimer Heparin Anti-Xa Level ABG pH POC ABG pCO2 POC ABG pO2 ABG pO2 ABG HCO3 ABG O2 Saturation ABG Base Excess ABG Hemoglobin ABG Oxyhemoglobin ABG Sodium ABG Potassium ABG Chloride ABG Glucose Oxyhemoglobin Carboxyhemoglobin Sodium Potassium Chloride Carbon Dioxide BUN Creatinine Glucose POC Glucose 248 H Lactic Acid Calcium Magnesium Ferritin Total Bilirubin Direct Bilirubin AST ALT Alkaline Phosphatase Lactate Dehydrogenase C-Reactive Protein Total Protein Albumin Triglycerides Lipase Arterial Blood Glucose Arterial Blood Ionized Calcium Urine WBC (Auto) Coronavirus (PCR) SARS-CoV-2 IgG Ab Crossmatch 06/24/20 06/24/20 06/24/20 02:39 02:45 05:31 WBC RBC Hgb Hct MCV MCH MCHC RDW Lymph % (Auto) [place] % (Auto) Lymph # (Auto) [place] # (Auto) Baso # (Auto) Seg Neutrophils % Seg Neuts % (Manual) Lymphocytes % (Manual) Nucleated RBC % Seg Neutrophils # Seg Neutrophils # Man Lymphocytes # (Manual) Monocytes # (Manual) Eosinophils # (Manual) PT INR APTT D-Dimer Heparin Anti-Xa Level ABG pH POC ABG pCO2 66.9 H POC ABG pO2 109.7 H ABG pO2 ABG HCO3 ABG O2 Saturation ABG Base Excess ABG Hemoglobin 9.7 L ABG Oxyhemoglobin ABG Sodium 135.0 L ABG Potassium ABG Chloride 97.0 L ABG Glucose 277 H Oxyhemoglobin Carboxyhemoglobin Sodium 136 L Potassium Chloride 95.0 L Carbon Dioxide 34 H D BUN 24 H Creatinine 0.3 L Glucose 260 H POC Glucose 164 H Lactic Acid Calcium Magnesium Ferritin Total Bilirubin Direct Bilirubin AST ALT Alkaline Phosphatase Lactate Dehydrogenase C-Reactive Protein Total Protein 5.2 L Albumin 2.6 L Triglycerides Lipase Arterial Blood Glucose 277 H Arterial Blood Ionized Calcium Urine WBC (Auto) Coronavirus (PCR) SARS-CoV-2 IgG Ab Crossmatch 06/24/20 06/24/20 06/24/20 10:00 11:49 17:39 WBC RBC Hgb 8.9 L Hct 26.5 L MCV MCH MCHC RDW Lymph % (Auto) [place] % (Auto) Lymph # (Auto) [place] # (Auto) Baso # (Auto) Seg Neutrophils % Seg Neuts % (Manual) Lymphocytes % (Manual) Nucleated RBC % Seg Neutrophils # Seg Neutrophils # Man Lymphocytes # (Manual) Monocytes # (Manual) Eosinophils # (Manual) PT INR APTT D-Dimer Heparin Anti-Xa Level ABG pH POC ABG pCO2 POC ABG pO2 ABG pO2 ABG HCO3 ABG O2 Saturation ABG Base Excess ABG Hemoglobin ABG Oxyhemoglobin ABG Sodium ABG Potassium ABG Chloride ABG Glucose Oxyhemoglobin Carboxyhemoglobin Sodium Potassium Chloride Carbon Dioxide BUN Creatinine Glucose POC Glucose 198 H 223 H Lactic Acid Calcium Magnesium Ferritin Total Bilirubin Direct Bilirubin AST ALT Alkaline Phosphatase Lactate Dehydrogenase C-Reactive Protein Total Protein Albumin Triglycerides Lipase Arterial Blood Glucose Arterial Blood Ionized Calcium Urine WBC (Auto) Coronavirus (PCR) SARS-CoV-2 IgG Ab Crossmatch 06/24/20 06/25/20 06/25/20 23:56 02:16 04:08 WBC RBC Hgb Hct MCV MCH MCHC RDW Lymph % (Auto) [place] % (Auto) Lymph # (Auto) [place] # (Auto) Baso # (Auto) Seg Neutrophils % Seg Neuts % (Manual) Lymphocytes % (Manual) Nucleated RBC % Seg Neutrophils # Seg Neutrophils # Man Lymphocytes # (Manual) Monocytes # (Manual) Eosinophils # (Manual) PT INR APTT D-Dimer Heparin Anti-Xa Level ABG pH 7.454 H POC ABG pCO2 56.9 H POC ABG pO2 61.0 L ABG pO2 ABG HCO3 ABG O2 Saturation ABG Base Excess ABG Hemoglobin ABG Oxyhemoglobin ABG Sodium 134.3 L ABG Potassium ABG Chloride 92.0 L ABG Glucose 246 H Oxyhemoglobin Carboxyhemoglobin Sodium 134 L Potassium Chloride 89.7 L Carbon Dioxide 36 H BUN Creatinine 0.3 L Glucose 254 H POC Glucose 225 H Lactic Acid Calcium Magnesium Ferritin Total Bilirubin Direct Bilirubin AST ALT Alkaline Phosphatase Lactate Dehydrogenase C-Reactive Protein Total Protein Albumin 2.9 L Triglycerides Lipase Arterial Blood Glucose 246 H Arterial Blood Ionized Calcium Urine WBC (Auto) Coronavirus (PCR) SARS-CoV-2 IgG Ab Crossmatch 06/25/20 06/25/20 06/25/20 05:44 11:35 17:33 WBC RBC Hgb Hct MCV MCH MCHC RDW Lymph % (Auto) [place] % (Auto) Lymph # (Auto) [place] # (Auto) Baso # (Auto) Seg Neutrophils % Seg Neuts % (Manual) Lymphocytes % (Manual) Nucleated RBC % Seg Neutrophils # Seg Neutrophils # Man Lymphocytes # (Manual) Monocytes # (Manual) Eosinophils # (Manual) PT INR APTT D-Dimer Heparin Anti-Xa Level ABG pH POC ABG pCO2 POC ABG pO2 ABG pO2 ABG HCO3 ABG O2 Saturation ABG Base Excess ABG Hemoglobin ABG Oxyhemoglobin ABG Sodium ABG Potassium ABG Chloride ABG Glucose Oxyhemoglobin Carboxyhemoglobin Sodium Potassium Chloride Carbon Dioxide BUN Creatinine Glucose POC Glucose 170 H 175 H 229 H Lactic Acid Calcium Magnesium Ferritin Total Bilirubin Direct Bilirubin AST ALT Alkaline Phosphatase Lactate Dehydrogenase C-Reactive Protein Total Protein Albumin Triglycerides Lipase Arterial Blood Glucose Arterial Blood Ionized Calcium Urine WBC (Auto) Coronavirus (PCR) SARS-CoV-2 IgG Ab Crossmatch 06/25/20 06/26/20 06/26/20 23:55 02:17 02:17 WBC RBC Hgb 10.0 L Hct 30.4 L MCV MCH MCHC RDW Lymph % (Auto) [place] % (Auto) Lymph # (Auto) [place] # (Auto) Baso # (Auto) Seg Neutrophils % Seg Neuts % (Manual) Lymphocytes % (Manual) Nucleated RBC % Seg Neutrophils # Seg Neutrophils # Man Lymphocytes # (Manual) Monocytes # (Manual) Eosinophils # (Manual) PT INR APTT D-Dimer Heparin Anti-Xa Level ABG pH POC ABG pCO2 POC ABG pO2 ABG pO2 ABG HCO3 ABG O2 Saturation ABG Base Excess ABG Hemoglobin ABG Oxyhemoglobin ABG Sodium ABG Potassium ABG Chloride ABG Glucose Oxyhemoglobin Carboxyhemoglobin Sodium 136 L Potassium Chloride 90.1 L Carbon Dioxide 39 H BUN Creatinine 0.2 L Glucose 232 H POC Glucose 192 H Lactic Acid Calcium Magnesium Ferritin Total Bilirubin Direct Bilirubin AST ALT Alkaline Phosphatase Lactate Dehydrogenase C-Reactive Protein Total Protein 6.1 L Albumin 2.9 L Triglycerides Lipase Arterial Blood Glucose Arterial Blood Ionized Calcium Urine WBC (Auto) Coronavirus (PCR) SARS-CoV-2 IgG Ab Crossmatch 06/26/20 06/26/20 06/26/20 04:15 04:49 05:28 WBC RBC Hgb Hct MCV MCH MCHC RDW Lymph % (Auto) [place] % (Auto) Lymph # (Auto) [place] # (Auto) Baso # (Auto) Seg Neutrophils % Seg Neuts % (Manual) Lymphocytes % (Manual) Nucleated RBC % Seg Neutrophils # Seg Neutrophils # Man Lymphocytes # (Manual) Monocytes # (Manual) Eosinophils # (Manual) PT INR APTT D-Dimer Heparin Anti-Xa Level ABG pH 7.453 H POC ABG pCO2 59.6 H POC ABG pO2 ABG pO2 ABG HCO3 ABG O2 Saturation ABG Base Excess ABG Hemoglobin 10.0 L ABG Oxyhemoglobin ABG Sodium 134.2 L ABG Potassium 3.3 L ABG Chloride 92.0 L ABG Glucose 305 H Oxyhemoglobin Carboxyhemoglobin Sodium Potassium Chloride Carbon Dioxide BUN Creatinine Glucose POC Glucose 234 H Lactic Acid Calcium Magnesium Ferritin Total Bilirubin Direct Bilirubin AST ALT Alkaline Phosphatase Lactate Dehydrogenase C-Reactive Protein Total Protein Albumin Triglycerides 203 H Lipase Arterial Blood Glucose 305 H Arterial Blood Ionized Calcium Urine WBC (Auto) Coronavirus (PCR) SARS-CoV-2 IgG Ab Crossmatch 06/26/20 06/26/20 06/26/20 11:58 17:58 21:32 WBC RBC Hgb Hct MCV MCH MCHC RDW Lymph % (Auto) [place] % (Auto) Lymph # (Auto) [place] # (Auto) Baso # (Auto) Seg Neutrophils % Seg Neuts % (Manual) Lymphocytes % (Manual) Nucleated RBC % Seg Neutrophils # Seg Neutrophils # Man Lymphocytes # (Manual) Monocytes # (Manual) Eosinophils # (Manual) PT INR APTT D-Dimer Heparin Anti-Xa Level ABG pH POC ABG pCO2 POC ABG pO2 ABG pO2 ABG HCO3 ABG O2 Saturation ABG Base Excess ABG Hemoglobin ABG Oxyhemoglobin ABG Sodium ABG Potassium ABG Chloride ABG Glucose Oxyhemoglobin Carboxyhemoglobin Sodium Potassium Chloride Carbon Dioxide BUN Creatinine Glucose POC Glucose 198 H 193 H 191 H Lactic Acid Calcium Magnesium Ferritin Total Bilirubin Direct Bilirubin AST ALT Alkaline Phosphatase Lactate Dehydrogenase C-Reactive Protein Total Protein Albumin Triglycerides Lipase Arterial Blood Glucose Arterial Blood Ionized Calcium Urine WBC (Auto) Coronavirus (PCR) SARS-CoV-2 IgG Ab Crossmatch 06/26/20 06/27/20 06/27/20 23:40 04:35 05:32 WBC RBC Hgb Hct MCV MCH MCHC RDW Lymph % (Auto) [place] % (Auto) Lymph # (Auto) [place] # (Auto) Baso # (Auto) Seg Neutrophils % Seg Neuts % (Manual) Lymphocytes % (Manual) Nucleated RBC % Seg Neutrophils # Seg Neutrophils # Man Lymphocytes # (Manual) Monocytes # (Manual) Eosinophils # (Manual) PT INR APTT D-Dimer Heparin Anti-Xa Level ABG pH 7.464 H POC ABG pCO2 60.8 H POC ABG pO2 ABG pO2 ABG HCO3 ABG O2 Saturation ABG Base Excess ABG Hemoglobin 10.1 L ABG Oxyhemoglobin ABG Sodium ABG Potassium 2.9 L ABG Chloride 92.0 L ABG Glucose 298 H Oxyhemoglobin Carboxyhemoglobin Sodium Potassium Chloride Carbon Dioxide BUN Creatinine Glucose POC Glucose 241 H 211 H Lactic Acid Calcium Magnesium Ferritin Total Bilirubin Direct Bilirubin AST ALT Alkaline Phosphatase Lactate Dehydrogenase C-Reactive Protein Total Protein Albumin Triglycerides Lipase Arterial Blood Glucose 298 H Arterial Blood Ionized Calcium Urine WBC (Auto) Coronavirus (PCR) SARS-CoV-2 IgG Ab Crossmatch 06/27/20 06/27/20 06/27/20 12:37 18:08 20:52 WBC RBC Hgb Hct MCV MCH MCHC RDW Lymph % (Auto) [place] % (Auto) Lymph # (Auto) [place] # (Auto) Baso # (Auto) Seg Neutrophils % Seg Neuts % (Manual) Lymphocytes % (Manual) Nucleated RBC % Seg Neutrophils # Seg Neutrophils # Man Lymphocytes # (Manual) Monocytes # (Manual) Eosinophils # (Manual) PT INR APTT D-Dimer Heparin Anti-Xa Level ABG pH POC ABG pCO2 POC ABG pO2 ABG pO2 ABG HCO3 ABG O2 Saturation ABG Base Excess ABG Hemoglobin ABG Oxyhemoglobin ABG Sodium ABG Potassium ABG Chloride ABG Glucose Oxyhemoglobin Carboxyhemoglobin Sodium Potassium Chloride Carbon Dioxide BUN Creatinine Glucose POC Glucose 182 H 197 H 195 H Lactic Acid Calcium Magnesium Ferritin Total Bilirubin Direct Bilirubin AST ALT Alkaline Phosphatase Lactate Dehydrogenase C-Reactive Protein Total Protein Albumin Triglycerides Lipase Arterial Blood Glucose Arterial Blood Ionized Calcium Urine WBC (Auto) Coronavirus (PCR) SARS-CoV-2 IgG Ab Crossmatch 06/27/20 06/28/20 06/28/20 Unknown 04:17 04:50 WBC RBC Hgb Hct MCV MCH MCHC RDW Lymph % (Auto) [place] % (Auto) Lymph # (Auto) [place] # (Auto) Baso # (Auto) Seg Neutrophils % Seg Neuts % (Manual) Lymphocytes % (Manual) Nucleated RBC % Seg Neutrophils # Seg Neutrophils # Man Lymphocytes # (Manual) Monocytes # (Manual) Eosinophils # (Manual) PT INR APTT D-Dimer Heparin Anti-Xa Level ABG pH POC ABG pCO2 58.6 H POC ABG pO2 60.1 L ABG pO2 ABG HCO3 ABG O2 Saturation ABG Base Excess ABG Hemoglobin 10.0 L ABG Oxyhemoglobin ABG Sodium 125.3 L ABG Potassium ABG Chloride 93.0 L ABG Glucose 308 H Oxyhemoglobin Carboxyhemoglobin Sodium Potassium 2.9 L* Chloride 93.4 L Carbon Dioxide 42 H* BUN Creatinine 0.3 L Glucose 211 H POC Glucose 252 H Lactic Acid Calcium 8.1 L Magnesium Ferritin Total Bilirubin Direct Bilirubin AST ALT Alkaline Phosphatase Lactate Dehydrogenase C-Reactive Protein Total Protein 5.1 L Albumin 2.4 L Triglycerides Lipase Arterial Blood Glucose 308 H Arterial Blood Ionized Calcium Urine WBC (Auto) Coronavirus (PCR) SARS-CoV-2 IgG Ab Crossmatch 06/28/20 06/28/20 06/28/20 06:35 06:35 11:36 WBC 18.9 H RBC 2.85 L Hgb 9.5 L Hct 28.4 L MCV 100 H MCH 33 H MCHC RDW 17.3 H Lymph % (Auto) [place] % (Auto) Lymph # (Auto) [place] # (Auto) Baso # (Auto) Seg Neutrophils % 88.6 H Seg Neuts % (Manual) 95.0 H Lymphocytes % (Manual) 1.0 L Nucleated RBC % Seg Neutrophils # 15.9 H Seg Neutrophils # Man 18.0 H Lymphocytes # (Manual) 0.2 L Monocytes # (Manual) Eosinophils # (Manual) PT INR APTT D-Dimer Heparin Anti-Xa Level ABG pH POC ABG pCO2 POC ABG pO2 ABG pO2 ABG HCO3 ABG O2 Saturation ABG Base Excess ABG Hemoglobin ABG Oxyhemoglobin ABG Sodium ABG Potassium ABG Chloride ABG Glucose Oxyhemoglobin Carboxyhemoglobin Sodium Potassium Chloride 94.2 L Carbon Dioxide 38 H BUN Creatinine 0.3 L Glucose 228 H POC Glucose 243 H Lactic Acid Calcium Magnesium Ferritin Total Bilirubin Direct Bilirubin AST ALT Alkaline Phosphatase Lactate Dehydrogenase C-Reactive Protein Total Protein 6.1 L Albumin 2.7 L Triglycerides Lipase Arterial Blood Glucose Arterial Blood Ionized Calcium Urine WBC (Auto) Coronavirus (PCR) SARS-CoV-2 IgG Ab Crossmatch 06/28/20 06/28/20 06/29/20 16:53 21:10 00:06 WBC RBC Hgb Hct MCV MCH MCHC RDW Lymph % (Auto) [place] % (Auto) Lymph # (Auto) [place] # (Auto) Baso # (Auto) Seg Neutrophils % Seg Neuts % (Manual) Lymphocytes % (Manual) Nucleated RBC % Seg Neutrophils # Seg Neutrophils # Man Lymphocytes # (Manual) Monocytes # (Manual) Eosinophils # (Manual) PT INR APTT D-Dimer Heparin Anti-Xa Level ABG pH POC ABG pCO2 POC ABG pO2 ABG pO2 ABG HCO3 ABG O2 Saturation ABG Base Excess ABG Hemoglobin ABG Oxyhemoglobin ABG Sodium ABG Potassium ABG Chloride ABG Glucose Oxyhemoglobin Carboxyhemoglobin Sodium Potassium Chloride Carbon Dioxide BUN Creatinine Glucose POC Glucose 211 H 195 H 200 H Lactic Acid Calcium Magnesium Ferritin Total Bilirubin Direct Bilirubin AST ALT Alkaline Phosphatase Lactate Dehydrogenase C-Reactive Protein Total Protein Albumin Triglycerides Lipase Arterial Blood Glucose Arterial Blood Ionized Calcium Urine WBC (Auto) Coronavirus (PCR) SARS-CoV-2 IgG Ab Crossmatch 06/29/20 06/29/20 06/29/20 03:11 04:00 04:00 WBC 18.8 H RBC 2.82 L Hgb 10.1 L Hct 28.5 L MCV 101 H MCH 36 H MCHC 36 H RDW 17.5 H Lymph % (Auto) 10.7 L [place] % (Auto) Lymph # (Auto) [place] # (Auto) 1.0 H Baso # (Auto) 0.3 H Seg Neutrophils % 82.2 H Seg Neuts % (Manual) Lymphocytes % (Manual) Nucleated RBC % Seg Neutrophils # 15.5 H Seg Neutrophils # Man Lymphocytes # (Manual) Monocytes # (Manual) Eosinophils # (Manual) PT INR APTT D-Dimer Heparin Anti-Xa Level ABG pH POC ABG pCO2 57.5 H POC ABG pO2 69.1 L ABG pO2 ABG HCO3 ABG O2 Saturation ABG Base Excess ABG Hemoglobin 10.2 L ABG Oxyhemoglobin 92.3 L ABG Sodium 130.7 L ABG Potassium 3.2 L ABG Chloride 93.0 L ABG Glucose 228 H Oxyhemoglobin Carboxyhemoglobin Sodium 134 L Potassium 3.3 L Chloride 89.5 L Carbon Dioxide 40 H BUN Creatinine 0.2 L Glucose 190 H POC Glucose Lactic Acid Calcium Magnesium Ferritin Total Bilirubin Direct Bilirubin AST < 5 L ALT < 5 L Alkaline Phosphatase Lactate Dehydrogenase C-Reactive Protein Total Protein 5.9 L Albumin 2.2 L Triglycerides Lipase Arterial Blood Glucose 228 H Arterial Blood Ionized Calcium Urine WBC (Auto) Coronavirus (PCR) SARS-CoV-2 IgG Ab Crossmatch 06/29/20 06/29/20 06/29/20 05:00 05:23 09:36 WBC RBC Hgb Hct MCV MCH MCHC RDW Lymph % (Auto) [place] % (Auto) Lymph # (Auto) [place] # (Auto) Baso # (Auto) Seg Neutrophils % Seg Neuts % (Manual) Lymphocytes % (Manual) Nucleated RBC % Seg Neutrophils # Seg Neutrophils # Man Lymphocytes # (Manual) Monocytes # (Manual) Eosinophils # (Manual) PT INR APTT D-Dimer Heparin Anti-Xa Level ABG pH POC ABG pCO2 POC ABG pO2 ABG pO2 ABG HCO3 ABG O2 Saturation ABG Base Excess ABG Hemoglobin ABG Oxyhemoglobin ABG Sodium ABG Potassium ABG Chloride ABG Glucose Oxyhemoglobin Carboxyhemoglobin Sodium Potassium Chloride Carbon Dioxide BUN Creatinine Glucose POC Glucose 165 H Lactic Acid Calcium Magnesium Ferritin Total Bilirubin Direct Bilirubin AST ALT Alkaline Phosphatase Lactate Dehydrogenase C-Reactive Protein Total Protein Albumin Triglycerides 1544 H 1799 H Lipase Arterial Blood Glucose Arterial Blood Ionized Calcium Urine WBC (Auto) Coronavirus (PCR) SARS-CoV-2 IgG Ab Crossmatch 06/29/20 06/29/20 06/29/20 09:36 12:02 18:00 WBC RBC Hgb Hct MCV MCH MCHC RDW Lymph % (Auto) [place] % (Auto) Lymph # (Auto) [place] # (Auto) Baso # (Auto) Seg Neutrophils % Seg Neuts % (Manual) Lymphocytes % (Manual) Nucleated RBC % Seg Neutrophils # Seg Neutrophils # Man Lymphocytes # (Manual) Monocytes # (Manual) Eosinophils # (Manual) PT INR APTT D-Dimer Heparin Anti-Xa Level ABG pH POC ABG pCO2 POC ABG pO2 ABG pO2 ABG HCO3 ABG O2 Saturation ABG Base Excess ABG Hemoglobin ABG Oxyhemoglobin ABG Sodium ABG Potassium ABG Chloride ABG Glucose Oxyhemoglobin Carboxyhemoglobin Sodium Potassium Chloride Carbon Dioxide BUN Creatinine Glucose POC Glucose 197 H 187 H Lactic Acid Calcium Magnesium Ferritin Total Bilirubin Direct Bilirubin AST ALT Alkaline Phosphatase Lactate Dehydrogenase C-Reactive Protein Total Protein Albumin Triglycerides Lipase 86 H Arterial Blood Glucose Arterial Blood Ionized Calcium Urine WBC (Auto) Coronavirus (PCR) SARS-CoV-2 IgG Ab Crossmatch 06/29/20 06/30/20 06/30/20 23:33 03:46 05:50 WBC RBC Hgb Hct MCV MCH MCHC RDW Lymph % (Auto) [place] % (Auto) Lymph # (Auto) [place] # (Auto) Baso # (Auto) Seg Neutrophils % Seg Neuts % (Manual) Lymphocytes % (Manual) Nucleated RBC % Seg Neutrophils # Seg Neutrophils # Man Lymphocytes # (Manual) Monocytes # (Manual) Eosinophils # (Manual) PT INR APTT D-Dimer Heparin Anti-Xa Level ABG pH 7.466 H POC ABG pCO2 57.3 H POC ABG pO2 66.1 L ABG pO2 ABG HCO3 ABG O2 Saturation ABG Base Excess ABG Hemoglobin 10.2 L ABG Oxyhemoglobin 92.3 L ABG Sodium 134.4 L ABG Potassium 3.2 L ABG Chloride 94.0 L ABG Glucose 178 H Oxyhemoglobin Carboxyhemoglobin Sodium Potassium Chloride Carbon Dioxide BUN Creatinine Glucose POC Glucose 170 H 170 H Lactic Acid Calcium Magnesium Ferritin Total Bilirubin Direct Bilirubin AST ALT Alkaline Phosphatase Lactate Dehydrogenase C-Reactive Protein Total Protein Albumin Triglycerides Lipase Arterial Blood Glucose 178 H Arterial Blood Ionized Calcium Urine WBC (Auto) Coronavirus (PCR) SARS-CoV-2 IgG Ab Crossmatch 06/30/20 06/30/20 06/30/20 07:00 07:00 12:04 WBC 15.6 H RBC 2.91 L Hgb 9.8 L Hct 29.7 L MCV 102 H MCH 34 H MCHC RDW 17.8 H Lymph % (Auto) [place] % (Auto) Lymph # (Auto) [place] # (Auto) Baso # (Auto) Seg Neutrophils % Seg Neuts % (Manual) Lymphocytes % (Manual) 5.0 L Nucleated RBC % Seg Neutrophils # Seg Neutrophils # Man 14.8 H Lymphocytes # (Manual) 0.8 L Monocytes # (Manual) Eosinophils # (Manual) PT INR APTT D-Dimer Heparin Anti-Xa Level ABG pH POC ABG pCO2 POC ABG pO2 ABG pO2 ABG HCO3 ABG O2 Saturation ABG Base Excess ABG Hemoglobin ABG Oxyhemoglobin ABG Sodium ABG Potassium ABG Chloride ABG Glucose Oxyhemoglobin Carboxyhemoglobin Sodium Potassium Chloride 93.3 L Carbon Dioxide 43 H* BUN Creatinine 0.3 L Glucose 260 H POC Glucose 245 H Lactic Acid Calcium Magnesium Ferritin Total Bilirubin Direct Bilirubin AST ALT Alkaline Phosphatase Lactate Dehydrogenase C-Reactive Protein Total Protein Albumin 2.8 L Triglycerides 452 H Lipase Arterial Blood Glucose Arterial Blood Ionized Calcium Urine WBC (Auto) Coronavirus (PCR) SARS-CoV-2 IgG Ab Crossmatch 06/30/20 07/01/20 07/01/20 17:32 00:02 05:02 WBC RBC Hgb Hct MCV MCH MCHC RDW Lymph % (Auto) [place] % (Auto) Lymph # (Auto) [place] # (Auto) Baso # (Auto) Seg Neutrophils % Seg Neuts % (Manual) Lymphocytes % (Manual) Nucleated RBC % Seg Neutrophils # Seg Neutrophils # Man Lymphocytes # (Manual) Monocytes # (Manual) Eosinophils # (Manual) PT INR APTT D-Dimer Heparin Anti-Xa Level ABG pH POC ABG pCO2 58.1 H POC ABG pO2 ABG pO2 ABG HCO3 ABG O2 Saturation ABG Base Excess ABG Hemoglobin 11.2 L ABG Oxyhemoglobin ABG Sodium 132.7 L ABG Potassium ABG Chloride 92.0 L ABG Glucose 238 H Oxyhemoglobin Carboxyhemoglobin Sodium Potassium Chloride Carbon Dioxide BUN Creatinine Glucose POC Glucose 209 H 208 H Lactic Acid Calcium Magnesium Ferritin Total Bilirubin Direct Bilirubin AST ALT Alkaline Phosphatase Lactate Dehydrogenase C-Reactive Protein Total Protein Albumin Triglycerides Lipase Arterial Blood Glucose 238 H Arterial Blood Ionized Calcium Urine WBC (Auto) Coronavirus (PCR) SARS-CoV-2 IgG Ab Crossmatch 07/01/20 07/01/20 07/01/20 06:16 06:41 06:41 WBC 18.1 H RBC 2.33 L Hgb 7.1 L Hct 21.3 L D MCV MCH MCHC RDW Lymph % (Auto) [place] % (Auto) Lymph # (Auto) [place] # (Auto) Baso # (Auto) Seg Neutrophils % Seg Neuts % (Manual) 82.0 H Lymphocytes % (Manual) 7.0 L Nucleated RBC % 1.0 H Seg Neutrophils # Seg Neutrophils # Man 14.8 H Lymphocytes # (Manual) Monocytes # (Manual) 1.1 H Eosinophils # (Manual) 0.5 H PT INR APTT D-Dimer Heparin Anti-Xa Level < 0.10 L ABG pH POC ABG pCO2 POC ABG pO2 ABG pO2 ABG HCO3 ABG O2 Saturation ABG Base Excess ABG Hemoglobin ABG Oxyhemoglobin ABG Sodium ABG Potassium ABG Chloride ABG Glucose Oxyhemoglobin Carboxyhemoglobin Sodium Potassium Chloride Carbon Dioxide BUN Creatinine Glucose POC Glucose 180 H Lactic Acid Calcium Magnesium Ferritin Total Bilirubin Direct Bilirubin AST ALT Alkaline Phosphatase Lactate Dehydrogenase C-Reactive Protein Total Protein Albumin Triglycerides Lipase Arterial Blood Glucose Arterial Blood Ionized Calcium Urine WBC (Auto) Coronavirus (PCR) SARS-CoV-2 IgG Ab Crossmatch 07/01/20 07/01/20 07/01/20 08:11 12:04 16:16 WBC RBC Hgb Hct MCV MCH MCHC RDW Lymph % (Auto) [place] % (Auto) Lymph # (Auto) [place] # (Auto) Baso # (Auto) Seg Neutrophils % Seg Neuts % (Manual) Lymphocytes % (Manual) Nucleated RBC % Seg Neutrophils # Seg Neutrophils # Man Lymphocytes # (Manual) Monocytes # (Manual) Eosinophils # (Manual) PT INR APTT D-Dimer Heparin Anti-Xa Level 1.02 H ABG pH POC ABG pCO2 POC ABG pO2 ABG pO2 ABG HCO3 ABG O2 Saturation ABG Base Excess ABG Hemoglobin ABG Oxyhemoglobin ABG Sodium ABG Potassium ABG Chloride ABG Glucose Oxyhemoglobin Carboxyhemoglobin Sodium 135 L Potassium 3.0 L Chloride 93.1 L Carbon Dioxide 40 H BUN Creatinine 0.3 L Glucose 140 H POC Glucose 223 H Lactic Acid Calcium Magnesium Ferritin Total Bilirubin Direct Bilirubin AST ALT Alkaline Phosphatase Lactate Dehydrogenase C-Reactive Protein Total Protein Albumin Triglycerides Lipase Arterial Blood Glucose Arterial Blood Ionized Calcium Urine WBC (Auto) Coronavirus (PCR) SARS-CoV-2 IgG Ab Crossmatch 07/01/20 07/01/20 07/02/20 17:09 23:19 00:56 WBC RBC Hgb Hct MCV MCH MCHC RDW Lymph % (Auto) [place] % (Auto) Lymph # (Auto) [place] # (Auto) Baso # (Auto) Seg Neutrophils % Seg Neuts % (Manual) Lymphocytes % (Manual) Nucleated RBC % Seg Neutrophils # Seg Neutrophils # Man Lymphocytes # (Manual) Monocytes # (Manual) Eosinophils # (Manual) PT INR APTT D-Dimer Heparin Anti-Xa Level 0.22 L ABG pH POC ABG pCO2 POC ABG pO2 ABG pO2 ABG HCO3 ABG O2 Saturation ABG Base Excess ABG Hemoglobin ABG Oxyhemoglobin ABG Sodium ABG Potassium ABG Chloride ABG Glucose Oxyhemoglobin Carboxyhemoglobin Sodium Potassium Chloride Carbon Dioxide BUN Creatinine Glucose POC Glucose 233 H 255 H Lactic Acid Calcium Magnesium Ferritin Total Bilirubin Direct Bilirubin AST ALT Alkaline Phosphatase Lactate Dehydrogenase C-Reactive Protein Total Protein Albumin Triglycerides Lipase Arterial Blood Glucose Arterial Blood Ionized Calcium Urine WBC (Auto) Coronavirus (PCR) SARS-CoV-2 IgG Ab Crossmatch 07/02/20 07/02/20 07/02/20 03:51 05:35 11:39 WBC RBC Hgb Hct MCV MCH MCHC RDW Lymph % (Auto) [place] % (Auto) Lymph # (Auto) [place] # (Auto) Baso # (Auto) Seg Neutrophils % Seg Neuts % (Manual) Lymphocytes % (Manual) Nucleated RBC % Seg Neutrophils # Seg Neutrophils # Man Lymphocytes # (Manual) Monocytes # (Manual) Eosinophils # (Manual) PT INR APTT D-Dimer Heparin Anti-Xa Level ABG pH POC ABG pCO2 54.9 H POC ABG pO2 52.1 L ABG pO2 ABG HCO3 ABG O2 Saturation ABG Base Excess ABG Hemoglobin 11.9 L ABG Oxyhemoglobin 82.8 L ABG Sodium 130.2 L ABG Potassium ABG Chloride 92.0 L ABG Glucose 249 H Oxyhemoglobin Carboxyhemoglobin 1.9 H Sodium Potassium Chloride Carbon Dioxide BUN Creatinine Glucose POC Glucose 205 H 235 H Lactic Acid Calcium Magnesium Ferritin Total Bilirubin Direct Bilirubin AST ALT Alkaline Phosphatase Lactate Dehydrogenase C-Reactive Protein Total Protein Albumin Triglycerides Lipase Arterial Blood Glucose 249 H Arterial Blood Ionized Calcium Urine WBC (Auto) Coronavirus (PCR) SARS-CoV-2 IgG Ab Crossmatch 07/02/20 07/02/20 07/02/20 16:08 16:08 17:54 WBC 19.8 H RBC 3.28 L Hgb 10.7 L D Hct 32.7 L D MCV 100 H MCH 33 H MCHC RDW 17.2 H Lymph % (Auto) [place] % (Auto) Lymph # (Auto) [place] # (Auto) Baso # (Auto) Seg Neutrophils % Seg Neuts % (Manual) Lymphocytes % (Manual) Nucleated RBC % Seg Neutrophils # Seg Neutrophils # Man Lymphocytes # (Manual) Monocytes # (Manual) Eosinophils # (Manual) PT INR APTT D-Dimer Heparin Anti-Xa Level ABG pH POC ABG pCO2 POC ABG pO2 ABG pO2 ABG HCO3 ABG O2 Saturation ABG Base Excess ABG Hemoglobin ABG Oxyhemoglobin ABG Sodium ABG Potassium ABG Chloride ABG Glucose Oxyhemoglobin Carboxyhemoglobin Sodium 136 L Potassium Chloride 92.4 L Carbon Dioxide 35 H BUN Creatinine 0.3 L Glucose 203 H POC Glucose 175 H Lactic Acid Calcium Magnesium Ferritin Total Bilirubin Direct Bilirubin AST ALT Alkaline Phosphatase Lactate Dehydrogenase C-Reactive Protein Total Protein Albumin Triglycerides Lipase Arterial Blood Glucose Arterial Blood Ionized Calcium Urine WBC (Auto) Coronavirus (PCR) SARS-CoV-2 IgG Ab Crossmatch 07/02/20 07/03/20 07/03/20 23:46 03:25 05:54 WBC RBC Hgb Hct MCV MCH MCHC RDW Lymph % (Auto) [place] % (Auto) Lymph # (Auto) [place] # (Auto) Baso # (Auto) Seg Neutrophils % Seg Neuts % (Manual) Lymphocytes % (Manual) Nucleated RBC % Seg Neutrophils # Seg Neutrophils # Man Lymphocytes # (Manual) Monocytes # (Manual) Eosinophils # (Manual) PT INR APTT D-Dimer Heparin Anti-Xa Level ABG pH 7.468 H POC ABG pCO2 51.5 H POC ABG pO2 ABG pO2 ABG HCO3 ABG O2 Saturation ABG Base Excess ABG Hemoglobin ABG Oxyhemoglobin ABG Sodium 130.2 L ABG Potassium ABG Chloride 91.0 L ABG Glucose 210 H Oxyhemoglobin Carboxyhemoglobin 1.6 H Sodium Potassium Chloride Carbon Dioxide BUN Creatinine Glucose POC Glucose 173 H 125 H Lactic Acid Calcium Magnesium Ferritin Total Bilirubin Direct Bilirubin AST ALT Alkaline Phosphatase Lactate Dehydrogenase C-Reactive Protein Total Protein Albumin Triglycerides Lipase Arterial Blood Glucose 210 H Arterial Blood Ionized Calcium Urine WBC (Auto) Coronavirus (PCR) SARS-CoV-2 IgG Ab Crossmatch 07/03/20 07/03/20 07/03/20 11:43 12:20 12:20 WBC 16.5 H RBC 3.13 L Hgb 10.4 L Hct 31.8 L MCV 102 H MCH 33 H MCHC RDW 17.2 H Lymph % (Auto) [place] % (Auto) Lymph # (Auto) [place] # (Auto) Baso # (Auto) Seg Neutrophils % Seg Neuts % (Manual) Lymphocytes % (Manual) Nucleated RBC % Seg Neutrophils # Seg Neutrophils # Man Lymphocytes # (Manual) Monocytes # (Manual) Eosinophils # (Manual) PT INR APTT D-Dimer Heparin Anti-Xa Level ABG pH POC ABG pCO2 POC ABG pO2 ABG pO2 ABG HCO3 ABG O2 Saturation ABG Base Excess ABG Hemoglobin ABG Oxyhemoglobin ABG Sodium ABG Potassium ABG Chloride ABG Glucose Oxyhemoglobin Carboxyhemoglobin Sodium 132 L Potassium Chloride 88.5 L Carbon Dioxide 37 H BUN Creatinine 0.3 L Glucose 230 H POC Glucose 223 H Lactic Acid Calcium Magnesium Ferritin Total Bilirubin Direct Bilirubin AST ALT Alkaline Phosphatase Lactate Dehydrogenase C-Reactive Protein Total Protein Albumin Triglycerides Lipase Arterial Blood Glucose Arterial Blood Ionized Calcium Urine WBC (Auto) Coronavirus (PCR) SARS-CoV-2 IgG Ab Crossmatch 07/03/20 07/03/20 07/04/20 17:24 21:41 00:54 WBC RBC Hgb Hct MCV MCH MCHC RDW Lymph % (Auto) [place] % (Auto) Lymph # (Auto) [place] # (Auto) Baso # (Auto) Seg Neutrophils % Seg Neuts % (Manual) Lymphocytes % (Manual) Nucleated RBC % Seg Neutrophils # Seg Neutrophils # Man Lymphocytes # (Manual) Monocytes # (Manual) Eosinophils # (Manual) PT INR APTT D-Dimer Heparin Anti-Xa Level ABG pH POC ABG pCO2 POC ABG pO2 ABG pO2 ABG HCO3 ABG O2 Saturation ABG Base Excess ABG Hemoglobin ABG Oxyhemoglobin ABG Sodium ABG Potassium ABG Chloride ABG Glucose Oxyhemoglobin Carboxyhemoglobin Sodium Potassium Chloride Carbon Dioxide BUN Creatinine Glucose POC Glucose 163 H 220 H 195 H Lactic Acid Calcium Magnesium Ferritin Total Bilirubin Direct Bilirubin AST ALT Alkaline Phosphatase Lactate Dehydrogenase C-Reactive Protein Total Protein Albumin Triglycerides Lipase Arterial Blood Glucose Arterial Blood Ionized Calcium Urine WBC (Auto) Coronavirus (PCR) SARS-CoV-2 IgG Ab Crossmatch 07/04/20 07/04/20 07/04/20 03:25 04:00 04:00 WBC 14.9 H RBC 2.91 L Hgb 9.5 L Hct 29.2 L MCV 100 H MCH 33 H MCHC RDW 16.7 H Lymph % (Auto) 8.4 L [place] % (Auto) Lymph # (Auto) [place] # (Auto) 1.1 H Baso # (Auto) Seg Neutrophils % 84.2 H Seg Neuts % (Manual) Lymphocytes % (Manual) Nucleated RBC % Seg Neutrophils # 12.6 H Seg Neutrophils # Man Lymphocytes # (Manual) Monocytes # (Manual) Eosinophils # (Manual) PT INR APTT D-Dimer Heparin Anti-Xa Level ABG pH 7.474 H POC ABG pCO2 POC ABG pO2 51.8 L ABG pO2 ABG HCO3 ABG O2 Saturation ABG Base Excess ABG Hemoglobin ABG Oxyhemoglobin ABG Sodium ABG Potassium ABG Chloride ABG Glucose Oxyhemoglobin Carboxyhemoglobin Sodium Potassium 3.4 L Chloride 92.1 L Carbon Dioxide 34 H BUN Creatinine 0.3 L Glucose 173 H POC Glucose Lactic Acid Calcium Magnesium Ferritin Total Bilirubin Direct Bilirubin AST ALT Alkaline Phosphatase Lactate Dehydrogenase C-Reactive Protein Total Protein Albumin Triglycerides Lipase Arterial Blood Glucose Arterial Blood Ionized Calcium Urine WBC (Auto) Coronavirus (PCR) SARS-CoV-2 IgG Ab Crossmatch 07/04/20 07/04/20 07/04/20 06:18 11:39 17:18 WBC RBC Hgb Hct MCV MCH MCHC RDW Lymph % (Auto) [place] % (Auto) Lymph # (Auto) [place] # (Auto) Baso # (Auto) Seg Neutrophils % Seg Neuts % (Manual) Lymphocytes % (Manual) Nucleated RBC % Seg Neutrophils # Seg Neutrophils # Man Lymphocytes # (Manual) Monocytes # (Manual) Eosinophils # (Manual) PT INR APTT D-Dimer Heparin Anti-Xa Level ABG pH POC ABG pCO2 POC ABG pO2 ABG pO2 ABG HCO3 ABG O2 Saturation ABG Base Excess ABG Hemoglobin ABG Oxyhemoglobin ABG Sodium ABG Potassium ABG Chloride ABG Glucose Oxyhemoglobin Carboxyhemoglobin Sodium Potassium Chloride Carbon Dioxide BUN Creatinine Glucose POC Glucose 158 H 257 H 148 H Lactic Acid Calcium Magnesium Ferritin Total Bilirubin Direct Bilirubin AST ALT Alkaline Phosphatase Lactate Dehydrogenase C-Reactive Protein Total Protein Albumin Triglycerides Lipase Arterial Blood Glucose Arterial Blood Ionized Calcium Urine WBC (Auto) Coronavirus (PCR) SARS-CoV-2 IgG Ab Crossmatch 07/04/20 07/05/20 07/05/20 23:23 03:13 05:18 WBC 13.3 H RBC 2.90 L Hgb 9.8 L Hct 29.3 L MCV 101 H MCH 34 H MCHC RDW 17.0 H Lymph % (Auto) 11.1 L [place] % (Auto) Lymph # (Auto) [place] # (Auto) Baso # (Auto) Seg Neutrophils % 82.3 H Seg Neuts % (Manual) Lymphocytes % (Manual) Nucleated RBC % Seg Neutrophils # 10.9 H Seg Neutrophils # Man Lymphocytes # (Manual) Monocytes # (Manual) Eosinophils # (Manual) PT INR APTT D-Dimer Heparin Anti-Xa Level ABG pH 7.48 H POC ABG pCO2 52.0 H POC ABG pO2 ABG pO2 ABG HCO3 ABG O2 Saturation ABG Base Excess ABG Hemoglobin 10.0 L ABG Oxyhemoglobin ABG Sodium 131.0 L ABG Potassium 3.3 L ABG Chloride 93.0 L ABG Glucose 177 H Oxyhemoglobin Carboxyhemoglobin Sodium Potassium Chloride Carbon Dioxide BUN Creatinine Glucose POC Glucose 227 H Lactic Acid Calcium Magnesium Ferritin Total Bilirubin Direct Bilirubin AST ALT Alkaline Phosphatase Lactate Dehydrogenase C-Reactive Protein Total Protein Albumin Triglycerides Lipase Arterial Blood Glucose 177 H Arterial Blood Ionized Calcium Urine WBC (Auto) Coronavirus (PCR) SARS-CoV-2 IgG Ab Crossmatch 07/05/20 07/05/20 07/05/20 05:18 05:25 05:57 WBC RBC Hgb Hct MCV MCH MCHC RDW Lymph % (Auto) [place] % (Auto) Lymph # (Auto) [place] # (Auto) Baso # (Auto) Seg Neutrophils % Seg Neuts % (Manual) Lymphocytes % (Manual) Nucleated RBC % Seg Neutrophils # Seg Neutrophils # Man Lymphocytes # (Manual) Monocytes # (Manual) Eosinophils # (Manual) PT INR APTT D-Dimer Heparin Anti-Xa Level ABG pH 7.519 H POC ABG pCO2 POC ABG pO2 198.6 H ABG pO2 ABG HCO3 ABG O2 Saturation ABG Base Excess ABG Hemoglobin 10.3 L ABG Oxyhemoglobin 98.7 H ABG Sodium 133.6 L ABG Potassium 3.3 L ABG Chloride 93.0 L ABG Glucose 175 H Oxyhemoglobin Carboxyhemoglobin Sodium Potassium 3.4 L Chloride 92.5 L Carbon Dioxide 36 H BUN Creatinine 0.3 L Glucose 148 H POC Glucose 170 H Lactic Acid Calcium Magnesium Ferritin Total Bilirubin Direct Bilirubin AST ALT Alkaline Phosphatase Lactate Dehydrogenase C-Reactive Protein Total Protein Albumin Triglycerides Lipase Arterial Blood Glucose 175 H Arterial Blood Ionized Calcium Urine WBC (Auto) Coronavirus (PCR) SARS-CoV-2 IgG Ab Crossmatch 07/05/20 07/05/20 07/06/20 11:37 18:39 00:04 WBC RBC Hgb Hct MCV MCH MCHC RDW Lymph % (Auto) [place] % (Auto) Lymph # (Auto) [place] # (Auto) Baso # (Auto) Seg Neutrophils % Seg Neuts % (Manual) Lymphocytes % (Manual) Nucleated RBC % Seg Neutrophils # Seg Neutrophils # Man Lymphocytes # (Manual) Monocytes # (Manual) Eosinophils # (Manual) PT INR APTT D-Dimer Heparin Anti-Xa Level ABG pH POC ABG pCO2 POC ABG pO2 ABG pO2 ABG HCO3 ABG O2 Saturation ABG Base Excess ABG Hemoglobin ABG Oxyhemoglobin ABG Sodium ABG Potassium ABG Chloride ABG Glucose Oxyhemoglobin Carboxyhemoglobin Sodium Potassium Chloride Carbon Dioxide BUN Creatinine Glucose POC Glucose 195 H 200 H 222 H Lactic Acid Calcium Magnesium Ferritin Total Bilirubin Direct Bilirubin AST ALT Alkaline Phosphatase Lactate Dehydrogenase C-Reactive Protein Total Protein Albumin Triglycerides Lipase Arterial Blood Glucose Arterial Blood Ionized Calcium Urine WBC (Auto) Coronavirus (PCR) SARS-CoV-2 IgG Ab Crossmatch 07/06/20 07/06/20 07/06/20 05:25 06:52 06:52 WBC 15.8 H RBC 3.17 L Hgb 10.4 L Hct 31.5 L MCV 99 H MCH 33 H MCHC RDW 17.0 H Lymph % (Auto) [place] % (Auto) Lymph # (Auto) [place] # (Auto) Baso # (Auto) Seg Neutrophils % Seg Neuts % (Manual) Lymphocytes % (Manual) Nucleated RBC % Seg Neutrophils # Seg Neutrophils # Man Lymphocytes # (Manual) Monocytes # (Manual) Eosinophils # (Manual) PT INR APTT D-Dimer Heparin Anti-Xa Level ABG pH POC ABG pCO2 POC ABG pO2 ABG pO2 ABG HCO3 ABG O2 Saturation ABG Base Excess ABG Hemoglobin ABG Oxyhemoglobin ABG Sodium ABG Potassium ABG Chloride ABG Glucose Oxyhemoglobin Carboxyhemoglobin Sodium 135 L Potassium 3.4 L Chloride 91.9 L Carbon Dioxide 38 H BUN Creatinine 0.3 L Glucose 189 H POC Glucose 165 H Lactic Acid Calcium Magnesium Ferritin Total Bilirubin Direct Bilirubin AST ALT Alkaline Phosphatase Lactate Dehydrogenase C-Reactive Protein Total Protein Albumin Triglycerides Lipase Arterial Blood Glucose Arterial Blood Ionized Calcium Urine WBC (Auto) Coronavirus (PCR) SARS-CoV-2 IgG Ab Crossmatch 07/06/20 07/06/20 07/06/20 13:01 18:04 23:08 WBC RBC Hgb Hct MCV MCH MCHC RDW Lymph % (Auto) [place] % (Auto) Lymph # (Auto) [place] # (Auto) Baso # (Auto) Seg Neutrophils % Seg Neuts % (Manual) Lymphocytes % (Manual) Nucleated RBC % Seg Neutrophils # Seg Neutrophils # Man Lymphocytes # (Manual) Monocytes # (Manual) Eosinophils # (Manual) PT INR APTT D-Dimer Heparin Anti-Xa Level ABG pH POC ABG pCO2 POC ABG pO2 ABG pO2 ABG HCO3 ABG O2 Saturation ABG Base Excess ABG Hemoglobin ABG Oxyhemoglobin ABG Sodium ABG Potassium ABG Chloride ABG Glucose Oxyhemoglobin Carboxyhemoglobin Sodium Potassium Chloride Carbon Dioxide BUN Creatinine Glucose POC Glucose 195 H 169 H 173 H Lactic Acid Calcium Magnesium Ferritin Total Bilirubin Direct Bilirubin AST ALT Alkaline Phosphatase Lactate Dehydrogenase C-Reactive Protein Total Protein Albumin Triglycerides Lipase Arterial Blood Glucose Arterial Blood Ionized Calcium Urine WBC (Auto) Coronavirus (PCR) SARS-CoV-2 IgG Ab Crossmatch 07/07/20 07/07/20 07/07/20 05:35 05:35 05:39 WBC 17.6 H RBC 3.16 L Hgb 10.4 L Hct 31.5 L MCV 100 H MCH 33 H MCHC RDW 16.7 H Lymph % (Auto) 11.1 L [place] % (Auto) Lymph # (Auto) [place] # (Auto) 1.0 H Baso # (Auto) Seg Neutrophils % 83.0 H Seg Neuts % (Manual) Lymphocytes % (Manual) Nucleated RBC % Seg Neutrophils # 14.6 H Seg Neutrophils # Man Lymphocytes # (Manual) Monocytes # (Manual) Eosinophils # (Manual) PT INR APTT D-Dimer Heparin Anti-Xa Level ABG pH POC ABG pCO2 POC ABG pO2 ABG pO2 ABG HCO3 ABG O2 Saturation ABG Base Excess ABG Hemoglobin ABG Oxyhemoglobin ABG Sodium ABG Potassium ABG Chloride ABG Glucose Oxyhemoglobin Carboxyhemoglobin Sodium 135 L Potassium 3.4 L Chloride 94.3 L Carbon Dioxide 32 H BUN Creatinine 0.2 L Glucose 240 H POC Glucose 191 H Lactic Acid Calcium Magnesium Ferritin Total Bilirubin Direct Bilirubin AST ALT Alkaline Phosphatase Lactate Dehydrogenase C-Reactive Protein Total Protein Albumin Triglycerides Lipase Arterial Blood Glucose Arterial Blood Ionized Calcium Urine WBC (Auto) Coronavirus (PCR) SARS-CoV-2 IgG Ab Crossmatch 07/07/20 07/07/20 07/07/20 12:08 16:39 23:41 WBC RBC Hgb Hct MCV MCH MCHC RDW Lymph % (Auto) [place] % (Auto) Lymph # (Auto) [place] # (Auto) Baso # (Auto) Seg Neutrophils % Seg Neuts % (Manual) Lymphocytes % (Manual) Nucleated RBC % Seg Neutrophils # Seg Neutrophils # Man Lymphocytes # (Manual) Monocytes # (Manual) Eosinophils # (Manual) PT INR APTT D-Dimer Heparin Anti-Xa Level ABG pH POC ABG pCO2 POC ABG pO2 ABG pO2 ABG HCO3 ABG O2 Saturation ABG Base Excess ABG Hemoglobin ABG Oxyhemoglobin ABG Sodium ABG Potassium ABG Chloride ABG Glucose Oxyhemoglobin Carboxyhemoglobin Sodium Potassium Chloride Carbon Dioxide BUN Creatinine Glucose POC Glucose 248 H 209 H 231 H Lactic Acid Calcium Magnesium Ferritin Total Bilirubin Direct Bilirubin AST ALT Alkaline Phosphatase Lactate Dehydrogenase C-Reactive Protein Total Protein Albumin Triglycerides Lipase Arterial Blood Glucose Arterial Blood Ionized Calcium Urine WBC (Auto) Coronavirus (PCR) SARS-CoV-2 IgG Ab Crossmatch 07/08/20 07/08/20 07/08/20 04:58 04:58 05:38 WBC 21.0 H RBC 2.86 L Hgb 9.2 L Hct 28.6 L MCV 100 H MCH MCHC RDW 16.7 H Lymph % (Auto) [place] % (Auto) Lymph # (Auto) [place] # (Auto) Baso # (Auto) Seg Neutrophils % Seg Neuts % (Manual) 93.0 H Lymphocytes % (Manual) 3.0 L Nucleated RBC % Seg Neutrophils # Seg Neutrophils # Man 19.5 H Lymphocytes # (Manual) 0.6 L Monocytes # (Manual) Eosinophils # (Manual) PT INR APTT D-Dimer Heparin Anti-Xa Level ABG pH POC ABG pCO2 POC ABG pO2 ABG pO2 ABG HCO3 ABG O2 Saturation ABG Base Excess ABG Hemoglobin ABG Oxyhemoglobin ABG Sodium ABG Potassium ABG Chloride ABG Glucose Oxyhemoglobin Carboxyhemoglobin Sodium Potassium 3.0 L Chloride Carbon Dioxide BUN Creatinine 0.2 L Glucose 201 H POC Glucose 161 H Lactic Acid Calcium 7.9 L D Magnesium Ferritin Total Bilirubin Direct Bilirubin AST ALT Alkaline Phosphatase Lactate Dehydrogenase C-Reactive Protein Total Protein Albumin Triglycerides Lipase Arterial Blood Glucose Arterial Blood Ionized Calcium Urine WBC (Auto) Coronavirus (PCR) SARS-CoV-2 IgG Ab Crossmatch 07/08/20 07/08/20 07/08/20 12:19 16:26 Unknown WBC RBC Hgb Hct MCV MCH MCHC RDW Lymph % (Auto) [place] % (Auto) Lymph # (Auto) [place] # (Auto) Baso # (Auto) Seg Neutrophils % Seg Neuts % (Manual) Lymphocytes % (Manual) Nucleated RBC % Seg Neutrophils # Seg Neutrophils # Man Lymphocytes # (Manual) Monocytes # (Manual) Eosinophils # (Manual) PT INR APTT D-Dimer Heparin Anti-Xa Level ABG pH POC ABG pCO2 POC ABG pO2 ABG pO2 75.3 L ABG HCO3 34.3 H ABG O2 Saturation ABG Base Excess 8.7 H ABG Hemoglobin 10.2 L ABG Oxyhemoglobin ABG Sodium ABG Potassium ABG Chloride ABG Glucose Oxyhemoglobin 93.7 L Carboxyhemoglobin Sodium Potassium Chloride Carbon Dioxide BUN Creatinine Glucose POC Glucose 152 H 173 H Lactic Acid Calcium Magnesium Ferritin Total Bilirubin Direct Bilirubin AST ALT Alkaline Phosphatase Lactate Dehydrogenase C-Reactive Protein Total Protein Albumin Triglycerides Lipase Arterial Blood Glucose Arterial Blood Ionized Calcium Urine WBC (Auto) Coronavirus (PCR) SARS-CoV-2 IgG Ab Crossmatch 07/09/20 07/09/20 07/09/20 00:01 06:00 11:55 WBC RBC Hgb Hct MCV MCH MCHC RDW Lymph % (Auto) [place] % (Auto) Lymph # (Auto) [place] # (Auto) Baso # (Auto) Seg Neutrophils % Seg Neuts % (Manual) Lymphocytes % (Manual) Nucleated RBC % Seg Neutrophils # Seg Neutrophils # Man Lymphocytes # (Manual) Monocytes # (Manual) Eosinophils # (Manual) PT INR APTT D-Dimer Heparin Anti-Xa Level ABG pH POC ABG pCO2 POC ABG pO2 ABG pO2 ABG HCO3 ABG O2 Saturation ABG Base Excess ABG Hemoglobin ABG Oxyhemoglobin ABG Sodium ABG Potassium ABG Chloride ABG Glucose Oxyhemoglobin Carboxyhemoglobin Sodium Potassium Chloride Carbon Dioxide BUN Creatinine Glucose POC Glucose 207 H 141 H 228 H Lactic Acid Calcium Magnesium Ferritin Total Bilirubin Direct Bilirubin AST ALT Alkaline Phosphatase Lactate Dehydrogenase C-Reactive Protein Total Protein Albumin Triglycerides Lipase Arterial Blood Glucose Arterial Blood Ionized Calcium Urine WBC (Auto) Coronavirus (PCR) SARS-CoV-2 IgG Ab Crossmatch 07/09/20 07/09/20 07/09/20 16:47 23:53 Unknown WBC RBC Hgb Hct MCV MCH MCHC RDW Lymph % (Auto) [place] % (Auto) Lymph # (Auto) [place] # (Auto) Baso # (Auto) Seg Neutrophils % Seg Neuts % (Manual) Lymphocytes % (Manual) Nucleated RBC % Seg Neutrophils # Seg Neutrophils # Man Lymphocytes # (Manual) Monocytes # (Manual) Eosinophils # (Manual) PT INR APTT D-Dimer Heparin Anti-Xa Level ABG pH POC ABG pCO2 POC ABG pO2 ABG pO2 ABG HCO3 ABG O2 Saturation ABG Base Excess ABG Hemoglobin ABG Oxyhemoglobin ABG Sodium ABG Potassium ABG Chloride ABG Glucose Oxyhemoglobin Carboxyhemoglobin Sodium 132 L Potassium Chloride 92.7 L Carbon Dioxide 35 H BUN Creatinine 0.2 L Glucose 234 H POC Glucose 136 H 219 H Lactic Acid Calcium Magnesium Ferritin Total Bilirubin Direct Bilirubin AST ALT Alkaline Phosphatase Lactate Dehydrogenase C-Reactive Protein Total Protein Albumin Triglycerides Lipase Arterial Blood Glucose Arterial Blood Ionized Calcium Urine WBC (Auto) Coronavirus (PCR) SARS-CoV-2 IgG Ab Crossmatch 07/10/20 07/10/20 07/10/20 05:20 12:05 18:38 WBC RBC Hgb Hct MCV MCH MCHC RDW Lymph % (Auto) [place] % (Auto) Lymph # (Auto) [place] # (Auto) Baso # (Auto) Seg Neutrophils % Seg Neuts % (Manual) Lymphocytes % (Manual) Nucleated RBC % Seg Neutrophils # Seg Neutrophils # Man Lymphocytes # (Manual) Monocytes # (Manual) Eosinophils # (Manual) PT INR APTT D-Dimer Heparin Anti-Xa Level ABG pH POC ABG pCO2 POC ABG pO2 ABG pO2 ABG HCO3 ABG O2 Saturation ABG Base Excess ABG Hemoglobin ABG Oxyhemoglobin ABG Sodium ABG Potassium ABG Chloride ABG Glucose Oxyhemoglobin Carboxyhemoglobin Sodium Potassium Chloride Carbon Dioxide BUN Creatinine Glucose POC Glucose 221 H 174 H 152 H Lactic Acid Calcium Magnesium Ferritin Total Bilirubin Direct Bilirubin AST ALT Alkaline Phosphatase Lactate Dehydrogenase C-Reactive Protein Total Protein Albumin Triglycerides Lipase Arterial Blood Glucose Arterial Blood Ionized Calcium Urine WBC (Auto) Coronavirus (PCR) SARS-CoV-2 IgG Ab Crossmatch 07/11/20 07/11/20 07/11/20 00:16 05:42 08:13 WBC 11.9 H RBC 3.13 L Hgb 10.2 L Hct 31.2 L MCV 100 H MCH 33 H MCHC RDW 16.4 H Lymph % (Auto) [place] % (Auto) 9.3 H Lymph # (Auto) [place] # (Auto) 1.1 H Baso # (Auto) Seg Neutrophils % 72.7 H Seg Neuts % (Manual) Lymphocytes % (Manual) Nucleated RBC % Seg Neutrophils # 8.7 H Seg Neutrophils # Man Lymphocytes # (Manual) Monocytes # (Manual) Eosinophils # (Manual) PT INR APTT D-Dimer Heparin Anti-Xa Level ABG pH POC ABG pCO2 POC ABG pO2 ABG pO2 ABG HCO3 ABG O2 Saturation ABG Base Excess ABG Hemoglobin ABG Oxyhemoglobin ABG Sodium ABG Potassium ABG Chloride ABG Glucose Oxyhemoglobin Carboxyhemoglobin Sodium Potassium Chloride Carbon Dioxide BUN Creatinine Glucose POC Glucose 170 H 186 H Lactic Acid Calcium Magnesium Ferritin Total Bilirubin Direct Bilirubin AST ALT Alkaline Phosphatase Lactate Dehydrogenase C-Reactive Protein Total Protein Albumin Triglycerides Lipase Arterial Blood Glucose Arterial Blood Ionized Calcium Urine WBC (Auto) Coronavirus (PCR) SARS-CoV-2 IgG Ab Crossmatch 07/11/20 07/11/20 07/11/20 08:13 11:35 18:07 WBC RBC Hgb Hct MCV MCH MCHC RDW Lymph % (Auto) [place] % (Auto) Lymph # (Auto) [place] # (Auto) Baso # (Auto) Seg Neutrophils % Seg Neuts % (Manual) Lymphocytes % (Manual) Nucleated RBC % Seg Neutrophils # Seg Neutrophils # Man Lymphocytes # (Manual) Monocytes # (Manual) Eosinophils # (Manual) PT INR APTT D-Dimer Heparin Anti-Xa Level ABG pH POC ABG pCO2 POC ABG pO2 ABG pO2 ABG HCO3 ABG O2 Saturation ABG Base Excess ABG Hemoglobin ABG Oxyhemoglobin ABG Sodium ABG Potassium ABG Chloride ABG Glucose Oxyhemoglobin Carboxyhemoglobin Sodium 135 L Potassium Chloride 92.8 L Carbon Dioxide 38 H BUN Creatinine 0.2 L Glucose 132 H POC Glucose 129 H 156 H Lactic Acid Calcium Magnesium Ferritin Total Bilirubin Direct Bilirubin AST ALT Alkaline Phosphatase Lactate Dehydrogenase C-Reactive Protein Total Protein Albumin Triglycerides Lipase Arterial Blood Glucose Arterial Blood Ionized Calcium Urine WBC (Auto) Coronavirus (PCR) SARS-CoV-2 IgG Ab Crossmatch 07/11/20 07/11/20 07/12/20 18:36 23:18 05:28 WBC RBC Hgb Hct MCV MCH MCHC RDW Lymph % (Auto) [place] % (Auto) Lymph # (Auto) [place] # (Auto) Baso # (Auto) Seg Neutrophils % Seg Neuts % (Manual) Lymphocytes % (Manual) Nucleated RBC % Seg Neutrophils # Seg Neutrophils # Man Lymphocytes # (Manual) Monocytes # (Manual) Eosinophils # (Manual) PT INR APTT D-Dimer Heparin Anti-Xa Level ABG pH POC ABG pCO2 POC ABG pO2 70.9 L ABG pO2 ABG HCO3 ABG O2 Saturation ABG Base Excess ABG Hemoglobin 10.8 L ABG Oxyhemoglobin 92.5 L ABG Sodium 131.8 L ABG Potassium 3.2 L ABG Chloride 91.0 L ABG Glucose 181 H Oxyhemoglobin Carboxyhemoglobin Sodium Potassium Chloride Carbon Dioxide BUN Creatinine Glucose POC Glucose 189 H 190 H Lactic Acid Calcium Magnesium Ferritin Total Bilirubin Direct Bilirubin AST ALT Alkaline Phosphatase Lactate Dehydrogenase C-Reactive Protein Total Protein Albumin Triglycerides Lipase Arterial Blood Glucose 181 H Arterial Blood Ionized Calcium Urine WBC (Auto) Coronavirus (PCR) SARS-CoV-2 IgG Ab Crossmatch 07/12/20 11:33 WBC RBC Hgb Hct MCV MCH MCHC RDW Lymph % (Auto) [place] % (Auto) Lymph # (Auto) [place] # (Auto) Baso # (Auto) Seg Neutrophils % Seg Neuts % (Manual) Lymphocytes % (Manual) Nucleated RBC % Seg Neutrophils # Seg Neutrophils # Man Lymphocytes # (Manual) Monocytes # (Manual) Eosinophils # (Manual) PT INR APTT D-Dimer Heparin Anti-Xa Level ABG pH POC ABG pCO2 POC ABG pO2 ABG pO2 ABG HCO3 ABG O2 Saturation ABG Base Excess ABG Hemoglobin ABG Oxyhemoglobin ABG Sodium ABG Potassium ABG Chloride ABG Glucose Oxyhemoglobin Carboxyhemoglobin Sodium Potassium Chloride Carbon Dioxide BUN Creatinine Glucose POC Glucose 151 H Lactic Acid Calcium Magnesium Ferritin Total Bilirubin Direct Bilirubin AST ALT Alkaline Phosphatase Lactate Dehydrogenase C-Reactive Protein Total Protein Albumin Triglycerides Lipase Arterial Blood Glucose Arterial Blood Ionized Calcium Urine WBC (Auto) Coronavirus (PCR) SARS-CoV-2 IgG Ab Crossmatch Chest x-ray: image reviewed (improved infiltrates) Allied health notes reviewed: nursing
--- NOTE | 2020-07-12 13:29 | Progress Note ---
Assessment and Plan 50 yo M with 1. VDRF 2. COVID PNA 3. R PTX Plan: 1. Vent weaning per ICU team - CPAP trials on going 2. continue TF via OGT 3. on therapeutic anticoagulation - will need to be held 24 hours prior to tracheostomy placement once scheduled 4. chest tube to [id number] suction via pleurevac 5. Patient off sedation. Following commands. Discussed trach and PEG procedure with him again and explained the indication. He seems to understand. He is no longer opposed to the procedure but would like until tomorrow to make a final decision. I will follow up tomorrow. If he is agreeable to procedure, will contact daughter. T/P tentatively scheduled for Sunday 7:30 am (first available time in OR) pending patient decision. Notified Dr. Delgado. Thank you, please call with questions Subjective Date of service: 07/12/20 Narrative: Pt seen and examined. No acute changes. Off pressors and sedation. [place] TF and having BMs. Denies pain. Objective Vital Signs - 12hr 07/12/20 07/12/20 07/12/20 01:30 01:46 02:00 Temperature Pulse Rate 70 97 H 110 H Pulse Rate [ From Monitor] Respiratory 26 H 19 20 Rate Blood Pressure 73/42 129/84 120/76 O2 Sat by Pulse 95 97 96 Oximetry 07/12/20 07/12/20 07/12/20 02:15 02:30 02:45 Temperature Pulse Rate 118 H 113 H 114 H Pulse Rate [ From Monitor] Respiratory 24 26 H 25 H Rate Blood Pressure 161/93 125/74 133/78 O2 Sat by Pulse 99 92 92 Oximetry 07/12/20 07/12/20 07/12/20 03:00 03:15 03:21 Temperature 98.3 F Pulse Rate 109 H 114 H Pulse Rate [ From Monitor] Respiratory 21 23 Rate Blood Pressure 147/72 154/80 O2 Sat by Pulse 94 97 Oximetry 07/12/20 07/12/20 07/12/20 03:30 03:46 04:00 Temperature Pulse Rate 111 H 110 H 106 H Pulse Rate [ 112 H From Monitor] Respiratory 21 18 27 H Rate Blood Pressure 123/71 123/71 115/70 O2 Sat by Pulse 93 91 Oximetry 07/12/20 07/12/20 07/12/20 04:16 04:20 04:30 Temperature Pulse Rate 112 H 111 H 116 H Pulse Rate [ From Monitor] Respiratory 26 H 27 H Rate Blood Pressure 132/89 109/69 132/79 O2 Sat by Pulse 83 L 96 91 Oximetry 07/12/20 07/12/20 07/12/20 04:45 05:00 05:16 Temperature Pulse Rate 118 H 114 H 105 H Pulse Rate [ From Monitor] Respiratory 17 26 H 23 Rate Blood Pressure 133/73 127/79 109/69 O2 Sat by Pulse 93 93 93 Oximetry 07/12/20 07/12/20 07/12/20 05:30 05:45 06:00 Temperature Pulse Rate 111 H 113 H 107 H Pulse Rate [ From Monitor] Respiratory 25 H 19 20 Rate Blood Pressure 103/76 105/81 110/66 O2 Sat by Pulse 90 95 95 Oximetry 07/12/20 07/12/20 07/12/20 06:15 06:30 06:45 Temperature Pulse Rate 106 H 105 H 108 H Pulse Rate [ From Monitor] Respiratory 20 19 18 Rate Blood Pressure 113/75 113/77 117/83 O2 Sat by Pulse 93 94 95 Oximetry 07/12/20 07/12/20 07/12/20 07:00 07:15 07:30 Temperature Pulse Rate 105 H 107 H 112 H Pulse Rate [ From Monitor] Respiratory 16 21 26 H Rate Blood Pressure 121/73 127/70 124/79 O2 Sat by Pulse 95 93 92 Oximetry 07/12/20 07/12/20 07/12/20 07:45 08:00 08:15 Temperature Pulse Rate 115 H 115 H 107 H Pulse Rate [ From Monitor] Respiratory 18 20 23 Rate Blood Pressure 123/72 113/68 O2 Sat by Pulse 92 91 93 Oximetry 07/12/20 07/12/20 07/12/20 08:30 08:45 08:54 Temperature Pulse Rate 106 H 111 H 107 H Pulse Rate [ From Monitor] Respiratory 22 19 27 H Rate Blood Pressure 118/76 119/77 119/77 O2 Sat by Pulse 95 95 95 Oximetry 07/12/20 07/12/20 07/12/20 09:00 09:15 09:30 Temperature Pulse Rate 108 H 104 H 107 H Pulse Rate [ From Monitor] Respiratory 22 19 20 Rate Blood Pressure 116/63 108/69 106/73 O2 Sat by Pulse 93 95 97 Oximetry 07/12/20 07/12/20 07/12/20 09:45 10:00 10:15 Temperature Pulse Rate 109 H 146 H 132 H Pulse Rate [ From Monitor] Respiratory 22 31 H 20 Rate Blood Pressure 105/72 112/72 119/66 O2 Sat by Pulse 96 89 93 Oximetry 07/12/20 07/12/20 07/12/20 10:31 10:45 11:01 Temperature Pulse Rate 143 H 127 H 123 H Pulse Rate [ From Monitor] Respiratory 29 H 25 H 27 H Rate Blood Pressure 132/68 132/68 126/70 O2 Sat by Pulse 88 92 89 Oximetry 07/12/20 07/12/20 07/12/20 11:15 11:30 11:45 Temperature Pulse Rate 135 H 117 H 121 H Pulse Rate [ From Monitor] Respiratory 29 H 21 27 H Rate Blood Pressure 126/70 121/66 116/59 O2 Sat by Pulse 86 93 87 Oximetry 07/12/20 07/12/20 07/12/20 11:51 12:00 12:15 Temperature Pulse Rate 121 H 120 H 125 H Pulse Rate [ From Monitor] Respiratory 26 H 23 21 Rate Blood Pressure 116/59 107/69 98/36 O2 Sat by Pulse 92 91 88 Oximetry 07/12/20 07/12/20 07/12/20 12:31 12:45 13:00 Temperature Pulse Rate 131 H 132 H 119 H Pulse Rate [ From Monitor] Respiratory 21 21 26 H Rate Blood Pressure 133/77 139/70 122/60 O2 Sat by Pulse 86 94 94 Oximetry 07/12/20 13:15 Temperature Pulse Rate 118 H Pulse Rate [ From Monitor] Respiratory 23 Rate Blood Pressure 113/59 O2 Sat by Pulse 94 Oximetry - General physical appearance Narrative Exam: Gen: Awake on vent. Follows commands and answers questions appropriately. NAD ENT: ETT and OGT in place. Trachea midline, no LAD CV: S1, S2+ Resp: on vent support. R chest tube without leak, to suction Abd: soft, NT, ND Ext: edema - Labs 07/11/20 08:13 07/11/20 08:13
[2020-07-12] MEDS: LORazepam 2 MG/ML VIAL IV PRN (22:07)
[2020-07-13] MEDS: dexmedeTOMIDine 1,000 MCG in SODIUM CHLORIDE 0.9% 250ML 250 ML IV SCH ×3 (02:04→23:55)
[2020-07-13] MEDS: INSULIN LISPRO 100 UNIT/ML VIAL 3 mL SUB-Q SCH ×4 (02:05→18:46)
--- NOTE | 2020-07-13 08:58 | Progress Note ---
Assessment and Plan Assessment and plan: - Acute hypoxemic respiratory failure; Patient intubated and on vent support --Severe COVID-19 bilateral pneumonia Coronavirus protocol: IV steroid therapy, completed remdesivir, isolation precautions, contact precautions, prone positioning while in bed, pulmonary toilet. ID following SARS CoV-2 IgG positive patient is NOT a candidate for COVID convalescent plasma --Severe sepsis/septic shock, due to COVID 19 PNA cont pressors as needed -- Acute kidney injury (SEN) , likely vasomotor nephropathy Resolved, IV fluids, avoid nephrotoxins --Acute on chronic anemia Guaiac test positive GI evaluation PPIs Continue to monitor -- Elevated liver function tests Suspected secondary to alcoholic liver disease. Supportive care, alcohol cessation, patient counseled. --Colonic distention GI evaluation -recommend stool softeners Serial abdominal x-rays Monitor electrolytes and replete -- DVT prophylaxis On therapeutic Lovenox 50 YO Male with Obesity, ETOH Dependence presents to ED for evaluation for shortness of breath, generalized weakness, fatigue, malaise, body aches, decreased exercise tolerance over the past 5 days. EMS was notified and upon arrival the patient was found to be in distress with a pulse oximetry of 76% on room air as well as fever to 103 F. In the ER chest x-ray and was found to have bilateral pneumonia. Patient admitted to medical floor and initiated on pneumonia protocol as well as COVID-19 protocol. Patient reports being diagnosed with coronavirus 2 days ago before admission. 06/16/2020. Patient currently on mechanical ventilation with AC mode rate 30, tidal volume 500, FiO2 70% and PEEP of 16. Continue anticoagulation with Lovenox 110 milligrams subcu every 12 hours. Wean sedation of fentanyl/Versed as needed. Currently with IV steroids of Solu-Medrol 40 mg IV every 12 hours. Patient will likely need tracheostomy per pulmonary recommendations. Continue pressors to maintain MAP > 65. 06/17/2020. Patient currently on mechanical ventilation with AC mode rate 30, tidal volume 500, FiO2 65% and PEEP of 16. Continue anticoagulation with Lovenox 110 milligrams subcu every 12 hours. Wean sedation of fentanyl/Versed as needed. Currently with IV steroids of Solu-Medrol 40 mg IV every 12 hours. Patient will likely need tracheostomy per pulmonary recommendations. 06/18/2020. Patient currently on mechanical ventilation with AC mode rate 30, tidal volume 500, FiO2 70% and PEEP of 16. Continue Lovenox for anticoagulation and fentanyl/Versed for sedation. Wean steroids per pulmonary. CIWA protocol initiated for history of EtOH dependence 06/19/2020. Patient currently on mechanical ventilation with AC mode rate 30, tidal volume 500, FiO2 60% and PEEP of 16. Wean FiO2 as tolerated per protocol. Continue Lovenox for anticoagulation and fentanyl/Versed for sedation. Wean steroids per pulmonary. CIWA protocol initiated for history of EtOH dependence 06/20/2020. Patient currently on mechanical ventilation with AC mode rate 30, tidal volume 500, FiO2 60% and PEEP of 16. Wean FiO2 as tolerated, SBT per protocol. Continue Lovenox for anticoagulation and fentanyl/Versed for sedation. Wean steroids per pulmonary. Continue pressors to maintain MAP > 65 mmHg. Patient remains on ETT. Consider tracheostomy placement once oxygenation is better per pulmonary. CIWA protocol initiated for history of EtOH dependence. 06/21/2020. Patient with a small apical pneumothorax discovered yesterday. General surgery consulted and consider placing chest tube. Follow-up serial chest x-ray patient currently on mechanical ventilation with AC mode rate 30, tidal volume 500, FiO2 60% and PEEP of 16. Wean FiO2 as tolerated, SBT per protocol. Continue Lovenox for anticoagulation and fentanyl/Versed for sedation. Wean steroids per pulmonary. Continue pressors to maintain MAP > 65 mmHg. Patient remains on ETT. Consider tracheostomy placement once oxygenation is better per pulmonary. CIWA protocol initiated for history of EtOH dependence. 06/22. Status post right chest tube placement yesterday. Remains mechanically ventilated on pressors. Examination today shows slightly distended abdomen. KUB ordered. Awaiting stool guaiac. Plan to get a GI evaluation. 06/23. Has colonic distention on the x-ray. Discussed with GI-advised stool softeners for now and close monitoring. No indication for colonic decompression at this time. Guaiac test is positive. No emergent indication for endoscopy at this point as per GI. Continue to monitor hemoglobin. 06/24. Remains intubated. On pressors. GI following for positive guaiac stool a nd anemia, and colonic distention. 06/25. Repeat abdominal xray ordered. Remains on mechanical ventilation. 06/26. Abdominal xray - resolved colonic distension. Mechanically ventilated. 06/27. Plan for trach and PEG. 06/28: Awaiting trach and Peg. S\ome Bm REPORTED, will continue to monitor 06/29: Resume care, patient remains on ventilator support, waiting on trach and PEG placement. BM reported by the RN, continue to monitor. 06/30: Unable to wean off from vent, patient will need trach and PEG. Continue supportive care, tolerating tube feed. Monitor CBC and BMP 07/01: Continue mechanical ventilation, tube feeding as tolerated. Sedation as needed per mechanical ventilation protocol. Waiting on trach and PEG placement. 07/02: Continue current management, tube feeding, monitor CBC and BMP. Need trach and PEG-waiting on scheduling. Pulmonary critical care following. 07/03: wean off vent as tolerated. follow clinically. need trach and PEG 07/04: unable to wean. CT head ordered to assess for any changes but too unstable to do the test. need trach and PEG. 07/05: plan for trach/peg - GS following. off pressor - on midodrine. renal function stable. intubated, but alert and can follow minor commend. discussed with daughter by phone. 07/06/2020; Dr. Márquez discussed with patient's daughter about trach but the daughter needs time to think about it. Patient was intubated and alert, FiO2 40%. 07/07/2020; patient was intubated and alert, FiO2 40%. Patient was diaphoretic, tachycardic, and EKG was done which was abnormal for me. I called adult basic studies teacher Dr Louis saw the EKG and said it is normal EKG, and the findings are abnormal. 07/08/2020; no significant change, patient is intubated and alert. 1/2: Patient continues on current management. Pulmonary recommending trach and PEG awaiting patient's decision on this. Will check intermittent labs 3: Ordered CT still pending. Patient was agitated at night. Appears to have calmed down. Will repeat labs today. 07/12: Continue supportive care, awaiting CPAP trial. discussed with pulmonary. Obtain labs today. Trach and Peg planned 07/13: Continues to current management, PLAN FOR Trach and PEG on if patient is not able to liberated from the ventilator, Continue to monitor Fever curve and repeat Sepsis work up if persistent fever The high probability of a clinically significant, sudden or life threatening deterioration of the [respiratory] system(s) required my full and direct attention, intervention and personal management. The aggregate critical care time was [31] minutes. This time is in addition to time spent performing reported procedures but includes the following: [x] Data Review and interpretation [x] Patient assessment and monitoring of vital signs [x] Documentation [x] Medication orders and management History Interval history: PT seen and examined. Remains on full ventilatory support, CPAP trial, follows command. Fever noted today Hospitalist Physical - Physical exam Narrative exam: VITAL SIGNS: Reviewed. Exam limited due to global pandemic PPE GENERAL: AWAKE, FOLLOWS COMMAND HEAD: No signs of head trauma. MOUTH: Oropharynx is normal. NECK: No adenopathy, no JVD. CHEST: Chest with diminished breath sounds bilaterally. No wheezes, rales, or rhonchi. CARDIAC: normal S1 and S2, without murmurs, gallops, or rubs. ABDOMEN: Slightly distended, bowel sounds hypoactive NEUROLOGIC EXAM: Sedated and intubated - Constitutional Vitals: Temp Pulse Resp BP Pulse Ox 102.1 F H 125 H 33 H 146/76 95 07/13/20 08:00 07/13/20 08:31 07/13/20 08:31 07/13/20 08:31 07/13/20 08:31 General appearance: Present: no acute distress, mild distress, well-nourished HEART Score - HEART Score Troponin: Troponin T 0.015 ng/mL (0.00-0.029) 07/07/20 10:00 Results - Labs CBC & Chem 7: 07/11/20 08:13 07/11/20 08:13 Labs: Laboratory Last Values WBC 11.9 K/mm3 (4.5-11.0) H 07/11/20 08:13 RBC 3.13 M/mm3 (3.65-5.03) L 07/11/20 08:13 Hgb 10.2 gm/dl (11.8-15.2) L 07/11/20 08:13 Hct 31.2 % (35.5-45.6) L 07/11/20 08:13 MCV 100 fl (84-94) H 07/11/20 08:13 MCH 33 pg (28-32) H 07/11/20 08:13 MCHC 33 % (32-34) 07/11/20 08:13 RDW 16.4 % (13.2-15.2) H 07/11/20 08:13 Plt Count 296 K/mm3 (140-440) 07/11/20 08:13 Lymph % (Auto) 17.5 % (13.4-35.0) 07/11/20 08:13 [place] % (Auto) 9.3 % (0.0-7.3) H 07/11/20 08:13 Eos % (Auto) 0.3 % (0.0-4.3) 07/11/20 08:13 Baso % (Auto) 0.2 % (0.0-1.8) 07/11/20 08:13 Lymph # (Auto) 2.1 K/mm3 (1.2-5.4) 07/11/20 08:13 [place] # (Auto) 1.1 K/mm3 (0.0-0.8) H 07/11/20 08:13 Eos # (Auto) 0.0 K/mm3 (0.0-0.4) 07/11/20 08:13 Baso # (Auto) 0.0 K/mm3 (0.0-0.1) 07/11/20 08:13 Add Manual Diff Complete 07/08/20 04:58 Total Counted 100 07/08/20 04:58 Seg Neutrophils % 72.7 % (40.0-70.0) H 07/11/20 08:13 Seg Neuts % (Manual) 93.0 % (40.0-70.0) H 07/08/20 04:58 Band Neutrophils % 2.0 % 07/01/20 06:41 Lymphocytes % (Manual) 3.0 % (13.4-35.0) L 07/08/20 04:58 Reactive Lymphs % (Man) 0 % 06/15/20 Unknown Monocytes % (Manual) 4.0 % (0.0-7.3) 07/08/20 04:58 Eosinophils % (Manual) 3.0 % (0.0-4.3) 07/01/20 06:41 Basophils % (Manual) 0 % (0.0-1.8) 06/15/20 Unknown Metamyelocytes % 1.0 % 06/28/20 06:35 Myelocytes % 0 % 06/15/20 Unknown Promyelocytes % 0 % 06/15/20 Unknown Blast Cells % 0 % 06/15/20 Unknown Nucleated RBC % Not Reportable 07/08/20 04:58 Seg Neutrophils # 8.7 K/mm3 (1.8-7.7) H 07/11/20 08:13 Seg Neutrophils # Man 19.5 K/mm3 (1.8-7.7) H 07/08/20 04:58 Band Neutrophils # 0.0 K/mm3 07/08/20 04:58 Lymphocytes # (Manual) 0.6 K/mm3 (1.2-5.4) L 07/08/20 04:58 Abs React Lymphs (Man) 0.0 K/mm3 07/08/20 04:58 Monocytes # (Manual) 0.8 K/mm3 (0.0-0.8) 07/08/20 04:58 Eosinophils # (Manual) 0.0 K/mm3 (0.0-0.4) 07/08/20 04:58 Basophils # (Manual) 0.0 K/mm3 (0.0-0.1) 07/08/20 04:58 Metamyelocytes # 0.0 K/mm3 07/08/20 04:58 Myelocytes # 0.0 K/mm3 07/08/20 04:58 Promyelocytes # 0.0 K/mm3 07/08/20 04:58 Blast Cells # 0.0 K/mm3 07/08/20 04:58 WBC Morphology Not Reportable 07/08/20 04:58 Hypersegmented Neuts Not Reportable 07/08/20 04:58 Hyposegmented Neuts Not Reportable 07/08/20 04:58 Hypogranular Neuts Not Reportable 07/08/20 04:58 Smudge Cells Not Reportable 07/08/20 04:58 Toxic Granulation Not Reportable 07/08/20 04:58 Toxic Vacuolation Not Reportable 07/08/20 04:58 Dohle Bodies Not Reportable 07/08/20 04:58 Pelger-Huet Anomaly Not Reportable 07/08/20 04:58 Jason Rods Not Reportable 07/08/20 04:58 Platelet Estimate Consistent w auto 07/08/20 04:58 Clumped Platelets Not Reportable 07/08/20 04:58 Plt Clumps, EDTA Not Reportable 07/08/20 04:58 Large Platelets Not Reportable 07/08/20 04:58 Giant Platelets Not Reportable 07/08/20 04:58 Platelet Satelliting Not Reportable 07/08/20 04:58 Plt Morphology Comment Not Reportable 07/08/20 04:58 RBC Morphology Normal 07/08/20 04:58 Dimorphic RBCs Not Reportable 07/08/20 04:58 Polychromasia Not Reportable 07/08/20 04:58 Hypochromasia Not Reportable 07/08/20 04:58 Poikilocytosis Not Reportable 07/08/20 04:58 Anisocytosis Not Reportable 07/08/20 04:58 Microcytosis Not Reportable 07/08/20 04:58 Macrocytosis Not Reportable 07/08/20 04:58 Spherocytes Not Reportable 07/08/20 04:58 Pappenheimer Bodies Not Reportable 07/08/20 04:58 Sickle Cells Not Reportable 07/08/20 04:58 Target Cells Not Reportable 07/08/20 04:58 Stomatocytes Few 06/14/20 07:15 Tear Drop Cells Not Reportable 07/08/20 04:58 Ovalocytes Not Reportable 07/08/20 04:58 Helmet Cells Not Reportable 07/08/20 04:58 [place] Bodies Not Reportable 07/08/20 04:58 [place] Rings Not Reportable 07/08/20 04:58 [place] Cells Not Reportable 07/08/20 04:58 Bite Cells Not Reportable 07/08/20 04:58 Crenated Cell Not Reportable 07/08/20 04:58 Elliptocytes Not Reportable 07/08/20 04:58 Acanthocytes (Spur) Not Reportable 07/08/20 04:58 Rouleaux Not Reportable 07/08/20 04:58 Hemoglobin C Crystals Not Reportable 07/08/20 04:58 Schistocytes Not Reportable 07/08/20 04:58 Malaria parasites Not Reportable 07/08/20 04:58 Josue Bodies Not Reportable 07/08/20 04:58 Hem Pathologist Commnt No 07/08/20 04:58 PT 11.8 Sec. (12.2-14.9) L 06/22/20 14:29 INR 0.88 (0.87-1.13) 06/22/20 14:29 APTT 23.5 Sec. (24.2-36.6) L 06/22/20 14:29 D-Dimer 1887.82 ng/mlDDU (0-234) H 05/20/20 08:16 Heparin Anti-Xa Level 0.37 U.I./ml (0.3-0.7) 07/02/20 16:08 ABG pH 7.449 (7.320-7.450) 07/11/20 18:36 POC ABG pCO2 47.7 mmHg (32.0-48.0) 07/11/20 18:36 ABG pCO2 53.1 mm Hg 07/08/20 Unknown POC ABG pO2 70.9 mmHg (83-108) L 07/11/20 18:36 ABG pO2 75.3 mm Hg (80.0-90.0) L 07/08/20 Unknown POC ABG HCO3 32.3 07/11/20 18:36 ABG HCO3 34.3 mmol/L (20.0-26.0) H 07/08/20 Unknown ABG O2 Saturation 96.5 % (95.0-99.0) 07/08/20 Unknown ABG O2 Content 13.5 (0.0-44) 07/08/20 Unknown POC ABG Base Excess 7.4 07/11/20 18:36 ABG Base Excess 8.7 mmol/L (-2.0-3.0) H 07/08/20 Unknown ABG Hemoglobin 10.8 (12.0-17.5) L 07/11/20 18:36 ABG Oxyhemoglobin 92.5 (94-98) L 07/11/20 18:36 ABG Carboxyhemoglobin 2.4 % (0.0-5.0) 07/08/20 Unknown ABG Methemoglobin 0.3 (0.0-1.5) 07/11/20 18:36 ABG Sodium 131.8 mmol/L (136.0-145.0) L 07/11/20 18:36 ABG Potassium 3.2 mmol/L (3.40-4.50) L 07/11/20 18:36 ABG Chloride 91.0 mmol/L (98-107) L 07/11/20 18:36 ABG Glucose 181 mg/dL (65-95) H 07/11/20 18:36 Oxyhemoglobin 93.7 % (95.0-99.0) L 07/08/20 Unknown Carboxyhemoglobin 1.1 (0.5-1.5) 07/11/20 18:36 FiO2 40.0 07/11/20 18:36 Sodium 135 mmol/L (137-145) L 07/11/20 08:13 Potassium 3.7 mmol/L (3.6-5.0) 07/11/20 08:13 Chloride 92.8 mmol/L (98-107) L 07/11/20 08:13 Carbon Dioxide 38 mmol/L (22-30) H 07/11/20 08:13 Anion Gap 8 mmol/L 07/11/20 08:13 BUN 14 mg/dL (9-20) 07/11/20 08:13 Creatinine 0.2 mg/dL (0.8-1.3) L 07/11/20 08:13 Estimated GFR > 60 ml/min 07/11/20 08:13 BUN/Creatinine Ratio 70 % 07/11/20 08:13 Glucose 132 mg/dL (75-100) H 07/11/20 08:13 POC Glucose 86 mg/dL (70-105) 07/13/20 07:55 Lactic Acid 1.80 mmol/L (0.7-2.0) 05/09/20 Unknown Calcium 9.2 mg/dL (8.4-10.2) 07/11/20 08:13 Phosphorus 3.10 mg/dL (2.5-4.5) 06/15/20 04:00 Magnesium 1.70 mg/dL (1.7-2.3) 06/30/20 07:00 Ferritin 1496.0 ng/mL (30.0-300.0) H 06/14/20 11:50 Total Bilirubin 0.60 mg/dL (0.1-1.2) 06/30/20 07:00 Direct Bilirubin 0.6 mg/dL (0-0.2) H 05/11/20 07:30 Indirect Bilirubin 0.9 mg/dL 05/11/20 07:30 AST 21 units/L (5-40) 06/30/20 07:00 ALT 30 units/L (7-56) 06/30/20 07:00 Alkaline Phosphatase 81 units/L (35-129) 06/30/20 07:00 Lactate Dehydrogenase 705 units/L (91-180) H 05/20/20 08:16 Troponin T 0.015 ng/mL (0.00-0.029) 07/07/20 10:00 C-Reactive Protein 3.10 mg/dL (0.00-1.30) H 05/20/20 08:16 Total Protein 6.3 g/dL (6.3-8.2) 06/30/20 07:00 Albumin 2.8 g/dL (3.9-5) L 06/30/20 07:00 Albumin/Globulin Ratio 0.8 % 06/30/20 07:00 Triglycerides 452 mg/dL (2-149) H 06/30/20 07:00 Lipase 86 units/L (13-60) H 06/29/20 09:36 Procalcitonin 0.94 ng/mL (<0.15) 06/14/20 11:50 Arterial Blood Glucose 181 mg/dL (65-95) H 07/11/20 18:36 Arterial Blood Ionized Calcium 4.8 mg/dL (4.6-5.3) 07/11/20 18:36 Urine Color Fauzia (Yellow) 05/10/20 Unknown Urine Turbidity Clear (Clear) 05/10/20 Unknown Urine pH 5.0 (5.0-7.0) 05/10/20 Unknown Ur Specific [place] 1.019 (1.003-1.030) 05/10/20 Unknown Urine Protein 100 mg/dl mg/dL (Negative) 05/10/20 Unknown Urine Glucose (UA) Neg mg/dL (Negative) 05/10/20 Unknown Urine Ketones Neg mg/dL (Negative) 05/10/20 Unknown Urine Blood Lg (Negative) 05/10/20 Unknown Urine Nitrite Neg (Negative) 05/10/20 Unknown Urine Bilirubin Neg (Negative) 05/10/20 Unknown Urine Urobilinogen 2.0 mg/dL (<2.0) 05/10/20 Unknown Ur Leukocyte Esterase Neg (Negative) 05/10/20 Unknown Urine WBC (Auto) 11.0 /HPF (0.0-6.0) H 05/10/20 Unknown Urine RBC (Auto) 2.0 /HPF (0.0-6.0) 05/10/20 Unknown U Epithel Cells (Auto) 1.0 /HPF (0-13.0) 05/10/20 Unknown Urine Bacteria (Auto) 1+ /HPF (Negative) 05/10/20 Unknown Urine Mucus Few /HPF 05/10/20 Unknown Plasma/Serum Alcohol < 0.01 % (0-0.07) 05/09/20 14:20 Coronavirus (PCR) Negative (Negative) 06/30/20 10:28 Hep B Core Total Ab Nonreactive (Nonreactive) 07/09/20 Unknown SARS-CoV-2 IgG Ab Reactive (NonReactive) A 05/11/20 07:30 Blood Type B POSITIVE 06/21/20 14:18 Antibody Screen Negative 06/21/20 14:18 Crossmatch See Detail 06/21/20 14:18 - Diagnostic Impressions Diagnostic Impressions: Echocardiogram 05/20/20 13:02 Transthoracic Echocardiogram Indication: CHF BP: 97/73 Conclusions *The study quality is technically very difficult and limited. *The left ventricular chamber size, wall thickness and systolic function are within normal limits. There are no wall motion abnormalities observed. Ejection fraction is normal. *The estimated ejection fraction is 60-65%. *The pericardium appears normal. Findings Procedure Info: The study quality is technically difficult. Left Ventricle: The left ventricular chamber size, wall thickness and systolic function are within normal limits. There are no wall motion abnormalities observed. Ejection fraction is normal. The estimated ejection fraction is 60-65%. Abnormal left ventricular diastolic filling is observed, consistent with impaired relaxation. Left Atrium: The left atrium is normal in size with no visual thrombus identified. Right Ventricle: The right ventricle is not well visualized. Right Atrium: The right atrium is not well visualized. Aortic Valve: The aortic valve is trileaflet. The leaflets are thin with normal excursion. There is no aortic stenosis or regurgitation present. Mitral Valve: The mitral valve appears normal in structure and function. Tricuspid Valve: The tricuspid valve appears normal in structure and function. Unable to estimate the right ventricular systolic pressure. Pulmonic Valve: The pulmonic valve is not well visualized. There is no evidence of pulmonic regurgitation. There is no pulmonic stenosis. Pericardium: The pericardium appears normal. Pulmonary Artery: The main pulmonary artery is not well visualized. Venous: The inferior vena cava appears normal in size. Measurements Chambers 2D Name Value Normal Range IVSd (2D) 0.83 cm (0.6 - 1.1) LVPWd (2D) 0.83 cm (0.6 - 1.1) LVIDd (2D) 3.88 cm (3.7 - 5.6) LVIDs (2D) 2.46 cm (2 - 3.8) LV FS (2D) 36.52 % - EF Teichholz (2D) 66.97 % - Ao root diameter (2D) 3.47 cm (2 - 3.7) Volumes/Mass Name Value Normal Range LA ESV SP 4CH (A/L) 22.4 ml - LA ESV SP 2CH (A/L) 22.89 ml - LA ESV BP (A/L) 23.06 ml - LA ESV SP 4CH (MOD) 21.09 ml - LA ESV SP 2CH (MOD) 22.44 ml - Diastolic/Systolic Function Name Value Normal Range MV E-wave Vmax 0.48 m/sec - MV deceleration time 156.3 msec - MV A-wave Vmax 0.59 m/sec - MV E:A ratio 0.81 ratio - Aortic Valve Name Value Normal Range AV Vmax 0.97 m/sec - AV VTI 14.49 cm - AV peak gradient 3.73 mmHg - AV mean gradient 1.89 mmHg - LVOT diameter 2.09 cm - LVOT Vmax 0.72 m/sec - LVOT VTI 10.21 cm - LVOT peak gradient 2.05 mmHg - LVOT mean gradient 1.03 mmHg - SV LVOT 35.17 ml - INNA (continuity Vmax) 2.55 cm2 - INNA (continuity VTI) 2.43 cm2 - Tricuspid Valve Name Value Normal Range TV E-wave Vmax 0.37 m/sec - Pulmonic Valve/Qp:Qs Name Value Normal Range PV Vmax 0.72 m/sec - PV peak gradient 2.06 mmHg - RVOT Vmax 0.85 m/sec - RVOT VTI 9.89 cm - RVOT peak gradient 2.9 mmHg - PV acceleration time 72.31 msec - Cantor/IV: Voiding Method Condom Catheter IV Catheter Type [Right Upper PICC Line arm] IV Catheter Type [Right CVL Internal Jugular] IV Catheter Type [Right Peripheral IV Forearm] IV Catheter Type [Left Forearm Peripheral IV ] IV Catheter Type [Left Wrist] INT / Saline Lock IV Catheter Type [Right Hand] INT / Saline Lock IV Catheter Type [Left Hand] INT / Saline Lock IV Catheter Type [Left Peripheral IV Antecubital] Active Medications - Current Medications Current Medications: Generic Name Dose Route Start Last Admin Trade Name Freq PRN Reason Stop Dose Admin Acetaminophen 650 mg 06/14/20 10:07 06/21/20 20:21 Tylenol FEEDTUBE 650 mg Q4H PRN Administration Pain, Mild (1-3) Alprazolam 0.25 mg 05/20/20 17:53 07/08/20 06:24 Alprazolam 0.25 Mg Tab PO 0.25 mg Q8H PRN Administration Anxiety Lipase/Protease/Amylase 1 each 05/22/20 13:01 Lipase 10,500/Protease 25,000/Amylase 43,750 (Units) Dr Newell FEEDTUBE PRN PRN For Clogged Feeding Tube Bisacodyl 10 mg 06/26/20 22:00 07/12/20 22:08 Bisacodyl 10 Mg Rect Supp NJ Not Given BID DESIRE Docusate Sodium 100 mg 05/28/20 14:00 07/12/20 22:08 Docusate Sodium 100 Mg/10 Ml Oral Liqd PO Not Given BID DESIRE Enoxaparin Sodium 80 mg 07/07/20 23:00 07/12/20 22:07 Enoxaparin 80 Mg/0.8 Ml Inj SUB-Q 80 mg Q12HR DESIRE Administration Enoxaparin Sodium 30 mg 07/07/20 23:00 07/12/20 22:07 Enoxaparin 30 Mg/0.3 Ml Inj SUB-Q 30 mg Q12HR DESIRE Administration Fentanyl 50 mcg 06/22/20 09:48 07/07/20 12:19 Fentanyl 100 Mcg/2 Ml Inj IV 50 mcg Q10MIN PRN Administration ANALGESIA Folic Acid 1 mg 05/09/20 15:36 07/12/20 09:22 Folic Acid 1 Mg Tab PO 1 mg QDAY DESIRE Administration Hydrophilic Ointment 1 applic 05/21/20 20:33 Lip Therapy Vaseline TP Q2HR PRN Dry Lips Midazolam HCl 100 mg/ Sodium 100 mls @ 2 mls/hr 06/02/20 14:00 07/12/20 18:50 Chloride IV 0 mg/hr TITR DESIRE 0 mls/hr Titration Protocol 2 MG/HR Norepinephrine 4 mg in 250 mls @ 7.5 mls/hr 06/04/20 16:00 07/12/20 09:46 Levophed Drip 4 Mg/Ns 250 Ml IV Infused TITR DESIRE Titration Protocol 2 MCG/MIN Fentanyl Citrate 2,000 mcg in 100 mls @ 5.32 mls/hr 06/09/20 14:00 07/12/20 18:49 Fentanyl Drip Premix IV 0 mcg/kg/hr TITR DESIRE 0 mls/hr Titration Protocol 1 MCG/KG/HR Vasopressin 20 unit/ Sodium 101 mls @ 9.09 mls/hr 06/09/20 18:00 Chloride IV TITR DESIRE Protocol 0.03 UNITS/MIN Dexmedetomidine HCl 1,000 mcg/ 260 mls @ 5.668 mls/hr 07/05/20 08:30 07/13/20 02:04 Sodium Chloride IV 1 mcg/kg/hr TITRATE DESIRE 28.34 mls/hr Administration Protocol 0.2 MCG/KG/HR Insulin Glargine 30 units 06/30/20 22:00 07/12/20 22:07 Insulin Glargine 100 Units/Ml SUB-Q 30 units QHS DESIRE Administration Insulin Glargine 5 units 07/05/20 14:00 07/12/20 09:21 Insulin Glargine 100 Units/Ml SUB-Q 5 units DAILY DESIRE Administration Insulin Human Lispro 0 unit 05/29/20 14:00 07/13/20 06:18 Insulin Lispro 100 Unit/Ml Vial 3 Ml SUB-Q Not Given Q6H [facility] Protocol Lansoprazole 30 mg 06/28/20 10:00 07/12/20 09:21 Lansoprazole 30 Mg Solutab FEEDTUBE 30 mg QDAY DESIRE Administration Lorazepam 1 mg 07/04/20 01:10 07/12/20 22:07 Lorazepam 2 Mg/Ml Vial IV 1 mg Q1HR PRN Administration agitation Methylprednisolone Sodium Succinate 40 mg 07/13/20 10:00 Methylprednisolone Sod Succinate 40 Mg/1 Ml Inj IV Q24HR DESIRE Metoprolol Tartrate 5 mg 07/02/20 17:17 07/08/20 14:38 Metoprolol Tartrate 5 Mg/5 Ml Inj IV 5 mg Q6HR PRN Administration Tachyarrhythmias Midodrine 10 mg 06/30/20 16:00 07/12/20 16:39 Midodrine 5 Mg Tab PO 10 mg TID@0800,1200,1600 DESIRE Administration Multi-Ingred Cream/Lotion/Oil/Oint 1 applic 05/21/20 20:33 Mineral Oil/Petrolatum, White Ophth Oint 3.5 Gm OU Q4HR PRN Dry Eye(s) Phenobarbital 32.4 mg 07/04/20 22:00 07/12/20 22:08 Phenobarbital 32.4 Mg Tab PO 32.4 mg BID DESIRE Administration Quetiapine Fumarate 100 mg 07/02/20 23:15 07/12/20 22:08 Quetiapine 100 Mg Tab PO 100 mg TID DESIRE Administration Quetiapine Fumarate 200 mg 07/02/20 23:00 07/12/20 22:08 Quetiapine 200 Mg Tab PO 200 mg TID DESIRE Administration Senna 17.2 mg 06/07/20 10:00 07/12/20 22:10 Sennosides 8.6 Mg Tab PO Not Given BID DESIRE Simple Syrup 15 ml 05/22/20 13:01 Simple Syrup 15 Ml FEEDTUBE PRN PRN Hypoglycemia Simple Syrup 30 ml 05/22/20 13:01 Simple Syrup 15 Ml FEEDTUBE PRN PRN Hypoglycemia Sodium Bicarbonate 325 mg 05/22/20 13:01 Sodium Bicarbonate 325 Mg Tab FEEDTUBE PRN PRN For Clogged Feeding Tube Sodium Chloride 10 ml 05/09/20 22:00 07/13/20 06:18 Sodium Chloride 0.9% 10 Ml Flush Syringe IV Not Given BID [facility] Nutrition/Malnutrition Assess - Dietary Evaluation Nutrition/Malnutrition Findings: Nutrition Notes Start: 05/17/20 14:10 Freq: Status: Active Protocol: Document 07/07/20 13:16 (Rec: 07/07/20 13:20 [id number]) Nutrition Notes Initial or Follow up Reassessment Current Diagnosis Sepsis,Respiratory Failure Other Pertinent Diagnosis Bilat pneu, COVID-19 (+), EtOH dependence Current Diet Vital HP at 65 ml/hr (goal rate) Labs/Tests Na 135 K 3.4 BG 240 Pertinent Medications Solumedrol Humalog Levophed Height 6 ft Weight 110 kg [place] Body Weight (kg) 80.90 BMI 32.8 Weight Status Obese Subjective/Other Information FU for TF tolerance. Per RN, pt tolerating TF at goal. Percent of energy/protein needs met: 87%/84% Burn Absent Trauma Absent GI Symptoms None Current % PO Negligible Minimum of two criteria No physical signs of malnutrition #1 Nutrition Diagnosis Inadequate oral intake Diagnosis Progress(for reassessment Continues documentation) Is patient on ventilator? Yes Is Patient Ambulatory and/or Out of Bed No REE-([place]-confined to bed) 2395.176 Kcal/Kg value to use for calculation 16 Approximate Energy Requirements Using 1760 kcal/Kg Calculation Used for Recommendations Kcal/kg Additional Notes Pro needs >2g/kg IBW: at least 162g/day Fluid needs 1ml/kcal Nutrition Intervention Change Diet Order: Continue TF Nutrition Support: Vital HP at 65ml/hr with 50ml water flush q4h. Kcal 1,560 Protein (gm) 136 Fluid (mL) 1,304 Goal #1 TF tolerance Goal #2 TF (at goal rate) to meet at least 75% energy and pro needs Anticipated Discharge Needs: Unable to identify at this time Follow-Up By: 07/14/20 Additional Comments F/U TF tolerance
[2020-07-13] MEDS: QUEtiapine 200 MG TAB PO SCH ×3 (08:59→21:35)
[2020-07-13] MEDS: QUEtiapine 100 MG TAB PO SCH ×3 (08:59→21:34)
[2020-07-13] MEDS: MIDODRINE 5 MG TAB PO SCH ×3 (08:59→14:46)
[2020-07-13] MEDS: ACETAMINOPHEN 325 MG/10.15 ML ORAL LIQD UNIT DOSE FEEDTUBE PRN (08:59)
[2020-07-13] MEDS: INSULIN GLARGINE 100 UNITS/ML SUB-Q SCH ×2 (09:09→21:35)
[2020-07-13] MEDS: ENOXAPARIN 30 MG/0.3 ML INJ SUB-Q SCH ×2 (09:10→21:35)
[2020-07-13] MEDS: methylPREDNISolone Sod Succinate 40 MG/1 ML INJ IV SCH (09:10)
[2020-07-13] MEDS: ENOXAPARIN 80 MG/0.8 ML INJ SUB-Q SCH ×2 (09:10→21:35)
[2020-07-13] MEDS: DOCUSATE SODIUM 100 MG/10 ML ORAL LIQD PO SCH ×2 (09:10→21:36)
[2020-07-13] MEDS: PHENobarbital 32.4 MG TAB PO SCH ×2 (09:11→21:34)
[2020-07-13] MEDS: SENNOSIDES 8.6 MG TAB PO SCH ×2 (09:11→21:36)
[2020-07-13] MEDS: LANSOPRAZOLE 30 MG SOLUTAB FEEDTUBE SCH (09:11)
[2020-07-13] MEDS: FOLIC ACID 1 MG TAB PO SCH (09:11)
[2020-07-13] MEDS: NORepinephrine/NS 4 MG-250 ML 4 MG/250 ML BAG IV SCH (13:02)
--- NOTE | 2020-07-13 14:01 | Progress Note ---
Assessment and Plan Acute hypoxemic respiratory failure due to COVID-19 Severe Sepsis Bilateral pneumonia Acute kidney injury (SEN) with acute tubular necrosis (ATN) Alcohol dependence Elevated liver function tests - get ABG imer - extubate if acceptable - BIPAP scheduled qhs with prn daytime use post extubation - place NGT - PLUMBER PIPE FITTING evaluation post extubation - continue to wean Levophed for target MAP > 65 mmHg - continue care as below otherwise; - awaiting tracheostomy (COVID repeat negative) - continue to wean supplemental oxygen for target O2 sat's > 92% acutely - continue Seroquel at 300 mg po tid - continue Precedex - prn 12 lead EKG to monitor QT - continue midodrine re: hypotension - keep peep at 8 - continue bid protonix - continue bowel regimen - metoprolol 5 mg IV q6h prn pulse > 130/min - tracheostomy placement once oxygenation better / more hemodynamically stable - he will need a tracheostomy once numbers better - VAP bundle addressed - continue lung protective strategies - continue bronchodilators with pulmonary hygiene per RT - wean per pulmonary driven protocols otherwise - accuchecks with glycemic control per SSI (While critically ill target blood glucose of 140-180 mg/dL; avoid hypoglycemia) - sedation prn for target RASS -1 to -2 - continue enteral nutritional support at goal rate as tolerated - continue airborne and contact isolation - follow repeat COVID-19 testing - continue Zinc & Vit C supplementaion - continue systemic steroids for Asthma / severe COVID infection - Prone positioning as tolerated - continue empiric full dose anticoagulation re: elevated d-dimers / hypercoagulable state - NOT a candidate for COVID convalescent plasma - continue systemic steroids X >/= 10 days - completed remdesivir dosing (total 5 days) - empiric AB's coverage per ID rec's - accuchecks with glycemic control per SSI (While critically ill target blood glucose of 140-180 mg/dL; avoid hypoglycemia) - avoid nephrotoxins, renally dose all medications - continue to avoid benzodiazepine's, reduce the possibility of delirium - continue wound care per RN / WCN - prn analgesia per CPOT score - Maintenance of sleep-wake cycle, avoid delirium - continue to avoid benzodiazepine's, reduce the possibility of delirium - aspiration precautions - G.I. & VTE prophylaxis - PT/OT/ROM exercises - continue mobility protocols for pressure ulcer prophylaxis - Monitor hemodynamics closely - continue other care per attending / other consultants - discharge planning ongoing concurrently .... Re-evaluate in am & prn CONDITION: CRITICAL PROGNOSIS: GUARDED CODE STATUS: FULL CODE The high probability of a clinically significant, sudden or life-threatening deterioration of the [respiratory, cardiovascular, hematologic & neurologic] system(s) required my full and direct attention, intervention and personal management. The aggregate critical care time was [37] minutes without overlap. Time includes spent on; [x] Data Review and interpretation [x] Patient assessment and monitoring of vital signs [x] Documentation [x] Medication orders and management Subjective Date of service: 07/13/20 Principal diagnosis: Ac hypoxemic resp failure; COVID-19; Severe Sepsis; Shaggy PNA; Alcohol Abuse Interval history: Patient is seen today for: Acute hypoxemic respiratory failure due to COVID-19; Severe Sepsis; Bilateral pneumonia; Alcohol dependence; Elevated liver function tests Seen and examined at bedside; 24hour events reviewed; nursing and respiratory care staff consulted; no adverse overnight events reported to me; resting in bed; remains on MVS; refused tracheostomy and indicated good comprehension; No N/V/F/C; tolerating SBT today also Objective Vital Signs - 12hr 07/13/20 07/13/20 07/13/20 02:01 02:31 03:00 Temperature Pulse Rate 143 H 140 H 138 H Pulse Rate [ From Monitor] Respiratory 31 H 30 H 33 H Rate Blood Pressure 133/93 137/77 129/81 O2 Sat by Pulse 96 98 94 Oximetry 07/13/20 07/13/20 07/13/20 03:31 04:00 04:31 Temperature 99.8 F H Pulse Rate 137 H 135 H 150 H Pulse Rate [ From Monitor] Respiratory 32 H 17 34 H Rate Blood Pressure 146/76 146/76 146/76 O2 Sat by Pulse 95 95 92 Oximetry 07/13/20 07/13/20 07/13/20 04:32 05:00 05:01 Temperature Pulse Rate 139 H 144 H Pulse Rate [ 140 H From Monitor] Respiratory 4 L 30 H 39 H Rate Blood Pressure 131/69 146/76 O2 Sat by Pulse 94 94 94 Oximetry 07/13/20 07/13/20 07/13/20 05:31 06:01 06:31 Temperature Pulse Rate 145 H 136 H 131 H Pulse Rate [ From Monitor] Respiratory 25 H 38 H 34 H Rate Blood Pressure 146/76 146/76 146/76 O2 Sat by Pulse 93 96 96 Oximetry 07/13/20 07/13/20 07/13/20 07:01 07:31 08:00 Temperature 102.1 F H Pulse Rate 126 H 125 H 119 H Pulse Rate [ 122 H From Monitor] Respiratory 21 33 H 33 H Rate Blood Pressure 146/76 146/76 O2 Sat by Pulse 93 95 96 Oximetry 07/13/20 07/13/20 07/13/20 08:01 08:05 08:31 Temperature Pulse Rate 124 H 125 H 125 H Pulse Rate [ From Monitor] Respiratory 32 H 33 H 33 H Rate Blood Pressure 146/76 146/76 146/76 O2 Sat by Pulse 96 95 95 Oximetry 07/13/20 07/13/20 07/13/20 09:01 09:31 10:01 Temperature Pulse Rate 122 H 122 H 135 H Pulse Rate [ From Monitor] Respiratory 33 H 27 H 32 H Rate Blood Pressure 146/76 146/76 96/57 O2 Sat by Pulse 96 95 91 Oximetry 07/13/20 07/13/20 07/13/20 10:31 11:00 11:21 Temperature Pulse Rate 128 H 126 H 122 H Pulse Rate [ From Monitor] Respiratory 35 H 31 H 32 H Rate Blood Pressure 89/48 114/61 146/76 O2 Sat by Pulse 91 93 95 Oximetry 07/13/20 07/13/20 07/13/20 11:31 12:00 12:30 Temperature 98.2 F Pulse Rate 126 H 118 H 116 H Pulse Rate [ 117 H From Monitor] Respiratory 34 H 23 21 Rate Blood Pressure 111/69 128/63 117/71 O2 Sat by Pulse 93 97 94 Oximetry 07/13/20 07/13/20 13:00 13:31 Temperature Pulse Rate 119 H 120 H Pulse Rate [ From Monitor] Respiratory 30 H 27 H Rate Blood Pressure 124/67 110/74 O2 Sat by Pulse 93 92 Oximetry Constitutional: no acute distress, other (middle aged obese male with mildly increased respiratory effort at rest on MVS) Eyes: non-icteric ENT: oropharynx moist, other (ETT 24 cm CHILO) Neck: supple, no JVD Effort: mildly labored Ascultation: Bilateral: diminished breath sounds, rhonchi (scant), other (right chest tube) Percussion: Bilateral: not dull Cardiovascular: regular rate and rhythm, other (No R/M) Gastrointestinal: normoactive bowel sounds, soft, non-tender, non-distended (protuberant), other (distended and firm) Integumentary: normal Extremities: no cyanosis, no edema, pulses normal, no ischemia or petechiae Neurologic: non-focal exam (non focal grossly; weak), pupils equal and round, CN II-XII normal Psychiatric: mood appropriate, affect normal CBC and BMP: 07/11/20 08:13 07/11/20 08:13 ABG, PT/INR, D-dimer: ABG ABG pH 7.449 (7.320-7.450) 07/11/20 18:36 POC ABG pCO2 47.7 mmHg (32.0-48.0) 07/11/20 18:36 ABG pCO2 53.1 mm Hg 07/08/20 Unknown POC ABG pO2 70.9 mmHg (83-108) L 07/11/20 18:36 ABG pO2 75.3 mm Hg (80.0-90.0) L 07/08/20 Unknown POC ABG HCO3 32.3 07/11/20 18:36 ABG O2 Saturation 96.5 % (95.0-99.0) 07/08/20 Unknown PT/INR, D-dimer PT 11.8 Sec. (12.2-14.9) L 06/22/20 14:29 INR 0.88 (0.87-1.13) 06/22/20 14:29 D-Dimer 1887.82 ng/mlDDU (0-234) H 05/20/20 08:16 Abnormal lab findings: Abnormal Labs 05/09/20 05/09/20 05/09/20 12:59 12:59 12:59 WBC 11.8 H RBC Hgb Hct MCV 96 H MCH 34 H MCHC 35 H RDW Lymph % (Auto) 6.9 L Mayes % (Auto) Lymph # (Auto) 0.8 L Mayes # (Auto) Baso # (Auto) Seg Neutrophils % 87.5 H Seg Neuts % (Manual) Lymphocytes % (Manual) Nucleated RBC % Seg Neutrophils # 10.3 H Seg Neutrophils # Man Lymphocytes # (Manual) Monocytes # (Manual) Eosinophils # (Manual) PT INR APTT D-Dimer Heparin Anti-Xa Level ABG pH POC ABG pCO2 POC ABG pO2 ABG pO2 ABG HCO3 ABG O2 Saturation ABG Base Excess ABG Hemoglobin ABG Oxyhemoglobin ABG Sodium ABG Potassium ABG Chloride ABG Glucose Oxyhemoglobin Carboxyhemoglobin Sodium 130 L Potassium 3.5 L Chloride 86.4 L Carbon Dioxide BUN 33 H Creatinine 2.3 H Glucose 156 H POC Glucose Lactic Acid Calcium Magnesium Ferritin Total Bilirubin 3.40 H Direct Bilirubin 1.7 H AST 385 H ALT 134 H Alkaline Phosphatase Lactate Dehydrogenase C-Reactive Protein Total Protein Albumin 3.0 L Triglycerides Lipase Arterial Blood Glucose Arterial Blood Ionized Calcium Urine WBC (Auto) Coronavirus (PCR) SARS-CoV-2 IgG Ab Crossmatch 05/09/20 05/09/20 05/09/20 12:59 12:59 12:59 WBC RBC Hgb Hct MCV MCH MCHC RDW Lymph % (Auto) Mayes % (Auto) Lymph # (Auto) Mayes # (Auto) Baso # (Auto) Seg Neutrophils % Seg Neuts % (Manual) Lymphocytes % (Manual) Nucleated RBC % Seg Neutrophils # Seg Neutrophils # Man Lymphocytes # (Manual) Monocytes # (Manual) Eosinophils # (Manual) PT INR APTT D-Dimer 3242.51 H Heparin Anti-Xa Level ABG pH POC ABG pCO2 POC ABG pO2 ABG pO2 ABG HCO3 ABG O2 Saturation ABG Base Excess ABG Hemoglobin ABG Oxyhemoglobin ABG Sodium ABG Potassium ABG Chloride ABG Glucose Oxyhemoglobin Carboxyhemoglobin Sodium Potassium Chloride Carbon Dioxide BUN Creatinine Glucose 158 H POC Glucose Lactic Acid 3.50 H* Calcium Magnesium Ferritin Total Bilirubin Direct Bilirubin AST ALT Alkaline Phosphatase Lactate Dehydrogenase 2166 H C-Reactive Protein 39.00 H Total Protein Albumin Triglycerides Lipase Arterial Blood Glucose Arterial Blood Ionized Calcium Urine WBC (Auto) Coronavirus (PCR) SARS-CoV-2 IgG Ab Crossmatch 05/09/20 05/09/20 05/09/20 12:59 14:20 14:20 WBC RBC Hgb Hct MCV MCH MCHC RDW Lymph % (Auto) Mayes % (Auto) Lymph # (Auto) Mayes # (Auto) Baso # (Auto) Seg Neutrophils % Seg Neuts % (Manual) Lymphocytes % (Manual) Nucleated RBC % Seg Neutrophils # Seg Neutrophils # Man Lymphocytes # (Manual) Monocytes # (Manual) Eosinophils # (Manual) PT INR APTT D-Dimer 2861.78 H Heparin Anti-Xa Level ABG pH POC ABG pCO2 POC ABG pO2 ABG pO2 ABG HCO3 ABG O2 Saturation ABG Base Excess ABG Hemoglobin ABG Oxyhemoglobin ABG Sodium ABG Potassium ABG Chloride ABG Glucose Oxyhemoglobin Carboxyhemoglobin Sodium Potassium Chloride Carbon Dioxide BUN Creatinine Glucose POC Glucose Lactic Acid 2.20 H* Calcium Magnesium Ferritin 50882.0 H Total Bilirubin Direct Bilirubin AST ALT Alkaline Phosphatase Lactate Dehydrogenase C-Reactive Protein Total Protein Albumin Triglycerides Lipase Arterial Blood Glucose Arterial Blood Ionized Calcium Urine WBC (Auto) Coronavirus (PCR) SARS-CoV-2 IgG Ab Crossmatch 05/09/20 05/09/20 05/09/20 14:20 14:20 15:56 WBC RBC Hgb Hct MCV MCH MCHC RDW Lymph % (Auto) Mayes % (Auto) Lymph # (Auto) Mayes # (Auto) Baso # (Auto) Seg Neutrophils % Seg Neuts % (Manual) Lymphocytes % (Manual) Nucleated RBC % Seg Neutrophils # Seg Neutrophils # Man Lymphocytes # (Manual) Monocytes # (Manual) Eosinophils # (Manual) PT INR APTT D-Dimer Heparin Anti-Xa Level ABG pH POC ABG pCO2 POC ABG pO2 57.3 L ABG pO2 ABG HCO3 ABG O2 Saturation ABG Base Excess ABG Hemoglobin ABG Oxyhemoglobin 86.3 L ABG Sodium 129.9 L ABG Potassium ABG Chloride ABG Glucose 146 H Oxyhemoglobin Carboxyhemoglobin Sodium Potassium Chloride Carbon Dioxide BUN Creatinine Glucose 143 H POC Glucose Lactic Acid Calcium Magnesium Ferritin 35126.0 H Total Bilirubin Direct Bilirubin AST ALT Alkaline Phosphatase Lactate Dehydrogenase 1953 H C-Reactive Protein 33.50 H Total Protein Albumin Triglycerides Lipase Arterial Blood Glucose 146 H Arterial Blood Ionized Calcium 3.9 L Urine WBC (Auto) Coronavirus (PCR) SARS-CoV-2 IgG Ab Crossmatch 05/10/20 05/10/20 05/10/20 10:32 10:32 18:50 WBC 15.4 H RBC Hgb Hct MCV 97 H MCH 33 H MCHC RDW 13.1 L Lymph % (Auto) Mayes % (Auto) Lymph # (Auto) Mayes # (Auto) Baso # (Auto) Seg Neutrophils % Seg Neuts % (Manual) 89.0 H Lymphocytes % (Manual) 8.0 L Nucleated RBC % Seg Neutrophils # Seg Neutrophils # Man 13.7 H Lymphocytes # (Manual) Monocytes # (Manual) Eosinophils # (Manual) PT INR APTT D-Dimer Heparin Anti-Xa Level ABG pH POC ABG pCO2 POC ABG pO2 ABG pO2 ABG HCO3 ABG O2 Saturation ABG Base Excess ABG Hemoglobin ABG Oxyhemoglobin ABG Sodium ABG Potassium ABG Chloride ABG Glucose Oxyhemoglobin Carboxyhemoglobin Sodium 136 L Potassium Chloride 97.4 L Carbon Dioxide BUN 37 H Creatinine 1.7 H Glucose 209 H POC Glucose Lactic Acid Calcium Magnesium Ferritin > 2000.0 H Total Bilirubin Direct Bilirubin AST ALT Alkaline Phosphatase Lactate Dehydrogenase C-Reactive Protein Total Protein Albumin Triglycerides Lipase Arterial Blood Glucose Arterial Blood Ionized Calcium Urine WBC (Auto) Coronavirus (PCR) SARS-CoV-2 IgG Ab Crossmatch 05/10/20 05/10/20 05/10/20 18:50 19:00 Unknown WBC RBC Hgb Hct MCV MCH MCHC RDW Lymph % (Auto) Mayes % (Auto) Lymph # (Auto) Mayes # (Auto) Baso # (Auto) Seg Neutrophils % Seg Neuts % (Manual) Lymphocytes % (Manual) Nucleated RBC % Seg Neutrophils # Seg Neutrophils # Man Lymphocytes # (Manual) Monocytes # (Manual) Eosinophils # (Manual) PT INR APTT D-Dimer > 54366 H Heparin Anti-Xa Level ABG pH POC ABG pCO2 POC ABG pO2 ABG pO2 ABG HCO3 ABG O2 Saturation ABG Base Excess ABG Hemoglobin ABG Oxyhemoglobin ABG Sodium ABG Potassium ABG Chloride ABG Glucose Oxyhemoglobin Carboxyhemoglobin Sodium Potassium Chloride Carbon Dioxide BUN Creatinine Glucose POC Glucose Lactic Acid Calcium Magnesium Ferritin Total Bilirubin Direct Bilirubin AST ALT Alkaline Phosphatase Lactate Dehydrogenase 1879 H C-Reactive Protein 24.80 H Total Protein Albumin Triglycerides Lipase Arterial Blood Glucose Arterial Blood Ionized Calcium Urine WBC (Auto) 11.0 H Coronavirus (PCR) SARS-CoV-2 IgG Ab Crossmatch 05/10/20 05/11/20 05/11/20 Unknown 07:30 07:30 WBC RBC Hgb Hct MCV MCH MCHC RDW Lymph % (Auto) Mayes % (Auto) Lymph # (Auto) Mayes # (Auto) Baso # (Auto) Seg Neutrophils % Seg Neuts % (Manual) Lymphocytes % (Manual) Nucleated RBC % Seg Neutrophils # Seg Neutrophils # Man Lymphocytes # (Manual) Monocytes # (Manual) Eosinophils # (Manual) PT INR APTT D-Dimer > 2000 H Heparin Anti-Xa Level ABG pH POC ABG pCO2 POC ABG pO2 ABG pO2 ABG HCO3 ABG O2 Saturation ABG Base Excess ABG Hemoglobin ABG Oxyhemoglobin ABG Sodium ABG Potassium ABG Chloride ABG Glucose Oxyhemoglobin Carboxyhemoglobin Sodium Potassium Chloride 96.3 L Carbon Dioxide BUN 36 H Creatinine Glucose 161 H POC Glucose Lactic Acid Calcium 8.3 L Magnesium Ferritin Total Bilirubin 1.50 H Direct Bilirubin 0.6 H AST 178 H ALT 111 H Alkaline Phosphatase Lactate Dehydrogenase C-Reactive Protein Total Protein Albumin 3.0 L Triglycerides Lipase Arterial Blood Glucose Arterial Blood Ionized Calcium Urine WBC (Auto) Coronavirus (PCR) Positive A SARS-CoV-2 IgG Ab Crossmatch 05/11/20 05/11/20 05/11/20 07:30 07:30 07:30 WBC RBC Hgb Hct MCV MCH MCHC RDW Lymph % (Auto) Mayes % (Auto) Lymph # (Auto) Mayes # (Auto) Baso # (Auto) Seg Neutrophils % Seg Neuts % (Manual) Lymphocytes % (Manual) Nucleated RBC % Seg Neutrophils # Seg Neutrophils # Man Lymphocytes # (Manual) Monocytes # (Manual) Eosinophils # (Manual) PT INR APTT D-Dimer Heparin Anti-Xa Level ABG pH POC ABG pCO2 POC ABG pO2 ABG pO2 ABG HCO3 ABG O2 Saturation ABG Base Excess ABG Hemoglobin ABG Oxyhemoglobin ABG Sodium ABG Potassium ABG Chloride ABG Glucose Oxyhemoglobin Carboxyhemoglobin Sodium Potassium Chloride Carbon Dioxide BUN Creatinine Glucose POC Glucose Lactic Acid Calcium Magnesium Ferritin 82122.0 H Total Bilirubin Direct Bilirubin AST ALT Alkaline Phosphatase Lactate Dehydrogenase 1523 H C-Reactive Protein 12.90 H Total Protein Albumin Triglycerides Lipase Arterial Blood Glucose Arterial Blood Ionized Calcium Urine WBC (Auto) Coronavirus (PCR) SARS-CoV-2 IgG Ab Reactive A Crossmatch 05/13/20 05/13/20 05/15/20 05:20 05:20 08:15 WBC RBC Hgb Hct MCV MCH MCHC RDW Lymph % (Auto) Mayes % (Auto) Lymph # (Auto) Mayes # (Auto) Baso # (Auto) Seg Neutrophils % Seg Neuts % (Manual) Lymphocytes % (Manual) Nucleated RBC % Seg Neutrophils # Seg Neutrophils # Man Lymphocytes # (Manual) Monocytes # (Manual) Eosinophils # (Manual) PT INR APTT D-Dimer > 16306 H 5318.28 H Heparin Anti-Xa Level ABG pH POC ABG pCO2 POC ABG pO2 ABG pO2 ABG HCO3 ABG O2 Saturation ABG Base Excess ABG Hemoglobin ABG Oxyhemoglobin ABG Sodium ABG Potassium ABG Chloride ABG Glucose Oxyhemoglobin Carboxyhemoglobin Sodium Potassium Chloride Carbon Dioxide 32 H BUN 30 H Creatinine Glucose 156 H POC Glucose Lactic Acid Calcium Magnesium 2.60 H Ferritin Total Bilirubin 1.40 H Direct Bilirubin AST 121 H ALT 119 H Alkaline Phosphatase Lactate Dehydrogenase 957 H C-Reactive Protein 4.00 H Total Protein Albumin 3.0 L Triglycerides Lipase Arterial Blood Glucose Arterial Blood Ionized Calcium Urine WBC (Auto) Coronavirus (PCR) SARS-CoV-2 IgG Ab Crossmatch 05/15/20 05/15/20 05/15/20 08:15 08:15 08:15 WBC 12.4 H RBC Hgb Hct MCV 98 H MCH 33 H MCHC RDW Lymph % (Auto) 9.7 L Mayes % (Auto) Lymph # (Auto) Mayes # (Auto) Baso # (Auto) Seg Neutrophils % 86.8 H Seg Neuts % (Manual) Lymphocytes % (Manual) Nucleated RBC % Seg Neutrophils # 10.8 H Seg Neutrophils # Man Lymphocytes # (Manual) Monocytes # (Manual) Eosinophils # (Manual) PT INR APTT D-Dimer Heparin Anti-Xa Level ABG pH POC ABG pCO2 POC ABG pO2 ABG pO2 ABG HCO3 ABG O2 Saturation ABG Base Excess ABG Hemoglobin ABG Oxyhemoglobin ABG Sodium ABG Potassium ABG Chloride ABG Glucose Oxyhemoglobin Carboxyhemoglobin Sodium Potassium Chloride 94.8 L Carbon Dioxide 32 H BUN 22 H Creatinine Glucose 115 H POC Glucose Lactic Acid Calcium 8.3 L Magnesium Ferritin 2494.0 H Total Bilirubin Direct Bilirubin AST 73 H ALT 121 H Alkaline Phosphatase Lactate Dehydrogenase 835 H C-Reactive Protein 3.40 H Total Protein 6.1 L Albumin 3.0 L Triglycerides Lipase Arterial Blood Glucose Arterial Blood Ionized Calcium Urine WBC (Auto) Coronavirus (PCR) SARS-CoV-2 IgG Ab Crossmatch 05/17/20 05/17/20 05/17/20 05:50 05:50 05:50 WBC RBC Hgb Hct MCV MCH MCHC RDW Lymph % (Auto) Mayes % (Auto) Lymph # (Auto) Mayes # (Auto) Baso # (Auto) Seg Neutrophils % Seg Neuts % (Manual) Lymphocytes % (Manual) Nucleated RBC % Seg Neutrophils # Seg Neutrophils # Man Lymphocytes # (Manual) Monocytes # (Manual) Eosinophils # (Manual) PT INR APTT D-Dimer 2911.42 H Heparin Anti-Xa Level ABG pH POC ABG pCO2 POC ABG pO2 ABG pO2 ABG HCO3 ABG O2 Saturation ABG Base Excess ABG Hemoglobin ABG Oxyhemoglobin ABG Sodium ABG Potassium ABG Chloride ABG Glucose Oxyhemoglobin Carboxyhemoglobin Sodium 136 L Potassium Chloride 96.0 L Carbon Dioxide 34 H BUN 22 H Creatinine Glucose 140 H POC Glucose Lactic Acid Calcium Magnesium Ferritin 2082.0 H Total Bilirubin Direct Bilirubin AST ALT 75 H Alkaline Phosphatase Lactate Dehydrogenase 601 H C-Reactive Protein 2.70 H Total Protein Albumin 2.9 L Triglycerides Lipase Arterial Blood Glucose Arterial Blood Ionized Calcium Urine WBC (Auto) Coronavirus (PCR) SARS-CoV-2 IgG Ab Crossmatch 05/17/20 05/18/20 05/20/20 05:50 12:22 08:16 WBC RBC Hgb Hct MCV 98 H MCH 33 H MCHC RDW Lymph % (Auto) 8.0 L Mayes % (Auto) Lymph # (Auto) 0.8 L Mayes # (Auto) Baso # (Auto) Seg Neutrophils % 89.3 H Seg Neuts % (Manual) Lymphocytes % (Manual) Nucleated RBC % Seg Neutrophils # 8.8 H Seg Neutrophils # Man Lymphocytes # (Manual) Monocytes # (Manual) Eosinophils # (Manual) PT INR APTT D-Dimer 1887.82 H Heparin Anti-Xa Level ABG pH POC ABG pCO2 POC ABG pO2 ABG pO2 ABG HCO3 ABG O2 Saturation ABG Base Excess ABG Hemoglobin ABG Oxyhemoglobin ABG Sodium ABG Potassium ABG Chloride ABG Glucose Oxyhemoglobin Carboxyhemoglobin Sodium Potassium Chloride Carbon Dioxide BUN Creatinine Glucose POC Glucose 178 H Lactic Acid Calcium Magnesium Ferritin Total Bilirubin Direct Bilirubin AST ALT Alkaline Phosphatase Lactate Dehydrogenase C-Reactive Protein Total Protein Albumin Triglycerides Lipase Arterial Blood Glucose Arterial Blood Ionized Calcium Urine WBC (Auto) Coronavirus (PCR) SARS-CoV-2 IgG Ab Crossmatch 05/20/20 05/20/20 05/21/20 08:16 08:16 21:10 WBC RBC Hgb Hct MCV MCH MCHC RDW Lymph % (Auto) Mayes % (Auto) Lymph # (Auto) Mayes # (Auto) Baso # (Auto) Seg Neutrophils % Seg Neuts % (Manual) Lymphocytes % (Manual) Nucleated RBC % Seg Neutrophils # Seg Neutrophils # Man Lymphocytes # (Manual) Monocytes # (Manual) Eosinophils # (Manual) PT INR APTT D-Dimer Heparin Anti-Xa Level ABG pH 7.483 H POC ABG pCO2 POC ABG pO2 ABG pO2 50.0 L ABG HCO3 27.0 H ABG O2 Saturation 86.2 L ABG Base Excess 3.7 H ABG Hemoglobin ABG Oxyhemoglobin ABG Sodium ABG Potassium ABG Chloride ABG Glucose Oxyhemoglobin 84.2 L Carboxyhemoglobin Sodium Potassium Chloride Carbon Dioxide BUN Creatinine Glucose POC Glucose Lactic Acid Calcium Magnesium Ferritin 1960.0 H Total Bilirubin Direct Bilirubin AST ALT Alkaline Phosphatase Lactate Dehydrogenase 705 H C-Reactive Protein 3.10 H Total Protein Albumin Triglycerides Lipase Arterial Blood Glucose Arterial Blood Ionized Calcium Urine WBC (Auto) Coronavirus (PCR) SARS-CoV-2 IgG Ab Crossmatch 05/22/20 05/22/20 05/22/20 04:01 07:53 07:53 WBC 19.2 H RBC Hgb Hct MCV 98 H MCH 34 H MCHC RDW Lymph % (Auto) Mayes % (Auto) Lymph # (Auto) Mayes # (Auto) Baso # (Auto) Seg Neutrophils % Seg Neuts % (Manual) 96.0 H Lymphocytes % (Manual) 1.0 L Nucleated RBC % Seg Neutrophils # Seg Neutrophils # Man 18.4 H Lymphocytes # (Manual) 0.2 L Monocytes # (Manual) Eosinophils # (Manual) PT INR APTT D-Dimer Heparin Anti-Xa Level ABG pH POC ABG pCO2 53.8 H POC ABG pO2 125.5 H ABG pO2 ABG HCO3 ABG O2 Saturation ABG Base Excess ABG Hemoglobin ABG Oxyhemoglobin ABG Sodium 131.8 L ABG Potassium 4.8 H ABG Chloride 94.0 L ABG Glucose 163 H Oxyhemoglobin Carboxyhemoglobin Sodium 131 L Potassium Chloride 93.4 L Carbon Dioxide BUN 40 H Creatinine Glucose 176 H POC Glucose Lactic Acid Calcium Magnesium 2.70 H Ferritin Total Bilirubin 1.80 H Direct Bilirubin AST 45 H ALT 116 H Alkaline Phosphatase 181 H Lactate Dehydrogenase C-Reactive Protein Total Protein Albumin 2.6 L Triglycerides Lipase Arterial Blood Glucose 163 H Arterial Blood Ionized Calcium 4.5 L Urine WBC (Auto) Coronavirus (PCR) SARS-CoV-2 IgG Ab Crossmatch 05/23/20 05/24/20 05/24/20 04:17 03:07 04:08 WBC RBC Hgb Hct MCV MCH MCHC RDW Lymph % (Auto) Mayes % (Auto) Lymph # (Auto) Mayes # (Auto) Baso # (Auto) Seg Neutrophils % Seg Neuts % (Manual) Lymphocytes % (Manual) Nucleated RBC % Seg Neutrophils # Seg Neutrophils # Man Lymphocytes # (Manual) Monocytes # (Manual) Eosinophils # (Manual) PT INR APTT D-Dimer Heparin Anti-Xa Level ABG pH 7.328 L POC ABG pCO2 POC ABG pO2 ABG pO2 72.8 L 73.4 L ABG HCO3 31.0 H 34.0 H ABG O2 Saturation 93.5 L ABG Base Excess 3.5 H 7.7 H ABG Hemoglobin 13.3 L 12.1 L ABG Oxyhemoglobin ABG Sodium ABG Potassium ABG Chloride ABG Glucose Oxyhemoglobin 91.5 L 94.3 L Carboxyhemoglobin Sodium Potassium Chloride Carbon Dioxide BUN Creatinine Glucose POC Glucose 155 H Lactic Acid Calcium Magnesium Ferritin Total Bilirubin Direct Bilirubin AST ALT Alkaline Phosphatase Lactate Dehydrogenase C-Reactive Protein Total Protein Albumin Triglycerides Lipase Arterial Blood Glucose Arterial Blood Ionized Calcium Urine WBC (Auto) Coronavirus (PCR) SARS-CoV-2 IgG Ab Crossmatch 05/24/20 05/24/20 05/24/20 09:33 12:21 17:52 WBC RBC Hgb Hct MCV MCH MCHC RDW Lymph % (Auto) Mayes % (Auto) Lymph # (Auto) Mayes # (Auto) Baso # (Auto) Seg Neutrophils % Seg Neuts % (Manual) Lymphocytes % (Manual) Nucleated RBC % Seg Neutrophils # Seg Neutrophils # Man Lymphocytes # (Manual) Monocytes # (Manual) Eosinophils # (Manual) PT INR APTT D-Dimer Heparin Anti-Xa Level ABG pH POC ABG pCO2 POC ABG pO2 ABG pO2 ABG HCO3 ABG O2 Saturation ABG Base Excess ABG Hemoglobin ABG Oxyhemoglobin ABG Sodium ABG Potassium ABG Chloride ABG Glucose Oxyhemoglobin Carboxyhemoglobin Sodium Potassium Chloride Carbon Dioxide 34 H D BUN 28 H Creatinine 0.7 L Glucose 168 H POC Glucose 173 H 164 H Lactic Acid Calcium Magnesium Ferritin Total Bilirubin Direct Bilirubin AST ALT Alkaline Phosphatase Lactate Dehydrogenase C-Reactive Protein Total Protein Albumin Triglycerides Lipase Arterial Blood Glucose Arterial Blood Ionized Calcium Urine WBC (Auto) Coronavirus (PCR) SARS-CoV-2 IgG Ab Crossmatch 05/24/20 05/25/20 05/25/20 23:47 04:29 05:46 WBC RBC Hgb Hct MCV MCH MCHC RDW Lymph % (Auto) Mayes % (Auto) Lymph # (Auto) Mayes # (Auto) Baso # (Auto) Seg Neutrophils % Seg Neuts % (Manual) Lymphocytes % (Manual) Nucleated RBC % Seg Neutrophils # Seg Neutrophils # Man Lymphocytes # (Manual) Monocytes # (Manual) Eosinophils # (Manual) PT INR APTT D-Dimer Heparin Anti-Xa Level ABG pH POC ABG pCO2 68.6 H POC ABG pO2 ABG pO2 ABG HCO3 ABG O2 Saturation ABG Base Excess ABG Hemoglobin ABG Oxyhemoglobin ABG Sodium ABG Potassium 4.7 H ABG Chloride ABG Glucose 226 H Oxyhemoglobin Carboxyhemoglobin Sodium Potassium Chloride Carbon Dioxide BUN Creatinine Glucose POC Glucose 171 H 201 H Lactic Acid Calcium Magnesium Ferritin Total Bilirubin Direct Bilirubin AST ALT Alkaline Phosphatase Lactate Dehydrogenase C-Reactive Protein Total Protein Albumin Triglycerides Lipase Arterial Blood Glucose 226 H Arterial Blood Ionized Calcium Urine WBC (Auto) Coronavirus (PCR) SARS-CoV-2 IgG Ab Crossmatch 05/25/20 05/25/20 05/25/20 08:37 08:37 12:38 WBC 12.0 H RBC 3.64 L Hgb Hct MCV 99 H MCH 33 H MCHC RDW Lymph % (Auto) [place]es % (Auto) Lymph # (Auto) [place]es # (Auto) Baso # (Auto) Seg Neutrophils % Seg Neuts % (Manual) Lymphocytes % (Manual) Nucleated RBC % Seg Neutrophils # Seg Neutrophils # Man Lymphocytes # (Manual) Monocytes # (Manual) Eosinophils # (Manual) PT INR APTT D-Dimer Heparin Anti-Xa Level ABG pH POC ABG pCO2 POC ABG pO2 ABG pO2 ABG HCO3 ABG O2 Saturation ABG Base Excess ABG Hemoglobin ABG Oxyhemoglobin ABG Sodium ABG Potassium ABG Chloride ABG Glucose Oxyhemoglobin Carboxyhemoglobin Sodium Potassium Chloride 97.3 L Carbon Dioxide 35 H BUN 25 H Creatinine 0.7 L Glucose 191 H POC Glucose 182 H Lactic Acid Calcium Magnesium Ferritin Total Bilirubin Direct Bilirubin AST ALT Alkaline Phosphatase Lactate Dehydrogenase C-Reactive Protein Total Protein Albumin Triglycerides Lipase Arterial Blood Glucose Arterial Blood Ionized Calcium Urine WBC (Auto) Coronavirus (PCR) SARS-CoV-2 IgG Ab Crossmatch 05/25/20 05/26/20 05/26/20 18:16 00:06 04:50 WBC RBC Hgb Hct MCV MCH MCHC RDW Lymph % (Auto) [place]es % (Auto) Lymph # (Auto) [place]es # (Auto) Baso # (Auto) Seg Neutrophils % Seg Neuts % (Manual) Lymphocytes % (Manual) Nucleated RBC % Seg Neutrophils # Seg Neutrophils # Man Lymphocytes # (Manual) Monocytes # (Manual) Eosinophils # (Manual) PT INR APTT D-Dimer Heparin Anti-Xa Level ABG pH POC ABG pCO2 POC ABG pO2 ABG pO2 221.5 H ABG HCO3 40.4 H ABG O2 Saturation 99.3 H ABG Base Excess 12.8 H ABG Hemoglobin 10.4 L ABG Oxyhemoglobin ABG Sodium ABG Potassium ABG Chloride ABG Glucose Oxyhemoglobin Carboxyhemoglobin Sodium Potassium Chloride Carbon Dioxide BUN Creatinine Glucose POC Glucose 176 H 152 H Lactic Acid Calcium Magnesium Ferritin Total Bilirubin Direct Bilirubin AST ALT Alkaline Phosphatase Lactate Dehydrogenase C-Reactive Protein Total Protein Albumin Triglycerides Lipase Arterial Blood Glucose Arterial Blood Ionized Calcium Urine WBC (Auto) Coronavirus (PCR) SARS-CoV-2 IgG Ab Crossmatch 05/26/20 05/26/20 05/26/20 06:11 07:51 07:51 WBC 13.4 H RBC 3.64 L Hgb Hct MCV 98 H MCH 33 H MCHC RDW Lymph % (Auto) [place] % (Auto) Lymph # (Auto) [place]es # (Auto) Baso # (Auto) Seg Neutrophils % Seg Neuts % (Manual) Lymphocytes % (Manual) Nucleated RBC % Seg Neutrophils # Seg Neutrophils # Man Lymphocytes # (Manual) Monocytes # (Manual) Eosinophils # (Manual) PT INR APTT D-Dimer Heparin Anti-Xa Level ABG pH POC ABG pCO2 POC ABG pO2 ABG pO2 ABG HCO3 ABG O2 Saturation ABG Base Excess ABG Hemoglobin ABG Oxyhemoglobin ABG Sodium ABG Potassium ABG Chloride ABG Glucose Oxyhemoglobin Carboxyhemoglobin Sodium Potassium Chloride 96.6 L Carbon Dioxide 39 H BUN 29 H Creatinine 0.7 L Glucose 174 H POC Glucose 165 H Lactic Acid Calcium Magnesium Ferritin Total Bilirubin Direct Bilirubin AST ALT Alkaline Phosphatase Lactate Dehydrogenase C-Reactive Protein Total Protein Albumin Triglycerides Lipase Arterial Blood Glucose Arterial Blood Ionized Calcium Urine WBC (Auto) Coronavirus (PCR) SARS-CoV-2 IgG Ab Crossmatch 05/26/20 05/27/20 05/27/20 23:23 03:43 05:29 WBC RBC Hgb Hct MCV MCH MCHC RDW Lymph % (Auto) [place]es % (Auto) Lymph # (Auto) [place]es # (Auto) Baso # (Auto) Seg Neutrophils % Seg Neuts % (Manual) Lymphocytes % (Manual) Nucleated RBC % Seg Neutrophils # Seg Neutrophils # Man Lymphocytes # (Manual) Monocytes # (Manual) Eosinophils # (Manual) PT INR APTT D-Dimer Heparin Anti-Xa Level ABG pH 7.480 H POC ABG pCO2 52.4 H POC ABG pO2 61.4 L ABG pO2 ABG HCO3 ABG O2 Saturation ABG Base Excess ABG Hemoglobin ABG Oxyhemoglobin ABG Sodium 134.9 L ABG Potassium ABG Chloride 95.0 L ABG Glucose 221 H Oxyhemoglobin Carboxyhemoglobin Sodium Potassium Chloride Carbon Dioxide BUN Creatinine Glucose POC Glucose 169 H 227 H Lactic Acid Calcium Magnesium Ferritin Total Bilirubin Direct Bilirubin AST ALT Alkaline Phosphatase Lactate Dehydrogenase C-Reactive Protein Total Protein Albumin Triglycerides Lipase Arterial Blood Glucose 221 H Arterial Blood Ionized Calcium 4.5 L Urine WBC (Auto) Coronavirus (PCR) SARS-CoV-2 IgG Ab Crossmatch 05/27/20 05/27/20 05/27/20 07:19 12:18 13:50 WBC RBC Hgb Hct MCV MCH MCHC RDW Lymph % (Auto) [place] % (Auto) Lymph # (Auto) [place]es # (Auto) Baso # (Auto) Seg Neutrophils % Seg Neuts % (Manual) Lymphocytes % (Manual) Nucleated RBC % Seg Neutrophils # Seg Neutrophils # Man Lymphocytes # (Manual) Monocytes # (Manual) Eosinophils # (Manual) PT INR APTT D-Dimer Heparin Anti-Xa Level ABG pH POC ABG pCO2 POC ABG pO2 ABG pO2 ABG HCO3 ABG O2 Saturation ABG Base Excess ABG Hemoglobin ABG Oxyhemoglobin ABG Sodium ABG Potassium ABG Chloride ABG Glucose Oxyhemoglobin Carboxyhemoglobin Sodium Potassium Chloride Carbon Dioxide BUN Creatinine Glucose POC Glucose 114 H 148 H Lactic Acid Calcium Magnesium Ferritin Total Bilirubin Direct Bilirubin AST ALT Alkaline Phosphatase Lactate Dehydrogenase C-Reactive Protein Total Protein Albumin Triglycerides 247 H Lipase Arterial Blood Glucose Arterial Blood Ionized Calcium Urine WBC (Auto) Coronavirus (PCR) SARS-CoV-2 IgG Ab Crossmatch 05/28/20 05/28/20 05/28/20 00:13 04:16 05:22 WBC RBC Hgb Hct MCV MCH MCHC RDW Lymph % (Auto) [place]es % (Auto) Lymph # (Auto) [place]es # (Auto) Baso # (Auto) Seg Neutrophils % Seg Neuts % (Manual) Lymphocytes % (Manual) Nucleated RBC % Seg Neutrophils # Seg Neutrophils # Man Lymphocytes # (Manual) Monocytes # (Manual) Eosinophils # (Manual) PT INR APTT D-Dimer Heparin Anti-Xa Level ABG pH POC ABG pCO2 64.4 H POC ABG pO2 60.5 L ABG pO2 ABG HCO3 ABG O2 Saturation ABG Base Excess ABG Hemoglobin ABG Oxyhemoglobin ABG Sodium ABG Potassium ABG Chloride 95.0 L ABG Glucose 209 H Oxyhemoglobin Carboxyhemoglobin Sodium Potassium Chloride Carbon Dioxide BUN Creatinine Glucose POC Glucose 155 H 186 H Lactic Acid Calcium Magnesium Ferritin Total Bilirubin Direct Bilirubin AST ALT Alkaline Phosphatase Lactate Dehydrogenase C-Reactive Protein Total Protein Albumin Triglycerides Lipase Arterial Blood Glucose 209 H Arterial Blood Ionized Calcium Urine WBC (Auto) Coronavirus (PCR) SARS-CoV-2 IgG Ab Crossmatch 05/28/20 05/28/20 05/29/20 12:45 17:39 00:37 WBC RBC Hgb Hct MCV MCH MCHC RDW Lymph % (Auto) [place] % (Auto) Lymph # (Auto) [place]es # (Auto) Baso # (Auto) Seg Neutrophils % Seg Neuts % (Manual) Lymphocytes % (Manual) Nucleated RBC % Seg Neutrophils # Seg Neutrophils # Man Lymphocytes # (Manual) Monocytes # (Manual) Eosinophils # (Manual) PT INR APTT D-Dimer Heparin Anti-Xa Level ABG pH POC ABG pCO2 POC ABG pO2 ABG pO2 ABG HCO3 ABG O2 Saturation ABG Base Excess ABG Hemoglobin ABG Oxyhemoglobin ABG Sodium ABG Potassium ABG Chloride ABG Glucose Oxyhemoglobin Carboxyhemoglobin Sodium Potassium Chloride Carbon Dioxide BUN Creatinine Glucose POC Glucose 143 H 164 H 221 H Lactic Acid Calcium Magnesium Ferritin Total Bilirubin Direct Bilirubin AST ALT Alkaline Phosphatase Lactate Dehydrogenase C-Reactive Protein Total Protein Albumin Triglycerides Lipase Arterial Blood Glucose Arterial Blood Ionized Calcium Urine WBC (Auto) Coronavirus (PCR) SARS-CoV-2 IgG Ab Crossmatch 05/29/20 05/29/2020 04:15 05:33 12:34 WBC RBC Hgb Hct MCV MCH MCHC RDW Lymph % (Auto) [place] % (Auto) Lymph # (Auto) [place]es # (Auto) Baso # (Auto) Seg Neutrophils % Seg Neuts % (Manual) Lymphocytes % (Manual) Nucleated RBC % Seg Neutrophils # Seg Neutrophils # Man Lymphocytes # (Manual) Monocytes # (Manual) Eosinophils # (Manual) PT INR APTT D-Dimer Heparin Anti-Xa Level ABG pH 7.463 H POC ABG pCO2 56.3 H POC ABG pO2 81.2 L ABG pO2 ABG HCO3 ABG O2 Saturation ABG Base Excess ABG Hemoglobin ABG Oxyhemoglobin ABG Sodium ABG Potassium ABG Chloride 96.0 L ABG Glucose 194 H Oxyhemoglobin Carboxyhemoglobin Sodium Potassium Chloride Carbon Dioxide BUN Creatinine Glucose POC Glucose 133 H 221 H Lactic Acid Calcium Magnesium Ferritin Total Bilirubin Direct Bilirubin AST ALT Alkaline Phosphatase Lactate Dehydrogenase C-Reactive Protein Total Protein Albumin Triglycerides Lipase Arterial Blood Glucose 194 H Arterial Blood Ionized Calcium 4.5 L Urine WBC (Auto) Coronavirus (PCR) SARS-CoV-2 IgG Ab Crossmatch 05/29/20 05/30/20 05/30/20 18:07 00:12 05:38 WBC RBC Hgb Hct MCV MCH MCHC RDW Lymph % (Auto) [place] % (Auto) Lymph # (Auto) [place] # (Auto) Baso # (Auto) Seg Neutrophils % Seg Neuts % (Manual) Lymphocytes % (Manual) Nucleated RBC % Seg Neutrophils # Seg Neutrophils # Man Lymphocytes # (Manual) Monocytes # (Manual) Eosinophils # (Manual) PT INR APTT D-Dimer Heparin Anti-Xa Level ABG pH POC ABG pCO2 POC ABG pO2 ABG pO2 ABG HCO3 ABG O2 Saturation ABG Base Excess ABG Hemoglobin ABG Oxyhemoglobin ABG Sodium ABG Potassium ABG Chloride ABG Glucose Oxyhemoglobin Carboxyhemoglobin Sodium Potassium Chloride Carbon Dioxide BUN Creatinine Glucose POC Glucose 162 H 190 H 208 H Lactic Acid Calcium Magnesium Ferritin Total Bilirubin Direct Bilirubin AST ALT Alkaline Phosphatase Lactate Dehydrogenase C-Reactive Protein Total Protein Albumin Triglycerides Lipase Arterial Blood Glucose Arterial Blood Ionized Calcium Urine WBC (Auto) Coronavirus (PCR) SARS-CoV-2 IgG Ab Crossmatch 05/30/20 05/30/20 05/30/20 09:30 11:35 11:54 WBC 12.4 H RBC 3.48 L Hgb 11.3 L Hct 34.6 L MCV 99 H MCH 33 H MCHC RDW Lymph % (Auto) [place] % (Auto) Lymph # (Auto) [place] # (Auto) Baso # (Auto) Seg Neutrophils % Seg Neuts % (Manual) Lymphocytes % (Manual) Nucleated RBC % Seg Neutrophils # Seg Neutrophils # Man Lymphocytes # (Manual) Monocytes # (Manual) Eosinophils # (Manual) PT INR APTT D-Dimer Heparin Anti-Xa Level ABG pH 7.455 H POC ABG pCO2 57.5 H POC ABG pO2 81.5 L ABG pO2 ABG HCO3 ABG O2 Saturation ABG Base Excess ABG Hemoglobin ABG Oxyhemoglobin ABG Sodium ABG Potassium ABG Chloride 96.0 L ABG Glucose 204 H Oxyhemoglobin Carboxyhemoglobin Sodium Potassium Chloride Carbon Dioxide BUN Creatinine Glucose POC Glucose 183 H Lactic Acid Calcium Magnesium Ferritin Total Bilirubin Direct Bilirubin AST ALT Alkaline Phosphatase Lactate Dehydrogenase C-Reactive Protein Total Protein Albumin Triglycerides Lipase Arterial Blood Glucose 204 H Arterial Blood Ionized Calcium Urine WBC (Auto) Coronavirus (PCR) SARS-CoV-2 IgG Ab Crossmatch 05/30/20 05/31/20 05/31/20 18:01 00:10 03:22 WBC RBC Hgb Hct MCV MCH MCHC RDW Lymph % (Auto) [place] % (Auto) Lymph # (Auto) [place] # (Auto) Baso # (Auto) Seg Neutrophils % Seg Neuts % (Manual) Lymphocytes % (Manual) Nucleated RBC % Seg Neutrophils # Seg Neutrophils # Man Lymphocytes # (Manual) Monocytes # (Manual) Eosinophils # (Manual) PT INR APTT D-Dimer Heparin Anti-Xa Level ABG pH POC ABG pCO2 60.4 H POC ABG pO2 71.5 L ABG pO2 ABG HCO3 ABG O2 Saturation ABG Base Excess ABG Hemoglobin ABG Oxyhemoglobin ABG Sodium ABG Potassium ABG Chloride 96.0 L ABG Glucose 169 H Oxyhemoglobin Carboxyhemoglobin Sodium Potassium Chloride Carbon Dioxide BUN Creatinine Glucose POC Glucose 184 H 135 H Lactic Acid Calcium Magnesium Ferritin Total Bilirubin Direct Bilirubin AST ALT Alkaline Phosphatase Lactate Dehydrogenase C-Reactive Protein Total Protein Albumin Triglycerides Lipase Arterial Blood Glucose 169 H Arterial Blood Ionized Calcium 4.5 L Urine WBC (Auto) Coronavirus (PCR) SARS-CoV-2 IgG Ab Crossmatch 05/31/20 05/31/2005/31/20 05:24 11:18 14:41 WBC RBC Hgb Hct MCV MCH MCHC RDW Lymph % (Auto) [place] % (Auto) Lymph # (Auto) [place] # (Auto) Baso # (Auto) Seg Neutrophils % Seg Neuts % (Manual) Lymphocytes % (Manual) Nucleated RBC % Seg Neutrophils # Seg Neutrophils # Man Lymphocytes # (Manual) Monocytes # (Manual) Eosinophils # (Manual) PT INR APTT D-Dimer Heparin Anti-Xa Level ABG pH POC ABG pCO2 POC ABG pO2 ABG pO2 ABG HCO3 ABG O2 Saturation ABG Base Excess ABG Hemoglobin ABG Oxyhemoglobin ABG Sodium ABG Potassium ABG Chloride ABG Glucose Oxyhemoglobin Carboxyhemoglobin Sodium Potassium Chloride 96.8 L Carbon Dioxide 37 H BUN 31 H Creatinine 0.6 L Glucose 213 H POC Glucose 164 H 208 H Lactic Acid Calcium Magnesium Ferritin Total Bilirubin Direct Bilirubin AST ALT Alkaline Phosphatase Lactate Dehydrogenase C-Reactive Protein Total Protein Albumin Triglycerides Lipase Arterial Blood Glucose Arterial Blood Ionized Calcium Urine WBC (Auto) Coronavirus (PCR) SARS-CoV-2 IgG Ab Crossmatch 05/31/20 05/31/20 06/01/20 17:37 23:47 03:48 WBC RBC Hgb Hct MCV MCH MCHC RDW Lymph % (Auto) [place] % (Auto) Lymph # (Auto) [place]es # (Auto) Baso # (Auto) Seg Neutrophils % Seg Neuts % (Manual) Lymphocytes % (Manual) Nucleated RBC % Seg Neutrophils # Seg Neutrophils # Man Lymphocytes # (Manual) Monocytes # (Manual) Eosinophils # (Manual) PT INR APTT D-Dimer Heparin Anti-Xa Level ABG pH POC ABG pCO2 59.7 H POC ABG pO2 73.9 L ABG pO2 ABG HCO3 ABG O2 Saturation ABG Base Excess ABG Hemoglobin ABG Oxyhemoglobin ABG Sodium ABG Potassium ABG Chloride 95.0 L ABG Glucose 256 H Oxyhemoglobin Carboxyhemoglobin Sodium Potassium Chloride Carbon Dioxide BUN Creatinine Glucose POC Glucose 168 H 178 H Lactic Acid Calcium Magnesium Ferritin Total Bilirubin Direct Bilirubin AST ALT Alkaline Phosphatase Lactate Dehydrogenase C-Reactive Protein Total Protein Albumin Triglycerides Lipase Arterial Blood Glucose 256 H Arterial Blood Ionized Calcium Urine WBC (Auto) Coronavirus (PCR) SARS-CoV-2 IgG Ab Crossmatch 06/01/20 06/01/20 06/01/20 05:01 07:47 07:47 WBC 14.4 H RBC 3.46 L Hgb 11.1 L Hct 34.3 L MCV 99 H MCH MCHC RDW Lymph % (Auto) [place]es % (Auto) Lymph # (Auto) [place]es # (Auto) Baso # (Auto) Seg Neutrophils % Seg Neuts % (Manual) 86.0 H Lymphocytes % (Manual) 9.0 L Nucleated RBC % Seg Neutrophils # Seg Neutrophils # Man 12.4 H Lymphocytes # (Manual) Monocytes # (Manual) Eosinophils # (Manual) PT INR APTT D-Dimer Heparin Anti-Xa Level ABG pH POC ABG pCO2 POC ABG pO2 ABG pO2 ABG HCO3 ABG O2 Saturation ABG Base Excess ABG Hemoglobin ABG Oxyhemoglobin ABG Sodium ABG Potassium ABG Chloride ABG Glucose Oxyhemoglobin Carboxyhemoglobin Sodium Potassium Chloride Carbon Dioxide BUN Creatinine Glucose POC Glucose 197 H Lactic Acid Calcium Magnesium Ferritin Total Bilirubin Direct Bilirubin AST ALT Alkaline Phosphatase Lactate Dehydrogenase C-Reactive Protein Total Protein Albumin Triglycerides 244 H Lipase Arterial Blood Glucose Arterial Blood Ionized Calcium Urine WBC (Auto) Coronavirus (PCR) SARS-CoV-2 IgG Ab Crossmatch 06/01/20 06/01/20 06/01/20 07:47 11:46 18:15 WBC RBC Hgb Hct MCV MCH MCHC RDW Lymph % (Auto) [place]es % (Auto) Lymph # (Auto) [place]es # (Auto) Baso # (Auto) Seg Neutrophils % Seg Neuts % (Manual) Lymphocytes % (Manual) Nucleated RBC % Seg Neutrophils # Seg Neutrophils # Man Lymphocytes # (Manual) Monocytes # (Manual) Eosinophils # (Manual) PT INR APTT D-Dimer Heparin Anti-Xa Level ABG pH POC ABG pCO2 POC ABG pO2 ABG pO2 ABG HCO3 ABG O2 Saturation ABG Base Excess ABG Hemoglobin ABG Oxyhemoglobin ABG Sodium ABG Potassium ABG Chloride ABG Glucose Oxyhemoglobin Carboxyhemoglobin Sodium Potassium Chloride 95.4 L Carbon Dioxide 35 H BUN 30 H Creatinine 0.5 L Glucose 214 H POC Glucose 181 H 221 H Lactic Acid Calcium Magnesium Ferritin Total Bilirubin Direct Bilirubin AST 54 H ALT 235 H Alkaline Phosphatase Lactate Dehydrogenase C-Reactive Protein Total Protein Albumin 2.9 L Triglycerides Lipase Arterial Blood Glucose Arterial Blood Ionized Calcium Urine WBC (Auto) Coronavirus (PCR) SARS-CoV-2 IgG Ab Crossmatch 06/01/20 06/02/20 06/02/20 23:12 04:00 05:31 WBC RBC Hgb Hct MCV MCH MCHC RDW Lymph % (Auto) [place] % (Auto) Lymph # (Auto) [place]es # (Auto) Baso # (Auto) Seg Neutrophils % Seg Neuts % (Manual) Lymphocytes % (Manual) Nucleated RBC % Seg Neutrophils # Seg Neutrophils # Man Lymphocytes # (Manual) Monocytes # (Manual) Eosinophils # (Manual) PT INR APTT D-Dimer Heparin Anti-Xa Level ABG pH 7.465 H POC ABG pCO2 POC ABG pO2 ABG pO2 203.4 H ABG HCO3 41.2 H ABG O2 Saturation 99.3 H ABG Base Excess 15.1 H ABG Hemoglobin 11.5 L ABG Oxyhemoglobin ABG Sodium ABG Potassium ABG Chloride ABG Glucose Oxyhemoglobin Carboxyhemoglobin Sodium Potassium Chloride Carbon Dioxide BUN Creatinine Glucose POC Glucose 197 H 184 H Lactic Acid Calcium Magnesium Ferritin Total Bilirubin Direct Bilirubin AST ALT Alkaline Phosphatase Lactate Dehydrogenase C-Reactive Protein Total Protein Albumin Triglycerides Lipase Arterial Blood Glucose Arterial Blood Ionized Calcium Urine WBC (Auto) Coronavirus (PCR) SARS-CoV-2 IgG Ab Crossmatch 06/02/20 06/02/20 06/02/20 11:49 18:06 23:00 WBC RBC Hgb Hct MCV MCH MCHC RDW Lymph % (Auto) [place]es % (Auto) Lymph # (Auto) [place]es # (Auto) Baso # (Auto) Seg Neutrophils % Seg Neuts % (Manual) Lymphocytes % (Manual) Nucleated RBC % Seg Neutrophils # Seg Neutrophils # Man Lymphocytes # (Manual) Monocytes # (Manual) Eosinophils # (Manual) PT INR APTT D-Dimer Heparin Anti-Xa Level ABG pH POC ABG pCO2 POC ABG pO2 ABG pO2 ABG HCO3 ABG O2 Saturation ABG Base Excess ABG Hemoglobin ABG Oxyhemoglobin ABG Sodium ABG Potassium ABG Chloride ABG Glucose Oxyhemoglobin Carboxyhemoglobin Sodium Potassium Chloride Carbon Dioxide BUN Creatinine Glucose POC Glucose 195 H 177 H 228 H Lactic Acid Calcium Magnesium Ferritin Total Bilirubin Direct Bilirubin AST ALT Alkaline Phosphatase Lactate Dehydrogenase C-Reactive Protein Total Protein Albumin Triglycerides Lipase Arterial Blood Glucose Arterial Blood Ionized Calcium Urine WBC (Auto) Coronavirus (PCR) SARS-CoV-2 IgG Ab Crossmatch 06/03/20 06/03/20 06/03/20 03:58 05:19 12:21 WBC RBC Hgb Hct MCV MCH MCHC RDW Lymph % (Auto) [place]es % (Auto) Lymph # (Auto) [place]es # (Auto) Baso # (Auto) Seg Neutrophils % Seg Neuts % (Manual) Lymphocytes % (Manual) Nucleated RBC % Seg Neutrophils # Seg Neutrophils # Man Lymphocytes # (Manual) Monocytes # (Manual) Eosinophils # (Manual) PT INR APTT D-Dimer Heparin Anti-Xa Level ABG pH POC ABG pCO2 POC ABG pO2 ABG pO2 171.0 H ABG HCO3 42.8 H ABG O2 Saturation ABG Base Excess 15.6 H ABG Hemoglobin 12.3 L ABG Oxyhemoglobin ABG Sodium ABG Potassium ABG Chloride ABG Glucose Oxyhemoglobin Carboxyhemoglobin Sodium Potassium Chloride Carbon Dioxide BUN Creatinine Glucose POC Glucose 122 H 207 H Lactic Acid Calcium Magnesium Ferritin Total Bilirubin Direct Bilirubin AST ALT Alkaline Phosphatase Lactate Dehydrogenase C-Reactive Protein Total Protein Albumin Triglycerides Lipase Arterial Blood Glucose Arterial Blood Ionized Calcium Urine WBC (Auto) Coronavirus (PCR) SARS-CoV-2 IgG Ab Crossmatch 06/03/20 06/03/20 06/04/20 17:27 23:50 03:55 WBC RBC Hgb Hct MCV MCH MCHC RDW Lymph % (Auto) [place]es % (Auto) Lymph # (Auto) [place]es # (Auto) Baso # (Auto) Seg Neutrophils % Seg Neuts % (Manual) Lymphocytes % (Manual) Nucleated RBC % Seg Neutrophils # Seg Neutrophils # Man Lymphocytes # (Manual) Monocytes # (Manual) Eosinophils # (Manual) PT INR APTT D-Dimer Heparin Anti-Xa Level ABG pH POC ABG pCO2 POC ABG pO2 ABG pO2 117.2 H ABG HCO3 42.4 H ABG O2 Saturation ABG Base Excess 15.3 H ABG Hemoglobin 10.5 L ABG Oxyhemoglobin ABG Sodium ABG Potassium ABG Chloride ABG Glucose Oxyhemoglobin Carboxyhemoglobin Sodium Potassium Chloride Carbon Dioxide BUN Creatinine Glucose POC Glucose 157 H 214 H Lactic Acid Calcium Magnesium Ferritin Total Bilirubin Direct Bilirubin AST ALT Alkaline Phosphatase Lactate Dehydrogenase C-Reactive Protein Total Protein Albumin Triglycerides Lipase Arterial Blood Glucose Arterial Blood Ionized Calcium Urine WBC (Auto) Coronavirus (PCR) SARS-CoV-2 IgG Ab Crossmatch 06/04/20 06/04/20 06/04/20 05:49 11:41 17:30 WBC RBC Hgb Hct MCV MCH MCHC RDW Lymph % (Auto) [place]es % (Auto) Lymph # (Auto) [place]es # (Auto) Baso # (Auto) Seg Neutrophils % Seg Neuts % (Manual) Lymphocytes % (Manual) Nucleated RBC % Seg Neutrophils # Seg Neutrophils # Man Lymphocytes # (Manual) Monocytes # (Manual) Eosinophils # (Manual) PT INR APTT D-Dimer Heparin Anti-Xa Level ABG pH POC ABG pCO2 POC ABG pO2 ABG pO2 ABG HCO3 ABG O2 Saturation ABG Base Excess ABG Hemoglobin ABG Oxyhemoglobin ABG Sodium ABG Potassium ABG Chloride ABG Glucose Oxyhemoglobin Carboxyhemoglobin Sodium Potassium Chloride Carbon Dioxide BUN Creatinine Glucose POC Glucose 149 H 233 H 156 H Lactic Acid Calcium Magnesium Ferritin Total Bilirubin Direct Bilirubin AST ALT Alkaline Phosphatase Lactate Dehydrogenase C-Reactive Protein Total Protein Albumin Triglycerides Lipase Arterial Blood Glucose Arterial Blood Ionized Calcium Urine WBC (Auto) Coronavirus (PCR) SARS-CoV-2 IgG Ab Crossmatch 06/04/20 06/04/20 06/04/20 19:01 20:53 23:41 WBC RBC 3.18 L Hgb 10.8 L Hct 31.8 L MCV 100 H MCH 34 H MCHC RDW Lymph % (Auto) [place]es % (Auto) Lymph # (Auto) [place]es # (Auto) Baso # (Auto) Seg Neutrophils % Seg Neuts % (Manual) 86.0 H Lymphocytes % (Manual) 10.0 L Nucleated RBC % 1.0 H Seg Neutrophils # Seg Neutrophils # Man 8.5 H Lymphocytes # (Manual) 1.0 L Monocytes # (Manual) Eosinophils # (Manual) PT INR APTT D-Dimer Heparin Anti-Xa Level ABG pH POC ABG pCO2 POC ABG pO2 ABG pO2 ABG HCO3 ABG O2 Saturation ABG Base Excess ABG Hemoglobin ABG Oxyhemoglobin ABG Sodium ABG Potassium ABG Chloride ABG Glucose Oxyhemoglobin Carboxyhemoglobin Sodium Potassium 3.4 L D Chloride 96.5 L Carbon Dioxide 41 H* BUN 27 H Creatinine 0.5 L Glucose 173 H POC Glucose 217 H Lactic Acid Calcium Magnesium Ferritin Total Bilirubin Direct Bilirubin AST ALT Alkaline Phosphatase Lactate Dehydrogenase C-Reactive Protein Total Protein Albumin Triglycerides Lipase Arterial Blood Glucose Arterial Blood Ionized Calcium Urine WBC (Auto) Coronavirus (PCR) SARS-CoV-2 IgG Ab Crossmatch 06/05/20 06/05/20 06/05/20 06:05 11:54 12:35 WBC RBC Hgb Hct MCV MCH MCHC RDW Lymph % (Auto) [place]es % (Auto) Lymph # (Auto) [place]es # (Auto) Baso # (Auto) Seg Neutrophils % Seg Neuts % (Manual) Lymphocytes % (Manual) Nucleated RBC % Seg Neutrophils # Seg Neutrophils # Man Lymphocytes # (Manual) Monocytes # (Manual) Eosinophils # (Manual) PT INR APTT D-Dimer Heparin Anti-Xa Level ABG pH POC ABG pCO2 POC ABG pO2 ABG pO2 127.9 H ABG HCO3 41.1 H ABG O2 Saturation ABG Base Excess 13.0 H ABG Hemoglobin 13.4 L ABG Oxyhemoglobin ABG Sodium ABG Potassium ABG Chloride ABG Glucose Oxyhemoglobin Carboxyhemoglobin Sodium Potassium Chloride Carbon Dioxide BUN Creatinine Glucose POC Glucose 137 H 211 H Lactic Acid Calcium Magnesium Ferritin Total Bilirubin Direct Bilirubin AST ALT Alkaline Phosphatase Lactate Dehydrogenase C-Reactive Protein Total Protein Albumin Triglycerides Lipase Arterial Blood Glucose Arterial Blood Ionized Calcium Urine WBC (Auto) Coronavirus (PCR) SARS-CoV-2 IgG Ab Crossmatch 06/05/20 06/05/20 06/06/20 17:03 23:49 04:42 WBC RBC Hgb Hct MCV MCH MCHC RDW Lymph % (Auto) [place]es % (Auto) Lymph # (Auto) Mayes # (Auto) Baso # (Auto) Seg Neutrophils % Seg Neuts % (Manual) Lymphocytes % (Manual) Nucleated RBC % Seg Neutrophils # Seg Neutrophils # Man Lymphocytes # (Manual) Monocytes # (Manual) Eosinophils # (Manual) PT INR APTT D-Dimer Heparin Anti-Xa Level ABG pH POC ABG pCO2 56.1 H POC ABG pO2 52.5 L ABG pO2 ABG HCO3 ABG O2 Saturation ABG Base Excess ABG Hemoglobin 11.7 L ABG Oxyhemoglobin ABG Sodium ABG Potassium 3.3 L ABG Chloride 95.0 L ABG Glucose 156 H Oxyhemoglobin Carboxyhemoglobin Sodium Potassium Chloride Carbon Dioxide BUN Creatinine Glucose POC Glucose 159 H 194 H Lactic Acid Calcium Magnesium Ferritin Total Bilirubin Direct Bilirubin AST ALT Alkaline Phosphatase Lactate Dehydrogenase C-Reactive Protein Total Protein Albumin Triglycerides Lipase Arterial Blood Glucose 156 H Arterial Blood Ionized Calcium Urine WBC (Auto) Coronavirus (PCR) SARS-CoV-2 IgG Ab Crossmatch 06/06/20 06/06/20 06/06/20 05:57 12:06 17:38 WBC RBC Hgb Hct MCV MCH MCHC RDW Lymph % (Auto) Mayes % (Auto) Lymph # (Auto) Mayes # (Auto) Baso # (Auto) Seg Neutrophils % Seg Neuts % (Manual) Lymphocytes % (Manual) Nucleated RBC % Seg Neutrophils # Seg Neutrophils # Man Lymphocytes # (Manual) Monocytes # (Manual) Eosinophils # (Manual) PT INR APTT D-Dimer Heparin Anti-Xa Level ABG pH POC ABG pCO2 POC ABG pO2 ABG pO2 ABG HCO3 ABG O2 Saturation ABG Base Excess ABG Hemoglobin ABG Oxyhemoglobin ABG Sodium ABG Potassium ABG Chloride ABG Glucose Oxyhemoglobin Carboxyhemoglobin Sodium Potassium Chloride Carbon Dioxide BUN Creatinine Glucose POC Glucose 144 H 230 H 162 H Lactic Acid Calcium Magnesium Ferritin Total Bilirubin Direct Bilirubin AST ALT Alkaline Phosphatase Lactate Dehydrogenase C-Reactive Protein Total Protein Albumin Triglycerides Lipase Arterial Blood Glucose Arterial Blood Ionized Calcium Urine WBC (Auto) Coronavirus (PCR) SARS-CoV-2 IgG Ab Crossmatch 06/06/20 06/07/20 06/07/20 23:50 04:34 06:03 WBC RBC Hgb Hct MCV MCH MCHC RDW Lymph % (Auto) [place]es % (Auto) Lymph # (Auto) Mayes # (Auto) Baso # (Auto) Seg Neutrophils % Seg Neuts % (Manual) Lymphocytes % (Manual) Nucleated RBC % Seg Neutrophils # Seg Neutrophils # Man Lymphocytes # (Manual) Monocytes # (Manual) Eosinophils # (Manual) PT INR APTT D-Dimer Heparin Anti-Xa Level ABG pH 7.511 H POC ABG pCO2 53.5 H POC ABG pO2 114.5 H ABG pO2 ABG HCO3 ABG O2 Saturation ABG Base Excess ABG Hemoglobin 9.4 L ABG Oxyhemoglobin ABG Sodium 134.5 L ABG Potassium ABG Chloride 94.0 L ABG Glucose 186 H Oxyhemoglobin Carboxyhemoglobin Sodium Potassium Chloride Carbon Dioxide BUN Creatinine Glucose POC Glucose 181 H 155 H Lactic Acid Calcium Magnesium Ferritin Total Bilirubin Direct Bilirubin AST ALT Alkaline Phosphatase Lactate Dehydrogenase C-Reactive Protein Total Protein Albumin Triglycerides Lipase Arterial Blood Glucose 186 H Arterial Blood Ionized Calcium 4.5 L Urine WBC (Auto) Coronavirus (PCR) SARS-CoV-2 IgG Ab Crossmatch 06/07/20 06/07/20 06/07/20 13:41 14:58 14:58 WBC RBC 2.72 L Hgb 9.3 L Hct 27.2 L MCV 100 H MCH 34 H MCHC RDW Lymph % (Auto) [place] % (Auto) Lymph # (Auto) [place]es # (Auto) Baso # (Auto) Seg Neutrophils % Seg Neuts % (Manual) Lymphocytes % (Manual) Nucleated RBC % Seg Neutrophils # Seg Neutrophils # Man Lymphocytes # (Manual) Monocytes # (Manual) Eosinophils # (Manual) PT INR APTT D-Dimer Heparin Anti-Xa Level ABG pH POC ABG pCO2 POC ABG pO2 ABG pO2 ABG HCO3 ABG O2 Saturation ABG Base Excess ABG Hemoglobin ABG Oxyhemoglobin ABG Sodium ABG Potassium ABG Chloride ABG Glucose Oxyhemoglobin Carboxyhemoglobin Sodium Potassium Chloride 93.5 L Carbon Dioxide 39 H BUN 22 H Creatinine 0.4 L Glucose 188 H POC Glucose 201 H Lactic Acid Calcium Magnesium Ferritin Total Bilirubin Direct Bilirubin AST 61 H ALT 273 H Alkaline Phosphatase Lactate Dehydrogenase C-Reactive Protein Total Protein 5.9 L Albumin 2.7 L Triglycerides Lipase Arterial Blood Glucose Arterial Blood Ionized Calcium Urine WBC (Auto) Coronavirus (PCR) SARS-CoV-2 IgG Ab Crossmatch 06/07/20 06/08/20 06/08/20 23:18 05:31 12:07 WBC RBC Hgb Hct MCV MCH MCHC RDW Lymph % (Auto) [place] % (Auto) Lymph # (Auto) [place]es # (Auto) Baso # (Auto) Seg Neutrophils % Seg Neuts % (Manual) Lymphocytes % (Manual) Nucleated RBC % Seg Neutrophils # Seg Neutrophils # Man Lymphocytes # (Manual) Monocytes # (Manual) Eosinophils # (Manual) PT INR APTT D-Dimer Heparin Anti-Xa Level ABG pH POC ABG pCO2 POC ABG pO2 ABG pO2 ABG HCO3 ABG O2 Saturation ABG Base Excess ABG Hemoglobin ABG Oxyhemoglobin ABG Sodium ABG Potassium ABG Chloride ABG Glucose Oxyhemoglobin Carboxyhemoglobin Sodium Potassium Chloride Carbon Dioxide BUN Creatinine Glucose POC Glucose 214 H 129 H 179 H Lactic Acid Calcium Magnesium Ferritin Total Bilirubin Direct Bilirubin AST ALT Alkaline Phosphatase Lactate Dehydrogenase C-Reactive Protein Total Protein Albumin Triglycerides Lipase Arterial Blood Glucose Arterial Blood Ionized Calcium Urine WBC (Auto) Coronavirus (PCR) SARS-CoV-2 IgG Ab Crossmatch 06/08/20 06/08/20 06/09/20 18:18 23:35 05:42 WBC RBC Hgb Hct MCV MCH MCHC RDW Lymph % (Auto) [place] % (Auto) Lymph # (Auto) [place]es # (Auto) Baso # (Auto) Seg Neutrophils % Seg Neuts % (Manual) Lymphocytes % (Manual) Nucleated RBC % Seg Neutrophils # Seg Neutrophils # Man Lymphocytes # (Manual) Monocytes # (Manual) Eosinophils # (Manual) PT INR APTT D-Dimer Heparin Anti-Xa Level ABG pH POC ABG pCO2 POC ABG pO2 ABG pO2 ABG HCO3 ABG O2 Saturation ABG Base Excess ABG Hemoglobin ABG Oxyhemoglobin ABG Sodium ABG Potassium ABG Chloride ABG Glucose Oxyhemoglobin Carboxyhemoglobin Sodium Potassium Chloride Carbon Dioxide BUN Creatinine Glucose POC Glucose 172 H 177 H 137 H Lactic Acid Calcium Magnesium Ferritin Total Bilirubin Direct Bilirubin AST ALT Alkaline Phosphatase Lactate Dehydrogenase C-Reactive Protein Total Protein Albumin Triglycerides Lipase Arterial Blood Glucose Arterial Blood Ionized Calcium Urine WBC (Auto) Coronavirus (PCR) SARS-CoV-2 IgG Ab Crossmatch 06/09/20 06/09/20 06/09/20 06:20 07:55 07:55 WBC 12.4 H RBC 3.26 L Hgb 11.1 L Hct 33.4 L D MCV 102 H MCH 34 H MCHC RDW Lymph % (Auto) [place]es % (Auto) Lymph # (Auto) [place]es # (Auto) Baso # (Auto) Seg Neutrophils % Seg Neuts % (Manual) Lymphocytes % (Manual) Nucleated RBC % Seg Neutrophils # Seg Neutrophils # Man Lymphocytes # (Manual) Monocytes # (Manual) Eosinophils # (Manual) PT INR APTT D-Dimer Heparin Anti-Xa Level ABG pH 7.466 H POC ABG pCO2 50.7 H POC ABG pO2 53.0 L ABG pO2 ABG HCO3 ABG O2 Saturation ABG Base Excess ABG Hemoglobin ABG Oxyhemoglobin ABG Sodium ABG Potassium 2.9 L ABG Chloride 93.0 L ABG Glucose 138 H Oxyhemoglobin Carboxyhemoglobin Sodium Potassium 3.0 L Chloride 92.3 L Carbon Dioxide 37 H BUN 21 H Creatinine 0.6 L Glucose 120 H POC Glucose Lactic Acid Calcium Magnesium Ferritin Total Bilirubin Direct Bilirubin AST ALT Alkaline Phosphatase Lactate Dehydrogenase C-Reactive Protein Total Protein Albumin Triglycerides Lipase Arterial Blood Glucose 138 H Arterial Blood Ionized Calcium 4.5 L Urine WBC (Auto) Coronavirus (PCR) SARS-CoV-2 IgG Ab Crossmatch 06/09/20 06/09/2020 11:22 18:32 04:46 WBC RBC Hgb Hct MCV MCH MCHC RDW Lymph % (Auto) [place]es % (Auto) Lymph # (Auto) [place]es # (Auto) Baso # (Auto) Seg Neutrophils % Seg Neuts % (Manual) Lymphocytes % (Manual) Nucleated RBC % Seg Neutrophils # Seg Neutrophils # Man Lymphocytes # (Manual) Monocytes # (Manual) Eosinophils # (Manual) PT INR APTT D-Dimer Heparin Anti-Xa Level ABG pH 7.501 H POC ABG pCO2 POC ABG pO2 126.5 H ABG pO2 ABG HCO3 ABG O2 Saturation ABG Base Excess ABG Hemoglobin 10.3 L ABG Oxyhemoglobin ABG Sodium ABG Potassium ABG Chloride ABG Glucose 220 H Oxyhemoglobin Carboxyhemoglobin Sodium Potassium Chloride Carbon Dioxide BUN Creatinine Glucose POC Glucose 117 H 121 H Lactic Acid Calcium Magnesium Ferritin Total Bilirubin Direct Bilirubin AST ALT Alkaline Phosphatase Lactate Dehydrogenase C-Reactive Protein Total Protein Albumin Triglycerides Lipase Arterial Blood Glucose 220 H Arterial Blood Ionized Calcium Urine WBC (Auto) Coronavirus (PCR) SARS-CoV-2 IgG Ab Crossmatch 06/10/20 06/10/20 06/10/20 05:30 09:38 12:03 WBC RBC Hgb Hct MCV MCH MCHC RDW Lymph % (Auto) [place] % (Auto) Lymph # (Auto) [place]es # (Auto) Baso # (Auto) Seg Neutrophils % Seg Neuts % (Manual) Lymphocytes % (Manual) Nucleated RBC % Seg Neutrophils # Seg Neutrophils # Man Lymphocytes # (Manual) Monocytes # (Manual) Eosinophils # (Manual) PT INR APTT D-Dimer Heparin Anti-Xa Level ABG pH POC ABG pCO2 POC ABG pO2 ABG pO2 ABG HCO3 ABG O2 Saturation ABG Base Excess ABG Hemoglobin ABG Oxyhemoglobin ABG Sodium ABG Potassium ABG Chloride ABG Glucose Oxyhemoglobin Carboxyhemoglobin Sodium Potassium Chloride Carbon Dioxide BUN Creatinine Glucose POC Glucose 181 H 204 H Lactic Acid Calcium Magnesium Ferritin Total Bilirubin Direct Bilirubin AST ALT Alkaline Phosphatase Lactate Dehydrogenase C-Reactive Protein Total Protein Albumin Triglycerides 738 H Lipase Arterial Blood Glucose Arterial Blood Ionized Calcium Urine WBC (Auto) Coronavirus (PCR) SARS-CoV-2 IgG Ab Crossmatch 06/10/20 06/11/20 06/11/20 17:17 00:04 04:38 WBC RBC Hgb Hct MCV MCH MCHC RDW Lymph % (Auto) [place] % (Auto) Lymph # (Auto) [place]es # (Auto) Baso # (Auto) Seg Neutrophils % Seg Neuts % (Manual) Lymphocytes % (Manual) Nucleated RBC % Seg Neutrophils # Seg Neutrophils # Man Lymphocytes # (Manual) Monocytes # (Manual) Eosinophils # (Manual) PT INR APTT D-Dimer Heparin Anti-Xa Level ABG pH 7.479 H POC ABG pCO2 POC ABG pO2 76.7 L ABG pO2 ABG HCO3 ABG O2 Saturation ABG Base Excess ABG Hemoglobin 9.8 L ABG Oxyhemoglobin ABG Sodium 135.8 L ABG Potassium ABG Chloride ABG Glucose 238 H Oxyhemoglobin Carboxyhemoglobin Sodium Potassium Chloride Carbon Dioxide BUN Creatinine Glucose POC Glucose 156 H 178 H Lactic Acid Calcium Magnesium Ferritin Total Bilirubin Direct Bilirubin AST ALT Alkaline Phosphatase Lactate Dehydrogenase C-Reactive Protein Total Protein Albumin Triglycerides Lipase Arterial Blood Glucose 238 H Arterial Blood Ionized Calcium Urine WBC (Auto) Coronavirus (PCR) SARS-CoV-2 IgG Ab Crossmatch 06/11/20 06/11/20 06/11/20 05:21 06:52 11:50 WBC RBC Hgb Hct MCV MCH MCHC RDW Lymph % (Auto) [place] % (Auto) Lymph # (Auto) [place]es # (Auto) Baso # (Auto) Seg Neutrophils % Seg Neuts % (Manual) Lymphocytes % (Manual) Nucleated RBC % Seg Neutrophils # Seg Neutrophils # Man Lymphocytes # (Manual) Monocytes # (Manual) Eosinophils # (Manual) PT INR APTT D-Dimer Heparin Anti-Xa Level ABG pH POC ABG pCO2 POC ABG pO2 ABG pO2 ABG HCO3 ABG O2 Saturation ABG Base Excess ABG Hemoglobin ABG Oxyhemoglobin ABG Sodium ABG Potassium ABG Chloride ABG Glucose Oxyhemoglobin Carboxyhemoglobin Sodium Potassium Chloride Carbon Dioxide BUN Creatinine Glucose POC Glucose 215 H 187 H Lactic Acid Calcium Magnesium Ferritin Total Bilirubin Direct Bilirubin AST ALT Alkaline Phosphatase Lactate Dehydrogenase C-Reactive Protein Total Protein Albumin Triglycerides 331 H Lipase Arterial Blood Glucose Arterial Blood Ionized Calcium Urine WBC (Auto) Coronavirus (PCR) SARS-CoV-2 IgG Ab Crossmatch 06/11/20 06/11/20 06/12/20 17:49 23:35 04:52 WBC RBC Hgb Hct MCV MCH MCHC RDW Lymph % (Auto) [place] % (Auto) Lymph # (Auto) [place] # (Auto) Baso # (Auto) Seg Neutrophils % Seg Neuts % (Manual) Lymphocytes % (Manual) Nucleated RBC % Seg Neutrophils # Seg Neutrophils # Man Lymphocytes # (Manual) Monocytes # (Manual) Eosinophils # (Manual) PT INR APTT D-Dimer Heparin Anti-Xa Level ABG pH 7.486 H POC ABG pCO2 POC ABG pO2 ABG pO2 ABG HCO3 ABG O2 Saturation ABG Base Excess ABG Hemoglobin 9.4 L ABG Oxyhemoglobin ABG Sodium ABG Potassium 3.2 L ABG Chloride ABG Glucose 209 H Oxyhemoglobin Carboxyhemoglobin Sodium Potassium Chloride Carbon Dioxide BUN Creatinine Glucose POC Glucose 211 H 200 H Lactic Acid Calcium Magnesium Ferritin Total Bilirubin Direct Bilirubin AST ALT Alkaline Phosphatase Lactate Dehydrogenase C-Reactive Protein Total Protein Albumin Triglycerides Lipase Arterial Blood Glucose 209 H Arterial Blood Ionized Calcium Urine WBC (Auto) Coronavirus (PCR) SARS-CoV-2 IgG Ab Crossmatch 06/12/20 06/12/20 06/12/20 05:13 11:47 18:33 WBC RBC Hgb Hct MCV MCH MCHC RDW Lymph % (Auto) [place] % (Auto) Lymph # (Auto) [place]es # (Auto) Baso # (Auto) Seg Neutrophils % Seg Neuts % (Manual) Lymphocytes % (Manual) Nucleated RBC % Seg Neutrophils # Seg Neutrophils # Man Lymphocytes # (Manual) Monocytes # (Manual) Eosinophils # (Manual) PT INR APTT D-Dimer Heparin Anti-Xa Level ABG pH POC ABG pCO2 POC ABG pO2 ABG pO2 ABG HCO3 ABG O2 Saturation ABG Base Excess ABG Hemoglobin ABG Oxyhemoglobin ABG Sodium ABG Potassium ABG Chloride ABG Glucose Oxyhemoglobin Carboxyhemoglobin Sodium Potassium Chloride Carbon Dioxide BUN Creatinine Glucose POC Glucose 174 H 214 H 194 H Lactic Acid Calcium Magnesium Ferritin Total Bilirubin Direct Bilirubin AST ALT Alkaline Phosphatase Lactate Dehydrogenase C-Reactive Protein Total Protein Albumin Triglycerides Lipase Arterial Blood Glucose Arterial Blood Ionized Calcium Urine WBC (Auto) Coronavirus (PCR) SARS-CoV-2 IgG Ab Crossmatch 06/12/20 06/13/20 06/13/20 23:49 05:41 12:30 WBC RBC Hgb Hct MCV MCH MCHC RDW Lymph % (Auto) [place] % (Auto) Lymph # (Auto) [place] # (Auto) Baso # (Auto) Seg Neutrophils % Seg Neuts % (Manual) Lymphocytes % (Manual) Nucleated RBC % Seg Neutrophils # Seg Neutrophils # Man Lymphocytes # (Manual) Monocytes # (Manual) Eosinophils # (Manual) PT INR APTT D-Dimer Heparin Anti-Xa Level ABG pH POC ABG pCO2 POC ABG pO2 ABG pO2 ABG HCO3 ABG O2 Saturation ABG Base Excess ABG Hemoglobin ABG Oxyhemoglobin ABG Sodium ABG Potassium ABG Chloride ABG Glucose Oxyhemoglobin Carboxyhemoglobin Sodium Potassium Chloride Carbon Dioxide BUN Creatinine Glucose POC Glucose 160 H 150 H 181 H Lactic Acid Calcium Magnesium Ferritin Total Bilirubin Direct Bilirubin AST ALT Alkaline Phosphatase Lactate Dehydrogenase C-Reactive Protein Total Protein Albumin Triglycerides Lipase Arterial Blood Glucose Arterial Blood Ionized Calcium Urine WBC (Auto) Coronavirus (PCR) SARS-CoV-2 IgG Ab Crossmatch 06/13/20 06/13/20 06/13/20 14:14 17:48 23:27 WBC 12.8 H RBC 2.33 L Hgb 8.0 L Hct 23.3 L MCV 100 H MCH 34 H MCHC RDW 15.7 H Lymph % (Auto) [place] % (Auto) Lymph # (Auto) [place]es # (Auto) Baso # (Auto) Seg Neutrophils % Seg Neuts % (Manual) 85.0 H Lymphocytes % (Manual) 10.0 L Nucleated RBC % Seg Neutrophils # Seg Neutrophils # Man 10.9 H Lymphocytes # (Manual) Monocytes # (Manual) Eosinophils # (Manual) PT INR APTT D-Dimer Heparin Anti-Xa Level ABG pH POC ABG pCO2 POC ABG pO2 ABG pO2 ABG HCO3 ABG O2 Saturation ABG Base Excess ABG Hemoglobin ABG Oxyhemoglobin ABG Sodium ABG Potassium ABG Chloride ABG Glucose Oxyhemoglobin Carboxyhemoglobin Sodium Potassium Chloride Carbon Dioxide BUN Creatinine Glucose POC Glucose 173 H 154 H Lactic Acid Calcium Magnesium Ferritin Total Bilirubin Direct Bilirubin AST ALT Alkaline Phosphatase Lactate Dehydrogenase C-Reactive Protein Total Protein Albumin Triglycerides Lipase Arterial Blood Glucose Arterial Blood Ionized Calcium Urine WBC (Auto) Coronavirus (PCR) SARS-CoV-2 IgG Ab Crossmatch 06/14/20 06/14/20 06/14/20 03:58 05:21 07:15 WBC 26.2 H RBC 2.97 L Hgb 9.7 L Hct 29.9 L D MCV 101 H MCH 33 H MCHC RDW 15.3 H Lymph % (Auto) [place] % (Auto) Lymph # (Auto) [place]es # (Auto) Baso # (Auto) Seg Neutrophils % Seg Neuts % (Manual) 79.0 H Lymphocytes % (Manual) 5.0 L Nucleated RBC % 3.0 H Seg Neutrophils # Seg Neutrophils # Man 20.7 H Lymphocytes # (Manual) Monocytes # (Manual) 1.3 H Eosinophils # (Manual) PT INR APTT D-Dimer Heparin Anti-Xa Level ABG pH POC ABG pCO2 51.5 H POC ABG pO2 70.0 L ABG pO2 ABG HCO3 ABG O2 Saturation ABG Base Excess ABG Hemoglobin 10.1 L ABG Oxyhemoglobin ABG Sodium 131.5 L ABG Potassium 3.1 L ABG Chloride 93.0 L ABG Glucose 188 H Oxyhemoglobin Carboxyhemoglobin Sodium Potassium Chloride Carbon Dioxide BUN Creatinine Glucose POC Glucose 147 H Lactic Acid Calcium Magnesium Ferritin Total Bilirubin Direct Bilirubin AST ALT Alkaline Phosphatase Lactate Dehydrogenase C-Reactive Protein Total Protein Albumin Triglycerides Lipase Arterial Blood Glucose 188 H Arterial Blood Ionized Calcium Urine WBC (Auto) Coronavirus (PCR) SARS-CoV-2 IgG Ab Crossmatch 06/14/20 06/14/20 06/14/20 07:15 11:30 11:50 WBC RBC Hgb Hct MCV MCH MCHC RDW Lymph % (Auto) [place]es % (Auto) Lymph # (Auto) [place]es # (Auto) Baso # (Auto) Seg Neutrophils % Seg Neuts % (Manual) Lymphocytes % (Manual) Nucleated RBC % Seg Neutrophils # Seg Neutrophils # Man Lymphocytes # (Manual) Monocytes # (Manual) Eosinophils # (Manual) PT INR APTT D-Dimer Heparin Anti-Xa Level ABG pH POC ABG pCO2 POC ABG pO2 ABG pO2 ABG HCO3 ABG O2 Saturation ABG Base Excess ABG Hemoglobin ABG Oxyhemoglobin ABG Sodium ABG Potassium ABG Chloride ABG Glucose Oxyhemoglobin Carboxyhemoglobin Sodium 135 L Potassium 3.5 L Chloride 90.4 L Carbon Dioxide 38 H BUN Creatinine 0.5 L Glucose 190 H POC Glucose 176 H Lactic Acid Calcium Magnesium Ferritin 1496.0 H Total Bilirubin Direct Bilirubin AST ALT 81 H Alkaline Phosphatase Lactate Dehydrogenase C-Reactive Protein Total Protein Albumin 2.9 L Triglycerides Lipase Arterial Blood Glucose Arterial Blood Ionized Calcium Urine WBC (Auto) Coronavirus (PCR) SARS-CoV-2 IgG Ab Crossmatch 06/14/20 06/15/20 06/15/20 23:31 04:00 05:00 WBC RBC Hgb Hct MCV MCH MCHC RDW Lymph % (Auto) [place]es % (Auto) Lymph # (Auto) [place]es # (Auto) Baso # (Auto) Seg Neutrophils % Seg Neuts % (Manual) Lymphocytes % (Manual) Nucleated RBC % Seg Neutrophils # Seg Neutrophils # Man Lymphocytes # (Manual) Monocytes # (Manual) Eosinophils # (Manual) PT INR APTT D-Dimer Heparin Anti-Xa Level ABG pH POC ABG pCO2 POC ABG pO2 ABG pO2 ABG HCO3 ABG O2 Saturation ABG Base Excess ABG Hemoglobin ABG Oxyhemoglobin ABG Sodium ABG Potassium ABG Chloride ABG Glucose Oxyhemoglobin Carboxyhemoglobin Sodium 133 L Potassium Chloride 91.1 L Carbon Dioxide 34 H BUN Creatinine 0.4 L Glucose 159 H POC Glucose 200 H Lactic Acid Calcium Magnesium Ferritin Total Bilirubin 2.00 H Direct Bilirubin AST 47 H ALT 77 H Alkaline Phosphatase Lactate Dehydrogenase C-Reactive Protein Total Protein Albumin 2.6 L Triglycerides 152 H Lipase Arterial Blood Glucose Arterial Blood Ionized Calcium Urine WBC (Auto) Coronavirus (PCR) SARS-CoV-2 IgG Ab Crossmatch 06/15/20 06/15/20 06/15/20 05:35 06:27 11:38 WBC RBC Hgb Hct MCV MCH MCHC RDW Lymph % (Auto) [place] % (Auto) Lymph # (Auto) [place]es # (Auto) Baso # (Auto) Seg Neutrophils % Seg Neuts % (Manual) Lymphocytes % (Manual) Nucleated RBC % Seg Neutrophils # Seg Neutrophils # Man Lymphocytes # (Manual) Monocytes # (Manual) Eosinophils # (Manual) PT INR APTT D-Dimer Heparin Anti-Xa Level ABG pH POC ABG pCO2 61.0 H POC ABG pO2 67.9 L ABG pO2 ABG HCO3 ABG O2 Saturation ABG Base Excess ABG Hemoglobin 10.4 L ABG Oxyhemoglobin ABG Sodium 132.7 L ABG Potassium 3.3 L ABG Chloride 92.0 L ABG Glucose 158 H Oxyhemoglobin Carboxyhemoglobin Sodium Potassium Chloride Carbon Dioxide BUN Creatinine Glucose POC Glucose 148 H 197 H Lactic Acid Calcium Magnesium Ferritin Total Bilirubin Direct Bilirubin AST ALT Alkaline Phosphatase Lactate Dehydrogenase C-Reactive Protein Total Protein Albumin Triglycerides Lipase Arterial Blood Glucose 158 H Arterial Blood Ionized Calcium Urine WBC (Auto) Coronavirus (PCR) SARS-CoV-2 IgG Ab Crossmatch 06/15/20 06/15/20 06/16/20 17:29 Unknown 00:01 WBC 20.7 H RBC 2.57 L Hgb 8.9 L Hct 25.8 L MCV 101 H MCH 35 H MCHC 35 H RDW 16.0 H Lymph % (Auto) [place]es % (Auto) Lymph # (Auto) [place]es # (Auto) Baso # (Auto) Seg Neutrophils % Seg Neuts % (Manual) 83.0 H Lymphocytes % (Manual) 8.0 L Nucleated RBC % Seg Neutrophils # Seg Neutrophils # Man 17.2 H Lymphocytes # (Manual) Monocytes # (Manual) 1.2 H Eosinophils # (Manual) PT INR APTT D-Dimer Heparin Anti-Xa Level ABG pH POC ABG pCO2 POC ABG pO2 ABG pO2 ABG HCO3 ABG O2 Saturation ABG Base Excess ABG Hemoglobin ABG Oxyhemoglobin ABG Sodium ABG Potassium ABG Chloride ABG Glucose Oxyhemoglobin Carboxyhemoglobin Sodium Potassium Chloride Carbon Dioxide BUN Creatinine Glucose POC Glucose 231 H 257 H Lactic Acid Calcium Magnesium Ferritin Total Bilirubin Direct Bilirubin AST ALT Alkaline Phosphatase Lactate Dehydrogenase C-Reactive Protein Total Protein Albumin Triglycerides Lipase Arterial Blood Glucose Arterial Blood Ionized Calcium Urine WBC (Auto) Coronavirus (PCR) SARS-CoV-2 IgG Ab Crossmatch 06/16/20 06/16/20 06/16/20 04:00 04:00 05:22 WBC 13.8 H RBC 2.03 L Hgb 7.6 L Hct 20.7 L MCV 102 H MCH 37 H MCHC 37 H RDW 16.2 H Lymph % (Auto) 4.4 L [place]es % (Auto) Lymph # (Auto) 0.6 L [place]es # (Auto) Baso # (Auto) Seg Neutrophils % Seg Neuts % (Manual) Lymphocytes % (Manual) Nucleated RBC % Seg Neutrophils # 12.7 H Seg Neutrophils # Man Lymphocytes # (Manual) Monocytes # (Manual) Eosinophils # (Manual) PT INR APTT D-Dimer Heparin Anti-Xa Level ABG pH POC ABG pCO2 POC ABG pO2 ABG pO2 ABG HCO3 ABG O2 Saturation ABG Base Excess ABG Hemoglobin ABG Oxyhemoglobin ABG Sodium ABG Potassium ABG Chloride ABG Glucose Oxyhemoglobin Carboxyhemoglobin Sodium 130 L Potassium Chloride 88.9 L Carbon Dioxide 36 H BUN Creatinine 0.3 L Glucose 276 H POC Glucose 250 H Lactic Acid Calcium Magnesium Ferritin Total Bilirubin Direct Bilirubin AST ALT Alkaline Phosphatase Lactate Dehydrogenase C-Reactive Protein Total Protein Albumin Triglycerides Lipase Arterial Blood Glucose Arterial Blood Ionized Calcium Urine WBC (Auto) Coronavirus (PCR) SARS-CoV-2 IgG Ab Crossmatch 06/16/20 06/16/20 06/17/20 12:44 18:18 00:39 WBC RBC Hgb Hct MCV MCH MCHC RDW Lymph % (Auto) [place]es % (Auto) Lymph # (Auto) [place]es # (Auto) Baso # (Auto) Seg Neutrophils % Seg Neuts % (Manual) Lymphocytes % (Manual) Nucleated RBC % Seg Neutrophils # Seg Neutrophils # Man Lymphocytes # (Manual) Monocytes # (Manual) Eosinophils # (Manual) PT INR APTT D-Dimer Heparin Anti-Xa Level ABG pH POC ABG pCO2 POC ABG pO2 ABG pO2 ABG HCO3 ABG O2 Saturation ABG Base Excess ABG Hemoglobin ABG Oxyhemoglobin ABG Sodium ABG Potassium ABG Chloride ABG Glucose Oxyhemoglobin Carboxyhemoglobin Sodium Potassium Chloride Carbon Dioxide BUN Creatinine Glucose POC Glucose 279 H 239 H 247 H Lactic Acid Calcium Magnesium Ferritin Total Bilirubin Direct Bilirubin AST ALT Alkaline Phosphatase Lactate Dehydrogenase C-Reactive Protein Total Protein Albumin Triglycerides Lipase Arterial Blood Glucose Arterial Blood Ionized Calcium Urine WBC (Auto) Coronavirus (PCR) SARS-CoV-2 IgG Ab Crossmatch 06/17/20 06/17/20 06/17/20 03:40 04:08 10:54 WBC RBC Hgb Hct MCV MCH MCHC RDW Lymph % (Auto) [place]es % (Auto) Lymph # (Auto) [place]es # (Auto) Baso # (Auto) Seg Neutrophils % Seg Neuts % (Manual) Lymphocytes % (Manual) Nucleated RBC % Seg Neutrophils # Seg Neutrophils # Man Lymphocytes # (Manual) Monocytes # (Manual) Eosinophils # (Manual) PT INR APTT D-Dimer Heparin Anti-Xa Level ABG pH POC ABG pCO2 65.7 H POC ABG pO2 ABG pO2 ABG HCO3 ABG O2 Saturation ABG Base Excess ABG Hemoglobin 11.9 L ABG Oxyhemoglobin ABG Sodium ABG Potassium ABG Chloride 93.0 L ABG Glucose 244 H Oxyhemoglobin Carboxyhemoglobin Sodium Potassium Chloride Carbon Dioxide BUN Creatinine Glucose POC Glucose 221 H 248 H Lactic Acid Calcium Magnesium Ferritin Total Bilirubin Direct Bilirubin AST ALT Alkaline Phosphatase Lactate Dehydrogenase C-Reactive Protein Total Protein Albumin Triglycerides Lipase Arterial Blood Glucose 244 H Arterial Blood Ionized Calcium Urine WBC (Auto) Coronavirus (PCR) SARS-CoV-2 IgG Ab Crossmatch 06/17/20 06/17/20 06/17/20 17:47 23:11 23:29 WBC RBC Hgb Hct MCV MCH MCHC RDW Lymph % (Auto) [place]es % (Auto) Lymph # (Auto) [place]es # (Auto) Baso # (Auto) Seg Neutrophils % Seg Neuts % (Manual) Lymphocytes % (Manual) Nucleated RBC % Seg Neutrophils # Seg Neutrophils # Man Lymphocytes # (Manual) Monocytes # (Manual) Eosinophils # (Manual) PT INR APTT D-Dimer Heparin Anti-Xa Level ABG pH POC ABG pCO2 85.2 H POC ABG pO2 48.4 L ABG pO2 ABG HCO3 ABG O2 Saturation ABG Base Excess ABG Hemoglobin 8.0 L ABG Oxyhemoglobin ABG Sodium ABG Potassium ABG Chloride 95.0 L ABG Glucose 292 H Oxyhemoglobin Carboxyhemoglobin Sodium Potassium Chloride Carbon Dioxide BUN Creatinine Glucose POC Glucose 245 H 252 H Lactic Acid Calcium Magnesium Ferritin Total Bilirubin Direct Bilirubin AST ALT Alkaline Phosphatase Lactate Dehydrogenase C-Reactive Protein Total Protein Albumin Triglycerides Lipase Arterial Blood Glucose 292 H Arterial Blood Ionized Calcium Urine WBC (Auto) Coronavirus (PCR) SARS-CoV-2 IgG Ab Crossmatch 06/18/20 06/18/20 06/18/20 03:14 05:34 11:47 WBC RBC Hgb Hct MCV MCH MCHC RDW Lymph % (Auto) [place]es % (Auto) Lymph # (Auto) [place]es # (Auto) Baso # (Auto) Seg Neutrophils % Seg Neuts % (Manual) Lymphocytes % (Manual) Nucleated RBC % Seg Neutrophils # Seg Neutrophils # Man Lymphocytes # (Manual) Monocytes # (Manual) Eosinophils # (Manual) PT INR APTT D-Dimer Heparin Anti-Xa Level ABG pH POC ABG pCO2 65.4 H POC ABG pO2 160.7 H ABG pO2 ABG HCO3 ABG O2 Saturation ABG Base Excess ABG Hemoglobin 7.8 L ABG Oxyhemoglobin ABG Sodium ABG Potassium ABG Chloride 95.0 L ABG Glucose 251 H Oxyhemoglobin Carboxyhemoglobin Sodium Potassium Chloride Carbon Dioxide BUN Creatinine Glucose POC Glucose 243 H 263 H Lactic Acid Calcium Magnesium Ferritin Total Bilirubin Direct Bilirubin AST ALT Alkaline Phosphatase Lactate Dehydrogenase C-Reactive Protein Total Protein Albumin Triglycerides Lipase Arterial Blood Glucose 251 H Arterial Blood Ionized Calcium Urine WBC (Auto) Coronavirus (PCR) SARS-CoV-2 IgG Ab Crossmatch 06/18/20 06/18/20 06/19/20 17:31 23:33 04:32 WBC RBC Hgb Hct MCV MCH MCHC RDW Lymph % (Auto) [place]es % (Auto) Lymph # (Auto) [place]es # (Auto) Baso # (Auto) Seg Neutrophils % Seg Neuts % (Manual) Lymphocytes % (Manual) Nucleated RBC % Seg Neutrophils # Seg Neutrophils # Man Lymphocytes # (Manual) Monocytes # (Manual) Eosinophils # (Manual) PT INR APTT D-Dimer Heparin Anti-Xa Level ABG pH POC ABG pCO2 83.1 H POC ABG pO2 65.8 L ABG pO2 ABG HCO3 ABG O2 Saturation ABG Base Excess ABG Hemoglobin 8.9 L ABG Oxyhemoglobin ABG Sodium ABG Potassium ABG Chloride 96.0 L ABG Glucose 297 H Oxyhemoglobin Carboxyhemoglobin Sodium Potassium Chloride Carbon Dioxide BUN Creatinine Glucose POC Glucose 286 H 238 H Lactic Acid Calcium Magnesium Ferritin Total Bilirubin Direct Bilirubin AST ALT Alkaline Phosphatase Lactate Dehydrogenase C-Reactive Protein Total Protein Albumin Triglycerides Lipase Arterial Blood Glucose 297 H Arterial Blood Ionized Calcium Urine WBC (Auto) Coronavirus (PCR) SARS-CoV-2 IgG Ab Crossmatch 06/19/20 06/19/20 06/19/20 05:55 11:20 17:12 WBC RBC Hgb Hct MCV MCH MCHC RDW Lymph % (Auto) [place] % (Auto) Lymph # (Auto) [place] # (Auto) Baso # (Auto) Seg Neutrophils % Seg Neuts % (Manual) Lymphocytes % (Manual) Nucleated RBC % Seg Neutrophils # Seg Neutrophils # Man Lymphocytes # (Manual) Monocytes # (Manual) Eosinophils # (Manual) PT INR APTT D-Dimer Heparin Anti-Xa Level ABG pH POC ABG pCO2 POC ABG pO2 ABG pO2 ABG HCO3 ABG O2 Saturation ABG Base Excess ABG Hemoglobin ABG Oxyhemoglobin ABG Sodium ABG Potassium ABG Chloride ABG Glucose Oxyhemoglobin Carboxyhemoglobin Sodium Potassium Chloride Carbon Dioxide BUN Creatinine Glucose POC Glucose 274 H 282 H 298 H Lactic Acid Calcium Magnesium Ferritin Total Bilirubin Direct Bilirubin AST ALT Alkaline Phosphatase Lactate Dehydrogenase C-Reactive Protein Total Protein Albumin Triglycerides Lipase Arterial Blood Glucose Arterial Blood Ionized Calcium Urine WBC (Auto) Coronavirus (PCR) SARS-CoV-2 IgG Ab Crossmatch 06/19/20 06/20/2020 23:08 03:33 06:01 WBC RBC Hgb Hct MCV MCH MCHC RDW Lymph % (Auto) [place]es % (Auto) Lymph # (Auto) [place]es # (Auto) Baso # (Auto) Seg Neutrophils % Seg Neuts % (Manual) Lymphocytes % (Manual) Nucleated RBC % Seg Neutrophils # Seg Neutrophils # Man Lymphocytes # (Manual) Monocytes # (Manual) Eosinophils # (Manual) PT INR APTT D-Dimer Heparin Anti-Xa Level ABG pH POC ABG pCO2 POC ABG pO2 ABG pO2 69.9 L ABG HCO3 50.8 H ABG O2 Saturation ABG Base Excess 24.2 H ABG Hemoglobin 5.8 L ABG Oxyhemoglobin ABG Sodium ABG Potassium ABG Chloride ABG Glucose Oxyhemoglobin Carboxyhemoglobin Sodium Potassium Chloride Carbon Dioxide BUN Creatinine Glucose POC Glucose 293 H 182 H Lactic Acid Calcium Magnesium Ferritin Total Bilirubin Direct Bilirubin AST ALT Alkaline Phosphatase Lactate Dehydrogenase C-Reactive Protein Total Protein Albumin Triglycerides Lipase Arterial Blood Glucose Arterial Blood Ionized Calcium Urine WBC (Auto) Coronavirus (PCR) SARS-CoV-2 IgG Ab Crossmatch 06/20/20 06/20/20 06/20/20 11:47 17:46 23:37 WBC RBC Hgb Hct MCV MCH MCHC RDW Lymph % (Auto) [place]es % (Auto) Lymph # (Auto) [place]es # (Auto) Baso # (Auto) Seg Neutrophils % Seg Neuts % (Manual) Lymphocytes % (Manual) Nucleated RBC % Seg Neutrophils # Seg Neutrophils # Man Lymphocytes # (Manual) Monocytes # (Manual) Eosinophils # (Manual) PT INR APTT D-Dimer Heparin Anti-Xa Level ABG pH POC ABG pCO2 POC ABG pO2 ABG pO2 ABG HCO3 ABG O2 Saturation ABG Base Excess ABG Hemoglobin ABG Oxyhemoglobin ABG Sodium ABG Potassium ABG Chloride ABG Glucose Oxyhemoglobin Carboxyhemoglobin Sodium Potassium Chloride Carbon Dioxide BUN Creatinine Glucose POC Glucose 170 H 215 H 256 H Lactic Acid Calcium Magnesium Ferritin Total Bilirubin Direct Bilirubin AST ALT Alkaline Phosphatase Lactate Dehydrogenase C-Reactive Protein Total Protein Albumin Triglycerides Lipase Arterial Blood Glucose Arterial Blood Ionized Calcium Urine WBC (Auto) Coronavirus (PCR) SARS-CoV-2 IgG Ab Crossmatch 06/21/20 06/21/20 06/21/20 04:00 05:14 05:51 WBC RBC Hgb Hct MCV MCH MCHC RDW Lymph % (Auto) [place] % (Auto) Lymph # (Auto) [place] # (Auto) Baso # (Auto) Seg Neutrophils % Seg Neuts % (Manual) Lymphocytes % (Manual) Nucleated RBC % Seg Neutrophils # Seg Neutrophils # Man Lymphocytes # (Manual) Monocytes # (Manual) Eosinophils # (Manual) PT INR APTT D-Dimer Heparin Anti-Xa Level ABG pH 7.474 H POC ABG pCO2 POC ABG pO2 ABG pO2 ABG HCO3 52.1 H ABG O2 Saturation ABG Base Excess 23.3 H ABG Hemoglobin 5.3 L ABG Oxyhemoglobin ABG Sodium ABG Potassium ABG Chloride ABG Glucose Oxyhemoglobin 93.8 L Carboxyhemoglobin Sodium Potassium Chloride Carbon Dioxide BUN Creatinine Glucose POC Glucose 122 H 129 H Lactic Acid Calcium Magnesium Ferritin Total Bilirubin Direct Bilirubin AST ALT Alkaline Phosphatase Lactate Dehydrogenase C-Reactive Protein Total Protein Albumin Triglycerides Lipase Arterial Blood Glucose Arterial Blood Ionized Calcium Urine WBC (Auto) Coronavirus (PCR) SARS-CoV-2 IgG Ab Crossmatch 06/21/20 06/21/20 06/21/20 11:00 11:00 11:42 WBC 14.2 H RBC 1.85 L Hgb 6.2 L Hct 19.5 L* MCV 105 H MCH 34 H MCHC RDW 18.0 H Lymph % (Auto) [place]es % (Auto) Lymph # (Auto) [place]es # (Auto) Baso # (Auto) Seg Neutrophils % Seg Neuts % (Manual) Lymphocytes % (Manual) Nucleated RBC % Seg Neutrophils # Seg Neutrophils # Man Lymphocytes # (Manual) Monocytes # (Manual) Eosinophils # (Manual) PT INR APTT D-Dimer Heparin Anti-Xa Level ABG pH POC ABG pCO2 POC ABG pO2 ABG pO2 ABG HCO3 ABG O2 Saturation ABG Base Excess ABG Hemoglobin ABG Oxyhemoglobin ABG Sodium ABG Potassium ABG Chloride ABG Glucose Oxyhemoglobin Carboxyhemoglobin Sodium 147 H Potassium Chloride Carbon Dioxide 51 H* BUN 31 H Creatinine 0.5 L Glucose 224 H POC Glucose 217 H Lactic Acid Calcium Magnesium Ferritin Total Bilirubin Direct Bilirubin AST ALT Alkaline Phosphatase Lactate Dehydrogenase C-Reactive Protein Total Protein Albumin Triglycerides Lipase Arterial Blood Glucose Arterial Blood Ionized Calcium Urine WBC (Auto) Coronavirus (PCR) SARS-CoV-2 IgG Ab Crossmatch 12/14/20 12/14/20 12/14/20 14:18 14:30 18:36 WBC RBC Hgb Hct MCV MCH MCHC RDW Lymph % (Auto) [place] % (Auto) Lymph # (Auto) [place] # (Auto) Baso # (Auto) Seg Neutrophils % Seg Neuts % (Manual) Lymphocytes % (Manual) Nucleated RBC % Seg Neutrophils # Seg Neutrophils # Man Lymphocytes # (Manual) Monocytes # (Manual) Eosinophils # (Manual) PT 15.1 H INR 1.19 H APTT D-Dimer Heparin Anti-Xa Level ABG pH POC ABG pCO2 POC ABG pO2 ABG pO2 ABG HCO3 ABG O2 Saturation ABG Base Excess ABG Hemoglobin ABG Oxyhemoglobin ABG Sodium ABG Potassium ABG Chloride ABG Glucose Oxyhemoglobin Carboxyhemoglobin Sodium Potassium Chloride Carbon Dioxide BUN Creatinine Glucose POC Glucose 185 H Lactic Acid Calcium Magnesium Ferritin Total Bilirubin Direct Bilirubin AST ALT Alkaline Phosphatase Lactate Dehydrogenase C-Reactive Protein Total Protein Albumin Triglycerides Lipase Arterial Blood Glucose Arterial Blood Ionized Calcium Urine WBC (Auto) Coronavirus (PCR) SARS-CoV-2 IgG Ab Crossmatch See Detail 06/21/20 06/22/20 06/22/20 21:14 03:50 04:00 WBC RBC Hgb Hct MCV MCH MCHC RDW Lymph % (Auto) [place] % (Auto) Lymph # (Auto) [place] # (Auto) Baso # (Auto) Seg Neutrophils % Seg Neuts % (Manual) Lymphocytes % (Manual) Nucleated RBC % Seg Neutrophils # Seg Neutrophils # Man Lymphocytes # (Manual) Monocytes # (Manual) Eosinophils # (Manual) PT INR APTT D-Dimer Heparin Anti-Xa Level ABG pH 7.451 H POC ABG pCO2 POC ABG pO2 ABG pO2 ABG HCO3 47.5 H ABG O2 Saturation ABG Base Excess 22.0 H ABG Hemoglobin < 5.1 L ABG Oxyhemoglobin ABG Sodium ABG Potassium ABG Chloride ABG Glucose Oxyhemoglobin 94.1 L Carboxyhemoglobin Sodium 149 H Potassium 3.5 L Chloride Carbon Dioxide 42 H* D BUN 34 H Creatinine 0.4 L Glucose 219 H POC Glucose 250 H Lactic Acid Calcium Magnesium Ferritin Total Bilirubin Direct Bilirubin AST ALT Alkaline Phosphatase Lactate Dehydrogenase C-Reactive Protein Total Protein Albumin Triglycerides Lipase Arterial Blood Glucose Arterial Blood Ionized Calcium Urine WBC (Auto) Coronavirus (PCR) SARS-CoV-2 IgG Ab Crossmatch 06/22/20 06/22/20 06/22/20 12:16 14:29 17:56 WBC RBC Hgb Hct MCV MCH MCHC RDW Lymph % (Auto) [place] % (Auto) Lymph # (Auto) [place] # (Auto) Baso # (Auto) Seg Neutrophils % Seg Neuts % (Manual) Lymphocytes % (Manual) Nucleated RBC % Seg Neutrophils # Seg Neutrophils # Man Lymphocytes # (Manual) Monocytes # (Manual) Eosinophils # (Manual) PT 11.8 L INR APTT 23.5 L D-Dimer Heparin Anti-Xa Level ABG pH POC ABG pCO2 POC ABG pO2 ABG pO2 ABG HCO3 ABG O2 Saturation ABG Base Excess ABG Hemoglobin ABG Oxyhemoglobin ABG Sodium ABG Potassium ABG Chloride ABG Glucose Oxyhemoglobin Carboxyhemoglobin Sodium Potassium Chloride Carbon Dioxide BUN Creatinine Glucose POC Glucose 215 H 215 H Lactic Acid Calcium Magnesium Ferritin Total Bilirubin Direct Bilirubin AST ALT Alkaline Phosphatase Lactate Dehydrogenase C-Reactive Protein Total Protein Albumin Triglycerides Lipase Arterial Blood Glucose Arterial Blood Ionized Calcium Urine WBC (Auto) Coronavirus (PCR) SARS-CoV-2 IgG Ab Crossmatch 06/22/20 06/22/20 06/22/20 23:36 23:45 Unknown WBC 14.1 H RBC 2.70 L Hgb 8.9 L 8.9 L Hct 26.9 L 27.2 L D MCV 101 H MCH 33 H MCHC RDW 17.7 H Lymph % (Auto) [place] % (Auto) Lymph # (Auto) [place] # (Auto) Baso # (Auto) Seg Neutrophils % Seg Neuts % (Manual) 92.0 H Lymphocytes % (Manual) 5.0 L Nucleated RBC % Seg Neutrophils # Seg Neutrophils # Man 13.0 H Lymphocytes # (Manual) 0.7 L Monocytes # (Manual) Eosinophils # (Manual) PT INR APTT D-Dimer Heparin Anti-Xa Level ABG pH POC ABG pCO2 POC ABG pO2 ABG pO2 ABG HCO3 ABG O2 Saturation ABG Base Excess ABG Hemoglobin ABG Oxyhemoglobin ABG Sodium ABG Potassium ABG Chloride ABG Glucose Oxyhemoglobin Carboxyhemoglobin Sodium Potassium Chloride Carbon Dioxide BUN Creatinine Glucose POC Glucose 208 H Lactic Acid Calcium Magnesium Ferritin Total Bilirubin Direct Bilirubin AST ALT Alkaline Phosphatase Lactate Dehydrogenase C-Reactive Protein Total Protein Albumin Triglycerides Lipase Arterial Blood Glucose Arterial Blood Ionized Calcium Urine WBC (Auto) Coronavirus (PCR) SARS-CoV-2 IgG Ab Crossmatch 06/23/20 06/23/20 06/23/20 05:17 05:19 06:50 WBC RBC Hgb Hct MCV MCH MCHC RDW Lymph % (Auto) [place] % (Auto) Lymph # (Auto) [place] # (Auto) Baso # (Auto) Seg Neutrophils % Seg Neuts % (Manual) Lymphocytes % (Manual) Nucleated RBC % Seg Neutrophils # Seg Neutrophils # Man Lymphocytes # (Manual) Monocytes # (Manual) Eosinophils # (Manual) PT INR APTT D-Dimer Heparin Anti-Xa Level ABG pH POC ABG pCO2 69.7 H POC ABG pO2 63.3 L ABG pO2 ABG HCO3 ABG O2 Saturation ABG Base Excess ABG Hemoglobin 10.1 L ABG Oxyhemoglobin ABG Sodium ABG Potassium 3.3 L ABG Chloride ABG Glucose 226 H Oxyhemoglobin Carboxyhemoglobin Sodium Potassium 3.0 L Chloride Carbon Dioxide 41 H* BUN 26 H Creatinine 0.4 L Glucose 209 H POC Glucose 200 H Lactic Acid Calcium Magnesium Ferritin Total Bilirubin Direct Bilirubin AST ALT Alkaline Phosphatase Lactate Dehydrogenase C-Reactive Protein Total Protein Albumin 2.9 L Triglycerides Lipase Arterial Blood Glucose 226 H Arterial Blood Ionized Calcium Urine WBC (Auto) Coronavirus (PCR) SARS-CoV-2 IgG Ab Crossmatch 06/23/20 06/23/20 06/23/20 09:41 12:04 18:16 WBC RBC Hgb 9.1 L Hct 28.0 L MCV MCH MCHC RDW Lymph % (Auto) [place] % (Auto) Lymph # (Auto) [place] # (Auto) Baso # (Auto) Seg Neutrophils % Seg Neuts % (Manual) Lymphocytes % (Manual) Nucleated RBC % Seg Neutrophils # Seg Neutrophils # Man Lymphocytes # (Manual) Monocytes # (Manual) Eosinophils # (Manual) PT INR APTT D-Dimer Heparin Anti-Xa Level ABG pH POC ABG pCO2 POC ABG pO2 ABG pO2 ABG HCO3 ABG O2 Saturation ABG Base Excess ABG Hemoglobin ABG Oxyhemoglobin ABG Sodium ABG Potassium ABG Chloride ABG Glucose Oxyhemoglobin Carboxyhemoglobin Sodium Potassium Chloride Carbon Dioxide BUN Creatinine Glucose POC Glucose 146 H 162 H Lactic Acid Calcium Magnesium Ferritin Total Bilirubin Direct Bilirubin AST ALT Alkaline Phosphatase Lactate Dehydrogenase C-Reactive Protein Total Protein Albumin Triglycerides Lipase Arterial Blood Glucose Arterial Blood Ionized Calcium Urine WBC (Auto) Coronavirus (PCR) SARS-CoV-2 IgG Ab Crossmatch 06/23/20 06/23/20 06/24/20 23:24 23:41 02:39 WBC RBC Hgb 8.2 L 8.8 L Hct 24.9 L 26.8 L MCV MCH MCHC RDW Lymph % (Auto) [place] % (Auto) Lymph # (Auto) [place] # (Auto) Baso # (Auto) Seg Neutrophils % Seg Neuts % (Manual) Lymphocytes % (Manual) Nucleated RBC % Seg Neutrophils # Seg Neutrophils # Man Lymphocytes # (Manual) Monocytes # (Manual) Eosinophils # (Manual) PT INR APTT D-Dimer Heparin Anti-Xa Level ABG pH POC ABG pCO2 POC ABG pO2 ABG pO2 ABG HCO3 ABG O2 Saturation ABG Base Excess ABG Hemoglobin ABG Oxyhemoglobin ABG Sodium ABG Potassium ABG Chloride ABG Glucose Oxyhemoglobin Carboxyhemoglobin Sodium Potassium Chloride Carbon Dioxide BUN Creatinine Glucose POC Glucose 248 H Lactic Acid Calcium Magnesium Ferritin Total Bilirubin Direct Bilirubin AST ALT Alkaline Phosphatase Lactate Dehydrogenase C-Reactive Protein Total Protein Albumin Triglycerides Lipase Arterial Blood Glucose Arterial Blood Ionized Calcium Urine WBC (Auto) Coronavirus (PCR) SARS-CoV-2 IgG Ab Crossmatch 06/24/20 06/24/20 06/24/20 02:39 02:45 05:31 WBC RBC Hgb Hct MCV MCH MCHC RDW Lymph % (Auto) [place] % (Auto) Lymph # (Auto) [place] # (Auto) Baso # (Auto) Seg Neutrophils % Seg Neuts % (Manual) Lymphocytes % (Manual) Nucleated RBC % Seg Neutrophils # Seg Neutrophils # Man Lymphocytes # (Manual) Monocytes # (Manual) Eosinophils # (Manual) PT INR APTT D-Dimer Heparin Anti-Xa Level ABG pH POC ABG pCO2 66.9 H POC ABG pO2 109.7 H ABG pO2 ABG HCO3 ABG O2 Saturation ABG Base Excess ABG Hemoglobin 9.7 L ABG Oxyhemoglobin ABG Sodium 135.0 L ABG Potassium ABG Chloride 97.0 L ABG Glucose 277 H Oxyhemoglobin Carboxyhemoglobin Sodium 136 L Potassium Chloride 95.0 L Carbon Dioxide 34 H D BUN 24 H Creatinine 0.3 L Glucose 260 H POC Glucose 164 H Lactic Acid Calcium Magnesium Ferritin Total Bilirubin Direct Bilirubin AST ALT Alkaline Phosphatase Lactate Dehydrogenase C-Reactive Protein Total Protein 5.2 L Albumin 2.6 L Triglycerides Lipase Arterial Blood Glucose 277 H Arterial Blood Ionized Calcium Urine WBC (Auto) Coronavirus (PCR) SARS-CoV-2 IgG Ab Crossmatch 06/24/20 06/24/20 06/24/20 10:00 11:49 17:39 WBC RBC Hgb 8.9 L Hct 26.5 L MCV MCH MCHC RDW Lymph % (Auto) [place]es % (Auto) Lymph # (Auto) [place]es # (Auto) Baso # (Auto) Seg Neutrophils % Seg Neuts % (Manual) Lymphocytes % (Manual) Nucleated RBC % Seg Neutrophils # Seg Neutrophils # Man Lymphocytes # (Manual) Monocytes # (Manual) Eosinophils # (Manual) PT INR APTT D-Dimer Heparin Anti-Xa Level ABG pH POC ABG pCO2 POC ABG pO2 ABG pO2 ABG HCO3 ABG O2 Saturation ABG Base Excess ABG Hemoglobin ABG Oxyhemoglobin ABG Sodium ABG Potassium ABG Chloride ABG Glucose Oxyhemoglobin Carboxyhemoglobin Sodium Potassium Chloride Carbon Dioxide BUN Creatinine Glucose POC Glucose 198 H 223 H Lactic Acid Calcium Magnesium Ferritin Total Bilirubin Direct Bilirubin AST ALT Alkaline Phosphatase Lactate Dehydrogenase C-Reactive Protein Total Protein Albumin Triglycerides Lipase Arterial Blood Glucose Arterial Blood Ionized Calcium Urine WBC (Auto) Coronavirus (PCR) SARS-CoV-2 IgG Ab Crossmatch 06/24/20 06/25/20 06/25/20 23:56 02:16 04:08 WBC RBC Hgb Hct MCV MCH MCHC RDW Lymph % (Auto) [place] % (Auto) Lymph # (Auto) [place]es # (Auto) Baso # (Auto) Seg Neutrophils % Seg Neuts % (Manual) Lymphocytes % (Manual) Nucleated RBC % Seg Neutrophils # Seg Neutrophils # Man Lymphocytes # (Manual) Monocytes # (Manual) Eosinophils # (Manual) PT INR APTT D-Dimer Heparin Anti-Xa Level ABG pH 7.454 H POC ABG pCO2 56.9 H POC ABG pO2 61.0 L ABG pO2 ABG HCO3 ABG O2 Saturation ABG Base Excess ABG Hemoglobin ABG Oxyhemoglobin ABG Sodium 134.3 L ABG Potassium ABG Chloride 92.0 L ABG Glucose 246 H Oxyhemoglobin Carboxyhemoglobin Sodium 134 L Potassium Chloride 89.7 L Carbon Dioxide 36 H BUN Creatinine 0.3 L Glucose 254 H POC Glucose 225 H Lactic Acid Calcium Magnesium Ferritin Total Bilirubin Direct Bilirubin AST ALT Alkaline Phosphatase Lactate Dehydrogenase C-Reactive Protein Total Protein Albumin 2.9 L Triglycerides Lipase Arterial Blood Glucose 246 H Arterial Blood Ionized Calcium Urine WBC (Auto) Coronavirus (PCR) SARS-CoV-2 IgG Ab Crossmatch 06/25/20 06/25/20 06/25/20 05:44 11:35 17:33 WBC RBC Hgb Hct MCV MCH MCHC RDW Lymph % (Auto) [place]es % (Auto) Lymph # (Auto) [place]es # (Auto) Baso # (Auto) Seg Neutrophils % Seg Neuts % (Manual) Lymphocytes % (Manual) Nucleated RBC % Seg Neutrophils # Seg Neutrophils # Man Lymphocytes # (Manual) Monocytes # (Manual) Eosinophils # (Manual) PT INR APTT D-Dimer Heparin Anti-Xa Level ABG pH POC ABG pCO2 POC ABG pO2 ABG pO2 ABG HCO3 ABG O2 Saturation ABG Base Excess ABG Hemoglobin ABG Oxyhemoglobin ABG Sodium ABG Potassium ABG Chloride ABG Glucose Oxyhemoglobin Carboxyhemoglobin Sodium Potassium Chloride Carbon Dioxide BUN Creatinine Glucose POC Glucose 170 H 175 H 229 H Lactic Acid Calcium Magnesium Ferritin Total Bilirubin Direct Bilirubin AST ALT Alkaline Phosphatase Lactate Dehydrogenase C-Reactive Protein Total Protein Albumin Triglycerides Lipase Arterial Blood Glucose Arterial Blood Ionized Calcium Urine WBC (Auto) Coronavirus (PCR) SARS-CoV-2 IgG Ab Crossmatch 06/25/20 06/26/20 06/26/20 23:55 02:17 02:17 WBC RBC Hgb 10.0 L Hct 30.4 L MCV MCH MCHC RDW Lymph % (Auto) [place]es % (Auto) Lymph # (Auto) [place]es # (Auto) Baso # (Auto) Seg Neutrophils % Seg Neuts % (Manual) Lymphocytes % (Manual) Nucleated RBC % Seg Neutrophils # Seg Neutrophils # Man Lymphocytes # (Manual) Monocytes # (Manual) Eosinophils # (Manual) PT INR APTT D-Dimer Heparin Anti-Xa Level ABG pH POC ABG pCO2 POC ABG pO2 ABG pO2 ABG HCO3 ABG O2 Saturation ABG Base Excess ABG Hemoglobin ABG Oxyhemoglobin ABG Sodium ABG Potassium ABG Chloride ABG Glucose Oxyhemoglobin Carboxyhemoglobin Sodium 136 L Potassium Chloride 90.1 L Carbon Dioxide 39 H BUN Creatinine 0.2 L Glucose 232 H POC Glucose 192 H Lactic Acid Calcium Magnesium Ferritin Total Bilirubin Direct Bilirubin AST ALT Alkaline Phosphatase Lactate Dehydrogenase C-Reactive Protein Total Protein 6.1 L Albumin 2.9 L Triglycerides Lipase Arterial Blood Glucose Arterial Blood Ionized Calcium Urine WBC (Auto) Coronavirus (PCR) SARS-CoV-2 IgG Ab Crossmatch 06/26/20 06/26/20 06/26/20 04:15 04:49 05:28 WBC RBC Hgb Hct MCV MCH MCHC RDW Lymph % (Auto) [place]es % (Auto) Lymph # (Auto) [place]es # (Auto) Baso # (Auto) Seg Neutrophils % Seg Neuts % (Manual) Lymphocytes % (Manual) Nucleated RBC % Seg Neutrophils # Seg Neutrophils # Man Lymphocytes # (Manual) Monocytes # (Manual) Eosinophils # (Manual) PT INR APTT D-Dimer Heparin Anti-Xa Level ABG pH 7.453 H POC ABG pCO2 59.6 H POC ABG pO2 ABG pO2 ABG HCO3 ABG O2 Saturation ABG Base Excess ABG Hemoglobin 10.0 L ABG Oxyhemoglobin ABG Sodium 134.2 L ABG Potassium 3.3 L ABG Chloride 92.0 L ABG Glucose 305 H Oxyhemoglobin Carboxyhemoglobin Sodium Potassium Chloride Carbon Dioxide BUN Creatinine Glucose POC Glucose 234 H Lactic Acid Calcium Magnesium Ferritin Total Bilirubin Direct Bilirubin AST ALT Alkaline Phosphatase Lactate Dehydrogenase C-Reactive Protein Total Protein Albumin Triglycerides 203 H Lipase Arterial Blood Glucose 305 H Arterial Blood Ionized Calcium Urine WBC (Auto) Coronavirus (PCR) SARS-CoV-2 IgG Ab Crossmatch 06/26/20 06/26/20 06/26/20 11:58 17:58 21:32 WBC RBC Hgb Hct MCV MCH MCHC RDW Lymph % (Auto) [place]es % (Auto) Lymph # (Auto) [place]es # (Auto) Baso # (Auto) Seg Neutrophils % Seg Neuts % (Manual) Lymphocytes % (Manual) Nucleated RBC % Seg Neutrophils # Seg Neutrophils # Man Lymphocytes # (Manual) Monocytes # (Manual) Eosinophils # (Manual) PT INR APTT D-Dimer Heparin Anti-Xa Level ABG pH POC ABG pCO2 POC ABG pO2 ABG pO2 ABG HCO3 ABG O2 Saturation ABG Base Excess ABG Hemoglobin ABG Oxyhemoglobin ABG Sodium ABG Potassium ABG Chloride ABG Glucose Oxyhemoglobin Carboxyhemoglobin Sodium Potassium Chloride Carbon Dioxide BUN Creatinine Glucose POC Glucose 198 H 193 H 191 H Lactic Acid Calcium Magnesium Ferritin Total Bilirubin Direct Bilirubin AST ALT Alkaline Phosphatase Lactate Dehydrogenase C-Reactive Protein Total Protein Albumin Triglycerides Lipase Arterial Blood Glucose Arterial Blood Ionized Calcium Urine WBC (Auto) Coronavirus (PCR) SARS-CoV-2 IgG Ab Crossmatch 06/26/20 06/27/20 06/27/20 23:40 04:35 05:32 WBC RBC Hgb Hct MCV MCH MCHC RDW Lymph % (Auto) [place]es % (Auto) Lymph # (Auto) [place]es # (Auto) Baso # (Auto) Seg Neutrophils % Seg Neuts % (Manual) Lymphocytes % (Manual) Nucleated RBC % Seg Neutrophils # Seg Neutrophils # Man Lymphocytes # (Manual) Monocytes # (Manual) Eosinophils # (Manual) PT INR APTT D-Dimer Heparin Anti-Xa Level ABG pH 7.464 H POC ABG pCO2 60.8 H POC ABG pO2 ABG pO2 ABG HCO3 ABG O2 Saturation ABG Base Excess ABG Hemoglobin 10.1 L ABG Oxyhemoglobin ABG Sodium ABG Potassium 2.9 L ABG Chloride 92.0 L ABG Glucose 298 H Oxyhemoglobin Carboxyhemoglobin Sodium Potassium Chloride Carbon Dioxide BUN Creatinine Glucose POC Glucose 241 H 211 H Lactic Acid Calcium Magnesium Ferritin Total Bilirubin Direct Bilirubin AST ALT Alkaline Phosphatase Lactate Dehydrogenase C-Reactive Protein Total Protein Albumin Triglycerides Lipase Arterial Blood Glucose 298 H Arterial Blood Ionized Calcium Urine WBC (Auto) Coronavirus (PCR) SARS-CoV-2 IgG Ab Crossmatch 06/27/20 06/27/20 06/27/20 12:37 18:08 20:52 WBC RBC Hgb Hct MCV MCH MCHC RDW Lymph % (Auto) [place]es % (Auto) Lymph # (Auto) Mayes # (Auto) Baso # (Auto) Seg Neutrophils % Seg Neuts % (Manual) Lymphocytes % (Manual) Nucleated RBC % Seg Neutrophils # Seg Neutrophils # Man Lymphocytes # (Manual) Monocytes # (Manual) Eosinophils # (Manual) PT INR APTT D-Dimer Heparin Anti-Xa Level ABG pH POC ABG pCO2 POC ABG pO2 ABG pO2 ABG HCO3 ABG O2 Saturation ABG Base Excess ABG Hemoglobin ABG Oxyhemoglobin ABG Sodium ABG Potassium ABG Chloride ABG Glucose Oxyhemoglobin Carboxyhemoglobin Sodium Potassium Chloride Carbon Dioxide BUN Creatinine Glucose POC Glucose 182 H 197 H 195 H Lactic Acid Calcium Magnesium Ferritin Total Bilirubin Direct Bilirubin AST ALT Alkaline Phosphatase Lactate Dehydrogenase C-Reactive Protein Total Protein Albumin Triglycerides Lipase Arterial Blood Glucose Arterial Blood Ionized Calcium Urine WBC (Auto) Coronavirus (PCR) SARS-CoV-2 IgG Ab Crossmatch 06/27/20 06/28/20 06/28/20 Unknown 04:17 04:50 WBC RBC Hgb Hct MCV MCH MCHC RDW Lymph % (Auto) [place]es % (Auto) Lymph # (Auto) Mayes # (Auto) Baso # (Auto) Seg Neutrophils % Seg Neuts % (Manual) Lymphocytes % (Manual) Nucleated RBC % Seg Neutrophils # Seg Neutrophils # Man Lymphocytes # (Manual) Monocytes # (Manual) Eosinophils # (Manual) PT INR APTT D-Dimer Heparin Anti-Xa Level ABG pH POC ABG pCO2 58.6 H POC ABG pO2 60.1 L ABG pO2 ABG HCO3 ABG O2 Saturation ABG Base Excess ABG Hemoglobin 10.0 L ABG Oxyhemoglobin ABG Sodium 125.3 L ABG Potassium ABG Chloride 93.0 L ABG Glucose 308 H Oxyhemoglobin Carboxyhemoglobin Sodium Potassium 2.9 L* Chloride 93.4 L Carbon Dioxide 42 H* BUN Creatinine 0.3 L Glucose 211 H POC Glucose 252 H Lactic Acid Calcium 8.1 L Magnesium Ferritin Total Bilirubin Direct Bilirubin AST ALT Alkaline Phosphatase Lactate Dehydrogenase C-Reactive Protein Total Protein 5.1 L Albumin 2.4 L Triglycerides Lipase Arterial Blood Glucose 308 H Arterial Blood Ionized Calcium Urine WBC (Auto) Coronavirus (PCR) SARS-CoV-2 IgG Ab Crossmatch 06/28/20 06/28/20 06/28/20 06:35 06:35 11:36 WBC 18.9 H RBC 2.85 L Hgb 9.5 L Hct 28.4 L MCV 100 H MCH 33 H MCHC RDW 17.3 H Lymph % (Auto) Mayes % (Auto) Lymph # (Auto) Mayes # (Auto) Baso # (Auto) Seg Neutrophils % 88.6 H Seg Neuts % (Manual) 95.0 H Lymphocytes % (Manual) 1.0 L Nucleated RBC % Seg Neutrophils # 15.9 H Seg Neutrophils # Man 18.0 H Lymphocytes # (Manual) 0.2 L Monocytes # (Manual) Eosinophils # (Manual) PT INR APTT D-Dimer Heparin Anti-Xa Level ABG pH POC ABG pCO2 POC ABG pO2 ABG pO2 ABG HCO3 ABG O2 Saturation ABG Base Excess ABG Hemoglobin ABG Oxyhemoglobin ABG Sodium ABG Potassium ABG Chloride ABG Glucose Oxyhemoglobin Carboxyhemoglobin Sodium Potassium Chloride 94.2 L Carbon Dioxide 38 H BUN Creatinine 0.3 L Glucose 228 H POC Glucose 243 H Lactic Acid Calcium Magnesium Ferritin Total Bilirubin Direct Bilirubin AST ALT Alkaline Phosphatase Lactate Dehydrogenase C-Reactive Protein Total Protein 6.1 L Albumin 2.7 L Triglycerides Lipase Arterial Blood Glucose Arterial Blood Ionized Calcium Urine WBC (Auto) Coronavirus (PCR) SARS-CoV-2 IgG Ab Crossmatch 06/28/20 06/28/20 06/29/20 16:53 21:10 00:06 WBC RBC Hgb Hct MCV MCH MCHC RDW Lymph % (Auto) Mayes % (Auto) Lymph # (Auto) Mayes # (Auto) Baso # (Auto) Seg Neutrophils % Seg Neuts % (Manual) Lymphocytes % (Manual) Nucleated RBC % Seg Neutrophils # Seg Neutrophils # Man Lymphocytes # (Manual) Monocytes # (Manual) Eosinophils # (Manual) PT INR APTT D-Dimer Heparin Anti-Xa Level ABG pH POC ABG pCO2 POC ABG pO2 ABG pO2 ABG HCO3 ABG O2 Saturation ABG Base Excess ABG Hemoglobin ABG Oxyhemoglobin ABG Sodium ABG Potassium ABG Chloride ABG Glucose Oxyhemoglobin Carboxyhemoglobin Sodium Potassium Chloride Carbon Dioxide BUN Creatinine Glucose POC Glucose 211 H 195 H 200 H Lactic Acid Calcium Magnesium Ferritin Total Bilirubin Direct Bilirubin AST ALT Alkaline Phosphatase Lactate Dehydrogenase C-Reactive Protein Total Protein Albumin Triglycerides Lipase Arterial Blood Glucose Arterial Blood Ionized Calcium Urine WBC (Auto) Coronavirus (PCR) SARS-CoV-2 IgG Ab Crossmatch 06/29/20 06/29/20 06/29/20 03:11 04:00 04:00 WBC 18.8 H RBC 2.82 L Hgb 10.1 L Hct 28.5 L MCV 101 H MCH 36 H MCHC 36 H RDW 17.5 H Lymph % (Auto) 10.7 L Mayes % (Auto) Lymph # (Auto) Mayes # (Auto) 1.0 H Baso # (Auto) 0.3 H Seg Neutrophils % 82.2 H Seg Neuts % (Manual) Lymphocytes % (Manual) Nucleated RBC % Seg Neutrophils # 15.5 H Seg Neutrophils # Man Lymphocytes # (Manual) Monocytes # (Manual) Eosinophils # (Manual) PT INR APTT D-Dimer Heparin Anti-Xa Level ABG pH POC ABG pCO2 57.5 H POC ABG pO2 69.1 L ABG pO2 ABG HCO3 ABG O2 Saturation ABG Base Excess ABG Hemoglobin 10.2 L ABG Oxyhemoglobin 92.3 L ABG Sodium 130.7 L ABG Potassium 3.2 L ABG Chloride 93.0 L ABG Glucose 228 H Oxyhemoglobin Carboxyhemoglobin Sodium 134 L Potassium 3.3 L Chloride 89.5 L Carbon Dioxide 40 H BUN Creatinine 0.2 L Glucose 190 H POC Glucose Lactic Acid Calcium Magnesium Ferritin Total Bilirubin Direct Bilirubin AST < 5 L ALT < 5 L Alkaline Phosphatase Lactate Dehydrogenase C-Reactive Protein Total Protein 5.9 L Albumin 2.2 L Triglycerides Lipase Arterial Blood Glucose 228 H Arterial Blood Ionized Calcium Urine WBC (Auto) Coronavirus (PCR) SARS-CoV-2 IgG Ab Crossmatch 06/29/20 06/29/20 06/29/20 05:00 05:23 09:36 WBC RBC Hgb Hct MCV MCH MCHC RDW Lymph % (Auto) Mayes % (Auto) Lymph # (Auto) Mayes # (Auto) Baso # (Auto) Seg Neutrophils % Seg Neuts % (Manual) Lymphocytes % (Manual) Nucleated RBC % Seg Neutrophils # Seg Neutrophils # Man Lymphocytes # (Manual) Monocytes # (Manual) Eosinophils # (Manual) PT INR APTT D-Dimer Heparin Anti-Xa Level ABG pH POC ABG pCO2 POC ABG pO2 ABG pO2 ABG HCO3 ABG O2 Saturation ABG Base Excess ABG Hemoglobin ABG Oxyhemoglobin ABG Sodium ABG Potassium ABG Chloride ABG Glucose Oxyhemoglobin Carboxyhemoglobin Sodium Potassium Chloride Carbon Dioxide BUN Creatinine Glucose POC Glucose 165 H Lactic Acid Calcium Magnesium Ferritin Total Bilirubin Direct Bilirubin AST ALT Alkaline Phosphatase Lactate Dehydrogenase C-Reactive Protein Total Protein Albumin Triglycerides 1544 H 1799 H Lipase Arterial Blood Glucose Arterial Blood Ionized Calcium Urine WBC (Auto) Coronavirus (PCR) SARS-CoV-2 IgG Ab Crossmatch 06/29/20 06/29/20 06/29/20 09:36 12:02 18:00 WBC RBC Hgb Hct MCV MCH MCHC RDW Lymph % (Auto) [place]es % (Auto) Lymph # (Auto) Mayes # (Auto) Baso # (Auto) Seg Neutrophils % Seg Neuts % (Manual) Lymphocytes % (Manual) Nucleated RBC % Seg Neutrophils # Seg Neutrophils # Man Lymphocytes # (Manual) Monocytes # (Manual) Eosinophils # (Manual) PT INR APTT D-Dimer Heparin Anti-Xa Level ABG pH POC ABG pCO2 POC ABG pO2 ABG pO2 ABG HCO3 ABG O2 Saturation ABG Base Excess ABG Hemoglobin ABG Oxyhemoglobin ABG Sodium ABG Potassium ABG Chloride ABG Glucose Oxyhemoglobin Carboxyhemoglobin Sodium Potassium Chloride Carbon Dioxide BUN Creatinine Glucose POC Glucose 197 H 187 H Lactic Acid Calcium Magnesium Ferritin Total Bilirubin Direct Bilirubin AST ALT Alkaline Phosphatase Lactate Dehydrogenase C-Reactive Protein Total Protein Albumin Triglycerides Lipase 86 H Arterial Blood Glucose Arterial Blood Ionized Calcium Urine WBC (Auto) Coronavirus (PCR) SARS-CoV-2 IgG Ab Crossmatch 06/29/20 06/30/20 06/30/20 23:33 03:46 05:50 WBC RBC Hgb Hct MCV MCH MCHC RDW Lymph % (Auto) [place]es % (Auto) Lymph # (Auto) [place]es # (Auto) Baso # (Auto) Seg Neutrophils % Seg Neuts % (Manual) Lymphocytes % (Manual) Nucleated RBC % Seg Neutrophils # Seg Neutrophils # Man Lymphocytes # (Manual) Monocytes # (Manual) Eosinophils # (Manual) PT INR APTT D-Dimer Heparin Anti-Xa Level ABG pH 7.466 H POC ABG pCO2 57.3 H POC ABG pO2 66.1 L ABG pO2 ABG HCO3 ABG O2 Saturation ABG Base Excess ABG Hemoglobin 10.2 L ABG Oxyhemoglobin 92.3 L ABG Sodium 134.4 L ABG Potassium 3.2 L ABG Chloride 94.0 L ABG Glucose 178 H Oxyhemoglobin Carboxyhemoglobin Sodium Potassium Chloride Carbon Dioxide BUN Creatinine Glucose POC Glucose 170 H 170 H Lactic Acid Calcium Magnesium Ferritin Total Bilirubin Direct Bilirubin AST ALT Alkaline Phosphatase Lactate Dehydrogenase C-Reactive Protein Total Protein Albumin Triglycerides Lipase Arterial Blood Glucose 178 H Arterial Blood Ionized Calcium Urine WBC (Auto) Coronavirus (PCR) SARS-CoV-2 IgG Ab Crossmatch 06/30/20 06/30/20 06/30/20 07:00 07:00 12:04 WBC 15.6 H RBC 2.91 L Hgb 9.8 L Hct 29.7 L MCV 102 H MCH 34 H MCHC RDW 17.8 H Lymph % (Auto) Mayes % (Auto) Lymph # (Auto) Mayes # (Auto) Baso # (Auto) Seg Neutrophils % Seg Neuts % (Manual) Lymphocytes % (Manual) 5.0 L Nucleated RBC % Seg Neutrophils # Seg Neutrophils # Man 14.8 H Lymphocytes # (Manual) 0.8 L Monocytes # (Manual) Eosinophils # (Manual) PT INR APTT D-Dimer Heparin Anti-Xa Level ABG pH POC ABG pCO2 POC ABG pO2 ABG pO2 ABG HCO3 ABG O2 Saturation ABG Base Excess ABG Hemoglobin ABG Oxyhemoglobin ABG Sodium ABG Potassium ABG Chloride ABG Glucose Oxyhemoglobin Carboxyhemoglobin Sodium Potassium Chloride 93.3 L Carbon Dioxide 43 H* BUN Creatinine 0.3 L Glucose 260 H POC Glucose 245 H Lactic Acid Calcium Magnesium Ferritin Total Bilirubin Direct Bilirubin AST ALT Alkaline Phosphatase Lactate Dehydrogenase C-Reactive Protein Total Protein Albumin 2.8 L Triglycerides 452 H Lipase Arterial Blood Glucose Arterial Blood Ionized Calcium Urine WBC (Auto) Coronavirus (PCR) SARS-CoV-2 IgG Ab Crossmatch 06/30/20 07/01/20 07/01/20 17:32 00:02 05:02 WBC RBC Hgb Hct MCV MCH MCHC RDW Lymph % (Auto) Mayes % (Auto) Lymph # (Auto) Mayes # (Auto) Baso # (Auto) Seg Neutrophils % Seg Neuts % (Manual) Lymphocytes % (Manual) Nucleated RBC % Seg Neutrophils # Seg Neutrophils # Man Lymphocytes # (Manual) Monocytes # (Manual) Eosinophils # (Manual) PT INR APTT D-Dimer Heparin Anti-Xa Level ABG pH POC ABG pCO2 58.1 H POC ABG pO2 ABG pO2 ABG HCO3 ABG O2 Saturation ABG Base Excess ABG Hemoglobin 11.2 L ABG Oxyhemoglobin ABG Sodium 132.7 L ABG Potassium ABG Chloride 92.0 L ABG Glucose 238 H Oxyhemoglobin Carboxyhemoglobin Sodium Potassium Chloride Carbon Dioxide BUN Creatinine Glucose POC Glucose 209 H 208 H Lactic Acid Calcium Magnesium Ferritin Total Bilirubin Direct Bilirubin AST ALT Alkaline Phosphatase Lactate Dehydrogenase C-Reactive Protein Total Protein Albumin Triglycerides Lipase Arterial Blood Glucose 238 H Arterial Blood Ionized Calcium Urine WBC (Auto) Coronavirus (PCR) SARS-CoV-2 IgG Ab Crossmatch 07/01/20 07/01/20 07/01/20 06:16 06:41 06:41 WBC 18.1 H RBC 2.33 L Hgb 7.1 L Hct 21.3 L D MCV MCH MCHC RDW Lymph % (Auto) Mayes % (Auto) Lymph # (Auto) Mayes # (Auto) Baso # (Auto) Seg Neutrophils % Seg Neuts % (Manual) 82.0 H Lymphocytes % (Manual) 7.0 L Nucleated RBC % 1.0 H Seg Neutrophils # Seg Neutrophils # Man 14.8 H Lymphocytes # (Manual) Monocytes # (Manual) 1.1 H Eosinophils # (Manual) 0.5 H PT INR APTT D-Dimer Heparin Anti-Xa Level < 0.10 L ABG pH POC ABG pCO2 POC ABG pO2 ABG pO2 ABG HCO3 ABG O2 Saturation ABG Base Excess ABG Hemoglobin ABG Oxyhemoglobin ABG Sodium ABG Potassium ABG Chloride ABG Glucose Oxyhemoglobin Carboxyhemoglobin Sodium Potassium Chloride Carbon Dioxide BUN Creatinine Glucose POC Glucose 180 H Lactic Acid Calcium Magnesium Ferritin Total Bilirubin Direct Bilirubin AST ALT Alkaline Phosphatase Lactate Dehydrogenase C-Reactive Protein Total Protein Albumin Triglycerides Lipase Arterial Blood Glucose Arterial Blood Ionized Calcium Urine WBC (Auto) Coronavirus (PCR) SARS-CoV-2 IgG Ab Crossmatch 07/01/20 07/01/20 07/01/20 08:11 12:04 16:16 WBC RBC Hgb Hct MCV MCH MCHC RDW Lymph % (Auto) Mayes % (Auto) Lymph # (Auto) Mayes # (Auto) Baso # (Auto) Seg Neutrophils % Seg Neuts % (Manual) Lymphocytes % (Manual) Nucleated RBC % Seg Neutrophils # Seg Neutrophils # Man Lymphocytes # (Manual) Monocytes # (Manual) Eosinophils # (Manual) PT INR APTT D-Dimer Heparin Anti-Xa Level 1.02 H ABG pH POC ABG pCO2 POC ABG pO2 ABG pO2 ABG HCO3 ABG O2 Saturation ABG Base Excess ABG Hemoglobin ABG Oxyhemoglobin ABG Sodium ABG Potassium ABG Chloride ABG Glucose Oxyhemoglobin Carboxyhemoglobin Sodium 135 L Potassium 3.0 L Chloride 93.1 L Carbon Dioxide 40 H BUN Creatinine 0.3 L Glucose 140 H POC Glucose 223 H Lactic Acid Calcium Magnesium Ferritin Total Bilirubin Direct Bilirubin AST ALT Alkaline Phosphatase Lactate Dehydrogenase C-Reactive Protein Total Protein Albumin Triglycerides Lipase Arterial Blood Glucose Arterial Blood Ionized Calcium Urine WBC (Auto) Coronavirus (PCR) SARS-CoV-2 IgG Ab Crossmatch 07/01/20 07/01/20 07/02/20 17:09 23:19 00:56 WBC RBC Hgb Hct MCV MCH MCHC RDW Lymph % (Auto) [place]es % (Auto) Lymph # (Auto) [place]es # (Auto) Baso # (Auto) Seg Neutrophils % Seg Neuts % (Manual) Lymphocytes % (Manual) Nucleated RBC % Seg Neutrophils # Seg Neutrophils # Man Lymphocytes # (Manual) Monocytes # (Manual) Eosinophils # (Manual) PT INR APTT D-Dimer Heparin Anti-Xa Level 0.22 L ABG pH POC ABG pCO2 POC ABG pO2 ABG pO2 ABG HCO3 ABG O2 Saturation ABG Base Excess ABG Hemoglobin ABG Oxyhemoglobin ABG Sodium ABG Potassium ABG Chloride ABG Glucose Oxyhemoglobin Carboxyhemoglobin Sodium Potassium Chloride Carbon Dioxide BUN Creatinine Glucose POC Glucose 233 H 255 H Lactic Acid Calcium Magnesium Ferritin Total Bilirubin Direct Bilirubin AST ALT Alkaline Phosphatase Lactate Dehydrogenase C-Reactive Protein Total Protein Albumin Triglycerides Lipase Arterial Blood Glucose Arterial Blood Ionized Calcium Urine WBC (Auto) Coronavirus (PCR) SARS-CoV-2 IgG Ab Crossmatch 07/02/20 07/02/20 07/02/20 03:51 05:35 11:39 WBC RBC Hgb Hct MCV MCH MCHC RDW Lymph % (Auto) Mayes % (Auto) Lymph # (Auto) Mayes # (Auto) Baso # (Auto) Seg Neutrophils % Seg Neuts % (Manual) Lymphocytes % (Manual) Nucleated RBC % Seg Neutrophils # Seg Neutrophils # Man Lymphocytes # (Manual) Monocytes # (Manual) Eosinophils # (Manual) PT INR APTT D-Dimer Heparin Anti-Xa Level ABG pH POC ABG pCO2 54.9 H POC ABG pO2 52.1 L ABG pO2 ABG HCO3 ABG O2 Saturation ABG Base Excess ABG Hemoglobin 11.9 L ABG Oxyhemoglobin 82.8 L ABG Sodium 130.2 L ABG Potassium ABG Chloride 92.0 L ABG Glucose 249 H Oxyhemoglobin Carboxyhemoglobin 1.9 H Sodium Potassium Chloride Carbon Dioxide BUN Creatinine Glucose POC Glucose 205 H 235 H Lactic Acid Calcium Magnesium Ferritin Total Bilirubin Direct Bilirubin AST ALT Alkaline Phosphatase Lactate Dehydrogenase C-Reactive Protein Total Protein Albumin Triglycerides Lipase Arterial Blood Glucose 249 H Arterial Blood Ionized Calcium Urine WBC (Auto) Coronavirus (PCR) SARS-CoV-2 IgG Ab Crossmatch 07/02/20 07/02/20 07/02/20 16:08 16:08 17:54 WBC 19.8 H RBC 3.28 L Hgb 10.7 L D Hct 32.7 L D MCV 100 H MCH 33 H MCHC RDW 17.2 H Lymph % (Auto) [place]es % (Auto) Lymph # (Auto) Mayes # (Auto) Baso # (Auto) Seg Neutrophils % Seg Neuts % (Manual) Lymphocytes % (Manual) Nucleated RBC % Seg Neutrophils # Seg Neutrophils # Man Lymphocytes # (Manual) Monocytes # (Manual) Eosinophils # (Manual) PT INR APTT D-Dimer Heparin Anti-Xa Level ABG pH POC ABG pCO2 POC ABG pO2 ABG pO2 ABG HCO3 ABG O2 Saturation ABG Base Excess ABG Hemoglobin ABG Oxyhemoglobin ABG Sodium ABG Potassium ABG Chloride ABG Glucose Oxyhemoglobin Carboxyhemoglobin Sodium 136 L Potassium Chloride 92.4 L Carbon Dioxide 35 H BUN Creatinine 0.3 L Glucose 203 H POC Glucose 175 H Lactic Acid Calcium Magnesium Ferritin Total Bilirubin Direct Bilirubin AST ALT Alkaline Phosphatase Lactate Dehydrogenase C-Reactive Protein Total Protein Albumin Triglycerides Lipase Arterial Blood Glucose Arterial Blood Ionized Calcium Urine WBC (Auto) Coronavirus (PCR) SARS-CoV-2 IgG Ab Crossmatch 07/02/20 07/03/20 07/03/20 23:46 03:25 05:54 WBC RBC Hgb Hct MCV MCH MCHC RDW Lymph % (Auto) Mayes % (Auto) Lymph # (Auto) Mayes # (Auto) Baso # (Auto) Seg Neutrophils % Seg Neuts % (Manual) Lymphocytes % (Manual) Nucleated RBC % Seg Neutrophils # Seg Neutrophils # Man Lymphocytes # (Manual) Monocytes # (Manual) Eosinophils # (Manual) PT INR APTT D-Dimer Heparin Anti-Xa Level ABG pH 7.468 H POC ABG pCO2 51.5 H POC ABG pO2 ABG pO2 ABG HCO3 ABG O2 Saturation ABG Base Excess ABG Hemoglobin ABG Oxyhemoglobin ABG Sodium 130.2 L ABG Potassium ABG Chloride 91.0 L ABG Glucose 210 H Oxyhemoglobin Carboxyhemoglobin 1.6 H Sodium Potassium Chloride Carbon Dioxide BUN Creatinine Glucose POC Glucose 173 H 125 H Lactic Acid Calcium Magnesium Ferritin Total Bilirubin Direct Bilirubin AST ALT Alkaline Phosphatase Lactate Dehydrogenase C-Reactive Protein Total Protein Albumin Triglycerides Lipase Arterial Blood Glucose 210 H Arterial Blood Ionized Calcium Urine WBC (Auto) Coronavirus (PCR) SARS-CoV-2 IgG Ab Crossmatch 07/03/20 07/03/20 07/03/20 11:43 12:20 12:20 WBC 16.5 H RBC 3.13 L Hgb 10.4 L Hct 31.8 L MCV 102 H MCH 33 H MCHC RDW 17.2 H Lymph % (Auto) Mayes % (Auto) Lymph # (Auto) Mayes # (Auto) Baso # (Auto) Seg Neutrophils % Seg Neuts % (Manual) Lymphocytes % (Manual) Nucleated RBC % Seg Neutrophils # Seg Neutrophils # Man Lymphocytes # (Manual) Monocytes # (Manual) Eosinophils # (Manual) PT INR APTT D-Dimer Heparin Anti-Xa Level ABG pH POC ABG pCO2 POC ABG pO2 ABG pO2 ABG HCO3 ABG O2 Saturation ABG Base Excess ABG Hemoglobin ABG Oxyhemoglobin ABG Sodium ABG Potassium ABG Chloride ABG Glucose Oxyhemoglobin Carboxyhemoglobin Sodium 132 L Potassium Chloride 88.5 L Carbon Dioxide 37 H BUN Creatinine 0.3 L Glucose 230 H POC Glucose 223 H Lactic Acid Calcium Magnesium Ferritin Total Bilirubin Direct Bilirubin AST ALT Alkaline Phosphatase Lactate Dehydrogenase C-Reactive Protein Total Protein Albumin Triglycerides Lipase Arterial Blood Glucose Arterial Blood Ionized Calcium Urine WBC (Auto) Coronavirus (PCR) SARS-CoV-2 IgG Ab Crossmatch 07/03/20 07/03/20 07/04/20 17:24 21:41 00:54 WBC RBC Hgb Hct MCV MCH MCHC RDW Lymph % (Auto) Mayes % (Auto) Lymph # (Auto) Mayes # (Auto) Baso # (Auto) Seg Neutrophils % Seg Neuts % (Manual) Lymphocytes % (Manual) Nucleated RBC % Seg Neutrophils # Seg Neutrophils # Man Lymphocytes # (Manual) Monocytes # (Manual) Eosinophils # (Manual) PT INR APTT D-Dimer Heparin Anti-Xa Level ABG pH POC ABG pCO2 POC ABG pO2 ABG pO2 ABG HCO3 ABG O2 Saturation ABG Base Excess ABG Hemoglobin ABG Oxyhemoglobin ABG Sodium ABG Potassium ABG Chloride ABG Glucose Oxyhemoglobin Carboxyhemoglobin Sodium Potassium Chloride Carbon Dioxide BUN Creatinine Glucose POC Glucose 163 H 220 H 195 H Lactic Acid Calcium Magnesium Ferritin Total Bilirubin Direct Bilirubin AST ALT Alkaline Phosphatase Lactate Dehydrogenase C-Reactive Protein Total Protein Albumin Triglycerides Lipase Arterial Blood Glucose Arterial Blood Ionized Calcium Urine WBC (Auto) Coronavirus (PCR) SARS-CoV-2 IgG Ab Crossmatch 07/04/20 07/04/20 07/04/20 03:25 04:00 04:00 WBC 14.9 H RBC 2.91 L Hgb 9.5 L Hct 29.2 L MCV 100 H MCH 33 H MCHC RDW 16.7 H Lymph % (Auto) 8.4 L Mayes % (Auto) Lymph # (Auto) Mayes # (Auto) 1.1 H Baso # (Auto) Seg Neutrophils % 84.2 H Seg Neuts % (Manual) Lymphocytes % (Manual) Nucleated RBC % Seg Neutrophils # 12.6 H Seg Neutrophils # Man Lymphocytes # (Manual) Monocytes # (Manual) Eosinophils # (Manual) PT INR APTT D-Dimer Heparin Anti-Xa Level ABG pH 7.474 H POC ABG pCO2 POC ABG pO2 51.8 L ABG pO2 ABG HCO3 ABG O2 Saturation ABG Base Excess ABG Hemoglobin ABG Oxyhemoglobin ABG Sodium ABG Potassium ABG Chloride ABG Glucose Oxyhemoglobin Carboxyhemoglobin Sodium Potassium 3.4 L Chloride 92.1 L Carbon Dioxide 34 H BUN Creatinine 0.3 L Glucose 173 H POC Glucose Lactic Acid Calcium Magnesium Ferritin Total Bilirubin Direct Bilirubin AST ALT Alkaline Phosphatase Lactate Dehydrogenase C-Reactive Protein Total Protein Albumin Triglycerides Lipase Arterial Blood Glucose Arterial Blood Ionized Calcium Urine WBC (Auto) Coronavirus (PCR) SARS-CoV-2 IgG Ab Crossmatch 07/04/20 07/04/20 07/04/20 06:18 11:39 17:18 WBC RBC Hgb Hct MCV MCH MCHC RDW Lymph % (Auto) Mayes % (Auto) Lymph # (Auto) Mayes # (Auto) Baso # (Auto) Seg Neutrophils % Seg Neuts % (Manual) Lymphocytes % (Manual) Nucleated RBC % Seg Neutrophils # Seg Neutrophils # Man Lymphocytes # (Manual) Monocytes # (Manual) Eosinophils # (Manual) PT INR APTT D-Dimer Heparin Anti-Xa Level ABG pH POC ABG pCO2 POC ABG pO2 ABG pO2 ABG HCO3 ABG O2 Saturation ABG Base Excess ABG Hemoglobin ABG Oxyhemoglobin ABG Sodium ABG Potassium ABG Chloride ABG Glucose Oxyhemoglobin Carboxyhemoglobin Sodium Potassium Chloride Carbon Dioxide BUN Creatinine Glucose POC Glucose 158 H 257 H 148 H Lactic Acid Calcium Magnesium Ferritin Total Bilirubin Direct Bilirubin AST ALT Alkaline Phosphatase Lactate Dehydrogenase C-Reactive Protein Total Protein Albumin Triglycerides Lipase Arterial Blood Glucose Arterial Blood Ionized Calcium Urine WBC (Auto) Coronavirus (PCR) SARS-CoV-2 IgG Ab Crossmatch 07/04/20 07/05/20 07/05/20 23:23 03:13 05:18 WBC 13.3 H RBC 2.90 L Hgb 9.8 L Hct 29.3 L MCV 101 H MCH 34 H MCHC RDW 17.0 H Lymph % (Auto) 11.1 L Mayes % (Auto) Lymph # (Auto) Mayes # (Auto) Baso # (Auto) Seg Neutrophils % 82.3 H Seg Neuts % (Manual) Lymphocytes % (Manual) Nucleated RBC % Seg Neutrophils # 10.9 H Seg Neutrophils # Man Lymphocytes # (Manual) Monocytes # (Manual) Eosinophils # (Manual) PT INR APTT D-Dimer Heparin Anti-Xa Level ABG pH 7.48 H POC ABG pCO2 52.0 H POC ABG pO2 ABG pO2 ABG HCO3 ABG O2 Saturation ABG Base Excess ABG Hemoglobin 10.0 L ABG Oxyhemoglobin ABG Sodium 131.0 L ABG Potassium 3.3 L ABG Chloride 93.0 L ABG Glucose 177 H Oxyhemoglobin Carboxyhemoglobin Sodium Potassium Chloride Carbon Dioxide BUN Creatinine Glucose POC Glucose 227 H Lactic Acid Calcium Magnesium Ferritin Total Bilirubin Direct Bilirubin AST ALT Alkaline Phosphatase Lactate Dehydrogenase C-Reactive Protein Total Protein Albumin Triglycerides Lipase Arterial Blood Glucose 177 H Arterial Blood Ionized Calcium Urine WBC (Auto) Coronavirus (PCR) SARS-CoV-2 IgG Ab Crossmatch 07/05/20 07/05/20 07/05/20 05:18 05:25 05:57 WBC RBC Hgb Hct MCV MCH MCHC RDW Lymph % (Auto) Mayes % (Auto) Lymph # (Auto) Mayes # (Auto) Baso # (Auto) Seg Neutrophils % Seg Neuts % (Manual) Lymphocytes % (Manual) Nucleated RBC % Seg Neutrophils # Seg Neutrophils # Man Lymphocytes # (Manual) Monocytes # (Manual) Eosinophils # (Manual) PT INR APTT D-Dimer Heparin Anti-Xa Level ABG pH 7.519 H POC ABG pCO2 POC ABG pO2 198.6 H ABG pO2 ABG HCO3 ABG O2 Saturation ABG Base Excess ABG Hemoglobin 10.3 L ABG Oxyhemoglobin 98.7 H ABG Sodium 133.6 L ABG Potassium 3.3 L ABG Chloride 93.0 L ABG Glucose 175 H Oxyhemoglobin Carboxyhemoglobin Sodium Potassium 3.4 L Chloride 92.5 L Carbon Dioxide 36 H BUN Creatinine 0.3 L Glucose 148 H POC Glucose 170 H Lactic Acid Calcium Magnesium Ferritin Total Bilirubin Direct Bilirubin AST ALT Alkaline Phosphatase Lactate Dehydrogenase C-Reactive Protein Total Protein Albumin Triglycerides Lipase Arterial Blood Glucose 175 H Arterial Blood Ionized Calcium Urine WBC (Auto) Coronavirus (PCR) SARS-CoV-2 IgG Ab Crossmatch 07/05/20 07/05/20 07/06/20 11:37 18:39 00:04 WBC RBC Hgb Hct MCV MCH MCHC RDW Lymph % (Auto) Mayes % (Auto) Lymph # (Auto) Mayes # (Auto) Baso # (Auto) Seg Neutrophils % Seg Neuts % (Manual) Lymphocytes % (Manual) Nucleated RBC % Seg Neutrophils # Seg Neutrophils # Man Lymphocytes # (Manual) Monocytes # (Manual) Eosinophils # (Manual) PT INR APTT D-Dimer Heparin Anti-Xa Level ABG pH POC ABG pCO2 POC ABG pO2 ABG pO2 ABG HCO3 ABG O2 Saturation ABG Base Excess ABG Hemoglobin ABG Oxyhemoglobin ABG Sodium ABG Potassium ABG Chloride ABG Glucose Oxyhemoglobin Carboxyhemoglobin Sodium Potassium Chloride Carbon Dioxide BUN Creatinine Glucose POC Glucose 195 H 200 H 222 H Lactic Acid Calcium Magnesium Ferritin Total Bilirubin Direct Bilirubin AST ALT Alkaline Phosphatase Lactate Dehydrogenase C-Reactive Protein Total Protein Albumin Triglycerides Lipase Arterial Blood Glucose Arterial Blood Ionized Calcium Urine WBC (Auto) Coronavirus (PCR) SARS-CoV-2 IgG Ab Crossmatch 07/06/20 07/06/20 07/06/20 05:25 06:52 06:52 WBC 15.8 H RBC 3.17 L Hgb 10.4 L Hct 31.5 L MCV 99 H MCH 33 H MCHC RDW 17.0 H Lymph % (Auto) Mayes % (Auto) Lymph # (Auto) Mayes # (Auto) Baso # (Auto) Seg Neutrophils % Seg Neuts % (Manual) Lymphocytes % (Manual) Nucleated RBC % Seg Neutrophils # Seg Neutrophils # Man Lymphocytes # (Manual) Monocytes # (Manual) Eosinophils # (Manual) PT INR APTT D-Dimer Heparin Anti-Xa Level ABG pH POC ABG pCO2 POC ABG pO2 ABG pO2 ABG HCO3 ABG O2 Saturation ABG Base Excess ABG Hemoglobin ABG Oxyhemoglobin ABG Sodium ABG Potassium ABG Chloride ABG Glucose Oxyhemoglobin Carboxyhemoglobin Sodium 135 L Potassium 3.4 L Chloride 91.9 L Carbon Dioxide 38 H BUN Creatinine 0.3 L Glucose 189 H POC Glucose 165 H Lactic Acid Calcium Magnesium Ferritin Total Bilirubin Direct Bilirubin AST ALT Alkaline Phosphatase Lactate Dehydrogenase C-Reactive Protein Total Protein Albumin Triglycerides Lipase Arterial Blood Glucose Arterial Blood Ionized Calcium Urine WBC (Auto) Coronavirus (PCR) SARS-CoV-2 IgG Ab Crossmatch 07/06/20 07/06/20 07/06/20 13:01 18:04 23:08 WBC RBC Hgb Hct MCV MCH MCHC RDW Lymph % (Auto) Mayes % (Auto) Lymph # (Auto) Mayes # (Auto) Baso # (Auto) Seg Neutrophils % Seg Neuts % (Manual) Lymphocytes % (Manual) Nucleated RBC % Seg Neutrophils # Seg Neutrophils # Man Lymphocytes # (Manual) Monocytes # (Manual) Eosinophils # (Manual) PT INR APTT D-Dimer Heparin Anti-Xa Level ABG pH POC ABG pCO2 POC ABG pO2 ABG pO2 ABG HCO3 ABG O2 Saturation ABG Base Excess ABG Hemoglobin ABG Oxyhemoglobin ABG Sodium ABG Potassium ABG Chloride ABG Glucose Oxyhemoglobin Carboxyhemoglobin Sodium Potassium Chloride Carbon Dioxide BUN Creatinine Glucose POC Glucose 195 H 169 H 173 H Lactic Acid Calcium Magnesium Ferritin Total Bilirubin Direct Bilirubin AST ALT Alkaline Phosphatase Lactate Dehydrogenase C-Reactive Protein Total Protein Albumin Triglycerides Lipase Arterial Blood Glucose Arterial Blood Ionized Calcium Urine WBC (Auto) Coronavirus (PCR) SARS-CoV-2 IgG Ab Crossmatch 07/07/20 07/07/20 07/07/20 05:35 05:35 05:39 WBC 17.6 H RBC 3.16 L Hgb 10.4 L Hct 31.5 L MCV 100 H MCH 33 H MCHC RDW 16.7 H Lymph % (Auto) 11.1 L Mayes % (Auto) Lymph # (Auto) Mayes # (Auto) 1.0 H Baso # (Auto) Seg Neutrophils % 83.0 H Seg Neuts % (Manual) Lymphocytes % (Manual) Nucleated RBC % Seg Neutrophils # 14.6 H Seg Neutrophils # Man Lymphocytes # (Manual) Monocytes # (Manual) Eosinophils # (Manual) PT INR APTT D-Dimer Heparin Anti-Xa Level ABG pH POC ABG pCO2 POC ABG pO2 ABG pO2 ABG HCO3 ABG O2 Saturation ABG Base Excess ABG Hemoglobin ABG Oxyhemoglobin ABG Sodium ABG Potassium ABG Chloride ABG Glucose Oxyhemoglobin Carboxyhemoglobin Sodium 135 L Potassium 3.4 L Chloride 94.3 L Carbon Dioxide 32 H BUN Creatinine 0.2 L Glucose 240 H POC Glucose 191 H Lactic Acid Calcium Magnesium Ferritin Total Bilirubin Direct Bilirubin AST ALT Alkaline Phosphatase Lactate Dehydrogenase C-Reactive Protein Total Protein Albumin Triglycerides Lipase Arterial Blood Glucose Arterial Blood Ionized Calcium Urine WBC (Auto) Coronavirus (PCR) SARS-CoV-2 IgG Ab Crossmatch 07/07/20 07/07/20 07/07/20 12:08 16:39 23:41 WBC RBC Hgb Hct MCV MCH MCHC RDW Lymph % (Auto) Mayes % (Auto) Lymph # (Auto) Mayes # (Auto) Baso # (Auto) Seg Neutrophils % Seg Neuts % (Manual) Lymphocytes % (Manual) Nucleated RBC % Seg Neutrophils # Seg Neutrophils # Man Lymphocytes # (Manual) Monocytes # (Manual) Eosinophils # (Manual) PT INR APTT D-Dimer Heparin Anti-Xa Level ABG pH POC ABG pCO2 POC ABG pO2 ABG pO2 ABG HCO3 ABG O2 Saturation ABG Base Excess ABG Hemoglobin ABG Oxyhemoglobin ABG Sodium ABG Potassium ABG Chloride ABG Glucose Oxyhemoglobin Carboxyhemoglobin Sodium Potassium Chloride Carbon Dioxide BUN Creatinine Glucose POC Glucose 248 H 209 H 231 H Lactic Acid Calcium Magnesium Ferritin Total Bilirubin Direct Bilirubin AST ALT Alkaline Phosphatase Lactate Dehydrogenase C-Reactive Protein Total Protein Albumin Triglycerides Lipase Arterial Blood Glucose Arterial Blood Ionized Calcium Urine WBC (Auto) Coronavirus (PCR) SARS-CoV-2 IgG Ab Crossmatch 07/08/20 07/08/20 07/08/20 04:58 04:58 05:38 WBC 21.0 H RBC 2.86 L Hgb 9.2 L Hct 28.6 L MCV 100 H MCH MCHC RDW 16.7 H Lymph % (Auto) Mayes % (Auto) Lymph # (Auto) Mayes # (Auto) Baso # (Auto) Seg Neutrophils % Seg Neuts % (Manual) 93.0 H Lymphocytes % (Manual) 3.0 L Nucleated RBC % Seg Neutrophils # Seg Neutrophils # Man 19.5 H Lymphocytes # (Manual) 0.6 L Monocytes # (Manual) Eosinophils # (Manual) PT INR APTT D-Dimer Heparin Anti-Xa Level ABG pH POC ABG pCO2 POC ABG pO2 ABG pO2 ABG HCO3 ABG O2 Saturation ABG Base Excess ABG Hemoglobin ABG Oxyhemoglobin ABG Sodium ABG Potassium ABG Chloride ABG Glucose Oxyhemoglobin Carboxyhemoglobin Sodium Potassium 3.0 L Chloride Carbon Dioxide BUN Creatinine 0.2 L Glucose 201 H POC Glucose 161 H Lactic Acid Calcium 7.9 L D Magnesium Ferritin Total Bilirubin Direct Bilirubin AST ALT Alkaline Phosphatase Lactate Dehydrogenase C-Reactive Protein Total Protein Albumin Triglycerides Lipase Arterial Blood Glucose Arterial Blood Ionized Calcium Urine WBC (Auto) Coronavirus (PCR) SARS-CoV-2 IgG Ab Crossmatch 07/08/20 07/08/20 07/08/20 12:19 16:26 Unknown WBC RBC Hgb Hct MCV MCH MCHC RDW Lymph % (Auto) Mayes % (Auto) Lymph # (Auto) Mayes # (Auto) Baso # (Auto) Seg Neutrophils % Seg Neuts % (Manual) Lymphocytes % (Manual) Nucleated RBC % Seg Neutrophils # Seg Neutrophils # Man Lymphocytes # (Manual) Monocytes # (Manual) Eosinophils # (Manual) PT INR APTT D-Dimer Heparin Anti-Xa Level ABG pH POC ABG pCO2 POC ABG pO2 ABG pO2 75.3 L ABG HCO3 34.3 H ABG O2 Saturation ABG Base Excess 8.7 H ABG Hemoglobin 10.2 L ABG Oxyhemoglobin ABG Sodium ABG Potassium ABG Chloride ABG Glucose Oxyhemoglobin 93.7 L Carboxyhemoglobin Sodium Potassium Chloride Carbon Dioxide BUN Creatinine Glucose POC Glucose 152 H 173 H Lactic Acid Calcium Magnesium Ferritin Total Bilirubin Direct Bilirubin AST ALT Alkaline Phosphatase Lactate Dehydrogenase C-Reactive Protein Total Protein Albumin Triglycerides Lipase Arterial Blood Glucose Arterial Blood Ionized Calcium Urine WBC (Auto) Coronavirus (PCR) SARS-CoV-2 IgG Ab Crossmatch 07/09/20 07/09/20 07/09/20 00:01 06:00 11:55 WBC RBC Hgb Hct MCV MCH MCHC RDW Lymph % (Auto) Mayes % (Auto) Lymph # (Auto) Mayes # (Auto) Baso # (Auto) Seg Neutrophils % Seg Neuts % (Manual) Lymphocytes % (Manual) Nucleated RBC % Seg Neutrophils # Seg Neutrophils # Man Lymphocytes # (Manual) Monocytes # (Manual) Eosinophils # (Manual) PT INR APTT D-Dimer Heparin Anti-Xa Level ABG pH POC ABG pCO2 POC ABG pO2 ABG pO2 ABG HCO3 ABG O2 Saturation ABG Base Excess ABG Hemoglobin ABG Oxyhemoglobin ABG Sodium ABG Potassium ABG Chloride ABG Glucose Oxyhemoglobin Carboxyhemoglobin Sodium Potassium Chloride Carbon Dioxide BUN Creatinine Glucose POC Glucose 207 H 141 H 228 H Lactic Acid Calcium Magnesium Ferritin Total Bilirubin Direct Bilirubin AST ALT Alkaline Phosphatase Lactate Dehydrogenase C-Reactive Protein Total Protein Albumin Triglycerides Lipase Arterial Blood Glucose Arterial Blood Ionized Calcium Urine WBC (Auto) Coronavirus (PCR) SARS-CoV-2 IgG Ab Crossmatch 07/09/20 07/09/20 07/09/20 16:47 23:53 Unknown WBC RBC Hgb Hct MCV MCH MCHC RDW Lymph % (Auto) Mayes % (Auto) Lymph # (Auto) Mayes # (Auto) Baso # (Auto) Seg Neutrophils % Seg Neuts % (Manual) Lymphocytes % (Manual) Nucleated RBC % Seg Neutrophils # Seg Neutrophils # Man Lymphocytes # (Manual) Monocytes # (Manual) Eosinophils # (Manual) PT INR APTT D-Dimer Heparin Anti-Xa Level ABG pH POC ABG pCO2 POC ABG pO2 ABG pO2 ABG HCO3 ABG O2 Saturation ABG Base Excess ABG Hemoglobin ABG Oxyhemoglobin ABG Sodium ABG Potassium ABG Chloride ABG Glucose Oxyhemoglobin Carboxyhemoglobin Sodium 132 L Potassium Chloride 92.7 L Carbon Dioxide 35 H BUN Creatinine 0.2 L Glucose 234 H POC Glucose 136 H 219 H Lactic Acid Calcium Magnesium Ferritin Total Bilirubin Direct Bilirubin AST ALT Alkaline Phosphatase Lactate Dehydrogenase C-Reactive Protein Total Protein Albumin Triglycerides Lipase Arterial Blood Glucose Arterial Blood Ionized Calcium Urine WBC (Auto) Coronavirus (PCR) SARS-CoV-2 IgG Ab Crossmatch 07/10/20 07/10/20 07/10/20 05:20 12:05 18:38 WBC RBC Hgb Hct MCV MCH MCHC RDW Lymph % (Auto) Mayes % (Auto) Lymph # (Auto) Mayes # (Auto) Baso # (Auto) Seg Neutrophils % Seg Neuts % (Manual) Lymphocytes % (Manual) Nucleated RBC % Seg Neutrophils # Seg Neutrophils # Man Lymphocytes # (Manual) Monocytes # (Manual) Eosinophils # (Manual) PT INR APTT D-Dimer Heparin Anti-Xa Level ABG pH POC ABG pCO2 POC ABG pO2 ABG pO2 ABG HCO3 ABG O2 Saturation ABG Base Excess ABG Hemoglobin ABG Oxyhemoglobin ABG Sodium ABG Potassium ABG Chloride ABG Glucose Oxyhemoglobin Carboxyhemoglobin Sodium Potassium Chloride Carbon Dioxide BUN Creatinine Glucose POC Glucose 221 H 174 H 152 H Lactic Acid Calcium Magnesium Ferritin Total Bilirubin Direct Bilirubin AST ALT Alkaline Phosphatase Lactate Dehydrogenase C-Reactive Protein Total Protein Albumin Triglycerides Lipase Arterial Blood Glucose Arterial Blood Ionized Calcium Urine WBC (Auto) Coronavirus (PCR) SARS-CoV-2 IgG Ab Crossmatch 07/11/20 07/11/20 07/11/20 00:16 05:42 08:13 WBC 11.9 H RBC 3.13 L Hgb 10.2 L Hct 31.2 L MCV 100 H MCH 33 H MCHC RDW 16.4 H Lymph % (Auto) Mayes % (Auto) 9.3 H Lymph # (Auto) Mayes # (Auto) 1.1 H Baso # (Auto) Seg Neutrophils % 72.7 H Seg Neuts % (Manual) Lymphocytes % (Manual) Nucleated RBC % Seg Neutrophils # 8.7 H Seg Neutrophils # Man Lymphocytes # (Manual) Monocytes # (Manual) Eosinophils # (Manual) PT INR APTT D-Dimer Heparin Anti-Xa Level ABG pH POC ABG pCO2 POC ABG pO2 ABG pO2 ABG HCO3 ABG O2 Saturation ABG Base Excess ABG Hemoglobin ABG Oxyhemoglobin ABG Sodium ABG Potassium ABG Chloride ABG Glucose Oxyhemoglobin Carboxyhemoglobin Sodium Potassium Chloride Carbon Dioxide BUN Creatinine Glucose POC Glucose 170 H 186 H Lactic Acid Calcium Magnesium Ferritin Total Bilirubin Direct Bilirubin AST ALT Alkaline Phosphatase Lactate Dehydrogenase C-Reactive Protein Total Protein Albumin Triglycerides Lipase Arterial Blood Glucose Arterial Blood Ionized Calcium Urine WBC (Auto) Coronavirus (PCR) SARS-CoV-2 IgG Ab Crossmatch 07/11/20 07/11/20 07/11/20 08:13 11:35 18:07 WBC RBC Hgb Hct MCV MCH MCHC RDW Lymph % (Auto) Mayes % (Auto) Lymph # (Auto) Mayes # (Auto) Baso # (Auto) Seg Neutrophils % Seg Neuts % (Manual) Lymphocytes % (Manual) Nucleated RBC % Seg Neutrophils # Seg Neutrophils # Man Lymphocytes # (Manual) Monocytes # (Manual) Eosinophils # (Manual) PT INR APTT D-Dimer Heparin Anti-Xa Level ABG pH POC ABG pCO2 POC ABG pO2 ABG pO2 ABG HCO3 ABG O2 Saturation ABG Base Excess ABG Hemoglobin ABG Oxyhemoglobin ABG Sodium ABG Potassium ABG Chloride ABG Glucose Oxyhemoglobin Carboxyhemoglobin Sodium 135 L Potassium Chloride 92.8 L Carbon Dioxide 38 H BUN Creatinine 0.2 L Glucose 132 H POC Glucose 129 H 156 H Lactic Acid Calcium Magnesium Ferritin Total Bilirubin Direct Bilirubin AST ALT Alkaline Phosphatase Lactate Dehydrogenase C-Reactive Protein Total Protein Albumin Triglycerides Lipase Arterial Blood Glucose Arterial Blood Ionized Calcium Urine WBC (Auto) Coronavirus (PCR) SARS-CoV-2 IgG Ab Crossmatch 07/11/20 07/11/2007/12/21 18:36 23:18 05:28 WBC RBC Hgb Hct MCV MCH MCHC RDW Lymph % (Auto) Mayes % (Auto) Lymph # (Auto) Mayes # (Auto) Baso # (Auto) Seg Neutrophils % Seg Neuts % (Manual) Lymphocytes % (Manual) Nucleated RBC % Seg Neutrophils # Seg Neutrophils # Man Lymphocytes # (Manual) Monocytes # (Manual) Eosinophils # (Manual) PT INR APTT D-Dimer Heparin Anti-Xa Level ABG pH POC ABG pCO2 POC ABG pO2 70.9 L ABG pO2 ABG HCO3 ABG O2 Saturation ABG Base Excess ABG Hemoglobin 10.8 L ABG Oxyhemoglobin 92.5 L ABG Sodium 131.8 L ABG Potassium 3.2 L ABG Chloride 91.0 L ABG Glucose 181 H Oxyhemoglobin Carboxyhemoglobin Sodium Potassium Chloride Carbon Dioxide BUN Creatinine Glucose POC Glucose 189 H 190 H Lactic Acid Calcium Magnesium Ferritin Total Bilirubin Direct Bilirubin AST ALT Alkaline Phosphatase Lactate Dehydrogenase C-Reactive Protein Total Protein Albumin Triglycerides Lipase Arterial Blood Glucose 181 H Arterial Blood Ionized Calcium Urine WBC (Auto) Coronavirus (PCR) SARS-CoV-2 IgG Ab Crossmatch 07/12/20 07/12/20 07/12/20 11:33 17:45 23:59 WBC RBC Hgb Hct MCV MCH MCHC RDW Lymph % (Auto) Mayes % (Auto) Lymph # (Auto) Mayes # (Auto) Baso # (Auto) Seg Neutrophils % Seg Neuts % (Manual) Lymphocytes % (Manual) Nucleated RBC % Seg Neutrophils # Seg Neutrophils # Man Lymphocytes # (Manual) Monocytes # (Manual) Eosinophils # (Manual) PT INR APTT D-Dimer Heparin Anti-Xa Level ABG pH POC ABG pCO2 POC ABG pO2 ABG pO2 ABG HCO3 ABG O2 Saturation ABG Base Excess ABG Hemoglobin ABG Oxyhemoglobin ABG Sodium ABG Potassium ABG Chloride ABG Glucose Oxyhemoglobin Carboxyhemoglobin Sodium Potassium Chloride Carbon Dioxide BUN Creatinine Glucose POC Glucose 151 H 211 H 169 H Lactic Acid Calcium Magnesium Ferritin Total Bilirubin Direct Bilirubin AST ALT Alkaline Phosphatase Lactate Dehydrogenase C-Reactive Protein Total Protein Albumin Triglycerides Lipase Arterial Blood Glucose Arterial Blood Ionized Calcium Urine WBC (Auto) Coronavirus (PCR) SARS-CoV-2 IgG Ab Crossmatch 07/13/20 07/13/20 05:44 11:54 WBC RBC Hgb Hct MCV MCH MCHC RDW Lymph % (Auto) Mayes % (Auto) Lymph # (Auto) Mayes # (Auto) Baso # (Auto) Seg Neutrophils % Seg Neuts % (Manual) Lymphocytes % (Manual) Nucleated RBC % Seg Neutrophils # Seg Neutrophils # Man Lymphocytes # (Manual) Monocytes # (Manual) Eosinophils # (Manual) PT INR APTT D-Dimer Heparin Anti-Xa Level ABG pH POC ABG pCO2 POC ABG pO2 ABG pO2 ABG HCO3 ABG O2 Saturation ABG Base Excess ABG Hemoglobin ABG Oxyhemoglobin ABG Sodium ABG Potassium ABG Chloride ABG Glucose Oxyhemoglobin Carboxyhemoglobin Sodium Potassium Chloride Carbon Dioxide BUN Creatinine Glucose POC Glucose 122 H 132 H Lactic Acid Calcium Magnesium Ferritin Total Bilirubin Direct Bilirubin AST ALT Alkaline Phosphatase Lactate Dehydrogenase C-Reactive Protein Total Protein Albumin Triglycerides Lipase Arterial Blood Glucose Arterial Blood Ionized Calcium Urine WBC (Auto) Coronavirus (PCR) SARS-CoV-2 IgG Ab Crossmatch Allied health notes reviewed: nursing
--- NOTE | 2020-07-13 14:15 | Event Note ---
Date: 07/13/20 Followed up with patient. He is following all commands and off sedation. He tolerated weaning trial yesterday and is tolerating so far today. Once again spoke with patient about trach/peg with RN in room. He states he understands our discussions and he refuses procedures. Discussed with Dr. Delgado who will attempt extubation when appropriate. Will s/o. Please consult again if needed.
--- NOTE | 2020-07-13 14:57 | XRay Report ---
ABDOMEN 1 VIEW 07/13/2020 1:46 PM INDICATION / CLINICAL INFORMATION: NGT placement verification. COMPARISON: 06/27/2020 FINDINGS: Patient is rotated TUBES / LINES: Tip of the nasogastric tube projects the level the mid stomach BOWEL GAS PATTERN: No significant abnormality. FREE AIR / EXTRALUMINAL GAS: None. ADDITIONAL FINDINGS: No significant additional findings. IMPRESSION: 1. Tip of the nasogastric tube projects the level of the mid stomach. Signer Name: Thierno Joe MD Signed: 07/13/2020 2:53 PM Workstation Name: [id number]
[2020-07-13 16:12] LABS: Hematocrit 28.7 % (35.5-45.6); Hemoglobin 9.7 gm/dl (11.8-15.2); Mean Corpuscular HGB Conc 34 % (32-34); Mean Corpuscular Volume 98 fl (84-94); Platelet Count 242 K/mm3 (140-440); Red Blood Count 2.92 M/mm3 (3.65-5.03); Red Cell Distribution Width 16.8 % (13.2-15.2)
[2020-07-13 16:32] LABS: Blood Urea Nitrogen 10 mg/dL (9-20); Calcium 8.8 mg/dL (8.4-10.2); Hemolysis Index 5
[2020-07-13 16:35] LABS: BUN/Creatinine Ratio 50
[2020-07-13 16:55] LABS: Basophils % (Manual) 0 % (0.0-1.8); Total Cells Counted 100
[2020-07-13 16:56] LABS: Eosinophils % (Manual) 0 % (0.0-4.3)
[2020-07-13 16:59] LABS: Platelet Estimate Consistent w Auto
[2020-07-13 17:00] LABS: Stomatocytes Few
[2020-07-13] MEDS: POTASSIUM CHLORIDE 20 MEQ 20 MEQ/100 ML BAG IV SCH ×3 (19:50→23:36)
[2020-07-13] MEDS ORDERED: POTASSIUM CHLORIDE 20 MEQ 20 MEQ/100 ML BAG IV SCH (20:00)
[2020-07-14] MEDS: INSULIN LISPRO 100 UNIT/ML VIAL 3 mL SUB-Q SCH ×5 (05:04→23:32)
[2020-07-14 08:46] LABS: Blood Urea Nitrogen 11 mg/dL (9-20); Calcium 9.6 mg/dL (8.4-10.2); Hemolysis Index 1
[2020-07-14 08:52] LABS: BUN/Creatinine Ratio 37
[2020-07-14] MEDS: DOCUSATE SODIUM 100 MG/10 ML ORAL LIQD PO SCH ×2 (09:25→21:43)
[2020-07-14] MEDS: methylPREDNISolone Sod Succinate 40 MG/1 ML INJ IV SCH (09:25)
[2020-07-14] MEDS: ENOXAPARIN 80 MG/0.8 ML INJ SUB-Q SCH ×2 (09:26→21:53)
[2020-07-14] MEDS: LANSOPRAZOLE 30 MG SOLUTAB FEEDTUBE SCH (09:26)
[2020-07-14] MEDS: QUEtiapine 100 MG TAB PO SCH ×3 (09:26→20:03)
[2020-07-14] MEDS: ENOXAPARIN 30 MG/0.3 ML INJ SUB-Q SCH ×2 (09:26→21:53)
[2020-07-14] MEDS: SENNOSIDES 8.6 MG TAB PO SCH (09:27)
[2020-07-14] MEDS: QUEtiapine 200 MG TAB PO SCH ×3 (09:27→20:03)
[2020-07-14] MEDS: PHENobarbital 32.4 MG TAB PO SCH ×2 (09:27→21:53)
[2020-07-14] MEDS: FOLIC ACID 1 MG TAB PO SCH (09:27)
[2020-07-14] MEDS: MIDODRINE 5 MG TAB PO SCH ×3 (09:27→20:03)
[2020-07-14] MEDS: INSULIN GLARGINE 100 UNITS/ML SUB-Q SCH (09:28)
[2020-07-14] MEDS ORDERED: POTASSIUM CHLORIDE 20 MEQ PACKET FEEDTUBE SCH (10:00)
--- NOTE | 2020-07-14 10:14 | Progress Note ---
Assessment and Plan Assessment and plan: - Acute hypoxemic respiratory failure; Patient intubated and on vent support --Severe COVID-19 bilateral pneumonia Coronavirus protocol: IV steroid therapy, completed remdesivir, isolation precautions, contact precautions, prone positioning while in bed, pulmonary toilet. ID following SARS CoV-2 IgG positive patient is NOT a candidate for COVID convalescent plasma --Severe sepsis/septic shock, due to COVID 19 PNA cont pressors as needed -- Acute kidney injury (SEN) , likely vasomotor nephropathy Resolved, IV fluids, avoid nephrotoxins --Acute on chronic anemia Guaiac test positive GI evaluation PPIs Continue to monitor -- Elevated liver function tests Suspected secondary to alcoholic liver disease. Supportive care, alcohol cessation, patient counseled. --Colonic distention GI evaluation -recommend stool softeners Serial abdominal x-rays Monitor electrolytes and replete -- DVT prophylaxis On therapeutic Lovenox 50 YO Male with Obesity, ETOH Dependence presents to ED for evaluation for shortness of breath, generalized weakness, fatigue, malaise, body aches, decreased exercise tolerance over the past 5 days. EMS was notified and upon arrival the patient was found to be in distress with a pulse oximetry of 76% on room air as well as fever to 103 F. In the ER chest x-ray and was found to have bilateral pneumonia. Patient admitted to medical floor and initiated on pneumonia protocol as well as COVID-19 protocol. Patient reports being diagnosed with coronavirus 2 days ago before admission. 06/16/2020. Patient currently on mechanical ventilation with AC mode rate 30, tidal volume 500, FiO2 70% and PEEP of 16. Continue anticoagulation with Lovenox 110 milligrams subcu every 12 hours. Wean sedation of fentanyl/Versed as needed. Currently with IV steroids of Solu-Medrol 40 mg IV every 12 hours. Patient will likely need tracheostomy per pulmonary recommendations. Continue pressors to maintain MAP > 65. 06/17/2020. Patient currently on mechanical ventilation with AC mode rate 30, tidal volume 500, FiO2 65% and PEEP of 16. Continue anticoagulation with Lovenox 110 milligrams subcu every 12 hours. Wean sedation of fentanyl/Versed as needed. Currently with IV steroids of Solu-Medrol 40 mg IV every 12 hours. Patient will likely need tracheostomy per pulmonary recommendations. 06/18/2020. Patient currently on mechanical ventilation with AC mode rate 30, tidal volume 500, FiO2 70% and PEEP of 16. Continue Lovenox for anticoagulation and fentanyl/Versed for sedation. Wean steroids per pulmonary. CIWA protocol initiated for history of EtOH dependence 06/19/2020. Patient currently on mechanical ventilation with AC mode rate 30, tidal volume 500, FiO2 60% and PEEP of 16. Wean FiO2 as tolerated per protocol. Continue Lovenox for anticoagulation and fentanyl/Versed for sedation. Wean steroids per pulmonary. CIWA protocol initiated for history of EtOH dependence 06/20/2020. Patient currently on mechanical ventilation with AC mode rate 30, tidal volume 500, FiO2 60% and PEEP of 16. Wean FiO2 as tolerated, SBT per protocol. Continue Lovenox for anticoagulation and fentanyl/Versed for sedation. Wean steroids per pulmonary. Continue pressors to maintain MAP > 65 mmHg. Patient remains on ETT. Consider tracheostomy placement once oxygenation is better per pulmonary. CIWA protocol initiated for history of EtOH dependence. 06/21/2020. Patient with a small apical pneumothorax discovered yesterday. General surgery consulted and consider placing chest tube. Follow-up serial chest x-ray patient currently on mechanical ventilation with AC mode rate 30, tidal volume 500, FiO2 60% and PEEP of 16. Wean FiO2 as tolerated, SBT per protocol. Continue Lovenox for anticoagulation and fentanyl/Versed for sedation. Wean steroids per pulmonary. Continue pressors to maintain MAP > 65 mmHg. Patient remains on ETT. Consider tracheostomy placement once oxygenation is better per pulmonary. CIWA protocol initiated for history of EtOH dependence. 06/22. Status post right chest tube placement yesterday. Remains mechanically ventilated on pressors. Examination today shows slightly distended abdomen. KUB ordered. Awaiting stool guaiac. Plan to get a GI evaluation. 06/23. Has colonic distention on the x-ray. Discussed with GI-advised stool softeners for now and close monitoring. No indication for colonic decompression at this time. Guaiac test is positive. No emergent indication for endoscopy at this point as per GI. Continue to monitor hemoglobin. 06/24. Remains intubated. On pressors. GI following for positive guaiac stool a nd anemia, and colonic distention. 06/25. Repeat abdominal xray ordered. Remains on mechanical ventilation. 06/26. Abdominal xray - resolved colonic distension. Mechanically ventilated. 06/27. Plan for trach and PEG. 06/28: Awaiting trach and Peg. S\ome Bm REPORTED, will continue to monitor 06/29: Resume care, patient remains on ventilator support, waiting on trach and PEG placement. BM reported by the RN, continue to monitor. 06/30: Unable to wean off from vent, patient will need trach and PEG. Continue supportive care, tolerating tube feed. Monitor CBC and BMP 07/01: Continue mechanical ventilation, tube feeding as tolerated. Sedation as needed per mechanical ventilation protocol. Waiting on trach and PEG placement. 07/02: Continue current management, tube feeding, monitor CBC and BMP. Need trach and PEG-waiting on scheduling. Pulmonary critical care following. 07/03: wean off vent as tolerated. follow clinically. need trach and PEG 07/04: unable to wean. CT head ordered to assess for any changes but too unstable to do the test. need trach and PEG. 07/05: plan for trach/peg - GS following. off pressor - on midodrine. renal function stable. intubated, but alert and can follow minor commend. discussed with daughter by phone. 07/06/2020; Dr. Márquez discussed with patient's daughter about trach but the daughter needs time to think about it. Patient was intubated and alert, FiO2 40%. 07/07/2020; patient was intubated and alert, FiO2 40%. Patient was diaphoretic, tachycardic, and EKG was done which was abnormal for me. I called insulation extruder operator Dr Louis saw the EKG and said it is normal EKG, and the findings are abnormal. 07/08/2020; no significant change, patient is intubated and alert. 1/2: Patient continues on current management. Pulmonary recommending trach and PEG awaiting patient's decision on this. Will check intermittent labs /3: Ordered CT still pending. Patient was agitated at night. Appears to have calmed down. Will repeat labs today. 07/12: Continue supportive care, awaiting CPAP trial. discussed with pulmonary. Obtain labs today. Trach and Peg planned 07/13: Continues to current management, PLAN FOR Trach and PEG on Sunday if patient is not able to liberated from the ventilator, Continue to monitor Fever curve and repeat Sepsis work up if persistent fever 07/14: Now extubated, continue to work up. The high probability of a clinically significant, sudden or life threatening deterioration of the [respiratory] system(s) required my full and direct attention, intervention and personal management. The aggregate critical care time was [31] minutes. This time is in addition to time spent performing r eported procedures but includes the following: [x] Data Review and interpretation [x] Patient assessment and monitoring of vital signs [x] Documentation [x] Medication orders and management History Interval history: Pt seen and examined. Doing well post extubation. Hospitalist Physical - Physical exam Narrative exam: VITAL SIGNS: Reviewed. Exam limited due to global pandemic PPE GENERAL: AWAKE, FOLLOWS COMMAND HEAD: No signs of head trauma. MOUTH: Oropharynx is normal. NECK: No adenopathy, no JVD. CHEST: Chest with diminished breath sounds bilaterally. No wheezes, rales, or rhonchi. CARDIAC: normal S1 and S2, without murmurs, gallops, or rubs. ABDOMEN: Slightly distended, bowel sounds hypoactive NEUROLOGICAL EXAM: DROWSY BUT AWAKE - Constitutional Vitals: Temp Pulse Resp BP Pulse Ox 98.8 F 97 H 23 131/72 100 07/14/20 04:00 07/14/20 08:36 07/14/20 08:36 07/14/20 08:36 07/14/20 08:36 General appearance: Present: no acute distress, mild distress, well-nourished HEART Score - HEART Score Troponin: Troponin T 0.015 ng/mL (0.00-0.029) 07/07/20 10:00 Results - Labs CBC & Chem 7: 07/13/20 08:31 07/15/20 05:31 Labs: Laboratory Last Values WBC 21.3 K/mm3 (4.5-11.0) H 07/13/20 08:31 RBC 2.92 M/mm3 (3.65-5.03) L 07/13/20 08:31 Hgb 9.7 gm/dl (11.8-15.2) L 07/13/20 08:31 Hct 28.7 % (35.5-45.6) L 07/13/20 08:31 MCV 98 fl (84-94) H 07/13/20 08:31 MCH 33 pg (28-32) H 07/13/20 08:31 MCHC 34 % (32-34) 07/13/20 08:31 RDW 16.8 % (13.2-15.2) H 07/13/20 08:31 Plt Count 242 K/mm3 (140-440) 07/13/20 08:31 Lymph % (Auto) 17.5 % (13.4-35.0) 07/11/20 08:13 [place] % (Auto) 9.3 % (0.0-7.3) H 07/11/20 08:13 Eos % (Auto) 0.3 % (0.0-4.3) 07/11/20 08:13 Baso % (Auto) 0.2 % (0.0-1.8) 07/11/20 08:13 Lymph # (Auto) 2.1 K/mm3 (1.2-5.4) 07/11/20 08:13 [place] # (Auto) 1.1 K/mm3 (0.0-0.8) H 07/11/20 08:13 Eos # (Auto) 0.0 K/mm3 (0.0-0.4) 07/11/20 08:13 Baso # (Auto) 0.0 K/mm3 (0.0-0.1) 07/11/20 08:13 Add Manual Diff Complete 07/13/20 08:31 Total Counted 100 07/13/20 08:31 Seg Neutrophils % [employer] 07/13/20 08:31 Seg Neuts % (Manual) 96.0 % (40.0-70.0) H 07/13/20 08:31 Band Neutrophils % 0 % 07/13/20 08:31 Lymphocytes % (Manual) 2.0 % (13.4-35.0) L 07/13/20 08:31 Reactive Lymphs % (Man) 0 % 07/13/20 08:31 Monocytes % (Manual) 2.0 % (0.0-7.3) 07/13/20 08:31 Eosinophils % (Manual) 0 % (0.0-4.3) 07/13/20 08:31 Basophils % (Manual) 0 % (0.0-1.8) 07/13/20 08:31 Metamyelocytes % 0 % 07/13/20 08:31 Myelocytes % 0 % 07/13/20 08:31 Promyelocytes % 0 % 07/13/20 08:31 Blast Cells % 0 % 07/13/20 08:31 Nucleated RBC % Not Reportable 07/13/20 08:31 Seg Neutrophils # 8.7 K/mm3 (1.8-7.7) H 07/11/20 08:13 Seg Neutrophils # Man 20.4 K/mm3 (1.8-7.7) H 07/13/20 08:31 Band Neutrophils # 0.0 K/mm3 07/13/20 08:31 Lymphocytes # (Manual) 0.4 K/mm3 (1.2-5.4) L 07/13/20 08:31 Abs React Lymphs (Man) 0.0 K/mm3 07/13/20 08:31 Monocytes # (Manual) 0.4 K/mm3 (0.0-0.8) 07/13/20 08:31 Eosinophils # (Manual) 0.0 K/mm3 (0.0-0.4) 07/13/20 08:31 Basophils # (Manual) 0.0 K/mm3 (0.0-0.1) 07/13/20 08:31 Metamyelocytes # 0.0 K/mm3 07/13/20 08:31 Myelocytes # 0.0 K/mm3 07/13/20 08:31 Promyelocytes # 0.0 K/mm3 07/13/20 08:31 Blast Cells # 0.0 K/mm3 07/13/20 08:31 WBC Morphology Not Reportable 07/13/20 08:31 Hypersegmented Neuts Not Reportable 07/13/20 08:31 Hyposegmented Neuts Not Reportable 07/13/20 08:31 Hypogranular Neuts Not Reportable 07/13/20 08:31 Smudge Cells Not Reportable 07/13/20 08:31 Toxic Granulation Not Reportable 07/13/20 08:31 Toxic Vacuolation Not Reportable 07/13/20 08:31 Dohle Bodies Not Reportable 07/13/20 08:31 Pelger-Huet Anomaly Not Reportable 07/13/20 08:31 Jason Rods Not Reportable 07/13/20 08:31 Platelet Estimate Consistent w auto 07/13/20 08:31 Clumped Platelets Not Reportable 07/13/20 08:31 Plt Clumps, EDTA Not Reportable 07/13/20 08:31 Large Platelets Not Reportable 07/13/20 08:31 Giant Platelets Not Reportable 07/13/20 08:31 Platelet Satelliting Not Reportable 07/13/20 08:31 Plt Morphology Comment Not Reportable 07/13/20 08:31 RBC Morphology Not Reportable 07/13/20 08:31 Dimorphic RBCs Not Reportable 07/13/20 08:31 Polychromasia Not Reportable 07/13/20 08:31 Hypochromasia Not Reportable 07/13/20 08:31 Poikilocytosis Not Reportable 07/13/20 08:31 Anisocytosis Not Reportable 07/13/20 08:31 Microcytosis Not Reportable 07/13/20 08:31 Macrocytosis Not Reportable 07/13/20 08:31 Spherocytes Not Reportable 07/13/20 08:31 Pappenheimer Bodies Not Reportable 07/13/20 08:31 Sickle Cells Not Reportable 07/13/20 08:31 Target Cells Not Reportable 07/13/20 08:31 Tear Drop Cells Not Reportable 07/13/20 08:31 Ovalocytes Not Reportable 07/13/20 08:31 Stomatocytes Few 07/13/20 08:31 Helmet Cells Not Reportable 07/13/20 08:31 [place] Bodies Not Reportable 07/13/20 08:31 [place] Rings Not Reportable 07/13/20 08:31 [place] Cells Not Reportable 07/13/20 08:31 Bite Cells Not Reportable 07/13/20 08:31 Crenated Cell Not Reportable 07/13/20 08:31 Elliptocytes Not Reportable 07/13/20 08:31 Acanthocytes (Spur) Not Reportable 07/13/20 08:31 Rouleaux Not Reportable 07/13/20 08:31 Hemoglobin C Crystals Not Reportable 07/13/20 08:31 Schistocytes Not Reportable 07/13/20 08:31 Malaria parasites Not Reportable 07/13/20 08:31 Josue Bodies Not Reportable 07/13/20 08:31 Hem Pathologist Commnt No 07/13/20 08:31 PT 11.8 Sec. (12.2-14.9) L 06/22/20 14:29 INR 0.88 (0.87-1.13) 06/22/20 14:29 APTT 23.5 Sec. (24.2-36.6) L 06/22/20 14:29 D-Dimer 1887.82 ng/mlDDU (0-234) H 05/20/20 08:16 Heparin Anti-Xa Level 0.37 U.I./ml (0.3-0.7) 07/02/20 16:08 ABG pH 7.477 (7.320-7.450) H 07/13/20 13:52 POC ABG pCO2 54.4 mmHg (32.0-48.0) H 07/13/20 13:52 ABG pCO2 53.1 mm Hg 07/08/20 Unknown POC ABG pO2 126.8 mmHg (83-108) H 07/13/20 13:52 ABG pO2 75.3 mm Hg (80.0-90.0) L 07/08/20 Unknown POC ABG HCO3 39.3 07/13/20 13:52 ABG HCO3 34.3 mmol/L (20.0-26.0) H 07/08/20 Unknown ABG O2 Saturation 96.5 % (95.0-99.0) 07/08/20 Unknown ABG O2 Content 13.5 (0.0-44) 07/08/20 Unknown POC ABG Base Excess 13.8 07/13/20 13:52 ABG Base Excess 8.7 mmol/L (-2.0-3.0) H 07/08/20 Unknown ABG Hemoglobin 11.5 (12.0-17.5) L 07/13/20 13:52 ABG Oxyhemoglobin 97.7 (94-98) 07/13/20 13:52 ABG Carboxyhemoglobin 2.4 % (0.0-5.0) 07/08/20 Unknown ABG Methemoglobin 0 (0.0-1.5) 07/13/20 13:52 ABG Sodium 136.2 mmol/L (136.0-145.0) 07/13/20 13:52 ABG Potassium 3.2 mmol/L (3.40-4.50) L 07/13/20 13:52 ABG Chloride 92.0 mmol/L (98-107) L 07/13/20 13:52 ABG Glucose 169 mg/dL (65-95) H 07/13/20 13:52 Oxyhemoglobin 93.7 % (95.0-99.0) L 07/08/20 Unknown Carboxyhemoglobin 1.2 (0.5-1.5) 07/13/20 13:52 FiO2 45 07/13/20 13:52 Sodium 141 mmol/L (137-145) 07/14/20 07:49 Potassium 2.7 mmol/L (3.6-5.0) L* 07/14/20 07:49 Chloride 94.0 mmol/L (98-107) L 07/14/20 07:49 Carbon Dioxide 37 mmol/L (22-30) H 07/14/20 07:49 Anion Gap 13 mmol/L 07/14/20 07:49 BUN 11 mg/dL (9-20) 07/14/20 07:49 Creatinine 0.3 mg/dL (0.8-1.3) L 07/14/20 07:49 Estimated GFR > 60 ml/min 07/14/20 07:49 BUN/Creatinine Ratio 37 % 07/14/20 07:49 Glucose 110 mg/dL (75-100) H 07/14/20 07:49 POC Glucose 98 mg/dL (70-105) 07/14/20 05:16 Lactic Acid 0.80 mmol/L (0.7-2.0) 07/13/20 15:45 Calcium 9.6 mg/dL (8.4-10.2) 07/14/20 07:49 Phosphorus 3.10 mg/dL (2.5-4.5) 06/15/20 04:00 Magnesium 1.80 mg/dL (1.7-2.3) 07/14/20 07:49 Ferritin 1496.0 ng/mL (30.0-300.0) H 06/14/20 11:50 Total Bilirubin 0.60 mg/dL (0.1-1.2) 06/30/20 07:00 Direct Bilirubin 0.6 mg/dL (0-0.2) H 05/11/20 07:30 Indirect Bilirubin 0.9 mg/dL 05/11/20 07:30 AST 21 units/L (5-40) 06/30/20 07:00 ALT 30 units/L (7-56) 06/30/20 07:00 Alkaline Phosphatase 81 units/L (35-129) 06/30/20 07:00 Lactate Dehydrogenase 705 units/L (91-180) H 05/20/20 08:16 Troponin T 0.015 ng/mL (0.00-0.029) 07/07/20 10:00 C-Reactive Protein 3.10 mg/dL (0.00-1.30) H 05/20/20 08:16 Total Protein 6.3 g/dL (6.3-8.2) 06/30/20 07:00 Albumin 2.8 g/dL (3.9-5) L 06/30/20 07:00 Albumin/Globulin Ratio 0.8 % 06/30/20 07:00 Triglycerides 452 mg/dL (2-149) H 06/30/20 07:00 Lipase 86 units/L (13-60) H 06/29/20 09:36 Procalcitonin 0.94 ng/mL (<0.15) 06/14/20 11:50 Arterial Blood Glucose 169 mg/dL (65-95) H 07/13/20 13:52 Arterial Blood Ionized Calcium 4.8 mg/dL (4.6-5.3) 07/13/20 13:52 Urine Color Fauzia (Yellow) 05/10/20 Unknown Urine Turbidity Clear (Clear) 05/10/20 Unknown Urine pH 5.0 (5.0-7.0) 05/10/20 Unknown Ur Specific [place] 1.019 (1.003-1.030) 05/10/20 Unknown Urine Protein 100 mg/dl mg/dL (Negative) 05/10/20 Unknown Urine Glucose (UA) Neg mg/dL (Negative) 05/10/20 Unknown Urine Ketones Neg mg/dL (Negative) 05/10/20 Unknown Urine Blood Lg (Negative) 05/10/20 Unknown Urine Nitrite Neg (Negative) 05/10/20 Unknown Urine Bilirubin Neg (Negative) 05/10/20 Unknown Urine Urobilinogen 2.0 mg/dL (<2.0) 05/10/20 Unknown Ur Leukocyte Esterase Neg (Negative) 05/10/20 Unknown Urine WBC (Auto) 11.0 /HPF (0.0-6.0) H 05/10/20 Unknown Urine RBC (Auto) 2.0 /HPF (0.0-6.0) 05/10/20 Unknown U Epithel Cells (Auto) 1.0 /HPF (0-13.0) 05/10/20 Unknown Urine Bacteria (Auto) 1+ /HPF (Negative) 05/10/20 Unknown Urine Mucus Few /HPF 05/10/20 Unknown Plasma/Serum Alcohol < 0.01 % (0-0.07) 05/09/20 14:20 Coronavirus (PCR) Negative (Negative) 06/30/20 10:28 Hep B Core Total Ab Nonreactive (Nonreactive) 07/09/20 Unknown SARS-CoV-2 IgG Ab Reactive (NonReactive) A 05/11/20 07:30 Blood Type B POSITIVE 06/21/20 14:18 Antibody Screen Negative 06/21/20 14:18 Crossmatch See Detail 06/21/20 14:18 Microbiology: Microbiology 07/13/20 Unknown Peripheral/Venous Blood Culture - Preliminary Culture in Progress 07/13/20 Unknown Peripheral/Venous Blood Culture - Preliminary Culture in Progress - Diagnostic Impressions Diagnostic Impressions: Echocardiogram 05/20/20 13:02 Transthoracic Echocardiogram Indication: CHF BP: 97/73 Conclusions *The study quality is technically very difficult and limited. *The left ventricular chamber size, wall thickness and systolic function are within normal limits. There are no wall motion abnormalities observed. Ejection fraction is normal. *The estimated ejection fraction is 60-65%. *The pericardium appears normal. Findings Procedure Info: The study quality is technically difficult. Left Ventricle: The left ventricular chamber size, wall thickness and systolic function are within normal limits. There are no wall motion abnormalities observed. Ejection fraction is normal. The estimated ejection fraction is 60-65%. Abnormal left ventricular diastolic filling is observed, consistent with impaired relaxation. Left Atrium: The left atrium is normal in size with no visual thrombus identified. Right Ventricle: The right ventricle is not well visualized. Right Atrium: The right atrium is not well visualized. Aortic Valve: The aortic valve is trileaflet. The leaflets are thin with normal excursion. There is no aortic stenosis or regurgitation present. Mitral Valve: The mitral valve appears normal in structure and function. Tricuspid Valve: The tricuspid valve appears normal in structure and function. Unable to estimate the right ventricular systolic pressure. Pulmonic Valve: The pulmonic valve is not well visualized. There is no evidence of pulmonic regurgitation. There is no pulmonic stenosis. Pericardium: The pericardium appears normal. Pulmonary Artery: The main pulmonary artery is not well visualized. Venous: The inferior vena cava appears normal in size. Measurements Chambers 2D Name Value Normal Range IVSd (2D) 0.83 cm (0.6 - 1.1) LVPWd (2D) 0.83 cm (0.6 - 1.1) LVIDd (2D) 3.88 cm (3.7 - 5.6) LVIDs (2D) 2.46 cm (2 - 3.8) LV FS (2D) 36.52 % - EF Teichholz (2D) 66.97 % - Ao root diameter (2D) 3.47 cm (2 - 3.7) Volumes/Mass Name Value Normal Range LA ESV SP 4CH (A/L) 22.4 ml - LA ESV SP 2CH (A/L) 22.89 ml - LA ESV BP (A/L) 23.06 ml - LA ESV SP 4CH (MOD) 21.09 ml - LA ESV SP 2CH (MOD) 22.44 ml - Diastolic/Systolic Function Name Value Normal Range MV E-wave Vmax 0.48 m/sec - MV deceleration time 156.3 msec - MV A-wave Vmax 0.59 m/sec - MV E:A ratio 0.81 ratio - Aortic Valve Name Value Normal Range AV Vmax 0.97 m/sec - AV VTI 14.49 cm - AV peak gradient 3.73 mmHg - AV mean gradient 1.89 mmHg - LVOT diameter 2.09 cm - LVOT Vmax 0.72 m/sec - LVOT VTI 10.21 cm - LVOT peak gradient 2.05 mmHg - LVOT mean gradient 1.03 mmHg - SV LVOT 35.17 ml - INNA (continuity Vmax) 2.55 cm2 - INNA (continuity VTI) 2.43 cm2 - Tricuspid Valve Name Value Normal Range TV E-wave Vmax 0.37 m/sec - Pulmonic Valve/Qp:Qs Name Value Normal Range PV Vmax 0.72 m/sec - PV peak gradient 2.06 mmHg - RVOT Vmax 0.85 m/sec - RVOT VTI 9.89 cm - RVOT peak gradient 2.9 mmHg - PV acceleration time 72.31 msec - Cantor/IV: Voiding Method Condom Catheter IV Catheter Type [Right Upper PICC Line arm] IV Catheter Type [Right CVL Internal Jugular] IV Catheter Type [Right Peripheral IV Forearm] IV Catheter Type [Left Forearm Peripheral IV ] IV Catheter Type [Left Wrist] INT / Saline Lock IV Catheter Type [Right Hand] INT / Saline Lock IV Catheter Type [Left Hand] INT / Saline Lock IV Catheter Type [Left Peripheral IV Antecubital] Active Medications - Current Medications Current Medications: Generic Name Dose Route Start Last Admin Trade Name Freq PRN Reason Stop Dose Admin Acetaminophen 650 mg 06/14/20 10:07 07/13/20 08:59 Tylenol FEEDTUBE 650 mg Q4H PRN Administration Pain, Mild (1-3) Alprazolam 0.25 mg 05/20/20 17:53 07/08/20 06:24 Alprazolam 0.25 Mg Tab PO 0.25 mg Q8H PRN Administration Anxiety Lipase/Protease/Amylase 1 each 05/22/20 13:01 Lipase 10,500/Protease 25,000/Amylase 43,750 (Units) Dr Newell FEEDTUBE PRN PRN For Clogged Feeding Tube Bisacodyl 10 mg 06/26/20 22:00 07/14/20 09:28 Bisacodyl 10 Mg Rect Supp UT Not Given BID DESIRE Docusate Sodium 100 mg 05/28/20 14:00 07/14/20 09:25 Docusate Sodium 100 Mg/10 Ml Oral Liqd PO 100 mg BID DESIRE Administration Enoxaparin Sodium 80 mg 07/07/20 23:00 07/14/20 09:26 Enoxaparin 80 Mg/0.8 Ml Inj SUB-Q 80 mg Q12HR DESIRE Administration Enoxaparin Sodium 30 mg 07/07/20 23:00 07/14/20 09:26 Enoxaparin 30 Mg/0.3 Ml Inj SUB-Q 30 mg Q12HR DESIRE Administration Folic Acid 1 mg 05/09/20 15:36 07/14/20 09:27 Folic Acid 1 Mg Tab PO 1 mg QDAY DESIRE Administration Hydrophilic Ointment 1 applic 05/21/20 20:33 Lip Therapy Vaseline TP Q2HR PRN Dry Lips Dexmedetomidine HCl 1,000 mcg/ 260 mls @ 5.668 mls/hr 07/05/20 08:30 07/13/20 23:55 Sodium Chloride IV 1 mcg/kg/hr TITRATE DESIRE 28.34 mls/hr Administration Protocol 0.2 MCG/KG/HR Insulin Glargine 5 units 07/05/20 14:00 07/14/20 09:28 Insulin Glargine 100 Units/Ml SUB-Q Not Given DAILY DESIRE Insulin Human Lispro 0 unit 05/29/20 14:00 07/14/20 05:04 Insulin Lispro 100 Unit/Ml Vial 3 Ml SUB-Q Not Given Q6H [facility] Protocol Lansoprazole 30 mg 06/28/20 10:00 07/14/20 09:26 Lansoprazole 30 Mg Solutab FEEDTUBE 30 mg QDAY DESIRE Administration Lorazepam 1 mg 07/04/20 01:10 07/12/20 22:07 Lorazepam 2 Mg/Ml Vial IV 1 mg Q1HR PRN Administration agitation Methylprednisolone Sodium Succinate 40 mg 07/13/20 10:00 07/14/20 09:25 Methylprednisolone Sod Succinate 40 Mg/1 Ml Inj IV 40 mg Q24HR DESIRE Administration Metoprolol Tartrate 5 mg 07/02/20 17:17 07/08/20 14:38 Metoprolol Tartrate 5 Mg/5 Ml Inj IV 5 mg Q6HR PRN Administration Tachyarrhythmias Midodrine 10 mg 06/30/20 16:00 07/14/20 09:27 Midodrine 5 Mg Tab PO 10 mg TID@0800,1200,1600 DESIRE Administration Multi-Ingred Cream/Lotion/Oil/Oint 1 applic 05/21/20 20:33 Mineral Oil/Petrolatum, White Ophth Oint 3.5 Gm OU Q4HR PRN Dry Eye(s) Phenobarbital 32.4 mg 07/04/20 22:00 07/14/20 09:27 Phenobarbital 32.4 Mg Tab PO 32.4 mg BID DESIRE Administration Potassium Chloride 40 meq 07/14/20 10:00 07/14/20 09:25 Potassium Chloride 20 Meq Packet FEEDTUBE 07/14/20 14:01 40 meq Q4H DESIRE Administration Quetiapine Fumarate 100 mg 07/02/20 23:15 07/14/20 09:26 Quetiapine 100 Mg Tab PO 100 mg TID DESIRE Administration Quetiapine Fumarate 200 mg 07/02/20 23:00 07/14/20 09:27 Quetiapine 200 Mg Tab PO 200 mg TID DESIRE Administration Senna 17.2 mg 06/07/20 10:00 07/14/20 09:27 Sennosides 8.6 Mg Tab PO 17.2 mg BID DESIRE Administration Simple Syrup 15 ml 05/22/20 13:01 Simple Syrup 15 Ml FEEDTUBE PRN PRN Hypoglycemia Simple Syrup 30 ml 05/22/20 13:01 Simple Syrup 15 Ml FEEDTUBE PRN PRN Hypoglycemia Sodium Bicarbonate 325 mg 05/22/20 13:01 Sodium Bicarbonate 325 Mg Tab FEEDTUBE PRN PRN For Clogged Feeding Tube Sodium Chloride 10 ml 05/09/20 22:00 07/14/20 09:28 Sodium Chloride 0.9% 10 Ml Flush Syringe IV 10 ml BID DESIRE Administration Nutrition/Malnutrition Assess - Dietary Evaluation Nutrition/Malnutrition Findings: Nutrition Notes Start: 05/17/20 14:10 Freq: Status: Active Protocol: Document 07/07/20 13:16 (Rec: 07/07/20 13:20 [id number]) Nutrition Notes Initial or Follow up Reassessment Current Diagnosis Sepsis,Respiratory Failure Other Pertinent Diagnosis Bilat pneu, COVID-19 (+), EtOH dependence Current Diet Vital HP at 65 ml/hr (goal rate) Labs/Tests Na 135 K 3.4 BG 240 Pertinent Medications Solumedrol Humalog Levophed Height 6 ft Weight 110 kg [place] Body Weight (kg) 80.90 BMI 32.8 Weight Status Obese Subjective/Other Information FU for TF tolerance. Per RN, pt tolerating TF at goal. Percent of energy/protein needs met: 87%/84% Burn Absent Trauma Absent GI Symptoms None Current % PO Negligible Minimum of two criteria No physical signs of malnutrition #1 Nutrition Diagnosis Inadequate oral intake Diagnosis Progress(for reassessment Continues documentation) Is patient on ventilator? Yes Is Patient Ambulatory and/or Out of Bed No REE-([facility]-confined to bed) 2395.176 Kcal/Kg value to use for calculation 16 Approximate Energy Requirements Using 1760 kcal/Kg Calculation Used for Recommendations Kcal/kg Additional Notes Pro needs >2g/kg IBW: at least 162g/day Fluid needs 1ml/kcal Nutrition Intervention Change Diet Order: Continue TF Nutrition Support: Vital HP at 65ml/hr with 50ml water flush q4h. Kcal 1,560 Protein (gm) 136 Fluid (mL) 1,304 Goal #1 TF tolerance Goal #2 TF (at goal rate) to meet at least 75% energy and pro needs Anticipated Discharge Needs: Unable to identify at this time Follow-Up By: 07/14/20 Additional Comments F/U TF tolerance
[2020-07-14] MEDS ORDERED: POTASSIUM CHLORIDE 10 MEQ 10 MEQ/100 ML BAG IV SCH (11:00)
[2020-07-14] MEDS ORDERED: MAGNESIUM SULFATE 2 GM/50 ML BAG IV ONE (11:00)
[2020-07-14] MEDS ORDERED: SENNOSIDES 8.6 MG TAB PO PRN (11:00)
[2020-07-14] MEDS: POTASSIUM CHLORIDE 20 MEQ 20 MEQ/100 ML BAG IV SCH ×2 (11:05→13:13)
--- NOTE | 2020-07-14 13:24 | Progress Note ---
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 - continue care as below otherwise; - wean Levophed for target MAP > 65 mmHg - continue to wean supplemental oxygen for target O2 sat's > 92% acutely - continue Seroquel at 300 mg po tid - continue midodrine re: hypotension - keep peep at 8 - continue bid protonix - continue bowel regimen - metoprolol 5 mg IV q6h prn pulse > 130/min - aspiration precautions - continue bronchodilators with pulmonary hygiene per RT - accuchecks with glycemic control per SSI (While critically ill target blood glucose of 140-180 mg/dL; avoid hypoglycemia) - continue enteral nutritional support at goal rate as tolerated - repeat COVID-19 testing is negative X 2 - continue Zinc & Vit C supplementaion - wean systemic steroids for Asthma / severe COVID infection - continue empiric full dose anticoagulation re: elevated d-dimers / hypercoagulable state - NOT a candidate for COVID convalescent plasma - completed remdesivir dosing (total 5 days) - empiric AB's coverage per ID rec's - avoid nephrotoxins, renally dose all medications - continue to avoid benzodiazepine's, reduce the possibility of delirium - continue wound care per RN / WCN - prn analgesia per CPOT score - Maintenance of sleep-wake cycle, avoid delirium - continue to avoid benzodiazepine's, reduce the possibility of delirium - aspiration precautions - G.I. & VTE prophylaxis - PT/OT/ROM exercises - continue mobility protocols for pressure ulcer prophylaxis - Monitor hemodynamics closely - continue other care per attending / other consultants - discharge planning ongoing concurrently .... Re-evaluate in am & prn CONDITION: CRITICAL PROGNOSIS: GUARDED CODE STATUS: FULL CODE The high probability of a clinically significant, sudden or life-threatening deterioration of the [respiratory, cardiovascular, hematologic & neurologic] system(s) required my full and direct attention, intervention and personal management. The aggregate critical care time was [32] minutes without overlap. Time includes spent on; [x] Data Review and interpretation [x] Patient assessment and monitoring of vital signs [x] Documentation [x] Medication orders and management Subjective Date of service: 07/14/20 Principal diagnosis: Ac hypoxemic resp failure; COVID-19; Severe Sepsis; Shaggy PNA; Alcohol Abuse Interval history: Patient is seen today for: Acute hypoxemic respiratory failure due to COVID-19; Severe Sepsis; Bilateral pneumonia; Alcohol dependence; Elevated liver function tests Seen and examined at bedside; 24hour events reviewed; nursing and respiratory care staff consulted; no adverse overnight events reported to me; resting in bed; doing well post extubation; placed on BIPAP overnight; his insight and judgement still a little suspect; denies chest pain; No N/V/F/C Objective Vital Signs - 12hr 07/14/20 07/14/20 07/14/20 01:30 02:00 02:30 Temperature Pulse Rate 103 H 100 H 101 H Pulse Rate [ From Monitor] Respiratory 31 H 22 21 Rate Blood Pressure 124/76 124/69 122/70 O2 Sat by Pulse 100 100 100 Oximetry 07/14/20 07/14/20 07/14/20 03:00 03:30 04:00 Temperature 98.8 F Pulse Rate 103 H 101 H 99 H Pulse Rate [ 86 From Monitor] Respiratory 22 18 19 Rate Blood Pressure 128/71 122/71 131/73 O2 Sat by Pulse 100 100 100 Oximetry 07/14/20 07/14/20 07/14/20 04:30 05:00 05:30 Temperature Pulse Rate 102 H 99 H 99 H Pulse Rate [ From Monitor] Respiratory 18 21 19 Rate Blood Pressure 117/74 127/72 123/70 O2 Sat by Pulse 100 100 100 Oximetry 07/14/20 07/14/20 07/14/20 06:00 08:36 12:19 Temperature Pulse Rate 97 H 97 H Pulse Rate [ From Monitor] Respiratory 23 23 Rate Blood Pressure 131/72 131/72 O2 Sat by Pulse 100 100 100 Oximetry Constitutional: no acute distress, other (middle aged obese male with mildly increased respiratory effort at rest ) Eyes: non-icteric ENT: oropharynx moist, other (extubated) Neck: supple, no JVD Effort: mildly labored Ascultation: Bilateral: diminished breath sounds, rhonchi (scant), other (right chest tube) Percussion: Bilateral: not dull Cardiovascular: regular rate and rhythm, other (No R/M) Gastrointestinal: normoactive bowel sounds, soft, non-tender, non-distended (protuberant), other (distended and firm) Integumentary: normal Extremities: no cyanosis, no edema, pulses normal, no ischemia or petechiae Neurologic: non-focal exam (non focal grossly; weak), pupils equal and round, CN II-XII normal, motor strength normal and (very weak ) Psychiatric: mood appropriate, affect normal CBC and BMP: 07/13/20 08:31 07/15/20 05:31 ABG, PT/INR, D-dimer: ABG ABG pH 7.477 (7.320-7.450) H 07/13/20 13:52 POC ABG pCO2 54.4 mmHg (32.0-48.0) H 07/13/20 13:52 ABG pCO2 53.1 mm Hg 07/08/20 Unknown POC ABG pO2 126.8 mmHg (83-108) H 07/13/20 13:52 ABG pO2 75.3 mm Hg (80.0-90.0) L 07/08/20 Unknown POC ABG HCO3 39.3 07/13/20 13:52 ABG O2 Saturation 96.5 % (95.0-99.0) 07/08/20 Unknown PT/INR, D-dimer PT 11.8 Sec. (12.2-14.9) L 06/22/20 14:29 INR 0.88 (0.87-1.13) 06/22/20 14:29 D-Dimer 1887.82 ng/mlDDU (0-234) H 05/20/20 08:16 Abnormal lab findings: Abnormal Labs 05/09/20 05/09/20 05/09/20 12:59 12:59 12:59 WBC 11.8 H RBC Hgb Hct MCV 96 H MCH 34 H MCHC 35 H RDW Lymph % (Auto) 6.9 L [place] % (Auto) Lymph # (Auto) 0.8 L [place] # (Auto) Baso # (Auto) Seg Neutrophils % 87.5 H Seg Neuts % (Manual) Lymphocytes % (Manual) Nucleated RBC % Seg Neutrophils # 10.3 H Seg Neutrophils # Man Lymphocytes # (Manual) Monocytes # (Manual) Eosinophils # (Manual) PT INR APTT D-Dimer Heparin Anti-Xa Level ABG pH POC ABG pCO2 POC ABG pO2 ABG pO2 ABG HCO3 ABG O2 Saturation ABG Base Excess ABG Hemoglobin ABG Oxyhemoglobin ABG Sodium ABG Potassium ABG Chloride ABG Glucose Oxyhemoglobin Carboxyhemoglobin Sodium 130 L Potassium 3.5 L Chloride 86.4 L Carbon Dioxide BUN 33 H Creatinine 2.3 H Glucose 156 H POC Glucose Lactic Acid Calcium Magnesium Ferritin Total Bilirubin 3.40 H Direct Bilirubin 1.7 H AST 385 H ALT 134 H Alkaline Phosphatase Lactate Dehydrogenase C-Reactive Protein Total Protein Albumin 3.0 L Triglycerides Lipase Arterial Blood Glucose Arterial Blood Ionized Calcium Urine WBC (Auto) Coronavirus (PCR) SARS-CoV-2 IgG Ab Crossmatch 05/09/20 05/09/20 05/09/20 12:59 12:59 12:59 WBC RBC Hgb Hct MCV MCH MCHC RDW Lymph % (Auto) [place] % (Auto) Lymph # (Auto) [place] # (Auto) Baso # (Auto) Seg Neutrophils % Seg Neuts % (Manual) Lymphocytes % (Manual) Nucleated RBC % Seg Neutrophils # Seg Neutrophils # Man Lymphocytes # (Manual) Monocytes # (Manual) Eosinophils # (Manual) PT INR APTT D-Dimer 3242.51 H Heparin Anti-Xa Level ABG pH POC ABG pCO2 POC ABG pO2 ABG pO2 ABG HCO3 ABG O2 Saturation ABG Base Excess ABG Hemoglobin ABG Oxyhemoglobin ABG Sodium ABG Potassium ABG Chloride ABG Glucose Oxyhemoglobin Carboxyhemoglobin Sodium Potassium Chloride Carbon Dioxide BUN Creatinine Glucose 158 H POC Glucose Lactic Acid 3.50 H* Calcium Magnesium Ferritin Total Bilirubin Direct Bilirubin AST ALT Alkaline Phosphatase Lactate Dehydrogenase 2166 H C-Reactive Protein 39.00 H Total Protein Albumin Triglycerides Lipase Arterial Blood Glucose Arterial Blood Ionized Calcium Urine WBC (Auto) Coronavirus (PCR) SARS-CoV-2 IgG Ab Crossmatch 05/09/20 05/09/20 05/09/20 12:59 14:20 14:20 WBC RBC Hgb Hct MCV MCH MCHC RDW Lymph % (Auto) [place] % (Auto) Lymph # (Auto) [place] # (Auto) Baso # (Auto) Seg Neutrophils % Seg Neuts % (Manual) Lymphocytes % (Manual) Nucleated RBC % Seg Neutrophils # Seg Neutrophils # Man Lymphocytes # (Manual) Monocytes # (Manual) Eosinophils # (Manual) PT INR APTT D-Dimer 2861.78 H Heparin Anti-Xa Level ABG pH POC ABG pCO2 POC ABG pO2 ABG pO2 ABG HCO3 ABG O2 Saturation ABG Base Excess ABG Hemoglobin ABG Oxyhemoglobin ABG Sodium ABG Potassium ABG Chloride ABG Glucose Oxyhemoglobin Carboxyhemoglobin Sodium Potassium Chloride Carbon Dioxide BUN Creatinine Glucose POC Glucose Lactic Acid 2.20 H* Calcium Magnesium Ferritin 15011.0 H Total Bilirubin Direct Bilirubin AST ALT Alkaline Phosphatase Lactate Dehydrogenase C-Reactive Protein Total Protein Albumin Triglycerides Lipase Arterial Blood Glucose Arterial Blood Ionized Calcium Urine WBC (Auto) Coronavirus (PCR) SARS-CoV-2 IgG Ab Crossmatch 05/09/20 05/09/20 05/09/20 14:20 14:20 15:56 WBC RBC Hgb Hct MCV MCH MCHC RDW Lymph % (Auto) [place] % (Auto) Lymph # (Auto) [place] # (Auto) Baso # (Auto) Seg Neutrophils % Seg Neuts % (Manual) Lymphocytes % (Manual) Nucleated RBC % Seg Neutrophils # Seg Neutrophils # Man Lymphocytes # (Manual) Monocytes # (Manual) Eosinophils # (Manual) PT INR APTT D-Dimer Heparin Anti-Xa Level ABG pH POC ABG pCO2 POC ABG pO2 57.3 L ABG pO2 ABG HCO3 ABG O2 Saturation ABG Base Excess ABG Hemoglobin ABG Oxyhemoglobin 86.3 L ABG Sodium 129.9 L ABG Potassium ABG Chloride ABG Glucose 146 H Oxyhemoglobin Carboxyhemoglobin Sodium Potassium Chloride Carbon Dioxide BUN Creatinine Glucose 143 H POC Glucose Lactic Acid Calcium Magnesium Ferritin 74506.0 H Total Bilirubin Direct Bilirubin AST ALT Alkaline Phosphatase Lactate Dehydrogenase 1953 H C-Reactive Protein 33.50 H Total Protein Albumin Triglycerides Lipase Arterial Blood Glucose 146 H Arterial Blood Ionized Calcium 3.9 L Urine WBC (Auto) Coronavirus (PCR) SARS-CoV-2 IgG Ab Crossmatch 05/10/20 05/10/20 05/10/20 10:32 10:32 18:50 WBC 15.4 H RBC Hgb Hct MCV 97 H MCH 33 H MCHC RDW 13.1 L Lymph % (Auto) [place] % (Auto) Lymph # (Auto) [place] # (Auto) Baso # (Auto) Seg Neutrophils % Seg Neuts % (Manual) 89.0 H Lymphocytes % (Manual) 8.0 L Nucleated RBC % Seg Neutrophils # Seg Neutrophils # Man 13.7 H Lymphocytes # (Manual) Monocytes # (Manual) Eosinophils # (Manual) PT INR APTT D-Dimer Heparin Anti-Xa Level ABG pH POC ABG pCO2 POC ABG pO2 ABG pO2 ABG HCO3 ABG O2 Saturation ABG Base Excess ABG Hemoglobin ABG Oxyhemoglobin ABG Sodium ABG Potassium ABG Chloride ABG Glucose Oxyhemoglobin Carboxyhemoglobin Sodium 136 L Potassium Chloride 97.4 L Carbon Dioxide BUN 37 H Creatinine 1.7 H Glucose 209 H POC Glucose Lactic Acid Calcium Magnesium Ferritin > 2000.0 H Total Bilirubin Direct Bilirubin AST ALT Alkaline Phosphatase Lactate Dehydrogenase C-Reactive Protein Total Protein Albumin Triglycerides Lipase Arterial Blood Glucose Arterial Blood Ionized Calcium Urine WBC (Auto) Coronavirus (PCR) SARS-CoV-2 IgG Ab Crossmatch 05/10/20 05/10/20 05/10/20 18:50 19:00 Unknown WBC RBC Hgb Hct MCV MCH MCHC RDW Lymph % (Auto) [place] % (Auto) Lymph # (Auto) [place] # (Auto) Baso # (Auto) Seg Neutrophils % Seg Neuts % (Manual) Lymphocytes % (Manual) Nucleated RBC % Seg Neutrophils # Seg Neutrophils # Man Lymphocytes # (Manual) Monocytes # (Manual) Eosinophils # (Manual) PT INR APTT D-Dimer > 91676 H Heparin Anti-Xa Level ABG pH POC ABG pCO2 POC ABG pO2 ABG pO2 ABG HCO3 ABG O2 Saturation ABG Base Excess ABG Hemoglobin ABG Oxyhemoglobin ABG Sodium ABG Potassium ABG Chloride ABG Glucose Oxyhemoglobin Carboxyhemoglobin Sodium Potassium Chloride Carbon Dioxide BUN Creatinine Glucose POC Glucose Lactic Acid Calcium Magnesium Ferritin Total Bilirubin Direct Bilirubin AST ALT Alkaline Phosphatase Lactate Dehydrogenase 1879 H C-Reactive Protein 24.80 H Total Protein Albumin Triglycerides Lipase Arterial Blood Glucose Arterial Blood Ionized Calcium Urine WBC (Auto) 11.0 H Coronavirus (PCR) SARS-CoV-2 IgG Ab Crossmatch 05/10/20 05/11/20 05/11/20 Unknown 07:30 07:30 WBC RBC Hgb Hct MCV MCH MCHC RDW Lymph % (Auto) [place] % (Auto) Lymph # (Auto) [place] # (Auto) Baso # (Auto) Seg Neutrophils % Seg Neuts % (Manual) Lymphocytes % (Manual) Nucleated RBC % Seg Neutrophils # Seg Neutrophils # Man Lymphocytes # (Manual) Monocytes # (Manual) Eosinophils # (Manual) PT INR APTT D-Dimer > 2000 H Heparin Anti-Xa Level ABG pH POC ABG pCO2 POC ABG pO2 ABG pO2 ABG HCO3 ABG O2 Saturation ABG Base Excess ABG Hemoglobin ABG Oxyhemoglobin ABG Sodium ABG Potassium ABG Chloride ABG Glucose Oxyhemoglobin Carboxyhemoglobin Sodium Potassium Chloride 96.3 L Carbon Dioxide BUN 36 H Creatinine Glucose 161 H POC Glucose Lactic Acid Calcium 8.3 L Magnesium Ferritin Total Bilirubin 1.50 H Direct Bilirubin 0.6 H AST 178 H ALT 111 H Alkaline Phosphatase Lactate Dehydrogenase C-Reactive Protein Total Protein Albumin 3.0 L Triglycerides Lipase Arterial Blood Glucose Arterial Blood Ionized Calcium Urine WBC (Auto) Coronavirus (PCR) Positive A SARS-CoV-2 IgG Ab Crossmatch 05/11/20 05/11/20 05/11/20 07:30 07:30 07:30 WBC RBC Hgb Hct MCV MCH MCHC RDW Lymph % (Auto) [place] % (Auto) Lymph # (Auto) [place] # (Auto) Baso # (Auto) Seg Neutrophils % Seg Neuts % (Manual) Lymphocytes % (Manual) Nucleated RBC % Seg Neutrophils # Seg Neutrophils # Man Lymphocytes # (Manual) Monocytes # (Manual) Eosinophils # (Manual) PT INR APTT D-Dimer Heparin Anti-Xa Level ABG pH POC ABG pCO2 POC ABG pO2 ABG pO2 ABG HCO3 ABG O2 Saturation ABG Base Excess ABG Hemoglobin ABG Oxyhemoglobin ABG Sodium ABG Potassium ABG Chloride ABG Glucose Oxyhemoglobin Carboxyhemoglobin Sodium Potassium Chloride Carbon Dioxide BUN Creatinine Glucose POC Glucose Lactic Acid Calcium Magnesium Ferritin 31519.0 H Total Bilirubin Direct Bilirubin AST ALT Alkaline Phosphatase Lactate Dehydrogenase 1523 H C-Reactive Protein 12.90 H Total Protein Albumin Triglycerides Lipase Arterial Blood Glucose Arterial Blood Ionized Calcium Urine WBC (Auto) Coronavirus (PCR) SARS-CoV-2 IgG Ab Reactive A Crossmatch 05/13/20 05/13/20 05/15/20 05:20 05:20 08:15 WBC RBC Hgb Hct MCV MCH MCHC RDW Lymph % (Auto) [place] % (Auto) Lymph # (Auto) [place] # (Auto) Baso # (Auto) Seg Neutrophils % Seg Neuts % (Manual) Lymphocytes % (Manual) Nucleated RBC % Seg Neutrophils # Seg Neutrophils # Man Lymphocytes # (Manual) Monocytes # (Manual) Eosinophils # (Manual) PT INR APTT D-Dimer > 20651 H 5318.28 H Heparin Anti-Xa Level ABG pH POC ABG pCO2 POC ABG pO2 ABG pO2 ABG HCO3 ABG O2 Saturation ABG Base Excess ABG Hemoglobin ABG Oxyhemoglobin ABG Sodium ABG Potassium ABG Chloride ABG Glucose Oxyhemoglobin Carboxyhemoglobin Sodium Potassium Chloride Carbon Dioxide 32 H BUN 30 H Creatinine Glucose 156 H POC Glucose Lactic Acid Calcium Magnesium 2.60 H Ferritin Total Bilirubin 1.40 H Direct Bilirubin AST 121 H ALT 119 H Alkaline Phosphatase Lactate Dehydrogenase 957 H C-Reactive Protein 4.00 H Total Protein Albumin 3.0 L Triglycerides Lipase Arterial Blood Glucose Arterial Blood Ionized Calcium Urine WBC (Auto) Coronavirus (PCR) SARS-CoV-2 IgG Ab Crossmatch 05/15/20 05/15/20 05/15/20 08:15 08:15 08:15 WBC 12.4 H RBC Hgb Hct MCV 98 H MCH 33 H MCHC RDW Lymph % (Auto) 9.7 L [place] % (Auto) Lymph # (Auto) [place] # (Auto) Baso # (Auto) Seg Neutrophils % 86.8 H Seg Neuts % (Manual) Lymphocytes % (Manual) Nucleated RBC % Seg Neutrophils # 10.8 H Seg Neutrophils # Man Lymphocytes # (Manual) Monocytes # (Manual) Eosinophils # (Manual) PT INR APTT D-Dimer Heparin Anti-Xa Level ABG pH POC ABG pCO2 POC ABG pO2 ABG pO2 ABG HCO3 ABG O2 Saturation ABG Base Excess ABG Hemoglobin ABG Oxyhemoglobin ABG Sodium ABG Potassium ABG Chloride ABG Glucose Oxyhemoglobin Carboxyhemoglobin Sodium Potassium Chloride 94.8 L Carbon Dioxide 32 H BUN 22 H Creatinine Glucose 115 H POC Glucose Lactic Acid Calcium 8.3 L Magnesium Ferritin 2494.0 H Total Bilirubin Direct Bilirubin AST 73 H ALT 121 H Alkaline Phosphatase Lactate Dehydrogenase 835 H C-Reactive Protein 3.40 H Total Protein 6.1 L Albumin 3.0 L Triglycerides Lipase Arterial Blood Glucose Arterial Blood Ionized Calcium Urine WBC (Auto) Coronavirus (PCR) SARS-CoV-2 IgG Ab Crossmatch 05/17/20 05/17/20 05/17/20 05:50 05:50 05:50 WBC RBC Hgb Hct MCV MCH MCHC RDW Lymph % (Auto) [place] % (Auto) Lymph # (Auto) [place] # (Auto) Baso # (Auto) Seg Neutrophils % Seg Neuts % (Manual) Lymphocytes % (Manual) Nucleated RBC % Seg Neutrophils # Seg Neutrophils # Man Lymphocytes # (Manual) Monocytes # (Manual) Eosinophils # (Manual) PT INR APTT D-Dimer 2911.42 H Heparin Anti-Xa Level ABG pH POC ABG pCO2 POC ABG pO2 ABG pO2 ABG HCO3 ABG O2 Saturation ABG Base Excess ABG Hemoglobin ABG Oxyhemoglobin ABG Sodium ABG Potassium ABG Chloride ABG Glucose Oxyhemoglobin Carboxyhemoglobin Sodium 136 L Potassium Chloride 96.0 L Carbon Dioxide 34 H BUN 22 H Creatinine Glucose 140 H POC Glucose Lactic Acid Calcium Magnesium Ferritin 2082.0 H Total Bilirubin Direct Bilirubin AST ALT 75 H Alkaline Phosphatase Lactate Dehydrogenase 601 H C-Reactive Protein 2.70 H Total Protein Albumin 2.9 L Triglycerides Lipase Arterial Blood Glucose Arterial Blood Ionized Calcium Urine WBC (Auto) Coronavirus (PCR) SARS-CoV-2 IgG Ab Crossmatch 05/17/20 05/18/20 05/20/20 05:50 12:22 08:16 WBC RBC Hgb Hct MCV 98 H MCH 33 H MCHC RDW Lymph % (Auto) 8.0 L [place] % (Auto) Lymph # (Auto) 0.8 L [place] # (Auto) Baso # (Auto) Seg Neutrophils % 89.3 H Seg Neuts % (Manual) Lymphocytes % (Manual) Nucleated RBC % Seg Neutrophils # 8.8 H Seg Neutrophils # Man Lymphocytes # (Manual) Monocytes # (Manual) Eosinophils # (Manual) PT INR APTT D-Dimer 1887.82 H Heparin Anti-Xa Level ABG pH POC ABG pCO2 POC ABG pO2 ABG pO2 ABG HCO3 ABG O2 Saturation ABG Base Excess ABG Hemoglobin ABG Oxyhemoglobin ABG Sodium ABG Potassium ABG Chloride ABG Glucose Oxyhemoglobin Carboxyhemoglobin Sodium Potassium Chloride Carbon Dioxide BUN Creatinine Glucose POC Glucose 178 H Lactic Acid Calcium Magnesium Ferritin Total Bilirubin Direct Bilirubin AST ALT Alkaline Phosphatase Lactate Dehydrogenase C-Reactive Protein Total Protein Albumin Triglycerides Lipase Arterial Blood Glucose Arterial Blood Ionized Calcium Urine WBC (Auto) Coronavirus (PCR) SARS-CoV-2 IgG Ab Crossmatch 05/20/20 05/20/20 05/21/20 08:16 08:16 21:10 WBC RBC Hgb Hct MCV MCH MCHC RDW Lymph % (Auto) [place] % (Auto) Lymph # (Auto) [place] # (Auto) Baso # (Auto) Seg Neutrophils % Seg Neuts % (Manual) Lymphocytes % (Manual) Nucleated RBC % Seg Neutrophils # Seg Neutrophils # Man Lymphocytes # (Manual) Monocytes # (Manual) Eosinophils # (Manual) PT INR APTT D-Dimer Heparin Anti-Xa Level ABG pH 7.483 H POC ABG pCO2 POC ABG pO2 ABG pO2 50.0 L ABG HCO3 27.0 H ABG O2 Saturation 86.2 L ABG Base Excess 3.7 H ABG Hemoglobin ABG Oxyhemoglobin ABG Sodium ABG Potassium ABG Chloride ABG Glucose Oxyhemoglobin 84.2 L Carboxyhemoglobin Sodium Potassium Chloride Carbon Dioxide BUN Creatinine Glucose POC Glucose Lactic Acid Calcium Magnesium Ferritin 1960.0 H Total Bilirubin Direct Bilirubin AST ALT Alkaline Phosphatase Lactate Dehydrogenase 705 H C-Reactive Protein 3.10 H Total Protein Albumin Triglycerides Lipase Arterial Blood Glucose Arterial Blood Ionized Calcium Urine WBC (Auto) Coronavirus (PCR) SARS-CoV-2 IgG Ab Crossmatch 05/22/20 05/22/20 05/22/20 04:01 07:53 07:53 WBC 19.2 H RBC Hgb Hct MCV 98 H MCH 34 H MCHC RDW Lymph % (Auto) [place] % (Auto) Lymph # (Auto) [place] # (Auto) Baso # (Auto) Seg Neutrophils % Seg Neuts % (Manual) 96.0 H Lymphocytes % (Manual) 1.0 L Nucleated RBC % Seg Neutrophils # Seg Neutrophils # Man 18.4 H Lymphocytes # (Manual) 0.2 L Monocytes # (Manual) Eosinophils # (Manual) PT INR APTT D-Dimer Heparin Anti-Xa Level ABG pH POC ABG pCO2 53.8 H POC ABG pO2 125.5 H ABG pO2 ABG HCO3 ABG O2 Saturation ABG Base Excess ABG Hemoglobin ABG Oxyhemoglobin ABG Sodium 131.8 L ABG Potassium 4.8 H ABG Chloride 94.0 L ABG Glucose 163 H Oxyhemoglobin Carboxyhemoglobin Sodium 131 L Potassium Chloride 93.4 L Carbon Dioxide BUN 40 H Creatinine Glucose 176 H POC Glucose Lactic Acid Calcium Magnesium 2.70 H Ferritin Total Bilirubin 1.80 H Direct Bilirubin AST 45 H ALT 116 H Alkaline Phosphatase 181 H Lactate Dehydrogenase C-Reactive Protein Total Protein Albumin 2.6 L Triglycerides Lipase Arterial Blood Glucose 163 H Arterial Blood Ionized Calcium 4.5 L Urine WBC (Auto) Coronavirus (PCR) SARS-CoV-2 IgG Ab Crossmatch 11/05/24/20 05/24/20 04:17 03:07 04:08 WBC RBC Hgb Hct MCV MCH MCHC RDW Lymph % (Auto) [place] % (Auto) Lymph # (Auto) [place] # (Auto) Baso # (Auto) Seg Neutrophils % Seg Neuts % (Manual) Lymphocytes % (Manual) Nucleated RBC % Seg Neutrophils # Seg Neutrophils # Man Lymphocytes # (Manual) Monocytes # (Manual) Eosinophils # (Manual) PT INR APTT D-Dimer Heparin Anti-Xa Level ABG pH 7.328 L POC ABG pCO2 POC ABG pO2 ABG pO2 72.8 L 73.4 L ABG HCO3 31.0 H 34.0 H ABG O2 Saturation 93.5 L ABG Base Excess 3.5 H 7.7 H ABG Hemoglobin 13.3 L 12.1 L ABG Oxyhemoglobin ABG Sodium ABG Potassium ABG Chloride ABG Glucose Oxyhemoglobin 91.5 L 94.3 L Carboxyhemoglobin Sodium Potassium Chloride Carbon Dioxide BUN Creatinine Glucose POC Glucose 155 H Lactic Acid Calcium Magnesium Ferritin Total Bilirubin Direct Bilirubin AST ALT Alkaline Phosphatase Lactate Dehydrogenase C-Reactive Protein Total Protein Albumin Triglycerides Lipase Arterial Blood Glucose Arterial Blood Ionized Calcium Urine WBC (Auto) Coronavirus (PCR) SARS-CoV-2 IgG Ab Crossmatch 05/24/20 05/24/20 05/24/20 09:33 12:21 17:52 WBC RBC Hgb Hct MCV MCH MCHC RDW Lymph % (Auto) [place] % (Auto) Lymph # (Auto) [place] # (Auto) Baso # (Auto) Seg Neutrophils % Seg Neuts % (Manual) Lymphocytes % (Manual) Nucleated RBC % Seg Neutrophils # Seg Neutrophils # Man Lymphocytes # (Manual) Monocytes # (Manual) Eosinophils # (Manual) PT INR APTT D-Dimer Heparin Anti-Xa Level ABG pH POC ABG pCO2 POC ABG pO2 ABG pO2 ABG HCO3 ABG O2 Saturation ABG Base Excess ABG Hemoglobin ABG Oxyhemoglobin ABG Sodium ABG Potassium ABG Chloride ABG Glucose Oxyhemoglobin Carboxyhemoglobin Sodium Potassium Chloride Carbon Dioxide 34 H D BUN 28 H Creatinine 0.7 L Glucose 168 H POC Glucose 173 H 164 H Lactic Acid Calcium Magnesium Ferritin Total Bilirubin Direct Bilirubin AST ALT Alkaline Phosphatase Lactate Dehydrogenase C-Reactive Protein Total Protein Albumin Triglycerides Lipase Arterial Blood Glucose Arterial Blood Ionized Calcium Urine WBC (Auto) Coronavirus (PCR) SARS-CoV-2 IgG Ab Crossmatch 05/24/20 05/25/20 05/25/20 23:47 04:29 05:46 WBC RBC Hgb Hct MCV MCH MCHC RDW Lymph % (Auto) [place] % (Auto) Lymph # (Auto) [place] # (Auto) Baso # (Auto) Seg Neutrophils % Seg Neuts % (Manual) Lymphocytes % (Manual) Nucleated RBC % Seg Neutrophils # Seg Neutrophils # Man Lymphocytes # (Manual) Monocytes # (Manual) Eosinophils # (Manual) PT INR APTT D-Dimer Heparin Anti-Xa Level ABG pH POC ABG pCO2 68.6 H POC ABG pO2 ABG pO2 ABG HCO3 ABG O2 Saturation ABG Base Excess ABG Hemoglobin ABG Oxyhemoglobin ABG Sodium ABG Potassium 4.7 H ABG Chloride ABG Glucose 226 H Oxyhemoglobin Carboxyhemoglobin Sodium Potassium Chloride Carbon Dioxide BUN Creatinine Glucose POC Glucose 171 H 201 H Lactic Acid Calcium Magnesium Ferritin Total Bilirubin Direct Bilirubin AST ALT Alkaline Phosphatase Lactate Dehydrogenase C-Reactive Protein Total Protein Albumin Triglycerides Lipase Arterial Blood Glucose 226 H Arterial Blood Ionized Calcium Urine WBC (Auto) Coronavirus (PCR) SARS-CoV-2 IgG Ab Crossmatch 05/25/20 05/25/20 05/25/20 08:37 08:37 12:38 WBC 12.0 H RBC 3.64 L Hgb Hct MCV 99 H MCH 33 H MCHC RDW Lymph % (Auto) [place] % (Auto) Lymph # (Auto) [place] # (Auto) Baso # (Auto) Seg Neutrophils % Seg Neuts % (Manual) Lymphocytes % (Manual) Nucleated RBC % Seg Neutrophils # Seg Neutrophils # Man Lymphocytes # (Manual) Monocytes # (Manual) Eosinophils # (Manual) PT INR APTT D-Dimer Heparin Anti-Xa Level ABG pH POC ABG pCO2 POC ABG pO2 ABG pO2 ABG HCO3 ABG O2 Saturation ABG Base Excess ABG Hemoglobin ABG Oxyhemoglobin ABG Sodium ABG Potassium ABG Chloride ABG Glucose Oxyhemoglobin Carboxyhemoglobin Sodium Potassium Chloride 97.3 L Carbon Dioxide 35 H BUN 25 H Creatinine 0.7 L Glucose 191 H POC Glucose 182 H Lactic Acid Calcium Magnesium Ferritin Total Bilirubin Direct Bilirubin AST ALT Alkaline Phosphatase Lactate Dehydrogenase C-Reactive Protein Total Protein Albumin Triglycerides Lipase Arterial Blood Glucose Arterial Blood Ionized Calcium Urine WBC (Auto) Coronavirus (PCR) SARS-CoV-2 IgG Ab Crossmatch 05/25/20 05/26/20 05/26/20 18:16 00:06 04:50 WBC RBC Hgb Hct MCV MCH MCHC RDW Lymph % (Auto) [place] % (Auto) Lymph # (Auto) [place] # (Auto) Baso # (Auto) Seg Neutrophils % Seg Neuts % (Manual) Lymphocytes % (Manual) Nucleated RBC % Seg Neutrophils # Seg Neutrophils # Man Lymphocytes # (Manual) Monocytes # (Manual) Eosinophils # (Manual) PT INR APTT D-Dimer Heparin Anti-Xa Level ABG pH POC ABG pCO2 POC ABG pO2 ABG pO2 221.5 H ABG HCO3 40.4 H ABG O2 Saturation 99.3 H ABG Base Excess 12.8 H ABG Hemoglobin 10.4 L ABG Oxyhemoglobin ABG Sodium ABG Potassium ABG Chloride ABG Glucose Oxyhemoglobin Carboxyhemoglobin Sodium Potassium Chloride Carbon Dioxide BUN Creatinine Glucose POC Glucose 176 H 152 H Lactic Acid Calcium Magnesium Ferritin Total Bilirubin Direct Bilirubin AST ALT Alkaline Phosphatase Lactate Dehydrogenase C-Reactive Protein Total Protein Albumin Triglycerides Lipase Arterial Blood Glucose Arterial Blood Ionized Calcium Urine WBC (Auto) Coronavirus (PCR) SARS-CoV-2 IgG Ab Crossmatch 05/26/20 05/26/20 05/26/20 06:11 07:51 07:51 WBC 13.4 H RBC 3.64 L Hgb Hct MCV 98 H MCH 33 H MCHC RDW Lymph % (Auto) [place] % (Auto) Lymph # (Auto) [place] # (Auto) Baso # (Auto) Seg Neutrophils % Seg Neuts % (Manual) Lymphocytes % (Manual) Nucleated RBC % Seg Neutrophils # Seg Neutrophils # Man Lymphocytes # (Manual) Monocytes # (Manual) Eosinophils # (Manual) PT INR APTT D-Dimer Heparin Anti-Xa Level ABG pH POC ABG pCO2 POC ABG pO2 ABG pO2 ABG HCO3 ABG O2 Saturation ABG Base Excess ABG Hemoglobin ABG Oxyhemoglobin ABG Sodium ABG Potassium ABG Chloride ABG Glucose Oxyhemoglobin Carboxyhemoglobin Sodium Potassium Chloride 96.6 L Carbon Dioxide 39 H BUN 29 H Creatinine 0.7 L Glucose 174 H POC Glucose 165 H Lactic Acid Calcium Magnesium Ferritin Total Bilirubin Direct Bilirubin AST ALT Alkaline Phosphatase Lactate Dehydrogenase C-Reactive Protein Total Protein Albumin Triglycerides Lipase Arterial Blood Glucose Arterial Blood Ionized Calcium Urine WBC (Auto) Coronavirus (PCR) SARS-CoV-2 IgG Ab Crossmatch 05/26/20 05/27/20 05/27/20 23:23 03:43 05:29 WBC RBC Hgb Hct MCV MCH MCHC RDW Lymph % (Auto) [place] % (Auto) Lymph # (Auto) [place] # (Auto) Baso # (Auto) Seg Neutrophils % Seg Neuts % (Manual) Lymphocytes % (Manual) Nucleated RBC % Seg Neutrophils # Seg Neutrophils # Man Lymphocytes # (Manual) Monocytes # (Manual) Eosinophils # (Manual) PT INR APTT D-Dimer Heparin Anti-Xa Level ABG pH 7.480 H POC ABG pCO2 52.4 H POC ABG pO2 61.4 L ABG pO2 ABG HCO3 ABG O2 Saturation ABG Base Excess ABG Hemoglobin ABG Oxyhemoglobin ABG Sodium 134.9 L ABG Potassium ABG Chloride 95.0 L ABG Glucose 221 H Oxyhemoglobin Carboxyhemoglobin Sodium Potassium Chloride Carbon Dioxide BUN Creatinine Glucose POC Glucose 169 H 227 H Lactic Acid Calcium Magnesium Ferritin Total Bilirubin Direct Bilirubin AST ALT Alkaline Phosphatase Lactate Dehydrogenase C-Reactive Protein Total Protein Albumin Triglycerides Lipase Arterial Blood Glucose 221 H Arterial Blood Ionized Calcium 4.5 L Urine WBC (Auto) Coronavirus (PCR) SARS-CoV-2 IgG Ab Crossmatch 05/27/20 05/27/20 05/27/20 07:19 12:18 13:50 WBC RBC Hgb Hct MCV MCH MCHC RDW Lymph % (Auto) [place] % (Auto) Lymph # (Auto) [place] # (Auto) Baso # (Auto) Seg Neutrophils % Seg Neuts % (Manual) Lymphocytes % (Manual) Nucleated RBC % Seg Neutrophils # Seg Neutrophils # Man Lymphocytes # (Manual) Monocytes # (Manual) Eosinophils # (Manual) PT INR APTT D-Dimer Heparin Anti-Xa Level ABG pH POC ABG pCO2 POC ABG pO2 ABG pO2 ABG HCO3 ABG O2 Saturation ABG Base Excess ABG Hemoglobin ABG Oxyhemoglobin ABG Sodium ABG Potassium ABG Chloride ABG Glucose Oxyhemoglobin Carboxyhemoglobin Sodium Potassium Chloride Carbon Dioxide BUN Creatinine Glucose POC Glucose 114 H 148 H Lactic Acid Calcium Magnesium Ferritin Total Bilirubin Direct Bilirubin AST ALT Alkaline Phosphatase Lactate Dehydrogenase C-Reactive Protein Total Protein Albumin Triglycerides 247 H Lipase Arterial Blood Glucose Arterial Blood Ionized Calcium Urine WBC (Auto) Coronavirus (PCR) SARS-CoV-2 IgG Ab Crossmatch 05/28/20 05/28/2005/28/20 00:13 04:16 05:22 WBC RBC Hgb Hct MCV MCH MCHC RDW Lymph % (Auto) [place] % (Auto) Lymph # (Auto) [place] # (Auto) Baso # (Auto) Seg Neutrophils % Seg Neuts % (Manual) Lymphocytes % (Manual) Nucleated RBC % Seg Neutrophils # Seg Neutrophils # Man Lymphocytes # (Manual) Monocytes # (Manual) Eosinophils # (Manual) PT INR APTT D-Dimer Heparin Anti-Xa Level ABG pH POC ABG pCO2 64.4 H POC ABG pO2 60.5 L ABG pO2 ABG HCO3 ABG O2 Saturation ABG Base Excess ABG Hemoglobin ABG Oxyhemoglobin ABG Sodium ABG Potassium ABG Chloride 95.0 L ABG Glucose 209 H Oxyhemoglobin Carboxyhemoglobin Sodium Potassium Chloride Carbon Dioxide BUN Creatinine Glucose POC Glucose 155 H 186 H Lactic Acid Calcium Magnesium Ferritin Total Bilirubin Direct Bilirubin AST ALT Alkaline Phosphatase Lactate Dehydrogenase C-Reactive Protein Total Protein Albumin Triglycerides Lipase Arterial Blood Glucose 209 H Arterial Blood Ionized Calcium Urine WBC (Auto) Coronavirus (PCR) SARS-CoV-2 IgG Ab Crossmatch 05/28/20 05/28/20 05/29/20 12:45 17:39 00:37 WBC RBC Hgb Hct MCV MCH MCHC RDW Lymph % (Auto) [place] % (Auto) Lymph # (Auto) [place] # (Auto) Baso # (Auto) Seg Neutrophils % Seg Neuts % (Manual) Lymphocytes % (Manual) Nucleated RBC % Seg Neutrophils # Seg Neutrophils # Man Lymphocytes # (Manual) Monocytes # (Manual) Eosinophils # (Manual) PT INR APTT D-Dimer Heparin Anti-Xa Level ABG pH POC ABG pCO2 POC ABG pO2 ABG pO2 ABG HCO3 ABG O2 Saturation ABG Base Excess ABG Hemoglobin ABG Oxyhemoglobin ABG Sodium ABG Potassium ABG Chloride ABG Glucose Oxyhemoglobin Carboxyhemoglobin Sodium Potassium Chloride Carbon Dioxide BUN Creatinine Glucose POC Glucose 143 H 164 H 221 H Lactic Acid Calcium Magnesium Ferritin Total Bilirubin Direct Bilirubin AST ALT Alkaline Phosphatase Lactate Dehydrogenase C-Reactive Protein Total Protein Albumin Triglycerides Lipase Arterial Blood Glucose Arterial Blood Ionized Calcium Urine WBC (Auto) Coronavirus (PCR) SARS-CoV-2 IgG Ab Crossmatch 05/29/20 05/29/20 05/29/20 04:15 05:33 12:34 WBC RBC Hgb Hct MCV MCH MCHC RDW Lymph % (Auto) [place] % (Auto) Lymph # (Auto) [place] # (Auto) Baso # (Auto) Seg Neutrophils % Seg Neuts % (Manual) Lymphocytes % (Manual) Nucleated RBC % Seg Neutrophils # Seg Neutrophils # Man Lymphocytes # (Manual) Monocytes # (Manual) Eosinophils # (Manual) PT INR APTT D-Dimer Heparin Anti-Xa Level ABG pH 7.463 H POC ABG pCO2 56.3 H POC ABG pO2 81.2 L ABG pO2 ABG HCO3 ABG O2 Saturation ABG Base Excess ABG Hemoglobin ABG Oxyhemoglobin ABG Sodium ABG Potassium ABG Chloride 96.0 L ABG Glucose 194 H Oxyhemoglobin Carboxyhemoglobin Sodium Potassium Chloride Carbon Dioxide BUN Creatinine Glucose POC Glucose 133 H 221 H Lactic Acid Calcium Magnesium Ferritin Total Bilirubin Direct Bilirubin AST ALT Alkaline Phosphatase Lactate Dehydrogenase C-Reactive Protein Total Protein Albumin Triglycerides Lipase Arterial Blood Glucose 194 H Arterial Blood Ionized Calcium 4.5 L Urine WBC (Auto) Coronavirus (PCR) SARS-CoV-2 IgG Ab Crossmatch 05/29/20 05/30/20 05/30/20 18:07 00:12 05:38 WBC RBC Hgb Hct MCV MCH MCHC RDW Lymph % (Auto) [place] % (Auto) Lymph # (Auto) [place] # (Auto) Baso # (Auto) Seg Neutrophils % Seg Neuts % (Manual) Lymphocytes % (Manual) Nucleated RBC % Seg Neutrophils # Seg Neutrophils # Man Lymphocytes # (Manual) Monocytes # (Manual) Eosinophils # (Manual) PT INR APTT D-Dimer Heparin Anti-Xa Level ABG pH POC ABG pCO2 POC ABG pO2 ABG pO2 ABG HCO3 ABG O2 Saturation ABG Base Excess ABG Hemoglobin ABG Oxyhemoglobin ABG Sodium ABG Potassium ABG Chloride ABG Glucose Oxyhemoglobin Carboxyhemoglobin Sodium Potassium Chloride Carbon Dioxide BUN Creatinine Glucose POC Glucose 162 H 190 H 208 H Lactic Acid Calcium Magnesium Ferritin Total Bilirubin Direct Bilirubin AST ALT Alkaline Phosphatase Lactate Dehydrogenase C-Reactive Protein Total Protein Albumin Triglycerides Lipase Arterial Blood Glucose Arterial Blood Ionized Calcium Urine WBC (Auto) Coronavirus (PCR) SARS-CoV-2 IgG Ab Crossmatch 05/30/20 05/30/20 05/30/20 09:30 11:35 11:54 WBC 12.4 H RBC 3.48 L Hgb 11.3 L Hct 34.6 L MCV 99 H MCH 33 H MCHC RDW Lymph % (Auto) [place] % (Auto) Lymph # (Auto) [place] # (Auto) Baso # (Auto) Seg Neutrophils % Seg Neuts % (Manual) Lymphocytes % (Manual) Nucleated RBC % Seg Neutrophils # Seg Neutrophils # Man Lymphocytes # (Manual) Monocytes # (Manual) Eosinophils # (Manual) PT INR APTT D-Dimer Heparin Anti-Xa Level ABG pH 7.455 H POC ABG pCO2 57.5 H POC ABG pO2 81.5 L ABG pO2 ABG HCO3 ABG O2 Saturation ABG Base Excess ABG Hemoglobin ABG Oxyhemoglobin ABG Sodium ABG Potassium ABG Chloride 96.0 L ABG Glucose 204 H Oxyhemoglobin Carboxyhemoglobin Sodium Potassium Chloride Carbon Dioxide BUN Creatinine Glucose POC Glucose 183 H Lactic Acid Calcium Magnesium Ferritin Total Bilirubin Direct Bilirubin AST ALT Alkaline Phosphatase Lactate Dehydrogenase C-Reactive Protein Total Protein Albumin Triglycerides Lipase Arterial Blood Glucose 204 H Arterial Blood Ionized Calcium Urine WBC (Auto) Coronavirus (PCR) SARS-CoV-2 IgG Ab Crossmatch 05/30/20 05/31/20 05/31/20 18:01 00:10 03:22 WBC RBC Hgb Hct MCV MCH MCHC RDW Lymph % (Auto) [place] % (Auto) Lymph # (Auto) [place] # (Auto) Baso # (Auto) Seg Neutrophils % Seg Neuts % (Manual) Lymphocytes % (Manual) Nucleated RBC % Seg Neutrophils # Seg Neutrophils # Man Lymphocytes # (Manual) Monocytes # (Manual) Eosinophils # (Manual) PT INR APTT D-Dimer Heparin Anti-Xa Level ABG pH POC ABG pCO2 60.4 H POC ABG pO2 71.5 L ABG pO2 ABG HCO3 ABG O2 Saturation ABG Base Excess ABG Hemoglobin ABG Oxyhemoglobin ABG Sodium ABG Potassium ABG Chloride 96.0 L ABG Glucose 169 H Oxyhemoglobin Carboxyhemoglobin Sodium Potassium Chloride Carbon Dioxide BUN Creatinine Glucose POC Glucose 184 H 135 H Lactic Acid Calcium Magnesium Ferritin Total Bilirubin Direct Bilirubin AST ALT Alkaline Phosphatase Lactate Dehydrogenase C-Reactive Protein Total Protein Albumin Triglycerides Lipase Arterial Blood Glucose 169 H Arterial Blood Ionized Calcium 4.5 L Urine WBC (Auto) Coronavirus (PCR) SARS-CoV-2 IgG Ab Crossmatch 05/31/20 05/31/20 05/31/20 05:24 11:18 14:41 WBC RBC Hgb Hct MCV MCH MCHC RDW Lymph % (Auto) [place] % (Auto) Lymph # (Auto) [place] # (Auto) Baso # (Auto) Seg Neutrophils % Seg Neuts % (Manual) Lymphocytes % (Manual) Nucleated RBC % Seg Neutrophils # Seg Neutrophils # Man Lymphocytes # (Manual) Monocytes # (Manual) Eosinophils # (Manual) PT INR APTT D-Dimer Heparin Anti-Xa Level ABG pH POC ABG pCO2 POC ABG pO2 ABG pO2 ABG HCO3 ABG O2 Saturation ABG Base Excess ABG Hemoglobin ABG Oxyhemoglobin ABG Sodium ABG Potassium ABG Chloride ABG Glucose Oxyhemoglobin Carboxyhemoglobin Sodium Potassium Chloride 96.8 L Carbon Dioxide 37 H BUN 31 H Creatinine 0.6 L Glucose 213 H POC Glucose 164 H 208 H Lactic Acid Calcium Magnesium Ferritin Total Bilirubin Direct Bilirubin AST ALT Alkaline Phosphatase Lactate Dehydrogenase C-Reactive Protein Total Protein Albumin Triglycerides Lipase Arterial Blood Glucose Arterial Blood Ionized Calcium Urine WBC (Auto) Coronavirus (PCR) SARS-CoV-2 IgG Ab Crossmatch 05/31/20 05/31/20 06/01/20 17:37 23:47 03:48 WBC RBC Hgb Hct MCV MCH MCHC RDW Lymph % (Auto) [place] % (Auto) Lymph # (Auto) [place] # (Auto) Baso # (Auto) Seg Neutrophils % Seg Neuts % (Manual) Lymphocytes % (Manual) Nucleated RBC % Seg Neutrophils # Seg Neutrophils # Man Lymphocytes # (Manual) Monocytes # (Manual) Eosinophils # (Manual) PT INR APTT D-Dimer Heparin Anti-Xa Level ABG pH POC ABG pCO2 59.7 H POC ABG pO2 73.9 L ABG pO2 ABG HCO3 ABG O2 Saturation ABG Base Excess ABG Hemoglobin ABG Oxyhemoglobin ABG Sodium ABG Potassium ABG Chloride 95.0 L ABG Glucose 256 H Oxyhemoglobin Carboxyhemoglobin Sodium Potassium Chloride Carbon Dioxide BUN Creatinine Glucose POC Glucose 168 H 178 H Lactic Acid Calcium Magnesium Ferritin Total Bilirubin Direct Bilirubin AST ALT Alkaline Phosphatase Lactate Dehydrogenase C-Reactive Protein Total Protein Albumin Triglycerides Lipase Arterial Blood Glucose 256 H Arterial Blood Ionized Calcium Urine WBC (Auto) Coronavirus (PCR) SARS-CoV-2 IgG Ab Crossmatch 06/01/20 06/01/20 06/01/20 05:01 07:47 07:47 WBC 14.4 H RBC 3.46 L Hgb 11.1 L Hct 34.3 L MCV 99 H MCH MCHC RDW Lymph % (Auto) [place] % (Auto) Lymph # (Auto) [place] # (Auto) Baso # (Auto) Seg Neutrophils % Seg Neuts % (Manual) 86.0 H Lymphocytes % (Manual) 9.0 L Nucleated RBC % Seg Neutrophils # Seg Neutrophils # Man 12.4 H Lymphocytes # (Manual) Monocytes # (Manual) Eosinophils # (Manual) PT INR APTT D-Dimer Heparin Anti-Xa Level ABG pH POC ABG pCO2 POC ABG pO2 ABG pO2 ABG HCO3 ABG O2 Saturation ABG Base Excess ABG Hemoglobin ABG Oxyhemoglobin ABG Sodium ABG Potassium ABG Chloride ABG Glucose Oxyhemoglobin Carboxyhemoglobin Sodium Potassium Chloride Carbon Dioxide BUN Creatinine Glucose POC Glucose 197 H Lactic Acid Calcium Magnesium Ferritin Total Bilirubin Direct Bilirubin AST ALT Alkaline Phosphatase Lactate Dehydrogenase C-Reactive Protein Total Protein Albumin Triglycerides 244 H Lipase Arterial Blood Glucose Arterial Blood Ionized Calcium Urine WBC (Auto) Coronavirus (PCR) SARS-CoV-2 IgG Ab Crossmatch 06/01/20 06/01/20 06/01/20 07:47 11:46 18:15 WBC RBC Hgb Hct MCV MCH MCHC RDW Lymph % (Auto) [place] % (Auto) Lymph # (Auto) [place] # (Auto) Baso # (Auto) Seg Neutrophils % Seg Neuts % (Manual) Lymphocytes % (Manual) Nucleated RBC % Seg Neutrophils # Seg Neutrophils # Man Lymphocytes # (Manual) Monocytes # (Manual) Eosinophils # (Manual) PT INR APTT D-Dimer Heparin Anti-Xa Level ABG pH POC ABG pCO2 POC ABG pO2 ABG pO2 ABG HCO3 ABG O2 Saturation ABG Base Excess ABG Hemoglobin ABG Oxyhemoglobin ABG Sodium ABG Potassium ABG Chloride ABG Glucose Oxyhemoglobin Carboxyhemoglobin Sodium Potassium Chloride 95.4 L Carbon Dioxide 35 H BUN 30 H Creatinine 0.5 L Glucose 214 H POC Glucose 181 H 221 H Lactic Acid Calcium Magnesium Ferritin Total Bilirubin Direct Bilirubin AST 54 H ALT 235 H Alkaline Phosphatase Lactate Dehydrogenase C-Reactive Protein Total Protein Albumin 2.9 L Triglycerides Lipase Arterial Blood Glucose Arterial Blood Ionized Calcium Urine WBC (Auto) Coronavirus (PCR) SARS-CoV-2 IgG Ab Crossmatch 06/01/20 06/02/20 06/02/20 23:12 04:00 05:31 WBC RBC Hgb Hct MCV MCH MCHC RDW Lymph % (Auto) [place] % (Auto) Lymph # (Auto) [place] # (Auto) Baso # (Auto) Seg Neutrophils % Seg Neuts % (Manual) Lymphocytes % (Manual) Nucleated RBC % Seg Neutrophils # Seg Neutrophils # Man Lymphocytes # (Manual) Monocytes # (Manual) Eosinophils # (Manual) PT INR APTT D-Dimer Heparin Anti-Xa Level ABG pH 7.465 H POC ABG pCO2 POC ABG pO2 ABG pO2 203.4 H ABG HCO3 41.2 H ABG O2 Saturation 99.3 H ABG Base Excess 15.1 H ABG Hemoglobin 11.5 L ABG Oxyhemoglobin ABG Sodium ABG Potassium ABG Chloride ABG Glucose Oxyhemoglobin Carboxyhemoglobin Sodium Potassium Chloride Carbon Dioxide BUN Creatinine Glucose POC Glucose 197 H 184 H Lactic Acid Calcium Magnesium Ferritin Total Bilirubin Direct Bilirubin AST ALT Alkaline Phosphatase Lactate Dehydrogenase C-Reactive Protein Total Protein Albumin Triglycerides Lipase Arterial Blood Glucose Arterial Blood Ionized Calcium Urine WBC (Auto) Coronavirus (PCR) SARS-CoV-2 IgG Ab Crossmatch 06/02/20 06/02/20 06/02/20 11:49 18:06 23:00 WBC RBC Hgb Hct MCV MCH MCHC RDW Lymph % (Auto) [place] % (Auto) Lymph # (Auto) [place] # (Auto) Baso # (Auto) Seg Neutrophils % Seg Neuts % (Manual) Lymphocytes % (Manual) Nucleated RBC % Seg Neutrophils # Seg Neutrophils # Man Lymphocytes # (Manual) Monocytes # (Manual) Eosinophils # (Manual) PT INR APTT D-Dimer Heparin Anti-Xa Level ABG pH POC ABG pCO2 POC ABG pO2 ABG pO2 ABG HCO3 ABG O2 Saturation ABG Base Excess ABG Hemoglobin ABG Oxyhemoglobin ABG Sodium ABG Potassium ABG Chloride ABG Glucose Oxyhemoglobin Carboxyhemoglobin Sodium Potassium Chloride Carbon Dioxide BUN Creatinine Glucose POC Glucose 195 H 177 H 228 H Lactic Acid Calcium Magnesium Ferritin Total Bilirubin Direct Bilirubin AST ALT Alkaline Phosphatase Lactate Dehydrogenase C-Reactive Protein Total Protein Albumin Triglycerides Lipase Arterial Blood Glucose Arterial Blood Ionized Calcium Urine WBC (Auto) Coronavirus (PCR) SARS-CoV-2 IgG Ab Crossmatch 06/03/20 06/03/20 06/03/20 03:58 05:19 12:21 WBC RBC Hgb Hct MCV MCH MCHC RDW Lymph % (Auto) [place] % (Auto) Lymph # (Auto) [place] # (Auto) Baso # (Auto) Seg Neutrophils % Seg Neuts % (Manual) Lymphocytes % (Manual) Nucleated RBC % Seg Neutrophils # Seg Neutrophils # Man Lymphocytes # (Manual) Monocytes # (Manual) Eosinophils # (Manual) PT INR APTT D-Dimer Heparin Anti-Xa Level ABG pH POC ABG pCO2 POC ABG pO2 ABG pO2 171.0 H ABG HCO3 42.8 H ABG O2 Saturation ABG Base Excess 15.6 H ABG Hemoglobin 12.3 L ABG Oxyhemoglobin ABG Sodium ABG Potassium ABG Chloride ABG Glucose Oxyhemoglobin Carboxyhemoglobin Sodium Potassium Chloride Carbon Dioxide BUN Creatinine Glucose POC Glucose 122 H 207 H Lactic Acid Calcium Magnesium Ferritin Total Bilirubin Direct Bilirubin AST ALT Alkaline Phosphatase Lactate Dehydrogenase C-Reactive Protein Total Protein Albumin Triglycerides Lipase Arterial Blood Glucose Arterial Blood Ionized Calcium Urine WBC (Auto) Coronavirus (PCR) SARS-CoV-2 IgG Ab Crossmatch 06/03/20 06/03/20 06/04/20 17:27 23:50 03:55 WBC RBC Hgb Hct MCV MCH MCHC RDW Lymph % (Auto) [place] % (Auto) Lymph # (Auto) [place] # (Auto) Baso # (Auto) Seg Neutrophils % Seg Neuts % (Manual) Lymphocytes % (Manual) Nucleated RBC % Seg Neutrophils # Seg Neutrophils # Man Lymphocytes # (Manual) Monocytes # (Manual) Eosinophils # (Manual) PT INR APTT D-Dimer Heparin Anti-Xa Level ABG pH POC ABG pCO2 POC ABG pO2 ABG pO2 117.2 H ABG HCO3 42.4 H ABG O2 Saturation ABG Base Excess 15.3 H ABG Hemoglobin 10.5 L ABG Oxyhemoglobin ABG Sodium ABG Potassium ABG Chloride ABG Glucose Oxyhemoglobin Carboxyhemoglobin Sodium Potassium Chloride Carbon Dioxide BUN Creatinine Glucose POC Glucose 157 H 214 H Lactic Acid Calcium Magnesium Ferritin Total Bilirubin Direct Bilirubin AST ALT Alkaline Phosphatase Lactate Dehydrogenase C-Reactive Protein Total Protein Albumin Triglycerides Lipase Arterial Blood Glucose Arterial Blood Ionized Calcium Urine WBC (Auto) Coronavirus (PCR) SARS-CoV-2 IgG Ab Crossmatch 06/04/20 06/04/20 06/04/20 05:49 11:41 17:30 WBC RBC Hgb Hct MCV MCH MCHC RDW Lymph % (Auto) [place] % (Auto) Lymph # (Auto) [place] # (Auto) Baso # (Auto) Seg Neutrophils % Seg Neuts % (Manual) Lymphocytes % (Manual) Nucleated RBC % Seg Neutrophils # Seg Neutrophils # Man Lymphocytes # (Manual) Monocytes # (Manual) Eosinophils # (Manual) PT INR APTT D-Dimer Heparin Anti-Xa Level ABG pH POC ABG pCO2 POC ABG pO2 ABG pO2 ABG HCO3 ABG O2 Saturation ABG Base Excess ABG Hemoglobin ABG Oxyhemoglobin ABG Sodium ABG Potassium ABG Chloride ABG Glucose Oxyhemoglobin Carboxyhemoglobin Sodium Potassium Chloride Carbon Dioxide BUN Creatinine Glucose POC Glucose 149 H 233 H 156 H Lactic Acid Calcium Magnesium Ferritin Total Bilirubin Direct Bilirubin AST ALT Alkaline Phosphatase Lactate Dehydrogenase C-Reactive Protein Total Protein Albumin Triglycerides Lipase Arterial Blood Glucose Arterial Blood Ionized Calcium Urine WBC (Auto) Coronavirus (PCR) SARS-CoV-2 IgG Ab Crossmatch 06/04/20 06/04/20 06/04/20 19:01 20:53 23:41 WBC RBC 3.18 L Hgb 10.8 L Hct 31.8 L MCV 100 H MCH 34 H MCHC RDW Lymph % (Auto) [place] % (Auto) Lymph # (Auto) [place] # (Auto) Baso # (Auto) Seg Neutrophils % Seg Neuts % (Manual) 86.0 H Lymphocytes % (Manual) 10.0 L Nucleated RBC % 1.0 H Seg Neutrophils # Seg Neutrophils # Man 8.5 H Lymphocytes # (Manual) 1.0 L Monocytes # (Manual) Eosinophils # (Manual) PT INR APTT D-Dimer Heparin Anti-Xa Level ABG pH POC ABG pCO2 POC ABG pO2 ABG pO2 ABG HCO3 ABG O2 Saturation ABG Base Excess ABG Hemoglobin ABG Oxyhemoglobin ABG Sodium ABG Potassium ABG Chloride ABG Glucose Oxyhemoglobin Carboxyhemoglobin Sodium Potassium 3.4 L D Chloride 96.5 L Carbon Dioxide 41 H* BUN 27 H Creatinine 0.5 L Glucose 173 H POC Glucose 217 H Lactic Acid Calcium Magnesium Ferritin Total Bilirubin Direct Bilirubin AST ALT Alkaline Phosphatase Lactate Dehydrogenase C-Reactive Protein Total Protein Albumin Triglycerides Lipase Arterial Blood Glucose Arterial Blood Ionized Calcium Urine WBC (Auto) Coronavirus (PCR) SARS-CoV-2 IgG Ab Crossmatch 06/05/20 06/05/20 06/05/20 06:05 11:54 12:35 WBC RBC Hgb Hct MCV MCH MCHC RDW Lymph % (Auto) [place] % (Auto) Lymph # (Auto) [place] # (Auto) Baso # (Auto) Seg Neutrophils % Seg Neuts % (Manual) Lymphocytes % (Manual) Nucleated RBC % Seg Neutrophils # Seg Neutrophils # Man Lymphocytes # (Manual) Monocytes # (Manual) Eosinophils # (Manual) PT INR APTT D-Dimer Heparin Anti-Xa Level ABG pH POC ABG pCO2 POC ABG pO2 ABG pO2 127.9 H ABG HCO3 41.1 H ABG O2 Saturation ABG Base Excess 13.0 H ABG Hemoglobin 13.4 L ABG Oxyhemoglobin ABG Sodium ABG Potassium ABG Chloride ABG Glucose Oxyhemoglobin Carboxyhemoglobin Sodium Potassium Chloride Carbon Dioxide BUN Creatinine Glucose POC Glucose 137 H 211 H Lactic Acid Calcium Magnesium Ferritin Total Bilirubin Direct Bilirubin AST ALT Alkaline Phosphatase Lactate Dehydrogenase C-Reactive Protein Total Protein Albumin Triglycerides Lipase Arterial Blood Glucose Arterial Blood Ionized Calcium Urine WBC (Auto) Coronavirus (PCR) SARS-CoV-2 IgG Ab Crossmatch 06/05/20 06/05/20 06/06/20 17:03 23:49 04:42 WBC RBC Hgb Hct MCV MCH MCHC RDW Lymph % (Auto) [place] % (Auto) Lymph # (Auto) [place] # (Auto) Baso # (Auto) Seg Neutrophils % Seg Neuts % (Manual) Lymphocytes % (Manual) Nucleated RBC % Seg Neutrophils # Seg Neutrophils # Man Lymphocytes # (Manual) Monocytes # (Manual) Eosinophils # (Manual) PT INR APTT D-Dimer Heparin Anti-Xa Level ABG pH POC ABG pCO2 56.1 H POC ABG pO2 52.5 L ABG pO2 ABG HCO3 ABG O2 Saturation ABG Base Excess ABG Hemoglobin 11.7 L ABG Oxyhemoglobin ABG Sodium ABG Potassium 3.3 L ABG Chloride 95.0 L ABG Glucose 156 H Oxyhemoglobin Carboxyhemoglobin Sodium Potassium Chloride Carbon Dioxide BUN Creatinine Glucose POC Glucose 159 H 194 H Lactic Acid Calcium Magnesium Ferritin Total Bilirubin Direct Bilirubin AST ALT Alkaline Phosphatase Lactate Dehydrogenase C-Reactive Protein Total Protein Albumin Triglycerides Lipase Arterial Blood Glucose 156 H Arterial Blood Ionized Calcium Urine WBC (Auto) Coronavirus (PCR) SARS-CoV-2 IgG Ab Crossmatch 06/06/20 06/06/20 06/06/20 05:57 12:06 17:38 WBC RBC Hgb Hct MCV MCH MCHC RDW Lymph % (Auto) [place] % (Auto) Lymph # (Auto) [place] # (Auto) Baso # (Auto) Seg Neutrophils % Seg Neuts % (Manual) Lymphocytes % (Manual) Nucleated RBC % Seg Neutrophils # Seg Neutrophils # Man Lymphocytes # (Manual) Monocytes # (Manual) Eosinophils # (Manual) PT INR APTT D-Dimer Heparin Anti-Xa Level ABG pH POC ABG pCO2 POC ABG pO2 ABG pO2 ABG HCO3 ABG O2 Saturation ABG Base Excess ABG Hemoglobin ABG Oxyhemoglobin ABG Sodium ABG Potassium ABG Chloride ABG Glucose Oxyhemoglobin Carboxyhemoglobin Sodium Potassium Chloride Carbon Dioxide BUN Creatinine Glucose POC Glucose 144 H 230 H 162 H Lactic Acid Calcium Magnesium Ferritin Total Bilirubin Direct Bilirubin AST ALT Alkaline Phosphatase Lactate Dehydrogenase C-Reactive Protein Total Protein Albumin Triglycerides Lipase Arterial Blood Glucose Arterial Blood Ionized Calcium Urine WBC (Auto) Coronavirus (PCR) SARS-CoV-2 IgG Ab Crossmatch 06/06/20 06/07/20 06/07/20 23:50 04:34 06:03 WBC RBC Hgb Hct MCV MCH MCHC RDW Lymph % (Auto) [place] % (Auto) Lymph # (Auto) [place] # (Auto) Baso # (Auto) Seg Neutrophils % Seg Neuts % (Manual) Lymphocytes % (Manual) Nucleated RBC % Seg Neutrophils # Seg Neutrophils # Man Lymphocytes # (Manual) Monocytes # (Manual) Eosinophils # (Manual) PT INR APTT D-Dimer Heparin Anti-Xa Level ABG pH 7.511 H POC ABG pCO2 53.5 H POC ABG pO2 114.5 H ABG pO2 ABG HCO3 ABG O2 Saturation ABG Base Excess ABG Hemoglobin 9.4 L ABG Oxyhemoglobin ABG Sodium 134.5 L ABG Potassium ABG Chloride 94.0 L ABG Glucose 186 H Oxyhemoglobin Carboxyhemoglobin Sodium Potassium Chloride Carbon Dioxide BUN Creatinine Glucose POC Glucose 181 H 155 H Lactic Acid Calcium Magnesium Ferritin Total Bilirubin Direct Bilirubin AST ALT Alkaline Phosphatase Lactate Dehydrogenase C-Reactive Protein Total Protein Albumin Triglycerides Lipase Arterial Blood Glucose 186 H Arterial Blood Ionized Calcium 4.5 L Urine WBC (Auto) Coronavirus (PCR) SARS-CoV-2 IgG Ab Crossmatch 06/07/20 06/07/20 06/07/20 13:41 14:58 14:58 WBC RBC 2.72 L Hgb 9.3 L Hct 27.2 L MCV 100 H MCH 34 H MCHC RDW Lymph % (Auto) [place] % (Auto) Lymph # (Auto) [place] # (Auto) Baso # (Auto) Seg Neutrophils % Seg Neuts % (Manual) Lymphocytes % (Manual) Nucleated RBC % Seg Neutrophils # Seg Neutrophils # Man Lymphocytes # (Manual) Monocytes # (Manual) Eosinophils # (Manual) PT INR APTT D-Dimer Heparin Anti-Xa Level ABG pH POC ABG pCO2 POC ABG pO2 ABG pO2 ABG HCO3 ABG O2 Saturation ABG Base Excess ABG Hemoglobin ABG Oxyhemoglobin ABG Sodium ABG Potassium ABG Chloride ABG Glucose Oxyhemoglobin Carboxyhemoglobin Sodium Potassium Chloride 93.5 L Carbon Dioxide 39 H BUN 22 H Creatinine 0.4 L Glucose 188 H POC Glucose 201 H Lactic Acid Calcium Magnesium Ferritin Total Bilirubin Direct Bilirubin AST 61 H ALT 273 H Alkaline Phosphatase Lactate Dehydrogenase C-Reactive Protein Total Protein 5.9 L Albumin 2.7 L Triglycerides Lipase Arterial Blood Glucose Arterial Blood Ionized Calcium Urine WBC (Auto) Coronavirus (PCR) SARS-CoV-2 IgG Ab Crossmatch 06/07/20 06/08/20 06/08/20 23:18 05:31 12:07 WBC RBC Hgb Hct MCV MCH MCHC RDW Lymph % (Auto) [place] % (Auto) Lymph # (Auto) [place] # (Auto) Baso # (Auto) Seg Neutrophils % Seg Neuts % (Manual) Lymphocytes % (Manual) Nucleated RBC % Seg Neutrophils # Seg Neutrophils # Man Lymphocytes # (Manual) Monocytes # (Manual) Eosinophils # (Manual) PT INR APTT D-Dimer Heparin Anti-Xa Level ABG pH POC ABG pCO2 POC ABG pO2 ABG pO2 ABG HCO3 ABG O2 Saturation ABG Base Excess ABG Hemoglobin ABG Oxyhemoglobin ABG Sodium ABG Potassium ABG Chloride ABG Glucose Oxyhemoglobin Carboxyhemoglobin Sodium Potassium Chloride Carbon Dioxide BUN Creatinine Glucose POC Glucose 214 H 129 H 179 H Lactic Acid Calcium Magnesium Ferritin Total Bilirubin Direct Bilirubin AST ALT Alkaline Phosphatase Lactate Dehydrogenase C-Reactive Protein Total Protein Albumin Triglycerides Lipase Arterial Blood Glucose Arterial Blood Ionized Calcium Urine WBC (Auto) Coronavirus (PCR) SARS-CoV-2 IgG Ab Crossmatch 06/08/20 06/08/20 06/09/20 18:18 23:35 05:42 WBC RBC Hgb Hct MCV MCH MCHC RDW Lymph % (Auto) [place] % (Auto) Lymph # (Auto) [place] # (Auto) Baso # (Auto) Seg Neutrophils % Seg Neuts % (Manual) Lymphocytes % (Manual) Nucleated RBC % Seg Neutrophils # Seg Neutrophils # Man Lymphocytes # (Manual) Monocytes # (Manual) Eosinophils # (Manual) PT INR APTT D-Dimer Heparin Anti-Xa Level ABG pH POC ABG pCO2 POC ABG pO2 ABG pO2 ABG HCO3 ABG O2 Saturation ABG Base Excess ABG Hemoglobin ABG Oxyhemoglobin ABG Sodium ABG Potassium ABG Chloride ABG Glucose Oxyhemoglobin Carboxyhemoglobin Sodium Potassium Chloride Carbon Dioxide BUN Creatinine Glucose POC Glucose 172 H 177 H 137 H Lactic Acid Calcium Magnesium Ferritin Total Bilirubin Direct Bilirubin AST ALT Alkaline Phosphatase Lactate Dehydrogenase C-Reactive Protein Total Protein Albumin Triglycerides Lipase Arterial Blood Glucose Arterial Blood Ionized Calcium Urine WBC (Auto) Coronavirus (PCR) SARS-CoV-2 IgG Ab Crossmatch 06/09/20 06/09/20 06/09/20 06:20 07:55 07:55 WBC 12.4 H RBC 3.26 L Hgb 11.1 L Hct 33.4 L D MCV 102 H MCH 34 H MCHC RDW Lymph % (Auto) [place] % (Auto) Lymph # (Auto) [place] # (Auto) Baso # (Auto) Seg Neutrophils % Seg Neuts % (Manual) Lymphocytes % (Manual) Nucleated RBC % Seg Neutrophils # Seg Neutrophils # Man Lymphocytes # (Manual) Monocytes # (Manual) Eosinophils # (Manual) PT INR APTT D-Dimer Heparin Anti-Xa Level ABG pH 7.466 H POC ABG pCO2 50.7 H POC ABG pO2 53.0 L ABG pO2 ABG HCO3 ABG O2 Saturation ABG Base Excess ABG Hemoglobin ABG Oxyhemoglobin ABG Sodium ABG Potassium 2.9 L ABG Chloride 93.0 L ABG Glucose 138 H Oxyhemoglobin Carboxyhemoglobin Sodium Potassium 3.0 L Chloride 92.3 L Carbon Dioxide 37 H BUN 21 H Creatinine 0.6 L Glucose 120 H POC Glucose Lactic Acid Calcium Magnesium Ferritin Total Bilirubin Direct Bilirubin AST ALT Alkaline Phosphatase Lactate Dehydrogenase C-Reactive Protein Total Protein Albumin Triglycerides Lipase Arterial Blood Glucose 138 H Arterial Blood Ionized Calcium 4.5 L Urine WBC (Auto) Coronavirus (PCR) SARS-CoV-2 IgG Ab Crossmatch 06/09/20 06/09/20 06/10/20 11:22 18:32 04:46 WBC RBC Hgb Hct MCV MCH MCHC RDW Lymph % (Auto) [place] % (Auto) Lymph # (Auto) [place] # (Auto) Baso # (Auto) Seg Neutrophils % Seg Neuts % (Manual) Lymphocytes % (Manual) Nucleated RBC % Seg Neutrophils # Seg Neutrophils # Man Lymphocytes # (Manual) Monocytes # (Manual) Eosinophils # (Manual) PT INR APTT D-Dimer Heparin Anti-Xa Level ABG pH 7.501 H POC ABG pCO2 POC ABG pO2 126.5 H ABG pO2 ABG HCO3 ABG O2 Saturation ABG Base Excess ABG Hemoglobin 10.3 L ABG Oxyhemoglobin ABG Sodium ABG Potassium ABG Chloride ABG Glucose 220 H Oxyhemoglobin Carboxyhemoglobin Sodium Potassium Chloride Carbon Dioxide BUN Creatinine Glucose POC Glucose 117 H 121 H Lactic Acid Calcium Magnesium Ferritin Total Bilirubin Direct Bilirubin AST ALT Alkaline Phosphatase Lactate Dehydrogenase C-Reactive Protein Total Protein Albumin Triglycerides Lipase Arterial Blood Glucose 220 H Arterial Blood Ionized Calcium Urine WBC (Auto) Coronavirus (PCR) SARS-CoV-2 IgG Ab Crossmatch 06/10/20 06/10/20 06/10/20 05:30 09:38 12:03 WBC RBC Hgb Hct MCV MCH MCHC RDW Lymph % (Auto) [place] % (Auto) Lymph # (Auto) [place] # (Auto) Baso # (Auto) Seg Neutrophils % Seg Neuts % (Manual) Lymphocytes % (Manual) Nucleated RBC % Seg Neutrophils # Seg Neutrophils # Man Lymphocytes # (Manual) Monocytes # (Manual) Eosinophils # (Manual) PT INR APTT D-Dimer Heparin Anti-Xa Level ABG pH POC ABG pCO2 POC ABG pO2 ABG pO2 ABG HCO3 ABG O2 Saturation ABG Base Excess ABG Hemoglobin ABG Oxyhemoglobin ABG Sodium ABG Potassium ABG Chloride ABG Glucose Oxyhemoglobin Carboxyhemoglobin Sodium Potassium Chloride Carbon Dioxide BUN Creatinine Glucose POC Glucose 181 H 204 H Lactic Acid Calcium Magnesium Ferritin Total Bilirubin Direct Bilirubin AST ALT Alkaline Phosphatase Lactate Dehydrogenase C-Reactive Protein Total Protein Albumin Triglycerides 738 H Lipase Arterial Blood Glucose Arterial Blood Ionized Calcium Urine WBC (Auto) Coronavirus (PCR) SARS-CoV-2 IgG Ab Crossmatch 06/10/20 06/11/20 06/11/20 17:17 00:04 04:38 WBC RBC Hgb Hct MCV MCH MCHC RDW Lymph % (Auto) [place] % (Auto) Lymph # (Auto) [place] # (Auto) Baso # (Auto) Seg Neutrophils % Seg Neuts % (Manual) Lymphocytes % (Manual) Nucleated RBC % Seg Neutrophils # Seg Neutrophils # Man Lymphocytes # (Manual) Monocytes # (Manual) Eosinophils # (Manual) PT INR APTT D-Dimer Heparin Anti-Xa Level ABG pH 7.479 H POC ABG pCO2 POC ABG pO2 76.7 L ABG pO2 ABG HCO3 ABG O2 Saturation ABG Base Excess ABG Hemoglobin 9.8 L ABG Oxyhemoglobin ABG Sodium 135.8 L ABG Potassium ABG Chloride ABG Glucose 238 H Oxyhemoglobin Carboxyhemoglobin Sodium Potassium Chloride Carbon Dioxide BUN Creatinine Glucose POC Glucose 156 H 178 H Lactic Acid Calcium Magnesium Ferritin Total Bilirubin Direct Bilirubin AST ALT Alkaline Phosphatase Lactate Dehydrogenase C-Reactive Protein Total Protein Albumin Triglycerides Lipase Arterial Blood Glucose 238 H Arterial Blood Ionized Calcium Urine WBC (Auto) Coronavirus (PCR) SARS-CoV-2 IgG Ab Crossmatch 06/11/20 06/11/20 06/11/20 05:21 06:52 11:50 WBC RBC Hgb Hct MCV MCH MCHC RDW Lymph % (Auto) [place] % (Auto) Lymph # (Auto) [place] # (Auto) Baso # (Auto) Seg Neutrophils % Seg Neuts % (Manual) Lymphocytes % (Manual) Nucleated RBC % Seg Neutrophils # Seg Neutrophils # Man Lymphocytes # (Manual) Monocytes # (Manual) Eosinophils # (Manual) PT INR APTT D-Dimer Heparin Anti-Xa Level ABG pH POC ABG pCO2 POC ABG pO2 ABG pO2 ABG HCO3 ABG O2 Saturation ABG Base Excess ABG Hemoglobin ABG Oxyhemoglobin ABG Sodium ABG Potassium ABG Chloride ABG Glucose Oxyhemoglobin Carboxyhemoglobin Sodium Potassium Chloride Carbon Dioxide BUN Creatinine Glucose POC Glucose 215 H 187 H Lactic Acid Calcium Magnesium Ferritin Total Bilirubin Direct Bilirubin AST ALT Alkaline Phosphatase Lactate Dehydrogenase C-Reactive Protein Total Protein Albumin Triglycerides 331 H Lipase Arterial Blood Glucose Arterial Blood Ionized Calcium Urine WBC (Auto) Coronavirus (PCR) SARS-CoV-2 IgG Ab Crossmatch 06/11/20 06/11/20 06/12/20 17:49 23:35 04:52 WBC RBC Hgb Hct MCV MCH MCHC RDW Lymph % (Auto) [place] % (Auto) Lymph # (Auto) [place] # (Auto) Baso # (Auto) Seg Neutrophils % Seg Neuts % (Manual) Lymphocytes % (Manual) Nucleated RBC % Seg Neutrophils # Seg Neutrophils # Man Lymphocytes # (Manual) Monocytes # (Manual) Eosinophils # (Manual) PT INR APTT D-Dimer Heparin Anti-Xa Level ABG pH 7.486 H POC ABG pCO2 POC ABG pO2 ABG pO2 ABG HCO3 ABG O2 Saturation ABG Base Excess ABG Hemoglobin 9.4 L ABG Oxyhemoglobin ABG Sodium ABG Potassium 3.2 L ABG Chloride ABG Glucose 209 H Oxyhemoglobin Carboxyhemoglobin Sodium Potassium Chloride Carbon Dioxide BUN Creatinine Glucose POC Glucose 211 H 200 H Lactic Acid Calcium Magnesium Ferritin Total Bilirubin Direct Bilirubin AST ALT Alkaline Phosphatase Lactate Dehydrogenase C-Reactive Protein Total Protein Albumin Triglycerides Lipase Arterial Blood Glucose 209 H Arterial Blood Ionized Calcium Urine WBC (Auto) Coronavirus (PCR) SARS-CoV-2 IgG Ab Crossmatch 06/12/20 06/12/20 06/12/20 05:13 11:47 18:33 WBC RBC Hgb Hct MCV MCH MCHC RDW Lymph % (Auto) [place] % (Auto) Lymph # (Auto) [place] # (Auto) Baso # (Auto) Seg Neutrophils % Seg Neuts % (Manual) Lymphocytes % (Manual) Nucleated RBC % Seg Neutrophils # Seg Neutrophils # Man Lymphocytes # (Manual) Monocytes # (Manual) Eosinophils # (Manual) PT INR APTT D-Dimer Heparin Anti-Xa Level ABG pH POC ABG pCO2 POC ABG pO2 ABG pO2 ABG HCO3 ABG O2 Saturation ABG Base Excess ABG Hemoglobin ABG Oxyhemoglobin ABG Sodium ABG Potassium ABG Chloride ABG Glucose Oxyhemoglobin Carboxyhemoglobin Sodium Potassium Chloride Carbon Dioxide BUN Creatinine Glucose POC Glucose 174 H 214 H 194 H Lactic Acid Calcium Magnesium Ferritin Total Bilirubin Direct Bilirubin AST ALT Alkaline Phosphatase Lactate Dehydrogenase C-Reactive Protein Total Protein Albumin Triglycerides Lipase Arterial Blood Glucose Arterial Blood Ionized Calcium Urine WBC (Auto) Coronavirus (PCR) SARS-CoV-2 IgG Ab Crossmatch 06/12/20 06/13/20 06/13/20 23:49 05:41 12:30 WBC RBC Hgb Hct MCV MCH MCHC RDW Lymph % (Auto) [place] % (Auto) Lymph # (Auto) [place] # (Auto) Baso # (Auto) Seg Neutrophils % Seg Neuts % (Manual) Lymphocytes % (Manual) Nucleated RBC % Seg Neutrophils # Seg Neutrophils # Man Lymphocytes # (Manual) Monocytes # (Manual) Eosinophils # (Manual) PT INR APTT D-Dimer Heparin Anti-Xa Level ABG pH POC ABG pCO2 POC ABG pO2 ABG pO2 ABG HCO3 ABG O2 Saturation ABG Base Excess ABG Hemoglobin ABG Oxyhemoglobin ABG Sodium ABG Potassium ABG Chloride ABG Glucose Oxyhemoglobin Carboxyhemoglobin Sodium Potassium Chloride Carbon Dioxide BUN Creatinine Glucose POC Glucose 160 H 150 H 181 H Lactic Acid Calcium Magnesium Ferritin Total Bilirubin Direct Bilirubin AST ALT Alkaline Phosphatase Lactate Dehydrogenase C-Reactive Protein Total Protein Albumin Triglycerides Lipase Arterial Blood Glucose Arterial Blood Ionized Calcium Urine WBC (Auto) Coronavirus (PCR) SARS-CoV-2 IgG Ab Crossmatch 06/13/20 06/13/20 06/13/20 14:14 17:48 23:27 WBC 12.8 H RBC 2.33 L Hgb 8.0 L Hct 23.3 L MCV 100 H MCH 34 H MCHC RDW 15.7 H Lymph % (Auto) [place] % (Auto) Lymph # (Auto) [place] # (Auto) Baso # (Auto) Seg Neutrophils % Seg Neuts % (Manual) 85.0 H Lymphocytes % (Manual) 10.0 L Nucleated RBC % Seg Neutrophils # Seg Neutrophils # Man 10.9 H Lymphocytes # (Manual) Monocytes # (Manual) Eosinophils # (Manual) PT INR APTT D-Dimer Heparin Anti-Xa Level ABG pH POC ABG pCO2 POC ABG pO2 ABG pO2 ABG HCO3 ABG O2 Saturation ABG Base Excess ABG Hemoglobin ABG Oxyhemoglobin ABG Sodium ABG Potassium ABG Chloride ABG Glucose Oxyhemoglobin Carboxyhemoglobin Sodium Potassium Chloride Carbon Dioxide BUN Creatinine Glucose POC Glucose 173 H 154 H Lactic Acid Calcium Magnesium Ferritin Total Bilirubin Direct Bilirubin AST ALT Alkaline Phosphatase Lactate Dehydrogenase C-Reactive Protein Total Protein Albumin Triglycerides Lipase Arterial Blood Glucose Arterial Blood Ionized Calcium Urine WBC (Auto) Coronavirus (PCR) SARS-CoV-2 IgG Ab Crossmatch 06/14/20 06/14/20 06/14/20 03:58 05:21 07:15 WBC 26.2 H RBC 2.97 L Hgb 9.7 L Hct 29.9 L D MCV 101 H MCH 33 H MCHC RDW 15.3 H Lymph % (Auto) [place] % (Auto) Lymph # (Auto) [place] # (Auto) Baso # (Auto) Seg Neutrophils % Seg Neuts % (Manual) 79.0 H Lymphocytes % (Manual) 5.0 L Nucleated RBC % 3.0 H Seg Neutrophils # Seg Neutrophils # Man 20.7 H Lymphocytes # (Manual) Monocytes # (Manual) 1.3 H Eosinophils # (Manual) PT INR APTT D-Dimer Heparin Anti-Xa Level ABG pH POC ABG pCO2 51.5 H POC ABG pO2 70.0 L ABG pO2 ABG HCO3 ABG O2 Saturation ABG Base Excess ABG Hemoglobin 10.1 L ABG Oxyhemoglobin ABG Sodium 131.5 L ABG Potassium 3.1 L ABG Chloride 93.0 L ABG Glucose 188 H Oxyhemoglobin Carboxyhemoglobin Sodium Potassium Chloride Carbon Dioxide BUN Creatinine Glucose POC Glucose 147 H Lactic Acid Calcium Magnesium Ferritin Total Bilirubin Direct Bilirubin AST ALT Alkaline Phosphatase Lactate Dehydrogenase C-Reactive Protein Total Protein Albumin Triglycerides Lipase Arterial Blood Glucose 188 H Arterial Blood Ionized Calcium Urine WBC (Auto) Coronavirus (PCR) SARS-CoV-2 IgG Ab Crossmatch 06/14/20 06/14/20 06/14/20 07:15 11:30 11:50 WBC RBC Hgb Hct MCV MCH MCHC RDW Lymph % (Auto) [place] % (Auto) Lymph # (Auto) [place] # (Auto) Baso # (Auto) Seg Neutrophils % Seg Neuts % (Manual) Lymphocytes % (Manual) Nucleated RBC % Seg Neutrophils # Seg Neutrophils # Man Lymphocytes # (Manual) Monocytes # (Manual) Eosinophils # (Manual) PT INR APTT D-Dimer Heparin Anti-Xa Level ABG pH POC ABG pCO2 POC ABG pO2 ABG pO2 ABG HCO3 ABG O2 Saturation ABG Base Excess ABG Hemoglobin ABG Oxyhemoglobin ABG Sodium ABG Potassium ABG Chloride ABG Glucose Oxyhemoglobin Carboxyhemoglobin Sodium 135 L Potassium 3.5 L Chloride 90.4 L Carbon Dioxide 38 H BUN Creatinine 0.5 L Glucose 190 H POC Glucose 176 H Lactic Acid Calcium Magnesium Ferritin 1496.0 H Total Bilirubin Direct Bilirubin AST ALT 81 H Alkaline Phosphatase Lactate Dehydrogenase C-Reactive Protein Total Protein Albumin 2.9 L Triglycerides Lipase Arterial Blood Glucose Arterial Blood Ionized Calcium Urine WBC (Auto) Coronavirus (PCR) SARS-CoV-2 IgG Ab Crossmatch 06/14/20 06/15/20 06/15/20 23:31 04:00 05:00 WBC RBC Hgb Hct MCV MCH MCHC RDW Lymph % (Auto) [place] % (Auto) Lymph # (Auto) [place] # (Auto) Baso # (Auto) Seg Neutrophils % Seg Neuts % (Manual) Lymphocytes % (Manual) Nucleated RBC % Seg Neutrophils # Seg Neutrophils # Man Lymphocytes # (Manual) Monocytes # (Manual) Eosinophils # (Manual) PT INR APTT D-Dimer Heparin Anti-Xa Level ABG pH POC ABG pCO2 POC ABG pO2 ABG pO2 ABG HCO3 ABG O2 Saturation ABG Base Excess ABG Hemoglobin ABG Oxyhemoglobin ABG Sodium ABG Potassium ABG Chloride ABG Glucose Oxyhemoglobin Carboxyhemoglobin Sodium 133 L Potassium Chloride 91.1 L Carbon Dioxide 34 H BUN Creatinine 0.4 L Glucose 159 H POC Glucose 200 H Lactic Acid Calcium Magnesium Ferritin Total Bilirubin 2.00 H Direct Bilirubin AST 47 H ALT 77 H Alkaline Phosphatase Lactate Dehydrogenase C-Reactive Protein Total Protein Albumin 2.6 L Triglycerides 152 H Lipase Arterial Blood Glucose Arterial Blood Ionized Calcium Urine WBC (Auto) Coronavirus (PCR) SARS-CoV-2 IgG Ab Crossmatch 06/15/20 06/15/20 06/15/20 05:35 06:27 11:38 WBC RBC Hgb Hct MCV MCH MCHC RDW Lymph % (Auto) [place] % (Auto) Lymph # (Auto) [place] # (Auto) Baso # (Auto) Seg Neutrophils % Seg Neuts % (Manual) Lymphocytes % (Manual) Nucleated RBC % Seg Neutrophils # Seg Neutrophils # Man Lymphocytes # (Manual) Monocytes # (Manual) Eosinophils # (Manual) PT INR APTT D-Dimer Heparin Anti-Xa Level ABG pH POC ABG pCO2 61.0 H POC ABG pO2 67.9 L ABG pO2 ABG HCO3 ABG O2 Saturation ABG Base Excess ABG Hemoglobin 10.4 L ABG Oxyhemoglobin ABG Sodium 132.7 L ABG Potassium 3.3 L ABG Chloride 92.0 L ABG Glucose 158 H Oxyhemoglobin Carboxyhemoglobin Sodium Potassium Chloride Carbon Dioxide BUN Creatinine Glucose POC Glucose 148 H 197 H Lactic Acid Calcium Magnesium Ferritin Total Bilirubin Direct Bilirubin AST ALT Alkaline Phosphatase Lactate Dehydrogenase C-Reactive Protein Total Protein Albumin Triglycerides Lipase Arterial Blood Glucose 158 H Arterial Blood Ionized Calcium Urine WBC (Auto) Coronavirus (PCR) SARS-CoV-2 IgG Ab Crossmatch 06/15/20 06/15/20 06/16/20 17:29 Unknown 00:01 WBC 20.7 H RBC 2.57 L Hgb 8.9 L Hct 25.8 L MCV 101 H MCH 35 H MCHC 35 H RDW 16.0 H Lymph % (Auto) [place] % (Auto) Lymph # (Auto) [place] # (Auto) Baso # (Auto) Seg Neutrophils % Seg Neuts % (Manual) 83.0 H Lymphocytes % (Manual) 8.0 L Nucleated RBC % Seg Neutrophils # Seg Neutrophils # Man 17.2 H Lymphocytes # (Manual) Monocytes # (Manual) 1.2 H Eosinophils # (Manual) PT INR APTT D-Dimer Heparin Anti-Xa Level ABG pH POC ABG pCO2 POC ABG pO2 ABG pO2 ABG HCO3 ABG O2 Saturation ABG Base Excess ABG Hemoglobin ABG Oxyhemoglobin ABG Sodium ABG Potassium ABG Chloride ABG Glucose Oxyhemoglobin Carboxyhemoglobin Sodium Potassium Chloride Carbon Dioxide BUN Creatinine Glucose POC Glucose 231 H 257 H Lactic Acid Calcium Magnesium Ferritin Total Bilirubin Direct Bilirubin AST ALT Alkaline Phosphatase Lactate Dehydrogenase C-Reactive Protein Total Protein Albumin Triglycerides Lipase Arterial Blood Glucose Arterial Blood Ionized Calcium Urine WBC (Auto) Coronavirus (PCR) SARS-CoV-2 IgG Ab Crossmatch 06/16/20 06/16/20 06/16/20 04:00 04:00 05:22 WBC 13.8 H RBC 2.03 L Hgb 7.6 L Hct 20.7 L MCV 102 H MCH 37 H MCHC 37 H RDW 16.2 H Lymph % (Auto) 4.4 L [place] % (Auto) Lymph # (Auto) 0.6 L [place] # (Auto) Baso # (Auto) Seg Neutrophils % Seg Neuts % (Manual) Lymphocytes % (Manual) Nucleated RBC % Seg Neutrophils # 12.7 H Seg Neutrophils # Man Lymphocytes # (Manual) Monocytes # (Manual) Eosinophils # (Manual) PT INR APTT D-Dimer Heparin Anti-Xa Level ABG pH POC ABG pCO2 POC ABG pO2 ABG pO2 ABG HCO3 ABG O2 Saturation ABG Base Excess ABG Hemoglobin ABG Oxyhemoglobin ABG Sodium ABG Potassium ABG Chloride ABG Glucose Oxyhemoglobin Carboxyhemoglobin Sodium 130 L Potassium Chloride 88.9 L Carbon Dioxide 36 H BUN Creatinine 0.3 L Glucose 276 H POC Glucose 250 H Lactic Acid Calcium Magnesium Ferritin Total Bilirubin Direct Bilirubin AST ALT Alkaline Phosphatase Lactate Dehydrogenase C-Reactive Protein Total Protein Albumin Triglycerides Lipase Arterial Blood Glucose Arterial Blood Ionized Calcium Urine WBC (Auto) Coronavirus (PCR) SARS-CoV-2 IgG Ab Crossmatch 06/16/20 06/16/20 06/17/20 12:44 18:18 00:39 WBC RBC Hgb Hct MCV MCH MCHC RDW Lymph % (Auto) [place] % (Auto) Lymph # (Auto) [place] # (Auto) Baso # (Auto) Seg Neutrophils % Seg Neuts % (Manual) Lymphocytes % (Manual) Nucleated RBC % Seg Neutrophils # Seg Neutrophils # Man Lymphocytes # (Manual) Monocytes # (Manual) Eosinophils # (Manual) PT INR APTT D-Dimer Heparin Anti-Xa Level ABG pH POC ABG pCO2 POC ABG pO2 ABG pO2 ABG HCO3 ABG O2 Saturation ABG Base Excess ABG Hemoglobin ABG Oxyhemoglobin ABG Sodium ABG Potassium ABG Chloride ABG Glucose Oxyhemoglobin Carboxyhemoglobin Sodium Potassium Chloride Carbon Dioxide BUN Creatinine Glucose POC Glucose 279 H 239 H 247 H Lactic Acid Calcium Magnesium Ferritin Total Bilirubin Direct Bilirubin AST ALT Alkaline Phosphatase Lactate Dehydrogenase C-Reactive Protein Total Protein Albumin Triglycerides Lipase Arterial Blood Glucose Arterial Blood Ionized Calcium Urine WBC (Auto) Coronavirus (PCR) SARS-CoV-2 IgG Ab Crossmatch 06/17/20 06/17/20 06/17/20 03:40 04:08 10:54 WBC RBC Hgb Hct MCV MCH MCHC RDW Lymph % (Auto) [place] % (Auto) Lymph # (Auto) [place] # (Auto) Baso # (Auto) Seg Neutrophils % Seg Neuts % (Manual) Lymphocytes % (Manual) Nucleated RBC % Seg Neutrophils # Seg Neutrophils # Man Lymphocytes # (Manual) Monocytes # (Manual) Eosinophils # (Manual) PT INR APTT D-Dimer Heparin Anti-Xa Level ABG pH POC ABG pCO2 65.7 H POC ABG pO2 ABG pO2 ABG HCO3 ABG O2 Saturation ABG Base Excess ABG Hemoglobin 11.9 L ABG Oxyhemoglobin ABG Sodium ABG Potassium ABG Chloride 93.0 L ABG Glucose 244 H Oxyhemoglobin Carboxyhemoglobin Sodium Potassium Chloride Carbon Dioxide BUN Creatinine Glucose POC Glucose 221 H 248 H Lactic Acid Calcium Magnesium Ferritin Total Bilirubin Direct Bilirubin AST ALT Alkaline Phosphatase Lactate Dehydrogenase C-Reactive Protein Total Protein Albumin Triglycerides Lipase Arterial Blood Glucose 244 H Arterial Blood Ionized Calcium Urine WBC (Auto) Coronavirus (PCR) SARS-CoV-2 IgG Ab Crossmatch 06/17/20 06/17/20 06/17/20 17:47 23:11 23:29 WBC RBC Hgb Hct MCV MCH MCHC RDW Lymph % (Auto) [place] % (Auto) Lymph # (Auto) [place] # (Auto) Baso # (Auto) Seg Neutrophils % Seg Neuts % (Manual) Lymphocytes % (Manual) Nucleated RBC % Seg Neutrophils # Seg Neutrophils # Man Lymphocytes # (Manual) Monocytes # (Manual) Eosinophils # (Manual) PT INR APTT D-Dimer Heparin Anti-Xa Level ABG pH POC ABG pCO2 85.2 H POC ABG pO2 48.4 L ABG pO2 ABG HCO3 ABG O2 Saturation ABG Base Excess ABG Hemoglobin 8.0 L ABG Oxyhemoglobin ABG Sodium ABG Potassium ABG Chloride 95.0 L ABG Glucose 292 H Oxyhemoglobin Carboxyhemoglobin Sodium Potassium Chloride Carbon Dioxide BUN Creatinine Glucose POC Glucose 245 H 252 H Lactic Acid Calcium Magnesium Ferritin Total Bilirubin Direct Bilirubin AST ALT Alkaline Phosphatase Lactate Dehydrogenase C-Reactive Protein Total Protein Albumin Triglycerides Lipase Arterial Blood Glucose 292 H Arterial Blood Ionized Calcium Urine WBC (Auto) Coronavirus (PCR) SARS-CoV-2 IgG Ab Crossmatch 06/18/20 06/18/20 06/18/20 03:14 05:34 11:47 WBC RBC Hgb Hct MCV MCH MCHC RDW Lymph % (Auto) [place] % (Auto) Lymph # (Auto) [place] # (Auto) Baso # (Auto) Seg Neutrophils % Seg Neuts % (Manual) Lymphocytes % (Manual) Nucleated RBC % Seg Neutrophils # Seg Neutrophils # Man Lymphocytes # (Manual) Monocytes # (Manual) Eosinophils # (Manual) PT INR APTT D-Dimer Heparin Anti-Xa Level ABG pH POC ABG pCO2 65.4 H POC ABG pO2 160.7 H ABG pO2 ABG HCO3 ABG O2 Saturation ABG Base Excess ABG Hemoglobin 7.8 L ABG Oxyhemoglobin ABG Sodium ABG Potassium ABG Chloride 95.0 L ABG Glucose 251 H Oxyhemoglobin Carboxyhemoglobin Sodium Potassium Chloride Carbon Dioxide BUN Creatinine Glucose POC Glucose 243 H 263 H Lactic Acid Calcium Magnesium Ferritin Total Bilirubin Direct Bilirubin AST ALT Alkaline Phosphatase Lactate Dehydrogenase C-Reactive Protein Total Protein Albumin Triglycerides Lipase Arterial Blood Glucose 251 H Arterial Blood Ionized Calcium Urine WBC (Auto) Coronavirus (PCR) SARS-CoV-2 IgG Ab Crossmatch 06/18/20 06/18/20 06/19/20 17:31 23:33 04:32 WBC RBC Hgb Hct MCV MCH MCHC RDW Lymph % (Auto) [place] % (Auto) Lymph # (Auto) [place] # (Auto) Baso # (Auto) Seg Neutrophils % Seg Neuts % (Manual) Lymphocytes % (Manual) Nucleated RBC % Seg Neutrophils # Seg Neutrophils # Man Lymphocytes # (Manual) Monocytes # (Manual) Eosinophils # (Manual) PT INR APTT D-Dimer Heparin Anti-Xa Level ABG pH POC ABG pCO2 83.1 H POC ABG pO2 65.8 L ABG pO2 ABG HCO3 ABG O2 Saturation ABG Base Excess ABG Hemoglobin 8.9 L ABG Oxyhemoglobin ABG Sodium ABG Potassium ABG Chloride 96.0 L ABG Glucose 297 H Oxyhemoglobin Carboxyhemoglobin Sodium Potassium Chloride Carbon Dioxide BUN Creatinine Glucose POC Glucose 286 H 238 H Lactic Acid Calcium Magnesium Ferritin Total Bilirubin Direct Bilirubin AST ALT Alkaline Phosphatase Lactate Dehydrogenase C-Reactive Protein Total Protein Albumin Triglycerides Lipase Arterial Blood Glucose 297 H Arterial Blood Ionized Calcium Urine WBC (Auto) Coronavirus (PCR) SARS-CoV-2 IgG Ab Crossmatch 06/19/20 06/19/20 06/19/20 05:55 11:20 17:12 WBC RBC Hgb Hct MCV MCH MCHC RDW Lymph % (Auto) [place] % (Auto) Lymph # (Auto) [place] # (Auto) Baso # (Auto) Seg Neutrophils % Seg Neuts % (Manual) Lymphocytes % (Manual) Nucleated RBC % Seg Neutrophils # Seg Neutrophils # Man Lymphocytes # (Manual) Monocytes # (Manual) Eosinophils # (Manual) PT INR APTT D-Dimer Heparin Anti-Xa Level ABG pH POC ABG pCO2 POC ABG pO2 ABG pO2 ABG HCO3 ABG O2 Saturation ABG Base Excess ABG Hemoglobin ABG Oxyhemoglobin ABG Sodium ABG Potassium ABG Chloride ABG Glucose Oxyhemoglobin Carboxyhemoglobin Sodium Potassium Chloride Carbon Dioxide BUN Creatinine Glucose POC Glucose 274 H 282 H 298 H Lactic Acid Calcium Magnesium Ferritin Total Bilirubin Direct Bilirubin AST ALT Alkaline Phosphatase Lactate Dehydrogenase C-Reactive Protein Total Protein Albumin Triglycerides Lipase Arterial Blood Glucose Arterial Blood Ionized Calcium Urine WBC (Auto) Coronavirus (PCR) SARS-CoV-2 IgG Ab Crossmatch 06/19/20 06/20/20 06/20/20 23:08 03:33 06:01 WBC RBC Hgb Hct MCV MCH MCHC RDW Lymph % (Auto) [place] % (Auto) Lymph # (Auto) [place] # (Auto) Baso # (Auto) Seg Neutrophils % Seg Neuts % (Manual) Lymphocytes % (Manual) Nucleated RBC % Seg Neutrophils # Seg Neutrophils # Man Lymphocytes # (Manual) Monocytes # (Manual) Eosinophils # (Manual) PT INR APTT D-Dimer Heparin Anti-Xa Level ABG pH POC ABG pCO2 POC ABG pO2 ABG pO2 69.9 L ABG HCO3 50.8 H ABG O2 Saturation ABG Base Excess 24.2 H ABG Hemoglobin 5.8 L ABG Oxyhemoglobin ABG Sodium ABG Potassium ABG Chloride ABG Glucose Oxyhemoglobin Carboxyhemoglobin Sodium Potassium Chloride Carbon Dioxide BUN Creatinine Glucose POC Glucose 293 H 182 H Lactic Acid Calcium Magnesium Ferritin Total Bilirubin Direct Bilirubin AST ALT Alkaline Phosphatase Lactate Dehydrogenase C-Reactive Protein Total Protein Albumin Triglycerides Lipase Arterial Blood Glucose Arterial Blood Ionized Calcium Urine WBC (Auto) Coronavirus (PCR) SARS-CoV-2 IgG Ab Crossmatch 06/20/20 06/20/20 06/20/20 11:47 17:46 23:37 WBC RBC Hgb Hct MCV MCH MCHC RDW Lymph % (Auto) [place] % (Auto) Lymph # (Auto) [place] # (Auto) Baso # (Auto) Seg Neutrophils % Seg Neuts % (Manual) Lymphocytes % (Manual) Nucleated RBC % Seg Neutrophils # Seg Neutrophils # Man Lymphocytes # (Manual) Monocytes # (Manual) Eosinophils # (Manual) PT INR APTT D-Dimer Heparin Anti-Xa Level ABG pH POC ABG pCO2 POC ABG pO2 ABG pO2 ABG HCO3 ABG O2 Saturation ABG Base Excess ABG Hemoglobin ABG Oxyhemoglobin ABG Sodium ABG Potassium ABG Chloride ABG Glucose Oxyhemoglobin Carboxyhemoglobin Sodium Potassium Chloride Carbon Dioxide BUN Creatinine Glucose POC Glucose 170 H 215 H 256 H Lactic Acid Calcium Magnesium Ferritin Total Bilirubin Direct Bilirubin AST ALT Alkaline Phosphatase Lactate Dehydrogenase C-Reactive Protein Total Protein Albumin Triglycerides Lipase Arterial Blood Glucose Arterial Blood Ionized Calcium Urine WBC (Auto) Coronavirus (PCR) SARS-CoV-2 IgG Ab Crossmatch 06/21/20 06/21/20 06/21/20 04:00 05:14 05:51 WBC RBC Hgb Hct MCV MCH MCHC RDW Lymph % (Auto) [place] % (Auto) Lymph # (Auto) [place] # (Auto) Baso # (Auto) Seg Neutrophils % Seg Neuts % (Manual) Lymphocytes % (Manual) Nucleated RBC % Seg Neutrophils # Seg Neutrophils # Man Lymphocytes # (Manual) Monocytes # (Manual) Eosinophils # (Manual) PT INR APTT D-Dimer Heparin Anti-Xa Level ABG pH 7.474 H POC ABG pCO2 POC ABG pO2 ABG pO2 ABG HCO3 52.1 H ABG O2 Saturation ABG Base Excess 23.3 H ABG Hemoglobin 5.3 L ABG Oxyhemoglobin ABG Sodium ABG Potassium ABG Chloride ABG Glucose Oxyhemoglobin 93.8 L Carboxyhemoglobin Sodium Potassium Chloride Carbon Dioxide BUN Creatinine Glucose POC Glucose 122 H 129 H Lactic Acid Calcium Magnesium Ferritin Total Bilirubin Direct Bilirubin AST ALT Alkaline Phosphatase Lactate Dehydrogenase C-Reactive Protein Total Protein Albumin Triglycerides Lipase Arterial Blood Glucose Arterial Blood Ionized Calcium Urine WBC (Auto) Coronavirus (PCR) SARS-CoV-2 IgG Ab Crossmatch 06/21/20 06/21/20 06/21/20 11:00 11:00 11:42 WBC 14.2 H RBC 1.85 L Hgb 6.2 L Hct 19.5 L* MCV 105 H MCH 34 H MCHC RDW 18.0 H Lymph % (Auto) [place] % (Auto) Lymph # (Auto) [place] # (Auto) Baso # (Auto) Seg Neutrophils % Seg Neuts % (Manual) Lymphocytes % (Manual) Nucleated RBC % Seg Neutrophils # Seg Neutrophils # Man Lymphocytes # (Manual) Monocytes # (Manual) Eosinophils # (Manual) PT INR APTT D-Dimer Heparin Anti-Xa Level ABG pH POC ABG pCO2 POC ABG pO2 ABG pO2 ABG HCO3 ABG O2 Saturation ABG Base Excess ABG Hemoglobin ABG Oxyhemoglobin ABG Sodium ABG Potassium ABG Chloride ABG Glucose Oxyhemoglobin Carboxyhemoglobin Sodium 147 H Potassium Chloride Carbon Dioxide 51 H* BUN 31 H Creatinine 0.5 L Glucose 224 H POC Glucose 217 H Lactic Acid Calcium Magnesium Ferritin Total Bilirubin Direct Bilirubin AST ALT Alkaline Phosphatase Lactate Dehydrogenase C-Reactive Protein Total Protein Albumin Triglycerides Lipase Arterial Blood Glucose Arterial Blood Ionized Calcium Urine WBC (Auto) Coronavirus (PCR) SARS-CoV-2 IgG Ab Crossmatch 06/21/20 06/21/20 06/21/20 14:18 14:30 18:36 WBC RBC Hgb Hct MCV MCH MCHC RDW Lymph % (Auto) [place] % (Auto) Lymph # (Auto) [place] # (Auto) Baso # (Auto) Seg Neutrophils % Seg Neuts % (Manual) Lymphocytes % (Manual) Nucleated RBC % Seg Neutrophils # Seg Neutrophils # Man Lymphocytes # (Manual) Monocytes # (Manual) Eosinophils # (Manual) PT 15.1 H INR 1.19 H APTT D-Dimer Heparin Anti-Xa Level ABG pH POC ABG pCO2 POC ABG pO2 ABG pO2 ABG HCO3 ABG O2 Saturation ABG Base Excess ABG Hemoglobin ABG Oxyhemoglobin ABG Sodium ABG Potassium ABG Chloride ABG Glucose Oxyhemoglobin Carboxyhemoglobin Sodium Potassium Chloride Carbon Dioxide BUN Creatinine Glucose POC Glucose 185 H Lactic Acid Calcium Magnesium Ferritin Total Bilirubin Direct Bilirubin AST ALT Alkaline Phosphatase Lactate Dehydrogenase C-Reactive Protein Total Protein Albumin Triglycerides Lipase Arterial Blood Glucose Arterial Blood Ionized Calcium Urine WBC (Auto) Coronavirus (PCR) SARS-CoV-2 IgG Ab Crossmatch See Detail 06/21/20 06/22/20 06/22/20 21:14 03:50 04:00 WBC RBC Hgb Hct MCV MCH MCHC RDW Lymph % (Auto) [place] % (Auto) Lymph # (Auto) [place] # (Auto) Baso # (Auto) Seg Neutrophils % Seg Neuts % (Manual) Lymphocytes % (Manual) Nucleated RBC % Seg Neutrophils # Seg Neutrophils # Man Lymphocytes # (Manual) Monocytes # (Manual) Eosinophils # (Manual) PT INR APTT D-Dimer Heparin Anti-Xa Level ABG pH 7.451 H POC ABG pCO2 POC ABG pO2 ABG pO2 ABG HCO3 47.5 H ABG O2 Saturation ABG Base Excess 22.0 H ABG Hemoglobin < 5.1 L ABG Oxyhemoglobin ABG Sodium ABG Potassium ABG Chloride ABG Glucose Oxyhemoglobin 94.1 L Carboxyhemoglobin Sodium 149 H Potassium 3.5 L Chloride Carbon Dioxide 42 H* D BUN 34 H Creatinine 0.4 L Glucose 219 H POC Glucose 250 H Lactic Acid Calcium Magnesium Ferritin Total Bilirubin Direct Bilirubin AST ALT Alkaline Phosphatase Lactate Dehydrogenase C-Reactive Protein Total Protein Albumin Triglycerides Lipase Arterial Blood Glucose Arterial Blood Ionized Calcium Urine WBC (Auto) Coronavirus (PCR) SARS-CoV-2 IgG Ab Crossmatch 06/22/20 06/22/20 06/22/20 12:16 14:29 17:56 WBC RBC Hgb Hct MCV MCH MCHC RDW Lymph % (Auto) [place] % (Auto) Lymph # (Auto) [place] # (Auto) Baso # (Auto) Seg Neutrophils % Seg Neuts % (Manual) Lymphocytes % (Manual) Nucleated RBC % Seg Neutrophils # Seg Neutrophils # Man Lymphocytes # (Manual) Monocytes # (Manual) Eosinophils # (Manual) PT 11.8 L INR APTT 23.5 L D-Dimer Heparin Anti-Xa Level ABG pH POC ABG pCO2 POC ABG pO2 ABG pO2 ABG HCO3 ABG O2 Saturation ABG Base Excess ABG Hemoglobin ABG Oxyhemoglobin ABG Sodium ABG Potassium ABG Chloride ABG Glucose Oxyhemoglobin Carboxyhemoglobin Sodium Potassium Chloride Carbon Dioxide BUN Creatinine Glucose POC Glucose 215 H 215 H Lactic Acid Calcium Magnesium Ferritin Total Bilirubin Direct Bilirubin AST ALT Alkaline Phosphatase Lactate Dehydrogenase C-Reactive Protein Total Protein Albumin Triglycerides Lipase Arterial Blood Glucose Arterial Blood Ionized Calcium Urine WBC (Auto) Coronavirus (PCR) SARS-CoV-2 IgG Ab Crossmatch 06/22/20 06/22/20 06/22/20 23:36 23:45 Unknown WBC 14.1 H RBC 2.70 L Hgb 8.9 L 8.9 L Hct 26.9 L 27.2 L D MCV 101 H MCH 33 H MCHC RDW 17.7 H Lymph % (Auto) [place] % (Auto) Lymph # (Auto) [place] # (Auto) Baso # (Auto) Seg Neutrophils % Seg Neuts % (Manual) 92.0 H Lymphocytes % (Manual) 5.0 L Nucleated RBC % Seg Neutrophils # Seg Neutrophils # Man 13.0 H Lymphocytes # (Manual) 0.7 L Monocytes # (Manual) Eosinophils # (Manual) PT INR APTT D-Dimer Heparin Anti-Xa Level ABG pH POC ABG pCO2 POC ABG pO2 ABG pO2 ABG HCO3 ABG O2 Saturation ABG Base Excess ABG Hemoglobin ABG Oxyhemoglobin ABG Sodium ABG Potassium ABG Chloride ABG Glucose Oxyhemoglobin Carboxyhemoglobin Sodium Potassium Chloride Carbon Dioxide BUN Creatinine Glucose POC Glucose 208 H Lactic Acid Calcium Magnesium Ferritin Total Bilirubin Direct Bilirubin AST ALT Alkaline Phosphatase Lactate Dehydrogenase C-Reactive Protein Total Protein Albumin Triglycerides Lipase Arterial Blood Glucose Arterial Blood Ionized Calcium Urine WBC (Auto) Coronavirus (PCR) SARS-CoV-2 IgG Ab Crossmatch 06/23/20 06/23/20 06/23/20 05:17 05:19 06:50 WBC RBC Hgb Hct MCV MCH MCHC RDW Lymph % (Auto) [place] % (Auto) Lymph # (Auto) [place] # (Auto) Baso # (Auto) Seg Neutrophils % Seg Neuts % (Manual) Lymphocytes % (Manual) Nucleated RBC % Seg Neutrophils # Seg Neutrophils # Man Lymphocytes # (Manual) Monocytes # (Manual) Eosinophils # (Manual) PT INR APTT D-Dimer Heparin Anti-Xa Level ABG pH POC ABG pCO2 69.7 H POC ABG pO2 63.3 L ABG pO2 ABG HCO3 ABG O2 Saturation ABG Base Excess ABG Hemoglobin 10.1 L ABG Oxyhemoglobin ABG Sodium ABG Potassium 3.3 L ABG Chloride ABG Glucose 226 H Oxyhemoglobin Carboxyhemoglobin Sodium Potassium 3.0 L Chloride Carbon Dioxide 41 H* BUN 26 H Creatinine 0.4 L Glucose 209 H POC Glucose 200 H Lactic Acid Calcium Magnesium Ferritin Total Bilirubin Direct Bilirubin AST ALT Alkaline Phosphatase Lactate Dehydrogenase C-Reactive Protein Total Protein Albumin 2.9 L Triglycerides Lipase Arterial Blood Glucose 226 H Arterial Blood Ionized Calcium Urine WBC (Auto) Coronavirus (PCR) SARS-CoV-2 IgG Ab Crossmatch 06/23/20 06/23/20 06/23/20 09:41 12:04 18:16 WBC RBC Hgb 9.1 L Hct 28.0 L MCV MCH MCHC RDW Lymph % (Auto) [place] % (Auto) Lymph # (Auto) [place] # (Auto) Baso # (Auto) Seg Neutrophils % Seg Neuts % (Manual) Lymphocytes % (Manual) Nucleated RBC % Seg Neutrophils # Seg Neutrophils # Man Lymphocytes # (Manual) Monocytes # (Manual) Eosinophils # (Manual) PT INR APTT D-Dimer Heparin Anti-Xa Level ABG pH POC ABG pCO2 POC ABG pO2 ABG pO2 ABG HCO3 ABG O2 Saturation ABG Base Excess ABG Hemoglobin ABG Oxyhemoglobin ABG Sodium ABG Potassium ABG Chloride ABG Glucose Oxyhemoglobin Carboxyhemoglobin Sodium Potassium Chloride Carbon Dioxide BUN Creatinine Glucose POC Glucose 146 H 162 H Lactic Acid Calcium Magnesium Ferritin Total Bilirubin Direct Bilirubin AST ALT Alkaline Phosphatase Lactate Dehydrogenase C-Reactive Protein Total Protein Albumin Triglycerides Lipase Arterial Blood Glucose Arterial Blood Ionized Calcium Urine WBC (Auto) Coronavirus (PCR) SARS-CoV-2 IgG Ab Crossmatch 06/23/20 06/23/20 06/24/20 23:24 23:41 02:39 WBC RBC Hgb 8.2 L 8.8 L Hct 24.9 L 26.8 L MCV MCH MCHC RDW Lymph % (Auto) [place] % (Auto) Lymph # (Auto) [place] # (Auto) Baso # (Auto) Seg Neutrophils % Seg Neuts % (Manual) Lymphocytes % (Manual) Nucleated RBC % Seg Neutrophils # Seg Neutrophils # Man Lymphocytes # (Manual) Monocytes # (Manual) Eosinophils # (Manual) PT INR APTT D-Dimer Heparin Anti-Xa Level ABG pH POC ABG pCO2 POC ABG pO2 ABG pO2 ABG HCO3 ABG O2 Saturation ABG Base Excess ABG Hemoglobin ABG Oxyhemoglobin ABG Sodium ABG Potassium ABG Chloride ABG Glucose Oxyhemoglobin Carboxyhemoglobin Sodium Potassium Chloride Carbon Dioxide BUN Creatinine Glucose POC Glucose 248 H Lactic Acid Calcium Magnesium Ferritin Total Bilirubin Direct Bilirubin AST ALT Alkaline Phosphatase Lactate Dehydrogenase C-Reactive Protein Total Protein Albumin Triglycerides Lipase Arterial Blood Glucose Arterial Blood Ionized Calcium Urine WBC (Auto) Coronavirus (PCR) SARS-CoV-2 IgG Ab Crossmatch 06/24/20 06/24/20 06/24/20 02:39 02:45 05:31 WBC RBC Hgb Hct MCV MCH MCHC RDW Lymph % (Auto) [place] % (Auto) Lymph # (Auto) [place] # (Auto) Baso # (Auto) Seg Neutrophils % Seg Neuts % (Manual) Lymphocytes % (Manual) Nucleated RBC % Seg Neutrophils # Seg Neutrophils # Man Lymphocytes # (Manual) Monocytes # (Manual) Eosinophils # (Manual) PT INR APTT D-Dimer Heparin Anti-Xa Level ABG pH POC ABG pCO2 66.9 H POC ABG pO2 109.7 H ABG pO2 ABG HCO3 ABG O2 Saturation ABG Base Excess ABG Hemoglobin 9.7 L ABG Oxyhemoglobin ABG Sodium 135.0 L ABG Potassium ABG Chloride 97.0 L ABG Glucose 277 H Oxyhemoglobin Carboxyhemoglobin Sodium 136 L Potassium Chloride 95.0 L Carbon Dioxide 34 H D BUN 24 H Creatinine 0.3 L Glucose 260 H POC Glucose 164 H Lactic Acid Calcium Magnesium Ferritin Total Bilirubin Direct Bilirubin AST ALT Alkaline Phosphatase Lactate Dehydrogenase C-Reactive Protein Total Protein 5.2 L Albumin 2.6 L Triglycerides Lipase Arterial Blood Glucose 277 H Arterial Blood Ionized Calcium Urine WBC (Auto) Coronavirus (PCR) SARS-CoV-2 IgG Ab Crossmatch 1206/24/20 06/24/20 10:00 11:49 17:39 WBC RBC Hgb 8.9 L Hct 26.5 L MCV MCH MCHC RDW Lymph % (Auto) [place] % (Auto) Lymph # (Auto) [place] # (Auto) Baso # (Auto) Seg Neutrophils % Seg Neuts % (Manual) Lymphocytes % (Manual) Nucleated RBC % Seg Neutrophils # Seg Neutrophils # Man Lymphocytes # (Manual) Monocytes # (Manual) Eosinophils # (Manual) PT INR APTT D-Dimer Heparin Anti-Xa Level ABG pH POC ABG pCO2 POC ABG pO2 ABG pO2 ABG HCO3 ABG O2 Saturation ABG Base Excess ABG Hemoglobin ABG Oxyhemoglobin ABG Sodium ABG Potassium ABG Chloride ABG Glucose Oxyhemoglobin Carboxyhemoglobin Sodium Potassium Chloride Carbon Dioxide BUN Creatinine Glucose POC Glucose 198 H 223 H Lactic Acid Calcium Magnesium Ferritin Total Bilirubin Direct Bilirubin AST ALT Alkaline Phosphatase Lactate Dehydrogenase C-Reactive Protein Total Protein Albumin Triglycerides Lipase Arterial Blood Glucose Arterial Blood Ionized Calcium Urine WBC (Auto) Coronavirus (PCR) SARS-CoV-2 IgG Ab Crossmatch 06/24/20 06/25/20 06/25/20 23:56 02:16 04:08 WBC RBC Hgb Hct MCV MCH MCHC RDW Lymph % (Auto) [place] % (Auto) Lymph # (Auto) [place] # (Auto) Baso # (Auto) Seg Neutrophils % Seg Neuts % (Manual) Lymphocytes % (Manual) Nucleated RBC % Seg Neutrophils # Seg Neutrophils # Man Lymphocytes # (Manual) Monocytes # (Manual) Eosinophils # (Manual) PT INR APTT D-Dimer Heparin Anti-Xa Level ABG pH 7.454 H POC ABG pCO2 56.9 H POC ABG pO2 61.0 L ABG pO2 ABG HCO3 ABG O2 Saturation ABG Base Excess ABG Hemoglobin ABG Oxyhemoglobin ABG Sodium 134.3 L ABG Potassium ABG Chloride 92.0 L ABG Glucose 246 H Oxyhemoglobin Carboxyhemoglobin Sodium 134 L Potassium Chloride 89.7 L Carbon Dioxide 36 H BUN Creatinine 0.3 L Glucose 254 H POC Glucose 225 H Lactic Acid Calcium Magnesium Ferritin Total Bilirubin Direct Bilirubin AST ALT Alkaline Phosphatase Lactate Dehydrogenase C-Reactive Protein Total Protein Albumin 2.9 L Triglycerides Lipase Arterial Blood Glucose 246 H Arterial Blood Ionized Calcium Urine WBC (Auto) Coronavirus (PCR) SARS-CoV-2 IgG Ab Crossmatch 06/25/20 06/25/20 06/25/20 05:44 11:35 17:33 WBC RBC Hgb Hct MCV MCH MCHC RDW Lymph % (Auto) [place] % (Auto) Lymph # (Auto) [place] # (Auto) Baso # (Auto) Seg Neutrophils % Seg Neuts % (Manual) Lymphocytes % (Manual) Nucleated RBC % Seg Neutrophils # Seg Neutrophils # Man Lymphocytes # (Manual) Monocytes # (Manual) Eosinophils # (Manual) PT INR APTT D-Dimer Heparin Anti-Xa Level ABG pH POC ABG pCO2 POC ABG pO2 ABG pO2 ABG HCO3 ABG O2 Saturation ABG Base Excess ABG Hemoglobin ABG Oxyhemoglobin ABG Sodium ABG Potassium ABG Chloride ABG Glucose Oxyhemoglobin Carboxyhemoglobin Sodium Potassium Chloride Carbon Dioxide BUN Creatinine Glucose POC Glucose 170 H 175 H 229 H Lactic Acid Calcium Magnesium Ferritin Total Bilirubin Direct Bilirubin AST ALT Alkaline Phosphatase Lactate Dehydrogenase C-Reactive Protein Total Protein Albumin Triglycerides Lipase Arterial Blood Glucose Arterial Blood Ionized Calcium Urine WBC (Auto) Coronavirus (PCR) SARS-CoV-2 IgG Ab Crossmatch 06/25/20 06/26/20 06/26/20 23:55 02:17 02:17 WBC RBC Hgb 10.0 L Hct 30.4 L MCV MCH MCHC RDW Lymph % (Auto) [place] % (Auto) Lymph # (Auto) [place] # (Auto) Baso # (Auto) Seg Neutrophils % Seg Neuts % (Manual) Lymphocytes % (Manual) Nucleated RBC % Seg Neutrophils # Seg Neutrophils # Man Lymphocytes # (Manual) Monocytes # (Manual) Eosinophils # (Manual) PT INR APTT D-Dimer Heparin Anti-Xa Level ABG pH POC ABG pCO2 POC ABG pO2 ABG pO2 ABG HCO3 ABG O2 Saturation ABG Base Excess ABG Hemoglobin ABG Oxyhemoglobin ABG Sodium ABG Potassium ABG Chloride ABG Glucose Oxyhemoglobin Carboxyhemoglobin Sodium 136 L Potassium Chloride 90.1 L Carbon Dioxide 39 H BUN Creatinine 0.2 L Glucose 232 H POC Glucose 192 H Lactic Acid Calcium Magnesium Ferritin Total Bilirubin Direct Bilirubin AST ALT Alkaline Phosphatase Lactate Dehydrogenase C-Reactive Protein Total Protein 6.1 L Albumin 2.9 L Triglycerides Lipase Arterial Blood Glucose Arterial Blood Ionized Calcium Urine WBC (Auto) Coronavirus (PCR) SARS-CoV-2 IgG Ab Crossmatch 06/26/20 06/26/20 06/26/20 04:15 04:49 05:28 WBC RBC Hgb Hct MCV MCH MCHC RDW Lymph % (Auto) [place] % (Auto) Lymph # (Auto) [place] # (Auto) Baso # (Auto) Seg Neutrophils % Seg Neuts % (Manual) Lymphocytes % (Manual) Nucleated RBC % Seg Neutrophils # Seg Neutrophils # Man Lymphocytes # (Manual) Monocytes # (Manual) Eosinophils # (Manual) PT INR APTT D-Dimer Heparin Anti-Xa Level ABG pH 7.453 H POC ABG pCO2 59.6 H POC ABG pO2 ABG pO2 ABG HCO3 ABG O2 Saturation ABG Base Excess ABG Hemoglobin 10.0 L ABG Oxyhemoglobin ABG Sodium 134.2 L ABG Potassium 3.3 L ABG Chloride 92.0 L ABG Glucose 305 H Oxyhemoglobin Carboxyhemoglobin Sodium Potassium Chloride Carbon Dioxide BUN Creatinine Glucose POC Glucose 234 H Lactic Acid Calcium Magnesium Ferritin Total Bilirubin Direct Bilirubin AST ALT Alkaline Phosphatase Lactate Dehydrogenase C-Reactive Protein Total Protein Albumin Triglycerides 203 H Lipase Arterial Blood Glucose 305 H Arterial Blood Ionized Calcium Urine WBC (Auto) Coronavirus (PCR) SARS-CoV-2 IgG Ab Crossmatch 06/26/20 06/26/20 06/26/20 11:58 17:58 21:32 WBC RBC Hgb Hct MCV MCH MCHC RDW Lymph % (Auto) [place] % (Auto) Lymph # (Auto) [place] # (Auto) Baso # (Auto) Seg Neutrophils % Seg Neuts % (Manual) Lymphocytes % (Manual) Nucleated RBC % Seg Neutrophils # Seg Neutrophils # Man Lymphocytes # (Manual) Monocytes # (Manual) Eosinophils # (Manual) PT INR APTT D-Dimer Heparin Anti-Xa Level ABG pH POC ABG pCO2 POC ABG pO2 ABG pO2 ABG HCO3 ABG O2 Saturation ABG Base Excess ABG Hemoglobin ABG Oxyhemoglobin ABG Sodium ABG Potassium ABG Chloride ABG Glucose Oxyhemoglobin Carboxyhemoglobin Sodium Potassium Chloride Carbon Dioxide BUN Creatinine Glucose POC Glucose 198 H 193 H 191 H Lactic Acid Calcium Magnesium Ferritin Total Bilirubin Direct Bilirubin AST ALT Alkaline Phosphatase Lactate Dehydrogenase C-Reactive Protein Total Protein Albumin Triglycerides Lipase Arterial Blood Glucose Arterial Blood Ionized Calcium Urine WBC (Auto) Coronavirus (PCR) SARS-CoV-2 IgG Ab Crossmatch 06/26/20 06/27/20 06/27/20 23:40 04:35 05:32 WBC RBC Hgb Hct MCV MCH MCHC RDW Lymph % (Auto) [place] % (Auto) Lymph # (Auto) [place] # (Auto) Baso # (Auto) Seg Neutrophils % Seg Neuts % (Manual) Lymphocytes % (Manual) Nucleated RBC % Seg Neutrophils # Seg Neutrophils # Man Lymphocytes # (Manual) Monocytes # (Manual) Eosinophils # (Manual) PT INR APTT D-Dimer Heparin Anti-Xa Level ABG pH 7.464 H POC ABG pCO2 60.8 H POC ABG pO2 ABG pO2 ABG HCO3 ABG O2 Saturation ABG Base Excess ABG Hemoglobin 10.1 L ABG Oxyhemoglobin ABG Sodium ABG Potassium 2.9 L ABG Chloride 92.0 L ABG Glucose 298 H Oxyhemoglobin Carboxyhemoglobin Sodium Potassium Chloride Carbon Dioxide BUN Creatinine Glucose POC Glucose 241 H 211 H Lactic Acid Calcium Magnesium Ferritin Total Bilirubin Direct Bilirubin AST ALT Alkaline Phosphatase Lactate Dehydrogenase C-Reactive Protein Total Protein Albumin Triglycerides Lipase Arterial Blood Glucose 298 H Arterial Blood Ionized Calcium Urine WBC (Auto) Coronavirus (PCR) SARS-CoV-2 IgG Ab Crossmatch 06/27/20 06/27/20 06/27/20 12:37 18:08 20:52 WBC RBC Hgb Hct MCV MCH MCHC RDW Lymph % (Auto) [place] % (Auto) Lymph # (Auto) [place] # (Auto) Baso # (Auto) Seg Neutrophils % Seg Neuts % (Manual) Lymphocytes % (Manual) Nucleated RBC % Seg Neutrophils # Seg Neutrophils # Man Lymphocytes # (Manual) Monocytes # (Manual) Eosinophils # (Manual) PT INR APTT D-Dimer Heparin Anti-Xa Level ABG pH POC ABG pCO2 POC ABG pO2 ABG pO2 ABG HCO3 ABG O2 Saturation ABG Base Excess ABG Hemoglobin ABG Oxyhemoglobin ABG Sodium ABG Potassium ABG Chloride ABG Glucose Oxyhemoglobin Carboxyhemoglobin Sodium Potassium Chloride Carbon Dioxide BUN Creatinine Glucose POC Glucose 182 H 197 H 195 H Lactic Acid Calcium Magnesium Ferritin Total Bilirubin Direct Bilirubin AST ALT Alkaline Phosphatase Lactate Dehydrogenase C-Reactive Protein Total Protein Albumin Triglycerides Lipase Arterial Blood Glucose Arterial Blood Ionized Calcium Urine WBC (Auto) Coronavirus (PCR) SARS-CoV-2 IgG Ab Crossmatch 06/27/20 06/28/20 06/28/20 Unknown 04:17 04:50 WBC RBC Hgb Hct MCV MCH MCHC RDW Lymph % (Auto) [place] % (Auto) Lymph # (Auto) [place] # (Auto) Baso # (Auto) Seg Neutrophils % Seg Neuts % (Manual) Lymphocytes % (Manual) Nucleated RBC % Seg Neutrophils # Seg Neutrophils # Man Lymphocytes # (Manual) Monocytes # (Manual) Eosinophils # (Manual) PT INR APTT D-Dimer Heparin Anti-Xa Level ABG pH POC ABG pCO2 58.6 H POC ABG pO2 60.1 L ABG pO2 ABG HCO3 ABG O2 Saturation ABG Base Excess ABG Hemoglobin 10.0 L ABG Oxyhemoglobin ABG Sodium 125.3 L ABG Potassium ABG Chloride 93.0 L ABG Glucose 308 H Oxyhemoglobin Carboxyhemoglobin Sodium Potassium 2.9 L* Chloride 93.4 L Carbon Dioxide 42 H* BUN Creatinine 0.3 L Glucose 211 H POC Glucose 252 H Lactic Acid Calcium 8.1 L Magnesium Ferritin Total Bilirubin Direct Bilirubin AST ALT Alkaline Phosphatase Lactate Dehydrogenase C-Reactive Protein Total Protein 5.1 L Albumin 2.4 L Triglycerides Lipase Arterial Blood Glucose 308 H Arterial Blood Ionized Calcium Urine WBC (Auto) Coronavirus (PCR) SARS-CoV-2 IgG Ab Crossmatch 06/28/20 06/28/20 06/28/20 06:35 06:35 11:36 WBC 18.9 H RBC 2.85 L Hgb 9.5 L Hct 28.4 L MCV 100 H MCH 33 H MCHC RDW 17.3 H Lymph % (Auto) [place] % (Auto) Lymph # (Auto) [place] # (Auto) Baso # (Auto) Seg Neutrophils % 88.6 H Seg Neuts % (Manual) 95.0 H Lymphocytes % (Manual) 1.0 L Nucleated RBC % Seg Neutrophils # 15.9 H Seg Neutrophils # Man 18.0 H Lymphocytes # (Manual) 0.2 L Monocytes # (Manual) Eosinophils # (Manual) PT INR APTT D-Dimer Heparin Anti-Xa Level ABG pH POC ABG pCO2 POC ABG pO2 ABG pO2 ABG HCO3 ABG O2 Saturation ABG Base Excess ABG Hemoglobin ABG Oxyhemoglobin ABG Sodium ABG Potassium ABG Chloride ABG Glucose Oxyhemoglobin Carboxyhemoglobin Sodium Potassium Chloride 94.2 L Carbon Dioxide 38 H BUN Creatinine 0.3 L Glucose 228 H POC Glucose 243 H Lactic Acid Calcium Magnesium Ferritin Total Bilirubin Direct Bilirubin AST ALT Alkaline Phosphatase Lactate Dehydrogenase C-Reactive Protein Total Protein 6.1 L Albumin 2.7 L Triglycerides Lipase Arterial Blood Glucose Arterial Blood Ionized Calcium Urine WBC (Auto) Coronavirus (PCR) SARS-CoV-2 IgG Ab Crossmatch 06/28/20 06/28/20 06/29/20 16:53 21:10 00:06 WBC RBC Hgb Hct MCV MCH MCHC RDW Lymph % (Auto) [place] % (Auto) Lymph # (Auto) [place] # (Auto) Baso # (Auto) Seg Neutrophils % Seg Neuts % (Manual) Lymphocytes % (Manual) Nucleated RBC % Seg Neutrophils # Seg Neutrophils # Man Lymphocytes # (Manual) Monocytes # (Manual) Eosinophils # (Manual) PT INR APTT D-Dimer Heparin Anti-Xa Level ABG pH POC ABG pCO2 POC ABG pO2 ABG pO2 ABG HCO3 ABG O2 Saturation ABG Base Excess ABG Hemoglobin ABG Oxyhemoglobin ABG Sodium ABG Potassium ABG Chloride ABG Glucose Oxyhemoglobin Carboxyhemoglobin Sodium Potassium Chloride Carbon Dioxide BUN Creatinine Glucose POC Glucose 211 H 195 H 200 H Lactic Acid Calcium Magnesium Ferritin Total Bilirubin Direct Bilirubin AST ALT Alkaline Phosphatase Lactate Dehydrogenase C-Reactive Protein Total Protein Albumin Triglycerides Lipase Arterial Blood Glucose Arterial Blood Ionized Calcium Urine WBC (Auto) Coronavirus (PCR) SARS-CoV-2 IgG Ab Crossmatch 06/29/20 06/29/20 06/29/20 03:11 04:00 04:00 WBC 18.8 H RBC 2.82 L Hgb 10.1 L Hct 28.5 L MCV 101 H MCH 36 H MCHC 36 H RDW 17.5 H Lymph % (Auto) 10.7 L [place] % (Auto) Lymph # (Auto) [place] # (Auto) 1.0 H Baso # (Auto) 0.3 H Seg Neutrophils % 82.2 H Seg Neuts % (Manual) Lymphocytes % (Manual) Nucleated RBC % Seg Neutrophils # 15.5 H Seg Neutrophils # Man Lymphocytes # (Manual) Monocytes # (Manual) Eosinophils # (Manual) PT INR APTT D-Dimer Heparin Anti-Xa Level ABG pH POC ABG pCO2 57.5 H POC ABG pO2 69.1 L ABG pO2 ABG HCO3 ABG O2 Saturation ABG Base Excess ABG Hemoglobin 10.2 L ABG Oxyhemoglobin 92.3 L ABG Sodium 130.7 L ABG Potassium 3.2 L ABG Chloride 93.0 L ABG Glucose 228 H Oxyhemoglobin Carboxyhemoglobin Sodium 134 L Potassium 3.3 L Chloride 89.5 L Carbon Dioxide 40 H BUN Creatinine 0.2 L Glucose 190 H POC Glucose Lactic Acid Calcium Magnesium Ferritin Total Bilirubin Direct Bilirubin AST < 5 L ALT < 5 L Alkaline Phosphatase Lactate Dehydrogenase C-Reactive Protein Total Protein 5.9 L Albumin 2.2 L Triglycerides Lipase Arterial Blood Glucose 228 H Arterial Blood Ionized Calcium Urine WBC (Auto) Coronavirus (PCR) SARS-CoV-2 IgG Ab Crossmatch 06/29/20 06/29/20 06/29/20 05:00 05:23 09:36 WBC RBC Hgb Hct MCV MCH MCHC RDW Lymph % (Auto) [place] % (Auto) Lymph # (Auto) [place] # (Auto) Baso # (Auto) Seg Neutrophils % Seg Neuts % (Manual) Lymphocytes % (Manual) Nucleated RBC % Seg Neutrophils # Seg Neutrophils # Man Lymphocytes # (Manual) Monocytes # (Manual) Eosinophils # (Manual) PT INR APTT D-Dimer Heparin Anti-Xa Level ABG pH POC ABG pCO2 POC ABG pO2 ABG pO2 ABG HCO3 ABG O2 Saturation ABG Base Excess ABG Hemoglobin ABG Oxyhemoglobin ABG Sodium ABG Potassium ABG Chloride ABG Glucose Oxyhemoglobin Carboxyhemoglobin Sodium Potassium Chloride Carbon Dioxide BUN Creatinine Glucose POC Glucose 165 H Lactic Acid Calcium Magnesium Ferritin Total Bilirubin Direct Bilirubin AST ALT Alkaline Phosphatase Lactate Dehydrogenase C-Reactive Protein Total Protein Albumin Triglycerides 1544 H 1799 H Lipase Arterial Blood Glucose Arterial Blood Ionized Calcium Urine WBC (Auto) Coronavirus (PCR) SARS-CoV-2 IgG Ab Crossmatch 06/29/20 06/29/20 06/29/20 09:36 12:02 18:00 WBC RBC Hgb Hct MCV MCH MCHC RDW Lymph % (Auto) [place] % (Auto) Lymph # (Auto) [place] # (Auto) Baso # (Auto) Seg Neutrophils % Seg Neuts % (Manual) Lymphocytes % (Manual) Nucleated RBC % Seg Neutrophils # Seg Neutrophils # Man Lymphocytes # (Manual) Monocytes # (Manual) Eosinophils # (Manual) PT INR APTT D-Dimer Heparin Anti-Xa Level ABG pH POC ABG pCO2 POC ABG pO2 ABG pO2 ABG HCO3 ABG O2 Saturation ABG Base Excess ABG Hemoglobin ABG Oxyhemoglobin ABG Sodium ABG Potassium ABG Chloride ABG Glucose Oxyhemoglobin Carboxyhemoglobin Sodium Potassium Chloride Carbon Dioxide BUN Creatinine Glucose POC Glucose 197 H 187 H Lactic Acid Calcium Magnesium Ferritin Total Bilirubin Direct Bilirubin AST ALT Alkaline Phosphatase Lactate Dehydrogenase C-Reactive Protein Total Protein Albumin Triglycerides Lipase 86 H Arterial Blood Glucose Arterial Blood Ionized Calcium Urine WBC (Auto) Coronavirus (PCR) SARS-CoV-2 IgG Ab Crossmatch 06/29/20 06/30/20 06/30/20 23:33 03:46 05:50 WBC RBC Hgb Hct MCV MCH MCHC RDW Lymph % (Auto) [place] % (Auto) Lymph # (Auto) [place] # (Auto) Baso # (Auto) Seg Neutrophils % Seg Neuts % (Manual) Lymphocytes % (Manual) Nucleated RBC % Seg Neutrophils # Seg Neutrophils # Man Lymphocytes # (Manual) Monocytes # (Manual) Eosinophils # (Manual) PT INR APTT D-Dimer Heparin Anti-Xa Level ABG pH 7.466 H POC ABG pCO2 57.3 H POC ABG pO2 66.1 L ABG pO2 ABG HCO3 ABG O2 Saturation ABG Base Excess ABG Hemoglobin 10.2 L ABG Oxyhemoglobin 92.3 L ABG Sodium 134.4 L ABG Potassium 3.2 L ABG Chloride 94.0 L ABG Glucose 178 H Oxyhemoglobin Carboxyhemoglobin Sodium Potassium Chloride Carbon Dioxide BUN Creatinine Glucose POC Glucose 170 H 170 H Lactic Acid Calcium Magnesium Ferritin Total Bilirubin Direct Bilirubin AST ALT Alkaline Phosphatase Lactate Dehydrogenase C-Reactive Protein Total Protein Albumin Triglycerides Lipase Arterial Blood Glucose 178 H Arterial Blood Ionized Calcium Urine WBC (Auto) Coronavirus (PCR) SARS-CoV-2 IgG Ab Crossmatch 06/30/20 06/30/20 06/30/20 07:00 07:00 12:04 WBC 15.6 H RBC 2.91 L Hgb 9.8 L Hct 29.7 L MCV 102 H MCH 34 H MCHC RDW 17.8 H Lymph % (Auto) [place] % (Auto) Lymph # (Auto) [place] # (Auto) Baso # (Auto) Seg Neutrophils % Seg Neuts % (Manual) Lymphocytes % (Manual) 5.0 L Nucleated RBC % Seg Neutrophils # Seg Neutrophils # Man 14.8 H Lymphocytes # (Manual) 0.8 L Monocytes # (Manual) Eosinophils # (Manual) PT INR APTT D-Dimer Heparin Anti-Xa Level ABG pH POC ABG pCO2 POC ABG pO2 ABG pO2 ABG HCO3 ABG O2 Saturation ABG Base Excess ABG Hemoglobin ABG Oxyhemoglobin ABG Sodium ABG Potassium ABG Chloride ABG Glucose Oxyhemoglobin Carboxyhemoglobin Sodium Potassium Chloride 93.3 L Carbon Dioxide 43 H* BUN Creatinine 0.3 L Glucose 260 H POC Glucose 245 H Lactic Acid Calcium Magnesium Ferritin Total Bilirubin Direct Bilirubin AST ALT Alkaline Phosphatase Lactate Dehydrogenase C-Reactive Protein Total Protein Albumin 2.8 L Triglycerides 452 H Lipase Arterial Blood Glucose Arterial Blood Ionized Calcium Urine WBC (Auto) Coronavirus (PCR) SARS-CoV-2 IgG Ab Crossmatch 06/30/20 07/01/20 07/01/20 17:32 00:02 05:02 WBC RBC Hgb Hct MCV MCH MCHC RDW Lymph % (Auto) [place] % (Auto) Lymph # (Auto) [place] # (Auto) Baso # (Auto) Seg Neutrophils % Seg Neuts % (Manual) Lymphocytes % (Manual) Nucleated RBC % Seg Neutrophils # Seg Neutrophils # Man Lymphocytes # (Manual) Monocytes # (Manual) Eosinophils # (Manual) PT INR APTT D-Dimer Heparin Anti-Xa Level ABG pH POC ABG pCO2 58.1 H POC ABG pO2 ABG pO2 ABG HCO3 ABG O2 Saturation ABG Base Excess ABG Hemoglobin 11.2 L ABG Oxyhemoglobin ABG Sodium 132.7 L ABG Potassium ABG Chloride 92.0 L ABG Glucose 238 H Oxyhemoglobin Carboxyhemoglobin Sodium Potassium Chloride Carbon Dioxide BUN Creatinine Glucose POC Glucose 209 H 208 H Lactic Acid Calcium Magnesium Ferritin Total Bilirubin Direct Bilirubin AST ALT Alkaline Phosphatase Lactate Dehydrogenase C-Reactive Protein Total Protein Albumin Triglycerides Lipase Arterial Blood Glucose 238 H Arterial Blood Ionized Calcium Urine WBC (Auto) Coronavirus (PCR) SARS-CoV-2 IgG Ab Crossmatch 07/01/20 07/01/20 07/01/20 06:16 06:41 06:41 WBC 18.1 H RBC 2.33 L Hgb 7.1 L Hct 21.3 L D MCV MCH MCHC RDW Lymph % (Auto) [place] % (Auto) Lymph # (Auto) [place] # (Auto) Baso # (Auto) Seg Neutrophils % Seg Neuts % (Manual) 82.0 H Lymphocytes % (Manual) 7.0 L Nucleated RBC % 1.0 H Seg Neutrophils # Seg Neutrophils # Man 14.8 H Lymphocytes # (Manual) Monocytes # (Manual) 1.1 H Eosinophils # (Manual) 0.5 H PT INR APTT D-Dimer Heparin Anti-Xa Level < 0.10 L ABG pH POC ABG pCO2 POC ABG pO2 ABG pO2 ABG HCO3 ABG O2 Saturation ABG Base Excess ABG Hemoglobin ABG Oxyhemoglobin ABG Sodium ABG Potassium ABG Chloride ABG Glucose Oxyhemoglobin Carboxyhemoglobin Sodium Potassium Chloride Carbon Dioxide BUN Creatinine Glucose POC Glucose 180 H Lactic Acid Calcium Magnesium Ferritin Total Bilirubin Direct Bilirubin AST ALT Alkaline Phosphatase Lactate Dehydrogenase C-Reactive Protein Total Protein Albumin Triglycerides Lipase Arterial Blood Glucose Arterial Blood Ionized Calcium Urine WBC (Auto) Coronavirus (PCR) SARS-CoV-2 IgG Ab Crossmatch 07/01/20 07/01/20 07/01/20 08:11 12:04 16:16 WBC RBC Hgb Hct MCV MCH MCHC RDW Lymph % (Auto) [place] % (Auto) Lymph # (Auto) [place] # (Auto) Baso # (Auto) Seg Neutrophils % Seg Neuts % (Manual) Lymphocytes % (Manual) Nucleated RBC % Seg Neutrophils # Seg Neutrophils # Man Lymphocytes # (Manual) Monocytes # (Manual) Eosinophils # (Manual) PT INR APTT D-Dimer Heparin Anti-Xa Level 1.02 H ABG pH POC ABG pCO2 POC ABG pO2 ABG pO2 ABG HCO3 ABG O2 Saturation ABG Base Excess ABG Hemoglobin ABG Oxyhemoglobin ABG Sodium ABG Potassium ABG Chloride ABG Glucose Oxyhemoglobin Carboxyhemoglobin Sodium 135 L Potassium 3.0 L Chloride 93.1 L Carbon Dioxide 40 H BUN Creatinine 0.3 L Glucose 140 H POC Glucose 223 H Lactic Acid Calcium Magnesium Ferritin Total Bilirubin Direct Bilirubin AST ALT Alkaline Phosphatase Lactate Dehydrogenase C-Reactive Protein Total Protein Albumin Triglycerides Lipase Arterial Blood Glucose Arterial Blood Ionized Calcium Urine WBC (Auto) Coronavirus (PCR) SARS-CoV-2 IgG Ab Crossmatch 07/01/20 07/01/20 07/02/20 17:09 23:19 00:56 WBC RBC Hgb Hct MCV MCH MCHC RDW Lymph % (Auto) [place] % (Auto) Lymph # (Auto) [place] # (Auto) Baso # (Auto) Seg Neutrophils % Seg Neuts % (Manual) Lymphocytes % (Manual) Nucleated RBC % Seg Neutrophils # Seg Neutrophils # Man Lymphocytes # (Manual) Monocytes # (Manual) Eosinophils # (Manual) PT INR APTT D-Dimer Heparin Anti-Xa Level 0.22 L ABG pH POC ABG pCO2 POC ABG pO2 ABG pO2 ABG HCO3 ABG O2 Saturation ABG Base Excess ABG Hemoglobin ABG Oxyhemoglobin ABG Sodium ABG Potassium ABG Chloride ABG Glucose Oxyhemoglobin Carboxyhemoglobin Sodium Potassium Chloride Carbon Dioxide BUN Creatinine Glucose POC Glucose 233 H 255 H Lactic Acid Calcium Magnesium Ferritin Total Bilirubin Direct Bilirubin AST ALT Alkaline Phosphatase Lactate Dehydrogenase C-Reactive Protein Total Protein Albumin Triglycerides Lipase Arterial Blood Glucose Arterial Blood Ionized Calcium Urine WBC (Auto) Coronavirus (PCR) SARS-CoV-2 IgG Ab Crossmatch 07/02/20 07/02/20 07/02/20 03:51 05:35 11:39 WBC RBC Hgb Hct MCV MCH MCHC RDW Lymph % (Auto) [place] % (Auto) Lymph # (Auto) [place] # (Auto) Baso # (Auto) Seg Neutrophils % Seg Neuts % (Manual) Lymphocytes % (Manual) Nucleated RBC % Seg Neutrophils # Seg Neutrophils # Man Lymphocytes # (Manual) Monocytes # (Manual) Eosinophils # (Manual) PT INR APTT D-Dimer Heparin Anti-Xa Level ABG pH POC ABG pCO2 54.9 H POC ABG pO2 52.1 L ABG pO2 ABG HCO3 ABG O2 Saturation ABG Base Excess ABG Hemoglobin 11.9 L ABG Oxyhemoglobin 82.8 L ABG Sodium 130.2 L ABG Potassium ABG Chloride 92.0 L ABG Glucose 249 H Oxyhemoglobin Carboxyhemoglobin 1.9 H Sodium Potassium Chloride Carbon Dioxide BUN Creatinine Glucose POC Glucose 205 H 235 H Lactic Acid Calcium Magnesium Ferritin Total Bilirubin Direct Bilirubin AST ALT Alkaline Phosphatase Lactate Dehydrogenase C-Reactive Protein Total Protein Albumin Triglycerides Lipase Arterial Blood Glucose 249 H Arterial Blood Ionized Calcium Urine WBC (Auto) Coronavirus (PCR) SARS-CoV-2 IgG Ab Crossmatch 07/02/20 07/02/20 07/02/20 16:08 16:08 17:54 WBC 19.8 H RBC 3.28 L Hgb 10.7 L D Hct 32.7 L D MCV 100 H MCH 33 H MCHC RDW 17.2 H Lymph % (Auto) [place] % (Auto) Lymph # (Auto) [place] # (Auto) Baso # (Auto) Seg Neutrophils % Seg Neuts % (Manual) Lymphocytes % (Manual) Nucleated RBC % Seg Neutrophils # Seg Neutrophils # Man Lymphocytes # (Manual) Monocytes # (Manual) Eosinophils # (Manual) PT INR APTT D-Dimer Heparin Anti-Xa Level ABG pH POC ABG pCO2 POC ABG pO2 ABG pO2 ABG HCO3 ABG O2 Saturation ABG Base Excess ABG Hemoglobin ABG Oxyhemoglobin ABG Sodium ABG Potassium ABG Chloride ABG Glucose Oxyhemoglobin Carboxyhemoglobin Sodium 136 L Potassium Chloride 92.4 L Carbon Dioxide 35 H BUN Creatinine 0.3 L Glucose 203 H POC Glucose 175 H Lactic Acid Calcium Magnesium Ferritin Total Bilirubin Direct Bilirubin AST ALT Alkaline Phosphatase Lactate Dehydrogenase C-Reactive Protein Total Protein Albumin Triglycerides Lipase Arterial Blood Glucose Arterial Blood Ionized Calcium Urine WBC (Auto) Coronavirus (PCR) SARS-CoV-2 IgG Ab Crossmatch 07/02/20 07/03/20 07/03/20 23:46 03:25 05:54 WBC RBC Hgb Hct MCV MCH MCHC RDW Lymph % (Auto) [place] % (Auto) Lymph # (Auto) [place] # (Auto) Baso # (Auto) Seg Neutrophils % Seg Neuts % (Manual) Lymphocytes % (Manual) Nucleated RBC % Seg Neutrophils # Seg Neutrophils # Man Lymphocytes # (Manual) Monocytes # (Manual) Eosinophils # (Manual) PT INR APTT D-Dimer Heparin Anti-Xa Level ABG pH 7.468 H POC ABG pCO2 51.5 H POC ABG pO2 ABG pO2 ABG HCO3 ABG O2 Saturation ABG Base Excess ABG Hemoglobin ABG Oxyhemoglobin ABG Sodium 130.2 L ABG Potassium ABG Chloride 91.0 L ABG Glucose 210 H Oxyhemoglobin Carboxyhemoglobin 1.6 H Sodium Potassium Chloride Carbon Dioxide BUN Creatinine Glucose POC Glucose 173 H 125 H Lactic Acid Calcium Magnesium Ferritin Total Bilirubin Direct Bilirubin AST ALT Alkaline Phosphatase Lactate Dehydrogenase C-Reactive Protein Total Protein Albumin Triglycerides Lipase Arterial Blood Glucose 210 H Arterial Blood Ionized Calcium Urine WBC (Auto) Coronavirus (PCR) SARS-CoV-2 IgG Ab Crossmatch 07/03/20 07/03/20 07/03/20 11:43 12:20 12:20 WBC 16.5 H RBC 3.13 L Hgb 10.4 L Hct 31.8 L MCV 102 H MCH 33 H MCHC RDW 17.2 H Lymph % (Auto) [place] % (Auto) Lymph # (Auto) [place] # (Auto) Baso # (Auto) Seg Neutrophils % Seg Neuts % (Manual) Lymphocytes % (Manual) Nucleated RBC % Seg Neutrophils # Seg Neutrophils # Man Lymphocytes # (Manual) Monocytes # (Manual) Eosinophils # (Manual) PT INR APTT D-Dimer Heparin Anti-Xa Level ABG pH POC ABG pCO2 POC ABG pO2 ABG pO2 ABG HCO3 ABG O2 Saturation ABG Base Excess ABG Hemoglobin ABG Oxyhemoglobin ABG Sodium ABG Potassium ABG Chloride ABG Glucose Oxyhemoglobin Carboxyhemoglobin Sodium 132 L Potassium Chloride 88.5 L Carbon Dioxide 37 H BUN Creatinine 0.3 L Glucose 230 H POC Glucose 223 H Lactic Acid Calcium Magnesium Ferritin Total Bilirubin Direct Bilirubin AST ALT Alkaline Phosphatase Lactate Dehydrogenase C-Reactive Protein Total Protein Albumin Triglycerides Lipase Arterial Blood Glucose Arterial Blood Ionized Calcium Urine WBC (Auto) Coronavirus (PCR) SARS-CoV-2 IgG Ab Crossmatch 07/03/20 07/03/20 07/04/20 17:24 21:41 00:54 WBC RBC Hgb Hct MCV MCH MCHC RDW Lymph % (Auto) [place] % (Auto) Lymph # (Auto) [place] # (Auto) Baso # (Auto) Seg Neutrophils % Seg Neuts % (Manual) Lymphocytes % (Manual) Nucleated RBC % Seg Neutrophils # Seg Neutrophils # Man Lymphocytes # (Manual) Monocytes # (Manual) Eosinophils # (Manual) PT INR APTT D-Dimer Heparin Anti-Xa Level ABG pH POC ABG pCO2 POC ABG pO2 ABG pO2 ABG HCO3 ABG O2 Saturation ABG Base Excess ABG Hemoglobin ABG Oxyhemoglobin ABG Sodium ABG Potassium ABG Chloride ABG Glucose Oxyhemoglobin Carboxyhemoglobin Sodium Potassium Chloride Carbon Dioxide BUN Creatinine Glucose POC Glucose 163 H 220 H 195 H Lactic Acid Calcium Magnesium Ferritin Total Bilirubin Direct Bilirubin AST ALT Alkaline Phosphatase Lactate Dehydrogenase C-Reactive Protein Total Protein Albumin Triglycerides Lipase Arterial Blood Glucose Arterial Blood Ionized Calcium Urine WBC (Auto) Coronavirus (PCR) SARS-CoV-2 IgG Ab Crossmatch 07/04/20 07/04/20 07/04/20 03:25 04:00 04:00 WBC 14.9 H RBC 2.91 L Hgb 9.5 L Hct 29.2 L MCV 100 H MCH 33 H MCHC RDW 16.7 H Lymph % (Auto) 8.4 L [place] % (Auto) Lymph # (Auto) [place] # (Auto) 1.1 H Baso # (Auto) Seg Neutrophils % 84.2 H Seg Neuts % (Manual) Lymphocytes % (Manual) Nucleated RBC % Seg Neutrophils # 12.6 H Seg Neutrophils # Man Lymphocytes # (Manual) Monocytes # (Manual) Eosinophils # (Manual) PT INR APTT D-Dimer Heparin Anti-Xa Level ABG pH 7.474 H POC ABG pCO2 POC ABG pO2 51.8 L ABG pO2 ABG HCO3 ABG O2 Saturation ABG Base Excess ABG Hemoglobin ABG Oxyhemoglobin ABG Sodium ABG Potassium ABG Chloride ABG Glucose Oxyhemoglobin Carboxyhemoglobin Sodium Potassium 3.4 L Chloride 92.1 L Carbon Dioxide 34 H BUN Creatinine 0.3 L Glucose 173 H POC Glucose Lactic Acid Calcium Magnesium Ferritin Total Bilirubin Direct Bilirubin AST ALT Alkaline Phosphatase Lactate Dehydrogenase C-Reactive Protein Total Protein Albumin Triglycerides Lipase Arterial Blood Glucose Arterial Blood Ionized Calcium Urine WBC (Auto) Coronavirus (PCR) SARS-CoV-2 IgG Ab Crossmatch 07/04/20 07/04/20 07/04/20 06:18 11:39 17:18 WBC RBC Hgb Hct MCV MCH MCHC RDW Lymph % (Auto) [place] % (Auto) Lymph # (Auto) [place] # (Auto) Baso # (Auto) Seg Neutrophils % Seg Neuts % (Manual) Lymphocytes % (Manual) Nucleated RBC % Seg Neutrophils # Seg Neutrophils # Man Lymphocytes # (Manual) Monocytes # (Manual) Eosinophils # (Manual) PT INR APTT D-Dimer Heparin Anti-Xa Level ABG pH POC ABG pCO2 POC ABG pO2 ABG pO2 ABG HCO3 ABG O2 Saturation ABG Base Excess ABG Hemoglobin ABG Oxyhemoglobin ABG Sodium ABG Potassium ABG Chloride ABG Glucose Oxyhemoglobin Carboxyhemoglobin Sodium Potassium Chloride Carbon Dioxide BUN Creatinine Glucose POC Glucose 158 H 257 H 148 H Lactic Acid Calcium Magnesium Ferritin Total Bilirubin Direct Bilirubin AST ALT Alkaline Phosphatase Lactate Dehydrogenase C-Reactive Protein Total Protein Albumin Triglycerides Lipase Arterial Blood Glucose Arterial Blood Ionized Calcium Urine WBC (Auto) Coronavirus (PCR) SARS-CoV-2 IgG Ab Crossmatch 07/04/20 07/05/20 07/05/20 23:23 03:13 05:18 WBC 13.3 H RBC 2.90 L Hgb 9.8 L Hct 29.3 L MCV 101 H MCH 34 H MCHC RDW 17.0 H Lymph % (Auto) 11.1 L [place] % (Auto) Lymph # (Auto) [place] # (Auto) Baso # (Auto) Seg Neutrophils % 82.3 H Seg Neuts % (Manual) Lymphocytes % (Manual) Nucleated RBC % Seg Neutrophils # 10.9 H Seg Neutrophils # Man Lymphocytes # (Manual) Monocytes # (Manual) Eosinophils # (Manual) PT INR APTT D-Dimer Heparin Anti-Xa Level ABG pH 7.48 H POC ABG pCO2 52.0 H POC ABG pO2 ABG pO2 ABG HCO3 ABG O2 Saturation ABG Base Excess ABG Hemoglobin 10.0 L ABG Oxyhemoglobin ABG Sodium 131.0 L ABG Potassium 3.3 L ABG Chloride 93.0 L ABG Glucose 177 H Oxyhemoglobin Carboxyhemoglobin Sodium Potassium Chloride Carbon Dioxide BUN Creatinine Glucose POC Glucose 227 H Lactic Acid Calcium Magnesium Ferritin Total Bilirubin Direct Bilirubin AST ALT Alkaline Phosphatase Lactate Dehydrogenase C-Reactive Protein Total Protein Albumin Triglycerides Lipase Arterial Blood Glucose 177 H Arterial Blood Ionized Calcium Urine WBC (Auto) Coronavirus (PCR) SARS-CoV-2 IgG Ab Crossmatch 07/05/20 07/05/20 07/05/20 05:18 05:25 05:57 WBC RBC Hgb Hct MCV MCH MCHC RDW Lymph % (Auto) [place] % (Auto) Lymph # (Auto) [place] # (Auto) Baso # (Auto) Seg Neutrophils % Seg Neuts % (Manual) Lymphocytes % (Manual) Nucleated RBC % Seg Neutrophils # Seg Neutrophils # Man Lymphocytes # (Manual) Monocytes # (Manual) Eosinophils # (Manual) PT INR APTT D-Dimer Heparin Anti-Xa Level ABG pH 7.519 H POC ABG pCO2 POC ABG pO2 198.6 H ABG pO2 ABG HCO3 ABG O2 Saturation ABG Base Excess ABG Hemoglobin 10.3 L ABG Oxyhemoglobin 98.7 H ABG Sodium 133.6 L ABG Potassium 3.3 L ABG Chloride 93.0 L ABG Glucose 175 H Oxyhemoglobin Carboxyhemoglobin Sodium Potassium 3.4 L Chloride 92.5 L Carbon Dioxide 36 H BUN Creatinine 0.3 L Glucose 148 H POC Glucose 170 H Lactic Acid Calcium Magnesium Ferritin Total Bilirubin Direct Bilirubin AST ALT Alkaline Phosphatase Lactate Dehydrogenase C-Reactive Protein Total Protein Albumin Triglycerides Lipase Arterial Blood Glucose 175 H Arterial Blood Ionized Calcium Urine WBC (Auto) Coronavirus (PCR) SARS-CoV-2 IgG Ab Crossmatch 07/05/20 07/05/20 07/06/20 11:37 18:39 00:04 WBC RBC Hgb Hct MCV MCH MCHC RDW Lymph % (Auto) [place] % (Auto) Lymph # (Auto) [place] # (Auto) Baso # (Auto) Seg Neutrophils % Seg Neuts % (Manual) Lymphocytes % (Manual) Nucleated RBC % Seg Neutrophils # Seg Neutrophils # Man Lymphocytes # (Manual) Monocytes # (Manual) Eosinophils # (Manual) PT INR APTT D-Dimer Heparin Anti-Xa Level ABG pH POC ABG pCO2 POC ABG pO2 ABG pO2 ABG HCO3 ABG O2 Saturation ABG Base Excess ABG Hemoglobin ABG Oxyhemoglobin ABG Sodium ABG Potassium ABG Chloride ABG Glucose Oxyhemoglobin Carboxyhemoglobin Sodium Potassium Chloride Carbon Dioxide BUN Creatinine Glucose POC Glucose 195 H 200 H 222 H Lactic Acid Calcium Magnesium Ferritin Total Bilirubin Direct Bilirubin AST ALT Alkaline Phosphatase Lactate Dehydrogenase C-Reactive Protein Total Protein Albumin Triglycerides Lipase Arterial Blood Glucose Arterial Blood Ionized Calcium Urine WBC (Auto) Coronavirus (PCR) SARS-CoV-2 IgG Ab Crossmatch 07/06/20 07/06/20 07/06/20 05:25 06:52 06:52 WBC 15.8 H RBC 3.17 L Hgb 10.4 L Hct 31.5 L MCV 99 H MCH 33 H MCHC RDW 17.0 H Lymph % (Auto) [place] % (Auto) Lymph # (Auto) [place] # (Auto) Baso # (Auto) Seg Neutrophils % Seg Neuts % (Manual) Lymphocytes % (Manual) Nucleated RBC % Seg Neutrophils # Seg Neutrophils # Man Lymphocytes # (Manual) Monocytes # (Manual) Eosinophils # (Manual) PT INR APTT D-Dimer Heparin Anti-Xa Level ABG pH POC ABG pCO2 POC ABG pO2 ABG pO2 ABG HCO3 ABG O2 Saturation ABG Base Excess ABG Hemoglobin ABG Oxyhemoglobin ABG Sodium ABG Potassium ABG Chloride ABG Glucose Oxyhemoglobin Carboxyhemoglobin Sodium 135 L Potassium 3.4 L Chloride 91.9 L Carbon Dioxide 38 H BUN Creatinine 0.3 L Glucose 189 H POC Glucose 165 H Lactic Acid Calcium Magnesium Ferritin Total Bilirubin Direct Bilirubin AST ALT Alkaline Phosphatase Lactate Dehydrogenase C-Reactive Protein Total Protein Albumin Triglycerides Lipase Arterial Blood Glucose Arterial Blood Ionized Calcium Urine WBC (Auto) Coronavirus (PCR) SARS-CoV-2 IgG Ab Crossmatch 07/06/20 07/06/20 07/06/20 13:01 18:04 23:08 WBC RBC Hgb Hct MCV MCH MCHC RDW Lymph % (Auto) [place] % (Auto) Lymph # (Auto) [place] # (Auto) Baso # (Auto) Seg Neutrophils % Seg Neuts % (Manual) Lymphocytes % (Manual) Nucleated RBC % Seg Neutrophils # Seg Neutrophils # Man Lymphocytes # (Manual) Monocytes # (Manual) Eosinophils # (Manual) PT INR APTT D-Dimer Heparin Anti-Xa Level ABG pH POC ABG pCO2 POC ABG pO2 ABG pO2 ABG HCO3 ABG O2 Saturation ABG Base Excess ABG Hemoglobin ABG Oxyhemoglobin ABG Sodium ABG Potassium ABG Chloride ABG Glucose Oxyhemoglobin Carboxyhemoglobin Sodium Potassium Chloride Carbon Dioxide BUN Creatinine Glucose POC Glucose 195 H 169 H 173 H Lactic Acid Calcium Magnesium Ferritin Total Bilirubin Direct Bilirubin AST ALT Alkaline Phosphatase Lactate Dehydrogenase C-Reactive Protein Total Protein Albumin Triglycerides Lipase Arterial Blood Glucose Arterial Blood Ionized Calcium Urine WBC (Auto) Coronavirus (PCR) SARS-CoV-2 IgG Ab Crossmatch 07/07/20 07/07/20 07/07/20 05:35 05:35 05:39 WBC 17.6 H RBC 3.16 L Hgb 10.4 L Hct 31.5 L MCV 100 H MCH 33 H MCHC RDW 16.7 H Lymph % (Auto) 11.1 L [place] % (Auto) Lymph # (Auto) [place] # (Auto) 1.0 H Baso # (Auto) Seg Neutrophils % 83.0 H Seg Neuts % (Manual) Lymphocytes % (Manual) Nucleated RBC % Seg Neutrophils # 14.6 H Seg Neutrophils # Man Lymphocytes # (Manual) Monocytes # (Manual) Eosinophils # (Manual) PT INR APTT D-Dimer Heparin Anti-Xa Level ABG pH POC ABG pCO2 POC ABG pO2 ABG pO2 ABG HCO3 ABG O2 Saturation ABG Base Excess ABG Hemoglobin ABG Oxyhemoglobin ABG Sodium ABG Potassium ABG Chloride ABG Glucose Oxyhemoglobin Carboxyhemoglobin Sodium 135 L Potassium 3.4 L Chloride 94.3 L Carbon Dioxide 32 H BUN Creatinine 0.2 L Glucose 240 H POC Glucose 191 H Lactic Acid Calcium Magnesium Ferritin Total Bilirubin Direct Bilirubin AST ALT Alkaline Phosphatase Lactate Dehydrogenase C-Reactive Protein Total Protein Albumin Triglycerides Lipase Arterial Blood Glucose Arterial Blood Ionized Calcium Urine WBC (Auto) Coronavirus (PCR) SARS-CoV-2 IgG Ab Crossmatch 07/07/20 07/07/20 07/07/20 12:08 16:39 23:41 WBC RBC Hgb Hct MCV MCH MCHC RDW Lymph % (Auto) [place] % (Auto) Lymph # (Auto) [place] # (Auto) Baso # (Auto) Seg Neutrophils % Seg Neuts % (Manual) Lymphocytes % (Manual) Nucleated RBC % Seg Neutrophils # Seg Neutrophils # Man Lymphocytes # (Manual) Monocytes # (Manual) Eosinophils # (Manual) PT INR APTT D-Dimer Heparin Anti-Xa Level ABG pH POC ABG pCO2 POC ABG pO2 ABG pO2 ABG HCO3 ABG O2 Saturation ABG Base Excess ABG Hemoglobin ABG Oxyhemoglobin ABG Sodium ABG Potassium ABG Chloride ABG Glucose Oxyhemoglobin Carboxyhemoglobin Sodium Potassium Chloride Carbon Dioxide BUN Creatinine Glucose POC Glucose 248 H 209 H 231 H Lactic Acid Calcium Magnesium Ferritin Total Bilirubin Direct Bilirubin AST ALT Alkaline Phosphatase Lactate Dehydrogenase C-Reactive Protein Total Protein Albumin Triglycerides Lipase Arterial Blood Glucose Arterial Blood Ionized Calcium Urine WBC (Auto) Coronavirus (PCR) SARS-CoV-2 IgG Ab Crossmatch 07/08/20 07/08/20 07/08/20 04:58 04:58 05:38 WBC 21.0 H RBC 2.86 L Hgb 9.2 L Hct 28.6 L MCV 100 H MCH MCHC RDW 16.7 H Lymph % (Auto) [place] % (Auto) Lymph # (Auto) [place] # (Auto) Baso # (Auto) Seg Neutrophils % Seg Neuts % (Manual) 93.0 H Lymphocytes % (Manual) 3.0 L Nucleated RBC % Seg Neutrophils # Seg Neutrophils # Man 19.5 H Lymphocytes # (Manual) 0.6 L Monocytes # (Manual) Eosinophils # (Manual) PT INR APTT D-Dimer Heparin Anti-Xa Level ABG pH POC ABG pCO2 POC ABG pO2 ABG pO2 ABG HCO3 ABG O2 Saturation ABG Base Excess ABG Hemoglobin ABG Oxyhemoglobin ABG Sodium ABG Potassium ABG Chloride ABG Glucose Oxyhemoglobin Carboxyhemoglobin Sodium Potassium 3.0 L Chloride Carbon Dioxide BUN Creatinine 0.2 L Glucose 201 H POC Glucose 161 H Lactic Acid Calcium 7.9 L D Magnesium Ferritin Total Bilirubin Direct Bilirubin AST ALT Alkaline Phosphatase Lactate Dehydrogenase C-Reactive Protein Total Protein Albumin Triglycerides Lipase Arterial Blood Glucose Arterial Blood Ionized Calcium Urine WBC (Auto) Coronavirus (PCR) SARS-CoV-2 IgG Ab Crossmatch 07/08/20 07/08/20 07/08/20 12:19 16:26 Unknown WBC RBC Hgb Hct MCV MCH MCHC RDW Lymph % (Auto) [place] % (Auto) Lymph # (Auto) [place] # (Auto) Baso # (Auto) Seg Neutrophils % Seg Neuts % (Manual) Lymphocytes % (Manual) Nucleated RBC % Seg Neutrophils # Seg Neutrophils # Man Lymphocytes # (Manual) Monocytes # (Manual) Eosinophils # (Manual) PT INR APTT D-Dimer Heparin Anti-Xa Level ABG pH POC ABG pCO2 POC ABG pO2 ABG pO2 75.3 L ABG HCO3 34.3 H ABG O2 Saturation ABG Base Excess 8.7 H ABG Hemoglobin 10.2 L ABG Oxyhemoglobin ABG Sodium ABG Potassium ABG Chloride ABG Glucose Oxyhemoglobin 93.7 L Carboxyhemoglobin Sodium Potassium Chloride Carbon Dioxide BUN Creatinine Glucose POC Glucose 152 H 173 H Lactic Acid Calcium Magnesium Ferritin Total Bilirubin Direct Bilirubin AST ALT Alkaline Phosphatase Lactate Dehydrogenase C-Reactive Protein Total Protein Albumin Triglycerides Lipase Arterial Blood Glucose Arterial Blood Ionized Calcium Urine WBC (Auto) Coronavirus (PCR) SARS-CoV-2 IgG Ab Crossmatch 07/09/20 07/09/20 07/09/20 00:01 06:00 11:55 WBC RBC Hgb Hct MCV MCH MCHC RDW Lymph % (Auto) [place] % (Auto) Lymph # (Auto) [place] # (Auto) Baso # (Auto) Seg Neutrophils % Seg Neuts % (Manual) Lymphocytes % (Manual) Nucleated RBC % Seg Neutrophils # Seg Neutrophils # Man Lymphocytes # (Manual) Monocytes # (Manual) Eosinophils # (Manual) PT INR APTT D-Dimer Heparin Anti-Xa Level ABG pH POC ABG pCO2 POC ABG pO2 ABG pO2 ABG HCO3 ABG O2 Saturation ABG Base Excess ABG Hemoglobin ABG Oxyhemoglobin ABG Sodium ABG Potassium ABG Chloride ABG Glucose Oxyhemoglobin Carboxyhemoglobin Sodium Potassium Chloride Carbon Dioxide BUN Creatinine Glucose POC Glucose 207 H 141 H 228 H Lactic Acid Calcium Magnesium Ferritin Total Bilirubin Direct Bilirubin AST ALT Alkaline Phosphatase Lactate Dehydrogenase C-Reactive Protein Total Protein Albumin Triglycerides Lipase Arterial Blood Glucose Arterial Blood Ionized Calcium Urine WBC (Auto) Coronavirus (PCR) SARS-CoV-2 IgG Ab Crossmatch 07/09/20 07/09/20 07/09/20 16:47 23:53 Unknown WBC RBC Hgb Hct MCV MCH MCHC RDW Lymph % (Auto) [place] % (Auto) Lymph # (Auto) [place] # (Auto) Baso # (Auto) Seg Neutrophils % Seg Neuts % (Manual) Lymphocytes % (Manual) Nucleated RBC % Seg Neutrophils # Seg Neutrophils # Man Lymphocytes # (Manual) Monocytes # (Manual) Eosinophils # (Manual) PT INR APTT D-Dimer Heparin Anti-Xa Level ABG pH POC ABG pCO2 POC ABG pO2 ABG pO2 ABG HCO3 ABG O2 Saturation ABG Base Excess ABG Hemoglobin ABG Oxyhemoglobin ABG Sodium ABG Potassium ABG Chloride ABG Glucose Oxyhemoglobin Carboxyhemoglobin Sodium 132 L Potassium Chloride 92.7 L Carbon Dioxide 35 H BUN Creatinine 0.2 L Glucose 234 H POC Glucose 136 H 219 H Lactic Acid Calcium Magnesium Ferritin Total Bilirubin Direct Bilirubin AST ALT Alkaline Phosphatase Lactate Dehydrogenase C-Reactive Protein Total Protein Albumin Triglycerides Lipase Arterial Blood Glucose Arterial Blood Ionized Calcium Urine WBC (Auto) Coronavirus (PCR) SARS-CoV-2 IgG Ab Crossmatch 07/10/20 07/10/20 07/10/20 05:20 12:05 18:38 WBC RBC Hgb Hct MCV MCH MCHC RDW Lymph % (Auto) [place] % (Auto) Lymph # (Auto) [place] # (Auto) Baso # (Auto) Seg Neutrophils % Seg Neuts % (Manual) Lymphocytes % (Manual) Nucleated RBC % Seg Neutrophils # Seg Neutrophils # Man Lymphocytes # (Manual) Monocytes # (Manual) Eosinophils # (Manual) PT INR APTT D-Dimer Heparin Anti-Xa Level ABG pH POC ABG pCO2 POC ABG pO2 ABG pO2 ABG HCO3 ABG O2 Saturation ABG Base Excess ABG Hemoglobin ABG Oxyhemoglobin ABG Sodium ABG Potassium ABG Chloride ABG Glucose Oxyhemoglobin Carboxyhemoglobin Sodium Potassium Chloride Carbon Dioxide BUN Creatinine Glucose POC Glucose 221 H 174 H 152 H Lactic Acid Calcium Magnesium Ferritin Total Bilirubin Direct Bilirubin AST ALT Alkaline Phosphatase Lactate Dehydrogenase C-Reactive Protein Total Protein Albumin Triglycerides Lipase Arterial Blood Glucose Arterial Blood Ionized Calcium Urine WBC (Auto) Coronavirus (PCR) SARS-CoV-2 IgG Ab Crossmatch 07/11/20 07/11/20 07/11/20 00:16 05:42 08:13 WBC 11.9 H RBC 3.13 L Hgb 10.2 L Hct 31.2 L MCV 100 H MCH 33 H MCHC RDW 16.4 H Lymph % (Auto) [place] % (Auto) 9.3 H Lymph # (Auto) [place] # (Auto) 1.1 H Baso # (Auto) Seg Neutrophils % 72.7 H Seg Neuts % (Manual) Lymphocytes % (Manual) Nucleated RBC % Seg Neutrophils # 8.7 H Seg Neutrophils # Man Lymphocytes # (Manual) Monocytes # (Manual) Eosinophils # (Manual) PT INR APTT D-Dimer Heparin Anti-Xa Level ABG pH POC ABG pCO2 POC ABG pO2 ABG pO2 ABG HCO3 ABG O2 Saturation ABG Base Excess ABG Hemoglobin ABG Oxyhemoglobin ABG Sodium ABG Potassium ABG Chloride ABG Glucose Oxyhemoglobin Carboxyhemoglobin Sodium Potassium Chloride Carbon Dioxide BUN Creatinine Glucose POC Glucose 170 H 186 H Lactic Acid Calcium Magnesium Ferritin Total Bilirubin Direct Bilirubin AST ALT Alkaline Phosphatase Lactate Dehydrogenase C-Reactive Protein Total Protein Albumin Triglycerides Lipase Arterial Blood Glucose Arterial Blood Ionized Calcium Urine WBC (Auto) Coronavirus (PCR) SARS-CoV-2 IgG Ab Crossmatch 07/11/20 07/11/20 07/11/20 08:13 11:35 18:07 WBC RBC Hgb Hct MCV MCH MCHC RDW Lymph % (Auto) [place] % (Auto) Lymph # (Auto) [place] # (Auto) Baso # (Auto) Seg Neutrophils % Seg Neuts % (Manual) Lymphocytes % (Manual) Nucleated RBC % Seg Neutrophils # Seg Neutrophils # Man Lymphocytes # (Manual) Monocytes # (Manual) Eosinophils # (Manual) PT INR APTT D-Dimer Heparin Anti-Xa Level ABG pH POC ABG pCO2 POC ABG pO2 ABG pO2 ABG HCO3 ABG O2 Saturation ABG Base Excess ABG Hemoglobin ABG Oxyhemoglobin ABG Sodium ABG Potassium ABG Chloride ABG Glucose Oxyhemoglobin Carboxyhemoglobin Sodium 135 L Potassium Chloride 92.8 L Carbon Dioxide 38 H BUN Creatinine 0.2 L Glucose 132 H POC Glucose 129 H 156 H Lactic Acid Calcium Magnesium Ferritin Total Bilirubin Direct Bilirubin AST ALT Alkaline Phosphatase Lactate Dehydrogenase C-Reactive Protein Total Protein Albumin Triglycerides Lipase Arterial Blood Glucose Arterial Blood Ionized Calcium Urine WBC (Auto) Coronavirus (PCR) SARS-CoV-2 IgG Ab Crossmatch 07/11/20 07/11/20 07/12/20 18:36 23:18 05:28 WBC RBC Hgb Hct MCV MCH MCHC RDW Lymph % (Auto) [place] % (Auto) Lymph # (Auto) [place] # (Auto) Baso # (Auto) Seg Neutrophils % Seg Neuts % (Manual) Lymphocytes % (Manual) Nucleated RBC % Seg Neutrophils # Seg Neutrophils # Man Lymphocytes # (Manual) Monocytes # (Manual) Eosinophils # (Manual) PT INR APTT D-Dimer Heparin Anti-Xa Level ABG pH POC ABG pCO2 POC ABG pO2 70.9 L ABG pO2 ABG HCO3 ABG O2 Saturation ABG Base Excess ABG Hemoglobin 10.8 L ABG Oxyhemoglobin 92.5 L ABG Sodium 131.8 L ABG Potassium 3.2 L ABG Chloride 91.0 L ABG Glucose 181 H Oxyhemoglobin Carboxyhemoglobin Sodium Potassium Chloride Carbon Dioxide BUN Creatinine Glucose POC Glucose 189 H 190 H Lactic Acid Calcium Magnesium Ferritin Total Bilirubin Direct Bilirubin AST ALT Alkaline Phosphatase Lactate Dehydrogenase C-Reactive Protein Total Protein Albumin Triglycerides Lipase Arterial Blood Glucose 181 H Arterial Blood Ionized Calcium Urine WBC (Auto) Coronavirus (PCR) SARS-CoV-2 IgG Ab Crossmatch 07/12/20 07/12/20 07/12/20 11:33 17:45 23:59 WBC RBC Hgb Hct MCV MCH MCHC RDW Lymph % (Auto) [place] % (Auto) Lymph # (Auto) [place] # (Auto) Baso # (Auto) Seg Neutrophils % Seg Neuts % (Manual) Lymphocytes % (Manual) Nucleated RBC % Seg Neutrophils # Seg Neutrophils # Man Lymphocytes # (Manual) Monocytes # (Manual) Eosinophils # (Manual) PT INR APTT D-Dimer Heparin Anti-Xa Level ABG pH POC ABG pCO2 POC ABG pO2 ABG pO2 ABG HCO3 ABG O2 Saturation ABG Base Excess ABG Hemoglobin ABG Oxyhemoglobin ABG Sodium ABG Potassium ABG Chloride ABG Glucose Oxyhemoglobin Carboxyhemoglobin Sodium Potassium Chloride Carbon Dioxide BUN Creatinine Glucose POC Glucose 151 H 211 H 169 H Lactic Acid Calcium Magnesium Ferritin Total Bilirubin Direct Bilirubin AST ALT Alkaline Phosphatase Lactate Dehydrogenase C-Reactive Protein Total Protein Albumin Triglycerides Lipase Arterial Blood Glucose Arterial Blood Ionized Calcium Urine WBC (Auto) Coronavirus (PCR) SARS-CoV-2 IgG Ab Crossmatch 07/13/20 07/13/20 07/13/20 05:44 08:31 08:31 WBC 21.3 H RBC 2.92 L Hgb 9.7 L Hct 28.7 L MCV 98 H MCH 33 H MCHC RDW 16.8 H Lymph % (Auto) [place] % (Auto) Lymph # (Auto) [place] # (Auto) Baso # (Auto) Seg Neutrophils % Seg Neuts % (Manual) 96.0 H Lymphocytes % (Manual) 2.0 L Nucleated RBC % Seg Neutrophils # Seg Neutrophils # Man 20.4 H Lymphocytes # (Manual) 0.4 L Monocytes # (Manual) Eosinophils # (Manual) PT INR APTT D-Dimer Heparin Anti-Xa Level ABG pH POC ABG pCO2 POC ABG pO2 ABG pO2 ABG HCO3 ABG O2 Saturation ABG Base Excess ABG Hemoglobin ABG Oxyhemoglobin ABG Sodium ABG Potassium ABG Chloride ABG Glucose Oxyhemoglobin Carboxyhemoglobin Sodium Potassium 2.9 L* D Chloride 94.4 L Carbon Dioxide 37 H BUN Creatinine 0.2 L Glucose 166 H POC Glucose 122 H Lactic Acid Calcium Magnesium Ferritin Total Bilirubin Direct Bilirubin AST ALT Alkaline Phosphatase Lactate Dehydrogenase C-Reactive Protein Total Protein Albumin Triglycerides Lipase Arterial Blood Glucose Arterial Blood Ionized Calcium Urine WBC (Auto) Coronavirus (PCR) SARS-CoV-2 IgG Ab Crossmatch 07/13/20 07/13/20 07/13/20 11:54 13:52 17:40 WBC RBC Hgb Hct MCV MCH MCHC RDW Lymph % (Auto) [place] % (Auto) Lymph # (Auto) [place] # (Auto) Baso # (Auto) Seg Neutrophils % Seg Neuts % (Manual) Lymphocytes % (Manual) Nucleated RBC % Seg Neutrophils # Seg Neutrophils # Man Lymphocytes # (Manual) Monocytes # (Manual) Eosinophils # (Manual) PT INR APTT D-Dimer Heparin Anti-Xa Level ABG pH 7.477 H POC ABG pCO2 54.4 H POC ABG pO2 126.8 H ABG pO2 ABG HCO3 ABG O2 Saturation ABG Base Excess ABG Hemoglobin 11.5 L ABG Oxyhemoglobin ABG Sodium ABG Potassium 3.2 L ABG Chloride 92.0 L ABG Glucose 169 H Oxyhemoglobin Carboxyhemoglobin Sodium Potassium Chloride Carbon Dioxide BUN Creatinine Glucose POC Glucose 132 H 128 H Lactic Acid Calcium Magnesium Ferritin Total Bilirubin Direct Bilirubin AST ALT Alkaline Phosphatase Lactate Dehydrogenase C-Reactive Protein Total Protein Albumin Triglycerides Lipase Arterial Blood Glucose 169 H Arterial Blood Ionized Calcium Urine WBC (Auto) Coronavirus (PCR) SARS-CoV-2 IgG Ab Crossmatch 07/14/20 07:49 WBC RBC Hgb Hct MCV MCH MCHC RDW Lymph % (Auto) [place] % (Auto) Lymph # (Auto) [place] # (Auto) Baso # (Auto) Seg Neutrophils % Seg Neuts % (Manual) Lymphocytes % (Manual) Nucleated RBC % Seg Neutrophils # Seg Neutrophils # Man Lymphocytes # (Manual) Monocytes # (Manual) Eosinophils # (Manual) PT INR APTT D-Dimer Heparin Anti-Xa Level ABG pH POC ABG pCO2 POC ABG pO2 ABG pO2 ABG HCO3 ABG O2 Saturation ABG Base Excess ABG Hemoglobin ABG Oxyhemoglobin ABG Sodium ABG Potassium ABG Chloride ABG Glucose Oxyhemoglobin Carboxyhemoglobin Sodium Potassium 2.7 L* Chloride 94.0 L Carbon Dioxide 37 H BUN Creatinine 0.3 L Glucose 110 H POC Glucose Lactic Acid Calcium Magnesium Ferritin Total Bilirubin Direct Bilirubin AST ALT Alkaline Phosphatase Lactate Dehydrogenase C-Reactive Protein Total Protein Albumin Triglycerides Lipase Arterial Blood Glucose Arterial Blood Ionized Calcium Urine WBC (Auto) Coronavirus (PCR) SARS-CoV-2 IgG Ab Crossmatch Chest x-ray: image reviewed Allied health notes reviewed: nursing
--- NOTE | 2020-07-14 15:00 | Progress Note ---
Assessment and Plan Pt with prolonged intubation for respiratory failure and hx of COVID+, successfully extubated. Chest tube placed several weeks ago for right pneumothorax stable and in no distress. Will place pleurovac on water seal, CXR in am. If negative for ptx will remove chest tube. Subjective Date of service: 07/14/20 Narrative: Over the past 24 hours patient was successfully extubated and placed on face mask. No acute respiratory events. Pt is arousable but not making full s entences, but denies being in pain or distress. Objective Vital Signs - 12hr 07/14/20 07/14/20 07/14/20 03:00 03:30 04:00 Temperature 98.8 F Pulse Rate 103 H 101 H 99 H Pulse Rate [ 86 From Monitor] Respiratory 22 18 19 Rate Blood Pressure 128/71 122/71 131/73 O2 Sat by Pulse 100 100 100 Oximetry 07/14/20 07/14/20 07/14/20 04:30 05:00 05:30 Temperature Pulse Rate 102 H 99 H 99 H Pulse Rate [ From Monitor] Respiratory 18 21 19 Rate Blood Pressure 117/74 127/72 123/70 O2 Sat by Pulse 100 100 100 Oximetry 07/14/20 07/14/20 07/14/20 06:00 08:36 12:19 Temperature Pulse Rate 97 H 97 H Pulse Rate [ From Monitor] Respiratory 23 23 Rate Blood Pressure 131/72 131/72 O2 Sat by Pulse 100 100 100 Oximetry - General physical appearance well developed, no distress - Respiratory normal expansion, other (moderatley labored on O2 mask, chest tube in place on suction with no sign of air leak) - Labs 07/13/20 08:31 07/14/20 07:49 Diabetes panel 07/13/20 07/14/20 Range/Units 08:31 07:49 Sodium 139 141 (137-145) mmol/L Potassium 2.9 L* D 2.7 L* (3.6-5.0) mmol/L Chloride 94.4 L 94.0 L (98-107) mmol/L Carbon Dioxide 37 H 37 H (22-30) mmol/L BUN 10 11 (9-20) mg/dL Creatinine 0.2 L 0.3 L (0.8-1.3) mg/dL Glucose 166 H 110 H (75-100) mg/dL Calcium 8.8 9.6 (8.4-10.2) mg/dL Calcium panel 07/13/20 07/14/20 Range/Units 08:31 07:49 Calcium 8.8 9.6 (8.4-10.2) mg/dL Pituitary panel 07/13/20 07/14/20 Range/Units 08:31 07:49 Sodium 139 141 (137-145) mmol/L Potassium 2.9 L* D 2.7 L* (3.6-5.0) mmol/L Chloride 94.4 L 94.0 L (98-107) mmol/L Carbon Dioxide 37 H 37 H (22-30) mmol/L BUN 10 11 (9-20) mg/dL Creatinine 0.2 L 0.3 L (0.8-1.3) mg/dL Glucose 166 H 110 H (75-100) mg/dL Calcium 8.8 9.6 (8.4-10.2) mg/dL Adrenal panel 07/13/20 07/14/20 Range/Units 08:31 07:49 Sodium 139 141 (137-145) mmol/L Potassium 2.9 L* D 2.7 L* (3.6-5.0) mmol/L Chloride 94.4 L 94.0 L (98-107) mmol/L Carbon Dioxide 37 H 37 H (22-30) mmol/L BUN 10 11 (9-20) mg/dL Creatinine 0.2 L 0.3 L (0.8-1.3) mg/dL Glucose 166 H 110 H (75-100) mg/dL Calcium 8.8 9.6 (8.4-10.2) mg/dL
[2020-07-14] MEDS: CEFEPIME/NS 2 GM/100 ML 2 GM/100 ML BAG IV SCH (21:52)
--- NOTE | 2020-07-15 02:13 | XRay Report ---
XR chest 1V ap INDICATION / CLINICAL INFORMATION: exam s/p chest tube on water seal. COMPARISON: 07/10/2020 aneurysm 26,020 FINDINGS: SUPPORT DEVICES: Patient has been extubated. Enteric tube courses beneath the diaphragm. Right chest tube is unchanged.PICC line terminates in the SVC. HEART / MEDIASTINUM: Unchanged. LUNGS / PLEURA: Persistent bilateral airspace disease which is similar to prior examination. There is a persistent tiny lucency seen along the right lateral upper thorax in a similar distribution as the prior pneumothorax. ADDITIONAL FINDINGS: No significant additional findings. IMPRESSION: 1. Persistent tiny right pneumothorax which is unchanged. Signer Name: Bubba Victoria MD Signed: 07/15/2020 2:08 AM Workstation Name: [id number]
[2020-07-15] MEDS: CEFEPIME/NS 2 GM/100 ML 2 GM/100 ML BAG IV SCH ×3 (04:00→21:05)
[2020-07-15] MEDS: INSULIN LISPRO 100 UNIT/ML VIAL 3 mL SUB-Q SCH ×4 (05:23→23:23)
[2020-07-15 06:13] LABS: Blood Urea Nitrogen 10 mg/dL (9-20); Calcium 9.4 mg/dL (8.4-10.2); Hemolysis Index 16
[2020-07-15 06:41] LABS: BUN/Creatinine Ratio 33
[2020-07-15] MEDS: ENOXAPARIN 80 MG/0.8 ML INJ SUB-Q SCH ×2 (09:24→21:06)
[2020-07-15] MEDS: ENOXAPARIN 30 MG/0.3 ML INJ SUB-Q SCH ×2 (09:25→21:06)
[2020-07-15] MEDS: methylPREDNISolone Sod Succinate 40 MG/1 ML INJ IV SCH (09:25)
[2020-07-15] MEDS: DOCUSATE SODIUM 100 MG/10 ML ORAL LIQD PO SCH ×2 (09:25→21:06)
[2020-07-15] MEDS: PHENobarbital 32.4 MG TAB PO SCH ×2 (09:26→21:05)
[2020-07-15] MEDS: FOLIC ACID 1 MG TAB PO SCH (09:26)
[2020-07-15] MEDS: QUEtiapine 100 MG TAB PO SCH ×3 (09:26→21:05)
[2020-07-15] MEDS: LANSOPRAZOLE 30 MG SOLUTAB FEEDTUBE SCH (09:26)
[2020-07-15] MEDS: MIDODRINE 5 MG TAB PO SCH ×3 (09:26→18:33)
[2020-07-15] MEDS: QUEtiapine 200 MG TAB PO SCH ×3 (09:26→21:05)
[2020-07-15] MEDS: POTASSIUM CHLORIDE 20 MEQ PACKET FEEDTUBE SCH ×2 (09:37→13:21)
--- NOTE | 2020-07-15 11:44 | Event Note ---
Date: 07/15/20 No acute events overnight after chest tube placed on water seal. This morning's CXR shows return of small right pneumothorax similar to before chest tube was placed. There was no pneumothorax noted on chest xray 5 days ago when he was still on suction. He is currently extubated but on BIPAP with a hx of about 6 weeks of being intubated on a ventilator. Will resume suction to pleurovac and repeat CXR in am. He may need more time s/p prolonged intubation before removing chest tube. Once he is off BIPAP and able to practice incentive spirometer, will do another trial of water seal. Will continue to follow.
--- NOTE | 2020-07-15 12:54 | Progress Note ---
Assessment and Plan Assessment and plan: - Acute hypoxemic respiratory failure; Patient intubated and on vent support --Severe COVID-19 bilateral pneumonia Coronavirus protocol: IV steroid therapy, completed remdesivir, isolation precautions, contact precautions, prone positioning while in bed, pulmonary toilet. ID following SARS CoV-2 IgG positive patient is NOT a candidate for COVID convalescent plasma --Severe sepsis/septic shock, due to COVID 19 PNA cont pressors as needed -- Acute kidney injury (SEN) , likely vasomotor nephropathy Resolved, IV fluids, avoid nephrotoxins --Acute on chronic anemia Guaiac test positive GI evaluation PPIs Continue to monitor -- Elevated liver function tests Suspected secondary to alcoholic liver disease. Supportive care, alcohol cessation, patient counseled. --Colonic distention GI evaluation -recommend stool softeners Serial abdominal x-rays Monitor electrolytes and replete -- DVT prophylaxis On therapeutic Lovenox 50 YO Male with Obesity, ETOH Dependence presents to ED for evaluation for shortness of breath, generalized weakness, fatigue, malaise, body aches, decreased exercise tolerance over the past 5 days. EMS was notified and upon arrival the patient was found to be in distress with a pulse oximetry of 76% on room air as well as fever to 103 F. In the ER chest x-ray and was found to have bilateral pneumonia. Patient admitted to medical floor and initiated on pneumonia protocol as well as COVID-19 protocol. Patient reports being diagnosed with coronavirus 2 days ago before admission. 06/16/2020. Patient currently on mechanical ventilation with AC mode rate 30, tidal volume 500, FiO2 70% and PEEP of 16. Continue anticoagulation with Lovenox 110 milligrams subcu every 12 hours. Wean sedation of fentanyl/Versed as needed. Currently with IV steroids of Solu-Medrol 40 mg IV every 12 hours. Patient will likely need tracheostomy per pulmonary recommendations. Continue pressors to maintain MAP > 65. 06/17/2020. Patient currently on mechanical ventilation with AC mode rate 30, tidal volume 500, FiO2 65% and PEEP of 16. Continue anticoagulation with Lovenox 110 milligrams subcu every 12 hours. Wean sedation of fentanyl/Versed as needed. Currently with IV steroids of Solu-Medrol 40 mg IV every 12 hours. Patient will likely need tracheostomy per pulmonary recommendations. 06/18/2020. Patient currently on mechanical ventilation with AC mode rate 30, tidal volume 500, FiO2 70% and PEEP of 16. Continue Lovenox for anticoagulation and fentanyl/Versed for sedation. Wean steroids per pulmonary. CIWA protocol initiated for history of EtOH dependence 06/19/2020. Patient currently on mechanical ventilation with AC mode rate 30, tidal volume 500, FiO2 60% and PEEP of 16. Wean FiO2 as tolerated per protocol. Continue Lovenox for anticoagulation and fentanyl/Versed for sedation. Wean steroids per pulmonary. CIWA protocol initiated for history of EtOH dependence 06/20/2020. Patient currently on mechanical ventilation with AC mode rate 30, tidal volume 500, FiO2 60% and PEEP of 16. Wean FiO2 as tolerated, SBT per protocol. Continue Lovenox for anticoagulation and fentanyl/Versed for sedation. Wean steroids per pulmonary. Continue pressors to maintain MAP > 65 mmHg. Patient remains on ETT. Consider tracheostomy placement once oxygenation is better per pulmonary. CIWA protocol initiated for history of EtOH dependence. 06/21/2020. Patient with a small apical pneumothorax discovered yesterday. General surgery consulted and consider placing chest tube. Follow-up serial chest x-ray patient currently on mechanical ventilation with AC mode rate 30, tidal volume 500, FiO2 60% and PEEP of 16. Wean FiO2 as tolerated, SBT per protocol. Continue Lovenox for anticoagulation and fentanyl/Versed for sedation. Wean steroids per pulmonary. Continue pressors to maintain MAP > 65 mmHg. Patient remains on ETT. Consider tracheostomy placement once oxygenation is better per pulmonary. CIWA protocol initiated for history of EtOH dependence. 06/22. Status post right chest tube placement yesterday. Remains mechanically ventilated on pressors. Examination today shows slightly distended abdomen. KUB ordered. Awaiting stool guaiac. Plan to get a GI evaluation. 06/23. Has colonic distention on the x-ray. Discussed with GI-advised stool softeners for now and close monitoring. No indication for colonic decompression at this time. Guaiac test is positive. No emergent indication for endoscopy at this point as per GI. Continue to monitor hemoglobin. 06/24. Remains intubated. On pressors. GI following for positive guaiac stool a nd anemia, and colonic distention. 06/25. Repeat abdominal xray ordered. Remains on mechanical ventilation. 06/26. Abdominal xray - resolved colonic distension. Mechanically ventilated. 06/27. Plan for trach and PEG. 06/28: Awaiting trach and Peg. S\ome Bm REPORTED, will continue to monitor 06/29: Resume care, patient remains on ventilator support, waiting on trach and PEG placement. BM reported by the RN, continue to monitor. 06/30: Unable to wean off from vent, patient will need trach and PEG. Continue supportive care, tolerating tube feed. Monitor CBC and BMP 07/01: Continue mechanical ventilation, tube feeding as tolerated. Sedation as needed per mechanical ventilation protocol. Waiting on trach and PEG placement. 07/02: Continue current management, tube feeding, monitor CBC and BMP. Need trach and PEG-waiting on scheduling. Pulmonary critical care following. 07/03: wean off vent as tolerated. follow clinically. need trach and PEG 07/04: unable to wean. CT head ordered to assess for any changes but too unstable to do the test. need trach and PEG. 07/05: plan for trach/peg - GS following. off pressor - on midodrine. renal function stable. intubated, but alert and can follow minor commend. discussed with daughter by phone. 07/06/2020; Dr. Márquez discussed with patient's daughter about trach but the daughter needs time to think about it. Patient was intubated and alert, FiO2 40%. 07/07/2020; patient was intubated and alert, FiO2 40%. Patient was diaphoretic, tachycardic, and EKG was done which was abnormal for me. I called accounts receivable associate Dr Louis saw the EKG and said it is normal EKG, and the findings are abnormal. 07/08/2020; no significant change, patient is intubated and alert. 1/2: Patient continues on current management. Pulmonary recommending trach and PEG awaiting patient's decision on this. Will check intermittent labs 3: Ordered CT still pending. Patient was agitated at night. Appears to have calmed down. Will repeat labs today. 07/12: Continue supportive care, awaiting CPAP trial. discussed with pulmonary. Obtain labs today. Trach and Peg planned 07/13: Continues to current management, PLAN FOR Trach and PEG on Sunday if patient is not able to liberated from the ventilator, Continue to monitor Fever curve and repeat Sepsis work up if persistent fever 07/14: Now extubated, continue to work up. 07/15: Clinical stable for transfer to [facility], still with fever and now showing bactermia. Continue Abx per ID. monitor fever The high probability of a clinically significant, sudden or life threatening deterioration of the [respiratory] system(s) required my full and direct attention, intervention and personal management. The aggregate critical care time was [31] minutes. This time is in addition to time spent performing reported procedures but includes the following: [x] Data Review and interpretation [x] Patient assessment and monitoring of vital signs [x] Documentation [x] Medication orders and management History Interval history: Pt seen and examined. Doing well post extubation but still with recurrent fever Hospitalist Physical - Physical exam Narrative exam: VITAL SIGNS: Reviewed. Exam limited due to global pandemic PPE GENERAL: AWAKE, FOLLOWS COMMAND HEAD: No signs of head trauma. MOUTH: Oropharynx is normal. NECK: No adenopathy, no JVD. CHEST: Chest with diminished breath sounds bilaterally. No wheezes, rales, or rhonchi. CARDIAC: normal S1 and S2, without murmurs, gallops, or rubs. ABDOMEN: Slightly distended, bowel sounds hypoactive NEUROLOGICAL EXAM: DROWSY BUT AWAKE - Constitutional Vitals: Temp Pulse Resp BP Pulse Ox 99.1 F 124 H 22 113/59 100 07/15/20 08:00 07/15/20 11:00 07/15/20 11:00 07/15/20 11:00 07/15/20 11:00 General appearance: Present: no acute distress, mild distress, well-nourished HEART Score - HEART Score Troponin: Troponin T 0.015 ng/mL (0.00-0.029) 07/07/20 10:00 Results - Labs CBC & Chem 7: 07/13/20 08:31 07/15/20 05:31 Labs: Laboratory Last Values WBC 21.3 K/mm3 (4.5-11.0) H 07/13/20 08:31 RBC 2.92 M/mm3 (3.65-5.03) L 07/13/20 08:31 Hgb 9.7 gm/dl (11.8-15.2) L 07/13/20 08:31 Hct 28.7 % (35.5-45.6) L 07/13/20 08:31 MCV 98 fl (84-94) H 07/13/20 08:31 MCH 33 pg (28-32) H 07/13/20 08:31 MCHC 34 % (32-34) 07/13/20 08:31 RDW 16.8 % (13.2-15.2) H 07/13/20 08:31 Plt Count 242 K/mm3 (140-440) 07/13/20 08:31 Lymph % (Auto) 17.5 % (13.4-35.0) 07/11/20 08:13 [place] % (Auto) 9.3 % (0.0-7.3) H 07/11/20 08:13 Eos % (Auto) 0.3 % (0.0-4.3) 07/11/20 08:13 Baso % (Auto) 0.2 % (0.0-1.8) 07/11/20 08:13 Lymph # (Auto) 2.1 K/mm3 (1.2-5.4) 07/11/20 08:13 [place] # (Auto) 1.1 K/mm3 (0.0-0.8) H 07/11/20 08:13 Eos # (Auto) 0.0 K/mm3 (0.0-0.4) 07/11/20 08:13 Baso # (Auto) 0.0 K/mm3 (0.0-0.1) 07/11/20 08:13 Add Manual Diff Complete 07/13/20 08:31 Total Counted 100 07/13/20 08:31 Seg Neutrophils % Dried Yeast Supervisor 07/13/20 08:31 Seg Neuts % (Manual) 96.0 % (40.0-70.0) H 07/13/20 08:31 Band Neutrophils % 0 % 07/13/20 08:31 Lymphocytes % (Manual) 2.0 % (13.4-35.0) L 07/13/20 08:31 Reactive Lymphs % (Man) 0 % 07/13/20 08:31 Monocytes % (Manual) 2.0 % (0.0-7.3) 07/13/20 08:31 Eosinophils % (Manual) 0 % (0.0-4.3) 07/13/20 08:31 Basophils % (Manual) 0 % (0.0-1.8) 07/13/20 08:31 Metamyelocytes % 0 % 07/13/20 08:31 Myelocytes % 0 % 07/13/20 08:31 Promyelocytes % 0 % 07/13/20 08:31 Blast Cells % 0 % 07/13/20 08:31 Nucleated RBC % Not Reportable 07/13/20 08:31 Seg Neutrophils # 8.7 K/mm3 (1.8-7.7) H 07/11/20 08:13 Seg Neutrophils # Man 20.4 K/mm3 (1.8-7.7) H 07/13/20 08:31 Band Neutrophils # 0.0 K/mm3 07/13/20 08:31 Lymphocytes # (Manual) 0.4 K/mm3 (1.2-5.4) L 07/13/20 08:31 Abs React Lymphs (Man) 0.0 K/mm3 07/13/20 08:31 Monocytes # (Manual) 0.4 K/mm3 (0.0-0.8) 07/13/20 08:31 Eosinophils # (Manual) 0.0 K/mm3 (0.0-0.4) 07/13/20 08:31 Basophils # (Manual) 0.0 K/mm3 (0.0-0.1) 07/13/20 08:31 Metamyelocytes # 0.0 K/mm3 07/13/20 08:31 Myelocytes # 0.0 K/mm3 07/13/20 08:31 Promyelocytes # 0.0 K/mm3 07/13/20 08:31 Blast Cells # 0.0 K/mm3 07/13/20 08:31 WBC Morphology Not Reportable 07/13/20 08:31 Hypersegmented Neuts Not Reportable 07/13/20 08:31 Hyposegmented Neuts Not Reportable 07/13/20 08:31 Hypogranular Neuts Not Reportable 07/13/20 08:31 Smudge Cells Not Reportable 07/13/20 08:31 Toxic Granulation Not Reportable 07/13/20 08:31 Toxic Vacuolation Not Reportable 07/13/20 08:31 Dohle Bodies Not Reportable 07/13/20 08:31 Pelger-Huet Anomaly Not Reportable 07/13/20 08:31 Jason Rods Not Reportable 07/13/20 08:31 Platelet Estimate Consistent w auto 07/13/20 08:31 Clumped Platelets Not Reportable 07/13/20 08:31 Plt Clumps, EDTA Not Reportable 07/13/20 08:31 Large Platelets Not Reportable 07/13/20 08:31 Giant Platelets Not Reportable 07/13/20 08:31 Platelet Satelliting Not Reportable 07/13/20 08:31 Plt Morphology Comment Not Reportable 07/13/20 08:31 RBC Morphology Not Reportable 07/13/20 08:31 Dimorphic RBCs Not Reportable 07/13/20 08:31 Polychromasia Not Reportable 07/13/20 08:31 Hypochromasia Not Reportable 07/13/20 08:31 Poikilocytosis Not Reportable 07/13/20 08:31 Anisocytosis Not Reportable 07/13/20 08:31 Microcytosis Not Reportable 07/13/20 08:31 Macrocytosis Not Reportable 07/13/20 08:31 Spherocytes Not Reportable 07/13/20 08:31 Pappenheimer Bodies Not Reportable 07/13/20 08:31 Sickle Cells Not Reportable 07/13/20 08:31 Target Cells Not Reportable 07/13/20 08:31 Tear Drop Cells Not Reportable 07/13/20 08:31 Ovalocytes Not Reportable 07/13/20 08:31 Stomatocytes Few 07/13/20 08:31 Helmet Cells Not Reportable 07/13/20 08:31 [place] Bodies Not Reportable 07/13/20 08:31 [place] Rings Not Reportable 07/13/20 08:31 [place] Cells Not Reportable 07/13/20 08:31 Bite Cells Not Reportable 07/13/20 08:31 Crenated Cell Not Reportable 07/13/20 08:31 Elliptocytes Not Reportable 07/13/20 08:31 Acanthocytes (Spur) Not Reportable 07/13/20 08:31 Rouleaux Not Reportable 07/13/20 08:31 Hemoglobin C Crystals Not Reportable 07/13/20 08:31 Schistocytes Not Reportable 07/13/20 08:31 Malaria parasites Not Reportable 07/13/20 08:31 Josue Bodies Not Reportable 07/13/20 08:31 Hem Pathologist Commnt No 07/13/20 08:31 PT 11.8 Sec. (12.2-14.9) L 06/22/20 14:29 INR 0.88 (0.87-1.13) 06/22/20 14:29 APTT 23.5 Sec. (24.2-36.6) L 06/22/20 14:29 D-Dimer 1887.82 ng/mlDDU (0-234) H 05/20/20 08:16 Heparin Anti-Xa Level 0.37 U.I./ml (0.3-0.7) 07/02/20 16:08 ABG pH 7.477 (7.320-7.450) H 07/13/20 13:52 POC ABG pCO2 54.4 mmHg (32.0-48.0) H 07/13/20 13:52 ABG pCO2 53.1 mm Hg 07/08/20 Unknown POC ABG pO2 126.8 mmHg (83-108) H 07/13/20 13:52 ABG pO2 75.3 mm Hg (80.0-90.0) L 07/08/20 Unknown POC ABG HCO3 39.3 07/13/20 13:52 ABG HCO3 34.3 mmol/L (20.0-26.0) H 07/08/20 Unknown ABG O2 Saturation 96.5 % (95.0-99.0) 07/08/20 Unknown ABG O2 Content 13.5 (0.0-44) 07/08/20 Unknown POC ABG Base Excess 13.8 07/13/20 13:52 ABG Base Excess 8.7 mmol/L (-2.0-3.0) H 07/08/20 Unknown ABG Hemoglobin 11.5 (12.0-17.5) L 07/13/20 13:52 ABG Oxyhemoglobin 97.7 (94-98) 07/13/20 13:52 ABG Carboxyhemoglobin 2.4 % (0.0-5.0) 07/08/20 Unknown ABG Methemoglobin 0 (0.0-1.5) 07/13/20 13:52 ABG Sodium 136.2 mmol/L (136.0-145.0) 07/13/20 13:52 ABG Potassium 3.2 mmol/L (3.40-4.50) L 07/13/20 13:52 ABG Chloride 92.0 mmol/L (98-107) L 07/13/20 13:52 ABG Glucose 169 mg/dL (65-95) H 07/13/20 13:52 Oxyhemoglobin 93.7 % (95.0-99.0) L 07/08/20 Unknown Carboxyhemoglobin 1.2 (0.5-1.5) 07/13/20 13:52 FiO2 45 07/13/20 13:52 Sodium 137 mmol/L (137-145) 07/15/20 05:31 Potassium 3.2 mmol/L (3.6-5.0) L 07/15/20 05:31 Chloride 91.2 mmol/L (98-107) L 07/15/20 05:31 Carbon Dioxide 33 mmol/L (22-30) H 07/15/20 05:31 Anion Gap 16 mmol/L 07/15/20 05:31 BUN 10 mg/dL (9-20) 07/15/20 05:31 Creatinine 0.3 mg/dL (0.8-1.3) L 07/15/20 05:31 Estimated GFR > 60 ml/min 07/15/20 05:31 BUN/Creatinine Ratio 33 % 07/15/20 05:31 Glucose 139 mg/dL (75-100) H 07/15/20 05:31 POC Glucose 148 mg/dL (70-105) H 07/15/20 11:49 Lactic Acid 0.80 mmol/L (0.7-2.0) 07/13/20 15:45 Calcium 9.4 mg/dL (8.4-10.2) 07/15/20 05:31 Phosphorus 3.10 mg/dL (2.5-4.5) 06/15/20 04:00 Magnesium 1.80 mg/dL (1.7-2.3) 07/14/20 07:49 Ferritin 1496.0 ng/mL (30.0-300.0) H 06/14/20 11:50 Total Bilirubin 0.60 mg/dL (0.1-1.2) 06/30/20 07:00 Direct Bilirubin 0.6 mg/dL (0-0.2) H 05/11/20 07:30 Indirect Bilirubin 0.9 mg/dL 05/11/20 07:30 AST 21 units/L (5-40) 06/30/20 07:00 ALT 30 units/L (7-56) 06/30/20 07:00 Alkaline Phosphatase 81 units/L (35-129) 06/30/20 07:00 Lactate Dehydrogenase 705 units/L (91-180) H 05/20/20 08:16 Troponin T 0.015 ng/mL (0.00-0.029) 07/07/20 10:00 C-Reactive Protein 3.10 mg/dL (0.00-1.30) H 05/20/20 08:16 Total Protein 6.3 g/dL (6.3-8.2) 06/30/20 07:00 Albumin 2.8 g/dL (3.9-5) L 06/30/20 07:00 Albumin/Globulin Ratio 0.8 % 06/30/20 07:00 Triglycerides 452 mg/dL (2-149) H 06/30/20 07:00 Lipase 86 units/L (13-60) H 06/29/20 09:36 Procalcitonin 0.94 ng/mL (<0.15) 06/14/20 11:50 Arterial Blood Glucose 169 mg/dL (65-95) H 07/13/20 13:52 Arterial Blood Ionized Calcium 4.8 mg/dL (4.6-5.3) 07/13/20 13:52 Urine Color Fauzia (Yellow) 05/10/20 Unknown Urine Turbidity Clear (Clear) 05/10/20 Unknown Urine pH 5.0 (5.0-7.0) 05/10/20 Unknown Ur Specific [place] 1.019 (1.003-1.030) 05/10/20 Unknown Urine Protein 100 mg/dl mg/dL (Negative) 05/10/20 Unknown Urine Glucose (UA) Neg mg/dL (Negative) 05/10/20 Unknown Urine Ketones Neg mg/dL (Negative) 05/10/20 Unknown Urine Blood Lg (Negative) 05/10/20 Unknown Urine Nitrite Neg (Negative) 05/10/20 Unknown Urine Bilirubin Neg (Negative) 05/10/20 Unknown Urine Urobilinogen 2.0 mg/dL (<2.0) 05/10/20 Unknown Ur Leukocyte Esterase Neg (Negative) 05/10/20 Unknown Urine WBC (Auto) 11.0 /HPF (0.0-6.0) H 05/10/20 Unknown Urine RBC (Auto) 2.0 /HPF (0.0-6.0) 05/10/20 Unknown U Epithel Cells (Auto) 1.0 /HPF (0-13.0) 05/10/20 Unknown Urine Bacteria (Auto) 1+ /HPF (Negative) 05/10/20 Unknown Urine Mucus Few /HPF 05/10/20 Unknown Plasma/Serum Alcohol < 0.01 % (0-0.07) 05/09/20 14:20 Coronavirus (PCR) Negative (Negative) 06/30/20 10:28 Hep B Core Total Ab Nonreactive (Nonreactive) 07/09/20 Unknown SARS-CoV-2 IgG Ab Reactive (NonReactive) A 05/11/20 07:30 Blood Type B POSITIVE 06/21/20 14:18 Antibody Screen Negative 06/21/20 14:18 Crossmatch See Detail 06/21/20 14:18 Microbiology: Microbiology 07/13/20 Unknown Peripheral/Venous Blood Culture - Preliminary Pseudomonas Species 07/13/20 Unknown Peripheral/Venous Blood Culture - Preliminary Pseudomonas Species - Diagnostic Impressions Diagnostic Impressions: Echocardiogram 05/20/20 13:02 Transthoracic Echocardiogram Indication: CHF BP: 97/73 Conclusions *The study quality is technically very difficult and limited. *The left ventricular chamber size, wall thickness and systolic function are within normal limits. There are no wall motion abnormalities observed. Ejection fraction is normal. *The estimated ejection fraction is 60-65%. *The pericardium appears normal. Findings Procedure Info: The study quality is technically difficult. Left Ventricle: The left ventricular chamber size, wall thickness and systolic function are within normal limits. There are no wall motion abnormalities observed. Ejection fraction is normal. The estimated ejection fraction is 60-65%. Abnormal left ventricular diastolic filling is observed, consistent with impaired relaxation. Left Atrium: The left atrium is normal in size with no visual thrombus identified. Right Ventricle: The right ventricle is not well visualized. Right Atrium: The right atrium is not well visualized. Aortic Valve: The aortic valve is trileaflet. The leaflets are thin with normal excursion. There is no aortic stenosis or regurgitation present. Mitral Valve: The mitral valve appears normal in structure and function. Tricuspid Valve: The tricuspid valve appears normal in structure and function. Unable to estimate the right ventricular systolic pressure. Pulmonic Valve: The pulmonic valve is not well visualized. There is no evidence of pulmonic regurgitation. There is no pulmonic stenosis. Pericardium: The pericardium appears normal. Pulmonary Artery: The main pulmonary artery is not well visualized. Venous: The inferior vena cava appears normal in size. Measurements Chambers 2D Name Value Normal Range IVSd (2D) 0.83 cm (0.6 - 1.1) LVPWd (2D) 0.83 cm (0.6 - 1.1) LVIDd (2D) 3.88 cm (3.7 - 5.6) LVIDs (2D) 2.46 cm (2 - 3.8) LV FS (2D) 36.52 % - EF Teichholz (2D) 66.97 % - Ao root diameter (2D) 3.47 cm (2 - 3.7) Volumes/Mass Name Value Normal Range LA ESV SP 4CH (A/L) 22.4 ml - LA ESV SP 2CH (A/L) 22.89 ml - LA ESV BP (A/L) 23.06 ml - LA ESV SP 4CH (MOD) 21.09 ml - LA ESV SP 2CH (MOD) 22.44 ml - Diastolic/Systolic Function Name Value Normal Range MV E-wave Vmax 0.48 m/sec - MV deceleration time 156.3 msec - MV A-wave Vmax 0.59 m/sec - MV E:A ratio 0.81 ratio - Aortic Valve Name Value Normal Range AV Vmax 0.97 m/sec - AV VTI 14.49 cm - AV peak gradient 3.73 mmHg - AV mean gradient 1.89 mmHg - LVOT diameter 2.09 cm - LVOT Vmax 0.72 m/sec - LVOT VTI 10.21 cm - LVOT peak gradient 2.05 mmHg - LVOT mean gradient 1.03 mmHg - SV LVOT 35.17 ml - INNA (continuity Vmax) 2.55 cm2 - INNA (continuity VTI) 2.43 cm2 - Tricuspid Valve Name Value Normal Range TV E-wave Vmax 0.37 m/sec - Pulmonic Valve/Qp:Qs Name Value Normal Range PV Vmax 0.72 m/sec - PV peak gradient 2.06 mmHg - RVOT Vmax 0.85 m/sec - RVOT VTI 9.89 cm - RVOT peak gradient 2.9 mmHg - PV acceleration time 72.31 msec - Cantor/IV: Voiding Method Condom Catheter IV Catheter Type [Right Upper PICC Line arm] IV Catheter Type [Right CVL Internal Jugular] IV Catheter Type [Right Peripheral IV Forearm] IV Catheter Type [Left Forearm Peripheral IV ] IV Catheter Type [Left Wrist] INT / Saline Lock IV Catheter Type [Right Hand] INT / Saline Lock IV Catheter Type [Left Hand] INT / Saline Lock IV Catheter Type [Left Peripheral IV Antecubital] Active Medications - Current Medications Current Medications: Generic Name Dose Route Start Last Admin Trade Name Freq PRN Reason Stop Dose Admin Alprazolam 0.25 mg 05/20/20 17:53 07/08/20 06:24 Alprazolam 0.25 Mg Tab PO 0.25 mg Q8H PRN Administration Anxiety Lipase/Protease/Amylase 1 each 05/22/20 13:01 Lipase 10,500/Protease 25,000/Amylase 43,750 (Units) Dr Newell FEEDTUBE PRN PRN For Clogged Feeding Tube Bisacodyl 10 mg 07/14/20 11:00 Bisacodyl 10 Mg Rect Supp NM BID PRN Laxative Effect Docusate Sodium 100 mg 05/28/20 14:00 07/15/20 09:25 Docusate Sodium 100 Mg/10 Ml Oral Liqd PO 100 mg BID DESIRE Administration Enoxaparin Sodium 80 mg 07/07/20 23:00 07/15/20 09:24 Enoxaparin 80 Mg/0.8 Ml Inj SUB-Q 80 mg Q12HR DESIRE Administration Enoxaparin Sodium 30 mg 07/07/20 23:00 07/15/20 09:25 Enoxaparin 30 Mg/0.3 Ml Inj SUB-Q 30 mg Q12HR DESIRE Administration Folic Acid 1 mg 05/09/20 15:36 07/15/20 09:26 Folic Acid 1 Mg Tab PO 1 mg QDAY DESIRE Administration Hydrophilic Ointment 1 applic 05/21/20 20:33 Lip Therapy Vaseline TP Q2HR PRN Dry Lips Cefepime HCl 2 gm in 100 mls @ 200 mls/hr 07/14/20 21:00 07/15/20 04:00 Cefepime/Ns 2 Gm/100 Ml IV 200 mls/hr Q8H DESIRE Administration Protocol Insulin Human Lispro 0 unit 05/29/20 14:00 07/15/20 12:45 Insulin Lispro 100 Unit/Ml Vial 3 Ml SUB-Q Not Given Q6H [facility] Protocol Lansoprazole 30 mg 06/28/20 10:00 07/15/20 09:26 Lansoprazole 30 Mg Solutab FEEDTUBE 30 mg QDAY DESIRE Administration Lorazepam 1 mg 07/04/20 01:10 07/12/20 22:07 Lorazepam 2 Mg/Ml Vial IV 1 mg Q1HR PRN Administration agitation Methylprednisolone Sodium Succinate 20 mg 07/15/20 10:00 07/15/20 09:25 Methylprednisolone Sod Succinate 40 Mg/1 Ml Inj IV 20 mg Q24HR DESIRE Administration Metoprolol Tartrate 5 mg 07/02/20 17:17 07/08/20 14:38 Metoprolol Tartrate 5 Mg/5 Ml Inj IV 5 mg Q6HR PRN Administration Tachyarrhythmias Midodrine 10 mg 06/30/20 16:00 07/15/20 09:26 Midodrine 5 Mg Tab PO 10 mg TID@0800,1200,1600 DESIRE Administration Multi-Ingred Cream/Lotion/Oil/Oint 1 applic 05/21/20 20:33 Mineral Oil/Petrolatum, White Ophth Oint 3.5 Gm OU Q4HR PRN Dry Eye(s) Phenobarbital 32.4 mg 07/04/20 22:00 07/15/20 09:26 Phenobarbital 32.4 Mg Tab PO 32.4 mg BID DESIRE Administration Potassium Chloride 40 meq 07/15/20 10:00 07/15/20 09:37 Potassium Chloride 20 Meq Packet FEEDTUBE 07/15/20 14:01 40 meq Q4H DESIRE Administration Quetiapine Fumarate 100 mg 07/02/20 23:15 07/15/20 09:26 Quetiapine 100 Mg Tab PO 100 mg TID DESIRE Administration Quetiapine Fumarate 200 mg 07/02/20 23:00 07/15/20 09:26 Quetiapine 200 Mg Tab PO 200 mg TID DESIRE Administration Senna 17.2 mg 07/14/20 11:00 Sennosides 8.6 Mg Tab PO BID PRN Laxative Effect Simple Syrup 15 ml 05/22/20 13:01 07/15/20 05:35 Simple Syrup 15 Ml FEEDTUBE 15 ml PRN PRN Administration Hypoglycemia Simple Syrup 30 ml 05/22/20 13:01 Simple Syrup 15 Ml FEEDTUBE PRN PRN Hypoglycemia Sodium Bicarbonate 325 mg 05/22/20 13:01 Sodium Bicarbonate 325 Mg Tab FEEDTUBE PRN PRN For Clogged Feeding Tube Sodium Chloride 10 ml 05/09/20 22:00 07/15/20 09:26 Sodium Chloride 0.9% 10 Ml Flush Syringe IV 10 ml BID DESIRE Administration Nutrition/Malnutrition Assess - Dietary Evaluation Nutrition/Malnutrition Findings: Nutrition Notes Start: 05/17/20 14:10 Freq: Status: Active Protocol: Document 07/14/20 14:36 CW (Rec: 07/14/20 15:17 CW [email or web address]) Co-Sign 07/14/20 14:36 NHALL Nutrition Notes Initial or Follow up Reassessment Current Diagnosis Acute Kidney Injury,Decubitus( Pressure Ulcer),Sepsis, Respiratory Failure Other Pertinent Diagnosis Bilat pneu, COVID-19 (+), EtOH dependence Current Diet Vital HP at 65 ml/hr (goal rate) Labs/Tests K 2.7 BG 110 Pertinent Medications KCl Solumedrol Height 6 ft Weight 107.5 kg [place] Body Weight (kg) 80.90 BMI 32.1 Weight Status Obese Subjective/Other Information FU for TF tolerance. Pt has been extubated and TF stopped. Per RN, unsure when pt TF will be restarted. Percent of energy/protein needs met: 0%/0% Burn Absent Trauma Absent GI Symptoms None Current % PO Negligible Minimum of two criteria No physical signs of malnutrition #2 Nutrition Diagnosis Increased nutrient needs ( specify in comment below) Comments: protein Etiology wound healing As Evidenced by Signs and Symptoms stage II scarum pressure ulcer #1 Nutrition Diagnosis Inadequate oral intake Diagnosis Progress(for reassessment Continues documentation) Is patient on ventilator? No Is Patient Ambulatory and/or Out of Bed No REE-([facility]-confined to bed) 2365.212 Kcal/Kg value to use for calculation 16 Approximate Energy Requirements Using 1720 kcal/Kg Calculation Used for Recommendations Kcal/kg Additional Notes Pro needs >2g/kg IBW (162g/day ) Fluid needs 1ml/kcal Nutrition Intervention Change Diet Order: Restart TF when medically feasible Nutrition Support: Vital HP at 65ml/hr with 50ml water flush q4h. Kcal 1,560 Protein (gm) 136 Fluid (mL) 1,304 Goal #1 Restart TF Goal #2 TF (at goal rate) to meet at least 75% energy and pro needs Anticipated Discharge Needs: Unable to determine at this time Follow-Up By: 07/16/20 Additional Comments FU for TF start/tolerance
--- NOTE | 2020-07-15 13:06 | Progress Note ---
Assessment and Plan Cultures: Blood culture 04/28/2020 no growth today SARS CoV2 PCR positive Sputum and urine culture with no significant growth Blood culture 07/13/2020 symptoms Assessment: 50 years old male with history of alcohol dependence and obesity admitted on 05/09/2020 due to 5-day history of generalized malaise, fatigue, body aches, dyspnea exertion, cough and shortness of breath, tested positive for COVID-19 2 days before admission: #Pseudomonas bacteremia: Awaiting ID and DOLLY. Currently on cefepime, fevers have resolved since sedation of antibiotics. Continue pending results. Possibly from lungs? #Severe sepsis: likely due to bilateral pneumonia from COVID. #Severe COVID pneumonia: Chest x-ray with bilateral patchy infiltrates. SARS-CoV-2 PCR positive. Inflammatory markers markedly elevated, D-dimer 10,000, ferritin 38,000. Noted elevated procalcitonin likely due to elevated creatinine, however treated for bacterial component given severe sepsis. SARS CoV-2 IgG positive patient is NOT a candidate for COVID convalescent plasma. Completed remdesivir. #Acute hypoxemic respiratory failure: intubated on 05/22/2020. Extubated 07/13/2020 Recommendations: -Continue cefepime 2 g every 8 hours -Obtain procalcitonin with a.m. labs -Continue anticoagulation per System Protocol based on d-dimer G. Joelle Buchanan MD [facility] ([facility] O: [phone] F: [phone] Subjective Date of service: 07/15/20 Principal diagnosis: Ac hypoxemic resp failure; COVID-19; Severe Sepsis; Shaggy PNA; Alcohol Abuse Interval history: Reconsulted due to a fever to 102.1 on 07/13/2020. Afebrile since then. Now on cefepime. White count 21.3, it has been persistently elevated and fluctuating. Blood cultures now with Pseudomonas. On nasal cannula. Imaging personally reviewed: CXR: tiny right PTX, bilteral airspace disease. Objective - Exam Narrative Exam: Physical Exam: Constitutional: Alert, cooperative. No acute distress. On nasal cannula. Head, Ears, Nose: Normocephalic, atraumatic. Eyes: Conjunctivae/corneas clear. No icterus. No ptosis. Neck: Supple, no meningeal signs Oral: dentition fair, no thrush Cardiovascular: S1, S2 normal. Respiratory: Good air entry, clear to auscultation bilaterally GI: Soft, non-tender; bowel sounds normal. No peritoneal signs. Musculoskeletal: No pedal edema, no cyanosis. Skin: No rash or abscess Hem/Lymphatic: No palpable cervical or supraclavicular nodes. Psych: Mood ok. Affect normal Neurological: Awake, alert, oriented. No gross abnormality - Constitutional Vitals: Vital Signs Temp Pulse Resp BP Pulse Ox 99.1 F 124 H 22 113/59 100 07/15/20 08:00 07/15/20 11:00 07/15/20 11:00 07/15/20 11:00 07/15/20 11:00 Temperature -Last 24 Hours Temperature 99.1 F Temperature 98.6 F Temperature 99.0 F Temperature 99.5 F Temperature 98.6 F - Labs CBC & Chem 7: 07/13/20 08:31 07/15/20 05:31 Labs: Abnormal lab results 07/14/20 07/15/20 07/15/20 Range/Units 17:09 05:27 05:31 Potassium 3.2 L (3.6-5.0) mmol/L Chloride 91.2 L (98-107) mmol/L Carbon Dioxide 33 H (22-30) mmol/L Creatinine 0.3 L (0.8-1.3) mg/dL Glucose 139 H (75-100) mg/dL POC Glucose 152 H 61 L (70-105) mg/dL 07/15/20 Range/Units 11:49 Potassium (3.6-5.0) mmol/L Chloride (98-107) mmol/L Carbon Dioxide (22-30) mmol/L Creatinine (0.8-1.3) mg/dL Glucose (75-100) mg/dL POC Glucose 148 H (70-105) mg/dL
--- NOTE | 2020-07-15 14:42 | Progress Note ---
Assessment and Plan Acute hypoxemic respiratory failure due to COVID-19 Severe Sepsis Bilateral pneumonia Acute kidney injury (SEN) with acute tubular necrosis (ATN) Alcohol dependence Elevated liver function tests - Psychiatry consult placed for delirium - chest tube removal per surgeon - continue BIPAP scheduled qhs with prn daytime use - continue [employer] evaluation - continue care as below otherwise; - wean Levophed for target MAP > 65 mmHg - continue to wean supplemental oxygen for target O2 sat's > 92% acutely - continue Seroquel at 300 mg po tid - continue midodrine re: hypotension - keep peep at 8 - continue bid protonix - continue bowel regimen - metoprolol 5 mg IV q6h prn pulse > 130/min - aspiration precautions - continue bronchodilators with pulmonary hygiene per RT - accuchecks with glycemic control per SSI (While critically ill target blood glucose of 140-180 mg/dL; avoid hypoglycemia) - continue enteral nutritional support at goal rate as tolerated - repeat COVID-19 testing is negative X 2 - continue Zinc & Vit C supplementaion - wean systemic steroids for Asthma / severe COVID infection - continue empiric full dose anticoagulation re: elevated d-dimers / hypercoagulable state - NOT a candidate for COVID convalescent plasma - completed remdesivir dosing (total 5 days) - empiric AB's coverage per ID rec's - avoid nephrotoxins, renally dose all medications - continue to avoid benzodiazepine's, reduce the possibility of delirium - continue wound care per RN / WCN - prn analgesia per CPOT score - Maintenance of sleep-wake cycle, avoid delirium - continue to avoid benzodiazepine's, reduce the possibility of delirium - aspiration precautions - G.I. & VTE prophylaxis - PT/OT/ROM exercises - continue mobility protocols for pressure ulcer prophylaxis - Monitor hemodynamics closely - continue other care per attending / other consultants - discharge planning ongoing concurrently .... Re-evaluate in am & prn CONDITION: CRITICAL PROGNOSIS: GUARDED CODE STATUS: FULL CODE The high probability of a clinically significant, sudden or life-threatening deterioration of the [respiratory, cardiovascular, hematologic & neurologic] system(s) required my full and direct attention, intervention and personal tea gement. The aggregate critical care time was [34] minutes without overlap. Time includes spent on; [x] Data Review and interpretation [x] Patient assessment and monitoring of vital signs [x] Documentation [x] Medication orders and management Subjective Date of service: 07/15/20 Principal diagnosis: Ac hypoxemic resp failure; COVID-19; Severe Sepsis; Shaggy PNA; Alcohol Abuse Interval history: Patient is seen today for: Acute hypoxemic respiratory failure due to COVID-19; Severe Sepsis; Bilateral pneumonia; Alcohol dependence; Elevated liver function tests Seen and examined at bedside; 24hour events reviewed; nursing and respiratory care staff consulted; no adverse overnight events reported to me; resting in bed; delirious; believes he went home and came back yesterday; asking to sign out AMA; does not understand he is on supplemental oxygen; also recurrent PTX noted with chest tube clamping and chest tube remains in; No N/V/F/C and still very weak Objective Vital Signs - 12hr 07/15/20 07/15/20 07/15/20 03:00 03:30 04:00 Temperature 98.6 F Pulse Rate 120 H 120 H 119 H Pulse Rate [ 123 H From Monitor] Respiratory 27 H 25 H 25 H Rate Blood Pressure 141/75 146/88 152/81 O2 Sat by Pulse 100 100 100 Oximetry 07/15/20 07/15/20 07/15/20 04:30 05:00 05:30 Temperature Pulse Rate 120 H 118 H 116 H Pulse Rate [ From Monitor] Respiratory 23 21 22 Rate Blood Pressure 152/81 137/82 148/81 O2 Sat by Pulse 100 100 100 Oximetry 07/15/20 07/15/20 07/15/20 06:00 06:30 07:00 Temperature Pulse Rate 118 H 117 H 117 H Pulse Rate [ From Monitor] Respiratory 23 25 H 19 Rate Blood Pressure 145/86 133/71 130/86 O2 Sat by Pulse 100 100 100 Oximetry 07/15/20 07/15/20 07/15/20 07:30 08:00 08:19 Temperature 99.1 F Pulse Rate 116 H 117 H Pulse Rate [ 116 H From Monitor] Respiratory 22 12 Rate Blood Pressure 125/80 131/81 O2 Sat by Pulse 100 100 100 Oximetry 07/15/20 07/15/20 07/15/20 08:30 09:00 09:30 Temperature Pulse Rate 120 H 115 H 114 H Pulse Rate [ From Monitor] Respiratory 22 27 H 24 Rate Blood Pressure 130/76 128/81 130/78 O2 Sat by Pulse 93 100 100 Oximetry 07/15/20 07/15/2007/15/21 10:00 10:30 11:00 Temperature Pulse Rate 127 H 132 H 124 H Pulse Rate [ From Monitor] Respiratory 24 22 22 Rate Blood Pressure 127/71 107/63 113/59 O2 Sat by Pulse 100 100 100 Oximetry 07/15/20 12:00 Temperature 98.4 F Pulse Rate Pulse Rate [ From Monitor] Respiratory Rate Blood Pressure O2 Sat by Pulse Oximetry Constitutional: appears uncomfortable, other (middle aged obese male with mildly increased respiratory effort at rest ) Eyes: non-icteric ENT: oropharynx moist, other (extubated) Neck: supple, no JVD Effort: mildly labored Ascultation: Bilateral: diminished breath sounds, rhonchi (scant), other (right chest tube) Percussion: Bilateral: not dull Cardiovascular: regular rate and rhythm, other (No R/M) Gastrointestinal: normoactive bowel sounds, soft, non-tender, non-distended (protuberant), other (distended and firm) Integumentary: normal Extremities: no cyanosis, no edema, pulses normal, no ischemia or petechiae Neurologic: non-focal exam (non focal grossly; weak), pupils equal and round, CN II-XII normal, motor strength normal and (very weak ) Psychiatric: mood appropriate, affect normal CBC and BMP: 07/13/20 08:31 07/15/20 05:31 ABG, PT/INR, D-dimer: ABG ABG pH 7.477 (7.320-7.450) H 07/13/20 13:52 POC ABG pCO2 54.4 mmHg (32.0-48.0) H 07/13/20 13:52 ABG pCO2 53.1 mm Hg 07/08/20 Unknown POC ABG pO2 126.8 mmHg (83-108) H 07/13/20 13:52 ABG pO2 75.3 mm Hg (80.0-90.0) L 07/08/20 Unknown POC ABG HCO3 39.3 07/13/20 13:52 ABG O2 Saturation 96.5 % (95.0-99.0) 07/08/20 Unknown PT/INR, D-dimer PT 11.8 Sec. (12.2-14.9) L 06/22/20 14:29 INR 0.88 (0.87-1.13) 06/22/20 14:29 D-Dimer 1887.82 ng/mlDDU (0-234) H 05/20/20 08:16 Abnormal lab findings: Abnormal Labs 05/09/20 05/09/20 05/09/20 12:59 12:59 12:59 WBC 11.8 H RBC Hgb Hct MCV 96 H MCH 34 H MCHC 35 H RDW Lymph % (Auto) 6.9 L [place] % (Auto) Lymph # (Auto) 0.8 L [place] # (Auto) Baso # (Auto) Seg Neutrophils % 87.5 H Seg Neuts % (Manual) Lymphocytes % (Manual) Nucleated RBC % Seg Neutrophils # 10.3 H Seg Neutrophils # Man Lymphocytes # (Manual) Monocytes # (Manual) Eosinophils # (Manual) PT INR APTT D-Dimer Heparin Anti-Xa Level ABG pH POC ABG pCO2 POC ABG pO2 ABG pO2 ABG HCO3 ABG O2 Saturation ABG Base Excess ABG Hemoglobin ABG Oxyhemoglobin ABG Sodium ABG Potassium ABG Chloride ABG Glucose Oxyhemoglobin Carboxyhemoglobin Sodium 130 L Potassium 3.5 L Chloride 86.4 L Carbon Dioxide BUN 33 H Creatinine 2.3 H Glucose 156 H POC Glucose Lactic Acid Calcium Magnesium Ferritin Total Bilirubin 3.40 H Direct Bilirubin 1.7 H AST 385 H ALT 134 H Alkaline Phosphatase Lactate Dehydrogenase C-Reactive Protein Total Protein Albumin 3.0 L Triglycerides Lipase Arterial Blood Glucose Arterial Blood Ionized Calcium Urine WBC (Auto) Coronavirus (PCR) SARS-CoV-2 IgG Ab Crossmatch 05/09/20 05/09/20 05/09/20 12:59 12:59 12:59 WBC RBC Hgb Hct MCV MCH MCHC RDW Lymph % (Auto) [place] % (Auto) Lymph # (Auto) [place] # (Auto) Baso # (Auto) Seg Neutrophils % Seg Neuts % (Manual) Lymphocytes % (Manual) Nucleated RBC % Seg Neutrophils # Seg Neutrophils # Man Lymphocytes # (Manual) Monocytes # (Manual) Eosinophils # (Manual) PT INR APTT D-Dimer 3242.51 H Heparin Anti-Xa Level ABG pH POC ABG pCO2 POC ABG pO2 ABG pO2 ABG HCO3 ABG O2 Saturation ABG Base Excess ABG Hemoglobin ABG Oxyhemoglobin ABG Sodium ABG Potassium ABG Chloride ABG Glucose Oxyhemoglobin Carboxyhemoglobin Sodium Potassium Chloride Carbon Dioxide BUN Creatinine Glucose 158 H POC Glucose Lactic Acid 3.50 H* Calcium Magnesium Ferritin Total Bilirubin Direct Bilirubin AST ALT Alkaline Phosphatase Lactate Dehydrogenase 2166 H C-Reactive Protein 39.00 H Total Protein Albumin Triglycerides Lipase Arterial Blood Glucose Arterial Blood Ionized Calcium Urine WBC (Auto) Coronavirus (PCR) SARS-CoV-2 IgG Ab Crossmatch 05/09/20 05/09/20 05/09/20 12:59 14:20 14:20 WBC RBC Hgb Hct MCV MCH MCHC RDW Lymph % (Auto) [place] % (Auto) Lymph # (Auto) [place] # (Auto) Baso # (Auto) Seg Neutrophils % Seg Neuts % (Manual) Lymphocytes % (Manual) Nucleated RBC % Seg Neutrophils # Seg Neutrophils # Man Lymphocytes # (Manual) Monocytes # (Manual) Eosinophils # (Manual) PT INR APTT D-Dimer 2861.78 H Heparin Anti-Xa Level ABG pH POC ABG pCO2 POC ABG pO2 ABG pO2 ABG HCO3 ABG O2 Saturation ABG Base Excess ABG Hemoglobin ABG Oxyhemoglobin ABG Sodium ABG Potassium ABG Chloride ABG Glucose Oxyhemoglobin Carboxyhemoglobin Sodium Potassium Chloride Carbon Dioxide BUN Creatinine Glucose POC Glucose Lactic Acid 2.20 H* Calcium Magnesium Ferritin 43459.0 H Total Bilirubin Direct Bilirubin AST ALT Alkaline Phosphatase Lactate Dehydrogenase C-Reactive Protein Total Protein Albumin Triglycerides Lipase Arterial Blood Glucose Arterial Blood Ionized Calcium Urine WBC (Auto) Coronavirus (PCR) SARS-CoV-2 IgG Ab Crossmatch 05/09/20 05/09/20 05/09/20 14:20 14:20 15:56 WBC RBC Hgb Hct MCV MCH MCHC RDW Lymph % (Auto) [place] % (Auto) Lymph # (Auto) [place] # (Auto) Baso # (Auto) Seg Neutrophils % Seg Neuts % (Manual) Lymphocytes % (Manual) Nucleated RBC % Seg Neutrophils # Seg Neutrophils # Man Lymphocytes # (Manual) Monocytes # (Manual) Eosinophils # (Manual) PT INR APTT D-Dimer Heparin Anti-Xa Level ABG pH POC ABG pCO2 POC ABG pO2 57.3 L ABG pO2 ABG HCO3 ABG O2 Saturation ABG Base Excess ABG Hemoglobin ABG Oxyhemoglobin 86.3 L ABG Sodium 129.9 L ABG Potassium ABG Chloride ABG Glucose 146 H Oxyhemoglobin Carboxyhemoglobin Sodium Potassium Chloride Carbon Dioxide BUN Creatinine Glucose 143 H POC Glucose Lactic Acid Calcium Magnesium Ferritin 99548.0 H Total Bilirubin Direct Bilirubin AST ALT Alkaline Phosphatase Lactate Dehydrogenase 1953 H C-Reactive Protein 33.50 H Total Protein Albumin Triglycerides Lipase Arterial Blood Glucose 146 H Arterial Blood Ionized Calcium 3.9 L Urine WBC (Auto) Coronavirus (PCR) SARS-CoV-2 IgG Ab Crossmatch 05/10/20 05/10/20 05/10/20 10:32 10:32 18:50 WBC 15.4 H RBC Hgb Hct MCV 97 H MCH 33 H MCHC RDW 13.1 L Lymph % (Auto) [place] % (Auto) Lymph # (Auto) [place] # (Auto) Baso # (Auto) Seg Neutrophils % Seg Neuts % (Manual) 89.0 H Lymphocytes % (Manual) 8.0 L Nucleated RBC % Seg Neutrophils # Seg Neutrophils # Man 13.7 H Lymphocytes # (Manual) Monocytes # (Manual) Eosinophils # (Manual) PT INR APTT D-Dimer Heparin Anti-Xa Level ABG pH POC ABG pCO2 POC ABG pO2 ABG pO2 ABG HCO3 ABG O2 Saturation ABG Base Excess ABG Hemoglobin ABG Oxyhemoglobin ABG Sodium ABG Potassium ABG Chloride ABG Glucose Oxyhemoglobin Carboxyhemoglobin Sodium 136 L Potassium Chloride 97.4 L Carbon Dioxide BUN 37 H Creatinine 1.7 H Glucose 209 H POC Glucose Lactic Acid Calcium Magnesium Ferritin > 2000.0 H Total Bilirubin Direct Bilirubin AST ALT Alkaline Phosphatase Lactate Dehydrogenase C-Reactive Protein Total Protein Albumin Triglycerides Lipase Arterial Blood Glucose Arterial Blood Ionized Calcium Urine WBC (Auto) Coronavirus (PCR) SARS-CoV-2 IgG Ab Crossmatch 05/10/20 05/10/20 05/10/20 18:50 19:00 Unknown WBC RBC Hgb Hct MCV MCH MCHC RDW Lymph % (Auto) [place] % (Auto) Lymph # (Auto) [place] # (Auto) Baso # (Auto) Seg Neutrophils % Seg Neuts % (Manual) Lymphocytes % (Manual) Nucleated RBC % Seg Neutrophils # Seg Neutrophils # Man Lymphocytes # (Manual) Monocytes # (Manual) Eosinophils # (Manual) PT INR APTT D-Dimer > 02610 H Heparin Anti-Xa Level ABG pH POC ABG pCO2 POC ABG pO2 ABG pO2 ABG HCO3 ABG O2 Saturation ABG Base Excess ABG Hemoglobin ABG Oxyhemoglobin ABG Sodium ABG Potassium ABG Chloride ABG Glucose Oxyhemoglobin Carboxyhemoglobin Sodium Potassium Chloride Carbon Dioxide BUN Creatinine Glucose POC Glucose Lactic Acid Calcium Magnesium Ferritin Total Bilirubin Direct Bilirubin AST ALT Alkaline Phosphatase Lactate Dehydrogenase 1879 H C-Reactive Protein 24.80 H Total Protein Albumin Triglycerides Lipase Arterial Blood Glucose Arterial Blood Ionized Calcium Urine WBC (Auto) 11.0 H Coronavirus (PCR) SARS-CoV-2 IgG Ab Crossmatch 05/10/20 05/11/20 05/11/20 Unknown 07:30 07:30 WBC RBC Hgb Hct MCV MCH MCHC RDW Lymph % (Auto) [place] % (Auto) Lymph # (Auto) [place] # (Auto) Baso # (Auto) Seg Neutrophils % Seg Neuts % (Manual) Lymphocytes % (Manual) Nucleated RBC % Seg Neutrophils # Seg Neutrophils # Man Lymphocytes # (Manual) Monocytes # (Manual) Eosinophils # (Manual) PT INR APTT D-Dimer > 2000 H Heparin Anti-Xa Level ABG pH POC ABG pCO2 POC ABG pO2 ABG pO2 ABG HCO3 ABG O2 Saturation ABG Base Excess ABG Hemoglobin ABG Oxyhemoglobin ABG Sodium ABG Potassium ABG Chloride ABG Glucose Oxyhemoglobin Carboxyhemoglobin Sodium Potassium Chloride 96.3 L Carbon Dioxide BUN 36 H Creatinine Glucose 161 H POC Glucose Lactic Acid Calcium 8.3 L Magnesium Ferritin Total Bilirubin 1.50 H Direct Bilirubin 0.6 H AST 178 H ALT 111 H Alkaline Phosphatase Lactate Dehydrogenase C-Reactive Protein Total Protein Albumin 3.0 L Triglycerides Lipase Arterial Blood Glucose Arterial Blood Ionized Calcium Urine WBC (Auto) Coronavirus (PCR) Positive A SARS-CoV-2 IgG Ab Crossmatch 05/11/20 05/11/20 05/11/20 07:30 07:30 07:30 WBC RBC Hgb Hct MCV MCH MCHC RDW Lymph % (Auto) [place] % (Auto) Lymph # (Auto) [place] # (Auto) Baso # (Auto) Seg Neutrophils % Seg Neuts % (Manual) Lymphocytes % (Manual) Nucleated RBC % Seg Neutrophils # Seg Neutrophils # Man Lymphocytes # (Manual) Monocytes # (Manual) Eosinophils # (Manual) PT INR APTT D-Dimer Heparin Anti-Xa Level ABG pH POC ABG pCO2 POC ABG pO2 ABG pO2 ABG HCO3 ABG O2 Saturation ABG Base Excess ABG Hemoglobin ABG Oxyhemoglobin ABG Sodium ABG Potassium ABG Chloride ABG Glucose Oxyhemoglobin Carboxyhemoglobin Sodium Potassium Chloride Carbon Dioxide BUN Creatinine Glucose POC Glucose Lactic Acid Calcium Magnesium Ferritin 14104.0 H Total Bilirubin Direct Bilirubin AST ALT Alkaline Phosphatase Lactate Dehydrogenase 1523 H C-Reactive Protein 12.90 H Total Protein Albumin Triglycerides Lipase Arterial Blood Glucose Arterial Blood Ionized Calcium Urine WBC (Auto) Coronavirus (PCR) SARS-CoV-2 IgG Ab Reactive A Crossmatch 05/13/20 05/13/20 05/15/20 05:20 05:20 08:15 WBC RBC Hgb Hct MCV MCH MCHC RDW Lymph % (Auto) [place] % (Auto) Lymph # (Auto) [place] # (Auto) Baso # (Auto) Seg Neutrophils % Seg Neuts % (Manual) Lymphocytes % (Manual) Nucleated RBC % Seg Neutrophils # Seg Neutrophils # Man Lymphocytes # (Manual) Monocytes # (Manual) Eosinophils # (Manual) PT INR APTT D-Dimer > 59504 H 5318.28 H Heparin Anti-Xa Level ABG pH POC ABG pCO2 POC ABG pO2 ABG pO2 ABG HCO3 ABG O2 Saturation ABG Base Excess ABG Hemoglobin ABG Oxyhemoglobin ABG Sodium ABG Potassium ABG Chloride ABG Glucose Oxyhemoglobin Carboxyhemoglobin Sodium Potassium Chloride Carbon Dioxide 32 H BUN 30 H Creatinine Glucose 156 H POC Glucose Lactic Acid Calcium Magnesium 2.60 H Ferritin Total Bilirubin 1.40 H Direct Bilirubin AST 121 H ALT 119 H Alkaline Phosphatase Lactate Dehydrogenase 957 H C-Reactive Protein 4.00 H Total Protein Albumin 3.0 L Triglycerides Lipase Arterial Blood Glucose Arterial Blood Ionized Calcium Urine WBC (Auto) Coronavirus (PCR) SARS-CoV-2 IgG Ab Crossmatch 05/15/20 05/15/20 05/15/20 08:15 08:15 08:15 WBC 12.4 H RBC Hgb Hct MCV 98 H MCH 33 H MCHC RDW Lymph % (Auto) 9.7 L [place] % (Auto) Lymph # (Auto) [place] # (Auto) Baso # (Auto) Seg Neutrophils % 86.8 H Seg Neuts % (Manual) Lymphocytes % (Manual) Nucleated RBC % Seg Neutrophils # 10.8 H Seg Neutrophils # Man Lymphocytes # (Manual) Monocytes # (Manual) Eosinophils # (Manual) PT INR APTT D-Dimer Heparin Anti-Xa Level ABG pH POC ABG pCO2 POC ABG pO2 ABG pO2 ABG HCO3 ABG O2 Saturation ABG Base Excess ABG Hemoglobin ABG Oxyhemoglobin ABG Sodium ABG Potassium ABG Chloride ABG Glucose Oxyhemoglobin Carboxyhemoglobin Sodium Potassium Chloride 94.8 L Carbon Dioxide 32 H BUN 22 H Creatinine Glucose 115 H POC Glucose Lactic Acid Calcium 8.3 L Magnesium Ferritin 2494.0 H Total Bilirubin Direct Bilirubin AST 73 H ALT 121 H Alkaline Phosphatase Lactate Dehydrogenase 835 H C-Reactive Protein 3.40 H Total Protein 6.1 L Albumin 3.0 L Triglycerides Lipase Arterial Blood Glucose Arterial Blood Ionized Calcium Urine WBC (Auto) Coronavirus (PCR) SARS-CoV-2 IgG Ab Crossmatch 05/17/20 05/17/20 05/17/20 05:50 05:50 05:50 WBC RBC Hgb Hct MCV MCH MCHC RDW Lymph % (Auto) [place] % (Auto) Lymph # (Auto) [place] # (Auto) Baso # (Auto) Seg Neutrophils % Seg Neuts % (Manual) Lymphocytes % (Manual) Nucleated RBC % Seg Neutrophils # Seg Neutrophils # Man Lymphocytes # (Manual) Monocytes # (Manual) Eosinophils # (Manual) PT INR APTT D-Dimer 2911.42 H Heparin Anti-Xa Level ABG pH POC ABG pCO2 POC ABG pO2 ABG pO2 ABG HCO3 ABG O2 Saturation ABG Base Excess ABG Hemoglobin ABG Oxyhemoglobin ABG Sodium ABG Potassium ABG Chloride ABG Glucose Oxyhemoglobin Carboxyhemoglobin Sodium 136 L Potassium Chloride 96.0 L Carbon Dioxide 34 H BUN 22 H Creatinine Glucose 140 H POC Glucose Lactic Acid Calcium Magnesium Ferritin 2082.0 H Total Bilirubin Direct Bilirubin AST ALT 75 H Alkaline Phosphatase Lactate Dehydrogenase 601 H C-Reactive Protein 2.70 H Total Protein Albumin 2.9 L Triglycerides Lipase Arterial Blood Glucose Arterial Blood Ionized Calcium Urine WBC (Auto) Coronavirus (PCR) SARS-CoV-2 IgG Ab Crossmatch 05/17/20 05/18/20 05/20/20 05:50 12:22 08:16 WBC RBC Hgb Hct MCV 98 H MCH 33 H MCHC RDW Lymph % (Auto) 8.0 L [place] % (Auto) Lymph # (Auto) 0.8 L [place] # (Auto) Baso # (Auto) Seg Neutrophils % 89.3 H Seg Neuts % (Manual) Lymphocytes % (Manual) Nucleated RBC % Seg Neutrophils # 8.8 H Seg Neutrophils # Man Lymphocytes # (Manual) Monocytes # (Manual) Eosinophils # (Manual) PT INR APTT D-Dimer 1887.82 H Heparin Anti-Xa Level ABG pH POC ABG pCO2 POC ABG pO2 ABG pO2 ABG HCO3 ABG O2 Saturation ABG Base Excess ABG Hemoglobin ABG Oxyhemoglobin ABG Sodium ABG Potassium ABG Chloride ABG Glucose Oxyhemoglobin Carboxyhemoglobin Sodium Potassium Chloride Carbon Dioxide BUN Creatinine Glucose POC Glucose 178 H Lactic Acid Calcium Magnesium Ferritin Total Bilirubin Direct Bilirubin AST ALT Alkaline Phosphatase Lactate Dehydrogenase C-Reactive Protein Total Protein Albumin Triglycerides Lipase Arterial Blood Glucose Arterial Blood Ionized Calcium Urine WBC (Auto) Coronavirus (PCR) SARS-CoV-2 IgG Ab Crossmatch 05/20/20 05/20/20 05/21/20 08:16 08:16 21:10 WBC RBC Hgb Hct MCV MCH MCHC RDW Lymph % (Auto) [place] % (Auto) Lymph # (Auto) [place] # (Auto) Baso # (Auto) Seg Neutrophils % Seg Neuts % (Manual) Lymphocytes % (Manual) Nucleated RBC % Seg Neutrophils # Seg Neutrophils # Man Lymphocytes # (Manual) Monocytes # (Manual) Eosinophils # (Manual) PT INR APTT D-Dimer Heparin Anti-Xa Level ABG pH 7.483 H POC ABG pCO2 POC ABG pO2 ABG pO2 50.0 L ABG HCO3 27.0 H ABG O2 Saturation 86.2 L ABG Base Excess 3.7 H ABG Hemoglobin ABG Oxyhemoglobin ABG Sodium ABG Potassium ABG Chloride ABG Glucose Oxyhemoglobin 84.2 L Carboxyhemoglobin Sodium Potassium Chloride Carbon Dioxide BUN Creatinine Glucose POC Glucose Lactic Acid Calcium Magnesium Ferritin 1960.0 H Total Bilirubin Direct Bilirubin AST ALT Alkaline Phosphatase Lactate Dehydrogenase 705 H C-Reactive Protein 3.10 H Total Protein Albumin Triglycerides Lipase Arterial Blood Glucose Arterial Blood Ionized Calcium Urine WBC (Auto) Coronavirus (PCR) SARS-CoV-2 IgG Ab Crossmatch 05/22/20 05/22/20 05/22/20 04:01 07:53 07:53 WBC 19.2 H RBC Hgb Hct MCV 98 H MCH 34 H MCHC RDW Lymph % (Auto) [place] % (Auto) Lymph # (Auto) [place] # (Auto) Baso # (Auto) Seg Neutrophils % Seg Neuts % (Manual) 96.0 H Lymphocytes % (Manual) 1.0 L Nucleated RBC % Seg Neutrophils # Seg Neutrophils # Man 18.4 H Lymphocytes # (Manual) 0.2 L Monocytes # (Manual) Eosinophils # (Manual) PT INR APTT D-Dimer Heparin Anti-Xa Level ABG pH POC ABG pCO2 53.8 H POC ABG pO2 125.5 H ABG pO2 ABG HCO3 ABG O2 Saturation ABG Base Excess ABG Hemoglobin ABG Oxyhemoglobin ABG Sodium 131.8 L ABG Potassium 4.8 H ABG Chloride 94.0 L ABG Glucose 163 H Oxyhemoglobin Carboxyhemoglobin Sodium 131 L Potassium Chloride 93.4 L Carbon Dioxide BUN 40 H Creatinine Glucose 176 H POC Glucose Lactic Acid Calcium Magnesium 2.70 H Ferritin Total Bilirubin 1.80 H Direct Bilirubin AST 45 H ALT 116 H Alkaline Phosphatase 181 H Lactate Dehydrogenase C-Reactive Protein Total Protein Albumin 2.6 L Triglycerides Lipase Arterial Blood Glucose 163 H Arterial Blood Ionized Calcium 4.5 L Urine WBC (Auto) Coronavirus (PCR) SARS-CoV-2 IgG Ab Crossmatch 05/23/20 05/24/20 05/24/20 04:17 03:07 04:08 WBC RBC Hgb Hct MCV MCH MCHC RDW Lymph % (Auto) [place] % (Auto) Lymph # (Auto) [place] # (Auto) Baso # (Auto) Seg Neutrophils % Seg Neuts % (Manual) Lymphocytes % (Manual) Nucleated RBC % Seg Neutrophils # Seg Neutrophils # Man Lymphocytes # (Manual) Monocytes # (Manual) Eosinophils # (Manual) PT INR APTT D-Dimer Heparin Anti-Xa Level ABG pH 7.328 L POC ABG pCO2 POC ABG pO2 ABG pO2 72.8 L 73.4 L ABG HCO3 31.0 H 34.0 H ABG O2 Saturation 93.5 L ABG Base Excess 3.5 H 7.7 H ABG Hemoglobin 13.3 L 12.1 L ABG Oxyhemoglobin ABG Sodium ABG Potassium ABG Chloride ABG Glucose Oxyhemoglobin 91.5 L 94.3 L Carboxyhemoglobin Sodium Potassium Chloride Carbon Dioxide BUN Creatinine Glucose POC Glucose 155 H Lactic Acid Calcium Magnesium Ferritin Total Bilirubin Direct Bilirubin AST ALT Alkaline Phosphatase Lactate Dehydrogenase C-Reactive Protein Total Protein Albumin Triglycerides Lipase Arterial Blood Glucose Arterial Blood Ionized Calcium Urine WBC (Auto) Coronavirus (PCR) SARS-CoV-2 IgG Ab Crossmatch 05/24/20 05/24/20 05/24/20 09:33 12:21 17:52 WBC RBC Hgb Hct MCV MCH MCHC RDW Lymph % (Auto) [place] % (Auto) Lymph # (Auto) [place] # (Auto) Baso # (Auto) Seg Neutrophils % Seg Neuts % (Manual) Lymphocytes % (Manual) Nucleated RBC % Seg Neutrophils # Seg Neutrophils # Man Lymphocytes # (Manual) Monocytes # (Manual) Eosinophils # (Manual) PT INR APTT D-Dimer Heparin Anti-Xa Level ABG pH POC ABG pCO2 POC ABG pO2 ABG pO2 ABG HCO3 ABG O2 Saturation ABG Base Excess ABG Hemoglobin ABG Oxyhemoglobin ABG Sodium ABG Potassium ABG Chloride ABG Glucose Oxyhemoglobin Carboxyhemoglobin Sodium Potassium Chloride Carbon Dioxide 34 H D BUN 28 H Creatinine 0.7 L Glucose 168 H POC Glucose 173 H 164 H Lactic Acid Calcium Magnesium Ferritin Total Bilirubin Direct Bilirubin AST ALT Alkaline Phosphatase Lactate Dehydrogenase C-Reactive Protein Total Protein Albumin Triglycerides Lipase Arterial Blood Glucose Arterial Blood Ionized Calcium Urine WBC (Auto) Coronavirus (PCR) SARS-CoV-2 IgG Ab Crossmatch 05/24/20 05/25/20 05/25/20 23:47 04:29 05:46 WBC RBC Hgb Hct MCV MCH MCHC RDW Lymph % (Auto) [place] % (Auto) Lymph # (Auto) [place] # (Auto) Baso # (Auto) Seg Neutrophils % Seg Neuts % (Manual) Lymphocytes % (Manual) Nucleated RBC % Seg Neutrophils # Seg Neutrophils # Man Lymphocytes # (Manual) Monocytes # (Manual) Eosinophils # (Manual) PT INR APTT D-Dimer Heparin Anti-Xa Level ABG pH POC ABG pCO2 68.6 H POC ABG pO2 ABG pO2 ABG HCO3 ABG O2 Saturation ABG Base Excess ABG Hemoglobin ABG Oxyhemoglobin ABG Sodium ABG Potassium 4.7 H ABG Chloride ABG Glucose 226 H Oxyhemoglobin Carboxyhemoglobin Sodium Potassium Chloride Carbon Dioxide BUN Creatinine Glucose POC Glucose 171 H 201 H Lactic Acid Calcium Magnesium Ferritin Total Bilirubin Direct Bilirubin AST ALT Alkaline Phosphatase Lactate Dehydrogenase C-Reactive Protein Total Protein Albumin Triglycerides Lipase Arterial Blood Glucose 226 H Arterial Blood Ionized Calcium Urine WBC (Auto) Coronavirus (PCR) SARS-CoV-2 IgG Ab Crossmatch 05/25/20 05/25/20 05/25/20 08:37 08:37 12:38 WBC 12.0 H RBC 3.64 L Hgb Hct MCV 99 H MCH 33 H MCHC RDW Lymph % (Auto) [place] % (Auto) Lymph # (Auto) [place] # (Auto) Baso # (Auto) Seg Neutrophils % Seg Neuts % (Manual) Lymphocytes % (Manual) Nucleated RBC % Seg Neutrophils # Seg Neutrophils # Man Lymphocytes # (Manual) Monocytes # (Manual) Eosinophils # (Manual) PT INR APTT D-Dimer Heparin Anti-Xa Level ABG pH POC ABG pCO2 POC ABG pO2 ABG pO2 ABG HCO3 ABG O2 Saturation ABG Base Excess ABG Hemoglobin ABG Oxyhemoglobin ABG Sodium ABG Potassium ABG Chloride ABG Glucose Oxyhemoglobin Carboxyhemoglobin Sodium Potassium Chloride 97.3 L Carbon Dioxide 35 H BUN 25 H Creatinine 0.7 L Glucose 191 H POC Glucose 182 H Lactic Acid Calcium Magnesium Ferritin Total Bilirubin Direct Bilirubin AST ALT Alkaline Phosphatase Lactate Dehydrogenase C-Reactive Protein Total Protein Albumin Triglycerides Lipase Arterial Blood Glucose Arterial Blood Ionized Calcium Urine WBC (Auto) Coronavirus (PCR) SARS-CoV-2 IgG Ab Crossmatch 05/25/20 05/26/20 05/26/20 18:16 00:06 04:50 WBC RBC Hgb Hct MCV MCH MCHC RDW Lymph % (Auto) [place] % (Auto) Lymph # (Auto) [place] # (Auto) Baso # (Auto) Seg Neutrophils % Seg Neuts % (Manual) Lymphocytes % (Manual) Nucleated RBC % Seg Neutrophils # Seg Neutrophils # Man Lymphocytes # (Manual) Monocytes # (Manual) Eosinophils # (Manual) PT INR APTT D-Dimer Heparin Anti-Xa Level ABG pH POC ABG pCO2 POC ABG pO2 ABG pO2 221.5 H ABG HCO3 40.4 H ABG O2 Saturation 99.3 H ABG Base Excess 12.8 H ABG Hemoglobin 10.4 L ABG Oxyhemoglobin ABG Sodium ABG Potassium ABG Chloride ABG Glucose Oxyhemoglobin Carboxyhemoglobin Sodium Potassium Chloride Carbon Dioxide BUN Creatinine Glucose POC Glucose 176 H 152 H Lactic Acid Calcium Magnesium Ferritin Total Bilirubin Direct Bilirubin AST ALT Alkaline Phosphatase Lactate Dehydrogenase C-Reactive Protein Total Protein Albumin Triglycerides Lipase Arterial Blood Glucose Arterial Blood Ionized Calcium Urine WBC (Auto) Coronavirus (PCR) SARS-CoV-2 IgG Ab Crossmatch 05/26/20 05/26/20 05/26/20 06:11 07:51 07:51 WBC 13.4 H RBC 3.64 L Hgb Hct MCV 98 H MCH 33 H MCHC RDW Lymph % (Auto) [place] % (Auto) Lymph # (Auto) [place] # (Auto) Baso # (Auto) Seg Neutrophils % Seg Neuts % (Manual) Lymphocytes % (Manual) Nucleated RBC % Seg Neutrophils # Seg Neutrophils # Man Lymphocytes # (Manual) Monocytes # (Manual) Eosinophils # (Manual) PT INR APTT D-Dimer Heparin Anti-Xa Level ABG pH POC ABG pCO2 POC ABG pO2 ABG pO2 ABG HCO3 ABG O2 Saturation ABG Base Excess ABG Hemoglobin ABG Oxyhemoglobin ABG Sodium ABG Potassium ABG Chloride ABG Glucose Oxyhemoglobin Carboxyhemoglobin Sodium Potassium Chloride 96.6 L Carbon Dioxide 39 H BUN 29 H Creatinine 0.7 L Glucose 174 H POC Glucose 165 H Lactic Acid Calcium Magnesium Ferritin Total Bilirubin Direct Bilirubin AST ALT Alkaline Phosphatase Lactate Dehydrogenase C-Reactive Protein Total Protein Albumin Triglycerides Lipase Arterial Blood Glucose Arterial Blood Ionized Calcium Urine WBC (Auto) Coronavirus (PCR) SARS-CoV-2 IgG Ab Crossmatch 05/26/20 05/27/20 05/27/20 23:23 03:43 05:29 WBC RBC Hgb Hct MCV MCH MCHC RDW Lymph % (Auto) [place] % (Auto) Lymph # (Auto) [place] # (Auto) Baso # (Auto) Seg Neutrophils % Seg Neuts % (Manual) Lymphocytes % (Manual) Nucleated RBC % Seg Neutrophils # Seg Neutrophils # Man Lymphocytes # (Manual) Monocytes # (Manual) Eosinophils # (Manual) PT INR APTT D-Dimer Heparin Anti-Xa Level ABG pH 7.480 H POC ABG pCO2 52.4 H POC ABG pO2 61.4 L ABG pO2 ABG HCO3 ABG O2 Saturation ABG Base Excess ABG Hemoglobin ABG Oxyhemoglobin ABG Sodium 134.9 L ABG Potassium ABG Chloride 95.0 L ABG Glucose 221 H Oxyhemoglobin Carboxyhemoglobin Sodium Potassium Chloride Carbon Dioxide BUN Creatinine Glucose POC Glucose 169 H 227 H Lactic Acid Calcium Magnesium Ferritin Total Bilirubin Direct Bilirubin AST ALT Alkaline Phosphatase Lactate Dehydrogenase C-Reactive Protein Total Protein Albumin Triglycerides Lipase Arterial Blood Glucose 221 H Arterial Blood Ionized Calcium 4.5 L Urine WBC (Auto) Coronavirus (PCR) SARS-CoV-2 IgG Ab Crossmatch 05/27/20 05/27/20 05/27/20 07:19 12:18 13:50 WBC RBC Hgb Hct MCV MCH MCHC RDW Lymph % (Auto) [place] % (Auto) Lymph # (Auto) [place] # (Auto) Baso # (Auto) Seg Neutrophils % Seg Neuts % (Manual) Lymphocytes % (Manual) Nucleated RBC % Seg Neutrophils # Seg Neutrophils # Man Lymphocytes # (Manual) Monocytes # (Manual) Eosinophils # (Manual) PT INR APTT D-Dimer Heparin Anti-Xa Level ABG pH POC ABG pCO2 POC ABG pO2 ABG pO2 ABG HCO3 ABG O2 Saturation ABG Base Excess ABG Hemoglobin ABG Oxyhemoglobin ABG Sodium ABG Potassium ABG Chloride ABG Glucose Oxyhemoglobin Carboxyhemoglobin Sodium Potassium Chloride Carbon Dioxide BUN Creatinine Glucose POC Glucose 114 H 148 H Lactic Acid Calcium Magnesium Ferritin Total Bilirubin Direct Bilirubin AST ALT Alkaline Phosphatase Lactate Dehydrogenase C-Reactive Protein Total Protein Albumin Triglycerides 247 H Lipase Arterial Blood Glucose Arterial Blood Ionized Calcium Urine WBC (Auto) Coronavirus (PCR) SARS-CoV-2 IgG Ab Crossmatch 05/28/20 05/28/20 05/28/20 00:13 04:16 05:22 WBC RBC Hgb Hct MCV MCH MCHC RDW Lymph % (Auto) [place] % (Auto) Lymph # (Auto) [place] # (Auto) Baso # (Auto) Seg Neutrophils % Seg Neuts % (Manual) Lymphocytes % (Manual) Nucleated RBC % Seg Neutrophils # Seg Neutrophils # Man Lymphocytes # (Manual) Monocytes # (Manual) Eosinophils # (Manual) PT INR APTT D-Dimer Heparin Anti-Xa Level ABG pH POC ABG pCO2 64.4 H POC ABG pO2 60.5 L ABG pO2 ABG HCO3 ABG O2 Saturation ABG Base Excess ABG Hemoglobin ABG Oxyhemoglobin ABG Sodium ABG Potassium ABG Chloride 95.0 L ABG Glucose 209 H Oxyhemoglobin Carboxyhemoglobin Sodium Potassium Chloride Carbon Dioxide BUN Creatinine Glucose POC Glucose 155 H 186 H Lactic Acid Calcium Magnesium Ferritin Total Bilirubin Direct Bilirubin AST ALT Alkaline Phosphatase Lactate Dehydrogenase C-Reactive Protein Total Protein Albumin Triglycerides Lipase Arterial Blood Glucose 209 H Arterial Blood Ionized Calcium Urine WBC (Auto) Coronavirus (PCR) SARS-CoV-2 IgG Ab Crossmatch 05/28/20 05/28/20 05/29/20 12:45 17:39 00:37 WBC RBC Hgb Hct MCV MCH MCHC RDW Lymph % (Auto) [place] % (Auto) Lymph # (Auto) [place] # (Auto) Baso # (Auto) Seg Neutrophils % Seg Neuts % (Manual) Lymphocytes % (Manual) Nucleated RBC % Seg Neutrophils # Seg Neutrophils # Man Lymphocytes # (Manual) Monocytes # (Manual) Eosinophils # (Manual) PT INR APTT D-Dimer Heparin Anti-Xa Level ABG pH POC ABG pCO2 POC ABG pO2 ABG pO2 ABG HCO3 ABG O2 Saturation ABG Base Excess ABG Hemoglobin ABG Oxyhemoglobin ABG Sodium ABG Potassium ABG Chloride ABG Glucose Oxyhemoglobin Carboxyhemoglobin Sodium Potassium Chloride Carbon Dioxide BUN Creatinine Glucose POC Glucose 143 H 164 H 221 H Lactic Acid Calcium Magnesium Ferritin Total Bilirubin Direct Bilirubin AST ALT Alkaline Phosphatase Lactate Dehydrogenase C-Reactive Protein Total Protein Albumin Triglycerides Lipase Arterial Blood Glucose Arterial Blood Ionized Calcium Urine WBC (Auto) Coronavirus (PCR) SARS-CoV-2 IgG Ab Crossmatch 05/29/20 05/29/20 05/29/20 04:15 05:33 12:34 WBC RBC Hgb Hct MCV MCH MCHC RDW Lymph % (Auto) [place] % (Auto) Lymph # (Auto) [place] # (Auto) Baso # (Auto) Seg Neutrophils % Seg Neuts % (Manual) Lymphocytes % (Manual) Nucleated RBC % Seg Neutrophils # Seg Neutrophils # Man Lymphocytes # (Manual) Monocytes # (Manual) Eosinophils # (Manual) PT INR APTT D-Dimer Heparin Anti-Xa Level ABG pH 7.463 H POC ABG pCO2 56.3 H POC ABG pO2 81.2 L ABG pO2 ABG HCO3 ABG O2 Saturation ABG Base Excess ABG Hemoglobin ABG Oxyhemoglobin ABG Sodium ABG Potassium ABG Chloride 96.0 L ABG Glucose 194 H Oxyhemoglobin Carboxyhemoglobin Sodium Potassium Chloride Carbon Dioxide BUN Creatinine Glucose POC Glucose 133 H 221 H Lactic Acid Calcium Magnesium Ferritin Total Bilirubin Direct Bilirubin AST ALT Alkaline Phosphatase Lactate Dehydrogenase C-Reactive Protein Total Protein Albumin Triglycerides Lipase Arterial Blood Glucose 194 H Arterial Blood Ionized Calcium 4.5 L Urine WBC (Auto) Coronavirus (PCR) SARS-CoV-2 IgG Ab Crossmatch 05/29/20 05/30/20 05/30/20 18:07 00:12 05:38 WBC RBC Hgb Hct MCV MCH MCHC RDW Lymph % (Auto) [place] % (Auto) Lymph # (Auto) [place] # (Auto) Baso # (Auto) Seg Neutrophils % Seg Neuts % (Manual) Lymphocytes % (Manual) Nucleated RBC % Seg Neutrophils # Seg Neutrophils # Man Lymphocytes # (Manual) Monocytes # (Manual) Eosinophils # (Manual) PT INR APTT D-Dimer Heparin Anti-Xa Level ABG pH POC ABG pCO2 POC ABG pO2 ABG pO2 ABG HCO3 ABG O2 Saturation ABG Base Excess ABG Hemoglobin ABG Oxyhemoglobin ABG Sodium ABG Potassium ABG Chloride ABG Glucose Oxyhemoglobin Carboxyhemoglobin Sodium Potassium Chloride Carbon Dioxide BUN Creatinine Glucose POC Glucose 162 H 190 H 208 H Lactic Acid Calcium Magnesium Ferritin Total Bilirubin Direct Bilirubin AST ALT Alkaline Phosphatase Lactate Dehydrogenase C-Reactive Protein Total Protein Albumin Triglycerides Lipase Arterial Blood Glucose Arterial Blood Ionized Calcium Urine WBC (Auto) Coronavirus (PCR) SARS-CoV-2 IgG Ab Crossmatch 05/30/20 05/30/20 05/30/20 09:30 11:35 11:54 WBC 12.4 H RBC 3.48 L Hgb 11.3 L Hct 34.6 L MCV 99 H MCH 33 H MCHC RDW Lymph % (Auto) [place] % (Auto) Lymph # (Auto) [place] # (Auto) Baso # (Auto) Seg Neutrophils % Seg Neuts % (Manual) Lymphocytes % (Manual) Nucleated RBC % Seg Neutrophils # Seg Neutrophils # Man Lymphocytes # (Manual) Monocytes # (Manual) Eosinophils # (Manual) PT INR APTT D-Dimer Heparin Anti-Xa Level ABG pH 7.455 H POC ABG pCO2 57.5 H POC ABG pO2 81.5 L ABG pO2 ABG HCO3 ABG O2 Saturation ABG Base Excess ABG Hemoglobin ABG Oxyhemoglobin ABG Sodium ABG Potassium ABG Chloride 96.0 L ABG Glucose 204 H Oxyhemoglobin Carboxyhemoglobin Sodium Potassium Chloride Carbon Dioxide BUN Creatinine Glucose POC Glucose 183 H Lactic Acid Calcium Magnesium Ferritin Total Bilirubin Direct Bilirubin AST ALT Alkaline Phosphatase Lactate Dehydrogenase C-Reactive Protein Total Protein Albumin Triglycerides Lipase Arterial Blood Glucose 204 H Arterial Blood Ionized Calcium Urine WBC (Auto) Coronavirus (PCR) SARS-CoV-2 IgG Ab Crossmatch 05/30/20 05/31/20 05/31/20 18:01 00:10 03:22 WBC RBC Hgb Hct MCV MCH MCHC RDW Lymph % (Auto) [place] % (Auto) Lymph # (Auto) [place] # (Auto) Baso # (Auto) Seg Neutrophils % Seg Neuts % (Manual) Lymphocytes % (Manual) Nucleated RBC % Seg Neutrophils # Seg Neutrophils # Man Lymphocytes # (Manual) Monocytes # (Manual) Eosinophils # (Manual) PT INR APTT D-Dimer Heparin Anti-Xa Level ABG pH POC ABG pCO2 60.4 H POC ABG pO2 71.5 L ABG pO2 ABG HCO3 ABG O2 Saturation ABG Base Excess ABG Hemoglobin ABG Oxyhemoglobin ABG Sodium ABG Potassium ABG Chloride 96.0 L ABG Glucose 169 H Oxyhemoglobin Carboxyhemoglobin Sodium Potassium Chloride Carbon Dioxide BUN Creatinine Glucose POC Glucose 184 H 135 H Lactic Acid Calcium Magnesium Ferritin Total Bilirubin Direct Bilirubin AST ALT Alkaline Phosphatase Lactate Dehydrogenase C-Reactive Protein Total Protein Albumin Triglycerides Lipase Arterial Blood Glucose 169 H Arterial Blood Ionized Calcium 4.5 L Urine WBC (Auto) Coronavirus (PCR) SARS-CoV-2 IgG Ab Crossmatch 05/31/20 05/31/20 05/31/20 05:24 11:18 14:41 WBC RBC Hgb Hct MCV MCH MCHC RDW Lymph % (Auto) [place] % (Auto) Lymph # (Auto) [place] # (Auto) Baso # (Auto) Seg Neutrophils % Seg Neuts % (Manual) Lymphocytes % (Manual) Nucleated RBC % Seg Neutrophils # Seg Neutrophils # Man Lymphocytes # (Manual) Monocytes # (Manual) Eosinophils # (Manual) PT INR APTT D-Dimer Heparin Anti-Xa Level ABG pH POC ABG pCO2 POC ABG pO2 ABG pO2 ABG HCO3 ABG O2 Saturation ABG Base Excess ABG Hemoglobin ABG Oxyhemoglobin ABG Sodium ABG Potassium ABG Chloride ABG Glucose Oxyhemoglobin Carboxyhemoglobin Sodium Potassium Chloride 96.8 L Carbon Dioxide 37 H BUN 31 H Creatinine 0.6 L Glucose 213 H POC Glucose 164 H 208 H Lactic Acid Calcium Magnesium Ferritin Total Bilirubin Direct Bilirubin AST ALT Alkaline Phosphatase Lactate Dehydrogenase C-Reactive Protein Total Protein Albumin Triglycerides Lipase Arterial Blood Glucose Arterial Blood Ionized Calcium Urine WBC (Auto) Coronavirus (PCR) SARS-CoV-2 IgG Ab Crossmatch 05/31/20 05/31/20 06/01/20 17:37 23:47 03:48 WBC RBC Hgb Hct MCV MCH MCHC RDW Lymph % (Auto) [place] % (Auto) Lymph # (Auto) [place] # (Auto) Baso # (Auto) Seg Neutrophils % Seg Neuts % (Manual) Lymphocytes % (Manual) Nucleated RBC % Seg Neutrophils # Seg Neutrophils # Man Lymphocytes # (Manual) Monocytes # (Manual) Eosinophils # (Manual) PT INR APTT D-Dimer Heparin Anti-Xa Level ABG pH POC ABG pCO2 59.7 H POC ABG pO2 73.9 L ABG pO2 ABG HCO3 ABG O2 Saturation ABG Base Excess ABG Hemoglobin ABG Oxyhemoglobin ABG Sodium ABG Potassium ABG Chloride 95.0 L ABG Glucose 256 H Oxyhemoglobin Carboxyhemoglobin Sodium Potassium Chloride Carbon Dioxide BUN Creatinine Glucose POC Glucose 168 H 178 H Lactic Acid Calcium Magnesium Ferritin Total Bilirubin Direct Bilirubin AST ALT Alkaline Phosphatase Lactate Dehydrogenase C-Reactive Protein Total Protein Albumin Triglycerides Lipase Arterial Blood Glucose 256 H Arterial Blood Ionized Calcium Urine WBC (Auto) Coronavirus (PCR) SARS-CoV-2 IgG Ab Crossmatch 06/01/20 06/01/20 06/01/20 05:01 07:47 07:47 WBC 14.4 H RBC 3.46 L Hgb 11.1 L Hct 34.3 L MCV 99 H MCH MCHC RDW Lymph % (Auto) [place] % (Auto) Lymph # (Auto) [place] # (Auto) Baso # (Auto) Seg Neutrophils % Seg Neuts % (Manual) 86.0 H Lymphocytes % (Manual) 9.0 L Nucleated RBC % Seg Neutrophils # Seg Neutrophils # Man 12.4 H Lymphocytes # (Manual) Monocytes # (Manual) Eosinophils # (Manual) PT INR APTT D-Dimer Heparin Anti-Xa Level ABG pH POC ABG pCO2 POC ABG pO2 ABG pO2 ABG HCO3 ABG O2 Saturation ABG Base Excess ABG Hemoglobin ABG Oxyhemoglobin ABG Sodium ABG Potassium ABG Chloride ABG Glucose Oxyhemoglobin Carboxyhemoglobin Sodium Potassium Chloride Carbon Dioxide BUN Creatinine Glucose POC Glucose 197 H Lactic Acid Calcium Magnesium Ferritin Total Bilirubin Direct Bilirubin AST ALT Alkaline Phosphatase Lactate Dehydrogenase C-Reactive Protein Total Protein Albumin Triglycerides 244 H Lipase Arterial Blood Glucose Arterial Blood Ionized Calcium Urine WBC (Auto) Coronavirus (PCR) SARS-CoV-2 IgG Ab Crossmatch 06/01/20 06/01/20 06/01/20 07:47 11:46 18:15 WBC RBC Hgb Hct MCV MCH MCHC RDW Lymph % (Auto) [place] % (Auto) Lymph # (Auto) [place] # (Auto) Baso # (Auto) Seg Neutrophils % Seg Neuts % (Manual) Lymphocytes % (Manual) Nucleated RBC % Seg Neutrophils # Seg Neutrophils # Man Lymphocytes # (Manual) Monocytes # (Manual) Eosinophils # (Manual) PT INR APTT D-Dimer Heparin Anti-Xa Level ABG pH POC ABG pCO2 POC ABG pO2 ABG pO2 ABG HCO3 ABG O2 Saturation ABG Base Excess ABG Hemoglobin ABG Oxyhemoglobin ABG Sodium ABG Potassium ABG Chloride ABG Glucose Oxyhemoglobin Carboxyhemoglobin Sodium Potassium Chloride 95.4 L Carbon Dioxide 35 H BUN 30 H Creatinine 0.5 L Glucose 214 H POC Glucose 181 H 221 H Lactic Acid Calcium Magnesium Ferritin Total Bilirubin Direct Bilirubin AST 54 H ALT 235 H Alkaline Phosphatase Lactate Dehydrogenase C-Reactive Protein Total Protein Albumin 2.9 L Triglycerides Lipase Arterial Blood Glucose Arterial Blood Ionized Calcium Urine WBC (Auto) Coronavirus (PCR) SARS-CoV-2 IgG Ab Crossmatch 06/01/20 06/02/20 06/02/20 23:12 04:00 05:31 WBC RBC Hgb Hct MCV MCH MCHC RDW Lymph % (Auto) [place] % (Auto) Lymph # (Auto) [place] # (Auto) Baso # (Auto) Seg Neutrophils % Seg Neuts % (Manual) Lymphocytes % (Manual) Nucleated RBC % Seg Neutrophils # Seg Neutrophils # Man Lymphocytes # (Manual) Monocytes # (Manual) Eosinophils # (Manual) PT INR APTT D-Dimer Heparin Anti-Xa Level ABG pH 7.465 H POC ABG pCO2 POC ABG pO2 ABG pO2 203.4 H ABG HCO3 41.2 H ABG O2 Saturation 99.3 H ABG Base Excess 15.1 H ABG Hemoglobin 11.5 L ABG Oxyhemoglobin ABG Sodium ABG Potassium ABG Chloride ABG Glucose Oxyhemoglobin Carboxyhemoglobin Sodium Potassium Chloride Carbon Dioxide BUN Creatinine Glucose POC Glucose 197 H 184 H Lactic Acid Calcium Magnesium Ferritin Total Bilirubin Direct Bilirubin AST ALT Alkaline Phosphatase Lactate Dehydrogenase C-Reactive Protein Total Protein Albumin Triglycerides Lipase Arterial Blood Glucose Arterial Blood Ionized Calcium Urine WBC (Auto) Coronavirus (PCR) SARS-CoV-2 IgG Ab Crossmatch 06/02/20 06/02/20 06/02/20 11:49 18:06 23:00 WBC RBC Hgb Hct MCV MCH MCHC RDW Lymph % (Auto) [place] % (Auto) Lymph # (Auto) [place] # (Auto) Baso # (Auto) Seg Neutrophils % Seg Neuts % (Manual) Lymphocytes % (Manual) Nucleated RBC % Seg Neutrophils # Seg Neutrophils # Man Lymphocytes # (Manual) Monocytes # (Manual) Eosinophils # (Manual) PT INR APTT D-Dimer Heparin Anti-Xa Level ABG pH POC ABG pCO2 POC ABG pO2 ABG pO2 ABG HCO3 ABG O2 Saturation ABG Base Excess ABG Hemoglobin ABG Oxyhemoglobin ABG Sodium ABG Potassium ABG Chloride ABG Glucose Oxyhemoglobin Carboxyhemoglobin Sodium Potassium Chloride Carbon Dioxide BUN Creatinine Glucose POC Glucose 195 H 177 H 228 H Lactic Acid Calcium Magnesium Ferritin Total Bilirubin Direct Bilirubin AST ALT Alkaline Phosphatase Lactate Dehydrogenase C-Reactive Protein Total Protein Albumin Triglycerides Lipase Arterial Blood Glucose Arterial Blood Ionized Calcium Urine WBC (Auto) Coronavirus (PCR) SARS-CoV-2 IgG Ab Crossmatch 06/03/20 06/03/20 06/03/20 03:58 05:19 12:21 WBC RBC Hgb Hct MCV MCH MCHC RDW Lymph % (Auto) [place] % (Auto) Lymph # (Auto) [place] # (Auto) Baso # (Auto) Seg Neutrophils % Seg Neuts % (Manual) Lymphocytes % (Manual) Nucleated RBC % Seg Neutrophils # Seg Neutrophils # Man Lymphocytes # (Manual) Monocytes # (Manual) Eosinophils # (Manual) PT INR APTT D-Dimer Heparin Anti-Xa Level ABG pH POC ABG pCO2 POC ABG pO2 ABG pO2 171.0 H ABG HCO3 42.8 H ABG O2 Saturation ABG Base Excess 15.6 H ABG Hemoglobin 12.3 L ABG Oxyhemoglobin ABG Sodium ABG Potassium ABG Chloride ABG Glucose Oxyhemoglobin Carboxyhemoglobin Sodium Potassium Chloride Carbon Dioxide BUN Creatinine Glucose POC Glucose 122 H 207 H Lactic Acid Calcium Magnesium Ferritin Total Bilirubin Direct Bilirubin AST ALT Alkaline Phosphatase Lactate Dehydrogenase C-Reactive Protein Total Protein Albumin Triglycerides Lipase Arterial Blood Glucose Arterial Blood Ionized Calcium Urine WBC (Auto) Coronavirus (PCR) SARS-CoV-2 IgG Ab Crossmatch 06/03/20 06/03/20 06/04/20 17:27 23:50 03:55 WBC RBC Hgb Hct MCV MCH MCHC RDW Lymph % (Auto) [place] % (Auto) Lymph # (Auto) [place] # (Auto) Baso # (Auto) Seg Neutrophils % Seg Neuts % (Manual) Lymphocytes % (Manual) Nucleated RBC % Seg Neutrophils # Seg Neutrophils # Man Lymphocytes # (Manual) Monocytes # (Manual) Eosinophils # (Manual) PT INR APTT D-Dimer Heparin Anti-Xa Level ABG pH POC ABG pCO2 POC ABG pO2 ABG pO2 117.2 H ABG HCO3 42.4 H ABG O2 Saturation ABG Base Excess 15.3 H ABG Hemoglobin 10.5 L ABG Oxyhemoglobin ABG Sodium ABG Potassium ABG Chloride ABG Glucose Oxyhemoglobin Carboxyhemoglobin Sodium Potassium Chloride Carbon Dioxide BUN Creatinine Glucose POC Glucose 157 H 214 H Lactic Acid Calcium Magnesium Ferritin Total Bilirubin Direct Bilirubin AST ALT Alkaline Phosphatase Lactate Dehydrogenase C-Reactive Protein Total Protein Albumin Triglycerides Lipase Arterial Blood Glucose Arterial Blood Ionized Calcium Urine WBC (Auto) Coronavirus (PCR) SARS-CoV-2 IgG Ab Crossmatch 06/04/20 06/04/20 06/04/20 05:49 11:41 17:30 WBC RBC Hgb Hct MCV MCH MCHC RDW Lymph % (Auto) [place] % (Auto) Lymph # (Auto) [place] # (Auto) Baso # (Auto) Seg Neutrophils % Seg Neuts % (Manual) Lymphocytes % (Manual) Nucleated RBC % Seg Neutrophils # Seg Neutrophils # Man Lymphocytes # (Manual) Monocytes # (Manual) Eosinophils # (Manual) PT INR APTT D-Dimer Heparin Anti-Xa Level ABG pH POC ABG pCO2 POC ABG pO2 ABG pO2 ABG HCO3 ABG O2 Saturation ABG Base Excess ABG Hemoglobin ABG Oxyhemoglobin ABG Sodium ABG Potassium ABG Chloride ABG Glucose Oxyhemoglobin Carboxyhemoglobin Sodium Potassium Chloride Carbon Dioxide BUN Creatinine Glucose POC Glucose 149 H 233 H 156 H Lactic Acid Calcium Magnesium Ferritin Total Bilirubin Direct Bilirubin AST ALT Alkaline Phosphatase Lactate Dehydrogenase C-Reactive Protein Total Protein Albumin Triglycerides Lipase Arterial Blood Glucose Arterial Blood Ionized Calcium Urine WBC (Auto) Coronavirus (PCR) SARS-CoV-2 IgG Ab Crossmatch 06/04/20 06/04/20 06/04/20 19:01 20:53 23:41 WBC RBC 3.18 L Hgb 10.8 L Hct 31.8 L MCV 100 H MCH 34 H MCHC RDW Lymph % (Auto) [place] % (Auto) Lymph # (Auto) [place] # (Auto) Baso # (Auto) Seg Neutrophils % Seg Neuts % (Manual) 86.0 H Lymphocytes % (Manual) 10.0 L Nucleated RBC % 1.0 H Seg Neutrophils # Seg Neutrophils # Man 8.5 H Lymphocytes # (Manual) 1.0 L Monocytes # (Manual) Eosinophils # (Manual) PT INR APTT D-Dimer Heparin Anti-Xa Level ABG pH POC ABG pCO2 POC ABG pO2 ABG pO2 ABG HCO3 ABG O2 Saturation ABG Base Excess ABG Hemoglobin ABG Oxyhemoglobin ABG Sodium ABG Potassium ABG Chloride ABG Glucose Oxyhemoglobin Carboxyhemoglobin Sodium Potassium 3.4 L D Chloride 96.5 L Carbon Dioxide 41 H* BUN 27 H Creatinine 0.5 L Glucose 173 H POC Glucose 217 H Lactic Acid Calcium Magnesium Ferritin Total Bilirubin Direct Bilirubin AST ALT Alkaline Phosphatase Lactate Dehydrogenase C-Reactive Protein Total Protein Albumin Triglycerides Lipase Arterial Blood Glucose Arterial Blood Ionized Calcium Urine WBC (Auto) Coronavirus (PCR) SARS-CoV-2 IgG Ab Crossmatch 06/05/20 06/05/20 06/05/20 06:05 11:54 12:35 WBC RBC Hgb Hct MCV MCH MCHC RDW Lymph % (Auto) [place] % (Auto) Lymph # (Auto) [place] # (Auto) Baso # (Auto) Seg Neutrophils % Seg Neuts % (Manual) Lymphocytes % (Manual) Nucleated RBC % Seg Neutrophils # Seg Neutrophils # Man Lymphocytes # (Manual) Monocytes # (Manual) Eosinophils # (Manual) PT INR APTT D-Dimer Heparin Anti-Xa Level ABG pH POC ABG pCO2 POC ABG pO2 ABG pO2 127.9 H ABG HCO3 41.1 H ABG O2 Saturation ABG Base Excess 13.0 H ABG Hemoglobin 13.4 L ABG Oxyhemoglobin ABG Sodium ABG Potassium ABG Chloride ABG Glucose Oxyhemoglobin Carboxyhemoglobin Sodium Potassium Chloride Carbon Dioxide BUN Creatinine Glucose POC Glucose 137 H 211 H Lactic Acid Calcium Magnesium Ferritin Total Bilirubin Direct Bilirubin AST ALT Alkaline Phosphatase Lactate Dehydrogenase C-Reactive Protein Total Protein Albumin Triglycerides Lipase Arterial Blood Glucose Arterial Blood Ionized Calcium Urine WBC (Auto) Coronavirus (PCR) SARS-CoV-2 IgG Ab Crossmatch 06/05/20 06/05/20 06/06/20 17:03 23:49 04:42 WBC RBC Hgb Hct MCV MCH MCHC RDW Lymph % (Auto) [place] % (Auto) Lymph # (Auto) [place] # (Auto) Baso # (Auto) Seg Neutrophils % Seg Neuts % (Manual) Lymphocytes % (Manual) Nucleated RBC % Seg Neutrophils # Seg Neutrophils # Man Lymphocytes # (Manual) Monocytes # (Manual) Eosinophils # (Manual) PT INR APTT D-Dimer Heparin Anti-Xa Level ABG pH POC ABG pCO2 56.1 H POC ABG pO2 52.5 L ABG pO2 ABG HCO3 ABG O2 Saturation ABG Base Excess ABG Hemoglobin 11.7 L ABG Oxyhemoglobin ABG Sodium ABG Potassium 3.3 L ABG Chloride 95.0 L ABG Glucose 156 H Oxyhemoglobin Carboxyhemoglobin Sodium Potassium Chloride Carbon Dioxide BUN Creatinine Glucose POC Glucose 159 H 194 H Lactic Acid Calcium Magnesium Ferritin Total Bilirubin Direct Bilirubin AST ALT Alkaline Phosphatase Lactate Dehydrogenase C-Reactive Protein Total Protein Albumin Triglycerides Lipase Arterial Blood Glucose 156 H Arterial Blood Ionized Calcium Urine WBC (Auto) Coronavirus (PCR) SARS-CoV-2 IgG Ab Crossmatch 06/06/20 06/06/20 06/06/20 05:57 12:06 17:38 WBC RBC Hgb Hct MCV MCH MCHC RDW Lymph % (Auto) [place] % (Auto) Lymph # (Auto) [place] # (Auto) Baso # (Auto) Seg Neutrophils % Seg Neuts % (Manual) Lymphocytes % (Manual) Nucleated RBC % Seg Neutrophils # Seg Neutrophils # Man Lymphocytes # (Manual) Monocytes # (Manual) Eosinophils # (Manual) PT INR APTT D-Dimer Heparin Anti-Xa Level ABG pH POC ABG pCO2 POC ABG pO2 ABG pO2 ABG HCO3 ABG O2 Saturation ABG Base Excess ABG Hemoglobin ABG Oxyhemoglobin ABG Sodium ABG Potassium ABG Chloride ABG Glucose Oxyhemoglobin Carboxyhemoglobin Sodium Potassium Chloride Carbon Dioxide BUN Creatinine Glucose POC Glucose 144 H 230 H 162 H Lactic Acid Calcium Magnesium Ferritin Total Bilirubin Direct Bilirubin AST ALT Alkaline Phosphatase Lactate Dehydrogenase C-Reactive Protein Total Protein Albumin Triglycerides Lipase Arterial Blood Glucose Arterial Blood Ionized Calcium Urine WBC (Auto) Coronavirus (PCR) SARS-CoV-2 IgG Ab Crossmatch 06/06/20 06/07/20 06/07/20 23:50 04:34 06:03 WBC RBC Hgb Hct MCV MCH MCHC RDW Lymph % (Auto) [place] % (Auto) Lymph # (Auto) [place] # (Auto) Baso # (Auto) Seg Neutrophils % Seg Neuts % (Manual) Lymphocytes % (Manual) Nucleated RBC % Seg Neutrophils # Seg Neutrophils # Man Lymphocytes # (Manual) Monocytes # (Manual) Eosinophils # (Manual) PT INR APTT D-Dimer Heparin Anti-Xa Level ABG pH 7.511 H POC ABG pCO2 53.5 H POC ABG pO2 114.5 H ABG pO2 ABG HCO3 ABG O2 Saturation ABG Base Excess ABG Hemoglobin 9.4 L ABG Oxyhemoglobin ABG Sodium 134.5 L ABG Potassium ABG Chloride 94.0 L ABG Glucose 186 H Oxyhemoglobin Carboxyhemoglobin Sodium Potassium Chloride Carbon Dioxide BUN Creatinine Glucose POC Glucose 181 H 155 H Lactic Acid Calcium Magnesium Ferritin Total Bilirubin Direct Bilirubin AST ALT Alkaline Phosphatase Lactate Dehydrogenase C-Reactive Protein Total Protein Albumin Triglycerides Lipase Arterial Blood Glucose 186 H Arterial Blood Ionized Calcium 4.5 L Urine WBC (Auto) Coronavirus (PCR) SARS-CoV-2 IgG Ab Crossmatch 06/07/20 06/07/20 06/07/20 13:41 14:58 14:58 WBC RBC 2.72 L Hgb 9.3 L Hct 27.2 L MCV 100 H MCH 34 H MCHC RDW Lymph % (Auto) [place] % (Auto) Lymph # (Auto) [place] # (Auto) Baso # (Auto) Seg Neutrophils % Seg Neuts % (Manual) Lymphocytes % (Manual) Nucleated RBC % Seg Neutrophils # Seg Neutrophils # Man Lymphocytes # (Manual) Monocytes # (Manual) Eosinophils # (Manual) PT INR APTT D-Dimer Heparin Anti-Xa Level ABG pH POC ABG pCO2 POC ABG pO2 ABG pO2 ABG HCO3 ABG O2 Saturation ABG Base Excess ABG Hemoglobin ABG Oxyhemoglobin ABG Sodium ABG Potassium ABG Chloride ABG Glucose Oxyhemoglobin Carboxyhemoglobin Sodium Potassium Chloride 93.5 L Carbon Dioxide 39 H BUN 22 H Creatinine 0.4 L Glucose 188 H POC Glucose 201 H Lactic Acid Calcium Magnesium Ferritin Total Bilirubin Direct Bilirubin AST 61 H ALT 273 H Alkaline Phosphatase Lactate Dehydrogenase C-Reactive Protein Total Protein 5.9 L Albumin 2.7 L Triglycerides Lipase Arterial Blood Glucose Arterial Blood Ionized Calcium Urine WBC (Auto) Coronavirus (PCR) SARS-CoV-2 IgG Ab Crossmatch 06/07/20 06/08/20 06/08/20 23:18 05:31 12:07 WBC RBC Hgb Hct MCV MCH MCHC RDW Lymph % (Auto) [place] % (Auto) Lymph # (Auto) [place] # (Auto) Baso # (Auto) Seg Neutrophils % Seg Neuts % (Manual) Lymphocytes % (Manual) Nucleated RBC % Seg Neutrophils # Seg Neutrophils # Man Lymphocytes # (Manual) Monocytes # (Manual) Eosinophils # (Manual) PT INR APTT D-Dimer Heparin Anti-Xa Level ABG pH POC ABG pCO2 POC ABG pO2 ABG pO2 ABG HCO3 ABG O2 Saturation ABG Base Excess ABG Hemoglobin ABG Oxyhemoglobin ABG Sodium ABG Potassium ABG Chloride ABG Glucose Oxyhemoglobin Carboxyhemoglobin Sodium Potassium Chloride Carbon Dioxide BUN Creatinine Glucose POC Glucose 214 H 129 H 179 H Lactic Acid Calcium Magnesium Ferritin Total Bilirubin Direct Bilirubin AST ALT Alkaline Phosphatase Lactate Dehydrogenase C-Reactive Protein Total Protein Albumin Triglycerides Lipase Arterial Blood Glucose Arterial Blood Ionized Calcium Urine WBC (Auto) Coronavirus (PCR) SARS-CoV-2 IgG Ab Crossmatch 06/08/20 06/08/20 06/09/20 18:18 23:35 05:42 WBC RBC Hgb Hct MCV MCH MCHC RDW Lymph % (Auto) [place] % (Auto) Lymph # (Auto) [place] # (Auto) Baso # (Auto) Seg Neutrophils % Seg Neuts % (Manual) Lymphocytes % (Manual) Nucleated RBC % Seg Neutrophils # Seg Neutrophils # Man Lymphocytes # (Manual) Monocytes # (Manual) Eosinophils # (Manual) PT INR APTT D-Dimer Heparin Anti-Xa Level ABG pH POC ABG pCO2 POC ABG pO2 ABG pO2 ABG HCO3 ABG O2 Saturation ABG Base Excess ABG Hemoglobin ABG Oxyhemoglobin ABG Sodium ABG Potassium ABG Chloride ABG Glucose Oxyhemoglobin Carboxyhemoglobin Sodium Potassium Chloride Carbon Dioxide BUN Creatinine Glucose POC Glucose 172 H 177 H 137 H Lactic Acid Calcium Magnesium Ferritin Total Bilirubin Direct Bilirubin AST ALT Alkaline Phosphatase Lactate Dehydrogenase C-Reactive Protein Total Protein Albumin Triglycerides Lipase Arterial Blood Glucose Arterial Blood Ionized Calcium Urine WBC (Auto) Coronavirus (PCR) SARS-CoV-2 IgG Ab Crossmatch 06/09/20 06/09/20 06/09/20 06:20 07:55 07:55 WBC 12.4 H RBC 3.26 L Hgb 11.1 L Hct 33.4 L D MCV 102 H MCH 34 H MCHC RDW Lymph % (Auto) [place] % (Auto) Lymph # (Auto) [place] # (Auto) Baso # (Auto) Seg Neutrophils % Seg Neuts % (Manual) Lymphocytes % (Manual) Nucleated RBC % Seg Neutrophils # Seg Neutrophils # Man Lymphocytes # (Manual) Monocytes # (Manual) Eosinophils # (Manual) PT INR APTT D-Dimer Heparin Anti-Xa Level ABG pH 7.466 H POC ABG pCO2 50.7 H POC ABG pO2 53.0 L ABG pO2 ABG HCO3 ABG O2 Saturation ABG Base Excess ABG Hemoglobin ABG Oxyhemoglobin ABG Sodium ABG Potassium 2.9 L ABG Chloride 93.0 L ABG Glucose 138 H Oxyhemoglobin Carboxyhemoglobin Sodium Potassium 3.0 L Chloride 92.3 L Carbon Dioxide 37 H BUN 21 H Creatinine 0.6 L Glucose 120 H POC Glucose Lactic Acid Calcium Magnesium Ferritin Total Bilirubin Direct Bilirubin AST ALT Alkaline Phosphatase Lactate Dehydrogenase C-Reactive Protein Total Protein Albumin Triglycerides Lipase Arterial Blood Glucose 138 H Arterial Blood Ionized Calcium 4.5 L Urine WBC (Auto) Coronavirus (PCR) SARS-CoV-2 IgG Ab Crossmatch 06/09/20 06/09/20 06/10/20 11:22 18:32 04:46 WBC RBC Hgb Hct MCV MCH MCHC RDW Lymph % (Auto) [place] % (Auto) Lymph # (Auto) [place] # (Auto) Baso # (Auto) Seg Neutrophils % Seg Neuts % (Manual) Lymphocytes % (Manual) Nucleated RBC % Seg Neutrophils # Seg Neutrophils # Man Lymphocytes # (Manual) Monocytes # (Manual) Eosinophils # (Manual) PT INR APTT D-Dimer Heparin Anti-Xa Level ABG pH 7.501 H POC ABG pCO2 POC ABG pO2 126.5 H ABG pO2 ABG HCO3 ABG O2 Saturation ABG Base Excess ABG Hemoglobin 10.3 L ABG Oxyhemoglobin ABG Sodium ABG Potassium ABG Chloride ABG Glucose 220 H Oxyhemoglobin Carboxyhemoglobin Sodium Potassium Chloride Carbon Dioxide BUN Creatinine Glucose POC Glucose 117 H 121 H Lactic Acid Calcium Magnesium Ferritin Total Bilirubin Direct Bilirubin AST ALT Alkaline Phosphatase Lactate Dehydrogenase C-Reactive Protein Total Protein Albumin Triglycerides Lipase Arterial Blood Glucose 220 H Arterial Blood Ionized Calcium Urine WBC (Auto) Coronavirus (PCR) SARS-CoV-2 IgG Ab Crossmatch 06/10/20 06/10/20 06/10/20 05:30 09:38 12:03 WBC RBC Hgb Hct MCV MCH MCHC RDW Lymph % (Auto) [place] % (Auto) Lymph # (Auto) [place] # (Auto) Baso # (Auto) Seg Neutrophils % Seg Neuts % (Manual) Lymphocytes % (Manual) Nucleated RBC % Seg Neutrophils # Seg Neutrophils # Man Lymphocytes # (Manual) Monocytes # (Manual) Eosinophils # (Manual) PT INR APTT D-Dimer Heparin Anti-Xa Level ABG pH POC ABG pCO2 POC ABG pO2 ABG pO2 ABG HCO3 ABG O2 Saturation ABG Base Excess ABG Hemoglobin ABG Oxyhemoglobin ABG Sodium ABG Potassium ABG Chloride ABG Glucose Oxyhemoglobin Carboxyhemoglobin Sodium Potassium Chloride Carbon Dioxide BUN Creatinine Glucose POC Glucose 181 H 204 H Lactic Acid Calcium Magnesium Ferritin Total Bilirubin Direct Bilirubin AST ALT Alkaline Phosphatase Lactate Dehydrogenase C-Reactive Protein Total Protein Albumin Triglycerides 738 H Lipase Arterial Blood Glucose Arterial Blood Ionized Calcium Urine WBC (Auto) Coronavirus (PCR) SARS-CoV-2 IgG Ab Crossmatch 06/10/20 06/11/20 06/11/20 17:17 00:04 04:38 WBC RBC Hgb Hct MCV MCH MCHC RDW Lymph % (Auto) [place] % (Auto) Lymph # (Auto) [place] # (Auto) Baso # (Auto) Seg Neutrophils % Seg Neuts % (Manual) Lymphocytes % (Manual) Nucleated RBC % Seg Neutrophils # Seg Neutrophils # Man Lymphocytes # (Manual) Monocytes # (Manual) Eosinophils # (Manual) PT INR APTT D-Dimer Heparin Anti-Xa Level ABG pH 7.479 H POC ABG pCO2 POC ABG pO2 76.7 L ABG pO2 ABG HCO3 ABG O2 Saturation ABG Base Excess ABG Hemoglobin 9.8 L ABG Oxyhemoglobin ABG Sodium 135.8 L ABG Potassium ABG Chloride ABG Glucose 238 H Oxyhemoglobin Carboxyhemoglobin Sodium Potassium Chloride Carbon Dioxide BUN Creatinine Glucose POC Glucose 156 H 178 H Lactic Acid Calcium Magnesium Ferritin Total Bilirubin Direct Bilirubin AST ALT Alkaline Phosphatase Lactate Dehydrogenase C-Reactive Protein Total Protein Albumin Triglycerides Lipase Arterial Blood Glucose 238 H Arterial Blood Ionized Calcium Urine WBC (Auto) Coronavirus (PCR) SARS-CoV-2 IgG Ab Crossmatch 06/11/20 06/11/20 06/11/20 05:21 06:52 11:50 WBC RBC Hgb Hct MCV MCH MCHC RDW Lymph % (Auto) [place] % (Auto) Lymph # (Auto) [place] # (Auto) Baso # (Auto) Seg Neutrophils % Seg Neuts % (Manual) Lymphocytes % (Manual) Nucleated RBC % Seg Neutrophils # Seg Neutrophils # Man Lymphocytes # (Manual) Monocytes # (Manual) Eosinophils # (Manual) PT INR APTT D-Dimer Heparin Anti-Xa Level ABG pH POC ABG pCO2 POC ABG pO2 ABG pO2 ABG HCO3 ABG O2 Saturation ABG Base Excess ABG Hemoglobin ABG Oxyhemoglobin ABG Sodium ABG Potassium ABG Chloride ABG Glucose Oxyhemoglobin Carboxyhemoglobin Sodium Potassium Chloride Carbon Dioxide BUN Creatinine Glucose POC Glucose 215 H 187 H Lactic Acid Calcium Magnesium Ferritin Total Bilirubin Direct Bilirubin AST ALT Alkaline Phosphatase Lactate Dehydrogenase C-Reactive Protein Total Protein Albumin Triglycerides 331 H Lipase Arterial Blood Glucose Arterial Blood Ionized Calcium Urine WBC (Auto) Coronavirus (PCR) SARS-CoV-2 IgG Ab Crossmatch 06/11/20 06/11/20 06/12/20 17:49 23:35 04:52 WBC RBC Hgb Hct MCV MCH MCHC RDW Lymph % (Auto) [place] % (Auto) Lymph # (Auto) [place] # (Auto) Baso # (Auto) Seg Neutrophils % Seg Neuts % (Manual) Lymphocytes % (Manual) Nucleated RBC % Seg Neutrophils # Seg Neutrophils # Man Lymphocytes # (Manual) Monocytes # (Manual) Eosinophils # (Manual) PT INR APTT D-Dimer Heparin Anti-Xa Level ABG pH 7.486 H POC ABG pCO2 POC ABG pO2 ABG pO2 ABG HCO3 ABG O2 Saturation ABG Base Excess ABG Hemoglobin 9.4 L ABG Oxyhemoglobin ABG Sodium ABG Potassium 3.2 L ABG Chloride ABG Glucose 209 H Oxyhemoglobin Carboxyhemoglobin Sodium Potassium Chloride Carbon Dioxide BUN Creatinine Glucose POC Glucose 211 H 200 H Lactic Acid Calcium Magnesium Ferritin Total Bilirubin Direct Bilirubin AST ALT Alkaline Phosphatase Lactate Dehydrogenase C-Reactive Protein Total Protein Albumin Triglycerides Lipase Arterial Blood Glucose 209 H Arterial Blood Ionized Calcium Urine WBC (Auto) Coronavirus (PCR) SARS-CoV-2 IgG Ab Crossmatch 06/12/20 06/12/20 06/12/20 05:13 11:47 18:33 WBC RBC Hgb Hct MCV MCH MCHC RDW Lymph % (Auto) [place] % (Auto) Lymph # (Auto) [place] # (Auto) Baso # (Auto) Seg Neutrophils % Seg Neuts % (Manual) Lymphocytes % (Manual) Nucleated RBC % Seg Neutrophils # Seg Neutrophils # Man Lymphocytes # (Manual) Monocytes # (Manual) Eosinophils # (Manual) PT INR APTT D-Dimer Heparin Anti-Xa Level ABG pH POC ABG pCO2 POC ABG pO2 ABG pO2 ABG HCO3 ABG O2 Saturation ABG Base Excess ABG Hemoglobin ABG Oxyhemoglobin ABG Sodium ABG Potassium ABG Chloride ABG Glucose Oxyhemoglobin Carboxyhemoglobin Sodium Potassium Chloride Carbon Dioxide BUN Creatinine Glucose POC Glucose 174 H 214 H 194 H Lactic Acid Calcium Magnesium Ferritin Total Bilirubin Direct Bilirubin AST ALT Alkaline Phosphatase Lactate Dehydrogenase C-Reactive Protein Total Protein Albumin Triglycerides Lipase Arterial Blood Glucose Arterial Blood Ionized Calcium Urine WBC (Auto) Coronavirus (PCR) SARS-CoV-2 IgG Ab Crossmatch 06/12/20 06/13/20 06/13/20 23:49 05:41 12:30 WBC RBC Hgb Hct MCV MCH MCHC RDW Lymph % (Auto) [place] % (Auto) Lymph # (Auto) [place] # (Auto) Baso # (Auto) Seg Neutrophils % Seg Neuts % (Manual) Lymphocytes % (Manual) Nucleated RBC % Seg Neutrophils # Seg Neutrophils # Man Lymphocytes # (Manual) Monocytes # (Manual) Eosinophils # (Manual) PT INR APTT D-Dimer Heparin Anti-Xa Level ABG pH POC ABG pCO2 POC ABG pO2 ABG pO2 ABG HCO3 ABG O2 Saturation ABG Base Excess ABG Hemoglobin ABG Oxyhemoglobin ABG Sodium ABG Potassium ABG Chloride ABG Glucose Oxyhemoglobin Carboxyhemoglobin Sodium Potassium Chloride Carbon Dioxide BUN Creatinine Glucose POC Glucose 160 H 150 H 181 H Lactic Acid Calcium Magnesium Ferritin Total Bilirubin Direct Bilirubin AST ALT Alkaline Phosphatase Lactate Dehydrogenase C-Reactive Protein Total Protein Albumin Triglycerides Lipase Arterial Blood Glucose Arterial Blood Ionized Calcium Urine WBC (Auto) Coronavirus (PCR) SARS-CoV-2 IgG Ab Crossmatch 06/13/20 06/13/20 06/13/20 14:14 17:48 23:27 WBC 12.8 H RBC 2.33 L Hgb 8.0 L Hct 23.3 L MCV 100 H MCH 34 H MCHC RDW 15.7 H Lymph % (Auto) [place] % (Auto) Lymph # (Auto) [place] # (Auto) Baso # (Auto) Seg Neutrophils % Seg Neuts % (Manual) 85.0 H Lymphocytes % (Manual) 10.0 L Nucleated RBC % Seg Neutrophils # Seg Neutrophils # Man 10.9 H Lymphocytes # (Manual) Monocytes # (Manual) Eosinophils # (Manual) PT INR APTT D-Dimer Heparin Anti-Xa Level ABG pH POC ABG pCO2 POC ABG pO2 ABG pO2 ABG HCO3 ABG O2 Saturation ABG Base Excess ABG Hemoglobin ABG Oxyhemoglobin ABG Sodium ABG Potassium ABG Chloride ABG Glucose Oxyhemoglobin Carboxyhemoglobin Sodium Potassium Chloride Carbon Dioxide BUN Creatinine Glucose POC Glucose 173 H 154 H Lactic Acid Calcium Magnesium Ferritin Total Bilirubin Direct Bilirubin AST ALT Alkaline Phosphatase Lactate Dehydrogenase C-Reactive Protein Total Protein Albumin Triglycerides Lipase Arterial Blood Glucose Arterial Blood Ionized Calcium Urine WBC (Auto) Coronavirus (PCR) SARS-CoV-2 IgG Ab Crossmatch 06/14/20 06/14/20 06/14/20 03:58 05:21 07:15 WBC 26.2 H RBC 2.97 L Hgb 9.7 L Hct 29.9 L D MCV 101 H MCH 33 H MCHC RDW 15.3 H Lymph % (Auto) [place] % (Auto) Lymph # (Auto) [place] # (Auto) Baso # (Auto) Seg Neutrophils % Seg Neuts % (Manual) 79.0 H Lymphocytes % (Manual) 5.0 L Nucleated RBC % 3.0 H Seg Neutrophils # Seg Neutrophils # Man 20.7 H Lymphocytes # (Manual) Monocytes # (Manual) 1.3 H Eosinophils # (Manual) PT INR APTT D-Dimer Heparin Anti-Xa Level ABG pH POC ABG pCO2 51.5 H POC ABG pO2 70.0 L ABG pO2 ABG HCO3 ABG O2 Saturation ABG Base Excess ABG Hemoglobin 10.1 L ABG Oxyhemoglobin ABG Sodium 131.5 L ABG Potassium 3.1 L ABG Chloride 93.0 L ABG Glucose 188 H Oxyhemoglobin Carboxyhemoglobin Sodium Potassium Chloride Carbon Dioxide BUN Creatinine Glucose POC Glucose 147 H Lactic Acid Calcium Magnesium Ferritin Total Bilirubin Direct Bilirubin AST ALT Alkaline Phosphatase Lactate Dehydrogenase C-Reactive Protein Total Protein Albumin Triglycerides Lipase Arterial Blood Glucose 188 H Arterial Blood Ionized Calcium Urine WBC (Auto) Coronavirus (PCR) SARS-CoV-2 IgG Ab Crossmatch 06/14/20 06/14/20 06/14/20 07:15 11:30 11:50 WBC RBC Hgb Hct MCV MCH MCHC RDW Lymph % (Auto) [place] % (Auto) Lymph # (Auto) [place] # (Auto) Baso # (Auto) Seg Neutrophils % Seg Neuts % (Manual) Lymphocytes % (Manual) Nucleated RBC % Seg Neutrophils # Seg Neutrophils # Man Lymphocytes # (Manual) Monocytes # (Manual) Eosinophils # (Manual) PT INR APTT D-Dimer Heparin Anti-Xa Level ABG pH POC ABG pCO2 POC ABG pO2 ABG pO2 ABG HCO3 ABG O2 Saturation ABG Base Excess ABG Hemoglobin ABG Oxyhemoglobin ABG Sodium ABG Potassium ABG Chloride ABG Glucose Oxyhemoglobin Carboxyhemoglobin Sodium 135 L Potassium 3.5 L Chloride 90.4 L Carbon Dioxide 38 H BUN Creatinine 0.5 L Glucose 190 H POC Glucose 176 H Lactic Acid Calcium Magnesium Ferritin 1496.0 H Total Bilirubin Direct Bilirubin AST ALT 81 H Alkaline Phosphatase Lactate Dehydrogenase C-Reactive Protein Total Protein Albumin 2.9 L Triglycerides Lipase Arterial Blood Glucose Arterial Blood Ionized Calcium Urine WBC (Auto) Coronavirus (PCR) SARS-CoV-2 IgG Ab Crossmatch 06/14/20 06/15/20 06/15/20 23:31 04:00 05:00 WBC RBC Hgb Hct MCV MCH MCHC RDW Lymph % (Auto) [place] % (Auto) Lymph # (Auto) [place] # (Auto) Baso # (Auto) Seg Neutrophils % Seg Neuts % (Manual) Lymphocytes % (Manual) Nucleated RBC % Seg Neutrophils # Seg Neutrophils # Man Lymphocytes # (Manual) Monocytes # (Manual) Eosinophils # (Manual) PT INR APTT D-Dimer Heparin Anti-Xa Level ABG pH POC ABG pCO2 POC ABG pO2 ABG pO2 ABG HCO3 ABG O2 Saturation ABG Base Excess ABG Hemoglobin ABG Oxyhemoglobin ABG Sodium ABG Potassium ABG Chloride ABG Glucose Oxyhemoglobin Carboxyhemoglobin Sodium 133 L Potassium Chloride 91.1 L Carbon Dioxide 34 H BUN Creatinine 0.4 L Glucose 159 H POC Glucose 200 H Lactic Acid Calcium Magnesium Ferritin Total Bilirubin 2.00 H Direct Bilirubin AST 47 H ALT 77 H Alkaline Phosphatase Lactate Dehydrogenase C-Reactive Protein Total Protein Albumin 2.6 L Triglycerides 152 H Lipase Arterial Blood Glucose Arterial Blood Ionized Calcium Urine WBC (Auto) Coronavirus (PCR) SARS-CoV-2 IgG Ab Crossmatch 06/15/20 06/15/20 06/15/20 05:35 06:27 11:38 WBC RBC Hgb Hct MCV MCH MCHC RDW Lymph % (Auto) [place] % (Auto) Lymph # (Auto) [place] # (Auto) Baso # (Auto) Seg Neutrophils % Seg Neuts % (Manual) Lymphocytes % (Manual) Nucleated RBC % Seg Neutrophils # Seg Neutrophils # Man Lymphocytes # (Manual) Monocytes # (Manual) Eosinophils # (Manual) PT INR APTT D-Dimer Heparin Anti-Xa Level ABG pH POC ABG pCO2 61.0 H POC ABG pO2 67.9 L ABG pO2 ABG HCO3 ABG O2 Saturation ABG Base Excess ABG Hemoglobin 10.4 L ABG Oxyhemoglobin ABG Sodium 132.7 L ABG Potassium 3.3 L ABG Chloride 92.0 L ABG Glucose 158 H Oxyhemoglobin Carboxyhemoglobin Sodium Potassium Chloride Carbon Dioxide BUN Creatinine Glucose POC Glucose 148 H 197 H Lactic Acid Calcium Magnesium Ferritin Total Bilirubin Direct Bilirubin AST ALT Alkaline Phosphatase Lactate Dehydrogenase C-Reactive Protein Total Protein Albumin Triglycerides Lipase Arterial Blood Glucose 158 H Arterial Blood Ionized Calcium Urine WBC (Auto) Coronavirus (PCR) SARS-CoV-2 IgG Ab Crossmatch 06/15/20 06/15/20 06/16/20 17:29 Unknown 00:01 WBC 20.7 H RBC 2.57 L Hgb 8.9 L Hct 25.8 L MCV 101 H MCH 35 H MCHC 35 H RDW 16.0 H Lymph % (Auto) [place] % (Auto) Lymph # (Auto) [place] # (Auto) Baso # (Auto) Seg Neutrophils % Seg Neuts % (Manual) 83.0 H Lymphocytes % (Manual) 8.0 L Nucleated RBC % Seg Neutrophils # Seg Neutrophils # Man 17.2 H Lymphocytes # (Manual) Monocytes # (Manual) 1.2 H Eosinophils # (Manual) PT INR APTT D-Dimer Heparin Anti-Xa Level ABG pH POC ABG pCO2 POC ABG pO2 ABG pO2 ABG HCO3 ABG O2 Saturation ABG Base Excess ABG Hemoglobin ABG Oxyhemoglobin ABG Sodium ABG Potassium ABG Chloride ABG Glucose Oxyhemoglobin Carboxyhemoglobin Sodium Potassium Chloride Carbon Dioxide BUN Creatinine Glucose POC Glucose 231 H 257 H Lactic Acid Calcium Magnesium Ferritin Total Bilirubin Direct Bilirubin AST ALT Alkaline Phosphatase Lactate Dehydrogenase C-Reactive Protein Total Protein Albumin Triglycerides Lipase Arterial Blood Glucose Arterial Blood Ionized Calcium Urine WBC (Auto) Coronavirus (PCR) SARS-CoV-2 IgG Ab Crossmatch 06/16/20 06/16/20 06/16/20 04:00 04:00 05:22 WBC 13.8 H RBC 2.03 L Hgb 7.6 L Hct 20.7 L MCV 102 H MCH 37 H MCHC 37 H RDW 16.2 H Lymph % (Auto) 4.4 L [place] % (Auto) Lymph # (Auto) 0.6 L [place] # (Auto) Baso # (Auto) Seg Neutrophils % Seg Neuts % (Manual) Lymphocytes % (Manual) Nucleated RBC % Seg Neutrophils # 12.7 H Seg Neutrophils # Man Lymphocytes # (Manual) Monocytes # (Manual) Eosinophils # (Manual) PT INR APTT D-Dimer Heparin Anti-Xa Level ABG pH POC ABG pCO2 POC ABG pO2 ABG pO2 ABG HCO3 ABG O2 Saturation ABG Base Excess ABG Hemoglobin ABG Oxyhemoglobin ABG Sodium ABG Potassium ABG Chloride ABG Glucose Oxyhemoglobin Carboxyhemoglobin Sodium 130 L Potassium Chloride 88.9 L Carbon Dioxide 36 H BUN Creatinine 0.3 L Glucose 276 H POC Glucose 250 H Lactic Acid Calcium Magnesium Ferritin Total Bilirubin Direct Bilirubin AST ALT Alkaline Phosphatase Lactate Dehydrogenase C-Reactive Protein Total Protein Albumin Triglycerides Lipase Arterial Blood Glucose Arterial Blood Ionized Calcium Urine WBC (Auto) Coronavirus (PCR) SARS-CoV-2 IgG Ab Crossmatch 06/16/20 06/16/20 06/17/20 12:44 18:18 00:39 WBC RBC Hgb Hct MCV MCH MCHC RDW Lymph % (Auto) [place] % (Auto) Lymph # (Auto) [place] # (Auto) Baso # (Auto) Seg Neutrophils % Seg Neuts % (Manual) Lymphocytes % (Manual) Nucleated RBC % Seg Neutrophils # Seg Neutrophils # Man Lymphocytes # (Manual) Monocytes # (Manual) Eosinophils # (Manual) PT INR APTT D-Dimer Heparin Anti-Xa Level ABG pH POC ABG pCO2 POC ABG pO2 ABG pO2 ABG HCO3 ABG O2 Saturation ABG Base Excess ABG Hemoglobin ABG Oxyhemoglobin ABG Sodium ABG Potassium ABG Chloride ABG Glucose Oxyhemoglobin Carboxyhemoglobin Sodium Potassium Chloride Carbon Dioxide BUN Creatinine Glucose POC Glucose 279 H 239 H 247 H Lactic Acid Calcium Magnesium Ferritin Total Bilirubin Direct Bilirubin AST ALT Alkaline Phosphatase Lactate Dehydrogenase C-Reactive Protein Total Protein Albumin Triglycerides Lipase Arterial Blood Glucose Arterial Blood Ionized Calcium Urine WBC (Auto) Coronavirus (PCR) SARS-CoV-2 IgG Ab Crossmatch 06/17/20 06/17/20 06/17/20 03:40 04:08 10:54 WBC RBC Hgb Hct MCV MCH MCHC RDW Lymph % (Auto) [place] % (Auto) Lymph # (Auto) [place] # (Auto) Baso # (Auto) Seg Neutrophils % Seg Neuts % (Manual) Lymphocytes % (Manual) Nucleated RBC % Seg Neutrophils # Seg Neutrophils # Man Lymphocytes # (Manual) Monocytes # (Manual) Eosinophils # (Manual) PT INR APTT D-Dimer Heparin Anti-Xa Level ABG pH POC ABG pCO2 65.7 H POC ABG pO2 ABG pO2 ABG HCO3 ABG O2 Saturation ABG Base Excess ABG Hemoglobin 11.9 L ABG Oxyhemoglobin ABG Sodium ABG Potassium ABG Chloride 93.0 L ABG Glucose 244 H Oxyhemoglobin Carboxyhemoglobin Sodium Potassium Chloride Carbon Dioxide BUN Creatinine Glucose POC Glucose 221 H 248 H Lactic Acid Calcium Magnesium Ferritin Total Bilirubin Direct Bilirubin AST ALT Alkaline Phosphatase Lactate Dehydrogenase C-Reactive Protein Total Protein Albumin Triglycerides Lipase Arterial Blood Glucose 244 H Arterial Blood Ionized Calcium Urine WBC (Auto) Coronavirus (PCR) SARS-CoV-2 IgG Ab Crossmatch 06/17/20 06/17/20 06/17/20 17:47 23:11 23:29 WBC RBC Hgb Hct MCV MCH MCHC RDW Lymph % (Auto) [place] % (Auto) Lymph # (Auto) [place] # (Auto) Baso # (Auto) Seg Neutrophils % Seg Neuts % (Manual) Lymphocytes % (Manual) Nucleated RBC % Seg Neutrophils # Seg Neutrophils # Man Lymphocytes # (Manual) Monocytes # (Manual) Eosinophils # (Manual) PT INR APTT D-Dimer Heparin Anti-Xa Level ABG pH POC ABG pCO2 85.2 H POC ABG pO2 48.4 L ABG pO2 ABG HCO3 ABG O2 Saturation ABG Base Excess ABG Hemoglobin 8.0 L ABG Oxyhemoglobin ABG Sodium ABG Potassium ABG Chloride 95.0 L ABG Glucose 292 H Oxyhemoglobin Carboxyhemoglobin Sodium Potassium Chloride Carbon Dioxide BUN Creatinine Glucose POC Glucose 245 H 252 H Lactic Acid Calcium Magnesium Ferritin Total Bilirubin Direct Bilirubin AST ALT Alkaline Phosphatase Lactate Dehydrogenase C-Reactive Protein Total Protein Albumin Triglycerides Lipase Arterial Blood Glucose 292 H Arterial Blood Ionized Calcium Urine WBC (Auto) Coronavirus (PCR) SARS-CoV-2 IgG Ab Crossmatch 06/18/20 06/18/20 06/18/20 03:14 05:34 11:47 WBC RBC Hgb Hct MCV MCH MCHC RDW Lymph % (Auto) [place] % (Auto) Lymph # (Auto) [place] # (Auto) Baso # (Auto) Seg Neutrophils % Seg Neuts % (Manual) Lymphocytes % (Manual) Nucleated RBC % Seg Neutrophils # Seg Neutrophils # Man Lymphocytes # (Manual) Monocytes # (Manual) Eosinophils # (Manual) PT INR APTT D-Dimer Heparin Anti-Xa Level ABG pH POC ABG pCO2 65.4 H POC ABG pO2 160.7 H ABG pO2 ABG HCO3 ABG O2 Saturation ABG Base Excess ABG Hemoglobin 7.8 L ABG Oxyhemoglobin ABG Sodium ABG Potassium ABG Chloride 95.0 L ABG Glucose 251 H Oxyhemoglobin Carboxyhemoglobin Sodium Potassium Chloride Carbon Dioxide BUN Creatinine Glucose POC Glucose 243 H 263 H Lactic Acid Calcium Magnesium Ferritin Total Bilirubin Direct Bilirubin AST ALT Alkaline Phosphatase Lactate Dehydrogenase C-Reactive Protein Total Protein Albumin Triglycerides Lipase Arterial Blood Glucose 251 H Arterial Blood Ionized Calcium Urine WBC (Auto) Coronavirus (PCR) SARS-CoV-2 IgG Ab Crossmatch 06/18/20 06/18/20 06/19/20 17:31 23:33 04:32 WBC RBC Hgb Hct MCV MCH MCHC RDW Lymph % (Auto) [place] % (Auto) Lymph # (Auto) [place] # (Auto) Baso # (Auto) Seg Neutrophils % Seg Neuts % (Manual) Lymphocytes % (Manual) Nucleated RBC % Seg Neutrophils # Seg Neutrophils # Man Lymphocytes # (Manual) Monocytes # (Manual) Eosinophils # (Manual) PT INR APTT D-Dimer Heparin Anti-Xa Level ABG pH POC ABG pCO2 83.1 H POC ABG pO2 65.8 L ABG pO2 ABG HCO3 ABG O2 Saturation ABG Base Excess ABG Hemoglobin 8.9 L ABG Oxyhemoglobin ABG Sodium ABG Potassium ABG Chloride 96.0 L ABG Glucose 297 H Oxyhemoglobin Carboxyhemoglobin Sodium Potassium Chloride Carbon Dioxide BUN Creatinine Glucose POC Glucose 286 H 238 H Lactic Acid Calcium Magnesium Ferritin Total Bilirubin Direct Bilirubin AST ALT Alkaline Phosphatase Lactate Dehydrogenase C-Reactive Protein Total Protein Albumin Triglycerides Lipase Arterial Blood Glucose 297 H Arterial Blood Ionized Calcium Urine WBC (Auto) Coronavirus (PCR) SARS-CoV-2 IgG Ab Crossmatch 06/19/20 06/19/20 06/19/20 05:55 11:20 17:12 WBC RBC Hgb Hct MCV MCH MCHC RDW Lymph % (Auto) [place] % (Auto) Lymph # (Auto) [place] # (Auto) Baso # (Auto) Seg Neutrophils % Seg Neuts % (Manual) Lymphocytes % (Manual) Nucleated RBC % Seg Neutrophils # Seg Neutrophils # Man Lymphocytes # (Manual) Monocytes # (Manual) Eosinophils # (Manual) PT INR APTT D-Dimer Heparin Anti-Xa Level ABG pH POC ABG pCO2 POC ABG pO2 ABG pO2 ABG HCO3 ABG O2 Saturation ABG Base Excess ABG Hemoglobin ABG Oxyhemoglobin ABG Sodium ABG Potassium ABG Chloride ABG Glucose Oxyhemoglobin Carboxyhemoglobin Sodium Potassium Chloride Carbon Dioxide BUN Creatinine Glucose POC Glucose 274 H 282 H 298 H Lactic Acid Calcium Magnesium Ferritin Total Bilirubin Direct Bilirubin AST ALT Alkaline Phosphatase Lactate Dehydrogenase C-Reactive Protein Total Protein Albumin Triglycerides Lipase Arterial Blood Glucose Arterial Blood Ionized Calcium Urine WBC (Auto) Coronavirus (PCR) SARS-CoV-2 IgG Ab Crossmatch 06/19/20 06/20/20 06/20/20 23:08 03:33 06:01 WBC RBC Hgb Hct MCV MCH MCHC RDW Lymph % (Auto) [place] % (Auto) Lymph # (Auto) [place] # (Auto) Baso # (Auto) Seg Neutrophils % Seg Neuts % (Manual) Lymphocytes % (Manual) Nucleated RBC % Seg Neutrophils # Seg Neutrophils # Man Lymphocytes # (Manual) Monocytes # (Manual) Eosinophils # (Manual) PT INR APTT D-Dimer Heparin Anti-Xa Level ABG pH POC ABG pCO2 POC ABG pO2 ABG pO2 69.9 L ABG HCO3 50.8 H ABG O2 Saturation ABG Base Excess 24.2 H ABG Hemoglobin 5.8 L ABG Oxyhemoglobin ABG Sodium ABG Potassium ABG Chloride ABG Glucose Oxyhemoglobin Carboxyhemoglobin Sodium Potassium Chloride Carbon Dioxide BUN Creatinine Glucose POC Glucose 293 H 182 H Lactic Acid Calcium Magnesium Ferritin Total Bilirubin Direct Bilirubin AST ALT Alkaline Phosphatase Lactate Dehydrogenase C-Reactive Protein Total Protein Albumin Triglycerides Lipase Arterial Blood Glucose Arterial Blood Ionized Calcium Urine WBC (Auto) Coronavirus (PCR) SARS-CoV-2 IgG Ab Crossmatch 06/20/20 06/20/20 06/20/20 11:47 17:46 23:37 WBC RBC Hgb Hct MCV MCH MCHC RDW Lymph % (Auto) [place] % (Auto) Lymph # (Auto) [place] # (Auto) Baso # (Auto) Seg Neutrophils % Seg Neuts % (Manual) Lymphocytes % (Manual) Nucleated RBC % Seg Neutrophils # Seg Neutrophils # Man Lymphocytes # (Manual) Monocytes # (Manual) Eosinophils # (Manual) PT INR APTT D-Dimer Heparin Anti-Xa Level ABG pH POC ABG pCO2 POC ABG pO2 ABG pO2 ABG HCO3 ABG O2 Saturation ABG Base Excess ABG Hemoglobin ABG Oxyhemoglobin ABG Sodium ABG Potassium ABG Chloride ABG Glucose Oxyhemoglobin Carboxyhemoglobin Sodium Potassium Chloride Carbon Dioxide BUN Creatinine Glucose POC Glucose 170 H 215 H 256 H Lactic Acid Calcium Magnesium Ferritin Total Bilirubin Direct Bilirubin AST ALT Alkaline Phosphatase Lactate Dehydrogenase C-Reactive Protein Total Protein Albumin Triglycerides Lipase Arterial Blood Glucose Arterial Blood Ionized Calcium Urine WBC (Auto) Coronavirus (PCR) SARS-CoV-2 IgG Ab Crossmatch 06/21/20 06/21/20 06/21/20 04:00 05:14 05:51 WBC RBC Hgb Hct MCV MCH MCHC RDW Lymph % (Auto) [place] % (Auto) Lymph # (Auto) [place] # (Auto) Baso # (Auto) Seg Neutrophils % Seg Neuts % (Manual) Lymphocytes % (Manual) Nucleated RBC % Seg Neutrophils # Seg Neutrophils # Man Lymphocytes # (Manual) Monocytes # (Manual) Eosinophils # (Manual) PT INR APTT D-Dimer Heparin Anti-Xa Level ABG pH 7.474 H POC ABG pCO2 POC ABG pO2 ABG pO2 ABG HCO3 52.1 H ABG O2 Saturation ABG Base Excess 23.3 H ABG Hemoglobin 5.3 L ABG Oxyhemoglobin ABG Sodium ABG Potassium ABG Chloride ABG Glucose Oxyhemoglobin 93.8 L Carboxyhemoglobin Sodium Potassium Chloride Carbon Dioxide BUN Creatinine Glucose POC Glucose 122 H 129 H Lactic Acid Calcium Magnesium Ferritin Total Bilirubin Direct Bilirubin AST ALT Alkaline Phosphatase Lactate Dehydrogenase C-Reactive Protein Total Protein Albumin Triglycerides Lipase Arterial Blood Glucose Arterial Blood Ionized Calcium Urine WBC (Auto) Coronavirus (PCR) SARS-CoV-2 IgG Ab Crossmatch 06/21/20 06/21/20 06/21/20 11:00 11:00 11:42 WBC 14.2 H RBC 1.85 L Hgb 6.2 L Hct 19.5 L* MCV 105 H MCH 34 H MCHC RDW 18.0 H Lymph % (Auto) [place] % (Auto) Lymph # (Auto) [place] # (Auto) Baso # (Auto) Seg Neutrophils % Seg Neuts % (Manual) Lymphocytes % (Manual) Nucleated RBC % Seg Neutrophils # Seg Neutrophils # Man Lymphocytes # (Manual) Monocytes # (Manual) Eosinophils # (Manual) PT INR APTT D-Dimer Heparin Anti-Xa Level ABG pH POC ABG pCO2 POC ABG pO2 ABG pO2 ABG HCO3 ABG O2 Saturation ABG Base Excess ABG Hemoglobin ABG Oxyhemoglobin ABG Sodium ABG Potassium ABG Chloride ABG Glucose Oxyhemoglobin Carboxyhemoglobin Sodium 147 H Potassium Chloride Carbon Dioxide 51 H* BUN 31 H Creatinine 0.5 L Glucose 224 H POC Glucose 217 H Lactic Acid Calcium Magnesium Ferritin Total Bilirubin Direct Bilirubin AST ALT Alkaline Phosphatase Lactate Dehydrogenase C-Reactive Protein Total Protein Albumin Triglycerides Lipase Arterial Blood Glucose Arterial Blood Ionized Calcium Urine WBC (Auto) Coronavirus (PCR) SARS-CoV-2 IgG Ab Crossmatch 06/21/20 06/21/20 06/21/20 14:18 14:30 18:36 WBC RBC Hgb Hct MCV MCH MCHC RDW Lymph % (Auto) [place] % (Auto) Lymph # (Auto) [place] # (Auto) Baso # (Auto) Seg Neutrophils % Seg Neuts % (Manual) Lymphocytes % (Manual) Nucleated RBC % Seg Neutrophils # Seg Neutrophils # Man Lymphocytes # (Manual) Monocytes # (Manual) Eosinophils # (Manual) PT 15.1 H INR 1.19 H APTT D-Dimer Heparin Anti-Xa Level ABG pH POC ABG pCO2 POC ABG pO2 ABG pO2 ABG HCO3 ABG O2 Saturation ABG Base Excess ABG Hemoglobin ABG Oxyhemoglobin ABG Sodium ABG Potassium ABG Chloride ABG Glucose Oxyhemoglobin Carboxyhemoglobin Sodium Potassium Chloride Carbon Dioxide BUN Creatinine Glucose POC Glucose 185 H Lactic Acid Calcium Magnesium Ferritin Total Bilirubin Direct Bilirubin AST ALT Alkaline Phosphatase Lactate Dehydrogenase C-Reactive Protein Total Protein Albumin Triglycerides Lipase Arterial Blood Glucose Arterial Blood Ionized Calcium Urine WBC (Auto) Coronavirus (PCR) SARS-CoV-2 IgG Ab Crossmatch See Detail 06/21/20 06/22/20 06/22/20 21:14 03:50 04:00 WBC RBC Hgb Hct MCV MCH MCHC RDW Lymph % (Auto) [place] % (Auto) Lymph # (Auto) [place] # (Auto) Baso # (Auto) Seg Neutrophils % Seg Neuts % (Manual) Lymphocytes % (Manual) Nucleated RBC % Seg Neutrophils # Seg Neutrophils # Man Lymphocytes # (Manual) Monocytes # (Manual) Eosinophils # (Manual) PT INR APTT D-Dimer Heparin Anti-Xa Level ABG pH 7.451 H POC ABG pCO2 POC ABG pO2 ABG pO2 ABG HCO3 47.5 H ABG O2 Saturation ABG Base Excess 22.0 H ABG Hemoglobin < 5.1 L ABG Oxyhemoglobin ABG Sodium ABG Potassium ABG Chloride ABG Glucose Oxyhemoglobin 94.1 L Carboxyhemoglobin Sodium 149 H Potassium 3.5 L Chloride Carbon Dioxide 42 H* D BUN 34 H Creatinine 0.4 L Glucose 219 H POC Glucose 250 H Lactic Acid Calcium Magnesium Ferritin Total Bilirubin Direct Bilirubin AST ALT Alkaline Phosphatase Lactate Dehydrogenase C-Reactive Protein Total Protein Albumin Triglycerides Lipase Arterial Blood Glucose Arterial Blood Ionized Calcium Urine WBC (Auto) Coronavirus (PCR) SARS-CoV-2 IgG Ab Crossmatch 06/22/20 06/22/20 06/22/20 12:16 14:29 17:56 WBC RBC Hgb Hct MCV MCH MCHC RDW Lymph % (Auto) [place] % (Auto) Lymph # (Auto) [place] # (Auto) Baso # (Auto) Seg Neutrophils % Seg Neuts % (Manual) Lymphocytes % (Manual) Nucleated RBC % Seg Neutrophils # Seg Neutrophils # Man Lymphocytes # (Manual) Monocytes # (Manual) Eosinophils # (Manual) PT 11.8 L INR APTT 23.5 L D-Dimer Heparin Anti-Xa Level ABG pH POC ABG pCO2 POC ABG pO2 ABG pO2 ABG HCO3 ABG O2 Saturation ABG Base Excess ABG Hemoglobin ABG Oxyhemoglobin ABG Sodium ABG Potassium ABG Chloride ABG Glucose Oxyhemoglobin Carboxyhemoglobin Sodium Potassium Chloride Carbon Dioxide BUN Creatinine Glucose POC Glucose 215 H 215 H Lactic Acid Calcium Magnesium Ferritin Total Bilirubin Direct Bilirubin AST ALT Alkaline Phosphatase Lactate Dehydrogenase C-Reactive Protein Total Protein Albumin Triglycerides Lipase Arterial Blood Glucose Arterial Blood Ionized Calcium Urine WBC (Auto) Coronavirus (PCR) SARS-CoV-2 IgG Ab Crossmatch 06/22/20 06/22/20 06/22/20 23:36 23:45 Unknown WBC 14.1 H RBC 2.70 L Hgb 8.9 L 8.9 L Hct 26.9 L 27.2 L D MCV 101 H MCH 33 H MCHC RDW 17.7 H Lymph % (Auto) [place] % (Auto) Lymph # (Auto) [place] # (Auto) Baso # (Auto) Seg Neutrophils % Seg Neuts % (Manual) 92.0 H Lymphocytes % (Manual) 5.0 L Nucleated RBC % Seg Neutrophils # Seg Neutrophils # Man 13.0 H Lymphocytes # (Manual) 0.7 L Monocytes # (Manual) Eosinophils # (Manual) PT INR APTT D-Dimer Heparin Anti-Xa Level ABG pH POC ABG pCO2 POC ABG pO2 ABG pO2 ABG HCO3 ABG O2 Saturation ABG Base Excess ABG Hemoglobin ABG Oxyhemoglobin ABG Sodium ABG Potassium ABG Chloride ABG Glucose Oxyhemoglobin Carboxyhemoglobin Sodium Potassium Chloride Carbon Dioxide BUN Creatinine Glucose POC Glucose 208 H Lactic Acid Calcium Magnesium Ferritin Total Bilirubin Direct Bilirubin AST ALT Alkaline Phosphatase Lactate Dehydrogenase C-Reactive Protein Total Protein Albumin Triglycerides Lipase Arterial Blood Glucose Arterial Blood Ionized Calcium Urine WBC (Auto) Coronavirus (PCR) SARS-CoV-2 IgG Ab Crossmatch 06/23/20 06/23/20 06/23/20 05:17 05:19 06:50 WBC RBC Hgb Hct MCV MCH MCHC RDW Lymph % (Auto) [place] % (Auto) Lymph # (Auto) [place] # (Auto) Baso # (Auto) Seg Neutrophils % Seg Neuts % (Manual) Lymphocytes % (Manual) Nucleated RBC % Seg Neutrophils # Seg Neutrophils # Man Lymphocytes # (Manual) Monocytes # (Manual) Eosinophils # (Manual) PT INR APTT D-Dimer Heparin Anti-Xa Level ABG pH POC ABG pCO2 69.7 H POC ABG pO2 63.3 L ABG pO2 ABG HCO3 ABG O2 Saturation ABG Base Excess ABG Hemoglobin 10.1 L ABG Oxyhemoglobin ABG Sodium ABG Potassium 3.3 L ABG Chloride ABG Glucose 226 H Oxyhemoglobin Carboxyhemoglobin Sodium Potassium 3.0 L Chloride Carbon Dioxide 41 H* BUN 26 H Creatinine 0.4 L Glucose 209 H POC Glucose 200 H Lactic Acid Calcium Magnesium Ferritin Total Bilirubin Direct Bilirubin AST ALT Alkaline Phosphatase Lactate Dehydrogenase C-Reactive Protein Total Protein Albumin 2.9 L Triglycerides Lipase Arterial Blood Glucose 226 H Arterial Blood Ionized Calcium Urine WBC (Auto) Coronavirus (PCR) SARS-CoV-2 IgG Ab Crossmatch 06/23/20 06/23/20 06/23/20 09:41 12:04 18:16 WBC RBC Hgb 9.1 L Hct 28.0 L MCV MCH MCHC RDW Lymph % (Auto) [place] % (Auto) Lymph # (Auto) [place] # (Auto) Baso # (Auto) Seg Neutrophils % Seg Neuts % (Manual) Lymphocytes % (Manual) Nucleated RBC % Seg Neutrophils # Seg Neutrophils # Man Lymphocytes # (Manual) Monocytes # (Manual) Eosinophils # (Manual) PT INR APTT D-Dimer Heparin Anti-Xa Level ABG pH POC ABG pCO2 POC ABG pO2 ABG pO2 ABG HCO3 ABG O2 Saturation ABG Base Excess ABG Hemoglobin ABG Oxyhemoglobin ABG Sodium ABG Potassium ABG Chloride ABG Glucose Oxyhemoglobin Carboxyhemoglobin Sodium Potassium Chloride Carbon Dioxide BUN Creatinine Glucose POC Glucose 146 H 162 H Lactic Acid Calcium Magnesium Ferritin Total Bilirubin Direct Bilirubin AST ALT Alkaline Phosphatase Lactate Dehydrogenase C-Reactive Protein Total Protein Albumin Triglycerides Lipase Arterial Blood Glucose Arterial Blood Ionized Calcium Urine WBC (Auto) Coronavirus (PCR) SARS-CoV-2 IgG Ab Crossmatch 06/23/20 06/23/20 06/24/20 23:24 23:41 02:39 WBC RBC Hgb 8.2 L 8.8 L Hct 24.9 L 26.8 L MCV MCH MCHC RDW Lymph % (Auto) [place] % (Auto) Lymph # (Auto) [place] # (Auto) Baso # (Auto) Seg Neutrophils % Seg Neuts % (Manual) Lymphocytes % (Manual) Nucleated RBC % Seg Neutrophils # Seg Neutrophils # Man Lymphocytes # (Manual) Monocytes # (Manual) Eosinophils # (Manual) PT INR APTT D-Dimer Heparin Anti-Xa Level ABG pH POC ABG pCO2 POC ABG pO2 ABG pO2 ABG HCO3 ABG O2 Saturation ABG Base Excess ABG Hemoglobin ABG Oxyhemoglobin ABG Sodium ABG Potassium ABG Chloride ABG Glucose Oxyhemoglobin Carboxyhemoglobin Sodium Potassium Chloride Carbon Dioxide BUN Creatinine Glucose POC Glucose 248 H Lactic Acid Calcium Magnesium Ferritin Total Bilirubin Direct Bilirubin AST ALT Alkaline Phosphatase Lactate Dehydrogenase C-Reactive Protein Total Protein Albumin Triglycerides Lipase Arterial Blood Glucose Arterial Blood Ionized Calcium Urine WBC (Auto) Coronavirus (PCR) SARS-CoV-2 IgG Ab Crossmatch 06/24/20 06/24/20 06/24/20 02:39 02:45 05:31 WBC RBC Hgb Hct MCV MCH MCHC RDW Lymph % (Auto) [place] % (Auto) Lymph # (Auto) [place] # (Auto) Baso # (Auto) Seg Neutrophils % Seg Neuts % (Manual) Lymphocytes % (Manual) Nucleated RBC % Seg Neutrophils # Seg Neutrophils # Man Lymphocytes # (Manual) Monocytes # (Manual) Eosinophils # (Manual) PT INR APTT D-Dimer Heparin Anti-Xa Level ABG pH POC ABG pCO2 66.9 H POC ABG pO2 109.7 H ABG pO2 ABG HCO3 ABG O2 Saturation ABG Base Excess ABG Hemoglobin 9.7 L ABG Oxyhemoglobin ABG Sodium 135.0 L ABG Potassium ABG Chloride 97.0 L ABG Glucose 277 H Oxyhemoglobin Carboxyhemoglobin Sodium 136 L Potassium Chloride 95.0 L Carbon Dioxide 34 H D BUN 24 H Creatinine 0.3 L Glucose 260 H POC Glucose 164 H Lactic Acid Calcium Magnesium Ferritin Total Bilirubin Direct Bilirubin AST ALT Alkaline Phosphatase Lactate Dehydrogenase C-Reactive Protein Total Protein 5.2 L Albumin 2.6 L Triglycerides Lipase Arterial Blood Glucose 277 H Arterial Blood Ionized Calcium Urine WBC (Auto) Coronavirus (PCR) SARS-CoV-2 IgG Ab Crossmatch 06/24/20 06/24/20 06/24/20 10:00 11:49 17:39 WBC RBC Hgb 8.9 L Hct 26.5 L MCV MCH MCHC RDW Lymph % (Auto) [place] % (Auto) Lymph # (Auto) [place] # (Auto) Baso # (Auto) Seg Neutrophils % Seg Neuts % (Manual) Lymphocytes % (Manual) Nucleated RBC % Seg Neutrophils # Seg Neutrophils # Man Lymphocytes # (Manual) Monocytes # (Manual) Eosinophils # (Manual) PT INR APTT D-Dimer Heparin Anti-Xa Level ABG pH POC ABG pCO2 POC ABG pO2 ABG pO2 ABG HCO3 ABG O2 Saturation ABG Base Excess ABG Hemoglobin ABG Oxyhemoglobin ABG Sodium ABG Potassium ABG Chloride ABG Glucose Oxyhemoglobin Carboxyhemoglobin Sodium Potassium Chloride Carbon Dioxide BUN Creatinine Glucose POC Glucose 198 H 223 H Lactic Acid Calcium Magnesium Ferritin Total Bilirubin Direct Bilirubin AST ALT Alkaline Phosphatase Lactate Dehydrogenase C-Reactive Protein Total Protein Albumin Triglycerides Lipase Arterial Blood Glucose Arterial Blood Ionized Calcium Urine WBC (Auto) Coronavirus (PCR) SARS-CoV-2 IgG Ab Crossmatch 06/24/20 06/25/20 06/25/20 23:56 02:16 04:08 WBC RBC Hgb Hct MCV MCH MCHC RDW Lymph % (Auto) [place] % (Auto) Lymph # (Auto) [place] # (Auto) Baso # (Auto) Seg Neutrophils % Seg Neuts % (Manual) Lymphocytes % (Manual) Nucleated RBC % Seg Neutrophils # Seg Neutrophils # Man Lymphocytes # (Manual) Monocytes # (Manual) Eosinophils # (Manual) PT INR APTT D-Dimer Heparin Anti-Xa Level ABG pH 7.454 H POC ABG pCO2 56.9 H POC ABG pO2 61.0 L ABG pO2 ABG HCO3 ABG O2 Saturation ABG Base Excess ABG Hemoglobin ABG Oxyhemoglobin ABG Sodium 134.3 L ABG Potassium ABG Chloride 92.0 L ABG Glucose 246 H Oxyhemoglobin Carboxyhemoglobin Sodium 134 L Potassium Chloride 89.7 L Carbon Dioxide 36 H BUN Creatinine 0.3 L Glucose 254 H POC Glucose 225 H Lactic Acid Calcium Magnesium Ferritin Total Bilirubin Direct Bilirubin AST ALT Alkaline Phosphatase Lactate Dehydrogenase C-Reactive Protein Total Protein Albumin 2.9 L Triglycerides Lipase Arterial Blood Glucose 246 H Arterial Blood Ionized Calcium Urine WBC (Auto) Coronavirus (PCR) SARS-CoV-2 IgG Ab Crossmatch 06/25/20 06/25/20 06/25/20 05:44 11:35 17:33 WBC RBC Hgb Hct MCV MCH MCHC RDW Lymph % (Auto) [place] % (Auto) Lymph # (Auto) [place] # (Auto) Baso # (Auto) Seg Neutrophils % Seg Neuts % (Manual) Lymphocytes % (Manual) Nucleated RBC % Seg Neutrophils # Seg Neutrophils # Man Lymphocytes # (Manual) Monocytes # (Manual) Eosinophils # (Manual) PT INR APTT D-Dimer Heparin Anti-Xa Level ABG pH POC ABG pCO2 POC ABG pO2 ABG pO2 ABG HCO3 ABG O2 Saturation ABG Base Excess ABG Hemoglobin ABG Oxyhemoglobin ABG Sodium ABG Potassium ABG Chloride ABG Glucose Oxyhemoglobin Carboxyhemoglobin Sodium Potassium Chloride Carbon Dioxide BUN Creatinine Glucose POC Glucose 170 H 175 H 229 H Lactic Acid Calcium Magnesium Ferritin Total Bilirubin Direct Bilirubin AST ALT Alkaline Phosphatase Lactate Dehydrogenase C-Reactive Protein Total Protein Albumin Triglycerides Lipase Arterial Blood Glucose Arterial Blood Ionized Calcium Urine WBC (Auto) Coronavirus (PCR) SARS-CoV-2 IgG Ab Crossmatch 06/25/20 06/26/20 06/26/20 23:55 02:17 02:17 WBC RBC Hgb 10.0 L Hct 30.4 L MCV MCH MCHC RDW Lymph % (Auto) [place] % (Auto) Lymph # (Auto) [place] # (Auto) Baso # (Auto) Seg Neutrophils % Seg Neuts % (Manual) Lymphocytes % (Manual) Nucleated RBC % Seg Neutrophils # Seg Neutrophils # Man Lymphocytes # (Manual) Monocytes # (Manual) Eosinophils # (Manual) PT INR APTT D-Dimer Heparin Anti-Xa Level ABG pH POC ABG pCO2 POC ABG pO2 ABG pO2 ABG HCO3 ABG O2 Saturation ABG Base Excess ABG Hemoglobin ABG Oxyhemoglobin ABG Sodium ABG Potassium ABG Chloride ABG Glucose Oxyhemoglobin Carboxyhemoglobin Sodium 136 L Potassium Chloride 90.1 L Carbon Dioxide 39 H BUN Creatinine 0.2 L Glucose 232 H POC Glucose 192 H Lactic Acid Calcium Magnesium Ferritin Total Bilirubin Direct Bilirubin AST ALT Alkaline Phosphatase Lactate Dehydrogenase C-Reactive Protein Total Protein 6.1 L Albumin 2.9 L Triglycerides Lipase Arterial Blood Glucose Arterial Blood Ionized Calcium Urine WBC (Auto) Coronavirus (PCR) SARS-CoV-2 IgG Ab Crossmatch 06/26/20 06/26/20 06/26/20 04:15 04:49 05:28 WBC RBC Hgb Hct MCV MCH MCHC RDW Lymph % (Auto) [place] % (Auto) Lymph # (Auto) [place] # (Auto) Baso # (Auto) Seg Neutrophils % Seg Neuts % (Manual) Lymphocytes % (Manual) Nucleated RBC % Seg Neutrophils # Seg Neutrophils # Man Lymphocytes # (Manual) Monocytes # (Manual) Eosinophils # (Manual) PT INR APTT D-Dimer Heparin Anti-Xa Level ABG pH 7.453 H POC ABG pCO2 59.6 H POC ABG pO2 ABG pO2 ABG HCO3 ABG O2 Saturation ABG Base Excess ABG Hemoglobin 10.0 L ABG Oxyhemoglobin ABG Sodium 134.2 L ABG Potassium 3.3 L ABG Chloride 92.0 L ABG Glucose 305 H Oxyhemoglobin Carboxyhemoglobin Sodium Potassium Chloride Carbon Dioxide BUN Creatinine Glucose POC Glucose 234 H Lactic Acid Calcium Magnesium Ferritin Total Bilirubin Direct Bilirubin AST ALT Alkaline Phosphatase Lactate Dehydrogenase C-Reactive Protein Total Protein Albumin Triglycerides 203 H Lipase Arterial Blood Glucose 305 H Arterial Blood Ionized Calcium Urine WBC (Auto) Coronavirus (PCR) SARS-CoV-2 IgG Ab Crossmatch 06/26/20 06/26/20 06/26/20 11:58 17:58 21:32 WBC RBC Hgb Hct MCV MCH MCHC RDW Lymph % (Auto) [place] % (Auto) Lymph # (Auto) [place] # (Auto) Baso # (Auto) Seg Neutrophils % Seg Neuts % (Manual) Lymphocytes % (Manual) Nucleated RBC % Seg Neutrophils # Seg Neutrophils # Man Lymphocytes # (Manual) Monocytes # (Manual) Eosinophils # (Manual) PT INR APTT D-Dimer Heparin Anti-Xa Level ABG pH POC ABG pCO2 POC ABG pO2 ABG pO2 ABG HCO3 ABG O2 Saturation ABG Base Excess ABG Hemoglobin ABG Oxyhemoglobin ABG Sodium ABG Potassium ABG Chloride ABG Glucose Oxyhemoglobin Carboxyhemoglobin Sodium Potassium Chloride Carbon Dioxide BUN Creatinine Glucose POC Glucose 198 H 193 H 191 H Lactic Acid Calcium Magnesium Ferritin Total Bilirubin Direct Bilirubin AST ALT Alkaline Phosphatase Lactate Dehydrogenase C-Reactive Protein Total Protein Albumin Triglycerides Lipase Arterial Blood Glucose Arterial Blood Ionized Calcium Urine WBC (Auto) Coronavirus (PCR) SARS-CoV-2 IgG Ab Crossmatch 06/26/20 06/27/20 06/27/20 23:40 04:35 05:32 WBC RBC Hgb Hct MCV MCH MCHC RDW Lymph % (Auto) [place] % (Auto) Lymph # (Auto) [place] # (Auto) Baso # (Auto) Seg Neutrophils % Seg Neuts % (Manual) Lymphocytes % (Manual) Nucleated RBC % Seg Neutrophils # Seg Neutrophils # Man Lymphocytes # (Manual) Monocytes # (Manual) Eosinophils # (Manual) PT INR APTT D-Dimer Heparin Anti-Xa Level ABG pH 7.464 H POC ABG pCO2 60.8 H POC ABG pO2 ABG pO2 ABG HCO3 ABG O2 Saturation ABG Base Excess ABG Hemoglobin 10.1 L ABG Oxyhemoglobin ABG Sodium ABG Potassium 2.9 L ABG Chloride 92.0 L ABG Glucose 298 H Oxyhemoglobin Carboxyhemoglobin Sodium Potassium Chloride Carbon Dioxide BUN Creatinine Glucose POC Glucose 241 H 211 H Lactic Acid Calcium Magnesium Ferritin Total Bilirubin Direct Bilirubin AST ALT Alkaline Phosphatase Lactate Dehydrogenase C-Reactive Protein Total Protein Albumin Triglycerides Lipase Arterial Blood Glucose 298 H Arterial Blood Ionized Calcium Urine WBC (Auto) Coronavirus (PCR) SARS-CoV-2 IgG Ab Crossmatch 06/27/20 06/27/20 06/27/20 12:37 18:08 20:52 WBC RBC Hgb Hct MCV MCH MCHC RDW Lymph % (Auto) [place] % (Auto) Lymph # (Auto) [place] # (Auto) Baso # (Auto) Seg Neutrophils % Seg Neuts % (Manual) Lymphocytes % (Manual) Nucleated RBC % Seg Neutrophils # Seg Neutrophils # Man Lymphocytes # (Manual) Monocytes # (Manual) Eosinophils # (Manual) PT INR APTT D-Dimer Heparin Anti-Xa Level ABG pH POC ABG pCO2 POC ABG pO2 ABG pO2 ABG HCO3 ABG O2 Saturation ABG Base Excess ABG Hemoglobin ABG Oxyhemoglobin ABG Sodium ABG Potassium ABG Chloride ABG Glucose Oxyhemoglobin Carboxyhemoglobin Sodium Potassium Chloride Carbon Dioxide BUN Creatinine Glucose POC Glucose 182 H 197 H 195 H Lactic Acid Calcium Magnesium Ferritin Total Bilirubin Direct Bilirubin AST ALT Alkaline Phosphatase Lactate Dehydrogenase C-Reactive Protein Total Protein Albumin Triglycerides Lipase Arterial Blood Glucose Arterial Blood Ionized Calcium Urine WBC (Auto) Coronavirus (PCR) SARS-CoV-2 IgG Ab Crossmatch 06/27/20 06/28/20 06/28/20 Unknown 04:17 04:50 WBC RBC Hgb Hct MCV MCH MCHC RDW Lymph % (Auto) [place] % (Auto) Lymph # (Auto) [place] # (Auto) Baso # (Auto) Seg Neutrophils % Seg Neuts % (Manual) Lymphocytes % (Manual) Nucleated RBC % Seg Neutrophils # Seg Neutrophils # Man Lymphocytes # (Manual) Monocytes # (Manual) Eosinophils # (Manual) PT INR APTT D-Dimer Heparin Anti-Xa Level ABG pH POC ABG pCO2 58.6 H POC ABG pO2 60.1 L ABG pO2 ABG HCO3 ABG O2 Saturation ABG Base Excess ABG Hemoglobin 10.0 L ABG Oxyhemoglobin ABG Sodium 125.3 L ABG Potassium ABG Chloride 93.0 L ABG Glucose 308 H Oxyhemoglobin Carboxyhemoglobin Sodium Potassium 2.9 L* Chloride 93.4 L Carbon Dioxide 42 H* BUN Creatinine 0.3 L Glucose 211 H POC Glucose 252 H Lactic Acid Calcium 8.1 L Magnesium Ferritin Total Bilirubin Direct Bilirubin AST ALT Alkaline Phosphatase Lactate Dehydrogenase C-Reactive Protein Total Protein 5.1 L Albumin 2.4 L Triglycerides Lipase Arterial Blood Glucose 308 H Arterial Blood Ionized Calcium Urine WBC (Auto) Coronavirus (PCR) SARS-CoV-2 IgG Ab Crossmatch 06/28/20 06/28/20 06/28/20 06:35 06:35 11:36 WBC 18.9 H RBC 2.85 L Hgb 9.5 L Hct 28.4 L MCV 100 H MCH 33 H MCHC RDW 17.3 H Lymph % (Auto) [place] % (Auto) Lymph # (Auto) [place] # (Auto) Baso # (Auto) Seg Neutrophils % 88.6 H Seg Neuts % (Manual) 95.0 H Lymphocytes % (Manual) 1.0 L Nucleated RBC % Seg Neutrophils # 15.9 H Seg Neutrophils # Man 18.0 H Lymphocytes # (Manual) 0.2 L Monocytes # (Manual) Eosinophils # (Manual) PT INR APTT D-Dimer Heparin Anti-Xa Level ABG pH POC ABG pCO2 POC ABG pO2 ABG pO2 ABG HCO3 ABG O2 Saturation ABG Base Excess ABG Hemoglobin ABG Oxyhemoglobin ABG Sodium ABG Potassium ABG Chloride ABG Glucose Oxyhemoglobin Carboxyhemoglobin Sodium Potassium Chloride 94.2 L Carbon Dioxide 38 H BUN Creatinine 0.3 L Glucose 228 H POC Glucose 243 H Lactic Acid Calcium Magnesium Ferritin Total Bilirubin Direct Bilirubin AST ALT Alkaline Phosphatase Lactate Dehydrogenase C-Reactive Protein Total Protein 6.1 L Albumin 2.7 L Triglycerides Lipase Arterial Blood Glucose Arterial Blood Ionized Calcium Urine WBC (Auto) Coronavirus (PCR) SARS-CoV-2 IgG Ab Crossmatch 06/28/20 06/28/20 06/29/20 16:53 21:10 00:06 WBC RBC Hgb Hct MCV MCH MCHC RDW Lymph % (Auto) [place] % (Auto) Lymph # (Auto) [place] # (Auto) Baso # (Auto) Seg Neutrophils % Seg Neuts % (Manual) Lymphocytes % (Manual) Nucleated RBC % Seg Neutrophils # Seg Neutrophils # Man Lymphocytes # (Manual) Monocytes # (Manual) Eosinophils # (Manual) PT INR APTT D-Dimer Heparin Anti-Xa Level ABG pH POC ABG pCO2 POC ABG pO2 ABG pO2 ABG HCO3 ABG O2 Saturation ABG Base Excess ABG Hemoglobin ABG Oxyhemoglobin ABG Sodium ABG Potassium ABG Chloride ABG Glucose Oxyhemoglobin Carboxyhemoglobin Sodium Potassium Chloride Carbon Dioxide BUN Creatinine Glucose POC Glucose 211 H 195 H 200 H Lactic Acid Calcium Magnesium Ferritin Total Bilirubin Direct Bilirubin AST ALT Alkaline Phosphatase Lactate Dehydrogenase C-Reactive Protein Total Protein Albumin Triglycerides Lipase Arterial Blood Glucose Arterial Blood Ionized Calcium Urine WBC (Auto) Coronavirus (PCR) SARS-CoV-2 IgG Ab Crossmatch 06/29/20 06/29/20 06/29/20 03:11 04:00 04:00 WBC 18.8 H RBC 2.82 L Hgb 10.1 L Hct 28.5 L MCV 101 H MCH 36 H MCHC 36 H RDW 17.5 H Lymph % (Auto) 10.7 L [place] % (Auto) Lymph # (Auto) [place] # (Auto) 1.0 H Baso # (Auto) 0.3 H Seg Neutrophils % 82.2 H Seg Neuts % (Manual) Lymphocytes % (Manual) Nucleated RBC % Seg Neutrophils # 15.5 H Seg Neutrophils # Man Lymphocytes # (Manual) Monocytes # (Manual) Eosinophils # (Manual) PT INR APTT D-Dimer Heparin Anti-Xa Level ABG pH POC ABG pCO2 57.5 H POC ABG pO2 69.1 L ABG pO2 ABG HCO3 ABG O2 Saturation ABG Base Excess ABG Hemoglobin 10.2 L ABG Oxyhemoglobin 92.3 L ABG Sodium 130.7 L ABG Potassium 3.2 L ABG Chloride 93.0 L ABG Glucose 228 H Oxyhemoglobin Carboxyhemoglobin Sodium 134 L Potassium 3.3 L Chloride 89.5 L Carbon Dioxide 40 H BUN Creatinine 0.2 L Glucose 190 H POC Glucose Lactic Acid Calcium Magnesium Ferritin Total Bilirubin Direct Bilirubin AST < 5 L ALT < 5 L Alkaline Phosphatase Lactate Dehydrogenase C-Reactive Protein Total Protein 5.9 L Albumin 2.2 L Triglycerides Lipase Arterial Blood Glucose 228 H Arterial Blood Ionized Calcium Urine WBC (Auto) Coronavirus (PCR) SARS-CoV-2 IgG Ab Crossmatch 06/29/20 06/29/20 06/29/20 05:00 05:23 09:36 WBC RBC Hgb Hct MCV MCH MCHC RDW Lymph % (Auto) [place] % (Auto) Lymph # (Auto) [place] # (Auto) Baso # (Auto) Seg Neutrophils % Seg Neuts % (Manual) Lymphocytes % (Manual) Nucleated RBC % Seg Neutrophils # Seg Neutrophils # Man Lymphocytes # (Manual) Monocytes # (Manual) Eosinophils # (Manual) PT INR APTT D-Dimer Heparin Anti-Xa Level ABG pH POC ABG pCO2 POC ABG pO2 ABG pO2 ABG HCO3 ABG O2 Saturation ABG Base Excess ABG Hemoglobin ABG Oxyhemoglobin ABG Sodium ABG Potassium ABG Chloride ABG Glucose Oxyhemoglobin Carboxyhemoglobin Sodium Potassium Chloride Carbon Dioxide BUN Creatinine Glucose POC Glucose 165 H Lactic Acid Calcium Magnesium Ferritin Total Bilirubin Direct Bilirubin AST ALT Alkaline Phosphatase Lactate Dehydrogenase C-Reactive Protein Total Protein Albumin Triglycerides 1544 H 1799 H Lipase Arterial Blood Glucose Arterial Blood Ionized Calcium Urine WBC (Auto) Coronavirus (PCR) SARS-CoV-2 IgG Ab Crossmatch 06/29/20 06/29/20 06/29/20 09:36 12:02 18:00 WBC RBC Hgb Hct MCV MCH MCHC RDW Lymph % (Auto) [place] % (Auto) Lymph # (Auto) [place] # (Auto) Baso # (Auto) Seg Neutrophils % Seg Neuts % (Manual) Lymphocytes % (Manual) Nucleated RBC % Seg Neutrophils # Seg Neutrophils # Man Lymphocytes # (Manual) Monocytes # (Manual) Eosinophils # (Manual) PT INR APTT D-Dimer Heparin Anti-Xa Level ABG pH POC ABG pCO2 POC ABG pO2 ABG pO2 ABG HCO3 ABG O2 Saturation ABG Base Excess ABG Hemoglobin ABG Oxyhemoglobin ABG Sodium ABG Potassium ABG Chloride ABG Glucose Oxyhemoglobin Carboxyhemoglobin Sodium Potassium Chloride Carbon Dioxide BUN Creatinine Glucose POC Glucose 197 H 187 H Lactic Acid Calcium Magnesium Ferritin Total Bilirubin Direct Bilirubin AST ALT Alkaline Phosphatase Lactate Dehydrogenase C-Reactive Protein Total Protein Albumin Triglycerides Lipase 86 H Arterial Blood Glucose Arterial Blood Ionized Calcium Urine WBC (Auto) Coronavirus (PCR) SARS-CoV-2 IgG Ab Crossmatch 06/29/20 06/30/20 06/30/20 23:33 03:46 05:50 WBC RBC Hgb Hct MCV MCH MCHC RDW Lymph % (Auto) [place] % (Auto) Lymph # (Auto) [place] # (Auto) Baso # (Auto) Seg Neutrophils % Seg Neuts % (Manual) Lymphocytes % (Manual) Nucleated RBC % Seg Neutrophils # Seg Neutrophils # Man Lymphocytes # (Manual) Monocytes # (Manual) Eosinophils # (Manual) PT INR APTT D-Dimer Heparin Anti-Xa Level ABG pH 7.466 H POC ABG pCO2 57.3 H POC ABG pO2 66.1 L ABG pO2 ABG HCO3 ABG O2 Saturation ABG Base Excess ABG Hemoglobin 10.2 L ABG Oxyhemoglobin 92.3 L ABG Sodium 134.4 L ABG Potassium 3.2 L ABG Chloride 94.0 L ABG Glucose 178 H Oxyhemoglobin Carboxyhemoglobin Sodium Potassium Chloride Carbon Dioxide BUN Creatinine Glucose POC Glucose 170 H 170 H Lactic Acid Calcium Magnesium Ferritin Total Bilirubin Direct Bilirubin AST ALT Alkaline Phosphatase Lactate Dehydrogenase C-Reactive Protein Total Protein Albumin Triglycerides Lipase Arterial Blood Glucose 178 H Arterial Blood Ionized Calcium Urine WBC (Auto) Coronavirus (PCR) SARS-CoV-2 IgG Ab Crossmatch 06/30/20 06/30/20 06/30/20 07:00 07:00 12:04 WBC 15.6 H RBC 2.91 L Hgb 9.8 L Hct 29.7 L MCV 102 H MCH 34 H MCHC RDW 17.8 H Lymph % (Auto) [place] % (Auto) Lymph # (Auto) [place] # (Auto) Baso # (Auto) Seg Neutrophils % Seg Neuts % (Manual) Lymphocytes % (Manual) 5.0 L Nucleated RBC % Seg Neutrophils # Seg Neutrophils # Man 14.8 H Lymphocytes # (Manual) 0.8 L Monocytes # (Manual) Eosinophils # (Manual) PT INR APTT D-Dimer Heparin Anti-Xa Level ABG pH POC ABG pCO2 POC ABG pO2 ABG pO2 ABG HCO3 ABG O2 Saturation ABG Base Excess ABG Hemoglobin ABG Oxyhemoglobin ABG Sodium ABG Potassium ABG Chloride ABG Glucose Oxyhemoglobin Carboxyhemoglobin Sodium Potassium Chloride 93.3 L Carbon Dioxide 43 H* BUN Creatinine 0.3 L Glucose 260 H POC Glucose 245 H Lactic Acid Calcium Magnesium Ferritin Total Bilirubin Direct Bilirubin AST ALT Alkaline Phosphatase Lactate Dehydrogenase C-Reactive Protein Total Protein Albumin 2.8 L Triglycerides 452 H Lipase Arterial Blood Glucose Arterial Blood Ionized Calcium Urine WBC (Auto) Coronavirus (PCR) SARS-CoV-2 IgG Ab Crossmatch 06/30/20 07/01/20 07/01/20 17:32 00:02 05:02 WBC RBC Hgb Hct MCV MCH MCHC RDW Lymph % (Auto) [place] % (Auto) Lymph # (Auto) [place] # (Auto) Baso # (Auto) Seg Neutrophils % Seg Neuts % (Manual) Lymphocytes % (Manual) Nucleated RBC % Seg Neutrophils # Seg Neutrophils # Man Lymphocytes # (Manual) Monocytes # (Manual) Eosinophils # (Manual) PT INR APTT D-Dimer Heparin Anti-Xa Level ABG pH POC ABG pCO2 58.1 H POC ABG pO2 ABG pO2 ABG HCO3 ABG O2 Saturation ABG Base Excess ABG Hemoglobin 11.2 L ABG Oxyhemoglobin ABG Sodium 132.7 L ABG Potassium ABG Chloride 92.0 L ABG Glucose 238 H Oxyhemoglobin Carboxyhemoglobin Sodium Potassium Chloride Carbon Dioxide BUN Creatinine Glucose POC Glucose 209 H 208 H Lactic Acid Calcium Magnesium Ferritin Total Bilirubin Direct Bilirubin AST ALT Alkaline Phosphatase Lactate Dehydrogenase C-Reactive Protein Total Protein Albumin Triglycerides Lipase Arterial Blood Glucose 238 H Arterial Blood Ionized Calcium Urine WBC (Auto) Coronavirus (PCR) SARS-CoV-2 IgG Ab Crossmatch 07/01/20 07/01/20 07/01/20 06:16 06:41 06:41 WBC 18.1 H RBC 2.33 L Hgb 7.1 L Hct 21.3 L D MCV MCH MCHC RDW Lymph % (Auto) [place] % (Auto) Lymph # (Auto) [place] # (Auto) Baso # (Auto) Seg Neutrophils % Seg Neuts % (Manual) 82.0 H Lymphocytes % (Manual) 7.0 L Nucleated RBC % 1.0 H Seg Neutrophils # Seg Neutrophils # Man 14.8 H Lymphocytes # (Manual) Monocytes # (Manual) 1.1 H Eosinophils # (Manual) 0.5 H PT INR APTT D-Dimer Heparin Anti-Xa Level < 0.10 L ABG pH POC ABG pCO2 POC ABG pO2 ABG pO2 ABG HCO3 ABG O2 Saturation ABG Base Excess ABG Hemoglobin ABG Oxyhemoglobin ABG Sodium ABG Potassium ABG Chloride ABG Glucose Oxyhemoglobin Carboxyhemoglobin Sodium Potassium Chloride Carbon Dioxide BUN Creatinine Glucose POC Glucose 180 H Lactic Acid Calcium Magnesium Ferritin Total Bilirubin Direct Bilirubin AST ALT Alkaline Phosphatase Lactate Dehydrogenase C-Reactive Protein Total Protein Albumin Triglycerides Lipase Arterial Blood Glucose Arterial Blood Ionized Calcium Urine WBC (Auto) Coronavirus (PCR) SARS-CoV-2 IgG Ab Crossmatch 07/01/20 07/01/20 07/01/20 08:11 12:04 16:16 WBC RBC Hgb Hct MCV MCH MCHC RDW Lymph % (Auto) [place] % (Auto) Lymph # (Auto) [place] # (Auto) Baso # (Auto) Seg Neutrophils % Seg Neuts % (Manual) Lymphocytes % (Manual) Nucleated RBC % Seg Neutrophils # Seg Neutrophils # Man Lymphocytes # (Manual) Monocytes # (Manual) Eosinophils # (Manual) PT INR APTT D-Dimer Heparin Anti-Xa Level 1.02 H ABG pH POC ABG pCO2 POC ABG pO2 ABG pO2 ABG HCO3 ABG O2 Saturation ABG Base Excess ABG Hemoglobin ABG Oxyhemoglobin ABG Sodium ABG Potassium ABG Chloride ABG Glucose Oxyhemoglobin Carboxyhemoglobin Sodium 135 L Potassium 3.0 L Chloride 93.1 L Carbon Dioxide 40 H BUN Creatinine 0.3 L Glucose 140 H POC Glucose 223 H Lactic Acid Calcium Magnesium Ferritin Total Bilirubin Direct Bilirubin AST ALT Alkaline Phosphatase Lactate Dehydrogenase C-Reactive Protein Total Protein Albumin Triglycerides Lipase Arterial Blood Glucose Arterial Blood Ionized Calcium Urine WBC (Auto) Coronavirus (PCR) SARS-CoV-2 IgG Ab Crossmatch 07/01/20 07/01/20 07/02/20 17:09 23:19 00:56 WBC RBC Hgb Hct MCV MCH MCHC RDW Lymph % (Auto) [place] % (Auto) Lymph # (Auto) [place] # (Auto) Baso # (Auto) Seg Neutrophils % Seg Neuts % (Manual) Lymphocytes % (Manual) Nucleated RBC % Seg Neutrophils # Seg Neutrophils # Man Lymphocytes # (Manual) Monocytes # (Manual) Eosinophils # (Manual) PT INR APTT D-Dimer Heparin Anti-Xa Level 0.22 L ABG pH POC ABG pCO2 POC ABG pO2 ABG pO2 ABG HCO3 ABG O2 Saturation ABG Base Excess ABG Hemoglobin ABG Oxyhemoglobin ABG Sodium ABG Potassium ABG Chloride ABG Glucose Oxyhemoglobin Carboxyhemoglobin Sodium Potassium Chloride Carbon Dioxide BUN Creatinine Glucose POC Glucose 233 H 255 H Lactic Acid Calcium Magnesium Ferritin Total Bilirubin Direct Bilirubin AST ALT Alkaline Phosphatase Lactate Dehydrogenase C-Reactive Protein Total Protein Albumin Triglycerides Lipase Arterial Blood Glucose Arterial Blood Ionized Calcium Urine WBC (Auto) Coronavirus (PCR) SARS-CoV-2 IgG Ab Crossmatch 07/02/20 07/02/20 07/02/20 03:51 05:35 11:39 WBC RBC Hgb Hct MCV MCH MCHC RDW Lymph % (Auto) [place] % (Auto) Lymph # (Auto) [place] # (Auto) Baso # (Auto) Seg Neutrophils % Seg Neuts % (Manual) Lymphocytes % (Manual) Nucleated RBC % Seg Neutrophils # Seg Neutrophils # Man Lymphocytes # (Manual) Monocytes # (Manual) Eosinophils # (Manual) PT INR APTT D-Dimer Heparin Anti-Xa Level ABG pH POC ABG pCO2 54.9 H POC ABG pO2 52.1 L ABG pO2 ABG HCO3 ABG O2 Saturation ABG Base Excess ABG Hemoglobin 11.9 L ABG Oxyhemoglobin 82.8 L ABG Sodium 130.2 L ABG Potassium ABG Chloride 92.0 L ABG Glucose 249 H Oxyhemoglobin Carboxyhemoglobin 1.9 H Sodium Potassium Chloride Carbon Dioxide BUN Creatinine Glucose POC Glucose 205 H 235 H Lactic Acid Calcium Magnesium Ferritin Total Bilirubin Direct Bilirubin AST ALT Alkaline Phosphatase Lactate Dehydrogenase C-Reactive Protein Total Protein Albumin Triglycerides Lipase Arterial Blood Glucose 249 H Arterial Blood Ionized Calcium Urine WBC (Auto) Coronavirus (PCR) SARS-CoV-2 IgG Ab Crossmatch 07/02/20 07/02/20 07/02/20 16:08 16:08 17:54 WBC 19.8 H RBC 3.28 L Hgb 10.7 L D Hct 32.7 L D MCV 100 H MCH 33 H MCHC RDW 17.2 H Lymph % (Auto) [place] % (Auto) Lymph # (Auto) [place] # (Auto) Baso # (Auto) Seg Neutrophils % Seg Neuts % (Manual) Lymphocytes % (Manual) Nucleated RBC % Seg Neutrophils # Seg Neutrophils # Man Lymphocytes # (Manual) Monocytes # (Manual) Eosinophils # (Manual) PT INR APTT D-Dimer Heparin Anti-Xa Level ABG pH POC ABG pCO2 POC ABG pO2 ABG pO2 ABG HCO3 ABG O2 Saturation ABG Base Excess ABG Hemoglobin ABG Oxyhemoglobin ABG Sodium ABG Potassium ABG Chloride ABG Glucose Oxyhemoglobin Carboxyhemoglobin Sodium 136 L Potassium Chloride 92.4 L Carbon Dioxide 35 H BUN Creatinine 0.3 L Glucose 203 H POC Glucose 175 H Lactic Acid Calcium Magnesium Ferritin Total Bilirubin Direct Bilirubin AST ALT Alkaline Phosphatase Lactate Dehydrogenase C-Reactive Protein Total Protein Albumin Triglycerides Lipase Arterial Blood Glucose Arterial Blood Ionized Calcium Urine WBC (Auto) Coronavirus (PCR) SARS-CoV-2 IgG Ab Crossmatch 07/02/20 07/03/20 07/03/20 23:46 03:25 05:54 WBC RBC Hgb Hct MCV MCH MCHC RDW Lymph % (Auto) [place] % (Auto) Lymph # (Auto) [place] # (Auto) Baso # (Auto) Seg Neutrophils % Seg Neuts % (Manual) Lymphocytes % (Manual) Nucleated RBC % Seg Neutrophils # Seg Neutrophils # Man Lymphocytes # (Manual) Monocytes # (Manual) Eosinophils # (Manual) PT INR APTT D-Dimer Heparin Anti-Xa Level ABG pH 7.468 H POC ABG pCO2 51.5 H POC ABG pO2 ABG pO2 ABG HCO3 ABG O2 Saturation ABG Base Excess ABG Hemoglobin ABG Oxyhemoglobin ABG Sodium 130.2 L ABG Potassium ABG Chloride 91.0 L ABG Glucose 210 H Oxyhemoglobin Carboxyhemoglobin 1.6 H Sodium Potassium Chloride Carbon Dioxide BUN Creatinine Glucose POC Glucose 173 H 125 H Lactic Acid Calcium Magnesium Ferritin Total Bilirubin Direct Bilirubin AST ALT Alkaline Phosphatase Lactate Dehydrogenase C-Reactive Protein Total Protein Albumin Triglycerides Lipase Arterial Blood Glucose 210 H Arterial Blood Ionized Calcium Urine WBC (Auto) Coronavirus (PCR) SARS-CoV-2 IgG Ab Crossmatch 07/03/20 07/03/20 07/03/20 11:43 12:20 12:20 WBC 16.5 H RBC 3.13 L Hgb 10.4 L Hct 31.8 L MCV 102 H MCH 33 H MCHC RDW 17.2 H Lymph % (Auto) [place] % (Auto) Lymph # (Auto) [place] # (Auto) Baso # (Auto) Seg Neutrophils % Seg Neuts % (Manual) Lymphocytes % (Manual) Nucleated RBC % Seg Neutrophils # Seg Neutrophils # Man Lymphocytes # (Manual) Monocytes # (Manual) Eosinophils # (Manual) PT INR APTT D-Dimer Heparin Anti-Xa Level ABG pH POC ABG pCO2 POC ABG pO2 ABG pO2 ABG HCO3 ABG O2 Saturation ABG Base Excess ABG Hemoglobin ABG Oxyhemoglobin ABG Sodium ABG Potassium ABG Chloride ABG Glucose Oxyhemoglobin Carboxyhemoglobin Sodium 132 L Potassium Chloride 88.5 L Carbon Dioxide 37 H BUN Creatinine 0.3 L Glucose 230 H POC Glucose 223 H Lactic Acid Calcium Magnesium Ferritin Total Bilirubin Direct Bilirubin AST ALT Alkaline Phosphatase Lactate Dehydrogenase C-Reactive Protein Total Protein Albumin Triglycerides Lipase Arterial Blood Glucose Arterial Blood Ionized Calcium Urine WBC (Auto) Coronavirus (PCR) SARS-CoV-2 IgG Ab Crossmatch 07/03/20 07/03/20 07/04/20 17:24 21:41 00:54 WBC RBC Hgb Hct MCV MCH MCHC RDW Lymph % (Auto) [place] % (Auto) Lymph # (Auto) [place] # (Auto) Baso # (Auto) Seg Neutrophils % Seg Neuts % (Manual) Lymphocytes % (Manual) Nucleated RBC % Seg Neutrophils # Seg Neutrophils # Man Lymphocytes # (Manual) Monocytes # (Manual) Eosinophils # (Manual) PT INR APTT D-Dimer Heparin Anti-Xa Level ABG pH POC ABG pCO2 POC ABG pO2 ABG pO2 ABG HCO3 ABG O2 Saturation ABG Base Excess ABG Hemoglobin ABG Oxyhemoglobin ABG Sodium ABG Potassium ABG Chloride ABG Glucose Oxyhemoglobin Carboxyhemoglobin Sodium Potassium Chloride Carbon Dioxide BUN Creatinine Glucose POC Glucose 163 H 220 H 195 H Lactic Acid Calcium Magnesium Ferritin Total Bilirubin Direct Bilirubin AST ALT Alkaline Phosphatase Lactate Dehydrogenase C-Reactive Protein Total Protein Albumin Triglycerides Lipase Arterial Blood Glucose Arterial Blood Ionized Calcium Urine WBC (Auto) Coronavirus (PCR) SARS-CoV-2 IgG Ab Crossmatch 07/04/20 07/04/20 07/04/20 03:25 04:00 04:00 WBC 14.9 H RBC 2.91 L Hgb 9.5 L Hct 29.2 L MCV 100 H MCH 33 H MCHC RDW 16.7 H Lymph % (Auto) 8.4 L [place] % (Auto) Lymph # (Auto) [place] # (Auto) 1.1 H Baso # (Auto) Seg Neutrophils % 84.2 H Seg Neuts % (Manual) Lymphocytes % (Manual) Nucleated RBC % Seg Neutrophils # 12.6 H Seg Neutrophils # Man Lymphocytes # (Manual) Monocytes # (Manual) Eosinophils # (Manual) PT INR APTT D-Dimer Heparin Anti-Xa Level ABG pH 7.474 H POC ABG pCO2 POC ABG pO2 51.8 L ABG pO2 ABG HCO3 ABG O2 Saturation ABG Base Excess ABG Hemoglobin ABG Oxyhemoglobin ABG Sodium ABG Potassium ABG Chloride ABG Glucose Oxyhemoglobin Carboxyhemoglobin Sodium Potassium 3.4 L Chloride 92.1 L Carbon Dioxide 34 H BUN Creatinine 0.3 L Glucose 173 H POC Glucose Lactic Acid Calcium Magnesium Ferritin Total Bilirubin Direct Bilirubin AST ALT Alkaline Phosphatase Lactate Dehydrogenase C-Reactive Protein Total Protein Albumin Triglycerides Lipase Arterial Blood Glucose Arterial Blood Ionized Calcium Urine WBC (Auto) Coronavirus (PCR) SARS-CoV-2 IgG Ab Crossmatch 07/04/20 07/04/20 07/04/20 06:18 11:39 17:18 WBC RBC Hgb Hct MCV MCH MCHC RDW Lymph % (Auto) [place] % (Auto) Lymph # (Auto) [place] # (Auto) Baso # (Auto) Seg Neutrophils % Seg Neuts % (Manual) Lymphocytes % (Manual) Nucleated RBC % Seg Neutrophils # Seg Neutrophils # Man Lymphocytes # (Manual) Monocytes # (Manual) Eosinophils # (Manual) PT INR APTT D-Dimer Heparin Anti-Xa Level ABG pH POC ABG pCO2 POC ABG pO2 ABG pO2 ABG HCO3 ABG O2 Saturation ABG Base Excess ABG Hemoglobin ABG Oxyhemoglobin ABG Sodium ABG Potassium ABG Chloride ABG Glucose Oxyhemoglobin Carboxyhemoglobin Sodium Potassium Chloride Carbon Dioxide BUN Creatinine Glucose POC Glucose 158 H 257 H 148 H Lactic Acid Calcium Magnesium Ferritin Total Bilirubin Direct Bilirubin AST ALT Alkaline Phosphatase Lactate Dehydrogenase C-Reactive Protein Total Protein Albumin Triglycerides Lipase Arterial Blood Glucose Arterial Blood Ionized Calcium Urine WBC (Auto) Coronavirus (PCR) SARS-CoV-2 IgG Ab Crossmatch 07/04/20 07/05/20 07/05/20 23:23 03:13 05:18 WBC 13.3 H RBC 2.90 L Hgb 9.8 L Hct 29.3 L MCV 101 H MCH 34 H MCHC RDW 17.0 H Lymph % (Auto) 11.1 L [place] % (Auto) Lymph # (Auto) [place] # (Auto) Baso # (Auto) Seg Neutrophils % 82.3 H Seg Neuts % (Manual) Lymphocytes % (Manual) Nucleated RBC % Seg Neutrophils # 10.9 H Seg Neutrophils # Man Lymphocytes # (Manual) Monocytes # (Manual) Eosinophils # (Manual) PT INR APTT D-Dimer Heparin Anti-Xa Level ABG pH 7.48 H POC ABG pCO2 52.0 H POC ABG pO2 ABG pO2 ABG HCO3 ABG O2 Saturation ABG Base Excess ABG Hemoglobin 10.0 L ABG Oxyhemoglobin ABG Sodium 131.0 L ABG Potassium 3.3 L ABG Chloride 93.0 L ABG Glucose 177 H Oxyhemoglobin Carboxyhemoglobin Sodium Potassium Chloride Carbon Dioxide BUN Creatinine Glucose POC Glucose 227 H Lactic Acid Calcium Magnesium Ferritin Total Bilirubin Direct Bilirubin AST ALT Alkaline Phosphatase Lactate Dehydrogenase C-Reactive Protein Total Protein Albumin Triglycerides Lipase Arterial Blood Glucose 177 H Arterial Blood Ionized Calcium Urine WBC (Auto) Coronavirus (PCR) SARS-CoV-2 IgG Ab Crossmatch 07/05/20 07/05/20 07/05/20 05:18 05:25 05:57 WBC RBC Hgb Hct MCV MCH MCHC RDW Lymph % (Auto) [place] % (Auto) Lymph # (Auto) [place] # (Auto) Baso # (Auto) Seg Neutrophils % Seg Neuts % (Manual) Lymphocytes % (Manual) Nucleated RBC % Seg Neutrophils # Seg Neutrophils # Man Lymphocytes # (Manual) Monocytes # (Manual) Eosinophils # (Manual) PT INR APTT D-Dimer Heparin Anti-Xa Level ABG pH 7.519 H POC ABG pCO2 POC ABG pO2 198.6 H ABG pO2 ABG HCO3 ABG O2 Saturation ABG Base Excess ABG Hemoglobin 10.3 L ABG Oxyhemoglobin 98.7 H ABG Sodium 133.6 L ABG Potassium 3.3 L ABG Chloride 93.0 L ABG Glucose 175 H Oxyhemoglobin Carboxyhemoglobin Sodium Potassium 3.4 L Chloride 92.5 L Carbon Dioxide 36 H BUN Creatinine 0.3 L Glucose 148 H POC Glucose 170 H Lactic Acid Calcium Magnesium Ferritin Total Bilirubin Direct Bilirubin AST ALT Alkaline Phosphatase Lactate Dehydrogenase C-Reactive Protein Total Protein Albumin Triglycerides Lipase Arterial Blood Glucose 175 H Arterial Blood Ionized Calcium Urine WBC (Auto) Coronavirus (PCR) SARS-CoV-2 IgG Ab Crossmatch 07/05/20 07/05/20 07/06/20 11:37 18:39 00:04 WBC RBC Hgb Hct MCV MCH MCHC RDW Lymph % (Auto) [place] % (Auto) Lymph # (Auto) [place] # (Auto) Baso # (Auto) Seg Neutrophils % Seg Neuts % (Manual) Lymphocytes % (Manual) Nucleated RBC % Seg Neutrophils # Seg Neutrophils # Man Lymphocytes # (Manual) Monocytes # (Manual) Eosinophils # (Manual) PT INR APTT D-Dimer Heparin Anti-Xa Level ABG pH POC ABG pCO2 POC ABG pO2 ABG pO2 ABG HCO3 ABG O2 Saturation ABG Base Excess ABG Hemoglobin ABG Oxyhemoglobin ABG Sodium ABG Potassium ABG Chloride ABG Glucose Oxyhemoglobin Carboxyhemoglobin Sodium Potassium Chloride Carbon Dioxide BUN Creatinine Glucose POC Glucose 195 H 200 H 222 H Lactic Acid Calcium Magnesium Ferritin Total Bilirubin Direct Bilirubin AST ALT Alkaline Phosphatase Lactate Dehydrogenase C-Reactive Protein Total Protein Albumin Triglycerides Lipase Arterial Blood Glucose Arterial Blood Ionized Calcium Urine WBC (Auto) Coronavirus (PCR) SARS-CoV-2 IgG Ab Crossmatch 07/06/20 07/06/20 07/06/20 05:25 06:52 06:52 WBC 15.8 H RBC 3.17 L Hgb 10.4 L Hct 31.5 L MCV 99 H MCH 33 H MCHC RDW 17.0 H Lymph % (Auto) [place] % (Auto) Lymph # (Auto) [place] # (Auto) Baso # (Auto) Seg Neutrophils % Seg Neuts % (Manual) Lymphocytes % (Manual) Nucleated RBC % Seg Neutrophils # Seg Neutrophils # Man Lymphocytes # (Manual) Monocytes # (Manual) Eosinophils # (Manual) PT INR APTT D-Dimer Heparin Anti-Xa Level ABG pH POC ABG pCO2 POC ABG pO2 ABG pO2 ABG HCO3 ABG O2 Saturation ABG Base Excess ABG Hemoglobin ABG Oxyhemoglobin ABG Sodium ABG Potassium ABG Chloride ABG Glucose Oxyhemoglobin Carboxyhemoglobin Sodium 135 L Potassium 3.4 L Chloride 91.9 L Carbon Dioxide 38 H BUN Creatinine 0.3 L Glucose 189 H POC Glucose 165 H Lactic Acid Calcium Magnesium Ferritin Total Bilirubin Direct Bilirubin AST ALT Alkaline Phosphatase Lactate Dehydrogenase C-Reactive Protein Total Protein Albumin Triglycerides Lipase Arterial Blood Glucose Arterial Blood Ionized Calcium Urine WBC (Auto) Coronavirus (PCR) SARS-CoV-2 IgG Ab Crossmatch 07/06/20 07/06/20 07/06/20 13:01 18:04 23:08 WBC RBC Hgb Hct MCV MCH MCHC RDW Lymph % (Auto) [place] % (Auto) Lymph # (Auto) [place] # (Auto) Baso # (Auto) Seg Neutrophils % Seg Neuts % (Manual) Lymphocytes % (Manual) Nucleated RBC % Seg Neutrophils # Seg Neutrophils # Man Lymphocytes # (Manual) Monocytes # (Manual) Eosinophils # (Manual) PT INR APTT D-Dimer Heparin Anti-Xa Level ABG pH POC ABG pCO2 POC ABG pO2 ABG pO2 ABG HCO3 ABG O2 Saturation ABG Base Excess ABG Hemoglobin ABG Oxyhemoglobin ABG Sodium ABG Potassium ABG Chloride ABG Glucose Oxyhemoglobin Carboxyhemoglobin Sodium Potassium Chloride Carbon Dioxide BUN Creatinine Glucose POC Glucose 195 H 169 H 173 H Lactic Acid Calcium Magnesium Ferritin Total Bilirubin Direct Bilirubin AST ALT Alkaline Phosphatase Lactate Dehydrogenase C-Reactive Protein Total Protein Albumin Triglycerides Lipase Arterial Blood Glucose Arterial Blood Ionized Calcium Urine WBC (Auto) Coronavirus (PCR) SARS-CoV-2 IgG Ab Crossmatch 07/07/20 07/07/20 07/07/20 05:35 05:35 05:39 WBC 17.6 H RBC 3.16 L Hgb 10.4 L Hct 31.5 L MCV 100 H MCH 33 H MCHC RDW 16.7 H Lymph % (Auto) 11.1 L [place] % (Auto) Lymph # (Auto) [place] # (Auto) 1.0 H Baso # (Auto) Seg Neutrophils % 83.0 H Seg Neuts % (Manual) Lymphocytes % (Manual) Nucleated RBC % Seg Neutrophils # 14.6 H Seg Neutrophils # Man Lymphocytes # (Manual) Monocytes # (Manual) Eosinophils # (Manual) PT INR APTT D-Dimer Heparin Anti-Xa Level ABG pH POC ABG pCO2 POC ABG pO2 ABG pO2 ABG HCO3 ABG O2 Saturation ABG Base Excess ABG Hemoglobin ABG Oxyhemoglobin ABG Sodium ABG Potassium ABG Chloride ABG Glucose Oxyhemoglobin Carboxyhemoglobin Sodium 135 L Potassium 3.4 L Chloride 94.3 L Carbon Dioxide 32 H BUN Creatinine 0.2 L Glucose 240 H POC Glucose 191 H Lactic Acid Calcium Magnesium Ferritin Total Bilirubin Direct Bilirubin AST ALT Alkaline Phosphatase Lactate Dehydrogenase C-Reactive Protein Total Protein Albumin Triglycerides Lipase Arterial Blood Glucose Arterial Blood Ionized Calcium Urine WBC (Auto) Coronavirus (PCR) SARS-CoV-2 IgG Ab Crossmatch 07/07/20 07/07/20 07/07/20 12:08 16:39 23:41 WBC RBC Hgb Hct MCV MCH MCHC RDW Lymph % (Auto) [place] % (Auto) Lymph # (Auto) [place] # (Auto) Baso # (Auto) Seg Neutrophils % Seg Neuts % (Manual) Lymphocytes % (Manual) Nucleated RBC % Seg Neutrophils # Seg Neutrophils # Man Lymphocytes # (Manual) Monocytes # (Manual) Eosinophils # (Manual) PT INR APTT D-Dimer Heparin Anti-Xa Level ABG pH POC ABG pCO2 POC ABG pO2 ABG pO2 ABG HCO3 ABG O2 Saturation ABG Base Excess ABG Hemoglobin ABG Oxyhemoglobin ABG Sodium ABG Potassium ABG Chloride ABG Glucose Oxyhemoglobin Carboxyhemoglobin Sodium Potassium Chloride Carbon Dioxide BUN Creatinine Glucose POC Glucose 248 H 209 H 231 H Lactic Acid Calcium Magnesium Ferritin Total Bilirubin Direct Bilirubin AST ALT Alkaline Phosphatase Lactate Dehydrogenase C-Reactive Protein Total Protein Albumin Triglycerides Lipase Arterial Blood Glucose Arterial Blood Ionized Calcium Urine WBC (Auto) Coronavirus (PCR) SARS-CoV-2 IgG Ab Crossmatch 07/08/20 07/08/20 07/08/20 04:58 04:58 05:38 WBC 21.0 H RBC 2.86 L Hgb 9.2 L Hct 28.6 L MCV 100 H MCH MCHC RDW 16.7 H Lymph % (Auto) [place] % (Auto) Lymph # (Auto) [place] # (Auto) Baso # (Auto) Seg Neutrophils % Seg Neuts % (Manual) 93.0 H Lymphocytes % (Manual) 3.0 L Nucleated RBC % Seg Neutrophils # Seg Neutrophils # Man 19.5 H Lymphocytes # (Manual) 0.6 L Monocytes # (Manual) Eosinophils # (Manual) PT INR APTT D-Dimer Heparin Anti-Xa Level ABG pH POC ABG pCO2 POC ABG pO2 ABG pO2 ABG HCO3 ABG O2 Saturation ABG Base Excess ABG Hemoglobin ABG Oxyhemoglobin ABG Sodium ABG Potassium ABG Chloride ABG Glucose Oxyhemoglobin Carboxyhemoglobin Sodium Potassium 3.0 L Chloride Carbon Dioxide BUN Creatinine 0.2 L Glucose 201 H POC Glucose 161 H Lactic Acid Calcium 7.9 L D Magnesium Ferritin Total Bilirubin Direct Bilirubin AST ALT Alkaline Phosphatase Lactate Dehydrogenase C-Reactive Protein Total Protein Albumin Triglycerides Lipase Arterial Blood Glucose Arterial Blood Ionized Calcium Urine WBC (Auto) Coronavirus (PCR) SARS-CoV-2 IgG Ab Crossmatch 07/08/20 07/08/20 07/08/20 12:19 16:26 Unknown WBC RBC Hgb Hct MCV MCH MCHC RDW Lymph % (Auto) [place] % (Auto) Lymph # (Auto) [place] # (Auto) Baso # (Auto) Seg Neutrophils % Seg Neuts % (Manual) Lymphocytes % (Manual) Nucleated RBC % Seg Neutrophils # Seg Neutrophils # Man Lymphocytes # (Manual) Monocytes # (Manual) Eosinophils # (Manual) PT INR APTT D-Dimer Heparin Anti-Xa Level ABG pH POC ABG pCO2 POC ABG pO2 ABG pO2 75.3 L ABG HCO3 34.3 H ABG O2 Saturation ABG Base Excess 8.7 H ABG Hemoglobin 10.2 L ABG Oxyhemoglobin ABG Sodium ABG Potassium ABG Chloride ABG Glucose Oxyhemoglobin 93.7 L Carboxyhemoglobin Sodium Potassium Chloride Carbon Dioxide BUN Creatinine Glucose POC Glucose 152 H 173 H Lactic Acid Calcium Magnesium Ferritin Total Bilirubin Direct Bilirubin AST ALT Alkaline Phosphatase Lactate Dehydrogenase C-Reactive Protein Total Protein Albumin Triglycerides Lipase Arterial Blood Glucose Arterial Blood Ionized Calcium Urine WBC (Auto) Coronavirus (PCR) SARS-CoV-2 IgG Ab Crossmatch 07/09/20 07/09/20 07/09/20 00:01 06:00 11:55 WBC RBC Hgb Hct MCV MCH MCHC RDW Lymph % (Auto) [place] % (Auto) Lymph # (Auto) [place] # (Auto) Baso # (Auto) Seg Neutrophils % Seg Neuts % (Manual) Lymphocytes % (Manual) Nucleated RBC % Seg Neutrophils # Seg Neutrophils # Man Lymphocytes # (Manual) Monocytes # (Manual) Eosinophils # (Manual) PT INR APTT D-Dimer Heparin Anti-Xa Level ABG pH POC ABG pCO2 POC ABG pO2 ABG pO2 ABG HCO3 ABG O2 Saturation ABG Base Excess ABG Hemoglobin ABG Oxyhemoglobin ABG Sodium ABG Potassium ABG Chloride ABG Glucose Oxyhemoglobin Carboxyhemoglobin Sodium Potassium Chloride Carbon Dioxide BUN Creatinine Glucose POC Glucose 207 H 141 H 228 H Lactic Acid Calcium Magnesium Ferritin Total Bilirubin Direct Bilirubin AST ALT Alkaline Phosphatase Lactate Dehydrogenase C-Reactive Protein Total Protein Albumin Triglycerides Lipase Arterial Blood Glucose Arterial Blood Ionized Calcium Urine WBC (Auto) Coronavirus (PCR) SARS-CoV-2 IgG Ab Crossmatch 07/09/20 07/09/20 07/09/20 16:47 23:53 Unknown WBC RBC Hgb Hct MCV MCH MCHC RDW Lymph % (Auto) [place] % (Auto) Lymph # (Auto) [place] # (Auto) Baso # (Auto) Seg Neutrophils % Seg Neuts % (Manual) Lymphocytes % (Manual) Nucleated RBC % Seg Neutrophils # Seg Neutrophils # Man Lymphocytes # (Manual) Monocytes # (Manual) Eosinophils # (Manual) PT INR APTT D-Dimer Heparin Anti-Xa Level ABG pH POC ABG pCO2 POC ABG pO2 ABG pO2 ABG HCO3 ABG O2 Saturation ABG Base Excess ABG Hemoglobin ABG Oxyhemoglobin ABG Sodium ABG Potassium ABG Chloride ABG Glucose Oxyhemoglobin Carboxyhemoglobin Sodium 132 L Potassium Chloride 92.7 L Carbon Dioxide 35 H BUN Creatinine 0.2 L Glucose 234 H POC Glucose 136 H 219 H Lactic Acid Calcium Magnesium Ferritin Total Bilirubin Direct Bilirubin AST ALT Alkaline Phosphatase Lactate Dehydrogenase C-Reactive Protein Total Protein Albumin Triglycerides Lipase Arterial Blood Glucose Arterial Blood Ionized Calcium Urine WBC (Auto) Coronavirus (PCR) SARS-CoV-2 IgG Ab Crossmatch 07/10/20 07/10/20 07/10/20 05:20 12:05 18:38 WBC RBC Hgb Hct MCV MCH MCHC RDW Lymph % (Auto) [place] % (Auto) Lymph # (Auto) [place] # (Auto) Baso # (Auto) Seg Neutrophils % Seg Neuts % (Manual) Lymphocytes % (Manual) Nucleated RBC % Seg Neutrophils # Seg Neutrophils # Man Lymphocytes # (Manual) Monocytes # (Manual) Eosinophils # (Manual) PT INR APTT D-Dimer Heparin Anti-Xa Level ABG pH POC ABG pCO2 POC ABG pO2 ABG pO2 ABG HCO3 ABG O2 Saturation ABG Base Excess ABG Hemoglobin ABG Oxyhemoglobin ABG Sodium ABG Potassium ABG Chloride ABG Glucose Oxyhemoglobin Carboxyhemoglobin Sodium Potassium Chloride Carbon Dioxide BUN Creatinine Glucose POC Glucose 221 H 174 H 152 H Lactic Acid Calcium Magnesium Ferritin Total Bilirubin Direct Bilirubin AST ALT Alkaline Phosphatase Lactate Dehydrogenase C-Reactive Protein Total Protein Albumin Triglycerides Lipase Arterial Blood Glucose Arterial Blood Ionized Calcium Urine WBC (Auto) Coronavirus (PCR) SARS-CoV-2 IgG Ab Crossmatch 07/11/20 07/11/20 07/11/20 00:16 05:42 08:13 WBC 11.9 H RBC 3.13 L Hgb 10.2 L Hct 31.2 L MCV 100 H MCH 33 H MCHC RDW 16.4 H Lymph % (Auto) [place] % (Auto) 9.3 H Lymph # (Auto) [place] # (Auto) 1.1 H Baso # (Auto) Seg Neutrophils % 72.7 H Seg Neuts % (Manual) Lymphocytes % (Manual) Nucleated RBC % Seg Neutrophils # 8.7 H Seg Neutrophils # Man Lymphocytes # (Manual) Monocytes # (Manual) Eosinophils # (Manual) PT INR APTT D-Dimer Heparin Anti-Xa Level ABG pH POC ABG pCO2 POC ABG pO2 ABG pO2 ABG HCO3 ABG O2 Saturation ABG Base Excess ABG Hemoglobin ABG Oxyhemoglobin ABG Sodium ABG Potassium ABG Chloride ABG Glucose Oxyhemoglobin Carboxyhemoglobin Sodium Potassium Chloride Carbon Dioxide BUN Creatinine Glucose POC Glucose 170 H 186 H Lactic Acid Calcium Magnesium Ferritin Total Bilirubin Direct Bilirubin AST ALT Alkaline Phosphatase Lactate Dehydrogenase C-Reactive Protein Total Protein Albumin Triglycerides Lipase Arterial Blood Glucose Arterial Blood Ionized Calcium Urine WBC (Auto) Coronavirus (PCR) SARS-CoV-2 IgG Ab Crossmatch 07/11/20 07/11/20 07/11/20 08:13 11:35 18:07 WBC RBC Hgb Hct MCV MCH MCHC RDW Lymph % (Auto) [place] % (Auto) Lymph # (Auto) [place] # (Auto) Baso # (Auto) Seg Neutrophils % Seg Neuts % (Manual) Lymphocytes % (Manual) Nucleated RBC % Seg Neutrophils # Seg Neutrophils # Man Lymphocytes # (Manual) Monocytes # (Manual) Eosinophils # (Manual) PT INR APTT D-Dimer Heparin Anti-Xa Level ABG pH POC ABG pCO2 POC ABG pO2 ABG pO2 ABG HCO3 ABG O2 Saturation ABG Base Excess ABG Hemoglobin ABG Oxyhemoglobin ABG Sodium ABG Potassium ABG Chloride ABG Glucose Oxyhemoglobin Carboxyhemoglobin Sodium 135 L Potassium Chloride 92.8 L Carbon Dioxide 38 H BUN Creatinine 0.2 L Glucose 132 H POC Glucose 129 H 156 H Lactic Acid Calcium Magnesium Ferritin Total Bilirubin Direct Bilirubin AST ALT Alkaline Phosphatase Lactate Dehydrogenase C-Reactive Protein Total Protein Albumin Triglycerides Lipase Arterial Blood Glucose Arterial Blood Ionized Calcium Urine WBC (Auto) Coronavirus (PCR) SARS-CoV-2 IgG Ab Crossmatch 07/11/20 07/11/20 07/12/20 18:36 23:18 05:28 WBC RBC Hgb Hct MCV MCH MCHC RDW Lymph % (Auto) [place] % (Auto) Lymph # (Auto) [place] # (Auto) Baso # (Auto) Seg Neutrophils % Seg Neuts % (Manual) Lymphocytes % (Manual) Nucleated RBC % Seg Neutrophils # Seg Neutrophils # Man Lymphocytes # (Manual) Monocytes # (Manual) Eosinophils # (Manual) PT INR APTT D-Dimer Heparin Anti-Xa Level ABG pH POC ABG pCO2 POC ABG pO2 70.9 L ABG pO2 ABG HCO3 ABG O2 Saturation ABG Base Excess ABG Hemoglobin 10.8 L ABG Oxyhemoglobin 92.5 L ABG Sodium 131.8 L ABG Potassium 3.2 L ABG Chloride 91.0 L ABG Glucose 181 H Oxyhemoglobin Carboxyhemoglobin Sodium Potassium Chloride Carbon Dioxide BUN Creatinine Glucose POC Glucose 189 H 190 H Lactic Acid Calcium Magnesium Ferritin Total Bilirubin Direct Bilirubin AST ALT Alkaline Phosphatase Lactate Dehydrogenase C-Reactive Protein Total Protein Albumin Triglycerides Lipase Arterial Blood Glucose 181 H Arterial Blood Ionized Calcium Urine WBC (Auto) Coronavirus (PCR) SARS-CoV-2 IgG Ab Crossmatch 07/12/20 07/12/20 07/12/20 11:33 17:45 23:59 WBC RBC Hgb Hct MCV MCH MCHC RDW Lymph % (Auto) [place] % (Auto) Lymph # (Auto) [place] # (Auto) Baso # (Auto) Seg Neutrophils % Seg Neuts % (Manual) Lymphocytes % (Manual) Nucleated RBC % Seg Neutrophils # Seg Neutrophils # Man Lymphocytes # (Manual) Monocytes # (Manual) Eosinophils # (Manual) PT INR APTT D-Dimer Heparin Anti-Xa Level ABG pH POC ABG pCO2 POC ABG pO2 ABG pO2 ABG HCO3 ABG O2 Saturation ABG Base Excess ABG Hemoglobin ABG Oxyhemoglobin ABG Sodium ABG Potassium ABG Chloride ABG Glucose Oxyhemoglobin Carboxyhemoglobin Sodium Potassium Chloride Carbon Dioxide BUN Creatinine Glucose POC Glucose 151 H 211 H 169 H Lactic Acid Calcium Magnesium Ferritin Total Bilirubin Direct Bilirubin AST ALT Alkaline Phosphatase Lactate Dehydrogenase C-Reactive Protein Total Protein Albumin Triglycerides Lipase Arterial Blood Glucose Arterial Blood Ionized Calcium Urine WBC (Auto) Coronavirus (PCR) SARS-CoV-2 IgG Ab Crossmatch 07/13/20 07/13/20 07/13/20 05:44 08:31 08:31 WBC 21.3 H RBC 2.92 L Hgb 9.7 L Hct 28.7 L MCV 98 H MCH 33 H MCHC RDW 16.8 H Lymph % (Auto) [place] % (Auto) Lymph # (Auto) [place] # (Auto) Baso # (Auto) Seg Neutrophils % Seg Neuts % (Manual) 96.0 H Lymphocytes % (Manual) 2.0 L Nucleated RBC % Seg Neutrophils # Seg Neutrophils # Man 20.4 H Lymphocytes # (Manual) 0.4 L Monocytes # (Manual) Eosinophils # (Manual) PT INR APTT D-Dimer Heparin Anti-Xa Level ABG pH POC ABG pCO2 POC ABG pO2 ABG pO2 ABG HCO3 ABG O2 Saturation ABG Base Excess ABG Hemoglobin ABG Oxyhemoglobin ABG Sodium ABG Potassium ABG Chloride ABG Glucose Oxyhemoglobin Carboxyhemoglobin Sodium Potassium 2.9 L* D Chloride 94.4 L Carbon Dioxide 37 H BUN Creatinine 0.2 L Glucose 166 H POC Glucose 122 H Lactic Acid Calcium Magnesium Ferritin Total Bilirubin Direct Bilirubin AST ALT Alkaline Phosphatase Lactate Dehydrogenase C-Reactive Protein Total Protein Albumin Triglycerides Lipase Arterial Blood Glucose Arterial Blood Ionized Calcium Urine WBC (Auto) Coronavirus (PCR) SARS-CoV-2 IgG Ab Crossmatch 07/13/20 07/13/20 07/13/20 11:54 13:52 17:40 WBC RBC Hgb Hct MCV MCH MCHC RDW Lymph % (Auto) [place] % (Auto) Lymph # (Auto) [place] # (Auto) Baso # (Auto) Seg Neutrophils % Seg Neuts % (Manual) Lymphocytes % (Manual) Nucleated RBC % Seg Neutrophils # Seg Neutrophils # Man Lymphocytes # (Manual) Monocytes # (Manual) Eosinophils # (Manual) PT INR APTT D-Dimer Heparin Anti-Xa Level ABG pH 7.477 H POC ABG pCO2 54.4 H POC ABG pO2 126.8 H ABG pO2 ABG HCO3 ABG O2 Saturation ABG Base Excess ABG Hemoglobin 11.5 L ABG Oxyhemoglobin ABG Sodium ABG Potassium 3.2 L ABG Chloride 92.0 L ABG Glucose 169 H Oxyhemoglobin Carboxyhemoglobin Sodium Potassium Chloride Carbon Dioxide BUN Creatinine Glucose POC Glucose 132 H 128 H Lactic Acid Calcium Magnesium Ferritin Total Bilirubin Direct Bilirubin AST ALT Alkaline Phosphatase Lactate Dehydrogenase C-Reactive Protein Total Protein Albumin Triglycerides Lipase Arterial Blood Glucose 169 H Arterial Blood Ionized Calcium Urine WBC (Auto) Coronavirus (PCR) SARS-CoV-2 IgG Ab Crossmatch 07/14/20 07/14/20 07/15/20 07:49 17:09 05:27 WBC RBC Hgb Hct MCV MCH MCHC RDW Lymph % (Auto) [place] % (Auto) Lymph # (Auto) [place] # (Auto) Baso # (Auto) Seg Neutrophils % Seg Neuts % (Manual) Lymphocytes % (Manual) Nucleated RBC % Seg Neutrophils # Seg Neutrophils # Man Lymphocytes # (Manual) Monocytes # (Manual) Eosinophils # (Manual) PT INR APTT D-Dimer Heparin Anti-Xa Level ABG pH POC ABG pCO2 POC ABG pO2 ABG pO2 ABG HCO3 ABG O2 Saturation ABG Base Excess ABG Hemoglobin ABG Oxyhemoglobin ABG Sodium ABG Potassium ABG Chloride ABG Glucose Oxyhemoglobin Carboxyhemoglobin Sodium Potassium 2.7 L* Chloride 94.0 L Carbon Dioxide 37 H BUN Creatinine 0.3 L Glucose 110 H POC Glucose 152 H 61 L Lactic Acid Calcium Magnesium Ferritin Total Bilirubin Direct Bilirubin AST ALT Alkaline Phosphatase Lactate Dehydrogenase C-Reactive Protein Total Protein Albumin Triglycerides Lipase Arterial Blood Glucose Arterial Blood Ionized Calcium Urine WBC (Auto) Coronavirus (PCR) SARS-CoV-2 IgG Ab Crossmatch 07/15/20 07/15/20 05:31 11:49 WBC RBC Hgb Hct MCV MCH MCHC RDW Lymph % (Auto) [place] % (Auto) Lymph # (Auto) [place] # (Auto) Baso # (Auto) Seg Neutrophils % Seg Neuts % (Manual) Lymphocytes % (Manual) Nucleated RBC % Seg Neutrophils # Seg Neutrophils # Man Lymphocytes # (Manual) Monocytes # (Manual) Eosinophils # (Manual) PT INR APTT D-Dimer Heparin Anti-Xa Level ABG pH POC ABG pCO2 POC ABG pO2 ABG pO2 ABG HCO3 ABG O2 Saturation ABG Base Excess ABG Hemoglobin ABG Oxyhemoglobin ABG Sodium ABG Potassium ABG Chloride ABG Glucose Oxyhemoglobin Carboxyhemoglobin Sodium Potassium 3.2 L Chloride 91.2 L Carbon Dioxide 33 H BUN Creatinine 0.3 L Glucose 139 H POC Glucose 148 H Lactic Acid Calcium Magnesium Ferritin Total Bilirubin Direct Bilirubin AST ALT Alkaline Phosphatase Lactate Dehydrogenase C-Reactive Protein Total Protein Albumin Triglycerides Lipase Arterial Blood Glucose Arterial Blood Ionized Calcium Urine WBC (Auto) Coronavirus (PCR) SARS-CoV-2 IgG Ab Crossmatch Chest x-ray: image reviewed (small pneumothorax, persistent bilateral infiltrates) Allied health notes reviewed: nursing
--- NOTE | 2020-07-16 02:07 | XRay Report ---
XR chest 1V ap INDICATION / CLINICAL INFORMATION: eval of ptx, chest tube returned to suction. COMPARISON: Radiograph from earlier same day and radiographs were reviewed back to 07/04/2020 FINDINGS: SUPPORT DEVICES: Unchanged. HEART / MEDIASTINUM: Unchanged. LUNGS / PLEURA: Lung parenchyma is not significantly changed. There is a tiny linear lucency along t he right mid and upper thoracic cavity which is in a similar distribution to the prior pneumothorax o n prior examinations, concerning for a persistent tiny pneumothorax. ADDITIONAL FINDINGS: No significant additional findings. IMPRESSION: 1. No significant interval change. Signer Name: Bubba Victoria MD Signed: 07/16/2020 2:03 AM Workstation Name: [id number]
[2020-07-16] MEDS: INSULIN LISPRO 100 UNIT/ML VIAL 3 mL SUB-Q SCH ×3 (05:24→17:47)
[2020-07-16 05:34] LABS: Hematocrit 30.3 % (35.5-45.6); Mean Corpuscular HGB Conc 33 % (32-34); Mean Corpuscular Volume 98 fl (84-94); Platelet Count 284 K/mm3 (140-440); Red Cell Distribution Width 16.3 % (13.2-15.2)
[2020-07-16 05:51] LABS: Blood Urea Nitrogen 10 mg/dL (9-20); Calcium 9.3 mg/dL (8.4-10.2); Hemolysis Index 28
[2020-07-16] MEDS: CEFEPIME/NS 2 GM/100 ML 2 GM/100 ML BAG IV SCH ×3 (05:51→22:02)
[2020-07-16 06:05] LABS: BUN/Creatinine Ratio 33
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
[2020-07-16] MEDS: MIDODRINE 5 MG TAB PO SCH ×3 (08:52→16:41)
[2020-07-16] MEDS: ENOXAPARIN 80 MG/0.8 ML INJ SUB-Q SCH ×2 (09:51→22:06)
[2020-07-16] MEDS: FOLIC ACID 1 MG TAB PO SCH (09:52)
[2020-07-16] MEDS: ENOXAPARIN 30 MG/0.3 ML INJ SUB-Q SCH ×2 (09:52→22:07)
[2020-07-16] MEDS: LANSOPRAZOLE 30 MG SOLUTAB FEEDTUBE SCH (09:52)
[2020-07-16] MEDS: QUEtiapine 200 MG TAB PO SCH (09:52)
[2020-07-16] MEDS: PHENobarbital 32.4 MG TAB PO SCH ×2 (09:52→22:07)
[2020-07-16] MEDS: DOCUSATE SODIUM 100 MG/10 ML ORAL LIQD PO SCH ×2 (09:53→22:05)
[2020-07-16] MEDS ORDERED: QUEtiapine 25 MG TAB PO SCH (10:00)
--- NOTE | 2020-07-16 12:25 | Progress Note ---
Assessment and Plan Cultures: Blood culture 04/28/2020 no growth today SARS CoV2 PCR positive Sputum and urine culture with no significant growth Blood culture 07/13/2020 Pseudomonas species Assessment: 50 years old male with history of alcohol dependence and obesity admitted on 05/09/2020 due to 5-day history of generalized malaise, fatigue, body aches, dyspnea exertion, cough and shortness of breath, tested positive for COVID-19 2 days before admission: #Pseudomonas bacteremia: Awaiting ID and DOLLY. Currently on cefepime, fevers have resolved since initiation of antibiotics. Continue pending results. Possibly from lungs? #VAP: extubated since onset of bacteremia. Given Pseudomonas in the blood and bilateral airspace disease, presumed VAP. Elevated procalcitonin. #Severe sepsis: likely due to bilateral pneumonia from COVID. #COVID-19: Diagnosed in early May, now with negative PCR. #Acute hypoxemic respiratory failure: intubated on 05/22/2020. Extubated 07/13/2020 Recommendations: -Continue cefepime 2 g every 8 hours -Follow up blood culture ID and DOLLY. Likely to appear in labs "scanned reports" Dr. Bennett covering this weekend. Patricia Buchanan MD [facility] ([facility] O: [phone] F: [phone] Subjective Date of service: 07/16/20 Principal diagnosis: Ac hypoxemic resp failure; COVID-19; Severe Sepsis; Shaggy PNA; Alcohol Abuse Interval history: Afebrile now white count is 11.3 which is improved from yesterday. Currently on Venturi mask. Imaging personally viewed: Chest x-ray: No change Objective - Exam Narrative Exam: Physical Exam: Constitutional: Alert, cooperative. No acute distress. On nasal cannula. Head, Ears, Nose: Normocephalic, atraumatic. Eyes: Conjunctivae/corneas clear. No icterus. No ptosis. Neck: Supple, no meningeal signs Oral: dentition fair, no thrush Cardiovascular: S1, S2 normal. Respiratory: Good air entry, clear to auscultation bilaterally GI: Soft, non-tender; bowel sounds normal. No peritoneal signs. Musculoskeletal: No pedal edema, no cyanosis. Skin: No rash or abscess Hem/Lymphatic: No palpable cervical or supraclavicular nodes. Psych: Mood ok. Affect normal Neurological: Awake, alert, oriented. No gross abnormality - Constitutional Vitals: Vital Signs Temp Pulse Resp BP Pulse Ox 97.7 F 116 H 35 H 108/60 78 L 07/16/20 03:18 07/16/20 11:00 07/16/20 11:30 07/16/20 11:30 07/16/20 11:30 Temperature -Last 24 Hours Temperature 97.7 F Temperature 98.6 F Temperature 98.2 F Temperature 99 F - Labs CBC & Chem 7: 07/16/20 05:19 07/16/20 05:19 Labs: Abnormal lab results 07/15/20 07/15/20 07/16/20 Range/Units 17:18 23:08 05:18 WBC (4.5-11.0) K/mm3 RBC (3.65-5.03) M/mm3 Hgb (11.8-15.2) gm/dl Hct (35.5-45.6) % MCV (84-94) fl RDW (13.2-15.2) % Sodium (137-145) mmol/L Potassium (3.6-5.0) mmol/L Chloride (98-107) mmol/L Carbon Dioxide (22-30) mmol/L Creatinine (0.8-1.3) mg/dL Glucose (75-100) mg/dL POC Glucose 196 H 131 H 160 H (70-105) mg/dL 07/16/20 07/16/20 07/16/20 Range/Units 05:19 05:19 11:45 WBC 11.3 H (4.5-11.0) K/mm3 RBC 3.10 L (3.65-5.03) M/mm3 Hgb 10.0 L (11.8-15.2) gm/dl Hct 30.3 L (35.5-45.6) % MCV 98 H (84-94) fl RDW 16.3 H (13.2-15.2) % Sodium 132 L (137-145) mmol/L Potassium 3.4 L (3.6-5.0) mmol/L Chloride 89.9 L (98-107) mmol/L Carbon Dioxide 39 H (22-30) mmol/L Creatinine 0.3 L (0.8-1.3) mg/dL Glucose 174 H (75-100) mg/dL POC Glucose 169 H (70-105) mg/dL
--- NOTE | 2020-07-16 13:09 | Progress Note ---
Assessment and Plan Acute hypoxemic respiratory failure due to COVID-19 Severe Sepsis Bilateral pneumonia Acute kidney injury (SEN) with acute tubular necrosis (ATN) Alcohol dependence Elevated liver function tests - Psychiatry evaluation noted - chest tube removal per surgeon - continue BIPAP scheduled qhs with prn daytime use - continue SCRAP CARRIER evaluation - continue care as below otherwise; - prn Levophed for target MAP > 65 mmHg - continue to wean supplemental oxygen for target O2 sat's > 92% acutely - continue bid protonix - continue bowel regimen - aspiration precautions - continue bronchodilators with pulmonary hygiene per RT - accuchecks with glycemic control per SSI for target blood glucose of < 180 mg/dL; avoid hypoglycemia - enteral nutritional support at goal rate as tolerated - repeat COVID-19 testing is negative X 2 - continue Zinc & Vit C supplementaion - wean systemic steroids for Asthma / severe COVID infection - continue empiric full dose anticoagulation re: elevated d-dimers / hypercoagulable state - completed remdesivir dosing (total 5 days) - empiric AB's coverage per ID rec's - avoid nephrotoxins, renally dose all medications - continue to avoid benzodiazepine's, reduce the possibility of delirium - continue wound care per RN / WCN - prn analgesia per CPOT score - Maintenance of sleep-wake cycle, avoid delirium - continue to avoid benzodiazepine's, reduce the possibility of delirium - aspiration precautions - G.I. & VTE prophylaxis - PT/OT/ROM exercises - continue mobility protocols for pressure ulcer prophylaxis - Monitor hemodynamics closely - continue other care per attending / other consultants - discharge planning ongoing concurrently - transfer to [facility] ok .... Re-evaluate in am & prn CONDITION: FAIR PROGNOSIS: GUARDED CODE STATUS: FULL CODE I have spent ( >35 ) minutes with the patient w/ >50% of the time spent counseling and/or coordinating care for this patient. Counseling topics and/or how time was spent coordinating patient's care is outlined in the impression and plan above. Subjective Date of service: 07/16/20 Principal diagnosis: Ac hypoxemic resp failure; COVID-19; Severe Sepsis; Shaggy PNA; Alcohol Abuse Interval history: Patient is seen today for: Acute hypoxemic respiratory failure due to COVID-19; Severe Sepsis; Bilateral pneumonia; Alcohol dependence; Elevated liver function tests Seen and examined at bedside; 24hour events reviewed; nursing and respiratory care staff consulted; no adverse overnight events reported to me; resting in bed; denies acute chest pains or palpitations; remains on supplemental oxygen; No N/V/F/C Objective Vital Signs - 12hr 07/16/20 07/16/20 07/16/20 01:30 02:00 02:30 Temperature Pulse Rate 120 H 112 H 115 H Pulse Rate [ From Monitor] Respiratory 19 25 H 15 Rate Blood Pressure 122/68 126/75 116/65 O2 Sat by Pulse 95 100 100 Oximetry 07/16/20 07/16/20 07/16/20 03:00 03:18 03:30 Temperature 97.7 F Pulse Rate 113 H 112 H Pulse Rate [ From Monitor] Respiratory 12 20 Rate Blood Pressure 125/68 114/60 O2 Sat by Pulse 100 100 Oximetry 07/16/20 07/16/20 07/16/20 04:00 04:30 05:00 Temperature Pulse Rate 114 H 110 H 110 H Pulse Rate [ 110 H From Monitor] Respiratory 22 24 22 Rate Blood Pressure 114/66 119/72 121/74 O2 Sat by Pulse 99 99 100 Oximetry 07/16/20 07/16/20 07/16/20 05:30 06:00 06:30 Temperature Pulse Rate 105 H 109 H 109 H Pulse Rate [ From Monitor] Respiratory 22 23 24 Rate Blood Pressure 119/70 117/70 126/70 O2 Sat by Pulse 99 98 98 Oximetry 07/16/20 07/16/20 07/16/20 07:00 07:30 08:00 Temperature Pulse Rate 119 H 110 H 107 H Pulse Rate [ 121 H From Monitor] Respiratory 25 H 25 H 25 H Rate Blood Pressure 126/67 117/65 111/66 O2 Sat by Pulse 99 99 100 Oximetry 07/16/20 07/16/20 07/16/20 08:03 08:30 09:00 Temperature Pulse Rate 104 H 106 H Pulse Rate [ From Monitor] Respiratory 22 24 Rate Blood Pressure 106/65 112/68 O2 Sat by Pulse 100 100 100 Oximetry 07/16/20 07/16/20 07/16/20 09:30 10:00 10:30 Temperature Pulse Rate 108 H 109 H 119 H Pulse Rate [ From Monitor] Respiratory 22 29 H 25 H Rate Blood Pressure 104/71 113/66 112/57 O2 Sat by Pulse 99 97 98 Oximetry 07/16/20 07/16/20 11:00 11:30 Temperature Pulse Rate 116 H Pulse Rate [ From Monitor] Respiratory 24 35 H Rate Blood Pressure 116/68 108/60 O2 Sat by Pulse 99 78 L Oximetry Constitutional: no acute distress, other (middle aged obese male with mildly increased respiratory effort at rest ) Eyes: non-icteric ENT: oropharynx moist, other (extubated) Neck: supple, no JVD Effort: mildly labored Ascultation: Bilateral: diminished breath sounds, rhonchi (scant), other (right chest tube) Percussion: Bilateral: not dull Cardiovascular: regular rate and rhythm, other (No R/M) Gastrointestinal: normoactive bowel sounds, soft, non-tender, non-distended (protuberant), other (distended and firm) Integumentary: normal Extremities: no cyanosis, no edema, pulses normal, no ischemia or petechiae Neurologic: non-focal exam (non focal grossly; weak), pupils equal and round, CN II-XII normal, motor strength normal and (very weak ) Psychiatric: mood appropriate, affect normal CBC and BMP: 07/16/20 05:19 07/16/20 05:19 ABG, PT/INR, D-dimer: ABG ABG pH 7.477 (7.320-7.450) H 07/13/20 13:52 POC ABG pCO2 54.4 mmHg (32.0-48.0) H 07/13/20 13:52 ABG pCO2 53.1 mm Hg 07/08/20 Unknown POC ABG pO2 126.8 mmHg (83-108) H 07/13/20 13:52 ABG pO2 75.3 mm Hg (80.0-90.0) L 07/08/20 Unknown POC ABG HCO3 39.3 07/13/20 13:52 ABG O2 Saturation 96.5 % (95.0-99.0) 07/08/20 Unknown PT/INR, D-dimer PT 11.8 Sec. (12.2-14.9) L 06/22/20 14:29 INR 0.88 (0.87-1.13) 06/22/20 14:29 D-Dimer 1887.82 ng/mlDDU (0-234) H 05/20/20 08:16 Abnormal lab findings: Abnormal Labs 05/09/20 05/09/2005/09/20 12:59 12:59 12:59 WBC 11.8 H RBC Hgb Hct MCV 96 H MCH 34 H MCHC 35 H RDW Lymph % (Auto) 6.9 L [place] % (Auto) Lymph # (Auto) 0.8 L [place] # (Auto) Baso # (Auto) Seg Neutrophils % 87.5 H Seg Neuts % (Manual) Lymphocytes % (Manual) Nucleated RBC % Seg Neutrophils # 10.3 H Seg Neutrophils # Man Lymphocytes # (Manual) Monocytes # (Manual) Eosinophils # (Manual) PT INR APTT D-Dimer Heparin Anti-Xa Level ABG pH POC ABG pCO2 POC ABG pO2 ABG pO2 ABG HCO3 ABG O2 Saturation ABG Base Excess ABG Hemoglobin ABG Oxyhemoglobin ABG Sodium ABG Potassium ABG Chloride ABG Glucose Oxyhemoglobin Carboxyhemoglobin Sodium 130 L Potassium 3.5 L Chloride 86.4 L Carbon Dioxide BUN 33 H Creatinine 2.3 H Glucose 156 H POC Glucose Lactic Acid Calcium Magnesium Ferritin Total Bilirubin 3.40 H Direct Bilirubin 1.7 H AST 385 H ALT 134 H Alkaline Phosphatase Lactate Dehydrogenase C-Reactive Protein Total Protein Albumin 3.0 L Triglycerides Lipase Arterial Blood Glucose Arterial Blood Ionized Calcium Urine WBC (Auto) Coronavirus (PCR) SARS-CoV-2 IgG Ab Crossmatch 05/09/20 05/09/20 05/09/20 12:59 12:59 12:59 WBC RBC Hgb Hct MCV MCH MCHC RDW Lymph % (Auto) [place] % (Auto) Lymph # (Auto) [place] # (Auto) Baso # (Auto) Seg Neutrophils % Seg Neuts % (Manual) Lymphocytes % (Manual) Nucleated RBC % Seg Neutrophils # Seg Neutrophils # Man Lymphocytes # (Manual) Monocytes # (Manual) Eosinophils # (Manual) PT INR APTT D-Dimer 3242.51 H Heparin Anti-Xa Level ABG pH POC ABG pCO2 POC ABG pO2 ABG pO2 ABG HCO3 ABG O2 Saturation ABG Base Excess ABG Hemoglobin ABG Oxyhemoglobin ABG Sodium ABG Potassium ABG Chloride ABG Glucose Oxyhemoglobin Carboxyhemoglobin Sodium Potassium Chloride Carbon Dioxide BUN Creatinine Glucose 158 H POC Glucose Lactic Acid 3.50 H* Calcium Magnesium Ferritin Total Bilirubin Direct Bilirubin AST ALT Alkaline Phosphatase Lactate Dehydrogenase 2166 H C-Reactive Protein 39.00 H Total Protein Albumin Triglycerides Lipase Arterial Blood Glucose Arterial Blood Ionized Calcium Urine WBC (Auto) Coronavirus (PCR) SARS-CoV-2 IgG Ab Crossmatch 05/09/20 05/09/20 05/09/20 12:59 14:20 14:20 WBC RBC Hgb Hct MCV MCH MCHC RDW Lymph % (Auto) [place] % (Auto) Lymph # (Auto) [place] # (Auto) Baso # (Auto) Seg Neutrophils % Seg Neuts % (Manual) Lymphocytes % (Manual) Nucleated RBC % Seg Neutrophils # Seg Neutrophils # Man Lymphocytes # (Manual) Monocytes # (Manual) Eosinophils # (Manual) PT INR APTT D-Dimer 2861.78 H Heparin Anti-Xa Level ABG pH POC ABG pCO2 POC ABG pO2 ABG pO2 ABG HCO3 ABG O2 Saturation ABG Base Excess ABG Hemoglobin ABG Oxyhemoglobin ABG Sodium ABG Potassium ABG Chloride ABG Glucose Oxyhemoglobin Carboxyhemoglobin Sodium Potassium Chloride Carbon Dioxide BUN Creatinine Glucose POC Glucose Lactic Acid 2.20 H* Calcium Magnesium Ferritin 99512.0 H Total Bilirubin Direct Bilirubin AST ALT Alkaline Phosphatase Lactate Dehydrogenase C-Reactive Protein Total Protein Albumin Triglycerides Lipase Arterial Blood Glucose Arterial Blood Ionized Calcium Urine WBC (Auto) Coronavirus (PCR) SARS-CoV-2 IgG Ab Crossmatch 05/09/20 05/09/20 05/09/20 14:20 14:20 15:56 WBC RBC Hgb Hct MCV MCH MCHC RDW Lymph % (Auto) [place] % (Auto) Lymph # (Auto) [place] # (Auto) Baso # (Auto) Seg Neutrophils % Seg Neuts % (Manual) Lymphocytes % (Manual) Nucleated RBC % Seg Neutrophils # Seg Neutrophils # Man Lymphocytes # (Manual) Monocytes # (Manual) Eosinophils # (Manual) PT INR APTT D-Dimer Heparin Anti-Xa Level ABG pH POC ABG pCO2 POC ABG pO2 57.3 L ABG pO2 ABG HCO3 ABG O2 Saturation ABG Base Excess ABG Hemoglobin ABG Oxyhemoglobin 86.3 L ABG Sodium 129.9 L ABG Potassium ABG Chloride ABG Glucose 146 H Oxyhemoglobin Carboxyhemoglobin Sodium Potassium Chloride Carbon Dioxide BUN Creatinine Glucose 143 H POC Glucose Lactic Acid Calcium Magnesium Ferritin 67252.0 H Total Bilirubin Direct Bilirubin AST ALT Alkaline Phosphatase Lactate Dehydrogenase 1953 H C-Reactive Protein 33.50 H Total Protein Albumin Triglycerides Lipase Arterial Blood Glucose 146 H Arterial Blood Ionized Calcium 3.9 L Urine WBC (Auto) Coronavirus (PCR) SARS-CoV-2 IgG Ab Crossmatch 05/10/20 05/10/20 05/10/20 10:32 10:32 18:50 WBC 15.4 H RBC Hgb Hct MCV 97 H MCH 33 H MCHC RDW 13.1 L Lymph % (Auto) [place] % (Auto) Lymph # (Auto) [place] # (Auto) Baso # (Auto) Seg Neutrophils % Seg Neuts % (Manual) 89.0 H Lymphocytes % (Manual) 8.0 L Nucleated RBC % Seg Neutrophils # Seg Neutrophils # Man 13.7 H Lymphocytes # (Manual) Monocytes # (Manual) Eosinophils # (Manual) PT INR APTT D-Dimer Heparin Anti-Xa Level ABG pH POC ABG pCO2 POC ABG pO2 ABG pO2 ABG HCO3 ABG O2 Saturation ABG Base Excess ABG Hemoglobin ABG Oxyhemoglobin ABG Sodium ABG Potassium ABG Chloride ABG Glucose Oxyhemoglobin Carboxyhemoglobin Sodium 136 L Potassium Chloride 97.4 L Carbon Dioxide BUN 37 H Creatinine 1.7 H Glucose 209 H POC Glucose Lactic Acid Calcium Magnesium Ferritin > 2000.0 H Total Bilirubin Direct Bilirubin AST ALT Alkaline Phosphatase Lactate Dehydrogenase C-Reactive Protein Total Protein Albumin Triglycerides Lipase Arterial Blood Glucose Arterial Blood Ionized Calcium Urine WBC (Auto) Coronavirus (PCR) SARS-CoV-2 IgG Ab Crossmatch 05/10/20 05/10/20 05/10/20 18:50 19:00 Unknown WBC RBC Hgb Hct MCV MCH MCHC RDW Lymph % (Auto) [place] % (Auto) Lymph # (Auto) [place] # (Auto) Baso # (Auto) Seg Neutrophils % Seg Neuts % (Manual) Lymphocytes % (Manual) Nucleated RBC % Seg Neutrophils # Seg Neutrophils # Man Lymphocytes # (Manual) Monocytes # (Manual) Eosinophils # (Manual) PT INR APTT D-Dimer > 80236 H Heparin Anti-Xa Level ABG pH POC ABG pCO2 POC ABG pO2 ABG pO2 ABG HCO3 ABG O2 Saturation ABG Base Excess ABG Hemoglobin ABG Oxyhemoglobin ABG Sodium ABG Potassium ABG Chloride ABG Glucose Oxyhemoglobin Carboxyhemoglobin Sodium Potassium Chloride Carbon Dioxide BUN Creatinine Glucose POC Glucose Lactic Acid Calcium Magnesium Ferritin Total Bilirubin Direct Bilirubin AST ALT Alkaline Phosphatase Lactate Dehydrogenase 1879 H C-Reactive Protein 24.80 H Total Protein Albumin Triglycerides Lipase Arterial Blood Glucose Arterial Blood Ionized Calcium Urine WBC (Auto) 11.0 H Coronavirus (PCR) SARS-CoV-2 IgG Ab Crossmatch 05/10/20 05/11/20 05/11/20 Unknown 07:30 07:30 WBC RBC Hgb Hct MCV MCH MCHC RDW Lymph % (Auto) [place] % (Auto) Lymph # (Auto) [place] # (Auto) Baso # (Auto) Seg Neutrophils % Seg Neuts % (Manual) Lymphocytes % (Manual) Nucleated RBC % Seg Neutrophils # Seg Neutrophils # Man Lymphocytes # (Manual) Monocytes # (Manual) Eosinophils # (Manual) PT INR APTT D-Dimer > 2000 H Heparin Anti-Xa Level ABG pH POC ABG pCO2 POC ABG pO2 ABG pO2 ABG HCO3 ABG O2 Saturation ABG Base Excess ABG Hemoglobin ABG Oxyhemoglobin ABG Sodium ABG Potassium ABG Chloride ABG Glucose Oxyhemoglobin Carboxyhemoglobin Sodium Potassium Chloride 96.3 L Carbon Dioxide BUN 36 H Creatinine Glucose 161 H POC Glucose Lactic Acid Calcium 8.3 L Magnesium Ferritin Total Bilirubin 1.50 H Direct Bilirubin 0.6 H AST 178 H ALT 111 H Alkaline Phosphatase Lactate Dehydrogenase C-Reactive Protein Total Protein Albumin 3.0 L Triglycerides Lipase Arterial Blood Glucose Arterial Blood Ionized Calcium Urine WBC (Auto) Coronavirus (PCR) Positive A SARS-CoV-2 IgG Ab Crossmatch 05/11/20 05/11/20 05/11/20 07:30 07:30 07:30 WBC RBC Hgb Hct MCV MCH MCHC RDW Lymph % (Auto) [place] % (Auto) Lymph # (Auto) [place] # (Auto) Baso # (Auto) Seg Neutrophils % Seg Neuts % (Manual) Lymphocytes % (Manual) Nucleated RBC % Seg Neutrophils # Seg Neutrophils # Man Lymphocytes # (Manual) Monocytes # (Manual) Eosinophils # (Manual) PT INR APTT D-Dimer Heparin Anti-Xa Level ABG pH POC ABG pCO2 POC ABG pO2 ABG pO2 ABG HCO3 ABG O2 Saturation ABG Base Excess ABG Hemoglobin ABG Oxyhemoglobin ABG Sodium ABG Potassium ABG Chloride ABG Glucose Oxyhemoglobin Carboxyhemoglobin Sodium Potassium Chloride Carbon Dioxide BUN Creatinine Glucose POC Glucose Lactic Acid Calcium Magnesium Ferritin 02804.0 H Total Bilirubin Direct Bilirubin AST ALT Alkaline Phosphatase Lactate Dehydrogenase 1523 H C-Reactive Protein 12.90 H Total Protein Albumin Triglycerides Lipase Arterial Blood Glucose Arterial Blood Ionized Calcium Urine WBC (Auto) Coronavirus (PCR) SARS-CoV-2 IgG Ab Reactive A Crossmatch 05/13/20 05/13/20 05/15/20 05:20 05:20 08:15 WBC RBC Hgb Hct MCV MCH MCHC RDW Lymph % (Auto) [place] % (Auto) Lymph # (Auto) [place] # (Auto) Baso # (Auto) Seg Neutrophils % Seg Neuts % (Manual) Lymphocytes % (Manual) Nucleated RBC % Seg Neutrophils # Seg Neutrophils # Man Lymphocytes # (Manual) Monocytes # (Manual) Eosinophils # (Manual) PT INR APTT D-Dimer > 47599 H 5318.28 H Heparin Anti-Xa Level ABG pH POC ABG pCO2 POC ABG pO2 ABG pO2 ABG HCO3 ABG O2 Saturation ABG Base Excess ABG Hemoglobin ABG Oxyhemoglobin ABG Sodium ABG Potassium ABG Chloride ABG Glucose Oxyhemoglobin Carboxyhemoglobin Sodium Potassium Chloride Carbon Dioxide 32 H BUN 30 H Creatinine Glucose 156 H POC Glucose Lactic Acid Calcium Magnesium 2.60 H Ferritin Total Bilirubin 1.40 H Direct Bilirubin AST 121 H ALT 119 H Alkaline Phosphatase Lactate Dehydrogenase 957 H C-Reactive Protein 4.00 H Total Protein Albumin 3.0 L Triglycerides Lipase Arterial Blood Glucose Arterial Blood Ionized Calcium Urine WBC (Auto) Coronavirus (PCR) SARS-CoV-2 IgG Ab Crossmatch 05/15/20 05/15/20 05/15/20 08:15 08:15 08:15 WBC 12.4 H RBC Hgb Hct MCV 98 H MCH 33 H MCHC RDW Lymph % (Auto) 9.7 L [place] % (Auto) Lymph # (Auto) [place] # (Auto) Baso # (Auto) Seg Neutrophils % 86.8 H Seg Neuts % (Manual) Lymphocytes % (Manual) Nucleated RBC % Seg Neutrophils # 10.8 H Seg Neutrophils # Man Lymphocytes # (Manual) Monocytes # (Manual) Eosinophils # (Manual) PT INR APTT D-Dimer Heparin Anti-Xa Level ABG pH POC ABG pCO2 POC ABG pO2 ABG pO2 ABG HCO3 ABG O2 Saturation ABG Base Excess ABG Hemoglobin ABG Oxyhemoglobin ABG Sodium ABG Potassium ABG Chloride ABG Glucose Oxyhemoglobin Carboxyhemoglobin Sodium Potassium Chloride 94.8 L Carbon Dioxide 32 H BUN 22 H Creatinine Glucose 115 H POC Glucose Lactic Acid Calcium 8.3 L Magnesium Ferritin 2494.0 H Total Bilirubin Direct Bilirubin AST 73 H ALT 121 H Alkaline Phosphatase Lactate Dehydrogenase 835 H C-Reactive Protein 3.40 H Total Protein 6.1 L Albumin 3.0 L Triglycerides Lipase Arterial Blood Glucose Arterial Blood Ionized Calcium Urine WBC (Auto) Coronavirus (PCR) SARS-CoV-2 IgG Ab Crossmatch 05/17/20 05/17/20 05/17/20 05:50 05:50 05:50 WBC RBC Hgb Hct MCV MCH MCHC RDW Lymph % (Auto) [place] % (Auto) Lymph # (Auto) [place] # (Auto) Baso # (Auto) Seg Neutrophils % Seg Neuts % (Manual) Lymphocytes % (Manual) Nucleated RBC % Seg Neutrophils # Seg Neutrophils # Man Lymphocytes # (Manual) Monocytes # (Manual) Eosinophils # (Manual) PT INR APTT D-Dimer 2911.42 H Heparin Anti-Xa Level ABG pH POC ABG pCO2 POC ABG pO2 ABG pO2 ABG HCO3 ABG O2 Saturation ABG Base Excess ABG Hemoglobin ABG Oxyhemoglobin ABG Sodium ABG Potassium ABG Chloride ABG Glucose Oxyhemoglobin Carboxyhemoglobin Sodium 136 L Potassium Chloride 96.0 L Carbon Dioxide 34 H BUN 22 H Creatinine Glucose 140 H POC Glucose Lactic Acid Calcium Magnesium Ferritin 2082.0 H Total Bilirubin Direct Bilirubin AST ALT 75 H Alkaline Phosphatase Lactate Dehydrogenase 601 H C-Reactive Protein 2.70 H Total Protein Albumin 2.9 L Triglycerides Lipase Arterial Blood Glucose Arterial Blood Ionized Calcium Urine WBC (Auto) Coronavirus (PCR) SARS-CoV-2 IgG Ab Crossmatch 05/17/20 05/18/20 05/20/20 05:50 12:22 08:16 WBC RBC Hgb Hct MCV 98 H MCH 33 H MCHC RDW Lymph % (Auto) 8.0 L [place] % (Auto) Lymph # (Auto) 0.8 L [place] # (Auto) Baso # (Auto) Seg Neutrophils % 89.3 H Seg Neuts % (Manual) Lymphocytes % (Manual) Nucleated RBC % Seg Neutrophils # 8.8 H Seg Neutrophils # Man Lymphocytes # (Manual) Monocytes # (Manual) Eosinophils # (Manual) PT INR APTT D-Dimer 1887.82 H Heparin Anti-Xa Level ABG pH POC ABG pCO2 POC ABG pO2 ABG pO2 ABG HCO3 ABG O2 Saturation ABG Base Excess ABG Hemoglobin ABG Oxyhemoglobin ABG Sodium ABG Potassium ABG Chloride ABG Glucose Oxyhemoglobin Carboxyhemoglobin Sodium Potassium Chloride Carbon Dioxide BUN Creatinine Glucose POC Glucose 178 H Lactic Acid Calcium Magnesium Ferritin Total Bilirubin Direct Bilirubin AST ALT Alkaline Phosphatase Lactate Dehydrogenase C-Reactive Protein Total Protein Albumin Triglycerides Lipase Arterial Blood Glucose Arterial Blood Ionized Calcium Urine WBC (Auto) Coronavirus (PCR) SARS-CoV-2 IgG Ab Crossmatch 05/20/20 05/20/20 05/21/20 08:16 08:16 21:10 WBC RBC Hgb Hct MCV MCH MCHC RDW Lymph % (Auto) [place] % (Auto) Lymph # (Auto) [place] # (Auto) Baso # (Auto) Seg Neutrophils % Seg Neuts % (Manual) Lymphocytes % (Manual) Nucleated RBC % Seg Neutrophils # Seg Neutrophils # Man Lymphocytes # (Manual) Monocytes # (Manual) Eosinophils # (Manual) PT INR APTT D-Dimer Heparin Anti-Xa Level ABG pH 7.483 H POC ABG pCO2 POC ABG pO2 ABG pO2 50.0 L ABG HCO3 27.0 H ABG O2 Saturation 86.2 L ABG Base Excess 3.7 H ABG Hemoglobin ABG Oxyhemoglobin ABG Sodium ABG Potassium ABG Chloride ABG Glucose Oxyhemoglobin 84.2 L Carboxyhemoglobin Sodium Potassium Chloride Carbon Dioxide BUN Creatinine Glucose POC Glucose Lactic Acid Calcium Magnesium Ferritin 1960.0 H Total Bilirubin Direct Bilirubin AST ALT Alkaline Phosphatase Lactate Dehydrogenase 705 H C-Reactive Protein 3.10 H Total Protein Albumin Triglycerides Lipase Arterial Blood Glucose Arterial Blood Ionized Calcium Urine WBC (Auto) Coronavirus (PCR) SARS-CoV-2 IgG Ab Crossmatch 05/22/20 05/22/20 05/22/20 04:01 07:53 07:53 WBC 19.2 H RBC Hgb Hct MCV 98 H MCH 34 H MCHC RDW Lymph % (Auto) [place] % (Auto) Lymph # (Auto) [place] # (Auto) Baso # (Auto) Seg Neutrophils % Seg Neuts % (Manual) 96.0 H Lymphocytes % (Manual) 1.0 L Nucleated RBC % Seg Neutrophils # Seg Neutrophils # Man 18.4 H Lymphocytes # (Manual) 0.2 L Monocytes # (Manual) Eosinophils # (Manual) PT INR APTT D-Dimer Heparin Anti-Xa Level ABG pH POC ABG pCO2 53.8 H POC ABG pO2 125.5 H ABG pO2 ABG HCO3 ABG O2 Saturation ABG Base Excess ABG Hemoglobin ABG Oxyhemoglobin ABG Sodium 131.8 L ABG Potassium 4.8 H ABG Chloride 94.0 L ABG Glucose 163 H Oxyhemoglobin Carboxyhemoglobin Sodium 131 L Potassium Chloride 93.4 L Carbon Dioxide BUN 40 H Creatinine Glucose 176 H POC Glucose Lactic Acid Calcium Magnesium 2.70 H Ferritin Total Bilirubin 1.80 H Direct Bilirubin AST 45 H ALT 116 H Alkaline Phosphatase 181 H Lactate Dehydrogenase C-Reactive Protein Total Protein Albumin 2.6 L Triglycerides Lipase Arterial Blood Glucose 163 H Arterial Blood Ionized Calcium 4.5 L Urine WBC (Auto) Coronavirus (PCR) SARS-CoV-2 IgG Ab Crossmatch 05/23/20 05/24/20 05/24/20 04:17 03:07 04:08 WBC RBC Hgb Hct MCV MCH MCHC RDW Lymph % (Auto) [place] % (Auto) Lymph # (Auto) [place] # (Auto) Baso # (Auto) Seg Neutrophils % Seg Neuts % (Manual) Lymphocytes % (Manual) Nucleated RBC % Seg Neutrophils # Seg Neutrophils # Man Lymphocytes # (Manual) Monocytes # (Manual) Eosinophils # (Manual) PT INR APTT D-Dimer Heparin Anti-Xa Level ABG pH 7.328 L POC ABG pCO2 POC ABG pO2 ABG pO2 72.8 L 73.4 L ABG HCO3 31.0 H 34.0 H ABG O2 Saturation 93.5 L ABG Base Excess 3.5 H 7.7 H ABG Hemoglobin 13.3 L 12.1 L ABG Oxyhemoglobin ABG Sodium ABG Potassium ABG Chloride ABG Glucose Oxyhemoglobin 91.5 L 94.3 L Carboxyhemoglobin Sodium Potassium Chloride Carbon Dioxide BUN Creatinine Glucose POC Glucose 155 H Lactic Acid Calcium Magnesium Ferritin Total Bilirubin Direct Bilirubin AST ALT Alkaline Phosphatase Lactate Dehydrogenase C-Reactive Protein Total Protein Albumin Triglycerides Lipase Arterial Blood Glucose Arterial Blood Ionized Calcium Urine WBC (Auto) Coronavirus (PCR) SARS-CoV-2 IgG Ab Crossmatch 05/24/20 05/24/20 05/24/20 09:33 12:21 17:52 WBC RBC Hgb Hct MCV MCH MCHC RDW Lymph % (Auto) [place] % (Auto) Lymph # (Auto) [place] # (Auto) Baso # (Auto) Seg Neutrophils % Seg Neuts % (Manual) Lymphocytes % (Manual) Nucleated RBC % Seg Neutrophils # Seg Neutrophils # Man Lymphocytes # (Manual) Monocytes # (Manual) Eosinophils # (Manual) PT INR APTT D-Dimer Heparin Anti-Xa Level ABG pH POC ABG pCO2 POC ABG pO2 ABG pO2 ABG HCO3 ABG O2 Saturation ABG Base Excess ABG Hemoglobin ABG Oxyhemoglobin ABG Sodium ABG Potassium ABG Chloride ABG Glucose Oxyhemoglobin Carboxyhemoglobin Sodium Potassium Chloride Carbon Dioxide 34 H D BUN 28 H Creatinine 0.7 L Glucose 168 H POC Glucose 173 H 164 H Lactic Acid Calcium Magnesium Ferritin Total Bilirubin Direct Bilirubin AST ALT Alkaline Phosphatase Lactate Dehydrogenase C-Reactive Protein Total Protein Albumin Triglycerides Lipase Arterial Blood Glucose Arterial Blood Ionized Calcium Urine WBC (Auto) Coronavirus (PCR) SARS-CoV-2 IgG Ab Crossmatch 05/24/20 05/25/20 05/25/20 23:47 04:29 05:46 WBC RBC Hgb Hct MCV MCH MCHC RDW Lymph % (Auto) [place] % (Auto) Lymph # (Auto) [place] # (Auto) Baso # (Auto) Seg Neutrophils % Seg Neuts % (Manual) Lymphocytes % (Manual) Nucleated RBC % Seg Neutrophils # Seg Neutrophils # Man Lymphocytes # (Manual) Monocytes # (Manual) Eosinophils # (Manual) PT INR APTT D-Dimer Heparin Anti-Xa Level ABG pH POC ABG pCO2 68.6 H POC ABG pO2 ABG pO2 ABG HCO3 ABG O2 Saturation ABG Base Excess ABG Hemoglobin ABG Oxyhemoglobin ABG Sodium ABG Potassium 4.7 H ABG Chloride ABG Glucose 226 H Oxyhemoglobin Carboxyhemoglobin Sodium Potassium Chloride Carbon Dioxide BUN Creatinine Glucose POC Glucose 171 H 201 H Lactic Acid Calcium Magnesium Ferritin Total Bilirubin Direct Bilirubin AST ALT Alkaline Phosphatase Lactate Dehydrogenase C-Reactive Protein Total Protein Albumin Triglycerides Lipase Arterial Blood Glucose 226 H Arterial Blood Ionized Calcium Urine WBC (Auto) Coronavirus (PCR) SARS-CoV-2 IgG Ab Crossmatch 05/25/20 05/25/20 05/25/20 08:37 08:37 12:38 WBC 12.0 H RBC 3.64 L Hgb Hct MCV 99 H MCH 33 H MCHC RDW Lymph % (Auto) [place] % (Auto) Lymph # (Auto) [place] # (Auto) Baso # (Auto) Seg Neutrophils % Seg Neuts % (Manual) Lymphocytes % (Manual) Nucleated RBC % Seg Neutrophils # Seg Neutrophils # Man Lymphocytes # (Manual) Monocytes # (Manual) Eosinophils # (Manual) PT INR APTT D-Dimer Heparin Anti-Xa Level ABG pH POC ABG pCO2 POC ABG pO2 ABG pO2 ABG HCO3 ABG O2 Saturation ABG Base Excess ABG Hemoglobin ABG Oxyhemoglobin ABG Sodium ABG Potassium ABG Chloride ABG Glucose Oxyhemoglobin Carboxyhemoglobin Sodium Potassium Chloride 97.3 L Carbon Dioxide 35 H BUN 25 H Creatinine 0.7 L Glucose 191 H POC Glucose 182 H Lactic Acid Calcium Magnesium Ferritin Total Bilirubin Direct Bilirubin AST ALT Alkaline Phosphatase Lactate Dehydrogenase C-Reactive Protein Total Protein Albumin Triglycerides Lipase Arterial Blood Glucose Arterial Blood Ionized Calcium Urine WBC (Auto) Coronavirus (PCR) SARS-CoV-2 IgG Ab Crossmatch 05/25/20 05/26/20 05/26/20 18:16 00:06 04:50 WBC RBC Hgb Hct MCV MCH MCHC RDW Lymph % (Auto) [place] % (Auto) Lymph # (Auto) [place] # (Auto) Baso # (Auto) Seg Neutrophils % Seg Neuts % (Manual) Lymphocytes % (Manual) Nucleated RBC % Seg Neutrophils # Seg Neutrophils # Man Lymphocytes # (Manual) Monocytes # (Manual) Eosinophils # (Manual) PT INR APTT D-Dimer Heparin Anti-Xa Level ABG pH POC ABG pCO2 POC ABG pO2 ABG pO2 221.5 H ABG HCO3 40.4 H ABG O2 Saturation 99.3 H ABG Base Excess 12.8 H ABG Hemoglobin 10.4 L ABG Oxyhemoglobin ABG Sodium ABG Potassium ABG Chloride ABG Glucose Oxyhemoglobin Carboxyhemoglobin Sodium Potassium Chloride Carbon Dioxide BUN Creatinine Glucose POC Glucose 176 H 152 H Lactic Acid Calcium Magnesium Ferritin Total Bilirubin Direct Bilirubin AST ALT Alkaline Phosphatase Lactate Dehydrogenase C-Reactive Protein Total Protein Albumin Triglycerides Lipase Arterial Blood Glucose Arterial Blood Ionized Calcium Urine WBC (Auto) Coronavirus (PCR) SARS-CoV-2 IgG Ab Crossmatch 05/26/20 05/26/20 05/26/20 06:11 07:51 07:51 WBC 13.4 H RBC 3.64 L Hgb Hct MCV 98 H MCH 33 H MCHC RDW Lymph % (Auto) [place] % (Auto) Lymph # (Auto) [place] # (Auto) Baso # (Auto) Seg Neutrophils % Seg Neuts % (Manual) Lymphocytes % (Manual) Nucleated RBC % Seg Neutrophils # Seg Neutrophils # Man Lymphocytes # (Manual) Monocytes # (Manual) Eosinophils # (Manual) PT INR APTT D-Dimer Heparin Anti-Xa Level ABG pH POC ABG pCO2 POC ABG pO2 ABG pO2 ABG HCO3 ABG O2 Saturation ABG Base Excess ABG Hemoglobin ABG Oxyhemoglobin ABG Sodium ABG Potassium ABG Chloride ABG Glucose Oxyhemoglobin Carboxyhemoglobin Sodium Potassium Chloride 96.6 L Carbon Dioxide 39 H BUN 29 H Creatinine 0.7 L Glucose 174 H POC Glucose 165 H Lactic Acid Calcium Magnesium Ferritin Total Bilirubin Direct Bilirubin AST ALT Alkaline Phosphatase Lactate Dehydrogenase C-Reactive Protein Total Protein Albumin Triglycerides Lipase Arterial Blood Glucose Arterial Blood Ionized Calcium Urine WBC (Auto) Coronavirus (PCR) SARS-CoV-2 IgG Ab Crossmatch 05/26/20 05/27/20 05/27/20 23:23 03:43 05:29 WBC RBC Hgb Hct MCV MCH MCHC RDW Lymph % (Auto) [place] % (Auto) Lymph # (Auto) [place] # (Auto) Baso # (Auto) Seg Neutrophils % Seg Neuts % (Manual) Lymphocytes % (Manual) Nucleated RBC % Seg Neutrophils # Seg Neutrophils # Man Lymphocytes # (Manual) Monocytes # (Manual) Eosinophils # (Manual) PT INR APTT D-Dimer Heparin Anti-Xa Level ABG pH 7.480 H POC ABG pCO2 52.4 H POC ABG pO2 61.4 L ABG pO2 ABG HCO3 ABG O2 Saturation ABG Base Excess ABG Hemoglobin ABG Oxyhemoglobin ABG Sodium 134.9 L ABG Potassium ABG Chloride 95.0 L ABG Glucose 221 H Oxyhemoglobin Carboxyhemoglobin Sodium Potassium Chloride Carbon Dioxide BUN Creatinine Glucose POC Glucose 169 H 227 H Lactic Acid Calcium Magnesium Ferritin Total Bilirubin Direct Bilirubin AST ALT Alkaline Phosphatase Lactate Dehydrogenase C-Reactive Protein Total Protein Albumin Triglycerides Lipase Arterial Blood Glucose 221 H Arterial Blood Ionized Calcium 4.5 L Urine WBC (Auto) Coronavirus (PCR) SARS-CoV-2 IgG Ab Crossmatch 05/27/20 05/27/20 05/27/20 07:19 12:18 13:50 WBC RBC Hgb Hct MCV MCH MCHC RDW Lymph % (Auto) [place] % (Auto) Lymph # (Auto) [place] # (Auto) Baso # (Auto) Seg Neutrophils % Seg Neuts % (Manual) Lymphocytes % (Manual) Nucleated RBC % Seg Neutrophils # Seg Neutrophils # Man Lymphocytes # (Manual) Monocytes # (Manual) Eosinophils # (Manual) PT INR APTT D-Dimer Heparin Anti-Xa Level ABG pH POC ABG pCO2 POC ABG pO2 ABG pO2 ABG HCO3 ABG O2 Saturation ABG Base Excess ABG Hemoglobin ABG Oxyhemoglobin ABG Sodium ABG Potassium ABG Chloride ABG Glucose Oxyhemoglobin Carboxyhemoglobin Sodium Potassium Chloride Carbon Dioxide BUN Creatinine Glucose POC Glucose 114 H 148 H Lactic Acid Calcium Magnesium Ferritin Total Bilirubin Direct Bilirubin AST ALT Alkaline Phosphatase Lactate Dehydrogenase C-Reactive Protein Total Protein Albumin Triglycerides 247 H Lipase Arterial Blood Glucose Arterial Blood Ionized Calcium Urine WBC (Auto) Coronavirus (PCR) SARS-CoV-2 IgG Ab Crossmatch 05/28/20 05/28/20 05/28/20 00:13 04:16 05:22 WBC RBC Hgb Hct MCV MCH MCHC RDW Lymph % (Auto) [place] % (Auto) Lymph # (Auto) [place] # (Auto) Baso # (Auto) Seg Neutrophils % Seg Neuts % (Manual) Lymphocytes % (Manual) Nucleated RBC % Seg Neutrophils # Seg Neutrophils # Man Lymphocytes # (Manual) Monocytes # (Manual) Eosinophils # (Manual) PT INR APTT D-Dimer Heparin Anti-Xa Level ABG pH POC ABG pCO2 64.4 H POC ABG pO2 60.5 L ABG pO2 ABG HCO3 ABG O2 Saturation ABG Base Excess ABG Hemoglobin ABG Oxyhemoglobin ABG Sodium ABG Potassium ABG Chloride 95.0 L ABG Glucose 209 H Oxyhemoglobin Carboxyhemoglobin Sodium Potassium Chloride Carbon Dioxide BUN Creatinine Glucose POC Glucose 155 H 186 H Lactic Acid Calcium Magnesium Ferritin Total Bilirubin Direct Bilirubin AST ALT Alkaline Phosphatase Lactate Dehydrogenase C-Reactive Protein Total Protein Albumin Triglycerides Lipase Arterial Blood Glucose 209 H Arterial Blood Ionized Calcium Urine WBC (Auto) Coronavirus (PCR) SARS-CoV-2 IgG Ab Crossmatch 05/28/20 05/28/20 05/29/20 12:45 17:39 00:37 WBC RBC Hgb Hct MCV MCH MCHC RDW Lymph % (Auto) [place] % (Auto) Lymph # (Auto) [place] # (Auto) Baso # (Auto) Seg Neutrophils % Seg Neuts % (Manual) Lymphocytes % (Manual) Nucleated RBC % Seg Neutrophils # Seg Neutrophils # Man Lymphocytes # (Manual) Monocytes # (Manual) Eosinophils # (Manual) PT INR APTT D-Dimer Heparin Anti-Xa Level ABG pH POC ABG pCO2 POC ABG pO2 ABG pO2 ABG HCO3 ABG O2 Saturation ABG Base Excess ABG Hemoglobin ABG Oxyhemoglobin ABG Sodium ABG Potassium ABG Chloride ABG Glucose Oxyhemoglobin Carboxyhemoglobin Sodium Potassium Chloride Carbon Dioxide BUN Creatinine Glucose POC Glucose 143 H 164 H 221 H Lactic Acid Calcium Magnesium Ferritin Total Bilirubin Direct Bilirubin AST ALT Alkaline Phosphatase Lactate Dehydrogenase C-Reactive Protein Total Protein Albumin Triglycerides Lipase Arterial Blood Glucose Arterial Blood Ionized Calcium Urine WBC (Auto) Coronavirus (PCR) SARS-CoV-2 IgG Ab Crossmatch 05/29/20 05/29/20 05/29/20 04:15 05:33 12:34 WBC RBC Hgb Hct MCV MCH MCHC RDW Lymph % (Auto) [place] % (Auto) Lymph # (Auto) [place] # (Auto) Baso # (Auto) Seg Neutrophils % Seg Neuts % (Manual) Lymphocytes % (Manual) Nucleated RBC % Seg Neutrophils # Seg Neutrophils # Man Lymphocytes # (Manual) Monocytes # (Manual) Eosinophils # (Manual) PT INR APTT D-Dimer Heparin Anti-Xa Level ABG pH 7.463 H POC ABG pCO2 56.3 H POC ABG pO2 81.2 L ABG pO2 ABG HCO3 ABG O2 Saturation ABG Base Excess ABG Hemoglobin ABG Oxyhemoglobin ABG Sodium ABG Potassium ABG Chloride 96.0 L ABG Glucose 194 H Oxyhemoglobin Carboxyhemoglobin Sodium Potassium Chloride Carbon Dioxide BUN Creatinine Glucose POC Glucose 133 H 221 H Lactic Acid Calcium Magnesium Ferritin Total Bilirubin Direct Bilirubin AST ALT Alkaline Phosphatase Lactate Dehydrogenase C-Reactive Protein Total Protein Albumin Triglycerides Lipase Arterial Blood Glucose 194 H Arterial Blood Ionized Calcium 4.5 L Urine WBC (Auto) Coronavirus (PCR) SARS-CoV-2 IgG Ab Crossmatch 05/29/20 05/30/20 05/30/20 18:07 00:12 05:38 WBC RBC Hgb Hct MCV MCH MCHC RDW Lymph % (Auto) [place] % (Auto) Lymph # (Auto) [place] # (Auto) Baso # (Auto) Seg Neutrophils % Seg Neuts % (Manual) Lymphocytes % (Manual) Nucleated RBC % Seg Neutrophils # Seg Neutrophils # Man Lymphocytes # (Manual) Monocytes # (Manual) Eosinophils # (Manual) PT INR APTT D-Dimer Heparin Anti-Xa Level ABG pH POC ABG pCO2 POC ABG pO2 ABG pO2 ABG HCO3 ABG O2 Saturation ABG Base Excess ABG Hemoglobin ABG Oxyhemoglobin ABG Sodium ABG Potassium ABG Chloride ABG Glucose Oxyhemoglobin Carboxyhemoglobin Sodium Potassium Chloride Carbon Dioxide BUN Creatinine Glucose POC Glucose 162 H 190 H 208 H Lactic Acid Calcium Magnesium Ferritin Total Bilirubin Direct Bilirubin AST ALT Alkaline Phosphatase Lactate Dehydrogenase C-Reactive Protein Total Protein Albumin Triglycerides Lipase Arterial Blood Glucose Arterial Blood Ionized Calcium Urine WBC (Auto) Coronavirus (PCR) SARS-CoV-2 IgG Ab Crossmatch 05/30/20 05/30/20 05/30/20 09:30 11:35 11:54 WBC 12.4 H RBC 3.48 L Hgb 11.3 L Hct 34.6 L MCV 99 H MCH 33 H MCHC RDW Lymph % (Auto) [place] % (Auto) Lymph # (Auto) [place] # (Auto) Baso # (Auto) Seg Neutrophils % Seg Neuts % (Manual) Lymphocytes % (Manual) Nucleated RBC % Seg Neutrophils # Seg Neutrophils # Man Lymphocytes # (Manual) Monocytes # (Manual) Eosinophils # (Manual) PT INR APTT D-Dimer Heparin Anti-Xa Level ABG pH 7.455 H POC ABG pCO2 57.5 H POC ABG pO2 81.5 L ABG pO2 ABG HCO3 ABG O2 Saturation ABG Base Excess ABG Hemoglobin ABG Oxyhemoglobin ABG Sodium ABG Potassium ABG Chloride 96.0 L ABG Glucose 204 H Oxyhemoglobin Carboxyhemoglobin Sodium Potassium Chloride Carbon Dioxide BUN Creatinine Glucose POC Glucose 183 H Lactic Acid Calcium Magnesium Ferritin Total Bilirubin Direct Bilirubin AST ALT Alkaline Phosphatase Lactate Dehydrogenase C-Reactive Protein Total Protein Albumin Triglycerides Lipase Arterial Blood Glucose 204 H Arterial Blood Ionized Calcium Urine WBC (Auto) Coronavirus (PCR) SARS-CoV-2 IgG Ab Crossmatch 05/30/20 05/31/20 05/31/20 18:01 00:10 03:22 WBC RBC Hgb Hct MCV MCH MCHC RDW Lymph % (Auto) [place] % (Auto) Lymph # (Auto) [place] # (Auto) Baso # (Auto) Seg Neutrophils % Seg Neuts % (Manual) Lymphocytes % (Manual) Nucleated RBC % Seg Neutrophils # Seg Neutrophils # Man Lymphocytes # (Manual) Monocytes # (Manual) Eosinophils # (Manual) PT INR APTT D-Dimer Heparin Anti-Xa Level ABG pH POC ABG pCO2 60.4 H POC ABG pO2 71.5 L ABG pO2 ABG HCO3 ABG O2 Saturation ABG Base Excess ABG Hemoglobin ABG Oxyhemoglobin ABG Sodium ABG Potassium ABG Chloride 96.0 L ABG Glucose 169 H Oxyhemoglobin Carboxyhemoglobin Sodium Potassium Chloride Carbon Dioxide BUN Creatinine Glucose POC Glucose 184 H 135 H Lactic Acid Calcium Magnesium Ferritin Total Bilirubin Direct Bilirubin AST ALT Alkaline Phosphatase Lactate Dehydrogenase C-Reactive Protein Total Protein Albumin Triglycerides Lipase Arterial Blood Glucose 169 H Arterial Blood Ionized Calcium 4.5 L Urine WBC (Auto) Coronavirus (PCR) SARS-CoV-2 IgG Ab Crossmatch 05/31/20 05/31/20 05/31/20 05:24 11:18 14:41 WBC RBC Hgb Hct MCV MCH MCHC RDW Lymph % (Auto) [place] % (Auto) Lymph # (Auto) [place] # (Auto) Baso # (Auto) Seg Neutrophils % Seg Neuts % (Manual) Lymphocytes % (Manual) Nucleated RBC % Seg Neutrophils # Seg Neutrophils # Man Lymphocytes # (Manual) Monocytes # (Manual) Eosinophils # (Manual) PT INR APTT D-Dimer Heparin Anti-Xa Level ABG pH POC ABG pCO2 POC ABG pO2 ABG pO2 ABG HCO3 ABG O2 Saturation ABG Base Excess ABG Hemoglobin ABG Oxyhemoglobin ABG Sodium ABG Potassium ABG Chloride ABG Glucose Oxyhemoglobin Carboxyhemoglobin Sodium Potassium Chloride 96.8 L Carbon Dioxide 37 H BUN 31 H Creatinine 0.6 L Glucose 213 H POC Glucose 164 H 208 H Lactic Acid Calcium Magnesium Ferritin Total Bilirubin Direct Bilirubin AST ALT Alkaline Phosphatase Lactate Dehydrogenase C-Reactive Protein Total Protein Albumin Triglycerides Lipase Arterial Blood Glucose Arterial Blood Ionized Calcium Urine WBC (Auto) Coronavirus (PCR) SARS-CoV-2 IgG Ab Crossmatch 05/31/20 05/31/20 06/01/20 17:37 23:47 03:48 WBC RBC Hgb Hct MCV MCH MCHC RDW Lymph % (Auto) [place] % (Auto) Lymph # (Auto) [place] # (Auto) Baso # (Auto) Seg Neutrophils % Seg Neuts % (Manual) Lymphocytes % (Manual) Nucleated RBC % Seg Neutrophils # Seg Neutrophils # Man Lymphocytes # (Manual) Monocytes # (Manual) Eosinophils # (Manual) PT INR APTT D-Dimer Heparin Anti-Xa Level ABG pH POC ABG pCO2 59.7 H POC ABG pO2 73.9 L ABG pO2 ABG HCO3 ABG O2 Saturation ABG Base Excess ABG Hemoglobin ABG Oxyhemoglobin ABG Sodium ABG Potassium ABG Chloride 95.0 L ABG Glucose 256 H Oxyhemoglobin Carboxyhemoglobin Sodium Potassium Chloride Carbon Dioxide BUN Creatinine Glucose POC Glucose 168 H 178 H Lactic Acid Calcium Magnesium Ferritin Total Bilirubin Direct Bilirubin AST ALT Alkaline Phosphatase Lactate Dehydrogenase C-Reactive Protein Total Protein Albumin Triglycerides Lipase Arterial Blood Glucose 256 H Arterial Blood Ionized Calcium Urine WBC (Auto) Coronavirus (PCR) SARS-CoV-2 IgG Ab Crossmatch 06/01/20 06/01/20 06/01/20 05:01 07:47 07:47 WBC 14.4 H RBC 3.46 L Hgb 11.1 L Hct 34.3 L MCV 99 H MCH MCHC RDW Lymph % (Auto) [place] % (Auto) Lymph # (Auto) [place] # (Auto) Baso # (Auto) Seg Neutrophils % Seg Neuts % (Manual) 86.0 H Lymphocytes % (Manual) 9.0 L Nucleated RBC % Seg Neutrophils # Seg Neutrophils # Man 12.4 H Lymphocytes # (Manual) Monocytes # (Manual) Eosinophils # (Manual) PT INR APTT D-Dimer Heparin Anti-Xa Level ABG pH POC ABG pCO2 POC ABG pO2 ABG pO2 ABG HCO3 ABG O2 Saturation ABG Base Excess ABG Hemoglobin ABG Oxyhemoglobin ABG Sodium ABG Potassium ABG Chloride ABG Glucose Oxyhemoglobin Carboxyhemoglobin Sodium Potassium Chloride Carbon Dioxide BUN Creatinine Glucose POC Glucose 197 H Lactic Acid Calcium Magnesium Ferritin Total Bilirubin Direct Bilirubin AST ALT Alkaline Phosphatase Lactate Dehydrogenase C-Reactive Protein Total Protein Albumin Triglycerides 244 H Lipase Arterial Blood Glucose Arterial Blood Ionized Calcium Urine WBC (Auto) Coronavirus (PCR) SARS-CoV-2 IgG Ab Crossmatch 06/01/20 06/01/20 06/01/20 07:47 11:46 18:15 WBC RBC Hgb Hct MCV MCH MCHC RDW Lymph % (Auto) [place] % (Auto) Lymph # (Auto) [place] # (Auto) Baso # (Auto) Seg Neutrophils % Seg Neuts % (Manual) Lymphocytes % (Manual) Nucleated RBC % Seg Neutrophils # Seg Neutrophils # Man Lymphocytes # (Manual) Monocytes # (Manual) Eosinophils # (Manual) PT INR APTT D-Dimer Heparin Anti-Xa Level ABG pH POC ABG pCO2 POC ABG pO2 ABG pO2 ABG HCO3 ABG O2 Saturation ABG Base Excess ABG Hemoglobin ABG Oxyhemoglobin ABG Sodium ABG Potassium ABG Chloride ABG Glucose Oxyhemoglobin Carboxyhemoglobin Sodium Potassium Chloride 95.4 L Carbon Dioxide 35 H BUN 30 H Creatinine 0.5 L Glucose 214 H POC Glucose 181 H 221 H Lactic Acid Calcium Magnesium Ferritin Total Bilirubin Direct Bilirubin AST 54 H ALT 235 H Alkaline Phosphatase Lactate Dehydrogenase C-Reactive Protein Total Protein Albumin 2.9 L Triglycerides Lipase Arterial Blood Glucose Arterial Blood Ionized Calcium Urine WBC (Auto) Coronavirus (PCR) SARS-CoV-2 IgG Ab Crossmatch 06/01/20 06/02/20 06/02/20 23:12 04:00 05:31 WBC RBC Hgb Hct MCV MCH MCHC RDW Lymph % (Auto) [place] % (Auto) Lymph # (Auto) [place] # (Auto) Baso # (Auto) Seg Neutrophils % Seg Neuts % (Manual) Lymphocytes % (Manual) Nucleated RBC % Seg Neutrophils # Seg Neutrophils # Man Lymphocytes # (Manual) Monocytes # (Manual) Eosinophils # (Manual) PT INR APTT D-Dimer Heparin Anti-Xa Level ABG pH 7.465 H POC ABG pCO2 POC ABG pO2 ABG pO2 203.4 H ABG HCO3 41.2 H ABG O2 Saturation 99.3 H ABG Base Excess 15.1 H ABG Hemoglobin 11.5 L ABG Oxyhemoglobin ABG Sodium ABG Potassium ABG Chloride ABG Glucose Oxyhemoglobin Carboxyhemoglobin Sodium Potassium Chloride Carbon Dioxide BUN Creatinine Glucose POC Glucose 197 H 184 H Lactic Acid Calcium Magnesium Ferritin Total Bilirubin Direct Bilirubin AST ALT Alkaline Phosphatase Lactate Dehydrogenase C-Reactive Protein Total Protein Albumin Triglycerides Lipase Arterial Blood Glucose Arterial Blood Ionized Calcium Urine WBC (Auto) Coronavirus (PCR) SARS-CoV-2 IgG Ab Crossmatch 06/02/20 06/02/20 06/02/20 11:49 18:06 23:00 WBC RBC Hgb Hct MCV MCH MCHC RDW Lymph % (Auto) [place] % (Auto) Lymph # (Auto) [place] # (Auto) Baso # (Auto) Seg Neutrophils % Seg Neuts % (Manual) Lymphocytes % (Manual) Nucleated RBC % Seg Neutrophils # Seg Neutrophils # Man Lymphocytes # (Manual) Monocytes # (Manual) Eosinophils # (Manual) PT INR APTT D-Dimer Heparin Anti-Xa Level ABG pH POC ABG pCO2 POC ABG pO2 ABG pO2 ABG HCO3 ABG O2 Saturation ABG Base Excess ABG Hemoglobin ABG Oxyhemoglobin ABG Sodium ABG Potassium ABG Chloride ABG Glucose Oxyhemoglobin Carboxyhemoglobin Sodium Potassium Chloride Carbon Dioxide BUN Creatinine Glucose POC Glucose 195 H 177 H 228 H Lactic Acid Calcium Magnesium Ferritin Total Bilirubin Direct Bilirubin AST ALT Alkaline Phosphatase Lactate Dehydrogenase C-Reactive Protein Total Protein Albumin Triglycerides Lipase Arterial Blood Glucose Arterial Blood Ionized Calcium Urine WBC (Auto) Coronavirus (PCR) SARS-CoV-2 IgG Ab Crossmatch 06/03/20 06/03/20 06/03/20 03:58 05:19 12:21 WBC RBC Hgb Hct MCV MCH MCHC RDW Lymph % (Auto) [place] % (Auto) Lymph # (Auto) [place] # (Auto) Baso # (Auto) Seg Neutrophils % Seg Neuts % (Manual) Lymphocytes % (Manual) Nucleated RBC % Seg Neutrophils # Seg Neutrophils # Man Lymphocytes # (Manual) Monocytes # (Manual) Eosinophils # (Manual) PT INR APTT D-Dimer Heparin Anti-Xa Level ABG pH POC ABG pCO2 POC ABG pO2 ABG pO2 171.0 H ABG HCO3 42.8 H ABG O2 Saturation ABG Base Excess 15.6 H ABG Hemoglobin 12.3 L ABG Oxyhemoglobin ABG Sodium ABG Potassium ABG Chloride ABG Glucose Oxyhemoglobin Carboxyhemoglobin Sodium Potassium Chloride Carbon Dioxide BUN Creatinine Glucose POC Glucose 122 H 207 H Lactic Acid Calcium Magnesium Ferritin Total Bilirubin Direct Bilirubin AST ALT Alkaline Phosphatase Lactate Dehydrogenase C-Reactive Protein Total Protein Albumin Triglycerides Lipase Arterial Blood Glucose Arterial Blood Ionized Calcium Urine WBC (Auto) Coronavirus (PCR) SARS-CoV-2 IgG Ab Crossmatch 06/03/20 06/03/20 06/04/20 17:27 23:50 03:55 WBC RBC Hgb Hct MCV MCH MCHC RDW Lymph % (Auto) [place] % (Auto) Lymph # (Auto) [place] # (Auto) Baso # (Auto) Seg Neutrophils % Seg Neuts % (Manual) Lymphocytes % (Manual) Nucleated RBC % Seg Neutrophils # Seg Neutrophils # Man Lymphocytes # (Manual) Monocytes # (Manual) Eosinophils # (Manual) PT INR APTT D-Dimer Heparin Anti-Xa Level ABG pH POC ABG pCO2 POC ABG pO2 ABG pO2 117.2 H ABG HCO3 42.4 H ABG O2 Saturation ABG Base Excess 15.3 H ABG Hemoglobin 10.5 L ABG Oxyhemoglobin ABG Sodium ABG Potassium ABG Chloride ABG Glucose Oxyhemoglobin Carboxyhemoglobin Sodium Potassium Chloride Carbon Dioxide BUN Creatinine Glucose POC Glucose 157 H 214 H Lactic Acid Calcium Magnesium Ferritin Total Bilirubin Direct Bilirubin AST ALT Alkaline Phosphatase Lactate Dehydrogenase C-Reactive Protein Total Protein Albumin Triglycerides Lipase Arterial Blood Glucose Arterial Blood Ionized Calcium Urine WBC (Auto) Coronavirus (PCR) SARS-CoV-2 IgG Ab Crossmatch 06/04/20 06/04/20 06/04/20 05:49 11:41 17:30 WBC RBC Hgb Hct MCV MCH MCHC RDW Lymph % (Auto) [place] % (Auto) Lymph # (Auto) [place] # (Auto) Baso # (Auto) Seg Neutrophils % Seg Neuts % (Manual) Lymphocytes % (Manual) Nucleated RBC % Seg Neutrophils # Seg Neutrophils # Man Lymphocytes # (Manual) Monocytes # (Manual) Eosinophils # (Manual) PT INR APTT D-Dimer Heparin Anti-Xa Level ABG pH POC ABG pCO2 POC ABG pO2 ABG pO2 ABG HCO3 ABG O2 Saturation ABG Base Excess ABG Hemoglobin ABG Oxyhemoglobin ABG Sodium ABG Potassium ABG Chloride ABG Glucose Oxyhemoglobin Carboxyhemoglobin Sodium Potassium Chloride Carbon Dioxide BUN Creatinine Glucose POC Glucose 149 H 233 H 156 H Lactic Acid Calcium Magnesium Ferritin Total Bilirubin Direct Bilirubin AST ALT Alkaline Phosphatase Lactate Dehydrogenase C-Reactive Protein Total Protein Albumin Triglycerides Lipase Arterial Blood Glucose Arterial Blood Ionized Calcium Urine WBC (Auto) Coronavirus (PCR) SARS-CoV-2 IgG Ab Crossmatch 06/04/20 06/04/20 06/04/20 19:01 20:53 23:41 WBC RBC 3.18 L Hgb 10.8 L Hct 31.8 L MCV 100 H MCH 34 H MCHC RDW Lymph % (Auto) [place] % (Auto) Lymph # (Auto) [place] # (Auto) Baso # (Auto) Seg Neutrophils % Seg Neuts % (Manual) 86.0 H Lymphocytes % (Manual) 10.0 L Nucleated RBC % 1.0 H Seg Neutrophils # Seg Neutrophils # Man 8.5 H Lymphocytes # (Manual) 1.0 L Monocytes # (Manual) Eosinophils # (Manual) PT INR APTT D-Dimer Heparin Anti-Xa Level ABG pH POC ABG pCO2 POC ABG pO2 ABG pO2 ABG HCO3 ABG O2 Saturation ABG Base Excess ABG Hemoglobin ABG Oxyhemoglobin ABG Sodium ABG Potassium ABG Chloride ABG Glucose Oxyhemoglobin Carboxyhemoglobin Sodium Potassium 3.4 L D Chloride 96.5 L Carbon Dioxide 41 H* BUN 27 H Creatinine 0.5 L Glucose 173 H POC Glucose 217 H Lactic Acid Calcium Magnesium Ferritin Total Bilirubin Direct Bilirubin AST ALT Alkaline Phosphatase Lactate Dehydrogenase C-Reactive Protein Total Protein Albumin Triglycerides Lipase Arterial Blood Glucose Arterial Blood Ionized Calcium Urine WBC (Auto) Coronavirus (PCR) SARS-CoV-2 IgG Ab Crossmatch 06/05/20 06/05/20 06/05/20 06:05 11:54 12:35 WBC RBC Hgb Hct MCV MCH MCHC RDW Lymph % (Auto) [place] % (Auto) Lymph # (Auto) [place] # (Auto) Baso # (Auto) Seg Neutrophils % Seg Neuts % (Manual) Lymphocytes % (Manual) Nucleated RBC % Seg Neutrophils # Seg Neutrophils # Man Lymphocytes # (Manual) Monocytes # (Manual) Eosinophils # (Manual) PT INR APTT D-Dimer Heparin Anti-Xa Level ABG pH POC ABG pCO2 POC ABG pO2 ABG pO2 127.9 H ABG HCO3 41.1 H ABG O2 Saturation ABG Base Excess 13.0 H ABG Hemoglobin 13.4 L ABG Oxyhemoglobin ABG Sodium ABG Potassium ABG Chloride ABG Glucose Oxyhemoglobin Carboxyhemoglobin Sodium Potassium Chloride Carbon Dioxide BUN Creatinine Glucose POC Glucose 137 H 211 H Lactic Acid Calcium Magnesium Ferritin Total Bilirubin Direct Bilirubin AST ALT Alkaline Phosphatase Lactate Dehydrogenase C-Reactive Protein Total Protein Albumin Triglycerides Lipase Arterial Blood Glucose Arterial Blood Ionized Calcium Urine WBC (Auto) Coronavirus (PCR) SARS-CoV-2 IgG Ab Crossmatch 06/05/20 06/05/20 06/06/20 17:03 23:49 04:42 WBC RBC Hgb Hct MCV MCH MCHC RDW Lymph % (Auto) [place] % (Auto) Lymph # (Auto) [place] # (Auto) Baso # (Auto) Seg Neutrophils % Seg Neuts % (Manual) Lymphocytes % (Manual) Nucleated RBC % Seg Neutrophils # Seg Neutrophils # Man Lymphocytes # (Manual) Monocytes # (Manual) Eosinophils # (Manual) PT INR APTT D-Dimer Heparin Anti-Xa Level ABG pH POC ABG pCO2 56.1 H POC ABG pO2 52.5 L ABG pO2 ABG HCO3 ABG O2 Saturation ABG Base Excess ABG Hemoglobin 11.7 L ABG Oxyhemoglobin ABG Sodium ABG Potassium 3.3 L ABG Chloride 95.0 L ABG Glucose 156 H Oxyhemoglobin Carboxyhemoglobin Sodium Potassium Chloride Carbon Dioxide BUN Creatinine Glucose POC Glucose 159 H 194 H Lactic Acid Calcium Magnesium Ferritin Total Bilirubin Direct Bilirubin AST ALT Alkaline Phosphatase Lactate Dehydrogenase C-Reactive Protein Total Protein Albumin Triglycerides Lipase Arterial Blood Glucose 156 H Arterial Blood Ionized Calcium Urine WBC (Auto) Coronavirus (PCR) SARS-CoV-2 IgG Ab Crossmatch 06/06/20 06/06/20 06/06/20 05:57 12:06 17:38 WBC RBC Hgb Hct MCV MCH MCHC RDW Lymph % (Auto) [place] % (Auto) Lymph # (Auto) [place] # (Auto) Baso # (Auto) Seg Neutrophils % Seg Neuts % (Manual) Lymphocytes % (Manual) Nucleated RBC % Seg Neutrophils # Seg Neutrophils # Man Lymphocytes # (Manual) Monocytes # (Manual) Eosinophils # (Manual) PT INR APTT D-Dimer Heparin Anti-Xa Level ABG pH POC ABG pCO2 POC ABG pO2 ABG pO2 ABG HCO3 ABG O2 Saturation ABG Base Excess ABG Hemoglobin ABG Oxyhemoglobin ABG Sodium ABG Potassium ABG Chloride ABG Glucose Oxyhemoglobin Carboxyhemoglobin Sodium Potassium Chloride Carbon Dioxide BUN Creatinine Glucose POC Glucose 144 H 230 H 162 H Lactic Acid Calcium Magnesium Ferritin Total Bilirubin Direct Bilirubin AST ALT Alkaline Phosphatase Lactate Dehydrogenase C-Reactive Protein Total Protein Albumin Triglycerides Lipase Arterial Blood Glucose Arterial Blood Ionized Calcium Urine WBC (Auto) Coronavirus (PCR) SARS-CoV-2 IgG Ab Crossmatch 06/06/20 06/07/20 06/07/20 23:50 04:34 06:03 WBC RBC Hgb Hct MCV MCH MCHC RDW Lymph % (Auto) [place] % (Auto) Lymph # (Auto) [place] # (Auto) Baso # (Auto) Seg Neutrophils % Seg Neuts % (Manual) Lymphocytes % (Manual) Nucleated RBC % Seg Neutrophils # Seg Neutrophils # Man Lymphocytes # (Manual) Monocytes # (Manual) Eosinophils # (Manual) PT INR APTT D-Dimer Heparin Anti-Xa Level ABG pH 7.511 H POC ABG pCO2 53.5 H POC ABG pO2 114.5 H ABG pO2 ABG HCO3 ABG O2 Saturation ABG Base Excess ABG Hemoglobin 9.4 L ABG Oxyhemoglobin ABG Sodium 134.5 L ABG Potassium ABG Chloride 94.0 L ABG Glucose 186 H Oxyhemoglobin Carboxyhemoglobin Sodium Potassium Chloride Carbon Dioxide BUN Creatinine Glucose POC Glucose 181 H 155 H Lactic Acid Calcium Magnesium Ferritin Total Bilirubin Direct Bilirubin AST ALT Alkaline Phosphatase Lactate Dehydrogenase C-Reactive Protein Total Protein Albumin Triglycerides Lipase Arterial Blood Glucose 186 H Arterial Blood Ionized Calcium 4.5 L Urine WBC (Auto) Coronavirus (PCR) SARS-CoV-2 IgG Ab Crossmatch 06/07/20 06/07/20 06/07/20 13:41 14:58 14:58 WBC RBC 2.72 L Hgb 9.3 L Hct 27.2 L MCV 100 H MCH 34 H MCHC RDW Lymph % (Auto) [place] % (Auto) Lymph # (Auto) [place] # (Auto) Baso # (Auto) Seg Neutrophils % Seg Neuts % (Manual) Lymphocytes % (Manual) Nucleated RBC % Seg Neutrophils # Seg Neutrophils # Man Lymphocytes # (Manual) Monocytes # (Manual) Eosinophils # (Manual) PT INR APTT D-Dimer Heparin Anti-Xa Level ABG pH POC ABG pCO2 POC ABG pO2 ABG pO2 ABG HCO3 ABG O2 Saturation ABG Base Excess ABG Hemoglobin ABG Oxyhemoglobin ABG Sodium ABG Potassium ABG Chloride ABG Glucose Oxyhemoglobin Carboxyhemoglobin Sodium Potassium Chloride 93.5 L Carbon Dioxide 39 H BUN 22 H Creatinine 0.4 L Glucose 188 H POC Glucose 201 H Lactic Acid Calcium Magnesium Ferritin Total Bilirubin Direct Bilirubin AST 61 H ALT 273 H Alkaline Phosphatase Lactate Dehydrogenase C-Reactive Protein Total Protein 5.9 L Albumin 2.7 L Triglycerides Lipase Arterial Blood Glucose Arterial Blood Ionized Calcium Urine WBC (Auto) Coronavirus (PCR) SARS-CoV-2 IgG Ab Crossmatch 06/07/20 06/08/20 06/08/20 23:18 05:31 12:07 WBC RBC Hgb Hct MCV MCH MCHC RDW Lymph % (Auto) [place] % (Auto) Lymph # (Auto) [place] # (Auto) Baso # (Auto) Seg Neutrophils % Seg Neuts % (Manual) Lymphocytes % (Manual) Nucleated RBC % Seg Neutrophils # Seg Neutrophils # Man Lymphocytes # (Manual) Monocytes # (Manual) Eosinophils # (Manual) PT INR APTT D-Dimer Heparin Anti-Xa Level ABG pH POC ABG pCO2 POC ABG pO2 ABG pO2 ABG HCO3 ABG O2 Saturation ABG Base Excess ABG Hemoglobin ABG Oxyhemoglobin ABG Sodium ABG Potassium ABG Chloride ABG Glucose Oxyhemoglobin Carboxyhemoglobin Sodium Potassium Chloride Carbon Dioxide BUN Creatinine Glucose POC Glucose 214 H 129 H 179 H Lactic Acid Calcium Magnesium Ferritin Total Bilirubin Direct Bilirubin AST ALT Alkaline Phosphatase Lactate Dehydrogenase C-Reactive Protein Total Protein Albumin Triglycerides Lipase Arterial Blood Glucose Arterial Blood Ionized Calcium Urine WBC (Auto) Coronavirus (PCR) SARS-CoV-2 IgG Ab Crossmatch 06/08/20 06/08/20 06/09/20 18:18 23:35 05:42 WBC RBC Hgb Hct MCV MCH MCHC RDW Lymph % (Auto) [place] % (Auto) Lymph # (Auto) [place] # (Auto) Baso # (Auto) Seg Neutrophils % Seg Neuts % (Manual) Lymphocytes % (Manual) Nucleated RBC % Seg Neutrophils # Seg Neutrophils # Man Lymphocytes # (Manual) Monocytes # (Manual) Eosinophils # (Manual) PT INR APTT D-Dimer Heparin Anti-Xa Level ABG pH POC ABG pCO2 POC ABG pO2 ABG pO2 ABG HCO3 ABG O2 Saturation ABG Base Excess ABG Hemoglobin ABG Oxyhemoglobin ABG Sodium ABG Potassium ABG Chloride ABG Glucose Oxyhemoglobin Carboxyhemoglobin Sodium Potassium Chloride Carbon Dioxide BUN Creatinine Glucose POC Glucose 172 H 177 H 137 H Lactic Acid Calcium Magnesium Ferritin Total Bilirubin Direct Bilirubin AST ALT Alkaline Phosphatase Lactate Dehydrogenase C-Reactive Protein Total Protein Albumin Triglycerides Lipase Arterial Blood Glucose Arterial Blood Ionized Calcium Urine WBC (Auto) Coronavirus (PCR) SARS-CoV-2 IgG Ab Crossmatch 06/09/20 06/09/20 06/09/20 06:20 07:55 07:55 WBC 12.4 H RBC 3.26 L Hgb 11.1 L Hct 33.4 L D MCV 102 H MCH 34 H MCHC RDW Lymph % (Auto) [place] % (Auto) Lymph # (Auto) [place] # (Auto) Baso # (Auto) Seg Neutrophils % Seg Neuts % (Manual) Lymphocytes % (Manual) Nucleated RBC % Seg Neutrophils # Seg Neutrophils # Man Lymphocytes # (Manual) Monocytes # (Manual) Eosinophils # (Manual) PT INR APTT D-Dimer Heparin Anti-Xa Level ABG pH 7.466 H POC ABG pCO2 50.7 H POC ABG pO2 53.0 L ABG pO2 ABG HCO3 ABG O2 Saturation ABG Base Excess ABG Hemoglobin ABG Oxyhemoglobin ABG Sodium ABG Potassium 2.9 L ABG Chloride 93.0 L ABG Glucose 138 H Oxyhemoglobin Carboxyhemoglobin Sodium Potassium 3.0 L Chloride 92.3 L Carbon Dioxide 37 H BUN 21 H Creatinine 0.6 L Glucose 120 H POC Glucose Lactic Acid Calcium Magnesium Ferritin Total Bilirubin Direct Bilirubin AST ALT Alkaline Phosphatase Lactate Dehydrogenase C-Reactive Protein Total Protein Albumin Triglycerides Lipase Arterial Blood Glucose 138 H Arterial Blood Ionized Calcium 4.5 L Urine WBC (Auto) Coronavirus (PCR) SARS-CoV-2 IgG Ab Crossmatch 06/09/20 06/09/20 06/10/20 11:22 18:32 04:46 WBC RBC Hgb Hct MCV MCH MCHC RDW Lymph % (Auto) [place] % (Auto) Lymph # (Auto) [place] # (Auto) Baso # (Auto) Seg Neutrophils % Seg Neuts % (Manual) Lymphocytes % (Manual) Nucleated RBC % Seg Neutrophils # Seg Neutrophils # Man Lymphocytes # (Manual) Monocytes # (Manual) Eosinophils # (Manual) PT INR APTT D-Dimer Heparin Anti-Xa Level ABG pH 7.501 H POC ABG pCO2 POC ABG pO2 126.5 H ABG pO2 ABG HCO3 ABG O2 Saturation ABG Base Excess ABG Hemoglobin 10.3 L ABG Oxyhemoglobin ABG Sodium ABG Potassium ABG Chloride ABG Glucose 220 H Oxyhemoglobin Carboxyhemoglobin Sodium Potassium Chloride Carbon Dioxide BUN Creatinine Glucose POC Glucose 117 H 121 H Lactic Acid Calcium Magnesium Ferritin Total Bilirubin Direct Bilirubin AST ALT Alkaline Phosphatase Lactate Dehydrogenase C-Reactive Protein Total Protein Albumin Triglycerides Lipase Arterial Blood Glucose 220 H Arterial Blood Ionized Calcium Urine WBC (Auto) Coronavirus (PCR) SARS-CoV-2 IgG Ab Crossmatch 06/10/20 06/10/20 06/10/20 05:30 09:38 12:03 WBC RBC Hgb Hct MCV MCH MCHC RDW Lymph % (Auto) [place] % (Auto) Lymph # (Auto) [place] # (Auto) Baso # (Auto) Seg Neutrophils % Seg Neuts % (Manual) Lymphocytes % (Manual) Nucleated RBC % Seg Neutrophils # Seg Neutrophils # Man Lymphocytes # (Manual) Monocytes # (Manual) Eosinophils # (Manual) PT INR APTT D-Dimer Heparin Anti-Xa Level ABG pH POC ABG pCO2 POC ABG pO2 ABG pO2 ABG HCO3 ABG O2 Saturation ABG Base Excess ABG Hemoglobin ABG Oxyhemoglobin ABG Sodium ABG Potassium ABG Chloride ABG Glucose Oxyhemoglobin Carboxyhemoglobin Sodium Potassium Chloride Carbon Dioxide BUN Creatinine Glucose POC Glucose 181 H 204 H Lactic Acid Calcium Magnesium Ferritin Total Bilirubin Direct Bilirubin AST ALT Alkaline Phosphatase Lactate Dehydrogenase C-Reactive Protein Total Protein Albumin Triglycerides 738 H Lipase Arterial Blood Glucose Arterial Blood Ionized Calcium Urine WBC (Auto) Coronavirus (PCR) SARS-CoV-2 IgG Ab Crossmatch 06/10/20 06/11/20 06/11/20 17:17 00:04 04:38 WBC RBC Hgb Hct MCV MCH MCHC RDW Lymph % (Auto) [place] % (Auto) Lymph # (Auto) [place] # (Auto) Baso # (Auto) Seg Neutrophils % Seg Neuts % (Manual) Lymphocytes % (Manual) Nucleated RBC % Seg Neutrophils # Seg Neutrophils # Man Lymphocytes # (Manual) Monocytes # (Manual) Eosinophils # (Manual) PT INR APTT D-Dimer Heparin Anti-Xa Level ABG pH 7.479 H POC ABG pCO2 POC ABG pO2 76.7 L ABG pO2 ABG HCO3 ABG O2 Saturation ABG Base Excess ABG Hemoglobin 9.8 L ABG Oxyhemoglobin ABG Sodium 135.8 L ABG Potassium ABG Chloride ABG Glucose 238 H Oxyhemoglobin Carboxyhemoglobin Sodium Potassium Chloride Carbon Dioxide BUN Creatinine Glucose POC Glucose 156 H 178 H Lactic Acid Calcium Magnesium Ferritin Total Bilirubin Direct Bilirubin AST ALT Alkaline Phosphatase Lactate Dehydrogenase C-Reactive Protein Total Protein Albumin Triglycerides Lipase Arterial Blood Glucose 238 H Arterial Blood Ionized Calcium Urine WBC (Auto) Coronavirus (PCR) SARS-CoV-2 IgG Ab Crossmatch 06/11/20 06/11/20 06/11/20 05:21 06:52 11:50 WBC RBC Hgb Hct MCV MCH MCHC RDW Lymph % (Auto) [place] % (Auto) Lymph # (Auto) [place] # (Auto) Baso # (Auto) Seg Neutrophils % Seg Neuts % (Manual) Lymphocytes % (Manual) Nucleated RBC % Seg Neutrophils # Seg Neutrophils # Man Lymphocytes # (Manual) Monocytes # (Manual) Eosinophils # (Manual) PT INR APTT D-Dimer Heparin Anti-Xa Level ABG pH POC ABG pCO2 POC ABG pO2 ABG pO2 ABG HCO3 ABG O2 Saturation ABG Base Excess ABG Hemoglobin ABG Oxyhemoglobin ABG Sodium ABG Potassium ABG Chloride ABG Glucose Oxyhemoglobin Carboxyhemoglobin Sodium Potassium Chloride Carbon Dioxide BUN Creatinine Glucose POC Glucose 215 H 187 H Lactic Acid Calcium Magnesium Ferritin Total Bilirubin Direct Bilirubin AST ALT Alkaline Phosphatase Lactate Dehydrogenase C-Reactive Protein Total Protein Albumin Triglycerides 331 H Lipase Arterial Blood Glucose Arterial Blood Ionized Calcium Urine WBC (Auto) Coronavirus (PCR) SARS-CoV-2 IgG Ab Crossmatch 06/11/20 06/11/20 06/12/20 17:49 23:35 04:52 WBC RBC Hgb Hct MCV MCH MCHC RDW Lymph % (Auto) [place] % (Auto) Lymph # (Auto) [place] # (Auto) Baso # (Auto) Seg Neutrophils % Seg Neuts % (Manual) Lymphocytes % (Manual) Nucleated RBC % Seg Neutrophils # Seg Neutrophils # Man Lymphocytes # (Manual) Monocytes # (Manual) Eosinophils # (Manual) PT INR APTT D-Dimer Heparin Anti-Xa Level ABG pH 7.486 H POC ABG pCO2 POC ABG pO2 ABG pO2 ABG HCO3 ABG O2 Saturation ABG Base Excess ABG Hemoglobin 9.4 L ABG Oxyhemoglobin ABG Sodium ABG Potassium 3.2 L ABG Chloride ABG Glucose 209 H Oxyhemoglobin Carboxyhemoglobin Sodium Potassium Chloride Carbon Dioxide BUN Creatinine Glucose POC Glucose 211 H 200 H Lactic Acid Calcium Magnesium Ferritin Total Bilirubin Direct Bilirubin AST ALT Alkaline Phosphatase Lactate Dehydrogenase C-Reactive Protein Total Protein Albumin Triglycerides Lipase Arterial Blood Glucose 209 H Arterial Blood Ionized Calcium Urine WBC (Auto) Coronavirus (PCR) SARS-CoV-2 IgG Ab Crossmatch 06/12/20 06/12/20 06/12/20 05:13 11:47 18:33 WBC RBC Hgb Hct MCV MCH MCHC RDW Lymph % (Auto) [place] % (Auto) Lymph # (Auto) [place] # (Auto) Baso # (Auto) Seg Neutrophils % Seg Neuts % (Manual) Lymphocytes % (Manual) Nucleated RBC % Seg Neutrophils # Seg Neutrophils # Man Lymphocytes # (Manual) Monocytes # (Manual) Eosinophils # (Manual) PT INR APTT D-Dimer Heparin Anti-Xa Level ABG pH POC ABG pCO2 POC ABG pO2 ABG pO2 ABG HCO3 ABG O2 Saturation ABG Base Excess ABG Hemoglobin ABG Oxyhemoglobin ABG Sodium ABG Potassium ABG Chloride ABG Glucose Oxyhemoglobin Carboxyhemoglobin Sodium Potassium Chloride Carbon Dioxide BUN Creatinine Glucose POC Glucose 174 H 214 H 194 H Lactic Acid Calcium Magnesium Ferritin Total Bilirubin Direct Bilirubin AST ALT Alkaline Phosphatase Lactate Dehydrogenase C-Reactive Protein Total Protein Albumin Triglycerides Lipase Arterial Blood Glucose Arterial Blood Ionized Calcium Urine WBC (Auto) Coronavirus (PCR) SARS-CoV-2 IgG Ab Crossmatch 06/12/20 06/13/20 06/13/20 23:49 05:41 12:30 WBC RBC Hgb Hct MCV MCH MCHC RDW Lymph % (Auto) [place] % (Auto) Lymph # (Auto) [place] # (Auto) Baso # (Auto) Seg Neutrophils % Seg Neuts % (Manual) Lymphocytes % (Manual) Nucleated RBC % Seg Neutrophils # Seg Neutrophils # Man Lymphocytes # (Manual) Monocytes # (Manual) Eosinophils # (Manual) PT INR APTT D-Dimer Heparin Anti-Xa Level ABG pH POC ABG pCO2 POC ABG pO2 ABG pO2 ABG HCO3 ABG O2 Saturation ABG Base Excess ABG Hemoglobin ABG Oxyhemoglobin ABG Sodium ABG Potassium ABG Chloride ABG Glucose Oxyhemoglobin Carboxyhemoglobin Sodium Potassium Chloride Carbon Dioxide BUN Creatinine Glucose POC Glucose 160 H 150 H 181 H Lactic Acid Calcium Magnesium Ferritin Total Bilirubin Direct Bilirubin AST ALT Alkaline Phosphatase Lactate Dehydrogenase C-Reactive Protein Total Protein Albumin Triglycerides Lipase Arterial Blood Glucose Arterial Blood Ionized Calcium Urine WBC (Auto) Coronavirus (PCR) SARS-CoV-2 IgG Ab Crossmatch 06/13/20 06/13/20 06/13/20 14:14 17:48 23:27 WBC 12.8 H RBC 2.33 L Hgb 8.0 L Hct 23.3 L MCV 100 H MCH 34 H MCHC RDW 15.7 H Lymph % (Auto) [place] % (Auto) Lymph # (Auto) [place] # (Auto) Baso # (Auto) Seg Neutrophils % Seg Neuts % (Manual) 85.0 H Lymphocytes % (Manual) 10.0 L Nucleated RBC % Seg Neutrophils # Seg Neutrophils # Man 10.9 H Lymphocytes # (Manual) Monocytes # (Manual) Eosinophils # (Manual) PT INR APTT D-Dimer Heparin Anti-Xa Level ABG pH POC ABG pCO2 POC ABG pO2 ABG pO2 ABG HCO3 ABG O2 Saturation ABG Base Excess ABG Hemoglobin ABG Oxyhemoglobin ABG Sodium ABG Potassium ABG Chloride ABG Glucose Oxyhemoglobin Carboxyhemoglobin Sodium Potassium Chloride Carbon Dioxide BUN Creatinine Glucose POC Glucose 173 H 154 H Lactic Acid Calcium Magnesium Ferritin Total Bilirubin Direct Bilirubin AST ALT Alkaline Phosphatase Lactate Dehydrogenase C-Reactive Protein Total Protein Albumin Triglycerides Lipase Arterial Blood Glucose Arterial Blood Ionized Calcium Urine WBC (Auto) Coronavirus (PCR) SARS-CoV-2 IgG Ab Crossmatch 06/14/20 06/14/20 06/14/20 03:58 05:21 07:15 WBC 26.2 H RBC 2.97 L Hgb 9.7 L Hct 29.9 L D MCV 101 H MCH 33 H MCHC RDW 15.3 H Lymph % (Auto) [place] % (Auto) Lymph # (Auto) [place] # (Auto) Baso # (Auto) Seg Neutrophils % Seg Neuts % (Manual) 79.0 H Lymphocytes % (Manual) 5.0 L Nucleated RBC % 3.0 H Seg Neutrophils # Seg Neutrophils # Man 20.7 H Lymphocytes # (Manual) Monocytes # (Manual) 1.3 H Eosinophils # (Manual) PT INR APTT D-Dimer Heparin Anti-Xa Level ABG pH POC ABG pCO2 51.5 H POC ABG pO2 70.0 L ABG pO2 ABG HCO3 ABG O2 Saturation ABG Base Excess ABG Hemoglobin 10.1 L ABG Oxyhemoglobin ABG Sodium 131.5 L ABG Potassium 3.1 L ABG Chloride 93.0 L ABG Glucose 188 H Oxyhemoglobin Carboxyhemoglobin Sodium Potassium Chloride Carbon Dioxide BUN Creatinine Glucose POC Glucose 147 H Lactic Acid Calcium Magnesium Ferritin Total Bilirubin Direct Bilirubin AST ALT Alkaline Phosphatase Lactate Dehydrogenase C-Reactive Protein Total Protein Albumin Triglycerides Lipase Arterial Blood Glucose 188 H Arterial Blood Ionized Calcium Urine WBC (Auto) Coronavirus (PCR) SARS-CoV-2 IgG Ab Crossmatch 06/14/20 06/14/20 06/14/20 07:15 11:30 11:50 WBC RBC Hgb Hct MCV MCH MCHC RDW Lymph % (Auto) [place] % (Auto) Lymph # (Auto) [place] # (Auto) Baso # (Auto) Seg Neutrophils % Seg Neuts % (Manual) Lymphocytes % (Manual) Nucleated RBC % Seg Neutrophils # Seg Neutrophils # Man Lymphocytes # (Manual) Monocytes # (Manual) Eosinophils # (Manual) PT INR APTT D-Dimer Heparin Anti-Xa Level ABG pH POC ABG pCO2 POC ABG pO2 ABG pO2 ABG HCO3 ABG O2 Saturation ABG Base Excess ABG Hemoglobin ABG Oxyhemoglobin ABG Sodium ABG Potassium ABG Chloride ABG Glucose Oxyhemoglobin Carboxyhemoglobin Sodium 135 L Potassium 3.5 L Chloride 90.4 L Carbon Dioxide 38 H BUN Creatinine 0.5 L Glucose 190 H POC Glucose 176 H Lactic Acid Calcium Magnesium Ferritin 1496.0 H Total Bilirubin Direct Bilirubin AST ALT 81 H Alkaline Phosphatase Lactate Dehydrogenase C-Reactive Protein Total Protein Albumin 2.9 L Triglycerides Lipase Arterial Blood Glucose Arterial Blood Ionized Calcium Urine WBC (Auto) Coronavirus (PCR) SARS-CoV-2 IgG Ab Crossmatch 06/14/20 06/15/20 06/15/20 23:31 04:00 05:00 WBC RBC Hgb Hct MCV MCH MCHC RDW Lymph % (Auto) [place] % (Auto) Lymph # (Auto) [place] # (Auto) Baso # (Auto) Seg Neutrophils % Seg Neuts % (Manual) Lymphocytes % (Manual) Nucleated RBC % Seg Neutrophils # Seg Neutrophils # Man Lymphocytes # (Manual) Monocytes # (Manual) Eosinophils # (Manual) PT INR APTT D-Dimer Heparin Anti-Xa Level ABG pH POC ABG pCO2 POC ABG pO2 ABG pO2 ABG HCO3 ABG O2 Saturation ABG Base Excess ABG Hemoglobin ABG Oxyhemoglobin ABG Sodium ABG Potassium ABG Chloride ABG Glucose Oxyhemoglobin Carboxyhemoglobin Sodium 133 L Potassium Chloride 91.1 L Carbon Dioxide 34 H BUN Creatinine 0.4 L Glucose 159 H POC Glucose 200 H Lactic Acid Calcium Magnesium Ferritin Total Bilirubin 2.00 H Direct Bilirubin AST 47 H ALT 77 H Alkaline Phosphatase Lactate Dehydrogenase C-Reactive Protein Total Protein Albumin 2.6 L Triglycerides 152 H Lipase Arterial Blood Glucose Arterial Blood Ionized Calcium Urine WBC (Auto) Coronavirus (PCR) SARS-CoV-2 IgG Ab Crossmatch 06/15/20 06/15/20 06/15/20 05:35 06:27 11:38 WBC RBC Hgb Hct MCV MCH MCHC RDW Lymph % (Auto) [place] % (Auto) Lymph # (Auto) [place] # (Auto) Baso # (Auto) Seg Neutrophils % Seg Neuts % (Manual) Lymphocytes % (Manual) Nucleated RBC % Seg Neutrophils # Seg Neutrophils # Man Lymphocytes # (Manual) Monocytes # (Manual) Eosinophils # (Manual) PT INR APTT D-Dimer Heparin Anti-Xa Level ABG pH POC ABG pCO2 61.0 H POC ABG pO2 67.9 L ABG pO2 ABG HCO3 ABG O2 Saturation ABG Base Excess ABG Hemoglobin 10.4 L ABG Oxyhemoglobin ABG Sodium 132.7 L ABG Potassium 3.3 L ABG Chloride 92.0 L ABG Glucose 158 H Oxyhemoglobin Carboxyhemoglobin Sodium Potassium Chloride Carbon Dioxide BUN Creatinine Glucose POC Glucose 148 H 197 H Lactic Acid Calcium Magnesium Ferritin Total Bilirubin Direct Bilirubin AST ALT Alkaline Phosphatase Lactate Dehydrogenase C-Reactive Protein Total Protein Albumin Triglycerides Lipase Arterial Blood Glucose 158 H Arterial Blood Ionized Calcium Urine WBC (Auto) Coronavirus (PCR) SARS-CoV-2 IgG Ab Crossmatch 06/15/20 06/15/20 06/16/20 17:29 Unknown 00:01 WBC 20.7 H RBC 2.57 L Hgb 8.9 L Hct 25.8 L MCV 101 H MCH 35 H MCHC 35 H RDW 16.0 H Lymph % (Auto) [place] % (Auto) Lymph # (Auto) [place] # (Auto) Baso # (Auto) Seg Neutrophils % Seg Neuts % (Manual) 83.0 H Lymphocytes % (Manual) 8.0 L Nucleated RBC % Seg Neutrophils # Seg Neutrophils # Man 17.2 H Lymphocytes # (Manual) Monocytes # (Manual) 1.2 H Eosinophils # (Manual) PT INR APTT D-Dimer Heparin Anti-Xa Level ABG pH POC ABG pCO2 POC ABG pO2 ABG pO2 ABG HCO3 ABG O2 Saturation ABG Base Excess ABG Hemoglobin ABG Oxyhemoglobin ABG Sodium ABG Potassium ABG Chloride ABG Glucose Oxyhemoglobin Carboxyhemoglobin Sodium Potassium Chloride Carbon Dioxide BUN Creatinine Glucose POC Glucose 231 H 257 H Lactic Acid Calcium Magnesium Ferritin Total Bilirubin Direct Bilirubin AST ALT Alkaline Phosphatase Lactate Dehydrogenase C-Reactive Protein Total Protein Albumin Triglycerides Lipase Arterial Blood Glucose Arterial Blood Ionized Calcium Urine WBC (Auto) Coronavirus (PCR) SARS-CoV-2 IgG Ab Crossmatch 06/16/20 06/16/20 06/16/20 04:00 04:00 05:22 WBC 13.8 H RBC 2.03 L Hgb 7.6 L Hct 20.7 L MCV 102 H MCH 37 H MCHC 37 H RDW 16.2 H Lymph % (Auto) 4.4 L [place] % (Auto) Lymph # (Auto) 0.6 L [place] # (Auto) Baso # (Auto) Seg Neutrophils % Seg Neuts % (Manual) Lymphocytes % (Manual) Nucleated RBC % Seg Neutrophils # 12.7 H Seg Neutrophils # Man Lymphocytes # (Manual) Monocytes # (Manual) Eosinophils # (Manual) PT INR APTT D-Dimer Heparin Anti-Xa Level ABG pH POC ABG pCO2 POC ABG pO2 ABG pO2 ABG HCO3 ABG O2 Saturation ABG Base Excess ABG Hemoglobin ABG Oxyhemoglobin ABG Sodium ABG Potassium ABG Chloride ABG Glucose Oxyhemoglobin Carboxyhemoglobin Sodium 130 L Potassium Chloride 88.9 L Carbon Dioxide 36 H BUN Creatinine 0.3 L Glucose 276 H POC Glucose 250 H Lactic Acid Calcium Magnesium Ferritin Total Bilirubin Direct Bilirubin AST ALT Alkaline Phosphatase Lactate Dehydrogenase C-Reactive Protein Total Protein Albumin Triglycerides Lipase Arterial Blood Glucose Arterial Blood Ionized Calcium Urine WBC (Auto) Coronavirus (PCR) SARS-CoV-2 IgG Ab Crossmatch 06/16/20 06/16/20 06/17/20 12:44 18:18 00:39 WBC RBC Hgb Hct MCV MCH MCHC RDW Lymph % (Auto) [place] % (Auto) Lymph # (Auto) [place] # (Auto) Baso # (Auto) Seg Neutrophils % Seg Neuts % (Manual) Lymphocytes % (Manual) Nucleated RBC % Seg Neutrophils # Seg Neutrophils # Man Lymphocytes # (Manual) Monocytes # (Manual) Eosinophils # (Manual) PT INR APTT D-Dimer Heparin Anti-Xa Level ABG pH POC ABG pCO2 POC ABG pO2 ABG pO2 ABG HCO3 ABG O2 Saturation ABG Base Excess ABG Hemoglobin ABG Oxyhemoglobin ABG Sodium ABG Potassium ABG Chloride ABG Glucose Oxyhemoglobin Carboxyhemoglobin Sodium Potassium Chloride Carbon Dioxide BUN Creatinine Glucose POC Glucose 279 H 239 H 247 H Lactic Acid Calcium Magnesium Ferritin Total Bilirubin Direct Bilirubin AST ALT Alkaline Phosphatase Lactate Dehydrogenase C-Reactive Protein Total Protein Albumin Triglycerides Lipase Arterial Blood Glucose Arterial Blood Ionized Calcium Urine WBC (Auto) Coronavirus (PCR) SARS-CoV-2 IgG Ab Crossmatch 06/17/20 06/17/20 06/17/20 03:40 04:08 10:54 WBC RBC Hgb Hct MCV MCH MCHC RDW Lymph % (Auto) [place] % (Auto) Lymph # (Auto) [place] # (Auto) Baso # (Auto) Seg Neutrophils % Seg Neuts % (Manual) Lymphocytes % (Manual) Nucleated RBC % Seg Neutrophils # Seg Neutrophils # Man Lymphocytes # (Manual) Monocytes # (Manual) Eosinophils # (Manual) PT INR APTT D-Dimer Heparin Anti-Xa Level ABG pH POC ABG pCO2 65.7 H POC ABG pO2 ABG pO2 ABG HCO3 ABG O2 Saturation ABG Base Excess ABG Hemoglobin 11.9 L ABG Oxyhemoglobin ABG Sodium ABG Potassium ABG Chloride 93.0 L ABG Glucose 244 H Oxyhemoglobin Carboxyhemoglobin Sodium Potassium Chloride Carbon Dioxide BUN Creatinine Glucose POC Glucose 221 H 248 H Lactic Acid Calcium Magnesium Ferritin Total Bilirubin Direct Bilirubin AST ALT Alkaline Phosphatase Lactate Dehydrogenase C-Reactive Protein Total Protein Albumin Triglycerides Lipase Arterial Blood Glucose 244 H Arterial Blood Ionized Calcium Urine WBC (Auto) Coronavirus (PCR) SARS-CoV-2 IgG Ab Crossmatch 06/17/20 06/17/20 06/17/20 17:47 23:11 23:29 WBC RBC Hgb Hct MCV MCH MCHC RDW Lymph % (Auto) [place] % (Auto) Lymph # (Auto) [place] # (Auto) Baso # (Auto) Seg Neutrophils % Seg Neuts % (Manual) Lymphocytes % (Manual) Nucleated RBC % Seg Neutrophils # Seg Neutrophils # Man Lymphocytes # (Manual) Monocytes # (Manual) Eosinophils # (Manual) PT INR APTT D-Dimer Heparin Anti-Xa Level ABG pH POC ABG pCO2 85.2 H POC ABG pO2 48.4 L ABG pO2 ABG HCO3 ABG O2 Saturation ABG Base Excess ABG Hemoglobin 8.0 L ABG Oxyhemoglobin ABG Sodium ABG Potassium ABG Chloride 95.0 L ABG Glucose 292 H Oxyhemoglobin Carboxyhemoglobin Sodium Potassium Chloride Carbon Dioxide BUN Creatinine Glucose POC Glucose 245 H 252 H Lactic Acid Calcium Magnesium Ferritin Total Bilirubin Direct Bilirubin AST ALT Alkaline Phosphatase Lactate Dehydrogenase C-Reactive Protein Total Protein Albumin Triglycerides Lipase Arterial Blood Glucose 292 H Arterial Blood Ionized Calcium Urine WBC (Auto) Coronavirus (PCR) SARS-CoV-2 IgG Ab Crossmatch 06/18/20 06/18/20 06/18/20 03:14 05:34 11:47 WBC RBC Hgb Hct MCV MCH MCHC RDW Lymph % (Auto) [place] % (Auto) Lymph # (Auto) [place] # (Auto) Baso # (Auto) Seg Neutrophils % Seg Neuts % (Manual) Lymphocytes % (Manual) Nucleated RBC % Seg Neutrophils # Seg Neutrophils # Man Lymphocytes # (Manual) Monocytes # (Manual) Eosinophils # (Manual) PT INR APTT D-Dimer Heparin Anti-Xa Level ABG pH POC ABG pCO2 65.4 H POC ABG pO2 160.7 H ABG pO2 ABG HCO3 ABG O2 Saturation ABG Base Excess ABG Hemoglobin 7.8 L ABG Oxyhemoglobin ABG Sodium ABG Potassium ABG Chloride 95.0 L ABG Glucose 251 H Oxyhemoglobin Carboxyhemoglobin Sodium Potassium Chloride Carbon Dioxide BUN Creatinine Glucose POC Glucose 243 H 263 H Lactic Acid Calcium Magnesium Ferritin Total Bilirubin Direct Bilirubin AST ALT Alkaline Phosphatase Lactate Dehydrogenase C-Reactive Protein Total Protein Albumin Triglycerides Lipase Arterial Blood Glucose 251 H Arterial Blood Ionized Calcium Urine WBC (Auto) Coronavirus (PCR) SARS-CoV-2 IgG Ab Crossmatch 06/18/20 06/18/20 06/19/20 17:31 23:33 04:32 WBC RBC Hgb Hct MCV MCH MCHC RDW Lymph % (Auto) [place] % (Auto) Lymph # (Auto) [place] # (Auto) Baso # (Auto) Seg Neutrophils % Seg Neuts % (Manual) Lymphocytes % (Manual) Nucleated RBC % Seg Neutrophils # Seg Neutrophils # Man Lymphocytes # (Manual) Monocytes # (Manual) Eosinophils # (Manual) PT INR APTT D-Dimer Heparin Anti-Xa Level ABG pH POC ABG pCO2 83.1 H POC ABG pO2 65.8 L ABG pO2 ABG HCO3 ABG O2 Saturation ABG Base Excess ABG Hemoglobin 8.9 L ABG Oxyhemoglobin ABG Sodium ABG Potassium ABG Chloride 96.0 L ABG Glucose 297 H Oxyhemoglobin Carboxyhemoglobin Sodium Potassium Chloride Carbon Dioxide BUN Creatinine Glucose POC Glucose 286 H 238 H Lactic Acid Calcium Magnesium Ferritin Total Bilirubin Direct Bilirubin AST ALT Alkaline Phosphatase Lactate Dehydrogenase C-Reactive Protein Total Protein Albumin Triglycerides Lipase Arterial Blood Glucose 297 H Arterial Blood Ionized Calcium Urine WBC (Auto) Coronavirus (PCR) SARS-CoV-2 IgG Ab Crossmatch 06/19/20 06/19/20 06/19/20 05:55 11:20 17:12 WBC RBC Hgb Hct MCV MCH MCHC RDW Lymph % (Auto) [place] % (Auto) Lymph # (Auto) [place] # (Auto) Baso # (Auto) Seg Neutrophils % Seg Neuts % (Manual) Lymphocytes % (Manual) Nucleated RBC % Seg Neutrophils # Seg Neutrophils # Man Lymphocytes # (Manual) Monocytes # (Manual) Eosinophils # (Manual) PT INR APTT D-Dimer Heparin Anti-Xa Level ABG pH POC ABG pCO2 POC ABG pO2 ABG pO2 ABG HCO3 ABG O2 Saturation ABG Base Excess ABG Hemoglobin ABG Oxyhemoglobin ABG Sodium ABG Potassium ABG Chloride ABG Glucose Oxyhemoglobin Carboxyhemoglobin Sodium Potassium Chloride Carbon Dioxide BUN Creatinine Glucose POC Glucose 274 H 282 H 298 H Lactic Acid Calcium Magnesium Ferritin Total Bilirubin Direct Bilirubin AST ALT Alkaline Phosphatase Lactate Dehydrogenase C-Reactive Protein Total Protein Albumin Triglycerides Lipase Arterial Blood Glucose Arterial Blood Ionized Calcium Urine WBC (Auto) Coronavirus (PCR) SARS-CoV-2 IgG Ab Crossmatch 06/19/20 06/20/20 06/20/20 23:08 03:33 06:01 WBC RBC Hgb Hct MCV MCH MCHC RDW Lymph % (Auto) [place] % (Auto) Lymph # (Auto) [place] # (Auto) Baso # (Auto) Seg Neutrophils % Seg Neuts % (Manual) Lymphocytes % (Manual) Nucleated RBC % Seg Neutrophils # Seg Neutrophils # Man Lymphocytes # (Manual) Monocytes # (Manual) Eosinophils # (Manual) PT INR APTT D-Dimer Heparin Anti-Xa Level ABG pH POC ABG pCO2 POC ABG pO2 ABG pO2 69.9 L ABG HCO3 50.8 H ABG O2 Saturation ABG Base Excess 24.2 H ABG Hemoglobin 5.8 L ABG Oxyhemoglobin ABG Sodium ABG Potassium ABG Chloride ABG Glucose Oxyhemoglobin Carboxyhemoglobin Sodium Potassium Chloride Carbon Dioxide BUN Creatinine Glucose POC Glucose 293 H 182 H Lactic Acid Calcium Magnesium Ferritin Total Bilirubin Direct Bilirubin AST ALT Alkaline Phosphatase Lactate Dehydrogenase C-Reactive Protein Total Protein Albumin Triglycerides Lipase Arterial Blood Glucose Arterial Blood Ionized Calcium Urine WBC (Auto) Coronavirus (PCR) SARS-CoV-2 IgG Ab Crossmatch 06/20/20 06/20/20 06/20/20 11:47 17:46 23:37 WBC RBC Hgb Hct MCV MCH MCHC RDW Lymph % (Auto) [place] % (Auto) Lymph # (Auto) [place] # (Auto) Baso # (Auto) Seg Neutrophils % Seg Neuts % (Manual) Lymphocytes % (Manual) Nucleated RBC % Seg Neutrophils # Seg Neutrophils # Man Lymphocytes # (Manual) Monocytes # (Manual) Eosinophils # (Manual) PT INR APTT D-Dimer Heparin Anti-Xa Level ABG pH POC ABG pCO2 POC ABG pO2 ABG pO2 ABG HCO3 ABG O2 Saturation ABG Base Excess ABG Hemoglobin ABG Oxyhemoglobin ABG Sodium ABG Potassium ABG Chloride ABG Glucose Oxyhemoglobin Carboxyhemoglobin Sodium Potassium Chloride Carbon Dioxide BUN Creatinine Glucose POC Glucose 170 H 215 H 256 H Lactic Acid Calcium Magnesium Ferritin Total Bilirubin Direct Bilirubin AST ALT Alkaline Phosphatase Lactate Dehydrogenase C-Reactive Protein Total Protein Albumin Triglycerides Lipase Arterial Blood Glucose Arterial Blood Ionized Calcium Urine WBC (Auto) Coronavirus (PCR) SARS-CoV-2 IgG Ab Crossmatch 06/21/20 06/21/20 06/21/20 04:00 05:14 05:51 WBC RBC Hgb Hct MCV MCH MCHC RDW Lymph % (Auto) [place] % (Auto) Lymph # (Auto) [place] # (Auto) Baso # (Auto) Seg Neutrophils % Seg Neuts % (Manual) Lymphocytes % (Manual) Nucleated RBC % Seg Neutrophils # Seg Neutrophils # Man Lymphocytes # (Manual) Monocytes # (Manual) Eosinophils # (Manual) PT INR APTT D-Dimer Heparin Anti-Xa Level ABG pH 7.474 H POC ABG pCO2 POC ABG pO2 ABG pO2 ABG HCO3 52.1 H ABG O2 Saturation ABG Base Excess 23.3 H ABG Hemoglobin 5.3 L ABG Oxyhemoglobin ABG Sodium ABG Potassium ABG Chloride ABG Glucose Oxyhemoglobin 93.8 L Carboxyhemoglobin Sodium Potassium Chloride Carbon Dioxide BUN Creatinine Glucose POC Glucose 122 H 129 H Lactic Acid Calcium Magnesium Ferritin Total Bilirubin Direct Bilirubin AST ALT Alkaline Phosphatase Lactate Dehydrogenase C-Reactive Protein Total Protein Albumin Triglycerides Lipase Arterial Blood Glucose Arterial Blood Ionized Calcium Urine WBC (Auto) Coronavirus (PCR) SARS-CoV-2 IgG Ab Crossmatch 06/21/20 06/21/20 06/21/20 11:00 11:00 11:42 WBC 14.2 H RBC 1.85 L Hgb 6.2 L Hct 19.5 L* MCV 105 H MCH 34 H MCHC RDW 18.0 H Lymph % (Auto) [place] % (Auto) Lymph # (Auto) [place] # (Auto) Baso # (Auto) Seg Neutrophils % Seg Neuts % (Manual) Lymphocytes % (Manual) Nucleated RBC % Seg Neutrophils # Seg Neutrophils # Man Lymphocytes # (Manual) Monocytes # (Manual) Eosinophils # (Manual) PT INR APTT D-Dimer Heparin Anti-Xa Level ABG pH POC ABG pCO2 POC ABG pO2 ABG pO2 ABG HCO3 ABG O2 Saturation ABG Base Excess ABG Hemoglobin ABG Oxyhemoglobin ABG Sodium ABG Potassium ABG Chloride ABG Glucose Oxyhemoglobin Carboxyhemoglobin Sodium 147 H Potassium Chloride Carbon Dioxide 51 H* BUN 31 H Creatinine 0.5 L Glucose 224 H POC Glucose 217 H Lactic Acid Calcium Magnesium Ferritin Total Bilirubin Direct Bilirubin AST ALT Alkaline Phosphatase Lactate Dehydrogenase C-Reactive Protein Total Protein Albumin Triglycerides Lipase Arterial Blood Glucose Arterial Blood Ionized Calcium Urine WBC (Auto) Coronavirus (PCR) SARS-CoV-2 IgG Ab Crossmatch 06/21/20 06/21/20 06/21/20 14:18 14:30 18:36 WBC RBC Hgb Hct MCV MCH MCHC RDW Lymph % (Auto) [place] % (Auto) Lymph # (Auto) [place] # (Auto) Baso # (Auto) Seg Neutrophils % Seg Neuts % (Manual) Lymphocytes % (Manual) Nucleated RBC % Seg Neutrophils # Seg Neutrophils # Man Lymphocytes # (Manual) Monocytes # (Manual) Eosinophils # (Manual) PT 15.1 H INR 1.19 H APTT D-Dimer Heparin Anti-Xa Level ABG pH POC ABG pCO2 POC ABG pO2 ABG pO2 ABG HCO3 ABG O2 Saturation ABG Base Excess ABG Hemoglobin ABG Oxyhemoglobin ABG Sodium ABG Potassium ABG Chloride ABG Glucose Oxyhemoglobin Carboxyhemoglobin Sodium Potassium Chloride Carbon Dioxide BUN Creatinine Glucose POC Glucose 185 H Lactic Acid Calcium Magnesium Ferritin Total Bilirubin Direct Bilirubin AST ALT Alkaline Phosphatase Lactate Dehydrogenase C-Reactive Protein Total Protein Albumin Triglycerides Lipase Arterial Blood Glucose Arterial Blood Ionized Calcium Urine WBC (Auto) Coronavirus (PCR) SARS-CoV-2 IgG Ab Crossmatch See Detail 06/21/20 06/22/20 06/22/20 21:14 03:50 04:00 WBC RBC Hgb Hct MCV MCH MCHC RDW Lymph % (Auto) [place] % (Auto) Lymph # (Auto) [place] # (Auto) Baso # (Auto) Seg Neutrophils % Seg Neuts % (Manual) Lymphocytes % (Manual) Nucleated RBC % Seg Neutrophils # Seg Neutrophils # Man Lymphocytes # (Manual) Monocytes # (Manual) Eosinophils # (Manual) PT INR APTT D-Dimer Heparin Anti-Xa Level ABG pH 7.451 H POC ABG pCO2 POC ABG pO2 ABG pO2 ABG HCO3 47.5 H ABG O2 Saturation ABG Base Excess 22.0 H ABG Hemoglobin < 5.1 L ABG Oxyhemoglobin ABG Sodium ABG Potassium ABG Chloride ABG Glucose Oxyhemoglobin 94.1 L Carboxyhemoglobin Sodium 149 H Potassium 3.5 L Chloride Carbon Dioxide 42 H* D BUN 34 H Creatinine 0.4 L Glucose 219 H POC Glucose 250 H Lactic Acid Calcium Magnesium Ferritin Total Bilirubin Direct Bilirubin AST ALT Alkaline Phosphatase Lactate Dehydrogenase C-Reactive Protein Total Protein Albumin Triglycerides Lipase Arterial Blood Glucose Arterial Blood Ionized Calcium Urine WBC (Auto) Coronavirus (PCR) SARS-CoV-2 IgG Ab Crossmatch 06/22/20 06/22/20 06/22/20 12:16 14:29 17:56 WBC RBC Hgb Hct MCV MCH MCHC RDW Lymph % (Auto) [place] % (Auto) Lymph # (Auto) [place] # (Auto) Baso # (Auto) Seg Neutrophils % Seg Neuts % (Manual) Lymphocytes % (Manual) Nucleated RBC % Seg Neutrophils # Seg Neutrophils # Man Lymphocytes # (Manual) Monocytes # (Manual) Eosinophils # (Manual) PT 11.8 L INR APTT 23.5 L D-Dimer Heparin Anti-Xa Level ABG pH POC ABG pCO2 POC ABG pO2 ABG pO2 ABG HCO3 ABG O2 Saturation ABG Base Excess ABG Hemoglobin ABG Oxyhemoglobin ABG Sodium ABG Potassium ABG Chloride ABG Glucose Oxyhemoglobin Carboxyhemoglobin Sodium Potassium Chloride Carbon Dioxide BUN Creatinine Glucose POC Glucose 215 H 215 H Lactic Acid Calcium Magnesium Ferritin Total Bilirubin Direct Bilirubin AST ALT Alkaline Phosphatase Lactate Dehydrogenase C-Reactive Protein Total Protein Albumin Triglycerides Lipase Arterial Blood Glucose Arterial Blood Ionized Calcium Urine WBC (Auto) Coronavirus (PCR) SARS-CoV-2 IgG Ab Crossmatch 06/22/20 06/22/20 06/22/20 23:36 23:45 Unknown WBC 14.1 H RBC 2.70 L Hgb 8.9 L 8.9 L Hct 26.9 L 27.2 L D MCV 101 H MCH 33 H MCHC RDW 17.7 H Lymph % (Auto) [place] % (Auto) Lymph # (Auto) [place] # (Auto) Baso # (Auto) Seg Neutrophils % Seg Neuts % (Manual) 92.0 H Lymphocytes % (Manual) 5.0 L Nucleated RBC % Seg Neutrophils # Seg Neutrophils # Man 13.0 H Lymphocytes # (Manual) 0.7 L Monocytes # (Manual) Eosinophils # (Manual) PT INR APTT D-Dimer Heparin Anti-Xa Level ABG pH POC ABG pCO2 POC ABG pO2 ABG pO2 ABG HCO3 ABG O2 Saturation ABG Base Excess ABG Hemoglobin ABG Oxyhemoglobin ABG Sodium ABG Potassium ABG Chloride ABG Glucose Oxyhemoglobin Carboxyhemoglobin Sodium Potassium Chloride Carbon Dioxide BUN Creatinine Glucose POC Glucose 208 H Lactic Acid Calcium Magnesium Ferritin Total Bilirubin Direct Bilirubin AST ALT Alkaline Phosphatase Lactate Dehydrogenase C-Reactive Protein Total Protein Albumin Triglycerides Lipase Arterial Blood Glucose Arterial Blood Ionized Calcium Urine WBC (Auto) Coronavirus (PCR) SARS-CoV-2 IgG Ab Crossmatch 06/23/20 06/23/20 06/23/20 05:17 05:19 06:50 WBC RBC Hgb Hct MCV MCH MCHC RDW Lymph % (Auto) [place] % (Auto) Lymph # (Auto) [place] # (Auto) Baso # (Auto) Seg Neutrophils % Seg Neuts % (Manual) Lymphocytes % (Manual) Nucleated RBC % Seg Neutrophils # Seg Neutrophils # Man Lymphocytes # (Manual) Monocytes # (Manual) Eosinophils # (Manual) PT INR APTT D-Dimer Heparin Anti-Xa Level ABG pH POC ABG pCO2 69.7 H POC ABG pO2 63.3 L ABG pO2 ABG HCO3 ABG O2 Saturation ABG Base Excess ABG Hemoglobin 10.1 L ABG Oxyhemoglobin ABG Sodium ABG Potassium 3.3 L ABG Chloride ABG Glucose 226 H Oxyhemoglobin Carboxyhemoglobin Sodium Potassium 3.0 L Chloride Carbon Dioxide 41 H* BUN 26 H Creatinine 0.4 L Glucose 209 H POC Glucose 200 H Lactic Acid Calcium Magnesium Ferritin Total Bilirubin Direct Bilirubin AST ALT Alkaline Phosphatase Lactate Dehydrogenase C-Reactive Protein Total Protein Albumin 2.9 L Triglycerides Lipase Arterial Blood Glucose 226 H Arterial Blood Ionized Calcium Urine WBC (Auto) Coronavirus (PCR) SARS-CoV-2 IgG Ab Crossmatch 06/23/20 06/23/20 06/23/20 09:41 12:04 18:16 WBC RBC Hgb 9.1 L Hct 28.0 L MCV MCH MCHC RDW Lymph % (Auto) [place] % (Auto) Lymph # (Auto) [place] # (Auto) Baso # (Auto) Seg Neutrophils % Seg Neuts % (Manual) Lymphocytes % (Manual) Nucleated RBC % Seg Neutrophils # Seg Neutrophils # Man Lymphocytes # (Manual) Monocytes # (Manual) Eosinophils # (Manual) PT INR APTT D-Dimer Heparin Anti-Xa Level ABG pH POC ABG pCO2 POC ABG pO2 ABG pO2 ABG HCO3 ABG O2 Saturation ABG Base Excess ABG Hemoglobin ABG Oxyhemoglobin ABG Sodium ABG Potassium ABG Chloride ABG Glucose Oxyhemoglobin Carboxyhemoglobin Sodium Potassium Chloride Carbon Dioxide BUN Creatinine Glucose POC Glucose 146 H 162 H Lactic Acid Calcium Magnesium Ferritin Total Bilirubin Direct Bilirubin AST ALT Alkaline Phosphatase Lactate Dehydrogenase C-Reactive Protein Total Protein Albumin Triglycerides Lipase Arterial Blood Glucose Arterial Blood Ionized Calcium Urine WBC (Auto) Coronavirus (PCR) SARS-CoV-2 IgG Ab Crossmatch 06/23/20 06/23/20 06/24/20 23:24 23:41 02:39 WBC RBC Hgb 8.2 L 8.8 L Hct 24.9 L 26.8 L MCV MCH MCHC RDW Lymph % (Auto) [place] % (Auto) Lymph # (Auto) [place] # (Auto) Baso # (Auto) Seg Neutrophils % Seg Neuts % (Manual) Lymphocytes % (Manual) Nucleated RBC % Seg Neutrophils # Seg Neutrophils # Man Lymphocytes # (Manual) Monocytes # (Manual) Eosinophils # (Manual) PT INR APTT D-Dimer Heparin Anti-Xa Level ABG pH POC ABG pCO2 POC ABG pO2 ABG pO2 ABG HCO3 ABG O2 Saturation ABG Base Excess ABG Hemoglobin ABG Oxyhemoglobin ABG Sodium ABG Potassium ABG Chloride ABG Glucose Oxyhemoglobin Carboxyhemoglobin Sodium Potassium Chloride Carbon Dioxide BUN Creatinine Glucose POC Glucose 248 H Lactic Acid Calcium Magnesium Ferritin Total Bilirubin Direct Bilirubin AST ALT Alkaline Phosphatase Lactate Dehydrogenase C-Reactive Protein Total Protein Albumin Triglycerides Lipase Arterial Blood Glucose Arterial Blood Ionized Calcium Urine WBC (Auto) Coronavirus (PCR) SARS-CoV-2 IgG Ab Crossmatch 06/24/20 06/24/20 06/24/20 02:39 02:45 05:31 WBC RBC Hgb Hct MCV MCH MCHC RDW Lymph % (Auto) [place] % (Auto) Lymph # (Auto) [place] # (Auto) Baso # (Auto) Seg Neutrophils % Seg Neuts % (Manual) Lymphocytes % (Manual) Nucleated RBC % Seg Neutrophils # Seg Neutrophils # Man Lymphocytes # (Manual) Monocytes # (Manual) Eosinophils # (Manual) PT INR APTT D-Dimer Heparin Anti-Xa Level ABG pH POC ABG pCO2 66.9 H POC ABG pO2 109.7 H ABG pO2 ABG HCO3 ABG O2 Saturation ABG Base Excess ABG Hemoglobin 9.7 L ABG Oxyhemoglobin ABG Sodium 135.0 L ABG Potassium ABG Chloride 97.0 L ABG Glucose 277 H Oxyhemoglobin Carboxyhemoglobin Sodium 136 L Potassium Chloride 95.0 L Carbon Dioxide 34 H D BUN 24 H Creatinine 0.3 L Glucose 260 H POC Glucose 164 H Lactic Acid Calcium Magnesium Ferritin Total Bilirubin Direct Bilirubin AST ALT Alkaline Phosphatase Lactate Dehydrogenase C-Reactive Protein Total Protein 5.2 L Albumin 2.6 L Triglycerides Lipase Arterial Blood Glucose 277 H Arterial Blood Ionized Calcium Urine WBC (Auto) Coronavirus (PCR) SARS-CoV-2 IgG Ab Crossmatch 06/24/20 06/24/20 06/24/20 10:00 11:49 17:39 WBC RBC Hgb 8.9 L Hct 26.5 L MCV MCH MCHC RDW Lymph % (Auto) [place] % (Auto) Lymph # (Auto) [place] # (Auto) Baso # (Auto) Seg Neutrophils % Seg Neuts % (Manual) Lymphocytes % (Manual) Nucleated RBC % Seg Neutrophils # Seg Neutrophils # Man Lymphocytes # (Manual) Monocytes # (Manual) Eosinophils # (Manual) PT INR APTT D-Dimer Heparin Anti-Xa Level ABG pH POC ABG pCO2 POC ABG pO2 ABG pO2 ABG HCO3 ABG O2 Saturation ABG Base Excess ABG Hemoglobin ABG Oxyhemoglobin ABG Sodium ABG Potassium ABG Chloride ABG Glucose Oxyhemoglobin Carboxyhemoglobin Sodium Potassium Chloride Carbon Dioxide BUN Creatinine Glucose POC Glucose 198 H 223 H Lactic Acid Calcium Magnesium Ferritin Total Bilirubin Direct Bilirubin AST ALT Alkaline Phosphatase Lactate Dehydrogenase C-Reactive Protein Total Protein Albumin Triglycerides Lipase Arterial Blood Glucose Arterial Blood Ionized Calcium Urine WBC (Auto) Coronavirus (PCR) SARS-CoV-2 IgG Ab Crossmatch 06/24/20 06/25/20 06/25/20 23:56 02:16 04:08 WBC RBC Hgb Hct MCV MCH MCHC RDW Lymph % (Auto) [place] % (Auto) Lymph # (Auto) [place] # (Auto) Baso # (Auto) Seg Neutrophils % Seg Neuts % (Manual) Lymphocytes % (Manual) Nucleated RBC % Seg Neutrophils # Seg Neutrophils # Man Lymphocytes # (Manual) Monocytes # (Manual) Eosinophils # (Manual) PT INR APTT D-Dimer Heparin Anti-Xa Level ABG pH 7.454 H POC ABG pCO2 56.9 H POC ABG pO2 61.0 L ABG pO2 ABG HCO3 ABG O2 Saturation ABG Base Excess ABG Hemoglobin ABG Oxyhemoglobin ABG Sodium 134.3 L ABG Potassium ABG Chloride 92.0 L ABG Glucose 246 H Oxyhemoglobin Carboxyhemoglobin Sodium 134 L Potassium Chloride 89.7 L Carbon Dioxide 36 H BUN Creatinine 0.3 L Glucose 254 H POC Glucose 225 H Lactic Acid Calcium Magnesium Ferritin Total Bilirubin Direct Bilirubin AST ALT Alkaline Phosphatase Lactate Dehydrogenase C-Reactive Protein Total Protein Albumin 2.9 L Triglycerides Lipase Arterial Blood Glucose 246 H Arterial Blood Ionized Calcium Urine WBC (Auto) Coronavirus (PCR) SARS-CoV-2 IgG Ab Crossmatch 06/25/20 06/25/20 06/25/20 05:44 11:35 17:33 WBC RBC Hgb Hct MCV MCH MCHC RDW Lymph % (Auto) [place] % (Auto) Lymph # (Auto) [place] # (Auto) Baso # (Auto) Seg Neutrophils % Seg Neuts % (Manual) Lymphocytes % (Manual) Nucleated RBC % Seg Neutrophils # Seg Neutrophils # Man Lymphocytes # (Manual) Monocytes # (Manual) Eosinophils # (Manual) PT INR APTT D-Dimer Heparin Anti-Xa Level ABG pH POC ABG pCO2 POC ABG pO2 ABG pO2 ABG HCO3 ABG O2 Saturation ABG Base Excess ABG Hemoglobin ABG Oxyhemoglobin ABG Sodium ABG Potassium ABG Chloride ABG Glucose Oxyhemoglobin Carboxyhemoglobin Sodium Potassium Chloride Carbon Dioxide BUN Creatinine Glucose POC Glucose 170 H 175 H 229 H Lactic Acid Calcium Magnesium Ferritin Total Bilirubin Direct Bilirubin AST ALT Alkaline Phosphatase Lactate Dehydrogenase C-Reactive Protein Total Protein Albumin Triglycerides Lipase Arterial Blood Glucose Arterial Blood Ionized Calcium Urine WBC (Auto) Coronavirus (PCR) SARS-CoV-2 IgG Ab Crossmatch 06/25/20 06/26/20 06/26/20 23:55 02:17 02:17 WBC RBC Hgb 10.0 L Hct 30.4 L MCV MCH MCHC RDW Lymph % (Auto) [place] % (Auto) Lymph # (Auto) [place] # (Auto) Baso # (Auto) Seg Neutrophils % Seg Neuts % (Manual) Lymphocytes % (Manual) Nucleated RBC % Seg Neutrophils # Seg Neutrophils # Man Lymphocytes # (Manual) Monocytes # (Manual) Eosinophils # (Manual) PT INR APTT D-Dimer Heparin Anti-Xa Level ABG pH POC ABG pCO2 POC ABG pO2 ABG pO2 ABG HCO3 ABG O2 Saturation ABG Base Excess ABG Hemoglobin ABG Oxyhemoglobin ABG Sodium ABG Potassium ABG Chloride ABG Glucose Oxyhemoglobin Carboxyhemoglobin Sodium 136 L Potassium Chloride 90.1 L Carbon Dioxide 39 H BUN Creatinine 0.2 L Glucose 232 H POC Glucose 192 H Lactic Acid Calcium Magnesium Ferritin Total Bilirubin Direct Bilirubin AST ALT Alkaline Phosphatase Lactate Dehydrogenase C-Reactive Protein Total Protein 6.1 L Albumin 2.9 L Triglycerides Lipase Arterial Blood Glucose Arterial Blood Ionized Calcium Urine WBC (Auto) Coronavirus (PCR) SARS-CoV-2 IgG Ab Crossmatch 06/26/20 06/26/20 06/26/20 04:15 04:49 05:28 WBC RBC Hgb Hct MCV MCH MCHC RDW Lymph % (Auto) [place] % (Auto) Lymph # (Auto) [place] # (Auto) Baso # (Auto) Seg Neutrophils % Seg Neuts % (Manual) Lymphocytes % (Manual) Nucleated RBC % Seg Neutrophils # Seg Neutrophils # Man Lymphocytes # (Manual) Monocytes # (Manual) Eosinophils # (Manual) PT INR APTT D-Dimer Heparin Anti-Xa Level ABG pH 7.453 H POC ABG pCO2 59.6 H POC ABG pO2 ABG pO2 ABG HCO3 ABG O2 Saturation ABG Base Excess ABG Hemoglobin 10.0 L ABG Oxyhemoglobin ABG Sodium 134.2 L ABG Potassium 3.3 L ABG Chloride 92.0 L ABG Glucose 305 H Oxyhemoglobin Carboxyhemoglobin Sodium Potassium Chloride Carbon Dioxide BUN Creatinine Glucose POC Glucose 234 H Lactic Acid Calcium Magnesium Ferritin Total Bilirubin Direct Bilirubin AST ALT Alkaline Phosphatase Lactate Dehydrogenase C-Reactive Protein Total Protein Albumin Triglycerides 203 H Lipase Arterial Blood Glucose 305 H Arterial Blood Ionized Calcium Urine WBC (Auto) Coronavirus (PCR) SARS-CoV-2 IgG Ab Crossmatch 06/26/20 06/26/20 06/26/20 11:58 17:58 21:32 WBC RBC Hgb Hct MCV MCH MCHC RDW Lymph % (Auto) [place] % (Auto) Lymph # (Auto) [place] # (Auto) Baso # (Auto) Seg Neutrophils % Seg Neuts % (Manual) Lymphocytes % (Manual) Nucleated RBC % Seg Neutrophils # Seg Neutrophils # Man Lymphocytes # (Manual) Monocytes # (Manual) Eosinophils # (Manual) PT INR APTT D-Dimer Heparin Anti-Xa Level ABG pH POC ABG pCO2 POC ABG pO2 ABG pO2 ABG HCO3 ABG O2 Saturation ABG Base Excess ABG Hemoglobin ABG Oxyhemoglobin ABG Sodium ABG Potassium ABG Chloride ABG Glucose Oxyhemoglobin Carboxyhemoglobin Sodium Potassium Chloride Carbon Dioxide BUN Creatinine Glucose POC Glucose 198 H 193 H 191 H Lactic Acid Calcium Magnesium Ferritin Total Bilirubin Direct Bilirubin AST ALT Alkaline Phosphatase Lactate Dehydrogenase C-Reactive Protein Total Protein Albumin Triglycerides Lipase Arterial Blood Glucose Arterial Blood Ionized Calcium Urine WBC (Auto) Coronavirus (PCR) SARS-CoV-2 IgG Ab Crossmatch 06/26/20 06/27/20 06/27/20 23:40 04:35 05:32 WBC RBC Hgb Hct MCV MCH MCHC RDW Lymph % (Auto) [place] % (Auto) Lymph # (Auto) [place] # (Auto) Baso # (Auto) Seg Neutrophils % Seg Neuts % (Manual) Lymphocytes % (Manual) Nucleated RBC % Seg Neutrophils # Seg Neutrophils # Man Lymphocytes # (Manual) Monocytes # (Manual) Eosinophils # (Manual) PT INR APTT D-Dimer Heparin Anti-Xa Level ABG pH 7.464 H POC ABG pCO2 60.8 H POC ABG pO2 ABG pO2 ABG HCO3 ABG O2 Saturation ABG Base Excess ABG Hemoglobin 10.1 L ABG Oxyhemoglobin ABG Sodium ABG Potassium 2.9 L ABG Chloride 92.0 L ABG Glucose 298 H Oxyhemoglobin Carboxyhemoglobin Sodium Potassium Chloride Carbon Dioxide BUN Creatinine Glucose POC Glucose 241 H 211 H Lactic Acid Calcium Magnesium Ferritin Total Bilirubin Direct Bilirubin AST ALT Alkaline Phosphatase Lactate Dehydrogenase C-Reactive Protein Total Protein Albumin Triglycerides Lipase Arterial Blood Glucose 298 H Arterial Blood Ionized Calcium Urine WBC (Auto) Coronavirus (PCR) SARS-CoV-2 IgG Ab Crossmatch 06/27/20 06/27/20 06/27/20 12:37 18:08 20:52 WBC RBC Hgb Hct MCV MCH MCHC RDW Lymph % (Auto) [place] % (Auto) Lymph # (Auto) [place] # (Auto) Baso # (Auto) Seg Neutrophils % Seg Neuts % (Manual) Lymphocytes % (Manual) Nucleated RBC % Seg Neutrophils # Seg Neutrophils # Man Lymphocytes # (Manual) Monocytes # (Manual) Eosinophils # (Manual) PT INR APTT D-Dimer Heparin Anti-Xa Level ABG pH POC ABG pCO2 POC ABG pO2 ABG pO2 ABG HCO3 ABG O2 Saturation ABG Base Excess ABG Hemoglobin ABG Oxyhemoglobin ABG Sodium ABG Potassium ABG Chloride ABG Glucose Oxyhemoglobin Carboxyhemoglobin Sodium Potassium Chloride Carbon Dioxide BUN Creatinine Glucose POC Glucose 182 H 197 H 195 H Lactic Acid Calcium Magnesium Ferritin Total Bilirubin Direct Bilirubin AST ALT Alkaline Phosphatase Lactate Dehydrogenase C-Reactive Protein Total Protein Albumin Triglycerides Lipase Arterial Blood Glucose Arterial Blood Ionized Calcium Urine WBC (Auto) Coronavirus (PCR) SARS-CoV-2 IgG Ab Crossmatch 06/27/20 06/28/20 06/28/20 Unknown 04:17 04:50 WBC RBC Hgb Hct MCV MCH MCHC RDW Lymph % (Auto) [place] % (Auto) Lymph # (Auto) [place] # (Auto) Baso # (Auto) Seg Neutrophils % Seg Neuts % (Manual) Lymphocytes % (Manual) Nucleated RBC % Seg Neutrophils # Seg Neutrophils # Man Lymphocytes # (Manual) Monocytes # (Manual) Eosinophils # (Manual) PT INR APTT D-Dimer Heparin Anti-Xa Level ABG pH POC ABG pCO2 58.6 H POC ABG pO2 60.1 L ABG pO2 ABG HCO3 ABG O2 Saturation ABG Base Excess ABG Hemoglobin 10.0 L ABG Oxyhemoglobin ABG Sodium 125.3 L ABG Potassium ABG Chloride 93.0 L ABG Glucose 308 H Oxyhemoglobin Carboxyhemoglobin Sodium Potassium 2.9 L* Chloride 93.4 L Carbon Dioxide 42 H* BUN Creatinine 0.3 L Glucose 211 H POC Glucose 252 H Lactic Acid Calcium 8.1 L Magnesium Ferritin Total Bilirubin Direct Bilirubin AST ALT Alkaline Phosphatase Lactate Dehydrogenase C-Reactive Protein Total Protein 5.1 L Albumin 2.4 L Triglycerides Lipase Arterial Blood Glucose 308 H Arterial Blood Ionized Calcium Urine WBC (Auto) Coronavirus (PCR) SARS-CoV-2 IgG Ab Crossmatch 06/28/20 06/28/20 06/28/20 06:35 06:35 11:36 WBC 18.9 H RBC 2.85 L Hgb 9.5 L Hct 28.4 L MCV 100 H MCH 33 H MCHC RDW 17.3 H Lymph % (Auto) [place] % (Auto) Lymph # (Auto) [place] # (Auto) Baso # (Auto) Seg Neutrophils % 88.6 H Seg Neuts % (Manual) 95.0 H Lymphocytes % (Manual) 1.0 L Nucleated RBC % Seg Neutrophils # 15.9 H Seg Neutrophils # Man 18.0 H Lymphocytes # (Manual) 0.2 L Monocytes # (Manual) Eosinophils # (Manual) PT INR APTT D-Dimer Heparin Anti-Xa Level ABG pH POC ABG pCO2 POC ABG pO2 ABG pO2 ABG HCO3 ABG O2 Saturation ABG Base Excess ABG Hemoglobin ABG Oxyhemoglobin ABG Sodium ABG Potassium ABG Chloride ABG Glucose Oxyhemoglobin Carboxyhemoglobin Sodium Potassium Chloride 94.2 L Carbon Dioxide 38 H BUN Creatinine 0.3 L Glucose 228 H POC Glucose 243 H Lactic Acid Calcium Magnesium Ferritin Total Bilirubin Direct Bilirubin AST ALT Alkaline Phosphatase Lactate Dehydrogenase C-Reactive Protein Total Protein 6.1 L Albumin 2.7 L Triglycerides Lipase Arterial Blood Glucose Arterial Blood Ionized Calcium Urine WBC (Auto) Coronavirus (PCR) SARS-CoV-2 IgG Ab Crossmatch 06/28/20 06/28/20 06/29/20 16:53 21:10 00:06 WBC RBC Hgb Hct MCV MCH MCHC RDW Lymph % (Auto) [place] % (Auto) Lymph # (Auto) [place] # (Auto) Baso # (Auto) Seg Neutrophils % Seg Neuts % (Manual) Lymphocytes % (Manual) Nucleated RBC % Seg Neutrophils # Seg Neutrophils # Man Lymphocytes # (Manual) Monocytes # (Manual) Eosinophils # (Manual) PT INR APTT D-Dimer Heparin Anti-Xa Level ABG pH POC ABG pCO2 POC ABG pO2 ABG pO2 ABG HCO3 ABG O2 Saturation ABG Base Excess ABG Hemoglobin ABG Oxyhemoglobin ABG Sodium ABG Potassium ABG Chloride ABG Glucose Oxyhemoglobin Carboxyhemoglobin Sodium Potassium Chloride Carbon Dioxide BUN Creatinine Glucose POC Glucose 211 H 195 H 200 H Lactic Acid Calcium Magnesium Ferritin Total Bilirubin Direct Bilirubin AST ALT Alkaline Phosphatase Lactate Dehydrogenase C-Reactive Protein Total Protein Albumin Triglycerides Lipase Arterial Blood Glucose Arterial Blood Ionized Calcium Urine WBC (Auto) Coronavirus (PCR) SARS-CoV-2 IgG Ab Crossmatch 06/29/20 06/29/20 06/29/20 03:11 04:00 04:00 WBC 18.8 H RBC 2.82 L Hgb 10.1 L Hct 28.5 L MCV 101 H MCH 36 H MCHC 36 H RDW 17.5 H Lymph % (Auto) 10.7 L [place] % (Auto) Lymph # (Auto) [place] # (Auto) 1.0 H Baso # (Auto) 0.3 H Seg Neutrophils % 82.2 H Seg Neuts % (Manual) Lymphocytes % (Manual) Nucleated RBC % Seg Neutrophils # 15.5 H Seg Neutrophils # Man Lymphocytes # (Manual) Monocytes # (Manual) Eosinophils # (Manual) PT INR APTT D-Dimer Heparin Anti-Xa Level ABG pH POC ABG pCO2 57.5 H POC ABG pO2 69.1 L ABG pO2 ABG HCO3 ABG O2 Saturation ABG Base Excess ABG Hemoglobin 10.2 L ABG Oxyhemoglobin 92.3 L ABG Sodium 130.7 L ABG Potassium 3.2 L ABG Chloride 93.0 L ABG Glucose 228 H Oxyhemoglobin Carboxyhemoglobin Sodium 134 L Potassium 3.3 L Chloride 89.5 L Carbon Dioxide 40 H BUN Creatinine 0.2 L Glucose 190 H POC Glucose Lactic Acid Calcium Magnesium Ferritin Total Bilirubin Direct Bilirubin AST < 5 L ALT < 5 L Alkaline Phosphatase Lactate Dehydrogenase C-Reactive Protein Total Protein 5.9 L Albumin 2.2 L Triglycerides Lipase Arterial Blood Glucose 228 H Arterial Blood Ionized Calcium Urine WBC (Auto) Coronavirus (PCR) SARS-CoV-2 IgG Ab Crossmatch 06/29/20 06/29/20 06/29/20 05:00 05:23 09:36 WBC RBC Hgb Hct MCV MCH MCHC RDW Lymph % (Auto) [place] % (Auto) Lymph # (Auto) [place] # (Auto) Baso # (Auto) Seg Neutrophils % Seg Neuts % (Manual) Lymphocytes % (Manual) Nucleated RBC % Seg Neutrophils # Seg Neutrophils # Man Lymphocytes # (Manual) Monocytes # (Manual) Eosinophils # (Manual) PT INR APTT D-Dimer Heparin Anti-Xa Level ABG pH POC ABG pCO2 POC ABG pO2 ABG pO2 ABG HCO3 ABG O2 Saturation ABG Base Excess ABG Hemoglobin ABG Oxyhemoglobin ABG Sodium ABG Potassium ABG Chloride ABG Glucose Oxyhemoglobin Carboxyhemoglobin Sodium Potassium Chloride Carbon Dioxide BUN Creatinine Glucose POC Glucose 165 H Lactic Acid Calcium Magnesium Ferritin Total Bilirubin Direct Bilirubin AST ALT Alkaline Phosphatase Lactate Dehydrogenase C-Reactive Protein Total Protein Albumin Triglycerides 1544 H 1799 H Lipase Arterial Blood Glucose Arterial Blood Ionized Calcium Urine WBC (Auto) Coronavirus (PCR) SARS-CoV-2 IgG Ab Crossmatch 06/29/20 06/29/20 06/29/20 09:36 12:02 18:00 WBC RBC Hgb Hct MCV MCH MCHC RDW Lymph % (Auto) [place] % (Auto) Lymph # (Auto) [place] # (Auto) Baso # (Auto) Seg Neutrophils % Seg Neuts % (Manual) Lymphocytes % (Manual) Nucleated RBC % Seg Neutrophils # Seg Neutrophils # Man Lymphocytes # (Manual) Monocytes # (Manual) Eosinophils # (Manual) PT INR APTT D-Dimer Heparin Anti-Xa Level ABG pH POC ABG pCO2 POC ABG pO2 ABG pO2 ABG HCO3 ABG O2 Saturation ABG Base Excess ABG Hemoglobin ABG Oxyhemoglobin ABG Sodium ABG Potassium ABG Chloride ABG Glucose Oxyhemoglobin Carboxyhemoglobin Sodium Potassium Chloride Carbon Dioxide BUN Creatinine Glucose POC Glucose 197 H 187 H Lactic Acid Calcium Magnesium Ferritin Total Bilirubin Direct Bilirubin AST ALT Alkaline Phosphatase Lactate Dehydrogenase C-Reactive Protein Total Protein Albumin Triglycerides Lipase 86 H Arterial Blood Glucose Arterial Blood Ionized Calcium Urine WBC (Auto) Coronavirus (PCR) SARS-CoV-2 IgG Ab Crossmatch 06/29/20 06/30/20 06/30/20 23:33 03:46 05:50 WBC RBC Hgb Hct MCV MCH MCHC RDW Lymph % (Auto) [place] % (Auto) Lymph # (Auto) [place] # (Auto) Baso # (Auto) Seg Neutrophils % Seg Neuts % (Manual) Lymphocytes % (Manual) Nucleated RBC % Seg Neutrophils # Seg Neutrophils # Man Lymphocytes # (Manual) Monocytes # (Manual) Eosinophils # (Manual) PT INR APTT D-Dimer Heparin Anti-Xa Level ABG pH 7.466 H POC ABG pCO2 57.3 H POC ABG pO2 66.1 L ABG pO2 ABG HCO3 ABG O2 Saturation ABG Base Excess ABG Hemoglobin 10.2 L ABG Oxyhemoglobin 92.3 L ABG Sodium 134.4 L ABG Potassium 3.2 L ABG Chloride 94.0 L ABG Glucose 178 H Oxyhemoglobin Carboxyhemoglobin Sodium Potassium Chloride Carbon Dioxide BUN Creatinine Glucose POC Glucose 170 H 170 H Lactic Acid Calcium Magnesium Ferritin Total Bilirubin Direct Bilirubin AST ALT Alkaline Phosphatase Lactate Dehydrogenase C-Reactive Protein Total Protein Albumin Triglycerides Lipase Arterial Blood Glucose 178 H Arterial Blood Ionized Calcium Urine WBC (Auto) Coronavirus (PCR) SARS-CoV-2 IgG Ab Crossmatch 06/30/20 06/30/20 06/30/20 07:00 07:00 12:04 WBC 15.6 H RBC 2.91 L Hgb 9.8 L Hct 29.7 L MCV 102 H MCH 34 H MCHC RDW 17.8 H Lymph % (Auto) [place] % (Auto) Lymph # (Auto) [place] # (Auto) Baso # (Auto) Seg Neutrophils % Seg Neuts % (Manual) Lymphocytes % (Manual) 5.0 L Nucleated RBC % Seg Neutrophils # Seg Neutrophils # Man 14.8 H Lymphocytes # (Manual) 0.8 L Monocytes # (Manual) Eosinophils # (Manual) PT INR APTT D-Dimer Heparin Anti-Xa Level ABG pH POC ABG pCO2 POC ABG pO2 ABG pO2 ABG HCO3 ABG O2 Saturation ABG Base Excess ABG Hemoglobin ABG Oxyhemoglobin ABG Sodium ABG Potassium ABG Chloride ABG Glucose Oxyhemoglobin Carboxyhemoglobin Sodium Potassium Chloride 93.3 L Carbon Dioxide 43 H* BUN Creatinine 0.3 L Glucose 260 H POC Glucose 245 H Lactic Acid Calcium Magnesium Ferritin Total Bilirubin Direct Bilirubin AST ALT Alkaline Phosphatase Lactate Dehydrogenase C-Reactive Protein Total Protein Albumin 2.8 L Triglycerides 452 H Lipase Arterial Blood Glucose Arterial Blood Ionized Calcium Urine WBC (Auto) Coronavirus (PCR) SARS-CoV-2 IgG Ab Crossmatch 06/30/20 07/01/20 07/01/20 17:32 00:02 05:02 WBC RBC Hgb Hct MCV MCH MCHC RDW Lymph % (Auto) [place] % (Auto) Lymph # (Auto) [place] # (Auto) Baso # (Auto) Seg Neutrophils % Seg Neuts % (Manual) Lymphocytes % (Manual) Nucleated RBC % Seg Neutrophils # Seg Neutrophils # Man Lymphocytes # (Manual) Monocytes # (Manual) Eosinophils # (Manual) PT INR APTT D-Dimer Heparin Anti-Xa Level ABG pH POC ABG pCO2 58.1 H POC ABG pO2 ABG pO2 ABG HCO3 ABG O2 Saturation ABG Base Excess ABG Hemoglobin 11.2 L ABG Oxyhemoglobin ABG Sodium 132.7 L ABG Potassium ABG Chloride 92.0 L ABG Glucose 238 H Oxyhemoglobin Carboxyhemoglobin Sodium Potassium Chloride Carbon Dioxide BUN Creatinine Glucose POC Glucose 209 H 208 H Lactic Acid Calcium Magnesium Ferritin Total Bilirubin Direct Bilirubin AST ALT Alkaline Phosphatase Lactate Dehydrogenase C-Reactive Protein Total Protein Albumin Triglycerides Lipase Arterial Blood Glucose 238 H Arterial Blood Ionized Calcium Urine WBC (Auto) Coronavirus (PCR) SARS-CoV-2 IgG Ab Crossmatch 07/01/20 07/01/20 07/01/20 06:16 06:41 06:41 WBC 18.1 H RBC 2.33 L Hgb 7.1 L Hct 21.3 L D MCV MCH MCHC RDW Lymph % (Auto) [place] % (Auto) Lymph # (Auto) [place] # (Auto) Baso # (Auto) Seg Neutrophils % Seg Neuts % (Manual) 82.0 H Lymphocytes % (Manual) 7.0 L Nucleated RBC % 1.0 H Seg Neutrophils # Seg Neutrophils # Man 14.8 H Lymphocytes # (Manual) Monocytes # (Manual) 1.1 H Eosinophils # (Manual) 0.5 H PT INR APTT D-Dimer Heparin Anti-Xa Level < 0.10 L ABG pH POC ABG pCO2 POC ABG pO2 ABG pO2 ABG HCO3 ABG O2 Saturation ABG Base Excess ABG Hemoglobin ABG Oxyhemoglobin ABG Sodium ABG Potassium ABG Chloride ABG Glucose Oxyhemoglobin Carboxyhemoglobin Sodium Potassium Chloride Carbon Dioxide BUN Creatinine Glucose POC Glucose 180 H Lactic Acid Calcium Magnesium Ferritin Total Bilirubin Direct Bilirubin AST ALT Alkaline Phosphatase Lactate Dehydrogenase C-Reactive Protein Total Protein Albumin Triglycerides Lipase Arterial Blood Glucose Arterial Blood Ionized Calcium Urine WBC (Auto) Coronavirus (PCR) SARS-CoV-2 IgG Ab Crossmatch 07/01/20 07/01/20 07/01/20 08:11 12:04 16:16 WBC RBC Hgb Hct MCV MCH MCHC RDW Lymph % (Auto) [place] % (Auto) Lymph # (Auto) [place] # (Auto) Baso # (Auto) Seg Neutrophils % Seg Neuts % (Manual) Lymphocytes % (Manual) Nucleated RBC % Seg Neutrophils # Seg Neutrophils # Man Lymphocytes # (Manual) Monocytes # (Manual) Eosinophils # (Manual) PT INR APTT D-Dimer Heparin Anti-Xa Level 1.02 H ABG pH POC ABG pCO2 POC ABG pO2 ABG pO2 ABG HCO3 ABG O2 Saturation ABG Base Excess ABG Hemoglobin ABG Oxyhemoglobin ABG Sodium ABG Potassium ABG Chloride ABG Glucose Oxyhemoglobin Carboxyhemoglobin Sodium 135 L Potassium 3.0 L Chloride 93.1 L Carbon Dioxide 40 H BUN Creatinine 0.3 L Glucose 140 H POC Glucose 223 H Lactic Acid Calcium Magnesium Ferritin Total Bilirubin Direct Bilirubin AST ALT Alkaline Phosphatase Lactate Dehydrogenase C-Reactive Protein Total Protein Albumin Triglycerides Lipase Arterial Blood Glucose Arterial Blood Ionized Calcium Urine WBC (Auto) Coronavirus (PCR) SARS-CoV-2 IgG Ab Crossmatch 07/01/20 07/01/20 07/02/20 17:09 23:19 00:56 WBC RBC Hgb Hct MCV MCH MCHC RDW Lymph % (Auto) [place] % (Auto) Lymph # (Auto) [place] # (Auto) Baso # (Auto) Seg Neutrophils % Seg Neuts % (Manual) Lymphocytes % (Manual) Nucleated RBC % Seg Neutrophils # Seg Neutrophils # Man Lymphocytes # (Manual) Monocytes # (Manual) Eosinophils # (Manual) PT INR APTT D-Dimer Heparin Anti-Xa Level 0.22 L ABG pH POC ABG pCO2 POC ABG pO2 ABG pO2 ABG HCO3 ABG O2 Saturation ABG Base Excess ABG Hemoglobin ABG Oxyhemoglobin ABG Sodium ABG Potassium ABG Chloride ABG Glucose Oxyhemoglobin Carboxyhemoglobin Sodium Potassium Chloride Carbon Dioxide BUN Creatinine Glucose POC Glucose 233 H 255 H Lactic Acid Calcium Magnesium Ferritin Total Bilirubin Direct Bilirubin AST ALT Alkaline Phosphatase Lactate Dehydrogenase C-Reactive Protein Total Protein Albumin Triglycerides Lipase Arterial Blood Glucose Arterial Blood Ionized Calcium Urine WBC (Auto) Coronavirus (PCR) SARS-CoV-2 IgG Ab Crossmatch 07/02/20 07/02/20 07/02/20 03:51 05:35 11:39 WBC RBC Hgb Hct MCV MCH MCHC RDW Lymph % (Auto) [place] % (Auto) Lymph # (Auto) [place] # (Auto) Baso # (Auto) Seg Neutrophils % Seg Neuts % (Manual) Lymphocytes % (Manual) Nucleated RBC % Seg Neutrophils # Seg Neutrophils # Man Lymphocytes # (Manual) Monocytes # (Manual) Eosinophils # (Manual) PT INR APTT D-Dimer Heparin Anti-Xa Level ABG pH POC ABG pCO2 54.9 H POC ABG pO2 52.1 L ABG pO2 ABG HCO3 ABG O2 Saturation ABG Base Excess ABG Hemoglobin 11.9 L ABG Oxyhemoglobin 82.8 L ABG Sodium 130.2 L ABG Potassium ABG Chloride 92.0 L ABG Glucose 249 H Oxyhemoglobin Carboxyhemoglobin 1.9 H Sodium Potassium Chloride Carbon Dioxide BUN Creatinine Glucose POC Glucose 205 H 235 H Lactic Acid Calcium Magnesium Ferritin Total Bilirubin Direct Bilirubin AST ALT Alkaline Phosphatase Lactate Dehydrogenase C-Reactive Protein Total Protein Albumin Triglycerides Lipase Arterial Blood Glucose 249 H Arterial Blood Ionized Calcium Urine WBC (Auto) Coronavirus (PCR) SARS-CoV-2 IgG Ab Crossmatch 07/02/20 07/02/20 07/02/20 16:08 16:08 17:54 WBC 19.8 H RBC 3.28 L Hgb 10.7 L D Hct 32.7 L D MCV 100 H MCH 33 H MCHC RDW 17.2 H Lymph % (Auto) [place] % (Auto) Lymph # (Auto) [place] # (Auto) Baso # (Auto) Seg Neutrophils % Seg Neuts % (Manual) Lymphocytes % (Manual) Nucleated RBC % Seg Neutrophils # Seg Neutrophils # Man Lymphocytes # (Manual) Monocytes # (Manual) Eosinophils # (Manual) PT INR APTT D-Dimer Heparin Anti-Xa Level ABG pH POC ABG pCO2 POC ABG pO2 ABG pO2 ABG HCO3 ABG O2 Saturation ABG Base Excess ABG Hemoglobin ABG Oxyhemoglobin ABG Sodium ABG Potassium ABG Chloride ABG Glucose Oxyhemoglobin Carboxyhemoglobin Sodium 136 L Potassium Chloride 92.4 L Carbon Dioxide 35 H BUN Creatinine 0.3 L Glucose 203 H POC Glucose 175 H Lactic Acid Calcium Magnesium Ferritin Total Bilirubin Direct Bilirubin AST ALT Alkaline Phosphatase Lactate Dehydrogenase C-Reactive Protein Total Protein Albumin Triglycerides Lipase Arterial Blood Glucose Arterial Blood Ionized Calcium Urine WBC (Auto) Coronavirus (PCR) SARS-CoV-2 IgG Ab Crossmatch 07/02/20 07/03/20 07/03/20 23:46 03:25 05:54 WBC RBC Hgb Hct MCV MCH MCHC RDW Lymph % (Auto) [place] % (Auto) Lymph # (Auto) [place] # (Auto) Baso # (Auto) Seg Neutrophils % Seg Neuts % (Manual) Lymphocytes % (Manual) Nucleated RBC % Seg Neutrophils # Seg Neutrophils # Man Lymphocytes # (Manual) Monocytes # (Manual) Eosinophils # (Manual) PT INR APTT D-Dimer Heparin Anti-Xa Level ABG pH 7.468 H POC ABG pCO2 51.5 H POC ABG pO2 ABG pO2 ABG HCO3 ABG O2 Saturation ABG Base Excess ABG Hemoglobin ABG Oxyhemoglobin ABG Sodium 130.2 L ABG Potassium ABG Chloride 91.0 L ABG Glucose 210 H Oxyhemoglobin Carboxyhemoglobin 1.6 H Sodium Potassium Chloride Carbon Dioxide BUN Creatinine Glucose POC Glucose 173 H 125 H Lactic Acid Calcium Magnesium Ferritin Total Bilirubin Direct Bilirubin AST ALT Alkaline Phosphatase Lactate Dehydrogenase C-Reactive Protein Total Protein Albumin Triglycerides Lipase Arterial Blood Glucose 210 H Arterial Blood Ionized Calcium Urine WBC (Auto) Coronavirus (PCR) SARS-CoV-2 IgG Ab Crossmatch 07/03/20 07/03/20 07/03/20 11:43 12:20 12:20 WBC 16.5 H RBC 3.13 L Hgb 10.4 L Hct 31.8 L MCV 102 H MCH 33 H MCHC RDW 17.2 H Lymph % (Auto) [place] % (Auto) Lymph # (Auto) [place] # (Auto) Baso # (Auto) Seg Neutrophils % Seg Neuts % (Manual) Lymphocytes % (Manual) Nucleated RBC % Seg Neutrophils # Seg Neutrophils # Man Lymphocytes # (Manual) Monocytes # (Manual) Eosinophils # (Manual) PT INR APTT D-Dimer Heparin Anti-Xa Level ABG pH POC ABG pCO2 POC ABG pO2 ABG pO2 ABG HCO3 ABG O2 Saturation ABG Base Excess ABG Hemoglobin ABG Oxyhemoglobin ABG Sodium ABG Potassium ABG Chloride ABG Glucose Oxyhemoglobin Carboxyhemoglobin Sodium 132 L Potassium Chloride 88.5 L Carbon Dioxide 37 H BUN Creatinine 0.3 L Glucose 230 H POC Glucose 223 H Lactic Acid Calcium Magnesium Ferritin Total Bilirubin Direct Bilirubin AST ALT Alkaline Phosphatase Lactate Dehydrogenase C-Reactive Protein Total Protein Albumin Triglycerides Lipase Arterial Blood Glucose Arterial Blood Ionized Calcium Urine WBC (Auto) Coronavirus (PCR) SARS-CoV-2 IgG Ab Crossmatch 07/03/20 07/03/20 07/04/20 17:24 21:41 00:54 WBC RBC Hgb Hct MCV MCH MCHC RDW Lymph % (Auto) [place] % (Auto) Lymph # (Auto) [place] # (Auto) Baso # (Auto) Seg Neutrophils % Seg Neuts % (Manual) Lymphocytes % (Manual) Nucleated RBC % Seg Neutrophils # Seg Neutrophils # Man Lymphocytes # (Manual) Monocytes # (Manual) Eosinophils # (Manual) PT INR APTT D-Dimer Heparin Anti-Xa Level ABG pH POC ABG pCO2 POC ABG pO2 ABG pO2 ABG HCO3 ABG O2 Saturation ABG Base Excess ABG Hemoglobin ABG Oxyhemoglobin ABG Sodium ABG Potassium ABG Chloride ABG Glucose Oxyhemoglobin Carboxyhemoglobin Sodium Potassium Chloride Carbon Dioxide BUN Creatinine Glucose POC Glucose 163 H 220 H 195 H Lactic Acid Calcium Magnesium Ferritin Total Bilirubin Direct Bilirubin AST ALT Alkaline Phosphatase Lactate Dehydrogenase C-Reactive Protein Total Protein Albumin Triglycerides Lipase Arterial Blood Glucose Arterial Blood Ionized Calcium Urine WBC (Auto) Coronavirus (PCR) SARS-CoV-2 IgG Ab Crossmatch 07/04/20 07/04/20 07/04/20 03:25 04:00 04:00 WBC 14.9 H RBC 2.91 L Hgb 9.5 L Hct 29.2 L MCV 100 H MCH 33 H MCHC RDW 16.7 H Lymph % (Auto) 8.4 L [place] % (Auto) Lymph # (Auto) [place] # (Auto) 1.1 H Baso # (Auto) Seg Neutrophils % 84.2 H Seg Neuts % (Manual) Lymphocytes % (Manual) Nucleated RBC % Seg Neutrophils # 12.6 H Seg Neutrophils # Man Lymphocytes # (Manual) Monocytes # (Manual) Eosinophils # (Manual) PT INR APTT D-Dimer Heparin Anti-Xa Level ABG pH 7.474 H POC ABG pCO2 POC ABG pO2 51.8 L ABG pO2 ABG HCO3 ABG O2 Saturation ABG Base Excess ABG Hemoglobin ABG Oxyhemoglobin ABG Sodium ABG Potassium ABG Chloride ABG Glucose Oxyhemoglobin Carboxyhemoglobin Sodium Potassium 3.4 L Chloride 92.1 L Carbon Dioxide 34 H BUN Creatinine 0.3 L Glucose 173 H POC Glucose Lactic Acid Calcium Magnesium Ferritin Total Bilirubin Direct Bilirubin AST ALT Alkaline Phosphatase Lactate Dehydrogenase C-Reactive Protein Total Protein Albumin Triglycerides Lipase Arterial Blood Glucose Arterial Blood Ionized Calcium Urine WBC (Auto) Coronavirus (PCR) SARS-CoV-2 IgG Ab Crossmatch 07/04/20 07/04/20 07/04/20 06:18 11:39 17:18 WBC RBC Hgb Hct MCV MCH MCHC RDW Lymph % (Auto) [place] % (Auto) Lymph # (Auto) [place] # (Auto) Baso # (Auto) Seg Neutrophils % Seg Neuts % (Manual) Lymphocytes % (Manual) Nucleated RBC % Seg Neutrophils # Seg Neutrophils # Man Lymphocytes # (Manual) Monocytes # (Manual) Eosinophils # (Manual) PT INR APTT D-Dimer Heparin Anti-Xa Level ABG pH POC ABG pCO2 POC ABG pO2 ABG pO2 ABG HCO3 ABG O2 Saturation ABG Base Excess ABG Hemoglobin ABG Oxyhemoglobin ABG Sodium ABG Potassium ABG Chloride ABG Glucose Oxyhemoglobin Carboxyhemoglobin Sodium Potassium Chloride Carbon Dioxide BUN Creatinine Glucose POC Glucose 158 H 257 H 148 H Lactic Acid Calcium Magnesium Ferritin Total Bilirubin Direct Bilirubin AST ALT Alkaline Phosphatase Lactate Dehydrogenase C-Reactive Protein Total Protein Albumin Triglycerides Lipase Arterial Blood Glucose Arterial Blood Ionized Calcium Urine WBC (Auto) Coronavirus (PCR) SARS-CoV-2 IgG Ab Crossmatch 07/04/20 07/05/20 07/05/20 23:23 03:13 05:18 WBC 13.3 H RBC 2.90 L Hgb 9.8 L Hct 29.3 L MCV 101 H MCH 34 H MCHC RDW 17.0 H Lymph % (Auto) 11.1 L [place] % (Auto) Lymph # (Auto) [place] # (Auto) Baso # (Auto) Seg Neutrophils % 82.3 H Seg Neuts % (Manual) Lymphocytes % (Manual) Nucleated RBC % Seg Neutrophils # 10.9 H Seg Neutrophils # Man Lymphocytes # (Manual) Monocytes # (Manual) Eosinophils # (Manual) PT INR APTT D-Dimer Heparin Anti-Xa Level ABG pH 7.48 H POC ABG pCO2 52.0 H POC ABG pO2 ABG pO2 ABG HCO3 ABG O2 Saturation ABG Base Excess ABG Hemoglobin 10.0 L ABG Oxyhemoglobin ABG Sodium 131.0 L ABG Potassium 3.3 L ABG Chloride 93.0 L ABG Glucose 177 H Oxyhemoglobin Carboxyhemoglobin Sodium Potassium Chloride Carbon Dioxide BUN Creatinine Glucose POC Glucose 227 H Lactic Acid Calcium Magnesium Ferritin Total Bilirubin Direct Bilirubin AST ALT Alkaline Phosphatase Lactate Dehydrogenase C-Reactive Protein Total Protein Albumin Triglycerides Lipase Arterial Blood Glucose 177 H Arterial Blood Ionized Calcium Urine WBC (Auto) Coronavirus (PCR) SARS-CoV-2 IgG Ab Crossmatch 07/05/20 07/05/20 07/05/20 05:18 05:25 05:57 WBC RBC Hgb Hct MCV MCH MCHC RDW Lymph % (Auto) [place] % (Auto) Lymph # (Auto) [place] # (Auto) Baso # (Auto) Seg Neutrophils % Seg Neuts % (Manual) Lymphocytes % (Manual) Nucleated RBC % Seg Neutrophils # Seg Neutrophils # Man Lymphocytes # (Manual) Monocytes # (Manual) Eosinophils # (Manual) PT INR APTT D-Dimer Heparin Anti-Xa Level ABG pH 7.519 H POC ABG pCO2 POC ABG pO2 198.6 H ABG pO2 ABG HCO3 ABG O2 Saturation ABG Base Excess ABG Hemoglobin 10.3 L ABG Oxyhemoglobin 98.7 H ABG Sodium 133.6 L ABG Potassium 3.3 L ABG Chloride 93.0 L ABG Glucose 175 H Oxyhemoglobin Carboxyhemoglobin Sodium Potassium 3.4 L Chloride 92.5 L Carbon Dioxide 36 H BUN Creatinine 0.3 L Glucose 148 H POC Glucose 170 H Lactic Acid Calcium Magnesium Ferritin Total Bilirubin Direct Bilirubin AST ALT Alkaline Phosphatase Lactate Dehydrogenase C-Reactive Protein Total Protein Albumin Triglycerides Lipase Arterial Blood Glucose 175 H Arterial Blood Ionized Calcium Urine WBC (Auto) Coronavirus (PCR) SARS-CoV-2 IgG Ab Crossmatch 07/05/20 07/05/20 07/06/20 11:37 18:39 00:04 WBC RBC Hgb Hct MCV MCH MCHC RDW Lymph % (Auto) [place] % (Auto) Lymph # (Auto) [place] # (Auto) Baso # (Auto) Seg Neutrophils % Seg Neuts % (Manual) Lymphocytes % (Manual) Nucleated RBC % Seg Neutrophils # Seg Neutrophils # Man Lymphocytes # (Manual) Monocytes # (Manual) Eosinophils # (Manual) PT INR APTT D-Dimer Heparin Anti-Xa Level ABG pH POC ABG pCO2 POC ABG pO2 ABG pO2 ABG HCO3 ABG O2 Saturation ABG Base Excess ABG Hemoglobin ABG Oxyhemoglobin ABG Sodium ABG Potassium ABG Chloride ABG Glucose Oxyhemoglobin Carboxyhemoglobin Sodium Potassium Chloride Carbon Dioxide BUN Creatinine Glucose POC Glucose 195 H 200 H 222 H Lactic Acid Calcium Magnesium Ferritin Total Bilirubin Direct Bilirubin AST ALT Alkaline Phosphatase Lactate Dehydrogenase C-Reactive Protein Total Protein Albumin Triglycerides Lipase Arterial Blood Glucose Arterial Blood Ionized Calcium Urine WBC (Auto) Coronavirus (PCR) SARS-CoV-2 IgG Ab Crossmatch 07/06/20 07/06/20 07/06/20 05:25 06:52 06:52 WBC 15.8 H RBC 3.17 L Hgb 10.4 L Hct 31.5 L MCV 99 H MCH 33 H MCHC RDW 17.0 H Lymph % (Auto) [place] % (Auto) Lymph # (Auto) [place] # (Auto) Baso # (Auto) Seg Neutrophils % Seg Neuts % (Manual) Lymphocytes % (Manual) Nucleated RBC % Seg Neutrophils # Seg Neutrophils # Man Lymphocytes # (Manual) Monocytes # (Manual) Eosinophils # (Manual) PT INR APTT D-Dimer Heparin Anti-Xa Level ABG pH POC ABG pCO2 POC ABG pO2 ABG pO2 ABG HCO3 ABG O2 Saturation ABG Base Excess ABG Hemoglobin ABG Oxyhemoglobin ABG Sodium ABG Potassium ABG Chloride ABG Glucose Oxyhemoglobin Carboxyhemoglobin Sodium 135 L Potassium 3.4 L Chloride 91.9 L Carbon Dioxide 38 H BUN Creatinine 0.3 L Glucose 189 H POC Glucose 165 H Lactic Acid Calcium Magnesium Ferritin Total Bilirubin Direct Bilirubin AST ALT Alkaline Phosphatase Lactate Dehydrogenase C-Reactive Protein Total Protein Albumin Triglycerides Lipase Arterial Blood Glucose Arterial Blood Ionized Calcium Urine WBC (Auto) Coronavirus (PCR) SARS-CoV-2 IgG Ab Crossmatch 07/06/20 07/06/20 07/06/20 13:01 18:04 23:08 WBC RBC Hgb Hct MCV MCH MCHC RDW Lymph % (Auto) [place] % (Auto) Lymph # (Auto) [place] # (Auto) Baso # (Auto) Seg Neutrophils % Seg Neuts % (Manual) Lymphocytes % (Manual) Nucleated RBC % Seg Neutrophils # Seg Neutrophils # Man Lymphocytes # (Manual) Monocytes # (Manual) Eosinophils # (Manual) PT INR APTT D-Dimer Heparin Anti-Xa Level ABG pH POC ABG pCO2 POC ABG pO2 ABG pO2 ABG HCO3 ABG O2 Saturation ABG Base Excess ABG Hemoglobin ABG Oxyhemoglobin ABG Sodium ABG Potassium ABG Chloride ABG Glucose Oxyhemoglobin Carboxyhemoglobin Sodium Potassium Chloride Carbon Dioxide BUN Creatinine Glucose POC Glucose 195 H 169 H 173 H Lactic Acid Calcium Magnesium Ferritin Total Bilirubin Direct Bilirubin AST ALT Alkaline Phosphatase Lactate Dehydrogenase C-Reactive Protein Total Protein Albumin Triglycerides Lipase Arterial Blood Glucose Arterial Blood Ionized Calcium Urine WBC (Auto) Coronavirus (PCR) SARS-CoV-2 IgG Ab Crossmatch 07/07/20 07/07/20 07/07/20 05:35 05:35 05:39 WBC 17.6 H RBC 3.16 L Hgb 10.4 L Hct 31.5 L MCV 100 H MCH 33 H MCHC RDW 16.7 H Lymph % (Auto) 11.1 L [place] % (Auto) Lymph # (Auto) [place] # (Auto) 1.0 H Baso # (Auto) Seg Neutrophils % 83.0 H Seg Neuts % (Manual) Lymphocytes % (Manual) Nucleated RBC % Seg Neutrophils # 14.6 H Seg Neutrophils # Man Lymphocytes # (Manual) Monocytes # (Manual) Eosinophils # (Manual) PT INR APTT D-Dimer Heparin Anti-Xa Level ABG pH POC ABG pCO2 POC ABG pO2 ABG pO2 ABG HCO3 ABG O2 Saturation ABG Base Excess ABG Hemoglobin ABG Oxyhemoglobin ABG Sodium ABG Potassium ABG Chloride ABG Glucose Oxyhemoglobin Carboxyhemoglobin Sodium 135 L Potassium 3.4 L Chloride 94.3 L Carbon Dioxide 32 H BUN Creatinine 0.2 L Glucose 240 H POC Glucose 191 H Lactic Acid Calcium Magnesium Ferritin Total Bilirubin Direct Bilirubin AST ALT Alkaline Phosphatase Lactate Dehydrogenase C-Reactive Protein Total Protein Albumin Triglycerides Lipase Arterial Blood Glucose Arterial Blood Ionized Calcium Urine WBC (Auto) Coronavirus (PCR) SARS-CoV-2 IgG Ab Crossmatch 07/07/20 07/07/20 07/07/20 12:08 16:39 23:41 WBC RBC Hgb Hct MCV MCH MCHC RDW Lymph % (Auto) [place] % (Auto) Lymph # (Auto) [place] # (Auto) Baso # (Auto) Seg Neutrophils % Seg Neuts % (Manual) Lymphocytes % (Manual) Nucleated RBC % Seg Neutrophils # Seg Neutrophils # Man Lymphocytes # (Manual) Monocytes # (Manual) Eosinophils # (Manual) PT INR APTT D-Dimer Heparin Anti-Xa Level ABG pH POC ABG pCO2 POC ABG pO2 ABG pO2 ABG HCO3 ABG O2 Saturation ABG Base Excess ABG Hemoglobin ABG Oxyhemoglobin ABG Sodium ABG Potassium ABG Chloride ABG Glucose Oxyhemoglobin Carboxyhemoglobin Sodium Potassium Chloride Carbon Dioxide BUN Creatinine Glucose POC Glucose 248 H 209 H 231 H Lactic Acid Calcium Magnesium Ferritin Total Bilirubin Direct Bilirubin AST ALT Alkaline Phosphatase Lactate Dehydrogenase C-Reactive Protein Total Protein Albumin Triglycerides Lipase Arterial Blood Glucose Arterial Blood Ionized Calcium Urine WBC (Auto) Coronavirus (PCR) SARS-CoV-2 IgG Ab Crossmatch 07/08/20 07/08/20 07/08/20 04:58 04:58 05:38 WBC 21.0 H RBC 2.86 L Hgb 9.2 L Hct 28.6 L MCV 100 H MCH MCHC RDW 16.7 H Lymph % (Auto) [place] % (Auto) Lymph # (Auto) [place] # (Auto) Baso # (Auto) Seg Neutrophils % Seg Neuts % (Manual) 93.0 H Lymphocytes % (Manual) 3.0 L Nucleated RBC % Seg Neutrophils # Seg Neutrophils # Man 19.5 H Lymphocytes # (Manual) 0.6 L Monocytes # (Manual) Eosinophils # (Manual) PT INR APTT D-Dimer Heparin Anti-Xa Level ABG pH POC ABG pCO2 POC ABG pO2 ABG pO2 ABG HCO3 ABG O2 Saturation ABG Base Excess ABG Hemoglobin ABG Oxyhemoglobin ABG Sodium ABG Potassium ABG Chloride ABG Glucose Oxyhemoglobin Carboxyhemoglobin Sodium Potassium 3.0 L Chloride Carbon Dioxide BUN Creatinine 0.2 L Glucose 201 H POC Glucose 161 H Lactic Acid Calcium 7.9 L D Magnesium Ferritin Total Bilirubin Direct Bilirubin AST ALT Alkaline Phosphatase Lactate Dehydrogenase C-Reactive Protein Total Protein Albumin Triglycerides Lipase Arterial Blood Glucose Arterial Blood Ionized Calcium Urine WBC (Auto) Coronavirus (PCR) SARS-CoV-2 IgG Ab Crossmatch 07/08/20 07/08/20 07/08/20 12:19 16:26 Unknown WBC RBC Hgb Hct MCV MCH MCHC RDW Lymph % (Auto) [place] % (Auto) Lymph # (Auto) [place] # (Auto) Baso # (Auto) Seg Neutrophils % Seg Neuts % (Manual) Lymphocytes % (Manual) Nucleated RBC % Seg Neutrophils # Seg Neutrophils # Man Lymphocytes # (Manual) Monocytes # (Manual) Eosinophils # (Manual) PT INR APTT D-Dimer Heparin Anti-Xa Level ABG pH POC ABG pCO2 POC ABG pO2 ABG pO2 75.3 L ABG HCO3 34.3 H ABG O2 Saturation ABG Base Excess 8.7 H ABG Hemoglobin 10.2 L ABG Oxyhemoglobin ABG Sodium ABG Potassium ABG Chloride ABG Glucose Oxyhemoglobin 93.7 L Carboxyhemoglobin Sodium Potassium Chloride Carbon Dioxide BUN Creatinine Glucose POC Glucose 152 H 173 H Lactic Acid Calcium Magnesium Ferritin Total Bilirubin Direct Bilirubin AST ALT Alkaline Phosphatase Lactate Dehydrogenase C-Reactive Protein Total Protein Albumin Triglycerides Lipase Arterial Blood Glucose Arterial Blood Ionized Calcium Urine WBC (Auto) Coronavirus (PCR) SARS-CoV-2 IgG Ab Crossmatch 07/09/20 07/09/20 07/09/20 00:01 06:00 11:55 WBC RBC Hgb Hct MCV MCH MCHC RDW Lymph % (Auto) [place] % (Auto) Lymph # (Auto) [place] # (Auto) Baso # (Auto) Seg Neutrophils % Seg Neuts % (Manual) Lymphocytes % (Manual) Nucleated RBC % Seg Neutrophils # Seg Neutrophils # Man Lymphocytes # (Manual) Monocytes # (Manual) Eosinophils # (Manual) PT INR APTT D-Dimer Heparin Anti-Xa Level ABG pH POC ABG pCO2 POC ABG pO2 ABG pO2 ABG HCO3 ABG O2 Saturation ABG Base Excess ABG Hemoglobin ABG Oxyhemoglobin ABG Sodium ABG Potassium ABG Chloride ABG Glucose Oxyhemoglobin Carboxyhemoglobin Sodium Potassium Chloride Carbon Dioxide BUN Creatinine Glucose POC Glucose 207 H 141 H 228 H Lactic Acid Calcium Magnesium Ferritin Total Bilirubin Direct Bilirubin AST ALT Alkaline Phosphatase Lactate Dehydrogenase C-Reactive Protein Total Protein Albumin Triglycerides Lipase Arterial Blood Glucose Arterial Blood Ionized Calcium Urine WBC (Auto) Coronavirus (PCR) SARS-CoV-2 IgG Ab Crossmatch 07/09/20 07/09/20 07/09/20 16:47 23:53 Unknown WBC RBC Hgb Hct MCV MCH MCHC RDW Lymph % (Auto) [place] % (Auto) Lymph # (Auto) [place] # (Auto) Baso # (Auto) Seg Neutrophils % Seg Neuts % (Manual) Lymphocytes % (Manual) Nucleated RBC % Seg Neutrophils # Seg Neutrophils # Man Lymphocytes # (Manual) Monocytes # (Manual) Eosinophils # (Manual) PT INR APTT D-Dimer Heparin Anti-Xa Level ABG pH POC ABG pCO2 POC ABG pO2 ABG pO2 ABG HCO3 ABG O2 Saturation ABG Base Excess ABG Hemoglobin ABG Oxyhemoglobin ABG Sodium ABG Potassium ABG Chloride ABG Glucose Oxyhemoglobin Carboxyhemoglobin Sodium 132 L Potassium Chloride 92.7 L Carbon Dioxide 35 H BUN Creatinine 0.2 L Glucose 234 H POC Glucose 136 H 219 H Lactic Acid Calcium Magnesium Ferritin Total Bilirubin Direct Bilirubin AST ALT Alkaline Phosphatase Lactate Dehydrogenase C-Reactive Protein Total Protein Albumin Triglycerides Lipase Arterial Blood Glucose Arterial Blood Ionized Calcium Urine WBC (Auto) Coronavirus (PCR) SARS-CoV-2 IgG Ab Crossmatch 07/10/20 07/10/20 07/10/20 05:20 12:05 18:38 WBC RBC Hgb Hct MCV MCH MCHC RDW Lymph % (Auto) [place] % (Auto) Lymph # (Auto) [place] # (Auto) Baso # (Auto) Seg Neutrophils % Seg Neuts % (Manual) Lymphocytes % (Manual) Nucleated RBC % Seg Neutrophils # Seg Neutrophils # Man Lymphocytes # (Manual) Monocytes # (Manual) Eosinophils # (Manual) PT INR APTT D-Dimer Heparin Anti-Xa Level ABG pH POC ABG pCO2 POC ABG pO2 ABG pO2 ABG HCO3 ABG O2 Saturation ABG Base Excess ABG Hemoglobin ABG Oxyhemoglobin ABG Sodium ABG Potassium ABG Chloride ABG Glucose Oxyhemoglobin Carboxyhemoglobin Sodium Potassium Chloride Carbon Dioxide BUN Creatinine Glucose POC Glucose 221 H 174 H 152 H Lactic Acid Calcium Magnesium Ferritin Total Bilirubin Direct Bilirubin AST ALT Alkaline Phosphatase Lactate Dehydrogenase C-Reactive Protein Total Protein Albumin Triglycerides Lipase Arterial Blood Glucose Arterial Blood Ionized Calcium Urine WBC (Auto) Coronavirus (PCR) SARS-CoV-2 IgG Ab Crossmatch 07/11/20 07/11/20 07/11/20 00:16 05:42 08:13 WBC 11.9 H RBC 3.13 L Hgb 10.2 L Hct 31.2 L MCV 100 H MCH 33 H MCHC RDW 16.4 H Lymph % (Auto) [place] % (Auto) 9.3 H Lymph # (Auto) [place] # (Auto) 1.1 H Baso # (Auto) Seg Neutrophils % 72.7 H Seg Neuts % (Manual) Lymphocytes % (Manual) Nucleated RBC % Seg Neutrophils # 8.7 H Seg Neutrophils # Man Lymphocytes # (Manual) Monocytes # (Manual) Eosinophils # (Manual) PT INR APTT D-Dimer Heparin Anti-Xa Level ABG pH POC ABG pCO2 POC ABG pO2 ABG pO2 ABG HCO3 ABG O2 Saturation ABG Base Excess ABG Hemoglobin ABG Oxyhemoglobin ABG Sodium ABG Potassium ABG Chloride ABG Glucose Oxyhemoglobin Carboxyhemoglobin Sodium Potassium Chloride Carbon Dioxide BUN Creatinine Glucose POC Glucose 170 H 186 H Lactic Acid Calcium Magnesium Ferritin Total Bilirubin Direct Bilirubin AST ALT Alkaline Phosphatase Lactate Dehydrogenase C-Reactive Protein Total Protein Albumin Triglycerides Lipase Arterial Blood Glucose Arterial Blood Ionized Calcium Urine WBC (Auto) Coronavirus (PCR) SARS-CoV-2 IgG Ab Crossmatch 07/11/20 07/11/20 07/11/20 08:13 11:35 18:07 WBC RBC Hgb Hct MCV MCH MCHC RDW Lymph % (Auto) [place] % (Auto) Lymph # (Auto) [place] # (Auto) Baso # (Auto) Seg Neutrophils % Seg Neuts % (Manual) Lymphocytes % (Manual) Nucleated RBC % Seg Neutrophils # Seg Neutrophils # Man Lymphocytes # (Manual) Monocytes # (Manual) Eosinophils # (Manual) PT INR APTT D-Dimer Heparin Anti-Xa Level ABG pH POC ABG pCO2 POC ABG pO2 ABG pO2 ABG HCO3 ABG O2 Saturation ABG Base Excess ABG Hemoglobin ABG Oxyhemoglobin ABG Sodium ABG Potassium ABG Chloride ABG Glucose Oxyhemoglobin Carboxyhemoglobin Sodium 135 L Potassium Chloride 92.8 L Carbon Dioxide 38 H BUN Creatinine 0.2 L Glucose 132 H POC Glucose 129 H 156 H Lactic Acid Calcium Magnesium Ferritin Total Bilirubin Direct Bilirubin AST ALT Alkaline Phosphatase Lactate Dehydrogenase C-Reactive Protein Total Protein Albumin Triglycerides Lipase Arterial Blood Glucose Arterial Blood Ionized Calcium Urine WBC (Auto) Coronavirus (PCR) SARS-CoV-2 IgG Ab Crossmatch 07/11/20 07/11/20 07/12/20 18:36 23:18 05:28 WBC RBC Hgb Hct MCV MCH MCHC RDW Lymph % (Auto) [place] % (Auto) Lymph # (Auto) [place] # (Auto) Baso # (Auto) Seg Neutrophils % Seg Neuts % (Manual) Lymphocytes % (Manual) Nucleated RBC % Seg Neutrophils # Seg Neutrophils # Man Lymphocytes # (Manual) Monocytes # (Manual) Eosinophils # (Manual) PT INR APTT D-Dimer Heparin Anti-Xa Level ABG pH POC ABG pCO2 POC ABG pO2 70.9 L ABG pO2 ABG HCO3 ABG O2 Saturation ABG Base Excess ABG Hemoglobin 10.8 L ABG Oxyhemoglobin 92.5 L ABG Sodium 131.8 L ABG Potassium 3.2 L ABG Chloride 91.0 L ABG Glucose 181 H Oxyhemoglobin Carboxyhemoglobin Sodium Potassium Chloride Carbon Dioxide BUN Creatinine Glucose POC Glucose 189 H 190 H Lactic Acid Calcium Magnesium Ferritin Total Bilirubin Direct Bilirubin AST ALT Alkaline Phosphatase Lactate Dehydrogenase C-Reactive Protein Total Protein Albumin Triglycerides Lipase Arterial Blood Glucose 181 H Arterial Blood Ionized Calcium Urine WBC (Auto) Coronavirus (PCR) SARS-CoV-2 IgG Ab Crossmatch 07/12/20 07/12/20 07/12/20 11:33 17:45 23:59 WBC RBC Hgb Hct MCV MCH MCHC RDW Lymph % (Auto) [place] % (Auto) Lymph # (Auto) [place] # (Auto) Baso # (Auto) Seg Neutrophils % Seg Neuts % (Manual) Lymphocytes % (Manual) Nucleated RBC % Seg Neutrophils # Seg Neutrophils # Man Lymphocytes # (Manual) Monocytes # (Manual) Eosinophils # (Manual) PT INR APTT D-Dimer Heparin Anti-Xa Level ABG pH POC ABG pCO2 POC ABG pO2 ABG pO2 ABG HCO3 ABG O2 Saturation ABG Base Excess ABG Hemoglobin ABG Oxyhemoglobin ABG Sodium ABG Potassium ABG Chloride ABG Glucose Oxyhemoglobin Carboxyhemoglobin Sodium Potassium Chloride Carbon Dioxide BUN Creatinine Glucose POC Glucose 151 H 211 H 169 H Lactic Acid Calcium Magnesium Ferritin Total Bilirubin Direct Bilirubin AST ALT Alkaline Phosphatase Lactate Dehydrogenase C-Reactive Protein Total Protein Albumin Triglycerides Lipase Arterial Blood Glucose Arterial Blood Ionized Calcium Urine WBC (Auto) Coronavirus (PCR) SARS-CoV-2 IgG Ab Crossmatch 07/13/20 07/13/20 07/13/20 05:44 08:31 08:31 WBC 21.3 H RBC 2.92 L Hgb 9.7 L Hct 28.7 L MCV 98 H MCH 33 H MCHC RDW 16.8 H Lymph % (Auto) [place] % (Auto) Lymph # (Auto) [place] # (Auto) Baso # (Auto) Seg Neutrophils % Seg Neuts % (Manual) 96.0 H Lymphocytes % (Manual) 2.0 L Nucleated RBC % Seg Neutrophils # Seg Neutrophils # Man 20.4 H Lymphocytes # (Manual) 0.4 L Monocytes # (Manual) Eosinophils # (Manual) PT INR APTT D-Dimer Heparin Anti-Xa Level ABG pH POC ABG pCO2 POC ABG pO2 ABG pO2 ABG HCO3 ABG O2 Saturation ABG Base Excess ABG Hemoglobin ABG Oxyhemoglobin ABG Sodium ABG Potassium ABG Chloride ABG Glucose Oxyhemoglobin Carboxyhemoglobin Sodium Potassium 2.9 L* D Chloride 94.4 L Carbon Dioxide 37 H BUN Creatinine 0.2 L Glucose 166 H POC Glucose 122 H Lactic Acid Calcium Magnesium Ferritin Total Bilirubin Direct Bilirubin AST ALT Alkaline Phosphatase Lactate Dehydrogenase C-Reactive Protein Total Protein Albumin Triglycerides Lipase Arterial Blood Glucose Arterial Blood Ionized Calcium Urine WBC (Auto) Coronavirus (PCR) SARS-CoV-2 IgG Ab Crossmatch 07/13/20 07/13/20 07/13/20 11:54 13:52 17:40 WBC RBC Hgb Hct MCV MCH MCHC RDW Lymph % (Auto) [place] % (Auto) Lymph # (Auto) [place] # (Auto) Baso # (Auto) Seg Neutrophils % Seg Neuts % (Manual) Lymphocytes % (Manual) Nucleated RBC % Seg Neutrophils # Seg Neutrophils # Man Lymphocytes # (Manual) Monocytes # (Manual) Eosinophils # (Manual) PT INR APTT D-Dimer Heparin Anti-Xa Level ABG pH 7.477 H POC ABG pCO2 54.4 H POC ABG pO2 126.8 H ABG pO2 ABG HCO3 ABG O2 Saturation ABG Base Excess ABG Hemoglobin 11.5 L ABG Oxyhemoglobin ABG Sodium ABG Potassium 3.2 L ABG Chloride 92.0 L ABG Glucose 169 H Oxyhemoglobin Carboxyhemoglobin Sodium Potassium Chloride Carbon Dioxide BUN Creatinine Glucose POC Glucose 132 H 128 H Lactic Acid Calcium Magnesium Ferritin Total Bilirubin Direct Bilirubin AST ALT Alkaline Phosphatase Lactate Dehydrogenase C-Reactive Protein Total Protein Albumin Triglycerides Lipase Arterial Blood Glucose 169 H Arterial Blood Ionized Calcium Urine WBC (Auto) Coronavirus (PCR) SARS-CoV-2 IgG Ab Crossmatch 07/14/20 07/14/20 07/15/20 07:49 17:09 05:27 WBC RBC Hgb Hct MCV MCH MCHC RDW Lymph % (Auto) [place] % (Auto) Lymph # (Auto) [place] # (Auto) Baso # (Auto) Seg Neutrophils % Seg Neuts % (Manual) Lymphocytes % (Manual) Nucleated RBC % Seg Neutrophils # Seg Neutrophils # Man Lymphocytes # (Manual) Monocytes # (Manual) Eosinophils # (Manual) PT INR APTT D-Dimer Heparin Anti-Xa Level ABG pH POC ABG pCO2 POC ABG pO2 ABG pO2 ABG HCO3 ABG O2 Saturation ABG Base Excess ABG Hemoglobin ABG Oxyhemoglobin ABG Sodium ABG Potassium ABG Chloride ABG Glucose Oxyhemoglobin Carboxyhemoglobin Sodium Potassium 2.7 L* Chloride 94.0 L Carbon Dioxide 37 H BUN Creatinine 0.3 L Glucose 110 H POC Glucose 152 H 61 L Lactic Acid Calcium Magnesium Ferritin Total Bilirubin Direct Bilirubin AST ALT Alkaline Phosphatase Lactate Dehydrogenase C-Reactive Protein Total Protein Albumin Triglycerides Lipase Arterial Blood Glucose Arterial Blood Ionized Calcium Urine WBC (Auto) Coronavirus (PCR) SARS-CoV-2 IgG Ab Crossmatch 07/15/20 07/15/20 07/15/20 05:31 11:49 17:18 WBC RBC Hgb Hct MCV MCH MCHC RDW Lymph % (Auto) [place] % (Auto) Lymph # (Auto) [place] # (Auto) Baso # (Auto) Seg Neutrophils % Seg Neuts % (Manual) Lymphocytes % (Manual) Nucleated RBC % Seg Neutrophils # Seg Neutrophils # Man Lymphocytes # (Manual) Monocytes # (Manual) Eosinophils # (Manual) PT INR APTT D-Dimer Heparin Anti-Xa Level ABG pH POC ABG pCO2 POC ABG pO2 ABG pO2 ABG HCO3 ABG O2 Saturation ABG Base Excess ABG Hemoglobin ABG Oxyhemoglobin ABG Sodium ABG Potassium ABG Chloride ABG Glucose Oxyhemoglobin Carboxyhemoglobin Sodium Potassium 3.2 L Chloride 91.2 L Carbon Dioxide 33 H BUN Creatinine 0.3 L Glucose 139 H POC Glucose 148 H 196 H Lactic Acid Calcium Magnesium Ferritin Total Bilirubin Direct Bilirubin AST ALT Alkaline Phosphatase Lactate Dehydrogenase C-Reactive Protein Total Protein Albumin Triglycerides Lipase Arterial Blood Glucose Arterial Blood Ionized Calcium Urine WBC (Auto) Coronavirus (PCR) SARS-CoV-2 IgG Ab Crossmatch 07/15/20 07/16/20 07/16/20 23:08 05:18 05:19 WBC 11.3 H RBC 3.10 L Hgb 10.0 L Hct 30.3 L MCV 98 H MCH MCHC RDW 16.3 H Lymph % (Auto) [place] % (Auto) Lymph # (Auto) [place] # (Auto) Baso # (Auto) Seg Neutrophils % Seg Neuts % (Manual) Lymphocytes % (Manual) Nucleated RBC % Seg Neutrophils # Seg Neutrophils # Man Lymphocytes # (Manual) Monocytes # (Manual) Eosinophils # (Manual) PT INR APTT D-Dimer Heparin Anti-Xa Level ABG pH POC ABG pCO2 POC ABG pO2 ABG pO2 ABG HCO3 ABG O2 Saturation ABG Base Excess ABG Hemoglobin ABG Oxyhemoglobin ABG Sodium ABG Potassium ABG Chloride ABG Glucose Oxyhemoglobin Carboxyhemoglobin Sodium Potassium Chloride Carbon Dioxide BUN Creatinine Glucose POC Glucose 131 H 160 H Lactic Acid Calcium Magnesium Ferritin Total Bilirubin Direct Bilirubin AST ALT Alkaline Phosphatase Lactate Dehydrogenase C-Reactive Protein Total Protein Albumin Triglycerides Lipase Arterial Blood Glucose Arterial Blood Ionized Calcium Urine WBC (Auto) Coronavirus (PCR) SARS-CoV-2 IgG Ab Crossmatch 07/16/20 07/16/20 05:19 11:45 WBC RBC Hgb Hct MCV MCH MCHC RDW Lymph % (Auto) [place] % (Auto) Lymph # (Auto) [place] # (Auto) Baso # (Auto) Seg Neutrophils % Seg Neuts % (Manual) Lymphocytes % (Manual) Nucleated RBC % Seg Neutrophils # Seg Neutrophils # Man Lymphocytes # (Manual) Monocytes # (Manual) Eosinophils # (Manual) PT INR APTT D-Dimer Heparin Anti-Xa Level ABG pH POC ABG pCO2 POC ABG pO2 ABG pO2 ABG HCO3 ABG O2 Saturation ABG Base Excess ABG Hemoglobin ABG Oxyhemoglobin ABG Sodium ABG Potassium ABG Chloride ABG Glucose Oxyhemoglobin Carboxyhemoglobin Sodium 132 L Potassium 3.4 L Chloride 89.9 L Carbon Dioxide 39 H BUN Creatinine 0.3 L Glucose 174 H POC Glucose 169 H Lactic Acid Calcium Magnesium Ferritin Total Bilirubin Direct Bilirubin AST ALT Alkaline Phosphatase Lactate Dehydrogenase C-Reactive Protein Total Protein Albumin Triglycerides Lipase Arterial Blood Glucose Arterial Blood Ionized Calcium Urine WBC (Auto) Coronavirus (PCR) SARS-CoV-2 IgG Ab Crossmatch Chest x-ray: image reviewed (no gross pneumothorax; overpenetrated film) Allied health notes reviewed: nursing
--- NOTE | 2020-07-16 13:59 | Progress Note ---
Assessment and Plan Assessment and plan: - Acute hypoxemic respiratory failure; Patient intubated and on vent support --Severe COVID-19 bilateral pneumonia Coronavirus protocol: IV steroid therapy, completed remdesivir, isolation precautions, contact precautions, prone positioning while in bed, pulmonary toilet. ID following SARS CoV-2 IgG positive patient is NOT a candidate for COVID convalescent plasma --Severe sepsis/septic shock, due to COVID 19 PNA cont pressors as needed -- Acute kidney injury (SEN) , likely vasomotor nephropathy Resolved, IV fluids, avoid nephrotoxins --Acute on chronic anemia Guaiac test positive GI evaluation PPIs Continue to monitor -- Elevated liver function tests Suspected secondary to alcoholic liver disease. Supportive care, alcohol cessation, patient counseled. --Colonic distention GI evaluation -recommend stool softeners Serial abdominal x-rays Monitor electrolytes and replete -- DVT prophylaxis On therapeutic Lovenox 50 YO Male with Obesity, ETOH Dependence presents to ED for evaluation for shortness of breath, generalized weakness, fatigue, malaise, body aches, decreased exercise tolerance over the past 5 days. EMS was notified and upon arrival the patient was found to be in distress with a pulse oximetry of 76% on room air as well as fever to 103 F. In the ER chest x-ray and was found to have bilateral pneumonia. Patient admitted to medical floor and initiated on pneumonia protocol as well as COVID-19 protocol. Patient reports being diagnosed with coronavirus 2 days ago before admission. 06/16/2020. Patient currently on mechanical ventilation with AC mode rate 30, tidal volume 500, FiO2 70% and PEEP of 16. Continue anticoagulation with Lovenox 110 milligrams subcu every 12 hours. Wean sedation of fentanyl/Versed as needed. Currently with IV steroids of Solu-Medrol 40 mg IV every 12 hours. Patient will likely need tracheostomy per pulmonary recommendations. Continue pressors to maintain MAP > 65. 06/17/2020. Patient currently on mechanical ventilation with AC mode rate 30, tidal volume 500, FiO2 65% and PEEP of 16. Continue anticoagulation with Lovenox 110 milligrams subcu every 12 hours. Wean sedation of fentanyl/Versed as needed. Currently with IV steroids of Solu-Medrol 40 mg IV every 12 hours. Patient will likely need tracheostomy per pulmonary recommendations. 06/18/2020. Patient currently on mechanical ventilation with AC mode rate 30, tidal volume 500, FiO2 70% and PEEP of 16. Continue Lovenox for anticoagulation and fentanyl/Versed for sedation. Wean steroids per pulmonary. CIWA protocol initiated for history of EtOH dependence 06/19/2020. Patient currently on mechanical ventilation with AC mode rate 30, tidal volume 500, FiO2 60% and PEEP of 16. Wean FiO2 as tolerated per protocol. Continue Lovenox for anticoagulation and fentanyl/Versed for sedation. Wean steroids per pulmonary. CIWA protocol initiated for history of EtOH dependence 06/20/2020. Patient currently on mechanical ventilation with AC mode rate 30, tidal volume 500, FiO2 60% and PEEP of 16. Wean FiO2 as tolerated, SBT per protocol. Continue Lovenox for anticoagulation and fentanyl/Versed for sedation. Wean steroids per pulmonary. Continue pressors to maintain MAP > 65 mmHg. Patient remains on ETT. Consider tracheostomy placement once oxygenation is better per pulmonary. CIWA protocol initiated for history of EtOH dependence. 06/21/2020. Patient with a small apical pneumothorax discovered yesterday. General surgery consulted and consider placing chest tube. Follow-up serial chest x-ray patient currently on mechanical ventilation with AC mode rate 30, tidal volume 500, FiO2 60% and PEEP of 16. Wean FiO2 as tolerated, SBT per protocol. Continue Lovenox for anticoagulation and fentanyl/Versed for sedation. Wean steroids per pulmonary. Continue pressors to maintain MAP > 65 mmHg. Patient remains on ETT. Consider tracheostomy placement once oxygenation is better per pulmonary. CIWA protocol initiated for history of EtOH dependence. 06/22. Status post right chest tube placement yesterday. Remains mechanically ventilated on pressors. Examination today shows slightly distended abdomen. KUB ordered. Awaiting stool guaiac. Plan to get a GI evaluation. 06/23. Has colonic distention on the x-ray. Discussed with GI-advised stool softeners for now and close monitoring. No indication for colonic decompression at this time. Guaiac test is positive. No emergent indication for endoscopy at this point as per GI. Continue to monitor hemoglobin. 06/24. Remains intubated. On pressors. GI following for positive guaiac stool a nd anemia, and colonic distention. 06/25. Repeat abdominal xray ordered. Remains on mechanical ventilation. 06/26. Abdominal xray - resolved colonic distension. Mechanically ventilated. 06/27. Plan for trach and PEG. 06/28: Awaiting trach and Peg. S\ome Bm REPORTED, will continue to monitor 06/29: Resume care, patient remains on ventilator support, waiting on trach and PEG placement. BM reported by the RN, continue to monitor. 06/30: Unable to wean off from vent, patient will need trach and PEG. Continue supportive care, tolerating tube feed. Monitor CBC and BMP 07/01: Continue mechanical ventilation, tube feeding as tolerated. Sedation as needed per mechanical ventilation protocol. Waiting on trach and PEG placement. 07/02: Continue current management, tube feeding, monitor CBC and BMP. Need trach and PEG-waiting on scheduling. Pulmonary critical care following. 07/03: wean off vent as tolerated. follow clinically. need trach and PEG 07/04: unable to wean. CT head ordered to assess for any changes but too unstable to do the test. need trach and PEG. 07/05: plan for trach/peg - GS following. off pressor - on midodrine. renal function stable. intubated, but alert and can follow minor commend. discussed with daughter by phone. 07/06/2020; Dr. Márquez discussed with patient's daughter about trach but the daughter needs time to think about it. Patient was intubated and alert, FiO2 40%. 07/07/2020; patient was intubated and alert, FiO2 40%. Patient was diaphoretic, tachycardic, and EKG was done which was abnormal for me. I called cerner analyst Dr Louis saw the EKG and said it is normal EKG, and the findings are abnormal. 07/08/2020; no significant change, patient is intubated and alert. 1/2: Patient continues on current management. Pulmonary recommending trach and PEG awaiting patient's decision on this. Will check intermittent labs 3: Ordered CT still pending. Patient was agitated at night. Appears to have calmed down. Will repeat labs today. 07/12: Continue supportive care, awaiting CPAP trial. discussed with pulmonary. Obtain labs today. Trach and Peg planned 07/13: Continues to current management, PLAN FOR Trach and PEG on Sunday if patient is not able to liberated from the ventilator, Continue to monitor Fever curve and repeat Sepsis work up if persistent fever 07/14: Now extubated, continue to work up. 07/15: Clinical stable for transfer to [facility], still with fever and now showing bactermia. Continue Abx per ID. monitor fever 07/16: Continue supportive care. MONITOR FEVER CURVE, Adjust antibiotics as todd rated The high probability of a clinically significant, sudden or life threatening deterioration of the [respiratory] system(s) required my full and direct attention, intervention and personal management. The aggregate critical care time was [31] minutes. This time is in addition to time spent performing reported procedures but includes the following: [x] Data Review and interpretation [x] Patient assessment and monitoring of vital signs [x] Documentation [x] Medication orders and management History Interval history: Pt seen and examined. Doing well post extubation. Hospitalist Physical - Physical exam Narrative exam: VITAL SIGNS: Reviewed. Exam limited due to global pandemic PPE GENERAL: AWAKE, FOLLOWS COMMAND HEAD: No signs of head trauma. MOUTH: Oropharynx is normal. NECK: No adenopathy, no JVD. CHEST: Chest with diminished breath sounds bilaterally. No wheezes, rales, or rhonchi. CARDIAC: normal S1 and S2, without murmurs, gallops, or rubs. ABDOMEN: Slightly distended, bowel sounds hypoactive NEUROLOGICAL EXAM: DROWSY BUT AWAKE AND FOLLOWING SOME COMMANDS BUT CONFUSION PERSIST - Constitutional Vitals: Temp Pulse Resp BP Pulse Ox 99.1 F 116 H 35 H 108/60 78 L 07/16/20 12:00 07/16/20 11:00 07/16/20 11:30 07/16/20 11:30 07/16/20 11:30 General appearance: Present: no acute distress, mild distress, well-nourished HEART Score - HEART Score Troponin: Troponin T 0.015 ng/mL (0.00-0.029) 07/07/20 10:00 Results - Labs CBC & Chem 7: 07/16/20 05:19 07/16/20 05:19 Labs: Laboratory Last Values WBC 11.3 K/mm3 (4.5-11.0) H 07/16/20 05:19 RBC 3.10 M/mm3 (3.65-5.03) L 07/16/20 05:19 Hgb 10.0 gm/dl (11.8-15.2) L 07/16/20 05:19 Hct 30.3 % (35.5-45.6) L 07/16/20 05:19 MCV 98 fl (84-94) H 07/16/20 05:19 MCH 32 pg (28-32) 07/16/20 05:19 MCHC 33 % (32-34) 07/16/20 05:19 RDW 16.3 % (13.2-15.2) H 07/16/20 05:19 Plt Count 284 K/mm3 (140-440) 07/16/20 05:19 Lymph % (Auto) 17.5 % (13.4-35.0) 07/11/20 08:13 [place] % (Auto) 9.3 % (0.0-7.3) H 07/11/20 08:13 Eos % (Auto) 0.3 % (0.0-4.3) 07/11/20 08:13 Baso % (Auto) 0.2 % (0.0-1.8) 07/11/20 08:13 Lymph # (Auto) 2.1 K/mm3 (1.2-5.4) 07/11/20 08:13 [place] # (Auto) 1.1 K/mm3 (0.0-0.8) H 07/11/20 08:13 Eos # (Auto) 0.0 K/mm3 (0.0-0.4) 07/11/20 08:13 Baso # (Auto) 0.0 K/mm3 (0.0-0.1) 07/11/20 08:13 Add Manual Diff Complete 07/13/20 08:31 Total Counted 100 07/13/20 08:31 Seg Neutrophils % Roll Carrier 07/13/20 08:31 Seg Neuts % (Manual) 96.0 % (40.0-70.0) H 07/13/20 08:31 Band Neutrophils % 0 % 07/13/20 08:31 Lymphocytes % (Manual) 2.0 % (13.4-35.0) L 07/13/20 08:31 Reactive Lymphs % (Man) 0 % 07/13/20 08:31 Monocytes % (Manual) 2.0 % (0.0-7.3) 07/13/20 08:31 Eosinophils % (Manual) 0 % (0.0-4.3) 07/13/20 08:31 Basophils % (Manual) 0 % (0.0-1.8) 07/13/20 08:31 Metamyelocytes % 0 % 07/13/20 08:31 Myelocytes % 0 % 07/13/20 08:31 Promyelocytes % 0 % 07/13/20 08:31 Blast Cells % 0 % 07/13/20 08:31 Nucleated RBC % Not Reportable 07/13/20 08:31 Seg Neutrophils # 8.7 K/mm3 (1.8-7.7) H 07/11/20 08:13 Seg Neutrophils # Man 20.4 K/mm3 (1.8-7.7) H 07/13/20 08:31 Band Neutrophils # 0.0 K/mm3 07/13/20 08:31 Lymphocytes # (Manual) 0.4 K/mm3 (1.2-5.4) L 07/13/20 08:31 Abs React Lymphs (Man) 0.0 K/mm3 07/13/20 08:31 Monocytes # (Manual) 0.4 K/mm3 (0.0-0.8) 07/13/20 08:31 Eosinophils # (Manual) 0.0 K/mm3 (0.0-0.4) 07/13/20 08:31 Basophils # (Manual) 0.0 K/mm3 (0.0-0.1) 07/13/20 08:31 Metamyelocytes # 0.0 K/mm3 07/13/20 08:31 Myelocytes # 0.0 K/mm3 07/13/20 08:31 Promyelocytes # 0.0 K/mm3 07/13/20 08:31 Blast Cells # 0.0 K/mm3 07/13/20 08:31 WBC Morphology Not Reportable 07/13/20 08:31 Hypersegmented Neuts Not Reportable 07/13/20 08:31 Hyposegmented Neuts Not Reportable 07/13/20 08:31 Hypogranular Neuts Not Reportable 07/13/20 08:31 Smudge Cells Not Reportable 07/13/20 08:31 Toxic Granulation Not Reportable 07/13/20 08:31 Toxic Vacuolation Not Reportable 07/13/20 08:31 Dohle Bodies Not Reportable 07/13/20 08:31 Pelger-Huet Anomaly Not Reportable 07/13/20 08:31 Jason Rods Not Reportable 07/13/20 08:31 Platelet Estimate Consistent w auto 07/13/20 08:31 Clumped Platelets Not Reportable 07/13/20 08:31 Plt Clumps, EDTA Not Reportable 07/13/20 08:31 Large Platelets Not Reportable 07/13/20 08:31 Giant Platelets Not Reportable 07/13/20 08:31 Platelet Satelliting Not Reportable 07/13/20 08:31 Plt Morphology Comment Not Reportable 07/13/20 08:31 RBC Morphology Not Reportable 07/13/20 08:31 Dimorphic RBCs Not Reportable 07/13/20 08:31 Polychromasia Not Reportable 07/13/20 08:31 Hypochromasia Not Reportable 07/13/20 08:31 Poikilocytosis Not Reportable 07/13/20 08:31 Anisocytosis Not Reportable 07/13/20 08:31 Microcytosis Not Reportable 07/13/20 08:31 Macrocytosis Not Reportable 07/13/20 08:31 Spherocytes Not Reportable 07/13/20 08:31 Pappenheimer Bodies Not Reportable 07/13/20 08:31 Sickle Cells Not Reportable 07/13/20 08:31 Target Cells Not Reportable 07/13/20 08:31 Tear Drop Cells Not Reportable 07/13/20 08:31 Ovalocytes Not Reportable 07/13/20 08:31 Stomatocytes Few 07/13/20 08:31 Helmet Cells Not Reportable 07/13/20 08:31 Sinclair-[place] Bodies Not Reportable 07/13/20 08:31 Mac[place]el Rings Not Reportable 07/13/20 08:31 Izabella Cells Not Reportable 07/13/20 08:31 Bite Cells Not Reportable 07/13/20 08:31 Crenated Cell Not Reportable 07/13/20 08:31 Elliptocytes Not Reportable 07/13/20 08:31 Acanthocytes (Spur) Not Reportable 07/13/20 08:31 Rouleaux Not Reportable 07/13/20 08:31 Hemoglobin C Crystals Not Reportable 07/13/20 08:31 Schistocytes Not Reportable 07/13/20 08:31 Malaria parasites Not Reportable 07/13/20 08:31 Josue Bodies Not Reportable 07/13/20 08:31 Hem Pathologist Commnt No 07/13/20 08:31 PT 11.8 Sec. (12.2-14.9) L 06/22/20 14:29 INR 0.88 (0.87-1.13) 06/22/20 14:29 APTT 23.5 Sec. (24.2-36.6) L 06/22/20 14:29 D-Dimer 1887.82 ng/mlDDU (0-234) H 05/20/20 08:16 Heparin Anti-Xa Level 0.37 U.I./ml (0.3-0.7) 07/02/20 16:08 ABG pH 7.477 (7.320-7.450) H 07/13/20 13:52 POC ABG pCO2 54.4 mmHg (32.0-48.0) H 07/13/20 13:52 ABG pCO2 53.1 mm Hg 07/08/20 Unknown POC ABG pO2 126.8 mmHg (83-108) H 07/13/20 13:52 ABG pO2 75.3 mm Hg (80.0-90.0) L 07/08/20 Unknown POC ABG HCO3 39.3 07/13/20 13:52 ABG HCO3 34.3 mmol/L (20.0-26.0) H 07/08/20 Unknown ABG O2 Saturation 96.5 % (95.0-99.0) 07/08/20 Unknown ABG O2 Content 13.5 (0.0-44) 07/08/20 Unknown POC ABG Base Excess 13.8 07/13/20 13:52 ABG Base Excess 8.7 mmol/L (-2.0-3.0) H 07/08/20 Unknown ABG Hemoglobin 11.5 (12.0-17.5) L 07/13/20 13:52 ABG Oxyhemoglobin 97.7 (94-98) 07/13/20 13:52 ABG Carboxyhemoglobin 2.4 % (0.0-5.0) 07/08/20 Unknown ABG Methemoglobin 0 (0.0-1.5) 07/13/20 13:52 ABG Sodium 136.2 mmol/L (136.0-145.0) 07/13/20 13:52 ABG Potassium 3.2 mmol/L (3.40-4.50) L 07/13/20 13:52 ABG Chloride 92.0 mmol/L (98-107) L 07/13/20 13:52 ABG Glucose 169 mg/dL (65-95) H 07/13/20 13:52 Oxyhemoglobin 93.7 % (95.0-99.0) L 07/08/20 Unknown Carboxyhemoglobin 1.2 (0.5-1.5) 07/13/20 13:52 FiO2 45 07/13/20 13:52 Sodium 132 mmol/L (137-145) L 07/16/20 05:19 Potassium 3.4 mmol/L (3.6-5.0) L 07/16/20 05:19 Chloride 89.9 mmol/L (98-107) L 07/16/20 05:19 Carbon Dioxide 39 mmol/L (22-30) H 07/16/20 05:19 Anion Gap 7 mmol/L 07/16/20 05:19 BUN 10 mg/dL (9-20) 07/16/20 05:19 Creatinine 0.3 mg/dL (0.8-1.3) L 07/16/20 05:19 Estimated GFR > 60 ml/min 07/16/20 05:19 BUN/Creatinine Ratio 33 % 07/16/20 05:19 Glucose 174 mg/dL (75-100) H 07/16/20 05:19 POC Glucose 169 mg/dL (70-105) H 07/16/20 11:45 Lactic Acid 0.80 mmol/L (0.7-2.0) 07/13/20 15:45 Calcium 9.3 mg/dL (8.4-10.2) 07/16/20 05:19 Phosphorus 3.10 mg/dL (2.5-4.5) 06/15/20 04:00 Magnesium 1.80 mg/dL (1.7-2.3) 07/14/20 07:49 Ferritin 1496.0 ng/mL (30.0-300.0) H 06/14/20 11:50 Total Bilirubin 0.60 mg/dL (0.1-1.2) 06/30/20 07:00 Direct Bilirubin 0.6 mg/dL (0-0.2) H 05/11/20 07:30 Indirect Bilirubin 0.9 mg/dL 05/11/20 07:30 AST 21 units/L (5-40) 06/30/20 07:00 ALT 30 units/L (7-56) 06/30/20 07:00 Alkaline Phosphatase 81 units/L (35-129) 06/30/20 07:00 Lactate Dehydrogenase 705 units/L (91-180) H 05/20/20 08:16 Troponin T 0.015 ng/mL (0.00-0.029) 07/07/20 10:00 C-Reactive Protein 3.10 mg/dL (0.00-1.30) H 05/20/20 08:16 Total Protein 6.3 g/dL (6.3-8.2) 06/30/20 07:00 Albumin 2.8 g/dL (3.9-5) L 06/30/20 07:00 Albumin/Globulin Ratio 0.8 % 06/30/20 07:00 Triglycerides 452 mg/dL (2-149) H 06/30/20 07:00 Lipase 86 units/L (13-60) H 06/29/20 09:36 Procalcitonin 2.15 ng/mL (<0.15) 07/15/20 05:31 Arterial Blood Glucose 169 mg/dL (65-95) H 07/13/20 13:52 Arterial Blood Ionized Calcium 4.8 mg/dL (4.6-5.3) 07/13/20 13:52 Urine Color Fauzia (Yellow) 05/10/20 Unknown Urine Turbidity Clear (Clear) 05/10/20 Unknown Urine pH 5.0 (5.0-7.0) 05/10/20 Unknown Ur Specific [place] 1.019 (1.003-1.030) 05/10/20 Unknown Urine Protein 100 mg/dl mg/dL (Negative) 05/10/20 Unknown Urine Glucose (UA) Neg mg/dL (Negative) 05/10/20 Unknown Urine Ketones Neg mg/dL (Negative) 05/10/20 Unknown Urine Blood Lg (Negative) 05/10/20 Unknown Urine Nitrite Neg (Negative) 05/10/20 Unknown Urine Bilirubin Neg (Negative) 05/10/20 Unknown Urine Urobilinogen 2.0 mg/dL (<2.0) 05/10/20 Unknown Ur Leukocyte Esterase Neg (Negative) 05/10/20 Unknown Urine WBC (Auto) 11.0 /HPF (0.0-6.0) H 05/10/20 Unknown Urine RBC (Auto) 2.0 /HPF (0.0-6.0) 05/10/20 Unknown U Epithel Cells (Auto) 1.0 /HPF (0-13.0) 05/10/20 Unknown Urine Bacteria (Auto) 1+ /HPF (Negative) 05/10/20 Unknown Urine Mucus Few /HPF 05/10/20 Unknown Plasma/Serum Alcohol < 0.01 % (0-0.07) 05/09/20 14:20 Coronavirus (PCR) Negative (Negative) 06/30/20 10:28 Hepatitis A Ab Total Nonreactive (Nonreactive) 07/09/20 Unknown Hep B Core Total Ab Nonreactive (Nonreactive) 07/09/20 Unknown SARS-CoV-2 IgG Ab Reactive (NonReactive) A 05/11/20 07:30 Blood Type B POSITIVE 06/21/20 14:18 Antibody Screen Negative 06/21/20 14:18 Crossmatch See Detail 06/21/20 14:18 Microbiology: Microbiology 07/13/20 Unknown Peripheral/Venous Blood Culture - Preliminary Pseudomonas Species 07/13/20 Unknown Peripheral/Venous Blood Culture - Preliminary Pseudomonas Species - Diagnostic Impressions Diagnostic Impressions: Echocardiogram 05/20/20 13:02 Transthoracic Echocardiogram Indication: CHF BP: 97/73 Conclusions *The study quality is technically very difficult and limited. *The left ventricular chamber size, wall thickness and systolic function are within normal limits. There are no wall motion abnormalities observed. Ejection fraction is normal. *The estimated ejection fraction is 60-65%. *The pericardium appears normal. Findings Procedure Info: The study quality is technically difficult. Left Ventricle: The left ventricular chamber size, wall thickness and systolic function are within normal limits. There are no wall motion abnormalities observed. Ejection fraction is normal. The estimated ejection fraction is 60-65%. Abnormal left ventricular diastolic filling is observed, consistent with impaired relaxation. Left Atrium: The left atrium is normal in size with no visual thrombus identified. Right Ventricle: The right ventricle is not well visualized. Right Atrium: The right atrium is not well visualized. Aortic Valve: The aortic valve is trileaflet. The leaflets are thin with normal excursion. There is no aortic stenosis or regurgitation present. Mitral Valve: The mitral valve appears normal in structure and function. Tricuspid Valve: The tricuspid valve appears normal in structure and function. Unable to estimate the right ventricular systolic pressure. Pulmonic Valve: The pulmonic valve is not well visualized. There is no evidence of pulmonic regurgitation. There is no pulmonic stenosis. Pericardium: The pericardium appears normal. Pulmonary Artery: The main pulmonary artery is not well visualized. Venous: The inferior vena cava appears normal in size. Measurements Chambers 2D Name Value Normal Range IVSd (2D) 0.83 cm (0.6 - 1.1) LVPWd (2D) 0.83 cm (0.6 - 1.1) LVIDd (2D) 3.88 cm (3.7 - 5.6) LVIDs (2D) 2.46 cm (2 - 3.8) LV FS (2D) 36.52 % - EF Teichholz (2D) 66.97 % - Ao root diameter (2D) 3.47 cm (2 - 3.7) Volumes/Mass Name Value Normal Range LA ESV SP 4CH (A/L) 22.4 ml - LA ESV SP 2CH (A/L) 22.89 ml - LA ESV BP (A/L) 23.06 ml - LA ESV SP 4CH (MOD) 21.09 ml - LA ESV SP 2CH (MOD) 22.44 ml - Diastolic/Systolic Function Name Value Normal Range MV E-wave Vmax 0.48 m/sec - MV deceleration time 156.3 msec - MV A-wave Vmax 0.59 m/sec - MV E:A ratio 0.81 ratio - Aortic Valve Name Value Normal Range AV Vmax 0.97 m/sec - AV VTI 14.49 cm - AV peak gradient 3.73 mmHg - AV mean gradient 1.89 mmHg - LVOT diameter 2.09 cm - LVOT Vmax 0.72 m/sec - LVOT VTI 10.21 cm - LVOT peak gradient 2.05 mmHg - LVOT mean gradient 1.03 mmHg - SV LVOT 35.17 ml - INNA (continuity Vmax) 2.55 cm2 - INNA (continuity VTI) 2.43 cm2 - Tricuspid Valve Name Value Normal Range TV E-wave Vmax 0.37 m/sec - Pulmonic Valve/Qp:Qs Name Value Normal Range PV Vmax 0.72 m/sec - PV peak gradient 2.06 mmHg - RVOT Vmax 0.85 m/sec - RVOT VTI 9.89 cm - RVOT peak gradient 2.9 mmHg - PV acceleration time 72.31 msec - Cantor/IV: Voiding Method Condom Catheter IV Catheter Type [Right Upper PICC Line arm] IV Catheter Type [Right CVL Internal Jugular] IV Catheter Type [Right Peripheral IV Forearm] IV Catheter Type [Left Forearm INT / Saline Lock ] IV Catheter Type [Left Wrist] INT / Saline Lock IV Catheter Type [Right Hand] INT / Saline Lock IV Catheter Type [Left Hand] INT / Saline Lock IV Catheter Type [Left Peripheral IV Antecubital] Active Medications - Current Medications Current Medications: Generic Name Dose Route Start Last Admin Trade Name Freq PRN Reason Stop Dose Admin Alprazolam 0.25 mg 05/20/20 17:53 07/08/20 06:24 Alprazolam 0.25 Mg Tab PO 0.25 mg Q8H PRN Administration Anxiety Lipase/Protease/Amylase 1 each 05/22/20 13:01 Lipase 10,500/Protease 25,000/Amylase 43,750 (Units) Dr Newell FEEDTUBE PRN PRN For Clogged Feeding Tube Bisacodyl 10 mg 07/14/20 11:00 Bisacodyl 10 Mg Rect Supp FL BID PRN Laxative Effect Docusate Sodium 100 mg 05/28/20 14:00 07/16/20 09:53 Docusate Sodium 100 Mg/10 Ml Oral Liqd PO 100 mg BID DESIRE Administration Enoxaparin Sodium 80 mg 07/07/20 23:00 07/16/20 09:51 Enoxaparin 80 Mg/0.8 Ml Inj SUB-Q 80 mg Q12HR DESIRE Administration Enoxaparin Sodium 30 mg 07/07/20 23:00 07/16/20 09:52 Enoxaparin 30 Mg/0.3 Ml Inj SUB-Q 30 mg Q12HR DESIRE Administration Folic Acid 1 mg 05/09/20 15:36 07/16/20 09:52 Folic Acid 1 Mg Tab PO 1 mg QDAY DESIRE Administration Hydrophilic Ointment 1 applic 05/21/20 20:33 Lip Therapy Vaseline TP Q2HR PRN Dry Lips Cefepime HCl 2 gm in 100 mls @ 200 mls/hr 07/14/20 21:00 07/16/20 05:51 Cefepime/Ns 2 Gm/100 Ml IV 100 mls/hr Q8H DESIRE Administration Protocol Insulin Human Lispro 0 unit 05/29/20 14:00 07/16/20 05:24 Insulin Lispro 100 Unit/Ml Vial 3 Ml SUB-Q Not Given Q6H [facility] Protocol Lansoprazole 30 mg 06/28/20 10:00 07/16/20 09:52 Lansoprazole 30 Mg Solutab FEEDTUBE 30 mg QDAY DESIRE Administration Lorazepam 1 mg 07/04/20 01:10 07/12/20 22:07 Lorazepam 2 Mg/Ml Vial IV 1 mg Q1HR PRN Administration agitation Methylprednisolone Sodium Succinate 20 mg 07/15/20 10:00 07/15/20 09:25 Methylprednisolone Sod Succinate 40 Mg/1 Ml Inj IV 20 mg Q24HR DESIRE Administration Metoprolol Tartrate 5 mg 07/02/20 17:17 07/08/20 14:38 Metoprolol Tartrate 5 Mg/5 Ml Inj IV 5 mg Q6HR PRN Administration Tachyarrhythmias Midodrine 10 mg 06/30/20 16:00 07/16/20 08:52 Midodrine 5 Mg Tab PO 10 mg TID@0800,1200,1600 DESIRE Administration Multi-Ingred Cream/Lotion/Oil/Oint 1 applic 05/21/20 20:33 Mineral Oil/Petrolatum, White Ophth Oint 3.5 Gm OU Q4HR PRN Dry Eye(s) Olanzapine 2.5 mg 07/16/20 22:00 Olanzapine 5 Mg Tab PO QHS DESIRE Phenobarbital 32.4 mg 07/04/20 22:00 07/16/20 09:52 Phenobarbital 32.4 Mg Tab PO 32.4 mg BID DESIRE Administration Quetiapine Fumarate 200 mg 07/16/20 10:00 07/16/20 09:52 Quetiapine 200 Mg Tab PO 200 mg QAM DESIRE Administration Senna 17.2 mg 07/14/20 11:00 Sennosides 8.6 Mg Tab PO BID PRN Laxative Effect Simple Syrup 15 ml 05/22/20 13:01 07/15/20 05:35 Simple Syrup 15 Ml FEEDTUBE 15 ml PRN PRN Administration Hypoglycemia Simple Syrup 30 ml 05/22/20 13:01 Simple Syrup 15 Ml FEEDTUBE PRN PRN Hypoglycemia Sodium Bicarbonate 325 mg 05/22/20 13:01 Sodium Bicarbonate 325 Mg Tab FEEDTUBE PRN PRN For Clogged Feeding Tube Sodium Chloride 10 ml 05/09/20 22:00 07/16/20 09:53 Sodium Chloride 0.9% 10 Ml Flush Syringe IV 10 ml BID DESIRE Administration Nutrition/Malnutrition Assess - Dietary Evaluation Nutrition/Malnutrition Findings: Nutrition Notes Start: 05/17/20 14:10 Freq: Status: Active Protocol: Document 07/14/20 14:36 CW (Rec: 07/14/20 15:17 CW [email or web address]) Co-Sign 07/14/20 14:36 NHALL Nutrition Notes Initial or Follow up Reassessment Current Diagnosis Acute Kidney Injury,Decubitus( Pressure Ulcer),Sepsis, Respiratory Failure Other Pertinent Diagnosis Bilat pneu, COVID-19 (+), EtOH dependence Current Diet Vital HP at 65 ml/hr (goal rate) Labs/Tests K 2.7 BG 110 Pertinent Medications KCl Solumedrol Height 6 ft Weight 107.5 kg [place] Body Weight (kg) 80.90 BMI 32.1 Weight Status Obese Subjective/Other Information FU for TF tolerance. Pt has been extubated and TF stopped. Per RN, unsure when pt TF will be restarted. Percent of energy/protein needs met: 0%/0% Burn Absent Trauma Absent GI Symptoms None Current % PO Negligible Minimum of two criteria No physical signs of malnutrition #2 Nutrition Diagnosis Increased nutrient needs ( specify in comment below) Comments: protein Etiology wound healing As Evidenced by Signs and Symptoms stage II scarum pressure ulcer #1 Nutrition Diagnosis Inadequate oral intake Diagnosis Progress(for reassessment Continues documentation) Is patient on ventilator? No Is Patient Ambulatory and/or Out of Bed No REE-([facility]-confined to bed) 2365.212 Kcal/Kg value to use for calculation 16 Approximate Energy Requirements Using 1720 kcal/Kg Calculation Used for Recommendations Kcal/kg Additional Notes Pro needs >2g/kg IBW (162g/day ) Fluid needs 1ml/kcal Nutrition Intervention Change Diet Order: Restart TF when medically feasible Nutrition Support: Vital HP at 65ml/hr with 50ml water flush q4h. Kcal 1,560 Protein (gm) 136 Fluid (mL) 1,304 Goal #1 Restart TF Goal #2 TF (at goal rate) to meet at least 75% energy and pro needs Anticipated Discharge Needs: Unable to determine at this time Follow-Up By: 07/16/20 Additional Comments FU for TF start/tolerance
--- NOTE | 2020-07-16 14:02 | Progress Note ---
Assessment and Plan stable right sided small pneumothorax. hemodynamically stable. Will remain on suction over the weekend. will get CXR on sunday and likely r eturn water seal if cxr is stable. Subjective Date of service: 07/16/20 Narrative: no acute events overnight. Pt is stable on a venti mask, and verbalizes no distress. Chest tube was returned to suction. CXR this morning showed continued small pneumothorax. Objective Vital Signs - 12hr 07/16/20 07/16/20 07/16/20 02:00 02:30 03:00 Temperature Pulse Rate 112 H 115 H 113 H Pulse Rate [ From Monitor] Respiratory 25 H 15 12 Rate Blood Pressure 126/75 116/65 125/68 O2 Sat by Pulse 100 100 100 Oximetry 07/16/20 07/16/20 07/16/20 03:18 03:30 04:00 Temperature 97.7 F Pulse Rate 112 H 114 H Pulse Rate [ 110 H From Monitor] Respiratory 20 22 Rate Blood Pressure 114/60 114/66 O2 Sat by Pulse 100 99 Oximetry 07/16/20 07/16/20 07/16/20 04:30 05:00 05:30 Temperature Pulse Rate 110 H 110 H 105 H Pulse Rate [ From Monitor] Respiratory 24 22 22 Rate Blood Pressure 119/72 121/74 119/70 O2 Sat by Pulse 99 100 99 Oximetry 07/16/20 07/16/20 07/16/20 06:00 06:30 07:00 Temperature Pulse Rate 109 H 109 H 119 H Pulse Rate [ From Monitor] Respiratory 23 24 25 H Rate Blood Pressure 117/70 126/70 126/67 O2 Sat by Pulse 98 98 99 Oximetry 07/16/20 07/16/20 07/16/20 07:30 08:00 08:03 Temperature 99.3 F Pulse Rate 110 H 107 H Pulse Rate [ 121 H From Monitor] Respiratory 25 H 25 H Rate Blood Pressure 117/65 111/66 O2 Sat by Pulse 99 100 100 Oximetry 07/16/20 07/16/20 07/16/20 08:30 09:00 09:30 Temperature Pulse Rate 104 H 106 H 108 H Pulse Rate [ From Monitor] Respiratory 22 24 22 Rate Blood Pressure 106/65 112/68 104/71 O2 Sat by Pulse 100 100 99 Oximetry 07/16/20 07/16/20 07/16/20 10:00 10:30 11:00 Temperature Pulse Rate 109 H 119 H 116 H Pulse Rate [ From Monitor] Respiratory 29 H 25 H 24 Rate Blood Pressure 113/66 112/57 116/68 O2 Sat by Pulse 97 98 99 Oximetry 07/16/20 07/16/20 11:30 12:00 Temperature 99.1 F Pulse Rate Pulse Rate [ From Monitor] Respiratory 35 H Rate Blood Pressure 108/60 O2 Sat by Pulse 78 L Oximetry - General physical appearance well developed, no distress, no pain - Respiratory normal expansion, normal respiratory effort, other (Chest tube in place on suction. no air leak, william venti mask) - Labs 07/16/20 05:19 07/16/20 05:19 Diabetes panel 07/16/20 Range/Units 05:19 Sodium 132 L (137-145) mmol/L Potassium 3.4 L (3.6-5.0) mmol/L Chloride 89.9 L (98-107) mmol/L Carbon Dioxide 39 H (22-30) mmol/L BUN 10 (9-20) mg/dL Creatinine 0.3 L (0.8-1.3) mg/dL Glucose 174 H (75-100) mg/dL Calcium 9.3 (8.4-10.2) mg/dL Calcium panel 07/16/20 Range/Units 05:19 Calcium 9.3 (8.4-10.2) mg/dL Pituitary panel 07/16/20 Range/Units 05:19 Sodium 132 L (137-145) mmol/L Potassium 3.4 L (3.6-5.0) mmol/L Chloride 89.9 L (98-107) mmol/L Carbon Dioxide 39 H (22-30) mmol/L BUN 10 (9-20) mg/dL Creatinine 0.3 L (0.8-1.3) mg/dL Glucose 174 H (75-100) mg/dL Calcium 9.3 (8.4-10.2) mg/dL Adrenal panel 07/16/20 Range/Units 05:19 Sodium 132 L (137-145) mmol/L Potassium 3.4 L (3.6-5.0) mmol/L Chloride 89.9 L (98-107) mmol/L Carbon Dioxide 39 H (22-30) mmol/L BUN 10 (9-20) mg/dL Creatinine 0.3 L (0.8-1.3) mg/dL Glucose 174 H (75-100) mg/dL Calcium 9.3 (8.4-10.2) mg/dL
[2020-07-16] MEDS: methylPREDNISolone Sod Succinate 40 MG/1 ML INJ IV SCH (14:43)
[2020-07-17] MEDS: CEFEPIME/NS 2 GM/100 ML 2 GM/100 ML BAG IV SCH ×3 (05:11→21:45)
[2020-07-17] MEDS: INSULIN LISPRO 100 UNIT/ML VIAL 3 mL SUB-Q SCH ×3 (07:58→18:25)
[2020-07-17] MEDS: MIDODRINE 5 MG TAB PO SCH ×3 (08:36→16:11)
[2020-07-17] MEDS: LORazepam 2 MG/ML VIAL IV PRN ×3 (08:50→14:30)
[2020-07-17] MEDS: methylPREDNISolone Sod Succinate 40 MG/1 ML INJ IV SCH (09:32)
[2020-07-17] MEDS: ENOXAPARIN 30 MG/0.3 ML INJ SUB-Q SCH ×2 (09:32→21:46)
[2020-07-17] MEDS: LANSOPRAZOLE 30 MG SOLUTAB FEEDTUBE SCH (09:32)
[2020-07-17] MEDS: PHENobarbital 32.4 MG TAB PO SCH ×2 (09:32→21:44)
[2020-07-17] MEDS: QUEtiapine 200 MG TAB PO SCH (09:32)
[2020-07-17] MEDS: FOLIC ACID 1 MG TAB PO SCH (09:32)
[2020-07-17] MEDS: DOCUSATE SODIUM 100 MG/10 ML ORAL LIQD PO SCH ×2 (09:33→21:46)
[2020-07-17] MEDS: ENOXAPARIN 80 MG/0.8 ML INJ SUB-Q SCH ×2 (09:33→21:46)
--- NOTE | 2020-07-17 11:09 | Progress Note ---
Assessment and Plan Assessment and plan: -Pneumothorax status post chest tube Sinus tachycardia Acute hypoxemic respiratory failure; Patient intubated and on vent support --Severe COVID-19 bilateral pneumonia Coronavirus protocol: IV steroid therapy, completed remdesivir, isolation precautions, contact precautions, prone positioning while in bed, pulmonary toilet. ID following SARS CoV-2 IgG positive patient is NOT a candidate for COVID convalescent plasma --Severe sepsis/septic shock, due to COVID 19 PNA cont pressors as needed -- Acute kidney injury (SEN) , likely vasomotor nephropathy Resolved, IV fluids, avoid nephrotoxins --Acute on chronic anemia Guaiac test positive GI evaluation PPIs Continue to monitor -- Elevated liver function tests Suspected secondary to alcoholic liver disease. Supportive care, alcohol cessation, patient counseled. --Colonic distention GI evaluation -recommend stool softeners Serial abdominal x-rays Monitor electrolytes and replete -- DVT prophylaxis On therapeutic Lovenox 50 YO Male with Obesity, ETOH Dependence presents to ED for evaluation for s hortness of breath, generalized weakness, fatigue, malaise, body aches, decreased exercise tolerance over the past 5 days. EMS was notified and upon arrival the patient was found to be in distress with a pulse oximetry of 76% on room air as well as fever to 103 F. In the ER chest x-ray and was found to have bilateral pneumonia. Patient admitted to medical floor and initiated on pneumonia protocol as well as COVID-19 protocol. Patient reports being diagnosed with coronavirus 2 days ago before admission. 06/16/2020. Patient currently on mechanical ventilation with AC mode rate 30, tidal volume 500, FiO2 70% and PEEP of 16. Continue anticoagulation with Lovenox 110 milligrams subcu every 12 hours. Wean sedation of fentanyl/Versed as needed. Currently with IV steroids of Solu-Medrol 40 mg IV every 12 hours. Patient will likely need tracheostomy per pulmonary recommendations. Continue pressors to maintain MAP > 65. 06/17/2020. Patient currently on mechanical ventilation with AC mode rate 30, tidal volume 500, FiO2 65% and PEEP of 16. Continue anticoagulation with Lovenox 110 milligrams subcu every 12 hours. Wean sedation of fentanyl/Versed as needed. Currently with IV steroids of Solu-Medrol 40 mg IV every 12 hours. Patient will likely need tracheostomy per pulmonary recommendations. 06/18/2020. Patient currently on mechanical ventilation with AC mode rate 30, tidal volume 500, FiO2 70% and PEEP of 16. Continue Lovenox for anticoagulation and fentanyl/Versed for sedation. Wean steroids per pulmonary. CIWA protocol initiated for history of EtOH dependence 06/19/2020. Patient currently on mechanical ventilation with AC mode rate 30, tidal volume 500, FiO2 60% and PEEP of 16. Wean FiO2 as tolerated per protocol. Continue Lovenox for anticoagulation and fentanyl/Versed for sedation. Wean steroids per pulmonary. CIWA protocol initiated for history of EtOH dependence 06/20/2020. Patient currently on mechanical ventilation with AC mode rate 30, tidal volume 500, FiO2 60% and PEEP of 16. Wean FiO2 as tolerated, SBT per pro tocol. Continue Lovenox for anticoagulation and fentanyl/Versed for sedation. Wean steroids per pulmonary. Continue pressors to maintain MAP > 65 mmHg. Patient remains on ETT. Consider tracheostomy placement once oxygenation is better per pulmonary. CIWA protocol initiated for history of EtOH dependence. 06/21/2020. Patient with a small apical pneumothorax discovered yesterday. General surgery consulted and consider placing chest tube. Follow-up serial chest x-ray patient currently on mechanical ventilation with AC mode rate 30, tidal volume 500, FiO2 60% and PEEP of 16. Wean FiO2 as tolerated, SBT per protocol. Continue Lovenox for anticoagulation and fentanyl/Versed for sedation. Wean steroids per pulmonary. Continue pressors to maintain MAP > 65 mmHg. Patient remains on ETT. Consider tracheostomy placement once oxygenation is better per pulmonary. CIWA protocol initiated for history of EtOH dependence. 06/22. Status post right chest tube placement yesterday. Remains mechanically ventilated on pressors. Examination today shows slightly distended abdomen. KUB ordered. Awaiting stool guaiac. Plan to get a GI evaluation. 06/23. Has colonic distention on the x-ray. Discussed with GI-advised stool softeners for now and close monitoring. No indication for colonic decompression at this time. Guaiac test is positive. No emergent indication for endoscopy at this point as per GI. Continue to monitor hemoglobin. 06/24. Remains intubated. On pressors. GI following for positive guaiac stool and anemia, and colonic distention. 06/25. Repeat abdominal xray ordered. Remains on mechanical ventilation. 06/26. Abdominal xray - resolved colonic distension. Mechanically ventilated. 06/27. Plan for trach and PEG. 06/28: Awaiting trach and Peg. S\ome Bm REPORTED, will continue to monitor 06/29: Resume care, patient remains on ventilator support, waiting on trach and PEG placement. BM reported by the RN, continue to monitor. 06/30: Unable to wean off from vent, patient will need trach and PEG. Continue supportive care, tolerating tube feed. Monitor CBC and BMP 07/01: Continue mechanical ventilation, tube feeding as tolerated. Sedation as needed per mechanical ventilation protocol. Waiting on trach and PEG placement. 07/02: Continue current management, tube feeding, monitor CBC and BMP. Need trach and PEG-waiting on scheduling. Pulmonary critical care following. 07/03: wean off vent as tolerated. follow clinically. need trach and PEG 07/04: unable to wean. CT head ordered to assess for any changes but too unstable to do the test. need trach and PEG. 07/05: plan for trach/peg - GS following. off pressor - on midodrine. renal function stable. intubated, but alert and can follow minor commend. discussed with daughter by phone. 07/06/2020; Dr. Márquez discussed with patient's daughter about trach but the daughter needs time to think about it. Patient was intubated and alert, FiO2 40%. 07/07/2020; patient was intubated and alert, FiO2 40%. Patient was diaphoretic, tachycardic, and EKG was done which was abnormal for me. I called pharmacy aide Dr Louis saw the EKG and said it is normal EKG, and the findings are abnormal. 07/08/2020; no significant change, patient is intubated and alert. 1/2: Patient continues on current management. Pulmonary recommending trach and PEG awaiting patient's decision on this. Will check intermittent labs /3: Ordered CT still pending. Patient was agitated at night. Appears to have calmed down. Will repeat labs today. 07/12: Continue supportive care, awaiting CPAP trial. discussed with pulmonary. Obtain labs today. Trach and Peg planned 07/13: Continues to current management, PLAN FOR Trach and PEG on Sunday if patient is not able to liberated from the ventilator, Continue to monitor Fever curve and repeat Sepsis work up if persistent fever 07/14: Now extubated, continue to work up. 07/15: Clinical stable for transfer to [facility], still with fever and now showing bactermia. Continue Abx per ID. monitor fever 07/16: Continue supportive care. MONITOR FEVER CURVE, Adjust antibiotics as tolerated 07/17: Chest tube remains in place. More lethargic, Requested BIPAP to bedside, Chest tube to be discontinued, Awaiting Pysch input. The high probability of a clinically significant, sudden or life threatening deterioration of the [respiratory] system(s) required my full and direct attention, intervention and personal management. The aggregate critical care time was [31] minutes. This time is in addition to time spent performing reported procedures but includes the following: [x] Data Review and interpretation [x] Patient assessment and monitoring of vital signs [x] Documentation [x] Medication orders and management History Interval history: Pt seen and examined. lethargic today with congestion, mild distress on venturi mask Hospitalist Physical - Physical exam Narrative exam: VITAL SIGNS: Reviewed. Exam limited due to global pandemic PPE GENERAL: AWAKE, FOLLOWS COMMAND HEAD: No signs of head trauma. MOUTH: Oropharynx is normal. NECK: No adenopathy, no JVD. CHEST: Chest with diminished breath sounds bilaterally. No wheezes, rales, or rhonchi. CARDIAC: normal S1 and S2, without murmurs, gallops, or rubs. ABDOMEN: Slightly distended, bowel sounds hypoactive NEUROLOGICAL EXAM: DROWSY BUT AWAKE AND FOLLOWING SOME COMMANDS BUT CONFUSION PERSIST - Constitutional Vitals: Temp Pulse Resp BP Pulse Ox 98.8 F 127 H 27 H 134/98 90 07/17/20 04:00 07/17/20 10:33 07/17/20 10:33 07/17/20 10:00 07/17/20 10:33 General appearance: Present: no acute distress, mild distress, well-nourished HEART Score - HEART Score Troponin: Troponin T 0.015 ng/mL (0.00-0.029) 07/07/20 10:00 Results - Labs CBC & Chem 7: 07/16/20 05:19 07/16/20 05:19 Labs: Laboratory Last Values WBC 11.3 K/mm3 (4.5-11.0) H 07/16/20 05:19 RBC 3.10 M/mm3 (3.65-5.03) L 07/16/20 05:19 Hgb 10.0 gm/dl (11.8-15.2) L 07/16/20 05:19 Hct 30.3 % (35.5-45.6) L 07/16/20 05:19 MCV 98 fl (84-94) H 07/16/20 05:19 MCH 32 pg (28-32) 07/16/20 05:19 MCHC 33 % (32-34) 07/16/20 05:19 RDW 16.3 % (13.2-15.2) H 07/16/20 05:19 Plt Count 284 K/mm3 (140-440) 07/16/20 05:19 Lymph % (Auto) 17.5 % (13.4-35.0) 07/11/20 08:13 Owen % (Auto) 9.3 % (0.0-7.3) H 07/11/20 08:13 Eos % (Auto) 0.3 % (0.0-4.3) 07/11/20 08:13 Baso % (Auto) 0.2 % (0.0-1.8) 07/11/20 08:13 Lymph # (Auto) 2.1 K/mm3 (1.2-5.4) 07/11/20 08:13 Owen # (Auto) 1.1 K/mm3 (0.0-0.8) H 07/11/20 08:13 Eos # (Auto) 0.0 K/mm3 (0.0-0.4) 07/11/20 08:13 Baso # (Auto) 0.0 K/mm3 (0.0-0.1) 07/11/20 08:13 Add Manual Diff Complete 07/13/20 08:31 Total Counted 100 07/13/20 08:31 Seg Neutrophils % [employer] Operator 07/13/20 08:31 Seg Neuts % (Manual) 96.0 % (40.0-70.0) H 07/13/20 08:31 Band Neutrophils % 0 % 07/13/20 08:31 Lymphocytes % (Manual) 2.0 % (13.4-35.0) L 07/13/20 08:31 Reactive Lymphs % (Man) 0 % 07/13/20 08:31 Monocytes % (Manual) 2.0 % (0.0-7.3) 07/13/20 08:31 Eosinophils % (Manual) 0 % (0.0-4.3) 07/13/20 08:31 Basophils % (Manual) 0 % (0.0-1.8) 07/13/20 08:31 Metamyelocytes % 0 % 07/13/20 08:31 Myelocytes % 0 % 07/13/20 08:31 Promyelocytes % 0 % 07/13/20 08:31 Blast Cells % 0 % 07/13/20 08:31 Nucleated RBC % Not Reportable 07/13/20 08:31 Seg Neutrophils # 8.7 K/mm3 (1.8-7.7) H 07/11/20 08:13 Seg Neutrophils # Man 20.4 K/mm3 (1.8-7.7) H 07/13/20 08:31 Band Neutrophils # 0.0 K/mm3 07/13/20 08:31 Lymphocytes # (Manual) 0.4 K/mm3 (1.2-5.4) L 07/13/20 08:31 Abs React Lymphs (Man) 0.0 K/mm3 07/13/20 08:31 Monocytes # (Manual) 0.4 K/mm3 (0.0-0.8) 07/13/20 08:31 Eosinophils # (Manual) 0.0 K/mm3 (0.0-0.4) 07/13/20 08:31 Basophils # (Manual) 0.0 K/mm3 (0.0-0.1) 07/13/20 08:31 Metamyelocytes # 0.0 K/mm3 07/13/20 08:31 Myelocytes # 0.0 K/mm3 07/13/20 08:31 Promyelocytes # 0.0 K/mm3 07/13/20 08:31 Blast Cells # 0.0 K/mm3 07/13/20 08:31 WBC Morphology Not Reportable 07/13/20 08:31 Hypersegmented Neuts Not Reportable 07/13/20 08:31 Hyposegmented Neuts Not Reportable 07/13/20 08:31 Hypogranular Neuts Not Reportable 07/13/20 08:31 Smudge Cells Not Reportable 07/13/20 08:31 Toxic Granulation Not Reportable 07/13/20 08:31 Toxic Vacuolation Not Reportable 07/13/20 08:31 Dohle Bodies Not Reportable 07/13/20 08:31 Pelger-Huet Anomaly Not Reportable 07/13/20 08:31 Jason Rods Not Reportable 07/13/20 08:31 Platelet Estimate Consistent w auto 07/13/20 08:31 Clumped Platelets Not Reportable 07/13/20 08:31 Plt Clumps, EDTA Not Reportable 07/13/20 08:31 Large Platelets Not Reportable 07/13/20 08:31 Giant Platelets Not Reportable 07/13/20 08:31 Platelet Satelliting Not Reportable 07/13/20 08:31 Plt Morphology Comment Not Reportable 07/13/20 08:31 RBC Morphology Not Reportable 07/13/20 08:31 Dimorphic RBCs Not Reportable 07/13/20 08:31 Polychromasia Not Reportable 07/13/20 08:31 Hypochromasia Not Reportable 07/13/20 08:31 Poikilocytosis Not Reportable 07/13/20 08:31 Anisocytosis Not Reportable 07/13/20 08:31 Microcytosis Not Reportable 07/13/20 08:31 Macrocytosis Not Reportable 07/13/20 08:31 Spherocytes Not Reportable 07/13/20 08:31 Pappenheimer Bodies Not Reportable 07/13/20 08:31 Sickle Cells Not Reportable 07/13/20 08:31 Target Cells Not Reportable 07/13/20 08:31 Tear Drop Cells Not Reportable 07/13/20 08:31 Ovalocytes Not Reportable 07/13/20 08:31 Stomatocytes Few 07/13/20 08:31 Helmet Cells Not Reportable 07/13/20 08:31 [place] Bodies Not Reportable 07/13/20 08:31 [place] Rings Not Reportable 07/13/20 08:31 [place] Cells Not Reportable 07/13/20 08:31 Bite Cells Not Reportable 07/13/20 08:31 Crenated Cell Not Reportable 07/13/20 08:31 Elliptocytes Not Reportable 07/13/20 08:31 Acanthocytes (Spur) Not Reportable 07/13/20 08:31 Rouleaux Not Reportable 07/13/20 08:31 Hemoglobin C Crystals Not Reportable 07/13/20 08:31 Schistocytes Not Reportable 07/13/20 08:31 Malaria parasites Not Reportable 07/13/20 08:31 Josue Bodies Not Reportable 07/13/20 08:31 Hem Pathologist Commnt No 07/13/20 08:31 PT 11.8 Sec. (12.2-14.9) L 06/22/20 14:29 INR 0.88 (0.87-1.13) 06/22/20 14:29 APTT 23.5 Sec. (24.2-36.6) L 06/22/20 14:29 D-Dimer 1887.82 ng/mlDDU (0-234) H 05/20/20 08:16 Heparin Anti-Xa Level 0.37 U.I./ml (0.3-0.7) 07/02/20 16:08 ABG pH 7.477 (7.320-7.450) H 07/13/20 13:52 POC ABG pCO2 54.4 mmHg (32.0-48.0) H 07/13/20 13:52 ABG pCO2 53.1 mm Hg 07/08/20 Unknown POC ABG pO2 126.8 mmHg (83-108) H 07/13/20 13:52 ABG pO2 75.3 mm Hg (80.0-90.0) L 07/08/20 Unknown POC ABG HCO3 39.3 07/13/20 13:52 ABG HCO3 34.3 mmol/L (20.0-26.0) H 07/08/20 Unknown ABG O2 Saturation 96.5 % (95.0-99.0) 07/08/20 Unknown ABG O2 Content 13.5 (0.0-44) 07/08/20 Unknown POC ABG Base Excess 13.8 07/13/20 13:52 ABG Base Excess 8.7 mmol/L (-2.0-3.0) H 07/08/20 Unknown ABG Hemoglobin 11.5 (12.0-17.5) L 07/13/20 13:52 ABG Oxyhemoglobin 97.7 (94-98) 07/13/20 13:52 ABG Carboxyhemoglobin 2.4 % (0.0-5.0) 07/08/20 Unknown ABG Methemoglobin 0 (0.0-1.5) 07/13/20 13:52 ABG Sodium 136.2 mmol/L (136.0-145.0) 07/13/20 13:52 ABG Potassium 3.2 mmol/L (3.40-4.50) L 07/13/20 13:52 ABG Chloride 92.0 mmol/L (98-107) L 07/13/20 13:52 ABG Glucose 169 mg/dL (65-95) H 07/13/20 13:52 Oxyhemoglobin 93.7 % (95.0-99.0) L 07/08/20 Unknown Carboxyhemoglobin 1.2 (0.5-1.5) 07/13/20 13:52 FiO2 45 07/13/20 13:52 Sodium 132 mmol/L (137-145) L 07/16/20 05:19 Potassium 3.4 mmol/L (3.6-5.0) L 07/16/20 05:19 Chloride 89.9 mmol/L (98-107) L 07/16/20 05:19 Carbon Dioxide 39 mmol/L (22-30) H 07/16/20 05:19 Anion Gap 7 mmol/L 07/16/20 05:19 BUN 10 mg/dL (9-20) 07/16/20 05:19 Creatinine 0.3 mg/dL (0.8-1.3) L 07/16/20 05:19 Estimated GFR > 60 ml/min 07/16/20 05:19 BUN/Creatinine Ratio 33 % 07/16/20 05:19 Glucose 174 mg/dL (75-100) H 07/16/20 05:19 POC Glucose 149 mg/dL (70-105) H 07/17/20 05:32 Lactic Acid 0.80 mmol/L (0.7-2.0) 07/13/20 15:45 Calcium 9.3 mg/dL (8.4-10.2) 07/16/20 05:19 Phosphorus 3.10 mg/dL (2.5-4.5) 06/15/20 04:00 Magnesium 1.80 mg/dL (1.7-2.3) 07/14/20 07:49 Ferritin 1496.0 ng/mL (30.0-300.0) H 06/14/20 11:50 Total Bilirubin 0.60 mg/dL (0.1-1.2) 06/30/20 07:00 Direct Bilirubin 0.6 mg/dL (0-0.2) H 05/11/20 07:30 Indirect Bilirubin 0.9 mg/dL 05/11/20 07:30 AST 21 units/L (5-40) 06/30/20 07:00 ALT 30 units/L (7-56) 06/30/20 07:00 Alkaline Phosphatase 81 units/L (35-129) 06/30/20 07:00 Lactate Dehydrogenase 705 units/L (91-180) H 05/20/20 08:16 Troponin T 0.015 ng/mL (0.00-0.029) 07/07/20 10:00 C-Reactive Protein 3.10 mg/dL (0.00-1.30) H 05/20/20 08:16 Total Protein 6.3 g/dL (6.3-8.2) 06/30/20 07:00 Albumin 2.8 g/dL (3.9-5) L 06/30/20 07:00 Albumin/Globulin Ratio 0.8 % 06/30/20 07:00 Triglycerides 452 mg/dL (2-149) H 06/30/20 07:00 Lipase 86 units/L (13-60) H 06/29/20 09:36 Procalcitonin 2.15 ng/mL (<0.15) 07/15/20 05:31 Arterial Blood Glucose 169 mg/dL (65-95) H 07/13/20 13:52 Arterial Blood Ionized Calcium 4.8 mg/dL (4.6-5.3) 07/13/20 13:52 Urine Color Fauzia (Yellow) 05/10/20 Unknown Urine Turbidity Clear (Clear) 05/10/20 Unknown Urine pH 5.0 (5.0-7.0) 05/10/20 Unknown Ur Specific [place] 1.019 (1.003-1.030) 05/10/20 Unknown Urine Protein 100 mg/dl mg/dL (Negative) 05/10/20 Unknown Urine Glucose (UA) Neg mg/dL (Negative) 05/10/20 Unknown Urine Ketones Neg mg/dL (Negative) 05/10/20 Unknown Urine Blood Lg (Negative) 05/10/20 Unknown Urine Nitrite Neg (Negative) 05/10/20 Unknown Urine Bilirubin Neg (Negative) 05/10/20 Unknown Urine Urobilinogen 2.0 mg/dL (<2.0) 05/10/20 Unknown Ur Leukocyte Esterase Neg (Negative) 05/10/20 Unknown Urine WBC (Auto) 11.0 /HPF (0.0-6.0) H 05/10/20 Unknown Urine RBC (Auto) 2.0 /HPF (0.0-6.0) 05/10/20 Unknown U Epithel Cells (Auto) 1.0 /HPF (0-13.0) 05/10/20 Unknown Urine Bacteria (Auto) 1+ /HPF (Negative) 05/10/20 Unknown Urine Mucus Few /HPF 05/10/20 Unknown Plasma/Serum Alcohol < 0.01 % (0-0.07) 05/09/20 14:20 Coronavirus (PCR) Negative (Negative) 06/30/20 10:28 Hepatitis A Ab Total Nonreactive (Nonreactive) 07/09/20 Unknown Hep B Core Total Ab Nonreactive (Nonreactive) 07/09/20 Unknown SARS-CoV-2 IgG Ab Reactive (NonReactive) A 05/11/20 07:30 Blood Type B POSITIVE 06/21/20 14:18 Antibody Screen Negative 06/21/20 14:18 Crossmatch See Detail 06/21/20 14:18 - Diagnostic Impressions Diagnostic Impressions: Echocardiogram 05/20/20 13:02 Transthoracic Echocardiogram Indication: CHF BP: 97/73 Conclusions *The study quality is technically very difficult and limited. *The left ventricular chamber size, wall thickness and systolic function are within normal limits. There are no wall motion abnormalities observed. Ejection fraction is normal. *The estimated ejection fraction is 60-65%. *The pericardium appears normal. Findings Procedure Info: The study quality is technically difficult. Left Ventricle: The left ventricular chamber size, wall thickness and systolic function are within normal limits. There are no wall motion abnormalities observed. Ejection fraction is normal. The estimated ejection fraction is 60-65%. Abnormal left ventricular diastolic filling is observed, consistent with impaired relaxation. Left Atrium: The left atrium is normal in size with no visual thrombus identified. Right Ventricle: The right ventricle is not well visualized. Right Atrium: The right atrium is not well visualized. Aortic Valve: The aortic valve is trileaflet. The leaflets are thin with normal excursion. There is no aortic stenosis or regurgitation present. Mitral Valve: The mitral valve appears normal in structure and function. Tricuspid Valve: The tricuspid valve appears normal in structure and function. Unable to estimate the right ventricular systolic pressure. Pulmonic Valve: The pulmonic valve is not well visualized. There is no evidence of pulmonic regurgitation. There is no pulmonic stenosis. Pericardium: The pericardium appears normal. Pulmonary Artery: The main pulmonary artery is not well visualized. Venous: The inferior vena cava appears normal in size. Measurements Chambers 2D Name Value Normal Range IVSd (2D) 0.83 cm (0.6 - 1.1) LVPWd (2D) 0.83 cm (0.6 - 1.1) LVIDd (2D) 3.88 cm (3.7 - 5.6) LVIDs (2D) 2.46 cm (2 - 3.8) LV FS (2D) 36.52 % - EF Teichholz (2D) 66.97 % - Ao root diameter (2D) 3.47 cm (2 - 3.7) Volumes/Mass Name Value Normal Range LA ESV SP 4CH (A/L) 22.4 ml - LA ESV SP 2CH (A/L) 22.89 ml - LA ESV BP (A/L) 23.06 ml - LA ESV SP 4CH (MOD) 21.09 ml - LA ESV SP 2CH (MOD) 22.44 ml - Diastolic/Systolic Function Name Value Normal Range MV E-wave Vmax 0.48 m/sec - MV deceleration time 156.3 msec - MV A-wave Vmax 0.59 m/sec - MV E:A ratio 0.81 ratio - Aortic Valve Name Value Normal Range AV Vmax 0.97 m/sec - AV VTI 14.49 cm - AV peak gradient 3.73 mmHg - AV mean gradient 1.89 mmHg - LVOT diameter 2.09 cm - LVOT Vmax 0.72 m/sec - LVOT VTI 10.21 cm - LVOT peak gradient 2.05 mmHg - LVOT mean gradient 1.03 mmHg - SV LVOT 35.17 ml - INNA (continuity Vmax) 2.55 cm2 - INNA (continuity VTI) 2.43 cm2 - Tricuspid Valve Name Value Normal Range TV E-wave Vmax 0.37 m/sec - Pulmonic Valve/Qp:Qs Name Value Normal Range PV Vmax 0.72 m/sec - PV peak gradient 2.06 mmHg - RVOT Vmax 0.85 m/sec - RVOT VTI 9.89 cm - RVOT peak gradient 2.9 mmHg - PV acceleration time 72.31 msec - Cantor/IV: Voiding Method Condom Catheter IV Catheter Type [Right Upper Peripheral IV arm] IV Catheter Type [Right CVL Internal Jugular] IV Catheter Type [Right Peripheral IV Forearm] IV Catheter Type [Left Forearm INT / Saline Lock ] IV Catheter Type [Left Wrist] INT / Saline Lock IV Catheter Type [Right Hand] INT / Saline Lock IV Catheter Type [Left Hand] INT / Saline Lock IV Catheter Type [Left Peripheral IV Antecubital] Active Medications - Current Medications Current Medications: Generic Name Dose Route Start Last Admin Trade Name Freq PRN Reason Stop Dose Admin Alprazolam 0.25 mg 05/20/20 17:53 07/08/20 06:24 Alprazolam 0.25 Mg Tab PO 0.25 mg Q8H PRN Administration Anxiety Lipase/Protease/Amylase 1 each 05/22/20 13:01 Lipase 10,500/Protease 25,000/Amylase 43,750 (Units) Dr Newell FEEDTUBE PRN PRN For Clogged Feeding Tube Bisacodyl 10 mg 07/14/20 11:00 Bisacodyl 10 Mg Rect Supp CA BID PRN Laxative Effect Docusate Sodium 100 mg 05/28/20 14:00 07/17/20 09:33 Docusate Sodium 100 Mg/10 Ml Oral Liqd PO Not Given BID DESIRE Enoxaparin Sodium 80 mg 07/07/20 23:00 07/17/20 09:33 Enoxaparin 80 Mg/0.8 Ml Inj SUB-Q 80 mg Q12HR DESIRE Administration Enoxaparin Sodium 30 mg 07/07/20 23:00 07/17/20 09:32 Enoxaparin 30 Mg/0.3 Ml Inj SUB-Q 30 mg Q12HR DESIRE Administration Folic Acid 1 mg 05/09/20 15:36 07/17/20 09:32 Folic Acid 1 Mg Tab PO 1 mg QDAY DESIRE Administration Hydrophilic Ointment 1 applic 05/21/20 20:33 Lip Therapy Vaseline TP Q2HR PRN Dry Lips Cefepime HCl 2 gm in 100 mls @ 200 mls/hr 07/14/20 21:00 07/17/20 05:11 Cefepime/Ns 2 Gm/100 Ml IV 100 mls/hr Q8H DESIRE Administration Protocol Insulin Human Lispro 0 unit 05/29/20 14:00 07/17/20 07:58 Insulin Lispro 100 Unit/Ml Vial 3 Ml SUB-Q Not Given Q6H [facility] [place] Protocol Lansoprazole 30 mg 06/28/20 10:00 07/17/20 09:32 Lansoprazole 30 Mg Solutab FEEDTUBE 30 mg QDAY DESIRE Administration Lorazepam 1 mg 07/04/20 01:10 07/17/20 08:50 Lorazepam 2 Mg/Ml Vial IV 1 mg Q1HR PRN Administration agitation Methylprednisolone Sodium Succinate 20 mg 07/15/20 10:00 07/17/20 09:32 Methylprednisolone Sod Succinate 40 Mg/1 Ml Inj IV 20 mg Q24HR DESIRE Administration Metoprolol Tartrate 5 mg 07/02/20 17:17 07/08/20 14:38 Metoprolol Tartrate 5 Mg/5 Ml Inj IV 5 mg Q6HR PRN Administration Tachyarrhythmias Midodrine 10 mg 06/30/20 16:00 07/17/20 08:36 Midodrine 5 Mg Tab PO 10 mg TID@0800,1200,1600 DESIRE Administration Multi-Ingred Cream/Lotion/Oil/Oint 1 applic 05/21/20 20:33 Mineral Oil/Petrolatum, White Ophth Oint 3.5 Gm OU Q4HR PRN Dry Eye(s) Olanzapine 2.5 mg 07/16/20 22:00 07/16/20 22:08 Olanzapine 5 Mg Tab PO 2.5 mg QHS DESIRE Administration Phenobarbital 32.4 mg 07/04/20 22:00 07/17/20 09:32 Phenobarbital 32.4 Mg Tab PO 32.4 mg BID DESIRE Administration Quetiapine Fumarate 200 mg 07/16/20 10:00 07/17/20 09:32 Quetiapine 200 Mg Tab PO 200 mg QAM DESIRE Administration Senna 17.2 mg 07/14/20 11:00 Sennosides 8.6 Mg Tab PO BID PRN Laxative Effect Simple Syrup 15 ml 05/22/20 13:01 07/15/20 05:35 Simple Syrup 15 Ml FEEDTUBE 15 ml PRN PRN Administration Hypoglycemia Simple Syrup 30 ml 05/22/20 13:01 Simple Syrup 15 Ml FEEDTUBE PRN PRN Hypoglycemia Sodium Bicarbonate 325 mg 05/22/20 13:01 Sodium Bicarbonate 325 Mg Tab FEEDTUBE PRN PRN For Clogged Feeding Tube Sodium Chloride 10 ml 05/09/20 22:00 07/17/20 09:33 Sodium Chloride 0.9% 10 Ml Flush Syringe IV 10 ml BID DESIRE Administration Nutrition/Malnutrition Assess - Dietary Evaluation Nutrition/Malnutrition Findings: Nutrition Notes Start: 05/17/20 14:10 Freq: Status: Active Protocol: Document 07/16/20 13:58 AB (Rec: 07/16/20 14:09 AB [id number]) Co-Sign 07/16/20 13:58 MK Nutrition Notes Initial or Follow up Reassessment Current Diagnosis Acute Kidney Injury,Decubitus( Pressure Ulcer),Sepsis, Respiratory Failure Other Pertinent Diagnosis Bilat pneu, COVID-19 (+), EtOH dependence Current Diet Vital HP at 65 ml/hr Labs/Tests Na 132 K 3.4 Cr 0.3 BG 174 Pertinent Medications Reviewed Height 6 ft Weight 107.5 kg [place] Body Weight (kg) 80.90 BMI 32.1 Weight Status Obese Subjective/Other Information F/U for TF start/tolerance. Observed pt TF running at goal rate. Pt is no longer on vent . Percent of energy/protein needs met: 91%/100% Burn Absent Trauma Absent GI Symptoms None Current % PO Negligible Minimum of two criteria No physical signs of malnutrition #2 Nutrition Diagnosis Increased nutrient needs ( specify in comment below) Diagnosis Progress(for reassessment Continues documentation) #1 Nutrition Diagnosis Inadequate oral intake Diagnosis Progress(for reassessment Continues documentation) Is patient on ventilator? No Is Patient Ambulatory and/or Out of Bed No REE-([facility]-confined to bed) 2365.212 Kcal/Kg value to use for calculation 16 Approximate Energy Requirements Using 1720 kcal/Kg Calculation Used for Recommendations Kcal/kg Additional Notes Protein: 134-161 g (1.25-1.5 g /kg) Fluid: 1 ml/kcal Nutrition Intervention Change Diet Order: Continue current TF Nutrition Support: Vital HP at 65ml/hr with 50ml water flush q4h. For hyponatremia flush with 50 ml q6h. Kcal 1,560 Protein (gm) 136 Fluid (mL) 1,304 Goal #1 TF tolerance Goal #2 TF (at goal rate) to meet at least 75% energy and pro needs Anticipated Discharge Needs: Unable to determine at this time Follow-Up By: 07/23/20 Additional Comments F/U for TF tolerance
[2020-07-17] MEDS: METOPROLOL TARTRATE 25 MG TAB PO SCH ×2 (11:40→21:45)
[2020-07-17] MEDS: ALPRAZolam 0.25 MG TAB PO PRN (12:00)
--- NOTE | 2020-07-17 12:16 | XRay Report ---
CHEST 1 VIEW 07/17/2020 11:54 AM INDICATION / CLINICAL INFORMATION: shortness of breath. COMPARISON: Previous day FINDINGS: SUPPORT DEVICES: Unchanged. HEART / MEDIASTINUM: No significant abnormality. LUNGS / PLEURA: Persistent bilateral opacity with mild improvement. Lung volumes have improved. No pn eumothorax. ADDITIONAL FINDINGS: No significant additional findings. IMPRESSION: Mild interval improvement. Signer Name: Bassam Doss MD Signed: 07/17/2020 12:12 PM Workstation Name: [id number]
--- NOTE | 2020-07-17 12:27 | Progress Note ---
Subjective - Reason for Consult Consult date: 07/17/20 Reason for consult: MHE Requesting physician: BLAIR WALLIS - Chief Complaint Chief complaint: Psych Progress Patient seen in room on restraints, still confused barely audible due to high oxygen flow and current mental status. MENTAL STATUS EXAMINATION General Appearance and Behavior: Age appropriate, good hygiene, wearing appropriate clothes, cooperative polite with questioning. Cooperation: Withdrawn Psychomotor Behavior: Psychomotor agitation Mood: N/A Affect and affective range: Flat Thought Process: Tangential Thought Content: Paranoid and confused Speech: Low volume, Regular rate and rhythm, Intellectual Functioning: Poor Suicidal Ideation: N/A Homicidal Ideation: N/A Impulse Control: Unimpaired Insight and Judgment: Impaired Memory: memory impaired Attention:Distractible, Assessment and Plan - Psychiatric problem (1) Delirium due to another medical condition Current Visit: Yes Status: Acute F05 Treatment Continue current medications Started on olanzapine 2.5 nightly, increased to 5mg. Seroquel changed to 200 mg every morning MEDICATIONS: Risks, benefits and alternatives of medications discussed with the patient, questions answered and consent obtained from patient. PSYCHOTHERAPY: Supportive psychotherapy provided MEDICAL: Per primary team DELIRIUM PRECAUTIONS: Please re-orient patient frequently, keep lights on during the day, and minimize benzodiazepines and opiates as these medications could worsen patient's confusion. [place]: DISPOSITION: Do Not Recommend acute inpatient psychiatric hospitalization at this time but patient will be followed. Case discussed with Dr. Foster who agrees with current disposition LEGAL STATUS: 1013 FOLLOW-UP: Will follow Thank you for the consult. Please contact with any questions and/or concerns. Mental Status Exam - Vital signs Last Vital Signs Temp 98.8 F 07/17/20 04:00 Pulse 127 H 07/17/20 10:33 Resp 27 H 07/17/20 10:33 BP 134/98 07/17/20 10:00 Pulse Ox 90 07/17/20 10:33 Assessment and Plan - Patient Problems (1) Delirium due to another medical condition Current Visit: Yes Status: Acute
--- NOTE | 2020-07-17 14:41 | Progress Note ---
Assessment and Plan Acute hypoxemic respiratory failure due to COVID-19 Severe Sepsis Bilateral pneumonia Acute kidney injury (SEN) with acute tubular necrosis (ATN) Alcohol dependence Elevated liver function tests - Psychiatry evaluation ongoing - chest tube removal per surgeon - continue BIPAP scheduled qhs with prn daytime use - continue [employer] evaluation - continue care as below otherwise; - prn Levophed for target MAP > 65 mmHg - continue to wean supplemental oxygen for target O2 sat's > 92% acutely - continue bid protonix - continue bowel regimen - aspiration precautions - continue bronchodilators with pulmonary hygiene per RT - accuchecks with glycemic control per SSI for target blood glucose of < 180 mg/dL; avoid hypoglycemia - enteral nutritional support at goal rate as tolerated - repeat COVID-19 testing is negative X 2 - continue Zinc & Vit C supplementaion - wean systemic steroids for Asthma / severe COVID infection - continue empiric full dose anticoagulation re: elevated d-dimers / hypercoagulable state - completed remdesivir dosing (total 5 days) - empiric AB's coverage per ID rec's - avoid nephrotoxins, renally dose all medications - continue to avoid benzodiazepine's, reduce the possibility of delirium - continue wound care per RN / WCN - prn analgesia per CPOT score - Maintenance of sleep-wake cycle, avoid delirium - continue to avoid benzodiazepine's, reduce the possibility of delirium - aspiration precautions - G.I. & VTE prophylaxis - PT/OT/ROM exercises - continue mobility protocols for pressure ulcer prophylaxis - Monitor hemodynamics closely - continue other care per attending / other consultants - discharge planning ongoing concurrently - transfer to [facility] ok .... Re-evaluate in am & prn CONDITION: FAIR PROGNOSIS: GUARDED CODE STATUS: FULL CODE I have spent ( >35 ) minutes with the patient w/ >50% of the time spent counseling and/or coordinating care for this patient. Counseling topics and/or how time was spent coordinating patient's care is outlined in the impression and plan above. Subjective Date of service: 07/17/20 Principal diagnosis: Ac hypoxemic resp failure; COVID-19; Severe Sepsis; Shaggy PNA; Alcohol Abuse Interval history: Patient is seen today for: Acute hypoxemic respiratory failure due to COVID-19; Severe Sepsis; Bilateral pneumonia; Alcohol dependence; Elevated liver function tests Seen and examined at bedside; 24hour events reviewed; nursing and respiratory care staff consulted; no adverse overnight events reported to me; resting in bed; remains on venti-mask; still delirious; chest tube remains in place Objective Vital Signs - 12hr 07/17/20 07/17/20 07/17/20 03:00 03:30 04:00 Temperature 98.8 F Pulse Rate 115 H 117 H 120 H Pulse Rate [ 115 H From Monitor] Respiratory 34 H 22 41 H Rate Blood Pressure 134/73 134/73 137/78 O2 Sat by Pulse 97 99 100 Oximetry 07/17/20 07/17/20 07/17/20 04:30 04:53 05:00 Temperature Pulse Rate 116 H 117 H 117 H Pulse Rate [ From Monitor] Respiratory 28 H 40 H 35 H Rate Blood Pressure 137/78 137/78 129/52 O2 Sat by Pulse 100 100 99 Oximetry 07/17/20 07/17/20 07/17/20 05:30 06:00 06:30 Temperature Pulse Rate 113 H 112 H 119 H Pulse Rate [ From Monitor] Respiratory 26 H 18 22 Rate Blood Pressure 129/52 130/57 130/57 O2 Sat by Pulse 99 99 100 Oximetry 07/17/20 07/17/20 07/17/20 07:00 07:30 08:00 Temperature 98.2 F Pulse Rate 110 H 108 H 111 H Pulse Rate [ From Monitor] Respiratory 31 H 42 H 38 H Rate Blood Pressure 134/73 134/73 138/77 O2 Sat by Pulse 97 100 99 Oximetry 07/17/20 07/17/20 07/17/20 08:30 08:55 09:00 Temperature Pulse Rate 113 H 123 H 116 H Pulse Rate [ From Monitor] Respiratory 24 40 H 27 H Rate Blood Pressure 138/77 138/77 134/98 O2 Sat by Pulse 99 95 91 Oximetry 07/17/20 07/17/20 07/17/20 09:30 10:00 10:33 Temperature Pulse Rate 124 H 122 H 127 H Pulse Rate [ From Monitor] Respiratory 37 H 33 H 27 H Rate Blood Pressure 134/98 134/98 O2 Sat by Pulse 93 97 90 Oximetry 07/17/20 07/17/20 07/17/20 11:00 11:31 12:00 Temperature 99.3 F Pulse Rate 141 H 137 H Pulse Rate [ From Monitor] Respiratory 35 H 35 H 38 H Rate Blood Pressure 123/74 123/74 O2 Sat by Pulse 88 90 Oximetry 07/17/20 07/17/20 07/17/20 12:01 12:31 13:00 Temperature Pulse Rate 125 H 113 H 113 H Pulse Rate [ From Monitor] Respiratory 20 21 21 Rate Blood Pressure 128/86 128/86 124/80 O2 Sat by Pulse 92 99 99 Oximetry 07/17/20 07/17/20 13:31 14:01 Temperature Pulse Rate 111 H 116 H Pulse Rate [ From Monitor] Respiratory 20 24 Rate Blood Pressure 124/80 119/74 O2 Sat by Pulse 100 100 Oximetry Constitutional: no acute distress, other (middle aged obese male with mildly increased respiratory effort at rest ) Eyes: non-icteric ENT: oropharynx moist, other (extubated) Neck: supple, no JVD Effort: mildly labored Ascultation: Bilateral: diminished breath sounds, rhonchi (scant), other (right chest tube) Percussion: Bilateral: not dull Cardiovascular: regular rate and rhythm, other (No R/M) Gastrointestinal: normoactive bowel sounds, soft, non-tender, non-distended (protuberant), other (distended and firm) Integumentary: normal Extremities: no cyanosis, no edema, pulses normal, no ischemia or petechiae Neurologic: non-focal exam (non focal grossly; weak), pupils equal and round, CN II-XII normal, motor strength normal and (very weak ) Psychiatric: mood appropriate, affect normal CBC and BMP: 07/18/20 08:47 07/18/20 08:47 ABG, PT/INR, D-dimer: ABG ABG pH 7.477 (7.320-7.450) H 07/13/20 13:52 POC ABG pCO2 54.4 mmHg (32.0-48.0) H 07/13/20 13:52 ABG pCO2 53.1 mm Hg 07/08/20 Unknown POC ABG pO2 126.8 mmHg (83-108) H 07/13/20 13:52 ABG pO2 75.3 mm Hg (80.0-90.0) L 07/08/20 Unknown POC ABG HCO3 39.3 07/13/20 13:52 ABG O2 Saturation 96.5 % (95.0-99.0) 07/08/20 Unknown PT/INR, D-dimer PT 11.8 Sec. (12.2-14.9) L 06/22/20 14:29 INR 0.88 (0.87-1.13) 06/22/20 14:29 D-Dimer 1887.82 ng/mlDDU (0-234) H 05/20/20 08:16 Abnormal lab findings: Abnormal Labs 05/09/20 05/09/20 05/09/20 12:59 12:59 12:59 WBC 11.8 H RBC Hgb Hct MCV 96 H MCH 34 H MCHC 35 H RDW Lymph % (Auto) 6.9 L [place] % (Auto) Lymph # (Auto) 0.8 L [place] # (Auto) Baso # (Auto) Seg Neutrophils % 87.5 H Seg Neuts % (Manual) Lymphocytes % (Manual) Nucleated RBC % Seg Neutrophils # 10.3 H Seg Neutrophils # Man Lymphocytes # (Manual) Monocytes # (Manual) Eosinophils # (Manual) PT INR APTT D-Dimer Heparin Anti-Xa Level ABG pH POC ABG pCO2 POC ABG pO2 ABG pO2 ABG HCO3 ABG O2 Saturation ABG Base Excess ABG Hemoglobin ABG Oxyhemoglobin ABG Sodium ABG Potassium ABG Chloride ABG Glucose Oxyhemoglobin Carboxyhemoglobin Sodium 130 L Potassium 3.5 L Chloride 86.4 L Carbon Dioxide BUN 33 H Creatinine 2.3 H Glucose 156 H POC Glucose Lactic Acid Calcium Magnesium Ferritin Total Bilirubin 3.40 H Direct Bilirubin 1.7 H AST 385 H ALT 134 H Alkaline Phosphatase Lactate Dehydrogenase C-Reactive Protein Total Protein Albumin 3.0 L Triglycerides Lipase Arterial Blood Glucose Arterial Blood Ionized Calcium Urine WBC (Auto) Coronavirus (PCR) SARS-CoV-2 IgG Ab Crossmatch 05/09/20 05/09/20 05/09/20 12:59 12:59 12:59 WBC RBC Hgb Hct MCV MCH MCHC RDW Lymph % (Auto) [place] % (Auto) Lymph # (Auto) [place] # (Auto) Baso # (Auto) Seg Neutrophils % Seg Neuts % (Manual) Lymphocytes % (Manual) Nucleated RBC % Seg Neutrophils # Seg Neutrophils # Man Lymphocytes # (Manual) Monocytes # (Manual) Eosinophils # (Manual) PT INR APTT D-Dimer 3242.51 H Heparin Anti-Xa Level ABG pH POC ABG pCO2 POC ABG pO2 ABG pO2 ABG HCO3 ABG O2 Saturation ABG Base Excess ABG Hemoglobin ABG Oxyhemoglobin ABG Sodium ABG Potassium ABG Chloride ABG Glucose Oxyhemoglobin Carboxyhemoglobin Sodium Potassium Chloride Carbon Dioxide BUN Creatinine Glucose 158 H POC Glucose Lactic Acid 3.50 H* Calcium Magnesium Ferritin Total Bilirubin Direct Bilirubin AST ALT Alkaline Phosphatase Lactate Dehydrogenase 2166 H C-Reactive Protein 39.00 H Total Protein Albumin Triglycerides Lipase Arterial Blood Glucose Arterial Blood Ionized Calcium Urine WBC (Auto) Coronavirus (PCR) SARS-CoV-2 IgG Ab Crossmatch 05/09/20 05/09/20 05/09/20 12:59 14:20 14:20 WBC RBC Hgb Hct MCV MCH MCHC RDW Lymph % (Auto) [place] % (Auto) Lymph # (Auto) [place] # (Auto) Baso # (Auto) Seg Neutrophils % Seg Neuts % (Manual) Lymphocytes % (Manual) Nucleated RBC % Seg Neutrophils # Seg Neutrophils # Man Lymphocytes # (Manual) Monocytes # (Manual) Eosinophils # (Manual) PT INR APTT D-Dimer 2861.78 H Heparin Anti-Xa Level ABG pH POC ABG pCO2 POC ABG pO2 ABG pO2 ABG HCO3 ABG O2 Saturation ABG Base Excess ABG Hemoglobin ABG Oxyhemoglobin ABG Sodium ABG Potassium ABG Chloride ABG Glucose Oxyhemoglobin Carboxyhemoglobin Sodium Potassium Chloride Carbon Dioxide BUN Creatinine Glucose POC Glucose Lactic Acid 2.20 H* Calcium Magnesium Ferritin 73098.0 H Total Bilirubin Direct Bilirubin AST ALT Alkaline Phosphatase Lactate Dehydrogenase C-Reactive Protein Total Protein Albumin Triglycerides Lipase Arterial Blood Glucose Arterial Blood Ionized Calcium Urine WBC (Auto) Coronavirus (PCR) SARS-CoV-2 IgG Ab Crossmatch 05/09/20 05/09/20 05/09/20 14:20 14:20 15:56 WBC RBC Hgb Hct MCV MCH MCHC RDW Lymph % (Auto) [place] % (Auto) Lymph # (Auto) [place] # (Auto) Baso # (Auto) Seg Neutrophils % Seg Neuts % (Manual) Lymphocytes % (Manual) Nucleated RBC % Seg Neutrophils # Seg Neutrophils # Man Lymphocytes # (Manual) Monocytes # (Manual) Eosinophils # (Manual) PT INR APTT D-Dimer Heparin Anti-Xa Level ABG pH POC ABG pCO2 POC ABG pO2 57.3 L ABG pO2 ABG HCO3 ABG O2 Saturation ABG Base Excess ABG Hemoglobin ABG Oxyhemoglobin 86.3 L ABG Sodium 129.9 L ABG Potassium ABG Chloride ABG Glucose 146 H Oxyhemoglobin Carboxyhemoglobin Sodium Potassium Chloride Carbon Dioxide BUN Creatinine Glucose 143 H POC Glucose Lactic Acid Calcium Magnesium Ferritin 75423.0 H Total Bilirubin Direct Bilirubin AST ALT Alkaline Phosphatase Lactate Dehydrogenase 1953 H C-Reactive Protein 33.50 H Total Protein Albumin Triglycerides Lipase Arterial Blood Glucose 146 H Arterial Blood Ionized Calcium 3.9 L Urine WBC (Auto) Coronavirus (PCR) SARS-CoV-2 IgG Ab Crossmatch 05/10/20 05/10/20 05/10/20 10:32 10:32 18:50 WBC 15.4 H RBC Hgb Hct MCV 97 H MCH 33 H MCHC RDW 13.1 L Lymph % (Auto) [place] % (Auto) Lymph # (Auto) [place] # (Auto) Baso # (Auto) Seg Neutrophils % Seg Neuts % (Manual) 89.0 H Lymphocytes % (Manual) 8.0 L Nucleated RBC % Seg Neutrophils # Seg Neutrophils # Man 13.7 H Lymphocytes # (Manual) Monocytes # (Manual) Eosinophils # (Manual) PT INR APTT D-Dimer Heparin Anti-Xa Level ABG pH POC ABG pCO2 POC ABG pO2 ABG pO2 ABG HCO3 ABG O2 Saturation ABG Base Excess ABG Hemoglobin ABG Oxyhemoglobin ABG Sodium ABG Potassium ABG Chloride ABG Glucose Oxyhemoglobin Carboxyhemoglobin Sodium 136 L Potassium Chloride 97.4 L Carbon Dioxide BUN 37 H Creatinine 1.7 H Glucose 209 H POC Glucose Lactic Acid Calcium Magnesium Ferritin > 2000.0 H Total Bilirubin Direct Bilirubin AST ALT Alkaline Phosphatase Lactate Dehydrogenase C-Reactive Protein Total Protein Albumin Triglycerides Lipase Arterial Blood Glucose Arterial Blood Ionized Calcium Urine WBC (Auto) Coronavirus (PCR) SARS-CoV-2 IgG Ab Crossmatch 05/10/20 05/10/20 05/10/20 18:50 19:00 Unknown WBC RBC Hgb Hct MCV MCH MCHC RDW Lymph % (Auto) [place] % (Auto) Lymph # (Auto) [place] # (Auto) Baso # (Auto) Seg Neutrophils % Seg Neuts % (Manual) Lymphocytes % (Manual) Nucleated RBC % Seg Neutrophils # Seg Neutrophils # Man Lymphocytes # (Manual) Monocytes # (Manual) Eosinophils # (Manual) PT INR APTT D-Dimer > 39929 H Heparin Anti-Xa Level ABG pH POC ABG pCO2 POC ABG pO2 ABG pO2 ABG HCO3 ABG O2 Saturation ABG Base Excess ABG Hemoglobin ABG Oxyhemoglobin ABG Sodium ABG Potassium ABG Chloride ABG Glucose Oxyhemoglobin Carboxyhemoglobin Sodium Potassium Chloride Carbon Dioxide BUN Creatinine Glucose POC Glucose Lactic Acid Calcium Magnesium Ferritin Total Bilirubin Direct Bilirubin AST ALT Alkaline Phosphatase Lactate Dehydrogenase 1879 H C-Reactive Protein 24.80 H Total Protein Albumin Triglycerides Lipase Arterial Blood Glucose Arterial Blood Ionized Calcium Urine WBC (Auto) 11.0 H Coronavirus (PCR) SARS-CoV-2 IgG Ab Crossmatch 05/10/20 05/11/20 05/11/20 Unknown 07:30 07:30 WBC RBC Hgb Hct MCV MCH MCHC RDW Lymph % (Auto) [place] % (Auto) Lymph # (Auto) [place] # (Auto) Baso # (Auto) Seg Neutrophils % Seg Neuts % (Manual) Lymphocytes % (Manual) Nucleated RBC % Seg Neutrophils # Seg Neutrophils # Man Lymphocytes # (Manual) Monocytes # (Manual) Eosinophils # (Manual) PT INR APTT D-Dimer > 2000 H Heparin Anti-Xa Level ABG pH POC ABG pCO2 POC ABG pO2 ABG pO2 ABG HCO3 ABG O2 Saturation ABG Base Excess ABG Hemoglobin ABG Oxyhemoglobin ABG Sodium ABG Potassium ABG Chloride ABG Glucose Oxyhemoglobin Carboxyhemoglobin Sodium Potassium Chloride 96.3 L Carbon Dioxide BUN 36 H Creatinine Glucose 161 H POC Glucose Lactic Acid Calcium 8.3 L Magnesium Ferritin Total Bilirubin 1.50 H Direct Bilirubin 0.6 H AST 178 H ALT 111 H Alkaline Phosphatase Lactate Dehydrogenase C-Reactive Protein Total Protein Albumin 3.0 L Triglycerides Lipase Arterial Blood Glucose Arterial Blood Ionized Calcium Urine WBC (Auto) Coronavirus (PCR) Positive A SARS-CoV-2 IgG Ab Crossmatch 05/11/20 05/11/20 05/11/20 07:30 07:30 07:30 WBC RBC Hgb Hct MCV MCH MCHC RDW Lymph % (Auto) [place] % (Auto) Lymph # (Auto) [place] # (Auto) Baso # (Auto) Seg Neutrophils % Seg Neuts % (Manual) Lymphocytes % (Manual) Nucleated RBC % Seg Neutrophils # Seg Neutrophils # Man Lymphocytes # (Manual) Monocytes # (Manual) Eosinophils # (Manual) PT INR APTT D-Dimer Heparin Anti-Xa Level ABG pH POC ABG pCO2 POC ABG pO2 ABG pO2 ABG HCO3 ABG O2 Saturation ABG Base Excess ABG Hemoglobin ABG Oxyhemoglobin ABG Sodium ABG Potassium ABG Chloride ABG Glucose Oxyhemoglobin Carboxyhemoglobin Sodium Potassium Chloride Carbon Dioxide BUN Creatinine Glucose POC Glucose Lactic Acid Calcium Magnesium Ferritin 13312.0 H Total Bilirubin Direct Bilirubin AST ALT Alkaline Phosphatase Lactate Dehydrogenase 1523 H C-Reactive Protein 12.90 H Total Protein Albumin Triglycerides Lipase Arterial Blood Glucose Arterial Blood Ionized Calcium Urine WBC (Auto) Coronavirus (PCR) SARS-CoV-2 IgG Ab Reactive A Crossmatch 05/13/20 05/13/20 05/15/20 05:20 05:20 08:15 WBC RBC Hgb Hct MCV MCH MCHC RDW Lymph % (Auto) [place] % (Auto) Lymph # (Auto) [place] # (Auto) Baso # (Auto) Seg Neutrophils % Seg Neuts % (Manual) Lymphocytes % (Manual) Nucleated RBC % Seg Neutrophils # Seg Neutrophils # Man Lymphocytes # (Manual) Monocytes # (Manual) Eosinophils # (Manual) PT INR APTT D-Dimer > 62068 H 5318.28 H Heparin Anti-Xa Level ABG pH POC ABG pCO2 POC ABG pO2 ABG pO2 ABG HCO3 ABG O2 Saturation ABG Base Excess ABG Hemoglobin ABG Oxyhemoglobin ABG Sodium ABG Potassium ABG Chloride ABG Glucose Oxyhemoglobin Carboxyhemoglobin Sodium Potassium Chloride Carbon Dioxide 32 H BUN 30 H Creatinine Glucose 156 H POC Glucose Lactic Acid Calcium Magnesium 2.60 H Ferritin Total Bilirubin 1.40 H Direct Bilirubin AST 121 H ALT 119 H Alkaline Phosphatase Lactate Dehydrogenase 957 H C-Reactive Protein 4.00 H Total Protein Albumin 3.0 L Triglycerides Lipase Arterial Blood Glucose Arterial Blood Ionized Calcium Urine WBC (Auto) Coronavirus (PCR) SARS-CoV-2 IgG Ab Crossmatch 05/15/20 05/15/20 05/15/20 08:15 08:15 08:15 WBC 12.4 H RBC Hgb Hct MCV 98 H MCH 33 H MCHC RDW Lymph % (Auto) 9.7 L [place] % (Auto) Lymph # (Auto) [place] # (Auto) Baso # (Auto) Seg Neutrophils % 86.8 H Seg Neuts % (Manual) Lymphocytes % (Manual) Nucleated RBC % Seg Neutrophils # 10.8 H Seg Neutrophils # Man Lymphocytes # (Manual) Monocytes # (Manual) Eosinophils # (Manual) PT INR APTT D-Dimer Heparin Anti-Xa Level ABG pH POC ABG pCO2 POC ABG pO2 ABG pO2 ABG HCO3 ABG O2 Saturation ABG Base Excess ABG Hemoglobin ABG Oxyhemoglobin ABG Sodium ABG Potassium ABG Chloride ABG Glucose Oxyhemoglobin Carboxyhemoglobin Sodium Potassium Chloride 94.8 L Carbon Dioxide 32 H BUN 22 H Creatinine Glucose 115 H POC Glucose Lactic Acid Calcium 8.3 L Magnesium Ferritin 2494.0 H Total Bilirubin Direct Bilirubin AST 73 H ALT 121 H Alkaline Phosphatase Lactate Dehydrogenase 835 H C-Reactive Protein 3.40 H Total Protein 6.1 L Albumin 3.0 L Triglycerides Lipase Arterial Blood Glucose Arterial Blood Ionized Calcium Urine WBC (Auto) Coronavirus (PCR) SARS-CoV-2 IgG Ab Crossmatch 05/17/20 05/17/20 05/17/20 05:50 05:50 05:50 WBC RBC Hgb Hct MCV MCH MCHC RDW Lymph % (Auto) [place] % (Auto) Lymph # (Auto) [place] # (Auto) Baso # (Auto) Seg Neutrophils % Seg Neuts % (Manual) Lymphocytes % (Manual) Nucleated RBC % Seg Neutrophils # Seg Neutrophils # Man Lymphocytes # (Manual) Monocytes # (Manual) Eosinophils # (Manual) PT INR APTT D-Dimer 2911.42 H Heparin Anti-Xa Level ABG pH POC ABG pCO2 POC ABG pO2 ABG pO2 ABG HCO3 ABG O2 Saturation ABG Base Excess ABG Hemoglobin ABG Oxyhemoglobin ABG Sodium ABG Potassium ABG Chloride ABG Glucose Oxyhemoglobin Carboxyhemoglobin Sodium 136 L Potassium Chloride 96.0 L Carbon Dioxide 34 H BUN 22 H Creatinine Glucose 140 H POC Glucose Lactic Acid Calcium Magnesium Ferritin 2082.0 H Total Bilirubin Direct Bilirubin AST ALT 75 H Alkaline Phosphatase Lactate Dehydrogenase 601 H C-Reactive Protein 2.70 H Total Protein Albumin 2.9 L Triglycerides Lipase Arterial Blood Glucose Arterial Blood Ionized Calcium Urine WBC (Auto) Coronavirus (PCR) SARS-CoV-2 IgG Ab Crossmatch 05/17/20 05/18/20 05/20/20 05:50 12:22 08:16 WBC RBC Hgb Hct MCV 98 H MCH 33 H MCHC RDW Lymph % (Auto) 8.0 L [place] % (Auto) Lymph # (Auto) 0.8 L [place] # (Auto) Baso # (Auto) Seg Neutrophils % 89.3 H Seg Neuts % (Manual) Lymphocytes % (Manual) Nucleated RBC % Seg Neutrophils # 8.8 H Seg Neutrophils # Man Lymphocytes # (Manual) Monocytes # (Manual) Eosinophils # (Manual) PT INR APTT D-Dimer 1887.82 H Heparin Anti-Xa Level ABG pH POC ABG pCO2 POC ABG pO2 ABG pO2 ABG HCO3 ABG O2 Saturation ABG Base Excess ABG Hemoglobin ABG Oxyhemoglobin ABG Sodium ABG Potassium ABG Chloride ABG Glucose Oxyhemoglobin Carboxyhemoglobin Sodium Potassium Chloride Carbon Dioxide BUN Creatinine Glucose POC Glucose 178 H Lactic Acid Calcium Magnesium Ferritin Total Bilirubin Direct Bilirubin AST ALT Alkaline Phosphatase Lactate Dehydrogenase C-Reactive Protein Total Protein Albumin Triglycerides Lipase Arterial Blood Glucose Arterial Blood Ionized Calcium Urine WBC (Auto) Coronavirus (PCR) SARS-CoV-2 IgG Ab Crossmatch 05/20/20 05/20/20 05/21/20 08:16 08:16 21:10 WBC RBC Hgb Hct MCV MCH MCHC RDW Lymph % (Auto) [place] % (Auto) Lymph # (Auto) [place] # (Auto) Baso # (Auto) Seg Neutrophils % Seg Neuts % (Manual) Lymphocytes % (Manual) Nucleated RBC % Seg Neutrophils # Seg Neutrophils # Man Lymphocytes # (Manual) Monocytes # (Manual) Eosinophils # (Manual) PT INR APTT D-Dimer Heparin Anti-Xa Level ABG pH 7.483 H POC ABG pCO2 POC ABG pO2 ABG pO2 50.0 L ABG HCO3 27.0 H ABG O2 Saturation 86.2 L ABG Base Excess 3.7 H ABG Hemoglobin ABG Oxyhemoglobin ABG Sodium ABG Potassium ABG Chloride ABG Glucose Oxyhemoglobin 84.2 L Carboxyhemoglobin Sodium Potassium Chloride Carbon Dioxide BUN Creatinine Glucose POC Glucose Lactic Acid Calcium Magnesium Ferritin 1960.0 H Total Bilirubin Direct Bilirubin AST ALT Alkaline Phosphatase Lactate Dehydrogenase 705 H C-Reactive Protein 3.10 H Total Protein Albumin Triglycerides Lipase Arterial Blood Glucose Arterial Blood Ionized Calcium Urine WBC (Auto) Coronavirus (PCR) SARS-CoV-2 IgG Ab Crossmatch 05/22/20 05/22/20 05/22/20 04:01 07:53 07:53 WBC 19.2 H RBC Hgb Hct MCV 98 H MCH 34 H MCHC RDW Lymph % (Auto) [place] % (Auto) Lymph # (Auto) [place] # (Auto) Baso # (Auto) Seg Neutrophils % Seg Neuts % (Manual) 96.0 H Lymphocytes % (Manual) 1.0 L Nucleated RBC % Seg Neutrophils # Seg Neutrophils # Man 18.4 H Lymphocytes # (Manual) 0.2 L Monocytes # (Manual) Eosinophils # (Manual) PT INR APTT D-Dimer Heparin Anti-Xa Level ABG pH POC ABG pCO2 53.8 H POC ABG pO2 125.5 H ABG pO2 ABG HCO3 ABG O2 Saturation ABG Base Excess ABG Hemoglobin ABG Oxyhemoglobin ABG Sodium 131.8 L ABG Potassium 4.8 H ABG Chloride 94.0 L ABG Glucose 163 H Oxyhemoglobin Carboxyhemoglobin Sodium 131 L Potassium Chloride 93.4 L Carbon Dioxide BUN 40 H Creatinine Glucose 176 H POC Glucose Lactic Acid Calcium Magnesium 2.70 H Ferritin Total Bilirubin 1.80 H Direct Bilirubin AST 45 H ALT 116 H Alkaline Phosphatase 181 H Lactate Dehydrogenase C-Reactive Protein Total Protein Albumin 2.6 L Triglycerides Lipase Arterial Blood Glucose 163 H Arterial Blood Ionized Calcium 4.5 L Urine WBC (Auto) Coronavirus (PCR) SARS-CoV-2 IgG Ab Crossmatch 05/23/20 05/24/20 05/24/20 04:17 03:07 04:08 WBC RBC Hgb Hct MCV MCH MCHC RDW Lymph % (Auto) [place] % (Auto) Lymph # (Auto) [place] # (Auto) Baso # (Auto) Seg Neutrophils % Seg Neuts % (Manual) Lymphocytes % (Manual) Nucleated RBC % Seg Neutrophils # Seg Neutrophils # Man Lymphocytes # (Manual) Monocytes # (Manual) Eosinophils # (Manual) PT INR APTT D-Dimer Heparin Anti-Xa Level ABG pH 7.328 L POC ABG pCO2 POC ABG pO2 ABG pO2 72.8 L 73.4 L ABG HCO3 31.0 H 34.0 H ABG O2 Saturation 93.5 L ABG Base Excess 3.5 H 7.7 H ABG Hemoglobin 13.3 L 12.1 L ABG Oxyhemoglobin ABG Sodium ABG Potassium ABG Chloride ABG Glucose Oxyhemoglobin 91.5 L 94.3 L Carboxyhemoglobin Sodium Potassium Chloride Carbon Dioxide BUN Creatinine Glucose POC Glucose 155 H Lactic Acid Calcium Magnesium Ferritin Total Bilirubin Direct Bilirubin AST ALT Alkaline Phosphatase Lactate Dehydrogenase C-Reactive Protein Total Protein Albumin Triglycerides Lipase Arterial Blood Glucose Arterial Blood Ionized Calcium Urine WBC (Auto) Coronavirus (PCR) SARS-CoV-2 IgG Ab Crossmatch 1105/24/20 05/24/20 09:33 12:21 17:52 WBC RBC Hgb Hct MCV MCH MCHC RDW Lymph % (Auto) [place] % (Auto) Lymph # (Auto) [place] # (Auto) Baso # (Auto) Seg Neutrophils % Seg Neuts % (Manual) Lymphocytes % (Manual) Nucleated RBC % Seg Neutrophils # Seg Neutrophils # Man Lymphocytes # (Manual) Monocytes # (Manual) Eosinophils # (Manual) PT INR APTT D-Dimer Heparin Anti-Xa Level ABG pH POC ABG pCO2 POC ABG pO2 ABG pO2 ABG HCO3 ABG O2 Saturation ABG Base Excess ABG Hemoglobin ABG Oxyhemoglobin ABG Sodium ABG Potassium ABG Chloride ABG Glucose Oxyhemoglobin Carboxyhemoglobin Sodium Potassium Chloride Carbon Dioxide 34 H D BUN 28 H Creatinine 0.7 L Glucose 168 H POC Glucose 173 H 164 H Lactic Acid Calcium Magnesium Ferritin Total Bilirubin Direct Bilirubin AST ALT Alkaline Phosphatase Lactate Dehydrogenase C-Reactive Protein Total Protein Albumin Triglycerides Lipase Arterial Blood Glucose Arterial Blood Ionized Calcium Urine WBC (Auto) Coronavirus (PCR) SARS-CoV-2 IgG Ab Crossmatch 05/24/20 05/25/20 05/25/20 23:47 04:29 05:46 WBC RBC Hgb Hct MCV MCH MCHC RDW Lymph % (Auto) [place] % (Auto) Lymph # (Auto) [place] # (Auto) Baso # (Auto) Seg Neutrophils % Seg Neuts % (Manual) Lymphocytes % (Manual) Nucleated RBC % Seg Neutrophils # Seg Neutrophils # Man Lymphocytes # (Manual) Monocytes # (Manual) Eosinophils # (Manual) PT INR APTT D-Dimer Heparin Anti-Xa Level ABG pH POC ABG pCO2 68.6 H POC ABG pO2 ABG pO2 ABG HCO3 ABG O2 Saturation ABG Base Excess ABG Hemoglobin ABG Oxyhemoglobin ABG Sodium ABG Potassium 4.7 H ABG Chloride ABG Glucose 226 H Oxyhemoglobin Carboxyhemoglobin Sodium Potassium Chloride Carbon Dioxide BUN Creatinine Glucose POC Glucose 171 H 201 H Lactic Acid Calcium Magnesium Ferritin Total Bilirubin Direct Bilirubin AST ALT Alkaline Phosphatase Lactate Dehydrogenase C-Reactive Protein Total Protein Albumin Triglycerides Lipase Arterial Blood Glucose 226 H Arterial Blood Ionized Calcium Urine WBC (Auto) Coronavirus (PCR) SARS-CoV-2 IgG Ab Crossmatch 05/25/20 05/25/20 05/25/20 08:37 08:37 12:38 WBC 12.0 H RBC 3.64 L Hgb Hct MCV 99 H MCH 33 H MCHC RDW Lymph % (Auto) [place] % (Auto) Lymph # (Auto) [place] # (Auto) Baso # (Auto) Seg Neutrophils % Seg Neuts % (Manual) Lymphocytes % (Manual) Nucleated RBC % Seg Neutrophils # Seg Neutrophils # Man Lymphocytes # (Manual) Monocytes # (Manual) Eosinophils # (Manual) PT INR APTT D-Dimer Heparin Anti-Xa Level ABG pH POC ABG pCO2 POC ABG pO2 ABG pO2 ABG HCO3 ABG O2 Saturation ABG Base Excess ABG Hemoglobin ABG Oxyhemoglobin ABG Sodium ABG Potassium ABG Chloride ABG Glucose Oxyhemoglobin Carboxyhemoglobin Sodium Potassium Chloride 97.3 L Carbon Dioxide 35 H BUN 25 H Creatinine 0.7 L Glucose 191 H POC Glucose 182 H Lactic Acid Calcium Magnesium Ferritin Total Bilirubin Direct Bilirubin AST ALT Alkaline Phosphatase Lactate Dehydrogenase C-Reactive Protein Total Protein Albumin Triglycerides Lipase Arterial Blood Glucose Arterial Blood Ionized Calcium Urine WBC (Auto) Coronavirus (PCR) SARS-CoV-2 IgG Ab Crossmatch 05/25/20 05/26/20 05/26/20 18:16 00:06 04:50 WBC RBC Hgb Hct MCV MCH MCHC RDW Lymph % (Auto) [place] % (Auto) Lymph # (Auto) [place] # (Auto) Baso # (Auto) Seg Neutrophils % Seg Neuts % (Manual) Lymphocytes % (Manual) Nucleated RBC % Seg Neutrophils # Seg Neutrophils # Man Lymphocytes # (Manual) Monocytes # (Manual) Eosinophils # (Manual) PT INR APTT D-Dimer Heparin Anti-Xa Level ABG pH POC ABG pCO2 POC ABG pO2 ABG pO2 221.5 H ABG HCO3 40.4 H ABG O2 Saturation 99.3 H ABG Base Excess 12.8 H ABG Hemoglobin 10.4 L ABG Oxyhemoglobin ABG Sodium ABG Potassium ABG Chloride ABG Glucose Oxyhemoglobin Carboxyhemoglobin Sodium Potassium Chloride Carbon Dioxide BUN Creatinine Glucose POC Glucose 176 H 152 H Lactic Acid Calcium Magnesium Ferritin Total Bilirubin Direct Bilirubin AST ALT Alkaline Phosphatase Lactate Dehydrogenase C-Reactive Protein Total Protein Albumin Triglycerides Lipase Arterial Blood Glucose Arterial Blood Ionized Calcium Urine WBC (Auto) Coronavirus (PCR) SARS-CoV-2 IgG Ab Crossmatch 05/26/20 05/26/20 05/26/20 06:11 07:51 07:51 WBC 13.4 H RBC 3.64 L Hgb Hct MCV 98 H MCH 33 H MCHC RDW Lymph % (Auto) [place] % (Auto) Lymph # (Auto) [place] # (Auto) Baso # (Auto) Seg Neutrophils % Seg Neuts % (Manual) Lymphocytes % (Manual) Nucleated RBC % Seg Neutrophils # Seg Neutrophils # Man Lymphocytes # (Manual) Monocytes # (Manual) Eosinophils # (Manual) PT INR APTT D-Dimer Heparin Anti-Xa Level ABG pH POC ABG pCO2 POC ABG pO2 ABG pO2 ABG HCO3 ABG O2 Saturation ABG Base Excess ABG Hemoglobin ABG Oxyhemoglobin ABG Sodium ABG Potassium ABG Chloride ABG Glucose Oxyhemoglobin Carboxyhemoglobin Sodium Potassium Chloride 96.6 L Carbon Dioxide 39 H BUN 29 H Creatinine 0.7 L Glucose 174 H POC Glucose 165 H Lactic Acid Calcium Magnesium Ferritin Total Bilirubin Direct Bilirubin AST ALT Alkaline Phosphatase Lactate Dehydrogenase C-Reactive Protein Total Protein Albumin Triglycerides Lipase Arterial Blood Glucose Arterial Blood Ionized Calcium Urine WBC (Auto) Coronavirus (PCR) SARS-CoV-2 IgG Ab Crossmatch 05/26/20 05/27/20 05/27/20 23:23 03:43 05:29 WBC RBC Hgb Hct MCV MCH MCHC RDW Lymph % (Auto) [place] % (Auto) Lymph # (Auto) [place] # (Auto) Baso # (Auto) Seg Neutrophils % Seg Neuts % (Manual) Lymphocytes % (Manual) Nucleated RBC % Seg Neutrophils # Seg Neutrophils # Man Lymphocytes # (Manual) Monocytes # (Manual) Eosinophils # (Manual) PT INR APTT D-Dimer Heparin Anti-Xa Level ABG pH 7.480 H POC ABG pCO2 52.4 H POC ABG pO2 61.4 L ABG pO2 ABG HCO3 ABG O2 Saturation ABG Base Excess ABG Hemoglobin ABG Oxyhemoglobin ABG Sodium 134.9 L ABG Potassium ABG Chloride 95.0 L ABG Glucose 221 H Oxyhemoglobin Carboxyhemoglobin Sodium Potassium Chloride Carbon Dioxide BUN Creatinine Glucose POC Glucose 169 H 227 H Lactic Acid Calcium Magnesium Ferritin Total Bilirubin Direct Bilirubin AST ALT Alkaline Phosphatase Lactate Dehydrogenase C-Reactive Protein Total Protein Albumin Triglycerides Lipase Arterial Blood Glucose 221 H Arterial Blood Ionized Calcium 4.5 L Urine WBC (Auto) Coronavirus (PCR) SARS-CoV-2 IgG Ab Crossmatch 05/27/20 05/27/20 05/27/20 07:19 12:18 13:50 WBC RBC Hgb Hct MCV MCH MCHC RDW Lymph % (Auto) [place] % (Auto) Lymph # (Auto) [place] # (Auto) Baso # (Auto) Seg Neutrophils % Seg Neuts % (Manual) Lymphocytes % (Manual) Nucleated RBC % Seg Neutrophils # Seg Neutrophils # Man Lymphocytes # (Manual) Monocytes # (Manual) Eosinophils # (Manual) PT INR APTT D-Dimer Heparin Anti-Xa Level ABG pH POC ABG pCO2 POC ABG pO2 ABG pO2 ABG HCO3 ABG O2 Saturation ABG Base Excess ABG Hemoglobin ABG Oxyhemoglobin ABG Sodium ABG Potassium ABG Chloride ABG Glucose Oxyhemoglobin Carboxyhemoglobin Sodium Potassium Chloride Carbon Dioxide BUN Creatinine Glucose POC Glucose 114 H 148 H Lactic Acid Calcium Magnesium Ferritin Total Bilirubin Direct Bilirubin AST ALT Alkaline Phosphatase Lactate Dehydrogenase C-Reactive Protein Total Protein Albumin Triglycerides 247 H Lipase Arterial Blood Glucose Arterial Blood Ionized Calcium Urine WBC (Auto) Coronavirus (PCR) SARS-CoV-2 IgG Ab Crossmatch 05/28/20 05/28/20 05/28/20 00:13 04:16 05:22 WBC RBC Hgb Hct MCV MCH MCHC RDW Lymph % (Auto) [place] % (Auto) Lymph # (Auto) [place] # (Auto) Baso # (Auto) Seg Neutrophils % Seg Neuts % (Manual) Lymphocytes % (Manual) Nucleated RBC % Seg Neutrophils # Seg Neutrophils # Man Lymphocytes # (Manual) Monocytes # (Manual) Eosinophils # (Manual) PT INR APTT D-Dimer Heparin Anti-Xa Level ABG pH POC ABG pCO2 64.4 H POC ABG pO2 60.5 L ABG pO2 ABG HCO3 ABG O2 Saturation ABG Base Excess ABG Hemoglobin ABG Oxyhemoglobin ABG Sodium ABG Potassium ABG Chloride 95.0 L ABG Glucose 209 H Oxyhemoglobin Carboxyhemoglobin Sodium Potassium Chloride Carbon Dioxide BUN Creatinine Glucose POC Glucose 155 H 186 H Lactic Acid Calcium Magnesium Ferritin Total Bilirubin Direct Bilirubin AST ALT Alkaline Phosphatase Lactate Dehydrogenase C-Reactive Protein Total Protein Albumin Triglycerides Lipase Arterial Blood Glucose 209 H Arterial Blood Ionized Calcium Urine WBC (Auto) Coronavirus (PCR) SARS-CoV-2 IgG Ab Crossmatch 05/28/20 05/28/20 05/29/20 12:45 17:39 00:37 WBC RBC Hgb Hct MCV MCH MCHC RDW Lymph % (Auto) [place] % (Auto) Lymph # (Auto) [place] # (Auto) Baso # (Auto) Seg Neutrophils % Seg Neuts % (Manual) Lymphocytes % (Manual) Nucleated RBC % Seg Neutrophils # Seg Neutrophils # Man Lymphocytes # (Manual) Monocytes # (Manual) Eosinophils # (Manual) PT INR APTT D-Dimer Heparin Anti-Xa Level ABG pH POC ABG pCO2 POC ABG pO2 ABG pO2 ABG HCO3 ABG O2 Saturation ABG Base Excess ABG Hemoglobin ABG Oxyhemoglobin ABG Sodium ABG Potassium ABG Chloride ABG Glucose Oxyhemoglobin Carboxyhemoglobin Sodium Potassium Chloride Carbon Dioxide BUN Creatinine Glucose POC Glucose 143 H 164 H 221 H Lactic Acid Calcium Magnesium Ferritin Total Bilirubin Direct Bilirubin AST ALT Alkaline Phosphatase Lactate Dehydrogenase C-Reactive Protein Total Protein Albumin Triglycerides Lipase Arterial Blood Glucose Arterial Blood Ionized Calcium Urine WBC (Auto) Coronavirus (PCR) SARS-CoV-2 IgG Ab Crossmatch 05/29/20 05/29/20 05/29/20 04:15 05:33 12:34 WBC RBC Hgb Hct MCV MCH MCHC RDW Lymph % (Auto) [place] % (Auto) Lymph # (Auto) [place] # (Auto) Baso # (Auto) Seg Neutrophils % Seg Neuts % (Manual) Lymphocytes % (Manual) Nucleated RBC % Seg Neutrophils # Seg Neutrophils # Man Lymphocytes # (Manual) Monocytes # (Manual) Eosinophils # (Manual) PT INR APTT D-Dimer Heparin Anti-Xa Level ABG pH 7.463 H POC ABG pCO2 56.3 H POC ABG pO2 81.2 L ABG pO2 ABG HCO3 ABG O2 Saturation ABG Base Excess ABG Hemoglobin ABG Oxyhemoglobin ABG Sodium ABG Potassium ABG Chloride 96.0 L ABG Glucose 194 H Oxyhemoglobin Carboxyhemoglobin Sodium Potassium Chloride Carbon Dioxide BUN Creatinine Glucose POC Glucose 133 H 221 H Lactic Acid Calcium Magnesium Ferritin Total Bilirubin Direct Bilirubin AST ALT Alkaline Phosphatase Lactate Dehydrogenase C-Reactive Protein Total Protein Albumin Triglycerides Lipase Arterial Blood Glucose 194 H Arterial Blood Ionized Calcium 4.5 L Urine WBC (Auto) Coronavirus (PCR) SARS-CoV-2 IgG Ab Crossmatch 05/29/20 05/30/20 05/30/20 18:07 00:12 05:38 WBC RBC Hgb Hct MCV MCH MCHC RDW Lymph % (Auto) [place] % (Auto) Lymph # (Auto) [place] # (Auto) Baso # (Auto) Seg Neutrophils % Seg Neuts % (Manual) Lymphocytes % (Manual) Nucleated RBC % Seg Neutrophils # Seg Neutrophils # Man Lymphocytes # (Manual) Monocytes # (Manual) Eosinophils # (Manual) PT INR APTT D-Dimer Heparin Anti-Xa Level ABG pH POC ABG pCO2 POC ABG pO2 ABG pO2 ABG HCO3 ABG O2 Saturation ABG Base Excess ABG Hemoglobin ABG Oxyhemoglobin ABG Sodium ABG Potassium ABG Chloride ABG Glucose Oxyhemoglobin Carboxyhemoglobin Sodium Potassium Chloride Carbon Dioxide BUN Creatinine Glucose POC Glucose 162 H 190 H 208 H Lactic Acid Calcium Magnesium Ferritin Total Bilirubin Direct Bilirubin AST ALT Alkaline Phosphatase Lactate Dehydrogenase C-Reactive Protein Total Protein Albumin Triglycerides Lipase Arterial Blood Glucose Arterial Blood Ionized Calcium Urine WBC (Auto) Coronavirus (PCR) SARS-CoV-2 IgG Ab Crossmatch 05/30/20 05/30/20 05/30/20 09:30 11:35 11:54 WBC 12.4 H RBC 3.48 L Hgb 11.3 L Hct 34.6 L MCV 99 H MCH 33 H MCHC RDW Lymph % (Auto) [place] % (Auto) Lymph # (Auto) [place] # (Auto) Baso # (Auto) Seg Neutrophils % Seg Neuts % (Manual) Lymphocytes % (Manual) Nucleated RBC % Seg Neutrophils # Seg Neutrophils # Man Lymphocytes # (Manual) Monocytes # (Manual) Eosinophils # (Manual) PT INR APTT D-Dimer Heparin Anti-Xa Level ABG pH 7.455 H POC ABG pCO2 57.5 H POC ABG pO2 81.5 L ABG pO2 ABG HCO3 ABG O2 Saturation ABG Base Excess ABG Hemoglobin ABG Oxyhemoglobin ABG Sodium ABG Potassium ABG Chloride 96.0 L ABG Glucose 204 H Oxyhemoglobin Carboxyhemoglobin Sodium Potassium Chloride Carbon Dioxide BUN Creatinine Glucose POC Glucose 183 H Lactic Acid Calcium Magnesium Ferritin Total Bilirubin Direct Bilirubin AST ALT Alkaline Phosphatase Lactate Dehydrogenase C-Reactive Protein Total Protein Albumin Triglycerides Lipase Arterial Blood Glucose 204 H Arterial Blood Ionized Calcium Urine WBC (Auto) Coronavirus (PCR) SARS-CoV-2 IgG Ab Crossmatch 05/30/20 05/31/20 05/31/20 18:01 00:10 03:22 WBC RBC Hgb Hct MCV MCH MCHC RDW Lymph % (Auto) [place] % (Auto) Lymph # (Auto) [place] # (Auto) Baso # (Auto) Seg Neutrophils % Seg Neuts % (Manual) Lymphocytes % (Manual) Nucleated RBC % Seg Neutrophils # Seg Neutrophils # Man Lymphocytes # (Manual) Monocytes # (Manual) Eosinophils # (Manual) PT INR APTT D-Dimer Heparin Anti-Xa Level ABG pH POC ABG pCO2 60.4 H POC ABG pO2 71.5 L ABG pO2 ABG HCO3 ABG O2 Saturation ABG Base Excess ABG Hemoglobin ABG Oxyhemoglobin ABG Sodium ABG Potassium ABG Chloride 96.0 L ABG Glucose 169 H Oxyhemoglobin Carboxyhemoglobin Sodium Potassium Chloride Carbon Dioxide BUN Creatinine Glucose POC Glucose 184 H 135 H Lactic Acid Calcium Magnesium Ferritin Total Bilirubin Direct Bilirubin AST ALT Alkaline Phosphatase Lactate Dehydrogenase C-Reactive Protein Total Protein Albumin Triglycerides Lipase Arterial Blood Glucose 169 H Arterial Blood Ionized Calcium 4.5 L Urine WBC (Auto) Coronavirus (PCR) SARS-CoV-2 IgG Ab Crossmatch 05/31/20 05/31/20 05/31/20 05:24 11:18 14:41 WBC RBC Hgb Hct MCV MCH MCHC RDW Lymph % (Auto) [place] % (Auto) Lymph # (Auto) [place] # (Auto) Baso # (Auto) Seg Neutrophils % Seg Neuts % (Manual) Lymphocytes % (Manual) Nucleated RBC % Seg Neutrophils # Seg Neutrophils # Man Lymphocytes # (Manual) Monocytes # (Manual) Eosinophils # (Manual) PT INR APTT D-Dimer Heparin Anti-Xa Level ABG pH POC ABG pCO2 POC ABG pO2 ABG pO2 ABG HCO3 ABG O2 Saturation ABG Base Excess ABG Hemoglobin ABG Oxyhemoglobin ABG Sodium ABG Potassium ABG Chloride ABG Glucose Oxyhemoglobin Carboxyhemoglobin Sodium Potassium Chloride 96.8 L Carbon Dioxide 37 H BUN 31 H Creatinine 0.6 L Glucose 213 H POC Glucose 164 H 208 H Lactic Acid Calcium Magnesium Ferritin Total Bilirubin Direct Bilirubin AST ALT Alkaline Phosphatase Lactate Dehydrogenase C-Reactive Protein Total Protein Albumin Triglycerides Lipase Arterial Blood Glucose Arterial Blood Ionized Calcium Urine WBC (Auto) Coronavirus (PCR) SARS-CoV-2 IgG Ab Crossmatch 05/31/20 05/31/20 06/01/20 17:37 23:47 03:48 WBC RBC Hgb Hct MCV MCH MCHC RDW Lymph % (Auto) [place] % (Auto) Lymph # (Auto) [place] # (Auto) Baso # (Auto) Seg Neutrophils % Seg Neuts % (Manual) Lymphocytes % (Manual) Nucleated RBC % Seg Neutrophils # Seg Neutrophils # Man Lymphocytes # (Manual) Monocytes # (Manual) Eosinophils # (Manual) PT INR APTT D-Dimer Heparin Anti-Xa Level ABG pH POC ABG pCO2 59.7 H POC ABG pO2 73.9 L ABG pO2 ABG HCO3 ABG O2 Saturation ABG Base Excess ABG Hemoglobin ABG Oxyhemoglobin ABG Sodium ABG Potassium ABG Chloride 95.0 L ABG Glucose 256 H Oxyhemoglobin Carboxyhemoglobin Sodium Potassium Chloride Carbon Dioxide BUN Creatinine Glucose POC Glucose 168 H 178 H Lactic Acid Calcium Magnesium Ferritin Total Bilirubin Direct Bilirubin AST ALT Alkaline Phosphatase Lactate Dehydrogenase C-Reactive Protein Total Protein Albumin Triglycerides Lipase Arterial Blood Glucose 256 H Arterial Blood Ionized Calcium Urine WBC (Auto) Coronavirus (PCR) SARS-CoV-2 IgG Ab Crossmatch 06/01/20 06/01/20 06/01/20 05:01 07:47 07:47 WBC 14.4 H RBC 3.46 L Hgb 11.1 L Hct 34.3 L MCV 99 H MCH MCHC RDW Lymph % (Auto) [place] % (Auto) Lymph # (Auto) [place] # (Auto) Baso # (Auto) Seg Neutrophils % Seg Neuts % (Manual) 86.0 H Lymphocytes % (Manual) 9.0 L Nucleated RBC % Seg Neutrophils # Seg Neutrophils # Man 12.4 H Lymphocytes # (Manual) Monocytes # (Manual) Eosinophils # (Manual) PT INR APTT D-Dimer Heparin Anti-Xa Level ABG pH POC ABG pCO2 POC ABG pO2 ABG pO2 ABG HCO3 ABG O2 Saturation ABG Base Excess ABG Hemoglobin ABG Oxyhemoglobin ABG Sodium ABG Potassium ABG Chloride ABG Glucose Oxyhemoglobin Carboxyhemoglobin Sodium Potassium Chloride Carbon Dioxide BUN Creatinine Glucose POC Glucose 197 H Lactic Acid Calcium Magnesium Ferritin Total Bilirubin Direct Bilirubin AST ALT Alkaline Phosphatase Lactate Dehydrogenase C-Reactive Protein Total Protein Albumin Triglycerides 244 H Lipase Arterial Blood Glucose Arterial Blood Ionized Calcium Urine WBC (Auto) Coronavirus (PCR) SARS-CoV-2 IgG Ab Crossmatch 06/01/20 06/01/20 06/01/20 07:47 11:46 18:15 WBC RBC Hgb Hct MCV MCH MCHC RDW Lymph % (Auto) [place] % (Auto) Lymph # (Auto) [place] # (Auto) Baso # (Auto) Seg Neutrophils % Seg Neuts % (Manual) Lymphocytes % (Manual) Nucleated RBC % Seg Neutrophils # Seg Neutrophils # Man Lymphocytes # (Manual) Monocytes # (Manual) Eosinophils # (Manual) PT INR APTT D-Dimer Heparin Anti-Xa Level ABG pH POC ABG pCO2 POC ABG pO2 ABG pO2 ABG HCO3 ABG O2 Saturation ABG Base Excess ABG Hemoglobin ABG Oxyhemoglobin ABG Sodium ABG Potassium ABG Chloride ABG Glucose Oxyhemoglobin Carboxyhemoglobin Sodium Potassium Chloride 95.4 L Carbon Dioxide 35 H BUN 30 H Creatinine 0.5 L Glucose 214 H POC Glucose 181 H 221 H Lactic Acid Calcium Magnesium Ferritin Total Bilirubin Direct Bilirubin AST 54 H ALT 235 H Alkaline Phosphatase Lactate Dehydrogenase C-Reactive Protein Total Protein Albumin 2.9 L Triglycerides Lipase Arterial Blood Glucose Arterial Blood Ionized Calcium Urine WBC (Auto) Coronavirus (PCR) SARS-CoV-2 IgG Ab Crossmatch 06/01/20 06/02/20 06/02/20 23:12 04:00 05:31 WBC RBC Hgb Hct MCV MCH MCHC RDW Lymph % (Auto) [place] % (Auto) Lymph # (Auto) [place] # (Auto) Baso # (Auto) Seg Neutrophils % Seg Neuts % (Manual) Lymphocytes % (Manual) Nucleated RBC % Seg Neutrophils # Seg Neutrophils # Man Lymphocytes # (Manual) Monocytes # (Manual) Eosinophils # (Manual) PT INR APTT D-Dimer Heparin Anti-Xa Level ABG pH 7.465 H POC ABG pCO2 POC ABG pO2 ABG pO2 203.4 H ABG HCO3 41.2 H ABG O2 Saturation 99.3 H ABG Base Excess 15.1 H ABG Hemoglobin 11.5 L ABG Oxyhemoglobin ABG Sodium ABG Potassium ABG Chloride ABG Glucose Oxyhemoglobin Carboxyhemoglobin Sodium Potassium Chloride Carbon Dioxide BUN Creatinine Glucose POC Glucose 197 H 184 H Lactic Acid Calcium Magnesium Ferritin Total Bilirubin Direct Bilirubin AST ALT Alkaline Phosphatase Lactate Dehydrogenase C-Reactive Protein Total Protein Albumin Triglycerides Lipase Arterial Blood Glucose Arterial Blood Ionized Calcium Urine WBC (Auto) Coronavirus (PCR) SARS-CoV-2 IgG Ab Crossmatch 06/02/20 06/02/20 06/02/20 11:49 18:06 23:00 WBC RBC Hgb Hct MCV MCH MCHC RDW Lymph % (Auto) [place] % (Auto) Lymph # (Auto) [place] # (Auto) Baso # (Auto) Seg Neutrophils % Seg Neuts % (Manual) Lymphocytes % (Manual) Nucleated RBC % Seg Neutrophils # Seg Neutrophils # Man Lymphocytes # (Manual) Monocytes # (Manual) Eosinophils # (Manual) PT INR APTT D-Dimer Heparin Anti-Xa Level ABG pH POC ABG pCO2 POC ABG pO2 ABG pO2 ABG HCO3 ABG O2 Saturation ABG Base Excess ABG Hemoglobin ABG Oxyhemoglobin ABG Sodium ABG Potassium ABG Chloride ABG Glucose Oxyhemoglobin Carboxyhemoglobin Sodium Potassium Chloride Carbon Dioxide BUN Creatinine Glucose POC Glucose 195 H 177 H 228 H Lactic Acid Calcium Magnesium Ferritin Total Bilirubin Direct Bilirubin AST ALT Alkaline Phosphatase Lactate Dehydrogenase C-Reactive Protein Total Protein Albumin Triglycerides Lipase Arterial Blood Glucose Arterial Blood Ionized Calcium Urine WBC (Auto) Coronavirus (PCR) SARS-CoV-2 IgG Ab Crossmatch 06/03/20 06/03/20 06/03/20 03:58 05:19 12:21 WBC RBC Hgb Hct MCV MCH MCHC RDW Lymph % (Auto) [place] % (Auto) Lymph # (Auto) [place] # (Auto) Baso # (Auto) Seg Neutrophils % Seg Neuts % (Manual) Lymphocytes % (Manual) Nucleated RBC % Seg Neutrophils # Seg Neutrophils # Man Lymphocytes # (Manual) Monocytes # (Manual) Eosinophils # (Manual) PT INR APTT D-Dimer Heparin Anti-Xa Level ABG pH POC ABG pCO2 POC ABG pO2 ABG pO2 171.0 H ABG HCO3 42.8 H ABG O2 Saturation ABG Base Excess 15.6 H ABG Hemoglobin 12.3 L ABG Oxyhemoglobin ABG Sodium ABG Potassium ABG Chloride ABG Glucose Oxyhemoglobin Carboxyhemoglobin Sodium Potassium Chloride Carbon Dioxide BUN Creatinine Glucose POC Glucose 122 H 207 H Lactic Acid Calcium Magnesium Ferritin Total Bilirubin Direct Bilirubin AST ALT Alkaline Phosphatase Lactate Dehydrogenase C-Reactive Protein Total Protein Albumin Triglycerides Lipase Arterial Blood Glucose Arterial Blood Ionized Calcium Urine WBC (Auto) Coronavirus (PCR) SARS-CoV-2 IgG Ab Crossmatch 06/03/20 06/03/20 06/04/20 17:27 23:50 03:55 WBC RBC Hgb Hct MCV MCH MCHC RDW Lymph % (Auto) [place] % (Auto) Lymph # (Auto) [place] # (Auto) Baso # (Auto) Seg Neutrophils % Seg Neuts % (Manual) Lymphocytes % (Manual) Nucleated RBC % Seg Neutrophils # Seg Neutrophils # Man Lymphocytes # (Manual) Monocytes # (Manual) Eosinophils # (Manual) PT INR APTT D-Dimer Heparin Anti-Xa Level ABG pH POC ABG pCO2 POC ABG pO2 ABG pO2 117.2 H ABG HCO3 42.4 H ABG O2 Saturation ABG Base Excess 15.3 H ABG Hemoglobin 10.5 L ABG Oxyhemoglobin ABG Sodium ABG Potassium ABG Chloride ABG Glucose Oxyhemoglobin Carboxyhemoglobin Sodium Potassium Chloride Carbon Dioxide BUN Creatinine Glucose POC Glucose 157 H 214 H Lactic Acid Calcium Magnesium Ferritin Total Bilirubin Direct Bilirubin AST ALT Alkaline Phosphatase Lactate Dehydrogenase C-Reactive Protein Total Protein Albumin Triglycerides Lipase Arterial Blood Glucose Arterial Blood Ionized Calcium Urine WBC (Auto) Coronavirus (PCR) SARS-CoV-2 IgG Ab Crossmatch 06/04/20 06/04/20 06/04/20 05:49 11:41 17:30 WBC RBC Hgb Hct MCV MCH MCHC RDW Lymph % (Auto) [place] % (Auto) Lymph # (Auto) [place] # (Auto) Baso # (Auto) Seg Neutrophils % Seg Neuts % (Manual) Lymphocytes % (Manual) Nucleated RBC % Seg Neutrophils # Seg Neutrophils # Man Lymphocytes # (Manual) Monocytes # (Manual) Eosinophils # (Manual) PT INR APTT D-Dimer Heparin Anti-Xa Level ABG pH POC ABG pCO2 POC ABG pO2 ABG pO2 ABG HCO3 ABG O2 Saturation ABG Base Excess ABG Hemoglobin ABG Oxyhemoglobin ABG Sodium ABG Potassium ABG Chloride ABG Glucose Oxyhemoglobin Carboxyhemoglobin Sodium Potassium Chloride Carbon Dioxide BUN Creatinine Glucose POC Glucose 149 H 233 H 156 H Lactic Acid Calcium Magnesium Ferritin Total Bilirubin Direct Bilirubin AST ALT Alkaline Phosphatase Lactate Dehydrogenase C-Reactive Protein Total Protein Albumin Triglycerides Lipase Arterial Blood Glucose Arterial Blood Ionized Calcium Urine WBC (Auto) Coronavirus (PCR) SARS-CoV-2 IgG Ab Crossmatch 06/04/20 06/04/20 06/04/20 19:01 20:53 23:41 WBC RBC 3.18 L Hgb 10.8 L Hct 31.8 L MCV 100 H MCH 34 H MCHC RDW Lymph % (Auto) [place] % (Auto) Lymph # (Auto) [place] # (Auto) Baso # (Auto) Seg Neutrophils % Seg Neuts % (Manual) 86.0 H Lymphocytes % (Manual) 10.0 L Nucleated RBC % 1.0 H Seg Neutrophils # Seg Neutrophils # Man 8.5 H Lymphocytes # (Manual) 1.0 L Monocytes # (Manual) Eosinophils # (Manual) PT INR APTT D-Dimer Heparin Anti-Xa Level ABG pH POC ABG pCO2 POC ABG pO2 ABG pO2 ABG HCO3 ABG O2 Saturation ABG Base Excess ABG Hemoglobin ABG Oxyhemoglobin ABG Sodium ABG Potassium ABG Chloride ABG Glucose Oxyhemoglobin Carboxyhemoglobin Sodium Potassium 3.4 L D Chloride 96.5 L Carbon Dioxide 41 H* BUN 27 H Creatinine 0.5 L Glucose 173 H POC Glucose 217 H Lactic Acid Calcium Magnesium Ferritin Total Bilirubin Direct Bilirubin AST ALT Alkaline Phosphatase Lactate Dehydrogenase C-Reactive Protein Total Protein Albumin Triglycerides Lipase Arterial Blood Glucose Arterial Blood Ionized Calcium Urine WBC (Auto) Coronavirus (PCR) SARS-CoV-2 IgG Ab Crossmatch 06/05/20 06/05/20 06/05/20 06:05 11:54 12:35 WBC RBC Hgb Hct MCV MCH MCHC RDW Lymph % (Auto) [place] % (Auto) Lymph # (Auto) [place] # (Auto) Baso # (Auto) Seg Neutrophils % Seg Neuts % (Manual) Lymphocytes % (Manual) Nucleated RBC % Seg Neutrophils # Seg Neutrophils # Man Lymphocytes # (Manual) Monocytes # (Manual) Eosinophils # (Manual) PT INR APTT D-Dimer Heparin Anti-Xa Level ABG pH POC ABG pCO2 POC ABG pO2 ABG pO2 127.9 H ABG HCO3 41.1 H ABG O2 Saturation ABG Base Excess 13.0 H ABG Hemoglobin 13.4 L ABG Oxyhemoglobin ABG Sodium ABG Potassium ABG Chloride ABG Glucose Oxyhemoglobin Carboxyhemoglobin Sodium Potassium Chloride Carbon Dioxide BUN Creatinine Glucose POC Glucose 137 H 211 H Lactic Acid Calcium Magnesium Ferritin Total Bilirubin Direct Bilirubin AST ALT Alkaline Phosphatase Lactate Dehydrogenase C-Reactive Protein Total Protein Albumin Triglycerides Lipase Arterial Blood Glucose Arterial Blood Ionized Calcium Urine WBC (Auto) Coronavirus (PCR) SARS-CoV-2 IgG Ab Crossmatch 06/05/20 06/05/20 06/06/20 17:03 23:49 04:42 WBC RBC Hgb Hct MCV MCH MCHC RDW Lymph % (Auto) [place] % (Auto) Lymph # (Auto) [place] # (Auto) Baso # (Auto) Seg Neutrophils % Seg Neuts % (Manual) Lymphocytes % (Manual) Nucleated RBC % Seg Neutrophils # Seg Neutrophils # Man Lymphocytes # (Manual) Monocytes # (Manual) Eosinophils # (Manual) PT INR APTT D-Dimer Heparin Anti-Xa Level ABG pH POC ABG pCO2 56.1 H POC ABG pO2 52.5 L ABG pO2 ABG HCO3 ABG O2 Saturation ABG Base Excess ABG Hemoglobin 11.7 L ABG Oxyhemoglobin ABG Sodium ABG Potassium 3.3 L ABG Chloride 95.0 L ABG Glucose 156 H Oxyhemoglobin Carboxyhemoglobin Sodium Potassium Chloride Carbon Dioxide BUN Creatinine Glucose POC Glucose 159 H 194 H Lactic Acid Calcium Magnesium Ferritin Total Bilirubin Direct Bilirubin AST ALT Alkaline Phosphatase Lactate Dehydrogenase C-Reactive Protein Total Protein Albumin Triglycerides Lipase Arterial Blood Glucose 156 H Arterial Blood Ionized Calcium Urine WBC (Auto) Coronavirus (PCR) SARS-CoV-2 IgG Ab Crossmatch 06/06/20 06/06/20 06/06/20 05:57 12:06 17:38 WBC RBC Hgb Hct MCV MCH MCHC RDW Lymph % (Auto) [place] % (Auto) Lymph # (Auto) [place] # (Auto) Baso # (Auto) Seg Neutrophils % Seg Neuts % (Manual) Lymphocytes % (Manual) Nucleated RBC % Seg Neutrophils # Seg Neutrophils # Man Lymphocytes # (Manual) Monocytes # (Manual) Eosinophils # (Manual) PT INR APTT D-Dimer Heparin Anti-Xa Level ABG pH POC ABG pCO2 POC ABG pO2 ABG pO2 ABG HCO3 ABG O2 Saturation ABG Base Excess ABG Hemoglobin ABG Oxyhemoglobin ABG Sodium ABG Potassium ABG Chloride ABG Glucose Oxyhemoglobin Carboxyhemoglobin Sodium Potassium Chloride Carbon Dioxide BUN Creatinine Glucose POC Glucose 144 H 230 H 162 H Lactic Acid Calcium Magnesium Ferritin Total Bilirubin Direct Bilirubin AST ALT Alkaline Phosphatase Lactate Dehydrogenase C-Reactive Protein Total Protein Albumin Triglycerides Lipase Arterial Blood Glucose Arterial Blood Ionized Calcium Urine WBC (Auto) Coronavirus (PCR) SARS-CoV-2 IgG Ab Crossmatch 06/06/20 06/07/20 06/07/20 23:50 04:34 06:03 WBC RBC Hgb Hct MCV MCH MCHC RDW Lymph % (Auto) [place] % (Auto) Lymph # (Auto) [place] # (Auto) Baso # (Auto) Seg Neutrophils % Seg Neuts % (Manual) Lymphocytes % (Manual) Nucleated RBC % Seg Neutrophils # Seg Neutrophils # Man Lymphocytes # (Manual) Monocytes # (Manual) Eosinophils # (Manual) PT INR APTT D-Dimer Heparin Anti-Xa Level ABG pH 7.511 H POC ABG pCO2 53.5 H POC ABG pO2 114.5 H ABG pO2 ABG HCO3 ABG O2 Saturation ABG Base Excess ABG Hemoglobin 9.4 L ABG Oxyhemoglobin ABG Sodium 134.5 L ABG Potassium ABG Chloride 94.0 L ABG Glucose 186 H Oxyhemoglobin Carboxyhemoglobin Sodium Potassium Chloride Carbon Dioxide BUN Creatinine Glucose POC Glucose 181 H 155 H Lactic Acid Calcium Magnesium Ferritin Total Bilirubin Direct Bilirubin AST ALT Alkaline Phosphatase Lactate Dehydrogenase C-Reactive Protein Total Protein Albumin Triglycerides Lipase Arterial Blood Glucose 186 H Arterial Blood Ionized Calcium 4.5 L Urine WBC (Auto) Coronavirus (PCR) SARS-CoV-2 IgG Ab Crossmatch 06/07/20 06/07/20 06/07/20 13:41 14:58 14:58 WBC RBC 2.72 L Hgb 9.3 L Hct 27.2 L MCV 100 H MCH 34 H MCHC RDW Lymph % (Auto) [place] % (Auto) Lymph # (Auto) [place] # (Auto) Baso # (Auto) Seg Neutrophils % Seg Neuts % (Manual) Lymphocytes % (Manual) Nucleated RBC % Seg Neutrophils # Seg Neutrophils # Man Lymphocytes # (Manual) Monocytes # (Manual) Eosinophils # (Manual) PT INR APTT D-Dimer Heparin Anti-Xa Level ABG pH POC ABG pCO2 POC ABG pO2 ABG pO2 ABG HCO3 ABG O2 Saturation ABG Base Excess ABG Hemoglobin ABG Oxyhemoglobin ABG Sodium ABG Potassium ABG Chloride ABG Glucose Oxyhemoglobin Carboxyhemoglobin Sodium Potassium Chloride 93.5 L Carbon Dioxide 39 H BUN 22 H Creatinine 0.4 L Glucose 188 H POC Glucose 201 H Lactic Acid Calcium Magnesium Ferritin Total Bilirubin Direct Bilirubin AST 61 H ALT 273 H Alkaline Phosphatase Lactate Dehydrogenase C-Reactive Protein Total Protein 5.9 L Albumin 2.7 L Triglycerides Lipase Arterial Blood Glucose Arterial Blood Ionized Calcium Urine WBC (Auto) Coronavirus (PCR) SARS-CoV-2 IgG Ab Crossmatch 06/07/20 06/08/20 06/08/20 23:18 05:31 12:07 WBC RBC Hgb Hct MCV MCH MCHC RDW Lymph % (Auto) [place] % (Auto) Lymph # (Auto) [place] # (Auto) Baso # (Auto) Seg Neutrophils % Seg Neuts % (Manual) Lymphocytes % (Manual) Nucleated RBC % Seg Neutrophils # Seg Neutrophils # Man Lymphocytes # (Manual) Monocytes # (Manual) Eosinophils # (Manual) PT INR APTT D-Dimer Heparin Anti-Xa Level ABG pH POC ABG pCO2 POC ABG pO2 ABG pO2 ABG HCO3 ABG O2 Saturation ABG Base Excess ABG Hemoglobin ABG Oxyhemoglobin ABG Sodium ABG Potassium ABG Chloride ABG Glucose Oxyhemoglobin Carboxyhemoglobin Sodium Potassium Chloride Carbon Dioxide BUN Creatinine Glucose POC Glucose 214 H 129 H 179 H Lactic Acid Calcium Magnesium Ferritin Total Bilirubin Direct Bilirubin AST ALT Alkaline Phosphatase Lactate Dehydrogenase C-Reactive Protein Total Protein Albumin Triglycerides Lipase Arterial Blood Glucose Arterial Blood Ionized Calcium Urine WBC (Auto) Coronavirus (PCR) SARS-CoV-2 IgG Ab Crossmatch 06/08/20 06/08/20 06/09/20 18:18 23:35 05:42 WBC RBC Hgb Hct MCV MCH MCHC RDW Lymph % (Auto) [place] % (Auto) Lymph # (Auto) [place] # (Auto) Baso # (Auto) Seg Neutrophils % Seg Neuts % (Manual) Lymphocytes % (Manual) Nucleated RBC % Seg Neutrophils # Seg Neutrophils # Man Lymphocytes # (Manual) Monocytes # (Manual) Eosinophils # (Manual) PT INR APTT D-Dimer Heparin Anti-Xa Level ABG pH POC ABG pCO2 POC ABG pO2 ABG pO2 ABG HCO3 ABG O2 Saturation ABG Base Excess ABG Hemoglobin ABG Oxyhemoglobin ABG Sodium ABG Potassium ABG Chloride ABG Glucose Oxyhemoglobin Carboxyhemoglobin Sodium Potassium Chloride Carbon Dioxide BUN Creatinine Glucose POC Glucose 172 H 177 H 137 H Lactic Acid Calcium Magnesium Ferritin Total Bilirubin Direct Bilirubin AST ALT Alkaline Phosphatase Lactate Dehydrogenase C-Reactive Protein Total Protein Albumin Triglycerides Lipase Arterial Blood Glucose Arterial Blood Ionized Calcium Urine WBC (Auto) Coronavirus (PCR) SARS-CoV-2 IgG Ab Crossmatch 06/09/20 06/09/20 06/09/20 06:20 07:55 07:55 WBC 12.4 H RBC 3.26 L Hgb 11.1 L Hct 33.4 L D MCV 102 H MCH 34 H MCHC RDW Lymph % (Auto) [place] % (Auto) Lymph # (Auto) [place] # (Auto) Baso # (Auto) Seg Neutrophils % Seg Neuts % (Manual) Lymphocytes % (Manual) Nucleated RBC % Seg Neutrophils # Seg Neutrophils # Man Lymphocytes # (Manual) Monocytes # (Manual) Eosinophils # (Manual) PT INR APTT D-Dimer Heparin Anti-Xa Level ABG pH 7.466 H POC ABG pCO2 50.7 H POC ABG pO2 53.0 L ABG pO2 ABG HCO3 ABG O2 Saturation ABG Base Excess ABG Hemoglobin ABG Oxyhemoglobin ABG Sodium ABG Potassium 2.9 L ABG Chloride 93.0 L ABG Glucose 138 H Oxyhemoglobin Carboxyhemoglobin Sodium Potassium 3.0 L Chloride 92.3 L Carbon Dioxide 37 H BUN 21 H Creatinine 0.6 L Glucose 120 H POC Glucose Lactic Acid Calcium Magnesium Ferritin Total Bilirubin Direct Bilirubin AST ALT Alkaline Phosphatase Lactate Dehydrogenase C-Reactive Protein Total Protein Albumin Triglycerides Lipase Arterial Blood Glucose 138 H Arterial Blood Ionized Calcium 4.5 L Urine WBC (Auto) Coronavirus (PCR) SARS-CoV-2 IgG Ab Crossmatch 06/09/20 06/09/20 06/10/20 11:22 18:32 04:46 WBC RBC Hgb Hct MCV MCH MCHC RDW Lymph % (Auto) [place] % (Auto) Lymph # (Auto) [place] # (Auto) Baso # (Auto) Seg Neutrophils % Seg Neuts % (Manual) Lymphocytes % (Manual) Nucleated RBC % Seg Neutrophils # Seg Neutrophils # Man Lymphocytes # (Manual) Monocytes # (Manual) Eosinophils # (Manual) PT INR APTT D-Dimer Heparin Anti-Xa Level ABG pH 7.501 H POC ABG pCO2 POC ABG pO2 126.5 H ABG pO2 ABG HCO3 ABG O2 Saturation ABG Base Excess ABG Hemoglobin 10.3 L ABG Oxyhemoglobin ABG Sodium ABG Potassium ABG Chloride ABG Glucose 220 H Oxyhemoglobin Carboxyhemoglobin Sodium Potassium Chloride Carbon Dioxide BUN Creatinine Glucose POC Glucose 117 H 121 H Lactic Acid Calcium Magnesium Ferritin Total Bilirubin Direct Bilirubin AST ALT Alkaline Phosphatase Lactate Dehydrogenase C-Reactive Protein Total Protein Albumin Triglycerides Lipase Arterial Blood Glucose 220 H Arterial Blood Ionized Calcium Urine WBC (Auto) Coronavirus (PCR) SARS-CoV-2 IgG Ab Crossmatch 06/10/20 06/10/20 06/10/20 05:30 09:38 12:03 WBC RBC Hgb Hct MCV MCH MCHC RDW Lymph % (Auto) [place] % (Auto) Lymph # (Auto) [place] # (Auto) Baso # (Auto) Seg Neutrophils % Seg Neuts % (Manual) Lymphocytes % (Manual) Nucleated RBC % Seg Neutrophils # Seg Neutrophils # Man Lymphocytes # (Manual) Monocytes # (Manual) Eosinophils # (Manual) PT INR APTT D-Dimer Heparin Anti-Xa Level ABG pH POC ABG pCO2 POC ABG pO2 ABG pO2 ABG HCO3 ABG O2 Saturation ABG Base Excess ABG Hemoglobin ABG Oxyhemoglobin ABG Sodium ABG Potassium ABG Chloride ABG Glucose Oxyhemoglobin Carboxyhemoglobin Sodium Potassium Chloride Carbon Dioxide BUN Creatinine Glucose POC Glucose 181 H 204 H Lactic Acid Calcium Magnesium Ferritin Total Bilirubin Direct Bilirubin AST ALT Alkaline Phosphatase Lactate Dehydrogenase C-Reactive Protein Total Protein Albumin Triglycerides 738 H Lipase Arterial Blood Glucose Arterial Blood Ionized Calcium Urine WBC (Auto) Coronavirus (PCR) SARS-CoV-2 IgG Ab Crossmatch 06/10/20 06/11/20 06/11/20 17:17 00:04 04:38 WBC RBC Hgb Hct MCV MCH MCHC RDW Lymph % (Auto) [place] % (Auto) Lymph # (Auto) [place] # (Auto) Baso # (Auto) Seg Neutrophils % Seg Neuts % (Manual) Lymphocytes % (Manual) Nucleated RBC % Seg Neutrophils # Seg Neutrophils # Man Lymphocytes # (Manual) Monocytes # (Manual) Eosinophils # (Manual) PT INR APTT D-Dimer Heparin Anti-Xa Level ABG pH 7.479 H POC ABG pCO2 POC ABG pO2 76.7 L ABG pO2 ABG HCO3 ABG O2 Saturation ABG Base Excess ABG Hemoglobin 9.8 L ABG Oxyhemoglobin ABG Sodium 135.8 L ABG Potassium ABG Chloride ABG Glucose 238 H Oxyhemoglobin Carboxyhemoglobin Sodium Potassium Chloride Carbon Dioxide BUN Creatinine Glucose POC Glucose 156 H 178 H Lactic Acid Calcium Magnesium Ferritin Total Bilirubin Direct Bilirubin AST ALT Alkaline Phosphatase Lactate Dehydrogenase C-Reactive Protein Total Protein Albumin Triglycerides Lipase Arterial Blood Glucose 238 H Arterial Blood Ionized Calcium Urine WBC (Auto) Coronavirus (PCR) SARS-CoV-2 IgG Ab Crossmatch 06/11/20 06/11/20 06/11/20 05:21 06:52 11:50 WBC RBC Hgb Hct MCV MCH MCHC RDW Lymph % (Auto) [place] % (Auto) Lymph # (Auto) [place] # (Auto) Baso # (Auto) Seg Neutrophils % Seg Neuts % (Manual) Lymphocytes % (Manual) Nucleated RBC % Seg Neutrophils # Seg Neutrophils # Man Lymphocytes # (Manual) Monocytes # (Manual) Eosinophils # (Manual) PT INR APTT D-Dimer Heparin Anti-Xa Level ABG pH POC ABG pCO2 POC ABG pO2 ABG pO2 ABG HCO3 ABG O2 Saturation ABG Base Excess ABG Hemoglobin ABG Oxyhemoglobin ABG Sodium ABG Potassium ABG Chloride ABG Glucose Oxyhemoglobin Carboxyhemoglobin Sodium Potassium Chloride Carbon Dioxide BUN Creatinine Glucose POC Glucose 215 H 187 H Lactic Acid Calcium Magnesium Ferritin Total Bilirubin Direct Bilirubin AST ALT Alkaline Phosphatase Lactate Dehydrogenase C-Reactive Protein Total Protein Albumin Triglycerides 331 H Lipase Arterial Blood Glucose Arterial Blood Ionized Calcium Urine WBC (Auto) Coronavirus (PCR) SARS-CoV-2 IgG Ab Crossmatch 06/11/20 06/11/20 06/12/20 17:49 23:35 04:52 WBC RBC Hgb Hct MCV MCH MCHC RDW Lymph % (Auto) [place] % (Auto) Lymph # (Auto) [place] # (Auto) Baso # (Auto) Seg Neutrophils % Seg Neuts % (Manual) Lymphocytes % (Manual) Nucleated RBC % Seg Neutrophils # Seg Neutrophils # Man Lymphocytes # (Manual) Monocytes # (Manual) Eosinophils # (Manual) PT INR APTT D-Dimer Heparin Anti-Xa Level ABG pH 7.486 H POC ABG pCO2 POC ABG pO2 ABG pO2 ABG HCO3 ABG O2 Saturation ABG Base Excess ABG Hemoglobin 9.4 L ABG Oxyhemoglobin ABG Sodium ABG Potassium 3.2 L ABG Chloride ABG Glucose 209 H Oxyhemoglobin Carboxyhemoglobin Sodium Potassium Chloride Carbon Dioxide BUN Creatinine Glucose POC Glucose 211 H 200 H Lactic Acid Calcium Magnesium Ferritin Total Bilirubin Direct Bilirubin AST ALT Alkaline Phosphatase Lactate Dehydrogenase C-Reactive Protein Total Protein Albumin Triglycerides Lipase Arterial Blood Glucose 209 H Arterial Blood Ionized Calcium Urine WBC (Auto) Coronavirus (PCR) SARS-CoV-2 IgG Ab Crossmatch 06/12/20 06/12/20 06/12/20 05:13 11:47 18:33 WBC RBC Hgb Hct MCV MCH MCHC RDW Lymph % (Auto) [place] % (Auto) Lymph # (Auto) [place] # (Auto) Baso # (Auto) Seg Neutrophils % Seg Neuts % (Manual) Lymphocytes % (Manual) Nucleated RBC % Seg Neutrophils # Seg Neutrophils # Man Lymphocytes # (Manual) Monocytes # (Manual) Eosinophils # (Manual) PT INR APTT D-Dimer Heparin Anti-Xa Level ABG pH POC ABG pCO2 POC ABG pO2 ABG pO2 ABG HCO3 ABG O2 Saturation ABG Base Excess ABG Hemoglobin ABG Oxyhemoglobin ABG Sodium ABG Potassium ABG Chloride ABG Glucose Oxyhemoglobin Carboxyhemoglobin Sodium Potassium Chloride Carbon Dioxide BUN Creatinine Glucose POC Glucose 174 H 214 H 194 H Lactic Acid Calcium Magnesium Ferritin Total Bilirubin Direct Bilirubin AST ALT Alkaline Phosphatase Lactate Dehydrogenase C-Reactive Protein Total Protein Albumin Triglycerides Lipase Arterial Blood Glucose Arterial Blood Ionized Calcium Urine WBC (Auto) Coronavirus (PCR) SARS-CoV-2 IgG Ab Crossmatch 06/12/20 06/13/20 06/13/20 23:49 05:41 12:30 WBC RBC Hgb Hct MCV MCH MCHC RDW Lymph % (Auto) [place] % (Auto) Lymph # (Auto) [place] # (Auto) Baso # (Auto) Seg Neutrophils % Seg Neuts % (Manual) Lymphocytes % (Manual) Nucleated RBC % Seg Neutrophils # Seg Neutrophils # Man Lymphocytes # (Manual) Monocytes # (Manual) Eosinophils # (Manual) PT INR APTT D-Dimer Heparin Anti-Xa Level ABG pH POC ABG pCO2 POC ABG pO2 ABG pO2 ABG HCO3 ABG O2 Saturation ABG Base Excess ABG Hemoglobin ABG Oxyhemoglobin ABG Sodium ABG Potassium ABG Chloride ABG Glucose Oxyhemoglobin Carboxyhemoglobin Sodium Potassium Chloride Carbon Dioxide BUN Creatinine Glucose POC Glucose 160 H 150 H 181 H Lactic Acid Calcium Magnesium Ferritin Total Bilirubin Direct Bilirubin AST ALT Alkaline Phosphatase Lactate Dehydrogenase C-Reactive Protein Total Protein Albumin Triglycerides Lipase Arterial Blood Glucose Arterial Blood Ionized Calcium Urine WBC (Auto) Coronavirus (PCR) SARS-CoV-2 IgG Ab Crossmatch 06/13/20 06/13/20 06/13/20 14:14 17:48 23:27 WBC 12.8 H RBC 2.33 L Hgb 8.0 L Hct 23.3 L MCV 100 H MCH 34 H MCHC RDW 15.7 H Lymph % (Auto) [place] % (Auto) Lymph # (Auto) [place] # (Auto) Baso # (Auto) Seg Neutrophils % Seg Neuts % (Manual) 85.0 H Lymphocytes % (Manual) 10.0 L Nucleated RBC % Seg Neutrophils # Seg Neutrophils # Man 10.9 H Lymphocytes # (Manual) Monocytes # (Manual) Eosinophils # (Manual) PT INR APTT D-Dimer Heparin Anti-Xa Level ABG pH POC ABG pCO2 POC ABG pO2 ABG pO2 ABG HCO3 ABG O2 Saturation ABG Base Excess ABG Hemoglobin ABG Oxyhemoglobin ABG Sodium ABG Potassium ABG Chloride ABG Glucose Oxyhemoglobin Carboxyhemoglobin Sodium Potassium Chloride Carbon Dioxide BUN Creatinine Glucose POC Glucose 173 H 154 H Lactic Acid Calcium Magnesium Ferritin Total Bilirubin Direct Bilirubin AST ALT Alkaline Phosphatase Lactate Dehydrogenase C-Reactive Protein Total Protein Albumin Triglycerides Lipase Arterial Blood Glucose Arterial Blood Ionized Calcium Urine WBC (Auto) Coronavirus (PCR) SARS-CoV-2 IgG Ab Crossmatch 06/14/20 06/14/20 06/14/20 03:58 05:21 07:15 WBC 26.2 H RBC 2.97 L Hgb 9.7 L Hct 29.9 L D MCV 101 H MCH 33 H MCHC RDW 15.3 H Lymph % (Auto) [place] % (Auto) Lymph # (Auto) [place] # (Auto) Baso # (Auto) Seg Neutrophils % Seg Neuts % (Manual) 79.0 H Lymphocytes % (Manual) 5.0 L Nucleated RBC % 3.0 H Seg Neutrophils # Seg Neutrophils # Man 20.7 H Lymphocytes # (Manual) Monocytes # (Manual) 1.3 H Eosinophils # (Manual) PT INR APTT D-Dimer Heparin Anti-Xa Level ABG pH POC ABG pCO2 51.5 H POC ABG pO2 70.0 L ABG pO2 ABG HCO3 ABG O2 Saturation ABG Base Excess ABG Hemoglobin 10.1 L ABG Oxyhemoglobin ABG Sodium 131.5 L ABG Potassium 3.1 L ABG Chloride 93.0 L ABG Glucose 188 H Oxyhemoglobin Carboxyhemoglobin Sodium Potassium Chloride Carbon Dioxide BUN Creatinine Glucose POC Glucose 147 H Lactic Acid Calcium Magnesium Ferritin Total Bilirubin Direct Bilirubin AST ALT Alkaline Phosphatase Lactate Dehydrogenase C-Reactive Protein Total Protein Albumin Triglycerides Lipase Arterial Blood Glucose 188 H Arterial Blood Ionized Calcium Urine WBC (Auto) Coronavirus (PCR) SARS-CoV-2 IgG Ab Crossmatch 06/14/20 06/14/20 06/14/20 07:15 11:30 11:50 WBC RBC Hgb Hct MCV MCH MCHC RDW Lymph % (Auto) [place] % (Auto) Lymph # (Auto) [place] # (Auto) Baso # (Auto) Seg Neutrophils % Seg Neuts % (Manual) Lymphocytes % (Manual) Nucleated RBC % Seg Neutrophils # Seg Neutrophils # Man Lymphocytes # (Manual) Monocytes # (Manual) Eosinophils # (Manual) PT INR APTT D-Dimer Heparin Anti-Xa Level ABG pH POC ABG pCO2 POC ABG pO2 ABG pO2 ABG HCO3 ABG O2 Saturation ABG Base Excess ABG Hemoglobin ABG Oxyhemoglobin ABG Sodium ABG Potassium ABG Chloride ABG Glucose Oxyhemoglobin Carboxyhemoglobin Sodium 135 L Potassium 3.5 L Chloride 90.4 L Carbon Dioxide 38 H BUN Creatinine 0.5 L Glucose 190 H POC Glucose 176 H Lactic Acid Calcium Magnesium Ferritin 1496.0 H Total Bilirubin Direct Bilirubin AST ALT 81 H Alkaline Phosphatase Lactate Dehydrogenase C-Reactive Protein Total Protein Albumin 2.9 L Triglycerides Lipase Arterial Blood Glucose Arterial Blood Ionized Calcium Urine WBC (Auto) Coronavirus (PCR) SARS-CoV-2 IgG Ab Crossmatch 06/14/20 06/15/20 06/15/20 23:31 04:00 05:00 WBC RBC Hgb Hct MCV MCH MCHC RDW Lymph % (Auto) [place] % (Auto) Lymph # (Auto) [place] # (Auto) Baso # (Auto) Seg Neutrophils % Seg Neuts % (Manual) Lymphocytes % (Manual) Nucleated RBC % Seg Neutrophils # Seg Neutrophils # Man Lymphocytes # (Manual) Monocytes # (Manual) Eosinophils # (Manual) PT INR APTT D-Dimer Heparin Anti-Xa Level ABG pH POC ABG pCO2 POC ABG pO2 ABG pO2 ABG HCO3 ABG O2 Saturation ABG Base Excess ABG Hemoglobin ABG Oxyhemoglobin ABG Sodium ABG Potassium ABG Chloride ABG Glucose Oxyhemoglobin Carboxyhemoglobin Sodium 133 L Potassium Chloride 91.1 L Carbon Dioxide 34 H BUN Creatinine 0.4 L Glucose 159 H POC Glucose 200 H Lactic Acid Calcium Magnesium Ferritin Total Bilirubin 2.00 H Direct Bilirubin AST 47 H ALT 77 H Alkaline Phosphatase Lactate Dehydrogenase C-Reactive Protein Total Protein Albumin 2.6 L Triglycerides 152 H Lipase Arterial Blood Glucose Arterial Blood Ionized Calcium Urine WBC (Auto) Coronavirus (PCR) SARS-CoV-2 IgG Ab Crossmatch 06/15/20 06/15/20 06/15/20 05:35 06:27 11:38 WBC RBC Hgb Hct MCV MCH MCHC RDW Lymph % (Auto) [place] % (Auto) Lymph # (Auto) [place] # (Auto) Baso # (Auto) Seg Neutrophils % Seg Neuts % (Manual) Lymphocytes % (Manual) Nucleated RBC % Seg Neutrophils # Seg Neutrophils # Man Lymphocytes # (Manual) Monocytes # (Manual) Eosinophils # (Manual) PT INR APTT D-Dimer Heparin Anti-Xa Level ABG pH POC ABG pCO2 61.0 H POC ABG pO2 67.9 L ABG pO2 ABG HCO3 ABG O2 Saturation ABG Base Excess ABG Hemoglobin 10.4 L ABG Oxyhemoglobin ABG Sodium 132.7 L ABG Potassium 3.3 L ABG Chloride 92.0 L ABG Glucose 158 H Oxyhemoglobin Carboxyhemoglobin Sodium Potassium Chloride Carbon Dioxide BUN Creatinine Glucose POC Glucose 148 H 197 H Lactic Acid Calcium Magnesium Ferritin Total Bilirubin Direct Bilirubin AST ALT Alkaline Phosphatase Lactate Dehydrogenase C-Reactive Protein Total Protein Albumin Triglycerides Lipase Arterial Blood Glucose 158 H Arterial Blood Ionized Calcium Urine WBC (Auto) Coronavirus (PCR) SARS-CoV-2 IgG Ab Crossmatch 06/15/20 06/15/20 06/16/20 17:29 Unknown 00:01 WBC 20.7 H RBC 2.57 L Hgb 8.9 L Hct 25.8 L MCV 101 H MCH 35 H MCHC 35 H RDW 16.0 H Lymph % (Auto) [place] % (Auto) Lymph # (Auto) [place] # (Auto) Baso # (Auto) Seg Neutrophils % Seg Neuts % (Manual) 83.0 H Lymphocytes % (Manual) 8.0 L Nucleated RBC % Seg Neutrophils # Seg Neutrophils # Man 17.2 H Lymphocytes # (Manual) Monocytes # (Manual) 1.2 H Eosinophils # (Manual) PT INR APTT D-Dimer Heparin Anti-Xa Level ABG pH POC ABG pCO2 POC ABG pO2 ABG pO2 ABG HCO3 ABG O2 Saturation ABG Base Excess ABG Hemoglobin ABG Oxyhemoglobin ABG Sodium ABG Potassium ABG Chloride ABG Glucose Oxyhemoglobin Carboxyhemoglobin Sodium Potassium Chloride Carbon Dioxide BUN Creatinine Glucose POC Glucose 231 H 257 H Lactic Acid Calcium Magnesium Ferritin Total Bilirubin Direct Bilirubin AST ALT Alkaline Phosphatase Lactate Dehydrogenase C-Reactive Protein Total Protein Albumin Triglycerides Lipase Arterial Blood Glucose Arterial Blood Ionized Calcium Urine WBC (Auto) Coronavirus (PCR) SARS-CoV-2 IgG Ab Crossmatch 06/16/20 06/16/20 06/16/20 04:00 04:00 05:22 WBC 13.8 H RBC 2.03 L Hgb 7.6 L Hct 20.7 L MCV 102 H MCH 37 H MCHC 37 H RDW 16.2 H Lymph % (Auto) 4.4 L [place] % (Auto) Lymph # (Auto) 0.6 L [place] # (Auto) Baso # (Auto) Seg Neutrophils % Seg Neuts % (Manual) Lymphocytes % (Manual) Nucleated RBC % Seg Neutrophils # 12.7 H Seg Neutrophils # Man Lymphocytes # (Manual) Monocytes # (Manual) Eosinophils # (Manual) PT INR APTT D-Dimer Heparin Anti-Xa Level ABG pH POC ABG pCO2 POC ABG pO2 ABG pO2 ABG HCO3 ABG O2 Saturation ABG Base Excess ABG Hemoglobin ABG Oxyhemoglobin ABG Sodium ABG Potassium ABG Chloride ABG Glucose Oxyhemoglobin Carboxyhemoglobin Sodium 130 L Potassium Chloride 88.9 L Carbon Dioxide 36 H BUN Creatinine 0.3 L Glucose 276 H POC Glucose 250 H Lactic Acid Calcium Magnesium Ferritin Total Bilirubin Direct Bilirubin AST ALT Alkaline Phosphatase Lactate Dehydrogenase C-Reactive Protein Total Protein Albumin Triglycerides Lipase Arterial Blood Glucose Arterial Blood Ionized Calcium Urine WBC (Auto) Coronavirus (PCR) SARS-CoV-2 IgG Ab Crossmatch 06/16/20 06/16/20 06/17/20 12:44 18:18 00:39 WBC RBC Hgb Hct MCV MCH MCHC RDW Lymph % (Auto) [place] % (Auto) Lymph # (Auto) [place] # (Auto) Baso # (Auto) Seg Neutrophils % Seg Neuts % (Manual) Lymphocytes % (Manual) Nucleated RBC % Seg Neutrophils # Seg Neutrophils # Man Lymphocytes # (Manual) Monocytes # (Manual) Eosinophils # (Manual) PT INR APTT D-Dimer Heparin Anti-Xa Level ABG pH POC ABG pCO2 POC ABG pO2 ABG pO2 ABG HCO3 ABG O2 Saturation ABG Base Excess ABG Hemoglobin ABG Oxyhemoglobin ABG Sodium ABG Potassium ABG Chloride ABG Glucose Oxyhemoglobin Carboxyhemoglobin Sodium Potassium Chloride Carbon Dioxide BUN Creatinine Glucose POC Glucose 279 H 239 H 247 H Lactic Acid Calcium Magnesium Ferritin Total Bilirubin Direct Bilirubin AST ALT Alkaline Phosphatase Lactate Dehydrogenase C-Reactive Protein Total Protein Albumin Triglycerides Lipase Arterial Blood Glucose Arterial Blood Ionized Calcium Urine WBC (Auto) Coronavirus (PCR) SARS-CoV-2 IgG Ab Crossmatch 06/17/20 06/17/20 06/17/20 03:40 04:08 10:54 WBC RBC Hgb Hct MCV MCH MCHC RDW Lymph % (Auto) [place] % (Auto) Lymph # (Auto) [place] # (Auto) Baso # (Auto) Seg Neutrophils % Seg Neuts % (Manual) Lymphocytes % (Manual) Nucleated RBC % Seg Neutrophils # Seg Neutrophils # Man Lymphocytes # (Manual) Monocytes # (Manual) Eosinophils # (Manual) PT INR APTT D-Dimer Heparin Anti-Xa Level ABG pH POC ABG pCO2 65.7 H POC ABG pO2 ABG pO2 ABG HCO3 ABG O2 Saturation ABG Base Excess ABG Hemoglobin 11.9 L ABG Oxyhemoglobin ABG Sodium ABG Potassium ABG Chloride 93.0 L ABG Glucose 244 H Oxyhemoglobin Carboxyhemoglobin Sodium Potassium Chloride Carbon Dioxide BUN Creatinine Glucose POC Glucose 221 H 248 H Lactic Acid Calcium Magnesium Ferritin Total Bilirubin Direct Bilirubin AST ALT Alkaline Phosphatase Lactate Dehydrogenase C-Reactive Protein Total Protein Albumin Triglycerides Lipase Arterial Blood Glucose 244 H Arterial Blood Ionized Calcium Urine WBC (Auto) Coronavirus (PCR) SARS-CoV-2 IgG Ab Crossmatch 06/17/20 06/17/20 06/17/20 17:47 23:11 23:29 WBC RBC Hgb Hct MCV MCH MCHC RDW Lymph % (Auto) [place] % (Auto) Lymph # (Auto) [place] # (Auto) Baso # (Auto) Seg Neutrophils % Seg Neuts % (Manual) Lymphocytes % (Manual) Nucleated RBC % Seg Neutrophils # Seg Neutrophils # Man Lymphocytes # (Manual) Monocytes # (Manual) Eosinophils # (Manual) PT INR APTT D-Dimer Heparin Anti-Xa Level ABG pH POC ABG pCO2 85.2 H POC ABG pO2 48.4 L ABG pO2 ABG HCO3 ABG O2 Saturation ABG Base Excess ABG Hemoglobin 8.0 L ABG Oxyhemoglobin ABG Sodium ABG Potassium ABG Chloride 95.0 L ABG Glucose 292 H Oxyhemoglobin Carboxyhemoglobin Sodium Potassium Chloride Carbon Dioxide BUN Creatinine Glucose POC Glucose 245 H 252 H Lactic Acid Calcium Magnesium Ferritin Total Bilirubin Direct Bilirubin AST ALT Alkaline Phosphatase Lactate Dehydrogenase C-Reactive Protein Total Protein Albumin Triglycerides Lipase Arterial Blood Glucose 292 H Arterial Blood Ionized Calcium Urine WBC (Auto) Coronavirus (PCR) SARS-CoV-2 IgG Ab Crossmatch 06/18/20 06/18/20 06/18/20 03:14 05:34 11:47 WBC RBC Hgb Hct MCV MCH MCHC RDW Lymph % (Auto) [place] % (Auto) Lymph # (Auto) [place] # (Auto) Baso # (Auto) Seg Neutrophils % Seg Neuts % (Manual) Lymphocytes % (Manual) Nucleated RBC % Seg Neutrophils # Seg Neutrophils # Man Lymphocytes # (Manual) Monocytes # (Manual) Eosinophils # (Manual) PT INR APTT D-Dimer Heparin Anti-Xa Level ABG pH POC ABG pCO2 65.4 H POC ABG pO2 160.7 H ABG pO2 ABG HCO3 ABG O2 Saturation ABG Base Excess ABG Hemoglobin 7.8 L ABG Oxyhemoglobin ABG Sodium ABG Potassium ABG Chloride 95.0 L ABG Glucose 251 H Oxyhemoglobin Carboxyhemoglobin Sodium Potassium Chloride Carbon Dioxide BUN Creatinine Glucose POC Glucose 243 H 263 H Lactic Acid Calcium Magnesium Ferritin Total Bilirubin Direct Bilirubin AST ALT Alkaline Phosphatase Lactate Dehydrogenase C-Reactive Protein Total Protein Albumin Triglycerides Lipase Arterial Blood Glucose 251 H Arterial Blood Ionized Calcium Urine WBC (Auto) Coronavirus (PCR) SARS-CoV-2 IgG Ab Crossmatch 06/18/20 06/18/20 06/19/20 17:31 23:33 04:32 WBC RBC Hgb Hct MCV MCH MCHC RDW Lymph % (Auto) [place] % (Auto) Lymph # (Auto) [place] # (Auto) Baso # (Auto) Seg Neutrophils % Seg Neuts % (Manual) Lymphocytes % (Manual) Nucleated RBC % Seg Neutrophils # Seg Neutrophils # Man Lymphocytes # (Manual) Monocytes # (Manual) Eosinophils # (Manual) PT INR APTT D-Dimer Heparin Anti-Xa Level ABG pH POC ABG pCO2 83.1 H POC ABG pO2 65.8 L ABG pO2 ABG HCO3 ABG O2 Saturation ABG Base Excess ABG Hemoglobin 8.9 L ABG Oxyhemoglobin ABG Sodium ABG Potassium ABG Chloride 96.0 L ABG Glucose 297 H Oxyhemoglobin Carboxyhemoglobin Sodium Potassium Chloride Carbon Dioxide BUN Creatinine Glucose POC Glucose 286 H 238 H Lactic Acid Calcium Magnesium Ferritin Total Bilirubin Direct Bilirubin AST ALT Alkaline Phosphatase Lactate Dehydrogenase C-Reactive Protein Total Protein Albumin Triglycerides Lipase Arterial Blood Glucose 297 H Arterial Blood Ionized Calcium Urine WBC (Auto) Coronavirus (PCR) SARS-CoV-2 IgG Ab Crossmatch 06/19/20 06/19/20 06/19/20 05:55 11:20 17:12 WBC RBC Hgb Hct MCV MCH MCHC RDW Lymph % (Auto) [place] % (Auto) Lymph # (Auto) [place] # (Auto) Baso # (Auto) Seg Neutrophils % Seg Neuts % (Manual) Lymphocytes % (Manual) Nucleated RBC % Seg Neutrophils # Seg Neutrophils # Man Lymphocytes # (Manual) Monocytes # (Manual) Eosinophils # (Manual) PT INR APTT D-Dimer Heparin Anti-Xa Level ABG pH POC ABG pCO2 POC ABG pO2 ABG pO2 ABG HCO3 ABG O2 Saturation ABG Base Excess ABG Hemoglobin ABG Oxyhemoglobin ABG Sodium ABG Potassium ABG Chloride ABG Glucose Oxyhemoglobin Carboxyhemoglobin Sodium Potassium Chloride Carbon Dioxide BUN Creatinine Glucose POC Glucose 274 H 282 H 298 H Lactic Acid Calcium Magnesium Ferritin Total Bilirubin Direct Bilirubin AST ALT Alkaline Phosphatase Lactate Dehydrogenase C-Reactive Protein Total Protein Albumin Triglycerides Lipase Arterial Blood Glucose Arterial Blood Ionized Calcium Urine WBC (Auto) Coronavirus (PCR) SARS-CoV-2 IgG Ab Crossmatch 06/19/20 06/20/20 06/20/20 23:08 03:33 06:01 WBC RBC Hgb Hct MCV MCH MCHC RDW Lymph % (Auto) [place] % (Auto) Lymph # (Auto) [place] # (Auto) Baso # (Auto) Seg Neutrophils % Seg Neuts % (Manual) Lymphocytes % (Manual) Nucleated RBC % Seg Neutrophils # Seg Neutrophils # Man Lymphocytes # (Manual) Monocytes # (Manual) Eosinophils # (Manual) PT INR APTT D-Dimer Heparin Anti-Xa Level ABG pH POC ABG pCO2 POC ABG pO2 ABG pO2 69.9 L ABG HCO3 50.8 H ABG O2 Saturation ABG Base Excess 24.2 H ABG Hemoglobin 5.8 L ABG Oxyhemoglobin ABG Sodium ABG Potassium ABG Chloride ABG Glucose Oxyhemoglobin Carboxyhemoglobin Sodium Potassium Chloride Carbon Dioxide BUN Creatinine Glucose POC Glucose 293 H 182 H Lactic Acid Calcium Magnesium Ferritin Total Bilirubin Direct Bilirubin AST ALT Alkaline Phosphatase Lactate Dehydrogenase C-Reactive Protein Total Protein Albumin Triglycerides Lipase Arterial Blood Glucose Arterial Blood Ionized Calcium Urine WBC (Auto) Coronavirus (PCR) SARS-CoV-2 IgG Ab Crossmatch 06/20/20 06/20/20 06/20/20 11:47 17:46 23:37 WBC RBC Hgb Hct MCV MCH MCHC RDW Lymph % (Auto) [place] % (Auto) Lymph # (Auto) [place] # (Auto) Baso # (Auto) Seg Neutrophils % Seg Neuts % (Manual) Lymphocytes % (Manual) Nucleated RBC % Seg Neutrophils # Seg Neutrophils # Man Lymphocytes # (Manual) Monocytes # (Manual) Eosinophils # (Manual) PT INR APTT D-Dimer Heparin Anti-Xa Level ABG pH POC ABG pCO2 POC ABG pO2 ABG pO2 ABG HCO3 ABG O2 Saturation ABG Base Excess ABG Hemoglobin ABG Oxyhemoglobin ABG Sodium ABG Potassium ABG Chloride ABG Glucose Oxyhemoglobin Carboxyhemoglobin Sodium Potassium Chloride Carbon Dioxide BUN Creatinine Glucose POC Glucose 170 H 215 H 256 H Lactic Acid Calcium Magnesium Ferritin Total Bilirubin Direct Bilirubin AST ALT Alkaline Phosphatase Lactate Dehydrogenase C-Reactive Protein Total Protein Albumin Triglycerides Lipase Arterial Blood Glucose Arterial Blood Ionized Calcium Urine WBC (Auto) Coronavirus (PCR) SARS-CoV-2 IgG Ab Crossmatch 06/21/20 06/21/20 06/21/20 04:00 05:14 05:51 WBC RBC Hgb Hct MCV MCH MCHC RDW Lymph % (Auto) [place] % (Auto) Lymph # (Auto) [place] # (Auto) Baso # (Auto) Seg Neutrophils % Seg Neuts % (Manual) Lymphocytes % (Manual) Nucleated RBC % Seg Neutrophils # Seg Neutrophils # Man Lymphocytes # (Manual) Monocytes # (Manual) Eosinophils # (Manual) PT INR APTT D-Dimer Heparin Anti-Xa Level ABG pH 7.474 H POC ABG pCO2 POC ABG pO2 ABG pO2 ABG HCO3 52.1 H ABG O2 Saturation ABG Base Excess 23.3 H ABG Hemoglobin 5.3 L ABG Oxyhemoglobin ABG Sodium ABG Potassium ABG Chloride ABG Glucose Oxyhemoglobin 93.8 L Carboxyhemoglobin Sodium Potassium Chloride Carbon Dioxide BUN Creatinine Glucose POC Glucose 122 H 129 H Lactic Acid Calcium Magnesium Ferritin Total Bilirubin Direct Bilirubin AST ALT Alkaline Phosphatase Lactate Dehydrogenase C-Reactive Protein Total Protein Albumin Triglycerides Lipase Arterial Blood Glucose Arterial Blood Ionized Calcium Urine WBC (Auto) Coronavirus (PCR) SARS-CoV-2 IgG Ab Crossmatch 06/21/20 06/21/20 06/21/20 11:00 11:00 11:42 WBC 14.2 H RBC 1.85 L Hgb 6.2 L Hct 19.5 L* MCV 105 H MCH 34 H MCHC RDW 18.0 H Lymph % (Auto) [place] % (Auto) Lymph # (Auto) [place] # (Auto) Baso # (Auto) Seg Neutrophils % Seg Neuts % (Manual) Lymphocytes % (Manual) Nucleated RBC % Seg Neutrophils # Seg Neutrophils # Man Lymphocytes # (Manual) Monocytes # (Manual) Eosinophils # (Manual) PT INR APTT D-Dimer Heparin Anti-Xa Level ABG pH POC ABG pCO2 POC ABG pO2 ABG pO2 ABG HCO3 ABG O2 Saturation ABG Base Excess ABG Hemoglobin ABG Oxyhemoglobin ABG Sodium ABG Potassium ABG Chloride ABG Glucose Oxyhemoglobin Carboxyhemoglobin Sodium 147 H Potassium Chloride Carbon Dioxide 51 H* BUN 31 H Creatinine 0.5 L Glucose 224 H POC Glucose 217 H Lactic Acid Calcium Magnesium Ferritin Total Bilirubin Direct Bilirubin AST ALT Alkaline Phosphatase Lactate Dehydrogenase C-Reactive Protein Total Protein Albumin Triglycerides Lipase Arterial Blood Glucose Arterial Blood Ionized Calcium Urine WBC (Auto) Coronavirus (PCR) SARS-CoV-2 IgG Ab Crossmatch 06/21/20 06/21/20 06/21/20 14:18 14:30 18:36 WBC RBC Hgb Hct MCV MCH MCHC RDW Lymph % (Auto) [place] % (Auto) Lymph # (Auto) [place] # (Auto) Baso # (Auto) Seg Neutrophils % Seg Neuts % (Manual) Lymphocytes % (Manual) Nucleated RBC % Seg Neutrophils # Seg Neutrophils # Man Lymphocytes # (Manual) Monocytes # (Manual) Eosinophils # (Manual) PT 15.1 H INR 1.19 H APTT D-Dimer Heparin Anti-Xa Level ABG pH POC ABG pCO2 POC ABG pO2 ABG pO2 ABG HCO3 ABG O2 Saturation ABG Base Excess ABG Hemoglobin ABG Oxyhemoglobin ABG Sodium ABG Potassium ABG Chloride ABG Glucose Oxyhemoglobin Carboxyhemoglobin Sodium Potassium Chloride Carbon Dioxide BUN Creatinine Glucose POC Glucose 185 H Lactic Acid Calcium Magnesium Ferritin Total Bilirubin Direct Bilirubin AST ALT Alkaline Phosphatase Lactate Dehydrogenase C-Reactive Protein Total Protein Albumin Triglycerides Lipase Arterial Blood Glucose Arterial Blood Ionized Calcium Urine WBC (Auto) Coronavirus (PCR) SARS-CoV-2 IgG Ab Crossmatch See Detail 06/21/20 06/22/20 06/22/20 21:14 03:50 04:00 WBC RBC Hgb Hct MCV MCH MCHC RDW Lymph % (Auto) [place] % (Auto) Lymph # (Auto) [place] # (Auto) Baso # (Auto) Seg Neutrophils % Seg Neuts % (Manual) Lymphocytes % (Manual) Nucleated RBC % Seg Neutrophils # Seg Neutrophils # Man Lymphocytes # (Manual) Monocytes # (Manual) Eosinophils # (Manual) PT INR APTT D-Dimer Heparin Anti-Xa Level ABG pH 7.451 H POC ABG pCO2 POC ABG pO2 ABG pO2 ABG HCO3 47.5 H ABG O2 Saturation ABG Base Excess 22.0 H ABG Hemoglobin < 5.1 L ABG Oxyhemoglobin ABG Sodium ABG Potassium ABG Chloride ABG Glucose Oxyhemoglobin 94.1 L Carboxyhemoglobin Sodium 149 H Potassium 3.5 L Chloride Carbon Dioxide 42 H* D BUN 34 H Creatinine 0.4 L Glucose 219 H POC Glucose 250 H Lactic Acid Calcium Magnesium Ferritin Total Bilirubin Direct Bilirubin AST ALT Alkaline Phosphatase Lactate Dehydrogenase C-Reactive Protein Total Protein Albumin Triglycerides Lipase Arterial Blood Glucose Arterial Blood Ionized Calcium Urine WBC (Auto) Coronavirus (PCR) SARS-CoV-2 IgG Ab Crossmatch 06/22/20 06/22/20 06/22/20 12:16 14:29 17:56 WBC RBC Hgb Hct MCV MCH MCHC RDW Lymph % (Auto) [place] % (Auto) Lymph # (Auto) [place] # (Auto) Baso # (Auto) Seg Neutrophils % Seg Neuts % (Manual) Lymphocytes % (Manual) Nucleated RBC % Seg Neutrophils # Seg Neutrophils # Man Lymphocytes # (Manual) Monocytes # (Manual) Eosinophils # (Manual) PT 11.8 L INR APTT 23.5 L D-Dimer Heparin Anti-Xa Level ABG pH POC ABG pCO2 POC ABG pO2 ABG pO2 ABG HCO3 ABG O2 Saturation ABG Base Excess ABG Hemoglobin ABG Oxyhemoglobin ABG Sodium ABG Potassium ABG Chloride ABG Glucose Oxyhemoglobin Carboxyhemoglobin Sodium Potassium Chloride Carbon Dioxide BUN Creatinine Glucose POC Glucose 215 H 215 H Lactic Acid Calcium Magnesium Ferritin Total Bilirubin Direct Bilirubin AST ALT Alkaline Phosphatase Lactate Dehydrogenase C-Reactive Protein Total Protein Albumin Triglycerides Lipase Arterial Blood Glucose Arterial Blood Ionized Calcium Urine WBC (Auto) Coronavirus (PCR) SARS-CoV-2 IgG Ab Crossmatch 06/22/20 06/22/20 06/22/20 23:36 23:45 Unknown WBC 14.1 H RBC 2.70 L Hgb 8.9 L 8.9 L Hct 26.9 L 27.2 L D MCV 101 H MCH 33 H MCHC RDW 17.7 H Lymph % (Auto) [place] % (Auto) Lymph # (Auto) [place] # (Auto) Baso # (Auto) Seg Neutrophils % Seg Neuts % (Manual) 92.0 H Lymphocytes % (Manual) 5.0 L Nucleated RBC % Seg Neutrophils # Seg Neutrophils # Man 13.0 H Lymphocytes # (Manual) 0.7 L Monocytes # (Manual) Eosinophils # (Manual) PT INR APTT D-Dimer Heparin Anti-Xa Level ABG pH POC ABG pCO2 POC ABG pO2 ABG pO2 ABG HCO3 ABG O2 Saturation ABG Base Excess ABG Hemoglobin ABG Oxyhemoglobin ABG Sodium ABG Potassium ABG Chloride ABG Glucose Oxyhemoglobin Carboxyhemoglobin Sodium Potassium Chloride Carbon Dioxide BUN Creatinine Glucose POC Glucose 208 H Lactic Acid Calcium Magnesium Ferritin Total Bilirubin Direct Bilirubin AST ALT Alkaline Phosphatase Lactate Dehydrogenase C-Reactive Protein Total Protein Albumin Triglycerides Lipase Arterial Blood Glucose Arterial Blood Ionized Calcium Urine WBC (Auto) Coronavirus (PCR) SARS-CoV-2 IgG Ab Crossmatch 06/23/20 06/23/20 06/23/20 05:17 05:19 06:50 WBC RBC Hgb Hct MCV MCH MCHC RDW Lymph % (Auto) [place] % (Auto) Lymph # (Auto) [place] # (Auto) Baso # (Auto) Seg Neutrophils % Seg Neuts % (Manual) Lymphocytes % (Manual) Nucleated RBC % Seg Neutrophils # Seg Neutrophils # Man Lymphocytes # (Manual) Monocytes # (Manual) Eosinophils # (Manual) PT INR APTT D-Dimer Heparin Anti-Xa Level ABG pH POC ABG pCO2 69.7 H POC ABG pO2 63.3 L ABG pO2 ABG HCO3 ABG O2 Saturation ABG Base Excess ABG Hemoglobin 10.1 L ABG Oxyhemoglobin ABG Sodium ABG Potassium 3.3 L ABG Chloride ABG Glucose 226 H Oxyhemoglobin Carboxyhemoglobin Sodium Potassium 3.0 L Chloride Carbon Dioxide 41 H* BUN 26 H Creatinine 0.4 L Glucose 209 H POC Glucose 200 H Lactic Acid Calcium Magnesium Ferritin Total Bilirubin Direct Bilirubin AST ALT Alkaline Phosphatase Lactate Dehydrogenase C-Reactive Protein Total Protein Albumin 2.9 L Triglycerides Lipase Arterial Blood Glucose 226 H Arterial Blood Ionized Calcium Urine WBC (Auto) Coronavirus (PCR) SARS-CoV-2 IgG Ab Crossmatch 06/23/20 06/23/20 06/23/20 09:41 12:04 18:16 WBC RBC Hgb 9.1 L Hct 28.0 L MCV MCH MCHC RDW Lymph % (Auto) [place] % (Auto) Lymph # (Auto) [place] # (Auto) Baso # (Auto) Seg Neutrophils % Seg Neuts % (Manual) Lymphocytes % (Manual) Nucleated RBC % Seg Neutrophils # Seg Neutrophils # Man Lymphocytes # (Manual) Monocytes # (Manual) Eosinophils # (Manual) PT INR APTT D-Dimer Heparin Anti-Xa Level ABG pH POC ABG pCO2 POC ABG pO2 ABG pO2 ABG HCO3 ABG O2 Saturation ABG Base Excess ABG Hemoglobin ABG Oxyhemoglobin ABG Sodium ABG Potassium ABG Chloride ABG Glucose Oxyhemoglobin Carboxyhemoglobin Sodium Potassium Chloride Carbon Dioxide BUN Creatinine Glucose POC Glucose 146 H 162 H Lactic Acid Calcium Magnesium Ferritin Total Bilirubin Direct Bilirubin AST ALT Alkaline Phosphatase Lactate Dehydrogenase C-Reactive Protein Total Protein Albumin Triglycerides Lipase Arterial Blood Glucose Arterial Blood Ionized Calcium Urine WBC (Auto) Coronavirus (PCR) SARS-CoV-2 IgG Ab Crossmatch 06/23/20 06/23/20 06/24/20 23:24 23:41 02:39 WBC RBC Hgb 8.2 L 8.8 L Hct 24.9 L 26.8 L MCV MCH MCHC RDW Lymph % (Auto) [place] % (Auto) Lymph # (Auto) [place] # (Auto) Baso # (Auto) Seg Neutrophils % Seg Neuts % (Manual) Lymphocytes % (Manual) Nucleated RBC % Seg Neutrophils # Seg Neutrophils # Man Lymphocytes # (Manual) Monocytes # (Manual) Eosinophils # (Manual) PT INR APTT D-Dimer Heparin Anti-Xa Level ABG pH POC ABG pCO2 POC ABG pO2 ABG pO2 ABG HCO3 ABG O2 Saturation ABG Base Excess ABG Hemoglobin ABG Oxyhemoglobin ABG Sodium ABG Potassium ABG Chloride ABG Glucose Oxyhemoglobin Carboxyhemoglobin Sodium Potassium Chloride Carbon Dioxide BUN Creatinine Glucose POC Glucose 248 H Lactic Acid Calcium Magnesium Ferritin Total Bilirubin Direct Bilirubin AST ALT Alkaline Phosphatase Lactate Dehydrogenase C-Reactive Protein Total Protein Albumin Triglycerides Lipase Arterial Blood Glucose Arterial Blood Ionized Calcium Urine WBC (Auto) Coronavirus (PCR) SARS-CoV-2 IgG Ab Crossmatch 06/24/20 06/24/20 06/24/20 02:39 02:45 05:31 WBC RBC Hgb Hct MCV MCH MCHC RDW Lymph % (Auto) [place] % (Auto) Lymph # (Auto) [place] # (Auto) Baso # (Auto) Seg Neutrophils % Seg Neuts % (Manual) Lymphocytes % (Manual) Nucleated RBC % Seg Neutrophils # Seg Neutrophils # Man Lymphocytes # (Manual) Monocytes # (Manual) Eosinophils # (Manual) PT INR APTT D-Dimer Heparin Anti-Xa Level ABG pH POC ABG pCO2 66.9 H POC ABG pO2 109.7 H ABG pO2 ABG HCO3 ABG O2 Saturation ABG Base Excess ABG Hemoglobin 9.7 L ABG Oxyhemoglobin ABG Sodium 135.0 L ABG Potassium ABG Chloride 97.0 L ABG Glucose 277 H Oxyhemoglobin Carboxyhemoglobin Sodium 136 L Potassium Chloride 95.0 L Carbon Dioxide 34 H D BUN 24 H Creatinine 0.3 L Glucose 260 H POC Glucose 164 H Lactic Acid Calcium Magnesium Ferritin Total Bilirubin Direct Bilirubin AST ALT Alkaline Phosphatase Lactate Dehydrogenase C-Reactive Protein Total Protein 5.2 L Albumin 2.6 L Triglycerides Lipase Arterial Blood Glucose 277 H Arterial Blood Ionized Calcium Urine WBC (Auto) Coronavirus (PCR) SARS-CoV-2 IgG Ab Crossmatch 06/24/20 06/24/20 06/24/20 10:00 11:49 17:39 WBC RBC Hgb 8.9 L Hct 26.5 L MCV MCH MCHC RDW Lymph % (Auto) [place] % (Auto) Lymph # (Auto) [place] # (Auto) Baso # (Auto) Seg Neutrophils % Seg Neuts % (Manual) Lymphocytes % (Manual) Nucleated RBC % Seg Neutrophils # Seg Neutrophils # Man Lymphocytes # (Manual) Monocytes # (Manual) Eosinophils # (Manual) PT INR APTT D-Dimer Heparin Anti-Xa Level ABG pH POC ABG pCO2 POC ABG pO2 ABG pO2 ABG HCO3 ABG O2 Saturation ABG Base Excess ABG Hemoglobin ABG Oxyhemoglobin ABG Sodium ABG Potassium ABG Chloride ABG Glucose Oxyhemoglobin Carboxyhemoglobin Sodium Potassium Chloride Carbon Dioxide BUN Creatinine Glucose POC Glucose 198 H 223 H Lactic Acid Calcium Magnesium Ferritin Total Bilirubin Direct Bilirubin AST ALT Alkaline Phosphatase Lactate Dehydrogenase C-Reactive Protein Total Protein Albumin Triglycerides Lipase Arterial Blood Glucose Arterial Blood Ionized Calcium Urine WBC (Auto) Coronavirus (PCR) SARS-CoV-2 IgG Ab Crossmatch 06/24/20 06/25/20 06/25/20 23:56 02:16 04:08 WBC RBC Hgb Hct MCV MCH MCHC RDW Lymph % (Auto) [place] % (Auto) Lymph # (Auto) [place] # (Auto) Baso # (Auto) Seg Neutrophils % Seg Neuts % (Manual) Lymphocytes % (Manual) Nucleated RBC % Seg Neutrophils # Seg Neutrophils # Man Lymphocytes # (Manual) Monocytes # (Manual) Eosinophils # (Manual) PT INR APTT D-Dimer Heparin Anti-Xa Level ABG pH 7.454 H POC ABG pCO2 56.9 H POC ABG pO2 61.0 L ABG pO2 ABG HCO3 ABG O2 Saturation ABG Base Excess ABG Hemoglobin ABG Oxyhemoglobin ABG Sodium 134.3 L ABG Potassium ABG Chloride 92.0 L ABG Glucose 246 H Oxyhemoglobin Carboxyhemoglobin Sodium 134 L Potassium Chloride 89.7 L Carbon Dioxide 36 H BUN Creatinine 0.3 L Glucose 254 H POC Glucose 225 H Lactic Acid Calcium Magnesium Ferritin Total Bilirubin Direct Bilirubin AST ALT Alkaline Phosphatase Lactate Dehydrogenase C-Reactive Protein Total Protein Albumin 2.9 L Triglycerides Lipase Arterial Blood Glucose 246 H Arterial Blood Ionized Calcium Urine WBC (Auto) Coronavirus (PCR) SARS-CoV-2 IgG Ab Crossmatch 06/25/20 06/25/20 06/25/20 05:44 11:35 17:33 WBC RBC Hgb Hct MCV MCH MCHC RDW Lymph % (Auto) [place] % (Auto) Lymph # (Auto) [place] # (Auto) Baso # (Auto) Seg Neutrophils % Seg Neuts % (Manual) Lymphocytes % (Manual) Nucleated RBC % Seg Neutrophils # Seg Neutrophils # Man Lymphocytes # (Manual) Monocytes # (Manual) Eosinophils # (Manual) PT INR APTT D-Dimer Heparin Anti-Xa Level ABG pH POC ABG pCO2 POC ABG pO2 ABG pO2 ABG HCO3 ABG O2 Saturation ABG Base Excess ABG Hemoglobin ABG Oxyhemoglobin ABG Sodium ABG Potassium ABG Chloride ABG Glucose Oxyhemoglobin Carboxyhemoglobin Sodium Potassium Chloride Carbon Dioxide BUN Creatinine Glucose POC Glucose 170 H 175 H 229 H Lactic Acid Calcium Magnesium Ferritin Total Bilirubin Direct Bilirubin AST ALT Alkaline Phosphatase Lactate Dehydrogenase C-Reactive Protein Total Protein Albumin Triglycerides Lipase Arterial Blood Glucose Arterial Blood Ionized Calcium Urine WBC (Auto) Coronavirus (PCR) SARS-CoV-2 IgG Ab Crossmatch 06/25/20 06/26/20 06/26/20 23:55 02:17 02:17 WBC RBC Hgb 10.0 L Hct 30.4 L MCV MCH MCHC RDW Lymph % (Auto) [place] % (Auto) Lymph # (Auto) [place] # (Auto) Baso # (Auto) Seg Neutrophils % Seg Neuts % (Manual) Lymphocytes % (Manual) Nucleated RBC % Seg Neutrophils # Seg Neutrophils # Man Lymphocytes # (Manual) Monocytes # (Manual) Eosinophils # (Manual) PT INR APTT D-Dimer Heparin Anti-Xa Level ABG pH POC ABG pCO2 POC ABG pO2 ABG pO2 ABG HCO3 ABG O2 Saturation ABG Base Excess ABG Hemoglobin ABG Oxyhemoglobin ABG Sodium ABG Potassium ABG Chloride ABG Glucose Oxyhemoglobin Carboxyhemoglobin Sodium 136 L Potassium Chloride 90.1 L Carbon Dioxide 39 H BUN Creatinine 0.2 L Glucose 232 H POC Glucose 192 H Lactic Acid Calcium Magnesium Ferritin Total Bilirubin Direct Bilirubin AST ALT Alkaline Phosphatase Lactate Dehydrogenase C-Reactive Protein Total Protein 6.1 L Albumin 2.9 L Triglycerides Lipase Arterial Blood Glucose Arterial Blood Ionized Calcium Urine WBC (Auto) Coronavirus (PCR) SARS-CoV-2 IgG Ab Crossmatch 06/26/20 06/26/20 06/26/20 04:15 04:49 05:28 WBC RBC Hgb Hct MCV MCH MCHC RDW Lymph % (Auto) [place] % (Auto) Lymph # (Auto) [place] # (Auto) Baso # (Auto) Seg Neutrophils % Seg Neuts % (Manual) Lymphocytes % (Manual) Nucleated RBC % Seg Neutrophils # Seg Neutrophils # Man Lymphocytes # (Manual) Monocytes # (Manual) Eosinophils # (Manual) PT INR APTT D-Dimer Heparin Anti-Xa Level ABG pH 7.453 H POC ABG pCO2 59.6 H POC ABG pO2 ABG pO2 ABG HCO3 ABG O2 Saturation ABG Base Excess ABG Hemoglobin 10.0 L ABG Oxyhemoglobin ABG Sodium 134.2 L ABG Potassium 3.3 L ABG Chloride 92.0 L ABG Glucose 305 H Oxyhemoglobin Carboxyhemoglobin Sodium Potassium Chloride Carbon Dioxide BUN Creatinine Glucose POC Glucose 234 H Lactic Acid Calcium Magnesium Ferritin Total Bilirubin Direct Bilirubin AST ALT Alkaline Phosphatase Lactate Dehydrogenase C-Reactive Protein Total Protein Albumin Triglycerides 203 H Lipase Arterial Blood Glucose 305 H Arterial Blood Ionized Calcium Urine WBC (Auto) Coronavirus (PCR) SARS-CoV-2 IgG Ab Crossmatch 06/26/20 06/26/20 06/26/20 11:58 17:58 21:32 WBC RBC Hgb Hct MCV MCH MCHC RDW Lymph % (Auto) [place] % (Auto) Lymph # (Auto) [place] # (Auto) Baso # (Auto) Seg Neutrophils % Seg Neuts % (Manual) Lymphocytes % (Manual) Nucleated RBC % Seg Neutrophils # Seg Neutrophils # Man Lymphocytes # (Manual) Monocytes # (Manual) Eosinophils # (Manual) PT INR APTT D-Dimer Heparin Anti-Xa Level ABG pH POC ABG pCO2 POC ABG pO2 ABG pO2 ABG HCO3 ABG O2 Saturation ABG Base Excess ABG Hemoglobin ABG Oxyhemoglobin ABG Sodium ABG Potassium ABG Chloride ABG Glucose Oxyhemoglobin Carboxyhemoglobin Sodium Potassium Chloride Carbon Dioxide BUN Creatinine Glucose POC Glucose 198 H 193 H 191 H Lactic Acid Calcium Magnesium Ferritin Total Bilirubin Direct Bilirubin AST ALT Alkaline Phosphatase Lactate Dehydrogenase C-Reactive Protein Total Protein Albumin Triglycerides Lipase Arterial Blood Glucose Arterial Blood Ionized Calcium Urine WBC (Auto) Coronavirus (PCR) SARS-CoV-2 IgG Ab Crossmatch 06/26/20 06/27/20 06/27/20 23:40 04:35 05:32 WBC RBC Hgb Hct MCV MCH MCHC RDW Lymph % (Auto) [place] % (Auto) Lymph # (Auto) [place] # (Auto) Baso # (Auto) Seg Neutrophils % Seg Neuts % (Manual) Lymphocytes % (Manual) Nucleated RBC % Seg Neutrophils # Seg Neutrophils # Man Lymphocytes # (Manual) Monocytes # (Manual) Eosinophils # (Manual) PT INR APTT D-Dimer Heparin Anti-Xa Level ABG pH 7.464 H POC ABG pCO2 60.8 H POC ABG pO2 ABG pO2 ABG HCO3 ABG O2 Saturation ABG Base Excess ABG Hemoglobin 10.1 L ABG Oxyhemoglobin ABG Sodium ABG Potassium 2.9 L ABG Chloride 92.0 L ABG Glucose 298 H Oxyhemoglobin Carboxyhemoglobin Sodium Potassium Chloride Carbon Dioxide BUN Creatinine Glucose POC Glucose 241 H 211 H Lactic Acid Calcium Magnesium Ferritin Total Bilirubin Direct Bilirubin AST ALT Alkaline Phosphatase Lactate Dehydrogenase C-Reactive Protein Total Protein Albumin Triglycerides Lipase Arterial Blood Glucose 298 H Arterial Blood Ionized Calcium Urine WBC (Auto) Coronavirus (PCR) SARS-CoV-2 IgG Ab Crossmatch 06/27/20 06/27/20 06/27/20 12:37 18:08 20:52 WBC RBC Hgb Hct MCV MCH MCHC RDW Lymph % (Auto) [place] % (Auto) Lymph # (Auto) [place] # (Auto) Baso # (Auto) Seg Neutrophils % Seg Neuts % (Manual) Lymphocytes % (Manual) Nucleated RBC % Seg Neutrophils # Seg Neutrophils # Man Lymphocytes # (Manual) Monocytes # (Manual) Eosinophils # (Manual) PT INR APTT D-Dimer Heparin Anti-Xa Level ABG pH POC ABG pCO2 POC ABG pO2 ABG pO2 ABG HCO3 ABG O2 Saturation ABG Base Excess ABG Hemoglobin ABG Oxyhemoglobin ABG Sodium ABG Potassium ABG Chloride ABG Glucose Oxyhemoglobin Carboxyhemoglobin Sodium Potassium Chloride Carbon Dioxide BUN Creatinine Glucose POC Glucose 182 H 197 H 195 H Lactic Acid Calcium Magnesium Ferritin Total Bilirubin Direct Bilirubin AST ALT Alkaline Phosphatase Lactate Dehydrogenase C-Reactive Protein Total Protein Albumin Triglycerides Lipase Arterial Blood Glucose Arterial Blood Ionized Calcium Urine WBC (Auto) Coronavirus (PCR) SARS-CoV-2 IgG Ab Crossmatch 06/27/20 06/28/20 06/28/20 Unknown 04:17 04:50 WBC RBC Hgb Hct MCV MCH MCHC RDW Lymph % (Auto) [place] % (Auto) Lymph # (Auto) [place] # (Auto) Baso # (Auto) Seg Neutrophils % Seg Neuts % (Manual) Lymphocytes % (Manual) Nucleated RBC % Seg Neutrophils # Seg Neutrophils # Man Lymphocytes # (Manual) Monocytes # (Manual) Eosinophils # (Manual) PT INR APTT D-Dimer Heparin Anti-Xa Level ABG pH POC ABG pCO2 58.6 H POC ABG pO2 60.1 L ABG pO2 ABG HCO3 ABG O2 Saturation ABG Base Excess ABG Hemoglobin 10.0 L ABG Oxyhemoglobin ABG Sodium 125.3 L ABG Potassium ABG Chloride 93.0 L ABG Glucose 308 H Oxyhemoglobin Carboxyhemoglobin Sodium Potassium 2.9 L* Chloride 93.4 L Carbon Dioxide 42 H* BUN Creatinine 0.3 L Glucose 211 H POC Glucose 252 H Lactic Acid Calcium 8.1 L Magnesium Ferritin Total Bilirubin Direct Bilirubin AST ALT Alkaline Phosphatase Lactate Dehydrogenase C-Reactive Protein Total Protein 5.1 L Albumin 2.4 L Triglycerides Lipase Arterial Blood Glucose 308 H Arterial Blood Ionized Calcium Urine WBC (Auto) Coronavirus (PCR) SARS-CoV-2 IgG Ab Crossmatch 06/28/20 06/28/20 06/28/20 06:35 06:35 11:36 WBC 18.9 H RBC 2.85 L Hgb 9.5 L Hct 28.4 L MCV 100 H MCH 33 H MCHC RDW 17.3 H Lymph % (Auto) [place] % (Auto) Lymph # (Auto) [place] # (Auto) Baso # (Auto) Seg Neutrophils % 88.6 H Seg Neuts % (Manual) 95.0 H Lymphocytes % (Manual) 1.0 L Nucleated RBC % Seg Neutrophils # 15.9 H Seg Neutrophils # Man 18.0 H Lymphocytes # (Manual) 0.2 L Monocytes # (Manual) Eosinophils # (Manual) PT INR APTT D-Dimer Heparin Anti-Xa Level ABG pH POC ABG pCO2 POC ABG pO2 ABG pO2 ABG HCO3 ABG O2 Saturation ABG Base Excess ABG Hemoglobin ABG Oxyhemoglobin ABG Sodium ABG Potassium ABG Chloride ABG Glucose Oxyhemoglobin Carboxyhemoglobin Sodium Potassium Chloride 94.2 L Carbon Dioxide 38 H BUN Creatinine 0.3 L Glucose 228 H POC Glucose 243 H Lactic Acid Calcium Magnesium Ferritin Total Bilirubin Direct Bilirubin AST ALT Alkaline Phosphatase Lactate Dehydrogenase C-Reactive Protein Total Protein 6.1 L Albumin 2.7 L Triglycerides Lipase Arterial Blood Glucose Arterial Blood Ionized Calcium Urine WBC (Auto) Coronavirus (PCR) SARS-CoV-2 IgG Ab Crossmatch 06/28/20 06/28/20 06/29/20 16:53 21:10 00:06 WBC RBC Hgb Hct MCV MCH MCHC RDW Lymph % (Auto) [place] % (Auto) Lymph # (Auto) [place] # (Auto) Baso # (Auto) Seg Neutrophils % Seg Neuts % (Manual) Lymphocytes % (Manual) Nucleated RBC % Seg Neutrophils # Seg Neutrophils # Man Lymphocytes # (Manual) Monocytes # (Manual) Eosinophils # (Manual) PT INR APTT D-Dimer Heparin Anti-Xa Level ABG pH POC ABG pCO2 POC ABG pO2 ABG pO2 ABG HCO3 ABG O2 Saturation ABG Base Excess ABG Hemoglobin ABG Oxyhemoglobin ABG Sodium ABG Potassium ABG Chloride ABG Glucose Oxyhemoglobin Carboxyhemoglobin Sodium Potassium Chloride Carbon Dioxide BUN Creatinine Glucose POC Glucose 211 H 195 H 200 H Lactic Acid Calcium Magnesium Ferritin Total Bilirubin Direct Bilirubin AST ALT Alkaline Phosphatase Lactate Dehydrogenase C-Reactive Protein Total Protein Albumin Triglycerides Lipase Arterial Blood Glucose Arterial Blood Ionized Calcium Urine WBC (Auto) Coronavirus (PCR) SARS-CoV-2 IgG Ab Crossmatch 06/29/20 06/29/2006/29/20 03:11 04:00 04:00 WBC 18.8 H RBC 2.82 L Hgb 10.1 L Hct 28.5 L MCV 101 H MCH 36 H MCHC 36 H RDW 17.5 H Lymph % (Auto) 10.7 L [place] % (Auto) Lymph # (Auto) [place] # (Auto) 1.0 H Baso # (Auto) 0.3 H Seg Neutrophils % 82.2 H Seg Neuts % (Manual) Lymphocytes % (Manual) Nucleated RBC % Seg Neutrophils # 15.5 H Seg Neutrophils # Man Lymphocytes # (Manual) Monocytes # (Manual) Eosinophils # (Manual) PT INR APTT D-Dimer Heparin Anti-Xa Level ABG pH POC ABG pCO2 57.5 H POC ABG pO2 69.1 L ABG pO2 ABG HCO3 ABG O2 Saturation ABG Base Excess ABG Hemoglobin 10.2 L ABG Oxyhemoglobin 92.3 L ABG Sodium 130.7 L ABG Potassium 3.2 L ABG Chloride 93.0 L ABG Glucose 228 H Oxyhemoglobin Carboxyhemoglobin Sodium 134 L Potassium 3.3 L Chloride 89.5 L Carbon Dioxide 40 H BUN Creatinine 0.2 L Glucose 190 H POC Glucose Lactic Acid Calcium Magnesium Ferritin Total Bilirubin Direct Bilirubin AST < 5 L ALT < 5 L Alkaline Phosphatase Lactate Dehydrogenase C-Reactive Protein Total Protein 5.9 L Albumin 2.2 L Triglycerides Lipase Arterial Blood Glucose 228 H Arterial Blood Ionized Calcium Urine WBC (Auto) Coronavirus (PCR) SARS-CoV-2 IgG Ab Crossmatch 06/29/20 06/29/20 06/29/20 05:00 05:23 09:36 WBC RBC Hgb Hct MCV MCH MCHC RDW Lymph % (Auto) [place] % (Auto) Lymph # (Auto) [place] # (Auto) Baso # (Auto) Seg Neutrophils % Seg Neuts % (Manual) Lymphocytes % (Manual) Nucleated RBC % Seg Neutrophils # Seg Neutrophils # Man Lymphocytes # (Manual) Monocytes # (Manual) Eosinophils # (Manual) PT INR APTT D-Dimer Heparin Anti-Xa Level ABG pH POC ABG pCO2 POC ABG pO2 ABG pO2 ABG HCO3 ABG O2 Saturation ABG Base Excess ABG Hemoglobin ABG Oxyhemoglobin ABG Sodium ABG Potassium ABG Chloride ABG Glucose Oxyhemoglobin Carboxyhemoglobin Sodium Potassium Chloride Carbon Dioxide BUN Creatinine Glucose POC Glucose 165 H Lactic Acid Calcium Magnesium Ferritin Total Bilirubin Direct Bilirubin AST ALT Alkaline Phosphatase Lactate Dehydrogenase C-Reactive Protein Total Protein Albumin Triglycerides 1544 H 1799 H Lipase Arterial Blood Glucose Arterial Blood Ionized Calcium Urine WBC (Auto) Coronavirus (PCR) SARS-CoV-2 IgG Ab Crossmatch 06/29/20 06/29/20 06/29/20 09:36 12:02 18:00 WBC RBC Hgb Hct MCV MCH MCHC RDW Lymph % (Auto) [place] % (Auto) Lymph # (Auto) [place] # (Auto) Baso # (Auto) Seg Neutrophils % Seg Neuts % (Manual) Lymphocytes % (Manual) Nucleated RBC % Seg Neutrophils # Seg Neutrophils # Man Lymphocytes # (Manual) Monocytes # (Manual) Eosinophils # (Manual) PT INR APTT D-Dimer Heparin Anti-Xa Level ABG pH POC ABG pCO2 POC ABG pO2 ABG pO2 ABG HCO3 ABG O2 Saturation ABG Base Excess ABG Hemoglobin ABG Oxyhemoglobin ABG Sodium ABG Potassium ABG Chloride ABG Glucose Oxyhemoglobin Carboxyhemoglobin Sodium Potassium Chloride Carbon Dioxide BUN Creatinine Glucose POC Glucose 197 H 187 H Lactic Acid Calcium Magnesium Ferritin Total Bilirubin Direct Bilirubin AST ALT Alkaline Phosphatase Lactate Dehydrogenase C-Reactive Protein Total Protein Albumin Triglycerides Lipase 86 H Arterial Blood Glucose Arterial Blood Ionized Calcium Urine WBC (Auto) Coronavirus (PCR) SARS-CoV-2 IgG Ab Crossmatch 06/29/20 06/30/20 06/30/20 23:33 03:46 05:50 WBC RBC Hgb Hct MCV MCH MCHC RDW Lymph % (Auto) [place] % (Auto) Lymph # (Auto) [place] # (Auto) Baso # (Auto) Seg Neutrophils % Seg Neuts % (Manual) Lymphocytes % (Manual) Nucleated RBC % Seg Neutrophils # Seg Neutrophils # Man Lymphocytes # (Manual) Monocytes # (Manual) Eosinophils # (Manual) PT INR APTT D-Dimer Heparin Anti-Xa Level ABG pH 7.466 H POC ABG pCO2 57.3 H POC ABG pO2 66.1 L ABG pO2 ABG HCO3 ABG O2 Saturation ABG Base Excess ABG Hemoglobin 10.2 L ABG Oxyhemoglobin 92.3 L ABG Sodium 134.4 L ABG Potassium 3.2 L ABG Chloride 94.0 L ABG Glucose 178 H Oxyhemoglobin Carboxyhemoglobin Sodium Potassium Chloride Carbon Dioxide BUN Creatinine Glucose POC Glucose 170 H 170 H Lactic Acid Calcium Magnesium Ferritin Total Bilirubin Direct Bilirubin AST ALT Alkaline Phosphatase Lactate Dehydrogenase C-Reactive Protein Total Protein Albumin Triglycerides Lipase Arterial Blood Glucose 178 H Arterial Blood Ionized Calcium Urine WBC (Auto) Coronavirus (PCR) SARS-CoV-2 IgG Ab Crossmatch 06/30/20 06/30/20 06/30/20 07:00 07:00 12:04 WBC 15.6 H RBC 2.91 L Hgb 9.8 L Hct 29.7 L MCV 102 H MCH 34 H MCHC RDW 17.8 H Lymph % (Auto) [place] % (Auto) Lymph # (Auto) [place] # (Auto) Baso # (Auto) Seg Neutrophils % Seg Neuts % (Manual) Lymphocytes % (Manual) 5.0 L Nucleated RBC % Seg Neutrophils # Seg Neutrophils # Man 14.8 H Lymphocytes # (Manual) 0.8 L Monocytes # (Manual) Eosinophils # (Manual) PT INR APTT D-Dimer Heparin Anti-Xa Level ABG pH POC ABG pCO2 POC ABG pO2 ABG pO2 ABG HCO3 ABG O2 Saturation ABG Base Excess ABG Hemoglobin ABG Oxyhemoglobin ABG Sodium ABG Potassium ABG Chloride ABG Glucose Oxyhemoglobin Carboxyhemoglobin Sodium Potassium Chloride 93.3 L Carbon Dioxide 43 H* BUN Creatinine 0.3 L Glucose 260 H POC Glucose 245 H Lactic Acid Calcium Magnesium Ferritin Total Bilirubin Direct Bilirubin AST ALT Alkaline Phosphatase Lactate Dehydrogenase C-Reactive Protein Total Protein Albumin 2.8 L Triglycerides 452 H Lipase Arterial Blood Glucose Arterial Blood Ionized Calcium Urine WBC (Auto) Coronavirus (PCR) SARS-CoV-2 IgG Ab Crossmatch 06/30/20 07/01/20 07/01/20 17:32 00:02 05:02 WBC RBC Hgb Hct MCV MCH MCHC RDW Lymph % (Auto) [place] % (Auto) Lymph # (Auto) [place] # (Auto) Baso # (Auto) Seg Neutrophils % Seg Neuts % (Manual) Lymphocytes % (Manual) Nucleated RBC % Seg Neutrophils # Seg Neutrophils # Man Lymphocytes # (Manual) Monocytes # (Manual) Eosinophils # (Manual) PT INR APTT D-Dimer Heparin Anti-Xa Level ABG pH POC ABG pCO2 58.1 H POC ABG pO2 ABG pO2 ABG HCO3 ABG O2 Saturation ABG Base Excess ABG Hemoglobin 11.2 L ABG Oxyhemoglobin ABG Sodium 132.7 L ABG Potassium ABG Chloride 92.0 L ABG Glucose 238 H Oxyhemoglobin Carboxyhemoglobin Sodium Potassium Chloride Carbon Dioxide BUN Creatinine Glucose POC Glucose 209 H 208 H Lactic Acid Calcium Magnesium Ferritin Total Bilirubin Direct Bilirubin AST ALT Alkaline Phosphatase Lactate Dehydrogenase C-Reactive Protein Total Protein Albumin Triglycerides Lipase Arterial Blood Glucose 238 H Arterial Blood Ionized Calcium Urine WBC (Auto) Coronavirus (PCR) SARS-CoV-2 IgG Ab Crossmatch 07/01/20 07/01/20 07/01/20 06:16 06:41 06:41 WBC 18.1 H RBC 2.33 L Hgb 7.1 L Hct 21.3 L D MCV MCH MCHC RDW Lymph % (Auto) [place] % (Auto) Lymph # (Auto) [place] # (Auto) Baso # (Auto) Seg Neutrophils % Seg Neuts % (Manual) 82.0 H Lymphocytes % (Manual) 7.0 L Nucleated RBC % 1.0 H Seg Neutrophils # Seg Neutrophils # Man 14.8 H Lymphocytes # (Manual) Monocytes # (Manual) 1.1 H Eosinophils # (Manual) 0.5 H PT INR APTT D-Dimer Heparin Anti-Xa Level < 0.10 L ABG pH POC ABG pCO2 POC ABG pO2 ABG pO2 ABG HCO3 ABG O2 Saturation ABG Base Excess ABG Hemoglobin ABG Oxyhemoglobin ABG Sodium ABG Potassium ABG Chloride ABG Glucose Oxyhemoglobin Carboxyhemoglobin Sodium Potassium Chloride Carbon Dioxide BUN Creatinine Glucose POC Glucose 180 H Lactic Acid Calcium Magnesium Ferritin Total Bilirubin Direct Bilirubin AST ALT Alkaline Phosphatase Lactate Dehydrogenase C-Reactive Protein Total Protein Albumin Triglycerides Lipase Arterial Blood Glucose Arterial Blood Ionized Calcium Urine WBC (Auto) Coronavirus (PCR) SARS-CoV-2 IgG Ab Crossmatch 07/01/20 07/01/20 07/01/20 08:11 12:04 16:16 WBC RBC Hgb Hct MCV MCH MCHC RDW Lymph % (Auto) [place] % (Auto) Lymph # (Auto) [place] # (Auto) Baso # (Auto) Seg Neutrophils % Seg Neuts % (Manual) Lymphocytes % (Manual) Nucleated RBC % Seg Neutrophils # Seg Neutrophils # Man Lymphocytes # (Manual) Monocytes # (Manual) Eosinophils # (Manual) PT INR APTT D-Dimer Heparin Anti-Xa Level 1.02 H ABG pH POC ABG pCO2 POC ABG pO2 ABG pO2 ABG HCO3 ABG O2 Saturation ABG Base Excess ABG Hemoglobin ABG Oxyhemoglobin ABG Sodium ABG Potassium ABG Chloride ABG Glucose Oxyhemoglobin Carboxyhemoglobin Sodium 135 L Potassium 3.0 L Chloride 93.1 L Carbon Dioxide 40 H BUN Creatinine 0.3 L Glucose 140 H POC Glucose 223 H Lactic Acid Calcium Magnesium Ferritin Total Bilirubin Direct Bilirubin AST ALT Alkaline Phosphatase Lactate Dehydrogenase C-Reactive Protein Total Protein Albumin Triglycerides Lipase Arterial Blood Glucose Arterial Blood Ionized Calcium Urine WBC (Auto) Coronavirus (PCR) SARS-CoV-2 IgG Ab Crossmatch 07/01/20 07/01/20 07/02/20 17:09 23:19 00:56 WBC RBC Hgb Hct MCV MCH MCHC RDW Lymph % (Auto) [place] % (Auto) Lymph # (Auto) [place] # (Auto) Baso # (Auto) Seg Neutrophils % Seg Neuts % (Manual) Lymphocytes % (Manual) Nucleated RBC % Seg Neutrophils # Seg Neutrophils # Man Lymphocytes # (Manual) Monocytes # (Manual) Eosinophils # (Manual) PT INR APTT D-Dimer Heparin Anti-Xa Level 0.22 L ABG pH POC ABG pCO2 POC ABG pO2 ABG pO2 ABG HCO3 ABG O2 Saturation ABG Base Excess ABG Hemoglobin ABG Oxyhemoglobin ABG Sodium ABG Potassium ABG Chloride ABG Glucose Oxyhemoglobin Carboxyhemoglobin Sodium Potassium Chloride Carbon Dioxide BUN Creatinine Glucose POC Glucose 233 H 255 H Lactic Acid Calcium Magnesium Ferritin Total Bilirubin Direct Bilirubin AST ALT Alkaline Phosphatase Lactate Dehydrogenase C-Reactive Protein Total Protein Albumin Triglycerides Lipase Arterial Blood Glucose Arterial Blood Ionized Calcium Urine WBC (Auto) Coronavirus (PCR) SARS-CoV-2 IgG Ab Crossmatch 07/02/20 07/02/20 07/02/20 03:51 05:35 11:39 WBC RBC Hgb Hct MCV MCH MCHC RDW Lymph % (Auto) [place] % (Auto) Lymph # (Auto) [place] # (Auto) Baso # (Auto) Seg Neutrophils % Seg Neuts % (Manual) Lymphocytes % (Manual) Nucleated RBC % Seg Neutrophils # Seg Neutrophils # Man Lymphocytes # (Manual) Monocytes # (Manual) Eosinophils # (Manual) PT INR APTT D-Dimer Heparin Anti-Xa Level ABG pH POC ABG pCO2 54.9 H POC ABG pO2 52.1 L ABG pO2 ABG HCO3 ABG O2 Saturation ABG Base Excess ABG Hemoglobin 11.9 L ABG Oxyhemoglobin 82.8 L ABG Sodium 130.2 L ABG Potassium ABG Chloride 92.0 L ABG Glucose 249 H Oxyhemoglobin Carboxyhemoglobin 1.9 H Sodium Potassium Chloride Carbon Dioxide BUN Creatinine Glucose POC Glucose 205 H 235 H Lactic Acid Calcium Magnesium Ferritin Total Bilirubin Direct Bilirubin AST ALT Alkaline Phosphatase Lactate Dehydrogenase C-Reactive Protein Total Protein Albumin Triglycerides Lipase Arterial Blood Glucose 249 H Arterial Blood Ionized Calcium Urine WBC (Auto) Coronavirus (PCR) SARS-CoV-2 IgG Ab Crossmatch 07/02/20 07/02/20 07/02/20 16:08 16:08 17:54 WBC 19.8 H RBC 3.28 L Hgb 10.7 L D Hct 32.7 L D MCV 100 H MCH 33 H MCHC RDW 17.2 H Lymph % (Auto) [place] % (Auto) Lymph # (Auto) [place] # (Auto) Baso # (Auto) Seg Neutrophils % Seg Neuts % (Manual) Lymphocytes % (Manual) Nucleated RBC % Seg Neutrophils # Seg Neutrophils # Man Lymphocytes # (Manual) Monocytes # (Manual) Eosinophils # (Manual) PT INR APTT D-Dimer Heparin Anti-Xa Level ABG pH POC ABG pCO2 POC ABG pO2 ABG pO2 ABG HCO3 ABG O2 Saturation ABG Base Excess ABG Hemoglobin ABG Oxyhemoglobin ABG Sodium ABG Potassium ABG Chloride ABG Glucose Oxyhemoglobin Carboxyhemoglobin Sodium 136 L Potassium Chloride 92.4 L Carbon Dioxide 35 H BUN Creatinine 0.3 L Glucose 203 H POC Glucose 175 H Lactic Acid Calcium Magnesium Ferritin Total Bilirubin Direct Bilirubin AST ALT Alkaline Phosphatase Lactate Dehydrogenase C-Reactive Protein Total Protein Albumin Triglycerides Lipase Arterial Blood Glucose Arterial Blood Ionized Calcium Urine WBC (Auto) Coronavirus (PCR) SARS-CoV-2 IgG Ab Crossmatch 07/02/20 07/03/20 07/03/20 23:46 03:25 05:54 WBC RBC Hgb Hct MCV MCH MCHC RDW Lymph % (Auto) [place] % (Auto) Lymph # (Auto) [place] # (Auto) Baso # (Auto) Seg Neutrophils % Seg Neuts % (Manual) Lymphocytes % (Manual) Nucleated RBC % Seg Neutrophils # Seg Neutrophils # Man Lymphocytes # (Manual) Monocytes # (Manual) Eosinophils # (Manual) PT INR APTT D-Dimer Heparin Anti-Xa Level ABG pH 7.468 H POC ABG pCO2 51.5 H POC ABG pO2 ABG pO2 ABG HCO3 ABG O2 Saturation ABG Base Excess ABG Hemoglobin ABG Oxyhemoglobin ABG Sodium 130.2 L ABG Potassium ABG Chloride 91.0 L ABG Glucose 210 H Oxyhemoglobin Carboxyhemoglobin 1.6 H Sodium Potassium Chloride Carbon Dioxide BUN Creatinine Glucose POC Glucose 173 H 125 H Lactic Acid Calcium Magnesium Ferritin Total Bilirubin Direct Bilirubin AST ALT Alkaline Phosphatase Lactate Dehydrogenase C-Reactive Protein Total Protein Albumin Triglycerides Lipase Arterial Blood Glucose 210 H Arterial Blood Ionized Calcium Urine WBC (Auto) Coronavirus (PCR) SARS-CoV-2 IgG Ab Crossmatch 07/03/20 07/03/20 07/03/20 11:43 12:20 12:20 WBC 16.5 H RBC 3.13 L Hgb 10.4 L Hct 31.8 L MCV 102 H MCH 33 H MCHC RDW 17.2 H Lymph % (Auto) [place] % (Auto) Lymph # (Auto) [place] # (Auto) Baso # (Auto) Seg Neutrophils % Seg Neuts % (Manual) Lymphocytes % (Manual) Nucleated RBC % Seg Neutrophils # Seg Neutrophils # Man Lymphocytes # (Manual) Monocytes # (Manual) Eosinophils # (Manual) PT INR APTT D-Dimer Heparin Anti-Xa Level ABG pH POC ABG pCO2 POC ABG pO2 ABG pO2 ABG HCO3 ABG O2 Saturation ABG Base Excess ABG Hemoglobin ABG Oxyhemoglobin ABG Sodium ABG Potassium ABG Chloride ABG Glucose Oxyhemoglobin Carboxyhemoglobin Sodium 132 L Potassium Chloride 88.5 L Carbon Dioxide 37 H BUN Creatinine 0.3 L Glucose 230 H POC Glucose 223 H Lactic Acid Calcium Magnesium Ferritin Total Bilirubin Direct Bilirubin AST ALT Alkaline Phosphatase Lactate Dehydrogenase C-Reactive Protein Total Protein Albumin Triglycerides Lipase Arterial Blood Glucose Arterial Blood Ionized Calcium Urine WBC (Auto) Coronavirus (PCR) SARS-CoV-2 IgG Ab Crossmatch 07/03/20 07/03/20 07/04/20 17:24 21:41 00:54 WBC RBC Hgb Hct MCV MCH MCHC RDW Lymph % (Auto) [place] % (Auto) Lymph # (Auto) [place] # (Auto) Baso # (Auto) Seg Neutrophils % Seg Neuts % (Manual) Lymphocytes % (Manual) Nucleated RBC % Seg Neutrophils # Seg Neutrophils # Man Lymphocytes # (Manual) Monocytes # (Manual) Eosinophils # (Manual) PT INR APTT D-Dimer Heparin Anti-Xa Level ABG pH POC ABG pCO2 POC ABG pO2 ABG pO2 ABG HCO3 ABG O2 Saturation ABG Base Excess ABG Hemoglobin ABG Oxyhemoglobin ABG Sodium ABG Potassium ABG Chloride ABG Glucose Oxyhemoglobin Carboxyhemoglobin Sodium Potassium Chloride Carbon Dioxide BUN Creatinine Glucose POC Glucose 163 H 220 H 195 H Lactic Acid Calcium Magnesium Ferritin Total Bilirubin Direct Bilirubin AST ALT Alkaline Phosphatase Lactate Dehydrogenase C-Reactive Protein Total Protein Albumin Triglycerides Lipase Arterial Blood Glucose Arterial Blood Ionized Calcium Urine WBC (Auto) Coronavirus (PCR) SARS-CoV-2 IgG Ab Crossmatch 07/04/20 07/04/20 07/04/20 03:25 04:00 04:00 WBC 14.9 H RBC 2.91 L Hgb 9.5 L Hct 29.2 L MCV 100 H MCH 33 H MCHC RDW 16.7 H Lymph % (Auto) 8.4 L [place] % (Auto) Lymph # (Auto) [place] # (Auto) 1.1 H Baso # (Auto) Seg Neutrophils % 84.2 H Seg Neuts % (Manual) Lymphocytes % (Manual) Nucleated RBC % Seg Neutrophils # 12.6 H Seg Neutrophils # Man Lymphocytes # (Manual) Monocytes # (Manual) Eosinophils # (Manual) PT INR APTT D-Dimer Heparin Anti-Xa Level ABG pH 7.474 H POC ABG pCO2 POC ABG pO2 51.8 L ABG pO2 ABG HCO3 ABG O2 Saturation ABG Base Excess ABG Hemoglobin ABG Oxyhemoglobin ABG Sodium ABG Potassium ABG Chloride ABG Glucose Oxyhemoglobin Carboxyhemoglobin Sodium Potassium 3.4 L Chloride 92.1 L Carbon Dioxide 34 H BUN Creatinine 0.3 L Glucose 173 H POC Glucose Lactic Acid Calcium Magnesium Ferritin Total Bilirubin Direct Bilirubin AST ALT Alkaline Phosphatase Lactate Dehydrogenase C-Reactive Protein Total Protein Albumin Triglycerides Lipase Arterial Blood Glucose Arterial Blood Ionized Calcium Urine WBC (Auto) Coronavirus (PCR) SARS-CoV-2 IgG Ab Crossmatch 07/04/20 07/04/20 07/04/20 06:18 11:39 17:18 WBC RBC Hgb Hct MCV MCH MCHC RDW Lymph % (Auto) [place] % (Auto) Lymph # (Auto) [place] # (Auto) Baso # (Auto) Seg Neutrophils % Seg Neuts % (Manual) Lymphocytes % (Manual) Nucleated RBC % Seg Neutrophils # Seg Neutrophils # Man Lymphocytes # (Manual) Monocytes # (Manual) Eosinophils # (Manual) PT INR APTT D-Dimer Heparin Anti-Xa Level ABG pH POC ABG pCO2 POC ABG pO2 ABG pO2 ABG HCO3 ABG O2 Saturation ABG Base Excess ABG Hemoglobin ABG Oxyhemoglobin ABG Sodium ABG Potassium ABG Chloride ABG Glucose Oxyhemoglobin Carboxyhemoglobin Sodium Potassium Chloride Carbon Dioxide BUN Creatinine Glucose POC Glucose 158 H 257 H 148 H Lactic Acid Calcium Magnesium Ferritin Total Bilirubin Direct Bilirubin AST ALT Alkaline Phosphatase Lactate Dehydrogenase C-Reactive Protein Total Protein Albumin Triglycerides Lipase Arterial Blood Glucose Arterial Blood Ionized Calcium Urine WBC (Auto) Coronavirus (PCR) SARS-CoV-2 IgG Ab Crossmatch 07/04/20 07/05/20 07/05/20 23:23 03:13 05:18 WBC 13.3 H RBC 2.90 L Hgb 9.8 L Hct 29.3 L MCV 101 H MCH 34 H MCHC RDW 17.0 H Lymph % (Auto) 11.1 L [place] % (Auto) Lymph # (Auto) [place] # (Auto) Baso # (Auto) Seg Neutrophils % 82.3 H Seg Neuts % (Manual) Lymphocytes % (Manual) Nucleated RBC % Seg Neutrophils # 10.9 H Seg Neutrophils # Man Lymphocytes # (Manual) Monocytes # (Manual) Eosinophils # (Manual) PT INR APTT D-Dimer Heparin Anti-Xa Level ABG pH 7.48 H POC ABG pCO2 52.0 H POC ABG pO2 ABG pO2 ABG HCO3 ABG O2 Saturation ABG Base Excess ABG Hemoglobin 10.0 L ABG Oxyhemoglobin ABG Sodium 131.0 L ABG Potassium 3.3 L ABG Chloride 93.0 L ABG Glucose 177 H Oxyhemoglobin Carboxyhemoglobin Sodium Potassium Chloride Carbon Dioxide BUN Creatinine Glucose POC Glucose 227 H Lactic Acid Calcium Magnesium Ferritin Total Bilirubin Direct Bilirubin AST ALT Alkaline Phosphatase Lactate Dehydrogenase C-Reactive Protein Total Protein Albumin Triglycerides Lipase Arterial Blood Glucose 177 H Arterial Blood Ionized Calcium Urine WBC (Auto) Coronavirus (PCR) SARS-CoV-2 IgG Ab Crossmatch 07/05/20 07/05/20 07/05/20 05:18 05:25 05:57 WBC RBC Hgb Hct MCV MCH MCHC RDW Lymph % (Auto) [place] % (Auto) Lymph # (Auto) [place] # (Auto) Baso # (Auto) Seg Neutrophils % Seg Neuts % (Manual) Lymphocytes % (Manual) Nucleated RBC % Seg Neutrophils # Seg Neutrophils # Man Lymphocytes # (Manual) Monocytes # (Manual) Eosinophils # (Manual) PT INR APTT D-Dimer Heparin Anti-Xa Level ABG pH 7.519 H POC ABG pCO2 POC ABG pO2 198.6 H ABG pO2 ABG HCO3 ABG O2 Saturation ABG Base Excess ABG Hemoglobin 10.3 L ABG Oxyhemoglobin 98.7 H ABG Sodium 133.6 L ABG Potassium 3.3 L ABG Chloride 93.0 L ABG Glucose 175 H Oxyhemoglobin Carboxyhemoglobin Sodium Potassium 3.4 L Chloride 92.5 L Carbon Dioxide 36 H BUN Creatinine 0.3 L Glucose 148 H POC Glucose 170 H Lactic Acid Calcium Magnesium Ferritin Total Bilirubin Direct Bilirubin AST ALT Alkaline Phosphatase Lactate Dehydrogenase C-Reactive Protein Total Protein Albumin Triglycerides Lipase Arterial Blood Glucose 175 H Arterial Blood Ionized Calcium Urine WBC (Auto) Coronavirus (PCR) SARS-CoV-2 IgG Ab Crossmatch 07/05/20 07/05/20 07/06/20 11:37 18:39 00:04 WBC RBC Hgb Hct MCV MCH MCHC RDW Lymph % (Auto) [place] % (Auto) Lymph # (Auto) [place] # (Auto) Baso # (Auto) Seg Neutrophils % Seg Neuts % (Manual) Lymphocytes % (Manual) Nucleated RBC % Seg Neutrophils # Seg Neutrophils # Man Lymphocytes # (Manual) Monocytes # (Manual) Eosinophils # (Manual) PT INR APTT D-Dimer Heparin Anti-Xa Level ABG pH POC ABG pCO2 POC ABG pO2 ABG pO2 ABG HCO3 ABG O2 Saturation ABG Base Excess ABG Hemoglobin ABG Oxyhemoglobin ABG Sodium ABG Potassium ABG Chloride ABG Glucose Oxyhemoglobin Carboxyhemoglobin Sodium Potassium Chloride Carbon Dioxide BUN Creatinine Glucose POC Glucose 195 H 200 H 222 H Lactic Acid Calcium Magnesium Ferritin Total Bilirubin Direct Bilirubin AST ALT Alkaline Phosphatase Lactate Dehydrogenase C-Reactive Protein Total Protein Albumin Triglycerides Lipase Arterial Blood Glucose Arterial Blood Ionized Calcium Urine WBC (Auto) Coronavirus (PCR) SARS-CoV-2 IgG Ab Crossmatch 07/06/20 07/06/20 07/06/20 05:25 06:52 06:52 WBC 15.8 H RBC 3.17 L Hgb 10.4 L Hct 31.5 L MCV 99 H MCH 33 H MCHC RDW 17.0 H Lymph % (Auto) [place] % (Auto) Lymph # (Auto) [place] # (Auto) Baso # (Auto) Seg Neutrophils % Seg Neuts % (Manual) Lymphocytes % (Manual) Nucleated RBC % Seg Neutrophils # Seg Neutrophils # Man Lymphocytes # (Manual) Monocytes # (Manual) Eosinophils # (Manual) PT INR APTT D-Dimer Heparin Anti-Xa Level ABG pH POC ABG pCO2 POC ABG pO2 ABG pO2 ABG HCO3 ABG O2 Saturation ABG Base Excess ABG Hemoglobin ABG Oxyhemoglobin ABG Sodium ABG Potassium ABG Chloride ABG Glucose Oxyhemoglobin Carboxyhemoglobin Sodium 135 L Potassium 3.4 L Chloride 91.9 L Carbon Dioxide 38 H BUN Creatinine 0.3 L Glucose 189 H POC Glucose 165 H Lactic Acid Calcium Magnesium Ferritin Total Bilirubin Direct Bilirubin AST ALT Alkaline Phosphatase Lactate Dehydrogenase C-Reactive Protein Total Protein Albumin Triglycerides Lipase Arterial Blood Glucose Arterial Blood Ionized Calcium Urine WBC (Auto) Coronavirus (PCR) SARS-CoV-2 IgG Ab Crossmatch 07/06/20 07/06/20 07/06/20 13:01 18:04 23:08 WBC RBC Hgb Hct MCV MCH MCHC RDW Lymph % (Auto) [place] % (Auto) Lymph # (Auto) [place] # (Auto) Baso # (Auto) Seg Neutrophils % Seg Neuts % (Manual) Lymphocytes % (Manual) Nucleated RBC % Seg Neutrophils # Seg Neutrophils # Man Lymphocytes # (Manual) Monocytes # (Manual) Eosinophils # (Manual) PT INR APTT D-Dimer Heparin Anti-Xa Level ABG pH POC ABG pCO2 POC ABG pO2 ABG pO2 ABG HCO3 ABG O2 Saturation ABG Base Excess ABG Hemoglobin ABG Oxyhemoglobin ABG Sodium ABG Potassium ABG Chloride ABG Glucose Oxyhemoglobin Carboxyhemoglobin Sodium Potassium Chloride Carbon Dioxide BUN Creatinine Glucose POC Glucose 195 H 169 H 173 H Lactic Acid Calcium Magnesium Ferritin Total Bilirubin Direct Bilirubin AST ALT Alkaline Phosphatase Lactate Dehydrogenase C-Reactive Protein Total Protein Albumin Triglycerides Lipase Arterial Blood Glucose Arterial Blood Ionized Calcium Urine WBC (Auto) Coronavirus (PCR) SARS-CoV-2 IgG Ab Crossmatch 07/07/20 07/07/20 07/07/20 05:35 05:35 05:39 WBC 17.6 H RBC 3.16 L Hgb 10.4 L Hct 31.5 L MCV 100 H MCH 33 H MCHC RDW 16.7 H Lymph % (Auto) 11.1 L [place] % (Auto) Lymph # (Auto) [place] # (Auto) 1.0 H Baso # (Auto) Seg Neutrophils % 83.0 H Seg Neuts % (Manual) Lymphocytes % (Manual) Nucleated RBC % Seg Neutrophils # 14.6 H Seg Neutrophils # Man Lymphocytes # (Manual) Monocytes # (Manual) Eosinophils # (Manual) PT INR APTT D-Dimer Heparin Anti-Xa Level ABG pH POC ABG pCO2 POC ABG pO2 ABG pO2 ABG HCO3 ABG O2 Saturation ABG Base Excess ABG Hemoglobin ABG Oxyhemoglobin ABG Sodium ABG Potassium ABG Chloride ABG Glucose Oxyhemoglobin Carboxyhemoglobin Sodium 135 L Potassium 3.4 L Chloride 94.3 L Carbon Dioxide 32 H BUN Creatinine 0.2 L Glucose 240 H POC Glucose 191 H Lactic Acid Calcium Magnesium Ferritin Total Bilirubin Direct Bilirubin AST ALT Alkaline Phosphatase Lactate Dehydrogenase C-Reactive Protein Total Protein Albumin Triglycerides Lipase Arterial Blood Glucose Arterial Blood Ionized Calcium Urine WBC (Auto) Coronavirus (PCR) SARS-CoV-2 IgG Ab Crossmatch 07/07/20 07/07/20 07/07/20 12:08 16:39 23:41 WBC RBC Hgb Hct MCV MCH MCHC RDW Lymph % (Auto) [place] % (Auto) Lymph # (Auto) [place] # (Auto) Baso # (Auto) Seg Neutrophils % Seg Neuts % (Manual) Lymphocytes % (Manual) Nucleated RBC % Seg Neutrophils # Seg Neutrophils # Man Lymphocytes # (Manual) Monocytes # (Manual) Eosinophils # (Manual) PT INR APTT D-Dimer Heparin Anti-Xa Level ABG pH POC ABG pCO2 POC ABG pO2 ABG pO2 ABG HCO3 ABG O2 Saturation ABG Base Excess ABG Hemoglobin ABG Oxyhemoglobin ABG Sodium ABG Potassium ABG Chloride ABG Glucose Oxyhemoglobin Carboxyhemoglobin Sodium Potassium Chloride Carbon Dioxide BUN Creatinine Glucose POC Glucose 248 H 209 H 231 H Lactic Acid Calcium Magnesium Ferritin Total Bilirubin Direct Bilirubin AST ALT Alkaline Phosphatase Lactate Dehydrogenase C-Reactive Protein Total Protein Albumin Triglycerides Lipase Arterial Blood Glucose Arterial Blood Ionized Calcium Urine WBC (Auto) Coronavirus (PCR) SARS-CoV-2 IgG Ab Crossmatch 07/08/20 07/08/20 07/08/20 04:58 04:58 05:38 WBC 21.0 H RBC 2.86 L Hgb 9.2 L Hct 28.6 L MCV 100 H MCH MCHC RDW 16.7 H Lymph % (Auto) [place] % (Auto) Lymph # (Auto) [place] # (Auto) Baso # (Auto) Seg Neutrophils % Seg Neuts % (Manual) 93.0 H Lymphocytes % (Manual) 3.0 L Nucleated RBC % Seg Neutrophils # Seg Neutrophils # Man 19.5 H Lymphocytes # (Manual) 0.6 L Monocytes # (Manual) Eosinophils # (Manual) PT INR APTT D-Dimer Heparin Anti-Xa Level ABG pH POC ABG pCO2 POC ABG pO2 ABG pO2 ABG HCO3 ABG O2 Saturation ABG Base Excess ABG Hemoglobin ABG Oxyhemoglobin ABG Sodium ABG Potassium ABG Chloride ABG Glucose Oxyhemoglobin Carboxyhemoglobin Sodium Potassium 3.0 L Chloride Carbon Dioxide BUN Creatinine 0.2 L Glucose 201 H POC Glucose 161 H Lactic Acid Calcium 7.9 L D Magnesium Ferritin Total Bilirubin Direct Bilirubin AST ALT Alkaline Phosphatase Lactate Dehydrogenase C-Reactive Protein Total Protein Albumin Triglycerides Lipase Arterial Blood Glucose Arterial Blood Ionized Calcium Urine WBC (Auto) Coronavirus (PCR) SARS-CoV-2 IgG Ab Crossmatch 07/08/20 07/08/20 07/08/20 12:19 16:26 Unknown WBC RBC Hgb Hct MCV MCH MCHC RDW Lymph % (Auto) [place] % (Auto) Lymph # (Auto) [place] # (Auto) Baso # (Auto) Seg Neutrophils % Seg Neuts % (Manual) Lymphocytes % (Manual) Nucleated RBC % Seg Neutrophils # Seg Neutrophils # Man Lymphocytes # (Manual) Monocytes # (Manual) Eosinophils # (Manual) PT INR APTT D-Dimer Heparin Anti-Xa Level ABG pH POC ABG pCO2 POC ABG pO2 ABG pO2 75.3 L ABG HCO3 34.3 H ABG O2 Saturation ABG Base Excess 8.7 H ABG Hemoglobin 10.2 L ABG Oxyhemoglobin ABG Sodium ABG Potassium ABG Chloride ABG Glucose Oxyhemoglobin 93.7 L Carboxyhemoglobin Sodium Potassium Chloride Carbon Dioxide BUN Creatinine Glucose POC Glucose 152 H 173 H Lactic Acid Calcium Magnesium Ferritin Total Bilirubin Direct Bilirubin AST ALT Alkaline Phosphatase Lactate Dehydrogenase C-Reactive Protein Total Protein Albumin Triglycerides Lipase Arterial Blood Glucose Arterial Blood Ionized Calcium Urine WBC (Auto) Coronavirus (PCR) SARS-CoV-2 IgG Ab Crossmatch 07/09/20 07/09/20 07/09/20 00:01 06:00 11:55 WBC RBC Hgb Hct MCV MCH MCHC RDW Lymph % (Auto) [place] % (Auto) Lymph # (Auto) [place] # (Auto) Baso # (Auto) Seg Neutrophils % Seg Neuts % (Manual) Lymphocytes % (Manual) Nucleated RBC % Seg Neutrophils # Seg Neutrophils # Man Lymphocytes # (Manual) Monocytes # (Manual) Eosinophils # (Manual) PT INR APTT D-Dimer Heparin Anti-Xa Level ABG pH POC ABG pCO2 POC ABG pO2 ABG pO2 ABG HCO3 ABG O2 Saturation ABG Base Excess ABG Hemoglobin ABG Oxyhemoglobin ABG Sodium ABG Potassium ABG Chloride ABG Glucose Oxyhemoglobin Carboxyhemoglobin Sodium Potassium Chloride Carbon Dioxide BUN Creatinine Glucose POC Glucose 207 H 141 H 228 H Lactic Acid Calcium Magnesium Ferritin Total Bilirubin Direct Bilirubin AST ALT Alkaline Phosphatase Lactate Dehydrogenase C-Reactive Protein Total Protein Albumin Triglycerides Lipase Arterial Blood Glucose Arterial Blood Ionized Calcium Urine WBC (Auto) Coronavirus (PCR) SARS-CoV-2 IgG Ab Crossmatch 07/09/20 07/09/20 07/09/20 16:47 23:53 Unknown WBC RBC Hgb Hct MCV MCH MCHC RDW Lymph % (Auto) [place] % (Auto) Lymph # (Auto) [place] # (Auto) Baso # (Auto) Seg Neutrophils % Seg Neuts % (Manual) Lymphocytes % (Manual) Nucleated RBC % Seg Neutrophils # Seg Neutrophils # Man Lymphocytes # (Manual) Monocytes # (Manual) Eosinophils # (Manual) PT INR APTT D-Dimer Heparin Anti-Xa Level ABG pH POC ABG pCO2 POC ABG pO2 ABG pO2 ABG HCO3 ABG O2 Saturation ABG Base Excess ABG Hemoglobin ABG Oxyhemoglobin ABG Sodium ABG Potassium ABG Chloride ABG Glucose Oxyhemoglobin Carboxyhemoglobin Sodium 132 L Potassium Chloride 92.7 L Carbon Dioxide 35 H BUN Creatinine 0.2 L Glucose 234 H POC Glucose 136 H 219 H Lactic Acid Calcium Magnesium Ferritin Total Bilirubin Direct Bilirubin AST ALT Alkaline Phosphatase Lactate Dehydrogenase C-Reactive Protein Total Protein Albumin Triglycerides Lipase Arterial Blood Glucose Arterial Blood Ionized Calcium Urine WBC (Auto) Coronavirus (PCR) SARS-CoV-2 IgG Ab Crossmatch 07/10/20 07/10/20 07/10/20 05:20 12:05 18:38 WBC RBC Hgb Hct MCV MCH MCHC RDW Lymph % (Auto) [place] % (Auto) Lymph # (Auto) [place] # (Auto) Baso # (Auto) Seg Neutrophils % Seg Neuts % (Manual) Lymphocytes % (Manual) Nucleated RBC % Seg Neutrophils # Seg Neutrophils # Man Lymphocytes # (Manual) Monocytes # (Manual) Eosinophils # (Manual) PT INR APTT D-Dimer Heparin Anti-Xa Level ABG pH POC ABG pCO2 POC ABG pO2 ABG pO2 ABG HCO3 ABG O2 Saturation ABG Base Excess ABG Hemoglobin ABG Oxyhemoglobin ABG Sodium ABG Potassium ABG Chloride ABG Glucose Oxyhemoglobin Carboxyhemoglobin Sodium Potassium Chloride Carbon Dioxide BUN Creatinine Glucose POC Glucose 221 H 174 H 152 H Lactic Acid Calcium Magnesium Ferritin Total Bilirubin Direct Bilirubin AST ALT Alkaline Phosphatase Lactate Dehydrogenase C-Reactive Protein Total Protein Albumin Triglycerides Lipase Arterial Blood Glucose Arterial Blood Ionized Calcium Urine WBC (Auto) Coronavirus (PCR) SARS-CoV-2 IgG Ab Crossmatch 07/11/20 07/11/20 07/11/20 00:16 05:42 08:13 WBC 11.9 H RBC 3.13 L Hgb 10.2 L Hct 31.2 L MCV 100 H MCH 33 H MCHC RDW 16.4 H Lymph % (Auto) [place] % (Auto) 9.3 H Lymph # (Auto) [place] # (Auto) 1.1 H Baso # (Auto) Seg Neutrophils % 72.7 H Seg Neuts % (Manual) Lymphocytes % (Manual) Nucleated RBC % Seg Neutrophils # 8.7 H Seg Neutrophils # Man Lymphocytes # (Manual) Monocytes # (Manual) Eosinophils # (Manual) PT INR APTT D-Dimer Heparin Anti-Xa Level ABG pH POC ABG pCO2 POC ABG pO2 ABG pO2 ABG HCO3 ABG O2 Saturation ABG Base Excess ABG Hemoglobin ABG Oxyhemoglobin ABG Sodium ABG Potassium ABG Chloride ABG Glucose Oxyhemoglobin Carboxyhemoglobin Sodium Potassium Chloride Carbon Dioxide BUN Creatinine Glucose POC Glucose 170 H 186 H Lactic Acid Calcium Magnesium Ferritin Total Bilirubin Direct Bilirubin AST ALT Alkaline Phosphatase Lactate Dehydrogenase C-Reactive Protein Total Protein Albumin Triglycerides Lipase Arterial Blood Glucose Arterial Blood Ionized Calcium Urine WBC (Auto) Coronavirus (PCR) SARS-CoV-2 IgG Ab Crossmatch 07/11/20 07/11/20 07/11/20 08:13 11:35 18:07 WBC RBC Hgb Hct MCV MCH MCHC RDW Lymph % (Auto) [place] % (Auto) Lymph # (Auto) [place] # (Auto) Baso # (Auto) Seg Neutrophils % Seg Neuts % (Manual) Lymphocytes % (Manual) Nucleated RBC % Seg Neutrophils # Seg Neutrophils # Man Lymphocytes # (Manual) Monocytes # (Manual) Eosinophils # (Manual) PT INR APTT D-Dimer Heparin Anti-Xa Level ABG pH POC ABG pCO2 POC ABG pO2 ABG pO2 ABG HCO3 ABG O2 Saturation ABG Base Excess ABG Hemoglobin ABG Oxyhemoglobin ABG Sodium ABG Potassium ABG Chloride ABG Glucose Oxyhemoglobin Carboxyhemoglobin Sodium 135 L Potassium Chloride 92.8 L Carbon Dioxide 38 H BUN Creatinine 0.2 L Glucose 132 H POC Glucose 129 H 156 H Lactic Acid Calcium Magnesium Ferritin Total Bilirubin Direct Bilirubin AST ALT Alkaline Phosphatase Lactate Dehydrogenase C-Reactive Protein Total Protein Albumin Triglycerides Lipase Arterial Blood Glucose Arterial Blood Ionized Calcium Urine WBC (Auto) Coronavirus (PCR) SARS-CoV-2 IgG Ab Crossmatch 07/11/20 07/11/20 07/12/20 18:36 23:18 05:28 WBC RBC Hgb Hct MCV MCH MCHC RDW Lymph % (Auto) [place] % (Auto) Lymph # (Auto) [place] # (Auto) Baso # (Auto) Seg Neutrophils % Seg Neuts % (Manual) Lymphocytes % (Manual) Nucleated RBC % Seg Neutrophils # Seg Neutrophils # Man Lymphocytes # (Manual) Monocytes # (Manual) Eosinophils # (Manual) PT INR APTT D-Dimer Heparin Anti-Xa Level ABG pH POC ABG pCO2 POC ABG pO2 70.9 L ABG pO2 ABG HCO3 ABG O2 Saturation ABG Base Excess ABG Hemoglobin 10.8 L ABG Oxyhemoglobin 92.5 L ABG Sodium 131.8 L ABG Potassium 3.2 L ABG Chloride 91.0 L ABG Glucose 181 H Oxyhemoglobin Carboxyhemoglobin Sodium Potassium Chloride Carbon Dioxide BUN Creatinine Glucose POC Glucose 189 H 190 H Lactic Acid Calcium Magnesium Ferritin Total Bilirubin Direct Bilirubin AST ALT Alkaline Phosphatase Lactate Dehydrogenase C-Reactive Protein Total Protein Albumin Triglycerides Lipase Arterial Blood Glucose 181 H Arterial Blood Ionized Calcium Urine WBC (Auto) Coronavirus (PCR) SARS-CoV-2 IgG Ab Crossmatch 07/12/20 07/12/20 07/12/20 11:33 17:45 23:59 WBC RBC Hgb Hct MCV MCH MCHC RDW Lymph % (Auto) [place] % (Auto) Lymph # (Auto) [place] # (Auto) Baso # (Auto) Seg Neutrophils % Seg Neuts % (Manual) Lymphocytes % (Manual) Nucleated RBC % Seg Neutrophils # Seg Neutrophils # Man Lymphocytes # (Manual) Monocytes # (Manual) Eosinophils # (Manual) PT INR APTT D-Dimer Heparin Anti-Xa Level ABG pH POC ABG pCO2 POC ABG pO2 ABG pO2 ABG HCO3 ABG O2 Saturation ABG Base Excess ABG Hemoglobin ABG Oxyhemoglobin ABG Sodium ABG Potassium ABG Chloride ABG Glucose Oxyhemoglobin Carboxyhemoglobin Sodium Potassium Chloride Carbon Dioxide BUN Creatinine Glucose POC Glucose 151 H 211 H 169 H Lactic Acid Calcium Magnesium Ferritin Total Bilirubin Direct Bilirubin AST ALT Alkaline Phosphatase Lactate Dehydrogenase C-Reactive Protein Total Protein Albumin Triglycerides Lipase Arterial Blood Glucose Arterial Blood Ionized Calcium Urine WBC (Auto) Coronavirus (PCR) SARS-CoV-2 IgG Ab Crossmatch 07/13/20 07/13/20 07/13/20 05:44 08:31 08:31 WBC 21.3 H RBC 2.92 L Hgb 9.7 L Hct 28.7 L MCV 98 H MCH 33 H MCHC RDW 16.8 H Lymph % (Auto) [place] % (Auto) Lymph # (Auto) [place] # (Auto) Baso # (Auto) Seg Neutrophils % Seg Neuts % (Manual) 96.0 H Lymphocytes % (Manual) 2.0 L Nucleated RBC % Seg Neutrophils # Seg Neutrophils # Man 20.4 H Lymphocytes # (Manual) 0.4 L Monocytes # (Manual) Eosinophils # (Manual) PT INR APTT D-Dimer Heparin Anti-Xa Level ABG pH POC ABG pCO2 POC ABG pO2 ABG pO2 ABG HCO3 ABG O2 Saturation ABG Base Excess ABG Hemoglobin ABG Oxyhemoglobin ABG Sodium ABG Potassium ABG Chloride ABG Glucose Oxyhemoglobin Carboxyhemoglobin Sodium Potassium 2.9 L* D Chloride 94.4 L Carbon Dioxide 37 H BUN Creatinine 0.2 L Glucose 166 H POC Glucose 122 H Lactic Acid Calcium Magnesium Ferritin Total Bilirubin Direct Bilirubin AST ALT Alkaline Phosphatase Lactate Dehydrogenase C-Reactive Protein Total Protein Albumin Triglycerides Lipase Arterial Blood Glucose Arterial Blood Ionized Calcium Urine WBC (Auto) Coronavirus (PCR) SARS-CoV-2 IgG Ab Crossmatch 07/13/20 07/13/20 07/13/20 11:54 13:52 17:40 WBC RBC Hgb Hct MCV MCH MCHC RDW Lymph % (Auto) [place] % (Auto) Lymph # (Auto) [place] # (Auto) Baso # (Auto) Seg Neutrophils % Seg Neuts % (Manual) Lymphocytes % (Manual) Nucleated RBC % Seg Neutrophils # Seg Neutrophils # Man Lymphocytes # (Manual) Monocytes # (Manual) Eosinophils # (Manual) PT INR APTT D-Dimer Heparin Anti-Xa Level ABG pH 7.477 H POC ABG pCO2 54.4 H POC ABG pO2 126.8 H ABG pO2 ABG HCO3 ABG O2 Saturation ABG Base Excess ABG Hemoglobin 11.5 L ABG Oxyhemoglobin ABG Sodium ABG Potassium 3.2 L ABG Chloride 92.0 L ABG Glucose 169 H Oxyhemoglobin Carboxyhemoglobin Sodium Potassium Chloride Carbon Dioxide BUN Creatinine Glucose POC Glucose 132 H 128 H Lactic Acid Calcium Magnesium Ferritin Total Bilirubin Direct Bilirubin AST ALT Alkaline Phosphatase Lactate Dehydrogenase C-Reactive Protein Total Protein Albumin Triglycerides Lipase Arterial Blood Glucose 169 H Arterial Blood Ionized Calcium Urine WBC (Auto) Coronavirus (PCR) SARS-CoV-2 IgG Ab Crossmatch 07/14/20 07/14/20 07/15/20 07:49 17:09 05:27 WBC RBC Hgb Hct MCV MCH MCHC RDW Lymph % (Auto) [place] % (Auto) Lymph # (Auto) [place] # (Auto) Baso # (Auto) Seg Neutrophils % Seg Neuts % (Manual) Lymphocytes % (Manual) Nucleated RBC % Seg Neutrophils # Seg Neutrophils # Man Lymphocytes # (Manual) Monocytes # (Manual) Eosinophils # (Manual) PT INR APTT D-Dimer Heparin Anti-Xa Level ABG pH POC ABG pCO2 POC ABG pO2 ABG pO2 ABG HCO3 ABG O2 Saturation ABG Base Excess ABG Hemoglobin ABG Oxyhemoglobin ABG Sodium ABG Potassium ABG Chloride ABG Glucose Oxyhemoglobin Carboxyhemoglobin Sodium Potassium 2.7 L* Chloride 94.0 L Carbon Dioxide 37 H BUN Creatinine 0.3 L Glucose 110 H POC Glucose 152 H 61 L Lactic Acid Calcium Magnesium Ferritin Total Bilirubin Direct Bilirubin AST ALT Alkaline Phosphatase Lactate Dehydrogenase C-Reactive Protein Total Protein Albumin Triglycerides Lipase Arterial Blood Glucose Arterial Blood Ionized Calcium Urine WBC (Auto) Coronavirus (PCR) SARS-CoV-2 IgG Ab Crossmatch 07/15/20 07/15/20 07/15/20 05:31 11:49 17:18 WBC RBC Hgb Hct MCV MCH MCHC RDW Lymph % (Auto) [place] % (Auto) Lymph # (Auto) [place] # (Auto) Baso # (Auto) Seg Neutrophils % Seg Neuts % (Manual) Lymphocytes % (Manual) Nucleated RBC % Seg Neutrophils # Seg Neutrophils # Man Lymphocytes # (Manual) Monocytes # (Manual) Eosinophils # (Manual) PT INR APTT D-Dimer Heparin Anti-Xa Level ABG pH POC ABG pCO2 POC ABG pO2 ABG pO2 ABG HCO3 ABG O2 Saturation ABG Base Excess ABG Hemoglobin ABG Oxyhemoglobin ABG Sodium ABG Potassium ABG Chloride ABG Glucose Oxyhemoglobin Carboxyhemoglobin Sodium Potassium 3.2 L Chloride 91.2 L Carbon Dioxide 33 H BUN Creatinine 0.3 L Glucose 139 H POC Glucose 148 H 196 H Lactic Acid Calcium Magnesium Ferritin Total Bilirubin Direct Bilirubin AST ALT Alkaline Phosphatase Lactate Dehydrogenase C-Reactive Protein Total Protein Albumin Triglycerides Lipase Arterial Blood Glucose Arterial Blood Ionized Calcium Urine WBC (Auto) Coronavirus (PCR) SARS-CoV-2 IgG Ab Crossmatch 07/15/20 07/16/20 07/16/20 23:08 05:18 05:19 WBC 11.3 H RBC 3.10 L Hgb 10.0 L Hct 30.3 L MCV 98 H MCH MCHC RDW 16.3 H Lymph % (Auto) [place] % (Auto) Lymph # (Auto) [place] # (Auto) Baso # (Auto) Seg Neutrophils % Seg Neuts % (Manual) Lymphocytes % (Manual) Nucleated RBC % Seg Neutrophils # Seg Neutrophils # Man Lymphocytes # (Manual) Monocytes # (Manual) Eosinophils # (Manual) PT INR APTT D-Dimer Heparin Anti-Xa Level ABG pH POC ABG pCO2 POC ABG pO2 ABG pO2 ABG HCO3 ABG O2 Saturation ABG Base Excess ABG Hemoglobin ABG Oxyhemoglobin ABG Sodium ABG Potassium ABG Chloride ABG Glucose Oxyhemoglobin Carboxyhemoglobin Sodium Potassium Chloride Carbon Dioxide BUN Creatinine Glucose POC Glucose 131 H 160 H Lactic Acid Calcium Magnesium Ferritin Total Bilirubin Direct Bilirubin AST ALT Alkaline Phosphatase Lactate Dehydrogenase C-Reactive Protein Total Protein Albumin Triglycerides Lipase Arterial Blood Glucose Arterial Blood Ionized Calcium Urine WBC (Auto) Coronavirus (PCR) SARS-CoV-2 IgG Ab Crossmatch 07/16/20 07/16/20 07/16/20 05:19 11:45 17:17 WBC RBC Hgb Hct MCV MCH MCHC RDW Lymph % (Auto) [place] % (Auto) Lymph # (Auto) [place] # (Auto) Baso # (Auto) Seg Neutrophils % Seg Neuts % (Manual) Lymphocytes % (Manual) Nucleated RBC % Seg Neutrophils # Seg Neutrophils # Man Lymphocytes # (Manual) Monocytes # (Manual) Eosinophils # (Manual) PT INR APTT D-Dimer Heparin Anti-Xa Level ABG pH POC ABG pCO2 POC ABG pO2 ABG pO2 ABG HCO3 ABG O2 Saturation ABG Base Excess ABG Hemoglobin ABG Oxyhemoglobin ABG Sodium ABG Potassium ABG Chloride ABG Glucose Oxyhemoglobin Carboxyhemoglobin Sodium 132 L Potassium 3.4 L Chloride 89.9 L Carbon Dioxide 39 H BUN Creatinine 0.3 L Glucose 174 H POC Glucose 169 H 143 H Lactic Acid Calcium Magnesium Ferritin Total Bilirubin Direct Bilirubin AST ALT Alkaline Phosphatase Lactate Dehydrogenase C-Reactive Protein Total Protein Albumin Triglycerides Lipase Arterial Blood Glucose Arterial Blood Ionized Calcium Urine WBC (Auto) Coronavirus (PCR) SARS-CoV-2 IgG Ab Crossmatch 07/16/20 07/17/20 07/17/20 23:54 05:32 11:26 WBC RBC Hgb Hct MCV MCH MCHC RDW Lymph % (Auto) [place] % (Auto) Lymph # (Auto) [place] # (Auto) Baso # (Auto) Seg Neutrophils % Seg Neuts % (Manual) Lymphocytes % (Manual) Nucleated RBC % Seg Neutrophils # Seg Neutrophils # Man Lymphocytes # (Manual) Monocytes # (Manual) Eosinophils # (Manual) PT INR APTT D-Dimer Heparin Anti-Xa Level ABG pH POC ABG pCO2 POC ABG pO2 ABG pO2 ABG HCO3 ABG O2 Saturation ABG Base Excess ABG Hemoglobin ABG Oxyhemoglobin ABG Sodium ABG Potassium ABG Chloride ABG Glucose Oxyhemoglobin Carboxyhemoglobin Sodium Potassium Chloride Carbon Dioxide BUN Creatinine Glucose POC Glucose 147 H 149 H 211 H Lactic Acid Calcium Magnesium Ferritin Total Bilirubin Direct Bilirubin AST ALT Alkaline Phosphatase Lactate Dehydrogenase C-Reactive Protein Total Protein Albumin Triglycerides Lipase Arterial Blood Glucose Arterial Blood Ionized Calcium Urine WBC (Auto) Coronavirus (PCR) SARS-CoV-2 IgG Ab Crossmatch Allied health notes reviewed: nursing
[2020-07-18] MEDS: INSULIN LISPRO 100 UNIT/ML VIAL 3 mL SUB-Q SCH ×4 (00:12→18:45)
[2020-07-18] MEDS: CEFEPIME/NS 2 GM/100 ML 2 GM/100 ML BAG IV SCH ×3 (06:11→21:44)
[2020-07-18] MEDS: MIDODRINE 5 MG TAB PO SCH ×3 (08:55→15:55)
[2020-07-18 09:25] LABS: Basophils % (Auto) 0.3 % (0.0-1.8); Eosinophils # (Auto) 0.3 K/mm3 (0.0-0.4); Eosinophils % (Auto) 1.5 % (0.0-4.3); Hematocrit 31.8 % (35.5-45.6); Hemoglobin 10.5 gm/dl (11.8-15.2); Lymphocytes # (Auto) 2.6 K/mm3 (1.2-5.4); Mean Corpuscular HGB Conc 33 % (32-34); Mean Corpuscular Volume 97 fl (84-94); Monocytes # (Auto) 1.5 K/mm3 (0.0-0.8); Monocytes % (Auto) 8.6 % (0.0-7.3); Platelet Count 374 K/mm3 (140-440); Red Blood Count 3.29 M/mm3 (3.65-5.03); Red Cell Distribution Width 16.9 % (13.2-15.2)
[2020-07-18 09:29] LABS: Blood Urea Nitrogen 11 mg/dL (9-20); Calcium 9.7 mg/dL (8.4-10.2); Hemolysis Index 4
[2020-07-18 09:31] LABS: BUN/Creatinine Ratio 37
--- NOTE | 2020-07-18 10:12 | Progress Note ---
Subjective - Reason for Consult Consult date: 07/18/20 Reason for consult: MHE Requesting physician: BLAIR WALLIS - Chief Complaint Chief complaint: ICU Nurse: [id number] Pt. received resting in bed. Awake and responsive. O2 40%/15L in use - saturation = 95-97). Lungs clear but diminished. Found with NGT unsecured and migrating outwards - resecured to nose - patent with Vital HP @ 65mls per hour in progress. H2o 100mls Q4H. No gastric residual noted. Right chest tube intact to wall suction draining serosanguenous drainage. Condom cath to BSD camilo color urine. Right AC and right forearm INT's intact and patent without s/s of infiltration at sites. No acute distress noted. Will continue to monitor. Psych Progress Patient seen in room on restraints, intermittent confusion. MENTAL STATUS EXAMINATION General Appearance and Behavior: Age appropriate, good hygiene, wearing appropriate clothes, cooperative polite with questioning. Cooperation: Withdrawn Psychomotor Behavior: Psychomotor agitation Mood: N/A Affect and affective range: Flat Thought Process: Tangential Thought Content: Paranoid and confused Speech: Low volume, Regular rate and rhythm, Intellectual Functioning: Poor Suicidal Ideation: N/A Homicidal Ideation: N/A Impulse Control: Unimpaired Insight and Judgment: Impaired Memory: memory impaired Attention:Distractible, Assessment and Plan - Psychiatric problem (1) Delirium due to another medical condition Current Visit: Yes Status: Acute F05 Treatment Continue current medications Started on olanzapine 2.5 nightly, increased to 5mg. Seroquel changed to 200 mg every morning MEDICATIONS: Risks, benefits and alternatives of medications discussed with the patient, questions answered and consent obtained from patient. PSYCHOTHERAPY: Supportive psychotherapy provided MEDICAL: Per primary team DELIRIUM PRECAUTIONS: Please re-orient patient frequently, keep lights on during the day, and minimize benzodiazepines and opiates as these medications could worsen patient's confusion. DENTAL OFFICE MANAGER: DISPOSITION: Do Not Recommend acute inpatient psychiatric hospitalization at this time but patient will be followed. Case discussed with Dr. Foster who agrees with current disposition FOLLOW-UP: Will follow Thank you for the consult. Please contact with any questions and/or concerns. Mental Status Exam - Vital signs Last Vital Signs Temp 100.4 F H 07/18/20 04:00 Pulse 115 H 07/18/20 07:10 Resp 29 H 07/18/20 07:10 BP 123/81 07/18/20 06:00 Pulse Ox 99 07/18/20 07:10 Assessment and Plan - Patient Problems (1) Delirium due to another medical condition Current Visit: Yes Status: Acute
--- NOTE | 2020-07-18 11:35 | Progress Note ---
Assessment and Plan Assessment and plan: -Pneumothorax status post chest tube Sinus tachycardia Acute hypoxemic respiratory failure; Patient intubated and on vent support --Severe COVID-19 bilateral pneumonia Coronavirus protocol: IV steroid therapy, completed remdesivir, isolation precautions, contact precautions, prone positioning while in bed, pulmonary toilet. ID following SARS CoV-2 IgG positive patient is NOT a candidate for COVID convalescent plasma --Severe sepsis/septic shock, due to COVID 19 PNA cont pressors as needed -- Acute kidney injury (SEN) , likely vasomotor nephropathy Resolved, IV fluids, avoid nephrotoxins --Acute on chronic anemia Guaiac test positive GI evaluation PPIs Continue to monitor -- Elevated liver function tests Suspected secondary to alcoholic liver disease. Supportive care, alcohol cessation, patient counseled. --Colonic distention GI evaluation -recommend stool softeners Serial abdominal x-rays Monitor electrolytes and replete -- DVT prophylaxis On therapeutic Lovenox 50 YO Male with Obesity, ETOH Dependence presents to ED for evaluation for s hortness of breath, generalized weakness, fatigue, malaise, body aches, decreased exercise tolerance over the past 5 days. EMS was notified and upon arrival the patient was found to be in distress with a pulse oximetry of 76% on room air as well as fever to 103 F. In the ER chest x-ray and was found to have bilateral pneumonia. Patient admitted to medical floor and initiated on pneumonia protocol as well as COVID-19 protocol. Patient reports being diagnosed with coronavirus 2 days ago before admission. 06/16/2020. Patient currently on mechanical ventilation with AC mode rate 30, tidal volume 500, FiO2 70% and PEEP of 16. Continue anticoagulation with Lovenox 110 milligrams subcu every 12 hours. Wean sedation of fentanyl/Versed as needed. Currently with IV steroids of Solu-Medrol 40 mg IV every 12 hours. Patient will likely need tracheostomy per pulmonary recommendations. Continue pressors to maintain MAP > 65. 06/17/2020. Patient currently on mechanical ventilation with AC mode rate 30, tidal volume 500, FiO2 65% and PEEP of 16. Continue anticoagulation with Lovenox 110 milligrams subcu every 12 hours. Wean sedation of fentanyl/Versed as needed. Currently with IV steroids of Solu-Medrol 40 mg IV every 12 hours. Patient will likely need tracheostomy per pulmonary recommendations. 06/18/2020. Patient currently on mechanical ventilation with AC mode rate 30, tidal volume 500, FiO2 70% and PEEP of 16. Continue Lovenox for anticoagulation and fentanyl/Versed for sedation. Wean steroids per pulmonary. CIWA protocol initiated for history of EtOH dependence 06/19/2020. Patient currently on mechanical ventilation with AC mode rate 30, tidal volume 500, FiO2 60% and PEEP of 16. Wean FiO2 as tolerated per protocol. Continue Lovenox for anticoagulation and fentanyl/Versed for sedation. Wean steroids per pulmonary. CIWA protocol initiated for history of EtOH dependence 06/20/2020. Patient currently on mechanical ventilation with AC mode rate 30, tidal volume 500, FiO2 60% and PEEP of 16. Wean FiO2 as tolerated, SBT per pro tocol. Continue Lovenox for anticoagulation and fentanyl/Versed for sedation. Wean steroids per pulmonary. Continue pressors to maintain MAP > 65 mmHg. Patient remains on ETT. Consider tracheostomy placement once oxygenation is better per pulmonary. CIWA protocol initiated for history of EtOH dependence. 06/21/2020. Patient with a small apical pneumothorax discovered yesterday. General surgery consulted and consider placing chest tube. Follow-up serial chest x-ray patient currently on mechanical ventilation with AC mode rate 30, tidal volume 500, FiO2 60% and PEEP of 16. Wean FiO2 as tolerated, SBT per protocol. Continue Lovenox for anticoagulation and fentanyl/Versed for sedation. Wean steroids per pulmonary. Continue pressors to maintain MAP > 65 mmHg. Patient remains on ETT. Consider tracheostomy placement once oxygenation is better per pulmonary. CIWA protocol initiated for history of EtOH dependence. 06/22. Status post right chest tube placement yesterday. Remains mechanically ventilated on pressors. Examination today shows slightly distended abdomen. KUB ordered. Awaiting stool guaiac. Plan to get a GI evaluation. 06/23. Has colonic distention on the x-ray. Discussed with GI-advised stool softeners for now and close monitoring. No indication for colonic decompression at this time. Guaiac test is positive. No emergent indication for endoscopy at this point as per GI. Continue to monitor hemoglobin. 06/24. Remains intubated. On pressors. GI following for positive guaiac stool and anemia, and colonic distention. 06/25. Repeat abdominal xray ordered. Remains on mechanical ventilation. 06/26. Abdominal xray - resolved colonic distension. Mechanically ventilated. 06/27. Plan for trach and PEG. 06/28: Awaiting trach and Peg. S\ome Bm REPORTED, will continue to monitor 06/29: Resume care, patient remains on ventilator support, waiting on trach and PEG placement. BM reported by the RN, continue to monitor. 06/30: Unable to wean off from vent, patient will need trach and PEG. Continue supportive care, tolerating tube feed. Monitor CBC and BMP 07/01: Continue mechanical ventilation, tube feeding as tolerated. Sedation as needed per mechanical ventilation protocol. Waiting on trach and PEG placement. 07/02: Continue current management, tube feeding, monitor CBC and BMP. Need trach and PEG-waiting on scheduling. Pulmonary critical care following. 07/03: wean off vent as tolerated. follow clinically. need trach and PEG 07/04: unable to wean. CT head ordered to assess for any changes but too unstable to do the test. need trach and PEG. 07/05: plan for trach/peg - GS following. off pressor - on midodrine. renal function stable. intubated, but alert and can follow minor commend. discussed with daughter by phone. 07/06/2020; Dr. Márquez discussed with patient's daughter about trach but the daughter needs time to think about it. Patient was intubated and alert, FiO2 40%. 07/07/2020; patient was intubated and alert, FiO2 40%. Patient was diaphoretic, tachycardic, and EKG was done which was abnormal for me. I called therapy site coordinator Dr Louis saw the EKG and said it is normal EKG, and the findings are abnormal. 07/08/2020; no significant change, patient is intubated and alert. 1/2: Patient continues on current management. Pulmonary recommending trach and PEG awaiting patient's decision on this. Will check intermittent labs /3: Ordered CT still pending. Patient was agitated at night. Appears to have calmed down. Will repeat labs today. 07/12: Continue supportive care, awaiting CPAP trial. discussed with pulmonary. Obtain labs today. Trach and Peg planned 07/13: Continues to current management, PLAN FOR Trach and PEG on Sunday if patient is not able to liberated from the ventilator, Continue to monitor Fever curve and repeat Sepsis work up if persistent fever 07/14: Now extubated, continue to work up. 07/15: Clinical stable for transfer to [facility], still with fever and now showing bactermia. Continue Abx per ID. monitor fever 07/16: Continue supportive care. MONITOR FEVER CURVE, Adjust antibiotics as tolerated 07/17: Chest tube remains in place. More lethargic, Requested BIPAP to bedside, Chest tube to be discontinued, Awaiting Pysch input. 07/18: Chest tube remains in place repeat chest x-ray shows persistent bilateral opacity with mild improvement. Continue nebulizer treatments. Hypokalemia also noted will replace. Pulmonary and surgical input noted The high probability of a clinically significant, sudden or life threatening det erioration of the [respiratory] system(s) required my full and direct attention, intervention and personal management. The aggregate critical care time was [31] minutes. This time is in addition to time spent performing reported procedures but includes the following: [x] Data Review and interpretation [x] Patient assessment and monitoring of vital signs [x] Documentation [x] Medication orders and management History Interval history: Pt seen and examined, more rested, But still intermittent with tachycardia. Hospitalist Physical - Physical exam Narrative exam: VITAL SIGNS: Reviewed. Exam limited due to global pandemic PPE GENERAL: AWAKE, FOLLOWS COMMAND HEAD: No signs of head trauma. MOUTH: Oropharynx is normal. NECK: No adenopathy, no JVD. CHEST: Chest with diminished breath sounds bilaterally. No wheezes, rales, or rhonchi. CARDIAC: normal S1 and S2, without murmurs, gallops, or rubs. ABDOMEN: Slightly distended, bowel sounds hypoactive NEUROLOGICAL EXAM: DROWSY BUT AWAKE AND FOLLOWING SOME COMMANDS BUT CONFUSION PERSIST - Constitutional Vitals: Temp Pulse Resp BP Pulse Ox 100.4 F H 123 H 32 H 108/64 95 07/18/20 04:00 07/18/20 10:00 07/18/20 10:00 07/18/20 10:00 07/18/20 10:00 General appearance: Present: no acute distress, mild distress, well-nourished HEART Score - HEART Score Troponin: Troponin T 0.015 ng/mL (0.00-0.029) 07/07/20 10:00 Results - Labs CBC & Chem 7: 07/18/20 08:47 07/18/20 08:47 Labs: Laboratory Last Values WBC 17.7 K/mm3 (4.5-11.0) H 07/18/20 08:47 RBC 3.29 M/mm3 (3.65-5.03) L 07/18/20 08:47 Hgb 10.5 gm/dl (11.8-15.2) L 07/18/20 08:47 Hct 31.8 % (35.5-45.6) L 07/18/20 08:47 MCV 97 fl (84-94) H 07/18/20 08:47 MCH 32 pg (28-32) 07/18/20 08:47 MCHC 33 % (32-34) 07/18/20 08:47 RDW 16.9 % (13.2-15.2) H 07/18/20 08:47 Plt Count 374 K/mm3 (140-440) 07/18/20 08:47 Lymph % (Auto) 15.0 % (13.4-35.0) 07/18/20 08:47 [place] % (Auto) 8.6 % (0.0-7.3) H 07/18/20 08:47 Eos % (Auto) 1.5 % (0.0-4.3) 07/18/20 08:47 Baso % (Auto) 0.3 % (0.0-1.8) 07/18/20 08:47 Lymph # (Auto) 2.6 K/mm3 (1.2-5.4) 07/18/20 08:47 [place] # (Auto) 1.5 K/mm3 (0.0-0.8) H 07/18/20 08:47 Eos # (Auto) 0.3 K/mm3 (0.0-0.4) 07/18/20 08:47 Baso # (Auto) 0.0 K/mm3 (0.0-0.1) 07/18/20 08:47 Add Manual Diff Complete 07/13/20 08:31 Total Counted 100 07/13/20 08:31 Seg Neutrophils % 74.6 % (40.0-70.0) H 07/18/20 08:47 Seg Neuts % (Manual) 96.0 % (40.0-70.0) H 07/13/20 08:31 Band Neutrophils % 0 % 07/13/20 08:31 Lymphocytes % (Manual) 2.0 % (13.4-35.0) L 07/13/20 08:31 Reactive Lymphs % (Man) 0 % 07/13/20 08:31 Monocytes % (Manual) 2.0 % (0.0-7.3) 07/13/20 08:31 Eosinophils % (Manual) 0 % (0.0-4.3) 07/13/20 08:31 Basophils % (Manual) 0 % (0.0-1.8) 07/13/20 08:31 Metamyelocytes % 0 % 07/13/20 08:31 Myelocytes % 0 % 07/13/20 08:31 Promyelocytes % 0 % 07/13/20 08:31 Blast Cells % 0 % 07/13/20 08:31 Nucleated RBC % Not Reportable 07/13/20 08:31 Seg Neutrophils # 13.2 K/mm3 (1.8-7.7) H 07/18/20 08:47 Seg Neutrophils # Man 20.4 K/mm3 (1.8-7.7) H 07/13/20 08:31 Band Neutrophils # 0.0 K/mm3 07/13/20 08:31 Lymphocytes # (Manual) 0.4 K/mm3 (1.2-5.4) L 07/13/20 08:31 Abs React Lymphs (Man) 0.0 K/mm3 07/13/20 08:31 Monocytes # (Manual) 0.4 K/mm3 (0.0-0.8) 07/13/20 08:31 Eosinophils # (Manual) 0.0 K/mm3 (0.0-0.4) 07/13/20 08:31 Basophils # (Manual) 0.0 K/mm3 (0.0-0.1) 07/13/20 08:31 Metamyelocytes # 0.0 K/mm3 07/13/20 08:31 Myelocytes # 0.0 K/mm3 07/13/20 08:31 Promyelocytes # 0.0 K/mm3 07/13/20 08:31 Blast Cells # 0.0 K/mm3 07/13/20 08:31 WBC Morphology Not Reportable 07/13/20 08:31 Hypersegmented Neuts Not Reportable 07/13/20 08:31 Hyposegmented Neuts Not Reportable 07/13/20 08:31 Hypogranular Neuts Not Reportable 07/13/20 08:31 Smudge Cells Not Reportable 07/13/20 08:31 Toxic Granulation Not Reportable 07/13/20 08:31 Toxic Vacuolation Not Reportable 07/13/20 08:31 Dohle Bodies Not Reportable 07/13/20 08:31 Pelger-Huet Anomaly Not Reportable 07/13/20 08:31 Jason Rods Not Reportable 07/13/20 08:31 Platelet Estimate Consistent w auto 07/13/20 08:31 Clumped Platelets Not Reportable 07/13/20 08:31 Plt Clumps, EDTA Not Reportable 07/13/20 08:31 Large Platelets Not Reportable 07/13/20 08:31 Giant Platelets Not Reportable 07/13/20 08:31 Platelet Satelliting Not Reportable 07/13/20 08:31 Plt Morphology Comment Not Reportable 07/13/20 08:31 RBC Morphology Not Reportable 07/13/20 08:31 Dimorphic RBCs Not Reportable 07/13/20 08:31 Polychromasia Not Reportable 07/13/20 08:31 Hypochromasia Not Reportable 07/13/20 08:31 Poikilocytosis Not Reportable 07/13/20 08:31 Anisocytosis Not Reportable 07/13/20 08:31 Microcytosis Not Reportable 07/13/20 08:31 Macrocytosis Not Reportable 07/13/20 08:31 Spherocytes Not Reportable 07/13/20 08:31 Pappenheimer Bodies Not Reportable 07/13/20 08:31 Sickle Cells Not Reportable 07/13/20 08:31 Target Cells Not Reportable 07/13/20 08:31 Tear Drop Cells Not Reportable 07/13/20 08:31 Ovalocytes Not Reportable 07/13/20 08:31 Stomatocytes Few 07/13/20 08:31 Helmet Cells Not Reportable 07/13/20 08:31 [place] Bodies Not Reportable 07/13/20 08:31 Samson Rings Not Reportable 07/13/20 08:31 [place] Cells Not Reportable 07/13/20 08:31 Bite Cells Not Reportable 07/13/20 08:31 Crenated Cell Not Reportable 07/13/20 08:31 Elliptocytes Not Reportable 07/13/20 08:31 Acanthocytes (Spur) Not Reportable 07/13/20 08:31 Rouleaux Not Reportable 07/13/20 08:31 Hemoglobin C Crystals Not Reportable 07/13/20 08:31 Schistocytes Not Reportable 07/13/20 08:31 Malaria parasites Not Reportable 07/13/20 08:31 Josue Bodies Not Reportable 07/13/20 08:31 Hem Pathologist Commnt No 07/13/20 08:31 PT 11.8 Sec. (12.2-14.9) L 06/22/20 14:29 INR 0.88 (0.87-1.13) 06/22/20 14:29 APTT 23.5 Sec. (24.2-36.6) L 06/22/20 14:29 D-Dimer 1887.82 ng/mlDDU (0-234) H 05/20/20 08:16 Heparin Anti-Xa Level 0.37 U.I./ml (0.3-0.7) 07/02/20 16:08 ABG pH 7.477 (7.320-7.450) H 07/13/20 13:52 POC ABG pCO2 54.4 mmHg (32.0-48.0) H 07/13/20 13:52 ABG pCO2 53.1 mm Hg 07/08/20 Unknown POC ABG pO2 126.8 mmHg (83-108) H 07/13/20 13:52 ABG pO2 75.3 mm Hg (80.0-90.0) L 07/08/20 Unknown POC ABG HCO3 39.3 07/13/20 13:52 ABG HCO3 34.3 mmol/L (20.0-26.0) H 07/08/20 Unknown ABG O2 Saturation 96.5 % (95.0-99.0) 07/08/20 Unknown ABG O2 Content 13.5 (0.0-44) 07/08/20 Unknown POC ABG Base Excess 13.8 07/13/20 13:52 ABG Base Excess 8.7 mmol/L (-2.0-3.0) H 07/08/20 Unknown ABG Hemoglobin 11.5 (12.0-17.5) L 07/13/20 13:52 ABG Oxyhemoglobin 97.7 (94-98) 07/13/20 13:52 ABG Carboxyhemoglobin 2.4 % (0.0-5.0) 07/08/20 Unknown ABG Methemoglobin 0 (0.0-1.5) 07/13/20 13:52 ABG Sodium 136.2 mmol/L (136.0-145.0) 07/13/20 13:52 ABG Potassium 3.2 mmol/L (3.40-4.50) L 07/13/20 13:52 ABG Chloride 92.0 mmol/L (98-107) L 07/13/20 13:52 ABG Glucose 169 mg/dL (65-95) H 07/13/20 13:52 Oxyhemoglobin 93.7 % (95.0-99.0) L 07/08/20 Unknown Carboxyhemoglobin 1.2 (0.5-1.5) 07/13/20 13:52 FiO2 45 07/13/20 13:52 Sodium 138 mmol/L (137-145) 07/18/20 08:47 Potassium 2.8 mmol/L (3.6-5.0) L* 07/18/20 08:47 Chloride 92.6 mmol/L (98-107) L 07/18/20 08:47 Carbon Dioxide 40 mmol/L (22-30) H 07/18/20 08:47 Anion Gap 8 mmol/L 07/18/20 08:47 BUN 11 mg/dL (9-20) 07/18/20 08:47 Creatinine 0.3 mg/dL (0.8-1.3) L 07/18/20 08:47 Estimated GFR > 60 ml/min 07/18/20 08:47 BUN/Creatinine Ratio 37 % 07/18/20 08:47 Glucose 177 mg/dL (75-100) H 07/18/20 08:47 POC Glucose 108 mg/dL (70-105) H 07/18/20 06:15 Lactic Acid 0.80 mmol/L (0.7-2.0) 07/13/20 15:45 Calcium 9.7 mg/dL (8.4-10.2) 07/18/20 08:47 Phosphorus 3.10 mg/dL (2.5-4.5) 06/15/20 04:00 Magnesium 1.80 mg/dL (1.7-2.3) 07/14/20 07:49 Ferritin 1496.0 ng/mL (30.0-300.0) H 06/14/20 11:50 Total Bilirubin 0.60 mg/dL (0.1-1.2) 06/30/20 07:00 Direct Bilirubin 0.6 mg/dL (0-0.2) H 05/11/20 07:30 Indirect Bilirubin 0.9 mg/dL 05/11/20 07:30 AST 21 units/L (5-40) 06/30/20 07:00 ALT 30 units/L (7-56) 06/30/20 07:00 Alkaline Phosphatase 81 units/L (35-129) 06/30/20 07:00 Lactate Dehydrogenase 705 units/L (91-180) H 05/20/20 08:16 Troponin T 0.015 ng/mL (0.00-0.029) 07/07/20 10:00 C-Reactive Protein 3.10 mg/dL (0.00-1.30) H 05/20/20 08:16 Total Protein 6.3 g/dL (6.3-8.2) 06/30/20 07:00 Albumin 2.8 g/dL (3.9-5) L 06/30/20 07:00 Albumin/Globulin Ratio 0.8 % 06/30/20 07:00 Triglycerides 452 mg/dL (2-149) H 06/30/20 07:00 Lipase 86 units/L (13-60) H 06/29/20 09:36 Procalcitonin 2.15 ng/mL (<0.15) 07/15/20 05:31 Arterial Blood Glucose 169 mg/dL (65-95) H 07/13/20 13:52 Arterial Blood Ionized Calcium 4.8 mg/dL (4.6-5.3) 07/13/20 13:52 Urine Color Fauzia (Yellow) 05/10/20 Unknown Urine Turbidity Clear (Clear) 05/10/20 Unknown Urine pH 5.0 (5.0-7.0) 05/10/20 Unknown Ur Specific [place] 1.019 (1.003-1.030) 05/10/20 Unknown Urine Protein 100 mg/dl mg/dL (Negative) 05/10/20 Unknown Urine Glucose (UA) Neg mg/dL (Negative) 05/10/20 Unknown Urine Ketones Neg mg/dL (Negative) 05/10/20 Unknown Urine Blood Lg (Negative) 05/10/20 Unknown Urine Nitrite Neg (Negative) 05/10/20 Unknown Urine Bilirubin Neg (Negative) 05/10/20 Unknown Urine Urobilinogen 2.0 mg/dL (<2.0) 05/10/20 Unknown Ur Leukocyte Esterase Neg (Negative) 05/10/20 Unknown Urine WBC (Auto) 11.0 /HPF (0.0-6.0) H 05/10/20 Unknown Urine RBC (Auto) 2.0 /HPF (0.0-6.0) 05/10/20 Unknown U Epithel Cells (Auto) 1.0 /HPF (0-13.0) 05/10/20 Unknown Urine Bacteria (Auto) 1+ /HPF (Negative) 05/10/20 Unknown Urine Mucus Few /HPF 05/10/20 Unknown Plasma/Serum Alcohol < 0.01 % (0-0.07) 05/09/20 14:20 Coronavirus (PCR) Negative (Negative) 06/30/20 10:28 Hepatitis A Ab Total Nonreactive (Nonreactive) 07/09/20 Unknown Hep B Core Total Ab Nonreactive (Nonreactive) 07/09/20 Unknown SARS-CoV-2 IgG Ab Reactive (NonReactive) A 05/11/20 07:30 Blood Type B POSITIVE 06/21/20 14:18 Antibody Screen Negative 06/21/20 14:18 Crossmatch See Detail 06/21/20 14:18 Microbiology: Microbiology 07/13/20 Unknown Peripheral/Venous Blood Culture - Preliminary Pseudomonas Species - Diagnostic Impressions Diagnostic Impressions: Echocardiogram 05/20/20 13:02 Transthoracic Echocardiogram Indication: CHF BP: 97/73 Conclusions *The study quality is technically very difficult and limited. *The left ventricular chamber size, wall thickness and systolic function are within normal limits. There are no wall motion abnormalities observed. Ejection fraction is normal. *The estimated ejection fraction is 60-65%. *The pericardium appears normal. Findings Procedure Info: The study quality is technically difficult. Left Ventricle: The left ventricular chamber size, wall thickness and systolic function are within normal limits. There are no wall motion abnormalities observed. Ejection fraction is normal. The estimated ejection fraction is 60-65%. Abnormal left ventricular diastolic filling is observed, consistent with impaired relaxation. Left Atrium: The left atrium is normal in size with no visual thrombus identified. Right Ventricle: The right ventricle is not well visualized. Right Atrium: The right atrium is not well visualized. Aortic Valve: The aortic valve is trileaflet. The leaflets are thin with normal excursion. There is no aortic stenosis or regurgitation present. Mitral Valve: The mitral valve appears normal in structure and function. Tricuspid Valve: The tricuspid valve appears normal in structure and function. Unable to estimate the right ventricular systolic pressure. Pulmonic Valve: The pulmonic valve is not well visualized. There is no evidence of pulmonic regurgitation. There is no pulmonic stenosis. Pericardium: The pericardium appears normal. Pulmonary Artery: The main pulmonary artery is not well visualized. Venous: The inferior vena cava appears normal in size. Measurements Chambers 2D Name Value Normal Range IVSd (2D) 0.83 cm (0.6 - 1.1) LVPWd (2D) 0.83 cm (0.6 - 1.1) LVIDd (2D) 3.88 cm (3.7 - 5.6) LVIDs (2D) 2.46 cm (2 - 3.8) LV FS (2D) 36.52 % - EF Teichholz (2D) 66.97 % - Ao root diameter (2D) 3.47 cm (2 - 3.7) Volumes/Mass Name Value Normal Range LA ESV SP 4CH (A/L) 22.4 ml - LA ESV SP 2CH (A/L) 22.89 ml - LA ESV BP (A/L) 23.06 ml - LA ESV SP 4CH (MOD) 21.09 ml - LA ESV SP 2CH (MOD) 22.44 ml - Diastolic/Systolic Function Name Value Normal Range MV E-wave Vmax 0.48 m/sec - MV deceleration time 156.3 msec - MV A-wave Vmax 0.59 m/sec - MV E:A ratio 0.81 ratio - Aortic Valve Name Value Normal Range AV Vmax 0.97 m/sec - AV VTI 14.49 cm - AV peak gradient 3.73 mmHg - AV mean gradient 1.89 mmHg - LVOT diameter 2.09 cm - LVOT Vmax 0.72 m/sec - LVOT VTI 10.21 cm - LVOT peak gradient 2.05 mmHg - LVOT mean gradient 1.03 mmHg - SV LVOT 35.17 ml - INNA (continuity Vmax) 2.55 cm2 - INNA (continuity VTI) 2.43 cm2 - Tricuspid Valve Name Value Normal Range TV E-wave Vmax 0.37 m/sec - Pulmonic Valve/Qp:Qs Name Value Normal Range PV Vmax 0.72 m/sec - PV peak gradient 2.06 mmHg - RVOT Vmax 0.85 m/sec - RVOT VTI 9.89 cm - RVOT peak gradient 2.9 mmHg - PV acceleration time 72.31 msec - Cantor/IV: Voiding Method Condom Catheter IV Catheter Type [Right Upper Peripheral IV arm] IV Catheter Type [Right CVL Internal Jugular] IV Catheter Type [Right Peripheral IV Forearm] IV Catheter Type [Left Forearm INT / Saline Lock ] IV Catheter Type [Left Wrist] INT / Saline Lock IV Catheter Type [Right Hand] INT / Saline Lock IV Catheter Type [Left Hand] INT / Saline Lock IV Catheter Type [Left Peripheral IV Antecubital] Active Medications - Current Medications Current Medications: Generic Name Dose Route Start Last Admin Trade Name Freq PRN Reason Stop Dose Admin Alprazolam 0.25 mg 05/20/20 17:53 07/17/20 12:00 Alprazolam 0.25 Mg Tab PO 0.25 mg Q8H PRN Administration Anxiety Lipase/Protease/Amylase 1 each 05/22/20 13:01 Lipase 10,500/Protease 25,000/Amylase 43,750 (Units) Dr Newell FEEDTUBE PRN PRN For Clogged Feeding Tube Bisacodyl 10 mg 07/14/20 11:00 Bisacodyl 10 Mg Rect Supp NC BID PRN Laxative Effect Docusate Sodium 100 mg 05/28/20 14:00 07/17/20 21:46 Docusate Sodium 100 Mg/10 Ml Oral Liqd PO 100 mg BID DESIRE Administration Enoxaparin Sodium 80 mg 07/07/20 23:00 07/17/20 21:46 Enoxaparin 80 Mg/0.8 Ml Inj SUB-Q 80 mg Q12HR DESIRE Administration Enoxaparin Sodium 30 mg 07/07/20 23:00 07/17/20 21:46 Enoxaparin 30 Mg/0.3 Ml Inj SUB-Q 30 mg Q12HR DESIRE Administration Folic Acid 1 mg 05/09/20 15:36 07/17/20 09:32 Folic Acid 1 Mg Tab PO 1 mg QDAY DESIRE Administration Hydrophilic Ointment 1 applic 05/21/20 20:33 Lip Therapy Vaseline TP Q2HR PRN Dry Lips Cefepime HCl 2 gm in 100 mls @ 200 mls/hr 07/14/20 21:00 07/18/20 06:11 Cefepime/Ns 2 Gm/100 Ml IV 100 mls/hr Q8H [facility] Administration Protocol Potassium Chloride 10 meq in 100 mls @ 100 mls/hr 07/18/20 12:00 Kcl 10meq/100ml IV 07/18/20 15:59 Q1H [facility] Insulin Human Lispro 0 unit 05/29/20 14:00 07/18/20 06:00 Insulin Lispro 100 Unit/Ml Vial 3 Ml SUB-Q Not Given Q6H [facility] Protocol Lansoprazole 30 mg 06/28/20 10:00 07/17/20 09:32 Lansoprazole 30 Mg Solutab FEEDTUBE 30 mg QDAY [facility] Administration Lorazepam 1 mg 07/04/20 01:10 07/17/20 14:30 Lorazepam 2 Mg/Ml Vial IV 1 mg Q1HR PRN Administration agitation Methylprednisolone Sodium Succinate 20 mg 07/15/20 10:00 07/17/20 09:32 Methylprednisolone Sod Succinate 40 Mg/1 Ml Inj IV 20 mg Q24HR [facility] Administration Metoprolol Tartrate 5 mg 07/02/20 17:17 07/08/20 14:38 Metoprolol Tartrate 5 Mg/5 Ml Inj IV 5 mg Q6HR PRN Administration Tachyarrhythmias Metoprolol Tartrate 12.5 mg 07/17/20 12:00 07/17/20 21:45 Metoprolol Tartrate 25 Mg Tab PO 12.5 mg BID DESIRE Administration Midodrine 10 mg 06/30/20 16:00 07/17/20 16:11 Midodrine 5 Mg Tab PO 10 mg TID@0800,1200,1600 [facility] Administration Multi-Ingred Cream/Lotion/Oil/Oint 1 applic 05/21/20 20:33 Mineral Oil/Petrolatum, White Ophth Oint 3.5 Gm OU Q4HR PRN Dry Eye(s) Olanzapine 5 mg 07/17/20 22:00 07/17/20 21:46 Olanzapine 5 Mg Tab PO 5 mg QHS DESIRE Administration Phenobarbital 32.4 mg 07/04/20 22:00 07/17/20 21:44 Phenobarbital 32.4 Mg Tab PO 32.4 mg BID DESIRE Administration Quetiapine Fumarate 200 mg 07/16/20 10:00 07/17/20 09:32 Quetiapine 200 Mg Tab PO 200 mg QAM DESIRE Administration Senna 17.2 mg 07/14/20 11:00 Sennosides 8.6 Mg Tab PO BID PRN Laxative Effect Simple Syrup 15 ml 05/22/20 13:01 07/15/20 05:35 Simple Syrup 15 Ml FEEDTUBE 15 ml PRN PRN Administration Hypoglycemia Simple Syrup 30 ml 05/22/20 13:01 Simple Syrup 15 Ml FEEDTUBE PRN PRN Hypoglycemia Sodium Bicarbonate 325 mg 05/22/20 13:01 Sodium Bicarbonate 325 Mg Tab FEEDTUBE PRN PRN For Clogged Feeding Tube Sodium Chloride 10 ml 05/09/20 22:00 07/17/20 21:46 Sodium Chloride 0.9% 10 Ml Flush Syringe IV 10 ml BID DESIRE Administration Nutrition/Malnutrition Assess - Dietary Evaluation Nutrition/Malnutrition Findings: Nutrition Notes Start: 05/17/20 14:10 Freq: Status: Active Protocol: Document 07/16/20 13:58 AB (Rec: 07/16/20 14:09 AB [id number]) Co-Sign 07/16/20 13:58 Nutrition Notes Initial or Follow up Reassessment Current Diagnosis Acute Kidney Injury,Decubitus( Pressure Ulcer),Sepsis, Respiratory Failure Other Pertinent Diagnosis Bilat pneu, COVID-19 (+), EtOH dependence Current Diet Vital HP at 65 ml/hr Labs/Tests Na 132 K 3.4 Cr 0.3 BG 174 Pertinent Medications Reviewed Height 6 ft Weight 107.5 kg [place] Body Weight (kg) 80.90 BMI 32.1 Weight Status Obese Subjective/Other Information F/U for TF start/tolerance. Observed pt TF running at goal rate. Pt is no longer on vent . Percent of energy/protein needs met: 91%/100% Burn Absent Trauma Absent GI Symptoms None Current % PO Negligible Minimum of two criteria No physical signs of malnutrition #2 Nutrition Diagnosis Increased nutrient needs ( specify in comment below) Diagnosis Progress(for reassessment Continues documentation) #1 Nutrition Diagnosis Inadequate oral intake Diagnosis Progress(for reassessment Continues documentation) Is patient on ventilator? No Is Patient Ambulatory and/or Out of Bed No REE-([place]-[facility] Jeor-confined to bed) 2365.212 Kcal/Kg value to use for calculation 16 Approximate Energy Requirements Using 1720 kcal/Kg Calculation Used for Recommendations Kcal/kg Additional Notes Protein: 134-161 g (1.25-1.5 g /kg) Fluid: 1 ml/kcal Nutrition Intervention Change Diet Order: Continue current TF Nutrition Support: Vital HP at 65ml/hr with 50ml water flush q4h. For hyponatremia flush with 50 ml q6h. Kcal 1,560 Protein (gm) 136 Fluid (mL) 1,304 Goal #1 TF tolerance Goal #2 TF (at goal rate) to meet at least 75% energy and pro needs Anticipated Discharge Needs: Unable to determine at this time Follow-Up By: 07/23/20 Additional Comments F/U for TF tolerance
[2020-07-18] MEDS: ENOXAPARIN 80 MG/0.8 ML INJ SUB-Q SCH ×2 (11:54→21:44)
[2020-07-18] MEDS: ENOXAPARIN 30 MG/0.3 ML INJ SUB-Q SCH ×2 (11:54→21:44)
[2020-07-18] MEDS: LANSOPRAZOLE 30 MG SOLUTAB FEEDTUBE SCH (11:55)
[2020-07-18] MEDS: FOLIC ACID 1 MG TAB PO SCH (11:55)
[2020-07-18] MEDS: QUEtiapine 200 MG TAB PO SCH (11:55)
[2020-07-18] MEDS: methylPREDNISolone Sod Succinate 40 MG/1 ML INJ IV SCH (11:55)
[2020-07-18] MEDS: PHENobarbital 32.4 MG TAB PO SCH ×2 (11:55→21:44)
[2020-07-18] MEDS: DOCUSATE SODIUM 100 MG/10 ML ORAL LIQD PO SCH ×2 (11:56→21:43)
[2020-07-18] MEDS: METOPROLOL TARTRATE 25 MG TAB PO SCH ×2 (11:56→21:44)
[2020-07-18] MEDS: LORazepam 2 MG/ML VIAL IV PRN (11:57)
[2020-07-18] MEDS: POTASSIUM CHLORIDE 10 MEQ 10 MEQ/100 ML BAG IV SCH ×4 (12:03→15:55)
--- NOTE | 2020-07-18 16:11 | Progress Note ---
Assessment and Plan Acute hypoxemic respiratory failure due to COVID-19 Severe Sepsis Bilateral pneumonia Acute kidney injury (SEN) with acute tubular necrosis (ATN) Alcohol dependence Elevated liver function tests - Psychiatry input appreciated - chest tube removal per surgeon - continue BIPAP scheduled qhs with prn daytime use - continue [employer] evaluation - continue care as below otherwise; - continue to wean supplemental oxygen for target O2 sat's > 92% acutely - continue bid protonix - continue bowel regimen - aspiration precautions - continue bronchodilators with pulmonary hygiene per RT - accuchecks with glycemic control per SSI for target blood glucose of < 180 mg/dL; avoid hypoglycemia - enteral nutritional support at goal rate as tolerated - repeat COVID-19 testing is negative X 2 - continue Zinc & Vit C supplementaion - wean systemic steroids for Asthma / severe COVID infection - continue empiric full dose anticoagulation re: elevated d-dimers / hypercoagulable state - completed remdesivir dosing (total 5 days) - empiric AB's coverage per ID rec's - avoid nephrotoxins, renally dose all medications - continue to avoid benzodiazepine's, reduce the possibility of delirium - continue wound care per RN / WCN - prn analgesia per CPOT score - Maintenance of sleep-wake cycle, avoid delirium - continue to avoid benzodiazepine's, reduce the possibility of delirium - aspiration precautions - G.I. & VTE prophylaxis - PT/OT/ROM exercises - continue mobility protocols for pressure ulcer prophylaxis - Monitor hemodynamics closely - continue other care per attending / other consultants - discharge planning ongoing concurrently - transfer to [facility] ok .... Re-evaluate in am & prn CONDITION: FAIR PROGNOSIS: GUARDED CODE STATUS: FULL CODE I have spent ( >35 ) minutes with the patient w/ >50% of the time spent counseling and/or coordinating care for this patient. Counseling topics and/or how time was spent coordinating patient's care is outlined in the impression and plan above. Subjective Date of service: 07/18/20 Principal diagnosis: Ac hypoxemic resp failure; COVID-19; Severe Sepsis; Shaggy PNA; Alcohol Abuse Interval history: Patient is seen today for: Acute hypoxemic respiratory failure due to COVID-19; Severe Sepsis; Bilateral pneumonia; Alcohol dependence; Elevated liver function tests Seen and examined at bedside; 24hour events reviewed; nursing and respiratory care staff consulted; no adverse overnight events reported to me; resting in bed; remains on supplemental oxygen (50% Venti mask); a little more coherent today; No N/V/F/C Objective Vital Signs - 12hr 07/18/20 07/18/20 07/18/20 04:19 05:00 06:00 Pulse Rate 112 H 106 H 109 H Respiratory 19 20 Rate Blood Pressure 131/84 123/81 O2 Sat by Pulse 100 100 Oximetry 07/18/20 07/18/20 07/18/20 07:10 08:00 09:00 Pulse Rate 115 H 119 H 123 H Respiratory 29 H 38 H 35 H Rate Blood Pressure 113/70 108/65 O2 Sat by Pulse 99 99 92 Oximetry 07/18/20 07/18/20 10:00 11:56 Pulse Rate 123 H 125 H Respiratory 32 H Rate Blood Pressure 108/64 102/60 O2 Sat by Pulse 95 Oximetry Constitutional: no acute distress, other (middle aged obese male with mildly i ncreased respiratory effort at rest ) Eyes: non-icteric ENT: oropharynx moist, other (extubated) Neck: supple, no JVD Effort: mildly labored Ascultation: Bilateral: diminished breath sounds, rhonchi (scant), other (r. chest tube) Percussion: Bilateral: not dull Cardiovascular: regular rate and rhythm, other (No R/M) Gastrointestinal: normoactive bowel sounds, soft, non-tender, non-distended (protuberant), other (distended and firm) Integumentary: normal Extremities: no cyanosis, no edema, pulses normal, no ischemia or petechiae Neurologic: non-focal exam (non focal grossly; weak), pupils equal and round, CN II-XII normal, motor strength normal and (very weak ) Psychiatric: mood appropriate, affect normal CBC and BMP: 07/18/20 08:47 07/18/20 08:47 ABG, PT/INR, D-dimer: ABG ABG pH 7.477 (7.320-7.450) H 07/13/20 13:52 POC ABG pCO2 54.4 mmHg (32.0-48.0) H 07/13/20 13:52 ABG pCO2 53.1 mm Hg 07/08/20 Unknown POC ABG pO2 126.8 mmHg (83-108) H 07/13/20 13:52 ABG pO2 75.3 mm Hg (80.0-90.0) L 07/08/20 Unknown POC ABG HCO3 39.3 07/13/20 13:52 ABG O2 Saturation 96.5 % (95.0-99.0) 07/08/20 Unknown PT/INR, D-dimer PT 11.8 Sec. (12.2-14.9) L 06/22/20 14:29 INR 0.88 (0.87-1.13) 06/22/20 14:29 D-Dimer 1887.82 ng/mlDDU (0-234) H 05/20/20 08:16 Abnormal lab findings: Abnormal Labs 05/09/20 05/09/20 05/09/20 12:59 12:59 12:59 WBC 11.8 H RBC Hgb Hct MCV 96 H MCH 34 H MCHC 35 H RDW Lymph % (Auto) 6.9 L [place] % (Auto) Lymph # (Auto) 0.8 L [place] # (Auto) Baso # (Auto) Seg Neutrophils % 87.5 H Seg Neuts % (Manual) Lymphocytes % (Manual) Nucleated RBC % Seg Neutrophils # 10.3 H Seg Neutrophils # Man Lymphocytes # (Manual) Monocytes # (Manual) Eosinophils # (Manual) PT INR APTT D-Dimer Heparin Anti-Xa Level ABG pH POC ABG pCO2 POC ABG pO2 ABG pO2 ABG HCO3 ABG O2 Saturation ABG Base Excess ABG Hemoglobin ABG Oxyhemoglobin ABG Sodium ABG Potassium ABG Chloride ABG Glucose Oxyhemoglobin Carboxyhemoglobin Sodium 130 L Potassium 3.5 L Chloride 86.4 L Carbon Dioxide BUN 33 H Creatinine 2.3 H Glucose 156 H POC Glucose Lactic Acid Calcium Magnesium Ferritin Total Bilirubin 3.40 H Direct Bilirubin 1.7 H AST 385 H ALT 134 H Alkaline Phosphatase Lactate Dehydrogenase C-Reactive Protein Total Protein Albumin 3.0 L Triglycerides Lipase Arterial Blood Glucose Arterial Blood Ionized Calcium Urine WBC (Auto) Coronavirus (PCR) SARS-CoV-2 IgG Ab Crossmatch 05/09/20 05/09/20 05/09/20 12:59 12:59 12:59 WBC RBC Hgb Hct MCV MCH MCHC RDW Lymph % (Auto) [place] % (Auto) Lymph # (Auto) [place] # (Auto) Baso # (Auto) Seg Neutrophils % Seg Neuts % (Manual) Lymphocytes % (Manual) Nucleated RBC % Seg Neutrophils # Seg Neutrophils # Man Lymphocytes # (Manual) Monocytes # (Manual) Eosinophils # (Manual) PT INR APTT D-Dimer 3242.51 H Heparin Anti-Xa Level ABG pH POC ABG pCO2 POC ABG pO2 ABG pO2 ABG HCO3 ABG O2 Saturation ABG Base Excess ABG Hemoglobin ABG Oxyhemoglobin ABG Sodium ABG Potassium ABG Chloride ABG Glucose Oxyhemoglobin Carboxyhemoglobin Sodium Potassium Chloride Carbon Dioxide BUN Creatinine Glucose 158 H POC Glucose Lactic Acid 3.50 H* Calcium Magnesium Ferritin Total Bilirubin Direct Bilirubin AST ALT Alkaline Phosphatase Lactate Dehydrogenase 2166 H C-Reactive Protein 39.00 H Total Protein Albumin Triglycerides Lipase Arterial Blood Glucose Arterial Blood Ionized Calcium Urine WBC (Auto) Coronavirus (PCR) SARS-CoV-2 IgG Ab Crossmatch 05/09/20 05/09/20 05/09/20 12:59 14:20 14:20 WBC RBC Hgb Hct MCV MCH MCHC RDW Lymph % (Auto) [place] % (Auto) Lymph # (Auto) [place] # (Auto) Baso # (Auto) Seg Neutrophils % Seg Neuts % (Manual) Lymphocytes % (Manual) Nucleated RBC % Seg Neutrophils # Seg Neutrophils # Man Lymphocytes # (Manual) Monocytes # (Manual) Eosinophils # (Manual) PT INR APTT D-Dimer 2861.78 H Heparin Anti-Xa Level ABG pH POC ABG pCO2 POC ABG pO2 ABG pO2 ABG HCO3 ABG O2 Saturation ABG Base Excess ABG Hemoglobin ABG Oxyhemoglobin ABG Sodium ABG Potassium ABG Chloride ABG Glucose Oxyhemoglobin Carboxyhemoglobin Sodium Potassium Chloride Carbon Dioxide BUN Creatinine Glucose POC Glucose Lactic Acid 2.20 H* Calcium Magnesium Ferritin 99382.0 H Total Bilirubin Direct Bilirubin AST ALT Alkaline Phosphatase Lactate Dehydrogenase C-Reactive Protein Total Protein Albumin Triglycerides Lipase Arterial Blood Glucose Arterial Blood Ionized Calcium Urine WBC (Auto) Coronavirus (PCR) SARS-CoV-2 IgG Ab Crossmatch 05/09/20 05/09/20 05/09/20 14:20 14:20 15:56 WBC RBC Hgb Hct MCV MCH MCHC RDW Lymph % (Auto) [place] % (Auto) Lymph # (Auto) [place] # (Auto) Baso # (Auto) Seg Neutrophils % Seg Neuts % (Manual) Lymphocytes % (Manual) Nucleated RBC % Seg Neutrophils # Seg Neutrophils # Man Lymphocytes # (Manual) Monocytes # (Manual) Eosinophils # (Manual) PT INR APTT D-Dimer Heparin Anti-Xa Level ABG pH POC ABG pCO2 POC ABG pO2 57.3 L ABG pO2 ABG HCO3 ABG O2 Saturation ABG Base Excess ABG Hemoglobin ABG Oxyhemoglobin 86.3 L ABG Sodium 129.9 L ABG Potassium ABG Chloride ABG Glucose 146 H Oxyhemoglobin Carboxyhemoglobin Sodium Potassium Chloride Carbon Dioxide BUN Creatinine Glucose 143 H POC Glucose Lactic Acid Calcium Magnesium Ferritin 18301.0 H Total Bilirubin Direct Bilirubin AST ALT Alkaline Phosphatase Lactate Dehydrogenase 1953 H C-Reactive Protein 33.50 H Total Protein Albumin Triglycerides Lipase Arterial Blood Glucose 146 H Arterial Blood Ionized Calcium 3.9 L Urine WBC (Auto) Coronavirus (PCR) SARS-CoV-2 IgG Ab Crossmatch 05/10/20 05/10/20 05/10/20 10:32 10:32 18:50 WBC 15.4 H RBC Hgb Hct MCV 97 H MCH 33 H MCHC RDW 13.1 L Lymph % (Auto) [place] % (Auto) Lymph # (Auto) [place] # (Auto) Baso # (Auto) Seg Neutrophils % Seg Neuts % (Manual) 89.0 H Lymphocytes % (Manual) 8.0 L Nucleated RBC % Seg Neutrophils # Seg Neutrophils # Man 13.7 H Lymphocytes # (Manual) Monocytes # (Manual) Eosinophils # (Manual) PT INR APTT D-Dimer Heparin Anti-Xa Level ABG pH POC ABG pCO2 POC ABG pO2 ABG pO2 ABG HCO3 ABG O2 Saturation ABG Base Excess ABG Hemoglobin ABG Oxyhemoglobin ABG Sodium ABG Potassium ABG Chloride ABG Glucose Oxyhemoglobin Carboxyhemoglobin Sodium 136 L Potassium Chloride 97.4 L Carbon Dioxide BUN 37 H Creatinine 1.7 H Glucose 209 H POC Glucose Lactic Acid Calcium Magnesium Ferritin > 2000.0 H Total Bilirubin Direct Bilirubin AST ALT Alkaline Phosphatase Lactate Dehydrogenase C-Reactive Protein Total Protein Albumin Triglycerides Lipase Arterial Blood Glucose Arterial Blood Ionized Calcium Urine WBC (Auto) Coronavirus (PCR) SARS-CoV-2 IgG Ab Crossmatch 05/10/20 05/10/20 05/10/20 18:50 19:00 Unknown WBC RBC Hgb Hct MCV MCH MCHC RDW Lymph % (Auto) [place] % (Auto) Lymph # (Auto) [place] # (Auto) Baso # (Auto) Seg Neutrophils % Seg Neuts % (Manual) Lymphocytes % (Manual) Nucleated RBC % Seg Neutrophils # Seg Neutrophils # Man Lymphocytes # (Manual) Monocytes # (Manual) Eosinophils # (Manual) PT INR APTT D-Dimer > 15330 H Heparin Anti-Xa Level ABG pH POC ABG pCO2 POC ABG pO2 ABG pO2 ABG HCO3 ABG O2 Saturation ABG Base Excess ABG Hemoglobin ABG Oxyhemoglobin ABG Sodium ABG Potassium ABG Chloride ABG Glucose Oxyhemoglobin Carboxyhemoglobin Sodium Potassium Chloride Carbon Dioxide BUN Creatinine Glucose POC Glucose Lactic Acid Calcium Magnesium Ferritin Total Bilirubin Direct Bilirubin AST ALT Alkaline Phosphatase Lactate Dehydrogenase 1879 H C-Reactive Protein 24.80 H Total Protein Albumin Triglycerides Lipase Arterial Blood Glucose Arterial Blood Ionized Calcium Urine WBC (Auto) 11.0 H Coronavirus (PCR) SARS-CoV-2 IgG Ab Crossmatch 05/10/20 05/11/20 05/11/20 Unknown 07:30 07:30 WBC RBC Hgb Hct MCV MCH MCHC RDW Lymph % (Auto) [place] % (Auto) Lymph # (Auto) [place] # (Auto) Baso # (Auto) Seg Neutrophils % Seg Neuts % (Manual) Lymphocytes % (Manual) Nucleated RBC % Seg Neutrophils # Seg Neutrophils # Man Lymphocytes # (Manual) Monocytes # (Manual) Eosinophils # (Manual) PT INR APTT D-Dimer > 2000 H Heparin Anti-Xa Level ABG pH POC ABG pCO2 POC ABG pO2 ABG pO2 ABG HCO3 ABG O2 Saturation ABG Base Excess ABG Hemoglobin ABG Oxyhemoglobin ABG Sodium ABG Potassium ABG Chloride ABG Glucose Oxyhemoglobin Carboxyhemoglobin Sodium Potassium Chloride 96.3 L Carbon Dioxide BUN 36 H Creatinine Glucose 161 H POC Glucose Lactic Acid Calcium 8.3 L Magnesium Ferritin Total Bilirubin 1.50 H Direct Bilirubin 0.6 H AST 178 H ALT 111 H Alkaline Phosphatase Lactate Dehydrogenase C-Reactive Protein Total Protein Albumin 3.0 L Triglycerides Lipase Arterial Blood Glucose Arterial Blood Ionized Calcium Urine WBC (Auto) Coronavirus (PCR) Positive A SARS-CoV-2 IgG Ab Crossmatch 05/11/20 05/11/20 05/11/20 07:30 07:30 07:30 WBC RBC Hgb Hct MCV MCH MCHC RDW Lymph % (Auto) [place] % (Auto) Lymph # (Auto) [place] # (Auto) Baso # (Auto) Seg Neutrophils % Seg Neuts % (Manual) Lymphocytes % (Manual) Nucleated RBC % Seg Neutrophils # Seg Neutrophils # Man Lymphocytes # (Manual) Monocytes # (Manual) Eosinophils # (Manual) PT INR APTT D-Dimer Heparin Anti-Xa Level ABG pH POC ABG pCO2 POC ABG pO2 ABG pO2 ABG HCO3 ABG O2 Saturation ABG Base Excess ABG Hemoglobin ABG Oxyhemoglobin ABG Sodium ABG Potassium ABG Chloride ABG Glucose Oxyhemoglobin Carboxyhemoglobin Sodium Potassium Chloride Carbon Dioxide BUN Creatinine Glucose POC Glucose Lactic Acid Calcium Magnesium Ferritin 28421.0 H Total Bilirubin Direct Bilirubin AST ALT Alkaline Phosphatase Lactate Dehydrogenase 1523 H C-Reactive Protein 12.90 H Total Protein Albumin Triglycerides Lipase Arterial Blood Glucose Arterial Blood Ionized Calcium Urine WBC (Auto) Coronavirus (PCR) SARS-CoV-2 IgG Ab Reactive A Crossmatch 05/13/20 05/13/20 05/15/20 05:20 05:20 08:15 WBC RBC Hgb Hct MCV MCH MCHC RDW Lymph % (Auto) [place] % (Auto) Lymph # (Auto) [place] # (Auto) Baso # (Auto) Seg Neutrophils % Seg Neuts % (Manual) Lymphocytes % (Manual) Nucleated RBC % Seg Neutrophils # Seg Neutrophils # Man Lymphocytes # (Manual) Monocytes # (Manual) Eosinophils # (Manual) PT INR APTT D-Dimer > 12373 H 5318.28 H Heparin Anti-Xa Level ABG pH POC ABG pCO2 POC ABG pO2 ABG pO2 ABG HCO3 ABG O2 Saturation ABG Base Excess ABG Hemoglobin ABG Oxyhemoglobin ABG Sodium ABG Potassium ABG Chloride ABG Glucose Oxyhemoglobin Carboxyhemoglobin Sodium Potassium Chloride Carbon Dioxide 32 H BUN 30 H Creatinine Glucose 156 H POC Glucose Lactic Acid Calcium Magnesium 2.60 H Ferritin Total Bilirubin 1.40 H Direct Bilirubin AST 121 H ALT 119 H Alkaline Phosphatase Lactate Dehydrogenase 957 H C-Reactive Protein 4.00 H Total Protein Albumin 3.0 L Triglycerides Lipase Arterial Blood Glucose Arterial Blood Ionized Calcium Urine WBC (Auto) Coronavirus (PCR) SARS-CoV-2 IgG Ab Crossmatch 05/15/20 05/15/20 05/15/20 08:15 08:15 08:15 WBC 12.4 H RBC Hgb Hct MCV 98 H MCH 33 H MCHC RDW Lymph % (Auto) 9.7 L [place] % (Auto) Lymph # (Auto) [place] # (Auto) Baso # (Auto) Seg Neutrophils % 86.8 H Seg Neuts % (Manual) Lymphocytes % (Manual) Nucleated RBC % Seg Neutrophils # 10.8 H Seg Neutrophils # Man Lymphocytes # (Manual) Monocytes # (Manual) Eosinophils # (Manual) PT INR APTT D-Dimer Heparin Anti-Xa Level ABG pH POC ABG pCO2 POC ABG pO2 ABG pO2 ABG HCO3 ABG O2 Saturation ABG Base Excess ABG Hemoglobin ABG Oxyhemoglobin ABG Sodium ABG Potassium ABG Chloride ABG Glucose Oxyhemoglobin Carboxyhemoglobin Sodium Potassium Chloride 94.8 L Carbon Dioxide 32 H BUN 22 H Creatinine Glucose 115 H POC Glucose Lactic Acid Calcium 8.3 L Magnesium Ferritin 2494.0 H Total Bilirubin Direct Bilirubin AST 73 H ALT 121 H Alkaline Phosphatase Lactate Dehydrogenase 835 H C-Reactive Protein 3.40 H Total Protein 6.1 L Albumin 3.0 L Triglycerides Lipase Arterial Blood Glucose Arterial Blood Ionized Calcium Urine WBC (Auto) Coronavirus (PCR) SARS-CoV-2 IgG Ab Crossmatch 05/17/20 05/17/20 05/17/20 05:50 05:50 05:50 WBC RBC Hgb Hct MCV MCH MCHC RDW Lymph % (Auto) [place] % (Auto) Lymph # (Auto) [place] # (Auto) Baso # (Auto) Seg Neutrophils % Seg Neuts % (Manual) Lymphocytes % (Manual) Nucleated RBC % Seg Neutrophils # Seg Neutrophils # Man Lymphocytes # (Manual) Monocytes # (Manual) Eosinophils # (Manual) PT INR APTT D-Dimer 2911.42 H Heparin Anti-Xa Level ABG pH POC ABG pCO2 POC ABG pO2 ABG pO2 ABG HCO3 ABG O2 Saturation ABG Base Excess ABG Hemoglobin ABG Oxyhemoglobin ABG Sodium ABG Potassium ABG Chloride ABG Glucose Oxyhemoglobin Carboxyhemoglobin Sodium 136 L Potassium Chloride 96.0 L Carbon Dioxide 34 H BUN 22 H Creatinine Glucose 140 H POC Glucose Lactic Acid Calcium Magnesium Ferritin 2082.0 H Total Bilirubin Direct Bilirubin AST ALT 75 H Alkaline Phosphatase Lactate Dehydrogenase 601 H C-Reactive Protein 2.70 H Total Protein Albumin 2.9 L Triglycerides Lipase Arterial Blood Glucose Arterial Blood Ionized Calcium Urine WBC (Auto) Coronavirus (PCR) SARS-CoV-2 IgG Ab Crossmatch 05/17/20 05/18/20 05/20/20 05:50 12:22 08:16 WBC RBC Hgb Hct MCV 98 H MCH 33 H MCHC RDW Lymph % (Auto) 8.0 L [place] % (Auto) Lymph # (Auto) 0.8 L [place] # (Auto) Baso # (Auto) Seg Neutrophils % 89.3 H Seg Neuts % (Manual) Lymphocytes % (Manual) Nucleated RBC % Seg Neutrophils # 8.8 H Seg Neutrophils # Man Lymphocytes # (Manual) Monocytes # (Manual) Eosinophils # (Manual) PT INR APTT D-Dimer 1887.82 H Heparin Anti-Xa Level ABG pH POC ABG pCO2 POC ABG pO2 ABG pO2 ABG HCO3 ABG O2 Saturation ABG Base Excess ABG Hemoglobin ABG Oxyhemoglobin ABG Sodium ABG Potassium ABG Chloride ABG Glucose Oxyhemoglobin Carboxyhemoglobin Sodium Potassium Chloride Carbon Dioxide BUN Creatinine Glucose POC Glucose 178 H Lactic Acid Calcium Magnesium Ferritin Total Bilirubin Direct Bilirubin AST ALT Alkaline Phosphatase Lactate Dehydrogenase C-Reactive Protein Total Protein Albumin Triglycerides Lipase Arterial Blood Glucose Arterial Blood Ionized Calcium Urine WBC (Auto) Coronavirus (PCR) SARS-CoV-2 IgG Ab Crossmatch 05/20/20 05/20/20 05/21/20 08:16 08:16 21:10 WBC RBC Hgb Hct MCV MCH MCHC RDW Lymph % (Auto) [place] % (Auto) Lymph # (Auto) [place] # (Auto) Baso # (Auto) Seg Neutrophils % Seg Neuts % (Manual) Lymphocytes % (Manual) Nucleated RBC % Seg Neutrophils # Seg Neutrophils # Man Lymphocytes # (Manual) Monocytes # (Manual) Eosinophils # (Manual) PT INR APTT D-Dimer Heparin Anti-Xa Level ABG pH 7.483 H POC ABG pCO2 POC ABG pO2 ABG pO2 50.0 L ABG HCO3 27.0 H ABG O2 Saturation 86.2 L ABG Base Excess 3.7 H ABG Hemoglobin ABG Oxyhemoglobin ABG Sodium ABG Potassium ABG Chloride ABG Glucose Oxyhemoglobin 84.2 L Carboxyhemoglobin Sodium Potassium Chloride Carbon Dioxide BUN Creatinine Glucose POC Glucose Lactic Acid Calcium Magnesium Ferritin 1960.0 H Total Bilirubin Direct Bilirubin AST ALT Alkaline Phosphatase Lactate Dehydrogenase 705 H C-Reactive Protein 3.10 H Total Protein Albumin Triglycerides Lipase Arterial Blood Glucose Arterial Blood Ionized Calcium Urine WBC (Auto) Coronavirus (PCR) SARS-CoV-2 IgG Ab Crossmatch 05/22/20 05/22/20 05/22/20 04:01 07:53 07:53 WBC 19.2 H RBC Hgb Hct MCV 98 H MCH 34 H MCHC RDW Lymph % (Auto) [place] % (Auto) Lymph # (Auto) [place] # (Auto) Baso # (Auto) Seg Neutrophils % Seg Neuts % (Manual) 96.0 H Lymphocytes % (Manual) 1.0 L Nucleated RBC % Seg Neutrophils # Seg Neutrophils # Man 18.4 H Lymphocytes # (Manual) 0.2 L Monocytes # (Manual) Eosinophils # (Manual) PT INR APTT D-Dimer Heparin Anti-Xa Level ABG pH POC ABG pCO2 53.8 H POC ABG pO2 125.5 H ABG pO2 ABG HCO3 ABG O2 Saturation ABG Base Excess ABG Hemoglobin ABG Oxyhemoglobin ABG Sodium 131.8 L ABG Potassium 4.8 H ABG Chloride 94.0 L ABG Glucose 163 H Oxyhemoglobin Carboxyhemoglobin Sodium 131 L Potassium Chloride 93.4 L Carbon Dioxide BUN 40 H Creatinine Glucose 176 H POC Glucose Lactic Acid Calcium Magnesium 2.70 H Ferritin Total Bilirubin 1.80 H Direct Bilirubin AST 45 H ALT 116 H Alkaline Phosphatase 181 H Lactate Dehydrogenase C-Reactive Protein Total Protein Albumin 2.6 L Triglycerides Lipase Arterial Blood Glucose 163 H Arterial Blood Ionized Calcium 4.5 L Urine WBC (Auto) Coronavirus (PCR) SARS-CoV-2 IgG Ab Crossmatch 05/23/20 05/24/20 05/24/20 04:17 03:07 04:08 WBC RBC Hgb Hct MCV MCH MCHC RDW Lymph % (Auto) [place] % (Auto) Lymph # (Auto) [place] # (Auto) Baso # (Auto) Seg Neutrophils % Seg Neuts % (Manual) Lymphocytes % (Manual) Nucleated RBC % Seg Neutrophils # Seg Neutrophils # Man Lymphocytes # (Manual) Monocytes # (Manual) Eosinophils # (Manual) PT INR APTT D-Dimer Heparin Anti-Xa Level ABG pH 7.328 L POC ABG pCO2 POC ABG pO2 ABG pO2 72.8 L 73.4 L ABG HCO3 31.0 H 34.0 H ABG O2 Saturation 93.5 L ABG Base Excess 3.5 H 7.7 H ABG Hemoglobin 13.3 L 12.1 L ABG Oxyhemoglobin ABG Sodium ABG Potassium ABG Chloride ABG Glucose Oxyhemoglobin 91.5 L 94.3 L Carboxyhemoglobin Sodium Potassium Chloride Carbon Dioxide BUN Creatinine Glucose POC Glucose 155 H Lactic Acid Calcium Magnesium Ferritin Total Bilirubin Direct Bilirubin AST ALT Alkaline Phosphatase Lactate Dehydrogenase C-Reactive Protein Total Protein Albumin Triglycerides Lipase Arterial Blood Glucose Arterial Blood Ionized Calcium Urine WBC (Auto) Coronavirus (PCR) SARS-CoV-2 IgG Ab Crossmatch 05/24/20 05/24/20 05/24/20 09:33 12:21 17:52 WBC RBC Hgb Hct MCV MCH MCHC RDW Lymph % (Auto) [place] % (Auto) Lymph # (Auto) [place] # (Auto) Baso # (Auto) Seg Neutrophils % Seg Neuts % (Manual) Lymphocytes % (Manual) Nucleated RBC % Seg Neutrophils # Seg Neutrophils # Man Lymphocytes # (Manual) Monocytes # (Manual) Eosinophils # (Manual) PT INR APTT D-Dimer Heparin Anti-Xa Level ABG pH POC ABG pCO2 POC ABG pO2 ABG pO2 ABG HCO3 ABG O2 Saturation ABG Base Excess ABG Hemoglobin ABG Oxyhemoglobin ABG Sodium ABG Potassium ABG Chloride ABG Glucose Oxyhemoglobin Carboxyhemoglobin Sodium Potassium Chloride Carbon Dioxide 34 H D BUN 28 H Creatinine 0.7 L Glucose 168 H POC Glucose 173 H 164 H Lactic Acid Calcium Magnesium Ferritin Total Bilirubin Direct Bilirubin AST ALT Alkaline Phosphatase Lactate Dehydrogenase C-Reactive Protein Total Protein Albumin Triglycerides Lipase Arterial Blood Glucose Arterial Blood Ionized Calcium Urine WBC (Auto) Coronavirus (PCR) SARS-CoV-2 IgG Ab Crossmatch 05/24/20 05/25/20 05/25/20 23:47 04:29 05:46 WBC RBC Hgb Hct MCV MCH MCHC RDW Lymph % (Auto) [place] % (Auto) Lymph # (Auto) [place] # (Auto) Baso # (Auto) Seg Neutrophils % Seg Neuts % (Manual) Lymphocytes % (Manual) Nucleated RBC % Seg Neutrophils # Seg Neutrophils # Man Lymphocytes # (Manual) Monocytes # (Manual) Eosinophils # (Manual) PT INR APTT D-Dimer Heparin Anti-Xa Level ABG pH POC ABG pCO2 68.6 H POC ABG pO2 ABG pO2 ABG HCO3 ABG O2 Saturation ABG Base Excess ABG Hemoglobin ABG Oxyhemoglobin ABG Sodium ABG Potassium 4.7 H ABG Chloride ABG Glucose 226 H Oxyhemoglobin Carboxyhemoglobin Sodium Potassium Chloride Carbon Dioxide BUN Creatinine Glucose POC Glucose 171 H 201 H Lactic Acid Calcium Magnesium Ferritin Total Bilirubin Direct Bilirubin AST ALT Alkaline Phosphatase Lactate Dehydrogenase C-Reactive Protein Total Protein Albumin Triglycerides Lipase Arterial Blood Glucose 226 H Arterial Blood Ionized Calcium Urine WBC (Auto) Coronavirus (PCR) SARS-CoV-2 IgG Ab Crossmatch 05/25/20 05/25/20 05/25/20 08:37 08:37 12:38 WBC 12.0 H RBC 3.64 L Hgb Hct MCV 99 H MCH 33 H MCHC RDW Lymph % (Auto) [place] % (Auto) Lymph # (Auto) [place] # (Auto) Baso # (Auto) Seg Neutrophils % Seg Neuts % (Manual) Lymphocytes % (Manual) Nucleated RBC % Seg Neutrophils # Seg Neutrophils # Man Lymphocytes # (Manual) Monocytes # (Manual) Eosinophils # (Manual) PT INR APTT D-Dimer Heparin Anti-Xa Level ABG pH POC ABG pCO2 POC ABG pO2 ABG pO2 ABG HCO3 ABG O2 Saturation ABG Base Excess ABG Hemoglobin ABG Oxyhemoglobin ABG Sodium ABG Potassium ABG Chloride ABG Glucose Oxyhemoglobin Carboxyhemoglobin Sodium Potassium Chloride 97.3 L Carbon Dioxide 35 H BUN 25 H Creatinine 0.7 L Glucose 191 H POC Glucose 182 H Lactic Acid Calcium Magnesium Ferritin Total Bilirubin Direct Bilirubin AST ALT Alkaline Phosphatase Lactate Dehydrogenase C-Reactive Protein Total Protein Albumin Triglycerides Lipase Arterial Blood Glucose Arterial Blood Ionized Calcium Urine WBC (Auto) Coronavirus (PCR) SARS-CoV-2 IgG Ab Crossmatch 05/25/20 05/26/20 05/26/20 18:16 00:06 04:50 WBC RBC Hgb Hct MCV MCH MCHC RDW Lymph % (Auto) [place] % (Auto) Lymph # (Auto) [place] # (Auto) Baso # (Auto) Seg Neutrophils % Seg Neuts % (Manual) Lymphocytes % (Manual) Nucleated RBC % Seg Neutrophils # Seg Neutrophils # Man Lymphocytes # (Manual) Monocytes # (Manual) Eosinophils # (Manual) PT INR APTT D-Dimer Heparin Anti-Xa Level ABG pH POC ABG pCO2 POC ABG pO2 ABG pO2 221.5 H ABG HCO3 40.4 H ABG O2 Saturation 99.3 H ABG Base Excess 12.8 H ABG Hemoglobin 10.4 L ABG Oxyhemoglobin ABG Sodium ABG Potassium ABG Chloride ABG Glucose Oxyhemoglobin Carboxyhemoglobin Sodium Potassium Chloride Carbon Dioxide BUN Creatinine Glucose POC Glucose 176 H 152 H Lactic Acid Calcium Magnesium Ferritin Total Bilirubin Direct Bilirubin AST ALT Alkaline Phosphatase Lactate Dehydrogenase C-Reactive Protein Total Protein Albumin Triglycerides Lipase Arterial Blood Glucose Arterial Blood Ionized Calcium Urine WBC (Auto) Coronavirus (PCR) SARS-CoV-2 IgG Ab Crossmatch 05/26/20 05/26/20 05/26/20 06:11 07:51 07:51 WBC 13.4 H RBC 3.64 L Hgb Hct MCV 98 H MCH 33 H MCHC RDW Lymph % (Auto) [place] % (Auto) Lymph # (Auto) [place] # (Auto) Baso # (Auto) Seg Neutrophils % Seg Neuts % (Manual) Lymphocytes % (Manual) Nucleated RBC % Seg Neutrophils # Seg Neutrophils # Man Lymphocytes # (Manual) Monocytes # (Manual) Eosinophils # (Manual) PT INR APTT D-Dimer Heparin Anti-Xa Level ABG pH POC ABG pCO2 POC ABG pO2 ABG pO2 ABG HCO3 ABG O2 Saturation ABG Base Excess ABG Hemoglobin ABG Oxyhemoglobin ABG Sodium ABG Potassium ABG Chloride ABG Glucose Oxyhemoglobin Carboxyhemoglobin Sodium Potassium Chloride 96.6 L Carbon Dioxide 39 H BUN 29 H Creatinine 0.7 L Glucose 174 H POC Glucose 165 H Lactic Acid Calcium Magnesium Ferritin Total Bilirubin Direct Bilirubin AST ALT Alkaline Phosphatase Lactate Dehydrogenase C-Reactive Protein Total Protein Albumin Triglycerides Lipase Arterial Blood Glucose Arterial Blood Ionized Calcium Urine WBC (Auto) Coronavirus (PCR) SARS-CoV-2 IgG Ab Crossmatch 05/26/20 05/27/20 05/27/20 23:23 03:43 05:29 WBC RBC Hgb Hct MCV MCH MCHC RDW Lymph % (Auto) [place] % (Auto) Lymph # (Auto) [place] # (Auto) Baso # (Auto) Seg Neutrophils % Seg Neuts % (Manual) Lymphocytes % (Manual) Nucleated RBC % Seg Neutrophils # Seg Neutrophils # Man Lymphocytes # (Manual) Monocytes # (Manual) Eosinophils # (Manual) PT INR APTT D-Dimer Heparin Anti-Xa Level ABG pH 7.480 H POC ABG pCO2 52.4 H POC ABG pO2 61.4 L ABG pO2 ABG HCO3 ABG O2 Saturation ABG Base Excess ABG Hemoglobin ABG Oxyhemoglobin ABG Sodium 134.9 L ABG Potassium ABG Chloride 95.0 L ABG Glucose 221 H Oxyhemoglobin Carboxyhemoglobin Sodium Potassium Chloride Carbon Dioxide BUN Creatinine Glucose POC Glucose 169 H 227 H Lactic Acid Calcium Magnesium Ferritin Total Bilirubin Direct Bilirubin AST ALT Alkaline Phosphatase Lactate Dehydrogenase C-Reactive Protein Total Protein Albumin Triglycerides Lipase Arterial Blood Glucose 221 H Arterial Blood Ionized Calcium 4.5 L Urine WBC (Auto) Coronavirus (PCR) SARS-CoV-2 IgG Ab Crossmatch 05/27/20 05/27/20 05/27/20 07:19 12:18 13:50 WBC RBC Hgb Hct MCV MCH MCHC RDW Lymph % (Auto) [place] % (Auto) Lymph # (Auto) [place] # (Auto) Baso # (Auto) Seg Neutrophils % Seg Neuts % (Manual) Lymphocytes % (Manual) Nucleated RBC % Seg Neutrophils # Seg Neutrophils # Man Lymphocytes # (Manual) Monocytes # (Manual) Eosinophils # (Manual) PT INR APTT D-Dimer Heparin Anti-Xa Level ABG pH POC ABG pCO2 POC ABG pO2 ABG pO2 ABG HCO3 ABG O2 Saturation ABG Base Excess ABG Hemoglobin ABG Oxyhemoglobin ABG Sodium ABG Potassium ABG Chloride ABG Glucose Oxyhemoglobin Carboxyhemoglobin Sodium Potassium Chloride Carbon Dioxide BUN Creatinine Glucose POC Glucose 114 H 148 H Lactic Acid Calcium Magnesium Ferritin Total Bilirubin Direct Bilirubin AST ALT Alkaline Phosphatase Lactate Dehydrogenase C-Reactive Protein Total Protein Albumin Triglycerides 247 H Lipase Arterial Blood Glucose Arterial Blood Ionized Calcium Urine WBC (Auto) Coronavirus (PCR) SARS-CoV-2 IgG Ab Crossmatch 05/28/20 05/28/20 05/28/20 00:13 04:16 05:22 WBC RBC Hgb Hct MCV MCH MCHC RDW Lymph % (Auto) [place] % (Auto) Lymph # (Auto) [place] # (Auto) Baso # (Auto) Seg Neutrophils % Seg Neuts % (Manual) Lymphocytes % (Manual) Nucleated RBC % Seg Neutrophils # Seg Neutrophils # Man Lymphocytes # (Manual) Monocytes # (Manual) Eosinophils # (Manual) PT INR APTT D-Dimer Heparin Anti-Xa Level ABG pH POC ABG pCO2 64.4 H POC ABG pO2 60.5 L ABG pO2 ABG HCO3 ABG O2 Saturation ABG Base Excess ABG Hemoglobin ABG Oxyhemoglobin ABG Sodium ABG Potassium ABG Chloride 95.0 L ABG Glucose 209 H Oxyhemoglobin Carboxyhemoglobin Sodium Potassium Chloride Carbon Dioxide BUN Creatinine Glucose POC Glucose 155 H 186 H Lactic Acid Calcium Magnesium Ferritin Total Bilirubin Direct Bilirubin AST ALT Alkaline Phosphatase Lactate Dehydrogenase C-Reactive Protein Total Protein Albumin Triglycerides Lipase Arterial Blood Glucose 209 H Arterial Blood Ionized Calcium Urine WBC (Auto) Coronavirus (PCR) SARS-CoV-2 IgG Ab Crossmatch 05/28/20 05/28/20 05/29/20 12:45 17:39 00:37 WBC RBC Hgb Hct MCV MCH MCHC RDW Lymph % (Auto) [place] % (Auto) Lymph # (Auto) [place] # (Auto) Baso # (Auto) Seg Neutrophils % Seg Neuts % (Manual) Lymphocytes % (Manual) Nucleated RBC % Seg Neutrophils # Seg Neutrophils # Man Lymphocytes # (Manual) Monocytes # (Manual) Eosinophils # (Manual) PT INR APTT D-Dimer Heparin Anti-Xa Level ABG pH POC ABG pCO2 POC ABG pO2 ABG pO2 ABG HCO3 ABG O2 Saturation ABG Base Excess ABG Hemoglobin ABG Oxyhemoglobin ABG Sodium ABG Potassium ABG Chloride ABG Glucose Oxyhemoglobin Carboxyhemoglobin Sodium Potassium Chloride Carbon Dioxide BUN Creatinine Glucose POC Glucose 143 H 164 H 221 H Lactic Acid Calcium Magnesium Ferritin Total Bilirubin Direct Bilirubin AST ALT Alkaline Phosphatase Lactate Dehydrogenase C-Reactive Protein Total Protein Albumin Triglycerides Lipase Arterial Blood Glucose Arterial Blood Ionized Calcium Urine WBC (Auto) Coronavirus (PCR) SARS-CoV-2 IgG Ab Crossmatch 05/29/20 05/29/20 05/29/20 04:15 05:33 12:34 WBC RBC Hgb Hct MCV MCH MCHC RDW Lymph % (Auto) [place] % (Auto) Lymph # (Auto) [place] # (Auto) Baso # (Auto) Seg Neutrophils % Seg Neuts % (Manual) Lymphocytes % (Manual) Nucleated RBC % Seg Neutrophils # Seg Neutrophils # Man Lymphocytes # (Manual) Monocytes # (Manual) Eosinophils # (Manual) PT INR APTT D-Dimer Heparin Anti-Xa Level ABG pH 7.463 H POC ABG pCO2 56.3 H POC ABG pO2 81.2 L ABG pO2 ABG HCO3 ABG O2 Saturation ABG Base Excess ABG Hemoglobin ABG Oxyhemoglobin ABG Sodium ABG Potassium ABG Chloride 96.0 L ABG Glucose 194 H Oxyhemoglobin Carboxyhemoglobin Sodium Potassium Chloride Carbon Dioxide BUN Creatinine Glucose POC Glucose 133 H 221 H Lactic Acid Calcium Magnesium Ferritin Total Bilirubin Direct Bilirubin AST ALT Alkaline Phosphatase Lactate Dehydrogenase C-Reactive Protein Total Protein Albumin Triglycerides Lipase Arterial Blood Glucose 194 H Arterial Blood Ionized Calcium 4.5 L Urine WBC (Auto) Coronavirus (PCR) SARS-CoV-2 IgG Ab Crossmatch 05/29/20 05/30/20 05/30/20 18:07 00:12 05:38 WBC RBC Hgb Hct MCV MCH MCHC RDW Lymph % (Auto) [place] % (Auto) Lymph # (Auto) [place] # (Auto) Baso # (Auto) Seg Neutrophils % Seg Neuts % (Manual) Lymphocytes % (Manual) Nucleated RBC % Seg Neutrophils # Seg Neutrophils # Man Lymphocytes # (Manual) Monocytes # (Manual) Eosinophils # (Manual) PT INR APTT D-Dimer Heparin Anti-Xa Level ABG pH POC ABG pCO2 POC ABG pO2 ABG pO2 ABG HCO3 ABG O2 Saturation ABG Base Excess ABG Hemoglobin ABG Oxyhemoglobin ABG Sodium ABG Potassium ABG Chloride ABG Glucose Oxyhemoglobin Carboxyhemoglobin Sodium Potassium Chloride Carbon Dioxide BUN Creatinine Glucose POC Glucose 162 H 190 H 208 H Lactic Acid Calcium Magnesium Ferritin Total Bilirubin Direct Bilirubin AST ALT Alkaline Phosphatase Lactate Dehydrogenase C-Reactive Protein Total Protein Albumin Triglycerides Lipase Arterial Blood Glucose Arterial Blood Ionized Calcium Urine WBC (Auto) Coronavirus (PCR) SARS-CoV-2 IgG Ab Crossmatch 05/30/20 05/30/20 05/30/20 09:30 11:35 11:54 WBC 12.4 H RBC 3.48 L Hgb 11.3 L Hct 34.6 L MCV 99 H MCH 33 H MCHC RDW Lymph % (Auto) [place] % (Auto) Lymph # (Auto) [place] # (Auto) Baso # (Auto) Seg Neutrophils % Seg Neuts % (Manual) Lymphocytes % (Manual) Nucleated RBC % Seg Neutrophils # Seg Neutrophils # Man Lymphocytes # (Manual) Monocytes # (Manual) Eosinophils # (Manual) PT INR APTT D-Dimer Heparin Anti-Xa Level ABG pH 7.455 H POC ABG pCO2 57.5 H POC ABG pO2 81.5 L ABG pO2 ABG HCO3 ABG O2 Saturation ABG Base Excess ABG Hemoglobin ABG Oxyhemoglobin ABG Sodium ABG Potassium ABG Chloride 96.0 L ABG Glucose 204 H Oxyhemoglobin Carboxyhemoglobin Sodium Potassium Chloride Carbon Dioxide BUN Creatinine Glucose POC Glucose 183 H Lactic Acid Calcium Magnesium Ferritin Total Bilirubin Direct Bilirubin AST ALT Alkaline Phosphatase Lactate Dehydrogenase C-Reactive Protein Total Protein Albumin Triglycerides Lipase Arterial Blood Glucose 204 H Arterial Blood Ionized Calcium Urine WBC (Auto) Coronavirus (PCR) SARS-CoV-2 IgG Ab Crossmatch 05/30/20 05/31/20 05/31/20 18:01 00:10 03:22 WBC RBC Hgb Hct MCV MCH MCHC RDW Lymph % (Auto) [place] % (Auto) Lymph # (Auto) [place] # (Auto) Baso # (Auto) Seg Neutrophils % Seg Neuts % (Manual) Lymphocytes % (Manual) Nucleated RBC % Seg Neutrophils # Seg Neutrophils # Man Lymphocytes # (Manual) Monocytes # (Manual) Eosinophils # (Manual) PT INR APTT D-Dimer Heparin Anti-Xa Level ABG pH POC ABG pCO2 60.4 H POC ABG pO2 71.5 L ABG pO2 ABG HCO3 ABG O2 Saturation ABG Base Excess ABG Hemoglobin ABG Oxyhemoglobin ABG Sodium ABG Potassium ABG Chloride 96.0 L ABG Glucose 169 H Oxyhemoglobin Carboxyhemoglobin Sodium Potassium Chloride Carbon Dioxide BUN Creatinine Glucose POC Glucose 184 H 135 H Lactic Acid Calcium Magnesium Ferritin Total Bilirubin Direct Bilirubin AST ALT Alkaline Phosphatase Lactate Dehydrogenase C-Reactive Protein Total Protein Albumin Triglycerides Lipase Arterial Blood Glucose 169 H Arterial Blood Ionized Calcium 4.5 L Urine WBC (Auto) Coronavirus (PCR) SARS-CoV-2 IgG Ab Crossmatch 05/31/20 05/31/20 05/31/20 05:24 11:18 14:41 WBC RBC Hgb Hct MCV MCH MCHC RDW Lymph % (Auto) [place] % (Auto) Lymph # (Auto) [place] # (Auto) Baso # (Auto) Seg Neutrophils % Seg Neuts % (Manual) Lymphocytes % (Manual) Nucleated RBC % Seg Neutrophils # Seg Neutrophils # Man Lymphocytes # (Manual) Monocytes # (Manual) Eosinophils # (Manual) PT INR APTT D-Dimer Heparin Anti-Xa Level ABG pH POC ABG pCO2 POC ABG pO2 ABG pO2 ABG HCO3 ABG O2 Saturation ABG Base Excess ABG Hemoglobin ABG Oxyhemoglobin ABG Sodium ABG Potassium ABG Chloride ABG Glucose Oxyhemoglobin Carboxyhemoglobin Sodium Potassium Chloride 96.8 L Carbon Dioxide 37 H BUN 31 H Creatinine 0.6 L Glucose 213 H POC Glucose 164 H 208 H Lactic Acid Calcium Magnesium Ferritin Total Bilirubin Direct Bilirubin AST ALT Alkaline Phosphatase Lactate Dehydrogenase C-Reactive Protein Total Protein Albumin Triglycerides Lipase Arterial Blood Glucose Arterial Blood Ionized Calcium Urine WBC (Auto) Coronavirus (PCR) SARS-CoV-2 IgG Ab Crossmatch 05/31/20 05/31/20 06/01/20 17:37 23:47 03:48 WBC RBC Hgb Hct MCV MCH MCHC RDW Lymph % (Auto) [place] % (Auto) Lymph # (Auto) [place] # (Auto) Baso # (Auto) Seg Neutrophils % Seg Neuts % (Manual) Lymphocytes % (Manual) Nucleated RBC % Seg Neutrophils # Seg Neutrophils # Man Lymphocytes # (Manual) Monocytes # (Manual) Eosinophils # (Manual) PT INR APTT D-Dimer Heparin Anti-Xa Level ABG pH POC ABG pCO2 59.7 H POC ABG pO2 73.9 L ABG pO2 ABG HCO3 ABG O2 Saturation ABG Base Excess ABG Hemoglobin ABG Oxyhemoglobin ABG Sodium ABG Potassium ABG Chloride 95.0 L ABG Glucose 256 H Oxyhemoglobin Carboxyhemoglobin Sodium Potassium Chloride Carbon Dioxide BUN Creatinine Glucose POC Glucose 168 H 178 H Lactic Acid Calcium Magnesium Ferritin Total Bilirubin Direct Bilirubin AST ALT Alkaline Phosphatase Lactate Dehydrogenase C-Reactive Protein Total Protein Albumin Triglycerides Lipase Arterial Blood Glucose 256 H Arterial Blood Ionized Calcium Urine WBC (Auto) Coronavirus (PCR) SARS-CoV-2 IgG Ab Crossmatch 06/01/20 06/01/20 06/01/20 05:01 07:47 07:47 WBC 14.4 H RBC 3.46 L Hgb 11.1 L Hct 34.3 L MCV 99 H MCH MCHC RDW Lymph % (Auto) [place] % (Auto) Lymph # (Auto) [place] # (Auto) Baso # (Auto) Seg Neutrophils % Seg Neuts % (Manual) 86.0 H Lymphocytes % (Manual) 9.0 L Nucleated RBC % Seg Neutrophils # Seg Neutrophils # Man 12.4 H Lymphocytes # (Manual) Monocytes # (Manual) Eosinophils # (Manual) PT INR APTT D-Dimer Heparin Anti-Xa Level ABG pH POC ABG pCO2 POC ABG pO2 ABG pO2 ABG HCO3 ABG O2 Saturation ABG Base Excess ABG Hemoglobin ABG Oxyhemoglobin ABG Sodium ABG Potassium ABG Chloride ABG Glucose Oxyhemoglobin Carboxyhemoglobin Sodium Potassium Chloride Carbon Dioxide BUN Creatinine Glucose POC Glucose 197 H Lactic Acid Calcium Magnesium Ferritin Total Bilirubin Direct Bilirubin AST ALT Alkaline Phosphatase Lactate Dehydrogenase C-Reactive Protein Total Protein Albumin Triglycerides 244 H Lipase Arterial Blood Glucose Arterial Blood Ionized Calcium Urine WBC (Auto) Coronavirus (PCR) SARS-CoV-2 IgG Ab Crossmatch 06/01/20 06/01/20 06/01/20 07:47 11:46 18:15 WBC RBC Hgb Hct MCV MCH MCHC RDW Lymph % (Auto) [place] % (Auto) Lymph # (Auto) [place] # (Auto) Baso # (Auto) Seg Neutrophils % Seg Neuts % (Manual) Lymphocytes % (Manual) Nucleated RBC % Seg Neutrophils # Seg Neutrophils # Man Lymphocytes # (Manual) Monocytes # (Manual) Eosinophils # (Manual) PT INR APTT D-Dimer Heparin Anti-Xa Level ABG pH POC ABG pCO2 POC ABG pO2 ABG pO2 ABG HCO3 ABG O2 Saturation ABG Base Excess ABG Hemoglobin ABG Oxyhemoglobin ABG Sodium ABG Potassium ABG Chloride ABG Glucose Oxyhemoglobin Carboxyhemoglobin Sodium Potassium Chloride 95.4 L Carbon Dioxide 35 H BUN 30 H Creatinine 0.5 L Glucose 214 H POC Glucose 181 H 221 H Lactic Acid Calcium Magnesium Ferritin Total Bilirubin Direct Bilirubin AST 54 H ALT 235 H Alkaline Phosphatase Lactate Dehydrogenase C-Reactive Protein Total Protein Albumin 2.9 L Triglycerides Lipase Arterial Blood Glucose Arterial Blood Ionized Calcium Urine WBC (Auto) Coronavirus (PCR) SARS-CoV-2 IgG Ab Crossmatch 06/01/20 06/02/20 06/02/20 23:12 04:00 05:31 WBC RBC Hgb Hct MCV MCH MCHC RDW Lymph % (Auto) [place] % (Auto) Lymph # (Auto) [place] # (Auto) Baso # (Auto) Seg Neutrophils % Seg Neuts % (Manual) Lymphocytes % (Manual) Nucleated RBC % Seg Neutrophils # Seg Neutrophils # Man Lymphocytes # (Manual) Monocytes # (Manual) Eosinophils # (Manual) PT INR APTT D-Dimer Heparin Anti-Xa Level ABG pH 7.465 H POC ABG pCO2 POC ABG pO2 ABG pO2 203.4 H ABG HCO3 41.2 H ABG O2 Saturation 99.3 H ABG Base Excess 15.1 H ABG Hemoglobin 11.5 L ABG Oxyhemoglobin ABG Sodium ABG Potassium ABG Chloride ABG Glucose Oxyhemoglobin Carboxyhemoglobin Sodium Potassium Chloride Carbon Dioxide BUN Creatinine Glucose POC Glucose 197 H 184 H Lactic Acid Calcium Magnesium Ferritin Total Bilirubin Direct Bilirubin AST ALT Alkaline Phosphatase Lactate Dehydrogenase C-Reactive Protein Total Protein Albumin Triglycerides Lipase Arterial Blood Glucose Arterial Blood Ionized Calcium Urine WBC (Auto) Coronavirus (PCR) SARS-CoV-2 IgG Ab Crossmatch 06/02/20 06/02/20 06/02/20 11:49 18:06 23:00 WBC RBC Hgb Hct MCV MCH MCHC RDW Lymph % (Auto) [place] % (Auto) Lymph # (Auto) [place] # (Auto) Baso # (Auto) Seg Neutrophils % Seg Neuts % (Manual) Lymphocytes % (Manual) Nucleated RBC % Seg Neutrophils # Seg Neutrophils # Man Lymphocytes # (Manual) Monocytes # (Manual) Eosinophils # (Manual) PT INR APTT D-Dimer Heparin Anti-Xa Level ABG pH POC ABG pCO2 POC ABG pO2 ABG pO2 ABG HCO3 ABG O2 Saturation ABG Base Excess ABG Hemoglobin ABG Oxyhemoglobin ABG Sodium ABG Potassium ABG Chloride ABG Glucose Oxyhemoglobin Carboxyhemoglobin Sodium Potassium Chloride Carbon Dioxide BUN Creatinine Glucose POC Glucose 195 H 177 H 228 H Lactic Acid Calcium Magnesium Ferritin Total Bilirubin Direct Bilirubin AST ALT Alkaline Phosphatase Lactate Dehydrogenase C-Reactive Protein Total Protein Albumin Triglycerides Lipase Arterial Blood Glucose Arterial Blood Ionized Calcium Urine WBC (Auto) Coronavirus (PCR) SARS-CoV-2 IgG Ab Crossmatch 06/03/20 06/03/20 06/03/20 03:58 05:19 12:21 WBC RBC Hgb Hct MCV MCH MCHC RDW Lymph % (Auto) [place] % (Auto) Lymph # (Auto) [place] # (Auto) Baso # (Auto) Seg Neutrophils % Seg Neuts % (Manual) Lymphocytes % (Manual) Nucleated RBC % Seg Neutrophils # Seg Neutrophils # Man Lymphocytes # (Manual) Monocytes # (Manual) Eosinophils # (Manual) PT INR APTT D-Dimer Heparin Anti-Xa Level ABG pH POC ABG pCO2 POC ABG pO2 ABG pO2 171.0 H ABG HCO3 42.8 H ABG O2 Saturation ABG Base Excess 15.6 H ABG Hemoglobin 12.3 L ABG Oxyhemoglobin ABG Sodium ABG Potassium ABG Chloride ABG Glucose Oxyhemoglobin Carboxyhemoglobin Sodium Potassium Chloride Carbon Dioxide BUN Creatinine Glucose POC Glucose 122 H 207 H Lactic Acid Calcium Magnesium Ferritin Total Bilirubin Direct Bilirubin AST ALT Alkaline Phosphatase Lactate Dehydrogenase C-Reactive Protein Total Protein Albumin Triglycerides Lipase Arterial Blood Glucose Arterial Blood Ionized Calcium Urine WBC (Auto) Coronavirus (PCR) SARS-CoV-2 IgG Ab Crossmatch 06/03/20 06/03/2020 17:27 23:50 03:55 WBC RBC Hgb Hct MCV MCH MCHC RDW Lymph % (Auto) [place] % (Auto) Lymph # (Auto) [place] # (Auto) Baso # (Auto) Seg Neutrophils % Seg Neuts % (Manual) Lymphocytes % (Manual) Nucleated RBC % Seg Neutrophils # Seg Neutrophils # Man Lymphocytes # (Manual) Monocytes # (Manual) Eosinophils # (Manual) PT INR APTT D-Dimer Heparin Anti-Xa Level ABG pH POC ABG pCO2 POC ABG pO2 ABG pO2 117.2 H ABG HCO3 42.4 H ABG O2 Saturation ABG Base Excess 15.3 H ABG Hemoglobin 10.5 L ABG Oxyhemoglobin ABG Sodium ABG Potassium ABG Chloride ABG Glucose Oxyhemoglobin Carboxyhemoglobin Sodium Potassium Chloride Carbon Dioxide BUN Creatinine Glucose POC Glucose 157 H 214 H Lactic Acid Calcium Magnesium Ferritin Total Bilirubin Direct Bilirubin AST ALT Alkaline Phosphatase Lactate Dehydrogenase C-Reactive Protein Total Protein Albumin Triglycerides Lipase Arterial Blood Glucose Arterial Blood Ionized Calcium Urine WBC (Auto) Coronavirus (PCR) SARS-CoV-2 IgG Ab Crossmatch 06/04/20 06/04/20 06/04/20 05:49 11:41 17:30 WBC RBC Hgb Hct MCV MCH MCHC RDW Lymph % (Auto) [place] % (Auto) Lymph # (Auto) [place] # (Auto) Baso # (Auto) Seg Neutrophils % Seg Neuts % (Manual) Lymphocytes % (Manual) Nucleated RBC % Seg Neutrophils # Seg Neutrophils # Man Lymphocytes # (Manual) Monocytes # (Manual) Eosinophils # (Manual) PT INR APTT D-Dimer Heparin Anti-Xa Level ABG pH POC ABG pCO2 POC ABG pO2 ABG pO2 ABG HCO3 ABG O2 Saturation ABG Base Excess ABG Hemoglobin ABG Oxyhemoglobin ABG Sodium ABG Potassium ABG Chloride ABG Glucose Oxyhemoglobin Carboxyhemoglobin Sodium Potassium Chloride Carbon Dioxide BUN Creatinine Glucose POC Glucose 149 H 233 H 156 H Lactic Acid Calcium Magnesium Ferritin Total Bilirubin Direct Bilirubin AST ALT Alkaline Phosphatase Lactate Dehydrogenase C-Reactive Protein Total Protein Albumin Triglycerides Lipase Arterial Blood Glucose Arterial Blood Ionized Calcium Urine WBC (Auto) Coronavirus (PCR) SARS-CoV-2 IgG Ab Crossmatch 06/04/20 06/04/20 06/04/20 19:01 20:53 23:41 WBC RBC 3.18 L Hgb 10.8 L Hct 31.8 L MCV 100 H MCH 34 H MCHC RDW Lymph % (Auto) [place] % (Auto) Lymph # (Auto) [place] # (Auto) Baso # (Auto) Seg Neutrophils % Seg Neuts % (Manual) 86.0 H Lymphocytes % (Manual) 10.0 L Nucleated RBC % 1.0 H Seg Neutrophils # Seg Neutrophils # Man 8.5 H Lymphocytes # (Manual) 1.0 L Monocytes # (Manual) Eosinophils # (Manual) PT INR APTT D-Dimer Heparin Anti-Xa Level ABG pH POC ABG pCO2 POC ABG pO2 ABG pO2 ABG HCO3 ABG O2 Saturation ABG Base Excess ABG Hemoglobin ABG Oxyhemoglobin ABG Sodium ABG Potassium ABG Chloride ABG Glucose Oxyhemoglobin Carboxyhemoglobin Sodium Potassium 3.4 L D Chloride 96.5 L Carbon Dioxide 41 H* BUN 27 H Creatinine 0.5 L Glucose 173 H POC Glucose 217 H Lactic Acid Calcium Magnesium Ferritin Total Bilirubin Direct Bilirubin AST ALT Alkaline Phosphatase Lactate Dehydrogenase C-Reactive Protein Total Protein Albumin Triglycerides Lipase Arterial Blood Glucose Arterial Blood Ionized Calcium Urine WBC (Auto) Coronavirus (PCR) SARS-CoV-2 IgG Ab Crossmatch 06/05/20 06/05/20 06/05/20 06:05 11:54 12:35 WBC RBC Hgb Hct MCV MCH MCHC RDW Lymph % (Auto) [place] % (Auto) Lymph # (Auto) [place] # (Auto) Baso # (Auto) Seg Neutrophils % Seg Neuts % (Manual) Lymphocytes % (Manual) Nucleated RBC % Seg Neutrophils # Seg Neutrophils # Man Lymphocytes # (Manual) Monocytes # (Manual) Eosinophils # (Manual) PT INR APTT D-Dimer Heparin Anti-Xa Level ABG pH POC ABG pCO2 POC ABG pO2 ABG pO2 127.9 H ABG HCO3 41.1 H ABG O2 Saturation ABG Base Excess 13.0 H ABG Hemoglobin 13.4 L ABG Oxyhemoglobin ABG Sodium ABG Potassium ABG Chloride ABG Glucose Oxyhemoglobin Carboxyhemoglobin Sodium Potassium Chloride Carbon Dioxide BUN Creatinine Glucose POC Glucose 137 H 211 H Lactic Acid Calcium Magnesium Ferritin Total Bilirubin Direct Bilirubin AST ALT Alkaline Phosphatase Lactate Dehydrogenase C-Reactive Protein Total Protein Albumin Triglycerides Lipase Arterial Blood Glucose Arterial Blood Ionized Calcium Urine WBC (Auto) Coronavirus (PCR) SARS-CoV-2 IgG Ab Crossmatch 06/05/20 06/05/20 06/06/20 17:03 23:49 04:42 WBC RBC Hgb Hct MCV MCH MCHC RDW Lymph % (Auto) [place] % (Auto) Lymph # (Auto) [place] # (Auto) Baso # (Auto) Seg Neutrophils % Seg Neuts % (Manual) Lymphocytes % (Manual) Nucleated RBC % Seg Neutrophils # Seg Neutrophils # Man Lymphocytes # (Manual) Monocytes # (Manual) Eosinophils # (Manual) PT INR APTT D-Dimer Heparin Anti-Xa Level ABG pH POC ABG pCO2 56.1 H POC ABG pO2 52.5 L ABG pO2 ABG HCO3 ABG O2 Saturation ABG Base Excess ABG Hemoglobin 11.7 L ABG Oxyhemoglobin ABG Sodium ABG Potassium 3.3 L ABG Chloride 95.0 L ABG Glucose 156 H Oxyhemoglobin Carboxyhemoglobin Sodium Potassium Chloride Carbon Dioxide BUN Creatinine Glucose POC Glucose 159 H 194 H Lactic Acid Calcium Magnesium Ferritin Total Bilirubin Direct Bilirubin AST ALT Alkaline Phosphatase Lactate Dehydrogenase C-Reactive Protein Total Protein Albumin Triglycerides Lipase Arterial Blood Glucose 156 H Arterial Blood Ionized Calcium Urine WBC (Auto) Coronavirus (PCR) SARS-CoV-2 IgG Ab Crossmatch 06/06/20 06/06/20 06/06/20 05:57 12:06 17:38 WBC RBC Hgb Hct MCV MCH MCHC RDW Lymph % (Auto) [place] % (Auto) Lymph # (Auto) [place] # (Auto) Baso # (Auto) Seg Neutrophils % Seg Neuts % (Manual) Lymphocytes % (Manual) Nucleated RBC % Seg Neutrophils # Seg Neutrophils # Man Lymphocytes # (Manual) Monocytes # (Manual) Eosinophils # (Manual) PT INR APTT D-Dimer Heparin Anti-Xa Level ABG pH POC ABG pCO2 POC ABG pO2 ABG pO2 ABG HCO3 ABG O2 Saturation ABG Base Excess ABG Hemoglobin ABG Oxyhemoglobin ABG Sodium ABG Potassium ABG Chloride ABG Glucose Oxyhemoglobin Carboxyhemoglobin Sodium Potassium Chloride Carbon Dioxide BUN Creatinine Glucose POC Glucose 144 H 230 H 162 H Lactic Acid Calcium Magnesium Ferritin Total Bilirubin Direct Bilirubin AST ALT Alkaline Phosphatase Lactate Dehydrogenase C-Reactive Protein Total Protein Albumin Triglycerides Lipase Arterial Blood Glucose Arterial Blood Ionized Calcium Urine WBC (Auto) Coronavirus (PCR) SARS-CoV-2 IgG Ab Crossmatch 06/06/20 06/07/20 06/07/20 23:50 04:34 06:03 WBC RBC Hgb Hct MCV MCH MCHC RDW Lymph % (Auto) [place] % (Auto) Lymph # (Auto) [place] # (Auto) Baso # (Auto) Seg Neutrophils % Seg Neuts % (Manual) Lymphocytes % (Manual) Nucleated RBC % Seg Neutrophils # Seg Neutrophils # Man Lymphocytes # (Manual) Monocytes # (Manual) Eosinophils # (Manual) PT INR APTT D-Dimer Heparin Anti-Xa Level ABG pH 7.511 H POC ABG pCO2 53.5 H POC ABG pO2 114.5 H ABG pO2 ABG HCO3 ABG O2 Saturation ABG Base Excess ABG Hemoglobin 9.4 L ABG Oxyhemoglobin ABG Sodium 134.5 L ABG Potassium ABG Chloride 94.0 L ABG Glucose 186 H Oxyhemoglobin Carboxyhemoglobin Sodium Potassium Chloride Carbon Dioxide BUN Creatinine Glucose POC Glucose 181 H 155 H Lactic Acid Calcium Magnesium Ferritin Total Bilirubin Direct Bilirubin AST ALT Alkaline Phosphatase Lactate Dehydrogenase C-Reactive Protein Total Protein Albumin Triglycerides Lipase Arterial Blood Glucose 186 H Arterial Blood Ionized Calcium 4.5 L Urine WBC (Auto) Coronavirus (PCR) SARS-CoV-2 IgG Ab Crossmatch 06/07/20 06/07/20 06/07/20 13:41 14:58 14:58 WBC RBC 2.72 L Hgb 9.3 L Hct 27.2 L MCV 100 H MCH 34 H MCHC RDW Lymph % (Auto) [place] % (Auto) Lymph # (Auto) [place] # (Auto) Baso # (Auto) Seg Neutrophils % Seg Neuts % (Manual) Lymphocytes % (Manual) Nucleated RBC % Seg Neutrophils # Seg Neutrophils # Man Lymphocytes # (Manual) Monocytes # (Manual) Eosinophils # (Manual) PT INR APTT D-Dimer Heparin Anti-Xa Level ABG pH POC ABG pCO2 POC ABG pO2 ABG pO2 ABG HCO3 ABG O2 Saturation ABG Base Excess ABG Hemoglobin ABG Oxyhemoglobin ABG Sodium ABG Potassium ABG Chloride ABG Glucose Oxyhemoglobin Carboxyhemoglobin Sodium Potassium Chloride 93.5 L Carbon Dioxide 39 H BUN 22 H Creatinine 0.4 L Glucose 188 H POC Glucose 201 H Lactic Acid Calcium Magnesium Ferritin Total Bilirubin Direct Bilirubin AST 61 H ALT 273 H Alkaline Phosphatase Lactate Dehydrogenase C-Reactive Protein Total Protein 5.9 L Albumin 2.7 L Triglycerides Lipase Arterial Blood Glucose Arterial Blood Ionized Calcium Urine WBC (Auto) Coronavirus (PCR) SARS-CoV-2 IgG Ab Crossmatch 06/07/20 06/08/20 06/08/20 23:18 05:31 12:07 WBC RBC Hgb Hct MCV MCH MCHC RDW Lymph % (Auto) [place] % (Auto) Lymph # (Auto) [place] # (Auto) Baso # (Auto) Seg Neutrophils % Seg Neuts % (Manual) Lymphocytes % (Manual) Nucleated RBC % Seg Neutrophils # Seg Neutrophils # Man Lymphocytes # (Manual) Monocytes # (Manual) Eosinophils # (Manual) PT INR APTT D-Dimer Heparin Anti-Xa Level ABG pH POC ABG pCO2 POC ABG pO2 ABG pO2 ABG HCO3 ABG O2 Saturation ABG Base Excess ABG Hemoglobin ABG Oxyhemoglobin ABG Sodium ABG Potassium ABG Chloride ABG Glucose Oxyhemoglobin Carboxyhemoglobin Sodium Potassium Chloride Carbon Dioxide BUN Creatinine Glucose POC Glucose 214 H 129 H 179 H Lactic Acid Calcium Magnesium Ferritin Total Bilirubin Direct Bilirubin AST ALT Alkaline Phosphatase Lactate Dehydrogenase C-Reactive Protein Total Protein Albumin Triglycerides Lipase Arterial Blood Glucose Arterial Blood Ionized Calcium Urine WBC (Auto) Coronavirus (PCR) SARS-CoV-2 IgG Ab Crossmatch 06/08/20 06/08/20 06/09/20 18:18 23:35 05:42 WBC RBC Hgb Hct MCV MCH MCHC RDW Lymph % (Auto) [place] % (Auto) Lymph # (Auto) [place] # (Auto) Baso # (Auto) Seg Neutrophils % Seg Neuts % (Manual) Lymphocytes % (Manual) Nucleated RBC % Seg Neutrophils # Seg Neutrophils # Man Lymphocytes # (Manual) Monocytes # (Manual) Eosinophils # (Manual) PT INR APTT D-Dimer Heparin Anti-Xa Level ABG pH POC ABG pCO2 POC ABG pO2 ABG pO2 ABG HCO3 ABG O2 Saturation ABG Base Excess ABG Hemoglobin ABG Oxyhemoglobin ABG Sodium ABG Potassium ABG Chloride ABG Glucose Oxyhemoglobin Carboxyhemoglobin Sodium Potassium Chloride Carbon Dioxide BUN Creatinine Glucose POC Glucose 172 H 177 H 137 H Lactic Acid Calcium Magnesium Ferritin Total Bilirubin Direct Bilirubin AST ALT Alkaline Phosphatase Lactate Dehydrogenase C-Reactive Protein Total Protein Albumin Triglycerides Lipase Arterial Blood Glucose Arterial Blood Ionized Calcium Urine WBC (Auto) Coronavirus (PCR) SARS-CoV-2 IgG Ab Crossmatch 06/09/20 06/09/20 06/09/20 06:20 07:55 07:55 WBC 12.4 H RBC 3.26 L Hgb 11.1 L Hct 33.4 L D MCV 102 H MCH 34 H MCHC RDW Lymph % (Auto) [place] % (Auto) Lymph # (Auto) [place] # (Auto) Baso # (Auto) Seg Neutrophils % Seg Neuts % (Manual) Lymphocytes % (Manual) Nucleated RBC % Seg Neutrophils # Seg Neutrophils # Man Lymphocytes # (Manual) Monocytes # (Manual) Eosinophils # (Manual) PT INR APTT D-Dimer Heparin Anti-Xa Level ABG pH 7.466 H POC ABG pCO2 50.7 H POC ABG pO2 53.0 L ABG pO2 ABG HCO3 ABG O2 Saturation ABG Base Excess ABG Hemoglobin ABG Oxyhemoglobin ABG Sodium ABG Potassium 2.9 L ABG Chloride 93.0 L ABG Glucose 138 H Oxyhemoglobin Carboxyhemoglobin Sodium Potassium 3.0 L Chloride 92.3 L Carbon Dioxide 37 H BUN 21 H Creatinine 0.6 L Glucose 120 H POC Glucose Lactic Acid Calcium Magnesium Ferritin Total Bilirubin Direct Bilirubin AST ALT Alkaline Phosphatase Lactate Dehydrogenase C-Reactive Protein Total Protein Albumin Triglycerides Lipase Arterial Blood Glucose 138 H Arterial Blood Ionized Calcium 4.5 L Urine WBC (Auto) Coronavirus (PCR) SARS-CoV-2 IgG Ab Crossmatch 06/09/20 06/09/20 06/10/20 11:22 18:32 04:46 WBC RBC Hgb Hct MCV MCH MCHC RDW Lymph % (Auto) [place] % (Auto) Lymph # (Auto) [place] # (Auto) Baso # (Auto) Seg Neutrophils % Seg Neuts % (Manual) Lymphocytes % (Manual) Nucleated RBC % Seg Neutrophils # Seg Neutrophils # Man Lymphocytes # (Manual) Monocytes # (Manual) Eosinophils # (Manual) PT INR APTT D-Dimer Heparin Anti-Xa Level ABG pH 7.501 H POC ABG pCO2 POC ABG pO2 126.5 H ABG pO2 ABG HCO3 ABG O2 Saturation ABG Base Excess ABG Hemoglobin 10.3 L ABG Oxyhemoglobin ABG Sodium ABG Potassium ABG Chloride ABG Glucose 220 H Oxyhemoglobin Carboxyhemoglobin Sodium Potassium Chloride Carbon Dioxide BUN Creatinine Glucose POC Glucose 117 H 121 H Lactic Acid Calcium Magnesium Ferritin Total Bilirubin Direct Bilirubin AST ALT Alkaline Phosphatase Lactate Dehydrogenase C-Reactive Protein Total Protein Albumin Triglycerides Lipase Arterial Blood Glucose 220 H Arterial Blood Ionized Calcium Urine WBC (Auto) Coronavirus (PCR) SARS-CoV-2 IgG Ab Crossmatch 06/10/20 06/10/20 06/10/20 05:30 09:38 12:03 WBC RBC Hgb Hct MCV MCH MCHC RDW Lymph % (Auto) [place] % (Auto) Lymph # (Auto) [place] # (Auto) Baso # (Auto) Seg Neutrophils % Seg Neuts % (Manual) Lymphocytes % (Manual) Nucleated RBC % Seg Neutrophils # Seg Neutrophils # Man Lymphocytes # (Manual) Monocytes # (Manual) Eosinophils # (Manual) PT INR APTT D-Dimer Heparin Anti-Xa Level ABG pH POC ABG pCO2 POC ABG pO2 ABG pO2 ABG HCO3 ABG O2 Saturation ABG Base Excess ABG Hemoglobin ABG Oxyhemoglobin ABG Sodium ABG Potassium ABG Chloride ABG Glucose Oxyhemoglobin Carboxyhemoglobin Sodium Potassium Chloride Carbon Dioxide BUN Creatinine Glucose POC Glucose 181 H 204 H Lactic Acid Calcium Magnesium Ferritin Total Bilirubin Direct Bilirubin AST ALT Alkaline Phosphatase Lactate Dehydrogenase C-Reactive Protein Total Protein Albumin Triglycerides 738 H Lipase Arterial Blood Glucose Arterial Blood Ionized Calcium Urine WBC (Auto) Coronavirus (PCR) SARS-CoV-2 IgG Ab Crossmatch 06/10/20 06/11/20 06/11/20 17:17 00:04 04:38 WBC RBC Hgb Hct MCV MCH MCHC RDW Lymph % (Auto) [place] % (Auto) Lymph # (Auto) [place] # (Auto) Baso # (Auto) Seg Neutrophils % Seg Neuts % (Manual) Lymphocytes % (Manual) Nucleated RBC % Seg Neutrophils # Seg Neutrophils # Man Lymphocytes # (Manual) Monocytes # (Manual) Eosinophils # (Manual) PT INR APTT D-Dimer Heparin Anti-Xa Level ABG pH 7.479 H POC ABG pCO2 POC ABG pO2 76.7 L ABG pO2 ABG HCO3 ABG O2 Saturation ABG Base Excess ABG Hemoglobin 9.8 L ABG Oxyhemoglobin ABG Sodium 135.8 L ABG Potassium ABG Chloride ABG Glucose 238 H Oxyhemoglobin Carboxyhemoglobin Sodium Potassium Chloride Carbon Dioxide BUN Creatinine Glucose POC Glucose 156 H 178 H Lactic Acid Calcium Magnesium Ferritin Total Bilirubin Direct Bilirubin AST ALT Alkaline Phosphatase Lactate Dehydrogenase C-Reactive Protein Total Protein Albumin Triglycerides Lipase Arterial Blood Glucose 238 H Arterial Blood Ionized Calcium Urine WBC (Auto) Coronavirus (PCR) SARS-CoV-2 IgG Ab Crossmatch 06/11/20 06/11/20 06/11/20 05:21 06:52 11:50 WBC RBC Hgb Hct MCV MCH MCHC RDW Lymph % (Auto) [place] % (Auto) Lymph # (Auto) [place] # (Auto) Baso # (Auto) Seg Neutrophils % Seg Neuts % (Manual) Lymphocytes % (Manual) Nucleated RBC % Seg Neutrophils # Seg Neutrophils # Man Lymphocytes # (Manual) Monocytes # (Manual) Eosinophils # (Manual) PT INR APTT D-Dimer Heparin Anti-Xa Level ABG pH POC ABG pCO2 POC ABG pO2 ABG pO2 ABG HCO3 ABG O2 Saturation ABG Base Excess ABG Hemoglobin ABG Oxyhemoglobin ABG Sodium ABG Potassium ABG Chloride ABG Glucose Oxyhemoglobin Carboxyhemoglobin Sodium Potassium Chloride Carbon Dioxide BUN Creatinine Glucose POC Glucose 215 H 187 H Lactic Acid Calcium Magnesium Ferritin Total Bilirubin Direct Bilirubin AST ALT Alkaline Phosphatase Lactate Dehydrogenase C-Reactive Protein Total Protein Albumin Triglycerides 331 H Lipase Arterial Blood Glucose Arterial Blood Ionized Calcium Urine WBC (Auto) Coronavirus (PCR) SARS-CoV-2 IgG Ab Crossmatch 06/11/20 06/11/20 06/12/20 17:49 23:35 04:52 WBC RBC Hgb Hct MCV MCH MCHC RDW Lymph % (Auto) [place] % (Auto) Lymph # (Auto) [place] # (Auto) Baso # (Auto) Seg Neutrophils % Seg Neuts % (Manual) Lymphocytes % (Manual) Nucleated RBC % Seg Neutrophils # Seg Neutrophils # Man Lymphocytes # (Manual) Monocytes # (Manual) Eosinophils # (Manual) PT INR APTT D-Dimer Heparin Anti-Xa Level ABG pH 7.486 H POC ABG pCO2 POC ABG pO2 ABG pO2 ABG HCO3 ABG O2 Saturation ABG Base Excess ABG Hemoglobin 9.4 L ABG Oxyhemoglobin ABG Sodium ABG Potassium 3.2 L ABG Chloride ABG Glucose 209 H Oxyhemoglobin Carboxyhemoglobin Sodium Potassium Chloride Carbon Dioxide BUN Creatinine Glucose POC Glucose 211 H 200 H Lactic Acid Calcium Magnesium Ferritin Total Bilirubin Direct Bilirubin AST ALT Alkaline Phosphatase Lactate Dehydrogenase C-Reactive Protein Total Protein Albumin Triglycerides Lipase Arterial Blood Glucose 209 H Arterial Blood Ionized Calcium Urine WBC (Auto) Coronavirus (PCR) SARS-CoV-2 IgG Ab Crossmatch 06/12/20 06/12/20 06/12/20 05:13 11:47 18:33 WBC RBC Hgb Hct MCV MCH MCHC RDW Lymph % (Auto) [place] % (Auto) Lymph # (Auto) [place] # (Auto) Baso # (Auto) Seg Neutrophils % Seg Neuts % (Manual) Lymphocytes % (Manual) Nucleated RBC % Seg Neutrophils # Seg Neutrophils # Man Lymphocytes # (Manual) Monocytes # (Manual) Eosinophils # (Manual) PT INR APTT D-Dimer Heparin Anti-Xa Level ABG pH POC ABG pCO2 POC ABG pO2 ABG pO2 ABG HCO3 ABG O2 Saturation ABG Base Excess ABG Hemoglobin ABG Oxyhemoglobin ABG Sodium ABG Potassium ABG Chloride ABG Glucose Oxyhemoglobin Carboxyhemoglobin Sodium Potassium Chloride Carbon Dioxide BUN Creatinine Glucose POC Glucose 174 H 214 H 194 H Lactic Acid Calcium Magnesium Ferritin Total Bilirubin Direct Bilirubin AST ALT Alkaline Phosphatase Lactate Dehydrogenase C-Reactive Protein Total Protein Albumin Triglycerides Lipase Arterial Blood Glucose Arterial Blood Ionized Calcium Urine WBC (Auto) Coronavirus (PCR) SARS-CoV-2 IgG Ab Crossmatch 06/12/20 06/13/20 06/13/20 23:49 05:41 12:30 WBC RBC Hgb Hct MCV MCH MCHC RDW Lymph % (Auto) [place] % (Auto) Lymph # (Auto) [place] # (Auto) Baso # (Auto) Seg Neutrophils % Seg Neuts % (Manual) Lymphocytes % (Manual) Nucleated RBC % Seg Neutrophils # Seg Neutrophils # Man Lymphocytes # (Manual) Monocytes # (Manual) Eosinophils # (Manual) PT INR APTT D-Dimer Heparin Anti-Xa Level ABG pH POC ABG pCO2 POC ABG pO2 ABG pO2 ABG HCO3 ABG O2 Saturation ABG Base Excess ABG Hemoglobin ABG Oxyhemoglobin ABG Sodium ABG Potassium ABG Chloride ABG Glucose Oxyhemoglobin Carboxyhemoglobin Sodium Potassium Chloride Carbon Dioxide BUN Creatinine Glucose POC Glucose 160 H 150 H 181 H Lactic Acid Calcium Magnesium Ferritin Total Bilirubin Direct Bilirubin AST ALT Alkaline Phosphatase Lactate Dehydrogenase C-Reactive Protein Total Protein Albumin Triglycerides Lipase Arterial Blood Glucose Arterial Blood Ionized Calcium Urine WBC (Auto) Coronavirus (PCR) SARS-CoV-2 IgG Ab Crossmatch 06/13/20 06/13/20 06/13/20 14:14 17:48 23:27 WBC 12.8 H RBC 2.33 L Hgb 8.0 L Hct 23.3 L MCV 100 H MCH 34 H MCHC RDW 15.7 H Lymph % (Auto) [place] % (Auto) Lymph # (Auto) [place] # (Auto) Baso # (Auto) Seg Neutrophils % Seg Neuts % (Manual) 85.0 H Lymphocytes % (Manual) 10.0 L Nucleated RBC % Seg Neutrophils # Seg Neutrophils # Man 10.9 H Lymphocytes # (Manual) Monocytes # (Manual) Eosinophils # (Manual) PT INR APTT D-Dimer Heparin Anti-Xa Level ABG pH POC ABG pCO2 POC ABG pO2 ABG pO2 ABG HCO3 ABG O2 Saturation ABG Base Excess ABG Hemoglobin ABG Oxyhemoglobin ABG Sodium ABG Potassium ABG Chloride ABG Glucose Oxyhemoglobin Carboxyhemoglobin Sodium Potassium Chloride Carbon Dioxide BUN Creatinine Glucose POC Glucose 173 H 154 H Lactic Acid Calcium Magnesium Ferritin Total Bilirubin Direct Bilirubin AST ALT Alkaline Phosphatase Lactate Dehydrogenase C-Reactive Protein Total Protein Albumin Triglycerides Lipase Arterial Blood Glucose Arterial Blood Ionized Calcium Urine WBC (Auto) Coronavirus (PCR) SARS-CoV-2 IgG Ab Crossmatch 06/14/20 06/14/20 06/14/20 03:58 05:21 07:15 WBC 26.2 H RBC 2.97 L Hgb 9.7 L Hct 29.9 L D MCV 101 H MCH 33 H MCHC RDW 15.3 H Lymph % (Auto) [place] % (Auto) Lymph # (Auto) [place] # (Auto) Baso # (Auto) Seg Neutrophils % Seg Neuts % (Manual) 79.0 H Lymphocytes % (Manual) 5.0 L Nucleated RBC % 3.0 H Seg Neutrophils # Seg Neutrophils # Man 20.7 H Lymphocytes # (Manual) Monocytes # (Manual) 1.3 H Eosinophils # (Manual) PT INR APTT D-Dimer Heparin Anti-Xa Level ABG pH POC ABG pCO2 51.5 H POC ABG pO2 70.0 L ABG pO2 ABG HCO3 ABG O2 Saturation ABG Base Excess ABG Hemoglobin 10.1 L ABG Oxyhemoglobin ABG Sodium 131.5 L ABG Potassium 3.1 L ABG Chloride 93.0 L ABG Glucose 188 H Oxyhemoglobin Carboxyhemoglobin Sodium Potassium Chloride Carbon Dioxide BUN Creatinine Glucose POC Glucose 147 H Lactic Acid Calcium Magnesium Ferritin Total Bilirubin Direct Bilirubin AST ALT Alkaline Phosphatase Lactate Dehydrogenase C-Reactive Protein Total Protein Albumin Triglycerides Lipase Arterial Blood Glucose 188 H Arterial Blood Ionized Calcium Urine WBC (Auto) Coronavirus (PCR) SARS-CoV-2 IgG Ab Crossmatch 12/01/2506/14/20 06/14/20 07:15 11:30 11:50 WBC RBC Hgb Hct MCV MCH MCHC RDW Lymph % (Auto) [place] % (Auto) Lymph # (Auto) [place] # (Auto) Baso # (Auto) Seg Neutrophils % Seg Neuts % (Manual) Lymphocytes % (Manual) Nucleated RBC % Seg Neutrophils # Seg Neutrophils # Man Lymphocytes # (Manual) Monocytes # (Manual) Eosinophils # (Manual) PT INR APTT D-Dimer Heparin Anti-Xa Level ABG pH POC ABG pCO2 POC ABG pO2 ABG pO2 ABG HCO3 ABG O2 Saturation ABG Base Excess ABG Hemoglobin ABG Oxyhemoglobin ABG Sodium ABG Potassium ABG Chloride ABG Glucose Oxyhemoglobin Carboxyhemoglobin Sodium 135 L Potassium 3.5 L Chloride 90.4 L Carbon Dioxide 38 H BUN Creatinine 0.5 L Glucose 190 H POC Glucose 176 H Lactic Acid Calcium Magnesium Ferritin 1496.0 H Total Bilirubin Direct Bilirubin AST ALT 81 H Alkaline Phosphatase Lactate Dehydrogenase C-Reactive Protein Total Protein Albumin 2.9 L Triglycerides Lipase Arterial Blood Glucose Arterial Blood Ionized Calcium Urine WBC (Auto) Coronavirus (PCR) SARS-CoV-2 IgG Ab Crossmatch 06/14/20 06/15/20 06/15/20 23:31 04:00 05:00 WBC RBC Hgb Hct MCV MCH MCHC RDW Lymph % (Auto) [place] % (Auto) Lymph # (Auto) [place] # (Auto) Baso # (Auto) Seg Neutrophils % Seg Neuts % (Manual) Lymphocytes % (Manual) Nucleated RBC % Seg Neutrophils # Seg Neutrophils # Man Lymphocytes # (Manual) Monocytes # (Manual) Eosinophils # (Manual) PT INR APTT D-Dimer Heparin Anti-Xa Level ABG pH POC ABG pCO2 POC ABG pO2 ABG pO2 ABG HCO3 ABG O2 Saturation ABG Base Excess ABG Hemoglobin ABG Oxyhemoglobin ABG Sodium ABG Potassium ABG Chloride ABG Glucose Oxyhemoglobin Carboxyhemoglobin Sodium 133 L Potassium Chloride 91.1 L Carbon Dioxide 34 H BUN Creatinine 0.4 L Glucose 159 H POC Glucose 200 H Lactic Acid Calcium Magnesium Ferritin Total Bilirubin 2.00 H Direct Bilirubin AST 47 H ALT 77 H Alkaline Phosphatase Lactate Dehydrogenase C-Reactive Protein Total Protein Albumin 2.6 L Triglycerides 152 H Lipase Arterial Blood Glucose Arterial Blood Ionized Calcium Urine WBC (Auto) Coronavirus (PCR) SARS-CoV-2 IgG Ab Crossmatch 06/15/20 06/15/20 06/15/20 05:35 06:27 11:38 WBC RBC Hgb Hct MCV MCH MCHC RDW Lymph % (Auto) [place] % (Auto) Lymph # (Auto) [place] # (Auto) Baso # (Auto) Seg Neutrophils % Seg Neuts % (Manual) Lymphocytes % (Manual) Nucleated RBC % Seg Neutrophils # Seg Neutrophils # Man Lymphocytes # (Manual) Monocytes # (Manual) Eosinophils # (Manual) PT INR APTT D-Dimer Heparin Anti-Xa Level ABG pH POC ABG pCO2 61.0 H POC ABG pO2 67.9 L ABG pO2 ABG HCO3 ABG O2 Saturation ABG Base Excess ABG Hemoglobin 10.4 L ABG Oxyhemoglobin ABG Sodium 132.7 L ABG Potassium 3.3 L ABG Chloride 92.0 L ABG Glucose 158 H Oxyhemoglobin Carboxyhemoglobin Sodium Potassium Chloride Carbon Dioxide BUN Creatinine Glucose POC Glucose 148 H 197 H Lactic Acid Calcium Magnesium Ferritin Total Bilirubin Direct Bilirubin AST ALT Alkaline Phosphatase Lactate Dehydrogenase C-Reactive Protein Total Protein Albumin Triglycerides Lipase Arterial Blood Glucose 158 H Arterial Blood Ionized Calcium Urine WBC (Auto) Coronavirus (PCR) SARS-CoV-2 IgG Ab Crossmatch 06/15/20 06/15/20 06/16/20 17:29 Unknown 00:01 WBC 20.7 H RBC 2.57 L Hgb 8.9 L Hct 25.8 L MCV 101 H MCH 35 H MCHC 35 H RDW 16.0 H Lymph % (Auto) [place] % (Auto) Lymph # (Auto) [place] # (Auto) Baso # (Auto) Seg Neutrophils % Seg Neuts % (Manual) 83.0 H Lymphocytes % (Manual) 8.0 L Nucleated RBC % Seg Neutrophils # Seg Neutrophils # Man 17.2 H Lymphocytes # (Manual) Monocytes # (Manual) 1.2 H Eosinophils # (Manual) PT INR APTT D-Dimer Heparin Anti-Xa Level ABG pH POC ABG pCO2 POC ABG pO2 ABG pO2 ABG HCO3 ABG O2 Saturation ABG Base Excess ABG Hemoglobin ABG Oxyhemoglobin ABG Sodium ABG Potassium ABG Chloride ABG Glucose Oxyhemoglobin Carboxyhemoglobin Sodium Potassium Chloride Carbon Dioxide BUN Creatinine Glucose POC Glucose 231 H 257 H Lactic Acid Calcium Magnesium Ferritin Total Bilirubin Direct Bilirubin AST ALT Alkaline Phosphatase Lactate Dehydrogenase C-Reactive Protein Total Protein Albumin Triglycerides Lipase Arterial Blood Glucose Arterial Blood Ionized Calcium Urine WBC (Auto) Coronavirus (PCR) SARS-CoV-2 IgG Ab Crossmatch 06/16/20 06/16/20 06/16/20 04:00 04:00 05:22 WBC 13.8 H RBC 2.03 L Hgb 7.6 L Hct 20.7 L MCV 102 H MCH 37 H MCHC 37 H RDW 16.2 H Lymph % (Auto) 4.4 L [place] % (Auto) Lymph # (Auto) 0.6 L [place] # (Auto) Baso # (Auto) Seg Neutrophils % Seg Neuts % (Manual) Lymphocytes % (Manual) Nucleated RBC % Seg Neutrophils # 12.7 H Seg Neutrophils # Man Lymphocytes # (Manual) Monocytes # (Manual) Eosinophils # (Manual) PT INR APTT D-Dimer Heparin Anti-Xa Level ABG pH POC ABG pCO2 POC ABG pO2 ABG pO2 ABG HCO3 ABG O2 Saturation ABG Base Excess ABG Hemoglobin ABG Oxyhemoglobin ABG Sodium ABG Potassium ABG Chloride ABG Glucose Oxyhemoglobin Carboxyhemoglobin Sodium 130 L Potassium Chloride 88.9 L Carbon Dioxide 36 H BUN Creatinine 0.3 L Glucose 276 H POC Glucose 250 H Lactic Acid Calcium Magnesium Ferritin Total Bilirubin Direct Bilirubin AST ALT Alkaline Phosphatase Lactate Dehydrogenase C-Reactive Protein Total Protein Albumin Triglycerides Lipase Arterial Blood Glucose Arterial Blood Ionized Calcium Urine WBC (Auto) Coronavirus (PCR) SARS-CoV-2 IgG Ab Crossmatch 06/16/20 06/16/20 06/17/20 12:44 18:18 00:39 WBC RBC Hgb Hct MCV MCH MCHC RDW Lymph % (Auto) [place] % (Auto) Lymph # (Auto) [place] # (Auto) Baso # (Auto) Seg Neutrophils % Seg Neuts % (Manual) Lymphocytes % (Manual) Nucleated RBC % Seg Neutrophils # Seg Neutrophils # Man Lymphocytes # (Manual) Monocytes # (Manual) Eosinophils # (Manual) PT INR APTT D-Dimer Heparin Anti-Xa Level ABG pH POC ABG pCO2 POC ABG pO2 ABG pO2 ABG HCO3 ABG O2 Saturation ABG Base Excess ABG Hemoglobin ABG Oxyhemoglobin ABG Sodium ABG Potassium ABG Chloride ABG Glucose Oxyhemoglobin Carboxyhemoglobin Sodium Potassium Chloride Carbon Dioxide BUN Creatinine Glucose POC Glucose 279 H 239 H 247 H Lactic Acid Calcium Magnesium Ferritin Total Bilirubin Direct Bilirubin AST ALT Alkaline Phosphatase Lactate Dehydrogenase C-Reactive Protein Total Protein Albumin Triglycerides Lipase Arterial Blood Glucose Arterial Blood Ionized Calcium Urine WBC (Auto) Coronavirus (PCR) SARS-CoV-2 IgG Ab Crossmatch 06/17/20 06/17/20 06/17/20 03:40 04:08 10:54 WBC RBC Hgb Hct MCV MCH MCHC RDW Lymph % (Auto) [place] % (Auto) Lymph # (Auto) [place] # (Auto) Baso # (Auto) Seg Neutrophils % Seg Neuts % (Manual) Lymphocytes % (Manual) Nucleated RBC % Seg Neutrophils # Seg Neutrophils # Man Lymphocytes # (Manual) Monocytes # (Manual) Eosinophils # (Manual) PT INR APTT D-Dimer Heparin Anti-Xa Level ABG pH POC ABG pCO2 65.7 H POC ABG pO2 ABG pO2 ABG HCO3 ABG O2 Saturation ABG Base Excess ABG Hemoglobin 11.9 L ABG Oxyhemoglobin ABG Sodium ABG Potassium ABG Chloride 93.0 L ABG Glucose 244 H Oxyhemoglobin Carboxyhemoglobin Sodium Potassium Chloride Carbon Dioxide BUN Creatinine Glucose POC Glucose 221 H 248 H Lactic Acid Calcium Magnesium Ferritin Total Bilirubin Direct Bilirubin AST ALT Alkaline Phosphatase Lactate Dehydrogenase C-Reactive Protein Total Protein Albumin Triglycerides Lipase Arterial Blood Glucose 244 H Arterial Blood Ionized Calcium Urine WBC (Auto) Coronavirus (PCR) SARS-CoV-2 IgG Ab Crossmatch 06/17/20 06/17/20 06/17/20 17:47 23:11 23:29 WBC RBC Hgb Hct MCV MCH MCHC RDW Lymph % (Auto) [place] % (Auto) Lymph # (Auto) [place] # (Auto) Baso # (Auto) Seg Neutrophils % Seg Neuts % (Manual) Lymphocytes % (Manual) Nucleated RBC % Seg Neutrophils # Seg Neutrophils # Man Lymphocytes # (Manual) Monocytes # (Manual) Eosinophils # (Manual) PT INR APTT D-Dimer Heparin Anti-Xa Level ABG pH POC ABG pCO2 85.2 H POC ABG pO2 48.4 L ABG pO2 ABG HCO3 ABG O2 Saturation ABG Base Excess ABG Hemoglobin 8.0 L ABG Oxyhemoglobin ABG Sodium ABG Potassium ABG Chloride 95.0 L ABG Glucose 292 H Oxyhemoglobin Carboxyhemoglobin Sodium Potassium Chloride Carbon Dioxide BUN Creatinine Glucose POC Glucose 245 H 252 H Lactic Acid Calcium Magnesium Ferritin Total Bilirubin Direct Bilirubin AST ALT Alkaline Phosphatase Lactate Dehydrogenase C-Reactive Protein Total Protein Albumin Triglycerides Lipase Arterial Blood Glucose 292 H Arterial Blood Ionized Calcium Urine WBC (Auto) Coronavirus (PCR) SARS-CoV-2 IgG Ab Crossmatch 06/18/20 06/18/20 06/18/20 03:14 05:34 11:47 WBC RBC Hgb Hct MCV MCH MCHC RDW Lymph % (Auto) [place] % (Auto) Lymph # (Auto) [place] # (Auto) Baso # (Auto) Seg Neutrophils % Seg Neuts % (Manual) Lymphocytes % (Manual) Nucleated RBC % Seg Neutrophils # Seg Neutrophils # Man Lymphocytes # (Manual) Monocytes # (Manual) Eosinophils # (Manual) PT INR APTT D-Dimer Heparin Anti-Xa Level ABG pH POC ABG pCO2 65.4 H POC ABG pO2 160.7 H ABG pO2 ABG HCO3 ABG O2 Saturation ABG Base Excess ABG Hemoglobin 7.8 L ABG Oxyhemoglobin ABG Sodium ABG Potassium ABG Chloride 95.0 L ABG Glucose 251 H Oxyhemoglobin Carboxyhemoglobin Sodium Potassium Chloride Carbon Dioxide BUN Creatinine Glucose POC Glucose 243 H 263 H Lactic Acid Calcium Magnesium Ferritin Total Bilirubin Direct Bilirubin AST ALT Alkaline Phosphatase Lactate Dehydrogenase C-Reactive Protein Total Protein Albumin Triglycerides Lipase Arterial Blood Glucose 251 H Arterial Blood Ionized Calcium Urine WBC (Auto) Coronavirus (PCR) SARS-CoV-2 IgG Ab Crossmatch 06/18/20 06/18/20 06/19/20 17:31 23:33 04:32 WBC RBC Hgb Hct MCV MCH MCHC RDW Lymph % (Auto) [place] % (Auto) Lymph # (Auto) [place] # (Auto) Baso # (Auto) Seg Neutrophils % Seg Neuts % (Manual) Lymphocytes % (Manual) Nucleated RBC % Seg Neutrophils # Seg Neutrophils # Man Lymphocytes # (Manual) Monocytes # (Manual) Eosinophils # (Manual) PT INR APTT D-Dimer Heparin Anti-Xa Level ABG pH POC ABG pCO2 83.1 H POC ABG pO2 65.8 L ABG pO2 ABG HCO3 ABG O2 Saturation ABG Base Excess ABG Hemoglobin 8.9 L ABG Oxyhemoglobin ABG Sodium ABG Potassium ABG Chloride 96.0 L ABG Glucose 297 H Oxyhemoglobin Carboxyhemoglobin Sodium Potassium Chloride Carbon Dioxide BUN Creatinine Glucose POC Glucose 286 H 238 H Lactic Acid Calcium Magnesium Ferritin Total Bilirubin Direct Bilirubin AST ALT Alkaline Phosphatase Lactate Dehydrogenase C-Reactive Protein Total Protein Albumin Triglycerides Lipase Arterial Blood Glucose 297 H Arterial Blood Ionized Calcium Urine WBC (Auto) Coronavirus (PCR) SARS-CoV-2 IgG Ab Crossmatch 06/19/20 06/19/20 06/19/20 05:55 11:20 17:12 WBC RBC Hgb Hct MCV MCH MCHC RDW Lymph % (Auto) [place] % (Auto) Lymph # (Auto) [place] # (Auto) Baso # (Auto) Seg Neutrophils % Seg Neuts % (Manual) Lymphocytes % (Manual) Nucleated RBC % Seg Neutrophils # Seg Neutrophils # Man Lymphocytes # (Manual) Monocytes # (Manual) Eosinophils # (Manual) PT INR APTT D-Dimer Heparin Anti-Xa Level ABG pH POC ABG pCO2 POC ABG pO2 ABG pO2 ABG HCO3 ABG O2 Saturation ABG Base Excess ABG Hemoglobin ABG Oxyhemoglobin ABG Sodium ABG Potassium ABG Chloride ABG Glucose Oxyhemoglobin Carboxyhemoglobin Sodium Potassium Chloride Carbon Dioxide BUN Creatinine Glucose POC Glucose 274 H 282 H 298 H Lactic Acid Calcium Magnesium Ferritin Total Bilirubin Direct Bilirubin AST ALT Alkaline Phosphatase Lactate Dehydrogenase C-Reactive Protein Total Protein Albumin Triglycerides Lipase Arterial Blood Glucose Arterial Blood Ionized Calcium Urine WBC (Auto) Coronavirus (PCR) SARS-CoV-2 IgG Ab Crossmatch 06/19/20 06/20/20 06/20/20 23:08 03:33 06:01 WBC RBC Hgb Hct MCV MCH MCHC RDW Lymph % (Auto) [place] % (Auto) Lymph # (Auto) [place] # (Auto) Baso # (Auto) Seg Neutrophils % Seg Neuts % (Manual) Lymphocytes % (Manual) Nucleated RBC % Seg Neutrophils # Seg Neutrophils # Man Lymphocytes # (Manual) Monocytes # (Manual) Eosinophils # (Manual) PT INR APTT D-Dimer Heparin Anti-Xa Level ABG pH POC ABG pCO2 POC ABG pO2 ABG pO2 69.9 L ABG HCO3 50.8 H ABG O2 Saturation ABG Base Excess 24.2 H ABG Hemoglobin 5.8 L ABG Oxyhemoglobin ABG Sodium ABG Potassium ABG Chloride ABG Glucose Oxyhemoglobin Carboxyhemoglobin Sodium Potassium Chloride Carbon Dioxide BUN Creatinine Glucose POC Glucose 293 H 182 H Lactic Acid Calcium Magnesium Ferritin Total Bilirubin Direct Bilirubin AST ALT Alkaline Phosphatase Lactate Dehydrogenase C-Reactive Protein Total Protein Albumin Triglycerides Lipase Arterial Blood Glucose Arterial Blood Ionized Calcium Urine WBC (Auto) Coronavirus (PCR) SARS-CoV-2 IgG Ab Crossmatch 06/20/20 06/20/20 06/20/20 11:47 17:46 23:37 WBC RBC Hgb Hct MCV MCH MCHC RDW Lymph % (Auto) [place] % (Auto) Lymph # (Auto) [place] # (Auto) Baso # (Auto) Seg Neutrophils % Seg Neuts % (Manual) Lymphocytes % (Manual) Nucleated RBC % Seg Neutrophils # Seg Neutrophils # Man Lymphocytes # (Manual) Monocytes # (Manual) Eosinophils # (Manual) PT INR APTT D-Dimer Heparin Anti-Xa Level ABG pH POC ABG pCO2 POC ABG pO2 ABG pO2 ABG HCO3 ABG O2 Saturation ABG Base Excess ABG Hemoglobin ABG Oxyhemoglobin ABG Sodium ABG Potassium ABG Chloride ABG Glucose Oxyhemoglobin Carboxyhemoglobin Sodium Potassium Chloride Carbon Dioxide BUN Creatinine Glucose POC Glucose 170 H 215 H 256 H Lactic Acid Calcium Magnesium Ferritin Total Bilirubin Direct Bilirubin AST ALT Alkaline Phosphatase Lactate Dehydrogenase C-Reactive Protein Total Protein Albumin Triglycerides Lipase Arterial Blood Glucose Arterial Blood Ionized Calcium Urine WBC (Auto) Coronavirus (PCR) SARS-CoV-2 IgG Ab Crossmatch 06/21/20 06/21/20 06/21/20 04:00 05:14 05:51 WBC RBC Hgb Hct MCV MCH MCHC RDW Lymph % (Auto) [place] % (Auto) Lymph # (Auto) [place] # (Auto) Baso # (Auto) Seg Neutrophils % Seg Neuts % (Manual) Lymphocytes % (Manual) Nucleated RBC % Seg Neutrophils # Seg Neutrophils # Man Lymphocytes # (Manual) Monocytes # (Manual) Eosinophils # (Manual) PT INR APTT D-Dimer Heparin Anti-Xa Level ABG pH 7.474 H POC ABG pCO2 POC ABG pO2 ABG pO2 ABG HCO3 52.1 H ABG O2 Saturation ABG Base Excess 23.3 H ABG Hemoglobin 5.3 L ABG Oxyhemoglobin ABG Sodium ABG Potassium ABG Chloride ABG Glucose Oxyhemoglobin 93.8 L Carboxyhemoglobin Sodium Potassium Chloride Carbon Dioxide BUN Creatinine Glucose POC Glucose 122 H 129 H Lactic Acid Calcium Magnesium Ferritin Total Bilirubin Direct Bilirubin AST ALT Alkaline Phosphatase Lactate Dehydrogenase C-Reactive Protein Total Protein Albumin Triglycerides Lipase Arterial Blood Glucose Arterial Blood Ionized Calcium Urine WBC (Auto) Coronavirus (PCR) SARS-CoV-2 IgG Ab Crossmatch 06/21/20 06/21/20 06/21/20 11:00 11:00 11:42 WBC 14.2 H RBC 1.85 L Hgb 6.2 L Hct 19.5 L* MCV 105 H MCH 34 H MCHC RDW 18.0 H Lymph % (Auto) [place] % (Auto) Lymph # (Auto) [place] # (Auto) Baso # (Auto) Seg Neutrophils % Seg Neuts % (Manual) Lymphocytes % (Manual) Nucleated RBC % Seg Neutrophils # Seg Neutrophils # Man Lymphocytes # (Manual) Monocytes # (Manual) Eosinophils # (Manual) PT INR APTT D-Dimer Heparin Anti-Xa Level ABG pH POC ABG pCO2 POC ABG pO2 ABG pO2 ABG HCO3 ABG O2 Saturation ABG Base Excess ABG Hemoglobin ABG Oxyhemoglobin ABG Sodium ABG Potassium ABG Chloride ABG Glucose Oxyhemoglobin Carboxyhemoglobin Sodium 147 H Potassium Chloride Carbon Dioxide 51 H* BUN 31 H Creatinine 0.5 L Glucose 224 H POC Glucose 217 H Lactic Acid Calcium Magnesium Ferritin Total Bilirubin Direct Bilirubin AST ALT Alkaline Phosphatase Lactate Dehydrogenase C-Reactive Protein Total Protein Albumin Triglycerides Lipase Arterial Blood Glucose Arterial Blood Ionized Calcium Urine WBC (Auto) Coronavirus (PCR) SARS-CoV-2 IgG Ab Crossmatch 06/21/20 06/21/20 06/21/20 14:18 14:30 18:36 WBC RBC Hgb Hct MCV MCH MCHC RDW Lymph % (Auto) [place] % (Auto) Lymph # (Auto) [place] # (Auto) Baso # (Auto) Seg Neutrophils % Seg Neuts % (Manual) Lymphocytes % (Manual) Nucleated RBC % Seg Neutrophils # Seg Neutrophils # Man Lymphocytes # (Manual) Monocytes # (Manual) Eosinophils # (Manual) PT 15.1 H INR 1.19 H APTT D-Dimer Heparin Anti-Xa Level ABG pH POC ABG pCO2 POC ABG pO2 ABG pO2 ABG HCO3 ABG O2 Saturation ABG Base Excess ABG Hemoglobin ABG Oxyhemoglobin ABG Sodium ABG Potassium ABG Chloride ABG Glucose Oxyhemoglobin Carboxyhemoglobin Sodium Potassium Chloride Carbon Dioxide BUN Creatinine Glucose POC Glucose 185 H Lactic Acid Calcium Magnesium Ferritin Total Bilirubin Direct Bilirubin AST ALT Alkaline Phosphatase Lactate Dehydrogenase C-Reactive Protein Total Protein Albumin Triglycerides Lipase Arterial Blood Glucose Arterial Blood Ionized Calcium Urine WBC (Auto) Coronavirus (PCR) SARS-CoV-2 IgG Ab Crossmatch See Detail 06/21/20 06/22/20 06/22/20 21:14 03:50 04:00 WBC RBC Hgb Hct MCV MCH MCHC RDW Lymph % (Auto) [place] % (Auto) Lymph # (Auto) [place] # (Auto) Baso # (Auto) Seg Neutrophils % Seg Neuts % (Manual) Lymphocytes % (Manual) Nucleated RBC % Seg Neutrophils # Seg Neutrophils # Man Lymphocytes # (Manual) Monocytes # (Manual) Eosinophils # (Manual) PT INR APTT D-Dimer Heparin Anti-Xa Level ABG pH 7.451 H POC ABG pCO2 POC ABG pO2 ABG pO2 ABG HCO3 47.5 H ABG O2 Saturation ABG Base Excess 22.0 H ABG Hemoglobin < 5.1 L ABG Oxyhemoglobin ABG Sodium ABG Potassium ABG Chloride ABG Glucose Oxyhemoglobin 94.1 L Carboxyhemoglobin Sodium 149 H Potassium 3.5 L Chloride Carbon Dioxide 42 H* D BUN 34 H Creatinine 0.4 L Glucose 219 H POC Glucose 250 H Lactic Acid Calcium Magnesium Ferritin Total Bilirubin Direct Bilirubin AST ALT Alkaline Phosphatase Lactate Dehydrogenase C-Reactive Protein Total Protein Albumin Triglycerides Lipase Arterial Blood Glucose Arterial Blood Ionized Calcium Urine WBC (Auto) Coronavirus (PCR) SARS-CoV-2 IgG Ab Crossmatch 06/22/20 06/22/20 06/22/20 12:16 14:29 17:56 WBC RBC Hgb Hct MCV MCH MCHC RDW Lymph % (Auto) [place] % (Auto) Lymph # (Auto) [place] # (Auto) Baso # (Auto) Seg Neutrophils % Seg Neuts % (Manual) Lymphocytes % (Manual) Nucleated RBC % Seg Neutrophils # Seg Neutrophils # Man Lymphocytes # (Manual) Monocytes # (Manual) Eosinophils # (Manual) PT 11.8 L INR APTT 23.5 L D-Dimer Heparin Anti-Xa Level ABG pH POC ABG pCO2 POC ABG pO2 ABG pO2 ABG HCO3 ABG O2 Saturation ABG Base Excess ABG Hemoglobin ABG Oxyhemoglobin ABG Sodium ABG Potassium ABG Chloride ABG Glucose Oxyhemoglobin Carboxyhemoglobin Sodium Potassium Chloride Carbon Dioxide BUN Creatinine Glucose POC Glucose 215 H 215 H Lactic Acid Calcium Magnesium Ferritin Total Bilirubin Direct Bilirubin AST ALT Alkaline Phosphatase Lactate Dehydrogenase C-Reactive Protein Total Protein Albumin Triglycerides Lipase Arterial Blood Glucose Arterial Blood Ionized Calcium Urine WBC (Auto) Coronavirus (PCR) SARS-CoV-2 IgG Ab Crossmatch 12/06/22/20 06/22/20 23:36 23:45 Unknown WBC 14.1 H RBC 2.70 L Hgb 8.9 L 8.9 L Hct 26.9 L 27.2 L D MCV 101 H MCH 33 H MCHC RDW 17.7 H Lymph % (Auto) [place] % (Auto) Lymph # (Auto) [place] # (Auto) Baso # (Auto) Seg Neutrophils % Seg Neuts % (Manual) 92.0 H Lymphocytes % (Manual) 5.0 L Nucleated RBC % Seg Neutrophils # Seg Neutrophils # Man 13.0 H Lymphocytes # (Manual) 0.7 L Monocytes # (Manual) Eosinophils # (Manual) PT INR APTT D-Dimer Heparin Anti-Xa Level ABG pH POC ABG pCO2 POC ABG pO2 ABG pO2 ABG HCO3 ABG O2 Saturation ABG Base Excess ABG Hemoglobin ABG Oxyhemoglobin ABG Sodium ABG Potassium ABG Chloride ABG Glucose Oxyhemoglobin Carboxyhemoglobin Sodium Potassium Chloride Carbon Dioxide BUN Creatinine Glucose POC Glucose 208 H Lactic Acid Calcium Magnesium Ferritin Total Bilirubin Direct Bilirubin AST ALT Alkaline Phosphatase Lactate Dehydrogenase C-Reactive Protein Total Protein Albumin Triglycerides Lipase Arterial Blood Glucose Arterial Blood Ionized Calcium Urine WBC (Auto) Coronavirus (PCR) SARS-CoV-2 IgG Ab Crossmatch 06/23/20 06/23/20 06/23/20 05:17 05:19 06:50 WBC RBC Hgb Hct MCV MCH MCHC RDW Lymph % (Auto) [place] % (Auto) Lymph # (Auto) [place] # (Auto) Baso # (Auto) Seg Neutrophils % Seg Neuts % (Manual) Lymphocytes % (Manual) Nucleated RBC % Seg Neutrophils # Seg Neutrophils # Man Lymphocytes # (Manual) Monocytes # (Manual) Eosinophils # (Manual) PT INR APTT D-Dimer Heparin Anti-Xa Level ABG pH POC ABG pCO2 69.7 H POC ABG pO2 63.3 L ABG pO2 ABG HCO3 ABG O2 Saturation ABG Base Excess ABG Hemoglobin 10.1 L ABG Oxyhemoglobin ABG Sodium ABG Potassium 3.3 L ABG Chloride ABG Glucose 226 H Oxyhemoglobin Carboxyhemoglobin Sodium Potassium 3.0 L Chloride Carbon Dioxide 41 H* BUN 26 H Creatinine 0.4 L Glucose 209 H POC Glucose 200 H Lactic Acid Calcium Magnesium Ferritin Total Bilirubin Direct Bilirubin AST ALT Alkaline Phosphatase Lactate Dehydrogenase C-Reactive Protein Total Protein Albumin 2.9 L Triglycerides Lipase Arterial Blood Glucose 226 H Arterial Blood Ionized Calcium Urine WBC (Auto) Coronavirus (PCR) SARS-CoV-2 IgG Ab Crossmatch 06/23/20 06/23/20 06/23/20 09:41 12:04 18:16 WBC RBC Hgb 9.1 L Hct 28.0 L MCV MCH MCHC RDW Lymph % (Auto) [place] % (Auto) Lymph # (Auto) [place] # (Auto) Baso # (Auto) Seg Neutrophils % Seg Neuts % (Manual) Lymphocytes % (Manual) Nucleated RBC % Seg Neutrophils # Seg Neutrophils # Man Lymphocytes # (Manual) Monocytes # (Manual) Eosinophils # (Manual) PT INR APTT D-Dimer Heparin Anti-Xa Level ABG pH POC ABG pCO2 POC ABG pO2 ABG pO2 ABG HCO3 ABG O2 Saturation ABG Base Excess ABG Hemoglobin ABG Oxyhemoglobin ABG Sodium ABG Potassium ABG Chloride ABG Glucose Oxyhemoglobin Carboxyhemoglobin Sodium Potassium Chloride Carbon Dioxide BUN Creatinine Glucose POC Glucose 146 H 162 H Lactic Acid Calcium Magnesium Ferritin Total Bilirubin Direct Bilirubin AST ALT Alkaline Phosphatase Lactate Dehydrogenase C-Reactive Protein Total Protein Albumin Triglycerides Lipase Arterial Blood Glucose Arterial Blood Ionized Calcium Urine WBC (Auto) Coronavirus (PCR) SARS-CoV-2 IgG Ab Crossmatch 06/23/20 06/23/20 06/24/20 23:24 23:41 02:39 WBC RBC Hgb 8.2 L 8.8 L Hct 24.9 L 26.8 L MCV MCH MCHC RDW Lymph % (Auto) [place] % (Auto) Lymph # (Auto) [place] # (Auto) Baso # (Auto) Seg Neutrophils % Seg Neuts % (Manual) Lymphocytes % (Manual) Nucleated RBC % Seg Neutrophils # Seg Neutrophils # Man Lymphocytes # (Manual) Monocytes # (Manual) Eosinophils # (Manual) PT INR APTT D-Dimer Heparin Anti-Xa Level ABG pH POC ABG pCO2 POC ABG pO2 ABG pO2 ABG HCO3 ABG O2 Saturation ABG Base Excess ABG Hemoglobin ABG Oxyhemoglobin ABG Sodium ABG Potassium ABG Chloride ABG Glucose Oxyhemoglobin Carboxyhemoglobin Sodium Potassium Chloride Carbon Dioxide BUN Creatinine Glucose POC Glucose 248 H Lactic Acid Calcium Magnesium Ferritin Total Bilirubin Direct Bilirubin AST ALT Alkaline Phosphatase Lactate Dehydrogenase C-Reactive Protein Total Protein Albumin Triglycerides Lipase Arterial Blood Glucose Arterial Blood Ionized Calcium Urine WBC (Auto) Coronavirus (PCR) SARS-CoV-2 IgG Ab Crossmatch 06/24/20 06/24/20 06/24/20 02:39 02:45 05:31 WBC RBC Hgb Hct MCV MCH MCHC RDW Lymph % (Auto) [place] % (Auto) Lymph # (Auto) [place] # (Auto) Baso # (Auto) Seg Neutrophils % Seg Neuts % (Manual) Lymphocytes % (Manual) Nucleated RBC % Seg Neutrophils # Seg Neutrophils # Man Lymphocytes # (Manual) Monocytes # (Manual) Eosinophils # (Manual) PT INR APTT D-Dimer Heparin Anti-Xa Level ABG pH POC ABG pCO2 66.9 H POC ABG pO2 109.7 H ABG pO2 ABG HCO3 ABG O2 Saturation ABG Base Excess ABG Hemoglobin 9.7 L ABG Oxyhemoglobin ABG Sodium 135.0 L ABG Potassium ABG Chloride 97.0 L ABG Glucose 277 H Oxyhemoglobin Carboxyhemoglobin Sodium 136 L Potassium Chloride 95.0 L Carbon Dioxide 34 H D BUN 24 H Creatinine 0.3 L Glucose 260 H POC Glucose 164 H Lactic Acid Calcium Magnesium Ferritin Total Bilirubin Direct Bilirubin AST ALT Alkaline Phosphatase Lactate Dehydrogenase C-Reactive Protein Total Protein 5.2 L Albumin 2.6 L Triglycerides Lipase Arterial Blood Glucose 277 H Arterial Blood Ionized Calcium Urine WBC (Auto) Coronavirus (PCR) SARS-CoV-2 IgG Ab Crossmatch 06/24/20 06/24/20 06/24/20 10:00 11:49 17:39 WBC RBC Hgb 8.9 L Hct 26.5 L MCV MCH MCHC RDW Lymph % (Auto) [place] % (Auto) Lymph # (Auto) [place] # (Auto) Baso # (Auto) Seg Neutrophils % Seg Neuts % (Manual) Lymphocytes % (Manual) Nucleated RBC % Seg Neutrophils # Seg Neutrophils # Man Lymphocytes # (Manual) Monocytes # (Manual) Eosinophils # (Manual) PT INR APTT D-Dimer Heparin Anti-Xa Level ABG pH POC ABG pCO2 POC ABG pO2 ABG pO2 ABG HCO3 ABG O2 Saturation ABG Base Excess ABG Hemoglobin ABG Oxyhemoglobin ABG Sodium ABG Potassium ABG Chloride ABG Glucose Oxyhemoglobin Carboxyhemoglobin Sodium Potassium Chloride Carbon Dioxide BUN Creatinine Glucose POC Glucose 198 H 223 H Lactic Acid Calcium Magnesium Ferritin Total Bilirubin Direct Bilirubin AST ALT Alkaline Phosphatase Lactate Dehydrogenase C-Reactive Protein Total Protein Albumin Triglycerides Lipase Arterial Blood Glucose Arterial Blood Ionized Calcium Urine WBC (Auto) Coronavirus (PCR) SARS-CoV-2 IgG Ab Crossmatch 06/24/20 06/25/20 06/25/20 23:56 02:16 04:08 WBC RBC Hgb Hct MCV MCH MCHC RDW Lymph % (Auto) [place] % (Auto) Lymph # (Auto) [place] # (Auto) Baso # (Auto) Seg Neutrophils % Seg Neuts % (Manual) Lymphocytes % (Manual) Nucleated RBC % Seg Neutrophils # Seg Neutrophils # Man Lymphocytes # (Manual) Monocytes # (Manual) Eosinophils # (Manual) PT INR APTT D-Dimer Heparin Anti-Xa Level ABG pH 7.454 H POC ABG pCO2 56.9 H POC ABG pO2 61.0 L ABG pO2 ABG HCO3 ABG O2 Saturation ABG Base Excess ABG Hemoglobin ABG Oxyhemoglobin ABG Sodium 134.3 L ABG Potassium ABG Chloride 92.0 L ABG Glucose 246 H Oxyhemoglobin Carboxyhemoglobin Sodium 134 L Potassium Chloride 89.7 L Carbon Dioxide 36 H BUN Creatinine 0.3 L Glucose 254 H POC Glucose 225 H Lactic Acid Calcium Magnesium Ferritin Total Bilirubin Direct Bilirubin AST ALT Alkaline Phosphatase Lactate Dehydrogenase C-Reactive Protein Total Protein Albumin 2.9 L Triglycerides Lipase Arterial Blood Glucose 246 H Arterial Blood Ionized Calcium Urine WBC (Auto) Coronavirus (PCR) SARS-CoV-2 IgG Ab Crossmatch 06/25/20 06/25/20 06/25/20 05:44 11:35 17:33 WBC RBC Hgb Hct MCV MCH MCHC RDW Lymph % (Auto) [place] % (Auto) Lymph # (Auto) [place] # (Auto) Baso # (Auto) Seg Neutrophils % Seg Neuts % (Manual) Lymphocytes % (Manual) Nucleated RBC % Seg Neutrophils # Seg Neutrophils # Man Lymphocytes # (Manual) Monocytes # (Manual) Eosinophils # (Manual) PT INR APTT D-Dimer Heparin Anti-Xa Level ABG pH POC ABG pCO2 POC ABG pO2 ABG pO2 ABG HCO3 ABG O2 Saturation ABG Base Excess ABG Hemoglobin ABG Oxyhemoglobin ABG Sodium ABG Potassium ABG Chloride ABG Glucose Oxyhemoglobin Carboxyhemoglobin Sodium Potassium Chloride Carbon Dioxide BUN Creatinine Glucose POC Glucose 170 H 175 H 229 H Lactic Acid Calcium Magnesium Ferritin Total Bilirubin Direct Bilirubin AST ALT Alkaline Phosphatase Lactate Dehydrogenase C-Reactive Protein Total Protein Albumin Triglycerides Lipase Arterial Blood Glucose Arterial Blood Ionized Calcium Urine WBC (Auto) Coronavirus (PCR) SARS-CoV-2 IgG Ab Crossmatch 06/25/20 06/26/20 06/26/20 23:55 02:17 02:17 WBC RBC Hgb 10.0 L Hct 30.4 L MCV MCH MCHC RDW Lymph % (Auto) [place] % (Auto) Lymph # (Auto) [place] # (Auto) Baso # (Auto) Seg Neutrophils % Seg Neuts % (Manual) Lymphocytes % (Manual) Nucleated RBC % Seg Neutrophils # Seg Neutrophils # Man Lymphocytes # (Manual) Monocytes # (Manual) Eosinophils # (Manual) PT INR APTT D-Dimer Heparin Anti-Xa Level ABG pH POC ABG pCO2 POC ABG pO2 ABG pO2 ABG HCO3 ABG O2 Saturation ABG Base Excess ABG Hemoglobin ABG Oxyhemoglobin ABG Sodium ABG Potassium ABG Chloride ABG Glucose Oxyhemoglobin Carboxyhemoglobin Sodium 136 L Potassium Chloride 90.1 L Carbon Dioxide 39 H BUN Creatinine 0.2 L Glucose 232 H POC Glucose 192 H Lactic Acid Calcium Magnesium Ferritin Total Bilirubin Direct Bilirubin AST ALT Alkaline Phosphatase Lactate Dehydrogenase C-Reactive Protein Total Protein 6.1 L Albumin 2.9 L Triglycerides Lipase Arterial Blood Glucose Arterial Blood Ionized Calcium Urine WBC (Auto) Coronavirus (PCR) SARS-CoV-2 IgG Ab Crossmatch 06/26/20 06/26/20 06/26/20 04:15 04:49 05:28 WBC RBC Hgb Hct MCV MCH MCHC RDW Lymph % (Auto) [place] % (Auto) Lymph # (Auto) [place] # (Auto) Baso # (Auto) Seg Neutrophils % Seg Neuts % (Manual) Lymphocytes % (Manual) Nucleated RBC % Seg Neutrophils # Seg Neutrophils # Man Lymphocytes # (Manual) Monocytes # (Manual) Eosinophils # (Manual) PT INR APTT D-Dimer Heparin Anti-Xa Level ABG pH 7.453 H POC ABG pCO2 59.6 H POC ABG pO2 ABG pO2 ABG HCO3 ABG O2 Saturation ABG Base Excess ABG Hemoglobin 10.0 L ABG Oxyhemoglobin ABG Sodium 134.2 L ABG Potassium 3.3 L ABG Chloride 92.0 L ABG Glucose 305 H Oxyhemoglobin Carboxyhemoglobin Sodium Potassium Chloride Carbon Dioxide BUN Creatinine Glucose POC Glucose 234 H Lactic Acid Calcium Magnesium Ferritin Total Bilirubin Direct Bilirubin AST ALT Alkaline Phosphatase Lactate Dehydrogenase C-Reactive Protein Total Protein Albumin Triglycerides 203 H Lipase Arterial Blood Glucose 305 H Arterial Blood Ionized Calcium Urine WBC (Auto) Coronavirus (PCR) SARS-CoV-2 IgG Ab Crossmatch 06/26/20 06/26/20 06/26/20 11:58 17:58 21:32 WBC RBC Hgb Hct MCV MCH MCHC RDW Lymph % (Auto) [place] % (Auto) Lymph # (Auto) [place] # (Auto) Baso # (Auto) Seg Neutrophils % Seg Neuts % (Manual) Lymphocytes % (Manual) Nucleated RBC % Seg Neutrophils # Seg Neutrophils # Man Lymphocytes # (Manual) Monocytes # (Manual) Eosinophils # (Manual) PT INR APTT D-Dimer Heparin Anti-Xa Level ABG pH POC ABG pCO2 POC ABG pO2 ABG pO2 ABG HCO3 ABG O2 Saturation ABG Base Excess ABG Hemoglobin ABG Oxyhemoglobin ABG Sodium ABG Potassium ABG Chloride ABG Glucose Oxyhemoglobin Carboxyhemoglobin Sodium Potassium Chloride Carbon Dioxide BUN Creatinine Glucose POC Glucose 198 H 193 H 191 H Lactic Acid Calcium Magnesium Ferritin Total Bilirubin Direct Bilirubin AST ALT Alkaline Phosphatase Lactate Dehydrogenase C-Reactive Protein Total Protein Albumin Triglycerides Lipase Arterial Blood Glucose Arterial Blood Ionized Calcium Urine WBC (Auto) Coronavirus (PCR) SARS-CoV-2 IgG Ab Crossmatch 06/26/20 06/27/20 06/27/20 23:40 04:35 05:32 WBC RBC Hgb Hct MCV MCH MCHC RDW Lymph % (Auto) [place] % (Auto) Lymph # (Auto) [place] # (Auto) Baso # (Auto) Seg Neutrophils % Seg Neuts % (Manual) Lymphocytes % (Manual) Nucleated RBC % Seg Neutrophils # Seg Neutrophils # Man Lymphocytes # (Manual) Monocytes # (Manual) Eosinophils # (Manual) PT INR APTT D-Dimer Heparin Anti-Xa Level ABG pH 7.464 H POC ABG pCO2 60.8 H POC ABG pO2 ABG pO2 ABG HCO3 ABG O2 Saturation ABG Base Excess ABG Hemoglobin 10.1 L ABG Oxyhemoglobin ABG Sodium ABG Potassium 2.9 L ABG Chloride 92.0 L ABG Glucose 298 H Oxyhemoglobin Carboxyhemoglobin Sodium Potassium Chloride Carbon Dioxide BUN Creatinine Glucose POC Glucose 241 H 211 H Lactic Acid Calcium Magnesium Ferritin Total Bilirubin Direct Bilirubin AST ALT Alkaline Phosphatase Lactate Dehydrogenase C-Reactive Protein Total Protein Albumin Triglycerides Lipase Arterial Blood Glucose 298 H Arterial Blood Ionized Calcium Urine WBC (Auto) Coronavirus (PCR) SARS-CoV-2 IgG Ab Crossmatch 06/27/20 06/27/20 06/27/20 12:37 18:08 20:52 WBC RBC Hgb Hct MCV MCH MCHC RDW Lymph % (Auto) [place] % (Auto) Lymph # (Auto) [place] # (Auto) Baso # (Auto) Seg Neutrophils % Seg Neuts % (Manual) Lymphocytes % (Manual) Nucleated RBC % Seg Neutrophils # Seg Neutrophils # Man Lymphocytes # (Manual) Monocytes # (Manual) Eosinophils # (Manual) PT INR APTT D-Dimer Heparin Anti-Xa Level ABG pH POC ABG pCO2 POC ABG pO2 ABG pO2 ABG HCO3 ABG O2 Saturation ABG Base Excess ABG Hemoglobin ABG Oxyhemoglobin ABG Sodium ABG Potassium ABG Chloride ABG Glucose Oxyhemoglobin Carboxyhemoglobin Sodium Potassium Chloride Carbon Dioxide BUN Creatinine Glucose POC Glucose 182 H 197 H 195 H Lactic Acid Calcium Magnesium Ferritin Total Bilirubin Direct Bilirubin AST ALT Alkaline Phosphatase Lactate Dehydrogenase C-Reactive Protein Total Protein Albumin Triglycerides Lipase Arterial Blood Glucose Arterial Blood Ionized Calcium Urine WBC (Auto) Coronavirus (PCR) SARS-CoV-2 IgG Ab Crossmatch 06/27/20 06/28/20 06/28/20 Unknown 04:17 04:50 WBC RBC Hgb Hct MCV MCH MCHC RDW Lymph % (Auto) [place] % (Auto) Lymph # (Auto) [place] # (Auto) Baso # (Auto) Seg Neutrophils % Seg Neuts % (Manual) Lymphocytes % (Manual) Nucleated RBC % Seg Neutrophils # Seg Neutrophils # Man Lymphocytes # (Manual) Monocytes # (Manual) Eosinophils # (Manual) PT INR APTT D-Dimer Heparin Anti-Xa Level ABG pH POC ABG pCO2 58.6 H POC ABG pO2 60.1 L ABG pO2 ABG HCO3 ABG O2 Saturation ABG Base Excess ABG Hemoglobin 10.0 L ABG Oxyhemoglobin ABG Sodium 125.3 L ABG Potassium ABG Chloride 93.0 L ABG Glucose 308 H Oxyhemoglobin Carboxyhemoglobin Sodium Potassium 2.9 L* Chloride 93.4 L Carbon Dioxide 42 H* BUN Creatinine 0.3 L Glucose 211 H POC Glucose 252 H Lactic Acid Calcium 8.1 L Magnesium Ferritin Total Bilirubin Direct Bilirubin AST ALT Alkaline Phosphatase Lactate Dehydrogenase C-Reactive Protein Total Protein 5.1 L Albumin 2.4 L Triglycerides Lipase Arterial Blood Glucose 308 H Arterial Blood Ionized Calcium Urine WBC (Auto) Coronavirus (PCR) SARS-CoV-2 IgG Ab Crossmatch 06/28/20 06/28/20 06/28/20 06:35 06:35 11:36 WBC 18.9 H RBC 2.85 L Hgb 9.5 L Hct 28.4 L MCV 100 H MCH 33 H MCHC RDW 17.3 H Lymph % (Auto) [place] % (Auto) Lymph # (Auto) [place] # (Auto) Baso # (Auto) Seg Neutrophils % 88.6 H Seg Neuts % (Manual) 95.0 H Lymphocytes % (Manual) 1.0 L Nucleated RBC % Seg Neutrophils # 15.9 H Seg Neutrophils # Man 18.0 H Lymphocytes # (Manual) 0.2 L Monocytes # (Manual) Eosinophils # (Manual) PT INR APTT D-Dimer Heparin Anti-Xa Level ABG pH POC ABG pCO2 POC ABG pO2 ABG pO2 ABG HCO3 ABG O2 Saturation ABG Base Excess ABG Hemoglobin ABG Oxyhemoglobin ABG Sodium ABG Potassium ABG Chloride ABG Glucose Oxyhemoglobin Carboxyhemoglobin Sodium Potassium Chloride 94.2 L Carbon Dioxide 38 H BUN Creatinine 0.3 L Glucose 228 H POC Glucose 243 H Lactic Acid Calcium Magnesium Ferritin Total Bilirubin Direct Bilirubin AST ALT Alkaline Phosphatase Lactate Dehydrogenase C-Reactive Protein Total Protein 6.1 L Albumin 2.7 L Triglycerides Lipase Arterial Blood Glucose Arterial Blood Ionized Calcium Urine WBC (Auto) Coronavirus (PCR) SARS-CoV-2 IgG Ab Crossmatch 06/28/20 06/28/20 06/29/20 16:53 21:10 00:06 WBC RBC Hgb Hct MCV MCH MCHC RDW Lymph % (Auto) [place] % (Auto) Lymph # (Auto) [place] # (Auto) Baso # (Auto) Seg Neutrophils % Seg Neuts % (Manual) Lymphocytes % (Manual) Nucleated RBC % Seg Neutrophils # Seg Neutrophils # Man Lymphocytes # (Manual) Monocytes # (Manual) Eosinophils # (Manual) PT INR APTT D-Dimer Heparin Anti-Xa Level ABG pH POC ABG pCO2 POC ABG pO2 ABG pO2 ABG HCO3 ABG O2 Saturation ABG Base Excess ABG Hemoglobin ABG Oxyhemoglobin ABG Sodium ABG Potassium ABG Chloride ABG Glucose Oxyhemoglobin Carboxyhemoglobin Sodium Potassium Chloride Carbon Dioxide BUN Creatinine Glucose POC Glucose 211 H 195 H 200 H Lactic Acid Calcium Magnesium Ferritin Total Bilirubin Direct Bilirubin AST ALT Alkaline Phosphatase Lactate Dehydrogenase C-Reactive Protein Total Protein Albumin Triglycerides Lipase Arterial Blood Glucose Arterial Blood Ionized Calcium Urine WBC (Auto) Coronavirus (PCR) SARS-CoV-2 IgG Ab Crossmatch 06/29/20 06/29/20 06/29/20 03:11 04:00 04:00 WBC 18.8 H RBC 2.82 L Hgb 10.1 L Hct 28.5 L MCV 101 H MCH 36 H MCHC 36 H RDW 17.5 H Lymph % (Auto) 10.7 L [place] % (Auto) Lymph # (Auto) [place] # (Auto) 1.0 H Baso # (Auto) 0.3 H Seg Neutrophils % 82.2 H Seg Neuts % (Manual) Lymphocytes % (Manual) Nucleated RBC % Seg Neutrophils # 15.5 H Seg Neutrophils # Man Lymphocytes # (Manual) Monocytes # (Manual) Eosinophils # (Manual) PT INR APTT D-Dimer Heparin Anti-Xa Level ABG pH POC ABG pCO2 57.5 H POC ABG pO2 69.1 L ABG pO2 ABG HCO3 ABG O2 Saturation ABG Base Excess ABG Hemoglobin 10.2 L ABG Oxyhemoglobin 92.3 L ABG Sodium 130.7 L ABG Potassium 3.2 L ABG Chloride 93.0 L ABG Glucose 228 H Oxyhemoglobin Carboxyhemoglobin Sodium 134 L Potassium 3.3 L Chloride 89.5 L Carbon Dioxide 40 H BUN Creatinine 0.2 L Glucose 190 H POC Glucose Lactic Acid Calcium Magnesium Ferritin Total Bilirubin Direct Bilirubin AST < 5 L ALT < 5 L Alkaline Phosphatase Lactate Dehydrogenase C-Reactive Protein Total Protein 5.9 L Albumin 2.2 L Triglycerides Lipase Arterial Blood Glucose 228 H Arterial Blood Ionized Calcium Urine WBC (Auto) Coronavirus (PCR) SARS-CoV-2 IgG Ab Crossmatch 06/29/20 06/29/20 06/29/20 05:00 05:23 09:36 WBC RBC Hgb Hct MCV MCH MCHC RDW Lymph % (Auto) [place] % (Auto) Lymph # (Auto) [place] # (Auto) Baso # (Auto) Seg Neutrophils % Seg Neuts % (Manual) Lymphocytes % (Manual) Nucleated RBC % Seg Neutrophils # Seg Neutrophils # Man Lymphocytes # (Manual) Monocytes # (Manual) Eosinophils # (Manual) PT INR APTT D-Dimer Heparin Anti-Xa Level ABG pH POC ABG pCO2 POC ABG pO2 ABG pO2 ABG HCO3 ABG O2 Saturation ABG Base Excess ABG Hemoglobin ABG Oxyhemoglobin ABG Sodium ABG Potassium ABG Chloride ABG Glucose Oxyhemoglobin Carboxyhemoglobin Sodium Potassium Chloride Carbon Dioxide BUN Creatinine Glucose POC Glucose 165 H Lactic Acid Calcium Magnesium Ferritin Total Bilirubin Direct Bilirubin AST ALT Alkaline Phosphatase Lactate Dehydrogenase C-Reactive Protein Total Protein Albumin Triglycerides 1544 H 1799 H Lipase Arterial Blood Glucose Arterial Blood Ionized Calcium Urine WBC (Auto) Coronavirus (PCR) SARS-CoV-2 IgG Ab Crossmatch 06/29/20 06/29/20 06/29/20 09:36 12:02 18:00 WBC RBC Hgb Hct MCV MCH MCHC RDW Lymph % (Auto) [place] % (Auto) Lymph # (Auto) [place] # (Auto) Baso # (Auto) Seg Neutrophils % Seg Neuts % (Manual) Lymphocytes % (Manual) Nucleated RBC % Seg Neutrophils # Seg Neutrophils # Man Lymphocytes # (Manual) Monocytes # (Manual) Eosinophils # (Manual) PT INR APTT D-Dimer Heparin Anti-Xa Level ABG pH POC ABG pCO2 POC ABG pO2 ABG pO2 ABG HCO3 ABG O2 Saturation ABG Base Excess ABG Hemoglobin ABG Oxyhemoglobin ABG Sodium ABG Potassium ABG Chloride ABG Glucose Oxyhemoglobin Carboxyhemoglobin Sodium Potassium Chloride Carbon Dioxide BUN Creatinine Glucose POC Glucose 197 H 187 H Lactic Acid Calcium Magnesium Ferritin Total Bilirubin Direct Bilirubin AST ALT Alkaline Phosphatase Lactate Dehydrogenase C-Reactive Protein Total Protein Albumin Triglycerides Lipase 86 H Arterial Blood Glucose Arterial Blood Ionized Calcium Urine WBC (Auto) Coronavirus (PCR) SARS-CoV-2 IgG Ab Crossmatch 06/29/20 06/30/20 06/30/20 23:33 03:46 05:50 WBC RBC Hgb Hct MCV MCH MCHC RDW Lymph % (Auto) [place] % (Auto) Lymph # (Auto) [place] # (Auto) Baso # (Auto) Seg Neutrophils % Seg Neuts % (Manual) Lymphocytes % (Manual) Nucleated RBC % Seg Neutrophils # Seg Neutrophils # Man Lymphocytes # (Manual) Monocytes # (Manual) Eosinophils # (Manual) PT INR APTT D-Dimer Heparin Anti-Xa Level ABG pH 7.466 H POC ABG pCO2 57.3 H POC ABG pO2 66.1 L ABG pO2 ABG HCO3 ABG O2 Saturation ABG Base Excess ABG Hemoglobin 10.2 L ABG Oxyhemoglobin 92.3 L ABG Sodium 134.4 L ABG Potassium 3.2 L ABG Chloride 94.0 L ABG Glucose 178 H Oxyhemoglobin Carboxyhemoglobin Sodium Potassium Chloride Carbon Dioxide BUN Creatinine Glucose POC Glucose 170 H 170 H Lactic Acid Calcium Magnesium Ferritin Total Bilirubin Direct Bilirubin AST ALT Alkaline Phosphatase Lactate Dehydrogenase C-Reactive Protein Total Protein Albumin Triglycerides Lipase Arterial Blood Glucose 178 H Arterial Blood Ionized Calcium Urine WBC (Auto) Coronavirus (PCR) SARS-CoV-2 IgG Ab Crossmatch 06/30/20 06/30/20 06/30/20 07:00 07:00 12:04 WBC 15.6 H RBC 2.91 L Hgb 9.8 L Hct 29.7 L MCV 102 H MCH 34 H MCHC RDW 17.8 H Lymph % (Auto) [place] % (Auto) Lymph # (Auto) [place] # (Auto) Baso # (Auto) Seg Neutrophils % Seg Neuts % (Manual) Lymphocytes % (Manual) 5.0 L Nucleated RBC % Seg Neutrophils # Seg Neutrophils # Man 14.8 H Lymphocytes # (Manual) 0.8 L Monocytes # (Manual) Eosinophils # (Manual) PT INR APTT D-Dimer Heparin Anti-Xa Level ABG pH POC ABG pCO2 POC ABG pO2 ABG pO2 ABG HCO3 ABG O2 Saturation ABG Base Excess ABG Hemoglobin ABG Oxyhemoglobin ABG Sodium ABG Potassium ABG Chloride ABG Glucose Oxyhemoglobin Carboxyhemoglobin Sodium Potassium Chloride 93.3 L Carbon Dioxide 43 H* BUN Creatinine 0.3 L Glucose 260 H POC Glucose 245 H Lactic Acid Calcium Magnesium Ferritin Total Bilirubin Direct Bilirubin AST ALT Alkaline Phosphatase Lactate Dehydrogenase C-Reactive Protein Total Protein Albumin 2.8 L Triglycerides 452 H Lipase Arterial Blood Glucose Arterial Blood Ionized Calcium Urine WBC (Auto) Coronavirus (PCR) SARS-CoV-2 IgG Ab Crossmatch 06/30/20 07/01/20 07/01/20 17:32 00:02 05:02 WBC RBC Hgb Hct MCV MCH MCHC RDW Lymph % (Auto) [place] % (Auto) Lymph # (Auto) [place] # (Auto) Baso # (Auto) Seg Neutrophils % Seg Neuts % (Manual) Lymphocytes % (Manual) Nucleated RBC % Seg Neutrophils # Seg Neutrophils # Man Lymphocytes # (Manual) Monocytes # (Manual) Eosinophils # (Manual) PT INR APTT D-Dimer Heparin Anti-Xa Level ABG pH POC ABG pCO2 58.1 H POC ABG pO2 ABG pO2 ABG HCO3 ABG O2 Saturation ABG Base Excess ABG Hemoglobin 11.2 L ABG Oxyhemoglobin ABG Sodium 132.7 L ABG Potassium ABG Chloride 92.0 L ABG Glucose 238 H Oxyhemoglobin Carboxyhemoglobin Sodium Potassium Chloride Carbon Dioxide BUN Creatinine Glucose POC Glucose 209 H 208 H Lactic Acid Calcium Magnesium Ferritin Total Bilirubin Direct Bilirubin AST ALT Alkaline Phosphatase Lactate Dehydrogenase C-Reactive Protein Total Protein Albumin Triglycerides Lipase Arterial Blood Glucose 238 H Arterial Blood Ionized Calcium Urine WBC (Auto) Coronavirus (PCR) SARS-CoV-2 IgG Ab Crossmatch 07/01/20 07/01/20 07/01/20 06:16 06:41 06:41 WBC 18.1 H RBC 2.33 L Hgb 7.1 L Hct 21.3 L D MCV MCH MCHC RDW Lymph % (Auto) [place] % (Auto) Lymph # (Auto) [place] # (Auto) Baso # (Auto) Seg Neutrophils % Seg Neuts % (Manual) 82.0 H Lymphocytes % (Manual) 7.0 L Nucleated RBC % 1.0 H Seg Neutrophils # Seg Neutrophils # Man 14.8 H Lymphocytes # (Manual) Monocytes # (Manual) 1.1 H Eosinophils # (Manual) 0.5 H PT INR APTT D-Dimer Heparin Anti-Xa Level < 0.10 L ABG pH POC ABG pCO2 POC ABG pO2 ABG pO2 ABG HCO3 ABG O2 Saturation ABG Base Excess ABG Hemoglobin ABG Oxyhemoglobin ABG Sodium ABG Potassium ABG Chloride ABG Glucose Oxyhemoglobin Carboxyhemoglobin Sodium Potassium Chloride Carbon Dioxide BUN Creatinine Glucose POC Glucose 180 H Lactic Acid Calcium Magnesium Ferritin Total Bilirubin Direct Bilirubin AST ALT Alkaline Phosphatase Lactate Dehydrogenase C-Reactive Protein Total Protein Albumin Triglycerides Lipase Arterial Blood Glucose Arterial Blood Ionized Calcium Urine WBC (Auto) Coronavirus (PCR) SARS-CoV-2 IgG Ab Crossmatch 07/01/20 07/01/20 07/01/20 08:11 12:04 16:16 WBC RBC Hgb Hct MCV MCH MCHC RDW Lymph % (Auto) [place] % (Auto) Lymph # (Auto) [place] # (Auto) Baso # (Auto) Seg Neutrophils % Seg Neuts % (Manual) Lymphocytes % (Manual) Nucleated RBC % Seg Neutrophils # Seg Neutrophils # Man Lymphocytes # (Manual) Monocytes # (Manual) Eosinophils # (Manual) PT INR APTT D-Dimer Heparin Anti-Xa Level 1.02 H ABG pH POC ABG pCO2 POC ABG pO2 ABG pO2 ABG HCO3 ABG O2 Saturation ABG Base Excess ABG Hemoglobin ABG Oxyhemoglobin ABG Sodium ABG Potassium ABG Chloride ABG Glucose Oxyhemoglobin Carboxyhemoglobin Sodium 135 L Potassium 3.0 L Chloride 93.1 L Carbon Dioxide 40 H BUN Creatinine 0.3 L Glucose 140 H POC Glucose 223 H Lactic Acid Calcium Magnesium Ferritin Total Bilirubin Direct Bilirubin AST ALT Alkaline Phosphatase Lactate Dehydrogenase C-Reactive Protein Total Protein Albumin Triglycerides Lipase Arterial Blood Glucose Arterial Blood Ionized Calcium Urine WBC (Auto) Coronavirus (PCR) SARS-CoV-2 IgG Ab Crossmatch 07/01/20 07/01/20 07/02/20 17:09 23:19 00:56 WBC RBC Hgb Hct MCV MCH MCHC RDW Lymph % (Auto) [place] % (Auto) Lymph # (Auto) [place] # (Auto) Baso # (Auto) Seg Neutrophils % Seg Neuts % (Manual) Lymphocytes % (Manual) Nucleated RBC % Seg Neutrophils # Seg Neutrophils # Man Lymphocytes # (Manual) Monocytes # (Manual) Eosinophils # (Manual) PT INR APTT D-Dimer Heparin Anti-Xa Level 0.22 L ABG pH POC ABG pCO2 POC ABG pO2 ABG pO2 ABG HCO3 ABG O2 Saturation ABG Base Excess ABG Hemoglobin ABG Oxyhemoglobin ABG Sodium ABG Potassium ABG Chloride ABG Glucose Oxyhemoglobin Carboxyhemoglobin Sodium Potassium Chloride Carbon Dioxide BUN Creatinine Glucose POC Glucose 233 H 255 H Lactic Acid Calcium Magnesium Ferritin Total Bilirubin Direct Bilirubin AST ALT Alkaline Phosphatase Lactate Dehydrogenase C-Reactive Protein Total Protein Albumin Triglycerides Lipase Arterial Blood Glucose Arterial Blood Ionized Calcium Urine WBC (Auto) Coronavirus (PCR) SARS-CoV-2 IgG Ab Crossmatch 07/02/20 07/02/20 07/02/20 03:51 05:35 11:39 WBC RBC Hgb Hct MCV MCH MCHC RDW Lymph % (Auto) [place] % (Auto) Lymph # (Auto) [place] # (Auto) Baso # (Auto) Seg Neutrophils % Seg Neuts % (Manual) Lymphocytes % (Manual) Nucleated RBC % Seg Neutrophils # Seg Neutrophils # Man Lymphocytes # (Manual) Monocytes # (Manual) Eosinophils # (Manual) PT INR APTT D-Dimer Heparin Anti-Xa Level ABG pH POC ABG pCO2 54.9 H POC ABG pO2 52.1 L ABG pO2 ABG HCO3 ABG O2 Saturation ABG Base Excess ABG Hemoglobin 11.9 L ABG Oxyhemoglobin 82.8 L ABG Sodium 130.2 L ABG Potassium ABG Chloride 92.0 L ABG Glucose 249 H Oxyhemoglobin Carboxyhemoglobin 1.9 H Sodium Potassium Chloride Carbon Dioxide BUN Creatinine Glucose POC Glucose 205 H 235 H Lactic Acid Calcium Magnesium Ferritin Total Bilirubin Direct Bilirubin AST ALT Alkaline Phosphatase Lactate Dehydrogenase C-Reactive Protein Total Protein Albumin Triglycerides Lipase Arterial Blood Glucose 249 H Arterial Blood Ionized Calcium Urine WBC (Auto) Coronavirus (PCR) SARS-CoV-2 IgG Ab Crossmatch 07/02/20 07/02/20 07/02/20 16:08 16:08 17:54 WBC 19.8 H RBC 3.28 L Hgb 10.7 L D Hct 32.7 L D MCV 100 H MCH 33 H MCHC RDW 17.2 H Lymph % (Auto) [place] % (Auto) Lymph # (Auto) [place] # (Auto) Baso # (Auto) Seg Neutrophils % Seg Neuts % (Manual) Lymphocytes % (Manual) Nucleated RBC % Seg Neutrophils # Seg Neutrophils # Man Lymphocytes # (Manual) Monocytes # (Manual) Eosinophils # (Manual) PT INR APTT D-Dimer Heparin Anti-Xa Level ABG pH POC ABG pCO2 POC ABG pO2 ABG pO2 ABG HCO3 ABG O2 Saturation ABG Base Excess ABG Hemoglobin ABG Oxyhemoglobin ABG Sodium ABG Potassium ABG Chloride ABG Glucose Oxyhemoglobin Carboxyhemoglobin Sodium 136 L Potassium Chloride 92.4 L Carbon Dioxide 35 H BUN Creatinine 0.3 L Glucose 203 H POC Glucose 175 H Lactic Acid Calcium Magnesium Ferritin Total Bilirubin Direct Bilirubin AST ALT Alkaline Phosphatase Lactate Dehydrogenase C-Reactive Protein Total Protein Albumin Triglycerides Lipase Arterial Blood Glucose Arterial Blood Ionized Calcium Urine WBC (Auto) Coronavirus (PCR) SARS-CoV-2 IgG Ab Crossmatch 07/02/20 07/03/20 07/03/20 23:46 03:25 05:54 WBC RBC Hgb Hct MCV MCH MCHC RDW Lymph % (Auto) [place] % (Auto) Lymph # (Auto) [place] # (Auto) Baso # (Auto) Seg Neutrophils % Seg Neuts % (Manual) Lymphocytes % (Manual) Nucleated RBC % Seg Neutrophils # Seg Neutrophils # Man Lymphocytes # (Manual) Monocytes # (Manual) Eosinophils # (Manual) PT INR APTT D-Dimer Heparin Anti-Xa Level ABG pH 7.468 H POC ABG pCO2 51.5 H POC ABG pO2 ABG pO2 ABG HCO3 ABG O2 Saturation ABG Base Excess ABG Hemoglobin ABG Oxyhemoglobin ABG Sodium 130.2 L ABG Potassium ABG Chloride 91.0 L ABG Glucose 210 H Oxyhemoglobin Carboxyhemoglobin 1.6 H Sodium Potassium Chloride Carbon Dioxide BUN Creatinine Glucose POC Glucose 173 H 125 H Lactic Acid Calcium Magnesium Ferritin Total Bilirubin Direct Bilirubin AST ALT Alkaline Phosphatase Lactate Dehydrogenase C-Reactive Protein Total Protein Albumin Triglycerides Lipase Arterial Blood Glucose 210 H Arterial Blood Ionized Calcium Urine WBC (Auto) Coronavirus (PCR) SARS-CoV-2 IgG Ab Crossmatch 07/03/20 07/03/20 07/03/20 11:43 12:20 12:20 WBC 16.5 H RBC 3.13 L Hgb 10.4 L Hct 31.8 L MCV 102 H MCH 33 H MCHC RDW 17.2 H Lymph % (Auto) [place] % (Auto) Lymph # (Auto) [place] # (Auto) Baso # (Auto) Seg Neutrophils % Seg Neuts % (Manual) Lymphocytes % (Manual) Nucleated RBC % Seg Neutrophils # Seg Neutrophils # Man Lymphocytes # (Manual) Monocytes # (Manual) Eosinophils # (Manual) PT INR APTT D-Dimer Heparin Anti-Xa Level ABG pH POC ABG pCO2 POC ABG pO2 ABG pO2 ABG HCO3 ABG O2 Saturation ABG Base Excess ABG Hemoglobin ABG Oxyhemoglobin ABG Sodium ABG Potassium ABG Chloride ABG Glucose Oxyhemoglobin Carboxyhemoglobin Sodium 132 L Potassium Chloride 88.5 L Carbon Dioxide 37 H BUN Creatinine 0.3 L Glucose 230 H POC Glucose 223 H Lactic Acid Calcium Magnesium Ferritin Total Bilirubin Direct Bilirubin AST ALT Alkaline Phosphatase Lactate Dehydrogenase C-Reactive Protein Total Protein Albumin Triglycerides Lipase Arterial Blood Glucose Arterial Blood Ionized Calcium Urine WBC (Auto) Coronavirus (PCR) SARS-CoV-2 IgG Ab Crossmatch 07/03/20 07/03/20 07/04/20 17:24 21:41 00:54 WBC RBC Hgb Hct MCV MCH MCHC RDW Lymph % (Auto) [place] % (Auto) Lymph # (Auto) [place] # (Auto) Baso # (Auto) Seg Neutrophils % Seg Neuts % (Manual) Lymphocytes % (Manual) Nucleated RBC % Seg Neutrophils # Seg Neutrophils # Man Lymphocytes # (Manual) Monocytes # (Manual) Eosinophils # (Manual) PT INR APTT D-Dimer Heparin Anti-Xa Level ABG pH POC ABG pCO2 POC ABG pO2 ABG pO2 ABG HCO3 ABG O2 Saturation ABG Base Excess ABG Hemoglobin ABG Oxyhemoglobin ABG Sodium ABG Potassium ABG Chloride ABG Glucose Oxyhemoglobin Carboxyhemoglobin Sodium Potassium Chloride Carbon Dioxide BUN Creatinine Glucose POC Glucose 163 H 220 H 195 H Lactic Acid Calcium Magnesium Ferritin Total Bilirubin Direct Bilirubin AST ALT Alkaline Phosphatase Lactate Dehydrogenase C-Reactive Protein Total Protein Albumin Triglycerides Lipase Arterial Blood Glucose Arterial Blood Ionized Calcium Urine WBC (Auto) Coronavirus (PCR) SARS-CoV-2 IgG Ab Crossmatch 07/04/20 07/04/20 07/04/20 03:25 04:00 04:00 WBC 14.9 H RBC 2.91 L Hgb 9.5 L Hct 29.2 L MCV 100 H MCH 33 H MCHC RDW 16.7 H Lymph % (Auto) 8.4 L [place] % (Auto) Lymph # (Auto) [place] # (Auto) 1.1 H Baso # (Auto) Seg Neutrophils % 84.2 H Seg Neuts % (Manual) Lymphocytes % (Manual) Nucleated RBC % Seg Neutrophils # 12.6 H Seg Neutrophils # Man Lymphocytes # (Manual) Monocytes # (Manual) Eosinophils # (Manual) PT INR APTT D-Dimer Heparin Anti-Xa Level ABG pH 7.474 H POC ABG pCO2 POC ABG pO2 51.8 L ABG pO2 ABG HCO3 ABG O2 Saturation ABG Base Excess ABG Hemoglobin ABG Oxyhemoglobin ABG Sodium ABG Potassium ABG Chloride ABG Glucose Oxyhemoglobin Carboxyhemoglobin Sodium Potassium 3.4 L Chloride 92.1 L Carbon Dioxide 34 H BUN Creatinine 0.3 L Glucose 173 H POC Glucose Lactic Acid Calcium Magnesium Ferritin Total Bilirubin Direct Bilirubin AST ALT Alkaline Phosphatase Lactate Dehydrogenase C-Reactive Protein Total Protein Albumin Triglycerides Lipase Arterial Blood Glucose Arterial Blood Ionized Calcium Urine WBC (Auto) Coronavirus (PCR) SARS-CoV-2 IgG Ab Crossmatch 07/04/20 07/04/20 07/04/20 06:18 11:39 17:18 WBC RBC Hgb Hct MCV MCH MCHC RDW Lymph % (Auto) [place] % (Auto) Lymph # (Auto) [place] # (Auto) Baso # (Auto) Seg Neutrophils % Seg Neuts % (Manual) Lymphocytes % (Manual) Nucleated RBC % Seg Neutrophils # Seg Neutrophils # Man Lymphocytes # (Manual) Monocytes # (Manual) Eosinophils # (Manual) PT INR APTT D-Dimer Heparin Anti-Xa Level ABG pH POC ABG pCO2 POC ABG pO2 ABG pO2 ABG HCO3 ABG O2 Saturation ABG Base Excess ABG Hemoglobin ABG Oxyhemoglobin ABG Sodium ABG Potassium ABG Chloride ABG Glucose Oxyhemoglobin Carboxyhemoglobin Sodium Potassium Chloride Carbon Dioxide BUN Creatinine Glucose POC Glucose 158 H 257 H 148 H Lactic Acid Calcium Magnesium Ferritin Total Bilirubin Direct Bilirubin AST ALT Alkaline Phosphatase Lactate Dehydrogenase C-Reactive Protein Total Protein Albumin Triglycerides Lipase Arterial Blood Glucose Arterial Blood Ionized Calcium Urine WBC (Auto) Coronavirus (PCR) SARS-CoV-2 IgG Ab Crossmatch 07/04/20 07/05/20 07/05/20 23:23 03:13 05:18 WBC 13.3 H RBC 2.90 L Hgb 9.8 L Hct 29.3 L MCV 101 H MCH 34 H MCHC RDW 17.0 H Lymph % (Auto) 11.1 L [place] % (Auto) Lymph # (Auto) [place] # (Auto) Baso # (Auto) Seg Neutrophils % 82.3 H Seg Neuts % (Manual) Lymphocytes % (Manual) Nucleated RBC % Seg Neutrophils # 10.9 H Seg Neutrophils # Man Lymphocytes # (Manual) Monocytes # (Manual) Eosinophils # (Manual) PT INR APTT D-Dimer Heparin Anti-Xa Level ABG pH 7.48 H POC ABG pCO2 52.0 H POC ABG pO2 ABG pO2 ABG HCO3 ABG O2 Saturation ABG Base Excess ABG Hemoglobin 10.0 L ABG Oxyhemoglobin ABG Sodium 131.0 L ABG Potassium 3.3 L ABG Chloride 93.0 L ABG Glucose 177 H Oxyhemoglobin Carboxyhemoglobin Sodium Potassium Chloride Carbon Dioxide BUN Creatinine Glucose POC Glucose 227 H Lactic Acid Calcium Magnesium Ferritin Total Bilirubin Direct Bilirubin AST ALT Alkaline Phosphatase Lactate Dehydrogenase C-Reactive Protein Total Protein Albumin Triglycerides Lipase Arterial Blood Glucose 177 H Arterial Blood Ionized Calcium Urine WBC (Auto) Coronavirus (PCR) SARS-CoV-2 IgG Ab Crossmatch 07/05/20 07/05/20 07/05/20 05:18 05:25 05:57 WBC RBC Hgb Hct MCV MCH MCHC RDW Lymph % (Auto) [place] % (Auto) Lymph # (Auto) [place] # (Auto) Baso # (Auto) Seg Neutrophils % Seg Neuts % (Manual) Lymphocytes % (Manual) Nucleated RBC % Seg Neutrophils # Seg Neutrophils # Man Lymphocytes # (Manual) Monocytes # (Manual) Eosinophils # (Manual) PT INR APTT D-Dimer Heparin Anti-Xa Level ABG pH 7.519 H POC ABG pCO2 POC ABG pO2 198.6 H ABG pO2 ABG HCO3 ABG O2 Saturation ABG Base Excess ABG Hemoglobin 10.3 L ABG Oxyhemoglobin 98.7 H ABG Sodium 133.6 L ABG Potassium 3.3 L ABG Chloride 93.0 L ABG Glucose 175 H Oxyhemoglobin Carboxyhemoglobin Sodium Potassium 3.4 L Chloride 92.5 L Carbon Dioxide 36 H BUN Creatinine 0.3 L Glucose 148 H POC Glucose 170 H Lactic Acid Calcium Magnesium Ferritin Total Bilirubin Direct Bilirubin AST ALT Alkaline Phosphatase Lactate Dehydrogenase C-Reactive Protein Total Protein Albumin Triglycerides Lipase Arterial Blood Glucose 175 H Arterial Blood Ionized Calcium Urine WBC (Auto) Coronavirus (PCR) SARS-CoV-2 IgG Ab Crossmatch 07/05/20 07/05/20 07/06/20 11:37 18:39 00:04 WBC RBC Hgb Hct MCV MCH MCHC RDW Lymph % (Auto) [place] % (Auto) Lymph # (Auto) [place] # (Auto) Baso # (Auto) Seg Neutrophils % Seg Neuts % (Manual) Lymphocytes % (Manual) Nucleated RBC % Seg Neutrophils # Seg Neutrophils # Man Lymphocytes # (Manual) Monocytes # (Manual) Eosinophils # (Manual) PT INR APTT D-Dimer Heparin Anti-Xa Level ABG pH POC ABG pCO2 POC ABG pO2 ABG pO2 ABG HCO3 ABG O2 Saturation ABG Base Excess ABG Hemoglobin ABG Oxyhemoglobin ABG Sodium ABG Potassium ABG Chloride ABG Glucose Oxyhemoglobin Carboxyhemoglobin Sodium Potassium Chloride Carbon Dioxide BUN Creatinine Glucose POC Glucose 195 H 200 H 222 H Lactic Acid Calcium Magnesium Ferritin Total Bilirubin Direct Bilirubin AST ALT Alkaline Phosphatase Lactate Dehydrogenase C-Reactive Protein Total Protein Albumin Triglycerides Lipase Arterial Blood Glucose Arterial Blood Ionized Calcium Urine WBC (Auto) Coronavirus (PCR) SARS-CoV-2 IgG Ab Crossmatch 07/06/20 07/06/20 07/06/20 05:25 06:52 06:52 WBC 15.8 H RBC 3.17 L Hgb 10.4 L Hct 31.5 L MCV 99 H MCH 33 H MCHC RDW 17.0 H Lymph % (Auto) [place] % (Auto) Lymph # (Auto) [place] # (Auto) Baso # (Auto) Seg Neutrophils % Seg Neuts % (Manual) Lymphocytes % (Manual) Nucleated RBC % Seg Neutrophils # Seg Neutrophils # Man Lymphocytes # (Manual) Monocytes # (Manual) Eosinophils # (Manual) PT INR APTT D-Dimer Heparin Anti-Xa Level ABG pH POC ABG pCO2 POC ABG pO2 ABG pO2 ABG HCO3 ABG O2 Saturation ABG Base Excess ABG Hemoglobin ABG Oxyhemoglobin ABG Sodium ABG Potassium ABG Chloride ABG Glucose Oxyhemoglobin Carboxyhemoglobin Sodium 135 L Potassium 3.4 L Chloride 91.9 L Carbon Dioxide 38 H BUN Creatinine 0.3 L Glucose 189 H POC Glucose 165 H Lactic Acid Calcium Magnesium Ferritin Total Bilirubin Direct Bilirubin AST ALT Alkaline Phosphatase Lactate Dehydrogenase C-Reactive Protein Total Protein Albumin Triglycerides Lipase Arterial Blood Glucose Arterial Blood Ionized Calcium Urine WBC (Auto) Coronavirus (PCR) SARS-CoV-2 IgG Ab Crossmatch 07/06/20 07/06/20 07/06/20 13:01 18:04 23:08 WBC RBC Hgb Hct MCV MCH MCHC RDW Lymph % (Auto) [place] % (Auto) Lymph # (Auto) [place] # (Auto) Baso # (Auto) Seg Neutrophils % Seg Neuts % (Manual) Lymphocytes % (Manual) Nucleated RBC % Seg Neutrophils # Seg Neutrophils # Man Lymphocytes # (Manual) Monocytes # (Manual) Eosinophils # (Manual) PT INR APTT D-Dimer Heparin Anti-Xa Level ABG pH POC ABG pCO2 POC ABG pO2 ABG pO2 ABG HCO3 ABG O2 Saturation ABG Base Excess ABG Hemoglobin ABG Oxyhemoglobin ABG Sodium ABG Potassium ABG Chloride ABG Glucose Oxyhemoglobin Carboxyhemoglobin Sodium Potassium Chloride Carbon Dioxide BUN Creatinine Glucose POC Glucose 195 H 169 H 173 H Lactic Acid Calcium Magnesium Ferritin Total Bilirubin Direct Bilirubin AST ALT Alkaline Phosphatase Lactate Dehydrogenase C-Reactive Protein Total Protein Albumin Triglycerides Lipase Arterial Blood Glucose Arterial Blood Ionized Calcium Urine WBC (Auto) Coronavirus (PCR) SARS-CoV-2 IgG Ab Crossmatch 07/07/20 07/07/20 07/07/20 05:35 05:35 05:39 WBC 17.6 H RBC 3.16 L Hgb 10.4 L Hct 31.5 L MCV 100 H MCH 33 H MCHC RDW 16.7 H Lymph % (Auto) 11.1 L [place] % (Auto) Lymph # (Auto) [place] # (Auto) 1.0 H Baso # (Auto) Seg Neutrophils % 83.0 H Seg Neuts % (Manual) Lymphocytes % (Manual) Nucleated RBC % Seg Neutrophils # 14.6 H Seg Neutrophils # Man Lymphocytes # (Manual) Monocytes # (Manual) Eosinophils # (Manual) PT INR APTT D-Dimer Heparin Anti-Xa Level ABG pH POC ABG pCO2 POC ABG pO2 ABG pO2 ABG HCO3 ABG O2 Saturation ABG Base Excess ABG Hemoglobin ABG Oxyhemoglobin ABG Sodium ABG Potassium ABG Chloride ABG Glucose Oxyhemoglobin Carboxyhemoglobin Sodium 135 L Potassium 3.4 L Chloride 94.3 L Carbon Dioxide 32 H BUN Creatinine 0.2 L Glucose 240 H POC Glucose 191 H Lactic Acid Calcium Magnesium Ferritin Total Bilirubin Direct Bilirubin AST ALT Alkaline Phosphatase Lactate Dehydrogenase C-Reactive Protein Total Protein Albumin Triglycerides Lipase Arterial Blood Glucose Arterial Blood Ionized Calcium Urine WBC (Auto) Coronavirus (PCR) SARS-CoV-2 IgG Ab Crossmatch 07/07/20 07/07/20 07/07/20 12:08 16:39 23:41 WBC RBC Hgb Hct MCV MCH MCHC RDW Lymph % (Auto) [place] % (Auto) Lymph # (Auto) [place] # (Auto) Baso # (Auto) Seg Neutrophils % Seg Neuts % (Manual) Lymphocytes % (Manual) Nucleated RBC % Seg Neutrophils # Seg Neutrophils # Man Lymphocytes # (Manual) Monocytes # (Manual) Eosinophils # (Manual) PT INR APTT D-Dimer Heparin Anti-Xa Level ABG pH POC ABG pCO2 POC ABG pO2 ABG pO2 ABG HCO3 ABG O2 Saturation ABG Base Excess ABG Hemoglobin ABG Oxyhemoglobin ABG Sodium ABG Potassium ABG Chloride ABG Glucose Oxyhemoglobin Carboxyhemoglobin Sodium Potassium Chloride Carbon Dioxide BUN Creatinine Glucose POC Glucose 248 H 209 H 231 H Lactic Acid Calcium Magnesium Ferritin Total Bilirubin Direct Bilirubin AST ALT Alkaline Phosphatase Lactate Dehydrogenase C-Reactive Protein Total Protein Albumin Triglycerides Lipase Arterial Blood Glucose Arterial Blood Ionized Calcium Urine WBC (Auto) Coronavirus (PCR) SARS-CoV-2 IgG Ab Crossmatch 07/08/20 07/08/20 07/08/20 04:58 04:58 05:38 WBC 21.0 H RBC 2.86 L Hgb 9.2 L Hct 28.6 L MCV 100 H MCH MCHC RDW 16.7 H Lymph % (Auto) [place] % (Auto) Lymph # (Auto) [place] # (Auto) Baso # (Auto) Seg Neutrophils % Seg Neuts % (Manual) 93.0 H Lymphocytes % (Manual) 3.0 L Nucleated RBC % Seg Neutrophils # Seg Neutrophils # Man 19.5 H Lymphocytes # (Manual) 0.6 L Monocytes # (Manual) Eosinophils # (Manual) PT INR APTT D-Dimer Heparin Anti-Xa Level ABG pH POC ABG pCO2 POC ABG pO2 ABG pO2 ABG HCO3 ABG O2 Saturation ABG Base Excess ABG Hemoglobin ABG Oxyhemoglobin ABG Sodium ABG Potassium ABG Chloride ABG Glucose Oxyhemoglobin Carboxyhemoglobin Sodium Potassium 3.0 L Chloride Carbon Dioxide BUN Creatinine 0.2 L Glucose 201 H POC Glucose 161 H Lactic Acid Calcium 7.9 L D Magnesium Ferritin Total Bilirubin Direct Bilirubin AST ALT Alkaline Phosphatase Lactate Dehydrogenase C-Reactive Protein Total Protein Albumin Triglycerides Lipase Arterial Blood Glucose Arterial Blood Ionized Calcium Urine WBC (Auto) Coronavirus (PCR) SARS-CoV-2 IgG Ab Crossmatch 07/08/20 07/08/20 07/08/20 12:19 16:26 Unknown WBC RBC Hgb Hct MCV MCH MCHC RDW Lymph % (Auto) [place] % (Auto) Lymph # (Auto) Jim [place] # (Auto) Baso # (Auto) Seg Neutrophils % Seg Neuts % (Manual) Lymphocytes % (Manual) Nucleated RBC % Seg Neutrophils # Seg Neutrophils # Man Lymphocytes # (Manual) Monocytes # (Manual) Eosinophils # (Manual) PT INR APTT D-Dimer Heparin Anti-Xa Level ABG pH POC ABG pCO2 POC ABG pO2 ABG pO2 75.3 L ABG HCO3 34.3 H ABG O2 Saturation ABG Base Excess 8.7 H ABG Hemoglobin 10.2 L ABG Oxyhemoglobin ABG Sodium ABG Potassium ABG Chloride ABG Glucose Oxyhemoglobin 93.7 L Carboxyhemoglobin Sodium Potassium Chloride Carbon Dioxide BUN Creatinine Glucose POC Glucose 152 H 173 H Lactic Acid Calcium Magnesium Ferritin Total Bilirubin Direct Bilirubin AST ALT Alkaline Phosphatase Lactate Dehydrogenase C-Reactive Protein Total Protein Albumin Triglycerides Lipase Arterial Blood Glucose Arterial Blood Ionized Calcium Urine WBC (Auto) Coronavirus (PCR) SARS-CoV-2 IgG Ab Crossmatch 07/09/20 07/09/20 07/09/20 00:01 06:00 11:55 WBC RBC Hgb Hct MCV MCH MCHC RDW Lymph % (Auto) [place] % (Auto) Lymph # (Auto) [place] # (Auto) Baso # (Auto) Seg Neutrophils % Seg Neuts % (Manual) Lymphocytes % (Manual) Nucleated RBC % Seg Neutrophils # Seg Neutrophils # Man Lymphocytes # (Manual) Monocytes # (Manual) Eosinophils # (Manual) PT INR APTT D-Dimer Heparin Anti-Xa Level ABG pH POC ABG pCO2 POC ABG pO2 ABG pO2 ABG HCO3 ABG O2 Saturation ABG Base Excess ABG Hemoglobin ABG Oxyhemoglobin ABG Sodium ABG Potassium ABG Chloride ABG Glucose Oxyhemoglobin Carboxyhemoglobin Sodium Potassium Chloride Carbon Dioxide BUN Creatinine Glucose POC Glucose 207 H 141 H 228 H Lactic Acid Calcium Magnesium Ferritin Total Bilirubin Direct Bilirubin AST ALT Alkaline Phosphatase Lactate Dehydrogenase C-Reactive Protein Total Protein Albumin Triglycerides Lipase Arterial Blood Glucose Arterial Blood Ionized Calcium Urine WBC (Auto) Coronavirus (PCR) SARS-CoV-2 IgG Ab Crossmatch 07/09/20 07/09/20 07/09/20 16:47 23:53 Unknown WBC RBC Hgb Hct MCV MCH MCHC RDW Lymph % (Auto) [place] % (Auto) Lymph # (Auto) [place] # (Auto) Baso # (Auto) Seg Neutrophils % Seg Neuts % (Manual) Lymphocytes % (Manual) Nucleated RBC % Seg Neutrophils # Seg Neutrophils # Man Lymphocytes # (Manual) Monocytes # (Manual) Eosinophils # (Manual) PT INR APTT D-Dimer Heparin Anti-Xa Level ABG pH POC ABG pCO2 POC ABG pO2 ABG pO2 ABG HCO3 ABG O2 Saturation ABG Base Excess ABG Hemoglobin ABG Oxyhemoglobin ABG Sodium ABG Potassium ABG Chloride ABG Glucose Oxyhemoglobin Carboxyhemoglobin Sodium 132 L Potassium Chloride 92.7 L Carbon Dioxide 35 H BUN Creatinine 0.2 L Glucose 234 H POC Glucose 136 H 219 H Lactic Acid Calcium Magnesium Ferritin Total Bilirubin Direct Bilirubin AST ALT Alkaline Phosphatase Lactate Dehydrogenase C-Reactive Protein Total Protein Albumin Triglycerides Lipase Arterial Blood Glucose Arterial Blood Ionized Calcium Urine WBC (Auto) Coronavirus (PCR) SARS-CoV-2 IgG Ab Crossmatch 07/10/20 07/10/20 07/10/20 05:20 12:05 18:38 WBC RBC Hgb Hct MCV MCH MCHC RDW Lymph % (Auto) [place] % (Auto) Lymph # (Auto) [place] # (Auto) Baso # (Auto) Seg Neutrophils % Seg Neuts % (Manual) Lymphocytes % (Manual) Nucleated RBC % Seg Neutrophils # Seg Neutrophils # Man Lymphocytes # (Manual) Monocytes # (Manual) Eosinophils # (Manual) PT INR APTT D-Dimer Heparin Anti-Xa Level ABG pH POC ABG pCO2 POC ABG pO2 ABG pO2 ABG HCO3 ABG O2 Saturation ABG Base Excess ABG Hemoglobin ABG Oxyhemoglobin ABG Sodium ABG Potassium ABG Chloride ABG Glucose Oxyhemoglobin Carboxyhemoglobin Sodium Potassium Chloride Carbon Dioxide BUN Creatinine Glucose POC Glucose 221 H 174 H 152 H Lactic Acid Calcium Magnesium Ferritin Total Bilirubin Direct Bilirubin AST ALT Alkaline Phosphatase Lactate Dehydrogenase C-Reactive Protein Total Protein Albumin Triglycerides Lipase Arterial Blood Glucose Arterial Blood Ionized Calcium Urine WBC (Auto) Coronavirus (PCR) SARS-CoV-2 IgG Ab Crossmatch 07/11/20 07/11/20 07/11/20 00:16 05:42 08:13 WBC 11.9 H RBC 3.13 L Hgb 10.2 L Hct 31.2 L MCV 100 H MCH 33 H MCHC RDW 16.4 H Lymph % (Auto) [place] % (Auto) 9.3 H Lymph # (Auto) [place] # (Auto) 1.1 H Baso # (Auto) Seg Neutrophils % 72.7 H Seg Neuts % (Manual) Lymphocytes % (Manual) Nucleated RBC % Seg Neutrophils # 8.7 H Seg Neutrophils # Man Lymphocytes # (Manual) Monocytes # (Manual) Eosinophils # (Manual) PT INR APTT D-Dimer Heparin Anti-Xa Level ABG pH POC ABG pCO2 POC ABG pO2 ABG pO2 ABG HCO3 ABG O2 Saturation ABG Base Excess ABG Hemoglobin ABG Oxyhemoglobin ABG Sodium ABG Potassium ABG Chloride ABG Glucose Oxyhemoglobin Carboxyhemoglobin Sodium Potassium Chloride Carbon Dioxide BUN Creatinine Glucose POC Glucose 170 H 186 H Lactic Acid Calcium Magnesium Ferritin Total Bilirubin Direct Bilirubin AST ALT Alkaline Phosphatase Lactate Dehydrogenase C-Reactive Protein Total Protein Albumin Triglycerides Lipase Arterial Blood Glucose Arterial Blood Ionized Calcium Urine WBC (Auto) Coronavirus (PCR) SARS-CoV-2 IgG Ab Crossmatch 07/11/20 07/11/20 07/11/20 08:13 11:35 18:07 WBC RBC Hgb Hct MCV MCH MCHC RDW Lymph % (Auto) [place] % (Auto) Lymph # (Auto) [place] # (Auto) Baso # (Auto) Seg Neutrophils % Seg Neuts % (Manual) Lymphocytes % (Manual) Nucleated RBC % Seg Neutrophils # Seg Neutrophils # Man Lymphocytes # (Manual) Monocytes # (Manual) Eosinophils # (Manual) PT INR APTT D-Dimer Heparin Anti-Xa Level ABG pH POC ABG pCO2 POC ABG pO2 ABG pO2 ABG HCO3 ABG O2 Saturation ABG Base Excess ABG Hemoglobin ABG Oxyhemoglobin ABG Sodium ABG Potassium ABG Chloride ABG Glucose Oxyhemoglobin Carboxyhemoglobin Sodium 135 L Potassium Chloride 92.8 L Carbon Dioxide 38 H BUN Creatinine 0.2 L Glucose 132 H POC Glucose 129 H 156 H Lactic Acid Calcium Magnesium Ferritin Total Bilirubin Direct Bilirubin AST ALT Alkaline Phosphatase Lactate Dehydrogenase C-Reactive Protein Total Protein Albumin Triglycerides Lipase Arterial Blood Glucose Arterial Blood Ionized Calcium Urine WBC (Auto) Coronavirus (PCR) SARS-CoV-2 IgG Ab Crossmatch 07/11/20 07/11/20 07/12/20 18:36 23:18 05:28 WBC RBC Hgb Hct MCV MCH MCHC RDW Lymph % (Auto) [place] % (Auto) Lymph # (Auto) [place] # (Auto) Baso # (Auto) Seg Neutrophils % Seg Neuts % (Manual) Lymphocytes % (Manual) Nucleated RBC % Seg Neutrophils # Seg Neutrophils # Man Lymphocytes # (Manual) Monocytes # (Manual) Eosinophils # (Manual) PT INR APTT D-Dimer Heparin Anti-Xa Level ABG pH POC ABG pCO2 POC ABG pO2 70.9 L ABG pO2 ABG HCO3 ABG O2 Saturation ABG Base Excess ABG Hemoglobin 10.8 L ABG Oxyhemoglobin 92.5 L ABG Sodium 131.8 L ABG Potassium 3.2 L ABG Chloride 91.0 L ABG Glucose 181 H Oxyhemoglobin Carboxyhemoglobin Sodium Potassium Chloride Carbon Dioxide BUN Creatinine Glucose POC Glucose 189 H 190 H Lactic Acid Calcium Magnesium Ferritin Total Bilirubin Direct Bilirubin AST ALT Alkaline Phosphatase Lactate Dehydrogenase C-Reactive Protein Total Protein Albumin Triglycerides Lipase Arterial Blood Glucose 181 H Arterial Blood Ionized Calcium Urine WBC (Auto) Coronavirus (PCR) SARS-CoV-2 IgG Ab Crossmatch 07/12/20 07/12/20 07/12/20 11:33 17:45 23:59 WBC RBC Hgb Hct MCV MCH MCHC RDW Lymph % (Auto) [place] % (Auto) Lymph # (Auto) [place] # (Auto) Baso # (Auto) Seg Neutrophils % Seg Neuts % (Manual) Lymphocytes % (Manual) Nucleated RBC % Seg Neutrophils # Seg Neutrophils # Man Lymphocytes # (Manual) Monocytes # (Manual) Eosinophils # (Manual) PT INR APTT D-Dimer Heparin Anti-Xa Level ABG pH POC ABG pCO2 POC ABG pO2 ABG pO2 ABG HCO3 ABG O2 Saturation ABG Base Excess ABG Hemoglobin ABG Oxyhemoglobin ABG Sodium ABG Potassium ABG Chloride ABG Glucose Oxyhemoglobin Carboxyhemoglobin Sodium Potassium Chloride Carbon Dioxide BUN Creatinine Glucose POC Glucose 151 H 211 H 169 H Lactic Acid Calcium Magnesium Ferritin Total Bilirubin Direct Bilirubin AST ALT Alkaline Phosphatase Lactate Dehydrogenase C-Reactive Protein Total Protein Albumin Triglycerides Lipase Arterial Blood Glucose Arterial Blood Ionized Calcium Urine WBC (Auto) Coronavirus (PCR) SARS-CoV-2 IgG Ab Crossmatch 07/13/20 07/13/20 07/13/20 05:44 08:31 08:31 WBC 21.3 H RBC 2.92 L Hgb 9.7 L Hct 28.7 L MCV 98 H MCH 33 H MCHC RDW 16.8 H Lymph % (Auto) [place] % (Auto) Lymph # (Auto) [place] # (Auto) Baso # (Auto) Seg Neutrophils % Seg Neuts % (Manual) 96.0 H Lymphocytes % (Manual) 2.0 L Nucleated RBC % Seg Neutrophils # Seg Neutrophils # Man 20.4 H Lymphocytes # (Manual) 0.4 L Monocytes # (Manual) Eosinophils # (Manual) PT INR APTT D-Dimer Heparin Anti-Xa Level ABG pH POC ABG pCO2 POC ABG pO2 ABG pO2 ABG HCO3 ABG O2 Saturation ABG Base Excess ABG Hemoglobin ABG Oxyhemoglobin ABG Sodium ABG Potassium ABG Chloride ABG Glucose Oxyhemoglobin Carboxyhemoglobin Sodium Potassium 2.9 L* D Chloride 94.4 L Carbon Dioxide 37 H BUN Creatinine 0.2 L Glucose 166 H POC Glucose 122 H Lactic Acid Calcium Magnesium Ferritin Total Bilirubin Direct Bilirubin AST ALT Alkaline Phosphatase Lactate Dehydrogenase C-Reactive Protein Total Protein Albumin Triglycerides Lipase Arterial Blood Glucose Arterial Blood Ionized Calcium Urine WBC (Auto) Coronavirus (PCR) SARS-CoV-2 IgG Ab Crossmatch 07/13/20 07/13/20 07/13/20 11:54 13:52 17:40 WBC RBC Hgb Hct MCV MCH MCHC RDW Lymph % (Auto) [place] % (Auto) Lymph # (Auto) [place] # (Auto) Baso # (Auto) Seg Neutrophils % Seg Neuts % (Manual) Lymphocytes % (Manual) Nucleated RBC % Seg Neutrophils # Seg Neutrophils # Man Lymphocytes # (Manual) Monocytes # (Manual) Eosinophils # (Manual) PT INR APTT D-Dimer Heparin Anti-Xa Level ABG pH 7.477 H POC ABG pCO2 54.4 H POC ABG pO2 126.8 H ABG pO2 ABG HCO3 ABG O2 Saturation ABG Base Excess ABG Hemoglobin 11.5 L ABG Oxyhemoglobin ABG Sodium ABG Potassium 3.2 L ABG Chloride 92.0 L ABG Glucose 169 H Oxyhemoglobin Carboxyhemoglobin Sodium Potassium Chloride Carbon Dioxide BUN Creatinine Glucose POC Glucose 132 H 128 H Lactic Acid Calcium Magnesium Ferritin Total Bilirubin Direct Bilirubin AST ALT Alkaline Phosphatase Lactate Dehydrogenase C-Reactive Protein Total Protein Albumin Triglycerides Lipase Arterial Blood Glucose 169 H Arterial Blood Ionized Calcium Urine WBC (Auto) Coronavirus (PCR) SARS-CoV-2 IgG Ab Crossmatch 07/14/20 07/14/20 07/15/20 07:49 17:09 05:27 WBC RBC Hgb Hct MCV MCH MCHC RDW Lymph % (Auto) [place] % (Auto) Lymph # (Auto) [place] # (Auto) Baso # (Auto) Seg Neutrophils % Seg Neuts % (Manual) Lymphocytes % (Manual) Nucleated RBC % Seg Neutrophils # Seg Neutrophils # Man Lymphocytes # (Manual) Monocytes # (Manual) Eosinophils # (Manual) PT INR APTT D-Dimer Heparin Anti-Xa Level ABG pH POC ABG pCO2 POC ABG pO2 ABG pO2 ABG HCO3 ABG O2 Saturation ABG Base Excess ABG Hemoglobin ABG Oxyhemoglobin ABG Sodium ABG Potassium ABG Chloride ABG Glucose Oxyhemoglobin Carboxyhemoglobin Sodium Potassium 2.7 L* Chloride 94.0 L Carbon Dioxide 37 H BUN Creatinine 0.3 L Glucose 110 H POC Glucose 152 H 61 L Lactic Acid Calcium Magnesium Ferritin Total Bilirubin Direct Bilirubin AST ALT Alkaline Phosphatase Lactate Dehydrogenase C-Reactive Protein Total Protein Albumin Triglycerides Lipase Arterial Blood Glucose Arterial Blood Ionized Calcium Urine WBC (Auto) Coronavirus (PCR) SARS-CoV-2 IgG Ab Crossmatch 07/15/20 07/15/20 07/15/20 05:31 11:49 17:18 WBC RBC Hgb Hct MCV MCH MCHC RDW Lymph % (Auto) [place] % (Auto) Lymph # (Auto) [place] # (Auto) Baso # (Auto) Seg Neutrophils % Seg Neuts % (Manual) Lymphocytes % (Manual) Nucleated RBC % Seg Neutrophils # Seg Neutrophils # Man Lymphocytes # (Manual) Monocytes # (Manual) Eosinophils # (Manual) PT INR APTT D-Dimer Heparin Anti-Xa Level ABG pH POC ABG pCO2 POC ABG pO2 ABG pO2 ABG HCO3 ABG O2 Saturation ABG Base Excess ABG Hemoglobin ABG Oxyhemoglobin ABG Sodium ABG Potassium ABG Chloride ABG Glucose Oxyhemoglobin Carboxyhemoglobin Sodium Potassium 3.2 L Chloride 91.2 L Carbon Dioxide 33 H BUN Creatinine 0.3 L Glucose 139 H POC Glucose 148 H 196 H Lactic Acid Calcium Magnesium Ferritin Total Bilirubin Direct Bilirubin AST ALT Alkaline Phosphatase Lactate Dehydrogenase C-Reactive Protein Total Protein Albumin Triglycerides Lipase Arterial Blood Glucose Arterial Blood Ionized Calcium Urine WBC (Auto) Coronavirus (PCR) SARS-CoV-2 IgG Ab Crossmatch 07/15/20 07/16/20 07/16/20 23:08 05:18 05:19 WBC 11.3 H RBC 3.10 L Hgb 10.0 L Hct 30.3 L MCV 98 H MCH MCHC RDW 16.3 H Lymph % (Auto) [place] % (Auto) Lymph # (Auto) [place] # (Auto) Baso # (Auto) Seg Neutrophils % Seg Neuts % (Manual) Lymphocytes % (Manual) Nucleated RBC % Seg Neutrophils # Seg Neutrophils # Man Lymphocytes # (Manual) Monocytes # (Manual) Eosinophils # (Manual) PT INR APTT D-Dimer Heparin Anti-Xa Level ABG pH POC ABG pCO2 POC ABG pO2 ABG pO2 ABG HCO3 ABG O2 Saturation ABG Base Excess ABG Hemoglobin ABG Oxyhemoglobin ABG Sodium ABG Potassium ABG Chloride ABG Glucose Oxyhemoglobin Carboxyhemoglobin Sodium Potassium Chloride Carbon Dioxide BUN Creatinine Glucose POC Glucose 131 H 160 H Lactic Acid Calcium Magnesium Ferritin Total Bilirubin Direct Bilirubin AST ALT Alkaline Phosphatase Lactate Dehydrogenase C-Reactive Protein Total Protein Albumin Triglycerides Lipase Arterial Blood Glucose Arterial Blood Ionized Calcium Urine WBC (Auto) Coronavirus (PCR) SARS-CoV-2 IgG Ab Crossmatch 07/16/20 07/16/20 07/16/20 05:19 11:45 17:17 WBC RBC Hgb Hct MCV MCH MCHC RDW Lymph % (Auto) [place] % (Auto) Lymph # (Auto) [place] # (Auto) Baso # (Auto) Seg Neutrophils % Seg Neuts % (Manual) Lymphocytes % (Manual) Nucleated RBC % Seg Neutrophils # Seg Neutrophils # Man Lymphocytes # (Manual) Monocytes # (Manual) Eosinophils # (Manual) PT INR APTT D-Dimer Heparin Anti-Xa Level ABG pH POC ABG pCO2 POC ABG pO2 ABG pO2 ABG HCO3 ABG O2 Saturation ABG Base Excess ABG Hemoglobin ABG Oxyhemoglobin ABG Sodium ABG Potassium ABG Chloride ABG Glucose Oxyhemoglobin Carboxyhemoglobin Sodium 132 L Potassium 3.4 L Chloride 89.9 L Carbon Dioxide 39 H BUN Creatinine 0.3 L Glucose 174 H POC Glucose 169 H 143 H Lactic Acid Calcium Magnesium Ferritin Total Bilirubin Direct Bilirubin AST ALT Alkaline Phosphatase Lactate Dehydrogenase C-Reactive Protein Total Protein Albumin Triglycerides Lipase Arterial Blood Glucose Arterial Blood Ionized Calcium Urine WBC (Auto) Coronavirus (PCR) SARS-CoV-2 IgG Ab Crossmatch 07/16/20 07/17/20 07/17/20 23:54 05:32 11:26 WBC RBC Hgb Hct MCV MCH MCHC RDW Lymph % (Auto) [place] % (Auto) Lymph # (Auto) [place] # (Auto) Baso # (Auto) Seg Neutrophils % Seg Neuts % (Manual) Lymphocytes % (Manual) Nucleated RBC % Seg Neutrophils # Seg Neutrophils # Man Lymphocytes # (Manual) Monocytes # (Manual) Eosinophils # (Manual) PT INR APTT D-Dimer Heparin Anti-Xa Level ABG pH POC ABG pCO2 POC ABG pO2 ABG pO2 ABG HCO3 ABG O2 Saturation ABG Base Excess ABG Hemoglobin ABG Oxyhemoglobin ABG Sodium ABG Potassium ABG Chloride ABG Glucose Oxyhemoglobin Carboxyhemoglobin Sodium Potassium Chloride Carbon Dioxide BUN Creatinine Glucose POC Glucose 147 H 149 H 211 H Lactic Acid Calcium Magnesium Ferritin Total Bilirubin Direct Bilirubin AST ALT Alkaline Phosphatase Lactate Dehydrogenase C-Reactive Protein Total Protein Albumin Triglycerides Lipase Arterial Blood Glucose Arterial Blood Ionized Calcium Urine WBC (Auto) Coronavirus (PCR) SARS-CoV-2 IgG Ab Crossmatch 07/17/20 07/17/20 07/18/20 18:16 23:12 06:15 WBC RBC Hgb Hct MCV MCH MCHC RDW Lymph % (Auto) [place] % (Auto) Lymph # (Auto) [place] # (Auto) Baso # (Auto) Seg Neutrophils % Seg Neuts % (Manual) Lymphocytes % (Manual) Nucleated RBC % Seg Neutrophils # Seg Neutrophils # Man Lymphocytes # (Manual) Monocytes # (Manual) Eosinophils # (Manual) PT INR APTT D-Dimer Heparin Anti-Xa Level ABG pH POC ABG pCO2 POC ABG pO2 ABG pO2 ABG HCO3 ABG O2 Saturation ABG Base Excess ABG Hemoglobin ABG Oxyhemoglobin ABG Sodium ABG Potassium ABG Chloride ABG Glucose Oxyhemoglobin Carboxyhemoglobin Sodium Potassium Chloride Carbon Dioxide BUN Creatinine Glucose POC Glucose 161 H 136 H 108 H Lactic Acid Calcium Magnesium Ferritin Total Bilirubin Direct Bilirubin AST ALT Alkaline Phosphatase Lactate Dehydrogenase C-Reactive Protein Total Protein Albumin Triglycerides Lipase Arterial Blood Glucose Arterial Blood Ionized Calcium Urine WBC (Auto) Coronavirus (PCR) SARS-CoV-2 IgG Ab Crossmatch 07/18/20 07/18/20 07/18/20 08:47 08:47 11:50 WBC 17.7 H RBC 3.29 L Hgb 10.5 L Hct 31.8 L MCV 97 H MCH MCHC RDW 16.9 H Lymph % (Auto) [place] % (Auto) 8.6 H Lymph # (Auto) [place] # (Auto) 1.5 H Baso # (Auto) Seg Neutrophils % 74.6 H Seg Neuts % (Manual) Lymphocytes % (Manual) Nucleated RBC % Seg Neutrophils # 13.2 H Seg Neutrophils # Man Lymphocytes # (Manual) Monocytes # (Manual) Eosinophils # (Manual) PT INR APTT D-Dimer Heparin Anti-Xa Level ABG pH POC ABG pCO2 POC ABG pO2 ABG pO2 ABG HCO3 ABG O2 Saturation ABG Base Excess ABG Hemoglobin ABG Oxyhemoglobin ABG Sodium ABG Potassium ABG Chloride ABG Glucose Oxyhemoglobin Carboxyhemoglobin Sodium Potassium 2.8 L* Chloride 92.6 L Carbon Dioxide 40 H BUN Creatinine 0.3 L Glucose 177 H POC Glucose 178 H Lactic Acid Calcium Magnesium Ferritin Total Bilirubin Direct Bilirubin AST ALT Alkaline Phosphatase Lactate Dehydrogenase C-Reactive Protein Total Protein Albumin Triglycerides Lipase Arterial Blood Glucose Arterial Blood Ionized Calcium Urine WBC (Auto) Coronavirus (PCR) SARS-CoV-2 IgG Ab Crossmatch Allied health notes reviewed: nursing
[2020-07-19] MEDS: INSULIN LISPRO 100 UNIT/ML VIAL 3 mL SUB-Q SCH ×4 (01:35→17:38)
[2020-07-19] MEDS: CEFEPIME/NS 2 GM/100 ML 2 GM/100 ML BAG IV SCH ×3 (06:33→21:13)
[2020-07-19] MEDS: MIDODRINE 5 MG TAB PO SCH ×3 (08:46→15:17)
--- NOTE | 2020-07-19 08:52 | XRay Report ---
CHEST 1 VIEW 07/19/2020 7:45 AM INDICATION / CLINICAL INFORMATION: chest tube monitoring. COMPARISON: 07/17/2020 FINDINGS: SUPPORT DEVICES: Right-sided chest tube and nasogastric tube are unchanged HEART / MEDIASTINUM: Unchanged LUNGS / PLEURA: Bilateral pulmonary opacities persist. No pneumothorax. ADDITIONAL FINDINGS: No significant additional findings. IMPRESSION: 1. No significant change. Signer Name: Thierno Joe MD Signed: 07/19/2020 8:48 AM Workstation Name: [id number]
[2020-07-19] MEDS: methylPREDNISolone Sod Succinate 40 MG/1 ML INJ IV SCH (09:01)
[2020-07-19] MEDS: LANSOPRAZOLE 30 MG SOLUTAB FEEDTUBE SCH (09:01)
[2020-07-19] MEDS: ENOXAPARIN 80 MG/0.8 ML INJ SUB-Q SCH ×2 (09:01→21:19)
[2020-07-19] MEDS: FOLIC ACID 1 MG TAB PO SCH (09:01)
[2020-07-19] MEDS: ENOXAPARIN 30 MG/0.3 ML INJ SUB-Q SCH ×2 (09:01→21:19)
[2020-07-19] MEDS: PHENobarbital 32.4 MG TAB PO SCH ×2 (09:01→21:20)
[2020-07-19] MEDS: QUEtiapine 200 MG TAB PO SCH (09:02)
[2020-07-19] MEDS: DOCUSATE SODIUM 100 MG/10 ML ORAL LIQD PO SCH ×2 (09:02→21:18)
[2020-07-19] MEDS: METOPROLOL TARTRATE 25 MG TAB PO SCH ×2 (09:02→21:19)
--- NOTE | 2020-07-19 09:44 | Progress Note ---
Subjective - Reason for Consult Consult date: 07/19/20 Reason for consult: MHE Requesting physician: BLAIR WALLIS - Chief Complaint Chief complaint: ICU Nurse: 1930 Pt. received resting in bed. Awake and responsive. O2 40%/15L in use - saturation = 95-97). Lungs clear but diminished. Found with NGT unsecured and migrating outwards - resecured to nose - patent with Vital HP @ 65mls per hour in progress. H2o 100mls Q4H. No gastric residual noted. Right chest tube intact to wall suction draining serosanguenous drainage. Condom cath to BSD camilo color urine. Right AC and right forearm INT's intact and patent without s/s of infiltration at sites. No acute distress noted. Will continue to monitor. Psych Progress Patient seen in room today, appears calm and less distressed, still on vents. States own full name correctly, did not say laquita and able to correctly know reason he is in hospital, states he has breathing difficulty. MENTAL STATUS EXAMINATION General Appearance and Behavior: Age appropriate, good hygiene, wearing appropriate clothes, cooperative polite with questioning. Cooperation: Withdrawn Psychomotor Behavior: Psychomotor agitation Mood: N/A Affect and affective range: Flat Thought Process: Tangential Thought Content: Paranoid and confused Speech: Low volume, Regular rate and rhythm, Intellectual Functioning: Poor Suicidal Ideation: N/A Homicidal Ideation: N/A Impulse Control: Unimpaired Insight and Judgment: Impaired Memory: memory impaired Attention:Distractible, Assessment and Plan - Psychiatric problem (1) Delirium due to another medical condition Current Visit: Yes Status: Acute F05 Treatment Continue current medications Started on olanzapine 2.5 nightly, increased to 5mg. Seroquel changed to 200 mg every morning MEDICATIONS: Risks, benefits and alternatives of medications discussed with the patient, questions answered and consent obtained from patient. PSYCHOTHERAPY: Supportive psychotherapy provided MEDICAL: Per primary team DELIRIUM PRECAUTIONS: Please re-orient patient frequently, keep lights on during the day, and minimize benzodiazepines and opiates as these medications could worsen patient's confusion. TRADE MARK EXAMINER: DISPOSITION: Do Not Recommend acute inpatient psychiatric hospitalization at this time but patient will be followed. Case discussed with Dr. Foster who agrees with current disposition FOLLOW-UP: Will follow Thank you for the consult. Please contact with any questions and/or concerns. Mental Status Exam - Vital signs Last Vital Signs Temp 99.2 F 07/19/20 04:00 Pulse 119 H 07/19/20 09:02 Resp 31 H 07/19/20 07:00 BP 102/64 07/19/20 09:02 Pulse Ox 99 07/19/20 07:00 Assessment and Plan - Patient Problems (1) Delirium due to another medical condition Current Visit: Yes Status: Acute
--- NOTE | 2020-07-19 09:59 | Progress Note ---
Assessment and Plan Assessment and plan: 50 YO Male with Obesity, ETOH Dependence presents to ED for evaluation. Patient states that he has experienced shortness of breath, generalized weakness, fatigue, malaise, body aches, decreased exercise tolerance over the past 5 days with persistently worsening symptoms over the same timeframe. EMS was notified and upon arrival the patient was found to be in distress with a pulse oximetry of 76% on room air as well as fever to 103 F. Patient was placed on supplemental oxygen and subsequently transported to [facility] for further care and evaluation. Patient seen and evaluated in the emergency department. All lab and imaging studies reviewed. Patient underwent chest x-ray and was found to have bilateral pneumonia. Patient also found to have a pulse oximetry of 86% on 4 L nasal cannula. Patient initiated on a high flow submental oxygen with improvement of pulse oximetry. Patient admitted to medical floor and initiated on pneumonia protocol as well as COVID-19 protocol. Patient also found to have acute kidney injury as well as elevated liver function test suspected secondary to alcohol dependence. Patient denies chills, chest pain, palpitations, skin rash, recent ill contacts. Patient reports being diagnosed with coronavirus 2 days ago. No prior admission for review. No medication listed at time of admission for reconciliation. -Pneumothorax status post chest tube Sinus tachycardia Acute hypoxemic respiratory failure; Patient intubated and on vent support --Severe COVID-19 bilateral pneumonia Coronavirus protocol: IV steroid therapy, completed remdesivir, isolation pr ecautions, contact precautions, prone positioning while in bed, pulmonary toilet. ID following SARS CoV-2 IgG positive patient is NOT a candidate for COVID convalescent plasma --Severe sepsis/septic shock, due to COVID 19 PNA cont pressors as needed -- Acute kidney injury (SEN) , likely vasomotor nephropathy Resolved, IV fluids, avoid nephrotoxins --Acute on chronic anemia Guaiac test positive GI evaluation PPIs Continue to monitor -- Elevated liver function tests Suspected secondary to alcoholic liver disease. Supportive care, alcohol cessation, patient counseled. --Colonic distention GI evaluation -recommend stool softeners Serial abdominal x-rays Monitor electrolytes and replete -- DVT prophylaxis On therapeutic Lovenox 50 YO Male with Obesity, ETOH Dependence presents to ED for evaluation for shortness of breath, generalized weakness, fatigue, malaise, body aches, decreased exercise tolerance over the past 5 days. EMS was notified and upon arrival the patient was found to be in distress with a pulse oximetry of 76% on room air as well as fever to 103 F. In the ER chest x-ray and was found to have bilateral pneumonia. Patient admitted to medical floor and initiated on pneumonia protocol as well as COVID-19 protocol. Patient reports being diagnosed with coronavirus 2 days ago before admission. 06/16/2020. Patient currently on mechanical ventilation with AC mode rate 30, tidal volume 500, FiO2 70% and PEEP of 16. Continue anticoagulation with Lovenox 110 milligrams subcu every 12 hours. Wean sedation of fentanyl/Versed as needed. Currently with IV steroids of Solu-Medrol 40 mg IV every 12 hours. Patient will likely need tracheostomy per pulmonary recommendations. Continue pressors to maintain MAP > 65. 06/17/2020. Patient currently on mechanical ventilation with AC mode rate 30, tidal volume 500, FiO2 65% and PEEP of 16. Continue anticoagulation with Lovenox 110 milligrams subcu every 12 hours. Wean sedation of fentanyl/Versed as needed. Currently with IV steroids of Solu-Medrol 40 mg IV every 12 hours. Patient will likely need tracheostomy per pulmonary recommendations. 06/18/2020. Patient currently on mechanical ventilation with AC mode rate 30, tidal volume 500, FiO2 70% and PEEP of 16. Continue Lovenox for anticoagulation and fentanyl/Versed for sedation. Wean steroids per pulmonary. CIWA protocol initiated for history of EtOH dependence 06/19/2020. Patient currently on mechanical ventilation with AC mode rate 30, tidal volume 500, FiO2 60% and PEEP of 16. Wean FiO2 as tolerated per protocol. Continue Lovenox for anticoagulation and fentanyl/Versed for sedation. Wean steroids per pulmonary. CIWA protocol initiated for history of EtOH dependence 06/20/2020. Patient currently on mechanical ventilation with AC mode rate 30, tidal volume 500, FiO2 60% and PEEP of 16. Wean FiO2 as tolerated, SBT per protocol. Continue Lovenox for anticoagulation and fentanyl/Versed for sedation. Wean steroids per pulmonary. Continue pressors to maintain MAP > 65 mmHg. Patient remains on ETT. Consider tracheostomy placement once oxygenation is better per pulmonary. CIWA protocol initiated for history of EtOH dependence. 06/21/2020. Patient with a small apical pneumothorax discovered yesterday. General surgery consulted and consider placing chest tube. Follow-up serial chest x-ray patient currently on mechanical ventilation with AC mode rate 30, tidal volume 500, FiO2 60% and PEEP of 16. Wean FiO2 as tolerated, SBT per pr otocol. Continue Lovenox for anticoagulation and fentanyl/Versed for sedation. Wean steroids per pulmonary. Continue pressors to maintain MAP > 65 mmHg. Patient remains on ETT. Consider tracheostomy placement once oxygenation is better per pulmonary. CIWA protocol initiated for history of EtOH dependence. 06/22. Status post right chest tube placement yesterday. Remains mechanically ventilated on pressors. Examination today shows slightly distended abdomen. KUB ordered. Awaiting stool guaiac. Plan to get a GI evaluation. 06/23. Has colonic distention on the x-ray. Discussed with GI-advised stool softeners for now and close monitoring. No indication for colonic decompression at this time. Guaiac test is positive. No emergent indication for endoscopy at this point as per GI. Continue to monitor hemoglobin. 06/24. Remains intubated. On pressors. GI following for positive guaiac stool and anemia, and colonic distention. 06/25. Repeat abdominal xray ordered. Remains on mechanical ventilation. 06/26. Abdominal xray - resolved colonic distension. Mechanically ventilated. 06/27. Plan for trach and PEG. 06/28: Awaiting trach and Peg. S\ome Bm REPORTED, will continue to monitor 06/29: Resume care, patient remains on ventilator support, waiting on trach and PEG placement. BM reported by the RN, continue to monitor. 06/30: Unable to wean off from vent, patient will need trach and PEG. Continue supportive care, tolerating tube feed. Monitor CBC and BMP 07/01: Continue mechanical ventilation, tube feeding as tolerated. Sedation as needed per mechanical ventilation protocol. Waiting on trach and PEG placement. 07/02: Continue current management, tube feeding, monitor CBC and BMP. Need trach and PEG-waiting on scheduling. Pulmonary critical care following. 07/03: wean off vent as tolerated. follow clinically. need trach and PEG 07/04: unable to wean. CT head ordered to assess for any changes but too unstable to do the test. need trach and PEG. 07/05: plan for trach/peg - GS following. off pressor - on midodrine. renal f unction stable. intubated, but alert and can follow minor commend. discussed with daughter by phone. 07/06/2020; Dr. Márquez discussed with patient's daughter about trach but the daughter needs time to think about it. Patient was intubated and alert, FiO2 40%. 07/07/2020; patient was intubated and alert, FiO2 40%. Patient was diaphoretic, tachycardic, and EKG was done which was abnormal for me. I called home demonstrator Dr Louis saw the EKG and said it is normal EKG, and the findings are abnormal. 07/08/2020; no significant change, patient is intubated and alert. 12: Patient continues on current management. Pulmonary recommending trach and PEG awaiting patient's decision on this. Will check intermittent labs 07/11: Ordered CT still pending. Patient was agitated at night. Appears to have calmed down. Will repeat labs today. 07/12: Continue supportive care, awaiting CPAP trial. discussed with pulmonary. Obtain labs today. Trach and Peg planned 07/13: Continues to current management, PLAN FOR Trach and PEG on Sunday if patient is not able to liberated from the ventilator, Continue to monitor Fever curve and repeat Sepsis work up if persistent fever 07/14: Now extubated, continue to work up. 07/15: Clinical stable for transfer to [facility], still with fever and now showing bactermia. Continue Abx per ID. monitor fever 07/16: Continue supportive care. MONITOR FEVER CURVE, Adjust antibiotics as tolerated 07/17: Chest tube remains in place. More lethargic, Requested BIPAP to bedside, Ch est tube to be discontinued, Awaiting Pysch input. 07/18: Chest tube remains in place repeat chest x-ray shows persistent bilateral opacity with mild improvement. Continue nebulizer treatments. Hypokalemia also noted will replace. Pulmonary and surgical input noted 07/19: Patient is a 50-year-old male admitted with shortness of breath ended up on mechanical ventilation noted to have pneumothorax has a chest tube in place. Has been successfully extubated but remains with delirium secondary to medical condition and also mild to moderate respiratory distress on Venturi mask. Continue weaning attempts. Patient still with chest tube. Continue serial x- rays. Will discuss with case management about possible LTAC placement. Blood cultures are currently returning Pseudomonas species. ID is following. The high probability of a clinically significant, sudden or life threatening deterioration of the [respiratory] system(s) required my full and direct attention, intervention and personal management. The aggregate critical care time was [31] minutes. This time is in addition to time spent performing reported procedures but includes the following: [x] Data Review and interpretation [x] Patient assessment and monitoring of vital signs [x] Documentation [x] Medication orders and management History Interval history: Pt seen and examined, STILL ON venturi mask Hospitalist Physical - Physical exam Narrative exam: VITAL SIGNS: Reviewed. Exam limited due to global pandemic PPE GENERAL: AWAKE, FOLLOWS COMMAND HEAD: No signs of head trauma. MOUTH: Oropharynx is normal. NECK: No adenopathy, no JVD. CHEST: increase respiration. Chest with diminished breath sounds bilaterally. No wheezes, rales, or rhonchi. CARDIAC: normal S1 and S2, without murmurs, gallops, or rubs. ABDOMEN: Slightly distended, bowel sounds hypoactive NEUROLOGICAL EXAM: DROWSY BUT AWAKE AND FOLLOWING SOME COMMANDS BUT CONFUSION PERSIST - Constitutional Vitals: Temp Pulse Resp BP Pulse Ox 99.2 F 119 H 31 H 102/64 99 07/19/20 04:00 07/19/20 09:02 07/19/20 07:00 07/19/20 09:02 07/19/20 07:00 General appearance: Present: no acute distress, mild distress, well-nourished HEART Score - HEART Score Troponin: Troponin T 0.015 ng/mL (0.00-0.029) 07/07/20 10:00 Results - Labs CBC & Chem 7: 07/18/20 08:47 07/18/20 08:47 Labs: Laboratory Last Values WBC 17.7 K/mm3 (4.5-11.0) H 07/18/20 08:47 RBC 3.29 M/mm3 (3.65-5.03) L 07/18/20 08:47 Hgb 10.5 gm/dl (11.8-15.2) L 07/18/20 08:47 Hct 31.8 % (35.5-45.6) L 07/18/20 08:47 MCV 97 fl (84-94) H 07/18/20 08:47 MCH 32 pg (28-32) 07/18/20 08:47 MCHC 33 % (32-34) 07/18/20 08:47 RDW 16.9 % (13.2-15.2) H 07/18/20 08:47 Plt Count 374 K/mm3 (140-440) 07/18/20 08:47 Lymph % (Auto) 15.0 % (13.4-35.0) 07/18/20 08:47 Cook % (Auto) 8.6 % (0.0-7.3) H 07/18/20 08:47 Eos % (Auto) 1.5 % (0.0-4.3) 07/18/20 08:47 Baso % (Auto) 0.3 % (0.0-1.8) 07/18/20 08:47 Lymph # (Auto) 2.6 K/mm3 (1.2-5.4) 07/18/20 08:47 Cook # (Auto) 1.5 K/mm3 (0.0-0.8) H 07/18/20 08:47 Eos # (Auto) 0.3 K/mm3 (0.0-0.4) 07/18/20 08:47 Baso # (Auto) 0.0 K/mm3 (0.0-0.1) 07/18/20 08:47 Add Manual Diff Complete 07/13/20 08:31 Total Counted 100 07/13/20 08:31 Seg Neutrophils % 74.6 % (40.0-70.0) H 07/18/20 08:47 Seg Neuts % (Manual) 96.0 % (40.0-70.0) H 07/13/20 08:31 Band Neutrophils % 0 % 07/13/20 08:31 Lymphocytes % (Manual) 2.0 % (13.4-35.0) L 07/13/20 08:31 Reactive Lymphs % (Man) 0 % 07/13/20 08:31 Monocytes % (Manual) 2.0 % (0.0-7.3) 07/13/20 08:31 Eosinophils % (Manual) 0 % (0.0-4.3) 07/13/20 08:31 Basophils % (Manual) 0 % (0.0-1.8) 07/13/20 08:31 Metamyelocytes % 0 % 07/13/20 08:31 Myelocytes % 0 % 07/13/20 08:31 Promyelocytes % 0 % 07/13/20 08:31 Blast Cells % 0 % 07/13/20 08:31 Nucleated RBC % Not Reportable 07/13/20 08:31 Seg Neutrophils # 13.2 K/mm3 (1.8-7.7) H 07/18/20 08:47 Seg Neutrophils # Man 20.4 K/mm3 (1.8-7.7) H 07/13/20 08:31 Band Neutrophils # 0.0 K/mm3 07/13/20 08:31 Lymphocytes # (Manual) 0.4 K/mm3 (1.2-5.4) L 07/13/20 08:31 Abs React Lymphs (Man) 0.0 K/mm3 07/13/20 08:31 Monocytes # (Manual) 0.4 K/mm3 (0.0-0.8) 07/13/20 08:31 Eosinophils # (Manual) 0.0 K/mm3 (0.0-0.4) 07/13/20 08:31 Basophils # (Manual) 0.0 K/mm3 (0.0-0.1) 07/13/20 08:31 Metamyelocytes # 0.0 K/mm3 07/13/20 08:31 Myelocytes # 0.0 K/mm3 07/13/20 08:31 Promyelocytes # 0.0 K/mm3 07/13/20 08:31 Blast Cells # 0.0 K/mm3 07/13/20 08:31 WBC Morphology Not Reportable 07/13/20 08:31 Hypersegmented Neuts Not Reportable 07/13/20 08:31 Hyposegmented Neuts Not Reportable 07/13/20 08:31 Hypogranular Neuts Not Reportable 07/13/20 08:31 Smudge Cells Not Reportable 07/13/20 08:31 Toxic Granulation Not Reportable 07/13/20 08:31 Toxic Vacuolation Not Reportable 07/13/20 08:31 Dohle Bodies Not Reportable 07/13/20 08:31 Pelger-Huet Anomaly Not Reportable 07/13/20 08:31 Jason Rods Not Reportable 07/13/20 08:31 Platelet Estimate Consistent w auto 07/13/20 08:31 Clumped Platelets Not Reportable 07/13/20 08:31 Plt Clumps, EDTA Not Reportable 07/13/20 08:31 Large Platelets Not Reportable 07/13/20 08:31 Giant Platelets Not Reportable 07/13/20 08:31 Platelet Satelliting Not Reportable 07/13/20 08:31 Plt Morphology Comment Not Reportable 07/13/20 08:31 RBC Morphology Not Reportable 07/13/20 08:31 Dimorphic RBCs Not Reportable 07/13/20 08:31 Polychromasia Not Reportable 07/13/20 08:31 Hypochromasia Not Reportable 07/13/20 08:31 Poikilocytosis Not Reportable 07/13/20 08:31 Anisocytosis Not Reportable 07/13/20 08:31 Microcytosis Not Reportable 07/13/20 08:31 Macrocytosis Not Reportable 07/13/20 08:31 Spherocytes Not Reportable 07/13/20 08:31 Pappenheimer Bodies Not Reportable 07/13/20 08:31 Sickle Cells Not Reportable 07/13/20 08:31 Target Cells Not Reportable 07/13/20 08:31 Tear Drop Cells Not Reportable 07/13/20 08:31 Ovalocytes Not Reportable 07/13/20 08:31 Stomatocytes Few 07/13/20 08:31 Helmet Cells Not Reportable 07/13/20 08:31 [place] Bodies Not Reportable 07/13/20 08:31 [place] Rings Not Reportable 07/13/20 08:31 Izabella Cells Not Reportable 07/13/20 08:31 Bite Cells Not Reportable 07/13/20 08:31 Crenated Cell Not Reportable 07/13/20 08:31 Elliptocytes Not Reportable 07/13/20 08:31 Acanthocytes (Spur) Not Reportable 07/13/20 08:31 Rouleaux Not Reportable 07/13/20 08:31 Hemoglobin C Crystals Not Reportable 07/13/20 08:31 Schistocytes Not Reportable 07/13/20 08:31 Malaria parasites Not Reportable 07/13/20 08:31 Josue Bodies Not Reportable 07/13/20 08:31 Hem Pathologist Commnt No 07/13/20 08:31 PT 11.8 Sec. (12.2-14.9) L 06/22/20 14:29 INR 0.88 (0.87-1.13) 06/22/20 14:29 APTT 23.5 Sec. (24.2-36.6) L 06/22/20 14:29 D-Dimer 1887.82 ng/mlDDU (0-234) H 05/20/20 08:16 Heparin Anti-Xa Level 0.37 U.I./ml (0.3-0.7) 07/02/20 16:08 ABG pH 7.477 (7.320-7.450) H 07/13/20 13:52 POC ABG pCO2 54.4 mmHg (32.0-48.0) H 07/13/20 13:52 ABG pCO2 53.1 mm Hg 07/08/20 Unknown POC ABG pO2 126.8 mmHg (83-108) H 07/13/20 13:52 ABG pO2 75.3 mm Hg (80.0-90.0) L 07/08/20 Unknown POC ABG HCO3 39.3 07/13/20 13:52 ABG HCO3 34.3 mmol/L (20.0-26.0) H 07/08/20 Unknown ABG O2 Saturation 96.5 % (95.0-99.0) 07/08/20 Unknown ABG O2 Content 13.5 (0.0-44) 07/08/20 Unknown POC ABG Base Excess 13.8 07/13/20 13:52 ABG Base Excess 8.7 mmol/L (-2.0-3.0) H 07/08/20 Unknown ABG Hemoglobin 11.5 (12.0-17.5) L 07/13/20 13:52 ABG Oxyhemoglobin 97.7 (94-98) 07/13/20 13:52 ABG Carboxyhemoglobin 2.4 % (0.0-5.0) 07/08/20 Unknown ABG Methemoglobin 0 (0.0-1.5) 07/13/20 13:52 ABG Sodium 136.2 mmol/L (136.0-145.0) 07/13/20 13:52 ABG Potassium 3.2 mmol/L (3.40-4.50) L 07/13/20 13:52 ABG Chloride 92.0 mmol/L (98-107) L 07/13/20 13:52 ABG Glucose 169 mg/dL (65-95) H 07/13/20 13:52 Oxyhemoglobin 93.7 % (95.0-99.0) L 07/08/20 Unknown Carboxyhemoglobin 1.2 (0.5-1.5) 07/13/20 13:52 FiO2 45 07/13/20 13:52 Sodium 138 mmol/L (137-145) 07/18/20 08:47 Potassium 2.8 mmol/L (3.6-5.0) L* 07/18/20 08:47 Chloride 92.6 mmol/L (98-107) L 07/18/20 08:47 Carbon Dioxide 40 mmol/L (22-30) H 07/18/20 08:47 Anion Gap 8 mmol/L 07/18/20 08:47 BUN 11 mg/dL (9-20) 07/18/20 08:47 Creatinine 0.3 mg/dL (0.8-1.3) L 07/18/20 08:47 Estimated GFR > 60 ml/min 07/18/20 08:47 BUN/Creatinine Ratio 37 % 07/18/20 08:47 Glucose 177 mg/dL (75-100) H 07/18/20 08:47 POC Glucose 166 mg/dL (70-105) H 07/19/20 05:22 Lactic Acid 0.80 mmol/L (0.7-2.0) 07/13/20 15:45 Calcium 9.7 mg/dL (8.4-10.2) 07/18/20 08:47 Phosphorus 3.10 mg/dL (2.5-4.5) 06/15/20 04:00 Magnesium 1.80 mg/dL (1.7-2.3) 07/14/20 07:49 Ferritin 1496.0 ng/mL (30.0-300.0) H 06/14/20 11:50 Total Bilirubin 0.60 mg/dL (0.1-1.2) 06/30/20 07:00 Direct Bilirubin 0.6 mg/dL (0-0.2) H 05/11/20 07:30 Indirect Bilirubin 0.9 mg/dL 05/11/20 07:30 AST 21 units/L (5-40) 06/30/20 07:00 ALT 30 units/L (7-56) 06/30/20 07:00 Alkaline Phosphatase 81 units/L (35-129) 06/30/20 07:00 Lactate Dehydrogenase 705 units/L (91-180) H 05/20/20 08:16 Troponin T 0.015 ng/mL (0.00-0.029) 07/07/20 10:00 C-Reactive Protein 3.10 mg/dL (0.00-1.30) H 05/20/20 08:16 Total Protein 6.3 g/dL (6.3-8.2) 06/30/20 07:00 Albumin 2.8 g/dL (3.9-5) L 06/30/20 07:00 Albumin/Globulin Ratio 0.8 % 06/30/20 07:00 Triglycerides 452 mg/dL (2-149) H 06/30/20 07:00 Lipase 86 units/L (13-60) H 06/29/20 09:36 Procalcitonin 2.15 ng/mL (<0.15) 07/15/20 05:31 Arterial Blood Glucose 169 mg/dL (65-95) H 07/13/20 13:52 Arterial Blood Ionized Calcium 4.8 mg/dL (4.6-5.3) 07/13/20 13:52 Urine Color Fauzia (Yellow) 05/10/20 Unknown Urine Turbidity Clear (Clear) 05/10/20 Unknown Urine pH 5.0 (5.0-7.0) 05/10/20 Unknown Ur Specific [place] 1.019 (1.003-1.030) 05/10/20 Unknown Urine Protein 100 mg/dl mg/dL (Negative) 05/10/20 Unknown Urine Glucose (UA) Neg mg/dL (Negative) 05/10/20 Unknown Urine Ketones Neg mg/dL (Negative) 05/10/20 Unknown Urine Blood Lg (Negative) 05/10/20 Unknown Urine Nitrite Neg (Negative) 05/10/20 Unknown Urine Bilirubin Neg (Negative) 05/10/20 Unknown Urine Urobilinogen 2.0 mg/dL (<2.0) 05/10/20 Unknown Ur Leukocyte Esterase Neg (Negative) 05/10/20 Unknown Urine WBC (Auto) 11.0 /HPF (0.0-6.0) H 05/10/20 Unknown Urine RBC (Auto) 2.0 /HPF (0.0-6.0) 05/10/20 Unknown U Epithel Cells (Auto) 1.0 /HPF (0-13.0) 05/10/20 Unknown Urine Bacteria (Auto) 1+ /HPF (Negative) 05/10/20 Unknown Urine Mucus Few /HPF 05/10/20 Unknown Plasma/Serum Alcohol < 0.01 % (0-0.07) 05/09/20 14:20 Coronavirus (PCR) Negative (Negative) 06/30/20 10:28 Hepatitis A Ab Total Nonreactive (Nonreactive) 07/09/20 Unknown Hep B Core Total Ab Nonreactive (Nonreactive) 07/09/20 Unknown Hepatitis C RNA Quant See scanned result 07/09/20 Unknown SARS-CoV-2 IgG Ab Reactive (NonReactive) A 05/11/20 07:30 Blood Type B POSITIVE 06/21/20 14:18 Antibody Screen Negative 06/21/20 14:18 Crossmatch See Detail 06/21/20 14:18 - Diagnostic Impressions Diagnostic Impressions: Echocardiogram 05/20/20 13:02 Transthoracic Echocardiogram Indication: CHF BP: 97/73 Conclusions *The study quality is technically very difficult and limited. *The left ventricular chamber size, wall thickness and systolic function are within normal limits. There are no wall motion abnormalities observed. Ejection fraction is normal. *The estimated ejection fraction is 60-65%. *The pericardium appears normal. Findings Procedure Info: The study quality is technically difficult. Left Ventricle: The left ventricular chamber size, wall thickness and systolic function are within normal limits. There are no wall motion abnormalities observed. Ejection fraction is normal. The estimated ejection fraction is 60-65%. Abnormal left ventricular diastolic filling is observed, consistent with impaired relaxation. Left Atrium: The left atrium is normal in size with no visual thrombus identified. Right Ventricle: The right ventricle is not well visualized. Right Atrium: The right atrium is not well visualized. Aortic Valve: The aortic valve is trileaflet. The leaflets are thin with normal excursion. There is no aortic stenosis or regurgitation present. Mitral Valve: The mitral valve appears normal in structure and function. Tricuspid Valve: The tricuspid valve appears normal in structure and function. Unable to estimate the right ventricular systolic pressure. Pulmonic Valve: The pulmonic valve is not well visualized. There is no evidence of pulmonic regurgitation. There is no pulmonic stenosis. Pericardium: The pericardium appears normal. Pulmonary Artery: The main pulmonary artery is not well visualized. Venous: The inferior vena cava appears normal in size. Measurements Chambers 2D Name Value Normal Range IVSd (2D) 0.83 cm (0.6 - 1.1) LVPWd (2D) 0.83 cm (0.6 - 1.1) LVIDd (2D) 3.88 cm (3.7 - 5.6) LVIDs (2D) 2.46 cm (2 - 3.8) LV FS (2D) 36.52 % - EF Teichholz (2D) 66.97 % - Ao root diameter (2D) 3.47 cm (2 - 3.7) Volumes/Mass Name Value Normal Range LA ESV SP 4CH (A/L) 22.4 ml - LA ESV SP 2CH (A/L) 22.89 ml - LA ESV BP (A/L) 23.06 ml - LA ESV SP 4CH (MOD) 21.09 ml - LA ESV SP 2CH (MOD) 22.44 ml - Diastolic/Systolic Function Name Value Normal Range MV E-wave Vmax 0.48 m/sec - MV deceleration time 156.3 msec - MV A-wave Vmax 0.59 m/sec - MV E:A ratio 0.81 ratio - Aortic Valve Name Value Normal Range AV Vmax 0.97 m/sec - AV VTI 14.49 cm - AV peak gradient 3.73 mmHg - AV mean gradient 1.89 mmHg - LVOT diameter 2.09 cm - LVOT Vmax 0.72 m/sec - LVOT VTI 10.21 cm - LVOT peak gradient 2.05 mmHg - LVOT mean gradient 1.03 mmHg - SV LVOT 35.17 ml - INNA (continuity Vmax) 2.55 cm2 - INNA (continuity VTI) 2.43 cm2 - Tricuspid Valve Name Value Normal Range TV E-wave Vmax 0.37 m/sec - Pulmonic Valve/Qp:Qs Name Value Normal Range PV Vmax 0.72 m/sec - PV peak gradient 2.06 mmHg - RVOT Vmax 0.85 m/sec - RVOT VTI 9.89 cm - RVOT peak gradient 2.9 mmHg - PV acceleration time 72.31 msec - Cantor/IV: Voiding Method Condom Catheter IV Catheter Type [Right Upper Peripheral IV arm] IV Catheter Type [Right CVL Internal Jugular] IV Catheter Type [Right Peripheral IV Forearm] IV Catheter Type [Left Forearm INT / Saline Lock ] IV Catheter Type [Left Wrist] INT / Saline Lock IV Catheter Type [Right Hand] INT / Saline Lock IV Catheter Type [Left Hand] INT / Saline Lock IV Catheter Type [Left Peripheral IV Antecubital] Active Medications - Current Medications Current Medications: Generic Name Dose Route Start Last Admin Trade Name Freq PRN Reason Stop Dose Admin Alprazolam 0.25 mg 05/20/20 17:53 07/17/20 12:00 Alprazolam 0.25 Mg Tab PO 0.25 mg Q8H PRN Administration Anxiety Lipase/Protease/Amylase 1 each 05/22/20 13:01 Lipase 10,500/Protease 25,000/Amylase 43,750 (Units) Dr Newell FEEDTUBE PRN PRN For Clogged Feeding Tube Bisacodyl 10 mg 07/14/20 11:00 Bisacodyl 10 Mg Rect Supp LA BID PRN Laxative Effect Docusate Sodium 100 mg 05/28/20 14:00 07/19/20 09:02 Docusate Sodium 100 Mg/10 Ml Oral Liqd PO Not Given BID DESIRE Enoxaparin Sodium 80 mg 07/07/20 23:00 07/19/20 09:01 Enoxaparin 80 Mg/0.8 Ml Inj SUB-Q 80 mg Q12HR DESIRE Administration Enoxaparin Sodium 30 mg 07/07/20 23:00 07/19/20 09:01 Enoxaparin 30 Mg/0.3 Ml Inj SUB-Q 30 mg Q12HR DESIRE Administration Folic Acid 1 mg 05/09/20 15:36 07/19/20 09:01 Folic Acid 1 Mg Tab PO 1 mg QDAY DESIRE Administration Hydrophilic Ointment 1 applic 05/21/20 20:33 Lip Therapy Vaseline TP Q2HR PRN Dry Lips Cefepime HCl 2 gm in 100 mls @ 200 mls/hr 07/14/20 21:00 07/19/20 06:33 Cefepime/Ns 2 Gm/100 Ml IV 100 mls/hr Q8H DESIRE Administration Protocol Insulin Human Lispro 0 unit 05/29/20 14:00 07/19/20 06:37 Insulin Lispro 100 Unit/Ml Vial 3 Ml SUB-Q 3 unit Q6H DESIRE Administration Protocol Lansoprazole 30 mg 06/28/20 10:00 07/19/20 09:01 Lansoprazole 30 Mg Solutab FEEDTUBE 30 mg QDAY DESIRE Administration Lorazepam 1 mg 07/04/20 01:10 07/18/20 11:57 Lorazepam 2 Mg/Ml Vial IV 1 mg Q1HR PRN Administration agitation Methylprednisolone Sodium Succinate 20 mg 07/15/20 10:00 07/19/20 09:01 Methylprednisolone Sod Succinate 40 Mg/1 Ml Inj IV 20 mg Q24HR DESIRE Administration Metoprolol Tartrate 5 mg 07/02/20 17:17 07/08/20 14:38 Metoprolol Tartrate 5 Mg/5 Ml Inj IV 5 mg Q6HR PRN Administration Tachyarrhythmias Metoprolol Tartrate 12.5 mg 07/17/20 12:00 07/19/20 09:02 Metoprolol Tartrate 25 Mg Tab PO 12.5 mg BID DESIRE Administration Midodrine 10 mg 06/30/20 16:00 07/19/20 08:46 Midodrine 5 Mg Tab PO 10 mg TID@0800,1200,1600 DESIRE Administration Multi-Ingred Cream/Lotion/Oil/Oint 1 applic 05/21/20 20:33 Mineral Oil/Petrolatum, White Ophth Oint 3.5 Gm OU Q4HR PRN Dry Eye(s) Olanzapine 5 mg 07/17/20 22:00 07/18/20 21:44 Olanzapine 5 Mg Tab PO 5 mg QHS DESIRE Administration Phenobarbital 32.4 mg 07/04/20 22:00 07/19/20 09:01 Phenobarbital 32.4 Mg Tab PO 32.4 mg BID DESIRE Administration Quetiapine Fumarate 200 mg 07/16/20 10:00 07/19/20 09:02 Quetiapine 200 Mg Tab PO 200 mg QAM DESIRE Administration Senna 17.2 mg 07/14/20 11:00 Sennosides 8.6 Mg Tab PO BID PRN Laxative Effect Simple Syrup 15 ml 05/22/20 13:01 07/15/20 05:35 Simple Syrup 15 Ml FEEDTUBE 15 ml PRN PRN Administration Hypoglycemia Simple Syrup 30 ml 05/22/20 13:01 Simple Syrup 15 Ml FEEDTUBE PRN PRN Hypoglycemia Sodium Bicarbonate 325 mg 05/22/20 13:01 Sodium Bicarbonate 325 Mg Tab FEEDTUBE PRN PRN For Clogged Feeding Tube Sodium Chloride 10 ml 05/09/20 22:00 07/19/20 09:02 Sodium Chloride 0.9% 10 Ml Flush Syringe IV 10 ml BID DESIRE Administration Nutrition/Malnutrition Assess - Dietary Evaluation Nutrition/Malnutrition Findings: Nutrition Notes Start: 05/17/20 14:10 Freq: Status: Active Protocol: Document 07/16/20 13:58 AB (Rec: 07/16/20 14:09 AB [id number]) Co-Sign 07/16/20 13:58 MK Nutrition Notes Initial or Follow up Reassessment Current Diagnosis Acute Kidney Injury,Decubitus( Pressure Ulcer),Sepsis, Respiratory Failure Other Pertinent Diagnosis Bilat pneu, COVID-19 (+), EtOH dependence Current Diet Vital HP at 65 ml/hr Labs/Tests Na 132 K 3.4 Cr 0.3 BG 174 Pertinent Medications Reviewed Height 6 ft Weight 107.5 kg [place] Body Weight (kg) 80.90 BMI 32.1 Weight Status Obese Subjective/Other Information F/U for TF start/tolerance. Observed pt TF running at goal rate. Pt is no longer on vent . Percent of energy/protein needs met: 91%/100% Burn Absent Trauma Absent GI Symptoms None Current % PO Negligible Minimum of two criteria No physical signs of malnutrition #2 Nutrition Diagnosis Increased nutrient needs ( specify in comment below) Diagnosis Progress(for reassessment Continues documentation) #1 Nutrition Diagnosis Inadequate oral intake Diagnosis Progress(for reassessment Continues documentation) Is patient on ventilator? No Is Patient Ambulatory and/or Out of Bed No REE-([facility]-confined to bed) 2365.212 Kcal/Kg value to use for calculation 16 Approximate Energy Requirements Using 1720 kcal/Kg Calculation Used for Recommendations Kcal/kg Additional Notes Protein: 134-161 g (1.25-1.5 g /kg) Fluid: 1 ml/kcal Nutrition Intervention Change Diet Order: Continue current TF Nutrition Support: Vital HP at 65ml/hr with 50ml water flush q4h. For hyponatremia flush with 50 ml q6h. Kcal 1,560 Protein (gm) 136 Fluid (mL) 1,304 Goal #1 TF tolerance Goal #2 TF (at goal rate) to meet at least 75% energy and pro needs Anticipated Discharge Needs: Unable to determine at this time Follow-Up By: 07/23/20 Additional Comments F/U for TF tolerance
--- NOTE | 2020-07-19 11:56 | Progress Note ---
Assessment and Plan Cultures: Blood culture 04/28/2020 no growth today SARS CoV2 PCR positive Sputum and urine culture with no significant growth Blood culture 07/13/2020 Pseudomonas species Assessment: 50 years old male with history of alcohol dependence and obesity admitted on 05/09/2020 due to 5-day history of generalized malaise, fatigue, body aches, dyspnea exertion, cough and shortness of breath, tested positive for COVID-19 2 days before admission: #Pseudomonas bacteremia: Awaiting ID and DOLLY. Currently on cefepime, fevers have resolved since initiation of antibiotics. Continue pending results. Possibly from lungs? #VAP: extubated since onset of bacteremia. Given Pseudomonas in the blood and bilateral airspace disease, presumed VAP. Elevated procalcitonin. #Severe sepsis: likely due to bilateral pneumonia from COVID. #COVID-19: Diagnosed in early May, now with negative PCR. #Acute hypoxemic respiratory failure: intubated on 05/22/2020. Extubated 07/13/2020 Recommendations: -Continue cefepime 2 g every 8 hours -Follow up blood culture ID and DOLLY. Likely to appear in labs "scanned reports" Patricia Buchanan MD [facility] ([facility] O: [phone] F: [phone] Subjective Date of service: 07/19/20 Principal diagnosis: Ac hypoxemic resp failure; COVID-19; Severe Sepsis; Shaggy PNA; Alcohol Abuse Interval history: Afebrile now white count is 17.7. This appears to fluctuate daily. Currently on 4L NC Imaging personally viewed: Chest x-ray: No change Objective - Exam Narrative Exam: Physical Exam: Constitutional: Alert, cooperative. No acute distress. On nasal cannula. Head, Ears, Nose: Normocephalic, atraumatic. Eyes: Conjunctivae/corneas clear. No icterus. No ptosis. Neck: Supple, no meningeal signs Oral: dentition fair, no thrush Cardiovascular: S1, S2 normal. Respiratory: Good air entry, clear to auscultation bilaterally GI: Soft, non-tender; bowel sounds normal. No peritoneal signs. Musculoskeletal: No pedal edema, no cyanosis. Skin: No rash or abscess Hem/Lymphatic: No palpable cervical or supraclavicular nodes. Psych: Mood ok. Affect normal Neurological: Awake, alert, oriented. No gross abnormality - Constitutional Vitals: Vital Signs Temp Pulse Resp BP Pulse Ox 98.5 F 115 H 29 H 98/51 92 07/19/20 08:00 07/19/20 10:00 07/19/20 10:00 07/19/20 10:00 07/19/20 10:00 Temperature -Last 24 Hours Temperature 98.5 F Temperature 99.2 F Temperature 98.2 F Temperature 99.2 F - Labs CBC & Chem 7: 07/18/20 08:47 07/18/20 08:47 Labs: Abnormal lab results 07/18/20 07/18/20 07/19/20 Range/Units 17:18 23:33 05:22 POC Glucose 171 H 162 H 166 H (70-105) mg/dL
--- NOTE | 2020-07-19 14:59 | Progress Note ---
Assessment and Plan Patient Awake. Patients O2 requirements came down.. Patient is on 4 litres o2 via nasal canula, and O2 saturation running 93%. Patient afebrile and has no leukocytosis. Patients D dimer 2911.42. Ferritin 2088. LDH 601. C reactive protein 2.7. Chest xray 05/17/20 reported Persistent diffuse patchy bilateral airspace disease. Apparent interval worsening Repeat chest xray 07/19/20 reported Bilateral pulmonary opacities persist. No pneumothorax. Patient finished course of REMDESIVIR, ceftrioxane and zithromax . Patient is on methylprednisone Cefepime,and S/C Lovenox therapeutic dose and Prevacid. Recommend Physical therapy . I have seen the patient in IM. I spent critical care time of 32 minutes , Reviewing the chart,examining patient, Review labs , chest xray , talking to the respiratory therapy and nursing staff and work out plan of treatment in this critically sick patient. - Patient Problems (1) Acute respiratory failure due to COVID-19 Current Visit: Yes Status: Acute Plan to address problem: O2 4 litres via nasal canula. Continue solumedrol. Continue cefepime, Convert aerosol treatments to metered dose inhalers Continue S/C Lovenox.Therapeutic dose. Continue prevacid. Patient finished course of REMDESIVIR, Ceftrioxana and zithromax. (2) Bilateral pneumonia Current Visit: Yes Status: Acute Plan to address problem: Patient is on cefepime. (3) Acute kidney injury (SEN) with acute tubular necrosis (ATN) Current Visit: Yes Status: Acute Plan to address problem: Management as per nephrology. (4) Alcohol dependence Current Visit: Yes Status: Acute Qualifiers: Substance use status: uncomplicated Qualified Code(s): F10.20 - Alcohol dependence, uncomplicated Plan to address problem: Management as per primary care. (5) Elevated liver function tests Current Visit: Yes Status: Acute Plan to address problem: Liver enzymes elevated either from his alcoholic abuse or from COVID 19 infection. Subjective Date of service: 07/19/20 Principal diagnosis: Ac hypoxemic resp failure; COVID-19; Severe Sepsis; Shaggy PNA; Alcohol Abuse Interval history: Patient Awake. Patients O2 requirements came down.. Patient is on 4 litres o2 via nasal canula, and O2 saturation running 93%. Patient afebrile and has no leukocytosis. Patients D dimer 2911.42. Ferritin 2088. LDH 601. C reactive protein 2.7. Chest xray 05/17/20 reported Persistent diffuse patchy bilateral airspace disease. Apparent interval worsening Repeat chest xray 07/19/20 reported Bilateral pulmonary opacities persist. No pneumothorax. Patient finished course of REMDESIVIR, ceftrioxane and zithromax . Patient is on methylprednisone Cefepime,and S/C Lovenox therapeutic dose and Prevacid. Recommend Physical therapy . Objective Vital Signs - 12hr 07/19/20 07/19/20 07/19/20 03:00 04:00 04:13 Temperature 99.2 F Pulse Rate 118 H 119 H 118 H Pulse Rate [ From Monitor] Respiratory 34 H 34 H Rate Blood Pressure 103/68 106/61 O2 Sat by Pulse 99 97 Oximetry 07/19/20 07/19/20 07/19/20 05:00 05:39 06:00 Temperature Pulse Rate 120 H 117 H Pulse Rate [ From Monitor] Respiratory 28 H 29 H Rate Blood Pressure 106/61 108/54 O2 Sat by Pulse 98 97 98 Oximetry 07/19/20 07/19/20 07/19/20 07:00 07:20 08:00 Temperature 98.5 F Pulse Rate 116 H 117 H Pulse Rate [ 115 H From Monitor] Respiratory 31 H 33 H Rate Blood Pressure 110/56 108/62 O2 Sat by Pulse 99 98 99 Oximetry 07/19/20 07/19/20 07/19/20 09:00 09:02 10:00 Temperature Pulse Rate 119 H 119 H 115 H Pulse Rate [ From Monitor] Respiratory 27 H 29 H Rate Blood Pressure 102/64 102/64 98/51 O2 Sat by Pulse 87 92 Oximetry 07/19/20 07/19/20 07/19/20 11:00 12:00 13:00 Temperature 98.3 F Pulse Rate 117 H 120 H 120 H Pulse Rate [ 120 H From Monitor] Respiratory 33 H 36 H 30 H Rate Blood Pressure 108/60 105/68 108/60 O2 Sat by Pulse 94 94 95 Oximetry Constitutional: no acute distress, alert, other (middle aged obese male with mildly increased respiratory effort at rest ) Eyes: non-icteric ENT: oropharynx moist, other (extubated) Neck: supple, no JVD Effort: mildly labored Ascultation: Bilateral: diminished breath sounds, rhonchi (scant), other (right chest tube) Percussion: Bilateral: not dull Cardiovascular: regular rate and rhythm, other (No R/M) Gastrointestinal: normoactive bowel sounds, soft, non-tender, non-distended (protuberant), other (distended and firm) Integumentary: normal Extremities: no cyanosis, no edema, pulses normal, no ischemia or petechiae Neurologic: non-focal exam (non focal grossly; weak), pupils equal and round, CN II-XII normal, motor strength normal and (very weak ) Psychiatric: mood appropriate, affect normal CBC and BMP: 07/18/20 08:47 07/18/20 08:47 ABG, PT/INR, D-dimer: ABG ABG pH 7.477 (7.320-7.450) H 07/13/20 13:52 POC ABG pCO2 54.4 mmHg (32.0-48.0) H 07/13/20 13:52 ABG pCO2 53.1 mm Hg 07/08/20 Unknown POC ABG pO2 126.8 mmHg (83-108) H 07/13/20 13:52 ABG pO2 75.3 mm Hg (80.0-90.0) L 07/08/20 Unknown POC ABG HCO3 39.3 07/13/20 13:52 ABG O2 Saturation 96.5 % (95.0-99.0) 07/08/20 Unknown PT/INR, D-dimer PT 11.8 Sec. (12.2-14.9) L 06/22/20 14:29 INR 0.88 (0.87-1.13) 06/22/20 14:29 D-Dimer 1887.82 ng/mlDDU (0-234) H 05/20/20 08:16 Abnormal lab findings: Abnormal Labs 05/09/20 05/09/20 05/09/20 12:59 12:59 12:59 WBC 11.8 H RBC Hgb Hct MCV 96 H MCH 34 H MCHC 35 H RDW Lymph % (Auto) 6.9 L [place] % (Auto) Lymph # (Auto) 0.8 L [place] # (Auto) Baso # (Auto) Seg Neutrophils % 87.5 H Seg Neuts % (Manual) Lymphocytes % (Manual) Nucleated RBC % Seg Neutrophils # 10.3 H Seg Neutrophils # Man Lymphocytes # (Manual) Monocytes # (Manual) Eosinophils # (Manual) PT INR APTT D-Dimer Heparin Anti-Xa Level ABG pH POC ABG pCO2 POC ABG pO2 ABG pO2 ABG HCO3 ABG O2 Saturation ABG Base Excess ABG Hemoglobin ABG Oxyhemoglobin ABG Sodium ABG Potassium ABG Chloride ABG Glucose Oxyhemoglobin Carboxyhemoglobin Sodium 130 L Potassium 3.5 L Chloride 86.4 L Carbon Dioxide BUN 33 H Creatinine 2.3 H Glucose 156 H POC Glucose Lactic Acid Calcium Magnesium Ferritin Total Bilirubin 3.40 H Direct Bilirubin 1.7 H AST 385 H ALT 134 H Alkaline Phosphatase Lactate Dehydrogenase C-Reactive Protein Total Protein Albumin 3.0 L Triglycerides Lipase Arterial Blood Glucose Arterial Blood Ionized Calcium Urine WBC (Auto) Coronavirus (PCR) SARS-CoV-2 IgG Ab Crossmatch 05/09/20 05/09/20 05/09/20 12:59 12:59 12:59 WBC RBC Hgb Hct MCV MCH MCHC RDW Lymph % (Auto) [place] % (Auto) Lymph # (Auto) [place] # (Auto) Baso # (Auto) Seg Neutrophils % Seg Neuts % (Manual) Lymphocytes % (Manual) Nucleated RBC % Seg Neutrophils # Seg Neutrophils # Man Lymphocytes # (Manual) Monocytes # (Manual) Eosinophils # (Manual) PT INR APTT D-Dimer 3242.51 H Heparin Anti-Xa Level ABG pH POC ABG pCO2 POC ABG pO2 ABG pO2 ABG HCO3 ABG O2 Saturation ABG Base Excess ABG Hemoglobin ABG Oxyhemoglobin ABG Sodium ABG Potassium ABG Chloride ABG Glucose Oxyhemoglobin Carboxyhemoglobin Sodium Potassium Chloride Carbon Dioxide BUN Creatinine Glucose 158 H POC Glucose Lactic Acid 3.50 H* Calcium Magnesium Ferritin Total Bilirubin Direct Bilirubin AST ALT Alkaline Phosphatase Lactate Dehydrogenase 2166 H C-Reactive Protein 39.00 H Total Protein Albumin Triglycerides Lipase Arterial Blood Glucose Arterial Blood Ionized Calcium Urine WBC (Auto) Coronavirus (PCR) SARS-CoV-2 IgG Ab Crossmatch 05/09/20 05/09/20 05/09/20 12:59 14:20 14:20 WBC RBC Hgb Hct MCV MCH MCHC RDW Lymph % (Auto) [place] % (Auto) Lymph # (Auto) [place] # (Auto) Baso # (Auto) Seg Neutrophils % Seg Neuts % (Manual) Lymphocytes % (Manual) Nucleated RBC % Seg Neutrophils # Seg Neutrophils # Man Lymphocytes # (Manual) Monocytes # (Manual) Eosinophils # (Manual) PT INR APTT D-Dimer 2861.78 H Heparin Anti-Xa Level ABG pH POC ABG pCO2 POC ABG pO2 ABG pO2 ABG HCO3 ABG O2 Saturation ABG Base Excess ABG Hemoglobin ABG Oxyhemoglobin ABG Sodium ABG Potassium ABG Chloride ABG Glucose Oxyhemoglobin Carboxyhemoglobin Sodium Potassium Chloride Carbon Dioxide BUN Creatinine Glucose POC Glucose Lactic Acid 2.20 H* Calcium Magnesium Ferritin 18296.0 H Total Bilirubin Direct Bilirubin AST ALT Alkaline Phosphatase Lactate Dehydrogenase C-Reactive Protein Total Protein Albumin Triglycerides Lipase Arterial Blood Glucose Arterial Blood Ionized Calcium Urine WBC (Auto) Coronavirus (PCR) SARS-CoV-2 IgG Ab Crossmatch 05/09/20 05/09/20 05/09/20 14:20 14:20 15:56 WBC RBC Hgb Hct MCV MCH MCHC RDW Lymph % (Auto) [place] % (Auto) Lymph # (Auto) [place] # (Auto) Baso # (Auto) Seg Neutrophils % Seg Neuts % (Manual) Lymphocytes % (Manual) Nucleated RBC % Seg Neutrophils # Seg Neutrophils # Man Lymphocytes # (Manual) Monocytes # (Manual) Eosinophils # (Manual) PT INR APTT D-Dimer Heparin Anti-Xa Level ABG pH POC ABG pCO2 POC ABG pO2 57.3 L ABG pO2 ABG HCO3 ABG O2 Saturation ABG Base Excess ABG Hemoglobin ABG Oxyhemoglobin 86.3 L ABG Sodium 129.9 L ABG Potassium ABG Chloride ABG Glucose 146 H Oxyhemoglobin Carboxyhemoglobin Sodium Potassium Chloride Carbon Dioxide BUN Creatinine Glucose 143 H POC Glucose Lactic Acid Calcium Magnesium Ferritin 83934.0 H Total Bilirubin Direct Bilirubin AST ALT Alkaline Phosphatase Lactate Dehydrogenase 1953 H C-Reactive Protein 33.50 H Total Protein Albumin Triglycerides Lipase Arterial Blood Glucose 146 H Arterial Blood Ionized Calcium 3.9 L Urine WBC (Auto) Coronavirus (PCR) SARS-CoV-2 IgG Ab Crossmatch 05/10/20 05/10/20 05/10/20 10:32 10:32 18:50 WBC 15.4 H RBC Hgb Hct MCV 97 H MCH 33 H MCHC RDW 13.1 L Lymph % (Auto) [place] % (Auto) Lymph # (Auto) [place] # (Auto) Baso # (Auto) Seg Neutrophils % Seg Neuts % (Manual) 89.0 H Lymphocytes % (Manual) 8.0 L Nucleated RBC % Seg Neutrophils # Seg Neutrophils # Man 13.7 H Lymphocytes # (Manual) Monocytes # (Manual) Eosinophils # (Manual) PT INR APTT D-Dimer Heparin Anti-Xa Level ABG pH POC ABG pCO2 POC ABG pO2 ABG pO2 ABG HCO3 ABG O2 Saturation ABG Base Excess ABG Hemoglobin ABG Oxyhemoglobin ABG Sodium ABG Potassium ABG Chloride ABG Glucose Oxyhemoglobin Carboxyhemoglobin Sodium 136 L Potassium Chloride 97.4 L Carbon Dioxide BUN 37 H Creatinine 1.7 H Glucose 209 H POC Glucose Lactic Acid Calcium Magnesium Ferritin > 2000.0 H Total Bilirubin Direct Bilirubin AST ALT Alkaline Phosphatase Lactate Dehydrogenase C-Reactive Protein Total Protein Albumin Triglycerides Lipase Arterial Blood Glucose Arterial Blood Ionized Calcium Urine WBC (Auto) Coronavirus (PCR) SARS-CoV-2 IgG Ab Crossmatch 05/10/20 05/10/20 05/10/20 18:50 19:00 Unknown WBC RBC Hgb Hct MCV MCH MCHC RDW Lymph % (Auto) [place] % (Auto) Lymph # (Auto) [place] # (Auto) Baso # (Auto) Seg Neutrophils % Seg Neuts % (Manual) Lymphocytes % (Manual) Nucleated RBC % Seg Neutrophils # Seg Neutrophils # Man Lymphocytes # (Manual) Monocytes # (Manual) Eosinophils # (Manual) PT INR APTT D-Dimer > 97424 H Heparin Anti-Xa Level ABG pH POC ABG pCO2 POC ABG pO2 ABG pO2 ABG HCO3 ABG O2 Saturation ABG Base Excess ABG Hemoglobin ABG Oxyhemoglobin ABG Sodium ABG Potassium ABG Chloride ABG Glucose Oxyhemoglobin Carboxyhemoglobin Sodium Potassium Chloride Carbon Dioxide BUN Creatinine Glucose POC Glucose Lactic Acid Calcium Magnesium Ferritin Total Bilirubin Direct Bilirubin AST ALT Alkaline Phosphatase Lactate Dehydrogenase 1879 H C-Reactive Protein 24.80 H Total Protein Albumin Triglycerides Lipase Arterial Blood Glucose Arterial Blood Ionized Calcium Urine WBC (Auto) 11.0 H Coronavirus (PCR) SARS-CoV-2 IgG Ab Crossmatch 05/10/20 05/11/20 05/11/20 Unknown 07:30 07:30 WBC RBC Hgb Hct MCV MCH MCHC RDW Lymph % (Auto) [place] % (Auto) Lymph # (Auto) [place] # (Auto) Baso # (Auto) Seg Neutrophils % Seg Neuts % (Manual) Lymphocytes % (Manual) Nucleated RBC % Seg Neutrophils # Seg Neutrophils # Man Lymphocytes # (Manual) Monocytes # (Manual) Eosinophils # (Manual) PT INR APTT D-Dimer > 2000 H Heparin Anti-Xa Level ABG pH POC ABG pCO2 POC ABG pO2 ABG pO2 ABG HCO3 ABG O2 Saturation ABG Base Excess ABG Hemoglobin ABG Oxyhemoglobin ABG Sodium ABG Potassium ABG Chloride ABG Glucose Oxyhemoglobin Carboxyhemoglobin Sodium Potassium Chloride 96.3 L Carbon Dioxide BUN 36 H Creatinine Glucose 161 H POC Glucose Lactic Acid Calcium 8.3 L Magnesium Ferritin Total Bilirubin 1.50 H Direct Bilirubin 0.6 H AST 178 H ALT 111 H Alkaline Phosphatase Lactate Dehydrogenase C-Reactive Protein Total Protein Albumin 3.0 L Triglycerides Lipase Arterial Blood Glucose Arterial Blood Ionized Calcium Urine WBC (Auto) Coronavirus (PCR) Positive A SARS-CoV-2 IgG Ab Crossmatch 05/11/20 05/11/20 05/11/20 07:30 07:30 07:30 WBC RBC Hgb Hct MCV MCH MCHC RDW Lymph % (Auto) [place] % (Auto) Lymph # (Auto) [place] # (Auto) Baso # (Auto) Seg Neutrophils % Seg Neuts % (Manual) Lymphocytes % (Manual) Nucleated RBC % Seg Neutrophils # Seg Neutrophils # Man Lymphocytes # (Manual) Monocytes # (Manual) Eosinophils # (Manual) PT INR APTT D-Dimer Heparin Anti-Xa Level ABG pH POC ABG pCO2 POC ABG pO2 ABG pO2 ABG HCO3 ABG O2 Saturation ABG Base Excess ABG Hemoglobin ABG Oxyhemoglobin ABG Sodium ABG Potassium ABG Chloride ABG Glucose Oxyhemoglobin Carboxyhemoglobin Sodium Potassium Chloride Carbon Dioxide BUN Creatinine Glucose POC Glucose Lactic Acid Calcium Magnesium Ferritin 46786.0 H Total Bilirubin Direct Bilirubin AST ALT Alkaline Phosphatase Lactate Dehydrogenase 1523 H C-Reactive Protein 12.90 H Total Protein Albumin Triglycerides Lipase Arterial Blood Glucose Arterial Blood Ionized Calcium Urine WBC (Auto) Coronavirus (PCR) SARS-CoV-2 IgG Ab Reactive A Crossmatch 05/13/20 05/13/20 05/15/20 05:20 05:20 08:15 WBC RBC Hgb Hct MCV MCH MCHC RDW Lymph % (Auto) [place] % (Auto) Lymph # (Auto) [place] # (Auto) Baso # (Auto) Seg Neutrophils % Seg Neuts % (Manual) Lymphocytes % (Manual) Nucleated RBC % Seg Neutrophils # Seg Neutrophils # Man Lymphocytes # (Manual) Monocytes # (Manual) Eosinophils # (Manual) PT INR APTT D-Dimer > 96511 H 5318.28 H Heparin Anti-Xa Level ABG pH POC ABG pCO2 POC ABG pO2 ABG pO2 ABG HCO3 ABG O2 Saturation ABG Base Excess ABG Hemoglobin ABG Oxyhemoglobin ABG Sodium ABG Potassium ABG Chloride ABG Glucose Oxyhemoglobin Carboxyhemoglobin Sodium Potassium Chloride Carbon Dioxide 32 H BUN 30 H Creatinine Glucose 156 H POC Glucose Lactic Acid Calcium Magnesium 2.60 H Ferritin Total Bilirubin 1.40 H Direct Bilirubin AST 121 H ALT 119 H Alkaline Phosphatase Lactate Dehydrogenase 957 H C-Reactive Protein 4.00 H Total Protein Albumin 3.0 L Triglycerides Lipase Arterial Blood Glucose Arterial Blood Ionized Calcium Urine WBC (Auto) Coronavirus (PCR) SARS-CoV-2 IgG Ab Crossmatch 05/15/20 05/15/20 05/15/20 08:15 08:15 08:15 WBC 12.4 H RBC Hgb Hct MCV 98 H MCH 33 H MCHC RDW Lymph % (Auto) 9.7 L [place] % (Auto) Lymph # (Auto) [place] # (Auto) Baso # (Auto) Seg Neutrophils % 86.8 H Seg Neuts % (Manual) Lymphocytes % (Manual) Nucleated RBC % Seg Neutrophils # 10.8 H Seg Neutrophils # Man Lymphocytes # (Manual) Monocytes # (Manual) Eosinophils # (Manual) PT INR APTT D-Dimer Heparin Anti-Xa Level ABG pH POC ABG pCO2 POC ABG pO2 ABG pO2 ABG HCO3 ABG O2 Saturation ABG Base Excess ABG Hemoglobin ABG Oxyhemoglobin ABG Sodium ABG Potassium ABG Chloride ABG Glucose Oxyhemoglobin Carboxyhemoglobin Sodium Potassium Chloride 94.8 L Carbon Dioxide 32 H BUN 22 H Creatinine Glucose 115 H POC Glucose Lactic Acid Calcium 8.3 L Magnesium Ferritin 2494.0 H Total Bilirubin Direct Bilirubin AST 73 H ALT 121 H Alkaline Phosphatase Lactate Dehydrogenase 835 H C-Reactive Protein 3.40 H Total Protein 6.1 L Albumin 3.0 L Triglycerides Lipase Arterial Blood Glucose Arterial Blood Ionized Calcium Urine WBC (Auto) Coronavirus (PCR) SARS-CoV-2 IgG Ab Crossmatch 05/17/20 05/17/20 05/17/20 05:50 05:50 05:50 WBC RBC Hgb Hct MCV MCH MCHC RDW Lymph % (Auto) [place] % (Auto) Lymph # (Auto) [place] # (Auto) Baso # (Auto) Seg Neutrophils % Seg Neuts % (Manual) Lymphocytes % (Manual) Nucleated RBC % Seg Neutrophils # Seg Neutrophils # Man Lymphocytes # (Manual) Monocytes # (Manual) Eosinophils # (Manual) PT INR APTT D-Dimer 2911.42 H Heparin Anti-Xa Level ABG pH POC ABG pCO2 POC ABG pO2 ABG pO2 ABG HCO3 ABG O2 Saturation ABG Base Excess ABG Hemoglobin ABG Oxyhemoglobin ABG Sodium ABG Potassium ABG Chloride ABG Glucose Oxyhemoglobin Carboxyhemoglobin Sodium 136 L Potassium Chloride 96.0 L Carbon Dioxide 34 H BUN 22 H Creatinine Glucose 140 H POC Glucose Lactic Acid Calcium Magnesium Ferritin 2082.0 H Total Bilirubin Direct Bilirubin AST ALT 75 H Alkaline Phosphatase Lactate Dehydrogenase 601 H C-Reactive Protein 2.70 H Total Protein Albumin 2.9 L Triglycerides Lipase Arterial Blood Glucose Arterial Blood Ionized Calcium Urine WBC (Auto) Coronavirus (PCR) SARS-CoV-2 IgG Ab Crossmatch 05/17/20 05/18/20 05/20/20 05:50 12:22 08:16 WBC RBC Hgb Hct MCV 98 H MCH 33 H MCHC RDW Lymph % (Auto) 8.0 L [place] % (Auto) Lymph # (Auto) 0.8 L [place] # (Auto) Baso # (Auto) Seg Neutrophils % 89.3 H Seg Neuts % (Manual) Lymphocytes % (Manual) Nucleated RBC % Seg Neutrophils # 8.8 H Seg Neutrophils # Man Lymphocytes # (Manual) Monocytes # (Manual) Eosinophils # (Manual) PT INR APTT D-Dimer 1887.82 H Heparin Anti-Xa Level ABG pH POC ABG pCO2 POC ABG pO2 ABG pO2 ABG HCO3 ABG O2 Saturation ABG Base Excess ABG Hemoglobin ABG Oxyhemoglobin ABG Sodium ABG Potassium ABG Chloride ABG Glucose Oxyhemoglobin Carboxyhemoglobin Sodium Potassium Chloride Carbon Dioxide BUN Creatinine Glucose POC Glucose 178 H Lactic Acid Calcium Magnesium Ferritin Total Bilirubin Direct Bilirubin AST ALT Alkaline Phosphatase Lactate Dehydrogenase C-Reactive Protein Total Protein Albumin Triglycerides Lipase Arterial Blood Glucose Arterial Blood Ionized Calcium Urine WBC (Auto) Coronavirus (PCR) SARS-CoV-2 IgG Ab Crossmatch 05/20/20 05/20/20 05/21/20 08:16 08:16 21:10 WBC RBC Hgb Hct MCV MCH MCHC RDW Lymph % (Auto) [place] % (Auto) Lymph # (Auto) [place] # (Auto) Baso # (Auto) Seg Neutrophils % Seg Neuts % (Manual) Lymphocytes % (Manual) Nucleated RBC % Seg Neutrophils # Seg Neutrophils # Man Lymphocytes # (Manual) Monocytes # (Manual) Eosinophils # (Manual) PT INR APTT D-Dimer Heparin Anti-Xa Level ABG pH 7.483 H POC ABG pCO2 POC ABG pO2 ABG pO2 50.0 L ABG HCO3 27.0 H ABG O2 Saturation 86.2 L ABG Base Excess 3.7 H ABG Hemoglobin ABG Oxyhemoglobin ABG Sodium ABG Potassium ABG Chloride ABG Glucose Oxyhemoglobin 84.2 L Carboxyhemoglobin Sodium Potassium Chloride Carbon Dioxide BUN Creatinine Glucose POC Glucose Lactic Acid Calcium Magnesium Ferritin 1960.0 H Total Bilirubin Direct Bilirubin AST ALT Alkaline Phosphatase Lactate Dehydrogenase 705 H C-Reactive Protein 3.10 H Total Protein Albumin Triglycerides Lipase Arterial Blood Glucose Arterial Blood Ionized Calcium Urine WBC (Auto) Coronavirus (PCR) SARS-CoV-2 IgG Ab Crossmatch 05/22/20 05/22/20 05/22/20 04:01 07:53 07:53 WBC 19.2 H RBC Hgb Hct MCV 98 H MCH 34 H MCHC RDW Lymph % (Auto) [place] % (Auto) Lymph # (Auto) [place] # (Auto) Baso # (Auto) Seg Neutrophils % Seg Neuts % (Manual) 96.0 H Lymphocytes % (Manual) 1.0 L Nucleated RBC % Seg Neutrophils # Seg Neutrophils # Man 18.4 H Lymphocytes # (Manual) 0.2 L Monocytes # (Manual) Eosinophils # (Manual) PT INR APTT D-Dimer Heparin Anti-Xa Level ABG pH POC ABG pCO2 53.8 H POC ABG pO2 125.5 H ABG pO2 ABG HCO3 ABG O2 Saturation ABG Base Excess ABG Hemoglobin ABG Oxyhemoglobin ABG Sodium 131.8 L ABG Potassium 4.8 H ABG Chloride 94.0 L ABG Glucose 163 H Oxyhemoglobin Carboxyhemoglobin Sodium 131 L Potassium Chloride 93.4 L Carbon Dioxide BUN 40 H Creatinine Glucose 176 H POC Glucose Lactic Acid Calcium Magnesium 2.70 H Ferritin Total Bilirubin 1.80 H Direct Bilirubin AST 45 H ALT 116 H Alkaline Phosphatase 181 H Lactate Dehydrogenase C-Reactive Protein Total Protein Albumin 2.6 L Triglycerides Lipase Arterial Blood Glucose 163 H Arterial Blood Ionized Calcium 4.5 L Urine WBC (Auto) Coronavirus (PCR) SARS-CoV-2 IgG Ab Crossmatch 05/23/20 05/24/20 05/24/20 04:17 03:07 04:08 WBC RBC Hgb Hct MCV MCH MCHC RDW Lymph % (Auto) [place] % (Auto) Lymph # (Auto) [place] # (Auto) Baso # (Auto) Seg Neutrophils % Seg Neuts % (Manual) Lymphocytes % (Manual) Nucleated RBC % Seg Neutrophils # Seg Neutrophils # Man Lymphocytes # (Manual) Monocytes # (Manual) Eosinophils # (Manual) PT INR APTT D-Dimer Heparin Anti-Xa Level ABG pH 7.328 L POC ABG pCO2 POC ABG pO2 ABG pO2 72.8 L 73.4 L ABG HCO3 31.0 H 34.0 H ABG O2 Saturation 93.5 L ABG Base Excess 3.5 H 7.7 H ABG Hemoglobin 13.3 L 12.1 L ABG Oxyhemoglobin ABG Sodium ABG Potassium ABG Chloride ABG Glucose Oxyhemoglobin 91.5 L 94.3 L Carboxyhemoglobin Sodium Potassium Chloride Carbon Dioxide BUN Creatinine Glucose POC Glucose 155 H Lactic Acid Calcium Magnesium Ferritin Total Bilirubin Direct Bilirubin AST ALT Alkaline Phosphatase Lactate Dehydrogenase C-Reactive Protein Total Protein Albumin Triglycerides Lipase Arterial Blood Glucose Arterial Blood Ionized Calcium Urine WBC (Auto) Coronavirus (PCR) SARS-CoV-2 IgG Ab Crossmatch 05/24/20 05/24/20 05/24/20 09:33 12:21 17:52 WBC RBC Hgb Hct MCV MCH MCHC RDW Lymph % (Auto) [place] % (Auto) Lymph # (Auto) [place] # (Auto) Baso # (Auto) Seg Neutrophils % Seg Neuts % (Manual) Lymphocytes % (Manual) Nucleated RBC % Seg Neutrophils # Seg Neutrophils # Man Lymphocytes # (Manual) Monocytes # (Manual) Eosinophils # (Manual) PT INR APTT D-Dimer Heparin Anti-Xa Level ABG pH POC ABG pCO2 POC ABG pO2 ABG pO2 ABG HCO3 ABG O2 Saturation ABG Base Excess ABG Hemoglobin ABG Oxyhemoglobin ABG Sodium ABG Potassium ABG Chloride ABG Glucose Oxyhemoglobin Carboxyhemoglobin Sodium Potassium Chloride Carbon Dioxide 34 H D BUN 28 H Creatinine 0.7 L Glucose 168 H POC Glucose 173 H 164 H Lactic Acid Calcium Magnesium Ferritin Total Bilirubin Direct Bilirubin AST ALT Alkaline Phosphatase Lactate Dehydrogenase C-Reactive Protein Total Protein Albumin Triglycerides Lipase Arterial Blood Glucose Arterial Blood Ionized Calcium Urine WBC (Auto) Coronavirus (PCR) SARS-CoV-2 IgG Ab Crossmatch 05/24/20 05/25/20 05/25/20 23:47 04:29 05:46 WBC RBC Hgb Hct MCV MCH MCHC RDW Lymph % (Auto) [place] % (Auto) Lymph # (Auto) [place] # (Auto) Baso # (Auto) Seg Neutrophils % Seg Neuts % (Manual) Lymphocytes % (Manual) Nucleated RBC % Seg Neutrophils # Seg Neutrophils # Man Lymphocytes # (Manual) Monocytes # (Manual) Eosinophils # (Manual) PT INR APTT D-Dimer Heparin Anti-Xa Level ABG pH POC ABG pCO2 68.6 H POC ABG pO2 ABG pO2 ABG HCO3 ABG O2 Saturation ABG Base Excess ABG Hemoglobin ABG Oxyhemoglobin ABG Sodium ABG Potassium 4.7 H ABG Chloride ABG Glucose 226 H Oxyhemoglobin Carboxyhemoglobin Sodium Potassium Chloride Carbon Dioxide BUN Creatinine Glucose POC Glucose 171 H 201 H Lactic Acid Calcium Magnesium Ferritin Total Bilirubin Direct Bilirubin AST ALT Alkaline Phosphatase Lactate Dehydrogenase C-Reactive Protein Total Protein Albumin Triglycerides Lipase Arterial Blood Glucose 226 H Arterial Blood Ionized Calcium Urine WBC (Auto) Coronavirus (PCR) SARS-CoV-2 IgG Ab Crossmatch 05/25/20 05/25/20 05/25/20 08:37 08:37 12:38 WBC 12.0 H RBC 3.64 L Hgb Hct MCV 99 H MCH 33 H MCHC RDW Lymph % (Auto) [place] % (Auto) Lymph # (Auto) [place] # (Auto) Baso # (Auto) Seg Neutrophils % Seg Neuts % (Manual) Lymphocytes % (Manual) Nucleated RBC % Seg Neutrophils # Seg Neutrophils # Man Lymphocytes # (Manual) Monocytes # (Manual) Eosinophils # (Manual) PT INR APTT D-Dimer Heparin Anti-Xa Level ABG pH POC ABG pCO2 POC ABG pO2 ABG pO2 ABG HCO3 ABG O2 Saturation ABG Base Excess ABG Hemoglobin ABG Oxyhemoglobin ABG Sodium ABG Potassium ABG Chloride ABG Glucose Oxyhemoglobin Carboxyhemoglobin Sodium Potassium Chloride 97.3 L Carbon Dioxide 35 H BUN 25 H Creatinine 0.7 L Glucose 191 H POC Glucose 182 H Lactic Acid Calcium Magnesium Ferritin Total Bilirubin Direct Bilirubin AST ALT Alkaline Phosphatase Lactate Dehydrogenase C-Reactive Protein Total Protein Albumin Triglycerides Lipase Arterial Blood Glucose Arterial Blood Ionized Calcium Urine WBC (Auto) Coronavirus (PCR) SARS-CoV-2 IgG Ab Crossmatch 05/25/20 05/26/20 05/26/20 18:16 00:06 04:50 WBC RBC Hgb Hct MCV MCH MCHC RDW Lymph % (Auto) [place] % (Auto) Lymph # (Auto) [place] # (Auto) Baso # (Auto) Seg Neutrophils % Seg Neuts % (Manual) Lymphocytes % (Manual) Nucleated RBC % Seg Neutrophils # Seg Neutrophils # Man Lymphocytes # (Manual) Monocytes # (Manual) Eosinophils # (Manual) PT INR APTT D-Dimer Heparin Anti-Xa Level ABG pH POC ABG pCO2 POC ABG pO2 ABG pO2 221.5 H ABG HCO3 40.4 H ABG O2 Saturation 99.3 H ABG Base Excess 12.8 H ABG Hemoglobin 10.4 L ABG Oxyhemoglobin ABG Sodium ABG Potassium ABG Chloride ABG Glucose Oxyhemoglobin Carboxyhemoglobin Sodium Potassium Chloride Carbon Dioxide BUN Creatinine Glucose POC Glucose 176 H 152 H Lactic Acid Calcium Magnesium Ferritin Total Bilirubin Direct Bilirubin AST ALT Alkaline Phosphatase Lactate Dehydrogenase C-Reactive Protein Total Protein Albumin Triglycerides Lipase Arterial Blood Glucose Arterial Blood Ionized Calcium Urine WBC (Auto) Coronavirus (PCR) SARS-CoV-2 IgG Ab Crossmatch 05/26/20 05/26/20 05/26/20 06:11 07:51 07:51 WBC 13.4 H RBC 3.64 L Hgb Hct MCV 98 H MCH 33 H MCHC RDW Lymph % (Auto) [place] % (Auto) Lymph # (Auto) [place] # (Auto) Baso # (Auto) Seg Neutrophils % Seg Neuts % (Manual) Lymphocytes % (Manual) Nucleated RBC % Seg Neutrophils # Seg Neutrophils # Man Lymphocytes # (Manual) Monocytes # (Manual) Eosinophils # (Manual) PT INR APTT D-Dimer Heparin Anti-Xa Level ABG pH POC ABG pCO2 POC ABG pO2 ABG pO2 ABG HCO3 ABG O2 Saturation ABG Base Excess ABG Hemoglobin ABG Oxyhemoglobin ABG Sodium ABG Potassium ABG Chloride ABG Glucose Oxyhemoglobin Carboxyhemoglobin Sodium Potassium Chloride 96.6 L Carbon Dioxide 39 H BUN 29 H Creatinine 0.7 L Glucose 174 H POC Glucose 165 H Lactic Acid Calcium Magnesium Ferritin Total Bilirubin Direct Bilirubin AST ALT Alkaline Phosphatase Lactate Dehydrogenase C-Reactive Protein Total Protein Albumin Triglycerides Lipase Arterial Blood Glucose Arterial Blood Ionized Calcium Urine WBC (Auto) Coronavirus (PCR) SARS-CoV-2 IgG Ab Crossmatch 05/26/20 05/27/20 05/27/20 23:23 03:43 05:29 WBC RBC Hgb Hct MCV MCH MCHC RDW Lymph % (Auto) [place] % (Auto) Lymph # (Auto) [place] # (Auto) Baso # (Auto) Seg Neutrophils % Seg Neuts % (Manual) Lymphocytes % (Manual) Nucleated RBC % Seg Neutrophils # Seg Neutrophils # Man Lymphocytes # (Manual) Monocytes # (Manual) Eosinophils # (Manual) PT INR APTT D-Dimer Heparin Anti-Xa Level ABG pH 7.480 H POC ABG pCO2 52.4 H POC ABG pO2 61.4 L ABG pO2 ABG HCO3 ABG O2 Saturation ABG Base Excess ABG Hemoglobin ABG Oxyhemoglobin ABG Sodium 134.9 L ABG Potassium ABG Chloride 95.0 L ABG Glucose 221 H Oxyhemoglobin Carboxyhemoglobin Sodium Potassium Chloride Carbon Dioxide BUN Creatinine Glucose POC Glucose 169 H 227 H Lactic Acid Calcium Magnesium Ferritin Total Bilirubin Direct Bilirubin AST ALT Alkaline Phosphatase Lactate Dehydrogenase C-Reactive Protein Total Protein Albumin Triglycerides Lipase Arterial Blood Glucose 221 H Arterial Blood Ionized Calcium 4.5 L Urine WBC (Auto) Coronavirus (PCR) SARS-CoV-2 IgG Ab Crossmatch 05/27/20 05/27/20 05/27/20 07:19 12:18 13:50 WBC RBC Hgb Hct MCV MCH MCHC RDW Lymph % (Auto) [place] % (Auto) Lymph # (Auto) [place] # (Auto) Baso # (Auto) Seg Neutrophils % Seg Neuts % (Manual) Lymphocytes % (Manual) Nucleated RBC % Seg Neutrophils # Seg Neutrophils # Man Lymphocytes # (Manual) Monocytes # (Manual) Eosinophils # (Manual) PT INR APTT D-Dimer Heparin Anti-Xa Level ABG pH POC ABG pCO2 POC ABG pO2 ABG pO2 ABG HCO3 ABG O2 Saturation ABG Base Excess ABG Hemoglobin ABG Oxyhemoglobin ABG Sodium ABG Potassium ABG Chloride ABG Glucose Oxyhemoglobin Carboxyhemoglobin Sodium Potassium Chloride Carbon Dioxide BUN Creatinine Glucose POC Glucose 114 H 148 H Lactic Acid Calcium Magnesium Ferritin Total Bilirubin Direct Bilirubin AST ALT Alkaline Phosphatase Lactate Dehydrogenase C-Reactive Protein Total Protein Albumin Triglycerides 247 H Lipase Arterial Blood Glucose Arterial Blood Ionized Calcium Urine WBC (Auto) Coronavirus (PCR) SARS-CoV-2 IgG Ab Crossmatch 05/28/20 05/28/20 05/28/20 00:13 04:16 05:22 WBC RBC Hgb Hct MCV MCH MCHC RDW Lymph % (Auto) [place] % (Auto) Lymph # (Auto) [place] # (Auto) Baso # (Auto) Seg Neutrophils % Seg Neuts % (Manual) Lymphocytes % (Manual) Nucleated RBC % Seg Neutrophils # Seg Neutrophils # Man Lymphocytes # (Manual) Monocytes # (Manual) Eosinophils # (Manual) PT INR APTT D-Dimer Heparin Anti-Xa Level ABG pH POC ABG pCO2 64.4 H POC ABG pO2 60.5 L ABG pO2 ABG HCO3 ABG O2 Saturation ABG Base Excess ABG Hemoglobin ABG Oxyhemoglobin ABG Sodium ABG Potassium ABG Chloride 95.0 L ABG Glucose 209 H Oxyhemoglobin Carboxyhemoglobin Sodium Potassium Chloride Carbon Dioxide BUN Creatinine Glucose POC Glucose 155 H 186 H Lactic Acid Calcium Magnesium Ferritin Total Bilirubin Direct Bilirubin AST ALT Alkaline Phosphatase Lactate Dehydrogenase C-Reactive Protein Total Protein Albumin Triglycerides Lipase Arterial Blood Glucose 209 H Arterial Blood Ionized Calcium Urine WBC (Auto) Coronavirus (PCR) SARS-CoV-2 IgG Ab Crossmatch 05/28/20 05/28/20 05/29/20 12:45 17:39 00:37 WBC RBC Hgb Hct MCV MCH MCHC RDW Lymph % (Auto) [place] % (Auto) Lymph # (Auto) [place] # (Auto) Baso # (Auto) Seg Neutrophils % Seg Neuts % (Manual) Lymphocytes % (Manual) Nucleated RBC % Seg Neutrophils # Seg Neutrophils # Man Lymphocytes # (Manual) Monocytes # (Manual) Eosinophils # (Manual) PT INR APTT D-Dimer Heparin Anti-Xa Level ABG pH POC ABG pCO2 POC ABG pO2 ABG pO2 ABG HCO3 ABG O2 Saturation ABG Base Excess ABG Hemoglobin ABG Oxyhemoglobin ABG Sodium ABG Potassium ABG Chloride ABG Glucose Oxyhemoglobin Carboxyhemoglobin Sodium Potassium Chloride Carbon Dioxide BUN Creatinine Glucose POC Glucose 143 H 164 H 221 H Lactic Acid Calcium Magnesium Ferritin Total Bilirubin Direct Bilirubin AST ALT Alkaline Phosphatase Lactate Dehydrogenase C-Reactive Protein Total Protein Albumin Triglycerides Lipase Arterial Blood Glucose Arterial Blood Ionized Calcium Urine WBC (Auto) Coronavirus (PCR) SARS-CoV-2 IgG Ab Crossmatch 05/29/20 05/29/20 05/29/20 04:15 05:33 12:34 WBC RBC Hgb Hct MCV MCH MCHC RDW Lymph % (Auto) [place] % (Auto) Lymph # (Auto) [place] # (Auto) Baso # (Auto) Seg Neutrophils % Seg Neuts % (Manual) Lymphocytes % (Manual) Nucleated RBC % Seg Neutrophils # Seg Neutrophils # Man Lymphocytes # (Manual) Monocytes # (Manual) Eosinophils # (Manual) PT INR APTT D-Dimer Heparin Anti-Xa Level ABG pH 7.463 H POC ABG pCO2 56.3 H POC ABG pO2 81.2 L ABG pO2 ABG HCO3 ABG O2 Saturation ABG Base Excess ABG Hemoglobin ABG Oxyhemoglobin ABG Sodium ABG Potassium ABG Chloride 96.0 L ABG Glucose 194 H Oxyhemoglobin Carboxyhemoglobin Sodium Potassium Chloride Carbon Dioxide BUN Creatinine Glucose POC Glucose 133 H 221 H Lactic Acid Calcium Magnesium Ferritin Total Bilirubin Direct Bilirubin AST ALT Alkaline Phosphatase Lactate Dehydrogenase C-Reactive Protein Total Protein Albumin Triglycerides Lipase Arterial Blood Glucose 194 H Arterial Blood Ionized Calcium 4.5 L Urine WBC (Auto) Coronavirus (PCR) SARS-CoV-2 IgG Ab Crossmatch 05/29/20 05/30/20 05/30/20 18:07 00:12 05:38 WBC RBC Hgb Hct MCV MCH MCHC RDW Lymph % (Auto) [place] % (Auto) Lymph # (Auto) [place] # (Auto) Baso # (Auto) Seg Neutrophils % Seg Neuts % (Manual) Lymphocytes % (Manual) Nucleated RBC % Seg Neutrophils # Seg Neutrophils # Man Lymphocytes # (Manual) Monocytes # (Manual) Eosinophils # (Manual) PT INR APTT D-Dimer Heparin Anti-Xa Level ABG pH POC ABG pCO2 POC ABG pO2 ABG pO2 ABG HCO3 ABG O2 Saturation ABG Base Excess ABG Hemoglobin ABG Oxyhemoglobin ABG Sodium ABG Potassium ABG Chloride ABG Glucose Oxyhemoglobin Carboxyhemoglobin Sodium Potassium Chloride Carbon Dioxide BUN Creatinine Glucose POC Glucose 162 H 190 H 208 H Lactic Acid Calcium Magnesium Ferritin Total Bilirubin Direct Bilirubin AST ALT Alkaline Phosphatase Lactate Dehydrogenase C-Reactive Protein Total Protein Albumin Triglycerides Lipase Arterial Blood Glucose Arterial Blood Ionized Calcium Urine WBC (Auto) Coronavirus (PCR) SARS-CoV-2 IgG Ab Crossmatch 05/30/20 05/30/20 05/30/20 09:30 11:35 11:54 WBC 12.4 H RBC 3.48 L Hgb 11.3 L Hct 34.6 L MCV 99 H MCH 33 H MCHC RDW Lymph % (Auto) [place] % (Auto) Lymph # (Auto) [place] # (Auto) Baso # (Auto) Seg Neutrophils % Seg Neuts % (Manual) Lymphocytes % (Manual) Nucleated RBC % Seg Neutrophils # Seg Neutrophils # Man Lymphocytes # (Manual) Monocytes # (Manual) Eosinophils # (Manual) PT INR APTT D-Dimer Heparin Anti-Xa Level ABG pH 7.455 H POC ABG pCO2 57.5 H POC ABG pO2 81.5 L ABG pO2 ABG HCO3 ABG O2 Saturation ABG Base Excess ABG Hemoglobin ABG Oxyhemoglobin ABG Sodium ABG Potassium ABG Chloride 96.0 L ABG Glucose 204 H Oxyhemoglobin Carboxyhemoglobin Sodium Potassium Chloride Carbon Dioxide BUN Creatinine Glucose POC Glucose 183 H Lactic Acid Calcium Magnesium Ferritin Total Bilirubin Direct Bilirubin AST ALT Alkaline Phosphatase Lactate Dehydrogenase C-Reactive Protein Total Protein Albumin Triglycerides Lipase Arterial Blood Glucose 204 H Arterial Blood Ionized Calcium Urine WBC (Auto) Coronavirus (PCR) SARS-CoV-2 IgG Ab Crossmatch 05/30/20 05/31/20 05/31/20 18:01 00:10 03:22 WBC RBC Hgb Hct MCV MCH MCHC RDW Lymph % (Auto) [place] % (Auto) Lymph # (Auto) [place] # (Auto) Baso # (Auto) Seg Neutrophils % Seg Neuts % (Manual) Lymphocytes % (Manual) Nucleated RBC % Seg Neutrophils # Seg Neutrophils # Man Lymphocytes # (Manual) Monocytes # (Manual) Eosinophils # (Manual) PT INR APTT D-Dimer Heparin Anti-Xa Level ABG pH POC ABG pCO2 60.4 H POC ABG pO2 71.5 L ABG pO2 ABG HCO3 ABG O2 Saturation ABG Base Excess ABG Hemoglobin ABG Oxyhemoglobin ABG Sodium ABG Potassium ABG Chloride 96.0 L ABG Glucose 169 H Oxyhemoglobin Carboxyhemoglobin Sodium Potassium Chloride Carbon Dioxide BUN Creatinine Glucose POC Glucose 184 H 135 H Lactic Acid Calcium Magnesium Ferritin Total Bilirubin Direct Bilirubin AST ALT Alkaline Phosphatase Lactate Dehydrogenase C-Reactive Protein Total Protein Albumin Triglycerides Lipase Arterial Blood Glucose 169 H Arterial Blood Ionized Calcium 4.5 L Urine WBC (Auto) Coronavirus (PCR) SARS-CoV-2 IgG Ab Crossmatch 05/31/20 05/31/20 05/31/20 05:24 11:18 14:41 WBC RBC Hgb Hct MCV MCH MCHC RDW Lymph % (Auto) [place] % (Auto) Lymph # (Auto) [place] # (Auto) Baso # (Auto) Seg Neutrophils % Seg Neuts % (Manual) Lymphocytes % (Manual) Nucleated RBC % Seg Neutrophils # Seg Neutrophils # Man Lymphocytes # (Manual) Monocytes # (Manual) Eosinophils # (Manual) PT INR APTT D-Dimer Heparin Anti-Xa Level ABG pH POC ABG pCO2 POC ABG pO2 ABG pO2 ABG HCO3 ABG O2 Saturation ABG Base Excess ABG Hemoglobin ABG Oxyhemoglobin ABG Sodium ABG Potassium ABG Chloride ABG Glucose Oxyhemoglobin Carboxyhemoglobin Sodium Potassium Chloride 96.8 L Carbon Dioxide 37 H BUN 31 H Creatinine 0.6 L Glucose 213 H POC Glucose 164 H 208 H Lactic Acid Calcium Magnesium Ferritin Total Bilirubin Direct Bilirubin AST ALT Alkaline Phosphatase Lactate Dehydrogenase C-Reactive Protein Total Protein Albumin Triglycerides Lipase Arterial Blood Glucose Arterial Blood Ionized Calcium Urine WBC (Auto) Coronavirus (PCR) SARS-CoV-2 IgG Ab Crossmatch 05/31/20 05/31/20 06/01/20 17:37 23:47 03:48 WBC RBC Hgb Hct MCV MCH MCHC RDW Lymph % (Auto) [place] % (Auto) Lymph # (Auto) [place] # (Auto) Baso # (Auto) Seg Neutrophils % Seg Neuts % (Manual) Lymphocytes % (Manual) Nucleated RBC % Seg Neutrophils # Seg Neutrophils # Man Lymphocytes # (Manual) Monocytes # (Manual) Eosinophils # (Manual) PT INR APTT D-Dimer Heparin Anti-Xa Level ABG pH POC ABG pCO2 59.7 H POC ABG pO2 73.9 L ABG pO2 ABG HCO3 ABG O2 Saturation ABG Base Excess ABG Hemoglobin ABG Oxyhemoglobin ABG Sodium ABG Potassium ABG Chloride 95.0 L ABG Glucose 256 H Oxyhemoglobin Carboxyhemoglobin Sodium Potassium Chloride Carbon Dioxide BUN Creatinine Glucose POC Glucose 168 H 178 H Lactic Acid Calcium Magnesium Ferritin Total Bilirubin Direct Bilirubin AST ALT Alkaline Phosphatase Lactate Dehydrogenase C-Reactive Protein Total Protein Albumin Triglycerides Lipase Arterial Blood Glucose 256 H Arterial Blood Ionized Calcium Urine WBC (Auto) Coronavirus (PCR) SARS-CoV-2 IgG Ab Crossmatch 06/01/20 06/01/20 06/01/20 05:01 07:47 07:47 WBC 14.4 H RBC 3.46 L Hgb 11.1 L Hct 34.3 L MCV 99 H MCH MCHC RDW Lymph % (Auto) [place] % (Auto) Lymph # (Auto) [place] # (Auto) Baso # (Auto) Seg Neutrophils % Seg Neuts % (Manual) 86.0 H Lymphocytes % (Manual) 9.0 L Nucleated RBC % Seg Neutrophils # Seg Neutrophils # Man 12.4 H Lymphocytes # (Manual) Monocytes # (Manual) Eosinophils # (Manual) PT INR APTT D-Dimer Heparin Anti-Xa Level ABG pH POC ABG pCO2 POC ABG pO2 ABG pO2 ABG HCO3 ABG O2 Saturation ABG Base Excess ABG Hemoglobin ABG Oxyhemoglobin ABG Sodium ABG Potassium ABG Chloride ABG Glucose Oxyhemoglobin Carboxyhemoglobin Sodium Potassium Chloride Carbon Dioxide BUN Creatinine Glucose POC Glucose 197 H Lactic Acid Calcium Magnesium Ferritin Total Bilirubin Direct Bilirubin AST ALT Alkaline Phosphatase Lactate Dehydrogenase C-Reactive Protein Total Protein Albumin Triglycerides 244 H Lipase Arterial Blood Glucose Arterial Blood Ionized Calcium Urine WBC (Auto) Coronavirus (PCR) SARS-CoV-2 IgG Ab Crossmatch 06/01/20 06/01/20 06/01/20 07:47 11:46 18:15 WBC RBC Hgb Hct MCV MCH MCHC RDW Lymph % (Auto) [place] % (Auto) Lymph # (Auto) [place] # (Auto) Baso # (Auto) Seg Neutrophils % Seg Neuts % (Manual) Lymphocytes % (Manual) Nucleated RBC % Seg Neutrophils # Seg Neutrophils # Man Lymphocytes # (Manual) Monocytes # (Manual) Eosinophils # (Manual) PT INR APTT D-Dimer Heparin Anti-Xa Level ABG pH POC ABG pCO2 POC ABG pO2 ABG pO2 ABG HCO3 ABG O2 Saturation ABG Base Excess ABG Hemoglobin ABG Oxyhemoglobin ABG Sodium ABG Potassium ABG Chloride ABG Glucose Oxyhemoglobin Carboxyhemoglobin Sodium Potassium Chloride 95.4 L Carbon Dioxide 35 H BUN 30 H Creatinine 0.5 L Glucose 214 H POC Glucose 181 H 221 H Lactic Acid Calcium Magnesium Ferritin Total Bilirubin Direct Bilirubin AST 54 H ALT 235 H Alkaline Phosphatase Lactate Dehydrogenase C-Reactive Protein Total Protein Albumin 2.9 L Triglycerides Lipase Arterial Blood Glucose Arterial Blood Ionized Calcium Urine WBC (Auto) Coronavirus (PCR) SARS-CoV-2 IgG Ab Crossmatch 06/01/20 06/02/20 06/02/20 23:12 04:00 05:31 WBC RBC Hgb Hct MCV MCH MCHC RDW Lymph % (Auto) [place] % (Auto) Lymph # (Auto) [place] # (Auto) Baso # (Auto) Seg Neutrophils % Seg Neuts % (Manual) Lymphocytes % (Manual) Nucleated RBC % Seg Neutrophils # Seg Neutrophils # Man Lymphocytes # (Manual) Monocytes # (Manual) Eosinophils # (Manual) PT INR APTT D-Dimer Heparin Anti-Xa Level ABG pH 7.465 H POC ABG pCO2 POC ABG pO2 ABG pO2 203.4 H ABG HCO3 41.2 H ABG O2 Saturation 99.3 H ABG Base Excess 15.1 H ABG Hemoglobin 11.5 L ABG Oxyhemoglobin ABG Sodium ABG Potassium ABG Chloride ABG Glucose Oxyhemoglobin Carboxyhemoglobin Sodium Potassium Chloride Carbon Dioxide BUN Creatinine Glucose POC Glucose 197 H 184 H Lactic Acid Calcium Magnesium Ferritin Total Bilirubin Direct Bilirubin AST ALT Alkaline Phosphatase Lactate Dehydrogenase C-Reactive Protein Total Protein Albumin Triglycerides Lipase Arterial Blood Glucose Arterial Blood Ionized Calcium Urine WBC (Auto) Coronavirus (PCR) SARS-CoV-2 IgG Ab Crossmatch 06/02/20 06/02/20 06/02/20 11:49 18:06 23:00 WBC RBC Hgb Hct MCV MCH MCHC RDW Lymph % (Auto) [place] % (Auto) Lymph # (Auto) [place] # (Auto) Baso # (Auto) Seg Neutrophils % Seg Neuts % (Manual) Lymphocytes % (Manual) Nucleated RBC % Seg Neutrophils # Seg Neutrophils # Man Lymphocytes # (Manual) Monocytes # (Manual) Eosinophils # (Manual) PT INR APTT D-Dimer Heparin Anti-Xa Level ABG pH POC ABG pCO2 POC ABG pO2 ABG pO2 ABG HCO3 ABG O2 Saturation ABG Base Excess ABG Hemoglobin ABG Oxyhemoglobin ABG Sodium ABG Potassium ABG Chloride ABG Glucose Oxyhemoglobin Carboxyhemoglobin Sodium Potassium Chloride Carbon Dioxide BUN Creatinine Glucose POC Glucose 195 H 177 H 228 H Lactic Acid Calcium Magnesium Ferritin Total Bilirubin Direct Bilirubin AST ALT Alkaline Phosphatase Lactate Dehydrogenase C-Reactive Protein Total Protein Albumin Triglycerides Lipase Arterial Blood Glucose Arterial Blood Ionized Calcium Urine WBC (Auto) Coronavirus (PCR) SARS-CoV-2 IgG Ab Crossmatch 06/03/20 06/03/20 06/03/20 03:58 05:19 12:21 WBC RBC Hgb Hct MCV MCH MCHC RDW Lymph % (Auto) [place] % (Auto) Lymph # (Auto) [place] # (Auto) Baso # (Auto) Seg Neutrophils % Seg Neuts % (Manual) Lymphocytes % (Manual) Nucleated RBC % Seg Neutrophils # Seg Neutrophils # Man Lymphocytes # (Manual) Monocytes # (Manual) Eosinophils # (Manual) PT INR APTT D-Dimer Heparin Anti-Xa Level ABG pH POC ABG pCO2 POC ABG pO2 ABG pO2 171.0 H ABG HCO3 42.8 H ABG O2 Saturation ABG Base Excess 15.6 H ABG Hemoglobin 12.3 L ABG Oxyhemoglobin ABG Sodium ABG Potassium ABG Chloride ABG Glucose Oxyhemoglobin Carboxyhemoglobin Sodium Potassium Chloride Carbon Dioxide BUN Creatinine Glucose POC Glucose 122 H 207 H Lactic Acid Calcium Magnesium Ferritin Total Bilirubin Direct Bilirubin AST ALT Alkaline Phosphatase Lactate Dehydrogenase C-Reactive Protein Total Protein Albumin Triglycerides Lipase Arterial Blood Glucose Arterial Blood Ionized Calcium Urine WBC (Auto) Coronavirus (PCR) SARS-CoV-2 IgG Ab Crossmatch 06/03/20 06/03/20 06/04/20 17:27 23:50 03:55 WBC RBC Hgb Hct MCV MCH MCHC RDW Lymph % (Auto) [place] % (Auto) Lymph # (Auto) [place] # (Auto) Baso # (Auto) Seg Neutrophils % Seg Neuts % (Manual) Lymphocytes % (Manual) Nucleated RBC % Seg Neutrophils # Seg Neutrophils # Man Lymphocytes # (Manual) Monocytes # (Manual) Eosinophils # (Manual) PT INR APTT D-Dimer Heparin Anti-Xa Level ABG pH POC ABG pCO2 POC ABG pO2 ABG pO2 117.2 H ABG HCO3 42.4 H ABG O2 Saturation ABG Base Excess 15.3 H ABG Hemoglobin 10.5 L ABG Oxyhemoglobin ABG Sodium ABG Potassium ABG Chloride ABG Glucose Oxyhemoglobin Carboxyhemoglobin Sodium Potassium Chloride Carbon Dioxide BUN Creatinine Glucose POC Glucose 157 H 214 H Lactic Acid Calcium Magnesium Ferritin Total Bilirubin Direct Bilirubin AST ALT Alkaline Phosphatase Lactate Dehydrogenase C-Reactive Protein Total Protein Albumin Triglycerides Lipase Arterial Blood Glucose Arterial Blood Ionized Calcium Urine WBC (Auto) Coronavirus (PCR) SARS-CoV-2 IgG Ab Crossmatch 06/04/20 06/04/20 06/04/20 05:49 11:41 17:30 WBC RBC Hgb Hct MCV MCH MCHC RDW Lymph % (Auto) [place] % (Auto) Lymph # (Auto) [place] # (Auto) Baso # (Auto) Seg Neutrophils % Seg Neuts % (Manual) Lymphocytes % (Manual) Nucleated RBC % Seg Neutrophils # Seg Neutrophils # Man Lymphocytes # (Manual) Monocytes # (Manual) Eosinophils # (Manual) PT INR APTT D-Dimer Heparin Anti-Xa Level ABG pH POC ABG pCO2 POC ABG pO2 ABG pO2 ABG HCO3 ABG O2 Saturation ABG Base Excess ABG Hemoglobin ABG Oxyhemoglobin ABG Sodium ABG Potassium ABG Chloride ABG Glucose Oxyhemoglobin Carboxyhemoglobin Sodium Potassium Chloride Carbon Dioxide BUN Creatinine Glucose POC Glucose 149 H 233 H 156 H Lactic Acid Calcium Magnesium Ferritin Total Bilirubin Direct Bilirubin AST ALT Alkaline Phosphatase Lactate Dehydrogenase C-Reactive Protein Total Protein Albumin Triglycerides Lipase Arterial Blood Glucose Arterial Blood Ionized Calcium Urine WBC (Auto) Coronavirus (PCR) SARS-CoV-2 IgG Ab Crossmatch 06/04/20 06/04/20 06/04/20 19:01 20:53 23:41 WBC RBC 3.18 L Hgb 10.8 L Hct 31.8 L MCV 100 H MCH 34 H MCHC RDW Lymph % (Auto) [place] % (Auto) Lymph # (Auto) [place] # (Auto) Baso # (Auto) Seg Neutrophils % Seg Neuts % (Manual) 86.0 H Lymphocytes % (Manual) 10.0 L Nucleated RBC % 1.0 H Seg Neutrophils # Seg Neutrophils # Man 8.5 H Lymphocytes # (Manual) 1.0 L Monocytes # (Manual) Eosinophils # (Manual) PT INR APTT D-Dimer Heparin Anti-Xa Level ABG pH POC ABG pCO2 POC ABG pO2 ABG pO2 ABG HCO3 ABG O2 Saturation ABG Base Excess ABG Hemoglobin ABG Oxyhemoglobin ABG Sodium ABG Potassium ABG Chloride ABG Glucose Oxyhemoglobin Carboxyhemoglobin Sodium Potassium 3.4 L D Chloride 96.5 L Carbon Dioxide 41 H* BUN 27 H Creatinine 0.5 L Glucose 173 H POC Glucose 217 H Lactic Acid Calcium Magnesium Ferritin Total Bilirubin Direct Bilirubin AST ALT Alkaline Phosphatase Lactate Dehydrogenase C-Reactive Protein Total Protein Albumin Triglycerides Lipase Arterial Blood Glucose Arterial Blood Ionized Calcium Urine WBC (Auto) Coronavirus (PCR) SARS-CoV-2 IgG Ab Crossmatch 06/05/20 06/05/20 06/05/20 06:05 11:54 12:35 WBC RBC Hgb Hct MCV MCH MCHC RDW Lymph % (Auto) [place] % (Auto) Lymph # (Auto) [place] # (Auto) Baso # (Auto) Seg Neutrophils % Seg Neuts % (Manual) Lymphocytes % (Manual) Nucleated RBC % Seg Neutrophils # Seg Neutrophils # Man Lymphocytes # (Manual) Monocytes # (Manual) Eosinophils # (Manual) PT INR APTT D-Dimer Heparin Anti-Xa Level ABG pH POC ABG pCO2 POC ABG pO2 ABG pO2 127.9 H ABG HCO3 41.1 H ABG O2 Saturation ABG Base Excess 13.0 H ABG Hemoglobin 13.4 L ABG Oxyhemoglobin ABG Sodium ABG Potassium ABG Chloride ABG Glucose Oxyhemoglobin Carboxyhemoglobin Sodium Potassium Chloride Carbon Dioxide BUN Creatinine Glucose POC Glucose 137 H 211 H Lactic Acid Calcium Magnesium Ferritin Total Bilirubin Direct Bilirubin AST ALT Alkaline Phosphatase Lactate Dehydrogenase C-Reactive Protein Total Protein Albumin Triglycerides Lipase Arterial Blood Glucose Arterial Blood Ionized Calcium Urine WBC (Auto) Coronavirus (PCR) SARS-CoV-2 IgG Ab Crossmatch 06/05/20 06/05/20 06/06/20 17:03 23:49 04:42 WBC RBC Hgb Hct MCV MCH MCHC RDW Lymph % (Auto) [place] % (Auto) Lymph # (Auto) [place] # (Auto) Baso # (Auto) Seg Neutrophils % Seg Neuts % (Manual) Lymphocytes % (Manual) Nucleated RBC % Seg Neutrophils # Seg Neutrophils # Man Lymphocytes # (Manual) Monocytes # (Manual) Eosinophils # (Manual) PT INR APTT D-Dimer Heparin Anti-Xa Level ABG pH POC ABG pCO2 56.1 H POC ABG pO2 52.5 L ABG pO2 ABG HCO3 ABG O2 Saturation ABG Base Excess ABG Hemoglobin 11.7 L ABG Oxyhemoglobin ABG Sodium ABG Potassium 3.3 L ABG Chloride 95.0 L ABG Glucose 156 H Oxyhemoglobin Carboxyhemoglobin Sodium Potassium Chloride Carbon Dioxide BUN Creatinine Glucose POC Glucose 159 H 194 H Lactic Acid Calcium Magnesium Ferritin Total Bilirubin Direct Bilirubin AST ALT Alkaline Phosphatase Lactate Dehydrogenase C-Reactive Protein Total Protein Albumin Triglycerides Lipase Arterial Blood Glucose 156 H Arterial Blood Ionized Calcium Urine WBC (Auto) Coronavirus (PCR) SARS-CoV-2 IgG Ab Crossmatch 06/06/20 06/06/20 06/06/20 05:57 12:06 17:38 WBC RBC Hgb Hct MCV MCH MCHC RDW Lymph % (Auto) [place] % (Auto) Lymph # (Auto) [place] # (Auto) Baso # (Auto) Seg Neutrophils % Seg Neuts % (Manual) Lymphocytes % (Manual) Nucleated RBC % Seg Neutrophils # Seg Neutrophils # Man Lymphocytes # (Manual) Monocytes # (Manual) Eosinophils # (Manual) PT INR APTT D-Dimer Heparin Anti-Xa Level ABG pH POC ABG pCO2 POC ABG pO2 ABG pO2 ABG HCO3 ABG O2 Saturation ABG Base Excess ABG Hemoglobin ABG Oxyhemoglobin ABG Sodium ABG Potassium ABG Chloride ABG Glucose Oxyhemoglobin Carboxyhemoglobin Sodium Potassium Chloride Carbon Dioxide BUN Creatinine Glucose POC Glucose 144 H 230 H 162 H Lactic Acid Calcium Magnesium Ferritin Total Bilirubin Direct Bilirubin AST ALT Alkaline Phosphatase Lactate Dehydrogenase C-Reactive Protein Total Protein Albumin Triglycerides Lipase Arterial Blood Glucose Arterial Blood Ionized Calcium Urine WBC (Auto) Coronavirus (PCR) SARS-CoV-2 IgG Ab Crossmatch 06/06/20 06/07/20 06/07/20 23:50 04:34 06:03 WBC RBC Hgb Hct MCV MCH MCHC RDW Lymph % (Auto) [place] % (Auto) Lymph # (Auto) [place] # (Auto) Baso # (Auto) Seg Neutrophils % Seg Neuts % (Manual) Lymphocytes % (Manual) Nucleated RBC % Seg Neutrophils # Seg Neutrophils # Man Lymphocytes # (Manual) Monocytes # (Manual) Eosinophils # (Manual) PT INR APTT D-Dimer Heparin Anti-Xa Level ABG pH 7.511 H POC ABG pCO2 53.5 H POC ABG pO2 114.5 H ABG pO2 ABG HCO3 ABG O2 Saturation ABG Base Excess ABG Hemoglobin 9.4 L ABG Oxyhemoglobin ABG Sodium 134.5 L ABG Potassium ABG Chloride 94.0 L ABG Glucose 186 H Oxyhemoglobin Carboxyhemoglobin Sodium Potassium Chloride Carbon Dioxide BUN Creatinine Glucose POC Glucose 181 H 155 H Lactic Acid Calcium Magnesium Ferritin Total Bilirubin Direct Bilirubin AST ALT Alkaline Phosphatase Lactate Dehydrogenase C-Reactive Protein Total Protein Albumin Triglycerides Lipase Arterial Blood Glucose 186 H Arterial Blood Ionized Calcium 4.5 L Urine WBC (Auto) Coronavirus (PCR) SARS-CoV-2 IgG Ab Crossmatch 06/07/20 06/07/20 06/07/20 13:41 14:58 14:58 WBC RBC 2.72 L Hgb 9.3 L Hct 27.2 L MCV 100 H MCH 34 H MCHC RDW Lymph % (Auto) [place] % (Auto) Lymph # (Auto) [place] # (Auto) Baso # (Auto) Seg Neutrophils % Seg Neuts % (Manual) Lymphocytes % (Manual) Nucleated RBC % Seg Neutrophils # Seg Neutrophils # Man Lymphocytes # (Manual) Monocytes # (Manual) Eosinophils # (Manual) PT INR APTT D-Dimer Heparin Anti-Xa Level ABG pH POC ABG pCO2 POC ABG pO2 ABG pO2 ABG HCO3 ABG O2 Saturation ABG Base Excess ABG Hemoglobin ABG Oxyhemoglobin ABG Sodium ABG Potassium ABG Chloride ABG Glucose Oxyhemoglobin Carboxyhemoglobin Sodium Potassium Chloride 93.5 L Carbon Dioxide 39 H BUN 22 H Creatinine 0.4 L Glucose 188 H POC Glucose 201 H Lactic Acid Calcium Magnesium Ferritin Total Bilirubin Direct Bilirubin AST 61 H ALT 273 H Alkaline Phosphatase Lactate Dehydrogenase C-Reactive Protein Total Protein 5.9 L Albumin 2.7 L Triglycerides Lipase Arterial Blood Glucose Arterial Blood Ionized Calcium Urine WBC (Auto) Coronavirus (PCR) SARS-CoV-2 IgG Ab Crossmatch 06/07/20 06/08/20 06/08/20 23:18 05:31 12:07 WBC RBC Hgb Hct MCV MCH MCHC RDW Lymph % (Auto) [place] % (Auto) Lymph # (Auto) [place] # (Auto) Baso # (Auto) Seg Neutrophils % Seg Neuts % (Manual) Lymphocytes % (Manual) Nucleated RBC % Seg Neutrophils # Seg Neutrophils # Man Lymphocytes # (Manual) Monocytes # (Manual) Eosinophils # (Manual) PT INR APTT D-Dimer Heparin Anti-Xa Level ABG pH POC ABG pCO2 POC ABG pO2 ABG pO2 ABG HCO3 ABG O2 Saturation ABG Base Excess ABG Hemoglobin ABG Oxyhemoglobin ABG Sodium ABG Potassium ABG Chloride ABG Glucose Oxyhemoglobin Carboxyhemoglobin Sodium Potassium Chloride Carbon Dioxide BUN Creatinine Glucose POC Glucose 214 H 129 H 179 H Lactic Acid Calcium Magnesium Ferritin Total Bilirubin Direct Bilirubin AST ALT Alkaline Phosphatase Lactate Dehydrogenase C-Reactive Protein Total Protein Albumin Triglycerides Lipase Arterial Blood Glucose Arterial Blood Ionized Calcium Urine WBC (Auto) Coronavirus (PCR) SARS-CoV-2 IgG Ab Crossmatch 06/08/20 06/08/20 06/09/20 18:18 23:35 05:42 WBC RBC Hgb Hct MCV MCH MCHC RDW Lymph % (Auto) [place] % (Auto) Lymph # (Auto) [place] # (Auto) Baso # (Auto) Seg Neutrophils % Seg Neuts % (Manual) Lymphocytes % (Manual) Nucleated RBC % Seg Neutrophils # Seg Neutrophils # Man Lymphocytes # (Manual) Monocytes # (Manual) Eosinophils # (Manual) PT INR APTT D-Dimer Heparin Anti-Xa Level ABG pH POC ABG pCO2 POC ABG pO2 ABG pO2 ABG HCO3 ABG O2 Saturation ABG Base Excess ABG Hemoglobin ABG Oxyhemoglobin ABG Sodium ABG Potassium ABG Chloride ABG Glucose Oxyhemoglobin Carboxyhemoglobin Sodium Potassium Chloride Carbon Dioxide BUN Creatinine Glucose POC Glucose 172 H 177 H 137 H Lactic Acid Calcium Magnesium Ferritin Total Bilirubin Direct Bilirubin AST ALT Alkaline Phosphatase Lactate Dehydrogenase C-Reactive Protein Total Protein Albumin Triglycerides Lipase Arterial Blood Glucose Arterial Blood Ionized Calcium Urine WBC (Auto) Coronavirus (PCR) SARS-CoV-2 IgG Ab Crossmatch 06/09/20 06/09/20 06/09/20 06:20 07:55 07:55 WBC 12.4 H RBC 3.26 L Hgb 11.1 L Hct 33.4 L D MCV 102 H MCH 34 H MCHC RDW Lymph % (Auto) [place] % (Auto) Lymph # (Auto) [place] # (Auto) Baso # (Auto) Seg Neutrophils % Seg Neuts % (Manual) Lymphocytes % (Manual) Nucleated RBC % Seg Neutrophils # Seg Neutrophils # Man Lymphocytes # (Manual) Monocytes # (Manual) Eosinophils # (Manual) PT INR APTT D-Dimer Heparin Anti-Xa Level ABG pH 7.466 H POC ABG pCO2 50.7 H POC ABG pO2 53.0 L ABG pO2 ABG HCO3 ABG O2 Saturation ABG Base Excess ABG Hemoglobin ABG Oxyhemoglobin ABG Sodium ABG Potassium 2.9 L ABG Chloride 93.0 L ABG Glucose 138 H Oxyhemoglobin Carboxyhemoglobin Sodium Potassium 3.0 L Chloride 92.3 L Carbon Dioxide 37 H BUN 21 H Creatinine 0.6 L Glucose 120 H POC Glucose Lactic Acid Calcium Magnesium Ferritin Total Bilirubin Direct Bilirubin AST ALT Alkaline Phosphatase Lactate Dehydrogenase C-Reactive Protein Total Protein Albumin Triglycerides Lipase Arterial Blood Glucose 138 H Arterial Blood Ionized Calcium 4.5 L Urine WBC (Auto) Coronavirus (PCR) SARS-CoV-2 IgG Ab Crossmatch 06/09/20 06/09/20 06/10/20 11:22 18:32 04:46 WBC RBC Hgb Hct MCV MCH MCHC RDW Lymph % (Auto) [place] % (Auto) Lymph # (Auto) [place] # (Auto) Baso # (Auto) Seg Neutrophils % Seg Neuts % (Manual) Lymphocytes % (Manual) Nucleated RBC % Seg Neutrophils # Seg Neutrophils # Man Lymphocytes # (Manual) Monocytes # (Manual) Eosinophils # (Manual) PT INR APTT D-Dimer Heparin Anti-Xa Level ABG pH 7.501 H POC ABG pCO2 POC ABG pO2 126.5 H ABG pO2 ABG HCO3 ABG O2 Saturation ABG Base Excess ABG Hemoglobin 10.3 L ABG Oxyhemoglobin ABG Sodium ABG Potassium ABG Chloride ABG Glucose 220 H Oxyhemoglobin Carboxyhemoglobin Sodium Potassium Chloride Carbon Dioxide BUN Creatinine Glucose POC Glucose 117 H 121 H Lactic Acid Calcium Magnesium Ferritin Total Bilirubin Direct Bilirubin AST ALT Alkaline Phosphatase Lactate Dehydrogenase C-Reactive Protein Total Protein Albumin Triglycerides Lipase Arterial Blood Glucose 220 H Arterial Blood Ionized Calcium Urine WBC (Auto) Coronavirus (PCR) SARS-CoV-2 IgG Ab Crossmatch 06/10/20 06/10/20 06/10/20 05:30 09:38 12:03 WBC RBC Hgb Hct MCV MCH MCHC RDW Lymph % (Auto) [place] % (Auto) Lymph # (Auto) [place] # (Auto) Baso # (Auto) Seg Neutrophils % Seg Neuts % (Manual) Lymphocytes % (Manual) Nucleated RBC % Seg Neutrophils # Seg Neutrophils # Man Lymphocytes # (Manual) Monocytes # (Manual) Eosinophils # (Manual) PT INR APTT D-Dimer Heparin Anti-Xa Level ABG pH POC ABG pCO2 POC ABG pO2 ABG pO2 ABG HCO3 ABG O2 Saturation ABG Base Excess ABG Hemoglobin ABG Oxyhemoglobin ABG Sodium ABG Potassium ABG Chloride ABG Glucose Oxyhemoglobin Carboxyhemoglobin Sodium Potassium Chloride Carbon Dioxide BUN Creatinine Glucose POC Glucose 181 H 204 H Lactic Acid Calcium Magnesium Ferritin Total Bilirubin Direct Bilirubin AST ALT Alkaline Phosphatase Lactate Dehydrogenase C-Reactive Protein Total Protein Albumin Triglycerides 738 H Lipase Arterial Blood Glucose Arterial Blood Ionized Calcium Urine WBC (Auto) Coronavirus (PCR) SARS-CoV-2 IgG Ab Crossmatch 06/10/20 06/11/20 06/11/20 17:17 00:04 04:38 WBC RBC Hgb Hct MCV MCH MCHC RDW Lymph % (Auto) [place] % (Auto) Lymph # (Auto) [place] # (Auto) Baso # (Auto) Seg Neutrophils % Seg Neuts % (Manual) Lymphocytes % (Manual) Nucleated RBC % Seg Neutrophils # Seg Neutrophils # Man Lymphocytes # (Manual) Monocytes # (Manual) Eosinophils # (Manual) PT INR APTT D-Dimer Heparin Anti-Xa Level ABG pH 7.479 H POC ABG pCO2 POC ABG pO2 76.7 L ABG pO2 ABG HCO3 ABG O2 Saturation ABG Base Excess ABG Hemoglobin 9.8 L ABG Oxyhemoglobin ABG Sodium 135.8 L ABG Potassium ABG Chloride ABG Glucose 238 H Oxyhemoglobin Carboxyhemoglobin Sodium Potassium Chloride Carbon Dioxide BUN Creatinine Glucose POC Glucose 156 H 178 H Lactic Acid Calcium Magnesium Ferritin Total Bilirubin Direct Bilirubin AST ALT Alkaline Phosphatase Lactate Dehydrogenase C-Reactive Protein Total Protein Albumin Triglycerides Lipase Arterial Blood Glucose 238 H Arterial Blood Ionized Calcium Urine WBC (Auto) Coronavirus (PCR) SARS-CoV-2 IgG Ab Crossmatch 06/11/20 06/11/20 06/11/20 05:21 06:52 11:50 WBC RBC Hgb Hct MCV MCH MCHC RDW Lymph % (Auto) [place] % (Auto) Lymph # (Auto) [place] # (Auto) Baso # (Auto) Seg Neutrophils % Seg Neuts % (Manual) Lymphocytes % (Manual) Nucleated RBC % Seg Neutrophils # Seg Neutrophils # Man Lymphocytes # (Manual) Monocytes # (Manual) Eosinophils # (Manual) PT INR APTT D-Dimer Heparin Anti-Xa Level ABG pH POC ABG pCO2 POC ABG pO2 ABG pO2 ABG HCO3 ABG O2 Saturation ABG Base Excess ABG Hemoglobin ABG Oxyhemoglobin ABG Sodium ABG Potassium ABG Chloride ABG Glucose Oxyhemoglobin Carboxyhemoglobin Sodium Potassium Chloride Carbon Dioxide BUN Creatinine Glucose POC Glucose 215 H 187 H Lactic Acid Calcium Magnesium Ferritin Total Bilirubin Direct Bilirubin AST ALT Alkaline Phosphatase Lactate Dehydrogenase C-Reactive Protein Total Protein Albumin Triglycerides 331 H Lipase Arterial Blood Glucose Arterial Blood Ionized Calcium Urine WBC (Auto) Coronavirus (PCR) SARS-CoV-2 IgG Ab Crossmatch 06/11/20 06/11/20 06/12/20 17:49 23:35 04:52 WBC RBC Hgb Hct MCV MCH MCHC RDW Lymph % (Auto) [place] % (Auto) Lymph # (Auto) [place] # (Auto) Baso # (Auto) Seg Neutrophils % Seg Neuts % (Manual) Lymphocytes % (Manual) Nucleated RBC % Seg Neutrophils # Seg Neutrophils # Man Lymphocytes # (Manual) Monocytes # (Manual) Eosinophils # (Manual) PT INR APTT D-Dimer Heparin Anti-Xa Level ABG pH 7.486 H POC ABG pCO2 POC ABG pO2 ABG pO2 ABG HCO3 ABG O2 Saturation ABG Base Excess ABG Hemoglobin 9.4 L ABG Oxyhemoglobin ABG Sodium ABG Potassium 3.2 L ABG Chloride ABG Glucose 209 H Oxyhemoglobin Carboxyhemoglobin Sodium Potassium Chloride Carbon Dioxide BUN Creatinine Glucose POC Glucose 211 H 200 H Lactic Acid Calcium Magnesium Ferritin Total Bilirubin Direct Bilirubin AST ALT Alkaline Phosphatase Lactate Dehydrogenase C-Reactive Protein Total Protein Albumin Triglycerides Lipase Arterial Blood Glucose 209 H Arterial Blood Ionized Calcium Urine WBC (Auto) Coronavirus (PCR) SARS-CoV-2 IgG Ab Crossmatch 06/12/20 06/12/20 06/12/20 05:13 11:47 18:33 WBC RBC Hgb Hct MCV MCH MCHC RDW Lymph % (Auto) [place] % (Auto) Lymph # (Auto) [place] # (Auto) Baso # (Auto) Seg Neutrophils % Seg Neuts % (Manual) Lymphocytes % (Manual) Nucleated RBC % Seg Neutrophils # Seg Neutrophils # Man Lymphocytes # (Manual) Monocytes # (Manual) Eosinophils # (Manual) PT INR APTT D-Dimer Heparin Anti-Xa Level ABG pH POC ABG pCO2 POC ABG pO2 ABG pO2 ABG HCO3 ABG O2 Saturation ABG Base Excess ABG Hemoglobin ABG Oxyhemoglobin ABG Sodium ABG Potassium ABG Chloride ABG Glucose Oxyhemoglobin Carboxyhemoglobin Sodium Potassium Chloride Carbon Dioxide BUN Creatinine Glucose POC Glucose 174 H 214 H 194 H Lactic Acid Calcium Magnesium Ferritin Total Bilirubin Direct Bilirubin AST ALT Alkaline Phosphatase Lactate Dehydrogenase C-Reactive Protein Total Protein Albumin Triglycerides Lipase Arterial Blood Glucose Arterial Blood Ionized Calcium Urine WBC (Auto) Coronavirus (PCR) SARS-CoV-2 IgG Ab Crossmatch 06/12/20 06/13/20 06/13/20 23:49 05:41 12:30 WBC RBC Hgb Hct MCV MCH MCHC RDW Lymph % (Auto) [place] % (Auto) Lymph # (Auto) [place] # (Auto) Baso # (Auto) Seg Neutrophils % Seg Neuts % (Manual) Lymphocytes % (Manual) Nucleated RBC % Seg Neutrophils # Seg Neutrophils # Man Lymphocytes # (Manual) Monocytes # (Manual) Eosinophils # (Manual) PT INR APTT D-Dimer Heparin Anti-Xa Level ABG pH POC ABG pCO2 POC ABG pO2 ABG pO2 ABG HCO3 ABG O2 Saturation ABG Base Excess ABG Hemoglobin ABG Oxyhemoglobin ABG Sodium ABG Potassium ABG Chloride ABG Glucose Oxyhemoglobin Carboxyhemoglobin Sodium Potassium Chloride Carbon Dioxide BUN Creatinine Glucose POC Glucose 160 H 150 H 181 H Lactic Acid Calcium Magnesium Ferritin Total Bilirubin Direct Bilirubin AST ALT Alkaline Phosphatase Lactate Dehydrogenase C-Reactive Protein Total Protein Albumin Triglycerides Lipase Arterial Blood Glucose Arterial Blood Ionized Calcium Urine WBC (Auto) Coronavirus (PCR) SARS-CoV-2 IgG Ab Crossmatch 06/13/20 06/13/20 06/13/20 14:14 17:48 23:27 WBC 12.8 H RBC 2.33 L Hgb 8.0 L Hct 23.3 L MCV 100 H MCH 34 H MCHC RDW 15.7 H Lymph % (Auto) [place] % (Auto) Lymph # (Auto) [place] # (Auto) Baso # (Auto) Seg Neutrophils % Seg Neuts % (Manual) 85.0 H Lymphocytes % (Manual) 10.0 L Nucleated RBC % Seg Neutrophils # Seg Neutrophils # Man 10.9 H Lymphocytes # (Manual) Monocytes # (Manual) Eosinophils # (Manual) PT INR APTT D-Dimer Heparin Anti-Xa Level ABG pH POC ABG pCO2 POC ABG pO2 ABG pO2 ABG HCO3 ABG O2 Saturation ABG Base Excess ABG Hemoglobin ABG Oxyhemoglobin ABG Sodium ABG Potassium ABG Chloride ABG Glucose Oxyhemoglobin Carboxyhemoglobin Sodium Potassium Chloride Carbon Dioxide BUN Creatinine Glucose POC Glucose 173 H 154 H Lactic Acid Calcium Magnesium Ferritin Total Bilirubin Direct Bilirubin AST ALT Alkaline Phosphatase Lactate Dehydrogenase C-Reactive Protein Total Protein Albumin Triglycerides Lipase Arterial Blood Glucose Arterial Blood Ionized Calcium Urine WBC (Auto) Coronavirus (PCR) SARS-CoV-2 IgG Ab Crossmatch 06/14/20 06/14/20 06/14/20 03:58 05:21 07:15 WBC 26.2 H RBC 2.97 L Hgb 9.7 L Hct 29.9 L D MCV 101 H MCH 33 H MCHC RDW 15.3 H Lymph % (Auto) [place] % (Auto) Lymph # (Auto) [place] # (Auto) Baso # (Auto) Seg Neutrophils % Seg Neuts % (Manual) 79.0 H Lymphocytes % (Manual) 5.0 L Nucleated RBC % 3.0 H Seg Neutrophils # Seg Neutrophils # Man 20.7 H Lymphocytes # (Manual) Monocytes # (Manual) 1.3 H Eosinophils # (Manual) PT INR APTT D-Dimer Heparin Anti-Xa Level ABG pH POC ABG pCO2 51.5 H POC ABG pO2 70.0 L ABG pO2 ABG HCO3 ABG O2 Saturation ABG Base Excess ABG Hemoglobin 10.1 L ABG Oxyhemoglobin ABG Sodium 131.5 L ABG Potassium 3.1 L ABG Chloride 93.0 L ABG Glucose 188 H Oxyhemoglobin Carboxyhemoglobin Sodium Potassium Chloride Carbon Dioxide BUN Creatinine Glucose POC Glucose 147 H Lactic Acid Calcium Magnesium Ferritin Total Bilirubin Direct Bilirubin AST ALT Alkaline Phosphatase Lactate Dehydrogenase C-Reactive Protein Total Protein Albumin Triglycerides Lipase Arterial Blood Glucose 188 H Arterial Blood Ionized Calcium Urine WBC (Auto) Coronavirus (PCR) SARS-CoV-2 IgG Ab Crossmatch 06/14/20 06/14/20 06/14/20 07:15 11:30 11:50 WBC RBC Hgb Hct MCV MCH MCHC RDW Lymph % (Auto) [place] % (Auto) Lymph # (Auto) [place] # (Auto) Baso # (Auto) Seg Neutrophils % Seg Neuts % (Manual) Lymphocytes % (Manual) Nucleated RBC % Seg Neutrophils # Seg Neutrophils # Man Lymphocytes # (Manual) Monocytes # (Manual) Eosinophils # (Manual) PT INR APTT D-Dimer Heparin Anti-Xa Level ABG pH POC ABG pCO2 POC ABG pO2 ABG pO2 ABG HCO3 ABG O2 Saturation ABG Base Excess ABG Hemoglobin ABG Oxyhemoglobin ABG Sodium ABG Potassium ABG Chloride ABG Glucose Oxyhemoglobin Carboxyhemoglobin Sodium 135 L Potassium 3.5 L Chloride 90.4 L Carbon Dioxide 38 H BUN Creatinine 0.5 L Glucose 190 H POC Glucose 176 H Lactic Acid Calcium Magnesium Ferritin 1496.0 H Total Bilirubin Direct Bilirubin AST ALT 81 H Alkaline Phosphatase Lactate Dehydrogenase C-Reactive Protein Total Protein Albumin 2.9 L Triglycerides Lipase Arterial Blood Glucose Arterial Blood Ionized Calcium Urine WBC (Auto) Coronavirus (PCR) SARS-CoV-2 IgG Ab Crossmatch 06/14/20 06/15/20 06/15/20 23:31 04:00 05:00 WBC RBC Hgb Hct MCV MCH MCHC RDW Lymph % (Auto) [place] % (Auto) Lymph # (Auto) [place] # (Auto) Baso # (Auto) Seg Neutrophils % Seg Neuts % (Manual) Lymphocytes % (Manual) Nucleated RBC % Seg Neutrophils # Seg Neutrophils # Man Lymphocytes # (Manual) Monocytes # (Manual) Eosinophils # (Manual) PT INR APTT D-Dimer Heparin Anti-Xa Level ABG pH POC ABG pCO2 POC ABG pO2 ABG pO2 ABG HCO3 ABG O2 Saturation ABG Base Excess ABG Hemoglobin ABG Oxyhemoglobin ABG Sodium ABG Potassium ABG Chloride ABG Glucose Oxyhemoglobin Carboxyhemoglobin Sodium 133 L Potassium Chloride 91.1 L Carbon Dioxide 34 H BUN Creatinine 0.4 L Glucose 159 H POC Glucose 200 H Lactic Acid Calcium Magnesium Ferritin Total Bilirubin 2.00 H Direct Bilirubin AST 47 H ALT 77 H Alkaline Phosphatase Lactate Dehydrogenase C-Reactive Protein Total Protein Albumin 2.6 L Triglycerides 152 H Lipase Arterial Blood Glucose Arterial Blood Ionized Calcium Urine WBC (Auto) Coronavirus (PCR) SARS-CoV-2 IgG Ab Crossmatch 06/15/20 06/15/20 06/15/20 05:35 06:27 11:38 WBC RBC Hgb Hct MCV MCH MCHC RDW Lymph % (Auto) [place] % (Auto) Lymph # (Auto) [place] # (Auto) Baso # (Auto) Seg Neutrophils % Seg Neuts % (Manual) Lymphocytes % (Manual) Nucleated RBC % Seg Neutrophils # Seg Neutrophils # Man Lymphocytes # (Manual) Monocytes # (Manual) Eosinophils # (Manual) PT INR APTT D-Dimer Heparin Anti-Xa Level ABG pH POC ABG pCO2 61.0 H POC ABG pO2 67.9 L ABG pO2 ABG HCO3 ABG O2 Saturation ABG Base Excess ABG Hemoglobin 10.4 L ABG Oxyhemoglobin ABG Sodium 132.7 L ABG Potassium 3.3 L ABG Chloride 92.0 L ABG Glucose 158 H Oxyhemoglobin Carboxyhemoglobin Sodium Potassium Chloride Carbon Dioxide BUN Creatinine Glucose POC Glucose 148 H 197 H Lactic Acid Calcium Magnesium Ferritin Total Bilirubin Direct Bilirubin AST ALT Alkaline Phosphatase Lactate Dehydrogenase C-Reactive Protein Total Protein Albumin Triglycerides Lipase Arterial Blood Glucose 158 H Arterial Blood Ionized Calcium Urine WBC (Auto) Coronavirus (PCR) SARS-CoV-2 IgG Ab Crossmatch 06/15/20 06/15/20 06/16/20 17:29 Unknown 00:01 WBC 20.7 H RBC 2.57 L Hgb 8.9 L Hct 25.8 L MCV 101 H MCH 35 H MCHC 35 H RDW 16.0 H Lymph % (Auto) [place] % (Auto) Lymph # (Auto) [place] # (Auto) Baso # (Auto) Seg Neutrophils % Seg Neuts % (Manual) 83.0 H Lymphocytes % (Manual) 8.0 L Nucleated RBC % Seg Neutrophils # Seg Neutrophils # Man 17.2 H Lymphocytes # (Manual) Monocytes # (Manual) 1.2 H Eosinophils # (Manual) PT INR APTT D-Dimer Heparin Anti-Xa Level ABG pH POC ABG pCO2 POC ABG pO2 ABG pO2 ABG HCO3 ABG O2 Saturation ABG Base Excess ABG Hemoglobin ABG Oxyhemoglobin ABG Sodium ABG Potassium ABG Chloride ABG Glucose Oxyhemoglobin Carboxyhemoglobin Sodium Potassium Chloride Carbon Dioxide BUN Creatinine Glucose POC Glucose 231 H 257 H Lactic Acid Calcium Magnesium Ferritin Total Bilirubin Direct Bilirubin AST ALT Alkaline Phosphatase Lactate Dehydrogenase C-Reactive Protein Total Protein Albumin Triglycerides Lipase Arterial Blood Glucose Arterial Blood Ionized Calcium Urine WBC (Auto) Coronavirus (PCR) SARS-CoV-2 IgG Ab Crossmatch 06/16/20 06/16/20 06/16/20 04:00 04:00 05:22 WBC 13.8 H RBC 2.03 L Hgb 7.6 L Hct 20.7 L MCV 102 H MCH 37 H MCHC 37 H RDW 16.2 H Lymph % (Auto) 4.4 L [place] % (Auto) Lymph # (Auto) 0.6 L [place] # (Auto) Baso # (Auto) Seg Neutrophils % Seg Neuts % (Manual) Lymphocytes % (Manual) Nucleated RBC % Seg Neutrophils # 12.7 H Seg Neutrophils # Man Lymphocytes # (Manual) Monocytes # (Manual) Eosinophils # (Manual) PT INR APTT D-Dimer Heparin Anti-Xa Level ABG pH POC ABG pCO2 POC ABG pO2 ABG pO2 ABG HCO3 ABG O2 Saturation ABG Base Excess ABG Hemoglobin ABG Oxyhemoglobin ABG Sodium ABG Potassium ABG Chloride ABG Glucose Oxyhemoglobin Carboxyhemoglobin Sodium 130 L Potassium Chloride 88.9 L Carbon Dioxide 36 H BUN Creatinine 0.3 L Glucose 276 H POC Glucose 250 H Lactic Acid Calcium Magnesium Ferritin Total Bilirubin Direct Bilirubin AST ALT Alkaline Phosphatase Lactate Dehydrogenase C-Reactive Protein Total Protein Albumin Triglycerides Lipase Arterial Blood Glucose Arterial Blood Ionized Calcium Urine WBC (Auto) Coronavirus (PCR) SARS-CoV-2 IgG Ab Crossmatch 06/16/20 06/16/20 06/17/20 12:44 18:18 00:39 WBC RBC Hgb Hct MCV MCH MCHC RDW Lymph % (Auto) [place] % (Auto) Lymph # (Auto) [place] # (Auto) Baso # (Auto) Seg Neutrophils % Seg Neuts % (Manual) Lymphocytes % (Manual) Nucleated RBC % Seg Neutrophils # Seg Neutrophils # Man Lymphocytes # (Manual) Monocytes # (Manual) Eosinophils # (Manual) PT INR APTT D-Dimer Heparin Anti-Xa Level ABG pH POC ABG pCO2 POC ABG pO2 ABG pO2 ABG HCO3 ABG O2 Saturation ABG Base Excess ABG Hemoglobin ABG Oxyhemoglobin ABG Sodium ABG Potassium ABG Chloride ABG Glucose Oxyhemoglobin Carboxyhemoglobin Sodium Potassium Chloride Carbon Dioxide BUN Creatinine Glucose POC Glucose 279 H 239 H 247 H Lactic Acid Calcium Magnesium Ferritin Total Bilirubin Direct Bilirubin AST ALT Alkaline Phosphatase Lactate Dehydrogenase C-Reactive Protein Total Protein Albumin Triglycerides Lipase Arterial Blood Glucose Arterial Blood Ionized Calcium Urine WBC (Auto) Coronavirus (PCR) SARS-CoV-2 IgG Ab Crossmatch 06/17/20 06/17/20 06/17/20 03:40 04:08 10:54 WBC RBC Hgb Hct MCV MCH MCHC RDW Lymph % (Auto) [place] % (Auto) Lymph # (Auto) [place] # (Auto) Baso # (Auto) Seg Neutrophils % Seg Neuts % (Manual) Lymphocytes % (Manual) Nucleated RBC % Seg Neutrophils # Seg Neutrophils # Man Lymphocytes # (Manual) Monocytes # (Manual) Eosinophils # (Manual) PT INR APTT D-Dimer Heparin Anti-Xa Level ABG pH POC ABG pCO2 65.7 H POC ABG pO2 ABG pO2 ABG HCO3 ABG O2 Saturation ABG Base Excess ABG Hemoglobin 11.9 L ABG Oxyhemoglobin ABG Sodium ABG Potassium ABG Chloride 93.0 L ABG Glucose 244 H Oxyhemoglobin Carboxyhemoglobin Sodium Potassium Chloride Carbon Dioxide BUN Creatinine Glucose POC Glucose 221 H 248 H Lactic Acid Calcium Magnesium Ferritin Total Bilirubin Direct Bilirubin AST ALT Alkaline Phosphatase Lactate Dehydrogenase C-Reactive Protein Total Protein Albumin Triglycerides Lipase Arterial Blood Glucose 244 H Arterial Blood Ionized Calcium Urine WBC (Auto) Coronavirus (PCR) SARS-CoV-2 IgG Ab Crossmatch 06/17/20 06/17/20 06/17/20 17:47 23:11 23:29 WBC RBC Hgb Hct MCV MCH MCHC RDW Lymph % (Auto) [place] % (Auto) Lymph # (Auto) [place] # (Auto) Baso # (Auto) Seg Neutrophils % Seg Neuts % (Manual) Lymphocytes % (Manual) Nucleated RBC % Seg Neutrophils # Seg Neutrophils # Man Lymphocytes # (Manual) Monocytes # (Manual) Eosinophils # (Manual) PT INR APTT D-Dimer Heparin Anti-Xa Level ABG pH POC ABG pCO2 85.2 H POC ABG pO2 48.4 L ABG pO2 ABG HCO3 ABG O2 Saturation ABG Base Excess ABG Hemoglobin 8.0 L ABG Oxyhemoglobin ABG Sodium ABG Potassium ABG Chloride 95.0 L ABG Glucose 292 H Oxyhemoglobin Carboxyhemoglobin Sodium Potassium Chloride Carbon Dioxide BUN Creatinine Glucose POC Glucose 245 H 252 H Lactic Acid Calcium Magnesium Ferritin Total Bilirubin Direct Bilirubin AST ALT Alkaline Phosphatase Lactate Dehydrogenase C-Reactive Protein Total Protein Albumin Triglycerides Lipase Arterial Blood Glucose 292 H Arterial Blood Ionized Calcium Urine WBC (Auto) Coronavirus (PCR) SARS-CoV-2 IgG Ab Crossmatch 06/18/20 06/18/20 06/18/20 03:14 05:34 11:47 WBC RBC Hgb Hct MCV MCH MCHC RDW Lymph % (Auto) [place] % (Auto) Lymph # (Auto) [place] # (Auto) Baso # (Auto) Seg Neutrophils % Seg Neuts % (Manual) Lymphocytes % (Manual) Nucleated RBC % Seg Neutrophils # Seg Neutrophils # Man Lymphocytes # (Manual) Monocytes # (Manual) Eosinophils # (Manual) PT INR APTT D-Dimer Heparin Anti-Xa Level ABG pH POC ABG pCO2 65.4 H POC ABG pO2 160.7 H ABG pO2 ABG HCO3 ABG O2 Saturation ABG Base Excess ABG Hemoglobin 7.8 L ABG Oxyhemoglobin ABG Sodium ABG Potassium ABG Chloride 95.0 L ABG Glucose 251 H Oxyhemoglobin Carboxyhemoglobin Sodium Potassium Chloride Carbon Dioxide BUN Creatinine Glucose POC Glucose 243 H 263 H Lactic Acid Calcium Magnesium Ferritin Total Bilirubin Direct Bilirubin AST ALT Alkaline Phosphatase Lactate Dehydrogenase C-Reactive Protein Total Protein Albumin Triglycerides Lipase Arterial Blood Glucose 251 H Arterial Blood Ionized Calcium Urine WBC (Auto) Coronavirus (PCR) SARS-CoV-2 IgG Ab Crossmatch 06/18/20 06/18/20 06/19/20 17:31 23:33 04:32 WBC RBC Hgb Hct MCV MCH MCHC RDW Lymph % (Auto) [place] % (Auto) Lymph # (Auto) [place] # (Auto) Baso # (Auto) Seg Neutrophils % Seg Neuts % (Manual) Lymphocytes % (Manual) Nucleated RBC % Seg Neutrophils # Seg Neutrophils # Man Lymphocytes # (Manual) Monocytes # (Manual) Eosinophils # (Manual) PT INR APTT D-Dimer Heparin Anti-Xa Level ABG pH POC ABG pCO2 83.1 H POC ABG pO2 65.8 L ABG pO2 ABG HCO3 ABG O2 Saturation ABG Base Excess ABG Hemoglobin 8.9 L ABG Oxyhemoglobin ABG Sodium ABG Potassium ABG Chloride 96.0 L ABG Glucose 297 H Oxyhemoglobin Carboxyhemoglobin Sodium Potassium Chloride Carbon Dioxide BUN Creatinine Glucose POC Glucose 286 H 238 H Lactic Acid Calcium Magnesium Ferritin Total Bilirubin Direct Bilirubin AST ALT Alkaline Phosphatase Lactate Dehydrogenase C-Reactive Protein Total Protein Albumin Triglycerides Lipase Arterial Blood Glucose 297 H Arterial Blood Ionized Calcium Urine WBC (Auto) Coronavirus (PCR) SARS-CoV-2 IgG Ab Crossmatch 06/19/20 06/19/20 06/19/20 05:55 11:20 17:12 WBC RBC Hgb Hct MCV MCH MCHC RDW Lymph % (Auto) [place] % (Auto) Lymph # (Auto) [place] # (Auto) Baso # (Auto) Seg Neutrophils % Seg Neuts % (Manual) Lymphocytes % (Manual) Nucleated RBC % Seg Neutrophils # Seg Neutrophils # Man Lymphocytes # (Manual) Monocytes # (Manual) Eosinophils # (Manual) PT INR APTT D-Dimer Heparin Anti-Xa Level ABG pH POC ABG pCO2 POC ABG pO2 ABG pO2 ABG HCO3 ABG O2 Saturation ABG Base Excess ABG Hemoglobin ABG Oxyhemoglobin ABG Sodium ABG Potassium ABG Chloride ABG Glucose Oxyhemoglobin Carboxyhemoglobin Sodium Potassium Chloride Carbon Dioxide BUN Creatinine Glucose POC Glucose 274 H 282 H 298 H Lactic Acid Calcium Magnesium Ferritin Total Bilirubin Direct Bilirubin AST ALT Alkaline Phosphatase Lactate Dehydrogenase C-Reactive Protein Total Protein Albumin Triglycerides Lipase Arterial Blood Glucose Arterial Blood Ionized Calcium Urine WBC (Auto) Coronavirus (PCR) SARS-CoV-2 IgG Ab Crossmatch 06/19/20 06/20/20 06/20/20 23:08 03:33 06:01 WBC RBC Hgb Hct MCV MCH MCHC RDW Lymph % (Auto) [place] % (Auto) Lymph # (Auto) [place] # (Auto) Baso # (Auto) Seg Neutrophils % Seg Neuts % (Manual) Lymphocytes % (Manual) Nucleated RBC % Seg Neutrophils # Seg Neutrophils # Man Lymphocytes # (Manual) Monocytes # (Manual) Eosinophils # (Manual) PT INR APTT D-Dimer Heparin Anti-Xa Level ABG pH POC ABG pCO2 POC ABG pO2 ABG pO2 69.9 L ABG HCO3 50.8 H ABG O2 Saturation ABG Base Excess 24.2 H ABG Hemoglobin 5.8 L ABG Oxyhemoglobin ABG Sodium ABG Potassium ABG Chloride ABG Glucose Oxyhemoglobin Carboxyhemoglobin Sodium Potassium Chloride Carbon Dioxide BUN Creatinine Glucose POC Glucose 293 H 182 H Lactic Acid Calcium Magnesium Ferritin Total Bilirubin Direct Bilirubin AST ALT Alkaline Phosphatase Lactate Dehydrogenase C-Reactive Protein Total Protein Albumin Triglycerides Lipase Arterial Blood Glucose Arterial Blood Ionized Calcium Urine WBC (Auto) Coronavirus (PCR) SARS-CoV-2 IgG Ab Crossmatch 06/20/20 06/20/20 06/20/20 11:47 17:46 23:37 WBC RBC Hgb Hct MCV MCH MCHC RDW Lymph % (Auto) [place] % (Auto) Lymph # (Auto) [place] # (Auto) Baso # (Auto) Seg Neutrophils % Seg Neuts % (Manual) Lymphocytes % (Manual) Nucleated RBC % Seg Neutrophils # Seg Neutrophils # Man Lymphocytes # (Manual) Monocytes # (Manual) Eosinophils # (Manual) PT INR APTT D-Dimer Heparin Anti-Xa Level ABG pH POC ABG pCO2 POC ABG pO2 ABG pO2 ABG HCO3 ABG O2 Saturation ABG Base Excess ABG Hemoglobin ABG Oxyhemoglobin ABG Sodium ABG Potassium ABG Chloride ABG Glucose Oxyhemoglobin Carboxyhemoglobin Sodium Potassium Chloride Carbon Dioxide BUN Creatinine Glucose POC Glucose 170 H 215 H 256 H Lactic Acid Calcium Magnesium Ferritin Total Bilirubin Direct Bilirubin AST ALT Alkaline Phosphatase Lactate Dehydrogenase C-Reactive Protein Total Protein Albumin Triglycerides Lipase Arterial Blood Glucose Arterial Blood Ionized Calcium Urine WBC (Auto) Coronavirus (PCR) SARS-CoV-2 IgG Ab Crossmatch 06/21/20 06/21/20 06/21/20 04:00 05:14 05:51 WBC RBC Hgb Hct MCV MCH MCHC RDW Lymph % (Auto) [place] % (Auto) Lymph # (Auto) [place] # (Auto) Baso # (Auto) Seg Neutrophils % Seg Neuts % (Manual) Lymphocytes % (Manual) Nucleated RBC % Seg Neutrophils # Seg Neutrophils # Man Lymphocytes # (Manual) Monocytes # (Manual) Eosinophils # (Manual) PT INR APTT D-Dimer Heparin Anti-Xa Level ABG pH 7.474 H POC ABG pCO2 POC ABG pO2 ABG pO2 ABG HCO3 52.1 H ABG O2 Saturation ABG Base Excess 23.3 H ABG Hemoglobin 5.3 L ABG Oxyhemoglobin ABG Sodium ABG Potassium ABG Chloride ABG Glucose Oxyhemoglobin 93.8 L Carboxyhemoglobin Sodium Potassium Chloride Carbon Dioxide BUN Creatinine Glucose POC Glucose 122 H 129 H Lactic Acid Calcium Magnesium Ferritin Total Bilirubin Direct Bilirubin AST ALT Alkaline Phosphatase Lactate Dehydrogenase C-Reactive Protein Total Protein Albumin Triglycerides Lipase Arterial Blood Glucose Arterial Blood Ionized Calcium Urine WBC (Auto) Coronavirus (PCR) SARS-CoV-2 IgG Ab Crossmatch 06/21/20 06/21/20 06/21/20 11:00 11:00 11:42 WBC 14.2 H RBC 1.85 L Hgb 6.2 L Hct 19.5 L* MCV 105 H MCH 34 H MCHC RDW 18.0 H Lymph % (Auto) [place] % (Auto) Lymph # (Auto) [place] # (Auto) Baso # (Auto) Seg Neutrophils % Seg Neuts % (Manual) Lymphocytes % (Manual) Nucleated RBC % Seg Neutrophils # Seg Neutrophils # Man Lymphocytes # (Manual) Monocytes # (Manual) Eosinophils # (Manual) PT INR APTT D-Dimer Heparin Anti-Xa Level ABG pH POC ABG pCO2 POC ABG pO2 ABG pO2 ABG HCO3 ABG O2 Saturation ABG Base Excess ABG Hemoglobin ABG Oxyhemoglobin ABG Sodium ABG Potassium ABG Chloride ABG Glucose Oxyhemoglobin Carboxyhemoglobin Sodium 147 H Potassium Chloride Carbon Dioxide 51 H* BUN 31 H Creatinine 0.5 L Glucose 224 H POC Glucose 217 H Lactic Acid Calcium Magnesium Ferritin Total Bilirubin Direct Bilirubin AST ALT Alkaline Phosphatase Lactate Dehydrogenase C-Reactive Protein Total Protein Albumin Triglycerides Lipase Arterial Blood Glucose Arterial Blood Ionized Calcium Urine WBC (Auto) Coronavirus (PCR) SARS-CoV-2 IgG Ab Crossmatch 06/21/20 06/21/20 06/21/20 14:18 14:30 18:36 WBC RBC Hgb Hct MCV MCH MCHC RDW Lymph % (Auto) [place] % (Auto) Lymph # (Auto) [place] # (Auto) Baso # (Auto) Seg Neutrophils % Seg Neuts % (Manual) Lymphocytes % (Manual) Nucleated RBC % Seg Neutrophils # Seg Neutrophils # Man Lymphocytes # (Manual) Monocytes # (Manual) Eosinophils # (Manual) PT 15.1 H INR 1.19 H APTT D-Dimer Heparin Anti-Xa Level ABG pH POC ABG pCO2 POC ABG pO2 ABG pO2 ABG HCO3 ABG O2 Saturation ABG Base Excess ABG Hemoglobin ABG Oxyhemoglobin ABG Sodium ABG Potassium ABG Chloride ABG Glucose Oxyhemoglobin Carboxyhemoglobin Sodium Potassium Chloride Carbon Dioxide BUN Creatinine Glucose POC Glucose 185 H Lactic Acid Calcium Magnesium Ferritin Total Bilirubin Direct Bilirubin AST ALT Alkaline Phosphatase Lactate Dehydrogenase C-Reactive Protein Total Protein Albumin Triglycerides Lipase Arterial Blood Glucose Arterial Blood Ionized Calcium Urine WBC (Auto) Coronavirus (PCR) SARS-CoV-2 IgG Ab Crossmatch See Detail 06/21/20 06/22/20 06/22/20 21:14 03:50 04:00 WBC RBC Hgb Hct MCV MCH MCHC RDW Lymph % (Auto) [place] % (Auto) Lymph # (Auto) [place] # (Auto) Baso # (Auto) Seg Neutrophils % Seg Neuts % (Manual) Lymphocytes % (Manual) Nucleated RBC % Seg Neutrophils # Seg Neutrophils # Man Lymphocytes # (Manual) Monocytes # (Manual) Eosinophils # (Manual) PT INR APTT D-Dimer Heparin Anti-Xa Level ABG pH 7.451 H POC ABG pCO2 POC ABG pO2 ABG pO2 ABG HCO3 47.5 H ABG O2 Saturation ABG Base Excess 22.0 H ABG Hemoglobin < 5.1 L ABG Oxyhemoglobin ABG Sodium ABG Potassium ABG Chloride ABG Glucose Oxyhemoglobin 94.1 L Carboxyhemoglobin Sodium 149 H Potassium 3.5 L Chloride Carbon Dioxide 42 H* D BUN 34 H Creatinine 0.4 L Glucose 219 H POC Glucose 250 H Lactic Acid Calcium Magnesium Ferritin Total Bilirubin Direct Bilirubin AST ALT Alkaline Phosphatase Lactate Dehydrogenase C-Reactive Protein Total Protein Albumin Triglycerides Lipase Arterial Blood Glucose Arterial Blood Ionized Calcium Urine WBC (Auto) Coronavirus (PCR) SARS-CoV-2 IgG Ab Crossmatch 06/22/20 06/22/20 06/22/20 12:16 14:29 17:56 WBC RBC Hgb Hct MCV MCH MCHC RDW Lymph % (Auto) [place] % (Auto) Lymph # (Auto) [place] # (Auto) Baso # (Auto) Seg Neutrophils % Seg Neuts % (Manual) Lymphocytes % (Manual) Nucleated RBC % Seg Neutrophils # Seg Neutrophils # Man Lymphocytes # (Manual) Monocytes # (Manual) Eosinophils # (Manual) PT 11.8 L INR APTT 23.5 L D-Dimer Heparin Anti-Xa Level ABG pH POC ABG pCO2 POC ABG pO2 ABG pO2 ABG HCO3 ABG O2 Saturation ABG Base Excess ABG Hemoglobin ABG Oxyhemoglobin ABG Sodium ABG Potassium ABG Chloride ABG Glucose Oxyhemoglobin Carboxyhemoglobin Sodium Potassium Chloride Carbon Dioxide BUN Creatinine Glucose POC Glucose 215 H 215 H Lactic Acid Calcium Magnesium Ferritin Total Bilirubin Direct Bilirubin AST ALT Alkaline Phosphatase Lactate Dehydrogenase C-Reactive Protein Total Protein Albumin Triglycerides Lipase Arterial Blood Glucose Arterial Blood Ionized Calcium Urine WBC (Auto) Coronavirus (PCR) SARS-CoV-2 IgG Ab Crossmatch 06/22/20 06/22/20 06/22/20 23:36 23:45 Unknown WBC 14.1 H RBC 2.70 L Hgb 8.9 L 8.9 L Hct 26.9 L 27.2 L D MCV 101 H MCH 33 H MCHC RDW 17.7 H Lymph % (Auto) [place] % (Auto) Lymph # (Auto) [place] # (Auto) Baso # (Auto) Seg Neutrophils % Seg Neuts % (Manual) 92.0 H Lymphocytes % (Manual) 5.0 L Nucleated RBC % Seg Neutrophils # Seg Neutrophils # Man 13.0 H Lymphocytes # (Manual) 0.7 L Monocytes # (Manual) Eosinophils # (Manual) PT INR APTT D-Dimer Heparin Anti-Xa Level ABG pH POC ABG pCO2 POC ABG pO2 ABG pO2 ABG HCO3 ABG O2 Saturation ABG Base Excess ABG Hemoglobin ABG Oxyhemoglobin ABG Sodium ABG Potassium ABG Chloride ABG Glucose Oxyhemoglobin Carboxyhemoglobin Sodium Potassium Chloride Carbon Dioxide BUN Creatinine Glucose POC Glucose 208 H Lactic Acid Calcium Magnesium Ferritin Total Bilirubin Direct Bilirubin AST ALT Alkaline Phosphatase Lactate Dehydrogenase C-Reactive Protein Total Protein Albumin Triglycerides Lipase Arterial Blood Glucose Arterial Blood Ionized Calcium Urine WBC (Auto) Coronavirus (PCR) SARS-CoV-2 IgG Ab Crossmatch 06/23/20 06/23/20 06/23/20 05:17 05:19 06:50 WBC RBC Hgb Hct MCV MCH MCHC RDW Lymph % (Auto) [place] % (Auto) Lymph # (Auto) [place] # (Auto) Baso # (Auto) Seg Neutrophils % Seg Neuts % (Manual) Lymphocytes % (Manual) Nucleated RBC % Seg Neutrophils # Seg Neutrophils # Man Lymphocytes # (Manual) Monocytes # (Manual) Eosinophils # (Manual) PT INR APTT D-Dimer Heparin Anti-Xa Level ABG pH POC ABG pCO2 69.7 H POC ABG pO2 63.3 L ABG pO2 ABG HCO3 ABG O2 Saturation ABG Base Excess ABG Hemoglobin 10.1 L ABG Oxyhemoglobin ABG Sodium ABG Potassium 3.3 L ABG Chloride ABG Glucose 226 H Oxyhemoglobin Carboxyhemoglobin Sodium Potassium 3.0 L Chloride Carbon Dioxide 41 H* BUN 26 H Creatinine 0.4 L Glucose 209 H POC Glucose 200 H Lactic Acid Calcium Magnesium Ferritin Total Bilirubin Direct Bilirubin AST ALT Alkaline Phosphatase Lactate Dehydrogenase C-Reactive Protein Total Protein Albumin 2.9 L Triglycerides Lipase Arterial Blood Glucose 226 H Arterial Blood Ionized Calcium Urine WBC (Auto) Coronavirus (PCR) SARS-CoV-2 IgG Ab Crossmatch 06/23/20 06/23/20 06/23/20 09:41 12:04 18:16 WBC RBC Hgb 9.1 L Hct 28.0 L MCV MCH MCHC RDW Lymph % (Auto) [place] % (Auto) Lymph # (Auto) [place] # (Auto) Baso # (Auto) Seg Neutrophils % Seg Neuts % (Manual) Lymphocytes % (Manual) Nucleated RBC % Seg Neutrophils # Seg Neutrophils # Man Lymphocytes # (Manual) Monocytes # (Manual) Eosinophils # (Manual) PT INR APTT D-Dimer Heparin Anti-Xa Level ABG pH POC ABG pCO2 POC ABG pO2 ABG pO2 ABG HCO3 ABG O2 Saturation ABG Base Excess ABG Hemoglobin ABG Oxyhemoglobin ABG Sodium ABG Potassium ABG Chloride ABG Glucose Oxyhemoglobin Carboxyhemoglobin Sodium Potassium Chloride Carbon Dioxide BUN Creatinine Glucose POC Glucose 146 H 162 H Lactic Acid Calcium Magnesium Ferritin Total Bilirubin Direct Bilirubin AST ALT Alkaline Phosphatase Lactate Dehydrogenase C-Reactive Protein Total Protein Albumin Triglycerides Lipase Arterial Blood Glucose Arterial Blood Ionized Calcium Urine WBC (Auto) Coronavirus (PCR) SARS-CoV-2 IgG Ab Crossmatch 06/23/20 06/23/20 06/24/20 23:24 23:41 02:39 WBC RBC Hgb 8.2 L 8.8 L Hct 24.9 L 26.8 L MCV MCH MCHC RDW Lymph % (Auto) [place] % (Auto) Lymph # (Auto) [place] # (Auto) Baso # (Auto) Seg Neutrophils % Seg Neuts % (Manual) Lymphocytes % (Manual) Nucleated RBC % Seg Neutrophils # Seg Neutrophils # Man Lymphocytes # (Manual) Monocytes # (Manual) Eosinophils # (Manual) PT INR APTT D-Dimer Heparin Anti-Xa Level ABG pH POC ABG pCO2 POC ABG pO2 ABG pO2 ABG HCO3 ABG O2 Saturation ABG Base Excess ABG Hemoglobin ABG Oxyhemoglobin ABG Sodium ABG Potassium ABG Chloride ABG Glucose Oxyhemoglobin Carboxyhemoglobin Sodium Potassium Chloride Carbon Dioxide BUN Creatinine Glucose POC Glucose 248 H Lactic Acid Calcium Magnesium Ferritin Total Bilirubin Direct Bilirubin AST ALT Alkaline Phosphatase Lactate Dehydrogenase C-Reactive Protein Total Protein Albumin Triglycerides Lipase Arterial Blood Glucose Arterial Blood Ionized Calcium Urine WBC (Auto) Coronavirus (PCR) SARS-CoV-2 IgG Ab Crossmatch 06/24/20 06/24/20 06/24/20 02:39 02:45 05:31 WBC RBC Hgb Hct MCV MCH MCHC RDW Lymph % (Auto) [place] % (Auto) Lymph # (Auto) [place] # (Auto) Baso # (Auto) Seg Neutrophils % Seg Neuts % (Manual) Lymphocytes % (Manual) Nucleated RBC % Seg Neutrophils # Seg Neutrophils # Man Lymphocytes # (Manual) Monocytes # (Manual) Eosinophils # (Manual) PT INR APTT D-Dimer Heparin Anti-Xa Level ABG pH POC ABG pCO2 66.9 H POC ABG pO2 109.7 H ABG pO2 ABG HCO3 ABG O2 Saturation ABG Base Excess ABG Hemoglobin 9.7 L ABG Oxyhemoglobin ABG Sodium 135.0 L ABG Potassium ABG Chloride 97.0 L ABG Glucose 277 H Oxyhemoglobin Carboxyhemoglobin Sodium 136 L Potassium Chloride 95.0 L Carbon Dioxide 34 H D BUN 24 H Creatinine 0.3 L Glucose 260 H POC Glucose 164 H Lactic Acid Calcium Magnesium Ferritin Total Bilirubin Direct Bilirubin AST ALT Alkaline Phosphatase Lactate Dehydrogenase C-Reactive Protein Total Protein 5.2 L Albumin 2.6 L Triglycerides Lipase Arterial Blood Glucose 277 H Arterial Blood Ionized Calcium Urine WBC (Auto) Coronavirus (PCR) SARS-CoV-2 IgG Ab Crossmatch 06/24/20 06/24/20 06/24/20 10:00 11:49 17:39 WBC RBC Hgb 8.9 L Hct 26.5 L MCV MCH MCHC RDW Lymph % (Auto) [place] % (Auto) Lymph # (Auto) [place] # (Auto) Baso # (Auto) Seg Neutrophils % Seg Neuts % (Manual) Lymphocytes % (Manual) Nucleated RBC % Seg Neutrophils # Seg Neutrophils # Man Lymphocytes # (Manual) Monocytes # (Manual) Eosinophils # (Manual) PT INR APTT D-Dimer Heparin Anti-Xa Level ABG pH POC ABG pCO2 POC ABG pO2 ABG pO2 ABG HCO3 ABG O2 Saturation ABG Base Excess ABG Hemoglobin ABG Oxyhemoglobin ABG Sodium ABG Potassium ABG Chloride ABG Glucose Oxyhemoglobin Carboxyhemoglobin Sodium Potassium Chloride Carbon Dioxide BUN Creatinine Glucose POC Glucose 198 H 223 H Lactic Acid Calcium Magnesium Ferritin Total Bilirubin Direct Bilirubin AST ALT Alkaline Phosphatase Lactate Dehydrogenase C-Reactive Protein Total Protein Albumin Triglycerides Lipase Arterial Blood Glucose Arterial Blood Ionized Calcium Urine WBC (Auto) Coronavirus (PCR) SARS-CoV-2 IgG Ab Crossmatch 06/24/20 06/25/20 06/25/20 23:56 02:16 04:08 WBC RBC Hgb Hct MCV MCH MCHC RDW Lymph % (Auto) [place] % (Auto) Lymph # (Auto) [place] # (Auto) Baso # (Auto) Seg Neutrophils % Seg Neuts % (Manual) Lymphocytes % (Manual) Nucleated RBC % Seg Neutrophils # Seg Neutrophils # Man Lymphocytes # (Manual) Monocytes # (Manual) Eosinophils # (Manual) PT INR APTT D-Dimer Heparin Anti-Xa Level ABG pH 7.454 H POC ABG pCO2 56.9 H POC ABG pO2 61.0 L ABG pO2 ABG HCO3 ABG O2 Saturation ABG Base Excess ABG Hemoglobin ABG Oxyhemoglobin ABG Sodium 134.3 L ABG Potassium ABG Chloride 92.0 L ABG Glucose 246 H Oxyhemoglobin Carboxyhemoglobin Sodium 134 L Potassium Chloride 89.7 L Carbon Dioxide 36 H BUN Creatinine 0.3 L Glucose 254 H POC Glucose 225 H Lactic Acid Calcium Magnesium Ferritin Total Bilirubin Direct Bilirubin AST ALT Alkaline Phosphatase Lactate Dehydrogenase C-Reactive Protein Total Protein Albumin 2.9 L Triglycerides Lipase Arterial Blood Glucose 246 H Arterial Blood Ionized Calcium Urine WBC (Auto) Coronavirus (PCR) SARS-CoV-2 IgG Ab Crossmatch 06/25/20 06/25/20 06/25/20 05:44 11:35 17:33 WBC RBC Hgb Hct MCV MCH MCHC RDW Lymph % (Auto) [place] % (Auto) Lymph # (Auto) [place] # (Auto) Baso # (Auto) Seg Neutrophils % Seg Neuts % (Manual) Lymphocytes % (Manual) Nucleated RBC % Seg Neutrophils # Seg Neutrophils # Man Lymphocytes # (Manual) Monocytes # (Manual) Eosinophils # (Manual) PT INR APTT D-Dimer Heparin Anti-Xa Level ABG pH POC ABG pCO2 POC ABG pO2 ABG pO2 ABG HCO3 ABG O2 Saturation ABG Base Excess ABG Hemoglobin ABG Oxyhemoglobin ABG Sodium ABG Potassium ABG Chloride ABG Glucose Oxyhemoglobin Carboxyhemoglobin Sodium Potassium Chloride Carbon Dioxide BUN Creatinine Glucose POC Glucose 170 H 175 H 229 H Lactic Acid Calcium Magnesium Ferritin Total Bilirubin Direct Bilirubin AST ALT Alkaline Phosphatase Lactate Dehydrogenase C-Reactive Protein Total Protein Albumin Triglycerides Lipase Arterial Blood Glucose Arterial Blood Ionized Calcium Urine WBC (Auto) Coronavirus (PCR) SARS-CoV-2 IgG Ab Crossmatch 06/25/20 06/26/20 06/26/20 23:55 02:17 02:17 WBC RBC Hgb 10.0 L Hct 30.4 L MCV MCH MCHC RDW Lymph % (Auto) [place] % (Auto) Lymph # (Auto) [place] # (Auto) Baso # (Auto) Seg Neutrophils % Seg Neuts % (Manual) Lymphocytes % (Manual) Nucleated RBC % Seg Neutrophils # Seg Neutrophils # Man Lymphocytes # (Manual) Monocytes # (Manual) Eosinophils # (Manual) PT INR APTT D-Dimer Heparin Anti-Xa Level ABG pH POC ABG pCO2 POC ABG pO2 ABG pO2 ABG HCO3 ABG O2 Saturation ABG Base Excess ABG Hemoglobin ABG Oxyhemoglobin ABG Sodium ABG Potassium ABG Chloride ABG Glucose Oxyhemoglobin Carboxyhemoglobin Sodium 136 L Potassium Chloride 90.1 L Carbon Dioxide 39 H BUN Creatinine 0.2 L Glucose 232 H POC Glucose 192 H Lactic Acid Calcium Magnesium Ferritin Total Bilirubin Direct Bilirubin AST ALT Alkaline Phosphatase Lactate Dehydrogenase C-Reactive Protein Total Protein 6.1 L Albumin 2.9 L Triglycerides Lipase Arterial Blood Glucose Arterial Blood Ionized Calcium Urine WBC (Auto) Coronavirus (PCR) SARS-CoV-2 IgG Ab Crossmatch 06/26/20 06/26/20 06/26/20 04:15 04:49 05:28 WBC RBC Hgb Hct MCV MCH MCHC RDW Lymph % (Auto) [place] % (Auto) Lymph # (Auto) [place] # (Auto) Baso # (Auto) Seg Neutrophils % Seg Neuts % (Manual) Lymphocytes % (Manual) Nucleated RBC % Seg Neutrophils # Seg Neutrophils # Man Lymphocytes # (Manual) Monocytes # (Manual) Eosinophils # (Manual) PT INR APTT D-Dimer Heparin Anti-Xa Level ABG pH 7.453 H POC ABG pCO2 59.6 H POC ABG pO2 ABG pO2 ABG HCO3 ABG O2 Saturation ABG Base Excess ABG Hemoglobin 10.0 L ABG Oxyhemoglobin ABG Sodium 134.2 L ABG Potassium 3.3 L ABG Chloride 92.0 L ABG Glucose 305 H Oxyhemoglobin Carboxyhemoglobin Sodium Potassium Chloride Carbon Dioxide BUN Creatinine Glucose POC Glucose 234 H Lactic Acid Calcium Magnesium Ferritin Total Bilirubin Direct Bilirubin AST ALT Alkaline Phosphatase Lactate Dehydrogenase C-Reactive Protein Total Protein Albumin Triglycerides 203 H Lipase Arterial Blood Glucose 305 H Arterial Blood Ionized Calcium Urine WBC (Auto) Coronavirus (PCR) SARS-CoV-2 IgG Ab Crossmatch 06/26/20 06/26/20 06/26/20 11:58 17:58 21:32 WBC RBC Hgb Hct MCV MCH MCHC RDW Lymph % (Auto) [place] % (Auto) Lymph # (Auto) [place] # (Auto) Baso # (Auto) Seg Neutrophils % Seg Neuts % (Manual) Lymphocytes % (Manual) Nucleated RBC % Seg Neutrophils # Seg Neutrophils # Man Lymphocytes # (Manual) Monocytes # (Manual) Eosinophils # (Manual) PT INR APTT D-Dimer Heparin Anti-Xa Level ABG pH POC ABG pCO2 POC ABG pO2 ABG pO2 ABG HCO3 ABG O2 Saturation ABG Base Excess ABG Hemoglobin ABG Oxyhemoglobin ABG Sodium ABG Potassium ABG Chloride ABG Glucose Oxyhemoglobin Carboxyhemoglobin Sodium Potassium Chloride Carbon Dioxide BUN Creatinine Glucose POC Glucose 198 H 193 H 191 H Lactic Acid Calcium Magnesium Ferritin Total Bilirubin Direct Bilirubin AST ALT Alkaline Phosphatase Lactate Dehydrogenase C-Reactive Protein Total Protein Albumin Triglycerides Lipase Arterial Blood Glucose Arterial Blood Ionized Calcium Urine WBC (Auto) Coronavirus (PCR) SARS-CoV-2 IgG Ab Crossmatch 06/26/20 06/27/20 06/27/20 23:40 04:35 05:32 WBC RBC Hgb Hct MCV MCH MCHC RDW Lymph % (Auto) [place] % (Auto) Lymph # (Auto) [place] # (Auto) Baso # (Auto) Seg Neutrophils % Seg Neuts % (Manual) Lymphocytes % (Manual) Nucleated RBC % Seg Neutrophils # Seg Neutrophils # Man Lymphocytes # (Manual) Monocytes # (Manual) Eosinophils # (Manual) PT INR APTT D-Dimer Heparin Anti-Xa Level ABG pH 7.464 H POC ABG pCO2 60.8 H POC ABG pO2 ABG pO2 ABG HCO3 ABG O2 Saturation ABG Base Excess ABG Hemoglobin 10.1 L ABG Oxyhemoglobin ABG Sodium ABG Potassium 2.9 L ABG Chloride 92.0 L ABG Glucose 298 H Oxyhemoglobin Carboxyhemoglobin Sodium Potassium Chloride Carbon Dioxide BUN Creatinine Glucose POC Glucose 241 H 211 H Lactic Acid Calcium Magnesium Ferritin Total Bilirubin Direct Bilirubin AST ALT Alkaline Phosphatase Lactate Dehydrogenase C-Reactive Protein Total Protein Albumin Triglycerides Lipase Arterial Blood Glucose 298 H Arterial Blood Ionized Calcium Urine WBC (Auto) Coronavirus (PCR) SARS-CoV-2 IgG Ab Crossmatch 06/27/20 06/27/20 06/27/20 12:37 18:08 20:52 WBC RBC Hgb Hct MCV MCH MCHC RDW Lymph % (Auto) [place] % (Auto) Lymph # (Auto) [place] # (Auto) Baso # (Auto) Seg Neutrophils % Seg Neuts % (Manual) Lymphocytes % (Manual) Nucleated RBC % Seg Neutrophils # Seg Neutrophils # Man Lymphocytes # (Manual) Monocytes # (Manual) Eosinophils # (Manual) PT INR APTT D-Dimer Heparin Anti-Xa Level ABG pH POC ABG pCO2 POC ABG pO2 ABG pO2 ABG HCO3 ABG O2 Saturation ABG Base Excess ABG Hemoglobin ABG Oxyhemoglobin ABG Sodium ABG Potassium ABG Chloride ABG Glucose Oxyhemoglobin Carboxyhemoglobin Sodium Potassium Chloride Carbon Dioxide BUN Creatinine Glucose POC Glucose 182 H 197 H 195 H Lactic Acid Calcium Magnesium Ferritin Total Bilirubin Direct Bilirubin AST ALT Alkaline Phosphatase Lactate Dehydrogenase C-Reactive Protein Total Protein Albumin Triglycerides Lipase Arterial Blood Glucose Arterial Blood Ionized Calcium Urine WBC (Auto) Coronavirus (PCR) SARS-CoV-2 IgG Ab Crossmatch 06/27/20 06/28/20 06/28/20 Unknown 04:17 04:50 WBC RBC Hgb Hct MCV MCH MCHC RDW Lymph % (Auto) [place] % (Auto) Lymph # (Auto) [place] # (Auto) Baso # (Auto) Seg Neutrophils % Seg Neuts % (Manual) Lymphocytes % (Manual) Nucleated RBC % Seg Neutrophils # Seg Neutrophils # Man Lymphocytes # (Manual) Monocytes # (Manual) Eosinophils # (Manual) PT INR APTT D-Dimer Heparin Anti-Xa Level ABG pH POC ABG pCO2 58.6 H POC ABG pO2 60.1 L ABG pO2 ABG HCO3 ABG O2 Saturation ABG Base Excess ABG Hemoglobin 10.0 L ABG Oxyhemoglobin ABG Sodium 125.3 L ABG Potassium ABG Chloride 93.0 L ABG Glucose 308 H Oxyhemoglobin Carboxyhemoglobin Sodium Potassium 2.9 L* Chloride 93.4 L Carbon Dioxide 42 H* BUN Creatinine 0.3 L Glucose 211 H POC Glucose 252 H Lactic Acid Calcium 8.1 L Magnesium Ferritin Total Bilirubin Direct Bilirubin AST ALT Alkaline Phosphatase Lactate Dehydrogenase C-Reactive Protein Total Protein 5.1 L Albumin 2.4 L Triglycerides Lipase Arterial Blood Glucose 308 H Arterial Blood Ionized Calcium Urine WBC (Auto) Coronavirus (PCR) SARS-CoV-2 IgG Ab Crossmatch 06/28/20 06/28/20 06/28/20 06:35 06:35 11:36 WBC 18.9 H RBC 2.85 L Hgb 9.5 L Hct 28.4 L MCV 100 H MCH 33 H MCHC RDW 17.3 H Lymph % (Auto) [place] % (Auto) Lymph # (Auto) [place] # (Auto) Baso # (Auto) Seg Neutrophils % 88.6 H Seg Neuts % (Manual) 95.0 H Lymphocytes % (Manual) 1.0 L Nucleated RBC % Seg Neutrophils # 15.9 H Seg Neutrophils # Man 18.0 H Lymphocytes # (Manual) 0.2 L Monocytes # (Manual) Eosinophils # (Manual) PT INR APTT D-Dimer Heparin Anti-Xa Level ABG pH POC ABG pCO2 POC ABG pO2 ABG pO2 ABG HCO3 ABG O2 Saturation ABG Base Excess ABG Hemoglobin ABG Oxyhemoglobin ABG Sodium ABG Potassium ABG Chloride ABG Glucose Oxyhemoglobin Carboxyhemoglobin Sodium Potassium Chloride 94.2 L Carbon Dioxide 38 H BUN Creatinine 0.3 L Glucose 228 H POC Glucose 243 H Lactic Acid Calcium Magnesium Ferritin Total Bilirubin Direct Bilirubin AST ALT Alkaline Phosphatase Lactate Dehydrogenase C-Reactive Protein Total Protein 6.1 L Albumin 2.7 L Triglycerides Lipase Arterial Blood Glucose Arterial Blood Ionized Calcium Urine WBC (Auto) Coronavirus (PCR) SARS-CoV-2 IgG Ab Crossmatch 06/28/20 06/28/20 06/29/20 16:53 21:10 00:06 WBC RBC Hgb Hct MCV MCH MCHC RDW Lymph % (Auto) [place] % (Auto) Lymph # (Auto) [place] # (Auto) Baso # (Auto) Seg Neutrophils % Seg Neuts % (Manual) Lymphocytes % (Manual) Nucleated RBC % Seg Neutrophils # Seg Neutrophils # Man Lymphocytes # (Manual) Monocytes # (Manual) Eosinophils # (Manual) PT INR APTT D-Dimer Heparin Anti-Xa Level ABG pH POC ABG pCO2 POC ABG pO2 ABG pO2 ABG HCO3 ABG O2 Saturation ABG Base Excess ABG Hemoglobin ABG Oxyhemoglobin ABG Sodium ABG Potassium ABG Chloride ABG Glucose Oxyhemoglobin Carboxyhemoglobin Sodium Potassium Chloride Carbon Dioxide BUN Creatinine Glucose POC Glucose 211 H 195 H 200 H Lactic Acid Calcium Magnesium Ferritin Total Bilirubin Direct Bilirubin AST ALT Alkaline Phosphatase Lactate Dehydrogenase C-Reactive Protein Total Protein Albumin Triglycerides Lipase Arterial Blood Glucose Arterial Blood Ionized Calcium Urine WBC (Auto) Coronavirus (PCR) SARS-CoV-2 IgG Ab Crossmatch 06/29/20 06/29/20 06/29/20 03:11 04:00 04:00 WBC 18.8 H RBC 2.82 L Hgb 10.1 L Hct 28.5 L MCV 101 H MCH 36 H MCHC 36 H RDW 17.5 H Lymph % (Auto) 10.7 L [place] % (Auto) Lymph # (Auto) [place] # (Auto) 1.0 H Baso # (Auto) 0.3 H Seg Neutrophils % 82.2 H Seg Neuts % (Manual) Lymphocytes % (Manual) Nucleated RBC % Seg Neutrophils # 15.5 H Seg Neutrophils # Man Lymphocytes # (Manual) Monocytes # (Manual) Eosinophils # (Manual) PT INR APTT D-Dimer Heparin Anti-Xa Level ABG pH POC ABG pCO2 57.5 H POC ABG pO2 69.1 L ABG pO2 ABG HCO3 ABG O2 Saturation ABG Base Excess ABG Hemoglobin 10.2 L ABG Oxyhemoglobin 92.3 L ABG Sodium 130.7 L ABG Potassium 3.2 L ABG Chloride 93.0 L ABG Glucose 228 H Oxyhemoglobin Carboxyhemoglobin Sodium 134 L Potassium 3.3 L Chloride 89.5 L Carbon Dioxide 40 H BUN Creatinine 0.2 L Glucose 190 H POC Glucose Lactic Acid Calcium Magnesium Ferritin Total Bilirubin Direct Bilirubin AST < 5 L ALT < 5 L Alkaline Phosphatase Lactate Dehydrogenase C-Reactive Protein Total Protein 5.9 L Albumin 2.2 L Triglycerides Lipase Arterial Blood Glucose 228 H Arterial Blood Ionized Calcium Urine WBC (Auto) Coronavirus (PCR) SARS-CoV-2 IgG Ab Crossmatch 06/29/20 06/29/20 06/29/20 05:00 05:23 09:36 WBC RBC Hgb Hct MCV MCH MCHC RDW Lymph % (Auto) [place] % (Auto) Lymph # (Auto) [place] # (Auto) Baso # (Auto) Seg Neutrophils % Seg Neuts % (Manual) Lymphocytes % (Manual) Nucleated RBC % Seg Neutrophils # Seg Neutrophils # Man Lymphocytes # (Manual) Monocytes # (Manual) Eosinophils # (Manual) PT INR APTT D-Dimer Heparin Anti-Xa Level ABG pH POC ABG pCO2 POC ABG pO2 ABG pO2 ABG HCO3 ABG O2 Saturation ABG Base Excess ABG Hemoglobin ABG Oxyhemoglobin ABG Sodium ABG Potassium ABG Chloride ABG Glucose Oxyhemoglobin Carboxyhemoglobin Sodium Potassium Chloride Carbon Dioxide BUN Creatinine Glucose POC Glucose 165 H Lactic Acid Calcium Magnesium Ferritin Total Bilirubin Direct Bilirubin AST ALT Alkaline Phosphatase Lactate Dehydrogenase C-Reactive Protein Total Protein Albumin Triglycerides 1544 H 1799 H Lipase Arterial Blood Glucose Arterial Blood Ionized Calcium Urine WBC (Auto) Coronavirus (PCR) SARS-CoV-2 IgG Ab Crossmatch 06/29/20 06/29/20 06/29/20 09:36 12:02 18:00 WBC RBC Hgb Hct MCV MCH MCHC RDW Lymph % (Auto) [place] % (Auto) Lymph # (Auto) [place] # (Auto) Baso # (Auto) Seg Neutrophils % Seg Neuts % (Manual) Lymphocytes % (Manual) Nucleated RBC % Seg Neutrophils # Seg Neutrophils # Man Lymphocytes # (Manual) Monocytes # (Manual) Eosinophils # (Manual) PT INR APTT D-Dimer Heparin Anti-Xa Level ABG pH POC ABG pCO2 POC ABG pO2 ABG pO2 ABG HCO3 ABG O2 Saturation ABG Base Excess ABG Hemoglobin ABG Oxyhemoglobin ABG Sodium ABG Potassium ABG Chloride ABG Glucose Oxyhemoglobin Carboxyhemoglobin Sodium Potassium Chloride Carbon Dioxide BUN Creatinine Glucose POC Glucose 197 H 187 H Lactic Acid Calcium Magnesium Ferritin Total Bilirubin Direct Bilirubin AST ALT Alkaline Phosphatase Lactate Dehydrogenase C-Reactive Protein Total Protein Albumin Triglycerides Lipase 86 H Arterial Blood Glucose Arterial Blood Ionized Calcium Urine WBC (Auto) Coronavirus (PCR) SARS-CoV-2 IgG Ab Crossmatch 06/29/20 06/30/20 06/30/20 23:33 03:46 05:50 WBC RBC Hgb Hct MCV MCH MCHC RDW Lymph % (Auto) [place] % (Auto) Lymph # (Auto) [place] # (Auto) Baso # (Auto) Seg Neutrophils % Seg Neuts % (Manual) Lymphocytes % (Manual) Nucleated RBC % Seg Neutrophils # Seg Neutrophils # Man Lymphocytes # (Manual) Monocytes # (Manual) Eosinophils # (Manual) PT INR APTT D-Dimer Heparin Anti-Xa Level ABG pH 7.466 H POC ABG pCO2 57.3 H POC ABG pO2 66.1 L ABG pO2 ABG HCO3 ABG O2 Saturation ABG Base Excess ABG Hemoglobin 10.2 L ABG Oxyhemoglobin 92.3 L ABG Sodium 134.4 L ABG Potassium 3.2 L ABG Chloride 94.0 L ABG Glucose 178 H Oxyhemoglobin Carboxyhemoglobin Sodium Potassium Chloride Carbon Dioxide BUN Creatinine Glucose POC Glucose 170 H 170 H Lactic Acid Calcium Magnesium Ferritin Total Bilirubin Direct Bilirubin AST ALT Alkaline Phosphatase Lactate Dehydrogenase C-Reactive Protein Total Protein Albumin Triglycerides Lipase Arterial Blood Glucose 178 H Arterial Blood Ionized Calcium Urine WBC (Auto) Coronavirus (PCR) SARS-CoV-2 IgG Ab Crossmatch 06/30/20 06/30/20 06/30/20 07:00 07:00 12:04 WBC 15.6 H RBC 2.91 L Hgb 9.8 L Hct 29.7 L MCV 102 H MCH 34 H MCHC RDW 17.8 H Lymph % (Auto) [place] % (Auto) Lymph # (Auto) [place] # (Auto) Baso # (Auto) Seg Neutrophils % Seg Neuts % (Manual) Lymphocytes % (Manual) 5.0 L Nucleated RBC % Seg Neutrophils # Seg Neutrophils # Man 14.8 H Lymphocytes # (Manual) 0.8 L Monocytes # (Manual) Eosinophils # (Manual) PT INR APTT D-Dimer Heparin Anti-Xa Level ABG pH POC ABG pCO2 POC ABG pO2 ABG pO2 ABG HCO3 ABG O2 Saturation ABG Base Excess ABG Hemoglobin ABG Oxyhemoglobin ABG Sodium ABG Potassium ABG Chloride ABG Glucose Oxyhemoglobin Carboxyhemoglobin Sodium Potassium Chloride 93.3 L Carbon Dioxide 43 H* BUN Creatinine 0.3 L Glucose 260 H POC Glucose 245 H Lactic Acid Calcium Magnesium Ferritin Total Bilirubin Direct Bilirubin AST ALT Alkaline Phosphatase Lactate Dehydrogenase C-Reactive Protein Total Protein Albumin 2.8 L Triglycerides 452 H Lipase Arterial Blood Glucose Arterial Blood Ionized Calcium Urine WBC (Auto) Coronavirus (PCR) SARS-CoV-2 IgG Ab Crossmatch 06/30/20 07/01/20 07/01/20 17:32 00:02 05:02 WBC RBC Hgb Hct MCV MCH MCHC RDW Lymph % (Auto) [place] % (Auto) Lymph # (Auto) [place] # (Auto) Baso # (Auto) Seg Neutrophils % Seg Neuts % (Manual) Lymphocytes % (Manual) Nucleated RBC % Seg Neutrophils # Seg Neutrophils # Man Lymphocytes # (Manual) Monocytes # (Manual) Eosinophils # (Manual) PT INR APTT D-Dimer Heparin Anti-Xa Level ABG pH POC ABG pCO2 58.1 H POC ABG pO2 ABG pO2 ABG HCO3 ABG O2 Saturation ABG Base Excess ABG Hemoglobin 11.2 L ABG Oxyhemoglobin ABG Sodium 132.7 L ABG Potassium ABG Chloride 92.0 L ABG Glucose 238 H Oxyhemoglobin Carboxyhemoglobin Sodium Potassium Chloride Carbon Dioxide BUN Creatinine Glucose POC Glucose 209 H 208 H Lactic Acid Calcium Magnesium Ferritin Total Bilirubin Direct Bilirubin AST ALT Alkaline Phosphatase Lactate Dehydrogenase C-Reactive Protein Total Protein Albumin Triglycerides Lipase Arterial Blood Glucose 238 H Arterial Blood Ionized Calcium Urine WBC (Auto) Coronavirus (PCR) SARS-CoV-2 IgG Ab Crossmatch 07/01/20 07/01/20 07/01/20 06:16 06:41 06:41 WBC 18.1 H RBC 2.33 L Hgb 7.1 L Hct 21.3 L D MCV MCH MCHC RDW Lymph % (Auto) [place] % (Auto) Lymph # (Auto) [place] # (Auto) Baso # (Auto) Seg Neutrophils % Seg Neuts % (Manual) 82.0 H Lymphocytes % (Manual) 7.0 L Nucleated RBC % 1.0 H Seg Neutrophils # Seg Neutrophils # Man 14.8 H Lymphocytes # (Manual) Monocytes # (Manual) 1.1 H Eosinophils # (Manual) 0.5 H PT INR APTT D-Dimer Heparin Anti-Xa Level < 0.10 L ABG pH POC ABG pCO2 POC ABG pO2 ABG pO2 ABG HCO3 ABG O2 Saturation ABG Base Excess ABG Hemoglobin ABG Oxyhemoglobin ABG Sodium ABG Potassium ABG Chloride ABG Glucose Oxyhemoglobin Carboxyhemoglobin Sodium Potassium Chloride Carbon Dioxide BUN Creatinine Glucose POC Glucose 180 H Lactic Acid Calcium Magnesium Ferritin Total Bilirubin Direct Bilirubin AST ALT Alkaline Phosphatase Lactate Dehydrogenase C-Reactive Protein Total Protein Albumin Triglycerides Lipase Arterial Blood Glucose Arterial Blood Ionized Calcium Urine WBC (Auto) Coronavirus (PCR) SARS-CoV-2 IgG Ab Crossmatch 07/01/20 07/01/20 07/01/20 08:11 12:04 16:16 WBC RBC Hgb Hct MCV MCH MCHC RDW Lymph % (Auto) [place] % (Auto) Lymph # (Auto) [place] # (Auto) Baso # (Auto) Seg Neutrophils % Seg Neuts % (Manual) Lymphocytes % (Manual) Nucleated RBC % Seg Neutrophils # Seg Neutrophils # Man Lymphocytes # (Manual) Monocytes # (Manual) Eosinophils # (Manual) PT INR APTT D-Dimer Heparin Anti-Xa Level 1.02 H ABG pH POC ABG pCO2 POC ABG pO2 ABG pO2 ABG HCO3 ABG O2 Saturation ABG Base Excess ABG Hemoglobin ABG Oxyhemoglobin ABG Sodium ABG Potassium ABG Chloride ABG Glucose Oxyhemoglobin Carboxyhemoglobin Sodium 135 L Potassium 3.0 L Chloride 93.1 L Carbon Dioxide 40 H BUN Creatinine 0.3 L Glucose 140 H POC Glucose 223 H Lactic Acid Calcium Magnesium Ferritin Total Bilirubin Direct Bilirubin AST ALT Alkaline Phosphatase Lactate Dehydrogenase C-Reactive Protein Total Protein Albumin Triglycerides Lipase Arterial Blood Glucose Arterial Blood Ionized Calcium Urine WBC (Auto) Coronavirus (PCR) SARS-CoV-2 IgG Ab Crossmatch 07/01/20 07/01/20 07/02/20 17:09 23:19 00:56 WBC RBC Hgb Hct MCV MCH MCHC RDW Lymph % (Auto) [place] % (Auto) Lymph # (Auto) [place] # (Auto) Baso # (Auto) Seg Neutrophils % Seg Neuts % (Manual) Lymphocytes % (Manual) Nucleated RBC % Seg Neutrophils # Seg Neutrophils # Man Lymphocytes # (Manual) Monocytes # (Manual) Eosinophils # (Manual) PT INR APTT D-Dimer Heparin Anti-Xa Level 0.22 L ABG pH POC ABG pCO2 POC ABG pO2 ABG pO2 ABG HCO3 ABG O2 Saturation ABG Base Excess ABG Hemoglobin ABG Oxyhemoglobin ABG Sodium ABG Potassium ABG Chloride ABG Glucose Oxyhemoglobin Carboxyhemoglobin Sodium Potassium Chloride Carbon Dioxide BUN Creatinine Glucose POC Glucose 233 H 255 H Lactic Acid Calcium Magnesium Ferritin Total Bilirubin Direct Bilirubin AST ALT Alkaline Phosphatase Lactate Dehydrogenase C-Reactive Protein Total Protein Albumin Triglycerides Lipase Arterial Blood Glucose Arterial Blood Ionized Calcium Urine WBC (Auto) Coronavirus (PCR) SARS-CoV-2 IgG Ab Crossmatch 07/02/20 07/02/20 07/02/20 03:51 05:35 11:39 WBC RBC Hgb Hct MCV MCH MCHC RDW Lymph % (Auto) [place] % (Auto) Lymph # (Auto) [place] # (Auto) Baso # (Auto) Seg Neutrophils % Seg Neuts % (Manual) Lymphocytes % (Manual) Nucleated RBC % Seg Neutrophils # Seg Neutrophils # Man Lymphocytes # (Manual) Monocytes # (Manual) Eosinophils # (Manual) PT INR APTT D-Dimer Heparin Anti-Xa Level ABG pH POC ABG pCO2 54.9 H POC ABG pO2 52.1 L ABG pO2 ABG HCO3 ABG O2 Saturation ABG Base Excess ABG Hemoglobin 11.9 L ABG Oxyhemoglobin 82.8 L ABG Sodium 130.2 L ABG Potassium ABG Chloride 92.0 L ABG Glucose 249 H Oxyhemoglobin Carboxyhemoglobin 1.9 H Sodium Potassium Chloride Carbon Dioxide BUN Creatinine Glucose POC Glucose 205 H 235 H Lactic Acid Calcium Magnesium Ferritin Total Bilirubin Direct Bilirubin AST ALT Alkaline Phosphatase Lactate Dehydrogenase C-Reactive Protein Total Protein Albumin Triglycerides Lipase Arterial Blood Glucose 249 H Arterial Blood Ionized Calcium Urine WBC (Auto) Coronavirus (PCR) SARS-CoV-2 IgG Ab Crossmatch 07/02/20 07/02/20 07/02/20 16:08 16:08 17:54 WBC 19.8 H RBC 3.28 L Hgb 10.7 L D Hct 32.7 L D MCV 100 H MCH 33 H MCHC RDW 17.2 H Lymph % (Auto) [place] % (Auto) Lymph # (Auto) [place] # (Auto) Baso # (Auto) Seg Neutrophils % Seg Neuts % (Manual) Lymphocytes % (Manual) Nucleated RBC % Seg Neutrophils # Seg Neutrophils # Man Lymphocytes # (Manual) Monocytes # (Manual) Eosinophils # (Manual) PT INR APTT D-Dimer Heparin Anti-Xa Level ABG pH POC ABG pCO2 POC ABG pO2 ABG pO2 ABG HCO3 ABG O2 Saturation ABG Base Excess ABG Hemoglobin ABG Oxyhemoglobin ABG Sodium ABG Potassium ABG Chloride ABG Glucose Oxyhemoglobin Carboxyhemoglobin Sodium 136 L Potassium Chloride 92.4 L Carbon Dioxide 35 H BUN Creatinine 0.3 L Glucose 203 H POC Glucose 175 H Lactic Acid Calcium Magnesium Ferritin Total Bilirubin Direct Bilirubin AST ALT Alkaline Phosphatase Lactate Dehydrogenase C-Reactive Protein Total Protein Albumin Triglycerides Lipase Arterial Blood Glucose Arterial Blood Ionized Calcium Urine WBC (Auto) Coronavirus (PCR) SARS-CoV-2 IgG Ab Crossmatch 07/02/20 07/03/20 07/03/20 23:46 03:25 05:54 WBC RBC Hgb Hct MCV MCH MCHC RDW Lymph % (Auto) [place] % (Auto) Lymph # (Auto) [place] # (Auto) Baso # (Auto) Seg Neutrophils % Seg Neuts % (Manual) Lymphocytes % (Manual) Nucleated RBC % Seg Neutrophils # Seg Neutrophils # Man Lymphocytes # (Manual) Monocytes # (Manual) Eosinophils # (Manual) PT INR APTT D-Dimer Heparin Anti-Xa Level ABG pH 7.468 H POC ABG pCO2 51.5 H POC ABG pO2 ABG pO2 ABG HCO3 ABG O2 Saturation ABG Base Excess ABG Hemoglobin ABG Oxyhemoglobin ABG Sodium 130.2 L ABG Potassium ABG Chloride 91.0 L ABG Glucose 210 H Oxyhemoglobin Carboxyhemoglobin 1.6 H Sodium Potassium Chloride Carbon Dioxide BUN Creatinine Glucose POC Glucose 173 H 125 H Lactic Acid Calcium Magnesium Ferritin Total Bilirubin Direct Bilirubin AST ALT Alkaline Phosphatase Lactate Dehydrogenase C-Reactive Protein Total Protein Albumin Triglycerides Lipase Arterial Blood Glucose 210 H Arterial Blood Ionized Calcium Urine WBC (Auto) Coronavirus (PCR) SARS-CoV-2 IgG Ab Crossmatch 07/03/20 07/03/20 07/03/20 11:43 12:20 12:20 WBC 16.5 H RBC 3.13 L Hgb 10.4 L Hct 31.8 L MCV 102 H MCH 33 H MCHC RDW 17.2 H Lymph % (Auto) [place] % (Auto) Lymph # (Auto) [place] # (Auto) Baso # (Auto) Seg Neutrophils % Seg Neuts % (Manual) Lymphocytes % (Manual) Nucleated RBC % Seg Neutrophils # Seg Neutrophils # Man Lymphocytes # (Manual) Monocytes # (Manual) Eosinophils # (Manual) PT INR APTT D-Dimer Heparin Anti-Xa Level ABG pH POC ABG pCO2 POC ABG pO2 ABG pO2 ABG HCO3 ABG O2 Saturation ABG Base Excess ABG Hemoglobin ABG Oxyhemoglobin ABG Sodium ABG Potassium ABG Chloride ABG Glucose Oxyhemoglobin Carboxyhemoglobin Sodium 132 L Potassium Chloride 88.5 L Carbon Dioxide 37 H BUN Creatinine 0.3 L Glucose 230 H POC Glucose 223 H Lactic Acid Calcium Magnesium Ferritin Total Bilirubin Direct Bilirubin AST ALT Alkaline Phosphatase Lactate Dehydrogenase C-Reactive Protein Total Protein Albumin Triglycerides Lipase Arterial Blood Glucose Arterial Blood Ionized Calcium Urine WBC (Auto) Coronavirus (PCR) SARS-CoV-2 IgG Ab Crossmatch 07/03/20 07/03/20 07/04/20 17:24 21:41 00:54 WBC RBC Hgb Hct MCV MCH MCHC RDW Lymph % (Auto) [place] % (Auto) Lymph # (Auto) [place] # (Auto) Baso # (Auto) Seg Neutrophils % Seg Neuts % (Manual) Lymphocytes % (Manual) Nucleated RBC % Seg Neutrophils # Seg Neutrophils # Man Lymphocytes # (Manual) Monocytes # (Manual) Eosinophils # (Manual) PT INR APTT D-Dimer Heparin Anti-Xa Level ABG pH POC ABG pCO2 POC ABG pO2 ABG pO2 ABG HCO3 ABG O2 Saturation ABG Base Excess ABG Hemoglobin ABG Oxyhemoglobin ABG Sodium ABG Potassium ABG Chloride ABG Glucose Oxyhemoglobin Carboxyhemoglobin Sodium Potassium Chloride Carbon Dioxide BUN Creatinine Glucose POC Glucose 163 H 220 H 195 H Lactic Acid Calcium Magnesium Ferritin Total Bilirubin Direct Bilirubin AST ALT Alkaline Phosphatase Lactate Dehydrogenase C-Reactive Protein Total Protein Albumin Triglycerides Lipase Arterial Blood Glucose Arterial Blood Ionized Calcium Urine WBC (Auto) Coronavirus (PCR) SARS-CoV-2 IgG Ab Crossmatch 07/04/20 07/04/20 07/04/20 03:25 04:00 04:00 WBC 14.9 H RBC 2.91 L Hgb 9.5 L Hct 29.2 L MCV 100 H MCH 33 H MCHC RDW 16.7 H Lymph % (Auto) 8.4 L [place] % (Auto) Lymph # (Auto) [place] # (Auto) 1.1 H Baso # (Auto) Seg Neutrophils % 84.2 H Seg Neuts % (Manual) Lymphocytes % (Manual) Nucleated RBC % Seg Neutrophils # 12.6 H Seg Neutrophils # Man Lymphocytes # (Manual) Monocytes # (Manual) Eosinophils # (Manual) PT INR APTT D-Dimer Heparin Anti-Xa Level ABG pH 7.474 H POC ABG pCO2 POC ABG pO2 51.8 L ABG pO2 ABG HCO3 ABG O2 Saturation ABG Base Excess ABG Hemoglobin ABG Oxyhemoglobin ABG Sodium ABG Potassium ABG Chloride ABG Glucose Oxyhemoglobin Carboxyhemoglobin Sodium Potassium 3.4 L Chloride 92.1 L Carbon Dioxide 34 H BUN Creatinine 0.3 L Glucose 173 H POC Glucose Lactic Acid Calcium Magnesium Ferritin Total Bilirubin Direct Bilirubin AST ALT Alkaline Phosphatase Lactate Dehydrogenase C-Reactive Protein Total Protein Albumin Triglycerides Lipase Arterial Blood Glucose Arterial Blood Ionized Calcium Urine WBC (Auto) Coronavirus (PCR) SARS-CoV-2 IgG Ab Crossmatch 07/04/20 07/04/20 07/04/20 06:18 11:39 17:18 WBC RBC Hgb Hct MCV MCH MCHC RDW Lymph % (Auto) [place] % (Auto) Lymph # (Auto) [place] # (Auto) Baso # (Auto) Seg Neutrophils % Seg Neuts % (Manual) Lymphocytes % (Manual) Nucleated RBC % Seg Neutrophils # Seg Neutrophils # Man Lymphocytes # (Manual) Monocytes # (Manual) Eosinophils # (Manual) PT INR APTT D-Dimer Heparin Anti-Xa Level ABG pH POC ABG pCO2 POC ABG pO2 ABG pO2 ABG HCO3 ABG O2 Saturation ABG Base Excess ABG Hemoglobin ABG Oxyhemoglobin ABG Sodium ABG Potassium ABG Chloride ABG Glucose Oxyhemoglobin Carboxyhemoglobin Sodium Potassium Chloride Carbon Dioxide BUN Creatinine Glucose POC Glucose 158 H 257 H 148 H Lactic Acid Calcium Magnesium Ferritin Total Bilirubin Direct Bilirubin AST ALT Alkaline Phosphatase Lactate Dehydrogenase C-Reactive Protein Total Protein Albumin Triglycerides Lipase Arterial Blood Glucose Arterial Blood Ionized Calcium Urine WBC (Auto) Coronavirus (PCR) SARS-CoV-2 IgG Ab Crossmatch 07/04/20 07/05/20 07/05/20 23:23 03:13 05:18 WBC 13.3 H RBC 2.90 L Hgb 9.8 L Hct 29.3 L MCV 101 H MCH 34 H MCHC RDW 17.0 H Lymph % (Auto) 11.1 L [place] % (Auto) Lymph # (Auto) [place] # (Auto) Baso # (Auto) Seg Neutrophils % 82.3 H Seg Neuts % (Manual) Lymphocytes % (Manual) Nucleated RBC % Seg Neutrophils # 10.9 H Seg Neutrophils # Man Lymphocytes # (Manual) Monocytes # (Manual) Eosinophils # (Manual) PT INR APTT D-Dimer Heparin Anti-Xa Level ABG pH 7.48 H POC ABG pCO2 52.0 H POC ABG pO2 ABG pO2 ABG HCO3 ABG O2 Saturation ABG Base Excess ABG Hemoglobin 10.0 L ABG Oxyhemoglobin ABG Sodium 131.0 L ABG Potassium 3.3 L ABG Chloride 93.0 L ABG Glucose 177 H Oxyhemoglobin Carboxyhemoglobin Sodium Potassium Chloride Carbon Dioxide BUN Creatinine Glucose POC Glucose 227 H Lactic Acid Calcium Magnesium Ferritin Total Bilirubin Direct Bilirubin AST ALT Alkaline Phosphatase Lactate Dehydrogenase C-Reactive Protein Total Protein Albumin Triglycerides Lipase Arterial Blood Glucose 177 H Arterial Blood Ionized Calcium Urine WBC (Auto) Coronavirus (PCR) SARS-CoV-2 IgG Ab Crossmatch 07/05/20 07/05/20 07/05/20 05:18 05:25 05:57 WBC RBC Hgb Hct MCV MCH MCHC RDW Lymph % (Auto) [place] % (Auto) Lymph # (Auto) [place] # (Auto) Baso # (Auto) Seg Neutrophils % Seg Neuts % (Manual) Lymphocytes % (Manual) Nucleated RBC % Seg Neutrophils # Seg Neutrophils # Man Lymphocytes # (Manual) Monocytes # (Manual) Eosinophils # (Manual) PT INR APTT D-Dimer Heparin Anti-Xa Level ABG pH 7.519 H POC ABG pCO2 POC ABG pO2 198.6 H ABG pO2 ABG HCO3 ABG O2 Saturation ABG Base Excess ABG Hemoglobin 10.3 L ABG Oxyhemoglobin 98.7 H ABG Sodium 133.6 L ABG Potassium 3.3 L ABG Chloride 93.0 L ABG Glucose 175 H Oxyhemoglobin Carboxyhemoglobin Sodium Potassium 3.4 L Chloride 92.5 L Carbon Dioxide 36 H BUN Creatinine 0.3 L Glucose 148 H POC Glucose 170 H Lactic Acid Calcium Magnesium Ferritin Total Bilirubin Direct Bilirubin AST ALT Alkaline Phosphatase Lactate Dehydrogenase C-Reactive Protein Total Protein Albumin Triglycerides Lipase Arterial Blood Glucose 175 H Arterial Blood Ionized Calcium Urine WBC (Auto) Coronavirus (PCR) SARS-CoV-2 IgG Ab Crossmatch 07/05/20 07/05/20 07/06/20 11:37 18:39 00:04 WBC RBC Hgb Hct MCV MCH MCHC RDW Lymph % (Auto) [place] % (Auto) Lymph # (Auto) [place] # (Auto) Baso # (Auto) Seg Neutrophils % Seg Neuts % (Manual) Lymphocytes % (Manual) Nucleated RBC % Seg Neutrophils # Seg Neutrophils # Man Lymphocytes # (Manual) Monocytes # (Manual) Eosinophils # (Manual) PT INR APTT D-Dimer Heparin Anti-Xa Level ABG pH POC ABG pCO2 POC ABG pO2 ABG pO2 ABG HCO3 ABG O2 Saturation ABG Base Excess ABG Hemoglobin ABG Oxyhemoglobin ABG Sodium ABG Potassium ABG Chloride ABG Glucose Oxyhemoglobin Carboxyhemoglobin Sodium Potassium Chloride Carbon Dioxide BUN Creatinine Glucose POC Glucose 195 H 200 H 222 H Lactic Acid Calcium Magnesium Ferritin Total Bilirubin Direct Bilirubin AST ALT Alkaline Phosphatase Lactate Dehydrogenase C-Reactive Protein Total Protein Albumin Triglycerides Lipase Arterial Blood Glucose Arterial Blood Ionized Calcium Urine WBC (Auto) Coronavirus (PCR) SARS-CoV-2 IgG Ab Crossmatch 07/06/20 07/06/20 07/06/20 05:25 06:52 06:52 WBC 15.8 H RBC 3.17 L Hgb 10.4 L Hct 31.5 L MCV 99 H MCH 33 H MCHC RDW 17.0 H Lymph % (Auto) [place] % (Auto) Lymph # (Auto) [place] # (Auto) Baso # (Auto) Seg Neutrophils % Seg Neuts % (Manual) Lymphocytes % (Manual) Nucleated RBC % Seg Neutrophils # Seg Neutrophils # Man Lymphocytes # (Manual) Monocytes # (Manual) Eosinophils # (Manual) PT INR APTT D-Dimer Heparin Anti-Xa Level ABG pH POC ABG pCO2 POC ABG pO2 ABG pO2 ABG HCO3 ABG O2 Saturation ABG Base Excess ABG Hemoglobin ABG Oxyhemoglobin ABG Sodium ABG Potassium ABG Chloride ABG Glucose Oxyhemoglobin Carboxyhemoglobin Sodium 135 L Potassium 3.4 L Chloride 91.9 L Carbon Dioxide 38 H BUN Creatinine 0.3 L Glucose 189 H POC Glucose 165 H Lactic Acid Calcium Magnesium Ferritin Total Bilirubin Direct Bilirubin AST ALT Alkaline Phosphatase Lactate Dehydrogenase C-Reactive Protein Total Protein Albumin Triglycerides Lipase Arterial Blood Glucose Arterial Blood Ionized Calcium Urine WBC (Auto) Coronavirus (PCR) SARS-CoV-2 IgG Ab Crossmatch 07/06/20 07/06/20 07/06/20 13:01 18:04 23:08 WBC RBC Hgb Hct MCV MCH MCHC RDW Lymph % (Auto) [place] % (Auto) Lymph # (Auto) [place] # (Auto) Baso # (Auto) Seg Neutrophils % Seg Neuts % (Manual) Lymphocytes % (Manual) Nucleated RBC % Seg Neutrophils # Seg Neutrophils # Man Lymphocytes # (Manual) Monocytes # (Manual) Eosinophils # (Manual) PT INR APTT D-Dimer Heparin Anti-Xa Level ABG pH POC ABG pCO2 POC ABG pO2 ABG pO2 ABG HCO3 ABG O2 Saturation ABG Base Excess ABG Hemoglobin ABG Oxyhemoglobin ABG Sodium ABG Potassium ABG Chloride ABG Glucose Oxyhemoglobin Carboxyhemoglobin Sodium Potassium Chloride Carbon Dioxide BUN Creatinine Glucose POC Glucose 195 H 169 H 173 H Lactic Acid Calcium Magnesium Ferritin Total Bilirubin Direct Bilirubin AST ALT Alkaline Phosphatase Lactate Dehydrogenase C-Reactive Protein Total Protein Albumin Triglycerides Lipase Arterial Blood Glucose Arterial Blood Ionized Calcium Urine WBC (Auto) Coronavirus (PCR) SARS-CoV-2 IgG Ab Crossmatch 07/07/20 07/07/20 07/07/20 05:35 05:35 05:39 WBC 17.6 H RBC 3.16 L Hgb 10.4 L Hct 31.5 L MCV 100 H MCH 33 H MCHC RDW 16.7 H Lymph % (Auto) 11.1 L [place] % (Auto) Lymph # (Auto) [place] # (Auto) 1.0 H Baso # (Auto) Seg Neutrophils % 83.0 H Seg Neuts % (Manual) Lymphocytes % (Manual) Nucleated RBC % Seg Neutrophils # 14.6 H Seg Neutrophils # Man Lymphocytes # (Manual) Monocytes # (Manual) Eosinophils # (Manual) PT INR APTT D-Dimer Heparin Anti-Xa Level ABG pH POC ABG pCO2 POC ABG pO2 ABG pO2 ABG HCO3 ABG O2 Saturation ABG Base Excess ABG Hemoglobin ABG Oxyhemoglobin ABG Sodium ABG Potassium ABG Chloride ABG Glucose Oxyhemoglobin Carboxyhemoglobin Sodium 135 L Potassium 3.4 L Chloride 94.3 L Carbon Dioxide 32 H BUN Creatinine 0.2 L Glucose 240 H POC Glucose 191 H Lactic Acid Calcium Magnesium Ferritin Total Bilirubin Direct Bilirubin AST ALT Alkaline Phosphatase Lactate Dehydrogenase C-Reactive Protein Total Protein Albumin Triglycerides Lipase Arterial Blood Glucose Arterial Blood Ionized Calcium Urine WBC (Auto) Coronavirus (PCR) SARS-CoV-2 IgG Ab Crossmatch 07/07/20 07/07/20 07/07/20 12:08 16:39 23:41 WBC RBC Hgb Hct MCV MCH MCHC RDW Lymph % (Auto) [place] % (Auto) Lymph # (Auto) [place] # (Auto) Baso # (Auto) Seg Neutrophils % Seg Neuts % (Manual) Lymphocytes % (Manual) Nucleated RBC % Seg Neutrophils # Seg Neutrophils # Man Lymphocytes # (Manual) Monocytes # (Manual) Eosinophils # (Manual) PT INR APTT D-Dimer Heparin Anti-Xa Level ABG pH POC ABG pCO2 POC ABG pO2 ABG pO2 ABG HCO3 ABG O2 Saturation ABG Base Excess ABG Hemoglobin ABG Oxyhemoglobin ABG Sodium ABG Potassium ABG Chloride ABG Glucose Oxyhemoglobin Carboxyhemoglobin Sodium Potassium Chloride Carbon Dioxide BUN Creatinine Glucose POC Glucose 248 H 209 H 231 H Lactic Acid Calcium Magnesium Ferritin Total Bilirubin Direct Bilirubin AST ALT Alkaline Phosphatase Lactate Dehydrogenase C-Reactive Protein Total Protein Albumin Triglycerides Lipase Arterial Blood Glucose Arterial Blood Ionized Calcium Urine WBC (Auto) Coronavirus (PCR) SARS-CoV-2 IgG Ab Crossmatch 07/08/20 07/08/20 07/08/20 04:58 04:58 05:38 WBC 21.0 H RBC 2.86 L Hgb 9.2 L Hct 28.6 L MCV 100 H MCH MCHC RDW 16.7 H Lymph % (Auto) [place] % (Auto) Lymph # (Auto) [place] # (Auto) Baso # (Auto) Seg Neutrophils % Seg Neuts % (Manual) 93.0 H Lymphocytes % (Manual) 3.0 L Nucleated RBC % Seg Neutrophils # Seg Neutrophils # Man 19.5 H Lymphocytes # (Manual) 0.6 L Monocytes # (Manual) Eosinophils # (Manual) PT INR APTT D-Dimer Heparin Anti-Xa Level ABG pH POC ABG pCO2 POC ABG pO2 ABG pO2 ABG HCO3 ABG O2 Saturation ABG Base Excess ABG Hemoglobin ABG Oxyhemoglobin ABG Sodium ABG Potassium ABG Chloride ABG Glucose Oxyhemoglobin Carboxyhemoglobin Sodium Potassium 3.0 L Chloride Carbon Dioxide BUN Creatinine 0.2 L Glucose 201 H POC Glucose 161 H Lactic Acid Calcium 7.9 L D Magnesium Ferritin Total Bilirubin Direct Bilirubin AST ALT Alkaline Phosphatase Lactate Dehydrogenase C-Reactive Protein Total Protein Albumin Triglycerides Lipase Arterial Blood Glucose Arterial Blood Ionized Calcium Urine WBC (Auto) Coronavirus (PCR) SARS-CoV-2 IgG Ab Crossmatch 07/08/20 07/08/20 07/08/20 12:19 16:26 Unknown WBC RBC Hgb Hct MCV MCH MCHC RDW Lymph % (Auto) [place] % (Auto) Lymph # (Auto) [place] # (Auto) Baso # (Auto) Seg Neutrophils % Seg Neuts % (Manual) Lymphocytes % (Manual) Nucleated RBC % Seg Neutrophils # Seg Neutrophils # Man Lymphocytes # (Manual) Monocytes # (Manual) Eosinophils # (Manual) PT INR APTT D-Dimer Heparin Anti-Xa Level ABG pH POC ABG pCO2 POC ABG pO2 ABG pO2 75.3 L ABG HCO3 34.3 H ABG O2 Saturation ABG Base Excess 8.7 H ABG Hemoglobin 10.2 L ABG Oxyhemoglobin ABG Sodium ABG Potassium ABG Chloride ABG Glucose Oxyhemoglobin 93.7 L Carboxyhemoglobin Sodium Potassium Chloride Carbon Dioxide BUN Creatinine Glucose POC Glucose 152 H 173 H Lactic Acid Calcium Magnesium Ferritin Total Bilirubin Direct Bilirubin AST ALT Alkaline Phosphatase Lactate Dehydrogenase C-Reactive Protein Total Protein Albumin Triglycerides Lipase Arterial Blood Glucose Arterial Blood Ionized Calcium Urine WBC (Auto) Coronavirus (PCR) SARS-CoV-2 IgG Ab Crossmatch 07/09/20 07/09/20 07/09/20 00:01 06:00 11:55 WBC RBC Hgb Hct MCV MCH MCHC RDW Lymph % (Auto) [place] % (Auto) Lymph # (Auto) [place] # (Auto) Baso # (Auto) Seg Neutrophils % Seg Neuts % (Manual) Lymphocytes % (Manual) Nucleated RBC % Seg Neutrophils # Seg Neutrophils # Man Lymphocytes # (Manual) Monocytes # (Manual) Eosinophils # (Manual) PT INR APTT D-Dimer Heparin Anti-Xa Level ABG pH POC ABG pCO2 POC ABG pO2 ABG pO2 ABG HCO3 ABG O2 Saturation ABG Base Excess ABG Hemoglobin ABG Oxyhemoglobin ABG Sodium ABG Potassium ABG Chloride ABG Glucose Oxyhemoglobin Carboxyhemoglobin Sodium Potassium Chloride Carbon Dioxide BUN Creatinine Glucose POC Glucose 207 H 141 H 228 H Lactic Acid Calcium Magnesium Ferritin Total Bilirubin Direct Bilirubin AST ALT Alkaline Phosphatase Lactate Dehydrogenase C-Reactive Protein Total Protein Albumin Triglycerides Lipase Arterial Blood Glucose Arterial Blood Ionized Calcium Urine WBC (Auto) Coronavirus (PCR) SARS-CoV-2 IgG Ab Crossmatch 07/09/20 07/09/20 07/09/20 16:47 23:53 Unknown WBC RBC Hgb Hct MCV MCH MCHC RDW Lymph % (Auto) [place] % (Auto) Lymph # (Auto) [place] # (Auto) Baso # (Auto) Seg Neutrophils % Seg Neuts % (Manual) Lymphocytes % (Manual) Nucleated RBC % Seg Neutrophils # Seg Neutrophils # Man Lymphocytes # (Manual) Monocytes # (Manual) Eosinophils # (Manual) PT INR APTT D-Dimer Heparin Anti-Xa Level ABG pH POC ABG pCO2 POC ABG pO2 ABG pO2 ABG HCO3 ABG O2 Saturation ABG Base Excess ABG Hemoglobin ABG Oxyhemoglobin ABG Sodium ABG Potassium ABG Chloride ABG Glucose Oxyhemoglobin Carboxyhemoglobin Sodium 132 L Potassium Chloride 92.7 L Carbon Dioxide 35 H BUN Creatinine 0.2 L Glucose 234 H POC Glucose 136 H 219 H Lactic Acid Calcium Magnesium Ferritin Total Bilirubin Direct Bilirubin AST ALT Alkaline Phosphatase Lactate Dehydrogenase C-Reactive Protein Total Protein Albumin Triglycerides Lipase Arterial Blood Glucose Arterial Blood Ionized Calcium Urine WBC (Auto) Coronavirus (PCR) SARS-CoV-2 IgG Ab Crossmatch 07/10/20 07/10/20 07/10/20 05:20 12:05 18:38 WBC RBC Hgb Hct MCV MCH MCHC RDW Lymph % (Auto) [place] % (Auto) Lymph # (Auto) [place] # (Auto) Baso # (Auto) Seg Neutrophils % Seg Neuts % (Manual) Lymphocytes % (Manual) Nucleated RBC % Seg Neutrophils # Seg Neutrophils # Man Lymphocytes # (Manual) Monocytes # (Manual) Eosinophils # (Manual) PT INR APTT D-Dimer Heparin Anti-Xa Level ABG pH POC ABG pCO2 POC ABG pO2 ABG pO2 ABG HCO3 ABG O2 Saturation ABG Base Excess ABG Hemoglobin ABG Oxyhemoglobin ABG Sodium ABG Potassium ABG Chloride ABG Glucose Oxyhemoglobin Carboxyhemoglobin Sodium Potassium Chloride Carbon Dioxide BUN Creatinine Glucose POC Glucose 221 H 174 H 152 H Lactic Acid Calcium Magnesium Ferritin Total Bilirubin Direct Bilirubin AST ALT Alkaline Phosphatase Lactate Dehydrogenase C-Reactive Protein Total Protein Albumin Triglycerides Lipase Arterial Blood Glucose Arterial Blood Ionized Calcium Urine WBC (Auto) Coronavirus (PCR) SARS-CoV-2 IgG Ab Crossmatch 07/11/20 07/11/20 07/11/20 00:16 05:42 08:13 WBC 11.9 H RBC 3.13 L Hgb 10.2 L Hct 31.2 L MCV 100 H MCH 33 H MCHC RDW 16.4 H Lymph % (Auto) [place] % (Auto) 9.3 H Lymph # (Auto) [place] # (Auto) 1.1 H Baso # (Auto) Seg Neutrophils % 72.7 H Seg Neuts % (Manual) Lymphocytes % (Manual) Nucleated RBC % Seg Neutrophils # 8.7 H Seg Neutrophils # Man Lymphocytes # (Manual) Monocytes # (Manual) Eosinophils # (Manual) PT INR APTT D-Dimer Heparin Anti-Xa Level ABG pH POC ABG pCO2 POC ABG pO2 ABG pO2 ABG HCO3 ABG O2 Saturation ABG Base Excess ABG Hemoglobin ABG Oxyhemoglobin ABG Sodium ABG Potassium ABG Chloride ABG Glucose Oxyhemoglobin Carboxyhemoglobin Sodium Potassium Chloride Carbon Dioxide BUN Creatinine Glucose POC Glucose 170 H 186 H Lactic Acid Calcium Magnesium Ferritin Total Bilirubin Direct Bilirubin AST ALT Alkaline Phosphatase Lactate Dehydrogenase C-Reactive Protein Total Protein Albumin Triglycerides Lipase Arterial Blood Glucose Arterial Blood Ionized Calcium Urine WBC (Auto) Coronavirus (PCR) SARS-CoV-2 IgG Ab Crossmatch 07/11/20 07/11/20 07/11/20 08:13 11:35 18:07 WBC RBC Hgb Hct MCV MCH MCHC RDW Lymph % (Auto) [place] % (Auto) Lymph # (Auto) [place] # (Auto) Baso # (Auto) Seg Neutrophils % Seg Neuts % (Manual) Lymphocytes % (Manual) Nucleated RBC % Seg Neutrophils # Seg Neutrophils # Man Lymphocytes # (Manual) Monocytes # (Manual) Eosinophils # (Manual) PT INR APTT D-Dimer Heparin Anti-Xa Level ABG pH POC ABG pCO2 POC ABG pO2 ABG pO2 ABG HCO3 ABG O2 Saturation ABG Base Excess ABG Hemoglobin ABG Oxyhemoglobin ABG Sodium ABG Potassium ABG Chloride ABG Glucose Oxyhemoglobin Carboxyhemoglobin Sodium 135 L Potassium Chloride 92.8 L Carbon Dioxide 38 H BUN Creatinine 0.2 L Glucose 132 H POC Glucose 129 H 156 H Lactic Acid Calcium Magnesium Ferritin Total Bilirubin Direct Bilirubin AST ALT Alkaline Phosphatase Lactate Dehydrogenase C-Reactive Protein Total Protein Albumin Triglycerides Lipase Arterial Blood Glucose Arterial Blood Ionized Calcium Urine WBC (Auto) Coronavirus (PCR) SARS-CoV-2 IgG Ab Crossmatch 07/11/20 07/11/20 07/12/20 18:36 23:18 05:28 WBC RBC Hgb Hct MCV MCH MCHC RDW Lymph % (Auto) [place] % (Auto) Lymph # (Auto) [place] # (Auto) Baso # (Auto) Seg Neutrophils % Seg Neuts % (Manual) Lymphocytes % (Manual) Nucleated RBC % Seg Neutrophils # Seg Neutrophils # Man Lymphocytes # (Manual) Monocytes # (Manual) Eosinophils # (Manual) PT INR APTT D-Dimer Heparin Anti-Xa Level ABG pH POC ABG pCO2 POC ABG pO2 70.9 L ABG pO2 ABG HCO3 ABG O2 Saturation ABG Base Excess ABG Hemoglobin 10.8 L ABG Oxyhemoglobin 92.5 L ABG Sodium 131.8 L ABG Potassium 3.2 L ABG Chloride 91.0 L ABG Glucose 181 H Oxyhemoglobin Carboxyhemoglobin Sodium Potassium Chloride Carbon Dioxide BUN Creatinine Glucose POC Glucose 189 H 190 H Lactic Acid Calcium Magnesium Ferritin Total Bilirubin Direct Bilirubin AST ALT Alkaline Phosphatase Lactate Dehydrogenase C-Reactive Protein Total Protein Albumin Triglycerides Lipase Arterial Blood Glucose 181 H Arterial Blood Ionized Calcium Urine WBC (Auto) Coronavirus (PCR) SARS-CoV-2 IgG Ab Crossmatch 07/12/20 07/12/20 07/12/20 11:33 17:45 23:59 WBC RBC Hgb Hct MCV MCH MCHC RDW Lymph % (Auto) [place] % (Auto) Lymph # (Auto) [place] # (Auto) Baso # (Auto) Seg Neutrophils % Seg Neuts % (Manual) Lymphocytes % (Manual) Nucleated RBC % Seg Neutrophils # Seg Neutrophils # Man Lymphocytes # (Manual) Monocytes # (Manual) Eosinophils # (Manual) PT INR APTT D-Dimer Heparin Anti-Xa Level ABG pH POC ABG pCO2 POC ABG pO2 ABG pO2 ABG HCO3 ABG O2 Saturation ABG Base Excess ABG Hemoglobin ABG Oxyhemoglobin ABG Sodium ABG Potassium ABG Chloride ABG Glucose Oxyhemoglobin Carboxyhemoglobin Sodium Potassium Chloride Carbon Dioxide BUN Creatinine Glucose POC Glucose 151 H 211 H 169 H Lactic Acid Calcium Magnesium Ferritin Total Bilirubin Direct Bilirubin AST ALT Alkaline Phosphatase Lactate Dehydrogenase C-Reactive Protein Total Protein Albumin Triglycerides Lipase Arterial Blood Glucose Arterial Blood Ionized Calcium Urine WBC (Auto) Coronavirus (PCR) SARS-CoV-2 IgG Ab Crossmatch 07/13/20 07/13/20 07/13/20 05:44 08:31 08:31 WBC 21.3 H RBC 2.92 L Hgb 9.7 L Hct 28.7 L MCV 98 H MCH 33 H MCHC RDW 16.8 H Lymph % (Auto) [place] % (Auto) Lymph # (Auto) [place] # (Auto) Baso # (Auto) Seg Neutrophils % Seg Neuts % (Manual) 96.0 H Lymphocytes % (Manual) 2.0 L Nucleated RBC % Seg Neutrophils # Seg Neutrophils # Man 20.4 H Lymphocytes # (Manual) 0.4 L Monocytes # (Manual) Eosinophils # (Manual) PT INR APTT D-Dimer Heparin Anti-Xa Level ABG pH POC ABG pCO2 POC ABG pO2 ABG pO2 ABG HCO3 ABG O2 Saturation ABG Base Excess ABG Hemoglobin ABG Oxyhemoglobin ABG Sodium ABG Potassium ABG Chloride ABG Glucose Oxyhemoglobin Carboxyhemoglobin Sodium Potassium 2.9 L* D Chloride 94.4 L Carbon Dioxide 37 H BUN Creatinine 0.2 L Glucose 166 H POC Glucose 122 H Lactic Acid Calcium Magnesium Ferritin Total Bilirubin Direct Bilirubin AST ALT Alkaline Phosphatase Lactate Dehydrogenase C-Reactive Protein Total Protein Albumin Triglycerides Lipase Arterial Blood Glucose Arterial Blood Ionized Calcium Urine WBC (Auto) Coronavirus (PCR) SARS-CoV-2 IgG Ab Crossmatch 07/13/20 07/13/20 07/13/20 11:54 13:52 17:40 WBC RBC Hgb Hct MCV MCH MCHC RDW Lymph % (Auto) [place] % (Auto) Lymph # (Auto) [place] # (Auto) Baso # (Auto) Seg Neutrophils % Seg Neuts % (Manual) Lymphocytes % (Manual) Nucleated RBC % Seg Neutrophils # Seg Neutrophils # Man Lymphocytes # (Manual) Monocytes # (Manual) Eosinophils # (Manual) PT INR APTT D-Dimer Heparin Anti-Xa Level ABG pH 7.477 H POC ABG pCO2 54.4 H POC ABG pO2 126.8 H ABG pO2 ABG HCO3 ABG O2 Saturation ABG Base Excess ABG Hemoglobin 11.5 L ABG Oxyhemoglobin ABG Sodium ABG Potassium 3.2 L ABG Chloride 92.0 L ABG Glucose 169 H Oxyhemoglobin Carboxyhemoglobin Sodium Potassium Chloride Carbon Dioxide BUN Creatinine Glucose POC Glucose 132 H 128 H Lactic Acid Calcium Magnesium Ferritin Total Bilirubin Direct Bilirubin AST ALT Alkaline Phosphatase Lactate Dehydrogenase C-Reactive Protein Total Protein Albumin Triglycerides Lipase Arterial Blood Glucose 169 H Arterial Blood Ionized Calcium Urine WBC (Auto) Coronavirus (PCR) SARS-CoV-2 IgG Ab Crossmatch 07/14/20 07/14/20 07/15/20 07:49 17:09 05:27 WBC RBC Hgb Hct MCV MCH MCHC RDW Lymph % (Auto) [place] % (Auto) Lymph # (Auto) [place] # (Auto) Baso # (Auto) Seg Neutrophils % Seg Neuts % (Manual) Lymphocytes % (Manual) Nucleated RBC % Seg Neutrophils # Seg Neutrophils # Man Lymphocytes # (Manual) Monocytes # (Manual) Eosinophils # (Manual) PT INR APTT D-Dimer Heparin Anti-Xa Level ABG pH POC ABG pCO2 POC ABG pO2 ABG pO2 ABG HCO3 ABG O2 Saturation ABG Base Excess ABG Hemoglobin ABG Oxyhemoglobin ABG Sodium ABG Potassium ABG Chloride ABG Glucose Oxyhemoglobin Carboxyhemoglobin Sodium Potassium 2.7 L* Chloride 94.0 L Carbon Dioxide 37 H BUN Creatinine 0.3 L Glucose 110 H POC Glucose 152 H 61 L Lactic Acid Calcium Magnesium Ferritin Total Bilirubin Direct Bilirubin AST ALT Alkaline Phosphatase Lactate Dehydrogenase C-Reactive Protein Total Protein Albumin Triglycerides Lipase Arterial Blood Glucose Arterial Blood Ionized Calcium Urine WBC (Auto) Coronavirus (PCR) SARS-CoV-2 IgG Ab Crossmatch 07/15/20 07/15/20 07/15/20 05:31 11:49 17:18 WBC RBC Hgb Hct MCV MCH MCHC RDW Lymph % (Auto) [place] % (Auto) Lymph # (Auto) [place] # (Auto) Baso # (Auto) Seg Neutrophils % Seg Neuts % (Manual) Lymphocytes % (Manual) Nucleated RBC % Seg Neutrophils # Seg Neutrophils # Man Lymphocytes # (Manual) Monocytes # (Manual) Eosinophils # (Manual) PT INR APTT D-Dimer Heparin Anti-Xa Level ABG pH POC ABG pCO2 POC ABG pO2 ABG pO2 ABG HCO3 ABG O2 Saturation ABG Base Excess ABG Hemoglobin ABG Oxyhemoglobin ABG Sodium ABG Potassium ABG Chloride ABG Glucose Oxyhemoglobin Carboxyhemoglobin Sodium Potassium 3.2 L Chloride 91.2 L Carbon Dioxide 33 H BUN Creatinine 0.3 L Glucose 139 H POC Glucose 148 H 196 H Lactic Acid Calcium Magnesium Ferritin Total Bilirubin Direct Bilirubin AST ALT Alkaline Phosphatase Lactate Dehydrogenase C-Reactive Protein Total Protein Albumin Triglycerides Lipase Arterial Blood Glucose Arterial Blood Ionized Calcium Urine WBC (Auto) Coronavirus (PCR) SARS-CoV-2 IgG Ab Crossmatch 07/15/20 07/16/20 07/16/20 23:08 05:18 05:19 WBC 11.3 H RBC 3.10 L Hgb 10.0 L Hct 30.3 L MCV 98 H MCH MCHC RDW 16.3 H Lymph % (Auto) [place] % (Auto) Lymph # (Auto) [place] # (Auto) Baso # (Auto) Seg Neutrophils % Seg Neuts % (Manual) Lymphocytes % (Manual) Nucleated RBC % Seg Neutrophils # Seg Neutrophils # Man Lymphocytes # (Manual) Monocytes # (Manual) Eosinophils # (Manual) PT INR APTT D-Dimer Heparin Anti-Xa Level ABG pH POC ABG pCO2 POC ABG pO2 ABG pO2 ABG HCO3 ABG O2 Saturation ABG Base Excess ABG Hemoglobin ABG Oxyhemoglobin ABG Sodium ABG Potassium ABG Chloride ABG Glucose Oxyhemoglobin Carboxyhemoglobin Sodium Potassium Chloride Carbon Dioxide BUN Creatinine Glucose POC Glucose 131 H 160 H Lactic Acid Calcium Magnesium Ferritin Total Bilirubin Direct Bilirubin AST ALT Alkaline Phosphatase Lactate Dehydrogenase C-Reactive Protein Total Protein Albumin Triglycerides Lipase Arterial Blood Glucose Arterial Blood Ionized Calcium Urine WBC (Auto) Coronavirus (PCR) SARS-CoV-2 IgG Ab Crossmatch 07/16/20 07/16/20 07/16/20 05:19 11:45 17:17 WBC RBC Hgb Hct MCV MCH MCHC RDW Lymph % (Auto) [place] % (Auto) Lymph # (Auto) [place] # (Auto) Baso # (Auto) Seg Neutrophils % Seg Neuts % (Manual) Lymphocytes % (Manual) Nucleated RBC % Seg Neutrophils # Seg Neutrophils # Man Lymphocytes # (Manual) Monocytes # (Manual) Eosinophils # (Manual) PT INR APTT D-Dimer Heparin Anti-Xa Level ABG pH POC ABG pCO2 POC ABG pO2 ABG pO2 ABG HCO3 ABG O2 Saturation ABG Base Excess ABG Hemoglobin ABG Oxyhemoglobin ABG Sodium ABG Potassium ABG Chloride ABG Glucose Oxyhemoglobin Carboxyhemoglobin Sodium 132 L Potassium 3.4 L Chloride 89.9 L Carbon Dioxide 39 H BUN Creatinine 0.3 L Glucose 174 H POC Glucose 169 H 143 H Lactic Acid Calcium Magnesium Ferritin Total Bilirubin Direct Bilirubin AST ALT Alkaline Phosphatase Lactate Dehydrogenase C-Reactive Protein Total Protein Albumin Triglycerides Lipase Arterial Blood Glucose Arterial Blood Ionized Calcium Urine WBC (Auto) Coronavirus (PCR) SARS-CoV-2 IgG Ab Crossmatch 07/16/20 07/17/20 07/17/20 23:54 05:32 11:26 WBC RBC Hgb Hct MCV MCH MCHC RDW Lymph % (Auto) [place] % (Auto) Lymph # (Auto) [place] # (Auto) Baso # (Auto) Seg Neutrophils % Seg Neuts % (Manual) Lymphocytes % (Manual) Nucleated RBC % Seg Neutrophils # Seg Neutrophils # Man Lymphocytes # (Manual) Monocytes # (Manual) Eosinophils # (Manual) PT INR APTT D-Dimer Heparin Anti-Xa Level ABG pH POC ABG pCO2 POC ABG pO2 ABG pO2 ABG HCO3 ABG O2 Saturation ABG Base Excess ABG Hemoglobin ABG Oxyhemoglobin ABG Sodium ABG Potassium ABG Chloride ABG Glucose Oxyhemoglobin Carboxyhemoglobin Sodium Potassium Chloride Carbon Dioxide BUN Creatinine Glucose POC Glucose 147 H 149 H 211 H Lactic Acid Calcium Magnesium Ferritin Total Bilirubin Direct Bilirubin AST ALT Alkaline Phosphatase Lactate Dehydrogenase C-Reactive Protein Total Protein Albumin Triglycerides Lipase Arterial Blood Glucose Arterial Blood Ionized Calcium Urine WBC (Auto) Coronavirus (PCR) SARS-CoV-2 IgG Ab Crossmatch 07/17/20 07/17/20 07/18/20 18:16 23:12 06:15 WBC RBC Hgb Hct MCV MCH MCHC RDW Lymph % (Auto) [place] % (Auto) Lymph # (Auto) [place] # (Auto) Baso # (Auto) Seg Neutrophils % Seg Neuts % (Manual) Lymphocytes % (Manual) Nucleated RBC % Seg Neutrophils # Seg Neutrophils # Man Lymphocytes # (Manual) Monocytes # (Manual) Eosinophils # (Manual) PT INR APTT D-Dimer Heparin Anti-Xa Level ABG pH POC ABG pCO2 POC ABG pO2 ABG pO2 ABG HCO3 ABG O2 Saturation ABG Base Excess ABG Hemoglobin ABG Oxyhemoglobin ABG Sodium ABG Potassium ABG Chloride ABG Glucose Oxyhemoglobin Carboxyhemoglobin Sodium Potassium Chloride Carbon Dioxide BUN Creatinine Glucose POC Glucose 161 H 136 H 108 H Lactic Acid Calcium Magnesium Ferritin Total Bilirubin Direct Bilirubin AST ALT Alkaline Phosphatase Lactate Dehydrogenase C-Reactive Protein Total Protein Albumin Triglycerides Lipase Arterial Blood Glucose Arterial Blood Ionized Calcium Urine WBC (Auto) Coronavirus (PCR) SARS-CoV-2 IgG Ab Crossmatch 07/18/20 07/18/20 07/18/20 08:47 08:47 11:50 WBC 17.7 H RBC 3.29 L Hgb 10.5 L Hct 31.8 L MCV 97 H MCH MCHC RDW 16.9 H Lymph % (Auto) [place] % (Auto) 8.6 H Lymph # (Auto) [place] # (Auto) 1.5 H Baso # (Auto) Seg Neutrophils % 74.6 H Seg Neuts % (Manual) Lymphocytes % (Manual) Nucleated RBC % Seg Neutrophils # 13.2 H Seg Neutrophils # Man Lymphocytes # (Manual) Monocytes # (Manual) Eosinophils # (Manual) PT INR APTT D-Dimer Heparin Anti-Xa Level ABG pH POC ABG pCO2 POC ABG pO2 ABG pO2 ABG HCO3 ABG O2 Saturation ABG Base Excess ABG Hemoglobin ABG Oxyhemoglobin ABG Sodium ABG Potassium ABG Chloride ABG Glucose Oxyhemoglobin Carboxyhemoglobin Sodium Potassium 2.8 L* Chloride 92.6 L Carbon Dioxide 40 H BUN Creatinine 0.3 L Glucose 177 H POC Glucose 178 H Lactic Acid Calcium Magnesium Ferritin Total Bilirubin Direct Bilirubin AST ALT Alkaline Phosphatase Lactate Dehydrogenase C-Reactive Protein Total Protein Albumin Triglycerides Lipase Arterial Blood Glucose Arterial Blood Ionized Calcium Urine WBC (Auto) Coronavirus (PCR) SARS-CoV-2 IgG Ab Crossmatch 07/18/20 07/18/20 07/19/20 17:18 23:33 05:22 WBC RBC Hgb Hct MCV MCH MCHC RDW Lymph % (Auto) [place] % (Auto) Lymph # (Auto) [place] # (Auto) Baso # (Auto) Seg Neutrophils % Seg Neuts % (Manual) Lymphocytes % (Manual) Nucleated RBC % Seg Neutrophils # Seg Neutrophils # Man Lymphocytes # (Manual) Monocytes # (Manual) Eosinophils # (Manual) PT INR APTT D-Dimer Heparin Anti-Xa Level ABG pH POC ABG pCO2 POC ABG pO2 ABG pO2 ABG HCO3 ABG O2 Saturation ABG Base Excess ABG Hemoglobin ABG Oxyhemoglobin ABG Sodium ABG Potassium ABG Chloride ABG Glucose Oxyhemoglobin Carboxyhemoglobin Sodium Potassium Chloride Carbon Dioxide BUN Creatinine Glucose POC Glucose 171 H 162 H 166 H Lactic Acid Calcium Magnesium Ferritin Total Bilirubin Direct Bilirubin AST ALT Alkaline Phosphatase Lactate Dehydrogenase C-Reactive Protein Total Protein Albumin Triglycerides Lipase Arterial Blood Glucose Arterial Blood Ionized Calcium Urine WBC (Auto) Coronavirus (PCR) SARS-CoV-2 IgG Ab Crossmatch 07/19/20 12:00 WBC RBC Hgb Hct MCV MCH MCHC RDW Lymph % (Auto) [place] % (Auto) Lymph # (Auto) [place] # (Auto) Baso # (Auto) Seg Neutrophils % Seg Neuts % (Manual) Lymphocytes % (Manual) Nucleated RBC % Seg Neutrophils # Seg Neutrophils # Man Lymphocytes # (Manual) Monocytes # (Manual) Eosinophils # (Manual) PT INR APTT D-Dimer Heparin Anti-Xa Level ABG pH POC ABG pCO2 POC ABG pO2 ABG pO2 ABG HCO3 ABG O2 Saturation ABG Base Excess ABG Hemoglobin ABG Oxyhemoglobin ABG Sodium ABG Potassium ABG Chloride ABG Glucose Oxyhemoglobin Carboxyhemoglobin Sodium Potassium Chloride Carbon Dioxide BUN Creatinine Glucose POC Glucose 201 H Lactic Acid Calcium Magnesium Ferritin Total Bilirubin Direct Bilirubin AST ALT Alkaline Phosphatase Lactate Dehydrogenase C-Reactive Protein Total Protein Albumin Triglycerides Lipase Arterial Blood Glucose Arterial Blood Ionized Calcium Urine WBC (Auto) Coronavirus (PCR) SARS-CoV-2 IgG Ab Crossmatch Chest x-ray: report reviewed, image reviewed Additional Studies: CHEST 1 VIEW 07/19/2020 7:45 AM INDICATION / CLINICAL INFORMATION: chest tube monitoring. COMPARISON: 07/17/2020 FINDINGS: SUPPORT DEVICES: Right-sided chest tube and nasogastric tube are unchanged HEART / MEDIASTINUM: Unchanged LUNGS / PLEURA: Bilateral pulmonary opacities persist. No pneumothorax. ADDITIONAL FINDINGS: No significant additional findings. IMPRESSION: 1. No significant change. Allied health notes reviewed: nursing
[2020-07-19] MEDS: guaiFENesin ER 600 MG TAB PO SCH (23:21)
[2020-07-20] MEDS: INSULIN LISPRO 100 UNIT/ML VIAL 3 mL SUB-Q SCH ×4 (05:06→18:23)
[2020-07-20] MEDS: CEFEPIME/NS 2 GM/100 ML 2 GM/100 ML BAG IV SCH ×3 (05:07→21:55)
--- NOTE | 2020-07-20 08:38 | Progress Note ---
Assessment and Plan Assessment and plan: 50 YO Male with Obesity, ETOH Dependence presents to ED for evaluation. Patient states that he has experienced shortness of breath, generalized weakness, fatigue, malaise, body aches, decreased exercise tolerance over the past 5 days with persistently worsening symptoms over the same timeframe. EMS was notified and upon arrival the patient was found to be in distress with a pulse oximetry of 76% on room air as well as fever to 103 F. Patient was placed on supplemental oxygen and subsequently transported to [facility] for further care and evaluation. Patient seen and evaluated in the emergency department. All lab and imaging studies reviewed. Patient underwent chest x-ray and was found to have bilateral pneumonia. Patient also found to have a pulse oximetry of 86% on 4 L nasal cannula. Patient initiated on a high flow submental oxygen with improvement of pulse oximetry. Patient admitted to medical floor and initiated on pneumonia protocol as well as COVID-19 protocol. Patient also found to have acute kidney injury as well as elevated liver function test suspected secondary to alcohol dependence. Patient reports being diagnosed with coronavirus 2 days ago. No prior admission for review. --Acute hypoxemic respiratory failure; Status post extubation, on high flow nasal cannula oxygen And BiPAP ,wean as tolerated, supportive care Pulmonary critical l care following --Pneumothorax status post right chest tube Chest x-ray no pneumothorax chest tube in place --Sinus tachycardia --Severe COVID-19 bilateral pneumonia Coronavirus protocol: IV steroid therapy, completed remdesivir, isolation precautions, contact precautions, prone positioning while in bed, pulmonary toilet. ID following SARS CoV-2 IgG positive patient is NOT a candidate for convalescent plasma --Elevated D-dimers/hyper coag state; Empiric anticoagulation with full dose Lovenox Closely monitor --Pseudomonas bacteremia; ID following, Continue cefepime --Severe sepsis/septic shock, due to COVID 19 PNA cont pressors as needed -- Acute kidney injury (SEN) , likely vasomotor nephropathy Resolved, IV fluids, avoid nephrotoxins --Acute on chronic anemia Guaiac test positive, GI evaluation PPIs, Continue to monitor -- Elevated liver function tests Suspected secondary to alcoholic liver disease. Supportive care, alcohol cessation, patient counseled. --Colonic distention GI evaluated colonic distention resolved recommend stool softeners Serial abdominal x-rays Monitor electrolytes and replete -- DVT prophylaxis On therapeutic Lovenox 50 YO Male with Obesity, ETOH Dependence presents to ED for evaluation for shortness of breath, generalized weakness, fatigue, malaise, body aches, decreased exercise tolerance over the past 5 days. EMS was notified and upon arrival the patient was found to be in distress with a pulse oximetry of 76% on room air as well as fever to 103 F. In the ER chest x-ray and was found to have bilateral pneumonia. Patient admitted to medical floor and initiated on pneumonia protocol as well as COVID-19 protocol. Patient reports being diagnosed with coronavirus 2 days ago before admission. 06/16/2020. Patient currently on mechanical ventilation with AC mode rate 30, tidal volume 500, FiO2 70% and PEEP of 16. Continue anticoagulation with Lovenox 110 milligrams subcu every 12 hours. Wean sedation of fentanyl/Versed as needed. Currently with IV steroids of Solu-Medrol 40 mg IV every 12 hours. Patient will likely need tracheostomy per pulmonary recommendations. Continue pressors to maintain MAP > 65. 06/17/2020. Patient currently on mechanical ventilation with AC mode rate 30, tidal volume 500, FiO2 65% and PEEP of 16. Continue anticoagulation with Lovenox 110 milligrams subcu every 12 hours. Wean sedation of fentanyl/Versed as needed. Currently with IV steroids of Solu-Medrol 40 mg IV every 12 hours. Patient will likely need tracheostomy per pulmonary recommendations. 06/18/2020. Patient currently on mechanical ventilation with AC mode rate 30, tidal volume 500, FiO2 70% and PEEP of 16. Continue Lovenox for anticoagulation and fentanyl/Versed for sedation. Wean steroids per pulmonary. CIWA protocol initiated for history of EtOH dependence 06/19/2020. Patient currently on mechanical ventilation with AC mode rate 30, tidal volume 500, FiO2 60% and PEEP of 16. Wean FiO2 as tolerated per protocol. Continue Lovenox for anticoagulation and fentanyl/Versed for sedation. Wean steroids per pulmonary. CIWA protocol initiated for history of EtOH dependence 06/20/2020. Patient currently on mechanical ventilation with AC mode rate 30, tidal volume 500, FiO2 60% and PEEP of 16. Wean FiO2 as tolerated, SBT per protocol. Continue Lovenox for anticoagulation and fentanyl/Versed for sedation. Wean steroids per pulmonary. Continue pressors to maintain MAP > 65 mmHg. Patient remains on ETT. Consider tracheostomy placement once oxygenation is better per pulmonary. CIWA protocol initiated for history of EtOH dependence. 06/21/2020. Patient with a small apical pneumothorax discovered yesterday. General surgery consulted and consider placing chest tube. Follow-up serial chest x-ray patient currently on mechanical ventilation with AC mode rate 30, tidal volume 500, FiO2 60% and PEEP of 16. Wean FiO2 as tolerated, SBT per pro tocol. Continue Lovenox for anticoagulation and fentanyl/Versed for sedation. Wean steroids per pulmonary. Continue pressors to maintain MAP > 65 mmHg. Patient remains on ETT. Consider tracheostomy placement once oxygenation is better per pulmonary. CIWA protocol initiated for history of EtOH dependence. 06/22. Status post right chest tube placement yesterday. Remains mechanically ventilated on pressors. Examination today shows slightly distended abdomen. KUB ordered. Awaiting stool guaiac. Plan to get a GI evaluation. 06/23. Has colonic distention on the x-ray. Discussed with GI-advised stool softeners for now and close monitoring. No indication for colonic decompression at this time. Guaiac test is positive. No emergent indication for endoscopy at this point as per GI. Continue to monitor hemoglobin. 06/24. Remains intubated. On pressors. GI following for positive guaiac stool and anemia, and colonic distention. 06/25. Repeat abdominal xray ordered. Remains on mechanical ventilation. 06/26. Abdominal xray - resolved colonic distension. Mechanically ventilated. 06/27. Plan for trach and PEG. 06/28: Awaiting trach and Peg. S\ome Bm REPORTED, will continue to monitor 06/29: Resume care, patient remains on ventilator support, waiting on trach and PEG placement. BM reported by the RN, continue to monitor. 06/30: Unable to wean off from vent, patient will need trach and PEG. Continue supportive care, tolerating tube feed. Monitor CBC and BMP 07/01: Continue mechanical ventilation, tube feeding as tolerated. Sedation as needed per mechanical ventilation protocol. Waiting on trach and PEG placement. 07/02: Continue current management, tube feeding, monitor CBC and BMP. Need trach and PEG-waiting on scheduling. Pulmonary critical care following. 07/03: wean off vent as tolerated. follow clinically. need trach and PEG 07/04: unable to wean. CT head ordered to assess for any changes but too unstable to do the test. need trach and PEG. 07/05: plan for trach/peg - GS following. off pressor - on midodrine. renal fu nction stable. intubated, but alert and can follow minor commend. discussed with daughter by phone. 07/06/2020; Dr. Márquez discussed with patient's daughter about trach but the daughter needs time to think about it. Patient was intubated and alert, FiO2 40%. 07/07/2020; patient was intubated and alert, FiO2 40%. Patient was diaphoretic, tachycardic, and EKG was done which was abnormal for me. I called installation superintendent Dr Louis saw the EKG and said it is normal EKG, and the findings are abnormal. 07/08/2020; no significant change, patient is intubated and alert. 2: Patient continues on current management. Pulmonary recommending trach and PEG awaiting patient's decision on this. Will check intermittent labs 07/11: Ordered CT still pending. Patient was agitated at night. Appears to have calmed down. Will repeat labs today. 07/12: Continue supportive care, awaiting CPAP trial. discussed with pulmonary. Obtain labs today. Trach and Peg planned 07/13: Continues to current management, PLAN FOR Trach and PEG on Sunday if patient is not able to liberated from the ventilator, Continue to monitor Fever curve and repeat Sepsis work up if persistent fever 07/14: Now extubated, continue to work up. 07/15: Clinical stable for transfer to [facility], still with fever and now showing bactermia. Continue Abx per ID. monitor fever 07/16: Continue supportive care. MONITOR FEVER CURVE, Adjust antibiotics as tolerated 07/17: Chest tube remains in place. More lethargic, Requested BIPAP to bedside, Chest tube to be discontinued, Awaiting Pysch input. 07/18: Chest tube remains in place repeat chest x-ray shows persistent bilateral opacity with mild improvement. Continue nebulizer treatments. Hypokalemia also noted will replace. Pulmonary and surgical input noted 07/19: Patient is a 50-year-old male admitted with shortness of breath ended up on mechanical ventilation noted to have pneumothorax has a chest tube in place. Has been successfully extubated but remains with delirium secondary to medical condition and also mild to moderate respiratory distress on Venturi mask. Continue weaning attempts. Patient still with chest tube. Continue serial x- rays. Will discuss with case management about possible LTAC placement. Blood cultures are currently returning Pseudomonas species. ID is following. 07/20/2020; patient continues to feel better, high flow oxygen and BiPAP Chest tube in place, continue current management, pulmonary surgery following The high probability of a clinically significant, sudden or life threatening deterioration of the [respiratory] system(s) required my full and direct attention, intervention and personal management. The aggregate critical care time was [35] minutes. This time is in addition to time spent performing reported procedures but includes the following: [x] Data Review and interpretation [x] Patient assessment and monitoring of vital signs [x] Documentation [x] Medication orders and management History Interval history: I have seen and examined the patient at the bedside Patient's chart and medications reviewed Patient feels much better Has right-sided chest tube on the CT Denies chest pain or shortness of breath Vital signs noted Hospitalist Physical - Constitutional Vitals: Temp Pulse Resp BP Pulse Ox 98.7 F 115 H 18 125/77 99 07/20/20 04:00 07/20/20 08:00 07/20/20 08:00 07/20/20 08:00 07/20/20 08:00 General appearance: Present: no acute distress, mild distress, well-nourished, other (On BiPAP) - EENT Eyes: Present: PERRL, EOM intact - Neck Neck: Present: supple, normal ROM - Respiratory Respiratory effort: labored Respiratory: bilateral: diminished, rhonchi, negative: CTA, rales, wheezing - Cardiovascular Rhythm: regular Heart Sounds: Present: S1 & S2 - Extremities Extremities: no ischemia, No edema - Abdominal General gastrointestinal: soft, non-tender, non-distended, normal bowel sounds - Integumentary Integumentary: Present: clear, warm - Psychiatric Psychiatric: appropriate mood/affect, cooperative - Neurologic Neurologic: CNII-XII intact, moves all extremities HEART Score - HEART Score Troponin: Troponin T 0.015 ng/mL (0.00-0.029) 07/07/20 10:00 Results - Labs CBC & Chem 7: 07/18/20 08:47 07/18/20 08:47 Labs: Laboratory Last Values WBC 17.7 K/mm3 (4.5-11.0) H 07/18/20 08:47 RBC 3.29 M/mm3 (3.65-5.03) L 07/18/20 08:47 Hgb 10.5 gm/dl (11.8-15.2) L 07/18/20 08:47 Hct 31.8 % (35.5-45.6) L 07/18/20 08:47 MCV 97 fl (84-94) H 07/18/20 08:47 MCH 32 pg (28-32) 07/18/20 08:47 MCHC 33 % (32-34) 07/18/20 08:47 RDW 16.9 % (13.2-15.2) H 07/18/20 08:47 Plt Count 374 K/mm3 (140-440) 07/18/20 08:47 Lymph % (Auto) 15.0 % (13.4-35.0) 07/18/20 08:47 [place] % (Auto) 8.6 % (0.0-7.3) H 07/18/20 08:47 Eos % (Auto) 1.5 % (0.0-4.3) 07/18/20 08:47 Baso % (Auto) 0.3 % (0.0-1.8) 07/18/20 08:47 Lymph # (Auto) 2.6 K/mm3 (1.2-5.4) 07/18/20 08:47 L[place] # (Auto) 1.5 K/mm3 (0.0-0.8) H 07/18/20 08:47 Eos # (Auto) 0.3 K/mm3 (0.0-0.4) 07/18/20 08:47 Baso # (Auto) 0.0 K/mm3 (0.0-0.1) 07/18/20 08:47 Add Manual Diff Complete 07/13/20 08:31 Total Counted 100 07/13/20 08:31 Seg Neutrophils % 74.6 % (40.0-70.0) H 07/18/20 08:47 Seg Neuts % (Manual) 96.0 % (40.0-70.0) H 07/13/20 08:31 Band Neutrophils % 0 % 07/13/20 08:31 Lymphocytes % (Manual) 2.0 % (13.4-35.0) L 07/13/20 08:31 Reactive Lymphs % (Man) 0 % 07/13/20 08:31 Monocytes % (Manual) 2.0 % (0.0-7.3) 07/13/20 08:31 Eosinophils % (Manual) 0 % (0.0-4.3) 07/13/20 08:31 Basophils % (Manual) 0 % (0.0-1.8) 07/13/20 08:31 Metamyelocytes % 0 % 07/13/20 08:31 Myelocytes % 0 % 07/13/20 08:31 Promyelocytes % 0 % 07/13/20 08:31 Blast Cells % 0 % 07/13/20 08:31 Nucleated RBC % Not Reportable 07/13/20 08:31 Seg Neutrophils # 13.2 K/mm3 (1.8-7.7) H 07/18/20 08:47 Seg Neutrophils # Man 20.4 K/mm3 (1.8-7.7) H 07/13/20 08:31 Band Neutrophils # 0.0 K/mm3 07/13/20 08:31 Lymphocytes # (Manual) 0.4 K/mm3 (1.2-5.4) L 07/13/20 08:31 Abs React Lymphs (Man) 0.0 K/mm3 07/13/20 08:31 Monocytes # (Manual) 0.4 K/mm3 (0.0-0.8) 07/13/20 08:31 Eosinophils # (Manual) 0.0 K/mm3 (0.0-0.4) 07/13/20 08:31 Basophils # (Manual) 0.0 K/mm3 (0.0-0.1) 07/13/20 08:31 Metamyelocytes # 0.0 K/mm3 07/13/20 08:31 Myelocytes # 0.0 K/mm3 07/13/20 08:31 Promyelocytes # 0.0 K/mm3 07/13/20 08:31 Blast Cells # 0.0 K/mm3 07/13/20 08:31 WBC Morphology Not Reportable 07/13/20 08:31 Hypersegmented Neuts Not Reportable 07/13/20 08:31 Hyposegmented Neuts Not Reportable 07/13/20 08:31 Hypogranular Neuts Not Reportable 07/13/20 08:31 Smudge Cells Not Reportable 07/13/20 08:31 Toxic Granulation Not Reportable 07/13/20 08:31 Toxic Vacuolation Not Reportable 07/13/20 08:31 Dohle Bodies Not Reportable 07/13/20 08:31 Pelger-Huet Anomaly Not Reportable 07/13/20 08:31 Jason Rods Not Reportable 07/13/20 08:31 Platelet Estimate Consistent w auto 07/13/20 08:31 Clumped Platelets Not Reportable 07/13/20 08:31 Plt Clumps, EDTA Not Reportable 07/13/20 08:31 Large Platelets Not Reportable 07/13/20 08:31 Giant Platelets Not Reportable 07/13/20 08:31 Platelet Satelliting Not Reportable 07/13/20 08:31 Plt Morphology Comment Not Reportable 07/13/20 08:31 RBC Morphology Not Reportable 07/13/20 08:31 Dimorphic RBCs Not Reportable 07/13/20 08:31 Polychromasia Not Reportable 07/13/20 08:31 Hypochromasia Not Reportable 07/13/20 08:31 Poikilocytosis Not Reportable 07/13/20 08:31 Anisocytosis Not Reportable 07/13/20 08:31 Microcytosis Not Reportable 07/13/20 08:31 Macrocytosis Not Reportable 07/13/20 08:31 Spherocytes Not Reportable 07/13/20 08:31 Pappenheimer Bodies Not Reportable 07/13/20 08:31 Sickle Cells Not Reportable 07/13/20 08:31 Target Cells Not Reportable 07/13/20 08:31 Tear Drop Cells Not Reportable 07/13/20 08:31 Ovalocytes Not Reportable 07/13/20 08:31 Stomatocytes Few 07/13/20 08:31 Helmet Cells Not Reportable 07/13/20 08:31 Sinclair[place] Bodies Not Reportable 07/13/20 08:31 [place] Rings Not Reportable 07/13/20 08:31 Izabella Cells Not Reportable 07/13/20 08:31 Bite Cells Not Reportable 07/13/20 08:31 Crenated Cell Not Reportable 07/13/20 08:31 Elliptocytes Not Reportable 07/13/20 08:31 Acanthocytes (Spur) Not Reportable 07/13/20 08:31 Rouleaux Not Reportable 07/13/20 08:31 Hemoglobin C Crystals Not Reportable 07/13/20 08:31 Schistocytes Not Reportable 07/13/20 08:31 Malaria parasites Not Reportable 07/13/20 08:31 Josue Bodies Not Reportable 07/13/20 08:31 Hem Pathologist Commnt No 07/13/20 08:31 PT 11.8 Sec. (12.2-14.9) L 06/22/20 14:29 INR 0.88 (0.87-1.13) 06/22/20 14:29 APTT 23.5 Sec. (24.2-36.6) L 06/22/20 14:29 D-Dimer 1887.82 ng/mlDDU (0-234) H 05/20/20 08:16 Heparin Anti-Xa Level 0.37 U.I./ml (0.3-0.7) 07/02/20 16:08 ABG pH 7.477 (7.320-7.450) H 07/13/20 13:52 POC ABG pCO2 54.4 mmHg (32.0-48.0) H 07/13/20 13:52 ABG pCO2 53.1 mm Hg 07/08/20 Unknown POC ABG pO2 126.8 mmHg (83-108) H 07/13/20 13:52 ABG pO2 75.3 mm Hg (80.0-90.0) L 07/08/20 Unknown POC ABG HCO3 39.3 07/13/20 13:52 ABG HCO3 34.3 mmol/L (20.0-26.0) H 07/08/20 Unknown ABG O2 Saturation 96.5 % (95.0-99.0) 07/08/20 Unknown ABG O2 Content 13.5 (0.0-44) 07/08/20 Unknown POC ABG Base Excess 13.8 07/13/20 13:52 ABG Base Excess 8.7 mmol/L (-2.0-3.0) H 07/08/20 Unknown ABG Hemoglobin 11.5 (12.0-17.5) L 07/13/20 13:52 ABG Oxyhemoglobin 97.7 (94-98) 07/13/20 13:52 ABG Carboxyhemoglobin 2.4 % (0.0-5.0) 07/08/20 Unknown ABG Methemoglobin 0 (0.0-1.5) 07/13/20 13:52 ABG Sodium 136.2 mmol/L (136.0-145.0) 07/13/20 13:52 ABG Potassium 3.2 mmol/L (3.40-4.50) L 07/13/20 13:52 ABG Chloride 92.0 mmol/L (98-107) L 07/13/20 13:52 ABG Glucose 169 mg/dL (65-95) H 07/13/20 13:52 Oxyhemoglobin 93.7 % (95.0-99.0) L 07/08/20 Unknown Carboxyhemoglobin 1.2 (0.5-1.5) 07/13/20 13:52 FiO2 45 07/13/20 13:52 Sodium 138 mmol/L (137-145) 07/18/20 08:47 Potassium 2.8 mmol/L (3.6-5.0) L* 07/18/20 08:47 Chloride 92.6 mmol/L (98-107) L 07/18/20 08:47 Carbon Dioxide 40 mmol/L (22-30) H 07/18/20 08:47 Anion Gap 8 mmol/L 07/18/20 08:47 BUN 11 mg/dL (9-20) 07/18/20 08:47 Creatinine 0.3 mg/dL (0.8-1.3) L 07/18/20 08:47 Estimated GFR > 60 ml/min 07/18/20 08:47 BUN/Creatinine Ratio 37 % 07/18/20 08:47 Glucose 177 mg/dL (75-100) H 07/18/20 08:47 POC Glucose 130 mg/dL (70-105) H 07/20/20 05:28 Lactic Acid 0.80 mmol/L (0.7-2.0) 07/13/20 15:45 Calcium 9.7 mg/dL (8.4-10.2) 07/18/20 08:47 Phosphorus 3.10 mg/dL (2.5-4.5) 06/15/20 04:00 Magnesium 1.80 mg/dL (1.7-2.3) 07/14/20 07:49 Ferritin 1496.0 ng/mL (30.0-300.0) H 06/14/20 11:50 Total Bilirubin 0.60 mg/dL (0.1-1.2) 06/30/20 07:00 Direct Bilirubin 0.6 mg/dL (0-0.2) H 05/11/20 07:30 Indirect Bilirubin 0.9 mg/dL 05/11/20 07:30 AST 21 units/L (5-40) 06/30/20 07:00 ALT 30 units/L (7-56) 06/30/20 07:00 Alkaline Phosphatase 81 units/L (35-129) 06/30/20 07:00 Lactate Dehydrogenase 705 units/L (91-180) H 05/20/20 08:16 Troponin T 0.015 ng/mL (0.00-0.029) 07/07/20 10:00 C-Reactive Protein 3.10 mg/dL (0.00-1.30) H 05/20/20 08:16 Total Protein 6.3 g/dL (6.3-8.2) 06/30/20 07:00 Albumin 2.8 g/dL (3.9-5) L 06/30/20 07:00 Albumin/Globulin Ratio 0.8 % 06/30/20 07:00 Triglycerides 452 mg/dL (2-149) H 06/30/20 07:00 Lipase 86 units/L (13-60) H 06/29/20 09:36 Procalcitonin 2.15 ng/mL (<0.15) 07/15/20 05:31 Arterial Blood Glucose 169 mg/dL (65-95) H 07/13/20 13:52 Arterial Blood Ionized Calcium 4.8 mg/dL (4.6-5.3) 07/13/20 13:52 Urine Color Fauzia (Yellow) 05/10/20 Unknown Urine Turbidity Clear (Clear) 05/10/20 Unknown Urine pH 5.0 (5.0-7.0) 05/10/20 Unknown Ur Specific Fletcher 1.019 (1.003-1.030) 05/10/20 Unknown Urine Protein 100 mg/dl mg/dL (Negative) 05/10/20 Unknown Urine Glucose (UA) Neg mg/dL (Negative) 05/10/20 Unknown Urine Ketones Neg mg/dL (Negative) 05/10/20 Unknown Urine Blood Lg (Negative) 05/10/20 Unknown Urine Nitrite Neg (Negative) 05/10/20 Unknown Urine Bilirubin Neg (Negative) 05/10/20 Unknown Urine Urobilinogen 2.0 mg/dL (<2.0) 05/10/20 Unknown Ur Leukocyte Esterase Neg (Negative) 05/10/20 Unknown Urine WBC (Auto) 11.0 /HPF (0.0-6.0) H 05/10/20 Unknown Urine RBC (Auto) 2.0 /HPF (0.0-6.0) 05/10/20 Unknown U Epithel Cells (Auto) 1.0 /HPF (0-13.0) 05/10/20 Unknown Urine Bacteria (Auto) 1+ /HPF (Negative) 05/10/20 Unknown Urine Mucus Few /HPF 05/10/20 Unknown Plasma/Serum Alcohol < 0.01 % (0-0.07) 05/09/20 14:20 Coronavirus (PCR) Negative (Negative) 06/30/20 10:28 Hepatitis A Ab Total Nonreactive (Nonreactive) 07/09/20 Unknown Hep B Core Total Ab Nonreactive (Nonreactive) 07/09/20 Unknown Hepatitis C RNA Quant See scanned result 07/09/20 Unknown SARS-CoV-2 IgG Ab Reactive (NonReactive) A 05/11/20 07:30 Blood Type B POSITIVE 06/21/20 14:18 Antibody Screen Negative 06/21/20 14:18 Crossmatch See Detail 06/21/20 14:18 - Diagnostic Impressions Diagnostic Impressions: Echocardiogram 05/20/20 13:02 Transthoracic Echocardiogram Indication: CHF BP: 97/73 Conclusions *The study quality is technically very difficult and limited. *The left ventricular chamber size, wall thickness and systolic function are within normal limits. There are no wall motion abnormalities observed. Ejection fraction is normal. *The estimated ejection fraction is 60-65%. *The pericardium appears normal. Findings Procedure Info: The study quality is technically difficult. Left Ventricle: The left ventricular chamber size, wall thickness and systolic function are within normal limits. There are no wall motion abnormalities observed. Ejection fraction is normal. The estimated ejection fraction is 60-65%. Abnormal left ventricular diastolic filling is observed, consistent with impaired relaxation. Left Atrium: The left atrium is normal in size with no visual thrombus identified. Right Ventricle: The right ventricle is not well visualized. Right Atrium: The right atrium is not well visualized. Aortic Valve: The aortic valve is trileaflet. The leaflets are thin with normal excursion. There is no aortic stenosis or regurgitation present. Mitral Valve: The mitral valve appears normal in structure and function. Tricuspid Valve: The tricuspid valve appears normal in structure and function. Unable to estimate the right ventricular systolic pressure. Pulmonic Valve: The pulmonic valve is not well visualized. There is no evidence of pulmonic regurgitation. There is no pulmonic stenosis. Pericardium: The pericardium appears normal. Pulmonary Artery: The main pulmonary artery is not well visualized. Venous: The inferior vena cava appears normal in size. Measurements Chambers 2D Name Value Normal Range IVSd (2D) 0.83 cm (0.6 - 1.1) LVPWd (2D) 0.83 cm (0.6 - 1.1) LVIDd (2D) 3.88 cm (3.7 - 5.6) LVIDs (2D) 2.46 cm (2 - 3.8) LV FS (2D) 36.52 % - EF Teichholz (2D) 66.97 % - Ao root diameter (2D) 3.47 cm (2 - 3.7) Volumes/Mass Name Value Normal Range LA ESV SP 4CH (A/L) 22.4 ml - LA ESV SP 2CH (A/L) 22.89 ml - LA ESV BP (A/L) 23.06 ml - LA ESV SP 4CH (MOD) 21.09 ml - LA ESV SP 2CH (MOD) 22.44 ml - Diastolic/Systolic Function Name Value Normal Range MV E-wave Vmax 0.48 m/sec - MV deceleration time 156.3 msec - MV A-wave Vmax 0.59 m/sec - MV E:A ratio 0.81 ratio - Aortic Valve Name Value Normal Range AV Vmax 0.97 m/sec - AV VTI 14.49 cm - AV peak gradient 3.73 mmHg - AV mean gradient 1.89 mmHg - LVOT diameter 2.09 cm - LVOT Vmax 0.72 m/sec - LVOT VTI 10.21 cm - LVOT peak gradient 2.05 mmHg - LVOT mean gradient 1.03 mmHg - SV LVOT 35.17 ml - INNA (continuity Vmax) 2.55 cm2 - INNA (continuity VTI) 2.43 cm2 - Tricuspid Valve Name Value Normal Range TV E-wave Vmax 0.37 m/sec - Pulmonic Valve/Qp:Qs Name Value Normal Range PV Vmax 0.72 m/sec - PV peak gradient 2.06 mmHg - RVOT Vmax 0.85 m/sec - RVOT VTI 9.89 cm - RVOT peak gradient 2.9 mmHg - PV acceleration time 72.31 msec - Cantor/IV: Voiding Method Condom Catheter IV Catheter Type [Right Upper Peripheral IV arm] IV Catheter Type [Right CVL Internal Jugular] IV Catheter Type [Right Peripheral IV Forearm] IV Catheter Type [Left Forearm INT / Saline Lock ] IV Catheter Type [Left Wrist] INT / Saline Lock IV Catheter Type [Right Hand] INT / Saline Lock IV Catheter Type [Left Hand] INT / Saline Lock IV Catheter Type [Left Peripheral IV Antecubital] Active Medications - Current Medications Current Medications: Generic Name Dose Route Start Last Admin Trade Name Freq PRN Reason Stop Dose Admin Alprazolam 0.25 mg 05/20/20 17:53 07/17/20 12:00 Alprazolam 0.25 Mg Tab PO 0.25 mg Q8H PRN Administration Anxiety Lipase/Protease/Amylase 1 each 05/22/20 13:01 Lipase 10,500/Protease 25,000/Amylase 43,750 (Units) Dr Newell FEEDTUBE PRN PRN For Clogged Feeding Tube Bisacodyl 10 mg 07/14/20 11:00 Bisacodyl 10 Mg Rect Supp [place] BID PRN Laxative Effect Docusate Sodium 100 mg 05/28/20 14:00 07/19/20 21:18 Docusate Sodium 100 Mg/10 Ml Oral Liqd PO Not Given BID DESIRE Enoxaparin Sodium 80 mg 07/07/20 23:00 07/19/20 21:19 Enoxaparin 80 Mg/0.8 Ml Inj SUB-Q 80 mg Q12HR DESIRE Administration Enoxaparin Sodium 30 mg 07/07/20 23:00 07/19/20 21:19 Enoxaparin 30 Mg/0.3 Ml Inj SUB-Q 30 mg Q12HR DESIRE Administration Folic Acid 1 mg 05/09/20 15:36 07/19/20 09:01 Folic Acid 1 Mg Tab PO 1 mg QDAY DESIRE Administration Guaifenesin 600 mg 07/19/20 23:00 07/19/20 23:21 Guaifenesin Er 600 Mg Tab PO 600 mg BID DESIRE Administration Hydrophilic Ointment 1 applic 05/21/20 20:33 Lip Therapy Vaseline TP Q2HR PRN Dry Lips Cefepime HCl 2 gm in 100 mls @ 200 mls/hr 07/14/20 21:00 07/20/20 05:07 Cefepime/Ns 2 Gm/100 Ml IV 100 mls/hr Q8H [facility] Administration Protocol Insulin Human Lispro 0 unit 05/29/20 14:00 07/20/20 07:02 Insulin Lispro 100 Unit/Ml Vial 3 Ml SUB-Q Not Given Q6H [facility] Protocol Lansoprazole 30 mg 06/28/20 10:00 07/19/20 09:01 Lansoprazole 30 Mg Solutab FEEDTUBE 30 mg QDAY DESIRE Administration Lorazepam 1 mg 07/04/20 01:10 07/18/20 11:57 Lorazepam 2 Mg/Ml Vial IV 1 mg Q1HR PRN Administration agitation Methylprednisolone Sodium Succinate 20 mg 07/15/20 10:00 07/19/20 09:01 Methylprednisolone Sod Succinate 40 Mg/1 Ml Inj IV 20 mg Q24HR DESIRE Administration Metoprolol Tartrate 5 mg 07/02/20 17:17 07/08/20 14:38 Metoprolol Tartrate 5 Mg/5 Ml Inj IV 5 mg Q6HR PRN Administration Tachyarrhythmias Metoprolol Tartrate 12.5 mg 07/17/20 12:00 07/19/20 21:19 Metoprolol Tartrate 25 Mg Tab PO 12.5 mg BID DESIRE Administration Midodrine 10 mg 06/30/20 16:00 07/19/20 15:17 Midodrine 5 Mg Tab PO 10 mg TID@0800,1200,1600 [facility] Administration Multi-Ingred Cream/Lotion/Oil/Oint 1 applic 05/21/20 20:33 Mineral Oil/Petrolatum, White Ophth Oint 3.5 Gm OU Q4HR PRN Dry Eye(s) Olanzapine 5 mg 07/17/20 22:00 07/19/20 21:21 Olanzapine 5 Mg Tab PO 5 mg QHS DESIRE Administration Phenobarbital 32.4 mg 07/04/20 22:00 07/19/20 21:20 Phenobarbital 32.4 Mg Tab PO 32.4 mg BID DESIRE Administration Quetiapine Fumarate 200 mg 07/16/20 10:00 07/19/20 09:02 Quetiapine 200 Mg Tab PO 200 mg QAM DESIRE Administration Senna 17.2 mg 07/14/20 11:00 Sennosides 8.6 Mg Tab PO BID PRN Laxative Effect Simple Syrup 15 ml 05/22/20 13:01 07/15/20 05:35 Simple Syrup 15 Ml FEEDTUBE 15 ml PRN PRN Administration Hypoglycemia Simple Syrup 30 ml 05/22/20 13:01 Simple Syrup 15 Ml FEEDTUBE PRN PRN Hypoglycemia Sodium Bicarbonate 325 mg 05/22/20 13:01 Sodium Bicarbonate 325 Mg Tab FEEDTUBE PRN PRN For Clogged Feeding Tube Sodium Chloride 10 ml 05/09/20 22:00 07/19/20 21:21 Sodium Chloride 0.9% 10 Ml Flush Syringe IV 10 ml BID DESIRE Administration Nutrition/Malnutrition Assess - Dietary Evaluation Nutrition/Malnutrition Findings: Nutrition Notes Start: 05/17/20 14:10 Freq: Status: Active Protocol: Document 07/16/20 13:58 AB (Rec: 07/16/20 14:09 AB [id number]) Co-Sign 07/16/20 13:58 MK Nutrition Notes Initial or Follow up Reassessment Current Diagnosis Acute Kidney Injury,Decubitus( Pressure Ulcer),Sepsis, Respiratory Failure Other Pertinent Diagnosis Bilat pneu, COVID-19 (+), EtOH dependence Current Diet Vital HP at 65 ml/hr Labs/Tests Na 132 K 3.4 Cr 0.3 BG 174 Pertinent Medications Reviewed Height 6 ft Weight 107.5 kg [place] Body Weight (kg) 80.90 BMI 32.1 Weight Status Obese Subjective/Other Information F/U for TF start/tolerance. Observed pt TF running at goal rate. Pt is no longer on vent . Percent of energy/protein needs met: 91%/100% Burn Absent Trauma Absent GI Symptoms None Current % PO Negligible Minimum of two criteria No physical signs of malnutrition #2 Nutrition Diagnosis Increased nutrient needs ( specify in comment below) Diagnosis Progress(for reassessment Continues documentation) #1 Nutrition Diagnosis Inadequate oral intake Diagnosis Progress(for reassessment Continues documentation) Is patient on ventilator? No Is Patient Ambulatory and/or Out of Bed No REE-([facility]-confined to bed) 2365.212 Kcal/Kg value to use for calculation 16 Approximate Energy Requirements Using 1720 kcal/Kg Calculation Used for Recommendations Kcal/kg Additional Notes Protein: 134-161 g (1.25-1.5 g /kg) Fluid: 1 ml/kcal Nutrition Intervention Change Diet Order: Continue current TF Nutrition Support: Vital HP at 65ml/hr with 50ml water flush q4h. For hyponatremia flush with 50 ml q6h. Kcal 1,560 Protein (gm) 136 Fluid (mL) 1,304 Goal #1 TF tolerance Goal #2 TF (at goal rate) to meet at least 75% energy and pro needs Anticipated Discharge Needs: Unable to determine at this time Follow-Up By: 07/23/20 Additional Comments F/U for TF tolerance
--- NOTE | 2020-07-20 08:56 | Progress Note ---
Subjective - Reason for Consult Consult date: 07/20/20 Reason for consult: MHE Requesting physician: MARIA DE JESUS CALZADA - Chief Complaint Chief complaint: ICU Nurse: Patient consumed almost 75% of his dinner well and was able to swallow his pills at 16:00. So, taken his NG tube out. Psych Progress Patient seen today, improved mood and affect, less disturbances reported, patient is alert and oriented. Delirium improving. MENTAL STATUS EXAMINATION General Appearance and Behavior: Age appropriate, good hygiene, wearing appropriate clothes, cooperative polite with questioning. Cooperation: engaged Psychomotor Behavior: Psychomotor normal Mood: feel better Affect and affective range: congruent with mood Thought Process: logical Thought Content: within reality Speech: Low volume, Regular rate and rhythm, Intellectual Functioning: improved Suicidal Ideation: none Homicidal Ideation: none Impulse Control: Unimpaired Insight and Judgment: unimpaired Memory: memory impaired Attention: alert and oriented Assessment and Plan - Psychiatric problem (1) Delirium due to another medical condition Current Visit: Yes Status: Acute F05 Treatment Continue current medications Started on olanzapine 2.5 nightly, increased to 5mg. Seroquel changed to 200 mg every morning MEDICATIONS: Risks, benefits and alternatives of medications discussed with the patient, questions answered and consent obtained from patient. PSYCHOTHERAPY: Supportive psychotherapy provided MEDICAL: Per primary team DELIRIUM PRECAUTIONS: Please re-orient patient frequently, keep lights on during the day, and minimize benzodiazepines and opiates as these medications could worsen patient's confusion. 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 Case discussed with Dr. Foster who agrees with current disposition FOLLOW-UP: Will follow Thank you for the consult. Please contact with any questions and/or concerns. Mental Status Exam - Vital signs Last Vital Signs Temp 98.7 F 07/20/20 04:00 Pulse 115 H 07/20/20 08:00 Resp 18 07/20/20 08:00 BP 125/77 07/20/20 08:00 Pulse Ox 99 07/20/20 08:00 Assessment and Plan - Patient Problems (1) Delirium due to another medical condition Current Visit: Yes Status: Acute
[2020-07-20] MEDS: guaiFENesin ER 600 MG TAB PO SCH ×2 (09:23→22:56)
[2020-07-20] MEDS: ENOXAPARIN 80 MG/0.8 ML INJ SUB-Q SCH ×2 (09:23→22:57)
[2020-07-20] MEDS: ENOXAPARIN 30 MG/0.3 ML INJ SUB-Q SCH ×2 (09:23→22:57)
[2020-07-20] MEDS: METOPROLOL TARTRATE 25 MG TAB PO SCH ×2 (09:24→22:56)
[2020-07-20] MEDS: methylPREDNISolone Sod Succinate 40 MG/1 ML INJ IV SCH (09:24)
[2020-07-20] MEDS: PHENobarbital 32.4 MG TAB PO SCH ×2 (09:24→22:56)
[2020-07-20] MEDS: MIDODRINE 5 MG TAB PO SCH ×3 (09:24→15:54)
[2020-07-20] MEDS: QUEtiapine 200 MG TAB PO SCH (09:24)
[2020-07-20] MEDS: FOLIC ACID 1 MG TAB PO SCH (09:25)
[2020-07-20] MEDS: LANSOPRAZOLE 30 MG SOLUTAB FEEDTUBE SCH (09:25)
[2020-07-20] MEDS: DOCUSATE SODIUM 100 MG/10 ML ORAL LIQD PO SCH ×2 (09:25→22:58)
--- NOTE | 2020-07-20 10:32 | Progress Note ---
Assessment and Plan Patient Awake. Having mild increased work of breathing. Patient is on Vapotherm , FIO2 50%. O2 saturation running LOW 80s. Increased FIO2 to 100% and O2 saturation went up to 98%. Patient afebrile and has leukocytosis. Patients D dimer 2911.42. Ferritin 2088. LDH 601. C reactive protein 2.7. Chest xray 05/17/20 reported Persistent diffuse patchy bilateral airspace disease. Apparent interval worsening Repeat chest xray 07/19/20 reported Bilateral pulmonary opacities persist. No pneumothorax. Patient finished course of REMDESIVIR, ceftrioxane and zithromax . Patient is on methylprednisone Cefepime,and S/C Lovenox therapeutic dose and Prevacid. I have seen the patient in [facility]. I spent critical care time of 35 minutes , Reviewing the chart,examining patient, Review labs , chest xray , talking to the respiratory therapy and nursing staff and work out plan of treatment in this critically sick patient. - Patient Problems (1) Acute respiratory failure due to COVID-19 Current Visit: Yes Status: Acute Plan to address problem: Patient is on vapotherm FIO2 100%. Continue solumedrol. Continue cefepime, Convert aerosol treatments to metered dose inhalers Continue S/C Lovenox.Therapeutic dose. Continue prevacid. Patient finished course of REMDESIVIR, Ceftrioxana and zithromax. (2) Bilateral pneumonia Current Visit: Yes Status: Acute Plan to address problem: Patient is on cefepime. (3) Acute kidney injury (SEN) with acute tubular necrosis (ATN) Current Visit: Yes Status: Acute Plan to address problem: Management as per nephrology. (4) Alcohol dependence Current Visit: Yes Status: Acute Qualifiers: Substance use status: uncomplicated Qualified Code(s): F10.20 - Alcohol dependence, uncomplicated Plan to address problem: Management as per primary care. (5) Elevated liver function tests Current Visit: Yes Status: Acute Plan to address problem: Liver enzymes elevated either from his alcoholic abuse or from COVID 19 infection. Subjective Date of service: 07/20/20 Principal diagnosis: Ac hypoxemic resp failure; COVID-19; Severe Sepsis; Shaggy PNA; Alcohol Abuse Interval history: Patient Awake. Having mild increased work of breathing. Patient is on Vapotherm , FIO2 50%. O2 saturation running LOW 80s. Increased FIO2 to 100% and O2 saturation went up to 98%. Patient afebrile and has leukocytosis. Patients D dimer 2911.42. Ferritin 2088. LDH 601. C reactive protein 2.7. Chest xray 05/17/20 reported Persistent diffuse patchy bilateral airspace disea se. Apparent interval worsening Repeat chest xray 07/19/20 reported Bilateral pulmonary opacities persist. No pneumothorax. Patient finished course of REMDESIVIR, ceftrioxane and zithromax . Patient is on methylprednisone Cefepime,and S/C Lovenox therapeutic dose and Prevacid. Objective Vital Signs - 12hr 07/19/20 07/20/20 07/20/20 23:00 00:00 00:46 Temperature 98.8 F Pulse Rate 110 H 107 H 108 H Pulse Rate [ 106 H From Monitor] Respiratory 32 H 28 H 26 H Rate Blood Pressure 111/71 111/71 125/68 O2 Sat by Pulse 97 86 97 Oximetry 07/20/20 07/20/20 07/20/20 01:00 02:00 03:00 Temperature Pulse Rate 109 H 108 H 108 H Pulse Rate [ From Monitor] Respiratory 25 H 30 H 28 H Rate Blood Pressure 123/68 103/70 100/73 O2 Sat by Pulse 99 99 99 Oximetry 07/20/20 07/20/20 07/20/20 04:00 04:45 05:00 Temperature 98.7 F Pulse Rate 112 H 103 H 113 H Pulse Rate [ 112 H From Monitor] Respiratory 31 H 24 24 Rate Blood Pressure 114/78 114/78 120/78 O2 Sat by Pulse 99 96 93 Oximetry 07/20/20 07/20/20 07/20/20 06:00 07:00 08:00 Temperature 98.6 F Pulse Rate 114 H 115 H 115 H Pulse Rate [ 115 H From Monitor] Respiratory 31 H 35 H 38 H Rate Blood Pressure 120/70 125/77 125/77 O2 Sat by Pulse 96 87 90 Oximetry 07/20/20 07/20/20 07/20/20 09:00 09:11 09:24 Temperature Pulse Rate 121 H 118 H Pulse Rate [ From Monitor] Respiratory 30 H Rate Blood Pressure 136/78 136/78 O2 Sat by Pulse 96 97 Oximetry 07/20/20 10:00 Temperature Pulse Rate 119 H Pulse Rate [ From Monitor] Respiratory 32 H Rate Blood Pressure 119/70 O2 Sat by Pulse 95 Oximetry Constitutional: no acute distress, alert, other (middle aged obese male with mildly increased respiratory effort at rest ) Eyes: non-icteric ENT: oropharynx moist, other (extubated) Neck: supple, no JVD Effort: mildly labored Ascultation: Bilateral: diminished breath sounds, rhonchi (scant), other (right chest tube) Percussion: Bilateral: not dull Cardiovascular: regular rate and rhythm, other (No R/M) Gastrointestinal: normoactive bowel sounds, soft, non-tender, non-distended (protuberant), other (distended and firm) Integumentary: normal Extremities: no cyanosis, no edema, pulses normal, no ischemia or petechiae Neurologic: non-focal exam (non focal grossly; weak), pupils equal and round, CN II-XII normal, motor strength normal and (very weak ) Psychiatric: mood appropriate, affect normal CBC and BMP: 07/18/20 08:47 07/18/20 08:47 ABG, PT/INR, D-dimer: ABG ABG pH 7.477 (7.320-7.450) H 07/13/20 13:52 POC ABG pCO2 54.4 mmHg (32.0-48.0) H 07/13/20 13:52 ABG pCO2 53.1 mm Hg 07/08/20 Unknown POC ABG pO2 126.8 mmHg (83-108) H 07/13/20 13:52 ABG pO2 75.3 mm Hg (80.0-90.0) L 07/08/20 Unknown POC ABG HCO3 39.3 07/13/20 13:52 ABG O2 Saturation 96.5 % (95.0-99.0) 07/08/20 Unknown PT/INR, D-dimer PT 11.8 Sec. (12.2-14.9) L 06/22/20 14:29 INR 0.88 (0.87-1.13) 06/22/20 14:29 D-Dimer 1887.82 ng/mlDDU (0-234) H 05/20/20 08:16 Abnormal lab findings: Abnormal Labs 05/09/20 05/09/20 05/09/20 12:59 12:59 12:59 WBC 11.8 H RBC Hgb Hct MCV 96 H MCH 34 H MCHC 35 H RDW Lymph % (Auto) 6.9 L Mathews % (Auto) Lymph # (Auto) 0.8 L Mathews # (Auto) Baso # (Auto) Seg Neutrophils % 87.5 H Seg Neuts % (Manual) Lymphocytes % (Manual) Nucleated RBC % Seg Neutrophils # 10.3 H Seg Neutrophils # Man Lymphocytes # (Manual) Monocytes # (Manual) Eosinophils # (Manual) PT INR APTT D-Dimer Heparin Anti-Xa Level ABG pH POC ABG pCO2 POC ABG pO2 ABG pO2 ABG HCO3 ABG O2 Saturation ABG Base Excess ABG Hemoglobin ABG Oxyhemoglobin ABG Sodium ABG Potassium ABG Chloride ABG Glucose Oxyhemoglobin Carboxyhemoglobin Sodium 130 L Potassium 3.5 L Chloride 86.4 L Carbon Dioxide BUN 33 H Creatinine 2.3 H Glucose 156 H POC Glucose Lactic Acid Calcium Magnesium Ferritin Total Bilirubin 3.40 H Direct Bilirubin 1.7 H AST 385 H ALT 134 H Alkaline Phosphatase Lactate Dehydrogenase C-Reactive Protein Total Protein Albumin 3.0 L Triglycerides Lipase Arterial Blood Glucose Arterial Blood Ionized Calcium Urine WBC (Auto) Coronavirus (PCR) SARS-CoV-2 IgG Ab Crossmatch 05/09/20 05/09/20 05/09/20 12:59 12:59 12:59 WBC RBC Hgb Hct MCV MCH MCHC RDW Lymph % (Auto) Mathews % (Auto) Lymph # (Auto) Mathews # (Auto) Baso # (Auto) Seg Neutrophils % Seg Neuts % (Manual) Lymphocytes % (Manual) Nucleated RBC % Seg Neutrophils # Seg Neutrophils # Man Lymphocytes # (Manual) Monocytes # (Manual) Eosinophils # (Manual) PT INR APTT D-Dimer 3242.51 H Heparin Anti-Xa Level ABG pH POC ABG pCO2 POC ABG pO2 ABG pO2 ABG HCO3 ABG O2 Saturation ABG Base Excess ABG Hemoglobin ABG Oxyhemoglobin ABG Sodium ABG Potassium ABG Chloride ABG Glucose Oxyhemoglobin Carboxyhemoglobin Sodium Potassium Chloride Carbon Dioxide BUN Creatinine Glucose 158 H POC Glucose Lactic Acid 3.50 H* Calcium Magnesium Ferritin Total Bilirubin Direct Bilirubin AST ALT Alkaline Phosphatase Lactate Dehydrogenase 2166 H C-Reactive Protein 39.00 H Total Protein Albumin Triglycerides Lipase Arterial Blood Glucose Arterial Blood Ionized Calcium Urine WBC (Auto) Coronavirus (PCR) SARS-CoV-2 IgG Ab Crossmatch 05/09/20 05/09/20 05/09/20 12:59 14:20 14:20 WBC RBC Hgb Hct MCV MCH MCHC RDW Lymph % (Auto) Mathews % (Auto) Lymph # (Auto) Mathews # (Auto) Baso # (Auto) Seg Neutrophils % Seg Neuts % (Manual) Lymphocytes % (Manual) Nucleated RBC % Seg Neutrophils # Seg Neutrophils # Man Lymphocytes # (Manual) Monocytes # (Manual) Eosinophils # (Manual) PT INR APTT D-Dimer 2861.78 H Heparin Anti-Xa Level ABG pH POC ABG pCO2 POC ABG pO2 ABG pO2 ABG HCO3 ABG O2 Saturation ABG Base Excess ABG Hemoglobin ABG Oxyhemoglobin ABG Sodium ABG Potassium ABG Chloride ABG Glucose Oxyhemoglobin Carboxyhemoglobin Sodium Potassium Chloride Carbon Dioxide BUN Creatinine Glucose POC Glucose Lactic Acid 2.20 H* Calcium Magnesium Ferritin 36841.0 H Total Bilirubin Direct Bilirubin AST ALT Alkaline Phosphatase Lactate Dehydrogenase C-Reactive Protein Total Protein Albumin Triglycerides Lipase Arterial Blood Glucose Arterial Blood Ionized Calcium Urine WBC (Auto) Coronavirus (PCR) SARS-CoV-2 IgG Ab Crossmatch 05/09/20 05/09/20 05/09/20 14:20 14:20 15:56 WBC RBC Hgb Hct MCV MCH MCHC RDW Lymph % (Auto) Mathews % (Auto) Lymph # (Auto) Mathews # (Auto) Baso # (Auto) Seg Neutrophils % Seg Neuts % (Manual) Lymphocytes % (Manual) Nucleated RBC % Seg Neutrophils # Seg Neutrophils # Man Lymphocytes # (Manual) Monocytes # (Manual) Eosinophils # (Manual) PT INR APTT D-Dimer Heparin Anti-Xa Level ABG pH POC ABG pCO2 POC ABG pO2 57.3 L ABG pO2 ABG HCO3 ABG O2 Saturation ABG Base Excess ABG Hemoglobin ABG Oxyhemoglobin 86.3 L ABG Sodium 129.9 L ABG Potassium ABG Chloride ABG Glucose 146 H Oxyhemoglobin Carboxyhemoglobin Sodium Potassium Chloride Carbon Dioxide BUN Creatinine Glucose 143 H POC Glucose Lactic Acid Calcium Magnesium Ferritin 08149.0 H Total Bilirubin Direct Bilirubin AST ALT Alkaline Phosphatase Lactate Dehydrogenase 1953 H C-Reactive Protein 33.50 H Total Protein Albumin Triglycerides Lipase Arterial Blood Glucose 146 H Arterial Blood Ionized Calcium 3.9 L Urine WBC (Auto) Coronavirus (PCR) SARS-CoV-2 IgG Ab Crossmatch 1105/10/20 05/10/20 10:32 10:32 18:50 WBC 15.4 H RBC Hgb Hct MCV 97 H MCH 33 H MCHC RDW 13.1 L Lymph % (Auto) Mathews % (Auto) Lymph # (Auto) Mathews # (Auto) Baso # (Auto) Seg Neutrophils % Seg Neuts % (Manual) 89.0 H Lymphocytes % (Manual) 8.0 L Nucleated RBC % Seg Neutrophils # Seg Neutrophils # Man 13.7 H Lymphocytes # (Manual) Monocytes # (Manual) Eosinophils # (Manual) PT INR APTT D-Dimer Heparin Anti-Xa Level ABG pH POC ABG pCO2 POC ABG pO2 ABG pO2 ABG HCO3 ABG O2 Saturation ABG Base Excess ABG Hemoglobin ABG Oxyhemoglobin ABG Sodium ABG Potassium ABG Chloride ABG Glucose Oxyhemoglobin Carboxyhemoglobin Sodium 136 L Potassium Chloride 97.4 L Carbon Dioxide BUN 37 H Creatinine 1.7 H Glucose 209 H POC Glucose Lactic Acid Calcium Magnesium Ferritin > 2000.0 H Total Bilirubin Direct Bilirubin AST ALT Alkaline Phosphatase Lactate Dehydrogenase C-Reactive Protein Total Protein Albumin Triglycerides Lipase Arterial Blood Glucose Arterial Blood Ionized Calcium Urine WBC (Auto) Coronavirus (PCR) SARS-CoV-2 IgG Ab Crossmatch 05/10/20 05/10/20 05/10/20 18:50 19:00 Unknown WBC RBC Hgb Hct MCV MCH MCHC RDW Lymph % (Auto) Mathews % (Auto) Lymph # (Auto) Mathews # (Auto) Baso # (Auto) Seg Neutrophils % Seg Neuts % (Manual) Lymphocytes % (Manual) Nucleated RBC % Seg Neutrophils # Seg Neutrophils # Man Lymphocytes # (Manual) Monocytes # (Manual) Eosinophils # (Manual) PT INR APTT D-Dimer > 90084 H Heparin Anti-Xa Level ABG pH POC ABG pCO2 POC ABG pO2 ABG pO2 ABG HCO3 ABG O2 Saturation ABG Base Excess ABG Hemoglobin ABG Oxyhemoglobin ABG Sodium ABG Potassium ABG Chloride ABG Glucose Oxyhemoglobin Carboxyhemoglobin Sodium Potassium Chloride Carbon Dioxide BUN Creatinine Glucose POC Glucose Lactic Acid Calcium Magnesium Ferritin Total Bilirubin Direct Bilirubin AST ALT Alkaline Phosphatase Lactate Dehydrogenase 1879 H C-Reactive Protein 24.80 H Total Protein Albumin Triglycerides Lipase Arterial Blood Glucose Arterial Blood Ionized Calcium Urine WBC (Auto) 11.0 H Coronavirus (PCR) SARS-CoV-2 IgG Ab Crossmatch 05/10/20 05/11/20 05/11/20 Unknown 07:30 07:30 WBC RBC Hgb Hct MCV MCH MCHC RDW Lymph % (Auto) Mathews % (Auto) Lymph # (Auto) Mathews # (Auto) Baso # (Auto) Seg Neutrophils % Seg Neuts % (Manual) Lymphocytes % (Manual) Nucleated RBC % Seg Neutrophils # Seg Neutrophils # Man Lymphocytes # (Manual) Monocytes # (Manual) Eosinophils # (Manual) PT INR APTT D-Dimer > 2000 H Heparin Anti-Xa Level ABG pH POC ABG pCO2 POC ABG pO2 ABG pO2 ABG HCO3 ABG O2 Saturation ABG Base Excess ABG Hemoglobin ABG Oxyhemoglobin ABG Sodium ABG Potassium ABG Chloride ABG Glucose Oxyhemoglobin Carboxyhemoglobin Sodium Potassium Chloride 96.3 L Carbon Dioxide BUN 36 H Creatinine Glucose 161 H POC Glucose Lactic Acid Calcium 8.3 L Magnesium Ferritin Total Bilirubin 1.50 H Direct Bilirubin 0.6 H AST 178 H ALT 111 H Alkaline Phosphatase Lactate Dehydrogenase C-Reactive Protein Total Protein Albumin 3.0 L Triglycerides Lipase Arterial Blood Glucose Arterial Blood Ionized Calcium Urine WBC (Auto) Coronavirus (PCR) Positive A SARS-CoV-2 IgG Ab Crossmatch 05/11/20 05/11/20 05/11/20 07:30 07:30 07:30 WBC RBC Hgb Hct MCV MCH MCHC RDW Lymph % (Auto) Mathews % (Auto) Lymph # (Auto) Mathews # (Auto) Baso # (Auto) Seg Neutrophils % Seg Neuts % (Manual) Lymphocytes % (Manual) Nucleated RBC % Seg Neutrophils # Seg Neutrophils # Man Lymphocytes # (Manual) Monocytes # (Manual) Eosinophils # (Manual) PT INR APTT D-Dimer Heparin Anti-Xa Level ABG pH POC ABG pCO2 POC ABG pO2 ABG pO2 ABG HCO3 ABG O2 Saturation ABG Base Excess ABG Hemoglobin ABG Oxyhemoglobin ABG Sodium ABG Potassium ABG Chloride ABG Glucose Oxyhemoglobin Carboxyhemoglobin Sodium Potassium Chloride Carbon Dioxide BUN Creatinine Glucose POC Glucose Lactic Acid Calcium Magnesium Ferritin 81519.0 H Total Bilirubin Direct Bilirubin AST ALT Alkaline Phosphatase Lactate Dehydrogenase 1523 H C-Reactive Protein 12.90 H Total Protein Albumin Triglycerides Lipase Arterial Blood Glucose Arterial Blood Ionized Calcium Urine WBC (Auto) Coronavirus (PCR) SARS-CoV-2 IgG Ab Reactive A Crossmatch 1105/13/20 05/15/20 05:20 05:20 08:15 WBC RBC Hgb Hct MCV MCH MCHC RDW Lymph % (Auto) Mathews % (Auto) Lymph # (Auto) Mathews # (Auto) Baso # (Auto) Seg Neutrophils % Seg Neuts % (Manual) Lymphocytes % (Manual) Nucleated RBC % Seg Neutrophils # Seg Neutrophils # Man Lymphocytes # (Manual) Monocytes # (Manual) Eosinophils # (Manual) PT INR APTT D-Dimer > 82718 H 5318.28 H Heparin Anti-Xa Level ABG pH POC ABG pCO2 POC ABG pO2 ABG pO2 ABG HCO3 ABG O2 Saturation ABG Base Excess ABG Hemoglobin ABG Oxyhemoglobin ABG Sodium ABG Potassium ABG Chloride ABG Glucose Oxyhemoglobin Carboxyhemoglobin Sodium Potassium Chloride Carbon Dioxide 32 H BUN 30 H Creatinine Glucose 156 H POC Glucose Lactic Acid Calcium Magnesium 2.60 H Ferritin Total Bilirubin 1.40 H Direct Bilirubin AST 121 H ALT 119 H Alkaline Phosphatase Lactate Dehydrogenase 957 H C-Reactive Protein 4.00 H Total Protein Albumin 3.0 L Triglycerides Lipase Arterial Blood Glucose Arterial Blood Ionized Calcium Urine WBC (Auto) Coronavirus (PCR) SARS-CoV-2 IgG Ab Crossmatch 05/15/20 05/15/20 05/15/20 08:15 08:15 08:15 WBC 12.4 H RBC Hgb Hct MCV 98 H MCH 33 H MCHC RDW Lymph % (Auto) 9.7 L Mathews % (Auto) Lymph # (Auto) Mathews # (Auto) Baso # (Auto) Seg Neutrophils % 86.8 H Seg Neuts % (Manual) Lymphocytes % (Manual) Nucleated RBC % Seg Neutrophils # 10.8 H Seg Neutrophils # Man Lymphocytes # (Manual) Monocytes # (Manual) Eosinophils # (Manual) PT INR APTT D-Dimer Heparin Anti-Xa Level ABG pH POC ABG pCO2 POC ABG pO2 ABG pO2 ABG HCO3 ABG O2 Saturation ABG Base Excess ABG Hemoglobin ABG Oxyhemoglobin ABG Sodium ABG Potassium ABG Chloride ABG Glucose Oxyhemoglobin Carboxyhemoglobin Sodium Potassium Chloride 94.8 L Carbon Dioxide 32 H BUN 22 H Creatinine Glucose 115 H POC Glucose Lactic Acid Calcium 8.3 L Magnesium Ferritin 2494.0 H Total Bilirubin Direct Bilirubin AST 73 H ALT 121 H Alkaline Phosphatase Lactate Dehydrogenase 835 H C-Reactive Protein 3.40 H Total Protein 6.1 L Albumin 3.0 L Triglycerides Lipase Arterial Blood Glucose Arterial Blood Ionized Calcium Urine WBC (Auto) Coronavirus (PCR) SARS-CoV-2 IgG Ab Crossmatch 05/17/20 05/17/20 05/17/20 05:50 05:50 05:50 WBC RBC Hgb Hct MCV MCH MCHC RDW Lymph % (Auto) Mathews % (Auto) Lymph # (Auto) Mathews # (Auto) Baso # (Auto) Seg Neutrophils % Seg Neuts % (Manual) Lymphocytes % (Manual) Nucleated RBC % Seg Neutrophils # Seg Neutrophils # Man Lymphocytes # (Manual) Monocytes # (Manual) Eosinophils # (Manual) PT INR APTT D-Dimer 2911.42 H Heparin Anti-Xa Level ABG pH POC ABG pCO2 POC ABG pO2 ABG pO2 ABG HCO3 ABG O2 Saturation ABG Base Excess ABG Hemoglobin ABG Oxyhemoglobin ABG Sodium ABG Potassium ABG Chloride ABG Glucose Oxyhemoglobin Carboxyhemoglobin Sodium 136 L Potassium Chloride 96.0 L Carbon Dioxide 34 H BUN 22 H Creatinine Glucose 140 H POC Glucose Lactic Acid Calcium Magnesium Ferritin 2082.0 H Total Bilirubin Direct Bilirubin AST ALT 75 H Alkaline Phosphatase Lactate Dehydrogenase 601 H C-Reactive Protein 2.70 H Total Protein Albumin 2.9 L Triglycerides Lipase Arterial Blood Glucose Arterial Blood Ionized Calcium Urine WBC (Auto) Coronavirus (PCR) SARS-CoV-2 IgG Ab Crossmatch 05/17/20 05/18/20 05/20/20 05:50 12:22 08:16 WBC RBC Hgb Hct MCV 98 H MCH 33 H MCHC RDW Lymph % (Auto) 8.0 L Mathews % (Auto) Lymph # (Auto) 0.8 L Mathews # (Auto) Baso # (Auto) Seg Neutrophils % 89.3 H Seg Neuts % (Manual) Lymphocytes % (Manual) Nucleated RBC % Seg Neutrophils # 8.8 H Seg Neutrophils # Man Lymphocytes # (Manual) Monocytes # (Manual) Eosinophils # (Manual) PT INR APTT D-Dimer 1887.82 H Heparin Anti-Xa Level ABG pH POC ABG pCO2 POC ABG pO2 ABG pO2 ABG HCO3 ABG O2 Saturation ABG Base Excess ABG Hemoglobin ABG Oxyhemoglobin ABG Sodium ABG Potassium ABG Chloride ABG Glucose Oxyhemoglobin Carboxyhemoglobin Sodium Potassium Chloride Carbon Dioxide BUN Creatinine Glucose POC Glucose 178 H Lactic Acid Calcium Magnesium Ferritin Total Bilirubin Direct Bilirubin AST ALT Alkaline Phosphatase Lactate Dehydrogenase C-Reactive Protein Total Protein Albumin Triglycerides Lipase Arterial Blood Glucose Arterial Blood Ionized Calcium Urine WBC (Auto) Coronavirus (PCR) SARS-CoV-2 IgG Ab Crossmatch 05/20/20 05/20/20 05/21/20 08:16 08:16 21:10 WBC RBC Hgb Hct MCV MCH MCHC RDW Lymph % (Auto) Mathews % (Auto) Lymph # (Auto) Mathews # (Auto) Baso # (Auto) Seg Neutrophils % Seg Neuts % (Manual) Lymphocytes % (Manual) Nucleated RBC % Seg Neutrophils # Seg Neutrophils # Man Lymphocytes # (Manual) Monocytes # (Manual) Eosinophils # (Manual) PT INR APTT D-Dimer Heparin Anti-Xa Level ABG pH 7.483 H POC ABG pCO2 POC ABG pO2 ABG pO2 50.0 L ABG HCO3 27.0 H ABG O2 Saturation 86.2 L ABG Base Excess 3.7 H ABG Hemoglobin ABG Oxyhemoglobin ABG Sodium ABG Potassium ABG Chloride ABG Glucose Oxyhemoglobin 84.2 L Carboxyhemoglobin Sodium Potassium Chloride Carbon Dioxide BUN Creatinine Glucose POC Glucose Lactic Acid Calcium Magnesium Ferritin 1960.0 H Total Bilirubin Direct Bilirubin AST ALT Alkaline Phosphatase Lactate Dehydrogenase 705 H C-Reactive Protein 3.10 H Total Protein Albumin Triglycerides Lipase Arterial Blood Glucose Arterial Blood Ionized Calcium Urine WBC (Auto) Coronavirus (PCR) SARS-CoV-2 IgG Ab Crossmatch 05/22/20 05/22/20 05/22/20 04:01 07:53 07:53 WBC 19.2 H RBC Hgb Hct MCV 98 H MCH 34 H MCHC RDW Lymph % (Auto) Mathews % (Auto) Lymph # (Auto) Mathews # (Auto) Baso # (Auto) Seg Neutrophils % Seg Neuts % (Manual) 96.0 H Lymphocytes % (Manual) 1.0 L Nucleated RBC % Seg Neutrophils # Seg Neutrophils # Man 18.4 H Lymphocytes # (Manual) 0.2 L Monocytes # (Manual) Eosinophils # (Manual) PT INR APTT D-Dimer Heparin Anti-Xa Level ABG pH POC ABG pCO2 53.8 H POC ABG pO2 125.5 H ABG pO2 ABG HCO3 ABG O2 Saturation ABG Base Excess ABG Hemoglobin ABG Oxyhemoglobin ABG Sodium 131.8 L ABG Potassium 4.8 H ABG Chloride 94.0 L ABG Glucose 163 H Oxyhemoglobin Carboxyhemoglobin Sodium 131 L Potassium Chloride 93.4 L Carbon Dioxide BUN 40 H Creatinine Glucose 176 H POC Glucose Lactic Acid Calcium Magnesium 2.70 H Ferritin Total Bilirubin 1.80 H Direct Bilirubin AST 45 H ALT 116 H Alkaline Phosphatase 181 H Lactate Dehydrogenase C-Reactive Protein Total Protein Albumin 2.6 L Triglycerides Lipase Arterial Blood Glucose 163 H Arterial Blood Ionized Calcium 4.5 L Urine WBC (Auto) Coronavirus (PCR) SARS-CoV-2 IgG Ab Crossmatch 05/23/20 05/24/20 05/24/20 04:17 03:07 04:08 WBC RBC Hgb Hct MCV MCH MCHC RDW Lymph % (Auto) Mathews % (Auto) Lymph # (Auto) Mathews # (Auto) Baso # (Auto) Seg Neutrophils % Seg Neuts % (Manual) Lymphocytes % (Manual) Nucleated RBC % Seg Neutrophils # Seg Neutrophils # Man Lymphocytes # (Manual) Monocytes # (Manual) Eosinophils # (Manual) PT INR APTT D-Dimer Heparin Anti-Xa Level ABG pH 7.328 L POC ABG pCO2 POC ABG pO2 ABG pO2 72.8 L 73.4 L ABG HCO3 31.0 H 34.0 H ABG O2 Saturation 93.5 L ABG Base Excess 3.5 H 7.7 H ABG Hemoglobin 13.3 L 12.1 L ABG Oxyhemoglobin ABG Sodium ABG Potassium ABG Chloride ABG Glucose Oxyhemoglobin 91.5 L 94.3 L Carboxyhemoglobin Sodium Potassium Chloride Carbon Dioxide BUN Creatinine Glucose POC Glucose 155 H Lactic Acid Calcium Magnesium Ferritin Total Bilirubin Direct Bilirubin AST ALT Alkaline Phosphatase Lactate Dehydrogenase C-Reactive Protein Total Protein Albumin Triglycerides Lipase Arterial Blood Glucose Arterial Blood Ionized Calcium Urine WBC (Auto) Coronavirus (PCR) SARS-CoV-2 IgG Ab Crossmatch 05/24/20 05/24/20 05/24/20 09:33 12:21 17:52 WBC RBC Hgb Hct MCV MCH MCHC RDW Lymph % (Auto) Mathews % (Auto) Lymph # (Auto) Mathews # (Auto) Baso # (Auto) Seg Neutrophils % Seg Neuts % (Manual) Lymphocytes % (Manual) Nucleated RBC % Seg Neutrophils # Seg Neutrophils # Man Lymphocytes # (Manual) Monocytes # (Manual) Eosinophils # (Manual) PT INR APTT D-Dimer Heparin Anti-Xa Level ABG pH POC ABG pCO2 POC ABG pO2 ABG pO2 ABG HCO3 ABG O2 Saturation ABG Base Excess ABG Hemoglobin ABG Oxyhemoglobin ABG Sodium ABG Potassium ABG Chloride ABG Glucose Oxyhemoglobin Carboxyhemoglobin Sodium Potassium Chloride Carbon Dioxide 34 H D BUN 28 H Creatinine 0.7 L Glucose 168 H POC Glucose 173 H 164 H Lactic Acid Calcium Magnesium Ferritin Total Bilirubin Direct Bilirubin AST ALT Alkaline Phosphatase Lactate Dehydrogenase C-Reactive Protein Total Protein Albumin Triglycerides Lipase Arterial Blood Glucose Arterial Blood Ionized Calcium Urine WBC (Auto) Coronavirus (PCR) SARS-CoV-2 IgG Ab Crossmatch 05/24/20 05/25/20 05/25/20 23:47 04:29 05:46 WBC RBC Hgb Hct MCV MCH MCHC RDW Lymph % (Auto) Mathews % (Auto) Lymph # (Auto) Mathews # (Auto) Baso # (Auto) Seg Neutrophils % Seg Neuts % (Manual) Lymphocytes % (Manual) Nucleated RBC % Seg Neutrophils # Seg Neutrophils # Man Lymphocytes # (Manual) Monocytes # (Manual) Eosinophils # (Manual) PT INR APTT D-Dimer Heparin Anti-Xa Level ABG pH POC ABG pCO2 68.6 H POC ABG pO2 ABG pO2 ABG HCO3 ABG O2 Saturation ABG Base Excess ABG Hemoglobin ABG Oxyhemoglobin ABG Sodium ABG Potassium 4.7 H ABG Chloride ABG Glucose 226 H Oxyhemoglobin Carboxyhemoglobin Sodium Potassium Chloride Carbon Dioxide BUN Creatinine Glucose POC Glucose 171 H 201 H Lactic Acid Calcium Magnesium Ferritin Total Bilirubin Direct Bilirubin AST ALT Alkaline Phosphatase Lactate Dehydrogenase C-Reactive Protein Total Protein Albumin Triglycerides Lipase Arterial Blood Glucose 226 H Arterial Blood Ionized Calcium Urine WBC (Auto) Coronavirus (PCR) SARS-CoV-2 IgG Ab Crossmatch 05/25/20 05/25/20 05/25/20 08:37 08:37 12:38 WBC 12.0 H RBC 3.64 L Hgb Hct MCV 99 H MCH 33 H MCHC RDW Lymph % (Auto) Mathews % (Auto) Lymph # (Auto) Mathews # (Auto) Baso # (Auto) Seg Neutrophils % Seg Neuts % (Manual) Lymphocytes % (Manual) Nucleated RBC % Seg Neutrophils # Seg Neutrophils # Man Lymphocytes # (Manual) Monocytes # (Manual) Eosinophils # (Manual) PT INR APTT D-Dimer Heparin Anti-Xa Level ABG pH POC ABG pCO2 POC ABG pO2 ABG pO2 ABG HCO3 ABG O2 Saturation ABG Base Excess ABG Hemoglobin ABG Oxyhemoglobin ABG Sodium ABG Potassium ABG Chloride ABG Glucose Oxyhemoglobin Carboxyhemoglobin Sodium Potassium Chloride 97.3 L Carbon Dioxide 35 H BUN 25 H Creatinine 0.7 L Glucose 191 H POC Glucose 182 H Lactic Acid Calcium Magnesium Ferritin Total Bilirubin Direct Bilirubin AST ALT Alkaline Phosphatase Lactate Dehydrogenase C-Reactive Protein Total Protein Albumin Triglycerides Lipase Arterial Blood Glucose Arterial Blood Ionized Calcium Urine WBC (Auto) Coronavirus (PCR) SARS-CoV-2 IgG Ab Crossmatch 05/25/20 05/26/20 05/26/20 18:16 00:06 04:50 WBC RBC Hgb Hct MCV MCH MCHC RDW Lymph % (Auto) Mathews % (Auto) Lymph # (Auto) Mathews # (Auto) Baso # (Auto) Seg Neutrophils % Seg Neuts % (Manual) Lymphocytes % (Manual) Nucleated RBC % Seg Neutrophils # Seg Neutrophils # Man Lymphocytes # (Manual) Monocytes # (Manual) Eosinophils # (Manual) PT INR APTT D-Dimer Heparin Anti-Xa Level ABG pH POC ABG pCO2 POC ABG pO2 ABG pO2 221.5 H ABG HCO3 40.4 H ABG O2 Saturation 99.3 H ABG Base Excess 12.8 H ABG Hemoglobin 10.4 L ABG Oxyhemoglobin ABG Sodium ABG Potassium ABG Chloride ABG Glucose Oxyhemoglobin Carboxyhemoglobin Sodium Potassium Chloride Carbon Dioxide BUN Creatinine Glucose POC Glucose 176 H 152 H Lactic Acid Calcium Magnesium Ferritin Total Bilirubin Direct Bilirubin AST ALT Alkaline Phosphatase Lactate Dehydrogenase C-Reactive Protein Total Protein Albumin Triglycerides Lipase Arterial Blood Glucose Arterial Blood Ionized Calcium Urine WBC (Auto) Coronavirus (PCR) SARS-CoV-2 IgG Ab Crossmatch 05/26/20 05/26/20 05/26/20 06:11 07:51 07:51 WBC 13.4 H RBC 3.64 L Hgb Hct MCV 98 H MCH 33 H MCHC RDW Lymph % (Auto) Mathews % (Auto) Lymph # (Auto) Mathews # (Auto) Baso # (Auto) Seg Neutrophils % Seg Neuts % (Manual) Lymphocytes % (Manual) Nucleated RBC % Seg Neutrophils # Seg Neutrophils # Man Lymphocytes # (Manual) Monocytes # (Manual) Eosinophils # (Manual) PT INR APTT D-Dimer Heparin Anti-Xa Level ABG pH POC ABG pCO2 POC ABG pO2 ABG pO2 ABG HCO3 ABG O2 Saturation ABG Base Excess ABG Hemoglobin ABG Oxyhemoglobin ABG Sodium ABG Potassium ABG Chloride ABG Glucose Oxyhemoglobin Carboxyhemoglobin Sodium Potassium Chloride 96.6 L Carbon Dioxide 39 H BUN 29 H Creatinine 0.7 L Glucose 174 H POC Glucose 165 H Lactic Acid Calcium Magnesium Ferritin Total Bilirubin Direct Bilirubin AST ALT Alkaline Phosphatase Lactate Dehydrogenase C-Reactive Protein Total Protein Albumin Triglycerides Lipase Arterial Blood Glucose Arterial Blood Ionized Calcium Urine WBC (Auto) Coronavirus (PCR) SARS-CoV-2 IgG Ab Crossmatch 05/26/20 05/27/20 05/27/20 23:23 03:43 05:29 WBC RBC Hgb Hct MCV MCH MCHC RDW Lymph % (Auto) Mathews % (Auto) Lymph # (Auto) Mathews # (Auto) Baso # (Auto) Seg Neutrophils % Seg Neuts % (Manual) Lymphocytes % (Manual) Nucleated RBC % Seg Neutrophils # Seg Neutrophils # Man Lymphocytes # (Manual) Monocytes # (Manual) Eosinophils # (Manual) PT INR APTT D-Dimer Heparin Anti-Xa Level ABG pH 7.480 H POC ABG pCO2 52.4 H POC ABG pO2 61.4 L ABG pO2 ABG HCO3 ABG O2 Saturation ABG Base Excess ABG Hemoglobin ABG Oxyhemoglobin ABG Sodium 134.9 L ABG Potassium ABG Chloride 95.0 L ABG Glucose 221 H Oxyhemoglobin Carboxyhemoglobin Sodium Potassium Chloride Carbon Dioxide BUN Creatinine Glucose POC Glucose 169 H 227 H Lactic Acid Calcium Magnesium Ferritin Total Bilirubin Direct Bilirubin AST ALT Alkaline Phosphatase Lactate Dehydrogenase C-Reactive Protein Total Protein Albumin Triglycerides Lipase Arterial Blood Glucose 221 H Arterial Blood Ionized Calcium 4.5 L Urine WBC (Auto) Coronavirus (PCR) SARS-CoV-2 IgG Ab Crossmatch 05/27/20 05/27/20 05/27/20 07:19 12:18 13:50 WBC RBC Hgb Hct MCV MCH MCHC RDW Lymph % (Auto) Mathews % (Auto) Lymph # (Auto) [place]ws # (Auto) Baso # (Auto) Seg Neutrophils % Seg Neuts % (Manual) Lymphocytes % (Manual) Nucleated RBC % Seg Neutrophils # Seg Neutrophils # Man Lymphocytes # (Manual) Monocytes # (Manual) Eosinophils # (Manual) PT INR APTT D-Dimer Heparin Anti-Xa Level ABG pH POC ABG pCO2 POC ABG pO2 ABG pO2 ABG HCO3 ABG O2 Saturation ABG Base Excess ABG Hemoglobin ABG Oxyhemoglobin ABG Sodium ABG Potassium ABG Chloride ABG Glucose Oxyhemoglobin Carboxyhemoglobin Sodium Potassium Chloride Carbon Dioxide BUN Creatinine Glucose POC Glucose 114 H 148 H Lactic Acid Calcium Magnesium Ferritin Total Bilirubin Direct Bilirubin AST ALT Alkaline Phosphatase Lactate Dehydrogenase C-Reactive Protein Total Protein Albumin Triglycerides 247 H Lipase Arterial Blood Glucose Arterial Blood Ionized Calcium Urine WBC (Auto) Coronavirus (PCR) SARS-CoV-2 IgG Ab Crossmatch 05/28/20 05/28/20 05/28/20 00:13 04:16 05:22 WBC RBC Hgb Hct MCV MCH MCHC RDW Lymph % (Auto) [place]ws % (Auto) Lymph # (Auto) [place]ws # (Auto) Baso # (Auto) Seg Neutrophils % Seg Neuts % (Manual) Lymphocytes % (Manual) Nucleated RBC % Seg Neutrophils # Seg Neutrophils # Man Lymphocytes # (Manual) Monocytes # (Manual) Eosinophils # (Manual) PT INR APTT D-Dimer Heparin Anti-Xa Level ABG pH POC ABG pCO2 64.4 H POC ABG pO2 60.5 L ABG pO2 ABG HCO3 ABG O2 Saturation ABG Base Excess ABG Hemoglobin ABG Oxyhemoglobin ABG Sodium ABG Potassium ABG Chloride 95.0 L ABG Glucose 209 H Oxyhemoglobin Carboxyhemoglobin Sodium Potassium Chloride Carbon Dioxide BUN Creatinine Glucose POC Glucose 155 H 186 H Lactic Acid Calcium Magnesium Ferritin Total Bilirubin Direct Bilirubin AST ALT Alkaline Phosphatase Lactate Dehydrogenase C-Reactive Protein Total Protein Albumin Triglycerides Lipase Arterial Blood Glucose 209 H Arterial Blood Ionized Calcium Urine WBC (Auto) Coronavirus (PCR) SARS-CoV-2 IgG Ab Crossmatch 05/28/20 05/28/20 05/29/20 12:45 17:39 00:37 WBC RBC Hgb Hct MCV MCH MCHC RDW Lymph % (Auto) [place]ws % (Auto) Lymph # (Auto) [place]ws # (Auto) Baso # (Auto) Seg Neutrophils % Seg Neuts % (Manual) Lymphocytes % (Manual) Nucleated RBC % Seg Neutrophils # Seg Neutrophils # Man Lymphocytes # (Manual) Monocytes # (Manual) Eosinophils # (Manual) PT INR APTT D-Dimer Heparin Anti-Xa Level ABG pH POC ABG pCO2 POC ABG pO2 ABG pO2 ABG HCO3 ABG O2 Saturation ABG Base Excess ABG Hemoglobin ABG Oxyhemoglobin ABG Sodium ABG Potassium ABG Chloride ABG Glucose Oxyhemoglobin Carboxyhemoglobin Sodium Potassium Chloride Carbon Dioxide BUN Creatinine Glucose POC Glucose 143 H 164 H 221 H Lactic Acid Calcium Magnesium Ferritin Total Bilirubin Direct Bilirubin AST ALT Alkaline Phosphatase Lactate Dehydrogenase C-Reactive Protein Total Protein Albumin Triglycerides Lipase Arterial Blood Glucose Arterial Blood Ionized Calcium Urine WBC (Auto) Coronavirus (PCR) SARS-CoV-2 IgG Ab Crossmatch 05/29/20 05/29/20 05/29/20 04:15 05:33 12:34 WBC RBC Hgb Hct MCV MCH MCHC RDW Lymph % (Auto) [place]ws % (Auto) Lymph # (Auto) [place]ws # (Auto) Baso # (Auto) Seg Neutrophils % Seg Neuts % (Manual) Lymphocytes % (Manual) Nucleated RBC % Seg Neutrophils # Seg Neutrophils # Man Lymphocytes # (Manual) Monocytes # (Manual) Eosinophils # (Manual) PT INR APTT D-Dimer Heparin Anti-Xa Level ABG pH 7.463 H POC ABG pCO2 56.3 H POC ABG pO2 81.2 L ABG pO2 ABG HCO3 ABG O2 Saturation ABG Base Excess ABG Hemoglobin ABG Oxyhemoglobin ABG Sodium ABG Potassium ABG Chloride 96.0 L ABG Glucose 194 H Oxyhemoglobin Carboxyhemoglobin Sodium Potassium Chloride Carbon Dioxide BUN Creatinine Glucose POC Glucose 133 H 221 H Lactic Acid Calcium Magnesium Ferritin Total Bilirubin Direct Bilirubin AST ALT Alkaline Phosphatase Lactate Dehydrogenase C-Reactive Protein Total Protein Albumin Triglycerides Lipase Arterial Blood Glucose 194 H Arterial Blood Ionized Calcium 4.5 L Urine WBC (Auto) Coronavirus (PCR) SARS-CoV-2 IgG Ab Crossmatch 05/29/20 05/30/20 05/30/20 18:07 00:12 05:38 WBC RBC Hgb Hct MCV MCH MCHC RDW Lymph % (Auto) [place]ws % (Auto) Lymph # (Auto) [place]ws # (Auto) Baso # (Auto) Seg Neutrophils % Seg Neuts % (Manual) Lymphocytes % (Manual) Nucleated RBC % Seg Neutrophils # Seg Neutrophils # Man Lymphocytes # (Manual) Monocytes # (Manual) Eosinophils # (Manual) PT INR APTT D-Dimer Heparin Anti-Xa Level ABG pH POC ABG pCO2 POC ABG pO2 ABG pO2 ABG HCO3 ABG O2 Saturation ABG Base Excess ABG Hemoglobin ABG Oxyhemoglobin ABG Sodium ABG Potassium ABG Chloride ABG Glucose Oxyhemoglobin Carboxyhemoglobin Sodium Potassium Chloride Carbon Dioxide BUN Creatinine Glucose POC Glucose 162 H 190 H 208 H Lactic Acid Calcium Magnesium Ferritin Total Bilirubin Direct Bilirubin AST ALT Alkaline Phosphatase Lactate Dehydrogenase C-Reactive Protein Total Protein Albumin Triglycerides Lipase Arterial Blood Glucose Arterial Blood Ionized Calcium Urine WBC (Auto) Coronavirus (PCR) SARS-CoV-2 IgG Ab Crossmatch 05/30/20 05/30/20 05/30/20 09:30 11:35 11:54 WBC 12.4 H RBC 3.48 L Hgb 11.3 L Hct 34.6 L MCV 99 H MCH 33 H MCHC RDW Lymph % (Auto) [place]ws % (Auto) Lymph # (Auto) Mathews # (Auto) Baso # (Auto) Seg Neutrophils % Seg Neuts % (Manual) Lymphocytes % (Manual) Nucleated RBC % Seg Neutrophils # Seg Neutrophils # Man Lymphocytes # (Manual) Monocytes # (Manual) Eosinophils # (Manual) PT INR APTT D-Dimer Heparin Anti-Xa Level ABG pH 7.455 H POC ABG pCO2 57.5 H POC ABG pO2 81.5 L ABG pO2 ABG HCO3 ABG O2 Saturation ABG Base Excess ABG Hemoglobin ABG Oxyhemoglobin ABG Sodium ABG Potassium ABG Chloride 96.0 L ABG Glucose 204 H Oxyhemoglobin Carboxyhemoglobin Sodium Potassium Chloride Carbon Dioxide BUN Creatinine Glucose POC Glucose 183 H Lactic Acid Calcium Magnesium Ferritin Total Bilirubin Direct Bilirubin AST ALT Alkaline Phosphatase Lactate Dehydrogenase C-Reactive Protein Total Protein Albumin Triglycerides Lipase Arterial Blood Glucose 204 H Arterial Blood Ionized Calcium Urine WBC (Auto) Coronavirus (PCR) SARS-CoV-2 IgG Ab Crossmatch 05/30/20 05/31/20 05/31/20 18:01 00:10 03:22 WBC RBC Hgb Hct MCV MCH MCHC RDW Lymph % (Auto) [place]ws % (Auto) Lymph # (Auto) [place]ws # (Auto) Baso # (Auto) Seg Neutrophils % Seg Neuts % (Manual) Lymphocytes % (Manual) Nucleated RBC % Seg Neutrophils # Seg Neutrophils # Man Lymphocytes # (Manual) Monocytes # (Manual) Eosinophils # (Manual) PT INR APTT D-Dimer Heparin Anti-Xa Level ABG pH POC ABG pCO2 60.4 H POC ABG pO2 71.5 L ABG pO2 ABG HCO3 ABG O2 Saturation ABG Base Excess ABG Hemoglobin ABG Oxyhemoglobin ABG Sodium ABG Potassium ABG Chloride 96.0 L ABG Glucose 169 H Oxyhemoglobin Carboxyhemoglobin Sodium Potassium Chloride Carbon Dioxide BUN Creatinine Glucose POC Glucose 184 H 135 H Lactic Acid Calcium Magnesium Ferritin Total Bilirubin Direct Bilirubin AST ALT Alkaline Phosphatase Lactate Dehydrogenase C-Reactive Protein Total Protein Albumin Triglycerides Lipase Arterial Blood Glucose 169 H Arterial Blood Ionized Calcium 4.5 L Urine WBC (Auto) Coronavirus (PCR) SARS-CoV-2 IgG Ab Crossmatch 05/31/20 05/31/20 05/31/20 05:24 11:18 14:41 WBC RBC Hgb Hct MCV MCH MCHC RDW Lymph % (Auto) [place]ws % (Auto) Lymph # (Auto) [place]ws # (Auto) Baso # (Auto) Seg Neutrophils % Seg Neuts % (Manual) Lymphocytes % (Manual) Nucleated RBC % Seg Neutrophils # Seg Neutrophils # Man Lymphocytes # (Manual) Monocytes # (Manual) Eosinophils # (Manual) PT INR APTT D-Dimer Heparin Anti-Xa Level ABG pH POC ABG pCO2 POC ABG pO2 ABG pO2 ABG HCO3 ABG O2 Saturation ABG Base Excess ABG Hemoglobin ABG Oxyhemoglobin ABG Sodium ABG Potassium ABG Chloride ABG Glucose Oxyhemoglobin Carboxyhemoglobin Sodium Potassium Chloride 96.8 L Carbon Dioxide 37 H BUN 31 H Creatinine 0.6 L Glucose 213 H POC Glucose 164 H 208 H Lactic Acid Calcium Magnesium Ferritin Total Bilirubin Direct Bilirubin AST ALT Alkaline Phosphatase Lactate Dehydrogenase C-Reactive Protein Total Protein Albumin Triglycerides Lipase Arterial Blood Glucose Arterial Blood Ionized Calcium Urine WBC (Auto) Coronavirus (PCR) SARS-CoV-2 IgG Ab Crossmatch 05/31/20 05/31/20 06/01/20 17:37 23:47 03:48 WBC RBC Hgb Hct MCV MCH MCHC RDW Lymph % (Auto) [place]ws % (Auto) Lymph # (Auto) [place]ws # (Auto) Baso # (Auto) Seg Neutrophils % Seg Neuts % (Manual) Lymphocytes % (Manual) Nucleated RBC % Seg Neutrophils # Seg Neutrophils # Man Lymphocytes # (Manual) Monocytes # (Manual) Eosinophils # (Manual) PT INR APTT D-Dimer Heparin Anti-Xa Level ABG pH POC ABG pCO2 59.7 H POC ABG pO2 73.9 L ABG pO2 ABG HCO3 ABG O2 Saturation ABG Base Excess ABG Hemoglobin ABG Oxyhemoglobin ABG Sodium ABG Potassium ABG Chloride 95.0 L ABG Glucose 256 H Oxyhemoglobin Carboxyhemoglobin Sodium Potassium Chloride Carbon Dioxide BUN Creatinine Glucose POC Glucose 168 H 178 H Lactic Acid Calcium Magnesium Ferritin Total Bilirubin Direct Bilirubin AST ALT Alkaline Phosphatase Lactate Dehydrogenase C-Reactive Protein Total Protein Albumin Triglycerides Lipase Arterial Blood Glucose 256 H Arterial Blood Ionized Calcium Urine WBC (Auto) Coronavirus (PCR) SARS-CoV-2 IgG Ab Crossmatch 06/01/20 06/01/20 06/01/20 05:01 07:47 07:47 WBC 14.4 H RBC 3.46 L Hgb 11.1 L Hct 34.3 L MCV 99 H MCH MCHC RDW Lymph % (Auto) Mathews % (Auto) Lymph # (Auto) Mathews # (Auto) Baso # (Auto) Seg Neutrophils % Seg Neuts % (Manual) 86.0 H Lymphocytes % (Manual) 9.0 L Nucleated RBC % Seg Neutrophils # Seg Neutrophils # Man 12.4 H Lymphocytes # (Manual) Monocytes # (Manual) Eosinophils # (Manual) PT INR APTT D-Dimer Heparin Anti-Xa Level ABG pH POC ABG pCO2 POC ABG pO2 ABG pO2 ABG HCO3 ABG O2 Saturation ABG Base Excess ABG Hemoglobin ABG Oxyhemoglobin ABG Sodium ABG Potassium ABG Chloride ABG Glucose Oxyhemoglobin Carboxyhemoglobin Sodium Potassium Chloride Carbon Dioxide BUN Creatinine Glucose POC Glucose 197 H Lactic Acid Calcium Magnesium Ferritin Total Bilirubin Direct Bilirubin AST ALT Alkaline Phosphatase Lactate Dehydrogenase C-Reactive Protein Total Protein Albumin Triglycerides 244 H Lipase Arterial Blood Glucose Arterial Blood Ionized Calcium Urine WBC (Auto) Coronavirus (PCR) SARS-CoV-2 IgG Ab Crossmatch 06/01/20 06/01/20 06/01/20 07:47 11:46 18:15 WBC RBC Hgb Hct MCV MCH MCHC RDW Lymph % (Auto) [place]ws % (Auto) Lymph # (Auto) [place]ws # (Auto) Baso # (Auto) Seg Neutrophils % Seg Neuts % (Manual) Lymphocytes % (Manual) Nucleated RBC % Seg Neutrophils # Seg Neutrophils # Man Lymphocytes # (Manual) Monocytes # (Manual) Eosinophils # (Manual) PT INR APTT D-Dimer Heparin Anti-Xa Level ABG pH POC ABG pCO2 POC ABG pO2 ABG pO2 ABG HCO3 ABG O2 Saturation ABG Base Excess ABG Hemoglobin ABG Oxyhemoglobin ABG Sodium ABG Potassium ABG Chloride ABG Glucose Oxyhemoglobin Carboxyhemoglobin Sodium Potassium Chloride 95.4 L Carbon Dioxide 35 H BUN 30 H Creatinine 0.5 L Glucose 214 H POC Glucose 181 H 221 H Lactic Acid Calcium Magnesium Ferritin Total Bilirubin Direct Bilirubin AST 54 H ALT 235 H Alkaline Phosphatase Lactate Dehydrogenase C-Reactive Protein Total Protein Albumin 2.9 L Triglycerides Lipase Arterial Blood Glucose Arterial Blood Ionized Calcium Urine WBC (Auto) Coronavirus (PCR) SARS-CoV-2 IgG Ab Crossmatch 06/01/20 06/02/20 06/02/20 23:12 04:00 05:31 WBC RBC Hgb Hct MCV MCH MCHC RDW Lymph % (Auto) [place]ws % (Auto) Lymph # (Auto) [place]ws # (Auto) Baso # (Auto) Seg Neutrophils % Seg Neuts % (Manual) Lymphocytes % (Manual) Nucleated RBC % Seg Neutrophils # Seg Neutrophils # Man Lymphocytes # (Manual) Monocytes # (Manual) Eosinophils # (Manual) PT INR APTT D-Dimer Heparin Anti-Xa Level ABG pH 7.465 H POC ABG pCO2 POC ABG pO2 ABG pO2 203.4 H ABG HCO3 41.2 H ABG O2 Saturation 99.3 H ABG Base Excess 15.1 H ABG Hemoglobin 11.5 L ABG Oxyhemoglobin ABG Sodium ABG Potassium ABG Chloride ABG Glucose Oxyhemoglobin Carboxyhemoglobin Sodium Potassium Chloride Carbon Dioxide BUN Creatinine Glucose POC Glucose 197 H 184 H Lactic Acid Calcium Magnesium Ferritin Total Bilirubin Direct Bilirubin AST ALT Alkaline Phosphatase Lactate Dehydrogenase C-Reactive Protein Total Protein Albumin Triglycerides Lipase Arterial Blood Glucose Arterial Blood Ionized Calcium Urine WBC (Auto) Coronavirus (PCR) SARS-CoV-2 IgG Ab Crossmatch 06/02/20 06/02/20 06/02/20 11:49 18:06 23:00 WBC RBC Hgb Hct MCV MCH MCHC RDW Lymph % (Auto) [place]ws % (Auto) Lymph # (Auto) [place]ws # (Auto) Baso # (Auto) Seg Neutrophils % Seg Neuts % (Manual) Lymphocytes % (Manual) Nucleated RBC % Seg Neutrophils # Seg Neutrophils # Man Lymphocytes # (Manual) Monocytes # (Manual) Eosinophils # (Manual) PT INR APTT D-Dimer Heparin Anti-Xa Level ABG pH POC ABG pCO2 POC ABG pO2 ABG pO2 ABG HCO3 ABG O2 Saturation ABG Base Excess ABG Hemoglobin ABG Oxyhemoglobin ABG Sodium ABG Potassium ABG Chloride ABG Glucose Oxyhemoglobin Carboxyhemoglobin Sodium Potassium Chloride Carbon Dioxide BUN Creatinine Glucose POC Glucose 195 H 177 H 228 H Lactic Acid Calcium Magnesium Ferritin Total Bilirubin Direct Bilirubin AST ALT Alkaline Phosphatase Lactate Dehydrogenase C-Reactive Protein Total Protein Albumin Triglycerides Lipase Arterial Blood Glucose Arterial Blood Ionized Calcium Urine WBC (Auto) Coronavirus (PCR) SARS-CoV-2 IgG Ab Crossmatch 06/03/20 06/03/20 06/03/20 03:58 05:19 12:21 WBC RBC Hgb Hct MCV MCH MCHC RDW Lymph % (Auto) [place]ws % (Auto) Lymph # (Auto) [place]ws # (Auto) Baso # (Auto) Seg Neutrophils % Seg Neuts % (Manual) Lymphocytes % (Manual) Nucleated RBC % Seg Neutrophils # Seg Neutrophils # Man Lymphocytes # (Manual) Monocytes # (Manual) Eosinophils # (Manual) PT INR APTT D-Dimer Heparin Anti-Xa Level ABG pH POC ABG pCO2 POC ABG pO2 ABG pO2 171.0 H ABG HCO3 42.8 H ABG O2 Saturation ABG Base Excess 15.6 H ABG Hemoglobin 12.3 L ABG Oxyhemoglobin ABG Sodium ABG Potassium ABG Chloride ABG Glucose Oxyhemoglobin Carboxyhemoglobin Sodium Potassium Chloride Carbon Dioxide BUN Creatinine Glucose POC Glucose 122 H 207 H Lactic Acid Calcium Magnesium Ferritin Total Bilirubin Direct Bilirubin AST ALT Alkaline Phosphatase Lactate Dehydrogenase C-Reactive Protein Total Protein Albumin Triglycerides Lipase Arterial Blood Glucose Arterial Blood Ionized Calcium Urine WBC (Auto) Coronavirus (PCR) SARS-CoV-2 IgG Ab Crossmatch 06/03/20 06/03/20 06/04/20 17:27 23:50 03:55 WBC RBC Hgb Hct MCV MCH MCHC RDW Lymph % (Auto) [place]ws % (Auto) Lymph # (Auto) [place]ws # (Auto) Baso # (Auto) Seg Neutrophils % Seg Neuts % (Manual) Lymphocytes % (Manual) Nucleated RBC % Seg Neutrophils # Seg Neutrophils # Man Lymphocytes # (Manual) Monocytes # (Manual) Eosinophils # (Manual) PT INR APTT D-Dimer Heparin Anti-Xa Level ABG pH POC ABG pCO2 POC ABG pO2 ABG pO2 117.2 H ABG HCO3 42.4 H ABG O2 Saturation ABG Base Excess 15.3 H ABG Hemoglobin 10.5 L ABG Oxyhemoglobin ABG Sodium ABG Potassium ABG Chloride ABG Glucose Oxyhemoglobin Carboxyhemoglobin Sodium Potassium Chloride Carbon Dioxide BUN Creatinine Glucose POC Glucose 157 H 214 H Lactic Acid Calcium Magnesium Ferritin Total Bilirubin Direct Bilirubin AST ALT Alkaline Phosphatase Lactate Dehydrogenase C-Reactive Protein Total Protein Albumin Triglycerides Lipase Arterial Blood Glucose Arterial Blood Ionized Calcium Urine WBC (Auto) Coronavirus (PCR) SARS-CoV-2 IgG Ab Crossmatch 06/04/20 06/04/20 06/04/20 05:49 11:41 17:30 WBC RBC Hgb Hct MCV MCH MCHC RDW Lymph % (Auto) [place]ws % (Auto) Lymph # (Auto) [place]ws # (Auto) Baso # (Auto) Seg Neutrophils % Seg Neuts % (Manual) Lymphocytes % (Manual) Nucleated RBC % Seg Neutrophils # Seg Neutrophils # Man Lymphocytes # (Manual) Monocytes # (Manual) Eosinophils # (Manual) PT INR APTT D-Dimer Heparin Anti-Xa Level ABG pH POC ABG pCO2 POC ABG pO2 ABG pO2 ABG HCO3 ABG O2 Saturation ABG Base Excess ABG Hemoglobin ABG Oxyhemoglobin ABG Sodium ABG Potassium ABG Chloride ABG Glucose Oxyhemoglobin Carboxyhemoglobin Sodium Potassium Chloride Carbon Dioxide BUN Creatinine Glucose POC Glucose 149 H 233 H 156 H Lactic Acid Calcium Magnesium Ferritin Total Bilirubin Direct Bilirubin AST ALT Alkaline Phosphatase Lactate Dehydrogenase C-Reactive Protein Total Protein Albumin Triglycerides Lipase Arterial Blood Glucose Arterial Blood Ionized Calcium Urine WBC (Auto) Coronavirus (PCR) SARS-CoV-2 IgG Ab Crossmatch 06/04/20 06/04/20 06/04/20 19:01 20:53 23:41 WBC RBC 3.18 L Hgb 10.8 L Hct 31.8 L MCV 100 H MCH 34 H MCHC RDW Lymph % (Auto) [place]ws % (Auto) Lymph # (Auto) Mathews # (Auto) Baso # (Auto) Seg Neutrophils % Seg Neuts % (Manual) 86.0 H Lymphocytes % (Manual) 10.0 L Nucleated RBC % 1.0 H Seg Neutrophils # Seg Neutrophils # Man 8.5 H Lymphocytes # (Manual) 1.0 L Monocytes # (Manual) Eosinophils # (Manual) PT INR APTT D-Dimer Heparin Anti-Xa Level ABG pH POC ABG pCO2 POC ABG pO2 ABG pO2 ABG HCO3 ABG O2 Saturation ABG Base Excess ABG Hemoglobin ABG Oxyhemoglobin ABG Sodium ABG Potassium ABG Chloride ABG Glucose Oxyhemoglobin Carboxyhemoglobin Sodium Potassium 3.4 L D Chloride 96.5 L Carbon Dioxide 41 H* BUN 27 H Creatinine 0.5 L Glucose 173 H POC Glucose 217 H Lactic Acid Calcium Magnesium Ferritin Total Bilirubin Direct Bilirubin AST ALT Alkaline Phosphatase Lactate Dehydrogenase C-Reactive Protein Total Protein Albumin Triglycerides Lipase Arterial Blood Glucose Arterial Blood Ionized Calcium Urine WBC (Auto) Coronavirus (PCR) SARS-CoV-2 IgG Ab Crossmatch 06/05/20 06/05/20 06/05/20 06:05 11:54 12:35 WBC RBC Hgb Hct MCV MCH MCHC RDW Lymph % (Auto) [place]ws % (Auto) Lymph # (Auto) Mathews # (Auto) Baso # (Auto) Seg Neutrophils % Seg Neuts % (Manual) Lymphocytes % (Manual) Nucleated RBC % Seg Neutrophils # Seg Neutrophils # Man Lymphocytes # (Manual) Monocytes # (Manual) Eosinophils # (Manual) PT INR APTT D-Dimer Heparin Anti-Xa Level ABG pH POC ABG pCO2 POC ABG pO2 ABG pO2 127.9 H ABG HCO3 41.1 H ABG O2 Saturation ABG Base Excess 13.0 H ABG Hemoglobin 13.4 L ABG Oxyhemoglobin ABG Sodium ABG Potassium ABG Chloride ABG Glucose Oxyhemoglobin Carboxyhemoglobin Sodium Potassium Chloride Carbon Dioxide BUN Creatinine Glucose POC Glucose 137 H 211 H Lactic Acid Calcium Magnesium Ferritin Total Bilirubin Direct Bilirubin AST ALT Alkaline Phosphatase Lactate Dehydrogenase C-Reactive Protein Total Protein Albumin Triglycerides Lipase Arterial Blood Glucose Arterial Blood Ionized Calcium Urine WBC (Auto) Coronavirus (PCR) SARS-CoV-2 IgG Ab Crossmatch 06/05/20 06/05/20 06/06/20 17:03 23:49 04:42 WBC RBC Hgb Hct MCV MCH MCHC RDW Lymph % (Auto) [place]ws % (Auto) Lymph # (Auto) [place]ws # (Auto) Baso # (Auto) Seg Neutrophils % Seg Neuts % (Manual) Lymphocytes % (Manual) Nucleated RBC % Seg Neutrophils # Seg Neutrophils # Man Lymphocytes # (Manual) Monocytes # (Manual) Eosinophils # (Manual) PT INR APTT D-Dimer Heparin Anti-Xa Level ABG pH POC ABG pCO2 56.1 H POC ABG pO2 52.5 L ABG pO2 ABG HCO3 ABG O2 Saturation ABG Base Excess ABG Hemoglobin 11.7 L ABG Oxyhemoglobin ABG Sodium ABG Potassium 3.3 L ABG Chloride 95.0 L ABG Glucose 156 H Oxyhemoglobin Carboxyhemoglobin Sodium Potassium Chloride Carbon Dioxide BUN Creatinine Glucose POC Glucose 159 H 194 H Lactic Acid Calcium Magnesium Ferritin Total Bilirubin Direct Bilirubin AST ALT Alkaline Phosphatase Lactate Dehydrogenase C-Reactive Protein Total Protein Albumin Triglycerides Lipase Arterial Blood Glucose 156 H Arterial Blood Ionized Calcium Urine WBC (Auto) Coronavirus (PCR) SARS-CoV-2 IgG Ab Crossmatch 06/06/20 06/06/20 06/06/20 05:57 12:06 17:38 WBC RBC Hgb Hct MCV MCH MCHC RDW Lymph % (Auto) [place]ws % (Auto) Lymph # (Auto) [place]ws # (Auto) Baso # (Auto) Seg Neutrophils % Seg Neuts % (Manual) Lymphocytes % (Manual) Nucleated RBC % Seg Neutrophils # Seg Neutrophils # Man Lymphocytes # (Manual) Monocytes # (Manual) Eosinophils # (Manual) PT INR APTT D-Dimer Heparin Anti-Xa Level ABG pH POC ABG pCO2 POC ABG pO2 ABG pO2 ABG HCO3 ABG O2 Saturation ABG Base Excess ABG Hemoglobin ABG Oxyhemoglobin ABG Sodium ABG Potassium ABG Chloride ABG Glucose Oxyhemoglobin Carboxyhemoglobin Sodium Potassium Chloride Carbon Dioxide BUN Creatinine Glucose POC Glucose 144 H 230 H 162 H Lactic Acid Calcium Magnesium Ferritin Total Bilirubin Direct Bilirubin AST ALT Alkaline Phosphatase Lactate Dehydrogenase C-Reactive Protein Total Protein Albumin Triglycerides Lipase Arterial Blood Glucose Arterial Blood Ionized Calcium Urine WBC (Auto) Coronavirus (PCR) SARS-CoV-2 IgG Ab Crossmatch 06/06/20 06/07/20 06/07/20 23:50 04:34 06:03 WBC RBC Hgb Hct MCV MCH MCHC RDW Lymph % (Auto) [place] % (Auto) Lymph # (Auto) [place]ws # (Auto) Baso # (Auto) Seg Neutrophils % Seg Neuts % (Manual) Lymphocytes % (Manual) Nucleated RBC % Seg Neutrophils # Seg Neutrophils # Man Lymphocytes # (Manual) Monocytes # (Manual) Eosinophils # (Manual) PT INR APTT D-Dimer Heparin Anti-Xa Level ABG pH 7.511 H POC ABG pCO2 53.5 H POC ABG pO2 114.5 H ABG pO2 ABG HCO3 ABG O2 Saturation ABG Base Excess ABG Hemoglobin 9.4 L ABG Oxyhemoglobin ABG Sodium 134.5 L ABG Potassium ABG Chloride 94.0 L ABG Glucose 186 H Oxyhemoglobin Carboxyhemoglobin Sodium Potassium Chloride Carbon Dioxide BUN Creatinine Glucose POC Glucose 181 H 155 H Lactic Acid Calcium Magnesium Ferritin Total Bilirubin Direct Bilirubin AST ALT Alkaline Phosphatase Lactate Dehydrogenase C-Reactive Protein Total Protein Albumin Triglycerides Lipase Arterial Blood Glucose 186 H Arterial Blood Ionized Calcium 4.5 L Urine WBC (Auto) Coronavirus (PCR) SARS-CoV-2 IgG Ab Crossmatch 06/07/20 06/07/20 06/07/20 13:41 14:58 14:58 WBC RBC 2.72 L Hgb 9.3 L Hct 27.2 L MCV 100 H MCH 34 H MCHC RDW Lymph % (Auto) Mathews % (Auto) Lymph # (Auto) Mathews # (Auto) Baso # (Auto) Seg Neutrophils % Seg Neuts % (Manual) Lymphocytes % (Manual) Nucleated RBC % Seg Neutrophils # Seg Neutrophils # Man Lymphocytes # (Manual) Monocytes # (Manual) Eosinophils # (Manual) PT INR APTT D-Dimer Heparin Anti-Xa Level ABG pH POC ABG pCO2 POC ABG pO2 ABG pO2 ABG HCO3 ABG O2 Saturation ABG Base Excess ABG Hemoglobin ABG Oxyhemoglobin ABG Sodium ABG Potassium ABG Chloride ABG Glucose Oxyhemoglobin Carboxyhemoglobin Sodium Potassium Chloride 93.5 L Carbon Dioxide 39 H BUN 22 H Creatinine 0.4 L Glucose 188 H POC Glucose 201 H Lactic Acid Calcium Magnesium Ferritin Total Bilirubin Direct Bilirubin AST 61 H ALT 273 H Alkaline Phosphatase Lactate Dehydrogenase C-Reactive Protein Total Protein 5.9 L Albumin 2.7 L Triglycerides Lipase Arterial Blood Glucose Arterial Blood Ionized Calcium Urine WBC (Auto) Coronavirus (PCR) SARS-CoV-2 IgG Ab Crossmatch 06/07/20 06/08/20 06/08/20 23:18 05:31 12:07 WBC RBC Hgb Hct MCV MCH MCHC RDW Lymph % (Auto) Mathews % (Auto) Lymph # (Auto) Mathews # (Auto) Baso # (Auto) Seg Neutrophils % Seg Neuts % (Manual) Lymphocytes % (Manual) Nucleated RBC % Seg Neutrophils # Seg Neutrophils # Man Lymphocytes # (Manual) Monocytes # (Manual) Eosinophils # (Manual) PT INR APTT D-Dimer Heparin Anti-Xa Level ABG pH POC ABG pCO2 POC ABG pO2 ABG pO2 ABG HCO3 ABG O2 Saturation ABG Base Excess ABG Hemoglobin ABG Oxyhemoglobin ABG Sodium ABG Potassium ABG Chloride ABG Glucose Oxyhemoglobin Carboxyhemoglobin Sodium Potassium Chloride Carbon Dioxide BUN Creatinine Glucose POC Glucose 214 H 129 H 179 H Lactic Acid Calcium Magnesium Ferritin Total Bilirubin Direct Bilirubin AST ALT Alkaline Phosphatase Lactate Dehydrogenase C-Reactive Protein Total Protein Albumin Triglycerides Lipase Arterial Blood Glucose Arterial Blood Ionized Calcium Urine WBC (Auto) Coronavirus (PCR) SARS-CoV-2 IgG Ab Crossmatch 06/08/20 06/08/20 06/09/20 18:18 23:35 05:42 WBC RBC Hgb Hct MCV MCH MCHC RDW Lymph % (Auto) Mathews % (Auto) Lymph # (Auto) Mathews # (Auto) Baso # (Auto) Seg Neutrophils % Seg Neuts % (Manual) Lymphocytes % (Manual) Nucleated RBC % Seg Neutrophils # Seg Neutrophils # Man Lymphocytes # (Manual) Monocytes # (Manual) Eosinophils # (Manual) PT INR APTT D-Dimer Heparin Anti-Xa Level ABG pH POC ABG pCO2 POC ABG pO2 ABG pO2 ABG HCO3 ABG O2 Saturation ABG Base Excess ABG Hemoglobin ABG Oxyhemoglobin ABG Sodium ABG Potassium ABG Chloride ABG Glucose Oxyhemoglobin Carboxyhemoglobin Sodium Potassium Chloride Carbon Dioxide BUN Creatinine Glucose POC Glucose 172 H 177 H 137 H Lactic Acid Calcium Magnesium Ferritin Total Bilirubin Direct Bilirubin AST ALT Alkaline Phosphatase Lactate Dehydrogenase C-Reactive Protein Total Protein Albumin Triglycerides Lipase Arterial Blood Glucose Arterial Blood Ionized Calcium Urine WBC (Auto) Coronavirus (PCR) SARS-CoV-2 IgG Ab Crossmatch 06/09/20 06/09/20 06/09/20 06:20 07:55 07:55 WBC 12.4 H RBC 3.26 L Hgb 11.1 L Hct 33.4 L D MCV 102 H MCH 34 H MCHC RDW Lymph % (Auto) Mathews % (Auto) Lymph # (Auto) Mathews # (Auto) Baso # (Auto) Seg Neutrophils % Seg Neuts % (Manual) Lymphocytes % (Manual) Nucleated RBC % Seg Neutrophils # Seg Neutrophils # Man Lymphocytes # (Manual) Monocytes # (Manual) Eosinophils # (Manual) PT INR APTT D-Dimer Heparin Anti-Xa Level ABG pH 7.466 H POC ABG pCO2 50.7 H POC ABG pO2 53.0 L ABG pO2 ABG HCO3 ABG O2 Saturation ABG Base Excess ABG Hemoglobin ABG Oxyhemoglobin ABG Sodium ABG Potassium 2.9 L ABG Chloride 93.0 L ABG Glucose 138 H Oxyhemoglobin Carboxyhemoglobin Sodium Potassium 3.0 L Chloride 92.3 L Carbon Dioxide 37 H BUN 21 H Creatinine 0.6 L Glucose 120 H POC Glucose Lactic Acid Calcium Magnesium Ferritin Total Bilirubin Direct Bilirubin AST ALT Alkaline Phosphatase Lactate Dehydrogenase C-Reactive Protein Total Protein Albumin Triglycerides Lipase Arterial Blood Glucose 138 H Arterial Blood Ionized Calcium 4.5 L Urine WBC (Auto) Coronavirus (PCR) SARS-CoV-2 IgG Ab Crossmatch 06/09/20 06/09/20 06/10/20 11:22 18:32 04:46 WBC RBC Hgb Hct MCV MCH MCHC RDW Lymph % (Auto) Mathews % (Auto) Lymph # (Auto) Mathews # (Auto) Baso # (Auto) Seg Neutrophils % Seg Neuts % (Manual) Lymphocytes % (Manual) Nucleated RBC % Seg Neutrophils # Seg Neutrophils # Man Lymphocytes # (Manual) Monocytes # (Manual) Eosinophils # (Manual) PT INR APTT D-Dimer Heparin Anti-Xa Level ABG pH 7.501 H POC ABG pCO2 POC ABG pO2 126.5 H ABG pO2 ABG HCO3 ABG O2 Saturation ABG Base Excess ABG Hemoglobin 10.3 L ABG Oxyhemoglobin ABG Sodium ABG Potassium ABG Chloride ABG Glucose 220 H Oxyhemoglobin Carboxyhemoglobin Sodium Potassium Chloride Carbon Dioxide BUN Creatinine Glucose POC Glucose 117 H 121 H Lactic Acid Calcium Magnesium Ferritin Total Bilirubin Direct Bilirubin AST ALT Alkaline Phosphatase Lactate Dehydrogenase C-Reactive Protein Total Protein Albumin Triglycerides Lipase Arterial Blood Glucose 220 H Arterial Blood Ionized Calcium Urine WBC (Auto) Coronavirus (PCR) SARS-CoV-2 IgG Ab Crossmatch 06/10/20 06/10/20 06/10/20 05:30 09:38 12:03 WBC RBC Hgb Hct MCV MCH MCHC RDW Lymph % (Auto) Mathews % (Auto) Lymph # (Auto) Mathews # (Auto) Baso # (Auto) Seg Neutrophils % Seg Neuts % (Manual) Lymphocytes % (Manual) Nucleated RBC % Seg Neutrophils # Seg Neutrophils # Man Lymphocytes # (Manual) Monocytes # (Manual) Eosinophils # (Manual) PT INR APTT D-Dimer Heparin Anti-Xa Level ABG pH POC ABG pCO2 POC ABG pO2 ABG pO2 ABG HCO3 ABG O2 Saturation ABG Base Excess ABG Hemoglobin ABG Oxyhemoglobin ABG Sodium ABG Potassium ABG Chloride ABG Glucose Oxyhemoglobin Carboxyhemoglobin Sodium Potassium Chloride Carbon Dioxide BUN Creatinine Glucose POC Glucose 181 H 204 H Lactic Acid Calcium Magnesium Ferritin Total Bilirubin Direct Bilirubin AST ALT Alkaline Phosphatase Lactate Dehydrogenase C-Reactive Protein Total Protein Albumin Triglycerides 738 H Lipase Arterial Blood Glucose Arterial Blood Ionized Calcium Urine WBC (Auto) Coronavirus (PCR) SARS-CoV-2 IgG Ab Crossmatch 06/10/20 06/11/20 06/11/20 17:17 00:04 04:38 WBC RBC Hgb Hct MCV MCH MCHC RDW Lymph % (Auto) Mathews % (Auto) Lymph # (Auto) Mathews # (Auto) Baso # (Auto) Seg Neutrophils % Seg Neuts % (Manual) Lymphocytes % (Manual) Nucleated RBC % Seg Neutrophils # Seg Neutrophils # Man Lymphocytes # (Manual) Monocytes # (Manual) Eosinophils # (Manual) PT INR APTT D-Dimer Heparin Anti-Xa Level ABG pH 7.479 H POC ABG pCO2 POC ABG pO2 76.7 L ABG pO2 ABG HCO3 ABG O2 Saturation ABG Base Excess ABG Hemoglobin 9.8 L ABG Oxyhemoglobin ABG Sodium 135.8 L ABG Potassium ABG Chloride ABG Glucose 238 H Oxyhemoglobin Carboxyhemoglobin Sodium Potassium Chloride Carbon Dioxide BUN Creatinine Glucose POC Glucose 156 H 178 H Lactic Acid Calcium Magnesium Ferritin Total Bilirubin Direct Bilirubin AST ALT Alkaline Phosphatase Lactate Dehydrogenase C-Reactive Protein Total Protein Albumin Triglycerides Lipase Arterial Blood Glucose 238 H Arterial Blood Ionized Calcium Urine WBC (Auto) Coronavirus (PCR) SARS-CoV-2 IgG Ab Crossmatch 06/11/20 06/11/20 06/11/20 05:21 06:52 11:50 WBC RBC Hgb Hct MCV MCH MCHC RDW Lymph % (Auto) Mathews % (Auto) Lymph # (Auto) Mathews # (Auto) Baso # (Auto) Seg Neutrophils % Seg Neuts % (Manual) Lymphocytes % (Manual) Nucleated RBC % Seg Neutrophils # Seg Neutrophils # Man Lymphocytes # (Manual) Monocytes # (Manual) Eosinophils # (Manual) PT INR APTT D-Dimer Heparin Anti-Xa Level ABG pH POC ABG pCO2 POC ABG pO2 ABG pO2 ABG HCO3 ABG O2 Saturation ABG Base Excess ABG Hemoglobin ABG Oxyhemoglobin ABG Sodium ABG Potassium ABG Chloride ABG Glucose Oxyhemoglobin Carboxyhemoglobin Sodium Potassium Chloride Carbon Dioxide BUN Creatinine Glucose POC Glucose 215 H 187 H Lactic Acid Calcium Magnesium Ferritin Total Bilirubin Direct Bilirubin AST ALT Alkaline Phosphatase Lactate Dehydrogenase C-Reactive Protein Total Protein Albumin Triglycerides 331 H Lipase Arterial Blood Glucose Arterial Blood Ionized Calcium Urine WBC (Auto) Coronavirus (PCR) SARS-CoV-2 IgG Ab Crossmatch 06/11/20 06/11/20 06/12/20 17:49 23:35 04:52 WBC RBC Hgb Hct MCV MCH MCHC RDW Lymph % (Auto) Mathews % (Auto) Lymph # (Auto) Mathews # (Auto) Baso # (Auto) Seg Neutrophils % Seg Neuts % (Manual) Lymphocytes % (Manual) Nucleated RBC % Seg Neutrophils # Seg Neutrophils # Man Lymphocytes # (Manual) Monocytes # (Manual) Eosinophils # (Manual) PT INR APTT D-Dimer Heparin Anti-Xa Level ABG pH 7.486 H POC ABG pCO2 POC ABG pO2 ABG pO2 ABG HCO3 ABG O2 Saturation ABG Base Excess ABG Hemoglobin 9.4 L ABG Oxyhemoglobin ABG Sodium ABG Potassium 3.2 L ABG Chloride ABG Glucose 209 H Oxyhemoglobin Carboxyhemoglobin Sodium Potassium Chloride Carbon Dioxide BUN Creatinine Glucose POC Glucose 211 H 200 H Lactic Acid Calcium Magnesium Ferritin Total Bilirubin Direct Bilirubin AST ALT Alkaline Phosphatase Lactate Dehydrogenase C-Reactive Protein Total Protein Albumin Triglycerides Lipase Arterial Blood Glucose 209 H Arterial Blood Ionized Calcium Urine WBC (Auto) Coronavirus (PCR) SARS-CoV-2 IgG Ab Crossmatch 06/12/20 06/12/20 06/12/20 05:13 11:47 18:33 WBC RBC Hgb Hct MCV MCH MCHC RDW Lymph % (Auto) Mathews % (Auto) Lymph # (Auto) Mathews # (Auto) Baso # (Auto) Seg Neutrophils % Seg Neuts % (Manual) Lymphocytes % (Manual) Nucleated RBC % Seg Neutrophils # Seg Neutrophils # Man Lymphocytes # (Manual) Monocytes # (Manual) Eosinophils # (Manual) PT INR APTT D-Dimer Heparin Anti-Xa Level ABG pH POC ABG pCO2 POC ABG pO2 ABG pO2 ABG HCO3 ABG O2 Saturation ABG Base Excess ABG Hemoglobin ABG Oxyhemoglobin ABG Sodium ABG Potassium ABG Chloride ABG Glucose Oxyhemoglobin Carboxyhemoglobin Sodium Potassium Chloride Carbon Dioxide BUN Creatinine Glucose POC Glucose 174 H 214 H 194 H Lactic Acid Calcium Magnesium Ferritin Total Bilirubin Direct Bilirubin AST ALT Alkaline Phosphatase Lactate Dehydrogenase C-Reactive Protein Total Protein Albumin Triglycerides Lipase Arterial Blood Glucose Arterial Blood Ionized Calcium Urine WBC (Auto) Coronavirus (PCR) SARS-CoV-2 IgG Ab Crossmatch 06/12/20 06/13/20 06/13/20 23:49 05:41 12:30 WBC RBC Hgb Hct MCV MCH MCHC RDW Lymph % (Auto) Mathews % (Auto) Lymph # (Auto) Mathews # (Auto) Baso # (Auto) Seg Neutrophils % Seg Neuts % (Manual) Lymphocytes % (Manual) Nucleated RBC % Seg Neutrophils # Seg Neutrophils # Man Lymphocytes # (Manual) Monocytes # (Manual) Eosinophils # (Manual) PT INR APTT D-Dimer Heparin Anti-Xa Level ABG pH POC ABG pCO2 POC ABG pO2 ABG pO2 ABG HCO3 ABG O2 Saturation ABG Base Excess ABG Hemoglobin ABG Oxyhemoglobin ABG Sodium ABG Potassium ABG Chloride ABG Glucose Oxyhemoglobin Carboxyhemoglobin Sodium Potassium Chloride Carbon Dioxide BUN Creatinine Glucose POC Glucose 160 H 150 H 181 H Lactic Acid Calcium Magnesium Ferritin Total Bilirubin Direct Bilirubin AST ALT Alkaline Phosphatase Lactate Dehydrogenase C-Reactive Protein Total Protein Albumin Triglycerides Lipase Arterial Blood Glucose Arterial Blood Ionized Calcium Urine WBC (Auto) Coronavirus (PCR) SARS-CoV-2 IgG Ab Crossmatch 06/13/20 06/13/20 06/13/20 14:14 17:48 23:27 WBC 12.8 H RBC 2.33 L Hgb 8.0 L Hct 23.3 L MCV 100 H MCH 34 H MCHC RDW 15.7 H Lymph % (Auto) Mathews % (Auto) Lymph # (Auto) Mathews # (Auto) Baso # (Auto) Seg Neutrophils % Seg Neuts % (Manual) 85.0 H Lymphocytes % (Manual) 10.0 L Nucleated RBC % Seg Neutrophils # Seg Neutrophils # Man 10.9 H Lymphocytes # (Manual) Monocytes # (Manual) Eosinophils # (Manual) PT INR APTT D-Dimer Heparin Anti-Xa Level ABG pH POC ABG pCO2 POC ABG pO2 ABG pO2 ABG HCO3 ABG O2 Saturation ABG Base Excess ABG Hemoglobin ABG Oxyhemoglobin ABG Sodium ABG Potassium ABG Chloride ABG Glucose Oxyhemoglobin Carboxyhemoglobin Sodium Potassium Chloride Carbon Dioxide BUN Creatinine Glucose POC Glucose 173 H 154 H Lactic Acid Calcium Magnesium Ferritin Total Bilirubin Direct Bilirubin AST ALT Alkaline Phosphatase Lactate Dehydrogenase C-Reactive Protein Total Protein Albumin Triglycerides Lipase Arterial Blood Glucose Arterial Blood Ionized Calcium Urine WBC (Auto) Coronavirus (PCR) SARS-CoV-2 IgG Ab Crossmatch 06/14/20 06/14/20 06/14/20 03:58 05:21 07:15 WBC 26.2 H RBC 2.97 L Hgb 9.7 L Hct 29.9 L D MCV 101 H MCH 33 H MCHC RDW 15.3 H Lymph % (Auto) Mathews % (Auto) Lymph # (Auto) Mathews # (Auto) Baso # (Auto) Seg Neutrophils % Seg Neuts % (Manual) 79.0 H Lymphocytes % (Manual) 5.0 L Nucleated RBC % 3.0 H Seg Neutrophils # Seg Neutrophils # Man 20.7 H Lymphocytes # (Manual) Monocytes # (Manual) 1.3 H Eosinophils # (Manual) PT INR APTT D-Dimer Heparin Anti-Xa Level ABG pH POC ABG pCO2 51.5 H POC ABG pO2 70.0 L ABG pO2 ABG HCO3 ABG O2 Saturation ABG Base Excess ABG Hemoglobin 10.1 L ABG Oxyhemoglobin ABG Sodium 131.5 L ABG Potassium 3.1 L ABG Chloride 93.0 L ABG Glucose 188 H Oxyhemoglobin Carboxyhemoglobin Sodium Potassium Chloride Carbon Dioxide BUN Creatinine Glucose POC Glucose 147 H Lactic Acid Calcium Magnesium Ferritin Total Bilirubin Direct Bilirubin AST ALT Alkaline Phosphatase Lactate Dehydrogenase C-Reactive Protein Total Protein Albumin Triglycerides Lipase Arterial Blood Glucose 188 H Arterial Blood Ionized Calcium Urine WBC (Auto) Coronavirus (PCR) SARS-CoV-2 IgG Ab Crossmatch 06/14/20 06/14/20 06/14/20 07:15 11:30 11:50 WBC RBC Hgb Hct MCV MCH MCHC RDW Lymph % (Auto) Mathews % (Auto) Lymph # (Auto) Mathews # (Auto) Baso # (Auto) Seg Neutrophils % Seg Neuts % (Manual) Lymphocytes % (Manual) Nucleated RBC % Seg Neutrophils # Seg Neutrophils # Man Lymphocytes # (Manual) Monocytes # (Manual) Eosinophils # (Manual) PT INR APTT D-Dimer Heparin Anti-Xa Level ABG pH POC ABG pCO2 POC ABG pO2 ABG pO2 ABG HCO3 ABG O2 Saturation ABG Base Excess ABG Hemoglobin ABG Oxyhemoglobin ABG Sodium ABG Potassium ABG Chloride ABG Glucose Oxyhemoglobin Carboxyhemoglobin Sodium 135 L Potassium 3.5 L Chloride 90.4 L Carbon Dioxide 38 H BUN Creatinine 0.5 L Glucose 190 H POC Glucose 176 H Lactic Acid Calcium Magnesium Ferritin 1496.0 H Total Bilirubin Direct Bilirubin AST ALT 81 H Alkaline Phosphatase Lactate Dehydrogenase C-Reactive Protein Total Protein Albumin 2.9 L Triglycerides Lipase Arterial Blood Glucose Arterial Blood Ionized Calcium Urine WBC (Auto) Coronavirus (PCR) SARS-CoV-2 IgG Ab Crossmatch 06/14/20 06/15/20 06/15/20 23:31 04:00 05:00 WBC RBC Hgb Hct MCV MCH MCHC RDW Lymph % (Auto) Mathews % (Auto) Lymph # (Auto) Mathews # (Auto) Baso # (Auto) Seg Neutrophils % Seg Neuts % (Manual) Lymphocytes % (Manual) Nucleated RBC % Seg Neutrophils # Seg Neutrophils # Man Lymphocytes # (Manual) Monocytes # (Manual) Eosinophils # (Manual) PT INR APTT D-Dimer Heparin Anti-Xa Level ABG pH POC ABG pCO2 POC ABG pO2 ABG pO2 ABG HCO3 ABG O2 Saturation ABG Base Excess ABG Hemoglobin ABG Oxyhemoglobin ABG Sodium ABG Potassium ABG Chloride ABG Glucose Oxyhemoglobin Carboxyhemoglobin Sodium 133 L Potassium Chloride 91.1 L Carbon Dioxide 34 H BUN Creatinine 0.4 L Glucose 159 H POC Glucose 200 H Lactic Acid Calcium Magnesium Ferritin Total Bilirubin 2.00 H Direct Bilirubin AST 47 H ALT 77 H Alkaline Phosphatase Lactate Dehydrogenase C-Reactive Protein Total Protein Albumin 2.6 L Triglycerides 152 H Lipase Arterial Blood Glucose Arterial Blood Ionized Calcium Urine WBC (Auto) Coronavirus (PCR) SARS-CoV-2 IgG Ab Crossmatch 06/15/20 06/15/20 06/15/20 05:35 06:27 11:38 WBC RBC Hgb Hct MCV MCH MCHC RDW Lymph % (Auto) Mathews % (Auto) Lymph # (Auto) Mathews # (Auto) Baso # (Auto) Seg Neutrophils % Seg Neuts % (Manual) Lymphocytes % (Manual) Nucleated RBC % Seg Neutrophils # Seg Neutrophils # Man Lymphocytes # (Manual) Monocytes # (Manual) Eosinophils # (Manual) PT INR APTT D-Dimer Heparin Anti-Xa Level ABG pH POC ABG pCO2 61.0 H POC ABG pO2 67.9 L ABG pO2 ABG HCO3 ABG O2 Saturation ABG Base Excess ABG Hemoglobin 10.4 L ABG Oxyhemoglobin ABG Sodium 132.7 L ABG Potassium 3.3 L ABG Chloride 92.0 L ABG Glucose 158 H Oxyhemoglobin Carboxyhemoglobin Sodium Potassium Chloride Carbon Dioxide BUN Creatinine Glucose POC Glucose 148 H 197 H Lactic Acid Calcium Magnesium Ferritin Total Bilirubin Direct Bilirubin AST ALT Alkaline Phosphatase Lactate Dehydrogenase C-Reactive Protein Total Protein Albumin Triglycerides Lipase Arterial Blood Glucose 158 H Arterial Blood Ionized Calcium Urine WBC (Auto) Coronavirus (PCR) SARS-CoV-2 IgG Ab Crossmatch 06/15/20 06/15/20 06/16/20 17:29 Unknown 00:01 WBC 20.7 H RBC 2.57 L Hgb 8.9 L Hct 25.8 L MCV 101 H MCH 35 H MCHC 35 H RDW 16.0 H Lymph % (Auto) Mathews % (Auto) Lymph # (Auto) Mathews # (Auto) Baso # (Auto) Seg Neutrophils % Seg Neuts % (Manual) 83.0 H Lymphocytes % (Manual) 8.0 L Nucleated RBC % Seg Neutrophils # Seg Neutrophils # Man 17.2 H Lymphocytes # (Manual) Monocytes # (Manual) 1.2 H Eosinophils # (Manual) PT INR APTT D-Dimer Heparin Anti-Xa Level ABG pH POC ABG pCO2 POC ABG pO2 ABG pO2 ABG HCO3 ABG O2 Saturation ABG Base Excess ABG Hemoglobin ABG Oxyhemoglobin ABG Sodium ABG Potassium ABG Chloride ABG Glucose Oxyhemoglobin Carboxyhemoglobin Sodium Potassium Chloride Carbon Dioxide BUN Creatinine Glucose POC Glucose 231 H 257 H Lactic Acid Calcium Magnesium Ferritin Total Bilirubin Direct Bilirubin AST ALT Alkaline Phosphatase Lactate Dehydrogenase C-Reactive Protein Total Protein Albumin Triglycerides Lipase Arterial Blood Glucose Arterial Blood Ionized Calcium Urine WBC (Auto) Coronavirus (PCR) SARS-CoV-2 IgG Ab Crossmatch 06/16/20 06/16/20 06/16/20 04:00 04:00 05:22 WBC 13.8 H RBC 2.03 L Hgb 7.6 L Hct 20.7 L MCV 102 H MCH 37 H MCHC 37 H RDW 16.2 H Lymph % (Auto) 4.4 L Mathews % (Auto) Lymph # (Auto) 0.6 L Mathews # (Auto) Baso # (Auto) Seg Neutrophils % Seg Neuts % (Manual) Lymphocytes % (Manual) Nucleated RBC % Seg Neutrophils # 12.7 H Seg Neutrophils # Man Lymphocytes # (Manual) Monocytes # (Manual) Eosinophils # (Manual) PT INR APTT D-Dimer Heparin Anti-Xa Level ABG pH POC ABG pCO2 POC ABG pO2 ABG pO2 ABG HCO3 ABG O2 Saturation ABG Base Excess ABG Hemoglobin ABG Oxyhemoglobin ABG Sodium ABG Potassium ABG Chloride ABG Glucose Oxyhemoglobin Carboxyhemoglobin Sodium 130 L Potassium Chloride 88.9 L Carbon Dioxide 36 H BUN Creatinine 0.3 L Glucose 276 H POC Glucose 250 H Lactic Acid Calcium Magnesium Ferritin Total Bilirubin Direct Bilirubin AST ALT Alkaline Phosphatase Lactate Dehydrogenase C-Reactive Protein Total Protein Albumin Triglycerides Lipase Arterial Blood Glucose Arterial Blood Ionized Calcium Urine WBC (Auto) Coronavirus (PCR) SARS-CoV-2 IgG Ab Crossmatch 06/16/20 06/16/20 06/17/20 12:44 18:18 00:39 WBC RBC Hgb Hct MCV MCH MCHC RDW Lymph % (Auto) Mathews % (Auto) Lymph # (Auto) Mathews # (Auto) Baso # (Auto) Seg Neutrophils % Seg Neuts % (Manual) Lymphocytes % (Manual) Nucleated RBC % Seg Neutrophils # Seg Neutrophils # Man Lymphocytes # (Manual) Monocytes # (Manual) Eosinophils # (Manual) PT INR APTT D-Dimer Heparin Anti-Xa Level ABG pH POC ABG pCO2 POC ABG pO2 ABG pO2 ABG HCO3 ABG O2 Saturation ABG Base Excess ABG Hemoglobin ABG Oxyhemoglobin ABG Sodium ABG Potassium ABG Chloride ABG Glucose Oxyhemoglobin Carboxyhemoglobin Sodium Potassium Chloride Carbon Dioxide BUN Creatinine Glucose POC Glucose 279 H 239 H 247 H Lactic Acid Calcium Magnesium Ferritin Total Bilirubin Direct Bilirubin AST ALT Alkaline Phosphatase Lactate Dehydrogenase C-Reactive Protein Total Protein Albumin Triglycerides Lipase Arterial Blood Glucose Arterial Blood Ionized Calcium Urine WBC (Auto) Coronavirus (PCR) SARS-CoV-2 IgG Ab Crossmatch 06/17/20 06/17/20 06/17/20 03:40 04:08 10:54 WBC RBC Hgb Hct MCV MCH MCHC RDW Lymph % (Auto) Mathews % (Auto) Lymph # (Auto) Mathews # (Auto) Baso # (Auto) Seg Neutrophils % Seg Neuts % (Manual) Lymphocytes % (Manual) Nucleated RBC % Seg Neutrophils # Seg Neutrophils # Man Lymphocytes # (Manual) Monocytes # (Manual) Eosinophils # (Manual) PT INR APTT D-Dimer Heparin Anti-Xa Level ABG pH POC ABG pCO2 65.7 H POC ABG pO2 ABG pO2 ABG HCO3 ABG O2 Saturation ABG Base Excess ABG Hemoglobin 11.9 L ABG Oxyhemoglobin ABG Sodium ABG Potassium ABG Chloride 93.0 L ABG Glucose 244 H Oxyhemoglobin Carboxyhemoglobin Sodium Potassium Chloride Carbon Dioxide BUN Creatinine Glucose POC Glucose 221 H 248 H Lactic Acid Calcium Magnesium Ferritin Total Bilirubin Direct Bilirubin AST ALT Alkaline Phosphatase Lactate Dehydrogenase C-Reactive Protein Total Protein Albumin Triglycerides Lipase Arterial Blood Glucose 244 H Arterial Blood Ionized Calcium Urine WBC (Auto) Coronavirus (PCR) SARS-CoV-2 IgG Ab Crossmatch 06/17/20 06/17/20 06/17/20 17:47 23:11 23:29 WBC RBC Hgb Hct MCV MCH MCHC RDW Lymph % (Auto) Mathews % (Auto) Lymph # (Auto) Mathews # (Auto) Baso # (Auto) Seg Neutrophils % Seg Neuts % (Manual) Lymphocytes % (Manual) Nucleated RBC % Seg Neutrophils # Seg Neutrophils # Man Lymphocytes # (Manual) Monocytes # (Manual) Eosinophils # (Manual) PT INR APTT D-Dimer Heparin Anti-Xa Level ABG pH POC ABG pCO2 85.2 H POC ABG pO2 48.4 L ABG pO2 ABG HCO3 ABG O2 Saturation ABG Base Excess ABG Hemoglobin 8.0 L ABG Oxyhemoglobin ABG Sodium ABG Potassium ABG Chloride 95.0 L ABG Glucose 292 H Oxyhemoglobin Carboxyhemoglobin Sodium Potassium Chloride Carbon Dioxide BUN Creatinine Glucose POC Glucose 245 H 252 H Lactic Acid Calcium Magnesium Ferritin Total Bilirubin Direct Bilirubin AST ALT Alkaline Phosphatase Lactate Dehydrogenase C-Reactive Protein Total Protein Albumin Triglycerides Lipase Arterial Blood Glucose 292 H Arterial Blood Ionized Calcium Urine WBC (Auto) Coronavirus (PCR) SARS-CoV-2 IgG Ab Crossmatch 06/18/20 06/18/20 06/18/20 03:14 05:34 11:47 WBC RBC Hgb Hct MCV MCH MCHC RDW Lymph % (Auto) Mathews % (Auto) Lymph # (Auto) Mathews # (Auto) Baso # (Auto) Seg Neutrophils % Seg Neuts % (Manual) Lymphocytes % (Manual) Nucleated RBC % Seg Neutrophils # Seg Neutrophils # Man Lymphocytes # (Manual) Monocytes # (Manual) Eosinophils # (Manual) PT INR APTT D-Dimer Heparin Anti-Xa Level ABG pH POC ABG pCO2 65.4 H POC ABG pO2 160.7 H ABG pO2 ABG HCO3 ABG O2 Saturation ABG Base Excess ABG Hemoglobin 7.8 L ABG Oxyhemoglobin ABG Sodium ABG Potassium ABG Chloride 95.0 L ABG Glucose 251 H Oxyhemoglobin Carboxyhemoglobin Sodium Potassium Chloride Carbon Dioxide BUN Creatinine Glucose POC Glucose 243 H 263 H Lactic Acid Calcium Magnesium Ferritin Total Bilirubin Direct Bilirubin AST ALT Alkaline Phosphatase Lactate Dehydrogenase C-Reactive Protein Total Protein Albumin Triglycerides Lipase Arterial Blood Glucose 251 H Arterial Blood Ionized Calcium Urine WBC (Auto) Coronavirus (PCR) SARS-CoV-2 IgG Ab Crossmatch 06/18/20 06/18/20 06/19/20 17:31 23:33 04:32 WBC RBC Hgb Hct MCV MCH MCHC RDW Lymph % (Auto) Mathews % (Auto) Lymph # (Auto) Mathews # (Auto) Baso # (Auto) Seg Neutrophils % Seg Neuts % (Manual) Lymphocytes % (Manual) Nucleated RBC % Seg Neutrophils # Seg Neutrophils # Man Lymphocytes # (Manual) Monocytes # (Manual) Eosinophils # (Manual) PT INR APTT D-Dimer Heparin Anti-Xa Level ABG pH POC ABG pCO2 83.1 H POC ABG pO2 65.8 L ABG pO2 ABG HCO3 ABG O2 Saturation ABG Base Excess ABG Hemoglobin 8.9 L ABG Oxyhemoglobin ABG Sodium ABG Potassium ABG Chloride 96.0 L ABG Glucose 297 H Oxyhemoglobin Carboxyhemoglobin Sodium Potassium Chloride Carbon Dioxide BUN Creatinine Glucose POC Glucose 286 H 238 H Lactic Acid Calcium Magnesium Ferritin Total Bilirubin Direct Bilirubin AST ALT Alkaline Phosphatase Lactate Dehydrogenase C-Reactive Protein Total Protein Albumin Triglycerides Lipase Arterial Blood Glucose 297 H Arterial Blood Ionized Calcium Urine WBC (Auto) Coronavirus (PCR) SARS-CoV-2 IgG Ab Crossmatch 06/19/20 06/19/20 06/19/20 05:55 11:20 17:12 WBC RBC Hgb Hct MCV MCH MCHC RDW Lymph % (Auto) Mathews % (Auto) Lymph # (Auto) Mathews # (Auto) Baso # (Auto) Seg Neutrophils % Seg Neuts % (Manual) Lymphocytes % (Manual) Nucleated RBC % Seg Neutrophils # Seg Neutrophils # Man Lymphocytes # (Manual) Monocytes # (Manual) Eosinophils # (Manual) PT INR APTT D-Dimer Heparin Anti-Xa Level ABG pH POC ABG pCO2 POC ABG pO2 ABG pO2 ABG HCO3 ABG O2 Saturation ABG Base Excess ABG Hemoglobin ABG Oxyhemoglobin ABG Sodium ABG Potassium ABG Chloride ABG Glucose Oxyhemoglobin Carboxyhemoglobin Sodium Potassium Chloride Carbon Dioxide BUN Creatinine Glucose POC Glucose 274 H 282 H 298 H Lactic Acid Calcium Magnesium Ferritin Total Bilirubin Direct Bilirubin AST ALT Alkaline Phosphatase Lactate Dehydrogenase C-Reactive Protein Total Protein Albumin Triglycerides Lipase Arterial Blood Glucose Arterial Blood Ionized Calcium Urine WBC (Auto) Coronavirus (PCR) SARS-CoV-2 IgG Ab Crossmatch 06/19/20 06/20/20 06/20/20 23:08 03:33 06:01 WBC RBC Hgb Hct MCV MCH MCHC RDW Lymph % (Auto) Mathews % (Auto) Lymph # (Auto) Mathews # (Auto) Baso # (Auto) Seg Neutrophils % Seg Neuts % (Manual) Lymphocytes % (Manual) Nucleated RBC % Seg Neutrophils # Seg Neutrophils # Man Lymphocytes # (Manual) Monocytes # (Manual) Eosinophils # (Manual) PT INR APTT D-Dimer Heparin Anti-Xa Level ABG pH POC ABG pCO2 POC ABG pO2 ABG pO2 69.9 L ABG HCO3 50.8 H ABG O2 Saturation ABG Base Excess 24.2 H ABG Hemoglobin 5.8 L ABG Oxyhemoglobin ABG Sodium ABG Potassium ABG Chloride ABG Glucose Oxyhemoglobin Carboxyhemoglobin Sodium Potassium Chloride Carbon Dioxide BUN Creatinine Glucose POC Glucose 293 H 182 H Lactic Acid Calcium Magnesium Ferritin Total Bilirubin Direct Bilirubin AST ALT Alkaline Phosphatase Lactate Dehydrogenase C-Reactive Protein Total Protein Albumin Triglycerides Lipase Arterial Blood Glucose Arterial Blood Ionized Calcium Urine WBC (Auto) Coronavirus (PCR) SARS-CoV-2 IgG Ab Crossmatch 06/20/20 06/20/20 06/20/20 11:47 17:46 23:37 WBC RBC Hgb Hct MCV MCH MCHC RDW Lymph % (Auto) Mathews % (Auto) Lymph # (Auto) Mathews # (Auto) Baso # (Auto) Seg Neutrophils % Seg Neuts % (Manual) Lymphocytes % (Manual) Nucleated RBC % Seg Neutrophils # Seg Neutrophils # Man Lymphocytes # (Manual) Monocytes # (Manual) Eosinophils # (Manual) PT INR APTT D-Dimer Heparin Anti-Xa Level ABG pH POC ABG pCO2 POC ABG pO2 ABG pO2 ABG HCO3 ABG O2 Saturation ABG Base Excess ABG Hemoglobin ABG Oxyhemoglobin ABG Sodium ABG Potassium ABG Chloride ABG Glucose Oxyhemoglobin Carboxyhemoglobin Sodium Potassium Chloride Carbon Dioxide BUN Creatinine Glucose POC Glucose 170 H 215 H 256 H Lactic Acid Calcium Magnesium Ferritin Total Bilirubin Direct Bilirubin AST ALT Alkaline Phosphatase Lactate Dehydrogenase C-Reactive Protein Total Protein Albumin Triglycerides Lipase Arterial Blood Glucose Arterial Blood Ionized Calcium Urine WBC (Auto) Coronavirus (PCR) SARS-CoV-2 IgG Ab Crossmatch 06/21/20 06/21/20 06/21/20 04:00 05:14 05:51 WBC RBC Hgb Hct MCV MCH MCHC RDW Lymph % (Auto) Mathews % (Auto) Lymph # (Auto) Mathews # (Auto) Baso # (Auto) Seg Neutrophils % Seg Neuts % (Manual) Lymphocytes % (Manual) Nucleated RBC % Seg Neutrophils # Seg Neutrophils # Man Lymphocytes # (Manual) Monocytes # (Manual) Eosinophils # (Manual) PT INR APTT D-Dimer Heparin Anti-Xa Level ABG pH 7.474 H POC ABG pCO2 POC ABG pO2 ABG pO2 ABG HCO3 52.1 H ABG O2 Saturation ABG Base Excess 23.3 H ABG Hemoglobin 5.3 L ABG Oxyhemoglobin ABG Sodium ABG Potassium ABG Chloride ABG Glucose Oxyhemoglobin 93.8 L Carboxyhemoglobin Sodium Potassium Chloride Carbon Dioxide BUN Creatinine Glucose POC Glucose 122 H 129 H Lactic Acid Calcium Magnesium Ferritin Total Bilirubin Direct Bilirubin AST ALT Alkaline Phosphatase Lactate Dehydrogenase C-Reactive Protein Total Protein Albumin Triglycerides Lipase Arterial Blood Glucose Arterial Blood Ionized Calcium Urine WBC (Auto) Coronavirus (PCR) SARS-CoV-2 IgG Ab Crossmatch 06/21/20 06/21/20 06/21/20 11:00 11:00 11:42 WBC 14.2 H RBC 1.85 L Hgb 6.2 L Hct 19.5 L* MCV 105 H MCH 34 H MCHC RDW 18.0 H Lymph % (Auto) Mathews % (Auto) Lymph # (Auto) Mathews # (Auto) Baso # (Auto) Seg Neutrophils % Seg Neuts % (Manual) Lymphocytes % (Manual) Nucleated RBC % Seg Neutrophils # Seg Neutrophils # Man Lymphocytes # (Manual) Monocytes # (Manual) Eosinophils # (Manual) PT INR APTT D-Dimer Heparin Anti-Xa Level ABG pH POC ABG pCO2 POC ABG pO2 ABG pO2 ABG HCO3 ABG O2 Saturation ABG Base Excess ABG Hemoglobin ABG Oxyhemoglobin ABG Sodium ABG Potassium ABG Chloride ABG Glucose Oxyhemoglobin Carboxyhemoglobin Sodium 147 H Potassium Chloride Carbon Dioxide 51 H* BUN 31 H Creatinine 0.5 L Glucose 224 H POC Glucose 217 H Lactic Acid Calcium Magnesium Ferritin Total Bilirubin Direct Bilirubin AST ALT Alkaline Phosphatase Lactate Dehydrogenase C-Reactive Protein Total Protein Albumin Triglycerides Lipase Arterial Blood Glucose Arterial Blood Ionized Calcium Urine WBC (Auto) Coronavirus (PCR) SARS-CoV-2 IgG Ab Crossmatch 06/21/20 06/21/20 06/21/20 14:18 14:30 18:36 WBC RBC Hgb Hct MCV MCH MCHC RDW Lymph % (Auto) Mathews % (Auto) Lymph # (Auto) Mathews # (Auto) Baso # (Auto) Seg Neutrophils % Seg Neuts % (Manual) Lymphocytes % (Manual) Nucleated RBC % Seg Neutrophils # Seg Neutrophils # Man Lymphocytes # (Manual) Monocytes # (Manual) Eosinophils # (Manual) PT 15.1 H INR 1.19 H APTT D-Dimer Heparin Anti-Xa Level ABG pH POC ABG pCO2 POC ABG pO2 ABG pO2 ABG HCO3 ABG O2 Saturation ABG Base Excess ABG Hemoglobin ABG Oxyhemoglobin ABG Sodium ABG Potassium ABG Chloride ABG Glucose Oxyhemoglobin Carboxyhemoglobin Sodium Potassium Chloride Carbon Dioxide BUN Creatinine Glucose POC Glucose 185 H Lactic Acid Calcium Magnesium Ferritin Total Bilirubin Direct Bilirubin AST ALT Alkaline Phosphatase Lactate Dehydrogenase C-Reactive Protein Total Protein Albumin Triglycerides Lipase Arterial Blood Glucose Arterial Blood Ionized Calcium Urine WBC (Auto) Coronavirus (PCR) SARS-CoV-2 IgG Ab Crossmatch See Detail 06/21/20 06/22/20 06/22/20 21:14 03:50 04:00 WBC RBC Hgb Hct MCV MCH MCHC RDW Lymph % (Auto) Mathews % (Auto) Lymph # (Auto) Mathews # (Auto) Baso # (Auto) Seg Neutrophils % Seg Neuts % (Manual) Lymphocytes % (Manual) Nucleated RBC % Seg Neutrophils # Seg Neutrophils # Man Lymphocytes # (Manual) Monocytes # (Manual) Eosinophils # (Manual) PT INR APTT D-Dimer Heparin Anti-Xa Level ABG pH 7.451 H POC ABG pCO2 POC ABG pO2 ABG pO2 ABG HCO3 47.5 H ABG O2 Saturation ABG Base Excess 22.0 H ABG Hemoglobin < 5.1 L ABG Oxyhemoglobin ABG Sodium ABG Potassium ABG Chloride ABG Glucose Oxyhemoglobin 94.1 L Carboxyhemoglobin Sodium 149 H Potassium 3.5 L Chloride Carbon Dioxide 42 H* D BUN 34 H Creatinine 0.4 L Glucose 219 H POC Glucose 250 H Lactic Acid Calcium Magnesium Ferritin Total Bilirubin Direct Bilirubin AST ALT Alkaline Phosphatase Lactate Dehydrogenase C-Reactive Protein Total Protein Albumin Triglycerides Lipase Arterial Blood Glucose Arterial Blood Ionized Calcium Urine WBC (Auto) Coronavirus (PCR) SARS-CoV-2 IgG Ab Crossmatch 06/22/20 06/22/20 06/22/20 12:16 14:29 17:56 WBC RBC Hgb Hct MCV MCH MCHC RDW Lymph % (Auto) Mathews % (Auto) Lymph # (Auto) Mathews # (Auto) Baso # (Auto) Seg Neutrophils % Seg Neuts % (Manual) Lymphocytes % (Manual) Nucleated RBC % Seg Neutrophils # Seg Neutrophils # Man Lymphocytes # (Manual) Monocytes # (Manual) Eosinophils # (Manual) PT 11.8 L INR APTT 23.5 L D-Dimer Heparin Anti-Xa Level ABG pH POC ABG pCO2 POC ABG pO2 ABG pO2 ABG HCO3 ABG O2 Saturation ABG Base Excess ABG Hemoglobin ABG Oxyhemoglobin ABG Sodium ABG Potassium ABG Chloride ABG Glucose Oxyhemoglobin Carboxyhemoglobin Sodium Potassium Chloride Carbon Dioxide BUN Creatinine Glucose POC Glucose 215 H 215 H Lactic Acid Calcium Magnesium Ferritin Total Bilirubin Direct Bilirubin AST ALT Alkaline Phosphatase Lactate Dehydrogenase C-Reactive Protein Total Protein Albumin Triglycerides Lipase Arterial Blood Glucose Arterial Blood Ionized Calcium Urine WBC (Auto) Coronavirus (PCR) SARS-CoV-2 IgG Ab Crossmatch 06/22/20 06/22/20 06/22/20 23:36 23:45 Unknown WBC 14.1 H RBC 2.70 L Hgb 8.9 L 8.9 L Hct 26.9 L 27.2 L D MCV 101 H MCH 33 H MCHC RDW 17.7 H Lymph % (Auto) Mathews % (Auto) Lymph # (Auto) Mathews # (Auto) Baso # (Auto) Seg Neutrophils % Seg Neuts % (Manual) 92.0 H Lymphocytes % (Manual) 5.0 L Nucleated RBC % Seg Neutrophils # Seg Neutrophils # Man 13.0 H Lymphocytes # (Manual) 0.7 L Monocytes # (Manual) Eosinophils # (Manual) PT INR APTT D-Dimer Heparin Anti-Xa Level ABG pH POC ABG pCO2 POC ABG pO2 ABG pO2 ABG HCO3 ABG O2 Saturation ABG Base Excess ABG Hemoglobin ABG Oxyhemoglobin ABG Sodium ABG Potassium ABG Chloride ABG Glucose Oxyhemoglobin Carboxyhemoglobin Sodium Potassium Chloride Carbon Dioxide BUN Creatinine Glucose POC Glucose 208 H Lactic Acid Calcium Magnesium Ferritin Total Bilirubin Direct Bilirubin AST ALT Alkaline Phosphatase Lactate Dehydrogenase C-Reactive Protein Total Protein Albumin Triglycerides Lipase Arterial Blood Glucose Arterial Blood Ionized Calcium Urine WBC (Auto) Coronavirus (PCR) SARS-CoV-2 IgG Ab Crossmatch 06/23/20 06/23/20 06/23/20 05:17 05:19 06:50 WBC RBC Hgb Hct MCV MCH MCHC RDW Lymph % (Auto) [place]ws % (Auto) Lymph # (Auto) Mathews # (Auto) Baso # (Auto) Seg Neutrophils % Seg Neuts % (Manual) Lymphocytes % (Manual) Nucleated RBC % Seg Neutrophils # Seg Neutrophils # Man Lymphocytes # (Manual) Monocytes # (Manual) Eosinophils # (Manual) PT INR APTT D-Dimer Heparin Anti-Xa Level ABG pH POC ABG pCO2 69.7 H POC ABG pO2 63.3 L ABG pO2 ABG HCO3 ABG O2 Saturation ABG Base Excess ABG Hemoglobin 10.1 L ABG Oxyhemoglobin ABG Sodium ABG Potassium 3.3 L ABG Chloride ABG Glucose 226 H Oxyhemoglobin Carboxyhemoglobin Sodium Potassium 3.0 L Chloride Carbon Dioxide 41 H* BUN 26 H Creatinine 0.4 L Glucose 209 H POC Glucose 200 H Lactic Acid Calcium Magnesium Ferritin Total Bilirubin Direct Bilirubin AST ALT Alkaline Phosphatase Lactate Dehydrogenase C-Reactive Protein Total Protein Albumin 2.9 L Triglycerides Lipase Arterial Blood Glucose 226 H Arterial Blood Ionized Calcium Urine WBC (Auto) Coronavirus (PCR) SARS-CoV-2 IgG Ab Crossmatch 06/23/20 06/23/20 06/23/20 09:41 12:04 18:16 WBC RBC Hgb 9.1 L Hct 28.0 L MCV MCH MCHC RDW Lymph % (Auto) Mathews % (Auto) Lymph # (Auto) Mathews # (Auto) Baso # (Auto) Seg Neutrophils % Seg Neuts % (Manual) Lymphocytes % (Manual) Nucleated RBC % Seg Neutrophils # Seg Neutrophils # Man Lymphocytes # (Manual) Monocytes # (Manual) Eosinophils # (Manual) PT INR APTT D-Dimer Heparin Anti-Xa Level ABG pH POC ABG pCO2 POC ABG pO2 ABG pO2 ABG HCO3 ABG O2 Saturation ABG Base Excess ABG Hemoglobin ABG Oxyhemoglobin ABG Sodium ABG Potassium ABG Chloride ABG Glucose Oxyhemoglobin Carboxyhemoglobin Sodium Potassium Chloride Carbon Dioxide BUN Creatinine Glucose POC Glucose 146 H 162 H Lactic Acid Calcium Magnesium Ferritin Total Bilirubin Direct Bilirubin AST ALT Alkaline Phosphatase Lactate Dehydrogenase C-Reactive Protein Total Protein Albumin Triglycerides Lipase Arterial Blood Glucose Arterial Blood Ionized Calcium Urine WBC (Auto) Coronavirus (PCR) SARS-CoV-2 IgG Ab Crossmatch 06/23/20 06/23/20 06/24/20 23:24 23:41 02:39 WBC RBC Hgb 8.2 L 8.8 L Hct 24.9 L 26.8 L MCV MCH MCHC RDW Lymph % (Auto) Mathews % (Auto) Lymph # (Auto) Mathews # (Auto) Baso # (Auto) Seg Neutrophils % Seg Neuts % (Manual) Lymphocytes % (Manual) Nucleated RBC % Seg Neutrophils # Seg Neutrophils # Man Lymphocytes # (Manual) Monocytes # (Manual) Eosinophils # (Manual) PT INR APTT D-Dimer Heparin Anti-Xa Level ABG pH POC ABG pCO2 POC ABG pO2 ABG pO2 ABG HCO3 ABG O2 Saturation ABG Base Excess ABG Hemoglobin ABG Oxyhemoglobin ABG Sodium ABG Potassium ABG Chloride ABG Glucose Oxyhemoglobin Carboxyhemoglobin Sodium Potassium Chloride Carbon Dioxide BUN Creatinine Glucose POC Glucose 248 H Lactic Acid Calcium Magnesium Ferritin Total Bilirubin Direct Bilirubin AST ALT Alkaline Phosphatase Lactate Dehydrogenase C-Reactive Protein Total Protein Albumin Triglycerides Lipase Arterial Blood Glucose Arterial Blood Ionized Calcium Urine WBC (Auto) Coronavirus (PCR) SARS-CoV-2 IgG Ab Crossmatch 06/24/20 06/24/20 06/24/20 02:39 02:45 05:31 WBC RBC Hgb Hct MCV MCH MCHC RDW Lymph % (Auto) [place]ws % (Auto) Lymph # (Auto) [place]ws # (Auto) Baso # (Auto) Seg Neutrophils % Seg Neuts % (Manual) Lymphocytes % (Manual) Nucleated RBC % Seg Neutrophils # Seg Neutrophils # Man Lymphocytes # (Manual) Monocytes # (Manual) Eosinophils # (Manual) PT INR APTT D-Dimer Heparin Anti-Xa Level ABG pH POC ABG pCO2 66.9 H POC ABG pO2 109.7 H ABG pO2 ABG HCO3 ABG O2 Saturation ABG Base Excess ABG Hemoglobin 9.7 L ABG Oxyhemoglobin ABG Sodium 135.0 L ABG Potassium ABG Chloride 97.0 L ABG Glucose 277 H Oxyhemoglobin Carboxyhemoglobin Sodium 136 L Potassium Chloride 95.0 L Carbon Dioxide 34 H D BUN 24 H Creatinine 0.3 L Glucose 260 H POC Glucose 164 H Lactic Acid Calcium Magnesium Ferritin Total Bilirubin Direct Bilirubin AST ALT Alkaline Phosphatase Lactate Dehydrogenase C-Reactive Protein Total Protein 5.2 L Albumin 2.6 L Triglycerides Lipase Arterial Blood Glucose 277 H Arterial Blood Ionized Calcium Urine WBC (Auto) Coronavirus (PCR) SARS-CoV-2 IgG Ab Crossmatch 06/24/20 06/24/20 06/24/20 10:00 11:49 17:39 WBC RBC Hgb 8.9 L Hct 26.5 L MCV MCH MCHC RDW Lymph % (Auto) [place]ws % (Auto) Lymph # (Auto) Mathews # (Auto) Baso # (Auto) Seg Neutrophils % Seg Neuts % (Manual) Lymphocytes % (Manual) Nucleated RBC % Seg Neutrophils # Seg Neutrophils # Man Lymphocytes # (Manual) Monocytes # (Manual) Eosinophils # (Manual) PT INR APTT D-Dimer Heparin Anti-Xa Level ABG pH POC ABG pCO2 POC ABG pO2 ABG pO2 ABG HCO3 ABG O2 Saturation ABG Base Excess ABG Hemoglobin ABG Oxyhemoglobin ABG Sodium ABG Potassium ABG Chloride ABG Glucose Oxyhemoglobin Carboxyhemoglobin Sodium Potassium Chloride Carbon Dioxide BUN Creatinine Glucose POC Glucose 198 H 223 H Lactic Acid Calcium Magnesium Ferritin Total Bilirubin Direct Bilirubin AST ALT Alkaline Phosphatase Lactate Dehydrogenase C-Reactive Protein Total Protein Albumin Triglycerides Lipase Arterial Blood Glucose Arterial Blood Ionized Calcium Urine WBC (Auto) Coronavirus (PCR) SARS-CoV-2 IgG Ab Crossmatch 06/24/20 06/25/20 06/25/20 23:56 02:16 04:08 WBC RBC Hgb Hct MCV MCH MCHC RDW Lymph % (Auto) [place]ws % (Auto) Lymph # (Auto) Mathews # (Auto) Baso # (Auto) Seg Neutrophils % Seg Neuts % (Manual) Lymphocytes % (Manual) Nucleated RBC % Seg Neutrophils # Seg Neutrophils # Man Lymphocytes # (Manual) Monocytes # (Manual) Eosinophils # (Manual) PT INR APTT D-Dimer Heparin Anti-Xa Level ABG pH 7.454 H POC ABG pCO2 56.9 H POC ABG pO2 61.0 L ABG pO2 ABG HCO3 ABG O2 Saturation ABG Base Excess ABG Hemoglobin ABG Oxyhemoglobin ABG Sodium 134.3 L ABG Potassium ABG Chloride 92.0 L ABG Glucose 246 H Oxyhemoglobin Carboxyhemoglobin Sodium 134 L Potassium Chloride 89.7 L Carbon Dioxide 36 H BUN Creatinine 0.3 L Glucose 254 H POC Glucose 225 H Lactic Acid Calcium Magnesium Ferritin Total Bilirubin Direct Bilirubin AST ALT Alkaline Phosphatase Lactate Dehydrogenase C-Reactive Protein Total Protein Albumin 2.9 L Triglycerides Lipase Arterial Blood Glucose 246 H Arterial Blood Ionized Calcium Urine WBC (Auto) Coronavirus (PCR) SARS-CoV-2 IgG Ab Crossmatch 06/25/20 06/25/20 06/25/20 05:44 11:35 17:33 WBC RBC Hgb Hct MCV MCH MCHC RDW Lymph % (Auto) [place]ws % (Auto) Lymph # (Auto) Mathews # (Auto) Baso # (Auto) Seg Neutrophils % Seg Neuts % (Manual) Lymphocytes % (Manual) Nucleated RBC % Seg Neutrophils # Seg Neutrophils # Man Lymphocytes # (Manual) Monocytes # (Manual) Eosinophils # (Manual) PT INR APTT D-Dimer Heparin Anti-Xa Level ABG pH POC ABG pCO2 POC ABG pO2 ABG pO2 ABG HCO3 ABG O2 Saturation ABG Base Excess ABG Hemoglobin ABG Oxyhemoglobin ABG Sodium ABG Potassium ABG Chloride ABG Glucose Oxyhemoglobin Carboxyhemoglobin Sodium Potassium Chloride Carbon Dioxide BUN Creatinine Glucose POC Glucose 170 H 175 H 229 H Lactic Acid Calcium Magnesium Ferritin Total Bilirubin Direct Bilirubin AST ALT Alkaline Phosphatase Lactate Dehydrogenase C-Reactive Protein Total Protein Albumin Triglycerides Lipase Arterial Blood Glucose Arterial Blood Ionized Calcium Urine WBC (Auto) Coronavirus (PCR) SARS-CoV-2 IgG Ab Crossmatch 06/25/20 06/26/20 06/26/20 23:55 02:17 02:17 WBC RBC Hgb 10.0 L Hct 30.4 L MCV MCH MCHC RDW Lymph % (Auto) Mathews % (Auto) Lymph # (Auto) Mathews # (Auto) Baso # (Auto) Seg Neutrophils % Seg Neuts % (Manual) Lymphocytes % (Manual) Nucleated RBC % Seg Neutrophils # Seg Neutrophils # Man Lymphocytes # (Manual) Monocytes # (Manual) Eosinophils # (Manual) PT INR APTT D-Dimer Heparin Anti-Xa Level ABG pH POC ABG pCO2 POC ABG pO2 ABG pO2 ABG HCO3 ABG O2 Saturation ABG Base Excess ABG Hemoglobin ABG Oxyhemoglobin ABG Sodium ABG Potassium ABG Chloride ABG Glucose Oxyhemoglobin Carboxyhemoglobin Sodium 136 L Potassium Chloride 90.1 L Carbon Dioxide 39 H BUN Creatinine 0.2 L Glucose 232 H POC Glucose 192 H Lactic Acid Calcium Magnesium Ferritin Total Bilirubin Direct Bilirubin AST ALT Alkaline Phosphatase Lactate Dehydrogenase C-Reactive Protein Total Protein 6.1 L Albumin 2.9 L Triglycerides Lipase Arterial Blood Glucose Arterial Blood Ionized Calcium Urine WBC (Auto) Coronavirus (PCR) SARS-CoV-2 IgG Ab Crossmatch 06/26/20 06/26/20 06/26/20 04:15 04:49 05:28 WBC RBC Hgb Hct MCV MCH MCHC RDW Lymph % (Auto) [place]ws % (Auto) Lymph # (Auto) Mathews # (Auto) Baso # (Auto) Seg Neutrophils % Seg Neuts % (Manual) Lymphocytes % (Manual) Nucleated RBC % Seg Neutrophils # Seg Neutrophils # Man Lymphocytes # (Manual) Monocytes # (Manual) Eosinophils # (Manual) PT INR APTT D-Dimer Heparin Anti-Xa Level ABG pH 7.453 H POC ABG pCO2 59.6 H POC ABG pO2 ABG pO2 ABG HCO3 ABG O2 Saturation ABG Base Excess ABG Hemoglobin 10.0 L ABG Oxyhemoglobin ABG Sodium 134.2 L ABG Potassium 3.3 L ABG Chloride 92.0 L ABG Glucose 305 H Oxyhemoglobin Carboxyhemoglobin Sodium Potassium Chloride Carbon Dioxide BUN Creatinine Glucose POC Glucose 234 H Lactic Acid Calcium Magnesium Ferritin Total Bilirubin Direct Bilirubin AST ALT Alkaline Phosphatase Lactate Dehydrogenase C-Reactive Protein Total Protein Albumin Triglycerides 203 H Lipase Arterial Blood Glucose 305 H Arterial Blood Ionized Calcium Urine WBC (Auto) Coronavirus (PCR) SARS-CoV-2 IgG Ab Crossmatch 06/26/20 06/26/20 06/26/20 11:58 17:58 21:32 WBC RBC Hgb Hct MCV MCH MCHC RDW Lymph % (Auto) Mathews % (Auto) Lymph # (Auto) Mathews # (Auto) Baso # (Auto) Seg Neutrophils % Seg Neuts % (Manual) Lymphocytes % (Manual) Nucleated RBC % Seg Neutrophils # Seg Neutrophils # Man Lymphocytes # (Manual) Monocytes # (Manual) Eosinophils # (Manual) PT INR APTT D-Dimer Heparin Anti-Xa Level ABG pH POC ABG pCO2 POC ABG pO2 ABG pO2 ABG HCO3 ABG O2 Saturation ABG Base Excess ABG Hemoglobin ABG Oxyhemoglobin ABG Sodium ABG Potassium ABG Chloride ABG Glucose Oxyhemoglobin Carboxyhemoglobin Sodium Potassium Chloride Carbon Dioxide BUN Creatinine Glucose POC Glucose 198 H 193 H 191 H Lactic Acid Calcium Magnesium Ferritin Total Bilirubin Direct Bilirubin AST ALT Alkaline Phosphatase Lactate Dehydrogenase C-Reactive Protein Total Protein Albumin Triglycerides Lipase Arterial Blood Glucose Arterial Blood Ionized Calcium Urine WBC (Auto) Coronavirus (PCR) SARS-CoV-2 IgG Ab Crossmatch 06/26/20 06/27/20 06/27/20 23:40 04:35 05:32 WBC RBC Hgb Hct MCV MCH MCHC RDW Lymph % (Auto) [place]ws % (Auto) Lymph # (Auto) [place]ws # (Auto) Baso # (Auto) Seg Neutrophils % Seg Neuts % (Manual) Lymphocytes % (Manual) Nucleated RBC % Seg Neutrophils # Seg Neutrophils # Man Lymphocytes # (Manual) Monocytes # (Manual) Eosinophils # (Manual) PT INR APTT D-Dimer Heparin Anti-Xa Level ABG pH 7.464 H POC ABG pCO2 60.8 H POC ABG pO2 ABG pO2 ABG HCO3 ABG O2 Saturation ABG Base Excess ABG Hemoglobin 10.1 L ABG Oxyhemoglobin ABG Sodium ABG Potassium 2.9 L ABG Chloride 92.0 L ABG Glucose 298 H Oxyhemoglobin Carboxyhemoglobin Sodium Potassium Chloride Carbon Dioxide BUN Creatinine Glucose POC Glucose 241 H 211 H Lactic Acid Calcium Magnesium Ferritin Total Bilirubin Direct Bilirubin AST ALT Alkaline Phosphatase Lactate Dehydrogenase C-Reactive Protein Total Protein Albumin Triglycerides Lipase Arterial Blood Glucose 298 H Arterial Blood Ionized Calcium Urine WBC (Auto) Coronavirus (PCR) SARS-CoV-2 IgG Ab Crossmatch 06/27/20 06/27/20 06/27/20 12:37 18:08 20:52 WBC RBC Hgb Hct MCV MCH MCHC RDW Lymph % (Auto) [place]ws % (Auto) Lymph # (Auto) Mathews # (Auto) Baso # (Auto) Seg Neutrophils % Seg Neuts % (Manual) Lymphocytes % (Manual) Nucleated RBC % Seg Neutrophils # Seg Neutrophils # Man Lymphocytes # (Manual) Monocytes # (Manual) Eosinophils # (Manual) PT INR APTT D-Dimer Heparin Anti-Xa Level ABG pH POC ABG pCO2 POC ABG pO2 ABG pO2 ABG HCO3 ABG O2 Saturation ABG Base Excess ABG Hemoglobin ABG Oxyhemoglobin ABG Sodium ABG Potassium ABG Chloride ABG Glucose Oxyhemoglobin Carboxyhemoglobin Sodium Potassium Chloride Carbon Dioxide BUN Creatinine Glucose POC Glucose 182 H 197 H 195 H Lactic Acid Calcium Magnesium Ferritin Total Bilirubin Direct Bilirubin AST ALT Alkaline Phosphatase Lactate Dehydrogenase C-Reactive Protein Total Protein Albumin Triglycerides Lipase Arterial Blood Glucose Arterial Blood Ionized Calcium Urine WBC (Auto) Coronavirus (PCR) SARS-CoV-2 IgG Ab Crossmatch 06/27/20 06/28/20 06/28/20 Unknown 04:17 04:50 WBC RBC Hgb Hct MCV MCH MCHC RDW Lymph % (Auto) [place]ws % (Auto) Lymph # (Auto) Mathews # (Auto) Baso # (Auto) Seg Neutrophils % Seg Neuts % (Manual) Lymphocytes % (Manual) Nucleated RBC % Seg Neutrophils # Seg Neutrophils # Man Lymphocytes # (Manual) Monocytes # (Manual) Eosinophils # (Manual) PT INR APTT D-Dimer Heparin Anti-Xa Level ABG pH POC ABG pCO2 58.6 H POC ABG pO2 60.1 L ABG pO2 ABG HCO3 ABG O2 Saturation ABG Base Excess ABG Hemoglobin 10.0 L ABG Oxyhemoglobin ABG Sodium 125.3 L ABG Potassium ABG Chloride 93.0 L ABG Glucose 308 H Oxyhemoglobin Carboxyhemoglobin Sodium Potassium 2.9 L* Chloride 93.4 L Carbon Dioxide 42 H* BUN Creatinine 0.3 L Glucose 211 H POC Glucose 252 H Lactic Acid Calcium 8.1 L Magnesium Ferritin Total Bilirubin Direct Bilirubin AST ALT Alkaline Phosphatase Lactate Dehydrogenase C-Reactive Protein Total Protein 5.1 L Albumin 2.4 L Triglycerides Lipase Arterial Blood Glucose 308 H Arterial Blood Ionized Calcium Urine WBC (Auto) Coronavirus (PCR) SARS-CoV-2 IgG Ab Crossmatch 06/28/20 06/28/20 06/28/20 06:35 06:35 11:36 WBC 18.9 H RBC 2.85 L Hgb 9.5 L Hct 28.4 L MCV 100 H MCH 33 H MCHC RDW 17.3 H Lymph % (Auto) Mathews % (Auto) Lymph # (Auto) Mathews # (Auto) Baso # (Auto) Seg Neutrophils % 88.6 H Seg Neuts % (Manual) 95.0 H Lymphocytes % (Manual) 1.0 L Nucleated RBC % Seg Neutrophils # 15.9 H Seg Neutrophils # Man 18.0 H Lymphocytes # (Manual) 0.2 L Monocytes # (Manual) Eosinophils # (Manual) PT INR APTT D-Dimer Heparin Anti-Xa Level ABG pH POC ABG pCO2 POC ABG pO2 ABG pO2 ABG HCO3 ABG O2 Saturation ABG Base Excess ABG Hemoglobin ABG Oxyhemoglobin ABG Sodium ABG Potassium ABG Chloride ABG Glucose Oxyhemoglobin Carboxyhemoglobin Sodium Potassium Chloride 94.2 L Carbon Dioxide 38 H BUN Creatinine 0.3 L Glucose 228 H POC Glucose 243 H Lactic Acid Calcium Magnesium Ferritin Total Bilirubin Direct Bilirubin AST ALT Alkaline Phosphatase Lactate Dehydrogenase C-Reactive Protein Total Protein 6.1 L Albumin 2.7 L Triglycerides Lipase Arterial Blood Glucose Arterial Blood Ionized Calcium Urine WBC (Auto) Coronavirus (PCR) SARS-CoV-2 IgG Ab Crossmatch 06/28/20 06/28/20 06/29/20 16:53 21:10 00:06 WBC RBC Hgb Hct MCV MCH MCHC RDW Lymph % (Auto) Mathews % (Auto) Lymph # (Auto) Mathews # (Auto) Baso # (Auto) Seg Neutrophils % Seg Neuts % (Manual) Lymphocytes % (Manual) Nucleated RBC % Seg Neutrophils # Seg Neutrophils # Man Lymphocytes # (Manual) Monocytes # (Manual) Eosinophils # (Manual) PT INR APTT D-Dimer Heparin Anti-Xa Level ABG pH POC ABG pCO2 POC ABG pO2 ABG pO2 ABG HCO3 ABG O2 Saturation ABG Base Excess ABG Hemoglobin ABG Oxyhemoglobin ABG Sodium ABG Potassium ABG Chloride ABG Glucose Oxyhemoglobin Carboxyhemoglobin Sodium Potassium Chloride Carbon Dioxide BUN Creatinine Glucose POC Glucose 211 H 195 H 200 H Lactic Acid Calcium Magnesium Ferritin Total Bilirubin Direct Bilirubin AST ALT Alkaline Phosphatase Lactate Dehydrogenase C-Reactive Protein Total Protein Albumin Triglycerides Lipase Arterial Blood Glucose Arterial Blood Ionized Calcium Urine WBC (Auto) Coronavirus (PCR) SARS-CoV-2 IgG Ab Crossmatch 06/29/20 06/29/20 06/29/20 03:11 04:00 04:00 WBC 18.8 H RBC 2.82 L Hgb 10.1 L Hct 28.5 L MCV 101 H MCH 36 H MCHC 36 H RDW 17.5 H Lymph % (Auto) 10.7 L Mathews % (Auto) Lymph # (Auto) Mathews # (Auto) 1.0 H Baso # (Auto) 0.3 H Seg Neutrophils % 82.2 H Seg Neuts % (Manual) Lymphocytes % (Manual) Nucleated RBC % Seg Neutrophils # 15.5 H Seg Neutrophils # Man Lymphocytes # (Manual) Monocytes # (Manual) Eosinophils # (Manual) PT INR APTT D-Dimer Heparin Anti-Xa Level ABG pH POC ABG pCO2 57.5 H POC ABG pO2 69.1 L ABG pO2 ABG HCO3 ABG O2 Saturation ABG Base Excess ABG Hemoglobin 10.2 L ABG Oxyhemoglobin 92.3 L ABG Sodium 130.7 L ABG Potassium 3.2 L ABG Chloride 93.0 L ABG Glucose 228 H Oxyhemoglobin Carboxyhemoglobin Sodium 134 L Potassium 3.3 L Chloride 89.5 L Carbon Dioxide 40 H BUN Creatinine 0.2 L Glucose 190 H POC Glucose Lactic Acid Calcium Magnesium Ferritin Total Bilirubin Direct Bilirubin AST < 5 L ALT < 5 L Alkaline Phosphatase Lactate Dehydrogenase C-Reactive Protein Total Protein 5.9 L Albumin 2.2 L Triglycerides Lipase Arterial Blood Glucose 228 H Arterial Blood Ionized Calcium Urine WBC (Auto) Coronavirus (PCR) SARS-CoV-2 IgG Ab Crossmatch 06/29/20 06/29/20 06/29/20 05:00 05:23 09:36 WBC RBC Hgb Hct MCV MCH MCHC RDW Lymph % (Auto) Mathews % (Auto) Lymph # (Auto) Mathews # (Auto) Baso # (Auto) Seg Neutrophils % Seg Neuts % (Manual) Lymphocytes % (Manual) Nucleated RBC % Seg Neutrophils # Seg Neutrophils # Man Lymphocytes # (Manual) Monocytes # (Manual) Eosinophils # (Manual) PT INR APTT D-Dimer Heparin Anti-Xa Level ABG pH POC ABG pCO2 POC ABG pO2 ABG pO2 ABG HCO3 ABG O2 Saturation ABG Base Excess ABG Hemoglobin ABG Oxyhemoglobin ABG Sodium ABG Potassium ABG Chloride ABG Glucose Oxyhemoglobin Carboxyhemoglobin Sodium Potassium Chloride Carbon Dioxide BUN Creatinine Glucose POC Glucose 165 H Lactic Acid Calcium Magnesium Ferritin Total Bilirubin Direct Bilirubin AST ALT Alkaline Phosphatase Lactate Dehydrogenase C-Reactive Protein Total Protein Albumin Triglycerides 1544 H 1799 H Lipase Arterial Blood Glucose Arterial Blood Ionized Calcium Urine WBC (Auto) Coronavirus (PCR) SARS-CoV-2 IgG Ab Crossmatch 06/29/20 06/29/20 06/29/20 09:36 12:02 18:00 WBC RBC Hgb Hct MCV MCH MCHC RDW Lymph % (Auto) Mathews % (Auto) Lymph # (Auto) Mathews # (Auto) Baso # (Auto) Seg Neutrophils % Seg Neuts % (Manual) Lymphocytes % (Manual) Nucleated RBC % Seg Neutrophils # Seg Neutrophils # Man Lymphocytes # (Manual) Monocytes # (Manual) Eosinophils # (Manual) PT INR APTT D-Dimer Heparin Anti-Xa Level ABG pH POC ABG pCO2 POC ABG pO2 ABG pO2 ABG HCO3 ABG O2 Saturation ABG Base Excess ABG Hemoglobin ABG Oxyhemoglobin ABG Sodium ABG Potassium ABG Chloride ABG Glucose Oxyhemoglobin Carboxyhemoglobin Sodium Potassium Chloride Carbon Dioxide BUN Creatinine Glucose POC Glucose 197 H 187 H Lactic Acid Calcium Magnesium Ferritin Total Bilirubin Direct Bilirubin AST ALT Alkaline Phosphatase Lactate Dehydrogenase C-Reactive Protein Total Protein Albumin Triglycerides Lipase 86 H Arterial Blood Glucose Arterial Blood Ionized Calcium Urine WBC (Auto) Coronavirus (PCR) SARS-CoV-2 IgG Ab Crossmatch 06/29/20 06/30/20 06/30/20 23:33 03:46 05:50 WBC RBC Hgb Hct MCV MCH MCHC RDW Lymph % (Auto) Mathews % (Auto) Lymph # (Auto) Mathews # (Auto) Baso # (Auto) Seg Neutrophils % Seg Neuts % (Manual) Lymphocytes % (Manual) Nucleated RBC % Seg Neutrophils # Seg Neutrophils # Man Lymphocytes # (Manual) Monocytes # (Manual) Eosinophils # (Manual) PT INR APTT D-Dimer Heparin Anti-Xa Level ABG pH 7.466 H POC ABG pCO2 57.3 H POC ABG pO2 66.1 L ABG pO2 ABG HCO3 ABG O2 Saturation ABG Base Excess ABG Hemoglobin 10.2 L ABG Oxyhemoglobin 92.3 L ABG Sodium 134.4 L ABG Potassium 3.2 L ABG Chloride 94.0 L ABG Glucose 178 H Oxyhemoglobin Carboxyhemoglobin Sodium Potassium Chloride Carbon Dioxide BUN Creatinine Glucose POC Glucose 170 H 170 H Lactic Acid Calcium Magnesium Ferritin Total Bilirubin Direct Bilirubin AST ALT Alkaline Phosphatase Lactate Dehydrogenase C-Reactive Protein Total Protein Albumin Triglycerides Lipase Arterial Blood Glucose 178 H Arterial Blood Ionized Calcium Urine WBC (Auto) Coronavirus (PCR) SARS-CoV-2 IgG Ab Crossmatch 06/30/20 06/30/20 06/30/20 07:00 07:00 12:04 WBC 15.6 H RBC 2.91 L Hgb 9.8 L Hct 29.7 L MCV 102 H MCH 34 H MCHC RDW 17.8 H Lymph % (Auto) Mathews % (Auto) Lymph # (Auto) Mathews # (Auto) Baso # (Auto) Seg Neutrophils % Seg Neuts % (Manual) Lymphocytes % (Manual) 5.0 L Nucleated RBC % Seg Neutrophils # Seg Neutrophils # Man 14.8 H Lymphocytes # (Manual) 0.8 L Monocytes # (Manual) Eosinophils # (Manual) PT INR APTT D-Dimer Heparin Anti-Xa Level ABG pH POC ABG pCO2 POC ABG pO2 ABG pO2 ABG HCO3 ABG O2 Saturation ABG Base Excess ABG Hemoglobin ABG Oxyhemoglobin ABG Sodium ABG Potassium ABG Chloride ABG Glucose Oxyhemoglobin Carboxyhemoglobin Sodium Potassium Chloride 93.3 L Carbon Dioxide 43 H* BUN Creatinine 0.3 L Glucose 260 H POC Glucose 245 H Lactic Acid Calcium Magnesium Ferritin Total Bilirubin Direct Bilirubin AST ALT Alkaline Phosphatase Lactate Dehydrogenase C-Reactive Protein Total Protein Albumin 2.8 L Triglycerides 452 H Lipase Arterial Blood Glucose Arterial Blood Ionized Calcium Urine WBC (Auto) Coronavirus (PCR) SARS-CoV-2 IgG Ab Crossmatch 06/30/20 07/01/20 07/01/20 17:32 00:02 05:02 WBC RBC Hgb Hct MCV MCH MCHC RDW Lymph % (Auto) Mathews % (Auto) Lymph # (Auto) Mathews # (Auto) Baso # (Auto) Seg Neutrophils % Seg Neuts % (Manual) Lymphocytes % (Manual) Nucleated RBC % Seg Neutrophils # Seg Neutrophils # Man Lymphocytes # (Manual) Monocytes # (Manual) Eosinophils # (Manual) PT INR APTT D-Dimer Heparin Anti-Xa Level ABG pH POC ABG pCO2 58.1 H POC ABG pO2 ABG pO2 ABG HCO3 ABG O2 Saturation ABG Base Excess ABG Hemoglobin 11.2 L ABG Oxyhemoglobin ABG Sodium 132.7 L ABG Potassium ABG Chloride 92.0 L ABG Glucose 238 H Oxyhemoglobin Carboxyhemoglobin Sodium Potassium Chloride Carbon Dioxide BUN Creatinine Glucose POC Glucose 209 H 208 H Lactic Acid Calcium Magnesium Ferritin Total Bilirubin Direct Bilirubin AST ALT Alkaline Phosphatase Lactate Dehydrogenase C-Reactive Protein Total Protein Albumin Triglycerides Lipase Arterial Blood Glucose 238 H Arterial Blood Ionized Calcium Urine WBC (Auto) Coronavirus (PCR) SARS-CoV-2 IgG Ab Crossmatch 07/01/20 07/01/20 07/01/20 06:16 06:41 06:41 WBC 18.1 H RBC 2.33 L Hgb 7.1 L Hct 21.3 L D MCV MCH MCHC RDW Lymph % (Auto) Mathews % (Auto) Lymph # (Auto) Mathews # (Auto) Baso # (Auto) Seg Neutrophils % Seg Neuts % (Manual) 82.0 H Lymphocytes % (Manual) 7.0 L Nucleated RBC % 1.0 H Seg Neutrophils # Seg Neutrophils # Man 14.8 H Lymphocytes # (Manual) Monocytes # (Manual) 1.1 H Eosinophils # (Manual) 0.5 H PT INR APTT D-Dimer Heparin Anti-Xa Level < 0.10 L ABG pH POC ABG pCO2 POC ABG pO2 ABG pO2 ABG HCO3 ABG O2 Saturation ABG Base Excess ABG Hemoglobin ABG Oxyhemoglobin ABG Sodium ABG Potassium ABG Chloride ABG Glucose Oxyhemoglobin Carboxyhemoglobin Sodium Potassium Chloride Carbon Dioxide BUN Creatinine Glucose POC Glucose 180 H Lactic Acid Calcium Magnesium Ferritin Total Bilirubin Direct Bilirubin AST ALT Alkaline Phosphatase Lactate Dehydrogenase C-Reactive Protein Total Protein Albumin Triglycerides Lipase Arterial Blood Glucose Arterial Blood Ionized Calcium Urine WBC (Auto) Coronavirus (PCR) SARS-CoV-2 IgG Ab Crossmatch 07/01/20 07/01/20 07/01/20 08:11 12:04 16:16 WBC RBC Hgb Hct MCV MCH MCHC RDW Lymph % (Auto) Mathews % (Auto) Lymph # (Auto) Mathews # (Auto) Baso # (Auto) Seg Neutrophils % Seg Neuts % (Manual) Lymphocytes % (Manual) Nucleated RBC % Seg Neutrophils # Seg Neutrophils # Man Lymphocytes # (Manual) Monocytes # (Manual) Eosinophils # (Manual) PT INR APTT D-Dimer Heparin Anti-Xa Level 1.02 H ABG pH POC ABG pCO2 POC ABG pO2 ABG pO2 ABG HCO3 ABG O2 Saturation ABG Base Excess ABG Hemoglobin ABG Oxyhemoglobin ABG Sodium ABG Potassium ABG Chloride ABG Glucose Oxyhemoglobin Carboxyhemoglobin Sodium 135 L Potassium 3.0 L Chloride 93.1 L Carbon Dioxide 40 H BUN Creatinine 0.3 L Glucose 140 H POC Glucose 223 H Lactic Acid Calcium Magnesium Ferritin Total Bilirubin Direct Bilirubin AST ALT Alkaline Phosphatase Lactate Dehydrogenase C-Reactive Protein Total Protein Albumin Triglycerides Lipase Arterial Blood Glucose Arterial Blood Ionized Calcium Urine WBC (Auto) Coronavirus (PCR) SARS-CoV-2 IgG Ab Crossmatch 07/01/20 07/01/20 07/02/20 17:09 23:19 00:56 WBC RBC Hgb Hct MCV MCH MCHC RDW Lymph % (Auto) Mathews % (Auto) Lymph # (Auto) Mathews # (Auto) Baso # (Auto) Seg Neutrophils % Seg Neuts % (Manual) Lymphocytes % (Manual) Nucleated RBC % Seg Neutrophils # Seg Neutrophils # Man Lymphocytes # (Manual) Monocytes # (Manual) Eosinophils # (Manual) PT INR APTT D-Dimer Heparin Anti-Xa Level 0.22 L ABG pH POC ABG pCO2 POC ABG pO2 ABG pO2 ABG HCO3 ABG O2 Saturation ABG Base Excess ABG Hemoglobin ABG Oxyhemoglobin ABG Sodium ABG Potassium ABG Chloride ABG Glucose Oxyhemoglobin Carboxyhemoglobin Sodium Potassium Chloride Carbon Dioxide BUN Creatinine Glucose POC Glucose 233 H 255 H Lactic Acid Calcium Magnesium Ferritin Total Bilirubin Direct Bilirubin AST ALT Alkaline Phosphatase Lactate Dehydrogenase C-Reactive Protein Total Protein Albumin Triglycerides Lipase Arterial Blood Glucose Arterial Blood Ionized Calcium Urine WBC (Auto) Coronavirus (PCR) SARS-CoV-2 IgG Ab Crossmatch 07/02/20 07/02/20 07/02/20 03:51 05:35 11:39 WBC RBC Hgb Hct MCV MCH MCHC RDW Lymph % (Auto) Mathews % (Auto) Lymph # (Auto) Mathews # (Auto) Baso # (Auto) Seg Neutrophils % Seg Neuts % (Manual) Lymphocytes % (Manual) Nucleated RBC % Seg Neutrophils # Seg Neutrophils # Man Lymphocytes # (Manual) Monocytes # (Manual) Eosinophils # (Manual) PT INR APTT D-Dimer Heparin Anti-Xa Level ABG pH POC ABG pCO2 54.9 H POC ABG pO2 52.1 L ABG pO2 ABG HCO3 ABG O2 Saturation ABG Base Excess ABG Hemoglobin 11.9 L ABG Oxyhemoglobin 82.8 L ABG Sodium 130.2 L ABG Potassium ABG Chloride 92.0 L ABG Glucose 249 H Oxyhemoglobin Carboxyhemoglobin 1.9 H Sodium Potassium Chloride Carbon Dioxide BUN Creatinine Glucose POC Glucose 205 H 235 H Lactic Acid Calcium Magnesium Ferritin Total Bilirubin Direct Bilirubin AST ALT Alkaline Phosphatase Lactate Dehydrogenase C-Reactive Protein Total Protein Albumin Triglycerides Lipase Arterial Blood Glucose 249 H Arterial Blood Ionized Calcium Urine WBC (Auto) Coronavirus (PCR) SARS-CoV-2 IgG Ab Crossmatch 07/02/20 07/02/20 07/02/20 16:08 16:08 17:54 WBC 19.8 H RBC 3.28 L Hgb 10.7 L D Hct 32.7 L D MCV 100 H MCH 33 H MCHC RDW 17.2 H Lymph % (Auto) Mathews % (Auto) Lymph # (Auto) Mathews # (Auto) Baso # (Auto) Seg Neutrophils % Seg Neuts % (Manual) Lymphocytes % (Manual) Nucleated RBC % Seg Neutrophils # Seg Neutrophils # Man Lymphocytes # (Manual) Monocytes # (Manual) Eosinophils # (Manual) PT INR APTT D-Dimer Heparin Anti-Xa Level ABG pH POC ABG pCO2 POC ABG pO2 ABG pO2 ABG HCO3 ABG O2 Saturation ABG Base Excess ABG Hemoglobin ABG Oxyhemoglobin ABG Sodium ABG Potassium ABG Chloride ABG Glucose Oxyhemoglobin Carboxyhemoglobin Sodium 136 L Potassium Chloride 92.4 L Carbon Dioxide 35 H BUN Creatinine 0.3 L Glucose 203 H POC Glucose 175 H Lactic Acid Calcium Magnesium Ferritin Total Bilirubin Direct Bilirubin AST ALT Alkaline Phosphatase Lactate Dehydrogenase C-Reactive Protein Total Protein Albumin Triglycerides Lipase Arterial Blood Glucose Arterial Blood Ionized Calcium Urine WBC (Auto) Coronavirus (PCR) SARS-CoV-2 IgG Ab Crossmatch 07/02/20 07/03/20 07/03/20 23:46 03:25 05:54 WBC RBC Hgb Hct MCV MCH MCHC RDW Lymph % (Auto) Mathews % (Auto) Lymph # (Auto) Mathews # (Auto) Baso # (Auto) Seg Neutrophils % Seg Neuts % (Manual) Lymphocytes % (Manual) Nucleated RBC % Seg Neutrophils # Seg Neutrophils # Man Lymphocytes # (Manual) Monocytes # (Manual) Eosinophils # (Manual) PT INR APTT D-Dimer Heparin Anti-Xa Level ABG pH 7.468 H POC ABG pCO2 51.5 H POC ABG pO2 ABG pO2 ABG HCO3 ABG O2 Saturation ABG Base Excess ABG Hemoglobin ABG Oxyhemoglobin ABG Sodium 130.2 L ABG Potassium ABG Chloride 91.0 L ABG Glucose 210 H Oxyhemoglobin Carboxyhemoglobin 1.6 H Sodium Potassium Chloride Carbon Dioxide BUN Creatinine Glucose POC Glucose 173 H 125 H Lactic Acid Calcium Magnesium Ferritin Total Bilirubin Direct Bilirubin AST ALT Alkaline Phosphatase Lactate Dehydrogenase C-Reactive Protein Total Protein Albumin Triglycerides Lipase Arterial Blood Glucose 210 H Arterial Blood Ionized Calcium Urine WBC (Auto) Coronavirus (PCR) SARS-CoV-2 IgG Ab Crossmatch 07/03/20 07/03/20 07/03/20 11:43 12:20 12:20 WBC 16.5 H RBC 3.13 L Hgb 10.4 L Hct 31.8 L MCV 102 H MCH 33 H MCHC RDW 17.2 H Lymph % (Auto) Mathews % (Auto) Lymph # (Auto) Mathews # (Auto) Baso # (Auto) Seg Neutrophils % Seg Neuts % (Manual) Lymphocytes % (Manual) Nucleated RBC % Seg Neutrophils # Seg Neutrophils # Man Lymphocytes # (Manual) Monocytes # (Manual) Eosinophils # (Manual) PT INR APTT D-Dimer Heparin Anti-Xa Level ABG pH POC ABG pCO2 POC ABG pO2 ABG pO2 ABG HCO3 ABG O2 Saturation ABG Base Excess ABG Hemoglobin ABG Oxyhemoglobin ABG Sodium ABG Potassium ABG Chloride ABG Glucose Oxyhemoglobin Carboxyhemoglobin Sodium 132 L Potassium Chloride 88.5 L Carbon Dioxide 37 H BUN Creatinine 0.3 L Glucose 230 H POC Glucose 223 H Lactic Acid Calcium Magnesium Ferritin Total Bilirubin Direct Bilirubin AST ALT Alkaline Phosphatase Lactate Dehydrogenase C-Reactive Protein Total Protein Albumin Triglycerides Lipase Arterial Blood Glucose Arterial Blood Ionized Calcium Urine WBC (Auto) Coronavirus (PCR) SARS-CoV-2 IgG Ab Crossmatch 07/03/20 07/03/20 07/04/20 17:24 21:41 00:54 WBC RBC Hgb Hct MCV MCH MCHC RDW Lymph % (Auto) Mathews % (Auto) Lymph # (Auto) Mathews # (Auto) Baso # (Auto) Seg Neutrophils % Seg Neuts % (Manual) Lymphocytes % (Manual) Nucleated RBC % Seg Neutrophils # Seg Neutrophils # Man Lymphocytes # (Manual) Monocytes # (Manual) Eosinophils # (Manual) PT INR APTT D-Dimer Heparin Anti-Xa Level ABG pH POC ABG pCO2 POC ABG pO2 ABG pO2 ABG HCO3 ABG O2 Saturation ABG Base Excess ABG Hemoglobin ABG Oxyhemoglobin ABG Sodium ABG Potassium ABG Chloride ABG Glucose Oxyhemoglobin Carboxyhemoglobin Sodium Potassium Chloride Carbon Dioxide BUN Creatinine Glucose POC Glucose 163 H 220 H 195 H Lactic Acid Calcium Magnesium Ferritin Total Bilirubin Direct Bilirubin AST ALT Alkaline Phosphatase Lactate Dehydrogenase C-Reactive Protein Total Protein Albumin Triglycerides Lipase Arterial Blood Glucose Arterial Blood Ionized Calcium Urine WBC (Auto) Coronavirus (PCR) SARS-CoV-2 IgG Ab Crossmatch 07/04/20 07/04/20 07/04/20 03:25 04:00 04:00 WBC 14.9 H RBC 2.91 L Hgb 9.5 L Hct 29.2 L MCV 100 H MCH 33 H MCHC RDW 16.7 H Lymph % (Auto) 8.4 L Mathews % (Auto) Lymph # (Auto) Mathews # (Auto) 1.1 H Baso # (Auto) Seg Neutrophils % 84.2 H Seg Neuts % (Manual) Lymphocytes % (Manual) Nucleated RBC % Seg Neutrophils # 12.6 H Seg Neutrophils # Man Lymphocytes # (Manual) Monocytes # (Manual) Eosinophils # (Manual) PT INR APTT D-Dimer Heparin Anti-Xa Level ABG pH 7.474 H POC ABG pCO2 POC ABG pO2 51.8 L ABG pO2 ABG HCO3 ABG O2 Saturation ABG Base Excess ABG Hemoglobin ABG Oxyhemoglobin ABG Sodium ABG Potassium ABG Chloride ABG Glucose Oxyhemoglobin Carboxyhemoglobin Sodium Potassium 3.4 L Chloride 92.1 L Carbon Dioxide 34 H BUN Creatinine 0.3 L Glucose 173 H POC Glucose Lactic Acid Calcium Magnesium Ferritin Total Bilirubin Direct Bilirubin AST ALT Alkaline Phosphatase Lactate Dehydrogenase C-Reactive Protein Total Protein Albumin Triglycerides Lipase Arterial Blood Glucose Arterial Blood Ionized Calcium Urine WBC (Auto) Coronavirus (PCR) SARS-CoV-2 IgG Ab Crossmatch 07/04/20 07/04/20 07/04/20 06:18 11:39 17:18 WBC RBC Hgb Hct MCV MCH MCHC RDW Lymph % (Auto) Mathews % (Auto) Lymph # (Auto) Mathews # (Auto) Baso # (Auto) Seg Neutrophils % Seg Neuts % (Manual) Lymphocytes % (Manual) Nucleated RBC % Seg Neutrophils # Seg Neutrophils # Man Lymphocytes # (Manual) Monocytes # (Manual) Eosinophils # (Manual) PT INR APTT D-Dimer Heparin Anti-Xa Level ABG pH POC ABG pCO2 POC ABG pO2 ABG pO2 ABG HCO3 ABG O2 Saturation ABG Base Excess ABG Hemoglobin ABG Oxyhemoglobin ABG Sodium ABG Potassium ABG Chloride ABG Glucose Oxyhemoglobin Carboxyhemoglobin Sodium Potassium Chloride Carbon Dioxide BUN Creatinine Glucose POC Glucose 158 H 257 H 148 H Lactic Acid Calcium Magnesium Ferritin Total Bilirubin Direct Bilirubin AST ALT Alkaline Phosphatase Lactate Dehydrogenase C-Reactive Protein Total Protein Albumin Triglycerides Lipase Arterial Blood Glucose Arterial Blood Ionized Calcium Urine WBC (Auto) Coronavirus (PCR) SARS-CoV-2 IgG Ab Crossmatch 07/04/20 07/05/20 07/05/20 23:23 03:13 05:18 WBC 13.3 H RBC 2.90 L Hgb 9.8 L Hct 29.3 L MCV 101 H MCH 34 H MCHC RDW 17.0 H Lymph % (Auto) 11.1 L Mathews % (Auto) Lymph # (Auto) Mathews # (Auto) Baso # (Auto) Seg Neutrophils % 82.3 H Seg Neuts % (Manual) Lymphocytes % (Manual) Nucleated RBC % Seg Neutrophils # 10.9 H Seg Neutrophils # Man Lymphocytes # (Manual) Monocytes # (Manual) Eosinophils # (Manual) PT INR APTT D-Dimer Heparin Anti-Xa Level ABG pH 7.48 H POC ABG pCO2 52.0 H POC ABG pO2 ABG pO2 ABG HCO3 ABG O2 Saturation ABG Base Excess ABG Hemoglobin 10.0 L ABG Oxyhemoglobin ABG Sodium 131.0 L ABG Potassium 3.3 L ABG Chloride 93.0 L ABG Glucose 177 H Oxyhemoglobin Carboxyhemoglobin Sodium Potassium Chloride Carbon Dioxide BUN Creatinine Glucose POC Glucose 227 H Lactic Acid Calcium Magnesium Ferritin Total Bilirubin Direct Bilirubin AST ALT Alkaline Phosphatase Lactate Dehydrogenase C-Reactive Protein Total Protein Albumin Triglycerides Lipase Arterial Blood Glucose 177 H Arterial Blood Ionized Calcium Urine WBC (Auto) Coronavirus (PCR) SARS-CoV-2 IgG Ab Crossmatch 07/05/20 07/05/20 07/05/20 05:18 05:25 05:57 WBC RBC Hgb Hct MCV MCH MCHC RDW Lymph % (Auto) Mathews % (Auto) Lymph # (Auto) Mathews # (Auto) Baso # (Auto) Seg Neutrophils % Seg Neuts % (Manual) Lymphocytes % (Manual) Nucleated RBC % Seg Neutrophils # Seg Neutrophils # Man Lymphocytes # (Manual) Monocytes # (Manual) Eosinophils # (Manual) PT INR APTT D-Dimer Heparin Anti-Xa Level ABG pH 7.519 H POC ABG pCO2 POC ABG pO2 198.6 H ABG pO2 ABG HCO3 ABG O2 Saturation ABG Base Excess ABG Hemoglobin 10.3 L ABG Oxyhemoglobin 98.7 H ABG Sodium 133.6 L ABG Potassium 3.3 L ABG Chloride 93.0 L ABG Glucose 175 H Oxyhemoglobin Carboxyhemoglobin Sodium Potassium 3.4 L Chloride 92.5 L Carbon Dioxide 36 H BUN Creatinine 0.3 L Glucose 148 H POC Glucose 170 H Lactic Acid Calcium Magnesium Ferritin Total Bilirubin Direct Bilirubin AST ALT Alkaline Phosphatase Lactate Dehydrogenase C-Reactive Protein Total Protein Albumin Triglycerides Lipase Arterial Blood Glucose 175 H Arterial Blood Ionized Calcium Urine WBC (Auto) Coronavirus (PCR) SARS-CoV-2 IgG Ab Crossmatch 07/05/20 07/05/20 07/06/20 11:37 18:39 00:04 WBC RBC Hgb Hct MCV MCH MCHC RDW Lymph % (Auto) Mathews % (Auto) Lymph # (Auto) Mathews # (Auto) Baso # (Auto) Seg Neutrophils % Seg Neuts % (Manual) Lymphocytes % (Manual) Nucleated RBC % Seg Neutrophils # Seg Neutrophils # Man Lymphocytes # (Manual) Monocytes # (Manual) Eosinophils # (Manual) PT INR APTT D-Dimer Heparin Anti-Xa Level ABG pH POC ABG pCO2 POC ABG pO2 ABG pO2 ABG HCO3 ABG O2 Saturation ABG Base Excess ABG Hemoglobin ABG Oxyhemoglobin ABG Sodium ABG Potassium ABG Chloride ABG Glucose Oxyhemoglobin Carboxyhemoglobin Sodium Potassium Chloride Carbon Dioxide BUN Creatinine Glucose POC Glucose 195 H 200 H 222 H Lactic Acid Calcium Magnesium Ferritin Total Bilirubin Direct Bilirubin AST ALT Alkaline Phosphatase Lactate Dehydrogenase C-Reactive Protein Total Protein Albumin Triglycerides Lipase Arterial Blood Glucose Arterial Blood Ionized Calcium Urine WBC (Auto) Coronavirus (PCR) SARS-CoV-2 IgG Ab Crossmatch 07/06/20 07/06/20 07/06/20 05:25 06:52 06:52 WBC 15.8 H RBC 3.17 L Hgb 10.4 L Hct 31.5 L MCV 99 H MCH 33 H MCHC RDW 17.0 H Lymph % (Auto) Mathews % (Auto) Lymph # (Auto) Mathews # (Auto) Baso # (Auto) Seg Neutrophils % Seg Neuts % (Manual) Lymphocytes % (Manual) Nucleated RBC % Seg Neutrophils # Seg Neutrophils # Man Lymphocytes # (Manual) Monocytes # (Manual) Eosinophils # (Manual) PT INR APTT D-Dimer Heparin Anti-Xa Level ABG pH POC ABG pCO2 POC ABG pO2 ABG pO2 ABG HCO3 ABG O2 Saturation ABG Base Excess ABG Hemoglobin ABG Oxyhemoglobin ABG Sodium ABG Potassium ABG Chloride ABG Glucose Oxyhemoglobin Carboxyhemoglobin Sodium 135 L Potassium 3.4 L Chloride 91.9 L Carbon Dioxide 38 H BUN Creatinine 0.3 L Glucose 189 H POC Glucose 165 H Lactic Acid Calcium Magnesium Ferritin Total Bilirubin Direct Bilirubin AST ALT Alkaline Phosphatase Lactate Dehydrogenase C-Reactive Protein Total Protein Albumin Triglycerides Lipase Arterial Blood Glucose Arterial Blood Ionized Calcium Urine WBC (Auto) Coronavirus (PCR) SARS-CoV-2 IgG Ab Crossmatch 07/06/20 07/06/20 07/06/20 13:01 18:04 23:08 WBC RBC Hgb Hct MCV MCH MCHC RDW Lymph % (Auto) Mathews % (Auto) Lymph # (Auto) Mathews # (Auto) Baso # (Auto) Seg Neutrophils % Seg Neuts % (Manual) Lymphocytes % (Manual) Nucleated RBC % Seg Neutrophils # Seg Neutrophils # Man Lymphocytes # (Manual) Monocytes # (Manual) Eosinophils # (Manual) PT INR APTT D-Dimer Heparin Anti-Xa Level ABG pH POC ABG pCO2 POC ABG pO2 ABG pO2 ABG HCO3 ABG O2 Saturation ABG Base Excess ABG Hemoglobin ABG Oxyhemoglobin ABG Sodium ABG Potassium ABG Chloride ABG Glucose Oxyhemoglobin Carboxyhemoglobin Sodium Potassium Chloride Carbon Dioxide BUN Creatinine Glucose POC Glucose 195 H 169 H 173 H Lactic Acid Calcium Magnesium Ferritin Total Bilirubin Direct Bilirubin AST ALT Alkaline Phosphatase Lactate Dehydrogenase C-Reactive Protein Total Protein Albumin Triglycerides Lipase Arterial Blood Glucose Arterial Blood Ionized Calcium Urine WBC (Auto) Coronavirus (PCR) SARS-CoV-2 IgG Ab Crossmatch 07/07/20 07/07/20 07/07/20 05:35 05:35 05:39 WBC 17.6 H RBC 3.16 L Hgb 10.4 L Hct 31.5 L MCV 100 H MCH 33 H MCHC RDW 16.7 H Lymph % (Auto) 11.1 L Mathews % (Auto) Lymph # (Auto) Mathews # (Auto) 1.0 H Baso # (Auto) Seg Neutrophils % 83.0 H Seg Neuts % (Manual) Lymphocytes % (Manual) Nucleated RBC % Seg Neutrophils # 14.6 H Seg Neutrophils # Man Lymphocytes # (Manual) Monocytes # (Manual) Eosinophils # (Manual) PT INR APTT D-Dimer Heparin Anti-Xa Level ABG pH POC ABG pCO2 POC ABG pO2 ABG pO2 ABG HCO3 ABG O2 Saturation ABG Base Excess ABG Hemoglobin ABG Oxyhemoglobin ABG Sodium ABG Potassium ABG Chloride ABG Glucose Oxyhemoglobin Carboxyhemoglobin Sodium 135 L Potassium 3.4 L Chloride 94.3 L Carbon Dioxide 32 H BUN Creatinine 0.2 L Glucose 240 H POC Glucose 191 H Lactic Acid Calcium Magnesium Ferritin Total Bilirubin Direct Bilirubin AST ALT Alkaline Phosphatase Lactate Dehydrogenase C-Reactive Protein Total Protein Albumin Triglycerides Lipase Arterial Blood Glucose Arterial Blood Ionized Calcium Urine WBC (Auto) Coronavirus (PCR) SARS-CoV-2 IgG Ab Crossmatch 07/07/20 07/07/20 07/07/20 12:08 16:39 23:41 WBC RBC Hgb Hct MCV MCH MCHC RDW Lymph % (Auto) Mathews % (Auto) Lymph # (Auto) Mathews # (Auto) Baso # (Auto) Seg Neutrophils % Seg Neuts % (Manual) Lymphocytes % (Manual) Nucleated RBC % Seg Neutrophils # Seg Neutrophils # Man Lymphocytes # (Manual) Monocytes # (Manual) Eosinophils # (Manual) PT INR APTT D-Dimer Heparin Anti-Xa Level ABG pH POC ABG pCO2 POC ABG pO2 ABG pO2 ABG HCO3 ABG O2 Saturation ABG Base Excess ABG Hemoglobin ABG Oxyhemoglobin ABG Sodium ABG Potassium ABG Chloride ABG Glucose Oxyhemoglobin Carboxyhemoglobin Sodium Potassium Chloride Carbon Dioxide BUN Creatinine Glucose POC Glucose 248 H 209 H 231 H Lactic Acid Calcium Magnesium Ferritin Total Bilirubin Direct Bilirubin AST ALT Alkaline Phosphatase Lactate Dehydrogenase C-Reactive Protein Total Protein Albumin Triglycerides Lipase Arterial Blood Glucose Arterial Blood Ionized Calcium Urine WBC (Auto) Coronavirus (PCR) SARS-CoV-2 IgG Ab Crossmatch 07/08/20 07/08/20 07/08/20 04:58 04:58 05:38 WBC 21.0 H RBC 2.86 L Hgb 9.2 L Hct 28.6 L MCV 100 H MCH MCHC RDW 16.7 H Lymph % (Auto) Mathews % (Auto) Lymph # (Auto) Mathews # (Auto) Baso # (Auto) Seg Neutrophils % Seg Neuts % (Manual) 93.0 H Lymphocytes % (Manual) 3.0 L Nucleated RBC % Seg Neutrophils # Seg Neutrophils # Man 19.5 H Lymphocytes # (Manual) 0.6 L Monocytes # (Manual) Eosinophils # (Manual) PT INR APTT D-Dimer Heparin Anti-Xa Level ABG pH POC ABG pCO2 POC ABG pO2 ABG pO2 ABG HCO3 ABG O2 Saturation ABG Base Excess ABG Hemoglobin ABG Oxyhemoglobin ABG Sodium ABG Potassium ABG Chloride ABG Glucose Oxyhemoglobin Carboxyhemoglobin Sodium Potassium 3.0 L Chloride Carbon Dioxide BUN Creatinine 0.2 L Glucose 201 H POC Glucose 161 H Lactic Acid Calcium 7.9 L D Magnesium Ferritin Total Bilirubin Direct Bilirubin AST ALT Alkaline Phosphatase Lactate Dehydrogenase C-Reactive Protein Total Protein Albumin Triglycerides Lipase Arterial Blood Glucose Arterial Blood Ionized Calcium Urine WBC (Auto) Coronavirus (PCR) SARS-CoV-2 IgG Ab Crossmatch 07/08/20 07/08/20 07/08/20 12:19 16:26 Unknown WBC RBC Hgb Hct MCV MCH MCHC RDW Lymph % (Auto) Mathews % (Auto) Lymph # (Auto) Mathews # (Auto) Baso # (Auto) Seg Neutrophils % Seg Neuts % (Manual) Lymphocytes % (Manual) Nucleated RBC % Seg Neutrophils # Seg Neutrophils # Man Lymphocytes # (Manual) Monocytes # (Manual) Eosinophils # (Manual) PT INR APTT D-Dimer Heparin Anti-Xa Level ABG pH POC ABG pCO2 POC ABG pO2 ABG pO2 75.3 L ABG HCO3 34.3 H ABG O2 Saturation ABG Base Excess 8.7 H ABG Hemoglobin 10.2 L ABG Oxyhemoglobin ABG Sodium ABG Potassium ABG Chloride ABG Glucose Oxyhemoglobin 93.7 L Carboxyhemoglobin Sodium Potassium Chloride Carbon Dioxide BUN Creatinine Glucose POC Glucose 152 H 173 H Lactic Acid Calcium Magnesium Ferritin Total Bilirubin Direct Bilirubin AST ALT Alkaline Phosphatase Lactate Dehydrogenase C-Reactive Protein Total Protein Albumin Triglycerides Lipase Arterial Blood Glucose Arterial Blood Ionized Calcium Urine WBC (Auto) Coronavirus (PCR) SARS-CoV-2 IgG Ab Crossmatch 07/09/20 07/09/20 07/09/20 00:01 06:00 11:55 WBC RBC Hgb Hct MCV MCH MCHC RDW Lymph % (Auto) Mathews % (Auto) Lymph # (Auto) Mathews # (Auto) Baso # (Auto) Seg Neutrophils % Seg Neuts % (Manual) Lymphocytes % (Manual) Nucleated RBC % Seg Neutrophils # Seg Neutrophils # Man Lymphocytes # (Manual) Monocytes # (Manual) Eosinophils # (Manual) PT INR APTT D-Dimer Heparin Anti-Xa Level ABG pH POC ABG pCO2 POC ABG pO2 ABG pO2 ABG HCO3 ABG O2 Saturation ABG Base Excess ABG Hemoglobin ABG Oxyhemoglobin ABG Sodium ABG Potassium ABG Chloride ABG Glucose Oxyhemoglobin Carboxyhemoglobin Sodium Potassium Chloride Carbon Dioxide BUN Creatinine Glucose POC Glucose 207 H 141 H 228 H Lactic Acid Calcium Magnesium Ferritin Total Bilirubin Direct Bilirubin AST ALT Alkaline Phosphatase Lactate Dehydrogenase C-Reactive Protein Total Protein Albumin Triglycerides Lipase Arterial Blood Glucose Arterial Blood Ionized Calcium Urine WBC (Auto) Coronavirus (PCR) SARS-CoV-2 IgG Ab Crossmatch 07/09/20 07/09/20 07/09/20 16:47 23:53 Unknown WBC RBC Hgb Hct MCV MCH MCHC RDW Lymph % (Auto) Mathews % (Auto) Lymph # (Auto) Mathews # (Auto) Baso # (Auto) Seg Neutrophils % Seg Neuts % (Manual) Lymphocytes % (Manual) Nucleated RBC % Seg Neutrophils # Seg Neutrophils # Man Lymphocytes # (Manual) Monocytes # (Manual) Eosinophils # (Manual) PT INR APTT D-Dimer Heparin Anti-Xa Level ABG pH POC ABG pCO2 POC ABG pO2 ABG pO2 ABG HCO3 ABG O2 Saturation ABG Base Excess ABG Hemoglobin ABG Oxyhemoglobin ABG Sodium ABG Potassium ABG Chloride ABG Glucose Oxyhemoglobin Carboxyhemoglobin Sodium 132 L Potassium Chloride 92.7 L Carbon Dioxide 35 H BUN Creatinine 0.2 L Glucose 234 H POC Glucose 136 H 219 H Lactic Acid Calcium Magnesium Ferritin Total Bilirubin Direct Bilirubin AST ALT Alkaline Phosphatase Lactate Dehydrogenase C-Reactive Protein Total Protein Albumin Triglycerides Lipase Arterial Blood Glucose Arterial Blood Ionized Calcium Urine WBC (Auto) Coronavirus (PCR) SARS-CoV-2 IgG Ab Crossmatch 07/10/20 07/10/20 07/10/20 05:20 12:05 18:38 WBC RBC Hgb Hct MCV MCH MCHC RDW Lymph % (Auto) Mathews % (Auto) Lymph # (Auto) Mathews # (Auto) Baso # (Auto) Seg Neutrophils % Seg Neuts % (Manual) Lymphocytes % (Manual) Nucleated RBC % Seg Neutrophils # Seg Neutrophils # Man Lymphocytes # (Manual) Monocytes # (Manual) Eosinophils # (Manual) PT INR APTT D-Dimer Heparin Anti-Xa Level ABG pH POC ABG pCO2 POC ABG pO2 ABG pO2 ABG HCO3 ABG O2 Saturation ABG Base Excess ABG Hemoglobin ABG Oxyhemoglobin ABG Sodium ABG Potassium ABG Chloride ABG Glucose Oxyhemoglobin Carboxyhemoglobin Sodium Potassium Chloride Carbon Dioxide BUN Creatinine Glucose POC Glucose 221 H 174 H 152 H Lactic Acid Calcium Magnesium Ferritin Total Bilirubin Direct Bilirubin AST ALT Alkaline Phosphatase Lactate Dehydrogenase C-Reactive Protein Total Protein Albumin Triglycerides Lipase Arterial Blood Glucose Arterial Blood Ionized Calcium Urine WBC (Auto) Coronavirus (PCR) SARS-CoV-2 IgG Ab Crossmatch 07/11/20 07/11/20 07/11/20 00:16 05:42 08:13 WBC 11.9 H RBC 3.13 L Hgb 10.2 L Hct 31.2 L MCV 100 H MCH 33 H MCHC RDW 16.4 H Lymph % (Auto) Mathews % (Auto) 9.3 H Lymph # (Auto) Mathews # (Auto) 1.1 H Baso # (Auto) Seg Neutrophils % 72.7 H Seg Neuts % (Manual) Lymphocytes % (Manual) Nucleated RBC % Seg Neutrophils # 8.7 H Seg Neutrophils # Man Lymphocytes # (Manual) Monocytes # (Manual) Eosinophils # (Manual) PT INR APTT D-Dimer Heparin Anti-Xa Level ABG pH POC ABG pCO2 POC ABG pO2 ABG pO2 ABG HCO3 ABG O2 Saturation ABG Base Excess ABG Hemoglobin ABG Oxyhemoglobin ABG Sodium ABG Potassium ABG Chloride ABG Glucose Oxyhemoglobin Carboxyhemoglobin Sodium Potassium Chloride Carbon Dioxide BUN Creatinine Glucose POC Glucose 170 H 186 H Lactic Acid Calcium Magnesium Ferritin Total Bilirubin Direct Bilirubin AST ALT Alkaline Phosphatase Lactate Dehydrogenase C-Reactive Protein Total Protein Albumin Triglycerides Lipase Arterial Blood Glucose Arterial Blood Ionized Calcium Urine WBC (Auto) Coronavirus (PCR) SARS-CoV-2 IgG Ab Crossmatch 07/11/20 07/11/20 07/11/20 08:13 11:35 18:07 WBC RBC Hgb Hct MCV MCH MCHC RDW Lymph % (Auto) Mathews % (Auto) Lymph # (Auto) Mathews # (Auto) Baso # (Auto) Seg Neutrophils % Seg Neuts % (Manual) Lymphocytes % (Manual) Nucleated RBC % Seg Neutrophils # Seg Neutrophils # Man Lymphocytes # (Manual) Monocytes # (Manual) Eosinophils # (Manual) PT INR APTT D-Dimer Heparin Anti-Xa Level ABG pH POC ABG pCO2 POC ABG pO2 ABG pO2 ABG HCO3 ABG O2 Saturation ABG Base Excess ABG Hemoglobin ABG Oxyhemoglobin ABG Sodium ABG Potassium ABG Chloride ABG Glucose Oxyhemoglobin Carboxyhemoglobin Sodium 135 L Potassium Chloride 92.8 L Carbon Dioxide 38 H BUN Creatinine 0.2 L Glucose 132 H POC Glucose 129 H 156 H Lactic Acid Calcium Magnesium Ferritin Total Bilirubin Direct Bilirubin AST ALT Alkaline Phosphatase Lactate Dehydrogenase C-Reactive Protein Total Protein Albumin Triglycerides Lipase Arterial Blood Glucose Arterial Blood Ionized Calcium Urine WBC (Auto) Coronavirus (PCR) SARS-CoV-2 IgG Ab Crossmatch 07/11/20 07/11/20 07/12/20 18:36 23:18 05:28 WBC RBC Hgb Hct MCV MCH MCHC RDW Lymph % (Auto) Mathews % (Auto) Lymph # (Auto) Mathews # (Auto) Baso # (Auto) Seg Neutrophils % Seg Neuts % (Manual) Lymphocytes % (Manual) Nucleated RBC % Seg Neutrophils # Seg Neutrophils # Man Lymphocytes # (Manual) Monocytes # (Manual) Eosinophils # (Manual) PT INR APTT D-Dimer Heparin Anti-Xa Level ABG pH POC ABG pCO2 POC ABG pO2 70.9 L ABG pO2 ABG HCO3 ABG O2 Saturation ABG Base Excess ABG Hemoglobin 10.8 L ABG Oxyhemoglobin 92.5 L ABG Sodium 131.8 L ABG Potassium 3.2 L ABG Chloride 91.0 L ABG Glucose 181 H Oxyhemoglobin Carboxyhemoglobin Sodium Potassium Chloride Carbon Dioxide BUN Creatinine Glucose POC Glucose 189 H 190 H Lactic Acid Calcium Magnesium Ferritin Total Bilirubin Direct Bilirubin AST ALT Alkaline Phosphatase Lactate Dehydrogenase C-Reactive Protein Total Protein Albumin Triglycerides Lipase Arterial Blood Glucose 181 H Arterial Blood Ionized Calcium Urine WBC (Auto) Coronavirus (PCR) SARS-CoV-2 IgG Ab Crossmatch 07/12/20 07/12/20 07/12/20 11:33 17:45 23:59 WBC RBC Hgb Hct MCV MCH MCHC RDW Lymph % (Auto) Mathews % (Auto) Lymph # (Auto) Mathews # (Auto) Baso # (Auto) Seg Neutrophils % Seg Neuts % (Manual) Lymphocytes % (Manual) Nucleated RBC % Seg Neutrophils # Seg Neutrophils # Man Lymphocytes # (Manual) Monocytes # (Manual) Eosinophils # (Manual) PT INR APTT D-Dimer Heparin Anti-Xa Level ABG pH POC ABG pCO2 POC ABG pO2 ABG pO2 ABG HCO3 ABG O2 Saturation ABG Base Excess ABG Hemoglobin ABG Oxyhemoglobin ABG Sodium ABG Potassium ABG Chloride ABG Glucose Oxyhemoglobin Carboxyhemoglobin Sodium Potassium Chloride Carbon Dioxide BUN Creatinine Glucose POC Glucose 151 H 211 H 169 H Lactic Acid Calcium Magnesium Ferritin Total Bilirubin Direct Bilirubin AST ALT Alkaline Phosphatase Lactate Dehydrogenase C-Reactive Protein Total Protein Albumin Triglycerides Lipase Arterial Blood Glucose Arterial Blood Ionized Calcium Urine WBC (Auto) Coronavirus (PCR) SARS-CoV-2 IgG Ab Crossmatch 07/13/20 07/13/20 07/13/20 05:44 08:31 08:31 WBC 21.3 H RBC 2.92 L Hgb 9.7 L Hct 28.7 L MCV 98 H MCH 33 H MCHC RDW 16.8 H Lymph % (Auto) Mathews % (Auto) Lymph # (Auto) Mathews # (Auto) Baso # (Auto) Seg Neutrophils % Seg Neuts % (Manual) 96.0 H Lymphocytes % (Manual) 2.0 L Nucleated RBC % Seg Neutrophils # Seg Neutrophils # Man 20.4 H Lymphocytes # (Manual) 0.4 L Monocytes # (Manual) Eosinophils # (Manual) PT INR APTT D-Dimer Heparin Anti-Xa Level ABG pH POC ABG pCO2 POC ABG pO2 ABG pO2 ABG HCO3 ABG O2 Saturation ABG Base Excess ABG Hemoglobin ABG Oxyhemoglobin ABG Sodium ABG Potassium ABG Chloride ABG Glucose Oxyhemoglobin Carboxyhemoglobin Sodium Potassium 2.9 L* D Chloride 94.4 L Carbon Dioxide 37 H BUN Creatinine 0.2 L Glucose 166 H POC Glucose 122 H Lactic Acid Calcium Magnesium Ferritin Total Bilirubin Direct Bilirubin AST ALT Alkaline Phosphatase Lactate Dehydrogenase C-Reactive Protein Total Protein Albumin Triglycerides Lipase Arterial Blood Glucose Arterial Blood Ionized Calcium Urine WBC (Auto) Coronavirus (PCR) SARS-CoV-2 IgG Ab Crossmatch 07/13/20 07/13/20 07/13/20 11:54 13:52 17:40 WBC RBC Hgb Hct MCV MCH MCHC RDW Lymph % (Auto) Mathews % (Auto) Lymph # (Auto) Mathews # (Auto) Baso # (Auto) Seg Neutrophils % Seg Neuts % (Manual) Lymphocytes % (Manual) Nucleated RBC % Seg Neutrophils # Seg Neutrophils # Man Lymphocytes # (Manual) Monocytes # (Manual) Eosinophils # (Manual) PT INR APTT D-Dimer Heparin Anti-Xa Level ABG pH 7.477 H POC ABG pCO2 54.4 H POC ABG pO2 126.8 H ABG pO2 ABG HCO3 ABG O2 Saturation ABG Base Excess ABG Hemoglobin 11.5 L ABG Oxyhemoglobin ABG Sodium ABG Potassium 3.2 L ABG Chloride 92.0 L ABG Glucose 169 H Oxyhemoglobin Carboxyhemoglobin Sodium Potassium Chloride Carbon Dioxide BUN Creatinine Glucose POC Glucose 132 H 128 H Lactic Acid Calcium Magnesium Ferritin Total Bilirubin Direct Bilirubin AST ALT Alkaline Phosphatase Lactate Dehydrogenase C-Reactive Protein Total Protein Albumin Triglycerides Lipase Arterial Blood Glucose 169 H Arterial Blood Ionized Calcium Urine WBC (Auto) Coronavirus (PCR) SARS-CoV-2 IgG Ab Crossmatch 07/14/20 07/14/20 07/15/20 07:49 17:09 05:27 WBC RBC Hgb Hct MCV MCH MCHC RDW Lymph % (Auto) Mathews % (Auto) Lymph # (Auto) Mathews # (Auto) Baso # (Auto) Seg Neutrophils % Seg Neuts % (Manual) Lymphocytes % (Manual) Nucleated RBC % Seg Neutrophils # Seg Neutrophils # Man Lymphocytes # (Manual) Monocytes # (Manual) Eosinophils # (Manual) PT INR APTT D-Dimer Heparin Anti-Xa Level ABG pH POC ABG pCO2 POC ABG pO2 ABG pO2 ABG HCO3 ABG O2 Saturation ABG Base Excess ABG Hemoglobin ABG Oxyhemoglobin ABG Sodium ABG Potassium ABG Chloride ABG Glucose Oxyhemoglobin Carboxyhemoglobin Sodium Potassium 2.7 L* Chloride 94.0 L Carbon Dioxide 37 H BUN Creatinine 0.3 L Glucose 110 H POC Glucose 152 H 61 L Lactic Acid Calcium Magnesium Ferritin Total Bilirubin Direct Bilirubin AST ALT Alkaline Phosphatase Lactate Dehydrogenase C-Reactive Protein Total Protein Albumin Triglycerides Lipase Arterial Blood Glucose Arterial Blood Ionized Calcium Urine WBC (Auto) Coronavirus (PCR) SARS-CoV-2 IgG Ab Crossmatch 07/15/20 07/15/20 07/15/20 05:31 11:49 17:18 WBC RBC Hgb Hct MCV MCH MCHC RDW Lymph % (Auto) Mathews % (Auto) Lymph # (Auto) Mathews # (Auto) Baso # (Auto) Seg Neutrophils % Seg Neuts % (Manual) Lymphocytes % (Manual) Nucleated RBC % Seg Neutrophils # Seg Neutrophils # Man Lymphocytes # (Manual) Monocytes # (Manual) Eosinophils # (Manual) PT INR APTT D-Dimer Heparin Anti-Xa Level ABG pH POC ABG pCO2 POC ABG pO2 ABG pO2 ABG HCO3 ABG O2 Saturation ABG Base Excess ABG Hemoglobin ABG Oxyhemoglobin ABG Sodium ABG Potassium ABG Chloride ABG Glucose Oxyhemoglobin Carboxyhemoglobin Sodium Potassium 3.2 L Chloride 91.2 L Carbon Dioxide 33 H BUN Creatinine 0.3 L Glucose 139 H POC Glucose 148 H 196 H Lactic Acid Calcium Magnesium Ferritin Total Bilirubin Direct Bilirubin AST ALT Alkaline Phosphatase Lactate Dehydrogenase C-Reactive Protein Total Protein Albumin Triglycerides Lipase Arterial Blood Glucose Arterial Blood Ionized Calcium Urine WBC (Auto) Coronavirus (PCR) SARS-CoV-2 IgG Ab Crossmatch 07/15/20 07/16/20 07/16/20 23:08 05:18 05:19 WBC 11.3 H RBC 3.10 L Hgb 10.0 L Hct 30.3 L MCV 98 H MCH MCHC RDW 16.3 H Lymph % (Auto) Mathews % (Auto) Lymph # (Auto) Mathews # (Auto) Baso # (Auto) Seg Neutrophils % Seg Neuts % (Manual) Lymphocytes % (Manual) Nucleated RBC % Seg Neutrophils # Seg Neutrophils # Man Lymphocytes # (Manual) Monocytes # (Manual) Eosinophils # (Manual) PT INR APTT D-Dimer Heparin Anti-Xa Level ABG pH POC ABG pCO2 POC ABG pO2 ABG pO2 ABG HCO3 ABG O2 Saturation ABG Base Excess ABG Hemoglobin ABG Oxyhemoglobin ABG Sodium ABG Potassium ABG Chloride ABG Glucose Oxyhemoglobin Carboxyhemoglobin Sodium Potassium Chloride Carbon Dioxide BUN Creatinine Glucose POC Glucose 131 H 160 H Lactic Acid Calcium Magnesium Ferritin Total Bilirubin Direct Bilirubin AST ALT Alkaline Phosphatase Lactate Dehydrogenase C-Reactive Protein Total Protein Albumin Triglycerides Lipase Arterial Blood Glucose Arterial Blood Ionized Calcium Urine WBC (Auto) Coronavirus (PCR) SARS-CoV-2 IgG Ab Crossmatch 07/16/20 07/16/20 07/16/20 05:19 11:45 17:17 WBC RBC Hgb Hct MCV MCH MCHC RDW Lymph % (Auto) Mathews % (Auto) Lymph # (Auto) Mathews # (Auto) Baso # (Auto) Seg Neutrophils % Seg Neuts % (Manual) Lymphocytes % (Manual) Nucleated RBC % Seg Neutrophils # Seg Neutrophils # Man Lymphocytes # (Manual) Monocytes # (Manual) Eosinophils # (Manual) PT INR APTT D-Dimer Heparin Anti-Xa Level ABG pH POC ABG pCO2 POC ABG pO2 ABG pO2 ABG HCO3 ABG O2 Saturation ABG Base Excess ABG Hemoglobin ABG Oxyhemoglobin ABG Sodium ABG Potassium ABG Chloride ABG Glucose Oxyhemoglobin Carboxyhemoglobin Sodium 132 L Potassium 3.4 L Chloride 89.9 L Carbon Dioxide 39 H BUN Creatinine 0.3 L Glucose 174 H POC Glucose 169 H 143 H Lactic Acid Calcium Magnesium Ferritin Total Bilirubin Direct Bilirubin AST ALT Alkaline Phosphatase Lactate Dehydrogenase C-Reactive Protein Total Protein Albumin Triglycerides Lipase Arterial Blood Glucose Arterial Blood Ionized Calcium Urine WBC (Auto) Coronavirus (PCR) SARS-CoV-2 IgG Ab Crossmatch 07/16/20 07/17/20 07/17/20 23:54 05:32 11:26 WBC RBC Hgb Hct MCV MCH MCHC RDW Lymph % (Auto) Mathews % (Auto) Lymph # (Auto) Mathews # (Auto) Baso # (Auto) Seg Neutrophils % Seg Neuts % (Manual) Lymphocytes % (Manual) Nucleated RBC % Seg Neutrophils # Seg Neutrophils # Man Lymphocytes # (Manual) Monocytes # (Manual) Eosinophils # (Manual) PT INR APTT D-Dimer Heparin Anti-Xa Level ABG pH POC ABG pCO2 POC ABG pO2 ABG pO2 ABG HCO3 ABG O2 Saturation ABG Base Excess ABG Hemoglobin ABG Oxyhemoglobin ABG Sodium ABG Potassium ABG Chloride ABG Glucose Oxyhemoglobin Carboxyhemoglobin Sodium Potassium Chloride Carbon Dioxide BUN Creatinine Glucose POC Glucose 147 H 149 H 211 H Lactic Acid Calcium Magnesium Ferritin Total Bilirubin Direct Bilirubin AST ALT Alkaline Phosphatase Lactate Dehydrogenase C-Reactive Protein Total Protein Albumin Triglycerides Lipase Arterial Blood Glucose Arterial Blood Ionized Calcium Urine WBC (Auto) Coronavirus (PCR) SARS-CoV-2 IgG Ab Crossmatch 07/17/20 07/17/20 07/18/20 18:16 23:12 06:15 WBC RBC Hgb Hct MCV MCH MCHC RDW Lymph % (Auto) Mathews % (Auto) Lymph # (Auto) Mathews # (Auto) Baso # (Auto) Seg Neutrophils % Seg Neuts % (Manual) Lymphocytes % (Manual) Nucleated RBC % Seg Neutrophils # Seg Neutrophils # Man Lymphocytes # (Manual) Monocytes # (Manual) Eosinophils # (Manual) PT INR APTT D-Dimer Heparin Anti-Xa Level ABG pH POC ABG pCO2 POC ABG pO2 ABG pO2 ABG HCO3 ABG O2 Saturation ABG Base Excess ABG Hemoglobin ABG Oxyhemoglobin ABG Sodium ABG Potassium ABG Chloride ABG Glucose Oxyhemoglobin Carboxyhemoglobin Sodium Potassium Chloride Carbon Dioxide BUN Creatinine Glucose POC Glucose 161 H 136 H 108 H Lactic Acid Calcium Magnesium Ferritin Total Bilirubin Direct Bilirubin AST ALT Alkaline Phosphatase Lactate Dehydrogenase C-Reactive Protein Total Protein Albumin Triglycerides Lipase Arterial Blood Glucose Arterial Blood Ionized Calcium Urine WBC (Auto) Coronavirus (PCR) SARS-CoV-2 IgG Ab Crossmatch 07/18/20 07/18/20 07/18/20 08:47 08:47 11:50 WBC 17.7 H RBC 3.29 L Hgb 10.5 L Hct 31.8 L MCV 97 H MCH MCHC RDW 16.9 H Lymph % (Auto) Mathews % (Auto) 8.6 H Lymph # (Auto) Mathews # (Auto) 1.5 H Baso # (Auto) Seg Neutrophils % 74.6 H Seg Neuts % (Manual) Lymphocytes % (Manual) Nucleated RBC % Seg Neutrophils # 13.2 H Seg Neutrophils # Man Lymphocytes # (Manual) Monocytes # (Manual) Eosinophils # (Manual) PT INR APTT D-Dimer Heparin Anti-Xa Level ABG pH POC ABG pCO2 POC ABG pO2 ABG pO2 ABG HCO3 ABG O2 Saturation ABG Base Excess ABG Hemoglobin ABG Oxyhemoglobin ABG Sodium ABG Potassium ABG Chloride ABG Glucose Oxyhemoglobin Carboxyhemoglobin Sodium Potassium 2.8 L* Chloride 92.6 L Carbon Dioxide 40 H BUN Creatinine 0.3 L Glucose 177 H POC Glucose 178 H Lactic Acid Calcium Magnesium Ferritin Total Bilirubin Direct Bilirubin AST ALT Alkaline Phosphatase Lactate Dehydrogenase C-Reactive Protein Total Protein Albumin Triglycerides Lipase Arterial Blood Glucose Arterial Blood Ionized Calcium Urine WBC (Auto) Coronavirus (PCR) SARS-CoV-2 IgG Ab Crossmatch 07/18/20 07/18/20 07/19/20 17:18 23:33 05:22 WBC RBC Hgb Hct MCV MCH MCHC RDW Lymph % (Auto) Mathews % (Auto) Lymph # (Auto) Mathews # (Auto) Baso # (Auto) Seg Neutrophils % Seg Neuts % (Manual) Lymphocytes % (Manual) Nucleated RBC % Seg Neutrophils # Seg Neutrophils # Man Lymphocytes # (Manual) Monocytes # (Manual) Eosinophils # (Manual) PT INR APTT D-Dimer Heparin Anti-Xa Level ABG pH POC ABG pCO2 POC ABG pO2 ABG pO2 ABG HCO3 ABG O2 Saturation ABG Base Excess ABG Hemoglobin ABG Oxyhemoglobin ABG Sodium ABG Potassium ABG Chloride ABG Glucose Oxyhemoglobin Carboxyhemoglobin Sodium Potassium Chloride Carbon Dioxide BUN Creatinine Glucose POC Glucose 171 H 162 H 166 H Lactic Acid Calcium Magnesium Ferritin Total Bilirubin Direct Bilirubin AST ALT Alkaline Phosphatase Lactate Dehydrogenase C-Reactive Protein Total Protein Albumin Triglycerides Lipase Arterial Blood Glucose Arterial Blood Ionized Calcium Urine WBC (Auto) Coronavirus (PCR) SARS-CoV-2 IgG Ab Crossmatch 07/19/20 07/19/20 07/19/20 12:00 16:27 23:41 WBC RBC Hgb Hct MCV MCH MCHC RDW Lymph % (Auto) Mathews % (Auto) Lymph # (Auto) Mathews # (Auto) Baso # (Auto) Seg Neutrophils % Seg Neuts % (Manual) Lymphocytes % (Manual) Nucleated RBC % Seg Neutrophils # Seg Neutrophils # Man Lymphocytes # (Manual) Monocytes # (Manual) Eosinophils # (Manual) PT INR APTT D-Dimer Heparin Anti-Xa Level ABG pH POC ABG pCO2 POC ABG pO2 ABG pO2 ABG HCO3 ABG O2 Saturation ABG Base Excess ABG Hemoglobin ABG Oxyhemoglobin ABG Sodium ABG Potassium ABG Chloride ABG Glucose Oxyhemoglobin Carboxyhemoglobin Sodium Potassium Chloride Carbon Dioxide BUN Creatinine Glucose POC Glucose 201 H 205 H 106 H Lactic Acid Calcium Magnesium Ferritin Total Bilirubin Direct Bilirubin AST ALT Alkaline Phosphatase Lactate Dehydrogenase C-Reactive Protein Total Protein Albumin Triglycerides Lipase Arterial Blood Glucose Arterial Blood Ionized Calcium Urine WBC (Auto) Coronavirus (PCR) SARS-CoV-2 IgG Ab Crossmatch 07/20/20 05:28 WBC RBC Hgb Hct MCV MCH MCHC RDW Lymph % (Auto) Mathews % (Auto) Lymph # (Auto) Mathews # (Auto) Baso # (Auto) Seg Neutrophils % Seg Neuts % (Manual) Lymphocytes % (Manual) Nucleated RBC % Seg Neutrophils # Seg Neutrophils # Man Lymphocytes # (Manual) Monocytes # (Manual) Eosinophils # (Manual) PT INR APTT D-Dimer Heparin Anti-Xa Level ABG pH POC ABG pCO2 POC ABG pO2 ABG pO2 ABG HCO3 ABG O2 Saturation ABG Base Excess ABG Hemoglobin ABG Oxyhemoglobin ABG Sodium ABG Potassium ABG Chloride ABG Glucose Oxyhemoglobin Carboxyhemoglobin Sodium Potassium Chloride Carbon Dioxide BUN Creatinine Glucose POC Glucose 130 H Lactic Acid Calcium Magnesium Ferritin Total Bilirubin Direct Bilirubin AST ALT Alkaline Phosphatase Lactate Dehydrogenase C-Reactive Protein Total Protein Albumin Triglycerides Lipase Arterial Blood Glucose Arterial Blood Ionized Calcium Urine WBC (Auto) Coronavirus (PCR) SARS-CoV-2 IgG Ab Crossmatch Allied health notes reviewed: nursing
--- NOTE | 2020-07-20 12:08 | Progress Note ---
Assessment and Plan Cultures: Blood culture 04/28/2020 no growth today SARS CoV2 PCR positive Sputum and urine culture with no significant growth Blood culture 07/13/2020 Pseudomonas species Assessment: 50 years old male with history of alcohol dependence and obesity admitted on 05/09/2020 due to 5-day history of generalized malaise, fatigue, body aches, dyspnea exertion, cough and shortness of breath, tested positive for COVID-19 2 days before admission: #Pseudomonas bacteremia: Awaiting ID and DOLLY. Currently on cefepime, fevers have resolved since initiation of antibiotics. Continue pending results. Possibly from lungs? #VAP: extubated since onset of bacteremia. Given Pseudomonas in the blood and bilateral airspace disease, presumed VAP. Elevated procalcitonin. #Severe sepsis: likely due to bilateral pneumonia from COVID. #COVID-19: Diagnosed in early May, now with negative PCR. #Acute hypoxemic respiratory failure: intubated on 05/22/2020. Extubated 07/13/2020 Recommendations: -Continue cefepime 2 g every 8 hours. Will need 2 weeks of antibiotics total. Ideally could discharge with levofloxacin if sensitive. -Follow up blood culture ID and DOLLY. Likely to appear in labs "scanned reports" Patricia Buchanan MD [facility] ([facility] O: [phone] F: [phone] Subjective Date of service: 07/20/20 Principal diagnosis: Ac hypoxemic resp failure; COVID-19; Severe Sepsis; Shaggy PNA; Alcohol Abuse Interval history: Afebrile, remains tachycardic. Still awaiting final blood culture report. Objective - Exam Narrative Exam: Physical Exam: Constitutional: Alert, cooperative. No acute distress. On nasal cannula. Head, Ears, Nose: Normocephalic, atraumatic. Eyes: Conjunctivae/corneas clear. No icterus. No ptosis. Neck: Supple, no meningeal signs Oral: dentition fair, no thrush Cardiovascular: S1, S2 normal. Respiratory: Good air entry, clear to auscultation bilaterally GI: Soft, non-tender; bowel sounds normal. No peritoneal signs. Musculoskeletal: No pedal edema, no cyanosis. Skin: No rash or abscess Hem/Lymphatic: No palpable cervical or supraclavicular nodes. Psych: Mood ok. Affect normal Neurological: Awake, alert, oriented. No gross abnormality - Constitutional Vitals: Vital Signs Temp Pulse Resp BP Pulse Ox 98.6 F 118 H 34 H 117/73 97 07/20/20 08:00 07/20/20 11:00 07/20/20 11:00 07/20/20 11:00 07/20/20 11:00 Temperature -Last 24 Hours Temperature 98.6 F Temperature 98.7 F Temperature 98.8 F Temperature 98.4 F Temperature 98.1 F - Labs CBC & Chem 7: 07/18/20 08:47 07/18/20 08:47 Labs: Abnormal lab results 07/19/20 07/19/20 07/20/20 Range/Units 16:27 23:41 05:28 POC Glucose 205 H 106 H 130 H (70-105) mg/dL 07/20/20 Range/Units 11:18 POC Glucose 195 H (70-105) mg/dL
[2020-07-21] MEDS: CEFEPIME/NS 2 GM/100 ML 2 GM/100 ML BAG IV SCH ×3 (05:55→20:53)
[2020-07-21] MEDS: INSULIN LISPRO 100 UNIT/ML VIAL 3 mL SUB-Q SCH ×4 (06:11→17:31)
--- NOTE | 2020-07-21 08:14 | XRay Report ---
CHEST 1 VIEW INDICATION / CLINICAL INFORMATION: f/u chest tube on water seal. COMPARISON: 07/19/2020, 07/17/2020, 07/16/2020. FINDINGS: SUPPORT DEVICES: Interval extubation and removal of gastric tube. A right-sided chest tube appears no t significantly changed. HEART / MEDIASTINUM: No significant abnormality. LUNGS / PLEURA: Stable diffuse mild airspace disease bilaterally. No significant pneumothorax. No def inite pleural effusion. ADDITIONAL FINDINGS: No significant additional findings. IMPRESSION: 1. Interval extubation and removal of gastric tube. A right-sided chest tube appears not significantl y changed. No significant pneumothorax. 2. Stable diffuse mild airspace disease bilaterally. Signer Name: Davian Leal MD Signed: 07/21/2020 8:10 AM Workstation Name: [id number]
[2020-07-21] MEDS: MIDODRINE 5 MG TAB PO SCH ×3 (09:29→17:31)
[2020-07-21] MEDS: PHENobarbital 32.4 MG TAB PO SCH ×2 (10:29→21:04)
[2020-07-21] MEDS: QUEtiapine 200 MG TAB PO SCH (10:29)
[2020-07-21] MEDS: guaiFENesin ER 600 MG TAB PO SCH ×2 (10:30→21:04)
[2020-07-21] MEDS: methylPREDNISolone Sod Succinate 40 MG/1 ML INJ IV SCH (10:30)
[2020-07-21] MEDS: METOPROLOL TARTRATE 25 MG TAB PO SCH ×2 (10:30→21:04)
[2020-07-21] MEDS: FOLIC ACID 1 MG TAB PO SCH (10:31)
[2020-07-21] MEDS: DOCUSATE SODIUM 100 MG/10 ML ORAL LIQD PO SCH ×2 (10:31→21:03)
[2020-07-21] MEDS: ENOXAPARIN 80 MG/0.8 ML INJ SUB-Q SCH ×2 (10:31→21:04)
[2020-07-21] MEDS: ENOXAPARIN 30 MG/0.3 ML INJ SUB-Q SCH ×2 (10:31→21:03)
[2020-07-21] MEDS: LANSOPRAZOLE 30 MG SOLUTAB FEEDTUBE SCH (10:32)
--- NOTE | 2020-07-21 11:08 | Progress Note ---
Subjective - Reason for Consult Consult date: 07/21/20 Reason for consult: MHE Requesting physician: BLAIR WALLIS - Chief Complaint Chief complaint: ICU Nurse:1900 Pt. received awake, alert and oriented x 3. O2 sat = 90%. Lungs clear but diminished. ekg monitor showing ST. Non productive cough noted. Right chest tube intact to wall suction serosanguineous drainage. Condom cath to BSD camilo color urine. Left AC and left forearm INT's in use. No s/s of infiltration at sites. Sacral dsg. intact. Denies pain at this time.In no acute distress. Will continue to monitor. Psych Progress Patient seen today, improved mood and affect, denies SI, HI, or AVH. ALert and oriented, improved mood stability MENTAL STATUS EXAMINATION General Appearance and Behavior: Age appropriate, good hygiene, wearing appropriate clothes, cooperative polite with questioning. Cooperation: engaged Psychomotor Behavior: Psychomotor normal Mood: feel better Affect and affective range: congruent with mood Thought Process: logical Thought Content: within reality Speech: Low volume, Regular rate and rhythm, Intellectual Functioning: improved Suicidal Ideation: none Homicidal Ideation: none Impulse Control: Unimpaired Insight and Judgment: unimpaired Memory: memory impaired Attention: alert and oriented Assessment and Plan - Psychiatric problem (1) Delirium due to another medical condition Current Visit: Yes Status: Acute F05 Treatment Continue current medications MEDICATIONS: Risks, benefits and alternatives of medications discussed with the patient, questions answered and consent obtained from patient. PSYCHOTHERAPY: Supportive psychotherapy provided MEDICAL: Per primary team DELIRIUM PRECAUTIONS: Please re-orient patient frequently, keep lights on during the day, and minimize benzodiazepines and opiates as these medications could worsen patient's confusion. DIRECTOR OF RADIOLOGY: DISPOSITION: Do Not Recommend acute inpatient psychiatric hospitalization at this time but patient will be followed. Case discussed with Dr. Foster who agrees with current disposition FOLLOW-UP: Will follow Thank you for the consult. Please contact with any questions and/or concerns. Mental Status Exam - Vital signs Last Vital Signs Temp 98.5 F 07/21/20 08:00 Pulse 99 H 07/21/20 06:00 Resp 18 07/21/20 06:00 BP 115/81 07/21/20 06:00 Pulse Ox 97 07/21/20 08:07 Assessment and Plan - Patient Problems (1) Delirium due to another medical condition Current Visit: Yes Status: Acute
--- NOTE | 2020-07-21 13:16 | Progress Note ---
Assessment and Plan Assessment and plan: 50 YO Male with Obesity, ETOH Dependence presents to ED for evaluation. Patient states that he has experienced shortness of breath, generalized weakness, fatigue, malaise, body aches, decreased exercise tolerance over the past 5 days with persistently worsening symptoms over the same timeframe. EMS was notified and upon arrival the patient was found to be in distress with a pulse oximetry of 76% on room air as well as fever to 103 F. Patient was placed on supplemental oxygen and subsequently transported to [facility] for further care and evaluation. Patient seen and evaluated in the emergency department. All lab and imaging studies reviewed. Patient underwent chest x-ray and was found to have bilateral pneumonia. Patient also found to have a pulse oximetry of 86% on 4 L nasal cannula. Patient initiated on a high flow submental oxygen with improvement of pulse oximetry. Patient admitted to medical floor and initiated on pneumonia protocol as well as COVID-19 protocol. Patient also found to have acute kidney injury as well as elevated liver function test suspected secondary to alcohol dependence. Patient reports being diagnosed with coronavirus 2 days ago. No prior admission for review. --Acute hypoxemic respiratory failure;on high flow nasal cannula oxygen Status post extubation, high flow oxygen and BiPAP ,wean as tolerated, supportive care Pulmonary critical l care following --Pneumothorax status post right chest tube Chest x-ray no pneumothorax chest tube in place --Sinus tachycardia: --Severe COVID-19 bilateral pneumonia Coronavirus protocol: IV steroid therapy, completed remdesivir, isolation precautions, contact precautions, prone positioning while in bed, pulmonary toilet. ID following SARS CoV-2 IgG positive patient is NOT a candidate for convalescent plasma --Elevated D-dimers/hyper coag state; Empiric anticoagulation with full dose Lovenox Closely monitor --Pseudomonas bacteremia; ID following, Continue cefepime --Severe sepsis/septic shock, due to COVID 19 PNA cont pressors as needed -- Acute kidney injury (SEN) , likely vasomotor nephropathy Resolved, IV fluids, avoid nephrotoxins --Acute on chronic anemia Guaiac test positive, GI evaluation PPIs, Continue to monitor -- Elevated liver function tests Suspected secondary to alcoholic liver disease. Supportive care, alcohol cessation, patient counseled. --Colonic distention GI evaluated colonic distention resolved recommend stool softeners Serial abdominal x-rays Monitor electrolytes and replete -- DVT prophylaxis On therapeutic Lovenox Closely monitor the patient and adjust management as needed Patient is critically ill with poor prognosis Plan of care reviewed with the patient's nurse We will try to contact family and update patient's condition 50 YO Male with Obesity, ETOH Dependence presents to ED for evaluation for shortness of breath, generalized weakness, fatigue, malaise, body aches, decreased exercise tolerance over the past 5 days. EMS was notified and upon arrival the patient was found to be in distress with a pulse oximetry of 76% on room air as well as fever to 103 F. In the ER chest x-ray and was found to have bilateral pneumonia. Patient admitted to medical floor and initiated on pneumonia protocol as well as COVID-19 protocol. Patient reports being diagnosed with coronavirus 2 days ago before admission. 06/16/2020. Patient currently on mechanical ventilation with AC mode rate 30, tidal volume 500, FiO2 70% and PEEP of 16. Continue anticoagulation with Lovenox 110 milligrams subcu every 12 hours. Wean sedation of fentanyl/Versed as needed. Currently with IV steroids of Solu-Medrol 40 mg IV every 12 hours. Patient will likely need tracheostomy per pulmonary recommendations. Continue pressors to maintain MAP > 65. 06/17/2020. Patient currently on mechanical ventilation with AC mode rate 30, tidal volume 500, FiO2 65% and PEEP of 16. Continue anticoagulation with Lovenox 110 milligrams subcu every 12 hours. Wean sedation of fentanyl/Versed as needed. Currently with IV steroids of Solu-Medrol 40 mg IV every 12 hours. Patient will likely need tracheostomy per pulmonary recommendations. 06/18/2020. Patient currently on mechanical ventilation with AC mode rate 30, tidal volume 500, FiO2 70% and PEEP of 16. Continue Lovenox for anticoagulation and fentanyl/Versed for sedation. Wean steroids per pulmonary. CIWA protocol initiated for history of EtOH dependence 06/19/2020. Patient currently on mechanical ventilation with AC mode rate 30, tidal volume 500, FiO2 60% and PEEP of 16. Wean FiO2 as tolerated per protocol. Continue Lovenox for anticoagulation and fentanyl/Versed for sedation. Wean steroids per pulmonary. CIWA protocol initiated for history of EtOH dependence 06/20/2020. Patient currently on mechanical ventilation with AC mode rate 30, tidal volume 500, FiO2 60% and PEEP of 16. Wean FiO2 as tolerated, SBT per protocol. Continue Lovenox for anticoagulation and fentanyl/Versed for sedation. Wean steroids per pulmonary. Continue pressors to maintain MAP > 65 mmHg. Patient remains on ETT. Consider tracheostomy placement once oxygenation is better per pulmonary. CIWA protocol initiated for history of EtOH dependence. 06/21/2020. Patient with a small apical pneumothorax discovered yesterday. General surgery consulted and consider placing chest tube. Follow-up serial chest x-ray patient currently on mechanical ventilation with AC mode rate 30, tidal volume 500, FiO2 60% and PEEP of 16. Wean FiO2 as tolerated, SBT per protocol. Continue Lovenox for anticoagulation and fentanyl/Versed for sedation. Wean steroids per pulmonary. Continue pressors to maintain MAP > 65 mmHg. Patient remains on ETT. Consider tracheostomy placement once oxygenation is better per pulmonary. CIWA protocol initiated for history of EtOH dependence. 06/22. Status post right chest tube placement yesterday. Remains mechanically ventilated on pressors. Examination today shows slightly distended abdomen. KUB ordered. Awaiting stool guaiac. Plan to get a GI evaluation. 06/23. Has colonic distention on the x-ray. Discussed with GI-advised stool softeners for now and close monitoring. No indication for colonic decompression at this time. Guaiac test is positive. No emergent indication for endoscopy at this point as per GI. Continue to monitor hemoglobin. 06/24. Remains intubated. On pressors. GI following for positive guaiac stool and anemia, and colonic distention. 06/25. Repeat abdominal xray ordered. Remains on mechanical ventilation. 06/26. Abdominal xray - resolved colonic distension. Mechanically ventilated. 06/27. Plan for trach and PEG. 06/28: Awaiting trach and Peg. S\ome Bm REPORTED, will continue to monitor 06/29: Resume care, patient remains on ventilator support, waiting on trach and PEG placement. BM reported by the RN, continue to monitor. 06/30: Unable to wean off from vent, patient will need trach and PEG. Continue supportive care, tolerating tube feed. Monitor CBC and BMP 07/01: Continue mechanical ventilation, tube feeding as tolerated. Sedation as needed per mechanical ventilation protocol. Waiting on trach and PEG placement. 07/02: Continue current management, tube feeding, monitor CBC and BMP. Need trach and PEG-waiting on scheduling. Pulmonary critical care following. 07/03: wean off vent as tolerated. follow clinically. need trach and PEG 07/04: unable to wean. CT head ordered to assess for any changes but too unstable to do the test. need trach and PEG. 07/05: plan for trach/peg - GS following. off pressor - on midodrine. renal function stable. intubated, but alert and can follow minor commend. discussed with daughter by phone. 07/06/2020; Dr. Márquez discussed with patient's daughter about trach but the daughter needs time to think about it. Patient was intubated and alert, FiO2 40%. 07/07/2020; patient was intubated and alert, FiO2 40%. Patient was diaphoretic, tachycardic, and EKG was done which was abnormal for me. I called pharmacovigilance safety expert Dr Louis saw the EKG and said it is normal EKG, and the findings are abnormal. 07/08/2020; no significant change, patient is intubated and alert. 12: Patient continues on current management. Pulmonary recommending trach and PEG awaiting patient's decision on this. Will check intermittent labs 07/11: Ordered CT still pending. Patient was agitated at night. Appears to have calmed down. Will repeat labs today. 07/12: Continue supportive care, awaiting CPAP trial. discussed with pulmonary. Obtain labs today. Trach and Peg planned 07/13: Continues to current management, PLAN FOR Trach and PEG on Sunday if patient is not able to liberated from the ventilator, Continue to monitor Fever curve and repeat Sepsis work up if persistent fever 07/14: Now extubated, continue to work up. 07/15: Clinical stable for transfer to [facility], still with fever and now showing bactermia. Continue Abx per ID. monitor fever 07/16: Continue supportive care. MONITOR FEVER CURVE, Adjust antibiotics as tolerated 07/17: Chest tube remains in place. More lethargic, Requested BIPAP to bedside, Chest tube to be discontinued, Awaiting Pysch input. 07/18: Chest tube remains in place repeat chest x-ray shows persistent bilateral opacity with mild improvement. Continue nebulizer treatments. Hypokalemia also noted will replace. Pulmonary and surgical input noted 07/19: Patient is a 50-year-old male admitted with shortness of breath ended up on mechanical ventilation noted to have pneumothorax has a chest tube in place. Has been successfully extubated but remains with delirium secondary to medical condition and also mild to moderate respiratory distress on Venturi mask. Continue weaning attempts. Patient still with chest tube. Continue serial x- rays. Will discuss with case management about possible LTAC placement. Blood cultures are currently returning Pseudomonas species. ID is following. 07/20/2020; patient continues to feel better, high flow oxygen and BiPAP Chest tube in place, continue current management, pulmonary surgery following 07/21/2020:Patient remains on High flow o2 The high probability of a clinically significant, sudden or life threatening deterioration of the [respiratory] system(s) required my full and direct attention, intervention and personal management. The aggregate critical care time was [33] minutes. This time is in addition to time spent performing reported procedures but includes the following: [x] Data Review and interpretation [x] Patient assessment and monitoring of vital signs [x] Documentation [x] Medication orders and management History Interval history: I have seen the patient in his room from a distance Isolation precautions and strict PPE protocols implemented Covid positive patient on BiPAP and high flow oxygen In mild distress, patient noncommunicative lethargic Vital signs noted Hospitalist Physical - Constitutional Vitals: Temp Pulse Resp BP Pulse Ox 98.5 F 99 H 18 115/81 96 07/21/20 08:00 07/21/20 06:00 07/21/20 06:00 07/21/20 06:00 07/21/20 12:39 General appearance: Present: no acute distress, mild distress, well-nourished, other (On BiPAP) - EENT Eyes: Present: PERRL, EOM intact - Neck Neck: Present: supple, normal ROM - Respiratory Respiratory effort: normal Respiratory: bilateral: diminished, negative: rales, rhonchi, wheezing - Cardiovascular Rhythm: regular Heart Sounds: Present: S1 & S2 - Extremities Extremities: no ischemia, No edema - Abdominal General gastrointestinal: soft, non-tender, non-distended, normal bowel sounds - Integumentary Integumentary: Present: clear, warm - Psychiatric Psychiatric: other (Lethargic noncommunicative) - Neurologic Neurologic: other (Lethargic noncommunicative) HEART Score - HEART Score Troponin: Troponin T 0.015 ng/mL (0.00-0.029) 07/07/20 10:00 Results - Labs CBC & Chem 7: 01/10/21 08:47 07/18/20 08:47 Labs: Laboratory Last Values WBC 17.7 K/mm3 (4.5-11.0) H 07/18/20 08:47 RBC 3.29 M/mm3 (3.65-5.03) L 07/18/20 08:47 Hgb 10.5 gm/dl (11.8-15.2) L 07/18/20 08:47 Hct 31.8 % (35.5-45.6) L 07/18/20 08:47 MCV 97 fl (84-94) H 07/18/20 08:47 MCH 32 pg (28-32) 07/18/20 08:47 MCHC 33 % (32-34) 07/18/20 08:47 RDW 16.9 % (13.2-15.2) H 07/18/20 08:47 Plt Count 374 K/mm3 (140-440) 07/18/20 08:47 Lymph % (Auto) 15.0 % (13.4-35.0) 07/18/20 08:47 [place] % (Auto) 8.6 % (0.0-7.3) H 07/18/20 08:47 Eos % (Auto) 1.5 % (0.0-4.3) 07/18/20 08:47 Baso % (Auto) 0.3 % (0.0-1.8) 07/18/20 08:47 Lymph # (Auto) 2.6 K/mm3 (1.2-5.4) 07/18/20 08:47 [place] # (Auto) 1.5 K/mm3 (0.0-0.8) H 07/18/20 08:47 Eos # (Auto) 0.3 K/mm3 (0.0-0.4) 07/18/20 08:47 Baso # (Auto) 0.0 K/mm3 (0.0-0.1) 07/18/20 08:47 Add Manual Diff Complete 07/13/20 08:31 Total Counted 100 07/13/20 08:31 Seg Neutrophils % 74.6 % (40.0-70.0) H 07/18/20 08:47 Seg Neuts % (Manual) 96.0 % (40.0-70.0) H 07/13/20 08:31 Band Neutrophils % 0 % 07/13/20 08:31 Lymphocytes % (Manual) 2.0 % (13.4-35.0) L 07/13/20 08:31 Reactive Lymphs % (Man) 0 % 07/13/20 08:31 Monocytes % (Manual) 2.0 % (0.0-7.3) 07/13/20 08:31 Eosinophils % (Manual) 0 % (0.0-4.3) 07/13/20 08:31 Basophils % (Manual) 0 % (0.0-1.8) 07/13/20 08:31 Metamyelocytes % 0 % 07/13/20 08:31 Myelocytes % 0 % 07/13/20 08:31 Promyelocytes % 0 % 07/13/20 08:31 Blast Cells % 0 % 07/13/20 08:31 Nucleated RBC % Not Reportable 07/13/20 08:31 Seg Neutrophils # 13.2 K/mm3 (1.8-7.7) H 07/18/20 08:47 Seg Neutrophils # Man 20.4 K/mm3 (1.8-7.7) H 07/13/20 08:31 Band Neutrophils # 0.0 K/mm3 07/13/20 08:31 Lymphocytes # (Manual) 0.4 K/mm3 (1.2-5.4) L 07/13/20 08:31 Abs React Lymphs (Man) 0.0 K/mm3 07/13/20 08:31 Monocytes # (Manual) 0.4 K/mm3 (0.0-0.8) 07/13/20 08:31 Eosinophils # (Manual) 0.0 K/mm3 (0.0-0.4) 07/13/20 08:31 Basophils # (Manual) 0.0 K/mm3 (0.0-0.1) 07/13/20 08:31 Metamyelocytes # 0.0 K/mm3 07/13/20 08:31 Myelocytes # 0.0 K/mm3 07/13/20 08:31 Promyelocytes # 0.0 K/mm3 07/13/20 08:31 Blast Cells # 0.0 K/mm3 07/13/20 08:31 WBC Morphology Not Reportable 07/13/20 08:31 Hypersegmented Neuts Not Reportable 07/13/20 08:31 Hyposegmented Neuts Not Reportable 07/13/20 08:31 Hypogranular Neuts Not Reportable 07/13/20 08:31 Smudge Cells Not Reportable 07/13/20 08:31 Toxic Granulation Not Reportable 07/13/20 08:31 Toxic Vacuolation Not Reportable 07/13/20 08:31 Dohle Bodies Not Reportable 07/13/20 08:31 Pelger-Huet Anomaly Not Reportable 07/13/20 08:31 Jason Rods Not Reportable 07/13/20 08:31 Platelet Estimate Consistent w auto 07/13/20 08:31 Clumped Platelets Not Reportable 07/13/20 08:31 Plt Clumps, EDTA Not Reportable 07/13/20 08:31 Large Platelets Not Reportable 07/13/20 08:31 Giant Platelets Not Reportable 07/13/20 08:31 Platelet Satelliting Not Reportable 07/13/20 08:31 Plt Morphology Comment Not Reportable 07/13/20 08:31 RBC Morphology Not Reportable 07/13/20 08:31 Dimorphic RBCs Not Reportable 07/13/20 08:31 Polychromasia Not Reportable 07/13/20 08:31 Hypochromasia Not Reportable 07/13/20 08:31 Poikilocytosis Not Reportable 07/13/20 08:31 Anisocytosis Not Reportable 07/13/20 08:31 Microcytosis Not Reportable 07/13/20 08:31 Macrocytosis Not Reportable 07/13/20 08:31 Spherocytes Not Reportable 07/13/20 08:31 Pappenheimer Bodies Not Reportable 07/13/20 08:31 Sickle Cells Not Reportable 07/13/20 08:31 Target Cells Not Reportable 07/13/20 08:31 Tear Drop Cells Not Reportable 07/13/20 08:31 Ovalocytes Not Reportable 07/13/20 08:31 Stomatocytes Few 07/13/20 08:31 Helmet Cells Not Reportable 07/13/20 08:31 [place] Bodies Not Reportable 07/13/20 08:31 [place] Rings Not Reportable 07/13/20 08:31 [place] Cells Not Reportable 07/13/20 08:31 Bite Cells Not Reportable 07/13/20 08:31 Crenated Cell Not Reportable 07/13/20 08:31 Elliptocytes Not Reportable 07/13/20 08:31 Acanthocytes (Spur) Not Reportable 07/13/20 08:31 Rouleaux Not Reportable 07/13/20 08:31 Hemoglobin C Crystals Not Reportable 07/13/20 08:31 Schistocytes Not Reportable 07/13/20 08:31 Malaria parasites Not Reportable 07/13/20 08:31 Josue Bodies Not Reportable 07/13/20 08:31 Hem Pathologist Commnt No 07/13/20 08:31 PT 11.8 Sec. (12.2-14.9) L 06/22/20 14:29 INR 0.88 (0.87-1.13) 06/22/20 14:29 APTT 23.5 Sec. (24.2-36.6) L 06/22/20 14:29 D-Dimer 1887.82 ng/mlDDU (0-234) H 05/20/20 08:16 Heparin Anti-Xa Level 0.37 U.I./ml (0.3-0.7) 07/02/20 16:08 ABG pH 7.477 (7.320-7.450) H 07/13/20 13:52 POC ABG pCO2 54.4 mmHg (32.0-48.0) H 07/13/20 13:52 ABG pCO2 53.1 mm Hg 07/08/20 Unknown POC ABG pO2 126.8 mmHg (83-108) H 07/13/20 13:52 ABG pO2 75.3 mm Hg (80.0-90.0) L 07/08/20 Unknown POC ABG HCO3 39.3 07/13/20 13:52 ABG HCO3 34.3 mmol/L (20.0-26.0) H 07/08/20 Unknown ABG O2 Saturation 96.5 % (95.0-99.0) 07/08/20 Unknown ABG O2 Content 13.5 (0.0-44) 07/08/20 Unknown POC ABG Base Excess 13.8 07/13/20 13:52 ABG Base Excess 8.7 mmol/L (-2.0-3.0) H 07/08/20 Unknown ABG Hemoglobin 11.5 (12.0-17.5) L 07/13/20 13:52 ABG Oxyhemoglobin 97.7 (94-98) 07/13/20 13:52 ABG Carboxyhemoglobin 2.4 % (0.0-5.0) 07/08/20 Unknown ABG Methemoglobin 0 (0.0-1.5) 07/13/20 13:52 ABG Sodium 136.2 mmol/L (136.0-145.0) 07/13/20 13:52 ABG Potassium 3.2 mmol/L (3.40-4.50) L 07/13/20 13:52 ABG Chloride 92.0 mmol/L (98-107) L 07/13/20 13:52 ABG Glucose 169 mg/dL (65-95) H 07/13/20 13:52 Oxyhemoglobin 93.7 % (95.0-99.0) L 07/08/20 Unknown Carboxyhemoglobin 1.2 (0.5-1.5) 07/13/20 13:52 FiO2 45 07/13/20 13:52 Sodium 138 mmol/L (137-145) 07/18/20 08:47 Potassium 2.8 mmol/L (3.6-5.0) L* 07/18/20 08:47 Chloride 92.6 mmol/L (98-107) L 07/18/20 08:47 Carbon Dioxide 40 mmol/L (22-30) H 07/18/20 08:47 Anion Gap 8 mmol/L 07/18/20 08:47 BUN 11 mg/dL (9-20) 07/18/20 08:47 Creatinine 0.3 mg/dL (0.8-1.3) L 07/18/20 08:47 Estimated GFR > 60 ml/min 07/18/20 08:47 BUN/Creatinine Ratio 37 % 07/18/20 08:47 Glucose 177 mg/dL (75-100) H 07/18/20 08:47 POC Glucose 142 mg/dL (70-105) H 07/21/20 05:03 Lactic Acid 0.80 mmol/L (0.7-2.0) 07/13/20 15:45 Calcium 9.7 mg/dL (8.4-10.2) 07/18/20 08:47 Phosphorus 3.10 mg/dL (2.5-4.5) 06/15/20 04:00 Magnesium 1.80 mg/dL (1.7-2.3) 07/14/20 07:49 Ferritin 1496.0 ng/mL (30.0-300.0) H 06/14/20 11:50 Total Bilirubin 0.60 mg/dL (0.1-1.2) 06/30/20 07:00 Direct Bilirubin 0.6 mg/dL (0-0.2) H 05/11/20 07:30 Indirect Bilirubin 0.9 mg/dL 05/11/20 07:30 AST 21 units/L (5-40) 06/30/20 07:00 ALT 30 units/L (7-56) 06/30/20 07:00 Alkaline Phosphatase 81 units/L (35-129) 06/30/20 07:00 Lactate Dehydrogenase 705 units/L (91-180) H 05/20/20 08:16 Troponin T 0.015 ng/mL (0.00-0.029) 07/07/20 10:00 C-Reactive Protein 3.10 mg/dL (0.00-1.30) H 05/20/20 08:16 Total Protein 6.3 g/dL (6.3-8.2) 06/30/20 07:00 Albumin 2.8 g/dL (3.9-5) L 06/30/20 07:00 Albumin/Globulin Ratio 0.8 % 06/30/20 07:00 Triglycerides 452 mg/dL (2-149) H 06/30/20 07:00 Lipase 86 units/L (13-60) H 06/29/20 09:36 Procalcitonin 2.15 ng/mL (<0.15) 07/15/20 05:31 Arterial Blood Glucose 169 mg/dL (65-95) H 07/13/20 13:52 Arterial Blood Ionized Calcium 4.8 mg/dL (4.6-5.3) 07/13/20 13:52 Urine Color Fauzia (Yellow) 05/10/20 Unknown Urine Turbidity Clear (Clear) 05/10/20 Unknown Urine pH 5.0 (5.0-7.0) 05/10/20 Unknown Ur Specific [place] 1.019 (1.003-1.030) 05/10/20 Unknown Urine Protein 100 mg/dl mg/dL (Negative) 05/10/20 Unknown Urine Glucose (UA) Neg mg/dL (Negative) 05/10/20 Unknown Urine Ketones Neg mg/dL (Negative) 05/10/20 Unknown Urine Blood Lg (Negative) 05/10/20 Unknown Urine Nitrite Neg (Negative) 05/10/20 Unknown Urine Bilirubin Neg (Negative) 05/10/20 Unknown Urine Urobilinogen 2.0 mg/dL (<2.0) 05/10/20 Unknown Ur Leukocyte Esterase Neg (Negative) 05/10/20 Unknown Urine WBC (Auto) 11.0 /HPF (0.0-6.0) H 05/10/20 Unknown Urine RBC (Auto) 2.0 /HPF (0.0-6.0) 05/10/20 Unknown U Epithel Cells (Auto) 1.0 /HPF (0-13.0) 05/10/20 Unknown Urine Bacteria (Auto) 1+ /HPF (Negative) 05/10/20 Unknown Urine Mucus Few /HPF 05/10/20 Unknown Plasma/Serum Alcohol < 0.01 % (0-0.07) 05/09/20 14:20 Coronavirus (PCR) Negative (Negative) 06/30/20 10:28 Hepatitis A Ab Total Nonreactive (Nonreactive) 07/09/20 Unknown Hep B Core Total Ab Nonreactive (Nonreactive) 07/09/20 Unknown Hepatitis C RNA Quant See scanned result 07/09/20 Unknown SARS-CoV-2 IgG Ab Reactive (NonReactive) A 05/11/20 07:30 Blood Type B POSITIVE 06/21/20 14:18 Antibody Screen Negative 06/21/20 14:18 Crossmatch See Detail 06/21/20 14:18 - Diagnostic Impressions Diagnostic Impressions: Echocardiogram 05/20/20 13:02 Transthoracic Echocardiogram Indication: CHF BP: 97/73 Conclusions *The study quality is technically very difficult and limited. *The left ventricular chamber size, wall thickness and systolic function are within normal limits. There are no wall motion abnormalities observed. Ejection fraction is normal. *The estimated ejection fraction is 60-65%. *The pericardium appears normal. Findings Procedure Info: The study quality is technically difficult. Left Ventricle: The left ventricular chamber size, wall thickness and systolic function are within normal limits. There are no wall motion abnormalities observed. Ejection fraction is normal. The estimated ejection fraction is 60-65%. Abnormal left ventricular diastolic filling is observed, consistent with impaired relaxation. Left Atrium: The left atrium is normal in size with no visual thrombus identified. Right Ventricle: The right ventricle is not well visualized. Right Atrium: The right atrium is not well visualized. Aortic Valve: The aortic valve is trileaflet. The leaflets are thin with normal excursion. There is no aortic stenosis or regurgitation present. Mitral Valve: The mitral valve appears normal in structure and function. Tricuspid Valve: The tricuspid valve appears normal in structure and function. Unable to estimate the right ventricular systolic pressure. Pulmonic Valve: The pulmonic valve is not well visualized. There is no evidence of pulmonic regurgitation. There is no pulmonic stenosis. Pericardium: The pericardium appears normal. Pulmonary Artery: The main pulmonary artery is not well visualized. Venous: The inferior vena cava appears normal in size. Measurements Chambers 2D Name Value Normal Range IVSd (2D) 0.83 cm (0.6 - 1.1) LVPWd (2D) 0.83 cm (0.6 - 1.1) LVIDd (2D) 3.88 cm (3.7 - 5.6) LVIDs (2D) 2.46 cm (2 - 3.8) LV FS (2D) 36.52 % - EF Teichholz (2D) 66.97 % - Ao root diameter (2D) 3.47 cm (2 - 3.7) Volumes/Mass Name Value Normal Range LA ESV SP 4CH (A/L) 22.4 ml - LA ESV SP 2CH (A/L) 22.89 ml - LA ESV BP (A/L) 23.06 ml - LA ESV SP 4CH (MOD) 21.09 ml - LA ESV SP 2CH (MOD) 22.44 ml - Diastolic/Systolic Function Name Value Normal Range MV E-wave Vmax 0.48 m/sec - MV deceleration time 156.3 msec - MV A-wave Vmax 0.59 m/sec - MV E:A ratio 0.81 ratio - Aortic Valve Name Value Normal Range AV Vmax 0.97 m/sec - AV VTI 14.49 cm - AV peak gradient 3.73 mmHg - AV mean gradient 1.89 mmHg - LVOT diameter 2.09 cm - LVOT Vmax 0.72 m/sec - LVOT VTI 10.21 cm - LVOT peak gradient 2.05 mmHg - LVOT mean gradient 1.03 mmHg - SV LVOT 35.17 ml - INNA (continuity Vmax) 2.55 cm2 - INNA (continuity VTI) 2.43 cm2 - Tricuspid Valve Name Value Normal Range TV E-wave Vmax 0.37 m/sec - Pulmonic Valve/Qp:Qs Name Value Normal Range PV Vmax 0.72 m/sec - PV peak gradient 2.06 mmHg - RVOT Vmax 0.85 m/sec - RVOT VTI 9.89 cm - RVOT peak gradient 2.9 mmHg - PV acceleration time 72.31 msec - Cantor/IV: Voiding Method Condom Catheter IV Catheter Type [Right Upper Peripheral IV arm] IV Catheter Type [Right CVL Internal Jugular] IV Catheter Type [Right Peripheral IV Forearm] IV Catheter Type [Left Forearm INT / Saline Lock ] IV Catheter Type [Left Wrist] INT / Saline Lock IV Catheter Type [Right Hand] INT / Saline Lock IV Catheter Type [Left Hand] INT / Saline Lock IV Catheter Type [Left Peripheral IV Antecubital] Active Medications - Current Medications Current Medications: Generic Name Dose Route Start Last Admin Trade Name Freq PRN Reason Stop Dose Admin Alprazolam 0.25 mg 05/20/20 17:53 07/17/20 12:00 Alprazolam 0.25 Mg Tab PO 0.25 mg Q8H PRN Administration Anxiety Lipase/Protease/Amylase 1 each 05/22/20 13:01 Lipase 10,500/Protease 25,000/Amylase 43,750 (Units) Dr Newell FEEDTUBE PRN PRN For Clogged Feeding Tube Bisacodyl 10 mg 07/14/20 11:00 Bisacodyl 10 Mg Rect Supp VA BID PRN Laxative Effect Docusate Sodium 100 mg 05/28/20 14:00 07/21/20 10:31 Docusate Sodium 100 Mg/10 Ml Oral Liqd PO Not Given BID DESIRE Enoxaparin Sodium 80 mg 07/07/20 23:00 07/21/20 10:31 Enoxaparin 80 Mg/0.8 Ml Inj SUB-Q 80 mg Q12HR DESIRE Administration Enoxaparin Sodium 30 mg 07/07/20 23:00 07/21/20 10:31 Enoxaparin 30 Mg/0.3 Ml Inj SUB-Q 30 mg Q12HR DESIRE Administration Folic Acid 1 mg 05/09/20 15:36 07/21/20 10:31 Folic Acid 1 Mg Tab PO 1 mg QDAY DESIRE Administration Guaifenesin 600 mg 07/19/20 23:00 07/21/20 10:30 Guaifenesin Er 600 Mg Tab PO 600 mg BID DESIRE Administration Hydrophilic Ointment 1 applic 05/21/20 20:33 Lip Therapy Vaseline TP Q2HR PRN Dry Lips Cefepime HCl 2 gm in 100 mls @ 200 mls/hr 07/14/20 21:00 07/21/20 05:55 Cefepime/Ns 2 Gm/100 Ml IV 07/28/20 13:29 100 mls/hr Q8H [facility] Administration Protocol Insulin Human Lispro 0 unit 05/29/20 14:00 07/21/20 06:11 Insulin Lispro 100 Unit/Ml Vial 3 Ml SUB-Q Not Given Q6H [facility] Protocol Lansoprazole 30 mg 06/28/20 10:00 07/21/20 10:32 Lansoprazole 30 Mg Solutab FEEDTUBE 30 mg QDAY DESIRE Administration Lorazepam 1 mg 07/04/20 01:10 07/18/20 11:57 Lorazepam 2 Mg/Ml Vial IV 1 mg Q1HR PRN Administration agitation Methylprednisolone Sodium Succinate 20 mg 07/15/20 10:00 07/21/20 10:30 Methylprednisolone Sod Succinate 40 Mg/1 Ml Inj IV 20 mg Q24HR DESIRE Administration Metoprolol Tartrate 5 mg 07/02/20 17:17 07/08/20 14:38 Metoprolol Tartrate 5 Mg/5 Ml Inj IV 5 mg Q6HR PRN Administration Tachyarrhythmias Metoprolol Tartrate 12.5 mg 07/17/20 12:00 07/21/20 10:30 Metoprolol Tartrate 25 Mg Tab PO 12.5 mg BID DESIRE Administration Midodrine 10 mg 06/30/20 16:00 07/21/20 09:29 Midodrine 5 Mg Tab PO 10 mg TID@0800,1200,1600 DESIRE Administration Multi-Ingred Cream/Lotion/Oil/Oint 1 applic 05/21/20 20:33 Mineral Oil/Petrolatum, White Ophth Oint 3.5 Gm OU Q4HR PRN Dry Eye(s) Olanzapine 5 mg 07/17/20 22:00 07/20/20 22:56 Olanzapine 5 Mg Tab PO 5 mg QHS DESIRE Administration Phenobarbital 32.4 mg 07/04/20 22:00 07/21/20 10:29 Phenobarbital 32.4 Mg Tab PO 32.4 mg BID DESIRE Administration Quetiapine Fumarate 200 mg 07/16/20 10:00 07/21/20 10:29 Quetiapine 200 Mg Tab PO 200 mg QAM DESIRE Administration Senna 17.2 mg 07/14/20 11:00 Sennosides 8.6 Mg Tab PO BID PRN Laxative Effect Simple Syrup 15 ml 05/22/20 13:01 07/15/20 05:35 Simple Syrup 15 Ml FEEDTUBE 15 ml PRN PRN Administration Hypoglycemia Simple Syrup 30 ml 05/22/20 13:01 Simple Syrup 15 Ml FEEDTUBE PRN PRN Hypoglycemia Sodium Bicarbonate 325 mg 05/22/20 13:01 Sodium Bicarbonate 325 Mg Tab FEEDTUBE PRN PRN For Clogged Feeding Tube Sodium Chloride 10 ml 05/09/20 22:00 07/21/20 10:32 Sodium Chloride 0.9% 10 Ml Flush Syringe IV 10 ml BID DESIRE Administration Nutrition/Malnutrition Assess - Dietary Evaluation Nutrition/Malnutrition Findings: Nutrition Notes Start: 05/17/20 14:10 Freq: Status: Active Protocol: Document 07/16/20 13:58 AB (Rec: 07/16/20 14:09 AB [id number]) Co-Sign 07/16/20 13:58 MK Nutrition Notes Initial or Follow up Reassessment Current Diagnosis Acute Kidney Injury,Decubitus( Pressure Ulcer),Sepsis, Respiratory Failure Other Pertinent Diagnosis Bilat pneu, COVID-19 (+), EtOH dependence Current Diet Vital HP at 65 ml/hr Labs/Tests Na 132 K 3.4 Cr 0.3 BG 174 Pertinent Medications Reviewed Height 6 ft Weight 107.5 kg Superior Body Weight (kg) 80.90 BMI 32.1 Weight Status Obese Subjective/Other Information F/U for TF start/tolerance. Observed pt TF running at goal rate. Pt is no longer on vent . Percent of energy/protein needs met: 91%/100% Burn Absent Trauma Absent GI Symptoms None Current % PO Negligible Minimum of two criteria No physical signs of malnutrition #2 Nutrition Diagnosis Increased nutrient needs ( specify in comment below) Diagnosis Progress(for reassessment Continues documentation) #1 Nutrition Diagnosis Inadequate oral intake Diagnosis Progress(for reassessment Continues documentation) Is patient on ventilator? No Is Patient Ambulatory and/or Out of Bed No REE-([place]-confined to bed) 2365.212 Kcal/Kg value to use for calculation 16 Approximate Energy Requirements Using 1720 kcal/Kg Calculation Used for Recommendations Kcal/kg Additional Notes Protein: 134-161 g (1.25-1.5 g /kg) Fluid: 1 ml/kcal Nutrition Intervention Change Diet Order: Continue current TF Nutrition Support: Vital HP at 65ml/hr with 50ml water flush q4h. For hyponatremia flush with 50 ml q6h. Kcal 1,560 Protein (gm) 136 Fluid (mL) 1,304 Goal #1 TF tolerance Goal #2 TF (at goal rate) to meet at least 75% energy and pro needs Anticipated Discharge Needs: Unable to determine at this time Follow-Up By: 07/23/20 Additional Comments F/U for TF tolerance
--- NOTE | 2020-07-21 14:22 | Progress Note ---
Assessment and Plan Cultures: Blood culture 04/28/2020 no growth today SARS CoV2 PCR positive Sputum and urine culture with no significant growth Blood culture 07/13/2020 Pseudomonas species Assessment: 50 years old male with history of alcohol dependence and obesity admitted on 05/09/2020 due to 5-day history of generalized malaise, fatigue, body aches, dyspnea exertion, cough and shortness of breath, tested positive for COVID-19 2 days before admission: #Pseudomonas bacteremia: Awaiting ID and DOLLY. Currently on cefepime, fevers have resolved since initiation of antibiotics. Continue pending results. Possibly from lungs? #VAP: extubated since onset of bacteremia. Given Pseudomonas in the blood and bilateral airspace disease, presumed VAP. Elevated procalcitonin. #Severe sepsis: likely due to bilateral pneumonia from COVID. #COVID-19: Diagnosed in early May, now with negative PCR. #Acute hypoxemic respiratory failure: intubated on 05/22/2020. Extubated 07/13/2020 Recommendations: -Continue cefepime 2 g every 8 hours. Will need 2 weeks of antibiotics total. Ideally could discharge with levofloxacin if sensitive. -Follow up blood culture ID and DOLLY. Likely to appear in labs "scanned reports" Patricia Buchanan MD [facility] O: [phone] F: [phone] Subjective Date of service: 07/21/20 Principal diagnosis: Ac hypoxemic resp failure; COVID-19; Severe Sepsis; Shaggy PNA; Alcohol Abuse Interval history: Afebrile, no acute changes. Still awaiting finalization of blood cultures. Currently on high flow nasal cannula. Imaging personally reviewed: Chest x-ray: Stable diffuse mild airspace disease bilaterally. Objective - Exam Narrative Exam: Physical Exam: Constitutional: Alert, cooperative. No acute distress. On nasal cannula. Head, Ears, Nose: Normocephalic, atraumatic. Eyes: Conjunctivae/corneas clear. No icterus. No ptosis. Neck: Supple, no meningeal signs Oral: dentition fair, no thrush Cardiovascular: S1, S2 normal. Respiratory: Good air entry, clear to auscultation bilaterally GI: Soft, non-tender; bowel sounds normal. No peritoneal signs. Musculoskeletal: No pedal edema, no cyanosis. Skin: No rash or abscess Hem/Lymphatic: No palpable cervical or supraclavicular nodes. Psych: Mood ok. Affect normal Neurological: Awake, alert, oriented. No gross abnormality - Constitutional Vitals: Vital Signs Temp Pulse Resp BP Pulse Ox 97.8 F 118 H 33 H 112/69 92 07/21/20 12:00 07/21/20 13:00 07/21/20 13:00 07/21/20 13:00 07/21/20 13:00 Temperature -Last 24 Hours Temperature 97.8 F Temperature 98.5 F Temperature 98.6 F Temperature 98.8 F Temperature 99.0 F Temperature 98.2 F - Labs CBC & Chem 7: 07/18/20 08:47 07/18/20 08:47 Labs: Abnormal lab results 07/20/20 07/20/20 07/21/20 Range/Units 17:30 23:26 05:03 POC Glucose 141 H 116 H 142 H (70-105) mg/dL
--- NOTE | 2020-07-21 18:27 | Progress Note ---
Assessment and Plan Patient Awake. Having mild increased work of breathing. Patient is on Vapotherm , FIO2 60% and O2 saturation running 99%. Patient afebrile and has leukocytosis. Patients D dimer 2911.42. Ferritin 2088. LDH 601. C reactive protein 2.7. Chest xray 05/17/20 reported Persistent diffuse patchy bilateral airspace disease. Apparent interval worsening Repeat chest xray 07/19/20 reported Bilateral pulmonary opacities persist. No pneumothorax. Patient finished course of REMDESIVIR, ceftrioxane and zithromax . Chest xray done to day 07/21/20 reported Stable diffuse mild airspace disease bilaterally. Patient is on methylprednisone Cefepime,and S/C Lovenox therapeutic dose and Prevacid. I have seen the patient in IM. I spent critical care time of 35 minutes , Reviewing the chart,examining patient, Review labs , chest xray , talking to the respiratory therapy and nursing staff and work out plan of treatment in this critically sick patient. - Patient Problems (1) Acute respiratory failure due to COVID-19 Current Visit: Yes Status: Acute Plan to address problem: Patient is on vapotherm FIO2 60%. Continue solumedrol. Continue cefepime, Convert aerosol treatments to metered dose inhalers Continue S/C Lovenox.Therapeutic dose. Continue prevacid. Patient finished course of REMDESIVIR, Ceftrioxana and zithromax. (2) Bilateral pneumonia Current Visit: Yes Status: Acute Plan to address problem: Patient is on cefepime. (3) Acute kidney injury (SEN) with acute tubular necrosis (ATN) Current Visit: Yes Status: Acute Plan to address problem: Management as per nephrology. (4) Alcohol dependence Current Visit: Yes Status: Acute Qualifiers: Substance use status: uncomplicated Qualified Code(s): F10.20 - Alcohol dependence, uncomplicated Plan to address problem: Management as per primary care. (5) Elevated liver function tests Current Visit: Yes Status: Acute Plan to address problem: Liver enzymes elevated either from his alcoholic abuse or from COVID 19 infection. Subjective Date of service: 07/21/20 Principal diagnosis: Ac hypoxemic resp failure; COVID-19; Severe Sepsis; Shaggy PNA; Alcohol Abuse Interval history: Patient Awake. Having mild increased work of breathing. Patient is on Vapotherm , FIO2 60% and O2 saturation running 99%. Patient afebrile and has leukocytosis. Patients D dimer 2911.42. Ferritin 2088. LDH 601. C reactive protein 2.7. Chest xray 05/17/20 reported Persistent diffuse patchy bilateral airspace disease. Apparent interval worsening Repeat chest xray 07/19/20 reported Bilateral pulmonary opacities persist. No pneumothorax. Patient finished course of REMDESIVIR, ceftrioxane and zithromax . Chest xray done to day 07/21/20 reported Stable diffuse mild airspace disease bilaterally. Patient is on methylprednisone Cefepime,and S/C Lovenox therapeutic dose and Prevacid. Objective Vital Signs - 12hr 07/21/20 07/21/20 07/21/20 07:00 08:00 08:07 Temperature 98.5 F Pulse Rate 104 H 104 H Respiratory 29 H 34 H Rate Blood Pressure 122/76 116/79 O2 Sat by Pulse 98 95 97 Oximetry 07/21/20 07/21/20 07/21/20 09:00 10:00 11:00 Temperature Pulse Rate 120 H 119 H 120 H Respiratory 23 32 H 34 H Rate Blood Pressure 115/71 115/71 124/76 O2 Sat by Pulse 87 97 89 Oximetry 07/21/20 07/21/20 07/21/20 12:00 12:39 13:00 Temperature 97.8 F Pulse Rate 122 H 118 H Respiratory 24 33 H Rate Blood Pressure 120/63 112/69 O2 Sat by Pulse 86 96 92 Oximetry 07/21/20 07/21/20 07/21/20 14:00 15:00 15:03 Temperature Pulse Rate 115 H 117 H Respiratory 29 H 30 H Rate Blood Pressure 117/61 115/67 O2 Sat by Pulse 94 92 97 Oximetry 07/21/20 07/21/20 16:00 17:00 Temperature 98.3 F Pulse Rate 115 H 110 H Respiratory 23 19 Rate Blood Pressure 116/71 106/64 O2 Sat by Pulse 98 Oximetry Constitutional: no acute distress, alert, other (middle aged obese male with mi ldly increased respiratory effort at rest ) Eyes: non-icteric ENT: oropharynx moist, other (extubated) Neck: supple, no JVD Effort: mildly labored Ascultation: Bilateral: diminished breath sounds, rhonchi (scant), other (right chest tube) Percussion: Bilateral: not dull Cardiovascular: regular rate and rhythm, other (No R/M) Gastrointestinal: normoactive bowel sounds, soft, non-tender, non-distended (protuberant), other (distended and firm) Integumentary: normal Extremities: no cyanosis, no edema, pulses normal, no ischemia or petechiae Neurologic: non-focal exam (non focal grossly; weak), pupils equal and round, CN II-XII normal, motor strength normal and (very weak ) Psychiatric: mood appropriate, affect normal CBC and BMP: 07/18/20 08:47 07/18/20 08:47 ABG, PT/INR, D-dimer: ABG ABG pH 7.477 (7.320-7.450) H 07/13/20 13:52 POC ABG pCO2 54.4 mmHg (32.0-48.0) H 07/13/20 13:52 ABG pCO2 53.1 mm Hg 07/08/20 Unknown POC ABG pO2 126.8 mmHg (83-108) H 07/13/20 13:52 ABG pO2 75.3 mm Hg (80.0-90.0) L 07/08/20 Unknown POC ABG HCO3 39.3 07/13/20 13:52 ABG O2 Saturation 96.5 % (95.0-99.0) 07/08/20 Unknown PT/INR, D-dimer PT 11.8 Sec. (12.2-14.9) L 06/22/20 14:29 INR 0.88 (0.87-1.13) 06/22/20 14:29 D-Dimer 1887.82 ng/mlDDU (0-234) H 05/20/20 08:16 Abnormal lab findings: Abnormal Labs 05/09/20 05/09/20 05/09/20 12:59 12:59 12:59 WBC 11.8 H RBC Hgb Hct MCV 96 H MCH 34 H MCHC 35 H RDW Lymph % (Auto) 6.9 L [place] % (Auto) Lymph # (Auto) 0.8 L [place] # (Auto) Baso # (Auto) Seg Neutrophils % 87.5 H Seg Neuts % (Manual) Lymphocytes % (Manual) Nucleated RBC % Seg Neutrophils # 10.3 H Seg Neutrophils # Man Lymphocytes # (Manual) Monocytes # (Manual) Eosinophils # (Manual) PT INR APTT D-Dimer Heparin Anti-Xa Level ABG pH POC ABG pCO2 POC ABG pO2 ABG pO2 ABG HCO3 ABG O2 Saturation ABG Base Excess ABG Hemoglobin ABG Oxyhemoglobin ABG Sodium ABG Potassium ABG Chloride ABG Glucose Oxyhemoglobin Carboxyhemoglobin Sodium 130 L Potassium 3.5 L Chloride 86.4 L Carbon Dioxide BUN 33 H Creatinine 2.3 H Glucose 156 H POC Glucose Lactic Acid Calcium Magnesium Ferritin Total Bilirubin 3.40 H Direct Bilirubin 1.7 H AST 385 H ALT 134 H Alkaline Phosphatase Lactate Dehydrogenase C-Reactive Protein Total Protein Albumin 3.0 L Triglycerides Lipase Arterial Blood Glucose Arterial Blood Ionized Calcium Urine WBC (Auto) Coronavirus (PCR) SARS-CoV-2 IgG Ab Crossmatch 05/09/20 05/09/20 05/09/20 12:59 12:59 12:59 WBC RBC Hgb Hct MCV MCH MCHC RDW Lymph % (Auto) [place] % (Auto) Lymph # (Auto) [place] # (Auto) Baso # (Auto) Seg Neutrophils % Seg Neuts % (Manual) Lymphocytes % (Manual) Nucleated RBC % Seg Neutrophils # Seg Neutrophils # Man Lymphocytes # (Manual) Monocytes # (Manual) Eosinophils # (Manual) PT INR APTT D-Dimer 3242.51 H Heparin Anti-Xa Level ABG pH POC ABG pCO2 POC ABG pO2 ABG pO2 ABG HCO3 ABG O2 Saturation ABG Base Excess ABG Hemoglobin ABG Oxyhemoglobin ABG Sodium ABG Potassium ABG Chloride ABG Glucose Oxyhemoglobin Carboxyhemoglobin Sodium Potassium Chloride Carbon Dioxide BUN Creatinine Glucose 158 H POC Glucose Lactic Acid 3.50 H* Calcium Magnesium Ferritin Total Bilirubin Direct Bilirubin AST ALT Alkaline Phosphatase Lactate Dehydrogenase 2166 H C-Reactive Protein 39.00 H Total Protein Albumin Triglycerides Lipase Arterial Blood Glucose Arterial Blood Ionized Calcium Urine WBC (Auto) Coronavirus (PCR) SARS-CoV-2 IgG Ab Crossmatch 05/09/20 05/09/20 05/09/20 12:59 14:20 14:20 WBC RBC Hgb Hct MCV MCH MCHC RDW Lymph % (Auto) [place] % (Auto) Lymph # (Auto) [place] # (Auto) Baso # (Auto) Seg Neutrophils % Seg Neuts % (Manual) Lymphocytes % (Manual) Nucleated RBC % Seg Neutrophils # Seg Neutrophils # Man Lymphocytes # (Manual) Monocytes # (Manual) Eosinophils # (Manual) PT INR APTT D-Dimer 2861.78 H Heparin Anti-Xa Level ABG pH POC ABG pCO2 POC ABG pO2 ABG pO2 ABG HCO3 ABG O2 Saturation ABG Base Excess ABG Hemoglobin ABG Oxyhemoglobin ABG Sodium ABG Potassium ABG Chloride ABG Glucose Oxyhemoglobin Carboxyhemoglobin Sodium Potassium Chloride Carbon Dioxide BUN Creatinine Glucose POC Glucose Lactic Acid 2.20 H* Calcium Magnesium Ferritin 41309.0 H Total Bilirubin Direct Bilirubin AST ALT Alkaline Phosphatase Lactate Dehydrogenase C-Reactive Protein Total Protein Albumin Triglycerides Lipase Arterial Blood Glucose Arterial Blood Ionized Calcium Urine WBC (Auto) Coronavirus (PCR) SARS-CoV-2 IgG Ab Crossmatch 05/09/20 05/09/20 05/09/20 14:20 14:20 15:56 WBC RBC Hgb Hct MCV MCH MCHC RDW Lymph % (Auto) [place] % (Auto) Lymph # (Auto) [place] # (Auto) Baso # (Auto) Seg Neutrophils % Seg Neuts % (Manual) Lymphocytes % (Manual) Nucleated RBC % Seg Neutrophils # Seg Neutrophils # Man Lymphocytes # (Manual) Monocytes # (Manual) Eosinophils # (Manual) PT INR APTT D-Dimer Heparin Anti-Xa Level ABG pH POC ABG pCO2 POC ABG pO2 57.3 L ABG pO2 ABG HCO3 ABG O2 Saturation ABG Base Excess ABG Hemoglobin ABG Oxyhemoglobin 86.3 L ABG Sodium 129.9 L ABG Potassium ABG Chloride ABG Glucose 146 H Oxyhemoglobin Carboxyhemoglobin Sodium Potassium Chloride Carbon Dioxide BUN Creatinine Glucose 143 H POC Glucose Lactic Acid Calcium Magnesium Ferritin 77548.0 H Total Bilirubin Direct Bilirubin AST ALT Alkaline Phosphatase Lactate Dehydrogenase 1953 H C-Reactive Protein 33.50 H Total Protein Albumin Triglycerides Lipase Arterial Blood Glucose 146 H Arterial Blood Ionized Calcium 3.9 L Urine WBC (Auto) Coronavirus (PCR) SARS-CoV-2 IgG Ab Crossmatch 05/10/20 05/10/20 05/10/20 10:32 10:32 18:50 WBC 15.4 H RBC Hgb Hct MCV 97 H MCH 33 H MCHC RDW 13.1 L Lymph % (Auto) [place] % (Auto) Lymph # (Auto) [place] # (Auto) Baso # (Auto) Seg Neutrophils % Seg Neuts % (Manual) 89.0 H Lymphocytes % (Manual) 8.0 L Nucleated RBC % Seg Neutrophils # Seg Neutrophils # Man 13.7 H Lymphocytes # (Manual) Monocytes # (Manual) Eosinophils # (Manual) PT INR APTT D-Dimer Heparin Anti-Xa Level ABG pH POC ABG pCO2 POC ABG pO2 ABG pO2 ABG HCO3 ABG O2 Saturation ABG Base Excess ABG Hemoglobin ABG Oxyhemoglobin ABG Sodium ABG Potassium ABG Chloride ABG Glucose Oxyhemoglobin Carboxyhemoglobin Sodium 136 L Potassium Chloride 97.4 L Carbon Dioxide BUN 37 H Creatinine 1.7 H Glucose 209 H POC Glucose Lactic Acid Calcium Magnesium Ferritin > 2000.0 H Total Bilirubin Direct Bilirubin AST ALT Alkaline Phosphatase Lactate Dehydrogenase C-Reactive Protein Total Protein Albumin Triglycerides Lipase Arterial Blood Glucose Arterial Blood Ionized Calcium Urine WBC (Auto) Coronavirus (PCR) SARS-CoV-2 IgG Ab Crossmatch 05/10/20 05/10/20 05/10/20 18:50 19:00 Unknown WBC RBC Hgb Hct MCV MCH MCHC RDW Lymph % (Auto) [place] % (Auto) Lymph # (Auto) [place] # (Auto) Baso # (Auto) Seg Neutrophils % Seg Neuts % (Manual) Lymphocytes % (Manual) Nucleated RBC % Seg Neutrophils # Seg Neutrophils # Man Lymphocytes # (Manual) Monocytes # (Manual) Eosinophils # (Manual) PT INR APTT D-Dimer > 43286 H Heparin Anti-Xa Level ABG pH POC ABG pCO2 POC ABG pO2 ABG pO2 ABG HCO3 ABG O2 Saturation ABG Base Excess ABG Hemoglobin ABG Oxyhemoglobin ABG Sodium ABG Potassium ABG Chloride ABG Glucose Oxyhemoglobin Carboxyhemoglobin Sodium Potassium Chloride Carbon Dioxide BUN Creatinine Glucose POC Glucose Lactic Acid Calcium Magnesium Ferritin Total Bilirubin Direct Bilirubin AST ALT Alkaline Phosphatase Lactate Dehydrogenase 1879 H C-Reactive Protein 24.80 H Total Protein Albumin Triglycerides Lipase Arterial Blood Glucose Arterial Blood Ionized Calcium Urine WBC (Auto) 11.0 H Coronavirus (PCR) SARS-CoV-2 IgG Ab Crossmatch 05/10/20 05/11/20 05/11/20 Unknown 07:30 07:30 WBC RBC Hgb Hct MCV MCH MCHC RDW Lymph % (Auto) [place] % (Auto) Lymph # (Auto) [place] # (Auto) Baso # (Auto) Seg Neutrophils % Seg Neuts % (Manual) Lymphocytes % (Manual) Nucleated RBC % Seg Neutrophils # Seg Neutrophils # Man Lymphocytes # (Manual) Monocytes # (Manual) Eosinophils # (Manual) PT INR APTT D-Dimer > 2000 H Heparin Anti-Xa Level ABG pH POC ABG pCO2 POC ABG pO2 ABG pO2 ABG HCO3 ABG O2 Saturation ABG Base Excess ABG Hemoglobin ABG Oxyhemoglobin ABG Sodium ABG Potassium ABG Chloride ABG Glucose Oxyhemoglobin Carboxyhemoglobin Sodium Potassium Chloride 96.3 L Carbon Dioxide BUN 36 H Creatinine Glucose 161 H POC Glucose Lactic Acid Calcium 8.3 L Magnesium Ferritin Total Bilirubin 1.50 H Direct Bilirubin 0.6 H AST 178 H ALT 111 H Alkaline Phosphatase Lactate Dehydrogenase C-Reactive Protein Total Protein Albumin 3.0 L Triglycerides Lipase Arterial Blood Glucose Arterial Blood Ionized Calcium Urine WBC (Auto) Coronavirus (PCR) Positive A SARS-CoV-2 IgG Ab Crossmatch 05/11/20 05/11/20 05/11/20 07:30 07:30 07:30 WBC RBC Hgb Hct MCV MCH MCHC RDW Lymph % (Auto) [place] % (Auto) Lymph # (Auto) [place] # (Auto) Baso # (Auto) Seg Neutrophils % Seg Neuts % (Manual) Lymphocytes % (Manual) Nucleated RBC % Seg Neutrophils # Seg Neutrophils # Man Lymphocytes # (Manual) Monocytes # (Manual) Eosinophils # (Manual) PT INR APTT D-Dimer Heparin Anti-Xa Level ABG pH POC ABG pCO2 POC ABG pO2 ABG pO2 ABG HCO3 ABG O2 Saturation ABG Base Excess ABG Hemoglobin ABG Oxyhemoglobin ABG Sodium ABG Potassium ABG Chloride ABG Glucose Oxyhemoglobin Carboxyhemoglobin Sodium Potassium Chloride Carbon Dioxide BUN Creatinine Glucose POC Glucose Lactic Acid Calcium Magnesium Ferritin 43275.0 H Total Bilirubin Direct Bilirubin AST ALT Alkaline Phosphatase Lactate Dehydrogenase 1523 H C-Reactive Protein 12.90 H Total Protein Albumin Triglycerides Lipase Arterial Blood Glucose Arterial Blood Ionized Calcium Urine WBC (Auto) Coronavirus (PCR) SARS-CoV-2 IgG Ab Reactive A Crossmatch 05/13/20 05/13/20 05/15/20 05:20 05:20 08:15 WBC RBC Hgb Hct MCV MCH MCHC RDW Lymph % (Auto) [place] % (Auto) Lymph # (Auto) [place] # (Auto) Baso # (Auto) Seg Neutrophils % Seg Neuts % (Manual) Lymphocytes % (Manual) Nucleated RBC % Seg Neutrophils # Seg Neutrophils # Man Lymphocytes # (Manual) Monocytes # (Manual) Eosinophils # (Manual) PT INR APTT D-Dimer > 20033 H 5318.28 H Heparin Anti-Xa Level ABG pH POC ABG pCO2 POC ABG pO2 ABG pO2 ABG HCO3 ABG O2 Saturation ABG Base Excess ABG Hemoglobin ABG Oxyhemoglobin ABG Sodium ABG Potassium ABG Chloride ABG Glucose Oxyhemoglobin Carboxyhemoglobin Sodium Potassium Chloride Carbon Dioxide 32 H BUN 30 H Creatinine Glucose 156 H POC Glucose Lactic Acid Calcium Magnesium 2.60 H Ferritin Total Bilirubin 1.40 H Direct Bilirubin AST 121 H ALT 119 H Alkaline Phosphatase Lactate Dehydrogenase 957 H C-Reactive Protein 4.00 H Total Protein Albumin 3.0 L Triglycerides Lipase Arterial Blood Glucose Arterial Blood Ionized Calcium Urine WBC (Auto) Coronavirus (PCR) SARS-CoV-2 IgG Ab Crossmatch 05/15/20 05/15/20 05/15/20 08:15 08:15 08:15 WBC 12.4 H RBC Hgb Hct MCV 98 H MCH 33 H MCHC RDW Lymph % (Auto) 9.7 L [place] % (Auto) Lymph # (Auto) [place] # (Auto) Baso # (Auto) Seg Neutrophils % 86.8 H Seg Neuts % (Manual) Lymphocytes % (Manual) Nucleated RBC % Seg Neutrophils # 10.8 H Seg Neutrophils # Man Lymphocytes # (Manual) Monocytes # (Manual) Eosinophils # (Manual) PT INR APTT D-Dimer Heparin Anti-Xa Level ABG pH POC ABG pCO2 POC ABG pO2 ABG pO2 ABG HCO3 ABG O2 Saturation ABG Base Excess ABG Hemoglobin ABG Oxyhemoglobin ABG Sodium ABG Potassium ABG Chloride ABG Glucose Oxyhemoglobin Carboxyhemoglobin Sodium Potassium Chloride 94.8 L Carbon Dioxide 32 H BUN 22 H Creatinine Glucose 115 H POC Glucose Lactic Acid Calcium 8.3 L Magnesium Ferritin 2494.0 H Total Bilirubin Direct Bilirubin AST 73 H ALT 121 H Alkaline Phosphatase Lactate Dehydrogenase 835 H C-Reactive Protein 3.40 H Total Protein 6.1 L Albumin 3.0 L Triglycerides Lipase Arterial Blood Glucose Arterial Blood Ionized Calcium Urine WBC (Auto) Coronavirus (PCR) SARS-CoV-2 IgG Ab Crossmatch 05/17/20 05/17/20 05/17/20 05:50 05:50 05:50 WBC RBC Hgb Hct MCV MCH MCHC RDW Lymph % (Auto) [place] % (Auto) Lymph # (Auto) [place] # (Auto) Baso # (Auto) Seg Neutrophils % Seg Neuts % (Manual) Lymphocytes % (Manual) Nucleated RBC % Seg Neutrophils # Seg Neutrophils # Man Lymphocytes # (Manual) Monocytes # (Manual) Eosinophils # (Manual) PT INR APTT D-Dimer 2911.42 H Heparin Anti-Xa Level ABG pH POC ABG pCO2 POC ABG pO2 ABG pO2 ABG HCO3 ABG O2 Saturation ABG Base Excess ABG Hemoglobin ABG Oxyhemoglobin ABG Sodium ABG Potassium ABG Chloride ABG Glucose Oxyhemoglobin Carboxyhemoglobin Sodium 136 L Potassium Chloride 96.0 L Carbon Dioxide 34 H BUN 22 H Creatinine Glucose 140 H POC Glucose Lactic Acid Calcium Magnesium Ferritin 2082.0 H Total Bilirubin Direct Bilirubin AST ALT 75 H Alkaline Phosphatase Lactate Dehydrogenase 601 H C-Reactive Protein 2.70 H Total Protein Albumin 2.9 L Triglycerides Lipase Arterial Blood Glucose Arterial Blood Ionized Calcium Urine WBC (Auto) Coronavirus (PCR) SARS-CoV-2 IgG Ab Crossmatch 05/17/20 05/18/20 05/20/20 05:50 12:22 08:16 WBC RBC Hgb Hct MCV 98 H MCH 33 H MCHC RDW Lymph % (Auto) 8.0 L [place] % (Auto) Lymph # (Auto) 0.8 L [place] # (Auto) Baso # (Auto) Seg Neutrophils % 89.3 H Seg Neuts % (Manual) Lymphocytes % (Manual) Nucleated RBC % Seg Neutrophils # 8.8 H Seg Neutrophils # Man Lymphocytes # (Manual) Monocytes # (Manual) Eosinophils # (Manual) PT INR APTT D-Dimer 1887.82 H Heparin Anti-Xa Level ABG pH POC ABG pCO2 POC ABG pO2 ABG pO2 ABG HCO3 ABG O2 Saturation ABG Base Excess ABG Hemoglobin ABG Oxyhemoglobin ABG Sodium ABG Potassium ABG Chloride ABG Glucose Oxyhemoglobin Carboxyhemoglobin Sodium Potassium Chloride Carbon Dioxide BUN Creatinine Glucose POC Glucose 178 H Lactic Acid Calcium Magnesium Ferritin Total Bilirubin Direct Bilirubin AST ALT Alkaline Phosphatase Lactate Dehydrogenase C-Reactive Protein Total Protein Albumin Triglycerides Lipase Arterial Blood Glucose Arterial Blood Ionized Calcium Urine WBC (Auto) Coronavirus (PCR) SARS-CoV-2 IgG Ab Crossmatch 05/20/20 05/20/20 05/21/20 08:16 08:16 21:10 WBC RBC Hgb Hct MCV MCH MCHC RDW Lymph % (Auto) [place] % (Auto) Lymph # (Auto) [place] # (Auto) Baso # (Auto) Seg Neutrophils % Seg Neuts % (Manual) Lymphocytes % (Manual) Nucleated RBC % Seg Neutrophils # Seg Neutrophils # Man Lymphocytes # (Manual) Monocytes # (Manual) Eosinophils # (Manual) PT INR APTT D-Dimer Heparin Anti-Xa Level ABG pH 7.483 H POC ABG pCO2 POC ABG pO2 ABG pO2 50.0 L ABG HCO3 27.0 H ABG O2 Saturation 86.2 L ABG Base Excess 3.7 H ABG Hemoglobin ABG Oxyhemoglobin ABG Sodium ABG Potassium ABG Chloride ABG Glucose Oxyhemoglobin 84.2 L Carboxyhemoglobin Sodium Potassium Chloride Carbon Dioxide BUN Creatinine Glucose POC Glucose Lactic Acid Calcium Magnesium Ferritin 1960.0 H Total Bilirubin Direct Bilirubin AST ALT Alkaline Phosphatase Lactate Dehydrogenase 705 H C-Reactive Protein 3.10 H Total Protein Albumin Triglycerides Lipase Arterial Blood Glucose Arterial Blood Ionized Calcium Urine WBC (Auto) Coronavirus (PCR) SARS-CoV-2 IgG Ab Crossmatch 05/22/20 05/22/20 05/22/20 04:01 07:53 07:53 WBC 19.2 H RBC Hgb Hct MCV 98 H MCH 34 H MCHC RDW Lymph % (Auto) [place] % (Auto) Lymph # (Auto) [place] # (Auto) Baso # (Auto) Seg Neutrophils % Seg Neuts % (Manual) 96.0 H Lymphocytes % (Manual) 1.0 L Nucleated RBC % Seg Neutrophils # Seg Neutrophils # Man 18.4 H Lymphocytes # (Manual) 0.2 L Monocytes # (Manual) Eosinophils # (Manual) PT INR APTT D-Dimer Heparin Anti-Xa Level ABG pH POC ABG pCO2 53.8 H POC ABG pO2 125.5 H ABG pO2 ABG HCO3 ABG O2 Saturation ABG Base Excess ABG Hemoglobin ABG Oxyhemoglobin ABG Sodium 131.8 L ABG Potassium 4.8 H ABG Chloride 94.0 L ABG Glucose 163 H Oxyhemoglobin Carboxyhemoglobin Sodium 131 L Potassium Chloride 93.4 L Carbon Dioxide BUN 40 H Creatinine Glucose 176 H POC Glucose Lactic Acid Calcium Magnesium 2.70 H Ferritin Total Bilirubin 1.80 H Direct Bilirubin AST 45 H ALT 116 H Alkaline Phosphatase 181 H Lactate Dehydrogenase C-Reactive Protein Total Protein Albumin 2.6 L Triglycerides Lipase Arterial Blood Glucose 163 H Arterial Blood Ionized Calcium 4.5 L Urine WBC (Auto) Coronavirus (PCR) SARS-CoV-2 IgG Ab Crossmatch 05/23/20 05/24/20 05/24/20 04:17 03:07 04:08 WBC RBC Hgb Hct MCV MCH MCHC RDW Lymph % (Auto) [place] % (Auto) Lymph # (Auto) [place] # (Auto) Baso # (Auto) Seg Neutrophils % Seg Neuts % (Manual) Lymphocytes % (Manual) Nucleated RBC % Seg Neutrophils # Seg Neutrophils # Man Lymphocytes # (Manual) Monocytes # (Manual) Eosinophils # (Manual) PT INR APTT D-Dimer Heparin Anti-Xa Level ABG pH 7.328 L POC ABG pCO2 POC ABG pO2 ABG pO2 72.8 L 73.4 L ABG HCO3 31.0 H 34.0 H ABG O2 Saturation 93.5 L ABG Base Excess 3.5 H 7.7 H ABG Hemoglobin 13.3 L 12.1 L ABG Oxyhemoglobin ABG Sodium ABG Potassium ABG Chloride ABG Glucose Oxyhemoglobin 91.5 L 94.3 L Carboxyhemoglobin Sodium Potassium Chloride Carbon Dioxide BUN Creatinine Glucose POC Glucose 155 H Lactic Acid Calcium Magnesium Ferritin Total Bilirubin Direct Bilirubin AST ALT Alkaline Phosphatase Lactate Dehydrogenase C-Reactive Protein Total Protein Albumin Triglycerides Lipase Arterial Blood Glucose Arterial Blood Ionized Calcium Urine WBC (Auto) Coronavirus (PCR) SARS-CoV-2 IgG Ab Crossmatch 05/24/20 05/24/20 05/24/20 09:33 12:21 17:52 WBC RBC Hgb Hct MCV MCH MCHC RDW Lymph % (Auto) [place] % (Auto) Lymph # (Auto) [place] # (Auto) Baso # (Auto) Seg Neutrophils % Seg Neuts % (Manual) Lymphocytes % (Manual) Nucleated RBC % Seg Neutrophils # Seg Neutrophils # Man Lymphocytes # (Manual) Monocytes # (Manual) Eosinophils # (Manual) PT INR APTT D-Dimer Heparin Anti-Xa Level ABG pH POC ABG pCO2 POC ABG pO2 ABG pO2 ABG HCO3 ABG O2 Saturation ABG Base Excess ABG Hemoglobin ABG Oxyhemoglobin ABG Sodium ABG Potassium ABG Chloride ABG Glucose Oxyhemoglobin Carboxyhemoglobin Sodium Potassium Chloride Carbon Dioxide 34 H D BUN 28 H Creatinine 0.7 L Glucose 168 H POC Glucose 173 H 164 H Lactic Acid Calcium Magnesium Ferritin Total Bilirubin Direct Bilirubin AST ALT Alkaline Phosphatase Lactate Dehydrogenase C-Reactive Protein Total Protein Albumin Triglycerides Lipase Arterial Blood Glucose Arterial Blood Ionized Calcium Urine WBC (Auto) Coronavirus (PCR) SARS-CoV-2 IgG Ab Crossmatch 05/24/20 05/25/20 05/25/20 23:47 04:29 05:46 WBC RBC Hgb Hct MCV MCH MCHC RDW Lymph % (Auto) [place] % (Auto) Lymph # (Auto) [place] # (Auto) Baso # (Auto) Seg Neutrophils % Seg Neuts % (Manual) Lymphocytes % (Manual) Nucleated RBC % Seg Neutrophils # Seg Neutrophils # Man Lymphocytes # (Manual) Monocytes # (Manual) Eosinophils # (Manual) PT INR APTT D-Dimer Heparin Anti-Xa Level ABG pH POC ABG pCO2 68.6 H POC ABG pO2 ABG pO2 ABG HCO3 ABG O2 Saturation ABG Base Excess ABG Hemoglobin ABG Oxyhemoglobin ABG Sodium ABG Potassium 4.7 H ABG Chloride ABG Glucose 226 H Oxyhemoglobin Carboxyhemoglobin Sodium Potassium Chloride Carbon Dioxide BUN Creatinine Glucose POC Glucose 171 H 201 H Lactic Acid Calcium Magnesium Ferritin Total Bilirubin Direct Bilirubin AST ALT Alkaline Phosphatase Lactate Dehydrogenase C-Reactive Protein Total Protein Albumin Triglycerides Lipase Arterial Blood Glucose 226 H Arterial Blood Ionized Calcium Urine WBC (Auto) Coronavirus (PCR) SARS-CoV-2 IgG Ab Crossmatch 05/25/20 05/25/20 05/25/20 08:37 08:37 12:38 WBC 12.0 H RBC 3.64 L Hgb Hct MCV 99 H MCH 33 H MCHC RDW Lymph % (Auto) [place] % (Auto) Lymph # (Auto) [place] # (Auto) Baso # (Auto) Seg Neutrophils % Seg Neuts % (Manual) Lymphocytes % (Manual) Nucleated RBC % Seg Neutrophils # Seg Neutrophils # Man Lymphocytes # (Manual) Monocytes # (Manual) Eosinophils # (Manual) PT INR APTT D-Dimer Heparin Anti-Xa Level ABG pH POC ABG pCO2 POC ABG pO2 ABG pO2 ABG HCO3 ABG O2 Saturation ABG Base Excess ABG Hemoglobin ABG Oxyhemoglobin ABG Sodium ABG Potassium ABG Chloride ABG Glucose Oxyhemoglobin Carboxyhemoglobin Sodium Potassium Chloride 97.3 L Carbon Dioxide 35 H BUN 25 H Creatinine 0.7 L Glucose 191 H POC Glucose 182 H Lactic Acid Calcium Magnesium Ferritin Total Bilirubin Direct Bilirubin AST ALT Alkaline Phosphatase Lactate Dehydrogenase C-Reactive Protein Total Protein Albumin Triglycerides Lipase Arterial Blood Glucose Arterial Blood Ionized Calcium Urine WBC (Auto) Coronavirus (PCR) SARS-CoV-2 IgG Ab Crossmatch 05/25/20 05/26/20 05/26/20 18:16 00:06 04:50 WBC RBC Hgb Hct MCV MCH MCHC RDW Lymph % (Auto) [place] % (Auto) Lymph # (Auto) [place] # (Auto) Baso # (Auto) Seg Neutrophils % Seg Neuts % (Manual) Lymphocytes % (Manual) Nucleated RBC % Seg Neutrophils # Seg Neutrophils # Man Lymphocytes # (Manual) Monocytes # (Manual) Eosinophils # (Manual) PT INR APTT D-Dimer Heparin Anti-Xa Level ABG pH POC ABG pCO2 POC ABG pO2 ABG pO2 221.5 H ABG HCO3 40.4 H ABG O2 Saturation 99.3 H ABG Base Excess 12.8 H ABG Hemoglobin 10.4 L ABG Oxyhemoglobin ABG Sodium ABG Potassium ABG Chloride ABG Glucose Oxyhemoglobin Carboxyhemoglobin Sodium Potassium Chloride Carbon Dioxide BUN Creatinine Glucose POC Glucose 176 H 152 H Lactic Acid Calcium Magnesium Ferritin Total Bilirubin Direct Bilirubin AST ALT Alkaline Phosphatase Lactate Dehydrogenase C-Reactive Protein Total Protein Albumin Triglycerides Lipase Arterial Blood Glucose Arterial Blood Ionized Calcium Urine WBC (Auto) Coronavirus (PCR) SARS-CoV-2 IgG Ab Crossmatch 05/26/20 05/26/20 05/26/20 06:11 07:51 07:51 WBC 13.4 H RBC 3.64 L Hgb Hct MCV 98 H MCH 33 H MCHC RDW Lymph % (Auto) [place] % (Auto) Lymph # (Auto) [place] # (Auto) Baso # (Auto) Seg Neutrophils % Seg Neuts % (Manual) Lymphocytes % (Manual) Nucleated RBC % Seg Neutrophils # Seg Neutrophils # Man Lymphocytes # (Manual) Monocytes # (Manual) Eosinophils # (Manual) PT INR APTT D-Dimer Heparin Anti-Xa Level ABG pH POC ABG pCO2 POC ABG pO2 ABG pO2 ABG HCO3 ABG O2 Saturation ABG Base Excess ABG Hemoglobin ABG Oxyhemoglobin ABG Sodium ABG Potassium ABG Chloride ABG Glucose Oxyhemoglobin Carboxyhemoglobin Sodium Potassium Chloride 96.6 L Carbon Dioxide 39 H BUN 29 H Creatinine 0.7 L Glucose 174 H POC Glucose 165 H Lactic Acid Calcium Magnesium Ferritin Total Bilirubin Direct Bilirubin AST ALT Alkaline Phosphatase Lactate Dehydrogenase C-Reactive Protein Total Protein Albumin Triglycerides Lipase Arterial Blood Glucose Arterial Blood Ionized Calcium Urine WBC (Auto) Coronavirus (PCR) SARS-CoV-2 IgG Ab Crossmatch 05/26/20 05/27/20 05/27/20 23:23 03:43 05:29 WBC RBC Hgb Hct MCV MCH MCHC RDW Lymph % (Auto) [place] % (Auto) Lymph # (Auto) [place] # (Auto) Baso # (Auto) Seg Neutrophils % Seg Neuts % (Manual) Lymphocytes % (Manual) Nucleated RBC % Seg Neutrophils # Seg Neutrophils # Man Lymphocytes # (Manual) Monocytes # (Manual) Eosinophils # (Manual) PT INR APTT D-Dimer Heparin Anti-Xa Level ABG pH 7.480 H POC ABG pCO2 52.4 H POC ABG pO2 61.4 L ABG pO2 ABG HCO3 ABG O2 Saturation ABG Base Excess ABG Hemoglobin ABG Oxyhemoglobin ABG Sodium 134.9 L ABG Potassium ABG Chloride 95.0 L ABG Glucose 221 H Oxyhemoglobin Carboxyhemoglobin Sodium Potassium Chloride Carbon Dioxide BUN Creatinine Glucose POC Glucose 169 H 227 H Lactic Acid Calcium Magnesium Ferritin Total Bilirubin Direct Bilirubin AST ALT Alkaline Phosphatase Lactate Dehydrogenase C-Reactive Protein Total Protein Albumin Triglycerides Lipase Arterial Blood Glucose 221 H Arterial Blood Ionized Calcium 4.5 L Urine WBC (Auto) Coronavirus (PCR) SARS-CoV-2 IgG Ab Crossmatch 05/27/20 05/27/20 05/27/20 07:19 12:18 13:50 WBC RBC Hgb Hct MCV MCH MCHC RDW Lymph % (Auto) [place] % (Auto) Lymph # (Auto) [place] # (Auto) Baso # (Auto) Seg Neutrophils % Seg Neuts % (Manual) Lymphocytes % (Manual) Nucleated RBC % Seg Neutrophils # Seg Neutrophils # Man Lymphocytes # (Manual) Monocytes # (Manual) Eosinophils # (Manual) PT INR APTT D-Dimer Heparin Anti-Xa Level ABG pH POC ABG pCO2 POC ABG pO2 ABG pO2 ABG HCO3 ABG O2 Saturation ABG Base Excess ABG Hemoglobin ABG Oxyhemoglobin ABG Sodium ABG Potassium ABG Chloride ABG Glucose Oxyhemoglobin Carboxyhemoglobin Sodium Potassium Chloride Carbon Dioxide BUN Creatinine Glucose POC Glucose 114 H 148 H Lactic Acid Calcium Magnesium Ferritin Total Bilirubin Direct Bilirubin AST ALT Alkaline Phosphatase Lactate Dehydrogenase C-Reactive Protein Total Protein Albumin Triglycerides 247 H Lipase Arterial Blood Glucose Arterial Blood Ionized Calcium Urine WBC (Auto) Coronavirus (PCR) SARS-CoV-2 IgG Ab Crossmatch 05/28/20 05/28/20 05/28/20 00:13 04:16 05:22 WBC RBC Hgb Hct MCV MCH MCHC RDW Lymph % (Auto) [place] % (Auto) Lymph # (Auto) [place] # (Auto) Baso # (Auto) Seg Neutrophils % Seg Neuts % (Manual) Lymphocytes % (Manual) Nucleated RBC % Seg Neutrophils # Seg Neutrophils # Man Lymphocytes # (Manual) Monocytes # (Manual) Eosinophils # (Manual) PT INR APTT D-Dimer Heparin Anti-Xa Level ABG pH POC ABG pCO2 64.4 H POC ABG pO2 60.5 L ABG pO2 ABG HCO3 ABG O2 Saturation ABG Base Excess ABG Hemoglobin ABG Oxyhemoglobin ABG Sodium ABG Potassium ABG Chloride 95.0 L ABG Glucose 209 H Oxyhemoglobin Carboxyhemoglobin Sodium Potassium Chloride Carbon Dioxide BUN Creatinine Glucose POC Glucose 155 H 186 H Lactic Acid Calcium Magnesium Ferritin Total Bilirubin Direct Bilirubin AST ALT Alkaline Phosphatase Lactate Dehydrogenase C-Reactive Protein Total Protein Albumin Triglycerides Lipase Arterial Blood Glucose 209 H Arterial Blood Ionized Calcium Urine WBC (Auto) Coronavirus (PCR) SARS-CoV-2 IgG Ab Crossmatch 05/28/20 05/28/20 05/29/20 12:45 17:39 00:37 WBC RBC Hgb Hct MCV MCH MCHC RDW Lymph % (Auto) [place] % (Auto) Lymph # (Auto) [place] # (Auto) Baso # (Auto) Seg Neutrophils % Seg Neuts % (Manual) Lymphocytes % (Manual) Nucleated RBC % Seg Neutrophils # Seg Neutrophils # Man Lymphocytes # (Manual) Monocytes # (Manual) Eosinophils # (Manual) PT INR APTT D-Dimer Heparin Anti-Xa Level ABG pH POC ABG pCO2 POC ABG pO2 ABG pO2 ABG HCO3 ABG O2 Saturation ABG Base Excess ABG Hemoglobin ABG Oxyhemoglobin ABG Sodium ABG Potassium ABG Chloride ABG Glucose Oxyhemoglobin Carboxyhemoglobin Sodium Potassium Chloride Carbon Dioxide BUN Creatinine Glucose POC Glucose 143 H 164 H 221 H Lactic Acid Calcium Magnesium Ferritin Total Bilirubin Direct Bilirubin AST ALT Alkaline Phosphatase Lactate Dehydrogenase C-Reactive Protein Total Protein Albumin Triglycerides Lipase Arterial Blood Glucose Arterial Blood Ionized Calcium Urine WBC (Auto) Coronavirus (PCR) SARS-CoV-2 IgG Ab Crossmatch 05/29/20 05/29/20 05/29/20 04:15 05:33 12:34 WBC RBC Hgb Hct MCV MCH MCHC RDW Lymph % (Auto) [place] % (Auto) Lymph # (Auto) [place] # (Auto) Baso # (Auto) Seg Neutrophils % Seg Neuts % (Manual) Lymphocytes % (Manual) Nucleated RBC % Seg Neutrophils # Seg Neutrophils # Man Lymphocytes # (Manual) Monocytes # (Manual) Eosinophils # (Manual) PT INR APTT D-Dimer Heparin Anti-Xa Level ABG pH 7.463 H POC ABG pCO2 56.3 H POC ABG pO2 81.2 L ABG pO2 ABG HCO3 ABG O2 Saturation ABG Base Excess ABG Hemoglobin ABG Oxyhemoglobin ABG Sodium ABG Potassium ABG Chloride 96.0 L ABG Glucose 194 H Oxyhemoglobin Carboxyhemoglobin Sodium Potassium Chloride Carbon Dioxide BUN Creatinine Glucose POC Glucose 133 H 221 H Lactic Acid Calcium Magnesium Ferritin Total Bilirubin Direct Bilirubin AST ALT Alkaline Phosphatase Lactate Dehydrogenase C-Reactive Protein Total Protein Albumin Triglycerides Lipase Arterial Blood Glucose 194 H Arterial Blood Ionized Calcium 4.5 L Urine WBC (Auto) Coronavirus (PCR) SARS-CoV-2 IgG Ab Crossmatch 05/29/20 05/30/20 05/30/20 18:07 00:12 05:38 WBC RBC Hgb Hct MCV MCH MCHC RDW Lymph % (Auto) [place] % (Auto) Lymph # (Auto) [place] # (Auto) Baso # (Auto) Seg Neutrophils % Seg Neuts % (Manual) Lymphocytes % (Manual) Nucleated RBC % Seg Neutrophils # Seg Neutrophils # Man Lymphocytes # (Manual) Monocytes # (Manual) Eosinophils # (Manual) PT INR APTT D-Dimer Heparin Anti-Xa Level ABG pH POC ABG pCO2 POC ABG pO2 ABG pO2 ABG HCO3 ABG O2 Saturation ABG Base Excess ABG Hemoglobin ABG Oxyhemoglobin ABG Sodium ABG Potassium ABG Chloride ABG Glucose Oxyhemoglobin Carboxyhemoglobin Sodium Potassium Chloride Carbon Dioxide BUN Creatinine Glucose POC Glucose 162 H 190 H 208 H Lactic Acid Calcium Magnesium Ferritin Total Bilirubin Direct Bilirubin AST ALT Alkaline Phosphatase Lactate Dehydrogenase C-Reactive Protein Total Protein Albumin Triglycerides Lipase Arterial Blood Glucose Arterial Blood Ionized Calcium Urine WBC (Auto) Coronavirus (PCR) SARS-CoV-2 IgG Ab Crossmatch 05/30/20 05/30/20 05/30/20 09:30 11:35 11:54 WBC 12.4 H RBC 3.48 L Hgb 11.3 L Hct 34.6 L MCV 99 H MCH 33 H MCHC RDW Lymph % (Auto) [place] % (Auto) Lymph # (Auto) [place] # (Auto) Baso # (Auto) Seg Neutrophils % Seg Neuts % (Manual) Lymphocytes % (Manual) Nucleated RBC % Seg Neutrophils # Seg Neutrophils # Man Lymphocytes # (Manual) Monocytes # (Manual) Eosinophils # (Manual) PT INR APTT D-Dimer Heparin Anti-Xa Level ABG pH 7.455 H POC ABG pCO2 57.5 H POC ABG pO2 81.5 L ABG pO2 ABG HCO3 ABG O2 Saturation ABG Base Excess ABG Hemoglobin ABG Oxyhemoglobin ABG Sodium ABG Potassium ABG Chloride 96.0 L ABG Glucose 204 H Oxyhemoglobin Carboxyhemoglobin Sodium Potassium Chloride Carbon Dioxide BUN Creatinine Glucose POC Glucose 183 H Lactic Acid Calcium Magnesium Ferritin Total Bilirubin Direct Bilirubin AST ALT Alkaline Phosphatase Lactate Dehydrogenase C-Reactive Protein Total Protein Albumin Triglycerides Lipase Arterial Blood Glucose 204 H Arterial Blood Ionized Calcium Urine WBC (Auto) Coronavirus (PCR) SARS-CoV-2 IgG Ab Crossmatch 05/30/20 05/31/20 05/31/20 18:01 00:10 03:22 WBC RBC Hgb Hct MCV MCH MCHC RDW Lymph % (Auto) [place] % (Auto) Lymph # (Auto) [place] # (Auto) Baso # (Auto) Seg Neutrophils % Seg Neuts % (Manual) Lymphocytes % (Manual) Nucleated RBC % Seg Neutrophils # Seg Neutrophils # Man Lymphocytes # (Manual) Monocytes # (Manual) Eosinophils # (Manual) PT INR APTT D-Dimer Heparin Anti-Xa Level ABG pH POC ABG pCO2 60.4 H POC ABG pO2 71.5 L ABG pO2 ABG HCO3 ABG O2 Saturation ABG Base Excess ABG Hemoglobin ABG Oxyhemoglobin ABG Sodium ABG Potassium ABG Chloride 96.0 L ABG Glucose 169 H Oxyhemoglobin Carboxyhemoglobin Sodium Potassium Chloride Carbon Dioxide BUN Creatinine Glucose POC Glucose 184 H 135 H Lactic Acid Calcium Magnesium Ferritin Total Bilirubin Direct Bilirubin AST ALT Alkaline Phosphatase Lactate Dehydrogenase C-Reactive Protein Total Protein Albumin Triglycerides Lipase Arterial Blood Glucose 169 H Arterial Blood Ionized Calcium 4.5 L Urine WBC (Auto) Coronavirus (PCR) SARS-CoV-2 IgG Ab Crossmatch 05/31/20 05/31/20 05/31/20 05:24 11:18 14:41 WBC RBC Hgb Hct MCV MCH MCHC RDW Lymph % (Auto) [place] % (Auto) Lymph # (Auto) [place] # (Auto) Baso # (Auto) Seg Neutrophils % Seg Neuts % (Manual) Lymphocytes % (Manual) Nucleated RBC % Seg Neutrophils # Seg Neutrophils # Man Lymphocytes # (Manual) Monocytes # (Manual) Eosinophils # (Manual) PT INR APTT D-Dimer Heparin Anti-Xa Level ABG pH POC ABG pCO2 POC ABG pO2 ABG pO2 ABG HCO3 ABG O2 Saturation ABG Base Excess ABG Hemoglobin ABG Oxyhemoglobin ABG Sodium ABG Potassium ABG Chloride ABG Glucose Oxyhemoglobin Carboxyhemoglobin Sodium Potassium Chloride 96.8 L Carbon Dioxide 37 H BUN 31 H Creatinine 0.6 L Glucose 213 H POC Glucose 164 H 208 H Lactic Acid Calcium Magnesium Ferritin Total Bilirubin Direct Bilirubin AST ALT Alkaline Phosphatase Lactate Dehydrogenase C-Reactive Protein Total Protein Albumin Triglycerides Lipase Arterial Blood Glucose Arterial Blood Ionized Calcium Urine WBC (Auto) Coronavirus (PCR) SARS-CoV-2 IgG Ab Crossmatch 05/31/20 05/31/20 06/01/20 17:37 23:47 03:48 WBC RBC Hgb Hct MCV MCH MCHC RDW Lymph % (Auto) [place] % (Auto) Lymph # (Auto) [place] # (Auto) Baso # (Auto) Seg Neutrophils % Seg Neuts % (Manual) Lymphocytes % (Manual) Nucleated RBC % Seg Neutrophils # Seg Neutrophils # Man Lymphocytes # (Manual) Monocytes # (Manual) Eosinophils # (Manual) PT INR APTT D-Dimer Heparin Anti-Xa Level ABG pH POC ABG pCO2 59.7 H POC ABG pO2 73.9 L ABG pO2 ABG HCO3 ABG O2 Saturation ABG Base Excess ABG Hemoglobin ABG Oxyhemoglobin ABG Sodium ABG Potassium ABG Chloride 95.0 L ABG Glucose 256 H Oxyhemoglobin Carboxyhemoglobin Sodium Potassium Chloride Carbon Dioxide BUN Creatinine Glucose POC Glucose 168 H 178 H Lactic Acid Calcium Magnesium Ferritin Total Bilirubin Direct Bilirubin AST ALT Alkaline Phosphatase Lactate Dehydrogenase C-Reactive Protein Total Protein Albumin Triglycerides Lipase Arterial Blood Glucose 256 H Arterial Blood Ionized Calcium Urine WBC (Auto) Coronavirus (PCR) SARS-CoV-2 IgG Ab Crossmatch 06/01/20 06/01/20 06/01/20 05:01 07:47 07:47 WBC 14.4 H RBC 3.46 L Hgb 11.1 L Hct 34.3 L MCV 99 H MCH MCHC RDW Lymph % (Auto) [place] % (Auto) Lymph # (Auto) [place] # (Auto) Baso # (Auto) Seg Neutrophils % Seg Neuts % (Manual) 86.0 H Lymphocytes % (Manual) 9.0 L Nucleated RBC % Seg Neutrophils # Seg Neutrophils # Man 12.4 H Lymphocytes # (Manual) Monocytes # (Manual) Eosinophils # (Manual) PT INR APTT D-Dimer Heparin Anti-Xa Level ABG pH POC ABG pCO2 POC ABG pO2 ABG pO2 ABG HCO3 ABG O2 Saturation ABG Base Excess ABG Hemoglobin ABG Oxyhemoglobin ABG Sodium ABG Potassium ABG Chloride ABG Glucose Oxyhemoglobin Carboxyhemoglobin Sodium Potassium Chloride Carbon Dioxide BUN Creatinine Glucose POC Glucose 197 H Lactic Acid Calcium Magnesium Ferritin Total Bilirubin Direct Bilirubin AST ALT Alkaline Phosphatase Lactate Dehydrogenase C-Reactive Protein Total Protein Albumin Triglycerides 244 H Lipase Arterial Blood Glucose Arterial Blood Ionized Calcium Urine WBC (Auto) Coronavirus (PCR) SARS-CoV-2 IgG Ab Crossmatch 06/01/20 06/01/20 06/01/20 07:47 11:46 18:15 WBC RBC Hgb Hct MCV MCH MCHC RDW Lymph % (Auto) [place] % (Auto) Lymph # (Auto) [place] # (Auto) Baso # (Auto) Seg Neutrophils % Seg Neuts % (Manual) Lymphocytes % (Manual) Nucleated RBC % Seg Neutrophils # Seg Neutrophils # Man Lymphocytes # (Manual) Monocytes # (Manual) Eosinophils # (Manual) PT INR APTT D-Dimer Heparin Anti-Xa Level ABG pH POC ABG pCO2 POC ABG pO2 ABG pO2 ABG HCO3 ABG O2 Saturation ABG Base Excess ABG Hemoglobin ABG Oxyhemoglobin ABG Sodium ABG Potassium ABG Chloride ABG Glucose Oxyhemoglobin Carboxyhemoglobin Sodium Potassium Chloride 95.4 L Carbon Dioxide 35 H BUN 30 H Creatinine 0.5 L Glucose 214 H POC Glucose 181 H 221 H Lactic Acid Calcium Magnesium Ferritin Total Bilirubin Direct Bilirubin AST 54 H ALT 235 H Alkaline Phosphatase Lactate Dehydrogenase C-Reactive Protein Total Protein Albumin 2.9 L Triglycerides Lipase Arterial Blood Glucose Arterial Blood Ionized Calcium Urine WBC (Auto) Coronavirus (PCR) SARS-CoV-2 IgG Ab Crossmatch 06/01/20 06/02/20 06/02/20 23:12 04:00 05:31 WBC RBC Hgb Hct MCV MCH MCHC RDW Lymph % (Auto) [place] % (Auto) Lymph # (Auto) [place] # (Auto) Baso # (Auto) Seg Neutrophils % Seg Neuts % (Manual) Lymphocytes % (Manual) Nucleated RBC % Seg Neutrophils # Seg Neutrophils # Man Lymphocytes # (Manual) Monocytes # (Manual) Eosinophils # (Manual) PT INR APTT D-Dimer Heparin Anti-Xa Level ABG pH 7.465 H POC ABG pCO2 POC ABG pO2 ABG pO2 203.4 H ABG HCO3 41.2 H ABG O2 Saturation 99.3 H ABG Base Excess 15.1 H ABG Hemoglobin 11.5 L ABG Oxyhemoglobin ABG Sodium ABG Potassium ABG Chloride ABG Glucose Oxyhemoglobin Carboxyhemoglobin Sodium Potassium Chloride Carbon Dioxide BUN Creatinine Glucose POC Glucose 197 H 184 H Lactic Acid Calcium Magnesium Ferritin Total Bilirubin Direct Bilirubin AST ALT Alkaline Phosphatase Lactate Dehydrogenase C-Reactive Protein Total Protein Albumin Triglycerides Lipase Arterial Blood Glucose Arterial Blood Ionized Calcium Urine WBC (Auto) Coronavirus (PCR) SARS-CoV-2 IgG Ab Crossmatch 06/02/20 06/02/20 06/02/20 11:49 18:06 23:00 WBC RBC Hgb Hct MCV MCH MCHC RDW Lymph % (Auto) [place] % (Auto) Lymph # (Auto) [place] # (Auto) Baso # (Auto) Seg Neutrophils % Seg Neuts % (Manual) Lymphocytes % (Manual) Nucleated RBC % Seg Neutrophils # Seg Neutrophils # Man Lymphocytes # (Manual) Monocytes # (Manual) Eosinophils # (Manual) PT INR APTT D-Dimer Heparin Anti-Xa Level ABG pH POC ABG pCO2 POC ABG pO2 ABG pO2 ABG HCO3 ABG O2 Saturation ABG Base Excess ABG Hemoglobin ABG Oxyhemoglobin ABG Sodium ABG Potassium ABG Chloride ABG Glucose Oxyhemoglobin Carboxyhemoglobin Sodium Potassium Chloride Carbon Dioxide BUN Creatinine Glucose POC Glucose 195 H 177 H 228 H Lactic Acid Calcium Magnesium Ferritin Total Bilirubin Direct Bilirubin AST ALT Alkaline Phosphatase Lactate Dehydrogenase C-Reactive Protein Total Protein Albumin Triglycerides Lipase Arterial Blood Glucose Arterial Blood Ionized Calcium Urine WBC (Auto) Coronavirus (PCR) SARS-CoV-2 IgG Ab Crossmatch 06/03/20 06/03/20 06/03/20 03:58 05:19 12:21 WBC RBC Hgb Hct MCV MCH MCHC RDW Lymph % (Auto) [place] % (Auto) Lymph # (Auto) [place] # (Auto) Baso # (Auto) Seg Neutrophils % Seg Neuts % (Manual) Lymphocytes % (Manual) Nucleated RBC % Seg Neutrophils # Seg Neutrophils # Man Lymphocytes # (Manual) Monocytes # (Manual) Eosinophils # (Manual) PT INR APTT D-Dimer Heparin Anti-Xa Level ABG pH POC ABG pCO2 POC ABG pO2 ABG pO2 171.0 H ABG HCO3 42.8 H ABG O2 Saturation ABG Base Excess 15.6 H ABG Hemoglobin 12.3 L ABG Oxyhemoglobin ABG Sodium ABG Potassium ABG Chloride ABG Glucose Oxyhemoglobin Carboxyhemoglobin Sodium Potassium Chloride Carbon Dioxide BUN Creatinine Glucose POC Glucose 122 H 207 H Lactic Acid Calcium Magnesium Ferritin Total Bilirubin Direct Bilirubin AST ALT Alkaline Phosphatase Lactate Dehydrogenase C-Reactive Protein Total Protein Albumin Triglycerides Lipase Arterial Blood Glucose Arterial Blood Ionized Calcium Urine WBC (Auto) Coronavirus (PCR) SARS-CoV-2 IgG Ab Crossmatch 06/03/20 06/03/20 06/04/20 17:27 23:50 03:55 WBC RBC Hgb Hct MCV MCH MCHC RDW Lymph % (Auto) [place] % (Auto) Lymph # (Auto) [place] # (Auto) Baso # (Auto) Seg Neutrophils % Seg Neuts % (Manual) Lymphocytes % (Manual) Nucleated RBC % Seg Neutrophils # Seg Neutrophils # Man Lymphocytes # (Manual) Monocytes # (Manual) Eosinophils # (Manual) PT INR APTT D-Dimer Heparin Anti-Xa Level ABG pH POC ABG pCO2 POC ABG pO2 ABG pO2 117.2 H ABG HCO3 42.4 H ABG O2 Saturation ABG Base Excess 15.3 H ABG Hemoglobin 10.5 L ABG Oxyhemoglobin ABG Sodium ABG Potassium ABG Chloride ABG Glucose Oxyhemoglobin Carboxyhemoglobin Sodium Potassium Chloride Carbon Dioxide BUN Creatinine Glucose POC Glucose 157 H 214 H Lactic Acid Calcium Magnesium Ferritin Total Bilirubin Direct Bilirubin AST ALT Alkaline Phosphatase Lactate Dehydrogenase C-Reactive Protein Total Protein Albumin Triglycerides Lipase Arterial Blood Glucose Arterial Blood Ionized Calcium Urine WBC (Auto) Coronavirus (PCR) SARS-CoV-2 IgG Ab Crossmatch 06/04/20 06/04/20 06/04/20 05:49 11:41 17:30 WBC RBC Hgb Hct MCV MCH MCHC RDW Lymph % (Auto) [place] % (Auto) Lymph # (Auto) [place] # (Auto) Baso # (Auto) Seg Neutrophils % Seg Neuts % (Manual) Lymphocytes % (Manual) Nucleated RBC % Seg Neutrophils # Seg Neutrophils # Man Lymphocytes # (Manual) Monocytes # (Manual) Eosinophils # (Manual) PT INR APTT D-Dimer Heparin Anti-Xa Level ABG pH POC ABG pCO2 POC ABG pO2 ABG pO2 ABG HCO3 ABG O2 Saturation ABG Base Excess ABG Hemoglobin ABG Oxyhemoglobin ABG Sodium ABG Potassium ABG Chloride ABG Glucose Oxyhemoglobin Carboxyhemoglobin Sodium Potassium Chloride Carbon Dioxide BUN Creatinine Glucose POC Glucose 149 H 233 H 156 H Lactic Acid Calcium Magnesium Ferritin Total Bilirubin Direct Bilirubin AST ALT Alkaline Phosphatase Lactate Dehydrogenase C-Reactive Protein Total Protein Albumin Triglycerides Lipase Arterial Blood Glucose Arterial Blood Ionized Calcium Urine WBC (Auto) Coronavirus (PCR) SARS-CoV-2 IgG Ab Crossmatch 06/04/20 06/04/20 06/04/20 19:01 20:53 23:41 WBC RBC 3.18 L Hgb 10.8 L Hct 31.8 L MCV 100 H MCH 34 H MCHC RDW Lymph % (Auto) [place] % (Auto) Lymph # (Auto) [place] # (Auto) Baso # (Auto) Seg Neutrophils % Seg Neuts % (Manual) 86.0 H Lymphocytes % (Manual) 10.0 L Nucleated RBC % 1.0 H Seg Neutrophils # Seg Neutrophils # Man 8.5 H Lymphocytes # (Manual) 1.0 L Monocytes # (Manual) Eosinophils # (Manual) PT INR APTT D-Dimer Heparin Anti-Xa Level ABG pH POC ABG pCO2 POC ABG pO2 ABG pO2 ABG HCO3 ABG O2 Saturation ABG Base Excess ABG Hemoglobin ABG Oxyhemoglobin ABG Sodium ABG Potassium ABG Chloride ABG Glucose Oxyhemoglobin Carboxyhemoglobin Sodium Potassium 3.4 L D Chloride 96.5 L Carbon Dioxide 41 H* BUN 27 H Creatinine 0.5 L Glucose 173 H POC Glucose 217 H Lactic Acid Calcium Magnesium Ferritin Total Bilirubin Direct Bilirubin AST ALT Alkaline Phosphatase Lactate Dehydrogenase C-Reactive Protein Total Protein Albumin Triglycerides Lipase Arterial Blood Glucose Arterial Blood Ionized Calcium Urine WBC (Auto) Coronavirus (PCR) SARS-CoV-2 IgG Ab Crossmatch 06/05/20 06/05/20 06/05/20 06:05 11:54 12:35 WBC RBC Hgb Hct MCV MCH MCHC RDW Lymph % (Auto) [place] % (Auto) Lymph # (Auto) [place] # (Auto) Baso # (Auto) Seg Neutrophils % Seg Neuts % (Manual) Lymphocytes % (Manual) Nucleated RBC % Seg Neutrophils # Seg Neutrophils # Man Lymphocytes # (Manual) Monocytes # (Manual) Eosinophils # (Manual) PT INR APTT D-Dimer Heparin Anti-Xa Level ABG pH POC ABG pCO2 POC ABG pO2 ABG pO2 127.9 H ABG HCO3 41.1 H ABG O2 Saturation ABG Base Excess 13.0 H ABG Hemoglobin 13.4 L ABG Oxyhemoglobin ABG Sodium ABG Potassium ABG Chloride ABG Glucose Oxyhemoglobin Carboxyhemoglobin Sodium Potassium Chloride Carbon Dioxide BUN Creatinine Glucose POC Glucose 137 H 211 H Lactic Acid Calcium Magnesium Ferritin Total Bilirubin Direct Bilirubin AST ALT Alkaline Phosphatase Lactate Dehydrogenase C-Reactive Protein Total Protein Albumin Triglycerides Lipase Arterial Blood Glucose Arterial Blood Ionized Calcium Urine WBC (Auto) Coronavirus (PCR) SARS-CoV-2 IgG Ab Crossmatch 06/05/20 06/05/20 06/06/20 17:03 23:49 04:42 WBC RBC Hgb Hct MCV MCH MCHC RDW Lymph % (Auto) [place] % (Auto) Lymph # (Auto) [place] # (Auto) Baso # (Auto) Seg Neutrophils % Seg Neuts % (Manual) Lymphocytes % (Manual) Nucleated RBC % Seg Neutrophils # Seg Neutrophils # Man Lymphocytes # (Manual) Monocytes # (Manual) Eosinophils # (Manual) PT INR APTT D-Dimer Heparin Anti-Xa Level ABG pH POC ABG pCO2 56.1 H POC ABG pO2 52.5 L ABG pO2 ABG HCO3 ABG O2 Saturation ABG Base Excess ABG Hemoglobin 11.7 L ABG Oxyhemoglobin ABG Sodium ABG Potassium 3.3 L ABG Chloride 95.0 L ABG Glucose 156 H Oxyhemoglobin Carboxyhemoglobin Sodium Potassium Chloride Carbon Dioxide BUN Creatinine Glucose POC Glucose 159 H 194 H Lactic Acid Calcium Magnesium Ferritin Total Bilirubin Direct Bilirubin AST ALT Alkaline Phosphatase Lactate Dehydrogenase C-Reactive Protein Total Protein Albumin Triglycerides Lipase Arterial Blood Glucose 156 H Arterial Blood Ionized Calcium Urine WBC (Auto) Coronavirus (PCR) SARS-CoV-2 IgG Ab Crossmatch 06/06/20 06/06/20 06/06/20 05:57 12:06 17:38 WBC RBC Hgb Hct MCV MCH MCHC RDW Lymph % (Auto) [place] % (Auto) Lymph # (Auto) [place] # (Auto) Baso # (Auto) Seg Neutrophils % Seg Neuts % (Manual) Lymphocytes % (Manual) Nucleated RBC % Seg Neutrophils # Seg Neutrophils # Man Lymphocytes # (Manual) Monocytes # (Manual) Eosinophils # (Manual) PT INR APTT D-Dimer Heparin Anti-Xa Level ABG pH POC ABG pCO2 POC ABG pO2 ABG pO2 ABG HCO3 ABG O2 Saturation ABG Base Excess ABG Hemoglobin ABG Oxyhemoglobin ABG Sodium ABG Potassium ABG Chloride ABG Glucose Oxyhemoglobin Carboxyhemoglobin Sodium Potassium Chloride Carbon Dioxide BUN Creatinine Glucose POC Glucose 144 H 230 H 162 H Lactic Acid Calcium Magnesium Ferritin Total Bilirubin Direct Bilirubin AST ALT Alkaline Phosphatase Lactate Dehydrogenase C-Reactive Protein Total Protein Albumin Triglycerides Lipase Arterial Blood Glucose Arterial Blood Ionized Calcium Urine WBC (Auto) Coronavirus (PCR) SARS-CoV-2 IgG Ab Crossmatch 06/06/20 06/07/20 06/07/20 23:50 04:34 06:03 WBC RBC Hgb Hct MCV MCH MCHC RDW Lymph % (Auto) [place] % (Auto) Lymph # (Auto) [place] # (Auto) Baso # (Auto) Seg Neutrophils % Seg Neuts % (Manual) Lymphocytes % (Manual) Nucleated RBC % Seg Neutrophils # Seg Neutrophils # Man Lymphocytes # (Manual) Monocytes # (Manual) Eosinophils # (Manual) PT INR APTT D-Dimer Heparin Anti-Xa Level ABG pH 7.511 H POC ABG pCO2 53.5 H POC ABG pO2 114.5 H ABG pO2 ABG HCO3 ABG O2 Saturation ABG Base Excess ABG Hemoglobin 9.4 L ABG Oxyhemoglobin ABG Sodium 134.5 L ABG Potassium ABG Chloride 94.0 L ABG Glucose 186 H Oxyhemoglobin Carboxyhemoglobin Sodium Potassium Chloride Carbon Dioxide BUN Creatinine Glucose POC Glucose 181 H 155 H Lactic Acid Calcium Magnesium Ferritin Total Bilirubin Direct Bilirubin AST ALT Alkaline Phosphatase Lactate Dehydrogenase C-Reactive Protein Total Protein Albumin Triglycerides Lipase Arterial Blood Glucose 186 H Arterial Blood Ionized Calcium 4.5 L Urine WBC (Auto) Coronavirus (PCR) SARS-CoV-2 IgG Ab Crossmatch 06/07/20 06/07/20 06/07/20 13:41 14:58 14:58 WBC RBC 2.72 L Hgb 9.3 L Hct 27.2 L MCV 100 H MCH 34 H MCHC RDW Lymph % (Auto) [place] % (Auto) Lymph # (Auto) [place] # (Auto) Baso # (Auto) Seg Neutrophils % Seg Neuts % (Manual) Lymphocytes % (Manual) Nucleated RBC % Seg Neutrophils # Seg Neutrophils # Man Lymphocytes # (Manual) Monocytes # (Manual) Eosinophils # (Manual) PT INR APTT D-Dimer Heparin Anti-Xa Level ABG pH POC ABG pCO2 POC ABG pO2 ABG pO2 ABG HCO3 ABG O2 Saturation ABG Base Excess ABG Hemoglobin ABG Oxyhemoglobin ABG Sodium ABG Potassium ABG Chloride ABG Glucose Oxyhemoglobin Carboxyhemoglobin Sodium Potassium Chloride 93.5 L Carbon Dioxide 39 H BUN 22 H Creatinine 0.4 L Glucose 188 H POC Glucose 201 H Lactic Acid Calcium Magnesium Ferritin Total Bilirubin Direct Bilirubin AST 61 H ALT 273 H Alkaline Phosphatase Lactate Dehydrogenase C-Reactive Protein Total Protein 5.9 L Albumin 2.7 L Triglycerides Lipase Arterial Blood Glucose Arterial Blood Ionized Calcium Urine WBC (Auto) Coronavirus (PCR) SARS-CoV-2 IgG Ab Crossmatch 06/07/20 06/08/20 06/08/20 23:18 05:31 12:07 WBC RBC Hgb Hct MCV MCH MCHC RDW Lymph % (Auto) [place] % (Auto) Lymph # (Auto) [place] # (Auto) Baso # (Auto) Seg Neutrophils % Seg Neuts % (Manual) Lymphocytes % (Manual) Nucleated RBC % Seg Neutrophils # Seg Neutrophils # Man Lymphocytes # (Manual) Monocytes # (Manual) Eosinophils # (Manual) PT INR APTT D-Dimer Heparin Anti-Xa Level ABG pH POC ABG pCO2 POC ABG pO2 ABG pO2 ABG HCO3 ABG O2 Saturation ABG Base Excess ABG Hemoglobin ABG Oxyhemoglobin ABG Sodium ABG Potassium ABG Chloride ABG Glucose Oxyhemoglobin Carboxyhemoglobin Sodium Potassium Chloride Carbon Dioxide BUN Creatinine Glucose POC Glucose 214 H 129 H 179 H Lactic Acid Calcium Magnesium Ferritin Total Bilirubin Direct Bilirubin AST ALT Alkaline Phosphatase Lactate Dehydrogenase C-Reactive Protein Total Protein Albumin Triglycerides Lipase Arterial Blood Glucose Arterial Blood Ionized Calcium Urine WBC (Auto) Coronavirus (PCR) SARS-CoV-2 IgG Ab Crossmatch 06/08/20 06/08/20 06/09/20 18:18 23:35 05:42 WBC RBC Hgb Hct MCV MCH MCHC RDW Lymph % (Auto) [place] % (Auto) Lymph # (Auto) [place] # (Auto) Baso # (Auto) Seg Neutrophils % Seg Neuts % (Manual) Lymphocytes % (Manual) Nucleated RBC % Seg Neutrophils # Seg Neutrophils # Man Lymphocytes # (Manual) Monocytes # (Manual) Eosinophils # (Manual) PT INR APTT D-Dimer Heparin Anti-Xa Level ABG pH POC ABG pCO2 POC ABG pO2 ABG pO2 ABG HCO3 ABG O2 Saturation ABG Base Excess ABG Hemoglobin ABG Oxyhemoglobin ABG Sodium ABG Potassium ABG Chloride ABG Glucose Oxyhemoglobin Carboxyhemoglobin Sodium Potassium Chloride Carbon Dioxide BUN Creatinine Glucose POC Glucose 172 H 177 H 137 H Lactic Acid Calcium Magnesium Ferritin Total Bilirubin Direct Bilirubin AST ALT Alkaline Phosphatase Lactate Dehydrogenase C-Reactive Protein Total Protein Albumin Triglycerides Lipase Arterial Blood Glucose Arterial Blood Ionized Calcium Urine WBC (Auto) Coronavirus (PCR) SARS-CoV-2 IgG Ab Crossmatch 06/09/20 06/09/20 06/09/20 06:20 07:55 07:55 WBC 12.4 H RBC 3.26 L Hgb 11.1 L Hct 33.4 L D MCV 102 H MCH 34 H MCHC RDW Lymph % (Auto) [place] % (Auto) Lymph # (Auto) [place] # (Auto) Baso # (Auto) Seg Neutrophils % Seg Neuts % (Manual) Lymphocytes % (Manual) Nucleated RBC % Seg Neutrophils # Seg Neutrophils # Man Lymphocytes # (Manual) Monocytes # (Manual) Eosinophils # (Manual) PT INR APTT D-Dimer Heparin Anti-Xa Level ABG pH 7.466 H POC ABG pCO2 50.7 H POC ABG pO2 53.0 L ABG pO2 ABG HCO3 ABG O2 Saturation ABG Base Excess ABG Hemoglobin ABG Oxyhemoglobin ABG Sodium ABG Potassium 2.9 L ABG Chloride 93.0 L ABG Glucose 138 H Oxyhemoglobin Carboxyhemoglobin Sodium Potassium 3.0 L Chloride 92.3 L Carbon Dioxide 37 H BUN 21 H Creatinine 0.6 L Glucose 120 H POC Glucose Lactic Acid Calcium Magnesium Ferritin Total Bilirubin Direct Bilirubin AST ALT Alkaline Phosphatase Lactate Dehydrogenase C-Reactive Protein Total Protein Albumin Triglycerides Lipase Arterial Blood Glucose 138 H Arterial Blood Ionized Calcium 4.5 L Urine WBC (Auto) Coronavirus (PCR) SARS-CoV-2 IgG Ab Crossmatch 06/09/20 06/09/20 06/10/20 11:22 18:32 04:46 WBC RBC Hgb Hct MCV MCH MCHC RDW Lymph % (Auto) [place] % (Auto) Lymph # (Auto) [place] # (Auto) Baso # (Auto) Seg Neutrophils % Seg Neuts % (Manual) Lymphocytes % (Manual) Nucleated RBC % Seg Neutrophils # Seg Neutrophils # Man Lymphocytes # (Manual) Monocytes # (Manual) Eosinophils # (Manual) PT INR APTT D-Dimer Heparin Anti-Xa Level ABG pH 7.501 H POC ABG pCO2 POC ABG pO2 126.5 H ABG pO2 ABG HCO3 ABG O2 Saturation ABG Base Excess ABG Hemoglobin 10.3 L ABG Oxyhemoglobin ABG Sodium ABG Potassium ABG Chloride ABG Glucose 220 H Oxyhemoglobin Carboxyhemoglobin Sodium Potassium Chloride Carbon Dioxide BUN Creatinine Glucose POC Glucose 117 H 121 H Lactic Acid Calcium Magnesium Ferritin Total Bilirubin Direct Bilirubin AST ALT Alkaline Phosphatase Lactate Dehydrogenase C-Reactive Protein Total Protein Albumin Triglycerides Lipase Arterial Blood Glucose 220 H Arterial Blood Ionized Calcium Urine WBC (Auto) Coronavirus (PCR) SARS-CoV-2 IgG Ab Crossmatch 06/10/20 06/10/20 06/10/20 05:30 09:38 12:03 WBC RBC Hgb Hct MCV MCH MCHC RDW Lymph % (Auto) [place] % (Auto) Lymph # (Auto) [place] # (Auto) Baso # (Auto) Seg Neutrophils % Seg Neuts % (Manual) Lymphocytes % (Manual) Nucleated RBC % Seg Neutrophils # Seg Neutrophils # Man Lymphocytes # (Manual) Monocytes # (Manual) Eosinophils # (Manual) PT INR APTT D-Dimer Heparin Anti-Xa Level ABG pH POC ABG pCO2 POC ABG pO2 ABG pO2 ABG HCO3 ABG O2 Saturation ABG Base Excess ABG Hemoglobin ABG Oxyhemoglobin ABG Sodium ABG Potassium ABG Chloride ABG Glucose Oxyhemoglobin Carboxyhemoglobin Sodium Potassium Chloride Carbon Dioxide BUN Creatinine Glucose POC Glucose 181 H 204 H Lactic Acid Calcium Magnesium Ferritin Total Bilirubin Direct Bilirubin AST ALT Alkaline Phosphatase Lactate Dehydrogenase C-Reactive Protein Total Protein Albumin Triglycerides 738 H Lipase Arterial Blood Glucose Arterial Blood Ionized Calcium Urine WBC (Auto) Coronavirus (PCR) SARS-CoV-2 IgG Ab Crossmatch 06/10/20 06/11/20 06/11/20 17:17 00:04 04:38 WBC RBC Hgb Hct MCV MCH MCHC RDW Lymph % (Auto) [place] % (Auto) Lymph # (Auto) [place] # (Auto) Baso # (Auto) Seg Neutrophils % Seg Neuts % (Manual) Lymphocytes % (Manual) Nucleated RBC % Seg Neutrophils # Seg Neutrophils # Man Lymphocytes # (Manual) Monocytes # (Manual) Eosinophils # (Manual) PT INR APTT D-Dimer Heparin Anti-Xa Level ABG pH 7.479 H POC ABG pCO2 POC ABG pO2 76.7 L ABG pO2 ABG HCO3 ABG O2 Saturation ABG Base Excess ABG Hemoglobin 9.8 L ABG Oxyhemoglobin ABG Sodium 135.8 L ABG Potassium ABG Chloride ABG Glucose 238 H Oxyhemoglobin Carboxyhemoglobin Sodium Potassium Chloride Carbon Dioxide BUN Creatinine Glucose POC Glucose 156 H 178 H Lactic Acid Calcium Magnesium Ferritin Total Bilirubin Direct Bilirubin AST ALT Alkaline Phosphatase Lactate Dehydrogenase C-Reactive Protein Total Protein Albumin Triglycerides Lipase Arterial Blood Glucose 238 H Arterial Blood Ionized Calcium Urine WBC (Auto) Coronavirus (PCR) SARS-CoV-2 IgG Ab Crossmatch 06/11/20 06/11/20 06/11/20 05:21 06:52 11:50 WBC RBC Hgb Hct MCV MCH MCHC RDW Lymph % (Auto) [place] % (Auto) Lymph # (Auto) [place] # (Auto) Baso # (Auto) Seg Neutrophils % Seg Neuts % (Manual) Lymphocytes % (Manual) Nucleated RBC % Seg Neutrophils # Seg Neutrophils # Man Lymphocytes # (Manual) Monocytes # (Manual) Eosinophils # (Manual) PT INR APTT D-Dimer Heparin Anti-Xa Level ABG pH POC ABG pCO2 POC ABG pO2 ABG pO2 ABG HCO3 ABG O2 Saturation ABG Base Excess ABG Hemoglobin ABG Oxyhemoglobin ABG Sodium ABG Potassium ABG Chloride ABG Glucose Oxyhemoglobin Carboxyhemoglobin Sodium Potassium Chloride Carbon Dioxide BUN Creatinine Glucose POC Glucose 215 H 187 H Lactic Acid Calcium Magnesium Ferritin Total Bilirubin Direct Bilirubin AST ALT Alkaline Phosphatase Lactate Dehydrogenase C-Reactive Protein Total Protein Albumin Triglycerides 331 H Lipase Arterial Blood Glucose Arterial Blood Ionized Calcium Urine WBC (Auto) Coronavirus (PCR) SARS-CoV-2 IgG Ab Crossmatch 06/11/20 06/11/20 06/12/20 17:49 23:35 04:52 WBC RBC Hgb Hct MCV MCH MCHC RDW Lymph % (Auto) [place] % (Auto) Lymph # (Auto) [place] # (Auto) Baso # (Auto) Seg Neutrophils % Seg Neuts % (Manual) Lymphocytes % (Manual) Nucleated RBC % Seg Neutrophils # Seg Neutrophils # Man Lymphocytes # (Manual) Monocytes # (Manual) Eosinophils # (Manual) PT INR APTT D-Dimer Heparin Anti-Xa Level ABG pH 7.486 H POC ABG pCO2 POC ABG pO2 ABG pO2 ABG HCO3 ABG O2 Saturation ABG Base Excess ABG Hemoglobin 9.4 L ABG Oxyhemoglobin ABG Sodium ABG Potassium 3.2 L ABG Chloride ABG Glucose 209 H Oxyhemoglobin Carboxyhemoglobin Sodium Potassium Chloride Carbon Dioxide BUN Creatinine Glucose POC Glucose 211 H 200 H Lactic Acid Calcium Magnesium Ferritin Total Bilirubin Direct Bilirubin AST ALT Alkaline Phosphatase Lactate Dehydrogenase C-Reactive Protein Total Protein Albumin Triglycerides Lipase Arterial Blood Glucose 209 H Arterial Blood Ionized Calcium Urine WBC (Auto) Coronavirus (PCR) SARS-CoV-2 IgG Ab Crossmatch 06/12/20 06/12/20 06/12/20 05:13 11:47 18:33 WBC RBC Hgb Hct MCV MCH MCHC RDW Lymph % (Auto) [place] % (Auto) Lymph # (Auto) [place] # (Auto) Baso # (Auto) Seg Neutrophils % Seg Neuts % (Manual) Lymphocytes % (Manual) Nucleated RBC % Seg Neutrophils # Seg Neutrophils # Man Lymphocytes # (Manual) Monocytes # (Manual) Eosinophils # (Manual) PT INR APTT D-Dimer Heparin Anti-Xa Level ABG pH POC ABG pCO2 POC ABG pO2 ABG pO2 ABG HCO3 ABG O2 Saturation ABG Base Excess ABG Hemoglobin ABG Oxyhemoglobin ABG Sodium ABG Potassium ABG Chloride ABG Glucose Oxyhemoglobin Carboxyhemoglobin Sodium Potassium Chloride Carbon Dioxide BUN Creatinine Glucose POC Glucose 174 H 214 H 194 H Lactic Acid Calcium Magnesium Ferritin Total Bilirubin Direct Bilirubin AST ALT Alkaline Phosphatase Lactate Dehydrogenase C-Reactive Protein Total Protein Albumin Triglycerides Lipase Arterial Blood Glucose Arterial Blood Ionized Calcium Urine WBC (Auto) Coronavirus (PCR) SARS-CoV-2 IgG Ab Crossmatch 06/12/20 06/13/20 06/13/20 23:49 05:41 12:30 WBC RBC Hgb Hct MCV MCH MCHC RDW Lymph % (Auto) [place] % (Auto) Lymph # (Auto) [place] # (Auto) Baso # (Auto) Seg Neutrophils % Seg Neuts % (Manual) Lymphocytes % (Manual) Nucleated RBC % Seg Neutrophils # Seg Neutrophils # Man Lymphocytes # (Manual) Monocytes # (Manual) Eosinophils # (Manual) PT INR APTT D-Dimer Heparin Anti-Xa Level ABG pH POC ABG pCO2 POC ABG pO2 ABG pO2 ABG HCO3 ABG O2 Saturation ABG Base Excess ABG Hemoglobin ABG Oxyhemoglobin ABG Sodium ABG Potassium ABG Chloride ABG Glucose Oxyhemoglobin Carboxyhemoglobin Sodium Potassium Chloride Carbon Dioxide BUN Creatinine Glucose POC Glucose 160 H 150 H 181 H Lactic Acid Calcium Magnesium Ferritin Total Bilirubin Direct Bilirubin AST ALT Alkaline Phosphatase Lactate Dehydrogenase C-Reactive Protein Total Protein Albumin Triglycerides Lipase Arterial Blood Glucose Arterial Blood Ionized Calcium Urine WBC (Auto) Coronavirus (PCR) SARS-CoV-2 IgG Ab Crossmatch 06/13/20 06/13/20 06/13/20 14:14 17:48 23:27 WBC 12.8 H RBC 2.33 L Hgb 8.0 L Hct 23.3 L MCV 100 H MCH 34 H MCHC RDW 15.7 H Lymph % (Auto) [place] % (Auto) Lymph # (Auto) [place] # (Auto) Baso # (Auto) Seg Neutrophils % Seg Neuts % (Manual) 85.0 H Lymphocytes % (Manual) 10.0 L Nucleated RBC % Seg Neutrophils # Seg Neutrophils # Man 10.9 H Lymphocytes # (Manual) Monocytes # (Manual) Eosinophils # (Manual) PT INR APTT D-Dimer Heparin Anti-Xa Level ABG pH POC ABG pCO2 POC ABG pO2 ABG pO2 ABG HCO3 ABG O2 Saturation ABG Base Excess ABG Hemoglobin ABG Oxyhemoglobin ABG Sodium ABG Potassium ABG Chloride ABG Glucose Oxyhemoglobin Carboxyhemoglobin Sodium Potassium Chloride Carbon Dioxide BUN Creatinine Glucose POC Glucose 173 H 154 H Lactic Acid Calcium Magnesium Ferritin Total Bilirubin Direct Bilirubin AST ALT Alkaline Phosphatase Lactate Dehydrogenase C-Reactive Protein Total Protein Albumin Triglycerides Lipase Arterial Blood Glucose Arterial Blood Ionized Calcium Urine WBC (Auto) Coronavirus (PCR) SARS-CoV-2 IgG Ab Crossmatch 06/14/20 06/14/20 06/14/20 03:58 05:21 07:15 WBC 26.2 H RBC 2.97 L Hgb 9.7 L Hct 29.9 L D MCV 101 H MCH 33 H MCHC RDW 15.3 H Lymph % (Auto) [place] % (Auto) Lymph # (Auto) [place] # (Auto) Baso # (Auto) Seg Neutrophils % Seg Neuts % (Manual) 79.0 H Lymphocytes % (Manual) 5.0 L Nucleated RBC % 3.0 H Seg Neutrophils # Seg Neutrophils # Man 20.7 H Lymphocytes # (Manual) Monocytes # (Manual) 1.3 H Eosinophils # (Manual) PT INR APTT D-Dimer Heparin Anti-Xa Level ABG pH POC ABG pCO2 51.5 H POC ABG pO2 70.0 L ABG pO2 ABG HCO3 ABG O2 Saturation ABG Base Excess ABG Hemoglobin 10.1 L ABG Oxyhemoglobin ABG Sodium 131.5 L ABG Potassium 3.1 L ABG Chloride 93.0 L ABG Glucose 188 H Oxyhemoglobin Carboxyhemoglobin Sodium Potassium Chloride Carbon Dioxide BUN Creatinine Glucose POC Glucose 147 H Lactic Acid Calcium Magnesium Ferritin Total Bilirubin Direct Bilirubin AST ALT Alkaline Phosphatase Lactate Dehydrogenase C-Reactive Protein Total Protein Albumin Triglycerides Lipase Arterial Blood Glucose 188 H Arterial Blood Ionized Calcium Urine WBC (Auto) Coronavirus (PCR) SARS-CoV-2 IgG Ab Crossmatch 06/14/20 06/14/20 06/14/20 07:15 11:30 11:50 WBC RBC Hgb Hct MCV MCH MCHC RDW Lymph % (Auto) [place] % (Auto) Lymph # (Auto) [place] # (Auto) Baso # (Auto) Seg Neutrophils % Seg Neuts % (Manual) Lymphocytes % (Manual) Nucleated RBC % Seg Neutrophils # Seg Neutrophils # Man Lymphocytes # (Manual) Monocytes # (Manual) Eosinophils # (Manual) PT INR APTT D-Dimer Heparin Anti-Xa Level ABG pH POC ABG pCO2 POC ABG pO2 ABG pO2 ABG HCO3 ABG O2 Saturation ABG Base Excess ABG Hemoglobin ABG Oxyhemoglobin ABG Sodium ABG Potassium ABG Chloride ABG Glucose Oxyhemoglobin Carboxyhemoglobin Sodium 135 L Potassium 3.5 L Chloride 90.4 L Carbon Dioxide 38 H BUN Creatinine 0.5 L Glucose 190 H POC Glucose 176 H Lactic Acid Calcium Magnesium Ferritin 1496.0 H Total Bilirubin Direct Bilirubin AST ALT 81 H Alkaline Phosphatase Lactate Dehydrogenase C-Reactive Protein Total Protein Albumin 2.9 L Triglycerides Lipase Arterial Blood Glucose Arterial Blood Ionized Calcium Urine WBC (Auto) Coronavirus (PCR) SARS-CoV-2 IgG Ab Crossmatch 06/14/20 06/15/20 06/15/20 23:31 04:00 05:00 WBC RBC Hgb Hct MCV MCH MCHC RDW Lymph % (Auto) [place] % (Auto) Lymph # (Auto) [place] # (Auto) Baso # (Auto) Seg Neutrophils % Seg Neuts % (Manual) Lymphocytes % (Manual) Nucleated RBC % Seg Neutrophils # Seg Neutrophils # Man Lymphocytes # (Manual) Monocytes # (Manual) Eosinophils # (Manual) PT INR APTT D-Dimer Heparin Anti-Xa Level ABG pH POC ABG pCO2 POC ABG pO2 ABG pO2 ABG HCO3 ABG O2 Saturation ABG Base Excess ABG Hemoglobin ABG Oxyhemoglobin ABG Sodium ABG Potassium ABG Chloride ABG Glucose Oxyhemoglobin Carboxyhemoglobin Sodium 133 L Potassium Chloride 91.1 L Carbon Dioxide 34 H BUN Creatinine 0.4 L Glucose 159 H POC Glucose 200 H Lactic Acid Calcium Magnesium Ferritin Total Bilirubin 2.00 H Direct Bilirubin AST 47 H ALT 77 H Alkaline Phosphatase Lactate Dehydrogenase C-Reactive Protein Total Protein Albumin 2.6 L Triglycerides 152 H Lipase Arterial Blood Glucose Arterial Blood Ionized Calcium Urine WBC (Auto) Coronavirus (PCR) SARS-CoV-2 IgG Ab Crossmatch 06/15/20 06/15/20 06/15/20 05:35 06:27 11:38 WBC RBC Hgb Hct MCV MCH MCHC RDW Lymph % (Auto) [place] % (Auto) Lymph # (Auto) [place] # (Auto) Baso # (Auto) Seg Neutrophils % Seg Neuts % (Manual) Lymphocytes % (Manual) Nucleated RBC % Seg Neutrophils # Seg Neutrophils # Man Lymphocytes # (Manual) Monocytes # (Manual) Eosinophils # (Manual) PT INR APTT D-Dimer Heparin Anti-Xa Level ABG pH POC ABG pCO2 61.0 H POC ABG pO2 67.9 L ABG pO2 ABG HCO3 ABG O2 Saturation ABG Base Excess ABG Hemoglobin 10.4 L ABG Oxyhemoglobin ABG Sodium 132.7 L ABG Potassium 3.3 L ABG Chloride 92.0 L ABG Glucose 158 H Oxyhemoglobin Carboxyhemoglobin Sodium Potassium Chloride Carbon Dioxide BUN Creatinine Glucose POC Glucose 148 H 197 H Lactic Acid Calcium Magnesium Ferritin Total Bilirubin Direct Bilirubin AST ALT Alkaline Phosphatase Lactate Dehydrogenase C-Reactive Protein Total Protein Albumin Triglycerides Lipase Arterial Blood Glucose 158 H Arterial Blood Ionized Calcium Urine WBC (Auto) Coronavirus (PCR) SARS-CoV-2 IgG Ab Crossmatch 06/15/20 06/15/20 06/16/20 17:29 Unknown 00:01 WBC 20.7 H RBC 2.57 L Hgb 8.9 L Hct 25.8 L MCV 101 H MCH 35 H MCHC 35 H RDW 16.0 H Lymph % (Auto) [place] % (Auto) Lymph # (Auto) [place] # (Auto) Baso # (Auto) Seg Neutrophils % Seg Neuts % (Manual) 83.0 H Lymphocytes % (Manual) 8.0 L Nucleated RBC % Seg Neutrophils # Seg Neutrophils # Man 17.2 H Lymphocytes # (Manual) Monocytes # (Manual) 1.2 H Eosinophils # (Manual) PT INR APTT D-Dimer Heparin Anti-Xa Level ABG pH POC ABG pCO2 POC ABG pO2 ABG pO2 ABG HCO3 ABG O2 Saturation ABG Base Excess ABG Hemoglobin ABG Oxyhemoglobin ABG Sodium ABG Potassium ABG Chloride ABG Glucose Oxyhemoglobin Carboxyhemoglobin Sodium Potassium Chloride Carbon Dioxide BUN Creatinine Glucose POC Glucose 231 H 257 H Lactic Acid Calcium Magnesium Ferritin Total Bilirubin Direct Bilirubin AST ALT Alkaline Phosphatase Lactate Dehydrogenase C-Reactive Protein Total Protein Albumin Triglycerides Lipase Arterial Blood Glucose Arterial Blood Ionized Calcium Urine WBC (Auto) Coronavirus (PCR) SARS-CoV-2 IgG Ab Crossmatch 06/16/20 06/16/20 06/16/20 04:00 04:00 05:22 WBC 13.8 H RBC 2.03 L Hgb 7.6 L Hct 20.7 L MCV 102 H MCH 37 H MCHC 37 H RDW 16.2 H Lymph % (Auto) 4.4 L [place] % (Auto) Lymph # (Auto) 0.6 L [place] # (Auto) Baso # (Auto) Seg Neutrophils % Seg Neuts % (Manual) Lymphocytes % (Manual) Nucleated RBC % Seg Neutrophils # 12.7 H Seg Neutrophils # Man Lymphocytes # (Manual) Monocytes # (Manual) Eosinophils # (Manual) PT INR APTT D-Dimer Heparin Anti-Xa Level ABG pH POC ABG pCO2 POC ABG pO2 ABG pO2 ABG HCO3 ABG O2 Saturation ABG Base Excess ABG Hemoglobin ABG Oxyhemoglobin ABG Sodium ABG Potassium ABG Chloride ABG Glucose Oxyhemoglobin Carboxyhemoglobin Sodium 130 L Potassium Chloride 88.9 L Carbon Dioxide 36 H BUN Creatinine 0.3 L Glucose 276 H POC Glucose 250 H Lactic Acid Calcium Magnesium Ferritin Total Bilirubin Direct Bilirubin AST ALT Alkaline Phosphatase Lactate Dehydrogenase C-Reactive Protein Total Protein Albumin Triglycerides Lipase Arterial Blood Glucose Arterial Blood Ionized Calcium Urine WBC (Auto) Coronavirus (PCR) SARS-CoV-2 IgG Ab Crossmatch 06/16/20 06/16/20 06/17/20 12:44 18:18 00:39 WBC RBC Hgb Hct MCV MCH MCHC RDW Lymph % (Auto) [place] % (Auto) Lymph # (Auto) [place] # (Auto) Baso # (Auto) Seg Neutrophils % Seg Neuts % (Manual) Lymphocytes % (Manual) Nucleated RBC % Seg Neutrophils # Seg Neutrophils # Man Lymphocytes # (Manual) Monocytes # (Manual) Eosinophils # (Manual) PT INR APTT D-Dimer Heparin Anti-Xa Level ABG pH POC ABG pCO2 POC ABG pO2 ABG pO2 ABG HCO3 ABG O2 Saturation ABG Base Excess ABG Hemoglobin ABG Oxyhemoglobin ABG Sodium ABG Potassium ABG Chloride ABG Glucose Oxyhemoglobin Carboxyhemoglobin Sodium Potassium Chloride Carbon Dioxide BUN Creatinine Glucose POC Glucose 279 H 239 H 247 H Lactic Acid Calcium Magnesium Ferritin Total Bilirubin Direct Bilirubin AST ALT Alkaline Phosphatase Lactate Dehydrogenase C-Reactive Protein Total Protein Albumin Triglycerides Lipase Arterial Blood Glucose Arterial Blood Ionized Calcium Urine WBC (Auto) Coronavirus (PCR) SARS-CoV-2 IgG Ab Crossmatch 06/17/20 06/17/20 06/17/20 03:40 04:08 10:54 WBC RBC Hgb Hct MCV MCH MCHC RDW Lymph % (Auto) [place] % (Auto) Lymph # (Auto) [place] # (Auto) Baso # (Auto) Seg Neutrophils % Seg Neuts % (Manual) Lymphocytes % (Manual) Nucleated RBC % Seg Neutrophils # Seg Neutrophils # Man Lymphocytes # (Manual) Monocytes # (Manual) Eosinophils # (Manual) PT INR APTT D-Dimer Heparin Anti-Xa Level ABG pH POC ABG pCO2 65.7 H POC ABG pO2 ABG pO2 ABG HCO3 ABG O2 Saturation ABG Base Excess ABG Hemoglobin 11.9 L ABG Oxyhemoglobin ABG Sodium ABG Potassium ABG Chloride 93.0 L ABG Glucose 244 H Oxyhemoglobin Carboxyhemoglobin Sodium Potassium Chloride Carbon Dioxide BUN Creatinine Glucose POC Glucose 221 H 248 H Lactic Acid Calcium Magnesium Ferritin Total Bilirubin Direct Bilirubin AST ALT Alkaline Phosphatase Lactate Dehydrogenase C-Reactive Protein Total Protein Albumin Triglycerides Lipase Arterial Blood Glucose 244 H Arterial Blood Ionized Calcium Urine WBC (Auto) Coronavirus (PCR) SARS-CoV-2 IgG Ab Crossmatch 06/17/20 06/17/20 06/17/20 17:47 23:11 23:29 WBC RBC Hgb Hct MCV MCH MCHC RDW Lymph % (Auto) [place] % (Auto) Lymph # (Auto) [place] # (Auto) Baso # (Auto) Seg Neutrophils % Seg Neuts % (Manual) Lymphocytes % (Manual) Nucleated RBC % Seg Neutrophils # Seg Neutrophils # Man Lymphocytes # (Manual) Monocytes # (Manual) Eosinophils # (Manual) PT INR APTT D-Dimer Heparin Anti-Xa Level ABG pH POC ABG pCO2 85.2 H POC ABG pO2 48.4 L ABG pO2 ABG HCO3 ABG O2 Saturation ABG Base Excess ABG Hemoglobin 8.0 L ABG Oxyhemoglobin ABG Sodium ABG Potassium ABG Chloride 95.0 L ABG Glucose 292 H Oxyhemoglobin Carboxyhemoglobin Sodium Potassium Chloride Carbon Dioxide BUN Creatinine Glucose POC Glucose 245 H 252 H Lactic Acid Calcium Magnesium Ferritin Total Bilirubin Direct Bilirubin AST ALT Alkaline Phosphatase Lactate Dehydrogenase C-Reactive Protein Total Protein Albumin Triglycerides Lipase Arterial Blood Glucose 292 H Arterial Blood Ionized Calcium Urine WBC (Auto) Coronavirus (PCR) SARS-CoV-2 IgG Ab Crossmatch 06/18/20 06/18/20 06/18/20 03:14 05:34 11:47 WBC RBC Hgb Hct MCV MCH MCHC RDW Lymph % (Auto) [place] % (Auto) Lymph # (Auto) [place] # (Auto) Baso # (Auto) Seg Neutrophils % Seg Neuts % (Manual) Lymphocytes % (Manual) Nucleated RBC % Seg Neutrophils # Seg Neutrophils # Man Lymphocytes # (Manual) Monocytes # (Manual) Eosinophils # (Manual) PT INR APTT D-Dimer Heparin Anti-Xa Level ABG pH POC ABG pCO2 65.4 H POC ABG pO2 160.7 H ABG pO2 ABG HCO3 ABG O2 Saturation ABG Base Excess ABG Hemoglobin 7.8 L ABG Oxyhemoglobin ABG Sodium ABG Potassium ABG Chloride 95.0 L ABG Glucose 251 H Oxyhemoglobin Carboxyhemoglobin Sodium Potassium Chloride Carbon Dioxide BUN Creatinine Glucose POC Glucose 243 H 263 H Lactic Acid Calcium Magnesium Ferritin Total Bilirubin Direct Bilirubin AST ALT Alkaline Phosphatase Lactate Dehydrogenase C-Reactive Protein Total Protein Albumin Triglycerides Lipase Arterial Blood Glucose 251 H Arterial Blood Ionized Calcium Urine WBC (Auto) Coronavirus (PCR) SARS-CoV-2 IgG Ab Crossmatch 06/18/20 06/18/20 06/19/20 17:31 23:33 04:32 WBC RBC Hgb Hct MCV MCH MCHC RDW Lymph % (Auto) [place] % (Auto) Lymph # (Auto) [place] # (Auto) Baso # (Auto) Seg Neutrophils % Seg Neuts % (Manual) Lymphocytes % (Manual) Nucleated RBC % Seg Neutrophils # Seg Neutrophils # Man Lymphocytes # (Manual) Monocytes # (Manual) Eosinophils # (Manual) PT INR APTT D-Dimer Heparin Anti-Xa Level ABG pH POC ABG pCO2 83.1 H POC ABG pO2 65.8 L ABG pO2 ABG HCO3 ABG O2 Saturation ABG Base Excess ABG Hemoglobin 8.9 L ABG Oxyhemoglobin ABG Sodium ABG Potassium ABG Chloride 96.0 L ABG Glucose 297 H Oxyhemoglobin Carboxyhemoglobin Sodium Potassium Chloride Carbon Dioxide BUN Creatinine Glucose POC Glucose 286 H 238 H Lactic Acid Calcium Magnesium Ferritin Total Bilirubin Direct Bilirubin AST ALT Alkaline Phosphatase Lactate Dehydrogenase C-Reactive Protein Total Protein Albumin Triglycerides Lipase Arterial Blood Glucose 297 H Arterial Blood Ionized Calcium Urine WBC (Auto) Coronavirus (PCR) SARS-CoV-2 IgG Ab Crossmatch 06/19/20 06/19/20 06/19/20 05:55 11:20 17:12 WBC RBC Hgb Hct MCV MCH MCHC RDW Lymph % (Auto) [place] % (Auto) Lymph # (Auto) [place] # (Auto) Baso # (Auto) Seg Neutrophils % Seg Neuts % (Manual) Lymphocytes % (Manual) Nucleated RBC % Seg Neutrophils # Seg Neutrophils # Man Lymphocytes # (Manual) Monocytes # (Manual) Eosinophils # (Manual) PT INR APTT D-Dimer Heparin Anti-Xa Level ABG pH POC ABG pCO2 POC ABG pO2 ABG pO2 ABG HCO3 ABG O2 Saturation ABG Base Excess ABG Hemoglobin ABG Oxyhemoglobin ABG Sodium ABG Potassium ABG Chloride ABG Glucose Oxyhemoglobin Carboxyhemoglobin Sodium Potassium Chloride Carbon Dioxide BUN Creatinine Glucose POC Glucose 274 H 282 H 298 H Lactic Acid Calcium Magnesium Ferritin Total Bilirubin Direct Bilirubin AST ALT Alkaline Phosphatase Lactate Dehydrogenase C-Reactive Protein Total Protein Albumin Triglycerides Lipase Arterial Blood Glucose Arterial Blood Ionized Calcium Urine WBC (Auto) Coronavirus (PCR) SARS-CoV-2 IgG Ab Crossmatch 06/19/20 06/20/20 06/20/20 23:08 03:33 06:01 WBC RBC Hgb Hct MCV MCH MCHC RDW Lymph % (Auto) [place] % (Auto) Lymph # (Auto) [place] # (Auto) Baso # (Auto) Seg Neutrophils % Seg Neuts % (Manual) Lymphocytes % (Manual) Nucleated RBC % Seg Neutrophils # Seg Neutrophils # Man Lymphocytes # (Manual) Monocytes # (Manual) Eosinophils # (Manual) PT INR APTT D-Dimer Heparin Anti-Xa Level ABG pH POC ABG pCO2 POC ABG pO2 ABG pO2 69.9 L ABG HCO3 50.8 H ABG O2 Saturation ABG Base Excess 24.2 H ABG Hemoglobin 5.8 L ABG Oxyhemoglobin ABG Sodium ABG Potassium ABG Chloride ABG Glucose Oxyhemoglobin Carboxyhemoglobin Sodium Potassium Chloride Carbon Dioxide BUN Creatinine Glucose POC Glucose 293 H 182 H Lactic Acid Calcium Magnesium Ferritin Total Bilirubin Direct Bilirubin AST ALT Alkaline Phosphatase Lactate Dehydrogenase C-Reactive Protein Total Protein Albumin Triglycerides Lipase Arterial Blood Glucose Arterial Blood Ionized Calcium Urine WBC (Auto) Coronavirus (PCR) SARS-CoV-2 IgG Ab Crossmatch 06/20/20 06/20/20 06/20/20 11:47 17:46 23:37 WBC RBC Hgb Hct MCV MCH MCHC RDW Lymph % (Auto) [place] % (Auto) Lymph # (Auto) [place] # (Auto) Baso # (Auto) Seg Neutrophils % Seg Neuts % (Manual) Lymphocytes % (Manual) Nucleated RBC % Seg Neutrophils # Seg Neutrophils # Man Lymphocytes # (Manual) Monocytes # (Manual) Eosinophils # (Manual) PT INR APTT D-Dimer Heparin Anti-Xa Level ABG pH POC ABG pCO2 POC ABG pO2 ABG pO2 ABG HCO3 ABG O2 Saturation ABG Base Excess ABG Hemoglobin ABG Oxyhemoglobin ABG Sodium ABG Potassium ABG Chloride ABG Glucose Oxyhemoglobin Carboxyhemoglobin Sodium Potassium Chloride Carbon Dioxide BUN Creatinine Glucose POC Glucose 170 H 215 H 256 H Lactic Acid Calcium Magnesium Ferritin Total Bilirubin Direct Bilirubin AST ALT Alkaline Phosphatase Lactate Dehydrogenase C-Reactive Protein Total Protein Albumin Triglycerides Lipase Arterial Blood Glucose Arterial Blood Ionized Calcium Urine WBC (Auto) Coronavirus (PCR) SARS-CoV-2 IgG Ab Crossmatch 06/21/20 06/21/20 06/21/20 04:00 05:14 05:51 WBC RBC Hgb Hct MCV MCH MCHC RDW Lymph % (Auto) [place] % (Auto) Lymph # (Auto) [place] # (Auto) Baso # (Auto) Seg Neutrophils % Seg Neuts % (Manual) Lymphocytes % (Manual) Nucleated RBC % Seg Neutrophils # Seg Neutrophils # Man Lymphocytes # (Manual) Monocytes # (Manual) Eosinophils # (Manual) PT INR APTT D-Dimer Heparin Anti-Xa Level ABG pH 7.474 H POC ABG pCO2 POC ABG pO2 ABG pO2 ABG HCO3 52.1 H ABG O2 Saturation ABG Base Excess 23.3 H ABG Hemoglobin 5.3 L ABG Oxyhemoglobin ABG Sodium ABG Potassium ABG Chloride ABG Glucose Oxyhemoglobin 93.8 L Carboxyhemoglobin Sodium Potassium Chloride Carbon Dioxide BUN Creatinine Glucose POC Glucose 122 H 129 H Lactic Acid Calcium Magnesium Ferritin Total Bilirubin Direct Bilirubin AST ALT Alkaline Phosphatase Lactate Dehydrogenase C-Reactive Protein Total Protein Albumin Triglycerides Lipase Arterial Blood Glucose Arterial Blood Ionized Calcium Urine WBC (Auto) Coronavirus (PCR) SARS-CoV-2 IgG Ab Crossmatch 06/21/20 06/21/20 06/21/20 11:00 11:00 11:42 WBC 14.2 H RBC 1.85 L Hgb 6.2 L Hct 19.5 L* MCV 105 H MCH 34 H MCHC RDW 18.0 H Lymph % (Auto) [place] % (Auto) Lymph # (Auto) [place] # (Auto) Baso # (Auto) Seg Neutrophils % Seg Neuts % (Manual) Lymphocytes % (Manual) Nucleated RBC % Seg Neutrophils # Seg Neutrophils # Man Lymphocytes # (Manual) Monocytes # (Manual) Eosinophils # (Manual) PT INR APTT D-Dimer Heparin Anti-Xa Level ABG pH POC ABG pCO2 POC ABG pO2 ABG pO2 ABG HCO3 ABG O2 Saturation ABG Base Excess ABG Hemoglobin ABG Oxyhemoglobin ABG Sodium ABG Potassium ABG Chloride ABG Glucose Oxyhemoglobin Carboxyhemoglobin Sodium 147 H Potassium Chloride Carbon Dioxide 51 H* BUN 31 H Creatinine 0.5 L Glucose 224 H POC Glucose 217 H Lactic Acid Calcium Magnesium Ferritin Total Bilirubin Direct Bilirubin AST ALT Alkaline Phosphatase Lactate Dehydrogenase C-Reactive Protein Total Protein Albumin Triglycerides Lipase Arterial Blood Glucose Arterial Blood Ionized Calcium Urine WBC (Auto) Coronavirus (PCR) SARS-CoV-2 IgG Ab Crossmatch 06/21/20 06/21/20 06/21/20 14:18 14:30 18:36 WBC RBC Hgb Hct MCV MCH MCHC RDW Lymph % (Auto) [place] % (Auto) Lymph # (Auto) [place] # (Auto) Baso # (Auto) Seg Neutrophils % Seg Neuts % (Manual) Lymphocytes % (Manual) Nucleated RBC % Seg Neutrophils # Seg Neutrophils # Man Lymphocytes # (Manual) Monocytes # (Manual) Eosinophils # (Manual) PT 15.1 H INR 1.19 H APTT D-Dimer Heparin Anti-Xa Level ABG pH POC ABG pCO2 POC ABG pO2 ABG pO2 ABG HCO3 ABG O2 Saturation ABG Base Excess ABG Hemoglobin ABG Oxyhemoglobin ABG Sodium ABG Potassium ABG Chloride ABG Glucose Oxyhemoglobin Carboxyhemoglobin Sodium Potassium Chloride Carbon Dioxide BUN Creatinine Glucose POC Glucose 185 H Lactic Acid Calcium Magnesium Ferritin Total Bilirubin Direct Bilirubin AST ALT Alkaline Phosphatase Lactate Dehydrogenase C-Reactive Protein Total Protein Albumin Triglycerides Lipase Arterial Blood Glucose Arterial Blood Ionized Calcium Urine WBC (Auto) Coronavirus (PCR) SARS-CoV-2 IgG Ab Crossmatch See Detail 06/21/20 06/22/20 06/22/20 21:14 03:50 04:00 WBC RBC Hgb Hct MCV MCH MCHC RDW Lymph % (Auto) [place] % (Auto) Lymph # (Auto) [place] # (Auto) Baso # (Auto) Seg Neutrophils % Seg Neuts % (Manual) Lymphocytes % (Manual) Nucleated RBC % Seg Neutrophils # Seg Neutrophils # Man Lymphocytes # (Manual) Monocytes # (Manual) Eosinophils # (Manual) PT INR APTT D-Dimer Heparin Anti-Xa Level ABG pH 7.451 H POC ABG pCO2 POC ABG pO2 ABG pO2 ABG HCO3 47.5 H ABG O2 Saturation ABG Base Excess 22.0 H ABG Hemoglobin < 5.1 L ABG Oxyhemoglobin ABG Sodium ABG Potassium ABG Chloride ABG Glucose Oxyhemoglobin 94.1 L Carboxyhemoglobin Sodium 149 H Potassium 3.5 L Chloride Carbon Dioxide 42 H* D BUN 34 H Creatinine 0.4 L Glucose 219 H POC Glucose 250 H Lactic Acid Calcium Magnesium Ferritin Total Bilirubin Direct Bilirubin AST ALT Alkaline Phosphatase Lactate Dehydrogenase C-Reactive Protein Total Protein Albumin Triglycerides Lipase Arterial Blood Glucose Arterial Blood Ionized Calcium Urine WBC (Auto) Coronavirus (PCR) SARS-CoV-2 IgG Ab Crossmatch 12/06/22/20 06/22/20 12:16 14:29 17:56 WBC RBC Hgb Hct MCV MCH MCHC RDW Lymph % (Auto) [place] % (Auto) Lymph # (Auto) [place] # (Auto) Baso # (Auto) Seg Neutrophils % Seg Neuts % (Manual) Lymphocytes % (Manual) Nucleated RBC % Seg Neutrophils # Seg Neutrophils # Man Lymphocytes # (Manual) Monocytes # (Manual) Eosinophils # (Manual) PT 11.8 L INR APTT 23.5 L D-Dimer Heparin Anti-Xa Level ABG pH POC ABG pCO2 POC ABG pO2 ABG pO2 ABG HCO3 ABG O2 Saturation ABG Base Excess ABG Hemoglobin ABG Oxyhemoglobin ABG Sodium ABG Potassium ABG Chloride ABG Glucose Oxyhemoglobin Carboxyhemoglobin Sodium Potassium Chloride Carbon Dioxide BUN Creatinine Glucose POC Glucose 215 H 215 H Lactic Acid Calcium Magnesium Ferritin Total Bilirubin Direct Bilirubin AST ALT Alkaline Phosphatase Lactate Dehydrogenase C-Reactive Protein Total Protein Albumin Triglycerides Lipase Arterial Blood Glucose Arterial Blood Ionized Calcium Urine WBC (Auto) Coronavirus (PCR) SARS-CoV-2 IgG Ab Crossmatch 06/22/20 06/22/20 06/22/20 23:36 23:45 Unknown WBC 14.1 H RBC 2.70 L Hgb 8.9 L 8.9 L Hct 26.9 L 27.2 L D MCV 101 H MCH 33 H MCHC RDW 17.7 H Lymph % (Auto) [place] % (Auto) Lymph # (Auto) [place] # (Auto) Baso # (Auto) Seg Neutrophils % Seg Neuts % (Manual) 92.0 H Lymphocytes % (Manual) 5.0 L Nucleated RBC % Seg Neutrophils # Seg Neutrophils # Man 13.0 H Lymphocytes # (Manual) 0.7 L Monocytes # (Manual) Eosinophils # (Manual) PT INR APTT D-Dimer Heparin Anti-Xa Level ABG pH POC ABG pCO2 POC ABG pO2 ABG pO2 ABG HCO3 ABG O2 Saturation ABG Base Excess ABG Hemoglobin ABG Oxyhemoglobin ABG Sodium ABG Potassium ABG Chloride ABG Glucose Oxyhemoglobin Carboxyhemoglobin Sodium Potassium Chloride Carbon Dioxide BUN Creatinine Glucose POC Glucose 208 H Lactic Acid Calcium Magnesium Ferritin Total Bilirubin Direct Bilirubin AST ALT Alkaline Phosphatase Lactate Dehydrogenase C-Reactive Protein Total Protein Albumin Triglycerides Lipase Arterial Blood Glucose Arterial Blood Ionized Calcium Urine WBC (Auto) Coronavirus (PCR) SARS-CoV-2 IgG Ab Crossmatch 06/23/20 06/23/20 06/23/20 05:17 05:19 06:50 WBC RBC Hgb Hct MCV MCH MCHC RDW Lymph % (Auto) [place] % (Auto) Lymph # (Auto) [place] # (Auto) Baso # (Auto) Seg Neutrophils % Seg Neuts % (Manual) Lymphocytes % (Manual) Nucleated RBC % Seg Neutrophils # Seg Neutrophils # Man Lymphocytes # (Manual) Monocytes # (Manual) Eosinophils # (Manual) PT INR APTT D-Dimer Heparin Anti-Xa Level ABG pH POC ABG pCO2 69.7 H POC ABG pO2 63.3 L ABG pO2 ABG HCO3 ABG O2 Saturation ABG Base Excess ABG Hemoglobin 10.1 L ABG Oxyhemoglobin ABG Sodium ABG Potassium 3.3 L ABG Chloride ABG Glucose 226 H Oxyhemoglobin Carboxyhemoglobin Sodium Potassium 3.0 L Chloride Carbon Dioxide 41 H* BUN 26 H Creatinine 0.4 L Glucose 209 H POC Glucose 200 H Lactic Acid Calcium Magnesium Ferritin Total Bilirubin Direct Bilirubin AST ALT Alkaline Phosphatase Lactate Dehydrogenase C-Reactive Protein Total Protein Albumin 2.9 L Triglycerides Lipase Arterial Blood Glucose 226 H Arterial Blood Ionized Calcium Urine WBC (Auto) Coronavirus (PCR) SARS-CoV-2 IgG Ab Crossmatch 06/23/20 06/23/20 06/23/20 09:41 12:04 18:16 WBC RBC Hgb 9.1 L Hct 28.0 L MCV MCH MCHC RDW Lymph % (Auto) [place] % (Auto) Lymph # (Auto) [place] # (Auto) Baso # (Auto) Seg Neutrophils % Seg Neuts % (Manual) Lymphocytes % (Manual) Nucleated RBC % Seg Neutrophils # Seg Neutrophils # Man Lymphocytes # (Manual) Monocytes # (Manual) Eosinophils # (Manual) PT INR APTT D-Dimer Heparin Anti-Xa Level ABG pH POC ABG pCO2 POC ABG pO2 ABG pO2 ABG HCO3 ABG O2 Saturation ABG Base Excess ABG Hemoglobin ABG Oxyhemoglobin ABG Sodium ABG Potassium ABG Chloride ABG Glucose Oxyhemoglobin Carboxyhemoglobin Sodium Potassium Chloride Carbon Dioxide BUN Creatinine Glucose POC Glucose 146 H 162 H Lactic Acid Calcium Magnesium Ferritin Total Bilirubin Direct Bilirubin AST ALT Alkaline Phosphatase Lactate Dehydrogenase C-Reactive Protein Total Protein Albumin Triglycerides Lipase Arterial Blood Glucose Arterial Blood Ionized Calcium Urine WBC (Auto) Coronavirus (PCR) SARS-CoV-2 IgG Ab Crossmatch 06/23/20 06/23/20 06/24/20 23:24 23:41 02:39 WBC RBC Hgb 8.2 L 8.8 L Hct 24.9 L 26.8 L MCV MCH MCHC RDW Lymph % (Auto) [place] % (Auto) Lymph # (Auto) [place] # (Auto) Baso # (Auto) Seg Neutrophils % Seg Neuts % (Manual) Lymphocytes % (Manual) Nucleated RBC % Seg Neutrophils # Seg Neutrophils # Man Lymphocytes # (Manual) Monocytes # (Manual) Eosinophils # (Manual) PT INR APTT D-Dimer Heparin Anti-Xa Level ABG pH POC ABG pCO2 POC ABG pO2 ABG pO2 ABG HCO3 ABG O2 Saturation ABG Base Excess ABG Hemoglobin ABG Oxyhemoglobin ABG Sodium ABG Potassium ABG Chloride ABG Glucose Oxyhemoglobin Carboxyhemoglobin Sodium Potassium Chloride Carbon Dioxide BUN Creatinine Glucose POC Glucose 248 H Lactic Acid Calcium Magnesium Ferritin Total Bilirubin Direct Bilirubin AST ALT Alkaline Phosphatase Lactate Dehydrogenase C-Reactive Protein Total Protein Albumin Triglycerides Lipase Arterial Blood Glucose Arterial Blood Ionized Calcium Urine WBC (Auto) Coronavirus (PCR) SARS-CoV-2 IgG Ab Crossmatch 06/24/20 06/24/20 06/24/20 02:39 02:45 05:31 WBC RBC Hgb Hct MCV MCH MCHC RDW Lymph % (Auto) [place] % (Auto) Lymph # (Auto) [place] # (Auto) Baso # (Auto) Seg Neutrophils % Seg Neuts % (Manual) Lymphocytes % (Manual) Nucleated RBC % Seg Neutrophils # Seg Neutrophils # Man Lymphocytes # (Manual) Monocytes # (Manual) Eosinophils # (Manual) PT INR APTT D-Dimer Heparin Anti-Xa Level ABG pH POC ABG pCO2 66.9 H POC ABG pO2 109.7 H ABG pO2 ABG HCO3 ABG O2 Saturation ABG Base Excess ABG Hemoglobin 9.7 L ABG Oxyhemoglobin ABG Sodium 135.0 L ABG Potassium ABG Chloride 97.0 L ABG Glucose 277 H Oxyhemoglobin Carboxyhemoglobin Sodium 136 L Potassium Chloride 95.0 L Carbon Dioxide 34 H D BUN 24 H Creatinine 0.3 L Glucose 260 H POC Glucose 164 H Lactic Acid Calcium Magnesium Ferritin Total Bilirubin Direct Bilirubin AST ALT Alkaline Phosphatase Lactate Dehydrogenase C-Reactive Protein Total Protein 5.2 L Albumin 2.6 L Triglycerides Lipase Arterial Blood Glucose 277 H Arterial Blood Ionized Calcium Urine WBC (Auto) Coronavirus (PCR) SARS-CoV-2 IgG Ab Crossmatch 06/24/20 06/24/20 06/24/20 10:00 11:49 17:39 WBC RBC Hgb 8.9 L Hct 26.5 L MCV MCH MCHC RDW Lymph % (Auto) [place] % (Auto) Lymph # (Auto) [place] # (Auto) Baso # (Auto) Seg Neutrophils % Seg Neuts % (Manual) Lymphocytes % (Manual) Nucleated RBC % Seg Neutrophils # Seg Neutrophils # Man Lymphocytes # (Manual) Monocytes # (Manual) Eosinophils # (Manual) PT INR APTT D-Dimer Heparin Anti-Xa Level ABG pH POC ABG pCO2 POC ABG pO2 ABG pO2 ABG HCO3 ABG O2 Saturation ABG Base Excess ABG Hemoglobin ABG Oxyhemoglobin ABG Sodium ABG Potassium ABG Chloride ABG Glucose Oxyhemoglobin Carboxyhemoglobin Sodium Potassium Chloride Carbon Dioxide BUN Creatinine Glucose POC Glucose 198 H 223 H Lactic Acid Calcium Magnesium Ferritin Total Bilirubin Direct Bilirubin AST ALT Alkaline Phosphatase Lactate Dehydrogenase C-Reactive Protein Total Protein Albumin Triglycerides Lipase Arterial Blood Glucose Arterial Blood Ionized Calcium Urine WBC (Auto) Coronavirus (PCR) SARS-CoV-2 IgG Ab Crossmatch 06/24/20 06/25/20 06/25/20 23:56 02:16 04:08 WBC RBC Hgb Hct MCV MCH MCHC RDW Lymph % (Auto) [place] % (Auto) Lymph # (Auto) [place] # (Auto) Baso # (Auto) Seg Neutrophils % Seg Neuts % (Manual) Lymphocytes % (Manual) Nucleated RBC % Seg Neutrophils # Seg Neutrophils # Man Lymphocytes # (Manual) Monocytes # (Manual) Eosinophils # (Manual) PT INR APTT D-Dimer Heparin Anti-Xa Level ABG pH 7.454 H POC ABG pCO2 56.9 H POC ABG pO2 61.0 L ABG pO2 ABG HCO3 ABG O2 Saturation ABG Base Excess ABG Hemoglobin ABG Oxyhemoglobin ABG Sodium 134.3 L ABG Potassium ABG Chloride 92.0 L ABG Glucose 246 H Oxyhemoglobin Carboxyhemoglobin Sodium 134 L Potassium Chloride 89.7 L Carbon Dioxide 36 H BUN Creatinine 0.3 L Glucose 254 H POC Glucose 225 H Lactic Acid Calcium Magnesium Ferritin Total Bilirubin Direct Bilirubin AST ALT Alkaline Phosphatase Lactate Dehydrogenase C-Reactive Protein Total Protein Albumin 2.9 L Triglycerides Lipase Arterial Blood Glucose 246 H Arterial Blood Ionized Calcium Urine WBC (Auto) Coronavirus (PCR) SARS-CoV-2 IgG Ab Crossmatch 06/25/20 06/25/20 06/25/20 05:44 11:35 17:33 WBC RBC Hgb Hct MCV MCH MCHC RDW Lymph % (Auto) [place] % (Auto) Lymph # (Auto) [place] # (Auto) Baso # (Auto) Seg Neutrophils % Seg Neuts % (Manual) Lymphocytes % (Manual) Nucleated RBC % Seg Neutrophils # Seg Neutrophils # Man Lymphocytes # (Manual) Monocytes # (Manual) Eosinophils # (Manual) PT INR APTT D-Dimer Heparin Anti-Xa Level ABG pH POC ABG pCO2 POC ABG pO2 ABG pO2 ABG HCO3 ABG O2 Saturation ABG Base Excess ABG Hemoglobin ABG Oxyhemoglobin ABG Sodium ABG Potassium ABG Chloride ABG Glucose Oxyhemoglobin Carboxyhemoglobin Sodium Potassium Chloride Carbon Dioxide BUN Creatinine Glucose POC Glucose 170 H 175 H 229 H Lactic Acid Calcium Magnesium Ferritin Total Bilirubin Direct Bilirubin AST ALT Alkaline Phosphatase Lactate Dehydrogenase C-Reactive Protein Total Protein Albumin Triglycerides Lipase Arterial Blood Glucose Arterial Blood Ionized Calcium Urine WBC (Auto) Coronavirus (PCR) SARS-CoV-2 IgG Ab Crossmatch 06/25/20 06/26/20 06/26/20 23:55 02:17 02:17 WBC RBC Hgb 10.0 L Hct 30.4 L MCV MCH MCHC RDW Lymph % (Auto) [place] % (Auto) Lymph # (Auto) [place] # (Auto) Baso # (Auto) Seg Neutrophils % Seg Neuts % (Manual) Lymphocytes % (Manual) Nucleated RBC % Seg Neutrophils # Seg Neutrophils # Man Lymphocytes # (Manual) Monocytes # (Manual) Eosinophils # (Manual) PT INR APTT D-Dimer Heparin Anti-Xa Level ABG pH POC ABG pCO2 POC ABG pO2 ABG pO2 ABG HCO3 ABG O2 Saturation ABG Base Excess ABG Hemoglobin ABG Oxyhemoglobin ABG Sodium ABG Potassium ABG Chloride ABG Glucose Oxyhemoglobin Carboxyhemoglobin Sodium 136 L Potassium Chloride 90.1 L Carbon Dioxide 39 H BUN Creatinine 0.2 L Glucose 232 H POC Glucose 192 H Lactic Acid Calcium Magnesium Ferritin Total Bilirubin Direct Bilirubin AST ALT Alkaline Phosphatase Lactate Dehydrogenase C-Reactive Protein Total Protein 6.1 L Albumin 2.9 L Triglycerides Lipase Arterial Blood Glucose Arterial Blood Ionized Calcium Urine WBC (Auto) Coronavirus (PCR) SARS-CoV-2 IgG Ab Crossmatch 06/26/20 06/26/20 06/26/20 04:15 04:49 05:28 WBC RBC Hgb Hct MCV MCH MCHC RDW Lymph % (Auto) [place] % (Auto) Lymph # (Auto) [place] # (Auto) Baso # (Auto) Seg Neutrophils % Seg Neuts % (Manual) Lymphocytes % (Manual) Nucleated RBC % Seg Neutrophils # Seg Neutrophils # Man Lymphocytes # (Manual) Monocytes # (Manual) Eosinophils # (Manual) PT INR APTT D-Dimer Heparin Anti-Xa Level ABG pH 7.453 H POC ABG pCO2 59.6 H POC ABG pO2 ABG pO2 ABG HCO3 ABG O2 Saturation ABG Base Excess ABG Hemoglobin 10.0 L ABG Oxyhemoglobin ABG Sodium 134.2 L ABG Potassium 3.3 L ABG Chloride 92.0 L ABG Glucose 305 H Oxyhemoglobin Carboxyhemoglobin Sodium Potassium Chloride Carbon Dioxide BUN Creatinine Glucose POC Glucose 234 H Lactic Acid Calcium Magnesium Ferritin Total Bilirubin Direct Bilirubin AST ALT Alkaline Phosphatase Lactate Dehydrogenase C-Reactive Protein Total Protein Albumin Triglycerides 203 H Lipase Arterial Blood Glucose 305 H Arterial Blood Ionized Calcium Urine WBC (Auto) Coronavirus (PCR) SARS-CoV-2 IgG Ab Crossmatch 06/26/20 06/26/20 06/26/20 11:58 17:58 21:32 WBC RBC Hgb Hct MCV MCH MCHC RDW Lymph % (Auto) [place] % (Auto) Lymph # (Auto) [place] # (Auto) Baso # (Auto) Seg Neutrophils % Seg Neuts % (Manual) Lymphocytes % (Manual) Nucleated RBC % Seg Neutrophils # Seg Neutrophils # Man Lymphocytes # (Manual) Monocytes # (Manual) Eosinophils # (Manual) PT INR APTT D-Dimer Heparin Anti-Xa Level ABG pH POC ABG pCO2 POC ABG pO2 ABG pO2 ABG HCO3 ABG O2 Saturation ABG Base Excess ABG Hemoglobin ABG Oxyhemoglobin ABG Sodium ABG Potassium ABG Chloride ABG Glucose Oxyhemoglobin Carboxyhemoglobin Sodium Potassium Chloride Carbon Dioxide BUN Creatinine Glucose POC Glucose 198 H 193 H 191 H Lactic Acid Calcium Magnesium Ferritin Total Bilirubin Direct Bilirubin AST ALT Alkaline Phosphatase Lactate Dehydrogenase C-Reactive Protein Total Protein Albumin Triglycerides Lipase Arterial Blood Glucose Arterial Blood Ionized Calcium Urine WBC (Auto) Coronavirus (PCR) SARS-CoV-2 IgG Ab Crossmatch 06/26/20 06/27/20 06/27/20 23:40 04:35 05:32 WBC RBC Hgb Hct MCV MCH MCHC RDW Lymph % (Auto) [place] % (Auto) Lymph # (Auto) [place] # (Auto) Baso # (Auto) Seg Neutrophils % Seg Neuts % (Manual) Lymphocytes % (Manual) Nucleated RBC % Seg Neutrophils # Seg Neutrophils # Man Lymphocytes # (Manual) Monocytes # (Manual) Eosinophils # (Manual) PT INR APTT D-Dimer Heparin Anti-Xa Level ABG pH 7.464 H POC ABG pCO2 60.8 H POC ABG pO2 ABG pO2 ABG HCO3 ABG O2 Saturation ABG Base Excess ABG Hemoglobin 10.1 L ABG Oxyhemoglobin ABG Sodium ABG Potassium 2.9 L ABG Chloride 92.0 L ABG Glucose 298 H Oxyhemoglobin Carboxyhemoglobin Sodium Potassium Chloride Carbon Dioxide BUN Creatinine Glucose POC Glucose 241 H 211 H Lactic Acid Calcium Magnesium Ferritin Total Bilirubin Direct Bilirubin AST ALT Alkaline Phosphatase Lactate Dehydrogenase C-Reactive Protein Total Protein Albumin Triglycerides Lipase Arterial Blood Glucose 298 H Arterial Blood Ionized Calcium Urine WBC (Auto) Coronavirus (PCR) SARS-CoV-2 IgG Ab Crossmatch 06/27/20 06/27/20 06/27/20 12:37 18:08 20:52 WBC RBC Hgb Hct MCV MCH MCHC RDW Lymph % (Auto) [place] % (Auto) Lymph # (Auto) [place] # (Auto) Baso # (Auto) Seg Neutrophils % Seg Neuts % (Manual) Lymphocytes % (Manual) Nucleated RBC % Seg Neutrophils # Seg Neutrophils # Man Lymphocytes # (Manual) Monocytes # (Manual) Eosinophils # (Manual) PT INR APTT D-Dimer Heparin Anti-Xa Level ABG pH POC ABG pCO2 POC ABG pO2 ABG pO2 ABG HCO3 ABG O2 Saturation ABG Base Excess ABG Hemoglobin ABG Oxyhemoglobin ABG Sodium ABG Potassium ABG Chloride ABG Glucose Oxyhemoglobin Carboxyhemoglobin Sodium Potassium Chloride Carbon Dioxide BUN Creatinine Glucose POC Glucose 182 H 197 H 195 H Lactic Acid Calcium Magnesium Ferritin Total Bilirubin Direct Bilirubin AST ALT Alkaline Phosphatase Lactate Dehydrogenase C-Reactive Protein Total Protein Albumin Triglycerides Lipase Arterial Blood Glucose Arterial Blood Ionized Calcium Urine WBC (Auto) Coronavirus (PCR) SARS-CoV-2 IgG Ab Crossmatch 12/06/28/20 06/28/20 Unknown 04:17 04:50 WBC RBC Hgb Hct MCV MCH MCHC RDW Lymph % (Auto) [place] % (Auto) Lymph # (Auto) [place] # (Auto) Baso # (Auto) Seg Neutrophils % Seg Neuts % (Manual) Lymphocytes % (Manual) Nucleated RBC % Seg Neutrophils # Seg Neutrophils # Man Lymphocytes # (Manual) Monocytes # (Manual) Eosinophils # (Manual) PT INR APTT D-Dimer Heparin Anti-Xa Level ABG pH POC ABG pCO2 58.6 H POC ABG pO2 60.1 L ABG pO2 ABG HCO3 ABG O2 Saturation ABG Base Excess ABG Hemoglobin 10.0 L ABG Oxyhemoglobin ABG Sodium 125.3 L ABG Potassium ABG Chloride 93.0 L ABG Glucose 308 H Oxyhemoglobin Carboxyhemoglobin Sodium Potassium 2.9 L* Chloride 93.4 L Carbon Dioxide 42 H* BUN Creatinine 0.3 L Glucose 211 H POC Glucose 252 H Lactic Acid Calcium 8.1 L Magnesium Ferritin Total Bilirubin Direct Bilirubin AST ALT Alkaline Phosphatase Lactate Dehydrogenase C-Reactive Protein Total Protein 5.1 L Albumin 2.4 L Triglycerides Lipase Arterial Blood Glucose 308 H Arterial Blood Ionized Calcium Urine WBC (Auto) Coronavirus (PCR) SARS-CoV-2 IgG Ab Crossmatch 06/28/20 06/28/20 06/28/20 06:35 06:35 11:36 WBC 18.9 H RBC 2.85 L Hgb 9.5 L Hct 28.4 L MCV 100 H MCH 33 H MCHC RDW 17.3 H Lymph % (Auto) [place] % (Auto) Lymph # (Auto) [place] # (Auto) Baso # (Auto) Seg Neutrophils % 88.6 H Seg Neuts % (Manual) 95.0 H Lymphocytes % (Manual) 1.0 L Nucleated RBC % Seg Neutrophils # 15.9 H Seg Neutrophils # Man 18.0 H Lymphocytes # (Manual) 0.2 L Monocytes # (Manual) Eosinophils # (Manual) PT INR APTT D-Dimer Heparin Anti-Xa Level ABG pH POC ABG pCO2 POC ABG pO2 ABG pO2 ABG HCO3 ABG O2 Saturation ABG Base Excess ABG Hemoglobin ABG Oxyhemoglobin ABG Sodium ABG Potassium ABG Chloride ABG Glucose Oxyhemoglobin Carboxyhemoglobin Sodium Potassium Chloride 94.2 L Carbon Dioxide 38 H BUN Creatinine 0.3 L Glucose 228 H POC Glucose 243 H Lactic Acid Calcium Magnesium Ferritin Total Bilirubin Direct Bilirubin AST ALT Alkaline Phosphatase Lactate Dehydrogenase C-Reactive Protein Total Protein 6.1 L Albumin 2.7 L Triglycerides Lipase Arterial Blood Glucose Arterial Blood Ionized Calcium Urine WBC (Auto) Coronavirus (PCR) SARS-CoV-2 IgG Ab Crossmatch 06/28/20 06/28/20 06/29/20 16:53 21:10 00:06 WBC RBC Hgb Hct MCV MCH MCHC RDW Lymph % (Auto) [place] % (Auto) Lymph # (Auto) [place] # (Auto) Baso # (Auto) Seg Neutrophils % Seg Neuts % (Manual) Lymphocytes % (Manual) Nucleated RBC % Seg Neutrophils # Seg Neutrophils # Man Lymphocytes # (Manual) Monocytes # (Manual) Eosinophils # (Manual) PT INR APTT D-Dimer Heparin Anti-Xa Level ABG pH POC ABG pCO2 POC ABG pO2 ABG pO2 ABG HCO3 ABG O2 Saturation ABG Base Excess ABG Hemoglobin ABG Oxyhemoglobin ABG Sodium ABG Potassium ABG Chloride ABG Glucose Oxyhemoglobin Carboxyhemoglobin Sodium Potassium Chloride Carbon Dioxide BUN Creatinine Glucose POC Glucose 211 H 195 H 200 H Lactic Acid Calcium Magnesium Ferritin Total Bilirubin Direct Bilirubin AST ALT Alkaline Phosphatase Lactate Dehydrogenase C-Reactive Protein Total Protein Albumin Triglycerides Lipase Arterial Blood Glucose Arterial Blood Ionized Calcium Urine WBC (Auto) Coronavirus (PCR) SARS-CoV-2 IgG Ab Crossmatch 06/29/20 06/29/20 06/29/20 03:11 04:00 04:00 WBC 18.8 H RBC 2.82 L Hgb 10.1 L Hct 28.5 L MCV 101 H MCH 36 H MCHC 36 H RDW 17.5 H Lymph % (Auto) 10.7 L [place] % (Auto) Lymph # (Auto) [place] # (Auto) 1.0 H Baso # (Auto) 0.3 H Seg Neutrophils % 82.2 H Seg Neuts % (Manual) Lymphocytes % (Manual) Nucleated RBC % Seg Neutrophils # 15.5 H Seg Neutrophils # Man Lymphocytes # (Manual) Monocytes # (Manual) Eosinophils # (Manual) PT INR APTT D-Dimer Heparin Anti-Xa Level ABG pH POC ABG pCO2 57.5 H POC ABG pO2 69.1 L ABG pO2 ABG HCO3 ABG O2 Saturation ABG Base Excess ABG Hemoglobin 10.2 L ABG Oxyhemoglobin 92.3 L ABG Sodium 130.7 L ABG Potassium 3.2 L ABG Chloride 93.0 L ABG Glucose 228 H Oxyhemoglobin Carboxyhemoglobin Sodium 134 L Potassium 3.3 L Chloride 89.5 L Carbon Dioxide 40 H BUN Creatinine 0.2 L Glucose 190 H POC Glucose Lactic Acid Calcium Magnesium Ferritin Total Bilirubin Direct Bilirubin AST < 5 L ALT < 5 L Alkaline Phosphatase Lactate Dehydrogenase C-Reactive Protein Total Protein 5.9 L Albumin 2.2 L Triglycerides Lipase Arterial Blood Glucose 228 H Arterial Blood Ionized Calcium Urine WBC (Auto) Coronavirus (PCR) SARS-CoV-2 IgG Ab Crossmatch 06/29/20 06/29/20 06/29/20 05:00 05:23 09:36 WBC RBC Hgb Hct MCV MCH MCHC RDW Lymph % (Auto) [place] % (Auto) Lymph # (Auto) [place] # (Auto) Baso # (Auto) Seg Neutrophils % Seg Neuts % (Manual) Lymphocytes % (Manual) Nucleated RBC % Seg Neutrophils # Seg Neutrophils # Man Lymphocytes # (Manual) Monocytes # (Manual) Eosinophils # (Manual) PT INR APTT D-Dimer Heparin Anti-Xa Level ABG pH POC ABG pCO2 POC ABG pO2 ABG pO2 ABG HCO3 ABG O2 Saturation ABG Base Excess ABG Hemoglobin ABG Oxyhemoglobin ABG Sodium ABG Potassium ABG Chloride ABG Glucose Oxyhemoglobin Carboxyhemoglobin Sodium Potassium Chloride Carbon Dioxide BUN Creatinine Glucose POC Glucose 165 H Lactic Acid Calcium Magnesium Ferritin Total Bilirubin Direct Bilirubin AST ALT Alkaline Phosphatase Lactate Dehydrogenase C-Reactive Protein Total Protein Albumin Triglycerides 1544 H 1799 H Lipase Arterial Blood Glucose Arterial Blood Ionized Calcium Urine WBC (Auto) Coronavirus (PCR) SARS-CoV-2 IgG Ab Crossmatch 06/29/20 06/29/20 06/29/20 09:36 12:02 18:00 WBC RBC Hgb Hct MCV MCH MCHC RDW Lymph % (Auto) [place] % (Auto) Lymph # (Auto) [place] # (Auto) Baso # (Auto) Seg Neutrophils % Seg Neuts % (Manual) Lymphocytes % (Manual) Nucleated RBC % Seg Neutrophils # Seg Neutrophils # Man Lymphocytes # (Manual) Monocytes # (Manual) Eosinophils # (Manual) PT INR APTT D-Dimer Heparin Anti-Xa Level ABG pH POC ABG pCO2 POC ABG pO2 ABG pO2 ABG HCO3 ABG O2 Saturation ABG Base Excess ABG Hemoglobin ABG Oxyhemoglobin ABG Sodium ABG Potassium ABG Chloride ABG Glucose Oxyhemoglobin Carboxyhemoglobin Sodium Potassium Chloride Carbon Dioxide BUN Creatinine Glucose POC Glucose 197 H 187 H Lactic Acid Calcium Magnesium Ferritin Total Bilirubin Direct Bilirubin AST ALT Alkaline Phosphatase Lactate Dehydrogenase C-Reactive Protein Total Protein Albumin Triglycerides Lipase 86 H Arterial Blood Glucose Arterial Blood Ionized Calcium Urine WBC (Auto) Coronavirus (PCR) SARS-CoV-2 IgG Ab Crossmatch 06/29/20 06/30/20 06/30/20 23:33 03:46 05:50 WBC RBC Hgb Hct MCV MCH MCHC RDW Lymph % (Auto) [place] % (Auto) Lymph # (Auto) [place] # (Auto) Baso # (Auto) Seg Neutrophils % Seg Neuts % (Manual) Lymphocytes % (Manual) Nucleated RBC % Seg Neutrophils # Seg Neutrophils # Man Lymphocytes # (Manual) Monocytes # (Manual) Eosinophils # (Manual) PT INR APTT D-Dimer Heparin Anti-Xa Level ABG pH 7.466 H POC ABG pCO2 57.3 H POC ABG pO2 66.1 L ABG pO2 ABG HCO3 ABG O2 Saturation ABG Base Excess ABG Hemoglobin 10.2 L ABG Oxyhemoglobin 92.3 L ABG Sodium 134.4 L ABG Potassium 3.2 L ABG Chloride 94.0 L ABG Glucose 178 H Oxyhemoglobin Carboxyhemoglobin Sodium Potassium Chloride Carbon Dioxide BUN Creatinine Glucose POC Glucose 170 H 170 H Lactic Acid Calcium Magnesium Ferritin Total Bilirubin Direct Bilirubin AST ALT Alkaline Phosphatase Lactate Dehydrogenase C-Reactive Protein Total Protein Albumin Triglycerides Lipase Arterial Blood Glucose 178 H Arterial Blood Ionized Calcium Urine WBC (Auto) Coronavirus (PCR) SARS-CoV-2 IgG Ab Crossmatch 06/30/20 06/30/20 06/30/20 07:00 07:00 12:04 WBC 15.6 H RBC 2.91 L Hgb 9.8 L Hct 29.7 L MCV 102 H MCH 34 H MCHC RDW 17.8 H Lymph % (Auto) [place] % (Auto) Lymph # (Auto) [place] # (Auto) Baso # (Auto) Seg Neutrophils % Seg Neuts % (Manual) Lymphocytes % (Manual) 5.0 L Nucleated RBC % Seg Neutrophils # Seg Neutrophils # Man 14.8 H Lymphocytes # (Manual) 0.8 L Monocytes # (Manual) Eosinophils # (Manual) PT INR APTT D-Dimer Heparin Anti-Xa Level ABG pH POC ABG pCO2 POC ABG pO2 ABG pO2 ABG HCO3 ABG O2 Saturation ABG Base Excess ABG Hemoglobin ABG Oxyhemoglobin ABG Sodium ABG Potassium ABG Chloride ABG Glucose Oxyhemoglobin Carboxyhemoglobin Sodium Potassium Chloride 93.3 L Carbon Dioxide 43 H* BUN Creatinine 0.3 L Glucose 260 H POC Glucose 245 H Lactic Acid Calcium Magnesium Ferritin Total Bilirubin Direct Bilirubin AST ALT Alkaline Phosphatase Lactate Dehydrogenase C-Reactive Protein Total Protein Albumin 2.8 L Triglycerides 452 H Lipase Arterial Blood Glucose Arterial Blood Ionized Calcium Urine WBC (Auto) Coronavirus (PCR) SARS-CoV-2 IgG Ab Crossmatch 06/30/20 07/01/20 07/01/20 17:32 00:02 05:02 WBC RBC Hgb Hct MCV MCH MCHC RDW Lymph % (Auto) [place] % (Auto) Lymph # (Auto) [place] # (Auto) Baso # (Auto) Seg Neutrophils % Seg Neuts % (Manual) Lymphocytes % (Manual) Nucleated RBC % Seg Neutrophils # Seg Neutrophils # Man Lymphocytes # (Manual) Monocytes # (Manual) Eosinophils # (Manual) PT INR APTT D-Dimer Heparin Anti-Xa Level ABG pH POC ABG pCO2 58.1 H POC ABG pO2 ABG pO2 ABG HCO3 ABG O2 Saturation ABG Base Excess ABG Hemoglobin 11.2 L ABG Oxyhemoglobin ABG Sodium 132.7 L ABG Potassium ABG Chloride 92.0 L ABG Glucose 238 H Oxyhemoglobin Carboxyhemoglobin Sodium Potassium Chloride Carbon Dioxide BUN Creatinine Glucose POC Glucose 209 H 208 H Lactic Acid Calcium Magnesium Ferritin Total Bilirubin Direct Bilirubin AST ALT Alkaline Phosphatase Lactate Dehydrogenase C-Reactive Protein Total Protein Albumin Triglycerides Lipase Arterial Blood Glucose 238 H Arterial Blood Ionized Calcium Urine WBC (Auto) Coronavirus (PCR) SARS-CoV-2 IgG Ab Crossmatch 07/01/20 07/01/20 07/01/20 06:16 06:41 06:41 WBC 18.1 H RBC 2.33 L Hgb 7.1 L Hct 21.3 L D MCV MCH MCHC RDW Lymph % (Auto) [place] % (Auto) Lymph # (Auto) [place] # (Auto) Baso # (Auto) Seg Neutrophils % Seg Neuts % (Manual) 82.0 H Lymphocytes % (Manual) 7.0 L Nucleated RBC % 1.0 H Seg Neutrophils # Seg Neutrophils # Man 14.8 H Lymphocytes # (Manual) Monocytes # (Manual) 1.1 H Eosinophils # (Manual) 0.5 H PT INR APTT D-Dimer Heparin Anti-Xa Level < 0.10 L ABG pH POC ABG pCO2 POC ABG pO2 ABG pO2 ABG HCO3 ABG O2 Saturation ABG Base Excess ABG Hemoglobin ABG Oxyhemoglobin ABG Sodium ABG Potassium ABG Chloride ABG Glucose Oxyhemoglobin Carboxyhemoglobin Sodium Potassium Chloride Carbon Dioxide BUN Creatinine Glucose POC Glucose 180 H Lactic Acid Calcium Magnesium Ferritin Total Bilirubin Direct Bilirubin AST ALT Alkaline Phosphatase Lactate Dehydrogenase C-Reactive Protein Total Protein Albumin Triglycerides Lipase Arterial Blood Glucose Arterial Blood Ionized Calcium Urine WBC (Auto) Coronavirus (PCR) SARS-CoV-2 IgG Ab Crossmatch 07/01/20 07/01/20 07/01/20 08:11 12:04 16:16 WBC RBC Hgb Hct MCV MCH MCHC RDW Lymph % (Auto) [place] % (Auto) Lymph # (Auto) [place] # (Auto) Baso # (Auto) Seg Neutrophils % Seg Neuts % (Manual) Lymphocytes % (Manual) Nucleated RBC % Seg Neutrophils # Seg Neutrophils # Man Lymphocytes # (Manual) Monocytes # (Manual) Eosinophils # (Manual) PT INR APTT D-Dimer Heparin Anti-Xa Level 1.02 H ABG pH POC ABG pCO2 POC ABG pO2 ABG pO2 ABG HCO3 ABG O2 Saturation ABG Base Excess ABG Hemoglobin ABG Oxyhemoglobin ABG Sodium ABG Potassium ABG Chloride ABG Glucose Oxyhemoglobin Carboxyhemoglobin Sodium 135 L Potassium 3.0 L Chloride 93.1 L Carbon Dioxide 40 H BUN Creatinine 0.3 L Glucose 140 H POC Glucose 223 H Lactic Acid Calcium Magnesium Ferritin Total Bilirubin Direct Bilirubin AST ALT Alkaline Phosphatase Lactate Dehydrogenase C-Reactive Protein Total Protein Albumin Triglycerides Lipase Arterial Blood Glucose Arterial Blood Ionized Calcium Urine WBC (Auto) Coronavirus (PCR) SARS-CoV-2 IgG Ab Crossmatch 07/01/20 07/01/20 07/02/20 17:09 23:19 00:56 WBC RBC Hgb Hct MCV MCH MCHC RDW Lymph % (Auto) [place] % (Auto) Lymph # (Auto) [place] # (Auto) Baso # (Auto) Seg Neutrophils % Seg Neuts % (Manual) Lymphocytes % (Manual) Nucleated RBC % Seg Neutrophils # Seg Neutrophils # Man Lymphocytes # (Manual) Monocytes # (Manual) Eosinophils # (Manual) PT INR APTT D-Dimer Heparin Anti-Xa Level 0.22 L ABG pH POC ABG pCO2 POC ABG pO2 ABG pO2 ABG HCO3 ABG O2 Saturation ABG Base Excess ABG Hemoglobin ABG Oxyhemoglobin ABG Sodium ABG Potassium ABG Chloride ABG Glucose Oxyhemoglobin Carboxyhemoglobin Sodium Potassium Chloride Carbon Dioxide BUN Creatinine Glucose POC Glucose 233 H 255 H Lactic Acid Calcium Magnesium Ferritin Total Bilirubin Direct Bilirubin AST ALT Alkaline Phosphatase Lactate Dehydrogenase C-Reactive Protein Total Protein Albumin Triglycerides Lipase Arterial Blood Glucose Arterial Blood Ionized Calcium Urine WBC (Auto) Coronavirus (PCR) SARS-CoV-2 IgG Ab Crossmatch 07/02/20 07/02/20 07/02/20 03:51 05:35 11:39 WBC RBC Hgb Hct MCV MCH MCHC RDW Lymph % (Auto) [place] % (Auto) Lymph # (Auto) [place] # (Auto) Baso # (Auto) Seg Neutrophils % Seg Neuts % (Manual) Lymphocytes % (Manual) Nucleated RBC % Seg Neutrophils # Seg Neutrophils # Man Lymphocytes # (Manual) Monocytes # (Manual) Eosinophils # (Manual) PT INR APTT D-Dimer Heparin Anti-Xa Level ABG pH POC ABG pCO2 54.9 H POC ABG pO2 52.1 L ABG pO2 ABG HCO3 ABG O2 Saturation ABG Base Excess ABG Hemoglobin 11.9 L ABG Oxyhemoglobin 82.8 L ABG Sodium 130.2 L ABG Potassium ABG Chloride 92.0 L ABG Glucose 249 H Oxyhemoglobin Carboxyhemoglobin 1.9 H Sodium Potassium Chloride Carbon Dioxide BUN Creatinine Glucose POC Glucose 205 H 235 H Lactic Acid Calcium Magnesium Ferritin Total Bilirubin Direct Bilirubin AST ALT Alkaline Phosphatase Lactate Dehydrogenase C-Reactive Protein Total Protein Albumin Triglycerides Lipase Arterial Blood Glucose 249 H Arterial Blood Ionized Calcium Urine WBC (Auto) Coronavirus (PCR) SARS-CoV-2 IgG Ab Crossmatch 07/02/20 07/02/20 07/02/20 16:08 16:08 17:54 WBC 19.8 H RBC 3.28 L Hgb 10.7 L D Hct 32.7 L D MCV 100 H MCH 33 H MCHC RDW 17.2 H Lymph % (Auto) [place] % (Auto) Lymph # (Auto) [place] # (Auto) Baso # (Auto) Seg Neutrophils % Seg Neuts % (Manual) Lymphocytes % (Manual) Nucleated RBC % Seg Neutrophils # Seg Neutrophils # Man Lymphocytes # (Manual) Monocytes # (Manual) Eosinophils # (Manual) PT INR APTT D-Dimer Heparin Anti-Xa Level ABG pH POC ABG pCO2 POC ABG pO2 ABG pO2 ABG HCO3 ABG O2 Saturation ABG Base Excess ABG Hemoglobin ABG Oxyhemoglobin ABG Sodium ABG Potassium ABG Chloride ABG Glucose Oxyhemoglobin Carboxyhemoglobin Sodium 136 L Potassium Chloride 92.4 L Carbon Dioxide 35 H BUN Creatinine 0.3 L Glucose 203 H POC Glucose 175 H Lactic Acid Calcium Magnesium Ferritin Total Bilirubin Direct Bilirubin AST ALT Alkaline Phosphatase Lactate Dehydrogenase C-Reactive Protein Total Protein Albumin Triglycerides Lipase Arterial Blood Glucose Arterial Blood Ionized Calcium Urine WBC (Auto) Coronavirus (PCR) SARS-CoV-2 IgG Ab Crossmatch 07/02/20 07/03/20 07/03/20 23:46 03:25 05:54 WBC RBC Hgb Hct MCV MCH MCHC RDW Lymph % (Auto) [place] % (Auto) Lymph # (Auto) [place] # (Auto) Baso # (Auto) Seg Neutrophils % Seg Neuts % (Manual) Lymphocytes % (Manual) Nucleated RBC % Seg Neutrophils # Seg Neutrophils # Man Lymphocytes # (Manual) Monocytes # (Manual) Eosinophils # (Manual) PT INR APTT D-Dimer Heparin Anti-Xa Level ABG pH 7.468 H POC ABG pCO2 51.5 H POC ABG pO2 ABG pO2 ABG HCO3 ABG O2 Saturation ABG Base Excess ABG Hemoglobin ABG Oxyhemoglobin ABG Sodium 130.2 L ABG Potassium ABG Chloride 91.0 L ABG Glucose 210 H Oxyhemoglobin Carboxyhemoglobin 1.6 H Sodium Potassium Chloride Carbon Dioxide BUN Creatinine Glucose POC Glucose 173 H 125 H Lactic Acid Calcium Magnesium Ferritin Total Bilirubin Direct Bilirubin AST ALT Alkaline Phosphatase Lactate Dehydrogenase C-Reactive Protein Total Protein Albumin Triglycerides Lipase Arterial Blood Glucose 210 H Arterial Blood Ionized Calcium Urine WBC (Auto) Coronavirus (PCR) SARS-CoV-2 IgG Ab Crossmatch 07/03/20 07/03/20 07/03/20 11:43 12:20 12:20 WBC 16.5 H RBC 3.13 L Hgb 10.4 L Hct 31.8 L MCV 102 H MCH 33 H MCHC RDW 17.2 H Lymph % (Auto) [place] % (Auto) Lymph # (Auto) [place] # (Auto) Baso # (Auto) Seg Neutrophils % Seg Neuts % (Manual) Lymphocytes % (Manual) Nucleated RBC % Seg Neutrophils # Seg Neutrophils # Man Lymphocytes # (Manual) Monocytes # (Manual) Eosinophils # (Manual) PT INR APTT D-Dimer Heparin Anti-Xa Level ABG pH POC ABG pCO2 POC ABG pO2 ABG pO2 ABG HCO3 ABG O2 Saturation ABG Base Excess ABG Hemoglobin ABG Oxyhemoglobin ABG Sodium ABG Potassium ABG Chloride ABG Glucose Oxyhemoglobin Carboxyhemoglobin Sodium 132 L Potassium Chloride 88.5 L Carbon Dioxide 37 H BUN Creatinine 0.3 L Glucose 230 H POC Glucose 223 H Lactic Acid Calcium Magnesium Ferritin Total Bilirubin Direct Bilirubin AST ALT Alkaline Phosphatase Lactate Dehydrogenase C-Reactive Protein Total Protein Albumin Triglycerides Lipase Arterial Blood Glucose Arterial Blood Ionized Calcium Urine WBC (Auto) Coronavirus (PCR) SARS-CoV-2 IgG Ab Crossmatch 07/03/20 07/03/20 07/04/20 17:24 21:41 00:54 WBC RBC Hgb Hct MCV MCH MCHC RDW Lymph % (Auto) [place] % (Auto) Lymph # (Auto) [place] # (Auto) Baso # (Auto) Seg Neutrophils % Seg Neuts % (Manual) Lymphocytes % (Manual) Nucleated RBC % Seg Neutrophils # Seg Neutrophils # Man Lymphocytes # (Manual) Monocytes # (Manual) Eosinophils # (Manual) PT INR APTT D-Dimer Heparin Anti-Xa Level ABG pH POC ABG pCO2 POC ABG pO2 ABG pO2 ABG HCO3 ABG O2 Saturation ABG Base Excess ABG Hemoglobin ABG Oxyhemoglobin ABG Sodium ABG Potassium ABG Chloride ABG Glucose Oxyhemoglobin Carboxyhemoglobin Sodium Potassium Chloride Carbon Dioxide BUN Creatinine Glucose POC Glucose 163 H 220 H 195 H Lactic Acid Calcium Magnesium Ferritin Total Bilirubin Direct Bilirubin AST ALT Alkaline Phosphatase Lactate Dehydrogenase C-Reactive Protein Total Protein Albumin Triglycerides Lipase Arterial Blood Glucose Arterial Blood Ionized Calcium Urine WBC (Auto) Coronavirus (PCR) SARS-CoV-2 IgG Ab Crossmatch 07/04/20 07/04/20 07/04/20 03:25 04:00 04:00 WBC 14.9 H RBC 2.91 L Hgb 9.5 L Hct 29.2 L MCV 100 H MCH 33 H MCHC RDW 16.7 H Lymph % (Auto) 8.4 L [place] % (Auto) Lymph # (Auto) [place] # (Auto) 1.1 H Baso # (Auto) Seg Neutrophils % 84.2 H Seg Neuts % (Manual) Lymphocytes % (Manual) Nucleated RBC % Seg Neutrophils # 12.6 H Seg Neutrophils # Man Lymphocytes # (Manual) Monocytes # (Manual) Eosinophils # (Manual) PT INR APTT D-Dimer Heparin Anti-Xa Level ABG pH 7.474 H POC ABG pCO2 POC ABG pO2 51.8 L ABG pO2 ABG HCO3 ABG O2 Saturation ABG Base Excess ABG Hemoglobin ABG Oxyhemoglobin ABG Sodium ABG Potassium ABG Chloride ABG Glucose Oxyhemoglobin Carboxyhemoglobin Sodium Potassium 3.4 L Chloride 92.1 L Carbon Dioxide 34 H BUN Creatinine 0.3 L Glucose 173 H POC Glucose Lactic Acid Calcium Magnesium Ferritin Total Bilirubin Direct Bilirubin AST ALT Alkaline Phosphatase Lactate Dehydrogenase C-Reactive Protein Total Protein Albumin Triglycerides Lipase Arterial Blood Glucose Arterial Blood Ionized Calcium Urine WBC (Auto) Coronavirus (PCR) SARS-CoV-2 IgG Ab Crossmatch 07/04/20 07/04/20 07/04/20 06:18 11:39 17:18 WBC RBC Hgb Hct MCV MCH MCHC RDW Lymph % (Auto) [place] % (Auto) Lymph # (Auto) [place] # (Auto) Baso # (Auto) Seg Neutrophils % Seg Neuts % (Manual) Lymphocytes % (Manual) Nucleated RBC % Seg Neutrophils # Seg Neutrophils # Man Lymphocytes # (Manual) Monocytes # (Manual) Eosinophils # (Manual) PT INR APTT D-Dimer Heparin Anti-Xa Level ABG pH POC ABG pCO2 POC ABG pO2 ABG pO2 ABG HCO3 ABG O2 Saturation ABG Base Excess ABG Hemoglobin ABG Oxyhemoglobin ABG Sodium ABG Potassium ABG Chloride ABG Glucose Oxyhemoglobin Carboxyhemoglobin Sodium Potassium Chloride Carbon Dioxide BUN Creatinine Glucose POC Glucose 158 H 257 H 148 H Lactic Acid Calcium Magnesium Ferritin Total Bilirubin Direct Bilirubin AST ALT Alkaline Phosphatase Lactate Dehydrogenase C-Reactive Protein Total Protein Albumin Triglycerides Lipase Arterial Blood Glucose Arterial Blood Ionized Calcium Urine WBC (Auto) Coronavirus (PCR) SARS-CoV-2 IgG Ab Crossmatch 07/04/20 07/05/20 07/05/20 23:23 03:13 05:18 WBC 13.3 H RBC 2.90 L Hgb 9.8 L Hct 29.3 L MCV 101 H MCH 34 H MCHC RDW 17.0 H Lymph % (Auto) 11.1 L [place] % (Auto) Lymph # (Auto) [place] # (Auto) Baso # (Auto) Seg Neutrophils % 82.3 H Seg Neuts % (Manual) Lymphocytes % (Manual) Nucleated RBC % Seg Neutrophils # 10.9 H Seg Neutrophils # Man Lymphocytes # (Manual) Monocytes # (Manual) Eosinophils # (Manual) PT INR APTT D-Dimer Heparin Anti-Xa Level ABG pH 7.48 H POC ABG pCO2 52.0 H POC ABG pO2 ABG pO2 ABG HCO3 ABG O2 Saturation ABG Base Excess ABG Hemoglobin 10.0 L ABG Oxyhemoglobin ABG Sodium 131.0 L ABG Potassium 3.3 L ABG Chloride 93.0 L ABG Glucose 177 H Oxyhemoglobin Carboxyhemoglobin Sodium Potassium Chloride Carbon Dioxide BUN Creatinine Glucose POC Glucose 227 H Lactic Acid Calcium Magnesium Ferritin Total Bilirubin Direct Bilirubin AST ALT Alkaline Phosphatase Lactate Dehydrogenase C-Reactive Protein Total Protein Albumin Triglycerides Lipase Arterial Blood Glucose 177 H Arterial Blood Ionized Calcium Urine WBC (Auto) Coronavirus (PCR) SARS-CoV-2 IgG Ab Crossmatch 07/05/20 07/05/20 07/05/20 05:18 05:25 05:57 WBC RBC Hgb Hct MCV MCH MCHC RDW Lymph % (Auto) [place] % (Auto) Lymph # (Auto) [place] # (Auto) Baso # (Auto) Seg Neutrophils % Seg Neuts % (Manual) Lymphocytes % (Manual) Nucleated RBC % Seg Neutrophils # Seg Neutrophils # Man Lymphocytes # (Manual) Monocytes # (Manual) Eosinophils # (Manual) PT INR APTT D-Dimer Heparin Anti-Xa Level ABG pH 7.519 H POC ABG pCO2 POC ABG pO2 198.6 H ABG pO2 ABG HCO3 ABG O2 Saturation ABG Base Excess ABG Hemoglobin 10.3 L ABG Oxyhemoglobin 98.7 H ABG Sodium 133.6 L ABG Potassium 3.3 L ABG Chloride 93.0 L ABG Glucose 175 H Oxyhemoglobin Carboxyhemoglobin Sodium Potassium 3.4 L Chloride 92.5 L Carbon Dioxide 36 H BUN Creatinine 0.3 L Glucose 148 H POC Glucose 170 H Lactic Acid Calcium Magnesium Ferritin Total Bilirubin Direct Bilirubin AST ALT Alkaline Phosphatase Lactate Dehydrogenase C-Reactive Protein Total Protein Albumin Triglycerides Lipase Arterial Blood Glucose 175 H Arterial Blood Ionized Calcium Urine WBC (Auto) Coronavirus (PCR) SARS-CoV-2 IgG Ab Crossmatch 07/05/20 07/05/20 07/06/20 11:37 18:39 00:04 WBC RBC Hgb Hct MCV MCH MCHC RDW Lymph % (Auto) [place] % (Auto) Lymph # (Auto) [place] # (Auto) Baso # (Auto) Seg Neutrophils % Seg Neuts % (Manual) Lymphocytes % (Manual) Nucleated RBC % Seg Neutrophils # Seg Neutrophils # Man Lymphocytes # (Manual) Monocytes # (Manual) Eosinophils # (Manual) PT INR APTT D-Dimer Heparin Anti-Xa Level ABG pH POC ABG pCO2 POC ABG pO2 ABG pO2 ABG HCO3 ABG O2 Saturation ABG Base Excess ABG Hemoglobin ABG Oxyhemoglobin ABG Sodium ABG Potassium ABG Chloride ABG Glucose Oxyhemoglobin Carboxyhemoglobin Sodium Potassium Chloride Carbon Dioxide BUN Creatinine Glucose POC Glucose 195 H 200 H 222 H Lactic Acid Calcium Magnesium Ferritin Total Bilirubin Direct Bilirubin AST ALT Alkaline Phosphatase Lactate Dehydrogenase C-Reactive Protein Total Protein Albumin Triglycerides Lipase Arterial Blood Glucose Arterial Blood Ionized Calcium Urine WBC (Auto) Coronavirus (PCR) SARS-CoV-2 IgG Ab Crossmatch 07/06/20 07/06/20 07/06/20 05:25 06:52 06:52 WBC 15.8 H RBC 3.17 L Hgb 10.4 L Hct 31.5 L MCV 99 H MCH 33 H MCHC RDW 17.0 H Lymph % (Auto) [place] % (Auto) Lymph # (Auto) [place] # (Auto) Baso # (Auto) Seg Neutrophils % Seg Neuts % (Manual) Lymphocytes % (Manual) Nucleated RBC % Seg Neutrophils # Seg Neutrophils # Man Lymphocytes # (Manual) Monocytes # (Manual) Eosinophils # (Manual) PT INR APTT D-Dimer Heparin Anti-Xa Level ABG pH POC ABG pCO2 POC ABG pO2 ABG pO2 ABG HCO3 ABG O2 Saturation ABG Base Excess ABG Hemoglobin ABG Oxyhemoglobin ABG Sodium ABG Potassium ABG Chloride ABG Glucose Oxyhemoglobin Carboxyhemoglobin Sodium 135 L Potassium 3.4 L Chloride 91.9 L Carbon Dioxide 38 H BUN Creatinine 0.3 L Glucose 189 H POC Glucose 165 H Lactic Acid Calcium Magnesium Ferritin Total Bilirubin Direct Bilirubin AST ALT Alkaline Phosphatase Lactate Dehydrogenase C-Reactive Protein Total Protein Albumin Triglycerides Lipase Arterial Blood Glucose Arterial Blood Ionized Calcium Urine WBC (Auto) Coronavirus (PCR) SARS-CoV-2 IgG Ab Crossmatch 07/06/20 07/06/20 07/06/20 13:01 18:04 23:08 WBC RBC Hgb Hct MCV MCH MCHC RDW Lymph % (Auto) [place] % (Auto) Lymph # (Auto) [place] # (Auto) Baso # (Auto) Seg Neutrophils % Seg Neuts % (Manual) Lymphocytes % (Manual) Nucleated RBC % Seg Neutrophils # Seg Neutrophils # Man Lymphocytes # (Manual) Monocytes # (Manual) Eosinophils # (Manual) PT INR APTT D-Dimer Heparin Anti-Xa Level ABG pH POC ABG pCO2 POC ABG pO2 ABG pO2 ABG HCO3 ABG O2 Saturation ABG Base Excess ABG Hemoglobin ABG Oxyhemoglobin ABG Sodium ABG Potassium ABG Chloride ABG Glucose Oxyhemoglobin Carboxyhemoglobin Sodium Potassium Chloride Carbon Dioxide BUN Creatinine Glucose POC Glucose 195 H 169 H 173 H Lactic Acid Calcium Magnesium Ferritin Total Bilirubin Direct Bilirubin AST ALT Alkaline Phosphatase Lactate Dehydrogenase C-Reactive Protein Total Protein Albumin Triglycerides Lipase Arterial Blood Glucose Arterial Blood Ionized Calcium Urine WBC (Auto) Coronavirus (PCR) SARS-CoV-2 IgG Ab Crossmatch 07/07/20 07/07/20 07/07/20 05:35 05:35 05:39 WBC 17.6 H RBC 3.16 L Hgb 10.4 L Hct 31.5 L MCV 100 H MCH 33 H MCHC RDW 16.7 H Lymph % (Auto) 11.1 L [place] % (Auto) Lymph # (Auto) [place] # (Auto) 1.0 H Baso # (Auto) Seg Neutrophils % 83.0 H Seg Neuts % (Manual) Lymphocytes % (Manual) Nucleated RBC % Seg Neutrophils # 14.6 H Seg Neutrophils # Man Lymphocytes # (Manual) Monocytes # (Manual) Eosinophils # (Manual) PT INR APTT D-Dimer Heparin Anti-Xa Level ABG pH POC ABG pCO2 POC ABG pO2 ABG pO2 ABG HCO3 ABG O2 Saturation ABG Base Excess ABG Hemoglobin ABG Oxyhemoglobin ABG Sodium ABG Potassium ABG Chloride ABG Glucose Oxyhemoglobin Carboxyhemoglobin Sodium 135 L Potassium 3.4 L Chloride 94.3 L Carbon Dioxide 32 H BUN Creatinine 0.2 L Glucose 240 H POC Glucose 191 H Lactic Acid Calcium Magnesium Ferritin Total Bilirubin Direct Bilirubin AST ALT Alkaline Phosphatase Lactate Dehydrogenase C-Reactive Protein Total Protein Albumin Triglycerides Lipase Arterial Blood Glucose Arterial Blood Ionized Calcium Urine WBC (Auto) Coronavirus (PCR) SARS-CoV-2 IgG Ab Crossmatch 07/07/20 07/07/20 07/07/20 12:08 16:39 23:41 WBC RBC Hgb Hct MCV MCH MCHC RDW Lymph % (Auto) [place] % (Auto) Lymph # (Auto) [place] # (Auto) Baso # (Auto) Seg Neutrophils % Seg Neuts % (Manual) Lymphocytes % (Manual) Nucleated RBC % Seg Neutrophils # Seg Neutrophils # Man Lymphocytes # (Manual) Monocytes # (Manual) Eosinophils # (Manual) PT INR APTT D-Dimer Heparin Anti-Xa Level ABG pH POC ABG pCO2 POC ABG pO2 ABG pO2 ABG HCO3 ABG O2 Saturation ABG Base Excess ABG Hemoglobin ABG Oxyhemoglobin ABG Sodium ABG Potassium ABG Chloride ABG Glucose Oxyhemoglobin Carboxyhemoglobin Sodium Potassium Chloride Carbon Dioxide BUN Creatinine Glucose POC Glucose 248 H 209 H 231 H Lactic Acid Calcium Magnesium Ferritin Total Bilirubin Direct Bilirubin AST ALT Alkaline Phosphatase Lactate Dehydrogenase C-Reactive Protein Total Protein Albumin Triglycerides Lipase Arterial Blood Glucose Arterial Blood Ionized Calcium Urine WBC (Auto) Coronavirus (PCR) SARS-CoV-2 IgG Ab Crossmatch 07/08/20 07/08/20 07/08/20 04:58 04:58 05:38 WBC 21.0 H RBC 2.86 L Hgb 9.2 L Hct 28.6 L MCV 100 H MCH MCHC RDW 16.7 H Lymph % (Auto) [place] % (Auto) Lymph # (Auto) [place] # (Auto) Baso # (Auto) Seg Neutrophils % Seg Neuts % (Manual) 93.0 H Lymphocytes % (Manual) 3.0 L Nucleated RBC % Seg Neutrophils # Seg Neutrophils # Man 19.5 H Lymphocytes # (Manual) 0.6 L Monocytes # (Manual) Eosinophils # (Manual) PT INR APTT D-Dimer Heparin Anti-Xa Level ABG pH POC ABG pCO2 POC ABG pO2 ABG pO2 ABG HCO3 ABG O2 Saturation ABG Base Excess ABG Hemoglobin ABG Oxyhemoglobin ABG Sodium ABG Potassium ABG Chloride ABG Glucose Oxyhemoglobin Carboxyhemoglobin Sodium Potassium 3.0 L Chloride Carbon Dioxide BUN Creatinine 0.2 L Glucose 201 H POC Glucose 161 H Lactic Acid Calcium 7.9 L D Magnesium Ferritin Total Bilirubin Direct Bilirubin AST ALT Alkaline Phosphatase Lactate Dehydrogenase C-Reactive Protein Total Protein Albumin Triglycerides Lipase Arterial Blood Glucose Arterial Blood Ionized Calcium Urine WBC (Auto) Coronavirus (PCR) SARS-CoV-2 IgG Ab Crossmatch 07/08/20 07/08/20 07/08/20 12:19 16:26 Unknown WBC RBC Hgb Hct MCV MCH MCHC RDW Lymph % (Auto) [place] % (Auto) Lymph # (Auto) [place] # (Auto) Baso # (Auto) Seg Neutrophils % Seg Neuts % (Manual) Lymphocytes % (Manual) Nucleated RBC % Seg Neutrophils # Seg Neutrophils # Man Lymphocytes # (Manual) Monocytes # (Manual) Eosinophils # (Manual) PT INR APTT D-Dimer Heparin Anti-Xa Level ABG pH POC ABG pCO2 POC ABG pO2 ABG pO2 75.3 L ABG HCO3 34.3 H ABG O2 Saturation ABG Base Excess 8.7 H ABG Hemoglobin 10.2 L ABG Oxyhemoglobin ABG Sodium ABG Potassium ABG Chloride ABG Glucose Oxyhemoglobin 93.7 L Carboxyhemoglobin Sodium Potassium Chloride Carbon Dioxide BUN Creatinine Glucose POC Glucose 152 H 173 H Lactic Acid Calcium Magnesium Ferritin Total Bilirubin Direct Bilirubin AST ALT Alkaline Phosphatase Lactate Dehydrogenase C-Reactive Protein Total Protein Albumin Triglycerides Lipase Arterial Blood Glucose Arterial Blood Ionized Calcium Urine WBC (Auto) Coronavirus (PCR) SARS-CoV-2 IgG Ab Crossmatch 07/09/20 07/09/20 07/09/20 00:01 06:00 11:55 WBC RBC Hgb Hct MCV MCH MCHC RDW Lymph % (Auto) [place] % (Auto) Lymph # (Auto) [place] # (Auto) Baso # (Auto) Seg Neutrophils % Seg Neuts % (Manual) Lymphocytes % (Manual) Nucleated RBC % Seg Neutrophils # Seg Neutrophils # Man Lymphocytes # (Manual) Monocytes # (Manual) Eosinophils # (Manual) PT INR APTT D-Dimer Heparin Anti-Xa Level ABG pH POC ABG pCO2 POC ABG pO2 ABG pO2 ABG HCO3 ABG O2 Saturation ABG Base Excess ABG Hemoglobin ABG Oxyhemoglobin ABG Sodium ABG Potassium ABG Chloride ABG Glucose Oxyhemoglobin Carboxyhemoglobin Sodium Potassium Chloride Carbon Dioxide BUN Creatinine Glucose POC Glucose 207 H 141 H 228 H Lactic Acid Calcium Magnesium Ferritin Total Bilirubin Direct Bilirubin AST ALT Alkaline Phosphatase Lactate Dehydrogenase C-Reactive Protein Total Protein Albumin Triglycerides Lipase Arterial Blood Glucose Arterial Blood Ionized Calcium Urine WBC (Auto) Coronavirus (PCR) SARS-CoV-2 IgG Ab Crossmatch 07/09/20 07/09/20 07/09/20 16:47 23:53 Unknown WBC RBC Hgb Hct MCV MCH MCHC RDW Lymph % (Auto) [place] % (Auto) Lymph # (Auto) [place] # (Auto) Baso # (Auto) Seg Neutrophils % Seg Neuts % (Manual) Lymphocytes % (Manual) Nucleated RBC % Seg Neutrophils # Seg Neutrophils # Man Lymphocytes # (Manual) Monocytes # (Manual) Eosinophils # (Manual) PT INR APTT D-Dimer Heparin Anti-Xa Level ABG pH POC ABG pCO2 POC ABG pO2 ABG pO2 ABG HCO3 ABG O2 Saturation ABG Base Excess ABG Hemoglobin ABG Oxyhemoglobin ABG Sodium ABG Potassium ABG Chloride ABG Glucose Oxyhemoglobin Carboxyhemoglobin Sodium 132 L Potassium Chloride 92.7 L Carbon Dioxide 35 H BUN Creatinine 0.2 L Glucose 234 H POC Glucose 136 H 219 H Lactic Acid Calcium Magnesium Ferritin Total Bilirubin Direct Bilirubin AST ALT Alkaline Phosphatase Lactate Dehydrogenase C-Reactive Protein Total Protein Albumin Triglycerides Lipase Arterial Blood Glucose Arterial Blood Ionized Calcium Urine WBC (Auto) Coronavirus (PCR) SARS-CoV-2 IgG Ab Crossmatch 07/10/20 07/10/20 07/10/20 05:20 12:05 18:38 WBC RBC Hgb Hct MCV MCH MCHC RDW Lymph % (Auto) [place] % (Auto) Lymph # (Auto) [place] # (Auto) Baso # (Auto) Seg Neutrophils % Seg Neuts % (Manual) Lymphocytes % (Manual) Nucleated RBC % Seg Neutrophils # Seg Neutrophils # Man Lymphocytes # (Manual) Monocytes # (Manual) Eosinophils # (Manual) PT INR APTT D-Dimer Heparin Anti-Xa Level ABG pH POC ABG pCO2 POC ABG pO2 ABG pO2 ABG HCO3 ABG O2 Saturation ABG Base Excess ABG Hemoglobin ABG Oxyhemoglobin ABG Sodium ABG Potassium ABG Chloride ABG Glucose Oxyhemoglobin Carboxyhemoglobin Sodium Potassium Chloride Carbon Dioxide BUN Creatinine Glucose POC Glucose 221 H 174 H 152 H Lactic Acid Calcium Magnesium Ferritin Total Bilirubin Direct Bilirubin AST ALT Alkaline Phosphatase Lactate Dehydrogenase C-Reactive Protein Total Protein Albumin Triglycerides Lipase Arterial Blood Glucose Arterial Blood Ionized Calcium Urine WBC (Auto) Coronavirus (PCR) SARS-CoV-2 IgG Ab Crossmatch 07/11/20 07/11/20 07/11/20 00:16 05:42 08:13 WBC 11.9 H RBC 3.13 L Hgb 10.2 L Hct 31.2 L MCV 100 H MCH 33 H MCHC RDW 16.4 H Lymph % (Auto) [place] % (Auto) 9.3 H Lymph # (Auto) [place] # (Auto) 1.1 H Baso # (Auto) Seg Neutrophils % 72.7 H Seg Neuts % (Manual) Lymphocytes % (Manual) Nucleated RBC % Seg Neutrophils # 8.7 H Seg Neutrophils # Man Lymphocytes # (Manual) Monocytes # (Manual) Eosinophils # (Manual) PT INR APTT D-Dimer Heparin Anti-Xa Level ABG pH POC ABG pCO2 POC ABG pO2 ABG pO2 ABG HCO3 ABG O2 Saturation ABG Base Excess ABG Hemoglobin ABG Oxyhemoglobin ABG Sodium ABG Potassium ABG Chloride ABG Glucose Oxyhemoglobin Carboxyhemoglobin Sodium Potassium Chloride Carbon Dioxide BUN Creatinine Glucose POC Glucose 170 H 186 H Lactic Acid Calcium Magnesium Ferritin Total Bilirubin Direct Bilirubin AST ALT Alkaline Phosphatase Lactate Dehydrogenase C-Reactive Protein Total Protein Albumin Triglycerides Lipase Arterial Blood Glucose Arterial Blood Ionized Calcium Urine WBC (Auto) Coronavirus (PCR) SARS-CoV-2 IgG Ab Crossmatch 07/11/20 07/11/20 07/11/20 08:13 11:35 18:07 WBC RBC Hgb Hct MCV MCH MCHC RDW Lymph % (Auto) [place] % (Auto) Lymph # (Auto) [place] # (Auto) Baso # (Auto) Seg Neutrophils % Seg Neuts % (Manual) Lymphocytes % (Manual) Nucleated RBC % Seg Neutrophils # Seg Neutrophils # Man Lymphocytes # (Manual) Monocytes # (Manual) Eosinophils # (Manual) PT INR APTT D-Dimer Heparin Anti-Xa Level ABG pH POC ABG pCO2 POC ABG pO2 ABG pO2 ABG HCO3 ABG O2 Saturation ABG Base Excess ABG Hemoglobin ABG Oxyhemoglobin ABG Sodium ABG Potassium ABG Chloride ABG Glucose Oxyhemoglobin Carboxyhemoglobin Sodium 135 L Potassium Chloride 92.8 L Carbon Dioxide 38 H BUN Creatinine 0.2 L Glucose 132 H POC Glucose 129 H 156 H Lactic Acid Calcium Magnesium Ferritin Total Bilirubin Direct Bilirubin AST ALT Alkaline Phosphatase Lactate Dehydrogenase C-Reactive Protein Total Protein Albumin Triglycerides Lipase Arterial Blood Glucose Arterial Blood Ionized Calcium Urine WBC (Auto) Coronavirus (PCR) SARS-CoV-2 IgG Ab Crossmatch 07/11/20 07/11/20 07/12/20 18:36 23:18 05:28 WBC RBC Hgb Hct MCV MCH MCHC RDW Lymph % (Auto) [place] % (Auto) Lymph # (Auto) [place] # (Auto) Baso # (Auto) Seg Neutrophils % Seg Neuts % (Manual) Lymphocytes % (Manual) Nucleated RBC % Seg Neutrophils # Seg Neutrophils # Man Lymphocytes # (Manual) Monocytes # (Manual) Eosinophils # (Manual) PT INR APTT D-Dimer Heparin Anti-Xa Level ABG pH POC ABG pCO2 POC ABG pO2 70.9 L ABG pO2 ABG HCO3 ABG O2 Saturation ABG Base Excess ABG Hemoglobin 10.8 L ABG Oxyhemoglobin 92.5 L ABG Sodium 131.8 L ABG Potassium 3.2 L ABG Chloride 91.0 L ABG Glucose 181 H Oxyhemoglobin Carboxyhemoglobin Sodium Potassium Chloride Carbon Dioxide BUN Creatinine Glucose POC Glucose 189 H 190 H Lactic Acid Calcium Magnesium Ferritin Total Bilirubin Direct Bilirubin AST ALT Alkaline Phosphatase Lactate Dehydrogenase C-Reactive Protein Total Protein Albumin Triglycerides Lipase Arterial Blood Glucose 181 H Arterial Blood Ionized Calcium Urine WBC (Auto) Coronavirus (PCR) SARS-CoV-2 IgG Ab Crossmatch 07/12/20 07/12/20 07/12/20 11:33 17:45 23:59 WBC RBC Hgb Hct MCV MCH MCHC RDW Lymph % (Auto) [place] % (Auto) Lymph # (Auto) [place] # (Auto) Baso # (Auto) Seg Neutrophils % Seg Neuts % (Manual) Lymphocytes % (Manual) Nucleated RBC % Seg Neutrophils # Seg Neutrophils # Man Lymphocytes # (Manual) Monocytes # (Manual) Eosinophils # (Manual) PT INR APTT D-Dimer Heparin Anti-Xa Level ABG pH POC ABG pCO2 POC ABG pO2 ABG pO2 ABG HCO3 ABG O2 Saturation ABG Base Excess ABG Hemoglobin ABG Oxyhemoglobin ABG Sodium ABG Potassium ABG Chloride ABG Glucose Oxyhemoglobin Carboxyhemoglobin Sodium Potassium Chloride Carbon Dioxide BUN Creatinine Glucose POC Glucose 151 H 211 H 169 H Lactic Acid Calcium Magnesium Ferritin Total Bilirubin Direct Bilirubin AST ALT Alkaline Phosphatase Lactate Dehydrogenase C-Reactive Protein Total Protein Albumin Triglycerides Lipase Arterial Blood Glucose Arterial Blood Ionized Calcium Urine WBC (Auto) Coronavirus (PCR) SARS-CoV-2 IgG Ab Crossmatch 07/13/20 07/13/20 07/13/20 05:44 08:31 08:31 WBC 21.3 H RBC 2.92 L Hgb 9.7 L Hct 28.7 L MCV 98 H MCH 33 H MCHC RDW 16.8 H Lymph % (Auto) [place] % (Auto) Lymph # (Auto) [place] # (Auto) Baso # (Auto) Seg Neutrophils % Seg Neuts % (Manual) 96.0 H Lymphocytes % (Manual) 2.0 L Nucleated RBC % Seg Neutrophils # Seg Neutrophils # Man 20.4 H Lymphocytes # (Manual) 0.4 L Monocytes # (Manual) Eosinophils # (Manual) PT INR APTT D-Dimer Heparin Anti-Xa Level ABG pH POC ABG pCO2 POC ABG pO2 ABG pO2 ABG HCO3 ABG O2 Saturation ABG Base Excess ABG Hemoglobin ABG Oxyhemoglobin ABG Sodium ABG Potassium ABG Chloride ABG Glucose Oxyhemoglobin Carboxyhemoglobin Sodium Potassium 2.9 L* D Chloride 94.4 L Carbon Dioxide 37 H BUN Creatinine 0.2 L Glucose 166 H POC Glucose 122 H Lactic Acid Calcium Magnesium Ferritin Total Bilirubin Direct Bilirubin AST ALT Alkaline Phosphatase Lactate Dehydrogenase C-Reactive Protein Total Protein Albumin Triglycerides Lipase Arterial Blood Glucose Arterial Blood Ionized Calcium Urine WBC (Auto) Coronavirus (PCR) SARS-CoV-2 IgG Ab Crossmatch 07/13/20 07/13/20 07/13/20 11:54 13:52 17:40 WBC RBC Hgb Hct MCV MCH MCHC RDW Lymph % (Auto) [place] % (Auto) Lymph # (Auto) [place] # (Auto) Baso # (Auto) Seg Neutrophils % Seg Neuts % (Manual) Lymphocytes % (Manual) Nucleated RBC % Seg Neutrophils # Seg Neutrophils # Man Lymphocytes # (Manual) Monocytes # (Manual) Eosinophils # (Manual) PT INR APTT D-Dimer Heparin Anti-Xa Level ABG pH 7.477 H POC ABG pCO2 54.4 H POC ABG pO2 126.8 H ABG pO2 ABG HCO3 ABG O2 Saturation ABG Base Excess ABG Hemoglobin 11.5 L ABG Oxyhemoglobin ABG Sodium ABG Potassium 3.2 L ABG Chloride 92.0 L ABG Glucose 169 H Oxyhemoglobin Carboxyhemoglobin Sodium Potassium Chloride Carbon Dioxide BUN Creatinine Glucose POC Glucose 132 H 128 H Lactic Acid Calcium Magnesium Ferritin Total Bilirubin Direct Bilirubin AST ALT Alkaline Phosphatase Lactate Dehydrogenase C-Reactive Protein Total Protein Albumin Triglycerides Lipase Arterial Blood Glucose 169 H Arterial Blood Ionized Calcium Urine WBC (Auto) Coronavirus (PCR) SARS-CoV-2 IgG Ab Crossmatch 07/14/20 07/14/20 07/15/20 07:49 17:09 05:27 WBC RBC Hgb Hct MCV MCH MCHC RDW Lymph % (Auto) [place] % (Auto) Lymph # (Auto) [place] # (Auto) Baso # (Auto) Seg Neutrophils % Seg Neuts % (Manual) Lymphocytes % (Manual) Nucleated RBC % Seg Neutrophils # Seg Neutrophils # Man Lymphocytes # (Manual) Monocytes # (Manual) Eosinophils # (Manual) PT INR APTT D-Dimer Heparin Anti-Xa Level ABG pH POC ABG pCO2 POC ABG pO2 ABG pO2 ABG HCO3 ABG O2 Saturation ABG Base Excess ABG Hemoglobin ABG Oxyhemoglobin ABG Sodium ABG Potassium ABG Chloride ABG Glucose Oxyhemoglobin Carboxyhemoglobin Sodium Potassium 2.7 L* Chloride 94.0 L Carbon Dioxide 37 H BUN Creatinine 0.3 L Glucose 110 H POC Glucose 152 H 61 L Lactic Acid Calcium Magnesium Ferritin Total Bilirubin Direct Bilirubin AST ALT Alkaline Phosphatase Lactate Dehydrogenase C-Reactive Protein Total Protein Albumin Triglycerides Lipase Arterial Blood Glucose Arterial Blood Ionized Calcium Urine WBC (Auto) Coronavirus (PCR) SARS-CoV-2 IgG Ab Crossmatch 07/15/20 07/15/20 07/15/20 05:31 11:49 17:18 WBC RBC Hgb Hct MCV MCH MCHC RDW Lymph % (Auto) [place] % (Auto) Lymph # (Auto) [place] # (Auto) Baso # (Auto) Seg Neutrophils % Seg Neuts % (Manual) Lymphocytes % (Manual) Nucleated RBC % Seg Neutrophils # Seg Neutrophils # Man Lymphocytes # (Manual) Monocytes # (Manual) Eosinophils # (Manual) PT INR APTT D-Dimer Heparin Anti-Xa Level ABG pH POC ABG pCO2 POC ABG pO2 ABG pO2 ABG HCO3 ABG O2 Saturation ABG Base Excess ABG Hemoglobin ABG Oxyhemoglobin ABG Sodium ABG Potassium ABG Chloride ABG Glucose Oxyhemoglobin Carboxyhemoglobin Sodium Potassium 3.2 L Chloride 91.2 L Carbon Dioxide 33 H BUN Creatinine 0.3 L Glucose 139 H POC Glucose 148 H 196 H Lactic Acid Calcium Magnesium Ferritin Total Bilirubin Direct Bilirubin AST ALT Alkaline Phosphatase Lactate Dehydrogenase C-Reactive Protein Total Protein Albumin Triglycerides Lipase Arterial Blood Glucose Arterial Blood Ionized Calcium Urine WBC (Auto) Coronavirus (PCR) SARS-CoV-2 IgG Ab Crossmatch 07/15/20 07/16/20 07/16/20 23:08 05:18 05:19 WBC 11.3 H RBC 3.10 L Hgb 10.0 L Hct 30.3 L MCV 98 H MCH MCHC RDW 16.3 H Lymph % (Auto) [place] % (Auto) Lymph # (Auto) [place] # (Auto) Baso # (Auto) Seg Neutrophils % Seg Neuts % (Manual) Lymphocytes % (Manual) Nucleated RBC % Seg Neutrophils # Seg Neutrophils # Man Lymphocytes # (Manual) Monocytes # (Manual) Eosinophils # (Manual) PT INR APTT D-Dimer Heparin Anti-Xa Level ABG pH POC ABG pCO2 POC ABG pO2 ABG pO2 ABG HCO3 ABG O2 Saturation ABG Base Excess ABG Hemoglobin ABG Oxyhemoglobin ABG Sodium ABG Potassium ABG Chloride ABG Glucose Oxyhemoglobin Carboxyhemoglobin Sodium Potassium Chloride Carbon Dioxide BUN Creatinine Glucose POC Glucose 131 H 160 H Lactic Acid Calcium Magnesium Ferritin Total Bilirubin Direct Bilirubin AST ALT Alkaline Phosphatase Lactate Dehydrogenase C-Reactive Protein Total Protein Albumin Triglycerides Lipase Arterial Blood Glucose Arterial Blood Ionized Calcium Urine WBC (Auto) Coronavirus (PCR) SARS-CoV-2 IgG Ab Crossmatch 07/16/20 07/16/20 07/16/20 05:19 11:45 17:17 WBC RBC Hgb Hct MCV MCH MCHC RDW Lymph % (Auto) [place] % (Auto) Lymph # (Auto) [place] # (Auto) Baso # (Auto) Seg Neutrophils % Seg Neuts % (Manual) Lymphocytes % (Manual) Nucleated RBC % Seg Neutrophils # Seg Neutrophils # Man Lymphocytes # (Manual) Monocytes # (Manual) Eosinophils # (Manual) PT INR APTT D-Dimer Heparin Anti-Xa Level ABG pH POC ABG pCO2 POC ABG pO2 ABG pO2 ABG HCO3 ABG O2 Saturation ABG Base Excess ABG Hemoglobin ABG Oxyhemoglobin ABG Sodium ABG Potassium ABG Chloride ABG Glucose Oxyhemoglobin Carboxyhemoglobin Sodium 132 L Potassium 3.4 L Chloride 89.9 L Carbon Dioxide 39 H BUN Creatinine 0.3 L Glucose 174 H POC Glucose 169 H 143 H Lactic Acid Calcium Magnesium Ferritin Total Bilirubin Direct Bilirubin AST ALT Alkaline Phosphatase Lactate Dehydrogenase C-Reactive Protein Total Protein Albumin Triglycerides Lipase Arterial Blood Glucose Arterial Blood Ionized Calcium Urine WBC (Auto) Coronavirus (PCR) SARS-CoV-2 IgG Ab Crossmatch 07/16/20 07/17/20 07/17/20 23:54 05:32 11:26 WBC RBC Hgb Hct MCV MCH MCHC RDW Lymph % (Auto) [place] % (Auto) Lymph # (Auto) [place] # (Auto) Baso # (Auto) Seg Neutrophils % Seg Neuts % (Manual) Lymphocytes % (Manual) Nucleated RBC % Seg Neutrophils # Seg Neutrophils # Man Lymphocytes # (Manual) Monocytes # (Manual) Eosinophils # (Manual) PT INR APTT D-Dimer Heparin Anti-Xa Level ABG pH POC ABG pCO2 POC ABG pO2 ABG pO2 ABG HCO3 ABG O2 Saturation ABG Base Excess ABG Hemoglobin ABG Oxyhemoglobin ABG Sodium ABG Potassium ABG Chloride ABG Glucose Oxyhemoglobin Carboxyhemoglobin Sodium Potassium Chloride Carbon Dioxide BUN Creatinine Glucose POC Glucose 147 H 149 H 211 H Lactic Acid Calcium Magnesium Ferritin Total Bilirubin Direct Bilirubin AST ALT Alkaline Phosphatase Lactate Dehydrogenase C-Reactive Protein Total Protein Albumin Triglycerides Lipase Arterial Blood Glucose Arterial Blood Ionized Calcium Urine WBC (Auto) Coronavirus (PCR) SARS-CoV-2 IgG Ab Crossmatch 07/17/20 07/17/20 07/18/20 18:16 23:12 06:15 WBC RBC Hgb Hct MCV MCH MCHC RDW Lymph % (Auto) [place] % (Auto) Lymph # (Auto) [place] # (Auto) Baso # (Auto) Seg Neutrophils % Seg Neuts % (Manual) Lymphocytes % (Manual) Nucleated RBC % Seg Neutrophils # Seg Neutrophils # Man Lymphocytes # (Manual) Monocytes # (Manual) Eosinophils # (Manual) PT INR APTT D-Dimer Heparin Anti-Xa Level ABG pH POC ABG pCO2 POC ABG pO2 ABG pO2 ABG HCO3 ABG O2 Saturation ABG Base Excess ABG Hemoglobin ABG Oxyhemoglobin ABG Sodium ABG Potassium ABG Chloride ABG Glucose Oxyhemoglobin Carboxyhemoglobin Sodium Potassium Chloride Carbon Dioxide BUN Creatinine Glucose POC Glucose 161 H 136 H 108 H Lactic Acid Calcium Magnesium Ferritin Total Bilirubin Direct Bilirubin AST ALT Alkaline Phosphatase Lactate Dehydrogenase C-Reactive Protein Total Protein Albumin Triglycerides Lipase Arterial Blood Glucose Arterial Blood Ionized Calcium Urine WBC (Auto) Coronavirus (PCR) SARS-CoV-2 IgG Ab Crossmatch 07/18/20 07/18/20 07/18/20 08:47 08:47 11:50 WBC 17.7 H RBC 3.29 L Hgb 10.5 L Hct 31.8 L MCV 97 H MCH MCHC RDW 16.9 H Lymph % (Auto) [place] % (Auto) 8.6 H Lymph # (Auto) [place] # (Auto) 1.5 H Baso # (Auto) Seg Neutrophils % 74.6 H Seg Neuts % (Manual) Lymphocytes % (Manual) Nucleated RBC % Seg Neutrophils # 13.2 H Seg Neutrophils # Man Lymphocytes # (Manual) Monocytes # (Manual) Eosinophils # (Manual) PT INR APTT D-Dimer Heparin Anti-Xa Level ABG pH POC ABG pCO2 POC ABG pO2 ABG pO2 ABG HCO3 ABG O2 Saturation ABG Base Excess ABG Hemoglobin ABG Oxyhemoglobin ABG Sodium ABG Potassium ABG Chloride ABG Glucose Oxyhemoglobin Carboxyhemoglobin Sodium Potassium 2.8 L* Chloride 92.6 L Carbon Dioxide 40 H BUN Creatinine 0.3 L Glucose 177 H POC Glucose 178 H Lactic Acid Calcium Magnesium Ferritin Total Bilirubin Direct Bilirubin AST ALT Alkaline Phosphatase Lactate Dehydrogenase C-Reactive Protein Total Protein Albumin Triglycerides Lipase Arterial Blood Glucose Arterial Blood Ionized Calcium Urine WBC (Auto) Coronavirus (PCR) SARS-CoV-2 IgG Ab Crossmatch 07/18/20 07/18/20 07/19/20 17:18 23:33 05:22 WBC RBC Hgb Hct MCV MCH MCHC RDW Lymph % (Auto) [place] % (Auto) Lymph # (Auto) [place] # (Auto) Baso # (Auto) Seg Neutrophils % Seg Neuts % (Manual) Lymphocytes % (Manual) Nucleated RBC % Seg Neutrophils # Seg Neutrophils # Man Lymphocytes # (Manual) Monocytes # (Manual) Eosinophils # (Manual) PT INR APTT D-Dimer Heparin Anti-Xa Level ABG pH POC ABG pCO2 POC ABG pO2 ABG pO2 ABG HCO3 ABG O2 Saturation ABG Base Excess ABG Hemoglobin ABG Oxyhemoglobin ABG Sodium ABG Potassium ABG Chloride ABG Glucose Oxyhemoglobin Carboxyhemoglobin Sodium Potassium Chloride Carbon Dioxide BUN Creatinine Glucose POC Glucose 171 H 162 H 166 H Lactic Acid Calcium Magnesium Ferritin Total Bilirubin Direct Bilirubin AST ALT Alkaline Phosphatase Lactate Dehydrogenase C-Reactive Protein Total Protein Albumin Triglycerides Lipase Arterial Blood Glucose Arterial Blood Ionized Calcium Urine WBC (Auto) Coronavirus (PCR) SARS-CoV-2 IgG Ab Crossmatch 07/19/20 07/19/20 07/19/20 12:00 16:27 23:41 WBC RBC Hgb Hct MCV MCH MCHC RDW Lymph % (Auto) [place] % (Auto) Lymph # (Auto) [place] # (Auto) Baso # (Auto) Seg Neutrophils % Seg Neuts % (Manual) Lymphocytes % (Manual) Nucleated RBC % Seg Neutrophils # Seg Neutrophils # Man Lymphocytes # (Manual) Monocytes # (Manual) Eosinophils # (Manual) PT INR APTT D-Dimer Heparin Anti-Xa Level ABG pH POC ABG pCO2 POC ABG pO2 ABG pO2 ABG HCO3 ABG O2 Saturation ABG Base Excess ABG Hemoglobin ABG Oxyhemoglobin ABG Sodium ABG Potassium ABG Chloride ABG Glucose Oxyhemoglobin Carboxyhemoglobin Sodium Potassium Chloride Carbon Dioxide BUN Creatinine Glucose POC Glucose 201 H 205 H 106 H Lactic Acid Calcium Magnesium Ferritin Total Bilirubin Direct Bilirubin AST ALT Alkaline Phosphatase Lactate Dehydrogenase C-Reactive Protein Total Protein Albumin Triglycerides Lipase Arterial Blood Glucose Arterial Blood Ionized Calcium Urine WBC (Auto) Coronavirus (PCR) SARS-CoV-2 IgG Ab Crossmatch 07/20/20 07/20/20 07/20/20 05:28 11:18 17:30 WBC RBC Hgb Hct MCV MCH MCHC RDW Lymph % (Auto) [place] % (Auto) Lymph # (Auto) [place] # (Auto) Baso # (Auto) Seg Neutrophils % Seg Neuts % (Manual) Lymphocytes % (Manual) Nucleated RBC % Seg Neutrophils # Seg Neutrophils # Man Lymphocytes # (Manual) Monocytes # (Manual) Eosinophils # (Manual) PT INR APTT D-Dimer Heparin Anti-Xa Level ABG pH POC ABG pCO2 POC ABG pO2 ABG pO2 ABG HCO3 ABG O2 Saturation ABG Base Excess ABG Hemoglobin ABG Oxyhemoglobin ABG Sodium ABG Potassium ABG Chloride ABG Glucose Oxyhemoglobin Carboxyhemoglobin Sodium Potassium Chloride Carbon Dioxide BUN Creatinine Glucose POC Glucose 130 H 195 H 141 H Lactic Acid Calcium Magnesium Ferritin Total Bilirubin Direct Bilirubin AST ALT Alkaline Phosphatase Lactate Dehydrogenase C-Reactive Protein Total Protein Albumin Triglycerides Lipase Arterial Blood Glucose Arterial Blood Ionized Calcium Urine WBC (Auto) Coronavirus (PCR) SARS-CoV-2 IgG Ab Crossmatch 07/20/20 07/21/20 07/21/20 23:26 05:03 17:03 WBC RBC Hgb Hct MCV MCH MCHC RDW Lymph % (Auto) [place] % (Auto) Lymph # (Auto) [place] # (Auto) Baso # (Auto) Seg Neutrophils % Seg Neuts % (Manual) Lymphocytes % (Manual) Nucleated RBC % Seg Neutrophils # Seg Neutrophils # Man Lymphocytes # (Manual) Monocytes # (Manual) Eosinophils # (Manual) PT INR APTT D-Dimer Heparin Anti-Xa Level ABG pH POC ABG pCO2 POC ABG pO2 ABG pO2 ABG HCO3 ABG O2 Saturation ABG Base Excess ABG Hemoglobin ABG Oxyhemoglobin ABG Sodium ABG Potassium ABG Chloride ABG Glucose Oxyhemoglobin Carboxyhemoglobin Sodium Potassium Chloride Carbon Dioxide BUN Creatinine Glucose POC Glucose 116 H 142 H 181 H Lactic Acid Calcium Magnesium Ferritin Total Bilirubin Direct Bilirubin AST ALT Alkaline Phosphatase Lactate Dehydrogenase C-Reactive Protein Total Protein Albumin Triglycerides Lipase Arterial Blood Glucose Arterial Blood Ionized Calcium Urine WBC (Auto) Coronavirus (PCR) SARS-CoV-2 IgG Ab Crossmatch Chest x-ray: report reviewed, image reviewed Additional Studies: CHEST 1 VIEW 07/21/20 INDICATION / CLINICAL INFORMATION: f/u chest tube on water seal. COMPARISON: 07/19/2020, 07/17/2020, 07/16/2020. FINDINGS: SUPPORT DEVICES: Interval extubation and removal of gastric tube. A right-sided chest tube appears not significantly changed. HEART / MEDIASTINUM: No significant abnormality. LUNGS / PLEURA: Stable diffuse mild airspace disease bilaterally. No significant pneumothorax. No definite pleural effusion. ADDITIONAL FINDINGS: No significant additional findings. IMPRESSION: 1. Interval extubation and removal of gastric tube. A right-sided chest tube appears not significantly changed. No significant pneumothorax. 2. Stable diffuse mild airspace disease bilaterally. Allied health notes reviewed: nursing
[2020-07-22] MEDS: CEFEPIME/NS 2 GM/100 ML 2 GM/100 ML BAG IV SCH ×3 (05:55→20:55)
[2020-07-22] MEDS: INSULIN LISPRO 100 UNIT/ML VIAL 3 mL SUB-Q SCH ×4 (06:36→18:59)
--- NOTE | 2020-07-22 10:16 | Progress Note ---
Subjective - Reason for Consult Consult date: 07/22/20 Reason for consult: MHE Requesting physician: MARIA DE JESUS CALZADA - Chief Complaint Chief complaint: ICU Nurse:1900 Pt. received awake, alert and oriented x 3. O2 sat = 90%. Lungs clear but diminished. telemetry monitor showing ST. Non productive cough noted. Right chest tube intact to wall suction serosanguineous drainage. Condom cath to BSD camilo color urine. Left AC and left forearm INT's in use. No s/s of infiltration at sites. Sacral dsg. intact. Denies pain at this time.In no acute distress. Will continue to monitor. Psych Progress Patient seen today, alert and oriented with improved mood and affect, denies SI, HI, or AVH. Nurse reports patient very clear and no Bhev concerns MENTAL STATUS EXAMINATION General Appearance and Behavior: Age appropriate, good hygiene, wearing appropriate clothes, cooperative polite with questioning. Cooperation: engaged Psychomotor Behavior: Psychomotor normal Mood: feel better Affect and affective range: congruent with mood Thought Process: logical Thought Content: within reality Speech: Low volume, Regular rate and rhythm, Intellectual Functioning: improved Suicidal Ideation: none Homicidal Ideation: none Impulse Control: Unimpaired Insight and Judgment: unimpaired Memory: memory improved Attention: alert and oriented Assessment and Plan - Psychiatric problem (1) Delirium due to another medical condition Current Visit: Yes Status: Acute F05 Treatment Continue current medications MEDICATIONS: Risks, benefits and alternatives of medications discussed with the patient, questions answered and consent obtained from patient. PSYCHOTHERAPY: Supportive psychotherapy provided MEDICAL: Per primary team DELIRIUM PRECAUTIONS: Please re-orient patient frequently, keep lights on during the day, and minimize benzodiazepines and opiates as these medications could worsen patient's confusion. COMBO WELDER: DISPOSITION: Do Not Recommend acute inpatient psychiatric hospitalization at this time but patient will be followed. Case discussed with Dr. Foster who agrees with current disposition FOLLOW-UP: Will follow Thank you for the consult. Please contact with any questions and/or concerns. Mental Status Exam - Vital signs Last Vital Signs Temp 98.6 F 07/22/20 04:00 Pulse 110 H 07/22/20 06:00 Resp 19 07/22/20 06:00 BP 120/77 07/22/20 06:00 Pulse Ox 93 07/22/20 10:14 Assessment and Plan - Patient Problems (1) Delirium due to another medical condition Current Visit: Yes Status: Acute
[2020-07-22] MEDS: PHENobarbital 32.4 MG TAB PO SCH ×2 (10:45→22:06)
[2020-07-22] MEDS: FOLIC ACID 1 MG TAB PO SCH (10:46)
[2020-07-22] MEDS: LANSOPRAZOLE 30 MG SOLUTAB FEEDTUBE SCH (10:46)
[2020-07-22] MEDS: METOPROLOL TARTRATE 25 MG TAB PO SCH ×2 (10:46→22:07)
[2020-07-22] MEDS: QUEtiapine 200 MG TAB PO SCH (10:46)
[2020-07-22] MEDS: MIDODRINE 5 MG TAB PO SCH ×3 (10:46→18:59)
[2020-07-22] MEDS: ENOXAPARIN 80 MG/0.8 ML INJ SUB-Q SCH ×2 (10:47→22:04)
[2020-07-22] MEDS: guaiFENesin ER 600 MG TAB PO SCH ×2 (10:47→22:06)
[2020-07-22] MEDS: ENOXAPARIN 30 MG/0.3 ML INJ SUB-Q SCH ×2 (10:47→22:05)
[2020-07-22] MEDS: methylPREDNISolone Sod Succinate 40 MG/1 ML INJ IV SCH (10:48)
[2020-07-22] MEDS: DOCUSATE SODIUM 100 MG/10 ML ORAL LIQD PO SCH ×2 (10:49→22:04)
--- NOTE | 2020-07-22 11:41 | Progress Note ---
Assessment and Plan Acute hypoxemic respiratory failure due to COVID-19 Severe Sepsis Bilateral pneumonia Acute kidney injury (SEN) with acute tubular necrosis (ATN) Alcohol dependence Elevated liver function tests - clamped chest tube - get CXR in 4-6 hours and tomorrow am - if not recurrent PTX will notify surgeon - continue to wean supplemental oxygen for target O2 sat's > 92% acutely - continue care as below otherwise; - Psychiatry input appreciated - continue BIPAP scheduled qhs with prn daytime use - continue bid protonix - continue bowel regimen - aspiration precautions - continue bronchodilators with pulmonary hygiene per RT - accuchecks with glycemic control per SSI for target blood glucose of < 180 mg/dL; avoid hypoglycemia - enteral nutritional support at goal rate as tolerated - repeat COVID-19 testing is negative X 2 - continue Zinc & Vit C supplementaion - wean systemic steroids for Asthma / severe COVID infection - continue empiric full dose anticoagulation re: elevated d-dimers / hypercoagulable state - completed remdesivir dosing (total 5 days) - empiric AB's coverage per ID rec's - avoid nephrotoxins, renally dose all medications - continue to avoid benzodiazepine's, reduce the possibility of delirium - continue wound care per RN / WCN - prn analgesia per CPOT score - Maintenance of sleep-wake cycle, avoid delirium - continue to avoid benzodiazepine's, reduce the possibility of delirium - aspiration precautions - G.I. & VTE prophylaxis - PT/OT/ROM exercises - continue mobility protocols for pressure ulcer prophylaxis - Monitor hemodynamics closely - continue other care per attending / other consultants - discharge planning ongoing concurrently - transfer to [facility] ok .... Re-evaluate in am & prn CONDITION: FAIR PROGNOSIS: GUARDED CODE STATUS: FULL CODE I have spent ( >35 ) minutes with the patient w/ >50% of the time spent counseling and/or coordinating care for this patient. Counseling topics and/or how time was spent coordinating patient's care is outlined in the impression and plan above. Subjective Date of service: 07/22/20 Principal diagnosis: Ac hypoxemic resp failure; COVID-19; Severe Sepsis; Shaggy PN A; Alcohol Abuse Interval history: Patient is seen today for: Acute hypoxemic respiratory failure due to COVID-19; Severe Sepsis; Bilateral pneumonia; Alcohol dependence; Elevated liver function tests Seen and examined at bedside; 24hour events reviewed; nursing and respiratory care staff consulted; no adverse overnight events reported to me; resting in bed; remains on supplemental oxygen; FiO2 at 100% with flow at 8; denies chest pain; chest tube remains in place; no N/V/F/C Objective Vital Signs - 12hr 07/21/20 07/22/20 07/22/20 23:46 00:00 00:32 Temperature 97.2 F L Pulse Rate 109 H 108 H 107 H Respiratory 24 27 H Rate Respiratory Rate [Left Leg] Blood Pressure 106/70 106/70 O2 Sat by Pulse 94 100 Oximetry 07/22/20 07/22/20 07/22/20 01:00 02:00 03:00 Temperature Pulse Rate 107 H 105 H 109 H Respiratory 41 H 34 H 30 H Rate Respiratory Rate [Left Leg] Blood Pressure 112/70 119/75 119/75 O2 Sat by Pulse 93 92 98 Oximetry 07/22/20 07/22/20 07/22/20 04:00 05:00 05:05 Temperature 98.6 F Pulse Rate 107 H 106 H 105 H Respiratory 18 21 Rate Respiratory 20 Rate [Left Leg] Blood Pressure 118/73 123/82 O2 Sat by Pulse 92 95 Oximetry 07/22/20 07/22/20 07/22/20 06:00 07:36 10:14 Temperature Pulse Rate 110 H Respiratory 19 Rate Respiratory Rate [Left Leg] Blood Pressure 120/77 O2 Sat by Pulse 88 95 93 Oximetry Constitutional: appears uncomfortable, other (middle aged obese male with mildly increased respiratory effort at rest ) Eyes: non-icteric ENT: oropharynx moist, other (extubated) Neck: supple, no JVD Effort: mildly labored Ascultation: Bilateral: diminished breath sounds, rhonchi (scant), other (r. chest tube) Percussion: Bilateral: not dull Cardiovascular: regular rate and rhythm, other (No R/M) Gastrointestinal: normoactive bowel sounds, soft, non-tender, non-distended (protuberant), other (distended and firm) Integumentary: normal Extremities: no cyanosis, no edema, pulses normal, no ischemia or petechiae Neurologic: non-focal exam (non focal grossly; weak), pupils equal and round, CN II-XII normal, motor strength normal and (very weak ) Psychiatric: mood appropriate, affect normal CBC and BMP: 07/23/20 05:58 07/23/20 05:58 ABG, PT/INR, D-dimer: ABG ABG pH 7.477 (7.320-7.450) H 07/13/20 13:52 POC ABG pCO2 54.4 mmHg (32.0-48.0) H 07/13/20 13:52 ABG pCO2 53.1 mm Hg 07/08/20 Unknown POC ABG pO2 126.8 mmHg (83-108) H 07/13/20 13:52 ABG pO2 75.3 mm Hg (80.0-90.0) L 07/08/20 Unknown POC ABG HCO3 39.3 07/13/20 13:52 ABG O2 Saturation 96.5 % (95.0-99.0) 07/08/20 Unknown PT/INR, D-dimer PT 11.8 Sec. (12.2-14.9) L 06/22/20 14:29 INR 0.88 (0.87-1.13) 06/22/20 14:29 D-Dimer 1887.82 ng/mlDDU (0-234) H 05/20/20 08:16 Abnormal lab findings: Abnormal Labs 05/09/20 05/09/20 05/09/20 12:59 12:59 12:59 WBC 11.8 H RBC Hgb Hct MCV 96 H MCH 34 H MCHC 35 H RDW Lymph % (Auto) 6.9 L [place] % (Auto) Lymph # (Auto) 0.8 L [place] # (Auto) Baso # (Auto) Seg Neutrophils % 87.5 H Seg Neuts % (Manual) Lymphocytes % (Manual) Nucleated RBC % Seg Neutrophils # 10.3 H Seg Neutrophils # Man Lymphocytes # (Manual) Monocytes # (Manual) Eosinophils # (Manual) PT INR APTT D-Dimer Heparin Anti-Xa Level ABG pH POC ABG pCO2 POC ABG pO2 ABG pO2 ABG HCO3 ABG O2 Saturation ABG Base Excess ABG Hemoglobin ABG Oxyhemoglobin ABG Sodium ABG Potassium ABG Chloride ABG Glucose Oxyhemoglobin Carboxyhemoglobin Sodium 130 L Potassium 3.5 L Chloride 86.4 L Carbon Dioxide BUN 33 H Creatinine 2.3 H Glucose 156 H POC Glucose Lactic Acid Calcium Magnesium Ferritin Total Bilirubin 3.40 H Direct Bilirubin 1.7 H AST 385 H ALT 134 H Alkaline Phosphatase Lactate Dehydrogenase C-Reactive Protein Total Protein Albumin 3.0 L Triglycerides Lipase Arterial Blood Glucose Arterial Blood Ionized Calcium Urine WBC (Auto) Coronavirus (PCR) SARS-CoV-2 IgG Ab Crossmatch 05/09/20 05/09/20 05/09/20 12:59 12:59 12:59 WBC RBC Hgb Hct MCV MCH MCHC RDW Lymph % (Auto) [place] % (Auto) Lymph # (Auto) [place] # (Auto) Baso # (Auto) Seg Neutrophils % Seg Neuts % (Manual) Lymphocytes % (Manual) Nucleated RBC % Seg Neutrophils # Seg Neutrophils # Man Lymphocytes # (Manual) Monocytes # (Manual) Eosinophils # (Manual) PT INR APTT D-Dimer 3242.51 H Heparin Anti-Xa Level ABG pH POC ABG pCO2 POC ABG pO2 ABG pO2 ABG HCO3 ABG O2 Saturation ABG Base Excess ABG Hemoglobin ABG Oxyhemoglobin ABG Sodium ABG Potassium ABG Chloride ABG Glucose Oxyhemoglobin Carboxyhemoglobin Sodium Potassium Chloride Carbon Dioxide BUN Creatinine Glucose 158 H POC Glucose Lactic Acid 3.50 H* Calcium Magnesium Ferritin Total Bilirubin Direct Bilirubin AST ALT Alkaline Phosphatase Lactate Dehydrogenase 2166 H C-Reactive Protein 39.00 H Total Protein Albumin Triglycerides Lipase Arterial Blood Glucose Arterial Blood Ionized Calcium Urine WBC (Auto) Coronavirus (PCR) SARS-CoV-2 IgG Ab Crossmatch 05/09/20 05/09/20 05/09/20 12:59 14:20 14:20 WBC RBC Hgb Hct MCV MCH MCHC RDW Lymph % (Auto) [place] % (Auto) Lymph # (Auto) [place] # (Auto) Baso # (Auto) Seg Neutrophils % Seg Neuts % (Manual) Lymphocytes % (Manual) Nucleated RBC % Seg Neutrophils # Seg Neutrophils # Man Lymphocytes # (Manual) Monocytes # (Manual) Eosinophils # (Manual) PT INR APTT D-Dimer 2861.78 H Heparin Anti-Xa Level ABG pH POC ABG pCO2 POC ABG pO2 ABG pO2 ABG HCO3 ABG O2 Saturation ABG Base Excess ABG Hemoglobin ABG Oxyhemoglobin ABG Sodium ABG Potassium ABG Chloride ABG Glucose Oxyhemoglobin Carboxyhemoglobin Sodium Potassium Chloride Carbon Dioxide BUN Creatinine Glucose POC Glucose Lactic Acid 2.20 H* Calcium Magnesium Ferritin 50585.0 H Total Bilirubin Direct Bilirubin AST ALT Alkaline Phosphatase Lactate Dehydrogenase C-Reactive Protein Total Protein Albumin Triglycerides Lipase Arterial Blood Glucose Arterial Blood Ionized Calcium Urine WBC (Auto) Coronavirus (PCR) SARS-CoV-2 IgG Ab Crossmatch 05/09/20 05/09/20 05/09/20 14:20 14:20 15:56 WBC RBC Hgb Hct MCV MCH MCHC RDW Lymph % (Auto) [place] % (Auto) Lymph # (Auto) [place] # (Auto) Baso # (Auto) Seg Neutrophils % Seg Neuts % (Manual) Lymphocytes % (Manual) Nucleated RBC % Seg Neutrophils # Seg Neutrophils # Man Lymphocytes # (Manual) Monocytes # (Manual) Eosinophils # (Manual) PT INR APTT D-Dimer Heparin Anti-Xa Level ABG pH POC ABG pCO2 POC ABG pO2 57.3 L ABG pO2 ABG HCO3 ABG O2 Saturation ABG Base Excess ABG Hemoglobin ABG Oxyhemoglobin 86.3 L ABG Sodium 129.9 L ABG Potassium ABG Chloride ABG Glucose 146 H Oxyhemoglobin Carboxyhemoglobin Sodium Potassium Chloride Carbon Dioxide BUN Creatinine Glucose 143 H POC Glucose Lactic Acid Calcium Magnesium Ferritin 43203.0 H Total Bilirubin Direct Bilirubin AST ALT Alkaline Phosphatase Lactate Dehydrogenase 1953 H C-Reactive Protein 33.50 H Total Protein Albumin Triglycerides Lipase Arterial Blood Glucose 146 H Arterial Blood Ionized Calcium 3.9 L Urine WBC (Auto) Coronavirus (PCR) SARS-CoV-2 IgG Ab Crossmatch 05/10/20 05/10/20 05/10/20 10:32 10:32 18:50 WBC 15.4 H RBC Hgb Hct MCV 97 H MCH 33 H MCHC RDW 13.1 L Lymph % (Auto) [place] % (Auto) Lymph # (Auto) [place] # (Auto) Baso # (Auto) Seg Neutrophils % Seg Neuts % (Manual) 89.0 H Lymphocytes % (Manual) 8.0 L Nucleated RBC % Seg Neutrophils # Seg Neutrophils # Man 13.7 H Lymphocytes # (Manual) Monocytes # (Manual) Eosinophils # (Manual) PT INR APTT D-Dimer Heparin Anti-Xa Level ABG pH POC ABG pCO2 POC ABG pO2 ABG pO2 ABG HCO3 ABG O2 Saturation ABG Base Excess ABG Hemoglobin ABG Oxyhemoglobin ABG Sodium ABG Potassium ABG Chloride ABG Glucose Oxyhemoglobin Carboxyhemoglobin Sodium 136 L Potassium Chloride 97.4 L Carbon Dioxide BUN 37 H Creatinine 1.7 H Glucose 209 H POC Glucose Lactic Acid Calcium Magnesium Ferritin > 2000.0 H Total Bilirubin Direct Bilirubin AST ALT Alkaline Phosphatase Lactate Dehydrogenase C-Reactive Protein Total Protein Albumin Triglycerides Lipase Arterial Blood Glucose Arterial Blood Ionized Calcium Urine WBC (Auto) Coronavirus (PCR) SARS-CoV-2 IgG Ab Crossmatch 05/10/20 05/10/20 05/10/20 18:50 19:00 Unknown WBC RBC Hgb Hct MCV MCH MCHC RDW Lymph % (Auto) [place] % (Auto) Lymph # (Auto) [place] # (Auto) Baso # (Auto) Seg Neutrophils % Seg Neuts % (Manual) Lymphocytes % (Manual) Nucleated RBC % Seg Neutrophils # Seg Neutrophils # Man Lymphocytes # (Manual) Monocytes # (Manual) Eosinophils # (Manual) PT INR APTT D-Dimer > 87985 H Heparin Anti-Xa Level ABG pH POC ABG pCO2 POC ABG pO2 ABG pO2 ABG HCO3 ABG O2 Saturation ABG Base Excess ABG Hemoglobin ABG Oxyhemoglobin ABG Sodium ABG Potassium ABG Chloride ABG Glucose Oxyhemoglobin Carboxyhemoglobin Sodium Potassium Chloride Carbon Dioxide BUN Creatinine Glucose POC Glucose Lactic Acid Calcium Magnesium Ferritin Total Bilirubin Direct Bilirubin AST ALT Alkaline Phosphatase Lactate Dehydrogenase 1879 H C-Reactive Protein 24.80 H Total Protein Albumin Triglycerides Lipase Arterial Blood Glucose Arterial Blood Ionized Calcium Urine WBC (Auto) 11.0 H Coronavirus (PCR) SARS-CoV-2 IgG Ab Crossmatch 05/10/20 05/11/20 05/11/20 Unknown 07:30 07:30 WBC RBC Hgb Hct MCV MCH MCHC RDW Lymph % (Auto) [place] % (Auto) Lymph # (Auto) [place] # (Auto) Baso # (Auto) Seg Neutrophils % Seg Neuts % (Manual) Lymphocytes % (Manual) Nucleated RBC % Seg Neutrophils # Seg Neutrophils # Man Lymphocytes # (Manual) Monocytes # (Manual) Eosinophils # (Manual) PT INR APTT D-Dimer > 2000 H Heparin Anti-Xa Level ABG pH POC ABG pCO2 POC ABG pO2 ABG pO2 ABG HCO3 ABG O2 Saturation ABG Base Excess ABG Hemoglobin ABG Oxyhemoglobin ABG Sodium ABG Potassium ABG Chloride ABG Glucose Oxyhemoglobin Carboxyhemoglobin Sodium Potassium Chloride 96.3 L Carbon Dioxide BUN 36 H Creatinine Glucose 161 H POC Glucose Lactic Acid Calcium 8.3 L Magnesium Ferritin Total Bilirubin 1.50 H Direct Bilirubin 0.6 H AST 178 H ALT 111 H Alkaline Phosphatase Lactate Dehydrogenase C-Reactive Protein Total Protein Albumin 3.0 L Triglycerides Lipase Arterial Blood Glucose Arterial Blood Ionized Calcium Urine WBC (Auto) Coronavirus (PCR) Positive A SARS-CoV-2 IgG Ab Crossmatch 05/11/20 05/11/20 05/11/20 07:30 07:30 07:30 WBC RBC Hgb Hct MCV MCH MCHC RDW Lymph % (Auto) [place] % (Auto) Lymph # (Auto) [place] # (Auto) Baso # (Auto) Seg Neutrophils % Seg Neuts % (Manual) Lymphocytes % (Manual) Nucleated RBC % Seg Neutrophils # Seg Neutrophils # Man Lymphocytes # (Manual) Monocytes # (Manual) Eosinophils # (Manual) PT INR APTT D-Dimer Heparin Anti-Xa Level ABG pH POC ABG pCO2 POC ABG pO2 ABG pO2 ABG HCO3 ABG O2 Saturation ABG Base Excess ABG Hemoglobin ABG Oxyhemoglobin ABG Sodium ABG Potassium ABG Chloride ABG Glucose Oxyhemoglobin Carboxyhemoglobin Sodium Potassium Chloride Carbon Dioxide BUN Creatinine Glucose POC Glucose Lactic Acid Calcium Magnesium Ferritin 59583.0 H Total Bilirubin Direct Bilirubin AST ALT Alkaline Phosphatase Lactate Dehydrogenase 1523 H C-Reactive Protein 12.90 H Total Protein Albumin Triglycerides Lipase Arterial Blood Glucose Arterial Blood Ionized Calcium Urine WBC (Auto) Coronavirus (PCR) SARS-CoV-2 IgG Ab Reactive A Crossmatch 05/13/20 05/13/20 05/15/20 05:20 05:20 08:15 WBC RBC Hgb Hct MCV MCH MCHC RDW Lymph % (Auto) [place] % (Auto) Lymph # (Auto) [place] # (Auto) Baso # (Auto) Seg Neutrophils % Seg Neuts % (Manual) Lymphocytes % (Manual) Nucleated RBC % Seg Neutrophils # Seg Neutrophils # Man Lymphocytes # (Manual) Monocytes # (Manual) Eosinophils # (Manual) PT INR APTT D-Dimer > 42941 H 5318.28 H Heparin Anti-Xa Level ABG pH POC ABG pCO2 POC ABG pO2 ABG pO2 ABG HCO3 ABG O2 Saturation ABG Base Excess ABG Hemoglobin ABG Oxyhemoglobin ABG Sodium ABG Potassium ABG Chloride ABG Glucose Oxyhemoglobin Carboxyhemoglobin Sodium Potassium Chloride Carbon Dioxide 32 H BUN 30 H Creatinine Glucose 156 H POC Glucose Lactic Acid Calcium Magnesium 2.60 H Ferritin Total Bilirubin 1.40 H Direct Bilirubin AST 121 H ALT 119 H Alkaline Phosphatase Lactate Dehydrogenase 957 H C-Reactive Protein 4.00 H Total Protein Albumin 3.0 L Triglycerides Lipase Arterial Blood Glucose Arterial Blood Ionized Calcium Urine WBC (Auto) Coronavirus (PCR) SARS-CoV-2 IgG Ab Crossmatch 05/15/20 05/15/20 05/15/20 08:15 08:15 08:15 WBC 12.4 H RBC Hgb Hct MCV 98 H MCH 33 H MCHC RDW Lymph % (Auto) 9.7 L [place] % (Auto) Lymph # (Auto) [place] # (Auto) Baso # (Auto) Seg Neutrophils % 86.8 H Seg Neuts % (Manual) Lymphocytes % (Manual) Nucleated RBC % Seg Neutrophils # 10.8 H Seg Neutrophils # Man Lymphocytes # (Manual) Monocytes # (Manual) Eosinophils # (Manual) PT INR APTT D-Dimer Heparin Anti-Xa Level ABG pH POC ABG pCO2 POC ABG pO2 ABG pO2 ABG HCO3 ABG O2 Saturation ABG Base Excess ABG Hemoglobin ABG Oxyhemoglobin ABG Sodium ABG Potassium ABG Chloride ABG Glucose Oxyhemoglobin Carboxyhemoglobin Sodium Potassium Chloride 94.8 L Carbon Dioxide 32 H BUN 22 H Creatinine Glucose 115 H POC Glucose Lactic Acid Calcium 8.3 L Magnesium Ferritin 2494.0 H Total Bilirubin Direct Bilirubin AST 73 H ALT 121 H Alkaline Phosphatase Lactate Dehydrogenase 835 H C-Reactive Protein 3.40 H Total Protein 6.1 L Albumin 3.0 L Triglycerides Lipase Arterial Blood Glucose Arterial Blood Ionized Calcium Urine WBC (Auto) Coronavirus (PCR) SARS-CoV-2 IgG Ab Crossmatch 05/17/20 05/17/20 05/17/20 05:50 05:50 05:50 WBC RBC Hgb Hct MCV MCH MCHC RDW Lymph % (Auto) [place] % (Auto) Lymph # (Auto) [place] # (Auto) Baso # (Auto) Seg Neutrophils % Seg Neuts % (Manual) Lymphocytes % (Manual) Nucleated RBC % Seg Neutrophils # Seg Neutrophils # Man Lymphocytes # (Manual) Monocytes # (Manual) Eosinophils # (Manual) PT INR APTT D-Dimer 2911.42 H Heparin Anti-Xa Level ABG pH POC ABG pCO2 POC ABG pO2 ABG pO2 ABG HCO3 ABG O2 Saturation ABG Base Excess ABG Hemoglobin ABG Oxyhemoglobin ABG Sodium ABG Potassium ABG Chloride ABG Glucose Oxyhemoglobin Carboxyhemoglobin Sodium 136 L Potassium Chloride 96.0 L Carbon Dioxide 34 H BUN 22 H Creatinine Glucose 140 H POC Glucose Lactic Acid Calcium Magnesium Ferritin 2082.0 H Total Bilirubin Direct Bilirubin AST ALT 75 H Alkaline Phosphatase Lactate Dehydrogenase 601 H C-Reactive Protein 2.70 H Total Protein Albumin 2.9 L Triglycerides Lipase Arterial Blood Glucose Arterial Blood Ionized Calcium Urine WBC (Auto) Coronavirus (PCR) SARS-CoV-2 IgG Ab Crossmatch 05/17/20 05/18/20 05/20/20 05:50 12:22 08:16 WBC RBC Hgb Hct MCV 98 H MCH 33 H MCHC RDW Lymph % (Auto) 8.0 L [place] % (Auto) Lymph # (Auto) 0.8 L [place] # (Auto) Baso # (Auto) Seg Neutrophils % 89.3 H Seg Neuts % (Manual) Lymphocytes % (Manual) Nucleated RBC % Seg Neutrophils # 8.8 H Seg Neutrophils # Man Lymphocytes # (Manual) Monocytes # (Manual) Eosinophils # (Manual) PT INR APTT D-Dimer 1887.82 H Heparin Anti-Xa Level ABG pH POC ABG pCO2 POC ABG pO2 ABG pO2 ABG HCO3 ABG O2 Saturation ABG Base Excess ABG Hemoglobin ABG Oxyhemoglobin ABG Sodium ABG Potassium ABG Chloride ABG Glucose Oxyhemoglobin Carboxyhemoglobin Sodium Potassium Chloride Carbon Dioxide BUN Creatinine Glucose POC Glucose 178 H Lactic Acid Calcium Magnesium Ferritin Total Bilirubin Direct Bilirubin AST ALT Alkaline Phosphatase Lactate Dehydrogenase C-Reactive Protein Total Protein Albumin Triglycerides Lipase Arterial Blood Glucose Arterial Blood Ionized Calcium Urine WBC (Auto) Coronavirus (PCR) SARS-CoV-2 IgG Ab Crossmatch 05/20/20 05/20/20 05/21/20 08:16 08:16 21:10 WBC RBC Hgb Hct MCV MCH MCHC RDW Lymph % (Auto) [place] % (Auto) Lymph # (Auto) [place] # (Auto) Baso # (Auto) Seg Neutrophils % Seg Neuts % (Manual) Lymphocytes % (Manual) Nucleated RBC % Seg Neutrophils # Seg Neutrophils # Man Lymphocytes # (Manual) Monocytes # (Manual) Eosinophils # (Manual) PT INR APTT D-Dimer Heparin Anti-Xa Level ABG pH 7.483 H POC ABG pCO2 POC ABG pO2 ABG pO2 50.0 L ABG HCO3 27.0 H ABG O2 Saturation 86.2 L ABG Base Excess 3.7 H ABG Hemoglobin ABG Oxyhemoglobin ABG Sodium ABG Potassium ABG Chloride ABG Glucose Oxyhemoglobin 84.2 L Carboxyhemoglobin Sodium Potassium Chloride Carbon Dioxide BUN Creatinine Glucose POC Glucose Lactic Acid Calcium Magnesium Ferritin 1960.0 H Total Bilirubin Direct Bilirubin AST ALT Alkaline Phosphatase Lactate Dehydrogenase 705 H C-Reactive Protein 3.10 H Total Protein Albumin Triglycerides Lipase Arterial Blood Glucose Arterial Blood Ionized Calcium Urine WBC (Auto) Coronavirus (PCR) SARS-CoV-2 IgG Ab Crossmatch 05/22/20 05/22/20 05/22/20 04:01 07:53 07:53 WBC 19.2 H RBC Hgb Hct MCV 98 H MCH 34 H MCHC RDW Lymph % (Auto) [place] % (Auto) Lymph # (Auto) [place] # (Auto) Baso # (Auto) Seg Neutrophils % Seg Neuts % (Manual) 96.0 H Lymphocytes % (Manual) 1.0 L Nucleated RBC % Seg Neutrophils # Seg Neutrophils # Man 18.4 H Lymphocytes # (Manual) 0.2 L Monocytes # (Manual) Eosinophils # (Manual) PT INR APTT D-Dimer Heparin Anti-Xa Level ABG pH POC ABG pCO2 53.8 H POC ABG pO2 125.5 H ABG pO2 ABG HCO3 ABG O2 Saturation ABG Base Excess ABG Hemoglobin ABG Oxyhemoglobin ABG Sodium 131.8 L ABG Potassium 4.8 H ABG Chloride 94.0 L ABG Glucose 163 H Oxyhemoglobin Carboxyhemoglobin Sodium 131 L Potassium Chloride 93.4 L Carbon Dioxide BUN 40 H Creatinine Glucose 176 H POC Glucose Lactic Acid Calcium Magnesium 2.70 H Ferritin Total Bilirubin 1.80 H Direct Bilirubin AST 45 H ALT 116 H Alkaline Phosphatase 181 H Lactate Dehydrogenase C-Reactive Protein Total Protein Albumin 2.6 L Triglycerides Lipase Arterial Blood Glucose 163 H Arterial Blood Ionized Calcium 4.5 L Urine WBC (Auto) Coronavirus (PCR) SARS-CoV-2 IgG Ab Crossmatch 05/23/20 05/24/20 05/24/20 04:17 03:07 04:08 WBC RBC Hgb Hct MCV MCH MCHC RDW Lymph % (Auto) [place] % (Auto) Lymph # (Auto) [place] # (Auto) Baso # (Auto) Seg Neutrophils % Seg Neuts % (Manual) Lymphocytes % (Manual) Nucleated RBC % Seg Neutrophils # Seg Neutrophils # Man Lymphocytes # (Manual) Monocytes # (Manual) Eosinophils # (Manual) PT INR APTT D-Dimer Heparin Anti-Xa Level ABG pH 7.328 L POC ABG pCO2 POC ABG pO2 ABG pO2 72.8 L 73.4 L ABG HCO3 31.0 H 34.0 H ABG O2 Saturation 93.5 L ABG Base Excess 3.5 H 7.7 H ABG Hemoglobin 13.3 L 12.1 L ABG Oxyhemoglobin ABG Sodium ABG Potassium ABG Chloride ABG Glucose Oxyhemoglobin 91.5 L 94.3 L Carboxyhemoglobin Sodium Potassium Chloride Carbon Dioxide BUN Creatinine Glucose POC Glucose 155 H Lactic Acid Calcium Magnesium Ferritin Total Bilirubin Direct Bilirubin AST ALT Alkaline Phosphatase Lactate Dehydrogenase C-Reactive Protein Total Protein Albumin Triglycerides Lipase Arterial Blood Glucose Arterial Blood Ionized Calcium Urine WBC (Auto) Coronavirus (PCR) SARS-CoV-2 IgG Ab Crossmatch 05/24/20 05/24/20 05/24/20 09:33 12:21 17:52 WBC RBC Hgb Hct MCV MCH MCHC RDW Lymph % (Auto) [place] % (Auto) Lymph # (Auto) [place] # (Auto) Baso # (Auto) Seg Neutrophils % Seg Neuts % (Manual) Lymphocytes % (Manual) Nucleated RBC % Seg Neutrophils # Seg Neutrophils # Man Lymphocytes # (Manual) Monocytes # (Manual) Eosinophils # (Manual) PT INR APTT D-Dimer Heparin Anti-Xa Level ABG pH POC ABG pCO2 POC ABG pO2 ABG pO2 ABG HCO3 ABG O2 Saturation ABG Base Excess ABG Hemoglobin ABG Oxyhemoglobin ABG Sodium ABG Potassium ABG Chloride ABG Glucose Oxyhemoglobin Carboxyhemoglobin Sodium Potassium Chloride Carbon Dioxide 34 H D BUN 28 H Creatinine 0.7 L Glucose 168 H POC Glucose 173 H 164 H Lactic Acid Calcium Magnesium Ferritin Total Bilirubin Direct Bilirubin AST ALT Alkaline Phosphatase Lactate Dehydrogenase C-Reactive Protein Total Protein Albumin Triglycerides Lipase Arterial Blood Glucose Arterial Blood Ionized Calcium Urine WBC (Auto) Coronavirus (PCR) SARS-CoV-2 IgG Ab Crossmatch 05/24/20 05/25/20 05/25/20 23:47 04:29 05:46 WBC RBC Hgb Hct MCV MCH MCHC RDW Lymph % (Auto) [place] % (Auto) Lymph # (Auto) [place] # (Auto) Baso # (Auto) Seg Neutrophils % Seg Neuts % (Manual) Lymphocytes % (Manual) Nucleated RBC % Seg Neutrophils # Seg Neutrophils # Man Lymphocytes # (Manual) Monocytes # (Manual) Eosinophils # (Manual) PT INR APTT D-Dimer Heparin Anti-Xa Level ABG pH POC ABG pCO2 68.6 H POC ABG pO2 ABG pO2 ABG HCO3 ABG O2 Saturation ABG Base Excess ABG Hemoglobin ABG Oxyhemoglobin ABG Sodium ABG Potassium 4.7 H ABG Chloride ABG Glucose 226 H Oxyhemoglobin Carboxyhemoglobin Sodium Potassium Chloride Carbon Dioxide BUN Creatinine Glucose POC Glucose 171 H 201 H Lactic Acid Calcium Magnesium Ferritin Total Bilirubin Direct Bilirubin AST ALT Alkaline Phosphatase Lactate Dehydrogenase C-Reactive Protein Total Protein Albumin Triglycerides Lipase Arterial Blood Glucose 226 H Arterial Blood Ionized Calcium Urine WBC (Auto) Coronavirus (PCR) SARS-CoV-2 IgG Ab Crossmatch 05/25/20 05/25/20 05/25/20 08:37 08:37 12:38 WBC 12.0 H RBC 3.64 L Hgb Hct MCV 99 H MCH 33 H MCHC RDW Lymph % (Auto) [place] % (Auto) Lymph # (Auto) [place] # (Auto) Baso # (Auto) Seg Neutrophils % Seg Neuts % (Manual) Lymphocytes % (Manual) Nucleated RBC % Seg Neutrophils # Seg Neutrophils # Man Lymphocytes # (Manual) Monocytes # (Manual) Eosinophils # (Manual) PT INR APTT D-Dimer Heparin Anti-Xa Level ABG pH POC ABG pCO2 POC ABG pO2 ABG pO2 ABG HCO3 ABG O2 Saturation ABG Base Excess ABG Hemoglobin ABG Oxyhemoglobin ABG Sodium ABG Potassium ABG Chloride ABG Glucose Oxyhemoglobin Carboxyhemoglobin Sodium Potassium Chloride 97.3 L Carbon Dioxide 35 H BUN 25 H Creatinine 0.7 L Glucose 191 H POC Glucose 182 H Lactic Acid Calcium Magnesium Ferritin Total Bilirubin Direct Bilirubin AST ALT Alkaline Phosphatase Lactate Dehydrogenase C-Reactive Protein Total Protein Albumin Triglycerides Lipase Arterial Blood Glucose Arterial Blood Ionized Calcium Urine WBC (Auto) Coronavirus (PCR) SARS-CoV-2 IgG Ab Crossmatch 05/25/20 05/26/20 05/26/20 18:16 00:06 04:50 WBC RBC Hgb Hct MCV MCH MCHC RDW Lymph % (Auto) [place] % (Auto) Lymph # (Auto) [place] # (Auto) Baso # (Auto) Seg Neutrophils % Seg Neuts % (Manual) Lymphocytes % (Manual) Nucleated RBC % Seg Neutrophils # Seg Neutrophils # Man Lymphocytes # (Manual) Monocytes # (Manual) Eosinophils # (Manual) PT INR APTT D-Dimer Heparin Anti-Xa Level ABG pH POC ABG pCO2 POC ABG pO2 ABG pO2 221.5 H ABG HCO3 40.4 H ABG O2 Saturation 99.3 H ABG Base Excess 12.8 H ABG Hemoglobin 10.4 L ABG Oxyhemoglobin ABG Sodium ABG Potassium ABG Chloride ABG Glucose Oxyhemoglobin Carboxyhemoglobin Sodium Potassium Chloride Carbon Dioxide BUN Creatinine Glucose POC Glucose 176 H 152 H Lactic Acid Calcium Magnesium Ferritin Total Bilirubin Direct Bilirubin AST ALT Alkaline Phosphatase Lactate Dehydrogenase C-Reactive Protein Total Protein Albumin Triglycerides Lipase Arterial Blood Glucose Arterial Blood Ionized Calcium Urine WBC (Auto) Coronavirus (PCR) SARS-CoV-2 IgG Ab Crossmatch 05/26/20 05/26/20 05/26/20 06:11 07:51 07:51 WBC 13.4 H RBC 3.64 L Hgb Hct MCV 98 H MCH 33 H MCHC RDW Lymph % (Auto) [place] % (Auto) Lymph # (Auto) [place] # (Auto) Baso # (Auto) Seg Neutrophils % Seg Neuts % (Manual) Lymphocytes % (Manual) Nucleated RBC % Seg Neutrophils # Seg Neutrophils # Man Lymphocytes # (Manual) Monocytes # (Manual) Eosinophils # (Manual) PT INR APTT D-Dimer Heparin Anti-Xa Level ABG pH POC ABG pCO2 POC ABG pO2 ABG pO2 ABG HCO3 ABG O2 Saturation ABG Base Excess ABG Hemoglobin ABG Oxyhemoglobin ABG Sodium ABG Potassium ABG Chloride ABG Glucose Oxyhemoglobin Carboxyhemoglobin Sodium Potassium Chloride 96.6 L Carbon Dioxide 39 H BUN 29 H Creatinine 0.7 L Glucose 174 H POC Glucose 165 H Lactic Acid Calcium Magnesium Ferritin Total Bilirubin Direct Bilirubin AST ALT Alkaline Phosphatase Lactate Dehydrogenase C-Reactive Protein Total Protein Albumin Triglycerides Lipase Arterial Blood Glucose Arterial Blood Ionized Calcium Urine WBC (Auto) Coronavirus (PCR) SARS-CoV-2 IgG Ab Crossmatch 05/26/20 05/27/20 05/27/20 23:23 03:43 05:29 WBC RBC Hgb Hct MCV MCH MCHC RDW Lymph % (Auto) [place] % (Auto) Lymph # (Auto) [place] # (Auto) Baso # (Auto) Seg Neutrophils % Seg Neuts % (Manual) Lymphocytes % (Manual) Nucleated RBC % Seg Neutrophils # Seg Neutrophils # Man Lymphocytes # (Manual) Monocytes # (Manual) Eosinophils # (Manual) PT INR APTT D-Dimer Heparin Anti-Xa Level ABG pH 7.480 H POC ABG pCO2 52.4 H POC ABG pO2 61.4 L ABG pO2 ABG HCO3 ABG O2 Saturation ABG Base Excess ABG Hemoglobin ABG Oxyhemoglobin ABG Sodium 134.9 L ABG Potassium ABG Chloride 95.0 L ABG Glucose 221 H Oxyhemoglobin Carboxyhemoglobin Sodium Potassium Chloride Carbon Dioxide BUN Creatinine Glucose POC Glucose 169 H 227 H Lactic Acid Calcium Magnesium Ferritin Total Bilirubin Direct Bilirubin AST ALT Alkaline Phosphatase Lactate Dehydrogenase C-Reactive Protein Total Protein Albumin Triglycerides Lipase Arterial Blood Glucose 221 H Arterial Blood Ionized Calcium 4.5 L Urine WBC (Auto) Coronavirus (PCR) SARS-CoV-2 IgG Ab Crossmatch 05/27/20 05/27/20 05/27/20 07:19 12:18 13:50 WBC RBC Hgb Hct MCV MCH MCHC RDW Lymph % (Auto) [place] % (Auto) Lymph # (Auto) [place] # (Auto) Baso # (Auto) Seg Neutrophils % Seg Neuts % (Manual) Lymphocytes % (Manual) Nucleated RBC % Seg Neutrophils # Seg Neutrophils # Man Lymphocytes # (Manual) Monocytes # (Manual) Eosinophils # (Manual) PT INR APTT D-Dimer Heparin Anti-Xa Level ABG pH POC ABG pCO2 POC ABG pO2 ABG pO2 ABG HCO3 ABG O2 Saturation ABG Base Excess ABG Hemoglobin ABG Oxyhemoglobin ABG Sodium ABG Potassium ABG Chloride ABG Glucose Oxyhemoglobin Carboxyhemoglobin Sodium Potassium Chloride Carbon Dioxide BUN Creatinine Glucose POC Glucose 114 H 148 H Lactic Acid Calcium Magnesium Ferritin Total Bilirubin Direct Bilirubin AST ALT Alkaline Phosphatase Lactate Dehydrogenase C-Reactive Protein Total Protein Albumin Triglycerides 247 H Lipase Arterial Blood Glucose Arterial Blood Ionized Calcium Urine WBC (Auto) Coronavirus (PCR) SARS-CoV-2 IgG Ab Crossmatch 05/28/20 05/28/20 05/28/20 00:13 04:16 05:22 WBC RBC Hgb Hct MCV MCH MCHC RDW Lymph % (Auto) [place] % (Auto) Lymph # (Auto) [place] # (Auto) Baso # (Auto) Seg Neutrophils % Seg Neuts % (Manual) Lymphocytes % (Manual) Nucleated RBC % Seg Neutrophils # Seg Neutrophils # Man Lymphocytes # (Manual) Monocytes # (Manual) Eosinophils # (Manual) PT INR APTT D-Dimer Heparin Anti-Xa Level ABG pH POC ABG pCO2 64.4 H POC ABG pO2 60.5 L ABG pO2 ABG HCO3 ABG O2 Saturation ABG Base Excess ABG Hemoglobin ABG Oxyhemoglobin ABG Sodium ABG Potassium ABG Chloride 95.0 L ABG Glucose 209 H Oxyhemoglobin Carboxyhemoglobin Sodium Potassium Chloride Carbon Dioxide BUN Creatinine Glucose POC Glucose 155 H 186 H Lactic Acid Calcium Magnesium Ferritin Total Bilirubin Direct Bilirubin AST ALT Alkaline Phosphatase Lactate Dehydrogenase C-Reactive Protein Total Protein Albumin Triglycerides Lipase Arterial Blood Glucose 209 H Arterial Blood Ionized Calcium Urine WBC (Auto) Coronavirus (PCR) SARS-CoV-2 IgG Ab Crossmatch 05/28/20 05/28/20 05/29/20 12:45 17:39 00:37 WBC RBC Hgb Hct MCV MCH MCHC RDW Lymph % (Auto) [place] % (Auto) Lymph # (Auto) [place] # (Auto) Baso # (Auto) Seg Neutrophils % Seg Neuts % (Manual) Lymphocytes % (Manual) Nucleated RBC % Seg Neutrophils # Seg Neutrophils # Man Lymphocytes # (Manual) Monocytes # (Manual) Eosinophils # (Manual) PT INR APTT D-Dimer Heparin Anti-Xa Level ABG pH POC ABG pCO2 POC ABG pO2 ABG pO2 ABG HCO3 ABG O2 Saturation ABG Base Excess ABG Hemoglobin ABG Oxyhemoglobin ABG Sodium ABG Potassium ABG Chloride ABG Glucose Oxyhemoglobin Carboxyhemoglobin Sodium Potassium Chloride Carbon Dioxide BUN Creatinine Glucose POC Glucose 143 H 164 H 221 H Lactic Acid Calcium Magnesium Ferritin Total Bilirubin Direct Bilirubin AST ALT Alkaline Phosphatase Lactate Dehydrogenase C-Reactive Protein Total Protein Albumin Triglycerides Lipase Arterial Blood Glucose Arterial Blood Ionized Calcium Urine WBC (Auto) Coronavirus (PCR) SARS-CoV-2 IgG Ab Crossmatch 05/29/20 05/29/20 05/29/20 04:15 05:33 12:34 WBC RBC Hgb Hct MCV MCH MCHC RDW Lymph % (Auto) [place] % (Auto) Lymph # (Auto) [place] # (Auto) Baso # (Auto) Seg Neutrophils % Seg Neuts % (Manual) Lymphocytes % (Manual) Nucleated RBC % Seg Neutrophils # Seg Neutrophils # Man Lymphocytes # (Manual) Monocytes # (Manual) Eosinophils # (Manual) PT INR APTT D-Dimer Heparin Anti-Xa Level ABG pH 7.463 H POC ABG pCO2 56.3 H POC ABG pO2 81.2 L ABG pO2 ABG HCO3 ABG O2 Saturation ABG Base Excess ABG Hemoglobin ABG Oxyhemoglobin ABG Sodium ABG Potassium ABG Chloride 96.0 L ABG Glucose 194 H Oxyhemoglobin Carboxyhemoglobin Sodium Potassium Chloride Carbon Dioxide BUN Creatinine Glucose POC Glucose 133 H 221 H Lactic Acid Calcium Magnesium Ferritin Total Bilirubin Direct Bilirubin AST ALT Alkaline Phosphatase Lactate Dehydrogenase C-Reactive Protein Total Protein Albumin Triglycerides Lipase Arterial Blood Glucose 194 H Arterial Blood Ionized Calcium 4.5 L Urine WBC (Auto) Coronavirus (PCR) SARS-CoV-2 IgG Ab Crossmatch 05/29/20 05/30/20 05/30/20 18:07 00:12 05:38 WBC RBC Hgb Hct MCV MCH MCHC RDW Lymph % (Auto) [place] % (Auto) Lymph # (Auto) [place] # (Auto) Baso # (Auto) Seg Neutrophils % Seg Neuts % (Manual) Lymphocytes % (Manual) Nucleated RBC % Seg Neutrophils # Seg Neutrophils # Man Lymphocytes # (Manual) Monocytes # (Manual) Eosinophils # (Manual) PT INR APTT D-Dimer Heparin Anti-Xa Level ABG pH POC ABG pCO2 POC ABG pO2 ABG pO2 ABG HCO3 ABG O2 Saturation ABG Base Excess ABG Hemoglobin ABG Oxyhemoglobin ABG Sodium ABG Potassium ABG Chloride ABG Glucose Oxyhemoglobin Carboxyhemoglobin Sodium Potassium Chloride Carbon Dioxide BUN Creatinine Glucose POC Glucose 162 H 190 H 208 H Lactic Acid Calcium Magnesium Ferritin Total Bilirubin Direct Bilirubin AST ALT Alkaline Phosphatase Lactate Dehydrogenase C-Reactive Protein Total Protein Albumin Triglycerides Lipase Arterial Blood Glucose Arterial Blood Ionized Calcium Urine WBC (Auto) Coronavirus (PCR) SARS-CoV-2 IgG Ab Crossmatch 05/30/20 05/30/20 05/30/20 09:30 11:35 11:54 WBC 12.4 H RBC 3.48 L Hgb 11.3 L Hct 34.6 L MCV 99 H MCH 33 H MCHC RDW Lymph % (Auto) [place] % (Auto) Lymph # (Auto) [place] # (Auto) Baso # (Auto) Seg Neutrophils % Seg Neuts % (Manual) Lymphocytes % (Manual) Nucleated RBC % Seg Neutrophils # Seg Neutrophils # Man Lymphocytes # (Manual) Monocytes # (Manual) Eosinophils # (Manual) PT INR APTT D-Dimer Heparin Anti-Xa Level ABG pH 7.455 H POC ABG pCO2 57.5 H POC ABG pO2 81.5 L ABG pO2 ABG HCO3 ABG O2 Saturation ABG Base Excess ABG Hemoglobin ABG Oxyhemoglobin ABG Sodium ABG Potassium ABG Chloride 96.0 L ABG Glucose 204 H Oxyhemoglobin Carboxyhemoglobin Sodium Potassium Chloride Carbon Dioxide BUN Creatinine Glucose POC Glucose 183 H Lactic Acid Calcium Magnesium Ferritin Total Bilirubin Direct Bilirubin AST ALT Alkaline Phosphatase Lactate Dehydrogenase C-Reactive Protein Total Protein Albumin Triglycerides Lipase Arterial Blood Glucose 204 H Arterial Blood Ionized Calcium Urine WBC (Auto) Coronavirus (PCR) SARS-CoV-2 IgG Ab Crossmatch 05/30/20 05/31/20 05/31/20 18:01 00:10 03:22 WBC RBC Hgb Hct MCV MCH MCHC RDW Lymph % (Auto) [place] % (Auto) Lymph # (Auto) [place] # (Auto) Baso # (Auto) Seg Neutrophils % Seg Neuts % (Manual) Lymphocytes % (Manual) Nucleated RBC % Seg Neutrophils # Seg Neutrophils # Man Lymphocytes # (Manual) Monocytes # (Manual) Eosinophils # (Manual) PT INR APTT D-Dimer Heparin Anti-Xa Level ABG pH POC ABG pCO2 60.4 H POC ABG pO2 71.5 L ABG pO2 ABG HCO3 ABG O2 Saturation ABG Base Excess ABG Hemoglobin ABG Oxyhemoglobin ABG Sodium ABG Potassium ABG Chloride 96.0 L ABG Glucose 169 H Oxyhemoglobin Carboxyhemoglobin Sodium Potassium Chloride Carbon Dioxide BUN Creatinine Glucose POC Glucose 184 H 135 H Lactic Acid Calcium Magnesium Ferritin Total Bilirubin Direct Bilirubin AST ALT Alkaline Phosphatase Lactate Dehydrogenase C-Reactive Protein Total Protein Albumin Triglycerides Lipase Arterial Blood Glucose 169 H Arterial Blood Ionized Calcium 4.5 L Urine WBC (Auto) Coronavirus (PCR) SARS-CoV-2 IgG Ab Crossmatch 05/31/20 05/31/20 05/31/20 05:24 11:18 14:41 WBC RBC Hgb Hct MCV MCH MCHC RDW Lymph % (Auto) [place] % (Auto) Lymph # (Auto) [place] # (Auto) Baso # (Auto) Seg Neutrophils % Seg Neuts % (Manual) Lymphocytes % (Manual) Nucleated RBC % Seg Neutrophils # Seg Neutrophils # Man Lymphocytes # (Manual) Monocytes # (Manual) Eosinophils # (Manual) PT INR APTT D-Dimer Heparin Anti-Xa Level ABG pH POC ABG pCO2 POC ABG pO2 ABG pO2 ABG HCO3 ABG O2 Saturation ABG Base Excess ABG Hemoglobin ABG Oxyhemoglobin ABG Sodium ABG Potassium ABG Chloride ABG Glucose Oxyhemoglobin Carboxyhemoglobin Sodium Potassium Chloride 96.8 L Carbon Dioxide 37 H BUN 31 H Creatinine 0.6 L Glucose 213 H POC Glucose 164 H 208 H Lactic Acid Calcium Magnesium Ferritin Total Bilirubin Direct Bilirubin AST ALT Alkaline Phosphatase Lactate Dehydrogenase C-Reactive Protein Total Protein Albumin Triglycerides Lipase Arterial Blood Glucose Arterial Blood Ionized Calcium Urine WBC (Auto) Coronavirus (PCR) SARS-CoV-2 IgG Ab Crossmatch 05/31/20 05/31/20 06/01/20 17:37 23:47 03:48 WBC RBC Hgb Hct MCV MCH MCHC RDW Lymph % (Auto) [place] % (Auto) Lymph # (Auto) [place] # (Auto) Baso # (Auto) Seg Neutrophils % Seg Neuts % (Manual) Lymphocytes % (Manual) Nucleated RBC % Seg Neutrophils # Seg Neutrophils # Man Lymphocytes # (Manual) Monocytes # (Manual) Eosinophils # (Manual) PT INR APTT D-Dimer Heparin Anti-Xa Level ABG pH POC ABG pCO2 59.7 H POC ABG pO2 73.9 L ABG pO2 ABG HCO3 ABG O2 Saturation ABG Base Excess ABG Hemoglobin ABG Oxyhemoglobin ABG Sodium ABG Potassium ABG Chloride 95.0 L ABG Glucose 256 H Oxyhemoglobin Carboxyhemoglobin Sodium Potassium Chloride Carbon Dioxide BUN Creatinine Glucose POC Glucose 168 H 178 H Lactic Acid Calcium Magnesium Ferritin Total Bilirubin Direct Bilirubin AST ALT Alkaline Phosphatase Lactate Dehydrogenase C-Reactive Protein Total Protein Albumin Triglycerides Lipase Arterial Blood Glucose 256 H Arterial Blood Ionized Calcium Urine WBC (Auto) Coronavirus (PCR) SARS-CoV-2 IgG Ab Crossmatch 06/01/20 06/01/20 06/01/20 05:01 07:47 07:47 WBC 14.4 H RBC 3.46 L Hgb 11.1 L Hct 34.3 L MCV 99 H MCH MCHC RDW Lymph % (Auto) [place] % (Auto) Lymph # (Auto) [place] # (Auto) Baso # (Auto) Seg Neutrophils % Seg Neuts % (Manual) 86.0 H Lymphocytes % (Manual) 9.0 L Nucleated RBC % Seg Neutrophils # Seg Neutrophils # Man 12.4 H Lymphocytes # (Manual) Monocytes # (Manual) Eosinophils # (Manual) PT INR APTT D-Dimer Heparin Anti-Xa Level ABG pH POC ABG pCO2 POC ABG pO2 ABG pO2 ABG HCO3 ABG O2 Saturation ABG Base Excess ABG Hemoglobin ABG Oxyhemoglobin ABG Sodium ABG Potassium ABG Chloride ABG Glucose Oxyhemoglobin Carboxyhemoglobin Sodium Potassium Chloride Carbon Dioxide BUN Creatinine Glucose POC Glucose 197 H Lactic Acid Calcium Magnesium Ferritin Total Bilirubin Direct Bilirubin AST ALT Alkaline Phosphatase Lactate Dehydrogenase C-Reactive Protein Total Protein Albumin Triglycerides 244 H Lipase Arterial Blood Glucose Arterial Blood Ionized Calcium Urine WBC (Auto) Coronavirus (PCR) SARS-CoV-2 IgG Ab Crossmatch 06/01/20 06/01/20 06/01/20 07:47 11:46 18:15 WBC RBC Hgb Hct MCV MCH MCHC RDW Lymph % (Auto) [place] % (Auto) Lymph # (Auto) [place] # (Auto) Baso # (Auto) Seg Neutrophils % Seg Neuts % (Manual) Lymphocytes % (Manual) Nucleated RBC % Seg Neutrophils # Seg Neutrophils # Man Lymphocytes # (Manual) Monocytes # (Manual) Eosinophils # (Manual) PT INR APTT D-Dimer Heparin Anti-Xa Level ABG pH POC ABG pCO2 POC ABG pO2 ABG pO2 ABG HCO3 ABG O2 Saturation ABG Base Excess ABG Hemoglobin ABG Oxyhemoglobin ABG Sodium ABG Potassium ABG Chloride ABG Glucose Oxyhemoglobin Carboxyhemoglobin Sodium Potassium Chloride 95.4 L Carbon Dioxide 35 H BUN 30 H Creatinine 0.5 L Glucose 214 H POC Glucose 181 H 221 H Lactic Acid Calcium Magnesium Ferritin Total Bilirubin Direct Bilirubin AST 54 H ALT 235 H Alkaline Phosphatase Lactate Dehydrogenase C-Reactive Protein Total Protein Albumin 2.9 L Triglycerides Lipase Arterial Blood Glucose Arterial Blood Ionized Calcium Urine WBC (Auto) Coronavirus (PCR) SARS-CoV-2 IgG Ab Crossmatch 06/01/20 06/02/20 06/02/20 23:12 04:00 05:31 WBC RBC Hgb Hct MCV MCH MCHC RDW Lymph % (Auto) [place] % (Auto) Lymph # (Auto) [place] # (Auto) Baso # (Auto) Seg Neutrophils % Seg Neuts % (Manual) Lymphocytes % (Manual) Nucleated RBC % Seg Neutrophils # Seg Neutrophils # Man Lymphocytes # (Manual) Monocytes # (Manual) Eosinophils # (Manual) PT INR APTT D-Dimer Heparin Anti-Xa Level ABG pH 7.465 H POC ABG pCO2 POC ABG pO2 ABG pO2 203.4 H ABG HCO3 41.2 H ABG O2 Saturation 99.3 H ABG Base Excess 15.1 H ABG Hemoglobin 11.5 L ABG Oxyhemoglobin ABG Sodium ABG Potassium ABG Chloride ABG Glucose Oxyhemoglobin Carboxyhemoglobin Sodium Potassium Chloride Carbon Dioxide BUN Creatinine Glucose POC Glucose 197 H 184 H Lactic Acid Calcium Magnesium Ferritin Total Bilirubin Direct Bilirubin AST ALT Alkaline Phosphatase Lactate Dehydrogenase C-Reactive Protein Total Protein Albumin Triglycerides Lipase Arterial Blood Glucose Arterial Blood Ionized Calcium Urine WBC (Auto) Coronavirus (PCR) SARS-CoV-2 IgG Ab Crossmatch 06/02/20 06/02/20 06/02/20 11:49 18:06 23:00 WBC RBC Hgb Hct MCV MCH MCHC RDW Lymph % (Auto) [place] % (Auto) Lymph # (Auto) [place] # (Auto) Baso # (Auto) Seg Neutrophils % Seg Neuts % (Manual) Lymphocytes % (Manual) Nucleated RBC % Seg Neutrophils # Seg Neutrophils # Man Lymphocytes # (Manual) Monocytes # (Manual) Eosinophils # (Manual) PT INR APTT D-Dimer Heparin Anti-Xa Level ABG pH POC ABG pCO2 POC ABG pO2 ABG pO2 ABG HCO3 ABG O2 Saturation ABG Base Excess ABG Hemoglobin ABG Oxyhemoglobin ABG Sodium ABG Potassium ABG Chloride ABG Glucose Oxyhemoglobin Carboxyhemoglobin Sodium Potassium Chloride Carbon Dioxide BUN Creatinine Glucose POC Glucose 195 H 177 H 228 H Lactic Acid Calcium Magnesium Ferritin Total Bilirubin Direct Bilirubin AST ALT Alkaline Phosphatase Lactate Dehydrogenase C-Reactive Protein Total Protein Albumin Triglycerides Lipase Arterial Blood Glucose Arterial Blood Ionized Calcium Urine WBC (Auto) Coronavirus (PCR) SARS-CoV-2 IgG Ab Crossmatch 06/03/20 06/03/20 06/03/20 03:58 05:19 12:21 WBC RBC Hgb Hct MCV MCH MCHC RDW Lymph % (Auto) [place] % (Auto) Lymph # (Auto) [place] # (Auto) Baso # (Auto) Seg Neutrophils % Seg Neuts % (Manual) Lymphocytes % (Manual) Nucleated RBC % Seg Neutrophils # Seg Neutrophils # Man Lymphocytes # (Manual) Monocytes # (Manual) Eosinophils # (Manual) PT INR APTT D-Dimer Heparin Anti-Xa Level ABG pH POC ABG pCO2 POC ABG pO2 ABG pO2 171.0 H ABG HCO3 42.8 H ABG O2 Saturation ABG Base Excess 15.6 H ABG Hemoglobin 12.3 L ABG Oxyhemoglobin ABG Sodium ABG Potassium ABG Chloride ABG Glucose Oxyhemoglobin Carboxyhemoglobin Sodium Potassium Chloride Carbon Dioxide BUN Creatinine Glucose POC Glucose 122 H 207 H Lactic Acid Calcium Magnesium Ferritin Total Bilirubin Direct Bilirubin AST ALT Alkaline Phosphatase Lactate Dehydrogenase C-Reactive Protein Total Protein Albumin Triglycerides Lipase Arterial Blood Glucose Arterial Blood Ionized Calcium Urine WBC (Auto) Coronavirus (PCR) SARS-CoV-2 IgG Ab Crossmatch 06/03/20 06/03/20 06/04/20 17:27 23:50 03:55 WBC RBC Hgb Hct MCV MCH MCHC RDW Lymph % (Auto) [place] % (Auto) Lymph # (Auto) [place] # (Auto) Baso # (Auto) Seg Neutrophils % Seg Neuts % (Manual) Lymphocytes % (Manual) Nucleated RBC % Seg Neutrophils # Seg Neutrophils # Man Lymphocytes # (Manual) Monocytes # (Manual) Eosinophils # (Manual) PT INR APTT D-Dimer Heparin Anti-Xa Level ABG pH POC ABG pCO2 POC ABG pO2 ABG pO2 117.2 H ABG HCO3 42.4 H ABG O2 Saturation ABG Base Excess 15.3 H ABG Hemoglobin 10.5 L ABG Oxyhemoglobin ABG Sodium ABG Potassium ABG Chloride ABG Glucose Oxyhemoglobin Carboxyhemoglobin Sodium Potassium Chloride Carbon Dioxide BUN Creatinine Glucose POC Glucose 157 H 214 H Lactic Acid Calcium Magnesium Ferritin Total Bilirubin Direct Bilirubin AST ALT Alkaline Phosphatase Lactate Dehydrogenase C-Reactive Protein Total Protein Albumin Triglycerides Lipase Arterial Blood Glucose Arterial Blood Ionized Calcium Urine WBC (Auto) Coronavirus (PCR) SARS-CoV-2 IgG Ab Crossmatch 06/04/20 06/04/20 06/04/20 05:49 11:41 17:30 WBC RBC Hgb Hct MCV MCH MCHC RDW Lymph % (Auto) [place] % (Auto) Lymph # (Auto) [place] # (Auto) Baso # (Auto) Seg Neutrophils % Seg Neuts % (Manual) Lymphocytes % (Manual) Nucleated RBC % Seg Neutrophils # Seg Neutrophils # Man Lymphocytes # (Manual) Monocytes # (Manual) Eosinophils # (Manual) PT INR APTT D-Dimer Heparin Anti-Xa Level ABG pH POC ABG pCO2 POC ABG pO2 ABG pO2 ABG HCO3 ABG O2 Saturation ABG Base Excess ABG Hemoglobin ABG Oxyhemoglobin ABG Sodium ABG Potassium ABG Chloride ABG Glucose Oxyhemoglobin Carboxyhemoglobin Sodium Potassium Chloride Carbon Dioxide BUN Creatinine Glucose POC Glucose 149 H 233 H 156 H Lactic Acid Calcium Magnesium Ferritin Total Bilirubin Direct Bilirubin AST ALT Alkaline Phosphatase Lactate Dehydrogenase C-Reactive Protein Total Protein Albumin Triglycerides Lipase Arterial Blood Glucose Arterial Blood Ionized Calcium Urine WBC (Auto) Coronavirus (PCR) SARS-CoV-2 IgG Ab Crossmatch 06/04/20 06/04/20 06/04/20 19:01 20:53 23:41 WBC RBC 3.18 L Hgb 10.8 L Hct 31.8 L MCV 100 H MCH 34 H MCHC RDW Lymph % (Auto) [place] % (Auto) Lymph # (Auto) [place] # (Auto) Baso # (Auto) Seg Neutrophils % Seg Neuts % (Manual) 86.0 H Lymphocytes % (Manual) 10.0 L Nucleated RBC % 1.0 H Seg Neutrophils # Seg Neutrophils # Man 8.5 H Lymphocytes # (Manual) 1.0 L Monocytes # (Manual) Eosinophils # (Manual) PT INR APTT D-Dimer Heparin Anti-Xa Level ABG pH POC ABG pCO2 POC ABG pO2 ABG pO2 ABG HCO3 ABG O2 Saturation ABG Base Excess ABG Hemoglobin ABG Oxyhemoglobin ABG Sodium ABG Potassium ABG Chloride ABG Glucose Oxyhemoglobin Carboxyhemoglobin Sodium Potassium 3.4 L D Chloride 96.5 L Carbon Dioxide 41 H* BUN 27 H Creatinine 0.5 L Glucose 173 H POC Glucose 217 H Lactic Acid Calcium Magnesium Ferritin Total Bilirubin Direct Bilirubin AST ALT Alkaline Phosphatase Lactate Dehydrogenase C-Reactive Protein Total Protein Albumin Triglycerides Lipase Arterial Blood Glucose Arterial Blood Ionized Calcium Urine WBC (Auto) Coronavirus (PCR) SARS-CoV-2 IgG Ab Crossmatch 06/05/20 06/05/20 06/05/20 06:05 11:54 12:35 WBC RBC Hgb Hct MCV MCH MCHC RDW Lymph % (Auto) [place] % (Auto) Lymph # (Auto) [place] # (Auto) Baso # (Auto) Seg Neutrophils % Seg Neuts % (Manual) Lymphocytes % (Manual) Nucleated RBC % Seg Neutrophils # Seg Neutrophils # Man Lymphocytes # (Manual) Monocytes # (Manual) Eosinophils # (Manual) PT INR APTT D-Dimer Heparin Anti-Xa Level ABG pH POC ABG pCO2 POC ABG pO2 ABG pO2 127.9 H ABG HCO3 41.1 H ABG O2 Saturation ABG Base Excess 13.0 H ABG Hemoglobin 13.4 L ABG Oxyhemoglobin ABG Sodium ABG Potassium ABG Chloride ABG Glucose Oxyhemoglobin Carboxyhemoglobin Sodium Potassium Chloride Carbon Dioxide BUN Creatinine Glucose POC Glucose 137 H 211 H Lactic Acid Calcium Magnesium Ferritin Total Bilirubin Direct Bilirubin AST ALT Alkaline Phosphatase Lactate Dehydrogenase C-Reactive Protein Total Protein Albumin Triglycerides Lipase Arterial Blood Glucose Arterial Blood Ionized Calcium Urine WBC (Auto) Coronavirus (PCR) SARS-CoV-2 IgG Ab Crossmatch 06/05/20 06/05/20 06/06/20 17:03 23:49 04:42 WBC RBC Hgb Hct MCV MCH MCHC RDW Lymph % (Auto) [place] % (Auto) Lymph # (Auto) [place] # (Auto) Baso # (Auto) Seg Neutrophils % Seg Neuts % (Manual) Lymphocytes % (Manual) Nucleated RBC % Seg Neutrophils # Seg Neutrophils # Man Lymphocytes # (Manual) Monocytes # (Manual) Eosinophils # (Manual) PT INR APTT D-Dimer Heparin Anti-Xa Level ABG pH POC ABG pCO2 56.1 H POC ABG pO2 52.5 L ABG pO2 ABG HCO3 ABG O2 Saturation ABG Base Excess ABG Hemoglobin 11.7 L ABG Oxyhemoglobin ABG Sodium ABG Potassium 3.3 L ABG Chloride 95.0 L ABG Glucose 156 H Oxyhemoglobin Carboxyhemoglobin Sodium Potassium Chloride Carbon Dioxide BUN Creatinine Glucose POC Glucose 159 H 194 H Lactic Acid Calcium Magnesium Ferritin Total Bilirubin Direct Bilirubin AST ALT Alkaline Phosphatase Lactate Dehydrogenase C-Reactive Protein Total Protein Albumin Triglycerides Lipase Arterial Blood Glucose 156 H Arterial Blood Ionized Calcium Urine WBC (Auto) Coronavirus (PCR) SARS-CoV-2 IgG Ab Crossmatch 06/06/20 06/06/20 06/06/20 05:57 12:06 17:38 WBC RBC Hgb Hct MCV MCH MCHC RDW Lymph % (Auto) [place] % (Auto) Lymph # (Auto) [place] # (Auto) Baso # (Auto) Seg Neutrophils % Seg Neuts % (Manual) Lymphocytes % (Manual) Nucleated RBC % Seg Neutrophils # Seg Neutrophils # Man Lymphocytes # (Manual) Monocytes # (Manual) Eosinophils # (Manual) PT INR APTT D-Dimer Heparin Anti-Xa Level ABG pH POC ABG pCO2 POC ABG pO2 ABG pO2 ABG HCO3 ABG O2 Saturation ABG Base Excess ABG Hemoglobin ABG Oxyhemoglobin ABG Sodium ABG Potassium ABG Chloride ABG Glucose Oxyhemoglobin Carboxyhemoglobin Sodium Potassium Chloride Carbon Dioxide BUN Creatinine Glucose POC Glucose 144 H 230 H 162 H Lactic Acid Calcium Magnesium Ferritin Total Bilirubin Direct Bilirubin AST ALT Alkaline Phosphatase Lactate Dehydrogenase C-Reactive Protein Total Protein Albumin Triglycerides Lipase Arterial Blood Glucose Arterial Blood Ionized Calcium Urine WBC (Auto) Coronavirus (PCR) SARS-CoV-2 IgG Ab Crossmatch 06/06/20 06/07/20 06/07/20 23:50 04:34 06:03 WBC RBC Hgb Hct MCV MCH MCHC RDW Lymph % (Auto) [place] % (Auto) Lymph # (Auto) [place] # (Auto) Baso # (Auto) Seg Neutrophils % Seg Neuts % (Manual) Lymphocytes % (Manual) Nucleated RBC % Seg Neutrophils # Seg Neutrophils # Man Lymphocytes # (Manual) Monocytes # (Manual) Eosinophils # (Manual) PT INR APTT D-Dimer Heparin Anti-Xa Level ABG pH 7.511 H POC ABG pCO2 53.5 H POC ABG pO2 114.5 H ABG pO2 ABG HCO3 ABG O2 Saturation ABG Base Excess ABG Hemoglobin 9.4 L ABG Oxyhemoglobin ABG Sodium 134.5 L ABG Potassium ABG Chloride 94.0 L ABG Glucose 186 H Oxyhemoglobin Carboxyhemoglobin Sodium Potassium Chloride Carbon Dioxide BUN Creatinine Glucose POC Glucose 181 H 155 H Lactic Acid Calcium Magnesium Ferritin Total Bilirubin Direct Bilirubin AST ALT Alkaline Phosphatase Lactate Dehydrogenase C-Reactive Protein Total Protein Albumin Triglycerides Lipase Arterial Blood Glucose 186 H Arterial Blood Ionized Calcium 4.5 L Urine WBC (Auto) Coronavirus (PCR) SARS-CoV-2 IgG Ab Crossmatch 06/07/20 06/07/20 06/07/20 13:41 14:58 14:58 WBC RBC 2.72 L Hgb 9.3 L Hct 27.2 L MCV 100 H MCH 34 H MCHC RDW Lymph % (Auto) [place] % (Auto) Lymph # (Auto) [place] # (Auto) Baso # (Auto) Seg Neutrophils % Seg Neuts % (Manual) Lymphocytes % (Manual) Nucleated RBC % Seg Neutrophils # Seg Neutrophils # Man Lymphocytes # (Manual) Monocytes # (Manual) Eosinophils # (Manual) PT INR APTT D-Dimer Heparin Anti-Xa Level ABG pH POC ABG pCO2 POC ABG pO2 ABG pO2 ABG HCO3 ABG O2 Saturation ABG Base Excess ABG Hemoglobin ABG Oxyhemoglobin ABG Sodium ABG Potassium ABG Chloride ABG Glucose Oxyhemoglobin Carboxyhemoglobin Sodium Potassium Chloride 93.5 L Carbon Dioxide 39 H BUN 22 H Creatinine 0.4 L Glucose 188 H POC Glucose 201 H Lactic Acid Calcium Magnesium Ferritin Total Bilirubin Direct Bilirubin AST 61 H ALT 273 H Alkaline Phosphatase Lactate Dehydrogenase C-Reactive Protein Total Protein 5.9 L Albumin 2.7 L Triglycerides Lipase Arterial Blood Glucose Arterial Blood Ionized Calcium Urine WBC (Auto) Coronavirus (PCR) SARS-CoV-2 IgG Ab Crossmatch 06/07/20 06/08/20 06/08/20 23:18 05:31 12:07 WBC RBC Hgb Hct MCV MCH MCHC RDW Lymph % (Auto) [place] % (Auto) Lymph # (Auto) [place] # (Auto) Baso # (Auto) Seg Neutrophils % Seg Neuts % (Manual) Lymphocytes % (Manual) Nucleated RBC % Seg Neutrophils # Seg Neutrophils # Man Lymphocytes # (Manual) Monocytes # (Manual) Eosinophils # (Manual) PT INR APTT D-Dimer Heparin Anti-Xa Level ABG pH POC ABG pCO2 POC ABG pO2 ABG pO2 ABG HCO3 ABG O2 Saturation ABG Base Excess ABG Hemoglobin ABG Oxyhemoglobin ABG Sodium ABG Potassium ABG Chloride ABG Glucose Oxyhemoglobin Carboxyhemoglobin Sodium Potassium Chloride Carbon Dioxide BUN Creatinine Glucose POC Glucose 214 H 129 H 179 H Lactic Acid Calcium Magnesium Ferritin Total Bilirubin Direct Bilirubin AST ALT Alkaline Phosphatase Lactate Dehydrogenase C-Reactive Protein Total Protein Albumin Triglycerides Lipase Arterial Blood Glucose Arterial Blood Ionized Calcium Urine WBC (Auto) Coronavirus (PCR) SARS-CoV-2 IgG Ab Crossmatch 06/08/20 06/08/20 06/09/20 18:18 23:35 05:42 WBC RBC Hgb Hct MCV MCH MCHC RDW Lymph % (Auto) [place] % (Auto) Lymph # (Auto) [place] # (Auto) Baso # (Auto) Seg Neutrophils % Seg Neuts % (Manual) Lymphocytes % (Manual) Nucleated RBC % Seg Neutrophils # Seg Neutrophils # Man Lymphocytes # (Manual) Monocytes # (Manual) Eosinophils # (Manual) PT INR APTT D-Dimer Heparin Anti-Xa Level ABG pH POC ABG pCO2 POC ABG pO2 ABG pO2 ABG HCO3 ABG O2 Saturation ABG Base Excess ABG Hemoglobin ABG Oxyhemoglobin ABG Sodium ABG Potassium ABG Chloride ABG Glucose Oxyhemoglobin Carboxyhemoglobin Sodium Potassium Chloride Carbon Dioxide BUN Creatinine Glucose POC Glucose 172 H 177 H 137 H Lactic Acid Calcium Magnesium Ferritin Total Bilirubin Direct Bilirubin AST ALT Alkaline Phosphatase Lactate Dehydrogenase C-Reactive Protein Total Protein Albumin Triglycerides Lipase Arterial Blood Glucose Arterial Blood Ionized Calcium Urine WBC (Auto) Coronavirus (PCR) SARS-CoV-2 IgG Ab Crossmatch 06/09/20 06/09/20 06/09/20 06:20 07:55 07:55 WBC 12.4 H RBC 3.26 L Hgb 11.1 L Hct 33.4 L D MCV 102 H MCH 34 H MCHC RDW Lymph % (Auto) [place] % (Auto) Lymph # (Auto) [place] # (Auto) Baso # (Auto) Seg Neutrophils % Seg Neuts % (Manual) Lymphocytes % (Manual) Nucleated RBC % Seg Neutrophils # Seg Neutrophils # Man Lymphocytes # (Manual) Monocytes # (Manual) Eosinophils # (Manual) PT INR APTT D-Dimer Heparin Anti-Xa Level ABG pH 7.466 H POC ABG pCO2 50.7 H POC ABG pO2 53.0 L ABG pO2 ABG HCO3 ABG O2 Saturation ABG Base Excess ABG Hemoglobin ABG Oxyhemoglobin ABG Sodium ABG Potassium 2.9 L ABG Chloride 93.0 L ABG Glucose 138 H Oxyhemoglobin Carboxyhemoglobin Sodium Potassium 3.0 L Chloride 92.3 L Carbon Dioxide 37 H BUN 21 H Creatinine 0.6 L Glucose 120 H POC Glucose Lactic Acid Calcium Magnesium Ferritin Total Bilirubin Direct Bilirubin AST ALT Alkaline Phosphatase Lactate Dehydrogenase C-Reactive Protein Total Protein Albumin Triglycerides Lipase Arterial Blood Glucose 138 H Arterial Blood Ionized Calcium 4.5 L Urine WBC (Auto) Coronavirus (PCR) SARS-CoV-2 IgG Ab Crossmatch 06/09/20 06/09/20 06/10/20 11:22 18:32 04:46 WBC RBC Hgb Hct MCV MCH MCHC RDW Lymph % (Auto) [place] % (Auto) Lymph # (Auto) [place] # (Auto) Baso # (Auto) Seg Neutrophils % Seg Neuts % (Manual) Lymphocytes % (Manual) Nucleated RBC % Seg Neutrophils # Seg Neutrophils # Man Lymphocytes # (Manual) Monocytes # (Manual) Eosinophils # (Manual) PT INR APTT D-Dimer Heparin Anti-Xa Level ABG pH 7.501 H POC ABG pCO2 POC ABG pO2 126.5 H ABG pO2 ABG HCO3 ABG O2 Saturation ABG Base Excess ABG Hemoglobin 10.3 L ABG Oxyhemoglobin ABG Sodium ABG Potassium ABG Chloride ABG Glucose 220 H Oxyhemoglobin Carboxyhemoglobin Sodium Potassium Chloride Carbon Dioxide BUN Creatinine Glucose POC Glucose 117 H 121 H Lactic Acid Calcium Magnesium Ferritin Total Bilirubin Direct Bilirubin AST ALT Alkaline Phosphatase Lactate Dehydrogenase C-Reactive Protein Total Protein Albumin Triglycerides Lipase Arterial Blood Glucose 220 H Arterial Blood Ionized Calcium Urine WBC (Auto) Coronavirus (PCR) SARS-CoV-2 IgG Ab Crossmatch 06/10/20 06/10/20 06/10/20 05:30 09:38 12:03 WBC RBC Hgb Hct MCV MCH MCHC RDW Lymph % (Auto) [place] % (Auto) Lymph # (Auto) [place] # (Auto) Baso # (Auto) Seg Neutrophils % Seg Neuts % (Manual) Lymphocytes % (Manual) Nucleated RBC % Seg Neutrophils # Seg Neutrophils # Man Lymphocytes # (Manual) Monocytes # (Manual) Eosinophils # (Manual) PT INR APTT D-Dimer Heparin Anti-Xa Level ABG pH POC ABG pCO2 POC ABG pO2 ABG pO2 ABG HCO3 ABG O2 Saturation ABG Base Excess ABG Hemoglobin ABG Oxyhemoglobin ABG Sodium ABG Potassium ABG Chloride ABG Glucose Oxyhemoglobin Carboxyhemoglobin Sodium Potassium Chloride Carbon Dioxide BUN Creatinine Glucose POC Glucose 181 H 204 H Lactic Acid Calcium Magnesium Ferritin Total Bilirubin Direct Bilirubin AST ALT Alkaline Phosphatase Lactate Dehydrogenase C-Reactive Protein Total Protein Albumin Triglycerides 738 H Lipase Arterial Blood Glucose Arterial Blood Ionized Calcium Urine WBC (Auto) Coronavirus (PCR) SARS-CoV-2 IgG Ab Crossmatch 06/10/20 06/11/20 06/11/20 17:17 00:04 04:38 WBC RBC Hgb Hct MCV MCH MCHC RDW Lymph % (Auto) [place] % (Auto) Lymph # (Auto) [place] # (Auto) Baso # (Auto) Seg Neutrophils % Seg Neuts % (Manual) Lymphocytes % (Manual) Nucleated RBC % Seg Neutrophils # Seg Neutrophils # Man Lymphocytes # (Manual) Monocytes # (Manual) Eosinophils # (Manual) PT INR APTT D-Dimer Heparin Anti-Xa Level ABG pH 7.479 H POC ABG pCO2 POC ABG pO2 76.7 L ABG pO2 ABG HCO3 ABG O2 Saturation ABG Base Excess ABG Hemoglobin 9.8 L ABG Oxyhemoglobin ABG Sodium 135.8 L ABG Potassium ABG Chloride ABG Glucose 238 H Oxyhemoglobin Carboxyhemoglobin Sodium Potassium Chloride Carbon Dioxide BUN Creatinine Glucose POC Glucose 156 H 178 H Lactic Acid Calcium Magnesium Ferritin Total Bilirubin Direct Bilirubin AST ALT Alkaline Phosphatase Lactate Dehydrogenase C-Reactive Protein Total Protein Albumin Triglycerides Lipase Arterial Blood Glucose 238 H Arterial Blood Ionized Calcium Urine WBC (Auto) Coronavirus (PCR) SARS-CoV-2 IgG Ab Crossmatch 06/11/20 06/11/20 06/11/20 05:21 06:52 11:50 WBC RBC Hgb Hct MCV MCH MCHC RDW Lymph % (Auto) [place] % (Auto) Lymph # (Auto) [place] # (Auto) Baso # (Auto) Seg Neutrophils % Seg Neuts % (Manual) Lymphocytes % (Manual) Nucleated RBC % Seg Neutrophils # Seg Neutrophils # Man Lymphocytes # (Manual) Monocytes # (Manual) Eosinophils # (Manual) PT INR APTT D-Dimer Heparin Anti-Xa Level ABG pH POC ABG pCO2 POC ABG pO2 ABG pO2 ABG HCO3 ABG O2 Saturation ABG Base Excess ABG Hemoglobin ABG Oxyhemoglobin ABG Sodium ABG Potassium ABG Chloride ABG Glucose Oxyhemoglobin Carboxyhemoglobin Sodium Potassium Chloride Carbon Dioxide BUN Creatinine Glucose POC Glucose 215 H 187 H Lactic Acid Calcium Magnesium Ferritin Total Bilirubin Direct Bilirubin AST ALT Alkaline Phosphatase Lactate Dehydrogenase C-Reactive Protein Total Protein Albumin Triglycerides 331 H Lipase Arterial Blood Glucose Arterial Blood Ionized Calcium Urine WBC (Auto) Coronavirus (PCR) SARS-CoV-2 IgG Ab Crossmatch 06/11/20 06/11/20 06/12/20 17:49 23:35 04:52 WBC RBC Hgb Hct MCV MCH MCHC RDW Lymph % (Auto) [place] % (Auto) Lymph # (Auto) [place] # (Auto) Baso # (Auto) Seg Neutrophils % Seg Neuts % (Manual) Lymphocytes % (Manual) Nucleated RBC % Seg Neutrophils # Seg Neutrophils # Man Lymphocytes # (Manual) Monocytes # (Manual) Eosinophils # (Manual) PT INR APTT D-Dimer Heparin Anti-Xa Level ABG pH 7.486 H POC ABG pCO2 POC ABG pO2 ABG pO2 ABG HCO3 ABG O2 Saturation ABG Base Excess ABG Hemoglobin 9.4 L ABG Oxyhemoglobin ABG Sodium ABG Potassium 3.2 L ABG Chloride ABG Glucose 209 H Oxyhemoglobin Carboxyhemoglobin Sodium Potassium Chloride Carbon Dioxide BUN Creatinine Glucose POC Glucose 211 H 200 H Lactic Acid Calcium Magnesium Ferritin Total Bilirubin Direct Bilirubin AST ALT Alkaline Phosphatase Lactate Dehydrogenase C-Reactive Protein Total Protein Albumin Triglycerides Lipase Arterial Blood Glucose 209 H Arterial Blood Ionized Calcium Urine WBC (Auto) Coronavirus (PCR) SARS-CoV-2 IgG Ab Crossmatch 06/12/20 06/12/20 06/12/20 05:13 11:47 18:33 WBC RBC Hgb Hct MCV MCH MCHC RDW Lymph % (Auto) [place] % (Auto) Lymph # (Auto) [place] # (Auto) Baso # (Auto) Seg Neutrophils % Seg Neuts % (Manual) Lymphocytes % (Manual) Nucleated RBC % Seg Neutrophils # Seg Neutrophils # Man Lymphocytes # (Manual) Monocytes # (Manual) Eosinophils # (Manual) PT INR APTT D-Dimer Heparin Anti-Xa Level ABG pH POC ABG pCO2 POC ABG pO2 ABG pO2 ABG HCO3 ABG O2 Saturation ABG Base Excess ABG Hemoglobin ABG Oxyhemoglobin ABG Sodium ABG Potassium ABG Chloride ABG Glucose Oxyhemoglobin Carboxyhemoglobin Sodium Potassium Chloride Carbon Dioxide BUN Creatinine Glucose POC Glucose 174 H 214 H 194 H Lactic Acid Calcium Magnesium Ferritin Total Bilirubin Direct Bilirubin AST ALT Alkaline Phosphatase Lactate Dehydrogenase C-Reactive Protein Total Protein Albumin Triglycerides Lipase Arterial Blood Glucose Arterial Blood Ionized Calcium Urine WBC (Auto) Coronavirus (PCR) SARS-CoV-2 IgG Ab Crossmatch 06/12/20 06/13/20 06/13/20 23:49 05:41 12:30 WBC RBC Hgb Hct MCV MCH MCHC RDW Lymph % (Auto) [place] % (Auto) Lymph # (Auto) [place] # (Auto) Baso # (Auto) Seg Neutrophils % Seg Neuts % (Manual) Lymphocytes % (Manual) Nucleated RBC % Seg Neutrophils # Seg Neutrophils # Man Lymphocytes # (Manual) Monocytes # (Manual) Eosinophils # (Manual) PT INR APTT D-Dimer Heparin Anti-Xa Level ABG pH POC ABG pCO2 POC ABG pO2 ABG pO2 ABG HCO3 ABG O2 Saturation ABG Base Excess ABG Hemoglobin ABG Oxyhemoglobin ABG Sodium ABG Potassium ABG Chloride ABG Glucose Oxyhemoglobin Carboxyhemoglobin Sodium Potassium Chloride Carbon Dioxide BUN Creatinine Glucose POC Glucose 160 H 150 H 181 H Lactic Acid Calcium Magnesium Ferritin Total Bilirubin Direct Bilirubin AST ALT Alkaline Phosphatase Lactate Dehydrogenase C-Reactive Protein Total Protein Albumin Triglycerides Lipase Arterial Blood Glucose Arterial Blood Ionized Calcium Urine WBC (Auto) Coronavirus (PCR) SARS-CoV-2 IgG Ab Crossmatch 06/13/20 06/13/20 06/13/20 14:14 17:48 23:27 WBC 12.8 H RBC 2.33 L Hgb 8.0 L Hct 23.3 L MCV 100 H MCH 34 H MCHC RDW 15.7 H Lymph % (Auto) [place] % (Auto) Lymph # (Auto) [place] # (Auto) Baso # (Auto) Seg Neutrophils % Seg Neuts % (Manual) 85.0 H Lymphocytes % (Manual) 10.0 L Nucleated RBC % Seg Neutrophils # Seg Neutrophils # Man 10.9 H Lymphocytes # (Manual) Monocytes # (Manual) Eosinophils # (Manual) PT INR APTT D-Dimer Heparin Anti-Xa Level ABG pH POC ABG pCO2 POC ABG pO2 ABG pO2 ABG HCO3 ABG O2 Saturation ABG Base Excess ABG Hemoglobin ABG Oxyhemoglobin ABG Sodium ABG Potassium ABG Chloride ABG Glucose Oxyhemoglobin Carboxyhemoglobin Sodium Potassium Chloride Carbon Dioxide BUN Creatinine Glucose POC Glucose 173 H 154 H Lactic Acid Calcium Magnesium Ferritin Total Bilirubin Direct Bilirubin AST ALT Alkaline Phosphatase Lactate Dehydrogenase C-Reactive Protein Total Protein Albumin Triglycerides Lipase Arterial Blood Glucose Arterial Blood Ionized Calcium Urine WBC (Auto) Coronavirus (PCR) SARS-CoV-2 IgG Ab Crossmatch 06/14/20 06/14/20 06/14/20 03:58 05:21 07:15 WBC 26.2 H RBC 2.97 L Hgb 9.7 L Hct 29.9 L D MCV 101 H MCH 33 H MCHC RDW 15.3 H Lymph % (Auto) [place] % (Auto) Lymph # (Auto) [place] # (Auto) Baso # (Auto) Seg Neutrophils % Seg Neuts % (Manual) 79.0 H Lymphocytes % (Manual) 5.0 L Nucleated RBC % 3.0 H Seg Neutrophils # Seg Neutrophils # Man 20.7 H Lymphocytes # (Manual) Monocytes # (Manual) 1.3 H Eosinophils # (Manual) PT INR APTT D-Dimer Heparin Anti-Xa Level ABG pH POC ABG pCO2 51.5 H POC ABG pO2 70.0 L ABG pO2 ABG HCO3 ABG O2 Saturation ABG Base Excess ABG Hemoglobin 10.1 L ABG Oxyhemoglobin ABG Sodium 131.5 L ABG Potassium 3.1 L ABG Chloride 93.0 L ABG Glucose 188 H Oxyhemoglobin Carboxyhemoglobin Sodium Potassium Chloride Carbon Dioxide BUN Creatinine Glucose POC Glucose 147 H Lactic Acid Calcium Magnesium Ferritin Total Bilirubin Direct Bilirubin AST ALT Alkaline Phosphatase Lactate Dehydrogenase C-Reactive Protein Total Protein Albumin Triglycerides Lipase Arterial Blood Glucose 188 H Arterial Blood Ionized Calcium Urine WBC (Auto) Coronavirus (PCR) SARS-CoV-2 IgG Ab Crossmatch 06/14/20 06/14/20 06/14/20 07:15 11:30 11:50 WBC RBC Hgb Hct MCV MCH MCHC RDW Lymph % (Auto) [place] % (Auto) Lymph # (Auto) [place] # (Auto) Baso # (Auto) Seg Neutrophils % Seg Neuts % (Manual) Lymphocytes % (Manual) Nucleated RBC % Seg Neutrophils # Seg Neutrophils # Man Lymphocytes # (Manual) Monocytes # (Manual) Eosinophils # (Manual) PT INR APTT D-Dimer Heparin Anti-Xa Level ABG pH POC ABG pCO2 POC ABG pO2 ABG pO2 ABG HCO3 ABG O2 Saturation ABG Base Excess ABG Hemoglobin ABG Oxyhemoglobin ABG Sodium ABG Potassium ABG Chloride ABG Glucose Oxyhemoglobin Carboxyhemoglobin Sodium 135 L Potassium 3.5 L Chloride 90.4 L Carbon Dioxide 38 H BUN Creatinine 0.5 L Glucose 190 H POC Glucose 176 H Lactic Acid Calcium Magnesium Ferritin 1496.0 H Total Bilirubin Direct Bilirubin AST ALT 81 H Alkaline Phosphatase Lactate Dehydrogenase C-Reactive Protein Total Protein Albumin 2.9 L Triglycerides Lipase Arterial Blood Glucose Arterial Blood Ionized Calcium Urine WBC (Auto) Coronavirus (PCR) SARS-CoV-2 IgG Ab Crossmatch 06/14/20 06/15/20 06/15/20 23:31 04:00 05:00 WBC RBC Hgb Hct MCV MCH MCHC RDW Lymph % (Auto) [place] % (Auto) Lymph # (Auto) [place] # (Auto) Baso # (Auto) Seg Neutrophils % Seg Neuts % (Manual) Lymphocytes % (Manual) Nucleated RBC % Seg Neutrophils # Seg Neutrophils # Man Lymphocytes # (Manual) Monocytes # (Manual) Eosinophils # (Manual) PT INR APTT D-Dimer Heparin Anti-Xa Level ABG pH POC ABG pCO2 POC ABG pO2 ABG pO2 ABG HCO3 ABG O2 Saturation ABG Base Excess ABG Hemoglobin ABG Oxyhemoglobin ABG Sodium ABG Potassium ABG Chloride ABG Glucose Oxyhemoglobin Carboxyhemoglobin Sodium 133 L Potassium Chloride 91.1 L Carbon Dioxide 34 H BUN Creatinine 0.4 L Glucose 159 H POC Glucose 200 H Lactic Acid Calcium Magnesium Ferritin Total Bilirubin 2.00 H Direct Bilirubin AST 47 H ALT 77 H Alkaline Phosphatase Lactate Dehydrogenase C-Reactive Protein Total Protein Albumin 2.6 L Triglycerides 152 H Lipase Arterial Blood Glucose Arterial Blood Ionized Calcium Urine WBC (Auto) Coronavirus (PCR) SARS-CoV-2 IgG Ab Crossmatch 06/15/20 06/15/20 06/15/20 05:35 06:27 11:38 WBC RBC Hgb Hct MCV MCH MCHC RDW Lymph % (Auto) [place] % (Auto) Lymph # (Auto) [place] # (Auto) Baso # (Auto) Seg Neutrophils % Seg Neuts % (Manual) Lymphocytes % (Manual) Nucleated RBC % Seg Neutrophils # Seg Neutrophils # Man Lymphocytes # (Manual) Monocytes # (Manual) Eosinophils # (Manual) PT INR APTT D-Dimer Heparin Anti-Xa Level ABG pH POC ABG pCO2 61.0 H POC ABG pO2 67.9 L ABG pO2 ABG HCO3 ABG O2 Saturation ABG Base Excess ABG Hemoglobin 10.4 L ABG Oxyhemoglobin ABG Sodium 132.7 L ABG Potassium 3.3 L ABG Chloride 92.0 L ABG Glucose 158 H Oxyhemoglobin Carboxyhemoglobin Sodium Potassium Chloride Carbon Dioxide BUN Creatinine Glucose POC Glucose 148 H 197 H Lactic Acid Calcium Magnesium Ferritin Total Bilirubin Direct Bilirubin AST ALT Alkaline Phosphatase Lactate Dehydrogenase C-Reactive Protein Total Protein Albumin Triglycerides Lipase Arterial Blood Glucose 158 H Arterial Blood Ionized Calcium Urine WBC (Auto) Coronavirus (PCR) SARS-CoV-2 IgG Ab Crossmatch 06/15/20 06/15/20 06/16/20 17:29 Unknown 00:01 WBC 20.7 H RBC 2.57 L Hgb 8.9 L Hct 25.8 L MCV 101 H MCH 35 H MCHC 35 H RDW 16.0 H Lymph % (Auto) [place] % (Auto) Lymph # (Auto) [place] # (Auto) Baso # (Auto) Seg Neutrophils % Seg Neuts % (Manual) 83.0 H Lymphocytes % (Manual) 8.0 L Nucleated RBC % Seg Neutrophils # Seg Neutrophils # Man 17.2 H Lymphocytes # (Manual) Monocytes # (Manual) 1.2 H Eosinophils # (Manual) PT INR APTT D-Dimer Heparin Anti-Xa Level ABG pH POC ABG pCO2 POC ABG pO2 ABG pO2 ABG HCO3 ABG O2 Saturation ABG Base Excess ABG Hemoglobin ABG Oxyhemoglobin ABG Sodium ABG Potassium ABG Chloride ABG Glucose Oxyhemoglobin Carboxyhemoglobin Sodium Potassium Chloride Carbon Dioxide BUN Creatinine Glucose POC Glucose 231 H 257 H Lactic Acid Calcium Magnesium Ferritin Total Bilirubin Direct Bilirubin AST ALT Alkaline Phosphatase Lactate Dehydrogenase C-Reactive Protein Total Protein Albumin Triglycerides Lipase Arterial Blood Glucose Arterial Blood Ionized Calcium Urine WBC (Auto) Coronavirus (PCR) SARS-CoV-2 IgG Ab Crossmatch 06/16/20 06/16/20 06/16/20 04:00 04:00 05:22 WBC 13.8 H RBC 2.03 L Hgb 7.6 L Hct 20.7 L MCV 102 H MCH 37 H MCHC 37 H RDW 16.2 H Lymph % (Auto) 4.4 L [place] % (Auto) Lymph # (Auto) 0.6 L [place] # (Auto) Baso # (Auto) Seg Neutrophils % Seg Neuts % (Manual) Lymphocytes % (Manual) Nucleated RBC % Seg Neutrophils # 12.7 H Seg Neutrophils # Man Lymphocytes # (Manual) Monocytes # (Manual) Eosinophils # (Manual) PT INR APTT D-Dimer Heparin Anti-Xa Level ABG pH POC ABG pCO2 POC ABG pO2 ABG pO2 ABG HCO3 ABG O2 Saturation ABG Base Excess ABG Hemoglobin ABG Oxyhemoglobin ABG Sodium ABG Potassium ABG Chloride ABG Glucose Oxyhemoglobin Carboxyhemoglobin Sodium 130 L Potassium Chloride 88.9 L Carbon Dioxide 36 H BUN Creatinine 0.3 L Glucose 276 H POC Glucose 250 H Lactic Acid Calcium Magnesium Ferritin Total Bilirubin Direct Bilirubin AST ALT Alkaline Phosphatase Lactate Dehydrogenase C-Reactive Protein Total Protein Albumin Triglycerides Lipase Arterial Blood Glucose Arterial Blood Ionized Calcium Urine WBC (Auto) Coronavirus (PCR) SARS-CoV-2 IgG Ab Crossmatch 06/16/20 06/16/20 06/17/20 12:44 18:18 00:39 WBC RBC Hgb Hct MCV MCH MCHC RDW Lymph % (Auto) [place] % (Auto) Lymph # (Auto) [place] # (Auto) Baso # (Auto) Seg Neutrophils % Seg Neuts % (Manual) Lymphocytes % (Manual) Nucleated RBC % Seg Neutrophils # Seg Neutrophils # Man Lymphocytes # (Manual) Monocytes # (Manual) Eosinophils # (Manual) PT INR APTT D-Dimer Heparin Anti-Xa Level ABG pH POC ABG pCO2 POC ABG pO2 ABG pO2 ABG HCO3 ABG O2 Saturation ABG Base Excess ABG Hemoglobin ABG Oxyhemoglobin ABG Sodium ABG Potassium ABG Chloride ABG Glucose Oxyhemoglobin Carboxyhemoglobin Sodium Potassium Chloride Carbon Dioxide BUN Creatinine Glucose POC Glucose 279 H 239 H 247 H Lactic Acid Calcium Magnesium Ferritin Total Bilirubin Direct Bilirubin AST ALT Alkaline Phosphatase Lactate Dehydrogenase C-Reactive Protein Total Protein Albumin Triglycerides Lipase Arterial Blood Glucose Arterial Blood Ionized Calcium Urine WBC (Auto) Coronavirus (PCR) SARS-CoV-2 IgG Ab Crossmatch 06/17/20 06/17/20 06/17/20 03:40 04:08 10:54 WBC RBC Hgb Hct MCV MCH MCHC RDW Lymph % (Auto) [place] % (Auto) Lymph # (Auto) [place] # (Auto) Baso # (Auto) Seg Neutrophils % Seg Neuts % (Manual) Lymphocytes % (Manual) Nucleated RBC % Seg Neutrophils # Seg Neutrophils # Man Lymphocytes # (Manual) Monocytes # (Manual) Eosinophils # (Manual) PT INR APTT D-Dimer Heparin Anti-Xa Level ABG pH POC ABG pCO2 65.7 H POC ABG pO2 ABG pO2 ABG HCO3 ABG O2 Saturation ABG Base Excess ABG Hemoglobin 11.9 L ABG Oxyhemoglobin ABG Sodium ABG Potassium ABG Chloride 93.0 L ABG Glucose 244 H Oxyhemoglobin Carboxyhemoglobin Sodium Potassium Chloride Carbon Dioxide BUN Creatinine Glucose POC Glucose 221 H 248 H Lactic Acid Calcium Magnesium Ferritin Total Bilirubin Direct Bilirubin AST ALT Alkaline Phosphatase Lactate Dehydrogenase C-Reactive Protein Total Protein Albumin Triglycerides Lipase Arterial Blood Glucose 244 H Arterial Blood Ionized Calcium Urine WBC (Auto) Coronavirus (PCR) SARS-CoV-2 IgG Ab Crossmatch 06/17/20 06/17/20 06/17/20 17:47 23:11 23:29 WBC RBC Hgb Hct MCV MCH MCHC RDW Lymph % (Auto) [place] % (Auto) Lymph # (Auto) [place] # (Auto) Baso # (Auto) Seg Neutrophils % Seg Neuts % (Manual) Lymphocytes % (Manual) Nucleated RBC % Seg Neutrophils # Seg Neutrophils # Man Lymphocytes # (Manual) Monocytes # (Manual) Eosinophils # (Manual) PT INR APTT D-Dimer Heparin Anti-Xa Level ABG pH POC ABG pCO2 85.2 H POC ABG pO2 48.4 L ABG pO2 ABG HCO3 ABG O2 Saturation ABG Base Excess ABG Hemoglobin 8.0 L ABG Oxyhemoglobin ABG Sodium ABG Potassium ABG Chloride 95.0 L ABG Glucose 292 H Oxyhemoglobin Carboxyhemoglobin Sodium Potassium Chloride Carbon Dioxide BUN Creatinine Glucose POC Glucose 245 H 252 H Lactic Acid Calcium Magnesium Ferritin Total Bilirubin Direct Bilirubin AST ALT Alkaline Phosphatase Lactate Dehydrogenase C-Reactive Protein Total Protein Albumin Triglycerides Lipase Arterial Blood Glucose 292 H Arterial Blood Ionized Calcium Urine WBC (Auto) Coronavirus (PCR) SARS-CoV-2 IgG Ab Crossmatch 06/18/20 06/18/20 06/18/20 03:14 05:34 11:47 WBC RBC Hgb Hct MCV MCH MCHC RDW Lymph % (Auto) [place] % (Auto) Lymph # (Auto) [place] # (Auto) Baso # (Auto) Seg Neutrophils % Seg Neuts % (Manual) Lymphocytes % (Manual) Nucleated RBC % Seg Neutrophils # Seg Neutrophils # Man Lymphocytes # (Manual) Monocytes # (Manual) Eosinophils # (Manual) PT INR APTT D-Dimer Heparin Anti-Xa Level ABG pH POC ABG pCO2 65.4 H POC ABG pO2 160.7 H ABG pO2 ABG HCO3 ABG O2 Saturation ABG Base Excess ABG Hemoglobin 7.8 L ABG Oxyhemoglobin ABG Sodium ABG Potassium ABG Chloride 95.0 L ABG Glucose 251 H Oxyhemoglobin Carboxyhemoglobin Sodium Potassium Chloride Carbon Dioxide BUN Creatinine Glucose POC Glucose 243 H 263 H Lactic Acid Calcium Magnesium Ferritin Total Bilirubin Direct Bilirubin AST ALT Alkaline Phosphatase Lactate Dehydrogenase C-Reactive Protein Total Protein Albumin Triglycerides Lipase Arterial Blood Glucose 251 H Arterial Blood Ionized Calcium Urine WBC (Auto) Coronavirus (PCR) SARS-CoV-2 IgG Ab Crossmatch 06/18/20 06/18/20 06/19/20 17:31 23:33 04:32 WBC RBC Hgb Hct MCV MCH MCHC RDW Lymph % (Auto) [place] % (Auto) Lymph # (Auto) [place] # (Auto) Baso # (Auto) Seg Neutrophils % Seg Neuts % (Manual) Lymphocytes % (Manual) Nucleated RBC % Seg Neutrophils # Seg Neutrophils # Man Lymphocytes # (Manual) Monocytes # (Manual) Eosinophils # (Manual) PT INR APTT D-Dimer Heparin Anti-Xa Level ABG pH POC ABG pCO2 83.1 H POC ABG pO2 65.8 L ABG pO2 ABG HCO3 ABG O2 Saturation ABG Base Excess ABG Hemoglobin 8.9 L ABG Oxyhemoglobin ABG Sodium ABG Potassium ABG Chloride 96.0 L ABG Glucose 297 H Oxyhemoglobin Carboxyhemoglobin Sodium Potassium Chloride Carbon Dioxide BUN Creatinine Glucose POC Glucose 286 H 238 H Lactic Acid Calcium Magnesium Ferritin Total Bilirubin Direct Bilirubin AST ALT Alkaline Phosphatase Lactate Dehydrogenase C-Reactive Protein Total Protein Albumin Triglycerides Lipase Arterial Blood Glucose 297 H Arterial Blood Ionized Calcium Urine WBC (Auto) Coronavirus (PCR) SARS-CoV-2 IgG Ab Crossmatch 06/19/20 06/19/20 06/19/20 05:55 11:20 17:12 WBC RBC Hgb Hct MCV MCH MCHC RDW Lymph % (Auto) [place] % (Auto) Lymph # (Auto) [place] # (Auto) Baso # (Auto) Seg Neutrophils % Seg Neuts % (Manual) Lymphocytes % (Manual) Nucleated RBC % Seg Neutrophils # Seg Neutrophils # Man Lymphocytes # (Manual) Monocytes # (Manual) Eosinophils # (Manual) PT INR APTT D-Dimer Heparin Anti-Xa Level ABG pH POC ABG pCO2 POC ABG pO2 ABG pO2 ABG HCO3 ABG O2 Saturation ABG Base Excess ABG Hemoglobin ABG Oxyhemoglobin ABG Sodium ABG Potassium ABG Chloride ABG Glucose Oxyhemoglobin Carboxyhemoglobin Sodium Potassium Chloride Carbon Dioxide BUN Creatinine Glucose POC Glucose 274 H 282 H 298 H Lactic Acid Calcium Magnesium Ferritin Total Bilirubin Direct Bilirubin AST ALT Alkaline Phosphatase Lactate Dehydrogenase C-Reactive Protein Total Protein Albumin Triglycerides Lipase Arterial Blood Glucose Arterial Blood Ionized Calcium Urine WBC (Auto) Coronavirus (PCR) SARS-CoV-2 IgG Ab Crossmatch 06/19/20 06/20/20 06/20/20 23:08 03:33 06:01 WBC RBC Hgb Hct MCV MCH MCHC RDW Lymph % (Auto) [place] % (Auto) Lymph # (Auto) [place] # (Auto) Baso # (Auto) Seg Neutrophils % Seg Neuts % (Manual) Lymphocytes % (Manual) Nucleated RBC % Seg Neutrophils # Seg Neutrophils # Man Lymphocytes # (Manual) Monocytes # (Manual) Eosinophils # (Manual) PT INR APTT D-Dimer Heparin Anti-Xa Level ABG pH POC ABG pCO2 POC ABG pO2 ABG pO2 69.9 L ABG HCO3 50.8 H ABG O2 Saturation ABG Base Excess 24.2 H ABG Hemoglobin 5.8 L ABG Oxyhemoglobin ABG Sodium ABG Potassium ABG Chloride ABG Glucose Oxyhemoglobin Carboxyhemoglobin Sodium Potassium Chloride Carbon Dioxide BUN Creatinine Glucose POC Glucose 293 H 182 H Lactic Acid Calcium Magnesium Ferritin Total Bilirubin Direct Bilirubin AST ALT Alkaline Phosphatase Lactate Dehydrogenase C-Reactive Protein Total Protein Albumin Triglycerides Lipase Arterial Blood Glucose Arterial Blood Ionized Calcium Urine WBC (Auto) Coronavirus (PCR) SARS-CoV-2 IgG Ab Crossmatch 06/20/20 06/20/20 06/20/20 11:47 17:46 23:37 WBC RBC Hgb Hct MCV MCH MCHC RDW Lymph % (Auto) [place] % (Auto) Lymph # (Auto) [place] # (Auto) Baso # (Auto) Seg Neutrophils % Seg Neuts % (Manual) Lymphocytes % (Manual) Nucleated RBC % Seg Neutrophils # Seg Neutrophils # Man Lymphocytes # (Manual) Monocytes # (Manual) Eosinophils # (Manual) PT INR APTT D-Dimer Heparin Anti-Xa Level ABG pH POC ABG pCO2 POC ABG pO2 ABG pO2 ABG HCO3 ABG O2 Saturation ABG Base Excess ABG Hemoglobin ABG Oxyhemoglobin ABG Sodium ABG Potassium ABG Chloride ABG Glucose Oxyhemoglobin Carboxyhemoglobin Sodium Potassium Chloride Carbon Dioxide BUN Creatinine Glucose POC Glucose 170 H 215 H 256 H Lactic Acid Calcium Magnesium Ferritin Total Bilirubin Direct Bilirubin AST ALT Alkaline Phosphatase Lactate Dehydrogenase C-Reactive Protein Total Protein Albumin Triglycerides Lipase Arterial Blood Glucose Arterial Blood Ionized Calcium Urine WBC (Auto) Coronavirus (PCR) SARS-CoV-2 IgG Ab Crossmatch 06/21/20 06/21/20 06/21/20 04:00 05:14 05:51 WBC RBC Hgb Hct MCV MCH MCHC RDW Lymph % (Auto) [place] % (Auto) Lymph # (Auto) [place] # (Auto) Baso # (Auto) Seg Neutrophils % Seg Neuts % (Manual) Lymphocytes % (Manual) Nucleated RBC % Seg Neutrophils # Seg Neutrophils # Man Lymphocytes # (Manual) Monocytes # (Manual) Eosinophils # (Manual) PT INR APTT D-Dimer Heparin Anti-Xa Level ABG pH 7.474 H POC ABG pCO2 POC ABG pO2 ABG pO2 ABG HCO3 52.1 H ABG O2 Saturation ABG Base Excess 23.3 H ABG Hemoglobin 5.3 L ABG Oxyhemoglobin ABG Sodium ABG Potassium ABG Chloride ABG Glucose Oxyhemoglobin 93.8 L Carboxyhemoglobin Sodium Potassium Chloride Carbon Dioxide BUN Creatinine Glucose POC Glucose 122 H 129 H Lactic Acid Calcium Magnesium Ferritin Total Bilirubin Direct Bilirubin AST ALT Alkaline Phosphatase Lactate Dehydrogenase C-Reactive Protein Total Protein Albumin Triglycerides Lipase Arterial Blood Glucose Arterial Blood Ionized Calcium Urine WBC (Auto) Coronavirus (PCR) SARS-CoV-2 IgG Ab Crossmatch 06/21/20 06/21/20 06/21/20 11:00 11:00 11:42 WBC 14.2 H RBC 1.85 L Hgb 6.2 L Hct 19.5 L* MCV 105 H MCH 34 H MCHC RDW 18.0 H Lymph % (Auto) [place] % (Auto) Lymph # (Auto) [place] # (Auto) Baso # (Auto) Seg Neutrophils % Seg Neuts % (Manual) Lymphocytes % (Manual) Nucleated RBC % Seg Neutrophils # Seg Neutrophils # Man Lymphocytes # (Manual) Monocytes # (Manual) Eosinophils # (Manual) PT INR APTT D-Dimer Heparin Anti-Xa Level ABG pH POC ABG pCO2 POC ABG pO2 ABG pO2 ABG HCO3 ABG O2 Saturation ABG Base Excess ABG Hemoglobin ABG Oxyhemoglobin ABG Sodium ABG Potassium ABG Chloride ABG Glucose Oxyhemoglobin Carboxyhemoglobin Sodium 147 H Potassium Chloride Carbon Dioxide 51 H* BUN 31 H Creatinine 0.5 L Glucose 224 H POC Glucose 217 H Lactic Acid Calcium Magnesium Ferritin Total Bilirubin Direct Bilirubin AST ALT Alkaline Phosphatase Lactate Dehydrogenase C-Reactive Protein Total Protein Albumin Triglycerides Lipase Arterial Blood Glucose Arterial Blood Ionized Calcium Urine WBC (Auto) Coronavirus (PCR) SARS-CoV-2 IgG Ab Crossmatch 06/21/20 06/21/20 06/21/20 14:18 14:30 18:36 WBC RBC Hgb Hct MCV MCH MCHC RDW Lymph % (Auto) [place] % (Auto) Lymph # (Auto) [place] # (Auto) Baso # (Auto) Seg Neutrophils % Seg Neuts % (Manual) Lymphocytes % (Manual) Nucleated RBC % Seg Neutrophils # Seg Neutrophils # Man Lymphocytes # (Manual) Monocytes # (Manual) Eosinophils # (Manual) PT 15.1 H INR 1.19 H APTT D-Dimer Heparin Anti-Xa Level ABG pH POC ABG pCO2 POC ABG pO2 ABG pO2 ABG HCO3 ABG O2 Saturation ABG Base Excess ABG Hemoglobin ABG Oxyhemoglobin ABG Sodium ABG Potassium ABG Chloride ABG Glucose Oxyhemoglobin Carboxyhemoglobin Sodium Potassium Chloride Carbon Dioxide BUN Creatinine Glucose POC Glucose 185 H Lactic Acid Calcium Magnesium Ferritin Total Bilirubin Direct Bilirubin AST ALT Alkaline Phosphatase Lactate Dehydrogenase C-Reactive Protein Total Protein Albumin Triglycerides Lipase Arterial Blood Glucose Arterial Blood Ionized Calcium Urine WBC (Auto) Coronavirus (PCR) SARS-CoV-2 IgG Ab Crossmatch See Detail 06/21/20 06/22/20 06/22/20 21:14 03:50 04:00 WBC RBC Hgb Hct MCV MCH MCHC RDW Lymph % (Auto) [place] % (Auto) Lymph # (Auto) [place] # (Auto) Baso # (Auto) Seg Neutrophils % Seg Neuts % (Manual) Lymphocytes % (Manual) Nucleated RBC % Seg Neutrophils # Seg Neutrophils # Man Lymphocytes # (Manual) Monocytes # (Manual) Eosinophils # (Manual) PT INR APTT D-Dimer Heparin Anti-Xa Level ABG pH 7.451 H POC ABG pCO2 POC ABG pO2 ABG pO2 ABG HCO3 47.5 H ABG O2 Saturation ABG Base Excess 22.0 H ABG Hemoglobin < 5.1 L ABG Oxyhemoglobin ABG Sodium ABG Potassium ABG Chloride ABG Glucose Oxyhemoglobin 94.1 L Carboxyhemoglobin Sodium 149 H Potassium 3.5 L Chloride Carbon Dioxide 42 H* D BUN 34 H Creatinine 0.4 L Glucose 219 H POC Glucose 250 H Lactic Acid Calcium Magnesium Ferritin Total Bilirubin Direct Bilirubin AST ALT Alkaline Phosphatase Lactate Dehydrogenase C-Reactive Protein Total Protein Albumin Triglycerides Lipase Arterial Blood Glucose Arterial Blood Ionized Calcium Urine WBC (Auto) Coronavirus (PCR) SARS-CoV-2 IgG Ab Crossmatch 06/22/20 06/22/20 06/22/20 12:16 14:29 17:56 WBC RBC Hgb Hct MCV MCH MCHC RDW Lymph % (Auto) [place] % (Auto) Lymph # (Auto) [place] # (Auto) Baso # (Auto) Seg Neutrophils % Seg Neuts % (Manual) Lymphocytes % (Manual) Nucleated RBC % Seg Neutrophils # Seg Neutrophils # Man Lymphocytes # (Manual) Monocytes # (Manual) Eosinophils # (Manual) PT 11.8 L INR APTT 23.5 L D-Dimer Heparin Anti-Xa Level ABG pH POC ABG pCO2 POC ABG pO2 ABG pO2 ABG HCO3 ABG O2 Saturation ABG Base Excess ABG Hemoglobin ABG Oxyhemoglobin ABG Sodium ABG Potassium ABG Chloride ABG Glucose Oxyhemoglobin Carboxyhemoglobin Sodium Potassium Chloride Carbon Dioxide BUN Creatinine Glucose POC Glucose 215 H 215 H Lactic Acid Calcium Magnesium Ferritin Total Bilirubin Direct Bilirubin AST ALT Alkaline Phosphatase Lactate Dehydrogenase C-Reactive Protein Total Protein Albumin Triglycerides Lipase Arterial Blood Glucose Arterial Blood Ionized Calcium Urine WBC (Auto) Coronavirus (PCR) SARS-CoV-2 IgG Ab Crossmatch 06/22/20 06/22/20 06/22/20 23:36 23:45 Unknown WBC 14.1 H RBC 2.70 L Hgb 8.9 L 8.9 L Hct 26.9 L 27.2 L D MCV 101 H MCH 33 H MCHC RDW 17.7 H Lymph % (Auto) [place] % (Auto) Lymph # (Auto) [place] # (Auto) Baso # (Auto) Seg Neutrophils % Seg Neuts % (Manual) 92.0 H Lymphocytes % (Manual) 5.0 L Nucleated RBC % Seg Neutrophils # Seg Neutrophils # Man 13.0 H Lymphocytes # (Manual) 0.7 L Monocytes # (Manual) Eosinophils # (Manual) PT INR APTT D-Dimer Heparin Anti-Xa Level ABG pH POC ABG pCO2 POC ABG pO2 ABG pO2 ABG HCO3 ABG O2 Saturation ABG Base Excess ABG Hemoglobin ABG Oxyhemoglobin ABG Sodium ABG Potassium ABG Chloride ABG Glucose Oxyhemoglobin Carboxyhemoglobin Sodium Potassium Chloride Carbon Dioxide BUN Creatinine Glucose POC Glucose 208 H Lactic Acid Calcium Magnesium Ferritin Total Bilirubin Direct Bilirubin AST ALT Alkaline Phosphatase Lactate Dehydrogenase C-Reactive Protein Total Protein Albumin Triglycerides Lipase Arterial Blood Glucose Arterial Blood Ionized Calcium Urine WBC (Auto) Coronavirus (PCR) SARS-CoV-2 IgG Ab Crossmatch 06/23/20 06/23/20 06/23/20 05:17 05:19 06:50 WBC RBC Hgb Hct MCV MCH MCHC RDW Lymph % (Auto) [place] % (Auto) Lymph # (Auto) [place] # (Auto) Baso # (Auto) Seg Neutrophils % Seg Neuts % (Manual) Lymphocytes % (Manual) Nucleated RBC % Seg Neutrophils # Seg Neutrophils # Man Lymphocytes # (Manual) Monocytes # (Manual) Eosinophils # (Manual) PT INR APTT D-Dimer Heparin Anti-Xa Level ABG pH POC ABG pCO2 69.7 H POC ABG pO2 63.3 L ABG pO2 ABG HCO3 ABG O2 Saturation ABG Base Excess ABG Hemoglobin 10.1 L ABG Oxyhemoglobin ABG Sodium ABG Potassium 3.3 L ABG Chloride ABG Glucose 226 H Oxyhemoglobin Carboxyhemoglobin Sodium Potassium 3.0 L Chloride Carbon Dioxide 41 H* BUN 26 H Creatinine 0.4 L Glucose 209 H POC Glucose 200 H Lactic Acid Calcium Magnesium Ferritin Total Bilirubin Direct Bilirubin AST ALT Alkaline Phosphatase Lactate Dehydrogenase C-Reactive Protein Total Protein Albumin 2.9 L Triglycerides Lipase Arterial Blood Glucose 226 H Arterial Blood Ionized Calcium Urine WBC (Auto) Coronavirus (PCR) SARS-CoV-2 IgG Ab Crossmatch 06/23/20 06/23/20 06/23/20 09:41 12:04 18:16 WBC RBC Hgb 9.1 L Hct 28.0 L MCV MCH MCHC RDW Lymph % (Auto) [place] % (Auto) Lymph # (Auto) [place] # (Auto) Baso # (Auto) Seg Neutrophils % Seg Neuts % (Manual) Lymphocytes % (Manual) Nucleated RBC % Seg Neutrophils # Seg Neutrophils # Man Lymphocytes # (Manual) Monocytes # (Manual) Eosinophils # (Manual) PT INR APTT D-Dimer Heparin Anti-Xa Level ABG pH POC ABG pCO2 POC ABG pO2 ABG pO2 ABG HCO3 ABG O2 Saturation ABG Base Excess ABG Hemoglobin ABG Oxyhemoglobin ABG Sodium ABG Potassium ABG Chloride ABG Glucose Oxyhemoglobin Carboxyhemoglobin Sodium Potassium Chloride Carbon Dioxide BUN Creatinine Glucose POC Glucose 146 H 162 H Lactic Acid Calcium Magnesium Ferritin Total Bilirubin Direct Bilirubin AST ALT Alkaline Phosphatase Lactate Dehydrogenase C-Reactive Protein Total Protein Albumin Triglycerides Lipase Arterial Blood Glucose Arterial Blood Ionized Calcium Urine WBC (Auto) Coronavirus (PCR) SARS-CoV-2 IgG Ab Crossmatch 06/23/20 06/23/20 06/24/20 23:24 23:41 02:39 WBC RBC Hgb 8.2 L 8.8 L Hct 24.9 L 26.8 L MCV MCH MCHC RDW Lymph % (Auto) [place] % (Auto) Lymph # (Auto) [place] # (Auto) Baso # (Auto) Seg Neutrophils % Seg Neuts % (Manual) Lymphocytes % (Manual) Nucleated RBC % Seg Neutrophils # Seg Neutrophils # Man Lymphocytes # (Manual) Monocytes # (Manual) Eosinophils # (Manual) PT INR APTT D-Dimer Heparin Anti-Xa Level ABG pH POC ABG pCO2 POC ABG pO2 ABG pO2 ABG HCO3 ABG O2 Saturation ABG Base Excess ABG Hemoglobin ABG Oxyhemoglobin ABG Sodium ABG Potassium ABG Chloride ABG Glucose Oxyhemoglobin Carboxyhemoglobin Sodium Potassium Chloride Carbon Dioxide BUN Creatinine Glucose POC Glucose 248 H Lactic Acid Calcium Magnesium Ferritin Total Bilirubin Direct Bilirubin AST ALT Alkaline Phosphatase Lactate Dehydrogenase C-Reactive Protein Total Protein Albumin Triglycerides Lipase Arterial Blood Glucose Arterial Blood Ionized Calcium Urine WBC (Auto) Coronavirus (PCR) SARS-CoV-2 IgG Ab Crossmatch 06/24/20 06/24/20 06/24/20 02:39 02:45 05:31 WBC RBC Hgb Hct MCV MCH MCHC RDW Lymph % (Auto) [place] % (Auto) Lymph # (Auto) [place] # (Auto) Baso # (Auto) Seg Neutrophils % Seg Neuts % (Manual) Lymphocytes % (Manual) Nucleated RBC % Seg Neutrophils # Seg Neutrophils # Man Lymphocytes # (Manual) Monocytes # (Manual) Eosinophils # (Manual) PT INR APTT D-Dimer Heparin Anti-Xa Level ABG pH POC ABG pCO2 66.9 H POC ABG pO2 109.7 H ABG pO2 ABG HCO3 ABG O2 Saturation ABG Base Excess ABG Hemoglobin 9.7 L ABG Oxyhemoglobin ABG Sodium 135.0 L ABG Potassium ABG Chloride 97.0 L ABG Glucose 277 H Oxyhemoglobin Carboxyhemoglobin Sodium 136 L Potassium Chloride 95.0 L Carbon Dioxide 34 H D BUN 24 H Creatinine 0.3 L Glucose 260 H POC Glucose 164 H Lactic Acid Calcium Magnesium Ferritin Total Bilirubin Direct Bilirubin AST ALT Alkaline Phosphatase Lactate Dehydrogenase C-Reactive Protein Total Protein 5.2 L Albumin 2.6 L Triglycerides Lipase Arterial Blood Glucose 277 H Arterial Blood Ionized Calcium Urine WBC (Auto) Coronavirus (PCR) SARS-CoV-2 IgG Ab Crossmatch 06/24/20 06/24/20 06/24/20 10:00 11:49 17:39 WBC RBC Hgb 8.9 L Hct 26.5 L MCV MCH MCHC RDW Lymph % (Auto) [place] % (Auto) Lymph # (Auto) [place] # (Auto) Baso # (Auto) Seg Neutrophils % Seg Neuts % (Manual) Lymphocytes % (Manual) Nucleated RBC % Seg Neutrophils # Seg Neutrophils # Man Lymphocytes # (Manual) Monocytes # (Manual) Eosinophils # (Manual) PT INR APTT D-Dimer Heparin Anti-Xa Level ABG pH POC ABG pCO2 POC ABG pO2 ABG pO2 ABG HCO3 ABG O2 Saturation ABG Base Excess ABG Hemoglobin ABG Oxyhemoglobin ABG Sodium ABG Potassium ABG Chloride ABG Glucose Oxyhemoglobin Carboxyhemoglobin Sodium Potassium Chloride Carbon Dioxide BUN Creatinine Glucose POC Glucose 198 H 223 H Lactic Acid Calcium Magnesium Ferritin Total Bilirubin Direct Bilirubin AST ALT Alkaline Phosphatase Lactate Dehydrogenase C-Reactive Protein Total Protein Albumin Triglycerides Lipase Arterial Blood Glucose Arterial Blood Ionized Calcium Urine WBC (Auto) Coronavirus (PCR) SARS-CoV-2 IgG Ab Crossmatch 06/24/20 06/25/20 06/25/20 23:56 02:16 04:08 WBC RBC Hgb Hct MCV MCH MCHC RDW Lymph % (Auto) [place] % (Auto) Lymph # (Auto) [place] # (Auto) Baso # (Auto) Seg Neutrophils % Seg Neuts % (Manual) Lymphocytes % (Manual) Nucleated RBC % Seg Neutrophils # Seg Neutrophils # Man Lymphocytes # (Manual) Monocytes # (Manual) Eosinophils # (Manual) PT INR APTT D-Dimer Heparin Anti-Xa Level ABG pH 7.454 H POC ABG pCO2 56.9 H POC ABG pO2 61.0 L ABG pO2 ABG HCO3 ABG O2 Saturation ABG Base Excess ABG Hemoglobin ABG Oxyhemoglobin ABG Sodium 134.3 L ABG Potassium ABG Chloride 92.0 L ABG Glucose 246 H Oxyhemoglobin Carboxyhemoglobin Sodium 134 L Potassium Chloride 89.7 L Carbon Dioxide 36 H BUN Creatinine 0.3 L Glucose 254 H POC Glucose 225 H Lactic Acid Calcium Magnesium Ferritin Total Bilirubin Direct Bilirubin AST ALT Alkaline Phosphatase Lactate Dehydrogenase C-Reactive Protein Total Protein Albumin 2.9 L Triglycerides Lipase Arterial Blood Glucose 246 H Arterial Blood Ionized Calcium Urine WBC (Auto) Coronavirus (PCR) SARS-CoV-2 IgG Ab Crossmatch 06/25/20 06/25/20 06/25/20 05:44 11:35 17:33 WBC RBC Hgb Hct MCV MCH MCHC RDW Lymph % (Auto) [place] % (Auto) Lymph # (Auto) [place] # (Auto) Baso # (Auto) Seg Neutrophils % Seg Neuts % (Manual) Lymphocytes % (Manual) Nucleated RBC % Seg Neutrophils # Seg Neutrophils # Man Lymphocytes # (Manual) Monocytes # (Manual) Eosinophils # (Manual) PT INR APTT D-Dimer Heparin Anti-Xa Level ABG pH POC ABG pCO2 POC ABG pO2 ABG pO2 ABG HCO3 ABG O2 Saturation ABG Base Excess ABG Hemoglobin ABG Oxyhemoglobin ABG Sodium ABG Potassium ABG Chloride ABG Glucose Oxyhemoglobin Carboxyhemoglobin Sodium Potassium Chloride Carbon Dioxide BUN Creatinine Glucose POC Glucose 170 H 175 H 229 H Lactic Acid Calcium Magnesium Ferritin Total Bilirubin Direct Bilirubin AST ALT Alkaline Phosphatase Lactate Dehydrogenase C-Reactive Protein Total Protein Albumin Triglycerides Lipase Arterial Blood Glucose Arterial Blood Ionized Calcium Urine WBC (Auto) Coronavirus (PCR) SARS-CoV-2 IgG Ab Crossmatch 06/25/20 06/26/20 06/26/20 23:55 02:17 02:17 WBC RBC Hgb 10.0 L Hct 30.4 L MCV MCH MCHC RDW Lymph % (Auto) [place] % (Auto) Lymph # (Auto) [place] # (Auto) Baso # (Auto) Seg Neutrophils % Seg Neuts % (Manual) Lymphocytes % (Manual) Nucleated RBC % Seg Neutrophils # Seg Neutrophils # Man Lymphocytes # (Manual) Monocytes # (Manual) Eosinophils # (Manual) PT INR APTT D-Dimer Heparin Anti-Xa Level ABG pH POC ABG pCO2 POC ABG pO2 ABG pO2 ABG HCO3 ABG O2 Saturation ABG Base Excess ABG Hemoglobin ABG Oxyhemoglobin ABG Sodium ABG Potassium ABG Chloride ABG Glucose Oxyhemoglobin Carboxyhemoglobin Sodium 136 L Potassium Chloride 90.1 L Carbon Dioxide 39 H BUN Creatinine 0.2 L Glucose 232 H POC Glucose 192 H Lactic Acid Calcium Magnesium Ferritin Total Bilirubin Direct Bilirubin AST ALT Alkaline Phosphatase Lactate Dehydrogenase C-Reactive Protein Total Protein 6.1 L Albumin 2.9 L Triglycerides Lipase Arterial Blood Glucose Arterial Blood Ionized Calcium Urine WBC (Auto) Coronavirus (PCR) SARS-CoV-2 IgG Ab Crossmatch 06/26/20 06/26/20 06/26/20 04:15 04:49 05:28 WBC RBC Hgb Hct MCV MCH MCHC RDW Lymph % (Auto) [place] % (Auto) Lymph # (Auto) [place] # (Auto) Baso # (Auto) Seg Neutrophils % Seg Neuts % (Manual) Lymphocytes % (Manual) Nucleated RBC % Seg Neutrophils # Seg Neutrophils # Man Lymphocytes # (Manual) Monocytes # (Manual) Eosinophils # (Manual) PT INR APTT D-Dimer Heparin Anti-Xa Level ABG pH 7.453 H POC ABG pCO2 59.6 H POC ABG pO2 ABG pO2 ABG HCO3 ABG O2 Saturation ABG Base Excess ABG Hemoglobin 10.0 L ABG Oxyhemoglobin ABG Sodium 134.2 L ABG Potassium 3.3 L ABG Chloride 92.0 L ABG Glucose 305 H Oxyhemoglobin Carboxyhemoglobin Sodium Potassium Chloride Carbon Dioxide BUN Creatinine Glucose POC Glucose 234 H Lactic Acid Calcium Magnesium Ferritin Total Bilirubin Direct Bilirubin AST ALT Alkaline Phosphatase Lactate Dehydrogenase C-Reactive Protein Total Protein Albumin Triglycerides 203 H Lipase Arterial Blood Glucose 305 H Arterial Blood Ionized Calcium Urine WBC (Auto) Coronavirus (PCR) SARS-CoV-2 IgG Ab Crossmatch 06/26/20 06/26/20 06/26/20 11:58 17:58 21:32 WBC RBC Hgb Hct MCV MCH MCHC RDW Lymph % (Auto) [place] % (Auto) Lymph # (Auto) [place] # (Auto) Baso # (Auto) Seg Neutrophils % Seg Neuts % (Manual) Lymphocytes % (Manual) Nucleated RBC % Seg Neutrophils # Seg Neutrophils # Man Lymphocytes # (Manual) Monocytes # (Manual) Eosinophils # (Manual) PT INR APTT D-Dimer Heparin Anti-Xa Level ABG pH POC ABG pCO2 POC ABG pO2 ABG pO2 ABG HCO3 ABG O2 Saturation ABG Base Excess ABG Hemoglobin ABG Oxyhemoglobin ABG Sodium ABG Potassium ABG Chloride ABG Glucose Oxyhemoglobin Carboxyhemoglobin Sodium Potassium Chloride Carbon Dioxide BUN Creatinine Glucose POC Glucose 198 H 193 H 191 H Lactic Acid Calcium Magnesium Ferritin Total Bilirubin Direct Bilirubin AST ALT Alkaline Phosphatase Lactate Dehydrogenase C-Reactive Protein Total Protein Albumin Triglycerides Lipase Arterial Blood Glucose Arterial Blood Ionized Calcium Urine WBC (Auto) Coronavirus (PCR) SARS-CoV-2 IgG Ab Crossmatch 06/26/20 06/27/20 06/27/20 23:40 04:35 05:32 WBC RBC Hgb Hct MCV MCH MCHC RDW Lymph % (Auto) [place] % (Auto) Lymph # (Auto) [place] # (Auto) Baso # (Auto) Seg Neutrophils % Seg Neuts % (Manual) Lymphocytes % (Manual) Nucleated RBC % Seg Neutrophils # Seg Neutrophils # Man Lymphocytes # (Manual) Monocytes # (Manual) Eosinophils # (Manual) PT INR APTT D-Dimer Heparin Anti-Xa Level ABG pH 7.464 H POC ABG pCO2 60.8 H POC ABG pO2 ABG pO2 ABG HCO3 ABG O2 Saturation ABG Base Excess ABG Hemoglobin 10.1 L ABG Oxyhemoglobin ABG Sodium ABG Potassium 2.9 L ABG Chloride 92.0 L ABG Glucose 298 H Oxyhemoglobin Carboxyhemoglobin Sodium Potassium Chloride Carbon Dioxide BUN Creatinine Glucose POC Glucose 241 H 211 H Lactic Acid Calcium Magnesium Ferritin Total Bilirubin Direct Bilirubin AST ALT Alkaline Phosphatase Lactate Dehydrogenase C-Reactive Protein Total Protein Albumin Triglycerides Lipase Arterial Blood Glucose 298 H Arterial Blood Ionized Calcium Urine WBC (Auto) Coronavirus (PCR) SARS-CoV-2 IgG Ab Crossmatch 06/27/20 06/27/20 06/27/20 12:37 18:08 20:52 WBC RBC Hgb Hct MCV MCH MCHC RDW Lymph % (Auto) [place] % (Auto) Lymph # (Auto) [place] # (Auto) Baso # (Auto) Seg Neutrophils % Seg Neuts % (Manual) Lymphocytes % (Manual) Nucleated RBC % Seg Neutrophils # Seg Neutrophils # Man Lymphocytes # (Manual) Monocytes # (Manual) Eosinophils # (Manual) PT INR APTT D-Dimer Heparin Anti-Xa Level ABG pH POC ABG pCO2 POC ABG pO2 ABG pO2 ABG HCO3 ABG O2 Saturation ABG Base Excess ABG Hemoglobin ABG Oxyhemoglobin ABG Sodium ABG Potassium ABG Chloride ABG Glucose Oxyhemoglobin Carboxyhemoglobin Sodium Potassium Chloride Carbon Dioxide BUN Creatinine Glucose POC Glucose 182 H 197 H 195 H Lactic Acid Calcium Magnesium Ferritin Total Bilirubin Direct Bilirubin AST ALT Alkaline Phosphatase Lactate Dehydrogenase C-Reactive Protein Total Protein Albumin Triglycerides Lipase Arterial Blood Glucose Arterial Blood Ionized Calcium Urine WBC (Auto) Coronavirus (PCR) SARS-CoV-2 IgG Ab Crossmatch 06/27/20 06/28/20 06/28/20 Unknown 04:17 04:50 WBC RBC Hgb Hct MCV MCH MCHC RDW Lymph % (Auto) [place] % (Auto) Lymph # (Auto) [place] # (Auto) Baso # (Auto) Seg Neutrophils % Seg Neuts % (Manual) Lymphocytes % (Manual) Nucleated RBC % Seg Neutrophils # Seg Neutrophils # Man Lymphocytes # (Manual) Monocytes # (Manual) Eosinophils # (Manual) PT INR APTT D-Dimer Heparin Anti-Xa Level ABG pH POC ABG pCO2 58.6 H POC ABG pO2 60.1 L ABG pO2 ABG HCO3 ABG O2 Saturation ABG Base Excess ABG Hemoglobin 10.0 L ABG Oxyhemoglobin ABG Sodium 125.3 L ABG Potassium ABG Chloride 93.0 L ABG Glucose 308 H Oxyhemoglobin Carboxyhemoglobin Sodium Potassium 2.9 L* Chloride 93.4 L Carbon Dioxide 42 H* BUN Creatinine 0.3 L Glucose 211 H POC Glucose 252 H Lactic Acid Calcium 8.1 L Magnesium Ferritin Total Bilirubin Direct Bilirubin AST ALT Alkaline Phosphatase Lactate Dehydrogenase C-Reactive Protein Total Protein 5.1 L Albumin 2.4 L Triglycerides Lipase Arterial Blood Glucose 308 H Arterial Blood Ionized Calcium Urine WBC (Auto) Coronavirus (PCR) SARS-CoV-2 IgG Ab Crossmatch 06/28/20 06/28/20 06/28/20 06:35 06:35 11:36 WBC 18.9 H RBC 2.85 L Hgb 9.5 L Hct 28.4 L MCV 100 H MCH 33 H MCHC RDW 17.3 H Lymph % (Auto) [place] % (Auto) Lymph # (Auto) [place] # (Auto) Baso # (Auto) Seg Neutrophils % 88.6 H Seg Neuts % (Manual) 95.0 H Lymphocytes % (Manual) 1.0 L Nucleated RBC % Seg Neutrophils # 15.9 H Seg Neutrophils # Man 18.0 H Lymphocytes # (Manual) 0.2 L Monocytes # (Manual) Eosinophils # (Manual) PT INR APTT D-Dimer Heparin Anti-Xa Level ABG pH POC ABG pCO2 POC ABG pO2 ABG pO2 ABG HCO3 ABG O2 Saturation ABG Base Excess ABG Hemoglobin ABG Oxyhemoglobin ABG Sodium ABG Potassium ABG Chloride ABG Glucose Oxyhemoglobin Carboxyhemoglobin Sodium Potassium Chloride 94.2 L Carbon Dioxide 38 H BUN Creatinine 0.3 L Glucose 228 H POC Glucose 243 H Lactic Acid Calcium Magnesium Ferritin Total Bilirubin Direct Bilirubin AST ALT Alkaline Phosphatase Lactate Dehydrogenase C-Reactive Protein Total Protein 6.1 L Albumin 2.7 L Triglycerides Lipase Arterial Blood Glucose Arterial Blood Ionized Calcium Urine WBC (Auto) Coronavirus (PCR) SARS-CoV-2 IgG Ab Crossmatch 06/28/20 06/28/20 06/29/20 16:53 21:10 00:06 WBC RBC Hgb Hct MCV MCH MCHC RDW Lymph % (Auto) [place] % (Auto) Lymph # (Auto) [place] # (Auto) Baso # (Auto) Seg Neutrophils % Seg Neuts % (Manual) Lymphocytes % (Manual) Nucleated RBC % Seg Neutrophils # Seg Neutrophils # Man Lymphocytes # (Manual) Monocytes # (Manual) Eosinophils # (Manual) PT INR APTT D-Dimer Heparin Anti-Xa Level ABG pH POC ABG pCO2 POC ABG pO2 ABG pO2 ABG HCO3 ABG O2 Saturation ABG Base Excess ABG Hemoglobin ABG Oxyhemoglobin ABG Sodium ABG Potassium ABG Chloride ABG Glucose Oxyhemoglobin Carboxyhemoglobin Sodium Potassium Chloride Carbon Dioxide BUN Creatinine Glucose POC Glucose 211 H 195 H 200 H Lactic Acid Calcium Magnesium Ferritin Total Bilirubin Direct Bilirubin AST ALT Alkaline Phosphatase Lactate Dehydrogenase C-Reactive Protein Total Protein Albumin Triglycerides Lipase Arterial Blood Glucose Arterial Blood Ionized Calcium Urine WBC (Auto) Coronavirus (PCR) SARS-CoV-2 IgG Ab Crossmatch 06/29/20 06/29/20 06/29/20 03:11 04:00 04:00 WBC 18.8 H RBC 2.82 L Hgb 10.1 L Hct 28.5 L MCV 101 H MCH 36 H MCHC 36 H RDW 17.5 H Lymph % (Auto) 10.7 L [place] % (Auto) Lymph # (Auto) [place] # (Auto) 1.0 H Baso # (Auto) 0.3 H Seg Neutrophils % 82.2 H Seg Neuts % (Manual) Lymphocytes % (Manual) Nucleated RBC % Seg Neutrophils # 15.5 H Seg Neutrophils # Man Lymphocytes # (Manual) Monocytes # (Manual) Eosinophils # (Manual) PT INR APTT D-Dimer Heparin Anti-Xa Level ABG pH POC ABG pCO2 57.5 H POC ABG pO2 69.1 L ABG pO2 ABG HCO3 ABG O2 Saturation ABG Base Excess ABG Hemoglobin 10.2 L ABG Oxyhemoglobin 92.3 L ABG Sodium 130.7 L ABG Potassium 3.2 L ABG Chloride 93.0 L ABG Glucose 228 H Oxyhemoglobin Carboxyhemoglobin Sodium 134 L Potassium 3.3 L Chloride 89.5 L Carbon Dioxide 40 H BUN Creatinine 0.2 L Glucose 190 H POC Glucose Lactic Acid Calcium Magnesium Ferritin Total Bilirubin Direct Bilirubin AST < 5 L ALT < 5 L Alkaline Phosphatase Lactate Dehydrogenase C-Reactive Protein Total Protein 5.9 L Albumin 2.2 L Triglycerides Lipase Arterial Blood Glucose 228 H Arterial Blood Ionized Calcium Urine WBC (Auto) Coronavirus (PCR) SARS-CoV-2 IgG Ab Crossmatch 06/29/20 06/29/20 06/29/20 05:00 05:23 09:36 WBC RBC Hgb Hct MCV MCH MCHC RDW Lymph % (Auto) [place] % (Auto) Lymph # (Auto) [place] # (Auto) Baso # (Auto) Seg Neutrophils % Seg Neuts % (Manual) Lymphocytes % (Manual) Nucleated RBC % Seg Neutrophils # Seg Neutrophils # Man Lymphocytes # (Manual) Monocytes # (Manual) Eosinophils # (Manual) PT INR APTT D-Dimer Heparin Anti-Xa Level ABG pH POC ABG pCO2 POC ABG pO2 ABG pO2 ABG HCO3 ABG O2 Saturation ABG Base Excess ABG Hemoglobin ABG Oxyhemoglobin ABG Sodium ABG Potassium ABG Chloride ABG Glucose Oxyhemoglobin Carboxyhemoglobin Sodium Potassium Chloride Carbon Dioxide BUN Creatinine Glucose POC Glucose 165 H Lactic Acid Calcium Magnesium Ferritin Total Bilirubin Direct Bilirubin AST ALT Alkaline Phosphatase Lactate Dehydrogenase C-Reactive Protein Total Protein Albumin Triglycerides 1544 H 1799 H Lipase Arterial Blood Glucose Arterial Blood Ionized Calcium Urine WBC (Auto) Coronavirus (PCR) SARS-CoV-2 IgG Ab Crossmatch 06/29/20 06/29/20 06/29/20 09:36 12:02 18:00 WBC RBC Hgb Hct MCV MCH MCHC RDW Lymph % (Auto) [place] % (Auto) Lymph # (Auto) [place] # (Auto) Baso # (Auto) Seg Neutrophils % Seg Neuts % (Manual) Lymphocytes % (Manual) Nucleated RBC % Seg Neutrophils # Seg Neutrophils # Man Lymphocytes # (Manual) Monocytes # (Manual) Eosinophils # (Manual) PT INR APTT D-Dimer Heparin Anti-Xa Level ABG pH POC ABG pCO2 POC ABG pO2 ABG pO2 ABG HCO3 ABG O2 Saturation ABG Base Excess ABG Hemoglobin ABG Oxyhemoglobin ABG Sodium ABG Potassium ABG Chloride ABG Glucose Oxyhemoglobin Carboxyhemoglobin Sodium Potassium Chloride Carbon Dioxide BUN Creatinine Glucose POC Glucose 197 H 187 H Lactic Acid Calcium Magnesium Ferritin Total Bilirubin Direct Bilirubin AST ALT Alkaline Phosphatase Lactate Dehydrogenase C-Reactive Protein Total Protein Albumin Triglycerides Lipase 86 H Arterial Blood Glucose Arterial Blood Ionized Calcium Urine WBC (Auto) Coronavirus (PCR) SARS-CoV-2 IgG Ab Crossmatch 06/29/20 06/30/20 06/30/20 23:33 03:46 05:50 WBC RBC Hgb Hct MCV MCH MCHC RDW Lymph % (Auto) [place] % (Auto) Lymph # (Auto) [place] # (Auto) Baso # (Auto) Seg Neutrophils % Seg Neuts % (Manual) Lymphocytes % (Manual) Nucleated RBC % Seg Neutrophils # Seg Neutrophils # Man Lymphocytes # (Manual) Monocytes # (Manual) Eosinophils # (Manual) PT INR APTT D-Dimer Heparin Anti-Xa Level ABG pH 7.466 H POC ABG pCO2 57.3 H POC ABG pO2 66.1 L ABG pO2 ABG HCO3 ABG O2 Saturation ABG Base Excess ABG Hemoglobin 10.2 L ABG Oxyhemoglobin 92.3 L ABG Sodium 134.4 L ABG Potassium 3.2 L ABG Chloride 94.0 L ABG Glucose 178 H Oxyhemoglobin Carboxyhemoglobin Sodium Potassium Chloride Carbon Dioxide BUN Creatinine Glucose POC Glucose 170 H 170 H Lactic Acid Calcium Magnesium Ferritin Total Bilirubin Direct Bilirubin AST ALT Alkaline Phosphatase Lactate Dehydrogenase C-Reactive Protein Total Protein Albumin Triglycerides Lipase Arterial Blood Glucose 178 H Arterial Blood Ionized Calcium Urine WBC (Auto) Coronavirus (PCR) SARS-CoV-2 IgG Ab Crossmatch 06/30/20 06/30/20 06/30/20 07:00 07:00 12:04 WBC 15.6 H RBC 2.91 L Hgb 9.8 L Hct 29.7 L MCV 102 H MCH 34 H MCHC RDW 17.8 H Lymph % (Auto) [place] % (Auto) Lymph # (Auto) [place] # (Auto) Baso # (Auto) Seg Neutrophils % Seg Neuts % (Manual) Lymphocytes % (Manual) 5.0 L Nucleated RBC % Seg Neutrophils # Seg Neutrophils # Man 14.8 H Lymphocytes # (Manual) 0.8 L Monocytes # (Manual) Eosinophils # (Manual) PT INR APTT D-Dimer Heparin Anti-Xa Level ABG pH POC ABG pCO2 POC ABG pO2 ABG pO2 ABG HCO3 ABG O2 Saturation ABG Base Excess ABG Hemoglobin ABG Oxyhemoglobin ABG Sodium ABG Potassium ABG Chloride ABG Glucose Oxyhemoglobin Carboxyhemoglobin Sodium Potassium Chloride 93.3 L Carbon Dioxide 43 H* BUN Creatinine 0.3 L Glucose 260 H POC Glucose 245 H Lactic Acid Calcium Magnesium Ferritin Total Bilirubin Direct Bilirubin AST ALT Alkaline Phosphatase Lactate Dehydrogenase C-Reactive Protein Total Protein Albumin 2.8 L Triglycerides 452 H Lipase Arterial Blood Glucose Arterial Blood Ionized Calcium Urine WBC (Auto) Coronavirus (PCR) SARS-CoV-2 IgG Ab Crossmatch 06/30/20 07/01/20 07/01/20 17:32 00:02 05:02 WBC RBC Hgb Hct MCV MCH MCHC RDW Lymph % (Auto) [place] % (Auto) Lymph # (Auto) [place] # (Auto) Baso # (Auto) Seg Neutrophils % Seg Neuts % (Manual) Lymphocytes % (Manual) Nucleated RBC % Seg Neutrophils # Seg Neutrophils # Man Lymphocytes # (Manual) Monocytes # (Manual) Eosinophils # (Manual) PT INR APTT D-Dimer Heparin Anti-Xa Level ABG pH POC ABG pCO2 58.1 H POC ABG pO2 ABG pO2 ABG HCO3 ABG O2 Saturation ABG Base Excess ABG Hemoglobin 11.2 L ABG Oxyhemoglobin ABG Sodium 132.7 L ABG Potassium ABG Chloride 92.0 L ABG Glucose 238 H Oxyhemoglobin Carboxyhemoglobin Sodium Potassium Chloride Carbon Dioxide BUN Creatinine Glucose POC Glucose 209 H 208 H Lactic Acid Calcium Magnesium Ferritin Total Bilirubin Direct Bilirubin AST ALT Alkaline Phosphatase Lactate Dehydrogenase C-Reactive Protein Total Protein Albumin Triglycerides Lipase Arterial Blood Glucose 238 H Arterial Blood Ionized Calcium Urine WBC (Auto) Coronavirus (PCR) SARS-CoV-2 IgG Ab Crossmatch 07/01/20 07/01/20 07/01/20 06:16 06:41 06:41 WBC 18.1 H RBC 2.33 L Hgb 7.1 L Hct 21.3 L D MCV MCH MCHC RDW Lymph % (Auto) [place] % (Auto) Lymph # (Auto) [place] # (Auto) Baso # (Auto) Seg Neutrophils % Seg Neuts % (Manual) 82.0 H Lymphocytes % (Manual) 7.0 L Nucleated RBC % 1.0 H Seg Neutrophils # Seg Neutrophils # Man 14.8 H Lymphocytes # (Manual) Monocytes # (Manual) 1.1 H Eosinophils # (Manual) 0.5 H PT INR APTT D-Dimer Heparin Anti-Xa Level < 0.10 L ABG pH POC ABG pCO2 POC ABG pO2 ABG pO2 ABG HCO3 ABG O2 Saturation ABG Base Excess ABG Hemoglobin ABG Oxyhemoglobin ABG Sodium ABG Potassium ABG Chloride ABG Glucose Oxyhemoglobin Carboxyhemoglobin Sodium Potassium Chloride Carbon Dioxide BUN Creatinine Glucose POC Glucose 180 H Lactic Acid Calcium Magnesium Ferritin Total Bilirubin Direct Bilirubin AST ALT Alkaline Phosphatase Lactate Dehydrogenase C-Reactive Protein Total Protein Albumin Triglycerides Lipase Arterial Blood Glucose Arterial Blood Ionized Calcium Urine WBC (Auto) Coronavirus (PCR) SARS-CoV-2 IgG Ab Crossmatch 07/01/20 07/01/20 07/01/20 08:11 12:04 16:16 WBC RBC Hgb Hct MCV MCH MCHC RDW Lymph % (Auto) [place] % (Auto) Lymph # (Auto) [place] # (Auto) Baso # (Auto) Seg Neutrophils % Seg Neuts % (Manual) Lymphocytes % (Manual) Nucleated RBC % Seg Neutrophils # Seg Neutrophils # Man Lymphocytes # (Manual) Monocytes # (Manual) Eosinophils # (Manual) PT INR APTT D-Dimer Heparin Anti-Xa Level 1.02 H ABG pH POC ABG pCO2 POC ABG pO2 ABG pO2 ABG HCO3 ABG O2 Saturation ABG Base Excess ABG Hemoglobin ABG Oxyhemoglobin ABG Sodium ABG Potassium ABG Chloride ABG Glucose Oxyhemoglobin Carboxyhemoglobin Sodium 135 L Potassium 3.0 L Chloride 93.1 L Carbon Dioxide 40 H BUN Creatinine 0.3 L Glucose 140 H POC Glucose 223 H Lactic Acid Calcium Magnesium Ferritin Total Bilirubin Direct Bilirubin AST ALT Alkaline Phosphatase Lactate Dehydrogenase C-Reactive Protein Total Protein Albumin Triglycerides Lipase Arterial Blood Glucose Arterial Blood Ionized Calcium Urine WBC (Auto) Coronavirus (PCR) SARS-CoV-2 IgG Ab Crossmatch 07/01/20 07/01/20 07/02/20 17:09 23:19 00:56 WBC RBC Hgb Hct MCV MCH MCHC RDW Lymph % (Auto) [place] % (Auto) Lymph # (Auto) [place] # (Auto) Baso # (Auto) Seg Neutrophils % Seg Neuts % (Manual) Lymphocytes % (Manual) Nucleated RBC % Seg Neutrophils # Seg Neutrophils # Man Lymphocytes # (Manual) Monocytes # (Manual) Eosinophils # (Manual) PT INR APTT D-Dimer Heparin Anti-Xa Level 0.22 L ABG pH POC ABG pCO2 POC ABG pO2 ABG pO2 ABG HCO3 ABG O2 Saturation ABG Base Excess ABG Hemoglobin ABG Oxyhemoglobin ABG Sodium ABG Potassium ABG Chloride ABG Glucose Oxyhemoglobin Carboxyhemoglobin Sodium Potassium Chloride Carbon Dioxide BUN Creatinine Glucose POC Glucose 233 H 255 H Lactic Acid Calcium Magnesium Ferritin Total Bilirubin Direct Bilirubin AST ALT Alkaline Phosphatase Lactate Dehydrogenase C-Reactive Protein Total Protein Albumin Triglycerides Lipase Arterial Blood Glucose Arterial Blood Ionized Calcium Urine WBC (Auto) Coronavirus (PCR) SARS-CoV-2 IgG Ab Crossmatch 07/02/20 07/02/20 07/02/20 03:51 05:35 11:39 WBC RBC Hgb Hct MCV MCH MCHC RDW Lymph % (Auto) [place] % (Auto) Lymph # (Auto) [place] # (Auto) Baso # (Auto) Seg Neutrophils % Seg Neuts % (Manual) Lymphocytes % (Manual) Nucleated RBC % Seg Neutrophils # Seg Neutrophils # Man Lymphocytes # (Manual) Monocytes # (Manual) Eosinophils # (Manual) PT INR APTT D-Dimer Heparin Anti-Xa Level ABG pH POC ABG pCO2 54.9 H POC ABG pO2 52.1 L ABG pO2 ABG HCO3 ABG O2 Saturation ABG Base Excess ABG Hemoglobin 11.9 L ABG Oxyhemoglobin 82.8 L ABG Sodium 130.2 L ABG Potassium ABG Chloride 92.0 L ABG Glucose 249 H Oxyhemoglobin Carboxyhemoglobin 1.9 H Sodium Potassium Chloride Carbon Dioxide BUN Creatinine Glucose POC Glucose 205 H 235 H Lactic Acid Calcium Magnesium Ferritin Total Bilirubin Direct Bilirubin AST ALT Alkaline Phosphatase Lactate Dehydrogenase C-Reactive Protein Total Protein Albumin Triglycerides Lipase Arterial Blood Glucose 249 H Arterial Blood Ionized Calcium Urine WBC (Auto) Coronavirus (PCR) SARS-CoV-2 IgG Ab Crossmatch 07/02/20 07/02/20 07/02/20 16:08 16:08 17:54 WBC 19.8 H RBC 3.28 L Hgb 10.7 L D Hct 32.7 L D MCV 100 H MCH 33 H MCHC RDW 17.2 H Lymph % (Auto) [place] % (Auto) Lymph # (Auto) [place] # (Auto) Baso # (Auto) Seg Neutrophils % Seg Neuts % (Manual) Lymphocytes % (Manual) Nucleated RBC % Seg Neutrophils # Seg Neutrophils # Man Lymphocytes # (Manual) Monocytes # (Manual) Eosinophils # (Manual) PT INR APTT D-Dimer Heparin Anti-Xa Level ABG pH POC ABG pCO2 POC ABG pO2 ABG pO2 ABG HCO3 ABG O2 Saturation ABG Base Excess ABG Hemoglobin ABG Oxyhemoglobin ABG Sodium ABG Potassium ABG Chloride ABG Glucose Oxyhemoglobin Carboxyhemoglobin Sodium 136 L Potassium Chloride 92.4 L Carbon Dioxide 35 H BUN Creatinine 0.3 L Glucose 203 H POC Glucose 175 H Lactic Acid Calcium Magnesium Ferritin Total Bilirubin Direct Bilirubin AST ALT Alkaline Phosphatase Lactate Dehydrogenase C-Reactive Protein Total Protein Albumin Triglycerides Lipase Arterial Blood Glucose Arterial Blood Ionized Calcium Urine WBC (Auto) Coronavirus (PCR) SARS-CoV-2 IgG Ab Crossmatch 07/02/20 07/03/20 07/03/20 23:46 03:25 05:54 WBC RBC Hgb Hct MCV MCH MCHC RDW Lymph % (Auto) [place] % (Auto) Lymph # (Auto) [place] # (Auto) Baso # (Auto) Seg Neutrophils % Seg Neuts % (Manual) Lymphocytes % (Manual) Nucleated RBC % Seg Neutrophils # Seg Neutrophils # Man Lymphocytes # (Manual) Monocytes # (Manual) Eosinophils # (Manual) PT INR APTT D-Dimer Heparin Anti-Xa Level ABG pH 7.468 H POC ABG pCO2 51.5 H POC ABG pO2 ABG pO2 ABG HCO3 ABG O2 Saturation ABG Base Excess ABG Hemoglobin ABG Oxyhemoglobin ABG Sodium 130.2 L ABG Potassium ABG Chloride 91.0 L ABG Glucose 210 H Oxyhemoglobin Carboxyhemoglobin 1.6 H Sodium Potassium Chloride Carbon Dioxide BUN Creatinine Glucose POC Glucose 173 H 125 H Lactic Acid Calcium Magnesium Ferritin Total Bilirubin Direct Bilirubin AST ALT Alkaline Phosphatase Lactate Dehydrogenase C-Reactive Protein Total Protein Albumin Triglycerides Lipase Arterial Blood Glucose 210 H Arterial Blood Ionized Calcium Urine WBC (Auto) Coronavirus (PCR) SARS-CoV-2 IgG Ab Crossmatch 07/03/20 07/03/20 07/03/20 11:43 12:20 12:20 WBC 16.5 H RBC 3.13 L Hgb 10.4 L Hct 31.8 L MCV 102 H MCH 33 H MCHC RDW 17.2 H Lymph % (Auto) [place] % (Auto) Lymph # (Auto) [place] # (Auto) Baso # (Auto) Seg Neutrophils % Seg Neuts % (Manual) Lymphocytes % (Manual) Nucleated RBC % Seg Neutrophils # Seg Neutrophils # Man Lymphocytes # (Manual) Monocytes # (Manual) Eosinophils # (Manual) PT INR APTT D-Dimer Heparin Anti-Xa Level ABG pH POC ABG pCO2 POC ABG pO2 ABG pO2 ABG HCO3 ABG O2 Saturation ABG Base Excess ABG Hemoglobin ABG Oxyhemoglobin ABG Sodium ABG Potassium ABG Chloride ABG Glucose Oxyhemoglobin Carboxyhemoglobin Sodium 132 L Potassium Chloride 88.5 L Carbon Dioxide 37 H BUN Creatinine 0.3 L Glucose 230 H POC Glucose 223 H Lactic Acid Calcium Magnesium Ferritin Total Bilirubin Direct Bilirubin AST ALT Alkaline Phosphatase Lactate Dehydrogenase C-Reactive Protein Total Protein Albumin Triglycerides Lipase Arterial Blood Glucose Arterial Blood Ionized Calcium Urine WBC (Auto) Coronavirus (PCR) SARS-CoV-2 IgG Ab Crossmatch 07/03/20 07/03/20 07/04/20 17:24 21:41 00:54 WBC RBC Hgb Hct MCV MCH MCHC RDW Lymph % (Auto) [place] % (Auto) Lymph # (Auto) [place] # (Auto) Baso # (Auto) Seg Neutrophils % Seg Neuts % (Manual) Lymphocytes % (Manual) Nucleated RBC % Seg Neutrophils # Seg Neutrophils # Man Lymphocytes # (Manual) Monocytes # (Manual) Eosinophils # (Manual) PT INR APTT D-Dimer Heparin Anti-Xa Level ABG pH POC ABG pCO2 POC ABG pO2 ABG pO2 ABG HCO3 ABG O2 Saturation ABG Base Excess ABG Hemoglobin ABG Oxyhemoglobin ABG Sodium ABG Potassium ABG Chloride ABG Glucose Oxyhemoglobin Carboxyhemoglobin Sodium Potassium Chloride Carbon Dioxide BUN Creatinine Glucose POC Glucose 163 H 220 H 195 H Lactic Acid Calcium Magnesium Ferritin Total Bilirubin Direct Bilirubin AST ALT Alkaline Phosphatase Lactate Dehydrogenase C-Reactive Protein Total Protein Albumin Triglycerides Lipase Arterial Blood Glucose Arterial Blood Ionized Calcium Urine WBC (Auto) Coronavirus (PCR) SARS-CoV-2 IgG Ab Crossmatch 07/04/20 07/04/20 07/04/20 03:25 04:00 04:00 WBC 14.9 H RBC 2.91 L Hgb 9.5 L Hct 29.2 L MCV 100 H MCH 33 H MCHC RDW 16.7 H Lymph % (Auto) 8.4 L [place] % (Auto) Lymph # (Auto) [place] # (Auto) 1.1 H Baso # (Auto) Seg Neutrophils % 84.2 H Seg Neuts % (Manual) Lymphocytes % (Manual) Nucleated RBC % Seg Neutrophils # 12.6 H Seg Neutrophils # Man Lymphocytes # (Manual) Monocytes # (Manual) Eosinophils # (Manual) PT INR APTT D-Dimer Heparin Anti-Xa Level ABG pH 7.474 H POC ABG pCO2 POC ABG pO2 51.8 L ABG pO2 ABG HCO3 ABG O2 Saturation ABG Base Excess ABG Hemoglobin ABG Oxyhemoglobin ABG Sodium ABG Potassium ABG Chloride ABG Glucose Oxyhemoglobin Carboxyhemoglobin Sodium Potassium 3.4 L Chloride 92.1 L Carbon Dioxide 34 H BUN Creatinine 0.3 L Glucose 173 H POC Glucose Lactic Acid Calcium Magnesium Ferritin Total Bilirubin Direct Bilirubin AST ALT Alkaline Phosphatase Lactate Dehydrogenase C-Reactive Protein Total Protein Albumin Triglycerides Lipase Arterial Blood Glucose Arterial Blood Ionized Calcium Urine WBC (Auto) Coronavirus (PCR) SARS-CoV-2 IgG Ab Crossmatch 07/04/20 07/04/20 07/04/20 06:18 11:39 17:18 WBC RBC Hgb Hct MCV MCH MCHC RDW Lymph % (Auto) [place] % (Auto) Lymph # (Auto) [place] # (Auto) Baso # (Auto) Seg Neutrophils % Seg Neuts % (Manual) Lymphocytes % (Manual) Nucleated RBC % Seg Neutrophils # Seg Neutrophils # Man Lymphocytes # (Manual) Monocytes # (Manual) Eosinophils # (Manual) PT INR APTT D-Dimer Heparin Anti-Xa Level ABG pH POC ABG pCO2 POC ABG pO2 ABG pO2 ABG HCO3 ABG O2 Saturation ABG Base Excess ABG Hemoglobin ABG Oxyhemoglobin ABG Sodium ABG Potassium ABG Chloride ABG Glucose Oxyhemoglobin Carboxyhemoglobin Sodium Potassium Chloride Carbon Dioxide BUN Creatinine Glucose POC Glucose 158 H 257 H 148 H Lactic Acid Calcium Magnesium Ferritin Total Bilirubin Direct Bilirubin AST ALT Alkaline Phosphatase Lactate Dehydrogenase C-Reactive Protein Total Protein Albumin Triglycerides Lipase Arterial Blood Glucose Arterial Blood Ionized Calcium Urine WBC (Auto) Coronavirus (PCR) SARS-CoV-2 IgG Ab Crossmatch 07/04/20 07/05/20 07/05/20 23:23 03:13 05:18 WBC 13.3 H RBC 2.90 L Hgb 9.8 L Hct 29.3 L MCV 101 H MCH 34 H MCHC RDW 17.0 H Lymph % (Auto) 11.1 L [place] % (Auto) Lymph # (Auto) [place] # (Auto) Baso # (Auto) Seg Neutrophils % 82.3 H Seg Neuts % (Manual) Lymphocytes % (Manual) Nucleated RBC % Seg Neutrophils # 10.9 H Seg Neutrophils # Man Lymphocytes # (Manual) Monocytes # (Manual) Eosinophils # (Manual) PT INR APTT D-Dimer Heparin Anti-Xa Level ABG pH 7.48 H POC ABG pCO2 52.0 H POC ABG pO2 ABG pO2 ABG HCO3 ABG O2 Saturation ABG Base Excess ABG Hemoglobin 10.0 L ABG Oxyhemoglobin ABG Sodium 131.0 L ABG Potassium 3.3 L ABG Chloride 93.0 L ABG Glucose 177 H Oxyhemoglobin Carboxyhemoglobin Sodium Potassium Chloride Carbon Dioxide BUN Creatinine Glucose POC Glucose 227 H Lactic Acid Calcium Magnesium Ferritin Total Bilirubin Direct Bilirubin AST ALT Alkaline Phosphatase Lactate Dehydrogenase C-Reactive Protein Total Protein Albumin Triglycerides Lipase Arterial Blood Glucose 177 H Arterial Blood Ionized Calcium Urine WBC (Auto) Coronavirus (PCR) SARS-CoV-2 IgG Ab Crossmatch 07/05/20 07/05/20 07/05/20 05:18 05:25 05:57 WBC RBC Hgb Hct MCV MCH MCHC RDW Lymph % (Auto) [place] % (Auto) Lymph # (Auto) [place] # (Auto) Baso # (Auto) Seg Neutrophils % Seg Neuts % (Manual) Lymphocytes % (Manual) Nucleated RBC % Seg Neutrophils # Seg Neutrophils # Man Lymphocytes # (Manual) Monocytes # (Manual) Eosinophils # (Manual) PT INR APTT D-Dimer Heparin Anti-Xa Level ABG pH 7.519 H POC ABG pCO2 POC ABG pO2 198.6 H ABG pO2 ABG HCO3 ABG O2 Saturation ABG Base Excess ABG Hemoglobin 10.3 L ABG Oxyhemoglobin 98.7 H ABG Sodium 133.6 L ABG Potassium 3.3 L ABG Chloride 93.0 L ABG Glucose 175 H Oxyhemoglobin Carboxyhemoglobin Sodium Potassium 3.4 L Chloride 92.5 L Carbon Dioxide 36 H BUN Creatinine 0.3 L Glucose 148 H POC Glucose 170 H Lactic Acid Calcium Magnesium Ferritin Total Bilirubin Direct Bilirubin AST ALT Alkaline Phosphatase Lactate Dehydrogenase C-Reactive Protein Total Protein Albumin Triglycerides Lipase Arterial Blood Glucose 175 H Arterial Blood Ionized Calcium Urine WBC (Auto) Coronavirus (PCR) SARS-CoV-2 IgG Ab Crossmatch 07/05/20 07/05/20 07/06/20 11:37 18:39 00:04 WBC RBC Hgb Hct MCV MCH MCHC RDW Lymph % (Auto) [place] % (Auto) Lymph # (Auto) [place] # (Auto) Baso # (Auto) Seg Neutrophils % Seg Neuts % (Manual) Lymphocytes % (Manual) Nucleated RBC % Seg Neutrophils # Seg Neutrophils # Man Lymphocytes # (Manual) Monocytes # (Manual) Eosinophils # (Manual) PT INR APTT D-Dimer Heparin Anti-Xa Level ABG pH POC ABG pCO2 POC ABG pO2 ABG pO2 ABG HCO3 ABG O2 Saturation ABG Base Excess ABG Hemoglobin ABG Oxyhemoglobin ABG Sodium ABG Potassium ABG Chloride ABG Glucose Oxyhemoglobin Carboxyhemoglobin Sodium Potassium Chloride Carbon Dioxide BUN Creatinine Glucose POC Glucose 195 H 200 H 222 H Lactic Acid Calcium Magnesium Ferritin Total Bilirubin Direct Bilirubin AST ALT Alkaline Phosphatase Lactate Dehydrogenase C-Reactive Protein Total Protein Albumin Triglycerides Lipase Arterial Blood Glucose Arterial Blood Ionized Calcium Urine WBC (Auto) Coronavirus (PCR) SARS-CoV-2 IgG Ab Crossmatch 07/06/20 07/06/20 07/06/20 05:25 06:52 06:52 WBC 15.8 H RBC 3.17 L Hgb 10.4 L Hct 31.5 L MCV 99 H MCH 33 H MCHC RDW 17.0 H Lymph % (Auto) [place] % (Auto) Lymph # (Auto) [place] # (Auto) Baso # (Auto) Seg Neutrophils % Seg Neuts % (Manual) Lymphocytes % (Manual) Nucleated RBC % Seg Neutrophils # Seg Neutrophils # Man Lymphocytes # (Manual) Monocytes # (Manual) Eosinophils # (Manual) PT INR APTT D-Dimer Heparin Anti-Xa Level ABG pH POC ABG pCO2 POC ABG pO2 ABG pO2 ABG HCO3 ABG O2 Saturation ABG Base Excess ABG Hemoglobin ABG Oxyhemoglobin ABG Sodium ABG Potassium ABG Chloride ABG Glucose Oxyhemoglobin Carboxyhemoglobin Sodium 135 L Potassium 3.4 L Chloride 91.9 L Carbon Dioxide 38 H BUN Creatinine 0.3 L Glucose 189 H POC Glucose 165 H Lactic Acid Calcium Magnesium Ferritin Total Bilirubin Direct Bilirubin AST ALT Alkaline Phosphatase Lactate Dehydrogenase C-Reactive Protein Total Protein Albumin Triglycerides Lipase Arterial Blood Glucose Arterial Blood Ionized Calcium Urine WBC (Auto) Coronavirus (PCR) SARS-CoV-2 IgG Ab Crossmatch 07/06/20 07/06/20 07/06/20 13:01 18:04 23:08 WBC RBC Hgb Hct MCV MCH MCHC RDW Lymph % (Auto) [place] % (Auto) Lymph # (Auto) [place] # (Auto) Baso # (Auto) Seg Neutrophils % Seg Neuts % (Manual) Lymphocytes % (Manual) Nucleated RBC % Seg Neutrophils # Seg Neutrophils # Man Lymphocytes # (Manual) Monocytes # (Manual) Eosinophils # (Manual) PT INR APTT D-Dimer Heparin Anti-Xa Level ABG pH POC ABG pCO2 POC ABG pO2 ABG pO2 ABG HCO3 ABG O2 Saturation ABG Base Excess ABG Hemoglobin ABG Oxyhemoglobin ABG Sodium ABG Potassium ABG Chloride ABG Glucose Oxyhemoglobin Carboxyhemoglobin Sodium Potassium Chloride Carbon Dioxide BUN Creatinine Glucose POC Glucose 195 H 169 H 173 H Lactic Acid Calcium Magnesium Ferritin Total Bilirubin Direct Bilirubin AST ALT Alkaline Phosphatase Lactate Dehydrogenase C-Reactive Protein Total Protein Albumin Triglycerides Lipase Arterial Blood Glucose Arterial Blood Ionized Calcium Urine WBC (Auto) Coronavirus (PCR) SARS-CoV-2 IgG Ab Crossmatch 07/07/20 07/07/20 07/07/20 05:35 05:35 05:39 WBC 17.6 H RBC 3.16 L Hgb 10.4 L Hct 31.5 L MCV 100 H MCH 33 H MCHC RDW 16.7 H Lymph % (Auto) 11.1 L [place] % (Auto) Lymph # (Auto) [place] # (Auto) 1.0 H Baso # (Auto) Seg Neutrophils % 83.0 H Seg Neuts % (Manual) Lymphocytes % (Manual) Nucleated RBC % Seg Neutrophils # 14.6 H Seg Neutrophils # Man Lymphocytes # (Manual) Monocytes # (Manual) Eosinophils # (Manual) PT INR APTT D-Dimer Heparin Anti-Xa Level ABG pH POC ABG pCO2 POC ABG pO2 ABG pO2 ABG HCO3 ABG O2 Saturation ABG Base Excess ABG Hemoglobin ABG Oxyhemoglobin ABG Sodium ABG Potassium ABG Chloride ABG Glucose Oxyhemoglobin Carboxyhemoglobin Sodium 135 L Potassium 3.4 L Chloride 94.3 L Carbon Dioxide 32 H BUN Creatinine 0.2 L Glucose 240 H POC Glucose 191 H Lactic Acid Calcium Magnesium Ferritin Total Bilirubin Direct Bilirubin AST ALT Alkaline Phosphatase Lactate Dehydrogenase C-Reactive Protein Total Protein Albumin Triglycerides Lipase Arterial Blood Glucose Arterial Blood Ionized Calcium Urine WBC (Auto) Coronavirus (PCR) SARS-CoV-2 IgG Ab Crossmatch 07/07/20 07/07/20 07/07/20 12:08 16:39 23:41 WBC RBC Hgb Hct MCV MCH MCHC RDW Lymph % (Auto) [place] % (Auto) Lymph # (Auto) [place] # (Auto) Baso # (Auto) Seg Neutrophils % Seg Neuts % (Manual) Lymphocytes % (Manual) Nucleated RBC % Seg Neutrophils # Seg Neutrophils # Man Lymphocytes # (Manual) Monocytes # (Manual) Eosinophils # (Manual) PT INR APTT D-Dimer Heparin Anti-Xa Level ABG pH POC ABG pCO2 POC ABG pO2 ABG pO2 ABG HCO3 ABG O2 Saturation ABG Base Excess ABG Hemoglobin ABG Oxyhemoglobin ABG Sodium ABG Potassium ABG Chloride ABG Glucose Oxyhemoglobin Carboxyhemoglobin Sodium Potassium Chloride Carbon Dioxide BUN Creatinine Glucose POC Glucose 248 H 209 H 231 H Lactic Acid Calcium Magnesium Ferritin Total Bilirubin Direct Bilirubin AST ALT Alkaline Phosphatase Lactate Dehydrogenase C-Reactive Protein Total Protein Albumin Triglycerides Lipase Arterial Blood Glucose Arterial Blood Ionized Calcium Urine WBC (Auto) Coronavirus (PCR) SARS-CoV-2 IgG Ab Crossmatch 07/08/20 07/08/20 07/08/20 04:58 04:58 05:38 WBC 21.0 H RBC 2.86 L Hgb 9.2 L Hct 28.6 L MCV 100 H MCH MCHC RDW 16.7 H Lymph % (Auto) [place] % (Auto) Lymph # (Auto) [place] # (Auto) Baso # (Auto) Seg Neutrophils % Seg Neuts % (Manual) 93.0 H Lymphocytes % (Manual) 3.0 L Nucleated RBC % Seg Neutrophils # Seg Neutrophils # Man 19.5 H Lymphocytes # (Manual) 0.6 L Monocytes # (Manual) Eosinophils # (Manual) PT INR APTT D-Dimer Heparin Anti-Xa Level ABG pH POC ABG pCO2 POC ABG pO2 ABG pO2 ABG HCO3 ABG O2 Saturation ABG Base Excess ABG Hemoglobin ABG Oxyhemoglobin ABG Sodium ABG Potassium ABG Chloride ABG Glucose Oxyhemoglobin Carboxyhemoglobin Sodium Potassium 3.0 L Chloride Carbon Dioxide BUN Creatinine 0.2 L Glucose 201 H POC Glucose 161 H Lactic Acid Calcium 7.9 L D Magnesium Ferritin Total Bilirubin Direct Bilirubin AST ALT Alkaline Phosphatase Lactate Dehydrogenase C-Reactive Protein Total Protein Albumin Triglycerides Lipase Arterial Blood Glucose Arterial Blood Ionized Calcium Urine WBC (Auto) Coronavirus (PCR) SARS-CoV-2 IgG Ab Crossmatch 07/08/20 07/08/20 07/08/20 12:19 16:26 Unknown WBC RBC Hgb Hct MCV MCH MCHC RDW Lymph % (Auto) [place] % (Auto) Lymph # (Auto) [place] # (Auto) Baso # (Auto) Seg Neutrophils % Seg Neuts % (Manual) Lymphocytes % (Manual) Nucleated RBC % Seg Neutrophils # Seg Neutrophils # Man Lymphocytes # (Manual) Monocytes # (Manual) Eosinophils # (Manual) PT INR APTT D-Dimer Heparin Anti-Xa Level ABG pH POC ABG pCO2 POC ABG pO2 ABG pO2 75.3 L ABG HCO3 34.3 H ABG O2 Saturation ABG Base Excess 8.7 H ABG Hemoglobin 10.2 L ABG Oxyhemoglobin ABG Sodium ABG Potassium ABG Chloride ABG Glucose Oxyhemoglobin 93.7 L Carboxyhemoglobin Sodium Potassium Chloride Carbon Dioxide BUN Creatinine Glucose POC Glucose 152 H 173 H Lactic Acid Calcium Magnesium Ferritin Total Bilirubin Direct Bilirubin AST ALT Alkaline Phosphatase Lactate Dehydrogenase C-Reactive Protein Total Protein Albumin Triglycerides Lipase Arterial Blood Glucose Arterial Blood Ionized Calcium Urine WBC (Auto) Coronavirus (PCR) SARS-CoV-2 IgG Ab Crossmatch 07/09/20 07/09/20 07/09/20 00:01 06:00 11:55 WBC RBC Hgb Hct MCV MCH MCHC RDW Lymph % (Auto) [place] % (Auto) Lymph # (Auto) [place] # (Auto) Baso # (Auto) Seg Neutrophils % Seg Neuts % (Manual) Lymphocytes % (Manual) Nucleated RBC % Seg Neutrophils # Seg Neutrophils # Man Lymphocytes # (Manual) Monocytes # (Manual) Eosinophils # (Manual) PT INR APTT D-Dimer Heparin Anti-Xa Level ABG pH POC ABG pCO2 POC ABG pO2 ABG pO2 ABG HCO3 ABG O2 Saturation ABG Base Excess ABG Hemoglobin ABG Oxyhemoglobin ABG Sodium ABG Potassium ABG Chloride ABG Glucose Oxyhemoglobin Carboxyhemoglobin Sodium Potassium Chloride Carbon Dioxide BUN Creatinine Glucose POC Glucose 207 H 141 H 228 H Lactic Acid Calcium Magnesium Ferritin Total Bilirubin Direct Bilirubin AST ALT Alkaline Phosphatase Lactate Dehydrogenase C-Reactive Protein Total Protein Albumin Triglycerides Lipase Arterial Blood Glucose Arterial Blood Ionized Calcium Urine WBC (Auto) Coronavirus (PCR) SARS-CoV-2 IgG Ab Crossmatch 07/09/20 07/09/20 07/09/20 16:47 23:53 Unknown WBC RBC Hgb Hct MCV MCH MCHC RDW Lymph % (Auto) [place] % (Auto) Lymph # (Auto) [place] # (Auto) Baso # (Auto) Seg Neutrophils % Seg Neuts % (Manual) Lymphocytes % (Manual) Nucleated RBC % Seg Neutrophils # Seg Neutrophils # Man Lymphocytes # (Manual) Monocytes # (Manual) Eosinophils # (Manual) PT INR APTT D-Dimer Heparin Anti-Xa Level ABG pH POC ABG pCO2 POC ABG pO2 ABG pO2 ABG HCO3 ABG O2 Saturation ABG Base Excess ABG Hemoglobin ABG Oxyhemoglobin ABG Sodium ABG Potassium ABG Chloride ABG Glucose Oxyhemoglobin Carboxyhemoglobin Sodium 132 L Potassium Chloride 92.7 L Carbon Dioxide 35 H BUN Creatinine 0.2 L Glucose 234 H POC Glucose 136 H 219 H Lactic Acid Calcium Magnesium Ferritin Total Bilirubin Direct Bilirubin AST ALT Alkaline Phosphatase Lactate Dehydrogenase C-Reactive Protein Total Protein Albumin Triglycerides Lipase Arterial Blood Glucose Arterial Blood Ionized Calcium Urine WBC (Auto) Coronavirus (PCR) SARS-CoV-2 IgG Ab Crossmatch 07/10/20 07/10/20 07/10/20 05:20 12:05 18:38 WBC RBC Hgb Hct MCV MCH MCHC RDW Lymph % (Auto) [place] % (Auto) Lymph # (Auto) [place] # (Auto) Baso # (Auto) Seg Neutrophils % Seg Neuts % (Manual) Lymphocytes % (Manual) Nucleated RBC % Seg Neutrophils # Seg Neutrophils # Man Lymphocytes # (Manual) Monocytes # (Manual) Eosinophils # (Manual) PT INR APTT D-Dimer Heparin Anti-Xa Level ABG pH POC ABG pCO2 POC ABG pO2 ABG pO2 ABG HCO3 ABG O2 Saturation ABG Base Excess ABG Hemoglobin ABG Oxyhemoglobin ABG Sodium ABG Potassium ABG Chloride ABG Glucose Oxyhemoglobin Carboxyhemoglobin Sodium Potassium Chloride Carbon Dioxide BUN Creatinine Glucose POC Glucose 221 H 174 H 152 H Lactic Acid Calcium Magnesium Ferritin Total Bilirubin Direct Bilirubin AST ALT Alkaline Phosphatase Lactate Dehydrogenase C-Reactive Protein Total Protein Albumin Triglycerides Lipase Arterial Blood Glucose Arterial Blood Ionized Calcium Urine WBC (Auto) Coronavirus (PCR) SARS-CoV-2 IgG Ab Crossmatch 07/11/20 07/11/20 07/11/20 00:16 05:42 08:13 WBC 11.9 H RBC 3.13 L Hgb 10.2 L Hct 31.2 L MCV 100 H MCH 33 H MCHC RDW 16.4 H Lymph % (Auto) [place] % (Auto) 9.3 H Lymph # (Auto) [place] # (Auto) 1.1 H Baso # (Auto) Seg Neutrophils % 72.7 H Seg Neuts % (Manual) Lymphocytes % (Manual) Nucleated RBC % Seg Neutrophils # 8.7 H Seg Neutrophils # Man Lymphocytes # (Manual) Monocytes # (Manual) Eosinophils # (Manual) PT INR APTT D-Dimer Heparin Anti-Xa Level ABG pH POC ABG pCO2 POC ABG pO2 ABG pO2 ABG HCO3 ABG O2 Saturation ABG Base Excess ABG Hemoglobin ABG Oxyhemoglobin ABG Sodium ABG Potassium ABG Chloride ABG Glucose Oxyhemoglobin Carboxyhemoglobin Sodium Potassium Chloride Carbon Dioxide BUN Creatinine Glucose POC Glucose 170 H 186 H Lactic Acid Calcium Magnesium Ferritin Total Bilirubin Direct Bilirubin AST ALT Alkaline Phosphatase Lactate Dehydrogenase C-Reactive Protein Total Protein Albumin Triglycerides Lipase Arterial Blood Glucose Arterial Blood Ionized Calcium Urine WBC (Auto) Coronavirus (PCR) SARS-CoV-2 IgG Ab Crossmatch 07/11/20 07/11/20 07/11/20 08:13 11:35 18:07 WBC RBC Hgb Hct MCV MCH MCHC RDW Lymph % (Auto) [place] % (Auto) Lymph # (Auto) [place] # (Auto) Baso # (Auto) Seg Neutrophils % Seg Neuts % (Manual) Lymphocytes % (Manual) Nucleated RBC % Seg Neutrophils # Seg Neutrophils # Man Lymphocytes # (Manual) Monocytes # (Manual) Eosinophils # (Manual) PT INR APTT D-Dimer Heparin Anti-Xa Level ABG pH POC ABG pCO2 POC ABG pO2 ABG pO2 ABG HCO3 ABG O2 Saturation ABG Base Excess ABG Hemoglobin ABG Oxyhemoglobin ABG Sodium ABG Potassium ABG Chloride ABG Glucose Oxyhemoglobin Carboxyhemoglobin Sodium 135 L Potassium Chloride 92.8 L Carbon Dioxide 38 H BUN Creatinine 0.2 L Glucose 132 H POC Glucose 129 H 156 H Lactic Acid Calcium Magnesium Ferritin Total Bilirubin Direct Bilirubin AST ALT Alkaline Phosphatase Lactate Dehydrogenase C-Reactive Protein Total Protein Albumin Triglycerides Lipase Arterial Blood Glucose Arterial Blood Ionized Calcium Urine WBC (Auto) Coronavirus (PCR) SARS-CoV-2 IgG Ab Crossmatch 07/11/20 07/11/20 07/12/20 18:36 23:18 05:28 WBC RBC Hgb Hct MCV MCH MCHC RDW Lymph % (Auto) [place] % (Auto) Lymph # (Auto) [place] # (Auto) Baso # (Auto) Seg Neutrophils % Seg Neuts % (Manual) Lymphocytes % (Manual) Nucleated RBC % Seg Neutrophils # Seg Neutrophils # Man Lymphocytes # (Manual) Monocytes # (Manual) Eosinophils # (Manual) PT INR APTT D-Dimer Heparin Anti-Xa Level ABG pH POC ABG pCO2 POC ABG pO2 70.9 L ABG pO2 ABG HCO3 ABG O2 Saturation ABG Base Excess ABG Hemoglobin 10.8 L ABG Oxyhemoglobin 92.5 L ABG Sodium 131.8 L ABG Potassium 3.2 L ABG Chloride 91.0 L ABG Glucose 181 H Oxyhemoglobin Carboxyhemoglobin Sodium Potassium Chloride Carbon Dioxide BUN Creatinine Glucose POC Glucose 189 H 190 H Lactic Acid Calcium Magnesium Ferritin Total Bilirubin Direct Bilirubin AST ALT Alkaline Phosphatase Lactate Dehydrogenase C-Reactive Protein Total Protein Albumin Triglycerides Lipase Arterial Blood Glucose 181 H Arterial Blood Ionized Calcium Urine WBC (Auto) Coronavirus (PCR) SARS-CoV-2 IgG Ab Crossmatch 07/12/20 07/12/20 07/12/20 11:33 17:45 23:59 WBC RBC Hgb Hct MCV MCH MCHC RDW Lymph % (Auto) [place] % (Auto) Lymph # (Auto) [place] # (Auto) Baso # (Auto) Seg Neutrophils % Seg Neuts % (Manual) Lymphocytes % (Manual) Nucleated RBC % Seg Neutrophils # Seg Neutrophils # Man Lymphocytes # (Manual) Monocytes # (Manual) Eosinophils # (Manual) PT INR APTT D-Dimer Heparin Anti-Xa Level ABG pH POC ABG pCO2 POC ABG pO2 ABG pO2 ABG HCO3 ABG O2 Saturation ABG Base Excess ABG Hemoglobin ABG Oxyhemoglobin ABG Sodium ABG Potassium ABG Chloride ABG Glucose Oxyhemoglobin Carboxyhemoglobin Sodium Potassium Chloride Carbon Dioxide BUN Creatinine Glucose POC Glucose 151 H 211 H 169 H Lactic Acid Calcium Magnesium Ferritin Total Bilirubin Direct Bilirubin AST ALT Alkaline Phosphatase Lactate Dehydrogenase C-Reactive Protein Total Protein Albumin Triglycerides Lipase Arterial Blood Glucose Arterial Blood Ionized Calcium Urine WBC (Auto) Coronavirus (PCR) SARS-CoV-2 IgG Ab Crossmatch 07/13/20 07/13/20 07/13/20 05:44 08:31 08:31 WBC 21.3 H RBC 2.92 L Hgb 9.7 L Hct 28.7 L MCV 98 H MCH 33 H MCHC RDW 16.8 H Lymph % (Auto) [place] % (Auto) Lymph # (Auto) [place] # (Auto) Baso # (Auto) Seg Neutrophils % Seg Neuts % (Manual) 96.0 H Lymphocytes % (Manual) 2.0 L Nucleated RBC % Seg Neutrophils # Seg Neutrophils # Man 20.4 H Lymphocytes # (Manual) 0.4 L Monocytes # (Manual) Eosinophils # (Manual) PT INR APTT D-Dimer Heparin Anti-Xa Level ABG pH POC ABG pCO2 POC ABG pO2 ABG pO2 ABG HCO3 ABG O2 Saturation ABG Base Excess ABG Hemoglobin ABG Oxyhemoglobin ABG Sodium ABG Potassium ABG Chloride ABG Glucose Oxyhemoglobin Carboxyhemoglobin Sodium Potassium 2.9 L* D Chloride 94.4 L Carbon Dioxide 37 H BUN Creatinine 0.2 L Glucose 166 H POC Glucose 122 H Lactic Acid Calcium Magnesium Ferritin Total Bilirubin Direct Bilirubin AST ALT Alkaline Phosphatase Lactate Dehydrogenase C-Reactive Protein Total Protein Albumin Triglycerides Lipase Arterial Blood Glucose Arterial Blood Ionized Calcium Urine WBC (Auto) Coronavirus (PCR) SARS-CoV-2 IgG Ab Crossmatch 07/13/20 07/13/20 07/13/20 11:54 13:52 17:40 WBC RBC Hgb Hct MCV MCH MCHC RDW Lymph % (Auto) [place] % (Auto) Lymph # (Auto) [place] # (Auto) Baso # (Auto) Seg Neutrophils % Seg Neuts % (Manual) Lymphocytes % (Manual) Nucleated RBC % Seg Neutrophils # Seg Neutrophils # Man Lymphocytes # (Manual) Monocytes # (Manual) Eosinophils # (Manual) PT INR APTT D-Dimer Heparin Anti-Xa Level ABG pH 7.477 H POC ABG pCO2 54.4 H POC ABG pO2 126.8 H ABG pO2 ABG HCO3 ABG O2 Saturation ABG Base Excess ABG Hemoglobin 11.5 L ABG Oxyhemoglobin ABG Sodium ABG Potassium 3.2 L ABG Chloride 92.0 L ABG Glucose 169 H Oxyhemoglobin Carboxyhemoglobin Sodium Potassium Chloride Carbon Dioxide BUN Creatinine Glucose POC Glucose 132 H 128 H Lactic Acid Calcium Magnesium Ferritin Total Bilirubin Direct Bilirubin AST ALT Alkaline Phosphatase Lactate Dehydrogenase C-Reactive Protein Total Protein Albumin Triglycerides Lipase Arterial Blood Glucose 169 H Arterial Blood Ionized Calcium Urine WBC (Auto) Coronavirus (PCR) SARS-CoV-2 IgG Ab Crossmatch 07/14/20 07/14/20 07/15/20 07:49 17:09 05:27 WBC RBC Hgb Hct MCV MCH MCHC RDW Lymph % (Auto) [place] % (Auto) Lymph # (Auto) [place] # (Auto) Baso # (Auto) Seg Neutrophils % Seg Neuts % (Manual) Lymphocytes % (Manual) Nucleated RBC % Seg Neutrophils # Seg Neutrophils # Man Lymphocytes # (Manual) Monocytes # (Manual) Eosinophils # (Manual) PT INR APTT D-Dimer Heparin Anti-Xa Level ABG pH POC ABG pCO2 POC ABG pO2 ABG pO2 ABG HCO3 ABG O2 Saturation ABG Base Excess ABG Hemoglobin ABG Oxyhemoglobin ABG Sodium ABG Potassium ABG Chloride ABG Glucose Oxyhemoglobin Carboxyhemoglobin Sodium Potassium 2.7 L* Chloride 94.0 L Carbon Dioxide 37 H BUN Creatinine 0.3 L Glucose 110 H POC Glucose 152 H 61 L Lactic Acid Calcium Magnesium Ferritin Total Bilirubin Direct Bilirubin AST ALT Alkaline Phosphatase Lactate Dehydrogenase C-Reactive Protein Total Protein Albumin Triglycerides Lipase Arterial Blood Glucose Arterial Blood Ionized Calcium Urine WBC (Auto) Coronavirus (PCR) SARS-CoV-2 IgG Ab Crossmatch 07/15/20 07/15/20 07/15/20 05:31 11:49 17:18 WBC RBC Hgb Hct MCV MCH MCHC RDW Lymph % (Auto) [place] % (Auto) Lymph # (Auto) [place] # (Auto) Baso # (Auto) Seg Neutrophils % Seg Neuts % (Manual) Lymphocytes % (Manual) Nucleated RBC % Seg Neutrophils # Seg Neutrophils # Man Lymphocytes # (Manual) Monocytes # (Manual) Eosinophils # (Manual) PT INR APTT D-Dimer Heparin Anti-Xa Level ABG pH POC ABG pCO2 POC ABG pO2 ABG pO2 ABG HCO3 ABG O2 Saturation ABG Base Excess ABG Hemoglobin ABG Oxyhemoglobin ABG Sodium ABG Potassium ABG Chloride ABG Glucose Oxyhemoglobin Carboxyhemoglobin Sodium Potassium 3.2 L Chloride 91.2 L Carbon Dioxide 33 H BUN Creatinine 0.3 L Glucose 139 H POC Glucose 148 H 196 H Lactic Acid Calcium Magnesium Ferritin Total Bilirubin Direct Bilirubin AST ALT Alkaline Phosphatase Lactate Dehydrogenase C-Reactive Protein Total Protein Albumin Triglycerides Lipase Arterial Blood Glucose Arterial Blood Ionized Calcium Urine WBC (Auto) Coronavirus (PCR) SARS-CoV-2 IgG Ab Crossmatch 07/15/20 07/16/20 07/16/20 23:08 05:18 05:19 WBC 11.3 H RBC 3.10 L Hgb 10.0 L Hct 30.3 L MCV 98 H MCH MCHC RDW 16.3 H Lymph % (Auto) [place] % (Auto) Lymph # (Auto) [place] # (Auto) Baso # (Auto) Seg Neutrophils % Seg Neuts % (Manual) Lymphocytes % (Manual) Nucleated RBC % Seg Neutrophils # Seg Neutrophils # Man Lymphocytes # (Manual) Monocytes # (Manual) Eosinophils # (Manual) PT INR APTT D-Dimer Heparin Anti-Xa Level ABG pH POC ABG pCO2 POC ABG pO2 ABG pO2 ABG HCO3 ABG O2 Saturation ABG Base Excess ABG Hemoglobin ABG Oxyhemoglobin ABG Sodium ABG Potassium ABG Chloride ABG Glucose Oxyhemoglobin Carboxyhemoglobin Sodium Potassium Chloride Carbon Dioxide BUN Creatinine Glucose POC Glucose 131 H 160 H Lactic Acid Calcium Magnesium Ferritin Total Bilirubin Direct Bilirubin AST ALT Alkaline Phosphatase Lactate Dehydrogenase C-Reactive Protein Total Protein Albumin Triglycerides Lipase Arterial Blood Glucose Arterial Blood Ionized Calcium Urine WBC (Auto) Coronavirus (PCR) SARS-CoV-2 IgG Ab Crossmatch 07/16/20 07/16/20 07/16/20 05:19 11:45 17:17 WBC RBC Hgb Hct MCV MCH MCHC RDW Lymph % (Auto) [place] % (Auto) Lymph # (Auto) [place] # (Auto) Baso # (Auto) Seg Neutrophils % Seg Neuts % (Manual) Lymphocytes % (Manual) Nucleated RBC % Seg Neutrophils # Seg Neutrophils # Man Lymphocytes # (Manual) Monocytes # (Manual) Eosinophils # (Manual) PT INR APTT D-Dimer Heparin Anti-Xa Level ABG pH POC ABG pCO2 POC ABG pO2 ABG pO2 ABG HCO3 ABG O2 Saturation ABG Base Excess ABG Hemoglobin ABG Oxyhemoglobin ABG Sodium ABG Potassium ABG Chloride ABG Glucose Oxyhemoglobin Carboxyhemoglobin Sodium 132 L Potassium 3.4 L Chloride 89.9 L Carbon Dioxide 39 H BUN Creatinine 0.3 L Glucose 174 H POC Glucose 169 H 143 H Lactic Acid Calcium Magnesium Ferritin Total Bilirubin Direct Bilirubin AST ALT Alkaline Phosphatase Lactate Dehydrogenase C-Reactive Protein Total Protein Albumin Triglycerides Lipase Arterial Blood Glucose Arterial Blood Ionized Calcium Urine WBC (Auto) Coronavirus (PCR) SARS-CoV-2 IgG Ab Crossmatch 07/16/20 07/17/20 07/17/20 23:54 05:32 11:26 WBC RBC Hgb Hct MCV MCH MCHC RDW Lymph % (Auto) [place] % (Auto) Lymph # (Auto) [place] # (Auto) Baso # (Auto) Seg Neutrophils % Seg Neuts % (Manual) Lymphocytes % (Manual) Nucleated RBC % Seg Neutrophils # Seg Neutrophils # Man Lymphocytes # (Manual) Monocytes # (Manual) Eosinophils # (Manual) PT INR APTT D-Dimer Heparin Anti-Xa Level ABG pH POC ABG pCO2 POC ABG pO2 ABG pO2 ABG HCO3 ABG O2 Saturation ABG Base Excess ABG Hemoglobin ABG Oxyhemoglobin ABG Sodium ABG Potassium ABG Chloride ABG Glucose Oxyhemoglobin Carboxyhemoglobin Sodium Potassium Chloride Carbon Dioxide BUN Creatinine Glucose POC Glucose 147 H 149 H 211 H Lactic Acid Calcium Magnesium Ferritin Total Bilirubin Direct Bilirubin AST ALT Alkaline Phosphatase Lactate Dehydrogenase C-Reactive Protein Total Protein Albumin Triglycerides Lipase Arterial Blood Glucose Arterial Blood Ionized Calcium Urine WBC (Auto) Coronavirus (PCR) SARS-CoV-2 IgG Ab Crossmatch 07/17/20 07/17/20 07/18/20 18:16 23:12 06:15 WBC RBC Hgb Hct MCV MCH MCHC RDW Lymph % (Auto) [place] % (Auto) Lymph # (Auto) [place] # (Auto) Baso # (Auto) Seg Neutrophils % Seg Neuts % (Manual) Lymphocytes % (Manual) Nucleated RBC % Seg Neutrophils # Seg Neutrophils # Man Lymphocytes # (Manual) Monocytes # (Manual) Eosinophils # (Manual) PT INR APTT D-Dimer Heparin Anti-Xa Level ABG pH POC ABG pCO2 POC ABG pO2 ABG pO2 ABG HCO3 ABG O2 Saturation ABG Base Excess ABG Hemoglobin ABG Oxyhemoglobin ABG Sodium ABG Potassium ABG Chloride ABG Glucose Oxyhemoglobin Carboxyhemoglobin Sodium Potassium Chloride Carbon Dioxide BUN Creatinine Glucose POC Glucose 161 H 136 H 108 H Lactic Acid Calcium Magnesium Ferritin Total Bilirubin Direct Bilirubin AST ALT Alkaline Phosphatase Lactate Dehydrogenase C-Reactive Protein Total Protein Albumin Triglycerides Lipase Arterial Blood Glucose Arterial Blood Ionized Calcium Urine WBC (Auto) Coronavirus (PCR) SARS-CoV-2 IgG Ab Crossmatch 07/18/20 07/18/20 07/18/20 08:47 08:47 11:50 WBC 17.7 H RBC 3.29 L Hgb 10.5 L Hct 31.8 L MCV 97 H MCH MCHC RDW 16.9 H Lymph % (Auto) [place] % (Auto) 8.6 H Lymph # (Auto) [place] # (Auto) 1.5 H Baso # (Auto) Seg Neutrophils % 74.6 H Seg Neuts % (Manual) Lymphocytes % (Manual) Nucleated RBC % Seg Neutrophils # 13.2 H Seg Neutrophils # Man Lymphocytes # (Manual) Monocytes # (Manual) Eosinophils # (Manual) PT INR APTT D-Dimer Heparin Anti-Xa Level ABG pH POC ABG pCO2 POC ABG pO2 ABG pO2 ABG HCO3 ABG O2 Saturation ABG Base Excess ABG Hemoglobin ABG Oxyhemoglobin ABG Sodium ABG Potassium ABG Chloride ABG Glucose Oxyhemoglobin Carboxyhemoglobin Sodium Potassium 2.8 L* Chloride 92.6 L Carbon Dioxide 40 H BUN Creatinine 0.3 L Glucose 177 H POC Glucose 178 H Lactic Acid Calcium Magnesium Ferritin Total Bilirubin Direct Bilirubin AST ALT Alkaline Phosphatase Lactate Dehydrogenase C-Reactive Protein Total Protein Albumin Triglycerides Lipase Arterial Blood Glucose Arterial Blood Ionized Calcium Urine WBC (Auto) Coronavirus (PCR) SARS-CoV-2 IgG Ab Crossmatch 07/18/20 07/18/20 07/19/20 17:18 23:33 05:22 WBC RBC Hgb Hct MCV MCH MCHC RDW Lymph % (Auto) [place] % (Auto) Lymph # (Auto) [place] # (Auto) Baso # (Auto) Seg Neutrophils % Seg Neuts % (Manual) Lymphocytes % (Manual) Nucleated RBC % Seg Neutrophils # Seg Neutrophils # Man Lymphocytes # (Manual) Monocytes # (Manual) Eosinophils # (Manual) PT INR APTT D-Dimer Heparin Anti-Xa Level ABG pH POC ABG pCO2 POC ABG pO2 ABG pO2 ABG HCO3 ABG O2 Saturation ABG Base Excess ABG Hemoglobin ABG Oxyhemoglobin ABG Sodium ABG Potassium ABG Chloride ABG Glucose Oxyhemoglobin Carboxyhemoglobin Sodium Potassium Chloride Carbon Dioxide BUN Creatinine Glucose POC Glucose 171 H 162 H 166 H Lactic Acid Calcium Magnesium Ferritin Total Bilirubin Direct Bilirubin AST ALT Alkaline Phosphatase Lactate Dehydrogenase C-Reactive Protein Total Protein Albumin Triglycerides Lipase Arterial Blood Glucose Arterial Blood Ionized Calcium Urine WBC (Auto) Coronavirus (PCR) SARS-CoV-2 IgG Ab Crossmatch 07/19/20 07/19/20 07/19/20 12:00 16:27 23:41 WBC RBC Hgb Hct MCV MCH MCHC RDW Lymph % (Auto) [place] % (Auto) Lymph # (Auto) [place] # (Auto) Baso # (Auto) Seg Neutrophils % Seg Neuts % (Manual) Lymphocytes % (Manual) Nucleated RBC % Seg Neutrophils # Seg Neutrophils # Man Lymphocytes # (Manual) Monocytes # (Manual) Eosinophils # (Manual) PT INR APTT D-Dimer Heparin Anti-Xa Level ABG pH POC ABG pCO2 POC ABG pO2 ABG pO2 ABG HCO3 ABG O2 Saturation ABG Base Excess ABG Hemoglobin ABG Oxyhemoglobin ABG Sodium ABG Potassium ABG Chloride ABG Glucose Oxyhemoglobin Carboxyhemoglobin Sodium Potassium Chloride Carbon Dioxide BUN Creatinine Glucose POC Glucose 201 H 205 H 106 H Lactic Acid Calcium Magnesium Ferritin Total Bilirubin Direct Bilirubin AST ALT Alkaline Phosphatase Lactate Dehydrogenase C-Reactive Protein Total Protein Albumin Triglycerides Lipase Arterial Blood Glucose Arterial Blood Ionized Calcium Urine WBC (Auto) Coronavirus (PCR) SARS-CoV-2 IgG Ab Crossmatch 07/20/20 07/20/20 07/20/20 05:28 11:18 17:30 WBC RBC Hgb Hct MCV MCH MCHC RDW Lymph % (Auto) [place] % (Auto) Lymph # (Auto) [place] # (Auto) Baso # (Auto) Seg Neutrophils % Seg Neuts % (Manual) Lymphocytes % (Manual) Nucleated RBC % Seg Neutrophils # Seg Neutrophils # Man Lymphocytes # (Manual) Monocytes # (Manual) Eosinophils # (Manual) PT INR APTT D-Dimer Heparin Anti-Xa Level ABG pH POC ABG pCO2 POC ABG pO2 ABG pO2 ABG HCO3 ABG O2 Saturation ABG Base Excess ABG Hemoglobin ABG Oxyhemoglobin ABG Sodium ABG Potassium ABG Chloride ABG Glucose Oxyhemoglobin Carboxyhemoglobin Sodium Potassium Chloride Carbon Dioxide BUN Creatinine Glucose POC Glucose 130 H 195 H 141 H Lactic Acid Calcium Magnesium Ferritin Total Bilirubin Direct Bilirubin AST ALT Alkaline Phosphatase Lactate Dehydrogenase C-Reactive Protein Total Protein Albumin Triglycerides Lipase Arterial Blood Glucose Arterial Blood Ionized Calcium Urine WBC (Auto) Coronavirus (PCR) SARS-CoV-2 IgG Ab Crossmatch 07/20/20 07/21/20 07/21/20 23:26 05:03 17:03 WBC RBC Hgb Hct MCV MCH MCHC RDW Lymph % (Auto) [place] % (Auto) Lymph # (Auto) [place] # (Auto) Baso # (Auto) Seg Neutrophils % Seg Neuts % (Manual) Lymphocytes % (Manual) Nucleated RBC % Seg Neutrophils # Seg Neutrophils # Man Lymphocytes # (Manual) Monocytes # (Manual) Eosinophils # (Manual) PT INR APTT D-Dimer Heparin Anti-Xa Level ABG pH POC ABG pCO2 POC ABG pO2 ABG pO2 ABG HCO3 ABG O2 Saturation ABG Base Excess ABG Hemoglobin ABG Oxyhemoglobin ABG Sodium ABG Potassium ABG Chloride ABG Glucose Oxyhemoglobin Carboxyhemoglobin Sodium Potassium Chloride Carbon Dioxide BUN Creatinine Glucose POC Glucose 116 H 142 H 181 H Lactic Acid Calcium Magnesium Ferritin Total Bilirubin Direct Bilirubin AST ALT Alkaline Phosphatase Lactate Dehydrogenase C-Reactive Protein Total Protein Albumin Triglycerides Lipase Arterial Blood Glucose Arterial Blood Ionized Calcium Urine WBC (Auto) Coronavirus (PCR) SARS-CoV-2 IgG Ab Crossmatch 07/21/20 07/22/20 23:51 06:09 WBC RBC Hgb Hct MCV MCH MCHC RDW Lymph % (Auto) [place] % (Auto) Lymph # (Auto) [place] # (Auto) Baso # (Auto) Seg Neutrophils % Seg Neuts % (Manual) Lymphocytes % (Manual) Nucleated RBC % Seg Neutrophils # Seg Neutrophils # Man Lymphocytes # (Manual) Monocytes # (Manual) Eosinophils # (Manual) PT INR APTT D-Dimer Heparin Anti-Xa Level ABG pH POC ABG pCO2 POC ABG pO2 ABG pO2 ABG HCO3 ABG O2 Saturation ABG Base Excess ABG Hemoglobin ABG Oxyhemoglobin ABG Sodium ABG Potassium ABG Chloride ABG Glucose Oxyhemoglobin Carboxyhemoglobin Sodium Potassium Chloride Carbon Dioxide BUN Creatinine Glucose POC Glucose 127 H 136 H Lactic Acid Calcium Magnesium Ferritin Total Bilirubin Direct Bilirubin AST ALT Alkaline Phosphatase Lactate Dehydrogenase C-Reactive Protein Total Protein Albumin Triglycerides Lipase Arterial Blood Glucose Arterial Blood Ionized Calcium Urine WBC (Auto) Coronavirus (PCR) SARS-CoV-2 IgG Ab Crossmatch Chest x-ray: pending Allied health notes reviewed: nursing
--- NOTE | 2020-07-22 12:08 | Progress Note ---
Assessment and Plan Cultures: Blood culture 04/28/2020 no growth today SARS CoV2 PCR positive Sputum and urine culture with no significant growth Blood culture 07/13/2020 Pseudomonas aeruginosa pending DOLLY. Assessment: 50 years old male with history of alcohol dependence and obesity admitted on 05/09/2020 due to 5-day history of generalized malaise, fatigue, body aches, dyspnea exertion, cough and shortness of breath, tested positive for COVID-19 2 days before admission: #Pseudomonas bacteremia: Awaiting ID and DOLLY. Currently on cefepime, fevers have resolved since initiation of antibiotics. Continue pending results. Possibly from lungs? #VAP: extubated since onset of bacteremia. Given Pseudomonas in the blood and bilateral airspace disease, presumed VAP. Elevated procalcitonin. #Severe sepsis: likely due to bilateral pneumonia from COVID. #COVID-19: Diagnosed in early May, now with negative PCR. #Acute hypoxemic respiratory failure: intubated on 05/22/2020. Extubated 07/13/2020 Recommendations: -Continue cefepime 2 g every 8 hours. Will need 2 weeks of antibiotics total. Ideally could discharge with levofloxacin if sensitive. -Follow up blood culture DOLLY. Patricia Buchanan MD [facility] ([facility]) O: [phone] F: [phone] Subjective Date of service: 07/22/20 Principal diagnosis: Ac hypoxemic resp failure; COVID-19; Severe Sepsis; Shaggy PNA; Alcohol Abuse Interval history: Afebrile, no acute changes. Remains on HFNC. Objective - Exam Narrative Exam: Physical Exam: Constitutional: Alert, cooperative. No acute distress. On high flow nasal cannula. Head, Ears, Nose: Normocephalic, atraumatic. Eyes: Conjunctivae/corneas clear. No icterus. Neck: Supple, no meningeal signs Oral: dentition fair, no thrush Cardiovascular: S1, S2 normal. Respiratory: Good air entry, clear to auscultation bilaterally GI: Soft, non-tender; bowel sounds normal. No peritoneal signs. Musculoskeletal: No pedal edema, no cyanosis. Skin: No rash or abscess Hem/Lymphatic: No palpable cervical or supraclavicular nodes. Psych: Mood ok. Affect normal Neurological: Awake, alert, oriented. No gross abnormality - Constitutional Vitals: Vital Signs Temp Pulse Resp BP Pulse Ox 98.6 F 110 H 19 120/77 93 07/22/20 04:00 07/22/20 06:00 07/22/20 06:00 07/22/20 06:00 07/22/20 10:14 Temperature -Last 24 Hours Temperature 98.6 F Temperature 97.2 F Temperature 98.2 F Temperature 98.3 F - Labs CBC & Chem 7: 07/18/20 08:47 07/18/20 08:47 Labs: Abnormal lab results 07/21/20 07/21/20 07/22/20 Range/Units 17:03 23:51 06:09 POC Glucose 181 H 127 H 136 H (70-105) mg/dL 07/22/20 Range/Units 11:40 POC Glucose 160 H (70-105) mg/dL
--- NOTE | 2020-07-22 12:16 | Progress Note ---
Assessment and Plan Assessment and plan: --Acute hypoxemic respiratory failure;on high flow nasal cannula oxygen Status post extubation, high flow oxygen and BiPAP ,wean as tolerated, supportive care Pulmonary critical l care following --Pneumothorax status post right chest tube Chest x-ray no pneumothorax chest tube in place --Sinus tachycardia: --Severe COVID-19 bilateral pneumonia Coronavirus protocol: IV steroid therapy, completed remdesivir, isolation precautions, contact precautions, prone positioning while in bed, pulmonary toilet. ID following SARS CoV-2 IgG positive patient is NOT a candidate for convalescent plasma --Elevated D-dimers/hyper coag state; Empiric anticoagulation with full dose Lovenox Closely monitor --Pseudomonas bacteremia; ID following, Continue cefepime --Severe sepsis/septic shock, due to COVID 19 PNA cont pressors as needed -- Acute kidney injury (SEN) , likely vasomotor nephropathy Resolved, IV fluids, avoid nephrotoxins --Acute on chronic anemia Guaiac test positive, GI evaluation PPIs, Continue to monitor -- Elevated liver function tests Suspected secondary to alcoholic liver disease. Supportive care, alcohol cessation, patient counseled. --Colonic distention GI evaluated colonic distention resolved recommend stool softeners Serial abdominal x-rays Monitor electrolytes and replete -- DVT prophylaxis On therapeutic Lovenox Closely monitor the patient and adjust management as needed Patient is critically ill with poor prognosis Plan of care reviewed with the patient's nurse We will try to contact family and update patient's condition Brief history and hospital course; 50 YO Male with Obesity, ETOH Dependence presents to ED for evaluation. Patient states that he has experienced shortness of breath, generalized weakness, fatigue, malaise, body aches, decreased exercise tolerance over the past 5 days with persistently worsening symptoms over the same timeframe. EMS was notified and upon arrival the patient was found to be in distress with a pulse oximetry of 76% on room air as well as fever to 103 F. Patient was placed on supp lemental oxygen and subsequently transported to [facility] for further care and evaluation. Patient seen and evaluated in the emergency department. All lab and imaging studies reviewed. Patient underwent chest x-ray and was found to have bilateral pneumonia. Patient also found to have a pulse oximetry of 86% on 4 L nasal cannula. Patient initiated on a high flow submental oxygen with improvement of pulse oximetry. Patient admitted to medical floor and initiated on pneumonia protocol as well as COVID-19 protocol. Patient also found to have acute kidney injury as well as elevated liver function test suspected secondary to alcohol dependence. Patient reports being diagnosed with coronavirus 2 days ago. No prior admission for review. 06/16/2020. Patient currently on mechanical ventilation with AC mode rate 30, tidal volume 500, FiO2 70% and PEEP of 16. Continue anticoagulation with Lovenox 110 milligrams subcu every 12 hours. Wean sedation of fentanyl/Versed a s needed. Currently with IV steroids of Solu-Medrol 40 mg IV every 12 hours. Patient will likely need tracheostomy per pulmonary recommendations. Continue pressors to maintain MAP > 65. 06/17/2020. Patient currently on mechanical ventilation with AC mode rate 30, tidal volume 500, FiO2 65% and PEEP of 16. Continue anticoagulation with Lovenox 110 milligrams subcu every 12 hours. Wean sedation of fentanyl/Versed as needed. Currently with IV steroids of Solu-Medrol 40 mg IV every 12 hours. Patient will likely need tracheostomy per pulmonary recommendations. 06/18/2020. Patient currently on mechanical ventilation with AC mode rate 30, tidal volume 500, FiO2 70% and PEEP of 16. Continue Lovenox for anticoagulation and fentanyl/Versed for sedation. Wean steroids per pulmonary. CIWA protocol initiated for history of EtOH dependence 06/19/2020. Patient currently on mechanical ventilation with AC mode rate 30, tidal volume 500, FiO2 60% and PEEP of 16. Wean FiO2 as tolerated per protocol. Continue Lovenox for anticoagulation and fentanyl/Versed for sedation. Wean steroids per pulmonary. CIWA protocol initiated for history of EtOH dependence 06/20/2020. Patient currently on mechanical ventilation with AC mode rate 30, tidal volume 500, FiO2 60% and PEEP of 16. Wean FiO2 as tolerated, SBT per protocol. Continue Lovenox for anticoagulation and fentanyl/Versed for s edation. Wean steroids per pulmonary. Continue pressors to maintain MAP > 65 mmHg. Patient remains on ETT. Consider tracheostomy placement once oxygenation is better per pulmonary. CIWA protocol initiated for history of EtOH dependence. 06/21/2020. Patient with a small apical pneumothorax discovered yesterday. General surgery consulted and consider placing chest tube. Follow-up serial arthur st x-ray patient currently on mechanical ventilation with AC mode rate 30, tidal volume 500, FiO2 60% and PEEP of 16. Wean FiO2 as tolerated, SBT per protocol. Continue Lovenox for anticoagulation and fentanyl/Versed for sedation. Wean steroids per pulmonary. Continue pressors to maintain MAP > 65 mmHg. Patient remains on ETT. Consider tracheostomy placement once oxygenation is better per pulmonary. CIWA protocol initiated for history of EtOH dependence. 06/22. Status post right chest tube placement yesterday. Remains mechanically ventilated on pressors. Examination today shows slightly distended abdomen. KUB ordered. Awaiting stool guaiac. Plan to get a GI evaluation. 06/23. Has colonic distention on the x-ray. Discussed with GI-advised stool softeners for now and close monitoring. No indication for colonic decompression at this time. Guaiac test is positive. No emergent indication for endoscopy at this point as per GI. Continue to monitor hemoglobin. 06/24. Remains intubated. On pressors. GI following for positive guaiac stool and anemia, and colonic distention. 06/25. Repeat abdominal xray ordered. Remains on mechanical ventilation. 06/26. Abdominal xray - resolved colonic distension. Mechanically ventilated. 06/27. Plan for trach and PEG. 06/28: Awaiting trach and Peg. S\ome Bm REPORTED, will continue to monitor 06/29: Resume care, patient remains on ventilator support, waiting on trach and PEG placement. BM reported by the RN, continue to monitor. 06/30: Unable to wean off from vent, patient will need trach and PEG. Continue supportive care, tolerating tube feed. Monitor CBC and BMP 07/01: Continue mechanical ventilation, tube feeding as tolerated. Sedation as needed per mechanical ventilation protocol. Waiting on trach and PEG placement. 07/02: Continue current management, tube feeding, monitor CBC and BMP. Need trach and PEG-waiting on scheduling. Pulmonary critical care following. 07/03: wean off vent as tolerated. follow clinically. need trach and PEG 07/04: unable to wean. CT head ordered to assess for any changes but too unstable to do the test. need trach and PEG. 07/05: plan for trach/peg - GS following. off pressor - on midodrine. renal function stable. intubated, but alert and can follow minor commend. discussed with daughter by phone. 07/06/2020; Dr. Márquez discussed with patient's daughter about trach but the daughter needs time to think about it. Patient was intubated and alert, FiO2 40%. 07/07/2020; patient was intubated and alert, FiO2 40%. Patient was diaphoretic, tachycardic, and EKG was done which was abnormal for me. I called bosom presser Dr Louis saw the EKG and said it is normal EKG, and the findings are abnormal. 07/08/2020; no significant change, patient is intubated and alert. 07/10: Patient continues on current management. Pulmonary recommending trach and PEG awaiting patient's decision on this. Will check intermittent labs 07/11: Ordered CT still pending. Patient was agitated at night. Appears to have calmed down. Will repeat labs today. 07/12: Continue supportive care, awaiting CPAP trial. discussed with pulmonary. Ob tain labs today. Trach and Peg planned 07/13: Continues to current management, PLAN FOR Trach and PEG on Sunday if patient is not able to liberated from the ventilator, Continue to monitor Fever curve and repeat Sepsis work up if persistent fever 07/14: Now extubated, continue to work up. 07/15: Clinical stable for transfer to [facility], still with fever and now showing bactermia. Continue Abx per ID. monitor fever 07/16: Continue supportive care. MONITOR FEVER CURVE, Adjust antibiotics as tolerated 07/17: Chest tube remains in place. More lethargic, Requested BIPAP to bedside, Chest tube to be discontinued, Awaiting Pysch input. 07/18: Chest tube remains in place repeat chest x-ray shows persistent bilateral opacity with mild improvement. Continue nebulizer treatments. Hypokalemia also noted will replace. Pulmonary and surgical input noted 07/19: Patient is a 50-year-old male admitted with shortness of breath ended up on mechanical ventilation noted to have pneumothorax has a chest tube in place. Has been successfully extubated but remains with delirium secondary to medical condition and also mild to moderate respiratory distress on Venturi mask. Continue weaning attempts. Patient still with chest tube. Continue serial x- rays. Will discuss with case management about possible LTAC placement. Blood cultures are currently returning Pseudomonas species. ID is following. 07/20/2020; patient continues to feel better, high flow oxygen and BiPAP Chest tube in place, continue current management, pulmonary surgery following 07/21/2020:Patient remains on High flow o2 07/22/2020; patient remains on high flow oxygen 8 L 100% O2 sat 93% Case management checking for LTAC placement The high probability of a clinically significant, sudden or life threatening deterioration of the [respiratory] system(s) required my full and direct attention, intervention and personal management. The aggregate critical care time was [33] minutes. This time is in addition to time spent performing re ported procedures but includes the following: [x] Data Review and interpretation [x] Patient assessment and monitoring of vital signs [x] Documentation [x] Medication orders and management History Interval history: I have seen and examined the patient at the bedside Patient's chart and medications reviewed Patient remains on high flow oxygen Denies chest pain or shortness of breath Vital signs noted Hospitalist Physical - Constitutional Vitals: Temp Pulse Resp BP Pulse Ox 98.6 F 110 H 19 120/77 93 07/22/20 04:00 07/22/20 06:00 07/22/20 06:00 07/22/20 06:00 07/22/20 10:14 General appearance: Present: mild distress, well-nourished, other (On BiPAP) - EENT Eyes: Present: PERRL, EOM intact - Neck Neck: Present: supple, normal ROM - Respiratory Respiratory effort: normal, other (Right-sided chest tube in place) Respiratory: bilateral: diminished, rhonchi, negative: rales, wheezing - Cardiovascular Rhythm: regular Heart Sounds: Present: S1 & S2 - Extremities Extremities: no ischemia, No edema - Abdominal General gastrointestinal: soft, non-tender, non-distended, normal bowel sounds - Integumentary Integumentary: Present: clear, warm - Psychiatric Psychiatric: appropriate mood/affect, cooperative - Neurologic Neurologic: moves all extremities HEART Score - HEART Score Troponin: Troponin T 0.015 ng/mL (0.00-0.029) 07/07/20 10:00 Results - Labs CBC & Chem 7: 07/18/20 08:47 07/18/20 08:47 Labs: Laboratory Last Values WBC 17.7 K/mm3 (4.5-11.0) H 07/18/20 08:47 RBC 3.29 M/mm3 (3.65-5.03) L 07/18/20 08:47 Hgb 10.5 gm/dl (11.8-15.2) L 07/18/20 08:47 Hct 31.8 % (35.5-45.6) L 07/18/20 08:47 MCV 97 fl (84-94) H 07/18/20 08:47 MCH 32 pg (28-32) 07/18/20 08:47 MCHC 33 % (32-34) 07/18/20 08:47 RDW 16.9 % (13.2-15.2) H 07/18/20 08:47 Plt Count 374 K/mm3 (140-440) 07/18/20 08:47 Lymph % (Auto) 15.0 % (13.4-35.0) 07/18/20 08:47 [place] % (Auto) 8.6 % (0.0-7.3) H 07/18/20 08:47 Eos % (Auto) 1.5 % (0.0-4.3) 07/18/20 08:47 Baso % (Auto) 0.3 % (0.0-1.8) 07/18/20 08:47 Lymph # (Auto) 2.6 K/mm3 (1.2-5.4) 07/18/20 08:47 [place] # (Auto) 1.5 K/mm3 (0.0-0.8) H 07/18/20 08:47 Eos # (Auto) 0.3 K/mm3 (0.0-0.4) 07/18/20 08:47 Baso # (Auto) 0.0 K/mm3 (0.0-0.1) 07/18/20 08:47 Add Manual Diff Complete 07/13/20 08:31 Total Counted 100 07/13/20 08:31 Seg Neutrophils % 74.6 % (40.0-70.0) H 07/18/20 08:47 Seg Neuts % (Manual) 96.0 % (40.0-70.0) H 07/13/20 08:31 Band Neutrophils % 0 % 07/13/20 08:31 Lymphocytes % (Manual) 2.0 % (13.4-35.0) L 07/13/20 08:31 Reactive Lymphs % (Man) 0 % 07/13/20 08:31 Monocytes % (Manual) 2.0 % (0.0-7.3) 07/13/20 08:31 Eosinophils % (Manual) 0 % (0.0-4.3) 07/13/20 08:31 Basophils % (Manual) 0 % (0.0-1.8) 07/13/20 08:31 Metamyelocytes % 0 % 07/13/20 08:31 Myelocytes % 0 % 07/13/20 08:31 Promyelocytes % 0 % 07/13/20 08:31 Blast Cells % 0 % 07/13/20 08:31 Nucleated RBC % Not Reportable 07/13/20 08:31 Seg Neutrophils # 13.2 K/mm3 (1.8-7.7) H 07/18/20 08:47 Seg Neutrophils # Man 20.4 K/mm3 (1.8-7.7) H 07/13/20 08:31 Band Neutrophils # 0.0 K/mm3 07/13/20 08:31 Lymphocytes # (Manual) 0.4 K/mm3 (1.2-5.4) L 07/13/20 08:31 Abs React Lymphs (Man) 0.0 K/mm3 07/13/20 08:31 Monocytes # (Manual) 0.4 K/mm3 (0.0-0.8) 07/13/20 08:31 Eosinophils # (Manual) 0.0 K/mm3 (0.0-0.4) 07/13/20 08:31 Basophils # (Manual) 0.0 K/mm3 (0.0-0.1) 07/13/20 08:31 Metamyelocytes # 0.0 K/mm3 07/13/20 08:31 Myelocytes # 0.0 K/mm3 07/13/20 08:31 Promyelocytes # 0.0 K/mm3 07/13/20 08:31 Blast Cells # 0.0 K/mm3 07/13/20 08:31 WBC Morphology Not Reportable 07/13/20 08:31 Hypersegmented Neuts Not Reportable 07/13/20 08:31 Hyposegmented Neuts Not Reportable 07/13/20 08:31 Hypogranular Neuts Not Reportable 07/13/20 08:31 Smudge Cells Not Reportable 07/13/20 08:31 Toxic Granulation Not Reportable 07/13/20 08:31 Toxic Vacuolation Not Reportable 07/13/20 08:31 Dohle Bodies Not Reportable 07/13/20 08:31 Pelger-Huet Anomaly Not Reportable 07/13/20 08:31 Jason Rods Not Reportable 07/13/20 08:31 Platelet Estimate Consistent w auto 07/13/20 08:31 Clumped Platelets Not Reportable 07/13/20 08:31 Plt Clumps, EDTA Not Reportable 07/13/20 08:31 Large Platelets Not Reportable 07/13/20 08:31 Giant Platelets Not Reportable 07/13/20 08:31 Platelet Satelliting Not Reportable 07/13/20 08:31 Plt Morphology Comment Not Reportable 07/13/20 08:31 RBC Morphology Not Reportable 07/13/20 08:31 Dimorphic RBCs Not Reportable 07/13/20 08:31 Polychromasia Not Reportable 07/13/20 08:31 Hypochromasia Not Reportable 07/13/20 08:31 Poikilocytosis Not Reportable 07/13/20 08:31 Anisocytosis Not Reportable 07/13/20 08:31 Microcytosis Not Reportable 07/13/20 08:31 Macrocytosis Not Reportable 07/13/20 08:31 Spherocytes Not Reportable 07/13/20 08:31 Pappenheimer Bodies Not Reportable 07/13/20 08:31 Sickle Cells Not Reportable 07/13/20 08:31 Target Cells Not Reportable 07/13/20 08:31 Tear Drop Cells Not Reportable 07/13/20 08:31 Ovalocytes Not Reportable 07/13/20 08:31 Stomatocytes Few 07/13/20 08:31 Helmet Cells Not Reportable 07/13/20 08:31 [place] Bodies Not Reportable 07/13/20 08:31 [place] Rings Not Reportable 07/13/20 08:31 [place] Cells Not Reportable 07/13/20 08:31 Bite Cells Not Reportable 07/13/20 08:31 Crenated Cell Not Reportable 07/13/20 08:31 Elliptocytes Not Reportable 07/13/20 08:31 Acanthocytes (Spur) Not Reportable 07/13/20 08:31 Rouleaux Not Reportable 07/13/20 08:31 Hemoglobin C Crystals Not Reportable 07/13/20 08:31 Schistocytes Not Reportable 07/13/20 08:31 Malaria parasites Not Reportable 07/13/20 08:31 Josue Bodies Not Reportable 07/13/20 08:31 Hem Pathologist Commnt No 07/13/20 08:31 PT 11.8 Sec. (12.2-14.9) L 06/22/20 14:29 INR 0.88 (0.87-1.13) 06/22/20 14:29 APTT 23.5 Sec. (24.2-36.6) L 06/22/20 14:29 D-Dimer 1887.82 ng/mlDDU (0-234) H 05/20/20 08:16 Heparin Anti-Xa Level 0.37 U.I./ml (0.3-0.7) 07/02/20 16:08 ABG pH 7.477 (7.320-7.450) H 07/13/20 13:52 POC ABG pCO2 54.4 mmHg (32.0-48.0) H 07/13/20 13:52 ABG pCO2 53.1 mm Hg 07/08/20 Unknown POC ABG pO2 126.8 mmHg (83-108) H 07/13/20 13:52 ABG pO2 75.3 mm Hg (80.0-90.0) L 07/08/20 Unknown POC ABG HCO3 39.3 07/13/20 13:52 ABG HCO3 34.3 mmol/L (20.0-26.0) H 07/08/20 Unknown ABG O2 Saturation 96.5 % (95.0-99.0) 07/08/20 Unknown ABG O2 Content 13.5 (0.0-44) 07/08/20 Unknown POC ABG Base Excess 13.8 07/13/20 13:52 ABG Base Excess 8.7 mmol/L (-2.0-3.0) H 07/08/20 Unknown ABG Hemoglobin 11.5 (12.0-17.5) L 07/13/20 13:52 ABG Oxyhemoglobin 97.7 (94-98) 07/13/20 13:52 ABG Carboxyhemoglobin 2.4 % (0.0-5.0) 07/08/20 Unknown ABG Methemoglobin 0 (0.0-1.5) 07/13/20 13:52 ABG Sodium 136.2 mmol/L (136.0-145.0) 07/13/20 13:52 ABG Potassium 3.2 mmol/L (3.40-4.50) L 07/13/20 13:52 ABG Chloride 92.0 mmol/L (98-107) L 07/13/20 13:52 ABG Glucose 169 mg/dL (65-95) H 07/13/20 13:52 Oxyhemoglobin 93.7 % (95.0-99.0) L 07/08/20 Unknown Carboxyhemoglobin 1.2 (0.5-1.5) 07/13/20 13:52 FiO2 45 07/13/20 13:52 Sodium 138 mmol/L (137-145) 07/18/20 08:47 Potassium 2.8 mmol/L (3.6-5.0) L* 07/18/20 08:47 Chloride 92.6 mmol/L (98-107) L 07/18/20 08:47 Carbon Dioxide 40 mmol/L (22-30) H 07/18/20 08:47 Anion Gap 8 mmol/L 07/18/20 08:47 BUN 11 mg/dL (9-20) 07/18/20 08:47 Creatinine 0.3 mg/dL (0.8-1.3) L 07/18/20 08:47 Estimated GFR > 60 ml/min 07/18/20 08:47 BUN/Creatinine Ratio 37 % 07/18/20 08:47 Glucose 177 mg/dL (75-100) H 07/18/20 08:47 POC Glucose 160 mg/dL (70-105) H 07/22/20 11:40 Lactic Acid 0.80 mmol/L (0.7-2.0) 07/13/20 15:45 Calcium 9.7 mg/dL (8.4-10.2) 07/18/20 08:47 Phosphorus 3.10 mg/dL (2.5-4.5) 06/15/20 04:00 Magnesium 1.80 mg/dL (1.7-2.3) 07/14/20 07:49 Ferritin 1496.0 ng/mL (30.0-300.0) H 06/14/20 11:50 Total Bilirubin 0.60 mg/dL (0.1-1.2) 06/30/20 07:00 Direct Bilirubin 0.6 mg/dL (0-0.2) H 05/11/20 07:30 Indirect Bilirubin 0.9 mg/dL 05/11/20 07:30 AST 21 units/L (5-40) 06/30/20 07:00 ALT 30 units/L (7-56) 06/30/20 07:00 Alkaline Phosphatase 81 units/L (35-129) 06/30/20 07:00 Lactate Dehydrogenase 705 units/L (91-180) H 05/20/20 08:16 Troponin T 0.015 ng/mL (0.00-0.029) 07/07/20 10:00 C-Reactive Protein 3.10 mg/dL (0.00-1.30) H 05/20/20 08:16 Total Protein 6.3 g/dL (6.3-8.2) 06/30/20 07:00 Albumin 2.8 g/dL (3.9-5) L 06/30/20 07:00 Albumin/Globulin Ratio 0.8 % 06/30/20 07:00 Triglycerides 452 mg/dL (2-149) H 06/30/20 07:00 Lipase 86 units/L (13-60) H 06/29/20 09:36 Procalcitonin 2.15 ng/mL (<0.15) 07/15/20 05:31 Arterial Blood Glucose 169 mg/dL (65-95) H 07/13/20 13:52 Arterial Blood Ionized Calcium 4.8 mg/dL (4.6-5.3) 07/13/20 13:52 Urine Color Fauzia (Yellow) 05/10/20 Unknown Urine Turbidity Clear (Clear) 05/10/20 Unknown Urine pH 5.0 (5.0-7.0) 05/10/20 Unknown Ur Specific [place] 1.019 (1.003-1.030) 05/10/20 Unknown Urine Protein 100 mg/dl mg/dL (Negative) 05/10/20 Unknown Urine Glucose (UA) Neg mg/dL (Negative) 05/10/20 Unknown Urine Ketones Neg mg/dL (Negative) 05/10/20 Unknown Urine Blood Lg (Negative) 05/10/20 Unknown Urine Nitrite Neg (Negative) 05/10/20 Unknown Urine Bilirubin Neg (Negative) 05/10/20 Unknown Urine Urobilinogen 2.0 mg/dL (<2.0) 05/10/20 Unknown Ur Leukocyte Esterase Neg (Negative) 05/10/20 Unknown Urine WBC (Auto) 11.0 /HPF (0.0-6.0) H 05/10/20 Unknown Urine RBC (Auto) 2.0 /HPF (0.0-6.0) 05/10/20 Unknown U Epithel Cells (Auto) 1.0 /HPF (0-13.0) 05/10/20 Unknown Urine Bacteria (Auto) 1+ /HPF (Negative) 05/10/20 Unknown Urine Mucus Few /HPF 05/10/20 Unknown Plasma/Serum Alcohol < 0.01 % (0-0.07) 05/09/20 14:20 Coronavirus (PCR) Negative (Negative) 06/30/20 10:28 Hepatitis A Ab Total Nonreactive (Nonreactive) 07/09/20 Unknown Hep B Core Total Ab Nonreactive (Nonreactive) 07/09/20 Unknown Hepatitis C RNA Quant See scanned result 07/09/20 Unknown SARS-CoV-2 IgG Ab Reactive (NonReactive) A 05/11/20 07:30 Blood Type B POSITIVE 06/21/20 14:18 Antibody Screen Negative 06/21/20 14:18 Crossmatch See Detail 06/21/20 14:18 Microbiology: Microbiology 07/13/20 Unknown Peripheral/Venous Blood Culture - Preliminary Pseudomonas Aeruginosa 07/13/20 Unknown Peripheral/Venous Blood Culture - Preliminary Pseudomonas Aeruginosa - Diagnostic Impressions Diagnostic Impressions: Echocardiogram 05/20/20 13:02 Transthoracic Echocardiogram Indication: CHF BP: 97/73 Conclusions *The study quality is technically very difficult and limited. *The left ventricular chamber size, wall thickness and systolic function are within normal limits. There are no wall motion abnormalities observed. Ejection fraction is normal. *The estimated ejection fraction is 60-65%. *The pericardium appears normal. Findings Procedure Info: The study quality is technically difficult. Left Ventricle: The left ventricular chamber size, wall thickness and systolic function are within normal limits. There are no wall motion abnormalities observed. Ejection fraction is normal. The estimated ejection fraction is 60-65%. Abnormal left ventricular diastolic filling is observed, consistent with impaired relaxation. Left Atrium: The left atrium is normal in size with no visual thrombus identified. Right Ventricle: The right ventricle is not well visualized. Right Atrium: The right atrium is not well visualized. Aortic Valve: The aortic valve is trileaflet. The leaflets are thin with normal excursion. There is no aortic stenosis or regurgitation present. Mitral Valve: The mitral valve appears normal in structure and function. Tricuspid Valve: The tricuspid valve appears normal in structure and function. Unable to estimate the right ventricular systolic pressure. Pulmonic Valve: The pulmonic valve is not well visualized. There is no evidence of pulmonic regurgitation. There is no pulmonic stenosis. Pericardium: The pericardium appears normal. Pulmonary Artery: The main pulmonary artery is not well visualized. Venous: The inferior vena cava appears normal in size. Measurements Chambers 2D Name Value Normal Range IVSd (2D) 0.83 cm (0.6 - 1.1) LVPWd (2D) 0.83 cm (0.6 - 1.1) LVIDd (2D) 3.88 cm (3.7 - 5.6) LVIDs (2D) 2.46 cm (2 - 3.8) LV FS (2D) 36.52 % - EF Teichholz (2D) 66.97 % - Ao root diameter (2D) 3.47 cm (2 - 3.7) Volumes/Mass Name Value Normal Range LA ESV SP 4CH (A/L) 22.4 ml - LA ESV SP 2CH (A/L) 22.89 ml - LA ESV BP (A/L) 23.06 ml - LA ESV SP 4CH (MOD) 21.09 ml - LA ESV SP 2CH (MOD) 22.44 ml - Diastolic/Systolic Function Name Value Normal Range MV E-wave Vmax 0.48 m/sec - MV deceleration time 156.3 msec - MV A-wave Vmax 0.59 m/sec - MV E:A ratio 0.81 ratio - Aortic Valve Name Value Normal Range AV Vmax 0.97 m/sec - AV VTI 14.49 cm - AV peak gradient 3.73 mmHg - AV mean gradient 1.89 mmHg - LVOT diameter 2.09 cm - LVOT Vmax 0.72 m/sec - LVOT VTI 10.21 cm - LVOT peak gradient 2.05 mmHg - LVOT mean gradient 1.03 mmHg - SV LVOT 35.17 ml - INNA (continuity Vmax) 2.55 cm2 - INNA (continuity VTI) 2.43 cm2 - Tricuspid Valve Name Value Normal Range TV E-wave Vmax 0.37 m/sec - Pulmonic Valve/Qp:Qs Name Value Normal Range PV Vmax 0.72 m/sec - PV peak gradient 2.06 mmHg - RVOT Vmax 0.85 m/sec - RVOT VTI 9.89 cm - RVOT peak gradient 2.9 mmHg - PV acceleration time 72.31 msec - Cantor/IV: Voiding Method Condom Catheter IV Catheter Type [Right Wrist] INT / Saline Lock IV Catheter Type [Right Upper Peripheral IV arm] IV Catheter Type [Right CVL Internal Jugular] IV Catheter Type [Right Peripheral IV Forearm] IV Catheter Type [Left Forearm INT / Saline Lock ] IV Catheter Type [Left Wrist] INT / Saline Lock IV Catheter Type [Right Hand] INT / Saline Lock IV Catheter Type [Left Hand] INT / Saline Lock IV Catheter Type [Left Peripheral IV Antecubital] Active Medications - Current Medications Current Medications: Generic Name Dose Route Start Last Admin Trade Name Freq PRN Reason Stop Dose Admin Alprazolam 0.25 mg 05/20/20 17:53 07/17/20 12:00 Alprazolam 0.25 Mg Tab PO 0.25 mg Q8H PRN Administration Anxiety Lipase/Protease/Amylase 1 each 05/22/20 13:01 Lipase 10,500/Protease 25,000/Amylase 43,750 (Units) Dr Newell FEEDTUBE PRN PRN For Clogged Feeding Tube Bisacodyl 10 mg 07/14/20 11:00 Bisacodyl 10 Mg Rect Supp HI BID PRN Laxative Effect Docusate Sodium 100 mg 05/28/20 14:00 07/22/20 10:49 Docusate Sodium 100 Mg/10 Ml Oral Liqd PO Not Given BID DESIRE Enoxaparin Sodium 80 mg 07/07/20 23:00 07/22/20 10:47 Enoxaparin 80 Mg/0.8 Ml Inj SUB-Q 80 mg Q12HR DESIRE Administration Enoxaparin Sodium 30 mg 07/07/20 23:00 07/22/20 10:47 Enoxaparin 30 Mg/0.3 Ml Inj SUB-Q 30 mg Q12HR DESIRE Administration Folic Acid 1 mg 05/09/20 15:36 07/22/20 10:46 Folic Acid 1 Mg Tab PO 1 mg QDAY DESIRE Administration Guaifenesin 600 mg 07/19/20 23:00 07/22/20 10:47 Guaifenesin Er 600 Mg Tab PO 600 mg BID DESIRE Administration Hydrophilic Ointment 1 applic 05/21/20 20:33 Lip Therapy Vaseline TP Q2HR PRN Dry Lips Cefepime HCl 2 gm in 100 mls @ 200 mls/hr 07/14/20 21:00 07/22/20 05:55 Cefepime/Ns 2 Gm/100 Ml IV 07/28/20 13:29 100 mls/hr Q8H [facility] Administration Protocol Insulin Human Lispro 0 unit 05/29/20 14:00 07/22/20 06:36 Insulin Lispro 100 Unit/Ml Vial 3 Ml SUB-Q Not Given Q6H [facility] Protocol Lansoprazole 30 mg 06/28/20 10:00 07/22/20 10:46 Lansoprazole 30 Mg Solutab FEEDTUBE 30 mg QDAY DESIRE Administration Lorazepam 1 mg 07/04/20 01:10 07/18/20 11:57 Lorazepam 2 Mg/Ml Vial IV 1 mg Q1HR PRN Administration agitation Methylprednisolone Sodium Succinate 20 mg 07/15/20 10:00 07/22/20 10:48 Methylprednisolone Sod Succinate 40 Mg/1 Ml Inj IV 20 mg Q24HR DESIRE Administration Metoprolol Tartrate 5 mg 07/02/20 17:17 07/08/20 14:38 Metoprolol Tartrate 5 Mg/5 Ml Inj IV 5 mg Q6HR PRN Administration Tachyarrhythmias Metoprolol Tartrate 12.5 mg 07/17/20 12:00 07/22/20 10:46 Metoprolol Tartrate 25 Mg Tab PO 12.5 mg BID DESIRE Administration Midodrine 10 mg 06/30/20 16:00 07/22/20 10:46 Midodrine 5 Mg Tab PO 10 mg TID@0800,1200,1600 DESIRE Administration Multi-Ingred Cream/Lotion/Oil/Oint 1 applic 05/21/20 20:33 Mineral Oil/Petrolatum, White Ophth Oint 3.5 Gm OU Q4HR PRN Dry Eye(s) Olanzapine 5 mg 07/17/20 22:00 07/21/20 21:04 Olanzapine 5 Mg Tab PO 5 mg QHS DESIRE Administration Phenobarbital 32.4 mg 07/04/20 22:00 07/22/20 10:45 Phenobarbital 32.4 Mg Tab PO 32.4 mg BID DESIRE Administration Quetiapine Fumarate 200 mg 07/16/20 10:00 07/22/20 10:46 Quetiapine 200 Mg Tab PO 200 mg QAM DESIRE Administration Senna 17.2 mg 07/14/20 11:00 Sennosides 8.6 Mg Tab PO BID PRN Laxative Effect Simple Syrup 15 ml 05/22/20 13:01 07/15/20 05:35 Simple Syrup 15 Ml FEEDTUBE 15 ml PRN PRN Administration Hypoglycemia Simple Syrup 30 ml 05/22/20 13:01 Simple Syrup 15 Ml FEEDTUBE PRN PRN Hypoglycemia Sodium Bicarbonate 325 mg 05/22/20 13:01 Sodium Bicarbonate 325 Mg Tab FEEDTUBE PRN PRN For Clogged Feeding Tube Sodium Chloride 10 ml 05/09/20 22:00 07/22/20 10:48 Sodium Chloride 0.9% 10 Ml Flush Syringe IV 10 ml BID DESIRE Administration Nutrition/Malnutrition Assess - Dietary Evaluation Nutrition/Malnutrition Findings: Nutrition Notes Start: 05/17/20 14:10 Freq: Status: Active Protocol: Document 07/16/20 13:58 AB (Rec: 07/16/20 14:09 AB [id number]) Co-Sign 07/16/20 13:58 MK Nutrition Notes Initial or Follow up Reassessment Current Diagnosis Acute Kidney Injury,Decubitus( Pressure Ulcer),Sepsis, Respiratory Failure Other Pertinent Diagnosis Bilat pneu, COVID-19 (+), EtOH dependence Current Diet Vital HP at 65 ml/hr Labs/Tests Na 132 K 3.4 Cr 0.3 BG 174 Pertinent Medications Reviewed Height 6 ft Weight 107.5 kg [place] Body Weight (kg) 80.90 BMI 32.1 Weight Status Obese Subjective/Other Information F/U for TF start/tolerance. Observed pt TF running at goal rate. Pt is no longer on vent . Percent of energy/protein needs met: 91%/100% Burn Absent Trauma Absent GI Symptoms None Current % PO Negligible Minimum of two criteria No physical signs of malnutrition #2 Nutrition Diagnosis Increased nutrient needs ( specify in comment below) Diagnosis Progress(for reassessment Continues documentation) #1 Nutrition Diagnosis Inadequate oral intake Diagnosis Progress(for reassessment Continues documentation) Is patient on ventilator? No Is Patient Ambulatory and/or Out of Bed No REE-([place]-St Jeor-confined to bed) 2365.212 Kcal/Kg value to use for calculation 16 Approximate Energy Requirements Using 1720 kcal/Kg Calculation Used for Recommendations Kcal/kg Additional Notes Protein: 134-161 g (1.25-1.5 g /kg) Fluid: 1 ml/kcal Nutrition Intervention Change Diet Order: Continue current TF Nutrition Support: Vital HP at 65ml/hr with 50ml water flush q4h. For hyponatremia flush with 50 ml q6h. Kcal 1,560 Protein (gm) 136 Fluid (mL) 1,304 Goal #1 TF tolerance Goal #2 TF (at goal rate) to meet at least 75% energy and pro needs Anticipated Discharge Needs: Unable to determine at this time Follow-Up By: 07/23/20 Additional Comments F/U for TF tolerance
--- NOTE | 2020-07-22 18:42 | XRay Report ---
CHEST 1 VIEW 07/22/2020 5:32 PM INDICATION / CLINICAL INFORMATION: pneumothorax. COMPARISON: 07/21/2020 FINDINGS: SUPPORT DEVICES: Stable, satisfactory device positioning. HEART / MEDIASTINUM: Stable. LUNGS / PLEURA: Stable patchy bilateral opacities. No pneumothorax. ADDITIONAL FINDINGS: No significant additional findings. IMPRESSION: 1. No significant change. Signer Name: Lance Lynch MD Signed: 07/22/2020 6:38 PM Workstation Name: [id number]
--- NOTE | 2020-07-23 04:24 | XRay Report ---
CHEST 1 VIEW INDICATION / CLINICAL INFORMATION: hx of pneumothorax. COMPARISON: 07/22/2020 FINDINGS: SUPPORT DEVICES: Right chest tube remains in stable position. HEART / MEDIASTINUM: No significant abnormality. LUNGS / PLEURA: Scattered bilateral pulmonary opacities are unchanged in appearance. No pneumothorax. ADDITIONAL FINDINGS: No significant additional findings. IMPRESSION: 1. Stable appearance of the chest radiograph. Signer Name: Nany Hancock MD Signed: 07/23/2020 4:20 AM Workstation Name: [id number]
[2020-07-23] MEDS: CEFEPIME/NS 2 GM/100 ML 2 GM/100 ML BAG IV SCH ×3 (05:04→20:44)
[2020-07-23 06:23] LABS: Basophils % (Auto) 0.2 % (0.0-1.8); Eosinophils # (Auto) 0.3 K/mm3 (0.0-0.4); Eosinophils % (Auto) 2.2 % (0.0-4.3); Hematocrit 33.9 % (35.5-45.6); Hemoglobin 10.9 gm/dl (11.8-15.2); Lymphocytes # (Auto) 2.4 K/mm3 (1.2-5.4); Lymphocytes % (Auto) 19.5 % (13.4-35.0); Mean Corpuscular HGB Conc 32 % (32-34); Mean Corpuscular Volume 99 fl (84-94); Monocytes # (Auto) 1.2 K/mm3 (0.0-0.8); Platelet Count 386 K/mm3 (140-440); Red Blood Count 3.44 M/mm3 (3.65-5.03); Red Cell Distribution Width 16.9 % (13.2-15.2)
[2020-07-23] MEDS: INSULIN LISPRO 100 UNIT/ML VIAL 3 mL SUB-Q SCH ×3 (07:37→17:44)
[2020-07-23 07:49] LABS: BUN/Creatinine Ratio 28; Blood Urea Nitrogen 11 mg/dL (9-20)
[2020-07-23 07:50] LABS: Alanine Aminotransferase 55 units/L (7-56); Albumin 3.5 g/dL (3.9-5); Calcium 9.2 mg/dL (8.4-10.2); Hemolysis Index 2
[2020-07-23] MEDS: MIDODRINE 5 MG TAB PO SCH ×3 (08:54→15:28)
--- NOTE | 2020-07-23 09:38 | Progress Note ---
Subjective - Reason for Consult Consult date: 07/23/20 Reason for consult: delirium - Chief Complaint Chief complaint: Nursing staff states patient been resting comfortably The patient was seen today, he is a/o x 2. He is calm, cooperative and pleasant. He states he feels "alright" He also says he slept good. The patient denies SI/HI or hallucinations of any kind. MENTAL STATUS EXAMINATION General Appearance and Behavior: Age appropriate, good hygiene, wearing appropriate clothes, cooperative polite with questioning. Cooperation: engaged Psychomotor Behavior: Psychomotor normal Mood: alright Affect and affective range: congruent with mood Thought Process: logical Thought Content: within reality Speech: Low volume, Regular rate and rhythm, Intellectual Functioning: improved Suicidal Ideation: none Homicidal Ideation: none Impulse Control: Unimpaired Insight and Judgment: unimpaired Memory: memory improved Attention: alert and oriented Assessment and Plan (1) Delirium due to another medical condition (F05) Current Visit: Yes Status: Acute Treatment Continue current medications Risks, benefits and alternatives of medications discussed with the patient, questions answered and consent obtained from patient. PSYCHOTHERAPY: Supportive psychotherapy provided MEDICAL: Per primary team DELIRIUM PRECAUTIONS: Please re-orient patient frequently, keep lights on during the day, and minimize benzodiazepines and opiates as these medications could worsen patient's confusion. 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 Case discussed with Dr. Foster who agrees with current disposition Will continue to follow to monitor psych progress and med management. Thank you for the consult. Please contact with any questions and/or concerns. Mental Status Exam - Vital signs Last Vital Signs Temp 98.6 F 07/23/20 04:00 Pulse 105 H 07/23/20 06:00 Resp 35 H 07/23/20 06:00 BP 110/80 07/23/20 06:00 Pulse Ox 98 07/23/20 07:57
[2020-07-23] MEDS: POTASSIUM CHLORIDE 20 MEQ PACKET FEEDTUBE SCH ×3 (10:05→17:44)
[2020-07-23] MEDS: QUEtiapine 200 MG TAB PO SCH (10:05)
[2020-07-23] MEDS: PHENobarbital 32.4 MG TAB PO SCH ×2 (10:05→22:13)
[2020-07-23] MEDS: DOCUSATE SODIUM 100 MG/10 ML ORAL LIQD PO SCH ×2 (10:05→22:15)
[2020-07-23] MEDS: FOLIC ACID 1 MG TAB PO SCH (10:05)
[2020-07-23] MEDS: LANSOPRAZOLE 30 MG SOLUTAB FEEDTUBE SCH (10:05)
[2020-07-23] MEDS: METOPROLOL TARTRATE 25 MG TAB PO SCH ×2 (10:05→22:14)
[2020-07-23] MEDS: methylPREDNISolone Sod Succinate 40 MG/1 ML INJ IV SCH (10:05)
[2020-07-23] MEDS: ENOXAPARIN 30 MG/0.3 ML INJ SUB-Q SCH ×2 (10:06→22:08)
[2020-07-23] MEDS: ENOXAPARIN 80 MG/0.8 ML INJ SUB-Q SCH ×2 (10:06→22:08)
[2020-07-23] MEDS: guaiFENesin ER 600 MG TAB PO SCH ×2 (10:08→22:13)
[2020-07-23] MEDS ORDERED: MAGNESIUM SULFATE 2 GM/50 ML BAG IV ONE (14:00)
--- NOTE | 2020-07-23 14:14 | Progress Note ---
Assessment and Plan Acute hypoxemic respiratory failure due to COVID-19 Severe Sepsis Bilateral pneumonia Acute kidney injury (SEN) with acute tubular necrosis (ATN) Alcohol dependence Elevated liver function tests - Surgery to pull chest tube (assistance in patient care appreciated) - continue to wean supplemental oxygen for target O2 sat's > 92% acutely - continue care as below otherwise; - Psychiatry input appreciated - continue BIPAP scheduled qhs with prn daytime use - continue bid protonix - continue bowel regimen - aspiration precautions - continue bronchodilators with pulmonary hygiene per RT - accuchecks with glycemic control per SSI for target blood glucose of < 180 mg/dL; avoid hypoglycemia - enteral nutritional support at goal rate as tolerated - repeat COVID-19 testing is negative X 2 - continue Zinc & Vit C supplementaion - wean systemic steroids for Asthma / severe COVID infection - continue empiric full dose anticoagulation re: elevated d-dimers / hypercoagulable state - completed remdesivir dosing (total 5 days) - empiric AB's coverage per ID rec's - avoid nephrotoxins, renally dose all medications - continue to avoid benzodiazepine's, reduce the possibility of delirium - continue wound care per RN / WCN - prn analgesia per CPOT score - Maintenance of sleep-wake cycle, avoid delirium - continue to avoid benzodiazepine's, reduce the possibility of delirium - aspiration precautions - G.I. & VTE prophylaxis - PT/OT/ROM exercises - continue mobility protocols for pressure ulcer prophylaxis - Monitor hemodynamics closely - continue other care per attending / other consultants - discharge planning ongoing concurrently - transfer to [facility] ok .... Re-evaluate in am & prn CONDITION: FAIR PROGNOSIS: GUARDED CODE STATUS: FULL CODE I have spent ( >35 ) minutes with the patient w/ >50% of the time spent counseling and/or coordinating care for this patient. Counseling topics and/or how time was spent coordinating patient's care is outlined in the impression and plan above. Subjective Date of service: 07/23/20 Principal diagnosis: Ac hypoxemic resp failure; COVID-19; Severe Sepsis; Shaggy PNA; Alcohol Abuse Interval history: Patient is seen today for: Acute hypoxemic respiratory failure due to COVID-19; Severe Sepsis; Bilateral pneumonia; Alcohol dependence; Elevated liver function tests Seen and examined at bedside; 24hour events reviewed; nursing and respiratory c are staff consulted; no adverse overnight events reported to me; resting in bed; denies acute chest pain or increased SOB; repeat CXR this am without recurrent PTX; no new issues otherwise and FiO2 down to 55% Objective Vital Signs - 12hr 07/23/20 07/23/20 07/23/20 03:00 04:00 05:00 Temperature 98.6 F Pulse Rate 102 H 108 H 103 H Pulse Rate [ 108 H From Monitor] Respiratory 22 35 H 30 H Rate Blood Pressure 114/72 109/71 110/80 O2 Sat by Pulse 92 95 98 Oximetry 07/23/20 07/23/20 07/23/20 05:33 06:00 07:00 Temperature Pulse Rate 108 H 105 H 97 H Pulse Rate [ From Monitor] Respiratory 40 H 35 H 20 Rate Blood Pressure 110/80 110/80 131/81 O2 Sat by Pulse 98 90 99 Oximetry 07/23/20 07/23/20 07/23/20 07:57 08:00 09:00 Temperature 98 F Pulse Rate 106 H 116 H Pulse Rate [ 100 H From Monitor] Respiratory 22 25 H Rate Blood Pressure 125/80 132/84 O2 Sat by Pulse 98 93 92 Oximetry 07/23/20 07/23/20 07/23/20 10:00 10:05 11:00 Temperature Pulse Rate 120 H 120 H 130 H Pulse Rate [ From Monitor] Respiratory 25 H 28 H Rate Blood Pressure 123/73 123/73 114/79 O2 Sat by Pulse 93 89 Oximetry 07/23/20 12:00 Temperature 97.7 F Pulse Rate 99 H Pulse Rate [ 117 H From Monitor] Respiratory 18 Rate Blood Pressure 110/70 O2 Sat by Pulse 94 Oximetry Constitutional: no acute distress, other (middle aged obese male with mildly inc reased respiratory effort at rest ) Eyes: non-icteric ENT: oropharynx moist, other (extubated) Neck: supple, no JVD Effort: mildly labored Ascultation: Bilateral: diminished breath sounds, rhonchi (scant), other (r. chest tube) Percussion: Bilateral: not dull Cardiovascular: regular rate and rhythm, other (No R/M) Gastrointestinal: normoactive bowel sounds, soft, non-tender, non-distended (protuberant), other (distended and firm) Integumentary: normal Extremities: no cyanosis, no edema, pulses normal, no ischemia or petechiae Neurologic: non-focal exam (non focal grossly; weak), pupils equal and round, CN II-XII normal, motor strength normal and (very weak ) Psychiatric: mood appropriate, affect normal CBC and BMP: 07/24/20 05:05 07/24/20 05:05 ABG, PT/INR, D-dimer: ABG ABG pH 7.477 (7.320-7.450) H 07/13/20 13:52 POC ABG pCO2 54.4 mmHg (32.0-48.0) H 07/13/20 13:52 ABG pCO2 53.1 mm Hg 07/08/20 Unknown POC ABG pO2 126.8 mmHg (83-108) H 07/13/20 13:52 ABG pO2 75.3 mm Hg (80.0-90.0) L 07/08/20 Unknown POC ABG HCO3 39.3 07/13/20 13:52 ABG O2 Saturation 96.5 % (95.0-99.0) 07/08/20 Unknown PT/INR, D-dimer PT 11.8 Sec. (12.2-14.9) L 06/22/20 14:29 INR 0.88 (0.87-1.13) 06/22/20 14:29 D-Dimer 1887.82 ng/mlDDU (0-234) H 05/20/20 08:16 Abnormal lab findings: Abnormal Labs 05/09/20 05/09/20 05/09/20 12:59 12:59 12:59 WBC 11.8 H RBC Hgb Hct MCV 96 H MCH 34 H MCHC 35 H RDW Lymph % (Auto) 6.9 L [place] % (Auto) Lymph # (Auto) 0.8 L [place] # (Auto) Baso # (Auto) Seg Neutrophils % 87.5 H Seg Neuts % (Manual) Lymphocytes % (Manual) Nucleated RBC % Seg Neutrophils # 10.3 H Seg Neutrophils # Man Lymphocytes # (Manual) Monocytes # (Manual) Eosinophils # (Manual) PT INR APTT D-Dimer Heparin Anti-Xa Level ABG pH POC ABG pCO2 POC ABG pO2 ABG pO2 ABG HCO3 ABG O2 Saturation ABG Base Excess ABG Hemoglobin ABG Oxyhemoglobin ABG Sodium ABG Potassium ABG Chloride ABG Glucose Oxyhemoglobin Carboxyhemoglobin Sodium 130 L Potassium 3.5 L Chloride 86.4 L Carbon Dioxide BUN 33 H Creatinine 2.3 H Glucose 156 H POC Glucose Lactic Acid Calcium Magnesium Ferritin Total Bilirubin 3.40 H Direct Bilirubin 1.7 H AST 385 H ALT 134 H Alkaline Phosphatase Lactate Dehydrogenase C-Reactive Protein Total Protein Albumin 3.0 L Triglycerides Lipase Arterial Blood Glucose Arterial Blood Ionized Calcium Urine WBC (Auto) Coronavirus (PCR) SARS-CoV-2 IgG Ab Crossmatch 05/09/20 05/09/20 05/09/20 12:59 12:59 12:59 WBC RBC Hgb Hct MCV MCH MCHC RDW Lymph % (Auto) [place] % (Auto) Lymph # (Auto) [place] # (Auto) Baso # (Auto) Seg Neutrophils % Seg Neuts % (Manual) Lymphocytes % (Manual) Nucleated RBC % Seg Neutrophils # Seg Neutrophils # Man Lymphocytes # (Manual) Monocytes # (Manual) Eosinophils # (Manual) PT INR APTT D-Dimer 3242.51 H Heparin Anti-Xa Level ABG pH POC ABG pCO2 POC ABG pO2 ABG pO2 ABG HCO3 ABG O2 Saturation ABG Base Excess ABG Hemoglobin ABG Oxyhemoglobin ABG Sodium ABG Potassium ABG Chloride ABG Glucose Oxyhemoglobin Carboxyhemoglobin Sodium Potassium Chloride Carbon Dioxide BUN Creatinine Glucose 158 H POC Glucose Lactic Acid 3.50 H* Calcium Magnesium Ferritin Total Bilirubin Direct Bilirubin AST ALT Alkaline Phosphatase Lactate Dehydrogenase 2166 H C-Reactive Protein 39.00 H Total Protein Albumin Triglycerides Lipase Arterial Blood Glucose Arterial Blood Ionized Calcium Urine WBC (Auto) Coronavirus (PCR) SARS-CoV-2 IgG Ab Crossmatch 05/09/20 05/09/20 05/09/20 12:59 14:20 14:20 WBC RBC Hgb Hct MCV MCH MCHC RDW Lymph % (Auto) [place] % (Auto) Lymph # (Auto) [place] # (Auto) Baso # (Auto) Seg Neutrophils % Seg Neuts % (Manual) Lymphocytes % (Manual) Nucleated RBC % Seg Neutrophils # Seg Neutrophils # Man Lymphocytes # (Manual) Monocytes # (Manual) Eosinophils # (Manual) PT INR APTT D-Dimer 2861.78 H Heparin Anti-Xa Level ABG pH POC ABG pCO2 POC ABG pO2 ABG pO2 ABG HCO3 ABG O2 Saturation ABG Base Excess ABG Hemoglobin ABG Oxyhemoglobin ABG Sodium ABG Potassium ABG Chloride ABG Glucose Oxyhemoglobin Carboxyhemoglobin Sodium Potassium Chloride Carbon Dioxide BUN Creatinine Glucose POC Glucose Lactic Acid 2.20 H* Calcium Magnesium Ferritin 57196.0 H Total Bilirubin Direct Bilirubin AST ALT Alkaline Phosphatase Lactate Dehydrogenase C-Reactive Protein Total Protein Albumin Triglycerides Lipase Arterial Blood Glucose Arterial Blood Ionized Calcium Urine WBC (Auto) Coronavirus (PCR) SARS-CoV-2 IgG Ab Crossmatch 05/09/20 05/09/20 05/09/20 14:20 14:20 15:56 WBC RBC Hgb Hct MCV MCH MCHC RDW Lymph % (Auto) [place] % (Auto) Lymph # (Auto) [place] # (Auto) Baso # (Auto) Seg Neutrophils % Seg Neuts % (Manual) Lymphocytes % (Manual) Nucleated RBC % Seg Neutrophils # Seg Neutrophils # Man Lymphocytes # (Manual) Monocytes # (Manual) Eosinophils # (Manual) PT INR APTT D-Dimer Heparin Anti-Xa Level ABG pH POC ABG pCO2 POC ABG pO2 57.3 L ABG pO2 ABG HCO3 ABG O2 Saturation ABG Base Excess ABG Hemoglobin ABG Oxyhemoglobin 86.3 L ABG Sodium 129.9 L ABG Potassium ABG Chloride ABG Glucose 146 H Oxyhemoglobin Carboxyhemoglobin Sodium Potassium Chloride Carbon Dioxide BUN Creatinine Glucose 143 H POC Glucose Lactic Acid Calcium Magnesium Ferritin 74563.0 H Total Bilirubin Direct Bilirubin AST ALT Alkaline Phosphatase Lactate Dehydrogenase 1953 H C-Reactive Protein 33.50 H Total Protein Albumin Triglycerides Lipase Arterial Blood Glucose 146 H Arterial Blood Ionized Calcium 3.9 L Urine WBC (Auto) Coronavirus (PCR) SARS-CoV-2 IgG Ab Crossmatch 05/10/20 05/10/20 05/10/20 10:32 10:32 18:50 WBC 15.4 H RBC Hgb Hct MCV 97 H MCH 33 H MCHC RDW 13.1 L Lymph % (Auto) [place] % (Auto) Lymph # (Auto) [place] # (Auto) Baso # (Auto) Seg Neutrophils % Seg Neuts % (Manual) 89.0 H Lymphocytes % (Manual) 8.0 L Nucleated RBC % Seg Neutrophils # Seg Neutrophils # Man 13.7 H Lymphocytes # (Manual) Monocytes # (Manual) Eosinophils # (Manual) PT INR APTT D-Dimer Heparin Anti-Xa Level ABG pH POC ABG pCO2 POC ABG pO2 ABG pO2 ABG HCO3 ABG O2 Saturation ABG Base Excess ABG Hemoglobin ABG Oxyhemoglobin ABG Sodium ABG Potassium ABG Chloride ABG Glucose Oxyhemoglobin Carboxyhemoglobin Sodium 136 L Potassium Chloride 97.4 L Carbon Dioxide BUN 37 H Creatinine 1.7 H Glucose 209 H POC Glucose Lactic Acid Calcium Magnesium Ferritin > 2000.0 H Total Bilirubin Direct Bilirubin AST ALT Alkaline Phosphatase Lactate Dehydrogenase C-Reactive Protein Total Protein Albumin Triglycerides Lipase Arterial Blood Glucose Arterial Blood Ionized Calcium Urine WBC (Auto) Coronavirus (PCR) SARS-CoV-2 IgG Ab Crossmatch 05/10/20 05/10/20 05/10/20 18:50 19:00 Unknown WBC RBC Hgb Hct MCV MCH MCHC RDW Lymph % (Auto) [place] % (Auto) Lymph # (Auto) [place] # (Auto) Baso # (Auto) Seg Neutrophils % Seg Neuts % (Manual) Lymphocytes % (Manual) Nucleated RBC % Seg Neutrophils # Seg Neutrophils # Man Lymphocytes # (Manual) Monocytes # (Manual) Eosinophils # (Manual) PT INR APTT D-Dimer > 61902 H Heparin Anti-Xa Level ABG pH POC ABG pCO2 POC ABG pO2 ABG pO2 ABG HCO3 ABG O2 Saturation ABG Base Excess ABG Hemoglobin ABG Oxyhemoglobin ABG Sodium ABG Potassium ABG Chloride ABG Glucose Oxyhemoglobin Carboxyhemoglobin Sodium Potassium Chloride Carbon Dioxide BUN Creatinine Glucose POC Glucose Lactic Acid Calcium Magnesium Ferritin Total Bilirubin Direct Bilirubin AST ALT Alkaline Phosphatase Lactate Dehydrogenase 1879 H C-Reactive Protein 24.80 H Total Protein Albumin Triglycerides Lipase Arterial Blood Glucose Arterial Blood Ionized Calcium Urine WBC (Auto) 11.0 H Coronavirus (PCR) SARS-CoV-2 IgG Ab Crossmatch 05/10/20 05/11/20 05/11/20 Unknown 07:30 07:30 WBC RBC Hgb Hct MCV MCH MCHC RDW Lymph % (Auto) [place] % (Auto) Lymph # (Auto) [place] # (Auto) Baso # (Auto) Seg Neutrophils % Seg Neuts % (Manual) Lymphocytes % (Manual) Nucleated RBC % Seg Neutrophils # Seg Neutrophils # Man Lymphocytes # (Manual) Monocytes # (Manual) Eosinophils # (Manual) PT INR APTT D-Dimer > 2000 H Heparin Anti-Xa Level ABG pH POC ABG pCO2 POC ABG pO2 ABG pO2 ABG HCO3 ABG O2 Saturation ABG Base Excess ABG Hemoglobin ABG Oxyhemoglobin ABG Sodium ABG Potassium ABG Chloride ABG Glucose Oxyhemoglobin Carboxyhemoglobin Sodium Potassium Chloride 96.3 L Carbon Dioxide BUN 36 H Creatinine Glucose 161 H POC Glucose Lactic Acid Calcium 8.3 L Magnesium Ferritin Total Bilirubin 1.50 H Direct Bilirubin 0.6 H AST 178 H ALT 111 H Alkaline Phosphatase Lactate Dehydrogenase C-Reactive Protein Total Protein Albumin 3.0 L Triglycerides Lipase Arterial Blood Glucose Arterial Blood Ionized Calcium Urine WBC (Auto) Coronavirus (PCR) Positive A SARS-CoV-2 IgG Ab Crossmatch 05/11/20 05/11/20 05/11/20 07:30 07:30 07:30 WBC RBC Hgb Hct MCV MCH MCHC RDW Lymph % (Auto) [place] % (Auto) Lymph # (Auto) [place] # (Auto) Baso # (Auto) Seg Neutrophils % Seg Neuts % (Manual) Lymphocytes % (Manual) Nucleated RBC % Seg Neutrophils # Seg Neutrophils # Man Lymphocytes # (Manual) Monocytes # (Manual) Eosinophils # (Manual) PT INR APTT D-Dimer Heparin Anti-Xa Level ABG pH POC ABG pCO2 POC ABG pO2 ABG pO2 ABG HCO3 ABG O2 Saturation ABG Base Excess ABG Hemoglobin ABG Oxyhemoglobin ABG Sodium ABG Potassium ABG Chloride ABG Glucose Oxyhemoglobin Carboxyhemoglobin Sodium Potassium Chloride Carbon Dioxide BUN Creatinine Glucose POC Glucose Lactic Acid Calcium Magnesium Ferritin 84641.0 H Total Bilirubin Direct Bilirubin AST ALT Alkaline Phosphatase Lactate Dehydrogenase 1523 H C-Reactive Protein 12.90 H Total Protein Albumin Triglycerides Lipase Arterial Blood Glucose Arterial Blood Ionized Calcium Urine WBC (Auto) Coronavirus (PCR) SARS-CoV-2 IgG Ab Reactive A Crossmatch 05/13/20 05/13/20 05/15/20 05:20 05:20 08:15 WBC RBC Hgb Hct MCV MCH MCHC RDW Lymph % (Auto) [place] % (Auto) Lymph # (Auto) [place] # (Auto) Baso # (Auto) Seg Neutrophils % Seg Neuts % (Manual) Lymphocytes % (Manual) Nucleated RBC % Seg Neutrophils # Seg Neutrophils # Man Lymphocytes # (Manual) Monocytes # (Manual) Eosinophils # (Manual) PT INR APTT D-Dimer > 10617 H 5318.28 H Heparin Anti-Xa Level ABG pH POC ABG pCO2 POC ABG pO2 ABG pO2 ABG HCO3 ABG O2 Saturation ABG Base Excess ABG Hemoglobin ABG Oxyhemoglobin ABG Sodium ABG Potassium ABG Chloride ABG Glucose Oxyhemoglobin Carboxyhemoglobin Sodium Potassium Chloride Carbon Dioxide 32 H BUN 30 H Creatinine Glucose 156 H POC Glucose Lactic Acid Calcium Magnesium 2.60 H Ferritin Total Bilirubin 1.40 H Direct Bilirubin AST 121 H ALT 119 H Alkaline Phosphatase Lactate Dehydrogenase 957 H C-Reactive Protein 4.00 H Total Protein Albumin 3.0 L Triglycerides Lipase Arterial Blood Glucose Arterial Blood Ionized Calcium Urine WBC (Auto) Coronavirus (PCR) SARS-CoV-2 IgG Ab Crossmatch 05/15/20 05/15/20 05/15/20 08:15 08:15 08:15 WBC 12.4 H RBC Hgb Hct MCV 98 H MCH 33 H MCHC RDW Lymph % (Auto) 9.7 L [place] % (Auto) Lymph # (Auto) [place] # (Auto) Baso # (Auto) Seg Neutrophils % 86.8 H Seg Neuts % (Manual) Lymphocytes % (Manual) Nucleated RBC % Seg Neutrophils # 10.8 H Seg Neutrophils # Man Lymphocytes # (Manual) Monocytes # (Manual) Eosinophils # (Manual) PT INR APTT D-Dimer Heparin Anti-Xa Level ABG pH POC ABG pCO2 POC ABG pO2 ABG pO2 ABG HCO3 ABG O2 Saturation ABG Base Excess ABG Hemoglobin ABG Oxyhemoglobin ABG Sodium ABG Potassium ABG Chloride ABG Glucose Oxyhemoglobin Carboxyhemoglobin Sodium Potassium Chloride 94.8 L Carbon Dioxide 32 H BUN 22 H Creatinine Glucose 115 H POC Glucose Lactic Acid Calcium 8.3 L Magnesium Ferritin 2494.0 H Total Bilirubin Direct Bilirubin AST 73 H ALT 121 H Alkaline Phosphatase Lactate Dehydrogenase 835 H C-Reactive Protein 3.40 H Total Protein 6.1 L Albumin 3.0 L Triglycerides Lipase Arterial Blood Glucose Arterial Blood Ionized Calcium Urine WBC (Auto) Coronavirus (PCR) SARS-CoV-2 IgG Ab Crossmatch 05/17/20 05/17/20 05/17/20 05:50 05:50 05:50 WBC RBC Hgb Hct MCV MCH MCHC RDW Lymph % (Auto) [place] % (Auto) Lymph # (Auto) [place] # (Auto) Baso # (Auto) Seg Neutrophils % Seg Neuts % (Manual) Lymphocytes % (Manual) Nucleated RBC % Seg Neutrophils # Seg Neutrophils # Man Lymphocytes # (Manual) Monocytes # (Manual) Eosinophils # (Manual) PT INR APTT D-Dimer 2911.42 H Heparin Anti-Xa Level ABG pH POC ABG pCO2 POC ABG pO2 ABG pO2 ABG HCO3 ABG O2 Saturation ABG Base Excess ABG Hemoglobin ABG Oxyhemoglobin ABG Sodium ABG Potassium ABG Chloride ABG Glucose Oxyhemoglobin Carboxyhemoglobin Sodium 136 L Potassium Chloride 96.0 L Carbon Dioxide 34 H BUN 22 H Creatinine Glucose 140 H POC Glucose Lactic Acid Calcium Magnesium Ferritin 2082.0 H Total Bilirubin Direct Bilirubin AST ALT 75 H Alkaline Phosphatase Lactate Dehydrogenase 601 H C-Reactive Protein 2.70 H Total Protein Albumin 2.9 L Triglycerides Lipase Arterial Blood Glucose Arterial Blood Ionized Calcium Urine WBC (Auto) Coronavirus (PCR) SARS-CoV-2 IgG Ab Crossmatch 05/17/20 05/18/20 05/20/20 05:50 12:22 08:16 WBC RBC Hgb Hct MCV 98 H MCH 33 H MCHC RDW Lymph % (Auto) 8.0 L [place] % (Auto) Lymph # (Auto) 0.8 L [place] # (Auto) Baso # (Auto) Seg Neutrophils % 89.3 H Seg Neuts % (Manual) Lymphocytes % (Manual) Nucleated RBC % Seg Neutrophils # 8.8 H Seg Neutrophils # Man Lymphocytes # (Manual) Monocytes # (Manual) Eosinophils # (Manual) PT INR APTT D-Dimer 1887.82 H Heparin Anti-Xa Level ABG pH POC ABG pCO2 POC ABG pO2 ABG pO2 ABG HCO3 ABG O2 Saturation ABG Base Excess ABG Hemoglobin ABG Oxyhemoglobin ABG Sodium ABG Potassium ABG Chloride ABG Glucose Oxyhemoglobin Carboxyhemoglobin Sodium Potassium Chloride Carbon Dioxide BUN Creatinine Glucose POC Glucose 178 H Lactic Acid Calcium Magnesium Ferritin Total Bilirubin Direct Bilirubin AST ALT Alkaline Phosphatase Lactate Dehydrogenase C-Reactive Protein Total Protein Albumin Triglycerides Lipase Arterial Blood Glucose Arterial Blood Ionized Calcium Urine WBC (Auto) Coronavirus (PCR) SARS-CoV-2 IgG Ab Crossmatch 05/20/20 05/20/20 05/21/20 08:16 08:16 21:10 WBC RBC Hgb Hct MCV MCH MCHC RDW Lymph % (Auto) [place] % (Auto) Lymph # (Auto) [place] # (Auto) Baso # (Auto) Seg Neutrophils % Seg Neuts % (Manual) Lymphocytes % (Manual) Nucleated RBC % Seg Neutrophils # Seg Neutrophils # Man Lymphocytes # (Manual) Monocytes # (Manual) Eosinophils # (Manual) PT INR APTT D-Dimer Heparin Anti-Xa Level ABG pH 7.483 H POC ABG pCO2 POC ABG pO2 ABG pO2 50.0 L ABG HCO3 27.0 H ABG O2 Saturation 86.2 L ABG Base Excess 3.7 H ABG Hemoglobin ABG Oxyhemoglobin ABG Sodium ABG Potassium ABG Chloride ABG Glucose Oxyhemoglobin 84.2 L Carboxyhemoglobin Sodium Potassium Chloride Carbon Dioxide BUN Creatinine Glucose POC Glucose Lactic Acid Calcium Magnesium Ferritin 1960.0 H Total Bilirubin Direct Bilirubin AST ALT Alkaline Phosphatase Lactate Dehydrogenase 705 H C-Reactive Protein 3.10 H Total Protein Albumin Triglycerides Lipase Arterial Blood Glucose Arterial Blood Ionized Calcium Urine WBC (Auto) Coronavirus (PCR) SARS-CoV-2 IgG Ab Crossmatch 05/22/20 05/22/20 05/22/20 04:01 07:53 07:53 WBC 19.2 H RBC Hgb Hct MCV 98 H MCH 34 H MCHC RDW Lymph % (Auto) [place] % (Auto) Lymph # (Auto) [place] # (Auto) Baso # (Auto) Seg Neutrophils % Seg Neuts % (Manual) 96.0 H Lymphocytes % (Manual) 1.0 L Nucleated RBC % Seg Neutrophils # Seg Neutrophils # Man 18.4 H Lymphocytes # (Manual) 0.2 L Monocytes # (Manual) Eosinophils # (Manual) PT INR APTT D-Dimer Heparin Anti-Xa Level ABG pH POC ABG pCO2 53.8 H POC ABG pO2 125.5 H ABG pO2 ABG HCO3 ABG O2 Saturation ABG Base Excess ABG Hemoglobin ABG Oxyhemoglobin ABG Sodium 131.8 L ABG Potassium 4.8 H ABG Chloride 94.0 L ABG Glucose 163 H Oxyhemoglobin Carboxyhemoglobin Sodium 131 L Potassium Chloride 93.4 L Carbon Dioxide BUN 40 H Creatinine Glucose 176 H POC Glucose Lactic Acid Calcium Magnesium 2.70 H Ferritin Total Bilirubin 1.80 H Direct Bilirubin AST 45 H ALT 116 H Alkaline Phosphatase 181 H Lactate Dehydrogenase C-Reactive Protein Total Protein Albumin 2.6 L Triglycerides Lipase Arterial Blood Glucose 163 H Arterial Blood Ionized Calcium 4.5 L Urine WBC (Auto) Coronavirus (PCR) SARS-CoV-2 IgG Ab Crossmatch 05/23/20 05/24/20 05/24/20 04:17 03:07 04:08 WBC RBC Hgb Hct MCV MCH MCHC RDW Lymph % (Auto) [place] % (Auto) Lymph # (Auto) [place] # (Auto) Baso # (Auto) Seg Neutrophils % Seg Neuts % (Manual) Lymphocytes % (Manual) Nucleated RBC % Seg Neutrophils # Seg Neutrophils # Man Lymphocytes # (Manual) Monocytes # (Manual) Eosinophils # (Manual) PT INR APTT D-Dimer Heparin Anti-Xa Level ABG pH 7.328 L POC ABG pCO2 POC ABG pO2 ABG pO2 72.8 L 73.4 L ABG HCO3 31.0 H 34.0 H ABG O2 Saturation 93.5 L ABG Base Excess 3.5 H 7.7 H ABG Hemoglobin 13.3 L 12.1 L ABG Oxyhemoglobin ABG Sodium ABG Potassium ABG Chloride ABG Glucose Oxyhemoglobin 91.5 L 94.3 L Carboxyhemoglobin Sodium Potassium Chloride Carbon Dioxide BUN Creatinine Glucose POC Glucose 155 H Lactic Acid Calcium Magnesium Ferritin Total Bilirubin Direct Bilirubin AST ALT Alkaline Phosphatase Lactate Dehydrogenase C-Reactive Protein Total Protein Albumin Triglycerides Lipase Arterial Blood Glucose Arterial Blood Ionized Calcium Urine WBC (Auto) Coronavirus (PCR) SARS-CoV-2 IgG Ab Crossmatch 05/24/20 05/24/20 05/24/20 09:33 12:21 17:52 WBC RBC Hgb Hct MCV MCH MCHC RDW Lymph % (Auto) [place] % (Auto) Lymph # (Auto) [place] # (Auto) Baso # (Auto) Seg Neutrophils % Seg Neuts % (Manual) Lymphocytes % (Manual) Nucleated RBC % Seg Neutrophils # Seg Neutrophils # Man Lymphocytes # (Manual) Monocytes # (Manual) Eosinophils # (Manual) PT INR APTT D-Dimer Heparin Anti-Xa Level ABG pH POC ABG pCO2 POC ABG pO2 ABG pO2 ABG HCO3 ABG O2 Saturation ABG Base Excess ABG Hemoglobin ABG Oxyhemoglobin ABG Sodium ABG Potassium ABG Chloride ABG Glucose Oxyhemoglobin Carboxyhemoglobin Sodium Potassium Chloride Carbon Dioxide 34 H D BUN 28 H Creatinine 0.7 L Glucose 168 H POC Glucose 173 H 164 H Lactic Acid Calcium Magnesium Ferritin Total Bilirubin Direct Bilirubin AST ALT Alkaline Phosphatase Lactate Dehydrogenase C-Reactive Protein Total Protein Albumin Triglycerides Lipase Arterial Blood Glucose Arterial Blood Ionized Calcium Urine WBC (Auto) Coronavirus (PCR) SARS-CoV-2 IgG Ab Crossmatch 05/24/20 05/25/20 05/25/20 23:47 04:29 05:46 WBC RBC Hgb Hct MCV MCH MCHC RDW Lymph % (Auto) [place] % (Auto) Lymph # (Auto) [place] # (Auto) Baso # (Auto) Seg Neutrophils % Seg Neuts % (Manual) Lymphocytes % (Manual) Nucleated RBC % Seg Neutrophils # Seg Neutrophils # Man Lymphocytes # (Manual) Monocytes # (Manual) Eosinophils # (Manual) PT INR APTT D-Dimer Heparin Anti-Xa Level ABG pH POC ABG pCO2 68.6 H POC ABG pO2 ABG pO2 ABG HCO3 ABG O2 Saturation ABG Base Excess ABG Hemoglobin ABG Oxyhemoglobin ABG Sodium ABG Potassium 4.7 H ABG Chloride ABG Glucose 226 H Oxyhemoglobin Carboxyhemoglobin Sodium Potassium Chloride Carbon Dioxide BUN Creatinine Glucose POC Glucose 171 H 201 H Lactic Acid Calcium Magnesium Ferritin Total Bilirubin Direct Bilirubin AST ALT Alkaline Phosphatase Lactate Dehydrogenase C-Reactive Protein Total Protein Albumin Triglycerides Lipase Arterial Blood Glucose 226 H Arterial Blood Ionized Calcium Urine WBC (Auto) Coronavirus (PCR) SARS-CoV-2 IgG Ab Crossmatch 05/25/20 05/25/20 05/25/20 08:37 08:37 12:38 WBC 12.0 H RBC 3.64 L Hgb Hct MCV 99 H MCH 33 H MCHC RDW Lymph % (Auto) [place] % (Auto) Lymph # (Auto) [place] # (Auto) Baso # (Auto) Seg Neutrophils % Seg Neuts % (Manual) Lymphocytes % (Manual) Nucleated RBC % Seg Neutrophils # Seg Neutrophils # Man Lymphocytes # (Manual) Monocytes # (Manual) Eosinophils # (Manual) PT INR APTT D-Dimer Heparin Anti-Xa Level ABG pH POC ABG pCO2 POC ABG pO2 ABG pO2 ABG HCO3 ABG O2 Saturation ABG Base Excess ABG Hemoglobin ABG Oxyhemoglobin ABG Sodium ABG Potassium ABG Chloride ABG Glucose Oxyhemoglobin Carboxyhemoglobin Sodium Potassium Chloride 97.3 L Carbon Dioxide 35 H BUN 25 H Creatinine 0.7 L Glucose 191 H POC Glucose 182 H Lactic Acid Calcium Magnesium Ferritin Total Bilirubin Direct Bilirubin AST ALT Alkaline Phosphatase Lactate Dehydrogenase C-Reactive Protein Total Protein Albumin Triglycerides Lipase Arterial Blood Glucose Arterial Blood Ionized Calcium Urine WBC (Auto) Coronavirus (PCR) SARS-CoV-2 IgG Ab Crossmatch 05/25/20 05/26/20 05/26/20 18:16 00:06 04:50 WBC RBC Hgb Hct MCV MCH MCHC RDW Lymph % (Auto) [place] % (Auto) Lymph # (Auto) [place] # (Auto) Baso # (Auto) Seg Neutrophils % Seg Neuts % (Manual) Lymphocytes % (Manual) Nucleated RBC % Seg Neutrophils # Seg Neutrophils # Man Lymphocytes # (Manual) Monocytes # (Manual) Eosinophils # (Manual) PT INR APTT D-Dimer Heparin Anti-Xa Level ABG pH POC ABG pCO2 POC ABG pO2 ABG pO2 221.5 H ABG HCO3 40.4 H ABG O2 Saturation 99.3 H ABG Base Excess 12.8 H ABG Hemoglobin 10.4 L ABG Oxyhemoglobin ABG Sodium ABG Potassium ABG Chloride ABG Glucose Oxyhemoglobin Carboxyhemoglobin Sodium Potassium Chloride Carbon Dioxide BUN Creatinine Glucose POC Glucose 176 H 152 H Lactic Acid Calcium Magnesium Ferritin Total Bilirubin Direct Bilirubin AST ALT Alkaline Phosphatase Lactate Dehydrogenase C-Reactive Protein Total Protein Albumin Triglycerides Lipase Arterial Blood Glucose Arterial Blood Ionized Calcium Urine WBC (Auto) Coronavirus (PCR) SARS-CoV-2 IgG Ab Crossmatch 05/26/20 05/26/20 05/26/20 06:11 07:51 07:51 WBC 13.4 H RBC 3.64 L Hgb Hct MCV 98 H MCH 33 H MCHC RDW Lymph % (Auto) [place] % (Auto) Lymph # (Auto) [place] # (Auto) Baso # (Auto) Seg Neutrophils % Seg Neuts % (Manual) Lymphocytes % (Manual) Nucleated RBC % Seg Neutrophils # Seg Neutrophils # Man Lymphocytes # (Manual) Monocytes # (Manual) Eosinophils # (Manual) PT INR APTT D-Dimer Heparin Anti-Xa Level ABG pH POC ABG pCO2 POC ABG pO2 ABG pO2 ABG HCO3 ABG O2 Saturation ABG Base Excess ABG Hemoglobin ABG Oxyhemoglobin ABG Sodium ABG Potassium ABG Chloride ABG Glucose Oxyhemoglobin Carboxyhemoglobin Sodium Potassium Chloride 96.6 L Carbon Dioxide 39 H BUN 29 H Creatinine 0.7 L Glucose 174 H POC Glucose 165 H Lactic Acid Calcium Magnesium Ferritin Total Bilirubin Direct Bilirubin AST ALT Alkaline Phosphatase Lactate Dehydrogenase C-Reactive Protein Total Protein Albumin Triglycerides Lipase Arterial Blood Glucose Arterial Blood Ionized Calcium Urine WBC (Auto) Coronavirus (PCR) SARS-CoV-2 IgG Ab Crossmatch 05/26/20 05/27/20 05/27/20 23:23 03:43 05:29 WBC RBC Hgb Hct MCV MCH MCHC RDW Lymph % (Auto) [place] % (Auto) Lymph # (Auto) [place] # (Auto) Baso # (Auto) Seg Neutrophils % Seg Neuts % (Manual) Lymphocytes % (Manual) Nucleated RBC % Seg Neutrophils # Seg Neutrophils # Man Lymphocytes # (Manual) Monocytes # (Manual) Eosinophils # (Manual) PT INR APTT D-Dimer Heparin Anti-Xa Level ABG pH 7.480 H POC ABG pCO2 52.4 H POC ABG pO2 61.4 L ABG pO2 ABG HCO3 ABG O2 Saturation ABG Base Excess ABG Hemoglobin ABG Oxyhemoglobin ABG Sodium 134.9 L ABG Potassium ABG Chloride 95.0 L ABG Glucose 221 H Oxyhemoglobin Carboxyhemoglobin Sodium Potassium Chloride Carbon Dioxide BUN Creatinine Glucose POC Glucose 169 H 227 H Lactic Acid Calcium Magnesium Ferritin Total Bilirubin Direct Bilirubin AST ALT Alkaline Phosphatase Lactate Dehydrogenase C-Reactive Protein Total Protein Albumin Triglycerides Lipase Arterial Blood Glucose 221 H Arterial Blood Ionized Calcium 4.5 L Urine WBC (Auto) Coronavirus (PCR) SARS-CoV-2 IgG Ab Crossmatch 05/27/20 05/27/20 05/27/20 07:19 12:18 13:50 WBC RBC Hgb Hct MCV MCH MCHC RDW Lymph % (Auto) [place] % (Auto) Lymph # (Auto) [place] # (Auto) Baso # (Auto) Seg Neutrophils % Seg Neuts % (Manual) Lymphocytes % (Manual) Nucleated RBC % Seg Neutrophils # Seg Neutrophils # Man Lymphocytes # (Manual) Monocytes # (Manual) Eosinophils # (Manual) PT INR APTT D-Dimer Heparin Anti-Xa Level ABG pH POC ABG pCO2 POC ABG pO2 ABG pO2 ABG HCO3 ABG O2 Saturation ABG Base Excess ABG Hemoglobin ABG Oxyhemoglobin ABG Sodium ABG Potassium ABG Chloride ABG Glucose Oxyhemoglobin Carboxyhemoglobin Sodium Potassium Chloride Carbon Dioxide BUN Creatinine Glucose POC Glucose 114 H 148 H Lactic Acid Calcium Magnesium Ferritin Total Bilirubin Direct Bilirubin AST ALT Alkaline Phosphatase Lactate Dehydrogenase C-Reactive Protein Total Protein Albumin Triglycerides 247 H Lipase Arterial Blood Glucose Arterial Blood Ionized Calcium Urine WBC (Auto) Coronavirus (PCR) SARS-CoV-2 IgG Ab Crossmatch 05/28/20 05/28/20 05/28/20 00:13 04:16 05:22 WBC RBC Hgb Hct MCV MCH MCHC RDW Lymph % (Auto) [place] % (Auto) Lymph # (Auto) [place] # (Auto) Baso # (Auto) Seg Neutrophils % Seg Neuts % (Manual) Lymphocytes % (Manual) Nucleated RBC % Seg Neutrophils # Seg Neutrophils # Man Lymphocytes # (Manual) Monocytes # (Manual) Eosinophils # (Manual) PT INR APTT D-Dimer Heparin Anti-Xa Level ABG pH POC ABG pCO2 64.4 H POC ABG pO2 60.5 L ABG pO2 ABG HCO3 ABG O2 Saturation ABG Base Excess ABG Hemoglobin ABG Oxyhemoglobin ABG Sodium ABG Potassium ABG Chloride 95.0 L ABG Glucose 209 H Oxyhemoglobin Carboxyhemoglobin Sodium Potassium Chloride Carbon Dioxide BUN Creatinine Glucose POC Glucose 155 H 186 H Lactic Acid Calcium Magnesium Ferritin Total Bilirubin Direct Bilirubin AST ALT Alkaline Phosphatase Lactate Dehydrogenase C-Reactive Protein Total Protein Albumin Triglycerides Lipase Arterial Blood Glucose 209 H Arterial Blood Ionized Calcium Urine WBC (Auto) Coronavirus (PCR) SARS-CoV-2 IgG Ab Crossmatch 05/28/20 05/28/20 05/29/20 12:45 17:39 00:37 WBC RBC Hgb Hct MCV MCH MCHC RDW Lymph % (Auto) [place] % (Auto) Lymph # (Auto) [place] # (Auto) Baso # (Auto) Seg Neutrophils % Seg Neuts % (Manual) Lymphocytes % (Manual) Nucleated RBC % Seg Neutrophils # Seg Neutrophils # Man Lymphocytes # (Manual) Monocytes # (Manual) Eosinophils # (Manual) PT INR APTT D-Dimer Heparin Anti-Xa Level ABG pH POC ABG pCO2 POC ABG pO2 ABG pO2 ABG HCO3 ABG O2 Saturation ABG Base Excess ABG Hemoglobin ABG Oxyhemoglobin ABG Sodium ABG Potassium ABG Chloride ABG Glucose Oxyhemoglobin Carboxyhemoglobin Sodium Potassium Chloride Carbon Dioxide BUN Creatinine Glucose POC Glucose 143 H 164 H 221 H Lactic Acid Calcium Magnesium Ferritin Total Bilirubin Direct Bilirubin AST ALT Alkaline Phosphatase Lactate Dehydrogenase C-Reactive Protein Total Protein Albumin Triglycerides Lipase Arterial Blood Glucose Arterial Blood Ionized Calcium Urine WBC (Auto) Coronavirus (PCR) SARS-CoV-2 IgG Ab Crossmatch 05/29/20 05/29/20 05/29/20 04:15 05:33 12:34 WBC RBC Hgb Hct MCV MCH MCHC RDW Lymph % (Auto) [place] % (Auto) Lymph # (Auto) [place] # (Auto) Baso # (Auto) Seg Neutrophils % Seg Neuts % (Manual) Lymphocytes % (Manual) Nucleated RBC % Seg Neutrophils # Seg Neutrophils # Man Lymphocytes # (Manual) Monocytes # (Manual) Eosinophils # (Manual) PT INR APTT D-Dimer Heparin Anti-Xa Level ABG pH 7.463 H POC ABG pCO2 56.3 H POC ABG pO2 81.2 L ABG pO2 ABG HCO3 ABG O2 Saturation ABG Base Excess ABG Hemoglobin ABG Oxyhemoglobin ABG Sodium ABG Potassium ABG Chloride 96.0 L ABG Glucose 194 H Oxyhemoglobin Carboxyhemoglobin Sodium Potassium Chloride Carbon Dioxide BUN Creatinine Glucose POC Glucose 133 H 221 H Lactic Acid Calcium Magnesium Ferritin Total Bilirubin Direct Bilirubin AST ALT Alkaline Phosphatase Lactate Dehydrogenase C-Reactive Protein Total Protein Albumin Triglycerides Lipase Arterial Blood Glucose 194 H Arterial Blood Ionized Calcium 4.5 L Urine WBC (Auto) Coronavirus (PCR) SARS-CoV-2 IgG Ab Crossmatch 05/29/20 05/30/20 05/30/20 18:07 00:12 05:38 WBC RBC Hgb Hct MCV MCH MCHC RDW Lymph % (Auto) [place] % (Auto) Lymph # (Auto) [place] # (Auto) Baso # (Auto) Seg Neutrophils % Seg Neuts % (Manual) Lymphocytes % (Manual) Nucleated RBC % Seg Neutrophils # Seg Neutrophils # Man Lymphocytes # (Manual) Monocytes # (Manual) Eosinophils # (Manual) PT INR APTT D-Dimer Heparin Anti-Xa Level ABG pH POC ABG pCO2 POC ABG pO2 ABG pO2 ABG HCO3 ABG O2 Saturation ABG Base Excess ABG Hemoglobin ABG Oxyhemoglobin ABG Sodium ABG Potassium ABG Chloride ABG Glucose Oxyhemoglobin Carboxyhemoglobin Sodium Potassium Chloride Carbon Dioxide BUN Creatinine Glucose POC Glucose 162 H 190 H 208 H Lactic Acid Calcium Magnesium Ferritin Total Bilirubin Direct Bilirubin AST ALT Alkaline Phosphatase Lactate Dehydrogenase C-Reactive Protein Total Protein Albumin Triglycerides Lipase Arterial Blood Glucose Arterial Blood Ionized Calcium Urine WBC (Auto) Coronavirus (PCR) SARS-CoV-2 IgG Ab Crossmatch 05/30/20 05/30/20 05/30/20 09:30 11:35 11:54 WBC 12.4 H RBC 3.48 L Hgb 11.3 L Hct 34.6 L MCV 99 H MCH 33 H MCHC RDW Lymph % (Auto) [place] % (Auto) Lymph # (Auto) [place] # (Auto) Baso # (Auto) Seg Neutrophils % Seg Neuts % (Manual) Lymphocytes % (Manual) Nucleated RBC % Seg Neutrophils # Seg Neutrophils # Man Lymphocytes # (Manual) Monocytes # (Manual) Eosinophils # (Manual) PT INR APTT D-Dimer Heparin Anti-Xa Level ABG pH 7.455 H POC ABG pCO2 57.5 H POC ABG pO2 81.5 L ABG pO2 ABG HCO3 ABG O2 Saturation ABG Base Excess ABG Hemoglobin ABG Oxyhemoglobin ABG Sodium ABG Potassium ABG Chloride 96.0 L ABG Glucose 204 H Oxyhemoglobin Carboxyhemoglobin Sodium Potassium Chloride Carbon Dioxide BUN Creatinine Glucose POC Glucose 183 H Lactic Acid Calcium Magnesium Ferritin Total Bilirubin Direct Bilirubin AST ALT Alkaline Phosphatase Lactate Dehydrogenase C-Reactive Protein Total Protein Albumin Triglycerides Lipase Arterial Blood Glucose 204 H Arterial Blood Ionized Calcium Urine WBC (Auto) Coronavirus (PCR) SARS-CoV-2 IgG Ab Crossmatch 05/30/20 05/31/20 05/31/20 18:01 00:10 03:22 WBC RBC Hgb Hct MCV MCH MCHC RDW Lymph % (Auto) [place] % (Auto) Lymph # (Auto) [place] # (Auto) Baso # (Auto) Seg Neutrophils % Seg Neuts % (Manual) Lymphocytes % (Manual) Nucleated RBC % Seg Neutrophils # Seg Neutrophils # Man Lymphocytes # (Manual) Monocytes # (Manual) Eosinophils # (Manual) PT INR APTT D-Dimer Heparin Anti-Xa Level ABG pH POC ABG pCO2 60.4 H POC ABG pO2 71.5 L ABG pO2 ABG HCO3 ABG O2 Saturation ABG Base Excess ABG Hemoglobin ABG Oxyhemoglobin ABG Sodium ABG Potassium ABG Chloride 96.0 L ABG Glucose 169 H Oxyhemoglobin Carboxyhemoglobin Sodium Potassium Chloride Carbon Dioxide BUN Creatinine Glucose POC Glucose 184 H 135 H Lactic Acid Calcium Magnesium Ferritin Total Bilirubin Direct Bilirubin AST ALT Alkaline Phosphatase Lactate Dehydrogenase C-Reactive Protein Total Protein Albumin Triglycerides Lipase Arterial Blood Glucose 169 H Arterial Blood Ionized Calcium 4.5 L Urine WBC (Auto) Coronavirus (PCR) SARS-CoV-2 IgG Ab Crossmatch 05/31/20 05/31/20 05/31/20 05:24 11:18 14:41 WBC RBC Hgb Hct MCV MCH MCHC RDW Lymph % (Auto) [place] % (Auto) Lymph # (Auto) [place] # (Auto) Baso # (Auto) Seg Neutrophils % Seg Neuts % (Manual) Lymphocytes % (Manual) Nucleated RBC % Seg Neutrophils # Seg Neutrophils # Man Lymphocytes # (Manual) Monocytes # (Manual) Eosinophils # (Manual) PT INR APTT D-Dimer Heparin Anti-Xa Level ABG pH POC ABG pCO2 POC ABG pO2 ABG pO2 ABG HCO3 ABG O2 Saturation ABG Base Excess ABG Hemoglobin ABG Oxyhemoglobin ABG Sodium ABG Potassium ABG Chloride ABG Glucose Oxyhemoglobin Carboxyhemoglobin Sodium Potassium Chloride 96.8 L Carbon Dioxide 37 H BUN 31 H Creatinine 0.6 L Glucose 213 H POC Glucose 164 H 208 H Lactic Acid Calcium Magnesium Ferritin Total Bilirubin Direct Bilirubin AST ALT Alkaline Phosphatase Lactate Dehydrogenase C-Reactive Protein Total Protein Albumin Triglycerides Lipase Arterial Blood Glucose Arterial Blood Ionized Calcium Urine WBC (Auto) Coronavirus (PCR) SARS-CoV-2 IgG Ab Crossmatch 05/31/20 05/31/20 06/01/20 17:37 23:47 03:48 WBC RBC Hgb Hct MCV MCH MCHC RDW Lymph % (Auto) [place] % (Auto) Lymph # (Auto) [place] # (Auto) Baso # (Auto) Seg Neutrophils % Seg Neuts % (Manual) Lymphocytes % (Manual) Nucleated RBC % Seg Neutrophils # Seg Neutrophils # Man Lymphocytes # (Manual) Monocytes # (Manual) Eosinophils # (Manual) PT INR APTT D-Dimer Heparin Anti-Xa Level ABG pH POC ABG pCO2 59.7 H POC ABG pO2 73.9 L ABG pO2 ABG HCO3 ABG O2 Saturation ABG Base Excess ABG Hemoglobin ABG Oxyhemoglobin ABG Sodium ABG Potassium ABG Chloride 95.0 L ABG Glucose 256 H Oxyhemoglobin Carboxyhemoglobin Sodium Potassium Chloride Carbon Dioxide BUN Creatinine Glucose POC Glucose 168 H 178 H Lactic Acid Calcium Magnesium Ferritin Total Bilirubin Direct Bilirubin AST ALT Alkaline Phosphatase Lactate Dehydrogenase C-Reactive Protein Total Protein Albumin Triglycerides Lipase Arterial Blood Glucose 256 H Arterial Blood Ionized Calcium Urine WBC (Auto) Coronavirus (PCR) SARS-CoV-2 IgG Ab Crossmatch 06/01/20 06/01/20 06/01/20 05:01 07:47 07:47 WBC 14.4 H RBC 3.46 L Hgb 11.1 L Hct 34.3 L MCV 99 H MCH MCHC RDW Lymph % (Auto) [place] % (Auto) Lymph # (Auto) [place] # (Auto) Baso # (Auto) Seg Neutrophils % Seg Neuts % (Manual) 86.0 H Lymphocytes % (Manual) 9.0 L Nucleated RBC % Seg Neutrophils # Seg Neutrophils # Man 12.4 H Lymphocytes # (Manual) Monocytes # (Manual) Eosinophils # (Manual) PT INR APTT D-Dimer Heparin Anti-Xa Level ABG pH POC ABG pCO2 POC ABG pO2 ABG pO2 ABG HCO3 ABG O2 Saturation ABG Base Excess ABG Hemoglobin ABG Oxyhemoglobin ABG Sodium ABG Potassium ABG Chloride ABG Glucose Oxyhemoglobin Carboxyhemoglobin Sodium Potassium Chloride Carbon Dioxide BUN Creatinine Glucose POC Glucose 197 H Lactic Acid Calcium Magnesium Ferritin Total Bilirubin Direct Bilirubin AST ALT Alkaline Phosphatase Lactate Dehydrogenase C-Reactive Protein Total Protein Albumin Triglycerides 244 H Lipase Arterial Blood Glucose Arterial Blood Ionized Calcium Urine WBC (Auto) Coronavirus (PCR) SARS-CoV-2 IgG Ab Crossmatch 06/01/20 06/01/20 06/01/20 07:47 11:46 18:15 WBC RBC Hgb Hct MCV MCH MCHC RDW Lymph % (Auto) [place] % (Auto) Lymph # (Auto) [place] # (Auto) Baso # (Auto) Seg Neutrophils % Seg Neuts % (Manual) Lymphocytes % (Manual) Nucleated RBC % Seg Neutrophils # Seg Neutrophils # Man Lymphocytes # (Manual) Monocytes # (Manual) Eosinophils # (Manual) PT INR APTT D-Dimer Heparin Anti-Xa Level ABG pH POC ABG pCO2 POC ABG pO2 ABG pO2 ABG HCO3 ABG O2 Saturation ABG Base Excess ABG Hemoglobin ABG Oxyhemoglobin ABG Sodium ABG Potassium ABG Chloride ABG Glucose Oxyhemoglobin Carboxyhemoglobin Sodium Potassium Chloride 95.4 L Carbon Dioxide 35 H BUN 30 H Creatinine 0.5 L Glucose 214 H POC Glucose 181 H 221 H Lactic Acid Calcium Magnesium Ferritin Total Bilirubin Direct Bilirubin AST 54 H ALT 235 H Alkaline Phosphatase Lactate Dehydrogenase C-Reactive Protein Total Protein Albumin 2.9 L Triglycerides Lipase Arterial Blood Glucose Arterial Blood Ionized Calcium Urine WBC (Auto) Coronavirus (PCR) SARS-CoV-2 IgG Ab Crossmatch 06/01/20 06/02/20 06/02/20 23:12 04:00 05:31 WBC RBC Hgb Hct MCV MCH MCHC RDW Lymph % (Auto) [place] % (Auto) Lymph # (Auto) [place] # (Auto) Baso # (Auto) Seg Neutrophils % Seg Neuts % (Manual) Lymphocytes % (Manual) Nucleated RBC % Seg Neutrophils # Seg Neutrophils # Man Lymphocytes # (Manual) Monocytes # (Manual) Eosinophils # (Manual) PT INR APTT D-Dimer Heparin Anti-Xa Level ABG pH 7.465 H POC ABG pCO2 POC ABG pO2 ABG pO2 203.4 H ABG HCO3 41.2 H ABG O2 Saturation 99.3 H ABG Base Excess 15.1 H ABG Hemoglobin 11.5 L ABG Oxyhemoglobin ABG Sodium ABG Potassium ABG Chloride ABG Glucose Oxyhemoglobin Carboxyhemoglobin Sodium Potassium Chloride Carbon Dioxide BUN Creatinine Glucose POC Glucose 197 H 184 H Lactic Acid Calcium Magnesium Ferritin Total Bilirubin Direct Bilirubin AST ALT Alkaline Phosphatase Lactate Dehydrogenase C-Reactive Protein Total Protein Albumin Triglycerides Lipase Arterial Blood Glucose Arterial Blood Ionized Calcium Urine WBC (Auto) Coronavirus (PCR) SARS-CoV-2 IgG Ab Crossmatch 06/02/20 06/02/20 06/02/20 11:49 18:06 23:00 WBC RBC Hgb Hct MCV MCH MCHC RDW Lymph % (Auto) [place] % (Auto) Lymph # (Auto) [place] # (Auto) Baso # (Auto) Seg Neutrophils % Seg Neuts % (Manual) Lymphocytes % (Manual) Nucleated RBC % Seg Neutrophils # Seg Neutrophils # Man Lymphocytes # (Manual) Monocytes # (Manual) Eosinophils # (Manual) PT INR APTT D-Dimer Heparin Anti-Xa Level ABG pH POC ABG pCO2 POC ABG pO2 ABG pO2 ABG HCO3 ABG O2 Saturation ABG Base Excess ABG Hemoglobin ABG Oxyhemoglobin ABG Sodium ABG Potassium ABG Chloride ABG Glucose Oxyhemoglobin Carboxyhemoglobin Sodium Potassium Chloride Carbon Dioxide BUN Creatinine Glucose POC Glucose 195 H 177 H 228 H Lactic Acid Calcium Magnesium Ferritin Total Bilirubin Direct Bilirubin AST ALT Alkaline Phosphatase Lactate Dehydrogenase C-Reactive Protein Total Protein Albumin Triglycerides Lipase Arterial Blood Glucose Arterial Blood Ionized Calcium Urine WBC (Auto) Coronavirus (PCR) SARS-CoV-2 IgG Ab Crossmatch 06/03/20 06/03/20 06/03/20 03:58 05:19 12:21 WBC RBC Hgb Hct MCV MCH MCHC RDW Lymph % (Auto) [place] % (Auto) Lymph # (Auto) [place] # (Auto) Baso # (Auto) Seg Neutrophils % Seg Neuts % (Manual) Lymphocytes % (Manual) Nucleated RBC % Seg Neutrophils # Seg Neutrophils # Man Lymphocytes # (Manual) Monocytes # (Manual) Eosinophils # (Manual) PT INR APTT D-Dimer Heparin Anti-Xa Level ABG pH POC ABG pCO2 POC ABG pO2 ABG pO2 171.0 H ABG HCO3 42.8 H ABG O2 Saturation ABG Base Excess 15.6 H ABG Hemoglobin 12.3 L ABG Oxyhemoglobin ABG Sodium ABG Potassium ABG Chloride ABG Glucose Oxyhemoglobin Carboxyhemoglobin Sodium Potassium Chloride Carbon Dioxide BUN Creatinine Glucose POC Glucose 122 H 207 H Lactic Acid Calcium Magnesium Ferritin Total Bilirubin Direct Bilirubin AST ALT Alkaline Phosphatase Lactate Dehydrogenase C-Reactive Protein Total Protein Albumin Triglycerides Lipase Arterial Blood Glucose Arterial Blood Ionized Calcium Urine WBC (Auto) Coronavirus (PCR) SARS-CoV-2 IgG Ab Crossmatch 06/03/20 06/03/20 06/04/20 17:27 23:50 03:55 WBC RBC Hgb Hct MCV MCH MCHC RDW Lymph % (Auto) [place] % (Auto) Lymph # (Auto) [place] # (Auto) Baso # (Auto) Seg Neutrophils % Seg Neuts % (Manual) Lymphocytes % (Manual) Nucleated RBC % Seg Neutrophils # Seg Neutrophils # Man Lymphocytes # (Manual) Monocytes # (Manual) Eosinophils # (Manual) PT INR APTT D-Dimer Heparin Anti-Xa Level ABG pH POC ABG pCO2 POC ABG pO2 ABG pO2 117.2 H ABG HCO3 42.4 H ABG O2 Saturation ABG Base Excess 15.3 H ABG Hemoglobin 10.5 L ABG Oxyhemoglobin ABG Sodium ABG Potassium ABG Chloride ABG Glucose Oxyhemoglobin Carboxyhemoglobin Sodium Potassium Chloride Carbon Dioxide BUN Creatinine Glucose POC Glucose 157 H 214 H Lactic Acid Calcium Magnesium Ferritin Total Bilirubin Direct Bilirubin AST ALT Alkaline Phosphatase Lactate Dehydrogenase C-Reactive Protein Total Protein Albumin Triglycerides Lipase Arterial Blood Glucose Arterial Blood Ionized Calcium Urine WBC (Auto) Coronavirus (PCR) SARS-CoV-2 IgG Ab Crossmatch 06/04/20 06/04/20 06/04/20 05:49 11:41 17:30 WBC RBC Hgb Hct MCV MCH MCHC RDW Lymph % (Auto) [place] % (Auto) Lymph # (Auto) [place] # (Auto) Baso # (Auto) Seg Neutrophils % Seg Neuts % (Manual) Lymphocytes % (Manual) Nucleated RBC % Seg Neutrophils # Seg Neutrophils # Man Lymphocytes # (Manual) Monocytes # (Manual) Eosinophils # (Manual) PT INR APTT D-Dimer Heparin Anti-Xa Level ABG pH POC ABG pCO2 POC ABG pO2 ABG pO2 ABG HCO3 ABG O2 Saturation ABG Base Excess ABG Hemoglobin ABG Oxyhemoglobin ABG Sodium ABG Potassium ABG Chloride ABG Glucose Oxyhemoglobin Carboxyhemoglobin Sodium Potassium Chloride Carbon Dioxide BUN Creatinine Glucose POC Glucose 149 H 233 H 156 H Lactic Acid Calcium Magnesium Ferritin Total Bilirubin Direct Bilirubin AST ALT Alkaline Phosphatase Lactate Dehydrogenase C-Reactive Protein Total Protein Albumin Triglycerides Lipase Arterial Blood Glucose Arterial Blood Ionized Calcium Urine WBC (Auto) Coronavirus (PCR) SARS-CoV-2 IgG Ab Crossmatch 06/04/20 06/04/20 06/04/20 19:01 20:53 23:41 WBC RBC 3.18 L Hgb 10.8 L Hct 31.8 L MCV 100 H MCH 34 H MCHC RDW Lymph % (Auto) [place] % (Auto) Lymph # (Auto) [place] # (Auto) Baso # (Auto) Seg Neutrophils % Seg Neuts % (Manual) 86.0 H Lymphocytes % (Manual) 10.0 L Nucleated RBC % 1.0 H Seg Neutrophils # Seg Neutrophils # Man 8.5 H Lymphocytes # (Manual) 1.0 L Monocytes # (Manual) Eosinophils # (Manual) PT INR APTT D-Dimer Heparin Anti-Xa Level ABG pH POC ABG pCO2 POC ABG pO2 ABG pO2 ABG HCO3 ABG O2 Saturation ABG Base Excess ABG Hemoglobin ABG Oxyhemoglobin ABG Sodium ABG Potassium ABG Chloride ABG Glucose Oxyhemoglobin Carboxyhemoglobin Sodium Potassium 3.4 L D Chloride 96.5 L Carbon Dioxide 41 H* BUN 27 H Creatinine 0.5 L Glucose 173 H POC Glucose 217 H Lactic Acid Calcium Magnesium Ferritin Total Bilirubin Direct Bilirubin AST ALT Alkaline Phosphatase Lactate Dehydrogenase C-Reactive Protein Total Protein Albumin Triglycerides Lipase Arterial Blood Glucose Arterial Blood Ionized Calcium Urine WBC (Auto) Coronavirus (PCR) SARS-CoV-2 IgG Ab Crossmatch 06/05/20 06/05/20 06/05/20 06:05 11:54 12:35 WBC RBC Hgb Hct MCV MCH MCHC RDW Lymph % (Auto) [place] % (Auto) Lymph # (Auto) [place] # (Auto) Baso # (Auto) Seg Neutrophils % Seg Neuts % (Manual) Lymphocytes % (Manual) Nucleated RBC % Seg Neutrophils # Seg Neutrophils # Man Lymphocytes # (Manual) Monocytes # (Manual) Eosinophils # (Manual) PT INR APTT D-Dimer Heparin Anti-Xa Level ABG pH POC ABG pCO2 POC ABG pO2 ABG pO2 127.9 H ABG HCO3 41.1 H ABG O2 Saturation ABG Base Excess 13.0 H ABG Hemoglobin 13.4 L ABG Oxyhemoglobin ABG Sodium ABG Potassium ABG Chloride ABG Glucose Oxyhemoglobin Carboxyhemoglobin Sodium Potassium Chloride Carbon Dioxide BUN Creatinine Glucose POC Glucose 137 H 211 H Lactic Acid Calcium Magnesium Ferritin Total Bilirubin Direct Bilirubin AST ALT Alkaline Phosphatase Lactate Dehydrogenase C-Reactive Protein Total Protein Albumin Triglycerides Lipase Arterial Blood Glucose Arterial Blood Ionized Calcium Urine WBC (Auto) Coronavirus (PCR) SARS-CoV-2 IgG Ab Crossmatch 06/05/20 06/05/20 06/06/20 17:03 23:49 04:42 WBC RBC Hgb Hct MCV MCH MCHC RDW Lymph % (Auto) [place] % (Auto) Lymph # (Auto) [place] # (Auto) Baso # (Auto) Seg Neutrophils % Seg Neuts % (Manual) Lymphocytes % (Manual) Nucleated RBC % Seg Neutrophils # Seg Neutrophils # Man Lymphocytes # (Manual) Monocytes # (Manual) Eosinophils # (Manual) PT INR APTT D-Dimer Heparin Anti-Xa Level ABG pH POC ABG pCO2 56.1 H POC ABG pO2 52.5 L ABG pO2 ABG HCO3 ABG O2 Saturation ABG Base Excess ABG Hemoglobin 11.7 L ABG Oxyhemoglobin ABG Sodium ABG Potassium 3.3 L ABG Chloride 95.0 L ABG Glucose 156 H Oxyhemoglobin Carboxyhemoglobin Sodium Potassium Chloride Carbon Dioxide BUN Creatinine Glucose POC Glucose 159 H 194 H Lactic Acid Calcium Magnesium Ferritin Total Bilirubin Direct Bilirubin AST ALT Alkaline Phosphatase Lactate Dehydrogenase C-Reactive Protein Total Protein Albumin Triglycerides Lipase Arterial Blood Glucose 156 H Arterial Blood Ionized Calcium Urine WBC (Auto) Coronavirus (PCR) SARS-CoV-2 IgG Ab Crossmatch 06/06/20 06/06/20 06/06/20 05:57 12:06 17:38 WBC RBC Hgb Hct MCV MCH MCHC RDW Lymph % (Auto) [place] % (Auto) Lymph # (Auto) [place] # (Auto) Baso # (Auto) Seg Neutrophils % Seg Neuts % (Manual) Lymphocytes % (Manual) Nucleated RBC % Seg Neutrophils # Seg Neutrophils # Man Lymphocytes # (Manual) Monocytes # (Manual) Eosinophils # (Manual) PT INR APTT D-Dimer Heparin Anti-Xa Level ABG pH POC ABG pCO2 POC ABG pO2 ABG pO2 ABG HCO3 ABG O2 Saturation ABG Base Excess ABG Hemoglobin ABG Oxyhemoglobin ABG Sodium ABG Potassium ABG Chloride ABG Glucose Oxyhemoglobin Carboxyhemoglobin Sodium Potassium Chloride Carbon Dioxide BUN Creatinine Glucose POC Glucose 144 H 230 H 162 H Lactic Acid Calcium Magnesium Ferritin Total Bilirubin Direct Bilirubin AST ALT Alkaline Phosphatase Lactate Dehydrogenase C-Reactive Protein Total Protein Albumin Triglycerides Lipase Arterial Blood Glucose Arterial Blood Ionized Calcium Urine WBC (Auto) Coronavirus (PCR) SARS-CoV-2 IgG Ab Crossmatch 06/06/20 06/07/20 06/07/20 23:50 04:34 06:03 WBC RBC Hgb Hct MCV MCH MCHC RDW Lymph % (Auto) [place] % (Auto) Lymph # (Auto) [place] # (Auto) Baso # (Auto) Seg Neutrophils % Seg Neuts % (Manual) Lymphocytes % (Manual) Nucleated RBC % Seg Neutrophils # Seg Neutrophils # Man Lymphocytes # (Manual) Monocytes # (Manual) Eosinophils # (Manual) PT INR APTT D-Dimer Heparin Anti-Xa Level ABG pH 7.511 H POC ABG pCO2 53.5 H POC ABG pO2 114.5 H ABG pO2 ABG HCO3 ABG O2 Saturation ABG Base Excess ABG Hemoglobin 9.4 L ABG Oxyhemoglobin ABG Sodium 134.5 L ABG Potassium ABG Chloride 94.0 L ABG Glucose 186 H Oxyhemoglobin Carboxyhemoglobin Sodium Potassium Chloride Carbon Dioxide BUN Creatinine Glucose POC Glucose 181 H 155 H Lactic Acid Calcium Magnesium Ferritin Total Bilirubin Direct Bilirubin AST ALT Alkaline Phosphatase Lactate Dehydrogenase C-Reactive Protein Total Protein Albumin Triglycerides Lipase Arterial Blood Glucose 186 H Arterial Blood Ionized Calcium 4.5 L Urine WBC (Auto) Coronavirus (PCR) SARS-CoV-2 IgG Ab Crossmatch 06/07/20 06/07/20 06/07/20 13:41 14:58 14:58 WBC RBC 2.72 L Hgb 9.3 L Hct 27.2 L MCV 100 H MCH 34 H MCHC RDW Lymph % (Auto) [place] % (Auto) Lymph # (Auto) [place] # (Auto) Baso # (Auto) Seg Neutrophils % Seg Neuts % (Manual) Lymphocytes % (Manual) Nucleated RBC % Seg Neutrophils # Seg Neutrophils # Man Lymphocytes # (Manual) Monocytes # (Manual) Eosinophils # (Manual) PT INR APTT D-Dimer Heparin Anti-Xa Level ABG pH POC ABG pCO2 POC ABG pO2 ABG pO2 ABG HCO3 ABG O2 Saturation ABG Base Excess ABG Hemoglobin ABG Oxyhemoglobin ABG Sodium ABG Potassium ABG Chloride ABG Glucose Oxyhemoglobin Carboxyhemoglobin Sodium Potassium Chloride 93.5 L Carbon Dioxide 39 H BUN 22 H Creatinine 0.4 L Glucose 188 H POC Glucose 201 H Lactic Acid Calcium Magnesium Ferritin Total Bilirubin Direct Bilirubin AST 61 H ALT 273 H Alkaline Phosphatase Lactate Dehydrogenase C-Reactive Protein Total Protein 5.9 L Albumin 2.7 L Triglycerides Lipase Arterial Blood Glucose Arterial Blood Ionized Calcium Urine WBC (Auto) Coronavirus (PCR) SARS-CoV-2 IgG Ab Crossmatch 06/07/20 06/08/20 06/08/20 23:18 05:31 12:07 WBC RBC Hgb Hct MCV MCH MCHC RDW Lymph % (Auto) [place] % (Auto) Lymph # (Auto) [place] # (Auto) Baso # (Auto) Seg Neutrophils % Seg Neuts % (Manual) Lymphocytes % (Manual) Nucleated RBC % Seg Neutrophils # Seg Neutrophils # Man Lymphocytes # (Manual) Monocytes # (Manual) Eosinophils # (Manual) PT INR APTT D-Dimer Heparin Anti-Xa Level ABG pH POC ABG pCO2 POC ABG pO2 ABG pO2 ABG HCO3 ABG O2 Saturation ABG Base Excess ABG Hemoglobin ABG Oxyhemoglobin ABG Sodium ABG Potassium ABG Chloride ABG Glucose Oxyhemoglobin Carboxyhemoglobin Sodium Potassium Chloride Carbon Dioxide BUN Creatinine Glucose POC Glucose 214 H 129 H 179 H Lactic Acid Calcium Magnesium Ferritin Total Bilirubin Direct Bilirubin AST ALT Alkaline Phosphatase Lactate Dehydrogenase C-Reactive Protein Total Protein Albumin Triglycerides Lipase Arterial Blood Glucose Arterial Blood Ionized Calcium Urine WBC (Auto) Coronavirus (PCR) SARS-CoV-2 IgG Ab Crossmatch 06/08/20 06/08/20 06/09/20 18:18 23:35 05:42 WBC RBC Hgb Hct MCV MCH MCHC RDW Lymph % (Auto) [place] % (Auto) Lymph # (Auto) [place] # (Auto) Baso # (Auto) Seg Neutrophils % Seg Neuts % (Manual) Lymphocytes % (Manual) Nucleated RBC % Seg Neutrophils # Seg Neutrophils # Man Lymphocytes # (Manual) Monocytes # (Manual) Eosinophils # (Manual) PT INR APTT D-Dimer Heparin Anti-Xa Level ABG pH POC ABG pCO2 POC ABG pO2 ABG pO2 ABG HCO3 ABG O2 Saturation ABG Base Excess ABG Hemoglobin ABG Oxyhemoglobin ABG Sodium ABG Potassium ABG Chloride ABG Glucose Oxyhemoglobin Carboxyhemoglobin Sodium Potassium Chloride Carbon Dioxide BUN Creatinine Glucose POC Glucose 172 H 177 H 137 H Lactic Acid Calcium Magnesium Ferritin Total Bilirubin Direct Bilirubin AST ALT Alkaline Phosphatase Lactate Dehydrogenase C-Reactive Protein Total Protein Albumin Triglycerides Lipase Arterial Blood Glucose Arterial Blood Ionized Calcium Urine WBC (Auto) Coronavirus (PCR) SARS-CoV-2 IgG Ab Crossmatch 06/09/20 06/09/20 06/09/20 06:20 07:55 07:55 WBC 12.4 H RBC 3.26 L Hgb 11.1 L Hct 33.4 L D MCV 102 H MCH 34 H MCHC RDW Lymph % (Auto) [place] % (Auto) Lymph # (Auto) [place] # (Auto) Baso # (Auto) Seg Neutrophils % Seg Neuts % (Manual) Lymphocytes % (Manual) Nucleated RBC % Seg Neutrophils # Seg Neutrophils # Man Lymphocytes # (Manual) Monocytes # (Manual) Eosinophils # (Manual) PT INR APTT D-Dimer Heparin Anti-Xa Level ABG pH 7.466 H POC ABG pCO2 50.7 H POC ABG pO2 53.0 L ABG pO2 ABG HCO3 ABG O2 Saturation ABG Base Excess ABG Hemoglobin ABG Oxyhemoglobin ABG Sodium ABG Potassium 2.9 L ABG Chloride 93.0 L ABG Glucose 138 H Oxyhemoglobin Carboxyhemoglobin Sodium Potassium 3.0 L Chloride 92.3 L Carbon Dioxide 37 H BUN 21 H Creatinine 0.6 L Glucose 120 H POC Glucose Lactic Acid Calcium Magnesium Ferritin Total Bilirubin Direct Bilirubin AST ALT Alkaline Phosphatase Lactate Dehydrogenase C-Reactive Protein Total Protein Albumin Triglycerides Lipase Arterial Blood Glucose 138 H Arterial Blood Ionized Calcium 4.5 L Urine WBC (Auto) Coronavirus (PCR) SARS-CoV-2 IgG Ab Crossmatch 06/09/20 06/09/20 06/10/20 11:22 18:32 04:46 WBC RBC Hgb Hct MCV MCH MCHC RDW Lymph % (Auto) [place] % (Auto) Lymph # (Auto) [place] # (Auto) Baso # (Auto) Seg Neutrophils % Seg Neuts % (Manual) Lymphocytes % (Manual) Nucleated RBC % Seg Neutrophils # Seg Neutrophils # Man Lymphocytes # (Manual) Monocytes # (Manual) Eosinophils # (Manual) PT INR APTT D-Dimer Heparin Anti-Xa Level ABG pH 7.501 H POC ABG pCO2 POC ABG pO2 126.5 H ABG pO2 ABG HCO3 ABG O2 Saturation ABG Base Excess ABG Hemoglobin 10.3 L ABG Oxyhemoglobin ABG Sodium ABG Potassium ABG Chloride ABG Glucose 220 H Oxyhemoglobin Carboxyhemoglobin Sodium Potassium Chloride Carbon Dioxide BUN Creatinine Glucose POC Glucose 117 H 121 H Lactic Acid Calcium Magnesium Ferritin Total Bilirubin Direct Bilirubin AST ALT Alkaline Phosphatase Lactate Dehydrogenase C-Reactive Protein Total Protein Albumin Triglycerides Lipase Arterial Blood Glucose 220 H Arterial Blood Ionized Calcium Urine WBC (Auto) Coronavirus (PCR) SARS-CoV-2 IgG Ab Crossmatch 06/10/20 06/10/20 06/10/20 05:30 09:38 12:03 WBC RBC Hgb Hct MCV MCH MCHC RDW Lymph % (Auto) [place] % (Auto) Lymph # (Auto) [place] # (Auto) Baso # (Auto) Seg Neutrophils % Seg Neuts % (Manual) Lymphocytes % (Manual) Nucleated RBC % Seg Neutrophils # Seg Neutrophils # Man Lymphocytes # (Manual) Monocytes # (Manual) Eosinophils # (Manual) PT INR APTT D-Dimer Heparin Anti-Xa Level ABG pH POC ABG pCO2 POC ABG pO2 ABG pO2 ABG HCO3 ABG O2 Saturation ABG Base Excess ABG Hemoglobin ABG Oxyhemoglobin ABG Sodium ABG Potassium ABG Chloride ABG Glucose Oxyhemoglobin Carboxyhemoglobin Sodium Potassium Chloride Carbon Dioxide BUN Creatinine Glucose POC Glucose 181 H 204 H Lactic Acid Calcium Magnesium Ferritin Total Bilirubin Direct Bilirubin AST ALT Alkaline Phosphatase Lactate Dehydrogenase C-Reactive Protein Total Protein Albumin Triglycerides 738 H Lipase Arterial Blood Glucose Arterial Blood Ionized Calcium Urine WBC (Auto) Coronavirus (PCR) SARS-CoV-2 IgG Ab Crossmatch 06/10/20 06/11/20 06/11/20 17:17 00:04 04:38 WBC RBC Hgb Hct MCV MCH MCHC RDW Lymph % (Auto) [place] % (Auto) Lymph # (Auto) [place] # (Auto) Baso # (Auto) Seg Neutrophils % Seg Neuts % (Manual) Lymphocytes % (Manual) Nucleated RBC % Seg Neutrophils # Seg Neutrophils # Man Lymphocytes # (Manual) Monocytes # (Manual) Eosinophils # (Manual) PT INR APTT D-Dimer Heparin Anti-Xa Level ABG pH 7.479 H POC ABG pCO2 POC ABG pO2 76.7 L ABG pO2 ABG HCO3 ABG O2 Saturation ABG Base Excess ABG Hemoglobin 9.8 L ABG Oxyhemoglobin ABG Sodium 135.8 L ABG Potassium ABG Chloride ABG Glucose 238 H Oxyhemoglobin Carboxyhemoglobin Sodium Potassium Chloride Carbon Dioxide BUN Creatinine Glucose POC Glucose 156 H 178 H Lactic Acid Calcium Magnesium Ferritin Total Bilirubin Direct Bilirubin AST ALT Alkaline Phosphatase Lactate Dehydrogenase C-Reactive Protein Total Protein Albumin Triglycerides Lipase Arterial Blood Glucose 238 H Arterial Blood Ionized Calcium Urine WBC (Auto) Coronavirus (PCR) SARS-CoV-2 IgG Ab Crossmatch 06/11/20 06/11/20 06/11/20 05:21 06:52 11:50 WBC RBC Hgb Hct MCV MCH MCHC RDW Lymph % (Auto) [place] % (Auto) Lymph # (Auto) [place] # (Auto) Baso # (Auto) Seg Neutrophils % Seg Neuts % (Manual) Lymphocytes % (Manual) Nucleated RBC % Seg Neutrophils # Seg Neutrophils # Man Lymphocytes # (Manual) Monocytes # (Manual) Eosinophils # (Manual) PT INR APTT D-Dimer Heparin Anti-Xa Level ABG pH POC ABG pCO2 POC ABG pO2 ABG pO2 ABG HCO3 ABG O2 Saturation ABG Base Excess ABG Hemoglobin ABG Oxyhemoglobin ABG Sodium ABG Potassium ABG Chloride ABG Glucose Oxyhemoglobin Carboxyhemoglobin Sodium Potassium Chloride Carbon Dioxide BUN Creatinine Glucose POC Glucose 215 H 187 H Lactic Acid Calcium Magnesium Ferritin Total Bilirubin Direct Bilirubin AST ALT Alkaline Phosphatase Lactate Dehydrogenase C-Reactive Protein Total Protein Albumin Triglycerides 331 H Lipase Arterial Blood Glucose Arterial Blood Ionized Calcium Urine WBC (Auto) Coronavirus (PCR) SARS-CoV-2 IgG Ab Crossmatch 06/11/20 06/11/20 06/12/20 17:49 23:35 04:52 WBC RBC Hgb Hct MCV MCH MCHC RDW Lymph % (Auto) [place] % (Auto) Lymph # (Auto) [place] # (Auto) Baso # (Auto) Seg Neutrophils % Seg Neuts % (Manual) Lymphocytes % (Manual) Nucleated RBC % Seg Neutrophils # Seg Neutrophils # Man Lymphocytes # (Manual) Monocytes # (Manual) Eosinophils # (Manual) PT INR APTT D-Dimer Heparin Anti-Xa Level ABG pH 7.486 H POC ABG pCO2 POC ABG pO2 ABG pO2 ABG HCO3 ABG O2 Saturation ABG Base Excess ABG Hemoglobin 9.4 L ABG Oxyhemoglobin ABG Sodium ABG Potassium 3.2 L ABG Chloride ABG Glucose 209 H Oxyhemoglobin Carboxyhemoglobin Sodium Potassium Chloride Carbon Dioxide BUN Creatinine Glucose POC Glucose 211 H 200 H Lactic Acid Calcium Magnesium Ferritin Total Bilirubin Direct Bilirubin AST ALT Alkaline Phosphatase Lactate Dehydrogenase C-Reactive Protein Total Protein Albumin Triglycerides Lipase Arterial Blood Glucose 209 H Arterial Blood Ionized Calcium Urine WBC (Auto) Coronavirus (PCR) SARS-CoV-2 IgG Ab Crossmatch 06/12/20 06/12/20 06/12/20 05:13 11:47 18:33 WBC RBC Hgb Hct MCV MCH MCHC RDW Lymph % (Auto) [place] % (Auto) Lymph # (Auto) [place] # (Auto) Baso # (Auto) Seg Neutrophils % Seg Neuts % (Manual) Lymphocytes % (Manual) Nucleated RBC % Seg Neutrophils # Seg Neutrophils # Man Lymphocytes # (Manual) Monocytes # (Manual) Eosinophils # (Manual) PT INR APTT D-Dimer Heparin Anti-Xa Level ABG pH POC ABG pCO2 POC ABG pO2 ABG pO2 ABG HCO3 ABG O2 Saturation ABG Base Excess ABG Hemoglobin ABG Oxyhemoglobin ABG Sodium ABG Potassium ABG Chloride ABG Glucose Oxyhemoglobin Carboxyhemoglobin Sodium Potassium Chloride Carbon Dioxide BUN Creatinine Glucose POC Glucose 174 H 214 H 194 H Lactic Acid Calcium Magnesium Ferritin Total Bilirubin Direct Bilirubin AST ALT Alkaline Phosphatase Lactate Dehydrogenase C-Reactive Protein Total Protein Albumin Triglycerides Lipase Arterial Blood Glucose Arterial Blood Ionized Calcium Urine WBC (Auto) Coronavirus (PCR) SARS-CoV-2 IgG Ab Crossmatch 06/12/20 06/13/20 06/13/20 23:49 05:41 12:30 WBC RBC Hgb Hct MCV MCH MCHC RDW Lymph % (Auto) [place] % (Auto) Lymph # (Auto) [place] # (Auto) Baso # (Auto) Seg Neutrophils % Seg Neuts % (Manual) Lymphocytes % (Manual) Nucleated RBC % Seg Neutrophils # Seg Neutrophils # Man Lymphocytes # (Manual) Monocytes # (Manual) Eosinophils # (Manual) PT INR APTT D-Dimer Heparin Anti-Xa Level ABG pH POC ABG pCO2 POC ABG pO2 ABG pO2 ABG HCO3 ABG O2 Saturation ABG Base Excess ABG Hemoglobin ABG Oxyhemoglobin ABG Sodium ABG Potassium ABG Chloride ABG Glucose Oxyhemoglobin Carboxyhemoglobin Sodium Potassium Chloride Carbon Dioxide BUN Creatinine Glucose POC Glucose 160 H 150 H 181 H Lactic Acid Calcium Magnesium Ferritin Total Bilirubin Direct Bilirubin AST ALT Alkaline Phosphatase Lactate Dehydrogenase C-Reactive Protein Total Protein Albumin Triglycerides Lipase Arterial Blood Glucose Arterial Blood Ionized Calcium Urine WBC (Auto) Coronavirus (PCR) SARS-CoV-2 IgG Ab Crossmatch 06/13/20 06/13/20 06/13/20 14:14 17:48 23:27 WBC 12.8 H RBC 2.33 L Hgb 8.0 L Hct 23.3 L MCV 100 H MCH 34 H MCHC RDW 15.7 H Lymph % (Auto) [place] % (Auto) Lymph # (Auto) [place] # (Auto) Baso # (Auto) Seg Neutrophils % Seg Neuts % (Manual) 85.0 H Lymphocytes % (Manual) 10.0 L Nucleated RBC % Seg Neutrophils # Seg Neutrophils # Man 10.9 H Lymphocytes # (Manual) Monocytes # (Manual) Eosinophils # (Manual) PT INR APTT D-Dimer Heparin Anti-Xa Level ABG pH POC ABG pCO2 POC ABG pO2 ABG pO2 ABG HCO3 ABG O2 Saturation ABG Base Excess ABG Hemoglobin ABG Oxyhemoglobin ABG Sodium ABG Potassium ABG Chloride ABG Glucose Oxyhemoglobin Carboxyhemoglobin Sodium Potassium Chloride Carbon Dioxide BUN Creatinine Glucose POC Glucose 173 H 154 H Lactic Acid Calcium Magnesium Ferritin Total Bilirubin Direct Bilirubin AST ALT Alkaline Phosphatase Lactate Dehydrogenase C-Reactive Protein Total Protein Albumin Triglycerides Lipase Arterial Blood Glucose Arterial Blood Ionized Calcium Urine WBC (Auto) Coronavirus (PCR) SARS-CoV-2 IgG Ab Crossmatch 06/14/20 06/14/20 06/14/20 03:58 05:21 07:15 WBC 26.2 H RBC 2.97 L Hgb 9.7 L Hct 29.9 L D MCV 101 H MCH 33 H MCHC RDW 15.3 H Lymph % (Auto) [place] % (Auto) Lymph # (Auto) [place] # (Auto) Baso # (Auto) Seg Neutrophils % Seg Neuts % (Manual) 79.0 H Lymphocytes % (Manual) 5.0 L Nucleated RBC % 3.0 H Seg Neutrophils # Seg Neutrophils # Man 20.7 H Lymphocytes # (Manual) Monocytes # (Manual) 1.3 H Eosinophils # (Manual) PT INR APTT D-Dimer Heparin Anti-Xa Level ABG pH POC ABG pCO2 51.5 H POC ABG pO2 70.0 L ABG pO2 ABG HCO3 ABG O2 Saturation ABG Base Excess ABG Hemoglobin 10.1 L ABG Oxyhemoglobin ABG Sodium 131.5 L ABG Potassium 3.1 L ABG Chloride 93.0 L ABG Glucose 188 H Oxyhemoglobin Carboxyhemoglobin Sodium Potassium Chloride Carbon Dioxide BUN Creatinine Glucose POC Glucose 147 H Lactic Acid Calcium Magnesium Ferritin Total Bilirubin Direct Bilirubin AST ALT Alkaline Phosphatase Lactate Dehydrogenase C-Reactive Protein Total Protein Albumin Triglycerides Lipase Arterial Blood Glucose 188 H Arterial Blood Ionized Calcium Urine WBC (Auto) Coronavirus (PCR) SARS-CoV-2 IgG Ab Crossmatch 06/14/20 06/14/20 06/14/20 07:15 11:30 11:50 WBC RBC Hgb Hct MCV MCH MCHC RDW Lymph % (Auto) [place] % (Auto) Lymph # (Auto) [place] # (Auto) Baso # (Auto) Seg Neutrophils % Seg Neuts % (Manual) Lymphocytes % (Manual) Nucleated RBC % Seg Neutrophils # Seg Neutrophils # Man Lymphocytes # (Manual) Monocytes # (Manual) Eosinophils # (Manual) PT INR APTT D-Dimer Heparin Anti-Xa Level ABG pH POC ABG pCO2 POC ABG pO2 ABG pO2 ABG HCO3 ABG O2 Saturation ABG Base Excess ABG Hemoglobin ABG Oxyhemoglobin ABG Sodium ABG Potassium ABG Chloride ABG Glucose Oxyhemoglobin Carboxyhemoglobin Sodium 135 L Potassium 3.5 L Chloride 90.4 L Carbon Dioxide 38 H BUN Creatinine 0.5 L Glucose 190 H POC Glucose 176 H Lactic Acid Calcium Magnesium Ferritin 1496.0 H Total Bilirubin Direct Bilirubin AST ALT 81 H Alkaline Phosphatase Lactate Dehydrogenase C-Reactive Protein Total Protein Albumin 2.9 L Triglycerides Lipase Arterial Blood Glucose Arterial Blood Ionized Calcium Urine WBC (Auto) Coronavirus (PCR) SARS-CoV-2 IgG Ab Crossmatch 06/14/20 06/15/20 06/15/20 23:31 04:00 05:00 WBC RBC Hgb Hct MCV MCH MCHC RDW Lymph % (Auto) [place] % (Auto) Lymph # (Auto) [place] # (Auto) Baso # (Auto) Seg Neutrophils % Seg Neuts % (Manual) Lymphocytes % (Manual) Nucleated RBC % Seg Neutrophils # Seg Neutrophils # Man Lymphocytes # (Manual) Monocytes # (Manual) Eosinophils # (Manual) PT INR APTT D-Dimer Heparin Anti-Xa Level ABG pH POC ABG pCO2 POC ABG pO2 ABG pO2 ABG HCO3 ABG O2 Saturation ABG Base Excess ABG Hemoglobin ABG Oxyhemoglobin ABG Sodium ABG Potassium ABG Chloride ABG Glucose Oxyhemoglobin Carboxyhemoglobin Sodium 133 L Potassium Chloride 91.1 L Carbon Dioxide 34 H BUN Creatinine 0.4 L Glucose 159 H POC Glucose 200 H Lactic Acid Calcium Magnesium Ferritin Total Bilirubin 2.00 H Direct Bilirubin AST 47 H ALT 77 H Alkaline Phosphatase Lactate Dehydrogenase C-Reactive Protein Total Protein Albumin 2.6 L Triglycerides 152 H Lipase Arterial Blood Glucose Arterial Blood Ionized Calcium Urine WBC (Auto) Coronavirus (PCR) SARS-CoV-2 IgG Ab Crossmatch 06/15/20 06/15/20 06/15/20 05:35 06:27 11:38 WBC RBC Hgb Hct MCV MCH MCHC RDW Lymph % (Auto) [place] % (Auto) Lymph # (Auto) [place] # (Auto) Baso # (Auto) Seg Neutrophils % Seg Neuts % (Manual) Lymphocytes % (Manual) Nucleated RBC % Seg Neutrophils # Seg Neutrophils # Man Lymphocytes # (Manual) Monocytes # (Manual) Eosinophils # (Manual) PT INR APTT D-Dimer Heparin Anti-Xa Level ABG pH POC ABG pCO2 61.0 H POC ABG pO2 67.9 L ABG pO2 ABG HCO3 ABG O2 Saturation ABG Base Excess ABG Hemoglobin 10.4 L ABG Oxyhemoglobin ABG Sodium 132.7 L ABG Potassium 3.3 L ABG Chloride 92.0 L ABG Glucose 158 H Oxyhemoglobin Carboxyhemoglobin Sodium Potassium Chloride Carbon Dioxide BUN Creatinine Glucose POC Glucose 148 H 197 H Lactic Acid Calcium Magnesium Ferritin Total Bilirubin Direct Bilirubin AST ALT Alkaline Phosphatase Lactate Dehydrogenase C-Reactive Protein Total Protein Albumin Triglycerides Lipase Arterial Blood Glucose 158 H Arterial Blood Ionized Calcium Urine WBC (Auto) Coronavirus (PCR) SARS-CoV-2 IgG Ab Crossmatch 06/15/20 06/15/20 06/16/20 17:29 Unknown 00:01 WBC 20.7 H RBC 2.57 L Hgb 8.9 L Hct 25.8 L MCV 101 H MCH 35 H MCHC 35 H RDW 16.0 H Lymph % (Auto) [place] % (Auto) Lymph # (Auto) [place] # (Auto) Baso # (Auto) Seg Neutrophils % Seg Neuts % (Manual) 83.0 H Lymphocytes % (Manual) 8.0 L Nucleated RBC % Seg Neutrophils # Seg Neutrophils # Man 17.2 H Lymphocytes # (Manual) Monocytes # (Manual) 1.2 H Eosinophils # (Manual) PT INR APTT D-Dimer Heparin Anti-Xa Level ABG pH POC ABG pCO2 POC ABG pO2 ABG pO2 ABG HCO3 ABG O2 Saturation ABG Base Excess ABG Hemoglobin ABG Oxyhemoglobin ABG Sodium ABG Potassium ABG Chloride ABG Glucose Oxyhemoglobin Carboxyhemoglobin Sodium Potassium Chloride Carbon Dioxide BUN Creatinine Glucose POC Glucose 231 H 257 H Lactic Acid Calcium Magnesium Ferritin Total Bilirubin Direct Bilirubin AST ALT Alkaline Phosphatase Lactate Dehydrogenase C-Reactive Protein Total Protein Albumin Triglycerides Lipase Arterial Blood Glucose Arterial Blood Ionized Calcium Urine WBC (Auto) Coronavirus (PCR) SARS-CoV-2 IgG Ab Crossmatch 06/16/20 06/16/20 06/16/20 04:00 04:00 05:22 WBC 13.8 H RBC 2.03 L Hgb 7.6 L Hct 20.7 L MCV 102 H MCH 37 H MCHC 37 H RDW 16.2 H Lymph % (Auto) 4.4 L [place] % (Auto) Lymph # (Auto) 0.6 L [place] # (Auto) Baso # (Auto) Seg Neutrophils % Seg Neuts % (Manual) Lymphocytes % (Manual) Nucleated RBC % Seg Neutrophils # 12.7 H Seg Neutrophils # Man Lymphocytes # (Manual) Monocytes # (Manual) Eosinophils # (Manual) PT INR APTT D-Dimer Heparin Anti-Xa Level ABG pH POC ABG pCO2 POC ABG pO2 ABG pO2 ABG HCO3 ABG O2 Saturation ABG Base Excess ABG Hemoglobin ABG Oxyhemoglobin ABG Sodium ABG Potassium ABG Chloride ABG Glucose Oxyhemoglobin Carboxyhemoglobin Sodium 130 L Potassium Chloride 88.9 L Carbon Dioxide 36 H BUN Creatinine 0.3 L Glucose 276 H POC Glucose 250 H Lactic Acid Calcium Magnesium Ferritin Total Bilirubin Direct Bilirubin AST ALT Alkaline Phosphatase Lactate Dehydrogenase C-Reactive Protein Total Protein Albumin Triglycerides Lipase Arterial Blood Glucose Arterial Blood Ionized Calcium Urine WBC (Auto) Coronavirus (PCR) SARS-CoV-2 IgG Ab Crossmatch 06/16/20 06/16/20 06/17/20 12:44 18:18 00:39 WBC RBC Hgb Hct MCV MCH MCHC RDW Lymph % (Auto) [place] % (Auto) Lymph # (Auto) [place] # (Auto) Baso # (Auto) Seg Neutrophils % Seg Neuts % (Manual) Lymphocytes % (Manual) Nucleated RBC % Seg Neutrophils # Seg Neutrophils # Man Lymphocytes # (Manual) Monocytes # (Manual) Eosinophils # (Manual) PT INR APTT D-Dimer Heparin Anti-Xa Level ABG pH POC ABG pCO2 POC ABG pO2 ABG pO2 ABG HCO3 ABG O2 Saturation ABG Base Excess ABG Hemoglobin ABG Oxyhemoglobin ABG Sodium ABG Potassium ABG Chloride ABG Glucose Oxyhemoglobin Carboxyhemoglobin Sodium Potassium Chloride Carbon Dioxide BUN Creatinine Glucose POC Glucose 279 H 239 H 247 H Lactic Acid Calcium Magnesium Ferritin Total Bilirubin Direct Bilirubin AST ALT Alkaline Phosphatase Lactate Dehydrogenase C-Reactive Protein Total Protein Albumin Triglycerides Lipase Arterial Blood Glucose Arterial Blood Ionized Calcium Urine WBC (Auto) Coronavirus (PCR) SARS-CoV-2 IgG Ab Crossmatch 06/17/20 06/17/20 06/17/20 03:40 04:08 10:54 WBC RBC Hgb Hct MCV MCH MCHC RDW Lymph % (Auto) [place] % (Auto) Lymph # (Auto) [place] # (Auto) Baso # (Auto) Seg Neutrophils % Seg Neuts % (Manual) Lymphocytes % (Manual) Nucleated RBC % Seg Neutrophils # Seg Neutrophils # Man Lymphocytes # (Manual) Monocytes # (Manual) Eosinophils # (Manual) PT INR APTT D-Dimer Heparin Anti-Xa Level ABG pH POC ABG pCO2 65.7 H POC ABG pO2 ABG pO2 ABG HCO3 ABG O2 Saturation ABG Base Excess ABG Hemoglobin 11.9 L ABG Oxyhemoglobin ABG Sodium ABG Potassium ABG Chloride 93.0 L ABG Glucose 244 H Oxyhemoglobin Carboxyhemoglobin Sodium Potassium Chloride Carbon Dioxide BUN Creatinine Glucose POC Glucose 221 H 248 H Lactic Acid Calcium Magnesium Ferritin Total Bilirubin Direct Bilirubin AST ALT Alkaline Phosphatase Lactate Dehydrogenase C-Reactive Protein Total Protein Albumin Triglycerides Lipase Arterial Blood Glucose 244 H Arterial Blood Ionized Calcium Urine WBC (Auto) Coronavirus (PCR) SARS-CoV-2 IgG Ab Crossmatch 06/17/20 06/17/20 06/17/20 17:47 23:11 23:29 WBC RBC Hgb Hct MCV MCH MCHC RDW Lymph % (Auto) [place] % (Auto) Lymph # (Auto) [place] # (Auto) Baso # (Auto) Seg Neutrophils % Seg Neuts % (Manual) Lymphocytes % (Manual) Nucleated RBC % Seg Neutrophils # Seg Neutrophils # Man Lymphocytes # (Manual) Monocytes # (Manual) Eosinophils # (Manual) PT INR APTT D-Dimer Heparin Anti-Xa Level ABG pH POC ABG pCO2 85.2 H POC ABG pO2 48.4 L ABG pO2 ABG HCO3 ABG O2 Saturation ABG Base Excess ABG Hemoglobin 8.0 L ABG Oxyhemoglobin ABG Sodium ABG Potassium ABG Chloride 95.0 L ABG Glucose 292 H Oxyhemoglobin Carboxyhemoglobin Sodium Potassium Chloride Carbon Dioxide BUN Creatinine Glucose POC Glucose 245 H 252 H Lactic Acid Calcium Magnesium Ferritin Total Bilirubin Direct Bilirubin AST ALT Alkaline Phosphatase Lactate Dehydrogenase C-Reactive Protein Total Protein Albumin Triglycerides Lipase Arterial Blood Glucose 292 H Arterial Blood Ionized Calcium Urine WBC (Auto) Coronavirus (PCR) SARS-CoV-2 IgG Ab Crossmatch 06/18/20 06/18/20 06/18/20 03:14 05:34 11:47 WBC RBC Hgb Hct MCV MCH MCHC RDW Lymph % (Auto) [place] % (Auto) Lymph # (Auto) [place] # (Auto) Baso # (Auto) Seg Neutrophils % Seg Neuts % (Manual) Lymphocytes % (Manual) Nucleated RBC % Seg Neutrophils # Seg Neutrophils # Man Lymphocytes # (Manual) Monocytes # (Manual) Eosinophils # (Manual) PT INR APTT D-Dimer Heparin Anti-Xa Level ABG pH POC ABG pCO2 65.4 H POC ABG pO2 160.7 H ABG pO2 ABG HCO3 ABG O2 Saturation ABG Base Excess ABG Hemoglobin 7.8 L ABG Oxyhemoglobin ABG Sodium ABG Potassium ABG Chloride 95.0 L ABG Glucose 251 H Oxyhemoglobin Carboxyhemoglobin Sodium Potassium Chloride Carbon Dioxide BUN Creatinine Glucose POC Glucose 243 H 263 H Lactic Acid Calcium Magnesium Ferritin Total Bilirubin Direct Bilirubin AST ALT Alkaline Phosphatase Lactate Dehydrogenase C-Reactive Protein Total Protein Albumin Triglycerides Lipase Arterial Blood Glucose 251 H Arterial Blood Ionized Calcium Urine WBC (Auto) Coronavirus (PCR) SARS-CoV-2 IgG Ab Crossmatch 06/18/20 06/18/20 06/19/20 17:31 23:33 04:32 WBC RBC Hgb Hct MCV MCH MCHC RDW Lymph % (Auto) [place] % (Auto) Lymph # (Auto) [place] # (Auto) Baso # (Auto) Seg Neutrophils % Seg Neuts % (Manual) Lymphocytes % (Manual) Nucleated RBC % Seg Neutrophils # Seg Neutrophils # Man Lymphocytes # (Manual) Monocytes # (Manual) Eosinophils # (Manual) PT INR APTT D-Dimer Heparin Anti-Xa Level ABG pH POC ABG pCO2 83.1 H POC ABG pO2 65.8 L ABG pO2 ABG HCO3 ABG O2 Saturation ABG Base Excess ABG Hemoglobin 8.9 L ABG Oxyhemoglobin ABG Sodium ABG Potassium ABG Chloride 96.0 L ABG Glucose 297 H Oxyhemoglobin Carboxyhemoglobin Sodium Potassium Chloride Carbon Dioxide BUN Creatinine Glucose POC Glucose 286 H 238 H Lactic Acid Calcium Magnesium Ferritin Total Bilirubin Direct Bilirubin AST ALT Alkaline Phosphatase Lactate Dehydrogenase C-Reactive Protein Total Protein Albumin Triglycerides Lipase Arterial Blood Glucose 297 H Arterial Blood Ionized Calcium Urine WBC (Auto) Coronavirus (PCR) SARS-CoV-2 IgG Ab Crossmatch 06/19/20 06/19/20 06/19/20 05:55 11:20 17:12 WBC RBC Hgb Hct MCV MCH MCHC RDW Lymph % (Auto) [place] % (Auto) Lymph # (Auto) [place] # (Auto) Baso # (Auto) Seg Neutrophils % Seg Neuts % (Manual) Lymphocytes % (Manual) Nucleated RBC % Seg Neutrophils # Seg Neutrophils # Man Lymphocytes # (Manual) Monocytes # (Manual) Eosinophils # (Manual) PT INR APTT D-Dimer Heparin Anti-Xa Level ABG pH POC ABG pCO2 POC ABG pO2 ABG pO2 ABG HCO3 ABG O2 Saturation ABG Base Excess ABG Hemoglobin ABG Oxyhemoglobin ABG Sodium ABG Potassium ABG Chloride ABG Glucose Oxyhemoglobin Carboxyhemoglobin Sodium Potassium Chloride Carbon Dioxide BUN Creatinine Glucose POC Glucose 274 H 282 H 298 H Lactic Acid Calcium Magnesium Ferritin Total Bilirubin Direct Bilirubin AST ALT Alkaline Phosphatase Lactate Dehydrogenase C-Reactive Protein Total Protein Albumin Triglycerides Lipase Arterial Blood Glucose Arterial Blood Ionized Calcium Urine WBC (Auto) Coronavirus (PCR) SARS-CoV-2 IgG Ab Crossmatch 06/19/20 06/20/20 06/20/20 23:08 03:33 06:01 WBC RBC Hgb Hct MCV MCH MCHC RDW Lymph % (Auto) [place] % (Auto) Lymph # (Auto) [place] # (Auto) Baso # (Auto) Seg Neutrophils % Seg Neuts % (Manual) Lymphocytes % (Manual) Nucleated RBC % Seg Neutrophils # Seg Neutrophils # Man Lymphocytes # (Manual) Monocytes # (Manual) Eosinophils # (Manual) PT INR APTT D-Dimer Heparin Anti-Xa Level ABG pH POC ABG pCO2 POC ABG pO2 ABG pO2 69.9 L ABG HCO3 50.8 H ABG O2 Saturation ABG Base Excess 24.2 H ABG Hemoglobin 5.8 L ABG Oxyhemoglobin ABG Sodium ABG Potassium ABG Chloride ABG Glucose Oxyhemoglobin Carboxyhemoglobin Sodium Potassium Chloride Carbon Dioxide BUN Creatinine Glucose POC Glucose 293 H 182 H Lactic Acid Calcium Magnesium Ferritin Total Bilirubin Direct Bilirubin AST ALT Alkaline Phosphatase Lactate Dehydrogenase C-Reactive Protein Total Protein Albumin Triglycerides Lipase Arterial Blood Glucose Arterial Blood Ionized Calcium Urine WBC (Auto) Coronavirus (PCR) SARS-CoV-2 IgG Ab Crossmatch 06/20/20 06/20/20 06/20/20 11:47 17:46 23:37 WBC RBC Hgb Hct MCV MCH MCHC RDW Lymph % (Auto) [place] % (Auto) Lymph # (Auto) [place] # (Auto) Baso # (Auto) Seg Neutrophils % Seg Neuts % (Manual) Lymphocytes % (Manual) Nucleated RBC % Seg Neutrophils # Seg Neutrophils # Man Lymphocytes # (Manual) Monocytes # (Manual) Eosinophils # (Manual) PT INR APTT D-Dimer Heparin Anti-Xa Level ABG pH POC ABG pCO2 POC ABG pO2 ABG pO2 ABG HCO3 ABG O2 Saturation ABG Base Excess ABG Hemoglobin ABG Oxyhemoglobin ABG Sodium ABG Potassium ABG Chloride ABG Glucose Oxyhemoglobin Carboxyhemoglobin Sodium Potassium Chloride Carbon Dioxide BUN Creatinine Glucose POC Glucose 170 H 215 H 256 H Lactic Acid Calcium Magnesium Ferritin Total Bilirubin Direct Bilirubin AST ALT Alkaline Phosphatase Lactate Dehydrogenase C-Reactive Protein Total Protein Albumin Triglycerides Lipase Arterial Blood Glucose Arterial Blood Ionized Calcium Urine WBC (Auto) Coronavirus (PCR) SARS-CoV-2 IgG Ab Crossmatch 06/21/20 06/21/20 06/21/20 04:00 05:14 05:51 WBC RBC Hgb Hct MCV MCH MCHC RDW Lymph % (Auto) [place] % (Auto) Lymph # (Auto) [place] # (Auto) Baso # (Auto) Seg Neutrophils % Seg Neuts % (Manual) Lymphocytes % (Manual) Nucleated RBC % Seg Neutrophils # Seg Neutrophils # Man Lymphocytes # (Manual) Monocytes # (Manual) Eosinophils # (Manual) PT INR APTT D-Dimer Heparin Anti-Xa Level ABG pH 7.474 H POC ABG pCO2 POC ABG pO2 ABG pO2 ABG HCO3 52.1 H ABG O2 Saturation ABG Base Excess 23.3 H ABG Hemoglobin 5.3 L ABG Oxyhemoglobin ABG Sodium ABG Potassium ABG Chloride ABG Glucose Oxyhemoglobin 93.8 L Carboxyhemoglobin Sodium Potassium Chloride Carbon Dioxide BUN Creatinine Glucose POC Glucose 122 H 129 H Lactic Acid Calcium Magnesium Ferritin Total Bilirubin Direct Bilirubin AST ALT Alkaline Phosphatase Lactate Dehydrogenase C-Reactive Protein Total Protein Albumin Triglycerides Lipase Arterial Blood Glucose Arterial Blood Ionized Calcium Urine WBC (Auto) Coronavirus (PCR) SARS-CoV-2 IgG Ab Crossmatch 06/21/20 06/21/20 06/21/20 11:00 11:00 11:42 WBC 14.2 H RBC 1.85 L Hgb 6.2 L Hct 19.5 L* MCV 105 H MCH 34 H MCHC RDW 18.0 H Lymph % (Auto) [place] % (Auto) Lymph # (Auto) [place] # (Auto) Baso # (Auto) Seg Neutrophils % Seg Neuts % (Manual) Lymphocytes % (Manual) Nucleated RBC % Seg Neutrophils # Seg Neutrophils # Man Lymphocytes # (Manual) Monocytes # (Manual) Eosinophils # (Manual) PT INR APTT D-Dimer Heparin Anti-Xa Level ABG pH POC ABG pCO2 POC ABG pO2 ABG pO2 ABG HCO3 ABG O2 Saturation ABG Base Excess ABG Hemoglobin ABG Oxyhemoglobin ABG Sodium ABG Potassium ABG Chloride ABG Glucose Oxyhemoglobin Carboxyhemoglobin Sodium 147 H Potassium Chloride Carbon Dioxide 51 H* BUN 31 H Creatinine 0.5 L Glucose 224 H POC Glucose 217 H Lactic Acid Calcium Magnesium Ferritin Total Bilirubin Direct Bilirubin AST ALT Alkaline Phosphatase Lactate Dehydrogenase C-Reactive Protein Total Protein Albumin Triglycerides Lipase Arterial Blood Glucose Arterial Blood Ionized Calcium Urine WBC (Auto) Coronavirus (PCR) SARS-CoV-2 IgG Ab Crossmatch 06/21/20 06/21/20 06/21/20 14:18 14:30 18:36 WBC RBC Hgb Hct MCV MCH MCHC RDW Lymph % (Auto) [place] % (Auto) Lymph # (Auto) [place] # (Auto) Baso # (Auto) Seg Neutrophils % Seg Neuts % (Manual) Lymphocytes % (Manual) Nucleated RBC % Seg Neutrophils # Seg Neutrophils # Man Lymphocytes # (Manual) Monocytes # (Manual) Eosinophils # (Manual) PT 15.1 H INR 1.19 H APTT D-Dimer Heparin Anti-Xa Level ABG pH POC ABG pCO2 POC ABG pO2 ABG pO2 ABG HCO3 ABG O2 Saturation ABG Base Excess ABG Hemoglobin ABG Oxyhemoglobin ABG Sodium ABG Potassium ABG Chloride ABG Glucose Oxyhemoglobin Carboxyhemoglobin Sodium Potassium Chloride Carbon Dioxide BUN Creatinine Glucose POC Glucose 185 H Lactic Acid Calcium Magnesium Ferritin Total Bilirubin Direct Bilirubin AST ALT Alkaline Phosphatase Lactate Dehydrogenase C-Reactive Protein Total Protein Albumin Triglycerides Lipase Arterial Blood Glucose Arterial Blood Ionized Calcium Urine WBC (Auto) Coronavirus (PCR) SARS-CoV-2 IgG Ab Crossmatch See Detail 06/21/20 06/22/20 06/22/20 21:14 03:50 04:00 WBC RBC Hgb Hct MCV MCH MCHC RDW Lymph % (Auto) [place] % (Auto) Lymph # (Auto) [place] # (Auto) Baso # (Auto) Seg Neutrophils % Seg Neuts % (Manual) Lymphocytes % (Manual) Nucleated RBC % Seg Neutrophils # Seg Neutrophils # Man Lymphocytes # (Manual) Monocytes # (Manual) Eosinophils # (Manual) PT INR APTT D-Dimer Heparin Anti-Xa Level ABG pH 7.451 H POC ABG pCO2 POC ABG pO2 ABG pO2 ABG HCO3 47.5 H ABG O2 Saturation ABG Base Excess 22.0 H ABG Hemoglobin < 5.1 L ABG Oxyhemoglobin ABG Sodium ABG Potassium ABG Chloride ABG Glucose Oxyhemoglobin 94.1 L Carboxyhemoglobin Sodium 149 H Potassium 3.5 L Chloride Carbon Dioxide 42 H* D BUN 34 H Creatinine 0.4 L Glucose 219 H POC Glucose 250 H Lactic Acid Calcium Magnesium Ferritin Total Bilirubin Direct Bilirubin AST ALT Alkaline Phosphatase Lactate Dehydrogenase C-Reactive Protein Total Protein Albumin Triglycerides Lipase Arterial Blood Glucose Arterial Blood Ionized Calcium Urine WBC (Auto) Coronavirus (PCR) SARS-CoV-2 IgG Ab Crossmatch 06/22/20 06/22/20 06/22/20 12:16 14:29 17:56 WBC RBC Hgb Hct MCV MCH MCHC RDW Lymph % (Auto) [place] % (Auto) Lymph # (Auto) [place] # (Auto) Baso # (Auto) Seg Neutrophils % Seg Neuts % (Manual) Lymphocytes % (Manual) Nucleated RBC % Seg Neutrophils # Seg Neutrophils # Man Lymphocytes # (Manual) Monocytes # (Manual) Eosinophils # (Manual) PT 11.8 L INR APTT 23.5 L D-Dimer Heparin Anti-Xa Level ABG pH POC ABG pCO2 POC ABG pO2 ABG pO2 ABG HCO3 ABG O2 Saturation ABG Base Excess ABG Hemoglobin ABG Oxyhemoglobin ABG Sodium ABG Potassium ABG Chloride ABG Glucose Oxyhemoglobin Carboxyhemoglobin Sodium Potassium Chloride Carbon Dioxide BUN Creatinine Glucose POC Glucose 215 H 215 H Lactic Acid Calcium Magnesium Ferritin Total Bilirubin Direct Bilirubin AST ALT Alkaline Phosphatase Lactate Dehydrogenase C-Reactive Protein Total Protein Albumin Triglycerides Lipase Arterial Blood Glucose Arterial Blood Ionized Calcium Urine WBC (Auto) Coronavirus (PCR) SARS-CoV-2 IgG Ab Crossmatch 06/22/20 06/22/20 06/22/20 23:36 23:45 Unknown WBC 14.1 H RBC 2.70 L Hgb 8.9 L 8.9 L Hct 26.9 L 27.2 L D MCV 101 H MCH 33 H MCHC RDW 17.7 H Lymph % (Auto) [place] % (Auto) Lymph # (Auto) [place] # (Auto) Baso # (Auto) Seg Neutrophils % Seg Neuts % (Manual) 92.0 H Lymphocytes % (Manual) 5.0 L Nucleated RBC % Seg Neutrophils # Seg Neutrophils # Man 13.0 H Lymphocytes # (Manual) 0.7 L Monocytes # (Manual) Eosinophils # (Manual) PT INR APTT D-Dimer Heparin Anti-Xa Level ABG pH POC ABG pCO2 POC ABG pO2 ABG pO2 ABG HCO3 ABG O2 Saturation ABG Base Excess ABG Hemoglobin ABG Oxyhemoglobin ABG Sodium ABG Potassium ABG Chloride ABG Glucose Oxyhemoglobin Carboxyhemoglobin Sodium Potassium Chloride Carbon Dioxide BUN Creatinine Glucose POC Glucose 208 H Lactic Acid Calcium Magnesium Ferritin Total Bilirubin Direct Bilirubin AST ALT Alkaline Phosphatase Lactate Dehydrogenase C-Reactive Protein Total Protein Albumin Triglycerides Lipase Arterial Blood Glucose Arterial Blood Ionized Calcium Urine WBC (Auto) Coronavirus (PCR) SARS-CoV-2 IgG Ab Crossmatch 06/23/20 06/23/20 06/23/20 05:17 05:19 06:50 WBC RBC Hgb Hct MCV MCH MCHC RDW Lymph % (Auto) [place] % (Auto) Lymph # (Auto) [place] # (Auto) Baso # (Auto) Seg Neutrophils % Seg Neuts % (Manual) Lymphocytes % (Manual) Nucleated RBC % Seg Neutrophils # Seg Neutrophils # Man Lymphocytes # (Manual) Monocytes # (Manual) Eosinophils # (Manual) PT INR APTT D-Dimer Heparin Anti-Xa Level ABG pH POC ABG pCO2 69.7 H POC ABG pO2 63.3 L ABG pO2 ABG HCO3 ABG O2 Saturation ABG Base Excess ABG Hemoglobin 10.1 L ABG Oxyhemoglobin ABG Sodium ABG Potassium 3.3 L ABG Chloride ABG Glucose 226 H Oxyhemoglobin Carboxyhemoglobin Sodium Potassium 3.0 L Chloride Carbon Dioxide 41 H* BUN 26 H Creatinine 0.4 L Glucose 209 H POC Glucose 200 H Lactic Acid Calcium Magnesium Ferritin Total Bilirubin Direct Bilirubin AST ALT Alkaline Phosphatase Lactate Dehydrogenase C-Reactive Protein Total Protein Albumin 2.9 L Triglycerides Lipase Arterial Blood Glucose 226 H Arterial Blood Ionized Calcium Urine WBC (Auto) Coronavirus (PCR) SARS-CoV-2 IgG Ab Crossmatch 06/23/20 06/23/20 06/23/20 09:41 12:04 18:16 WBC RBC Hgb 9.1 L Hct 28.0 L MCV MCH MCHC RDW Lymph % (Auto) [place] % (Auto) Lymph # (Auto) [place] # (Auto) Baso # (Auto) Seg Neutrophils % Seg Neuts % (Manual) Lymphocytes % (Manual) Nucleated RBC % Seg Neutrophils # Seg Neutrophils # Man Lymphocytes # (Manual) Monocytes # (Manual) Eosinophils # (Manual) PT INR APTT D-Dimer Heparin Anti-Xa Level ABG pH POC ABG pCO2 POC ABG pO2 ABG pO2 ABG HCO3 ABG O2 Saturation ABG Base Excess ABG Hemoglobin ABG Oxyhemoglobin ABG Sodium ABG Potassium ABG Chloride ABG Glucose Oxyhemoglobin Carboxyhemoglobin Sodium Potassium Chloride Carbon Dioxide BUN Creatinine Glucose POC Glucose 146 H 162 H Lactic Acid Calcium Magnesium Ferritin Total Bilirubin Direct Bilirubin AST ALT Alkaline Phosphatase Lactate Dehydrogenase C-Reactive Protein Total Protein Albumin Triglycerides Lipase Arterial Blood Glucose Arterial Blood Ionized Calcium Urine WBC (Auto) Coronavirus (PCR) SARS-CoV-2 IgG Ab Crossmatch 06/23/20 06/23/20 06/24/20 23:24 23:41 02:39 WBC RBC Hgb 8.2 L 8.8 L Hct 24.9 L 26.8 L MCV MCH MCHC RDW Lymph % (Auto) [place] % (Auto) Lymph # (Auto) [place] # (Auto) Baso # (Auto) Seg Neutrophils % Seg Neuts % (Manual) Lymphocytes % (Manual) Nucleated RBC % Seg Neutrophils # Seg Neutrophils # Man Lymphocytes # (Manual) Monocytes # (Manual) Eosinophils # (Manual) PT INR APTT D-Dimer Heparin Anti-Xa Level ABG pH POC ABG pCO2 POC ABG pO2 ABG pO2 ABG HCO3 ABG O2 Saturation ABG Base Excess ABG Hemoglobin ABG Oxyhemoglobin ABG Sodium ABG Potassium ABG Chloride ABG Glucose Oxyhemoglobin Carboxyhemoglobin Sodium Potassium Chloride Carbon Dioxide BUN Creatinine Glucose POC Glucose 248 H Lactic Acid Calcium Magnesium Ferritin Total Bilirubin Direct Bilirubin AST ALT Alkaline Phosphatase Lactate Dehydrogenase C-Reactive Protein Total Protein Albumin Triglycerides Lipase Arterial Blood Glucose Arterial Blood Ionized Calcium Urine WBC (Auto) Coronavirus (PCR) SARS-CoV-2 IgG Ab Crossmatch 06/24/20 06/24/20 06/24/20 02:39 02:45 05:31 WBC RBC Hgb Hct MCV MCH MCHC RDW Lymph % (Auto) [place] % (Auto) Lymph # (Auto) [place] # (Auto) Baso # (Auto) Seg Neutrophils % Seg Neuts % (Manual) Lymphocytes % (Manual) Nucleated RBC % Seg Neutrophils # Seg Neutrophils # Man Lymphocytes # (Manual) Monocytes # (Manual) Eosinophils # (Manual) PT INR APTT D-Dimer Heparin Anti-Xa Level ABG pH POC ABG pCO2 66.9 H POC ABG pO2 109.7 H ABG pO2 ABG HCO3 ABG O2 Saturation ABG Base Excess ABG Hemoglobin 9.7 L ABG Oxyhemoglobin ABG Sodium 135.0 L ABG Potassium ABG Chloride 97.0 L ABG Glucose 277 H Oxyhemoglobin Carboxyhemoglobin Sodium 136 L Potassium Chloride 95.0 L Carbon Dioxide 34 H D BUN 24 H Creatinine 0.3 L Glucose 260 H POC Glucose 164 H Lactic Acid Calcium Magnesium Ferritin Total Bilirubin Direct Bilirubin AST ALT Alkaline Phosphatase Lactate Dehydrogenase C-Reactive Protein Total Protein 5.2 L Albumin 2.6 L Triglycerides Lipase Arterial Blood Glucose 277 H Arterial Blood Ionized Calcium Urine WBC (Auto) Coronavirus (PCR) SARS-CoV-2 IgG Ab Crossmatch 06/24/20 06/24/20 06/24/20 10:00 11:49 17:39 WBC RBC Hgb 8.9 L Hct 26.5 L MCV MCH MCHC RDW Lymph % (Auto) [place] % (Auto) Lymph # (Auto) [place] # (Auto) Baso # (Auto) Seg Neutrophils % Seg Neuts % (Manual) Lymphocytes % (Manual) Nucleated RBC % Seg Neutrophils # Seg Neutrophils # Man Lymphocytes # (Manual) Monocytes # (Manual) Eosinophils # (Manual) PT INR APTT D-Dimer Heparin Anti-Xa Level ABG pH POC ABG pCO2 POC ABG pO2 ABG pO2 ABG HCO3 ABG O2 Saturation ABG Base Excess ABG Hemoglobin ABG Oxyhemoglobin ABG Sodium ABG Potassium ABG Chloride ABG Glucose Oxyhemoglobin Carboxyhemoglobin Sodium Potassium Chloride Carbon Dioxide BUN Creatinine Glucose POC Glucose 198 H 223 H Lactic Acid Calcium Magnesium Ferritin Total Bilirubin Direct Bilirubin AST ALT Alkaline Phosphatase Lactate Dehydrogenase C-Reactive Protein Total Protein Albumin Triglycerides Lipase Arterial Blood Glucose Arterial Blood Ionized Calcium Urine WBC (Auto) Coronavirus (PCR) SARS-CoV-2 IgG Ab Crossmatch 06/24/20 06/25/20 06/25/20 23:56 02:16 04:08 WBC RBC Hgb Hct MCV MCH MCHC RDW Lymph % (Auto) [place] % (Auto) Lymph # (Auto) [place] # (Auto) Baso # (Auto) Seg Neutrophils % Seg Neuts % (Manual) Lymphocytes % (Manual) Nucleated RBC % Seg Neutrophils # Seg Neutrophils # Man Lymphocytes # (Manual) Monocytes # (Manual) Eosinophils # (Manual) PT INR APTT D-Dimer Heparin Anti-Xa Level ABG pH 7.454 H POC ABG pCO2 56.9 H POC ABG pO2 61.0 L ABG pO2 ABG HCO3 ABG O2 Saturation ABG Base Excess ABG Hemoglobin ABG Oxyhemoglobin ABG Sodium 134.3 L ABG Potassium ABG Chloride 92.0 L ABG Glucose 246 H Oxyhemoglobin Carboxyhemoglobin Sodium 134 L Potassium Chloride 89.7 L Carbon Dioxide 36 H BUN Creatinine 0.3 L Glucose 254 H POC Glucose 225 H Lactic Acid Calcium Magnesium Ferritin Total Bilirubin Direct Bilirubin AST ALT Alkaline Phosphatase Lactate Dehydrogenase C-Reactive Protein Total Protein Albumin 2.9 L Triglycerides Lipase Arterial Blood Glucose 246 H Arterial Blood Ionized Calcium Urine WBC (Auto) Coronavirus (PCR) SARS-CoV-2 IgG Ab Crossmatch 06/25/20 06/25/20 06/25/20 05:44 11:35 17:33 WBC RBC Hgb Hct MCV MCH MCHC RDW Lymph % (Auto) [place] % (Auto) Lymph # (Auto) [place] # (Auto) Baso # (Auto) Seg Neutrophils % Seg Neuts % (Manual) Lymphocytes % (Manual) Nucleated RBC % Seg Neutrophils # Seg Neutrophils # Man Lymphocytes # (Manual) Monocytes # (Manual) Eosinophils # (Manual) PT INR APTT D-Dimer Heparin Anti-Xa Level ABG pH POC ABG pCO2 POC ABG pO2 ABG pO2 ABG HCO3 ABG O2 Saturation ABG Base Excess ABG Hemoglobin ABG Oxyhemoglobin ABG Sodium ABG Potassium ABG Chloride ABG Glucose Oxyhemoglobin Carboxyhemoglobin Sodium Potassium Chloride Carbon Dioxide BUN Creatinine Glucose POC Glucose 170 H 175 H 229 H Lactic Acid Calcium Magnesium Ferritin Total Bilirubin Direct Bilirubin AST ALT Alkaline Phosphatase Lactate Dehydrogenase C-Reactive Protein Total Protein Albumin Triglycerides Lipase Arterial Blood Glucose Arterial Blood Ionized Calcium Urine WBC (Auto) Coronavirus (PCR) SARS-CoV-2 IgG Ab Crossmatch 06/25/20 06/26/20 06/26/20 23:55 02:17 02:17 WBC RBC Hgb 10.0 L Hct 30.4 L MCV MCH MCHC RDW Lymph % (Auto) [place] % (Auto) Lymph # (Auto) [place] # (Auto) Baso # (Auto) Seg Neutrophils % Seg Neuts % (Manual) Lymphocytes % (Manual) Nucleated RBC % Seg Neutrophils # Seg Neutrophils # Man Lymphocytes # (Manual) Monocytes # (Manual) Eosinophils # (Manual) PT INR APTT D-Dimer Heparin Anti-Xa Level ABG pH POC ABG pCO2 POC ABG pO2 ABG pO2 ABG HCO3 ABG O2 Saturation ABG Base Excess ABG Hemoglobin ABG Oxyhemoglobin ABG Sodium ABG Potassium ABG Chloride ABG Glucose Oxyhemoglobin Carboxyhemoglobin Sodium 136 L Potassium Chloride 90.1 L Carbon Dioxide 39 H BUN Creatinine 0.2 L Glucose 232 H POC Glucose 192 H Lactic Acid Calcium Magnesium Ferritin Total Bilirubin Direct Bilirubin AST ALT Alkaline Phosphatase Lactate Dehydrogenase C-Reactive Protein Total Protein 6.1 L Albumin 2.9 L Triglycerides Lipase Arterial Blood Glucose Arterial Blood Ionized Calcium Urine WBC (Auto) Coronavirus (PCR) SARS-CoV-2 IgG Ab Crossmatch 06/26/20 06/26/20 06/26/20 04:15 04:49 05:28 WBC RBC Hgb Hct MCV MCH MCHC RDW Lymph % (Auto) [place] % (Auto) Lymph # (Auto) [place] # (Auto) Baso # (Auto) Seg Neutrophils % Seg Neuts % (Manual) Lymphocytes % (Manual) Nucleated RBC % Seg Neutrophils # Seg Neutrophils # Man Lymphocytes # (Manual) Monocytes # (Manual) Eosinophils # (Manual) PT INR APTT D-Dimer Heparin Anti-Xa Level ABG pH 7.453 H POC ABG pCO2 59.6 H POC ABG pO2 ABG pO2 ABG HCO3 ABG O2 Saturation ABG Base Excess ABG Hemoglobin 10.0 L ABG Oxyhemoglobin ABG Sodium 134.2 L ABG Potassium 3.3 L ABG Chloride 92.0 L ABG Glucose 305 H Oxyhemoglobin Carboxyhemoglobin Sodium Potassium Chloride Carbon Dioxide BUN Creatinine Glucose POC Glucose 234 H Lactic Acid Calcium Magnesium Ferritin Total Bilirubin Direct Bilirubin AST ALT Alkaline Phosphatase Lactate Dehydrogenase C-Reactive Protein Total Protein Albumin Triglycerides 203 H Lipase Arterial Blood Glucose 305 H Arterial Blood Ionized Calcium Urine WBC (Auto) Coronavirus (PCR) SARS-CoV-2 IgG Ab Crossmatch 06/26/20 06/26/20 06/26/20 11:58 17:58 21:32 WBC RBC Hgb Hct MCV MCH MCHC RDW Lymph % (Auto) [place] % (Auto) Lymph # (Auto) [place] # (Auto) Baso # (Auto) Seg Neutrophils % Seg Neuts % (Manual) Lymphocytes % (Manual) Nucleated RBC % Seg Neutrophils # Seg Neutrophils # Man Lymphocytes # (Manual) Monocytes # (Manual) Eosinophils # (Manual) PT INR APTT D-Dimer Heparin Anti-Xa Level ABG pH POC ABG pCO2 POC ABG pO2 ABG pO2 ABG HCO3 ABG O2 Saturation ABG Base Excess ABG Hemoglobin ABG Oxyhemoglobin ABG Sodium ABG Potassium ABG Chloride ABG Glucose Oxyhemoglobin Carboxyhemoglobin Sodium Potassium Chloride Carbon Dioxide BUN Creatinine Glucose POC Glucose 198 H 193 H 191 H Lactic Acid Calcium Magnesium Ferritin Total Bilirubin Direct Bilirubin AST ALT Alkaline Phosphatase Lactate Dehydrogenase C-Reactive Protein Total Protein Albumin Triglycerides Lipase Arterial Blood Glucose Arterial Blood Ionized Calcium Urine WBC (Auto) Coronavirus (PCR) SARS-CoV-2 IgG Ab Crossmatch 06/26/20 06/27/20 06/27/20 23:40 04:35 05:32 WBC RBC Hgb Hct MCV MCH MCHC RDW Lymph % (Auto) [place] % (Auto) Lymph # (Auto) [place] # (Auto) Baso # (Auto) Seg Neutrophils % Seg Neuts % (Manual) Lymphocytes % (Manual) Nucleated RBC % Seg Neutrophils # Seg Neutrophils # Man Lymphocytes # (Manual) Monocytes # (Manual) Eosinophils # (Manual) PT INR APTT D-Dimer Heparin Anti-Xa Level ABG pH 7.464 H POC ABG pCO2 60.8 H POC ABG pO2 ABG pO2 ABG HCO3 ABG O2 Saturation ABG Base Excess ABG Hemoglobin 10.1 L ABG Oxyhemoglobin ABG Sodium ABG Potassium 2.9 L ABG Chloride 92.0 L ABG Glucose 298 H Oxyhemoglobin Carboxyhemoglobin Sodium Potassium Chloride Carbon Dioxide BUN Creatinine Glucose POC Glucose 241 H 211 H Lactic Acid Calcium Magnesium Ferritin Total Bilirubin Direct Bilirubin AST ALT Alkaline Phosphatase Lactate Dehydrogenase C-Reactive Protein Total Protein Albumin Triglycerides Lipase Arterial Blood Glucose 298 H Arterial Blood Ionized Calcium Urine WBC (Auto) Coronavirus (PCR) SARS-CoV-2 IgG Ab Crossmatch 06/27/20 06/27/20 06/27/20 12:37 18:08 20:52 WBC RBC Hgb Hct MCV MCH MCHC RDW Lymph % (Auto) [place] % (Auto) Lymph # (Auto) [place] # (Auto) Baso # (Auto) Seg Neutrophils % Seg Neuts % (Manual) Lymphocytes % (Manual) Nucleated RBC % Seg Neutrophils # Seg Neutrophils # Man Lymphocytes # (Manual) Monocytes # (Manual) Eosinophils # (Manual) PT INR APTT D-Dimer Heparin Anti-Xa Level ABG pH POC ABG pCO2 POC ABG pO2 ABG pO2 ABG HCO3 ABG O2 Saturation ABG Base Excess ABG Hemoglobin ABG Oxyhemoglobin ABG Sodium ABG Potassium ABG Chloride ABG Glucose Oxyhemoglobin Carboxyhemoglobin Sodium Potassium Chloride Carbon Dioxide BUN Creatinine Glucose POC Glucose 182 H 197 H 195 H Lactic Acid Calcium Magnesium Ferritin Total Bilirubin Direct Bilirubin AST ALT Alkaline Phosphatase Lactate Dehydrogenase C-Reactive Protein Total Protein Albumin Triglycerides Lipase Arterial Blood Glucose Arterial Blood Ionized Calcium Urine WBC (Auto) Coronavirus (PCR) SARS-CoV-2 IgG Ab Crossmatch 06/27/20 06/28/20 06/28/20 Unknown 04:17 04:50 WBC RBC Hgb Hct MCV MCH MCHC RDW Lymph % (Auto) [place] % (Auto) Lymph # (Auto) [place] # (Auto) Baso # (Auto) Seg Neutrophils % Seg Neuts % (Manual) Lymphocytes % (Manual) Nucleated RBC % Seg Neutrophils # Seg Neutrophils # Man Lymphocytes # (Manual) Monocytes # (Manual) Eosinophils # (Manual) PT INR APTT D-Dimer Heparin Anti-Xa Level ABG pH POC ABG pCO2 58.6 H POC ABG pO2 60.1 L ABG pO2 ABG HCO3 ABG O2 Saturation ABG Base Excess ABG Hemoglobin 10.0 L ABG Oxyhemoglobin ABG Sodium 125.3 L ABG Potassium ABG Chloride 93.0 L ABG Glucose 308 H Oxyhemoglobin Carboxyhemoglobin Sodium Potassium 2.9 L* Chloride 93.4 L Carbon Dioxide 42 H* BUN Creatinine 0.3 L Glucose 211 H POC Glucose 252 H Lactic Acid Calcium 8.1 L Magnesium Ferritin Total Bilirubin Direct Bilirubin AST ALT Alkaline Phosphatase Lactate Dehydrogenase C-Reactive Protein Total Protein 5.1 L Albumin 2.4 L Triglycerides Lipase Arterial Blood Glucose 308 H Arterial Blood Ionized Calcium Urine WBC (Auto) Coronavirus (PCR) SARS-CoV-2 IgG Ab Crossmatch 06/28/20 06/28/20 06/28/20 06:35 06:35 11:36 WBC 18.9 H RBC 2.85 L Hgb 9.5 L Hct 28.4 L MCV 100 H MCH 33 H MCHC RDW 17.3 H Lymph % (Auto) [place] % (Auto) Lymph # (Auto) [place] # (Auto) Baso # (Auto) Seg Neutrophils % 88.6 H Seg Neuts % (Manual) 95.0 H Lymphocytes % (Manual) 1.0 L Nucleated RBC % Seg Neutrophils # 15.9 H Seg Neutrophils # Man 18.0 H Lymphocytes # (Manual) 0.2 L Monocytes # (Manual) Eosinophils # (Manual) PT INR APTT D-Dimer Heparin Anti-Xa Level ABG pH POC ABG pCO2 POC ABG pO2 ABG pO2 ABG HCO3 ABG O2 Saturation ABG Base Excess ABG Hemoglobin ABG Oxyhemoglobin ABG Sodium ABG Potassium ABG Chloride ABG Glucose Oxyhemoglobin Carboxyhemoglobin Sodium Potassium Chloride 94.2 L Carbon Dioxide 38 H BUN Creatinine 0.3 L Glucose 228 H POC Glucose 243 H Lactic Acid Calcium Magnesium Ferritin Total Bilirubin Direct Bilirubin AST ALT Alkaline Phosphatase Lactate Dehydrogenase C-Reactive Protein Total Protein 6.1 L Albumin 2.7 L Triglycerides Lipase Arterial Blood Glucose Arterial Blood Ionized Calcium Urine WBC (Auto) Coronavirus (PCR) SARS-CoV-2 IgG Ab Crossmatch 06/28/20 06/28/2020 16:53 21:10 00:06 WBC RBC Hgb Hct MCV MCH MCHC RDW Lymph % (Auto) [place] % (Auto) Lymph # (Auto) [place] # (Auto) Baso # (Auto) Seg Neutrophils % Seg Neuts % (Manual) Lymphocytes % (Manual) Nucleated RBC % Seg Neutrophils # Seg Neutrophils # Man Lymphocytes # (Manual) Monocytes # (Manual) Eosinophils # (Manual) PT INR APTT D-Dimer Heparin Anti-Xa Level ABG pH POC ABG pCO2 POC ABG pO2 ABG pO2 ABG HCO3 ABG O2 Saturation ABG Base Excess ABG Hemoglobin ABG Oxyhemoglobin ABG Sodium ABG Potassium ABG Chloride ABG Glucose Oxyhemoglobin Carboxyhemoglobin Sodium Potassium Chloride Carbon Dioxide BUN Creatinine Glucose POC Glucose 211 H 195 H 200 H Lactic Acid Calcium Magnesium Ferritin Total Bilirubin Direct Bilirubin AST ALT Alkaline Phosphatase Lactate Dehydrogenase C-Reactive Protein Total Protein Albumin Triglycerides Lipase Arterial Blood Glucose Arterial Blood Ionized Calcium Urine WBC (Auto) Coronavirus (PCR) SARS-CoV-2 IgG Ab Crossmatch 06/29/20 06/29/20 06/29/20 03:11 04:00 04:00 WBC 18.8 H RBC 2.82 L Hgb 10.1 L Hct 28.5 L MCV 101 H MCH 36 H MCHC 36 H RDW 17.5 H Lymph % (Auto) 10.7 L [place] % (Auto) Lymph # (Auto) [place] # (Auto) 1.0 H Baso # (Auto) 0.3 H Seg Neutrophils % 82.2 H Seg Neuts % (Manual) Lymphocytes % (Manual) Nucleated RBC % Seg Neutrophils # 15.5 H Seg Neutrophils # Man Lymphocytes # (Manual) Monocytes # (Manual) Eosinophils # (Manual) PT INR APTT D-Dimer Heparin Anti-Xa Level ABG pH POC ABG pCO2 57.5 H POC ABG pO2 69.1 L ABG pO2 ABG HCO3 ABG O2 Saturation ABG Base Excess ABG Hemoglobin 10.2 L ABG Oxyhemoglobin 92.3 L ABG Sodium 130.7 L ABG Potassium 3.2 L ABG Chloride 93.0 L ABG Glucose 228 H Oxyhemoglobin Carboxyhemoglobin Sodium 134 L Potassium 3.3 L Chloride 89.5 L Carbon Dioxide 40 H BUN Creatinine 0.2 L Glucose 190 H POC Glucose Lactic Acid Calcium Magnesium Ferritin Total Bilirubin Direct Bilirubin AST < 5 L ALT < 5 L Alkaline Phosphatase Lactate Dehydrogenase C-Reactive Protein Total Protein 5.9 L Albumin 2.2 L Triglycerides Lipase Arterial Blood Glucose 228 H Arterial Blood Ionized Calcium Urine WBC (Auto) Coronavirus (PCR) SARS-CoV-2 IgG Ab Crossmatch 06/29/20 06/29/20 06/29/20 05:00 05:23 09:36 WBC RBC Hgb Hct MCV MCH MCHC RDW Lymph % (Auto) [place] % (Auto) Lymph # (Auto) [place] # (Auto) Baso # (Auto) Seg Neutrophils % Seg Neuts % (Manual) Lymphocytes % (Manual) Nucleated RBC % Seg Neutrophils # Seg Neutrophils # Man Lymphocytes # (Manual) Monocytes # (Manual) Eosinophils # (Manual) PT INR APTT D-Dimer Heparin Anti-Xa Level ABG pH POC ABG pCO2 POC ABG pO2 ABG pO2 ABG HCO3 ABG O2 Saturation ABG Base Excess ABG Hemoglobin ABG Oxyhemoglobin ABG Sodium ABG Potassium ABG Chloride ABG Glucose Oxyhemoglobin Carboxyhemoglobin Sodium Potassium Chloride Carbon Dioxide BUN Creatinine Glucose POC Glucose 165 H Lactic Acid Calcium Magnesium Ferritin Total Bilirubin Direct Bilirubin AST ALT Alkaline Phosphatase Lactate Dehydrogenase C-Reactive Protein Total Protein Albumin Triglycerides 1544 H 1799 H Lipase Arterial Blood Glucose Arterial Blood Ionized Calcium Urine WBC (Auto) Coronavirus (PCR) SARS-CoV-2 IgG Ab Crossmatch 06/29/20 06/29/20 06/29/20 09:36 12:02 18:00 WBC RBC Hgb Hct MCV MCH MCHC RDW Lymph % (Auto) [place] % (Auto) Lymph # (Auto) [place] # (Auto) Baso # (Auto) Seg Neutrophils % Seg Neuts % (Manual) Lymphocytes % (Manual) Nucleated RBC % Seg Neutrophils # Seg Neutrophils # Man Lymphocytes # (Manual) Monocytes # (Manual) Eosinophils # (Manual) PT INR APTT D-Dimer Heparin Anti-Xa Level ABG pH POC ABG pCO2 POC ABG pO2 ABG pO2 ABG HCO3 ABG O2 Saturation ABG Base Excess ABG Hemoglobin ABG Oxyhemoglobin ABG Sodium ABG Potassium ABG Chloride ABG Glucose Oxyhemoglobin Carboxyhemoglobin Sodium Potassium Chloride Carbon Dioxide BUN Creatinine Glucose POC Glucose 197 H 187 H Lactic Acid Calcium Magnesium Ferritin Total Bilirubin Direct Bilirubin AST ALT Alkaline Phosphatase Lactate Dehydrogenase C-Reactive Protein Total Protein Albumin Triglycerides Lipase 86 H Arterial Blood Glucose Arterial Blood Ionized Calcium Urine WBC (Auto) Coronavirus (PCR) SARS-CoV-2 IgG Ab Crossmatch 06/29/20 06/30/20 06/30/20 23:33 03:46 05:50 WBC RBC Hgb Hct MCV MCH MCHC RDW Lymph % (Auto) [place] % (Auto) Lymph # (Auto) [place] # (Auto) Baso # (Auto) Seg Neutrophils % Seg Neuts % (Manual) Lymphocytes % (Manual) Nucleated RBC % Seg Neutrophils # Seg Neutrophils # Man Lymphocytes # (Manual) Monocytes # (Manual) Eosinophils # (Manual) PT INR APTT D-Dimer Heparin Anti-Xa Level ABG pH 7.466 H POC ABG pCO2 57.3 H POC ABG pO2 66.1 L ABG pO2 ABG HCO3 ABG O2 Saturation ABG Base Excess ABG Hemoglobin 10.2 L ABG Oxyhemoglobin 92.3 L ABG Sodium 134.4 L ABG Potassium 3.2 L ABG Chloride 94.0 L ABG Glucose 178 H Oxyhemoglobin Carboxyhemoglobin Sodium Potassium Chloride Carbon Dioxide BUN Creatinine Glucose POC Glucose 170 H 170 H Lactic Acid Calcium Magnesium Ferritin Total Bilirubin Direct Bilirubin AST ALT Alkaline Phosphatase Lactate Dehydrogenase C-Reactive Protein Total Protein Albumin Triglycerides Lipase Arterial Blood Glucose 178 H Arterial Blood Ionized Calcium Urine WBC (Auto) Coronavirus (PCR) SARS-CoV-2 IgG Ab Crossmatch 06/30/20 06/30/20 06/30/20 07:00 07:00 12:04 WBC 15.6 H RBC 2.91 L Hgb 9.8 L Hct 29.7 L MCV 102 H MCH 34 H MCHC RDW 17.8 H Lymph % (Auto) [place] % (Auto) Lymph # (Auto) [place] # (Auto) Baso # (Auto) Seg Neutrophils % Seg Neuts % (Manual) Lymphocytes % (Manual) 5.0 L Nucleated RBC % Seg Neutrophils # Seg Neutrophils # Man 14.8 H Lymphocytes # (Manual) 0.8 L Monocytes # (Manual) Eosinophils # (Manual) PT INR APTT D-Dimer Heparin Anti-Xa Level ABG pH POC ABG pCO2 POC ABG pO2 ABG pO2 ABG HCO3 ABG O2 Saturation ABG Base Excess ABG Hemoglobin ABG Oxyhemoglobin ABG Sodium ABG Potassium ABG Chloride ABG Glucose Oxyhemoglobin Carboxyhemoglobin Sodium Potassium Chloride 93.3 L Carbon Dioxide 43 H* BUN Creatinine 0.3 L Glucose 260 H POC Glucose 245 H Lactic Acid Calcium Magnesium Ferritin Total Bilirubin Direct Bilirubin AST ALT Alkaline Phosphatase Lactate Dehydrogenase C-Reactive Protein Total Protein Albumin 2.8 L Triglycerides 452 H Lipase Arterial Blood Glucose Arterial Blood Ionized Calcium Urine WBC (Auto) Coronavirus (PCR) SARS-CoV-2 IgG Ab Crossmatch 06/30/20 07/01/20 07/01/20 17:32 00:02 05:02 WBC RBC Hgb Hct MCV MCH MCHC RDW Lymph % (Auto) [place] % (Auto) Lymph # (Auto) [place] # (Auto) Baso # (Auto) Seg Neutrophils % Seg Neuts % (Manual) Lymphocytes % (Manual) Nucleated RBC % Seg Neutrophils # Seg Neutrophils # Man Lymphocytes # (Manual) Monocytes # (Manual) Eosinophils # (Manual) PT INR APTT D-Dimer Heparin Anti-Xa Level ABG pH POC ABG pCO2 58.1 H POC ABG pO2 ABG pO2 ABG HCO3 ABG O2 Saturation ABG Base Excess ABG Hemoglobin 11.2 L ABG Oxyhemoglobin ABG Sodium 132.7 L ABG Potassium ABG Chloride 92.0 L ABG Glucose 238 H Oxyhemoglobin Carboxyhemoglobin Sodium Potassium Chloride Carbon Dioxide BUN Creatinine Glucose POC Glucose 209 H 208 H Lactic Acid Calcium Magnesium Ferritin Total Bilirubin Direct Bilirubin AST ALT Alkaline Phosphatase Lactate Dehydrogenase C-Reactive Protein Total Protein Albumin Triglycerides Lipase Arterial Blood Glucose 238 H Arterial Blood Ionized Calcium Urine WBC (Auto) Coronavirus (PCR) SARS-CoV-2 IgG Ab Crossmatch 07/01/20 07/01/20 07/01/20 06:16 06:41 06:41 WBC 18.1 H RBC 2.33 L Hgb 7.1 L Hct 21.3 L D MCV MCH MCHC RDW Lymph % (Auto) [place] % (Auto) Lymph # (Auto) [place] # (Auto) Baso # (Auto) Seg Neutrophils % Seg Neuts % (Manual) 82.0 H Lymphocytes % (Manual) 7.0 L Nucleated RBC % 1.0 H Seg Neutrophils # Seg Neutrophils # Man 14.8 H Lymphocytes # (Manual) Monocytes # (Manual) 1.1 H Eosinophils # (Manual) 0.5 H PT INR APTT D-Dimer Heparin Anti-Xa Level < 0.10 L ABG pH POC ABG pCO2 POC ABG pO2 ABG pO2 ABG HCO3 ABG O2 Saturation ABG Base Excess ABG Hemoglobin ABG Oxyhemoglobin ABG Sodium ABG Potassium ABG Chloride ABG Glucose Oxyhemoglobin Carboxyhemoglobin Sodium Potassium Chloride Carbon Dioxide BUN Creatinine Glucose POC Glucose 180 H Lactic Acid Calcium Magnesium Ferritin Total Bilirubin Direct Bilirubin AST ALT Alkaline Phosphatase Lactate Dehydrogenase C-Reactive Protein Total Protein Albumin Triglycerides Lipase Arterial Blood Glucose Arterial Blood Ionized Calcium Urine WBC (Auto) Coronavirus (PCR) SARS-CoV-2 IgG Ab Crossmatch 07/01/20 07/01/20 07/01/20 08:11 12:04 16:16 WBC RBC Hgb Hct MCV MCH MCHC RDW Lymph % (Auto) [place] % (Auto) Lymph # (Auto) [place] # (Auto) Baso # (Auto) Seg Neutrophils % Seg Neuts % (Manual) Lymphocytes % (Manual) Nucleated RBC % Seg Neutrophils # Seg Neutrophils # Man Lymphocytes # (Manual) Monocytes # (Manual) Eosinophils # (Manual) PT INR APTT D-Dimer Heparin Anti-Xa Level 1.02 H ABG pH POC ABG pCO2 POC ABG pO2 ABG pO2 ABG HCO3 ABG O2 Saturation ABG Base Excess ABG Hemoglobin ABG Oxyhemoglobin ABG Sodium ABG Potassium ABG Chloride ABG Glucose Oxyhemoglobin Carboxyhemoglobin Sodium 135 L Potassium 3.0 L Chloride 93.1 L Carbon Dioxide 40 H BUN Creatinine 0.3 L Glucose 140 H POC Glucose 223 H Lactic Acid Calcium Magnesium Ferritin Total Bilirubin Direct Bilirubin AST ALT Alkaline Phosphatase Lactate Dehydrogenase C-Reactive Protein Total Protein Albumin Triglycerides Lipase Arterial Blood Glucose Arterial Blood Ionized Calcium Urine WBC (Auto) Coronavirus (PCR) SARS-CoV-2 IgG Ab Crossmatch 07/01/20 07/01/20 07/02/20 17:09 23:19 00:56 WBC RBC Hgb Hct MCV MCH MCHC RDW Lymph % (Auto) [place] % (Auto) Lymph # (Auto) [place] # (Auto) Baso # (Auto) Seg Neutrophils % Seg Neuts % (Manual) Lymphocytes % (Manual) Nucleated RBC % Seg Neutrophils # Seg Neutrophils # Man Lymphocytes # (Manual) Monocytes # (Manual) Eosinophils # (Manual) PT INR APTT D-Dimer Heparin Anti-Xa Level 0.22 L ABG pH POC ABG pCO2 POC ABG pO2 ABG pO2 ABG HCO3 ABG O2 Saturation ABG Base Excess ABG Hemoglobin ABG Oxyhemoglobin ABG Sodium ABG Potassium ABG Chloride ABG Glucose Oxyhemoglobin Carboxyhemoglobin Sodium Potassium Chloride Carbon Dioxide BUN Creatinine Glucose POC Glucose 233 H 255 H Lactic Acid Calcium Magnesium Ferritin Total Bilirubin Direct Bilirubin AST ALT Alkaline Phosphatase Lactate Dehydrogenase C-Reactive Protein Total Protein Albumin Triglycerides Lipase Arterial Blood Glucose Arterial Blood Ionized Calcium Urine WBC (Auto) Coronavirus (PCR) SARS-CoV-2 IgG Ab Crossmatch 07/02/20 07/02/20 07/02/20 03:51 05:35 11:39 WBC RBC Hgb Hct MCV MCH MCHC RDW Lymph % (Auto) [place] % (Auto) Lymph # (Auto) [place] # (Auto) Baso # (Auto) Seg Neutrophils % Seg Neuts % (Manual) Lymphocytes % (Manual) Nucleated RBC % Seg Neutrophils # Seg Neutrophils # Man Lymphocytes # (Manual) Monocytes # (Manual) Eosinophils # (Manual) PT INR APTT D-Dimer Heparin Anti-Xa Level ABG pH POC ABG pCO2 54.9 H POC ABG pO2 52.1 L ABG pO2 ABG HCO3 ABG O2 Saturation ABG Base Excess ABG Hemoglobin 11.9 L ABG Oxyhemoglobin 82.8 L ABG Sodium 130.2 L ABG Potassium ABG Chloride 92.0 L ABG Glucose 249 H Oxyhemoglobin Carboxyhemoglobin 1.9 H Sodium Potassium Chloride Carbon Dioxide BUN Creatinine Glucose POC Glucose 205 H 235 H Lactic Acid Calcium Magnesium Ferritin Total Bilirubin Direct Bilirubin AST ALT Alkaline Phosphatase Lactate Dehydrogenase C-Reactive Protein Total Protein Albumin Triglycerides Lipase Arterial Blood Glucose 249 H Arterial Blood Ionized Calcium Urine WBC (Auto) Coronavirus (PCR) SARS-CoV-2 IgG Ab Crossmatch 07/02/20 07/02/20 07/02/20 16:08 16:08 17:54 WBC 19.8 H RBC 3.28 L Hgb 10.7 L D Hct 32.7 L D MCV 100 H MCH 33 H MCHC RDW 17.2 H Lymph % (Auto) [place] % (Auto) Lymph # (Auto) [place] # (Auto) Baso # (Auto) Seg Neutrophils % Seg Neuts % (Manual) Lymphocytes % (Manual) Nucleated RBC % Seg Neutrophils # Seg Neutrophils # Man Lymphocytes # (Manual) Monocytes # (Manual) Eosinophils # (Manual) PT INR APTT D-Dimer Heparin Anti-Xa Level ABG pH POC ABG pCO2 POC ABG pO2 ABG pO2 ABG HCO3 ABG O2 Saturation ABG Base Excess ABG Hemoglobin ABG Oxyhemoglobin ABG Sodium ABG Potassium ABG Chloride ABG Glucose Oxyhemoglobin Carboxyhemoglobin Sodium 136 L Potassium Chloride 92.4 L Carbon Dioxide 35 H BUN Creatinine 0.3 L Glucose 203 H POC Glucose 175 H Lactic Acid Calcium Magnesium Ferritin Total Bilirubin Direct Bilirubin AST ALT Alkaline Phosphatase Lactate Dehydrogenase C-Reactive Protein Total Protein Albumin Triglycerides Lipase Arterial Blood Glucose Arterial Blood Ionized Calcium Urine WBC (Auto) Coronavirus (PCR) SARS-CoV-2 IgG Ab Crossmatch 07/02/20 07/03/20 07/03/20 23:46 03:25 05:54 WBC RBC Hgb Hct MCV MCH MCHC RDW Lymph % (Auto) [place] % (Auto) Lymph # (Auto) [place] # (Auto) Baso # (Auto) Seg Neutrophils % Seg Neuts % (Manual) Lymphocytes % (Manual) Nucleated RBC % Seg Neutrophils # Seg Neutrophils # Man Lymphocytes # (Manual) Monocytes # (Manual) Eosinophils # (Manual) PT INR APTT D-Dimer Heparin Anti-Xa Level ABG pH 7.468 H POC ABG pCO2 51.5 H POC ABG pO2 ABG pO2 ABG HCO3 ABG O2 Saturation ABG Base Excess ABG Hemoglobin ABG Oxyhemoglobin ABG Sodium 130.2 L ABG Potassium ABG Chloride 91.0 L ABG Glucose 210 H Oxyhemoglobin Carboxyhemoglobin 1.6 H Sodium Potassium Chloride Carbon Dioxide BUN Creatinine Glucose POC Glucose 173 H 125 H Lactic Acid Calcium Magnesium Ferritin Total Bilirubin Direct Bilirubin AST ALT Alkaline Phosphatase Lactate Dehydrogenase C-Reactive Protein Total Protein Albumin Triglycerides Lipase Arterial Blood Glucose 210 H Arterial Blood Ionized Calcium Urine WBC (Auto) Coronavirus (PCR) SARS-CoV-2 IgG Ab Crossmatch 07/03/20 07/03/20 07/03/20 11:43 12:20 12:20 WBC 16.5 H RBC 3.13 L Hgb 10.4 L Hct 31.8 L MCV 102 H MCH 33 H MCHC RDW 17.2 H Lymph % (Auto) [place] % (Auto) Lymph # (Auto) [place] # (Auto) Baso # (Auto) Seg Neutrophils % Seg Neuts % (Manual) Lymphocytes % (Manual) Nucleated RBC % Seg Neutrophils # Seg Neutrophils # Man Lymphocytes # (Manual) Monocytes # (Manual) Eosinophils # (Manual) PT INR APTT D-Dimer Heparin Anti-Xa Level ABG pH POC ABG pCO2 POC ABG pO2 ABG pO2 ABG HCO3 ABG O2 Saturation ABG Base Excess ABG Hemoglobin ABG Oxyhemoglobin ABG Sodium ABG Potassium ABG Chloride ABG Glucose Oxyhemoglobin Carboxyhemoglobin Sodium 132 L Potassium Chloride 88.5 L Carbon Dioxide 37 H BUN Creatinine 0.3 L Glucose 230 H POC Glucose 223 H Lactic Acid Calcium Magnesium Ferritin Total Bilirubin Direct Bilirubin AST ALT Alkaline Phosphatase Lactate Dehydrogenase C-Reactive Protein Total Protein Albumin Triglycerides Lipase Arterial Blood Glucose Arterial Blood Ionized Calcium Urine WBC (Auto) Coronavirus (PCR) SARS-CoV-2 IgG Ab Crossmatch 07/03/20 07/03/20 07/04/20 17:24 21:41 00:54 WBC RBC Hgb Hct MCV MCH MCHC RDW Lymph % (Auto) [place] % (Auto) Lymph # (Auto) [place] # (Auto) Baso # (Auto) Seg Neutrophils % Seg Neuts % (Manual) Lymphocytes % (Manual) Nucleated RBC % Seg Neutrophils # Seg Neutrophils # Man Lymphocytes # (Manual) Monocytes # (Manual) Eosinophils # (Manual) PT INR APTT D-Dimer Heparin Anti-Xa Level ABG pH POC ABG pCO2 POC ABG pO2 ABG pO2 ABG HCO3 ABG O2 Saturation ABG Base Excess ABG Hemoglobin ABG Oxyhemoglobin ABG Sodium ABG Potassium ABG Chloride ABG Glucose Oxyhemoglobin Carboxyhemoglobin Sodium Potassium Chloride Carbon Dioxide BUN Creatinine Glucose POC Glucose 163 H 220 H 195 H Lactic Acid Calcium Magnesium Ferritin Total Bilirubin Direct Bilirubin AST ALT Alkaline Phosphatase Lactate Dehydrogenase C-Reactive Protein Total Protein Albumin Triglycerides Lipase Arterial Blood Glucose Arterial Blood Ionized Calcium Urine WBC (Auto) Coronavirus (PCR) SARS-CoV-2 IgG Ab Crossmatch 07/04/20 07/04/20 07/04/20 03:25 04:00 04:00 WBC 14.9 H RBC 2.91 L Hgb 9.5 L Hct 29.2 L MCV 100 H MCH 33 H MCHC RDW 16.7 H Lymph % (Auto) 8.4 L [place] % (Auto) Lymph # (Auto) [place] # (Auto) 1.1 H Baso # (Auto) Seg Neutrophils % 84.2 H Seg Neuts % (Manual) Lymphocytes % (Manual) Nucleated RBC % Seg Neutrophils # 12.6 H Seg Neutrophils # Man Lymphocytes # (Manual) Monocytes # (Manual) Eosinophils # (Manual) PT INR APTT D-Dimer Heparin Anti-Xa Level ABG pH 7.474 H POC ABG pCO2 POC ABG pO2 51.8 L ABG pO2 ABG HCO3 ABG O2 Saturation ABG Base Excess ABG Hemoglobin ABG Oxyhemoglobin ABG Sodium ABG Potassium ABG Chloride ABG Glucose Oxyhemoglobin Carboxyhemoglobin Sodium Potassium 3.4 L Chloride 92.1 L Carbon Dioxide 34 H BUN Creatinine 0.3 L Glucose 173 H POC Glucose Lactic Acid Calcium Magnesium Ferritin Total Bilirubin Direct Bilirubin AST ALT Alkaline Phosphatase Lactate Dehydrogenase C-Reactive Protein Total Protein Albumin Triglycerides Lipase Arterial Blood Glucose Arterial Blood Ionized Calcium Urine WBC (Auto) Coronavirus (PCR) SARS-CoV-2 IgG Ab Crossmatch 07/04/20 07/04/20 07/04/20 06:18 11:39 17:18 WBC RBC Hgb Hct MCV MCH MCHC RDW Lymph % (Auto) [place] % (Auto) Lymph # (Auto) [place] # (Auto) Baso # (Auto) Seg Neutrophils % Seg Neuts % (Manual) Lymphocytes % (Manual) Nucleated RBC % Seg Neutrophils # Seg Neutrophils # Man Lymphocytes # (Manual) Monocytes # (Manual) Eosinophils # (Manual) PT INR APTT D-Dimer Heparin Anti-Xa Level ABG pH POC ABG pCO2 POC ABG pO2 ABG pO2 ABG HCO3 ABG O2 Saturation ABG Base Excess ABG Hemoglobin ABG Oxyhemoglobin ABG Sodium ABG Potassium ABG Chloride ABG Glucose Oxyhemoglobin Carboxyhemoglobin Sodium Potassium Chloride Carbon Dioxide BUN Creatinine Glucose POC Glucose 158 H 257 H 148 H Lactic Acid Calcium Magnesium Ferritin Total Bilirubin Direct Bilirubin AST ALT Alkaline Phosphatase Lactate Dehydrogenase C-Reactive Protein Total Protein Albumin Triglycerides Lipase Arterial Blood Glucose Arterial Blood Ionized Calcium Urine WBC (Auto) Coronavirus (PCR) SARS-CoV-2 IgG Ab Crossmatch 07/04/20 07/05/20 07/05/20 23:23 03:13 05:18 WBC 13.3 H RBC 2.90 L Hgb 9.8 L Hct 29.3 L MCV 101 H MCH 34 H MCHC RDW 17.0 H Lymph % (Auto) 11.1 L [place] % (Auto) Lymph # (Auto) [place] # (Auto) Baso # (Auto) Seg Neutrophils % 82.3 H Seg Neuts % (Manual) Lymphocytes % (Manual) Nucleated RBC % Seg Neutrophils # 10.9 H Seg Neutrophils # Man Lymphocytes # (Manual) Monocytes # (Manual) Eosinophils # (Manual) PT INR APTT D-Dimer Heparin Anti-Xa Level ABG pH 7.48 H POC ABG pCO2 52.0 H POC ABG pO2 ABG pO2 ABG HCO3 ABG O2 Saturation ABG Base Excess ABG Hemoglobin 10.0 L ABG Oxyhemoglobin ABG Sodium 131.0 L ABG Potassium 3.3 L ABG Chloride 93.0 L ABG Glucose 177 H Oxyhemoglobin Carboxyhemoglobin Sodium Potassium Chloride Carbon Dioxide BUN Creatinine Glucose POC Glucose 227 H Lactic Acid Calcium Magnesium Ferritin Total Bilirubin Direct Bilirubin AST ALT Alkaline Phosphatase Lactate Dehydrogenase C-Reactive Protein Total Protein Albumin Triglycerides Lipase Arterial Blood Glucose 177 H Arterial Blood Ionized Calcium Urine WBC (Auto) Coronavirus (PCR) SARS-CoV-2 IgG Ab Crossmatch 07/05/20 07/05/20 07/05/20 05:18 05:25 05:57 WBC RBC Hgb Hct MCV MCH MCHC RDW Lymph % (Auto) [place] % (Auto) Lymph # (Auto) [place] # (Auto) Baso # (Auto) Seg Neutrophils % Seg Neuts % (Manual) Lymphocytes % (Manual) Nucleated RBC % Seg Neutrophils # Seg Neutrophils # Man Lymphocytes # (Manual) Monocytes # (Manual) Eosinophils # (Manual) PT INR APTT D-Dimer Heparin Anti-Xa Level ABG pH 7.519 H POC ABG pCO2 POC ABG pO2 198.6 H ABG pO2 ABG HCO3 ABG O2 Saturation ABG Base Excess ABG Hemoglobin 10.3 L ABG Oxyhemoglobin 98.7 H ABG Sodium 133.6 L ABG Potassium 3.3 L ABG Chloride 93.0 L ABG Glucose 175 H Oxyhemoglobin Carboxyhemoglobin Sodium Potassium 3.4 L Chloride 92.5 L Carbon Dioxide 36 H BUN Creatinine 0.3 L Glucose 148 H POC Glucose 170 H Lactic Acid Calcium Magnesium Ferritin Total Bilirubin Direct Bilirubin AST ALT Alkaline Phosphatase Lactate Dehydrogenase C-Reactive Protein Total Protein Albumin Triglycerides Lipase Arterial Blood Glucose 175 H Arterial Blood Ionized Calcium Urine WBC (Auto) Coronavirus (PCR) SARS-CoV-2 IgG Ab Crossmatch 07/05/20 07/05/20 07/06/20 11:37 18:39 00:04 WBC RBC Hgb Hct MCV MCH MCHC RDW Lymph % (Auto) [place] % (Auto) Lymph # (Auto) [place] # (Auto) Baso # (Auto) Seg Neutrophils % Seg Neuts % (Manual) Lymphocytes % (Manual) Nucleated RBC % Seg Neutrophils # Seg Neutrophils # Man Lymphocytes # (Manual) Monocytes # (Manual) Eosinophils # (Manual) PT INR APTT D-Dimer Heparin Anti-Xa Level ABG pH POC ABG pCO2 POC ABG pO2 ABG pO2 ABG HCO3 ABG O2 Saturation ABG Base Excess ABG Hemoglobin ABG Oxyhemoglobin ABG Sodium ABG Potassium ABG Chloride ABG Glucose Oxyhemoglobin Carboxyhemoglobin Sodium Potassium Chloride Carbon Dioxide BUN Creatinine Glucose POC Glucose 195 H 200 H 222 H Lactic Acid Calcium Magnesium Ferritin Total Bilirubin Direct Bilirubin AST ALT Alkaline Phosphatase Lactate Dehydrogenase C-Reactive Protein Total Protein Albumin Triglycerides Lipase Arterial Blood Glucose Arterial Blood Ionized Calcium Urine WBC (Auto) Coronavirus (PCR) SARS-CoV-2 IgG Ab Crossmatch 07/06/20 07/06/20 07/06/20 05:25 06:52 06:52 WBC 15.8 H RBC 3.17 L Hgb 10.4 L Hct 31.5 L MCV 99 H MCH 33 H MCHC RDW 17.0 H Lymph % (Auto) [place] % (Auto) Lymph # (Auto) [place] # (Auto) Baso # (Auto) Seg Neutrophils % Seg Neuts % (Manual) Lymphocytes % (Manual) Nucleated RBC % Seg Neutrophils # Seg Neutrophils # Man Lymphocytes # (Manual) Monocytes # (Manual) Eosinophils # (Manual) PT INR APTT D-Dimer Heparin Anti-Xa Level ABG pH POC ABG pCO2 POC ABG pO2 ABG pO2 ABG HCO3 ABG O2 Saturation ABG Base Excess ABG Hemoglobin ABG Oxyhemoglobin ABG Sodium ABG Potassium ABG Chloride ABG Glucose Oxyhemoglobin Carboxyhemoglobin Sodium 135 L Potassium 3.4 L Chloride 91.9 L Carbon Dioxide 38 H BUN Creatinine 0.3 L Glucose 189 H POC Glucose 165 H Lactic Acid Calcium Magnesium Ferritin Total Bilirubin Direct Bilirubin AST ALT Alkaline Phosphatase Lactate Dehydrogenase C-Reactive Protein Total Protein Albumin Triglycerides Lipase Arterial Blood Glucose Arterial Blood Ionized Calcium Urine WBC (Auto) Coronavirus (PCR) SARS-CoV-2 IgG Ab Crossmatch 07/06/20 07/06/20 07/06/20 13:01 18:04 23:08 WBC RBC Hgb Hct MCV MCH MCHC RDW Lymph % (Auto) [place] % (Auto) Lymph # (Auto) [place] # (Auto) Baso # (Auto) Seg Neutrophils % Seg Neuts % (Manual) Lymphocytes % (Manual) Nucleated RBC % Seg Neutrophils # Seg Neutrophils # Man Lymphocytes # (Manual) Monocytes # (Manual) Eosinophils # (Manual) PT INR APTT D-Dimer Heparin Anti-Xa Level ABG pH POC ABG pCO2 POC ABG pO2 ABG pO2 ABG HCO3 ABG O2 Saturation ABG Base Excess ABG Hemoglobin ABG Oxyhemoglobin ABG Sodium ABG Potassium ABG Chloride ABG Glucose Oxyhemoglobin Carboxyhemoglobin Sodium Potassium Chloride Carbon Dioxide BUN Creatinine Glucose POC Glucose 195 H 169 H 173 H Lactic Acid Calcium Magnesium Ferritin Total Bilirubin Direct Bilirubin AST ALT Alkaline Phosphatase Lactate Dehydrogenase C-Reactive Protein Total Protein Albumin Triglycerides Lipase Arterial Blood Glucose Arterial Blood Ionized Calcium Urine WBC (Auto) Coronavirus (PCR) SARS-CoV-2 IgG Ab Crossmatch 07/07/20 07/07/20 07/07/20 05:35 05:35 05:39 WBC 17.6 H RBC 3.16 L Hgb 10.4 L Hct 31.5 L MCV 100 H MCH 33 H MCHC RDW 16.7 H Lymph % (Auto) 11.1 L [place] % (Auto) Lymph # (Auto) [place] # (Auto) 1.0 H Baso # (Auto) Seg Neutrophils % 83.0 H Seg Neuts % (Manual) Lymphocytes % (Manual) Nucleated RBC % Seg Neutrophils # 14.6 H Seg Neutrophils # Man Lymphocytes # (Manual) Monocytes # (Manual) Eosinophils # (Manual) PT INR APTT D-Dimer Heparin Anti-Xa Level ABG pH POC ABG pCO2 POC ABG pO2 ABG pO2 ABG HCO3 ABG O2 Saturation ABG Base Excess ABG Hemoglobin ABG Oxyhemoglobin ABG Sodium ABG Potassium ABG Chloride ABG Glucose Oxyhemoglobin Carboxyhemoglobin Sodium 135 L Potassium 3.4 L Chloride 94.3 L Carbon Dioxide 32 H BUN Creatinine 0.2 L Glucose 240 H POC Glucose 191 H Lactic Acid Calcium Magnesium Ferritin Total Bilirubin Direct Bilirubin AST ALT Alkaline Phosphatase Lactate Dehydrogenase C-Reactive Protein Total Protein Albumin Triglycerides Lipase Arterial Blood Glucose Arterial Blood Ionized Calcium Urine WBC (Auto) Coronavirus (PCR) SARS-CoV-2 IgG Ab Crossmatch 07/07/20 07/07/20 07/07/20 12:08 16:39 23:41 WBC RBC Hgb Hct MCV MCH MCHC RDW Lymph % (Auto) [place] % (Auto) Lymph # (Auto) [place] # (Auto) Baso # (Auto) Seg Neutrophils % Seg Neuts % (Manual) Lymphocytes % (Manual) Nucleated RBC % Seg Neutrophils # Seg Neutrophils # Man Lymphocytes # (Manual) Monocytes # (Manual) Eosinophils # (Manual) PT INR APTT D-Dimer Heparin Anti-Xa Level ABG pH POC ABG pCO2 POC ABG pO2 ABG pO2 ABG HCO3 ABG O2 Saturation ABG Base Excess ABG Hemoglobin ABG Oxyhemoglobin ABG Sodium ABG Potassium ABG Chloride ABG Glucose Oxyhemoglobin Carboxyhemoglobin Sodium Potassium Chloride Carbon Dioxide BUN Creatinine Glucose POC Glucose 248 H 209 H 231 H Lactic Acid Calcium Magnesium Ferritin Total Bilirubin Direct Bilirubin AST ALT Alkaline Phosphatase Lactate Dehydrogenase C-Reactive Protein Total Protein Albumin Triglycerides Lipase Arterial Blood Glucose Arterial Blood Ionized Calcium Urine WBC (Auto) Coronavirus (PCR) SARS-CoV-2 IgG Ab Crossmatch 07/08/20 07/08/20 07/08/20 04:58 04:58 05:38 WBC 21.0 H RBC 2.86 L Hgb 9.2 L Hct 28.6 L MCV 100 H MCH MCHC RDW 16.7 H Lymph % (Auto) [place] % (Auto) Lymph # (Auto) [place] # (Auto) Baso # (Auto) Seg Neutrophils % Seg Neuts % (Manual) 93.0 H Lymphocytes % (Manual) 3.0 L Nucleated RBC % Seg Neutrophils # Seg Neutrophils # Man 19.5 H Lymphocytes # (Manual) 0.6 L Monocytes # (Manual) Eosinophils # (Manual) PT INR APTT D-Dimer Heparin Anti-Xa Level ABG pH POC ABG pCO2 POC ABG pO2 ABG pO2 ABG HCO3 ABG O2 Saturation ABG Base Excess ABG Hemoglobin ABG Oxyhemoglobin ABG Sodium ABG Potassium ABG Chloride ABG Glucose Oxyhemoglobin Carboxyhemoglobin Sodium Potassium 3.0 L Chloride Carbon Dioxide BUN Creatinine 0.2 L Glucose 201 H POC Glucose 161 H Lactic Acid Calcium 7.9 L D Magnesium Ferritin Total Bilirubin Direct Bilirubin AST ALT Alkaline Phosphatase Lactate Dehydrogenase C-Reactive Protein Total Protein Albumin Triglycerides Lipase Arterial Blood Glucose Arterial Blood Ionized Calcium Urine WBC (Auto) Coronavirus (PCR) SARS-CoV-2 IgG Ab Crossmatch 07/08/20 07/08/20 07/08/20 12:19 16:26 Unknown WBC RBC Hgb Hct MCV MCH MCHC RDW Lymph % (Auto) [place] % (Auto) Lymph # (Auto) [place] # (Auto) Baso # (Auto) Seg Neutrophils % Seg Neuts % (Manual) Lymphocytes % (Manual) Nucleated RBC % Seg Neutrophils # Seg Neutrophils # Man Lymphocytes # (Manual) Monocytes # (Manual) Eosinophils # (Manual) PT INR APTT D-Dimer Heparin Anti-Xa Level ABG pH POC ABG pCO2 POC ABG pO2 ABG pO2 75.3 L ABG HCO3 34.3 H ABG O2 Saturation ABG Base Excess 8.7 H ABG Hemoglobin 10.2 L ABG Oxyhemoglobin ABG Sodium ABG Potassium ABG Chloride ABG Glucose Oxyhemoglobin 93.7 L Carboxyhemoglobin Sodium Potassium Chloride Carbon Dioxide BUN Creatinine Glucose POC Glucose 152 H 173 H Lactic Acid Calcium Magnesium Ferritin Total Bilirubin Direct Bilirubin AST ALT Alkaline Phosphatase Lactate Dehydrogenase C-Reactive Protein Total Protein Albumin Triglycerides Lipase Arterial Blood Glucose Arterial Blood Ionized Calcium Urine WBC (Auto) Coronavirus (PCR) SARS-CoV-2 IgG Ab Crossmatch 07/09/20 07/09/20 07/09/20 00:01 06:00 11:55 WBC RBC Hgb Hct MCV MCH MCHC RDW Lymph % (Auto) [place] % (Auto) Lymph # (Auto) [place] # (Auto) Baso # (Auto) Seg Neutrophils % Seg Neuts % (Manual) Lymphocytes % (Manual) Nucleated RBC % Seg Neutrophils # Seg Neutrophils # Man Lymphocytes # (Manual) Monocytes # (Manual) Eosinophils # (Manual) PT INR APTT D-Dimer Heparin Anti-Xa Level ABG pH POC ABG pCO2 POC ABG pO2 ABG pO2 ABG HCO3 ABG O2 Saturation ABG Base Excess ABG Hemoglobin ABG Oxyhemoglobin ABG Sodium ABG Potassium ABG Chloride ABG Glucose Oxyhemoglobin Carboxyhemoglobin Sodium Potassium Chloride Carbon Dioxide BUN Creatinine Glucose POC Glucose 207 H 141 H 228 H Lactic Acid Calcium Magnesium Ferritin Total Bilirubin Direct Bilirubin AST ALT Alkaline Phosphatase Lactate Dehydrogenase C-Reactive Protein Total Protein Albumin Triglycerides Lipase Arterial Blood Glucose Arterial Blood Ionized Calcium Urine WBC (Auto) Coronavirus (PCR) SARS-CoV-2 IgG Ab Crossmatch 07/09/20 07/09/20 07/09/20 16:47 23:53 Unknown WBC RBC Hgb Hct MCV MCH MCHC RDW Lymph % (Auto) [place] % (Auto) Lymph # (Auto) [place] # (Auto) Baso # (Auto) Seg Neutrophils % Seg Neuts % (Manual) Lymphocytes % (Manual) Nucleated RBC % Seg Neutrophils # Seg Neutrophils # Man Lymphocytes # (Manual) Monocytes # (Manual) Eosinophils # (Manual) PT INR APTT D-Dimer Heparin Anti-Xa Level ABG pH POC ABG pCO2 POC ABG pO2 ABG pO2 ABG HCO3 ABG O2 Saturation ABG Base Excess ABG Hemoglobin ABG Oxyhemoglobin ABG Sodium ABG Potassium ABG Chloride ABG Glucose Oxyhemoglobin Carboxyhemoglobin Sodium 132 L Potassium Chloride 92.7 L Carbon Dioxide 35 H BUN Creatinine 0.2 L Glucose 234 H POC Glucose 136 H 219 H Lactic Acid Calcium Magnesium Ferritin Total Bilirubin Direct Bilirubin AST ALT Alkaline Phosphatase Lactate Dehydrogenase C-Reactive Protein Total Protein Albumin Triglycerides Lipase Arterial Blood Glucose Arterial Blood Ionized Calcium Urine WBC (Auto) Coronavirus (PCR) SARS-CoV-2 IgG Ab Crossmatch 07/10/20 07/10/20 07/10/20 05:20 12:05 18:38 WBC RBC Hgb Hct MCV MCH MCHC RDW Lymph % (Auto) [place] % (Auto) Lymph # (Auto) [place] # (Auto) Baso # (Auto) Seg Neutrophils % Seg Neuts % (Manual) Lymphocytes % (Manual) Nucleated RBC % Seg Neutrophils # Seg Neutrophils # Man Lymphocytes # (Manual) Monocytes # (Manual) Eosinophils # (Manual) PT INR APTT D-Dimer Heparin Anti-Xa Level ABG pH POC ABG pCO2 POC ABG pO2 ABG pO2 ABG HCO3 ABG O2 Saturation ABG Base Excess ABG Hemoglobin ABG Oxyhemoglobin ABG Sodium ABG Potassium ABG Chloride ABG Glucose Oxyhemoglobin Carboxyhemoglobin Sodium Potassium Chloride Carbon Dioxide BUN Creatinine Glucose POC Glucose 221 H 174 H 152 H Lactic Acid Calcium Magnesium Ferritin Total Bilirubin Direct Bilirubin AST ALT Alkaline Phosphatase Lactate Dehydrogenase C-Reactive Protein Total Protein Albumin Triglycerides Lipase Arterial Blood Glucose Arterial Blood Ionized Calcium Urine WBC (Auto) Coronavirus (PCR) SARS-CoV-2 IgG Ab Crossmatch 07/11/20 07/11/20 07/11/20 00:16 05:42 08:13 WBC 11.9 H RBC 3.13 L Hgb 10.2 L Hct 31.2 L MCV 100 H MCH 33 H MCHC RDW 16.4 H Lymph % (Auto) [place] % (Auto) 9.3 H Lymph # (Auto) [place] # (Auto) 1.1 H Baso # (Auto) Seg Neutrophils % 72.7 H Seg Neuts % (Manual) Lymphocytes % (Manual) Nucleated RBC % Seg Neutrophils # 8.7 H Seg Neutrophils # Man Lymphocytes # (Manual) Monocytes # (Manual) Eosinophils # (Manual) PT INR APTT D-Dimer Heparin Anti-Xa Level ABG pH POC ABG pCO2 POC ABG pO2 ABG pO2 ABG HCO3 ABG O2 Saturation ABG Base Excess ABG Hemoglobin ABG Oxyhemoglobin ABG Sodium ABG Potassium ABG Chloride ABG Glucose Oxyhemoglobin Carboxyhemoglobin Sodium Potassium Chloride Carbon Dioxide BUN Creatinine Glucose POC Glucose 170 H 186 H Lactic Acid Calcium Magnesium Ferritin Total Bilirubin Direct Bilirubin AST ALT Alkaline Phosphatase Lactate Dehydrogenase C-Reactive Protein Total Protein Albumin Triglycerides Lipase Arterial Blood Glucose Arterial Blood Ionized Calcium Urine WBC (Auto) Coronavirus (PCR) SARS-CoV-2 IgG Ab Crossmatch 07/11/20 07/11/20 07/11/20 08:13 11:35 18:07 WBC RBC Hgb Hct MCV MCH MCHC RDW Lymph % (Auto) [place] % (Auto) Lymph # (Auto) [place] # (Auto) Baso # (Auto) Seg Neutrophils % Seg Neuts % (Manual) Lymphocytes % (Manual) Nucleated RBC % Seg Neutrophils # Seg Neutrophils # Man Lymphocytes # (Manual) Monocytes # (Manual) Eosinophils # (Manual) PT INR APTT D-Dimer Heparin Anti-Xa Level ABG pH POC ABG pCO2 POC ABG pO2 ABG pO2 ABG HCO3 ABG O2 Saturation ABG Base Excess ABG Hemoglobin ABG Oxyhemoglobin ABG Sodium ABG Potassium ABG Chloride ABG Glucose Oxyhemoglobin Carboxyhemoglobin Sodium 135 L Potassium Chloride 92.8 L Carbon Dioxide 38 H BUN Creatinine 0.2 L Glucose 132 H POC Glucose 129 H 156 H Lactic Acid Calcium Magnesium Ferritin Total Bilirubin Direct Bilirubin AST ALT Alkaline Phosphatase Lactate Dehydrogenase C-Reactive Protein Total Protein Albumin Triglycerides Lipase Arterial Blood Glucose Arterial Blood Ionized Calcium Urine WBC (Auto) Coronavirus (PCR) SARS-CoV-2 IgG Ab Crossmatch 07/11/20 07/11/20 07/12/20 18:36 23:18 05:28 WBC RBC Hgb Hct MCV MCH MCHC RDW Lymph % (Auto) [place] % (Auto) Lymph # (Auto) [place] # (Auto) Baso # (Auto) Seg Neutrophils % Seg Neuts % (Manual) Lymphocytes % (Manual) Nucleated RBC % Seg Neutrophils # Seg Neutrophils # Man Lymphocytes # (Manual) Monocytes # (Manual) Eosinophils # (Manual) PT INR APTT D-Dimer Heparin Anti-Xa Level ABG pH POC ABG pCO2 POC ABG pO2 70.9 L ABG pO2 ABG HCO3 ABG O2 Saturation ABG Base Excess ABG Hemoglobin 10.8 L ABG Oxyhemoglobin 92.5 L ABG Sodium 131.8 L ABG Potassium 3.2 L ABG Chloride 91.0 L ABG Glucose 181 H Oxyhemoglobin Carboxyhemoglobin Sodium Potassium Chloride Carbon Dioxide BUN Creatinine Glucose POC Glucose 189 H 190 H Lactic Acid Calcium Magnesium Ferritin Total Bilirubin Direct Bilirubin AST ALT Alkaline Phosphatase Lactate Dehydrogenase C-Reactive Protein Total Protein Albumin Triglycerides Lipase Arterial Blood Glucose 181 H Arterial Blood Ionized Calcium Urine WBC (Auto) Coronavirus (PCR) SARS-CoV-2 IgG Ab Crossmatch 07/12/20 07/12/20 07/12/20 11:33 17:45 23:59 WBC RBC Hgb Hct MCV MCH MCHC RDW Lymph % (Auto) [place] % (Auto) Lymph # (Auto) [place] # (Auto) Baso # (Auto) Seg Neutrophils % Seg Neuts % (Manual) Lymphocytes % (Manual) Nucleated RBC % Seg Neutrophils # Seg Neutrophils # Man Lymphocytes # (Manual) Monocytes # (Manual) Eosinophils # (Manual) PT INR APTT D-Dimer Heparin Anti-Xa Level ABG pH POC ABG pCO2 POC ABG pO2 ABG pO2 ABG HCO3 ABG O2 Saturation ABG Base Excess ABG Hemoglobin ABG Oxyhemoglobin ABG Sodium ABG Potassium ABG Chloride ABG Glucose Oxyhemoglobin Carboxyhemoglobin Sodium Potassium Chloride Carbon Dioxide BUN Creatinine Glucose POC Glucose 151 H 211 H 169 H Lactic Acid Calcium Magnesium Ferritin Total Bilirubin Direct Bilirubin AST ALT Alkaline Phosphatase Lactate Dehydrogenase C-Reactive Protein Total Protein Albumin Triglycerides Lipase Arterial Blood Glucose Arterial Blood Ionized Calcium Urine WBC (Auto) Coronavirus (PCR) SARS-CoV-2 IgG Ab Crossmatch 07/13/20 07/13/20 07/13/20 05:44 08:31 08:31 WBC 21.3 H RBC 2.92 L Hgb 9.7 L Hct 28.7 L MCV 98 H MCH 33 H MCHC RDW 16.8 H Lymph % (Auto) [place] % (Auto) Lymph # (Auto) [place] # (Auto) Baso # (Auto) Seg Neutrophils % Seg Neuts % (Manual) 96.0 H Lymphocytes % (Manual) 2.0 L Nucleated RBC % Seg Neutrophils # Seg Neutrophils # Man 20.4 H Lymphocytes # (Manual) 0.4 L Monocytes # (Manual) Eosinophils # (Manual) PT INR APTT D-Dimer Heparin Anti-Xa Level ABG pH POC ABG pCO2 POC ABG pO2 ABG pO2 ABG HCO3 ABG O2 Saturation ABG Base Excess ABG Hemoglobin ABG Oxyhemoglobin ABG Sodium ABG Potassium ABG Chloride ABG Glucose Oxyhemoglobin Carboxyhemoglobin Sodium Potassium 2.9 L* D Chloride 94.4 L Carbon Dioxide 37 H BUN Creatinine 0.2 L Glucose 166 H POC Glucose 122 H Lactic Acid Calcium Magnesium Ferritin Total Bilirubin Direct Bilirubin AST ALT Alkaline Phosphatase Lactate Dehydrogenase C-Reactive Protein Total Protein Albumin Triglycerides Lipase Arterial Blood Glucose Arterial Blood Ionized Calcium Urine WBC (Auto) Coronavirus (PCR) SARS-CoV-2 IgG Ab Crossmatch 07/13/20 07/13/20 07/13/20 11:54 13:52 17:40 WBC RBC Hgb Hct MCV MCH MCHC RDW Lymph % (Auto) [place] % (Auto) Lymph # (Auto) [place] # (Auto) Baso # (Auto) Seg Neutrophils % Seg Neuts % (Manual) Lymphocytes % (Manual) Nucleated RBC % Seg Neutrophils # Seg Neutrophils # Man Lymphocytes # (Manual) Monocytes # (Manual) Eosinophils # (Manual) PT INR APTT D-Dimer Heparin Anti-Xa Level ABG pH 7.477 H POC ABG pCO2 54.4 H POC ABG pO2 126.8 H ABG pO2 ABG HCO3 ABG O2 Saturation ABG Base Excess ABG Hemoglobin 11.5 L ABG Oxyhemoglobin ABG Sodium ABG Potassium 3.2 L ABG Chloride 92.0 L ABG Glucose 169 H Oxyhemoglobin Carboxyhemoglobin Sodium Potassium Chloride Carbon Dioxide BUN Creatinine Glucose POC Glucose 132 H 128 H Lactic Acid Calcium Magnesium Ferritin Total Bilirubin Direct Bilirubin AST ALT Alkaline Phosphatase Lactate Dehydrogenase C-Reactive Protein Total Protein Albumin Triglycerides Lipase Arterial Blood Glucose 169 H Arterial Blood Ionized Calcium Urine WBC (Auto) Coronavirus (PCR) SARS-CoV-2 IgG Ab Crossmatch 07/14/20 07/14/20 07/15/20 07:49 17:09 05:27 WBC RBC Hgb Hct MCV MCH MCHC RDW Lymph % (Auto) [place] % (Auto) Lymph # (Auto) [place] # (Auto) Baso # (Auto) Seg Neutrophils % Seg Neuts % (Manual) Lymphocytes % (Manual) Nucleated RBC % Seg Neutrophils # Seg Neutrophils # Man Lymphocytes # (Manual) Monocytes # (Manual) Eosinophils # (Manual) PT INR APTT D-Dimer Heparin Anti-Xa Level ABG pH POC ABG pCO2 POC ABG pO2 ABG pO2 ABG HCO3 ABG O2 Saturation ABG Base Excess ABG Hemoglobin ABG Oxyhemoglobin ABG Sodium ABG Potassium ABG Chloride ABG Glucose Oxyhemoglobin Carboxyhemoglobin Sodium Potassium 2.7 L* Chloride 94.0 L Carbon Dioxide 37 H BUN Creatinine 0.3 L Glucose 110 H POC Glucose 152 H 61 L Lactic Acid Calcium Magnesium Ferritin Total Bilirubin Direct Bilirubin AST ALT Alkaline Phosphatase Lactate Dehydrogenase C-Reactive Protein Total Protein Albumin Triglycerides Lipase Arterial Blood Glucose Arterial Blood Ionized Calcium Urine WBC (Auto) Coronavirus (PCR) SARS-CoV-2 IgG Ab Crossmatch 07/15/20 07/15/20 07/15/20 05:31 11:49 17:18 WBC RBC Hgb Hct MCV MCH MCHC RDW Lymph % (Auto) [place] % (Auto) Lymph # (Auto) [place] # (Auto) Baso # (Auto) Seg Neutrophils % Seg Neuts % (Manual) Lymphocytes % (Manual) Nucleated RBC % Seg Neutrophils # Seg Neutrophils # Man Lymphocytes # (Manual) Monocytes # (Manual) Eosinophils # (Manual) PT INR APTT D-Dimer Heparin Anti-Xa Level ABG pH POC ABG pCO2 POC ABG pO2 ABG pO2 ABG HCO3 ABG O2 Saturation ABG Base Excess ABG Hemoglobin ABG Oxyhemoglobin ABG Sodium ABG Potassium ABG Chloride ABG Glucose Oxyhemoglobin Carboxyhemoglobin Sodium Potassium 3.2 L Chloride 91.2 L Carbon Dioxide 33 H BUN Creatinine 0.3 L Glucose 139 H POC Glucose 148 H 196 H Lactic Acid Calcium Magnesium Ferritin Total Bilirubin Direct Bilirubin AST ALT Alkaline Phosphatase Lactate Dehydrogenase C-Reactive Protein Total Protein Albumin Triglycerides Lipase Arterial Blood Glucose Arterial Blood Ionized Calcium Urine WBC (Auto) Coronavirus (PCR) SARS-CoV-2 IgG Ab Crossmatch 07/15/20 07/16/20 07/16/20 23:08 05:18 05:19 WBC 11.3 H RBC 3.10 L Hgb 10.0 L Hct 30.3 L MCV 98 H MCH MCHC RDW 16.3 H Lymph % (Auto) [place] % (Auto) Lymph # (Auto) [place] # (Auto) Baso # (Auto) Seg Neutrophils % Seg Neuts % (Manual) Lymphocytes % (Manual) Nucleated RBC % Seg Neutrophils # Seg Neutrophils # Man Lymphocytes # (Manual) Monocytes # (Manual) Eosinophils # (Manual) PT INR APTT D-Dimer Heparin Anti-Xa Level ABG pH POC ABG pCO2 POC ABG pO2 ABG pO2 ABG HCO3 ABG O2 Saturation ABG Base Excess ABG Hemoglobin ABG Oxyhemoglobin ABG Sodium ABG Potassium ABG Chloride ABG Glucose Oxyhemoglobin Carboxyhemoglobin Sodium Potassium Chloride Carbon Dioxide BUN Creatinine Glucose POC Glucose 131 H 160 H Lactic Acid Calcium Magnesium Ferritin Total Bilirubin Direct Bilirubin AST ALT Alkaline Phosphatase Lactate Dehydrogenase C-Reactive Protein Total Protein Albumin Triglycerides Lipase Arterial Blood Glucose Arterial Blood Ionized Calcium Urine WBC (Auto) Coronavirus (PCR) SARS-CoV-2 IgG Ab Crossmatch 07/16/20 07/16/20 07/16/20 05:19 11:45 17:17 WBC RBC Hgb Hct MCV MCH MCHC RDW Lymph % (Auto) [place] % (Auto) Lymph # (Auto) [place] # (Auto) Baso # (Auto) Seg Neutrophils % Seg Neuts % (Manual) Lymphocytes % (Manual) Nucleated RBC % Seg Neutrophils # Seg Neutrophils # Man Lymphocytes # (Manual) Monocytes # (Manual) Eosinophils # (Manual) PT INR APTT D-Dimer Heparin Anti-Xa Level ABG pH POC ABG pCO2 POC ABG pO2 ABG pO2 ABG HCO3 ABG O2 Saturation ABG Base Excess ABG Hemoglobin ABG Oxyhemoglobin ABG Sodium ABG Potassium ABG Chloride ABG Glucose Oxyhemoglobin Carboxyhemoglobin Sodium 132 L Potassium 3.4 L Chloride 89.9 L Carbon Dioxide 39 H BUN Creatinine 0.3 L Glucose 174 H POC Glucose 169 H 143 H Lactic Acid Calcium Magnesium Ferritin Total Bilirubin Direct Bilirubin AST ALT Alkaline Phosphatase Lactate Dehydrogenase C-Reactive Protein Total Protein Albumin Triglycerides Lipase Arterial Blood Glucose Arterial Blood Ionized Calcium Urine WBC (Auto) Coronavirus (PCR) SARS-CoV-2 IgG Ab Crossmatch 07/16/20 07/17/20 07/17/20 23:54 05:32 11:26 WBC RBC Hgb Hct MCV MCH MCHC RDW Lymph % (Auto) [place] % (Auto) Lymph # (Auto) [place] # (Auto) Baso # (Auto) Seg Neutrophils % Seg Neuts % (Manual) Lymphocytes % (Manual) Nucleated RBC % Seg Neutrophils # Seg Neutrophils # Man Lymphocytes # (Manual) Monocytes # (Manual) Eosinophils # (Manual) PT INR APTT D-Dimer Heparin Anti-Xa Level ABG pH POC ABG pCO2 POC ABG pO2 ABG pO2 ABG HCO3 ABG O2 Saturation ABG Base Excess ABG Hemoglobin ABG Oxyhemoglobin ABG Sodium ABG Potassium ABG Chloride ABG Glucose Oxyhemoglobin Carboxyhemoglobin Sodium Potassium Chloride Carbon Dioxide BUN Creatinine Glucose POC Glucose 147 H 149 H 211 H Lactic Acid Calcium Magnesium Ferritin Total Bilirubin Direct Bilirubin AST ALT Alkaline Phosphatase Lactate Dehydrogenase C-Reactive Protein Total Protein Albumin Triglycerides Lipase Arterial Blood Glucose Arterial Blood Ionized Calcium Urine WBC (Auto) Coronavirus (PCR) SARS-CoV-2 IgG Ab Crossmatch 07/17/20 07/17/20 07/18/20 18:16 23:12 06:15 WBC RBC Hgb Hct MCV MCH MCHC RDW Lymph % (Auto) [place] % (Auto) Lymph # (Auto) [place] # (Auto) Baso # (Auto) Seg Neutrophils % Seg Neuts % (Manual) Lymphocytes % (Manual) Nucleated RBC % Seg Neutrophils # Seg Neutrophils # Man Lymphocytes # (Manual) Monocytes # (Manual) Eosinophils # (Manual) PT INR APTT D-Dimer Heparin Anti-Xa Level ABG pH POC ABG pCO2 POC ABG pO2 ABG pO2 ABG HCO3 ABG O2 Saturation ABG Base Excess ABG Hemoglobin ABG Oxyhemoglobin ABG Sodium ABG Potassium ABG Chloride ABG Glucose Oxyhemoglobin Carboxyhemoglobin Sodium Potassium Chloride Carbon Dioxide BUN Creatinine Glucose POC Glucose 161 H 136 H 108 H Lactic Acid Calcium Magnesium Ferritin Total Bilirubin Direct Bilirubin AST ALT Alkaline Phosphatase Lactate Dehydrogenase C-Reactive Protein Total Protein Albumin Triglycerides Lipase Arterial Blood Glucose Arterial Blood Ionized Calcium Urine WBC (Auto) Coronavirus (PCR) SARS-CoV-2 IgG Ab Crossmatch 07/18/20 07/18/20 07/18/20 08:47 08:47 11:50 WBC 17.7 H RBC 3.29 L Hgb 10.5 L Hct 31.8 L MCV 97 H MCH MCHC RDW 16.9 H Lymph % (Auto) [place] % (Auto) 8.6 H Lymph # (Auto) [place] # (Auto) 1.5 H Baso # (Auto) Seg Neutrophils % 74.6 H Seg Neuts % (Manual) Lymphocytes % (Manual) Nucleated RBC % Seg Neutrophils # 13.2 H Seg Neutrophils # Man Lymphocytes # (Manual) Monocytes # (Manual) Eosinophils # (Manual) PT INR APTT D-Dimer Heparin Anti-Xa Level ABG pH POC ABG pCO2 POC ABG pO2 ABG pO2 ABG HCO3 ABG O2 Saturation ABG Base Excess ABG Hemoglobin ABG Oxyhemoglobin ABG Sodium ABG Potassium ABG Chloride ABG Glucose Oxyhemoglobin Carboxyhemoglobin Sodium Potassium 2.8 L* Chloride 92.6 L Carbon Dioxide 40 H BUN Creatinine 0.3 L Glucose 177 H POC Glucose 178 H Lactic Acid Calcium Magnesium Ferritin Total Bilirubin Direct Bilirubin AST ALT Alkaline Phosphatase Lactate Dehydrogenase C-Reactive Protein Total Protein Albumin Triglycerides Lipase Arterial Blood Glucose Arterial Blood Ionized Calcium Urine WBC (Auto) Coronavirus (PCR) SARS-CoV-2 IgG Ab Crossmatch 07/18/20 07/18/20 07/19/20 17:18 23:33 05:22 WBC RBC Hgb Hct MCV MCH MCHC RDW Lymph % (Auto) [place] % (Auto) Lymph # (Auto) [place] # (Auto) Baso # (Auto) Seg Neutrophils % Seg Neuts % (Manual) Lymphocytes % (Manual) Nucleated RBC % Seg Neutrophils # Seg Neutrophils # Man Lymphocytes # (Manual) Monocytes # (Manual) Eosinophils # (Manual) PT INR APTT D-Dimer Heparin Anti-Xa Level ABG pH POC ABG pCO2 POC ABG pO2 ABG pO2 ABG HCO3 ABG O2 Saturation ABG Base Excess ABG Hemoglobin ABG Oxyhemoglobin ABG Sodium ABG Potassium ABG Chloride ABG Glucose Oxyhemoglobin Carboxyhemoglobin Sodium Potassium Chloride Carbon Dioxide BUN Creatinine Glucose POC Glucose 171 H 162 H 166 H Lactic Acid Calcium Magnesium Ferritin Total Bilirubin Direct Bilirubin AST ALT Alkaline Phosphatase Lactate Dehydrogenase C-Reactive Protein Total Protein Albumin Triglycerides Lipase Arterial Blood Glucose Arterial Blood Ionized Calcium Urine WBC (Auto) Coronavirus (PCR) SARS-CoV-2 IgG Ab Crossmatch 07/19/20 07/19/20 07/19/20 12:00 16:27 23:41 WBC RBC Hgb Hct MCV MCH MCHC RDW Lymph % (Auto) [place] % (Auto) Lymph # (Auto) [place] # (Auto) Baso # (Auto) Seg Neutrophils % Seg Neuts % (Manual) Lymphocytes % (Manual) Nucleated RBC % Seg Neutrophils # Seg Neutrophils # Man Lymphocytes # (Manual) Monocytes # (Manual) Eosinophils # (Manual) PT INR APTT D-Dimer Heparin Anti-Xa Level ABG pH POC ABG pCO2 POC ABG pO2 ABG pO2 ABG HCO3 ABG O2 Saturation ABG Base Excess ABG Hemoglobin ABG Oxyhemoglobin ABG Sodium ABG Potassium ABG Chloride ABG Glucose Oxyhemoglobin Carboxyhemoglobin Sodium Potassium Chloride Carbon Dioxide BUN Creatinine Glucose POC Glucose 201 H 205 H 106 H Lactic Acid Calcium Magnesium Ferritin Total Bilirubin Direct Bilirubin AST ALT Alkaline Phosphatase Lactate Dehydrogenase C-Reactive Protein Total Protein Albumin Triglycerides Lipase Arterial Blood Glucose Arterial Blood Ionized Calcium Urine WBC (Auto) Coronavirus (PCR) SARS-CoV-2 IgG Ab Crossmatch 07/20/20 07/20/20 07/20/20 05:28 11:18 17:30 WBC RBC Hgb Hct MCV MCH MCHC RDW Lymph % (Auto) [place] % (Auto) Lymph # (Auto) [place] # (Auto) Baso # (Auto) Seg Neutrophils % Seg Neuts % (Manual) Lymphocytes % (Manual) Nucleated RBC % Seg Neutrophils # Seg Neutrophils # Man Lymphocytes # (Manual) Monocytes # (Manual) Eosinophils # (Manual) PT INR APTT D-Dimer Heparin Anti-Xa Level ABG pH POC ABG pCO2 POC ABG pO2 ABG pO2 ABG HCO3 ABG O2 Saturation ABG Base Excess ABG Hemoglobin ABG Oxyhemoglobin ABG Sodium ABG Potassium ABG Chloride ABG Glucose Oxyhemoglobin Carboxyhemoglobin Sodium Potassium Chloride Carbon Dioxide BUN Creatinine Glucose POC Glucose 130 H 195 H 141 H Lactic Acid Calcium Magnesium Ferritin Total Bilirubin Direct Bilirubin AST ALT Alkaline Phosphatase Lactate Dehydrogenase C-Reactive Protein Total Protein Albumin Triglycerides Lipase Arterial Blood Glucose Arterial Blood Ionized Calcium Urine WBC (Auto) Coronavirus (PCR) SARS-CoV-2 IgG Ab Crossmatch 07/20/20 07/21/20 07/21/20 23:26 05:03 17:03 WBC RBC Hgb Hct MCV MCH MCHC RDW Lymph % (Auto) [place] % (Auto) Lymph # (Auto) [place] # (Auto) Baso # (Auto) Seg Neutrophils % Seg Neuts % (Manual) Lymphocytes % (Manual) Nucleated RBC % Seg Neutrophils # Seg Neutrophils # Man Lymphocytes # (Manual) Monocytes # (Manual) Eosinophils # (Manual) PT INR APTT D-Dimer Heparin Anti-Xa Level ABG pH POC ABG pCO2 POC ABG pO2 ABG pO2 ABG HCO3 ABG O2 Saturation ABG Base Excess ABG Hemoglobin ABG Oxyhemoglobin ABG Sodium ABG Potassium ABG Chloride ABG Glucose Oxyhemoglobin Carboxyhemoglobin Sodium Potassium Chloride Carbon Dioxide BUN Creatinine Glucose POC Glucose 116 H 142 H 181 H Lactic Acid Calcium Magnesium Ferritin Total Bilirubin Direct Bilirubin AST ALT Alkaline Phosphatase Lactate Dehydrogenase C-Reactive Protein Total Protein Albumin Triglycerides Lipase Arterial Blood Glucose Arterial Blood Ionized Calcium Urine WBC (Auto) Coronavirus (PCR) SARS-CoV-2 IgG Ab Crossmatch 07/21/20 07/22/20 07/22/20 23:51 06:09 11:40 WBC RBC Hgb Hct MCV MCH MCHC RDW Lymph % (Auto) [place] % (Auto) Lymph # (Auto) [place] # (Auto) Baso # (Auto) Seg Neutrophils % Seg Neuts % (Manual) Lymphocytes % (Manual) Nucleated RBC % Seg Neutrophils # Seg Neutrophils # Man Lymphocytes # (Manual) Monocytes # (Manual) Eosinophils # (Manual) PT INR APTT D-Dimer Heparin Anti-Xa Level ABG pH POC ABG pCO2 POC ABG pO2 ABG pO2 ABG HCO3 ABG O2 Saturation ABG Base Excess ABG Hemoglobin ABG Oxyhemoglobin ABG Sodium ABG Potassium ABG Chloride ABG Glucose Oxyhemoglobin Carboxyhemoglobin Sodium Potassium Chloride Carbon Dioxide BUN Creatinine Glucose POC Glucose 127 H 136 H 160 H Lactic Acid Calcium Magnesium Ferritin Total Bilirubin Direct Bilirubin AST ALT Alkaline Phosphatase Lactate Dehydrogenase C-Reactive Protein Total Protein Albumin Triglycerides Lipase Arterial Blood Glucose Arterial Blood Ionized Calcium Urine WBC (Auto) Coronavirus (PCR) SARS-CoV-2 IgG Ab Crossmatch 07/22/20 07/22/20 07/23/20 18:14 23:25 05:58 WBC 12.2 H RBC 3.44 L Hgb 10.9 L Hct 33.9 L MCV 99 H MCH MCHC RDW 16.9 H Lymph % (Auto) [place] % (Auto) 10.0 H Lymph # (Auto) [place] # (Auto) 1.2 H Baso # (Auto) Seg Neutrophils % Seg Neuts % (Manual) Lymphocytes % (Manual) Nucleated RBC % Seg Neutrophils # 8.3 H Seg Neutrophils # Man Lymphocytes # (Manual) Monocytes # (Manual) Eosinophils # (Manual) PT INR APTT D-Dimer Heparin Anti-Xa Level ABG pH POC ABG pCO2 POC ABG pO2 ABG pO2 ABG HCO3 ABG O2 Saturation ABG Base Excess ABG Hemoglobin ABG Oxyhemoglobin ABG Sodium ABG Potassium ABG Chloride ABG Glucose Oxyhemoglobin Carboxyhemoglobin Sodium Potassium Chloride Carbon Dioxide BUN Creatinine Glucose POC Glucose 189 H 164 H Lactic Acid Calcium Magnesium Ferritin Total Bilirubin Direct Bilirubin AST ALT Alkaline Phosphatase Lactate Dehydrogenase C-Reactive Protein Total Protein Albumin Triglycerides Lipase Arterial Blood Glucose Arterial Blood Ionized Calcium Urine WBC (Auto) Coronavirus (PCR) SARS-CoV-2 IgG Ab Crossmatch 07/23/20 07/23/20 07/23/20 05:58 06:02 12:14 WBC RBC Hgb Hct MCV MCH MCHC RDW Lymph % (Auto) [place] % (Auto) Lymph # (Auto) [place] # (Auto) Baso # (Auto) Seg Neutrophils % Seg Neuts % (Manual) Lymphocytes % (Manual) Nucleated RBC % Seg Neutrophils # Seg Neutrophils # Man Lymphocytes # (Manual) Monocytes # (Manual) Eosinophils # (Manual) PT INR APTT D-Dimer Heparin Anti-Xa Level ABG pH POC ABG pCO2 POC ABG pO2 ABG pO2 ABG HCO3 ABG O2 Saturation ABG Base Excess ABG Hemoglobin ABG Oxyhemoglobin ABG Sodium ABG Potassium ABG Chloride ABG Glucose Oxyhemoglobin Carboxyhemoglobin Sodium Potassium 2.9 L* Chloride 94.9 L Carbon Dioxide 33 H D BUN Creatinine 0.4 L Glucose 129 H POC Glucose 111 H 142 H Lactic Acid Calcium Magnesium Ferritin Total Bilirubin Direct Bilirubin AST ALT Alkaline Phosphatase Lactate Dehydrogenase C-Reactive Protein Total Protein Albumin 3.5 L Triglycerides Lipase Arterial Blood Glucose Arterial Blood Ionized Calcium Urine WBC (Auto) Coronavirus (PCR) SARS-CoV-2 IgG Ab Crossmatch Chest x-ray: image reviewed (No PTX) Allied health notes reviewed: nursing
--- NOTE | 2020-07-23 15:33 | Progress Note ---
Assessment and Plan Assessment and plan: --Severe hypokalemia; potassium 2.9 Replenished with KCl 40 mEq, 2 doses Check magnesium, closely monitor electrolytes --Acute hypoxemic respiratory failure;on high flow nasal cannula oxygen Status post extubation, high flow oxygen and BiPAP ,wean as tolerated, supportive care Pulmonary critical l care following --Pneumothorax status post right chest tube Chest x-ray no pneumothorax chest tube in place --Sinus tachycardia: --Severe COVID-19 bilateral pneumonia Coronavirus protocol: IV steroid therapy, completed remdesivir, isolation precautions, contact precautions, prone positioning while in bed, pulmonary toilet. ID following SARS CoV-2 IgG positive patient is NOT a candidate for convalescent plasma --Elevated D-dimers/hyper coag state; Empiric anticoagulation with full dose Lovenox Closely monitor --Pseudomonas bacteremia; ID following, Continue cefepime --Severe sepsis/septic shock, due to COVID 19 PNA cont pressors as needed -- Acute kidney injury (SEN) , likely vasomotor nephropathy Resolved, IV fluids, avoid nephrotoxins --Acute on chronic anemia Guaiac test positive, GI evaluation PPIs, Continue to monitor -- Elevated liver function tests Suspected secondary to alcoholic liver disease. Supportive care, alcohol cessation, patient counseled. --Colonic distention GI evaluated colonic distention resolved recommend stool softeners Serial abdominal x-rays Monitor electrolytes and replete -- DVT prophylaxis On therapeutic Lovenox Closely monitor the patient and adjust management as needed Patient is critically ill with poor prognosis Plan of care reviewed with the patient's nurse We will try to contact family and update patient's condition Brief history and hospital course; 50 YO Male with Obesity, ETOH Dependence presents to ED for evaluation. Patient states that he has experienced shortness of breath, generalized weakness, fatigue, malaise, body aches, decreased exercise tolerance over the past 5 days with persistently worsening symptoms over the same timeframe. EMS was notified and upon arrival the patient was found to be in distress with a pulse oximetry of 76% on room air as well as fever to 103 F. Patient was placed on supplemental oxygen and subsequently transported to [facility] for further care and evaluation. Patient seen and evaluated in the emergency department. All lab and imaging studies reviewed. Patient underwent chest x-ray and was found to have bilateral pneumonia. Patient also found to have a pulse oximetry of 86% on 4 L nasal cannula. Patient initiated on a high flow submental oxygen with improvement of pulse oximetry. Patient admitted to medical floor and initiated on pneumonia protocol as well as COVID-19 protocol. Patient also found to have acute kidney injury as well as elevated liver function test suspected secondary to alcohol dependence. Patient reports being diagnosed with coronavirus 2 days ago. No prior admission for review. 06/16/2020. Patient currently on mechanical ventilation with AC mode rate 30, tidal volume 500, FiO2 70% and PEEP of 16. Continue anticoagulation with Lovenox 110 milligrams subcu every 12 hours. Wean sedation of fentanyl/Versed as needed. Currently with IV steroids of Solu-Medrol 40 mg IV every 12 hours. Patient will likely need tracheostomy per pulmonary recommendations. Continue pressors to maintain MAP > 65. 06/17/2020. Patient currently on mechanical ventilation with AC mode rate 30, tidal volume 500, FiO2 65% and PEEP of 16. Continue anticoagulation with Lovenox 110 milligrams subcu every 12 hours. Wean sedation of fentanyl/Versed as needed. Currently with IV steroids of Solu-Medrol 40 mg IV every 12 hours. Patient will likely need tracheostomy per pulmonary recommendations. 06/18/2020. Patient currently on mechanical ventilation with AC mode rate 30, tidal volume 500, FiO2 70% and PEEP of 16. Continue Lovenox for anticoagulation and fentanyl/Versed for sedation. Wean steroids per pulmonary. CIWA protocol initiated for history of EtOH dependence 06/19/2020. Patient currently on mechanical ventilation with AC mode rate 30, tidal volume 500, FiO2 60% and PEEP of 16. Wean FiO2 as tolerated per protocol. Continue Lovenox for anticoagulation and fentanyl/Versed for sedation. Wean steroids per pulmonary. CIWA protocol initiated for history of EtOH dependence 06/20/2020. Patient currently on mechanical ventilation with AC mode rate 30, tidal volume 500, FiO2 60% and PEEP of 16. Wean FiO2 as tolerated, SBT per protocol. Continue Lovenox for anticoagulation and fentanyl/Versed for sedation. Wean steroids per pulmonary. Continue pressors to maintain MAP > 65 mmHg. Patient remains on ETT. Consider tracheostomy placement once oxygenation is better per pulmonary. CIWA protocol initiated for history of EtOH dependence. 06/21/2020. Patient with a small apical pneumothorax discovered yesterday. General surgery consulted and consider placing chest tube. Follow-up serial chest x-ray patient currently on mechanical ventilation with AC mode rate 30, tidal volume 500, FiO2 60% and PEEP of 16. Wean FiO2 as tolerated, SBT per protocol. Continue Lovenox for anticoagulation and fentanyl/Versed for sedation. Wean steroids per pulmonary. Continue pressors to maintain MAP > 65 mmHg. Patient remains on ETT. Consider tracheostomy placement once oxygenation is better per pulmonary. CIWA protocol initiated for history of EtOH de pendence. 06/22. Status post right chest tube placement yesterday. Remains mechanically ventilated on pressors. Examination today shows slightly distended abdomen. KUB ordered. Awaiting stool guaiac. Plan to get a GI evaluation. 06/23. Has colonic distention on the x-ray. Discussed with GI-advised stool softeners for now and close monitoring. No indication for colonic decompression at this time. Guaiac test is positive. No emergent indication for endoscopy at this point as per GI. Continue to monitor hemoglobin. 06/24. Remains intubated. On pressors. GI following for positive guaiac stool and anemia, and colonic distention. 06/25. Repeat abdominal xray ordered. Remains on mechanical ventilation. 06/26. Abdominal xray - resolved colonic distension. Mechanically ventilated. 06/27. Plan for trach and PEG. 06/28: Awaiting trach and Peg. S\ome Bm REPORTED, will continue to monitor 06/29: Resume care, patient remains on ventilator support, waiting on trach and PEG placement. BM reported by the RN, continue to monitor. 06/30: Unable to wean off from vent, patient will need trach and PEG. Continue supportive care, tolerating tube feed. Monitor CBC and BMP 07/01: Continue mechanical ventilation, tube feeding as tolerated. Sedation as needed per mechanical ventilation protocol. Waiting on trach and PEG placement. 07/02: Continue current management, tube feeding, monitor CBC and BMP. Need trach and PEG-waiting on scheduling. Pulmonary critical care following. 07/03: wean off vent as tolerated. follow clinically. need trach and PEG 07/04: unable to wean. CT head ordered to assess for any changes but too unstable to do the test. need trach and PEG. 07/05: plan for trach/peg - GS following. off pressor - on midodrine. renal func tion stable. intubated, but alert and can follow minor commend. discussed with daughter by phone. 07/06/2020; Dr. Márquez discussed with patient's daughter about trach but the daughter needs time to think about it. Patient was intubated and alert, FiO2 40%. 07/07/2020; patient was intubated and alert, FiO2 40%. Patient was diaphoretic, tachycardic, and EKG was done which was abnormal for me. I called chairman emeritus Dr Louis saw the EKG and said it is normal EKG, and the findings are abnormal. 07/08/2020; no significant change, patient is intubated and alert. 12: Patient continues on current management. Pulmonary recommending trach and PEG awaiting patient's decision on this. Will check intermittent labs 07/11: Ordered CT still pending. Patient was agitated at night. Appears to have calmed down. Will repeat labs today. 07/12: Continue supportive care, awaiting CPAP trial. discussed with pulmonary. Obtain labs today. Trach and Peg planned 07/13: Continues to current management, PLAN FOR Trach and PEG on Sunday if patient is not able to liberated from the ventilator, Continue to monitor Fever curve and repeat Sepsis work up if persistent fever 07/14: Now extubated, continue to work up. 07/15: Clinical stable for transfer to [facility], still with fever and now showing bactermia. Continue Abx per ID. monitor fever 07/16: Continue supportive care. MONITOR FEVER CURVE, Adjust antibiotics as tolerated 07/17: Chest tube remains in place. More lethargic, Requested BIPAP to bedside, Chest tube to be discontinued, Awaiting Pysch input. 07/18: Chest tube remains in place repeat chest x-ray shows persistent bilateral opacity with mild improvement. Continue nebulizer treatments. Hypokalemia also noted will replace. Pulmonary and surgical input noted 07/19: Patient is a 50-year-old male admitted with shortness of breath ended up on mechanical ventilation noted to have pneumothorax has a chest tube in place. Has been successfully extubated but remains with delirium secondary to medical condition and also mild to moderate respiratory distress on Venturi mask. Continue weaning attempts. Patient still with chest tube. Continue serial x- rays. Will discuss with case management about possible LTAC placement. Blood cultures are currently returning Pseudomonas species. ID is following. 07/20/2020; patient continues to feel better, high flow oxygen and BiPAP Chest tube in place, continue current management, pulmonary surgery following 07/21/2020:Patient remains on High flow o2 07/22/2020; patient remains on high flow oxygen 8 L 100% O2 sat 93% Case management checking for LTAC placement 07/23/2020; patient remains on high flow oxygen, wean oxygen as tolerated, severe hypokalemia Replenish per protocol monitor levels The high probability of a clinically significant, sudden or life threatening deterioration of the [respiratory] system(s) required my full and direct a ttention, intervention and personal management. The aggregate critical care time was [33] minutes. This time is in addition to time spent performing reported procedures but includes the following: [x] Data Review and interpretation [x] Patient assessment and monitoring of vital signs [x] Documentation [x] Medication orders and management History Interval history: I have seen and examined the patient at the bedside in IMCU this morning Patient is alert and awake responding appropriately In mild distress on very high flow oxygen Chest tube in place on the right side No new complaints Vital signs noted Hospitalist Physical - Constitutional Vitals: Temp Pulse Resp BP Pulse Ox 97.7 F 99 H 28 H 107/64 99 07/23/20 12:00 07/23/20 14:00 07/23/20 14:00 07/23/20 14:00 07/23/20 15:08 General appearance: Present: mild distress, well-nourished, other (On nasal cannula high flow oxygen 25 to 30 L) - EENT Eyes: Present: PERRL, EOM intact - Neck Neck: Present: supple, normal ROM - Respiratory Respiratory: bilateral: diminished, rhonchi, negative: rales, wheezing - Cardiovascular Rhythm: regular Heart Sounds: Present: S1 & S2 - Extremities Extremities: no ischemia, No edema - Abdominal General gastrointestinal: soft, non-tender, non-distended, normal bowel sounds - Integumentary Integumentary: Present: clear, warm - Psychiatric Psychiatric: appropriate mood/affect, cooperative - Neurologic Neurologic: moves all extremities HEART Score - HEART Score Troponin: Troponin T 0.015 ng/mL (0.00-0.029) 07/07/20 10:00 Results - Labs CBC & Chem 7: 07/23/20 05:58 07/23/20 05:58 Labs: Laboratory Last Values WBC 12.2 K/mm3 (4.5-11.0) H 07/23/20 05:58 RBC 3.44 M/mm3 (3.65-5.03) L 07/23/20 05:58 Hgb 10.9 gm/dl (11.8-15.2) L 07/23/20 05:58 Hct 33.9 % (35.5-45.6) L 07/23/20 05:58 MCV 99 fl (84-94) H 07/23/20 05:58 MCH 32 pg (28-32) 07/23/20 05:58 MCHC 32 % (32-34) 07/23/20 05:58 RDW 16.9 % (13.2-15.2) H 07/23/20 05:58 Plt Count 386 K/mm3 (140-440) 07/23/20 05:58 Lymph % (Auto) 19.5 % (13.4-35.0) 07/23/20 05:58 [place]oard % (Auto) 10.0 % (0.0-7.3) H 07/23/20 05:58 Eos % (Auto) 2.2 % (0.0-4.3) 07/23/20 05:58 Baso % (Auto) 0.2 % (0.0-1.8) 07/23/20 05:58 Lymph # (Auto) 2.4 K/mm3 (1.2-5.4) 07/23/20 05:58 Foard # (Auto) 1.2 K/mm3 (0.0-0.8) H 07/23/20 05:58 Eos # (Auto) 0.3 K/mm3 (0.0-0.4) 07/23/20 05:58 Baso # (Auto) 0.0 K/mm3 (0.0-0.1) 07/23/20 05:58 Add Manual Diff Complete 07/13/20 08:31 Total Counted 100 07/13/20 08:31 Seg Neutrophils % 68.1 % (40.0-70.0) 07/23/20 05:58 Seg Neuts % (Manual) 96.0 % (40.0-70.0) H 07/13/20 08:31 Band Neutrophils % 0 % 07/13/20 08:31 Lymphocytes % (Manual) 2.0 % (13.4-35.0) L 07/13/20 08:31 Reactive Lymphs % (Man) 0 % 07/13/20 08:31 Monocytes % (Manual) 2.0 % (0.0-7.3) 07/13/20 08:31 Eosinophils % (Manual) 0 % (0.0-4.3) 07/13/20 08:31 Basophils % (Manual) 0 % (0.0-1.8) 07/13/20 08:31 Metamyelocytes % 0 % 07/13/20 08:31 Myelocytes % 0 % 07/13/20 08:31 Promyelocytes % 0 % 07/13/20 08:31 Blast Cells % 0 % 07/13/20 08:31 Nucleated RBC % Not Reportable 07/13/20 08:31 Seg Neutrophils # 8.3 K/mm3 (1.8-7.7) H 07/23/20 05:58 Seg Neutrophils # Man 20.4 K/mm3 (1.8-7.7) H 07/13/20 08:31 Band Neutrophils # 0.0 K/mm3 07/13/20 08:31 Lymphocytes # (Manual) 0.4 K/mm3 (1.2-5.4) L 07/13/20 08:31 Abs React Lymphs (Man) 0.0 K/mm3 07/13/20 08:31 Monocytes # (Manual) 0.4 K/mm3 (0.0-0.8) 07/13/20 08:31 Eosinophils # (Manual) 0.0 K/mm3 (0.0-0.4) 07/13/20 08:31 Basophils # (Manual) 0.0 K/mm3 (0.0-0.1) 07/13/20 08:31 Metamyelocytes # 0.0 K/mm3 07/13/20 08:31 Myelocytes # 0.0 K/mm3 07/13/20 08:31 Promyelocytes # 0.0 K/mm3 07/13/20 08:31 Blast Cells # 0.0 K/mm3 07/13/20 08:31 WBC Morphology Not Reportable 07/13/20 08:31 Hypersegmented Neuts Not Reportable 07/13/20 08:31 Hyposegmented Neuts Not Reportable 07/13/20 08:31 Hypogranular Neuts Not Reportable 07/13/20 08:31 Smudge Cells Not Reportable 07/13/20 08:31 Toxic Granulation Not Reportable 07/13/20 08:31 Toxic Vacuolation Not Reportable 07/13/20 08:31 Dohle Bodies Not Reportable 07/13/20 08:31 Pelger-Huet Anomaly Not Reportable 07/13/20 08:31 Jason Rods Not Reportable 07/13/20 08:31 Platelet Estimate Consistent w auto 07/13/20 08:31 Clumped Platelets Not Reportable 07/13/20 08:31 Plt Clumps, EDTA Not Reportable 07/13/20 08:31 Large Platelets Not Reportable 07/13/20 08:31 Giant Platelets Not Reportable 07/13/20 08:31 Platelet Satelliting Not Reportable 07/13/20 08:31 Plt Morphology Comment Not Reportable 07/13/20 08:31 RBC Morphology Not Reportable 07/13/20 08:31 Dimorphic RBCs Not Reportable 07/13/20 08:31 Polychromasia Not Reportable 07/13/20 08:31 Hypochromasia Not Reportable 07/13/20 08:31 Poikilocytosis Not Reportable 07/13/20 08:31 Anisocytosis Not Reportable 07/13/20 08:31 Microcytosis Not Reportable 07/13/20 08:31 Macrocytosis Not Reportable 07/13/20 08:31 Spherocytes Not Reportable 07/13/20 08:31 Pappenheimer Bodies Not Reportable 07/13/20 08:31 Sickle Cells Not Reportable 07/13/20 08:31 Target Cells Not Reportable 07/13/20 08:31 Tear Drop Cells Not Reportable 07/13/20 08:31 Ovalocytes Not Reportable 07/13/20 08:31 Stomatocytes Few 07/13/20 08:31 Helmet Cells Not Reportable 07/13/20 08:31 [place] Bodies Not Reportable 07/13/20 08:31 [place] Rings Not Reportable 07/13/20 08:31 [place] Cells Not Reportable 07/13/20 08:31 Bite Cells Not Reportable 07/13/20 08:31 Crenated Cell Not Reportable 07/13/20 08:31 Elliptocytes Not Reportable 07/13/20 08:31 Acanthocytes (Spur) Not Reportable 07/13/20 08:31 Rouleaux Not Reportable 07/13/20 08:31 Hemoglobin C Crystals Not Reportable 07/13/20 08:31 Schistocytes Not Reportable 07/13/20 08:31 Malaria parasites Not Reportable 07/13/20 08:31 Josue Bodies Not Reportable 07/13/20 08:31 Hem Pathologist Commnt No 07/13/20 08:31 PT 11.8 Sec. (12.2-14.9) L 06/22/20 14:29 INR 0.88 (0.87-1.13) 06/22/20 14:29 APTT 23.5 Sec. (24.2-36.6) L 06/22/20 14:29 D-Dimer 1887.82 ng/mlDDU (0-234) H 05/20/20 08:16 Heparin Anti-Xa Level 0.37 U.I./ml (0.3-0.7) 07/02/20 16:08 ABG pH 7.477 (7.320-7.450) H 07/13/20 13:52 POC ABG pCO2 54.4 mmHg (32.0-48.0) H 07/13/20 13:52 ABG pCO2 53.1 mm Hg 07/08/20 Unknown POC ABG pO2 126.8 mmHg (83-108) H 07/13/20 13:52 ABG pO2 75.3 mm Hg (80.0-90.0) L 07/08/20 Unknown POC ABG HCO3 39.3 07/13/20 13:52 ABG HCO3 34.3 mmol/L (20.0-26.0) H 07/08/20 Unknown ABG O2 Saturation 96.5 % (95.0-99.0) 07/08/20 Unknown ABG O2 Content 13.5 (0.0-44) 07/08/20 Unknown POC ABG Base Excess 13.8 07/13/20 13:52 ABG Base Excess 8.7 mmol/L (-2.0-3.0) H 07/08/20 Unknown ABG Hemoglobin 11.5 (12.0-17.5) L 07/13/20 13:52 ABG Oxyhemoglobin 97.7 (94-98) 07/13/20 13:52 ABG Carboxyhemoglobin 2.4 % (0.0-5.0) 07/08/20 Unknown ABG Methemoglobin 0 (0.0-1.5) 07/13/20 13:52 ABG Sodium 136.2 mmol/L (136.0-145.0) 07/13/20 13:52 ABG Potassium 3.2 mmol/L (3.40-4.50) L 07/13/20 13:52 ABG Chloride 92.0 mmol/L (98-107) L 07/13/20 13:52 ABG Glucose 169 mg/dL (65-95) H 07/13/20 13:52 Oxyhemoglobin 93.7 % (95.0-99.0) L 07/08/20 Unknown Carboxyhemoglobin 1.2 (0.5-1.5) 07/13/20 13:52 FiO2 45 07/13/20 13:52 Sodium 141 mmol/L (137-145) 07/23/20 05:58 Potassium 2.9 mmol/L (3.6-5.0) L* 07/23/20 05:58 Chloride 94.9 mmol/L (98-107) L 07/23/20 05:58 Carbon Dioxide 33 mmol/L (22-30) H D 07/23/20 05:58 Anion Gap 16 mmol/L 07/23/20 05:58 BUN 11 mg/dL (9-20) 07/23/20 05:58 Creatinine 0.4 mg/dL (0.8-1.3) L 07/23/20 05:58 Estimated GFR > 60 ml/min 07/23/20 05:58 BUN/Creatinine Ratio 28 % 07/23/20 05:58 Glucose 129 mg/dL (75-100) H 07/23/20 05:58 POC Glucose 142 mg/dL (70-105) H 07/23/20 12:14 Lactic Acid 0.80 mmol/L (0.7-2.0) 07/13/20 15:45 Calcium 9.2 mg/dL (8.4-10.2) 07/23/20 05:58 Phosphorus 3.10 mg/dL (2.5-4.5) 06/15/20 04:00 Magnesium 1.80 mg/dL (1.7-2.3) 07/23/20 10:21 Ferritin 1496.0 ng/mL (30.0-300.0) H 06/14/20 11:50 Total Bilirubin 0.20 mg/dL (0.1-1.2) 07/23/20 05:58 Direct Bilirubin 0.6 mg/dL (0-0.2) H 05/11/20 07:30 Indirect Bilirubin 0.9 mg/dL 05/11/20 07:30 AST 18 units/L (5-40) 07/23/20 05:58 ALT 55 units/L (7-56) 07/23/20 05:58 Alkaline Phosphatase 67 units/L (35-129) 07/23/20 05:58 Lactate Dehydrogenase 705 units/L (91-180) H 05/20/20 08:16 Troponin T 0.015 ng/mL (0.00-0.029) 07/07/20 10:00 C-Reactive Protein 3.10 mg/dL (0.00-1.30) H 05/20/20 08:16 Total Protein 6.4 g/dL (6.3-8.2) 07/23/20 05:58 Albumin 3.5 g/dL (3.9-5) L 07/23/20 05:58 Albumin/Globulin Ratio 1.2 % 07/23/20 05:58 Triglycerides 452 mg/dL (2-149) H 06/30/20 07:00 Lipase 86 units/L (13-60) H 06/29/20 09:36 Procalcitonin 2.15 ng/mL (<0.15) 07/15/20 05:31 Arterial Blood Glucose 169 mg/dL (65-95) H 07/13/20 13:52 Arterial Blood Ionized Calcium 4.8 mg/dL (4.6-5.3) 07/13/20 13:52 Urine Color Fauzia (Yellow) 05/10/20 Unknown Urine Turbidity Clear (Clear) 05/10/20 Unknown Urine pH 5.0 (5.0-7.0) 05/10/20 Unknown Ur Specific [place] 1.019 (1.003-1.030) 05/10/20 Unknown Urine Protein 100 mg/dl mg/dL (Negative) 05/10/20 Unknown Urine Glucose (UA) Neg mg/dL (Negative) 05/10/20 Unknown Urine Ketones Neg mg/dL (Negative) 05/10/20 Unknown Urine Blood Lg (Negative) 05/10/20 Unknown Urine Nitrite Neg (Negative) 05/10/20 Unknown Urine Bilirubin Neg (Negative) 05/10/20 Unknown Urine Urobilinogen 2.0 mg/dL (<2.0) 05/10/20 Unknown Ur Leukocyte Esterase Neg (Negative) 05/10/20 Unknown Urine WBC (Auto) 11.0 /HPF (0.0-6.0) H 05/10/20 Unknown Urine RBC (Auto) 2.0 /HPF (0.0-6.0) 05/10/20 Unknown U Epithel Cells (Auto) 1.0 /HPF (0-13.0) 05/10/20 Unknown Urine Bacteria (Auto) 1+ /HPF (Negative) 05/10/20 Unknown Urine Mucus Few /HPF 05/10/20 Unknown Plasma/Serum Alcohol < 0.01 % (0-0.07) 05/09/20 14:20 Coronavirus (PCR) Negative (Negative) 06/30/20 10:28 Hepatitis A Ab Total Nonreactive (Nonreactive) 07/09/20 Unknown Hep B Core Total Ab Nonreactive (Nonreactive) 07/09/20 Unknown Hepatitis C RNA Quant See scanned result 07/09/20 Unknown SARS-CoV-2 IgG Ab Reactive (NonReactive) A 05/11/20 07:30 Blood Type B POSITIVE 06/21/20 14:18 Antibody Screen Negative 06/21/20 14:18 Crossmatch See Detail 06/21/20 14:18 - Diagnostic Impressions Diagnostic Impressions: Echocardiogram 05/20/20 13:02 Transthoracic Echocardiogram Indication: CHF BP: 97/73 Conclusions *The study quality is technically very difficult and limited. *The left ventricular chamber size, wall thickness and systolic function are within normal limits. There are no wall motion abnormalities observed. Ejection fraction is normal. *The estimated ejection fraction is 60-65%. *The pericardium appears normal. Findings Procedure Info: The study quality is technically difficult. Left Ventricle: The left ventricular chamber size, wall thickness and systolic function are within normal limits. There are no wall motion abnormalities observed. Ejection fraction is normal. The estimated ejection fraction is 60-65%. Abnormal left ventricular diastolic filling is observed, consistent with impaired relaxation. Left Atrium: The left atrium is normal in size with no visual thrombus identified. Right Ventricle: The right ventricle is not well visualized. Right Atrium: The right atrium is not well visualized. Aortic Valve: The aortic valve is trileaflet. The leaflets are thin with normal excursion. There is no aortic stenosis or regurgitation present. Mitral Valve: The mitral valve appears normal in structure and function. Tricuspid Valve: The tricuspid valve appears normal in structure and function. Unable to estimate the right ventricular systolic pressure. Pulmonic Valve: The pulmonic valve is not well visualized. There is no evidence of pulmonic regurgitation. There is no pulmonic stenosis. Pericardium: The pericardium appears normal. Pulmonary Artery: The main pulmonary artery is not well visualized. Venous: The inferior vena cava appears normal in size. Measurements Chambers 2D Name Value Normal Range IVSd (2D) 0.83 cm (0.6 - 1.1) LVPWd (2D) 0.83 cm (0.6 - 1.1) LVIDd (2D) 3.88 cm (3.7 - 5.6) LVIDs (2D) 2.46 cm (2 - 3.8) LV FS (2D) 36.52 % - EF Teichholz (2D) 66.97 % - Ao root diameter (2D) 3.47 cm (2 - 3.7) Volumes/Mass Name Value Normal Range LA ESV SP 4CH (A/L) 22.4 ml - LA ESV SP 2CH (A/L) 22.89 ml - LA ESV BP (A/L) 23.06 ml - LA ESV SP 4CH (MOD) 21.09 ml - LA ESV SP 2CH (MOD) 22.44 ml - Diastolic/Systolic Function Name Value Normal Range MV E-wave Vmax 0.48 m/sec - MV deceleration time 156.3 msec - MV A-wave Vmax 0.59 m/sec - MV E:A ratio 0.81 ratio - Aortic Valve Name Value Normal Range AV Vmax 0.97 m/sec - AV VTI 14.49 cm - AV peak gradient 3.73 mmHg - AV mean gradient 1.89 mmHg - LVOT diameter 2.09 cm - LVOT Vmax 0.72 m/sec - LVOT VTI 10.21 cm - LVOT peak gradient 2.05 mmHg - LVOT mean gradient 1.03 mmHg - SV LVOT 35.17 ml - INNA (continuity Vmax) 2.55 cm2 - INNA (continuity VTI) 2.43 cm2 - Tricuspid Valve Name Value Normal Range TV E-wave Vmax 0.37 m/sec - Pulmonic Valve/Qp:Qs Name Value Normal Range PV Vmax 0.72 m/sec - PV peak gradient 2.06 mmHg - RVOT Vmax 0.85 m/sec - RVOT VTI 9.89 cm - RVOT peak gradient 2.9 mmHg - PV acceleration time 72.31 msec - Cantor/IV: Voiding Method Condom Catheter IV Catheter Type [Right Wrist] INT / Saline Lock IV Catheter Type [Right Upper Peripheral IV arm] IV Catheter Type [Right CVL Internal Jugular] IV Catheter Type [Right Peripheral IV Forearm] IV Catheter Type [Left Forearm INT / Saline Lock ] IV Catheter Type [Left Wrist] INT / Saline Lock IV Catheter Type [Right Hand] INT / Saline Lock IV Catheter Type [Left Hand] INT / Saline Lock IV Catheter Type [Left Peripheral IV Antecubital] Active Medications - Current Medications Current Medications: Generic Name Dose Route Start Last Admin Trade Name Freq PRN Reason Stop Dose Admin Alprazolam 0.25 mg 05/20/20 17:53 07/17/20 12:00 Alprazolam 0.25 Mg Tab PO 0.25 mg Q8H PRN Administration Anxiety Lipase/Protease/Amylase 1 each 05/22/20 13:01 Lipase 10,500/Protease 25,000/Amylase 43,750 (Units) Dr Newell FEEDTUBE PRN PRN For Clogged Feeding Tube Bisacodyl 10 mg 07/14/20 11:00 Bisacodyl 10 Mg Rect Supp NH BID PRN Laxative Effect Docusate Sodium 100 mg 05/28/20 14:00 07/23/20 10:05 Docusate Sodium 100 Mg/10 Ml Oral Liqd PO 100 mg BID DESIRE Administration Enoxaparin Sodium 80 mg 07/07/20 23:00 07/23/20 10:06 Enoxaparin 80 Mg/0.8 Ml Inj SUB-Q 80 mg Q12HR DESIRE Administration Enoxaparin Sodium 30 mg 07/07/20 23:00 07/23/20 10:06 Enoxaparin 30 Mg/0.3 Ml Inj SUB-Q 30 mg Q12HR DESIRE Administration Folic Acid 1 mg 05/09/20 15:36 07/23/20 10:05 Folic Acid 1 Mg Tab PO 1 mg QDAY DESIRE Administration Guaifenesin 600 mg 07/19/20 23:00 07/23/20 10:08 Guaifenesin Er 600 Mg Tab PO 600 mg BID DESIRE Administration Hydrophilic Ointment 1 applic 05/21/20 20:33 Lip Therapy Vaseline TP Q2HR PRN Dry Lips Cefepime HCl 2 gm in 100 mls @ 200 mls/hr 07/14/20 21:00 07/23/20 12:34 Cefepime/Ns 2 Gm/100 Ml IV 07/28/20 13:29 100 mls/hr Q8H DESIRE Administration Protocol Magnesium Sulfate 2 gm in 50 mls @ 25 mls/hr 07/23/20 14:00 07/23/20 15:28 Magnesium Sulfate 2gm/50ml IV 07/23/20 15:59 25 mls/hr ONCE ONE Administration Insulin Human Lispro 0 unit 05/29/20 14:00 07/23/20 12:34 Insulin Lispro 100 Unit/Ml Vial 3 Ml SUB-Q Not Given Q6H [facility] Protocol Lansoprazole 30 mg 06/28/20 10:00 07/23/20 10:05 Lansoprazole 30 Mg Solutab FEEDTUBE 30 mg QDAY DESIRE Administration Lorazepam 1 mg 07/04/20 01:10 07/18/20 11:57 Lorazepam 2 Mg/Ml Vial IV 1 mg Q1HR PRN Administration agitation Methylprednisolone Sodium Succinate 20 mg 07/15/20 10:00 07/23/20 10:05 Methylprednisolone Sod Succinate 40 Mg/1 Ml Inj IV 20 mg Q24HR DESIRE Administration Metoprolol Tartrate 5 mg 07/02/20 17:17 07/08/20 14:38 Metoprolol Tartrate 5 Mg/5 Ml Inj IV 5 mg Q6HR PRN Administration Tachyarrhythmias Metoprolol Tartrate 12.5 mg 07/17/20 12:00 07/23/20 10:05 Metoprolol Tartrate 25 Mg Tab PO 12.5 mg BID DESIRE Administration Midodrine 10 mg 06/30/20 16:00 07/23/20 15:28 Midodrine 5 Mg Tab PO 10 mg TID@0800,1200,1600 DESIRE Administration Multi-Ingred Cream/Lotion/Oil/Oint 1 applic 05/21/20 20:33 Mineral Oil/Petrolatum, White Ophth Oint 3.5 Gm OU Q4HR PRN Dry Eye(s) Olanzapine 5 mg 07/17/20 22:00 07/22/20 22:07 Olanzapine 5 Mg Tab PO 5 mg QHS DESIRE Administration Phenobarbital 32.4 mg 07/04/20 22:00 07/23/20 10:05 Phenobarbital 32.4 Mg Tab PO 32.4 mg BID DESIRE Administration Potassium Chloride 40 meq 07/23/20 10:00 07/23/20 13:39 Potassium Chloride 20 Meq Packet FEEDTUBE 07/23/20 18:01 40 meq Q4H DESIRE Administration Quetiapine Fumarate 200 mg 07/16/20 10:00 07/23/20 10:05 Quetiapine 200 Mg Tab PO 200 mg QAM DESIRE Administration Senna 17.2 mg 07/14/20 11:00 Sennosides 8.6 Mg Tab PO BID PRN Laxative Effect Simple Syrup 15 ml 05/22/20 13:01 07/15/20 05:35 Simple Syrup 15 Ml FEEDTUBE 15 ml PRN PRN Administration Hypoglycemia Simple Syrup 30 ml 05/22/20 13:01 Simple Syrup 15 Ml FEEDTUBE PRN PRN Hypoglycemia Sodium Bicarbonate 325 mg 05/22/20 13:01 Sodium Bicarbonate 325 Mg Tab FEEDTUBE PRN PRN For Clogged Feeding Tube Sodium Chloride 10 ml 05/09/20 22:00 07/23/20 10:07 Sodium Chloride 0.9% 10 Ml Flush Syringe IV 10 ml BID DESIRE Administration Nutrition/Malnutrition Assess - Dietary Evaluation Nutrition/Malnutrition Findings: Nutrition Notes Start: 05/17/20 14:10 Freq: Status: Active Protocol: Document 07/23/20 14:39 CW (Rec: 07/23/20 14:49 CW [email or web address]) Co-Sign 07/23/20 14:39 LP Nutrition Notes Initial or Follow up Reassessment Current Diagnosis Acute Kidney Injury,Decubitus( Pressure Ulcer),Sepsis, Respiratory Failure Other Pertinent Diagnosis Bilat pneu, COVID-19 (+), EtOH dependence Current Diet Regular diet Labs/Tests K 2.9 BG 199 Pertinent Medications KCl 120 mEq Humalog solumedrol Height 6 ft Weight 107.5 kg Oral Body Weight (kg) 80.90 BMI 32.1 Weight Status Obese Subjective/Other Information FU for TF mauricio. Per chart, pt remains extubated with diet advancement. Per RN pt is consuming 100% PO without chewing or swallowing difficulties. Percent of energy/protein needs met: 100%/100% Burn Absent Trauma Absent GI Symptoms None Current % PO Good (75-100%) Minimum of two criteria No physical signs of malnutrition #2 Nutrition Diagnosis Increased nutrient needs ( specify in comment below) Diagnosis Progress(for reassessment Continues documentation) #1 Nutrition Diagnosis Inadequate oral intake As Evidenced by Signs and Symptoms Pt extubated and diet advanced Diagnosis Progress(for reassessment Improved documentation) Is patient on ventilator? No Is Patient Ambulatory and/or Out of Bed No REE-([place]-confined to bed) 2365.212 Kcal/Kg value to use for calculation 16 Approximate Energy Requirements Using 1720 kcal/Kg Calculation Used for Recommendations Kcal/kg Additional Notes Protein: 134-161 g (1.25-1.5 g /kg) Fluid: 1 ml/kcal Nutrition Intervention Change Diet Order: Continue diet Nutrition Support: DC Goal #1 Meet at least 75% protein and energy needs via PO Anticipated Discharge Needs: Regular diet Follow-Up By: 07/30/20 Additional Comments FU for intakes
--- NOTE | 2020-07-23 15:47 | Event Note ---
Date: 07/23/20 Chest tube was removed without incident. Pt tolerated removal well. ordered cxr for am.
--- NOTE | 2020-07-23 18:23 | Consultation ---
History of Present Illness - Reason for Consult Consult date: 07/23/20 - History of Present Illness Afebrile now, white count 12.2. Currently on high flow nasal cannula. Chest tubes removed today. Imaging personally reviewed: Chest x-ray: Stable scattered bilateral pulmonary opacities. Past History Past Medical History: other (See HPI) Past Surgical History: No surgical history, Other (Reviewed) Social history: single, alcohol abuse Family history: diabetes, hypertension Medications and Allergies Allergies Allergy/AdvReac Type Severity Reaction Status Date / Time No Known Allergies Allergy Unverified 05/09/20 14:23 Home Medications Medication Instructions Recorded Confirmed Last Taken Type No Known Home Medications [No 05/09/20 05/09/20 Unknown History Reported Home Medications] Active Meds: Active Medications Alprazolam (Alprazolam 0.25 Mg Tab) 0.25 mg PO Q8H PRN PRN Reason: Anxiety Last Admin: 07/17/20 12:00 Dose: 0.25 mg Documented by: Lipase/Protease/Amylase (Lipase 10,500/Protease 25,000/Amylase 43,750 (Units) Dr Newell) 1 each FEEDTUBE PRN PRN PRN Reason: For Clogged Feeding Tube Bisacodyl (Bisacodyl 10 Mg Rect Supp) 10 mg [place] BID PRN PRN Reason: Laxative Effect Docusate Sodium (Docusate Sodium 100 Mg/10 Ml Oral Liqd) 100 mg PO BID [facility] Last Admin: 07/23/20 10:05 Dose: 100 mg Documented by: Enoxaparin Sodium (Enoxaparin 80 Mg/0.8 Ml Inj) 80 mg SUB-Q Q12HR [facility] Last Admin: 07/23/20 10:06 Dose: 80 mg Documented by: Enoxaparin Sodium (Enoxaparin 30 Mg/0.3 Ml Inj) 30 mg SUB-Q Q12HR [facility] Last Admin: 07/23/20 10:06 Dose: 30 mg Documented by: Folic Acid (Folic Acid 1 Mg Tab) 1 mg PO QDAY [facility] Last Admin: 07/23/20 10:05 Dose: 1 mg Documented by: Guaifenesin (Guaifenesin Er 600 Mg Tab) 600 mg PO BID [facility] Last Admin: 07/23/20 10:08 Dose: 600 mg Documented by: Hydrophilic Ointment (Lip Therapy Vaseline) 1 applic TP Q2HR PRN PRN Reason: Dry Lips Cefepime HCl (Cefepime/Ns 2 Gm/100 Ml) 2 gm in 100 mls @ 200 mls/hr IV Q8H [facility]; Protocol Stop: 07/28/20 13:29 Last Admin: 07/23/20 12:34 Dose: 100 mls/hr Documented by: Insulin Human Lispro (Insulin Lispro 100 Unit/Ml Vial 3 Ml) 0 unit SUB-Q Q6H [facility]; Protocol Last Admin: 07/23/20 17:44 Dose: 3 unit Documented by: Lansoprazole (Lansoprazole 30 Mg Solutab) 30 mg FEEDTUBE QDAY [facility] Last Admin: 07/23/20 10:05 Dose: 30 mg Documented by: Lorazepam (Lorazepam 2 Mg/Ml Vial) 1 mg IV Q1HR PRN PRN Reason: agitation Last Admin: 07/18/20 11:57 Dose: 1 mg Documented by: Methylprednisolone Sodium Succinate (Methylprednisolone Sod Succinate 40 Mg/1 Ml Inj) 20 mg IV Q24HR [facility] Last Admin: 07/23/20 10:05 Dose: 20 mg Documented by: Metoprolol Tartrate (Metoprolol Tartrate 5 Mg/5 Ml Inj) 5 mg IV Q6HR PRN PRN Reason: Tachyarrhythmias Last Admin: 07/08/20 14:38 Dose: 5 mg Documented by: Metoprolol Tartrate (Metoprolol Tartrate 25 Mg Tab) 12.5 mg PO BID [facility] Last Admin: 07/23/20 10:05 Dose: 12.5 mg Documented by: Midodrine (Midodrine 5 Mg Tab) 10 mg PO TID@0800,1200,1600 [facility] Last Admin: 07/23/20 15:28 Dose: 10 mg Documented by: Multi-Ingred Cream/Lotion/Oil/Oint (Mineral Oil/Petrolatum, White Ophth Oint 3.5 Gm) 1 applic OU Q4HR PRN PRN Reason: Dry Eye(s) Olanzapine (Olanzapine 5 Mg Tab) 5 mg PO QHS [facility] Last Admin: 07/22/20 22:07 Dose: 5 mg Documented by: Phenobarbital (Phenobarbital 32.4 Mg Tab) 32.4 mg PO BID [facility] Last Admin: 07/23/20 10:05 Dose: 32.4 mg Documented by: Quetiapine Fumarate (Quetiapine 200 Mg Tab) 200 mg PO QAM [facility] Last Admin: 07/23/20 10:05 Dose: 200 mg Documented by: Senna (Sennosides 8.6 Mg Tab) 17.2 mg PO BID PRN PRN Reason: Laxative Effect Simple Syrup (Simple Syrup 15 Ml) 15 ml FEEDTUBE PRN PRN PRN Reason: Hypoglycemia Last Admin: 07/15/20 05:35 Dose: 15 ml Documented by: Simple Syrup (Simple Syrup 15 Ml) 30 ml FEEDTUBE PRN PRN PRN Reason: Hypoglycemia Sodium Bicarbonate (Sodium Bicarbonate 325 Mg Tab) 325 mg FEEDTUBE PRN PRN PRN Reason: For Clogged Feeding Tube Sodium Chloride (Sodium Chloride 0.9% 10 Ml Flush Syringe) 10 ml IV BID [facility] Last Admin: 07/23/20 10:07 Dose: 10 ml Documented by: Physical Examination - Physical Exam Narrative exam: Physical Exam: Constitutional: Alert, cooperative. No acute distress. On high flow nasal cannula. Head, Ears, Nose: Normocephalic, atraumatic. Eyes: Conjunctivae/corneas clear. No icterus. Neck: Supple, no meningeal signs Oral: dentition fair, no thrush Cardiovascular: S1, S2 normal. Respiratory: Good air entry, clear to auscultation bilaterally. Chest tube removed. GI: Soft, non-tender; bowel sounds normal. No peritoneal signs. Musculoskeletal: No pedal edema, no cyanosis. Skin: No rash or abscess Hem/Lymphatic: No palpable cervical or supraclavicular nodes. Psych: Mood ok. Affect normal Neurological: Awake, alert, oriented. No gross abnormality - Constitutional Vitals: Vital Signs Temp Pulse Resp BP Pulse Ox 97.7 F 108 H 36 H 113/73 94 07/23/20 12:00 07/23/20 18:00 07/23/20 18:00 07/23/20 18:00 07/23/20 18:00 Temperature -Last 24 Hours Temperature 97.7 F Temperature 98 F Temperature 98.6 F Temperature 98.3 F Temperature 98.0 F Results - Labs CBC & Chem 7: 07/23/20 05:58 07/23/20 05:58 Labs: Abnormal lab results 07/22/20 07/23/20 07/23/20 Range/Units 23:25 05:58 05:58 WBC 12.2 H (4.5-11.0) K/mm3 RBC 3.44 L (3.65-5.03) M/mm3 Hgb 10.9 L (11.8-15.2) gm/dl Hct 33.9 L (35.5-45.6) % MCV 99 H (84-94) fl RDW 16.9 H (13.2-15.2) % [place] % (Auto) 10.0 H (0.0-7.3) % [place] # (Auto) 1.2 H (0.0-0.8) K/mm3 Seg Neutrophils # 8.3 H (1.8-7.7) K/mm3 Potassium 2.9 L* (3.6-5.0) mmol/L Chloride 94.9 L (98-107) mmol/L Carbon Dioxide 33 H D (22-30) mmol/L Creatinine 0.4 L (0.8-1.3) mg/dL Glucose 129 H (75-100) mg/dL POC Glucose 164 H (70-105) mg/dL Albumin 3.5 L (3.9-5) g/dL 07/23/20 07/23/20 07/23/20 Range/Units 06:02 12:14 17:20 WBC (4.5-11.0) K/mm3 RBC (3.65-5.03) M/mm3 Hgb (11.8-15.2) gm/dl Hct (35.5-45.6) % MCV (84-94) fl RDW (13.2-15.2) % [place] % (Auto) (0.0-7.3) % [place] # (Auto) (0.0-0.8) K/mm3 Seg Neutrophils # (1.8-7.7) K/mm3 Potassium (3.6-5.0) mmol/L Chloride (98-107) mmol/L Carbon Dioxide (22-30) mmol/L Creatinine (0.8-1.3) mg/dL Glucose (75-100) mg/dL POC Glucose 111 H 142 H 150 H (70-105) mg/dL Albumin (3.9-5) g/dL Assessment and Plan Cultures: Blood culture 04/28/2020 no growth today SARS CoV2 PCR positive Sputum and urine culture with no significant growth Blood culture 07/13/2020 Pseudomonas aeruginosa pending DOLLY. Assessment: 50 years old male with history of alcohol dependence and obesity admitted on 05/09/2020 due to 5-day history of generalized malaise, fatigue, body aches, dyspnea exertion, cough and shortness of breath, tested positive for COVID-19 2 days before admission: #Pseudomonas bacteremia: Awaiting ID and DOLLY. Currently on cefepime, fevers have resolved since initiation of antibiotics. Continue pending results. Possibly from lungs? #VAP: extubated since onset of bacteremia. Given Pseudomonas in the blood and bilateral airspace disease, presumed VAP. Elevated procalcitonin. #Severe sepsis: likely due to bilateral pneumonia from COVID. #COVID-19: Diagnosed in early May, now with negative PCR. #Acute hypoxemic respiratory failure: intubated on 05/22/2020. Extubated 07/13/2020 #Pneumothorax: Chest tube removed today. Recommendations: -Continue cefepime 2 g every 8 hours. Will need 2 weeks of antibiotics total. Can discharge with levofloxacin to complete 2 weeks. Sensitivities documented and scanned reports under laboratories. Patricia Buchanan MD [facility], [facility] O: [phone] F: [phone]
--- NOTE | 2020-07-24 03:04 | XRay Report ---
CHEST 1 VIEW 0147 INDICATION / CLINICAL INFORMATION: s/p removal of chest tube COMPARISON: 07/23/2020 FINDINGS: SUPPORT DEVICES: Right thoracostomy tube has been removed. HEART / MEDIASTINUM: Stable LUNGS / PLEURA: Bilateral interstitial infiltrates appear minimally worse. No pneumothorax. ADDITIONAL FINDINGS: No significant additional findings. Signer Name: Cresencio Matthews MD Signed: 07/24/2020 3:00 AM Workstation Name: [id number]
[2020-07-24] MEDS: INSULIN LISPRO 100 UNIT/ML VIAL 3 mL SUB-Q SCH ×4 (05:23→17:45)
[2020-07-24] MEDS: CEFEPIME/NS 2 GM/100 ML 2 GM/100 ML BAG IV SCH ×3 (05:23→22:57)
[2020-07-24 06:10] LABS: Basophils # (Auto) 0.1 K/mm3 (0.0-0.1); Basophils % (Auto) 0.6 % (0.0-1.8); Eosinophils # (Auto) 0.3 K/mm3 (0.0-0.4); Eosinophils % (Auto) 1.9 % (0.0-4.3); Hematocrit 33.4 % (35.5-45.6); Hemoglobin 10.8 gm/dl (11.8-15.2); Lymphocytes # (Auto) 2.6 K/mm3 (1.2-5.4); Lymphocytes % (Auto) 19.6 % (13.4-35.0); Mean Corpuscular HGB Conc 32 % (32-34); Mean Corpuscular Volume 98 fl (84-94); Monocytes # (Auto) 1.3 K/mm3 (0.0-0.8); Platelet Count 378 K/mm3 (140-440); Red Cell Distribution Width 16.7 % (13.2-15.2)
[2020-07-24 06:34] LABS: Blood Urea Nitrogen 11 mg/dL (9-20); Calcium 9.2 mg/dL (8.4-10.2); Hemolysis Index 10
[2020-07-24 06:49] LABS: BUN/Creatinine Ratio 37
[2020-07-24] MEDS: ENOXAPARIN 80 MG/0.8 ML INJ SUB-Q SCH ×2 (09:16→22:58)
[2020-07-24] MEDS: ENOXAPARIN 30 MG/0.3 ML INJ SUB-Q SCH ×2 (09:16→22:58)
[2020-07-24] MEDS: DOCUSATE SODIUM 100 MG/10 ML ORAL LIQD PO SCH ×3 (09:17→23:00)
[2020-07-24] MEDS: FOLIC ACID 1 MG TAB PO SCH (09:17)
[2020-07-24] MEDS: METOPROLOL TARTRATE 25 MG TAB PO SCH ×2 (09:17→22:57)
[2020-07-24] MEDS: guaiFENesin ER 600 MG TAB PO SCH ×2 (09:17→22:57)
[2020-07-24] MEDS: MIDODRINE 5 MG TAB PO SCH ×3 (09:18→17:45)
[2020-07-24] MEDS: LANSOPRAZOLE 30 MG SOLUTAB FEEDTUBE SCH (09:18)
[2020-07-24] MEDS: QUEtiapine 200 MG TAB PO SCH (09:18)
[2020-07-24] MEDS: methylPREDNISolone Sod Succinate 40 MG/1 ML INJ IV SCH (09:18)
[2020-07-24] MEDS: PHENobarbital 32.4 MG TAB PO SCH ×2 (09:19→22:57)
--- NOTE | 2020-07-24 09:34 | Progress Note ---
Subjective - Reason for Consult Consult date: 07/24/20 Reason for consult: delirium - Chief Complaint Chief complaint: The patient was seen today, he is a/o x 2. His nurse is at bedside and states the patient has not been a problem and has been calm and cooperative. He is calm, cooperative and pleasant as we speak. He is coughing and says he feels bloated. He describes his mood as "alright" He says he didn't sleep to good because of the discomforts of his stomach. The patient denies SI/HI or hallucinations of any kind. MENTAL STATUS EXAMINATION General Appearance and Behavior: Age appropriate, good hygiene, wearing appro priate clothes, cooperative polite with questioning. Cooperation: engaged Psychomotor Behavior: Psychomotor normal Mood: alright Affect and affective range: congruent with mood Thought Process: logical Thought Content: within reality Speech: Low volume, Regular rate and rhythm, Intellectual Functioning: improved Suicidal Ideation: none Homicidal Ideation: none Impulse Control: Unimpaired Insight and Judgment: unimpaired Memory: memory improved Attention: alert and oriented Assessment and Plan (1) Delirium due to another medical condition (F05) Current Visit: Yes Status: Acute Treatment Continue current medications Risks, benefits and alternatives of medications discussed with the patient, questions answered and consent obtained from patient. PSYCHOTHERAPY: Supportive psychotherapy provided MEDICAL: Per primary team DELIRIUM PRECAUTIONS: Please re-orient patient frequently, keep lights on during the day, and minimize benzodiazepines and opiates as these medications could worsen patient's confusion. QUALITY ASSURANCE CONSULTANT: Defer to primary DISPOSITION: Do Not Recommend acute inpatient psychiatric hospitalization at this time but patient will be followed. Case discussed with Dr. Foster who agrees with current disposition Will continue to follow to monitor psych progress and med management. Thank you for the consult. Please contact with any questions and/or concerns. Mental Status Exam - Vital signs Last Vital Signs Temp 97.7 F 07/24/20 04:00 Pulse 116 H 07/24/20 09:17 Resp 36 H 07/24/20 06:00 BP 122/75 07/24/20 09:17 Pulse Ox 95 07/24/20 06:00
--- NOTE | 2020-07-24 12:27 | Event Note ---
Date: 07/24/20 CXR reviewed from this morning after chest tube was removed yesterday. It showed no pneumothorax. No further intervention is indicated at this time and I will sign off. Can change dressing in 4 days. (chest tube tract needs time to close before removing dressing as to not create a sucking chest wound)
--- NOTE | 2020-07-24 12:59 | Progress Note ---
Assessment and Plan Acute hypoxemic respiratory failure due to COVID-19 Severe Sepsis Bilateral pneumonia Acute kidney injury (SEN) with acute tubular necrosis (ATN) Alcohol dependence Elevated liver function tests - continue to wean supplemental oxygen for target O2 sat's > 92% acutely (50% now) - continue aspiration precautions - continue psychoactive medications per mental health team - continue care as below otherwise; - Psychiatry input appreciated - continue BIPAP scheduled qhs with prn daytime use - continue bid protonix - continue bowel regimen - aspiration precautions - continue bronchodilators with pulmonary hygiene per RT - accuchecks with glycemic control per SSI for target blood glucose of < 180 mg/dL; avoid hypoglycemia - enteral nutritional support at goal rate as tolerated - repeat COVID-19 testing is negative X 2 - continue Zinc & Vit C supplementaion - wean systemic steroids for Asthma / severe COVID infection - continue empiric full dose anticoagulation re: elevated d-dimers / hypercoagulable state - completed remdesivir dosing (total 5 days) - empiric AB's coverage per ID rec's - avoid nephrotoxins, renally dose all medications - continue to avoid benzodiazepine's, reduce the possibility of delirium - continue wound care per RN / WCN - prn analgesia per CPOT score - Maintenance of sleep-wake cycle, avoid delirium - continue to avoid benzodiazepine's, reduce the possibility of delirium - G.I. & VTE prophylaxis - PT/OT/ROM exercises - continue mobility protocols for pressure ulcer prophylaxis - Monitor hemodynamics closely - continue other care per attending / other consultants - discharge planning ongoing concurrently - transfer to [facility] ok .... Re-evaluate in am & prn CONDITION: FAIR PROGNOSIS: GUARDED CODE STATUS: FULL CODE I have spent ( >35 ) minutes with the patient w/ >50% of the time spent counseling and/or coordinating care for this patient. Counseling topics and/or how time was spent coordinating patient's care is outlined in the impression and plan above. Subjective Date of service: 07/24/20 Principal diagnosis: Ac hypoxemic resp failure; COVID-19; Severe Sepsis; Shaggy PNA; Alcohol Abuse Interval history: Patient is seen today for: Acute hypoxemic respiratory failure due to COVID-19; Severe Sepsis; Bilateral pneumonia; Alcohol dependence; Elevated liver function tests Seen and examined at bedside; 24hour events reviewed; nursing and respiratory care staff consulted; no adverse overnight events reported to me; resting in bed ; chest tube pulled; no recurrent pneumothorax; no emesis or overt aspiration Objective Vital Signs - 12hr 07/24/20 07/24/20 07/24/20 01:00 02:00 03:00 Temperature Pulse Rate 94 H 98 H 101 H Pulse Rate [ From Monitor] Respiratory 21 Rate Blood Pressure 108/66 104/70 112/79 O2 Sat by Pulse 95 95 94 Oximetry 07/24/20 07/24/20 07/24/20 04:00 05:00 06:00 Temperature 97.7 F Pulse Rate 105 H 114 H 108 H Pulse Rate [ 103 H From Monitor] Respiratory 32 H 31 H 36 H Rate Blood Pressure 119/78 108/78 122/85 O2 Sat by Pulse 94 92 95 Oximetry 07/24/20 09:17 Temperature Pulse Rate 116 H Pulse Rate [ From Monitor] Respiratory Rate Blood Pressure 122/75 O2 Sat by Pulse Oximetry Constitutional: appears uncomfortable, other (middle aged obese male with mildly increased respiratory effort at rest ) Eyes: non-icteric ENT: oropharynx moist, other (extubated) Neck: supple, no JVD Effort: mildly labored Ascultation: Bilateral: diminished breath sounds, rhonchi (scant) Percussion: Bilateral: not dull Cardiovascular: regular rate and rhythm, other (No R/M) Gastrointestinal: normoactive bowel sounds, soft, non-tender, non-distended (protuberant), other (distended and firm) Integumentary: normal Extremities: no cyanosis, no edema, pulses normal, no ischemia or petechiae Neurologic: non-focal exam (non focal grossly; weak), pupils equal and round, CN II-XII normal, motor strength normal and (very weak ) Psychiatric: mood appropriate, affect normal CBC and BMP: 07/24/20 05:05 07/24/20 05:05 ABG, PT/INR, D-dimer: ABG ABG pH 7.477 (7.320-7.450) H 07/13/20 13:52 POC ABG pCO2 54.4 mmHg (32.0-48.0) H 07/13/20 13:52 ABG pCO2 53.1 mm Hg 07/08/20 Unknown POC ABG pO2 126.8 mmHg (83-108) H 07/13/20 13:52 ABG pO2 75.3 mm Hg (80.0-90.0) L 07/08/20 Unknown POC ABG HCO3 39.3 07/13/20 13:52 ABG O2 Saturation 96.5 % (95.0-99.0) 07/08/20 Unknown PT/INR, D-dimer PT 11.8 Sec. (12.2-14.9) L 06/22/20 14:29 INR 0.88 (0.87-1.13) 06/22/20 14:29 D-Dimer 1887.82 ng/mlDDU (0-234) H 05/20/20 08:16 Abnormal lab findings: Abnormal Labs 05/09/20 05/09/20 05/09/20 12:59 12:59 12:59 WBC 11.8 H RBC Hgb Hct MCV 96 H MCH 34 H MCHC 35 H RDW Lymph % (Auto) 6.9 L [place] % (Auto) Lymph # (Auto) 0.8 L [place] # (Auto) Baso # (Auto) Seg Neutrophils % 87.5 H Seg Neuts % (Manual) Lymphocytes % (Manual) Nucleated RBC % Seg Neutrophils # 10.3 H Seg Neutrophils # Man Lymphocytes # (Manual) Monocytes # (Manual) Eosinophils # (Manual) PT INR APTT D-Dimer Heparin Anti-Xa Level ABG pH POC ABG pCO2 POC ABG pO2 ABG pO2 ABG HCO3 ABG O2 Saturation ABG Base Excess ABG Hemoglobin ABG Oxyhemoglobin ABG Sodium ABG Potassium ABG Chloride ABG Glucose Oxyhemoglobin Carboxyhemoglobin Sodium 130 L Potassium 3.5 L Chloride 86.4 L Carbon Dioxide BUN 33 H Creatinine 2.3 H Glucose 156 H POC Glucose Lactic Acid Calcium Magnesium Ferritin Total Bilirubin 3.40 H Direct Bilirubin 1.7 H AST 385 H ALT 134 H Alkaline Phosphatase Lactate Dehydrogenase C-Reactive Protein Total Protein Albumin 3.0 L Triglycerides Lipase Arterial Blood Glucose Arterial Blood Ionized Calcium Urine WBC (Auto) Coronavirus (PCR) SARS-CoV-2 IgG Ab Crossmatch 05/09/20 05/09/20 05/09/20 12:59 12:59 12:59 WBC RBC Hgb Hct MCV MCH MCHC RDW Lymph % (Auto) [place] % (Auto) Lymph # (Auto) [place] # (Auto) Baso # (Auto) Seg Neutrophils % Seg Neuts % (Manual) Lymphocytes % (Manual) Nucleated RBC % Seg Neutrophils # Seg Neutrophils # Man Lymphocytes # (Manual) Monocytes # (Manual) Eosinophils # (Manual) PT INR APTT D-Dimer 3242.51 H Heparin Anti-Xa Level ABG pH POC ABG pCO2 POC ABG pO2 ABG pO2 ABG HCO3 ABG O2 Saturation ABG Base Excess ABG Hemoglobin ABG Oxyhemoglobin ABG Sodium ABG Potassium ABG Chloride ABG Glucose Oxyhemoglobin Carboxyhemoglobin Sodium Potassium Chloride Carbon Dioxide BUN Creatinine Glucose 158 H POC Glucose Lactic Acid 3.50 H* Calcium Magnesium Ferritin Total Bilirubin Direct Bilirubin AST ALT Alkaline Phosphatase Lactate Dehydrogenase 2166 H C-Reactive Protein 39.00 H Total Protein Albumin Triglycerides Lipase Arterial Blood Glucose Arterial Blood Ionized Calcium Urine WBC (Auto) Coronavirus (PCR) SARS-CoV-2 IgG Ab Crossmatch 05/09/20 05/09/20 05/09/20 12:59 14:20 14:20 WBC RBC Hgb Hct MCV MCH MCHC RDW Lymph % (Auto) [place] % (Auto) Lymph # (Auto) [place] # (Auto) Baso # (Auto) Seg Neutrophils % Seg Neuts % (Manual) Lymphocytes % (Manual) Nucleated RBC % Seg Neutrophils # Seg Neutrophils # Man Lymphocytes # (Manual) Monocytes # (Manual) Eosinophils # (Manual) PT INR APTT D-Dimer 2861.78 H Heparin Anti-Xa Level ABG pH POC ABG pCO2 POC ABG pO2 ABG pO2 ABG HCO3 ABG O2 Saturation ABG Base Excess ABG Hemoglobin ABG Oxyhemoglobin ABG Sodium ABG Potassium ABG Chloride ABG Glucose Oxyhemoglobin Carboxyhemoglobin Sodium Potassium Chloride Carbon Dioxide BUN Creatinine Glucose POC Glucose Lactic Acid 2.20 H* Calcium Magnesium Ferritin 33993.0 H Total Bilirubin Direct Bilirubin AST ALT Alkaline Phosphatase Lactate Dehydrogenase C-Reactive Protein Total Protein Albumin Triglycerides Lipase Arterial Blood Glucose Arterial Blood Ionized Calcium Urine WBC (Auto) Coronavirus (PCR) SARS-CoV-2 IgG Ab Crossmatch 05/09/20 05/09/20 05/09/20 14:20 14:20 15:56 WBC RBC Hgb Hct MCV MCH MCHC RDW Lymph % (Auto) [place] % (Auto) Lymph # (Auto) [place] # (Auto) Baso # (Auto) Seg Neutrophils % Seg Neuts % (Manual) Lymphocytes % (Manual) Nucleated RBC % Seg Neutrophils # Seg Neutrophils # Man Lymphocytes # (Manual) Monocytes # (Manual) Eosinophils # (Manual) PT INR APTT D-Dimer Heparin Anti-Xa Level ABG pH POC ABG pCO2 POC ABG pO2 57.3 L ABG pO2 ABG HCO3 ABG O2 Saturation ABG Base Excess ABG Hemoglobin ABG Oxyhemoglobin 86.3 L ABG Sodium 129.9 L ABG Potassium ABG Chloride ABG Glucose 146 H Oxyhemoglobin Carboxyhemoglobin Sodium Potassium Chloride Carbon Dioxide BUN Creatinine Glucose 143 H POC Glucose Lactic Acid Calcium Magnesium Ferritin 49958.0 H Total Bilirubin Direct Bilirubin AST ALT Alkaline Phosphatase Lactate Dehydrogenase 1953 H C-Reactive Protein 33.50 H Total Protein Albumin Triglycerides Lipase Arterial Blood Glucose 146 H Arterial Blood Ionized Calcium 3.9 L Urine WBC (Auto) Coronavirus (PCR) SARS-CoV-2 IgG Ab Crossmatch 05/10/20 05/10/20 05/10/20 10:32 10:32 18:50 WBC 15.4 H RBC Hgb Hct MCV 97 H MCH 33 H MCHC RDW 13.1 L Lymph % (Auto) [place] % (Auto) Lymph # (Auto) [place] # (Auto) Baso # (Auto) Seg Neutrophils % Seg Neuts % (Manual) 89.0 H Lymphocytes % (Manual) 8.0 L Nucleated RBC % Seg Neutrophils # Seg Neutrophils # Man 13.7 H Lymphocytes # (Manual) Monocytes # (Manual) Eosinophils # (Manual) PT INR APTT D-Dimer Heparin Anti-Xa Level ABG pH POC ABG pCO2 POC ABG pO2 ABG pO2 ABG HCO3 ABG O2 Saturation ABG Base Excess ABG Hemoglobin ABG Oxyhemoglobin ABG Sodium ABG Potassium ABG Chloride ABG Glucose Oxyhemoglobin Carboxyhemoglobin Sodium 136 L Potassium Chloride 97.4 L Carbon Dioxide BUN 37 H Creatinine 1.7 H Glucose 209 H POC Glucose Lactic Acid Calcium Magnesium Ferritin > 2000.0 H Total Bilirubin Direct Bilirubin AST ALT Alkaline Phosphatase Lactate Dehydrogenase C-Reactive Protein Total Protein Albumin Triglycerides Lipase Arterial Blood Glucose Arterial Blood Ionized Calcium Urine WBC (Auto) Coronavirus (PCR) SARS-CoV-2 IgG Ab Crossmatch 05/10/20 05/10/20 05/10/20 18:50 19:00 Unknown WBC RBC Hgb Hct MCV MCH MCHC RDW Lymph % (Auto) [place] % (Auto) Lymph # (Auto) [place] # (Auto) Baso # (Auto) Seg Neutrophils % Seg Neuts % (Manual) Lymphocytes % (Manual) Nucleated RBC % Seg Neutrophils # Seg Neutrophils # Man Lymphocytes # (Manual) Monocytes # (Manual) Eosinophils # (Manual) PT INR APTT D-Dimer > 61147 H Heparin Anti-Xa Level ABG pH POC ABG pCO2 POC ABG pO2 ABG pO2 ABG HCO3 ABG O2 Saturation ABG Base Excess ABG Hemoglobin ABG Oxyhemoglobin ABG Sodium ABG Potassium ABG Chloride ABG Glucose Oxyhemoglobin Carboxyhemoglobin Sodium Potassium Chloride Carbon Dioxide BUN Creatinine Glucose POC Glucose Lactic Acid Calcium Magnesium Ferritin Total Bilirubin Direct Bilirubin AST ALT Alkaline Phosphatase Lactate Dehydrogenase 1879 H C-Reactive Protein 24.80 H Total Protein Albumin Triglycerides Lipase Arterial Blood Glucose Arterial Blood Ionized Calcium Urine WBC (Auto) 11.0 H Coronavirus (PCR) SARS-CoV-2 IgG Ab Crossmatch 05/10/20 05/11/20 05/11/20 Unknown 07:30 07:30 WBC RBC Hgb Hct MCV MCH MCHC RDW Lymph % (Auto) [place] % (Auto) Lymph # (Auto) [place] # (Auto) Baso # (Auto) Seg Neutrophils % Seg Neuts % (Manual) Lymphocytes % (Manual) Nucleated RBC % Seg Neutrophils # Seg Neutrophils # Man Lymphocytes # (Manual) Monocytes # (Manual) Eosinophils # (Manual) PT INR APTT D-Dimer > 2000 H Heparin Anti-Xa Level ABG pH POC ABG pCO2 POC ABG pO2 ABG pO2 ABG HCO3 ABG O2 Saturation ABG Base Excess ABG Hemoglobin ABG Oxyhemoglobin ABG Sodium ABG Potassium ABG Chloride ABG Glucose Oxyhemoglobin Carboxyhemoglobin Sodium Potassium Chloride 96.3 L Carbon Dioxide BUN 36 H Creatinine Glucose 161 H POC Glucose Lactic Acid Calcium 8.3 L Magnesium Ferritin Total Bilirubin 1.50 H Direct Bilirubin 0.6 H AST 178 H ALT 111 H Alkaline Phosphatase Lactate Dehydrogenase C-Reactive Protein Total Protein Albumin 3.0 L Triglycerides Lipase Arterial Blood Glucose Arterial Blood Ionized Calcium Urine WBC (Auto) Coronavirus (PCR) Positive A SARS-CoV-2 IgG Ab Crossmatch 05/11/20 05/11/20 05/11/20 07:30 07:30 07:30 WBC RBC Hgb Hct MCV MCH MCHC RDW Lymph % (Auto) [place] % (Auto) Lymph # (Auto) [place] # (Auto) Baso # (Auto) Seg Neutrophils % Seg Neuts % (Manual) Lymphocytes % (Manual) Nucleated RBC % Seg Neutrophils # Seg Neutrophils # Man Lymphocytes # (Manual) Monocytes # (Manual) Eosinophils # (Manual) PT INR APTT D-Dimer Heparin Anti-Xa Level ABG pH POC ABG pCO2 POC ABG pO2 ABG pO2 ABG HCO3 ABG O2 Saturation ABG Base Excess ABG Hemoglobin ABG Oxyhemoglobin ABG Sodium ABG Potassium ABG Chloride ABG Glucose Oxyhemoglobin Carboxyhemoglobin Sodium Potassium Chloride Carbon Dioxide BUN Creatinine Glucose POC Glucose Lactic Acid Calcium Magnesium Ferritin 43429.0 H Total Bilirubin Direct Bilirubin AST ALT Alkaline Phosphatase Lactate Dehydrogenase 1523 H C-Reactive Protein 12.90 H Total Protein Albumin Triglycerides Lipase Arterial Blood Glucose Arterial Blood Ionized Calcium Urine WBC (Auto) Coronavirus (PCR) SARS-CoV-2 IgG Ab Reactive A Crossmatch 05/13/20 05/13/20 05/15/20 05:20 05:20 08:15 WBC RBC Hgb Hct MCV MCH MCHC RDW Lymph % (Auto) [place] % (Auto) Lymph # (Auto) [place] # (Auto) Baso # (Auto) Seg Neutrophils % Seg Neuts % (Manual) Lymphocytes % (Manual) Nucleated RBC % Seg Neutrophils # Seg Neutrophils # Man Lymphocytes # (Manual) Monocytes # (Manual) Eosinophils # (Manual) PT INR APTT D-Dimer > 49798 H 5318.28 H Heparin Anti-Xa Level ABG pH POC ABG pCO2 POC ABG pO2 ABG pO2 ABG HCO3 ABG O2 Saturation ABG Base Excess ABG Hemoglobin ABG Oxyhemoglobin ABG Sodium ABG Potassium ABG Chloride ABG Glucose Oxyhemoglobin Carboxyhemoglobin Sodium Potassium Chloride Carbon Dioxide 32 H BUN 30 H Creatinine Glucose 156 H POC Glucose Lactic Acid Calcium Magnesium 2.60 H Ferritin Total Bilirubin 1.40 H Direct Bilirubin AST 121 H ALT 119 H Alkaline Phosphatase Lactate Dehydrogenase 957 H C-Reactive Protein 4.00 H Total Protein Albumin 3.0 L Triglycerides Lipase Arterial Blood Glucose Arterial Blood Ionized Calcium Urine WBC (Auto) Coronavirus (PCR) SARS-CoV-2 IgG Ab Crossmatch 05/15/20 05/15/20 05/15/20 08:15 08:15 08:15 WBC 12.4 H RBC Hgb Hct MCV 98 H MCH 33 H MCHC RDW Lymph % (Auto) 9.7 L [place] % (Auto) Lymph # (Auto) [place] # (Auto) Baso # (Auto) Seg Neutrophils % 86.8 H Seg Neuts % (Manual) Lymphocytes % (Manual) Nucleated RBC % Seg Neutrophils # 10.8 H Seg Neutrophils # Man Lymphocytes # (Manual) Monocytes # (Manual) Eosinophils # (Manual) PT INR APTT D-Dimer Heparin Anti-Xa Level ABG pH POC ABG pCO2 POC ABG pO2 ABG pO2 ABG HCO3 ABG O2 Saturation ABG Base Excess ABG Hemoglobin ABG Oxyhemoglobin ABG Sodium ABG Potassium ABG Chloride ABG Glucose Oxyhemoglobin Carboxyhemoglobin Sodium Potassium Chloride 94.8 L Carbon Dioxide 32 H BUN 22 H Creatinine Glucose 115 H POC Glucose Lactic Acid Calcium 8.3 L Magnesium Ferritin 2494.0 H Total Bilirubin Direct Bilirubin AST 73 H ALT 121 H Alkaline Phosphatase Lactate Dehydrogenase 835 H C-Reactive Protein 3.40 H Total Protein 6.1 L Albumin 3.0 L Triglycerides Lipase Arterial Blood Glucose Arterial Blood Ionized Calcium Urine WBC (Auto) Coronavirus (PCR) SARS-CoV-2 IgG Ab Crossmatch 05/17/20 05/17/20 05/17/20 05:50 05:50 05:50 WBC RBC Hgb Hct MCV MCH MCHC RDW Lymph % (Auto) [place] % (Auto) Lymph # (Auto) [place] # (Auto) Baso # (Auto) Seg Neutrophils % Seg Neuts % (Manual) Lymphocytes % (Manual) Nucleated RBC % Seg Neutrophils # Seg Neutrophils # Man Lymphocytes # (Manual) Monocytes # (Manual) Eosinophils # (Manual) PT INR APTT D-Dimer 2911.42 H Heparin Anti-Xa Level ABG pH POC ABG pCO2 POC ABG pO2 ABG pO2 ABG HCO3 ABG O2 Saturation ABG Base Excess ABG Hemoglobin ABG Oxyhemoglobin ABG Sodium ABG Potassium ABG Chloride ABG Glucose Oxyhemoglobin Carboxyhemoglobin Sodium 136 L Potassium Chloride 96.0 L Carbon Dioxide 34 H BUN 22 H Creatinine Glucose 140 H POC Glucose Lactic Acid Calcium Magnesium Ferritin 2082.0 H Total Bilirubin Direct Bilirubin AST ALT 75 H Alkaline Phosphatase Lactate Dehydrogenase 601 H C-Reactive Protein 2.70 H Total Protein Albumin 2.9 L Triglycerides Lipase Arterial Blood Glucose Arterial Blood Ionized Calcium Urine WBC (Auto) Coronavirus (PCR) SARS-CoV-2 IgG Ab Crossmatch 05/17/20 05/18/20 05/20/20 05:50 12:22 08:16 WBC RBC Hgb Hct MCV 98 H MCH 33 H MCHC RDW Lymph % (Auto) 8.0 L [place] % (Auto) Lymph # (Auto) 0.8 L [place] # (Auto) Baso # (Auto) Seg Neutrophils % 89.3 H Seg Neuts % (Manual) Lymphocytes % (Manual) Nucleated RBC % Seg Neutrophils # 8.8 H Seg Neutrophils # Man Lymphocytes # (Manual) Monocytes # (Manual) Eosinophils # (Manual) PT INR APTT D-Dimer 1887.82 H Heparin Anti-Xa Level ABG pH POC ABG pCO2 POC ABG pO2 ABG pO2 ABG HCO3 ABG O2 Saturation ABG Base Excess ABG Hemoglobin ABG Oxyhemoglobin ABG Sodium ABG Potassium ABG Chloride ABG Glucose Oxyhemoglobin Carboxyhemoglobin Sodium Potassium Chloride Carbon Dioxide BUN Creatinine Glucose POC Glucose 178 H Lactic Acid Calcium Magnesium Ferritin Total Bilirubin Direct Bilirubin AST ALT Alkaline Phosphatase Lactate Dehydrogenase C-Reactive Protein Total Protein Albumin Triglycerides Lipase Arterial Blood Glucose Arterial Blood Ionized Calcium Urine WBC (Auto) Coronavirus (PCR) SARS-CoV-2 IgG Ab Crossmatch 05/20/20 05/20/20 05/21/20 08:16 08:16 21:10 WBC RBC Hgb Hct MCV MCH MCHC RDW Lymph % (Auto) [place] % (Auto) Lymph # (Auto) [place] # (Auto) Baso # (Auto) Seg Neutrophils % Seg Neuts % (Manual) Lymphocytes % (Manual) Nucleated RBC % Seg Neutrophils # Seg Neutrophils # Man Lymphocytes # (Manual) Monocytes # (Manual) Eosinophils # (Manual) PT INR APTT D-Dimer Heparin Anti-Xa Level ABG pH 7.483 H POC ABG pCO2 POC ABG pO2 ABG pO2 50.0 L ABG HCO3 27.0 H ABG O2 Saturation 86.2 L ABG Base Excess 3.7 H ABG Hemoglobin ABG Oxyhemoglobin ABG Sodium ABG Potassium ABG Chloride ABG Glucose Oxyhemoglobin 84.2 L Carboxyhemoglobin Sodium Potassium Chloride Carbon Dioxide BUN Creatinine Glucose POC Glucose Lactic Acid Calcium Magnesium Ferritin 1960.0 H Total Bilirubin Direct Bilirubin AST ALT Alkaline Phosphatase Lactate Dehydrogenase 705 H C-Reactive Protein 3.10 H Total Protein Albumin Triglycerides Lipase Arterial Blood Glucose Arterial Blood Ionized Calcium Urine WBC (Auto) Coronavirus (PCR) SARS-CoV-2 IgG Ab Crossmatch 05/22/20 05/22/20 05/22/20 04:01 07:53 07:53 WBC 19.2 H RBC Hgb Hct MCV 98 H MCH 34 H MCHC RDW Lymph % (Auto) [place] % (Auto) Lymph # (Auto) [place] # (Auto) Baso # (Auto) Seg Neutrophils % Seg Neuts % (Manual) 96.0 H Lymphocytes % (Manual) 1.0 L Nucleated RBC % Seg Neutrophils # Seg Neutrophils # Man 18.4 H Lymphocytes # (Manual) 0.2 L Monocytes # (Manual) Eosinophils # (Manual) PT INR APTT D-Dimer Heparin Anti-Xa Level ABG pH POC ABG pCO2 53.8 H POC ABG pO2 125.5 H ABG pO2 ABG HCO3 ABG O2 Saturation ABG Base Excess ABG Hemoglobin ABG Oxyhemoglobin ABG Sodium 131.8 L ABG Potassium 4.8 H ABG Chloride 94.0 L ABG Glucose 163 H Oxyhemoglobin Carboxyhemoglobin Sodium 131 L Potassium Chloride 93.4 L Carbon Dioxide BUN 40 H Creatinine Glucose 176 H POC Glucose Lactic Acid Calcium Magnesium 2.70 H Ferritin Total Bilirubin 1.80 H Direct Bilirubin AST 45 H ALT 116 H Alkaline Phosphatase 181 H Lactate Dehydrogenase C-Reactive Protein Total Protein Albumin 2.6 L Triglycerides Lipase Arterial Blood Glucose 163 H Arterial Blood Ionized Calcium 4.5 L Urine WBC (Auto) Coronavirus (PCR) SARS-CoV-2 IgG Ab Crossmatch 05/23/20 05/24/20 05/24/20 04:17 03:07 04:08 WBC RBC Hgb Hct MCV MCH MCHC RDW Lymph % (Auto) [place] % (Auto) Lymph # (Auto) [place] # (Auto) Baso # (Auto) Seg Neutrophils % Seg Neuts % (Manual) Lymphocytes % (Manual) Nucleated RBC % Seg Neutrophils # Seg Neutrophils # Man Lymphocytes # (Manual) Monocytes # (Manual) Eosinophils # (Manual) PT INR APTT D-Dimer Heparin Anti-Xa Level ABG pH 7.328 L POC ABG pCO2 POC ABG pO2 ABG pO2 72.8 L 73.4 L ABG HCO3 31.0 H 34.0 H ABG O2 Saturation 93.5 L ABG Base Excess 3.5 H 7.7 H ABG Hemoglobin 13.3 L 12.1 L ABG Oxyhemoglobin ABG Sodium ABG Potassium ABG Chloride ABG Glucose Oxyhemoglobin 91.5 L 94.3 L Carboxyhemoglobin Sodium Potassium Chloride Carbon Dioxide BUN Creatinine Glucose POC Glucose 155 H Lactic Acid Calcium Magnesium Ferritin Total Bilirubin Direct Bilirubin AST ALT Alkaline Phosphatase Lactate Dehydrogenase C-Reactive Protein Total Protein Albumin Triglycerides Lipase Arterial Blood Glucose Arterial Blood Ionized Calcium Urine WBC (Auto) Coronavirus (PCR) SARS-CoV-2 IgG Ab Crossmatch 05/24/20 05/24/20 05/24/20 09:33 12:21 17:52 WBC RBC Hgb Hct MCV MCH MCHC RDW Lymph % (Auto) [place] % (Auto) Lymph # (Auto) [place] # (Auto) Baso # (Auto) Seg Neutrophils % Seg Neuts % (Manual) Lymphocytes % (Manual) Nucleated RBC % Seg Neutrophils # Seg Neutrophils # Man Lymphocytes # (Manual) Monocytes # (Manual) Eosinophils # (Manual) PT INR APTT D-Dimer Heparin Anti-Xa Level ABG pH POC ABG pCO2 POC ABG pO2 ABG pO2 ABG HCO3 ABG O2 Saturation ABG Base Excess ABG Hemoglobin ABG Oxyhemoglobin ABG Sodium ABG Potassium ABG Chloride ABG Glucose Oxyhemoglobin Carboxyhemoglobin Sodium Potassium Chloride Carbon Dioxide 34 H D BUN 28 H Creatinine 0.7 L Glucose 168 H POC Glucose 173 H 164 H Lactic Acid Calcium Magnesium Ferritin Total Bilirubin Direct Bilirubin AST ALT Alkaline Phosphatase Lactate Dehydrogenase C-Reactive Protein Total Protein Albumin Triglycerides Lipase Arterial Blood Glucose Arterial Blood Ionized Calcium Urine WBC (Auto) Coronavirus (PCR) SARS-CoV-2 IgG Ab Crossmatch 05/24/20 05/25/20 05/25/20 23:47 04:29 05:46 WBC RBC Hgb Hct MCV MCH MCHC RDW Lymph % (Auto) [place] % (Auto) Lymph # (Auto) [place] # (Auto) Baso # (Auto) Seg Neutrophils % Seg Neuts % (Manual) Lymphocytes % (Manual) Nucleated RBC % Seg Neutrophils # Seg Neutrophils # Man Lymphocytes # (Manual) Monocytes # (Manual) Eosinophils # (Manual) PT INR APTT D-Dimer Heparin Anti-Xa Level ABG pH POC ABG pCO2 68.6 H POC ABG pO2 ABG pO2 ABG HCO3 ABG O2 Saturation ABG Base Excess ABG Hemoglobin ABG Oxyhemoglobin ABG Sodium ABG Potassium 4.7 H ABG Chloride ABG Glucose 226 H Oxyhemoglobin Carboxyhemoglobin Sodium Potassium Chloride Carbon Dioxide BUN Creatinine Glucose POC Glucose 171 H 201 H Lactic Acid Calcium Magnesium Ferritin Total Bilirubin Direct Bilirubin AST ALT Alkaline Phosphatase Lactate Dehydrogenase C-Reactive Protein Total Protein Albumin Triglycerides Lipase Arterial Blood Glucose 226 H Arterial Blood Ionized Calcium Urine WBC (Auto) Coronavirus (PCR) SARS-CoV-2 IgG Ab Crossmatch 05/25/20 05/25/20 05/25/20 08:37 08:37 12:38 WBC 12.0 H RBC 3.64 L Hgb Hct MCV 99 H MCH 33 H MCHC RDW Lymph % (Auto) [place] % (Auto) Lymph # (Auto) [place] # (Auto) Baso # (Auto) Seg Neutrophils % Seg Neuts % (Manual) Lymphocytes % (Manual) Nucleated RBC % Seg Neutrophils # Seg Neutrophils # Man Lymphocytes # (Manual) Monocytes # (Manual) Eosinophils # (Manual) PT INR APTT D-Dimer Heparin Anti-Xa Level ABG pH POC ABG pCO2 POC ABG pO2 ABG pO2 ABG HCO3 ABG O2 Saturation ABG Base Excess ABG Hemoglobin ABG Oxyhemoglobin ABG Sodium ABG Potassium ABG Chloride ABG Glucose Oxyhemoglobin Carboxyhemoglobin Sodium Potassium Chloride 97.3 L Carbon Dioxide 35 H BUN 25 H Creatinine 0.7 L Glucose 191 H POC Glucose 182 H Lactic Acid Calcium Magnesium Ferritin Total Bilirubin Direct Bilirubin AST ALT Alkaline Phosphatase Lactate Dehydrogenase C-Reactive Protein Total Protein Albumin Triglycerides Lipase Arterial Blood Glucose Arterial Blood Ionized Calcium Urine WBC (Auto) Coronavirus (PCR) SARS-CoV-2 IgG Ab Crossmatch 05/25/20 05/26/20 05/26/20 18:16 00:06 04:50 WBC RBC Hgb Hct MCV MCH MCHC RDW Lymph % (Auto) [place] % (Auto) Lymph # (Auto) [place] # (Auto) Baso # (Auto) Seg Neutrophils % Seg Neuts % (Manual) Lymphocytes % (Manual) Nucleated RBC % Seg Neutrophils # Seg Neutrophils # Man Lymphocytes # (Manual) Monocytes # (Manual) Eosinophils # (Manual) PT INR APTT D-Dimer Heparin Anti-Xa Level ABG pH POC ABG pCO2 POC ABG pO2 ABG pO2 221.5 H ABG HCO3 40.4 H ABG O2 Saturation 99.3 H ABG Base Excess 12.8 H ABG Hemoglobin 10.4 L ABG Oxyhemoglobin ABG Sodium ABG Potassium ABG Chloride ABG Glucose Oxyhemoglobin Carboxyhemoglobin Sodium Potassium Chloride Carbon Dioxide BUN Creatinine Glucose POC Glucose 176 H 152 H Lactic Acid Calcium Magnesium Ferritin Total Bilirubin Direct Bilirubin AST ALT Alkaline Phosphatase Lactate Dehydrogenase C-Reactive Protein Total Protein Albumin Triglycerides Lipase Arterial Blood Glucose Arterial Blood Ionized Calcium Urine WBC (Auto) Coronavirus (PCR) SARS-CoV-2 IgG Ab Crossmatch 05/26/20 05/26/20 05/26/20 06:11 07:51 07:51 WBC 13.4 H RBC 3.64 L Hgb Hct MCV 98 H MCH 33 H MCHC RDW Lymph % (Auto) [place] % (Auto) Lymph # (Auto) [place] # (Auto) Baso # (Auto) Seg Neutrophils % Seg Neuts % (Manual) Lymphocytes % (Manual) Nucleated RBC % Seg Neutrophils # Seg Neutrophils # Man Lymphocytes # (Manual) Monocytes # (Manual) Eosinophils # (Manual) PT INR APTT D-Dimer Heparin Anti-Xa Level ABG pH POC ABG pCO2 POC ABG pO2 ABG pO2 ABG HCO3 ABG O2 Saturation ABG Base Excess ABG Hemoglobin ABG Oxyhemoglobin ABG Sodium ABG Potassium ABG Chloride ABG Glucose Oxyhemoglobin Carboxyhemoglobin Sodium Potassium Chloride 96.6 L Carbon Dioxide 39 H BUN 29 H Creatinine 0.7 L Glucose 174 H POC Glucose 165 H Lactic Acid Calcium Magnesium Ferritin Total Bilirubin Direct Bilirubin AST ALT Alkaline Phosphatase Lactate Dehydrogenase C-Reactive Protein Total Protein Albumin Triglycerides Lipase Arterial Blood Glucose Arterial Blood Ionized Calcium Urine WBC (Auto) Coronavirus (PCR) SARS-CoV-2 IgG Ab Crossmatch 05/26/20 05/27/20 05/27/20 23:23 03:43 05:29 WBC RBC Hgb Hct MCV MCH MCHC RDW Lymph % (Auto) [place] % (Auto) Lymph # (Auto) [place] # (Auto) Baso # (Auto) Seg Neutrophils % Seg Neuts % (Manual) Lymphocytes % (Manual) Nucleated RBC % Seg Neutrophils # Seg Neutrophils # Man Lymphocytes # (Manual) Monocytes # (Manual) Eosinophils # (Manual) PT INR APTT D-Dimer Heparin Anti-Xa Level ABG pH 7.480 H POC ABG pCO2 52.4 H POC ABG pO2 61.4 L ABG pO2 ABG HCO3 ABG O2 Saturation ABG Base Excess ABG Hemoglobin ABG Oxyhemoglobin ABG Sodium 134.9 L ABG Potassium ABG Chloride 95.0 L ABG Glucose 221 H Oxyhemoglobin Carboxyhemoglobin Sodium Potassium Chloride Carbon Dioxide BUN Creatinine Glucose POC Glucose 169 H 227 H Lactic Acid Calcium Magnesium Ferritin Total Bilirubin Direct Bilirubin AST ALT Alkaline Phosphatase Lactate Dehydrogenase C-Reactive Protein Total Protein Albumin Triglycerides Lipase Arterial Blood Glucose 221 H Arterial Blood Ionized Calcium 4.5 L Urine WBC (Auto) Coronavirus (PCR) SARS-CoV-2 IgG Ab Crossmatch 05/27/20 05/27/20 05/27/20 07:19 12:18 13:50 WBC RBC Hgb Hct MCV MCH MCHC RDW Lymph % (Auto) [place] % (Auto) Lymph # (Auto) [place] # (Auto) Baso # (Auto) Seg Neutrophils % Seg Neuts % (Manual) Lymphocytes % (Manual) Nucleated RBC % Seg Neutrophils # Seg Neutrophils # Man Lymphocytes # (Manual) Monocytes # (Manual) Eosinophils # (Manual) PT INR APTT D-Dimer Heparin Anti-Xa Level ABG pH POC ABG pCO2 POC ABG pO2 ABG pO2 ABG HCO3 ABG O2 Saturation ABG Base Excess ABG Hemoglobin ABG Oxyhemoglobin ABG Sodium ABG Potassium ABG Chloride ABG Glucose Oxyhemoglobin Carboxyhemoglobin Sodium Potassium Chloride Carbon Dioxide BUN Creatinine Glucose POC Glucose 114 H 148 H Lactic Acid Calcium Magnesium Ferritin Total Bilirubin Direct Bilirubin AST ALT Alkaline Phosphatase Lactate Dehydrogenase C-Reactive Protein Total Protein Albumin Triglycerides 247 H Lipase Arterial Blood Glucose Arterial Blood Ionized Calcium Urine WBC (Auto) Coronavirus (PCR) SARS-CoV-2 IgG Ab Crossmatch 05/28/20 05/28/20 05/28/20 00:13 04:16 05:22 WBC RBC Hgb Hct MCV MCH MCHC RDW Lymph % (Auto) [place] % (Auto) Lymph # (Auto) [place] # (Auto) Baso # (Auto) Seg Neutrophils % Seg Neuts % (Manual) Lymphocytes % (Manual) Nucleated RBC % Seg Neutrophils # Seg Neutrophils # Man Lymphocytes # (Manual) Monocytes # (Manual) Eosinophils # (Manual) PT INR APTT D-Dimer Heparin Anti-Xa Level ABG pH POC ABG pCO2 64.4 H POC ABG pO2 60.5 L ABG pO2 ABG HCO3 ABG O2 Saturation ABG Base Excess ABG Hemoglobin ABG Oxyhemoglobin ABG Sodium ABG Potassium ABG Chloride 95.0 L ABG Glucose 209 H Oxyhemoglobin Carboxyhemoglobin Sodium Potassium Chloride Carbon Dioxide BUN Creatinine Glucose POC Glucose 155 H 186 H Lactic Acid Calcium Magnesium Ferritin Total Bilirubin Direct Bilirubin AST ALT Alkaline Phosphatase Lactate Dehydrogenase C-Reactive Protein Total Protein Albumin Triglycerides Lipase Arterial Blood Glucose 209 H Arterial Blood Ionized Calcium Urine WBC (Auto) Coronavirus (PCR) SARS-CoV-2 IgG Ab Crossmatch 05/28/20 05/28/20 05/29/20 12:45 17:39 00:37 WBC RBC Hgb Hct MCV MCH MCHC RDW Lymph % (Auto) [place] % (Auto) Lymph # (Auto) [place] # (Auto) Baso # (Auto) Seg Neutrophils % Seg Neuts % (Manual) Lymphocytes % (Manual) Nucleated RBC % Seg Neutrophils # Seg Neutrophils # Man Lymphocytes # (Manual) Monocytes # (Manual) Eosinophils # (Manual) PT INR APTT D-Dimer Heparin Anti-Xa Level ABG pH POC ABG pCO2 POC ABG pO2 ABG pO2 ABG HCO3 ABG O2 Saturation ABG Base Excess ABG Hemoglobin ABG Oxyhemoglobin ABG Sodium ABG Potassium ABG Chloride ABG Glucose Oxyhemoglobin Carboxyhemoglobin Sodium Potassium Chloride Carbon Dioxide BUN Creatinine Glucose POC Glucose 143 H 164 H 221 H Lactic Acid Calcium Magnesium Ferritin Total Bilirubin Direct Bilirubin AST ALT Alkaline Phosphatase Lactate Dehydrogenase C-Reactive Protein Total Protein Albumin Triglycerides Lipase Arterial Blood Glucose Arterial Blood Ionized Calcium Urine WBC (Auto) Coronavirus (PCR) SARS-CoV-2 IgG Ab Crossmatch 05/29/20 05/29/20 05/29/20 04:15 05:33 12:34 WBC RBC Hgb Hct MCV MCH MCHC RDW Lymph % (Auto) [place] % (Auto) Lymph # (Auto) [place] # (Auto) Baso # (Auto) Seg Neutrophils % Seg Neuts % (Manual) Lymphocytes % (Manual) Nucleated RBC % Seg Neutrophils # Seg Neutrophils # Man Lymphocytes # (Manual) Monocytes # (Manual) Eosinophils # (Manual) PT INR APTT D-Dimer Heparin Anti-Xa Level ABG pH 7.463 H POC ABG pCO2 56.3 H POC ABG pO2 81.2 L ABG pO2 ABG HCO3 ABG O2 Saturation ABG Base Excess ABG Hemoglobin ABG Oxyhemoglobin ABG Sodium ABG Potassium ABG Chloride 96.0 L ABG Glucose 194 H Oxyhemoglobin Carboxyhemoglobin Sodium Potassium Chloride Carbon Dioxide BUN Creatinine Glucose POC Glucose 133 H 221 H Lactic Acid Calcium Magnesium Ferritin Total Bilirubin Direct Bilirubin AST ALT Alkaline Phosphatase Lactate Dehydrogenase C-Reactive Protein Total Protein Albumin Triglycerides Lipase Arterial Blood Glucose 194 H Arterial Blood Ionized Calcium 4.5 L Urine WBC (Auto) Coronavirus (PCR) SARS-CoV-2 IgG Ab Crossmatch 05/29/20 05/30/20 05/30/20 18:07 00:12 05:38 WBC RBC Hgb Hct MCV MCH MCHC RDW Lymph % (Auto) [place] % (Auto) Lymph # (Auto) [place] # (Auto) Baso # (Auto) Seg Neutrophils % Seg Neuts % (Manual) Lymphocytes % (Manual) Nucleated RBC % Seg Neutrophils # Seg Neutrophils # Man Lymphocytes # (Manual) Monocytes # (Manual) Eosinophils # (Manual) PT INR APTT D-Dimer Heparin Anti-Xa Level ABG pH POC ABG pCO2 POC ABG pO2 ABG pO2 ABG HCO3 ABG O2 Saturation ABG Base Excess ABG Hemoglobin ABG Oxyhemoglobin ABG Sodium ABG Potassium ABG Chloride ABG Glucose Oxyhemoglobin Carboxyhemoglobin Sodium Potassium Chloride Carbon Dioxide BUN Creatinine Glucose POC Glucose 162 H 190 H 208 H Lactic Acid Calcium Magnesium Ferritin Total Bilirubin Direct Bilirubin AST ALT Alkaline Phosphatase Lactate Dehydrogenase C-Reactive Protein Total Protein Albumin Triglycerides Lipase Arterial Blood Glucose Arterial Blood Ionized Calcium Urine WBC (Auto) Coronavirus (PCR) SARS-CoV-2 IgG Ab Crossmatch 05/30/20 05/30/20 05/30/20 09:30 11:35 11:54 WBC 12.4 H RBC 3.48 L Hgb 11.3 L Hct 34.6 L MCV 99 H MCH 33 H MCHC RDW Lymph % (Auto) [place] % (Auto) Lymph # (Auto) [place] # (Auto) Baso # (Auto) Seg Neutrophils % Seg Neuts % (Manual) Lymphocytes % (Manual) Nucleated RBC % Seg Neutrophils # Seg Neutrophils # Man Lymphocytes # (Manual) Monocytes # (Manual) Eosinophils # (Manual) PT INR APTT D-Dimer Heparin Anti-Xa Level ABG pH 7.455 H POC ABG pCO2 57.5 H POC ABG pO2 81.5 L ABG pO2 ABG HCO3 ABG O2 Saturation ABG Base Excess ABG Hemoglobin ABG Oxyhemoglobin ABG Sodium ABG Potassium ABG Chloride 96.0 L ABG Glucose 204 H Oxyhemoglobin Carboxyhemoglobin Sodium Potassium Chloride Carbon Dioxide BUN Creatinine Glucose POC Glucose 183 H Lactic Acid Calcium Magnesium Ferritin Total Bilirubin Direct Bilirubin AST ALT Alkaline Phosphatase Lactate Dehydrogenase C-Reactive Protein Total Protein Albumin Triglycerides Lipase Arterial Blood Glucose 204 H Arterial Blood Ionized Calcium Urine WBC (Auto) Coronavirus (PCR) SARS-CoV-2 IgG Ab Crossmatch 05/30/20 05/31/20 05/31/20 18:01 00:10 03:22 WBC RBC Hgb Hct MCV MCH MCHC RDW Lymph % (Auto) [place] % (Auto) Lymph # (Auto) [place] # (Auto) Baso # (Auto) Seg Neutrophils % Seg Neuts % (Manual) Lymphocytes % (Manual) Nucleated RBC % Seg Neutrophils # Seg Neutrophils # Man Lymphocytes # (Manual) Monocytes # (Manual) Eosinophils # (Manual) PT INR APTT D-Dimer Heparin Anti-Xa Level ABG pH POC ABG pCO2 60.4 H POC ABG pO2 71.5 L ABG pO2 ABG HCO3 ABG O2 Saturation ABG Base Excess ABG Hemoglobin ABG Oxyhemoglobin ABG Sodium ABG Potassium ABG Chloride 96.0 L ABG Glucose 169 H Oxyhemoglobin Carboxyhemoglobin Sodium Potassium Chloride Carbon Dioxide BUN Creatinine Glucose POC Glucose 184 H 135 H Lactic Acid Calcium Magnesium Ferritin Total Bilirubin Direct Bilirubin AST ALT Alkaline Phosphatase Lactate Dehydrogenase C-Reactive Protein Total Protein Albumin Triglycerides Lipase Arterial Blood Glucose 169 H Arterial Blood Ionized Calcium 4.5 L Urine WBC (Auto) Coronavirus (PCR) SARS-CoV-2 IgG Ab Crossmatch 05/31/20 05/31/20 05/31/20 05:24 11:18 14:41 WBC RBC Hgb Hct MCV MCH MCHC RDW Lymph % (Auto) [place] % (Auto) Lymph # (Auto) [place] # (Auto) Baso # (Auto) Seg Neutrophils % Seg Neuts % (Manual) Lymphocytes % (Manual) Nucleated RBC % Seg Neutrophils # Seg Neutrophils # Man Lymphocytes # (Manual) Monocytes # (Manual) Eosinophils # (Manual) PT INR APTT D-Dimer Heparin Anti-Xa Level ABG pH POC ABG pCO2 POC ABG pO2 ABG pO2 ABG HCO3 ABG O2 Saturation ABG Base Excess ABG Hemoglobin ABG Oxyhemoglobin ABG Sodium ABG Potassium ABG Chloride ABG Glucose Oxyhemoglobin Carboxyhemoglobin Sodium Potassium Chloride 96.8 L Carbon Dioxide 37 H BUN 31 H Creatinine 0.6 L Glucose 213 H POC Glucose 164 H 208 H Lactic Acid Calcium Magnesium Ferritin Total Bilirubin Direct Bilirubin AST ALT Alkaline Phosphatase Lactate Dehydrogenase C-Reactive Protein Total Protein Albumin Triglycerides Lipase Arterial Blood Glucose Arterial Blood Ionized Calcium Urine WBC (Auto) Coronavirus (PCR) SARS-CoV-2 IgG Ab Crossmatch 05/31/20 05/31/20 06/01/20 17:37 23:47 03:48 WBC RBC Hgb Hct MCV MCH MCHC RDW Lymph % (Auto) [place] % (Auto) Lymph # (Auto) [place] # (Auto) Baso # (Auto) Seg Neutrophils % Seg Neuts % (Manual) Lymphocytes % (Manual) Nucleated RBC % Seg Neutrophils # Seg Neutrophils # Man Lymphocytes # (Manual) Monocytes # (Manual) Eosinophils # (Manual) PT INR APTT D-Dimer Heparin Anti-Xa Level ABG pH POC ABG pCO2 59.7 H POC ABG pO2 73.9 L ABG pO2 ABG HCO3 ABG O2 Saturation ABG Base Excess ABG Hemoglobin ABG Oxyhemoglobin ABG Sodium ABG Potassium ABG Chloride 95.0 L ABG Glucose 256 H Oxyhemoglobin Carboxyhemoglobin Sodium Potassium Chloride Carbon Dioxide BUN Creatinine Glucose POC Glucose 168 H 178 H Lactic Acid Calcium Magnesium Ferritin Total Bilirubin Direct Bilirubin AST ALT Alkaline Phosphatase Lactate Dehydrogenase C-Reactive Protein Total Protein Albumin Triglycerides Lipase Arterial Blood Glucose 256 H Arterial Blood Ionized Calcium Urine WBC (Auto) Coronavirus (PCR) SARS-CoV-2 IgG Ab Crossmatch 06/01/20 06/01/20 06/01/20 05:01 07:47 07:47 WBC 14.4 H RBC 3.46 L Hgb 11.1 L Hct 34.3 L MCV 99 H MCH MCHC RDW Lymph % (Auto) [place] % (Auto) Lymph # (Auto) [place] # (Auto) Baso # (Auto) Seg Neutrophils % Seg Neuts % (Manual) 86.0 H Lymphocytes % (Manual) 9.0 L Nucleated RBC % Seg Neutrophils # Seg Neutrophils # Man 12.4 H Lymphocytes # (Manual) Monocytes # (Manual) Eosinophils # (Manual) PT INR APTT D-Dimer Heparin Anti-Xa Level ABG pH POC ABG pCO2 POC ABG pO2 ABG pO2 ABG HCO3 ABG O2 Saturation ABG Base Excess ABG Hemoglobin ABG Oxyhemoglobin ABG Sodium ABG Potassium ABG Chloride ABG Glucose Oxyhemoglobin Carboxyhemoglobin Sodium Potassium Chloride Carbon Dioxide BUN Creatinine Glucose POC Glucose 197 H Lactic Acid Calcium Magnesium Ferritin Total Bilirubin Direct Bilirubin AST ALT Alkaline Phosphatase Lactate Dehydrogenase C-Reactive Protein Total Protein Albumin Triglycerides 244 H Lipase Arterial Blood Glucose Arterial Blood Ionized Calcium Urine WBC (Auto) Coronavirus (PCR) SARS-CoV-2 IgG Ab Crossmatch 06/01/20 06/01/20 06/01/20 07:47 11:46 18:15 WBC RBC Hgb Hct MCV MCH MCHC RDW Lymph % (Auto) [place] % (Auto) Lymph # (Auto) [place] # (Auto) Baso # (Auto) Seg Neutrophils % Seg Neuts % (Manual) Lymphocytes % (Manual) Nucleated RBC % Seg Neutrophils # Seg Neutrophils # Man Lymphocytes # (Manual) Monocytes # (Manual) Eosinophils # (Manual) PT INR APTT D-Dimer Heparin Anti-Xa Level ABG pH POC ABG pCO2 POC ABG pO2 ABG pO2 ABG HCO3 ABG O2 Saturation ABG Base Excess ABG Hemoglobin ABG Oxyhemoglobin ABG Sodium ABG Potassium ABG Chloride ABG Glucose Oxyhemoglobin Carboxyhemoglobin Sodium Potassium Chloride 95.4 L Carbon Dioxide 35 H BUN 30 H Creatinine 0.5 L Glucose 214 H POC Glucose 181 H 221 H Lactic Acid Calcium Magnesium Ferritin Total Bilirubin Direct Bilirubin AST 54 H ALT 235 H Alkaline Phosphatase Lactate Dehydrogenase C-Reactive Protein Total Protein Albumin 2.9 L Triglycerides Lipase Arterial Blood Glucose Arterial Blood Ionized Calcium Urine WBC (Auto) Coronavirus (PCR) SARS-CoV-2 IgG Ab Crossmatch 06/01/20 06/02/20 06/02/20 23:12 04:00 05:31 WBC RBC Hgb Hct MCV MCH MCHC RDW Lymph % (Auto) [place] % (Auto) Lymph # (Auto) [place] # (Auto) Baso # (Auto) Seg Neutrophils % Seg Neuts % (Manual) Lymphocytes % (Manual) Nucleated RBC % Seg Neutrophils # Seg Neutrophils # Man Lymphocytes # (Manual) Monocytes # (Manual) Eosinophils # (Manual) PT INR APTT D-Dimer Heparin Anti-Xa Level ABG pH 7.465 H POC ABG pCO2 POC ABG pO2 ABG pO2 203.4 H ABG HCO3 41.2 H ABG O2 Saturation 99.3 H ABG Base Excess 15.1 H ABG Hemoglobin 11.5 L ABG Oxyhemoglobin ABG Sodium ABG Potassium ABG Chloride ABG Glucose Oxyhemoglobin Carboxyhemoglobin Sodium Potassium Chloride Carbon Dioxide BUN Creatinine Glucose POC Glucose 197 H 184 H Lactic Acid Calcium Magnesium Ferritin Total Bilirubin Direct Bilirubin AST ALT Alkaline Phosphatase Lactate Dehydrogenase C-Reactive Protein Total Protein Albumin Triglycerides Lipase Arterial Blood Glucose Arterial Blood Ionized Calcium Urine WBC (Auto) Coronavirus (PCR) SARS-CoV-2 IgG Ab Crossmatch 06/02/20 06/02/20 06/02/20 11:49 18:06 23:00 WBC RBC Hgb Hct MCV MCH MCHC RDW Lymph % (Auto) [place] % (Auto) Lymph # (Auto) [place] # (Auto) Baso # (Auto) Seg Neutrophils % Seg Neuts % (Manual) Lymphocytes % (Manual) Nucleated RBC % Seg Neutrophils # Seg Neutrophils # Man Lymphocytes # (Manual) Monocytes # (Manual) Eosinophils # (Manual) PT INR APTT D-Dimer Heparin Anti-Xa Level ABG pH POC ABG pCO2 POC ABG pO2 ABG pO2 ABG HCO3 ABG O2 Saturation ABG Base Excess ABG Hemoglobin ABG Oxyhemoglobin ABG Sodium ABG Potassium ABG Chloride ABG Glucose Oxyhemoglobin Carboxyhemoglobin Sodium Potassium Chloride Carbon Dioxide BUN Creatinine Glucose POC Glucose 195 H 177 H 228 H Lactic Acid Calcium Magnesium Ferritin Total Bilirubin Direct Bilirubin AST ALT Alkaline Phosphatase Lactate Dehydrogenase C-Reactive Protein Total Protein Albumin Triglycerides Lipase Arterial Blood Glucose Arterial Blood Ionized Calcium Urine WBC (Auto) Coronavirus (PCR) SARS-CoV-2 IgG Ab Crossmatch 06/03/20 06/03/20 06/03/20 03:58 05:19 12:21 WBC RBC Hgb Hct MCV MCH MCHC RDW Lymph % (Auto) [place] % (Auto) Lymph # (Auto) [place] # (Auto) Baso # (Auto) Seg Neutrophils % Seg Neuts % (Manual) Lymphocytes % (Manual) Nucleated RBC % Seg Neutrophils # Seg Neutrophils # Man Lymphocytes # (Manual) Monocytes # (Manual) Eosinophils # (Manual) PT INR APTT D-Dimer Heparin Anti-Xa Level ABG pH POC ABG pCO2 POC ABG pO2 ABG pO2 171.0 H ABG HCO3 42.8 H ABG O2 Saturation ABG Base Excess 15.6 H ABG Hemoglobin 12.3 L ABG Oxyhemoglobin ABG Sodium ABG Potassium ABG Chloride ABG Glucose Oxyhemoglobin Carboxyhemoglobin Sodium Potassium Chloride Carbon Dioxide BUN Creatinine Glucose POC Glucose 122 H 207 H Lactic Acid Calcium Magnesium Ferritin Total Bilirubin Direct Bilirubin AST ALT Alkaline Phosphatase Lactate Dehydrogenase C-Reactive Protein Total Protein Albumin Triglycerides Lipase Arterial Blood Glucose Arterial Blood Ionized Calcium Urine WBC (Auto) Coronavirus (PCR) SARS-CoV-2 IgG Ab Crossmatch 1106/03/20 06/04/20 17:27 23:50 03:55 WBC RBC Hgb Hct MCV MCH MCHC RDW Lymph % (Auto) [place] % (Auto) Lymph # (Auto) [place] # (Auto) Baso # (Auto) Seg Neutrophils % Seg Neuts % (Manual) Lymphocytes % (Manual) Nucleated RBC % Seg Neutrophils # Seg Neutrophils # Man Lymphocytes # (Manual) Monocytes # (Manual) Eosinophils # (Manual) PT INR APTT D-Dimer Heparin Anti-Xa Level ABG pH POC ABG pCO2 POC ABG pO2 ABG pO2 117.2 H ABG HCO3 42.4 H ABG O2 Saturation ABG Base Excess 15.3 H ABG Hemoglobin 10.5 L ABG Oxyhemoglobin ABG Sodium ABG Potassium ABG Chloride ABG Glucose Oxyhemoglobin Carboxyhemoglobin Sodium Potassium Chloride Carbon Dioxide BUN Creatinine Glucose POC Glucose 157 H 214 H Lactic Acid Calcium Magnesium Ferritin Total Bilirubin Direct Bilirubin AST ALT Alkaline Phosphatase Lactate Dehydrogenase C-Reactive Protein Total Protein Albumin Triglycerides Lipase Arterial Blood Glucose Arterial Blood Ionized Calcium Urine WBC (Auto) Coronavirus (PCR) SARS-CoV-2 IgG Ab Crossmatch 06/04/20 06/04/20 06/04/20 05:49 11:41 17:30 WBC RBC Hgb Hct MCV MCH MCHC RDW Lymph % (Auto) [place] % (Auto) Lymph # (Auto) [place] # (Auto) Baso # (Auto) Seg Neutrophils % Seg Neuts % (Manual) Lymphocytes % (Manual) Nucleated RBC % Seg Neutrophils # Seg Neutrophils # Man Lymphocytes # (Manual) Monocytes # (Manual) Eosinophils # (Manual) PT INR APTT D-Dimer Heparin Anti-Xa Level ABG pH POC ABG pCO2 POC ABG pO2 ABG pO2 ABG HCO3 ABG O2 Saturation ABG Base Excess ABG Hemoglobin ABG Oxyhemoglobin ABG Sodium ABG Potassium ABG Chloride ABG Glucose Oxyhemoglobin Carboxyhemoglobin Sodium Potassium Chloride Carbon Dioxide BUN Creatinine Glucose POC Glucose 149 H 233 H 156 H Lactic Acid Calcium Magnesium Ferritin Total Bilirubin Direct Bilirubin AST ALT Alkaline Phosphatase Lactate Dehydrogenase C-Reactive Protein Total Protein Albumin Triglycerides Lipase Arterial Blood Glucose Arterial Blood Ionized Calcium Urine WBC (Auto) Coronavirus (PCR) SARS-CoV-2 IgG Ab Crossmatch 06/04/20 06/04/20 06/04/20 19:01 20:53 23:41 WBC RBC 3.18 L Hgb 10.8 L Hct 31.8 L MCV 100 H MCH 34 H MCHC RDW Lymph % (Auto) [place] % (Auto) Lymph # (Auto) [place] # (Auto) Baso # (Auto) Seg Neutrophils % Seg Neuts % (Manual) 86.0 H Lymphocytes % (Manual) 10.0 L Nucleated RBC % 1.0 H Seg Neutrophils # Seg Neutrophils # Man 8.5 H Lymphocytes # (Manual) 1.0 L Monocytes # (Manual) Eosinophils # (Manual) PT INR APTT D-Dimer Heparin Anti-Xa Level ABG pH POC ABG pCO2 POC ABG pO2 ABG pO2 ABG HCO3 ABG O2 Saturation ABG Base Excess ABG Hemoglobin ABG Oxyhemoglobin ABG Sodium ABG Potassium ABG Chloride ABG Glucose Oxyhemoglobin Carboxyhemoglobin Sodium Potassium 3.4 L D Chloride 96.5 L Carbon Dioxide 41 H* BUN 27 H Creatinine 0.5 L Glucose 173 H POC Glucose 217 H Lactic Acid Calcium Magnesium Ferritin Total Bilirubin Direct Bilirubin AST ALT Alkaline Phosphatase Lactate Dehydrogenase C-Reactive Protein Total Protein Albumin Triglycerides Lipase Arterial Blood Glucose Arterial Blood Ionized Calcium Urine WBC (Auto) Coronavirus (PCR) SARS-CoV-2 IgG Ab Crossmatch 06/05/20 06/05/20 06/05/20 06:05 11:54 12:35 WBC RBC Hgb Hct MCV MCH MCHC RDW Lymph % (Auto) [place] % (Auto) Lymph # (Auto) [place] # (Auto) Baso # (Auto) Seg Neutrophils % Seg Neuts % (Manual) Lymphocytes % (Manual) Nucleated RBC % Seg Neutrophils # Seg Neutrophils # Man Lymphocytes # (Manual) Monocytes # (Manual) Eosinophils # (Manual) PT INR APTT D-Dimer Heparin Anti-Xa Level ABG pH POC ABG pCO2 POC ABG pO2 ABG pO2 127.9 H ABG HCO3 41.1 H ABG O2 Saturation ABG Base Excess 13.0 H ABG Hemoglobin 13.4 L ABG Oxyhemoglobin ABG Sodium ABG Potassium ABG Chloride ABG Glucose Oxyhemoglobin Carboxyhemoglobin Sodium Potassium Chloride Carbon Dioxide BUN Creatinine Glucose POC Glucose 137 H 211 H Lactic Acid Calcium Magnesium Ferritin Total Bilirubin Direct Bilirubin AST ALT Alkaline Phosphatase Lactate Dehydrogenase C-Reactive Protein Total Protein Albumin Triglycerides Lipase Arterial Blood Glucose Arterial Blood Ionized Calcium Urine WBC (Auto) Coronavirus (PCR) SARS-CoV-2 IgG Ab Crossmatch 06/05/20 06/05/20 06/06/20 17:03 23:49 04:42 WBC RBC Hgb Hct MCV MCH MCHC RDW Lymph % (Auto) [place] % (Auto) Lymph # (Auto) [place] # (Auto) Baso # (Auto) Seg Neutrophils % Seg Neuts % (Manual) Lymphocytes % (Manual) Nucleated RBC % Seg Neutrophils # Seg Neutrophils # Man Lymphocytes # (Manual) Monocytes # (Manual) Eosinophils # (Manual) PT INR APTT D-Dimer Heparin Anti-Xa Level ABG pH POC ABG pCO2 56.1 H POC ABG pO2 52.5 L ABG pO2 ABG HCO3 ABG O2 Saturation ABG Base Excess ABG Hemoglobin 11.7 L ABG Oxyhemoglobin ABG Sodium ABG Potassium 3.3 L ABG Chloride 95.0 L ABG Glucose 156 H Oxyhemoglobin Carboxyhemoglobin Sodium Potassium Chloride Carbon Dioxide BUN Creatinine Glucose POC Glucose 159 H 194 H Lactic Acid Calcium Magnesium Ferritin Total Bilirubin Direct Bilirubin AST ALT Alkaline Phosphatase Lactate Dehydrogenase C-Reactive Protein Total Protein Albumin Triglycerides Lipase Arterial Blood Glucose 156 H Arterial Blood Ionized Calcium Urine WBC (Auto) Coronavirus (PCR) SARS-CoV-2 IgG Ab Crossmatch 06/06/20 06/06/20 06/06/20 05:57 12:06 17:38 WBC RBC Hgb Hct MCV MCH MCHC RDW Lymph % (Auto) [place] % (Auto) Lymph # (Auto) [place] # (Auto) Baso # (Auto) Seg Neutrophils % Seg Neuts % (Manual) Lymphocytes % (Manual) Nucleated RBC % Seg Neutrophils # Seg Neutrophils # Man Lymphocytes # (Manual) Monocytes # (Manual) Eosinophils # (Manual) PT INR APTT D-Dimer Heparin Anti-Xa Level ABG pH POC ABG pCO2 POC ABG pO2 ABG pO2 ABG HCO3 ABG O2 Saturation ABG Base Excess ABG Hemoglobin ABG Oxyhemoglobin ABG Sodium ABG Potassium ABG Chloride ABG Glucose Oxyhemoglobin Carboxyhemoglobin Sodium Potassium Chloride Carbon Dioxide BUN Creatinine Glucose POC Glucose 144 H 230 H 162 H Lactic Acid Calcium Magnesium Ferritin Total Bilirubin Direct Bilirubin AST ALT Alkaline Phosphatase Lactate Dehydrogenase C-Reactive Protein Total Protein Albumin Triglycerides Lipase Arterial Blood Glucose Arterial Blood Ionized Calcium Urine WBC (Auto) Coronavirus (PCR) SARS-CoV-2 IgG Ab Crossmatch 06/06/20 06/07/20 06/07/20 23:50 04:34 06:03 WBC RBC Hgb Hct MCV MCH MCHC RDW Lymph % (Auto) [place] % (Auto) Lymph # (Auto) [place] # (Auto) Baso # (Auto) Seg Neutrophils % Seg Neuts % (Manual) Lymphocytes % (Manual) Nucleated RBC % Seg Neutrophils # Seg Neutrophils # Man Lymphocytes # (Manual) Monocytes # (Manual) Eosinophils # (Manual) PT INR APTT D-Dimer Heparin Anti-Xa Level ABG pH 7.511 H POC ABG pCO2 53.5 H POC ABG pO2 114.5 H ABG pO2 ABG HCO3 ABG O2 Saturation ABG Base Excess ABG Hemoglobin 9.4 L ABG Oxyhemoglobin ABG Sodium 134.5 L ABG Potassium ABG Chloride 94.0 L ABG Glucose 186 H Oxyhemoglobin Carboxyhemoglobin Sodium Potassium Chloride Carbon Dioxide BUN Creatinine Glucose POC Glucose 181 H 155 H Lactic Acid Calcium Magnesium Ferritin Total Bilirubin Direct Bilirubin AST ALT Alkaline Phosphatase Lactate Dehydrogenase C-Reactive Protein Total Protein Albumin Triglycerides Lipase Arterial Blood Glucose 186 H Arterial Blood Ionized Calcium 4.5 L Urine WBC (Auto) Coronavirus (PCR) SARS-CoV-2 IgG Ab Crossmatch 06/07/20 06/07/20 06/07/20 13:41 14:58 14:58 WBC RBC 2.72 L Hgb 9.3 L Hct 27.2 L MCV 100 H MCH 34 H MCHC RDW Lymph % (Auto) [place] % (Auto) Lymph # (Auto) [place] # (Auto) Baso # (Auto) Seg Neutrophils % Seg Neuts % (Manual) Lymphocytes % (Manual) Nucleated RBC % Seg Neutrophils # Seg Neutrophils # Man Lymphocytes # (Manual) Monocytes # (Manual) Eosinophils # (Manual) PT INR APTT D-Dimer Heparin Anti-Xa Level ABG pH POC ABG pCO2 POC ABG pO2 ABG pO2 ABG HCO3 ABG O2 Saturation ABG Base Excess ABG Hemoglobin ABG Oxyhemoglobin ABG Sodium ABG Potassium ABG Chloride ABG Glucose Oxyhemoglobin Carboxyhemoglobin Sodium Potassium Chloride 93.5 L Carbon Dioxide 39 H BUN 22 H Creatinine 0.4 L Glucose 188 H POC Glucose 201 H Lactic Acid Calcium Magnesium Ferritin Total Bilirubin Direct Bilirubin AST 61 H ALT 273 H Alkaline Phosphatase Lactate Dehydrogenase C-Reactive Protein Total Protein 5.9 L Albumin 2.7 L Triglycerides Lipase Arterial Blood Glucose Arterial Blood Ionized Calcium Urine WBC (Auto) Coronavirus (PCR) SARS-CoV-2 IgG Ab Crossmatch 06/07/20 06/08/20 06/08/20 23:18 05:31 12:07 WBC RBC Hgb Hct MCV MCH MCHC RDW Lymph % (Auto) [place] % (Auto) Lymph # (Auto) [place] # (Auto) Baso # (Auto) Seg Neutrophils % Seg Neuts % (Manual) Lymphocytes % (Manual) Nucleated RBC % Seg Neutrophils # Seg Neutrophils # Man Lymphocytes # (Manual) Monocytes # (Manual) Eosinophils # (Manual) PT INR APTT D-Dimer Heparin Anti-Xa Level ABG pH POC ABG pCO2 POC ABG pO2 ABG pO2 ABG HCO3 ABG O2 Saturation ABG Base Excess ABG Hemoglobin ABG Oxyhemoglobin ABG Sodium ABG Potassium ABG Chloride ABG Glucose Oxyhemoglobin Carboxyhemoglobin Sodium Potassium Chloride Carbon Dioxide BUN Creatinine Glucose POC Glucose 214 H 129 H 179 H Lactic Acid Calcium Magnesium Ferritin Total Bilirubin Direct Bilirubin AST ALT Alkaline Phosphatase Lactate Dehydrogenase C-Reactive Protein Total Protein Albumin Triglycerides Lipase Arterial Blood Glucose Arterial Blood Ionized Calcium Urine WBC (Auto) Coronavirus (PCR) SARS-CoV-2 IgG Ab Crossmatch 06/08/20 06/08/20 06/09/20 18:18 23:35 05:42 WBC RBC Hgb Hct MCV MCH MCHC RDW Lymph % (Auto) [place] % (Auto) Lymph # (Auto) [place] # (Auto) Baso # (Auto) Seg Neutrophils % Seg Neuts % (Manual) Lymphocytes % (Manual) Nucleated RBC % Seg Neutrophils # Seg Neutrophils # Man Lymphocytes # (Manual) Monocytes # (Manual) Eosinophils # (Manual) PT INR APTT D-Dimer Heparin Anti-Xa Level ABG pH POC ABG pCO2 POC ABG pO2 ABG pO2 ABG HCO3 ABG O2 Saturation ABG Base Excess ABG Hemoglobin ABG Oxyhemoglobin ABG Sodium ABG Potassium ABG Chloride ABG Glucose Oxyhemoglobin Carboxyhemoglobin Sodium Potassium Chloride Carbon Dioxide BUN Creatinine Glucose POC Glucose 172 H 177 H 137 H Lactic Acid Calcium Magnesium Ferritin Total Bilirubin Direct Bilirubin AST ALT Alkaline Phosphatase Lactate Dehydrogenase C-Reactive Protein Total Protein Albumin Triglycerides Lipase Arterial Blood Glucose Arterial Blood Ionized Calcium Urine WBC (Auto) Coronavirus (PCR) SARS-CoV-2 IgG Ab Crossmatch 06/09/20 06/09/20 06/09/20 06:20 07:55 07:55 WBC 12.4 H RBC 3.26 L Hgb 11.1 L Hct 33.4 L D MCV 102 H MCH 34 H MCHC RDW Lymph % (Auto) [place] % (Auto) Lymph # (Auto) [place] # (Auto) Baso # (Auto) Seg Neutrophils % Seg Neuts % (Manual) Lymphocytes % (Manual) Nucleated RBC % Seg Neutrophils # Seg Neutrophils # Man Lymphocytes # (Manual) Monocytes # (Manual) Eosinophils # (Manual) PT INR APTT D-Dimer Heparin Anti-Xa Level ABG pH 7.466 H POC ABG pCO2 50.7 H POC ABG pO2 53.0 L ABG pO2 ABG HCO3 ABG O2 Saturation ABG Base Excess ABG Hemoglobin ABG Oxyhemoglobin ABG Sodium ABG Potassium 2.9 L ABG Chloride 93.0 L ABG Glucose 138 H Oxyhemoglobin Carboxyhemoglobin Sodium Potassium 3.0 L Chloride 92.3 L Carbon Dioxide 37 H BUN 21 H Creatinine 0.6 L Glucose 120 H POC Glucose Lactic Acid Calcium Magnesium Ferritin Total Bilirubin Direct Bilirubin AST ALT Alkaline Phosphatase Lactate Dehydrogenase C-Reactive Protein Total Protein Albumin Triglycerides Lipase Arterial Blood Glucose 138 H Arterial Blood Ionized Calcium 4.5 L Urine WBC (Auto) Coronavirus (PCR) SARS-CoV-2 IgG Ab Crossmatch 06/09/20 06/09/20 06/10/20 11:22 18:32 04:46 WBC RBC Hgb Hct MCV MCH MCHC RDW Lymph % (Auto) [place] % (Auto) Lymph # (Auto) [place] # (Auto) Baso # (Auto) Seg Neutrophils % Seg Neuts % (Manual) Lymphocytes % (Manual) Nucleated RBC % Seg Neutrophils # Seg Neutrophils # Man Lymphocytes # (Manual) Monocytes # (Manual) Eosinophils # (Manual) PT INR APTT D-Dimer Heparin Anti-Xa Level ABG pH 7.501 H POC ABG pCO2 POC ABG pO2 126.5 H ABG pO2 ABG HCO3 ABG O2 Saturation ABG Base Excess ABG Hemoglobin 10.3 L ABG Oxyhemoglobin ABG Sodium ABG Potassium ABG Chloride ABG Glucose 220 H Oxyhemoglobin Carboxyhemoglobin Sodium Potassium Chloride Carbon Dioxide BUN Creatinine Glucose POC Glucose 117 H 121 H Lactic Acid Calcium Magnesium Ferritin Total Bilirubin Direct Bilirubin AST ALT Alkaline Phosphatase Lactate Dehydrogenase C-Reactive Protein Total Protein Albumin Triglycerides Lipase Arterial Blood Glucose 220 H Arterial Blood Ionized Calcium Urine WBC (Auto) Coronavirus (PCR) SARS-CoV-2 IgG Ab Crossmatch 06/10/20 06/10/20 06/10/20 05:30 09:38 12:03 WBC RBC Hgb Hct MCV MCH MCHC RDW Lymph % (Auto) [place] % (Auto) Lymph # (Auto) [place] # (Auto) Baso # (Auto) Seg Neutrophils % Seg Neuts % (Manual) Lymphocytes % (Manual) Nucleated RBC % Seg Neutrophils # Seg Neutrophils # Man Lymphocytes # (Manual) Monocytes # (Manual) Eosinophils # (Manual) PT INR APTT D-Dimer Heparin Anti-Xa Level ABG pH POC ABG pCO2 POC ABG pO2 ABG pO2 ABG HCO3 ABG O2 Saturation ABG Base Excess ABG Hemoglobin ABG Oxyhemoglobin ABG Sodium ABG Potassium ABG Chloride ABG Glucose Oxyhemoglobin Carboxyhemoglobin Sodium Potassium Chloride Carbon Dioxide BUN Creatinine Glucose POC Glucose 181 H 204 H Lactic Acid Calcium Magnesium Ferritin Total Bilirubin Direct Bilirubin AST ALT Alkaline Phosphatase Lactate Dehydrogenase C-Reactive Protein Total Protein Albumin Triglycerides 738 H Lipase Arterial Blood Glucose Arterial Blood Ionized Calcium Urine WBC (Auto) Coronavirus (PCR) SARS-CoV-2 IgG Ab Crossmatch 06/10/20 06/11/20 06/11/20 17:17 00:04 04:38 WBC RBC Hgb Hct MCV MCH MCHC RDW Lymph % (Auto) [place] % (Auto) Lymph # (Auto) [place] # (Auto) Baso # (Auto) Seg Neutrophils % Seg Neuts % (Manual) Lymphocytes % (Manual) Nucleated RBC % Seg Neutrophils # Seg Neutrophils # Man Lymphocytes # (Manual) Monocytes # (Manual) Eosinophils # (Manual) PT INR APTT D-Dimer Heparin Anti-Xa Level ABG pH 7.479 H POC ABG pCO2 POC ABG pO2 76.7 L ABG pO2 ABG HCO3 ABG O2 Saturation ABG Base Excess ABG Hemoglobin 9.8 L ABG Oxyhemoglobin ABG Sodium 135.8 L ABG Potassium ABG Chloride ABG Glucose 238 H Oxyhemoglobin Carboxyhemoglobin Sodium Potassium Chloride Carbon Dioxide BUN Creatinine Glucose POC Glucose 156 H 178 H Lactic Acid Calcium Magnesium Ferritin Total Bilirubin Direct Bilirubin AST ALT Alkaline Phosphatase Lactate Dehydrogenase C-Reactive Protein Total Protein Albumin Triglycerides Lipase Arterial Blood Glucose 238 H Arterial Blood Ionized Calcium Urine WBC (Auto) Coronavirus (PCR) SARS-CoV-2 IgG Ab Crossmatch 12/10/2606/11/20 06/11/20 05:21 06:52 11:50 WBC RBC Hgb Hct MCV MCH MCHC RDW Lymph % (Auto) [place] % (Auto) Lymph # (Auto) [place] # (Auto) Baso # (Auto) Seg Neutrophils % Seg Neuts % (Manual) Lymphocytes % (Manual) Nucleated RBC % Seg Neutrophils # Seg Neutrophils # Man Lymphocytes # (Manual) Monocytes # (Manual) Eosinophils # (Manual) PT INR APTT D-Dimer Heparin Anti-Xa Level ABG pH POC ABG pCO2 POC ABG pO2 ABG pO2 ABG HCO3 ABG O2 Saturation ABG Base Excess ABG Hemoglobin ABG Oxyhemoglobin ABG Sodium ABG Potassium ABG Chloride ABG Glucose Oxyhemoglobin Carboxyhemoglobin Sodium Potassium Chloride Carbon Dioxide BUN Creatinine Glucose POC Glucose 215 H 187 H Lactic Acid Calcium Magnesium Ferritin Total Bilirubin Direct Bilirubin AST ALT Alkaline Phosphatase Lactate Dehydrogenase C-Reactive Protein Total Protein Albumin Triglycerides 331 H Lipase Arterial Blood Glucose Arterial Blood Ionized Calcium Urine WBC (Auto) Coronavirus (PCR) SARS-CoV-2 IgG Ab Crossmatch 06/11/20 06/11/20 06/12/20 17:49 23:35 04:52 WBC RBC Hgb Hct MCV MCH MCHC RDW Lymph % (Auto) [place] % (Auto) Lymph # (Auto) [place] # (Auto) Baso # (Auto) Seg Neutrophils % Seg Neuts % (Manual) Lymphocytes % (Manual) Nucleated RBC % Seg Neutrophils # Seg Neutrophils # Man Lymphocytes # (Manual) Monocytes # (Manual) Eosinophils # (Manual) PT INR APTT D-Dimer Heparin Anti-Xa Level ABG pH 7.486 H POC ABG pCO2 POC ABG pO2 ABG pO2 ABG HCO3 ABG O2 Saturation ABG Base Excess ABG Hemoglobin 9.4 L ABG Oxyhemoglobin ABG Sodium ABG Potassium 3.2 L ABG Chloride ABG Glucose 209 H Oxyhemoglobin Carboxyhemoglobin Sodium Potassium Chloride Carbon Dioxide BUN Creatinine Glucose POC Glucose 211 H 200 H Lactic Acid Calcium Magnesium Ferritin Total Bilirubin Direct Bilirubin AST ALT Alkaline Phosphatase Lactate Dehydrogenase C-Reactive Protein Total Protein Albumin Triglycerides Lipase Arterial Blood Glucose 209 H Arterial Blood Ionized Calcium Urine WBC (Auto) Coronavirus (PCR) SARS-CoV-2 IgG Ab Crossmatch 06/12/20 06/12/20 06/12/20 05:13 11:47 18:33 WBC RBC Hgb Hct MCV MCH MCHC RDW Lymph % (Auto) [place] % (Auto) Lymph # (Auto) [place] # (Auto) Baso # (Auto) Seg Neutrophils % Seg Neuts % (Manual) Lymphocytes % (Manual) Nucleated RBC % Seg Neutrophils # Seg Neutrophils # Man Lymphocytes # (Manual) Monocytes # (Manual) Eosinophils # (Manual) PT INR APTT D-Dimer Heparin Anti-Xa Level ABG pH POC ABG pCO2 POC ABG pO2 ABG pO2 ABG HCO3 ABG O2 Saturation ABG Base Excess ABG Hemoglobin ABG Oxyhemoglobin ABG Sodium ABG Potassium ABG Chloride ABG Glucose Oxyhemoglobin Carboxyhemoglobin Sodium Potassium Chloride Carbon Dioxide BUN Creatinine Glucose POC Glucose 174 H 214 H 194 H Lactic Acid Calcium Magnesium Ferritin Total Bilirubin Direct Bilirubin AST ALT Alkaline Phosphatase Lactate Dehydrogenase C-Reactive Protein Total Protein Albumin Triglycerides Lipase Arterial Blood Glucose Arterial Blood Ionized Calcium Urine WBC (Auto) Coronavirus (PCR) SARS-CoV-2 IgG Ab Crossmatch 06/12/20 06/13/20 06/13/20 23:49 05:41 12:30 WBC RBC Hgb Hct MCV MCH MCHC RDW Lymph % (Auto) [place] % (Auto) Lymph # (Auto) [place] # (Auto) Baso # (Auto) Seg Neutrophils % Seg Neuts % (Manual) Lymphocytes % (Manual) Nucleated RBC % Seg Neutrophils # Seg Neutrophils # Man Lymphocytes # (Manual) Monocytes # (Manual) Eosinophils # (Manual) PT INR APTT D-Dimer Heparin Anti-Xa Level ABG pH POC ABG pCO2 POC ABG pO2 ABG pO2 ABG HCO3 ABG O2 Saturation ABG Base Excess ABG Hemoglobin ABG Oxyhemoglobin ABG Sodium ABG Potassium ABG Chloride ABG Glucose Oxyhemoglobin Carboxyhemoglobin Sodium Potassium Chloride Carbon Dioxide BUN Creatinine Glucose POC Glucose 160 H 150 H 181 H Lactic Acid Calcium Magnesium Ferritin Total Bilirubin Direct Bilirubin AST ALT Alkaline Phosphatase Lactate Dehydrogenase C-Reactive Protein Total Protein Albumin Triglycerides Lipase Arterial Blood Glucose Arterial Blood Ionized Calcium Urine WBC (Auto) Coronavirus (PCR) SARS-CoV-2 IgG Ab Crossmatch 06/13/20 06/13/20 06/13/20 14:14 17:48 23:27 WBC 12.8 H RBC 2.33 L Hgb 8.0 L Hct 23.3 L MCV 100 H MCH 34 H MCHC RDW 15.7 H Lymph % (Auto) [place] % (Auto) Lymph # (Auto) [place] # (Auto) Baso # (Auto) Seg Neutrophils % Seg Neuts % (Manual) 85.0 H Lymphocytes % (Manual) 10.0 L Nucleated RBC % Seg Neutrophils # Seg Neutrophils # Man 10.9 H Lymphocytes # (Manual) Monocytes # (Manual) Eosinophils # (Manual) PT INR APTT D-Dimer Heparin Anti-Xa Level ABG pH POC ABG pCO2 POC ABG pO2 ABG pO2 ABG HCO3 ABG O2 Saturation ABG Base Excess ABG Hemoglobin ABG Oxyhemoglobin ABG Sodium ABG Potassium ABG Chloride ABG Glucose Oxyhemoglobin Carboxyhemoglobin Sodium Potassium Chloride Carbon Dioxide BUN Creatinine Glucose POC Glucose 173 H 154 H Lactic Acid Calcium Magnesium Ferritin Total Bilirubin Direct Bilirubin AST ALT Alkaline Phosphatase Lactate Dehydrogenase C-Reactive Protein Total Protein Albumin Triglycerides Lipase Arterial Blood Glucose Arterial Blood Ionized Calcium Urine WBC (Auto) Coronavirus (PCR) SARS-CoV-2 IgG Ab Crossmatch 06/14/20 06/14/20 06/14/20 03:58 05:21 07:15 WBC 26.2 H RBC 2.97 L Hgb 9.7 L Hct 29.9 L D MCV 101 H MCH 33 H MCHC RDW 15.3 H Lymph % (Auto) [place] % (Auto) Lymph # (Auto) [place] # (Auto) Baso # (Auto) Seg Neutrophils % Seg Neuts % (Manual) 79.0 H Lymphocytes % (Manual) 5.0 L Nucleated RBC % 3.0 H Seg Neutrophils # Seg Neutrophils # Man 20.7 H Lymphocytes # (Manual) Monocytes # (Manual) 1.3 H Eosinophils # (Manual) PT INR APTT D-Dimer Heparin Anti-Xa Level ABG pH POC ABG pCO2 51.5 H POC ABG pO2 70.0 L ABG pO2 ABG HCO3 ABG O2 Saturation ABG Base Excess ABG Hemoglobin 10.1 L ABG Oxyhemoglobin ABG Sodium 131.5 L ABG Potassium 3.1 L ABG Chloride 93.0 L ABG Glucose 188 H Oxyhemoglobin Carboxyhemoglobin Sodium Potassium Chloride Carbon Dioxide BUN Creatinine Glucose POC Glucose 147 H Lactic Acid Calcium Magnesium Ferritin Total Bilirubin Direct Bilirubin AST ALT Alkaline Phosphatase Lactate Dehydrogenase C-Reactive Protein Total Protein Albumin Triglycerides Lipase Arterial Blood Glucose 188 H Arterial Blood Ionized Calcium Urine WBC (Auto) Coronavirus (PCR) SARS-CoV-2 IgG Ab Crossmatch 06/14/20 06/14/20 06/14/20 07:15 11:30 11:50 WBC RBC Hgb Hct MCV MCH MCHC RDW Lymph % (Auto) [place] % (Auto) Lymph # (Auto) [place] # (Auto) Baso # (Auto) Seg Neutrophils % Seg Neuts % (Manual) Lymphocytes % (Manual) Nucleated RBC % Seg Neutrophils # Seg Neutrophils # Man Lymphocytes # (Manual) Monocytes # (Manual) Eosinophils # (Manual) PT INR APTT D-Dimer Heparin Anti-Xa Level ABG pH POC ABG pCO2 POC ABG pO2 ABG pO2 ABG HCO3 ABG O2 Saturation ABG Base Excess ABG Hemoglobin ABG Oxyhemoglobin ABG Sodium ABG Potassium ABG Chloride ABG Glucose Oxyhemoglobin Carboxyhemoglobin Sodium 135 L Potassium 3.5 L Chloride 90.4 L Carbon Dioxide 38 H BUN Creatinine 0.5 L Glucose 190 H POC Glucose 176 H Lactic Acid Calcium Magnesium Ferritin 1496.0 H Total Bilirubin Direct Bilirubin AST ALT 81 H Alkaline Phosphatase Lactate Dehydrogenase C-Reactive Protein Total Protein Albumin 2.9 L Triglycerides Lipase Arterial Blood Glucose Arterial Blood Ionized Calcium Urine WBC (Auto) Coronavirus (PCR) SARS-CoV-2 IgG Ab Crossmatch 06/14/20 06/15/20 06/15/20 23:31 04:00 05:00 WBC RBC Hgb Hct MCV MCH MCHC RDW Lymph % (Auto) [place] % (Auto) Lymph # (Auto) [place] # (Auto) Baso # (Auto) Seg Neutrophils % Seg Neuts % (Manual) Lymphocytes % (Manual) Nucleated RBC % Seg Neutrophils # Seg Neutrophils # Man Lymphocytes # (Manual) Monocytes # (Manual) Eosinophils # (Manual) PT INR APTT D-Dimer Heparin Anti-Xa Level ABG pH POC ABG pCO2 POC ABG pO2 ABG pO2 ABG HCO3 ABG O2 Saturation ABG Base Excess ABG Hemoglobin ABG Oxyhemoglobin ABG Sodium ABG Potassium ABG Chloride ABG Glucose Oxyhemoglobin Carboxyhemoglobin Sodium 133 L Potassium Chloride 91.1 L Carbon Dioxide 34 H BUN Creatinine 0.4 L Glucose 159 H POC Glucose 200 H Lactic Acid Calcium Magnesium Ferritin Total Bilirubin 2.00 H Direct Bilirubin AST 47 H ALT 77 H Alkaline Phosphatase Lactate Dehydrogenase C-Reactive Protein Total Protein Albumin 2.6 L Triglycerides 152 H Lipase Arterial Blood Glucose Arterial Blood Ionized Calcium Urine WBC (Auto) Coronavirus (PCR) SARS-CoV-2 IgG Ab Crossmatch 06/15/20 06/15/20 06/15/20 05:35 06:27 11:38 WBC RBC Hgb Hct MCV MCH MCHC RDW Lymph % (Auto) [place] % (Auto) Lymph # (Auto) [place] # (Auto) Baso # (Auto) Seg Neutrophils % Seg Neuts % (Manual) Lymphocytes % (Manual) Nucleated RBC % Seg Neutrophils # Seg Neutrophils # Man Lymphocytes # (Manual) Monocytes # (Manual) Eosinophils # (Manual) PT INR APTT D-Dimer Heparin Anti-Xa Level ABG pH POC ABG pCO2 61.0 H POC ABG pO2 67.9 L ABG pO2 ABG HCO3 ABG O2 Saturation ABG Base Excess ABG Hemoglobin 10.4 L ABG Oxyhemoglobin ABG Sodium 132.7 L ABG Potassium 3.3 L ABG Chloride 92.0 L ABG Glucose 158 H Oxyhemoglobin Carboxyhemoglobin Sodium Potassium Chloride Carbon Dioxide BUN Creatinine Glucose POC Glucose 148 H 197 H Lactic Acid Calcium Magnesium Ferritin Total Bilirubin Direct Bilirubin AST ALT Alkaline Phosphatase Lactate Dehydrogenase C-Reactive Protein Total Protein Albumin Triglycerides Lipase Arterial Blood Glucose 158 H Arterial Blood Ionized Calcium Urine WBC (Auto) Coronavirus (PCR) SARS-CoV-2 IgG Ab Crossmatch 06/15/20 06/15/20 06/16/20 17:29 Unknown 00:01 WBC 20.7 H RBC 2.57 L Hgb 8.9 L Hct 25.8 L MCV 101 H MCH 35 H MCHC 35 H RDW 16.0 H Lymph % (Auto) [place] % (Auto) Lymph # (Auto) [place] # (Auto) Baso # (Auto) Seg Neutrophils % Seg Neuts % (Manual) 83.0 H Lymphocytes % (Manual) 8.0 L Nucleated RBC % Seg Neutrophils # Seg Neutrophils # Man 17.2 H Lymphocytes # (Manual) Monocytes # (Manual) 1.2 H Eosinophils # (Manual) PT INR APTT D-Dimer Heparin Anti-Xa Level ABG pH POC ABG pCO2 POC ABG pO2 ABG pO2 ABG HCO3 ABG O2 Saturation ABG Base Excess ABG Hemoglobin ABG Oxyhemoglobin ABG Sodium ABG Potassium ABG Chloride ABG Glucose Oxyhemoglobin Carboxyhemoglobin Sodium Potassium Chloride Carbon Dioxide BUN Creatinine Glucose POC Glucose 231 H 257 H Lactic Acid Calcium Magnesium Ferritin Total Bilirubin Direct Bilirubin AST ALT Alkaline Phosphatase Lactate Dehydrogenase C-Reactive Protein Total Protein Albumin Triglycerides Lipase Arterial Blood Glucose Arterial Blood Ionized Calcium Urine WBC (Auto) Coronavirus (PCR) SARS-CoV-2 IgG Ab Crossmatch 06/16/20 06/16/20 06/16/20 04:00 04:00 05:22 WBC 13.8 H RBC 2.03 L Hgb 7.6 L Hct 20.7 L MCV 102 H MCH 37 H MCHC 37 H RDW 16.2 H Lymph % (Auto) 4.4 L [place] % (Auto) Lymph # (Auto) 0.6 L [place] # (Auto) Baso # (Auto) Seg Neutrophils % Seg Neuts % (Manual) Lymphocytes % (Manual) Nucleated RBC % Seg Neutrophils # 12.7 H Seg Neutrophils # Man Lymphocytes # (Manual) Monocytes # (Manual) Eosinophils # (Manual) PT INR APTT D-Dimer Heparin Anti-Xa Level ABG pH POC ABG pCO2 POC ABG pO2 ABG pO2 ABG HCO3 ABG O2 Saturation ABG Base Excess ABG Hemoglobin ABG Oxyhemoglobin ABG Sodium ABG Potassium ABG Chloride ABG Glucose Oxyhemoglobin Carboxyhemoglobin Sodium 130 L Potassium Chloride 88.9 L Carbon Dioxide 36 H BUN Creatinine 0.3 L Glucose 276 H POC Glucose 250 H Lactic Acid Calcium Magnesium Ferritin Total Bilirubin Direct Bilirubin AST ALT Alkaline Phosphatase Lactate Dehydrogenase C-Reactive Protein Total Protein Albumin Triglycerides Lipase Arterial Blood Glucose Arterial Blood Ionized Calcium Urine WBC (Auto) Coronavirus (PCR) SARS-CoV-2 IgG Ab Crossmatch 06/16/20 06/16/20 06/17/20 12:44 18:18 00:39 WBC RBC Hgb Hct MCV MCH MCHC RDW Lymph % (Auto) [place] % (Auto) Lymph # (Auto) [place] # (Auto) Baso # (Auto) Seg Neutrophils % Seg Neuts % (Manual) Lymphocytes % (Manual) Nucleated RBC % Seg Neutrophils # Seg Neutrophils # Man Lymphocytes # (Manual) Monocytes # (Manual) Eosinophils # (Manual) PT INR APTT D-Dimer Heparin Anti-Xa Level ABG pH POC ABG pCO2 POC ABG pO2 ABG pO2 ABG HCO3 ABG O2 Saturation ABG Base Excess ABG Hemoglobin ABG Oxyhemoglobin ABG Sodium ABG Potassium ABG Chloride ABG Glucose Oxyhemoglobin Carboxyhemoglobin Sodium Potassium Chloride Carbon Dioxide BUN Creatinine Glucose POC Glucose 279 H 239 H 247 H Lactic Acid Calcium Magnesium Ferritin Total Bilirubin Direct Bilirubin AST ALT Alkaline Phosphatase Lactate Dehydrogenase C-Reactive Protein Total Protein Albumin Triglycerides Lipase Arterial Blood Glucose Arterial Blood Ionized Calcium Urine WBC (Auto) Coronavirus (PCR) SARS-CoV-2 IgG Ab Crossmatch 06/17/20 06/17/20 06/17/20 03:40 04:08 10:54 WBC RBC Hgb Hct MCV MCH MCHC RDW Lymph % (Auto) [place] % (Auto) Lymph # (Auto) [place] # (Auto) Baso # (Auto) Seg Neutrophils % Seg Neuts % (Manual) Lymphocytes % (Manual) Nucleated RBC % Seg Neutrophils # Seg Neutrophils # Man Lymphocytes # (Manual) Monocytes # (Manual) Eosinophils # (Manual) PT INR APTT D-Dimer Heparin Anti-Xa Level ABG pH POC ABG pCO2 65.7 H POC ABG pO2 ABG pO2 ABG HCO3 ABG O2 Saturation ABG Base Excess ABG Hemoglobin 11.9 L ABG Oxyhemoglobin ABG Sodium ABG Potassium ABG Chloride 93.0 L ABG Glucose 244 H Oxyhemoglobin Carboxyhemoglobin Sodium Potassium Chloride Carbon Dioxide BUN Creatinine Glucose POC Glucose 221 H 248 H Lactic Acid Calcium Magnesium Ferritin Total Bilirubin Direct Bilirubin AST ALT Alkaline Phosphatase Lactate Dehydrogenase C-Reactive Protein Total Protein Albumin Triglycerides Lipase Arterial Blood Glucose 244 H Arterial Blood Ionized Calcium Urine WBC (Auto) Coronavirus (PCR) SARS-CoV-2 IgG Ab Crossmatch 06/17/20 06/17/20 06/17/20 17:47 23:11 23:29 WBC RBC Hgb Hct MCV MCH MCHC RDW Lymph % (Auto) [place] % (Auto) Lymph # (Auto) [place] # (Auto) Baso # (Auto) Seg Neutrophils % Seg Neuts % (Manual) Lymphocytes % (Manual) Nucleated RBC % Seg Neutrophils # Seg Neutrophils # Man Lymphocytes # (Manual) Monocytes # (Manual) Eosinophils # (Manual) PT INR APTT D-Dimer Heparin Anti-Xa Level ABG pH POC ABG pCO2 85.2 H POC ABG pO2 48.4 L ABG pO2 ABG HCO3 ABG O2 Saturation ABG Base Excess ABG Hemoglobin 8.0 L ABG Oxyhemoglobin ABG Sodium ABG Potassium ABG Chloride 95.0 L ABG Glucose 292 H Oxyhemoglobin Carboxyhemoglobin Sodium Potassium Chloride Carbon Dioxide BUN Creatinine Glucose POC Glucose 245 H 252 H Lactic Acid Calcium Magnesium Ferritin Total Bilirubin Direct Bilirubin AST ALT Alkaline Phosphatase Lactate Dehydrogenase C-Reactive Protein Total Protein Albumin Triglycerides Lipase Arterial Blood Glucose 292 H Arterial Blood Ionized Calcium Urine WBC (Auto) Coronavirus (PCR) SARS-CoV-2 IgG Ab Crossmatch 06/18/20 06/18/20 06/18/20 03:14 05:34 11:47 WBC RBC Hgb Hct MCV MCH MCHC RDW Lymph % (Auto) [place] % (Auto) Lymph # (Auto) [place] # (Auto) Baso # (Auto) Seg Neutrophils % Seg Neuts % (Manual) Lymphocytes % (Manual) Nucleated RBC % Seg Neutrophils # Seg Neutrophils # Man Lymphocytes # (Manual) Monocytes # (Manual) Eosinophils # (Manual) PT INR APTT D-Dimer Heparin Anti-Xa Level ABG pH POC ABG pCO2 65.4 H POC ABG pO2 160.7 H ABG pO2 ABG HCO3 ABG O2 Saturation ABG Base Excess ABG Hemoglobin 7.8 L ABG Oxyhemoglobin ABG Sodium ABG Potassium ABG Chloride 95.0 L ABG Glucose 251 H Oxyhemoglobin Carboxyhemoglobin Sodium Potassium Chloride Carbon Dioxide BUN Creatinine Glucose POC Glucose 243 H 263 H Lactic Acid Calcium Magnesium Ferritin Total Bilirubin Direct Bilirubin AST ALT Alkaline Phosphatase Lactate Dehydrogenase C-Reactive Protein Total Protein Albumin Triglycerides Lipase Arterial Blood Glucose 251 H Arterial Blood Ionized Calcium Urine WBC (Auto) Coronavirus (PCR) SARS-CoV-2 IgG Ab Crossmatch 06/18/20 06/18/20 06/19/20 17:31 23:33 04:32 WBC RBC Hgb Hct MCV MCH MCHC RDW Lymph % (Auto) [place] % (Auto) Lymph # (Auto) [place] # (Auto) Baso # (Auto) Seg Neutrophils % Seg Neuts % (Manual) Lymphocytes % (Manual) Nucleated RBC % Seg Neutrophils # Seg Neutrophils # Man Lymphocytes # (Manual) Monocytes # (Manual) Eosinophils # (Manual) PT INR APTT D-Dimer Heparin Anti-Xa Level ABG pH POC ABG pCO2 83.1 H POC ABG pO2 65.8 L ABG pO2 ABG HCO3 ABG O2 Saturation ABG Base Excess ABG Hemoglobin 8.9 L ABG Oxyhemoglobin ABG Sodium ABG Potassium ABG Chloride 96.0 L ABG Glucose 297 H Oxyhemoglobin Carboxyhemoglobin Sodium Potassium Chloride Carbon Dioxide BUN Creatinine Glucose POC Glucose 286 H 238 H Lactic Acid Calcium Magnesium Ferritin Total Bilirubin Direct Bilirubin AST ALT Alkaline Phosphatase Lactate Dehydrogenase C-Reactive Protein Total Protein Albumin Triglycerides Lipase Arterial Blood Glucose 297 H Arterial Blood Ionized Calcium Urine WBC (Auto) Coronavirus (PCR) SARS-CoV-2 IgG Ab Crossmatch 06/19/20 06/19/20 06/19/20 05:55 11:20 17:12 WBC RBC Hgb Hct MCV MCH MCHC RDW Lymph % (Auto) [place] % (Auto) Lymph # (Auto) [place] # (Auto) Baso # (Auto) Seg Neutrophils % Seg Neuts % (Manual) Lymphocytes % (Manual) Nucleated RBC % Seg Neutrophils # Seg Neutrophils # Man Lymphocytes # (Manual) Monocytes # (Manual) Eosinophils # (Manual) PT INR APTT D-Dimer Heparin Anti-Xa Level ABG pH POC ABG pCO2 POC ABG pO2 ABG pO2 ABG HCO3 ABG O2 Saturation ABG Base Excess ABG Hemoglobin ABG Oxyhemoglobin ABG Sodium ABG Potassium ABG Chloride ABG Glucose Oxyhemoglobin Carboxyhemoglobin Sodium Potassium Chloride Carbon Dioxide BUN Creatinine Glucose POC Glucose 274 H 282 H 298 H Lactic Acid Calcium Magnesium Ferritin Total Bilirubin Direct Bilirubin AST ALT Alkaline Phosphatase Lactate Dehydrogenase C-Reactive Protein Total Protein Albumin Triglycerides Lipase Arterial Blood Glucose Arterial Blood Ionized Calcium Urine WBC (Auto) Coronavirus (PCR) SARS-CoV-2 IgG Ab Crossmatch 06/19/20 06/20/20 06/20/20 23:08 03:33 06:01 WBC RBC Hgb Hct MCV MCH MCHC RDW Lymph % (Auto) [place] % (Auto) Lymph # (Auto) [place] # (Auto) Baso # (Auto) Seg Neutrophils % Seg Neuts % (Manual) Lymphocytes % (Manual) Nucleated RBC % Seg Neutrophils # Seg Neutrophils # Man Lymphocytes # (Manual) Monocytes # (Manual) Eosinophils # (Manual) PT INR APTT D-Dimer Heparin Anti-Xa Level ABG pH POC ABG pCO2 POC ABG pO2 ABG pO2 69.9 L ABG HCO3 50.8 H ABG O2 Saturation ABG Base Excess 24.2 H ABG Hemoglobin 5.8 L ABG Oxyhemoglobin ABG Sodium ABG Potassium ABG Chloride ABG Glucose Oxyhemoglobin Carboxyhemoglobin Sodium Potassium Chloride Carbon Dioxide BUN Creatinine Glucose POC Glucose 293 H 182 H Lactic Acid Calcium Magnesium Ferritin Total Bilirubin Direct Bilirubin AST ALT Alkaline Phosphatase Lactate Dehydrogenase C-Reactive Protein Total Protein Albumin Triglycerides Lipase Arterial Blood Glucose Arterial Blood Ionized Calcium Urine WBC (Auto) Coronavirus (PCR) SARS-CoV-2 IgG Ab Crossmatch 06/20/20 06/20/20 06/20/20 11:47 17:46 23:37 WBC RBC Hgb Hct MCV MCH MCHC RDW Lymph % (Auto) [place] % (Auto) Lymph # (Auto) [place] # (Auto) Baso # (Auto) Seg Neutrophils % Seg Neuts % (Manual) Lymphocytes % (Manual) Nucleated RBC % Seg Neutrophils # Seg Neutrophils # Man Lymphocytes # (Manual) Monocytes # (Manual) Eosinophils # (Manual) PT INR APTT D-Dimer Heparin Anti-Xa Level ABG pH POC ABG pCO2 POC ABG pO2 ABG pO2 ABG HCO3 ABG O2 Saturation ABG Base Excess ABG Hemoglobin ABG Oxyhemoglobin ABG Sodium ABG Potassium ABG Chloride ABG Glucose Oxyhemoglobin Carboxyhemoglobin Sodium Potassium Chloride Carbon Dioxide BUN Creatinine Glucose POC Glucose 170 H 215 H 256 H Lactic Acid Calcium Magnesium Ferritin Total Bilirubin Direct Bilirubin AST ALT Alkaline Phosphatase Lactate Dehydrogenase C-Reactive Protein Total Protein Albumin Triglycerides Lipase Arterial Blood Glucose Arterial Blood Ionized Calcium Urine WBC (Auto) Coronavirus (PCR) SARS-CoV-2 IgG Ab Crossmatch 06/21/20 06/21/20 06/21/20 04:00 05:14 05:51 WBC RBC Hgb Hct MCV MCH MCHC RDW Lymph % (Auto) [place] % (Auto) Lymph # (Auto) [place] # (Auto) Baso # (Auto) Seg Neutrophils % Seg Neuts % (Manual) Lymphocytes % (Manual) Nucleated RBC % Seg Neutrophils # Seg Neutrophils # Man Lymphocytes # (Manual) Monocytes # (Manual) Eosinophils # (Manual) PT INR APTT D-Dimer Heparin Anti-Xa Level ABG pH 7.474 H POC ABG pCO2 POC ABG pO2 ABG pO2 ABG HCO3 52.1 H ABG O2 Saturation ABG Base Excess 23.3 H ABG Hemoglobin 5.3 L ABG Oxyhemoglobin ABG Sodium ABG Potassium ABG Chloride ABG Glucose Oxyhemoglobin 93.8 L Carboxyhemoglobin Sodium Potassium Chloride Carbon Dioxide BUN Creatinine Glucose POC Glucose 122 H 129 H Lactic Acid Calcium Magnesium Ferritin Total Bilirubin Direct Bilirubin AST ALT Alkaline Phosphatase Lactate Dehydrogenase C-Reactive Protein Total Protein Albumin Triglycerides Lipase Arterial Blood Glucose Arterial Blood Ionized Calcium Urine WBC (Auto) Coronavirus (PCR) SARS-CoV-2 IgG Ab Crossmatch 06/21/20 06/21/2020 11:00 11:00 11:42 WBC 14.2 H RBC 1.85 L Hgb 6.2 L Hct 19.5 L* MCV 105 H MCH 34 H MCHC RDW 18.0 H Lymph % (Auto) [place] % (Auto) Lymph # (Auto) [place] # (Auto) Baso # (Auto) Seg Neutrophils % Seg Neuts % (Manual) Lymphocytes % (Manual) Nucleated RBC % Seg Neutrophils # Seg Neutrophils # Man Lymphocytes # (Manual) Monocytes # (Manual) Eosinophils # (Manual) PT INR APTT D-Dimer Heparin Anti-Xa Level ABG pH POC ABG pCO2 POC ABG pO2 ABG pO2 ABG HCO3 ABG O2 Saturation ABG Base Excess ABG Hemoglobin ABG Oxyhemoglobin ABG Sodium ABG Potassium ABG Chloride ABG Glucose Oxyhemoglobin Carboxyhemoglobin Sodium 147 H Potassium Chloride Carbon Dioxide 51 H* BUN 31 H Creatinine 0.5 L Glucose 224 H POC Glucose 217 H Lactic Acid Calcium Magnesium Ferritin Total Bilirubin Direct Bilirubin AST ALT Alkaline Phosphatase Lactate Dehydrogenase C-Reactive Protein Total Protein Albumin Triglycerides Lipase Arterial Blood Glucose Arterial Blood Ionized Calcium Urine WBC (Auto) Coronavirus (PCR) SARS-CoV-2 IgG Ab Crossmatch 06/21/20 06/21/20 06/21/20 14:18 14:30 18:36 WBC RBC Hgb Hct MCV MCH MCHC RDW Lymph % (Auto) [place] % (Auto) Lymph # (Auto) [place] # (Auto) Baso # (Auto) Seg Neutrophils % Seg Neuts % (Manual) Lymphocytes % (Manual) Nucleated RBC % Seg Neutrophils # Seg Neutrophils # Man Lymphocytes # (Manual) Monocytes # (Manual) Eosinophils # (Manual) PT 15.1 H INR 1.19 H APTT D-Dimer Heparin Anti-Xa Level ABG pH POC ABG pCO2 POC ABG pO2 ABG pO2 ABG HCO3 ABG O2 Saturation ABG Base Excess ABG Hemoglobin ABG Oxyhemoglobin ABG Sodium ABG Potassium ABG Chloride ABG Glucose Oxyhemoglobin Carboxyhemoglobin Sodium Potassium Chloride Carbon Dioxide BUN Creatinine Glucose POC Glucose 185 H Lactic Acid Calcium Magnesium Ferritin Total Bilirubin Direct Bilirubin AST ALT Alkaline Phosphatase Lactate Dehydrogenase C-Reactive Protein Total Protein Albumin Triglycerides Lipase Arterial Blood Glucose Arterial Blood Ionized Calcium Urine WBC (Auto) Coronavirus (PCR) SARS-CoV-2 IgG Ab Crossmatch See Detail 12/06/22/20 06/22/20 21:14 03:50 04:00 WBC RBC Hgb Hct MCV MCH MCHC RDW Lymph % (Auto) [place] % (Auto) Lymph # (Auto) [place] # (Auto) Baso # (Auto) Seg Neutrophils % Seg Neuts % (Manual) Lymphocytes % (Manual) Nucleated RBC % Seg Neutrophils # Seg Neutrophils # Man Lymphocytes # (Manual) Monocytes # (Manual) Eosinophils # (Manual) PT INR APTT D-Dimer Heparin Anti-Xa Level ABG pH 7.451 H POC ABG pCO2 POC ABG pO2 ABG pO2 ABG HCO3 47.5 H ABG O2 Saturation ABG Base Excess 22.0 H ABG Hemoglobin < 5.1 L ABG Oxyhemoglobin ABG Sodium ABG Potassium ABG Chloride ABG Glucose Oxyhemoglobin 94.1 L Carboxyhemoglobin Sodium 149 H Potassium 3.5 L Chloride Carbon Dioxide 42 H* D BUN 34 H Creatinine 0.4 L Glucose 219 H POC Glucose 250 H Lactic Acid Calcium Magnesium Ferritin Total Bilirubin Direct Bilirubin AST ALT Alkaline Phosphatase Lactate Dehydrogenase C-Reactive Protein Total Protein Albumin Triglycerides Lipase Arterial Blood Glucose Arterial Blood Ionized Calcium Urine WBC (Auto) Coronavirus (PCR) SARS-CoV-2 IgG Ab Crossmatch 06/22/20 06/22/20 06/22/20 12:16 14:29 17:56 WBC RBC Hgb Hct MCV MCH MCHC RDW Lymph % (Auto) [place] % (Auto) Lymph # (Auto) [place] # (Auto) Baso # (Auto) Seg Neutrophils % Seg Neuts % (Manual) Lymphocytes % (Manual) Nucleated RBC % Seg Neutrophils # Seg Neutrophils # Man Lymphocytes # (Manual) Monocytes # (Manual) Eosinophils # (Manual) PT 11.8 L INR APTT 23.5 L D-Dimer Heparin Anti-Xa Level ABG pH POC ABG pCO2 POC ABG pO2 ABG pO2 ABG HCO3 ABG O2 Saturation ABG Base Excess ABG Hemoglobin ABG Oxyhemoglobin ABG Sodium ABG Potassium ABG Chloride ABG Glucose Oxyhemoglobin Carboxyhemoglobin Sodium Potassium Chloride Carbon Dioxide BUN Creatinine Glucose POC Glucose 215 H 215 H Lactic Acid Calcium Magnesium Ferritin Total Bilirubin Direct Bilirubin AST ALT Alkaline Phosphatase Lactate Dehydrogenase C-Reactive Protein Total Protein Albumin Triglycerides Lipase Arterial Blood Glucose Arterial Blood Ionized Calcium Urine WBC (Auto) Coronavirus (PCR) SARS-CoV-2 IgG Ab Crossmatch 06/22/20 06/22/20 06/22/20 23:36 23:45 Unknown WBC 14.1 H RBC 2.70 L Hgb 8.9 L 8.9 L Hct 26.9 L 27.2 L D MCV 101 H MCH 33 H MCHC RDW 17.7 H Lymph % (Auto) [place] % (Auto) Lymph # (Auto) [place] # (Auto) Baso # (Auto) Seg Neutrophils % Seg Neuts % (Manual) 92.0 H Lymphocytes % (Manual) 5.0 L Nucleated RBC % Seg Neutrophils # Seg Neutrophils # Man 13.0 H Lymphocytes # (Manual) 0.7 L Monocytes # (Manual) Eosinophils # (Manual) PT INR APTT D-Dimer Heparin Anti-Xa Level ABG pH POC ABG pCO2 POC ABG pO2 ABG pO2 ABG HCO3 ABG O2 Saturation ABG Base Excess ABG Hemoglobin ABG Oxyhemoglobin ABG Sodium ABG Potassium ABG Chloride ABG Glucose Oxyhemoglobin Carboxyhemoglobin Sodium Potassium Chloride Carbon Dioxide BUN Creatinine Glucose POC Glucose 208 H Lactic Acid Calcium Magnesium Ferritin Total Bilirubin Direct Bilirubin AST ALT Alkaline Phosphatase Lactate Dehydrogenase C-Reactive Protein Total Protein Albumin Triglycerides Lipase Arterial Blood Glucose Arterial Blood Ionized Calcium Urine WBC (Auto) Coronavirus (PCR) SARS-CoV-2 IgG Ab Crossmatch 06/23/20 06/23/20 06/23/20 05:17 05:19 06:50 WBC RBC Hgb Hct MCV MCH MCHC RDW Lymph % (Auto) [place] % (Auto) Lymph # (Auto) [place] # (Auto) Baso # (Auto) Seg Neutrophils % Seg Neuts % (Manual) Lymphocytes % (Manual) Nucleated RBC % Seg Neutrophils # Seg Neutrophils # Man Lymphocytes # (Manual) Monocytes # (Manual) Eosinophils # (Manual) PT INR APTT D-Dimer Heparin Anti-Xa Level ABG pH POC ABG pCO2 69.7 H POC ABG pO2 63.3 L ABG pO2 ABG HCO3 ABG O2 Saturation ABG Base Excess ABG Hemoglobin 10.1 L ABG Oxyhemoglobin ABG Sodium ABG Potassium 3.3 L ABG Chloride ABG Glucose 226 H Oxyhemoglobin Carboxyhemoglobin Sodium Potassium 3.0 L Chloride Carbon Dioxide 41 H* BUN 26 H Creatinine 0.4 L Glucose 209 H POC Glucose 200 H Lactic Acid Calcium Magnesium Ferritin Total Bilirubin Direct Bilirubin AST ALT Alkaline Phosphatase Lactate Dehydrogenase C-Reactive Protein Total Protein Albumin 2.9 L Triglycerides Lipase Arterial Blood Glucose 226 H Arterial Blood Ionized Calcium Urine WBC (Auto) Coronavirus (PCR) SARS-CoV-2 IgG Ab Crossmatch 06/23/20 06/23/20 06/23/20 09:41 12:04 18:16 WBC RBC Hgb 9.1 L Hct 28.0 L MCV MCH MCHC RDW Lymph % (Auto) [place] % (Auto) Lymph # (Auto) [place] # (Auto) Baso # (Auto) Seg Neutrophils % Seg Neuts % (Manual) Lymphocytes % (Manual) Nucleated RBC % Seg Neutrophils # Seg Neutrophils # Man Lymphocytes # (Manual) Monocytes # (Manual) Eosinophils # (Manual) PT INR APTT D-Dimer Heparin Anti-Xa Level ABG pH POC ABG pCO2 POC ABG pO2 ABG pO2 ABG HCO3 ABG O2 Saturation ABG Base Excess ABG Hemoglobin ABG Oxyhemoglobin ABG Sodium ABG Potassium ABG Chloride ABG Glucose Oxyhemoglobin Carboxyhemoglobin Sodium Potassium Chloride Carbon Dioxide BUN Creatinine Glucose POC Glucose 146 H 162 H Lactic Acid Calcium Magnesium Ferritin Total Bilirubin Direct Bilirubin AST ALT Alkaline Phosphatase Lactate Dehydrogenase C-Reactive Protein Total Protein Albumin Triglycerides Lipase Arterial Blood Glucose Arterial Blood Ionized Calcium Urine WBC (Auto) Coronavirus (PCR) SARS-CoV-2 IgG Ab Crossmatch 06/23/20 06/23/20 06/24/20 23:24 23:41 02:39 WBC RBC Hgb 8.2 L 8.8 L Hct 24.9 L 26.8 L MCV MCH MCHC RDW Lymph % (Auto) [place] % (Auto) Lymph # (Auto) [place] # (Auto) Baso # (Auto) Seg Neutrophils % Seg Neuts % (Manual) Lymphocytes % (Manual) Nucleated RBC % Seg Neutrophils # Seg Neutrophils # Man Lymphocytes # (Manual) Monocytes # (Manual) Eosinophils # (Manual) PT INR APTT D-Dimer Heparin Anti-Xa Level ABG pH POC ABG pCO2 POC ABG pO2 ABG pO2 ABG HCO3 ABG O2 Saturation ABG Base Excess ABG Hemoglobin ABG Oxyhemoglobin ABG Sodium ABG Potassium ABG Chloride ABG Glucose Oxyhemoglobin Carboxyhemoglobin Sodium Potassium Chloride Carbon Dioxide BUN Creatinine Glucose POC Glucose 248 H Lactic Acid Calcium Magnesium Ferritin Total Bilirubin Direct Bilirubin AST ALT Alkaline Phosphatase Lactate Dehydrogenase C-Reactive Protein Total Protein Albumin Triglycerides Lipase Arterial Blood Glucose Arterial Blood Ionized Calcium Urine WBC (Auto) Coronavirus (PCR) SARS-CoV-2 IgG Ab Crossmatch 06/24/20 06/24/20 06/24/20 02:39 02:45 05:31 WBC RBC Hgb Hct MCV MCH MCHC RDW Lymph % (Auto) [place] % (Auto) Lymph # (Auto) [place] # (Auto) Baso # (Auto) Seg Neutrophils % Seg Neuts % (Manual) Lymphocytes % (Manual) Nucleated RBC % Seg Neutrophils # Seg Neutrophils # Man Lymphocytes # (Manual) Monocytes # (Manual) Eosinophils # (Manual) PT INR APTT D-Dimer Heparin Anti-Xa Level ABG pH POC ABG pCO2 66.9 H POC ABG pO2 109.7 H ABG pO2 ABG HCO3 ABG O2 Saturation ABG Base Excess ABG Hemoglobin 9.7 L ABG Oxyhemoglobin ABG Sodium 135.0 L ABG Potassium ABG Chloride 97.0 L ABG Glucose 277 H Oxyhemoglobin Carboxyhemoglobin Sodium 136 L Potassium Chloride 95.0 L Carbon Dioxide 34 H D BUN 24 H Creatinine 0.3 L Glucose 260 H POC Glucose 164 H Lactic Acid Calcium Magnesium Ferritin Total Bilirubin Direct Bilirubin AST ALT Alkaline Phosphatase Lactate Dehydrogenase C-Reactive Protein Total Protein 5.2 L Albumin 2.6 L Triglycerides Lipase Arterial Blood Glucose 277 H Arterial Blood Ionized Calcium Urine WBC (Auto) Coronavirus (PCR) SARS-CoV-2 IgG Ab Crossmatch 06/24/20 06/24/20 06/24/20 10:00 11:49 17:39 WBC RBC Hgb 8.9 L Hct 26.5 L MCV MCH MCHC RDW Lymph % (Auto) [place] % (Auto) Lymph # (Auto) [place] # (Auto) Baso # (Auto) Seg Neutrophils % Seg Neuts % (Manual) Lymphocytes % (Manual) Nucleated RBC % Seg Neutrophils # Seg Neutrophils # Man Lymphocytes # (Manual) Monocytes # (Manual) Eosinophils # (Manual) PT INR APTT D-Dimer Heparin Anti-Xa Level ABG pH POC ABG pCO2 POC ABG pO2 ABG pO2 ABG HCO3 ABG O2 Saturation ABG Base Excess ABG Hemoglobin ABG Oxyhemoglobin ABG Sodium ABG Potassium ABG Chloride ABG Glucose Oxyhemoglobin Carboxyhemoglobin Sodium Potassium Chloride Carbon Dioxide BUN Creatinine Glucose POC Glucose 198 H 223 H Lactic Acid Calcium Magnesium Ferritin Total Bilirubin Direct Bilirubin AST ALT Alkaline Phosphatase Lactate Dehydrogenase C-Reactive Protein Total Protein Albumin Triglycerides Lipase Arterial Blood Glucose Arterial Blood Ionized Calcium Urine WBC (Auto) Coronavirus (PCR) SARS-CoV-2 IgG Ab Crossmatch 06/24/20 06/25/20 06/25/20 23:56 02:16 04:08 WBC RBC Hgb Hct MCV MCH MCHC RDW Lymph % (Auto) [place] % (Auto) Lymph # (Auto) [place] # (Auto) Baso # (Auto) Seg Neutrophils % Seg Neuts % (Manual) Lymphocytes % (Manual) Nucleated RBC % Seg Neutrophils # Seg Neutrophils # Man Lymphocytes # (Manual) Monocytes # (Manual) Eosinophils # (Manual) PT INR APTT D-Dimer Heparin Anti-Xa Level ABG pH 7.454 H POC ABG pCO2 56.9 H POC ABG pO2 61.0 L ABG pO2 ABG HCO3 ABG O2 Saturation ABG Base Excess ABG Hemoglobin ABG Oxyhemoglobin ABG Sodium 134.3 L ABG Potassium ABG Chloride 92.0 L ABG Glucose 246 H Oxyhemoglobin Carboxyhemoglobin Sodium 134 L Potassium Chloride 89.7 L Carbon Dioxide 36 H BUN Creatinine 0.3 L Glucose 254 H POC Glucose 225 H Lactic Acid Calcium Magnesium Ferritin Total Bilirubin Direct Bilirubin AST ALT Alkaline Phosphatase Lactate Dehydrogenase C-Reactive Protein Total Protein Albumin 2.9 L Triglycerides Lipase Arterial Blood Glucose 246 H Arterial Blood Ionized Calcium Urine WBC (Auto) Coronavirus (PCR) SARS-CoV-2 IgG Ab Crossmatch 06/25/20 06/25/20 06/25/20 05:44 11:35 17:33 WBC RBC Hgb Hct MCV MCH MCHC RDW Lymph % (Auto) [place] % (Auto) Lymph # (Auto) [place] # (Auto) Baso # (Auto) Seg Neutrophils % Seg Neuts % (Manual) Lymphocytes % (Manual) Nucleated RBC % Seg Neutrophils # Seg Neutrophils # Man Lymphocytes # (Manual) Monocytes # (Manual) Eosinophils # (Manual) PT INR APTT D-Dimer Heparin Anti-Xa Level ABG pH POC ABG pCO2 POC ABG pO2 ABG pO2 ABG HCO3 ABG O2 Saturation ABG Base Excess ABG Hemoglobin ABG Oxyhemoglobin ABG Sodium ABG Potassium ABG Chloride ABG Glucose Oxyhemoglobin Carboxyhemoglobin Sodium Potassium Chloride Carbon Dioxide BUN Creatinine Glucose POC Glucose 170 H 175 H 229 H Lactic Acid Calcium Magnesium Ferritin Total Bilirubin Direct Bilirubin AST ALT Alkaline Phosphatase Lactate Dehydrogenase C-Reactive Protein Total Protein Albumin Triglycerides Lipase Arterial Blood Glucose Arterial Blood Ionized Calcium Urine WBC (Auto) Coronavirus (PCR) SARS-CoV-2 IgG Ab Crossmatch 06/25/20 06/26/20 06/26/20 23:55 02:17 02:17 WBC RBC Hgb 10.0 L Hct 30.4 L MCV MCH MCHC RDW Lymph % (Auto) [place] % (Auto) Lymph # (Auto) [place] # (Auto) Baso # (Auto) Seg Neutrophils % Seg Neuts % (Manual) Lymphocytes % (Manual) Nucleated RBC % Seg Neutrophils # Seg Neutrophils # Man Lymphocytes # (Manual) Monocytes # (Manual) Eosinophils # (Manual) PT INR APTT D-Dimer Heparin Anti-Xa Level ABG pH POC ABG pCO2 POC ABG pO2 ABG pO2 ABG HCO3 ABG O2 Saturation ABG Base Excess ABG Hemoglobin ABG Oxyhemoglobin ABG Sodium ABG Potassium ABG Chloride ABG Glucose Oxyhemoglobin Carboxyhemoglobin Sodium 136 L Potassium Chloride 90.1 L Carbon Dioxide 39 H BUN Creatinine 0.2 L Glucose 232 H POC Glucose 192 H Lactic Acid Calcium Magnesium Ferritin Total Bilirubin Direct Bilirubin AST ALT Alkaline Phosphatase Lactate Dehydrogenase C-Reactive Protein Total Protein 6.1 L Albumin 2.9 L Triglycerides Lipase Arterial Blood Glucose Arterial Blood Ionized Calcium Urine WBC (Auto) Coronavirus (PCR) SARS-CoV-2 IgG Ab Crossmatch 06/26/20 06/26/20 06/26/20 04:15 04:49 05:28 WBC RBC Hgb Hct MCV MCH MCHC RDW Lymph % (Auto) [place] % (Auto) Lymph # (Auto) [place] # (Auto) Baso # (Auto) Seg Neutrophils % Seg Neuts % (Manual) Lymphocytes % (Manual) Nucleated RBC % Seg Neutrophils # Seg Neutrophils # Man Lymphocytes # (Manual) Monocytes # (Manual) Eosinophils # (Manual) PT INR APTT D-Dimer Heparin Anti-Xa Level ABG pH 7.453 H POC ABG pCO2 59.6 H POC ABG pO2 ABG pO2 ABG HCO3 ABG O2 Saturation ABG Base Excess ABG Hemoglobin 10.0 L ABG Oxyhemoglobin ABG Sodium 134.2 L ABG Potassium 3.3 L ABG Chloride 92.0 L ABG Glucose 305 H Oxyhemoglobin Carboxyhemoglobin Sodium Potassium Chloride Carbon Dioxide BUN Creatinine Glucose POC Glucose 234 H Lactic Acid Calcium Magnesium Ferritin Total Bilirubin Direct Bilirubin AST ALT Alkaline Phosphatase Lactate Dehydrogenase C-Reactive Protein Total Protein Albumin Triglycerides 203 H Lipase Arterial Blood Glucose 305 H Arterial Blood Ionized Calcium Urine WBC (Auto) Coronavirus (PCR) SARS-CoV-2 IgG Ab Crossmatch 06/26/20 06/26/20 06/26/20 11:58 17:58 21:32 WBC RBC Hgb Hct MCV MCH MCHC RDW Lymph % (Auto) [place] % (Auto) Lymph # (Auto) [place] # (Auto) Baso # (Auto) Seg Neutrophils % Seg Neuts % (Manual) Lymphocytes % (Manual) Nucleated RBC % Seg Neutrophils # Seg Neutrophils # Man Lymphocytes # (Manual) Monocytes # (Manual) Eosinophils # (Manual) PT INR APTT D-Dimer Heparin Anti-Xa Level ABG pH POC ABG pCO2 POC ABG pO2 ABG pO2 ABG HCO3 ABG O2 Saturation ABG Base Excess ABG Hemoglobin ABG Oxyhemoglobin ABG Sodium ABG Potassium ABG Chloride ABG Glucose Oxyhemoglobin Carboxyhemoglobin Sodium Potassium Chloride Carbon Dioxide BUN Creatinine Glucose POC Glucose 198 H 193 H 191 H Lactic Acid Calcium Magnesium Ferritin Total Bilirubin Direct Bilirubin AST ALT Alkaline Phosphatase Lactate Dehydrogenase C-Reactive Protein Total Protein Albumin Triglycerides Lipase Arterial Blood Glucose Arterial Blood Ionized Calcium Urine WBC (Auto) Coronavirus (PCR) SARS-CoV-2 IgG Ab Crossmatch 06/26/20 06/27/20 06/27/20 23:40 04:35 05:32 WBC RBC Hgb Hct MCV MCH MCHC RDW Lymph % (Auto) [place] % (Auto) Lymph # (Auto) [place] # (Auto) Baso # (Auto) Seg Neutrophils % Seg Neuts % (Manual) Lymphocytes % (Manual) Nucleated RBC % Seg Neutrophils # Seg Neutrophils # Man Lymphocytes # (Manual) Monocytes # (Manual) Eosinophils # (Manual) PT INR APTT D-Dimer Heparin Anti-Xa Level ABG pH 7.464 H POC ABG pCO2 60.8 H POC ABG pO2 ABG pO2 ABG HCO3 ABG O2 Saturation ABG Base Excess ABG Hemoglobin 10.1 L ABG Oxyhemoglobin ABG Sodium ABG Potassium 2.9 L ABG Chloride 92.0 L ABG Glucose 298 H Oxyhemoglobin Carboxyhemoglobin Sodium Potassium Chloride Carbon Dioxide BUN Creatinine Glucose POC Glucose 241 H 211 H Lactic Acid Calcium Magnesium Ferritin Total Bilirubin Direct Bilirubin AST ALT Alkaline Phosphatase Lactate Dehydrogenase C-Reactive Protein Total Protein Albumin Triglycerides Lipase Arterial Blood Glucose 298 H Arterial Blood Ionized Calcium Urine WBC (Auto) Coronavirus (PCR) SARS-CoV-2 IgG Ab Crossmatch 06/27/20 06/27/20 06/27/20 12:37 18:08 20:52 WBC RBC Hgb Hct MCV MCH MCHC RDW Lymph % (Auto) [place] % (Auto) Lymph # (Auto) [place] # (Auto) Baso # (Auto) Seg Neutrophils % Seg Neuts % (Manual) Lymphocytes % (Manual) Nucleated RBC % Seg Neutrophils # Seg Neutrophils # Man Lymphocytes # (Manual) Monocytes # (Manual) Eosinophils # (Manual) PT INR APTT D-Dimer Heparin Anti-Xa Level ABG pH POC ABG pCO2 POC ABG pO2 ABG pO2 ABG HCO3 ABG O2 Saturation ABG Base Excess ABG Hemoglobin ABG Oxyhemoglobin ABG Sodium ABG Potassium ABG Chloride ABG Glucose Oxyhemoglobin Carboxyhemoglobin Sodium Potassium Chloride Carbon Dioxide BUN Creatinine Glucose POC Glucose 182 H 197 H 195 H Lactic Acid Calcium Magnesium Ferritin Total Bilirubin Direct Bilirubin AST ALT Alkaline Phosphatase Lactate Dehydrogenase C-Reactive Protein Total Protein Albumin Triglycerides Lipase Arterial Blood Glucose Arterial Blood Ionized Calcium Urine WBC (Auto) Coronavirus (PCR) SARS-CoV-2 IgG Ab Crossmatch 06/27/20 06/28/20 06/28/20 Unknown 04:17 04:50 WBC RBC Hgb Hct MCV MCH MCHC RDW Lymph % (Auto) [place] % (Auto) Lymph # (Auto) [place] # (Auto) Baso # (Auto) Seg Neutrophils % Seg Neuts % (Manual) Lymphocytes % (Manual) Nucleated RBC % Seg Neutrophils # Seg Neutrophils # Man Lymphocytes # (Manual) Monocytes # (Manual) Eosinophils # (Manual) PT INR APTT D-Dimer Heparin Anti-Xa Level ABG pH POC ABG pCO2 58.6 H POC ABG pO2 60.1 L ABG pO2 ABG HCO3 ABG O2 Saturation ABG Base Excess ABG Hemoglobin 10.0 L ABG Oxyhemoglobin ABG Sodium 125.3 L ABG Potassium ABG Chloride 93.0 L ABG Glucose 308 H Oxyhemoglobin Carboxyhemoglobin Sodium Potassium 2.9 L* Chloride 93.4 L Carbon Dioxide 42 H* BUN Creatinine 0.3 L Glucose 211 H POC Glucose 252 H Lactic Acid Calcium 8.1 L Magnesium Ferritin Total Bilirubin Direct Bilirubin AST ALT Alkaline Phosphatase Lactate Dehydrogenase C-Reactive Protein Total Protein 5.1 L Albumin 2.4 L Triglycerides Lipase Arterial Blood Glucose 308 H Arterial Blood Ionized Calcium Urine WBC (Auto) Coronavirus (PCR) SARS-CoV-2 IgG Ab Crossmatch 06/28/20 06/28/20 06/28/20 06:35 06:35 11:36 WBC 18.9 H RBC 2.85 L Hgb 9.5 L Hct 28.4 L MCV 100 H MCH 33 H MCHC RDW 17.3 H Lymph % (Auto) [place] % (Auto) Lymph # (Auto) [place] # (Auto) Baso # (Auto) Seg Neutrophils % 88.6 H Seg Neuts % (Manual) 95.0 H Lymphocytes % (Manual) 1.0 L Nucleated RBC % Seg Neutrophils # 15.9 H Seg Neutrophils # Man 18.0 H Lymphocytes # (Manual) 0.2 L Monocytes # (Manual) Eosinophils # (Manual) PT INR APTT D-Dimer Heparin Anti-Xa Level ABG pH POC ABG pCO2 POC ABG pO2 ABG pO2 ABG HCO3 ABG O2 Saturation ABG Base Excess ABG Hemoglobin ABG Oxyhemoglobin ABG Sodium ABG Potassium ABG Chloride ABG Glucose Oxyhemoglobin Carboxyhemoglobin Sodium Potassium Chloride 94.2 L Carbon Dioxide 38 H BUN Creatinine 0.3 L Glucose 228 H POC Glucose 243 H Lactic Acid Calcium Magnesium Ferritin Total Bilirubin Direct Bilirubin AST ALT Alkaline Phosphatase Lactate Dehydrogenase C-Reactive Protein Total Protein 6.1 L Albumin 2.7 L Triglycerides Lipase Arterial Blood Glucose Arterial Blood Ionized Calcium Urine WBC (Auto) Coronavirus (PCR) SARS-CoV-2 IgG Ab Crossmatch 06/28/20 06/28/20 06/29/20 16:53 21:10 00:06 WBC RBC Hgb Hct MCV MCH MCHC RDW Lymph % (Auto) [place] % (Auto) Lymph # (Auto) [place] # (Auto) Baso # (Auto) Seg Neutrophils % Seg Neuts % (Manual) Lymphocytes % (Manual) Nucleated RBC % Seg Neutrophils # Seg Neutrophils # Man Lymphocytes # (Manual) Monocytes # (Manual) Eosinophils # (Manual) PT INR APTT D-Dimer Heparin Anti-Xa Level ABG pH POC ABG pCO2 POC ABG pO2 ABG pO2 ABG HCO3 ABG O2 Saturation ABG Base Excess ABG Hemoglobin ABG Oxyhemoglobin ABG Sodium ABG Potassium ABG Chloride ABG Glucose Oxyhemoglobin Carboxyhemoglobin Sodium Potassium Chloride Carbon Dioxide BUN Creatinine Glucose POC Glucose 211 H 195 H 200 H Lactic Acid Calcium Magnesium Ferritin Total Bilirubin Direct Bilirubin AST ALT Alkaline Phosphatase Lactate Dehydrogenase C-Reactive Protein Total Protein Albumin Triglycerides Lipase Arterial Blood Glucose Arterial Blood Ionized Calcium Urine WBC (Auto) Coronavirus (PCR) SARS-CoV-2 IgG Ab Crossmatch 06/29/20 06/29/20 06/29/20 03:11 04:00 04:00 WBC 18.8 H RBC 2.82 L Hgb 10.1 L Hct 28.5 L MCV 101 H MCH 36 H MCHC 36 H RDW 17.5 H Lymph % (Auto) 10.7 L [place] % (Auto) Lymph # (Auto) [place] # (Auto) 1.0 H Baso # (Auto) 0.3 H Seg Neutrophils % 82.2 H Seg Neuts % (Manual) Lymphocytes % (Manual) Nucleated RBC % Seg Neutrophils # 15.5 H Seg Neutrophils # Man Lymphocytes # (Manual) Monocytes # (Manual) Eosinophils # (Manual) PT INR APTT D-Dimer Heparin Anti-Xa Level ABG pH POC ABG pCO2 57.5 H POC ABG pO2 69.1 L ABG pO2 ABG HCO3 ABG O2 Saturation ABG Base Excess ABG Hemoglobin 10.2 L ABG Oxyhemoglobin 92.3 L ABG Sodium 130.7 L ABG Potassium 3.2 L ABG Chloride 93.0 L ABG Glucose 228 H Oxyhemoglobin Carboxyhemoglobin Sodium 134 L Potassium 3.3 L Chloride 89.5 L Carbon Dioxide 40 H BUN Creatinine 0.2 L Glucose 190 H POC Glucose Lactic Acid Calcium Magnesium Ferritin Total Bilirubin Direct Bilirubin AST < 5 L ALT < 5 L Alkaline Phosphatase Lactate Dehydrogenase C-Reactive Protein Total Protein 5.9 L Albumin 2.2 L Triglycerides Lipase Arterial Blood Glucose 228 H Arterial Blood Ionized Calcium Urine WBC (Auto) Coronavirus (PCR) SARS-CoV-2 IgG Ab Crossmatch 06/29/20 06/29/20 06/29/20 05:00 05:23 09:36 WBC RBC Hgb Hct MCV MCH MCHC RDW Lymph % (Auto) [place] % (Auto) Lymph # (Auto) [place] # (Auto) Baso # (Auto) Seg Neutrophils % Seg Neuts % (Manual) Lymphocytes % (Manual) Nucleated RBC % Seg Neutrophils # Seg Neutrophils # Man Lymphocytes # (Manual) Monocytes # (Manual) Eosinophils # (Manual) PT INR APTT D-Dimer Heparin Anti-Xa Level ABG pH POC ABG pCO2 POC ABG pO2 ABG pO2 ABG HCO3 ABG O2 Saturation ABG Base Excess ABG Hemoglobin ABG Oxyhemoglobin ABG Sodium ABG Potassium ABG Chloride ABG Glucose Oxyhemoglobin Carboxyhemoglobin Sodium Potassium Chloride Carbon Dioxide BUN Creatinine Glucose POC Glucose 165 H Lactic Acid Calcium Magnesium Ferritin Total Bilirubin Direct Bilirubin AST ALT Alkaline Phosphatase Lactate Dehydrogenase C-Reactive Protein Total Protein Albumin Triglycerides 1544 H 1799 H Lipase Arterial Blood Glucose Arterial Blood Ionized Calcium Urine WBC (Auto) Coronavirus (PCR) SARS-CoV-2 IgG Ab Crossmatch 06/29/20 06/29/20 06/29/20 09:36 12:02 18:00 WBC RBC Hgb Hct MCV MCH MCHC RDW Lymph % (Auto) [place] % (Auto) Lymph # (Auto) [place] # (Auto) Baso # (Auto) Seg Neutrophils % Seg Neuts % (Manual) Lymphocytes % (Manual) Nucleated RBC % Seg Neutrophils # Seg Neutrophils # Man Lymphocytes # (Manual) Monocytes # (Manual) Eosinophils # (Manual) PT INR APTT D-Dimer Heparin Anti-Xa Level ABG pH POC ABG pCO2 POC ABG pO2 ABG pO2 ABG HCO3 ABG O2 Saturation ABG Base Excess ABG Hemoglobin ABG Oxyhemoglobin ABG Sodium ABG Potassium ABG Chloride ABG Glucose Oxyhemoglobin Carboxyhemoglobin Sodium Potassium Chloride Carbon Dioxide BUN Creatinine Glucose POC Glucose 197 H 187 H Lactic Acid Calcium Magnesium Ferritin Total Bilirubin Direct Bilirubin AST ALT Alkaline Phosphatase Lactate Dehydrogenase C-Reactive Protein Total Protein Albumin Triglycerides Lipase 86 H Arterial Blood Glucose Arterial Blood Ionized Calcium Urine WBC (Auto) Coronavirus (PCR) SARS-CoV-2 IgG Ab Crossmatch 06/29/20 06/30/20 06/30/20 23:33 03:46 05:50 WBC RBC Hgb Hct MCV MCH MCHC RDW Lymph % (Auto) [place] % (Auto) Lymph # (Auto) [place] # (Auto) Baso # (Auto) Seg Neutrophils % Seg Neuts % (Manual) Lymphocytes % (Manual) Nucleated RBC % Seg Neutrophils # Seg Neutrophils # Man Lymphocytes # (Manual) Monocytes # (Manual) Eosinophils # (Manual) PT INR APTT D-Dimer Heparin Anti-Xa Level ABG pH 7.466 H POC ABG pCO2 57.3 H POC ABG pO2 66.1 L ABG pO2 ABG HCO3 ABG O2 Saturation ABG Base Excess ABG Hemoglobin 10.2 L ABG Oxyhemoglobin 92.3 L ABG Sodium 134.4 L ABG Potassium 3.2 L ABG Chloride 94.0 L ABG Glucose 178 H Oxyhemoglobin Carboxyhemoglobin Sodium Potassium Chloride Carbon Dioxide BUN Creatinine Glucose POC Glucose 170 H 170 H Lactic Acid Calcium Magnesium Ferritin Total Bilirubin Direct Bilirubin AST ALT Alkaline Phosphatase Lactate Dehydrogenase C-Reactive Protein Total Protein Albumin Triglycerides Lipase Arterial Blood Glucose 178 H Arterial Blood Ionized Calcium Urine WBC (Auto) Coronavirus (PCR) SARS-CoV-2 IgG Ab Crossmatch 06/30/20 06/30/20 06/30/20 07:00 07:00 12:04 WBC 15.6 H RBC 2.91 L Hgb 9.8 L Hct 29.7 L MCV 102 H MCH 34 H MCHC RDW 17.8 H Lymph % (Auto) [place] % (Auto) Lymph # (Auto) [place] # (Auto) Baso # (Auto) Seg Neutrophils % Seg Neuts % (Manual) Lymphocytes % (Manual) 5.0 L Nucleated RBC % Seg Neutrophils # Seg Neutrophils # Man 14.8 H Lymphocytes # (Manual) 0.8 L Monocytes # (Manual) Eosinophils # (Manual) PT INR APTT D-Dimer Heparin Anti-Xa Level ABG pH POC ABG pCO2 POC ABG pO2 ABG pO2 ABG HCO3 ABG O2 Saturation ABG Base Excess ABG Hemoglobin ABG Oxyhemoglobin ABG Sodium ABG Potassium ABG Chloride ABG Glucose Oxyhemoglobin Carboxyhemoglobin Sodium Potassium Chloride 93.3 L Carbon Dioxide 43 H* BUN Creatinine 0.3 L Glucose 260 H POC Glucose 245 H Lactic Acid Calcium Magnesium Ferritin Total Bilirubin Direct Bilirubin AST ALT Alkaline Phosphatase Lactate Dehydrogenase C-Reactive Protein Total Protein Albumin 2.8 L Triglycerides 452 H Lipase Arterial Blood Glucose Arterial Blood Ionized Calcium Urine WBC (Auto) Coronavirus (PCR) SARS-CoV-2 IgG Ab Crossmatch 06/30/20 07/01/20 07/01/20 17:32 00:02 05:02 WBC RBC Hgb Hct MCV MCH MCHC RDW Lymph % (Auto) [place] % (Auto) Lymph # (Auto) [place] # (Auto) Baso # (Auto) Seg Neutrophils % Seg Neuts % (Manual) Lymphocytes % (Manual) Nucleated RBC % Seg Neutrophils # Seg Neutrophils # Man Lymphocytes # (Manual) Monocytes # (Manual) Eosinophils # (Manual) PT INR APTT D-Dimer Heparin Anti-Xa Level ABG pH POC ABG pCO2 58.1 H POC ABG pO2 ABG pO2 ABG HCO3 ABG O2 Saturation ABG Base Excess ABG Hemoglobin 11.2 L ABG Oxyhemoglobin ABG Sodium 132.7 L ABG Potassium ABG Chloride 92.0 L ABG Glucose 238 H Oxyhemoglobin Carboxyhemoglobin Sodium Potassium Chloride Carbon Dioxide BUN Creatinine Glucose POC Glucose 209 H 208 H Lactic Acid Calcium Magnesium Ferritin Total Bilirubin Direct Bilirubin AST ALT Alkaline Phosphatase Lactate Dehydrogenase C-Reactive Protein Total Protein Albumin Triglycerides Lipase Arterial Blood Glucose 238 H Arterial Blood Ionized Calcium Urine WBC (Auto) Coronavirus (PCR) SARS-CoV-2 IgG Ab Crossmatch 07/01/20 07/01/20 07/01/20 06:16 06:41 06:41 WBC 18.1 H RBC 2.33 L Hgb 7.1 L Hct 21.3 L D MCV MCH MCHC RDW Lymph % (Auto) [place] % (Auto) Lymph # (Auto) [place] # (Auto) Baso # (Auto) Seg Neutrophils % Seg Neuts % (Manual) 82.0 H Lymphocytes % (Manual) 7.0 L Nucleated RBC % 1.0 H Seg Neutrophils # Seg Neutrophils # Man 14.8 H Lymphocytes # (Manual) Monocytes # (Manual) 1.1 H Eosinophils # (Manual) 0.5 H PT INR APTT D-Dimer Heparin Anti-Xa Level < 0.10 L ABG pH POC ABG pCO2 POC ABG pO2 ABG pO2 ABG HCO3 ABG O2 Saturation ABG Base Excess ABG Hemoglobin ABG Oxyhemoglobin ABG Sodium ABG Potassium ABG Chloride ABG Glucose Oxyhemoglobin Carboxyhemoglobin Sodium Potassium Chloride Carbon Dioxide BUN Creatinine Glucose POC Glucose 180 H Lactic Acid Calcium Magnesium Ferritin Total Bilirubin Direct Bilirubin AST ALT Alkaline Phosphatase Lactate Dehydrogenase C-Reactive Protein Total Protein Albumin Triglycerides Lipase Arterial Blood Glucose Arterial Blood Ionized Calcium Urine WBC (Auto) Coronavirus (PCR) SARS-CoV-2 IgG Ab Crossmatch 07/01/20 07/01/20 07/01/20 08:11 12:04 16:16 WBC RBC Hgb Hct MCV MCH MCHC RDW Lymph % (Auto) [place] % (Auto) Lymph # (Auto) [place] # (Auto) Baso # (Auto) Seg Neutrophils % Seg Neuts % (Manual) Lymphocytes % (Manual) Nucleated RBC % Seg Neutrophils # Seg Neutrophils # Man Lymphocytes # (Manual) Monocytes # (Manual) Eosinophils # (Manual) PT INR APTT D-Dimer Heparin Anti-Xa Level 1.02 H ABG pH POC ABG pCO2 POC ABG pO2 ABG pO2 ABG HCO3 ABG O2 Saturation ABG Base Excess ABG Hemoglobin ABG Oxyhemoglobin ABG Sodium ABG Potassium ABG Chloride ABG Glucose Oxyhemoglobin Carboxyhemoglobin Sodium 135 L Potassium 3.0 L Chloride 93.1 L Carbon Dioxide 40 H BUN Creatinine 0.3 L Glucose 140 H POC Glucose 223 H Lactic Acid Calcium Magnesium Ferritin Total Bilirubin Direct Bilirubin AST ALT Alkaline Phosphatase Lactate Dehydrogenase C-Reactive Protein Total Protein Albumin Triglycerides Lipase Arterial Blood Glucose Arterial Blood Ionized Calcium Urine WBC (Auto) Coronavirus (PCR) SARS-CoV-2 IgG Ab Crossmatch 07/01/20 07/01/20 07/02/20 17:09 23:19 00:56 WBC RBC Hgb Hct MCV MCH MCHC RDW Lymph % (Auto) [place] % (Auto) Lymph # (Auto) [place] # (Auto) Baso # (Auto) Seg Neutrophils % Seg Neuts % (Manual) Lymphocytes % (Manual) Nucleated RBC % Seg Neutrophils # Seg Neutrophils # Man Lymphocytes # (Manual) Monocytes # (Manual) Eosinophils # (Manual) PT INR APTT D-Dimer Heparin Anti-Xa Level 0.22 L ABG pH POC ABG pCO2 POC ABG pO2 ABG pO2 ABG HCO3 ABG O2 Saturation ABG Base Excess ABG Hemoglobin ABG Oxyhemoglobin ABG Sodium ABG Potassium ABG Chloride ABG Glucose Oxyhemoglobin Carboxyhemoglobin Sodium Potassium Chloride Carbon Dioxide BUN Creatinine Glucose POC Glucose 233 H 255 H Lactic Acid Calcium Magnesium Ferritin Total Bilirubin Direct Bilirubin AST ALT Alkaline Phosphatase Lactate Dehydrogenase C-Reactive Protein Total Protein Albumin Triglycerides Lipase Arterial Blood Glucose Arterial Blood Ionized Calcium Urine WBC (Auto) Coronavirus (PCR) SARS-CoV-2 IgG Ab Crossmatch 07/02/20 07/02/20 07/02/20 03:51 05:35 11:39 WBC RBC Hgb Hct MCV MCH MCHC RDW Lymph % (Auto) [place] % (Auto) Lymph # (Auto) [place] # (Auto) Baso # (Auto) Seg Neutrophils % Seg Neuts % (Manual) Lymphocytes % (Manual) Nucleated RBC % Seg Neutrophils # Seg Neutrophils # Man Lymphocytes # (Manual) Monocytes # (Manual) Eosinophils # (Manual) PT INR APTT D-Dimer Heparin Anti-Xa Level ABG pH POC ABG pCO2 54.9 H POC ABG pO2 52.1 L ABG pO2 ABG HCO3 ABG O2 Saturation ABG Base Excess ABG Hemoglobin 11.9 L ABG Oxyhemoglobin 82.8 L ABG Sodium 130.2 L ABG Potassium ABG Chloride 92.0 L ABG Glucose 249 H Oxyhemoglobin Carboxyhemoglobin 1.9 H Sodium Potassium Chloride Carbon Dioxide BUN Creatinine Glucose POC Glucose 205 H 235 H Lactic Acid Calcium Magnesium Ferritin Total Bilirubin Direct Bilirubin AST ALT Alkaline Phosphatase Lactate Dehydrogenase C-Reactive Protein Total Protein Albumin Triglycerides Lipase Arterial Blood Glucose 249 H Arterial Blood Ionized Calcium Urine WBC (Auto) Coronavirus (PCR) SARS-CoV-2 IgG Ab Crossmatch 07/02/20 07/02/20 07/02/20 16:08 16:08 17:54 WBC 19.8 H RBC 3.28 L Hgb 10.7 L D Hct 32.7 L D MCV 100 H MCH 33 H MCHC RDW 17.2 H Lymph % (Auto) [place] % (Auto) Lymph # (Auto) [place] # (Auto) Baso # (Auto) Seg Neutrophils % Seg Neuts % (Manual) Lymphocytes % (Manual) Nucleated RBC % Seg Neutrophils # Seg Neutrophils # Man Lymphocytes # (Manual) Monocytes # (Manual) Eosinophils # (Manual) PT INR APTT D-Dimer Heparin Anti-Xa Level ABG pH POC ABG pCO2 POC ABG pO2 ABG pO2 ABG HCO3 ABG O2 Saturation ABG Base Excess ABG Hemoglobin ABG Oxyhemoglobin ABG Sodium ABG Potassium ABG Chloride ABG Glucose Oxyhemoglobin Carboxyhemoglobin Sodium 136 L Potassium Chloride 92.4 L Carbon Dioxide 35 H BUN Creatinine 0.3 L Glucose 203 H POC Glucose 175 H Lactic Acid Calcium Magnesium Ferritin Total Bilirubin Direct Bilirubin AST ALT Alkaline Phosphatase Lactate Dehydrogenase C-Reactive Protein Total Protein Albumin Triglycerides Lipase Arterial Blood Glucose Arterial Blood Ionized Calcium Urine WBC (Auto) Coronavirus (PCR) SARS-CoV-2 IgG Ab Crossmatch 07/02/20 07/03/20 07/03/20 23:46 03:25 05:54 WBC RBC Hgb Hct MCV MCH MCHC RDW Lymph % (Auto) [place] % (Auto) Lymph # (Auto) [place] # (Auto) Baso # (Auto) Seg Neutrophils % Seg Neuts % (Manual) Lymphocytes % (Manual) Nucleated RBC % Seg Neutrophils # Seg Neutrophils # Man Lymphocytes # (Manual) Monocytes # (Manual) Eosinophils # (Manual) PT INR APTT D-Dimer Heparin Anti-Xa Level ABG pH 7.468 H POC ABG pCO2 51.5 H POC ABG pO2 ABG pO2 ABG HCO3 ABG O2 Saturation ABG Base Excess ABG Hemoglobin ABG Oxyhemoglobin ABG Sodium 130.2 L ABG Potassium ABG Chloride 91.0 L ABG Glucose 210 H Oxyhemoglobin Carboxyhemoglobin 1.6 H Sodium Potassium Chloride Carbon Dioxide BUN Creatinine Glucose POC Glucose 173 H 125 H Lactic Acid Calcium Magnesium Ferritin Total Bilirubin Direct Bilirubin AST ALT Alkaline Phosphatase Lactate Dehydrogenase C-Reactive Protein Total Protein Albumin Triglycerides Lipase Arterial Blood Glucose 210 H Arterial Blood Ionized Calcium Urine WBC (Auto) Coronavirus (PCR) SARS-CoV-2 IgG Ab Crossmatch 07/03/20 07/03/20 07/03/20 11:43 12:20 12:20 WBC 16.5 H RBC 3.13 L Hgb 10.4 L Hct 31.8 L MCV 102 H MCH 33 H MCHC RDW 17.2 H Lymph % (Auto) [place] % (Auto) Lymph # (Auto) [place] # (Auto) Baso # (Auto) Seg Neutrophils % Seg Neuts % (Manual) Lymphocytes % (Manual) Nucleated RBC % Seg Neutrophils # Seg Neutrophils # Man Lymphocytes # (Manual) Monocytes # (Manual) Eosinophils # (Manual) PT INR APTT D-Dimer Heparin Anti-Xa Level ABG pH POC ABG pCO2 POC ABG pO2 ABG pO2 ABG HCO3 ABG O2 Saturation ABG Base Excess ABG Hemoglobin ABG Oxyhemoglobin ABG Sodium ABG Potassium ABG Chloride ABG Glucose Oxyhemoglobin Carboxyhemoglobin Sodium 132 L Potassium Chloride 88.5 L Carbon Dioxide 37 H BUN Creatinine 0.3 L Glucose 230 H POC Glucose 223 H Lactic Acid Calcium Magnesium Ferritin Total Bilirubin Direct Bilirubin AST ALT Alkaline Phosphatase Lactate Dehydrogenase C-Reactive Protein Total Protein Albumin Triglycerides Lipase Arterial Blood Glucose Arterial Blood Ionized Calcium Urine WBC (Auto) Coronavirus (PCR) SARS-CoV-2 IgG Ab Crossmatch 07/03/20 07/03/20 07/04/20 17:24 21:41 00:54 WBC RBC Hgb Hct MCV MCH MCHC RDW Lymph % (Auto) [place] % (Auto) Lymph # (Auto) [place] # (Auto) Baso # (Auto) Seg Neutrophils % Seg Neuts % (Manual) Lymphocytes % (Manual) Nucleated RBC % Seg Neutrophils # Seg Neutrophils # Man Lymphocytes # (Manual) Monocytes # (Manual) Eosinophils # (Manual) PT INR APTT D-Dimer Heparin Anti-Xa Level ABG pH POC ABG pCO2 POC ABG pO2 ABG pO2 ABG HCO3 ABG O2 Saturation ABG Base Excess ABG Hemoglobin ABG Oxyhemoglobin ABG Sodium ABG Potassium ABG Chloride ABG Glucose Oxyhemoglobin Carboxyhemoglobin Sodium Potassium Chloride Carbon Dioxide BUN Creatinine Glucose POC Glucose 163 H 220 H 195 H Lactic Acid Calcium Magnesium Ferritin Total Bilirubin Direct Bilirubin AST ALT Alkaline Phosphatase Lactate Dehydrogenase C-Reactive Protein Total Protein Albumin Triglycerides Lipase Arterial Blood Glucose Arterial Blood Ionized Calcium Urine WBC (Auto) Coronavirus (PCR) SARS-CoV-2 IgG Ab Crossmatch 07/04/20 07/04/20 07/04/20 03:25 04:00 04:00 WBC 14.9 H RBC 2.91 L Hgb 9.5 L Hct 29.2 L MCV 100 H MCH 33 H MCHC RDW 16.7 H Lymph % (Auto) 8.4 L [place] % (Auto) Lymph # (Auto) [place] # (Auto) 1.1 H Baso # (Auto) Seg Neutrophils % 84.2 H Seg Neuts % (Manual) Lymphocytes % (Manual) Nucleated RBC % Seg Neutrophils # 12.6 H Seg Neutrophils # Man Lymphocytes # (Manual) Monocytes # (Manual) Eosinophils # (Manual) PT INR APTT D-Dimer Heparin Anti-Xa Level ABG pH 7.474 H POC ABG pCO2 POC ABG pO2 51.8 L ABG pO2 ABG HCO3 ABG O2 Saturation ABG Base Excess ABG Hemoglobin ABG Oxyhemoglobin ABG Sodium ABG Potassium ABG Chloride ABG Glucose Oxyhemoglobin Carboxyhemoglobin Sodium Potassium 3.4 L Chloride 92.1 L Carbon Dioxide 34 H BUN Creatinine 0.3 L Glucose 173 H POC Glucose Lactic Acid Calcium Magnesium Ferritin Total Bilirubin Direct Bilirubin AST ALT Alkaline Phosphatase Lactate Dehydrogenase C-Reactive Protein Total Protein Albumin Triglycerides Lipase Arterial Blood Glucose Arterial Blood Ionized Calcium Urine WBC (Auto) Coronavirus (PCR) SARS-CoV-2 IgG Ab Crossmatch 12/27/20 12/27/20 12/27/20 06:18 11:39 17:18 WBC RBC Hgb Hct MCV MCH MCHC RDW Lymph % (Auto) [place] % (Auto) Lymph # (Auto) [place] # (Auto) Baso # (Auto) Seg Neutrophils % Seg Neuts % (Manual) Lymphocytes % (Manual) Nucleated RBC % Seg Neutrophils # Seg Neutrophils # Man Lymphocytes # (Manual) Monocytes # (Manual) Eosinophils # (Manual) PT INR APTT D-Dimer Heparin Anti-Xa Level ABG pH POC ABG pCO2 POC ABG pO2 ABG pO2 ABG HCO3 ABG O2 Saturation ABG Base Excess ABG Hemoglobin ABG Oxyhemoglobin ABG Sodium ABG Potassium ABG Chloride ABG Glucose Oxyhemoglobin Carboxyhemoglobin Sodium Potassium Chloride Carbon Dioxide BUN Creatinine Glucose POC Glucose 158 H 257 H 148 H Lactic Acid Calcium Magnesium Ferritin Total Bilirubin Direct Bilirubin AST ALT Alkaline Phosphatase Lactate Dehydrogenase C-Reactive Protein Total Protein Albumin Triglycerides Lipase Arterial Blood Glucose Arterial Blood Ionized Calcium Urine WBC (Auto) Coronavirus (PCR) SARS-CoV-2 IgG Ab Crossmatch 07/04/20 07/05/20 07/05/20 23:23 03:13 05:18 WBC 13.3 H RBC 2.90 L Hgb 9.8 L Hct 29.3 L MCV 101 H MCH 34 H MCHC RDW 17.0 H Lymph % (Auto) 11.1 L [place] % (Auto) Lymph # (Auto) [place] # (Auto) Baso # (Auto) Seg Neutrophils % 82.3 H Seg Neuts % (Manual) Lymphocytes % (Manual) Nucleated RBC % Seg Neutrophils # 10.9 H Seg Neutrophils # Man Lymphocytes # (Manual) Monocytes # (Manual) Eosinophils # (Manual) PT INR APTT D-Dimer Heparin Anti-Xa Level ABG pH 7.48 H POC ABG pCO2 52.0 H POC ABG pO2 ABG pO2 ABG HCO3 ABG O2 Saturation ABG Base Excess ABG Hemoglobin 10.0 L ABG Oxyhemoglobin ABG Sodium 131.0 L ABG Potassium 3.3 L ABG Chloride 93.0 L ABG Glucose 177 H Oxyhemoglobin Carboxyhemoglobin Sodium Potassium Chloride Carbon Dioxide BUN Creatinine Glucose POC Glucose 227 H Lactic Acid Calcium Magnesium Ferritin Total Bilirubin Direct Bilirubin AST ALT Alkaline Phosphatase Lactate Dehydrogenase C-Reactive Protein Total Protein Albumin Triglycerides Lipase Arterial Blood Glucose 177 H Arterial Blood Ionized Calcium Urine WBC (Auto) Coronavirus (PCR) SARS-CoV-2 IgG Ab Crossmatch 07/05/20 07/05/20 07/05/20 05:18 05:25 05:57 WBC RBC Hgb Hct MCV MCH MCHC RDW Lymph % (Auto) [place] % (Auto) Lymph # (Auto) [place] # (Auto) Baso # (Auto) Seg Neutrophils % Seg Neuts % (Manual) Lymphocytes % (Manual) Nucleated RBC % Seg Neutrophils # Seg Neutrophils # Man Lymphocytes # (Manual) Monocytes # (Manual) Eosinophils # (Manual) PT INR APTT D-Dimer Heparin Anti-Xa Level ABG pH 7.519 H POC ABG pCO2 POC ABG pO2 198.6 H ABG pO2 ABG HCO3 ABG O2 Saturation ABG Base Excess ABG Hemoglobin 10.3 L ABG Oxyhemoglobin 98.7 H ABG Sodium 133.6 L ABG Potassium 3.3 L ABG Chloride 93.0 L ABG Glucose 175 H Oxyhemoglobin Carboxyhemoglobin Sodium Potassium 3.4 L Chloride 92.5 L Carbon Dioxide 36 H BUN Creatinine 0.3 L Glucose 148 H POC Glucose 170 H Lactic Acid Calcium Magnesium Ferritin Total Bilirubin Direct Bilirubin AST ALT Alkaline Phosphatase Lactate Dehydrogenase C-Reactive Protein Total Protein Albumin Triglycerides Lipase Arterial Blood Glucose 175 H Arterial Blood Ionized Calcium Urine WBC (Auto) Coronavirus (PCR) SARS-CoV-2 IgG Ab Crossmatch 07/05/20 07/05/20 07/06/20 11:37 18:39 00:04 WBC RBC Hgb Hct MCV MCH MCHC RDW Lymph % (Auto) [place] % (Auto) Lymph # (Auto) [place] # (Auto) Baso # (Auto) Seg Neutrophils % Seg Neuts % (Manual) Lymphocytes % (Manual) Nucleated RBC % Seg Neutrophils # Seg Neutrophils # Man Lymphocytes # (Manual) Monocytes # (Manual) Eosinophils # (Manual) PT INR APTT D-Dimer Heparin Anti-Xa Level ABG pH POC ABG pCO2 POC ABG pO2 ABG pO2 ABG HCO3 ABG O2 Saturation ABG Base Excess ABG Hemoglobin ABG Oxyhemoglobin ABG Sodium ABG Potassium ABG Chloride ABG Glucose Oxyhemoglobin Carboxyhemoglobin Sodium Potassium Chloride Carbon Dioxide BUN Creatinine Glucose POC Glucose 195 H 200 H 222 H Lactic Acid Calcium Magnesium Ferritin Total Bilirubin Direct Bilirubin AST ALT Alkaline Phosphatase Lactate Dehydrogenase C-Reactive Protein Total Protein Albumin Triglycerides Lipase Arterial Blood Glucose Arterial Blood Ionized Calcium Urine WBC (Auto) Coronavirus (PCR) SARS-CoV-2 IgG Ab Crossmatch 07/06/20 07/06/20 07/06/20 05:25 06:52 06:52 WBC 15.8 H RBC 3.17 L Hgb 10.4 L Hct 31.5 L MCV 99 H MCH 33 H MCHC RDW 17.0 H Lymph % (Auto) [place] % (Auto) Lymph # (Auto) [place] # (Auto) Baso # (Auto) Seg Neutrophils % Seg Neuts % (Manual) Lymphocytes % (Manual) Nucleated RBC % Seg Neutrophils # Seg Neutrophils # Man Lymphocytes # (Manual) Monocytes # (Manual) Eosinophils # (Manual) PT INR APTT D-Dimer Heparin Anti-Xa Level ABG pH POC ABG pCO2 POC ABG pO2 ABG pO2 ABG HCO3 ABG O2 Saturation ABG Base Excess ABG Hemoglobin ABG Oxyhemoglobin ABG Sodium ABG Potassium ABG Chloride ABG Glucose Oxyhemoglobin Carboxyhemoglobin Sodium 135 L Potassium 3.4 L Chloride 91.9 L Carbon Dioxide 38 H BUN Creatinine 0.3 L Glucose 189 H POC Glucose 165 H Lactic Acid Calcium Magnesium Ferritin Total Bilirubin Direct Bilirubin AST ALT Alkaline Phosphatase Lactate Dehydrogenase C-Reactive Protein Total Protein Albumin Triglycerides Lipase Arterial Blood Glucose Arterial Blood Ionized Calcium Urine WBC (Auto) Coronavirus (PCR) SARS-CoV-2 IgG Ab Crossmatch 07/06/20 07/06/20 07/06/20 13:01 18:04 23:08 WBC RBC Hgb Hct MCV MCH MCHC RDW Lymph % (Auto) [place] % (Auto) Lymph # (Auto) [place] # (Auto) Baso # (Auto) Seg Neutrophils % Seg Neuts % (Manual) Lymphocytes % (Manual) Nucleated RBC % Seg Neutrophils # Seg Neutrophils # Man Lymphocytes # (Manual) Monocytes # (Manual) Eosinophils # (Manual) PT INR APTT D-Dimer Heparin Anti-Xa Level ABG pH POC ABG pCO2 POC ABG pO2 ABG pO2 ABG HCO3 ABG O2 Saturation ABG Base Excess ABG Hemoglobin ABG Oxyhemoglobin ABG Sodium ABG Potassium ABG Chloride ABG Glucose Oxyhemoglobin Carboxyhemoglobin Sodium Potassium Chloride Carbon Dioxide BUN Creatinine Glucose POC Glucose 195 H 169 H 173 H Lactic Acid Calcium Magnesium Ferritin Total Bilirubin Direct Bilirubin AST ALT Alkaline Phosphatase Lactate Dehydrogenase C-Reactive Protein Total Protein Albumin Triglycerides Lipase Arterial Blood Glucose Arterial Blood Ionized Calcium Urine WBC (Auto) Coronavirus (PCR) SARS-CoV-2 IgG Ab Crossmatch 07/07/20 07/07/20 07/07/20 05:35 05:35 05:39 WBC 17.6 H RBC 3.16 L Hgb 10.4 L Hct 31.5 L MCV 100 H MCH 33 H MCHC RDW 16.7 H Lymph % (Auto) 11.1 L [place] % (Auto) Lymph # (Auto) [place] # (Auto) 1.0 H Baso # (Auto) Seg Neutrophils % 83.0 H Seg Neuts % (Manual) Lymphocytes % (Manual) Nucleated RBC % Seg Neutrophils # 14.6 H Seg Neutrophils # Man Lymphocytes # (Manual) Monocytes # (Manual) Eosinophils # (Manual) PT INR APTT D-Dimer Heparin Anti-Xa Level ABG pH POC ABG pCO2 POC ABG pO2 ABG pO2 ABG HCO3 ABG O2 Saturation ABG Base Excess ABG Hemoglobin ABG Oxyhemoglobin ABG Sodium ABG Potassium ABG Chloride ABG Glucose Oxyhemoglobin Carboxyhemoglobin Sodium 135 L Potassium 3.4 L Chloride 94.3 L Carbon Dioxide 32 H BUN Creatinine 0.2 L Glucose 240 H POC Glucose 191 H Lactic Acid Calcium Magnesium Ferritin Total Bilirubin Direct Bilirubin AST ALT Alkaline Phosphatase Lactate Dehydrogenase C-Reactive Protein Total Protein Albumin Triglycerides Lipase Arterial Blood Glucose Arterial Blood Ionized Calcium Urine WBC (Auto) Coronavirus (PCR) SARS-CoV-2 IgG Ab Crossmatch 07/07/20 07/07/20 07/07/20 12:08 16:39 23:41 WBC RBC Hgb Hct MCV MCH MCHC RDW Lymph % (Auto) [place] % (Auto) Lymph # (Auto) [place] # (Auto) Baso # (Auto) Seg Neutrophils % Seg Neuts % (Manual) Lymphocytes % (Manual) Nucleated RBC % Seg Neutrophils # Seg Neutrophils # Man Lymphocytes # (Manual) Monocytes # (Manual) Eosinophils # (Manual) PT INR APTT D-Dimer Heparin Anti-Xa Level ABG pH POC ABG pCO2 POC ABG pO2 ABG pO2 ABG HCO3 ABG O2 Saturation ABG Base Excess ABG Hemoglobin ABG Oxyhemoglobin ABG Sodium ABG Potassium ABG Chloride ABG Glucose Oxyhemoglobin Carboxyhemoglobin Sodium Potassium Chloride Carbon Dioxide BUN Creatinine Glucose POC Glucose 248 H 209 H 231 H Lactic Acid Calcium Magnesium Ferritin Total Bilirubin Direct Bilirubin AST ALT Alkaline Phosphatase Lactate Dehydrogenase C-Reactive Protein Total Protein Albumin Triglycerides Lipase Arterial Blood Glucose Arterial Blood Ionized Calcium Urine WBC (Auto) Coronavirus (PCR) SARS-CoV-2 IgG Ab Crossmatch 07/08/20 07/08/20 07/08/20 04:58 04:58 05:38 WBC 21.0 H RBC 2.86 L Hgb 9.2 L Hct 28.6 L MCV 100 H MCH MCHC RDW 16.7 H Lymph % (Auto) [place] % (Auto) Lymph # (Auto) [place] # (Auto) Baso # (Auto) Seg Neutrophils % Seg Neuts % (Manual) 93.0 H Lymphocytes % (Manual) 3.0 L Nucleated RBC % Seg Neutrophils # Seg Neutrophils # Man 19.5 H Lymphocytes # (Manual) 0.6 L Monocytes # (Manual) Eosinophils # (Manual) PT INR APTT D-Dimer Heparin Anti-Xa Level ABG pH POC ABG pCO2 POC ABG pO2 ABG pO2 ABG HCO3 ABG O2 Saturation ABG Base Excess ABG Hemoglobin ABG Oxyhemoglobin ABG Sodium ABG Potassium ABG Chloride ABG Glucose Oxyhemoglobin Carboxyhemoglobin Sodium Potassium 3.0 L Chloride Carbon Dioxide BUN Creatinine 0.2 L Glucose 201 H POC Glucose 161 H Lactic Acid Calcium 7.9 L D Magnesium Ferritin Total Bilirubin Direct Bilirubin AST ALT Alkaline Phosphatase Lactate Dehydrogenase C-Reactive Protein Total Protein Albumin Triglycerides Lipase Arterial Blood Glucose Arterial Blood Ionized Calcium Urine WBC (Auto) Coronavirus (PCR) SARS-CoV-2 IgG Ab Crossmatch 07/08/20 07/08/20 07/08/20 12:19 16:26 Unknown WBC RBC Hgb Hct MCV MCH MCHC RDW Lymph % (Auto) [place] % (Auto) Lymph # (Auto) [place] # (Auto) Baso # (Auto) Seg Neutrophils % Seg Neuts % (Manual) Lymphocytes % (Manual) Nucleated RBC % Seg Neutrophils # Seg Neutrophils # Man Lymphocytes # (Manual) Monocytes # (Manual) Eosinophils # (Manual) PT INR APTT D-Dimer Heparin Anti-Xa Level ABG pH POC ABG pCO2 POC ABG pO2 ABG pO2 75.3 L ABG HCO3 34.3 H ABG O2 Saturation ABG Base Excess 8.7 H ABG Hemoglobin 10.2 L ABG Oxyhemoglobin ABG Sodium ABG Potassium ABG Chloride ABG Glucose Oxyhemoglobin 93.7 L Carboxyhemoglobin Sodium Potassium Chloride Carbon Dioxide BUN Creatinine Glucose POC Glucose 152 H 173 H Lactic Acid Calcium Magnesium Ferritin Total Bilirubin Direct Bilirubin AST ALT Alkaline Phosphatase Lactate Dehydrogenase C-Reactive Protein Total Protein Albumin Triglycerides Lipase Arterial Blood Glucose Arterial Blood Ionized Calcium Urine WBC (Auto) Coronavirus (PCR) SARS-CoV-2 IgG Ab Crossmatch 07/09/20 07/09/20 07/09/20 00:01 06:00 11:55 WBC RBC Hgb Hct MCV MCH MCHC RDW Lymph % (Auto) [place] % (Auto) Lymph # (Auto) [place] # (Auto) Baso # (Auto) Seg Neutrophils % Seg Neuts % (Manual) Lymphocytes % (Manual) Nucleated RBC % Seg Neutrophils # Seg Neutrophils # Man Lymphocytes # (Manual) Monocytes # (Manual) Eosinophils # (Manual) PT INR APTT D-Dimer Heparin Anti-Xa Level ABG pH POC ABG pCO2 POC ABG pO2 ABG pO2 ABG HCO3 ABG O2 Saturation ABG Base Excess ABG Hemoglobin ABG Oxyhemoglobin ABG Sodium ABG Potassium ABG Chloride ABG Glucose Oxyhemoglobin Carboxyhemoglobin Sodium Potassium Chloride Carbon Dioxide BUN Creatinine Glucose POC Glucose 207 H 141 H 228 H Lactic Acid Calcium Magnesium Ferritin Total Bilirubin Direct Bilirubin AST ALT Alkaline Phosphatase Lactate Dehydrogenase C-Reactive Protein Total Protein Albumin Triglycerides Lipase Arterial Blood Glucose Arterial Blood Ionized Calcium Urine WBC (Auto) Coronavirus (PCR) SARS-CoV-2 IgG Ab Crossmatch 07/09/20 07/09/20 07/09/20 16:47 23:53 Unknown WBC RBC Hgb Hct MCV MCH MCHC RDW Lymph % (Auto) [place] % (Auto) Lymph # (Auto) [place] # (Auto) Baso # (Auto) Seg Neutrophils % Seg Neuts % (Manual) Lymphocytes % (Manual) Nucleated RBC % Seg Neutrophils # Seg Neutrophils # Man Lymphocytes # (Manual) Monocytes # (Manual) Eosinophils # (Manual) PT INR APTT D-Dimer Heparin Anti-Xa Level ABG pH POC ABG pCO2 POC ABG pO2 ABG pO2 ABG HCO3 ABG O2 Saturation ABG Base Excess ABG Hemoglobin ABG Oxyhemoglobin ABG Sodium ABG Potassium ABG Chloride ABG Glucose Oxyhemoglobin Carboxyhemoglobin Sodium 132 L Potassium Chloride 92.7 L Carbon Dioxide 35 H BUN Creatinine 0.2 L Glucose 234 H POC Glucose 136 H 219 H Lactic Acid Calcium Magnesium Ferritin Total Bilirubin Direct Bilirubin AST ALT Alkaline Phosphatase Lactate Dehydrogenase C-Reactive Protein Total Protein Albumin Triglycerides Lipase Arterial Blood Glucose Arterial Blood Ionized Calcium Urine WBC (Auto) Coronavirus (PCR) SARS-CoV-2 IgG Ab Crossmatch 07/10/20 07/10/20 07/10/20 05:20 12:05 18:38 WBC RBC Hgb Hct MCV MCH MCHC RDW Lymph % (Auto) [place] % (Auto) Lymph # (Auto) [place] # (Auto) Baso # (Auto) Seg Neutrophils % Seg Neuts % (Manual) Lymphocytes % (Manual) Nucleated RBC % Seg Neutrophils # Seg Neutrophils # Man Lymphocytes # (Manual) Monocytes # (Manual) Eosinophils # (Manual) PT INR APTT D-Dimer Heparin Anti-Xa Level ABG pH POC ABG pCO2 POC ABG pO2 ABG pO2 ABG HCO3 ABG O2 Saturation ABG Base Excess ABG Hemoglobin ABG Oxyhemoglobin ABG Sodium ABG Potassium ABG Chloride ABG Glucose Oxyhemoglobin Carboxyhemoglobin Sodium Potassium Chloride Carbon Dioxide BUN Creatinine Glucose POC Glucose 221 H 174 H 152 H Lactic Acid Calcium Magnesium Ferritin Total Bilirubin Direct Bilirubin AST ALT Alkaline Phosphatase Lactate Dehydrogenase C-Reactive Protein Total Protein Albumin Triglycerides Lipase Arterial Blood Glucose Arterial Blood Ionized Calcium Urine WBC (Auto) Coronavirus (PCR) SARS-CoV-2 IgG Ab Crossmatch 07/11/20 07/11/20 07/11/20 00:16 05:42 08:13 WBC 11.9 H RBC 3.13 L Hgb 10.2 L Hct 31.2 L MCV 100 H MCH 33 H MCHC RDW 16.4 H Lymph % (Auto) [place] % (Auto) 9.3 H Lymph # (Auto) [place] # (Auto) 1.1 H Baso # (Auto) Seg Neutrophils % 72.7 H Seg Neuts % (Manual) Lymphocytes % (Manual) Nucleated RBC % Seg Neutrophils # 8.7 H Seg Neutrophils # Man Lymphocytes # (Manual) Monocytes # (Manual) Eosinophils # (Manual) PT INR APTT D-Dimer Heparin Anti-Xa Level ABG pH POC ABG pCO2 POC ABG pO2 ABG pO2 ABG HCO3 ABG O2 Saturation ABG Base Excess ABG Hemoglobin ABG Oxyhemoglobin ABG Sodium ABG Potassium ABG Chloride ABG Glucose Oxyhemoglobin Carboxyhemoglobin Sodium Potassium Chloride Carbon Dioxide BUN Creatinine Glucose POC Glucose 170 H 186 H Lactic Acid Calcium Magnesium Ferritin Total Bilirubin Direct Bilirubin AST ALT Alkaline Phosphatase Lactate Dehydrogenase C-Reactive Protein Total Protein Albumin Triglycerides Lipase Arterial Blood Glucose Arterial Blood Ionized Calcium Urine WBC (Auto) Coronavirus (PCR) SARS-CoV-2 IgG Ab Crossmatch 07/11/20 07/11/20 07/11/20 08:13 11:35 18:07 WBC RBC Hgb Hct MCV MCH MCHC RDW Lymph % (Auto) [place] % (Auto) Lymph # (Auto) [place] # (Auto) Baso # (Auto) Seg Neutrophils % Seg Neuts % (Manual) Lymphocytes % (Manual) Nucleated RBC % Seg Neutrophils # Seg Neutrophils # Man Lymphocytes # (Manual) Monocytes # (Manual) Eosinophils # (Manual) PT INR APTT D-Dimer Heparin Anti-Xa Level ABG pH POC ABG pCO2 POC ABG pO2 ABG pO2 ABG HCO3 ABG O2 Saturation ABG Base Excess ABG Hemoglobin ABG Oxyhemoglobin ABG Sodium ABG Potassium ABG Chloride ABG Glucose Oxyhemoglobin Carboxyhemoglobin Sodium 135 L Potassium Chloride 92.8 L Carbon Dioxide 38 H BUN Creatinine 0.2 L Glucose 132 H POC Glucose 129 H 156 H Lactic Acid Calcium Magnesium Ferritin Total Bilirubin Direct Bilirubin AST ALT Alkaline Phosphatase Lactate Dehydrogenase C-Reactive Protein Total Protein Albumin Triglycerides Lipase Arterial Blood Glucose Arterial Blood Ionized Calcium Urine WBC (Auto) Coronavirus (PCR) SARS-CoV-2 IgG Ab Crossmatch 07/11/20 07/11/20 07/12/20 18:36 23:18 05:28 WBC RBC Hgb Hct MCV MCH MCHC RDW Lymph % (Auto) [place] % (Auto) Lymph # (Auto) [place] # (Auto) Baso # (Auto) Seg Neutrophils % Seg Neuts % (Manual) Lymphocytes % (Manual) Nucleated RBC % Seg Neutrophils # Seg Neutrophils # Man Lymphocytes # (Manual) Monocytes # (Manual) Eosinophils # (Manual) PT INR APTT D-Dimer Heparin Anti-Xa Level ABG pH POC ABG pCO2 POC ABG pO2 70.9 L ABG pO2 ABG HCO3 ABG O2 Saturation ABG Base Excess ABG Hemoglobin 10.8 L ABG Oxyhemoglobin 92.5 L ABG Sodium 131.8 L ABG Potassium 3.2 L ABG Chloride 91.0 L ABG Glucose 181 H Oxyhemoglobin Carboxyhemoglobin Sodium Potassium Chloride Carbon Dioxide BUN Creatinine Glucose POC Glucose 189 H 190 H Lactic Acid Calcium Magnesium Ferritin Total Bilirubin Direct Bilirubin AST ALT Alkaline Phosphatase Lactate Dehydrogenase C-Reactive Protein Total Protein Albumin Triglycerides Lipase Arterial Blood Glucose 181 H Arterial Blood Ionized Calcium Urine WBC (Auto) Coronavirus (PCR) SARS-CoV-2 IgG Ab Crossmatch 07/12/20 07/12/20 07/12/20 11:33 17:45 23:59 WBC RBC Hgb Hct MCV MCH MCHC RDW Lymph % (Auto) [place] % (Auto) Lymph # (Auto) [place] # (Auto) Baso # (Auto) Seg Neutrophils % Seg Neuts % (Manual) Lymphocytes % (Manual) Nucleated RBC % Seg Neutrophils # Seg Neutrophils # Man Lymphocytes # (Manual) Monocytes # (Manual) Eosinophils # (Manual) PT INR APTT D-Dimer Heparin Anti-Xa Level ABG pH POC ABG pCO2 POC ABG pO2 ABG pO2 ABG HCO3 ABG O2 Saturation ABG Base Excess ABG Hemoglobin ABG Oxyhemoglobin ABG Sodium ABG Potassium ABG Chloride ABG Glucose Oxyhemoglobin Carboxyhemoglobin Sodium Potassium Chloride Carbon Dioxide BUN Creatinine Glucose POC Glucose 151 H 211 H 169 H Lactic Acid Calcium Magnesium Ferritin Total Bilirubin Direct Bilirubin AST ALT Alkaline Phosphatase Lactate Dehydrogenase C-Reactive Protein Total Protein Albumin Triglycerides Lipase Arterial Blood Glucose Arterial Blood Ionized Calcium Urine WBC (Auto) Coronavirus (PCR) SARS-CoV-2 IgG Ab Crossmatch 07/13/20 07/13/20 07/13/20 05:44 08:31 08:31 WBC 21.3 H RBC 2.92 L Hgb 9.7 L Hct 28.7 L MCV 98 H MCH 33 H MCHC RDW 16.8 H Lymph % (Auto) [place] % (Auto) Lymph # (Auto) [place] # (Auto) Baso # (Auto) Seg Neutrophils % Seg Neuts % (Manual) 96.0 H Lymphocytes % (Manual) 2.0 L Nucleated RBC % Seg Neutrophils # Seg Neutrophils # Man 20.4 H Lymphocytes # (Manual) 0.4 L Monocytes # (Manual) Eosinophils # (Manual) PT INR APTT D-Dimer Heparin Anti-Xa Level ABG pH POC ABG pCO2 POC ABG pO2 ABG pO2 ABG HCO3 ABG O2 Saturation ABG Base Excess ABG Hemoglobin ABG Oxyhemoglobin ABG Sodium ABG Potassium ABG Chloride ABG Glucose Oxyhemoglobin Carboxyhemoglobin Sodium Potassium 2.9 L* D Chloride 94.4 L Carbon Dioxide 37 H BUN Creatinine 0.2 L Glucose 166 H POC Glucose 122 H Lactic Acid Calcium Magnesium Ferritin Total Bilirubin Direct Bilirubin AST ALT Alkaline Phosphatase Lactate Dehydrogenase C-Reactive Protein Total Protein Albumin Triglycerides Lipase Arterial Blood Glucose Arterial Blood Ionized Calcium Urine WBC (Auto) Coronavirus (PCR) SARS-CoV-2 IgG Ab Crossmatch 07/13/20 07/13/20 07/13/20 11:54 13:52 17:40 WBC RBC Hgb Hct MCV MCH MCHC RDW Lymph % (Auto) [place] % (Auto) Lymph # (Auto) [place] # (Auto) Baso # (Auto) Seg Neutrophils % Seg Neuts % (Manual) Lymphocytes % (Manual) Nucleated RBC % Seg Neutrophils # Seg Neutrophils # Man Lymphocytes # (Manual) Monocytes # (Manual) Eosinophils # (Manual) PT INR APTT D-Dimer Heparin Anti-Xa Level ABG pH 7.477 H POC ABG pCO2 54.4 H POC ABG pO2 126.8 H ABG pO2 ABG HCO3 ABG O2 Saturation ABG Base Excess ABG Hemoglobin 11.5 L ABG Oxyhemoglobin ABG Sodium ABG Potassium 3.2 L ABG Chloride 92.0 L ABG Glucose 169 H Oxyhemoglobin Carboxyhemoglobin Sodium Potassium Chloride Carbon Dioxide BUN Creatinine Glucose POC Glucose 132 H 128 H Lactic Acid Calcium Magnesium Ferritin Total Bilirubin Direct Bilirubin AST ALT Alkaline Phosphatase Lactate Dehydrogenase C-Reactive Protein Total Protein Albumin Triglycerides Lipase Arterial Blood Glucose 169 H Arterial Blood Ionized Calcium Urine WBC (Auto) Coronavirus (PCR) SARS-CoV-2 IgG Ab Crossmatch 07/14/20 07/14/20 07/15/20 07:49 17:09 05:27 WBC RBC Hgb Hct MCV MCH MCHC RDW Lymph % (Auto) [place] % (Auto) Lymph # (Auto) [place] # (Auto) Baso # (Auto) Seg Neutrophils % Seg Neuts % (Manual) Lymphocytes % (Manual) Nucleated RBC % Seg Neutrophils # Seg Neutrophils # Man Lymphocytes # (Manual) Monocytes # (Manual) Eosinophils # (Manual) PT INR APTT D-Dimer Heparin Anti-Xa Level ABG pH POC ABG pCO2 POC ABG pO2 ABG pO2 ABG HCO3 ABG O2 Saturation ABG Base Excess ABG Hemoglobin ABG Oxyhemoglobin ABG Sodium ABG Potassium ABG Chloride ABG Glucose Oxyhemoglobin Carboxyhemoglobin Sodium Potassium 2.7 L* Chloride 94.0 L Carbon Dioxide 37 H BUN Creatinine 0.3 L Glucose 110 H POC Glucose 152 H 61 L Lactic Acid Calcium Magnesium Ferritin Total Bilirubin Direct Bilirubin AST ALT Alkaline Phosphatase Lactate Dehydrogenase C-Reactive Protein Total Protein Albumin Triglycerides Lipase Arterial Blood Glucose Arterial Blood Ionized Calcium Urine WBC (Auto) Coronavirus (PCR) SARS-CoV-2 IgG Ab Crossmatch 07/15/20 07/15/20 07/15/20 05:31 11:49 17:18 WBC RBC Hgb Hct MCV MCH MCHC RDW Lymph % (Auto) [place] % (Auto) Lymph # (Auto) [place] # (Auto) Baso # (Auto) Seg Neutrophils % Seg Neuts % (Manual) Lymphocytes % (Manual) Nucleated RBC % Seg Neutrophils # Seg Neutrophils # Man Lymphocytes # (Manual) Monocytes # (Manual) Eosinophils # (Manual) PT INR APTT D-Dimer Heparin Anti-Xa Level ABG pH POC ABG pCO2 POC ABG pO2 ABG pO2 ABG HCO3 ABG O2 Saturation ABG Base Excess ABG Hemoglobin ABG Oxyhemoglobin ABG Sodium ABG Potassium ABG Chloride ABG Glucose Oxyhemoglobin Carboxyhemoglobin Sodium Potassium 3.2 L Chloride 91.2 L Carbon Dioxide 33 H BUN Creatinine 0.3 L Glucose 139 H POC Glucose 148 H 196 H Lactic Acid Calcium Magnesium Ferritin Total Bilirubin Direct Bilirubin AST ALT Alkaline Phosphatase Lactate Dehydrogenase C-Reactive Protein Total Protein Albumin Triglycerides Lipase Arterial Blood Glucose Arterial Blood Ionized Calcium Urine WBC (Auto) Coronavirus (PCR) SARS-CoV-2 IgG Ab Crossmatch 07/15/20 07/16/20 07/16/20 23:08 05:18 05:19 WBC 11.3 H RBC 3.10 L Hgb 10.0 L Hct 30.3 L MCV 98 H MCH MCHC RDW 16.3 H Lymph % (Auto) [place] % (Auto) Lymph # (Auto) [place] # (Auto) Baso # (Auto) Seg Neutrophils % Seg Neuts % (Manual) Lymphocytes % (Manual) Nucleated RBC % Seg Neutrophils # Seg Neutrophils # Man Lymphocytes # (Manual) Monocytes # (Manual) Eosinophils # (Manual) PT INR APTT D-Dimer Heparin Anti-Xa Level ABG pH POC ABG pCO2 POC ABG pO2 ABG pO2 ABG HCO3 ABG O2 Saturation ABG Base Excess ABG Hemoglobin ABG Oxyhemoglobin ABG Sodium ABG Potassium ABG Chloride ABG Glucose Oxyhemoglobin Carboxyhemoglobin Sodium Potassium Chloride Carbon Dioxide BUN Creatinine Glucose POC Glucose 131 H 160 H Lactic Acid Calcium Magnesium Ferritin Total Bilirubin Direct Bilirubin AST ALT Alkaline Phosphatase Lactate Dehydrogenase C-Reactive Protein Total Protein Albumin Triglycerides Lipase Arterial Blood Glucose Arterial Blood Ionized Calcium Urine WBC (Auto) Coronavirus (PCR) SARS-CoV-2 IgG Ab Crossmatch 07/16/20 07/16/20 07/16/20 05:19 11:45 17:17 WBC RBC Hgb Hct MCV MCH MCHC RDW Lymph % (Auto) [place] % (Auto) Lymph # (Auto) [place] # (Auto) Baso # (Auto) Seg Neutrophils % Seg Neuts % (Manual) Lymphocytes % (Manual) Nucleated RBC % Seg Neutrophils # Seg Neutrophils # Man Lymphocytes # (Manual) Monocytes # (Manual) Eosinophils # (Manual) PT INR APTT D-Dimer Heparin Anti-Xa Level ABG pH POC ABG pCO2 POC ABG pO2 ABG pO2 ABG HCO3 ABG O2 Saturation ABG Base Excess ABG Hemoglobin ABG Oxyhemoglobin ABG Sodium ABG Potassium ABG Chloride ABG Glucose Oxyhemoglobin Carboxyhemoglobin Sodium 132 L Potassium 3.4 L Chloride 89.9 L Carbon Dioxide 39 H BUN Creatinine 0.3 L Glucose 174 H POC Glucose 169 H 143 H Lactic Acid Calcium Magnesium Ferritin Total Bilirubin Direct Bilirubin AST ALT Alkaline Phosphatase Lactate Dehydrogenase C-Reactive Protein Total Protein Albumin Triglycerides Lipase Arterial Blood Glucose Arterial Blood Ionized Calcium Urine WBC (Auto) Coronavirus (PCR) SARS-CoV-2 IgG Ab Crossmatch 07/16/20 07/17/20 07/17/20 23:54 05:32 11:26 WBC RBC Hgb Hct MCV MCH MCHC RDW Lymph % (Auto) [place] % (Auto) Lymph # (Auto) [place] # (Auto) Baso # (Auto) Seg Neutrophils % Seg Neuts % (Manual) Lymphocytes % (Manual) Nucleated RBC % Seg Neutrophils # Seg Neutrophils # Man Lymphocytes # (Manual) Monocytes # (Manual) Eosinophils # (Manual) PT INR APTT D-Dimer Heparin Anti-Xa Level ABG pH POC ABG pCO2 POC ABG pO2 ABG pO2 ABG HCO3 ABG O2 Saturation ABG Base Excess ABG Hemoglobin ABG Oxyhemoglobin ABG Sodium ABG Potassium ABG Chloride ABG Glucose Oxyhemoglobin Carboxyhemoglobin Sodium Potassium Chloride Carbon Dioxide BUN Creatinine Glucose POC Glucose 147 H 149 H 211 H Lactic Acid Calcium Magnesium Ferritin Total Bilirubin Direct Bilirubin AST ALT Alkaline Phosphatase Lactate Dehydrogenase C-Reactive Protein Total Protein Albumin Triglycerides Lipase Arterial Blood Glucose Arterial Blood Ionized Calcium Urine WBC (Auto) Coronavirus (PCR) SARS-CoV-2 IgG Ab Crossmatch 07/17/20 07/17/20 07/18/20 18:16 23:12 06:15 WBC RBC Hgb Hct MCV MCH MCHC RDW Lymph % (Auto) [place] % (Auto) Lymph # (Auto) [place] # (Auto) Baso # (Auto) Seg Neutrophils % Seg Neuts % (Manual) Lymphocytes % (Manual) Nucleated RBC % Seg Neutrophils # Seg Neutrophils # Man Lymphocytes # (Manual) Monocytes # (Manual) Eosinophils # (Manual) PT INR APTT D-Dimer Heparin Anti-Xa Level ABG pH POC ABG pCO2 POC ABG pO2 ABG pO2 ABG HCO3 ABG O2 Saturation ABG Base Excess ABG Hemoglobin ABG Oxyhemoglobin ABG Sodium ABG Potassium ABG Chloride ABG Glucose Oxyhemoglobin Carboxyhemoglobin Sodium Potassium Chloride Carbon Dioxide BUN Creatinine Glucose POC Glucose 161 H 136 H 108 H Lactic Acid Calcium Magnesium Ferritin Total Bilirubin Direct Bilirubin AST ALT Alkaline Phosphatase Lactate Dehydrogenase C-Reactive Protein Total Protein Albumin Triglycerides Lipase Arterial Blood Glucose Arterial Blood Ionized Calcium Urine WBC (Auto) Coronavirus (PCR) SARS-CoV-2 IgG Ab Crossmatch 07/18/20 07/18/20 07/18/20 08:47 08:47 11:50 WBC 17.7 H RBC 3.29 L Hgb 10.5 L Hct 31.8 L MCV 97 H MCH MCHC RDW 16.9 H Lymph % (Auto) [place] % (Auto) 8.6 H Lymph # (Auto) [place] # (Auto) 1.5 H Baso # (Auto) Seg Neutrophils % 74.6 H Seg Neuts % (Manual) Lymphocytes % (Manual) Nucleated RBC % Seg Neutrophils # 13.2 H Seg Neutrophils # Man Lymphocytes # (Manual) Monocytes # (Manual) Eosinophils # (Manual) PT INR APTT D-Dimer Heparin Anti-Xa Level ABG pH POC ABG pCO2 POC ABG pO2 ABG pO2 ABG HCO3 ABG O2 Saturation ABG Base Excess ABG Hemoglobin ABG Oxyhemoglobin ABG Sodium ABG Potassium ABG Chloride ABG Glucose Oxyhemoglobin Carboxyhemoglobin Sodium Potassium 2.8 L* Chloride 92.6 L Carbon Dioxide 40 H BUN Creatinine 0.3 L Glucose 177 H POC Glucose 178 H Lactic Acid Calcium Magnesium Ferritin Total Bilirubin Direct Bilirubin AST ALT Alkaline Phosphatase Lactate Dehydrogenase C-Reactive Protein Total Protein Albumin Triglycerides Lipase Arterial Blood Glucose Arterial Blood Ionized Calcium Urine WBC (Auto) Coronavirus (PCR) SARS-CoV-2 IgG Ab Crossmatch 07/18/20 07/18/20 07/19/20 17:18 23:33 05:22 WBC RBC Hgb Hct MCV MCH MCHC RDW Lymph % (Auto) [place] % (Auto) Lymph # (Auto) [place] # (Auto) Baso # (Auto) Seg Neutrophils % Seg Neuts % (Manual) Lymphocytes % (Manual) Nucleated RBC % Seg Neutrophils # Seg Neutrophils # Man Lymphocytes # (Manual) Monocytes # (Manual) Eosinophils # (Manual) PT INR APTT D-Dimer Heparin Anti-Xa Level ABG pH POC ABG pCO2 POC ABG pO2 ABG pO2 ABG HCO3 ABG O2 Saturation ABG Base Excess ABG Hemoglobin ABG Oxyhemoglobin ABG Sodium ABG Potassium ABG Chloride ABG Glucose Oxyhemoglobin Carboxyhemoglobin Sodium Potassium Chloride Carbon Dioxide BUN Creatinine Glucose POC Glucose 171 H 162 H 166 H Lactic Acid Calcium Magnesium Ferritin Total Bilirubin Direct Bilirubin AST ALT Alkaline Phosphatase Lactate Dehydrogenase C-Reactive Protein Total Protein Albumin Triglycerides Lipase Arterial Blood Glucose Arterial Blood Ionized Calcium Urine WBC (Auto) Coronavirus (PCR) SARS-CoV-2 IgG Ab Crossmatch 07/19/20 07/19/20 07/19/20 12:00 16:27 23:41 WBC RBC Hgb Hct MCV MCH MCHC RDW Lymph % (Auto) [place] % (Auto) Lymph # (Auto) [place] # (Auto) Baso # (Auto) Seg Neutrophils % Seg Neuts % (Manual) Lymphocytes % (Manual) Nucleated RBC % Seg Neutrophils # Seg Neutrophils # Man Lymphocytes # (Manual) Monocytes # (Manual) Eosinophils # (Manual) PT INR APTT D-Dimer Heparin Anti-Xa Level ABG pH POC ABG pCO2 POC ABG pO2 ABG pO2 ABG HCO3 ABG O2 Saturation ABG Base Excess ABG Hemoglobin ABG Oxyhemoglobin ABG Sodium ABG Potassium ABG Chloride ABG Glucose Oxyhemoglobin Carboxyhemoglobin Sodium Potassium Chloride Carbon Dioxide BUN Creatinine Glucose POC Glucose 201 H 205 H 106 H Lactic Acid Calcium Magnesium Ferritin Total Bilirubin Direct Bilirubin AST ALT Alkaline Phosphatase Lactate Dehydrogenase C-Reactive Protein Total Protein Albumin Triglycerides Lipase Arterial Blood Glucose Arterial Blood Ionized Calcium Urine WBC (Auto) Coronavirus (PCR) SARS-CoV-2 IgG Ab Crossmatch 01/06/2807/20/20 07/20/20 05:28 11:18 17:30 WBC RBC Hgb Hct MCV MCH MCHC RDW Lymph % (Auto) [place] % (Auto) Lymph # (Auto) [place] # (Auto) Baso # (Auto) Seg Neutrophils % Seg Neuts % (Manual) Lymphocytes % (Manual) Nucleated RBC % Seg Neutrophils # Seg Neutrophils # Man Lymphocytes # (Manual) Monocytes # (Manual) Eosinophils # (Manual) PT INR APTT D-Dimer Heparin Anti-Xa Level ABG pH POC ABG pCO2 POC ABG pO2 ABG pO2 ABG HCO3 ABG O2 Saturation ABG Base Excess ABG Hemoglobin ABG Oxyhemoglobin ABG Sodium ABG Potassium ABG Chloride ABG Glucose Oxyhemoglobin Carboxyhemoglobin Sodium Potassium Chloride Carbon Dioxide BUN Creatinine Glucose POC Glucose 130 H 195 H 141 H Lactic Acid Calcium Magnesium Ferritin Total Bilirubin Direct Bilirubin AST ALT Alkaline Phosphatase Lactate Dehydrogenase C-Reactive Protein Total Protein Albumin Triglycerides Lipase Arterial Blood Glucose Arterial Blood Ionized Calcium Urine WBC (Auto) Coronavirus (PCR) SARS-CoV-2 IgG Ab Crossmatch 07/20/20 07/21/20 07/21/20 23:26 05:03 17:03 WBC RBC Hgb Hct MCV MCH MCHC RDW Lymph % (Auto) [place] % (Auto) Lymph # (Auto) [place] # (Auto) Baso # (Auto) Seg Neutrophils % Seg Neuts % (Manual) Lymphocytes % (Manual) Nucleated RBC % Seg Neutrophils # Seg Neutrophils # Man Lymphocytes # (Manual) Monocytes # (Manual) Eosinophils # (Manual) PT INR APTT D-Dimer Heparin Anti-Xa Level ABG pH POC ABG pCO2 POC ABG pO2 ABG pO2 ABG HCO3 ABG O2 Saturation ABG Base Excess ABG Hemoglobin ABG Oxyhemoglobin ABG Sodium ABG Potassium ABG Chloride ABG Glucose Oxyhemoglobin Carboxyhemoglobin Sodium Potassium Chloride Carbon Dioxide BUN Creatinine Glucose POC Glucose 116 H 142 H 181 H Lactic Acid Calcium Magnesium Ferritin Total Bilirubin Direct Bilirubin AST ALT Alkaline Phosphatase Lactate Dehydrogenase C-Reactive Protein Total Protein Albumin Triglycerides Lipase Arterial Blood Glucose Arterial Blood Ionized Calcium Urine WBC (Auto) Coronavirus (PCR) SARS-CoV-2 IgG Ab Crossmatch 07/21/20 07/22/20 07/22/20 23:51 06:09 11:40 WBC RBC Hgb Hct MCV MCH MCHC RDW Lymph % (Auto) [place] % (Auto) Lymph # (Auto) [place] # (Auto) Baso # (Auto) Seg Neutrophils % Seg Neuts % (Manual) Lymphocytes % (Manual) Nucleated RBC % Seg Neutrophils # Seg Neutrophils # Man Lymphocytes # (Manual) Monocytes # (Manual) Eosinophils # (Manual) PT INR APTT D-Dimer Heparin Anti-Xa Level ABG pH POC ABG pCO2 POC ABG pO2 ABG pO2 ABG HCO3 ABG O2 Saturation ABG Base Excess ABG Hemoglobin ABG Oxyhemoglobin ABG Sodium ABG Potassium ABG Chloride ABG Glucose Oxyhemoglobin Carboxyhemoglobin Sodium Potassium Chloride Carbon Dioxide BUN Creatinine Glucose POC Glucose 127 H 136 H 160 H Lactic Acid Calcium Magnesium Ferritin Total Bilirubin Direct Bilirubin AST ALT Alkaline Phosphatase Lactate Dehydrogenase C-Reactive Protein Total Protein Albumin Triglycerides Lipase Arterial Blood Glucose Arterial Blood Ionized Calcium Urine WBC (Auto) Coronavirus (PCR) SARS-CoV-2 IgG Ab Crossmatch 07/22/20 07/22/20 07/23/20 18:14 23:25 05:58 WBC 12.2 H RBC 3.44 L Hgb 10.9 L Hct 33.9 L MCV 99 H MCH MCHC RDW 16.9 H Lymph % (Auto) [place] % (Auto) 10.0 H Lymph # (Auto) [place] # (Auto) 1.2 H Baso # (Auto) Seg Neutrophils % Seg Neuts % (Manual) Lymphocytes % (Manual) Nucleated RBC % Seg Neutrophils # 8.3 H Seg Neutrophils # Man Lymphocytes # (Manual) Monocytes # (Manual) Eosinophils # (Manual) PT INR APTT D-Dimer Heparin Anti-Xa Level ABG pH POC ABG pCO2 POC ABG pO2 ABG pO2 ABG HCO3 ABG O2 Saturation ABG Base Excess ABG Hemoglobin ABG Oxyhemoglobin ABG Sodium ABG Potassium ABG Chloride ABG Glucose Oxyhemoglobin Carboxyhemoglobin Sodium Potassium Chloride Carbon Dioxide BUN Creatinine Glucose POC Glucose 189 H 164 H Lactic Acid Calcium Magnesium Ferritin Total Bilirubin Direct Bilirubin AST ALT Alkaline Phosphatase Lactate Dehydrogenase C-Reactive Protein Total Protein Albumin Triglycerides Lipase Arterial Blood Glucose Arterial Blood Ionized Calcium Urine WBC (Auto) Coronavirus (PCR) SARS-CoV-2 IgG Ab Crossmatch 07/23/20 07/23/20 07/23/20 05:58 06:02 12:14 WBC RBC Hgb Hct MCV MCH MCHC RDW Lymph % (Auto) [place] % (Auto) Lymph # (Auto) [place] # (Auto) Baso # (Auto) Seg Neutrophils % Seg Neuts % (Manual) Lymphocytes % (Manual) Nucleated RBC % Seg Neutrophils # Seg Neutrophils # Man Lymphocytes # (Manual) Monocytes # (Manual) Eosinophils # (Manual) PT INR APTT D-Dimer Heparin Anti-Xa Level ABG pH POC ABG pCO2 POC ABG pO2 ABG pO2 ABG HCO3 ABG O2 Saturation ABG Base Excess ABG Hemoglobin ABG Oxyhemoglobin ABG Sodium ABG Potassium ABG Chloride ABG Glucose Oxyhemoglobin Carboxyhemoglobin Sodium Potassium 2.9 L* Chloride 94.9 L Carbon Dioxide 33 H D BUN Creatinine 0.4 L Glucose 129 H POC Glucose 111 H 142 H Lactic Acid Calcium Magnesium Ferritin Total Bilirubin Direct Bilirubin AST ALT Alkaline Phosphatase Lactate Dehydrogenase C-Reactive Protein Total Protein Albumin 3.5 L Triglycerides Lipase Arterial Blood Glucose Arterial Blood Ionized Calcium Urine WBC (Auto) Coronavirus (PCR) SARS-CoV-2 IgG Ab Crossmatch 07/23/20 07/23/20 07/24/20 17:20 23:39 05:05 WBC 13.3 H RBC 3.40 L Hgb 10.8 L Hct 33.4 L MCV 98 H MCH MCHC RDW 16.7 H Lymph % (Auto) [place] % (Auto) 10.0 H Lymph # (Auto) [place] # (Auto) 1.3 H Baso # (Auto) Seg Neutrophils % Seg Neuts % (Manual) Lymphocytes % (Manual) Nucleated RBC % Seg Neutrophils # 9.0 H Seg Neutrophils # Man Lymphocytes # (Manual) Monocytes # (Manual) Eosinophils # (Manual) PT INR APTT D-Dimer Heparin Anti-Xa Level ABG pH POC ABG pCO2 POC ABG pO2 ABG pO2 ABG HCO3 ABG O2 Saturation ABG Base Excess ABG Hemoglobin ABG Oxyhemoglobin ABG Sodium ABG Potassium ABG Chloride ABG Glucose Oxyhemoglobin Carboxyhemoglobin Sodium Potassium Chloride Carbon Dioxide BUN Creatinine Glucose POC Glucose 150 H 120 H Lactic Acid Calcium Magnesium Ferritin Total Bilirubin Direct Bilirubin AST ALT Alkaline Phosphatase Lactate Dehydrogenase C-Reactive Protein Total Protein Albumin Triglycerides Lipase Arterial Blood Glucose Arterial Blood Ionized Calcium Urine WBC (Auto) Coronavirus (PCR) SARS-CoV-2 IgG Ab Crossmatch 07/24/20 07/24/20 07/24/20 05:05 05:39 11:30 WBC RBC Hgb Hct MCV MCH MCHC RDW Lymph % (Auto) [place] % (Auto) Lymph # (Auto) [place] # (Auto) Baso # (Auto) Seg Neutrophils % Seg Neuts % (Manual) Lymphocytes % (Manual) Nucleated RBC % Seg Neutrophils # Seg Neutrophils # Man Lymphocytes # (Manual) Monocytes # (Manual) Eosinophils # (Manual) PT INR APTT D-Dimer Heparin Anti-Xa Level ABG pH POC ABG pCO2 POC ABG pO2 ABG pO2 ABG HCO3 ABG O2 Saturation ABG Base Excess ABG Hemoglobin ABG Oxyhemoglobin ABG Sodium ABG Potassium ABG Chloride ABG Glucose Oxyhemoglobin Carboxyhemoglobin Sodium Potassium Chloride 97.4 L Carbon Dioxide BUN Creatinine 0.3 L Glucose 111 H POC Glucose 118 H 160 H Lactic Acid Calcium Magnesium Ferritin Total Bilirubin Direct Bilirubin AST ALT Alkaline Phosphatase Lactate Dehydrogenase C-Reactive Protein Total Protein Albumin Triglycerides Lipase Arterial Blood Glucose Arterial Blood Ionized Calcium Urine WBC (Auto) Coronavirus (PCR) SARS-CoV-2 IgG Ab Crossmatch Chest x-ray: image reviewed (no PTX) Allied health notes reviewed: nursing
--- NOTE | 2020-07-24 18:18 | Progress Note ---
Assessment and Plan Assessment and plan: Positive COVID-19 test; 05/10/2020 Negative COVID-19 test; 06/30/2020 --Acute hypoxemic respiratory failure;on high flow nasal cannula oxygen Status post extubation, high flow oxygen and BiPAP ,wean as tolerated, supportive care Pulmonary critical l care following --Pneumothorax status post right chest tube Chest tube removed yesterday 07/23/2020 Post removal chest x-ray no pneumothorax No acute findings, patient is requiring high flow oxygen Wean as tolerated --Severe hypokalemia; potassium 2.9/resolved Monitor electrolytes, adjust management as needed --Sinus tachycardia: Significantly improved --Severe COVID-19 bilateral pneumonia Coronavirus protocol: IV steroid therapy, completed remdesivir, isolation precautions, contact precautions, prone positioning while in bed, pulmonary toilet. ID following SARS CoV-2 IgG positive patient is NOT a candidate for convalescent plasma --Elevated D-dimers/hyper coag state; Empiric anticoagulation with full dose Lovenox Closely monitor --Pseudomonas bacteremia; ID following, Continue cefepime --Severe sepsis/septic shock, due to COVID 19 PNA cont pressors as needed -- Acute kidney injury (SEN) , likely vasomotor nephropathy Resolved, IV fluids, avoid nephrotoxins --Acute on chronic anemia Guaiac test positive, GI evaluation PPIs, Continue to monitor -- Elevated liver function tests Suspected secondary to alcoholic liver disease. Supportive care, alcohol cessation, patient counseled. --Colonic distention GI evaluated colonic distention resolved recommend stool softeners Serial abdominal x-rays Monitor electrolytes and replete -- DVT prophylaxis On therapeutic Lovenox Closely monitor the patient and adjust management as needed Chest tube removed yesterday Patient feels better no new complaints Remains on high flow oxygen DC planning per case management Consults and recommendations noted and appreciated Brief history and hospital course; 50 YO Male with Obesity, ETOH Dependence presents to ED for evaluation. Patient states that he has experienced shortness of breath, generalized weakness, fatigue, malaise, body aches, decreased exercise tolerance over the past 5 days with persistently worsening symptoms over the same timeframe. EMS was notified and upon arrival the patient was found to be in distress with a pulse oximetry of 76% on room air as well as fever to 103 F. Patient was placed on supplemental oxygen and subsequently transported to [facility] for further care and evaluation. Patient seen and evaluated in the emergency department. All lab and imaging studies reviewed. Patient underwent chest x-ray and was found to have bilateral pneumonia. Patient also found to have a pulse oximetry of 86% on 4 L nasal cannula. Patient initiated on a high flow submental oxygen with improvement of pulse oximetry. Patient admitted to medical floor and initiated on pneumonia protocol as well as COVID-19 protocol. Patient also found to have acute kidney injury as well as elevated liver function test suspected secondary to alcohol dependence. Patient reports being diagnosed with coronavirus 2 days ago. No prior admission for review. 06/16/2020. Patient currently on mechanical ventilation with AC mode rate 30, tidal volume 500, FiO2 70% and PEEP of 16. Continue anticoagulation with Lovenox 110 milligrams subcu every 12 hours. Wean sedation of fentanyl/Versed as needed. Currently with IV steroids of Solu-Medrol 40 mg IV every 12 hours. Patient will likely need tracheostomy per pulmonary recommendations. Continue pressors to maintain MAP > 65. 06/17/2020. Patient currently on mechanical ventilation with AC mode rate 30, tidal volume 500, FiO2 65% and PEEP of 16. Continue anticoagulation with Lovenox 110 milligrams subcu every 12 hours. Wean sedation of fentanyl/Versed as needed. Currently with IV steroids of Solu-Medrol 40 mg IV every 12 hours. Patient will likely need tracheostomy per pulmonary recommendations. 06/18/2020. Patient currently on mechanical ventilation with AC mode rate 30, tidal volume 500, FiO2 70% and PEEP of 16. Continue Lovenox for anticoagulation and fentanyl/Versed for sedation. Wean steroids per pulmonary. CIWA protocol initiated for history of EtOH dependence 06/19/2020. Patient currently on mechanical ventilation with AC mode rate 30, tidal volume 500, FiO2 60% and PEEP of 16. Wean FiO2 as tolerated per protocol. Continue Lovenox for anticoagulation and fentanyl/Versed for sedation. Wean steroids per pulmonary. CIWA protocol initiated for history of EtOH dependence 06/20/2020. Patient currently on mechanical ventilation with AC mode rate 30, tidal volume 500, FiO2 60% and PEEP of 16. Wean FiO2 as tolerated, SBT per protocol. Continue Lovenox for anticoagulation and fentanyl/Versed for sedation. Wean steroids per pulmonary. Continue pressors to maintain MAP > 65 mmHg. Patient remains on ETT. Consider tracheostomy placement once oxygenation is better per pulmonary. CIWA protocol initiated for history of EtOH dependence. 06/21/2020. Patient with a small apical pneumothorax discovered yesterday. General surgery consulted and consider placing chest tube. Follow-up serial chest x-ray patient currently on mechanical ventilation with AC mode rate 30, tidal volume 500, FiO2 60% and PEEP of 16. Wean FiO2 as tolerated, SBT per pro tocol. Continue Lovenox for anticoagulation and fentanyl/Versed for sedation. Wean steroids per pulmonary. Continue pressors to maintain MAP > 65 mmHg. Patient remains on ETT. Consider tracheostomy placement once oxygenation is better per pulmonary. CIWA protocol initiated for history of EtOH dependence. 06/22. Status post right chest tube placement yesterday. Remains mechanically ventilated on pressors. Examination today shows slightly distended abdomen. KUB ordered. Awaiting stool guaiac. Plan to get a GI evaluation. 06/23. Has colonic distention on the x-ray. Discussed with GI-advised stool softeners for now and close monitoring. No indication for colonic decompression at this time. Guaiac test is positive. No emergent indication for endoscopy at this point as per GI. Continue to monitor hemoglobin. 06/24. Remains intubated. On pressors. GI following for positive guaiac stool and anemia, and colonic distention. 06/25. Repeat abdominal xray ordered. Remains on mechanical ventilation. 06/26. Abdominal xray - resolved colonic distension. Mechanically ventilated. 06/27. Plan for trach and PEG. 06/28: Awaiting trach and Peg. S\ome Bm REPORTED, will continue to monitor 06/29: Resume care, patient remains on ventilator support, waiting on trach and PEG placement. BM reported by the RN, continue to monitor. 06/30: Unable to wean off from vent, patient will need trach and PEG. Continue supportive care, tolerating tube feed. Monitor CBC and BMP 07/01: Continue mechanical ventilation, tube feeding as tolerated. Sedation as needed per mechanical ventilation protocol. Waiting on trach and PEG placement. 07/02: Continue current management, tube feeding, monitor CBC and BMP. Need trach and PEG-waiting on scheduling. Pulmonary critical care following. 07/03: wean off vent as tolerated. follow clinically. need trach and PEG 07/04: unable to wean. CT head ordered to assess for any changes but too unstable to do the test. need trach and PEG. 07/05: plan for trach/peg - GS following. off pressor - on midodrine. renal fu nction stable. intubated, but alert and can follow minor commend. discussed with daughter by phone. 07/06/2020; Dr. Márquez discussed with patient's daughter about trach but the daughter needs time to think about it. Patient was intubated and alert, FiO2 40%. 07/07/2020; patient was intubated and alert, FiO2 40%. Patient was diaphoretic, tachycardic, and EKG was done which was abnormal for me. I called voice and data technician Dr Louis saw the EKG and said it is normal EKG, and the findings are abnormal. 07/08/2020; no significant change, patient is intubated and alert. 2: Patient continues on current management. Pulmonary recommending trach and PEG awaiting patient's decision on this. Will check intermittent labs 07/11: Ordered CT still pending. Patient was agitated at night. Appears to have calmed down. Will repeat labs today. 07/12: Continue supportive care, awaiting CPAP trial. discussed with pulmonary. Obtain labs today. Trach and Peg planned 07/13: Continues to current management, PLAN FOR Trach and PEG on Sunday if patient is not able to liberated from the ventilator, Continue to monitor Fever curve and repeat Sepsis work up if persistent fever 07/14: Now extubated, continue to work up. 07/15: Clinical stable for transfer to [facility], still with fever and now showing bactermia. Continue Abx per ID. monitor fever 07/16: Continue supportive care. MONITOR FEVER CURVE, Adjust antibiotics as tolerated 07/17: Chest tube remains in place. More lethargic, Requested BIPAP to bedside, Chest tube to be discontinued, Awaiting Pysch input. 07/18: Chest tube remains in place repeat chest x-ray shows persistent bilateral opacity with mild improvement. Continue nebulizer treatments. Hypokalemia also noted will replace. Pulmonary and surgical input noted 07/19: Patient is a 50-year-old male admitted with shortness of breath ended up on mechanical ventilation noted to have pneumothorax has a chest tube in place. Has been successfully extubated but remains with delirium secondary to medical condition and also mild to moderate respiratory distress on Venturi mask. Continue weaning attempts. Patient still with chest tube. Continue serial x- rays. Will discuss with case management about possible LTAC placement. Blood cultures are currently returning Pseudomonas species. ID is following. 07/20/2020; patient continues to feel better, high flow oxygen and BiPAP Chest tube in place, continue current management, pulmonary surgery following 07/21/2020:Patient remains on High flow o2 07/22/2020; patient remains on high flow oxygen 8 L 100% O2 sat 93% Case management checking for LTAC placement 07/23/2020; patient remains on high flow oxygen, wean oxygen as tolerated, severe hypokalemia Replenish per protocol monitor levels 07/24/2020; patient had chest tube removal yesterday 07/23/2019 and, post removal chest x-ray no pneumothorax no acute abnormalities Patient feels slightly better continues to require high flow oxygen Wean as tolerated, physical and occupational therapy, DC planning The high probability of a clinically significant, sudden or life threatening deterioration of the [respiratory] system(s) required my full and direct attention, intervention and personal management. The aggregate critical care time was [35] minutes. This time is in addition to time spent performing reported procedures but includes the following: [x] Data Review and interpretation [x] Patient assessment and monitoring of vital signs [x] Documentation [x] Medication orders and management History Interval history: I have seen and examined the patient at the bedside this morning in ICU Patient's chart and medications reviewed. Chest tube was removed yesterday, post removal chest x-ray no pneumothorax Patient feels slightly better Remains on high flow oxygen Patient denies chest pain or shortness of breath Vital signs noted Hospitalist Physical - Constitutional Vitals: Temp Pulse Resp BP Pulse Ox 98 F 114 H 29 H 118/79 95 07/24/20 16:00 07/24/20 17:00 07/24/20 17:00 07/24/20 17:00 07/24/20 17:20 General appearance: Present: mild distress, well-nourished, other (On nasal cannula high flow oxygen 25 to 30 L) - EENT Eyes: Present: PERRL, EOM intact - Neck Neck: Present: supple, normal ROM - Respiratory Respiratory effort: normal Respiratory: bilateral: diminished, negative: rales, rhonchi, wheezing - Cardiovascular Rhythm: regular Heart Sounds: Present: S1 & S2 - Extremities Extremities: no ischemia, No edema - Abdominal General gastrointestinal: soft, non-tender, non-distended, normal bowel sounds - Integumentary Integumentary: Present: clear, warm - Psychiatric Psychiatric: appropriate mood/affect, cooperative - Neurologic Neurologic: CNII-XII intact, moves all extremities HEART Score - HEART Score Troponin: Troponin T 0.015 ng/mL (0.00-0.029) 07/07/20 10:00 Results - Labs CBC & Chem 7: 07/24/20 05:05 07/24/20 05:05 Labs: Laboratory Last Values WBC 13.3 K/mm3 (4.5-11.0) H 07/24/20 05:05 RBC 3.40 M/mm3 (3.65-5.03) L 07/24/20 05:05 Hgb 10.8 gm/dl (11.8-15.2) L 07/24/20 05:05 Hct 33.4 % (35.5-45.6) L 07/24/20 05:05 MCV 98 fl (84-94) H 07/24/20 05:05 MCH 32 pg (28-32) 07/24/20 05:05 MCHC 32 % (32-34) 07/24/20 05:05 RDW 16.7 % (13.2-15.2) H 07/24/20 05:05 Plt Count 378 K/mm3 (140-440) 07/24/20 05:05 Lymph % (Auto) 19.6 % (13.4-35.0) 07/24/20 05:05 [place] % (Auto) 10.0 % (0.0-7.3) H 07/24/20 05:05 Eos % (Auto) 1.9 % (0.0-4.3) 07/24/20 05:05 Baso % (Auto) 0.6 % (0.0-1.8) 07/24/20 05:05 Lymph # (Auto) 2.6 K/mm3 (1.2-5.4) 07/24/20 05:05 [place] # (Auto) 1.3 K/mm3 (0.0-0.8) H 07/24/20 05:05 Eos # (Auto) 0.3 K/mm3 (0.0-0.4) 07/24/20 05:05 Baso # (Auto) 0.1 K/mm3 (0.0-0.1) 07/24/20 05:05 Add Manual Diff Complete 07/13/20 08:31 Total Counted 100 07/13/20 08:31 Seg Neutrophils % 67.9 % (40.0-70.0) 07/24/20 05:05 Seg Neuts % (Manual) 96.0 % (40.0-70.0) H 07/13/20 08:31 Band Neutrophils % 0 % 07/13/20 08:31 Lymphocytes % (Manual) 2.0 % (13.4-35.0) L 07/13/20 08:31 Reactive Lymphs % (Man) 0 % 07/13/20 08:31 Monocytes % (Manual) 2.0 % (0.0-7.3) 07/13/20 08:31 Eosinophils % (Manual) 0 % (0.0-4.3) 07/13/20 08:31 Basophils % (Manual) 0 % (0.0-1.8) 07/13/20 08:31 Metamyelocytes % 0 % 07/13/20 08:31 Myelocytes % 0 % 07/13/20 08:31 Promyelocytes % 0 % 07/13/20 08:31 Blast Cells % 0 % 07/13/20 08:31 Nucleated RBC % Not Reportable 07/13/20 08:31 Seg Neutrophils # 9.0 K/mm3 (1.8-7.7) H 07/24/20 05:05 Seg Neutrophils # Man 20.4 K/mm3 (1.8-7.7) H 07/13/20 08:31 Band Neutrophils # 0.0 K/mm3 07/13/20 08:31 Lymphocytes # (Manual) 0.4 K/mm3 (1.2-5.4) L 07/13/20 08:31 Abs React Lymphs (Man) 0.0 K/mm3 07/13/20 08:31 Monocytes # (Manual) 0.4 K/mm3 (0.0-0.8) 07/13/20 08:31 Eosinophils # (Manual) 0.0 K/mm3 (0.0-0.4) 07/13/20 08:31 Basophils # (Manual) 0.0 K/mm3 (0.0-0.1) 07/13/20 08:31 Metamyelocytes # 0.0 K/mm3 07/13/20 08:31 Myelocytes # 0.0 K/mm3 07/13/20 08:31 Promyelocytes # 0.0 K/mm3 07/13/20 08:31 Blast Cells # 0.0 K/mm3 07/13/20 08:31 WBC Morphology Not Reportable 07/13/20 08:31 Hypersegmented Neuts Not Reportable 07/13/20 08:31 Hyposegmented Neuts Not Reportable 07/13/20 08:31 Hypogranular Neuts Not Reportable 07/13/20 08:31 Smudge Cells Not Reportable 07/13/20 08:31 Toxic Granulation Not Reportable 07/13/20 08:31 Toxic Vacuolation Not Reportable 07/13/20 08:31 Dohle Bodies Not Reportable 07/13/20 08:31 Pelger-Huet Anomaly Not Reportable 07/13/20 08:31 Jason Rods Not Reportable 07/13/20 08:31 Platelet Estimate Consistent w auto 07/13/20 08:31 Clumped Platelets Not Reportable 07/13/20 08:31 Plt Clumps, EDTA Not Reportable 07/13/20 08:31 Large Platelets Not Reportable 07/13/20 08:31 Giant Platelets Not Reportable 07/13/20 08:31 Platelet Satelliting Not Reportable 07/13/20 08:31 Plt Morphology Comment Not Reportable 07/13/20 08:31 RBC Morphology Not Reportable 07/13/20 08:31 Dimorphic RBCs Not Reportable 07/13/20 08:31 Polychromasia Not Reportable 07/13/20 08:31 Hypochromasia Not Reportable 07/13/20 08:31 Poikilocytosis Not Reportable 07/13/20 08:31 Anisocytosis Not Reportable 07/13/20 08:31 Microcytosis Not Reportable 07/13/20 08:31 Macrocytosis Not Reportable 07/13/20 08:31 Spherocytes Not Reportable 07/13/20 08:31 Pappenheimer Bodies Not Reportable 07/13/20 08:31 Sickle Cells Not Reportable 07/13/20 08:31 Target Cells Not Reportable 07/13/20 08:31 Tear Drop Cells Not Reportable 07/13/20 08:31 Ovalocytes Not Reportable 07/13/20 08:31 Stomatocytes Few 07/13/20 08:31 Helmet Cells Not Reportable 07/13/20 08:31 Sinclair-Lewis Bodies Not Reportable 07/13/20 08:31 Wright Rings Not Reportable 07/13/20 08:31 Izabella Cells Not Reportable 07/13/20 08:31 Bite Cells Not Reportable 07/13/20 08:31 Crenated Cell Not Reportable 07/13/20 08:31 Elliptocytes Not Reportable 07/13/20 08:31 Acanthocytes (Spur) Not Reportable 07/13/20 08:31 Rouleaux Not Reportable 07/13/20 08:31 Hemoglobin C Crystals Not Reportable 07/13/20 08:31 Schistocytes Not Reportable 07/13/20 08:31 Malaria parasites Not Reportable 07/13/20 08:31 Josue Bodies Not Reportable 07/13/20 08:31 Hem Pathologist Commnt No 07/13/20 08:31 PT 11.8 Sec. (12.2-14.9) L 06/22/20 14:29 INR 0.88 (0.87-1.13) 06/22/20 14:29 APTT 23.5 Sec. (24.2-36.6) L 06/22/20 14:29 D-Dimer 1887.82 ng/mlDDU (0-234) H 05/20/20 08:16 Heparin Anti-Xa Level 0.37 U.I./ml (0.3-0.7) 07/02/20 16:08 ABG pH 7.477 (7.320-7.450) H 07/13/20 13:52 POC ABG pCO2 54.4 mmHg (32.0-48.0) H 07/13/20 13:52 ABG pCO2 53.1 mm Hg 07/08/20 Unknown POC ABG pO2 126.8 mmHg (83-108) H 07/13/20 13:52 ABG pO2 75.3 mm Hg (80.0-90.0) L 07/08/20 Unknown POC ABG HCO3 39.3 07/13/20 13:52 ABG HCO3 34.3 mmol/L (20.0-26.0) H 07/08/20 Unknown ABG O2 Saturation 96.5 % (95.0-99.0) 07/08/20 Unknown ABG O2 Content 13.5 (0.0-44) 07/08/20 Unknown POC ABG Base Excess 13.8 07/13/20 13:52 ABG Base Excess 8.7 mmol/L (-2.0-3.0) H 07/08/20 Unknown ABG Hemoglobin 11.5 (12.0-17.5) L 07/13/20 13:52 ABG Oxyhemoglobin 97.7 (94-98) 07/13/20 13:52 ABG Carboxyhemoglobin 2.4 % (0.0-5.0) 07/08/20 Unknown ABG Methemoglobin 0 (0.0-1.5) 07/13/20 13:52 ABG Sodium 136.2 mmol/L (136.0-145.0) 07/13/20 13:52 ABG Potassium 3.2 mmol/L (3.40-4.50) L 07/13/20 13:52 ABG Chloride 92.0 mmol/L (98-107) L 07/13/20 13:52 ABG Glucose 169 mg/dL (65-95) H 07/13/20 13:52 Oxyhemoglobin 93.7 % (95.0-99.0) L 07/08/20 Unknown Carboxyhemoglobin 1.2 (0.5-1.5) 07/13/20 13:52 FiO2 45 07/13/20 13:52 Sodium 140 mmol/L (137-145) 07/24/20 05:05 Potassium 3.8 mmol/L (3.6-5.0) 07/24/20 05:05 Chloride 97.4 mmol/L (98-107) L 07/24/20 05:05 Carbon Dioxide 29 mmol/L (22-30) 07/24/20 05:05 Anion Gap 17 mmol/L 07/24/20 05:05 BUN 11 mg/dL (9-20) 07/24/20 05:05 Creatinine 0.3 mg/dL (0.8-1.3) L 07/24/20 05:05 Estimated GFR > 60 ml/min 07/24/20 05:05 BUN/Creatinine Ratio 37 % 07/24/20 05:05 Glucose 111 mg/dL (75-100) H 07/24/20 05:05 POC Glucose 181 mg/dL (70-105) H 07/24/20 16:45 Lactic Acid 0.80 mmol/L (0.7-2.0) 07/13/20 15:45 Calcium 9.2 mg/dL (8.4-10.2) 07/24/20 05:05 Phosphorus 3.10 mg/dL (2.5-4.5) 06/15/20 04:00 Magnesium 2.00 mg/dL (1.7-2.3) 07/24/20 05:05 Ferritin 1496.0 ng/mL (30.0-300.0) H 06/14/20 11:50 Total Bilirubin 0.20 mg/dL (0.1-1.2) 07/23/20 05:58 Direct Bilirubin 0.6 mg/dL (0-0.2) H 05/11/20 07:30 Indirect Bilirubin 0.9 mg/dL 05/11/20 07:30 AST 18 units/L (5-40) 07/23/20 05:58 ALT 55 units/L (7-56) 07/23/20 05:58 Alkaline Phosphatase 67 units/L (35-129) 07/23/20 05:58 Lactate Dehydrogenase 705 units/L (91-180) H 05/20/20 08:16 Troponin T 0.015 ng/mL (0.00-0.029) 07/07/20 10:00 C-Reactive Protein 3.10 mg/dL (0.00-1.30) H 05/20/20 08:16 Total Protein 6.4 g/dL (6.3-8.2) 07/23/20 05:58 Albumin 3.5 g/dL (3.9-5) L 07/23/20 05:58 Albumin/Globulin Ratio 1.2 % 07/23/20 05:58 Triglycerides 452 mg/dL (2-149) H 06/30/20 07:00 Lipase 86 units/L (13-60) H 06/29/20 09:36 Procalcitonin 2.15 ng/mL (<0.15) 07/15/20 05:31 Arterial Blood Glucose 169 mg/dL (65-95) H 07/13/20 13:52 Arterial Blood Ionized Calcium 4.8 mg/dL (4.6-5.3) 07/13/20 13:52 Urine Color Fauzia (Yellow) 05/10/20 Unknown Urine Turbidity Clear (Clear) 05/10/20 Unknown Urine pH 5.0 (5.0-7.0) 05/10/20 Unknown Ur Specific [place] 1.019 (1.003-1.030) 05/10/20 Unknown Urine Protein 100 mg/dl mg/dL (Negative) 05/10/20 Unknown Urine Glucose (UA) Neg mg/dL (Negative) 05/10/20 Unknown Urine Ketones Neg mg/dL (Negative) 05/10/20 Unknown Urine Blood Lg (Negative) 05/10/20 Unknown Urine Nitrite Neg (Negative) 05/10/20 Unknown Urine Bilirubin Neg (Negative) 05/10/20 Unknown Urine Urobilinogen 2.0 mg/dL (<2.0) 05/10/20 Unknown Ur Leukocyte Esterase Neg (Negative) 05/10/20 Unknown Urine WBC (Auto) 11.0 /HPF (0.0-6.0) H 05/10/20 Unknown Urine RBC (Auto) 2.0 /HPF (0.0-6.0) 05/10/20 Unknown U Epithel Cells (Auto) 1.0 /HPF (0-13.0) 05/10/20 Unknown Urine Bacteria (Auto) 1+ /HPF (Negative) 05/10/20 Unknown Urine Mucus Few /HPF 05/10/20 Unknown Plasma/Serum Alcohol < 0.01 % (0-0.07) 05/09/20 14:20 Coronavirus (PCR) Negative (Negative) 06/30/20 10:28 Hepatitis A Ab Total Nonreactive (Nonreactive) 07/09/20 Unknown Hep B Core Total Ab Nonreactive (Nonreactive) 07/09/20 Unknown Hepatitis C RNA Quant See scanned result 07/09/20 Unknown SARS-CoV-2 IgG Ab Reactive (NonReactive) A 05/11/20 07:30 Blood Type B POSITIVE 06/21/20 14:18 Antibody Screen Negative 06/21/20 14:18 Crossmatch See Detail 06/21/20 14:18 - Diagnostic Impressions Diagnostic Impressions: Echocardiogram 05/20/20 13:02 Transthoracic Echocardiogram Indication: CHF BP: 97/73 Conclusions *The study quality is technically very difficult and limited. *The left ventricular chamber size, wall thickness and systolic function are within normal limits. There are no wall motion abnormalities observed. Ejection fraction is normal. *The estimated ejection fraction is 60-65%. *The pericardium appears normal. Findings Procedure Info: The study quality is technically difficult. Left Ventricle: The left ventricular chamber size, wall thickness and systolic function are within normal limits. There are no wall motion abnormalities observed. Ejection fraction is normal. The estimated ejection fraction is 60-65%. Abnormal left ventricular diastolic filling is observed, consistent with impaired relaxation. Left Atrium: The left atrium is normal in size with no visual thrombus identified. Right Ventricle: The right ventricle is not well visualized. Right Atrium: The right atrium is not well visualized. Aortic Valve: The aortic valve is trileaflet. The leaflets are thin with normal excursion. There is no aortic stenosis or regurgitation present. Mitral Valve: The mitral valve appears normal in structure and function. Tricuspid Valve: The tricuspid valve appears normal in structure and function. Unable to estimate the right ventricular systolic pressure. Pulmonic Valve: The pulmonic valve is not well visualized. There is no evidence of pulmonic regurgitation. There is no pulmonic stenosis. Pericardium: The pericardium appears normal. Pulmonary Artery: The main pulmonary artery is not well visualized. Venous: The inferior vena cava appears normal in size. Measurements Chambers 2D Name Value Normal Range IVSd (2D) 0.83 cm (0.6 - 1.1) LVPWd (2D) 0.83 cm (0.6 - 1.1) LVIDd (2D) 3.88 cm (3.7 - 5.6) LVIDs (2D) 2.46 cm (2 - 3.8) LV FS (2D) 36.52 % - EF Teichholz (2D) 66.97 % - Ao root diameter (2D) 3.47 cm (2 - 3.7) Volumes/Mass Name Value Normal Range LA ESV SP 4CH (A/L) 22.4 ml - LA ESV SP 2CH (A/L) 22.89 ml - LA ESV BP (A/L) 23.06 ml - LA ESV SP 4CH (MOD) 21.09 ml - LA ESV SP 2CH (MOD) 22.44 ml - Diastolic/Systolic Function Name Value Normal Range MV E-wave Vmax 0.48 m/sec - MV deceleration time 156.3 msec - MV A-wave Vmax 0.59 m/sec - MV E:A ratio 0.81 ratio - Aortic Valve Name Value Normal Range AV Vmax 0.97 m/sec - AV VTI 14.49 cm - AV peak gradient 3.73 mmHg - AV mean gradient 1.89 mmHg - LVOT diameter 2.09 cm - LVOT Vmax 0.72 m/sec - LVOT VTI 10.21 cm - LVOT peak gradient 2.05 mmHg - LVOT mean gradient 1.03 mmHg - SV LVOT 35.17 ml - INNA (continuity Vmax) 2.55 cm2 - INNA (continuity VTI) 2.43 cm2 - Tricuspid Valve Name Value Normal Range TV E-wave Vmax 0.37 m/sec - Pulmonic Valve/Qp:Qs Name Value Normal Range PV Vmax 0.72 m/sec - PV peak gradient 2.06 mmHg - RVOT Vmax 0.85 m/sec - RVOT VTI 9.89 cm - RVOT peak gradient 2.9 mmHg - PV acceleration time 72.31 msec - Cantor/IV: Voiding Method Condom Catheter IV Catheter Type [Right Wrist] INT / Saline Lock IV Catheter Type [Right Upper Peripheral IV arm] IV Catheter Type [Right CVL Internal Jugular] IV Catheter Type [Right Peripheral IV Forearm] IV Catheter Type [Left Forearm INT / Saline Lock ] IV Catheter Type [Left Wrist] INT / Saline Lock IV Catheter Type [Right Hand] INT / Saline Lock IV Catheter Type [Left Hand] INT / Saline Lock IV Catheter Type [Left Peripheral IV [employer]] Active Medications - Current Medications Current Medications: Generic Name Dose Route Start Last Admin Trade Name Freq PRN Reason Stop Dose Admin Alprazolam 0.25 mg 05/20/20 17:53 07/17/20 12:00 Alprazolam 0.25 Mg Tab PO 0.25 mg Q8H PRN Administration Anxiety Lipase/Protease/Amylase 1 each 05/22/20 13:01 Lipase 10,500/Protease 25,000/Amylase 43,750 (Units) Dr Newell FEEDTUBE PRN PRN For Clogged Feeding Tube Bisacodyl 10 mg 07/14/20 11:00 Bisacodyl 10 Mg Rect Supp RI BID PRN Laxative Effect Docusate Sodium 100 mg 05/28/20 14:00 07/24/20 09:17 Docusate Sodium 100 Mg/10 Ml Oral Liqd PO 100 mg BID DESIRE Administration Enoxaparin Sodium 80 mg 07/07/20 23:00 07/24/20 09:16 Enoxaparin 80 Mg/0.8 Ml Inj SUB-Q 80 mg Q12HR DESIRE Administration Enoxaparin Sodium 30 mg 07/07/20 23:00 07/24/20 09:16 Enoxaparin 30 Mg/0.3 Ml Inj SUB-Q 30 mg Q12HR DESIRE Administration Folic Acid 1 mg 05/09/20 15:36 07/24/20 09:17 Folic Acid 1 Mg Tab PO 1 mg QDAY DESIRE Administration Guaifenesin 600 mg 07/19/20 23:00 07/24/20 09:17 Guaifenesin Er 600 Mg Tab PO 600 mg BID DESIRE Administration Hydrophilic Ointment 1 applic 05/21/20 20:33 Lip Therapy Vaseline TP Q2HR PRN Dry Lips Cefepime HCl 2 gm in 100 mls @ 200 mls/hr 07/14/20 21:00 07/24/20 12:11 Cefepime/Ns 2 Gm/100 Ml IV 07/28/20 13:29 100 mls/hr Q8H DESIRE Administration Protocol Insulin Human Lispro 0 unit 05/29/20 14:00 07/24/20 17:45 Insulin Lispro 100 Unit/Ml Vial 3 Ml SUB-Q 3 unit Q6H DESIRE Administration Protocol Lansoprazole 30 mg 06/28/20 10:00 07/24/20 09:18 Lansoprazole 30 Mg Solutab FEEDTUBE 30 mg QDAY DESIRE Administration Lorazepam 1 mg 07/04/20 01:10 07/18/20 11:57 Lorazepam 2 Mg/Ml Vial IV 1 mg Q1HR PRN Administration agitation Methylprednisolone Sodium Succinate 20 mg 07/15/20 10:00 07/24/20 09:18 Methylprednisolone Sod Succinate 40 Mg/1 Ml Inj IV 20 mg Q24HR DESIRE Administration Metoprolol Tartrate 5 mg 07/02/20 17:17 07/08/20 14:38 Metoprolol Tartrate 5 Mg/5 Ml Inj IV 5 mg Q6HR PRN Administration Tachyarrhythmias Metoprolol Tartrate 12.5 mg 07/17/20 12:00 07/24/20 09:17 Metoprolol Tartrate 25 Mg Tab PO 12.5 mg BID DESIRE Administration Midodrine 10 mg 06/30/20 16:00 07/24/20 17:45 Midodrine 5 Mg Tab PO 10 mg TID@0800,1200,1600 DESIRE Administration Multi-Ingred Cream/Lotion/Oil/Oint 1 applic 05/21/20 20:33 Mineral Oil/Petrolatum, White Ophth Oint 3.5 Gm OU Q4HR PRN Dry Eye(s) Olanzapine 5 mg 07/17/20 22:00 07/23/20 22:12 Olanzapine 5 Mg Tab PO 5 mg QHS DESIRE Administration Phenobarbital 32.4 mg 07/04/20 22:00 07/24/20 09:19 Phenobarbital 32.4 Mg Tab PO 32.4 mg BID DESIRE Administration Quetiapine Fumarate 200 mg 07/16/20 10:00 07/24/20 09:18 Quetiapine 200 Mg Tab PO 200 mg QAM DESIRE Administration Senna 17.2 mg 07/14/20 11:00 Sennosides 8.6 Mg Tab PO BID PRN Laxative Effect Simple Syrup 15 ml 05/22/20 13:01 07/15/20 05:35 Simple Syrup 15 Ml FEEDTUBE 15 ml PRN PRN Administration Hypoglycemia Simple Syrup 30 ml 05/22/20 13:01 Simple Syrup 15 Ml FEEDTUBE PRN PRN Hypoglycemia Sodium Bicarbonate 325 mg 05/22/20 13:01 Sodium Bicarbonate 325 Mg Tab FEEDTUBE PRN PRN For Clogged Feeding Tube Sodium Chloride 10 ml 05/09/20 22:00 07/24/20 09:19 Sodium Chloride 0.9% 10 Ml Flush Syringe IV 10 ml BID DESIRE Administration Nutrition/Malnutrition Assess - Dietary Evaluation Nutrition/Malnutrition Findings: Nutrition Notes Start: 05/17/20 14:10 Freq: Status: Active Protocol: Document 07/23/20 14:39 CW (Rec: 07/23/20 14:49 CW [email or web address]) Co-Sign 07/23/20 14:39 LP Nutrition Notes Initial or Follow up Reassessment Current Diagnosis Acute Kidney Injury,Decubitus( Pressure Ulcer),Sepsis, Respiratory Failure Other Pertinent Diagnosis Bilat pneu, COVID-19 (+), EtOH dependence Current Diet Regular diet Labs/Tests K 2.9 BG 199 Pertinent Medications KCl 120 mEq Humalog solumedrol Height 6 ft Weight 107.5 kg [place] Body Weight (kg) 80.90 BMI 32.1 Weight Status Obese Subjective/Other Information FU for TF mauricio. Per chart, pt remains extubated with diet advancement. Per RN pt is consuming 100% PO without chewing or swallowing difficulties. Percent of energy/protein needs met: 100%/100% Burn Absent Trauma Absent GI Symptoms None Current % PO Good (75-100%) Minimum of two criteria No physical signs of malnutrition #2 Nutrition Diagnosis Increased nutrient needs ( specify in comment below) Diagnosis Progress(for reassessment Continues documentation) #1 Nutrition Diagnosis Inadequate oral intake As Evidenced by Signs and Symptoms Pt extubated and diet advanced Diagnosis Progress(for reassessment Improved documentation) Is patient on ventilator? No Is Patient Ambulatory and/or Out of Bed No REE-([facility]-confined to bed) 2365.212 Kcal/Kg value to use for calculation 16 Approximate Energy Requirements Using 1720 kcal/Kg Calculation Used for Recommendations Kcal/kg Additional Notes Protein: 134-161 g (1.25-1.5 g /kg) Fluid: 1 ml/kcal Nutrition Intervention Change Diet Order: Continue diet Nutrition Support: DC Goal #1 Meet at least 75% protein and energy needs via PO Anticipated Discharge Needs: Regular diet Follow-Up By: 07/30/20 Additional Comments FU for intakes
[2020-07-24] MEDS: ALPRAZolam 0.25 MG TAB PO PRN (22:58)
[2020-07-25] MEDS: INSULIN LISPRO 100 UNIT/ML VIAL 3 mL SUB-Q SCH ×5 (05:50→23:43)
[2020-07-25] MEDS: CEFEPIME/NS 2 GM/100 ML 2 GM/100 ML BAG IV SCH ×3 (05:51→22:01)
--- NOTE | 2020-07-25 07:50 | Progress Note ---
Subjective - Reason for Consult Consult date: 07/25/20 Reason for consult: delirium - Chief Complaint Chief complaint: The patient was seen today. He is a sleep and on bipap. He appears comfortable. The nurse who cared for the patient last night stated he had rested well, been calm and cooperative with no behavioral issues. She says he uses bipap at hs only. MENTAL STATUS EXAMINATION General Appearance and Behavior: Age appropriate, good hygiene, wearing appropriate clothes, cooperative polite with questioning. Cooperation: engaged Psychomotor Behavior: Psychomotor normal Mood: alright Affect and affective range: congruent with mood Thought Process: logical Thought Content: within reality Speech: Low volume, Regular rate and rhythm, Intellectual Functioning: improved Suicidal Ideation: none Homicidal Ideation: none Impulse Control: Unimpaired Insight and Judgment: unimpaired Memory: memory improved Attention: alert and oriented Assessment and Plan (1) Delirium due to another medical condition (F05) Current Visit: Yes Status: Acute Treatment Continue current medications Risks, benefits and alternatives of medications discussed with the patient, questions answered and consent obtained from patient. PSYCHOTHERAPY: Supportive psychotherapy provided MEDICAL: Per primary team DELIRIUM PRECAUTIONS: Please re-orient patient frequently, keep lights on during the day, and minimize benzodiazepines and opiates as these medications could worsen patient's confusion. BRANCH GENERAL MANAGER: Defer to primary DISPOSITION: Do Not Recommend acute inpatient psychiatric hospitalization at this time but patient will be followed. Case discussed with Dr. Foster who agrees with current disposition Will continue to follow to monitor psych progress and med management. Thank you for the consult. Please contact with any questions and/or concerns. Mental Status Exam - Vital signs Last Vital Signs Temp 98.8 F 07/25/20 03:49 Pulse 104 H 07/25/20 07:00 Resp 19 07/25/20 07:00 BP 126/83 07/25/20 07:00 Pulse Ox 95 07/25/20 07:00
[2020-07-25] MEDS: guaiFENesin ER 600 MG TAB PO SCH ×2 (09:38→22:02)
[2020-07-25] MEDS: PHENobarbital 32.4 MG TAB PO SCH ×2 (09:38→22:02)
[2020-07-25] MEDS: ENOXAPARIN 30 MG/0.3 ML INJ SUB-Q SCH ×2 (09:38→22:03)
[2020-07-25] MEDS: ENOXAPARIN 80 MG/0.8 ML INJ SUB-Q SCH ×2 (09:38→22:03)
[2020-07-25] MEDS: FOLIC ACID 1 MG TAB PO SCH (09:38)
[2020-07-25] MEDS: methylPREDNISolone Sod Succinate 40 MG/1 ML INJ IV SCH (09:38)
[2020-07-25] MEDS: METOPROLOL TARTRATE 25 MG TAB PO SCH ×2 (09:38→22:02)
[2020-07-25] MEDS: QUEtiapine 200 MG TAB PO SCH (09:39)
[2020-07-25] MEDS: MIDODRINE 5 MG TAB PO SCH ×3 (09:39→17:06)
[2020-07-25] MEDS: LANSOPRAZOLE 30 MG SOLUTAB FEEDTUBE SCH (09:39)
[2020-07-25] MEDS: DOCUSATE SODIUM 100 MG/10 ML ORAL LIQD PO SCH ×2 (09:39→22:04)
--- NOTE | 2020-07-25 15:29 | Progress Note ---
Subjective Date of service: 07/25/20 Principal diagnosis: Ac hypoxemic resp failure; COVID-19; Severe Sepsis; Shaggy PNA; Alcohol Abuse Interval history: Assessment and plan: Positive COVID-19 test; 05/10/2020 Negative COVID-19 test; 06/30/2020 --Acute hypoxemic respiratory failure;on high flow nasal cannula oxygen Status post extubation, high flow oxygen and BiPAP ,wean as tolerated, supportive care Pulmonary critical l care following --Pneumothorax status post right chest tube Chest tube removed yesterday 07/23/2020 Post removal chest x-ray no pneumothorax No acute findings, patient is requiring high flow oxygen Wean as tolerated --Severe hypokalemia; potassium 2.9/resolved Monitor electrolytes, adjust management as needed --Sinus tachycardia: Significantly improved --Severe COVID-19 bilateral pneumonia Coronavirus protocol: IV steroid therapy, completed remdesivir, isolation precautions, contact precautions, prone positioning while in bed, pulmonary toilet. ID following SARS CoV-2 IgG positive patient is NOT a candidate for convalescent plasma --Elevated D-dimers/hyper coag state; Empiric anticoagulation with full dose Lovenox Closely monitor --Pseudomonas bacteremia; ID following, Continue cefepime --Severe sepsis/septic shock, due to COVID 19 PNA cont pressors as needed -- Acute kidney injury (SEN) , likely vasomotor nephropathy Resolved, IV fluids, avoid nephrotoxins --Acute on chronic anemia Guaiac test positive, GI evaluation PPIs, Continue to monitor -- Elevated liver function tests Suspected secondary to alcoholic liver disease. Supportive care, alcohol cessation, patient counseled. --Colonic distention GI evaluated colonic distention resolved recommend stool softeners Serial abdominal x-rays Monitor electrolytes and replete -- DVT prophylaxis On therapeutic Lovenox Closely monitor the patient and adjust management as needed Chest tube removed yesterday Patient feels better no new complaints Remains on high flow oxygen DC planning per case management Consults and recommendations noted and appreciated Brief history and hospital course; 50 YO Male with Obesity, ETOH Dependence presents to ED for evaluation. Patient states that he has experienced shortness of breath, generalized weakness, fatigue, malaise, body aches, decreased exercise tolerance over the past 5 days with persistently worsening symptoms over the same timeframe. EMS was notified and upon arrival the patient was found to be in distress with a pulse oximetry of 76% on room air as well as fever to 103 F. Patient was placed on supplemental oxygen and subsequently transported to [facility] for further care and evaluation. Patient seen and evaluated in the emergency department. All lab and imaging studies reviewed. Patient underwent chest x-ray and was found to have bilateral pneumonia. Patient also found to have a pulse oximetry of 86% on 4 L nasal cannula. Patient initiated on a high flow submental oxygen with improvement of pulse oximetry. Patient admitted to medical floor and initiated on pneumonia protocol as well as COVID-19 protocol. Patient also found to have acute kidney injury as well as elevated liver function test suspected secondary to alcohol dependence. Patient reports being diagnosed with coronavirus 2 days ago. No prior admission for review. 06/16/2020. Patient currently on mechanical ventilation with AC mode rate 30, tidal volume 500, FiO2 70% and PEEP of 16. Continue anticoagulation with Lovenox 110 milligrams subcu every 12 hours. Wean sedation of fentanyl/Versed as needed. Currently with IV steroids of Solu-Medrol 40 mg IV every 12 hours. Patient will likely need tracheostomy per pulmonary recommendations. Continue pressors to maintain MAP > 65. 06/17/2020. Patient currently on mechanical ventilation with AC mode rate 30, tidal volume 500, FiO2 65% and PEEP of 16. Continue anticoagulation with Shahab enox 110 milligrams subcu every 12 hours. Wean sedation of fentanyl/Versed as needed. Currently with IV steroids of Solu-Medrol 40 mg IV every 12 hours. Patient will likely need tracheostomy per pulmonary recommendations. 06/18/2020. Patient currently on mechanical ventilation with AC mode rate 30, tidal volume 500, FiO2 70% and PEEP of 16. Continue Lovenox for anticoagulation and fentanyl/Versed for sedation. Wean steroids per pulmonary. CIWA protocol initiated for history of EtOH dependence 06/19/2020. Patient currently on mechanical ventilation with AC mode rate 30, tidal volume 500, FiO2 60% and PEEP of 16. Wean FiO2 as tolerated per protocol. Continue Lovenox for anticoagulation and fentanyl/Versed for sedation. Wean steroids per pulmonary. CIWA protocol initiated for history of EtOH dependence 06/20/2020. Patient currently on mechanical ventilation with AC mode rate 30, tidal volume 500, FiO2 60% and PEEP of 16. Wean FiO2 as tolerated, SBT per protocol. Continue Lovenox for anticoagulation and fentanyl/Versed for sedation. Wean steroids per pulmonary. Continue pressors to maintain MAP > 65 mmHg. Patient remains on ETT. Consider tracheostomy placement once oxygenation is better per pulmonary. CIWA protocol initiated for history of EtOH dependence. 06/21/2020. Patient with a small apical pneumothorax discovered yesterday. General surgery consulted and consider placing chest tube. Follow-up serial chest x-ray patient currently on mechanical ventilation with AC mode rate 30, tidal volume 500, FiO2 60% and PEEP of 16. Wean FiO2 as tolerated, SBT per protocol. Continue Lovenox for anticoagulation and fentanyl/Versed for sedation. Wean steroids per pulmonary. Continue pressors to maintain MAP > 65 mmHg. Patient remains on ETT. Consider tracheostomy placement once oxygenation is better per pulmonary. CIWA protocol initiated for history of EtOH dependence. 06/22. Status post right chest tube placement yesterday. Remains mechanically ventilated on pressors. Examination today shows slightly distended abdomen. KUB ordered. Awaiting stool guaiac. Plan to get a GI evaluation. 06/23. Has colonic distention on the x-ray. Discussed with GI-advised stool softeners for now and close monitoring. No indication for colonic decompression at this time. Guaiac test is positive. No emergent indication for endoscopy at this point as per GI. Continue to monitor hemoglobin. 06/24. Remains intubated. On pressors. GI following for positive guaiac stool and anemia, and colonic distention. 06/25. Repeat abdominal xray ordered. Remains on mechanical ventilation. 06/26. Abdominal xray - resolved colonic distension. Mechanically ventilated. 06/27. Plan for trach and PEG. 06/28: Awaiting trach and Peg. S\ome Bm REPORTED, will continue to monitor 06/29: Resume care, patient remains on ventilator support, waiting on trach and PEG placement. BM reported by the RN, continue to monitor. 06/30: Unable to wean off from vent, patient will need trach and PEG. Continue supportive care, tolerating tube feed. Monitor CBC and BMP 07/01: Continue mechanical ventilation, tube feeding as tolerated. Sedation as needed per mechanical ventilation protocol. Waiting on trach and PEG placement. 07/02: Continue current management, tube feeding, monitor CBC and BMP. Need trach and PEG-waiting on scheduling. Pulmonary critical care following. 07/03: wean off vent as tolerated. follow clinically. need trach and PEG 12/27: unable to wean. CT head ordered to assess for any changes but too unstable to do the test. need trach and PEG. 07/05: plan for trach/peg - GS following. off pressor - on midodrine. renal function stable. intubated, but alert and can follow minor commend. discussed with daughter by phone. 07/06/2020; Dr. Márquez discussed with patient's daughter about trach but the daughter needs time to think about it. Patient was intubated and alert, FiO2 40%. 07/07/2020; patient was intubated and alert, FiO2 40%. Patient was diaphoretic, tachycardic, and EKG was done which was abnormal for me. I called boxing and pressing supervisor Dr Louis saw the EKG and said it is normal EKG, and the findings are abnormal. 07/08/2020; no significant change, patient is intubated and alert. 2: Patient continues on current management. Pulmonary recommending trach and PEG awaiting patient's decision on this. Will check intermittent labs 07/11: Ordered CT still pending. Patient was agitated at night. Appears to have calmed down. Will repeat labs today. 07/12: Continue supportive care, awaiting CPAP trial. discussed with pulmonary. Obtain labs today. Trach and Peg planned 07/13: Continues to current management, PLAN FOR Trach and PEG on Sunday if patient is not able to liberated from the ventilator, Continue to monitor Fever curve and repeat Sepsis work up if persistent fever 07/14: Now extubated, continue to work up. 07/15: Clinical stable for transfer to [facility], still with fever and now showing bactermia. Continue Abx per ID. monitor fever 07/16: Continue supportive care. MONITOR FEVER CURVE, Adjust antibiotics as tolerated 07/17: Chest tube remains in place. More lethargic, Requested BIPAP to bedside, Chest tube to be discontinued, Awaiting Pysch input. 07/18: Chest tube remains in place repeat chest x-ray shows persistent bilateral opacity with mild improvement. Continue nebulizer treatments. Hypokalemia also noted will replace. Pulmonary and surgical input noted 07/19: Patient is a 50-year-old male admitted with shortness of breath ended up on mechanical ventilation noted to have pneumothorax has a chest tube in place. Has been successfully extubated but remains with delirium secondary to medical condition and also mild to moderate respiratory distress on Venturi mask. Continue weaning attempts. Patient still with chest tube. Continue serial x- rays. Will discuss with case management about possible LTAC placement. Blood cultures are currently returning Pseudomonas species. ID is following. 07/20/2020; patient continues to feel better, high flow oxygen and BiPAP Chest tube in place, continue current management, pulmonary surgery following 07/21/2020:Patient remains on High flow o2 07/22/2020; patient remains on high flow oxygen 8 L 100% O2 sat 93% Case management checking for LTAC placement 07/23/2020; patient remains on high flow oxygen, wean oxygen as tolerated, severe hypokalemia Replenish per protocol monitor levels 07/24/2020; patient had chest tube removal yesterday 07/23/2019 and, post removal chest x-ray no pneumothorax no acute abnormalities Patient feels slightly better continues to require high flow oxygen Wean as tolerated, physical and occupational therapy, DC planning 07/25 patient is awake and alert, not in any distress, he is on high flow via nasal cannula and on 6 L, oxygen saturation is 94%, coughing when he attempts to talk Objective - Constitutional Vitals: Vital Signs - 12hr 07/25/20 07/25/20 07/25/20 03:49 04:00 04:20 Temperature 98.8 F Pulse Rate 97 H 99 H Pulse Rate [ From Monitor] Respiratory 20 Rate Blood Pressure 120/78 O2 Sat by Pulse 94 Oximetry 07/25/20 07/25/20 07/25/20 05:00 06:00 07:00 Temperature Pulse Rate 97 H 103 H 104 H Pulse Rate [ From Monitor] Respiratory 19 27 H 19 Rate Blood Pressure 120/81 131/86 126/83 O2 Sat by Pulse 96 97 95 Oximetry 07/25/20 07/25/20 07/25/20 08:00 08:40 09:00 Temperature 98.3 F Pulse Rate 111 H 117 H Pulse Rate [ 111 H From Monitor] Respiratory 17 28 H Rate Blood Pressure 115/74 118/82 O2 Sat by Pulse 89 96 99 Oximetry 07/25/20 07/25/20 07/25/20 09:38 10:00 11:00 Temperature Pulse Rate 116 H 118 H 119 H Pulse Rate [ From Monitor] Respiratory 35 H 33 H Rate Blood Pressure 118/62 131/82 125/82 O2 Sat by Pulse 94 93 Oximetry 07/25/20 07/25/20 07/25/20 12:00 13:00 14:00 Temperature 98 F Pulse Rate 120 H 115 H 106 H Pulse Rate [ 120 H From Monitor] Respiratory 36 H 31 H 30 H Rate Blood Pressure 126/83 115/75 118/77 O2 Sat by Pulse 94 92 94 Oximetry General appearance: Present: no acute distress, well-nourished - EENT Eyes: PERRL, EOM intact ENT: hearing intact - Neck Neck: supple, normal ROM - Respiratory Respiratory effort: normal Respiratory: bilateral: diminished - Cardiovascular Rhythm: regular Extremities: No edema - Gastrointestinal General gastrointestinal: Present: soft, non-tender Rectal Exam: deferred - Musculoskeletal Musculoskeletal: generalized weakness - Neurologic Neurologic: moves all extremities - Psychiatric Psychiatric: appropriate mood/affect - Labs CBC & Chem 7: 07/24/20 05:05 07/24/20 05:05 Labs: Abnormal lab results 07/24/20 07/24/20 07/25/20 Range/Units 16:45 23:43 05:00 POC Glucose 181 H 122 H 114 H (70-105) mg/dL 07/25/20 Range/Units 11:44 POC Glucose 298 H (70-105) mg/dL HEART Score - HEART Score Troponin: Troponin T 0.015 ng/mL (0.00-0.029) 07/07/20 10:00
[2020-07-26] MEDS: INSULIN LISPRO 100 UNIT/ML VIAL 3 mL SUB-Q SCH ×3 (06:02→19:30)
[2020-07-26] MEDS: CEFEPIME/NS 2 GM/100 ML 2 GM/100 ML BAG IV SCH ×3 (06:02→21:31)
--- NOTE | 2020-07-26 08:05 | Progress Note ---
Subjective - Reason for Consult Consult date: 07/26/20 Reason for consult: delirium - Chief Complaint Chief complaint: Nursing staff: The nurse caring for the patient states that he's been resting well with no behavioral issues. The patient was seen today. He is a sleep and on bipap. He appears comfortable. He is awake. He is oriented x 3. He says he slept well and his stomach feels better. The patient denies any SI/HI. He laughs and says "no, I'm trying to get better not hurt myself." He denies hallucinations of any kind. MENTAL STATUS EXAMINATION General Appearance and Behavior: Age appropriate, good hygiene, wearing appropriate clothes, cooperative polite with questioning. Cooperation: engaged Psychomotor Behavior: Psychomotor normal Mood: alright Affect and affective range: congruent with mood Thought Process: logical Thought Content: within reality Speech: Low volume, Regular rate and rhythm, Intellectual Functioning: improved Suicidal Ideation: none Homicidal Ideation: none Impulse Control: Unimpaired Insight and Judgment: unimpaired Memory: memory improved Attention: alert and oriented Assessment and Plan (1) Delirium due to another medical condition (F05) Current Visit: Yes Status: Acute Treatment Continue current medications Risks, benefits and alternatives of medications discussed with the patient, questions answered and consent obtained from patient. PSYCHOTHERAPY: Supportive psychotherapy provided MEDICAL: Per primary team DELIRIUM PRECAUTIONS: Please re-orient patient frequently, keep lights on during the day, and minimize benzodiazepines and opiates as these medications could worsen patient's confusion. BANQUET LEAD: Defer to primary DISPOSITION: Do Not Recommend acute inpatient psychiatric hospitalization at this time but patient will be followed. Case discussed with Dr. Foster who agrees with current disposition Will continue to follow to monitor psych progress and med management. Thank you for the consult. Please contact with any questions and/or concerns. Mental Status Exam - Vital signs Last Vital Signs Temp 99.5 F 07/26/20 03:40 Pulse 103 H 07/26/20 06:00 Resp 21 07/26/20 06:00 BP 127/76 07/26/20 06:00 Pulse Ox 95 07/26/20 07:49
[2020-07-26] MEDS: LANSOPRAZOLE 30 MG SOLUTAB FEEDTUBE SCH (09:37)
[2020-07-26] MEDS: ALPRAZolam 0.25 MG TAB PO PRN (09:37)
[2020-07-26] MEDS: FOLIC ACID 1 MG TAB PO SCH (09:37)
[2020-07-26] MEDS: QUEtiapine 200 MG TAB PO SCH (09:37)
[2020-07-26] MEDS: MIDODRINE 5 MG TAB PO SCH ×2 (09:37→16:15)
[2020-07-26] MEDS: methylPREDNISolone Sod Succinate 40 MG/1 ML INJ IV SCH (10:14)
[2020-07-26] MEDS: METOPROLOL TARTRATE 25 MG TAB PO SCH ×2 (10:17→21:41)
[2020-07-26] MEDS: guaiFENesin ER 600 MG TAB PO SCH ×2 (10:19→21:39)
--- NOTE | 2020-07-26 14:17 | Progress Note ---
Assessment and Plan Patient Awake. Resting on 5 litres High flow O2, and O2 saturation running 98%. BIPAP stand by in the room. Patient afebrile and has leukocytosis. Patients D dimer 1887.2. Ferritin 2088. LDH 705. C reactive protein 3.1 Chest xray 05/17/20 reported Persistent diffuse patchy bilateral airspace disease. Apparent interval worsening Repeat chest xray 07/19/20 reported Bilateral pulmonary opacities persist. No pneumothorax. Patient finished course of REMDESIVIR, ceftrioxane and zithromax . Chest xray done to day 07/21/20 reported Stable diffuse mild airspace disease bilaterally. Patient is on methylprednisone Cefepime,and S/C Lovenox therapeutic dose and Prevacid. I have seen the patient in IM. I spent critical care time of 32 minutes , Reviewing the chart,examining patient, Review labs , chest xray , talking to the respiratory therapy and nursing staff and work out plan of treatment in this critically sick patient. - Patient Problems (1) Acute respiratory failure due to COVID-19 Current Visit: Yes Status: Acute Plan to address problem: Patient is on High flow o2 5 litres. Continue solumedrol. Continue cefepime, Convert aerosol treatments to metered dose inhalers Continue S/C Lovenox.Therapeutic dose. Continue prevacid. Patient finished course of REMDESIVIR, Ceftrioxana and zithromax. (2) Bilateral pneumonia Current Visit: Yes Status: Acute Plan to address problem: Patient is on cefepime. (3) Acute kidney injury (SEN) with acute tubular necrosis (ATN) Current Visit: Yes Status: Acute Plan to address problem: Management as per nephrology. (4) Alcohol dependence Current Visit: Yes Status: Acute Qualifiers: Substance use status: uncomplicated Qualified Code(s): F10.20 - Alcohol dependence, uncomplicated Plan to address problem: Management as per primary care. (5) Elevated liver function tests Current Visit: Yes Status: Acute Plan to address problem: Liver enzymes elevated either from his alcoholic abuse or from COVID 19 infection. Subjective Date of service: 07/26/20 Principal diagnosis: Ac hypoxemic resp failure; COVID-19; Severe Sepsis; Shaggy PNA; Alcohol Abuse Interval history: Patient Awake. Resting on 5 litres High flow O2, and O2 saturation running 98%. BIPAP stand by in the room. Patient afebrile and has leukocytosis. Patients D dimer 1887. 82. Ferritin 2088. LDH 705. C reactive protein 3.1 Chest xray 05/17/20 reported Persistent diffuse patchy bilateral airspace disease. Apparent interval worsening Repeat chest xray 07/19/20 reported Bilateral pulmonary opacities persist. No pneumothorax. Patient finished course of REMDESIVIR, ceftrioxane and zithromax . Chest xray done to day 07/21/20 reported Stable diffuse mild airspace disease bilaterally. Patient is on methylprednisone Cefepime,and S/C Lovenox therapeutic dose and Prevacid. Objective Vital Signs - 12hr 07/26/20 07/26/20 07/26/20 03:00 03:40 04:00 Temperature 99.5 F Pulse Rate 97 H 101 H Respiratory 26 H 22 Rate Blood Pressure 107/70 109/71 O2 Sat by Pulse 95 96 Oximetry 07/26/20 07/26/20 07/26/20 04:15 04:41 05:00 Temperature Pulse Rate 102 H 102 H 104 H Respiratory 23 22 Rate Blood Pressure 109/71 108/68 O2 Sat by Pulse 98 95 Oximetry 07/26/20 07/26/20 07/26/20 06:00 07:00 07:45 Temperature 99.1 F Pulse Rate 103 H 116 H Respiratory 21 21 Rate Blood Pressure 127/76 106/73 O2 Sat by Pulse 95 93 Oximetry 07/26/20 07/26/20 07/26/20 07:49 08:00 09:00 Temperature Pulse Rate 110 H 106 H Respiratory 46 H 35 H Rate Blood Pressure 120/79 O2 Sat by Pulse 95 93 98 Oximetry 07/26/20 07/26/20 10:17 11:19 Temperature 97.9 F Pulse Rate 120 H Respiratory Rate Blood Pressure 105/67 O2 Sat by Pulse Oximetry Constitutional: no acute distress, alert, other (middle aged obese male with mildly increased respiratory effort at rest ) Eyes: non-icteric ENT: oropharynx moist, other (extubated) Neck: supple, no JVD Effort: mildly labored Ascultation: Bilateral: diminished breath sounds, rhonchi (scant), other (r. chest tube) Percussion: Bilateral: not dull Cardiovascular: regular rate and rhythm, other (No R/M) Gastrointestinal: normoactive bowel sounds, soft, non-tender, non-distended (protuberant) Integumentary: normal Extremities: no cyanosis, no edema, pulses normal, no ischemia or petechiae Neurologic: non-focal exam (non focal grossly; weak), pupils equal and round, CN II-XII normal, motor strength normal and (weak ) Psychiatric: mood appropriate, affect normal CBC and BMP: 07/24/20 05:05 07/24/20 05:05 ABG, PT/INR, D-dimer: ABG ABG pH 7.477 (7.320-7.450) H 07/13/20 13:52 POC ABG pCO2 54.4 mmHg (32.0-48.0) H 07/13/20 13:52 ABG pCO2 53.1 mm Hg 07/08/20 Unknown POC ABG pO2 126.8 mmHg (83-108) H 07/13/20 13:52 ABG pO2 75.3 mm Hg (80.0-90.0) L 07/08/20 Unknown POC ABG HCO3 39.3 07/13/20 13:52 ABG O2 Saturation 96.5 % (95.0-99.0) 07/08/20 Unknown PT/INR, D-dimer PT 11.8 Sec. (12.2-14.9) L 06/22/20 14:29 INR 0.88 (0.87-1.13) 06/22/20 14:29 D-Dimer 1887.82 ng/mlDDU (0-234) H 05/20/20 08:16 Abnormal lab findings: Abnormal Labs 05/09/20 05/09/20 05/09/20 12:59 12:59 12:59 WBC 11.8 H RBC Hgb Hct MCV 96 H MCH 34 H MCHC 35 H RDW Lymph % (Auto) 6.9 L Hendricks % (Auto) Lymph # (Auto) 0.8 L Hendricks # (Auto) Baso # (Auto) Seg Neutrophils % 87.5 H Seg Neuts % (Manual) Lymphocytes % (Manual) Nucleated RBC % Seg Neutrophils # 10.3 H Seg Neutrophils # Man Lymphocytes # (Manual) Monocytes # (Manual) Eosinophils # (Manual) PT INR APTT D-Dimer Heparin Anti-Xa Level ABG pH POC ABG pCO2 POC ABG pO2 ABG pO2 ABG HCO3 ABG O2 Saturation ABG Base Excess ABG Hemoglobin ABG Oxyhemoglobin ABG Sodium ABG Potassium ABG Chloride ABG Glucose Oxyhemoglobin Carboxyhemoglobin Sodium 130 L Potassium 3.5 L Chloride 86.4 L Carbon Dioxide BUN 33 H Creatinine 2.3 H Glucose 156 H POC Glucose Lactic Acid Calcium Magnesium Ferritin Total Bilirubin 3.40 H Direct Bilirubin 1.7 H AST 385 H ALT 134 H Alkaline Phosphatase Lactate Dehydrogenase C-Reactive Protein Total Protein Albumin 3.0 L Triglycerides Lipase Arterial Blood Glucose Arterial Blood Ionized Calcium Urine WBC (Auto) Coronavirus (PCR) SARS-CoV-2 IgG Ab Crossmatch 05/09/20 05/09/20 05/09/20 12:59 12:59 12:59 WBC RBC Hgb Hct MCV MCH MCHC RDW Lymph % (Auto) Hendricks % (Auto) Lymph # (Auto) Hendricks # (Auto) Baso # (Auto) Seg Neutrophils % Seg Neuts % (Manual) Lymphocytes % (Manual) Nucleated RBC % Seg Neutrophils # Seg Neutrophils # Man Lymphocytes # (Manual) Monocytes # (Manual) Eosinophils # (Manual) PT INR APTT D-Dimer 3242.51 H Heparin Anti-Xa Level ABG pH POC ABG pCO2 POC ABG pO2 ABG pO2 ABG HCO3 ABG O2 Saturation ABG Base Excess ABG Hemoglobin ABG Oxyhemoglobin ABG Sodium ABG Potassium ABG Chloride ABG Glucose Oxyhemoglobin Carboxyhemoglobin Sodium Potassium Chloride Carbon Dioxide BUN Creatinine Glucose 158 H POC Glucose Lactic Acid 3.50 H* Calcium Magnesium Ferritin Total Bilirubin Direct Bilirubin AST ALT Alkaline Phosphatase Lactate Dehydrogenase 2166 H C-Reactive Protein 39.00 H Total Protein Albumin Triglycerides Lipase Arterial Blood Glucose Arterial Blood Ionized Calcium Urine WBC (Auto) Coronavirus (PCR) SARS-CoV-2 IgG Ab Crossmatch 05/09/20 05/09/20 05/09/20 12:59 14:20 14:20 WBC RBC Hgb Hct MCV MCH MCHC RDW Lymph % (Auto) Hendricks % (Auto) Lymph # (Auto) Hendricks # (Auto) Baso # (Auto) Seg Neutrophils % Seg Neuts % (Manual) Lymphocytes % (Manual) Nucleated RBC % Seg Neutrophils # Seg Neutrophils # Man Lymphocytes # (Manual) Monocytes # (Manual) Eosinophils # (Manual) PT INR APTT D-Dimer 2861.78 H Heparin Anti-Xa Level ABG pH POC ABG pCO2 POC ABG pO2 ABG pO2 ABG HCO3 ABG O2 Saturation ABG Base Excess ABG Hemoglobin ABG Oxyhemoglobin ABG Sodium ABG Potassium ABG Chloride ABG Glucose Oxyhemoglobin Carboxyhemoglobin Sodium Potassium Chloride Carbon Dioxide BUN Creatinine Glucose POC Glucose Lactic Acid 2.20 H* Calcium Magnesium Ferritin 53299.0 H Total Bilirubin Direct Bilirubin AST ALT Alkaline Phosphatase Lactate Dehydrogenase C-Reactive Protein Total Protein Albumin Triglycerides Lipase Arterial Blood Glucose Arterial Blood Ionized Calcium Urine WBC (Auto) Coronavirus (PCR) SARS-CoV-2 IgG Ab Crossmatch 05/09/20 05/09/20 05/09/20 14:20 14:20 15:56 WBC RBC Hgb Hct MCV MCH MCHC RDW Lymph % (Auto) Hendricks % (Auto) Lymph # (Auto) Hendricks # (Auto) Baso # (Auto) Seg Neutrophils % Seg Neuts % (Manual) Lymphocytes % (Manual) Nucleated RBC % Seg Neutrophils # Seg Neutrophils # Man Lymphocytes # (Manual) Monocytes # (Manual) Eosinophils # (Manual) PT INR APTT D-Dimer Heparin Anti-Xa Level ABG pH POC ABG pCO2 POC ABG pO2 57.3 L ABG pO2 ABG HCO3 ABG O2 Saturation ABG Base Excess ABG Hemoglobin ABG Oxyhemoglobin 86.3 L ABG Sodium 129.9 L ABG Potassium ABG Chloride ABG Glucose 146 H Oxyhemoglobin Carboxyhemoglobin Sodium Potassium Chloride Carbon Dioxide BUN Creatinine Glucose 143 H POC Glucose Lactic Acid Calcium Magnesium Ferritin 01140.0 H Total Bilirubin Direct Bilirubin AST ALT Alkaline Phosphatase Lactate Dehydrogenase 1953 H C-Reactive Protein 33.50 H Total Protein Albumin Triglycerides Lipase Arterial Blood Glucose 146 H Arterial Blood Ionized Calcium 3.9 L Urine WBC (Auto) Coronavirus (PCR) SARS-CoV-2 IgG Ab Crossmatch 05/10/20 05/10/20 05/10/20 10:32 10:32 18:50 WBC 15.4 H RBC Hgb Hct MCV 97 H MCH 33 H MCHC RDW 13.1 L Lymph % (Auto) Hendricks % (Auto) Lymph # (Auto) Hendricks # (Auto) Baso # (Auto) Seg Neutrophils % Seg Neuts % (Manual) 89.0 H Lymphocytes % (Manual) 8.0 L Nucleated RBC % Seg Neutrophils # Seg Neutrophils # Man 13.7 H Lymphocytes # (Manual) Monocytes # (Manual) Eosinophils # (Manual) PT INR APTT D-Dimer Heparin Anti-Xa Level ABG pH POC ABG pCO2 POC ABG pO2 ABG pO2 ABG HCO3 ABG O2 Saturation ABG Base Excess ABG Hemoglobin ABG Oxyhemoglobin ABG Sodium ABG Potassium ABG Chloride ABG Glucose Oxyhemoglobin Carboxyhemoglobin Sodium 136 L Potassium Chloride 97.4 L Carbon Dioxide BUN 37 H Creatinine 1.7 H Glucose 209 H POC Glucose Lactic Acid Calcium Magnesium Ferritin > 2000.0 H Total Bilirubin Direct Bilirubin AST ALT Alkaline Phosphatase Lactate Dehydrogenase C-Reactive Protein Total Protein Albumin Triglycerides Lipase Arterial Blood Glucose Arterial Blood Ionized Calcium Urine WBC (Auto) Coronavirus (PCR) SARS-CoV-2 IgG Ab Crossmatch 05/10/20 05/10/20 05/10/20 18:50 19:00 Unknown WBC RBC Hgb Hct MCV MCH MCHC RDW Lymph % (Auto) Hendricks % (Auto) Lymph # (Auto) Hendricks # (Auto) Baso # (Auto) Seg Neutrophils % Seg Neuts % (Manual) Lymphocytes % (Manual) Nucleated RBC % Seg Neutrophils # Seg Neutrophils # Man Lymphocytes # (Manual) Monocytes # (Manual) Eosinophils # (Manual) PT INR APTT D-Dimer > 08830 H Heparin Anti-Xa Level ABG pH POC ABG pCO2 POC ABG pO2 ABG pO2 ABG HCO3 ABG O2 Saturation ABG Base Excess ABG Hemoglobin ABG Oxyhemoglobin ABG Sodium ABG Potassium ABG Chloride ABG Glucose Oxyhemoglobin Carboxyhemoglobin Sodium Potassium Chloride Carbon Dioxide BUN Creatinine Glucose POC Glucose Lactic Acid Calcium Magnesium Ferritin Total Bilirubin Direct Bilirubin AST ALT Alkaline Phosphatase Lactate Dehydrogenase 1879 H C-Reactive Protein 24.80 H Total Protein Albumin Triglycerides Lipase Arterial Blood Glucose Arterial Blood Ionized Calcium Urine WBC (Auto) 11.0 H Coronavirus (PCR) SARS-CoV-2 IgG Ab Crossmatch 05/10/20 05/11/20 05/11/20 Unknown 07:30 07:30 WBC RBC Hgb Hct MCV MCH MCHC RDW Lymph % (Auto) Hendricks % (Auto) Lymph # (Auto) Hendricks # (Auto) Baso # (Auto) Seg Neutrophils % Seg Neuts % (Manual) Lymphocytes % (Manual) Nucleated RBC % Seg Neutrophils # Seg Neutrophils # Man Lymphocytes # (Manual) Monocytes # (Manual) Eosinophils # (Manual) PT INR APTT D-Dimer > 2000 H Heparin Anti-Xa Level ABG pH POC ABG pCO2 POC ABG pO2 ABG pO2 ABG HCO3 ABG O2 Saturation ABG Base Excess ABG Hemoglobin ABG Oxyhemoglobin ABG Sodium ABG Potassium ABG Chloride ABG Glucose Oxyhemoglobin Carboxyhemoglobin Sodium Potassium Chloride 96.3 L Carbon Dioxide BUN 36 H Creatinine Glucose 161 H POC Glucose Lactic Acid Calcium 8.3 L Magnesium Ferritin Total Bilirubin 1.50 H Direct Bilirubin 0.6 H AST 178 H ALT 111 H Alkaline Phosphatase Lactate Dehydrogenase C-Reactive Protein Total Protein Albumin 3.0 L Triglycerides Lipase Arterial Blood Glucose Arterial Blood Ionized Calcium Urine WBC (Auto) Coronavirus (PCR) Positive A SARS-CoV-2 IgG Ab Crossmatch 05/11/20 05/11/20 05/11/20 07:30 07:30 07:30 WBC RBC Hgb Hct MCV MCH MCHC RDW Lymph % (Auto) Hendricks % (Auto) Lymph # (Auto) Hendricks # (Auto) Baso # (Auto) Seg Neutrophils % Seg Neuts % (Manual) Lymphocytes % (Manual) Nucleated RBC % Seg Neutrophils # Seg Neutrophils # Man Lymphocytes # (Manual) Monocytes # (Manual) Eosinophils # (Manual) PT INR APTT D-Dimer Heparin Anti-Xa Level ABG pH POC ABG pCO2 POC ABG pO2 ABG pO2 ABG HCO3 ABG O2 Saturation ABG Base Excess ABG Hemoglobin ABG Oxyhemoglobin ABG Sodium ABG Potassium ABG Chloride ABG Glucose Oxyhemoglobin Carboxyhemoglobin Sodium Potassium Chloride Carbon Dioxide BUN Creatinine Glucose POC Glucose Lactic Acid Calcium Magnesium Ferritin 05098.0 H Total Bilirubin Direct Bilirubin AST ALT Alkaline Phosphatase Lactate Dehydrogenase 1523 H C-Reactive Protein 12.90 H Total Protein Albumin Triglycerides Lipase Arterial Blood Glucose Arterial Blood Ionized Calcium Urine WBC (Auto) Coronavirus (PCR) SARS-CoV-2 IgG Ab Reactive A Crossmatch 05/13/20 05/13/20 05/15/20 05:20 05:20 08:15 WBC RBC Hgb Hct MCV MCH MCHC RDW Lymph % (Auto) Hendricks % (Auto) Lymph # (Auto) Hendricks # (Auto) Baso # (Auto) Seg Neutrophils % Seg Neuts % (Manual) Lymphocytes % (Manual) Nucleated RBC % Seg Neutrophils # Seg Neutrophils # Man Lymphocytes # (Manual) Monocytes # (Manual) Eosinophils # (Manual) PT INR APTT D-Dimer > 48386 H 5318.28 H Heparin Anti-Xa Level ABG pH POC ABG pCO2 POC ABG pO2 ABG pO2 ABG HCO3 ABG O2 Saturation ABG Base Excess ABG Hemoglobin ABG Oxyhemoglobin ABG Sodium ABG Potassium ABG Chloride ABG Glucose Oxyhemoglobin Carboxyhemoglobin Sodium Potassium Chloride Carbon Dioxide 32 H BUN 30 H Creatinine Glucose 156 H POC Glucose Lactic Acid Calcium Magnesium 2.60 H Ferritin Total Bilirubin 1.40 H Direct Bilirubin AST 121 H ALT 119 H Alkaline Phosphatase Lactate Dehydrogenase 957 H C-Reactive Protein 4.00 H Total Protein Albumin 3.0 L Triglycerides Lipase Arterial Blood Glucose Arterial Blood Ionized Calcium Urine WBC (Auto) Coronavirus (PCR) SARS-CoV-2 IgG Ab Crossmatch 05/15/20 05/15/20 05/15/20 08:15 08:15 08:15 WBC 12.4 H RBC Hgb Hct MCV 98 H MCH 33 H MCHC RDW Lymph % (Auto) 9.7 L Hendricks % (Auto) Lymph # (Auto) Hendricks # (Auto) Baso # (Auto) Seg Neutrophils % 86.8 H Seg Neuts % (Manual) Lymphocytes % (Manual) Nucleated RBC % Seg Neutrophils # 10.8 H Seg Neutrophils # Man Lymphocytes # (Manual) Monocytes # (Manual) Eosinophils # (Manual) PT INR APTT D-Dimer Heparin Anti-Xa Level ABG pH POC ABG pCO2 POC ABG pO2 ABG pO2 ABG HCO3 ABG O2 Saturation ABG Base Excess ABG Hemoglobin ABG Oxyhemoglobin ABG Sodium ABG Potassium ABG Chloride ABG Glucose Oxyhemoglobin Carboxyhemoglobin Sodium Potassium Chloride 94.8 L Carbon Dioxide 32 H BUN 22 H Creatinine Glucose 115 H POC Glucose Lactic Acid Calcium 8.3 L Magnesium Ferritin 2494.0 H Total Bilirubin Direct Bilirubin AST 73 H ALT 121 H Alkaline Phosphatase Lactate Dehydrogenase 835 H C-Reactive Protein 3.40 H Total Protein 6.1 L Albumin 3.0 L Triglycerides Lipase Arterial Blood Glucose Arterial Blood Ionized Calcium Urine WBC (Auto) Coronavirus (PCR) SARS-CoV-2 IgG Ab Crossmatch 05/17/20 05/17/20 05/17/20 05:50 05:50 05:50 WBC RBC Hgb Hct MCV MCH MCHC RDW Lymph % (Auto) Hendricks % (Auto) Lymph # (Auto) Hendricks # (Auto) Baso # (Auto) Seg Neutrophils % Seg Neuts % (Manual) Lymphocytes % (Manual) Nucleated RBC % Seg Neutrophils # Seg Neutrophils # Man Lymphocytes # (Manual) Monocytes # (Manual) Eosinophils # (Manual) PT INR APTT D-Dimer 2911.42 H Heparin Anti-Xa Level ABG pH POC ABG pCO2 POC ABG pO2 ABG pO2 ABG HCO3 ABG O2 Saturation ABG Base Excess ABG Hemoglobin ABG Oxyhemoglobin ABG Sodium ABG Potassium ABG Chloride ABG Glucose Oxyhemoglobin Carboxyhemoglobin Sodium 136 L Potassium Chloride 96.0 L Carbon Dioxide 34 H BUN 22 H Creatinine Glucose 140 H POC Glucose Lactic Acid Calcium Magnesium Ferritin 2082.0 H Total Bilirubin Direct Bilirubin AST ALT 75 H Alkaline Phosphatase Lactate Dehydrogenase 601 H C-Reactive Protein 2.70 H Total Protein Albumin 2.9 L Triglycerides Lipase Arterial Blood Glucose Arterial Blood Ionized Calcium Urine WBC (Auto) Coronavirus (PCR) SARS-CoV-2 IgG Ab Crossmatch 05/17/20 05/18/20 05/20/20 05:50 12:22 08:16 WBC RBC Hgb Hct MCV 98 H MCH 33 H MCHC RDW Lymph % (Auto) 8.0 L Hendricks % (Auto) Lymph # (Auto) 0.8 L Hendricks # (Auto) Baso # (Auto) Seg Neutrophils % 89.3 H Seg Neuts % (Manual) Lymphocytes % (Manual) Nucleated RBC % Seg Neutrophils # 8.8 H Seg Neutrophils # Man Lymphocytes # (Manual) Monocytes # (Manual) Eosinophils # (Manual) PT INR APTT D-Dimer 1887.82 H Heparin Anti-Xa Level ABG pH POC ABG pCO2 POC ABG pO2 ABG pO2 ABG HCO3 ABG O2 Saturation ABG Base Excess ABG Hemoglobin ABG Oxyhemoglobin ABG Sodium ABG Potassium ABG Chloride ABG Glucose Oxyhemoglobin Carboxyhemoglobin Sodium Potassium Chloride Carbon Dioxide BUN Creatinine Glucose POC Glucose 178 H Lactic Acid Calcium Magnesium Ferritin Total Bilirubin Direct Bilirubin AST ALT Alkaline Phosphatase Lactate Dehydrogenase C-Reactive Protein Total Protein Albumin Triglycerides Lipase Arterial Blood Glucose Arterial Blood Ionized Calcium Urine WBC (Auto) Coronavirus (PCR) SARS-CoV-2 IgG Ab Crossmatch 05/20/20 05/20/20 05/21/20 08:16 08:16 21:10 WBC RBC Hgb Hct MCV MCH MCHC RDW Lymph % (Auto) Hendricks % (Auto) Lymph # (Auto) Hendricks # (Auto) Baso # (Auto) Seg Neutrophils % Seg Neuts % (Manual) Lymphocytes % (Manual) Nucleated RBC % Seg Neutrophils # Seg Neutrophils # Man Lymphocytes # (Manual) Monocytes # (Manual) Eosinophils # (Manual) PT INR APTT D-Dimer Heparin Anti-Xa Level ABG pH 7.483 H POC ABG pCO2 POC ABG pO2 ABG pO2 50.0 L ABG HCO3 27.0 H ABG O2 Saturation 86.2 L ABG Base Excess 3.7 H ABG Hemoglobin ABG Oxyhemoglobin ABG Sodium ABG Potassium ABG Chloride ABG Glucose Oxyhemoglobin 84.2 L Carboxyhemoglobin Sodium Potassium Chloride Carbon Dioxide BUN Creatinine Glucose POC Glucose Lactic Acid Calcium Magnesium Ferritin 1960.0 H Total Bilirubin Direct Bilirubin AST ALT Alkaline Phosphatase Lactate Dehydrogenase 705 H C-Reactive Protein 3.10 H Total Protein Albumin Triglycerides Lipase Arterial Blood Glucose Arterial Blood Ionized Calcium Urine WBC (Auto) Coronavirus (PCR) SARS-CoV-2 IgG Ab Crossmatch 05/22/20 05/22/20 05/22/20 04:01 07:53 07:53 WBC 19.2 H RBC Hgb Hct MCV 98 H MCH 34 H MCHC RDW Lymph % (Auto) Hendricks % (Auto) Lymph # (Auto) Hendricks # (Auto) Baso # (Auto) Seg Neutrophils % Seg Neuts % (Manual) 96.0 H Lymphocytes % (Manual) 1.0 L Nucleated RBC % Seg Neutrophils # Seg Neutrophils # Man 18.4 H Lymphocytes # (Manual) 0.2 L Monocytes # (Manual) Eosinophils # (Manual) PT INR APTT D-Dimer Heparin Anti-Xa Level ABG pH POC ABG pCO2 53.8 H POC ABG pO2 125.5 H ABG pO2 ABG HCO3 ABG O2 Saturation ABG Base Excess ABG Hemoglobin ABG Oxyhemoglobin ABG Sodium 131.8 L ABG Potassium 4.8 H ABG Chloride 94.0 L ABG Glucose 163 H Oxyhemoglobin Carboxyhemoglobin Sodium 131 L Potassium Chloride 93.4 L Carbon Dioxide BUN 40 H Creatinine Glucose 176 H POC Glucose Lactic Acid Calcium Magnesium 2.70 H Ferritin Total Bilirubin 1.80 H Direct Bilirubin AST 45 H ALT 116 H Alkaline Phosphatase 181 H Lactate Dehydrogenase C-Reactive Protein Total Protein Albumin 2.6 L Triglycerides Lipase Arterial Blood Glucose 163 H Arterial Blood Ionized Calcium 4.5 L Urine WBC (Auto) Coronavirus (PCR) SARS-CoV-2 IgG Ab Crossmatch 05/23/20 05/24/2020 04:17 03:07 04:08 WBC RBC Hgb Hct MCV MCH MCHC RDW Lymph % (Auto) Hendricks % (Auto) Lymph # (Auto) Hendricks # (Auto) Baso # (Auto) Seg Neutrophils % Seg Neuts % (Manual) Lymphocytes % (Manual) Nucleated RBC % Seg Neutrophils # Seg Neutrophils # Man Lymphocytes # (Manual) Monocytes # (Manual) Eosinophils # (Manual) PT INR APTT D-Dimer Heparin Anti-Xa Level ABG pH 7.328 L POC ABG pCO2 POC ABG pO2 ABG pO2 72.8 L 73.4 L ABG HCO3 31.0 H 34.0 H ABG O2 Saturation 93.5 L ABG Base Excess 3.5 H 7.7 H ABG Hemoglobin 13.3 L 12.1 L ABG Oxyhemoglobin ABG Sodium ABG Potassium ABG Chloride ABG Glucose Oxyhemoglobin 91.5 L 94.3 L Carboxyhemoglobin Sodium Potassium Chloride Carbon Dioxide BUN Creatinine Glucose POC Glucose 155 H Lactic Acid Calcium Magnesium Ferritin Total Bilirubin Direct Bilirubin AST ALT Alkaline Phosphatase Lactate Dehydrogenase C-Reactive Protein Total Protein Albumin Triglycerides Lipase Arterial Blood Glucose Arterial Blood Ionized Calcium Urine WBC (Auto) Coronavirus (PCR) SARS-CoV-2 IgG Ab Crossmatch 05/24/20 05/24/20 05/24/20 09:33 12:21 17:52 WBC RBC Hgb Hct MCV MCH MCHC RDW Lymph % (Auto) Hendricks % (Auto) Lymph # (Auto) Hendricks # (Auto) Baso # (Auto) Seg Neutrophils % Seg Neuts % (Manual) Lymphocytes % (Manual) Nucleated RBC % Seg Neutrophils # Seg Neutrophils # Man Lymphocytes # (Manual) Monocytes # (Manual) Eosinophils # (Manual) PT INR APTT D-Dimer Heparin Anti-Xa Level ABG pH POC ABG pCO2 POC ABG pO2 ABG pO2 ABG HCO3 ABG O2 Saturation ABG Base Excess ABG Hemoglobin ABG Oxyhemoglobin ABG Sodium ABG Potassium ABG Chloride ABG Glucose Oxyhemoglobin Carboxyhemoglobin Sodium Potassium Chloride Carbon Dioxide 34 H D BUN 28 H Creatinine 0.7 L Glucose 168 H POC Glucose 173 H 164 H Lactic Acid Calcium Magnesium Ferritin Total Bilirubin Direct Bilirubin AST ALT Alkaline Phosphatase Lactate Dehydrogenase C-Reactive Protein Total Protein Albumin Triglycerides Lipase Arterial Blood Glucose Arterial Blood Ionized Calcium Urine WBC (Auto) Coronavirus (PCR) SARS-CoV-2 IgG Ab Crossmatch 05/24/20 05/25/20 05/25/20 23:47 04:29 05:46 WBC RBC Hgb Hct MCV MCH MCHC RDW Lymph % (Auto) Hendricks % (Auto) Lymph # (Auto) Hendricks # (Auto) Baso # (Auto) Seg Neutrophils % Seg Neuts % (Manual) Lymphocytes % (Manual) Nucleated RBC % Seg Neutrophils # Seg Neutrophils # Man Lymphocytes # (Manual) Monocytes # (Manual) Eosinophils # (Manual) PT INR APTT D-Dimer Heparin Anti-Xa Level ABG pH POC ABG pCO2 68.6 H POC ABG pO2 ABG pO2 ABG HCO3 ABG O2 Saturation ABG Base Excess ABG Hemoglobin ABG Oxyhemoglobin ABG Sodium ABG Potassium 4.7 H ABG Chloride ABG Glucose 226 H Oxyhemoglobin Carboxyhemoglobin Sodium Potassium Chloride Carbon Dioxide BUN Creatinine Glucose POC Glucose 171 H 201 H Lactic Acid Calcium Magnesium Ferritin Total Bilirubin Direct Bilirubin AST ALT Alkaline Phosphatase Lactate Dehydrogenase C-Reactive Protein Total Protein Albumin Triglycerides Lipase Arterial Blood Glucose 226 H Arterial Blood Ionized Calcium Urine WBC (Auto) Coronavirus (PCR) SARS-CoV-2 IgG Ab Crossmatch 05/25/20 05/25/20 05/25/20 08:37 08:37 12:38 WBC 12.0 H RBC 3.64 L Hgb Hct MCV 99 H MCH 33 H MCHC RDW Lymph % (Auto) Hendricks % (Auto) Lymph # (Auto) Hendricks # (Auto) Baso # (Auto) Seg Neutrophils % Seg Neuts % (Manual) Lymphocytes % (Manual) Nucleated RBC % Seg Neutrophils # Seg Neutrophils # Man Lymphocytes # (Manual) Monocytes # (Manual) Eosinophils # (Manual) PT INR APTT D-Dimer Heparin Anti-Xa Level ABG pH POC ABG pCO2 POC ABG pO2 ABG pO2 ABG HCO3 ABG O2 Saturation ABG Base Excess ABG Hemoglobin ABG Oxyhemoglobin ABG Sodium ABG Potassium ABG Chloride ABG Glucose Oxyhemoglobin Carboxyhemoglobin Sodium Potassium Chloride 97.3 L Carbon Dioxide 35 H BUN 25 H Creatinine 0.7 L Glucose 191 H POC Glucose 182 H Lactic Acid Calcium Magnesium Ferritin Total Bilirubin Direct Bilirubin AST ALT Alkaline Phosphatase Lactate Dehydrogenase C-Reactive Protein Total Protein Albumin Triglycerides Lipase Arterial Blood Glucose Arterial Blood Ionized Calcium Urine WBC (Auto) Coronavirus (PCR) SARS-CoV-2 IgG Ab Crossmatch 05/25/20 05/26/20 05/26/20 18:16 00:06 04:50 WBC RBC Hgb Hct MCV MCH MCHC RDW Lymph % (Auto) Hendricks % (Auto) Lymph # (Auto) Hendricks # (Auto) Baso # (Auto) Seg Neutrophils % Seg Neuts % (Manual) Lymphocytes % (Manual) Nucleated RBC % Seg Neutrophils # Seg Neutrophils # Man Lymphocytes # (Manual) Monocytes # (Manual) Eosinophils # (Manual) PT INR APTT D-Dimer Heparin Anti-Xa Level ABG pH POC ABG pCO2 POC ABG pO2 ABG pO2 221.5 H ABG HCO3 40.4 H ABG O2 Saturation 99.3 H ABG Base Excess 12.8 H ABG Hemoglobin 10.4 L ABG Oxyhemoglobin ABG Sodium ABG Potassium ABG Chloride ABG Glucose Oxyhemoglobin Carboxyhemoglobin Sodium Potassium Chloride Carbon Dioxide BUN Creatinine Glucose POC Glucose 176 H 152 H Lactic Acid Calcium Magnesium Ferritin Total Bilirubin Direct Bilirubin AST ALT Alkaline Phosphatase Lactate Dehydrogenase C-Reactive Protein Total Protein Albumin Triglycerides Lipase Arterial Blood Glucose Arterial Blood Ionized Calcium Urine WBC (Auto) Coronavirus (PCR) SARS-CoV-2 IgG Ab Crossmatch 05/26/20 05/26/20 05/26/20 06:11 07:51 07:51 WBC 13.4 H RBC 3.64 L Hgb Hct MCV 98 H MCH 33 H MCHC RDW Lymph % (Auto) [place] % (Auto) Lymph # (Auto) [place] # (Auto) Baso # (Auto) Seg Neutrophils % Seg Neuts % (Manual) Lymphocytes % (Manual) Nucleated RBC % Seg Neutrophils # Seg Neutrophils # Man Lymphocytes # (Manual) Monocytes # (Manual) Eosinophils # (Manual) PT INR APTT D-Dimer Heparin Anti-Xa Level ABG pH POC ABG pCO2 POC ABG pO2 ABG pO2 ABG HCO3 ABG O2 Saturation ABG Base Excess ABG Hemoglobin ABG Oxyhemoglobin ABG Sodium ABG Potassium ABG Chloride ABG Glucose Oxyhemoglobin Carboxyhemoglobin Sodium Potassium Chloride 96.6 L Carbon Dioxide 39 H BUN 29 H Creatinine 0.7 L Glucose 174 H POC Glucose 165 H Lactic Acid Calcium Magnesium Ferritin Total Bilirubin Direct Bilirubin AST ALT Alkaline Phosphatase Lactate Dehydrogenase C-Reactive Protein Total Protein Albumin Triglycerides Lipase Arterial Blood Glucose Arterial Blood Ionized Calcium Urine WBC (Auto) Coronavirus (PCR) SARS-CoV-2 IgG Ab Crossmatch 05/26/20 05/27/20 05/27/20 23:23 03:43 05:29 WBC RBC Hgb Hct MCV MCH MCHC RDW Lymph % (Auto) [place] % (Auto) Lymph # (Auto) [place] # (Auto) Baso # (Auto) Seg Neutrophils % Seg Neuts % (Manual) Lymphocytes % (Manual) Nucleated RBC % Seg Neutrophils # Seg Neutrophils # Man Lymphocytes # (Manual) Monocytes # (Manual) Eosinophils # (Manual) PT INR APTT D-Dimer Heparin Anti-Xa Level ABG pH 7.480 H POC ABG pCO2 52.4 H POC ABG pO2 61.4 L ABG pO2 ABG HCO3 ABG O2 Saturation ABG Base Excess ABG Hemoglobin ABG Oxyhemoglobin ABG Sodium 134.9 L ABG Potassium ABG Chloride 95.0 L ABG Glucose 221 H Oxyhemoglobin Carboxyhemoglobin Sodium Potassium Chloride Carbon Dioxide BUN Creatinine Glucose POC Glucose 169 H 227 H Lactic Acid Calcium Magnesium Ferritin Total Bilirubin Direct Bilirubin AST ALT Alkaline Phosphatase Lactate Dehydrogenase C-Reactive Protein Total Protein Albumin Triglycerides Lipase Arterial Blood Glucose 221 H Arterial Blood Ionized Calcium 4.5 L Urine WBC (Auto) Coronavirus (PCR) SARS-CoV-2 IgG Ab Crossmatch 05/27/20 05/27/20 05/27/20 07:19 12:18 13:50 WBC RBC Hgb Hct MCV MCH MCHC RDW Lymph % (Auto) [place] % (Auto) Lymph # (Auto) [place] # (Auto) Baso # (Auto) Seg Neutrophils % Seg Neuts % (Manual) Lymphocytes % (Manual) Nucleated RBC % Seg Neutrophils # Seg Neutrophils # Man Lymphocytes # (Manual) Monocytes # (Manual) Eosinophils # (Manual) PT INR APTT D-Dimer Heparin Anti-Xa Level ABG pH POC ABG pCO2 POC ABG pO2 ABG pO2 ABG HCO3 ABG O2 Saturation ABG Base Excess ABG Hemoglobin ABG Oxyhemoglobin ABG Sodium ABG Potassium ABG Chloride ABG Glucose Oxyhemoglobin Carboxyhemoglobin Sodium Potassium Chloride Carbon Dioxide BUN Creatinine Glucose POC Glucose 114 H 148 H Lactic Acid Calcium Magnesium Ferritin Total Bilirubin Direct Bilirubin AST ALT Alkaline Phosphatase Lactate Dehydrogenase C-Reactive Protein Total Protein Albumin Triglycerides 247 H Lipase Arterial Blood Glucose Arterial Blood Ionized Calcium Urine WBC (Auto) Coronavirus (PCR) SARS-CoV-2 IgG Ab Crossmatch 05/28/20 05/28/20 05/28/20 00:13 04:16 05:22 WBC RBC Hgb Hct MCV MCH MCHC RDW Lymph % (Auto) [place] % (Auto) Lymph # (Auto) [place] # (Auto) Baso # (Auto) Seg Neutrophils % Seg Neuts % (Manual) Lymphocytes % (Manual) Nucleated RBC % Seg Neutrophils # Seg Neutrophils # Man Lymphocytes # (Manual) Monocytes # (Manual) Eosinophils # (Manual) PT INR APTT D-Dimer Heparin Anti-Xa Level ABG pH POC ABG pCO2 64.4 H POC ABG pO2 60.5 L ABG pO2 ABG HCO3 ABG O2 Saturation ABG Base Excess ABG Hemoglobin ABG Oxyhemoglobin ABG Sodium ABG Potassium ABG Chloride 95.0 L ABG Glucose 209 H Oxyhemoglobin Carboxyhemoglobin Sodium Potassium Chloride Carbon Dioxide BUN Creatinine Glucose POC Glucose 155 H 186 H Lactic Acid Calcium Magnesium Ferritin Total Bilirubin Direct Bilirubin AST ALT Alkaline Phosphatase Lactate Dehydrogenase C-Reactive Protein Total Protein Albumin Triglycerides Lipase Arterial Blood Glucose 209 H Arterial Blood Ionized Calcium Urine WBC (Auto) Coronavirus (PCR) SARS-CoV-2 IgG Ab Crossmatch 05/28/20 05/28/20 05/29/20 12:45 17:39 00:37 WBC RBC Hgb Hct MCV MCH MCHC RDW Lymph % (Auto) [place] % (Auto) Lymph # (Auto) [place] # (Auto) Baso # (Auto) Seg Neutrophils % Seg Neuts % (Manual) Lymphocytes % (Manual) Nucleated RBC % Seg Neutrophils # Seg Neutrophils # Man Lymphocytes # (Manual) Monocytes # (Manual) Eosinophils # (Manual) PT INR APTT D-Dimer Heparin Anti-Xa Level ABG pH POC ABG pCO2 POC ABG pO2 ABG pO2 ABG HCO3 ABG O2 Saturation ABG Base Excess ABG Hemoglobin ABG Oxyhemoglobin ABG Sodium ABG Potassium ABG Chloride ABG Glucose Oxyhemoglobin Carboxyhemoglobin Sodium Potassium Chloride Carbon Dioxide BUN Creatinine Glucose POC Glucose 143 H 164 H 221 H Lactic Acid Calcium Magnesium Ferritin Total Bilirubin Direct Bilirubin AST ALT Alkaline Phosphatase Lactate Dehydrogenase C-Reactive Protein Total Protein Albumin Triglycerides Lipase Arterial Blood Glucose Arterial Blood Ionized Calcium Urine WBC (Auto) Coronavirus (PCR) SARS-CoV-2 IgG Ab Crossmatch 05/29/20 05/29/20 05/29/20 04:15 05:33 12:34 WBC RBC Hgb Hct MCV MCH MCHC RDW Lymph % (Auto) [place] % (Auto) Lymph # (Auto) [place] # (Auto) Baso # (Auto) Seg Neutrophils % Seg Neuts % (Manual) Lymphocytes % (Manual) Nucleated RBC % Seg Neutrophils # Seg Neutrophils # Man Lymphocytes # (Manual) Monocytes # (Manual) Eosinophils # (Manual) PT INR APTT D-Dimer Heparin Anti-Xa Level ABG pH 7.463 H POC ABG pCO2 56.3 H POC ABG pO2 81.2 L ABG pO2 ABG HCO3 ABG O2 Saturation ABG Base Excess ABG Hemoglobin ABG Oxyhemoglobin ABG Sodium ABG Potassium ABG Chloride 96.0 L ABG Glucose 194 H Oxyhemoglobin Carboxyhemoglobin Sodium Potassium Chloride Carbon Dioxide BUN Creatinine Glucose POC Glucose 133 H 221 H Lactic Acid Calcium Magnesium Ferritin Total Bilirubin Direct Bilirubin AST ALT Alkaline Phosphatase Lactate Dehydrogenase C-Reactive Protein Total Protein Albumin Triglycerides Lipase Arterial Blood Glucose 194 H Arterial Blood Ionized Calcium 4.5 L Urine WBC (Auto) Coronavirus (PCR) SARS-CoV-2 IgG Ab Crossmatch 05/29/20 05/30/20 05/30/20 18:07 00:12 05:38 WBC RBC Hgb Hct MCV MCH MCHC RDW Lymph % (Auto) [place] % (Auto) Lymph # (Auto) [place] # (Auto) Baso # (Auto) Seg Neutrophils % Seg Neuts % (Manual) Lymphocytes % (Manual) Nucleated RBC % Seg Neutrophils # Seg Neutrophils # Man Lymphocytes # (Manual) Monocytes # (Manual) Eosinophils # (Manual) PT INR APTT D-Dimer Heparin Anti-Xa Level ABG pH POC ABG pCO2 POC ABG pO2 ABG pO2 ABG HCO3 ABG O2 Saturation ABG Base Excess ABG Hemoglobin ABG Oxyhemoglobin ABG Sodium ABG Potassium ABG Chloride ABG Glucose Oxyhemoglobin Carboxyhemoglobin Sodium Potassium Chloride Carbon Dioxide BUN Creatinine Glucose POC Glucose 162 H 190 H 208 H Lactic Acid Calcium Magnesium Ferritin Total Bilirubin Direct Bilirubin AST ALT Alkaline Phosphatase Lactate Dehydrogenase C-Reactive Protein Total Protein Albumin Triglycerides Lipase Arterial Blood Glucose Arterial Blood Ionized Calcium Urine WBC (Auto) Coronavirus (PCR) SARS-CoV-2 IgG Ab Crossmatch 05/30/20 05/30/20 05/30/20 09:30 11:35 11:54 WBC 12.4 H RBC 3.48 L Hgb 11.3 L Hct 34.6 L MCV 99 H MCH 33 H MCHC RDW Lymph % (Auto) [place] % (Auto) Lymph # (Auto) [place] # (Auto) Baso # (Auto) Seg Neutrophils % Seg Neuts % (Manual) Lymphocytes % (Manual) Nucleated RBC % Seg Neutrophils # Seg Neutrophils # Man Lymphocytes # (Manual) Monocytes # (Manual) Eosinophils # (Manual) PT INR APTT D-Dimer Heparin Anti-Xa Level ABG pH 7.455 H POC ABG pCO2 57.5 H POC ABG pO2 81.5 L ABG pO2 ABG HCO3 ABG O2 Saturation ABG Base Excess ABG Hemoglobin ABG Oxyhemoglobin ABG Sodium ABG Potassium ABG Chloride 96.0 L ABG Glucose 204 H Oxyhemoglobin Carboxyhemoglobin Sodium Potassium Chloride Carbon Dioxide BUN Creatinine Glucose POC Glucose 183 H Lactic Acid Calcium Magnesium Ferritin Total Bilirubin Direct Bilirubin AST ALT Alkaline Phosphatase Lactate Dehydrogenase C-Reactive Protein Total Protein Albumin Triglycerides Lipase Arterial Blood Glucose 204 H Arterial Blood Ionized Calcium Urine WBC (Auto) Coronavirus (PCR) SARS-CoV-2 IgG Ab Crossmatch 05/30/20 05/31/20 05/31/20 18:01 00:10 03:22 WBC RBC Hgb Hct MCV MCH MCHC RDW Lymph % (Auto) [place] % (Auto) Lymph # (Auto) [place] # (Auto) Baso # (Auto) Seg Neutrophils % Seg Neuts % (Manual) Lymphocytes % (Manual) Nucleated RBC % Seg Neutrophils # Seg Neutrophils # Man Lymphocytes # (Manual) Monocytes # (Manual) Eosinophils # (Manual) PT INR APTT D-Dimer Heparin Anti-Xa Level ABG pH POC ABG pCO2 60.4 H POC ABG pO2 71.5 L ABG pO2 ABG HCO3 ABG O2 Saturation ABG Base Excess ABG Hemoglobin ABG Oxyhemoglobin ABG Sodium ABG Potassium ABG Chloride 96.0 L ABG Glucose 169 H Oxyhemoglobin Carboxyhemoglobin Sodium Potassium Chloride Carbon Dioxide BUN Creatinine Glucose POC Glucose 184 H 135 H Lactic Acid Calcium Magnesium Ferritin Total Bilirubin Direct Bilirubin AST ALT Alkaline Phosphatase Lactate Dehydrogenase C-Reactive Protein Total Protein Albumin Triglycerides Lipase Arterial Blood Glucose 169 H Arterial Blood Ionized Calcium 4.5 L Urine WBC (Auto) Coronavirus (PCR) SARS-CoV-2 IgG Ab Crossmatch 05/31/20 05/31/20 05/31/20 05:24 11:18 14:41 WBC RBC Hgb Hct MCV MCH MCHC RDW Lymph % (Auto) [place] % (Auto) Lymph # (Auto) [place] # (Auto) Baso # (Auto) Seg Neutrophils % Seg Neuts % (Manual) Lymphocytes % (Manual) Nucleated RBC % Seg Neutrophils # Seg Neutrophils # Man Lymphocytes # (Manual) Monocytes # (Manual) Eosinophils # (Manual) PT INR APTT D-Dimer Heparin Anti-Xa Level ABG pH POC ABG pCO2 POC ABG pO2 ABG pO2 ABG HCO3 ABG O2 Saturation ABG Base Excess ABG Hemoglobin ABG Oxyhemoglobin ABG Sodium ABG Potassium ABG Chloride ABG Glucose Oxyhemoglobin Carboxyhemoglobin Sodium Potassium Chloride 96.8 L Carbon Dioxide 37 H BUN 31 H Creatinine 0.6 L Glucose 213 H POC Glucose 164 H 208 H Lactic Acid Calcium Magnesium Ferritin Total Bilirubin Direct Bilirubin AST ALT Alkaline Phosphatase Lactate Dehydrogenase C-Reactive Protein Total Protein Albumin Triglycerides Lipase Arterial Blood Glucose Arterial Blood Ionized Calcium Urine WBC (Auto) Coronavirus (PCR) SARS-CoV-2 IgG Ab Crossmatch 05/31/20 05/31/20 06/01/20 17:37 23:47 03:48 WBC RBC Hgb Hct MCV MCH MCHC RDW Lymph % (Auto) [place] % (Auto) Lymph # (Auto) [place] # (Auto) Baso # (Auto) Seg Neutrophils % Seg Neuts % (Manual) Lymphocytes % (Manual) Nucleated RBC % Seg Neutrophils # Seg Neutrophils # Man Lymphocytes # (Manual) Monocytes # (Manual) Eosinophils # (Manual) PT INR APTT D-Dimer Heparin Anti-Xa Level ABG pH POC ABG pCO2 59.7 H POC ABG pO2 73.9 L ABG pO2 ABG HCO3 ABG O2 Saturation ABG Base Excess ABG Hemoglobin ABG Oxyhemoglobin ABG Sodium ABG Potassium ABG Chloride 95.0 L ABG Glucose 256 H Oxyhemoglobin Carboxyhemoglobin Sodium Potassium Chloride Carbon Dioxide BUN Creatinine Glucose POC Glucose 168 H 178 H Lactic Acid Calcium Magnesium Ferritin Total Bilirubin Direct Bilirubin AST ALT Alkaline Phosphatase Lactate Dehydrogenase C-Reactive Protein Total Protein Albumin Triglycerides Lipase Arterial Blood Glucose 256 H Arterial Blood Ionized Calcium Urine WBC (Auto) Coronavirus (PCR) SARS-CoV-2 IgG Ab Crossmatch 06/01/20 06/01/20 06/01/20 05:01 07:47 07:47 WBC 14.4 H RBC 3.46 L Hgb 11.1 L Hct 34.3 L MCV 99 H MCH MCHC RDW Lymph % (Auto) [place] % (Auto) Lymph # (Auto) [place] # (Auto) Baso # (Auto) Seg Neutrophils % Seg Neuts % (Manual) 86.0 H Lymphocytes % (Manual) 9.0 L Nucleated RBC % Seg Neutrophils # Seg Neutrophils # Man 12.4 H Lymphocytes # (Manual) Monocytes # (Manual) Eosinophils # (Manual) PT INR APTT D-Dimer Heparin Anti-Xa Level ABG pH POC ABG pCO2 POC ABG pO2 ABG pO2 ABG HCO3 ABG O2 Saturation ABG Base Excess ABG Hemoglobin ABG Oxyhemoglobin ABG Sodium ABG Potassium ABG Chloride ABG Glucose Oxyhemoglobin Carboxyhemoglobin Sodium Potassium Chloride Carbon Dioxide BUN Creatinine Glucose POC Glucose 197 H Lactic Acid Calcium Magnesium Ferritin Total Bilirubin Direct Bilirubin AST ALT Alkaline Phosphatase Lactate Dehydrogenase C-Reactive Protein Total Protein Albumin Triglycerides 244 H Lipase Arterial Blood Glucose Arterial Blood Ionized Calcium Urine WBC (Auto) Coronavirus (PCR) SARS-CoV-2 IgG Ab Crossmatch 06/01/20 06/01/20 06/01/20 07:47 11:46 18:15 WBC RBC Hgb Hct MCV MCH MCHC RDW Lymph % (Auto) [place] % (Auto) Lymph # (Auto) [place] # (Auto) Baso # (Auto) Seg Neutrophils % Seg Neuts % (Manual) Lymphocytes % (Manual) Nucleated RBC % Seg Neutrophils # Seg Neutrophils # Man Lymphocytes # (Manual) Monocytes # (Manual) Eosinophils # (Manual) PT INR APTT D-Dimer Heparin Anti-Xa Level ABG pH POC ABG pCO2 POC ABG pO2 ABG pO2 ABG HCO3 ABG O2 Saturation ABG Base Excess ABG Hemoglobin ABG Oxyhemoglobin ABG Sodium ABG Potassium ABG Chloride ABG Glucose Oxyhemoglobin Carboxyhemoglobin Sodium Potassium Chloride 95.4 L Carbon Dioxide 35 H BUN 30 H Creatinine 0.5 L Glucose 214 H POC Glucose 181 H 221 H Lactic Acid Calcium Magnesium Ferritin Total Bilirubin Direct Bilirubin AST 54 H ALT 235 H Alkaline Phosphatase Lactate Dehydrogenase C-Reactive Protein Total Protein Albumin 2.9 L Triglycerides Lipase Arterial Blood Glucose Arterial Blood Ionized Calcium Urine WBC (Auto) Coronavirus (PCR) SARS-CoV-2 IgG Ab Crossmatch 06/01/20 06/02/20 06/02/20 23:12 04:00 05:31 WBC RBC Hgb Hct MCV MCH MCHC RDW Lymph % (Auto) [place] % (Auto) Lymph # (Auto) [place] # (Auto) Baso # (Auto) Seg Neutrophils % Seg Neuts % (Manual) Lymphocytes % (Manual) Nucleated RBC % Seg Neutrophils # Seg Neutrophils # Man Lymphocytes # (Manual) Monocytes # (Manual) Eosinophils # (Manual) PT INR APTT D-Dimer Heparin Anti-Xa Level ABG pH 7.465 H POC ABG pCO2 POC ABG pO2 ABG pO2 203.4 H ABG HCO3 41.2 H ABG O2 Saturation 99.3 H ABG Base Excess 15.1 H ABG Hemoglobin 11.5 L ABG Oxyhemoglobin ABG Sodium ABG Potassium ABG Chloride ABG Glucose Oxyhemoglobin Carboxyhemoglobin Sodium Potassium Chloride Carbon Dioxide BUN Creatinine Glucose POC Glucose 197 H 184 H Lactic Acid Calcium Magnesium Ferritin Total Bilirubin Direct Bilirubin AST ALT Alkaline Phosphatase Lactate Dehydrogenase C-Reactive Protein Total Protein Albumin Triglycerides Lipase Arterial Blood Glucose Arterial Blood Ionized Calcium Urine WBC (Auto) Coronavirus (PCR) SARS-CoV-2 IgG Ab Crossmatch 06/02/20 06/02/20 06/02/20 11:49 18:06 23:00 WBC RBC Hgb Hct MCV MCH MCHC RDW Lymph % (Auto) [place] % (Auto) Lymph # (Auto) [place] # (Auto) Baso # (Auto) Seg Neutrophils % Seg Neuts % (Manual) Lymphocytes % (Manual) Nucleated RBC % Seg Neutrophils # Seg Neutrophils # Man Lymphocytes # (Manual) Monocytes # (Manual) Eosinophils # (Manual) PT INR APTT D-Dimer Heparin Anti-Xa Level ABG pH POC ABG pCO2 POC ABG pO2 ABG pO2 ABG HCO3 ABG O2 Saturation ABG Base Excess ABG Hemoglobin ABG Oxyhemoglobin ABG Sodium ABG Potassium ABG Chloride ABG Glucose Oxyhemoglobin Carboxyhemoglobin Sodium Potassium Chloride Carbon Dioxide BUN Creatinine Glucose POC Glucose 195 H 177 H 228 H Lactic Acid Calcium Magnesium Ferritin Total Bilirubin Direct Bilirubin AST ALT Alkaline Phosphatase Lactate Dehydrogenase C-Reactive Protein Total Protein Albumin Triglycerides Lipase Arterial Blood Glucose Arterial Blood Ionized Calcium Urine WBC (Auto) Coronavirus (PCR) SARS-CoV-2 IgG Ab Crossmatch 06/03/20 06/03/20 06/03/20 03:58 05:19 12:21 WBC RBC Hgb Hct MCV MCH MCHC RDW Lymph % (Auto) [place] % (Auto) Lymph # (Auto) [place] # (Auto) Baso # (Auto) Seg Neutrophils % Seg Neuts % (Manual) Lymphocytes % (Manual) Nucleated RBC % Seg Neutrophils # Seg Neutrophils # Man Lymphocytes # (Manual) Monocytes # (Manual) Eosinophils # (Manual) PT INR APTT D-Dimer Heparin Anti-Xa Level ABG pH POC ABG pCO2 POC ABG pO2 ABG pO2 171.0 H ABG HCO3 42.8 H ABG O2 Saturation ABG Base Excess 15.6 H ABG Hemoglobin 12.3 L ABG Oxyhemoglobin ABG Sodium ABG Potassium ABG Chloride ABG Glucose Oxyhemoglobin Carboxyhemoglobin Sodium Potassium Chloride Carbon Dioxide BUN Creatinine Glucose POC Glucose 122 H 207 H Lactic Acid Calcium Magnesium Ferritin Total Bilirubin Direct Bilirubin AST ALT Alkaline Phosphatase Lactate Dehydrogenase C-Reactive Protein Total Protein Albumin Triglycerides Lipase Arterial Blood Glucose Arterial Blood Ionized Calcium Urine WBC (Auto) Coronavirus (PCR) SARS-CoV-2 IgG Ab Crossmatch 06/03/20 06/03/20 06/04/20 17:27 23:50 03:55 WBC RBC Hgb Hct MCV MCH MCHC RDW Lymph % (Auto) [place] % (Auto) Lymph # (Auto) [place] # (Auto) Baso # (Auto) Seg Neutrophils % Seg Neuts % (Manual) Lymphocytes % (Manual) Nucleated RBC % Seg Neutrophils # Seg Neutrophils # Man Lymphocytes # (Manual) Monocytes # (Manual) Eosinophils # (Manual) PT INR APTT D-Dimer Heparin Anti-Xa Level ABG pH POC ABG pCO2 POC ABG pO2 ABG pO2 117.2 H ABG HCO3 42.4 H ABG O2 Saturation ABG Base Excess 15.3 H ABG Hemoglobin 10.5 L ABG Oxyhemoglobin ABG Sodium ABG Potassium ABG Chloride ABG Glucose Oxyhemoglobin Carboxyhemoglobin Sodium Potassium Chloride Carbon Dioxide BUN Creatinine Glucose POC Glucose 157 H 214 H Lactic Acid Calcium Magnesium Ferritin Total Bilirubin Direct Bilirubin AST ALT Alkaline Phosphatase Lactate Dehydrogenase C-Reactive Protein Total Protein Albumin Triglycerides Lipase Arterial Blood Glucose Arterial Blood Ionized Calcium Urine WBC (Auto) Coronavirus (PCR) SARS-CoV-2 IgG Ab Crossmatch 06/04/20 06/04/20 06/04/20 05:49 11:41 17:30 WBC RBC Hgb Hct MCV MCH MCHC RDW Lymph % (Auto) [place] % (Auto) Lymph # (Auto) [place] # (Auto) Baso # (Auto) Seg Neutrophils % Seg Neuts % (Manual) Lymphocytes % (Manual) Nucleated RBC % Seg Neutrophils # Seg Neutrophils # Man Lymphocytes # (Manual) Monocytes # (Manual) Eosinophils # (Manual) PT INR APTT D-Dimer Heparin Anti-Xa Level ABG pH POC ABG pCO2 POC ABG pO2 ABG pO2 ABG HCO3 ABG O2 Saturation ABG Base Excess ABG Hemoglobin ABG Oxyhemoglobin ABG Sodium ABG Potassium ABG Chloride ABG Glucose Oxyhemoglobin Carboxyhemoglobin Sodium Potassium Chloride Carbon Dioxide BUN Creatinine Glucose POC Glucose 149 H 233 H 156 H Lactic Acid Calcium Magnesium Ferritin Total Bilirubin Direct Bilirubin AST ALT Alkaline Phosphatase Lactate Dehydrogenase C-Reactive Protein Total Protein Albumin Triglycerides Lipase Arterial Blood Glucose Arterial Blood Ionized Calcium Urine WBC (Auto) Coronavirus (PCR) SARS-CoV-2 IgG Ab Crossmatch 06/04/20 06/04/20 06/04/20 19:01 20:53 23:41 WBC RBC 3.18 L Hgb 10.8 L Hct 31.8 L MCV 100 H MCH 34 H MCHC RDW Lymph % (Auto) [place] % (Auto) Lymph # (Auto) [place] # (Auto) Baso # (Auto) Seg Neutrophils % Seg Neuts % (Manual) 86.0 H Lymphocytes % (Manual) 10.0 L Nucleated RBC % 1.0 H Seg Neutrophils # Seg Neutrophils # Man 8.5 H Lymphocytes # (Manual) 1.0 L Monocytes # (Manual) Eosinophils # (Manual) PT INR APTT D-Dimer Heparin Anti-Xa Level ABG pH POC ABG pCO2 POC ABG pO2 ABG pO2 ABG HCO3 ABG O2 Saturation ABG Base Excess ABG Hemoglobin ABG Oxyhemoglobin ABG Sodium ABG Potassium ABG Chloride ABG Glucose Oxyhemoglobin Carboxyhemoglobin Sodium Potassium 3.4 L D Chloride 96.5 L Carbon Dioxide 41 H* BUN 27 H Creatinine 0.5 L Glucose 173 H POC Glucose 217 H Lactic Acid Calcium Magnesium Ferritin Total Bilirubin Direct Bilirubin AST ALT Alkaline Phosphatase Lactate Dehydrogenase C-Reactive Protein Total Protein Albumin Triglycerides Lipase Arterial Blood Glucose Arterial Blood Ionized Calcium Urine WBC (Auto) Coronavirus (PCR) SARS-CoV-2 IgG Ab Crossmatch 06/05/20 06/05/20 06/05/20 06:05 11:54 12:35 WBC RBC Hgb Hct MCV MCH MCHC RDW Lymph % (Auto) [place] % (Auto) Lymph # (Auto) [place] # (Auto) Baso # (Auto) Seg Neutrophils % Seg Neuts % (Manual) Lymphocytes % (Manual) Nucleated RBC % Seg Neutrophils # Seg Neutrophils # Man Lymphocytes # (Manual) Monocytes # (Manual) Eosinophils # (Manual) PT INR APTT D-Dimer Heparin Anti-Xa Level ABG pH POC ABG pCO2 POC ABG pO2 ABG pO2 127.9 H ABG HCO3 41.1 H ABG O2 Saturation ABG Base Excess 13.0 H ABG Hemoglobin 13.4 L ABG Oxyhemoglobin ABG Sodium ABG Potassium ABG Chloride ABG Glucose Oxyhemoglobin Carboxyhemoglobin Sodium Potassium Chloride Carbon Dioxide BUN Creatinine Glucose POC Glucose 137 H 211 H Lactic Acid Calcium Magnesium Ferritin Total Bilirubin Direct Bilirubin AST ALT Alkaline Phosphatase Lactate Dehydrogenase C-Reactive Protein Total Protein Albumin Triglycerides Lipase Arterial Blood Glucose Arterial Blood Ionized Calcium Urine WBC (Auto) Coronavirus (PCR) SARS-CoV-2 IgG Ab Crossmatch 06/05/20 06/05/20 06/06/20 17:03 23:49 04:42 WBC RBC Hgb Hct MCV MCH MCHC RDW Lymph % (Auto) [place] % (Auto) Lymph # (Auto) [place] # (Auto) Baso # (Auto) Seg Neutrophils % Seg Neuts % (Manual) Lymphocytes % (Manual) Nucleated RBC % Seg Neutrophils # Seg Neutrophils # Man Lymphocytes # (Manual) Monocytes # (Manual) Eosinophils # (Manual) PT INR APTT D-Dimer Heparin Anti-Xa Level ABG pH POC ABG pCO2 56.1 H POC ABG pO2 52.5 L ABG pO2 ABG HCO3 ABG O2 Saturation ABG Base Excess ABG Hemoglobin 11.7 L ABG Oxyhemoglobin ABG Sodium ABG Potassium 3.3 L ABG Chloride 95.0 L ABG Glucose 156 H Oxyhemoglobin Carboxyhemoglobin Sodium Potassium Chloride Carbon Dioxide BUN Creatinine Glucose POC Glucose 159 H 194 H Lactic Acid Calcium Magnesium Ferritin Total Bilirubin Direct Bilirubin AST ALT Alkaline Phosphatase Lactate Dehydrogenase C-Reactive Protein Total Protein Albumin Triglycerides Lipase Arterial Blood Glucose 156 H Arterial Blood Ionized Calcium Urine WBC (Auto) Coronavirus (PCR) SARS-CoV-2 IgG Ab Crossmatch 06/06/20 06/06/20 06/06/20 05:57 12:06 17:38 WBC RBC Hgb Hct MCV MCH MCHC RDW Lymph % (Auto) [place] % (Auto) Lymph # (Auto) [place] # (Auto) Baso # (Auto) Seg Neutrophils % Seg Neuts % (Manual) Lymphocytes % (Manual) Nucleated RBC % Seg Neutrophils # Seg Neutrophils # Man Lymphocytes # (Manual) Monocytes # (Manual) Eosinophils # (Manual) PT INR APTT D-Dimer Heparin Anti-Xa Level ABG pH POC ABG pCO2 POC ABG pO2 ABG pO2 ABG HCO3 ABG O2 Saturation ABG Base Excess ABG Hemoglobin ABG Oxyhemoglobin ABG Sodium ABG Potassium ABG Chloride ABG Glucose Oxyhemoglobin Carboxyhemoglobin Sodium Potassium Chloride Carbon Dioxide BUN Creatinine Glucose POC Glucose 144 H 230 H 162 H Lactic Acid Calcium Magnesium Ferritin Total Bilirubin Direct Bilirubin AST ALT Alkaline Phosphatase Lactate Dehydrogenase C-Reactive Protein Total Protein Albumin Triglycerides Lipase Arterial Blood Glucose Arterial Blood Ionized Calcium Urine WBC (Auto) Coronavirus (PCR) SARS-CoV-2 IgG Ab Crossmatch 06/06/20 06/07/20 06/07/20 23:50 04:34 06:03 WBC RBC Hgb Hct MCV MCH MCHC RDW Lymph % (Auto) [place] % (Auto) Lymph # (Auto) [place] # (Auto) Baso # (Auto) Seg Neutrophils % Seg Neuts % (Manual) Lymphocytes % (Manual) Nucleated RBC % Seg Neutrophils # Seg Neutrophils # Man Lymphocytes # (Manual) Monocytes # (Manual) Eosinophils # (Manual) PT INR APTT D-Dimer Heparin Anti-Xa Level ABG pH 7.511 H POC ABG pCO2 53.5 H POC ABG pO2 114.5 H ABG pO2 ABG HCO3 ABG O2 Saturation ABG Base Excess ABG Hemoglobin 9.4 L ABG Oxyhemoglobin ABG Sodium 134.5 L ABG Potassium ABG Chloride 94.0 L ABG Glucose 186 H Oxyhemoglobin Carboxyhemoglobin Sodium Potassium Chloride Carbon Dioxide BUN Creatinine Glucose POC Glucose 181 H 155 H Lactic Acid Calcium Magnesium Ferritin Total Bilirubin Direct Bilirubin AST ALT Alkaline Phosphatase Lactate Dehydrogenase C-Reactive Protein Total Protein Albumin Triglycerides Lipase Arterial Blood Glucose 186 H Arterial Blood Ionized Calcium 4.5 L Urine WBC (Auto) Coronavirus (PCR) SARS-CoV-2 IgG Ab Crossmatch 06/07/20 06/07/20 06/07/20 13:41 14:58 14:58 WBC RBC 2.72 L Hgb 9.3 L Hct 27.2 L MCV 100 H MCH 34 H MCHC RDW Lymph % (Auto) Hendricks % (Auto) Lymph # (Auto) Hendricks # (Auto) Baso # (Auto) Seg Neutrophils % Seg Neuts % (Manual) Lymphocytes % (Manual) Nucleated RBC % Seg Neutrophils # Seg Neutrophils # Man Lymphocytes # (Manual) Monocytes # (Manual) Eosinophils # (Manual) PT INR APTT D-Dimer Heparin Anti-Xa Level ABG pH POC ABG pCO2 POC ABG pO2 ABG pO2 ABG HCO3 ABG O2 Saturation ABG Base Excess ABG Hemoglobin ABG Oxyhemoglobin ABG Sodium ABG Potassium ABG Chloride ABG Glucose Oxyhemoglobin Carboxyhemoglobin Sodium Potassium Chloride 93.5 L Carbon Dioxide 39 H BUN 22 H Creatinine 0.4 L Glucose 188 H POC Glucose 201 H Lactic Acid Calcium Magnesium Ferritin Total Bilirubin Direct Bilirubin AST 61 H ALT 273 H Alkaline Phosphatase Lactate Dehydrogenase C-Reactive Protein Total Protein 5.9 L Albumin 2.7 L Triglycerides Lipase Arterial Blood Glucose Arterial Blood Ionized Calcium Urine WBC (Auto) Coronavirus (PCR) SARS-CoV-2 IgG Ab Crossmatch 06/07/20 06/08/20 06/08/20 23:18 05:31 12:07 WBC RBC Hgb Hct MCV MCH MCHC RDW Lymph % (Auto) [place]ricks % (Auto) Lymph # (Auto) [place]ricks # (Auto) Baso # (Auto) Seg Neutrophils % Seg Neuts % (Manual) Lymphocytes % (Manual) Nucleated RBC % Seg Neutrophils # Seg Neutrophils # Man Lymphocytes # (Manual) Monocytes # (Manual) Eosinophils # (Manual) PT INR APTT D-Dimer Heparin Anti-Xa Level ABG pH POC ABG pCO2 POC ABG pO2 ABG pO2 ABG HCO3 ABG O2 Saturation ABG Base Excess ABG Hemoglobin ABG Oxyhemoglobin ABG Sodium ABG Potassium ABG Chloride ABG Glucose Oxyhemoglobin Carboxyhemoglobin Sodium Potassium Chloride Carbon Dioxide BUN Creatinine Glucose POC Glucose 214 H 129 H 179 H Lactic Acid Calcium Magnesium Ferritin Total Bilirubin Direct Bilirubin AST ALT Alkaline Phosphatase Lactate Dehydrogenase C-Reactive Protein Total Protein Albumin Triglycerides Lipase Arterial Blood Glucose Arterial Blood Ionized Calcium Urine WBC (Auto) Coronavirus (PCR) SARS-CoV-2 IgG Ab Crossmatch 06/08/20 06/08/20 06/09/20 18:18 23:35 05:42 WBC RBC Hgb Hct MCV MCH MCHC RDW Lymph % (Auto) [place]ricks % (Auto) Lymph # (Auto) [place]ricks # (Auto) Baso # (Auto) Seg Neutrophils % Seg Neuts % (Manual) Lymphocytes % (Manual) Nucleated RBC % Seg Neutrophils # Seg Neutrophils # Man Lymphocytes # (Manual) Monocytes # (Manual) Eosinophils # (Manual) PT INR APTT D-Dimer Heparin Anti-Xa Level ABG pH POC ABG pCO2 POC ABG pO2 ABG pO2 ABG HCO3 ABG O2 Saturation ABG Base Excess ABG Hemoglobin ABG Oxyhemoglobin ABG Sodium ABG Potassium ABG Chloride ABG Glucose Oxyhemoglobin Carboxyhemoglobin Sodium Potassium Chloride Carbon Dioxide BUN Creatinine Glucose POC Glucose 172 H 177 H 137 H Lactic Acid Calcium Magnesium Ferritin Total Bilirubin Direct Bilirubin AST ALT Alkaline Phosphatase Lactate Dehydrogenase C-Reactive Protein Total Protein Albumin Triglycerides Lipase Arterial Blood Glucose Arterial Blood Ionized Calcium Urine WBC (Auto) Coronavirus (PCR) SARS-CoV-2 IgG Ab Crossmatch 06/09/20 06/09/20 06/09/20 06:20 07:55 07:55 WBC 12.4 H RBC 3.26 L Hgb 11.1 L Hct 33.4 L D MCV 102 H MCH 34 H MCHC RDW Lymph % (Auto) [place]ricks % (Auto) Lymph # (Auto) [place]ricks # (Auto) Baso # (Auto) Seg Neutrophils % Seg Neuts % (Manual) Lymphocytes % (Manual) Nucleated RBC % Seg Neutrophils # Seg Neutrophils # Man Lymphocytes # (Manual) Monocytes # (Manual) Eosinophils # (Manual) PT INR APTT D-Dimer Heparin Anti-Xa Level ABG pH 7.466 H POC ABG pCO2 50.7 H POC ABG pO2 53.0 L ABG pO2 ABG HCO3 ABG O2 Saturation ABG Base Excess ABG Hemoglobin ABG Oxyhemoglobin ABG Sodium ABG Potassium 2.9 L ABG Chloride 93.0 L ABG Glucose 138 H Oxyhemoglobin Carboxyhemoglobin Sodium Potassium 3.0 L Chloride 92.3 L Carbon Dioxide 37 H BUN 21 H Creatinine 0.6 L Glucose 120 H POC Glucose Lactic Acid Calcium Magnesium Ferritin Total Bilirubin Direct Bilirubin AST ALT Alkaline Phosphatase Lactate Dehydrogenase C-Reactive Protein Total Protein Albumin Triglycerides Lipase Arterial Blood Glucose 138 H Arterial Blood Ionized Calcium 4.5 L Urine WBC (Auto) Coronavirus (PCR) SARS-CoV-2 IgG Ab Crossmatch 06/09/20 06/09/20 06/10/20 11:22 18:32 04:46 WBC RBC Hgb Hct MCV MCH MCHC RDW Lymph % (Auto) [place]ricks % (Auto) Lymph # (Auto) [place]ricks # (Auto) Baso # (Auto) Seg Neutrophils % Seg Neuts % (Manual) Lymphocytes % (Manual) Nucleated RBC % Seg Neutrophils # Seg Neutrophils # Man Lymphocytes # (Manual) Monocytes # (Manual) Eosinophils # (Manual) PT INR APTT D-Dimer Heparin Anti-Xa Level ABG pH 7.501 H POC ABG pCO2 POC ABG pO2 126.5 H ABG pO2 ABG HCO3 ABG O2 Saturation ABG Base Excess ABG Hemoglobin 10.3 L ABG Oxyhemoglobin ABG Sodium ABG Potassium ABG Chloride ABG Glucose 220 H Oxyhemoglobin Carboxyhemoglobin Sodium Potassium Chloride Carbon Dioxide BUN Creatinine Glucose POC Glucose 117 H 121 H Lactic Acid Calcium Magnesium Ferritin Total Bilirubin Direct Bilirubin AST ALT Alkaline Phosphatase Lactate Dehydrogenase C-Reactive Protein Total Protein Albumin Triglycerides Lipase Arterial Blood Glucose 220 H Arterial Blood Ionized Calcium Urine WBC (Auto) Coronavirus (PCR) SARS-CoV-2 IgG Ab Crossmatch 06/10/20 06/10/20 06/10/20 05:30 09:38 12:03 WBC RBC Hgb Hct MCV MCH MCHC RDW Lymph % (Auto) [place]ricks % (Auto) Lymph # (Auto) [place]ricks # (Auto) Baso # (Auto) Seg Neutrophils % Seg Neuts % (Manual) Lymphocytes % (Manual) Nucleated RBC % Seg Neutrophils # Seg Neutrophils # Man Lymphocytes # (Manual) Monocytes # (Manual) Eosinophils # (Manual) PT INR APTT D-Dimer Heparin Anti-Xa Level ABG pH POC ABG pCO2 POC ABG pO2 ABG pO2 ABG HCO3 ABG O2 Saturation ABG Base Excess ABG Hemoglobin ABG Oxyhemoglobin ABG Sodium ABG Potassium ABG Chloride ABG Glucose Oxyhemoglobin Carboxyhemoglobin Sodium Potassium Chloride Carbon Dioxide BUN Creatinine Glucose POC Glucose 181 H 204 H Lactic Acid Calcium Magnesium Ferritin Total Bilirubin Direct Bilirubin AST ALT Alkaline Phosphatase Lactate Dehydrogenase C-Reactive Protein Total Protein Albumin Triglycerides 738 H Lipase Arterial Blood Glucose Arterial Blood Ionized Calcium Urine WBC (Auto) Coronavirus (PCR) SARS-CoV-2 IgG Ab Crossmatch 06/10/20 06/11/20 06/11/20 17:17 00:04 04:38 WBC RBC Hgb Hct MCV MCH MCHC RDW Lymph % (Auto) [place]ricks % (Auto) Lymph # (Auto) [place]ricks # (Auto) Baso # (Auto) Seg Neutrophils % Seg Neuts % (Manual) Lymphocytes % (Manual) Nucleated RBC % Seg Neutrophils # Seg Neutrophils # Man Lymphocytes # (Manual) Monocytes # (Manual) Eosinophils # (Manual) PT INR APTT D-Dimer Heparin Anti-Xa Level ABG pH 7.479 H POC ABG pCO2 POC ABG pO2 76.7 L ABG pO2 ABG HCO3 ABG O2 Saturation ABG Base Excess ABG Hemoglobin 9.8 L ABG Oxyhemoglobin ABG Sodium 135.8 L ABG Potassium ABG Chloride ABG Glucose 238 H Oxyhemoglobin Carboxyhemoglobin Sodium Potassium Chloride Carbon Dioxide BUN Creatinine Glucose POC Glucose 156 H 178 H Lactic Acid Calcium Magnesium Ferritin Total Bilirubin Direct Bilirubin AST ALT Alkaline Phosphatase Lactate Dehydrogenase C-Reactive Protein Total Protein Albumin Triglycerides Lipase Arterial Blood Glucose 238 H Arterial Blood Ionized Calcium Urine WBC (Auto) Coronavirus (PCR) SARS-CoV-2 IgG Ab Crossmatch 06/11/20 06/11/20 06/11/20 05:21 06:52 11:50 WBC RBC Hgb Hct MCV MCH MCHC RDW Lymph % (Auto) [place]ricks % (Auto) Lymph # (Auto) [place]ricks # (Auto) Baso # (Auto) Seg Neutrophils % Seg Neuts % (Manual) Lymphocytes % (Manual) Nucleated RBC % Seg Neutrophils # Seg Neutrophils # Man Lymphocytes # (Manual) Monocytes # (Manual) Eosinophils # (Manual) PT INR APTT D-Dimer Heparin Anti-Xa Level ABG pH POC ABG pCO2 POC ABG pO2 ABG pO2 ABG HCO3 ABG O2 Saturation ABG Base Excess ABG Hemoglobin ABG Oxyhemoglobin ABG Sodium ABG Potassium ABG Chloride ABG Glucose Oxyhemoglobin Carboxyhemoglobin Sodium Potassium Chloride Carbon Dioxide BUN Creatinine Glucose POC Glucose 215 H 187 H Lactic Acid Calcium Magnesium Ferritin Total Bilirubin Direct Bilirubin AST ALT Alkaline Phosphatase Lactate Dehydrogenase C-Reactive Protein Total Protein Albumin Triglycerides 331 H Lipase Arterial Blood Glucose Arterial Blood Ionized Calcium Urine WBC (Auto) Coronavirus (PCR) SARS-CoV-2 IgG Ab Crossmatch 06/11/20 06/11/20 06/12/20 17:49 23:35 04:52 WBC RBC Hgb Hct MCV MCH MCHC RDW Lymph % (Auto) [place]ricks % (Auto) Lymph # (Auto) [place] # (Auto) Baso # (Auto) Seg Neutrophils % Seg Neuts % (Manual) Lymphocytes % (Manual) Nucleated RBC % Seg Neutrophils # Seg Neutrophils # Man Lymphocytes # (Manual) Monocytes # (Manual) Eosinophils # (Manual) PT INR APTT D-Dimer Heparin Anti-Xa Level ABG pH 7.486 H POC ABG pCO2 POC ABG pO2 ABG pO2 ABG HCO3 ABG O2 Saturation ABG Base Excess ABG Hemoglobin 9.4 L ABG Oxyhemoglobin ABG Sodium ABG Potassium 3.2 L ABG Chloride ABG Glucose 209 H Oxyhemoglobin Carboxyhemoglobin Sodium Potassium Chloride Carbon Dioxide BUN Creatinine Glucose POC Glucose 211 H 200 H Lactic Acid Calcium Magnesium Ferritin Total Bilirubin Direct Bilirubin AST ALT Alkaline Phosphatase Lactate Dehydrogenase C-Reactive Protein Total Protein Albumin Triglycerides Lipase Arterial Blood Glucose 209 H Arterial Blood Ionized Calcium Urine WBC (Auto) Coronavirus (PCR) SARS-CoV-2 IgG Ab Crossmatch 06/12/20 06/12/20 06/12/20 05:13 11:47 18:33 WBC RBC Hgb Hct MCV MCH MCHC RDW Lymph % (Auto) [place]ricks % (Auto) Lymph # (Auto) [place]ricks # (Auto) Baso # (Auto) Seg Neutrophils % Seg Neuts % (Manual) Lymphocytes % (Manual) Nucleated RBC % Seg Neutrophils # Seg Neutrophils # Man Lymphocytes # (Manual) Monocytes # (Manual) Eosinophils # (Manual) PT INR APTT D-Dimer Heparin Anti-Xa Level ABG pH POC ABG pCO2 POC ABG pO2 ABG pO2 ABG HCO3 ABG O2 Saturation ABG Base Excess ABG Hemoglobin ABG Oxyhemoglobin ABG Sodium ABG Potassium ABG Chloride ABG Glucose Oxyhemoglobin Carboxyhemoglobin Sodium Potassium Chloride Carbon Dioxide BUN Creatinine Glucose POC Glucose 174 H 214 H 194 H Lactic Acid Calcium Magnesium Ferritin Total Bilirubin Direct Bilirubin AST ALT Alkaline Phosphatase Lactate Dehydrogenase C-Reactive Protein Total Protein Albumin Triglycerides Lipase Arterial Blood Glucose Arterial Blood Ionized Calcium Urine WBC (Auto) Coronavirus (PCR) SARS-CoV-2 IgG Ab Crossmatch 06/12/20 06/13/20 06/13/20 23:49 05:41 12:30 WBC RBC Hgb Hct MCV MCH MCHC RDW Lymph % (Auto) [place]ricks % (Auto) Lymph # (Auto) [place]ricks # (Auto) Baso # (Auto) Seg Neutrophils % Seg Neuts % (Manual) Lymphocytes % (Manual) Nucleated RBC % Seg Neutrophils # Seg Neutrophils # Man Lymphocytes # (Manual) Monocytes # (Manual) Eosinophils # (Manual) PT INR APTT D-Dimer Heparin Anti-Xa Level ABG pH POC ABG pCO2 POC ABG pO2 ABG pO2 ABG HCO3 ABG O2 Saturation ABG Base Excess ABG Hemoglobin ABG Oxyhemoglobin ABG Sodium ABG Potassium ABG Chloride ABG Glucose Oxyhemoglobin Carboxyhemoglobin Sodium Potassium Chloride Carbon Dioxide BUN Creatinine Glucose POC Glucose 160 H 150 H 181 H Lactic Acid Calcium Magnesium Ferritin Total Bilirubin Direct Bilirubin AST ALT Alkaline Phosphatase Lactate Dehydrogenase C-Reactive Protein Total Protein Albumin Triglycerides Lipase Arterial Blood Glucose Arterial Blood Ionized Calcium Urine WBC (Auto) Coronavirus (PCR) SARS-CoV-2 IgG Ab Crossmatch 06/13/20 06/13/20 06/13/20 14:14 17:48 23:27 WBC 12.8 H RBC 2.33 L Hgb 8.0 L Hct 23.3 L MCV 100 H MCH 34 H MCHC RDW 15.7 H Lymph % (Auto) [place]ricks % (Auto) Lymph # (Auto) [place]ricks # (Auto) Baso # (Auto) Seg Neutrophils % Seg Neuts % (Manual) 85.0 H Lymphocytes % (Manual) 10.0 L Nucleated RBC % Seg Neutrophils # Seg Neutrophils # Man 10.9 H Lymphocytes # (Manual) Monocytes # (Manual) Eosinophils # (Manual) PT INR APTT D-Dimer Heparin Anti-Xa Level ABG pH POC ABG pCO2 POC ABG pO2 ABG pO2 ABG HCO3 ABG O2 Saturation ABG Base Excess ABG Hemoglobin ABG Oxyhemoglobin ABG Sodium ABG Potassium ABG Chloride ABG Glucose Oxyhemoglobin Carboxyhemoglobin Sodium Potassium Chloride Carbon Dioxide BUN Creatinine Glucose POC Glucose 173 H 154 H Lactic Acid Calcium Magnesium Ferritin Total Bilirubin Direct Bilirubin AST ALT Alkaline Phosphatase Lactate Dehydrogenase C-Reactive Protein Total Protein Albumin Triglycerides Lipase Arterial Blood Glucose Arterial Blood Ionized Calcium Urine WBC (Auto) Coronavirus (PCR) SARS-CoV-2 IgG Ab Crossmatch 06/14/20 06/14/20 06/14/20 03:58 05:21 07:15 WBC 26.2 H RBC 2.97 L Hgb 9.7 L Hct 29.9 L D MCV 101 H MCH 33 H MCHC RDW 15.3 H Lymph % (Auto) [place]ricks % (Auto) Lymph # (Auto) [place]ricks # (Auto) Baso # (Auto) Seg Neutrophils % Seg Neuts % (Manual) 79.0 H Lymphocytes % (Manual) 5.0 L Nucleated RBC % 3.0 H Seg Neutrophils # Seg Neutrophils # Man 20.7 H Lymphocytes # (Manual) Monocytes # (Manual) 1.3 H Eosinophils # (Manual) PT INR APTT D-Dimer Heparin Anti-Xa Level ABG pH POC ABG pCO2 51.5 H POC ABG pO2 70.0 L ABG pO2 ABG HCO3 ABG O2 Saturation ABG Base Excess ABG Hemoglobin 10.1 L ABG Oxyhemoglobin ABG Sodium 131.5 L ABG Potassium 3.1 L ABG Chloride 93.0 L ABG Glucose 188 H Oxyhemoglobin Carboxyhemoglobin Sodium Potassium Chloride Carbon Dioxide BUN Creatinine Glucose POC Glucose 147 H Lactic Acid Calcium Magnesium Ferritin Total Bilirubin Direct Bilirubin AST ALT Alkaline Phosphatase Lactate Dehydrogenase C-Reactive Protein Total Protein Albumin Triglycerides Lipase Arterial Blood Glucose 188 H Arterial Blood Ionized Calcium Urine WBC (Auto) Coronavirus (PCR) SARS-CoV-2 IgG Ab Crossmatch 06/14/20 06/14/20 06/14/20 07:15 11:30 11:50 WBC RBC Hgb Hct MCV MCH MCHC RDW Lymph % (Auto) [place] % (Auto) Lymph # (Auto) [place] # (Auto) Baso # (Auto) Seg Neutrophils % Seg Neuts % (Manual) Lymphocytes % (Manual) Nucleated RBC % Seg Neutrophils # Seg Neutrophils # Man Lymphocytes # (Manual) Monocytes # (Manual) Eosinophils # (Manual) PT INR APTT D-Dimer Heparin Anti-Xa Level ABG pH POC ABG pCO2 POC ABG pO2 ABG pO2 ABG HCO3 ABG O2 Saturation ABG Base Excess ABG Hemoglobin ABG Oxyhemoglobin ABG Sodium ABG Potassium ABG Chloride ABG Glucose Oxyhemoglobin Carboxyhemoglobin Sodium 135 L Potassium 3.5 L Chloride 90.4 L Carbon Dioxide 38 H BUN Creatinine 0.5 L Glucose 190 H POC Glucose 176 H Lactic Acid Calcium Magnesium Ferritin 1496.0 H Total Bilirubin Direct Bilirubin AST ALT 81 H Alkaline Phosphatase Lactate Dehydrogenase C-Reactive Protein Total Protein Albumin 2.9 L Triglycerides Lipase Arterial Blood Glucose Arterial Blood Ionized Calcium Urine WBC (Auto) Coronavirus (PCR) SARS-CoV-2 IgG Ab Crossmatch 06/14/20 06/15/20 06/15/20 23:31 04:00 05:00 WBC RBC Hgb Hct MCV MCH MCHC RDW Lymph % (Auto) [place] % (Auto) Lymph # (Auto) [place] # (Auto) Baso # (Auto) Seg Neutrophils % Seg Neuts % (Manual) Lymphocytes % (Manual) Nucleated RBC % Seg Neutrophils # Seg Neutrophils # Man Lymphocytes # (Manual) Monocytes # (Manual) Eosinophils # (Manual) PT INR APTT D-Dimer Heparin Anti-Xa Level ABG pH POC ABG pCO2 POC ABG pO2 ABG pO2 ABG HCO3 ABG O2 Saturation ABG Base Excess ABG Hemoglobin ABG Oxyhemoglobin ABG Sodium ABG Potassium ABG Chloride ABG Glucose Oxyhemoglobin Carboxyhemoglobin Sodium 133 L Potassium Chloride 91.1 L Carbon Dioxide 34 H BUN Creatinine 0.4 L Glucose 159 H POC Glucose 200 H Lactic Acid Calcium Magnesium Ferritin Total Bilirubin 2.00 H Direct Bilirubin AST 47 H ALT 77 H Alkaline Phosphatase Lactate Dehydrogenase C-Reactive Protein Total Protein Albumin 2.6 L Triglycerides 152 H Lipase Arterial Blood Glucose Arterial Blood Ionized Calcium Urine WBC (Auto) Coronavirus (PCR) SARS-CoV-2 IgG Ab Crossmatch 06/15/20 06/15/20 06/15/20 05:35 06:27 11:38 WBC RBC Hgb Hct MCV MCH MCHC RDW Lymph % (Auto) [place] % (Auto) Lymph # (Auto) [place] # (Auto) Baso # (Auto) Seg Neutrophils % Seg Neuts % (Manual) Lymphocytes % (Manual) Nucleated RBC % Seg Neutrophils # Seg Neutrophils # Man Lymphocytes # (Manual) Monocytes # (Manual) Eosinophils # (Manual) PT INR APTT D-Dimer Heparin Anti-Xa Level ABG pH POC ABG pCO2 61.0 H POC ABG pO2 67.9 L ABG pO2 ABG HCO3 ABG O2 Saturation ABG Base Excess ABG Hemoglobin 10.4 L ABG Oxyhemoglobin ABG Sodium 132.7 L ABG Potassium 3.3 L ABG Chloride 92.0 L ABG Glucose 158 H Oxyhemoglobin Carboxyhemoglobin Sodium Potassium Chloride Carbon Dioxide BUN Creatinine Glucose POC Glucose 148 H 197 H Lactic Acid Calcium Magnesium Ferritin Total Bilirubin Direct Bilirubin AST ALT Alkaline Phosphatase Lactate Dehydrogenase C-Reactive Protein Total Protein Albumin Triglycerides Lipase Arterial Blood Glucose 158 H Arterial Blood Ionized Calcium Urine WBC (Auto) Coronavirus (PCR) SARS-CoV-2 IgG Ab Crossmatch 06/15/20 06/15/20 06/16/20 17:29 Unknown 00:01 WBC 20.7 H RBC 2.57 L Hgb 8.9 L Hct 25.8 L MCV 101 H MCH 35 H MCHC 35 H RDW 16.0 H Lymph % (Auto) [place]ricks % (Auto) Lymph # (Auto) [place]ricks # (Auto) Baso # (Auto) Seg Neutrophils % Seg Neuts % (Manual) 83.0 H Lymphocytes % (Manual) 8.0 L Nucleated RBC % Seg Neutrophils # Seg Neutrophils # Man 17.2 H Lymphocytes # (Manual) Monocytes # (Manual) 1.2 H Eosinophils # (Manual) PT INR APTT D-Dimer Heparin Anti-Xa Level ABG pH POC ABG pCO2 POC ABG pO2 ABG pO2 ABG HCO3 ABG O2 Saturation ABG Base Excess ABG Hemoglobin ABG Oxyhemoglobin ABG Sodium ABG Potassium ABG Chloride ABG Glucose Oxyhemoglobin Carboxyhemoglobin Sodium Potassium Chloride Carbon Dioxide BUN Creatinine Glucose POC Glucose 231 H 257 H Lactic Acid Calcium Magnesium Ferritin Total Bilirubin Direct Bilirubin AST ALT Alkaline Phosphatase Lactate Dehydrogenase C-Reactive Protein Total Protein Albumin Triglycerides Lipase Arterial Blood Glucose Arterial Blood Ionized Calcium Urine WBC (Auto) Coronavirus (PCR) SARS-CoV-2 IgG Ab Crossmatch 06/16/20 06/16/20 06/16/20 04:00 04:00 05:22 WBC 13.8 H RBC 2.03 L Hgb 7.6 L Hct 20.7 L MCV 102 H MCH 37 H MCHC 37 H RDW 16.2 H Lymph % (Auto) 4.4 L Hendricks % (Auto) Lymph # (Auto) 0.6 L [place]ricks # (Auto) Baso # (Auto) Seg Neutrophils % Seg Neuts % (Manual) Lymphocytes % (Manual) Nucleated RBC % Seg Neutrophils # 12.7 H Seg Neutrophils # Man Lymphocytes # (Manual) Monocytes # (Manual) Eosinophils # (Manual) PT INR APTT D-Dimer Heparin Anti-Xa Level ABG pH POC ABG pCO2 POC ABG pO2 ABG pO2 ABG HCO3 ABG O2 Saturation ABG Base Excess ABG Hemoglobin ABG Oxyhemoglobin ABG Sodium ABG Potassium ABG Chloride ABG Glucose Oxyhemoglobin Carboxyhemoglobin Sodium 130 L Potassium Chloride 88.9 L Carbon Dioxide 36 H BUN Creatinine 0.3 L Glucose 276 H POC Glucose 250 H Lactic Acid Calcium Magnesium Ferritin Total Bilirubin Direct Bilirubin AST ALT Alkaline Phosphatase Lactate Dehydrogenase C-Reactive Protein Total Protein Albumin Triglycerides Lipase Arterial Blood Glucose Arterial Blood Ionized Calcium Urine WBC (Auto) Coronavirus (PCR) SARS-CoV-2 IgG Ab Crossmatch 06/16/20 06/16/20 06/17/20 12:44 18:18 00:39 WBC RBC Hgb Hct MCV MCH MCHC RDW Lymph % (Auto) [place] % (Auto) Lymph # (Auto) [place]ricks # (Auto) Baso # (Auto) Seg Neutrophils % Seg Neuts % (Manual) Lymphocytes % (Manual) Nucleated RBC % Seg Neutrophils # Seg Neutrophils # Man Lymphocytes # (Manual) Monocytes # (Manual) Eosinophils # (Manual) PT INR APTT D-Dimer Heparin Anti-Xa Level ABG pH POC ABG pCO2 POC ABG pO2 ABG pO2 ABG HCO3 ABG O2 Saturation ABG Base Excess ABG Hemoglobin ABG Oxyhemoglobin ABG Sodium ABG Potassium ABG Chloride ABG Glucose Oxyhemoglobin Carboxyhemoglobin Sodium Potassium Chloride Carbon Dioxide BUN Creatinine Glucose POC Glucose 279 H 239 H 247 H Lactic Acid Calcium Magnesium Ferritin Total Bilirubin Direct Bilirubin AST ALT Alkaline Phosphatase Lactate Dehydrogenase C-Reactive Protein Total Protein Albumin Triglycerides Lipase Arterial Blood Glucose Arterial Blood Ionized Calcium Urine WBC (Auto) Coronavirus (PCR) SARS-CoV-2 IgG Ab Crossmatch 06/17/20 06/17/20 06/17/20 03:40 04:08 10:54 WBC RBC Hgb Hct MCV MCH MCHC RDW Lymph % (Auto) [place] % (Auto) Lymph # (Auto) [place] # (Auto) Baso # (Auto) Seg Neutrophils % Seg Neuts % (Manual) Lymphocytes % (Manual) Nucleated RBC % Seg Neutrophils # Seg Neutrophils # Man Lymphocytes # (Manual) Monocytes # (Manual) Eosinophils # (Manual) PT INR APTT D-Dimer Heparin Anti-Xa Level ABG pH POC ABG pCO2 65.7 H POC ABG pO2 ABG pO2 ABG HCO3 ABG O2 Saturation ABG Base Excess ABG Hemoglobin 11.9 L ABG Oxyhemoglobin ABG Sodium ABG Potassium ABG Chloride 93.0 L ABG Glucose 244 H Oxyhemoglobin Carboxyhemoglobin Sodium Potassium Chloride Carbon Dioxide BUN Creatinine Glucose POC Glucose 221 H 248 H Lactic Acid Calcium Magnesium Ferritin Total Bilirubin Direct Bilirubin AST ALT Alkaline Phosphatase Lactate Dehydrogenase C-Reactive Protein Total Protein Albumin Triglycerides Lipase Arterial Blood Glucose 244 H Arterial Blood Ionized Calcium Urine WBC (Auto) Coronavirus (PCR) SARS-CoV-2 IgG Ab Crossmatch 06/17/20 06/17/20 06/17/20 17:47 23:11 23:29 WBC RBC Hgb Hct MCV MCH MCHC RDW Lymph % (Auto) [place] % (Auto) Lymph # (Auto) [place] # (Auto) Baso # (Auto) Seg Neutrophils % Seg Neuts % (Manual) Lymphocytes % (Manual) Nucleated RBC % Seg Neutrophils # Seg Neutrophils # Man Lymphocytes # (Manual) Monocytes # (Manual) Eosinophils # (Manual) PT INR APTT D-Dimer Heparin Anti-Xa Level ABG pH POC ABG pCO2 85.2 H POC ABG pO2 48.4 L ABG pO2 ABG HCO3 ABG O2 Saturation ABG Base Excess ABG Hemoglobin 8.0 L ABG Oxyhemoglobin ABG Sodium ABG Potassium ABG Chloride 95.0 L ABG Glucose 292 H Oxyhemoglobin Carboxyhemoglobin Sodium Potassium Chloride Carbon Dioxide BUN Creatinine Glucose POC Glucose 245 H 252 H Lactic Acid Calcium Magnesium Ferritin Total Bilirubin Direct Bilirubin AST ALT Alkaline Phosphatase Lactate Dehydrogenase C-Reactive Protein Total Protein Albumin Triglycerides Lipase Arterial Blood Glucose 292 H Arterial Blood Ionized Calcium Urine WBC (Auto) Coronavirus (PCR) SARS-CoV-2 IgG Ab Crossmatch 06/18/20 06/18/20 06/18/20 03:14 05:34 11:47 WBC RBC Hgb Hct MCV MCH MCHC RDW Lymph % (Auto) [place] % (Auto) Lymph # (Auto) [place] # (Auto) Baso # (Auto) Seg Neutrophils % Seg Neuts % (Manual) Lymphocytes % (Manual) Nucleated RBC % Seg Neutrophils # Seg Neutrophils # Man Lymphocytes # (Manual) Monocytes # (Manual) Eosinophils # (Manual) PT INR APTT D-Dimer Heparin Anti-Xa Level ABG pH POC ABG pCO2 65.4 H POC ABG pO2 160.7 H ABG pO2 ABG HCO3 ABG O2 Saturation ABG Base Excess ABG Hemoglobin 7.8 L ABG Oxyhemoglobin ABG Sodium ABG Potassium ABG Chloride 95.0 L ABG Glucose 251 H Oxyhemoglobin Carboxyhemoglobin Sodium Potassium Chloride Carbon Dioxide BUN Creatinine Glucose POC Glucose 243 H 263 H Lactic Acid Calcium Magnesium Ferritin Total Bilirubin Direct Bilirubin AST ALT Alkaline Phosphatase Lactate Dehydrogenase C-Reactive Protein Total Protein Albumin Triglycerides Lipase Arterial Blood Glucose 251 H Arterial Blood Ionized Calcium Urine WBC (Auto) Coronavirus (PCR) SARS-CoV-2 IgG Ab Crossmatch 06/18/20 06/18/20 06/19/20 17:31 23:33 04:32 WBC RBC Hgb Hct MCV MCH MCHC RDW Lymph % (Auto) [place] % (Auto) Lymph # (Auto) [place] # (Auto) Baso # (Auto) Seg Neutrophils % Seg Neuts % (Manual) Lymphocytes % (Manual) Nucleated RBC % Seg Neutrophils # Seg Neutrophils # Man Lymphocytes # (Manual) Monocytes # (Manual) Eosinophils # (Manual) PT INR APTT D-Dimer Heparin Anti-Xa Level ABG pH POC ABG pCO2 83.1 H POC ABG pO2 65.8 L ABG pO2 ABG HCO3 ABG O2 Saturation ABG Base Excess ABG Hemoglobin 8.9 L ABG Oxyhemoglobin ABG Sodium ABG Potassium ABG Chloride 96.0 L ABG Glucose 297 H Oxyhemoglobin Carboxyhemoglobin Sodium Potassium Chloride Carbon Dioxide BUN Creatinine Glucose POC Glucose 286 H 238 H Lactic Acid Calcium Magnesium Ferritin Total Bilirubin Direct Bilirubin AST ALT Alkaline Phosphatase Lactate Dehydrogenase C-Reactive Protein Total Protein Albumin Triglycerides Lipase Arterial Blood Glucose 297 H Arterial Blood Ionized Calcium Urine WBC (Auto) Coronavirus (PCR) SARS-CoV-2 IgG Ab Crossmatch 06/19/20 06/19/20 06/19/20 05:55 11:20 17:12 WBC RBC Hgb Hct MCV MCH MCHC RDW Lymph % (Auto) [place] % (Auto) Lymph # (Auto) [place] # (Auto) Baso # (Auto) Seg Neutrophils % Seg Neuts % (Manual) Lymphocytes % (Manual) Nucleated RBC % Seg Neutrophils # Seg Neutrophils # Man Lymphocytes # (Manual) Monocytes # (Manual) Eosinophils # (Manual) PT INR APTT D-Dimer Heparin Anti-Xa Level ABG pH POC ABG pCO2 POC ABG pO2 ABG pO2 ABG HCO3 ABG O2 Saturation ABG Base Excess ABG Hemoglobin ABG Oxyhemoglobin ABG Sodium ABG Potassium ABG Chloride ABG Glucose Oxyhemoglobin Carboxyhemoglobin Sodium Potassium Chloride Carbon Dioxide BUN Creatinine Glucose POC Glucose 274 H 282 H 298 H Lactic Acid Calcium Magnesium Ferritin Total Bilirubin Direct Bilirubin AST ALT Alkaline Phosphatase Lactate Dehydrogenase C-Reactive Protein Total Protein Albumin Triglycerides Lipase Arterial Blood Glucose Arterial Blood Ionized Calcium Urine WBC (Auto) Coronavirus (PCR) SARS-CoV-2 IgG Ab Crossmatch 06/19/20 06/20/20 06/20/20 23:08 03:33 06:01 WBC RBC Hgb Hct MCV MCH MCHC RDW Lymph % (Auto) [place] % (Auto) Lymph # (Auto) [place] # (Auto) Baso # (Auto) Seg Neutrophils % Seg Neuts % (Manual) Lymphocytes % (Manual) Nucleated RBC % Seg Neutrophils # Seg Neutrophils # Man Lymphocytes # (Manual) Monocytes # (Manual) Eosinophils # (Manual) PT INR APTT D-Dimer Heparin Anti-Xa Level ABG pH POC ABG pCO2 POC ABG pO2 ABG pO2 69.9 L ABG HCO3 50.8 H ABG O2 Saturation ABG Base Excess 24.2 H ABG Hemoglobin 5.8 L ABG Oxyhemoglobin ABG Sodium ABG Potassium ABG Chloride ABG Glucose Oxyhemoglobin Carboxyhemoglobin Sodium Potassium Chloride Carbon Dioxide BUN Creatinine Glucose POC Glucose 293 H 182 H Lactic Acid Calcium Magnesium Ferritin Total Bilirubin Direct Bilirubin AST ALT Alkaline Phosphatase Lactate Dehydrogenase C-Reactive Protein Total Protein Albumin Triglycerides Lipase Arterial Blood Glucose Arterial Blood Ionized Calcium Urine WBC (Auto) Coronavirus (PCR) SARS-CoV-2 IgG Ab Crossmatch 06/20/20 06/20/20 06/20/20 11:47 17:46 23:37 WBC RBC Hgb Hct MCV MCH MCHC RDW Lymph % (Auto) [place] % (Auto) Lymph # (Auto) [place] # (Auto) Baso # (Auto) Seg Neutrophils % Seg Neuts % (Manual) Lymphocytes % (Manual) Nucleated RBC % Seg Neutrophils # Seg Neutrophils # Man Lymphocytes # (Manual) Monocytes # (Manual) Eosinophils # (Manual) PT INR APTT D-Dimer Heparin Anti-Xa Level ABG pH POC ABG pCO2 POC ABG pO2 ABG pO2 ABG HCO3 ABG O2 Saturation ABG Base Excess ABG Hemoglobin ABG Oxyhemoglobin ABG Sodium ABG Potassium ABG Chloride ABG Glucose Oxyhemoglobin Carboxyhemoglobin Sodium Potassium Chloride Carbon Dioxide BUN Creatinine Glucose POC Glucose 170 H 215 H 256 H Lactic Acid Calcium Magnesium Ferritin Total Bilirubin Direct Bilirubin AST ALT Alkaline Phosphatase Lactate Dehydrogenase C-Reactive Protein Total Protein Albumin Triglycerides Lipase Arterial Blood Glucose Arterial Blood Ionized Calcium Urine WBC (Auto) Coronavirus (PCR) SARS-CoV-2 IgG Ab Crossmatch 06/21/20 06/21/20 06/21/20 04:00 05:14 05:51 WBC RBC Hgb Hct MCV MCH MCHC RDW Lymph % (Auto) [place] % (Auto) Lymph # (Auto) [place] # (Auto) Baso # (Auto) Seg Neutrophils % Seg Neuts % (Manual) Lymphocytes % (Manual) Nucleated RBC % Seg Neutrophils # Seg Neutrophils # Man Lymphocytes # (Manual) Monocytes # (Manual) Eosinophils # (Manual) PT INR APTT D-Dimer Heparin Anti-Xa Level ABG pH 7.474 H POC ABG pCO2 POC ABG pO2 ABG pO2 ABG HCO3 52.1 H ABG O2 Saturation ABG Base Excess 23.3 H ABG Hemoglobin 5.3 L ABG Oxyhemoglobin ABG Sodium ABG Potassium ABG Chloride ABG Glucose Oxyhemoglobin 93.8 L Carboxyhemoglobin Sodium Potassium Chloride Carbon Dioxide BUN Creatinine Glucose POC Glucose 122 H 129 H Lactic Acid Calcium Magnesium Ferritin Total Bilirubin Direct Bilirubin AST ALT Alkaline Phosphatase Lactate Dehydrogenase C-Reactive Protein Total Protein Albumin Triglycerides Lipase Arterial Blood Glucose Arterial Blood Ionized Calcium Urine WBC (Auto) Coronavirus (PCR) SARS-CoV-2 IgG Ab Crossmatch 06/21/20 06/21/20 06/21/20 11:00 11:00 11:42 WBC 14.2 H RBC 1.85 L Hgb 6.2 L Hct 19.5 L* MCV 105 H MCH 34 H MCHC RDW 18.0 H Lymph % (Auto) [place] % (Auto) Lymph # (Auto) [place] # (Auto) Baso # (Auto) Seg Neutrophils % Seg Neuts % (Manual) Lymphocytes % (Manual) Nucleated RBC % Seg Neutrophils # Seg Neutrophils # Man Lymphocytes # (Manual) Monocytes # (Manual) Eosinophils # (Manual) PT INR APTT D-Dimer Heparin Anti-Xa Level ABG pH POC ABG pCO2 POC ABG pO2 ABG pO2 ABG HCO3 ABG O2 Saturation ABG Base Excess ABG Hemoglobin ABG Oxyhemoglobin ABG Sodium ABG Potassium ABG Chloride ABG Glucose Oxyhemoglobin Carboxyhemoglobin Sodium 147 H Potassium Chloride Carbon Dioxide 51 H* BUN 31 H Creatinine 0.5 L Glucose 224 H POC Glucose 217 H Lactic Acid Calcium Magnesium Ferritin Total Bilirubin Direct Bilirubin AST ALT Alkaline Phosphatase Lactate Dehydrogenase C-Reactive Protein Total Protein Albumin Triglycerides Lipase Arterial Blood Glucose Arterial Blood Ionized Calcium Urine WBC (Auto) Coronavirus (PCR) SARS-CoV-2 IgG Ab Crossmatch 06/21/20 06/21/20 06/21/20 14:18 14:30 18:36 WBC RBC Hgb Hct MCV MCH MCHC RDW Lymph % (Auto) [place] % (Auto) Lymph # (Auto) [place] # (Auto) Baso # (Auto) Seg Neutrophils % Seg Neuts % (Manual) Lymphocytes % (Manual) Nucleated RBC % Seg Neutrophils # Seg Neutrophils # Man Lymphocytes # (Manual) Monocytes # (Manual) Eosinophils # (Manual) PT 15.1 H INR 1.19 H APTT D-Dimer Heparin Anti-Xa Level ABG pH POC ABG pCO2 POC ABG pO2 ABG pO2 ABG HCO3 ABG O2 Saturation ABG Base Excess ABG Hemoglobin ABG Oxyhemoglobin ABG Sodium ABG Potassium ABG Chloride ABG Glucose Oxyhemoglobin Carboxyhemoglobin Sodium Potassium Chloride Carbon Dioxide BUN Creatinine Glucose POC Glucose 185 H Lactic Acid Calcium Magnesium Ferritin Total Bilirubin Direct Bilirubin AST ALT Alkaline Phosphatase Lactate Dehydrogenase C-Reactive Protein Total Protein Albumin Triglycerides Lipase Arterial Blood Glucose Arterial Blood Ionized Calcium Urine WBC (Auto) Coronavirus (PCR) SARS-CoV-2 IgG Ab Crossmatch See Detail 06/21/20 06/22/20 06/22/20 21:14 03:50 04:00 WBC RBC Hgb Hct MCV MCH MCHC RDW Lymph % (Auto) [place] % (Auto) Lymph # (Auto) [place] # (Auto) Baso # (Auto) Seg Neutrophils % Seg Neuts % (Manual) Lymphocytes % (Manual) Nucleated RBC % Seg Neutrophils # Seg Neutrophils # Man Lymphocytes # (Manual) Monocytes # (Manual) Eosinophils # (Manual) PT INR APTT D-Dimer Heparin Anti-Xa Level ABG pH 7.451 H POC ABG pCO2 POC ABG pO2 ABG pO2 ABG HCO3 47.5 H ABG O2 Saturation ABG Base Excess 22.0 H ABG Hemoglobin < 5.1 L ABG Oxyhemoglobin ABG Sodium ABG Potassium ABG Chloride ABG Glucose Oxyhemoglobin 94.1 L Carboxyhemoglobin Sodium 149 H Potassium 3.5 L Chloride Carbon Dioxide 42 H* D BUN 34 H Creatinine 0.4 L Glucose 219 H POC Glucose 250 H Lactic Acid Calcium Magnesium Ferritin Total Bilirubin Direct Bilirubin AST ALT Alkaline Phosphatase Lactate Dehydrogenase C-Reactive Protein Total Protein Albumin Triglycerides Lipase Arterial Blood Glucose Arterial Blood Ionized Calcium Urine WBC (Auto) Coronavirus (PCR) SARS-CoV-2 IgG Ab Crossmatch 06/22/20 06/22/20 06/22/20 12:16 14:29 17:56 WBC RBC Hgb Hct MCV MCH MCHC RDW Lymph % (Auto) [place] % (Auto) Lymph # (Auto) [place] # (Auto) Baso # (Auto) Seg Neutrophils % Seg Neuts % (Manual) Lymphocytes % (Manual) Nucleated RBC % Seg Neutrophils # Seg Neutrophils # Man Lymphocytes # (Manual) Monocytes # (Manual) Eosinophils # (Manual) PT 11.8 L INR APTT 23.5 L D-Dimer Heparin Anti-Xa Level ABG pH POC ABG pCO2 POC ABG pO2 ABG pO2 ABG HCO3 ABG O2 Saturation ABG Base Excess ABG Hemoglobin ABG Oxyhemoglobin ABG Sodium ABG Potassium ABG Chloride ABG Glucose Oxyhemoglobin Carboxyhemoglobin Sodium Potassium Chloride Carbon Dioxide BUN Creatinine Glucose POC Glucose 215 H 215 H Lactic Acid Calcium Magnesium Ferritin Total Bilirubin Direct Bilirubin AST ALT Alkaline Phosphatase Lactate Dehydrogenase C-Reactive Protein Total Protein Albumin Triglycerides Lipase Arterial Blood Glucose Arterial Blood Ionized Calcium Urine WBC (Auto) Coronavirus (PCR) SARS-CoV-2 IgG Ab Crossmatch 06/22/20 06/22/20 06/22/20 23:36 23:45 Unknown WBC 14.1 H RBC 2.70 L Hgb 8.9 L 8.9 L Hct 26.9 L 27.2 L D MCV 101 H MCH 33 H MCHC RDW 17.7 H Lymph % (Auto) [place] % (Auto) Lymph # (Auto) [place] # (Auto) Baso # (Auto) Seg Neutrophils % Seg Neuts % (Manual) 92.0 H Lymphocytes % (Manual) 5.0 L Nucleated RBC % Seg Neutrophils # Seg Neutrophils # Man 13.0 H Lymphocytes # (Manual) 0.7 L Monocytes # (Manual) Eosinophils # (Manual) PT INR APTT D-Dimer Heparin Anti-Xa Level ABG pH POC ABG pCO2 POC ABG pO2 ABG pO2 ABG HCO3 ABG O2 Saturation ABG Base Excess ABG Hemoglobin ABG Oxyhemoglobin ABG Sodium ABG Potassium ABG Chloride ABG Glucose Oxyhemoglobin Carboxyhemoglobin Sodium Potassium Chloride Carbon Dioxide BUN Creatinine Glucose POC Glucose 208 H Lactic Acid Calcium Magnesium Ferritin Total Bilirubin Direct Bilirubin AST ALT Alkaline Phosphatase Lactate Dehydrogenase C-Reactive Protein Total Protein Albumin Triglycerides Lipase Arterial Blood Glucose Arterial Blood Ionized Calcium Urine WBC (Auto) Coronavirus (PCR) SARS-CoV-2 IgG Ab Crossmatch 06/23/20 06/23/20 06/23/20 05:17 05:19 06:50 WBC RBC Hgb Hct MCV MCH MCHC RDW Lymph % (Auto) [place] % (Auto) Lymph # (Auto) [place] # (Auto) Baso # (Auto) Seg Neutrophils % Seg Neuts % (Manual) Lymphocytes % (Manual) Nucleated RBC % Seg Neutrophils # Seg Neutrophils # Man Lymphocytes # (Manual) Monocytes # (Manual) Eosinophils # (Manual) PT INR APTT D-Dimer Heparin Anti-Xa Level ABG pH POC ABG pCO2 69.7 H POC ABG pO2 63.3 L ABG pO2 ABG HCO3 ABG O2 Saturation ABG Base Excess ABG Hemoglobin 10.1 L ABG Oxyhemoglobin ABG Sodium ABG Potassium 3.3 L ABG Chloride ABG Glucose 226 H Oxyhemoglobin Carboxyhemoglobin Sodium Potassium 3.0 L Chloride Carbon Dioxide 41 H* BUN 26 H Creatinine 0.4 L Glucose 209 H POC Glucose 200 H Lactic Acid Calcium Magnesium Ferritin Total Bilirubin Direct Bilirubin AST ALT Alkaline Phosphatase Lactate Dehydrogenase C-Reactive Protein Total Protein Albumin 2.9 L Triglycerides Lipase Arterial Blood Glucose 226 H Arterial Blood Ionized Calcium Urine WBC (Auto) Coronavirus (PCR) SARS-CoV-2 IgG Ab Crossmatch 06/23/20 06/23/20 06/23/20 09:41 12:04 18:16 WBC RBC Hgb 9.1 L Hct 28.0 L MCV MCH MCHC RDW Lymph % (Auto) [place] % (Auto) Lymph # (Auto) [place] # (Auto) Baso # (Auto) Seg Neutrophils % Seg Neuts % (Manual) Lymphocytes % (Manual) Nucleated RBC % Seg Neutrophils # Seg Neutrophils # Man Lymphocytes # (Manual) Monocytes # (Manual) Eosinophils # (Manual) PT INR APTT D-Dimer Heparin Anti-Xa Level ABG pH POC ABG pCO2 POC ABG pO2 ABG pO2 ABG HCO3 ABG O2 Saturation ABG Base Excess ABG Hemoglobin ABG Oxyhemoglobin ABG Sodium ABG Potassium ABG Chloride ABG Glucose Oxyhemoglobin Carboxyhemoglobin Sodium Potassium Chloride Carbon Dioxide BUN Creatinine Glucose POC Glucose 146 H 162 H Lactic Acid Calcium Magnesium Ferritin Total Bilirubin Direct Bilirubin AST ALT Alkaline Phosphatase Lactate Dehydrogenase C-Reactive Protein Total Protein Albumin Triglycerides Lipase Arterial Blood Glucose Arterial Blood Ionized Calcium Urine WBC (Auto) Coronavirus (PCR) SARS-CoV-2 IgG Ab Crossmatch 06/23/20 06/23/20 06/24/20 23:24 23:41 02:39 WBC RBC Hgb 8.2 L 8.8 L Hct 24.9 L 26.8 L MCV MCH MCHC RDW Lymph % (Auto) [place] % (Auto) Lymph # (Auto) [place] # (Auto) Baso # (Auto) Seg Neutrophils % Seg Neuts % (Manual) Lymphocytes % (Manual) Nucleated RBC % Seg Neutrophils # Seg Neutrophils # Man Lymphocytes # (Manual) Monocytes # (Manual) Eosinophils # (Manual) PT INR APTT D-Dimer Heparin Anti-Xa Level ABG pH POC ABG pCO2 POC ABG pO2 ABG pO2 ABG HCO3 ABG O2 Saturation ABG Base Excess ABG Hemoglobin ABG Oxyhemoglobin ABG Sodium ABG Potassium ABG Chloride ABG Glucose Oxyhemoglobin Carboxyhemoglobin Sodium Potassium Chloride Carbon Dioxide BUN Creatinine Glucose POC Glucose 248 H Lactic Acid Calcium Magnesium Ferritin Total Bilirubin Direct Bilirubin AST ALT Alkaline Phosphatase Lactate Dehydrogenase C-Reactive Protein Total Protein Albumin Triglycerides Lipase Arterial Blood Glucose Arterial Blood Ionized Calcium Urine WBC (Auto) Coronavirus (PCR) SARS-CoV-2 IgG Ab Crossmatch 06/24/20 06/24/20 06/24/20 02:39 02:45 05:31 WBC RBC Hgb Hct MCV MCH MCHC RDW Lymph % (Auto) [place] % (Auto) Lymph # (Auto) [place] # (Auto) Baso # (Auto) Seg Neutrophils % Seg Neuts % (Manual) Lymphocytes % (Manual) Nucleated RBC % Seg Neutrophils # Seg Neutrophils # Man Lymphocytes # (Manual) Monocytes # (Manual) Eosinophils # (Manual) PT INR APTT D-Dimer Heparin Anti-Xa Level ABG pH POC ABG pCO2 66.9 H POC ABG pO2 109.7 H ABG pO2 ABG HCO3 ABG O2 Saturation ABG Base Excess ABG Hemoglobin 9.7 L ABG Oxyhemoglobin ABG Sodium 135.0 L ABG Potassium ABG Chloride 97.0 L ABG Glucose 277 H Oxyhemoglobin Carboxyhemoglobin Sodium 136 L Potassium Chloride 95.0 L Carbon Dioxide 34 H D BUN 24 H Creatinine 0.3 L Glucose 260 H POC Glucose 164 H Lactic Acid Calcium Magnesium Ferritin Total Bilirubin Direct Bilirubin AST ALT Alkaline Phosphatase Lactate Dehydrogenase C-Reactive Protein Total Protein 5.2 L Albumin 2.6 L Triglycerides Lipase Arterial Blood Glucose 277 H Arterial Blood Ionized Calcium Urine WBC (Auto) Coronavirus (PCR) SARS-CoV-2 IgG Ab Crossmatch 06/24/20 06/24/2006/24/20 10:00 11:49 17:39 WBC RBC Hgb 8.9 L Hct 26.5 L MCV MCH MCHC RDW Lymph % (Auto) [place] % (Auto) Lymph # (Auto) [place] # (Auto) Baso # (Auto) Seg Neutrophils % Seg Neuts % (Manual) Lymphocytes % (Manual) Nucleated RBC % Seg Neutrophils # Seg Neutrophils # Man Lymphocytes # (Manual) Monocytes # (Manual) Eosinophils # (Manual) PT INR APTT D-Dimer Heparin Anti-Xa Level ABG pH POC ABG pCO2 POC ABG pO2 ABG pO2 ABG HCO3 ABG O2 Saturation ABG Base Excess ABG Hemoglobin ABG Oxyhemoglobin ABG Sodium ABG Potassium ABG Chloride ABG Glucose Oxyhemoglobin Carboxyhemoglobin Sodium Potassium Chloride Carbon Dioxide BUN Creatinine Glucose POC Glucose 198 H 223 H Lactic Acid Calcium Magnesium Ferritin Total Bilirubin Direct Bilirubin AST ALT Alkaline Phosphatase Lactate Dehydrogenase C-Reactive Protein Total Protein Albumin Triglycerides Lipase Arterial Blood Glucose Arterial Blood Ionized Calcium Urine WBC (Auto) Coronavirus (PCR) SARS-CoV-2 IgG Ab Crossmatch 06/24/20 06/25/20 06/25/20 23:56 02:16 04:08 WBC RBC Hgb Hct MCV MCH MCHC RDW Lymph % (Auto) [place] % (Auto) Lymph # (Auto) [place] # (Auto) Baso # (Auto) Seg Neutrophils % Seg Neuts % (Manual) Lymphocytes % (Manual) Nucleated RBC % Seg Neutrophils # Seg Neutrophils # Man Lymphocytes # (Manual) Monocytes # (Manual) Eosinophils # (Manual) PT INR APTT D-Dimer Heparin Anti-Xa Level ABG pH 7.454 H POC ABG pCO2 56.9 H POC ABG pO2 61.0 L ABG pO2 ABG HCO3 ABG O2 Saturation ABG Base Excess ABG Hemoglobin ABG Oxyhemoglobin ABG Sodium 134.3 L ABG Potassium ABG Chloride 92.0 L ABG Glucose 246 H Oxyhemoglobin Carboxyhemoglobin Sodium 134 L Potassium Chloride 89.7 L Carbon Dioxide 36 H BUN Creatinine 0.3 L Glucose 254 H POC Glucose 225 H Lactic Acid Calcium Magnesium Ferritin Total Bilirubin Direct Bilirubin AST ALT Alkaline Phosphatase Lactate Dehydrogenase C-Reactive Protein Total Protein Albumin 2.9 L Triglycerides Lipase Arterial Blood Glucose 246 H Arterial Blood Ionized Calcium Urine WBC (Auto) Coronavirus (PCR) SARS-CoV-2 IgG Ab Crossmatch 06/25/20 06/25/20 06/25/20 05:44 11:35 17:33 WBC RBC Hgb Hct MCV MCH MCHC RDW Lymph % (Auto) [place] % (Auto) Lymph # (Auto) [place] # (Auto) Baso # (Auto) Seg Neutrophils % Seg Neuts % (Manual) Lymphocytes % (Manual) Nucleated RBC % Seg Neutrophils # Seg Neutrophils # Man Lymphocytes # (Manual) Monocytes # (Manual) Eosinophils # (Manual) PT INR APTT D-Dimer Heparin Anti-Xa Level ABG pH POC ABG pCO2 POC ABG pO2 ABG pO2 ABG HCO3 ABG O2 Saturation ABG Base Excess ABG Hemoglobin ABG Oxyhemoglobin ABG Sodium ABG Potassium ABG Chloride ABG Glucose Oxyhemoglobin Carboxyhemoglobin Sodium Potassium Chloride Carbon Dioxide BUN Creatinine Glucose POC Glucose 170 H 175 H 229 H Lactic Acid Calcium Magnesium Ferritin Total Bilirubin Direct Bilirubin AST ALT Alkaline Phosphatase Lactate Dehydrogenase C-Reactive Protein Total Protein Albumin Triglycerides Lipase Arterial Blood Glucose Arterial Blood Ionized Calcium Urine WBC (Auto) Coronavirus (PCR) SARS-CoV-2 IgG Ab Crossmatch 06/25/20 06/26/20 06/26/20 23:55 02:17 02:17 WBC RBC Hgb 10.0 L Hct 30.4 L MCV MCH MCHC RDW Lymph % (Auto) [place] % (Auto) Lymph # (Auto) [place] # (Auto) Baso # (Auto) Seg Neutrophils % Seg Neuts % (Manual) Lymphocytes % (Manual) Nucleated RBC % Seg Neutrophils # Seg Neutrophils # Man Lymphocytes # (Manual) Monocytes # (Manual) Eosinophils # (Manual) PT INR APTT D-Dimer Heparin Anti-Xa Level ABG pH POC ABG pCO2 POC ABG pO2 ABG pO2 ABG HCO3 ABG O2 Saturation ABG Base Excess ABG Hemoglobin ABG Oxyhemoglobin ABG Sodium ABG Potassium ABG Chloride ABG Glucose Oxyhemoglobin Carboxyhemoglobin Sodium 136 L Potassium Chloride 90.1 L Carbon Dioxide 39 H BUN Creatinine 0.2 L Glucose 232 H POC Glucose 192 H Lactic Acid Calcium Magnesium Ferritin Total Bilirubin Direct Bilirubin AST ALT Alkaline Phosphatase Lactate Dehydrogenase C-Reactive Protein Total Protein 6.1 L Albumin 2.9 L Triglycerides Lipase Arterial Blood Glucose Arterial Blood Ionized Calcium Urine WBC (Auto) Coronavirus (PCR) SARS-CoV-2 IgG Ab Crossmatch 06/26/20 06/26/20 06/26/20 04:15 04:49 05:28 WBC RBC Hgb Hct MCV MCH MCHC RDW Lymph % (Auto) [place] % (Auto) Lymph # (Auto) [place] # (Auto) Baso # (Auto) Seg Neutrophils % Seg Neuts % (Manual) Lymphocytes % (Manual) Nucleated RBC % Seg Neutrophils # Seg Neutrophils # Man Lymphocytes # (Manual) Monocytes # (Manual) Eosinophils # (Manual) PT INR APTT D-Dimer Heparin Anti-Xa Level ABG pH 7.453 H POC ABG pCO2 59.6 H POC ABG pO2 ABG pO2 ABG HCO3 ABG O2 Saturation ABG Base Excess ABG Hemoglobin 10.0 L ABG Oxyhemoglobin ABG Sodium 134.2 L ABG Potassium 3.3 L ABG Chloride 92.0 L ABG Glucose 305 H Oxyhemoglobin Carboxyhemoglobin Sodium Potassium Chloride Carbon Dioxide BUN Creatinine Glucose POC Glucose 234 H Lactic Acid Calcium Magnesium Ferritin Total Bilirubin Direct Bilirubin AST ALT Alkaline Phosphatase Lactate Dehydrogenase C-Reactive Protein Total Protein Albumin Triglycerides 203 H Lipase Arterial Blood Glucose 305 H Arterial Blood Ionized Calcium Urine WBC (Auto) Coronavirus (PCR) SARS-CoV-2 IgG Ab Crossmatch 06/26/20 06/26/20 06/26/20 11:58 17:58 21:32 WBC RBC Hgb Hct MCV MCH MCHC RDW Lymph % (Auto) [place] % (Auto) Lymph # (Auto) [place] # (Auto) Baso # (Auto) Seg Neutrophils % Seg Neuts % (Manual) Lymphocytes % (Manual) Nucleated RBC % Seg Neutrophils # Seg Neutrophils # Man Lymphocytes # (Manual) Monocytes # (Manual) Eosinophils # (Manual) PT INR APTT D-Dimer Heparin Anti-Xa Level ABG pH POC ABG pCO2 POC ABG pO2 ABG pO2 ABG HCO3 ABG O2 Saturation ABG Base Excess ABG Hemoglobin ABG Oxyhemoglobin ABG Sodium ABG Potassium ABG Chloride ABG Glucose Oxyhemoglobin Carboxyhemoglobin Sodium Potassium Chloride Carbon Dioxide BUN Creatinine Glucose POC Glucose 198 H 193 H 191 H Lactic Acid Calcium Magnesium Ferritin Total Bilirubin Direct Bilirubin AST ALT Alkaline Phosphatase Lactate Dehydrogenase C-Reactive Protein Total Protein Albumin Triglycerides Lipase Arterial Blood Glucose Arterial Blood Ionized Calcium Urine WBC (Auto) Coronavirus (PCR) SARS-CoV-2 IgG Ab Crossmatch 06/26/20 06/27/20 06/27/20 23:40 04:35 05:32 WBC RBC Hgb Hct MCV MCH MCHC RDW Lymph % (Auto) [place] % (Auto) Lymph # (Auto) [place] # (Auto) Baso # (Auto) Seg Neutrophils % Seg Neuts % (Manual) Lymphocytes % (Manual) Nucleated RBC % Seg Neutrophils # Seg Neutrophils # Man Lymphocytes # (Manual) Monocytes # (Manual) Eosinophils # (Manual) PT INR APTT D-Dimer Heparin Anti-Xa Level ABG pH 7.464 H POC ABG pCO2 60.8 H POC ABG pO2 ABG pO2 ABG HCO3 ABG O2 Saturation ABG Base Excess ABG Hemoglobin 10.1 L ABG Oxyhemoglobin ABG Sodium ABG Potassium 2.9 L ABG Chloride 92.0 L ABG Glucose 298 H Oxyhemoglobin Carboxyhemoglobin Sodium Potassium Chloride Carbon Dioxide BUN Creatinine Glucose POC Glucose 241 H 211 H Lactic Acid Calcium Magnesium Ferritin Total Bilirubin Direct Bilirubin AST ALT Alkaline Phosphatase Lactate Dehydrogenase C-Reactive Protein Total Protein Albumin Triglycerides Lipase Arterial Blood Glucose 298 H Arterial Blood Ionized Calcium Urine WBC (Auto) Coronavirus (PCR) SARS-CoV-2 IgG Ab Crossmatch 06/27/20 06/27/20 06/27/20 12:37 18:08 20:52 WBC RBC Hgb Hct MCV MCH MCHC RDW Lymph % (Auto) [place] % (Auto) Lymph # (Auto) [place] # (Auto) Baso # (Auto) Seg Neutrophils % Seg Neuts % (Manual) Lymphocytes % (Manual) Nucleated RBC % Seg Neutrophils # Seg Neutrophils # Man Lymphocytes # (Manual) Monocytes # (Manual) Eosinophils # (Manual) PT INR APTT D-Dimer Heparin Anti-Xa Level ABG pH POC ABG pCO2 POC ABG pO2 ABG pO2 ABG HCO3 ABG O2 Saturation ABG Base Excess ABG Hemoglobin ABG Oxyhemoglobin ABG Sodium ABG Potassium ABG Chloride ABG Glucose Oxyhemoglobin Carboxyhemoglobin Sodium Potassium Chloride Carbon Dioxide BUN Creatinine Glucose POC Glucose 182 H 197 H 195 H Lactic Acid Calcium Magnesium Ferritin Total Bilirubin Direct Bilirubin AST ALT Alkaline Phosphatase Lactate Dehydrogenase C-Reactive Protein Total Protein Albumin Triglycerides Lipase Arterial Blood Glucose Arterial Blood Ionized Calcium Urine WBC (Auto) Coronavirus (PCR) SARS-CoV-2 IgG Ab Crossmatch 06/27/20 06/28/20 06/28/20 Unknown 04:17 04:50 WBC RBC Hgb Hct MCV MCH MCHC RDW Lymph % (Auto) [place] % (Auto) Lymph # (Auto) [place] # (Auto) Baso # (Auto) Seg Neutrophils % Seg Neuts % (Manual) Lymphocytes % (Manual) Nucleated RBC % Seg Neutrophils # Seg Neutrophils # Man Lymphocytes # (Manual) Monocytes # (Manual) Eosinophils # (Manual) PT INR APTT D-Dimer Heparin Anti-Xa Level ABG pH POC ABG pCO2 58.6 H POC ABG pO2 60.1 L ABG pO2 ABG HCO3 ABG O2 Saturation ABG Base Excess ABG Hemoglobin 10.0 L ABG Oxyhemoglobin ABG Sodium 125.3 L ABG Potassium ABG Chloride 93.0 L ABG Glucose 308 H Oxyhemoglobin Carboxyhemoglobin Sodium Potassium 2.9 L* Chloride 93.4 L Carbon Dioxide 42 H* BUN Creatinine 0.3 L Glucose 211 H POC Glucose 252 H Lactic Acid Calcium 8.1 L Magnesium Ferritin Total Bilirubin Direct Bilirubin AST ALT Alkaline Phosphatase Lactate Dehydrogenase C-Reactive Protein Total Protein 5.1 L Albumin 2.4 L Triglycerides Lipase Arterial Blood Glucose 308 H Arterial Blood Ionized Calcium Urine WBC (Auto) Coronavirus (PCR) SARS-CoV-2 IgG Ab Crossmatch 06/28/20 06/28/20 06/28/20 06:35 06:35 11:36 WBC 18.9 H RBC 2.85 L Hgb 9.5 L Hct 28.4 L MCV 100 H MCH 33 H MCHC RDW 17.3 H Lymph % (Auto) [place] % (Auto) Lymph # (Auto) [place] # (Auto) Baso # (Auto) Seg Neutrophils % 88.6 H Seg Neuts % (Manual) 95.0 H Lymphocytes % (Manual) 1.0 L Nucleated RBC % Seg Neutrophils # 15.9 H Seg Neutrophils # Man 18.0 H Lymphocytes # (Manual) 0.2 L Monocytes # (Manual) Eosinophils # (Manual) PT INR APTT D-Dimer Heparin Anti-Xa Level ABG pH POC ABG pCO2 POC ABG pO2 ABG pO2 ABG HCO3 ABG O2 Saturation ABG Base Excess ABG Hemoglobin ABG Oxyhemoglobin ABG Sodium ABG Potassium ABG Chloride ABG Glucose Oxyhemoglobin Carboxyhemoglobin Sodium Potassium Chloride 94.2 L Carbon Dioxide 38 H BUN Creatinine 0.3 L Glucose 228 H POC Glucose 243 H Lactic Acid Calcium Magnesium Ferritin Total Bilirubin Direct Bilirubin AST ALT Alkaline Phosphatase Lactate Dehydrogenase C-Reactive Protein Total Protein 6.1 L Albumin 2.7 L Triglycerides Lipase Arterial Blood Glucose Arterial Blood Ionized Calcium Urine WBC (Auto) Coronavirus (PCR) SARS-CoV-2 IgG Ab Crossmatch 06/28/20 06/28/20 06/29/20 16:53 21:10 00:06 WBC RBC Hgb Hct MCV MCH MCHC RDW Lymph % (Auto) [place] % (Auto) Lymph # (Auto) [place] # (Auto) Baso # (Auto) Seg Neutrophils % Seg Neuts % (Manual) Lymphocytes % (Manual) Nucleated RBC % Seg Neutrophils # Seg Neutrophils # Man Lymphocytes # (Manual) Monocytes # (Manual) Eosinophils # (Manual) PT INR APTT D-Dimer Heparin Anti-Xa Level ABG pH POC ABG pCO2 POC ABG pO2 ABG pO2 ABG HCO3 ABG O2 Saturation ABG Base Excess ABG Hemoglobin ABG Oxyhemoglobin ABG Sodium ABG Potassium ABG Chloride ABG Glucose Oxyhemoglobin Carboxyhemoglobin Sodium Potassium Chloride Carbon Dioxide BUN Creatinine Glucose POC Glucose 211 H 195 H 200 H Lactic Acid Calcium Magnesium Ferritin Total Bilirubin Direct Bilirubin AST ALT Alkaline Phosphatase Lactate Dehydrogenase C-Reactive Protein Total Protein Albumin Triglycerides Lipase Arterial Blood Glucose Arterial Blood Ionized Calcium Urine WBC (Auto) Coronavirus (PCR) SARS-CoV-2 IgG Ab Crossmatch 06/29/20 06/29/20 06/29/20 03:11 04:00 04:00 WBC 18.8 H RBC 2.82 L Hgb 10.1 L Hct 28.5 L MCV 101 H MCH 36 H MCHC 36 H RDW 17.5 H Lymph % (Auto) 10.7 L [place] % (Auto) Lymph # (Auto) [place] # (Auto) 1.0 H Baso # (Auto) 0.3 H Seg Neutrophils % 82.2 H Seg Neuts % (Manual) Lymphocytes % (Manual) Nucleated RBC % Seg Neutrophils # 15.5 H Seg Neutrophils # Man Lymphocytes # (Manual) Monocytes # (Manual) Eosinophils # (Manual) PT INR APTT D-Dimer Heparin Anti-Xa Level ABG pH POC ABG pCO2 57.5 H POC ABG pO2 69.1 L ABG pO2 ABG HCO3 ABG O2 Saturation ABG Base Excess ABG Hemoglobin 10.2 L ABG Oxyhemoglobin 92.3 L ABG Sodium 130.7 L ABG Potassium 3.2 L ABG Chloride 93.0 L ABG Glucose 228 H Oxyhemoglobin Carboxyhemoglobin Sodium 134 L Potassium 3.3 L Chloride 89.5 L Carbon Dioxide 40 H BUN Creatinine 0.2 L Glucose 190 H POC Glucose Lactic Acid Calcium Magnesium Ferritin Total Bilirubin Direct Bilirubin AST < 5 L ALT < 5 L Alkaline Phosphatase Lactate Dehydrogenase C-Reactive Protein Total Protein 5.9 L Albumin 2.2 L Triglycerides Lipase Arterial Blood Glucose 228 H Arterial Blood Ionized Calcium Urine WBC (Auto) Coronavirus (PCR) SARS-CoV-2 IgG Ab Crossmatch 06/29/20 06/29/20 06/29/20 05:00 05:23 09:36 WBC RBC Hgb Hct MCV MCH MCHC RDW Lymph % (Auto) [place] % (Auto) Lymph # (Auto) [place] # (Auto) Baso # (Auto) Seg Neutrophils % Seg Neuts % (Manual) Lymphocytes % (Manual) Nucleated RBC % Seg Neutrophils # Seg Neutrophils # Man Lymphocytes # (Manual) Monocytes # (Manual) Eosinophils # (Manual) PT INR APTT D-Dimer Heparin Anti-Xa Level ABG pH POC ABG pCO2 POC ABG pO2 ABG pO2 ABG HCO3 ABG O2 Saturation ABG Base Excess ABG Hemoglobin ABG Oxyhemoglobin ABG Sodium ABG Potassium ABG Chloride ABG Glucose Oxyhemoglobin Carboxyhemoglobin Sodium Potassium Chloride Carbon Dioxide BUN Creatinine Glucose POC Glucose 165 H Lactic Acid Calcium Magnesium Ferritin Total Bilirubin Direct Bilirubin AST ALT Alkaline Phosphatase Lactate Dehydrogenase C-Reactive Protein Total Protein Albumin Triglycerides 1544 H 1799 H Lipase Arterial Blood Glucose Arterial Blood Ionized Calcium Urine WBC (Auto) Coronavirus (PCR) SARS-CoV-2 IgG Ab Crossmatch 06/29/20 06/29/20 06/29/20 09:36 12:02 18:00 WBC RBC Hgb Hct MCV MCH MCHC RDW Lymph % (Auto) [place] % (Auto) Lymph # (Auto) [place] # (Auto) Baso # (Auto) Seg Neutrophils % Seg Neuts % (Manual) Lymphocytes % (Manual) Nucleated RBC % Seg Neutrophils # Seg Neutrophils # Man Lymphocytes # (Manual) Monocytes # (Manual) Eosinophils # (Manual) PT INR APTT D-Dimer Heparin Anti-Xa Level ABG pH POC ABG pCO2 POC ABG pO2 ABG pO2 ABG HCO3 ABG O2 Saturation ABG Base Excess ABG Hemoglobin ABG Oxyhemoglobin ABG Sodium ABG Potassium ABG Chloride ABG Glucose Oxyhemoglobin Carboxyhemoglobin Sodium Potassium Chloride Carbon Dioxide BUN Creatinine Glucose POC Glucose 197 H 187 H Lactic Acid Calcium Magnesium Ferritin Total Bilirubin Direct Bilirubin AST ALT Alkaline Phosphatase Lactate Dehydrogenase C-Reactive Protein Total Protein Albumin Triglycerides Lipase 86 H Arterial Blood Glucose Arterial Blood Ionized Calcium Urine WBC (Auto) Coronavirus (PCR) SARS-CoV-2 IgG Ab Crossmatch 06/29/20 06/30/20 06/30/20 23:33 03:46 05:50 WBC RBC Hgb Hct MCV MCH MCHC RDW Lymph % (Auto) [place] % (Auto) Lymph # (Auto) [place] # (Auto) Baso # (Auto) Seg Neutrophils % Seg Neuts % (Manual) Lymphocytes % (Manual) Nucleated RBC % Seg Neutrophils # Seg Neutrophils # Man Lymphocytes # (Manual) Monocytes # (Manual) Eosinophils # (Manual) PT INR APTT D-Dimer Heparin Anti-Xa Level ABG pH 7.466 H POC ABG pCO2 57.3 H POC ABG pO2 66.1 L ABG pO2 ABG HCO3 ABG O2 Saturation ABG Base Excess ABG Hemoglobin 10.2 L ABG Oxyhemoglobin 92.3 L ABG Sodium 134.4 L ABG Potassium 3.2 L ABG Chloride 94.0 L ABG Glucose 178 H Oxyhemoglobin Carboxyhemoglobin Sodium Potassium Chloride Carbon Dioxide BUN Creatinine Glucose POC Glucose 170 H 170 H Lactic Acid Calcium Magnesium Ferritin Total Bilirubin Direct Bilirubin AST ALT Alkaline Phosphatase Lactate Dehydrogenase C-Reactive Protein Total Protein Albumin Triglycerides Lipase Arterial Blood Glucose 178 H Arterial Blood Ionized Calcium Urine WBC (Auto) Coronavirus (PCR) SARS-CoV-2 IgG Ab Crossmatch 06/30/20 06/30/20 06/30/20 07:00 07:00 12:04 WBC 15.6 H RBC 2.91 L Hgb 9.8 L Hct 29.7 L MCV 102 H MCH 34 H MCHC RDW 17.8 H Lymph % (Auto) [place] % (Auto) Lymph # (Auto) [place] # (Auto) Baso # (Auto) Seg Neutrophils % Seg Neuts % (Manual) Lymphocytes % (Manual) 5.0 L Nucleated RBC % Seg Neutrophils # Seg Neutrophils # Man 14.8 H Lymphocytes # (Manual) 0.8 L Monocytes # (Manual) Eosinophils # (Manual) PT INR APTT D-Dimer Heparin Anti-Xa Level ABG pH POC ABG pCO2 POC ABG pO2 ABG pO2 ABG HCO3 ABG O2 Saturation ABG Base Excess ABG Hemoglobin ABG Oxyhemoglobin ABG Sodium ABG Potassium ABG Chloride ABG Glucose Oxyhemoglobin Carboxyhemoglobin Sodium Potassium Chloride 93.3 L Carbon Dioxide 43 H* BUN Creatinine 0.3 L Glucose 260 H POC Glucose 245 H Lactic Acid Calcium Magnesium Ferritin Total Bilirubin Direct Bilirubin AST ALT Alkaline Phosphatase Lactate Dehydrogenase C-Reactive Protein Total Protein Albumin 2.8 L Triglycerides 452 H Lipase Arterial Blood Glucose Arterial Blood Ionized Calcium Urine WBC (Auto) Coronavirus (PCR) SARS-CoV-2 IgG Ab Crossmatch 06/30/20 07/01/20 07/01/20 17:32 00:02 05:02 WBC RBC Hgb Hct MCV MCH MCHC RDW Lymph % (Auto) [place] % (Auto) Lymph # (Auto) [place] # (Auto) Baso # (Auto) Seg Neutrophils % Seg Neuts % (Manual) Lymphocytes % (Manual) Nucleated RBC % Seg Neutrophils # Seg Neutrophils # Man Lymphocytes # (Manual) Monocytes # (Manual) Eosinophils # (Manual) PT INR APTT D-Dimer Heparin Anti-Xa Level ABG pH POC ABG pCO2 58.1 H POC ABG pO2 ABG pO2 ABG HCO3 ABG O2 Saturation ABG Base Excess ABG Hemoglobin 11.2 L ABG Oxyhemoglobin ABG Sodium 132.7 L ABG Potassium ABG Chloride 92.0 L ABG Glucose 238 H Oxyhemoglobin Carboxyhemoglobin Sodium Potassium Chloride Carbon Dioxide BUN Creatinine Glucose POC Glucose 209 H 208 H Lactic Acid Calcium Magnesium Ferritin Total Bilirubin Direct Bilirubin AST ALT Alkaline Phosphatase Lactate Dehydrogenase C-Reactive Protein Total Protein Albumin Triglycerides Lipase Arterial Blood Glucose 238 H Arterial Blood Ionized Calcium Urine WBC (Auto) Coronavirus (PCR) SARS-CoV-2 IgG Ab Crossmatch 07/01/20 07/01/20 07/01/20 06:16 06:41 06:41 WBC 18.1 H RBC 2.33 L Hgb 7.1 L Hct 21.3 L D MCV MCH MCHC RDW Lymph % (Auto) [place] % (Auto) Lymph # (Auto) [place] # (Auto) Baso # (Auto) Seg Neutrophils % Seg Neuts % (Manual) 82.0 H Lymphocytes % (Manual) 7.0 L Nucleated RBC % 1.0 H Seg Neutrophils # Seg Neutrophils # Man 14.8 H Lymphocytes # (Manual) Monocytes # (Manual) 1.1 H Eosinophils # (Manual) 0.5 H PT INR APTT D-Dimer Heparin Anti-Xa Level < 0.10 L ABG pH POC ABG pCO2 POC ABG pO2 ABG pO2 ABG HCO3 ABG O2 Saturation ABG Base Excess ABG Hemoglobin ABG Oxyhemoglobin ABG Sodium ABG Potassium ABG Chloride ABG Glucose Oxyhemoglobin Carboxyhemoglobin Sodium Potassium Chloride Carbon Dioxide BUN Creatinine Glucose POC Glucose 180 H Lactic Acid Calcium Magnesium Ferritin Total Bilirubin Direct Bilirubin AST ALT Alkaline Phosphatase Lactate Dehydrogenase C-Reactive Protein Total Protein Albumin Triglycerides Lipase Arterial Blood Glucose Arterial Blood Ionized Calcium Urine WBC (Auto) Coronavirus (PCR) SARS-CoV-2 IgG Ab Crossmatch 07/01/20 07/01/20 07/01/20 08:11 12:04 16:16 WBC RBC Hgb Hct MCV MCH MCHC RDW Lymph % (Auto) [place] % (Auto) Lymph # (Auto) [place] # (Auto) Baso # (Auto) Seg Neutrophils % Seg Neuts % (Manual) Lymphocytes % (Manual) Nucleated RBC % Seg Neutrophils # Seg Neutrophils # Man Lymphocytes # (Manual) Monocytes # (Manual) Eosinophils # (Manual) PT INR APTT D-Dimer Heparin Anti-Xa Level 1.02 H ABG pH POC ABG pCO2 POC ABG pO2 ABG pO2 ABG HCO3 ABG O2 Saturation ABG Base Excess ABG Hemoglobin ABG Oxyhemoglobin ABG Sodium ABG Potassium ABG Chloride ABG Glucose Oxyhemoglobin Carboxyhemoglobin Sodium 135 L Potassium 3.0 L Chloride 93.1 L Carbon Dioxide 40 H BUN Creatinine 0.3 L Glucose 140 H POC Glucose 223 H Lactic Acid Calcium Magnesium Ferritin Total Bilirubin Direct Bilirubin AST ALT Alkaline Phosphatase Lactate Dehydrogenase C-Reactive Protein Total Protein Albumin Triglycerides Lipase Arterial Blood Glucose Arterial Blood Ionized Calcium Urine WBC (Auto) Coronavirus (PCR) SARS-CoV-2 IgG Ab Crossmatch 07/01/20 07/01/20 07/02/20 17:09 23:19 00:56 WBC RBC Hgb Hct MCV MCH MCHC RDW Lymph % (Auto) [place] % (Auto) Lymph # (Auto) [place] # (Auto) Baso # (Auto) Seg Neutrophils % Seg Neuts % (Manual) Lymphocytes % (Manual) Nucleated RBC % Seg Neutrophils # Seg Neutrophils # Man Lymphocytes # (Manual) Monocytes # (Manual) Eosinophils # (Manual) PT INR APTT D-Dimer Heparin Anti-Xa Level 0.22 L ABG pH POC ABG pCO2 POC ABG pO2 ABG pO2 ABG HCO3 ABG O2 Saturation ABG Base Excess ABG Hemoglobin ABG Oxyhemoglobin ABG Sodium ABG Potassium ABG Chloride ABG Glucose Oxyhemoglobin Carboxyhemoglobin Sodium Potassium Chloride Carbon Dioxide BUN Creatinine Glucose POC Glucose 233 H 255 H Lactic Acid Calcium Magnesium Ferritin Total Bilirubin Direct Bilirubin AST ALT Alkaline Phosphatase Lactate Dehydrogenase C-Reactive Protein Total Protein Albumin Triglycerides Lipase Arterial Blood Glucose Arterial Blood Ionized Calcium Urine WBC (Auto) Coronavirus (PCR) SARS-CoV-2 IgG Ab Crossmatch 07/02/20 07/02/20 07/02/20 03:51 05:35 11:39 WBC RBC Hgb Hct MCV MCH MCHC RDW Lymph % (Auto) [place] % (Auto) Lymph # (Auto) [place] # (Auto) Baso # (Auto) Seg Neutrophils % Seg Neuts % (Manual) Lymphocytes % (Manual) Nucleated RBC % Seg Neutrophils # Seg Neutrophils # Man Lymphocytes # (Manual) Monocytes # (Manual) Eosinophils # (Manual) PT INR APTT D-Dimer Heparin Anti-Xa Level ABG pH POC ABG pCO2 54.9 H POC ABG pO2 52.1 L ABG pO2 ABG HCO3 ABG O2 Saturation ABG Base Excess ABG Hemoglobin 11.9 L ABG Oxyhemoglobin 82.8 L ABG Sodium 130.2 L ABG Potassium ABG Chloride 92.0 L ABG Glucose 249 H Oxyhemoglobin Carboxyhemoglobin 1.9 H Sodium Potassium Chloride Carbon Dioxide BUN Creatinine Glucose POC Glucose 205 H 235 H Lactic Acid Calcium Magnesium Ferritin Total Bilirubin Direct Bilirubin AST ALT Alkaline Phosphatase Lactate Dehydrogenase C-Reactive Protein Total Protein Albumin Triglycerides Lipase Arterial Blood Glucose 249 H Arterial Blood Ionized Calcium Urine WBC (Auto) Coronavirus (PCR) SARS-CoV-2 IgG Ab Crossmatch 07/02/20 07/02/20 07/02/20 16:08 16:08 17:54 WBC 19.8 H RBC 3.28 L Hgb 10.7 L D Hct 32.7 L D MCV 100 H MCH 33 H MCHC RDW 17.2 H Lymph % (Auto) [place] % (Auto) Lymph # (Auto) [place] # (Auto) Baso # (Auto) Seg Neutrophils % Seg Neuts % (Manual) Lymphocytes % (Manual) Nucleated RBC % Seg Neutrophils # Seg Neutrophils # Man Lymphocytes # (Manual) Monocytes # (Manual) Eosinophils # (Manual) PT INR APTT D-Dimer Heparin Anti-Xa Level ABG pH POC ABG pCO2 POC ABG pO2 ABG pO2 ABG HCO3 ABG O2 Saturation ABG Base Excess ABG Hemoglobin ABG Oxyhemoglobin ABG Sodium ABG Potassium ABG Chloride ABG Glucose Oxyhemoglobin Carboxyhemoglobin Sodium 136 L Potassium Chloride 92.4 L Carbon Dioxide 35 H BUN Creatinine 0.3 L Glucose 203 H POC Glucose 175 H Lactic Acid Calcium Magnesium Ferritin Total Bilirubin Direct Bilirubin AST ALT Alkaline Phosphatase Lactate Dehydrogenase C-Reactive Protein Total Protein Albumin Triglycerides Lipase Arterial Blood Glucose Arterial Blood Ionized Calcium Urine WBC (Auto) Coronavirus (PCR) SARS-CoV-2 IgG Ab Crossmatch 07/02/20 07/03/20 07/03/20 23:46 03:25 05:54 WBC RBC Hgb Hct MCV MCH MCHC RDW Lymph % (Auto) [place] % (Auto) Lymph # (Auto) [place] # (Auto) Baso # (Auto) Seg Neutrophils % Seg Neuts % (Manual) Lymphocytes % (Manual) Nucleated RBC % Seg Neutrophils # Seg Neutrophils # Man Lymphocytes # (Manual) Monocytes # (Manual) Eosinophils # (Manual) PT INR APTT D-Dimer Heparin Anti-Xa Level ABG pH 7.468 H POC ABG pCO2 51.5 H POC ABG pO2 ABG pO2 ABG HCO3 ABG O2 Saturation ABG Base Excess ABG Hemoglobin ABG Oxyhemoglobin ABG Sodium 130.2 L ABG Potassium ABG Chloride 91.0 L ABG Glucose 210 H Oxyhemoglobin Carboxyhemoglobin 1.6 H Sodium Potassium Chloride Carbon Dioxide BUN Creatinine Glucose POC Glucose 173 H 125 H Lactic Acid Calcium Magnesium Ferritin Total Bilirubin Direct Bilirubin AST ALT Alkaline Phosphatase Lactate Dehydrogenase C-Reactive Protein Total Protein Albumin Triglycerides Lipase Arterial Blood Glucose 210 H Arterial Blood Ionized Calcium Urine WBC (Auto) Coronavirus (PCR) SARS-CoV-2 IgG Ab Crossmatch 07/03/20 07/03/20 07/03/20 11:43 12:20 12:20 WBC 16.5 H RBC 3.13 L Hgb 10.4 L Hct 31.8 L MCV 102 H MCH 33 H MCHC RDW 17.2 H Lymph % (Auto) [place] % (Auto) Lymph # (Auto) [place] # (Auto) Baso # (Auto) Seg Neutrophils % Seg Neuts % (Manual) Lymphocytes % (Manual) Nucleated RBC % Seg Neutrophils # Seg Neutrophils # Man Lymphocytes # (Manual) Monocytes # (Manual) Eosinophils # (Manual) PT INR APTT D-Dimer Heparin Anti-Xa Level ABG pH POC ABG pCO2 POC ABG pO2 ABG pO2 ABG HCO3 ABG O2 Saturation ABG Base Excess ABG Hemoglobin ABG Oxyhemoglobin ABG Sodium ABG Potassium ABG Chloride ABG Glucose Oxyhemoglobin Carboxyhemoglobin Sodium 132 L Potassium Chloride 88.5 L Carbon Dioxide 37 H BUN Creatinine 0.3 L Glucose 230 H POC Glucose 223 H Lactic Acid Calcium Magnesium Ferritin Total Bilirubin Direct Bilirubin AST ALT Alkaline Phosphatase Lactate Dehydrogenase C-Reactive Protein Total Protein Albumin Triglycerides Lipase Arterial Blood Glucose Arterial Blood Ionized Calcium Urine WBC (Auto) Coronavirus (PCR) SARS-CoV-2 IgG Ab Crossmatch 07/03/20 07/03/20 07/04/20 17:24 21:41 00:54 WBC RBC Hgb Hct MCV MCH MCHC RDW Lymph % (Auto) [place] % (Auto) Lymph # (Auto) [place] # (Auto) Baso # (Auto) Seg Neutrophils % Seg Neuts % (Manual) Lymphocytes % (Manual) Nucleated RBC % Seg Neutrophils # Seg Neutrophils # Man Lymphocytes # (Manual) Monocytes # (Manual) Eosinophils # (Manual) PT INR APTT D-Dimer Heparin Anti-Xa Level ABG pH POC ABG pCO2 POC ABG pO2 ABG pO2 ABG HCO3 ABG O2 Saturation ABG Base Excess ABG Hemoglobin ABG Oxyhemoglobin ABG Sodium ABG Potassium ABG Chloride ABG Glucose Oxyhemoglobin Carboxyhemoglobin Sodium Potassium Chloride Carbon Dioxide BUN Creatinine Glucose POC Glucose 163 H 220 H 195 H Lactic Acid Calcium Magnesium Ferritin Total Bilirubin Direct Bilirubin AST ALT Alkaline Phosphatase Lactate Dehydrogenase C-Reactive Protein Total Protein Albumin Triglycerides Lipase Arterial Blood Glucose Arterial Blood Ionized Calcium Urine WBC (Auto) Coronavirus (PCR) SARS-CoV-2 IgG Ab Crossmatch 07/04/20 07/04/20 07/04/20 03:25 04:00 04:00 WBC 14.9 H RBC 2.91 L Hgb 9.5 L Hct 29.2 L MCV 100 H MCH 33 H MCHC RDW 16.7 H Lymph % (Auto) 8.4 L [place] % (Auto) Lymph # (Auto) [place] # (Auto) 1.1 H Baso # (Auto) Seg Neutrophils % 84.2 H Seg Neuts % (Manual) Lymphocytes % (Manual) Nucleated RBC % Seg Neutrophils # 12.6 H Seg Neutrophils # Man Lymphocytes # (Manual) Monocytes # (Manual) Eosinophils # (Manual) PT INR APTT D-Dimer Heparin Anti-Xa Level ABG pH 7.474 H POC ABG pCO2 POC ABG pO2 51.8 L ABG pO2 ABG HCO3 ABG O2 Saturation ABG Base Excess ABG Hemoglobin ABG Oxyhemoglobin ABG Sodium ABG Potassium ABG Chloride ABG Glucose Oxyhemoglobin Carboxyhemoglobin Sodium Potassium 3.4 L Chloride 92.1 L Carbon Dioxide 34 H BUN Creatinine 0.3 L Glucose 173 H POC Glucose Lactic Acid Calcium Magnesium Ferritin Total Bilirubin Direct Bilirubin AST ALT Alkaline Phosphatase Lactate Dehydrogenase C-Reactive Protein Total Protein Albumin Triglycerides Lipase Arterial Blood Glucose Arterial Blood Ionized Calcium Urine WBC (Auto) Coronavirus (PCR) SARS-CoV-2 IgG Ab Crossmatch 07/04/20 07/04/20 07/04/20 06:18 11:39 17:18 WBC RBC Hgb Hct MCV MCH MCHC RDW Lymph % (Auto) [place] % (Auto) Lymph # (Auto) [place] # (Auto) Baso # (Auto) Seg Neutrophils % Seg Neuts % (Manual) Lymphocytes % (Manual) Nucleated RBC % Seg Neutrophils # Seg Neutrophils # Man Lymphocytes # (Manual) Monocytes # (Manual) Eosinophils # (Manual) PT INR APTT D-Dimer Heparin Anti-Xa Level ABG pH POC ABG pCO2 POC ABG pO2 ABG pO2 ABG HCO3 ABG O2 Saturation ABG Base Excess ABG Hemoglobin ABG Oxyhemoglobin ABG Sodium ABG Potassium ABG Chloride ABG Glucose Oxyhemoglobin Carboxyhemoglobin Sodium Potassium Chloride Carbon Dioxide BUN Creatinine Glucose POC Glucose 158 H 257 H 148 H Lactic Acid Calcium Magnesium Ferritin Total Bilirubin Direct Bilirubin AST ALT Alkaline Phosphatase Lactate Dehydrogenase C-Reactive Protein Total Protein Albumin Triglycerides Lipase Arterial Blood Glucose Arterial Blood Ionized Calcium Urine WBC (Auto) Coronavirus (PCR) SARS-CoV-2 IgG Ab Crossmatch 07/04/20 07/05/20 07/05/20 23:23 03:13 05:18 WBC 13.3 H RBC 2.90 L Hgb 9.8 L Hct 29.3 L MCV 101 H MCH 34 H MCHC RDW 17.0 H Lymph % (Auto) 11.1 L [place] % (Auto) Lymph # (Auto) [place] # (Auto) Baso # (Auto) Seg Neutrophils % 82.3 H Seg Neuts % (Manual) Lymphocytes % (Manual) Nucleated RBC % Seg Neutrophils # 10.9 H Seg Neutrophils # Man Lymphocytes # (Manual) Monocytes # (Manual) Eosinophils # (Manual) PT INR APTT D-Dimer Heparin Anti-Xa Level ABG pH 7.48 H POC ABG pCO2 52.0 H POC ABG pO2 ABG pO2 ABG HCO3 ABG O2 Saturation ABG Base Excess ABG Hemoglobin 10.0 L ABG Oxyhemoglobin ABG Sodium 131.0 L ABG Potassium 3.3 L ABG Chloride 93.0 L ABG Glucose 177 H Oxyhemoglobin Carboxyhemoglobin Sodium Potassium Chloride Carbon Dioxide BUN Creatinine Glucose POC Glucose 227 H Lactic Acid Calcium Magnesium Ferritin Total Bilirubin Direct Bilirubin AST ALT Alkaline Phosphatase Lactate Dehydrogenase C-Reactive Protein Total Protein Albumin Triglycerides Lipase Arterial Blood Glucose 177 H Arterial Blood Ionized Calcium Urine WBC (Auto) Coronavirus (PCR) SARS-CoV-2 IgG Ab Crossmatch 07/05/20 07/05/20 07/05/20 05:18 05:25 05:57 WBC RBC Hgb Hct MCV MCH MCHC RDW Lymph % (Auto) [place] % (Auto) Lymph # (Auto) [place] # (Auto) Baso # (Auto) Seg Neutrophils % Seg Neuts % (Manual) Lymphocytes % (Manual) Nucleated RBC % Seg Neutrophils # Seg Neutrophils # Man Lymphocytes # (Manual) Monocytes # (Manual) Eosinophils # (Manual) PT INR APTT D-Dimer Heparin Anti-Xa Level ABG pH 7.519 H POC ABG pCO2 POC ABG pO2 198.6 H ABG pO2 ABG HCO3 ABG O2 Saturation ABG Base Excess ABG Hemoglobin 10.3 L ABG Oxyhemoglobin 98.7 H ABG Sodium 133.6 L ABG Potassium 3.3 L ABG Chloride 93.0 L ABG Glucose 175 H Oxyhemoglobin Carboxyhemoglobin Sodium Potassium 3.4 L Chloride 92.5 L Carbon Dioxide 36 H BUN Creatinine 0.3 L Glucose 148 H POC Glucose 170 H Lactic Acid Calcium Magnesium Ferritin Total Bilirubin Direct Bilirubin AST ALT Alkaline Phosphatase Lactate Dehydrogenase C-Reactive Protein Total Protein Albumin Triglycerides Lipase Arterial Blood Glucose 175 H Arterial Blood Ionized Calcium Urine WBC (Auto) Coronavirus (PCR) SARS-CoV-2 IgG Ab Crossmatch 07/05/20 07/05/20 07/06/20 11:37 18:39 00:04 WBC RBC Hgb Hct MCV MCH MCHC RDW Lymph % (Auto) [place] % (Auto) Lymph # (Auto) [place] # (Auto) Baso # (Auto) Seg Neutrophils % Seg Neuts % (Manual) Lymphocytes % (Manual) Nucleated RBC % Seg Neutrophils # Seg Neutrophils # Man Lymphocytes # (Manual) Monocytes # (Manual) Eosinophils # (Manual) PT INR APTT D-Dimer Heparin Anti-Xa Level ABG pH POC ABG pCO2 POC ABG pO2 ABG pO2 ABG HCO3 ABG O2 Saturation ABG Base Excess ABG Hemoglobin ABG Oxyhemoglobin ABG Sodium ABG Potassium ABG Chloride ABG Glucose Oxyhemoglobin Carboxyhemoglobin Sodium Potassium Chloride Carbon Dioxide BUN Creatinine Glucose POC Glucose 195 H 200 H 222 H Lactic Acid Calcium Magnesium Ferritin Total Bilirubin Direct Bilirubin AST ALT Alkaline Phosphatase Lactate Dehydrogenase C-Reactive Protein Total Protein Albumin Triglycerides Lipase Arterial Blood Glucose Arterial Blood Ionized Calcium Urine WBC (Auto) Coronavirus (PCR) SARS-CoV-2 IgG Ab Crossmatch 07/06/20 07/06/20 07/06/20 05:25 06:52 06:52 WBC 15.8 H RBC 3.17 L Hgb 10.4 L Hct 31.5 L MCV 99 H MCH 33 H MCHC RDW 17.0 H Lymph % (Auto) [place] % (Auto) Lymph # (Auto) [place] # (Auto) Baso # (Auto) Seg Neutrophils % Seg Neuts % (Manual) Lymphocytes % (Manual) Nucleated RBC % Seg Neutrophils # Seg Neutrophils # Man Lymphocytes # (Manual) Monocytes # (Manual) Eosinophils # (Manual) PT INR APTT D-Dimer Heparin Anti-Xa Level ABG pH POC ABG pCO2 POC ABG pO2 ABG pO2 ABG HCO3 ABG O2 Saturation ABG Base Excess ABG Hemoglobin ABG Oxyhemoglobin ABG Sodium ABG Potassium ABG Chloride ABG Glucose Oxyhemoglobin Carboxyhemoglobin Sodium 135 L Potassium 3.4 L Chloride 91.9 L Carbon Dioxide 38 H BUN Creatinine 0.3 L Glucose 189 H POC Glucose 165 H Lactic Acid Calcium Magnesium Ferritin Total Bilirubin Direct Bilirubin AST ALT Alkaline Phosphatase Lactate Dehydrogenase C-Reactive Protein Total Protein Albumin Triglycerides Lipase Arterial Blood Glucose Arterial Blood Ionized Calcium Urine WBC (Auto) Coronavirus (PCR) SARS-CoV-2 IgG Ab Crossmatch 07/06/20 07/06/20 07/06/20 13:01 18:04 23:08 WBC RBC Hgb Hct MCV MCH MCHC RDW Lymph % (Auto) [place] % (Auto) Lymph # (Auto) [place] # (Auto) Baso # (Auto) Seg Neutrophils % Seg Neuts % (Manual) Lymphocytes % (Manual) Nucleated RBC % Seg Neutrophils # Seg Neutrophils # Man Lymphocytes # (Manual) Monocytes # (Manual) Eosinophils # (Manual) PT INR APTT D-Dimer Heparin Anti-Xa Level ABG pH POC ABG pCO2 POC ABG pO2 ABG pO2 ABG HCO3 ABG O2 Saturation ABG Base Excess ABG Hemoglobin ABG Oxyhemoglobin ABG Sodium ABG Potassium ABG Chloride ABG Glucose Oxyhemoglobin Carboxyhemoglobin Sodium Potassium Chloride Carbon Dioxide BUN Creatinine Glucose POC Glucose 195 H 169 H 173 H Lactic Acid Calcium Magnesium Ferritin Total Bilirubin Direct Bilirubin AST ALT Alkaline Phosphatase Lactate Dehydrogenase C-Reactive Protein Total Protein Albumin Triglycerides Lipase Arterial Blood Glucose Arterial Blood Ionized Calcium Urine WBC (Auto) Coronavirus (PCR) SARS-CoV-2 IgG Ab Crossmatch 07/07/20 07/07/20 07/07/20 05:35 05:35 05:39 WBC 17.6 H RBC 3.16 L Hgb 10.4 L Hct 31.5 L MCV 100 H MCH 33 H MCHC RDW 16.7 H Lymph % (Auto) 11.1 L [place] % (Auto) Lymph # (Auto) [place] # (Auto) 1.0 H Baso # (Auto) Seg Neutrophils % 83.0 H Seg Neuts % (Manual) Lymphocytes % (Manual) Nucleated RBC % Seg Neutrophils # 14.6 H Seg Neutrophils # Man Lymphocytes # (Manual) Monocytes # (Manual) Eosinophils # (Manual) PT INR APTT D-Dimer Heparin Anti-Xa Level ABG pH POC ABG pCO2 POC ABG pO2 ABG pO2 ABG HCO3 ABG O2 Saturation ABG Base Excess ABG Hemoglobin ABG Oxyhemoglobin ABG Sodium ABG Potassium ABG Chloride ABG Glucose Oxyhemoglobin Carboxyhemoglobin Sodium 135 L Potassium 3.4 L Chloride 94.3 L Carbon Dioxide 32 H BUN Creatinine 0.2 L Glucose 240 H POC Glucose 191 H Lactic Acid Calcium Magnesium Ferritin Total Bilirubin Direct Bilirubin AST ALT Alkaline Phosphatase Lactate Dehydrogenase C-Reactive Protein Total Protein Albumin Triglycerides Lipase Arterial Blood Glucose Arterial Blood Ionized Calcium Urine WBC (Auto) Coronavirus (PCR) SARS-CoV-2 IgG Ab Crossmatch 1207/07/20 07/07/20 12:08 16:39 23:41 WBC RBC Hgb Hct MCV MCH MCHC RDW Lymph % (Auto) [place] % (Auto) Lymph # (Auto) [place] # (Auto) Baso # (Auto) Seg Neutrophils % Seg Neuts % (Manual) Lymphocytes % (Manual) Nucleated RBC % Seg Neutrophils # Seg Neutrophils # Man Lymphocytes # (Manual) Monocytes # (Manual) Eosinophils # (Manual) PT INR APTT D-Dimer Heparin Anti-Xa Level ABG pH POC ABG pCO2 POC ABG pO2 ABG pO2 ABG HCO3 ABG O2 Saturation ABG Base Excess ABG Hemoglobin ABG Oxyhemoglobin ABG Sodium ABG Potassium ABG Chloride ABG Glucose Oxyhemoglobin Carboxyhemoglobin Sodium Potassium Chloride Carbon Dioxide BUN Creatinine Glucose POC Glucose 248 H 209 H 231 H Lactic Acid Calcium Magnesium Ferritin Total Bilirubin Direct Bilirubin AST ALT Alkaline Phosphatase Lactate Dehydrogenase C-Reactive Protein Total Protein Albumin Triglycerides Lipase Arterial Blood Glucose Arterial Blood Ionized Calcium Urine WBC (Auto) Coronavirus (PCR) SARS-CoV-2 IgG Ab Crossmatch 07/08/20 07/08/20 07/08/20 04:58 04:58 05:38 WBC 21.0 H RBC 2.86 L Hgb 9.2 L Hct 28.6 L MCV 100 H MCH MCHC RDW 16.7 H Lymph % (Auto) [place] % (Auto) Lymph # (Auto) [place] # (Auto) Baso # (Auto) Seg Neutrophils % Seg Neuts % (Manual) 93.0 H Lymphocytes % (Manual) 3.0 L Nucleated RBC % Seg Neutrophils # Seg Neutrophils # Man 19.5 H Lymphocytes # (Manual) 0.6 L Monocytes # (Manual) Eosinophils # (Manual) PT INR APTT D-Dimer Heparin Anti-Xa Level ABG pH POC ABG pCO2 POC ABG pO2 ABG pO2 ABG HCO3 ABG O2 Saturation ABG Base Excess ABG Hemoglobin ABG Oxyhemoglobin ABG Sodium ABG Potassium ABG Chloride ABG Glucose Oxyhemoglobin Carboxyhemoglobin Sodium Potassium 3.0 L Chloride Carbon Dioxide BUN Creatinine 0.2 L Glucose 201 H POC Glucose 161 H Lactic Acid Calcium 7.9 L D Magnesium Ferritin Total Bilirubin Direct Bilirubin AST ALT Alkaline Phosphatase Lactate Dehydrogenase C-Reactive Protein Total Protein Albumin Triglycerides Lipase Arterial Blood Glucose Arterial Blood Ionized Calcium Urine WBC (Auto) Coronavirus (PCR) SARS-CoV-2 IgG Ab Crossmatch 07/08/20 07/08/20 07/08/20 12:19 16:26 Unknown WBC RBC Hgb Hct MCV MCH MCHC RDW Lymph % (Auto) [place] % (Auto) Lymph # (Auto) [place] # (Auto) Baso # (Auto) Seg Neutrophils % Seg Neuts % (Manual) Lymphocytes % (Manual) Nucleated RBC % Seg Neutrophils # Seg Neutrophils # Man Lymphocytes # (Manual) Monocytes # (Manual) Eosinophils # (Manual) PT INR APTT D-Dimer Heparin Anti-Xa Level ABG pH POC ABG pCO2 POC ABG pO2 ABG pO2 75.3 L ABG HCO3 34.3 H ABG O2 Saturation ABG Base Excess 8.7 H ABG Hemoglobin 10.2 L ABG Oxyhemoglobin ABG Sodium ABG Potassium ABG Chloride ABG Glucose Oxyhemoglobin 93.7 L Carboxyhemoglobin Sodium Potassium Chloride Carbon Dioxide BUN Creatinine Glucose POC Glucose 152 H 173 H Lactic Acid Calcium Magnesium Ferritin Total Bilirubin Direct Bilirubin AST ALT Alkaline Phosphatase Lactate Dehydrogenase C-Reactive Protein Total Protein Albumin Triglycerides Lipase Arterial Blood Glucose Arterial Blood Ionized Calcium Urine WBC (Auto) Coronavirus (PCR) SARS-CoV-2 IgG Ab Crossmatch 07/09/20 07/09/20 07/09/20 00:01 06:00 11:55 WBC RBC Hgb Hct MCV MCH MCHC RDW Lymph % (Auto) [place] % (Auto) Lymph # (Auto) [place] # (Auto) Baso # (Auto) Seg Neutrophils % Seg Neuts % (Manual) Lymphocytes % (Manual) Nucleated RBC % Seg Neutrophils # Seg Neutrophils # Man Lymphocytes # (Manual) Monocytes # (Manual) Eosinophils # (Manual) PT INR APTT D-Dimer Heparin Anti-Xa Level ABG pH POC ABG pCO2 POC ABG pO2 ABG pO2 ABG HCO3 ABG O2 Saturation ABG Base Excess ABG Hemoglobin ABG Oxyhemoglobin ABG Sodium ABG Potassium ABG Chloride ABG Glucose Oxyhemoglobin Carboxyhemoglobin Sodium Potassium Chloride Carbon Dioxide BUN Creatinine Glucose POC Glucose 207 H 141 H 228 H Lactic Acid Calcium Magnesium Ferritin Total Bilirubin Direct Bilirubin AST ALT Alkaline Phosphatase Lactate Dehydrogenase C-Reactive Protein Total Protein Albumin Triglycerides Lipase Arterial Blood Glucose Arterial Blood Ionized Calcium Urine WBC (Auto) Coronavirus (PCR) SARS-CoV-2 IgG Ab Crossmatch 07/09/20 07/09/20 07/09/20 16:47 23:53 Unknown WBC RBC Hgb Hct MCV MCH MCHC RDW Lymph % (Auto) [place] % (Auto) Lymph # (Auto) [place] # (Auto) Baso # (Auto) Seg Neutrophils % Seg Neuts % (Manual) Lymphocytes % (Manual) Nucleated RBC % Seg Neutrophils # Seg Neutrophils # Man Lymphocytes # (Manual) Monocytes # (Manual) Eosinophils # (Manual) PT INR APTT D-Dimer Heparin Anti-Xa Level ABG pH POC ABG pCO2 POC ABG pO2 ABG pO2 ABG HCO3 ABG O2 Saturation ABG Base Excess ABG Hemoglobin ABG Oxyhemoglobin ABG Sodium ABG Potassium ABG Chloride ABG Glucose Oxyhemoglobin Carboxyhemoglobin Sodium 132 L Potassium Chloride 92.7 L Carbon Dioxide 35 H BUN Creatinine 0.2 L Glucose 234 H POC Glucose 136 H 219 H Lactic Acid Calcium Magnesium Ferritin Total Bilirubin Direct Bilirubin AST ALT Alkaline Phosphatase Lactate Dehydrogenase C-Reactive Protein Total Protein Albumin Triglycerides Lipase Arterial Blood Glucose Arterial Blood Ionized Calcium Urine WBC (Auto) Coronavirus (PCR) SARS-CoV-2 IgG Ab Crossmatch 07/10/20 07/10/20 07/10/20 05:20 12:05 18:38 WBC RBC Hgb Hct MCV MCH MCHC RDW Lymph % (Auto) [place] % (Auto) Lymph # (Auto) [place] # (Auto) Baso # (Auto) Seg Neutrophils % Seg Neuts % (Manual) Lymphocytes % (Manual) Nucleated RBC % Seg Neutrophils # Seg Neutrophils # Man Lymphocytes # (Manual) Monocytes # (Manual) Eosinophils # (Manual) PT INR APTT D-Dimer Heparin Anti-Xa Level ABG pH POC ABG pCO2 POC ABG pO2 ABG pO2 ABG HCO3 ABG O2 Saturation ABG Base Excess ABG Hemoglobin ABG Oxyhemoglobin ABG Sodium ABG Potassium ABG Chloride ABG Glucose Oxyhemoglobin Carboxyhemoglobin Sodium Potassium Chloride Carbon Dioxide BUN Creatinine Glucose POC Glucose 221 H 174 H 152 H Lactic Acid Calcium Magnesium Ferritin Total Bilirubin Direct Bilirubin AST ALT Alkaline Phosphatase Lactate Dehydrogenase C-Reactive Protein Total Protein Albumin Triglycerides Lipase Arterial Blood Glucose Arterial Blood Ionized Calcium Urine WBC (Auto) Coronavirus (PCR) SARS-CoV-2 IgG Ab Crossmatch 07/11/20 07/11/20 07/11/20 00:16 05:42 08:13 WBC 11.9 H RBC 3.13 L Hgb 10.2 L Hct 31.2 L MCV 100 H MCH 33 H MCHC RDW 16.4 H Lymph % (Auto) [place] % (Auto) 9.3 H Lymph # (Auto) [place] # (Auto) 1.1 H Baso # (Auto) Seg Neutrophils % 72.7 H Seg Neuts % (Manual) Lymphocytes % (Manual) Nucleated RBC % Seg Neutrophils # 8.7 H Seg Neutrophils # Man Lymphocytes # (Manual) Monocytes # (Manual) Eosinophils # (Manual) PT INR APTT D-Dimer Heparin Anti-Xa Level ABG pH POC ABG pCO2 POC ABG pO2 ABG pO2 ABG HCO3 ABG O2 Saturation ABG Base Excess ABG Hemoglobin ABG Oxyhemoglobin ABG Sodium ABG Potassium ABG Chloride ABG Glucose Oxyhemoglobin Carboxyhemoglobin Sodium Potassium Chloride Carbon Dioxide BUN Creatinine Glucose POC Glucose 170 H 186 H Lactic Acid Calcium Magnesium Ferritin Total Bilirubin Direct Bilirubin AST ALT Alkaline Phosphatase Lactate Dehydrogenase C-Reactive Protein Total Protein Albumin Triglycerides Lipase Arterial Blood Glucose Arterial Blood Ionized Calcium Urine WBC (Auto) Coronavirus (PCR) SARS-CoV-2 IgG Ab Crossmatch 07/11/20 07/11/20 07/11/20 08:13 11:35 18:07 WBC RBC Hgb Hct MCV MCH MCHC RDW Lymph % (Auto) [place] % (Auto) Lymph # (Auto) [place] # (Auto) Baso # (Auto) Seg Neutrophils % Seg Neuts % (Manual) Lymphocytes % (Manual) Nucleated RBC % Seg Neutrophils # Seg Neutrophils # Man Lymphocytes # (Manual) Monocytes # (Manual) Eosinophils # (Manual) PT INR APTT D-Dimer Heparin Anti-Xa Level ABG pH POC ABG pCO2 POC ABG pO2 ABG pO2 ABG HCO3 ABG O2 Saturation ABG Base Excess ABG Hemoglobin ABG Oxyhemoglobin ABG Sodium ABG Potassium ABG Chloride ABG Glucose Oxyhemoglobin Carboxyhemoglobin Sodium 135 L Potassium Chloride 92.8 L Carbon Dioxide 38 H BUN Creatinine 0.2 L Glucose 132 H POC Glucose 129 H 156 H Lactic Acid Calcium Magnesium Ferritin Total Bilirubin Direct Bilirubin AST ALT Alkaline Phosphatase Lactate Dehydrogenase C-Reactive Protein Total Protein Albumin Triglycerides Lipase Arterial Blood Glucose Arterial Blood Ionized Calcium Urine WBC (Auto) Coronavirus (PCR) SARS-CoV-2 IgG Ab Crossmatch 07/11/20 07/11/20 07/12/20 18:36 23:18 05:28 WBC RBC Hgb Hct MCV MCH MCHC RDW Lymph % (Auto) [place] % (Auto) Lymph # (Auto) [place] # (Auto) Baso # (Auto) Seg Neutrophils % Seg Neuts % (Manual) Lymphocytes % (Manual) Nucleated RBC % Seg Neutrophils # Seg Neutrophils # Man Lymphocytes # (Manual) Monocytes # (Manual) Eosinophils # (Manual) PT INR APTT D-Dimer Heparin Anti-Xa Level ABG pH POC ABG pCO2 POC ABG pO2 70.9 L ABG pO2 ABG HCO3 ABG O2 Saturation ABG Base Excess ABG Hemoglobin 10.8 L ABG Oxyhemoglobin 92.5 L ABG Sodium 131.8 L ABG Potassium 3.2 L ABG Chloride 91.0 L ABG Glucose 181 H Oxyhemoglobin Carboxyhemoglobin Sodium Potassium Chloride Carbon Dioxide BUN Creatinine Glucose POC Glucose 189 H 190 H Lactic Acid Calcium Magnesium Ferritin Total Bilirubin Direct Bilirubin AST ALT Alkaline Phosphatase Lactate Dehydrogenase C-Reactive Protein Total Protein Albumin Triglycerides Lipase Arterial Blood Glucose 181 H Arterial Blood Ionized Calcium Urine WBC (Auto) Coronavirus (PCR) SARS-CoV-2 IgG Ab Crossmatch 07/12/20 07/12/20 07/12/20 11:33 17:45 23:59 WBC RBC Hgb Hct MCV MCH MCHC RDW Lymph % (Auto) [place] % (Auto) Lymph # (Auto) [place] # (Auto) Baso # (Auto) Seg Neutrophils % Seg Neuts % (Manual) Lymphocytes % (Manual) Nucleated RBC % Seg Neutrophils # Seg Neutrophils # Man Lymphocytes # (Manual) Monocytes # (Manual) Eosinophils # (Manual) PT INR APTT D-Dimer Heparin Anti-Xa Level ABG pH POC ABG pCO2 POC ABG pO2 ABG pO2 ABG HCO3 ABG O2 Saturation ABG Base Excess ABG Hemoglobin ABG Oxyhemoglobin ABG Sodium ABG Potassium ABG Chloride ABG Glucose Oxyhemoglobin Carboxyhemoglobin Sodium Potassium Chloride Carbon Dioxide BUN Creatinine Glucose POC Glucose 151 H 211 H 169 H Lactic Acid Calcium Magnesium Ferritin Total Bilirubin Direct Bilirubin AST ALT Alkaline Phosphatase Lactate Dehydrogenase C-Reactive Protein Total Protein Albumin Triglycerides Lipase Arterial Blood Glucose Arterial Blood Ionized Calcium Urine WBC (Auto) Coronavirus (PCR) SARS-CoV-2 IgG Ab Crossmatch 07/13/20 07/13/20 07/13/20 05:44 08:31 08:31 WBC 21.3 H RBC 2.92 L Hgb 9.7 L Hct 28.7 L MCV 98 H MCH 33 H MCHC RDW 16.8 H Lymph % (Auto) [place] % (Auto) Lymph # (Auto) [place] # (Auto) Baso # (Auto) Seg Neutrophils % Seg Neuts % (Manual) 96.0 H Lymphocytes % (Manual) 2.0 L Nucleated RBC % Seg Neutrophils # Seg Neutrophils # Man 20.4 H Lymphocytes # (Manual) 0.4 L Monocytes # (Manual) Eosinophils # (Manual) PT INR APTT D-Dimer Heparin Anti-Xa Level ABG pH POC ABG pCO2 POC ABG pO2 ABG pO2 ABG HCO3 ABG O2 Saturation ABG Base Excess ABG Hemoglobin ABG Oxyhemoglobin ABG Sodium ABG Potassium ABG Chloride ABG Glucose Oxyhemoglobin Carboxyhemoglobin Sodium Potassium 2.9 L* D Chloride 94.4 L Carbon Dioxide 37 H BUN Creatinine 0.2 L Glucose 166 H POC Glucose 122 H Lactic Acid Calcium Magnesium Ferritin Total Bilirubin Direct Bilirubin AST ALT Alkaline Phosphatase Lactate Dehydrogenase C-Reactive Protein Total Protein Albumin Triglycerides Lipase Arterial Blood Glucose Arterial Blood Ionized Calcium Urine WBC (Auto) Coronavirus (PCR) SARS-CoV-2 IgG Ab Crossmatch 07/13/20 07/13/20 07/13/20 11:54 13:52 17:40 WBC RBC Hgb Hct MCV MCH MCHC RDW Lymph % (Auto) [place] % (Auto) Lymph # (Auto) [place] # (Auto) Baso # (Auto) Seg Neutrophils % Seg Neuts % (Manual) Lymphocytes % (Manual) Nucleated RBC % Seg Neutrophils # Seg Neutrophils # Man Lymphocytes # (Manual) Monocytes # (Manual) Eosinophils # (Manual) PT INR APTT D-Dimer Heparin Anti-Xa Level ABG pH 7.477 H POC ABG pCO2 54.4 H POC ABG pO2 126.8 H ABG pO2 ABG HCO3 ABG O2 Saturation ABG Base Excess ABG Hemoglobin 11.5 L ABG Oxyhemoglobin ABG Sodium ABG Potassium 3.2 L ABG Chloride 92.0 L ABG Glucose 169 H Oxyhemoglobin Carboxyhemoglobin Sodium Potassium Chloride Carbon Dioxide BUN Creatinine Glucose POC Glucose 132 H 128 H Lactic Acid Calcium Magnesium Ferritin Total Bilirubin Direct Bilirubin AST ALT Alkaline Phosphatase Lactate Dehydrogenase C-Reactive Protein Total Protein Albumin Triglycerides Lipase Arterial Blood Glucose 169 H Arterial Blood Ionized Calcium Urine WBC (Auto) Coronavirus (PCR) SARS-CoV-2 IgG Ab Crossmatch 07/14/20 07/14/20 07/15/20 07:49 17:09 05:27 WBC RBC Hgb Hct MCV MCH MCHC RDW Lymph % (Auto) [place] % (Auto) Lymph # (Auto) [place] # (Auto) Baso # (Auto) Seg Neutrophils % Seg Neuts % (Manual) Lymphocytes % (Manual) Nucleated RBC % Seg Neutrophils # Seg Neutrophils # Man Lymphocytes # (Manual) Monocytes # (Manual) Eosinophils # (Manual) PT INR APTT D-Dimer Heparin Anti-Xa Level ABG pH POC ABG pCO2 POC ABG pO2 ABG pO2 ABG HCO3 ABG O2 Saturation ABG Base Excess ABG Hemoglobin ABG Oxyhemoglobin ABG Sodium ABG Potassium ABG Chloride ABG Glucose Oxyhemoglobin Carboxyhemoglobin Sodium Potassium 2.7 L* Chloride 94.0 L Carbon Dioxide 37 H BUN Creatinine 0.3 L Glucose 110 H POC Glucose 152 H 61 L Lactic Acid Calcium Magnesium Ferritin Total Bilirubin Direct Bilirubin AST ALT Alkaline Phosphatase Lactate Dehydrogenase C-Reactive Protein Total Protein Albumin Triglycerides Lipase Arterial Blood Glucose Arterial Blood Ionized Calcium Urine WBC (Auto) Coronavirus (PCR) SARS-CoV-2 IgG Ab Crossmatch 07/15/20 07/15/20 07/15/20 05:31 11:49 17:18 WBC RBC Hgb Hct MCV MCH MCHC RDW Lymph % (Auto) [place] % (Auto) Lymph # (Auto) [place] # (Auto) Baso # (Auto) Seg Neutrophils % Seg Neuts % (Manual) Lymphocytes % (Manual) Nucleated RBC % Seg Neutrophils # Seg Neutrophils # Man Lymphocytes # (Manual) Monocytes # (Manual) Eosinophils # (Manual) PT INR APTT D-Dimer Heparin Anti-Xa Level ABG pH POC ABG pCO2 POC ABG pO2 ABG pO2 ABG HCO3 ABG O2 Saturation ABG Base Excess ABG Hemoglobin ABG Oxyhemoglobin ABG Sodium ABG Potassium ABG Chloride ABG Glucose Oxyhemoglobin Carboxyhemoglobin Sodium Potassium 3.2 L Chloride 91.2 L Carbon Dioxide 33 H BUN Creatinine 0.3 L Glucose 139 H POC Glucose 148 H 196 H Lactic Acid Calcium Magnesium Ferritin Total Bilirubin Direct Bilirubin AST ALT Alkaline Phosphatase Lactate Dehydrogenase C-Reactive Protein Total Protein Albumin Triglycerides Lipase Arterial Blood Glucose Arterial Blood Ionized Calcium Urine WBC (Auto) Coronavirus (PCR) SARS-CoV-2 IgG Ab Crossmatch 07/15/20 07/16/20 07/16/20 23:08 05:18 05:19 WBC 11.3 H RBC 3.10 L Hgb 10.0 L Hct 30.3 L MCV 98 H MCH MCHC RDW 16.3 H Lymph % (Auto) [place] % (Auto) Lymph # (Auto) [place] # (Auto) Baso # (Auto) Seg Neutrophils % Seg Neuts % (Manual) Lymphocytes % (Manual) Nucleated RBC % Seg Neutrophils # Seg Neutrophils # Man Lymphocytes # (Manual) Monocytes # (Manual) Eosinophils # (Manual) PT INR APTT D-Dimer Heparin Anti-Xa Level ABG pH POC ABG pCO2 POC ABG pO2 ABG pO2 ABG HCO3 ABG O2 Saturation ABG Base Excess ABG Hemoglobin ABG Oxyhemoglobin ABG Sodium ABG Potassium ABG Chloride ABG Glucose Oxyhemoglobin Carboxyhemoglobin Sodium Potassium Chloride Carbon Dioxide BUN Creatinine Glucose POC Glucose 131 H 160 H Lactic Acid Calcium Magnesium Ferritin Total Bilirubin Direct Bilirubin AST ALT Alkaline Phosphatase Lactate Dehydrogenase C-Reactive Protein Total Protein Albumin Triglycerides Lipase Arterial Blood Glucose Arterial Blood Ionized Calcium Urine WBC (Auto) Coronavirus (PCR) SARS-CoV-2 IgG Ab Crossmatch 07/16/20 07/16/20 07/16/20 05:19 11:45 17:17 WBC RBC Hgb Hct MCV MCH MCHC RDW Lymph % (Auto) [place] % (Auto) Lymph # (Auto) [place] # (Auto) Baso # (Auto) Seg Neutrophils % Seg Neuts % (Manual) Lymphocytes % (Manual) Nucleated RBC % Seg Neutrophils # Seg Neutrophils # Man Lymphocytes # (Manual) Monocytes # (Manual) Eosinophils # (Manual) PT INR APTT D-Dimer Heparin Anti-Xa Level ABG pH POC ABG pCO2 POC ABG pO2 ABG pO2 ABG HCO3 ABG O2 Saturation ABG Base Excess ABG Hemoglobin ABG Oxyhemoglobin ABG Sodium ABG Potassium ABG Chloride ABG Glucose Oxyhemoglobin Carboxyhemoglobin Sodium 132 L Potassium 3.4 L Chloride 89.9 L Carbon Dioxide 39 H BUN Creatinine 0.3 L Glucose 174 H POC Glucose 169 H 143 H Lactic Acid Calcium Magnesium Ferritin Total Bilirubin Direct Bilirubin AST ALT Alkaline Phosphatase Lactate Dehydrogenase C-Reactive Protein Total Protein Albumin Triglycerides Lipase Arterial Blood Glucose Arterial Blood Ionized Calcium Urine WBC (Auto) Coronavirus (PCR) SARS-CoV-2 IgG Ab Crossmatch 07/16/20 07/17/20 07/17/20 23:54 05:32 11:26 WBC RBC Hgb Hct MCV MCH MCHC RDW Lymph % (Auto) [place] % (Auto) Lymph # (Auto) [place] # (Auto) Baso # (Auto) Seg Neutrophils % Seg Neuts % (Manual) Lymphocytes % (Manual) Nucleated RBC % Seg Neutrophils # Seg Neutrophils # Man Lymphocytes # (Manual) Monocytes # (Manual) Eosinophils # (Manual) PT INR APTT D-Dimer Heparin Anti-Xa Level ABG pH POC ABG pCO2 POC ABG pO2 ABG pO2 ABG HCO3 ABG O2 Saturation ABG Base Excess ABG Hemoglobin ABG Oxyhemoglobin ABG Sodium ABG Potassium ABG Chloride ABG Glucose Oxyhemoglobin Carboxyhemoglobin Sodium Potassium Chloride Carbon Dioxide BUN Creatinine Glucose POC Glucose 147 H 149 H 211 H Lactic Acid Calcium Magnesium Ferritin Total Bilirubin Direct Bilirubin AST ALT Alkaline Phosphatase Lactate Dehydrogenase C-Reactive Protein Total Protein Albumin Triglycerides Lipase Arterial Blood Glucose Arterial Blood Ionized Calcium Urine WBC (Auto) Coronavirus (PCR) SARS-CoV-2 IgG Ab Crossmatch 07/17/20 07/17/20 07/18/20 18:16 23:12 06:15 WBC RBC Hgb Hct MCV MCH MCHC RDW Lymph % (Auto) [place] % (Auto) Lymph # (Auto) [place] # (Auto) Baso # (Auto) Seg Neutrophils % Seg Neuts % (Manual) Lymphocytes % (Manual) Nucleated RBC % Seg Neutrophils # Seg Neutrophils # Man Lymphocytes # (Manual) Monocytes # (Manual) Eosinophils # (Manual) PT INR APTT D-Dimer Heparin Anti-Xa Level ABG pH POC ABG pCO2 POC ABG pO2 ABG pO2 ABG HCO3 ABG O2 Saturation ABG Base Excess ABG Hemoglobin ABG Oxyhemoglobin ABG Sodium ABG Potassium ABG Chloride ABG Glucose Oxyhemoglobin Carboxyhemoglobin Sodium Potassium Chloride Carbon Dioxide BUN Creatinine Glucose POC Glucose 161 H 136 H 108 H Lactic Acid Calcium Magnesium Ferritin Total Bilirubin Direct Bilirubin AST ALT Alkaline Phosphatase Lactate Dehydrogenase C-Reactive Protein Total Protein Albumin Triglycerides Lipase Arterial Blood Glucose Arterial Blood Ionized Calcium Urine WBC (Auto) Coronavirus (PCR) SARS-CoV-2 IgG Ab Crossmatch 07/18/20 07/18/20 07/18/20 08:47 08:47 11:50 WBC 17.7 H RBC 3.29 L Hgb 10.5 L Hct 31.8 L MCV 97 H MCH MCHC RDW 16.9 H Lymph % (Auto) [place] % (Auto) 8.6 H Lymph # (Auto) [place] # (Auto) 1.5 H Baso # (Auto) Seg Neutrophils % 74.6 H Seg Neuts % (Manual) Lymphocytes % (Manual) Nucleated RBC % Seg Neutrophils # 13.2 H Seg Neutrophils # Man Lymphocytes # (Manual) Monocytes # (Manual) Eosinophils # (Manual) PT INR APTT D-Dimer Heparin Anti-Xa Level ABG pH POC ABG pCO2 POC ABG pO2 ABG pO2 ABG HCO3 ABG O2 Saturation ABG Base Excess ABG Hemoglobin ABG Oxyhemoglobin ABG Sodium ABG Potassium ABG Chloride ABG Glucose Oxyhemoglobin Carboxyhemoglobin Sodium Potassium 2.8 L* Chloride 92.6 L Carbon Dioxide 40 H BUN Creatinine 0.3 L Glucose 177 H POC Glucose 178 H Lactic Acid Calcium Magnesium Ferritin Total Bilirubin Direct Bilirubin AST ALT Alkaline Phosphatase Lactate Dehydrogenase C-Reactive Protein Total Protein Albumin Triglycerides Lipase Arterial Blood Glucose Arterial Blood Ionized Calcium Urine WBC (Auto) Coronavirus (PCR) SARS-CoV-2 IgG Ab Crossmatch 07/18/20 07/18/20 07/19/20 17:18 23:33 05:22 WBC RBC Hgb Hct MCV MCH MCHC RDW Lymph % (Auto) [place] % (Auto) Lymph # (Auto) [place] # (Auto) Baso # (Auto) Seg Neutrophils % Seg Neuts % (Manual) Lymphocytes % (Manual) Nucleated RBC % Seg Neutrophils # Seg Neutrophils # Man Lymphocytes # (Manual) Monocytes # (Manual) Eosinophils # (Manual) PT INR APTT D-Dimer Heparin Anti-Xa Level ABG pH POC ABG pCO2 POC ABG pO2 ABG pO2 ABG HCO3 ABG O2 Saturation ABG Base Excess ABG Hemoglobin ABG Oxyhemoglobin ABG Sodium ABG Potassium ABG Chloride ABG Glucose Oxyhemoglobin Carboxyhemoglobin Sodium Potassium Chloride Carbon Dioxide BUN Creatinine Glucose POC Glucose 171 H 162 H 166 H Lactic Acid Calcium Magnesium Ferritin Total Bilirubin Direct Bilirubin AST ALT Alkaline Phosphatase Lactate Dehydrogenase C-Reactive Protein Total Protein Albumin Triglycerides Lipase Arterial Blood Glucose Arterial Blood Ionized Calcium Urine WBC (Auto) Coronavirus (PCR) SARS-CoV-2 IgG Ab Crossmatch 07/19/20 07/19/20 07/19/20 12:00 16:27 23:41 WBC RBC Hgb Hct MCV MCH MCHC RDW Lymph % (Auto) [place] % (Auto) Lymph # (Auto) [place] # (Auto) Baso # (Auto) Seg Neutrophils % Seg Neuts % (Manual) Lymphocytes % (Manual) Nucleated RBC % Seg Neutrophils # Seg Neutrophils # Man Lymphocytes # (Manual) Monocytes # (Manual) Eosinophils # (Manual) PT INR APTT D-Dimer Heparin Anti-Xa Level ABG pH POC ABG pCO2 POC ABG pO2 ABG pO2 ABG HCO3 ABG O2 Saturation ABG Base Excess ABG Hemoglobin ABG Oxyhemoglobin ABG Sodium ABG Potassium ABG Chloride ABG Glucose Oxyhemoglobin Carboxyhemoglobin Sodium Potassium Chloride Carbon Dioxide BUN Creatinine Glucose POC Glucose 201 H 205 H 106 H Lactic Acid Calcium Magnesium Ferritin Total Bilirubin Direct Bilirubin AST ALT Alkaline Phosphatase Lactate Dehydrogenase C-Reactive Protein Total Protein Albumin Triglycerides Lipase Arterial Blood Glucose Arterial Blood Ionized Calcium Urine WBC (Auto) Coronavirus (PCR) SARS-CoV-2 IgG Ab Crossmatch 07/20/20 07/20/20 07/20/20 05:28 11:18 17:30 WBC RBC Hgb Hct MCV MCH MCHC RDW Lymph % (Auto) [place] % (Auto) Lymph # (Auto) [place] # (Auto) Baso # (Auto) Seg Neutrophils % Seg Neuts % (Manual) Lymphocytes % (Manual) Nucleated RBC % Seg Neutrophils # Seg Neutrophils # Man Lymphocytes # (Manual) Monocytes # (Manual) Eosinophils # (Manual) PT INR APTT D-Dimer Heparin Anti-Xa Level ABG pH POC ABG pCO2 POC ABG pO2 ABG pO2 ABG HCO3 ABG O2 Saturation ABG Base Excess ABG Hemoglobin ABG Oxyhemoglobin ABG Sodium ABG Potassium ABG Chloride ABG Glucose Oxyhemoglobin Carboxyhemoglobin Sodium Potassium Chloride Carbon Dioxide BUN Creatinine Glucose POC Glucose 130 H 195 H 141 H Lactic Acid Calcium Magnesium Ferritin Total Bilirubin Direct Bilirubin AST ALT Alkaline Phosphatase Lactate Dehydrogenase C-Reactive Protein Total Protein Albumin Triglycerides Lipase Arterial Blood Glucose Arterial Blood Ionized Calcium Urine WBC (Auto) Coronavirus (PCR) SARS-CoV-2 IgG Ab Crossmatch 07/20/20 07/21/20 07/21/20 23:26 05:03 17:03 WBC RBC Hgb Hct MCV MCH MCHC RDW Lymph % (Auto) [place] % (Auto) Lymph # (Auto) [place] # (Auto) Baso # (Auto) Seg Neutrophils % Seg Neuts % (Manual) Lymphocytes % (Manual) Nucleated RBC % Seg Neutrophils # Seg Neutrophils # Man Lymphocytes # (Manual) Monocytes # (Manual) Eosinophils # (Manual) PT INR APTT D-Dimer Heparin Anti-Xa Level ABG pH POC ABG pCO2 POC ABG pO2 ABG pO2 ABG HCO3 ABG O2 Saturation ABG Base Excess ABG Hemoglobin ABG Oxyhemoglobin ABG Sodium ABG Potassium ABG Chloride ABG Glucose Oxyhemoglobin Carboxyhemoglobin Sodium Potassium Chloride Carbon Dioxide BUN Creatinine Glucose POC Glucose 116 H 142 H 181 H Lactic Acid Calcium Magnesium Ferritin Total Bilirubin Direct Bilirubin AST ALT Alkaline Phosphatase Lactate Dehydrogenase C-Reactive Protein Total Protein Albumin Triglycerides Lipase Arterial Blood Glucose Arterial Blood Ionized Calcium Urine WBC (Auto) Coronavirus (PCR) SARS-CoV-2 IgG Ab Crossmatch 07/21/20 07/22/20 07/22/20 23:51 06:09 11:40 WBC RBC Hgb Hct MCV MCH MCHC RDW Lymph % (Auto) [place] % (Auto) Lymph # (Auto) [place] # (Auto) Baso # (Auto) Seg Neutrophils % Seg Neuts % (Manual) Lymphocytes % (Manual) Nucleated RBC % Seg Neutrophils # Seg Neutrophils # Man Lymphocytes # (Manual) Monocytes # (Manual) Eosinophils # (Manual) PT INR APTT D-Dimer Heparin Anti-Xa Level ABG pH POC ABG pCO2 POC ABG pO2 ABG pO2 ABG HCO3 ABG O2 Saturation ABG Base Excess ABG Hemoglobin ABG Oxyhemoglobin ABG Sodium ABG Potassium ABG Chloride ABG Glucose Oxyhemoglobin Carboxyhemoglobin Sodium Potassium Chloride Carbon Dioxide BUN Creatinine Glucose POC Glucose 127 H 136 H 160 H Lactic Acid Calcium Magnesium Ferritin Total Bilirubin Direct Bilirubin AST ALT Alkaline Phosphatase Lactate Dehydrogenase C-Reactive Protein Total Protein Albumin Triglycerides Lipase Arterial Blood Glucose Arterial Blood Ionized Calcium Urine WBC (Auto) Coronavirus (PCR) SARS-CoV-2 IgG Ab Crossmatch 07/22/20 07/22/20 07/23/20 18:14 23:25 05:58 WBC 12.2 H RBC 3.44 L Hgb 10.9 L Hct 33.9 L MCV 99 H MCH MCHC RDW 16.9 H Lymph % (Auto) [place] % (Auto) 10.0 H Lymph # (Auto) [place] # (Auto) 1.2 H Baso # (Auto) Seg Neutrophils % Seg Neuts % (Manual) Lymphocytes % (Manual) Nucleated RBC % Seg Neutrophils # 8.3 H Seg Neutrophils # Man Lymphocytes # (Manual) Monocytes # (Manual) Eosinophils # (Manual) PT INR APTT D-Dimer Heparin Anti-Xa Level ABG pH POC ABG pCO2 POC ABG pO2 ABG pO2 ABG HCO3 ABG O2 Saturation ABG Base Excess ABG Hemoglobin ABG Oxyhemoglobin ABG Sodium ABG Potassium ABG Chloride ABG Glucose Oxyhemoglobin Carboxyhemoglobin Sodium Potassium Chloride Carbon Dioxide BUN Creatinine Glucose POC Glucose 189 H 164 H Lactic Acid Calcium Magnesium Ferritin Total Bilirubin Direct Bilirubin AST ALT Alkaline Phosphatase Lactate Dehydrogenase C-Reactive Protein Total Protein Albumin Triglycerides Lipase Arterial Blood Glucose Arterial Blood Ionized Calcium Urine WBC (Auto) Coronavirus (PCR) SARS-CoV-2 IgG Ab Crossmatch 07/23/20 07/23/20 07/23/20 05:58 06:02 12:14 WBC RBC Hgb Hct MCV MCH MCHC RDW Lymph % (Auto) [place] % (Auto) Lymph # (Auto) [place] # (Auto) Baso # (Auto) Seg Neutrophils % Seg Neuts % (Manual) Lymphocytes % (Manual) Nucleated RBC % Seg Neutrophils # Seg Neutrophils # Man Lymphocytes # (Manual) Monocytes # (Manual) Eosinophils # (Manual) PT INR APTT D-Dimer Heparin Anti-Xa Level ABG pH POC ABG pCO2 POC ABG pO2 ABG pO2 ABG HCO3 ABG O2 Saturation ABG Base Excess ABG Hemoglobin ABG Oxyhemoglobin ABG Sodium ABG Potassium ABG Chloride ABG Glucose Oxyhemoglobin Carboxyhemoglobin Sodium Potassium 2.9 L* Chloride 94.9 L Carbon Dioxide 33 H D BUN Creatinine 0.4 L Glucose 129 H POC Glucose 111 H 142 H Lactic Acid Calcium Magnesium Ferritin Total Bilirubin Direct Bilirubin AST ALT Alkaline Phosphatase Lactate Dehydrogenase C-Reactive Protein Total Protein Albumin 3.5 L Triglycerides Lipase Arterial Blood Glucose Arterial Blood Ionized Calcium Urine WBC (Auto) Coronavirus (PCR) SARS-CoV-2 IgG Ab Crossmatch 07/23/20 07/23/20 07/24/20 17:20 23:39 05:05 WBC 13.3 H RBC 3.40 L Hgb 10.8 L Hct 33.4 L MCV 98 H MCH MCHC RDW 16.7 H Lymph % (Auto) Hendricks % (Auto) 10.0 H Lymph # (Auto) Hendricks # (Auto) 1.3 H Baso # (Auto) Seg Neutrophils % Seg Neuts % (Manual) Lymphocytes % (Manual) Nucleated RBC % Seg Neutrophils # 9.0 H Seg Neutrophils # Man Lymphocytes # (Manual) Monocytes # (Manual) Eosinophils # (Manual) PT INR APTT D-Dimer Heparin Anti-Xa Level ABG pH POC ABG pCO2 POC ABG pO2 ABG pO2 ABG HCO3 ABG O2 Saturation ABG Base Excess ABG Hemoglobin ABG Oxyhemoglobin ABG Sodium ABG Potassium ABG Chloride ABG Glucose Oxyhemoglobin Carboxyhemoglobin Sodium Potassium Chloride Carbon Dioxide BUN Creatinine Glucose POC Glucose 150 H 120 H Lactic Acid Calcium Magnesium Ferritin Total Bilirubin Direct Bilirubin AST ALT Alkaline Phosphatase Lactate Dehydrogenase C-Reactive Protein Total Protein Albumin Triglycerides Lipase Arterial Blood Glucose Arterial Blood Ionized Calcium Urine WBC (Auto) Coronavirus (PCR) SARS-CoV-2 IgG Ab Crossmatch 07/24/20 07/24/20 07/24/20 05:05 05:39 11:30 WBC RBC Hgb Hct MCV MCH MCHC RDW Lymph % (Auto) Hendricks % (Auto) Lymph # (Auto) Hendricks # (Auto) Baso # (Auto) Seg Neutrophils % Seg Neuts % (Manual) Lymphocytes % (Manual) Nucleated RBC % Seg Neutrophils # Seg Neutrophils # Man Lymphocytes # (Manual) Monocytes # (Manual) Eosinophils # (Manual) PT INR APTT D-Dimer Heparin Anti-Xa Level ABG pH POC ABG pCO2 POC ABG pO2 ABG pO2 ABG HCO3 ABG O2 Saturation ABG Base Excess ABG Hemoglobin ABG Oxyhemoglobin ABG Sodium ABG Potassium ABG Chloride ABG Glucose Oxyhemoglobin Carboxyhemoglobin Sodium Potassium Chloride 97.4 L Carbon Dioxide BUN Creatinine 0.3 L Glucose 111 H POC Glucose 118 H 160 H Lactic Acid Calcium Magnesium Ferritin Total Bilirubin Direct Bilirubin AST ALT Alkaline Phosphatase Lactate Dehydrogenase C-Reactive Protein Total Protein Albumin Triglycerides Lipase Arterial Blood Glucose Arterial Blood Ionized Calcium Urine WBC (Auto) Coronavirus (PCR) SARS-CoV-2 IgG Ab Crossmatch 07/24/20 07/24/20 07/25/20 16:45 23:43 05:00 WBC RBC Hgb Hct MCV MCH MCHC RDW Lymph % (Auto) Hendricks % (Auto) Lymph # (Auto) Hendricks # (Auto) Baso # (Auto) Seg Neutrophils % Seg Neuts % (Manual) Lymphocytes % (Manual) Nucleated RBC % Seg Neutrophils # Seg Neutrophils # Man Lymphocytes # (Manual) Monocytes # (Manual) Eosinophils # (Manual) PT INR APTT D-Dimer Heparin Anti-Xa Level ABG pH POC ABG pCO2 POC ABG pO2 ABG pO2 ABG HCO3 ABG O2 Saturation ABG Base Excess ABG Hemoglobin ABG Oxyhemoglobin ABG Sodium ABG Potassium ABG Chloride ABG Glucose Oxyhemoglobin Carboxyhemoglobin Sodium Potassium Chloride Carbon Dioxide BUN Creatinine Glucose POC Glucose 181 H 122 H 114 H Lactic Acid Calcium Magnesium Ferritin Total Bilirubin Direct Bilirubin AST ALT Alkaline Phosphatase Lactate Dehydrogenase C-Reactive Protein Total Protein Albumin Triglycerides Lipase Arterial Blood Glucose Arterial Blood Ionized Calcium Urine WBC (Auto) Coronavirus (PCR) SARS-CoV-2 IgG Ab Crossmatch 07/25/20 07/25/20 07/25/20 11:44 16:44 23:41 WBC RBC Hgb Hct MCV MCH MCHC RDW Lymph % (Auto) [place]ricks % (Auto) Lymph # (Auto) [place]ricks # (Auto) Baso # (Auto) Seg Neutrophils % Seg Neuts % (Manual) Lymphocytes % (Manual) Nucleated RBC % Seg Neutrophils # Seg Neutrophils # Man Lymphocytes # (Manual) Monocytes # (Manual) Eosinophils # (Manual) PT INR APTT D-Dimer Heparin Anti-Xa Level ABG pH POC ABG pCO2 POC ABG pO2 ABG pO2 ABG HCO3 ABG O2 Saturation ABG Base Excess ABG Hemoglobin ABG Oxyhemoglobin ABG Sodium ABG Potassium ABG Chloride ABG Glucose Oxyhemoglobin Carboxyhemoglobin Sodium Potassium Chloride Carbon Dioxide BUN Creatinine Glucose POC Glucose 298 H 166 H 133 H Lactic Acid Calcium Magnesium Ferritin Total Bilirubin Direct Bilirubin AST ALT Alkaline Phosphatase Lactate Dehydrogenase C-Reactive Protein Total Protein Albumin Triglycerides Lipase Arterial Blood Glucose Arterial Blood Ionized Calcium Urine WBC (Auto) Coronavirus (PCR) SARS-CoV-2 IgG Ab Crossmatch 07/26/20 07/26/20 05:17 11:17 WBC RBC Hgb Hct MCV MCH MCHC RDW Lymph % (Auto) [place]ricks % (Auto) Lymph # (Auto) [place] # (Auto) Baso # (Auto) Seg Neutrophils % Seg Neuts % (Manual) Lymphocytes % (Manual) Nucleated RBC % Seg Neutrophils # Seg Neutrophils # Man Lymphocytes # (Manual) Monocytes # (Manual) Eosinophils # (Manual) PT INR APTT D-Dimer Heparin Anti-Xa Level ABG pH POC ABG pCO2 POC ABG pO2 ABG pO2 ABG HCO3 ABG O2 Saturation ABG Base Excess ABG Hemoglobin ABG Oxyhemoglobin ABG Sodium ABG Potassium ABG Chloride ABG Glucose Oxyhemoglobin Carboxyhemoglobin Sodium Potassium Chloride Carbon Dioxide BUN Creatinine Glucose POC Glucose 113 H 157 H Lactic Acid Calcium Magnesium Ferritin Total Bilirubin Direct Bilirubin AST ALT Alkaline Phosphatase Lactate Dehydrogenase C-Reactive Protein Total Protein Albumin Triglycerides Lipase Arterial Blood Glucose Arterial Blood Ionized Calcium Urine WBC (Auto) Coronavirus (PCR) SARS-CoV-2 IgG Ab Crossmatch Chest x-ray: report reviewed, image reviewed Additional Studies: CHEST 1 VIEW [id number] 07/24/20 INDICATION / CLINICAL INFORMATION: s/p removal of chest tube COMPARISON: 07/23/2020 FINDINGS: SUPPORT DEVICES: Right thoracostomy tube has been removed. HEART / MEDIASTINUM: Stable LUNGS / PLEURA: Bilateral interstitial infiltrates appear minimally worse. No pneumothorax. ADDITIONAL FINDINGS: No significant additional findings. Allied health notes reviewed: nursing
[2020-07-26] MEDS: ENOXAPARIN 80 MG/0.8 ML INJ SUB-Q SCH ×2 (16:15→21:38)
[2020-07-26] MEDS: ENOXAPARIN 30 MG/0.3 ML INJ SUB-Q SCH ×2 (16:15→21:38)
[2020-07-26] MEDS: PHENobarbital 32.4 MG TAB PO SCH ×2 (16:16→23:23)
[2020-07-26] MEDS: DOCUSATE SODIUM 100 MG/10 ML ORAL LIQD PO SCH ×3 (16:32→21:39)
--- NOTE | 2020-07-26 19:06 | Progress Note ---
Assessment and Plan Assessment and plan: Positive COVID-19 test; 05/10/2020 Negative COVID-19 test; 06/30/2020 --Acute hypoxemic respiratory failure;on high flow nasal cannula oxygen Status post extubation, high flow oxygen and BiPAP ,wean as tolerated, supportive care Pulmonary critical l care following --Pneumothorax status post right chest tube Chest tube removed yesterday 07/23/2020 Post removal chest x-ray no pneumothorax No acute findings, patient is requiring high flow oxygen Wean as tolerated --Severe hypokalemia; potassium 2.9/resolved Monitor electrolytes, adjust management as needed --Sinus tachycardia: Significantly improved --Severe COVID-19 bilateral pneumonia Coronavirus protocol: IV steroid therapy, completed remdesivir, isolation precautions, contact precautions, prone positioning while in bed, pulmonary toilet. ID following SARS CoV-2 IgG positive patient is NOT a candidate for convalescent plasma --Elevated D-dimers/hyper coag state; Empiric anticoagulation with full dose Lovenox Closely monitor --Pseudomonas bacteremia; ID following, Continue cefepime --Severe sepsis/septic shock, due to COVID 19 PNA cont pressors as needed -- Acute kidney injury (SEN) , likely vasomotor nephropathy Resolved, IV fluids, avoid nephrotoxins --Acute on chronic anemia Guaiac test positive, GI evaluation PPIs, Continue to monitor -- Elevated liver function tests Suspected secondary to alcoholic liver disease. Supportive care, alcohol cessation, patient counseled. --Colonic distention GI evaluated colonic distention resolved recommend stool softeners Serial abdominal x-rays Monitor electrolytes and replete -- DVT prophylaxis On therapeutic Lovenox Closely monitor the patient and adjust management as needed Chest tube removed Patient feels better no new complaints Patient is on 2 to 3 L nasal cannula oxygen DC planning per case management PT OT evaluation and recommendations Consults and recommendations noted and appreciated Patient is stable to be transferred out of ICU/IMCU to telemetry Brief history and hospital course; 50 YO Male with Obesity, ETOH Dependence presents to ED for evaluation. Patient states that he has experienced shortness of breath, generalized weakness, fatigue, malaise, body aches, decreased exercise tolerance over the past 5 days with persistently worsening symptoms over the same timeframe. EMS was notified and upon arrival the patient was found to be in distress with a pulse oximetry of 76% on room air as well as fever to 103 F. Patient was placed on supplemental oxygen and subsequently transported to [facility] for further care and evaluation. Patient seen and evaluated in the emergency department. All lab and imaging studies reviewed. Patient underwent chest x-ray and was found to have bilateral pneumonia. Patient also found to have a pulse oximetry of 86% on 4 L nasal cannula. Patient initiated on a high flow submental oxygen with improvement of pulse oximetry. Patient admitted to medical floor and initiated on pneumonia protocol as well as COVID-19 protocol. Patient also found to have acute kidney injury as well as elevated liver function test suspected secondary to alcohol dependence. Patient reports being diagnosed with coronavirus 2 days ago. No prior admission for review. 06/16/2020. Patient currently on mechanical ventilation with AC mode rate 30, tidal volume 500, FiO2 70% and PEEP of 16. Continue anticoagulation with Lovenox 110 milligrams subcu every 12 hours. Wean sedation of fentanyl/Versed as needed. Currently with IV steroids of Solu-Medrol 40 mg IV every 12 hours. Patient will likely need tracheostomy per pulmonary recommendations. Continue pressors to maintain MAP > 65. 06/17/2020. Patient currently on mechanical ventilation with AC mode rate 30, t idal volume 500, FiO2 65% and PEEP of 16. Continue anticoagulation with Lovenox 110 milligrams subcu every 12 hours. Wean sedation of fentanyl/Versed as needed. Currently with IV steroids of Solu-Medrol 40 mg IV every 12 hours. Patient will likely need tracheostomy per pulmonary recommendations. 06/18/2020. Patient currently on mechanical ventilation with AC mode rate 30, tidal volume 500, FiO2 70% and PEEP of 16. Continue Lovenox for anticoagulation and fentanyl/Versed for sedation. Wean steroids per pulmonary. CIWA protocol initiated for history of EtOH dependence 06/19/2020. Patient currently on mechanical ventilation with AC mode rate 30, tidal volume 500, FiO2 60% and PEEP of 16. Wean FiO2 as tolerated per protocol. Continue Lovenox for anticoagulation and fentanyl/Versed for sedation. Wean steroids per pulmonary. CIWA protocol initiated for history of EtOH dependence 06/20/2020. Patient currently on mechanical ventilation with AC mode rate 30, tidal volume 500, FiO2 60% and PEEP of 16. Wean FiO2 as tolerated, SBT per protocol. Continue Lovenox for anticoagulation and fentanyl/Versed for sedation. Wean steroids per pulmonary. Continue pressors to maintain MAP > 65 mmHg. Patient remains on ETT. Consider tracheostomy placement once oxygenation is better per pulmonary. CIWA protocol initiated for history of EtOH dependence. 06/21/2020. Patient with a small apical pneumothorax discovered yesterday. General surgery consulted and consider placing chest tube. Follow-up serial chest x-ray patient currently on mechanical ventilation with AC mode rate 30, tidal volume 500, FiO2 60% and PEEP of 16. Wean FiO2 as tolerated, SBT per protocol. Continue Lovenox for anticoagulation and fentanyl/Versed for sedation. Wean steroids per pulmonary. Continue pressors to maintain MAP > 65 mmHg. Patient remains on ETT. Consider tracheostomy placement once oxygenation is better per pulmonary. CIWA protocol initiated for history of EtOH dependence. 06/22. Status post right chest tube placement yesterday. Remains mechanically ventilated on pressors. Examination today shows slightly distended abdomen. KUB ordered. Awaiting stool guaiac. Plan to get a GI evaluation. 06/23. Has colonic distention on the x-ray. Discussed with GI-advised stool softeners for now and close monitoring. No indication for colonic decompression at this time. Guaiac test is positive. No emergent indication for endoscopy at this point as per GI. Continue to monitor hemoglobin. 06/24. Remains intubated. On pressors. GI following for positive guaiac stool and anemia, and colonic distention. 06/25. Repeat abdominal xray ordered. Remains on mechanical ventilation. 06/26. Abdominal xray - resolved colonic distension. Mechanically ventilated. 06/27. Plan for trach and PEG. 06/28: Awaiting trach and Peg. S\ome Bm REPORTED, will continue to monitor 06/29: Resume care, patient remains on ventilator support, waiting on trach and PEG placement. BM reported by the RN, continue to monitor. 06/30: Unable to wean off from vent, patient will need trach and PEG. Continue supportive care, tolerating tube feed. Monitor CBC and BMP 07/01: Continue mechanical ventilation, tube feeding as tolerated. Sedation as needed per mechanical ventilation protocol. Waiting on trach and PEG placement. 07/02: Continue current management, tube feeding, monitor CBC and BMP. Need trach and PEG-waiting on scheduling. Pulmonary critical care following. 07/03: wean off vent as tolerated. follow clinically. need trach and PEG 07/04: unable to wean. CT head ordered to assess for any changes but too unstable to do the test. need trach and PEG. 07/05: plan for trach/peg - GS following. off pressor - on midodrine. renal function stable. intubated, but alert and can follow minor commend. discussed with daughter by phone. 07/06/2020; Dr. Márquez discussed with patient's daughter about trach but the daughter needs time to think about it. Patient was intubated and alert, FiO2 40%. 07/07/2020; patient was intubated and alert, FiO2 40%. Patient was diaphoretic, tachycardic, and EKG was done which was abnormal for me. I called thermostatic controls supervisor Dr Louis saw the EKG and said it is normal EKG, and the findings are abnormal. 07/08/2020; no significant change, patient is intubated and alert. 12: Patient continues on current management. Pulmonary recommending trach and PEG awaiting patient's decision on this. Will check intermittent labs 07/11: Ordered CT still pending. Patient was agitated at night. Appears to have calmed down. Will repeat labs today. 07/12: Continue supportive care, awaiting CPAP trial. discussed with pulmonary. Obtain labs today. Trach and Peg planned 07/13: Continues to current management, PLAN FOR Trach and PEG on Sunday if patient is not able to liberated from the ventilator, Continue to monitor Fever curve and repeat Sepsis work up if persistent fever 07/14: Now extubated, continue to work up. 07/15: Clinical stable for transfer to [facility], still with fever and now showing bact ermia. Continue Abx per ID. monitor fever 07/16: Continue supportive care. MONITOR FEVER CURVE, Adjust antibiotics as tolerated 07/17: Chest tube remains in place. More lethargic, Requested BIPAP to bedside, Chest tube to be discontinued, Awaiting Pysch input. 07/18: Chest tube remains in place repeat chest x-ray shows persistent bilateral opacity with mild improvement. Continue nebulizer treatments. Hypokalemia also noted will replace. Pulmonary and surgical input noted 07/19: Patient is a 50-year-old male admitted with shortness of breath ended up on mechanical ventilation noted to have pneumothorax has a chest tube in place. Has been successfully extubated but remains with delirium secondary to medical condition and also mild to moderate respiratory distress on Venturi mask. Continue weaning attempts. Patient still with chest tube. Continue serial x- rays. Will discuss with case management about possible LTAC placement. Blood cultures are currently returning Pseudomonas species. ID is following. 07/20/2020; patient continues to feel better, high flow oxygen and BiPAP Chest tube in place, continue current management, pulmonary surgery following 07/21/2020:Patient remains on High flow o2 07/22/2020; patient remains on high flow oxygen 8 L 100% O2 sat 93% Case management checking for LTAC placement 07/23/2020; patient remains on high flow oxygen, wean oxygen as tolerated, severe hypokalemia Replenish per protocol monitor levels 07/24/2020; patient had chest tube removal yesterday 07/23/2019 and, post removal chest x-ray no pneumothorax no acute abnormalities Patient feels slightly better continues to require high flow oxygen Wean as tolerated, physical and occupational therapy, DC planning 07/26/2020; patient on 3 L nasal cannula oxygen, patient feels better The high probability of a clinically significant, sudden or life threatening deterioration of the [respiratory] system(s) required my full and direct attention, intervention and personal management. The aggregate critical care time was [35] minutes. This time is in addition to time spent performing reported procedures but includes the following: [x] Data Review and interpretation [x] Patient assessment and monitoring of vital signs [x] Documentation [x] Medication orders and management Patient is stable to be transferred to telemetry today History Interval history: I have seen and examined the patient at the bedside Patient's chart and medications reviewed Patient is off high flow oxygen Patient feels better on 2 L nasal cannula oxygen saturating well No new complaints Vital signs noted Hospitalist Physical - Constitutional Vitals: Temp Pulse Resp BP Pulse Ox 97.6 F 103 H 23 106/73 100 07/26/20 16:05 07/26/20 16:00 07/26/20 16:00 07/26/20 18:00 07/26/20 18:00 General appearance: Present: no acute distress, well-nourished - EENT Eyes: Present: PERRL, EOM intact - Neck Neck: Present: supple, normal ROM - Respiratory Respiratory effort: normal Respiratory: bilateral: diminished, negative: rales, rhonchi, wheezing - Cardiovascular Rhythm: regular Heart Sounds: Present: S1 & S2 - Extremities Extremities: no ischemia, No edema - Abdominal General gastrointestinal: soft, non-tender, non-distended, normal bowel sounds - Integumentary Integumentary: Present: clear, warm - Psychiatric Psychiatric: appropriate mood/affect, cooperative - Neurologic Neurologic: CNII-XII intact, moves all extremities HEART Score - HEART Score Troponin: Troponin T 0.015 ng/mL (0.00-0.029) 07/07/20 10:00 Results - Labs CBC & Chem 7: 07/24/20 05:05 07/24/20 05:05 Labs: Laboratory Last Values WBC 13.3 K/mm3 (4.5-11.0) H 07/24/20 05:05 RBC 3.40 M/mm3 (3.65-5.03) L 07/24/20 05:05 Hgb 10.8 gm/dl (11.8-15.2) L 07/24/20 05:05 Hct 33.4 % (35.5-45.6) L 07/24/20 05:05 MCV 98 fl (84-94) H 07/24/20 05:05 MCH 32 pg (28-32) 07/24/20 05:05 MCHC 32 % (32-34) 07/24/20 05:05 RDW 16.7 % (13.2-15.2) H 07/24/20 05:05 Plt Count 378 K/mm3 (140-440) 07/24/20 05:05 Lymph % (Auto) 19.6 % (13.4-35.0) 07/24/20 05:05 Jones % (Auto) 10.0 % (0.0-7.3) H 07/24/20 05:05 Eos % (Auto) 1.9 % (0.0-4.3) 07/24/20 05:05 Baso % (Auto) 0.6 % (0.0-1.8) 07/24/20 05:05 Lymph # (Auto) 2.6 K/mm3 (1.2-5.4) 07/24/20 05:05 Jones # (Auto) 1.3 K/mm3 (0.0-0.8) H 07/24/20 05:05 Eos # (Auto) 0.3 K/mm3 (0.0-0.4) 07/24/20 05:05 Baso # (Auto) 0.1 K/mm3 (0.0-0.1) 07/24/20 05:05 Add Manual Diff Complete 07/13/20 08:31 Total Counted 100 07/13/20 08:31 Seg Neutrophils % 67.9 % (40.0-70.0) 07/24/20 05:05 Seg Neuts % (Manual) 96.0 % (40.0-70.0) H 07/13/20 08:31 Band Neutrophils % 0 % 07/13/20 08:31 Lymphocytes % (Manual) 2.0 % (13.4-35.0) L 07/13/20 08:31 Reactive Lymphs % (Man) 0 % 07/13/20 08:31 Monocytes % (Manual) 2.0 % (0.0-7.3) 07/13/20 08:31 Eosinophils % (Manual) 0 % (0.0-4.3) 07/13/20 08:31 Basophils % (Manual) 0 % (0.0-1.8) 07/13/20 08:31 Metamyelocytes % 0 % 07/13/20 08:31 Myelocytes % 0 % 07/13/20 08:31 Promyelocytes % 0 % 07/13/20 08:31 Blast Cells % 0 % 07/13/20 08:31 Nucleated RBC % Not Reportable 07/13/20 08:31 Seg Neutrophils # 9.0 K/mm3 (1.8-7.7) H 07/24/20 05:05 Seg Neutrophils # Man 20.4 K/mm3 (1.8-7.7) H 07/13/20 08:31 Band Neutrophils # 0.0 K/mm3 07/13/20 08:31 Lymphocytes # (Manual) 0.4 K/mm3 (1.2-5.4) L 07/13/20 08:31 Abs React Lymphs (Man) 0.0 K/mm3 07/13/20 08:31 Monocytes # (Manual) 0.4 K/mm3 (0.0-0.8) 07/13/20 08:31 Eosinophils # (Manual) 0.0 K/mm3 (0.0-0.4) 07/13/20 08:31 Basophils # (Manual) 0.0 K/mm3 (0.0-0.1) 07/13/20 08:31 Metamyelocytes # 0.0 K/mm3 07/13/20 08:31 Myelocytes # 0.0 K/mm3 07/13/20 08:31 Promyelocytes # 0.0 K/mm3 07/13/20 08:31 Blast Cells # 0.0 K/mm3 07/13/20 08:31 WBC Morphology Not Reportable 07/13/20 08:31 Hypersegmented Neuts Not Reportable 07/13/20 08:31 Hyposegmented Neuts Not Reportable 07/13/20 08:31 Hypogranular Neuts Not Reportable 07/13/20 08:31 Smudge Cells Not Reportable 07/13/20 08:31 Toxic Granulation Not Reportable 07/13/20 08:31 Toxic Vacuolation Not Reportable 07/13/20 08:31 Dohle Bodies Not Reportable 07/13/20 08:31 Pelger-Huet Anomaly Not Reportable 07/13/20 08:31 Jason Rods Not Reportable 07/13/20 08:31 Platelet Estimate Consistent w auto 07/13/20 08:31 Clumped Platelets Not Reportable 07/13/20 08:31 Plt Clumps, EDTA Not Reportable 07/13/20 08:31 Large Platelets Not Reportable 07/13/20 08:31 Giant Platelets Not Reportable 07/13/20 08:31 Platelet Satelliting Not Reportable 07/13/20 08:31 Plt Morphology Comment Not Reportable 07/13/20 08:31 RBC Morphology Not Reportable 07/13/20 08:31 Dimorphic RBCs Not Reportable 07/13/20 08:31 Polychromasia Not Reportable 07/13/20 08:31 Hypochromasia Not Reportable 07/13/20 08:31 Poikilocytosis Not Reportable 07/13/20 08:31 Anisocytosis Not Reportable 07/13/20 08:31 Microcytosis Not Reportable 07/13/20 08:31 Macrocytosis Not Reportable 07/13/20 08:31 Spherocytes Not Reportable 07/13/20 08:31 Pappenheimer Bodies Not Reportable 07/13/20 08:31 Sickle Cells Not Reportable 07/13/20 08:31 Target Cells Not Reportable 07/13/20 08:31 Tear Drop Cells Not Reportable 07/13/20 08:31 Ovalocytes Not Reportable 07/13/20 08:31 Stomatocytes Few 07/13/20 08:31 Helmet Cells Not Reportable 07/13/20 08:31 Sinclair[place] Bodies Not Reportable 07/13/20 08:31 [place] Rings Not Reportable 07/13/20 08:31 [place] Cells Not Reportable 07/13/20 08:31 Bite Cells Not Reportable 07/13/20 08:31 Crenated Cell Not Reportable 07/13/20 08:31 Elliptocytes Not Reportable 07/13/20 08:31 Acanthocytes (Spur) Not Reportable 07/13/20 08:31 Rouleaux Not Reportable 07/13/20 08:31 Hemoglobin C Crystals Not Reportable 07/13/20 08:31 Schistocytes Not Reportable 07/13/20 08:31 Malaria parasites Not Reportable 07/13/20 08:31 Josue Bodies Not Reportable 07/13/20 08:31 Hem Pathologist Commnt No 07/13/20 08:31 PT 11.8 Sec. (12.2-14.9) L 06/22/20 14:29 INR 0.88 (0.87-1.13) 06/22/20 14:29 APTT 23.5 Sec. (24.2-36.6) L 06/22/20 14:29 D-Dimer 1887.82 ng/mlDDU (0-234) H 05/20/20 08:16 Heparin Anti-Xa Level 0.37 U.I./ml (0.3-0.7) 07/02/20 16:08 ABG pH 7.477 (7.320-7.450) H 07/13/20 13:52 POC ABG pCO2 54.4 mmHg (32.0-48.0) H 07/13/20 13:52 ABG pCO2 53.1 mm Hg 07/08/20 Unknown POC ABG pO2 126.8 mmHg (83-108) H 07/13/20 13:52 ABG pO2 75.3 mm Hg (80.0-90.0) L 07/08/20 Unknown POC ABG HCO3 39.3 07/13/20 13:52 ABG HCO3 34.3 mmol/L (20.0-26.0) H 07/08/20 Unknown ABG O2 Saturation 96.5 % (95.0-99.0) 07/08/20 Unknown ABG O2 Content 13.5 (0.0-44) 07/08/20 Unknown POC ABG Base Excess 13.8 07/13/20 13:52 ABG Base Excess 8.7 mmol/L (-2.0-3.0) H 07/08/20 Unknown ABG Hemoglobin 11.5 (12.0-17.5) L 07/13/20 13:52 ABG Oxyhemoglobin 97.7 (94-98) 07/13/20 13:52 ABG Carboxyhemoglobin 2.4 % (0.0-5.0) 07/08/20 Unknown ABG Methemoglobin 0 (0.0-1.5) 07/13/20 13:52 ABG Sodium 136.2 mmol/L (136.0-145.0) 07/13/20 13:52 ABG Potassium 3.2 mmol/L (3.40-4.50) L 07/13/20 13:52 ABG Chloride 92.0 mmol/L (98-107) L 07/13/20 13:52 ABG Glucose 169 mg/dL (65-95) H 07/13/20 13:52 Oxyhemoglobin 93.7 % (95.0-99.0) L 07/08/20 Unknown Carboxyhemoglobin 1.2 (0.5-1.5) 07/13/20 13:52 FiO2 45 07/13/20 13:52 Sodium 140 mmol/L (137-145) 07/24/20 05:05 Potassium 3.8 mmol/L (3.6-5.0) 07/24/20 05:05 Chloride 97.4 mmol/L (98-107) L 07/24/20 05:05 Carbon Dioxide 29 mmol/L (22-30) 07/24/20 05:05 Anion Gap 17 mmol/L 07/24/20 05:05 BUN 11 mg/dL (9-20) 07/24/20 05:05 Creatinine 0.3 mg/dL (0.8-1.3) L 07/24/20 05:05 Estimated GFR > 60 ml/min 07/24/20 05:05 BUN/Creatinine Ratio 37 % 07/24/20 05:05 Glucose 111 mg/dL (75-100) H 07/24/20 05:05 POC Glucose 154 mg/dL (70-105) H 07/26/20 18:07 Lactic Acid 0.80 mmol/L (0.7-2.0) 07/13/20 15:45 Calcium 9.2 mg/dL (8.4-10.2) 07/24/20 05:05 Phosphorus 3.10 mg/dL (2.5-4.5) 06/15/20 04:00 Magnesium 2.00 mg/dL (1.7-2.3) 07/24/20 05:05 Ferritin 1496.0 ng/mL (30.0-300.0) H 06/14/20 11:50 Total Bilirubin 0.20 mg/dL (0.1-1.2) 07/23/20 05:58 Direct Bilirubin 0.6 mg/dL (0-0.2) H 05/11/20 07:30 Indirect Bilirubin 0.9 mg/dL 05/11/20 07:30 AST 18 units/L (5-40) 07/23/20 05:58 ALT 55 units/L (7-56) 07/23/20 05:58 Alkaline Phosphatase 67 units/L (35-129) 07/23/20 05:58 Lactate Dehydrogenase 705 units/L (91-180) H 05/20/20 08:16 Troponin T 0.015 ng/mL (0.00-0.029) 07/07/20 10:00 C-Reactive Protein 3.10 mg/dL (0.00-1.30) H 05/20/20 08:16 Total Protein 6.4 g/dL (6.3-8.2) 07/23/20 05:58 Albumin 3.5 g/dL (3.9-5) L 07/23/20 05:58 Albumin/Globulin Ratio 1.2 % 07/23/20 05:58 Triglycerides 452 mg/dL (2-149) H 06/30/20 07:00 Lipase 86 units/L (13-60) H 06/29/20 09:36 Procalcitonin 2.15 ng/mL (<0.15) 07/15/20 05:31 Arterial Blood Glucose 169 mg/dL (65-95) H 07/13/20 13:52 Arterial Blood Ionized Calcium 4.8 mg/dL (4.6-5.3) 07/13/20 13:52 Urine Color Fauzia (Yellow) 05/10/20 Unknown Urine Turbidity Clear (Clear) 05/10/20 Unknown Urine pH 5.0 (5.0-7.0) 05/10/20 Unknown Ur Specific Adrian 1.019 (1.003-1.030) 05/10/20 Unknown Urine Protein 100 mg/dl mg/dL (Negative) 05/10/20 Unknown Urine Glucose (UA) Neg mg/dL (Negative) 05/10/20 Unknown Urine Ketones Neg mg/dL (Negative) 05/10/20 Unknown Urine Blood Lg (Negative) 05/10/20 Unknown Urine Nitrite Neg (Negative) 05/10/20 Unknown Urine Bilirubin Neg (Negative) 05/10/20 Unknown Urine Urobilinogen 2.0 mg/dL (<2.0) 05/10/20 Unknown Ur Leukocyte Esterase Neg (Negative) 05/10/20 Unknown Urine WBC (Auto) 11.0 /HPF (0.0-6.0) H 05/10/20 Unknown Urine RBC (Auto) 2.0 /HPF (0.0-6.0) 05/10/20 Unknown U Epithel Cells (Auto) 1.0 /HPF (0-13.0) 05/10/20 Unknown Urine Bacteria (Auto) 1+ /HPF (Negative) 05/10/20 Unknown Urine Mucus Few /HPF 05/10/20 Unknown Plasma/Serum Alcohol < 0.01 % (0-0.07) 05/09/20 14:20 Coronavirus (PCR) Negative (Negative) 06/30/20 10:28 Hepatitis A Ab Total Nonreactive (Nonreactive) 07/09/20 Unknown Hep B Core Total Ab Nonreactive (Nonreactive) 07/09/20 Unknown Hepatitis C RNA Quant See scanned result 07/09/20 Unknown SARS-CoV-2 IgG Ab Reactive (NonReactive) A 05/11/20 07:30 Blood Type B POSITIVE 06/21/20 14:18 Antibody Screen Negative 06/21/20 14:18 Crossmatch See Detail 06/21/20 14:18 - Diagnostic Impressions Diagnostic Impressions: Echocardiogram 11/12/20 13:02 Transthoracic Echocardiogram Indication: CHF BP: 97/73 Conclusions *The study quality is technically very difficult and limited. *The left ventricular chamber size, wall thickness and systolic function are within normal limits. There are no wall motion abnormalities observed. Ejection fraction is normal. *The estimated ejection fraction is 60-65%. *The pericardium appears normal. Findings Procedure Info: The study quality is technically difficult. Left Ventricle: The left ventricular chamber size, wall thickness and systolic function are within normal limits. There are no wall motion abnormalities observed. Ejection fraction is normal. The estimated ejection fraction is 60-65%. Abnormal left ventricular diastolic filling is observed, consistent with impaired relaxation. Left Atrium: The left atrium is normal in size with no visual thrombus identified. Right Ventricle: The right ventricle is not well visualized. Right Atrium: The right atrium is not well visualized. Aortic Valve: The aortic valve is trileaflet. The leaflets are thin with normal excursion. There is no aortic stenosis or regurgitation present. Mitral Valve: The mitral valve appears normal in structure and function. Tricuspid Valve: The tricuspid valve appears normal in structure and function. Unable to estimate the right ventricular systolic pressure. Pulmonic Valve: The pulmonic valve is not well visualized. There is no evidence of pulmonic regurgitation. There is no pulmonic stenosis. Pericardium: The pericardium appears normal. Pulmonary Artery: The main pulmonary artery is not well visualized. Venous: The inferior vena cava appears normal in size. Measurements Chambers 2D Name Value Normal Range IVSd (2D) 0.83 cm (0.6 - 1.1) LVPWd (2D) 0.83 cm (0.6 - 1.1) LVIDd (2D) 3.88 cm (3.7 - 5.6) LVIDs (2D) 2.46 cm (2 - 3.8) LV FS (2D) 36.52 % - EF Teichholz (2D) 66.97 % - Ao root diameter (2D) 3.47 cm (2 - 3.7) Volumes/Mass Name Value Normal Range LA ESV SP 4CH (A/L) 22.4 ml - LA ESV SP 2CH (A/L) 22.89 ml - LA ESV BP (A/L) 23.06 ml - LA ESV SP 4CH (MOD) 21.09 ml - LA ESV SP 2CH (MOD) 22.44 ml - Diastolic/Systolic Function Name Value Normal Range MV E-wave Vmax 0.48 m/sec - MV deceleration time 156.3 msec - MV A-wave Vmax 0.59 m/sec - MV E:A ratio 0.81 ratio - Aortic Valve Name Value Normal Range AV Vmax 0.97 m/sec - AV VTI 14.49 cm - AV peak gradient 3.73 mmHg - AV mean gradient 1.89 mmHg - LVOT diameter 2.09 cm - LVOT Vmax 0.72 m/sec - LVOT VTI 10.21 cm - LVOT peak gradient 2.05 mmHg - LVOT mean gradient 1.03 mmHg - SV LVOT 35.17 ml - INNA (continuity Vmax) 2.55 cm2 - INNA (continuity VTI) 2.43 cm2 - Tricuspid Valve Name Value Normal Range TV E-wave Vmax 0.37 m/sec - Pulmonic Valve/Qp:Qs Name Value Normal Range PV Vmax 0.72 m/sec - PV peak gradient 2.06 mmHg - RVOT Vmax 0.85 m/sec - RVOT VTI 9.89 cm - RVOT peak gradient 2.9 mmHg - PV acceleration time 72.31 msec - Cantor/IV: Voiding Method Condom Catheter IV Catheter Type [Right Wrist] INT / Saline Lock IV Catheter Type [Right Upper Peripheral IV arm] IV Catheter Type [Right CVL Internal Jugular] IV Catheter Type [Right Peripheral IV Forearm] IV Catheter Type [Left Forearm INT / Saline Lock ] IV Catheter Type [Left Wrist] INT / Saline Lock IV Catheter Type [Right Hand] INT / Saline Lock IV Catheter Type [Left Hand] INT / Saline Lock IV Catheter Type [Left Peripheral IV Antecubital] Active Medications - Current Medications Current Medications: Generic Name Dose Route Start Last Admin Trade Name Freq PRN Reason Stop Dose Admin Alprazolam 0.25 mg 05/20/20 17:53 07/26/20 09:37 Alprazolam 0.25 Mg Tab PO 0.25 mg Q8H PRN Administration Anxiety Lipase/Protease/Amylase 1 each 05/22/20 13:01 Lipase 10,500/Protease 25,000/Amylase 43,750 (Units) Dr Cap FEEDTUBE PRN PRN For Clogged Feeding Tube Bisacodyl 10 mg 07/14/20 11:00 Bisacodyl 10 Mg Rect Supp ND BID PRN Laxative Effect Docusate Sodium 100 mg 05/28/20 14:00 07/26/20 16:41 Docusate Sodium 100 Mg/10 Ml Oral Liqd PO Not Given BID DESIRE Enoxaparin Sodium 80 mg 07/07/20 23:00 07/26/20 16:15 Enoxaparin 80 Mg/0.8 Ml Inj SUB-Q 80 mg Q12HR DESIRE Administration Enoxaparin Sodium 30 mg 07/07/20 23:00 07/26/20 16:15 Enoxaparin 30 Mg/0.3 Ml Inj SUB-Q 30 mg Q12HR DESIRE Administration Folic Acid 1 mg 05/09/20 15:36 07/26/20 09:37 Folic Acid 1 Mg Tab PO 1 mg QDAY DESIRE Administration Guaifenesin 600 mg 07/19/20 23:00 07/26/20 10:19 Guaifenesin Er 600 Mg Tab PO 600 mg BID DESIRE Administration Hydrophilic Ointment 1 applic 05/21/20 20:33 Lip Therapy Vaseline TP Q2HR PRN Dry Lips Cefepime HCl 2 gm in 100 mls @ 200 mls/hr 07/14/20 21:00 07/26/20 16:14 Cefepime/Ns 2 Gm/100 Ml IV 07/28/20 13:29 100 mls/hr Q8H DESIRE Administration Protocol Insulin Human Lispro 0 unit 05/29/20 14:00 07/26/20 17:00 Insulin Lispro 100 Unit/Ml Vial 3 Ml SUB-Q 3 unit Q6H DESIRE Administration Protocol Lansoprazole 30 mg 06/28/20 10:00 07/26/20 09:37 Lansoprazole 30 Mg Solutab FEEDTUBE 30 mg QDAY DESIRE Administration Lorazepam 1 mg 07/04/20 01:10 07/18/20 11:57 Lorazepam 2 Mg/Ml Vial IV 1 mg Q1HR PRN Administration agitation Methylprednisolone Sodium Succinate 20 mg 07/15/20 10:00 07/26/20 10:14 Methylprednisolone Sod Succinate 40 Mg/1 Ml Inj IV 20 mg Q24HR DESIRE Administration Metoprolol Tartrate 5 mg 07/02/20 17:17 07/08/20 14:38 Metoprolol Tartrate 5 Mg/5 Ml Inj IV 5 mg Q6HR PRN Administration Tachyarrhythmias Metoprolol Tartrate 12.5 mg 07/17/20 12:00 07/26/20 10:17 Metoprolol Tartrate 25 Mg Tab PO 12.5 mg BID DESIRE Administration Midodrine 10 mg 06/30/20 16:00 07/26/20 16:15 Midodrine 5 Mg Tab PO 10 mg TID@0800,1200,1600 DSEIRE Administration Multi-Ingred Cream/Lotion/Oil/Oint 1 applic 05/21/20 20:33 Mineral Oil/Petrolatum, White Ophth Oint 3.5 Gm OU Q4HR PRN Dry Eye(s) Olanzapine 5 mg 07/17/20 22:00 07/25/20 22:02 Olanzapine 5 Mg Tab PO 5 mg QHS DESIRE Administration Phenobarbital 32.4 mg 07/04/20 22:00 07/26/20 16:16 Phenobarbital 32.4 Mg Tab PO 32.4 mg BID DESIRE Administration Quetiapine Fumarate 200 mg 07/16/20 10:00 07/26/20 09:37 Quetiapine 200 Mg Tab PO 200 mg QAM DESIRE Administration Senna 17.2 mg 07/14/20 11:00 Sennosides 8.6 Mg Tab PO BID PRN Laxative Effect Simple Syrup 15 ml 05/22/20 13:01 07/15/20 05:35 Simple Syrup 15 Ml FEEDTUBE 15 ml PRN PRN Administration Hypoglycemia Simple Syrup 30 ml 05/22/20 13:01 Simple Syrup 15 Ml FEEDTUBE PRN PRN Hypoglycemia Sodium Bicarbonate 325 mg 05/22/20 13:01 Sodium Bicarbonate 325 Mg Tab FEEDTUBE PRN PRN For Clogged Feeding Tube Sodium Chloride 10 ml 05/09/20 22:00 07/26/20 09:38 Sodium Chloride 0.9% 10 Ml Flush Syringe IV 10 ml BID DESIRE Administration Nutrition/Malnutrition Assess - Dietary Evaluation Nutrition/Malnutrition Findings: Nutrition Notes Start: 05/17/20 14:10 Freq: Status: Active Protocol: Document 07/23/20 14:39 CW (Rec: 07/23/20 14:49 CW [email or web address]) Co-Sign 07/23/20 14:39 LP Nutrition Notes Initial or Follow up Reassessment Current Diagnosis Acute Kidney Injury,Decubitus( Pressure Ulcer),Sepsis, Respiratory Failure Other Pertinent Diagnosis Bilat pneu, COVID-19 (+), EtOH dependence Current Diet Regular diet Labs/Tests K 2.9 BG 199 Pertinent Medications KCl 120 mEq Humalog solumedrol Height 6 ft Weight 107.5 kg [place] Body Weight (kg) 80.90 BMI 32.1 Weight Status Obese Subjective/Other Information FU for TF mauricio. Per chart, pt remains extubated with diet advancement. Per RN pt is consuming 100% PO without chewing or swallowing difficulties. Percent of energy/protein needs met: 100%/100% Burn Absent Trauma Absent GI Symptoms None Current % PO Good (75-100%) Minimum of two criteria No physical signs of malnutrition #2 Nutrition Diagnosis Increased nutrient needs ( specify in comment below) Diagnosis Progress(for reassessment Continues documentation) #1 Nutrition Diagnosis Inadequate oral intake As Evidenced by Signs and Symptoms Pt extubated and diet advanced Diagnosis Progress(for reassessment Improved documentation) Is patient on ventilator? No Is Patient Ambulatory and/or Out of Bed No REE-([facility]-confined to bed) 2365.212 Kcal/Kg value to use for calculation 16 Approximate Energy Requirements Using 1720 kcal/Kg Calculation Used for Recommendations Kcal/kg Additional Notes Protein: 134-161 g (1.25-1.5 g /kg) Fluid: 1 ml/kcal Nutrition Intervention Change Diet Order: Continue diet Nutrition Support: DC Goal #1 Meet at least 75% protein and energy needs via PO Anticipated Discharge Needs: Regular diet Follow-Up By: 07/30/20 Additional Comments FU for intakes
[2020-07-27] MEDS: INSULIN LISPRO 100 UNIT/ML VIAL 3 mL SUB-Q SCH ×4 (01:44→17:50)
[2020-07-27] MEDS: CEFEPIME/NS 2 GM/100 ML 2 GM/100 ML BAG IV SCH ×3 (05:14→22:38)
[2020-07-27] MEDS: MIDODRINE 5 MG TAB PO SCH ×4 (08:01→16:32)
--- NOTE | 2020-07-27 08:54 | Progress Note ---
Assessment and Plan Assessment and plan: Positive COVID-19 test; 05/10/2020 Negative COVID-19 test; 06/30/2020 --Acute hypoxemic respiratory failure; on high flow nasal cannula oxygen 15 L Status post extubation, high flow oxygen and BiPAP ,wean as tolerated, supportive care Pulmonary critical l care following --Pneumothorax status post right chest tube Chest tube removed yesterday 07/23/2020 Post removal chest x-ray no pneumothorax No acute findings, patient is requiring high flow oxygen Wean as tolerated --Severe hypokalemia; potassium 2.9/resolved Monitor electrolytes, adjust management as needed --Sinus tachycardia: Significantly improved --Severe COVID-19 bilateral pneumonia Coronavirus protocol: IV steroid therapy, completed remdesivir, isolation precautions, contact precautions, prone positioning while in bed, pulmonary toilet. ID following SARS CoV-2 IgG positive patient is NOT a candidate for convalescent plasma --Elevated D-dimers/hyper coag state; Empiric anticoagulation with full dose Lovenox Closely monitor --Pseudomonas bacteremia; ID following, Continue cefepime --Severe sepsis/septic shock, due to COVID 19 PNA cont pressors as needed -- Acute kidney injury (SEN) , likely vasomotor nephropathy Resolved, IV fluids, avoid nephrotoxins --Acute on chronic anemia Guaiac test positive, GI evaluation PPIs, Continue to monitor -- Elevated liver function tests Suspected secondary to alcoholic liver disease. Supportive care, alcohol cessation, patient counseled. --Colonic distention GI evaluated colonic distention resolved recommend stool softeners Serial abdominal x-rays Monitor electrolytes and replete -- DVT prophylaxis On therapeutic Lovenox Closely monitor the patient and adjust management as needed Chest tube removed Patient feels better no new complaints Patient is on 2 to 3 L nasal cannula oxygen DC planning per case management PT OT evaluation and recommendations Consults and recommendations noted and appreciated Patient is stable to be transferred out of ICU/IMCU to telemetry Brief history and hospital course; 50 YO Male with Obesity, ETOH Dependence presents to ED for evaluation. Patient states that he has experienced shortness of breath, generalized weakness, fatigue, malaise, body aches, decreased exercise tolerance over the past 5 days with persistently worsening symptoms over the same timeframe. EMS was notified and upon arrival the patient was found to be in distress with a pulse oximetry of 76% on room air as well as fever to 103 F. Patient was placed on supplemental oxygen and subsequently transported to [facility] for further care and evaluation. Patient seen and evaluated in the emergency department. All lab and imaging studies reviewed. Patient underwent chest x-ray and was found to have bilateral pneumonia. Patient also found to have a pulse oximetry of 86% on 4 L nasal cannula. Patient initiated on a high flow submental oxygen with improvement of pulse oximetry. Patient admitted to medical floor and initiated on pneumonia protocol as well as COVID-19 protocol. Patient also found to have acute kidney injury as well as elevated liver function test suspected secondary to alcohol dependence. Patient reports being diagnosed with coronavirus 2 days ago. No prior admission for review. 06/16/2020. Patient currently on mechanical ventilation with AC mode rate 30, tidal volume 500, FiO2 70% and PEEP of 16. Continue anticoagulation with Lovenox 110 milligrams subcu every 12 hours. Wean sedation of fentanyl/Versed as needed. Currently with IV steroids of Solu-Medrol 40 mg IV every 12 hours. Patient will likely need tracheostomy per pulmonary recommendations. Continue pressors to maintain MAP > 65. 06/17/2020. Patient currently on mechanical ventilation with AC mode rate 30, tidal volume 500, FiO2 65% and PEEP of 16. Continue anticoagulation with Lovenox 110 milligrams subcu every 12 hours. Wean sedation of fentanyl/Versed as needed. Currently with IV steroids of Solu-Medrol 40 mg IV every 12 hours. Patient will likely need tracheostomy per pulmonary recommendations. 06/18/2020. Patient currently on mechanical ventilation with AC mode rate 30, tidal volume 500, FiO2 70% and PEEP of 16. Continue Lovenox for anticoagulation and fentanyl/Versed for sedation. Wean steroids per pulmonary. CIWA protocol i nitiated for history of EtOH dependence 06/19/2020. Patient currently on mechanical ventilation with AC mode rate 30, tidal volume 500, FiO2 60% and PEEP of 16. Wean FiO2 as tolerated per protocol. Continue Lovenox for anticoagulation and fentanyl/Versed for sedation. Wean steroids per pulmonary. CIWA protocol initiated for history of EtOH dependence 06/20/2020. Patient currently on mechanical ventilation with AC mode rate 30, tidal volume 500, FiO2 60% and PEEP of 16. Wean FiO2 as tolerated, SBT per protocol. Continue Lovenox for anticoagulation and fentanyl/Versed for sedation. Wean steroids per pulmonary. Continue pressors to maintain MAP > 65 mmHg. Patient remains on ETT. Consider tracheostomy placement once oxygenation is better per pulmonary. CIWA protocol initiated for history of EtOH dependence. 06/21/2020. Patient with a small apical pneumothorax discovered yesterday. General surgery consulted and consider placing chest tube. Follow-up serial chest x-ray patient currently on mechanical ventilation with AC mode rate 30, tidal volume 500, FiO2 60% and PEEP of 16. Wean FiO2 as tolerated, SBT per protocol. Continue Lovenox for anticoagulation and fentanyl/Versed for sedation. Wean steroids per pulmonary. Continue pressors to maintain MAP > 65 mmHg. Patient remains on ETT. Consider tracheostomy placement once oxygenation is better per pulmonary. CIWA protocol initiated for history of EtOH dependence. 06/22. Status post right chest tube placement yesterday. Remains mechanically ventilated on pressors. Examination today shows slightly distended abdomen. KUB ordered. Awaiting stool guaiac. Plan to get a GI evaluation. 06/23. Has colonic distention on the x-ray. Discussed with GI-advised stool softeners for now and close monitoring. No indication for colonic decompression at this time. Guaiac test is positive. No emergent indication for endoscopy at this point as per GI. Continue to monitor hemoglobin. 06/24. Remains intubated. On pressors. GI following for positive guaiac stool and anemia, and colonic distention. 06/25. Repeat abdominal xray ordered. Remains on mechanical ventilation. 06/26. Abdominal xray - resolved colonic distension. Mechanically ventilated. 06/27. Plan for trach and PEG. 06/28: Awaiting trach and Peg. S\ome Bm REPORTED, will continue to monitor 06/29: Resume care, patient remains on ventilator support, waiting on trach and PEG placement. BM reported by the RN, continue to monitor. 06/30: Unable to wean off from vent, patient will need trach and PEG. Continue supportive care, tolerating tube feed. Monitor CBC and BMP 07/01: Continue mechanical ventilation, tube feeding as tolerated. Sedation as needed per mechanical ventilation protocol. Waiting on trach and PEG placement. 07/02: Continue current management, tube feeding, monitor CBC and BMP. Need trach and PEG-waiting on scheduling. Pulmonary critical care following. 07/03: wean off vent as tolerated. follow clinically. need trach and PEG 07/04: unable to wean. CT head ordered to assess for any changes but too unstabl e to do the test. need trach and PEG. 07/05: plan for trach/peg - GS following. off pressor - on midodrine. renal function stable. intubated, but alert and can follow minor commend. discussed with daughter by phone. 07/06/2020; Dr. Márquez discussed with patient's daughter about trach but the daughter needs time to think about it. Patient was intubated and alert, FiO2 40%. 07/07/2020; patient was intubated and alert, FiO2 40%. Patient was diaphoretic, tachycardic, and EKG was done which was abnormal for me. I called butter printer Dr Louis saw the EKG and said it is normal EKG, and the findings are abnormal. 07/08/2020; no significant change, patient is intubated and alert. 12: Patient continues on current management. Pulmonary recommending trach and PEG awaiting patient's decision on this. Will check intermittent labs 07/11: Ordered CT still pending. Patient was agitated at night. Appears to have calmed down. Will repeat labs today. 07/12: Continue supportive care, awaiting CPAP trial. discussed with pulmonary. Obtain labs today. Trach and Peg planned 07/13: Continues to current management, PLAN FOR Trach and PEG on Sunday if patient is not able to liberated from the ventilator, Continue to monitor Fever curve and repeat Sepsis work up if persistent fever 07/14: Now extubated, continue to work up. 07/15: Clinical stable for transfer to [facility], still with fever and now showing bactermia. Continue Abx per ID. monitor fever 07/16: Continue supportive care. MONITOR FEVER CURVE, Adjust antibiotics as tolerated 07/17: Chest tube remains in place. More lethargic, Requested BIPAP to bedside, Chest tube to be discontinued, Awaiting Pysch input. 07/18: Chest tube remains in place repeat chest x-ray shows persistent bilateral opacity with mild improvement. Continue nebulizer treatments. Hypokalemia also noted will replace. Pulmonary and surgical input noted 07/19: Patient is a 50-year-old male admitted with shortness of breath ended up on mechanical ventilation noted to have pneumothorax has a chest tube in place. Has been successfully extubated but remains with delirium secondary to medical condition and also mild to moderate respiratory distress on Venturi mask. Continue weaning attempts. Patient still with chest tube. Continue serial x- rays. Will discuss with case management about possible LTAC placement. Blood cultures are currently returning Pseudomonas species. ID is following. 07/20/2020; patient continues to feel better, high flow oxygen and BiPAP Chest tube in place, continue current management, pulmonary surgery following 07/21/2020:Patient remains on High flow o2 07/22/2020; patient remains on high flow oxygen 8 L 100% O2 sat 93% Case management checking for LTAC placement 07/23/2020; patient remains on high flow oxygen, wean oxygen as tolerated, severe hypokalemia Replenish per protocol monitor levels 07/24/2020; patient had chest tube removal yesterday 07/23/2019 and, post removal chest x-ray no pneumothorax no acute abnormalities Patient feels slightly better continues to require high flow oxygen Wean as tolerated, physical and occupational therapy, DC planning 07/26/2020; patient on 3 L nasal cannula oxygen, patient feels better 07/27/2020; patient was saturating well on 3 L of nasal cannula oxygen, however today patient is on high flow oxygen 15 L Complains of some congestion, wean oxygen levels to 3-5 as tolerated Discharge planning LTAC has refused patient,Possible home with home health versus placement when medically stable History Interval history: I have seen and examined the patient at the bedside Complains of some congestion Denies chest pain or shortness of breath Vital signs noted Patient is on high flow oxygen 15 L Yesterday patient was on nasal cannula oxygen 3 L Hospitalist Physical - Constitutional Vitals: Temp Pulse Resp BP Pulse Ox 98.0 F 109 H 18 122/87 96 07/27/20 07:16 07/27/20 07:16 07/27/20 07:16 07/27/20 07:16 07/27/20 07:16 General appearance: Present: no acute distress, well-nourished - EENT Eyes: Present: PERRL, EOM intact - Neck Neck: Present: supple, normal ROM - Respiratory Respiratory effort: normal Respiratory: bilateral: diminished, rhonchi, negative: rales, wheezing - Cardiovascular Rhythm: regular Heart Sounds: Present: S1 & S2 - Extremities Extremities: no ischemia, No edema - Abdominal General gastrointestinal: soft, non-tender, non-distended, normal bowel sounds - Integumentary Integumentary: Present: clear, warm - Psychiatric Psychiatric: appropriate mood/affect, cooperative - Neurologic Neurologic: moves all extremities HEART Score - HEART Score Troponin: Troponin T 0.015 ng/mL (0.00-0.029) 07/07/20 10:00 Results - Labs CBC & Chem 7: 07/27/20 08:26 07/27/20 08:26 Labs: Laboratory Last Values WBC 13.3 K/mm3 (4.5-11.0) H 07/24/20 05:05 RBC 3.40 M/mm3 (3.65-5.03) L 07/24/20 05:05 Hgb 10.8 gm/dl (11.8-15.2) L 07/24/20 05:05 Hct 33.4 % (35.5-45.6) L 07/24/20 05:05 MCV 98 fl (84-94) H 07/24/20 05:05 MCH 32 pg (28-32) 07/24/20 05:05 MCHC 32 % (32-34) 07/24/20 05:05 RDW 16.7 % (13.2-15.2) H 07/24/20 05:05 Plt Count 378 K/mm3 (140-440) 07/24/20 05:05 Lymph % (Auto) 19.6 % (13.4-35.0) 07/24/20 05:05 Brule % (Auto) 10.0 % (0.0-7.3) H 07/24/20 05:05 Eos % (Auto) 1.9 % (0.0-4.3) 07/24/20 05:05 Baso % (Auto) 0.6 % (0.0-1.8) 07/24/20 05:05 Lymph # (Auto) 2.6 K/mm3 (1.2-5.4) 07/24/20 05:05 Brule # (Auto) 1.3 K/mm3 (0.0-0.8) H 07/24/20 05:05 Eos # (Auto) 0.3 K/mm3 (0.0-0.4) 07/24/20 05:05 Baso # (Auto) 0.1 K/mm3 (0.0-0.1) 07/24/20 05:05 Add Manual Diff Complete 07/13/20 08:31 Total Counted 100 07/13/20 08:31 Seg Neutrophils % 67.9 % (40.0-70.0) 07/24/20 05:05 Seg Neuts % (Manual) 96.0 % (40.0-70.0) H 07/13/20 08:31 Band Neutrophils % 0 % 07/13/20 08:31 Lymphocytes % (Manual) 2.0 % (13.4-35.0) L 07/13/20 08:31 Reactive Lymphs % (Man) 0 % 07/13/20 08:31 Monocytes % (Manual) 2.0 % (0.0-7.3) 07/13/20 08:31 Eosinophils % (Manual) 0 % (0.0-4.3) 07/13/20 08:31 Basophils % (Manual) 0 % (0.0-1.8) 07/13/20 08:31 Metamyelocytes % 0 % 07/13/20 08:31 Myelocytes % 0 % 07/13/20 08:31 Promyelocytes % 0 % 07/13/20 08:31 Blast Cells % 0 % 07/13/20 08:31 Nucleated RBC % Not Reportable 07/13/20 08:31 Seg Neutrophils # 9.0 K/mm3 (1.8-7.7) H 07/24/20 05:05 Seg Neutrophils # Man 20.4 K/mm3 (1.8-7.7) H 07/13/20 08:31 Band Neutrophils # 0.0 K/mm3 07/13/20 08:31 Lymphocytes # (Manual) 0.4 K/mm3 (1.2-5.4) L 07/13/20 08:31 Abs React Lymphs (Man) 0.0 K/mm3 07/13/20 08:31 Monocytes # (Manual) 0.4 K/mm3 (0.0-0.8) 07/13/20 08:31 Eosinophils # (Manual) 0.0 K/mm3 (0.0-0.4) 07/13/20 08:31 Basophils # (Manual) 0.0 K/mm3 (0.0-0.1) 07/13/20 08:31 Metamyelocytes # 0.0 K/mm3 07/13/20 08:31 Myelocytes # 0.0 K/mm3 07/13/20 08:31 Promyelocytes # 0.0 K/mm3 07/13/20 08:31 Blast Cells # 0.0 K/mm3 07/13/20 08:31 WBC Morphology Not Reportable 07/13/20 08:31 Hypersegmented Neuts Not Reportable 07/13/20 08:31 Hyposegmented Neuts Not Reportable 07/13/20 08:31 Hypogranular Neuts Not Reportable 07/13/20 08:31 Smudge Cells Not Reportable 07/13/20 08:31 Toxic Granulation Not Reportable 07/13/20 08:31 Toxic Vacuolation Not Reportable 07/13/20 08:31 Dohle Bodies Not Reportable 07/13/20 08:31 Pelger-Huet Anomaly Not Reportable 07/13/20 08:31 Jason Rods Not Reportable 07/13/20 08:31 Platelet Estimate Consistent w auto 07/13/20 08:31 Clumped Platelets Not Reportable 07/13/20 08:31 Plt Clumps, EDTA Not Reportable 07/13/20 08:31 Large Platelets Not Reportable 07/13/20 08:31 Giant Platelets Not Reportable 07/13/20 08:31 Platelet Satelliting Not Reportable 07/13/20 08:31 Plt Morphology Comment Not Reportable 07/13/20 08:31 RBC Morphology Not Reportable 07/13/20 08:31 Dimorphic RBCs Not Reportable 07/13/20 08:31 Polychromasia Not Reportable 07/13/20 08:31 Hypochromasia Not Reportable 07/13/20 08:31 Poikilocytosis Not Reportable 07/13/20 08:31 Anisocytosis Not Reportable 07/13/20 08:31 Microcytosis Not Reportable 07/13/20 08:31 Macrocytosis Not Reportable 07/13/20 08:31 Spherocytes Not Reportable 07/13/20 08:31 Pappenheimer Bodies Not Reportable 07/13/20 08:31 Sickle Cells Not Reportable 07/13/20 08:31 Target Cells Not Reportable 07/13/20 08:31 Tear Drop Cells Not Reportable 07/13/20 08:31 Ovalocytes Not Reportable 07/13/20 08:31 Stomatocytes Few 07/13/20 08:31 Helmet Cells Not Reportable 07/13/20 08:31 [place] Bodies Not Reportable 07/13/20 08:31 [place] Rings Not Reportable 07/13/20 08:31 Izabella Cells Not Reportable 07/13/20 08:31 Bite Cells Not Reportable 07/13/20 08:31 Crenated Cell Not Reportable 07/13/20 08:31 Elliptocytes Not Reportable 07/13/20 08:31 Acanthocytes (Spur) Not Reportable 07/13/20 08:31 Rouleaux Not Reportable 07/13/20 08:31 Hemoglobin C Crystals Not Reportable 07/13/20 08:31 Schistocytes Not Reportable 07/13/20 08:31 Malaria parasites Not Reportable 07/13/20 08:31 Josue Bodies Not Reportable 07/13/20 08:31 Hem Pathologist Commnt No 07/13/20 08:31 PT 11.8 Sec. (12.2-14.9) L 06/22/20 14:29 INR 0.88 (0.87-1.13) 06/22/20 14:29 APTT 23.5 Sec. (24.2-36.6) L 06/22/20 14:29 D-Dimer 1887.82 ng/mlDDU (0-234) H 05/20/20 08:16 Heparin Anti-Xa Level 0.37 U.I./ml (0.3-0.7) 07/02/20 16:08 ABG pH 7.477 (7.320-7.450) H 07/13/20 13:52 POC ABG pCO2 54.4 mmHg (32.0-48.0) H 07/13/20 13:52 ABG pCO2 53.1 mm Hg 07/08/20 Unknown POC ABG pO2 126.8 mmHg (83-108) H 07/13/20 13:52 ABG pO2 75.3 mm Hg (80.0-90.0) L 07/08/20 Unknown POC ABG HCO3 39.3 07/13/20 13:52 ABG HCO3 34.3 mmol/L (20.0-26.0) H 07/08/20 Unknown ABG O2 Saturation 96.5 % (95.0-99.0) 07/08/20 Unknown ABG O2 Content 13.5 (0.0-44) 07/08/20 Unknown POC ABG Base Excess 13.8 07/13/20 13:52 ABG Base Excess 8.7 mmol/L (-2.0-3.0) H 07/08/20 Unknown ABG Hemoglobin 11.5 (12.0-17.5) L 07/13/20 13:52 ABG Oxyhemoglobin 97.7 (94-98) 07/13/20 13:52 ABG Carboxyhemoglobin 2.4 % (0.0-5.0) 07/08/20 Unknown ABG Methemoglobin 0 (0.0-1.5) 07/13/20 13:52 ABG Sodium 136.2 mmol/L (136.0-145.0) 07/13/20 13:52 ABG Potassium 3.2 mmol/L (3.40-4.50) L 07/13/20 13:52 ABG Chloride 92.0 mmol/L (98-107) L 07/13/20 13:52 ABG Glucose 169 mg/dL (65-95) H 07/13/20 13:52 Oxyhemoglobin 93.7 % (95.0-99.0) L 07/08/20 Unknown Carboxyhemoglobin 1.2 (0.5-1.5) 07/13/20 13:52 FiO2 45 07/13/20 13:52 Sodium 140 mmol/L (137-145) 07/24/20 05:05 Potassium 3.8 mmol/L (3.6-5.0) 07/24/20 05:05 Chloride 97.4 mmol/L (98-107) L 07/24/20 05:05 Carbon Dioxide 29 mmol/L (22-30) 07/24/20 05:05 Anion Gap 17 mmol/L 07/24/20 05:05 BUN 11 mg/dL (9-20) 07/24/20 05:05 Creatinine 0.3 mg/dL (0.8-1.3) L 07/24/20 05:05 Estimated GFR > 60 ml/min 07/24/20 05:05 BUN/Creatinine Ratio 37 % 07/24/20 05:05 Glucose 111 mg/dL (75-100) H 07/24/20 05:05 POC Glucose 105 mg/dL (70-105) 07/27/20 05:37 Lactic Acid 0.80 mmol/L (0.7-2.0) 07/13/20 15:45 Calcium 9.2 mg/dL (8.4-10.2) 07/24/20 05:05 Phosphorus 3.10 mg/dL (2.5-4.5) 06/15/20 04:00 Magnesium 2.00 mg/dL (1.7-2.3) 07/24/20 05:05 Ferritin 1496.0 ng/mL (30.0-300.0) H 06/14/20 11:50 Total Bilirubin 0.20 mg/dL (0.1-1.2) 07/23/20 05:58 Direct Bilirubin 0.6 mg/dL (0-0.2) H 05/11/20 07:30 Indirect Bilirubin 0.9 mg/dL 05/11/20 07:30 AST 18 units/L (5-40) 07/23/20 05:58 ALT 55 units/L (7-56) 07/23/20 05:58 Alkaline Phosphatase 67 units/L (35-129) 07/23/20 05:58 Lactate Dehydrogenase 705 units/L (91-180) H 05/20/20 08:16 Troponin T 0.015 ng/mL (0.00-0.029) 07/07/20 10:00 C-Reactive Protein 3.10 mg/dL (0.00-1.30) H 05/20/20 08:16 Total Protein 6.4 g/dL (6.3-8.2) 07/23/20 05:58 Albumin 3.5 g/dL (3.9-5) L 07/23/20 05:58 Albumin/Globulin Ratio 1.2 % 07/23/20 05:58 Triglycerides 452 mg/dL (2-149) H 06/30/20 07:00 Lipase 86 units/L (13-60) H 06/29/20 09:36 Procalcitonin 2.15 ng/mL (<0.15) 07/15/20 05:31 Arterial Blood Glucose 169 mg/dL (65-95) H 07/13/20 13:52 Arterial Blood Ionized Calcium 4.8 mg/dL (4.6-5.3) 07/13/20 13:52 Urine Color Fauzia (Yellow) 05/10/20 Unknown Urine Turbidity Clear (Clear) 05/10/20 Unknown Urine pH 5.0 (5.0-7.0) 05/10/20 Unknown Ur Specific [place] 1.019 (1.003-1.030) 05/10/20 Unknown Urine Protein 100 mg/dl mg/dL (Negative) 05/10/20 Unknown Urine Glucose (UA) Neg mg/dL (Negative) 05/10/20 Unknown Urine Ketones Neg mg/dL (Negative) 05/10/20 Unknown Urine Blood Lg (Negative) 05/10/20 Unknown Urine Nitrite Neg (Negative) 05/10/20 Unknown Urine Bilirubin Neg (Negative) 05/10/20 Unknown Urine Urobilinogen 2.0 mg/dL (<2.0) 05/10/20 Unknown Ur Leukocyte Esterase Neg (Negative) 05/10/20 Unknown Urine WBC (Auto) 11.0 /HPF (0.0-6.0) H 05/10/20 Unknown Urine RBC (Auto) 2.0 /HPF (0.0-6.0) 05/10/20 Unknown U Epithel Cells (Auto) 1.0 /HPF (0-13.0) 05/10/20 Unknown Urine Bacteria (Auto) 1+ /HPF (Negative) 05/10/20 Unknown Urine Mucus Few /HPF 05/10/20 Unknown Plasma/Serum Alcohol < 0.01 % (0-0.07) 05/09/20 14:20 Coronavirus (PCR) Negative (Negative) 06/30/20 10:28 Hepatitis A Ab Total Nonreactive (Nonreactive) 07/09/20 Unknown Hep B Core Total Ab Nonreactive (Nonreactive) 07/09/20 Unknown Hepatitis C RNA Quant See scanned result 07/09/20 Unknown SARS-CoV-2 IgG Ab Reactive (NonReactive) A 05/11/20 07:30 Blood Type B POSITIVE 06/21/20 14:18 Antibody Screen Negative 06/21/20 14:18 Crossmatch See Detail 06/21/20 14:18 - Diagnostic Impressions Diagnostic Impressions: Echocardiogram 05/20/20 13:02 Transthoracic Echocardiogram Indication: CHF BP: 97/73 Conclusions *The study quality is technically very difficult and limited. *The left ventricular chamber size, wall thickness and systolic function are within normal limits. There are no wall motion abnormalities observed. Ejection fraction is normal. *The estimated ejection fraction is 60-65%. *The pericardium appears normal. Findings Procedure Info: The study quality is technically difficult. Left Ventricle: The left ventricular chamber size, wall thickness and systolic function are within normal limits. There are no wall motion abnormalities observed. Ejection fraction is normal. The estimated ejection fraction is 60-65%. Abnormal left ventricular diastolic filling is observed, consistent with impaired relaxation. Left Atrium: The left atrium is normal in size with no visual thrombus identified. Right Ventricle: The right ventricle is not well visualized. Right Atrium: The right atrium is not well visualized. Aortic Valve: The aortic valve is trileaflet. The leaflets are thin with normal excursion. There is no aortic stenosis or regurgitation present. Mitral Valve: The mitral valve appears normal in structure and function. Tricuspid Valve: The tricuspid valve appears normal in structure and function. Unable to estimate the right ventricular systolic pressure. Pulmonic Valve: The pulmonic valve is not well visualized. There is no evidence of pulmonic regurgitation. There is no pulmonic stenosis. Pericardium: The pericardium appears normal. Pulmonary Artery: The main pulmonary artery is not well visualized. Venous: The inferior vena cava appears normal in size. Measurements Chambers 2D Name Value Normal Range IVSd (2D) 0.83 cm (0.6 - 1.1) LVPWd (2D) 0.83 cm (0.6 - 1.1) LVIDd (2D) 3.88 cm (3.7 - 5.6) LVIDs (2D) 2.46 cm (2 - 3.8) LV FS (2D) 36.52 % - EF Teichholz (2D) 66.97 % - Ao root diameter (2D) 3.47 cm (2 - 3.7) Volumes/Mass Name Value Normal Range LA ESV SP 4CH (A/L) 22.4 ml - LA ESV SP 2CH (A/L) 22.89 ml - LA ESV BP (A/L) 23.06 ml - LA ESV SP 4CH (MOD) 21.09 ml - LA ESV SP 2CH (MOD) 22.44 ml - Diastolic/Systolic Function Name Value Normal Range MV E-wave Vmax 0.48 m/sec - MV deceleration time 156.3 msec - MV A-wave Vmax 0.59 m/sec - MV E:A ratio 0.81 ratio - Aortic Valve Name Value Normal Range AV Vmax 0.97 m/sec - AV VTI 14.49 cm - AV peak gradient 3.73 mmHg - AV mean gradient 1.89 mmHg - LVOT diameter 2.09 cm - LVOT Vmax 0.72 m/sec - LVOT VTI 10.21 cm - LVOT peak gradient 2.05 mmHg - LVOT mean gradient 1.03 mmHg - SV LVOT 35.17 ml - INNA (continuity Vmax) 2.55 cm2 - INNA (continuity VTI) 2.43 cm2 - Tricuspid Valve Name Value Normal Range TV E-wave Vmax 0.37 m/sec - Pulmonic Valve/Qp:Qs Name Value Normal Range PV Vmax 0.72 m/sec - PV peak gradient 2.06 mmHg - RVOT Vmax 0.85 m/sec - RVOT VTI 9.89 cm - RVOT peak gradient 2.9 mmHg - PV acceleration time 72.31 msec - Cantor/IV: Voiding Method Condom Catheter IV Catheter Type [Right Wrist] INT / Saline Lock IV Catheter Type [Right Upper Peripheral IV arm] IV Catheter Type [Right CVL Internal Jugular] IV Catheter Type [Right Peripheral IV Forearm] IV Catheter Type [Left Forearm INT / Saline Lock ] IV Catheter Type [Left Wrist] INT / Saline Lock IV Catheter Type [Right Hand] INT / Saline Lock IV Catheter Type [Left Hand] INT / Saline Lock IV Catheter Type [Left Peripheral IV Antecubital] Active Medications - Current Medications Current Medications: Generic Name Dose Route Start Last Admin Trade Name Freq PRN Reason Stop Dose Admin Alprazolam 0.25 mg 05/20/20 17:53 07/26/20 09:37 Alprazolam 0.25 Mg Tab PO 0.25 mg Q8H PRN Administration Anxiety Lipase/Protease/Amylase 1 each 05/22/20 13:01 Lipase 10,500/Protease 25,000/Amylase 43,750 (Units) Dr Newell FEEDTUBE PRN PRN For Clogged Feeding Tube Bisacodyl 10 mg 07/14/20 11:00 Bisacodyl 10 Mg Rect Supp [place] BID PRN Laxative Effect Docusate Sodium 100 mg 05/28/20 14:00 07/26/20 21:39 Docusate Sodium 100 Mg/10 Ml Oral Liqd PO Not Given BID DESIRE Enoxaparin Sodium 80 mg 07/07/20 23:00 07/26/20 21:38 Enoxaparin 80 Mg/0.8 Ml Inj SUB-Q 80 mg Q12HR DESIRE Administration Enoxaparin Sodium 30 mg 07/07/20 23:00 07/26/20 21:38 Enoxaparin 30 Mg/0.3 Ml Inj SUB-Q 30 mg Q12HR DESIRE Administration Folic Acid 1 mg 05/09/20 15:36 07/26/20 09:37 Folic Acid 1 Mg Tab PO 1 mg QDAY DESIRE Administration Guaifenesin 600 mg 07/19/20 23:00 07/26/20 21:39 Guaifenesin Er 600 Mg Tab PO 600 mg BID DESIRE Administration Hydrophilic Ointment 1 applic 05/21/20 20:33 Lip Therapy Vaseline TP Q2HR PRN Dry Lips Cefepime HCl 2 gm in 100 mls @ 200 mls/hr 07/14/20 21:00 07/27/20 05:14 Cefepime/Ns 2 Gm/100 Ml IV 07/28/20 13:29 100 mls/hr Q8H [facility] Administration Protocol Insulin Human Lispro 0 unit 05/29/20 14:00 07/27/20 06:09 Insulin Lispro 100 Unit/Ml Vial 3 Ml SUB-Q Not Given Q6H [facility] Protocol Lansoprazole 30 mg 06/28/20 10:00 07/26/20 09:37 Lansoprazole 30 Mg Solutab FEEDTUBE 30 mg QDAY DESIRE Administration Lorazepam 1 mg 07/04/20 01:10 07/18/20 11:57 Lorazepam 2 Mg/Ml Vial IV 1 mg Q1HR PRN Administration agitation Methylprednisolone Sodium Succinate 20 mg 07/15/20 10:00 07/26/20 10:14 Methylprednisolone Sod Succinate 40 Mg/1 Ml Inj IV 20 mg Q24HR DESIRE Administration Metoprolol Tartrate 5 mg 07/02/20 17:17 07/08/20 14:38 Metoprolol Tartrate 5 Mg/5 Ml Inj IV 5 mg Q6HR PRN Administration Tachyarrhythmias Metoprolol Tartrate 12.5 mg 07/17/20 12:00 07/26/20 21:41 Metoprolol Tartrate 25 Mg Tab PO 12.5 mg BID DESIRE Administration Midodrine 10 mg 06/30/20 16:00 07/27/20 08:12 Midodrine 5 Mg Tab PO Not Given TID@0800,1200,1600 [facility] Multi-Ingred Cream/Lotion/Oil/Oint 1 applic 05/21/20 20:33 Mineral Oil/Petrolatum, White Ophth Oint 3.5 Gm OU Q4HR PRN Dry Eye(s) Olanzapine 5 mg 07/17/20 22:00 07/26/20 21:40 Olanzapine 5 Mg Tab PO 5 mg QHS DESIRE Administration Phenobarbital 32.4 mg 07/04/20 22:00 07/26/20 23:23 Phenobarbital 32.4 Mg Tab PO 32.4 mg BID DESIRE Administration Quetiapine Fumarate 200 mg 07/16/20 10:00 07/26/20 09:37 Quetiapine 200 Mg Tab PO 200 mg QAM DESIRE Administration Senna 17.2 mg 07/14/20 11:00 Sennosides 8.6 Mg Tab PO BID PRN Laxative Effect Nutrition/Malnutrition Assess - Dietary Evaluation Nutrition/Malnutrition Findings: Nutrition Notes Start: 05/17/20 14:10 Freq: Status: Active Protocol: Document 07/23/20 14:39 CW (Rec: 07/23/20 14:49 CW [email or web address]) Co-Sign 07/23/20 14:39 LP Nutrition Notes Initial or Follow up Reassessment Current Diagnosis Acute Kidney Injury,Decubitus( Pressure Ulcer),Sepsis, Respiratory Failure Other Pertinent Diagnosis Bilat pneu, COVID-19 (+), EtOH dependence Current Diet Regular diet Labs/Tests K 2.9 BG 199 Pertinent Medications KCl 120 mEq Humalog solumedrol Height 6 ft Weight 107.5 kg [place] Body Weight (kg) 80.90 BMI 32.1 Weight Status Obese Subjective/Other Information FU for TF mauricio. Per chart, pt remains extubated with diet advancement. Per RN pt is consuming 100% PO without chewing or swallowing difficulties. Percent of energy/protein needs met: 100%/100% Burn Absent Trauma Absent GI Symptoms None Current % PO Good (75-100%) Minimum of two criteria No physical signs of malnutrition #2 Nutrition Diagnosis Increased nutrient needs ( specify in comment below) Diagnosis Progress(for reassessment Continues documentation) #1 Nutrition Diagnosis Inadequate oral intake As Evidenced by Signs and Symptoms Pt extubated and diet advanced Diagnosis Progress(for reassessment Improved documentation) Is patient on ventilator? No Is Patient Ambulatory and/or Out of Bed No REE-([place]-[facility] Jeor-confined to bed) 2365.212 Kcal/Kg value to use for calculation 16 Approximate Energy Requirements Using 1720 kcal/Kg Calculation Used for Recommendations Kcal/kg Additional Notes Protein: 134-161 g (1.25-1.5 g /kg) Fluid: 1 ml/kcal Nutrition Intervention Change Diet Order: Continue diet Nutrition Support: DC Goal #1 Meet at least 75% protein and energy needs via PO Anticipated Discharge Needs: Regular diet Follow-Up By: 07/30/20 Additional Comments FU for intakes
[2020-07-27 08:59] LABS: Basophils # (Auto) 0.1 K/mm3 (0.0-0.1); Basophils % (Auto) 0.5 % (0.0-1.8); Eosinophils # (Auto) 0.3 K/mm3 (0.0-0.4); Eosinophils % (Auto) 2.5 % (0.0-4.3); Hematocrit 35.7 % (35.5-45.6); Hemoglobin 11.8 gm/dl (11.8-15.2); Lymphocytes # (Auto) 2.1 K/mm3 (1.2-5.4); Lymphocytes % (Auto) 19.5 % (13.4-35.0); Mean Corpuscular HGB Conc 33 % (32-34); Mean Corpuscular Volume 98 fl (84-94); Monocytes # (Auto) 1.1 K/mm3 (0.0-0.8); Monocytes % (Auto) 10.6 % (0.0-7.3); Platelet Count 354 K/mm3 (140-440); Red Blood Count 3.63 M/mm3 (3.65-5.03); Red Cell Distribution Width 17.5 % (13.2-15.2)
--- NOTE | 2020-07-27 09:02 | Progress Note ---
Subjective - Reason for Consult Consult date: 07/27/20 Reason for consult: delirium - Chief Complaint Chief complaint: The patient was seen today. He is awake and on bipap. He has been moved to the 4th floor. The patient is a/o x 3. He is calm and cooperative. He says he's "doing okay" when asked. The patient says he slept well. He denies SI/HI or hallucinations of any kind. MENTAL STATUS EXAMINATION General Appearance and Behavior: Age appropriate, good hygiene, wearing appropriate clothes, cooperative polite with questioning. Cooperation: engaged Psychomotor Behavior: Psychomotor normal Mood: alright Affect and affective range: congruent with mood Thought Process: logical Thought Content: within reality Speech: Low volume, Regular rate and rhythm, Intellectual Functioning: improved Suicidal Ideation: none Homicidal Ideation: none Impulse Control: Unimpaired Insight and Judgment: unimpaired Memory: memory improved Attention: alert and oriented Assessment and Plan (1) Delirium due to another medical condition (F05) Current Visit: Yes Status: Acute Treatment Continue current medications Risks, benefits and alternatives of medications discussed with the patient, questions answered and consent obtained from patient. PSYCHOTHERAPY: Supportive psychotherapy provided MEDICAL: Per primary team DELIRIUM PRECAUTIONS: Please re-orient patient frequently, keep lights on during the day, and minimize benzodiazepines and opiates as these medications could worsen patient's confusion. 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 Case discussed with Dr. Foster who agrees with current disposition Will continue to follow to monitor psych progress and med management. Thank you for the consult. Please contact with any questions and/or concerns. Mental Status Exam - Vital signs Last Vital Signs Temp 98.0 F 07/27/20 07:16 Pulse 109 H 07/27/20 07:16 Resp 18 07/27/20 07:16 BP 122/87 07/27/20 07:16 Pulse Ox 94 07/27/20 08:52
[2020-07-27 09:21] LABS: Blood Urea Nitrogen 9 mg/dL (9-20); Calcium 9.6 mg/dL (8.4-10.2); Hemolysis Index 4
[2020-07-27 09:36] LABS: BUN/Creatinine Ratio 23
[2020-07-27] MEDS: LANSOPRAZOLE 30 MG SOLUTAB FEEDTUBE SCH (10:31)
[2020-07-27] MEDS: METOPROLOL TARTRATE 25 MG TAB PO SCH ×2 (10:31→22:39)
[2020-07-27] MEDS: guaiFENesin ER 600 MG TAB PO SCH ×2 (10:31→22:39)
[2020-07-27] MEDS: PHENobarbital 32.4 MG TAB PO SCH ×2 (10:31→22:39)
[2020-07-27] MEDS: FOLIC ACID 1 MG TAB PO SCH (10:31)
[2020-07-27] MEDS: ENOXAPARIN 80 MG/0.8 ML INJ SUB-Q SCH ×2 (10:32→22:38)
[2020-07-27] MEDS: methylPREDNISolone Sod Succinate 40 MG/1 ML INJ IV SCH (10:32)
[2020-07-27] MEDS: ENOXAPARIN 30 MG/0.3 ML INJ SUB-Q SCH ×2 (10:33→22:39)
[2020-07-27] MEDS: DOCUSATE SODIUM 100 MG/10 ML ORAL LIQD PO SCH ×2 (10:44→22:39)
[2020-07-27] MEDS: QUEtiapine 200 MG TAB PO SCH (13:44)
[2020-07-28] MEDS: INSULIN LISPRO 100 UNIT/ML VIAL 3 mL SUB-Q SCH ×4 (00:25→17:41)
[2020-07-28] MEDS: CEFEPIME/NS 2 GM/100 ML 2 GM/100 ML BAG IV SCH ×2 (05:08→13:22)
--- NOTE | 2020-07-28 08:17 | Progress Note ---
Subjective - Reason for Consult Consult date: 07/28/20 Reason for consult: delirium - Chief Complaint Chief complaint: The patient was seen today. He is awake. The patient is a/o x 3. He is calm and cooperative. He says he's "fine" when asked. The patient says he slept well. He denies SI/HI or hallucinations of any kind. MENTAL STATUS EXAMINATION General Appearance and Behavior: Age appropriate, good hygiene, wearing appropri ate clothes, cooperative polite with questioning. Cooperation: engaged Psychomotor Behavior: Psychomotor normal Mood: alright Affect and affective range: congruent with mood Thought Process: logical Thought Content: within reality Speech: Low volume, Regular rate and rhythm, Intellectual Functioning: improved Suicidal Ideation: none Homicidal Ideation: none Impulse Control: Unimpaired Insight and Judgment: unimpaired Memory: memory improved Attention: alert and oriented Assessment and Plan (1) Delirium due to another medical condition (F05) Current Visit: Yes Status: Acute Treatment Continue current medications Risks, benefits and alternatives of medications discussed with the patient, questions answered and consent obtained from patient. PSYCHOTHERAPY: Supportive psychotherapy provided MEDICAL: Per primary team DELIRIUM PRECAUTIONS: Please re-orient patient frequently, keep lights on during the day, and minimize benzodiazepines and opiates as these medications could worsen patient's confusion. 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 Case discussed with Dr. Foster who agrees with current disposition Will continue to follow to monitor psych progress and med management. Thank you for the consult. Please contact with any questions and/or concerns. Mental Status Exam - Vital signs Last Vital Signs Temp 98.4 F 07/28/20 04:00 Pulse 104 H 07/28/20 04:00 Resp 18 07/28/20 04:00 BP 137/79 07/28/20 04:00 Pulse Ox 98 07/28/20 07:51
--- NOTE | 2020-07-28 11:38 | Progress Note ---
Assessment and Plan Assessment and plan: Positive COVID-19 test; 05/10/2020 Negative COVID-19 test; 06/30/2020 --Acute hypoxemic respiratory failure; on 10 L oxygen on high flow nasal cannula oxygen 15 L yesterday Continue supportive care pulmonary following --Pneumothorax status post right chest tube Chest tube removed 07/23/2020 Post removal chest x-ray no pneumothorax No acute findings, patient is requiring high flow oxygen Wean oxygen as tolerated --Severe hypokalemia; potassium 2.9/resolved Monitor electrolytes, adjust management as needed --Sinus tachycardia: Significantly improved --Severe COVID-19 bilateral pneumonia Coronavirus protocol: IV steroid therapy, completed remdesivir, isolation precautions, contact precautions, prone positioning while in bed, pulmonary toilet. ID following SARS CoV-2 IgG positive patient is NOT a candidate for convalescent plasma --Elevated D-dimers/hyper coag state; Empiric anticoagulation with full dose Lovenox Closely monitor --Pseudomonas bacteremia; ID following, Continue cefepime Last day today --Severe sepsis/septic shock, monitor off pressors Patient is on cefepime, last day -- Acute kidney injury (SEN) , likely vasomotor nephropathy Resolved, IV fluids, avoid nephrotoxins --Acute on chronic anemia Guaiac test positive, GI evaluation PPIs, Continue to monitor -- Elevated liver function tests Suspected secondary to alcoholic liver disease. Supportive care, alcohol cessation, patient counseled. --Colonic distention GI evaluated colonic distention resolved recommend stool softeners Serial abdominal x-rays Monitor electrolytes and replete -- DVT prophylaxis On therapeutic Lovenox Closely monitor the patient and adjust management as needed Chest tube removed Patient feels better no new complaints Patient is on 2 to 3 L nasal cannula oxygen DC planning per case management PT OT evaluation and recommendations Consults and recommendations noted and appreciated Continues to use 10 L of nasal cannula oxygen Wean oxygen as tolerated Brief history and hospital course; 50 YO Male with Obesity, ETOH Dependence presents to ED for evaluation. Patient states that he has experienced shortness of breath, generalized weakness, f atigue, malaise, body aches, decreased exercise tolerance over the past 5 days with persistently worsening symptoms over the same timeframe. EMS was notified and upon arrival the patient was found to be in distress with a pulse oximetry of 76% on room air as well as fever to 103 F. Patient was placed on supplemental oxygen and subsequently transported to [facility] for further care and evaluation. Patient seen and evaluated in the emergency department. All lab and imaging studies reviewed. Patient underwent chest x-ray and was found to have bilateral pneumonia. Patient also found to have a pulse oximetry of 86% on 4 L nasal cannula. Patient initiated on a high flow submental oxygen with imp rovement of pulse oximetry. Patient admitted to medical floor and initiated on pneumonia protocol as well as COVID-19 protocol. Patient also found to have acute kidney injury as well as elevated liver function test suspected secondary to alcohol dependence. Patient reports being diagnosed with coronavirus 2 days ago. No prior admission for review. 06/16/2020. Patient currently on mechanical ventilation with AC mode rate 30, tidal volume 500, FiO2 70% and PEEP of 16. Continue anticoagulation with Lovenox 110 milligrams subcu every 12 hours. Wean sedation of fentanyl/Versed as needed. Currently with IV steroids of Solu-Medrol 40 mg IV every 12 hours. Patient will likely need tracheostomy per pulmonary recommendations. Continue pressors to maintain MAP > 65. 06/17/2020. Patient currently on mechanical ventilation with AC mode rate 30, tidal volume 500, FiO2 65% and PEEP of 16. Continue anticoagulation with Lovenox 110 milligrams subcu every 12 hours. Wean sedation of fentanyl/Versed as needed. Currently with IV steroids of Solu-Medrol 40 mg IV every 12 hours. Patient will likely need tracheostomy per pulmonary recommendations. 06/18/2020. Patient currently on mechanical ventilation with AC mode rate 30, tidal volume 500, FiO2 70% and PEEP of 16. Continue Lovenox for anticoagulation and fentanyl/Versed for sedation. Wean steroids per pulmonary. CIWA protocol initiated for history of EtOH dependence 06/19/2020. Patient currently on mechanical ventilation with AC mode rate 30, tidal volume 500, FiO2 60% and PEEP of 16. Wean FiO2 as tolerated per protocol. Continue Lovenox for anticoagulation and fentanyl/Versed for sedation. Wean steroids per pulmonary. CIWA protocol initiated for history of EtOH dependence 06/20/2020. Patient currently on mechanical ventilation with AC mode rate 30, tidal volume 500, FiO2 60% and PEEP of 16. Wean FiO2 as tolerated, SBT per protocol. Continue Lovenox for anticoagulation and fentanyl/Versed for sedation. Wean steroids per pulmonary. Continue pressors to maintain MAP > 65 mmHg. Patient remains on ETT. Consider tracheostomy placement once oxygenation is better per pulmonary. CIWA protocol initiated for history of EtOH dependence. 06/21/2020. Patient with a small apical pneumothorax discovered yesterday. General surgery consulted and consider placing chest tube. Follow-up serial chest x-ray patient currently on mechanical ventilation with AC mode rate 30, tidal volume 500, FiO2 60% and PEEP of 16. Wean FiO2 as tolerated, SBT per protocol. Continue Lovenox for anticoagulation and fentanyl/Versed for sedation. Wean steroids per pulmonary. Continue pressors to maintain MAP > 65 mmHg. Patient remains on ETT. Consider tracheostomy placement once oxygenation is better per pulmonary. CIWA protocol initiated for history of EtOH dependenc e. 06/22. Status post right chest tube placement yesterday. Remains mechanically ventilated on pressors. Examination today shows slightly distended abdomen. KUB ordered. Awaiting stool guaiac. Plan to get a GI evaluation. 06/23. Has colonic distention on the x-ray. Discussed with GI-advised stool softeners for now and close monitoring. No indication for colonic decompression at this time. Guaiac test is positive. No emergent indication for endoscopy at this point as per GI. Continue to monitor hemoglobin. 06/24. Remains intubated. On pressors. GI following for positive guaiac stool and anemia, and colonic distention. 06/25. Repeat abdominal xray ordered. Remains on mechanical ventilation. 06/26. Abdominal xray - resolved colonic distension. Mechanically ventilated. 06/27. Plan for trach and PEG. 06/28: Awaiting trach and Peg. S\ome Bm REPORTED, will continue to monitor 06/29: Resume care, patient remains on ventilator support, waiting on trach and PEG placement. BM reported by the RN, continue to monitor. 06/30: Unable to wean off from vent, patient will need trach and PEG. Continue supportive care, tolerating tube feed. Monitor CBC and BMP 07/01: Continue mechanical ventilation, tube feeding as tolerated. Sedation as needed per mechanical ventilation protocol. Waiting on trach and PEG placement. 07/02: Continue current management, tube feeding, monitor CBC and BMP. Need trach and PEG-waiting on scheduling. Pulmonary critical care following. 07/03: wean off vent as tolerated. follow clinically. need trach and PEG 07/04: unable to wean. CT head ordered to assess for any changes but too unstable to do the test. need trach and PEG. 07/05: plan for trach/peg - GS following. off pressor - on midodrine. renal function stable. intubated, but alert and can follow minor commend. discussed with daughter by phone. 07/06/2020; Dr. Márquez discussed with patient's daughter about trach but the daughter needs time to think about it. Patient was intubated and alert, FiO2 40%. 07/07/2020; patient was intubated and alert, FiO2 40%. Patient was diaphoretic, tachycardic, and EKG was done which was abnormal for me. I called stoneworking belt sander Dr Louis saw the EKG and said it is normal EKG, and the findings are abnormal. 07/08/2020; no significant change, patient is intubated and alert. 1/2: Patient continues on current management. Pulmonary recommending trach and PEG awaiting patient's decision on this. Will check intermittent labs 07/11: Ordered CT still pending. Patient was agitated at night. Appears to have calmed down. Will repeat labs today. 07/12: Continue supportive care, awaiting CPAP trial. discussed with pulmonary. Obtain labs today. Trach and Peg planned 07/13: Continues to current management, PLAN FOR Trach and PEG on Sunday if patient is not able to liberated from the ventilator, Continue to monitor Fever curve and repeat Sepsis work up if persistent fever 07/14: Now extubated, continue to work up. 07/15: Clinical stable for transfer to [facility], still with fever and now showing bactermia. Continue Abx per ID. monitor fever 07/16: Continue supportive care. MONITOR FEVER CURVE, Adjust antibiotics as t olerated 07/17: Chest tube remains in place. More lethargic, Requested BIPAP to bedside, Chest tube to be discontinued, Awaiting Pysch input. 07/18: Chest tube remains in place repeat chest x-ray shows persistent bilateral opacity with mild improvement. Continue nebulizer treatments. Hypokalemia also noted will replace. Pulmonary and surgical input noted 07/19: Patient is a 50-year-old male admitted with shortness of breath ended up on mechanical ventilation noted to have pneumothorax has a chest tube in place. Has been successfully extubated but remains with delirium secondary to medical c ondition and also mild to moderate respiratory distress on Venturi mask. Continue weaning attempts. Patient still with chest tube. Continue serial x- rays. Will discuss with case management about possible LTAC placement. Blood cultures are currently returning Pseudomonas species. ID is following. 07/20/2020; patient continues to feel better, high flow oxygen and BiPAP Chest tube in place, continue current management, pulmonary surgery following 07/21/2020:Patient remains on High flow o2 07/22/2020; patient remains on high flow oxygen 8 L 100% O2 sat 93% Case management checking for LTAC placement 07/23/2020; patient remains on high flow oxygen, wean oxygen as tolerated, severe hypokalemia Replenish per protocol monitor levels 07/24/2020; patient had chest tube removal yesterday 07/23/2019 and, post removal chest x-ray no pneumothorax no acute abnormalities Patient feels slightly better continues to require high flow oxygen Wean as tolerated, physical and occupational therapy, DC planning 07/26/2020; patient on 3 L nasal cannula oxygen, patient feels better 07/27/2020; patient was saturating well on 3 L of nasal cannula oxygen, however today patient is on high flow oxygen 15 L Complains of some congestion, wean oxygen levels to 3-5 as tolerated Discharge planning LTAC has refused patient,Possible home with home health versus placement when medically stable 07/28/2020; continue to wean oxygen, patient is on 10 L, awaiting placement History Interval history: I have seen and examined the patient at the bedside Patient's chart and medications reviewed Patient feels slightly better On 10 L of oxygen Vital signs Hospitalist Physical - Constitutional Vitals: Temp Pulse Resp BP Pulse Ox 98.2 F 117 H 18 117/77 95 07/28/20 08:00 07/28/20 08:00 07/28/20 08:00 07/28/20 08:00 07/28/20 08:00 General appearance: Present: no acute distress, well-nourished, other (On 10 L oxygen) - EENT Eyes: Present: PERRL, EOM intact - Neck Neck: Present: supple, normal ROM - Respiratory Respiratory effort: normal Respiratory: bilateral: diminished, negative: rales, rhonchi, wheezing - Cardiovascular Rhythm: regular Heart Sounds: Present: S1 & S2 - Extremities Extremities: no ischemia, No edema - Abdominal General gastrointestinal: soft, non-tender, non-distended, normal bowel sounds - Integumentary Integumentary: Present: clear, warm - Psychiatric Psychiatric: appropriate mood/affect, cooperative - Neurologic Neurologic: moves all extremities HEART Score - HEART Score Troponin: Troponin T 0.015 ng/mL (0.00-0.029) 07/07/20 10:00 Results - Labs CBC & Chem 7: 07/27/20 08:26 07/27/20 08:26 Labs: Laboratory Last Values WBC 10.6 K/mm3 (4.5-11.0) 07/27/20 08:26 RBC 3.63 M/mm3 (3.65-5.03) L 07/27/20 08:26 Hgb 11.8 gm/dl (11.8-15.2) 07/27/20 08:26 Hct 35.7 % (35.5-45.6) 07/27/20 08:26 MCV 98 fl (84-94) H 07/27/20 08:26 MCH 32 pg (28-32) 07/27/20 08:26 MCHC 33 % (32-34) 07/27/20 08:26 RDW 17.5 % (13.2-15.2) H 07/27/20 08:26 Plt Count 354 K/mm3 (140-440) 07/27/20 08:26 Lymph % (Auto) 19.5 % (13.4-35.0) 07/27/20 08:26 [place] % (Auto) 10.6 % (0.0-7.3) H 07/27/20 08:26 Eos % (Auto) 2.5 % (0.0-4.3) 07/27/20 08:26 Baso % (Auto) 0.5 % (0.0-1.8) 07/27/20 08:26 Lymph # (Auto) 2.1 K/mm3 (1.2-5.4) 07/27/20 08:26 [place] # (Auto) 1.1 K/mm3 (0.0-0.8) H 07/27/20 08:26 Eos # (Auto) 0.3 K/mm3 (0.0-0.4) 07/27/20 08:26 Baso # (Auto) 0.1 K/mm3 (0.0-0.1) 07/27/20 08:26 Add Manual Diff Complete 07/13/20 08:31 Total Counted 100 07/13/20 08:31 Seg Neutrophils % 66.9 % (40.0-70.0) 07/27/20 08:26 Seg Neuts % (Manual) 96.0 % (40.0-70.0) H 07/13/20 08:31 Band Neutrophils % 0 % 07/13/20 08:31 Lymphocytes % (Manual) 2.0 % (13.4-35.0) L 07/13/20 08:31 Reactive Lymphs % (Man) 0 % 07/13/20 08:31 Monocytes % (Manual) 2.0 % (0.0-7.3) 07/13/20 08:31 Eosinophils % (Manual) 0 % (0.0-4.3) 07/13/20 08:31 Basophils % (Manual) 0 % (0.0-1.8) 07/13/20 08:31 Metamyelocytes % 0 % 07/13/20 08:31 Myelocytes % 0 % 07/13/20 08:31 Promyelocytes % 0 % 07/13/20 08:31 Blast Cells % 0 % 07/13/20 08:31 Nucleated RBC % Not Reportable 07/13/20 08:31 Seg Neutrophils # 7.1 K/mm3 (1.8-7.7) 07/27/20 08:26 Seg Neutrophils # Man 20.4 K/mm3 (1.8-7.7) H 07/13/20 08:31 Band Neutrophils # 0.0 K/mm3 07/13/20 08:31 Lymphocytes # (Manual) 0.4 K/mm3 (1.2-5.4) L 07/13/20 08:31 Abs React Lymphs (Man) 0.0 K/mm3 07/13/20 08:31 Monocytes # (Manual) 0.4 K/mm3 (0.0-0.8) 07/13/20 08:31 Eosinophils # (Manual) 0.0 K/mm3 (0.0-0.4) 07/13/20 08:31 Basophils # (Manual) 0.0 K/mm3 (0.0-0.1) 07/13/20 08:31 Metamyelocytes # 0.0 K/mm3 07/13/20 08:31 Myelocytes # 0.0 K/mm3 07/13/20 08:31 Promyelocytes # 0.0 K/mm3 07/13/20 08:31 Blast Cells # 0.0 K/mm3 07/13/20 08:31 WBC Morphology Not Reportable 07/13/20 08:31 Hypersegmented Neuts Not Reportable 07/13/20 08:31 Hyposegmented Neuts Not Reportable 07/13/20 08:31 Hypogranular Neuts Not Reportable 07/13/20 08:31 Smudge Cells Not Reportable 07/13/20 08:31 Toxic Granulation Not Reportable 07/13/20 08:31 Toxic Vacuolation Not Reportable 07/13/20 08:31 Dohle Bodies Not Reportable 07/13/20 08:31 Pelger-Huet Anomaly Not Reportable 07/13/20 08:31 Jason Rods Not Reportable 07/13/20 08:31 Platelet Estimate Consistent w auto 07/13/20 08:31 Clumped Platelets Not Reportable 07/13/20 08:31 Plt Clumps, EDTA Not Reportable 07/13/20 08:31 Large Platelets Not Reportable 07/13/20 08:31 Giant Platelets Not Reportable 07/13/20 08:31 Platelet Satelliting Not Reportable 07/13/20 08:31 Plt Morphology Comment Not Reportable 07/13/20 08:31 RBC Morphology Not Reportable 07/13/20 08:31 Dimorphic RBCs Not Reportable 07/13/20 08:31 Polychromasia Not Reportable 07/13/20 08:31 Hypochromasia Not Reportable 07/13/20 08:31 Poikilocytosis Not Reportable 07/13/20 08:31 Anisocytosis Not Reportable 07/13/20 08:31 Microcytosis Not Reportable 07/13/20 08:31 Macrocytosis Not Reportable 07/13/20 08:31 Spherocytes Not Reportable 07/13/20 08:31 Pappenheimer Bodies Not Reportable 07/13/20 08:31 Sickle Cells Not Reportable 07/13/20 08:31 Target Cells Not Reportable 07/13/20 08:31 Tear Drop Cells Not Reportable 07/13/20 08:31 Ovalocytes Not Reportable 07/13/20 08:31 Stomatocytes Few 07/13/20 08:31 Helmet Cells Not Reportable 07/13/20 08:31 Sinclair-[place] Bodies Not Reportable 07/13/20 08:31 [place] Rings Not Reportable 07/13/20 08:31 Izabella Cells Not Reportable 07/13/20 08:31 Bite Cells Not Reportable 07/13/20 08:31 Crenated Cell Not Reportable 07/13/20 08:31 Elliptocytes Not Reportable 07/13/20 08:31 Acanthocytes (Spur) Not Reportable 07/13/20 08:31 Rouleaux Not Reportable 07/13/20 08:31 Hemoglobin C Crystals Not Reportable 07/13/20 08:31 Schistocytes Not Reportable 07/13/20 08:31 Malaria parasites Not Reportable 07/13/20 08:31 Josue Bodies Not Reportable 07/13/20 08:31 Hem Pathologist Commnt No 07/13/20 08:31 PT 11.8 Sec. (12.2-14.9) L 06/22/20 14:29 INR 0.88 (0.87-1.13) 06/22/20 14:29 APTT 23.5 Sec. (24.2-36.6) L 06/22/20 14:29 D-Dimer 1887.82 ng/mlDDU (0-234) H 05/20/20 08:16 Heparin Anti-Xa Level 0.37 U.I./ml (0.3-0.7) 07/02/20 16:08 ABG pH 7.477 (7.320-7.450) H 07/13/20 13:52 POC ABG pCO2 54.4 mmHg (32.0-48.0) H 07/13/20 13:52 ABG pCO2 53.1 mm Hg 07/08/20 Unknown POC ABG pO2 126.8 mmHg (83-108) H 07/13/20 13:52 ABG pO2 75.3 mm Hg (80.0-90.0) L 07/08/20 Unknown POC ABG HCO3 39.3 07/13/20 13:52 ABG HCO3 34.3 mmol/L (20.0-26.0) H 07/08/20 Unknown ABG O2 Saturation 96.5 % (95.0-99.0) 07/08/20 Unknown ABG O2 Content 13.5 (0.0-44) 07/08/20 Unknown POC ABG Base Excess 13.8 07/13/20 13:52 ABG Base Excess 8.7 mmol/L (-2.0-3.0) H 07/08/20 Unknown ABG Hemoglobin 11.5 (12.0-17.5) L 07/13/20 13:52 ABG Oxyhemoglobin 97.7 (94-98) 07/13/20 13:52 ABG Carboxyhemoglobin 2.4 % (0.0-5.0) 07/08/20 Unknown ABG Methemoglobin 0 (0.0-1.5) 07/13/20 13:52 ABG Sodium 136.2 mmol/L (136.0-145.0) 07/13/20 13:52 ABG Potassium 3.2 mmol/L (3.40-4.50) L 07/13/20 13:52 ABG Chloride 92.0 mmol/L (98-107) L 07/13/20 13:52 ABG Glucose 169 mg/dL (65-95) H 07/13/20 13:52 Oxyhemoglobin 93.7 % (95.0-99.0) L 07/08/20 Unknown Carboxyhemoglobin 1.2 (0.5-1.5) 07/13/20 13:52 FiO2 45 07/13/20 13:52 Sodium 143 mmol/L (137-145) 07/27/20 08:26 Potassium 3.6 mmol/L (3.6-5.0) 07/27/20 08:26 Chloride 97.9 mmol/L (98-107) L 07/27/20 08:26 Carbon Dioxide 37 mmol/L (22-30) H D 07/27/20 08:26 Anion Gap 12 mmol/L 07/27/20 08:26 BUN 9 mg/dL (9-20) 07/27/20 08:26 Creatinine 0.4 mg/dL (0.8-1.3) L 07/27/20 08:26 Estimated GFR > 60 ml/min 07/27/20 08:26 BUN/Creatinine Ratio 23 % 07/27/20 08:26 Glucose 115 mg/dL (75-100) H 07/27/20 08:26 POC Glucose 100 mg/dL (70-105) 07/28/20 04:58 Lactic Acid 0.80 mmol/L (0.7-2.0) 07/13/20 15:45 Calcium 9.6 mg/dL (8.4-10.2) 07/27/20 08:26 Phosphorus 3.10 mg/dL (2.5-4.5) 06/15/20 04:00 Magnesium 2.00 mg/dL (1.7-2.3) 07/24/20 05:05 Ferritin 1496.0 ng/mL (30.0-300.0) H 06/14/20 11:50 Total Bilirubin 0.20 mg/dL (0.1-1.2) 07/23/20 05:58 Direct Bilirubin 0.6 mg/dL (0-0.2) H 05/11/20 07:30 Indirect Bilirubin 0.9 mg/dL 05/11/20 07:30 AST 18 units/L (5-40) 07/23/20 05:58 ALT 55 units/L (7-56) 07/23/20 05:58 Alkaline Phosphatase 67 units/L (35-129) 07/23/20 05:58 Lactate Dehydrogenase 705 units/L (91-180) H 05/20/20 08:16 Troponin T 0.015 ng/mL (0.00-0.029) 07/07/20 10:00 C-Reactive Protein 3.10 mg/dL (0.00-1.30) H 05/20/20 08:16 Total Protein 6.4 g/dL (6.3-8.2) 07/23/20 05:58 Albumin 3.5 g/dL (3.9-5) L 07/23/20 05:58 Albumin/Globulin Ratio 1.2 % 07/23/20 05:58 Triglycerides 452 mg/dL (2-149) H 06/30/20 07:00 Lipase 86 units/L (13-60) H 06/29/20 09:36 Procalcitonin 2.15 ng/mL (<0.15) 07/15/20 05:31 Arterial Blood Glucose 169 mg/dL (65-95) H 07/13/20 13:52 Arterial Blood Ionized Calcium 4.8 mg/dL (4.6-5.3) 07/13/20 13:52 Urine Color Fauzia (Yellow) 05/10/20 Unknown Urine Turbidity Clear (Clear) 05/10/20 Unknown Urine pH 5.0 (5.0-7.0) 05/10/20 Unknown Ur Specific [place] 1.019 (1.003-1.030) 05/10/20 Unknown Urine Protein 100 mg/dl mg/dL (Negative) 05/10/20 Unknown Urine Glucose (UA) Neg mg/dL (Negative) 05/10/20 Unknown Urine Ketones Neg mg/dL (Negative) 05/10/20 Unknown Urine Blood Lg (Negative) 05/10/20 Unknown Urine Nitrite Neg (Negative) 05/10/20 Unknown Urine Bilirubin Neg (Negative) 05/10/20 Unknown Urine Urobilinogen 2.0 mg/dL (<2.0) 05/10/20 Unknown Ur Leukocyte Esterase Neg (Negative) 05/10/20 Unknown Urine WBC (Auto) 11.0 /HPF (0.0-6.0) H 05/10/20 Unknown Urine RBC (Auto) 2.0 /HPF (0.0-6.0) 05/10/20 Unknown U Epithel Cells (Auto) 1.0 /HPF (0-13.0) 05/10/20 Unknown Urine Bacteria (Auto) 1+ /HPF (Negative) 05/10/20 Unknown Urine Mucus Few /HPF 05/10/20 Unknown Plasma/Serum Alcohol < 0.01 % (0-0.07) 05/09/20 14:20 Coronavirus (PCR) Negative (Negative) 06/30/20 10:28 Hepatitis A Ab Total Nonreactive (Nonreactive) 07/09/20 Unknown Hep B Core Total Ab Nonreactive (Nonreactive) 07/09/20 Unknown Hepatitis C RNA Quant See scanned result 07/09/20 Unknown SARS-CoV-2 IgG Ab Reactive (NonReactive) A 05/11/20 07:30 Blood Type B POSITIVE 06/21/20 14:18 Antibody Screen Negative 06/21/20 14:18 Crossmatch See Detail 06/21/20 14:18 Microbiology: Microbiology 07/13/20 Unknown Peripheral/Venous Blood Culture - Final Pseudomonas Aeruginosa 07/13/20 Unknown Peripheral/Venous Blood Culture - Final Pseudomonas Aeruginosa - Diagnostic Impressions Diagnostic Impressions: Echocardiogram 05/20/20 13:02 Transthoracic Echocardiogram Indication: CHF BP: 97/73 Conclusions *The study quality is technically very difficult and limited. *The left ventricular chamber size, wall thickness and systolic function are within normal limits. There are no wall motion abnormalities observed. Ejection fraction is normal. *The estimated ejection fraction is 60-65%. *The pericardium appears normal. Findings Procedure Info: The study quality is technically difficult. Left Ventricle: The left ventricular chamber size, wall thickness and systolic function are within normal limits. There are no wall motion abnormalities observed. Ejection fraction is normal. The estimated ejection fraction is 60-65%. Abnormal left ventricular diastolic filling is observed, consistent with impaired relaxation. Left Atrium: The left atrium is normal in size with no visual thrombus identified. Right Ventricle: The right ventricle is not well visualized. Right Atrium: The right atrium is not well visualized. Aortic Valve: The aortic valve is trileaflet. The leaflets are thin with normal excursion. There is no aortic stenosis or regurgitation present. Mitral Valve: The mitral valve appears normal in structure and function. Tricuspid Valve: The tricuspid valve appears normal in structure and function. Unable to estimate the right ventricular systolic pressure. Pulmonic Valve: The pulmonic valve is not well visualized. There is no evidence of pulmonic regurgitation. There is no pulmonic stenosis. Pericardium: The pericardium appears normal. Pulmonary Artery: The main pulmonary artery is not well visualized. Venous: The inferior vena cava appears normal in size. Measurements Chambers 2D Name Value Normal Range IVSd (2D) 0.83 cm (0.6 - 1.1) LVPWd (2D) 0.83 cm (0.6 - 1.1) LVIDd (2D) 3.88 cm (3.7 - 5.6) LVIDs (2D) 2.46 cm (2 - 3.8) LV FS (2D) 36.52 % - EF Teichholz (2D) 66.97 % - Ao root diameter (2D) 3.47 cm (2 - 3.7) Volumes/Mass Name Value Normal Range LA ESV SP 4CH (A/L) 22.4 ml - LA ESV SP 2CH (A/L) 22.89 ml - LA ESV BP (A/L) 23.06 ml - LA ESV SP 4CH (MOD) 21.09 ml - LA ESV SP 2CH (MOD) 22.44 ml - Diastolic/Systolic Function Name Value Normal Range MV E-wave Vmax 0.48 m/sec - MV deceleration time 156.3 msec - MV A-wave Vmax 0.59 m/sec - MV E:A ratio 0.81 ratio - Aortic Valve Name Value Normal Range AV Vmax 0.97 m/sec - AV VTI 14.49 cm - AV peak gradient 3.73 mmHg - AV mean gradient 1.89 mmHg - LVOT diameter 2.09 cm - LVOT Vmax 0.72 m/sec - LVOT VTI 10.21 cm - LVOT peak gradient 2.05 mmHg - LVOT mean gradient 1.03 mmHg - SV LVOT 35.17 ml - INNA (continuity Vmax) 2.55 cm2 - INNA (continuity VTI) 2.43 cm2 - Tricuspid Valve Name Value Normal Range TV E-wave Vmax 0.37 m/sec - Pulmonic Valve/Qp:Qs Name Value Normal Range PV Vmax 0.72 m/sec - PV peak gradient 2.06 mmHg - RVOT Vmax 0.85 m/sec - RVOT VTI 9.89 cm - RVOT peak gradient 2.9 mmHg - PV acceleration time 72.31 msec - Cantor/IV: Voiding Method Incontinent IV Catheter Type [Right Wrist] INT / Saline Lock IV Catheter Type [Right Upper Peripheral IV arm] IV Catheter Type [Right CVL Internal Jugular] IV Catheter Type [Right Peripheral IV Forearm] IV Catheter Type [Left Forearm INT / Saline Lock ] IV Catheter Type [Left Wrist] INT / Saline Lock IV Catheter Type [Right Hand] INT / Saline Lock IV Catheter Type [Left Hand] INT / Saline Lock IV Catheter Type [Left Peripheral IV Antecubital] Active Medications - Current Medications Current Medications: Generic Name Dose Route Start Last Admin Trade Name Freq PRN Reason Stop Dose Admin Alprazolam 0.25 mg 05/20/20 17:53 07/26/20 09:37 Alprazolam 0.25 Mg Tab PO 0.25 mg Q8H PRN Administration Anxiety Lipase/Protease/Amylase 1 each 05/22/20 13:01 Lipase 10,500/Protease 25,000/Amylase 43,750 (Units) Dr Cap FEEDTUBE PRN PRN For Clogged Feeding Tube Bisacodyl 10 mg 07/14/20 11:00 Bisacodyl 10 Mg Rect Supp NH BID PRN Laxative Effect Docusate Sodium 100 mg 05/28/20 14:00 07/27/20 22:39 Docusate Sodium 100 Mg/10 Ml Oral Liqd PO 100 mg BID DESIRE Administration Enoxaparin Sodium 80 mg 07/07/20 23:00 07/27/20 22:38 Enoxaparin 80 Mg/0.8 Ml Inj SUB-Q 80 mg Q12HR DESIRE Administration Enoxaparin Sodium 30 mg 07/07/20 23:00 07/27/20 22:39 Enoxaparin 30 Mg/0.3 Ml Inj SUB-Q 30 mg Q12HR DESIRE Administration Folic Acid 1 mg 05/09/20 15:36 07/27/20 10:31 Folic Acid 1 Mg Tab PO 1 mg QDAY DESIRE Administration Guaifenesin 600 mg 07/19/20 23:00 07/27/20 22:39 Guaifenesin Er 600 Mg Tab PO 600 mg BID DESIRE Administration Hydrophilic Ointment 1 applic 05/21/20 20:33 Lip Therapy Vaseline TP Q2HR PRN Dry Lips Cefepime HCl 2 gm in 100 mls @ 200 mls/hr 07/14/20 21:00 07/28/20 05:08 Cefepime/Ns 2 Gm/100 Ml IV 07/28/20 13:29 100 mls/hr Q8H DESIRE Administration Protocol Insulin Human Lispro 0 unit 05/29/20 14:00 07/28/20 05:24 Insulin Lispro 100 Unit/Ml Vial 3 Ml SUB-Q Not Given Q6H [facility] Protocol Lansoprazole 30 mg 06/28/20 10:00 07/27/20 10:31 Lansoprazole 30 Mg Solutab FEEDTUBE 30 mg QDAY DESIRE Administration Lorazepam 1 mg 07/04/20 01:10 07/18/20 11:57 Lorazepam 2 Mg/Ml Vial IV 1 mg Q1HR PRN Administration agitation Methylprednisolone Sodium Succinate 20 mg 07/15/20 10:00 07/27/20 10:32 Methylprednisolone Sod Succinate 40 Mg/1 Ml Inj IV 20 mg Q24HR DESIRE Administration Metoprolol Tartrate 5 mg 07/02/20 17:17 07/08/20 14:38 Metoprolol Tartrate 5 Mg/5 Ml Inj IV 5 mg Q6HR PRN Administration Tachyarrhythmias Metoprolol Tartrate 12.5 mg 07/17/20 12:00 07/27/20 22:39 Metoprolol Tartrate 25 Mg Tab PO 12.5 mg BID DESIRE Administration Midodrine 10 mg 06/30/20 16:00 07/27/20 16:32 Midodrine 5 Mg Tab PO Not Given TID@0800,1200,1600 [facility] Multi-Ingred Cream/Lotion/Oil/Oint 1 applic 05/21/20 20:33 Mineral Oil/Petrolatum, White Ophth Oint 3.5 Gm OU Q4HR PRN Dry Eye(s) Olanzapine 5 mg 07/17/20 22:00 07/27/20 22:40 Olanzapine 5 Mg Tab PO 5 mg QHS DESIRE Administration Phenobarbital 32.4 mg 07/04/20 22:00 07/27/20 22:39 Phenobarbital 32.4 Mg Tab PO 32.4 mg BID DESIRE Administration Quetiapine Fumarate 200 mg 07/16/20 10:00 07/27/20 13:44 Quetiapine 200 Mg Tab PO Not Given QAM DESIRE Senna 17.2 mg 07/14/20 11:00 Sennosides 8.6 Mg Tab PO BID PRN Laxative Effect Nutrition/Malnutrition Assess - Dietary Evaluation Nutrition/Malnutrition Findings: Nutrition Notes Start: 05/17/20 14:10 Freq: Status: Active Protocol: Document 07/23/20 14:39 CW (Rec: 07/23/20 14:49 CW [email or web address]) Co-Sign 07/23/20 14:39 LP Nutrition Notes Initial or Follow up Reassessment Current Diagnosis Acute Kidney Injury,Decubitus( Pressure Ulcer),Sepsis, Respiratory Failure Other Pertinent Diagnosis Bilat pneu, COVID-19 (+), EtOH dependence Current Diet Regular diet Labs/Tests K 2.9 BG 199 Pertinent Medications KCl 120 mEq Humalog solumedrol Height 6 ft Weight 107.5 kg Isaban Body Weight (kg) 80.90 BMI 32.1 Weight Status Obese Subjective/Other Information FU for TF mauricio. Per chart, pt remains extubated with diet advancement. Per RN pt is consuming 100% PO without chewing or swallowing difficulties. Percent of energy/protein needs met: 100%/100% Burn Absent Trauma Absent GI Symptoms None Current % PO Good (75-100%) Minimum of two criteria No physical signs of malnutrition #2 Nutrition Diagnosis Increased nutrient needs ( specify in comment below) Diagnosis Progress(for reassessment Continues documentation) #1 Nutrition Diagnosis Inadequate oral intake As Evidenced by Signs and Symptoms Pt extubated and diet advanced Diagnosis Progress(for reassessment Improved documentation) Is patient on ventilator? No Is Patient Ambulatory and/or Out of Bed No REE-([facility]-confined to bed) 2365.212 Kcal/Kg value to use for calculation 16 Approximate Energy Requirements Using 1720 kcal/Kg Calculation Used for Recommendations Kcal/kg Additional Notes Protein: 134-161 g (1.25-1.5 g /kg) Fluid: 1 ml/kcal Nutrition Intervention Change Diet Order: Continue diet Nutrition Support: DC Goal #1 Meet at least 75% protein and energy needs via PO Anticipated Discharge Needs: Regular diet Follow-Up By: 07/30/20 Additional Comments FU for intakes
[2020-07-28] MEDS: MIDODRINE 5 MG TAB PO SCH ×3 (12:55→17:41)
[2020-07-28] MEDS: DOCUSATE SODIUM 100 MG/10 ML ORAL LIQD PO SCH ×2 (12:56→21:22)
[2020-07-28] MEDS: ENOXAPARIN 80 MG/0.8 ML INJ SUB-Q SCH ×2 (12:56→21:21)
[2020-07-28] MEDS: ENOXAPARIN 30 MG/0.3 ML INJ SUB-Q SCH ×2 (12:57→21:22)
[2020-07-28] MEDS: FOLIC ACID 1 MG TAB PO SCH (12:58)
[2020-07-28] MEDS: METOPROLOL TARTRATE 25 MG TAB PO SCH ×2 (12:58→21:22)
[2020-07-28] MEDS: PHENobarbital 32.4 MG TAB PO SCH ×2 (12:59→21:22)
[2020-07-28] MEDS: guaiFENesin ER 600 MG TAB PO SCH ×2 (12:59→21:22)
[2020-07-28] MEDS: QUEtiapine 200 MG TAB PO SCH (13:00)
[2020-07-28] MEDS: LANSOPRAZOLE 30 MG SOLUTAB FEEDTUBE SCH (13:00)
[2020-07-28] MEDS: methylPREDNISolone Sod Succinate 40 MG/1 ML INJ IV SCH (13:01)
--- NOTE | 2020-07-28 14:33 | Progress Note ---
Assessment and Plan Patient Sleeping. Still on very high flow O2 litres 12 litres, and O2 saturation running 100%. Patient afebrile and has no leukocytosis. Patients D dimer 1887. 82. Ferritin 1496. LDH 705. C reactive protein 3.1 Chest xray 05/17/20 reported Persistent diffuse patchy bilateral airspace disease. Apparent interval worsening Repeat chest xray 07/19/20 reported Bilateral pulmonary opacities persist. No pneumothorax. Patient finished course of REMDESIVIR, ceftrioxane and zithromax . Chest xray done to day 07/21/20 reported Stable diffuse mild airspace disease bilaterally. Patient is on methylprednisone Cefepime,and S/C Lovenox therapeutic dose and Prevacid. - Patient Problems (1) Acute respiratory failure due to COVID-19 Current Visit: Yes Status: Acute Plan to address problem: Patient is on High flow o2 12 litres. Continue solumedrol. Convert aerosol treatments to metered dose inhalers Continue S/C Lovenox.Therapeutic dose. Continue prevacid. Patient finished course of REMDESIVIR, Ceftrioxana and zithromax. (2) Bilateral pneumonia Current Visit: Yes Status: Acute Plan to address problem: Patient was on cefepime. (3) Acute kidney injury (SEN) with acute tubular necrosis (ATN) Current Visit: Yes Status: Acute Plan to address problem: Management as per nephrology. (4) Alcohol dependence Current Visit: Yes Status: Acute Qualifiers: Substance use status: uncomplicated Qualified Code(s): F10.20 - Alcohol dependence, uncomplicated Plan to address problem: Management as per primary care. (5) Elevated liver function tests Current Visit: Yes Status: Acute Plan to address problem: Liver enzymes elevated either from his alcoholic abuse or from COVID 19 infection. Subjective Date of service: 07/28/20 Principal diagnosis: Ac hypoxemic resp failure; COVID-19; Severe Sepsis; Shaggy PNA; Alcohol Abuse Interval history: Patient Sleeping. Still on very high flow O2 litres 12 litres, and O2 saturation running 100%. Patient afebrile and has no leukocytosis. Patients D dimer 1887. 82. Ferritin 1496. LDH 705. C reactive protein 3.1 Chest xray 05/17/20 reported Persistent diffuse patchy bilateral airspace disease. Apparent interval worsening Repeat chest xray 07/19/20 reported Bilateral pulmonary opacities persist. No pneumothorax. Patient finished course of REMDESIVIR, ceftrioxane and zithromax . Chest xray done to day 07/21/20 reported Stable diffuse mild airspace disease bilaterally. Patient is on methylprednisone Cefepime,and S/C Lovenox therapeutic dose and Prevacid. Objective Vital Signs - 12hr 07/28/20 07/28/20 07/28/20 03:49 03:52 04:00 Temperature 98.8 F 98.4 F 98.4 F Pulse Rate 104 H 89 104 H Respiratory 17 16 18 Rate Blood Pressure 137/79 142/84 Blood Pressure 137/79 [Right] O2 Sat by Pulse 100 96 100 Oximetry 07/28/20 07/28/20 07/28/20 07:51 08:00 10:00 Temperature 98.2 F Pulse Rate 117 H 116 H Respiratory 18 Rate Blood Pressure 117/77 Blood Pressure [Right] O2 Sat by Pulse 98 95 Oximetry 07/28/20 11:24 Temperature 98.7 F Pulse Rate 123 H Respiratory 18 Rate Blood Pressure 114/79 Blood Pressure [Right] O2 Sat by Pulse 100 Oximetry Constitutional: no acute distress, asleep, other (middle aged obese male with mildly increased respiratory effort at rest ) Eyes: non-icteric ENT: oropharynx moist, other (extubated) Neck: supple, no JVD Effort: mildly labored Ascultation: Bilateral: diminished breath sounds, rhonchi (scant), other (r. chest tube) Percussion: Bilateral: not dull Cardiovascular: regular rate and rhythm, other (No R/M) Gastrointestinal: normoactive bowel sounds, soft, non-tender, non-distended (protuberant) Integumentary: normal Extremities: no cyanosis, no edema, pulses normal, no ischemia or petechiae Neurologic: non-focal exam (non focal grossly; weak), pupils equal and round, CN II-XII normal, motor strength normal and (weak ) Psychiatric: mood appropriate, affect normal CBC and BMP: 07/27/20 08:26 07/27/20 08:26 ABG, PT/INR, D-dimer: ABG ABG pH 7.477 (7.320-7.450) H 07/13/20 13:52 POC ABG pCO2 54.4 mmHg (32.0-48.0) H 07/13/20 13:52 ABG pCO2 53.1 mm Hg 07/08/20 Unknown POC ABG pO2 126.8 mmHg (83-108) H 07/13/20 13:52 ABG pO2 75.3 mm Hg (80.0-90.0) L 07/08/20 Unknown POC ABG HCO3 39.3 07/13/20 13:52 ABG O2 Saturation 96.5 % (95.0-99.0) 07/08/20 Unknown PT/INR, D-dimer PT 11.8 Sec. (12.2-14.9) L 06/22/20 14:29 INR 0.88 (0.87-1.13) 06/22/20 14:29 D-Dimer 1887.82 ng/mlDDU (0-234) H 05/20/20 08:16 Abnormal lab findings: Abnormal Labs 05/09/20 05/09/20 05/09/20 12:59 12:59 12:59 WBC 11.8 H RBC Hgb Hct MCV 96 H MCH 34 H MCHC 35 H RDW Lymph % (Auto) 6.9 L [place] % (Auto) Lymph # (Auto) 0.8 L [place] # (Auto) Baso # (Auto) Seg Neutrophils % 87.5 H Seg Neuts % (Manual) Lymphocytes % (Manual) Nucleated RBC % Seg Neutrophils # 10.3 H Seg Neutrophils # Man Lymphocytes # (Manual) Monocytes # (Manual) Eosinophils # (Manual) PT INR APTT D-Dimer Heparin Anti-Xa Level ABG pH POC ABG pCO2 POC ABG pO2 ABG pO2 ABG HCO3 ABG O2 Saturation ABG Base Excess ABG Hemoglobin ABG Oxyhemoglobin ABG Sodium ABG Potassium ABG Chloride ABG Glucose Oxyhemoglobin Carboxyhemoglobin Sodium 130 L Potassium 3.5 L Chloride 86.4 L Carbon Dioxide BUN 33 H Creatinine 2.3 H Glucose 156 H POC Glucose Lactic Acid Calcium Magnesium Ferritin Total Bilirubin 3.40 H Direct Bilirubin 1.7 H AST 385 H ALT 134 H Alkaline Phosphatase Lactate Dehydrogenase C-Reactive Protein Total Protein Albumin 3.0 L Triglycerides Lipase Arterial Blood Glucose Arterial Blood Ionized Calcium Urine WBC (Auto) Coronavirus (PCR) SARS-CoV-2 IgG Ab Crossmatch 05/09/20 05/09/20 05/09/20 12:59 12:59 12:59 WBC RBC Hgb Hct MCV MCH MCHC RDW Lymph % (Auto) [place] % (Auto) Lymph # (Auto) [place] # (Auto) Baso # (Auto) Seg Neutrophils % Seg Neuts % (Manual) Lymphocytes % (Manual) Nucleated RBC % Seg Neutrophils # Seg Neutrophils # Man Lymphocytes # (Manual) Monocytes # (Manual) Eosinophils # (Manual) PT INR APTT D-Dimer 3242.51 H Heparin Anti-Xa Level ABG pH POC ABG pCO2 POC ABG pO2 ABG pO2 ABG HCO3 ABG O2 Saturation ABG Base Excess ABG Hemoglobin ABG Oxyhemoglobin ABG Sodium ABG Potassium ABG Chloride ABG Glucose Oxyhemoglobin Carboxyhemoglobin Sodium Potassium Chloride Carbon Dioxide BUN Creatinine Glucose 158 H POC Glucose Lactic Acid 3.50 H* Calcium Magnesium Ferritin Total Bilirubin Direct Bilirubin AST ALT Alkaline Phosphatase Lactate Dehydrogenase 2166 H C-Reactive Protein 39.00 H Total Protein Albumin Triglycerides Lipase Arterial Blood Glucose Arterial Blood Ionized Calcium Urine WBC (Auto) Coronavirus (PCR) SARS-CoV-2 IgG Ab Crossmatch 05/09/20 05/09/20 05/09/20 12:59 14:20 14:20 WBC RBC Hgb Hct MCV MCH MCHC RDW Lymph % (Auto) [place] % (Auto) Lymph # (Auto) [place] # (Auto) Baso # (Auto) Seg Neutrophils % Seg Neuts % (Manual) Lymphocytes % (Manual) Nucleated RBC % Seg Neutrophils # Seg Neutrophils # Man Lymphocytes # (Manual) Monocytes # (Manual) Eosinophils # (Manual) PT INR APTT D-Dimer 2861.78 H Heparin Anti-Xa Level ABG pH POC ABG pCO2 POC ABG pO2 ABG pO2 ABG HCO3 ABG O2 Saturation ABG Base Excess ABG Hemoglobin ABG Oxyhemoglobin ABG Sodium ABG Potassium ABG Chloride ABG Glucose Oxyhemoglobin Carboxyhemoglobin Sodium Potassium Chloride Carbon Dioxide BUN Creatinine Glucose POC Glucose Lactic Acid 2.20 H* Calcium Magnesium Ferritin 42455.0 H Total Bilirubin Direct Bilirubin AST ALT Alkaline Phosphatase Lactate Dehydrogenase C-Reactive Protein Total Protein Albumin Triglycerides Lipase Arterial Blood Glucose Arterial Blood Ionized Calcium Urine WBC (Auto) Coronavirus (PCR) SARS-CoV-2 IgG Ab Crossmatch 05/09/20 05/09/20 05/09/20 14:20 14:20 15:56 WBC RBC Hgb Hct MCV MCH MCHC RDW Lymph % (Auto) [place] % (Auto) Lymph # (Auto) [place] # (Auto) Baso # (Auto) Seg Neutrophils % Seg Neuts % (Manual) Lymphocytes % (Manual) Nucleated RBC % Seg Neutrophils # Seg Neutrophils # Man Lymphocytes # (Manual) Monocytes # (Manual) Eosinophils # (Manual) PT INR APTT D-Dimer Heparin Anti-Xa Level ABG pH POC ABG pCO2 POC ABG pO2 57.3 L ABG pO2 ABG HCO3 ABG O2 Saturation ABG Base Excess ABG Hemoglobin ABG Oxyhemoglobin 86.3 L ABG Sodium 129.9 L ABG Potassium ABG Chloride ABG Glucose 146 H Oxyhemoglobin Carboxyhemoglobin Sodium Potassium Chloride Carbon Dioxide BUN Creatinine Glucose 143 H POC Glucose Lactic Acid Calcium Magnesium Ferritin 20181.0 H Total Bilirubin Direct Bilirubin AST ALT Alkaline Phosphatase Lactate Dehydrogenase 1953 H C-Reactive Protein 33.50 H Total Protein Albumin Triglycerides Lipase Arterial Blood Glucose 146 H Arterial Blood Ionized Calcium 3.9 L Urine WBC (Auto) Coronavirus (PCR) SARS-CoV-2 IgG Ab Crossmatch 05/10/20 05/10/20 05/10/20 10:32 10:32 18:50 WBC 15.4 H RBC Hgb Hct MCV 97 H MCH 33 H MCHC RDW 13.1 L Lymph % (Auto) [place] % (Auto) Lymph # (Auto) [place] # (Auto) Baso # (Auto) Seg Neutrophils % Seg Neuts % (Manual) 89.0 H Lymphocytes % (Manual) 8.0 L Nucleated RBC % Seg Neutrophils # Seg Neutrophils # Man 13.7 H Lymphocytes # (Manual) Monocytes # (Manual) Eosinophils # (Manual) PT INR APTT D-Dimer Heparin Anti-Xa Level ABG pH POC ABG pCO2 POC ABG pO2 ABG pO2 ABG HCO3 ABG O2 Saturation ABG Base Excess ABG Hemoglobin ABG Oxyhemoglobin ABG Sodium ABG Potassium ABG Chloride ABG Glucose Oxyhemoglobin Carboxyhemoglobin Sodium 136 L Potassium Chloride 97.4 L Carbon Dioxide BUN 37 H Creatinine 1.7 H Glucose 209 H POC Glucose Lactic Acid Calcium Magnesium Ferritin > 2000.0 H Total Bilirubin Direct Bilirubin AST ALT Alkaline Phosphatase Lactate Dehydrogenase C-Reactive Protein Total Protein Albumin Triglycerides Lipase Arterial Blood Glucose Arterial Blood Ionized Calcium Urine WBC (Auto) Coronavirus (PCR) SARS-CoV-2 IgG Ab Crossmatch 05/10/20 05/10/20 05/10/20 18:50 19:00 Unknown WBC RBC Hgb Hct MCV MCH MCHC RDW Lymph % (Auto) [place] % (Auto) Lymph # (Auto) [place] # (Auto) Baso # (Auto) Seg Neutrophils % Seg Neuts % (Manual) Lymphocytes % (Manual) Nucleated RBC % Seg Neutrophils # Seg Neutrophils # Man Lymphocytes # (Manual) Monocytes # (Manual) Eosinophils # (Manual) PT INR APTT D-Dimer > 76492 H Heparin Anti-Xa Level ABG pH POC ABG pCO2 POC ABG pO2 ABG pO2 ABG HCO3 ABG O2 Saturation ABG Base Excess ABG Hemoglobin ABG Oxyhemoglobin ABG Sodium ABG Potassium ABG Chloride ABG Glucose Oxyhemoglobin Carboxyhemoglobin Sodium Potassium Chloride Carbon Dioxide BUN Creatinine Glucose POC Glucose Lactic Acid Calcium Magnesium Ferritin Total Bilirubin Direct Bilirubin AST ALT Alkaline Phosphatase Lactate Dehydrogenase 1879 H C-Reactive Protein 24.80 H Total Protein Albumin Triglycerides Lipase Arterial Blood Glucose Arterial Blood Ionized Calcium Urine WBC (Auto) 11.0 H Coronavirus (PCR) SARS-CoV-2 IgG Ab Crossmatch 05/10/20 05/11/20 05/11/20 Unknown 07:30 07:30 WBC RBC Hgb Hct MCV MCH MCHC RDW Lymph % (Auto) [place] % (Auto) Lymph # (Auto) [place] # (Auto) Baso # (Auto) Seg Neutrophils % Seg Neuts % (Manual) Lymphocytes % (Manual) Nucleated RBC % Seg Neutrophils # Seg Neutrophils # Man Lymphocytes # (Manual) Monocytes # (Manual) Eosinophils # (Manual) PT INR APTT D-Dimer > 2000 H Heparin Anti-Xa Level ABG pH POC ABG pCO2 POC ABG pO2 ABG pO2 ABG HCO3 ABG O2 Saturation ABG Base Excess ABG Hemoglobin ABG Oxyhemoglobin ABG Sodium ABG Potassium ABG Chloride ABG Glucose Oxyhemoglobin Carboxyhemoglobin Sodium Potassium Chloride 96.3 L Carbon Dioxide BUN 36 H Creatinine Glucose 161 H POC Glucose Lactic Acid Calcium 8.3 L Magnesium Ferritin Total Bilirubin 1.50 H Direct Bilirubin 0.6 H AST 178 H ALT 111 H Alkaline Phosphatase Lactate Dehydrogenase C-Reactive Protein Total Protein Albumin 3.0 L Triglycerides Lipase Arterial Blood Glucose Arterial Blood Ionized Calcium Urine WBC (Auto) Coronavirus (PCR) Positive A SARS-CoV-2 IgG Ab Crossmatch 11/03/20 11/03/20 11/03/20 07:30 07:30 07:30 WBC RBC Hgb Hct MCV MCH MCHC RDW Lymph % (Auto) [place] % (Auto) Lymph # (Auto) [place] # (Auto) Baso # (Auto) Seg Neutrophils % Seg Neuts % (Manual) Lymphocytes % (Manual) Nucleated RBC % Seg Neutrophils # Seg Neutrophils # Man Lymphocytes # (Manual) Monocytes # (Manual) Eosinophils # (Manual) PT INR APTT D-Dimer Heparin Anti-Xa Level ABG pH POC ABG pCO2 POC ABG pO2 ABG pO2 ABG HCO3 ABG O2 Saturation ABG Base Excess ABG Hemoglobin ABG Oxyhemoglobin ABG Sodium ABG Potassium ABG Chloride ABG Glucose Oxyhemoglobin Carboxyhemoglobin Sodium Potassium Chloride Carbon Dioxide BUN Creatinine Glucose POC Glucose Lactic Acid Calcium Magnesium Ferritin 27367.0 H Total Bilirubin Direct Bilirubin AST ALT Alkaline Phosphatase Lactate Dehydrogenase 1523 H C-Reactive Protein 12.90 H Total Protein Albumin Triglycerides Lipase Arterial Blood Glucose Arterial Blood Ionized Calcium Urine WBC (Auto) Coronavirus (PCR) SARS-CoV-2 IgG Ab Reactive A Crossmatch 05/13/20 05/13/20 05/15/20 05:20 05:20 08:15 WBC RBC Hgb Hct MCV MCH MCHC RDW Lymph % (Auto) [place] % (Auto) Lymph # (Auto) [place] # (Auto) Baso # (Auto) Seg Neutrophils % Seg Neuts % (Manual) Lymphocytes % (Manual) Nucleated RBC % Seg Neutrophils # Seg Neutrophils # Man Lymphocytes # (Manual) Monocytes # (Manual) Eosinophils # (Manual) PT INR APTT D-Dimer > 11507 H 5318.28 H Heparin Anti-Xa Level ABG pH POC ABG pCO2 POC ABG pO2 ABG pO2 ABG HCO3 ABG O2 Saturation ABG Base Excess ABG Hemoglobin ABG Oxyhemoglobin ABG Sodium ABG Potassium ABG Chloride ABG Glucose Oxyhemoglobin Carboxyhemoglobin Sodium Potassium Chloride Carbon Dioxide 32 H BUN 30 H Creatinine Glucose 156 H POC Glucose Lactic Acid Calcium Magnesium 2.60 H Ferritin Total Bilirubin 1.40 H Direct Bilirubin AST 121 H ALT 119 H Alkaline Phosphatase Lactate Dehydrogenase 957 H C-Reactive Protein 4.00 H Total Protein Albumin 3.0 L Triglycerides Lipase Arterial Blood Glucose Arterial Blood Ionized Calcium Urine WBC (Auto) Coronavirus (PCR) SARS-CoV-2 IgG Ab Crossmatch 05/15/20 05/15/20 05/15/20 08:15 08:15 08:15 WBC 12.4 H RBC Hgb Hct MCV 98 H MCH 33 H MCHC RDW Lymph % (Auto) 9.7 L [place] % (Auto) Lymph # (Auto) [place] # (Auto) Baso # (Auto) Seg Neutrophils % 86.8 H Seg Neuts % (Manual) Lymphocytes % (Manual) Nucleated RBC % Seg Neutrophils # 10.8 H Seg Neutrophils # Man Lymphocytes # (Manual) Monocytes # (Manual) Eosinophils # (Manual) PT INR APTT D-Dimer Heparin Anti-Xa Level ABG pH POC ABG pCO2 POC ABG pO2 ABG pO2 ABG HCO3 ABG O2 Saturation ABG Base Excess ABG Hemoglobin ABG Oxyhemoglobin ABG Sodium ABG Potassium ABG Chloride ABG Glucose Oxyhemoglobin Carboxyhemoglobin Sodium Potassium Chloride 94.8 L Carbon Dioxide 32 H BUN 22 H Creatinine Glucose 115 H POC Glucose Lactic Acid Calcium 8.3 L Magnesium Ferritin 2494.0 H Total Bilirubin Direct Bilirubin AST 73 H ALT 121 H Alkaline Phosphatase Lactate Dehydrogenase 835 H C-Reactive Protein 3.40 H Total Protein 6.1 L Albumin 3.0 L Triglycerides Lipase Arterial Blood Glucose Arterial Blood Ionized Calcium Urine WBC (Auto) Coronavirus (PCR) SARS-CoV-2 IgG Ab Crossmatch 05/17/20 05/17/20 05/17/20 05:50 05:50 05:50 WBC RBC Hgb Hct MCV MCH MCHC RDW Lymph % (Auto) [place] % (Auto) Lymph # (Auto) [place] # (Auto) Baso # (Auto) Seg Neutrophils % Seg Neuts % (Manual) Lymphocytes % (Manual) Nucleated RBC % Seg Neutrophils # Seg Neutrophils # Man Lymphocytes # (Manual) Monocytes # (Manual) Eosinophils # (Manual) PT INR APTT D-Dimer 2911.42 H Heparin Anti-Xa Level ABG pH POC ABG pCO2 POC ABG pO2 ABG pO2 ABG HCO3 ABG O2 Saturation ABG Base Excess ABG Hemoglobin ABG Oxyhemoglobin ABG Sodium ABG Potassium ABG Chloride ABG Glucose Oxyhemoglobin Carboxyhemoglobin Sodium 136 L Potassium Chloride 96.0 L Carbon Dioxide 34 H BUN 22 H Creatinine Glucose 140 H POC Glucose Lactic Acid Calcium Magnesium Ferritin 2082.0 H Total Bilirubin Direct Bilirubin AST ALT 75 H Alkaline Phosphatase Lactate Dehydrogenase 601 H C-Reactive Protein 2.70 H Total Protein Albumin 2.9 L Triglycerides Lipase Arterial Blood Glucose Arterial Blood Ionized Calcium Urine WBC (Auto) Coronavirus (PCR) SARS-CoV-2 IgG Ab Crossmatch 05/17/20 05/18/20 05/20/20 05:50 12:22 08:16 WBC RBC Hgb Hct MCV 98 H MCH 33 H MCHC RDW Lymph % (Auto) 8.0 L [place] % (Auto) Lymph # (Auto) 0.8 L [place] # (Auto) Baso # (Auto) Seg Neutrophils % 89.3 H Seg Neuts % (Manual) Lymphocytes % (Manual) Nucleated RBC % Seg Neutrophils # 8.8 H Seg Neutrophils # Man Lymphocytes # (Manual) Monocytes # (Manual) Eosinophils # (Manual) PT INR APTT D-Dimer 1887.82 H Heparin Anti-Xa Level ABG pH POC ABG pCO2 POC ABG pO2 ABG pO2 ABG HCO3 ABG O2 Saturation ABG Base Excess ABG Hemoglobin ABG Oxyhemoglobin ABG Sodium ABG Potassium ABG Chloride ABG Glucose Oxyhemoglobin Carboxyhemoglobin Sodium Potassium Chloride Carbon Dioxide BUN Creatinine Glucose POC Glucose 178 H Lactic Acid Calcium Magnesium Ferritin Total Bilirubin Direct Bilirubin AST ALT Alkaline Phosphatase Lactate Dehydrogenase C-Reactive Protein Total Protein Albumin Triglycerides Lipase Arterial Blood Glucose Arterial Blood Ionized Calcium Urine WBC (Auto) Coronavirus (PCR) SARS-CoV-2 IgG Ab Crossmatch 05/20/20 05/20/20 05/21/20 08:16 08:16 21:10 WBC RBC Hgb Hct MCV MCH MCHC RDW Lymph % (Auto) [place] % (Auto) Lymph # (Auto) [place] # (Auto) Baso # (Auto) Seg Neutrophils % Seg Neuts % (Manual) Lymphocytes % (Manual) Nucleated RBC % Seg Neutrophils # Seg Neutrophils # Man Lymphocytes # (Manual) Monocytes # (Manual) Eosinophils # (Manual) PT INR APTT D-Dimer Heparin Anti-Xa Level ABG pH 7.483 H POC ABG pCO2 POC ABG pO2 ABG pO2 50.0 L ABG HCO3 27.0 H ABG O2 Saturation 86.2 L ABG Base Excess 3.7 H ABG Hemoglobin ABG Oxyhemoglobin ABG Sodium ABG Potassium ABG Chloride ABG Glucose Oxyhemoglobin 84.2 L Carboxyhemoglobin Sodium Potassium Chloride Carbon Dioxide BUN Creatinine Glucose POC Glucose Lactic Acid Calcium Magnesium Ferritin 1960.0 H Total Bilirubin Direct Bilirubin AST ALT Alkaline Phosphatase Lactate Dehydrogenase 705 H C-Reactive Protein 3.10 H Total Protein Albumin Triglycerides Lipase Arterial Blood Glucose Arterial Blood Ionized Calcium Urine WBC (Auto) Coronavirus (PCR) SARS-CoV-2 IgG Ab Crossmatch 05/22/20 05/22/20 05/22/20 04:01 07:53 07:53 WBC 19.2 H RBC Hgb Hct MCV 98 H MCH 34 H MCHC RDW Lymph % (Auto) [place] % (Auto) Lymph # (Auto) [place] # (Auto) Baso # (Auto) Seg Neutrophils % Seg Neuts % (Manual) 96.0 H Lymphocytes % (Manual) 1.0 L Nucleated RBC % Seg Neutrophils # Seg Neutrophils # Man 18.4 H Lymphocytes # (Manual) 0.2 L Monocytes # (Manual) Eosinophils # (Manual) PT INR APTT D-Dimer Heparin Anti-Xa Level ABG pH POC ABG pCO2 53.8 H POC ABG pO2 125.5 H ABG pO2 ABG HCO3 ABG O2 Saturation ABG Base Excess ABG Hemoglobin ABG Oxyhemoglobin ABG Sodium 131.8 L ABG Potassium 4.8 H ABG Chloride 94.0 L ABG Glucose 163 H Oxyhemoglobin Carboxyhemoglobin Sodium 131 L Potassium Chloride 93.4 L Carbon Dioxide BUN 40 H Creatinine Glucose 176 H POC Glucose Lactic Acid Calcium Magnesium 2.70 H Ferritin Total Bilirubin 1.80 H Direct Bilirubin AST 45 H ALT 116 H Alkaline Phosphatase 181 H Lactate Dehydrogenase C-Reactive Protein Total Protein Albumin 2.6 L Triglycerides Lipase Arterial Blood Glucose 163 H Arterial Blood Ionized Calcium 4.5 L Urine WBC (Auto) Coronavirus (PCR) SARS-CoV-2 IgG Ab Crossmatch 05/23/20 05/24/20 05/24/20 04:17 03:07 04:08 WBC RBC Hgb Hct MCV MCH MCHC RDW Lymph % (Auto) [place] % (Auto) Lymph # (Auto) [place] # (Auto) Baso # (Auto) Seg Neutrophils % Seg Neuts % (Manual) Lymphocytes % (Manual) Nucleated RBC % Seg Neutrophils # Seg Neutrophils # Man Lymphocytes # (Manual) Monocytes # (Manual) Eosinophils # (Manual) PT INR APTT D-Dimer Heparin Anti-Xa Level ABG pH 7.328 L POC ABG pCO2 POC ABG pO2 ABG pO2 72.8 L 73.4 L ABG HCO3 31.0 H 34.0 H ABG O2 Saturation 93.5 L ABG Base Excess 3.5 H 7.7 H ABG Hemoglobin 13.3 L 12.1 L ABG Oxyhemoglobin ABG Sodium ABG Potassium ABG Chloride ABG Glucose Oxyhemoglobin 91.5 L 94.3 L Carboxyhemoglobin Sodium Potassium Chloride Carbon Dioxide BUN Creatinine Glucose POC Glucose 155 H Lactic Acid Calcium Magnesium Ferritin Total Bilirubin Direct Bilirubin AST ALT Alkaline Phosphatase Lactate Dehydrogenase C-Reactive Protein Total Protein Albumin Triglycerides Lipase Arterial Blood Glucose Arterial Blood Ionized Calcium Urine WBC (Auto) Coronavirus (PCR) SARS-CoV-2 IgG Ab Crossmatch 05/24/20 05/24/20 05/24/20 09:33 12:21 17:52 WBC RBC Hgb Hct MCV MCH MCHC RDW Lymph % (Auto) [place] % (Auto) Lymph # (Auto) [place] # (Auto) Baso # (Auto) Seg Neutrophils % Seg Neuts % (Manual) Lymphocytes % (Manual) Nucleated RBC % Seg Neutrophils # Seg Neutrophils # Man Lymphocytes # (Manual) Monocytes # (Manual) Eosinophils # (Manual) PT INR APTT D-Dimer Heparin Anti-Xa Level ABG pH POC ABG pCO2 POC ABG pO2 ABG pO2 ABG HCO3 ABG O2 Saturation ABG Base Excess ABG Hemoglobin ABG Oxyhemoglobin ABG Sodium ABG Potassium ABG Chloride ABG Glucose Oxyhemoglobin Carboxyhemoglobin Sodium Potassium Chloride Carbon Dioxide 34 H D BUN 28 H Creatinine 0.7 L Glucose 168 H POC Glucose 173 H 164 H Lactic Acid Calcium Magnesium Ferritin Total Bilirubin Direct Bilirubin AST ALT Alkaline Phosphatase Lactate Dehydrogenase C-Reactive Protein Total Protein Albumin Triglycerides Lipase Arterial Blood Glucose Arterial Blood Ionized Calcium Urine WBC (Auto) Coronavirus (PCR) SARS-CoV-2 IgG Ab Crossmatch 05/24/20 05/25/20 05/25/20 23:47 04:29 05:46 WBC RBC Hgb Hct MCV MCH MCHC RDW Lymph % (Auto) [place] % (Auto) Lymph # (Auto) [place] # (Auto) Baso # (Auto) Seg Neutrophils % Seg Neuts % (Manual) Lymphocytes % (Manual) Nucleated RBC % Seg Neutrophils # Seg Neutrophils # Man Lymphocytes # (Manual) Monocytes # (Manual) Eosinophils # (Manual) PT INR APTT D-Dimer Heparin Anti-Xa Level ABG pH POC ABG pCO2 68.6 H POC ABG pO2 ABG pO2 ABG HCO3 ABG O2 Saturation ABG Base Excess ABG Hemoglobin ABG Oxyhemoglobin ABG Sodium ABG Potassium 4.7 H ABG Chloride ABG Glucose 226 H Oxyhemoglobin Carboxyhemoglobin Sodium Potassium Chloride Carbon Dioxide BUN Creatinine Glucose POC Glucose 171 H 201 H Lactic Acid Calcium Magnesium Ferritin Total Bilirubin Direct Bilirubin AST ALT Alkaline Phosphatase Lactate Dehydrogenase C-Reactive Protein Total Protein Albumin Triglycerides Lipase Arterial Blood Glucose 226 H Arterial Blood Ionized Calcium Urine WBC (Auto) Coronavirus (PCR) SARS-CoV-2 IgG Ab Crossmatch 05/25/20 05/25/20 05/25/20 08:37 08:37 12:38 WBC 12.0 H RBC 3.64 L Hgb Hct MCV 99 H MCH 33 H MCHC RDW Lymph % (Auto) [place] % (Auto) Lymph # (Auto) [place] # (Auto) Baso # (Auto) Seg Neutrophils % Seg Neuts % (Manual) Lymphocytes % (Manual) Nucleated RBC % Seg Neutrophils # Seg Neutrophils # Man Lymphocytes # (Manual) Monocytes # (Manual) Eosinophils # (Manual) PT INR APTT D-Dimer Heparin Anti-Xa Level ABG pH POC ABG pCO2 POC ABG pO2 ABG pO2 ABG HCO3 ABG O2 Saturation ABG Base Excess ABG Hemoglobin ABG Oxyhemoglobin ABG Sodium ABG Potassium ABG Chloride ABG Glucose Oxyhemoglobin Carboxyhemoglobin Sodium Potassium Chloride 97.3 L Carbon Dioxide 35 H BUN 25 H Creatinine 0.7 L Glucose 191 H POC Glucose 182 H Lactic Acid Calcium Magnesium Ferritin Total Bilirubin Direct Bilirubin AST ALT Alkaline Phosphatase Lactate Dehydrogenase C-Reactive Protein Total Protein Albumin Triglycerides Lipase Arterial Blood Glucose Arterial Blood Ionized Calcium Urine WBC (Auto) Coronavirus (PCR) SARS-CoV-2 IgG Ab Crossmatch 05/25/20 05/26/20 05/26/20 18:16 00:06 04:50 WBC RBC Hgb Hct MCV MCH MCHC RDW Lymph % (Auto) [place] % (Auto) Lymph # (Auto) [place] # (Auto) Baso # (Auto) Seg Neutrophils % Seg Neuts % (Manual) Lymphocytes % (Manual) Nucleated RBC % Seg Neutrophils # Seg Neutrophils # Man Lymphocytes # (Manual) Monocytes # (Manual) Eosinophils # (Manual) PT INR APTT D-Dimer Heparin Anti-Xa Level ABG pH POC ABG pCO2 POC ABG pO2 ABG pO2 221.5 H ABG HCO3 40.4 H ABG O2 Saturation 99.3 H ABG Base Excess 12.8 H ABG Hemoglobin 10.4 L ABG Oxyhemoglobin ABG Sodium ABG Potassium ABG Chloride ABG Glucose Oxyhemoglobin Carboxyhemoglobin Sodium Potassium Chloride Carbon Dioxide BUN Creatinine Glucose POC Glucose 176 H 152 H Lactic Acid Calcium Magnesium Ferritin Total Bilirubin Direct Bilirubin AST ALT Alkaline Phosphatase Lactate Dehydrogenase C-Reactive Protein Total Protein Albumin Triglycerides Lipase Arterial Blood Glucose Arterial Blood Ionized Calcium Urine WBC (Auto) Coronavirus (PCR) SARS-CoV-2 IgG Ab Crossmatch 05/26/20 05/26/20 05/26/20 06:11 07:51 07:51 WBC 13.4 H RBC 3.64 L Hgb Hct MCV 98 H MCH 33 H MCHC RDW Lymph % (Auto) [place] % (Auto) Lymph # (Auto) [place] # (Auto) Baso # (Auto) Seg Neutrophils % Seg Neuts % (Manual) Lymphocytes % (Manual) Nucleated RBC % Seg Neutrophils # Seg Neutrophils # Man Lymphocytes # (Manual) Monocytes # (Manual) Eosinophils # (Manual) PT INR APTT D-Dimer Heparin Anti-Xa Level ABG pH POC ABG pCO2 POC ABG pO2 ABG pO2 ABG HCO3 ABG O2 Saturation ABG Base Excess ABG Hemoglobin ABG Oxyhemoglobin ABG Sodium ABG Potassium ABG Chloride ABG Glucose Oxyhemoglobin Carboxyhemoglobin Sodium Potassium Chloride 96.6 L Carbon Dioxide 39 H BUN 29 H Creatinine 0.7 L Glucose 174 H POC Glucose 165 H Lactic Acid Calcium Magnesium Ferritin Total Bilirubin Direct Bilirubin AST ALT Alkaline Phosphatase Lactate Dehydrogenase C-Reactive Protein Total Protein Albumin Triglycerides Lipase Arterial Blood Glucose Arterial Blood Ionized Calcium Urine WBC (Auto) Coronavirus (PCR) SARS-CoV-2 IgG Ab Crossmatch 05/26/20 05/27/20 05/27/20 23:23 03:43 05:29 WBC RBC Hgb Hct MCV MCH MCHC RDW Lymph % (Auto) [place] % (Auto) Lymph # (Auto) [place] # (Auto) Baso # (Auto) Seg Neutrophils % Seg Neuts % (Manual) Lymphocytes % (Manual) Nucleated RBC % Seg Neutrophils # Seg Neutrophils # Man Lymphocytes # (Manual) Monocytes # (Manual) Eosinophils # (Manual) PT INR APTT D-Dimer Heparin Anti-Xa Level ABG pH 7.480 H POC ABG pCO2 52.4 H POC ABG pO2 61.4 L ABG pO2 ABG HCO3 ABG O2 Saturation ABG Base Excess ABG Hemoglobin ABG Oxyhemoglobin ABG Sodium 134.9 L ABG Potassium ABG Chloride 95.0 L ABG Glucose 221 H Oxyhemoglobin Carboxyhemoglobin Sodium Potassium Chloride Carbon Dioxide BUN Creatinine Glucose POC Glucose 169 H 227 H Lactic Acid Calcium Magnesium Ferritin Total Bilirubin Direct Bilirubin AST ALT Alkaline Phosphatase Lactate Dehydrogenase C-Reactive Protein Total Protein Albumin Triglycerides Lipase Arterial Blood Glucose 221 H Arterial Blood Ionized Calcium 4.5 L Urine WBC (Auto) Coronavirus (PCR) SARS-CoV-2 IgG Ab Crossmatch 05/27/20 05/27/20 05/27/20 07:19 12:18 13:50 WBC RBC Hgb Hct MCV MCH MCHC RDW Lymph % (Auto) [place] % (Auto) Lymph # (Auto) [place] # (Auto) Baso # (Auto) Seg Neutrophils % Seg Neuts % (Manual) Lymphocytes % (Manual) Nucleated RBC % Seg Neutrophils # Seg Neutrophils # Man Lymphocytes # (Manual) Monocytes # (Manual) Eosinophils # (Manual) PT INR APTT D-Dimer Heparin Anti-Xa Level ABG pH POC ABG pCO2 POC ABG pO2 ABG pO2 ABG HCO3 ABG O2 Saturation ABG Base Excess ABG Hemoglobin ABG Oxyhemoglobin ABG Sodium ABG Potassium ABG Chloride ABG Glucose Oxyhemoglobin Carboxyhemoglobin Sodium Potassium Chloride Carbon Dioxide BUN Creatinine Glucose POC Glucose 114 H 148 H Lactic Acid Calcium Magnesium Ferritin Total Bilirubin Direct Bilirubin AST ALT Alkaline Phosphatase Lactate Dehydrogenase C-Reactive Protein Total Protein Albumin Triglycerides 247 H Lipase Arterial Blood Glucose Arterial Blood Ionized Calcium Urine WBC (Auto) Coronavirus (PCR) SARS-CoV-2 IgG Ab Crossmatch 05/28/20 05/28/20 05/28/20 00:13 04:16 05:22 WBC RBC Hgb Hct MCV MCH MCHC RDW Lymph % (Auto) [place] % (Auto) Lymph # (Auto) [place] # (Auto) Baso # (Auto) Seg Neutrophils % Seg Neuts % (Manual) Lymphocytes % (Manual) Nucleated RBC % Seg Neutrophils # Seg Neutrophils # Man Lymphocytes # (Manual) Monocytes # (Manual) Eosinophils # (Manual) PT INR APTT D-Dimer Heparin Anti-Xa Level ABG pH POC ABG pCO2 64.4 H POC ABG pO2 60.5 L ABG pO2 ABG HCO3 ABG O2 Saturation ABG Base Excess ABG Hemoglobin ABG Oxyhemoglobin ABG Sodium ABG Potassium ABG Chloride 95.0 L ABG Glucose 209 H Oxyhemoglobin Carboxyhemoglobin Sodium Potassium Chloride Carbon Dioxide BUN Creatinine Glucose POC Glucose 155 H 186 H Lactic Acid Calcium Magnesium Ferritin Total Bilirubin Direct Bilirubin AST ALT Alkaline Phosphatase Lactate Dehydrogenase C-Reactive Protein Total Protein Albumin Triglycerides Lipase Arterial Blood Glucose 209 H Arterial Blood Ionized Calcium Urine WBC (Auto) Coronavirus (PCR) SARS-CoV-2 IgG Ab Crossmatch 05/28/20 05/28/20 05/29/20 12:45 17:39 00:37 WBC RBC Hgb Hct MCV MCH MCHC RDW Lymph % (Auto) [place] % (Auto) Lymph # (Auto) [place] # (Auto) Baso # (Auto) Seg Neutrophils % Seg Neuts % (Manual) Lymphocytes % (Manual) Nucleated RBC % Seg Neutrophils # Seg Neutrophils # Man Lymphocytes # (Manual) Monocytes # (Manual) Eosinophils # (Manual) PT INR APTT D-Dimer Heparin Anti-Xa Level ABG pH POC ABG pCO2 POC ABG pO2 ABG pO2 ABG HCO3 ABG O2 Saturation ABG Base Excess ABG Hemoglobin ABG Oxyhemoglobin ABG Sodium ABG Potassium ABG Chloride ABG Glucose Oxyhemoglobin Carboxyhemoglobin Sodium Potassium Chloride Carbon Dioxide BUN Creatinine Glucose POC Glucose 143 H 164 H 221 H Lactic Acid Calcium Magnesium Ferritin Total Bilirubin Direct Bilirubin AST ALT Alkaline Phosphatase Lactate Dehydrogenase C-Reactive Protein Total Protein Albumin Triglycerides Lipase Arterial Blood Glucose Arterial Blood Ionized Calcium Urine WBC (Auto) Coronavirus (PCR) SARS-CoV-2 IgG Ab Crossmatch 05/29/20 05/29/20 05/29/20 04:15 05:33 12:34 WBC RBC Hgb Hct MCV MCH MCHC RDW Lymph % (Auto) [place] % (Auto) Lymph # (Auto) [place] # (Auto) Baso # (Auto) Seg Neutrophils % Seg Neuts % (Manual) Lymphocytes % (Manual) Nucleated RBC % Seg Neutrophils # Seg Neutrophils # Man Lymphocytes # (Manual) Monocytes # (Manual) Eosinophils # (Manual) PT INR APTT D-Dimer Heparin Anti-Xa Level ABG pH 7.463 H POC ABG pCO2 56.3 H POC ABG pO2 81.2 L ABG pO2 ABG HCO3 ABG O2 Saturation ABG Base Excess ABG Hemoglobin ABG Oxyhemoglobin ABG Sodium ABG Potassium ABG Chloride 96.0 L ABG Glucose 194 H Oxyhemoglobin Carboxyhemoglobin Sodium Potassium Chloride Carbon Dioxide BUN Creatinine Glucose POC Glucose 133 H 221 H Lactic Acid Calcium Magnesium Ferritin Total Bilirubin Direct Bilirubin AST ALT Alkaline Phosphatase Lactate Dehydrogenase C-Reactive Protein Total Protein Albumin Triglycerides Lipase Arterial Blood Glucose 194 H Arterial Blood Ionized Calcium 4.5 L Urine WBC (Auto) Coronavirus (PCR) SARS-CoV-2 IgG Ab Crossmatch 05/29/20 05/30/20 05/30/20 18:07 00:12 05:38 WBC RBC Hgb Hct MCV MCH MCHC RDW Lymph % (Auto) [place] % (Auto) Lymph # (Auto) [place] # (Auto) Baso # (Auto) Seg Neutrophils % Seg Neuts % (Manual) Lymphocytes % (Manual) Nucleated RBC % Seg Neutrophils # Seg Neutrophils # Man Lymphocytes # (Manual) Monocytes # (Manual) Eosinophils # (Manual) PT INR APTT D-Dimer Heparin Anti-Xa Level ABG pH POC ABG pCO2 POC ABG pO2 ABG pO2 ABG HCO3 ABG O2 Saturation ABG Base Excess ABG Hemoglobin ABG Oxyhemoglobin ABG Sodium ABG Potassium ABG Chloride ABG Glucose Oxyhemoglobin Carboxyhemoglobin Sodium Potassium Chloride Carbon Dioxide BUN Creatinine Glucose POC Glucose 162 H 190 H 208 H Lactic Acid Calcium Magnesium Ferritin Total Bilirubin Direct Bilirubin AST ALT Alkaline Phosphatase Lactate Dehydrogenase C-Reactive Protein Total Protein Albumin Triglycerides Lipase Arterial Blood Glucose Arterial Blood Ionized Calcium Urine WBC (Auto) Coronavirus (PCR) SARS-CoV-2 IgG Ab Crossmatch 05/30/20 05/30/20 05/30/20 09:30 11:35 11:54 WBC 12.4 H RBC 3.48 L Hgb 11.3 L Hct 34.6 L MCV 99 H MCH 33 H MCHC RDW Lymph % (Auto) [place] % (Auto) Lymph # (Auto) [place] # (Auto) Baso # (Auto) Seg Neutrophils % Seg Neuts % (Manual) Lymphocytes % (Manual) Nucleated RBC % Seg Neutrophils # Seg Neutrophils # Man Lymphocytes # (Manual) Monocytes # (Manual) Eosinophils # (Manual) PT INR APTT D-Dimer Heparin Anti-Xa Level ABG pH 7.455 H POC ABG pCO2 57.5 H POC ABG pO2 81.5 L ABG pO2 ABG HCO3 ABG O2 Saturation ABG Base Excess ABG Hemoglobin ABG Oxyhemoglobin ABG Sodium ABG Potassium ABG Chloride 96.0 L ABG Glucose 204 H Oxyhemoglobin Carboxyhemoglobin Sodium Potassium Chloride Carbon Dioxide BUN Creatinine Glucose POC Glucose 183 H Lactic Acid Calcium Magnesium Ferritin Total Bilirubin Direct Bilirubin AST ALT Alkaline Phosphatase Lactate Dehydrogenase C-Reactive Protein Total Protein Albumin Triglycerides Lipase Arterial Blood Glucose 204 H Arterial Blood Ionized Calcium Urine WBC (Auto) Coronavirus (PCR) SARS-CoV-2 IgG Ab Crossmatch 05/30/20 05/31/20 05/31/20 18:01 00:10 03:22 WBC RBC Hgb Hct MCV MCH MCHC RDW Lymph % (Auto) [place] % (Auto) Lymph # (Auto) [place] # (Auto) Baso # (Auto) Seg Neutrophils % Seg Neuts % (Manual) Lymphocytes % (Manual) Nucleated RBC % Seg Neutrophils # Seg Neutrophils # Man Lymphocytes # (Manual) Monocytes # (Manual) Eosinophils # (Manual) PT INR APTT D-Dimer Heparin Anti-Xa Level ABG pH POC ABG pCO2 60.4 H POC ABG pO2 71.5 L ABG pO2 ABG HCO3 ABG O2 Saturation ABG Base Excess ABG Hemoglobin ABG Oxyhemoglobin ABG Sodium ABG Potassium ABG Chloride 96.0 L ABG Glucose 169 H Oxyhemoglobin Carboxyhemoglobin Sodium Potassium Chloride Carbon Dioxide BUN Creatinine Glucose POC Glucose 184 H 135 H Lactic Acid Calcium Magnesium Ferritin Total Bilirubin Direct Bilirubin AST ALT Alkaline Phosphatase Lactate Dehydrogenase C-Reactive Protein Total Protein Albumin Triglycerides Lipase Arterial Blood Glucose 169 H Arterial Blood Ionized Calcium 4.5 L Urine WBC (Auto) Coronavirus (PCR) SARS-CoV-2 IgG Ab Crossmatch 05/31/20 05/31/20 05/31/20 05:24 11:18 14:41 WBC RBC Hgb Hct MCV MCH MCHC RDW Lymph % (Auto) [place] % (Auto) Lymph # (Auto) [place] # (Auto) Baso # (Auto) Seg Neutrophils % Seg Neuts % (Manual) Lymphocytes % (Manual) Nucleated RBC % Seg Neutrophils # Seg Neutrophils # Man Lymphocytes # (Manual) Monocytes # (Manual) Eosinophils # (Manual) PT INR APTT D-Dimer Heparin Anti-Xa Level ABG pH POC ABG pCO2 POC ABG pO2 ABG pO2 ABG HCO3 ABG O2 Saturation ABG Base Excess ABG Hemoglobin ABG Oxyhemoglobin ABG Sodium ABG Potassium ABG Chloride ABG Glucose Oxyhemoglobin Carboxyhemoglobin Sodium Potassium Chloride 96.8 L Carbon Dioxide 37 H BUN 31 H Creatinine 0.6 L Glucose 213 H POC Glucose 164 H 208 H Lactic Acid Calcium Magnesium Ferritin Total Bilirubin Direct Bilirubin AST ALT Alkaline Phosphatase Lactate Dehydrogenase C-Reactive Protein Total Protein Albumin Triglycerides Lipase Arterial Blood Glucose Arterial Blood Ionized Calcium Urine WBC (Auto) Coronavirus (PCR) SARS-CoV-2 IgG Ab Crossmatch 05/31/20 05/31/20 06/01/20 17:37 23:47 03:48 WBC RBC Hgb Hct MCV MCH MCHC RDW Lymph % (Auto) [place] % (Auto) Lymph # (Auto) [place] # (Auto) Baso # (Auto) Seg Neutrophils % Seg Neuts % (Manual) Lymphocytes % (Manual) Nucleated RBC % Seg Neutrophils # Seg Neutrophils # Man Lymphocytes # (Manual) Monocytes # (Manual) Eosinophils # (Manual) PT INR APTT D-Dimer Heparin Anti-Xa Level ABG pH POC ABG pCO2 59.7 H POC ABG pO2 73.9 L ABG pO2 ABG HCO3 ABG O2 Saturation ABG Base Excess ABG Hemoglobin ABG Oxyhemoglobin ABG Sodium ABG Potassium ABG Chloride 95.0 L ABG Glucose 256 H Oxyhemoglobin Carboxyhemoglobin Sodium Potassium Chloride Carbon Dioxide BUN Creatinine Glucose POC Glucose 168 H 178 H Lactic Acid Calcium Magnesium Ferritin Total Bilirubin Direct Bilirubin AST ALT Alkaline Phosphatase Lactate Dehydrogenase C-Reactive Protein Total Protein Albumin Triglycerides Lipase Arterial Blood Glucose 256 H Arterial Blood Ionized Calcium Urine WBC (Auto) Coronavirus (PCR) SARS-CoV-2 IgG Ab Crossmatch 06/01/20 06/01/20 06/01/20 05:01 07:47 07:47 WBC 14.4 H RBC 3.46 L Hgb 11.1 L Hct 34.3 L MCV 99 H MCH MCHC RDW Lymph % (Auto) [place] % (Auto) Lymph # (Auto) [place] # (Auto) Baso # (Auto) Seg Neutrophils % Seg Neuts % (Manual) 86.0 H Lymphocytes % (Manual) 9.0 L Nucleated RBC % Seg Neutrophils # Seg Neutrophils # Man 12.4 H Lymphocytes # (Manual) Monocytes # (Manual) Eosinophils # (Manual) PT INR APTT D-Dimer Heparin Anti-Xa Level ABG pH POC ABG pCO2 POC ABG pO2 ABG pO2 ABG HCO3 ABG O2 Saturation ABG Base Excess ABG Hemoglobin ABG Oxyhemoglobin ABG Sodium ABG Potassium ABG Chloride ABG Glucose Oxyhemoglobin Carboxyhemoglobin Sodium Potassium Chloride Carbon Dioxide BUN Creatinine Glucose POC Glucose 197 H Lactic Acid Calcium Magnesium Ferritin Total Bilirubin Direct Bilirubin AST ALT Alkaline Phosphatase Lactate Dehydrogenase C-Reactive Protein Total Protein Albumin Triglycerides 244 H Lipase Arterial Blood Glucose Arterial Blood Ionized Calcium Urine WBC (Auto) Coronavirus (PCR) SARS-CoV-2 IgG Ab Crossmatch 06/01/20 06/01/20 06/01/20 07:47 11:46 18:15 WBC RBC Hgb Hct MCV MCH MCHC RDW Lymph % (Auto) [place] % (Auto) Lymph # (Auto) [place] # (Auto) Baso # (Auto) Seg Neutrophils % Seg Neuts % (Manual) Lymphocytes % (Manual) Nucleated RBC % Seg Neutrophils # Seg Neutrophils # Man Lymphocytes # (Manual) Monocytes # (Manual) Eosinophils # (Manual) PT INR APTT D-Dimer Heparin Anti-Xa Level ABG pH POC ABG pCO2 POC ABG pO2 ABG pO2 ABG HCO3 ABG O2 Saturation ABG Base Excess ABG Hemoglobin ABG Oxyhemoglobin ABG Sodium ABG Potassium ABG Chloride ABG Glucose Oxyhemoglobin Carboxyhemoglobin Sodium Potassium Chloride 95.4 L Carbon Dioxide 35 H BUN 30 H Creatinine 0.5 L Glucose 214 H POC Glucose 181 H 221 H Lactic Acid Calcium Magnesium Ferritin Total Bilirubin Direct Bilirubin AST 54 H ALT 235 H Alkaline Phosphatase Lactate Dehydrogenase C-Reactive Protein Total Protein Albumin 2.9 L Triglycerides Lipase Arterial Blood Glucose Arterial Blood Ionized Calcium Urine WBC (Auto) Coronavirus (PCR) SARS-CoV-2 IgG Ab Crossmatch 06/01/20 06/02/20 06/02/20 23:12 04:00 05:31 WBC RBC Hgb Hct MCV MCH MCHC RDW Lymph % (Auto) [place] % (Auto) Lymph # (Auto) [place] # (Auto) Baso # (Auto) Seg Neutrophils % Seg Neuts % (Manual) Lymphocytes % (Manual) Nucleated RBC % Seg Neutrophils # Seg Neutrophils # Man Lymphocytes # (Manual) Monocytes # (Manual) Eosinophils # (Manual) PT INR APTT D-Dimer Heparin Anti-Xa Level ABG pH 7.465 H POC ABG pCO2 POC ABG pO2 ABG pO2 203.4 H ABG HCO3 41.2 H ABG O2 Saturation 99.3 H ABG Base Excess 15.1 H ABG Hemoglobin 11.5 L ABG Oxyhemoglobin ABG Sodium ABG Potassium ABG Chloride ABG Glucose Oxyhemoglobin Carboxyhemoglobin Sodium Potassium Chloride Carbon Dioxide BUN Creatinine Glucose POC Glucose 197 H 184 H Lactic Acid Calcium Magnesium Ferritin Total Bilirubin Direct Bilirubin AST ALT Alkaline Phosphatase Lactate Dehydrogenase C-Reactive Protein Total Protein Albumin Triglycerides Lipase Arterial Blood Glucose Arterial Blood Ionized Calcium Urine WBC (Auto) Coronavirus (PCR) SARS-CoV-2 IgG Ab Crossmatch 06/02/20 06/02/20 06/02/20 11:49 18:06 23:00 WBC RBC Hgb Hct MCV MCH MCHC RDW Lymph % (Auto) [place] % (Auto) Lymph # (Auto) [place] # (Auto) Baso # (Auto) Seg Neutrophils % Seg Neuts % (Manual) Lymphocytes % (Manual) Nucleated RBC % Seg Neutrophils # Seg Neutrophils # Man Lymphocytes # (Manual) Monocytes # (Manual) Eosinophils # (Manual) PT INR APTT D-Dimer Heparin Anti-Xa Level ABG pH POC ABG pCO2 POC ABG pO2 ABG pO2 ABG HCO3 ABG O2 Saturation ABG Base Excess ABG Hemoglobin ABG Oxyhemoglobin ABG Sodium ABG Potassium ABG Chloride ABG Glucose Oxyhemoglobin Carboxyhemoglobin Sodium Potassium Chloride Carbon Dioxide BUN Creatinine Glucose POC Glucose 195 H 177 H 228 H Lactic Acid Calcium Magnesium Ferritin Total Bilirubin Direct Bilirubin AST ALT Alkaline Phosphatase Lactate Dehydrogenase C-Reactive Protein Total Protein Albumin Triglycerides Lipase Arterial Blood Glucose Arterial Blood Ionized Calcium Urine WBC (Auto) Coronavirus (PCR) SARS-CoV-2 IgG Ab Crossmatch 06/03/20 06/03/20 06/03/20 03:58 05:19 12:21 WBC RBC Hgb Hct MCV MCH MCHC RDW Lymph % (Auto) [place] % (Auto) Lymph # (Auto) [place] # (Auto) Baso # (Auto) Seg Neutrophils % Seg Neuts % (Manual) Lymphocytes % (Manual) Nucleated RBC % Seg Neutrophils # Seg Neutrophils # Man Lymphocytes # (Manual) Monocytes # (Manual) Eosinophils # (Manual) PT INR APTT D-Dimer Heparin Anti-Xa Level ABG pH POC ABG pCO2 POC ABG pO2 ABG pO2 171.0 H ABG HCO3 42.8 H ABG O2 Saturation ABG Base Excess 15.6 H ABG Hemoglobin 12.3 L ABG Oxyhemoglobin ABG Sodium ABG Potassium ABG Chloride ABG Glucose Oxyhemoglobin Carboxyhemoglobin Sodium Potassium Chloride Carbon Dioxide BUN Creatinine Glucose POC Glucose 122 H 207 H Lactic Acid Calcium Magnesium Ferritin Total Bilirubin Direct Bilirubin AST ALT Alkaline Phosphatase Lactate Dehydrogenase C-Reactive Protein Total Protein Albumin Triglycerides Lipase Arterial Blood Glucose Arterial Blood Ionized Calcium Urine WBC (Auto) Coronavirus (PCR) SARS-CoV-2 IgG Ab Crossmatch 06/03/20 06/03/20 06/04/20 17:27 23:50 03:55 WBC RBC Hgb Hct MCV MCH MCHC RDW Lymph % (Auto) [place] % (Auto) Lymph # (Auto) [place] # (Auto) Baso # (Auto) Seg Neutrophils % Seg Neuts % (Manual) Lymphocytes % (Manual) Nucleated RBC % Seg Neutrophils # Seg Neutrophils # Man Lymphocytes # (Manual) Monocytes # (Manual) Eosinophils # (Manual) PT INR APTT D-Dimer Heparin Anti-Xa Level ABG pH POC ABG pCO2 POC ABG pO2 ABG pO2 117.2 H ABG HCO3 42.4 H ABG O2 Saturation ABG Base Excess 15.3 H ABG Hemoglobin 10.5 L ABG Oxyhemoglobin ABG Sodium ABG Potassium ABG Chloride ABG Glucose Oxyhemoglobin Carboxyhemoglobin Sodium Potassium Chloride Carbon Dioxide BUN Creatinine Glucose POC Glucose 157 H 214 H Lactic Acid Calcium Magnesium Ferritin Total Bilirubin Direct Bilirubin AST ALT Alkaline Phosphatase Lactate Dehydrogenase C-Reactive Protein Total Protein Albumin Triglycerides Lipase Arterial Blood Glucose Arterial Blood Ionized Calcium Urine WBC (Auto) Coronavirus (PCR) SARS-CoV-2 IgG Ab Crossmatch 06/04/20 06/04/20 06/04/20 05:49 11:41 17:30 WBC RBC Hgb Hct MCV MCH MCHC RDW Lymph % (Auto) [place] % (Auto) Lymph # (Auto) [place] # (Auto) Baso # (Auto) Seg Neutrophils % Seg Neuts % (Manual) Lymphocytes % (Manual) Nucleated RBC % Seg Neutrophils # Seg Neutrophils # Man Lymphocytes # (Manual) Monocytes # (Manual) Eosinophils # (Manual) PT INR APTT D-Dimer Heparin Anti-Xa Level ABG pH POC ABG pCO2 POC ABG pO2 ABG pO2 ABG HCO3 ABG O2 Saturation ABG Base Excess ABG Hemoglobin ABG Oxyhemoglobin ABG Sodium ABG Potassium ABG Chloride ABG Glucose Oxyhemoglobin Carboxyhemoglobin Sodium Potassium Chloride Carbon Dioxide BUN Creatinine Glucose POC Glucose 149 H 233 H 156 H Lactic Acid Calcium Magnesium Ferritin Total Bilirubin Direct Bilirubin AST ALT Alkaline Phosphatase Lactate Dehydrogenase C-Reactive Protein Total Protein Albumin Triglycerides Lipase Arterial Blood Glucose Arterial Blood Ionized Calcium Urine WBC (Auto) Coronavirus (PCR) SARS-CoV-2 IgG Ab Crossmatch 06/04/20 06/04/20 06/04/20 19:01 20:53 23:41 WBC RBC 3.18 L Hgb 10.8 L Hct 31.8 L MCV 100 H MCH 34 H MCHC RDW Lymph % (Auto) [place] % (Auto) Lymph # (Auto) [place] # (Auto) Baso # (Auto) Seg Neutrophils % Seg Neuts % (Manual) 86.0 H Lymphocytes % (Manual) 10.0 L Nucleated RBC % 1.0 H Seg Neutrophils # Seg Neutrophils # Man 8.5 H Lymphocytes # (Manual) 1.0 L Monocytes # (Manual) Eosinophils # (Manual) PT INR APTT D-Dimer Heparin Anti-Xa Level ABG pH POC ABG pCO2 POC ABG pO2 ABG pO2 ABG HCO3 ABG O2 Saturation ABG Base Excess ABG Hemoglobin ABG Oxyhemoglobin ABG Sodium ABG Potassium ABG Chloride ABG Glucose Oxyhemoglobin Carboxyhemoglobin Sodium Potassium 3.4 L D Chloride 96.5 L Carbon Dioxide 41 H* BUN 27 H Creatinine 0.5 L Glucose 173 H POC Glucose 217 H Lactic Acid Calcium Magnesium Ferritin Total Bilirubin Direct Bilirubin AST ALT Alkaline Phosphatase Lactate Dehydrogenase C-Reactive Protein Total Protein Albumin Triglycerides Lipase Arterial Blood Glucose Arterial Blood Ionized Calcium Urine WBC (Auto) Coronavirus (PCR) SARS-CoV-2 IgG Ab Crossmatch 06/05/20 06/05/20 06/05/20 06:05 11:54 12:35 WBC RBC Hgb Hct MCV MCH MCHC RDW Lymph % (Auto) [place] % (Auto) Lymph # (Auto) [place] # (Auto) Baso # (Auto) Seg Neutrophils % Seg Neuts % (Manual) Lymphocytes % (Manual) Nucleated RBC % Seg Neutrophils # Seg Neutrophils # Man Lymphocytes # (Manual) Monocytes # (Manual) Eosinophils # (Manual) PT INR APTT D-Dimer Heparin Anti-Xa Level ABG pH POC ABG pCO2 POC ABG pO2 ABG pO2 127.9 H ABG HCO3 41.1 H ABG O2 Saturation ABG Base Excess 13.0 H ABG Hemoglobin 13.4 L ABG Oxyhemoglobin ABG Sodium ABG Potassium ABG Chloride ABG Glucose Oxyhemoglobin Carboxyhemoglobin Sodium Potassium Chloride Carbon Dioxide BUN Creatinine Glucose POC Glucose 137 H 211 H Lactic Acid Calcium Magnesium Ferritin Total Bilirubin Direct Bilirubin AST ALT Alkaline Phosphatase Lactate Dehydrogenase C-Reactive Protein Total Protein Albumin Triglycerides Lipase Arterial Blood Glucose Arterial Blood Ionized Calcium Urine WBC (Auto) Coronavirus (PCR) SARS-CoV-2 IgG Ab Crossmatch 06/05/20 06/05/20 06/06/20 17:03 23:49 04:42 WBC RBC Hgb Hct MCV MCH MCHC RDW Lymph % (Auto) [place] % (Auto) Lymph # (Auto) [place] # (Auto) Baso # (Auto) Seg Neutrophils % Seg Neuts % (Manual) Lymphocytes % (Manual) Nucleated RBC % Seg Neutrophils # Seg Neutrophils # Man Lymphocytes # (Manual) Monocytes # (Manual) Eosinophils # (Manual) PT INR APTT D-Dimer Heparin Anti-Xa Level ABG pH POC ABG pCO2 56.1 H POC ABG pO2 52.5 L ABG pO2 ABG HCO3 ABG O2 Saturation ABG Base Excess ABG Hemoglobin 11.7 L ABG Oxyhemoglobin ABG Sodium ABG Potassium 3.3 L ABG Chloride 95.0 L ABG Glucose 156 H Oxyhemoglobin Carboxyhemoglobin Sodium Potassium Chloride Carbon Dioxide BUN Creatinine Glucose POC Glucose 159 H 194 H Lactic Acid Calcium Magnesium Ferritin Total Bilirubin Direct Bilirubin AST ALT Alkaline Phosphatase Lactate Dehydrogenase C-Reactive Protein Total Protein Albumin Triglycerides Lipase Arterial Blood Glucose 156 H Arterial Blood Ionized Calcium Urine WBC (Auto) Coronavirus (PCR) SARS-CoV-2 IgG Ab Crossmatch 06/06/20 06/06/20 06/06/20 05:57 12:06 17:38 WBC RBC Hgb Hct MCV MCH MCHC RDW Lymph % (Auto) [place] % (Auto) Lymph # (Auto) [place] # (Auto) Baso # (Auto) Seg Neutrophils % Seg Neuts % (Manual) Lymphocytes % (Manual) Nucleated RBC % Seg Neutrophils # Seg Neutrophils # Man Lymphocytes # (Manual) Monocytes # (Manual) Eosinophils # (Manual) PT INR APTT D-Dimer Heparin Anti-Xa Level ABG pH POC ABG pCO2 POC ABG pO2 ABG pO2 ABG HCO3 ABG O2 Saturation ABG Base Excess ABG Hemoglobin ABG Oxyhemoglobin ABG Sodium ABG Potassium ABG Chloride ABG Glucose Oxyhemoglobin Carboxyhemoglobin Sodium Potassium Chloride Carbon Dioxide BUN Creatinine Glucose POC Glucose 144 H 230 H 162 H Lactic Acid Calcium Magnesium Ferritin Total Bilirubin Direct Bilirubin AST ALT Alkaline Phosphatase Lactate Dehydrogenase C-Reactive Protein Total Protein Albumin Triglycerides Lipase Arterial Blood Glucose Arterial Blood Ionized Calcium Urine WBC (Auto) Coronavirus (PCR) SARS-CoV-2 IgG Ab Crossmatch 06/06/20 06/07/20 06/07/20 23:50 04:34 06:03 WBC RBC Hgb Hct MCV MCH MCHC RDW Lymph % (Auto) [place] % (Auto) Lymph # (Auto) [place] # (Auto) Baso # (Auto) Seg Neutrophils % Seg Neuts % (Manual) Lymphocytes % (Manual) Nucleated RBC % Seg Neutrophils # Seg Neutrophils # Man Lymphocytes # (Manual) Monocytes # (Manual) Eosinophils # (Manual) PT INR APTT D-Dimer Heparin Anti-Xa Level ABG pH 7.511 H POC ABG pCO2 53.5 H POC ABG pO2 114.5 H ABG pO2 ABG HCO3 ABG O2 Saturation ABG Base Excess ABG Hemoglobin 9.4 L ABG Oxyhemoglobin ABG Sodium 134.5 L ABG Potassium ABG Chloride 94.0 L ABG Glucose 186 H Oxyhemoglobin Carboxyhemoglobin Sodium Potassium Chloride Carbon Dioxide BUN Creatinine Glucose POC Glucose 181 H 155 H Lactic Acid Calcium Magnesium Ferritin Total Bilirubin Direct Bilirubin AST ALT Alkaline Phosphatase Lactate Dehydrogenase C-Reactive Protein Total Protein Albumin Triglycerides Lipase Arterial Blood Glucose 186 H Arterial Blood Ionized Calcium 4.5 L Urine WBC (Auto) Coronavirus (PCR) SARS-CoV-2 IgG Ab Crossmatch 06/07/20 06/07/20 06/07/20 13:41 14:58 14:58 WBC RBC 2.72 L Hgb 9.3 L Hct 27.2 L MCV 100 H MCH 34 H MCHC RDW Lymph % (Auto) [place] % (Auto) Lymph # (Auto) [place] # (Auto) Baso # (Auto) Seg Neutrophils % Seg Neuts % (Manual) Lymphocytes % (Manual) Nucleated RBC % Seg Neutrophils # Seg Neutrophils # Man Lymphocytes # (Manual) Monocytes # (Manual) Eosinophils # (Manual) PT INR APTT D-Dimer Heparin Anti-Xa Level ABG pH POC ABG pCO2 POC ABG pO2 ABG pO2 ABG HCO3 ABG O2 Saturation ABG Base Excess ABG Hemoglobin ABG Oxyhemoglobin ABG Sodium ABG Potassium ABG Chloride ABG Glucose Oxyhemoglobin Carboxyhemoglobin Sodium Potassium Chloride 93.5 L Carbon Dioxide 39 H BUN 22 H Creatinine 0.4 L Glucose 188 H POC Glucose 201 H Lactic Acid Calcium Magnesium Ferritin Total Bilirubin Direct Bilirubin AST 61 H ALT 273 H Alkaline Phosphatase Lactate Dehydrogenase C-Reactive Protein Total Protein 5.9 L Albumin 2.7 L Triglycerides Lipase Arterial Blood Glucose Arterial Blood Ionized Calcium Urine WBC (Auto) Coronavirus (PCR) SARS-CoV-2 IgG Ab Crossmatch 06/07/20 06/08/20 06/08/20 23:18 05:31 12:07 WBC RBC Hgb Hct MCV MCH MCHC RDW Lymph % (Auto) [place] % (Auto) Lymph # (Auto) [place] # (Auto) Baso # (Auto) Seg Neutrophils % Seg Neuts % (Manual) Lymphocytes % (Manual) Nucleated RBC % Seg Neutrophils # Seg Neutrophils # Man Lymphocytes # (Manual) Monocytes # (Manual) Eosinophils # (Manual) PT INR APTT D-Dimer Heparin Anti-Xa Level ABG pH POC ABG pCO2 POC ABG pO2 ABG pO2 ABG HCO3 ABG O2 Saturation ABG Base Excess ABG Hemoglobin ABG Oxyhemoglobin ABG Sodium ABG Potassium ABG Chloride ABG Glucose Oxyhemoglobin Carboxyhemoglobin Sodium Potassium Chloride Carbon Dioxide BUN Creatinine Glucose POC Glucose 214 H 129 H 179 H Lactic Acid Calcium Magnesium Ferritin Total Bilirubin Direct Bilirubin AST ALT Alkaline Phosphatase Lactate Dehydrogenase C-Reactive Protein Total Protein Albumin Triglycerides Lipase Arterial Blood Glucose Arterial Blood Ionized Calcium Urine WBC (Auto) Coronavirus (PCR) SARS-CoV-2 IgG Ab Crossmatch 06/08/20 06/08/20 06/09/20 18:18 23:35 05:42 WBC RBC Hgb Hct MCV MCH MCHC RDW Lymph % (Auto) [place] % (Auto) Lymph # (Auto) [place] # (Auto) Baso # (Auto) Seg Neutrophils % Seg Neuts % (Manual) Lymphocytes % (Manual) Nucleated RBC % Seg Neutrophils # Seg Neutrophils # Man Lymphocytes # (Manual) Monocytes # (Manual) Eosinophils # (Manual) PT INR APTT D-Dimer Heparin Anti-Xa Level ABG pH POC ABG pCO2 POC ABG pO2 ABG pO2 ABG HCO3 ABG O2 Saturation ABG Base Excess ABG Hemoglobin ABG Oxyhemoglobin ABG Sodium ABG Potassium ABG Chloride ABG Glucose Oxyhemoglobin Carboxyhemoglobin Sodium Potassium Chloride Carbon Dioxide BUN Creatinine Glucose POC Glucose 172 H 177 H 137 H Lactic Acid Calcium Magnesium Ferritin Total Bilirubin Direct Bilirubin AST ALT Alkaline Phosphatase Lactate Dehydrogenase C-Reactive Protein Total Protein Albumin Triglycerides Lipase Arterial Blood Glucose Arterial Blood Ionized Calcium Urine WBC (Auto) Coronavirus (PCR) SARS-CoV-2 IgG Ab Crossmatch 06/09/20 06/09/20 06/09/20 06:20 07:55 07:55 WBC 12.4 H RBC 3.26 L Hgb 11.1 L Hct 33.4 L D MCV 102 H MCH 34 H MCHC RDW Lymph % (Auto) [place] % (Auto) Lymph # (Auto) [place] # (Auto) Baso # (Auto) Seg Neutrophils % Seg Neuts % (Manual) Lymphocytes % (Manual) Nucleated RBC % Seg Neutrophils # Seg Neutrophils # Man Lymphocytes # (Manual) Monocytes # (Manual) Eosinophils # (Manual) PT INR APTT D-Dimer Heparin Anti-Xa Level ABG pH 7.466 H POC ABG pCO2 50.7 H POC ABG pO2 53.0 L ABG pO2 ABG HCO3 ABG O2 Saturation ABG Base Excess ABG Hemoglobin ABG Oxyhemoglobin ABG Sodium ABG Potassium 2.9 L ABG Chloride 93.0 L ABG Glucose 138 H Oxyhemoglobin Carboxyhemoglobin Sodium Potassium 3.0 L Chloride 92.3 L Carbon Dioxide 37 H BUN 21 H Creatinine 0.6 L Glucose 120 H POC Glucose Lactic Acid Calcium Magnesium Ferritin Total Bilirubin Direct Bilirubin AST ALT Alkaline Phosphatase Lactate Dehydrogenase C-Reactive Protein Total Protein Albumin Triglycerides Lipase Arterial Blood Glucose 138 H Arterial Blood Ionized Calcium 4.5 L Urine WBC (Auto) Coronavirus (PCR) SARS-CoV-2 IgG Ab Crossmatch 06/09/20 06/09/20 06/10/20 11:22 18:32 04:46 WBC RBC Hgb Hct MCV MCH MCHC RDW Lymph % (Auto) [place] % (Auto) Lymph # (Auto) [place] # (Auto) Baso # (Auto) Seg Neutrophils % Seg Neuts % (Manual) Lymphocytes % (Manual) Nucleated RBC % Seg Neutrophils # Seg Neutrophils # Man Lymphocytes # (Manual) Monocytes # (Manual) Eosinophils # (Manual) PT INR APTT D-Dimer Heparin Anti-Xa Level ABG pH 7.501 H POC ABG pCO2 POC ABG pO2 126.5 H ABG pO2 ABG HCO3 ABG O2 Saturation ABG Base Excess ABG Hemoglobin 10.3 L ABG Oxyhemoglobin ABG Sodium ABG Potassium ABG Chloride ABG Glucose 220 H Oxyhemoglobin Carboxyhemoglobin Sodium Potassium Chloride Carbon Dioxide BUN Creatinine Glucose POC Glucose 117 H 121 H Lactic Acid Calcium Magnesium Ferritin Total Bilirubin Direct Bilirubin AST ALT Alkaline Phosphatase Lactate Dehydrogenase C-Reactive Protein Total Protein Albumin Triglycerides Lipase Arterial Blood Glucose 220 H Arterial Blood Ionized Calcium Urine WBC (Auto) Coronavirus (PCR) SARS-CoV-2 IgG Ab Crossmatch 06/10/20 06/10/20 06/10/20 05:30 09:38 12:03 WBC RBC Hgb Hct MCV MCH MCHC RDW Lymph % (Auto) [place] % (Auto) Lymph # (Auto) [place] # (Auto) Baso # (Auto) Seg Neutrophils % Seg Neuts % (Manual) Lymphocytes % (Manual) Nucleated RBC % Seg Neutrophils # Seg Neutrophils # Man Lymphocytes # (Manual) Monocytes # (Manual) Eosinophils # (Manual) PT INR APTT D-Dimer Heparin Anti-Xa Level ABG pH POC ABG pCO2 POC ABG pO2 ABG pO2 ABG HCO3 ABG O2 Saturation ABG Base Excess ABG Hemoglobin ABG Oxyhemoglobin ABG Sodium ABG Potassium ABG Chloride ABG Glucose Oxyhemoglobin Carboxyhemoglobin Sodium Potassium Chloride Carbon Dioxide BUN Creatinine Glucose POC Glucose 181 H 204 H Lactic Acid Calcium Magnesium Ferritin Total Bilirubin Direct Bilirubin AST ALT Alkaline Phosphatase Lactate Dehydrogenase C-Reactive Protein Total Protein Albumin Triglycerides 738 H Lipase Arterial Blood Glucose Arterial Blood Ionized Calcium Urine WBC (Auto) Coronavirus (PCR) SARS-CoV-2 IgG Ab Crossmatch 06/10/20 06/11/20 06/11/20 17:17 00:04 04:38 WBC RBC Hgb Hct MCV MCH MCHC RDW Lymph % (Auto) [place] % (Auto) Lymph # (Auto) [place] # (Auto) Baso # (Auto) Seg Neutrophils % Seg Neuts % (Manual) Lymphocytes % (Manual) Nucleated RBC % Seg Neutrophils # Seg Neutrophils # Man Lymphocytes # (Manual) Monocytes # (Manual) Eosinophils # (Manual) PT INR APTT D-Dimer Heparin Anti-Xa Level ABG pH 7.479 H POC ABG pCO2 POC ABG pO2 76.7 L ABG pO2 ABG HCO3 ABG O2 Saturation ABG Base Excess ABG Hemoglobin 9.8 L ABG Oxyhemoglobin ABG Sodium 135.8 L ABG Potassium ABG Chloride ABG Glucose 238 H Oxyhemoglobin Carboxyhemoglobin Sodium Potassium Chloride Carbon Dioxide BUN Creatinine Glucose POC Glucose 156 H 178 H Lactic Acid Calcium Magnesium Ferritin Total Bilirubin Direct Bilirubin AST ALT Alkaline Phosphatase Lactate Dehydrogenase C-Reactive Protein Total Protein Albumin Triglycerides Lipase Arterial Blood Glucose 238 H Arterial Blood Ionized Calcium Urine WBC (Auto) Coronavirus (PCR) SARS-CoV-2 IgG Ab Crossmatch 06/11/20 06/11/20 06/11/20 05:21 06:52 11:50 WBC RBC Hgb Hct MCV MCH MCHC RDW Lymph % (Auto) [place] % (Auto) Lymph # (Auto) [place] # (Auto) Baso # (Auto) Seg Neutrophils % Seg Neuts % (Manual) Lymphocytes % (Manual) Nucleated RBC % Seg Neutrophils # Seg Neutrophils # Man Lymphocytes # (Manual) Monocytes # (Manual) Eosinophils # (Manual) PT INR APTT D-Dimer Heparin Anti-Xa Level ABG pH POC ABG pCO2 POC ABG pO2 ABG pO2 ABG HCO3 ABG O2 Saturation ABG Base Excess ABG Hemoglobin ABG Oxyhemoglobin ABG Sodium ABG Potassium ABG Chloride ABG Glucose Oxyhemoglobin Carboxyhemoglobin Sodium Potassium Chloride Carbon Dioxide BUN Creatinine Glucose POC Glucose 215 H 187 H Lactic Acid Calcium Magnesium Ferritin Total Bilirubin Direct Bilirubin AST ALT Alkaline Phosphatase Lactate Dehydrogenase C-Reactive Protein Total Protein Albumin Triglycerides 331 H Lipase Arterial Blood Glucose Arterial Blood Ionized Calcium Urine WBC (Auto) Coronavirus (PCR) SARS-CoV-2 IgG Ab Crossmatch 06/11/20 06/11/20 06/12/20 17:49 23:35 04:52 WBC RBC Hgb Hct MCV MCH MCHC RDW Lymph % (Auto) [place] % (Auto) Lymph # (Auto) [place] # (Auto) Baso # (Auto) Seg Neutrophils % Seg Neuts % (Manual) Lymphocytes % (Manual) Nucleated RBC % Seg Neutrophils # Seg Neutrophils # Man Lymphocytes # (Manual) Monocytes # (Manual) Eosinophils # (Manual) PT INR APTT D-Dimer Heparin Anti-Xa Level ABG pH 7.486 H POC ABG pCO2 POC ABG pO2 ABG pO2 ABG HCO3 ABG O2 Saturation ABG Base Excess ABG Hemoglobin 9.4 L ABG Oxyhemoglobin ABG Sodium ABG Potassium 3.2 L ABG Chloride ABG Glucose 209 H Oxyhemoglobin Carboxyhemoglobin Sodium Potassium Chloride Carbon Dioxide BUN Creatinine Glucose POC Glucose 211 H 200 H Lactic Acid Calcium Magnesium Ferritin Total Bilirubin Direct Bilirubin AST ALT Alkaline Phosphatase Lactate Dehydrogenase C-Reactive Protein Total Protein Albumin Triglycerides Lipase Arterial Blood Glucose 209 H Arterial Blood Ionized Calcium Urine WBC (Auto) Coronavirus (PCR) SARS-CoV-2 IgG Ab Crossmatch 06/12/20 06/12/20 06/12/20 05:13 11:47 18:33 WBC RBC Hgb Hct MCV MCH MCHC RDW Lymph % (Auto) [place] % (Auto) Lymph # (Auto) [place] # (Auto) Baso # (Auto) Seg Neutrophils % Seg Neuts % (Manual) Lymphocytes % (Manual) Nucleated RBC % Seg Neutrophils # Seg Neutrophils # Man Lymphocytes # (Manual) Monocytes # (Manual) Eosinophils # (Manual) PT INR APTT D-Dimer Heparin Anti-Xa Level ABG pH POC ABG pCO2 POC ABG pO2 ABG pO2 ABG HCO3 ABG O2 Saturation ABG Base Excess ABG Hemoglobin ABG Oxyhemoglobin ABG Sodium ABG Potassium ABG Chloride ABG Glucose Oxyhemoglobin Carboxyhemoglobin Sodium Potassium Chloride Carbon Dioxide BUN Creatinine Glucose POC Glucose 174 H 214 H 194 H Lactic Acid Calcium Magnesium Ferritin Total Bilirubin Direct Bilirubin AST ALT Alkaline Phosphatase Lactate Dehydrogenase C-Reactive Protein Total Protein Albumin Triglycerides Lipase Arterial Blood Glucose Arterial Blood Ionized Calcium Urine WBC (Auto) Coronavirus (PCR) SARS-CoV-2 IgG Ab Crossmatch 06/12/20 06/13/20 06/13/20 23:49 05:41 12:30 WBC RBC Hgb Hct MCV MCH MCHC RDW Lymph % (Auto) [place] % (Auto) Lymph # (Auto) [place] # (Auto) Baso # (Auto) Seg Neutrophils % Seg Neuts % (Manual) Lymphocytes % (Manual) Nucleated RBC % Seg Neutrophils # Seg Neutrophils # Man Lymphocytes # (Manual) Monocytes # (Manual) Eosinophils # (Manual) PT INR APTT D-Dimer Heparin Anti-Xa Level ABG pH POC ABG pCO2 POC ABG pO2 ABG pO2 ABG HCO3 ABG O2 Saturation ABG Base Excess ABG Hemoglobin ABG Oxyhemoglobin ABG Sodium ABG Potassium ABG Chloride ABG Glucose Oxyhemoglobin Carboxyhemoglobin Sodium Potassium Chloride Carbon Dioxide BUN Creatinine Glucose POC Glucose 160 H 150 H 181 H Lactic Acid Calcium Magnesium Ferritin Total Bilirubin Direct Bilirubin AST ALT Alkaline Phosphatase Lactate Dehydrogenase C-Reactive Protein Total Protein Albumin Triglycerides Lipase Arterial Blood Glucose Arterial Blood Ionized Calcium Urine WBC (Auto) Coronavirus (PCR) SARS-CoV-2 IgG Ab Crossmatch 06/13/20 06/13/20 06/13/20 14:14 17:48 23:27 WBC 12.8 H RBC 2.33 L Hgb 8.0 L Hct 23.3 L MCV 100 H MCH 34 H MCHC RDW 15.7 H Lymph % (Auto) [place] % (Auto) Lymph # (Auto) [place] # (Auto) Baso # (Auto) Seg Neutrophils % Seg Neuts % (Manual) 85.0 H Lymphocytes % (Manual) 10.0 L Nucleated RBC % Seg Neutrophils # Seg Neutrophils # Man 10.9 H Lymphocytes # (Manual) Monocytes # (Manual) Eosinophils # (Manual) PT INR APTT D-Dimer Heparin Anti-Xa Level ABG pH POC ABG pCO2 POC ABG pO2 ABG pO2 ABG HCO3 ABG O2 Saturation ABG Base Excess ABG Hemoglobin ABG Oxyhemoglobin ABG Sodium ABG Potassium ABG Chloride ABG Glucose Oxyhemoglobin Carboxyhemoglobin Sodium Potassium Chloride Carbon Dioxide BUN Creatinine Glucose POC Glucose 173 H 154 H Lactic Acid Calcium Magnesium Ferritin Total Bilirubin Direct Bilirubin AST ALT Alkaline Phosphatase Lactate Dehydrogenase C-Reactive Protein Total Protein Albumin Triglycerides Lipase Arterial Blood Glucose Arterial Blood Ionized Calcium Urine WBC (Auto) Coronavirus (PCR) SARS-CoV-2 IgG Ab Crossmatch 06/14/20 06/14/20 06/14/20 03:58 05:21 07:15 WBC 26.2 H RBC 2.97 L Hgb 9.7 L Hct 29.9 L D MCV 101 H MCH 33 H MCHC RDW 15.3 H Lymph % (Auto) [place] % (Auto) Lymph # (Auto) [place] # (Auto) Baso # (Auto) Seg Neutrophils % Seg Neuts % (Manual) 79.0 H Lymphocytes % (Manual) 5.0 L Nucleated RBC % 3.0 H Seg Neutrophils # Seg Neutrophils # Man 20.7 H Lymphocytes # (Manual) Monocytes # (Manual) 1.3 H Eosinophils # (Manual) PT INR APTT D-Dimer Heparin Anti-Xa Level ABG pH POC ABG pCO2 51.5 H POC ABG pO2 70.0 L ABG pO2 ABG HCO3 ABG O2 Saturation ABG Base Excess ABG Hemoglobin 10.1 L ABG Oxyhemoglobin ABG Sodium 131.5 L ABG Potassium 3.1 L ABG Chloride 93.0 L ABG Glucose 188 H Oxyhemoglobin Carboxyhemoglobin Sodium Potassium Chloride Carbon Dioxide BUN Creatinine Glucose POC Glucose 147 H Lactic Acid Calcium Magnesium Ferritin Total Bilirubin Direct Bilirubin AST ALT Alkaline Phosphatase Lactate Dehydrogenase C-Reactive Protein Total Protein Albumin Triglycerides Lipase Arterial Blood Glucose 188 H Arterial Blood Ionized Calcium Urine WBC (Auto) Coronavirus (PCR) SARS-CoV-2 IgG Ab Crossmatch 06/14/20 06/14/20 06/14/20 07:15 11:30 11:50 WBC RBC Hgb Hct MCV MCH MCHC RDW Lymph % (Auto) [place] % (Auto) Lymph # (Auto) [place] # (Auto) Baso # (Auto) Seg Neutrophils % Seg Neuts % (Manual) Lymphocytes % (Manual) Nucleated RBC % Seg Neutrophils # Seg Neutrophils # Man Lymphocytes # (Manual) Monocytes # (Manual) Eosinophils # (Manual) PT INR APTT D-Dimer Heparin Anti-Xa Level ABG pH POC ABG pCO2 POC ABG pO2 ABG pO2 ABG HCO3 ABG O2 Saturation ABG Base Excess ABG Hemoglobin ABG Oxyhemoglobin ABG Sodium ABG Potassium ABG Chloride ABG Glucose Oxyhemoglobin Carboxyhemoglobin Sodium 135 L Potassium 3.5 L Chloride 90.4 L Carbon Dioxide 38 H BUN Creatinine 0.5 L Glucose 190 H POC Glucose 176 H Lactic Acid Calcium Magnesium Ferritin 1496.0 H Total Bilirubin Direct Bilirubin AST ALT 81 H Alkaline Phosphatase Lactate Dehydrogenase C-Reactive Protein Total Protein Albumin 2.9 L Triglycerides Lipase Arterial Blood Glucose Arterial Blood Ionized Calcium Urine WBC (Auto) Coronavirus (PCR) SARS-CoV-2 IgG Ab Crossmatch 06/14/20 06/15/20 06/15/20 23:31 04:00 05:00 WBC RBC Hgb Hct MCV MCH MCHC RDW Lymph % (Auto) [place] % (Auto) Lymph # (Auto) [place] # (Auto) Baso # (Auto) Seg Neutrophils % Seg Neuts % (Manual) Lymphocytes % (Manual) Nucleated RBC % Seg Neutrophils # Seg Neutrophils # Man Lymphocytes # (Manual) Monocytes # (Manual) Eosinophils # (Manual) PT INR APTT D-Dimer Heparin Anti-Xa Level ABG pH POC ABG pCO2 POC ABG pO2 ABG pO2 ABG HCO3 ABG O2 Saturation ABG Base Excess ABG Hemoglobin ABG Oxyhemoglobin ABG Sodium ABG Potassium ABG Chloride ABG Glucose Oxyhemoglobin Carboxyhemoglobin Sodium 133 L Potassium Chloride 91.1 L Carbon Dioxide 34 H BUN Creatinine 0.4 L Glucose 159 H POC Glucose 200 H Lactic Acid Calcium Magnesium Ferritin Total Bilirubin 2.00 H Direct Bilirubin AST 47 H ALT 77 H Alkaline Phosphatase Lactate Dehydrogenase C-Reactive Protein Total Protein Albumin 2.6 L Triglycerides 152 H Lipase Arterial Blood Glucose Arterial Blood Ionized Calcium Urine WBC (Auto) Coronavirus (PCR) SARS-CoV-2 IgG Ab Crossmatch 06/15/20 06/15/20 06/15/20 05:35 06:27 11:38 WBC RBC Hgb Hct MCV MCH MCHC RDW Lymph % (Auto) [place] % (Auto) Lymph # (Auto) [place] # (Auto) Baso # (Auto) Seg Neutrophils % Seg Neuts % (Manual) Lymphocytes % (Manual) Nucleated RBC % Seg Neutrophils # Seg Neutrophils # Man Lymphocytes # (Manual) Monocytes # (Manual) Eosinophils # (Manual) PT INR APTT D-Dimer Heparin Anti-Xa Level ABG pH POC ABG pCO2 61.0 H POC ABG pO2 67.9 L ABG pO2 ABG HCO3 ABG O2 Saturation ABG Base Excess ABG Hemoglobin 10.4 L ABG Oxyhemoglobin ABG Sodium 132.7 L ABG Potassium 3.3 L ABG Chloride 92.0 L ABG Glucose 158 H Oxyhemoglobin Carboxyhemoglobin Sodium Potassium Chloride Carbon Dioxide BUN Creatinine Glucose POC Glucose 148 H 197 H Lactic Acid Calcium Magnesium Ferritin Total Bilirubin Direct Bilirubin AST ALT Alkaline Phosphatase Lactate Dehydrogenase C-Reactive Protein Total Protein Albumin Triglycerides Lipase Arterial Blood Glucose 158 H Arterial Blood Ionized Calcium Urine WBC (Auto) Coronavirus (PCR) SARS-CoV-2 IgG Ab Crossmatch 06/15/20 06/15/20 06/16/20 17:29 Unknown 00:01 WBC 20.7 H RBC 2.57 L Hgb 8.9 L Hct 25.8 L MCV 101 H MCH 35 H MCHC 35 H RDW 16.0 H Lymph % (Auto) [place] % (Auto) Lymph # (Auto) [place] # (Auto) Baso # (Auto) Seg Neutrophils % Seg Neuts % (Manual) 83.0 H Lymphocytes % (Manual) 8.0 L Nucleated RBC % Seg Neutrophils # Seg Neutrophils # Man 17.2 H Lymphocytes # (Manual) Monocytes # (Manual) 1.2 H Eosinophils # (Manual) PT INR APTT D-Dimer Heparin Anti-Xa Level ABG pH POC ABG pCO2 POC ABG pO2 ABG pO2 ABG HCO3 ABG O2 Saturation ABG Base Excess ABG Hemoglobin ABG Oxyhemoglobin ABG Sodium ABG Potassium ABG Chloride ABG Glucose Oxyhemoglobin Carboxyhemoglobin Sodium Potassium Chloride Carbon Dioxide BUN Creatinine Glucose POC Glucose 231 H 257 H Lactic Acid Calcium Magnesium Ferritin Total Bilirubin Direct Bilirubin AST ALT Alkaline Phosphatase Lactate Dehydrogenase C-Reactive Protein Total Protein Albumin Triglycerides Lipase Arterial Blood Glucose Arterial Blood Ionized Calcium Urine WBC (Auto) Coronavirus (PCR) SARS-CoV-2 IgG Ab Crossmatch 06/16/20 06/16/20 06/16/20 04:00 04:00 05:22 WBC 13.8 H RBC 2.03 L Hgb 7.6 L Hct 20.7 L MCV 102 H MCH 37 H MCHC 37 H RDW 16.2 H Lymph % (Auto) 4.4 L [place] % (Auto) Lymph # (Auto) 0.6 L [place] # (Auto) Baso # (Auto) Seg Neutrophils % Seg Neuts % (Manual) Lymphocytes % (Manual) Nucleated RBC % Seg Neutrophils # 12.7 H Seg Neutrophils # Man Lymphocytes # (Manual) Monocytes # (Manual) Eosinophils # (Manual) PT INR APTT D-Dimer Heparin Anti-Xa Level ABG pH POC ABG pCO2 POC ABG pO2 ABG pO2 ABG HCO3 ABG O2 Saturation ABG Base Excess ABG Hemoglobin ABG Oxyhemoglobin ABG Sodium ABG Potassium ABG Chloride ABG Glucose Oxyhemoglobin Carboxyhemoglobin Sodium 130 L Potassium Chloride 88.9 L Carbon Dioxide 36 H BUN Creatinine 0.3 L Glucose 276 H POC Glucose 250 H Lactic Acid Calcium Magnesium Ferritin Total Bilirubin Direct Bilirubin AST ALT Alkaline Phosphatase Lactate Dehydrogenase C-Reactive Protein Total Protein Albumin Triglycerides Lipase Arterial Blood Glucose Arterial Blood Ionized Calcium Urine WBC (Auto) Coronavirus (PCR) SARS-CoV-2 IgG Ab Crossmatch 06/16/20 06/16/20 06/17/20 12:44 18:18 00:39 WBC RBC Hgb Hct MCV MCH MCHC RDW Lymph % (Auto) [place] % (Auto) Lymph # (Auto) [place] # (Auto) Baso # (Auto) Seg Neutrophils % Seg Neuts % (Manual) Lymphocytes % (Manual) Nucleated RBC % Seg Neutrophils # Seg Neutrophils # Man Lymphocytes # (Manual) Monocytes # (Manual) Eosinophils # (Manual) PT INR APTT D-Dimer Heparin Anti-Xa Level ABG pH POC ABG pCO2 POC ABG pO2 ABG pO2 ABG HCO3 ABG O2 Saturation ABG Base Excess ABG Hemoglobin ABG Oxyhemoglobin ABG Sodium ABG Potassium ABG Chloride ABG Glucose Oxyhemoglobin Carboxyhemoglobin Sodium Potassium Chloride Carbon Dioxide BUN Creatinine Glucose POC Glucose 279 H 239 H 247 H Lactic Acid Calcium Magnesium Ferritin Total Bilirubin Direct Bilirubin AST ALT Alkaline Phosphatase Lactate Dehydrogenase C-Reactive Protein Total Protein Albumin Triglycerides Lipase Arterial Blood Glucose Arterial Blood Ionized Calcium Urine WBC (Auto) Coronavirus (PCR) SARS-CoV-2 IgG Ab Crossmatch 06/17/20 06/17/20 06/17/20 03:40 04:08 10:54 WBC RBC Hgb Hct MCV MCH MCHC RDW Lymph % (Auto) [place] % (Auto) Lymph # (Auto) [place] # (Auto) Baso # (Auto) Seg Neutrophils % Seg Neuts % (Manual) Lymphocytes % (Manual) Nucleated RBC % Seg Neutrophils # Seg Neutrophils # Man Lymphocytes # (Manual) Monocytes # (Manual) Eosinophils # (Manual) PT INR APTT D-Dimer Heparin Anti-Xa Level ABG pH POC ABG pCO2 65.7 H POC ABG pO2 ABG pO2 ABG HCO3 ABG O2 Saturation ABG Base Excess ABG Hemoglobin 11.9 L ABG Oxyhemoglobin ABG Sodium ABG Potassium ABG Chloride 93.0 L ABG Glucose 244 H Oxyhemoglobin Carboxyhemoglobin Sodium Potassium Chloride Carbon Dioxide BUN Creatinine Glucose POC Glucose 221 H 248 H Lactic Acid Calcium Magnesium Ferritin Total Bilirubin Direct Bilirubin AST ALT Alkaline Phosphatase Lactate Dehydrogenase C-Reactive Protein Total Protein Albumin Triglycerides Lipase Arterial Blood Glucose 244 H Arterial Blood Ionized Calcium Urine WBC (Auto) Coronavirus (PCR) SARS-CoV-2 IgG Ab Crossmatch 06/17/20 06/17/20 06/17/20 17:47 23:11 23:29 WBC RBC Hgb Hct MCV MCH MCHC RDW Lymph % (Auto) [place] % (Auto) Lymph # (Auto) [place] # (Auto) Baso # (Auto) Seg Neutrophils % Seg Neuts % (Manual) Lymphocytes % (Manual) Nucleated RBC % Seg Neutrophils # Seg Neutrophils # Man Lymphocytes # (Manual) Monocytes # (Manual) Eosinophils # (Manual) PT INR APTT D-Dimer Heparin Anti-Xa Level ABG pH POC ABG pCO2 85.2 H POC ABG pO2 48.4 L ABG pO2 ABG HCO3 ABG O2 Saturation ABG Base Excess ABG Hemoglobin 8.0 L ABG Oxyhemoglobin ABG Sodium ABG Potassium ABG Chloride 95.0 L ABG Glucose 292 H Oxyhemoglobin Carboxyhemoglobin Sodium Potassium Chloride Carbon Dioxide BUN Creatinine Glucose POC Glucose 245 H 252 H Lactic Acid Calcium Magnesium Ferritin Total Bilirubin Direct Bilirubin AST ALT Alkaline Phosphatase Lactate Dehydrogenase C-Reactive Protein Total Protein Albumin Triglycerides Lipase Arterial Blood Glucose 292 H Arterial Blood Ionized Calcium Urine WBC (Auto) Coronavirus (PCR) SARS-CoV-2 IgG Ab Crossmatch 06/18/20 06/18/20 06/18/20 03:14 05:34 11:47 WBC RBC Hgb Hct MCV MCH MCHC RDW Lymph % (Auto) [place] % (Auto) Lymph # (Auto) [place] # (Auto) Baso # (Auto) Seg Neutrophils % Seg Neuts % (Manual) Lymphocytes % (Manual) Nucleated RBC % Seg Neutrophils # Seg Neutrophils # Man Lymphocytes # (Manual) Monocytes # (Manual) Eosinophils # (Manual) PT INR APTT D-Dimer Heparin Anti-Xa Level ABG pH POC ABG pCO2 65.4 H POC ABG pO2 160.7 H ABG pO2 ABG HCO3 ABG O2 Saturation ABG Base Excess ABG Hemoglobin 7.8 L ABG Oxyhemoglobin ABG Sodium ABG Potassium ABG Chloride 95.0 L ABG Glucose 251 H Oxyhemoglobin Carboxyhemoglobin Sodium Potassium Chloride Carbon Dioxide BUN Creatinine Glucose POC Glucose 243 H 263 H Lactic Acid Calcium Magnesium Ferritin Total Bilirubin Direct Bilirubin AST ALT Alkaline Phosphatase Lactate Dehydrogenase C-Reactive Protein Total Protein Albumin Triglycerides Lipase Arterial Blood Glucose 251 H Arterial Blood Ionized Calcium Urine WBC (Auto) Coronavirus (PCR) SARS-CoV-2 IgG Ab Crossmatch 06/18/20 06/18/20 06/19/20 17:31 23:33 04:32 WBC RBC Hgb Hct MCV MCH MCHC RDW Lymph % (Auto) [place] % (Auto) Lymph # (Auto) [place] # (Auto) Baso # (Auto) Seg Neutrophils % Seg Neuts % (Manual) Lymphocytes % (Manual) Nucleated RBC % Seg Neutrophils # Seg Neutrophils # Man Lymphocytes # (Manual) Monocytes # (Manual) Eosinophils # (Manual) PT INR APTT D-Dimer Heparin Anti-Xa Level ABG pH POC ABG pCO2 83.1 H POC ABG pO2 65.8 L ABG pO2 ABG HCO3 ABG O2 Saturation ABG Base Excess ABG Hemoglobin 8.9 L ABG Oxyhemoglobin ABG Sodium ABG Potassium ABG Chloride 96.0 L ABG Glucose 297 H Oxyhemoglobin Carboxyhemoglobin Sodium Potassium Chloride Carbon Dioxide BUN Creatinine Glucose POC Glucose 286 H 238 H Lactic Acid Calcium Magnesium Ferritin Total Bilirubin Direct Bilirubin AST ALT Alkaline Phosphatase Lactate Dehydrogenase C-Reactive Protein Total Protein Albumin Triglycerides Lipase Arterial Blood Glucose 297 H Arterial Blood Ionized Calcium Urine WBC (Auto) Coronavirus (PCR) SARS-CoV-2 IgG Ab Crossmatch 06/19/20 06/19/20 06/19/20 05:55 11:20 17:12 WBC RBC Hgb Hct MCV MCH MCHC RDW Lymph % (Auto) [place] % (Auto) Lymph # (Auto) [place] # (Auto) Baso # (Auto) Seg Neutrophils % Seg Neuts % (Manual) Lymphocytes % (Manual) Nucleated RBC % Seg Neutrophils # Seg Neutrophils # Man Lymphocytes # (Manual) Monocytes # (Manual) Eosinophils # (Manual) PT INR APTT D-Dimer Heparin Anti-Xa Level ABG pH POC ABG pCO2 POC ABG pO2 ABG pO2 ABG HCO3 ABG O2 Saturation ABG Base Excess ABG Hemoglobin ABG Oxyhemoglobin ABG Sodium ABG Potassium ABG Chloride ABG Glucose Oxyhemoglobin Carboxyhemoglobin Sodium Potassium Chloride Carbon Dioxide BUN Creatinine Glucose POC Glucose 274 H 282 H 298 H Lactic Acid Calcium Magnesium Ferritin Total Bilirubin Direct Bilirubin AST ALT Alkaline Phosphatase Lactate Dehydrogenase C-Reactive Protein Total Protein Albumin Triglycerides Lipase Arterial Blood Glucose Arterial Blood Ionized Calcium Urine WBC (Auto) Coronavirus (PCR) SARS-CoV-2 IgG Ab Crossmatch 06/19/20 06/20/20 06/20/20 23:08 03:33 06:01 WBC RBC Hgb Hct MCV MCH MCHC RDW Lymph % (Auto) [place] % (Auto) Lymph # (Auto) [place] # (Auto) Baso # (Auto) Seg Neutrophils % Seg Neuts % (Manual) Lymphocytes % (Manual) Nucleated RBC % Seg Neutrophils # Seg Neutrophils # Man Lymphocytes # (Manual) Monocytes # (Manual) Eosinophils # (Manual) PT INR APTT D-Dimer Heparin Anti-Xa Level ABG pH POC ABG pCO2 POC ABG pO2 ABG pO2 69.9 L ABG HCO3 50.8 H ABG O2 Saturation ABG Base Excess 24.2 H ABG Hemoglobin 5.8 L ABG Oxyhemoglobin ABG Sodium ABG Potassium ABG Chloride ABG Glucose Oxyhemoglobin Carboxyhemoglobin Sodium Potassium Chloride Carbon Dioxide BUN Creatinine Glucose POC Glucose 293 H 182 H Lactic Acid Calcium Magnesium Ferritin Total Bilirubin Direct Bilirubin AST ALT Alkaline Phosphatase Lactate Dehydrogenase C-Reactive Protein Total Protein Albumin Triglycerides Lipase Arterial Blood Glucose Arterial Blood Ionized Calcium Urine WBC (Auto) Coronavirus (PCR) SARS-CoV-2 IgG Ab Crossmatch 06/20/20 06/20/20 06/20/20 11:47 17:46 23:37 WBC RBC Hgb Hct MCV MCH MCHC RDW Lymph % (Auto) [place] % (Auto) Lymph # (Auto) [place] # (Auto) Baso # (Auto) Seg Neutrophils % Seg Neuts % (Manual) Lymphocytes % (Manual) Nucleated RBC % Seg Neutrophils # Seg Neutrophils # Man Lymphocytes # (Manual) Monocytes # (Manual) Eosinophils # (Manual) PT INR APTT D-Dimer Heparin Anti-Xa Level ABG pH POC ABG pCO2 POC ABG pO2 ABG pO2 ABG HCO3 ABG O2 Saturation ABG Base Excess ABG Hemoglobin ABG Oxyhemoglobin ABG Sodium ABG Potassium ABG Chloride ABG Glucose Oxyhemoglobin Carboxyhemoglobin Sodium Potassium Chloride Carbon Dioxide BUN Creatinine Glucose POC Glucose 170 H 215 H 256 H Lactic Acid Calcium Magnesium Ferritin Total Bilirubin Direct Bilirubin AST ALT Alkaline Phosphatase Lactate Dehydrogenase C-Reactive Protein Total Protein Albumin Triglycerides Lipase Arterial Blood Glucose Arterial Blood Ionized Calcium Urine WBC (Auto) Coronavirus (PCR) SARS-CoV-2 IgG Ab Crossmatch 06/21/20 06/21/20 06/21/20 04:00 05:14 05:51 WBC RBC Hgb Hct MCV MCH MCHC RDW Lymph % (Auto) [place] % (Auto) Lymph # (Auto) [place] # (Auto) Baso # (Auto) Seg Neutrophils % Seg Neuts % (Manual) Lymphocytes % (Manual) Nucleated RBC % Seg Neutrophils # Seg Neutrophils # Man Lymphocytes # (Manual) Monocytes # (Manual) Eosinophils # (Manual) PT INR APTT D-Dimer Heparin Anti-Xa Level ABG pH 7.474 H POC ABG pCO2 POC ABG pO2 ABG pO2 ABG HCO3 52.1 H ABG O2 Saturation ABG Base Excess 23.3 H ABG Hemoglobin 5.3 L ABG Oxyhemoglobin ABG Sodium ABG Potassium ABG Chloride ABG Glucose Oxyhemoglobin 93.8 L Carboxyhemoglobin Sodium Potassium Chloride Carbon Dioxide BUN Creatinine Glucose POC Glucose 122 H 129 H Lactic Acid Calcium Magnesium Ferritin Total Bilirubin Direct Bilirubin AST ALT Alkaline Phosphatase Lactate Dehydrogenase C-Reactive Protein Total Protein Albumin Triglycerides Lipase Arterial Blood Glucose Arterial Blood Ionized Calcium Urine WBC (Auto) Coronavirus (PCR) SARS-CoV-2 IgG Ab Crossmatch 06/21/20 06/21/20 06/21/20 11:00 11:00 11:42 WBC 14.2 H RBC 1.85 L Hgb 6.2 L Hct 19.5 L* MCV 105 H MCH 34 H MCHC RDW 18.0 H Lymph % (Auto) [place] % (Auto) Lymph # (Auto) [place] # (Auto) Baso # (Auto) Seg Neutrophils % Seg Neuts % (Manual) Lymphocytes % (Manual) Nucleated RBC % Seg Neutrophils # Seg Neutrophils # Man Lymphocytes # (Manual) Monocytes # (Manual) Eosinophils # (Manual) PT INR APTT D-Dimer Heparin Anti-Xa Level ABG pH POC ABG pCO2 POC ABG pO2 ABG pO2 ABG HCO3 ABG O2 Saturation ABG Base Excess ABG Hemoglobin ABG Oxyhemoglobin ABG Sodium ABG Potassium ABG Chloride ABG Glucose Oxyhemoglobin Carboxyhemoglobin Sodium 147 H Potassium Chloride Carbon Dioxide 51 H* BUN 31 H Creatinine 0.5 L Glucose 224 H POC Glucose 217 H Lactic Acid Calcium Magnesium Ferritin Total Bilirubin Direct Bilirubin AST ALT Alkaline Phosphatase Lactate Dehydrogenase C-Reactive Protein Total Protein Albumin Triglycerides Lipase Arterial Blood Glucose Arterial Blood Ionized Calcium Urine WBC (Auto) Coronavirus (PCR) SARS-CoV-2 IgG Ab Crossmatch 06/21/20 06/21/20 06/21/20 14:18 14:30 18:36 WBC RBC Hgb Hct MCV MCH MCHC RDW Lymph % (Auto) [place] % (Auto) Lymph # (Auto) [place] # (Auto) Baso # (Auto) Seg Neutrophils % Seg Neuts % (Manual) Lymphocytes % (Manual) Nucleated RBC % Seg Neutrophils # Seg Neutrophils # Man Lymphocytes # (Manual) Monocytes # (Manual) Eosinophils # (Manual) PT 15.1 H INR 1.19 H APTT D-Dimer Heparin Anti-Xa Level ABG pH POC ABG pCO2 POC ABG pO2 ABG pO2 ABG HCO3 ABG O2 Saturation ABG Base Excess ABG Hemoglobin ABG Oxyhemoglobin ABG Sodium ABG Potassium ABG Chloride ABG Glucose Oxyhemoglobin Carboxyhemoglobin Sodium Potassium Chloride Carbon Dioxide BUN Creatinine Glucose POC Glucose 185 H Lactic Acid Calcium Magnesium Ferritin Total Bilirubin Direct Bilirubin AST ALT Alkaline Phosphatase Lactate Dehydrogenase C-Reactive Protein Total Protein Albumin Triglycerides Lipase Arterial Blood Glucose Arterial Blood Ionized Calcium Urine WBC (Auto) Coronavirus (PCR) SARS-CoV-2 IgG Ab Crossmatch See Detail 06/21/20 06/22/20 06/22/20 21:14 03:50 04:00 WBC RBC Hgb Hct MCV MCH MCHC RDW Lymph % (Auto) [place] % (Auto) Lymph # (Auto) [place] # (Auto) Baso # (Auto) Seg Neutrophils % Seg Neuts % (Manual) Lymphocytes % (Manual) Nucleated RBC % Seg Neutrophils # Seg Neutrophils # Man Lymphocytes # (Manual) Monocytes # (Manual) Eosinophils # (Manual) PT INR APTT D-Dimer Heparin Anti-Xa Level ABG pH 7.451 H POC ABG pCO2 POC ABG pO2 ABG pO2 ABG HCO3 47.5 H ABG O2 Saturation ABG Base Excess 22.0 H ABG Hemoglobin < 5.1 L ABG Oxyhemoglobin ABG Sodium ABG Potassium ABG Chloride ABG Glucose Oxyhemoglobin 94.1 L Carboxyhemoglobin Sodium 149 H Potassium 3.5 L Chloride Carbon Dioxide 42 H* D BUN 34 H Creatinine 0.4 L Glucose 219 H POC Glucose 250 H Lactic Acid Calcium Magnesium Ferritin Total Bilirubin Direct Bilirubin AST ALT Alkaline Phosphatase Lactate Dehydrogenase C-Reactive Protein Total Protein Albumin Triglycerides Lipase Arterial Blood Glucose Arterial Blood Ionized Calcium Urine WBC (Auto) Coronavirus (PCR) SARS-CoV-2 IgG Ab Crossmatch 06/22/20 06/22/20 06/22/20 12:16 14:29 17:56 WBC RBC Hgb Hct MCV MCH MCHC RDW Lymph % (Auto) [place] % (Auto) Lymph # (Auto) [place] # (Auto) Baso # (Auto) Seg Neutrophils % Seg Neuts % (Manual) Lymphocytes % (Manual) Nucleated RBC % Seg Neutrophils # Seg Neutrophils # Man Lymphocytes # (Manual) Monocytes # (Manual) Eosinophils # (Manual) PT 11.8 L INR APTT 23.5 L D-Dimer Heparin Anti-Xa Level ABG pH POC ABG pCO2 POC ABG pO2 ABG pO2 ABG HCO3 ABG O2 Saturation ABG Base Excess ABG Hemoglobin ABG Oxyhemoglobin ABG Sodium ABG Potassium ABG Chloride ABG Glucose Oxyhemoglobin Carboxyhemoglobin Sodium Potassium Chloride Carbon Dioxide BUN Creatinine Glucose POC Glucose 215 H 215 H Lactic Acid Calcium Magnesium Ferritin Total Bilirubin Direct Bilirubin AST ALT Alkaline Phosphatase Lactate Dehydrogenase C-Reactive Protein Total Protein Albumin Triglycerides Lipase Arterial Blood Glucose Arterial Blood Ionized Calcium Urine WBC (Auto) Coronavirus (PCR) SARS-CoV-2 IgG Ab Crossmatch 06/22/20 06/22/20 06/22/20 23:36 23:45 Unknown WBC 14.1 H RBC 2.70 L Hgb 8.9 L 8.9 L Hct 26.9 L 27.2 L D MCV 101 H MCH 33 H MCHC RDW 17.7 H Lymph % (Auto) [place] % (Auto) Lymph # (Auto) [place] # (Auto) Baso # (Auto) Seg Neutrophils % Seg Neuts % (Manual) 92.0 H Lymphocytes % (Manual) 5.0 L Nucleated RBC % Seg Neutrophils # Seg Neutrophils # Man 13.0 H Lymphocytes # (Manual) 0.7 L Monocytes # (Manual) Eosinophils # (Manual) PT INR APTT D-Dimer Heparin Anti-Xa Level ABG pH POC ABG pCO2 POC ABG pO2 ABG pO2 ABG HCO3 ABG O2 Saturation ABG Base Excess ABG Hemoglobin ABG Oxyhemoglobin ABG Sodium ABG Potassium ABG Chloride ABG Glucose Oxyhemoglobin Carboxyhemoglobin Sodium Potassium Chloride Carbon Dioxide BUN Creatinine Glucose POC Glucose 208 H Lactic Acid Calcium Magnesium Ferritin Total Bilirubin Direct Bilirubin AST ALT Alkaline Phosphatase Lactate Dehydrogenase C-Reactive Protein Total Protein Albumin Triglycerides Lipase Arterial Blood Glucose Arterial Blood Ionized Calcium Urine WBC (Auto) Coronavirus (PCR) SARS-CoV-2 IgG Ab Crossmatch 06/23/20 06/23/20 06/23/20 05:17 05:19 06:50 WBC RBC Hgb Hct MCV MCH MCHC RDW Lymph % (Auto) [place] % (Auto) Lymph # (Auto) [place] # (Auto) Baso # (Auto) Seg Neutrophils % Seg Neuts % (Manual) Lymphocytes % (Manual) Nucleated RBC % Seg Neutrophils # Seg Neutrophils # Man Lymphocytes # (Manual) Monocytes # (Manual) Eosinophils # (Manual) PT INR APTT D-Dimer Heparin Anti-Xa Level ABG pH POC ABG pCO2 69.7 H POC ABG pO2 63.3 L ABG pO2 ABG HCO3 ABG O2 Saturation ABG Base Excess ABG Hemoglobin 10.1 L ABG Oxyhemoglobin ABG Sodium ABG Potassium 3.3 L ABG Chloride ABG Glucose 226 H Oxyhemoglobin Carboxyhemoglobin Sodium Potassium 3.0 L Chloride Carbon Dioxide 41 H* BUN 26 H Creatinine 0.4 L Glucose 209 H POC Glucose 200 H Lactic Acid Calcium Magnesium Ferritin Total Bilirubin Direct Bilirubin AST ALT Alkaline Phosphatase Lactate Dehydrogenase C-Reactive Protein Total Protein Albumin 2.9 L Triglycerides Lipase Arterial Blood Glucose 226 H Arterial Blood Ionized Calcium Urine WBC (Auto) Coronavirus (PCR) SARS-CoV-2 IgG Ab Crossmatch 06/23/20 06/23/20 06/23/20 09:41 12:04 18:16 WBC RBC Hgb 9.1 L Hct 28.0 L MCV MCH MCHC RDW Lymph % (Auto) [place] % (Auto) Lymph # (Auto) [place] # (Auto) Baso # (Auto) Seg Neutrophils % Seg Neuts % (Manual) Lymphocytes % (Manual) Nucleated RBC % Seg Neutrophils # Seg Neutrophils # Man Lymphocytes # (Manual) Monocytes # (Manual) Eosinophils # (Manual) PT INR APTT D-Dimer Heparin Anti-Xa Level ABG pH POC ABG pCO2 POC ABG pO2 ABG pO2 ABG HCO3 ABG O2 Saturation ABG Base Excess ABG Hemoglobin ABG Oxyhemoglobin ABG Sodium ABG Potassium ABG Chloride ABG Glucose Oxyhemoglobin Carboxyhemoglobin Sodium Potassium Chloride Carbon Dioxide BUN Creatinine Glucose POC Glucose 146 H 162 H Lactic Acid Calcium Magnesium Ferritin Total Bilirubin Direct Bilirubin AST ALT Alkaline Phosphatase Lactate Dehydrogenase C-Reactive Protein Total Protein Albumin Triglycerides Lipase Arterial Blood Glucose Arterial Blood Ionized Calcium Urine WBC (Auto) Coronavirus (PCR) SARS-CoV-2 IgG Ab Crossmatch 06/23/20 06/23/20 06/24/20 23:24 23:41 02:39 WBC RBC Hgb 8.2 L 8.8 L Hct 24.9 L 26.8 L MCV MCH MCHC RDW Lymph % (Auto) [place] % (Auto) Lymph # (Auto) [place] # (Auto) Baso # (Auto) Seg Neutrophils % Seg Neuts % (Manual) Lymphocytes % (Manual) Nucleated RBC % Seg Neutrophils # Seg Neutrophils # Man Lymphocytes # (Manual) Monocytes # (Manual) Eosinophils # (Manual) PT INR APTT D-Dimer Heparin Anti-Xa Level ABG pH POC ABG pCO2 POC ABG pO2 ABG pO2 ABG HCO3 ABG O2 Saturation ABG Base Excess ABG Hemoglobin ABG Oxyhemoglobin ABG Sodium ABG Potassium ABG Chloride ABG Glucose Oxyhemoglobin Carboxyhemoglobin Sodium Potassium Chloride Carbon Dioxide BUN Creatinine Glucose POC Glucose 248 H Lactic Acid Calcium Magnesium Ferritin Total Bilirubin Direct Bilirubin AST ALT Alkaline Phosphatase Lactate Dehydrogenase C-Reactive Protein Total Protein Albumin Triglycerides Lipase Arterial Blood Glucose Arterial Blood Ionized Calcium Urine WBC (Auto) Coronavirus (PCR) SARS-CoV-2 IgG Ab Crossmatch 06/24/20 06/24/20 06/24/20 02:39 02:45 05:31 WBC RBC Hgb Hct MCV MCH MCHC RDW Lymph % (Auto) [place] % (Auto) Lymph # (Auto) [place] # (Auto) Baso # (Auto) Seg Neutrophils % Seg Neuts % (Manual) Lymphocytes % (Manual) Nucleated RBC % Seg Neutrophils # Seg Neutrophils # Man Lymphocytes # (Manual) Monocytes # (Manual) Eosinophils # (Manual) PT INR APTT D-Dimer Heparin Anti-Xa Level ABG pH POC ABG pCO2 66.9 H POC ABG pO2 109.7 H ABG pO2 ABG HCO3 ABG O2 Saturation ABG Base Excess ABG Hemoglobin 9.7 L ABG Oxyhemoglobin ABG Sodium 135.0 L ABG Potassium ABG Chloride 97.0 L ABG Glucose 277 H Oxyhemoglobin Carboxyhemoglobin Sodium 136 L Potassium Chloride 95.0 L Carbon Dioxide 34 H D BUN 24 H Creatinine 0.3 L Glucose 260 H POC Glucose 164 H Lactic Acid Calcium Magnesium Ferritin Total Bilirubin Direct Bilirubin AST ALT Alkaline Phosphatase Lactate Dehydrogenase C-Reactive Protein Total Protein 5.2 L Albumin 2.6 L Triglycerides Lipase Arterial Blood Glucose 277 H Arterial Blood Ionized Calcium Urine WBC (Auto) Coronavirus (PCR) SARS-CoV-2 IgG Ab Crossmatch 06/24/20 06/24/20 06/24/20 10:00 11:49 17:39 WBC RBC Hgb 8.9 L Hct 26.5 L MCV MCH MCHC RDW Lymph % (Auto) [place] % (Auto) Lymph # (Auto) [place] # (Auto) Baso # (Auto) Seg Neutrophils % Seg Neuts % (Manual) Lymphocytes % (Manual) Nucleated RBC % Seg Neutrophils # Seg Neutrophils # Man Lymphocytes # (Manual) Monocytes # (Manual) Eosinophils # (Manual) PT INR APTT D-Dimer Heparin Anti-Xa Level ABG pH POC ABG pCO2 POC ABG pO2 ABG pO2 ABG HCO3 ABG O2 Saturation ABG Base Excess ABG Hemoglobin ABG Oxyhemoglobin ABG Sodium ABG Potassium ABG Chloride ABG Glucose Oxyhemoglobin Carboxyhemoglobin Sodium Potassium Chloride Carbon Dioxide BUN Creatinine Glucose POC Glucose 198 H 223 H Lactic Acid Calcium Magnesium Ferritin Total Bilirubin Direct Bilirubin AST ALT Alkaline Phosphatase Lactate Dehydrogenase C-Reactive Protein Total Protein Albumin Triglycerides Lipase Arterial Blood Glucose Arterial Blood Ionized Calcium Urine WBC (Auto) Coronavirus (PCR) SARS-CoV-2 IgG Ab Crossmatch 06/24/20 06/25/20 06/25/20 23:56 02:16 04:08 WBC RBC Hgb Hct MCV MCH MCHC RDW Lymph % (Auto) [place] % (Auto) Lymph # (Auto) [place] # (Auto) Baso # (Auto) Seg Neutrophils % Seg Neuts % (Manual) Lymphocytes % (Manual) Nucleated RBC % Seg Neutrophils # Seg Neutrophils # Man Lymphocytes # (Manual) Monocytes # (Manual) Eosinophils # (Manual) PT INR APTT D-Dimer Heparin Anti-Xa Level ABG pH 7.454 H POC ABG pCO2 56.9 H POC ABG pO2 61.0 L ABG pO2 ABG HCO3 ABG O2 Saturation ABG Base Excess ABG Hemoglobin ABG Oxyhemoglobin ABG Sodium 134.3 L ABG Potassium ABG Chloride 92.0 L ABG Glucose 246 H Oxyhemoglobin Carboxyhemoglobin Sodium 134 L Potassium Chloride 89.7 L Carbon Dioxide 36 H BUN Creatinine 0.3 L Glucose 254 H POC Glucose 225 H Lactic Acid Calcium Magnesium Ferritin Total Bilirubin Direct Bilirubin AST ALT Alkaline Phosphatase Lactate Dehydrogenase C-Reactive Protein Total Protein Albumin 2.9 L Triglycerides Lipase Arterial Blood Glucose 246 H Arterial Blood Ionized Calcium Urine WBC (Auto) Coronavirus (PCR) SARS-CoV-2 IgG Ab Crossmatch 06/25/20 06/25/20 06/25/20 05:44 11:35 17:33 WBC RBC Hgb Hct MCV MCH MCHC RDW Lymph % (Auto) [place] % (Auto) Lymph # (Auto) [place] # (Auto) Baso # (Auto) Seg Neutrophils % Seg Neuts % (Manual) Lymphocytes % (Manual) Nucleated RBC % Seg Neutrophils # Seg Neutrophils # Man Lymphocytes # (Manual) Monocytes # (Manual) Eosinophils # (Manual) PT INR APTT D-Dimer Heparin Anti-Xa Level ABG pH POC ABG pCO2 POC ABG pO2 ABG pO2 ABG HCO3 ABG O2 Saturation ABG Base Excess ABG Hemoglobin ABG Oxyhemoglobin ABG Sodium ABG Potassium ABG Chloride ABG Glucose Oxyhemoglobin Carboxyhemoglobin Sodium Potassium Chloride Carbon Dioxide BUN Creatinine Glucose POC Glucose 170 H 175 H 229 H Lactic Acid Calcium Magnesium Ferritin Total Bilirubin Direct Bilirubin AST ALT Alkaline Phosphatase Lactate Dehydrogenase C-Reactive Protein Total Protein Albumin Triglycerides Lipase Arterial Blood Glucose Arterial Blood Ionized Calcium Urine WBC (Auto) Coronavirus (PCR) SARS-CoV-2 IgG Ab Crossmatch 06/25/20 06/26/20 06/26/20 23:55 02:17 02:17 WBC RBC Hgb 10.0 L Hct 30.4 L MCV MCH MCHC RDW Lymph % (Auto) [place] % (Auto) Lymph # (Auto) [place] # (Auto) Baso # (Auto) Seg Neutrophils % Seg Neuts % (Manual) Lymphocytes % (Manual) Nucleated RBC % Seg Neutrophils # Seg Neutrophils # Man Lymphocytes # (Manual) Monocytes # (Manual) Eosinophils # (Manual) PT INR APTT D-Dimer Heparin Anti-Xa Level ABG pH POC ABG pCO2 POC ABG pO2 ABG pO2 ABG HCO3 ABG O2 Saturation ABG Base Excess ABG Hemoglobin ABG Oxyhemoglobin ABG Sodium ABG Potassium ABG Chloride ABG Glucose Oxyhemoglobin Carboxyhemoglobin Sodium 136 L Potassium Chloride 90.1 L Carbon Dioxide 39 H BUN Creatinine 0.2 L Glucose 232 H POC Glucose 192 H Lactic Acid Calcium Magnesium Ferritin Total Bilirubin Direct Bilirubin AST ALT Alkaline Phosphatase Lactate Dehydrogenase C-Reactive Protein Total Protein 6.1 L Albumin 2.9 L Triglycerides Lipase Arterial Blood Glucose Arterial Blood Ionized Calcium Urine WBC (Auto) Coronavirus (PCR) SARS-CoV-2 IgG Ab Crossmatch 06/26/20 06/26/20 06/26/20 04:15 04:49 05:28 WBC RBC Hgb Hct MCV MCH MCHC RDW Lymph % (Auto) [place] % (Auto) Lymph # (Auto) [place] # (Auto) Baso # (Auto) Seg Neutrophils % Seg Neuts % (Manual) Lymphocytes % (Manual) Nucleated RBC % Seg Neutrophils # Seg Neutrophils # Man Lymphocytes # (Manual) Monocytes # (Manual) Eosinophils # (Manual) PT INR APTT D-Dimer Heparin Anti-Xa Level ABG pH 7.453 H POC ABG pCO2 59.6 H POC ABG pO2 ABG pO2 ABG HCO3 ABG O2 Saturation ABG Base Excess ABG Hemoglobin 10.0 L ABG Oxyhemoglobin ABG Sodium 134.2 L ABG Potassium 3.3 L ABG Chloride 92.0 L ABG Glucose 305 H Oxyhemoglobin Carboxyhemoglobin Sodium Potassium Chloride Carbon Dioxide BUN Creatinine Glucose POC Glucose 234 H Lactic Acid Calcium Magnesium Ferritin Total Bilirubin Direct Bilirubin AST ALT Alkaline Phosphatase Lactate Dehydrogenase C-Reactive Protein Total Protein Albumin Triglycerides 203 H Lipase Arterial Blood Glucose 305 H Arterial Blood Ionized Calcium Urine WBC (Auto) Coronavirus (PCR) SARS-CoV-2 IgG Ab Crossmatch 06/26/20 06/26/20 06/26/20 11:58 17:58 21:32 WBC RBC Hgb Hct MCV MCH MCHC RDW Lymph % (Auto) [place] % (Auto) Lymph # (Auto) [place] # (Auto) Baso # (Auto) Seg Neutrophils % Seg Neuts % (Manual) Lymphocytes % (Manual) Nucleated RBC % Seg Neutrophils # Seg Neutrophils # Man Lymphocytes # (Manual) Monocytes # (Manual) Eosinophils # (Manual) PT INR APTT D-Dimer Heparin Anti-Xa Level ABG pH POC ABG pCO2 POC ABG pO2 ABG pO2 ABG HCO3 ABG O2 Saturation ABG Base Excess ABG Hemoglobin ABG Oxyhemoglobin ABG Sodium ABG Potassium ABG Chloride ABG Glucose Oxyhemoglobin Carboxyhemoglobin Sodium Potassium Chloride Carbon Dioxide BUN Creatinine Glucose POC Glucose 198 H 193 H 191 H Lactic Acid Calcium Magnesium Ferritin Total Bilirubin Direct Bilirubin AST ALT Alkaline Phosphatase Lactate Dehydrogenase C-Reactive Protein Total Protein Albumin Triglycerides Lipase Arterial Blood Glucose Arterial Blood Ionized Calcium Urine WBC (Auto) Coronavirus (PCR) SARS-CoV-2 IgG Ab Crossmatch 06/26/20 06/27/20 06/27/20 23:40 04:35 05:32 WBC RBC Hgb Hct MCV MCH MCHC RDW Lymph % (Auto) [place] % (Auto) Lymph # (Auto) [place] # (Auto) Baso # (Auto) Seg Neutrophils % Seg Neuts % (Manual) Lymphocytes % (Manual) Nucleated RBC % Seg Neutrophils # Seg Neutrophils # Man Lymphocytes # (Manual) Monocytes # (Manual) Eosinophils # (Manual) PT INR APTT D-Dimer Heparin Anti-Xa Level ABG pH 7.464 H POC ABG pCO2 60.8 H POC ABG pO2 ABG pO2 ABG HCO3 ABG O2 Saturation ABG Base Excess ABG Hemoglobin 10.1 L ABG Oxyhemoglobin ABG Sodium ABG Potassium 2.9 L ABG Chloride 92.0 L ABG Glucose 298 H Oxyhemoglobin Carboxyhemoglobin Sodium Potassium Chloride Carbon Dioxide BUN Creatinine Glucose POC Glucose 241 H 211 H Lactic Acid Calcium Magnesium Ferritin Total Bilirubin Direct Bilirubin AST ALT Alkaline Phosphatase Lactate Dehydrogenase C-Reactive Protein Total Protein Albumin Triglycerides Lipase Arterial Blood Glucose 298 H Arterial Blood Ionized Calcium Urine WBC (Auto) Coronavirus (PCR) SARS-CoV-2 IgG Ab Crossmatch 06/27/20 06/27/20 06/27/20 12:37 18:08 20:52 WBC RBC Hgb Hct MCV MCH MCHC RDW Lymph % (Auto) [place] % (Auto) Lymph # (Auto) [place] # (Auto) Baso # (Auto) Seg Neutrophils % Seg Neuts % (Manual) Lymphocytes % (Manual) Nucleated RBC % Seg Neutrophils # Seg Neutrophils # Man Lymphocytes # (Manual) Monocytes # (Manual) Eosinophils # (Manual) PT INR APTT D-Dimer Heparin Anti-Xa Level ABG pH POC ABG pCO2 POC ABG pO2 ABG pO2 ABG HCO3 ABG O2 Saturation ABG Base Excess ABG Hemoglobin ABG Oxyhemoglobin ABG Sodium ABG Potassium ABG Chloride ABG Glucose Oxyhemoglobin Carboxyhemoglobin Sodium Potassium Chloride Carbon Dioxide BUN Creatinine Glucose POC Glucose 182 H 197 H 195 H Lactic Acid Calcium Magnesium Ferritin Total Bilirubin Direct Bilirubin AST ALT Alkaline Phosphatase Lactate Dehydrogenase C-Reactive Protein Total Protein Albumin Triglycerides Lipase Arterial Blood Glucose Arterial Blood Ionized Calcium Urine WBC (Auto) Coronavirus (PCR) SARS-CoV-2 IgG Ab Crossmatch 06/27/20 06/28/20 06/28/20 Unknown 04:17 04:50 WBC RBC Hgb Hct MCV MCH MCHC RDW Lymph % (Auto) [place] % (Auto) Lymph # (Auto) [place] # (Auto) Baso # (Auto) Seg Neutrophils % Seg Neuts % (Manual) Lymphocytes % (Manual) Nucleated RBC % Seg Neutrophils # Seg Neutrophils # Man Lymphocytes # (Manual) Monocytes # (Manual) Eosinophils # (Manual) PT INR APTT D-Dimer Heparin Anti-Xa Level ABG pH POC ABG pCO2 58.6 H POC ABG pO2 60.1 L ABG pO2 ABG HCO3 ABG O2 Saturation ABG Base Excess ABG Hemoglobin 10.0 L ABG Oxyhemoglobin ABG Sodium 125.3 L ABG Potassium ABG Chloride 93.0 L ABG Glucose 308 H Oxyhemoglobin Carboxyhemoglobin Sodium Potassium 2.9 L* Chloride 93.4 L Carbon Dioxide 42 H* BUN Creatinine 0.3 L Glucose 211 H POC Glucose 252 H Lactic Acid Calcium 8.1 L Magnesium Ferritin Total Bilirubin Direct Bilirubin AST ALT Alkaline Phosphatase Lactate Dehydrogenase C-Reactive Protein Total Protein 5.1 L Albumin 2.4 L Triglycerides Lipase Arterial Blood Glucose 308 H Arterial Blood Ionized Calcium Urine WBC (Auto) Coronavirus (PCR) SARS-CoV-2 IgG Ab Crossmatch 06/28/20 06/28/20 06/28/20 06:35 06:35 11:36 WBC 18.9 H RBC 2.85 L Hgb 9.5 L Hct 28.4 L MCV 100 H MCH 33 H MCHC RDW 17.3 H Lymph % (Auto) [place] % (Auto) Lymph # (Auto) [place] # (Auto) Baso # (Auto) Seg Neutrophils % 88.6 H Seg Neuts % (Manual) 95.0 H Lymphocytes % (Manual) 1.0 L Nucleated RBC % Seg Neutrophils # 15.9 H Seg Neutrophils # Man 18.0 H Lymphocytes # (Manual) 0.2 L Monocytes # (Manual) Eosinophils # (Manual) PT INR APTT D-Dimer Heparin Anti-Xa Level ABG pH POC ABG pCO2 POC ABG pO2 ABG pO2 ABG HCO3 ABG O2 Saturation ABG Base Excess ABG Hemoglobin ABG Oxyhemoglobin ABG Sodium ABG Potassium ABG Chloride ABG Glucose Oxyhemoglobin Carboxyhemoglobin Sodium Potassium Chloride 94.2 L Carbon Dioxide 38 H BUN Creatinine 0.3 L Glucose 228 H POC Glucose 243 H Lactic Acid Calcium Magnesium Ferritin Total Bilirubin Direct Bilirubin AST ALT Alkaline Phosphatase Lactate Dehydrogenase C-Reactive Protein Total Protein 6.1 L Albumin 2.7 L Triglycerides Lipase Arterial Blood Glucose Arterial Blood Ionized Calcium Urine WBC (Auto) Coronavirus (PCR) SARS-CoV-2 IgG Ab Crossmatch 06/28/20 06/28/20 06/29/20 16:53 21:10 00:06 WBC RBC Hgb Hct MCV MCH MCHC RDW Lymph % (Auto) [place] % (Auto) Lymph # (Auto) [place] # (Auto) Baso # (Auto) Seg Neutrophils % Seg Neuts % (Manual) Lymphocytes % (Manual) Nucleated RBC % Seg Neutrophils # Seg Neutrophils # Man Lymphocytes # (Manual) Monocytes # (Manual) Eosinophils # (Manual) PT INR APTT D-Dimer Heparin Anti-Xa Level ABG pH POC ABG pCO2 POC ABG pO2 ABG pO2 ABG HCO3 ABG O2 Saturation ABG Base Excess ABG Hemoglobin ABG Oxyhemoglobin ABG Sodium ABG Potassium ABG Chloride ABG Glucose Oxyhemoglobin Carboxyhemoglobin Sodium Potassium Chloride Carbon Dioxide BUN Creatinine Glucose POC Glucose 211 H 195 H 200 H Lactic Acid Calcium Magnesium Ferritin Total Bilirubin Direct Bilirubin AST ALT Alkaline Phosphatase Lactate Dehydrogenase C-Reactive Protein Total Protein Albumin Triglycerides Lipase Arterial Blood Glucose Arterial Blood Ionized Calcium Urine WBC (Auto) Coronavirus (PCR) SARS-CoV-2 IgG Ab Crossmatch 06/29/20 06/29/20 06/29/20 03:11 04:00 04:00 WBC 18.8 H RBC 2.82 L Hgb 10.1 L Hct 28.5 L MCV 101 H MCH 36 H MCHC 36 H RDW 17.5 H Lymph % (Auto) 10.7 L [place] % (Auto) Lymph # (Auto) [place] # (Auto) 1.0 H Baso # (Auto) 0.3 H Seg Neutrophils % 82.2 H Seg Neuts % (Manual) Lymphocytes % (Manual) Nucleated RBC % Seg Neutrophils # 15.5 H Seg Neutrophils # Man Lymphocytes # (Manual) Monocytes # (Manual) Eosinophils # (Manual) PT INR APTT D-Dimer Heparin Anti-Xa Level ABG pH POC ABG pCO2 57.5 H POC ABG pO2 69.1 L ABG pO2 ABG HCO3 ABG O2 Saturation ABG Base Excess ABG Hemoglobin 10.2 L ABG Oxyhemoglobin 92.3 L ABG Sodium 130.7 L ABG Potassium 3.2 L ABG Chloride 93.0 L ABG Glucose 228 H Oxyhemoglobin Carboxyhemoglobin Sodium 134 L Potassium 3.3 L Chloride 89.5 L Carbon Dioxide 40 H BUN Creatinine 0.2 L Glucose 190 H POC Glucose Lactic Acid Calcium Magnesium Ferritin Total Bilirubin Direct Bilirubin AST < 5 L ALT < 5 L Alkaline Phosphatase Lactate Dehydrogenase C-Reactive Protein Total Protein 5.9 L Albumin 2.2 L Triglycerides Lipase Arterial Blood Glucose 228 H Arterial Blood Ionized Calcium Urine WBC (Auto) Coronavirus (PCR) SARS-CoV-2 IgG Ab Crossmatch 06/29/20 06/29/20 06/29/20 05:00 05:23 09:36 WBC RBC Hgb Hct MCV MCH MCHC RDW Lymph % (Auto) [place] % (Auto) Lymph # (Auto) [place] # (Auto) Baso # (Auto) Seg Neutrophils % Seg Neuts % (Manual) Lymphocytes % (Manual) Nucleated RBC % Seg Neutrophils # Seg Neutrophils # Man Lymphocytes # (Manual) Monocytes # (Manual) Eosinophils # (Manual) PT INR APTT D-Dimer Heparin Anti-Xa Level ABG pH POC ABG pCO2 POC ABG pO2 ABG pO2 ABG HCO3 ABG O2 Saturation ABG Base Excess ABG Hemoglobin ABG Oxyhemoglobin ABG Sodium ABG Potassium ABG Chloride ABG Glucose Oxyhemoglobin Carboxyhemoglobin Sodium Potassium Chloride Carbon Dioxide BUN Creatinine Glucose POC Glucose 165 H Lactic Acid Calcium Magnesium Ferritin Total Bilirubin Direct Bilirubin AST ALT Alkaline Phosphatase Lactate Dehydrogenase C-Reactive Protein Total Protein Albumin Triglycerides 1544 H 1799 H Lipase Arterial Blood Glucose Arterial Blood Ionized Calcium Urine WBC (Auto) Coronavirus (PCR) SARS-CoV-2 IgG Ab Crossmatch 06/29/20 06/29/20 06/29/20 09:36 12:02 18:00 WBC RBC Hgb Hct MCV MCH MCHC RDW Lymph % (Auto) [place] % (Auto) Lymph # (Auto) [place] # (Auto) Baso # (Auto) Seg Neutrophils % Seg Neuts % (Manual) Lymphocytes % (Manual) Nucleated RBC % Seg Neutrophils # Seg Neutrophils # Man Lymphocytes # (Manual) Monocytes # (Manual) Eosinophils # (Manual) PT INR APTT D-Dimer Heparin Anti-Xa Level ABG pH POC ABG pCO2 POC ABG pO2 ABG pO2 ABG HCO3 ABG O2 Saturation ABG Base Excess ABG Hemoglobin ABG Oxyhemoglobin ABG Sodium ABG Potassium ABG Chloride ABG Glucose Oxyhemoglobin Carboxyhemoglobin Sodium Potassium Chloride Carbon Dioxide BUN Creatinine Glucose POC Glucose 197 H 187 H Lactic Acid Calcium Magnesium Ferritin Total Bilirubin Direct Bilirubin AST ALT Alkaline Phosphatase Lactate Dehydrogenase C-Reactive Protein Total Protein Albumin Triglycerides Lipase 86 H Arterial Blood Glucose Arterial Blood Ionized Calcium Urine WBC (Auto) Coronavirus (PCR) SARS-CoV-2 IgG Ab Crossmatch 06/29/20 06/30/20 06/30/20 23:33 03:46 05:50 WBC RBC Hgb Hct MCV MCH MCHC RDW Lymph % (Auto) [place] % (Auto) Lymph # (Auto) [place] # (Auto) Baso # (Auto) Seg Neutrophils % Seg Neuts % (Manual) Lymphocytes % (Manual) Nucleated RBC % Seg Neutrophils # Seg Neutrophils # Man Lymphocytes # (Manual) Monocytes # (Manual) Eosinophils # (Manual) PT INR APTT D-Dimer Heparin Anti-Xa Level ABG pH 7.466 H POC ABG pCO2 57.3 H POC ABG pO2 66.1 L ABG pO2 ABG HCO3 ABG O2 Saturation ABG Base Excess ABG Hemoglobin 10.2 L ABG Oxyhemoglobin 92.3 L ABG Sodium 134.4 L ABG Potassium 3.2 L ABG Chloride 94.0 L ABG Glucose 178 H Oxyhemoglobin Carboxyhemoglobin Sodium Potassium Chloride Carbon Dioxide BUN Creatinine Glucose POC Glucose 170 H 170 H Lactic Acid Calcium Magnesium Ferritin Total Bilirubin Direct Bilirubin AST ALT Alkaline Phosphatase Lactate Dehydrogenase C-Reactive Protein Total Protein Albumin Triglycerides Lipase Arterial Blood Glucose 178 H Arterial Blood Ionized Calcium Urine WBC (Auto) Coronavirus (PCR) SARS-CoV-2 IgG Ab Crossmatch 06/30/20 06/30/20 06/30/20 07:00 07:00 12:04 WBC 15.6 H RBC 2.91 L Hgb 9.8 L Hct 29.7 L MCV 102 H MCH 34 H MCHC RDW 17.8 H Lymph % (Auto) [place] % (Auto) Lymph # (Auto) [place] # (Auto) Baso # (Auto) Seg Neutrophils % Seg Neuts % (Manual) Lymphocytes % (Manual) 5.0 L Nucleated RBC % Seg Neutrophils # Seg Neutrophils # Man 14.8 H Lymphocytes # (Manual) 0.8 L Monocytes # (Manual) Eosinophils # (Manual) PT INR APTT D-Dimer Heparin Anti-Xa Level ABG pH POC ABG pCO2 POC ABG pO2 ABG pO2 ABG HCO3 ABG O2 Saturation ABG Base Excess ABG Hemoglobin ABG Oxyhemoglobin ABG Sodium ABG Potassium ABG Chloride ABG Glucose Oxyhemoglobin Carboxyhemoglobin Sodium Potassium Chloride 93.3 L Carbon Dioxide 43 H* BUN Creatinine 0.3 L Glucose 260 H POC Glucose 245 H Lactic Acid Calcium Magnesium Ferritin Total Bilirubin Direct Bilirubin AST ALT Alkaline Phosphatase Lactate Dehydrogenase C-Reactive Protein Total Protein Albumin 2.8 L Triglycerides 452 H Lipase Arterial Blood Glucose Arterial Blood Ionized Calcium Urine WBC (Auto) Coronavirus (PCR) SARS-CoV-2 IgG Ab Crossmatch 06/30/20 07/01/20 07/01/20 17:32 00:02 05:02 WBC RBC Hgb Hct MCV MCH MCHC RDW Lymph % (Auto) [place] % (Auto) Lymph # (Auto) [place] # (Auto) Baso # (Auto) Seg Neutrophils % Seg Neuts % (Manual) Lymphocytes % (Manual) Nucleated RBC % Seg Neutrophils # Seg Neutrophils # Man Lymphocytes # (Manual) Monocytes # (Manual) Eosinophils # (Manual) PT INR APTT D-Dimer Heparin Anti-Xa Level ABG pH POC ABG pCO2 58.1 H POC ABG pO2 ABG pO2 ABG HCO3 ABG O2 Saturation ABG Base Excess ABG Hemoglobin 11.2 L ABG Oxyhemoglobin ABG Sodium 132.7 L ABG Potassium ABG Chloride 92.0 L ABG Glucose 238 H Oxyhemoglobin Carboxyhemoglobin Sodium Potassium Chloride Carbon Dioxide BUN Creatinine Glucose POC Glucose 209 H 208 H Lactic Acid Calcium Magnesium Ferritin Total Bilirubin Direct Bilirubin AST ALT Alkaline Phosphatase Lactate Dehydrogenase C-Reactive Protein Total Protein Albumin Triglycerides Lipase Arterial Blood Glucose 238 H Arterial Blood Ionized Calcium Urine WBC (Auto) Coronavirus (PCR) SARS-CoV-2 IgG Ab Crossmatch 07/01/20 07/01/20 07/01/20 06:16 06:41 06:41 WBC 18.1 H RBC 2.33 L Hgb 7.1 L Hct 21.3 L D MCV MCH MCHC RDW Lymph % (Auto) [place] % (Auto) Lymph # (Auto) [place] # (Auto) Baso # (Auto) Seg Neutrophils % Seg Neuts % (Manual) 82.0 H Lymphocytes % (Manual) 7.0 L Nucleated RBC % 1.0 H Seg Neutrophils # Seg Neutrophils # Man 14.8 H Lymphocytes # (Manual) Monocytes # (Manual) 1.1 H Eosinophils # (Manual) 0.5 H PT INR APTT D-Dimer Heparin Anti-Xa Level < 0.10 L ABG pH POC ABG pCO2 POC ABG pO2 ABG pO2 ABG HCO3 ABG O2 Saturation ABG Base Excess ABG Hemoglobin ABG Oxyhemoglobin ABG Sodium ABG Potassium ABG Chloride ABG Glucose Oxyhemoglobin Carboxyhemoglobin Sodium Potassium Chloride Carbon Dioxide BUN Creatinine Glucose POC Glucose 180 H Lactic Acid Calcium Magnesium Ferritin Total Bilirubin Direct Bilirubin AST ALT Alkaline Phosphatase Lactate Dehydrogenase C-Reactive Protein Total Protein Albumin Triglycerides Lipase Arterial Blood Glucose Arterial Blood Ionized Calcium Urine WBC (Auto) Coronavirus (PCR) SARS-CoV-2 IgG Ab Crossmatch 07/01/20 07/01/20 07/01/20 08:11 12:04 16:16 WBC RBC Hgb Hct MCV MCH MCHC RDW Lymph % (Auto) [place] % (Auto) Lymph # (Auto) [place] # (Auto) Baso # (Auto) Seg Neutrophils % Seg Neuts % (Manual) Lymphocytes % (Manual) Nucleated RBC % Seg Neutrophils # Seg Neutrophils # Man Lymphocytes # (Manual) Monocytes # (Manual) Eosinophils # (Manual) PT INR APTT D-Dimer Heparin Anti-Xa Level 1.02 H ABG pH POC ABG pCO2 POC ABG pO2 ABG pO2 ABG HCO3 ABG O2 Saturation ABG Base Excess ABG Hemoglobin ABG Oxyhemoglobin ABG Sodium ABG Potassium ABG Chloride ABG Glucose Oxyhemoglobin Carboxyhemoglobin Sodium 135 L Potassium 3.0 L Chloride 93.1 L Carbon Dioxide 40 H BUN Creatinine 0.3 L Glucose 140 H POC Glucose 223 H Lactic Acid Calcium Magnesium Ferritin Total Bilirubin Direct Bilirubin AST ALT Alkaline Phosphatase Lactate Dehydrogenase C-Reactive Protein Total Protein Albumin Triglycerides Lipase Arterial Blood Glucose Arterial Blood Ionized Calcium Urine WBC (Auto) Coronavirus (PCR) SARS-CoV-2 IgG Ab Crossmatch 07/01/20 07/01/20 07/02/20 17:09 23:19 00:56 WBC RBC Hgb Hct MCV MCH MCHC RDW Lymph % (Auto) [place] % (Auto) Lymph # (Auto) [place] # (Auto) Baso # (Auto) Seg Neutrophils % Seg Neuts % (Manual) Lymphocytes % (Manual) Nucleated RBC % Seg Neutrophils # Seg Neutrophils # Man Lymphocytes # (Manual) Monocytes # (Manual) Eosinophils # (Manual) PT INR APTT D-Dimer Heparin Anti-Xa Level 0.22 L ABG pH POC ABG pCO2 POC ABG pO2 ABG pO2 ABG HCO3 ABG O2 Saturation ABG Base Excess ABG Hemoglobin ABG Oxyhemoglobin ABG Sodium ABG Potassium ABG Chloride ABG Glucose Oxyhemoglobin Carboxyhemoglobin Sodium Potassium Chloride Carbon Dioxide BUN Creatinine Glucose POC Glucose 233 H 255 H Lactic Acid Calcium Magnesium Ferritin Total Bilirubin Direct Bilirubin AST ALT Alkaline Phosphatase Lactate Dehydrogenase C-Reactive Protein Total Protein Albumin Triglycerides Lipase Arterial Blood Glucose Arterial Blood Ionized Calcium Urine WBC (Auto) Coronavirus (PCR) SARS-CoV-2 IgG Ab Crossmatch 07/02/20 07/02/20 07/02/20 03:51 05:35 11:39 WBC RBC Hgb Hct MCV MCH MCHC RDW Lymph % (Auto) [place] % (Auto) Lymph # (Auto) [place] # (Auto) Baso # (Auto) Seg Neutrophils % Seg Neuts % (Manual) Lymphocytes % (Manual) Nucleated RBC % Seg Neutrophils # Seg Neutrophils # Man Lymphocytes # (Manual) Monocytes # (Manual) Eosinophils # (Manual) PT INR APTT D-Dimer Heparin Anti-Xa Level ABG pH POC ABG pCO2 54.9 H POC ABG pO2 52.1 L ABG pO2 ABG HCO3 ABG O2 Saturation ABG Base Excess ABG Hemoglobin 11.9 L ABG Oxyhemoglobin 82.8 L ABG Sodium 130.2 L ABG Potassium ABG Chloride 92.0 L ABG Glucose 249 H Oxyhemoglobin Carboxyhemoglobin 1.9 H Sodium Potassium Chloride Carbon Dioxide BUN Creatinine Glucose POC Glucose 205 H 235 H Lactic Acid Calcium Magnesium Ferritin Total Bilirubin Direct Bilirubin AST ALT Alkaline Phosphatase Lactate Dehydrogenase C-Reactive Protein Total Protein Albumin Triglycerides Lipase Arterial Blood Glucose 249 H Arterial Blood Ionized Calcium Urine WBC (Auto) Coronavirus (PCR) SARS-CoV-2 IgG Ab Crossmatch 07/02/20 07/02/20 07/02/20 16:08 16:08 17:54 WBC 19.8 H RBC 3.28 L Hgb 10.7 L D Hct 32.7 L D MCV 100 H MCH 33 H MCHC RDW 17.2 H Lymph % (Auto) [place] % (Auto) Lymph # (Auto) [place] # (Auto) Baso # (Auto) Seg Neutrophils % Seg Neuts % (Manual) Lymphocytes % (Manual) Nucleated RBC % Seg Neutrophils # Seg Neutrophils # Man Lymphocytes # (Manual) Monocytes # (Manual) Eosinophils # (Manual) PT INR APTT D-Dimer Heparin Anti-Xa Level ABG pH POC ABG pCO2 POC ABG pO2 ABG pO2 ABG HCO3 ABG O2 Saturation ABG Base Excess ABG Hemoglobin ABG Oxyhemoglobin ABG Sodium ABG Potassium ABG Chloride ABG Glucose Oxyhemoglobin Carboxyhemoglobin Sodium 136 L Potassium Chloride 92.4 L Carbon Dioxide 35 H BUN Creatinine 0.3 L Glucose 203 H POC Glucose 175 H Lactic Acid Calcium Magnesium Ferritin Total Bilirubin Direct Bilirubin AST ALT Alkaline Phosphatase Lactate Dehydrogenase C-Reactive Protein Total Protein Albumin Triglycerides Lipase Arterial Blood Glucose Arterial Blood Ionized Calcium Urine WBC (Auto) Coronavirus (PCR) SARS-CoV-2 IgG Ab Crossmatch 1207/03/20 07/03/20 23:46 03:25 05:54 WBC RBC Hgb Hct MCV MCH MCHC RDW Lymph % (Auto) [place] % (Auto) Lymph # (Auto) [place] # (Auto) Baso # (Auto) Seg Neutrophils % Seg Neuts % (Manual) Lymphocytes % (Manual) Nucleated RBC % Seg Neutrophils # Seg Neutrophils # Man Lymphocytes # (Manual) Monocytes # (Manual) Eosinophils # (Manual) PT INR APTT D-Dimer Heparin Anti-Xa Level ABG pH 7.468 H POC ABG pCO2 51.5 H POC ABG pO2 ABG pO2 ABG HCO3 ABG O2 Saturation ABG Base Excess ABG Hemoglobin ABG Oxyhemoglobin ABG Sodium 130.2 L ABG Potassium ABG Chloride 91.0 L ABG Glucose 210 H Oxyhemoglobin Carboxyhemoglobin 1.6 H Sodium Potassium Chloride Carbon Dioxide BUN Creatinine Glucose POC Glucose 173 H 125 H Lactic Acid Calcium Magnesium Ferritin Total Bilirubin Direct Bilirubin AST ALT Alkaline Phosphatase Lactate Dehydrogenase C-Reactive Protein Total Protein Albumin Triglycerides Lipase Arterial Blood Glucose 210 H Arterial Blood Ionized Calcium Urine WBC (Auto) Coronavirus (PCR) SARS-CoV-2 IgG Ab Crossmatch 07/03/20 07/03/20 07/03/20 11:43 12:20 12:20 WBC 16.5 H RBC 3.13 L Hgb 10.4 L Hct 31.8 L MCV 102 H MCH 33 H MCHC RDW 17.2 H Lymph % (Auto) [place] % (Auto) Lymph # (Auto) [place] # (Auto) Baso # (Auto) Seg Neutrophils % Seg Neuts % (Manual) Lymphocytes % (Manual) Nucleated RBC % Seg Neutrophils # Seg Neutrophils # Man Lymphocytes # (Manual) Monocytes # (Manual) Eosinophils # (Manual) PT INR APTT D-Dimer Heparin Anti-Xa Level ABG pH POC ABG pCO2 POC ABG pO2 ABG pO2 ABG HCO3 ABG O2 Saturation ABG Base Excess ABG Hemoglobin ABG Oxyhemoglobin ABG Sodium ABG Potassium ABG Chloride ABG Glucose Oxyhemoglobin Carboxyhemoglobin Sodium 132 L Potassium Chloride 88.5 L Carbon Dioxide 37 H BUN Creatinine 0.3 L Glucose 230 H POC Glucose 223 H Lactic Acid Calcium Magnesium Ferritin Total Bilirubin Direct Bilirubin AST ALT Alkaline Phosphatase Lactate Dehydrogenase C-Reactive Protein Total Protein Albumin Triglycerides Lipase Arterial Blood Glucose Arterial Blood Ionized Calcium Urine WBC (Auto) Coronavirus (PCR) SARS-CoV-2 IgG Ab Crossmatch 07/03/20 07/03/20 07/04/20 17:24 21:41 00:54 WBC RBC Hgb Hct MCV MCH MCHC RDW Lymph % (Auto) [place] % (Auto) Lymph # (Auto) [place] # (Auto) Baso # (Auto) Seg Neutrophils % Seg Neuts % (Manual) Lymphocytes % (Manual) Nucleated RBC % Seg Neutrophils # Seg Neutrophils # Man Lymphocytes # (Manual) Monocytes # (Manual) Eosinophils # (Manual) PT INR APTT D-Dimer Heparin Anti-Xa Level ABG pH POC ABG pCO2 POC ABG pO2 ABG pO2 ABG HCO3 ABG O2 Saturation ABG Base Excess ABG Hemoglobin ABG Oxyhemoglobin ABG Sodium ABG Potassium ABG Chloride ABG Glucose Oxyhemoglobin Carboxyhemoglobin Sodium Potassium Chloride Carbon Dioxide BUN Creatinine Glucose POC Glucose 163 H 220 H 195 H Lactic Acid Calcium Magnesium Ferritin Total Bilirubin Direct Bilirubin AST ALT Alkaline Phosphatase Lactate Dehydrogenase C-Reactive Protein Total Protein Albumin Triglycerides Lipase Arterial Blood Glucose Arterial Blood Ionized Calcium Urine WBC (Auto) Coronavirus (PCR) SARS-CoV-2 IgG Ab Crossmatch 07/04/20 07/04/20 07/04/20 03:25 04:00 04:00 WBC 14.9 H RBC 2.91 L Hgb 9.5 L Hct 29.2 L MCV 100 H MCH 33 H MCHC RDW 16.7 H Lymph % (Auto) 8.4 L [place] % (Auto) Lymph # (Auto) [place] # (Auto) 1.1 H Baso # (Auto) Seg Neutrophils % 84.2 H Seg Neuts % (Manual) Lymphocytes % (Manual) Nucleated RBC % Seg Neutrophils # 12.6 H Seg Neutrophils # Man Lymphocytes # (Manual) Monocytes # (Manual) Eosinophils # (Manual) PT INR APTT D-Dimer Heparin Anti-Xa Level ABG pH 7.474 H POC ABG pCO2 POC ABG pO2 51.8 L ABG pO2 ABG HCO3 ABG O2 Saturation ABG Base Excess ABG Hemoglobin ABG Oxyhemoglobin ABG Sodium ABG Potassium ABG Chloride ABG Glucose Oxyhemoglobin Carboxyhemoglobin Sodium Potassium 3.4 L Chloride 92.1 L Carbon Dioxide 34 H BUN Creatinine 0.3 L Glucose 173 H POC Glucose Lactic Acid Calcium Magnesium Ferritin Total Bilirubin Direct Bilirubin AST ALT Alkaline Phosphatase Lactate Dehydrogenase C-Reactive Protein Total Protein Albumin Triglycerides Lipase Arterial Blood Glucose Arterial Blood Ionized Calcium Urine WBC (Auto) Coronavirus (PCR) SARS-CoV-2 IgG Ab Crossmatch 07/04/20 07/04/20 07/04/20 06:18 11:39 17:18 WBC RBC Hgb Hct MCV MCH MCHC RDW Lymph % (Auto) [place] % (Auto) Lymph # (Auto) [place] # (Auto) Baso # (Auto) Seg Neutrophils % Seg Neuts % (Manual) Lymphocytes % (Manual) Nucleated RBC % Seg Neutrophils # Seg Neutrophils # Man Lymphocytes # (Manual) Monocytes # (Manual) Eosinophils # (Manual) PT INR APTT D-Dimer Heparin Anti-Xa Level ABG pH POC ABG pCO2 POC ABG pO2 ABG pO2 ABG HCO3 ABG O2 Saturation ABG Base Excess ABG Hemoglobin ABG Oxyhemoglobin ABG Sodium ABG Potassium ABG Chloride ABG Glucose Oxyhemoglobin Carboxyhemoglobin Sodium Potassium Chloride Carbon Dioxide BUN Creatinine Glucose POC Glucose 158 H 257 H 148 H Lactic Acid Calcium Magnesium Ferritin Total Bilirubin Direct Bilirubin AST ALT Alkaline Phosphatase Lactate Dehydrogenase C-Reactive Protein Total Protein Albumin Triglycerides Lipase Arterial Blood Glucose Arterial Blood Ionized Calcium Urine WBC (Auto) Coronavirus (PCR) SARS-CoV-2 IgG Ab Crossmatch 07/04/20 07/05/20 07/05/20 23:23 03:13 05:18 WBC 13.3 H RBC 2.90 L Hgb 9.8 L Hct 29.3 L MCV 101 H MCH 34 H MCHC RDW 17.0 H Lymph % (Auto) 11.1 L [place] % (Auto) Lymph # (Auto) [place] # (Auto) Baso # (Auto) Seg Neutrophils % 82.3 H Seg Neuts % (Manual) Lymphocytes % (Manual) Nucleated RBC % Seg Neutrophils # 10.9 H Seg Neutrophils # Man Lymphocytes # (Manual) Monocytes # (Manual) Eosinophils # (Manual) PT INR APTT D-Dimer Heparin Anti-Xa Level ABG pH 7.48 H POC ABG pCO2 52.0 H POC ABG pO2 ABG pO2 ABG HCO3 ABG O2 Saturation ABG Base Excess ABG Hemoglobin 10.0 L ABG Oxyhemoglobin ABG Sodium 131.0 L ABG Potassium 3.3 L ABG Chloride 93.0 L ABG Glucose 177 H Oxyhemoglobin Carboxyhemoglobin Sodium Potassium Chloride Carbon Dioxide BUN Creatinine Glucose POC Glucose 227 H Lactic Acid Calcium Magnesium Ferritin Total Bilirubin Direct Bilirubin AST ALT Alkaline Phosphatase Lactate Dehydrogenase C-Reactive Protein Total Protein Albumin Triglycerides Lipase Arterial Blood Glucose 177 H Arterial Blood Ionized Calcium Urine WBC (Auto) Coronavirus (PCR) SARS-CoV-2 IgG Ab Crossmatch 07/05/20 07/05/20 07/05/20 05:18 05:25 05:57 WBC RBC Hgb Hct MCV MCH MCHC RDW Lymph % (Auto) [place] % (Auto) Lymph # (Auto) [place] # (Auto) Baso # (Auto) Seg Neutrophils % Seg Neuts % (Manual) Lymphocytes % (Manual) Nucleated RBC % Seg Neutrophils # Seg Neutrophils # Man Lymphocytes # (Manual) Monocytes # (Manual) Eosinophils # (Manual) PT INR APTT D-Dimer Heparin Anti-Xa Level ABG pH 7.519 H POC ABG pCO2 POC ABG pO2 198.6 H ABG pO2 ABG HCO3 ABG O2 Saturation ABG Base Excess ABG Hemoglobin 10.3 L ABG Oxyhemoglobin 98.7 H ABG Sodium 133.6 L ABG Potassium 3.3 L ABG Chloride 93.0 L ABG Glucose 175 H Oxyhemoglobin Carboxyhemoglobin Sodium Potassium 3.4 L Chloride 92.5 L Carbon Dioxide 36 H BUN Creatinine 0.3 L Glucose 148 H POC Glucose 170 H Lactic Acid Calcium Magnesium Ferritin Total Bilirubin Direct Bilirubin AST ALT Alkaline Phosphatase Lactate Dehydrogenase C-Reactive Protein Total Protein Albumin Triglycerides Lipase Arterial Blood Glucose 175 H Arterial Blood Ionized Calcium Urine WBC (Auto) Coronavirus (PCR) SARS-CoV-2 IgG Ab Crossmatch 07/05/20 07/05/20 07/06/20 11:37 18:39 00:04 WBC RBC Hgb Hct MCV MCH MCHC RDW Lymph % (Auto) [place] % (Auto) Lymph # (Auto) [place] # (Auto) Baso # (Auto) Seg Neutrophils % Seg Neuts % (Manual) Lymphocytes % (Manual) Nucleated RBC % Seg Neutrophils # Seg Neutrophils # Man Lymphocytes # (Manual) Monocytes # (Manual) Eosinophils # (Manual) PT INR APTT D-Dimer Heparin Anti-Xa Level ABG pH POC ABG pCO2 POC ABG pO2 ABG pO2 ABG HCO3 ABG O2 Saturation ABG Base Excess ABG Hemoglobin ABG Oxyhemoglobin ABG Sodium ABG Potassium ABG Chloride ABG Glucose Oxyhemoglobin Carboxyhemoglobin Sodium Potassium Chloride Carbon Dioxide BUN Creatinine Glucose POC Glucose 195 H 200 H 222 H Lactic Acid Calcium Magnesium Ferritin Total Bilirubin Direct Bilirubin AST ALT Alkaline Phosphatase Lactate Dehydrogenase C-Reactive Protein Total Protein Albumin Triglycerides Lipase Arterial Blood Glucose Arterial Blood Ionized Calcium Urine WBC (Auto) Coronavirus (PCR) SARS-CoV-2 IgG Ab Crossmatch 07/06/20 07/06/20 07/06/20 05:25 06:52 06:52 WBC 15.8 H RBC 3.17 L Hgb 10.4 L Hct 31.5 L MCV 99 H MCH 33 H MCHC RDW 17.0 H Lymph % (Auto) [place] % (Auto) Lymph # (Auto) [place] # (Auto) Baso # (Auto) Seg Neutrophils % Seg Neuts % (Manual) Lymphocytes % (Manual) Nucleated RBC % Seg Neutrophils # Seg Neutrophils # Man Lymphocytes # (Manual) Monocytes # (Manual) Eosinophils # (Manual) PT INR APTT D-Dimer Heparin Anti-Xa Level ABG pH POC ABG pCO2 POC ABG pO2 ABG pO2 ABG HCO3 ABG O2 Saturation ABG Base Excess ABG Hemoglobin ABG Oxyhemoglobin ABG Sodium ABG Potassium ABG Chloride ABG Glucose Oxyhemoglobin Carboxyhemoglobin Sodium 135 L Potassium 3.4 L Chloride 91.9 L Carbon Dioxide 38 H BUN Creatinine 0.3 L Glucose 189 H POC Glucose 165 H Lactic Acid Calcium Magnesium Ferritin Total Bilirubin Direct Bilirubin AST ALT Alkaline Phosphatase Lactate Dehydrogenase C-Reactive Protein Total Protein Albumin Triglycerides Lipase Arterial Blood Glucose Arterial Blood Ionized Calcium Urine WBC (Auto) Coronavirus (PCR) SARS-CoV-2 IgG Ab Crossmatch 07/06/20 07/06/20 07/06/20 13:01 18:04 23:08 WBC RBC Hgb Hct MCV MCH MCHC RDW Lymph % (Auto) [place] % (Auto) Lymph # (Auto) [place] # (Auto) Baso # (Auto) Seg Neutrophils % Seg Neuts % (Manual) Lymphocytes % (Manual) Nucleated RBC % Seg Neutrophils # Seg Neutrophils # Man Lymphocytes # (Manual) Monocytes # (Manual) Eosinophils # (Manual) PT INR APTT D-Dimer Heparin Anti-Xa Level ABG pH POC ABG pCO2 POC ABG pO2 ABG pO2 ABG HCO3 ABG O2 Saturation ABG Base Excess ABG Hemoglobin ABG Oxyhemoglobin ABG Sodium ABG Potassium ABG Chloride ABG Glucose Oxyhemoglobin Carboxyhemoglobin Sodium Potassium Chloride Carbon Dioxide BUN Creatinine Glucose POC Glucose 195 H 169 H 173 H Lactic Acid Calcium Magnesium Ferritin Total Bilirubin Direct Bilirubin AST ALT Alkaline Phosphatase Lactate Dehydrogenase C-Reactive Protein Total Protein Albumin Triglycerides Lipase Arterial Blood Glucose Arterial Blood Ionized Calcium Urine WBC (Auto) Coronavirus (PCR) SARS-CoV-2 IgG Ab Crossmatch 07/07/20 07/07/20 07/07/20 05:35 05:35 05:39 WBC 17.6 H RBC 3.16 L Hgb 10.4 L Hct 31.5 L MCV 100 H MCH 33 H MCHC RDW 16.7 H Lymph % (Auto) 11.1 L [place] % (Auto) Lymph # (Auto) [place] # (Auto) 1.0 H Baso # (Auto) Seg Neutrophils % 83.0 H Seg Neuts % (Manual) Lymphocytes % (Manual) Nucleated RBC % Seg Neutrophils # 14.6 H Seg Neutrophils # Man Lymphocytes # (Manual) Monocytes # (Manual) Eosinophils # (Manual) PT INR APTT D-Dimer Heparin Anti-Xa Level ABG pH POC ABG pCO2 POC ABG pO2 ABG pO2 ABG HCO3 ABG O2 Saturation ABG Base Excess ABG Hemoglobin ABG Oxyhemoglobin ABG Sodium ABG Potassium ABG Chloride ABG Glucose Oxyhemoglobin Carboxyhemoglobin Sodium 135 L Potassium 3.4 L Chloride 94.3 L Carbon Dioxide 32 H BUN Creatinine 0.2 L Glucose 240 H POC Glucose 191 H Lactic Acid Calcium Magnesium Ferritin Total Bilirubin Direct Bilirubin AST ALT Alkaline Phosphatase Lactate Dehydrogenase C-Reactive Protein Total Protein Albumin Triglycerides Lipase Arterial Blood Glucose Arterial Blood Ionized Calcium Urine WBC (Auto) Coronavirus (PCR) SARS-CoV-2 IgG Ab Crossmatch 07/07/20 07/07/20 07/07/20 12:08 16:39 23:41 WBC RBC Hgb Hct MCV MCH MCHC RDW Lymph % (Auto) [place] % (Auto) Lymph # (Auto) [place] # (Auto) Baso # (Auto) Seg Neutrophils % Seg Neuts % (Manual) Lymphocytes % (Manual) Nucleated RBC % Seg Neutrophils # Seg Neutrophils # Man Lymphocytes # (Manual) Monocytes # (Manual) Eosinophils # (Manual) PT INR APTT D-Dimer Heparin Anti-Xa Level ABG pH POC ABG pCO2 POC ABG pO2 ABG pO2 ABG HCO3 ABG O2 Saturation ABG Base Excess ABG Hemoglobin ABG Oxyhemoglobin ABG Sodium ABG Potassium ABG Chloride ABG Glucose Oxyhemoglobin Carboxyhemoglobin Sodium Potassium Chloride Carbon Dioxide BUN Creatinine Glucose POC Glucose 248 H 209 H 231 H Lactic Acid Calcium Magnesium Ferritin Total Bilirubin Direct Bilirubin AST ALT Alkaline Phosphatase Lactate Dehydrogenase C-Reactive Protein Total Protein Albumin Triglycerides Lipase Arterial Blood Glucose Arterial Blood Ionized Calcium Urine WBC (Auto) Coronavirus (PCR) SARS-CoV-2 IgG Ab Crossmatch 07/08/20 07/08/20 07/08/20 04:58 04:58 05:38 WBC 21.0 H RBC 2.86 L Hgb 9.2 L Hct 28.6 L MCV 100 H MCH MCHC RDW 16.7 H Lymph % (Auto) [place] % (Auto) Lymph # (Auto) [place] # (Auto) Baso # (Auto) Seg Neutrophils % Seg Neuts % (Manual) 93.0 H Lymphocytes % (Manual) 3.0 L Nucleated RBC % Seg Neutrophils # Seg Neutrophils # Man 19.5 H Lymphocytes # (Manual) 0.6 L Monocytes # (Manual) Eosinophils # (Manual) PT INR APTT D-Dimer Heparin Anti-Xa Level ABG pH POC ABG pCO2 POC ABG pO2 ABG pO2 ABG HCO3 ABG O2 Saturation ABG Base Excess ABG Hemoglobin ABG Oxyhemoglobin ABG Sodium ABG Potassium ABG Chloride ABG Glucose Oxyhemoglobin Carboxyhemoglobin Sodium Potassium 3.0 L Chloride Carbon Dioxide BUN Creatinine 0.2 L Glucose 201 H POC Glucose 161 H Lactic Acid Calcium 7.9 L D Magnesium Ferritin Total Bilirubin Direct Bilirubin AST ALT Alkaline Phosphatase Lactate Dehydrogenase C-Reactive Protein Total Protein Albumin Triglycerides Lipase Arterial Blood Glucose Arterial Blood Ionized Calcium Urine WBC (Auto) Coronavirus (PCR) SARS-CoV-2 IgG Ab Crossmatch 07/08/20 07/08/20 07/08/20 12:19 16:26 Unknown WBC RBC Hgb Hct MCV MCH MCHC RDW Lymph % (Auto) [place] % (Auto) Lymph # (Auto) [place] # (Auto) Baso # (Auto) Seg Neutrophils % Seg Neuts % (Manual) Lymphocytes % (Manual) Nucleated RBC % Seg Neutrophils # Seg Neutrophils # Man Lymphocytes # (Manual) Monocytes # (Manual) Eosinophils # (Manual) PT INR APTT D-Dimer Heparin Anti-Xa Level ABG pH POC ABG pCO2 POC ABG pO2 ABG pO2 75.3 L ABG HCO3 34.3 H ABG O2 Saturation ABG Base Excess 8.7 H ABG Hemoglobin 10.2 L ABG Oxyhemoglobin ABG Sodium ABG Potassium ABG Chloride ABG Glucose Oxyhemoglobin 93.7 L Carboxyhemoglobin Sodium Potassium Chloride Carbon Dioxide BUN Creatinine Glucose POC Glucose 152 H 173 H Lactic Acid Calcium Magnesium Ferritin Total Bilirubin Direct Bilirubin AST ALT Alkaline Phosphatase Lactate Dehydrogenase C-Reactive Protein Total Protein Albumin Triglycerides Lipase Arterial Blood Glucose Arterial Blood Ionized Calcium Urine WBC (Auto) Coronavirus (PCR) SARS-CoV-2 IgG Ab Crossmatch 07/09/20 07/09/20 07/09/20 00:01 06:00 11:55 WBC RBC Hgb Hct MCV MCH MCHC RDW Lymph % (Auto) [place] % (Auto) Lymph # (Auto) [place] # (Auto) Baso # (Auto) Seg Neutrophils % Seg Neuts % (Manual) Lymphocytes % (Manual) Nucleated RBC % Seg Neutrophils # Seg Neutrophils # Man Lymphocytes # (Manual) Monocytes # (Manual) Eosinophils # (Manual) PT INR APTT D-Dimer Heparin Anti-Xa Level ABG pH POC ABG pCO2 POC ABG pO2 ABG pO2 ABG HCO3 ABG O2 Saturation ABG Base Excess ABG Hemoglobin ABG Oxyhemoglobin ABG Sodium ABG Potassium ABG Chloride ABG Glucose Oxyhemoglobin Carboxyhemoglobin Sodium Potassium Chloride Carbon Dioxide BUN Creatinine Glucose POC Glucose 207 H 141 H 228 H Lactic Acid Calcium Magnesium Ferritin Total Bilirubin Direct Bilirubin AST ALT Alkaline Phosphatase Lactate Dehydrogenase C-Reactive Protein Total Protein Albumin Triglycerides Lipase Arterial Blood Glucose Arterial Blood Ionized Calcium Urine WBC (Auto) Coronavirus (PCR) SARS-CoV-2 IgG Ab Crossmatch 07/09/20 07/09/20 07/09/20 16:47 23:53 Unknown WBC RBC Hgb Hct MCV MCH MCHC RDW Lymph % (Auto) [place] % (Auto) Lymph # (Auto) [place] # (Auto) Baso # (Auto) Seg Neutrophils % Seg Neuts % (Manual) Lymphocytes % (Manual) Nucleated RBC % Seg Neutrophils # Seg Neutrophils # Man Lymphocytes # (Manual) Monocytes # (Manual) Eosinophils # (Manual) PT INR APTT D-Dimer Heparin Anti-Xa Level ABG pH POC ABG pCO2 POC ABG pO2 ABG pO2 ABG HCO3 ABG O2 Saturation ABG Base Excess ABG Hemoglobin ABG Oxyhemoglobin ABG Sodium ABG Potassium ABG Chloride ABG Glucose Oxyhemoglobin Carboxyhemoglobin Sodium 132 L Potassium Chloride 92.7 L Carbon Dioxide 35 H BUN Creatinine 0.2 L Glucose 234 H POC Glucose 136 H 219 H Lactic Acid Calcium Magnesium Ferritin Total Bilirubin Direct Bilirubin AST ALT Alkaline Phosphatase Lactate Dehydrogenase C-Reactive Protein Total Protein Albumin Triglycerides Lipase Arterial Blood Glucose Arterial Blood Ionized Calcium Urine WBC (Auto) Coronavirus (PCR) SARS-CoV-2 IgG Ab Crossmatch 07/10/20 07/10/20 07/10/20 05:20 12:05 18:38 WBC RBC Hgb Hct MCV MCH MCHC RDW Lymph % (Auto) [place] % (Auto) Lymph # (Auto) [place] # (Auto) Baso # (Auto) Seg Neutrophils % Seg Neuts % (Manual) Lymphocytes % (Manual) Nucleated RBC % Seg Neutrophils # Seg Neutrophils # Man Lymphocytes # (Manual) Monocytes # (Manual) Eosinophils # (Manual) PT INR APTT D-Dimer Heparin Anti-Xa Level ABG pH POC ABG pCO2 POC ABG pO2 ABG pO2 ABG HCO3 ABG O2 Saturation ABG Base Excess ABG Hemoglobin ABG Oxyhemoglobin ABG Sodium ABG Potassium ABG Chloride ABG Glucose Oxyhemoglobin Carboxyhemoglobin Sodium Potassium Chloride Carbon Dioxide BUN Creatinine Glucose POC Glucose 221 H 174 H 152 H Lactic Acid Calcium Magnesium Ferritin Total Bilirubin Direct Bilirubin AST ALT Alkaline Phosphatase Lactate Dehydrogenase C-Reactive Protein Total Protein Albumin Triglycerides Lipase Arterial Blood Glucose Arterial Blood Ionized Calcium Urine WBC (Auto) Coronavirus (PCR) SARS-CoV-2 IgG Ab Crossmatch 07/11/20 07/11/20 07/11/20 00:16 05:42 08:13 WBC 11.9 H RBC 3.13 L Hgb 10.2 L Hct 31.2 L MCV 100 H MCH 33 H MCHC RDW 16.4 H Lymph % (Auto) [place] % (Auto) 9.3 H Lymph # (Auto) [place] # (Auto) 1.1 H Baso # (Auto) Seg Neutrophils % 72.7 H Seg Neuts % (Manual) Lymphocytes % (Manual) Nucleated RBC % Seg Neutrophils # 8.7 H Seg Neutrophils # Man Lymphocytes # (Manual) Monocytes # (Manual) Eosinophils # (Manual) PT INR APTT D-Dimer Heparin Anti-Xa Level ABG pH POC ABG pCO2 POC ABG pO2 ABG pO2 ABG HCO3 ABG O2 Saturation ABG Base Excess ABG Hemoglobin ABG Oxyhemoglobin ABG Sodium ABG Potassium ABG Chloride ABG Glucose Oxyhemoglobin Carboxyhemoglobin Sodium Potassium Chloride Carbon Dioxide BUN Creatinine Glucose POC Glucose 170 H 186 H Lactic Acid Calcium Magnesium Ferritin Total Bilirubin Direct Bilirubin AST ALT Alkaline Phosphatase Lactate Dehydrogenase C-Reactive Protein Total Protein Albumin Triglycerides Lipase Arterial Blood Glucose Arterial Blood Ionized Calcium Urine WBC (Auto) Coronavirus (PCR) SARS-CoV-2 IgG Ab Crossmatch 07/11/20 07/11/20 07/11/20 08:13 11:35 18:07 WBC RBC Hgb Hct MCV MCH MCHC RDW Lymph % (Auto) [place] % (Auto) Lymph # (Auto) [place] # (Auto) Baso # (Auto) Seg Neutrophils % Seg Neuts % (Manual) Lymphocytes % (Manual) Nucleated RBC % Seg Neutrophils # Seg Neutrophils # Man Lymphocytes # (Manual) Monocytes # (Manual) Eosinophils # (Manual) PT INR APTT D-Dimer Heparin Anti-Xa Level ABG pH POC ABG pCO2 POC ABG pO2 ABG pO2 ABG HCO3 ABG O2 Saturation ABG Base Excess ABG Hemoglobin ABG Oxyhemoglobin ABG Sodium ABG Potassium ABG Chloride ABG Glucose Oxyhemoglobin Carboxyhemoglobin Sodium 135 L Potassium Chloride 92.8 L Carbon Dioxide 38 H BUN Creatinine 0.2 L Glucose 132 H POC Glucose 129 H 156 H Lactic Acid Calcium Magnesium Ferritin Total Bilirubin Direct Bilirubin AST ALT Alkaline Phosphatase Lactate Dehydrogenase C-Reactive Protein Total Protein Albumin Triglycerides Lipase Arterial Blood Glucose Arterial Blood Ionized Calcium Urine WBC (Auto) Coronavirus (PCR) SARS-CoV-2 IgG Ab Crossmatch 07/11/20 07/11/20 07/12/20 18:36 23:18 05:28 WBC RBC Hgb Hct MCV MCH MCHC RDW Lymph % (Auto) [place] % (Auto) Lymph # (Auto) [place] # (Auto) Baso # (Auto) Seg Neutrophils % Seg Neuts % (Manual) Lymphocytes % (Manual) Nucleated RBC % Seg Neutrophils # Seg Neutrophils # Man Lymphocytes # (Manual) Monocytes # (Manual) Eosinophils # (Manual) PT INR APTT D-Dimer Heparin Anti-Xa Level ABG pH POC ABG pCO2 POC ABG pO2 70.9 L ABG pO2 ABG HCO3 ABG O2 Saturation ABG Base Excess ABG Hemoglobin 10.8 L ABG Oxyhemoglobin 92.5 L ABG Sodium 131.8 L ABG Potassium 3.2 L ABG Chloride 91.0 L ABG Glucose 181 H Oxyhemoglobin Carboxyhemoglobin Sodium Potassium Chloride Carbon Dioxide BUN Creatinine Glucose POC Glucose 189 H 190 H Lactic Acid Calcium Magnesium Ferritin Total Bilirubin Direct Bilirubin AST ALT Alkaline Phosphatase Lactate Dehydrogenase C-Reactive Protein Total Protein Albumin Triglycerides Lipase Arterial Blood Glucose 181 H Arterial Blood Ionized Calcium Urine WBC (Auto) Coronavirus (PCR) SARS-CoV-2 IgG Ab Crossmatch 07/12/20 07/12/20 07/12/20 11:33 17:45 23:59 WBC RBC Hgb Hct MCV MCH MCHC RDW Lymph % (Auto) [place] % (Auto) Lymph # (Auto) [place] # (Auto) Baso # (Auto) Seg Neutrophils % Seg Neuts % (Manual) Lymphocytes % (Manual) Nucleated RBC % Seg Neutrophils # Seg Neutrophils # Man Lymphocytes # (Manual) Monocytes # (Manual) Eosinophils # (Manual) PT INR APTT D-Dimer Heparin Anti-Xa Level ABG pH POC ABG pCO2 POC ABG pO2 ABG pO2 ABG HCO3 ABG O2 Saturation ABG Base Excess ABG Hemoglobin ABG Oxyhemoglobin ABG Sodium ABG Potassium ABG Chloride ABG Glucose Oxyhemoglobin Carboxyhemoglobin Sodium Potassium Chloride Carbon Dioxide BUN Creatinine Glucose POC Glucose 151 H 211 H 169 H Lactic Acid Calcium Magnesium Ferritin Total Bilirubin Direct Bilirubin AST ALT Alkaline Phosphatase Lactate Dehydrogenase C-Reactive Protein Total Protein Albumin Triglycerides Lipase Arterial Blood Glucose Arterial Blood Ionized Calcium Urine WBC (Auto) Coronavirus (PCR) SARS-CoV-2 IgG Ab Crossmatch 07/13/20 07/13/20 07/13/20 05:44 08:31 08:31 WBC 21.3 H RBC 2.92 L Hgb 9.7 L Hct 28.7 L MCV 98 H MCH 33 H MCHC RDW 16.8 H Lymph % (Auto) [place] % (Auto) Lymph # (Auto) [place] # (Auto) Baso # (Auto) Seg Neutrophils % Seg Neuts % (Manual) 96.0 H Lymphocytes % (Manual) 2.0 L Nucleated RBC % Seg Neutrophils # Seg Neutrophils # Man 20.4 H Lymphocytes # (Manual) 0.4 L Monocytes # (Manual) Eosinophils # (Manual) PT INR APTT D-Dimer Heparin Anti-Xa Level ABG pH POC ABG pCO2 POC ABG pO2 ABG pO2 ABG HCO3 ABG O2 Saturation ABG Base Excess ABG Hemoglobin ABG Oxyhemoglobin ABG Sodium ABG Potassium ABG Chloride ABG Glucose Oxyhemoglobin Carboxyhemoglobin Sodium Potassium 2.9 L* D Chloride 94.4 L Carbon Dioxide 37 H BUN Creatinine 0.2 L Glucose 166 H POC Glucose 122 H Lactic Acid Calcium Magnesium Ferritin Total Bilirubin Direct Bilirubin AST ALT Alkaline Phosphatase Lactate Dehydrogenase C-Reactive Protein Total Protein Albumin Triglycerides Lipase Arterial Blood Glucose Arterial Blood Ionized Calcium Urine WBC (Auto) Coronavirus (PCR) SARS-CoV-2 IgG Ab Crossmatch 07/13/20 07/13/20 07/13/20 11:54 13:52 17:40 WBC RBC Hgb Hct MCV MCH MCHC RDW Lymph % (Auto) [place] % (Auto) Lymph # (Auto) [place] # (Auto) Baso # (Auto) Seg Neutrophils % Seg Neuts % (Manual) Lymphocytes % (Manual) Nucleated RBC % Seg Neutrophils # Seg Neutrophils # Man Lymphocytes # (Manual) Monocytes # (Manual) Eosinophils # (Manual) PT INR APTT D-Dimer Heparin Anti-Xa Level ABG pH 7.477 H POC ABG pCO2 54.4 H POC ABG pO2 126.8 H ABG pO2 ABG HCO3 ABG O2 Saturation ABG Base Excess ABG Hemoglobin 11.5 L ABG Oxyhemoglobin ABG Sodium ABG Potassium 3.2 L ABG Chloride 92.0 L ABG Glucose 169 H Oxyhemoglobin Carboxyhemoglobin Sodium Potassium Chloride Carbon Dioxide BUN Creatinine Glucose POC Glucose 132 H 128 H Lactic Acid Calcium Magnesium Ferritin Total Bilirubin Direct Bilirubin AST ALT Alkaline Phosphatase Lactate Dehydrogenase C-Reactive Protein Total Protein Albumin Triglycerides Lipase Arterial Blood Glucose 169 H Arterial Blood Ionized Calcium Urine WBC (Auto) Coronavirus (PCR) SARS-CoV-2 IgG Ab Crossmatch 07/14/20 07/14/20 07/15/20 07:49 17:09 05:27 WBC RBC Hgb Hct MCV MCH MCHC RDW Lymph % (Auto) [place] % (Auto) Lymph # (Auto) [place] # (Auto) Baso # (Auto) Seg Neutrophils % Seg Neuts % (Manual) Lymphocytes % (Manual) Nucleated RBC % Seg Neutrophils # Seg Neutrophils # Man Lymphocytes # (Manual) Monocytes # (Manual) Eosinophils # (Manual) PT INR APTT D-Dimer Heparin Anti-Xa Level ABG pH POC ABG pCO2 POC ABG pO2 ABG pO2 ABG HCO3 ABG O2 Saturation ABG Base Excess ABG Hemoglobin ABG Oxyhemoglobin ABG Sodium ABG Potassium ABG Chloride ABG Glucose Oxyhemoglobin Carboxyhemoglobin Sodium Potassium 2.7 L* Chloride 94.0 L Carbon Dioxide 37 H BUN Creatinine 0.3 L Glucose 110 H POC Glucose 152 H 61 L Lactic Acid Calcium Magnesium Ferritin Total Bilirubin Direct Bilirubin AST ALT Alkaline Phosphatase Lactate Dehydrogenase C-Reactive Protein Total Protein Albumin Triglycerides Lipase Arterial Blood Glucose Arterial Blood Ionized Calcium Urine WBC (Auto) Coronavirus (PCR) SARS-CoV-2 IgG Ab Crossmatch 07/15/20 07/15/20 07/15/20 05:31 11:49 17:18 WBC RBC Hgb Hct MCV MCH MCHC RDW Lymph % (Auto) [place] % (Auto) Lymph # (Auto) [place] # (Auto) Baso # (Auto) Seg Neutrophils % Seg Neuts % (Manual) Lymphocytes % (Manual) Nucleated RBC % Seg Neutrophils # Seg Neutrophils # Man Lymphocytes # (Manual) Monocytes # (Manual) Eosinophils # (Manual) PT INR APTT D-Dimer Heparin Anti-Xa Level ABG pH POC ABG pCO2 POC ABG pO2 ABG pO2 ABG HCO3 ABG O2 Saturation ABG Base Excess ABG Hemoglobin ABG Oxyhemoglobin ABG Sodium ABG Potassium ABG Chloride ABG Glucose Oxyhemoglobin Carboxyhemoglobin Sodium Potassium 3.2 L Chloride 91.2 L Carbon Dioxide 33 H BUN Creatinine 0.3 L Glucose 139 H POC Glucose 148 H 196 H Lactic Acid Calcium Magnesium Ferritin Total Bilirubin Direct Bilirubin AST ALT Alkaline Phosphatase Lactate Dehydrogenase C-Reactive Protein Total Protein Albumin Triglycerides Lipase Arterial Blood Glucose Arterial Blood Ionized Calcium Urine WBC (Auto) Coronavirus (PCR) SARS-CoV-2 IgG Ab Crossmatch 07/15/20 07/16/20 07/16/20 23:08 05:18 05:19 WBC 11.3 H RBC 3.10 L Hgb 10.0 L Hct 30.3 L MCV 98 H MCH MCHC RDW 16.3 H Lymph % (Auto) [place] % (Auto) Lymph # (Auto) [place] # (Auto) Baso # (Auto) Seg Neutrophils % Seg Neuts % (Manual) Lymphocytes % (Manual) Nucleated RBC % Seg Neutrophils # Seg Neutrophils # Man Lymphocytes # (Manual) Monocytes # (Manual) Eosinophils # (Manual) PT INR APTT D-Dimer Heparin Anti-Xa Level ABG pH POC ABG pCO2 POC ABG pO2 ABG pO2 ABG HCO3 ABG O2 Saturation ABG Base Excess ABG Hemoglobin ABG Oxyhemoglobin ABG Sodium ABG Potassium ABG Chloride ABG Glucose Oxyhemoglobin Carboxyhemoglobin Sodium Potassium Chloride Carbon Dioxide BUN Creatinine Glucose POC Glucose 131 H 160 H Lactic Acid Calcium Magnesium Ferritin Total Bilirubin Direct Bilirubin AST ALT Alkaline Phosphatase Lactate Dehydrogenase C-Reactive Protein Total Protein Albumin Triglycerides Lipase Arterial Blood Glucose Arterial Blood Ionized Calcium Urine WBC (Auto) Coronavirus (PCR) SARS-CoV-2 IgG Ab Crossmatch 07/16/20 07/16/20 07/16/20 05:19 11:45 17:17 WBC RBC Hgb Hct MCV MCH MCHC RDW Lymph % (Auto) [place] % (Auto) Lymph # (Auto) [place] # (Auto) Baso # (Auto) Seg Neutrophils % Seg Neuts % (Manual) Lymphocytes % (Manual) Nucleated RBC % Seg Neutrophils # Seg Neutrophils # Man Lymphocytes # (Manual) Monocytes # (Manual) Eosinophils # (Manual) PT INR APTT D-Dimer Heparin Anti-Xa Level ABG pH POC ABG pCO2 POC ABG pO2 ABG pO2 ABG HCO3 ABG O2 Saturation ABG Base Excess ABG Hemoglobin ABG Oxyhemoglobin ABG Sodium ABG Potassium ABG Chloride ABG Glucose Oxyhemoglobin Carboxyhemoglobin Sodium 132 L Potassium 3.4 L Chloride 89.9 L Carbon Dioxide 39 H BUN Creatinine 0.3 L Glucose 174 H POC Glucose 169 H 143 H Lactic Acid Calcium Magnesium Ferritin Total Bilirubin Direct Bilirubin AST ALT Alkaline Phosphatase Lactate Dehydrogenase C-Reactive Protein Total Protein Albumin Triglycerides Lipase Arterial Blood Glucose Arterial Blood Ionized Calcium Urine WBC (Auto) Coronavirus (PCR) SARS-CoV-2 IgG Ab Crossmatch 07/16/20 07/17/20 07/17/20 23:54 05:32 11:26 WBC RBC Hgb Hct MCV MCH MCHC RDW Lymph % (Auto) [place] % (Auto) Lymph # (Auto) [place] # (Auto) Baso # (Auto) Seg Neutrophils % Seg Neuts % (Manual) Lymphocytes % (Manual) Nucleated RBC % Seg Neutrophils # Seg Neutrophils # Man Lymphocytes # (Manual) Monocytes # (Manual) Eosinophils # (Manual) PT INR APTT D-Dimer Heparin Anti-Xa Level ABG pH POC ABG pCO2 POC ABG pO2 ABG pO2 ABG HCO3 ABG O2 Saturation ABG Base Excess ABG Hemoglobin ABG Oxyhemoglobin ABG Sodium ABG Potassium ABG Chloride ABG Glucose Oxyhemoglobin Carboxyhemoglobin Sodium Potassium Chloride Carbon Dioxide BUN Creatinine Glucose POC Glucose 147 H 149 H 211 H Lactic Acid Calcium Magnesium Ferritin Total Bilirubin Direct Bilirubin AST ALT Alkaline Phosphatase Lactate Dehydrogenase C-Reactive Protein Total Protein Albumin Triglycerides Lipase Arterial Blood Glucose Arterial Blood Ionized Calcium Urine WBC (Auto) Coronavirus (PCR) SARS-CoV-2 IgG Ab Crossmatch 07/17/20 07/17/20 07/18/20 18:16 23:12 06:15 WBC RBC Hgb Hct MCV MCH MCHC RDW Lymph % (Auto) [place] % (Auto) Lymph # (Auto) [place] # (Auto) Baso # (Auto) Seg Neutrophils % Seg Neuts % (Manual) Lymphocytes % (Manual) Nucleated RBC % Seg Neutrophils # Seg Neutrophils # Man Lymphocytes # (Manual) Monocytes # (Manual) Eosinophils # (Manual) PT INR APTT D-Dimer Heparin Anti-Xa Level ABG pH POC ABG pCO2 POC ABG pO2 ABG pO2 ABG HCO3 ABG O2 Saturation ABG Base Excess ABG Hemoglobin ABG Oxyhemoglobin ABG Sodium ABG Potassium ABG Chloride ABG Glucose Oxyhemoglobin Carboxyhemoglobin Sodium Potassium Chloride Carbon Dioxide BUN Creatinine Glucose POC Glucose 161 H 136 H 108 H Lactic Acid Calcium Magnesium Ferritin Total Bilirubin Direct Bilirubin AST ALT Alkaline Phosphatase Lactate Dehydrogenase C-Reactive Protein Total Protein Albumin Triglycerides Lipase Arterial Blood Glucose Arterial Blood Ionized Calcium Urine WBC (Auto) Coronavirus (PCR) SARS-CoV-2 IgG Ab Crossmatch 07/18/20 07/18/20 07/18/20 08:47 08:47 11:50 WBC 17.7 H RBC 3.29 L Hgb 10.5 L Hct 31.8 L MCV 97 H MCH MCHC RDW 16.9 H Lymph % (Auto) [place] % (Auto) 8.6 H Lymph # (Auto) [place] # (Auto) 1.5 H Baso # (Auto) Seg Neutrophils % 74.6 H Seg Neuts % (Manual) Lymphocytes % (Manual) Nucleated RBC % Seg Neutrophils # 13.2 H Seg Neutrophils # Man Lymphocytes # (Manual) Monocytes # (Manual) Eosinophils # (Manual) PT INR APTT D-Dimer Heparin Anti-Xa Level ABG pH POC ABG pCO2 POC ABG pO2 ABG pO2 ABG HCO3 ABG O2 Saturation ABG Base Excess ABG Hemoglobin ABG Oxyhemoglobin ABG Sodium ABG Potassium ABG Chloride ABG Glucose Oxyhemoglobin Carboxyhemoglobin Sodium Potassium 2.8 L* Chloride 92.6 L Carbon Dioxide 40 H BUN Creatinine 0.3 L Glucose 177 H POC Glucose 178 H Lactic Acid Calcium Magnesium Ferritin Total Bilirubin Direct Bilirubin AST ALT Alkaline Phosphatase Lactate Dehydrogenase C-Reactive Protein Total Protein Albumin Triglycerides Lipase Arterial Blood Glucose Arterial Blood Ionized Calcium Urine WBC (Auto) Coronavirus (PCR) SARS-CoV-2 IgG Ab Crossmatch 07/18/20 07/18/20 07/19/20 17:18 23:33 05:22 WBC RBC Hgb Hct MCV MCH MCHC RDW Lymph % (Auto) [place] % (Auto) Lymph # (Auto) [place] # (Auto) Baso # (Auto) Seg Neutrophils % Seg Neuts % (Manual) Lymphocytes % (Manual) Nucleated RBC % Seg Neutrophils # Seg Neutrophils # Man Lymphocytes # (Manual) Monocytes # (Manual) Eosinophils # (Manual) PT INR APTT D-Dimer Heparin Anti-Xa Level ABG pH POC ABG pCO2 POC ABG pO2 ABG pO2 ABG HCO3 ABG O2 Saturation ABG Base Excess ABG Hemoglobin ABG Oxyhemoglobin ABG Sodium ABG Potassium ABG Chloride ABG Glucose Oxyhemoglobin Carboxyhemoglobin Sodium Potassium Chloride Carbon Dioxide BUN Creatinine Glucose POC Glucose 171 H 162 H 166 H Lactic Acid Calcium Magnesium Ferritin Total Bilirubin Direct Bilirubin AST ALT Alkaline Phosphatase Lactate Dehydrogenase C-Reactive Protein Total Protein Albumin Triglycerides Lipase Arterial Blood Glucose Arterial Blood Ionized Calcium Urine WBC (Auto) Coronavirus (PCR) SARS-CoV-2 IgG Ab Crossmatch 07/19/20 07/19/20 07/19/20 12:00 16:27 23:41 WBC RBC Hgb Hct MCV MCH MCHC RDW Lymph % (Auto) [place] % (Auto) Lymph # (Auto) [place] # (Auto) Baso # (Auto) Seg Neutrophils % Seg Neuts % (Manual) Lymphocytes % (Manual) Nucleated RBC % Seg Neutrophils # Seg Neutrophils # Man Lymphocytes # (Manual) Monocytes # (Manual) Eosinophils # (Manual) PT INR APTT D-Dimer Heparin Anti-Xa Level ABG pH POC ABG pCO2 POC ABG pO2 ABG pO2 ABG HCO3 ABG O2 Saturation ABG Base Excess ABG Hemoglobin ABG Oxyhemoglobin ABG Sodium ABG Potassium ABG Chloride ABG Glucose Oxyhemoglobin Carboxyhemoglobin Sodium Potassium Chloride Carbon Dioxide BUN Creatinine Glucose POC Glucose 201 H 205 H 106 H Lactic Acid Calcium Magnesium Ferritin Total Bilirubin Direct Bilirubin AST ALT Alkaline Phosphatase Lactate Dehydrogenase C-Reactive Protein Total Protein Albumin Triglycerides Lipase Arterial Blood Glucose Arterial Blood Ionized Calcium Urine WBC (Auto) Coronavirus (PCR) SARS-CoV-2 IgG Ab Crossmatch 07/20/20 07/20/20 07/20/20 05:28 11:18 17:30 WBC RBC Hgb Hct MCV MCH MCHC RDW Lymph % (Auto) [place] % (Auto) Lymph # (Auto) [place] # (Auto) Baso # (Auto) Seg Neutrophils % Seg Neuts % (Manual) Lymphocytes % (Manual) Nucleated RBC % Seg Neutrophils # Seg Neutrophils # Man Lymphocytes # (Manual) Monocytes # (Manual) Eosinophils # (Manual) PT INR APTT D-Dimer Heparin Anti-Xa Level ABG pH POC ABG pCO2 POC ABG pO2 ABG pO2 ABG HCO3 ABG O2 Saturation ABG Base Excess ABG Hemoglobin ABG Oxyhemoglobin ABG Sodium ABG Potassium ABG Chloride ABG Glucose Oxyhemoglobin Carboxyhemoglobin Sodium Potassium Chloride Carbon Dioxide BUN Creatinine Glucose POC Glucose 130 H 195 H 141 H Lactic Acid Calcium Magnesium Ferritin Total Bilirubin Direct Bilirubin AST ALT Alkaline Phosphatase Lactate Dehydrogenase C-Reactive Protein Total Protein Albumin Triglycerides Lipase Arterial Blood Glucose Arterial Blood Ionized Calcium Urine WBC (Auto) Coronavirus (PCR) SARS-CoV-2 IgG Ab Crossmatch 07/20/20 07/21/20 07/21/20 23:26 05:03 17:03 WBC RBC Hgb Hct MCV MCH MCHC RDW Lymph % (Auto) [place] % (Auto) Lymph # (Auto) [place] # (Auto) Baso # (Auto) Seg Neutrophils % Seg Neuts % (Manual) Lymphocytes % (Manual) Nucleated RBC % Seg Neutrophils # Seg Neutrophils # Man Lymphocytes # (Manual) Monocytes # (Manual) Eosinophils # (Manual) PT INR APTT D-Dimer Heparin Anti-Xa Level ABG pH POC ABG pCO2 POC ABG pO2 ABG pO2 ABG HCO3 ABG O2 Saturation ABG Base Excess ABG Hemoglobin ABG Oxyhemoglobin ABG Sodium ABG Potassium ABG Chloride ABG Glucose Oxyhemoglobin Carboxyhemoglobin Sodium Potassium Chloride Carbon Dioxide BUN Creatinine Glucose POC Glucose 116 H 142 H 181 H Lactic Acid Calcium Magnesium Ferritin Total Bilirubin Direct Bilirubin AST ALT Alkaline Phosphatase Lactate Dehydrogenase C-Reactive Protein Total Protein Albumin Triglycerides Lipase Arterial Blood Glucose Arterial Blood Ionized Calcium Urine WBC (Auto) Coronavirus (PCR) SARS-CoV-2 IgG Ab Crossmatch 07/21/20 07/22/20 07/22/20 23:51 06:09 11:40 WBC RBC Hgb Hct MCV MCH MCHC RDW Lymph % (Auto) [place] % (Auto) Lymph # (Auto) [place] # (Auto) Baso # (Auto) Seg Neutrophils % Seg Neuts % (Manual) Lymphocytes % (Manual) Nucleated RBC % Seg Neutrophils # Seg Neutrophils # Man Lymphocytes # (Manual) Monocytes # (Manual) Eosinophils # (Manual) PT INR APTT D-Dimer Heparin Anti-Xa Level ABG pH POC ABG pCO2 POC ABG pO2 ABG pO2 ABG HCO3 ABG O2 Saturation ABG Base Excess ABG Hemoglobin ABG Oxyhemoglobin ABG Sodium ABG Potassium ABG Chloride ABG Glucose Oxyhemoglobin Carboxyhemoglobin Sodium Potassium Chloride Carbon Dioxide BUN Creatinine Glucose POC Glucose 127 H 136 H 160 H Lactic Acid Calcium Magnesium Ferritin Total Bilirubin Direct Bilirubin AST ALT Alkaline Phosphatase Lactate Dehydrogenase C-Reactive Protein Total Protein Albumin Triglycerides Lipase Arterial Blood Glucose Arterial Blood Ionized Calcium Urine WBC (Auto) Coronavirus (PCR) SARS-CoV-2 IgG Ab Crossmatch 07/22/20 07/22/20 07/23/20 18:14 23:25 05:58 WBC 12.2 H RBC 3.44 L Hgb 10.9 L Hct 33.9 L MCV 99 H MCH MCHC RDW 16.9 H Lymph % (Auto) [place] % (Auto) 10.0 H Lymph # (Auto) [place] # (Auto) 1.2 H Baso # (Auto) Seg Neutrophils % Seg Neuts % (Manual) Lymphocytes % (Manual) Nucleated RBC % Seg Neutrophils # 8.3 H Seg Neutrophils # Man Lymphocytes # (Manual) Monocytes # (Manual) Eosinophils # (Manual) PT INR APTT D-Dimer Heparin Anti-Xa Level ABG pH POC ABG pCO2 POC ABG pO2 ABG pO2 ABG HCO3 ABG O2 Saturation ABG Base Excess ABG Hemoglobin ABG Oxyhemoglobin ABG Sodium ABG Potassium ABG Chloride ABG Glucose Oxyhemoglobin Carboxyhemoglobin Sodium Potassium Chloride Carbon Dioxide BUN Creatinine Glucose POC Glucose 189 H 164 H Lactic Acid Calcium Magnesium Ferritin Total Bilirubin Direct Bilirubin AST ALT Alkaline Phosphatase Lactate Dehydrogenase C-Reactive Protein Total Protein Albumin Triglycerides Lipase Arterial Blood Glucose Arterial Blood Ionized Calcium Urine WBC (Auto) Coronavirus (PCR) SARS-CoV-2 IgG Ab Crossmatch 07/23/20 07/23/20 07/23/20 05:58 06:02 12:14 WBC RBC Hgb Hct MCV MCH MCHC RDW Lymph % (Auto) [place] % (Auto) Lymph # (Auto) [place] # (Auto) Baso # (Auto) Seg Neutrophils % Seg Neuts % (Manual) Lymphocytes % (Manual) Nucleated RBC % Seg Neutrophils # Seg Neutrophils # Man Lymphocytes # (Manual) Monocytes # (Manual) Eosinophils # (Manual) PT INR APTT D-Dimer Heparin Anti-Xa Level ABG pH POC ABG pCO2 POC ABG pO2 ABG pO2 ABG HCO3 ABG O2 Saturation ABG Base Excess ABG Hemoglobin ABG Oxyhemoglobin ABG Sodium ABG Potassium ABG Chloride ABG Glucose Oxyhemoglobin Carboxyhemoglobin Sodium Potassium 2.9 L* Chloride 94.9 L Carbon Dioxide 33 H D BUN Creatinine 0.4 L Glucose 129 H POC Glucose 111 H 142 H Lactic Acid Calcium Magnesium Ferritin Total Bilirubin Direct Bilirubin AST ALT Alkaline Phosphatase Lactate Dehydrogenase C-Reactive Protein Total Protein Albumin 3.5 L Triglycerides Lipase Arterial Blood Glucose Arterial Blood Ionized Calcium Urine WBC (Auto) Coronavirus (PCR) SARS-CoV-2 IgG Ab Crossmatch 07/23/20 07/23/20 07/24/20 17:20 23:39 05:05 WBC 13.3 H RBC 3.40 L Hgb 10.8 L Hct 33.4 L MCV 98 H MCH MCHC RDW 16.7 H Lymph % (Auto) [place] % (Auto) 10.0 H Lymph # (Auto) [place] # (Auto) 1.3 H Baso # (Auto) Seg Neutrophils % Seg Neuts % (Manual) Lymphocytes % (Manual) Nucleated RBC % Seg Neutrophils # 9.0 H Seg Neutrophils # Man Lymphocytes # (Manual) Monocytes # (Manual) Eosinophils # (Manual) PT INR APTT D-Dimer Heparin Anti-Xa Level ABG pH POC ABG pCO2 POC ABG pO2 ABG pO2 ABG HCO3 ABG O2 Saturation ABG Base Excess ABG Hemoglobin ABG Oxyhemoglobin ABG Sodium ABG Potassium ABG Chloride ABG Glucose Oxyhemoglobin Carboxyhemoglobin Sodium Potassium Chloride Carbon Dioxide BUN Creatinine Glucose POC Glucose 150 H 120 H Lactic Acid Calcium Magnesium Ferritin Total Bilirubin Direct Bilirubin AST ALT Alkaline Phosphatase Lactate Dehydrogenase C-Reactive Protein Total Protein Albumin Triglycerides Lipase Arterial Blood Glucose Arterial Blood Ionized Calcium Urine WBC (Auto) Coronavirus (PCR) SARS-CoV-2 IgG Ab Crossmatch 07/24/20 07/24/20 07/24/20 05:05 05:39 11:30 WBC RBC Hgb Hct MCV MCH MCHC RDW Lymph % (Auto) [place] % (Auto) Lymph # (Auto) [place] # (Auto) Baso # (Auto) Seg Neutrophils % Seg Neuts % (Manual) Lymphocytes % (Manual) Nucleated RBC % Seg Neutrophils # Seg Neutrophils # Man Lymphocytes # (Manual) Monocytes # (Manual) Eosinophils # (Manual) PT INR APTT D-Dimer Heparin Anti-Xa Level ABG pH POC ABG pCO2 POC ABG pO2 ABG pO2 ABG HCO3 ABG O2 Saturation ABG Base Excess ABG Hemoglobin ABG Oxyhemoglobin ABG Sodium ABG Potassium ABG Chloride ABG Glucose Oxyhemoglobin Carboxyhemoglobin Sodium Potassium Chloride 97.4 L Carbon Dioxide BUN Creatinine 0.3 L Glucose 111 H POC Glucose 118 H 160 H Lactic Acid Calcium Magnesium Ferritin Total Bilirubin Direct Bilirubin AST ALT Alkaline Phosphatase Lactate Dehydrogenase C-Reactive Protein Total Protein Albumin Triglycerides Lipase Arterial Blood Glucose Arterial Blood Ionized Calcium Urine WBC (Auto) Coronavirus (PCR) SARS-CoV-2 IgG Ab Crossmatch 07/24/20 07/24/20 07/25/20 16:45 23:43 05:00 WBC RBC Hgb Hct MCV MCH MCHC RDW Lymph % (Auto) [place] % (Auto) Lymph # (Auto) [place] # (Auto) Baso # (Auto) Seg Neutrophils % Seg Neuts % (Manual) Lymphocytes % (Manual) Nucleated RBC % Seg Neutrophils # Seg Neutrophils # Man Lymphocytes # (Manual) Monocytes # (Manual) Eosinophils # (Manual) PT INR APTT D-Dimer Heparin Anti-Xa Level ABG pH POC ABG pCO2 POC ABG pO2 ABG pO2 ABG HCO3 ABG O2 Saturation ABG Base Excess ABG Hemoglobin ABG Oxyhemoglobin ABG Sodium ABG Potassium ABG Chloride ABG Glucose Oxyhemoglobin Carboxyhemoglobin Sodium Potassium Chloride Carbon Dioxide BUN Creatinine Glucose POC Glucose 181 H 122 H 114 H Lactic Acid Calcium Magnesium Ferritin Total Bilirubin Direct Bilirubin AST ALT Alkaline Phosphatase Lactate Dehydrogenase C-Reactive Protein Total Protein Albumin Triglycerides Lipase Arterial Blood Glucose Arterial Blood Ionized Calcium Urine WBC (Auto) Coronavirus (PCR) SARS-CoV-2 IgG Ab Crossmatch 07/25/20 07/25/20 07/25/20 11:44 16:44 23:41 WBC RBC Hgb Hct MCV MCH MCHC RDW Lymph % (Auto) [place] % (Auto) Lymph # (Auto) [place] # (Auto) Baso # (Auto) Seg Neutrophils % Seg Neuts % (Manual) Lymphocytes % (Manual) Nucleated RBC % Seg Neutrophils # Seg Neutrophils # Man Lymphocytes # (Manual) Monocytes # (Manual) Eosinophils # (Manual) PT INR APTT D-Dimer Heparin Anti-Xa Level ABG pH POC ABG pCO2 POC ABG pO2 ABG pO2 ABG HCO3 ABG O2 Saturation ABG Base Excess ABG Hemoglobin ABG Oxyhemoglobin ABG Sodium ABG Potassium ABG Chloride ABG Glucose Oxyhemoglobin Carboxyhemoglobin Sodium Potassium Chloride Carbon Dioxide BUN Creatinine Glucose POC Glucose 298 H 166 H 133 H Lactic Acid Calcium Magnesium Ferritin Total Bilirubin Direct Bilirubin AST ALT Alkaline Phosphatase Lactate Dehydrogenase C-Reactive Protein Total Protein Albumin Triglycerides Lipase Arterial Blood Glucose Arterial Blood Ionized Calcium Urine WBC (Auto) Coronavirus (PCR) SARS-CoV-2 IgG Ab Crossmatch 07/26/20 07/26/20 07/26/20 05:17 11:17 18:07 WBC RBC Hgb Hct MCV MCH MCHC RDW Lymph % (Auto) [place] % (Auto) Lymph # (Auto) [place] # (Auto) Baso # (Auto) Seg Neutrophils % Seg Neuts % (Manual) Lymphocytes % (Manual) Nucleated RBC % Seg Neutrophils # Seg Neutrophils # Man Lymphocytes # (Manual) Monocytes # (Manual) Eosinophils # (Manual) PT INR APTT D-Dimer Heparin Anti-Xa Level ABG pH POC ABG pCO2 POC ABG pO2 ABG pO2 ABG HCO3 ABG O2 Saturation ABG Base Excess ABG Hemoglobin ABG Oxyhemoglobin ABG Sodium ABG Potassium ABG Chloride ABG Glucose Oxyhemoglobin Carboxyhemoglobin Sodium Potassium Chloride Carbon Dioxide BUN Creatinine Glucose POC Glucose 113 H 157 H 154 H Lactic Acid Calcium Magnesium Ferritin Total Bilirubin Direct Bilirubin AST ALT Alkaline Phosphatase Lactate Dehydrogenase C-Reactive Protein Total Protein Albumin Triglycerides Lipase Arterial Blood Glucose Arterial Blood Ionized Calcium Urine WBC (Auto) Coronavirus (PCR) SARS-CoV-2 IgG Ab Crossmatch 07/26/20 07/27/20 07/27/20 23:44 08:26 08:26 WBC RBC 3.63 L Hgb Hct MCV 98 H MCH MCHC RDW 17.5 H Lymph % (Auto) [place] % (Auto) 10.6 H Lymph # (Auto) [place] # (Auto) 1.1 H Baso # (Auto) Seg Neutrophils % Seg Neuts % (Manual) Lymphocytes % (Manual) Nucleated RBC % Seg Neutrophils # Seg Neutrophils # Man Lymphocytes # (Manual) Monocytes # (Manual) Eosinophils # (Manual) PT INR APTT D-Dimer Heparin Anti-Xa Level ABG pH POC ABG pCO2 POC ABG pO2 ABG pO2 ABG HCO3 ABG O2 Saturation ABG Base Excess ABG Hemoglobin ABG Oxyhemoglobin ABG Sodium ABG Potassium ABG Chloride ABG Glucose Oxyhemoglobin Carboxyhemoglobin Sodium Potassium Chloride 97.9 L Carbon Dioxide 37 H D BUN Creatinine 0.4 L Glucose 115 H POC Glucose 148 H Lactic Acid Calcium Magnesium Ferritin Total Bilirubin Direct Bilirubin AST ALT Alkaline Phosphatase Lactate Dehydrogenase C-Reactive Protein Total Protein Albumin Triglycerides Lipase Arterial Blood Glucose Arterial Blood Ionized Calcium Urine WBC (Auto) Coronavirus (PCR) SARS-CoV-2 IgG Ab Crossmatch 07/27/20 07/27/20 07/27/20 11:41 16:50 23:22 WBC RBC Hgb Hct MCV MCH MCHC RDW Lymph % (Auto) [place] % (Auto) Lymph # (Auto) [place] # (Auto) Baso # (Auto) Seg Neutrophils % Seg Neuts % (Manual) Lymphocytes % (Manual) Nucleated RBC % Seg Neutrophils # Seg Neutrophils # Man Lymphocytes # (Manual) Monocytes # (Manual) Eosinophils # (Manual) PT INR APTT D-Dimer Heparin Anti-Xa Level ABG pH POC ABG pCO2 POC ABG pO2 ABG pO2 ABG HCO3 ABG O2 Saturation ABG Base Excess ABG Hemoglobin ABG Oxyhemoglobin ABG Sodium ABG Potassium ABG Chloride ABG Glucose Oxyhemoglobin Carboxyhemoglobin Sodium Potassium Chloride Carbon Dioxide BUN Creatinine Glucose POC Glucose 169 H 132 H 120 H Lactic Acid Calcium Magnesium Ferritin Total Bilirubin Direct Bilirubin AST ALT Alkaline Phosphatase Lactate Dehydrogenase C-Reactive Protein Total Protein Albumin Triglycerides Lipase Arterial Blood Glucose Arterial Blood Ionized Calcium Urine WBC (Auto) Coronavirus (PCR) SARS-CoV-2 IgG Ab Crossmatch Allied health notes reviewed: nursing
[2020-07-29] MEDS: INSULIN LISPRO 100 UNIT/ML VIAL 3 mL SUB-Q SCH ×4 (00:14→18:31)
[2020-07-29] MEDS: FOLIC ACID 1 MG TAB PO SCH (09:56)
[2020-07-29] MEDS: guaiFENesin ER 600 MG TAB PO SCH ×2 (09:56→21:55)
[2020-07-29] MEDS: LANSOPRAZOLE 30 MG SOLUTAB FEEDTUBE SCH (09:56)
[2020-07-29] MEDS: MIDODRINE 5 MG TAB PO SCH ×3 (10:00→16:55)
[2020-07-29] MEDS: QUEtiapine 200 MG TAB PO SCH (10:00)
[2020-07-29] MEDS: METOPROLOL TARTRATE 25 MG TAB PO SCH ×2 (10:00→23:59)
[2020-07-29] MEDS: PHENobarbital 32.4 MG TAB PO SCH ×2 (10:00→21:54)
[2020-07-29] MEDS: ENOXAPARIN 80 MG/0.8 ML INJ SUB-Q SCH (10:01)
[2020-07-29] MEDS: ENOXAPARIN 30 MG/0.3 ML INJ SUB-Q SCH (10:01)
[2020-07-29] MEDS: methylPREDNISolone Sod Succinate 40 MG/1 ML INJ IV SCH (10:05)
--- NOTE | 2020-07-29 10:47 | Progress Note ---
Assessment and Plan Assessment and plan: Positive COVID-19 test; 05/10/2020 Negative COVID-19 test; 06/30/2020 --Acute hypoxemic respiratory failure; on 10 L oxygen Continue to wean the oxygen dose, supportive care Pulmonary following --Pneumothorax status post right chest tube Chest tube removed 07/23/2020 Post removal chest x-ray no pneumothorax Patient is requiring 10 L nasal cannula oxygen Wean oxygen as tolerated --Severe hypokalemia; resolved Monitor electrolytes, treat as needed --Sinus tachycardia: Significantly improved HR 80s - 110, monitor --Severe COVID-19 bilateral pneumonia Coronavirus protocol: IV steroid therapy, completed remdesivir, isolation precautions, contact precautions, prone positioning while in bed, pulmonary toilet. ID following SARS CoV-2 IgG positive patient is NOT a candidate for convalescent plasma --Elevated D-dimers/hyper coag state; Empiric anticoagulation with full dose Lovenox Patient is stable now, we will check CTA chest To evaluate for PE, LE venous Doppler negative for DVT --Pseudomonas bacteremia; ID following, completed cefepime Monitor off antibiotics --Severe sepsis/septic shock, monitor off pressors Completed cefepime, monitor off antibiotics -- Acute kidney injury (SEN) , likely vasomotor nephropathy Resolved, avoid nephrotoxins --Acute on chronic anemia Guaiac test positive, GI evaluated the patient Patient H&H is normal range now Hb 11.8 -- Elevated liver function tests; resolved LFTs within normal limits Probably secondary to alcoholic liver disease. --Colonic distention GI evaluated colonic distention resolved recommend stool softeners -- DVT prophylaxis On therapeutic Lovenox Closely monitor the patient and adjust management as needed Chest tube removed Patient on 10 L nasal cannula oxygen, wean as tolerated Elevated D-dimers, on empiric therapeutic Lovenox Will check CTA chest and adjust as needed Physical therapy, Occupational Therapy, pending placement when medically stable Plan of care reviewed with the patient and his nurse Brief history and hospital course; 50 YO Male with Obesity, ETOH Dependence presents to ED for evaluation. Patient states that he has experienced shortness of breath, generalized weakness, fatigue, malaise, body aches, decreased exercise tolerance over the past 5 days with persistently worsening symptoms over the same timeframe. EMS was notified and upon arrival the patient was found to be in distress with a pulse oximetry of 76% on room air as well as fever to 103 F. Patient was placed on supplemental oxygen and subsequently transported to [facility] for further care and e valuation. Patient seen and evaluated in the emergency department. All lab and imaging studies reviewed. Patient underwent chest x-ray and was found to have bilateral pneumonia. Patient also found to have a pulse oximetry of 86% on 4 L nasal cannula. Patient initiated on a high flow submental oxygen with improvement of pulse oximetry. Patient admitted to medical floor and initiated on pneumonia protocol as well as COVID-19 protocol. Patient also found to have acute kidney injury as well as elevated liver function test suspected secondary to alcohol dependence. Patient reports being diagnosed with coronavirus 2 days ago. No prior admission for review. 06/16/2020. Patient currently on mechanical ventilation with AC mode rate 30, tidal volume 500, FiO2 70% and PEEP of 16. Continue anticoagulation with Lovenox 110 milligrams subcu every 12 hours. Wean sedation of fentanyl/Versed as needed. Currently with IV steroids of Solu-Medrol 40 mg IV every 12 hours. Patient will likely need tracheostomy per pulmonary recommendations. Continue pressors to maintain MAP > 65. 06/17/2020. Patient currently on mechanical ventilation with AC mode rate 30, tidal volume 500, FiO2 65% and PEEP of 16. Continue anticoagulation with Loveno x 110 milligrams subcu every 12 hours. Wean sedation of fentanyl/Versed as needed. Currently with IV steroids of Solu-Medrol 40 mg IV every 12 hours. Patient will likely need tracheostomy per pulmonary recommendations. 06/18/2020. Patient currently on mechanical ventilation with AC mode rate 30, tidal volume 500, FiO2 70% and PEEP of 16. Continue Lovenox for anticoagulation and fentanyl/Versed for sedation. Wean steroids per pulmonary. CIWA protocol initiated for history of EtOH dependence 06/19/2020. Patient currently on mechanical ventilation with AC mode rate 30, tidal volume 500, FiO2 60% and PEEP of 16. Wean FiO2 as tolerated per protocol. Continue Lovenox for anticoagulation and fentanyl/Versed for sedation. Wean steroids per pulmonary. CIWA protocol initiated for history of EtOH dependence 06/20/2020. Patient currently on mechanical ventilation with AC mode rate 30, tidal volume 500, FiO2 60% and PEEP of 16. Wean FiO2 as tolerated, SBT per protocol. Continue Lovenox for anticoagulation and fentanyl/Versed for sedation. Wean steroids per pulmonary. Continue pressors to maintain MAP > 65 mmHg. Patient remains on ETT. Consider tracheostomy placement once oxygenation is better per pulmonary. CIWA protocol initiated for history of EtOH dependence. 06/21/2020. Patient with a small apical pneumothorax discovered yesterday. General surgery consulted and consider placing chest tube. Follow-up serial chest x-ray patient currently on mechanical ventilation with AC mode rate 30, tidal volume 500, FiO2 60% and PEEP of 16. Wean FiO2 as tolerated, SBT per protocol. Continue Lovenox for anticoagulation and fentanyl/Versed for sedation. Wean steroids per pulmonary. Continue pressors to maintain MAP > 65 mmHg. Patient remains on ETT. Consider tracheostomy placement once oxygenation is better per pulmonary. CIWA protocol initiated for history of EtOH dependence. 06/22. Status post right chest tube placement yesterday. Remains mechanically ventilated on pressors. Examination today shows slightly distended abdomen. KUB ordered. Awaiting stool guaiac. Plan to get a GI evaluation. 06/23. Has colonic distention on the x-ray. Discussed with GI-advised stool softeners for now and close monitoring. No indication for colonic decompression at this time. Guaiac test is positive. No emergent indication for endoscopy at this point as per GI. Continue to monitor hemoglobin. 06/24. Remains intubated. On pressors. GI following for positive guaiac stool and anemia, and colonic distention. 06/25. Repeat abdominal xray ordered. Remains on mechanical ventilation. 06/26. Abdominal xray - resolved colonic distension. Mechanically ventilated. 06/27. Plan for trach and PEG. 06/28: Awaiting trach and Peg. S\ome Bm REPORTED, will continue to monitor 06/29: Resume care, patient remains on ventilator support, waiting on trach and PEG placement. BM reported by the RN, continue to monitor. 06/30: Unable to wean off from vent, patient will need trach and PEG. Continue supportive care, tolerating tube feed. Monitor CBC and BMP 07/01: Continue mechanical ventilation, tube feeding as tolerated. Sedation as needed per mechanical ventilation protocol. Waiting on trach and PEG placement. 07/02: Continue current management, tube feeding, monitor CBC and BMP. Need trach and PEG-waiting on scheduling. Pulmonary critical care following. 07/03: wean off vent as tolerated. follow clinically. need trach and PEG 07/04: unable to wean. CT head ordered to assess for any changes but too unstable to do the test. need trach and PEG. 07/05: plan for trach/peg - GS following. off pressor - on midodrine. renal function stable. intubated, but alert and can follow minor commend. discussed with daughter by phone. 07/06/2020; Dr. Márquez discussed with patient's daughter about trach but the daughter needs time to think about it. Patient was intubated and alert, FiO2 40%. 07/07/2020; patient was intubated and alert, FiO2 40%. Patient was diaphoretic, tachycardic, and EKG was done which was abnormal for me. I called pilot submersible Dr Louis saw the EKG and said it is normal EKG, and the findings are abnormal. 07/08/2020; no significant change, patient is intubated and alert. 12: Patient continues on current management. Pulmonary recommending trach and PEG awaiting patient's decision on this. Will check intermittent labs 07/11: Ordered CT still pending. Patient was agitated at night. Appears to have calmed down. Will repeat labs today. 07/12: Continue supportive care, awaiting CPAP trial. discussed with pulmonary. Obtain labs today. Trach and Peg planned 07/13: Continues to current management, PLAN FOR Trach and PEG on Sunday if patient is not able to liberated from the ventilator, Continue to monitor Fever curve and repeat Sepsis work up if persistent fever 07/14: Now extubated, continue to work up. 07/15: Clinical stable for transfer to [facility], still with fever and now showing bactermia. Continue Abx per ID. monitor fever 07/16: Continue supportive care. MONITOR FEVER CURVE, Adjust antibiotics as tolerated 07/17: Chest tube remains in place. More lethargic, Requested BIPAP to bedside, Chest tube to be discontinued, Awaiting Pysch input. 07/18: Chest tube remains in place repeat chest x-ray shows persistent bilateral opacity with mild improvement. Continue nebulizer treatments. Hypokalemia also noted will replace. Pulmonary and surgical input noted 07/19: Patient is a 50-year-old male admitted with shortness of breath ended up on mechanical ventilation noted to have pneumothorax has a chest tube in place. Has been successfully extubated but remains with delirium secondary to medical condition and also mild to moderate respiratory distress on Venturi mask. Continue weaning attempts. Patient still with chest tube. Continue serial x- rays. Will discuss with case management about possible LTAC placement. Blood cultures are currently returning Pseudomonas species. ID is following. 07/20/2020; patient continues to feel better, high flow oxygen and BiPAP Chest tube in place, continue current management, pulmonary surgery following 07/21/2020:Patient remains on High flow o2 07/22/2020; patient remains on high flow oxygen 8 L 100% O2 sat 93% Case management checking for LTAC placement 07/23/2020; patient remains on high flow oxygen, wean oxygen as tolerated, severe hypokalemia Replenish per protocol monitor levels 07/24/2020; patient had chest tube removal yesterday 07/23/2019 and, post removal chest x-ray no pneumothorax no acute abnormalities Patient feels slightly better continues to require high flow oxygen Wean as tolerated, physical and occupational therapy, DC planning 07/26/2020; patient on 3 L nasal cannula oxygen, patient feels better 07/27/2020; patient was saturating well on 3 L of nasal cannula oxygen, however today patient is on high flow oxygen 15 L Complains of some congestion, wean oxygen levels to 3-5 as tolerated Discharge planning LTAC has refused patient,Possible home with home health versus placement when medically stable 07/28/2020; continue to wean oxygen, patient is on 10 L, awaiting placement 07/29/2020; continues to be on 10 L nasal cannula oxygen, wean as tolerated Patient is on empiric therapeutic dose Lovenox, due to elevated D-dimers Patient is stable for CTA chest today, follow the report and adjust Lovenox as needed DC planning per case management, with pending placement History Interval history: I seen and examined the patient at the bedside Patient's chart and medications reviewed Patient feels slightly better continues to be on 10 L of nasal cannula oxygen Reduced to 7 L today No new complaints Anxious to be discharged Vital signs noted Hospitalist Physical - Constitutional Vitals: Temp Pulse Resp BP Pulse Ox 98.3 F 97 H 20 117/76 93 07/29/20 07:49 07/29/20 10:10 07/29/20 07:49 07/29/20 07:49 07/29/20 08:32 General appearance: Present: no acute distress, well-nourished, other (On 10 L oxygen) - EENT Eyes: Present: PERRL, EOM intact - Neck Neck: Present: supple, normal ROM - Respiratory Respiratory effort: normal Respiratory: bilateral: diminished, negative: rales, rhonchi, wheezing - Cardiovascular Rhythm: regular Heart Sounds: Present: S1 & S2 - Extremities Extremities: no ischemia, No edema - Abdominal General gastrointestinal: soft, non-tender, non-distended, normal bowel sounds - Integumentary Integumentary: Present: clear, warm - Psychiatric Psychiatric: appropriate mood/affect, cooperative - Neurologic Neurologic: CNII-XII intact, moves all extremities HEART Score - HEART Score Troponin: Troponin T 0.015 ng/mL (0.00-0.029) 07/07/20 10:00 Results - Labs CBC & Chem 7: 07/27/20 08:26 07/27/20 08:26 Labs: Laboratory Last Values WBC 10.6 K/mm3 (4.5-11.0) 07/27/20 08:26 RBC 3.63 M/mm3 (3.65-5.03) L 07/27/20 08:26 Hgb 11.8 gm/dl (11.8-15.2) 07/27/20 08:26 Hct 35.7 % (35.5-45.6) 07/27/20 08:26 MCV 98 fl (84-94) H 07/27/20 08:26 MCH 32 pg (28-32) 07/27/20 08:26 MCHC 33 % (32-34) 07/27/20 08:26 RDW 17.5 % (13.2-15.2) H 07/27/20 08:26 Plt Count 354 K/mm3 (140-440) 07/27/20 08:26 Lymph % (Auto) 19.5 % (13.4-35.0) 07/27/20 08:26 Wayne % (Auto) 10.6 % (0.0-7.3) H 07/27/20 08:26 Eos % (Auto) 2.5 % (0.0-4.3) 07/27/20 08:26 Baso % (Auto) 0.5 % (0.0-1.8) 07/27/20 08:26 Lymph # (Auto) 2.1 K/mm3 (1.2-5.4) 07/27/20 08:26 Wayne # (Auto) 1.1 K/mm3 (0.0-0.8) H 07/27/20 08:26 Eos # (Auto) 0.3 K/mm3 (0.0-0.4) 07/27/20 08:26 Baso # (Auto) 0.1 K/mm3 (0.0-0.1) 07/27/20 08:26 Add Manual Diff Complete 07/13/20 08:31 Total Counted 100 07/13/20 08:31 Seg Neutrophils % 66.9 % (40.0-70.0) 07/27/20 08:26 Seg Neuts % (Manual) 96.0 % (40.0-70.0) H 07/13/20 08:31 Band Neutrophils % 0 % 07/13/20 08:31 Lymphocytes % (Manual) 2.0 % (13.4-35.0) L 07/13/20 08:31 Reactive Lymphs % (Man) 0 % 07/13/20 08:31 Monocytes % (Manual) 2.0 % (0.0-7.3) 07/13/20 08:31 Eosinophils % (Manual) 0 % (0.0-4.3) 07/13/20 08:31 Basophils % (Manual) 0 % (0.0-1.8) 07/13/20 08:31 Metamyelocytes % 0 % 07/13/20 08:31 Myelocytes % 0 % 07/13/20 08:31 Promyelocytes % 0 % 07/13/20 08:31 Blast Cells % 0 % 07/13/20 08:31 Nucleated RBC % Not Reportable 07/13/20 08:31 Seg Neutrophils # 7.1 K/mm3 (1.8-7.7) 07/27/20 08:26 Seg Neutrophils # Man 20.4 K/mm3 (1.8-7.7) H 07/13/20 08:31 Band Neutrophils # 0.0 K/mm3 07/13/20 08:31 Lymphocytes # (Manual) 0.4 K/mm3 (1.2-5.4) L 07/13/20 08:31 Abs React Lymphs (Man) 0.0 K/mm3 07/13/20 08:31 Monocytes # (Manual) 0.4 K/mm3 (0.0-0.8) 07/13/20 08:31 Eosinophils # (Manual) 0.0 K/mm3 (0.0-0.4) 07/13/20 08:31 Basophils # (Manual) 0.0 K/mm3 (0.0-0.1) 07/13/20 08:31 Metamyelocytes # 0.0 K/mm3 07/13/20 08:31 Myelocytes # 0.0 K/mm3 07/13/20 08:31 Promyelocytes # 0.0 K/mm3 07/13/20 08:31 Blast Cells # 0.0 K/mm3 07/13/20 08:31 WBC Morphology Not Reportable 07/13/20 08:31 Hypersegmented Neuts Not Reportable 07/13/20 08:31 Hyposegmented Neuts Not Reportable 07/13/20 08:31 Hypogranular Neuts Not Reportable 07/13/20 08:31 Smudge Cells Not Reportable 07/13/20 08:31 Toxic Granulation Not Reportable 07/13/20 08:31 Toxic Vacuolation Not Reportable 07/13/20 08:31 Dohle Bodies Not Reportable 07/13/20 08:31 Pelger-Huet Anomaly Not Reportable 07/13/20 08:31 Jason Rods Not Reportable 07/13/20 08:31 Platelet Estimate Consistent w auto 07/13/20 08:31 Clumped Platelets Not Reportable 07/13/20 08:31 Plt Clumps, EDTA Not Reportable 07/13/20 08:31 Large Platelets Not Reportable 07/13/20 08:31 Giant Platelets Not Reportable 07/13/20 08:31 Platelet Satelliting Not Reportable 07/13/20 08:31 Plt Morphology Comment Not Reportable 07/13/20 08:31 RBC Morphology Not Reportable 07/13/20 08:31 Dimorphic RBCs Not Reportable 07/13/20 08:31 Polychromasia Not Reportable 07/13/20 08:31 Hypochromasia Not Reportable 07/13/20 08:31 Poikilocytosis Not Reportable 07/13/20 08:31 Anisocytosis Not Reportable 07/13/20 08:31 Microcytosis Not Reportable 07/13/20 08:31 Macrocytosis Not Reportable 07/13/20 08:31 Spherocytes Not Reportable 07/13/20 08:31 Pappenheimer Bodies Not Reportable 07/13/20 08:31 Sickle Cells Not Reportable 07/13/20 08:31 Target Cells Not Reportable 07/13/20 08:31 Tear Drop Cells Not Reportable 07/13/20 08:31 Ovalocytes Not Reportable 07/13/20 08:31 Stomatocytes Few 07/13/20 08:31 Helmet Cells Not Reportable 07/13/20 08:31 Sinclair-Bessemer Bodies Not Reportable 07/13/20 08:31 [employer] Rings Not Reportable 07/13/20 08:31 Izabella Cells Not Reportable 07/13/20 08:31 Bite Cells Not Reportable 07/13/20 08:31 Crenated Cell Not Reportable 07/13/20 08:31 Elliptocytes Not Reportable 07/13/20 08:31 Acanthocytes (Spur) Not Reportable 07/13/20 08:31 Rouleaux Not Reportable 07/13/20 08:31 Hemoglobin C Crystals Not Reportable 07/13/20 08:31 Schistocytes Not Reportable 07/13/20 08:31 Malaria parasites Not Reportable 07/13/20 08:31 Josue Bodies Not Reportable 07/13/20 08:31 Hem Pathologist Commnt No 07/13/20 08:31 PT 11.8 Sec. (12.2-14.9) L 06/22/20 14:29 INR 0.88 (0.87-1.13) 06/22/20 14:29 APTT 23.5 Sec. (24.2-36.6) L 06/22/20 14:29 D-Dimer 1887.82 ng/mlDDU (0-234) H 05/20/20 08:16 Heparin Anti-Xa Level 0.37 U.I./ml (0.3-0.7) 07/02/20 16:08 ABG pH 7.477 (7.320-7.450) H 07/13/20 13:52 POC ABG pCO2 54.4 mmHg (32.0-48.0) H 07/13/20 13:52 ABG pCO2 53.1 mm Hg 07/08/20 Unknown POC ABG pO2 126.8 mmHg (83-108) H 07/13/20 13:52 ABG pO2 75.3 mm Hg (80.0-90.0) L 07/08/20 Unknown POC ABG HCO3 39.3 07/13/20 13:52 ABG HCO3 34.3 mmol/L (20.0-26.0) H 07/08/20 Unknown ABG O2 Saturation 96.5 % (95.0-99.0) 07/08/20 Unknown ABG O2 Content 13.5 (0.0-44) 07/08/20 Unknown POC ABG Base Excess 13.8 07/13/20 13:52 ABG Base Excess 8.7 mmol/L (-2.0-3.0) H 07/08/20 Unknown ABG Hemoglobin 11.5 (12.0-17.5) L 07/13/20 13:52 ABG Oxyhemoglobin 97.7 (94-98) 07/13/20 13:52 ABG Carboxyhemoglobin 2.4 % (0.0-5.0) 07/08/20 Unknown ABG Methemoglobin 0 (0.0-1.5) 07/13/20 13:52 ABG Sodium 136.2 mmol/L (136.0-145.0) 07/13/20 13:52 ABG Potassium 3.2 mmol/L (3.40-4.50) L 07/13/20 13:52 ABG Chloride 92.0 mmol/L (98-107) L 07/13/20 13:52 ABG Glucose 169 mg/dL (65-95) H 07/13/20 13:52 Oxyhemoglobin 93.7 % (95.0-99.0) L 07/08/20 Unknown Carboxyhemoglobin 1.2 (0.5-1.5) 07/13/20 13:52 FiO2 45 07/13/20 13:52 Sodium 143 mmol/L (137-145) 07/27/20 08:26 Potassium 3.6 mmol/L (3.6-5.0) 07/27/20 08:26 Chloride 97.9 mmol/L (98-107) L 07/27/20 08:26 Carbon Dioxide 37 mmol/L (22-30) H D 07/27/20 08:26 Anion Gap 12 mmol/L 07/27/20 08:26 BUN 9 mg/dL (9-20) 07/27/20 08:26 Creatinine 0.4 mg/dL (0.8-1.3) L 07/27/20 08:26 Estimated GFR > 60 ml/min 07/27/20 08:26 BUN/Creatinine Ratio 23 % 07/27/20 08:26 Glucose 115 mg/dL (75-100) H 07/27/20 08:26 POC Glucose 90 mg/dL (70-105) 07/29/20 06:26 Lactic Acid 0.80 mmol/L (0.7-2.0) 07/13/20 15:45 Calcium 9.6 mg/dL (8.4-10.2) 07/27/20 08:26 Phosphorus 3.10 mg/dL (2.5-4.5) 06/15/20 04:00 Magnesium 2.00 mg/dL (1.7-2.3) 07/24/20 05:05 Ferritin 1496.0 ng/mL (30.0-300.0) H 06/14/20 11:50 Total Bilirubin 0.20 mg/dL (0.1-1.2) 07/23/20 05:58 Direct Bilirubin 0.6 mg/dL (0-0.2) H 05/11/20 07:30 Indirect Bilirubin 0.9 mg/dL 05/11/20 07:30 AST 18 units/L (5-40) 07/23/20 05:58 ALT 55 units/L (7-56) 07/23/20 05:58 Alkaline Phosphatase 67 units/L (35-129) 07/23/20 05:58 Lactate Dehydrogenase 705 units/L (91-180) H 05/20/20 08:16 Troponin T 0.015 ng/mL (0.00-0.029) 07/07/20 10:00 C-Reactive Protein 3.10 mg/dL (0.00-1.30) H 05/20/20 08:16 Total Protein 6.4 g/dL (6.3-8.2) 07/23/20 05:58 Albumin 3.5 g/dL (3.9-5) L 07/23/20 05:58 Albumin/Globulin Ratio 1.2 % 07/23/20 05:58 Triglycerides 452 mg/dL (2-149) H 06/30/20 07:00 Lipase 86 units/L (13-60) H 06/29/20 09:36 Procalcitonin 2.15 ng/mL (<0.15) 07/15/20 05:31 Arterial Blood Glucose 169 mg/dL (65-95) H 07/13/20 13:52 Arterial Blood Ionized Calcium 4.8 mg/dL (4.6-5.3) 07/13/20 13:52 Urine Color Fauzia (Yellow) 05/10/20 Unknown Urine Turbidity Clear (Clear) 05/10/20 Unknown Urine pH 5.0 (5.0-7.0) 05/10/20 Unknown Ur Specific [place] 1.019 (1.003-1.030) 05/10/20 Unknown Urine Protein 100 mg/dl mg/dL (Negative) 05/10/20 Unknown Urine Glucose (UA) Neg mg/dL (Negative) 05/10/20 Unknown Urine Ketones Neg mg/dL (Negative) 05/10/20 Unknown Urine Blood Lg (Negative) 05/10/20 Unknown Urine Nitrite Neg (Negative) 05/10/20 Unknown Urine Bilirubin Neg (Negative) 05/10/20 Unknown Urine Urobilinogen 2.0 mg/dL (<2.0) 05/10/20 Unknown Ur Leukocyte Esterase Neg (Negative) 05/10/20 Unknown Urine WBC (Auto) 11.0 /HPF (0.0-6.0) H 05/10/20 Unknown Urine RBC (Auto) 2.0 /HPF (0.0-6.0) 05/10/20 Unknown U Epithel Cells (Auto) 1.0 /HPF (0-13.0) 05/10/20 Unknown Urine Bacteria (Auto) 1+ /HPF (Negative) 05/10/20 Unknown Urine Mucus Few /HPF 05/10/20 Unknown Plasma/Serum Alcohol < 0.01 % (0-0.07) 05/09/20 14:20 Coronavirus (PCR) Negative (Negative) 06/30/20 10:28 Hepatitis A Ab Total Nonreactive (Nonreactive) 07/09/20 Unknown Hep B Core Total Ab Nonreactive (Nonreactive) 07/09/20 Unknown Hepatitis C RNA Quant See scanned result 07/09/20 Unknown SARS-CoV-2 IgG Ab Reactive (NonReactive) A 05/11/20 07:30 Blood Type B POSITIVE 06/21/20 14:18 Antibody Screen Negative 06/21/20 14:18 Crossmatch See Detail 06/21/20 14:18 Microbiology: Microbiology 07/13/20 Unknown Peripheral/Venous Blood Culture - Final Pseudomonas Aeruginosa 07/13/20 Unknown Peripheral/Venous Blood Culture - Final Pseudomonas Aeruginosa - Diagnostic Impressions Diagnostic Impressions: Echocardiogram 05/20/20 13:02 Transthoracic Echocardiogram Indication: CHF BP: 97/73 Conclusions *The study quality is technically very difficult and limited. *The left ventricular chamber size, wall thickness and systolic function are within normal limits. There are no wall motion abnormalities observed. Ejection fraction is normal. *The estimated ejection fraction is 60-65%. *The pericardium appears normal. Findings Procedure Info: The study quality is technically difficult. Left Ventricle: The left ventricular chamber size, wall thickness and systolic function are within normal limits. There are no wall motion abnormalities observed. Ejection fraction is normal. The estimated ejection fraction is 60-65%. Abnormal left ventricular diastolic filling is observed, consistent with impaired relaxation. Left Atrium: The left atrium is normal in size with no visual thrombus identified. Right Ventricle: The right ventricle is not well visualized. Right Atrium: The right atrium is not well visualized. Aortic Valve: The aortic valve is trileaflet. The leaflets are thin with normal excursion. There is no aortic stenosis or regurgitation present. Mitral Valve: The mitral valve appears normal in structure and function. Tricuspid Valve: The tricuspid valve appears normal in structure and function. Unable to estimate the right ventricular systolic pressure. Pulmonic Valve: The pulmonic valve is not well visualized. There is no evidence of pulmonic regurgitation. There is no pulmonic stenosis. Pericardium: The pericardium appears normal. Pulmonary Artery: The main pulmonary artery is not well visualized. Venous: The inferior vena cava appears normal in size. Measurements Chambers 2D Name Value Normal Range IVSd (2D) 0.83 cm (0.6 - 1.1) LVPWd (2D) 0.83 cm (0.6 - 1.1) LVIDd (2D) 3.88 cm (3.7 - 5.6) LVIDs (2D) 2.46 cm (2 - 3.8) LV FS (2D) 36.52 % - EF Teichholz (2D) 66.97 % - Ao root diameter (2D) 3.47 cm (2 - 3.7) Volumes/Mass Name Value Normal Range LA ESV SP 4CH (A/L) 22.4 ml - LA ESV SP 2CH (A/L) 22.89 ml - LA ESV BP (A/L) 23.06 ml - LA ESV SP 4CH (MOD) 21.09 ml - LA ESV SP 2CH (MOD) 22.44 ml - Diastolic/Systolic Function Name Value Normal Range MV E-wave Vmax 0.48 m/sec - MV deceleration time 156.3 msec - MV A-wave Vmax 0.59 m/sec - MV E:A ratio 0.81 ratio - Aortic Valve Name Value Normal Range AV Vmax 0.97 m/sec - AV VTI 14.49 cm - AV peak gradient 3.73 mmHg - AV mean gradient 1.89 mmHg - LVOT diameter 2.09 cm - LVOT Vmax 0.72 m/sec - LVOT VTI 10.21 cm - LVOT peak gradient 2.05 mmHg - LVOT mean gradient 1.03 mmHg - SV LVOT 35.17 ml - INNA (continuity Vmax) 2.55 cm2 - INNA (continuity VTI) 2.43 cm2 - Tricuspid Valve Name Value Normal Range TV E-wave Vmax 0.37 m/sec - Pulmonic Valve/Qp:Qs Name Value Normal Range PV Vmax 0.72 m/sec - PV peak gradient 2.06 mmHg - RVOT Vmax 0.85 m/sec - RVOT VTI 9.89 cm - RVOT peak gradient 2.9 mmHg - PV acceleration time 72.31 msec - Cantor/IV: Voiding Method Bedpan IV Catheter Type [Right Wrist] INT / Saline Lock IV Catheter Type [Right Upper Peripheral IV arm] IV Catheter Type [Right CVL Internal Jugular] IV Catheter Type [Right Peripheral IV Forearm] IV Catheter Type [Left Forearm INT / Saline Lock ] IV Catheter Type [Left Wrist] INT / Saline Lock IV Catheter Type [Right Hand] INT / Saline Lock IV Catheter Type [Left Hand] INT / Saline Lock IV Catheter Type [Left Peripheral IV Antecubital] Active Medications - Current Medications Current Medications: Generic Name Dose Route Start Last Admin Trade Name Freq PRN Reason Stop Dose Admin Alprazolam 0.25 mg 05/20/20 17:53 07/26/20 09:37 Alprazolam 0.25 Mg Tab PO 0.25 mg Q8H PRN Administration Anxiety Lipase/Protease/Amylase 1 each 05/22/20 13:01 Lipase 10,500/Protease 25,000/Amylase 43,750 (Units) Dr Newell FEEDTUBE PRN PRN For Clogged Feeding Tube Bisacodyl 10 mg 07/14/20 11:00 Bisacodyl 10 Mg Rect Supp TX BID PRN Laxative Effect Enoxaparin Sodium 80 mg 07/07/20 23:00 07/29/20 10:01 Enoxaparin 80 Mg/0.8 Ml Inj SUB-Q 80 mg Q12HR DESIRE Administration Enoxaparin Sodium 30 mg 07/07/20 23:00 07/29/20 10:01 Enoxaparin 30 Mg/0.3 Ml Inj SUB-Q 30 mg Q12HR DESIRE Administration Folic Acid 1 mg 05/09/20 15:36 07/29/20 09:56 Folic Acid 1 Mg Tab PO 1 mg QDAY DESIRE Administration Guaifenesin 600 mg 07/19/20 23:00 07/29/20 09:56 Guaifenesin Er 600 Mg Tab PO 600 mg BID DESIRE Administration Hydrophilic Ointment 1 applic 05/21/20 20:33 Lip Therapy Vaseline TP Q2HR PRN Dry Lips Insulin Human Lispro 0 unit 05/29/20 14:00 07/29/20 08:48 Insulin Lispro 100 Unit/Ml Vial 3 Ml SUB-Q Not Given Q6H [facility] Protocol Lansoprazole 30 mg 06/28/20 10:00 07/29/20 09:56 Lansoprazole 30 Mg Solutab FEEDTUBE 30 mg QDAY DESIRE Administration Lorazepam 1 mg 07/04/20 01:10 07/18/20 11:57 Lorazepam 2 Mg/Ml Vial IV 1 mg Q1HR PRN Administration agitation Methylprednisolone Sodium Succinate 20 mg 07/15/20 10:00 07/29/20 10:05 Methylprednisolone Sod Succinate 40 Mg/1 Ml Inj IV 20 mg Q24HR DESIRE Administration Metoprolol Tartrate 5 mg 07/02/20 17:17 07/08/20 14:38 Metoprolol Tartrate 5 Mg/5 Ml Inj IV 5 mg Q6HR PRN Administration Tachyarrhythmias Metoprolol Tartrate 12.5 mg 07/17/20 12:00 07/29/20 10:00 Metoprolol Tartrate 25 Mg Tab PO 12.5 mg BID DESIRE Administration Midodrine 10 mg 06/30/20 16:00 07/29/20 10:00 Midodrine 5 Mg Tab PO 10 mg TID@0800,1200,1600 DESIRE Administration Multi-Ingred Cream/Lotion/Oil/Oint 1 applic 05/21/20 20:33 Mineral Oil/Petrolatum, White Ophth Oint 3.5 Gm OU Q4HR PRN Dry Eye(s) Olanzapine 5 mg 07/17/20 22:00 07/28/20 21:22 Olanzapine 5 Mg Tab PO 5 mg QHS DESIRE Administration Phenobarbital 32.4 mg 07/04/20 22:00 07/29/20 10:00 Phenobarbital 32.4 Mg Tab PO 32.4 mg BID DESIRE Administration Quetiapine Fumarate 200 mg 07/16/20 10:00 07/29/20 10:00 Quetiapine 200 Mg Tab PO 200 mg QAM DESIRE Administration Senna 17.2 mg 07/14/20 11:00 Sennosides 8.6 Mg Tab PO BID PRN Laxative Effect Nutrition/Malnutrition Assess - Dietary Evaluation Nutrition/Malnutrition Findings: Nutrition Notes Start: 05/17/20 14:10 Freq: Status: Active Protocol: Document 07/23/20 14:39 CW (Rec: 07/23/20 14:49 CW [email or web address]) Co-Sign 07/23/20 14:39 LP Nutrition Notes Initial or Follow up Reassessment Current Diagnosis Acute Kidney Injury,Decubitus( Pressure Ulcer),Sepsis, Respiratory Failure Other Pertinent Diagnosis Bilat pneu, COVID-19 (+), EtOH dependence Current Diet Regular diet Labs/Tests K 2.9 BG 199 Pertinent Medications KCl 120 mEq Humalog solumedrol Height 6 ft Weight 107.5 kg [place] Body Weight (kg) 80.90 BMI 32.1 Weight Status Obese Subjective/Other Information FU for TF mauricio. Per chart, pt remains extubated with diet advancement. Per RN pt is consuming 100% PO without chewing or swallowing difficulties. Percent of energy/protein needs met: 100%/100% Burn Absent Trauma Absent GI Symptoms None Current % PO Good (75-100%) Minimum of two criteria No physical signs of malnutrition #2 Nutrition Diagnosis Increased nutrient needs ( specify in comment below) Diagnosis Progress(for reassessment Continues documentation) #1 Nutrition Diagnosis Inadequate oral intake As Evidenced by Signs and Symptoms Pt extubated and diet advanced Diagnosis Progress(for reassessment Improved documentation) Is patient on ventilator? No Is Patient Ambulatory and/or Out of Bed No REE-([facility]-confined to bed) 2365.212 Kcal/Kg value to use for calculation 16 Approximate Energy Requirements Using 1720 kcal/Kg Calculation Used for Recommendations Kcal/kg Additional Notes Protein: 134-161 g (1.25-1.5 g /kg) Fluid: 1 ml/kcal Nutrition Intervention Change Diet Order: Continue diet Nutrition Support: DC Goal #1 Meet at least 75% protein and energy needs via PO Anticipated Discharge Needs: Regular diet Follow-Up By: 07/30/20 Additional Comments FU for intakes
--- NOTE | 2020-07-29 10:58 | Progress Note ---
Subjective - Reason for Consult Consult date: 07/29/20 Reason for consult: delirium - Chief Complaint Chief complaint: The patient was seen today. He is awake. The patient is a/o x 3. He is calm and cooperative. He's pleasant. He laughs when he sees me, "you again," He denies SI/HI or hallucinations of any kind. He describes his mood as "alright." MENTAL STATUS EXAMINATION General Appearance and Behavior: Age appropriate, good hygiene, wearing appropriate clothes, cooperative polite with questioning. Cooperation: engaged Psychomotor Behavior: Psychomotor normal Mood: alright Affect and affective range: congruent with mood Thought Process: logical Thought Content: within reality Speech: Low volume, Regular rate and rhythm, Intellectual Functioning: improved Suicidal Ideation: none Homicidal Ideation: none Impulse Control: Unimpaired Insight and Judgment: unimpaired Memory: memory improved Attention: alert and oriented Assessment and Plan (1) Delirium due to another medical condition (F05) Current Visit: Yes Status: Acute Treatment Continue current medications Risks, benefits and alternatives of medications discussed with the patient, questions answered and consent obtained from patient. PSYCHOTHERAPY: Supportive psychotherapy provided MEDICAL: Per primary team DELIRIUM PRECAUTIONS: Please re-orient patient frequently, keep lights on during the day, and minimize benzodiazepines and opiates as these medications could worsen patient's confusion. CUSTOMER SUPPORT ASSOCIATE: Defer to primary DISPOSITION: Do Not Recommend acute inpatient psychiatric hospitalization at this time but patient will be followed. Case discussed with Dr. Foster who agrees with current disposition Will continue to follow to monitor psych progress and med management. Thank you for the consult. Please contact with any questions and/or concerns. Mental Status Exam - Vital signs Last Vital Signs Temp 98.3 F 07/29/20 07:49 Pulse 97 H 07/29/20 10:10 Resp 20 07/29/20 07:49 BP 117/76 07/29/20 07:49 Pulse Ox 93 07/29/20 08:32
--- NOTE | 2020-07-29 12:53 | Cat Scan Report ---
CTA CHEST WITH CONTRAST INDICATION : MAIN. TECHNIQUE: Axial imaging performed through the chest, with contrast bolus timing set to maximize opa cification of the pulmonary arteries. Sagittal and coronal reformatted images. 3-plane MIP reformatte d images were obtained. All CT scans at this location are performed using CT dose reduction for ALAR A by means of automated exposure control. 100 mL of intravenous contrast administered. COMPARISON: FINDINGS: Bolus: Contrast bolus timing is adequate. PTE: This exam is slightly limited by breathing motion artifact but no pulmonary arterial filling de fect is identified to suggest PTE. Mediastinum: Heart and great vessels appear normal. No pathologic mediastinal adenopathy. Lungs: Extensive bilateral groundglass lung infiltrates are present. This is a nonspecific finding b ut could be related to atypical pneumonia, viral infection or interstitial lung disease. Mild cylindr ical bronchiectasis is suspected throughout both lungs. No evidence for mass, consolidation, pleural effusion or pneumothorax. Bones: Degenerative changes in the spine with nothing acute. Upper abdomen: Limited imaging of the upper abdomen shows nothing acute. IMPRESSION: No evidence for pulmonary embolus. Extensive bilateral lung infiltrates as described. Signer Name: Bautista Jennings Jr, MD Signed: 07/29/2020 12:49 PM Workstation Name: [id number]
--- NOTE | 2020-07-29 14:45 | Progress Note ---
Assessment and Plan Acute hypoxemic respiratory failure due to COVID-19 Severe Sepsis Bilateral pneumonia Acute kidney injury (SEN) with acute tubular necrosis (ATN) Alcohol dependence Elevated liver function tests - continue to wean supplemental oxygen for target O2 sat's > 92% acutely (30% now) - continue aspiration precautions - continue psychoactive medications per mental health team - continue care as below otherwise; - Psychiatry input appreciated - continue BIPAP scheduled qhs with prn daytime use - continue bid protonix - continue bowel regimen - aspiration precautions - continue bronchodilators with pulmonary hygiene per RT - accuchecks with glycemic control per SSI for target blood glucose of < 180 mg/dL; avoid hypoglycemia - enteral nutritional support at goal rate as tolerated - repeat COVID-19 testing is negative X 2 - continue Zinc & Vit C supplementaion - wean systemic steroids for Asthma / severe COVID infection - continue empiric full dose anticoagulation re: elevated d-dimers / hypercoagulable state - completed remdesivir dosing (total 5 days) - empiric AB's coverage per ID rec's - avoid nephrotoxins, renally dose all medications - continue to avoid benzodiazepine's, reduce the possibility of delirium - continue wound care per RN / WCN - prn analgesia per CPOT score - Maintenance of sleep-wake cycle, avoid delirium - continue to avoid benzodiazepine's, reduce the possibility of delirium - G.I. & VTE prophylaxis - PT/OT/ROM exercises - continue mobility protocols for pressure ulcer prophylaxis - Monitor hemodynamics closely - continue other care per attending / other consultants - discharge planning ongoing concurrently - transfer to telemetry floor ok .... Re-evaluate in am & prn CONDITION: FAIR PROGNOSIS: GUARDED CODE STATUS: FULL CODE I have spent ( >35 ) minutes with the patient w/ >50% of the time spent counseling and/or coordinating care for this patient. Counseling topics and/or how time was spent coordinating patient's care is outlined in the impression and plan above. Subjective Date of service: 07/29/20 Principal diagnosis: Ac hypoxemic resp failure; COVID-19; Severe Sepsis; Shaggy PNA; Alcohol Abuse Interval history: Patient is seen today for: Acute hypoxemic respiratory failure due to COVID-19; Severe Sepsis; Bilateral pneumonia; Alcohol dependence; Elevated liver function tests Seen and examined at bedside; 24hour events reviewed; nursing and respiratory care staff consulted; no adverse overnight events reported to me; resting in bed; remains on supplemental oxygen; oxygenation labile and was back up to 60% FiO2 overnight; doing better now; no chest pain; No N/V/F/C Objective Vital Signs - 12hr 07/29/20 07/29/20 07/29/20 04:47 07:49 08:32 Temperature 98.0 F 98.3 F Pulse Rate 96 H 100 H Respiratory 18 20 Rate Blood Pressure 121/77 117/76 O2 Sat by Pulse 100 100 93 Oximetry 07/29/20 07/29/20 10:00 10:10 Temperature Pulse Rate 69 97 H Respiratory Rate Blood Pressure O2 Sat by Pulse Oximetry Constitutional: appears uncomfortable, other (middle aged obese male with mildly increased respiratory effort at rest ) Eyes: non-icteric ENT: oropharynx moist, other (extubated) Neck: supple, no JVD Effort: mildly labored Ascultation: Bilateral: diminished breath sounds, rhonchi (scant bases) Percussion: Bilateral: not dull Cardiovascular: regular rate and rhythm, other (No R/M) Gastrointestinal: normoactive bowel sounds, soft, non-tender, non-distended (protuberant) Integumentary: normal Extremities: no cyanosis, no edema, pulses normal, no ischemia or petechiae Neurologic: non-focal exam (non focal grossly; weak), pupils equal and round, CN II-XII normal, motor strength normal and (weak ) Psychiatric: mood appropriate, affect normal CBC and BMP: 07/27/20 08:26 07/27/20 08:26 ABG, PT/INR, D-dimer: ABG ABG pH 7.477 (7.320-7.450) H 07/13/20 13:52 POC ABG pCO2 54.4 mmHg (32.0-48.0) H 07/13/20 13:52 ABG pCO2 53.1 mm Hg 07/08/20 Unknown POC ABG pO2 126.8 mmHg (83-108) H 07/13/20 13:52 ABG pO2 75.3 mm Hg (80.0-90.0) L 07/08/20 Unknown POC ABG HCO3 39.3 07/13/20 13:52 ABG O2 Saturation 96.5 % (95.0-99.0) 07/08/20 Unknown PT/INR, D-dimer PT 11.8 Sec. (12.2-14.9) L 06/22/20 14:29 INR 0.88 (0.87-1.13) 06/22/20 14:29 D-Dimer 1887.82 ng/mlDDU (0-234) H 05/20/20 08:16 Abnormal lab findings: Abnormal Labs 05/09/20 05/09/20 05/09/20 12:59 12:59 12:59 WBC 11.8 H RBC Hgb Hct MCV 96 H MCH 34 H MCHC 35 H RDW Lymph % (Auto) 6.9 L [place] % (Auto) Lymph # (Auto) 0.8 L [place] # (Auto) Baso # (Auto) Seg Neutrophils % 87.5 H Seg Neuts % (Manual) Lymphocytes % (Manual) Nucleated RBC % Seg Neutrophils # 10.3 H Seg Neutrophils # Man Lymphocytes # (Manual) Monocytes # (Manual) Eosinophils # (Manual) PT INR APTT D-Dimer Heparin Anti-Xa Level ABG pH POC ABG pCO2 POC ABG pO2 ABG pO2 ABG HCO3 ABG O2 Saturation ABG Base Excess ABG Hemoglobin ABG Oxyhemoglobin ABG Sodium ABG Potassium ABG Chloride ABG Glucose Oxyhemoglobin Carboxyhemoglobin Sodium 130 L Potassium 3.5 L Chloride 86.4 L Carbon Dioxide BUN 33 H Creatinine 2.3 H Glucose 156 H POC Glucose Lactic Acid Calcium Magnesium Ferritin Total Bilirubin 3.40 H Direct Bilirubin 1.7 H AST 385 H ALT 134 H Alkaline Phosphatase Lactate Dehydrogenase C-Reactive Protein Total Protein Albumin 3.0 L Triglycerides Lipase Arterial Blood Glucose Arterial Blood Ionized Calcium Urine WBC (Auto) Coronavirus (PCR) SARS-CoV-2 IgG Ab Crossmatch 05/09/20 05/09/20 05/09/20 12:59 12:59 12:59 WBC RBC Hgb Hct MCV MCH MCHC RDW Lymph % (Auto) [place] % (Auto) Lymph # (Auto) [place] # (Auto) Baso # (Auto) Seg Neutrophils % Seg Neuts % (Manual) Lymphocytes % (Manual) Nucleated RBC % Seg Neutrophils # Seg Neutrophils # Man Lymphocytes # (Manual) Monocytes # (Manual) Eosinophils # (Manual) PT INR APTT D-Dimer 3242.51 H Heparin Anti-Xa Level ABG pH POC ABG pCO2 POC ABG pO2 ABG pO2 ABG HCO3 ABG O2 Saturation ABG Base Excess ABG Hemoglobin ABG Oxyhemoglobin ABG Sodium ABG Potassium ABG Chloride ABG Glucose Oxyhemoglobin Carboxyhemoglobin Sodium Potassium Chloride Carbon Dioxide BUN Creatinine Glucose 158 H POC Glucose Lactic Acid 3.50 H* Calcium Magnesium Ferritin Total Bilirubin Direct Bilirubin AST ALT Alkaline Phosphatase Lactate Dehydrogenase 2166 H C-Reactive Protein 39.00 H Total Protein Albumin Triglycerides Lipase Arterial Blood Glucose Arterial Blood Ionized Calcium Urine WBC (Auto) Coronavirus (PCR) SARS-CoV-2 IgG Ab Crossmatch 05/09/20 05/09/20 05/09/20 12:59 14:20 14:20 WBC RBC Hgb Hct MCV MCH MCHC RDW Lymph % (Auto) [place] % (Auto) Lymph # (Auto) [place] # (Auto) Baso # (Auto) Seg Neutrophils % Seg Neuts % (Manual) Lymphocytes % (Manual) Nucleated RBC % Seg Neutrophils # Seg Neutrophils # Man Lymphocytes # (Manual) Monocytes # (Manual) Eosinophils # (Manual) PT INR APTT D-Dimer 2861.78 H Heparin Anti-Xa Level ABG pH POC ABG pCO2 POC ABG pO2 ABG pO2 ABG HCO3 ABG O2 Saturation ABG Base Excess ABG Hemoglobin ABG Oxyhemoglobin ABG Sodium ABG Potassium ABG Chloride ABG Glucose Oxyhemoglobin Carboxyhemoglobin Sodium Potassium Chloride Carbon Dioxide BUN Creatinine Glucose POC Glucose Lactic Acid 2.20 H* Calcium Magnesium Ferritin 74728.0 H Total Bilirubin Direct Bilirubin AST ALT Alkaline Phosphatase Lactate Dehydrogenase C-Reactive Protein Total Protein Albumin Triglycerides Lipase Arterial Blood Glucose Arterial Blood Ionized Calcium Urine WBC (Auto) Coronavirus (PCR) SARS-CoV-2 IgG Ab Crossmatch 05/09/20 05/09/20 05/09/20 14:20 14:20 15:56 WBC RBC Hgb Hct MCV MCH MCHC RDW Lymph % (Auto) [place] % (Auto) Lymph # (Auto) [place] # (Auto) Baso # (Auto) Seg Neutrophils % Seg Neuts % (Manual) Lymphocytes % (Manual) Nucleated RBC % Seg Neutrophils # Seg Neutrophils # Man Lymphocytes # (Manual) Monocytes # (Manual) Eosinophils # (Manual) PT INR APTT D-Dimer Heparin Anti-Xa Level ABG pH POC ABG pCO2 POC ABG pO2 57.3 L ABG pO2 ABG HCO3 ABG O2 Saturation ABG Base Excess ABG Hemoglobin ABG Oxyhemoglobin 86.3 L ABG Sodium 129.9 L ABG Potassium ABG Chloride ABG Glucose 146 H Oxyhemoglobin Carboxyhemoglobin Sodium Potassium Chloride Carbon Dioxide BUN Creatinine Glucose 143 H POC Glucose Lactic Acid Calcium Magnesium Ferritin 02574.0 H Total Bilirubin Direct Bilirubin AST ALT Alkaline Phosphatase Lactate Dehydrogenase 1953 H C-Reactive Protein 33.50 H Total Protein Albumin Triglycerides Lipase Arterial Blood Glucose 146 H Arterial Blood Ionized Calcium 3.9 L Urine WBC (Auto) Coronavirus (PCR) SARS-CoV-2 IgG Ab Crossmatch 05/10/20 05/10/20 05/10/20 10:32 10:32 18:50 WBC 15.4 H RBC Hgb Hct MCV 97 H MCH 33 H MCHC RDW 13.1 L Lymph % (Auto) [place] % (Auto) Lymph # (Auto) [place] # (Auto) Baso # (Auto) Seg Neutrophils % Seg Neuts % (Manual) 89.0 H Lymphocytes % (Manual) 8.0 L Nucleated RBC % Seg Neutrophils # Seg Neutrophils # Man 13.7 H Lymphocytes # (Manual) Monocytes # (Manual) Eosinophils # (Manual) PT INR APTT D-Dimer Heparin Anti-Xa Level ABG pH POC ABG pCO2 POC ABG pO2 ABG pO2 ABG HCO3 ABG O2 Saturation ABG Base Excess ABG Hemoglobin ABG Oxyhemoglobin ABG Sodium ABG Potassium ABG Chloride ABG Glucose Oxyhemoglobin Carboxyhemoglobin Sodium 136 L Potassium Chloride 97.4 L Carbon Dioxide BUN 37 H Creatinine 1.7 H Glucose 209 H POC Glucose Lactic Acid Calcium Magnesium Ferritin > 2000.0 H Total Bilirubin Direct Bilirubin AST ALT Alkaline Phosphatase Lactate Dehydrogenase C-Reactive Protein Total Protein Albumin Triglycerides Lipase Arterial Blood Glucose Arterial Blood Ionized Calcium Urine WBC (Auto) Coronavirus (PCR) SARS-CoV-2 IgG Ab Crossmatch 05/10/20 05/10/20 05/10/20 18:50 19:00 Unknown WBC RBC Hgb Hct MCV MCH MCHC RDW Lymph % (Auto) [place] % (Auto) Lymph # (Auto) [place] # (Auto) Baso # (Auto) Seg Neutrophils % Seg Neuts % (Manual) Lymphocytes % (Manual) Nucleated RBC % Seg Neutrophils # Seg Neutrophils # Man Lymphocytes # (Manual) Monocytes # (Manual) Eosinophils # (Manual) PT INR APTT D-Dimer > 21745 H Heparin Anti-Xa Level ABG pH POC ABG pCO2 POC ABG pO2 ABG pO2 ABG HCO3 ABG O2 Saturation ABG Base Excess ABG Hemoglobin ABG Oxyhemoglobin ABG Sodium ABG Potassium ABG Chloride ABG Glucose Oxyhemoglobin Carboxyhemoglobin Sodium Potassium Chloride Carbon Dioxide BUN Creatinine Glucose POC Glucose Lactic Acid Calcium Magnesium Ferritin Total Bilirubin Direct Bilirubin AST ALT Alkaline Phosphatase Lactate Dehydrogenase 1879 H C-Reactive Protein 24.80 H Total Protein Albumin Triglycerides Lipase Arterial Blood Glucose Arterial Blood Ionized Calcium Urine WBC (Auto) 11.0 H Coronavirus (PCR) SARS-CoV-2 IgG Ab Crossmatch 05/10/20 05/11/20 05/11/20 Unknown 07:30 07:30 WBC RBC Hgb Hct MCV MCH MCHC RDW Lymph % (Auto) [place] % (Auto) Lymph # (Auto) [place] # (Auto) Baso # (Auto) Seg Neutrophils % Seg Neuts % (Manual) Lymphocytes % (Manual) Nucleated RBC % Seg Neutrophils # Seg Neutrophils # Man Lymphocytes # (Manual) Monocytes # (Manual) Eosinophils # (Manual) PT INR APTT D-Dimer > 2000 H Heparin Anti-Xa Level ABG pH POC ABG pCO2 POC ABG pO2 ABG pO2 ABG HCO3 ABG O2 Saturation ABG Base Excess ABG Hemoglobin ABG Oxyhemoglobin ABG Sodium ABG Potassium ABG Chloride ABG Glucose Oxyhemoglobin Carboxyhemoglobin Sodium Potassium Chloride 96.3 L Carbon Dioxide BUN 36 H Creatinine Glucose 161 H POC Glucose Lactic Acid Calcium 8.3 L Magnesium Ferritin Total Bilirubin 1.50 H Direct Bilirubin 0.6 H AST 178 H ALT 111 H Alkaline Phosphatase Lactate Dehydrogenase C-Reactive Protein Total Protein Albumin 3.0 L Triglycerides Lipase Arterial Blood Glucose Arterial Blood Ionized Calcium Urine WBC (Auto) Coronavirus (PCR) Positive A SARS-CoV-2 IgG Ab Crossmatch 05/11/20 05/11/20 05/11/20 07:30 07:30 07:30 WBC RBC Hgb Hct MCV MCH MCHC RDW Lymph % (Auto) [place] % (Auto) Lymph # (Auto) [place] # (Auto) Baso # (Auto) Seg Neutrophils % Seg Neuts % (Manual) Lymphocytes % (Manual) Nucleated RBC % Seg Neutrophils # Seg Neutrophils # Man Lymphocytes # (Manual) Monocytes # (Manual) Eosinophils # (Manual) PT INR APTT D-Dimer Heparin Anti-Xa Level ABG pH POC ABG pCO2 POC ABG pO2 ABG pO2 ABG HCO3 ABG O2 Saturation ABG Base Excess ABG Hemoglobin ABG Oxyhemoglobin ABG Sodium ABG Potassium ABG Chloride ABG Glucose Oxyhemoglobin Carboxyhemoglobin Sodium Potassium Chloride Carbon Dioxide BUN Creatinine Glucose POC Glucose Lactic Acid Calcium Magnesium Ferritin 31118.0 H Total Bilirubin Direct Bilirubin AST ALT Alkaline Phosphatase Lactate Dehydrogenase 1523 H C-Reactive Protein 12.90 H Total Protein Albumin Triglycerides Lipase Arterial Blood Glucose Arterial Blood Ionized Calcium Urine WBC (Auto) Coronavirus (PCR) SARS-CoV-2 IgG Ab Reactive A Crossmatch 05/13/20 05/13/20 05/15/20 05:20 05:20 08:15 WBC RBC Hgb Hct MCV MCH MCHC RDW Lymph % (Auto) [place] % (Auto) Lymph # (Auto) [place] # (Auto) Baso # (Auto) Seg Neutrophils % Seg Neuts % (Manual) Lymphocytes % (Manual) Nucleated RBC % Seg Neutrophils # Seg Neutrophils # Man Lymphocytes # (Manual) Monocytes # (Manual) Eosinophils # (Manual) PT INR APTT D-Dimer > 11548 H 5318.28 H Heparin Anti-Xa Level ABG pH POC ABG pCO2 POC ABG pO2 ABG pO2 ABG HCO3 ABG O2 Saturation ABG Base Excess ABG Hemoglobin ABG Oxyhemoglobin ABG Sodium ABG Potassium ABG Chloride ABG Glucose Oxyhemoglobin Carboxyhemoglobin Sodium Potassium Chloride Carbon Dioxide 32 H BUN 30 H Creatinine Glucose 156 H POC Glucose Lactic Acid Calcium Magnesium 2.60 H Ferritin Total Bilirubin 1.40 H Direct Bilirubin AST 121 H ALT 119 H Alkaline Phosphatase Lactate Dehydrogenase 957 H C-Reactive Protein 4.00 H Total Protein Albumin 3.0 L Triglycerides Lipase Arterial Blood Glucose Arterial Blood Ionized Calcium Urine WBC (Auto) Coronavirus (PCR) SARS-CoV-2 IgG Ab Crossmatch 05/15/20 05/15/20 05/15/20 08:15 08:15 08:15 WBC 12.4 H RBC Hgb Hct MCV 98 H MCH 33 H MCHC RDW Lymph % (Auto) 9.7 L [place] % (Auto) Lymph # (Auto) [place] # (Auto) Baso # (Auto) Seg Neutrophils % 86.8 H Seg Neuts % (Manual) Lymphocytes % (Manual) Nucleated RBC % Seg Neutrophils # 10.8 H Seg Neutrophils # Man Lymphocytes # (Manual) Monocytes # (Manual) Eosinophils # (Manual) PT INR APTT D-Dimer Heparin Anti-Xa Level ABG pH POC ABG pCO2 POC ABG pO2 ABG pO2 ABG HCO3 ABG O2 Saturation ABG Base Excess ABG Hemoglobin ABG Oxyhemoglobin ABG Sodium ABG Potassium ABG Chloride ABG Glucose Oxyhemoglobin Carboxyhemoglobin Sodium Potassium Chloride 94.8 L Carbon Dioxide 32 H BUN 22 H Creatinine Glucose 115 H POC Glucose Lactic Acid Calcium 8.3 L Magnesium Ferritin 2494.0 H Total Bilirubin Direct Bilirubin AST 73 H ALT 121 H Alkaline Phosphatase Lactate Dehydrogenase 835 H C-Reactive Protein 3.40 H Total Protein 6.1 L Albumin 3.0 L Triglycerides Lipase Arterial Blood Glucose Arterial Blood Ionized Calcium Urine WBC (Auto) Coronavirus (PCR) SARS-CoV-2 IgG Ab Crossmatch 05/17/20 05/17/20 05/17/20 05:50 05:50 05:50 WBC RBC Hgb Hct MCV MCH MCHC RDW Lymph % (Auto) [place] % (Auto) Lymph # (Auto) [place] # (Auto) Baso # (Auto) Seg Neutrophils % Seg Neuts % (Manual) Lymphocytes % (Manual) Nucleated RBC % Seg Neutrophils # Seg Neutrophils # Man Lymphocytes # (Manual) Monocytes # (Manual) Eosinophils # (Manual) PT INR APTT D-Dimer 2911.42 H Heparin Anti-Xa Level ABG pH POC ABG pCO2 POC ABG pO2 ABG pO2 ABG HCO3 ABG O2 Saturation ABG Base Excess ABG Hemoglobin ABG Oxyhemoglobin ABG Sodium ABG Potassium ABG Chloride ABG Glucose Oxyhemoglobin Carboxyhemoglobin Sodium 136 L Potassium Chloride 96.0 L Carbon Dioxide 34 H BUN 22 H Creatinine Glucose 140 H POC Glucose Lactic Acid Calcium Magnesium Ferritin 2082.0 H Total Bilirubin Direct Bilirubin AST ALT 75 H Alkaline Phosphatase Lactate Dehydrogenase 601 H C-Reactive Protein 2.70 H Total Protein Albumin 2.9 L Triglycerides Lipase Arterial Blood Glucose Arterial Blood Ionized Calcium Urine WBC (Auto) Coronavirus (PCR) SARS-CoV-2 IgG Ab Crossmatch 05/17/20 05/18/20 05/20/20 05:50 12:22 08:16 WBC RBC Hgb Hct MCV 98 H MCH 33 H MCHC RDW Lymph % (Auto) 8.0 L [place] % (Auto) Lymph # (Auto) 0.8 L [place] # (Auto) Baso # (Auto) Seg Neutrophils % 89.3 H Seg Neuts % (Manual) Lymphocytes % (Manual) Nucleated RBC % Seg Neutrophils # 8.8 H Seg Neutrophils # Man Lymphocytes # (Manual) Monocytes # (Manual) Eosinophils # (Manual) PT INR APTT D-Dimer 1887.82 H Heparin Anti-Xa Level ABG pH POC ABG pCO2 POC ABG pO2 ABG pO2 ABG HCO3 ABG O2 Saturation ABG Base Excess ABG Hemoglobin ABG Oxyhemoglobin ABG Sodium ABG Potassium ABG Chloride ABG Glucose Oxyhemoglobin Carboxyhemoglobin Sodium Potassium Chloride Carbon Dioxide BUN Creatinine Glucose POC Glucose 178 H Lactic Acid Calcium Magnesium Ferritin Total Bilirubin Direct Bilirubin AST ALT Alkaline Phosphatase Lactate Dehydrogenase C-Reactive Protein Total Protein Albumin Triglycerides Lipase Arterial Blood Glucose Arterial Blood Ionized Calcium Urine WBC (Auto) Coronavirus (PCR) SARS-CoV-2 IgG Ab Crossmatch 05/20/20 05/20/20 05/21/20 08:16 08:16 21:10 WBC RBC Hgb Hct MCV MCH MCHC RDW Lymph % (Auto) [place] % (Auto) Lymph # (Auto) [place] # (Auto) Baso # (Auto) Seg Neutrophils % Seg Neuts % (Manual) Lymphocytes % (Manual) Nucleated RBC % Seg Neutrophils # Seg Neutrophils # Man Lymphocytes # (Manual) Monocytes # (Manual) Eosinophils # (Manual) PT INR APTT D-Dimer Heparin Anti-Xa Level ABG pH 7.483 H POC ABG pCO2 POC ABG pO2 ABG pO2 50.0 L ABG HCO3 27.0 H ABG O2 Saturation 86.2 L ABG Base Excess 3.7 H ABG Hemoglobin ABG Oxyhemoglobin ABG Sodium ABG Potassium ABG Chloride ABG Glucose Oxyhemoglobin 84.2 L Carboxyhemoglobin Sodium Potassium Chloride Carbon Dioxide BUN Creatinine Glucose POC Glucose Lactic Acid Calcium Magnesium Ferritin 1960.0 H Total Bilirubin Direct Bilirubin AST ALT Alkaline Phosphatase Lactate Dehydrogenase 705 H C-Reactive Protein 3.10 H Total Protein Albumin Triglycerides Lipase Arterial Blood Glucose Arterial Blood Ionized Calcium Urine WBC (Auto) Coronavirus (PCR) SARS-CoV-2 IgG Ab Crossmatch 05/22/20 05/22/20 05/22/20 04:01 07:53 07:53 WBC 19.2 H RBC Hgb Hct MCV 98 H MCH 34 H MCHC RDW Lymph % (Auto) [place] % (Auto) Lymph # (Auto) [place] # (Auto) Baso # (Auto) Seg Neutrophils % Seg Neuts % (Manual) 96.0 H Lymphocytes % (Manual) 1.0 L Nucleated RBC % Seg Neutrophils # Seg Neutrophils # Man 18.4 H Lymphocytes # (Manual) 0.2 L Monocytes # (Manual) Eosinophils # (Manual) PT INR APTT D-Dimer Heparin Anti-Xa Level ABG pH POC ABG pCO2 53.8 H POC ABG pO2 125.5 H ABG pO2 ABG HCO3 ABG O2 Saturation ABG Base Excess ABG Hemoglobin ABG Oxyhemoglobin ABG Sodium 131.8 L ABG Potassium 4.8 H ABG Chloride 94.0 L ABG Glucose 163 H Oxyhemoglobin Carboxyhemoglobin Sodium 131 L Potassium Chloride 93.4 L Carbon Dioxide BUN 40 H Creatinine Glucose 176 H POC Glucose Lactic Acid Calcium Magnesium 2.70 H Ferritin Total Bilirubin 1.80 H Direct Bilirubin AST 45 H ALT 116 H Alkaline Phosphatase 181 H Lactate Dehydrogenase C-Reactive Protein Total Protein Albumin 2.6 L Triglycerides Lipase Arterial Blood Glucose 163 H Arterial Blood Ionized Calcium 4.5 L Urine WBC (Auto) Coronavirus (PCR) SARS-CoV-2 IgG Ab Crossmatch 05/23/20 05/24/20 05/24/20 04:17 03:07 04:08 WBC RBC Hgb Hct MCV MCH MCHC RDW Lymph % (Auto) [place] % (Auto) Lymph # (Auto) [place] # (Auto) Baso # (Auto) Seg Neutrophils % Seg Neuts % (Manual) Lymphocytes % (Manual) Nucleated RBC % Seg Neutrophils # Seg Neutrophils # Man Lymphocytes # (Manual) Monocytes # (Manual) Eosinophils # (Manual) PT INR APTT D-Dimer Heparin Anti-Xa Level ABG pH 7.328 L POC ABG pCO2 POC ABG pO2 ABG pO2 72.8 L 73.4 L ABG HCO3 31.0 H 34.0 H ABG O2 Saturation 93.5 L ABG Base Excess 3.5 H 7.7 H ABG Hemoglobin 13.3 L 12.1 L ABG Oxyhemoglobin ABG Sodium ABG Potassium ABG Chloride ABG Glucose Oxyhemoglobin 91.5 L 94.3 L Carboxyhemoglobin Sodium Potassium Chloride Carbon Dioxide BUN Creatinine Glucose POC Glucose 155 H Lactic Acid Calcium Magnesium Ferritin Total Bilirubin Direct Bilirubin AST ALT Alkaline Phosphatase Lactate Dehydrogenase C-Reactive Protein Total Protein Albumin Triglycerides Lipase Arterial Blood Glucose Arterial Blood Ionized Calcium Urine WBC (Auto) Coronavirus (PCR) SARS-CoV-2 IgG Ab Crossmatch 05/24/20 05/24/20 05/24/20 09:33 12:21 17:52 WBC RBC Hgb Hct MCV MCH MCHC RDW Lymph % (Auto) [place] % (Auto) Lymph # (Auto) [place] # (Auto) Baso # (Auto) Seg Neutrophils % Seg Neuts % (Manual) Lymphocytes % (Manual) Nucleated RBC % Seg Neutrophils # Seg Neutrophils # Man Lymphocytes # (Manual) Monocytes # (Manual) Eosinophils # (Manual) PT INR APTT D-Dimer Heparin Anti-Xa Level ABG pH POC ABG pCO2 POC ABG pO2 ABG pO2 ABG HCO3 ABG O2 Saturation ABG Base Excess ABG Hemoglobin ABG Oxyhemoglobin ABG Sodium ABG Potassium ABG Chloride ABG Glucose Oxyhemoglobin Carboxyhemoglobin Sodium Potassium Chloride Carbon Dioxide 34 H D BUN 28 H Creatinine 0.7 L Glucose 168 H POC Glucose 173 H 164 H Lactic Acid Calcium Magnesium Ferritin Total Bilirubin Direct Bilirubin AST ALT Alkaline Phosphatase Lactate Dehydrogenase C-Reactive Protein Total Protein Albumin Triglycerides Lipase Arterial Blood Glucose Arterial Blood Ionized Calcium Urine WBC (Auto) Coronavirus (PCR) SARS-CoV-2 IgG Ab Crossmatch 05/24/20 05/25/20 05/25/20 23:47 04:29 05:46 WBC RBC Hgb Hct MCV MCH MCHC RDW Lymph % (Auto) [place] % (Auto) Lymph # (Auto) [place] # (Auto) Baso # (Auto) Seg Neutrophils % Seg Neuts % (Manual) Lymphocytes % (Manual) Nucleated RBC % Seg Neutrophils # Seg Neutrophils # Man Lymphocytes # (Manual) Monocytes # (Manual) Eosinophils # (Manual) PT INR APTT D-Dimer Heparin Anti-Xa Level ABG pH POC ABG pCO2 68.6 H POC ABG pO2 ABG pO2 ABG HCO3 ABG O2 Saturation ABG Base Excess ABG Hemoglobin ABG Oxyhemoglobin ABG Sodium ABG Potassium 4.7 H ABG Chloride ABG Glucose 226 H Oxyhemoglobin Carboxyhemoglobin Sodium Potassium Chloride Carbon Dioxide BUN Creatinine Glucose POC Glucose 171 H 201 H Lactic Acid Calcium Magnesium Ferritin Total Bilirubin Direct Bilirubin AST ALT Alkaline Phosphatase Lactate Dehydrogenase C-Reactive Protein Total Protein Albumin Triglycerides Lipase Arterial Blood Glucose 226 H Arterial Blood Ionized Calcium Urine WBC (Auto) Coronavirus (PCR) SARS-CoV-2 IgG Ab Crossmatch 05/25/20 05/25/20 05/25/20 08:37 08:37 12:38 WBC 12.0 H RBC 3.64 L Hgb Hct MCV 99 H MCH 33 H MCHC RDW Lymph % (Auto) [place] % (Auto) Lymph # (Auto) [place] # (Auto) Baso # (Auto) Seg Neutrophils % Seg Neuts % (Manual) Lymphocytes % (Manual) Nucleated RBC % Seg Neutrophils # Seg Neutrophils # Man Lymphocytes # (Manual) Monocytes # (Manual) Eosinophils # (Manual) PT INR APTT D-Dimer Heparin Anti-Xa Level ABG pH POC ABG pCO2 POC ABG pO2 ABG pO2 ABG HCO3 ABG O2 Saturation ABG Base Excess ABG Hemoglobin ABG Oxyhemoglobin ABG Sodium ABG Potassium ABG Chloride ABG Glucose Oxyhemoglobin Carboxyhemoglobin Sodium Potassium Chloride 97.3 L Carbon Dioxide 35 H BUN 25 H Creatinine 0.7 L Glucose 191 H POC Glucose 182 H Lactic Acid Calcium Magnesium Ferritin Total Bilirubin Direct Bilirubin AST ALT Alkaline Phosphatase Lactate Dehydrogenase C-Reactive Protein Total Protein Albumin Triglycerides Lipase Arterial Blood Glucose Arterial Blood Ionized Calcium Urine WBC (Auto) Coronavirus (PCR) SARS-CoV-2 IgG Ab Crossmatch 05/25/20 05/26/20 05/26/20 18:16 00:06 04:50 WBC RBC Hgb Hct MCV MCH MCHC RDW Lymph % (Auto) [place] % (Auto) Lymph # (Auto) [place] # (Auto) Baso # (Auto) Seg Neutrophils % Seg Neuts % (Manual) Lymphocytes % (Manual) Nucleated RBC % Seg Neutrophils # Seg Neutrophils # Man Lymphocytes # (Manual) Monocytes # (Manual) Eosinophils # (Manual) PT INR APTT D-Dimer Heparin Anti-Xa Level ABG pH POC ABG pCO2 POC ABG pO2 ABG pO2 221.5 H ABG HCO3 40.4 H ABG O2 Saturation 99.3 H ABG Base Excess 12.8 H ABG Hemoglobin 10.4 L ABG Oxyhemoglobin ABG Sodium ABG Potassium ABG Chloride ABG Glucose Oxyhemoglobin Carboxyhemoglobin Sodium Potassium Chloride Carbon Dioxide BUN Creatinine Glucose POC Glucose 176 H 152 H Lactic Acid Calcium Magnesium Ferritin Total Bilirubin Direct Bilirubin AST ALT Alkaline Phosphatase Lactate Dehydrogenase C-Reactive Protein Total Protein Albumin Triglycerides Lipase Arterial Blood Glucose Arterial Blood Ionized Calcium Urine WBC (Auto) Coronavirus (PCR) SARS-CoV-2 IgG Ab Crossmatch 05/26/20 05/26/20 05/26/20 06:11 07:51 07:51 WBC 13.4 H RBC 3.64 L Hgb Hct MCV 98 H MCH 33 H MCHC RDW Lymph % (Auto) [place] % (Auto) Lymph # (Auto) [place] # (Auto) Baso # (Auto) Seg Neutrophils % Seg Neuts % (Manual) Lymphocytes % (Manual) Nucleated RBC % Seg Neutrophils # Seg Neutrophils # Man Lymphocytes # (Manual) Monocytes # (Manual) Eosinophils # (Manual) PT INR APTT D-Dimer Heparin Anti-Xa Level ABG pH POC ABG pCO2 POC ABG pO2 ABG pO2 ABG HCO3 ABG O2 Saturation ABG Base Excess ABG Hemoglobin ABG Oxyhemoglobin ABG Sodium ABG Potassium ABG Chloride ABG Glucose Oxyhemoglobin Carboxyhemoglobin Sodium Potassium Chloride 96.6 L Carbon Dioxide 39 H BUN 29 H Creatinine 0.7 L Glucose 174 H POC Glucose 165 H Lactic Acid Calcium Magnesium Ferritin Total Bilirubin Direct Bilirubin AST ALT Alkaline Phosphatase Lactate Dehydrogenase C-Reactive Protein Total Protein Albumin Triglycerides Lipase Arterial Blood Glucose Arterial Blood Ionized Calcium Urine WBC (Auto) Coronavirus (PCR) SARS-CoV-2 IgG Ab Crossmatch 05/26/20 05/27/20 05/27/20 23:23 03:43 05:29 WBC RBC Hgb Hct MCV MCH MCHC RDW Lymph % (Auto) [place] % (Auto) Lymph # (Auto) [place] # (Auto) Baso # (Auto) Seg Neutrophils % Seg Neuts % (Manual) Lymphocytes % (Manual) Nucleated RBC % Seg Neutrophils # Seg Neutrophils # Man Lymphocytes # (Manual) Monocytes # (Manual) Eosinophils # (Manual) PT INR APTT D-Dimer Heparin Anti-Xa Level ABG pH 7.480 H POC ABG pCO2 52.4 H POC ABG pO2 61.4 L ABG pO2 ABG HCO3 ABG O2 Saturation ABG Base Excess ABG Hemoglobin ABG Oxyhemoglobin ABG Sodium 134.9 L ABG Potassium ABG Chloride 95.0 L ABG Glucose 221 H Oxyhemoglobin Carboxyhemoglobin Sodium Potassium Chloride Carbon Dioxide BUN Creatinine Glucose POC Glucose 169 H 227 H Lactic Acid Calcium Magnesium Ferritin Total Bilirubin Direct Bilirubin AST ALT Alkaline Phosphatase Lactate Dehydrogenase C-Reactive Protein Total Protein Albumin Triglycerides Lipase Arterial Blood Glucose 221 H Arterial Blood Ionized Calcium 4.5 L Urine WBC (Auto) Coronavirus (PCR) SARS-CoV-2 IgG Ab Crossmatch 1105/27/20 05/27/20 07:19 12:18 13:50 WBC RBC Hgb Hct MCV MCH MCHC RDW Lymph % (Auto) [place] % (Auto) Lymph # (Auto) [place] # (Auto) Baso # (Auto) Seg Neutrophils % Seg Neuts % (Manual) Lymphocytes % (Manual) Nucleated RBC % Seg Neutrophils # Seg Neutrophils # Man Lymphocytes # (Manual) Monocytes # (Manual) Eosinophils # (Manual) PT INR APTT D-Dimer Heparin Anti-Xa Level ABG pH POC ABG pCO2 POC ABG pO2 ABG pO2 ABG HCO3 ABG O2 Saturation ABG Base Excess ABG Hemoglobin ABG Oxyhemoglobin ABG Sodium ABG Potassium ABG Chloride ABG Glucose Oxyhemoglobin Carboxyhemoglobin Sodium Potassium Chloride Carbon Dioxide BUN Creatinine Glucose POC Glucose 114 H 148 H Lactic Acid Calcium Magnesium Ferritin Total Bilirubin Direct Bilirubin AST ALT Alkaline Phosphatase Lactate Dehydrogenase C-Reactive Protein Total Protein Albumin Triglycerides 247 H Lipase Arterial Blood Glucose Arterial Blood Ionized Calcium Urine WBC (Auto) Coronavirus (PCR) SARS-CoV-2 IgG Ab Crossmatch 05/28/20 05/28/20 05/28/20 00:13 04:16 05:22 WBC RBC Hgb Hct MCV MCH MCHC RDW Lymph % (Auto) [place] % (Auto) Lymph # (Auto) [place] # (Auto) Baso # (Auto) Seg Neutrophils % Seg Neuts % (Manual) Lymphocytes % (Manual) Nucleated RBC % Seg Neutrophils # Seg Neutrophils # Man Lymphocytes # (Manual) Monocytes # (Manual) Eosinophils # (Manual) PT INR APTT D-Dimer Heparin Anti-Xa Level ABG pH POC ABG pCO2 64.4 H POC ABG pO2 60.5 L ABG pO2 ABG HCO3 ABG O2 Saturation ABG Base Excess ABG Hemoglobin ABG Oxyhemoglobin ABG Sodium ABG Potassium ABG Chloride 95.0 L ABG Glucose 209 H Oxyhemoglobin Carboxyhemoglobin Sodium Potassium Chloride Carbon Dioxide BUN Creatinine Glucose POC Glucose 155 H 186 H Lactic Acid Calcium Magnesium Ferritin Total Bilirubin Direct Bilirubin AST ALT Alkaline Phosphatase Lactate Dehydrogenase C-Reactive Protein Total Protein Albumin Triglycerides Lipase Arterial Blood Glucose 209 H Arterial Blood Ionized Calcium Urine WBC (Auto) Coronavirus (PCR) SARS-CoV-2 IgG Ab Crossmatch 05/28/20 05/28/20 05/29/20 12:45 17:39 00:37 WBC RBC Hgb Hct MCV MCH MCHC RDW Lymph % (Auto) [place] % (Auto) Lymph # (Auto) [place] # (Auto) Baso # (Auto) Seg Neutrophils % Seg Neuts % (Manual) Lymphocytes % (Manual) Nucleated RBC % Seg Neutrophils # Seg Neutrophils # Man Lymphocytes # (Manual) Monocytes # (Manual) Eosinophils # (Manual) PT INR APTT D-Dimer Heparin Anti-Xa Level ABG pH POC ABG pCO2 POC ABG pO2 ABG pO2 ABG HCO3 ABG O2 Saturation ABG Base Excess ABG Hemoglobin ABG Oxyhemoglobin ABG Sodium ABG Potassium ABG Chloride ABG Glucose Oxyhemoglobin Carboxyhemoglobin Sodium Potassium Chloride Carbon Dioxide BUN Creatinine Glucose POC Glucose 143 H 164 H 221 H Lactic Acid Calcium Magnesium Ferritin Total Bilirubin Direct Bilirubin AST ALT Alkaline Phosphatase Lactate Dehydrogenase C-Reactive Protein Total Protein Albumin Triglycerides Lipase Arterial Blood Glucose Arterial Blood Ionized Calcium Urine WBC (Auto) Coronavirus (PCR) SARS-CoV-2 IgG Ab Crossmatch 05/29/20 05/29/20 05/29/20 04:15 05:33 12:34 WBC RBC Hgb Hct MCV MCH MCHC RDW Lymph % (Auto) [place] % (Auto) Lymph # (Auto) [place] # (Auto) Baso # (Auto) Seg Neutrophils % Seg Neuts % (Manual) Lymphocytes % (Manual) Nucleated RBC % Seg Neutrophils # Seg Neutrophils # Man Lymphocytes # (Manual) Monocytes # (Manual) Eosinophils # (Manual) PT INR APTT D-Dimer Heparin Anti-Xa Level ABG pH 7.463 H POC ABG pCO2 56.3 H POC ABG pO2 81.2 L ABG pO2 ABG HCO3 ABG O2 Saturation ABG Base Excess ABG Hemoglobin ABG Oxyhemoglobin ABG Sodium ABG Potassium ABG Chloride 96.0 L ABG Glucose 194 H Oxyhemoglobin Carboxyhemoglobin Sodium Potassium Chloride Carbon Dioxide BUN Creatinine Glucose POC Glucose 133 H 221 H Lactic Acid Calcium Magnesium Ferritin Total Bilirubin Direct Bilirubin AST ALT Alkaline Phosphatase Lactate Dehydrogenase C-Reactive Protein Total Protein Albumin Triglycerides Lipase Arterial Blood Glucose 194 H Arterial Blood Ionized Calcium 4.5 L Urine WBC (Auto) Coronavirus (PCR) SARS-CoV-2 IgG Ab Crossmatch 05/29/20 05/30/20 05/30/20 18:07 00:12 05:38 WBC RBC Hgb Hct MCV MCH MCHC RDW Lymph % (Auto) [place] % (Auto) Lymph # (Auto) [place] # (Auto) Baso # (Auto) Seg Neutrophils % Seg Neuts % (Manual) Lymphocytes % (Manual) Nucleated RBC % Seg Neutrophils # Seg Neutrophils # Man Lymphocytes # (Manual) Monocytes # (Manual) Eosinophils # (Manual) PT INR APTT D-Dimer Heparin Anti-Xa Level ABG pH POC ABG pCO2 POC ABG pO2 ABG pO2 ABG HCO3 ABG O2 Saturation ABG Base Excess ABG Hemoglobin ABG Oxyhemoglobin ABG Sodium ABG Potassium ABG Chloride ABG Glucose Oxyhemoglobin Carboxyhemoglobin Sodium Potassium Chloride Carbon Dioxide BUN Creatinine Glucose POC Glucose 162 H 190 H 208 H Lactic Acid Calcium Magnesium Ferritin Total Bilirubin Direct Bilirubin AST ALT Alkaline Phosphatase Lactate Dehydrogenase C-Reactive Protein Total Protein Albumin Triglycerides Lipase Arterial Blood Glucose Arterial Blood Ionized Calcium Urine WBC (Auto) Coronavirus (PCR) SARS-CoV-2 IgG Ab Crossmatch 05/30/20 05/30/20 05/30/20 09:30 11:35 11:54 WBC 12.4 H RBC 3.48 L Hgb 11.3 L Hct 34.6 L MCV 99 H MCH 33 H MCHC RDW Lymph % (Auto) [place] % (Auto) Lymph # (Auto) [place] # (Auto) Baso # (Auto) Seg Neutrophils % Seg Neuts % (Manual) Lymphocytes % (Manual) Nucleated RBC % Seg Neutrophils # Seg Neutrophils # Man Lymphocytes # (Manual) Monocytes # (Manual) Eosinophils # (Manual) PT INR APTT D-Dimer Heparin Anti-Xa Level ABG pH 7.455 H POC ABG pCO2 57.5 H POC ABG pO2 81.5 L ABG pO2 ABG HCO3 ABG O2 Saturation ABG Base Excess ABG Hemoglobin ABG Oxyhemoglobin ABG Sodium ABG Potassium ABG Chloride 96.0 L ABG Glucose 204 H Oxyhemoglobin Carboxyhemoglobin Sodium Potassium Chloride Carbon Dioxide BUN Creatinine Glucose POC Glucose 183 H Lactic Acid Calcium Magnesium Ferritin Total Bilirubin Direct Bilirubin AST ALT Alkaline Phosphatase Lactate Dehydrogenase C-Reactive Protein Total Protein Albumin Triglycerides Lipase Arterial Blood Glucose 204 H Arterial Blood Ionized Calcium Urine WBC (Auto) Coronavirus (PCR) SARS-CoV-2 IgG Ab Crossmatch 05/30/20 05/31/20 05/31/20 18:01 00:10 03:22 WBC RBC Hgb Hct MCV MCH MCHC RDW Lymph % (Auto) [place] % (Auto) Lymph # (Auto) [place] # (Auto) Baso # (Auto) Seg Neutrophils % Seg Neuts % (Manual) Lymphocytes % (Manual) Nucleated RBC % Seg Neutrophils # Seg Neutrophils # Man Lymphocytes # (Manual) Monocytes # (Manual) Eosinophils # (Manual) PT INR APTT D-Dimer Heparin Anti-Xa Level ABG pH POC ABG pCO2 60.4 H POC ABG pO2 71.5 L ABG pO2 ABG HCO3 ABG O2 Saturation ABG Base Excess ABG Hemoglobin ABG Oxyhemoglobin ABG Sodium ABG Potassium ABG Chloride 96.0 L ABG Glucose 169 H Oxyhemoglobin Carboxyhemoglobin Sodium Potassium Chloride Carbon Dioxide BUN Creatinine Glucose POC Glucose 184 H 135 H Lactic Acid Calcium Magnesium Ferritin Total Bilirubin Direct Bilirubin AST ALT Alkaline Phosphatase Lactate Dehydrogenase C-Reactive Protein Total Protein Albumin Triglycerides Lipase Arterial Blood Glucose 169 H Arterial Blood Ionized Calcium 4.5 L Urine WBC (Auto) Coronavirus (PCR) SARS-CoV-2 IgG Ab Crossmatch 05/31/20 05/31/20 05/31/20 05:24 11:18 14:41 WBC RBC Hgb Hct MCV MCH MCHC RDW Lymph % (Auto) [place] % (Auto) Lymph # (Auto) [place] # (Auto) Baso # (Auto) Seg Neutrophils % Seg Neuts % (Manual) Lymphocytes % (Manual) Nucleated RBC % Seg Neutrophils # Seg Neutrophils # Man Lymphocytes # (Manual) Monocytes # (Manual) Eosinophils # (Manual) PT INR APTT D-Dimer Heparin Anti-Xa Level ABG pH POC ABG pCO2 POC ABG pO2 ABG pO2 ABG HCO3 ABG O2 Saturation ABG Base Excess ABG Hemoglobin ABG Oxyhemoglobin ABG Sodium ABG Potassium ABG Chloride ABG Glucose Oxyhemoglobin Carboxyhemoglobin Sodium Potassium Chloride 96.8 L Carbon Dioxide 37 H BUN 31 H Creatinine 0.6 L Glucose 213 H POC Glucose 164 H 208 H Lactic Acid Calcium Magnesium Ferritin Total Bilirubin Direct Bilirubin AST ALT Alkaline Phosphatase Lactate Dehydrogenase C-Reactive Protein Total Protein Albumin Triglycerides Lipase Arterial Blood Glucose Arterial Blood Ionized Calcium Urine WBC (Auto) Coronavirus (PCR) SARS-CoV-2 IgG Ab Crossmatch 05/31/20 05/31/20 06/01/20 17:37 23:47 03:48 WBC RBC Hgb Hct MCV MCH MCHC RDW Lymph % (Auto) [place] % (Auto) Lymph # (Auto) [place] # (Auto) Baso # (Auto) Seg Neutrophils % Seg Neuts % (Manual) Lymphocytes % (Manual) Nucleated RBC % Seg Neutrophils # Seg Neutrophils # Man Lymphocytes # (Manual) Monocytes # (Manual) Eosinophils # (Manual) PT INR APTT D-Dimer Heparin Anti-Xa Level ABG pH POC ABG pCO2 59.7 H POC ABG pO2 73.9 L ABG pO2 ABG HCO3 ABG O2 Saturation ABG Base Excess ABG Hemoglobin ABG Oxyhemoglobin ABG Sodium ABG Potassium ABG Chloride 95.0 L ABG Glucose 256 H Oxyhemoglobin Carboxyhemoglobin Sodium Potassium Chloride Carbon Dioxide BUN Creatinine Glucose POC Glucose 168 H 178 H Lactic Acid Calcium Magnesium Ferritin Total Bilirubin Direct Bilirubin AST ALT Alkaline Phosphatase Lactate Dehydrogenase C-Reactive Protein Total Protein Albumin Triglycerides Lipase Arterial Blood Glucose 256 H Arterial Blood Ionized Calcium Urine WBC (Auto) Coronavirus (PCR) SARS-CoV-2 IgG Ab Crossmatch 06/01/20 06/01/20 06/01/20 05:01 07:47 07:47 WBC 14.4 H RBC 3.46 L Hgb 11.1 L Hct 34.3 L MCV 99 H MCH MCHC RDW Lymph % (Auto) [place] % (Auto) Lymph # (Auto) [place] # (Auto) Baso # (Auto) Seg Neutrophils % Seg Neuts % (Manual) 86.0 H Lymphocytes % (Manual) 9.0 L Nucleated RBC % Seg Neutrophils # Seg Neutrophils # Man 12.4 H Lymphocytes # (Manual) Monocytes # (Manual) Eosinophils # (Manual) PT INR APTT D-Dimer Heparin Anti-Xa Level ABG pH POC ABG pCO2 POC ABG pO2 ABG pO2 ABG HCO3 ABG O2 Saturation ABG Base Excess ABG Hemoglobin ABG Oxyhemoglobin ABG Sodium ABG Potassium ABG Chloride ABG Glucose Oxyhemoglobin Carboxyhemoglobin Sodium Potassium Chloride Carbon Dioxide BUN Creatinine Glucose POC Glucose 197 H Lactic Acid Calcium Magnesium Ferritin Total Bilirubin Direct Bilirubin AST ALT Alkaline Phosphatase Lactate Dehydrogenase C-Reactive Protein Total Protein Albumin Triglycerides 244 H Lipase Arterial Blood Glucose Arterial Blood Ionized Calcium Urine WBC (Auto) Coronavirus (PCR) SARS-CoV-2 IgG Ab Crossmatch 06/01/20 06/01/20 06/01/20 07:47 11:46 18:15 WBC RBC Hgb Hct MCV MCH MCHC RDW Lymph % (Auto) [place] % (Auto) Lymph # (Auto) [place] # (Auto) Baso # (Auto) Seg Neutrophils % Seg Neuts % (Manual) Lymphocytes % (Manual) Nucleated RBC % Seg Neutrophils # Seg Neutrophils # Man Lymphocytes # (Manual) Monocytes # (Manual) Eosinophils # (Manual) PT INR APTT D-Dimer Heparin Anti-Xa Level ABG pH POC ABG pCO2 POC ABG pO2 ABG pO2 ABG HCO3 ABG O2 Saturation ABG Base Excess ABG Hemoglobin ABG Oxyhemoglobin ABG Sodium ABG Potassium ABG Chloride ABG Glucose Oxyhemoglobin Carboxyhemoglobin Sodium Potassium Chloride 95.4 L Carbon Dioxide 35 H BUN 30 H Creatinine 0.5 L Glucose 214 H POC Glucose 181 H 221 H Lactic Acid Calcium Magnesium Ferritin Total Bilirubin Direct Bilirubin AST 54 H ALT 235 H Alkaline Phosphatase Lactate Dehydrogenase C-Reactive Protein Total Protein Albumin 2.9 L Triglycerides Lipase Arterial Blood Glucose Arterial Blood Ionized Calcium Urine WBC (Auto) Coronavirus (PCR) SARS-CoV-2 IgG Ab Crossmatch 06/01/20 06/02/20 06/02/20 23:12 04:00 05:31 WBC RBC Hgb Hct MCV MCH MCHC RDW Lymph % (Auto) [place] % (Auto) Lymph # (Auto) [place] # (Auto) Baso # (Auto) Seg Neutrophils % Seg Neuts % (Manual) Lymphocytes % (Manual) Nucleated RBC % Seg Neutrophils # Seg Neutrophils # Man Lymphocytes # (Manual) Monocytes # (Manual) Eosinophils # (Manual) PT INR APTT D-Dimer Heparin Anti-Xa Level ABG pH 7.465 H POC ABG pCO2 POC ABG pO2 ABG pO2 203.4 H ABG HCO3 41.2 H ABG O2 Saturation 99.3 H ABG Base Excess 15.1 H ABG Hemoglobin 11.5 L ABG Oxyhemoglobin ABG Sodium ABG Potassium ABG Chloride ABG Glucose Oxyhemoglobin Carboxyhemoglobin Sodium Potassium Chloride Carbon Dioxide BUN Creatinine Glucose POC Glucose 197 H 184 H Lactic Acid Calcium Magnesium Ferritin Total Bilirubin Direct Bilirubin AST ALT Alkaline Phosphatase Lactate Dehydrogenase C-Reactive Protein Total Protein Albumin Triglycerides Lipase Arterial Blood Glucose Arterial Blood Ionized Calcium Urine WBC (Auto) Coronavirus (PCR) SARS-CoV-2 IgG Ab Crossmatch 06/02/20 06/02/20 06/02/20 11:49 18:06 23:00 WBC RBC Hgb Hct MCV MCH MCHC RDW Lymph % (Auto) [place] % (Auto) Lymph # (Auto) [place] # (Auto) Baso # (Auto) Seg Neutrophils % Seg Neuts % (Manual) Lymphocytes % (Manual) Nucleated RBC % Seg Neutrophils # Seg Neutrophils # Man Lymphocytes # (Manual) Monocytes # (Manual) Eosinophils # (Manual) PT INR APTT D-Dimer Heparin Anti-Xa Level ABG pH POC ABG pCO2 POC ABG pO2 ABG pO2 ABG HCO3 ABG O2 Saturation ABG Base Excess ABG Hemoglobin ABG Oxyhemoglobin ABG Sodium ABG Potassium ABG Chloride ABG Glucose Oxyhemoglobin Carboxyhemoglobin Sodium Potassium Chloride Carbon Dioxide BUN Creatinine Glucose POC Glucose 195 H 177 H 228 H Lactic Acid Calcium Magnesium Ferritin Total Bilirubin Direct Bilirubin AST ALT Alkaline Phosphatase Lactate Dehydrogenase C-Reactive Protein Total Protein Albumin Triglycerides Lipase Arterial Blood Glucose Arterial Blood Ionized Calcium Urine WBC (Auto) Coronavirus (PCR) SARS-CoV-2 IgG Ab Crossmatch 06/03/20 06/03/20 06/03/20 03:58 05:19 12:21 WBC RBC Hgb Hct MCV MCH MCHC RDW Lymph % (Auto) [place] % (Auto) Lymph # (Auto) [place] # (Auto) Baso # (Auto) Seg Neutrophils % Seg Neuts % (Manual) Lymphocytes % (Manual) Nucleated RBC % Seg Neutrophils # Seg Neutrophils # Man Lymphocytes # (Manual) Monocytes # (Manual) Eosinophils # (Manual) PT INR APTT D-Dimer Heparin Anti-Xa Level ABG pH POC ABG pCO2 POC ABG pO2 ABG pO2 171.0 H ABG HCO3 42.8 H ABG O2 Saturation ABG Base Excess 15.6 H ABG Hemoglobin 12.3 L ABG Oxyhemoglobin ABG Sodium ABG Potassium ABG Chloride ABG Glucose Oxyhemoglobin Carboxyhemoglobin Sodium Potassium Chloride Carbon Dioxide BUN Creatinine Glucose POC Glucose 122 H 207 H Lactic Acid Calcium Magnesium Ferritin Total Bilirubin Direct Bilirubin AST ALT Alkaline Phosphatase Lactate Dehydrogenase C-Reactive Protein Total Protein Albumin Triglycerides Lipase Arterial Blood Glucose Arterial Blood Ionized Calcium Urine WBC (Auto) Coronavirus (PCR) SARS-CoV-2 IgG Ab Crossmatch 06/03/20 06/03/20 06/04/20 17:27 23:50 03:55 WBC RBC Hgb Hct MCV MCH MCHC RDW Lymph % (Auto) [place] % (Auto) Lymph # (Auto) [place] # (Auto) Baso # (Auto) Seg Neutrophils % Seg Neuts % (Manual) Lymphocytes % (Manual) Nucleated RBC % Seg Neutrophils # Seg Neutrophils # Man Lymphocytes # (Manual) Monocytes # (Manual) Eosinophils # (Manual) PT INR APTT D-Dimer Heparin Anti-Xa Level ABG pH POC ABG pCO2 POC ABG pO2 ABG pO2 117.2 H ABG HCO3 42.4 H ABG O2 Saturation ABG Base Excess 15.3 H ABG Hemoglobin 10.5 L ABG Oxyhemoglobin ABG Sodium ABG Potassium ABG Chloride ABG Glucose Oxyhemoglobin Carboxyhemoglobin Sodium Potassium Chloride Carbon Dioxide BUN Creatinine Glucose POC Glucose 157 H 214 H Lactic Acid Calcium Magnesium Ferritin Total Bilirubin Direct Bilirubin AST ALT Alkaline Phosphatase Lactate Dehydrogenase C-Reactive Protein Total Protein Albumin Triglycerides Lipase Arterial Blood Glucose Arterial Blood Ionized Calcium Urine WBC (Auto) Coronavirus (PCR) SARS-CoV-2 IgG Ab Crossmatch 06/04/20 06/04/20 06/04/20 05:49 11:41 17:30 WBC RBC Hgb Hct MCV MCH MCHC RDW Lymph % (Auto) [place] % (Auto) Lymph # (Auto) [place] # (Auto) Baso # (Auto) Seg Neutrophils % Seg Neuts % (Manual) Lymphocytes % (Manual) Nucleated RBC % Seg Neutrophils # Seg Neutrophils # Man Lymphocytes # (Manual) Monocytes # (Manual) Eosinophils # (Manual) PT INR APTT D-Dimer Heparin Anti-Xa Level ABG pH POC ABG pCO2 POC ABG pO2 ABG pO2 ABG HCO3 ABG O2 Saturation ABG Base Excess ABG Hemoglobin ABG Oxyhemoglobin ABG Sodium ABG Potassium ABG Chloride ABG Glucose Oxyhemoglobin Carboxyhemoglobin Sodium Potassium Chloride Carbon Dioxide BUN Creatinine Glucose POC Glucose 149 H 233 H 156 H Lactic Acid Calcium Magnesium Ferritin Total Bilirubin Direct Bilirubin AST ALT Alkaline Phosphatase Lactate Dehydrogenase C-Reactive Protein Total Protein Albumin Triglycerides Lipase Arterial Blood Glucose Arterial Blood Ionized Calcium Urine WBC (Auto) Coronavirus (PCR) SARS-CoV-2 IgG Ab Crossmatch 06/04/20 06/04/20 06/04/20 19:01 20:53 23:41 WBC RBC 3.18 L Hgb 10.8 L Hct 31.8 L MCV 100 H MCH 34 H MCHC RDW Lymph % (Auto) [place] % (Auto) Lymph # (Auto) [place] # (Auto) Baso # (Auto) Seg Neutrophils % Seg Neuts % (Manual) 86.0 H Lymphocytes % (Manual) 10.0 L Nucleated RBC % 1.0 H Seg Neutrophils # Seg Neutrophils # Man 8.5 H Lymphocytes # (Manual) 1.0 L Monocytes # (Manual) Eosinophils # (Manual) PT INR APTT D-Dimer Heparin Anti-Xa Level ABG pH POC ABG pCO2 POC ABG pO2 ABG pO2 ABG HCO3 ABG O2 Saturation ABG Base Excess ABG Hemoglobin ABG Oxyhemoglobin ABG Sodium ABG Potassium ABG Chloride ABG Glucose Oxyhemoglobin Carboxyhemoglobin Sodium Potassium 3.4 L D Chloride 96.5 L Carbon Dioxide 41 H* BUN 27 H Creatinine 0.5 L Glucose 173 H POC Glucose 217 H Lactic Acid Calcium Magnesium Ferritin Total Bilirubin Direct Bilirubin AST ALT Alkaline Phosphatase Lactate Dehydrogenase C-Reactive Protein Total Protein Albumin Triglycerides Lipase Arterial Blood Glucose Arterial Blood Ionized Calcium Urine WBC (Auto) Coronavirus (PCR) SARS-CoV-2 IgG Ab Crossmatch 06/05/20 06/05/20 06/05/20 06:05 11:54 12:35 WBC RBC Hgb Hct MCV MCH MCHC RDW Lymph % (Auto) [place] % (Auto) Lymph # (Auto) [place] # (Auto) Baso # (Auto) Seg Neutrophils % Seg Neuts % (Manual) Lymphocytes % (Manual) Nucleated RBC % Seg Neutrophils # Seg Neutrophils # Man Lymphocytes # (Manual) Monocytes # (Manual) Eosinophils # (Manual) PT INR APTT D-Dimer Heparin Anti-Xa Level ABG pH POC ABG pCO2 POC ABG pO2 ABG pO2 127.9 H ABG HCO3 41.1 H ABG O2 Saturation ABG Base Excess 13.0 H ABG Hemoglobin 13.4 L ABG Oxyhemoglobin ABG Sodium ABG Potassium ABG Chloride ABG Glucose Oxyhemoglobin Carboxyhemoglobin Sodium Potassium Chloride Carbon Dioxide BUN Creatinine Glucose POC Glucose 137 H 211 H Lactic Acid Calcium Magnesium Ferritin Total Bilirubin Direct Bilirubin AST ALT Alkaline Phosphatase Lactate Dehydrogenase C-Reactive Protein Total Protein Albumin Triglycerides Lipase Arterial Blood Glucose Arterial Blood Ionized Calcium Urine WBC (Auto) Coronavirus (PCR) SARS-CoV-2 IgG Ab Crossmatch 06/05/20 06/05/20 06/06/20 17:03 23:49 04:42 WBC RBC Hgb Hct MCV MCH MCHC RDW Lymph % (Auto) [place] % (Auto) Lymph # (Auto) [place] # (Auto) Baso # (Auto) Seg Neutrophils % Seg Neuts % (Manual) Lymphocytes % (Manual) Nucleated RBC % Seg Neutrophils # Seg Neutrophils # Man Lymphocytes # (Manual) Monocytes # (Manual) Eosinophils # (Manual) PT INR APTT D-Dimer Heparin Anti-Xa Level ABG pH POC ABG pCO2 56.1 H POC ABG pO2 52.5 L ABG pO2 ABG HCO3 ABG O2 Saturation ABG Base Excess ABG Hemoglobin 11.7 L ABG Oxyhemoglobin ABG Sodium ABG Potassium 3.3 L ABG Chloride 95.0 L ABG Glucose 156 H Oxyhemoglobin Carboxyhemoglobin Sodium Potassium Chloride Carbon Dioxide BUN Creatinine Glucose POC Glucose 159 H 194 H Lactic Acid Calcium Magnesium Ferritin Total Bilirubin Direct Bilirubin AST ALT Alkaline Phosphatase Lactate Dehydrogenase C-Reactive Protein Total Protein Albumin Triglycerides Lipase Arterial Blood Glucose 156 H Arterial Blood Ionized Calcium Urine WBC (Auto) Coronavirus (PCR) SARS-CoV-2 IgG Ab Crossmatch 06/06/20 06/06/20 06/06/20 05:57 12:06 17:38 WBC RBC Hgb Hct MCV MCH MCHC RDW Lymph % (Auto) [place] % (Auto) Lymph # (Auto) [place] # (Auto) Baso # (Auto) Seg Neutrophils % Seg Neuts % (Manual) Lymphocytes % (Manual) Nucleated RBC % Seg Neutrophils # Seg Neutrophils # Man Lymphocytes # (Manual) Monocytes # (Manual) Eosinophils # (Manual) PT INR APTT D-Dimer Heparin Anti-Xa Level ABG pH POC ABG pCO2 POC ABG pO2 ABG pO2 ABG HCO3 ABG O2 Saturation ABG Base Excess ABG Hemoglobin ABG Oxyhemoglobin ABG Sodium ABG Potassium ABG Chloride ABG Glucose Oxyhemoglobin Carboxyhemoglobin Sodium Potassium Chloride Carbon Dioxide BUN Creatinine Glucose POC Glucose 144 H 230 H 162 H Lactic Acid Calcium Magnesium Ferritin Total Bilirubin Direct Bilirubin AST ALT Alkaline Phosphatase Lactate Dehydrogenase C-Reactive Protein Total Protein Albumin Triglycerides Lipase Arterial Blood Glucose Arterial Blood Ionized Calcium Urine WBC (Auto) Coronavirus (PCR) SARS-CoV-2 IgG Ab Crossmatch 06/06/20 06/07/20 06/07/20 23:50 04:34 06:03 WBC RBC Hgb Hct MCV MCH MCHC RDW Lymph % (Auto) [place] % (Auto) Lymph # (Auto) [place] # (Auto) Baso # (Auto) Seg Neutrophils % Seg Neuts % (Manual) Lymphocytes % (Manual) Nucleated RBC % Seg Neutrophils # Seg Neutrophils # Man Lymphocytes # (Manual) Monocytes # (Manual) Eosinophils # (Manual) PT INR APTT D-Dimer Heparin Anti-Xa Level ABG pH 7.511 H POC ABG pCO2 53.5 H POC ABG pO2 114.5 H ABG pO2 ABG HCO3 ABG O2 Saturation ABG Base Excess ABG Hemoglobin 9.4 L ABG Oxyhemoglobin ABG Sodium 134.5 L ABG Potassium ABG Chloride 94.0 L ABG Glucose 186 H Oxyhemoglobin Carboxyhemoglobin Sodium Potassium Chloride Carbon Dioxide BUN Creatinine Glucose POC Glucose 181 H 155 H Lactic Acid Calcium Magnesium Ferritin Total Bilirubin Direct Bilirubin AST ALT Alkaline Phosphatase Lactate Dehydrogenase C-Reactive Protein Total Protein Albumin Triglycerides Lipase Arterial Blood Glucose 186 H Arterial Blood Ionized Calcium 4.5 L Urine WBC (Auto) Coronavirus (PCR) SARS-CoV-2 IgG Ab Crossmatch 06/07/20 06/07/20 06/07/20 13:41 14:58 14:58 WBC RBC 2.72 L Hgb 9.3 L Hct 27.2 L MCV 100 H MCH 34 H MCHC RDW Lymph % (Auto) [place] % (Auto) Lymph # (Auto) [place] # (Auto) Baso # (Auto) Seg Neutrophils % Seg Neuts % (Manual) Lymphocytes % (Manual) Nucleated RBC % Seg Neutrophils # Seg Neutrophils # Man Lymphocytes # (Manual) Monocytes # (Manual) Eosinophils # (Manual) PT INR APTT D-Dimer Heparin Anti-Xa Level ABG pH POC ABG pCO2 POC ABG pO2 ABG pO2 ABG HCO3 ABG O2 Saturation ABG Base Excess ABG Hemoglobin ABG Oxyhemoglobin ABG Sodium ABG Potassium ABG Chloride ABG Glucose Oxyhemoglobin Carboxyhemoglobin Sodium Potassium Chloride 93.5 L Carbon Dioxide 39 H BUN 22 H Creatinine 0.4 L Glucose 188 H POC Glucose 201 H Lactic Acid Calcium Magnesium Ferritin Total Bilirubin Direct Bilirubin AST 61 H ALT 273 H Alkaline Phosphatase Lactate Dehydrogenase C-Reactive Protein Total Protein 5.9 L Albumin 2.7 L Triglycerides Lipase Arterial Blood Glucose Arterial Blood Ionized Calcium Urine WBC (Auto) Coronavirus (PCR) SARS-CoV-2 IgG Ab Crossmatch 06/07/20 06/08/20 06/08/20 23:18 05:31 12:07 WBC RBC Hgb Hct MCV MCH MCHC RDW Lymph % (Auto) [place] % (Auto) Lymph # (Auto) [place] # (Auto) Baso # (Auto) Seg Neutrophils % Seg Neuts % (Manual) Lymphocytes % (Manual) Nucleated RBC % Seg Neutrophils # Seg Neutrophils # Man Lymphocytes # (Manual) Monocytes # (Manual) Eosinophils # (Manual) PT INR APTT D-Dimer Heparin Anti-Xa Level ABG pH POC ABG pCO2 POC ABG pO2 ABG pO2 ABG HCO3 ABG O2 Saturation ABG Base Excess ABG Hemoglobin ABG Oxyhemoglobin ABG Sodium ABG Potassium ABG Chloride ABG Glucose Oxyhemoglobin Carboxyhemoglobin Sodium Potassium Chloride Carbon Dioxide BUN Creatinine Glucose POC Glucose 214 H 129 H 179 H Lactic Acid Calcium Magnesium Ferritin Total Bilirubin Direct Bilirubin AST ALT Alkaline Phosphatase Lactate Dehydrogenase C-Reactive Protein Total Protein Albumin Triglycerides Lipase Arterial Blood Glucose Arterial Blood Ionized Calcium Urine WBC (Auto) Coronavirus (PCR) SARS-CoV-2 IgG Ab Crossmatch 06/08/20 06/08/20 06/09/20 18:18 23:35 05:42 WBC RBC Hgb Hct MCV MCH MCHC RDW Lymph % (Auto) [place] % (Auto) Lymph # (Auto) [place] # (Auto) Baso # (Auto) Seg Neutrophils % Seg Neuts % (Manual) Lymphocytes % (Manual) Nucleated RBC % Seg Neutrophils # Seg Neutrophils # Man Lymphocytes # (Manual) Monocytes # (Manual) Eosinophils # (Manual) PT INR APTT D-Dimer Heparin Anti-Xa Level ABG pH POC ABG pCO2 POC ABG pO2 ABG pO2 ABG HCO3 ABG O2 Saturation ABG Base Excess ABG Hemoglobin ABG Oxyhemoglobin ABG Sodium ABG Potassium ABG Chloride ABG Glucose Oxyhemoglobin Carboxyhemoglobin Sodium Potassium Chloride Carbon Dioxide BUN Creatinine Glucose POC Glucose 172 H 177 H 137 H Lactic Acid Calcium Magnesium Ferritin Total Bilirubin Direct Bilirubin AST ALT Alkaline Phosphatase Lactate Dehydrogenase C-Reactive Protein Total Protein Albumin Triglycerides Lipase Arterial Blood Glucose Arterial Blood Ionized Calcium Urine WBC (Auto) Coronavirus (PCR) SARS-CoV-2 IgG Ab Crossmatch 06/09/20 06/09/20 06/09/20 06:20 07:55 07:55 WBC 12.4 H RBC 3.26 L Hgb 11.1 L Hct 33.4 L D MCV 102 H MCH 34 H MCHC RDW Lymph % (Auto) [place] % (Auto) Lymph # (Auto) [place] # (Auto) Baso # (Auto) Seg Neutrophils % Seg Neuts % (Manual) Lymphocytes % (Manual) Nucleated RBC % Seg Neutrophils # Seg Neutrophils # Man Lymphocytes # (Manual) Monocytes # (Manual) Eosinophils # (Manual) PT INR APTT D-Dimer Heparin Anti-Xa Level ABG pH 7.466 H POC ABG pCO2 50.7 H POC ABG pO2 53.0 L ABG pO2 ABG HCO3 ABG O2 Saturation ABG Base Excess ABG Hemoglobin ABG Oxyhemoglobin ABG Sodium ABG Potassium 2.9 L ABG Chloride 93.0 L ABG Glucose 138 H Oxyhemoglobin Carboxyhemoglobin Sodium Potassium 3.0 L Chloride 92.3 L Carbon Dioxide 37 H BUN 21 H Creatinine 0.6 L Glucose 120 H POC Glucose Lactic Acid Calcium Magnesium Ferritin Total Bilirubin Direct Bilirubin AST ALT Alkaline Phosphatase Lactate Dehydrogenase C-Reactive Protein Total Protein Albumin Triglycerides Lipase Arterial Blood Glucose 138 H Arterial Blood Ionized Calcium 4.5 L Urine WBC (Auto) Coronavirus (PCR) SARS-CoV-2 IgG Ab Crossmatch 06/09/20 06/09/20 06/10/20 11:22 18:32 04:46 WBC RBC Hgb Hct MCV MCH MCHC RDW Lymph % (Auto) [place] % (Auto) Lymph # (Auto) [place] # (Auto) Baso # (Auto) Seg Neutrophils % Seg Neuts % (Manual) Lymphocytes % (Manual) Nucleated RBC % Seg Neutrophils # Seg Neutrophils # Man Lymphocytes # (Manual) Monocytes # (Manual) Eosinophils # (Manual) PT INR APTT D-Dimer Heparin Anti-Xa Level ABG pH 7.501 H POC ABG pCO2 POC ABG pO2 126.5 H ABG pO2 ABG HCO3 ABG O2 Saturation ABG Base Excess ABG Hemoglobin 10.3 L ABG Oxyhemoglobin ABG Sodium ABG Potassium ABG Chloride ABG Glucose 220 H Oxyhemoglobin Carboxyhemoglobin Sodium Potassium Chloride Carbon Dioxide BUN Creatinine Glucose POC Glucose 117 H 121 H Lactic Acid Calcium Magnesium Ferritin Total Bilirubin Direct Bilirubin AST ALT Alkaline Phosphatase Lactate Dehydrogenase C-Reactive Protein Total Protein Albumin Triglycerides Lipase Arterial Blood Glucose 220 H Arterial Blood Ionized Calcium Urine WBC (Auto) Coronavirus (PCR) SARS-CoV-2 IgG Ab Crossmatch 06/10/20 06/10/20 06/10/20 05:30 09:38 12:03 WBC RBC Hgb Hct MCV MCH MCHC RDW Lymph % (Auto) [place] % (Auto) Lymph # (Auto) [place] # (Auto) Baso # (Auto) Seg Neutrophils % Seg Neuts % (Manual) Lymphocytes % (Manual) Nucleated RBC % Seg Neutrophils # Seg Neutrophils # Man Lymphocytes # (Manual) Monocytes # (Manual) Eosinophils # (Manual) PT INR APTT D-Dimer Heparin Anti-Xa Level ABG pH POC ABG pCO2 POC ABG pO2 ABG pO2 ABG HCO3 ABG O2 Saturation ABG Base Excess ABG Hemoglobin ABG Oxyhemoglobin ABG Sodium ABG Potassium ABG Chloride ABG Glucose Oxyhemoglobin Carboxyhemoglobin Sodium Potassium Chloride Carbon Dioxide BUN Creatinine Glucose POC Glucose 181 H 204 H Lactic Acid Calcium Magnesium Ferritin Total Bilirubin Direct Bilirubin AST ALT Alkaline Phosphatase Lactate Dehydrogenase C-Reactive Protein Total Protein Albumin Triglycerides 738 H Lipase Arterial Blood Glucose Arterial Blood Ionized Calcium Urine WBC (Auto) Coronavirus (PCR) SARS-CoV-2 IgG Ab Crossmatch 06/10/20 06/11/20 06/11/20 17:17 00:04 04:38 WBC RBC Hgb Hct MCV MCH MCHC RDW Lymph % (Auto) [place] % (Auto) Lymph # (Auto) [place] # (Auto) Baso # (Auto) Seg Neutrophils % Seg Neuts % (Manual) Lymphocytes % (Manual) Nucleated RBC % Seg Neutrophils # Seg Neutrophils # Man Lymphocytes # (Manual) Monocytes # (Manual) Eosinophils # (Manual) PT INR APTT D-Dimer Heparin Anti-Xa Level ABG pH 7.479 H POC ABG pCO2 POC ABG pO2 76.7 L ABG pO2 ABG HCO3 ABG O2 Saturation ABG Base Excess ABG Hemoglobin 9.8 L ABG Oxyhemoglobin ABG Sodium 135.8 L ABG Potassium ABG Chloride ABG Glucose 238 H Oxyhemoglobin Carboxyhemoglobin Sodium Potassium Chloride Carbon Dioxide BUN Creatinine Glucose POC Glucose 156 H 178 H Lactic Acid Calcium Magnesium Ferritin Total Bilirubin Direct Bilirubin AST ALT Alkaline Phosphatase Lactate Dehydrogenase C-Reactive Protein Total Protein Albumin Triglycerides Lipase Arterial Blood Glucose 238 H Arterial Blood Ionized Calcium Urine WBC (Auto) Coronavirus (PCR) SARS-CoV-2 IgG Ab Crossmatch 06/11/20 06/11/20 06/11/20 05:21 06:52 11:50 WBC RBC Hgb Hct MCV MCH MCHC RDW Lymph % (Auto) [place] % (Auto) Lymph # (Auto) [place] # (Auto) Baso # (Auto) Seg Neutrophils % Seg Neuts % (Manual) Lymphocytes % (Manual) Nucleated RBC % Seg Neutrophils # Seg Neutrophils # Man Lymphocytes # (Manual) Monocytes # (Manual) Eosinophils # (Manual) PT INR APTT D-Dimer Heparin Anti-Xa Level ABG pH POC ABG pCO2 POC ABG pO2 ABG pO2 ABG HCO3 ABG O2 Saturation ABG Base Excess ABG Hemoglobin ABG Oxyhemoglobin ABG Sodium ABG Potassium ABG Chloride ABG Glucose Oxyhemoglobin Carboxyhemoglobin Sodium Potassium Chloride Carbon Dioxide BUN Creatinine Glucose POC Glucose 215 H 187 H Lactic Acid Calcium Magnesium Ferritin Total Bilirubin Direct Bilirubin AST ALT Alkaline Phosphatase Lactate Dehydrogenase C-Reactive Protein Total Protein Albumin Triglycerides 331 H Lipase Arterial Blood Glucose Arterial Blood Ionized Calcium Urine WBC (Auto) Coronavirus (PCR) SARS-CoV-2 IgG Ab Crossmatch 06/11/20 06/11/20 06/12/20 17:49 23:35 04:52 WBC RBC Hgb Hct MCV MCH MCHC RDW Lymph % (Auto) [place] % (Auto) Lymph # (Auto) [place] # (Auto) Baso # (Auto) Seg Neutrophils % Seg Neuts % (Manual) Lymphocytes % (Manual) Nucleated RBC % Seg Neutrophils # Seg Neutrophils # Man Lymphocytes # (Manual) Monocytes # (Manual) Eosinophils # (Manual) PT INR APTT D-Dimer Heparin Anti-Xa Level ABG pH 7.486 H POC ABG pCO2 POC ABG pO2 ABG pO2 ABG HCO3 ABG O2 Saturation ABG Base Excess ABG Hemoglobin 9.4 L ABG Oxyhemoglobin ABG Sodium ABG Potassium 3.2 L ABG Chloride ABG Glucose 209 H Oxyhemoglobin Carboxyhemoglobin Sodium Potassium Chloride Carbon Dioxide BUN Creatinine Glucose POC Glucose 211 H 200 H Lactic Acid Calcium Magnesium Ferritin Total Bilirubin Direct Bilirubin AST ALT Alkaline Phosphatase Lactate Dehydrogenase C-Reactive Protein Total Protein Albumin Triglycerides Lipase Arterial Blood Glucose 209 H Arterial Blood Ionized Calcium Urine WBC (Auto) Coronavirus (PCR) SARS-CoV-2 IgG Ab Crossmatch 06/12/20 06/12/20 06/12/20 05:13 11:47 18:33 WBC RBC Hgb Hct MCV MCH MCHC RDW Lymph % (Auto) [place] % (Auto) Lymph # (Auto) [place] # (Auto) Baso # (Auto) Seg Neutrophils % Seg Neuts % (Manual) Lymphocytes % (Manual) Nucleated RBC % Seg Neutrophils # Seg Neutrophils # Man Lymphocytes # (Manual) Monocytes # (Manual) Eosinophils # (Manual) PT INR APTT D-Dimer Heparin Anti-Xa Level ABG pH POC ABG pCO2 POC ABG pO2 ABG pO2 ABG HCO3 ABG O2 Saturation ABG Base Excess ABG Hemoglobin ABG Oxyhemoglobin ABG Sodium ABG Potassium ABG Chloride ABG Glucose Oxyhemoglobin Carboxyhemoglobin Sodium Potassium Chloride Carbon Dioxide BUN Creatinine Glucose POC Glucose 174 H 214 H 194 H Lactic Acid Calcium Magnesium Ferritin Total Bilirubin Direct Bilirubin AST ALT Alkaline Phosphatase Lactate Dehydrogenase C-Reactive Protein Total Protein Albumin Triglycerides Lipase Arterial Blood Glucose Arterial Blood Ionized Calcium Urine WBC (Auto) Coronavirus (PCR) SARS-CoV-2 IgG Ab Crossmatch 06/12/20 06/13/20 06/13/20 23:49 05:41 12:30 WBC RBC Hgb Hct MCV MCH MCHC RDW Lymph % (Auto) [place] % (Auto) Lymph # (Auto) [place] # (Auto) Baso # (Auto) Seg Neutrophils % Seg Neuts % (Manual) Lymphocytes % (Manual) Nucleated RBC % Seg Neutrophils # Seg Neutrophils # Man Lymphocytes # (Manual) Monocytes # (Manual) Eosinophils # (Manual) PT INR APTT D-Dimer Heparin Anti-Xa Level ABG pH POC ABG pCO2 POC ABG pO2 ABG pO2 ABG HCO3 ABG O2 Saturation ABG Base Excess ABG Hemoglobin ABG Oxyhemoglobin ABG Sodium ABG Potassium ABG Chloride ABG Glucose Oxyhemoglobin Carboxyhemoglobin Sodium Potassium Chloride Carbon Dioxide BUN Creatinine Glucose POC Glucose 160 H 150 H 181 H Lactic Acid Calcium Magnesium Ferritin Total Bilirubin Direct Bilirubin AST ALT Alkaline Phosphatase Lactate Dehydrogenase C-Reactive Protein Total Protein Albumin Triglycerides Lipase Arterial Blood Glucose Arterial Blood Ionized Calcium Urine WBC (Auto) Coronavirus (PCR) SARS-CoV-2 IgG Ab Crossmatch 06/13/20 06/13/20 06/13/20 14:14 17:48 23:27 WBC 12.8 H RBC 2.33 L Hgb 8.0 L Hct 23.3 L MCV 100 H MCH 34 H MCHC RDW 15.7 H Lymph % (Auto) [place] % (Auto) Lymph # (Auto) [place] # (Auto) Baso # (Auto) Seg Neutrophils % Seg Neuts % (Manual) 85.0 H Lymphocytes % (Manual) 10.0 L Nucleated RBC % Seg Neutrophils # Seg Neutrophils # Man 10.9 H Lymphocytes # (Manual) Monocytes # (Manual) Eosinophils # (Manual) PT INR APTT D-Dimer Heparin Anti-Xa Level ABG pH POC ABG pCO2 POC ABG pO2 ABG pO2 ABG HCO3 ABG O2 Saturation ABG Base Excess ABG Hemoglobin ABG Oxyhemoglobin ABG Sodium ABG Potassium ABG Chloride ABG Glucose Oxyhemoglobin Carboxyhemoglobin Sodium Potassium Chloride Carbon Dioxide BUN Creatinine Glucose POC Glucose 173 H 154 H Lactic Acid Calcium Magnesium Ferritin Total Bilirubin Direct Bilirubin AST ALT Alkaline Phosphatase Lactate Dehydrogenase C-Reactive Protein Total Protein Albumin Triglycerides Lipase Arterial Blood Glucose Arterial Blood Ionized Calcium Urine WBC (Auto) Coronavirus (PCR) SARS-CoV-2 IgG Ab Crossmatch 06/14/20 06/14/20 06/14/20 03:58 05:21 07:15 WBC 26.2 H RBC 2.97 L Hgb 9.7 L Hct 29.9 L D MCV 101 H MCH 33 H MCHC RDW 15.3 H Lymph % (Auto) [place] % (Auto) Lymph # (Auto) [place] # (Auto) Baso # (Auto) Seg Neutrophils % Seg Neuts % (Manual) 79.0 H Lymphocytes % (Manual) 5.0 L Nucleated RBC % 3.0 H Seg Neutrophils # Seg Neutrophils # Man 20.7 H Lymphocytes # (Manual) Monocytes # (Manual) 1.3 H Eosinophils # (Manual) PT INR APTT D-Dimer Heparin Anti-Xa Level ABG pH POC ABG pCO2 51.5 H POC ABG pO2 70.0 L ABG pO2 ABG HCO3 ABG O2 Saturation ABG Base Excess ABG Hemoglobin 10.1 L ABG Oxyhemoglobin ABG Sodium 131.5 L ABG Potassium 3.1 L ABG Chloride 93.0 L ABG Glucose 188 H Oxyhemoglobin Carboxyhemoglobin Sodium Potassium Chloride Carbon Dioxide BUN Creatinine Glucose POC Glucose 147 H Lactic Acid Calcium Magnesium Ferritin Total Bilirubin Direct Bilirubin AST ALT Alkaline Phosphatase Lactate Dehydrogenase C-Reactive Protein Total Protein Albumin Triglycerides Lipase Arterial Blood Glucose 188 H Arterial Blood Ionized Calcium Urine WBC (Auto) Coronavirus (PCR) SARS-CoV-2 IgG Ab Crossmatch 06/14/20 06/14/20 06/14/20 07:15 11:30 11:50 WBC RBC Hgb Hct MCV MCH MCHC RDW Lymph % (Auto) [place] % (Auto) Lymph # (Auto) [place] # (Auto) Baso # (Auto) Seg Neutrophils % Seg Neuts % (Manual) Lymphocytes % (Manual) Nucleated RBC % Seg Neutrophils # Seg Neutrophils # Man Lymphocytes # (Manual) Monocytes # (Manual) Eosinophils # (Manual) PT INR APTT D-Dimer Heparin Anti-Xa Level ABG pH POC ABG pCO2 POC ABG pO2 ABG pO2 ABG HCO3 ABG O2 Saturation ABG Base Excess ABG Hemoglobin ABG Oxyhemoglobin ABG Sodium ABG Potassium ABG Chloride ABG Glucose Oxyhemoglobin Carboxyhemoglobin Sodium 135 L Potassium 3.5 L Chloride 90.4 L Carbon Dioxide 38 H BUN Creatinine 0.5 L Glucose 190 H POC Glucose 176 H Lactic Acid Calcium Magnesium Ferritin 1496.0 H Total Bilirubin Direct Bilirubin AST ALT 81 H Alkaline Phosphatase Lactate Dehydrogenase C-Reactive Protein Total Protein Albumin 2.9 L Triglycerides Lipase Arterial Blood Glucose Arterial Blood Ionized Calcium Urine WBC (Auto) Coronavirus (PCR) SARS-CoV-2 IgG Ab Crossmatch 06/14/20 06/15/20 06/15/20 23:31 04:00 05:00 WBC RBC Hgb Hct MCV MCH MCHC RDW Lymph % (Auto) [place] % (Auto) Lymph # (Auto) [place] # (Auto) Baso # (Auto) Seg Neutrophils % Seg Neuts % (Manual) Lymphocytes % (Manual) Nucleated RBC % Seg Neutrophils # Seg Neutrophils # Man Lymphocytes # (Manual) Monocytes # (Manual) Eosinophils # (Manual) PT INR APTT D-Dimer Heparin Anti-Xa Level ABG pH POC ABG pCO2 POC ABG pO2 ABG pO2 ABG HCO3 ABG O2 Saturation ABG Base Excess ABG Hemoglobin ABG Oxyhemoglobin ABG Sodium ABG Potassium ABG Chloride ABG Glucose Oxyhemoglobin Carboxyhemoglobin Sodium 133 L Potassium Chloride 91.1 L Carbon Dioxide 34 H BUN Creatinine 0.4 L Glucose 159 H POC Glucose 200 H Lactic Acid Calcium Magnesium Ferritin Total Bilirubin 2.00 H Direct Bilirubin AST 47 H ALT 77 H Alkaline Phosphatase Lactate Dehydrogenase C-Reactive Protein Total Protein Albumin 2.6 L Triglycerides 152 H Lipase Arterial Blood Glucose Arterial Blood Ionized Calcium Urine WBC (Auto) Coronavirus (PCR) SARS-CoV-2 IgG Ab Crossmatch 06/15/20 06/15/20 06/15/20 05:35 06:27 11:38 WBC RBC Hgb Hct MCV MCH MCHC RDW Lymph % (Auto) [place] % (Auto) Lymph # (Auto) [place] # (Auto) Baso # (Auto) Seg Neutrophils % Seg Neuts % (Manual) Lymphocytes % (Manual) Nucleated RBC % Seg Neutrophils # Seg Neutrophils # Man Lymphocytes # (Manual) Monocytes # (Manual) Eosinophils # (Manual) PT INR APTT D-Dimer Heparin Anti-Xa Level ABG pH POC ABG pCO2 61.0 H POC ABG pO2 67.9 L ABG pO2 ABG HCO3 ABG O2 Saturation ABG Base Excess ABG Hemoglobin 10.4 L ABG Oxyhemoglobin ABG Sodium 132.7 L ABG Potassium 3.3 L ABG Chloride 92.0 L ABG Glucose 158 H Oxyhemoglobin Carboxyhemoglobin Sodium Potassium Chloride Carbon Dioxide BUN Creatinine Glucose POC Glucose 148 H 197 H Lactic Acid Calcium Magnesium Ferritin Total Bilirubin Direct Bilirubin AST ALT Alkaline Phosphatase Lactate Dehydrogenase C-Reactive Protein Total Protein Albumin Triglycerides Lipase Arterial Blood Glucose 158 H Arterial Blood Ionized Calcium Urine WBC (Auto) Coronavirus (PCR) SARS-CoV-2 IgG Ab Crossmatch 06/15/20 06/15/20 06/16/20 17:29 Unknown 00:01 WBC 20.7 H RBC 2.57 L Hgb 8.9 L Hct 25.8 L MCV 101 H MCH 35 H MCHC 35 H RDW 16.0 H Lymph % (Auto) [place] % (Auto) Lymph # (Auto) [place] # (Auto) Baso # (Auto) Seg Neutrophils % Seg Neuts % (Manual) 83.0 H Lymphocytes % (Manual) 8.0 L Nucleated RBC % Seg Neutrophils # Seg Neutrophils # Man 17.2 H Lymphocytes # (Manual) Monocytes # (Manual) 1.2 H Eosinophils # (Manual) PT INR APTT D-Dimer Heparin Anti-Xa Level ABG pH POC ABG pCO2 POC ABG pO2 ABG pO2 ABG HCO3 ABG O2 Saturation ABG Base Excess ABG Hemoglobin ABG Oxyhemoglobin ABG Sodium ABG Potassium ABG Chloride ABG Glucose Oxyhemoglobin Carboxyhemoglobin Sodium Potassium Chloride Carbon Dioxide BUN Creatinine Glucose POC Glucose 231 H 257 H Lactic Acid Calcium Magnesium Ferritin Total Bilirubin Direct Bilirubin AST ALT Alkaline Phosphatase Lactate Dehydrogenase C-Reactive Protein Total Protein Albumin Triglycerides Lipase Arterial Blood Glucose Arterial Blood Ionized Calcium Urine WBC (Auto) Coronavirus (PCR) SARS-CoV-2 IgG Ab Crossmatch 06/16/20 06/16/20 06/16/20 04:00 04:00 05:22 WBC 13.8 H RBC 2.03 L Hgb 7.6 L Hct 20.7 L MCV 102 H MCH 37 H MCHC 37 H RDW 16.2 H Lymph % (Auto) 4.4 L [place] % (Auto) Lymph # (Auto) 0.6 L [place] # (Auto) Baso # (Auto) Seg Neutrophils % Seg Neuts % (Manual) Lymphocytes % (Manual) Nucleated RBC % Seg Neutrophils # 12.7 H Seg Neutrophils # Man Lymphocytes # (Manual) Monocytes # (Manual) Eosinophils # (Manual) PT INR APTT D-Dimer Heparin Anti-Xa Level ABG pH POC ABG pCO2 POC ABG pO2 ABG pO2 ABG HCO3 ABG O2 Saturation ABG Base Excess ABG Hemoglobin ABG Oxyhemoglobin ABG Sodium ABG Potassium ABG Chloride ABG Glucose Oxyhemoglobin Carboxyhemoglobin Sodium 130 L Potassium Chloride 88.9 L Carbon Dioxide 36 H BUN Creatinine 0.3 L Glucose 276 H POC Glucose 250 H Lactic Acid Calcium Magnesium Ferritin Total Bilirubin Direct Bilirubin AST ALT Alkaline Phosphatase Lactate Dehydrogenase C-Reactive Protein Total Protein Albumin Triglycerides Lipase Arterial Blood Glucose Arterial Blood Ionized Calcium Urine WBC (Auto) Coronavirus (PCR) SARS-CoV-2 IgG Ab Crossmatch 06/16/20 06/16/20 06/17/20 12:44 18:18 00:39 WBC RBC Hgb Hct MCV MCH MCHC RDW Lymph % (Auto) [place] % (Auto) Lymph # (Auto) [place] # (Auto) Baso # (Auto) Seg Neutrophils % Seg Neuts % (Manual) Lymphocytes % (Manual) Nucleated RBC % Seg Neutrophils # Seg Neutrophils # Man Lymphocytes # (Manual) Monocytes # (Manual) Eosinophils # (Manual) PT INR APTT D-Dimer Heparin Anti-Xa Level ABG pH POC ABG pCO2 POC ABG pO2 ABG pO2 ABG HCO3 ABG O2 Saturation ABG Base Excess ABG Hemoglobin ABG Oxyhemoglobin ABG Sodium ABG Potassium ABG Chloride ABG Glucose Oxyhemoglobin Carboxyhemoglobin Sodium Potassium Chloride Carbon Dioxide BUN Creatinine Glucose POC Glucose 279 H 239 H 247 H Lactic Acid Calcium Magnesium Ferritin Total Bilirubin Direct Bilirubin AST ALT Alkaline Phosphatase Lactate Dehydrogenase C-Reactive Protein Total Protein Albumin Triglycerides Lipase Arterial Blood Glucose Arterial Blood Ionized Calcium Urine WBC (Auto) Coronavirus (PCR) SARS-CoV-2 IgG Ab Crossmatch 06/17/20 06/17/20 06/17/20 03:40 04:08 10:54 WBC RBC Hgb Hct MCV MCH MCHC RDW Lymph % (Auto) [place] % (Auto) Lymph # (Auto) [place] # (Auto) Baso # (Auto) Seg Neutrophils % Seg Neuts % (Manual) Lymphocytes % (Manual) Nucleated RBC % Seg Neutrophils # Seg Neutrophils # Man Lymphocytes # (Manual) Monocytes # (Manual) Eosinophils # (Manual) PT INR APTT D-Dimer Heparin Anti-Xa Level ABG pH POC ABG pCO2 65.7 H POC ABG pO2 ABG pO2 ABG HCO3 ABG O2 Saturation ABG Base Excess ABG Hemoglobin 11.9 L ABG Oxyhemoglobin ABG Sodium ABG Potassium ABG Chloride 93.0 L ABG Glucose 244 H Oxyhemoglobin Carboxyhemoglobin Sodium Potassium Chloride Carbon Dioxide BUN Creatinine Glucose POC Glucose 221 H 248 H Lactic Acid Calcium Magnesium Ferritin Total Bilirubin Direct Bilirubin AST ALT Alkaline Phosphatase Lactate Dehydrogenase C-Reactive Protein Total Protein Albumin Triglycerides Lipase Arterial Blood Glucose 244 H Arterial Blood Ionized Calcium Urine WBC (Auto) Coronavirus (PCR) SARS-CoV-2 IgG Ab Crossmatch 06/17/20 06/17/20 06/17/20 17:47 23:11 23:29 WBC RBC Hgb Hct MCV MCH MCHC RDW Lymph % (Auto) [place] % (Auto) Lymph # (Auto) [place] # (Auto) Baso # (Auto) Seg Neutrophils % Seg Neuts % (Manual) Lymphocytes % (Manual) Nucleated RBC % Seg Neutrophils # Seg Neutrophils # Man Lymphocytes # (Manual) Monocytes # (Manual) Eosinophils # (Manual) PT INR APTT D-Dimer Heparin Anti-Xa Level ABG pH POC ABG pCO2 85.2 H POC ABG pO2 48.4 L ABG pO2 ABG HCO3 ABG O2 Saturation ABG Base Excess ABG Hemoglobin 8.0 L ABG Oxyhemoglobin ABG Sodium ABG Potassium ABG Chloride 95.0 L ABG Glucose 292 H Oxyhemoglobin Carboxyhemoglobin Sodium Potassium Chloride Carbon Dioxide BUN Creatinine Glucose POC Glucose 245 H 252 H Lactic Acid Calcium Magnesium Ferritin Total Bilirubin Direct Bilirubin AST ALT Alkaline Phosphatase Lactate Dehydrogenase C-Reactive Protein Total Protein Albumin Triglycerides Lipase Arterial Blood Glucose 292 H Arterial Blood Ionized Calcium Urine WBC (Auto) Coronavirus (PCR) SARS-CoV-2 IgG Ab Crossmatch 06/18/20 06/18/20 06/18/20 03:14 05:34 11:47 WBC RBC Hgb Hct MCV MCH MCHC RDW Lymph % (Auto) [place] % (Auto) Lymph # (Auto) [place] # (Auto) Baso # (Auto) Seg Neutrophils % Seg Neuts % (Manual) Lymphocytes % (Manual) Nucleated RBC % Seg Neutrophils # Seg Neutrophils # Man Lymphocytes # (Manual) Monocytes # (Manual) Eosinophils # (Manual) PT INR APTT D-Dimer Heparin Anti-Xa Level ABG pH POC ABG pCO2 65.4 H POC ABG pO2 160.7 H ABG pO2 ABG HCO3 ABG O2 Saturation ABG Base Excess ABG Hemoglobin 7.8 L ABG Oxyhemoglobin ABG Sodium ABG Potassium ABG Chloride 95.0 L ABG Glucose 251 H Oxyhemoglobin Carboxyhemoglobin Sodium Potassium Chloride Carbon Dioxide BUN Creatinine Glucose POC Glucose 243 H 263 H Lactic Acid Calcium Magnesium Ferritin Total Bilirubin Direct Bilirubin AST ALT Alkaline Phosphatase Lactate Dehydrogenase C-Reactive Protein Total Protein Albumin Triglycerides Lipase Arterial Blood Glucose 251 H Arterial Blood Ionized Calcium Urine WBC (Auto) Coronavirus (PCR) SARS-CoV-2 IgG Ab Crossmatch 06/18/20 06/18/20 06/19/20 17:31 23:33 04:32 WBC RBC Hgb Hct MCV MCH MCHC RDW Lymph % (Auto) [place] % (Auto) Lymph # (Auto) [place] # (Auto) Baso # (Auto) Seg Neutrophils % Seg Neuts % (Manual) Lymphocytes % (Manual) Nucleated RBC % Seg Neutrophils # Seg Neutrophils # Man Lymphocytes # (Manual) Monocytes # (Manual) Eosinophils # (Manual) PT INR APTT D-Dimer Heparin Anti-Xa Level ABG pH POC ABG pCO2 83.1 H POC ABG pO2 65.8 L ABG pO2 ABG HCO3 ABG O2 Saturation ABG Base Excess ABG Hemoglobin 8.9 L ABG Oxyhemoglobin ABG Sodium ABG Potassium ABG Chloride 96.0 L ABG Glucose 297 H Oxyhemoglobin Carboxyhemoglobin Sodium Potassium Chloride Carbon Dioxide BUN Creatinine Glucose POC Glucose 286 H 238 H Lactic Acid Calcium Magnesium Ferritin Total Bilirubin Direct Bilirubin AST ALT Alkaline Phosphatase Lactate Dehydrogenase C-Reactive Protein Total Protein Albumin Triglycerides Lipase Arterial Blood Glucose 297 H Arterial Blood Ionized Calcium Urine WBC (Auto) Coronavirus (PCR) SARS-CoV-2 IgG Ab Crossmatch 06/19/20 06/19/20 06/19/20 05:55 11:20 17:12 WBC RBC Hgb Hct MCV MCH MCHC RDW Lymph % (Auto) [place] % (Auto) Lymph # (Auto) [place] # (Auto) Baso # (Auto) Seg Neutrophils % Seg Neuts % (Manual) Lymphocytes % (Manual) Nucleated RBC % Seg Neutrophils # Seg Neutrophils # Man Lymphocytes # (Manual) Monocytes # (Manual) Eosinophils # (Manual) PT INR APTT D-Dimer Heparin Anti-Xa Level ABG pH POC ABG pCO2 POC ABG pO2 ABG pO2 ABG HCO3 ABG O2 Saturation ABG Base Excess ABG Hemoglobin ABG Oxyhemoglobin ABG Sodium ABG Potassium ABG Chloride ABG Glucose Oxyhemoglobin Carboxyhemoglobin Sodium Potassium Chloride Carbon Dioxide BUN Creatinine Glucose POC Glucose 274 H 282 H 298 H Lactic Acid Calcium Magnesium Ferritin Total Bilirubin Direct Bilirubin AST ALT Alkaline Phosphatase Lactate Dehydrogenase C-Reactive Protein Total Protein Albumin Triglycerides Lipase Arterial Blood Glucose Arterial Blood Ionized Calcium Urine WBC (Auto) Coronavirus (PCR) SARS-CoV-2 IgG Ab Crossmatch 06/19/20 06/20/20 06/20/20 23:08 03:33 06:01 WBC RBC Hgb Hct MCV MCH MCHC RDW Lymph % (Auto) [place] % (Auto) Lymph # (Auto) [place] # (Auto) Baso # (Auto) Seg Neutrophils % Seg Neuts % (Manual) Lymphocytes % (Manual) Nucleated RBC % Seg Neutrophils # Seg Neutrophils # Man Lymphocytes # (Manual) Monocytes # (Manual) Eosinophils # (Manual) PT INR APTT D-Dimer Heparin Anti-Xa Level ABG pH POC ABG pCO2 POC ABG pO2 ABG pO2 69.9 L ABG HCO3 50.8 H ABG O2 Saturation ABG Base Excess 24.2 H ABG Hemoglobin 5.8 L ABG Oxyhemoglobin ABG Sodium ABG Potassium ABG Chloride ABG Glucose Oxyhemoglobin Carboxyhemoglobin Sodium Potassium Chloride Carbon Dioxide BUN Creatinine Glucose POC Glucose 293 H 182 H Lactic Acid Calcium Magnesium Ferritin Total Bilirubin Direct Bilirubin AST ALT Alkaline Phosphatase Lactate Dehydrogenase C-Reactive Protein Total Protein Albumin Triglycerides Lipase Arterial Blood Glucose Arterial Blood Ionized Calcium Urine WBC (Auto) Coronavirus (PCR) SARS-CoV-2 IgG Ab Crossmatch 06/20/20 06/20/20 06/20/20 11:47 17:46 23:37 WBC RBC Hgb Hct MCV MCH MCHC RDW Lymph % (Auto) [place] % (Auto) Lymph # (Auto) [place] # (Auto) Baso # (Auto) Seg Neutrophils % Seg Neuts % (Manual) Lymphocytes % (Manual) Nucleated RBC % Seg Neutrophils # Seg Neutrophils # Man Lymphocytes # (Manual) Monocytes # (Manual) Eosinophils # (Manual) PT INR APTT D-Dimer Heparin Anti-Xa Level ABG pH POC ABG pCO2 POC ABG pO2 ABG pO2 ABG HCO3 ABG O2 Saturation ABG Base Excess ABG Hemoglobin ABG Oxyhemoglobin ABG Sodium ABG Potassium ABG Chloride ABG Glucose Oxyhemoglobin Carboxyhemoglobin Sodium Potassium Chloride Carbon Dioxide BUN Creatinine Glucose POC Glucose 170 H 215 H 256 H Lactic Acid Calcium Magnesium Ferritin Total Bilirubin Direct Bilirubin AST ALT Alkaline Phosphatase Lactate Dehydrogenase C-Reactive Protein Total Protein Albumin Triglycerides Lipase Arterial Blood Glucose Arterial Blood Ionized Calcium Urine WBC (Auto) Coronavirus (PCR) SARS-CoV-2 IgG Ab Crossmatch 06/21/20 06/21/20 06/21/20 04:00 05:14 05:51 WBC RBC Hgb Hct MCV MCH MCHC RDW Lymph % (Auto) [place] % (Auto) Lymph # (Auto) [place] # (Auto) Baso # (Auto) Seg Neutrophils % Seg Neuts % (Manual) Lymphocytes % (Manual) Nucleated RBC % Seg Neutrophils # Seg Neutrophils # Man Lymphocytes # (Manual) Monocytes # (Manual) Eosinophils # (Manual) PT INR APTT D-Dimer Heparin Anti-Xa Level ABG pH 7.474 H POC ABG pCO2 POC ABG pO2 ABG pO2 ABG HCO3 52.1 H ABG O2 Saturation ABG Base Excess 23.3 H ABG Hemoglobin 5.3 L ABG Oxyhemoglobin ABG Sodium ABG Potassium ABG Chloride ABG Glucose Oxyhemoglobin 93.8 L Carboxyhemoglobin Sodium Potassium Chloride Carbon Dioxide BUN Creatinine Glucose POC Glucose 122 H 129 H Lactic Acid Calcium Magnesium Ferritin Total Bilirubin Direct Bilirubin AST ALT Alkaline Phosphatase Lactate Dehydrogenase C-Reactive Protein Total Protein Albumin Triglycerides Lipase Arterial Blood Glucose Arterial Blood Ionized Calcium Urine WBC (Auto) Coronavirus (PCR) SARS-CoV-2 IgG Ab Crossmatch 06/21/20 06/21/20 06/21/20 11:00 11:00 11:42 WBC 14.2 H RBC 1.85 L Hgb 6.2 L Hct 19.5 L* MCV 105 H MCH 34 H MCHC RDW 18.0 H Lymph % (Auto) [place] % (Auto) Lymph # (Auto) [place] # (Auto) Baso # (Auto) Seg Neutrophils % Seg Neuts % (Manual) Lymphocytes % (Manual) Nucleated RBC % Seg Neutrophils # Seg Neutrophils # Man Lymphocytes # (Manual) Monocytes # (Manual) Eosinophils # (Manual) PT INR APTT D-Dimer Heparin Anti-Xa Level ABG pH POC ABG pCO2 POC ABG pO2 ABG pO2 ABG HCO3 ABG O2 Saturation ABG Base Excess ABG Hemoglobin ABG Oxyhemoglobin ABG Sodium ABG Potassium ABG Chloride ABG Glucose Oxyhemoglobin Carboxyhemoglobin Sodium 147 H Potassium Chloride Carbon Dioxide 51 H* BUN 31 H Creatinine 0.5 L Glucose 224 H POC Glucose 217 H Lactic Acid Calcium Magnesium Ferritin Total Bilirubin Direct Bilirubin AST ALT Alkaline Phosphatase Lactate Dehydrogenase C-Reactive Protein Total Protein Albumin Triglycerides Lipase Arterial Blood Glucose Arterial Blood Ionized Calcium Urine WBC (Auto) Coronavirus (PCR) SARS-CoV-2 IgG Ab Crossmatch 06/21/20 06/21/20 06/21/20 14:18 14:30 18:36 WBC RBC Hgb Hct MCV MCH MCHC RDW Lymph % (Auto) [place] % (Auto) Lymph # (Auto) [place] # (Auto) Baso # (Auto) Seg Neutrophils % Seg Neuts % (Manual) Lymphocytes % (Manual) Nucleated RBC % Seg Neutrophils # Seg Neutrophils # Man Lymphocytes # (Manual) Monocytes # (Manual) Eosinophils # (Manual) PT 15.1 H INR 1.19 H APTT D-Dimer Heparin Anti-Xa Level ABG pH POC ABG pCO2 POC ABG pO2 ABG pO2 ABG HCO3 ABG O2 Saturation ABG Base Excess ABG Hemoglobin ABG Oxyhemoglobin ABG Sodium ABG Potassium ABG Chloride ABG Glucose Oxyhemoglobin Carboxyhemoglobin Sodium Potassium Chloride Carbon Dioxide BUN Creatinine Glucose POC Glucose 185 H Lactic Acid Calcium Magnesium Ferritin Total Bilirubin Direct Bilirubin AST ALT Alkaline Phosphatase Lactate Dehydrogenase C-Reactive Protein Total Protein Albumin Triglycerides Lipase Arterial Blood Glucose Arterial Blood Ionized Calcium Urine WBC (Auto) Coronavirus (PCR) SARS-CoV-2 IgG Ab Crossmatch See Detail 06/21/20 06/22/20 06/22/20 21:14 03:50 04:00 WBC RBC Hgb Hct MCV MCH MCHC RDW Lymph % (Auto) [place] % (Auto) Lymph # (Auto) [place] # (Auto) Baso # (Auto) Seg Neutrophils % Seg Neuts % (Manual) Lymphocytes % (Manual) Nucleated RBC % Seg Neutrophils # Seg Neutrophils # Man Lymphocytes # (Manual) Monocytes # (Manual) Eosinophils # (Manual) PT INR APTT D-Dimer Heparin Anti-Xa Level ABG pH 7.451 H POC ABG pCO2 POC ABG pO2 ABG pO2 ABG HCO3 47.5 H ABG O2 Saturation ABG Base Excess 22.0 H ABG Hemoglobin < 5.1 L ABG Oxyhemoglobin ABG Sodium ABG Potassium ABG Chloride ABG Glucose Oxyhemoglobin 94.1 L Carboxyhemoglobin Sodium 149 H Potassium 3.5 L Chloride Carbon Dioxide 42 H* D BUN 34 H Creatinine 0.4 L Glucose 219 H POC Glucose 250 H Lactic Acid Calcium Magnesium Ferritin Total Bilirubin Direct Bilirubin AST ALT Alkaline Phosphatase Lactate Dehydrogenase C-Reactive Protein Total Protein Albumin Triglycerides Lipase Arterial Blood Glucose Arterial Blood Ionized Calcium Urine WBC (Auto) Coronavirus (PCR) SARS-CoV-2 IgG Ab Crossmatch 06/22/20 06/22/20 06/22/20 12:16 14:29 17:56 WBC RBC Hgb Hct MCV MCH MCHC RDW Lymph % (Auto) [place] % (Auto) Lymph # (Auto) [place] # (Auto) Baso # (Auto) Seg Neutrophils % Seg Neuts % (Manual) Lymphocytes % (Manual) Nucleated RBC % Seg Neutrophils # Seg Neutrophils # Man Lymphocytes # (Manual) Monocytes # (Manual) Eosinophils # (Manual) PT 11.8 L INR APTT 23.5 L D-Dimer Heparin Anti-Xa Level ABG pH POC ABG pCO2 POC ABG pO2 ABG pO2 ABG HCO3 ABG O2 Saturation ABG Base Excess ABG Hemoglobin ABG Oxyhemoglobin ABG Sodium ABG Potassium ABG Chloride ABG Glucose Oxyhemoglobin Carboxyhemoglobin Sodium Potassium Chloride Carbon Dioxide BUN Creatinine Glucose POC Glucose 215 H 215 H Lactic Acid Calcium Magnesium Ferritin Total Bilirubin Direct Bilirubin AST ALT Alkaline Phosphatase Lactate Dehydrogenase C-Reactive Protein Total Protein Albumin Triglycerides Lipase Arterial Blood Glucose Arterial Blood Ionized Calcium Urine WBC (Auto) Coronavirus (PCR) SARS-CoV-2 IgG Ab Crossmatch 06/22/20 06/22/20 06/22/20 23:36 23:45 Unknown WBC 14.1 H RBC 2.70 L Hgb 8.9 L 8.9 L Hct 26.9 L 27.2 L D MCV 101 H MCH 33 H MCHC RDW 17.7 H Lymph % (Auto) [place] % (Auto) Lymph # (Auto) [place] # (Auto) Baso # (Auto) Seg Neutrophils % Seg Neuts % (Manual) 92.0 H Lymphocytes % (Manual) 5.0 L Nucleated RBC % Seg Neutrophils # Seg Neutrophils # Man 13.0 H Lymphocytes # (Manual) 0.7 L Monocytes # (Manual) Eosinophils # (Manual) PT INR APTT D-Dimer Heparin Anti-Xa Level ABG pH POC ABG pCO2 POC ABG pO2 ABG pO2 ABG HCO3 ABG O2 Saturation ABG Base Excess ABG Hemoglobin ABG Oxyhemoglobin ABG Sodium ABG Potassium ABG Chloride ABG Glucose Oxyhemoglobin Carboxyhemoglobin Sodium Potassium Chloride Carbon Dioxide BUN Creatinine Glucose POC Glucose 208 H Lactic Acid Calcium Magnesium Ferritin Total Bilirubin Direct Bilirubin AST ALT Alkaline Phosphatase Lactate Dehydrogenase C-Reactive Protein Total Protein Albumin Triglycerides Lipase Arterial Blood Glucose Arterial Blood Ionized Calcium Urine WBC (Auto) Coronavirus (PCR) SARS-CoV-2 IgG Ab Crossmatch 06/23/20 06/23/20 06/23/20 05:17 05:19 06:50 WBC RBC Hgb Hct MCV MCH MCHC RDW Lymph % (Auto) [place] % (Auto) Lymph # (Auto) [place] # (Auto) Baso # (Auto) Seg Neutrophils % Seg Neuts % (Manual) Lymphocytes % (Manual) Nucleated RBC % Seg Neutrophils # Seg Neutrophils # Man Lymphocytes # (Manual) Monocytes # (Manual) Eosinophils # (Manual) PT INR APTT D-Dimer Heparin Anti-Xa Level ABG pH POC ABG pCO2 69.7 H POC ABG pO2 63.3 L ABG pO2 ABG HCO3 ABG O2 Saturation ABG Base Excess ABG Hemoglobin 10.1 L ABG Oxyhemoglobin ABG Sodium ABG Potassium 3.3 L ABG Chloride ABG Glucose 226 H Oxyhemoglobin Carboxyhemoglobin Sodium Potassium 3.0 L Chloride Carbon Dioxide 41 H* BUN 26 H Creatinine 0.4 L Glucose 209 H POC Glucose 200 H Lactic Acid Calcium Magnesium Ferritin Total Bilirubin Direct Bilirubin AST ALT Alkaline Phosphatase Lactate Dehydrogenase C-Reactive Protein Total Protein Albumin 2.9 L Triglycerides Lipase Arterial Blood Glucose 226 H Arterial Blood Ionized Calcium Urine WBC (Auto) Coronavirus (PCR) SARS-CoV-2 IgG Ab Crossmatch 06/23/20 06/23/20 06/23/20 09:41 12:04 18:16 WBC RBC Hgb 9.1 L Hct 28.0 L MCV MCH MCHC RDW Lymph % (Auto) [place] % (Auto) Lymph # (Auto) [place] # (Auto) Baso # (Auto) Seg Neutrophils % Seg Neuts % (Manual) Lymphocytes % (Manual) Nucleated RBC % Seg Neutrophils # Seg Neutrophils # Man Lymphocytes # (Manual) Monocytes # (Manual) Eosinophils # (Manual) PT INR APTT D-Dimer Heparin Anti-Xa Level ABG pH POC ABG pCO2 POC ABG pO2 ABG pO2 ABG HCO3 ABG O2 Saturation ABG Base Excess ABG Hemoglobin ABG Oxyhemoglobin ABG Sodium ABG Potassium ABG Chloride ABG Glucose Oxyhemoglobin Carboxyhemoglobin Sodium Potassium Chloride Carbon Dioxide BUN Creatinine Glucose POC Glucose 146 H 162 H Lactic Acid Calcium Magnesium Ferritin Total Bilirubin Direct Bilirubin AST ALT Alkaline Phosphatase Lactate Dehydrogenase C-Reactive Protein Total Protein Albumin Triglycerides Lipase Arterial Blood Glucose Arterial Blood Ionized Calcium Urine WBC (Auto) Coronavirus (PCR) SARS-CoV-2 IgG Ab Crossmatch 06/23/20 06/23/20 06/24/20 23:24 23:41 02:39 WBC RBC Hgb 8.2 L 8.8 L Hct 24.9 L 26.8 L MCV MCH MCHC RDW Lymph % (Auto) [place] % (Auto) Lymph # (Auto) [place] # (Auto) Baso # (Auto) Seg Neutrophils % Seg Neuts % (Manual) Lymphocytes % (Manual) Nucleated RBC % Seg Neutrophils # Seg Neutrophils # Man Lymphocytes # (Manual) Monocytes # (Manual) Eosinophils # (Manual) PT INR APTT D-Dimer Heparin Anti-Xa Level ABG pH POC ABG pCO2 POC ABG pO2 ABG pO2 ABG HCO3 ABG O2 Saturation ABG Base Excess ABG Hemoglobin ABG Oxyhemoglobin ABG Sodium ABG Potassium ABG Chloride ABG Glucose Oxyhemoglobin Carboxyhemoglobin Sodium Potassium Chloride Carbon Dioxide BUN Creatinine Glucose POC Glucose 248 H Lactic Acid Calcium Magnesium Ferritin Total Bilirubin Direct Bilirubin AST ALT Alkaline Phosphatase Lactate Dehydrogenase C-Reactive Protein Total Protein Albumin Triglycerides Lipase Arterial Blood Glucose Arterial Blood Ionized Calcium Urine WBC (Auto) Coronavirus (PCR) SARS-CoV-2 IgG Ab Crossmatch 06/24/20 06/24/20 06/24/20 02:39 02:45 05:31 WBC RBC Hgb Hct MCV MCH MCHC RDW Lymph % (Auto) [place] % (Auto) Lymph # (Auto) [place] # (Auto) Baso # (Auto) Seg Neutrophils % Seg Neuts % (Manual) Lymphocytes % (Manual) Nucleated RBC % Seg Neutrophils # Seg Neutrophils # Man Lymphocytes # (Manual) Monocytes # (Manual) Eosinophils # (Manual) PT INR APTT D-Dimer Heparin Anti-Xa Level ABG pH POC ABG pCO2 66.9 H POC ABG pO2 109.7 H ABG pO2 ABG HCO3 ABG O2 Saturation ABG Base Excess ABG Hemoglobin 9.7 L ABG Oxyhemoglobin ABG Sodium 135.0 L ABG Potassium ABG Chloride 97.0 L ABG Glucose 277 H Oxyhemoglobin Carboxyhemoglobin Sodium 136 L Potassium Chloride 95.0 L Carbon Dioxide 34 H D BUN 24 H Creatinine 0.3 L Glucose 260 H POC Glucose 164 H Lactic Acid Calcium Magnesium Ferritin Total Bilirubin Direct Bilirubin AST ALT Alkaline Phosphatase Lactate Dehydrogenase C-Reactive Protein Total Protein 5.2 L Albumin 2.6 L Triglycerides Lipase Arterial Blood Glucose 277 H Arterial Blood Ionized Calcium Urine WBC (Auto) Coronavirus (PCR) SARS-CoV-2 IgG Ab Crossmatch 06/24/20 06/24/20 06/24/20 10:00 11:49 17:39 WBC RBC Hgb 8.9 L Hct 26.5 L MCV MCH MCHC RDW Lymph % (Auto) [place] % (Auto) Lymph # (Auto) [place] # (Auto) Baso # (Auto) Seg Neutrophils % Seg Neuts % (Manual) Lymphocytes % (Manual) Nucleated RBC % Seg Neutrophils # Seg Neutrophils # Man Lymphocytes # (Manual) Monocytes # (Manual) Eosinophils # (Manual) PT INR APTT D-Dimer Heparin Anti-Xa Level ABG pH POC ABG pCO2 POC ABG pO2 ABG pO2 ABG HCO3 ABG O2 Saturation ABG Base Excess ABG Hemoglobin ABG Oxyhemoglobin ABG Sodium ABG Potassium ABG Chloride ABG Glucose Oxyhemoglobin Carboxyhemoglobin Sodium Potassium Chloride Carbon Dioxide BUN Creatinine Glucose POC Glucose 198 H 223 H Lactic Acid Calcium Magnesium Ferritin Total Bilirubin Direct Bilirubin AST ALT Alkaline Phosphatase Lactate Dehydrogenase C-Reactive Protein Total Protein Albumin Triglycerides Lipase Arterial Blood Glucose Arterial Blood Ionized Calcium Urine WBC (Auto) Coronavirus (PCR) SARS-CoV-2 IgG Ab Crossmatch 06/24/20 06/25/20 06/25/20 23:56 02:16 04:08 WBC RBC Hgb Hct MCV MCH MCHC RDW Lymph % (Auto) [place] % (Auto) Lymph # (Auto) [place] # (Auto) Baso # (Auto) Seg Neutrophils % Seg Neuts % (Manual) Lymphocytes % (Manual) Nucleated RBC % Seg Neutrophils # Seg Neutrophils # Man Lymphocytes # (Manual) Monocytes # (Manual) Eosinophils # (Manual) PT INR APTT D-Dimer Heparin Anti-Xa Level ABG pH 7.454 H POC ABG pCO2 56.9 H POC ABG pO2 61.0 L ABG pO2 ABG HCO3 ABG O2 Saturation ABG Base Excess ABG Hemoglobin ABG Oxyhemoglobin ABG Sodium 134.3 L ABG Potassium ABG Chloride 92.0 L ABG Glucose 246 H Oxyhemoglobin Carboxyhemoglobin Sodium 134 L Potassium Chloride 89.7 L Carbon Dioxide 36 H BUN Creatinine 0.3 L Glucose 254 H POC Glucose 225 H Lactic Acid Calcium Magnesium Ferritin Total Bilirubin Direct Bilirubin AST ALT Alkaline Phosphatase Lactate Dehydrogenase C-Reactive Protein Total Protein Albumin 2.9 L Triglycerides Lipase Arterial Blood Glucose 246 H Arterial Blood Ionized Calcium Urine WBC (Auto) Coronavirus (PCR) SARS-CoV-2 IgG Ab Crossmatch 06/25/20 06/25/20 06/25/20 05:44 11:35 17:33 WBC RBC Hgb Hct MCV MCH MCHC RDW Lymph % (Auto) [place] % (Auto) Lymph # (Auto) [place] # (Auto) Baso # (Auto) Seg Neutrophils % Seg Neuts % (Manual) Lymphocytes % (Manual) Nucleated RBC % Seg Neutrophils # Seg Neutrophils # Man Lymphocytes # (Manual) Monocytes # (Manual) Eosinophils # (Manual) PT INR APTT D-Dimer Heparin Anti-Xa Level ABG pH POC ABG pCO2 POC ABG pO2 ABG pO2 ABG HCO3 ABG O2 Saturation ABG Base Excess ABG Hemoglobin ABG Oxyhemoglobin ABG Sodium ABG Potassium ABG Chloride ABG Glucose Oxyhemoglobin Carboxyhemoglobin Sodium Potassium Chloride Carbon Dioxide BUN Creatinine Glucose POC Glucose 170 H 175 H 229 H Lactic Acid Calcium Magnesium Ferritin Total Bilirubin Direct Bilirubin AST ALT Alkaline Phosphatase Lactate Dehydrogenase C-Reactive Protein Total Protein Albumin Triglycerides Lipase Arterial Blood Glucose Arterial Blood Ionized Calcium Urine WBC (Auto) Coronavirus (PCR) SARS-CoV-2 IgG Ab Crossmatch 06/25/20 06/26/20 06/26/20 23:55 02:17 02:17 WBC RBC Hgb 10.0 L Hct 30.4 L MCV MCH MCHC RDW Lymph % (Auto) [place] % (Auto) Lymph # (Auto) [place] # (Auto) Baso # (Auto) Seg Neutrophils % Seg Neuts % (Manual) Lymphocytes % (Manual) Nucleated RBC % Seg Neutrophils # Seg Neutrophils # Man Lymphocytes # (Manual) Monocytes # (Manual) Eosinophils # (Manual) PT INR APTT D-Dimer Heparin Anti-Xa Level ABG pH POC ABG pCO2 POC ABG pO2 ABG pO2 ABG HCO3 ABG O2 Saturation ABG Base Excess ABG Hemoglobin ABG Oxyhemoglobin ABG Sodium ABG Potassium ABG Chloride ABG Glucose Oxyhemoglobin Carboxyhemoglobin Sodium 136 L Potassium Chloride 90.1 L Carbon Dioxide 39 H BUN Creatinine 0.2 L Glucose 232 H POC Glucose 192 H Lactic Acid Calcium Magnesium Ferritin Total Bilirubin Direct Bilirubin AST ALT Alkaline Phosphatase Lactate Dehydrogenase C-Reactive Protein Total Protein 6.1 L Albumin 2.9 L Triglycerides Lipase Arterial Blood Glucose Arterial Blood Ionized Calcium Urine WBC (Auto) Coronavirus (PCR) SARS-CoV-2 IgG Ab Crossmatch 06/26/20 06/26/20 06/26/20 04:15 04:49 05:28 WBC RBC Hgb Hct MCV MCH MCHC RDW Lymph % (Auto) [place] % (Auto) Lymph # (Auto) [place] # (Auto) Baso # (Auto) Seg Neutrophils % Seg Neuts % (Manual) Lymphocytes % (Manual) Nucleated RBC % Seg Neutrophils # Seg Neutrophils # Man Lymphocytes # (Manual) Monocytes # (Manual) Eosinophils # (Manual) PT INR APTT D-Dimer Heparin Anti-Xa Level ABG pH 7.453 H POC ABG pCO2 59.6 H POC ABG pO2 ABG pO2 ABG HCO3 ABG O2 Saturation ABG Base Excess ABG Hemoglobin 10.0 L ABG Oxyhemoglobin ABG Sodium 134.2 L ABG Potassium 3.3 L ABG Chloride 92.0 L ABG Glucose 305 H Oxyhemoglobin Carboxyhemoglobin Sodium Potassium Chloride Carbon Dioxide BUN Creatinine Glucose POC Glucose 234 H Lactic Acid Calcium Magnesium Ferritin Total Bilirubin Direct Bilirubin AST ALT Alkaline Phosphatase Lactate Dehydrogenase C-Reactive Protein Total Protein Albumin Triglycerides 203 H Lipase Arterial Blood Glucose 305 H Arterial Blood Ionized Calcium Urine WBC (Auto) Coronavirus (PCR) SARS-CoV-2 IgG Ab Crossmatch 06/26/20 06/26/20 06/26/20 11:58 17:58 21:32 WBC RBC Hgb Hct MCV MCH MCHC RDW Lymph % (Auto) [place] % (Auto) Lymph # (Auto) [place] # (Auto) Baso # (Auto) Seg Neutrophils % Seg Neuts % (Manual) Lymphocytes % (Manual) Nucleated RBC % Seg Neutrophils # Seg Neutrophils # Man Lymphocytes # (Manual) Monocytes # (Manual) Eosinophils # (Manual) PT INR APTT D-Dimer Heparin Anti-Xa Level ABG pH POC ABG pCO2 POC ABG pO2 ABG pO2 ABG HCO3 ABG O2 Saturation ABG Base Excess ABG Hemoglobin ABG Oxyhemoglobin ABG Sodium ABG Potassium ABG Chloride ABG Glucose Oxyhemoglobin Carboxyhemoglobin Sodium Potassium Chloride Carbon Dioxide BUN Creatinine Glucose POC Glucose 198 H 193 H 191 H Lactic Acid Calcium Magnesium Ferritin Total Bilirubin Direct Bilirubin AST ALT Alkaline Phosphatase Lactate Dehydrogenase C-Reactive Protein Total Protein Albumin Triglycerides Lipase Arterial Blood Glucose Arterial Blood Ionized Calcium Urine WBC (Auto) Coronavirus (PCR) SARS-CoV-2 IgG Ab Crossmatch 06/26/20 06/27/20 06/27/20 23:40 04:35 05:32 WBC RBC Hgb Hct MCV MCH MCHC RDW Lymph % (Auto) [place] % (Auto) Lymph # (Auto) [place] # (Auto) Baso # (Auto) Seg Neutrophils % Seg Neuts % (Manual) Lymphocytes % (Manual) Nucleated RBC % Seg Neutrophils # Seg Neutrophils # Man Lymphocytes # (Manual) Monocytes # (Manual) Eosinophils # (Manual) PT INR APTT D-Dimer Heparin Anti-Xa Level ABG pH 7.464 H POC ABG pCO2 60.8 H POC ABG pO2 ABG pO2 ABG HCO3 ABG O2 Saturation ABG Base Excess ABG Hemoglobin 10.1 L ABG Oxyhemoglobin ABG Sodium ABG Potassium 2.9 L ABG Chloride 92.0 L ABG Glucose 298 H Oxyhemoglobin Carboxyhemoglobin Sodium Potassium Chloride Carbon Dioxide BUN Creatinine Glucose POC Glucose 241 H 211 H Lactic Acid Calcium Magnesium Ferritin Total Bilirubin Direct Bilirubin AST ALT Alkaline Phosphatase Lactate Dehydrogenase C-Reactive Protein Total Protein Albumin Triglycerides Lipase Arterial Blood Glucose 298 H Arterial Blood Ionized Calcium Urine WBC (Auto) Coronavirus (PCR) SARS-CoV-2 IgG Ab Crossmatch 06/27/20 06/27/20 06/27/20 12:37 18:08 20:52 WBC RBC Hgb Hct MCV MCH MCHC RDW Lymph % (Auto) [place] % (Auto) Lymph # (Auto) [place] # (Auto) Baso # (Auto) Seg Neutrophils % Seg Neuts % (Manual) Lymphocytes % (Manual) Nucleated RBC % Seg Neutrophils # Seg Neutrophils # Man Lymphocytes # (Manual) Monocytes # (Manual) Eosinophils # (Manual) PT INR APTT D-Dimer Heparin Anti-Xa Level ABG pH POC ABG pCO2 POC ABG pO2 ABG pO2 ABG HCO3 ABG O2 Saturation ABG Base Excess ABG Hemoglobin ABG Oxyhemoglobin ABG Sodium ABG Potassium ABG Chloride ABG Glucose Oxyhemoglobin Carboxyhemoglobin Sodium Potassium Chloride Carbon Dioxide BUN Creatinine Glucose POC Glucose 182 H 197 H 195 H Lactic Acid Calcium Magnesium Ferritin Total Bilirubin Direct Bilirubin AST ALT Alkaline Phosphatase Lactate Dehydrogenase C-Reactive Protein Total Protein Albumin Triglycerides Lipase Arterial Blood Glucose Arterial Blood Ionized Calcium Urine WBC (Auto) Coronavirus (PCR) SARS-CoV-2 IgG Ab Crossmatch 06/27/20 06/28/20 06/28/20 Unknown 04:17 04:50 WBC RBC Hgb Hct MCV MCH MCHC RDW Lymph % (Auto) [place] % (Auto) Lymph # (Auto) [place] # (Auto) Baso # (Auto) Seg Neutrophils % Seg Neuts % (Manual) Lymphocytes % (Manual) Nucleated RBC % Seg Neutrophils # Seg Neutrophils # Man Lymphocytes # (Manual) Monocytes # (Manual) Eosinophils # (Manual) PT INR APTT D-Dimer Heparin Anti-Xa Level ABG pH POC ABG pCO2 58.6 H POC ABG pO2 60.1 L ABG pO2 ABG HCO3 ABG O2 Saturation ABG Base Excess ABG Hemoglobin 10.0 L ABG Oxyhemoglobin ABG Sodium 125.3 L ABG Potassium ABG Chloride 93.0 L ABG Glucose 308 H Oxyhemoglobin Carboxyhemoglobin Sodium Potassium 2.9 L* Chloride 93.4 L Carbon Dioxide 42 H* BUN Creatinine 0.3 L Glucose 211 H POC Glucose 252 H Lactic Acid Calcium 8.1 L Magnesium Ferritin Total Bilirubin Direct Bilirubin AST ALT Alkaline Phosphatase Lactate Dehydrogenase C-Reactive Protein Total Protein 5.1 L Albumin 2.4 L Triglycerides Lipase Arterial Blood Glucose 308 H Arterial Blood Ionized Calcium Urine WBC (Auto) Coronavirus (PCR) SARS-CoV-2 IgG Ab Crossmatch 06/28/20 06/28/20 06/28/20 06:35 06:35 11:36 WBC 18.9 H RBC 2.85 L Hgb 9.5 L Hct 28.4 L MCV 100 H MCH 33 H MCHC RDW 17.3 H Lymph % (Auto) [place] % (Auto) Lymph # (Auto) [place] # (Auto) Baso # (Auto) Seg Neutrophils % 88.6 H Seg Neuts % (Manual) 95.0 H Lymphocytes % (Manual) 1.0 L Nucleated RBC % Seg Neutrophils # 15.9 H Seg Neutrophils # Man 18.0 H Lymphocytes # (Manual) 0.2 L Monocytes # (Manual) Eosinophils # (Manual) PT INR APTT D-Dimer Heparin Anti-Xa Level ABG pH POC ABG pCO2 POC ABG pO2 ABG pO2 ABG HCO3 ABG O2 Saturation ABG Base Excess ABG Hemoglobin ABG Oxyhemoglobin ABG Sodium ABG Potassium ABG Chloride ABG Glucose Oxyhemoglobin Carboxyhemoglobin Sodium Potassium Chloride 94.2 L Carbon Dioxide 38 H BUN Creatinine 0.3 L Glucose 228 H POC Glucose 243 H Lactic Acid Calcium Magnesium Ferritin Total Bilirubin Direct Bilirubin AST ALT Alkaline Phosphatase Lactate Dehydrogenase C-Reactive Protein Total Protein 6.1 L Albumin 2.7 L Triglycerides Lipase Arterial Blood Glucose Arterial Blood Ionized Calcium Urine WBC (Auto) Coronavirus (PCR) SARS-CoV-2 IgG Ab Crossmatch 06/28/20 06/28/20 06/29/20 16:53 21:10 00:06 WBC RBC Hgb Hct MCV MCH MCHC RDW Lymph % (Auto) [place] % (Auto) Lymph # (Auto) [place] # (Auto) Baso # (Auto) Seg Neutrophils % Seg Neuts % (Manual) Lymphocytes % (Manual) Nucleated RBC % Seg Neutrophils # Seg Neutrophils # Man Lymphocytes # (Manual) Monocytes # (Manual) Eosinophils # (Manual) PT INR APTT D-Dimer Heparin Anti-Xa Level ABG pH POC ABG pCO2 POC ABG pO2 ABG pO2 ABG HCO3 ABG O2 Saturation ABG Base Excess ABG Hemoglobin ABG Oxyhemoglobin ABG Sodium ABG Potassium ABG Chloride ABG Glucose Oxyhemoglobin Carboxyhemoglobin Sodium Potassium Chloride Carbon Dioxide BUN Creatinine Glucose POC Glucose 211 H 195 H 200 H Lactic Acid Calcium Magnesium Ferritin Total Bilirubin Direct Bilirubin AST ALT Alkaline Phosphatase Lactate Dehydrogenase C-Reactive Protein Total Protein Albumin Triglycerides Lipase Arterial Blood Glucose Arterial Blood Ionized Calcium Urine WBC (Auto) Coronavirus (PCR) SARS-CoV-2 IgG Ab Crossmatch 06/29/20 06/29/20 06/29/20 03:11 04:00 04:00 WBC 18.8 H RBC 2.82 L Hgb 10.1 L Hct 28.5 L MCV 101 H MCH 36 H MCHC 36 H RDW 17.5 H Lymph % (Auto) 10.7 L [place] % (Auto) Lymph # (Auto) [place] # (Auto) 1.0 H Baso # (Auto) 0.3 H Seg Neutrophils % 82.2 H Seg Neuts % (Manual) Lymphocytes % (Manual) Nucleated RBC % Seg Neutrophils # 15.5 H Seg Neutrophils # Man Lymphocytes # (Manual) Monocytes # (Manual) Eosinophils # (Manual) PT INR APTT D-Dimer Heparin Anti-Xa Level ABG pH POC ABG pCO2 57.5 H POC ABG pO2 69.1 L ABG pO2 ABG HCO3 ABG O2 Saturation ABG Base Excess ABG Hemoglobin 10.2 L ABG Oxyhemoglobin 92.3 L ABG Sodium 130.7 L ABG Potassium 3.2 L ABG Chloride 93.0 L ABG Glucose 228 H Oxyhemoglobin Carboxyhemoglobin Sodium 134 L Potassium 3.3 L Chloride 89.5 L Carbon Dioxide 40 H BUN Creatinine 0.2 L Glucose 190 H POC Glucose Lactic Acid Calcium Magnesium Ferritin Total Bilirubin Direct Bilirubin AST < 5 L ALT < 5 L Alkaline Phosphatase Lactate Dehydrogenase C-Reactive Protein Total Protein 5.9 L Albumin 2.2 L Triglycerides Lipase Arterial Blood Glucose 228 H Arterial Blood Ionized Calcium Urine WBC (Auto) Coronavirus (PCR) SARS-CoV-2 IgG Ab Crossmatch 06/29/20 06/29/20 06/29/20 05:00 05:23 09:36 WBC RBC Hgb Hct MCV MCH MCHC RDW Lymph % (Auto) [place] % (Auto) Lymph # (Auto) [place] # (Auto) Baso # (Auto) Seg Neutrophils % Seg Neuts % (Manual) Lymphocytes % (Manual) Nucleated RBC % Seg Neutrophils # Seg Neutrophils # Man Lymphocytes # (Manual) Monocytes # (Manual) Eosinophils # (Manual) PT INR APTT D-Dimer Heparin Anti-Xa Level ABG pH POC ABG pCO2 POC ABG pO2 ABG pO2 ABG HCO3 ABG O2 Saturation ABG Base Excess ABG Hemoglobin ABG Oxyhemoglobin ABG Sodium ABG Potassium ABG Chloride ABG Glucose Oxyhemoglobin Carboxyhemoglobin Sodium Potassium Chloride Carbon Dioxide BUN Creatinine Glucose POC Glucose 165 H Lactic Acid Calcium Magnesium Ferritin Total Bilirubin Direct Bilirubin AST ALT Alkaline Phosphatase Lactate Dehydrogenase C-Reactive Protein Total Protein Albumin Triglycerides 1544 H 1799 H Lipase Arterial Blood Glucose Arterial Blood Ionized Calcium Urine WBC (Auto) Coronavirus (PCR) SARS-CoV-2 IgG Ab Crossmatch 06/29/20 06/29/20 06/29/20 09:36 12:02 18:00 WBC RBC Hgb Hct MCV MCH MCHC RDW Lymph % (Auto) [place] % (Auto) Lymph # (Auto) [place] # (Auto) Baso # (Auto) Seg Neutrophils % Seg Neuts % (Manual) Lymphocytes % (Manual) Nucleated RBC % Seg Neutrophils # Seg Neutrophils # Man Lymphocytes # (Manual) Monocytes # (Manual) Eosinophils # (Manual) PT INR APTT D-Dimer Heparin Anti-Xa Level ABG pH POC ABG pCO2 POC ABG pO2 ABG pO2 ABG HCO3 ABG O2 Saturation ABG Base Excess ABG Hemoglobin ABG Oxyhemoglobin ABG Sodium ABG Potassium ABG Chloride ABG Glucose Oxyhemoglobin Carboxyhemoglobin Sodium Potassium Chloride Carbon Dioxide BUN Creatinine Glucose POC Glucose 197 H 187 H Lactic Acid Calcium Magnesium Ferritin Total Bilirubin Direct Bilirubin AST ALT Alkaline Phosphatase Lactate Dehydrogenase C-Reactive Protein Total Protein Albumin Triglycerides Lipase 86 H Arterial Blood Glucose Arterial Blood Ionized Calcium Urine WBC (Auto) Coronavirus (PCR) SARS-CoV-2 IgG Ab Crossmatch 06/29/20 06/30/20 06/30/20 23:33 03:46 05:50 WBC RBC Hgb Hct MCV MCH MCHC RDW Lymph % (Auto) [place] % (Auto) Lymph # (Auto) [place] # (Auto) Baso # (Auto) Seg Neutrophils % Seg Neuts % (Manual) Lymphocytes % (Manual) Nucleated RBC % Seg Neutrophils # Seg Neutrophils # Man Lymphocytes # (Manual) Monocytes # (Manual) Eosinophils # (Manual) PT INR APTT D-Dimer Heparin Anti-Xa Level ABG pH 7.466 H POC ABG pCO2 57.3 H POC ABG pO2 66.1 L ABG pO2 ABG HCO3 ABG O2 Saturation ABG Base Excess ABG Hemoglobin 10.2 L ABG Oxyhemoglobin 92.3 L ABG Sodium 134.4 L ABG Potassium 3.2 L ABG Chloride 94.0 L ABG Glucose 178 H Oxyhemoglobin Carboxyhemoglobin Sodium Potassium Chloride Carbon Dioxide BUN Creatinine Glucose POC Glucose 170 H 170 H Lactic Acid Calcium Magnesium Ferritin Total Bilirubin Direct Bilirubin AST ALT Alkaline Phosphatase Lactate Dehydrogenase C-Reactive Protein Total Protein Albumin Triglycerides Lipase Arterial Blood Glucose 178 H Arterial Blood Ionized Calcium Urine WBC (Auto) Coronavirus (PCR) SARS-CoV-2 IgG Ab Crossmatch 06/30/20 06/30/20 06/30/20 07:00 07:00 12:04 WBC 15.6 H RBC 2.91 L Hgb 9.8 L Hct 29.7 L MCV 102 H MCH 34 H MCHC RDW 17.8 H Lymph % (Auto) [place] % (Auto) Lymph # (Auto) [place] # (Auto) Baso # (Auto) Seg Neutrophils % Seg Neuts % (Manual) Lymphocytes % (Manual) 5.0 L Nucleated RBC % Seg Neutrophils # Seg Neutrophils # Man 14.8 H Lymphocytes # (Manual) 0.8 L Monocytes # (Manual) Eosinophils # (Manual) PT INR APTT D-Dimer Heparin Anti-Xa Level ABG pH POC ABG pCO2 POC ABG pO2 ABG pO2 ABG HCO3 ABG O2 Saturation ABG Base Excess ABG Hemoglobin ABG Oxyhemoglobin ABG Sodium ABG Potassium ABG Chloride ABG Glucose Oxyhemoglobin Carboxyhemoglobin Sodium Potassium Chloride 93.3 L Carbon Dioxide 43 H* BUN Creatinine 0.3 L Glucose 260 H POC Glucose 245 H Lactic Acid Calcium Magnesium Ferritin Total Bilirubin Direct Bilirubin AST ALT Alkaline Phosphatase Lactate Dehydrogenase C-Reactive Protein Total Protein Albumin 2.8 L Triglycerides 452 H Lipase Arterial Blood Glucose Arterial Blood Ionized Calcium Urine WBC (Auto) Coronavirus (PCR) SARS-CoV-2 IgG Ab Crossmatch 06/30/20 07/01/20 07/01/20 17:32 00:02 05:02 WBC RBC Hgb Hct MCV MCH MCHC RDW Lymph % (Auto) [place] % (Auto) Lymph # (Auto) [place] # (Auto) Baso # (Auto) Seg Neutrophils % Seg Neuts % (Manual) Lymphocytes % (Manual) Nucleated RBC % Seg Neutrophils # Seg Neutrophils # Man Lymphocytes # (Manual) Monocytes # (Manual) Eosinophils # (Manual) PT INR APTT D-Dimer Heparin Anti-Xa Level ABG pH POC ABG pCO2 58.1 H POC ABG pO2 ABG pO2 ABG HCO3 ABG O2 Saturation ABG Base Excess ABG Hemoglobin 11.2 L ABG Oxyhemoglobin ABG Sodium 132.7 L ABG Potassium ABG Chloride 92.0 L ABG Glucose 238 H Oxyhemoglobin Carboxyhemoglobin Sodium Potassium Chloride Carbon Dioxide BUN Creatinine Glucose POC Glucose 209 H 208 H Lactic Acid Calcium Magnesium Ferritin Total Bilirubin Direct Bilirubin AST ALT Alkaline Phosphatase Lactate Dehydrogenase C-Reactive Protein Total Protein Albumin Triglycerides Lipase Arterial Blood Glucose 238 H Arterial Blood Ionized Calcium Urine WBC (Auto) Coronavirus (PCR) SARS-CoV-2 IgG Ab Crossmatch 07/01/20 07/01/20 07/01/20 06:16 06:41 06:41 WBC 18.1 H RBC 2.33 L Hgb 7.1 L Hct 21.3 L D MCV MCH MCHC RDW Lymph % (Auto) [place] % (Auto) Lymph # (Auto) [place] # (Auto) Baso # (Auto) Seg Neutrophils % Seg Neuts % (Manual) 82.0 H Lymphocytes % (Manual) 7.0 L Nucleated RBC % 1.0 H Seg Neutrophils # Seg Neutrophils # Man 14.8 H Lymphocytes # (Manual) Monocytes # (Manual) 1.1 H Eosinophils # (Manual) 0.5 H PT INR APTT D-Dimer Heparin Anti-Xa Level < 0.10 L ABG pH POC ABG pCO2 POC ABG pO2 ABG pO2 ABG HCO3 ABG O2 Saturation ABG Base Excess ABG Hemoglobin ABG Oxyhemoglobin ABG Sodium ABG Potassium ABG Chloride ABG Glucose Oxyhemoglobin Carboxyhemoglobin Sodium Potassium Chloride Carbon Dioxide BUN Creatinine Glucose POC Glucose 180 H Lactic Acid Calcium Magnesium Ferritin Total Bilirubin Direct Bilirubin AST ALT Alkaline Phosphatase Lactate Dehydrogenase C-Reactive Protein Total Protein Albumin Triglycerides Lipase Arterial Blood Glucose Arterial Blood Ionized Calcium Urine WBC (Auto) Coronavirus (PCR) SARS-CoV-2 IgG Ab Crossmatch 07/01/20 07/01/20 07/01/20 08:11 12:04 16:16 WBC RBC Hgb Hct MCV MCH MCHC RDW Lymph % (Auto) [place] % (Auto) Lymph # (Auto) [place] # (Auto) Baso # (Auto) Seg Neutrophils % Seg Neuts % (Manual) Lymphocytes % (Manual) Nucleated RBC % Seg Neutrophils # Seg Neutrophils # Man Lymphocytes # (Manual) Monocytes # (Manual) Eosinophils # (Manual) PT INR APTT D-Dimer Heparin Anti-Xa Level 1.02 H ABG pH POC ABG pCO2 POC ABG pO2 ABG pO2 ABG HCO3 ABG O2 Saturation ABG Base Excess ABG Hemoglobin ABG Oxyhemoglobin ABG Sodium ABG Potassium ABG Chloride ABG Glucose Oxyhemoglobin Carboxyhemoglobin Sodium 135 L Potassium 3.0 L Chloride 93.1 L Carbon Dioxide 40 H BUN Creatinine 0.3 L Glucose 140 H POC Glucose 223 H Lactic Acid Calcium Magnesium Ferritin Total Bilirubin Direct Bilirubin AST ALT Alkaline Phosphatase Lactate Dehydrogenase C-Reactive Protein Total Protein Albumin Triglycerides Lipase Arterial Blood Glucose Arterial Blood Ionized Calcium Urine WBC (Auto) Coronavirus (PCR) SARS-CoV-2 IgG Ab Crossmatch 07/01/20 07/01/20 07/02/20 17:09 23:19 00:56 WBC RBC Hgb Hct MCV MCH MCHC RDW Lymph % (Auto) [place] % (Auto) Lymph # (Auto) [place] # (Auto) Baso # (Auto) Seg Neutrophils % Seg Neuts % (Manual) Lymphocytes % (Manual) Nucleated RBC % Seg Neutrophils # Seg Neutrophils # Man Lymphocytes # (Manual) Monocytes # (Manual) Eosinophils # (Manual) PT INR APTT D-Dimer Heparin Anti-Xa Level 0.22 L ABG pH POC ABG pCO2 POC ABG pO2 ABG pO2 ABG HCO3 ABG O2 Saturation ABG Base Excess ABG Hemoglobin ABG Oxyhemoglobin ABG Sodium ABG Potassium ABG Chloride ABG Glucose Oxyhemoglobin Carboxyhemoglobin Sodium Potassium Chloride Carbon Dioxide BUN Creatinine Glucose POC Glucose 233 H 255 H Lactic Acid Calcium Magnesium Ferritin Total Bilirubin Direct Bilirubin AST ALT Alkaline Phosphatase Lactate Dehydrogenase C-Reactive Protein Total Protein Albumin Triglycerides Lipase Arterial Blood Glucose Arterial Blood Ionized Calcium Urine WBC (Auto) Coronavirus (PCR) SARS-CoV-2 IgG Ab Crossmatch 07/02/20 07/02/20 07/02/20 03:51 05:35 11:39 WBC RBC Hgb Hct MCV MCH MCHC RDW Lymph % (Auto) [place] % (Auto) Lymph # (Auto) [place] # (Auto) Baso # (Auto) Seg Neutrophils % Seg Neuts % (Manual) Lymphocytes % (Manual) Nucleated RBC % Seg Neutrophils # Seg Neutrophils # Man Lymphocytes # (Manual) Monocytes # (Manual) Eosinophils # (Manual) PT INR APTT D-Dimer Heparin Anti-Xa Level ABG pH POC ABG pCO2 54.9 H POC ABG pO2 52.1 L ABG pO2 ABG HCO3 ABG O2 Saturation ABG Base Excess ABG Hemoglobin 11.9 L ABG Oxyhemoglobin 82.8 L ABG Sodium 130.2 L ABG Potassium ABG Chloride 92.0 L ABG Glucose 249 H Oxyhemoglobin Carboxyhemoglobin 1.9 H Sodium Potassium Chloride Carbon Dioxide BUN Creatinine Glucose POC Glucose 205 H 235 H Lactic Acid Calcium Magnesium Ferritin Total Bilirubin Direct Bilirubin AST ALT Alkaline Phosphatase Lactate Dehydrogenase C-Reactive Protein Total Protein Albumin Triglycerides Lipase Arterial Blood Glucose 249 H Arterial Blood Ionized Calcium Urine WBC (Auto) Coronavirus (PCR) SARS-CoV-2 IgG Ab Crossmatch 07/02/20 07/02/20 07/02/20 16:08 16:08 17:54 WBC 19.8 H RBC 3.28 L Hgb 10.7 L D Hct 32.7 L D MCV 100 H MCH 33 H MCHC RDW 17.2 H Lymph % (Auto) [place] % (Auto) Lymph # (Auto) [place] # (Auto) Baso # (Auto) Seg Neutrophils % Seg Neuts % (Manual) Lymphocytes % (Manual) Nucleated RBC % Seg Neutrophils # Seg Neutrophils # Man Lymphocytes # (Manual) Monocytes # (Manual) Eosinophils # (Manual) PT INR APTT D-Dimer Heparin Anti-Xa Level ABG pH POC ABG pCO2 POC ABG pO2 ABG pO2 ABG HCO3 ABG O2 Saturation ABG Base Excess ABG Hemoglobin ABG Oxyhemoglobin ABG Sodium ABG Potassium ABG Chloride ABG Glucose Oxyhemoglobin Carboxyhemoglobin Sodium 136 L Potassium Chloride 92.4 L Carbon Dioxide 35 H BUN Creatinine 0.3 L Glucose 203 H POC Glucose 175 H Lactic Acid Calcium Magnesium Ferritin Total Bilirubin Direct Bilirubin AST ALT Alkaline Phosphatase Lactate Dehydrogenase C-Reactive Protein Total Protein Albumin Triglycerides Lipase Arterial Blood Glucose Arterial Blood Ionized Calcium Urine WBC (Auto) Coronavirus (PCR) SARS-CoV-2 IgG Ab Crossmatch 07/02/20 07/03/20 07/03/20 23:46 03:25 05:54 WBC RBC Hgb Hct MCV MCH MCHC RDW Lymph % (Auto) [place] % (Auto) Lymph # (Auto) [place] # (Auto) Baso # (Auto) Seg Neutrophils % Seg Neuts % (Manual) Lymphocytes % (Manual) Nucleated RBC % Seg Neutrophils # Seg Neutrophils # Man Lymphocytes # (Manual) Monocytes # (Manual) Eosinophils # (Manual) PT INR APTT D-Dimer Heparin Anti-Xa Level ABG pH 7.468 H POC ABG pCO2 51.5 H POC ABG pO2 ABG pO2 ABG HCO3 ABG O2 Saturation ABG Base Excess ABG Hemoglobin ABG Oxyhemoglobin ABG Sodium 130.2 L ABG Potassium ABG Chloride 91.0 L ABG Glucose 210 H Oxyhemoglobin Carboxyhemoglobin 1.6 H Sodium Potassium Chloride Carbon Dioxide BUN Creatinine Glucose POC Glucose 173 H 125 H Lactic Acid Calcium Magnesium Ferritin Total Bilirubin Direct Bilirubin AST ALT Alkaline Phosphatase Lactate Dehydrogenase C-Reactive Protein Total Protein Albumin Triglycerides Lipase Arterial Blood Glucose 210 H Arterial Blood Ionized Calcium Urine WBC (Auto) Coronavirus (PCR) SARS-CoV-2 IgG Ab Crossmatch 07/03/20 07/03/20 07/03/20 11:43 12:20 12:20 WBC 16.5 H RBC 3.13 L Hgb 10.4 L Hct 31.8 L MCV 102 H MCH 33 H MCHC RDW 17.2 H Lymph % (Auto) [place] % (Auto) Lymph # (Auto) [place] # (Auto) Baso # (Auto) Seg Neutrophils % Seg Neuts % (Manual) Lymphocytes % (Manual) Nucleated RBC % Seg Neutrophils # Seg Neutrophils # Man Lymphocytes # (Manual) Monocytes # (Manual) Eosinophils # (Manual) PT INR APTT D-Dimer Heparin Anti-Xa Level ABG pH POC ABG pCO2 POC ABG pO2 ABG pO2 ABG HCO3 ABG O2 Saturation ABG Base Excess ABG Hemoglobin ABG Oxyhemoglobin ABG Sodium ABG Potassium ABG Chloride ABG Glucose Oxyhemoglobin Carboxyhemoglobin Sodium 132 L Potassium Chloride 88.5 L Carbon Dioxide 37 H BUN Creatinine 0.3 L Glucose 230 H POC Glucose 223 H Lactic Acid Calcium Magnesium Ferritin Total Bilirubin Direct Bilirubin AST ALT Alkaline Phosphatase Lactate Dehydrogenase C-Reactive Protein Total Protein Albumin Triglycerides Lipase Arterial Blood Glucose Arterial Blood Ionized Calcium Urine WBC (Auto) Coronavirus (PCR) SARS-CoV-2 IgG Ab Crossmatch 07/03/20 07/03/20 07/04/20 17:24 21:41 00:54 WBC RBC Hgb Hct MCV MCH MCHC RDW Lymph % (Auto) [place] % (Auto) Lymph # (Auto) [place] # (Auto) Baso # (Auto) Seg Neutrophils % Seg Neuts % (Manual) Lymphocytes % (Manual) Nucleated RBC % Seg Neutrophils # Seg Neutrophils # Man Lymphocytes # (Manual) Monocytes # (Manual) Eosinophils # (Manual) PT INR APTT D-Dimer Heparin Anti-Xa Level ABG pH POC ABG pCO2 POC ABG pO2 ABG pO2 ABG HCO3 ABG O2 Saturation ABG Base Excess ABG Hemoglobin ABG Oxyhemoglobin ABG Sodium ABG Potassium ABG Chloride ABG Glucose Oxyhemoglobin Carboxyhemoglobin Sodium Potassium Chloride Carbon Dioxide BUN Creatinine Glucose POC Glucose 163 H 220 H 195 H Lactic Acid Calcium Magnesium Ferritin Total Bilirubin Direct Bilirubin AST ALT Alkaline Phosphatase Lactate Dehydrogenase C-Reactive Protein Total Protein Albumin Triglycerides Lipase Arterial Blood Glucose Arterial Blood Ionized Calcium Urine WBC (Auto) Coronavirus (PCR) SARS-CoV-2 IgG Ab Crossmatch 07/04/20 07/04/20 07/04/20 03:25 04:00 04:00 WBC 14.9 H RBC 2.91 L Hgb 9.5 L Hct 29.2 L MCV 100 H MCH 33 H MCHC RDW 16.7 H Lymph % (Auto) 8.4 L [place] % (Auto) Lymph # (Auto) [place] # (Auto) 1.1 H Baso # (Auto) Seg Neutrophils % 84.2 H Seg Neuts % (Manual) Lymphocytes % (Manual) Nucleated RBC % Seg Neutrophils # 12.6 H Seg Neutrophils # Man Lymphocytes # (Manual) Monocytes # (Manual) Eosinophils # (Manual) PT INR APTT D-Dimer Heparin Anti-Xa Level ABG pH 7.474 H POC ABG pCO2 POC ABG pO2 51.8 L ABG pO2 ABG HCO3 ABG O2 Saturation ABG Base Excess ABG Hemoglobin ABG Oxyhemoglobin ABG Sodium ABG Potassium ABG Chloride ABG Glucose Oxyhemoglobin Carboxyhemoglobin Sodium Potassium 3.4 L Chloride 92.1 L Carbon Dioxide 34 H BUN Creatinine 0.3 L Glucose 173 H POC Glucose Lactic Acid Calcium Magnesium Ferritin Total Bilirubin Direct Bilirubin AST ALT Alkaline Phosphatase Lactate Dehydrogenase C-Reactive Protein Total Protein Albumin Triglycerides Lipase Arterial Blood Glucose Arterial Blood Ionized Calcium Urine WBC (Auto) Coronavirus (PCR) SARS-CoV-2 IgG Ab Crossmatch 07/04/20 07/04/20 07/04/20 06:18 11:39 17:18 WBC RBC Hgb Hct MCV MCH MCHC RDW Lymph % (Auto) [place] % (Auto) Lymph # (Auto) [place] # (Auto) Baso # (Auto) Seg Neutrophils % Seg Neuts % (Manual) Lymphocytes % (Manual) Nucleated RBC % Seg Neutrophils # Seg Neutrophils # Man Lymphocytes # (Manual) Monocytes # (Manual) Eosinophils # (Manual) PT INR APTT D-Dimer Heparin Anti-Xa Level ABG pH POC ABG pCO2 POC ABG pO2 ABG pO2 ABG HCO3 ABG O2 Saturation ABG Base Excess ABG Hemoglobin ABG Oxyhemoglobin ABG Sodium ABG Potassium ABG Chloride ABG Glucose Oxyhemoglobin Carboxyhemoglobin Sodium Potassium Chloride Carbon Dioxide BUN Creatinine Glucose POC Glucose 158 H 257 H 148 H Lactic Acid Calcium Magnesium Ferritin Total Bilirubin Direct Bilirubin AST ALT Alkaline Phosphatase Lactate Dehydrogenase C-Reactive Protein Total Protein Albumin Triglycerides Lipase Arterial Blood Glucose Arterial Blood Ionized Calcium Urine WBC (Auto) Coronavirus (PCR) SARS-CoV-2 IgG Ab Crossmatch 07/04/20 07/05/20 07/05/20 23:23 03:13 05:18 WBC 13.3 H RBC 2.90 L Hgb 9.8 L Hct 29.3 L MCV 101 H MCH 34 H MCHC RDW 17.0 H Lymph % (Auto) 11.1 L [place] % (Auto) Lymph # (Auto) [place] # (Auto) Baso # (Auto) Seg Neutrophils % 82.3 H Seg Neuts % (Manual) Lymphocytes % (Manual) Nucleated RBC % Seg Neutrophils # 10.9 H Seg Neutrophils # Man Lymphocytes # (Manual) Monocytes # (Manual) Eosinophils # (Manual) PT INR APTT D-Dimer Heparin Anti-Xa Level ABG pH 7.48 H POC ABG pCO2 52.0 H POC ABG pO2 ABG pO2 ABG HCO3 ABG O2 Saturation ABG Base Excess ABG Hemoglobin 10.0 L ABG Oxyhemoglobin ABG Sodium 131.0 L ABG Potassium 3.3 L ABG Chloride 93.0 L ABG Glucose 177 H Oxyhemoglobin Carboxyhemoglobin Sodium Potassium Chloride Carbon Dioxide BUN Creatinine Glucose POC Glucose 227 H Lactic Acid Calcium Magnesium Ferritin Total Bilirubin Direct Bilirubin AST ALT Alkaline Phosphatase Lactate Dehydrogenase C-Reactive Protein Total Protein Albumin Triglycerides Lipase Arterial Blood Glucose 177 H Arterial Blood Ionized Calcium Urine WBC (Auto) Coronavirus (PCR) SARS-CoV-2 IgG Ab Crossmatch 07/05/20 07/05/20 07/05/20 05:18 05:25 05:57 WBC RBC Hgb Hct MCV MCH MCHC RDW Lymph % (Auto) [place] % (Auto) Lymph # (Auto) [place] # (Auto) Baso # (Auto) Seg Neutrophils % Seg Neuts % (Manual) Lymphocytes % (Manual) Nucleated RBC % Seg Neutrophils # Seg Neutrophils # Man Lymphocytes # (Manual) Monocytes # (Manual) Eosinophils # (Manual) PT INR APTT D-Dimer Heparin Anti-Xa Level ABG pH 7.519 H POC ABG pCO2 POC ABG pO2 198.6 H ABG pO2 ABG HCO3 ABG O2 Saturation ABG Base Excess ABG Hemoglobin 10.3 L ABG Oxyhemoglobin 98.7 H ABG Sodium 133.6 L ABG Potassium 3.3 L ABG Chloride 93.0 L ABG Glucose 175 H Oxyhemoglobin Carboxyhemoglobin Sodium Potassium 3.4 L Chloride 92.5 L Carbon Dioxide 36 H BUN Creatinine 0.3 L Glucose 148 H POC Glucose 170 H Lactic Acid Calcium Magnesium Ferritin Total Bilirubin Direct Bilirubin AST ALT Alkaline Phosphatase Lactate Dehydrogenase C-Reactive Protein Total Protein Albumin Triglycerides Lipase Arterial Blood Glucose 175 H Arterial Blood Ionized Calcium Urine WBC (Auto) Coronavirus (PCR) SARS-CoV-2 IgG Ab Crossmatch 07/05/20 07/05/20 07/06/20 11:37 18:39 00:04 WBC RBC Hgb Hct MCV MCH MCHC RDW Lymph % (Auto) [place] % (Auto) Lymph # (Auto) [place] # (Auto) Baso # (Auto) Seg Neutrophils % Seg Neuts % (Manual) Lymphocytes % (Manual) Nucleated RBC % Seg Neutrophils # Seg Neutrophils # Man Lymphocytes # (Manual) Monocytes # (Manual) Eosinophils # (Manual) PT INR APTT D-Dimer Heparin Anti-Xa Level ABG pH POC ABG pCO2 POC ABG pO2 ABG pO2 ABG HCO3 ABG O2 Saturation ABG Base Excess ABG Hemoglobin ABG Oxyhemoglobin ABG Sodium ABG Potassium ABG Chloride ABG Glucose Oxyhemoglobin Carboxyhemoglobin Sodium Potassium Chloride Carbon Dioxide BUN Creatinine Glucose POC Glucose 195 H 200 H 222 H Lactic Acid Calcium Magnesium Ferritin Total Bilirubin Direct Bilirubin AST ALT Alkaline Phosphatase Lactate Dehydrogenase C-Reactive Protein Total Protein Albumin Triglycerides Lipase Arterial Blood Glucose Arterial Blood Ionized Calcium Urine WBC (Auto) Coronavirus (PCR) SARS-CoV-2 IgG Ab Crossmatch 07/06/20 07/06/20 07/06/20 05:25 06:52 06:52 WBC 15.8 H RBC 3.17 L Hgb 10.4 L Hct 31.5 L MCV 99 H MCH 33 H MCHC RDW 17.0 H Lymph % (Auto) [place] % (Auto) Lymph # (Auto) [place] # (Auto) Baso # (Auto) Seg Neutrophils % Seg Neuts % (Manual) Lymphocytes % (Manual) Nucleated RBC % Seg Neutrophils # Seg Neutrophils # Man Lymphocytes # (Manual) Monocytes # (Manual) Eosinophils # (Manual) PT INR APTT D-Dimer Heparin Anti-Xa Level ABG pH POC ABG pCO2 POC ABG pO2 ABG pO2 ABG HCO3 ABG O2 Saturation ABG Base Excess ABG Hemoglobin ABG Oxyhemoglobin ABG Sodium ABG Potassium ABG Chloride ABG Glucose Oxyhemoglobin Carboxyhemoglobin Sodium 135 L Potassium 3.4 L Chloride 91.9 L Carbon Dioxide 38 H BUN Creatinine 0.3 L Glucose 189 H POC Glucose 165 H Lactic Acid Calcium Magnesium Ferritin Total Bilirubin Direct Bilirubin AST ALT Alkaline Phosphatase Lactate Dehydrogenase C-Reactive Protein Total Protein Albumin Triglycerides Lipase Arterial Blood Glucose Arterial Blood Ionized Calcium Urine WBC (Auto) Coronavirus (PCR) SARS-CoV-2 IgG Ab Crossmatch 07/06/20 07/06/20 07/06/20 13:01 18:04 23:08 WBC RBC Hgb Hct MCV MCH MCHC RDW Lymph % (Auto) [place] % (Auto) Lymph # (Auto) [place] # (Auto) Baso # (Auto) Seg Neutrophils % Seg Neuts % (Manual) Lymphocytes % (Manual) Nucleated RBC % Seg Neutrophils # Seg Neutrophils # Man Lymphocytes # (Manual) Monocytes # (Manual) Eosinophils # (Manual) PT INR APTT D-Dimer Heparin Anti-Xa Level ABG pH POC ABG pCO2 POC ABG pO2 ABG pO2 ABG HCO3 ABG O2 Saturation ABG Base Excess ABG Hemoglobin ABG Oxyhemoglobin ABG Sodium ABG Potassium ABG Chloride ABG Glucose Oxyhemoglobin Carboxyhemoglobin Sodium Potassium Chloride Carbon Dioxide BUN Creatinine Glucose POC Glucose 195 H 169 H 173 H Lactic Acid Calcium Magnesium Ferritin Total Bilirubin Direct Bilirubin AST ALT Alkaline Phosphatase Lactate Dehydrogenase C-Reactive Protein Total Protein Albumin Triglycerides Lipase Arterial Blood Glucose Arterial Blood Ionized Calcium Urine WBC (Auto) Coronavirus (PCR) SARS-CoV-2 IgG Ab Crossmatch 07/07/20 07/07/20 07/07/20 05:35 05:35 05:39 WBC 17.6 H RBC 3.16 L Hgb 10.4 L Hct 31.5 L MCV 100 H MCH 33 H MCHC RDW 16.7 H Lymph % (Auto) 11.1 L [place] % (Auto) Lymph # (Auto) [place] # (Auto) 1.0 H Baso # (Auto) Seg Neutrophils % 83.0 H Seg Neuts % (Manual) Lymphocytes % (Manual) Nucleated RBC % Seg Neutrophils # 14.6 H Seg Neutrophils # Man Lymphocytes # (Manual) Monocytes # (Manual) Eosinophils # (Manual) PT INR APTT D-Dimer Heparin Anti-Xa Level ABG pH POC ABG pCO2 POC ABG pO2 ABG pO2 ABG HCO3 ABG O2 Saturation ABG Base Excess ABG Hemoglobin ABG Oxyhemoglobin ABG Sodium ABG Potassium ABG Chloride ABG Glucose Oxyhemoglobin Carboxyhemoglobin Sodium 135 L Potassium 3.4 L Chloride 94.3 L Carbon Dioxide 32 H BUN Creatinine 0.2 L Glucose 240 H POC Glucose 191 H Lactic Acid Calcium Magnesium Ferritin Total Bilirubin Direct Bilirubin AST ALT Alkaline Phosphatase Lactate Dehydrogenase C-Reactive Protein Total Protein Albumin Triglycerides Lipase Arterial Blood Glucose Arterial Blood Ionized Calcium Urine WBC (Auto) Coronavirus (PCR) SARS-CoV-2 IgG Ab Crossmatch 07/07/20 07/07/20 07/07/20 12:08 16:39 23:41 WBC RBC Hgb Hct MCV MCH MCHC RDW Lymph % (Auto) [place] % (Auto) Lymph # (Auto) [place] # (Auto) Baso # (Auto) Seg Neutrophils % Seg Neuts % (Manual) Lymphocytes % (Manual) Nucleated RBC % Seg Neutrophils # Seg Neutrophils # Man Lymphocytes # (Manual) Monocytes # (Manual) Eosinophils # (Manual) PT INR APTT D-Dimer Heparin Anti-Xa Level ABG pH POC ABG pCO2 POC ABG pO2 ABG pO2 ABG HCO3 ABG O2 Saturation ABG Base Excess ABG Hemoglobin ABG Oxyhemoglobin ABG Sodium ABG Potassium ABG Chloride ABG Glucose Oxyhemoglobin Carboxyhemoglobin Sodium Potassium Chloride Carbon Dioxide BUN Creatinine Glucose POC Glucose 248 H 209 H 231 H Lactic Acid Calcium Magnesium Ferritin Total Bilirubin Direct Bilirubin AST ALT Alkaline Phosphatase Lactate Dehydrogenase C-Reactive Protein Total Protein Albumin Triglycerides Lipase Arterial Blood Glucose Arterial Blood Ionized Calcium Urine WBC (Auto) Coronavirus (PCR) SARS-CoV-2 IgG Ab Crossmatch 07/08/20 07/08/20 07/08/20 04:58 04:58 05:38 WBC 21.0 H RBC 2.86 L Hgb 9.2 L Hct 28.6 L MCV 100 H MCH MCHC RDW 16.7 H Lymph % (Auto) [place] % (Auto) Lymph # (Auto) [place] # (Auto) Baso # (Auto) Seg Neutrophils % Seg Neuts % (Manual) 93.0 H Lymphocytes % (Manual) 3.0 L Nucleated RBC % Seg Neutrophils # Seg Neutrophils # Man 19.5 H Lymphocytes # (Manual) 0.6 L Monocytes # (Manual) Eosinophils # (Manual) PT INR APTT D-Dimer Heparin Anti-Xa Level ABG pH POC ABG pCO2 POC ABG pO2 ABG pO2 ABG HCO3 ABG O2 Saturation ABG Base Excess ABG Hemoglobin ABG Oxyhemoglobin ABG Sodium ABG Potassium ABG Chloride ABG Glucose Oxyhemoglobin Carboxyhemoglobin Sodium Potassium 3.0 L Chloride Carbon Dioxide BUN Creatinine 0.2 L Glucose 201 H POC Glucose 161 H Lactic Acid Calcium 7.9 L D Magnesium Ferritin Total Bilirubin Direct Bilirubin AST ALT Alkaline Phosphatase Lactate Dehydrogenase C-Reactive Protein Total Protein Albumin Triglycerides Lipase Arterial Blood Glucose Arterial Blood Ionized Calcium Urine WBC (Auto) Coronavirus (PCR) SARS-CoV-2 IgG Ab Crossmatch 07/08/20 07/08/20 07/08/20 12:19 16:26 Unknown WBC RBC Hgb Hct MCV MCH MCHC RDW Lymph % (Auto) [place] % (Auto) Lymph # (Auto) [place] # (Auto) Baso # (Auto) Seg Neutrophils % Seg Neuts % (Manual) Lymphocytes % (Manual) Nucleated RBC % Seg Neutrophils # Seg Neutrophils # Man Lymphocytes # (Manual) Monocytes # (Manual) Eosinophils # (Manual) PT INR APTT D-Dimer Heparin Anti-Xa Level ABG pH POC ABG pCO2 POC ABG pO2 ABG pO2 75.3 L ABG HCO3 34.3 H ABG O2 Saturation ABG Base Excess 8.7 H ABG Hemoglobin 10.2 L ABG Oxyhemoglobin ABG Sodium ABG Potassium ABG Chloride ABG Glucose Oxyhemoglobin 93.7 L Carboxyhemoglobin Sodium Potassium Chloride Carbon Dioxide BUN Creatinine Glucose POC Glucose 152 H 173 H Lactic Acid Calcium Magnesium Ferritin Total Bilirubin Direct Bilirubin AST ALT Alkaline Phosphatase Lactate Dehydrogenase C-Reactive Protein Total Protein Albumin Triglycerides Lipase Arterial Blood Glucose Arterial Blood Ionized Calcium Urine WBC (Auto) Coronavirus (PCR) SARS-CoV-2 IgG Ab Crossmatch 07/09/20 07/09/20 07/09/20 00:01 06:00 11:55 WBC RBC Hgb Hct MCV MCH MCHC RDW Lymph % (Auto) [place] % (Auto) Lymph # (Auto) [place] # (Auto) Baso # (Auto) Seg Neutrophils % Seg Neuts % (Manual) Lymphocytes % (Manual) Nucleated RBC % Seg Neutrophils # Seg Neutrophils # Man Lymphocytes # (Manual) Monocytes # (Manual) Eosinophils # (Manual) PT INR APTT D-Dimer Heparin Anti-Xa Level ABG pH POC ABG pCO2 POC ABG pO2 ABG pO2 ABG HCO3 ABG O2 Saturation ABG Base Excess ABG Hemoglobin ABG Oxyhemoglobin ABG Sodium ABG Potassium ABG Chloride ABG Glucose Oxyhemoglobin Carboxyhemoglobin Sodium Potassium Chloride Carbon Dioxide BUN Creatinine Glucose POC Glucose 207 H 141 H 228 H Lactic Acid Calcium Magnesium Ferritin Total Bilirubin Direct Bilirubin AST ALT Alkaline Phosphatase Lactate Dehydrogenase C-Reactive Protein Total Protein Albumin Triglycerides Lipase Arterial Blood Glucose Arterial Blood Ionized Calcium Urine WBC (Auto) Coronavirus (PCR) SARS-CoV-2 IgG Ab Crossmatch 07/09/20 07/09/20 07/09/20 16:47 23:53 Unknown WBC RBC Hgb Hct MCV MCH MCHC RDW Lymph % (Auto) [place] % (Auto) Lymph # (Auto) [place] # (Auto) Baso # (Auto) Seg Neutrophils % Seg Neuts % (Manual) Lymphocytes % (Manual) Nucleated RBC % Seg Neutrophils # Seg Neutrophils # Man Lymphocytes # (Manual) Monocytes # (Manual) Eosinophils # (Manual) PT INR APTT D-Dimer Heparin Anti-Xa Level ABG pH POC ABG pCO2 POC ABG pO2 ABG pO2 ABG HCO3 ABG O2 Saturation ABG Base Excess ABG Hemoglobin ABG Oxyhemoglobin ABG Sodium ABG Potassium ABG Chloride ABG Glucose Oxyhemoglobin Carboxyhemoglobin Sodium 132 L Potassium Chloride 92.7 L Carbon Dioxide 35 H BUN Creatinine 0.2 L Glucose 234 H POC Glucose 136 H 219 H Lactic Acid Calcium Magnesium Ferritin Total Bilirubin Direct Bilirubin AST ALT Alkaline Phosphatase Lactate Dehydrogenase C-Reactive Protein Total Protein Albumin Triglycerides Lipase Arterial Blood Glucose Arterial Blood Ionized Calcium Urine WBC (Auto) Coronavirus (PCR) SARS-CoV-2 IgG Ab Crossmatch 07/10/20 07/10/20 07/10/20 05:20 12:05 18:38 WBC RBC Hgb Hct MCV MCH MCHC RDW Lymph % (Auto) [place] % (Auto) Lymph # (Auto) [place] # (Auto) Baso # (Auto) Seg Neutrophils % Seg Neuts % (Manual) Lymphocytes % (Manual) Nucleated RBC % Seg Neutrophils # Seg Neutrophils # Man Lymphocytes # (Manual) Monocytes # (Manual) Eosinophils # (Manual) PT INR APTT D-Dimer Heparin Anti-Xa Level ABG pH POC ABG pCO2 POC ABG pO2 ABG pO2 ABG HCO3 ABG O2 Saturation ABG Base Excess ABG Hemoglobin ABG Oxyhemoglobin ABG Sodium ABG Potassium ABG Chloride ABG Glucose Oxyhemoglobin Carboxyhemoglobin Sodium Potassium Chloride Carbon Dioxide BUN Creatinine Glucose POC Glucose 221 H 174 H 152 H Lactic Acid Calcium Magnesium Ferritin Total Bilirubin Direct Bilirubin AST ALT Alkaline Phosphatase Lactate Dehydrogenase C-Reactive Protein Total Protein Albumin Triglycerides Lipase Arterial Blood Glucose Arterial Blood Ionized Calcium Urine WBC (Auto) Coronavirus (PCR) SARS-CoV-2 IgG Ab Crossmatch 07/11/20 07/11/20 07/11/20 00:16 05:42 08:13 WBC 11.9 H RBC 3.13 L Hgb 10.2 L Hct 31.2 L MCV 100 H MCH 33 H MCHC RDW 16.4 H Lymph % (Auto) [place] % (Auto) 9.3 H Lymph # (Auto) [place] # (Auto) 1.1 H Baso # (Auto) Seg Neutrophils % 72.7 H Seg Neuts % (Manual) Lymphocytes % (Manual) Nucleated RBC % Seg Neutrophils # 8.7 H Seg Neutrophils # Man Lymphocytes # (Manual) Monocytes # (Manual) Eosinophils # (Manual) PT INR APTT D-Dimer Heparin Anti-Xa Level ABG pH POC ABG pCO2 POC ABG pO2 ABG pO2 ABG HCO3 ABG O2 Saturation ABG Base Excess ABG Hemoglobin ABG Oxyhemoglobin ABG Sodium ABG Potassium ABG Chloride ABG Glucose Oxyhemoglobin Carboxyhemoglobin Sodium Potassium Chloride Carbon Dioxide BUN Creatinine Glucose POC Glucose 170 H 186 H Lactic Acid Calcium Magnesium Ferritin Total Bilirubin Direct Bilirubin AST ALT Alkaline Phosphatase Lactate Dehydrogenase C-Reactive Protein Total Protein Albumin Triglycerides Lipase Arterial Blood Glucose Arterial Blood Ionized Calcium Urine WBC (Auto) Coronavirus (PCR) SARS-CoV-2 IgG Ab Crossmatch 07/11/20 07/11/20 07/11/20 08:13 11:35 18:07 WBC RBC Hgb Hct MCV MCH MCHC RDW Lymph % (Auto) [place] % (Auto) Lymph # (Auto) [place] # (Auto) Baso # (Auto) Seg Neutrophils % Seg Neuts % (Manual) Lymphocytes % (Manual) Nucleated RBC % Seg Neutrophils # Seg Neutrophils # Man Lymphocytes # (Manual) Monocytes # (Manual) Eosinophils # (Manual) PT INR APTT D-Dimer Heparin Anti-Xa Level ABG pH POC ABG pCO2 POC ABG pO2 ABG pO2 ABG HCO3 ABG O2 Saturation ABG Base Excess ABG Hemoglobin ABG Oxyhemoglobin ABG Sodium ABG Potassium ABG Chloride ABG Glucose Oxyhemoglobin Carboxyhemoglobin Sodium 135 L Potassium Chloride 92.8 L Carbon Dioxide 38 H BUN Creatinine 0.2 L Glucose 132 H POC Glucose 129 H 156 H Lactic Acid Calcium Magnesium Ferritin Total Bilirubin Direct Bilirubin AST ALT Alkaline Phosphatase Lactate Dehydrogenase C-Reactive Protein Total Protein Albumin Triglycerides Lipase Arterial Blood Glucose Arterial Blood Ionized Calcium Urine WBC (Auto) Coronavirus (PCR) SARS-CoV-2 IgG Ab Crossmatch 07/11/20 07/11/20 07/12/20 18:36 23:18 05:28 WBC RBC Hgb Hct MCV MCH MCHC RDW Lymph % (Auto) [place] % (Auto) Lymph # (Auto) [place] # (Auto) Baso # (Auto) Seg Neutrophils % Seg Neuts % (Manual) Lymphocytes % (Manual) Nucleated RBC % Seg Neutrophils # Seg Neutrophils # Man Lymphocytes # (Manual) Monocytes # (Manual) Eosinophils # (Manual) PT INR APTT D-Dimer Heparin Anti-Xa Level ABG pH POC ABG pCO2 POC ABG pO2 70.9 L ABG pO2 ABG HCO3 ABG O2 Saturation ABG Base Excess ABG Hemoglobin 10.8 L ABG Oxyhemoglobin 92.5 L ABG Sodium 131.8 L ABG Potassium 3.2 L ABG Chloride 91.0 L ABG Glucose 181 H Oxyhemoglobin Carboxyhemoglobin Sodium Potassium Chloride Carbon Dioxide BUN Creatinine Glucose POC Glucose 189 H 190 H Lactic Acid Calcium Magnesium Ferritin Total Bilirubin Direct Bilirubin AST ALT Alkaline Phosphatase Lactate Dehydrogenase C-Reactive Protein Total Protein Albumin Triglycerides Lipase Arterial Blood Glucose 181 H Arterial Blood Ionized Calcium Urine WBC (Auto) Coronavirus (PCR) SARS-CoV-2 IgG Ab Crossmatch 07/12/20 07/12/20 07/12/20 11:33 17:45 23:59 WBC RBC Hgb Hct MCV MCH MCHC RDW Lymph % (Auto) [place] % (Auto) Lymph # (Auto) [place] # (Auto) Baso # (Auto) Seg Neutrophils % Seg Neuts % (Manual) Lymphocytes % (Manual) Nucleated RBC % Seg Neutrophils # Seg Neutrophils # Man Lymphocytes # (Manual) Monocytes # (Manual) Eosinophils # (Manual) PT INR APTT D-Dimer Heparin Anti-Xa Level ABG pH POC ABG pCO2 POC ABG pO2 ABG pO2 ABG HCO3 ABG O2 Saturation ABG Base Excess ABG Hemoglobin ABG Oxyhemoglobin ABG Sodium ABG Potassium ABG Chloride ABG Glucose Oxyhemoglobin Carboxyhemoglobin Sodium Potassium Chloride Carbon Dioxide BUN Creatinine Glucose POC Glucose 151 H 211 H 169 H Lactic Acid Calcium Magnesium Ferritin Total Bilirubin Direct Bilirubin AST ALT Alkaline Phosphatase Lactate Dehydrogenase C-Reactive Protein Total Protein Albumin Triglycerides Lipase Arterial Blood Glucose Arterial Blood Ionized Calcium Urine WBC (Auto) Coronavirus (PCR) SARS-CoV-2 IgG Ab Crossmatch 07/13/20 07/13/20 07/13/20 05:44 08:31 08:31 WBC 21.3 H RBC 2.92 L Hgb 9.7 L Hct 28.7 L MCV 98 H MCH 33 H MCHC RDW 16.8 H Lymph % (Auto) [place] % (Auto) Lymph # (Auto) [place] # (Auto) Baso # (Auto) Seg Neutrophils % Seg Neuts % (Manual) 96.0 H Lymphocytes % (Manual) 2.0 L Nucleated RBC % Seg Neutrophils # Seg Neutrophils # Man 20.4 H Lymphocytes # (Manual) 0.4 L Monocytes # (Manual) Eosinophils # (Manual) PT INR APTT D-Dimer Heparin Anti-Xa Level ABG pH POC ABG pCO2 POC ABG pO2 ABG pO2 ABG HCO3 ABG O2 Saturation ABG Base Excess ABG Hemoglobin ABG Oxyhemoglobin ABG Sodium ABG Potassium ABG Chloride ABG Glucose Oxyhemoglobin Carboxyhemoglobin Sodium Potassium 2.9 L* D Chloride 94.4 L Carbon Dioxide 37 H BUN Creatinine 0.2 L Glucose 166 H POC Glucose 122 H Lactic Acid Calcium Magnesium Ferritin Total Bilirubin Direct Bilirubin AST ALT Alkaline Phosphatase Lactate Dehydrogenase C-Reactive Protein Total Protein Albumin Triglycerides Lipase Arterial Blood Glucose Arterial Blood Ionized Calcium Urine WBC (Auto) Coronavirus (PCR) SARS-CoV-2 IgG Ab Crossmatch 07/13/20 07/13/20 07/13/20 11:54 13:52 17:40 WBC RBC Hgb Hct MCV MCH MCHC RDW Lymph % (Auto) [place] % (Auto) Lymph # (Auto) [place] # (Auto) Baso # (Auto) Seg Neutrophils % Seg Neuts % (Manual) Lymphocytes % (Manual) Nucleated RBC % Seg Neutrophils # Seg Neutrophils # Man Lymphocytes # (Manual) Monocytes # (Manual) Eosinophils # (Manual) PT INR APTT D-Dimer Heparin Anti-Xa Level ABG pH 7.477 H POC ABG pCO2 54.4 H POC ABG pO2 126.8 H ABG pO2 ABG HCO3 ABG O2 Saturation ABG Base Excess ABG Hemoglobin 11.5 L ABG Oxyhemoglobin ABG Sodium ABG Potassium 3.2 L ABG Chloride 92.0 L ABG Glucose 169 H Oxyhemoglobin Carboxyhemoglobin Sodium Potassium Chloride Carbon Dioxide BUN Creatinine Glucose POC Glucose 132 H 128 H Lactic Acid Calcium Magnesium Ferritin Total Bilirubin Direct Bilirubin AST ALT Alkaline Phosphatase Lactate Dehydrogenase C-Reactive Protein Total Protein Albumin Triglycerides Lipase Arterial Blood Glucose 169 H Arterial Blood Ionized Calcium Urine WBC (Auto) Coronavirus (PCR) SARS-CoV-2 IgG Ab Crossmatch 07/14/20 07/14/20 07/15/20 07:49 17:09 05:27 WBC RBC Hgb Hct MCV MCH MCHC RDW Lymph % (Auto) [place] % (Auto) Lymph # (Auto) [place] # (Auto) Baso # (Auto) Seg Neutrophils % Seg Neuts % (Manual) Lymphocytes % (Manual) Nucleated RBC % Seg Neutrophils # Seg Neutrophils # Man Lymphocytes # (Manual) Monocytes # (Manual) Eosinophils # (Manual) PT INR APTT D-Dimer Heparin Anti-Xa Level ABG pH POC ABG pCO2 POC ABG pO2 ABG pO2 ABG HCO3 ABG O2 Saturation ABG Base Excess ABG Hemoglobin ABG Oxyhemoglobin ABG Sodium ABG Potassium ABG Chloride ABG Glucose Oxyhemoglobin Carboxyhemoglobin Sodium Potassium 2.7 L* Chloride 94.0 L Carbon Dioxide 37 H BUN Creatinine 0.3 L Glucose 110 H POC Glucose 152 H 61 L Lactic Acid Calcium Magnesium Ferritin Total Bilirubin Direct Bilirubin AST ALT Alkaline Phosphatase Lactate Dehydrogenase C-Reactive Protein Total Protein Albumin Triglycerides Lipase Arterial Blood Glucose Arterial Blood Ionized Calcium Urine WBC (Auto) Coronavirus (PCR) SARS-CoV-2 IgG Ab Crossmatch 07/15/20 07/15/20 07/15/20 05:31 11:49 17:18 WBC RBC Hgb Hct MCV MCH MCHC RDW Lymph % (Auto) [place] % (Auto) Lymph # (Auto) [place] # (Auto) Baso # (Auto) Seg Neutrophils % Seg Neuts % (Manual) Lymphocytes % (Manual) Nucleated RBC % Seg Neutrophils # Seg Neutrophils # Man Lymphocytes # (Manual) Monocytes # (Manual) Eosinophils # (Manual) PT INR APTT D-Dimer Heparin Anti-Xa Level ABG pH POC ABG pCO2 POC ABG pO2 ABG pO2 ABG HCO3 ABG O2 Saturation ABG Base Excess ABG Hemoglobin ABG Oxyhemoglobin ABG Sodium ABG Potassium ABG Chloride ABG Glucose Oxyhemoglobin Carboxyhemoglobin Sodium Potassium 3.2 L Chloride 91.2 L Carbon Dioxide 33 H BUN Creatinine 0.3 L Glucose 139 H POC Glucose 148 H 196 H Lactic Acid Calcium Magnesium Ferritin Total Bilirubin Direct Bilirubin AST ALT Alkaline Phosphatase Lactate Dehydrogenase C-Reactive Protein Total Protein Albumin Triglycerides Lipase Arterial Blood Glucose Arterial Blood Ionized Calcium Urine WBC (Auto) Coronavirus (PCR) SARS-CoV-2 IgG Ab Crossmatch 07/15/20 07/16/20 07/16/20 23:08 05:18 05:19 WBC 11.3 H RBC 3.10 L Hgb 10.0 L Hct 30.3 L MCV 98 H MCH MCHC RDW 16.3 H Lymph % (Auto) [place] % (Auto) Lymph # (Auto) [place] # (Auto) Baso # (Auto) Seg Neutrophils % Seg Neuts % (Manual) Lymphocytes % (Manual) Nucleated RBC % Seg Neutrophils # Seg Neutrophils # Man Lymphocytes # (Manual) Monocytes # (Manual) Eosinophils # (Manual) PT INR APTT D-Dimer Heparin Anti-Xa Level ABG pH POC ABG pCO2 POC ABG pO2 ABG pO2 ABG HCO3 ABG O2 Saturation ABG Base Excess ABG Hemoglobin ABG Oxyhemoglobin ABG Sodium ABG Potassium ABG Chloride ABG Glucose Oxyhemoglobin Carboxyhemoglobin Sodium Potassium Chloride Carbon Dioxide BUN Creatinine Glucose POC Glucose 131 H 160 H Lactic Acid Calcium Magnesium Ferritin Total Bilirubin Direct Bilirubin AST ALT Alkaline Phosphatase Lactate Dehydrogenase C-Reactive Protein Total Protein Albumin Triglycerides Lipase Arterial Blood Glucose Arterial Blood Ionized Calcium Urine WBC (Auto) Coronavirus (PCR) SARS-CoV-2 IgG Ab Crossmatch 07/16/20 07/16/20 07/16/20 05:19 11:45 17:17 WBC RBC Hgb Hct MCV MCH MCHC RDW Lymph % (Auto) [place] % (Auto) Lymph # (Auto) [place] # (Auto) Baso # (Auto) Seg Neutrophils % Seg Neuts % (Manual) Lymphocytes % (Manual) Nucleated RBC % Seg Neutrophils # Seg Neutrophils # Man Lymphocytes # (Manual) Monocytes # (Manual) Eosinophils # (Manual) PT INR APTT D-Dimer Heparin Anti-Xa Level ABG pH POC ABG pCO2 POC ABG pO2 ABG pO2 ABG HCO3 ABG O2 Saturation ABG Base Excess ABG Hemoglobin ABG Oxyhemoglobin ABG Sodium ABG Potassium ABG Chloride ABG Glucose Oxyhemoglobin Carboxyhemoglobin Sodium 132 L Potassium 3.4 L Chloride 89.9 L Carbon Dioxide 39 H BUN Creatinine 0.3 L Glucose 174 H POC Glucose 169 H 143 H Lactic Acid Calcium Magnesium Ferritin Total Bilirubin Direct Bilirubin AST ALT Alkaline Phosphatase Lactate Dehydrogenase C-Reactive Protein Total Protein Albumin Triglycerides Lipase Arterial Blood Glucose Arterial Blood Ionized Calcium Urine WBC (Auto) Coronavirus (PCR) SARS-CoV-2 IgG Ab Crossmatch 07/16/20 07/17/20 07/17/20 23:54 05:32 11:26 WBC RBC Hgb Hct MCV MCH MCHC RDW Lymph % (Auto) [place] % (Auto) Lymph # (Auto) [place] # (Auto) Baso # (Auto) Seg Neutrophils % Seg Neuts % (Manual) Lymphocytes % (Manual) Nucleated RBC % Seg Neutrophils # Seg Neutrophils # Man Lymphocytes # (Manual) Monocytes # (Manual) Eosinophils # (Manual) PT INR APTT D-Dimer Heparin Anti-Xa Level ABG pH POC ABG pCO2 POC ABG pO2 ABG pO2 ABG HCO3 ABG O2 Saturation ABG Base Excess ABG Hemoglobin ABG Oxyhemoglobin ABG Sodium ABG Potassium ABG Chloride ABG Glucose Oxyhemoglobin Carboxyhemoglobin Sodium Potassium Chloride Carbon Dioxide BUN Creatinine Glucose POC Glucose 147 H 149 H 211 H Lactic Acid Calcium Magnesium Ferritin Total Bilirubin Direct Bilirubin AST ALT Alkaline Phosphatase Lactate Dehydrogenase C-Reactive Protein Total Protein Albumin Triglycerides Lipase Arterial Blood Glucose Arterial Blood Ionized Calcium Urine WBC (Auto) Coronavirus (PCR) SARS-CoV-2 IgG Ab Crossmatch 07/17/20 07/17/20 07/18/20 18:16 23:12 06:15 WBC RBC Hgb Hct MCV MCH MCHC RDW Lymph % (Auto) [place] % (Auto) Lymph # (Auto) [place] # (Auto) Baso # (Auto) Seg Neutrophils % Seg Neuts % (Manual) Lymphocytes % (Manual) Nucleated RBC % Seg Neutrophils # Seg Neutrophils # Man Lymphocytes # (Manual) Monocytes # (Manual) Eosinophils # (Manual) PT INR APTT D-Dimer Heparin Anti-Xa Level ABG pH POC ABG pCO2 POC ABG pO2 ABG pO2 ABG HCO3 ABG O2 Saturation ABG Base Excess ABG Hemoglobin ABG Oxyhemoglobin ABG Sodium ABG Potassium ABG Chloride ABG Glucose Oxyhemoglobin Carboxyhemoglobin Sodium Potassium Chloride Carbon Dioxide BUN Creatinine Glucose POC Glucose 161 H 136 H 108 H Lactic Acid Calcium Magnesium Ferritin Total Bilirubin Direct Bilirubin AST ALT Alkaline Phosphatase Lactate Dehydrogenase C-Reactive Protein Total Protein Albumin Triglycerides Lipase Arterial Blood Glucose Arterial Blood Ionized Calcium Urine WBC (Auto) Coronavirus (PCR) SARS-CoV-2 IgG Ab Crossmatch 07/18/20 07/18/20 07/18/20 08:47 08:47 11:50 WBC 17.7 H RBC 3.29 L Hgb 10.5 L Hct 31.8 L MCV 97 H MCH MCHC RDW 16.9 H Lymph % (Auto) [place] % (Auto) 8.6 H Lymph # (Auto) [place] # (Auto) 1.5 H Baso # (Auto) Seg Neutrophils % 74.6 H Seg Neuts % (Manual) Lymphocytes % (Manual) Nucleated RBC % Seg Neutrophils # 13.2 H Seg Neutrophils # Man Lymphocytes # (Manual) Monocytes # (Manual) Eosinophils # (Manual) PT INR APTT D-Dimer Heparin Anti-Xa Level ABG pH POC ABG pCO2 POC ABG pO2 ABG pO2 ABG HCO3 ABG O2 Saturation ABG Base Excess ABG Hemoglobin ABG Oxyhemoglobin ABG Sodium ABG Potassium ABG Chloride ABG Glucose Oxyhemoglobin Carboxyhemoglobin Sodium Potassium 2.8 L* Chloride 92.6 L Carbon Dioxide 40 H BUN Creatinine 0.3 L Glucose 177 H POC Glucose 178 H Lactic Acid Calcium Magnesium Ferritin Total Bilirubin Direct Bilirubin AST ALT Alkaline Phosphatase Lactate Dehydrogenase C-Reactive Protein Total Protein Albumin Triglycerides Lipase Arterial Blood Glucose Arterial Blood Ionized Calcium Urine WBC (Auto) Coronavirus (PCR) SARS-CoV-2 IgG Ab Crossmatch 07/18/20 07/18/20 07/19/20 17:18 23:33 05:22 WBC RBC Hgb Hct MCV MCH MCHC RDW Lymph % (Auto) [place] % (Auto) Lymph # (Auto) [place] # (Auto) Baso # (Auto) Seg Neutrophils % Seg Neuts % (Manual) Lymphocytes % (Manual) Nucleated RBC % Seg Neutrophils # Seg Neutrophils # Man Lymphocytes # (Manual) Monocytes # (Manual) Eosinophils # (Manual) PT INR APTT D-Dimer Heparin Anti-Xa Level ABG pH POC ABG pCO2 POC ABG pO2 ABG pO2 ABG HCO3 ABG O2 Saturation ABG Base Excess ABG Hemoglobin ABG Oxyhemoglobin ABG Sodium ABG Potassium ABG Chloride ABG Glucose Oxyhemoglobin Carboxyhemoglobin Sodium Potassium Chloride Carbon Dioxide BUN Creatinine Glucose POC Glucose 171 H 162 H 166 H Lactic Acid Calcium Magnesium Ferritin Total Bilirubin Direct Bilirubin AST ALT Alkaline Phosphatase Lactate Dehydrogenase C-Reactive Protein Total Protein Albumin Triglycerides Lipase Arterial Blood Glucose Arterial Blood Ionized Calcium Urine WBC (Auto) Coronavirus (PCR) SARS-CoV-2 IgG Ab Crossmatch 07/19/20 07/19/20 07/19/20 12:00 16:27 23:41 WBC RBC Hgb Hct MCV MCH MCHC RDW Lymph % (Auto) [place] % (Auto) Lymph # (Auto) [place] # (Auto) Baso # (Auto) Seg Neutrophils % Seg Neuts % (Manual) Lymphocytes % (Manual) Nucleated RBC % Seg Neutrophils # Seg Neutrophils # Man Lymphocytes # (Manual) Monocytes # (Manual) Eosinophils # (Manual) PT INR APTT D-Dimer Heparin Anti-Xa Level ABG pH POC ABG pCO2 POC ABG pO2 ABG pO2 ABG HCO3 ABG O2 Saturation ABG Base Excess ABG Hemoglobin ABG Oxyhemoglobin ABG Sodium ABG Potassium ABG Chloride ABG Glucose Oxyhemoglobin Carboxyhemoglobin Sodium Potassium Chloride Carbon Dioxide BUN Creatinine Glucose POC Glucose 201 H 205 H 106 H Lactic Acid Calcium Magnesium Ferritin Total Bilirubin Direct Bilirubin AST ALT Alkaline Phosphatase Lactate Dehydrogenase C-Reactive Protein Total Protein Albumin Triglycerides Lipase Arterial Blood Glucose Arterial Blood Ionized Calcium Urine WBC (Auto) Coronavirus (PCR) SARS-CoV-2 IgG Ab Crossmatch 07/20/20 07/20/20 07/20/20 05:28 11:18 17:30 WBC RBC Hgb Hct MCV MCH MCHC RDW Lymph % (Auto) [place] % (Auto) Lymph # (Auto) [place] # (Auto) Baso # (Auto) Seg Neutrophils % Seg Neuts % (Manual) Lymphocytes % (Manual) Nucleated RBC % Seg Neutrophils # Seg Neutrophils # Man Lymphocytes # (Manual) Monocytes # (Manual) Eosinophils # (Manual) PT INR APTT D-Dimer Heparin Anti-Xa Level ABG pH POC ABG pCO2 POC ABG pO2 ABG pO2 ABG HCO3 ABG O2 Saturation ABG Base Excess ABG Hemoglobin ABG Oxyhemoglobin ABG Sodium ABG Potassium ABG Chloride ABG Glucose Oxyhemoglobin Carboxyhemoglobin Sodium Potassium Chloride Carbon Dioxide BUN Creatinine Glucose POC Glucose 130 H 195 H 141 H Lactic Acid Calcium Magnesium Ferritin Total Bilirubin Direct Bilirubin AST ALT Alkaline Phosphatase Lactate Dehydrogenase C-Reactive Protein Total Protein Albumin Triglycerides Lipase Arterial Blood Glucose Arterial Blood Ionized Calcium Urine WBC (Auto) Coronavirus (PCR) SARS-CoV-2 IgG Ab Crossmatch 07/20/20 07/21/20 07/21/20 23:26 05:03 17:03 WBC RBC Hgb Hct MCV MCH MCHC RDW Lymph % (Auto) [place] % (Auto) Lymph # (Auto) [place] # (Auto) Baso # (Auto) Seg Neutrophils % Seg Neuts % (Manual) Lymphocytes % (Manual) Nucleated RBC % Seg Neutrophils # Seg Neutrophils # Man Lymphocytes # (Manual) Monocytes # (Manual) Eosinophils # (Manual) PT INR APTT D-Dimer Heparin Anti-Xa Level ABG pH POC ABG pCO2 POC ABG pO2 ABG pO2 ABG HCO3 ABG O2 Saturation ABG Base Excess ABG Hemoglobin ABG Oxyhemoglobin ABG Sodium ABG Potassium ABG Chloride ABG Glucose Oxyhemoglobin Carboxyhemoglobin Sodium Potassium Chloride Carbon Dioxide BUN Creatinine Glucose POC Glucose 116 H 142 H 181 H Lactic Acid Calcium Magnesium Ferritin Total Bilirubin Direct Bilirubin AST ALT Alkaline Phosphatase Lactate Dehydrogenase C-Reactive Protein Total Protein Albumin Triglycerides Lipase Arterial Blood Glucose Arterial Blood Ionized Calcium Urine WBC (Auto) Coronavirus (PCR) SARS-CoV-2 IgG Ab Crossmatch 07/21/20 07/22/20 07/22/20 23:51 06:09 11:40 WBC RBC Hgb Hct MCV MCH MCHC RDW Lymph % (Auto) [place] % (Auto) Lymph # (Auto) [place] # (Auto) Baso # (Auto) Seg Neutrophils % Seg Neuts % (Manual) Lymphocytes % (Manual) Nucleated RBC % Seg Neutrophils # Seg Neutrophils # Man Lymphocytes # (Manual) Monocytes # (Manual) Eosinophils # (Manual) PT INR APTT D-Dimer Heparin Anti-Xa Level ABG pH POC ABG pCO2 POC ABG pO2 ABG pO2 ABG HCO3 ABG O2 Saturation ABG Base Excess ABG Hemoglobin ABG Oxyhemoglobin ABG Sodium ABG Potassium ABG Chloride ABG Glucose Oxyhemoglobin Carboxyhemoglobin Sodium Potassium Chloride Carbon Dioxide BUN Creatinine Glucose POC Glucose 127 H 136 H 160 H Lactic Acid Calcium Magnesium Ferritin Total Bilirubin Direct Bilirubin AST ALT Alkaline Phosphatase Lactate Dehydrogenase C-Reactive Protein Total Protein Albumin Triglycerides Lipase Arterial Blood Glucose Arterial Blood Ionized Calcium Urine WBC (Auto) Coronavirus (PCR) SARS-CoV-2 IgG Ab Crossmatch 07/22/20 07/22/20 07/23/20 18:14 23:25 05:58 WBC 12.2 H RBC 3.44 L Hgb 10.9 L Hct 33.9 L MCV 99 H MCH MCHC RDW 16.9 H Lymph % (Auto) [place] % (Auto) 10.0 H Lymph # (Auto) [place] # (Auto) 1.2 H Baso # (Auto) Seg Neutrophils % Seg Neuts % (Manual) Lymphocytes % (Manual) Nucleated RBC % Seg Neutrophils # 8.3 H Seg Neutrophils # Man Lymphocytes # (Manual) Monocytes # (Manual) Eosinophils # (Manual) PT INR APTT D-Dimer Heparin Anti-Xa Level ABG pH POC ABG pCO2 POC ABG pO2 ABG pO2 ABG HCO3 ABG O2 Saturation ABG Base Excess ABG Hemoglobin ABG Oxyhemoglobin ABG Sodium ABG Potassium ABG Chloride ABG Glucose Oxyhemoglobin Carboxyhemoglobin Sodium Potassium Chloride Carbon Dioxide BUN Creatinine Glucose POC Glucose 189 H 164 H Lactic Acid Calcium Magnesium Ferritin Total Bilirubin Direct Bilirubin AST ALT Alkaline Phosphatase Lactate Dehydrogenase C-Reactive Protein Total Protein Albumin Triglycerides Lipase Arterial Blood Glucose Arterial Blood Ionized Calcium Urine WBC (Auto) Coronavirus (PCR) SARS-CoV-2 IgG Ab Crossmatch 07/23/20 07/23/20 07/23/20 05:58 06:02 12:14 WBC RBC Hgb Hct MCV MCH MCHC RDW Lymph % (Auto) [place] % (Auto) Lymph # (Auto) [place] # (Auto) Baso # (Auto) Seg Neutrophils % Seg Neuts % (Manual) Lymphocytes % (Manual) Nucleated RBC % Seg Neutrophils # Seg Neutrophils # Man Lymphocytes # (Manual) Monocytes # (Manual) Eosinophils # (Manual) PT INR APTT D-Dimer Heparin Anti-Xa Level ABG pH POC ABG pCO2 POC ABG pO2 ABG pO2 ABG HCO3 ABG O2 Saturation ABG Base Excess ABG Hemoglobin ABG Oxyhemoglobin ABG Sodium ABG Potassium ABG Chloride ABG Glucose Oxyhemoglobin Carboxyhemoglobin Sodium Potassium 2.9 L* Chloride 94.9 L Carbon Dioxide 33 H D BUN Creatinine 0.4 L Glucose 129 H POC Glucose 111 H 142 H Lactic Acid Calcium Magnesium Ferritin Total Bilirubin Direct Bilirubin AST ALT Alkaline Phosphatase Lactate Dehydrogenase C-Reactive Protein Total Protein Albumin 3.5 L Triglycerides Lipase Arterial Blood Glucose Arterial Blood Ionized Calcium Urine WBC (Auto) Coronavirus (PCR) SARS-CoV-2 IgG Ab Crossmatch 07/23/20 07/23/20 07/24/20 17:20 23:39 05:05 WBC 13.3 H RBC 3.40 L Hgb 10.8 L Hct 33.4 L MCV 98 H MCH MCHC RDW 16.7 H Lymph % (Auto) [place] % (Auto) 10.0 H Lymph # (Auto) [place] # (Auto) 1.3 H Baso # (Auto) Seg Neutrophils % Seg Neuts % (Manual) Lymphocytes % (Manual) Nucleated RBC % Seg Neutrophils # 9.0 H Seg Neutrophils # Man Lymphocytes # (Manual) Monocytes # (Manual) Eosinophils # (Manual) PT INR APTT D-Dimer Heparin Anti-Xa Level ABG pH POC ABG pCO2 POC ABG pO2 ABG pO2 ABG HCO3 ABG O2 Saturation ABG Base Excess ABG Hemoglobin ABG Oxyhemoglobin ABG Sodium ABG Potassium ABG Chloride ABG Glucose Oxyhemoglobin Carboxyhemoglobin Sodium Potassium Chloride Carbon Dioxide BUN Creatinine Glucose POC Glucose 150 H 120 H Lactic Acid Calcium Magnesium Ferritin Total Bilirubin Direct Bilirubin AST ALT Alkaline Phosphatase Lactate Dehydrogenase C-Reactive Protein Total Protein Albumin Triglycerides Lipase Arterial Blood Glucose Arterial Blood Ionized Calcium Urine WBC (Auto) Coronavirus (PCR) SARS-CoV-2 IgG Ab Crossmatch 07/24/20 07/24/20 07/24/20 05:05 05:39 11:30 WBC RBC Hgb Hct MCV MCH MCHC RDW Lymph % (Auto) [place] % (Auto) Lymph # (Auto) [place] # (Auto) Baso # (Auto) Seg Neutrophils % Seg Neuts % (Manual) Lymphocytes % (Manual) Nucleated RBC % Seg Neutrophils # Seg Neutrophils # Man Lymphocytes # (Manual) Monocytes # (Manual) Eosinophils # (Manual) PT INR APTT D-Dimer Heparin Anti-Xa Level ABG pH POC ABG pCO2 POC ABG pO2 ABG pO2 ABG HCO3 ABG O2 Saturation ABG Base Excess ABG Hemoglobin ABG Oxyhemoglobin ABG Sodium ABG Potassium ABG Chloride ABG Glucose Oxyhemoglobin Carboxyhemoglobin Sodium Potassium Chloride 97.4 L Carbon Dioxide BUN Creatinine 0.3 L Glucose 111 H POC Glucose 118 H 160 H Lactic Acid Calcium Magnesium Ferritin Total Bilirubin Direct Bilirubin AST ALT Alkaline Phosphatase Lactate Dehydrogenase C-Reactive Protein Total Protein Albumin Triglycerides Lipase Arterial Blood Glucose Arterial Blood Ionized Calcium Urine WBC (Auto) Coronavirus (PCR) SARS-CoV-2 IgG Ab Crossmatch 07/24/20 07/24/20 07/25/20 16:45 23:43 05:00 WBC RBC Hgb Hct MCV MCH MCHC RDW Lymph % (Auto) [place] % (Auto) Lymph # (Auto) [place] # (Auto) Baso # (Auto) Seg Neutrophils % Seg Neuts % (Manual) Lymphocytes % (Manual) Nucleated RBC % Seg Neutrophils # Seg Neutrophils # Man Lymphocytes # (Manual) Monocytes # (Manual) Eosinophils # (Manual) PT INR APTT D-Dimer Heparin Anti-Xa Level ABG pH POC ABG pCO2 POC ABG pO2 ABG pO2 ABG HCO3 ABG O2 Saturation ABG Base Excess ABG Hemoglobin ABG Oxyhemoglobin ABG Sodium ABG Potassium ABG Chloride ABG Glucose Oxyhemoglobin Carboxyhemoglobin Sodium Potassium Chloride Carbon Dioxide BUN Creatinine Glucose POC Glucose 181 H 122 H 114 H Lactic Acid Calcium Magnesium Ferritin Total Bilirubin Direct Bilirubin AST ALT Alkaline Phosphatase Lactate Dehydrogenase C-Reactive Protein Total Protein Albumin Triglycerides Lipase Arterial Blood Glucose Arterial Blood Ionized Calcium Urine WBC (Auto) Coronavirus (PCR) SARS-CoV-2 IgG Ab Crossmatch 07/25/20 07/25/20 07/25/20 11:44 16:44 23:41 WBC RBC Hgb Hct MCV MCH MCHC RDW Lymph % (Auto) [place] % (Auto) Lymph # (Auto) [place] # (Auto) Baso # (Auto) Seg Neutrophils % Seg Neuts % (Manual) Lymphocytes % (Manual) Nucleated RBC % Seg Neutrophils # Seg Neutrophils # Man Lymphocytes # (Manual) Monocytes # (Manual) Eosinophils # (Manual) PT INR APTT D-Dimer Heparin Anti-Xa Level ABG pH POC ABG pCO2 POC ABG pO2 ABG pO2 ABG HCO3 ABG O2 Saturation ABG Base Excess ABG Hemoglobin ABG Oxyhemoglobin ABG Sodium ABG Potassium ABG Chloride ABG Glucose Oxyhemoglobin Carboxyhemoglobin Sodium Potassium Chloride Carbon Dioxide BUN Creatinine Glucose POC Glucose 298 H 166 H 133 H Lactic Acid Calcium Magnesium Ferritin Total Bilirubin Direct Bilirubin AST ALT Alkaline Phosphatase Lactate Dehydrogenase C-Reactive Protein Total Protein Albumin Triglycerides Lipase Arterial Blood Glucose Arterial Blood Ionized Calcium Urine WBC (Auto) Coronavirus (PCR) SARS-CoV-2 IgG Ab Crossmatch 07/26/20 07/26/20 07/26/20 05:17 11:17 18:07 WBC RBC Hgb Hct MCV MCH MCHC RDW Lymph % (Auto) [place] % (Auto) Lymph # (Auto) [place] # (Auto) Baso # (Auto) Seg Neutrophils % Seg Neuts % (Manual) Lymphocytes % (Manual) Nucleated RBC % Seg Neutrophils # Seg Neutrophils # Man Lymphocytes # (Manual) Monocytes # (Manual) Eosinophils # (Manual) PT INR APTT D-Dimer Heparin Anti-Xa Level ABG pH POC ABG pCO2 POC ABG pO2 ABG pO2 ABG HCO3 ABG O2 Saturation ABG Base Excess ABG Hemoglobin ABG Oxyhemoglobin ABG Sodium ABG Potassium ABG Chloride ABG Glucose Oxyhemoglobin Carboxyhemoglobin Sodium Potassium Chloride Carbon Dioxide BUN Creatinine Glucose POC Glucose 113 H 157 H 154 H Lactic Acid Calcium Magnesium Ferritin Total Bilirubin Direct Bilirubin AST ALT Alkaline Phosphatase Lactate Dehydrogenase C-Reactive Protein Total Protein Albumin Triglycerides Lipase Arterial Blood Glucose Arterial Blood Ionized Calcium Urine WBC (Auto) Coronavirus (PCR) SARS-CoV-2 IgG Ab Crossmatch 07/26/20 07/27/20 07/27/20 23:44 08:26 08:26 WBC RBC 3.63 L Hgb Hct MCV 98 H MCH MCHC RDW 17.5 H Lymph % (Auto) [place] % (Auto) 10.6 H Lymph # (Auto) [place] # (Auto) 1.1 H Baso # (Auto) Seg Neutrophils % Seg Neuts % (Manual) Lymphocytes % (Manual) Nucleated RBC % Seg Neutrophils # Seg Neutrophils # Man Lymphocytes # (Manual) Monocytes # (Manual) Eosinophils # (Manual) PT INR APTT D-Dimer Heparin Anti-Xa Level ABG pH POC ABG pCO2 POC ABG pO2 ABG pO2 ABG HCO3 ABG O2 Saturation ABG Base Excess ABG Hemoglobin ABG Oxyhemoglobin ABG Sodium ABG Potassium ABG Chloride ABG Glucose Oxyhemoglobin Carboxyhemoglobin Sodium Potassium Chloride 97.9 L Carbon Dioxide 37 H D BUN Creatinine 0.4 L Glucose 115 H POC Glucose 148 H Lactic Acid Calcium Magnesium Ferritin Total Bilirubin Direct Bilirubin AST ALT Alkaline Phosphatase Lactate Dehydrogenase C-Reactive Protein Total Protein Albumin Triglycerides Lipase Arterial Blood Glucose Arterial Blood Ionized Calcium Urine WBC (Auto) Coronavirus (PCR) SARS-CoV-2 IgG Ab Crossmatch 07/27/20 07/27/20 07/27/20 11:41 16:50 23:22 WBC RBC Hgb Hct MCV MCH MCHC RDW Lymph % (Auto) [place] % (Auto) Lymph # (Auto) [place] # (Auto) Baso # (Auto) Seg Neutrophils % Seg Neuts % (Manual) Lymphocytes % (Manual) Nucleated RBC % Seg Neutrophils # Seg Neutrophils # Man Lymphocytes # (Manual) Monocytes # (Manual) Eosinophils # (Manual) PT INR APTT D-Dimer Heparin Anti-Xa Level ABG pH POC ABG pCO2 POC ABG pO2 ABG pO2 ABG HCO3 ABG O2 Saturation ABG Base Excess ABG Hemoglobin ABG Oxyhemoglobin ABG Sodium ABG Potassium ABG Chloride ABG Glucose Oxyhemoglobin Carboxyhemoglobin Sodium Potassium Chloride Carbon Dioxide BUN Creatinine Glucose POC Glucose 169 H 132 H 120 H Lactic Acid Calcium Magnesium Ferritin Total Bilirubin Direct Bilirubin AST ALT Alkaline Phosphatase Lactate Dehydrogenase C-Reactive Protein Total Protein Albumin Triglycerides Lipase Arterial Blood Glucose Arterial Blood Ionized Calcium Urine WBC (Auto) Coronavirus (PCR) SARS-CoV-2 IgG Ab Crossmatch 07/28/20 07/29/20 17:39 14:14 WBC RBC Hgb Hct MCV MCH MCHC RDW Lymph % (Auto) [place] % (Auto) Lymph # (Auto) [place] # (Auto) Baso # (Auto) Seg Neutrophils % Seg Neuts % (Manual) Lymphocytes % (Manual) Nucleated RBC % Seg Neutrophils # Seg Neutrophils # Man Lymphocytes # (Manual) Monocytes # (Manual) Eosinophils # (Manual) PT INR APTT D-Dimer Heparin Anti-Xa Level ABG pH POC ABG pCO2 POC ABG pO2 ABG pO2 ABG HCO3 ABG O2 Saturation ABG Base Excess ABG Hemoglobin ABG Oxyhemoglobin ABG Sodium ABG Potassium ABG Chloride ABG Glucose Oxyhemoglobin Carboxyhemoglobin Sodium Potassium Chloride Carbon Dioxide BUN Creatinine Glucose POC Glucose 187 H 188 H Lactic Acid Calcium Magnesium Ferritin Total Bilirubin Direct Bilirubin AST ALT Alkaline Phosphatase Lactate Dehydrogenase C-Reactive Protein Total Protein Albumin Triglycerides Lipase Arterial Blood Glucose Arterial Blood Ionized Calcium Urine WBC (Auto) Coronavirus (PCR) SARS-CoV-2 IgG Ab Crossmatch Chest x-ray: pending Allied health notes reviewed: nursing
[2020-07-29] MEDS: ENOXAPARIN 40 MG/0.4 ML INJ SUB-Q SCH (21:54)
[2020-07-30] MEDS: INSULIN LISPRO 100 UNIT/ML VIAL 3 mL SUB-Q SCH ×4 (00:01→17:31)
[2020-07-30] MEDS: MIDODRINE 5 MG TAB PO SCH ×3 (08:48→17:33)
--- NOTE | 2020-07-30 10:23 | Progress Note ---
Subjective - Reason for Consult Consult date: 07/30/20 Reason for consult: MHE Requesting physician: BLAIR WALLIS - Chief Complaint Chief complaint: Psych Progress Patient seen today, alert and oriented, no reported complaints, medication compliant, no delusional thoughts or acute psychiatric concerns from care team staff. Patient denies depression, SI or hallucinations MENTAL STATUS EXAMINATION General Appearance and Behavior: Age appropriate, good hygiene, wearing appropriate clothes, cooperative polite with questioning. Cooperation: engaged Psychomotor Behavior: Psychomotor normal Mood: alright Affect and affective range: congruent with mood Thought Process: logical Thought Content: within reality Speech: Low volume, Regular rate and rhythm, Intellectual Functioning: improved Suicidal Ideation: none Homicidal Ideation: none Impulse Control: Unimpaired Insight and Judgment: unimpaired Memory: memory improved Attention: alert and oriented Assessment and Plan (1) Delirium due to another medical condition (F05) Current Visit: Yes Status: Acute Treatment Continue current medications Risks, benefits and alternatives of medications discussed with the patient, questions answered and consent obtained from patient. PSYCHOTHERAPY: Supportive psychotherapy provided MEDICAL: Per primary team DELIRIUM PRECAUTIONS: Please re-orient patient frequently, keep lights on during the day, and minimize benzodiazepines and opiates as these medications could worsen patient's confusion. PROPERTY MANAGEMENT COORDINATOR: Defer to primary DISPOSITION: Do Not Recommend acute inpatient psychiatric hospitalization at this time but patient will be followed. Case discussed with Dr. Foster who agr ees with current disposition Will sign off Thank you for the consult. Please contact with any questions and/or concerns. Mental Status Exam - Vital signs Last Vital Signs Temp 97.6 F 07/30/20 08:30 Pulse 114 H 07/30/20 08:30 Resp 18 07/30/20 08:30 BP 131/72 07/30/20 08:30 Pulse Ox 92 07/30/20 08:30 Assessment and Plan - Patient Problems (1) Delirium due to another medical condition Current Visit: Yes Status: Acute
--- NOTE | 2020-07-30 10:50 | Progress Note ---
Assessment and Plan Assessment and plan: Positive COVID-19 test; 05/10/2020 Negative COVID-19 test; 06/30/2020 --Acute hypoxemic respiratory failure; on 8 L oxygen today Continue to wean the oxygen dose, supportive care Pulmonary following --Pneumothorax status post right chest tube Chest tube removed 07/23/2020 Post removal chest x-ray no pneumothorax Patient is requiring 10 L nasal cannula oxygen Wean oxygen as tolerated --Severe hypokalemia; resolved Monitor electrolytes, treat as needed --Sinus tachycardia: Significantly improved HR 80s - 110, monitor --Severe COVID-19 bilateral pneumonia Coronavirus protocol: IV steroid therapy, completed remdesivir, isolation precautions, contact precautions, prone positioning while in bed, pulmonary toilet. ID following SARS CoV-2 IgG positive patient is NOT a candidate for convalescent plasma --Elevated D-dimers; Patient had CTA chest ; negative for PE, patient already had lower extremity venous Doppler which was negative for DVT We will discontinue empiric therapeutic Lovenox, and change to DVT prophylaxis dose 40 mg subcu daily --Pseudomonas bacteremia; ID following, completed cefepime Monitor off antibiotics --Severe sepsis/septic shock, monitor off pressors Completed cefepime, monitor off antibiotics -- Acute kidney injury (SEN) , likely vasomotor nephropathy Resolved, avoid nephrotoxins --Acute on chronic anemia Guaiac test positive, GI evaluated the patient Patient H&H is normal range now Hb 11.8 -- Elevated liver function tests; resolved LFTs within normal limits Probably secondary to alcoholic liver disease. --Colonic distention GI evaluated colonic distention resolved recommend stool softeners -- DVT prophylaxis On therapeutic Lovenox Closely monitor the patient and adjust management as needed Chest tube removed Patient on 10 L nasal cannula oxygen, wean as tolerated Elevated D-dimers, on empiric therapeutic Lovenox CTA chest negative for PE,LE DVT negative, therapeutic Lovenox DC'd Changed to prophylactic Lovenox Physical therapy, evaluation noted and appreciated, recommend LTAC versus subacute Brief history and hospital course; 50 YO Male with Obesity, ETOH Dependence presents to ED for evaluation. Patient states that he has experienced shortness of breath, generalized weakness, fatigue, malaise, body aches, decreased exercise tolerance over the past 5 days with persistently worsening symptoms over the same timeframe. EMS was notified and upon arrival the patient was found to be in distress with a pulse oximetry of 76% on room air as well as fever to 103 F. Patient was placed on supplemental oxygen and subsequently transported to [facility] for further care and evaluation. Patient seen and evaluated in the emergency department. All lab and imaging studies reviewed. Patient underwent chest x-ray and was found to have bilateral pneumonia. Patient also found to have a pulse oximetry of 86% on 4 L nasal cannula. Patient initiated on a high flow submental oxygen with improvement of pulse oximetry. Patient admitted to medical floor and initiated on pneumonia protocol as well as COVID-19 protocol. Patient also found to have acute kidney injury as well as elevated liver function test suspected secondary to alcohol dependence. Patient reports being diagnosed with coronavirus 2 days ago. No prior admission for review. 06/16/2020. Patient currently on mechanical ventilation with AC mode rate 30, tidal volume 500, FiO2 70% and PEEP of 16. Continue anticoagulation with Lovenox 110 milligrams subcu every 12 hours. Wean sedation of fentanyl/Versed as needed. Currently with IV steroids of Solu-Medrol 40 mg IV every 12 hours. Patient will likely need tracheostomy per pulmonary recommendations. Continue pressors to maintain MAP > 65. 06/17/2020. Patient currently on mechanical ventilation with AC mode rate 30, tidal volume 500, FiO2 65% and PEEP of 16. Continue anticoagulation with Lovenox 110 milligrams subcu every 12 hours. Wean sedation of fentanyl/Versed as needed. Currently with IV steroids of Solu-Medrol 40 mg IV every 12 hours. Patient will likely need tracheostomy per pulmonary recommendations. 06/18/2020. Patient currently on mechanical ventilation with AC mode rate 30, tidal volume 500, FiO2 70% and PEEP of 16. Continue Lovenox for anticoagulation and fentanyl/Versed for sedation. Wean steroids per pulmonary. CIWA protocol initiated for history of EtOH dependence 06/19/2020. Patient currently on mechanical ventilation with AC mode rate 30, tidal volume 500, FiO2 60% and PEEP of 16. Wean FiO2 as tolerated per protocol. Continue Lovenox for anticoagulation and fentanyl/Versed for sedation. Wean steroids per pulmonary. CIWA protocol initiated for history of EtOH dependence 06/20/2020. Patient currently on mechanical ventilation with AC mode rate 30, tidal volume 500, FiO2 60% and PEEP of 16. Wean FiO2 as tolerated, SBT per protocol. Continue Lovenox for anticoagulation and fentanyl/Versed for sedation. Wean steroids per pulmonary. Continue pressors to maintain MAP > 65 mmHg. Patient remains on ETT. Consider tracheostomy placement once oxygenation is better per pulmonary. CIWA protocol initiated for history of EtOH dependence. 06/21/2020. Patient with a small apical pneumothorax discovered yesterday. General surgery consulted and consider placing chest tube. Follow-up serial chest x-ray patient currently on mechanical ventilation with AC mode rate 30, tidal volume 500, FiO2 60% and PEEP of 16. Wean FiO2 as tolerated, SBT per protocol. Continue Lovenox for anticoagulation and fentanyl/Versed for sedation. Wean steroids per pulmonary. Continue pressors to maintain MAP > 65 mmHg. Patient remains on ETT. Consider tracheostomy placement once oxygenation is better per pulmonary. CIWA protocol initiated for history of EtOH depen dence. 06/22. Status post right chest tube placement yesterday. Remains mechanically ventilated on pressors. Examination today shows slightly distended abdomen. KUB ordered. Awaiting stool guaiac. Plan to get a GI evaluation. 06/23. Has colonic distention on the x-ray. Discussed with GI-advised stool softeners for now and close monitoring. No indication for colonic decompression at this time. Guaiac test is positive. No emergent indication for endoscopy at this point as per GI. Continue to monitor hemoglobin. 06/24. Remains intubated. On pressors. GI following for positive guaiac stool and anemia, and colonic distention. 06/25. Repeat abdominal xray ordered. Remains on mechanical ventilation. 06/26. Abdominal xray - resolved colonic distension. Mechanically ventilated. 06/27. Plan for trach and PEG. 06/28: Awaiting trach and Peg. S\ome Bm REPORTED, will continue to monitor 06/29: Resume care, patient remains on ventilator support, waiting on trach and PEG placement. BM reported by the RN, continue to monitor. 06/30: Unable to wean off from vent, patient will need trach and PEG. Continue supportive care, tolerating tube feed. Monitor CBC and BMP 07/01: Continue mechanical ventilation, tube feeding as tolerated. Sedation as needed per mechanical ventilation protocol. Waiting on trach and PEG placement. 07/02: Continue current management, tube feeding, monitor CBC and BMP. Need trach and PEG-waiting on scheduling. Pulmonary critical care following. 07/03: wean off vent as tolerated. follow clinically. need trach and PEG 07/04: unable to wean. CT head ordered to assess for any changes but too unstable to do the test. need trach and PEG. 07/05: plan for trach/peg - GS following. off pressor - on midodrine. renal function stable. intubated, but alert and can follow minor commend. discussed with daughter by phone. 07/06/2020; Dr. Márquez discussed with patient's daughter about trach but the daughter needs time to think about it. Patient was intubated and alert, FiO2 40%. 07/07/2020; patient was intubated and alert, FiO2 40%. Patient was diaphoretic, tachycardic, and EKG was done which was abnormal for me. I called supervisor fertilizer Dr Louis saw the EKG and said it is normal EKG, and the findings are abnormal. 07/08/2020; no significant change, patient is intubated and alert. 12: Patient continues on current management. Pulmonary recommending trach and PEG awaiting patient's decision on this. Will check intermittent labs 07/11: Ordered CT still pending. Patient was agitated at night. Appears to have calmed down. Will repeat labs today. 07/12: Continue supportive care, awaiting CPAP trial. discussed with pulmonary. Obtain labs today. Trach and Peg planned 07/13: Continues to current management, PLAN FOR Trach and PEG on Sunday if patient is not able to liberated from the ventilator, Continue to monitor Fever curve and repeat Sepsis work up if persistent fever 07/14: Now extubated, continue to work up. 07/15: Clinical stable for transfer to [facility], still with fever and now showing bactermia. Continue Abx per ID. monitor fever 07/16: Continue supportive care. MONITOR FEVER CURVE, Adjust antibiotics as tolerated 07/17: Chest tube remains in place. More lethargic, Requested BIPAP to bedside, Chest tube to be discontinued, Awaiting Pysch input. 07/18: Chest tube remains in place repeat chest x-ray shows persistent bilateral opacity with mild improvement. Continue nebulizer treatments. Hypokalemia also noted will replace. Pulmonary and surgical input noted 07/19: Patient is a 50-year-old male admitted with shortness of breath ended up on mechanical ventilation noted to have pneumothorax has a chest tube in place. Has been successfully extubated but remains with delirium secondary to medical condition and also mild to moderate respiratory distress on Venturi mask. Continue weaning attempts. Patient still with chest tube. Continue serial x- rays. Will discuss with case management about possible LTAC placement. Blood cultures are currently returning Pseudomonas species. ID is following. 07/20/2020; patient continues to feel better, high flow oxygen and BiPAP Chest tube in place, continue current management, pulmonary surgery following 07/21/2020:Patient remains on High flow o2 07/22/2020; patient remains on high flow oxygen 8 L 100% O2 sat 93% Case management checking for LTAC placement 07/23/2020; patient remains on high flow oxygen, wean oxygen as tolerated, severe hypokalemia Replenish per protocol monitor levels 07/24/2020; patient had chest tube removal yesterday 07/23/2019 and, post removal chest x-ray no pneumothorax no acute abnormalities Patient feels slightly better continues to require high flow oxygen Wean as tolerated, physical and occupational therapy, DC planning 07/26/2020; patient on 3 L nasal cannula oxygen, patient feels better 07/27/2020; patient was saturating well on 3 L of nasal cannula oxygen, however today patient is on high flow oxygen 15 L Complains of some congestion, wean oxygen levels to 3-5 as tolerated Discharge planning LTAC has refused patient,Possible home with home health versus placement when medically stable 07/28/2020; continue to wean oxygen, patient is on 10 L, awaiting placement 07/29/2020; continues to be on 10 L nasal cannula oxygen, wean as tolerated Patient is on empiric therapeutic dose Lovenox, due to elevated D-dimers Patient is stable for CTA chest today, follow the report and adjust Lovenox as needed DC planning per case management, with pending placement 07/30/2020; patient feels slightly better, oxygen reduced to 8 L of nasal cannula Will check PT OT, pending placement History Interval history: I have seen and examined the patient at the bedside Patient feels slightly better on 7 to 8 L of nasal cannula oxygen Patient has no new complaints anxious to go home Vital signs noted Hospitalist Physical - Constitutional Vitals: Temp Pulse Resp BP Pulse Ox 97.6 F 114 H 18 131/72 92 07/30/20 08:30 07/30/20 08:30 07/30/20 08:30 07/30/20 08:30 07/30/20 08:30 General appearance: Present: no acute distress, well-nourished, other (On 10 L oxygen) - EENT Eyes: Present: PERRL, EOM intact - Neck Neck: Present: supple, normal ROM - Respiratory Respiratory effort: normal Respiratory: bilateral: diminished, negative: rales, rhonchi, wheezing - Cardiovascular Rhythm: regular Heart Sounds: Present: S1 & S2 - Extremities Extremities: no ischemia, No edema - Abdominal General gastrointestinal: soft, non-tender, non-distended, normal bowel sounds - Integumentary Integumentary: Present: clear, warm - Psychiatric Psychiatric: appropriate mood/affect, cooperative - Neurologic Neurologic: moves all extremities HEART Score - HEART Score Troponin: Troponin T 0.015 ng/mL (0.00-0.029) 07/07/20 10:00 Results - Labs CBC & Chem 7: 07/27/20 08:26 07/27/20 08:26 Labs: Laboratory Last Values WBC 10.6 K/mm3 (4.5-11.0) 07/27/20 08:26 RBC 3.63 M/mm3 (3.65-5.03) L 07/27/20 08:26 Hgb 11.8 gm/dl (11.8-15.2) 07/27/20 08:26 Hct 35.7 % (35.5-45.6) 07/27/20 08:26 MCV 98 fl (84-94) H 07/27/20 08:26 MCH 32 pg (28-32) 07/27/20 08:26 MCHC 33 % (32-34) 07/27/20 08:26 RDW 17.5 % (13.2-15.2) H 07/27/20 08:26 Plt Count 354 K/mm3 (140-440) 07/27/20 08:26 Lymph % (Auto) 19.5 % (13.4-35.0) 07/27/20 08:26 Swift % (Auto) 10.6 % (0.0-7.3) H 07/27/20 08:26 Eos % (Auto) 2.5 % (0.0-4.3) 07/27/20 08:26 Baso % (Auto) 0.5 % (0.0-1.8) 07/27/20 08:26 Lymph # (Auto) 2.1 K/mm3 (1.2-5.4) 07/27/20 08:26 Swift # (Auto) 1.1 K/mm3 (0.0-0.8) H 07/27/20 08:26 Eos # (Auto) 0.3 K/mm3 (0.0-0.4) 07/27/20 08:26 Baso # (Auto) 0.1 K/mm3 (0.0-0.1) 07/27/20 08:26 Add Manual Diff Complete 07/13/20 08:31 Total Counted 100 07/13/20 08:31 Seg Neutrophils % 66.9 % (40.0-70.0) 07/27/20 08:26 Seg Neuts % (Manual) 96.0 % (40.0-70.0) H 07/13/20 08:31 Band Neutrophils % 0 % 07/13/20 08:31 Lymphocytes % (Manual) 2.0 % (13.4-35.0) L 07/13/20 08:31 Reactive Lymphs % (Man) 0 % 07/13/20 08:31 Monocytes % (Manual) 2.0 % (0.0-7.3) 07/13/20 08:31 Eosinophils % (Manual) 0 % (0.0-4.3) 07/13/20 08:31 Basophils % (Manual) 0 % (0.0-1.8) 07/13/20 08:31 Metamyelocytes % 0 % 07/13/20 08:31 Myelocytes % 0 % 07/13/20 08:31 Promyelocytes % 0 % 07/13/20 08:31 Blast Cells % 0 % 07/13/20 08:31 Nucleated RBC % Not Reportable 07/13/20 08:31 Seg Neutrophils # 7.1 K/mm3 (1.8-7.7) 07/27/20 08:26 Seg Neutrophils # Man 20.4 K/mm3 (1.8-7.7) H 07/13/20 08:31 Band Neutrophils # 0.0 K/mm3 07/13/20 08:31 Lymphocytes # (Manual) 0.4 K/mm3 (1.2-5.4) L 07/13/20 08:31 Abs React Lymphs (Man) 0.0 K/mm3 07/13/20 08:31 Monocytes # (Manual) 0.4 K/mm3 (0.0-0.8) 07/13/20 08:31 Eosinophils # (Manual) 0.0 K/mm3 (0.0-0.4) 07/13/20 08:31 Basophils # (Manual) 0.0 K/mm3 (0.0-0.1) 07/13/20 08:31 Metamyelocytes # 0.0 K/mm3 07/13/20 08:31 Myelocytes # 0.0 K/mm3 07/13/20 08:31 Promyelocytes # 0.0 K/mm3 07/13/20 08:31 Blast Cells # 0.0 K/mm3 07/13/20 08:31 WBC Morphology Not Reportable 07/13/20 08:31 Hypersegmented Neuts Not Reportable 07/13/20 08:31 Hyposegmented Neuts Not Reportable 07/13/20 08:31 Hypogranular Neuts Not Reportable 07/13/20 08:31 Smudge Cells Not Reportable 07/13/20 08:31 Toxic Granulation Not Reportable 07/13/20 08:31 Toxic Vacuolation Not Reportable 07/13/20 08:31 Dohle Bodies Not Reportable 07/13/20 08:31 Pelger-Huet Anomaly Not Reportable 07/13/20 08:31 Jason Rods Not Reportable 07/13/20 08:31 Platelet Estimate Consistent w auto 07/13/20 08:31 Clumped Platelets Not Reportable 07/13/20 08:31 Plt Clumps, EDTA Not Reportable 07/13/20 08:31 Large Platelets Not Reportable 07/13/20 08:31 Giant Platelets Not Reportable 07/13/20 08:31 Platelet Satelliting Not Reportable 07/13/20 08:31 Plt Morphology Comment Not Reportable 07/13/20 08:31 RBC Morphology Not Reportable 07/13/20 08:31 Dimorphic RBCs Not Reportable 07/13/20 08:31 Polychromasia Not Reportable 07/13/20 08:31 Hypochromasia Not Reportable 07/13/20 08:31 Poikilocytosis Not Reportable 07/13/20 08:31 Anisocytosis Not Reportable 07/13/20 08:31 Microcytosis Not Reportable 07/13/20 08:31 Macrocytosis Not Reportable 07/13/20 08:31 Spherocytes Not Reportable 07/13/20 08:31 Pappenheimer Bodies Not Reportable 07/13/20 08:31 Sickle Cells Not Reportable 07/13/20 08:31 Target Cells Not Reportable 07/13/20 08:31 Tear Drop Cells Not Reportable 07/13/20 08:31 Ovalocytes Not Reportable 07/13/20 08:31 Stomatocytes Few 07/13/20 08:31 Helmet Cells Not Reportable 07/13/20 08:31 Sinclair-Front Royal Bodies Not Reportable 07/13/20 08:31 Orma Rings Not Reportable 07/13/20 08:31 Izabella Cells Not Reportable 07/13/20 08:31 Bite Cells Not Reportable 07/13/20 08:31 Crenated Cell Not Reportable 07/13/20 08:31 Elliptocytes Not Reportable 07/13/20 08:31 Acanthocytes (Spur) Not Reportable 07/13/20 08:31 Rouleaux Not Reportable 07/13/20 08:31 Hemoglobin C Crystals Not Reportable 07/13/20 08:31 Schistocytes Not Reportable 07/13/20 08:31 Malaria parasites Not Reportable 07/13/20 08:31 Josue Bodies Not Reportable 07/13/20 08:31 Hem Pathologist Commnt No 07/13/20 08:31 PT 11.8 Sec. (12.2-14.9) L 06/22/20 14:29 INR 0.88 (0.87-1.13) 06/22/20 14:29 APTT 23.5 Sec. (24.2-36.6) L 06/22/20 14:29 D-Dimer 1887.82 ng/mlDDU (0-234) H 05/20/20 08:16 Heparin Anti-Xa Level 0.37 U.I./ml (0.3-0.7) 07/02/20 16:08 ABG pH 7.477 (7.320-7.450) H 07/13/20 13:52 POC ABG pCO2 54.4 mmHg (32.0-48.0) H 07/13/20 13:52 ABG pCO2 53.1 mm Hg 07/08/20 Unknown POC ABG pO2 126.8 mmHg (83-108) H 07/13/20 13:52 ABG pO2 75.3 mm Hg (80.0-90.0) L 07/08/20 Unknown POC ABG HCO3 39.3 07/13/20 13:52 ABG HCO3 34.3 mmol/L (20.0-26.0) H 07/08/20 Unknown ABG O2 Saturation 96.5 % (95.0-99.0) 07/08/20 Unknown ABG O2 Content 13.5 (0.0-44) 07/08/20 Unknown POC ABG Base Excess 13.8 07/13/20 13:52 ABG Base Excess 8.7 mmol/L (-2.0-3.0) H 07/08/20 Unknown ABG Hemoglobin 11.5 (12.0-17.5) L 07/13/20 13:52 ABG Oxyhemoglobin 97.7 (94-98) 07/13/20 13:52 ABG Carboxyhemoglobin 2.4 % (0.0-5.0) 07/08/20 Unknown ABG Methemoglobin 0 (0.0-1.5) 07/13/20 13:52 ABG Sodium 136.2 mmol/L (136.0-145.0) 07/13/20 13:52 ABG Potassium 3.2 mmol/L (3.40-4.50) L 07/13/20 13:52 ABG Chloride 92.0 mmol/L (98-107) L 07/13/20 13:52 ABG Glucose 169 mg/dL (65-95) H 07/13/20 13:52 Oxyhemoglobin 93.7 % (95.0-99.0) L 07/08/20 Unknown Carboxyhemoglobin 1.2 (0.5-1.5) 07/13/20 13:52 FiO2 45 07/13/20 13:52 Sodium 143 mmol/L (137-145) 07/27/20 08:26 Potassium 3.6 mmol/L (3.6-5.0) 07/27/20 08:26 Chloride 97.9 mmol/L (98-107) L 07/27/20 08:26 Carbon Dioxide 37 mmol/L (22-30) H D 07/27/20 08:26 Anion Gap 12 mmol/L 07/27/20 08:26 BUN 9 mg/dL (9-20) 07/27/20 08:26 Creatinine 0.4 mg/dL (0.8-1.3) L 07/27/20 08:26 Estimated GFR > 60 ml/min 07/27/20 08:26 BUN/Creatinine Ratio 23 % 07/27/20 08:26 Glucose 115 mg/dL (75-100) H 07/27/20 08:26 POC Glucose 94 mg/dL (70-105) 07/30/20 06:10 Lactic Acid 0.80 mmol/L (0.7-2.0) 07/13/20 15:45 Calcium 9.6 mg/dL (8.4-10.2) 07/27/20 08:26 Phosphorus 3.10 mg/dL (2.5-4.5) 06/15/20 04:00 Magnesium 2.00 mg/dL (1.7-2.3) 07/24/20 05:05 Ferritin 1496.0 ng/mL (30.0-300.0) H 06/14/20 11:50 Total Bilirubin 0.20 mg/dL (0.1-1.2) 07/23/20 05:58 Direct Bilirubin 0.6 mg/dL (0-0.2) H 05/11/20 07:30 Indirect Bilirubin 0.9 mg/dL 05/11/20 07:30 AST 18 units/L (5-40) 07/23/20 05:58 ALT 55 units/L (7-56) 07/23/20 05:58 Alkaline Phosphatase 67 units/L (35-129) 07/23/20 05:58 Lactate Dehydrogenase 705 units/L (91-180) H 05/20/20 08:16 Troponin T 0.015 ng/mL (0.00-0.029) 07/07/20 10:00 C-Reactive Protein 3.10 mg/dL (0.00-1.30) H 05/20/20 08:16 Total Protein 6.4 g/dL (6.3-8.2) 07/23/20 05:58 Albumin 3.5 g/dL (3.9-5) L 07/23/20 05:58 Albumin/Globulin Ratio 1.2 % 07/23/20 05:58 Triglycerides 452 mg/dL (2-149) H 06/30/20 07:00 Lipase 86 units/L (13-60) H 06/29/20 09:36 Procalcitonin 2.15 ng/mL (<0.15) 07/15/20 05:31 Arterial Blood Glucose 169 mg/dL (65-95) H 07/13/20 13:52 Arterial Blood Ionized Calcium 4.8 mg/dL (4.6-5.3) 07/13/20 13:52 Urine Color Fauzia (Yellow) 05/10/20 Unknown Urine Turbidity Clear (Clear) 05/10/20 Unknown Urine pH 5.0 (5.0-7.0) 05/10/20 Unknown Ur Specific Needles 1.019 (1.003-1.030) 05/10/20 Unknown Urine Protein 100 mg/dl mg/dL (Negative) 05/10/20 Unknown Urine Glucose (UA) Neg mg/dL (Negative) 05/10/20 Unknown Urine Ketones Neg mg/dL (Negative) 05/10/20 Unknown Urine Blood Lg (Negative) 05/10/20 Unknown Urine Nitrite Neg (Negative) 05/10/20 Unknown Urine Bilirubin Neg (Negative) 05/10/20 Unknown Urine Urobilinogen 2.0 mg/dL (<2.0) 05/10/20 Unknown Ur Leukocyte Esterase Neg (Negative) 05/10/20 Unknown Urine WBC (Auto) 11.0 /HPF (0.0-6.0) H 05/10/20 Unknown Urine RBC (Auto) 2.0 /HPF (0.0-6.0) 05/10/20 Unknown U Epithel Cells (Auto) 1.0 /HPF (0-13.0) 05/10/20 Unknown Urine Bacteria (Auto) 1+ /HPF (Negative) 05/10/20 Unknown Urine Mucus Few /HPF 05/10/20 Unknown Plasma/Serum Alcohol < 0.01 % (0-0.07) 05/09/20 14:20 Coronavirus (PCR) Negative (Negative) 06/30/20 10:28 Hepatitis A Ab Total Nonreactive (Nonreactive) 07/09/20 Unknown Hep B Core Total Ab Nonreactive (Nonreactive) 07/09/20 Unknown Hepatitis C RNA Quant See scanned result 07/09/20 Unknown SARS-CoV-2 IgG Ab Reactive (NonReactive) A 05/11/20 07:30 Blood Type B POSITIVE 06/21/20 14:18 Antibody Screen Negative 06/21/20 14:18 Crossmatch See Detail 06/21/20 14:18 - Diagnostic Impressions Diagnostic Impressions: Echocardiogram 05/20/20 13:02 Transthoracic Echocardiogram Indication: CHF BP: 97/73 Conclusions *The study quality is technically very difficult and limited. *The left ventricular chamber size, wall thickness and systolic function are within normal limits. There are no wall motion abnormalities observed. Ejection fraction is normal. *The estimated ejection fraction is 60-65%. *The pericardium appears normal. Findings Procedure Info: The study quality is technically difficult. Left Ventricle: The left ventricular chamber size, wall thickness and systolic function are within normal limits. There are no wall motion abnormalities observed. Ejection fraction is normal. The estimated ejection fraction is 60-65%. Abnormal left ventricular diastolic filling is observed, consistent with impaired relaxation. Left Atrium: The left atrium is normal in size with no visual thrombus identified. Right Ventricle: The right ventricle is not well visualized. Right Atrium: The right atrium is not well visualized. Aortic Valve: The aortic valve is trileaflet. The leaflets are thin with normal excursion. There is no aortic stenosis or regurgitation present. Mitral Valve: The mitral valve appears normal in structure and function. Tricuspid Valve: The tricuspid valve appears normal in structure and function. Unable to estimate the right ventricular systolic pressure. Pulmonic Valve: The pulmonic valve is not well visualized. There is no evidence of pulmonic regurgitation. There is no pulmonic stenosis. Pericardium: The pericardium appears normal. Pulmonary Artery: The main pulmonary artery is not well visualized. Venous: The inferior vena cava appears normal in size. Measurements Chambers 2D Name Value Normal Range IVSd (2D) 0.83 cm (0.6 - 1.1) LVPWd (2D) 0.83 cm (0.6 - 1.1) LVIDd (2D) 3.88 cm (3.7 - 5.6) LVIDs (2D) 2.46 cm (2 - 3.8) LV FS (2D) 36.52 % - EF Teichholz (2D) 66.97 % - Ao root diameter (2D) 3.47 cm (2 - 3.7) Volumes/Mass Name Value Normal Range LA ESV SP 4CH (A/L) 22.4 ml - LA ESV SP 2CH (A/L) 22.89 ml - LA ESV BP (A/L) 23.06 ml - LA ESV SP 4CH (MOD) 21.09 ml - LA ESV SP 2CH (MOD) 22.44 ml - Diastolic/Systolic Function Name Value Normal Range MV E-wave Vmax 0.48 m/sec - MV deceleration time 156.3 msec - MV A-wave Vmax 0.59 m/sec - MV E:A ratio 0.81 ratio - Aortic Valve Name Value Normal Range AV Vmax 0.97 m/sec - AV VTI 14.49 cm - AV peak gradient 3.73 mmHg - AV mean gradient 1.89 mmHg - LVOT diameter 2.09 cm - LVOT Vmax 0.72 m/sec - LVOT VTI 10.21 cm - LVOT peak gradient 2.05 mmHg - LVOT mean gradient 1.03 mmHg - SV LVOT 35.17 ml - INNA (continuity Vmax) 2.55 cm2 - INNA (continuity VTI) 2.43 cm2 - Tricuspid Valve Name Value Normal Range TV E-wave Vmax 0.37 m/sec - Pulmonic Valve/Qp:Qs Name Value Normal Range PV Vmax 0.72 m/sec - PV peak gradient 2.06 mmHg - RVOT Vmax 0.85 m/sec - RVOT VTI 9.89 cm - RVOT peak gradient 2.9 mmHg - PV acceleration time 72.31 msec - Cantor/IV: Voiding Method Bedpan IV Catheter Type [Right Wrist] INT / Saline Lock IV Catheter Type [Right Upper Peripheral IV arm] IV Catheter Type [Right CVL Internal Jugular] IV Catheter Type [Right Peripheral IV Forearm] IV Catheter Type [Left Forearm INT / Saline Lock ] IV Catheter Type [Left Wrist] INT / Saline Lock IV Catheter Type [Right Hand] INT / Saline Lock IV Catheter Type [Left Hand] INT / Saline Lock IV Catheter Type [Left Peripheral IV Antecubital] Active Medications - Current Medications Current Medications: Generic Name Dose Route Start Last Admin Trade Name Allq PRN Reason Stop Dose Admin Alprazolam 0.25 mg 05/20/20 17:53 07/26/20 09:37 Alprazolam 0.25 Mg Tab PO 0.25 mg Q8H PRN Administration Anxiety Lipase/Protease/Amylase 1 each 05/22/20 13:01 Lipase 10,500/Protease 25,000/Amylase 43,750 (Units) Dr Newell FEEDTUBE PRN PRN For Clogged Feeding Tube Bisacodyl 10 mg 07/14/20 11:00 Bisacodyl 10 Mg Rect Supp MA BID PRN Laxative Effect Enoxaparin Sodium 40 mg 07/29/20 22:00 07/29/20 21:54 Enoxaparin 40 Mg/0.4 Ml Inj SUB-Q 40 mg QDAY@2200 DESIRE Administration Protocol Folic Acid 1 mg 05/09/20 15:36 07/29/20 09:56 Folic Acid 1 Mg Tab PO 1 mg QDAY DESIRE Administration Guaifenesin 600 mg 07/19/20 23:00 07/29/20 21:55 Guaifenesin Er 600 Mg Tab PO 600 mg BID DESIRE Administration Hydrophilic Ointment 1 applic 05/21/20 20:33 Lip Therapy Vaseline TP Q2HR PRN Dry Lips Insulin Human Lispro 0 unit 05/29/20 14:00 07/30/20 06:13 Insulin Lispro 100 Unit/Ml Vial 3 Ml SUB-Q Not Given Q6H [facility] Protocol Lansoprazole 30 mg 06/28/20 10:00 07/29/20 09:56 Lansoprazole 30 Mg Solutab FEEDTUBE 30 mg QDAY DESIRE Administration Lorazepam 1 mg 07/04/20 01:10 07/18/20 11:57 Lorazepam 2 Mg/Ml Vial IV 1 mg Q1HR PRN Administration agitation Methylprednisolone Sodium Succinate 20 mg 07/15/20 10:00 07/29/20 10:05 Methylprednisolone Sod Succinate 40 Mg/1 Ml Inj IV 20 mg Q24HR DESIRE Administration Metoprolol Tartrate 5 mg 07/02/20 17:17 07/08/20 14:38 Metoprolol Tartrate 5 Mg/5 Ml Inj IV 5 mg Q6HR PRN Administration Tachyarrhythmias Metoprolol Tartrate 12.5 mg 07/17/20 12:00 07/29/20 23:59 Metoprolol Tartrate 25 Mg Tab PO 12.5 mg BID DESIRE Administration Midodrine 10 mg 06/30/20 16:00 07/30/20 08:48 Midodrine 5 Mg Tab PO 10 mg TID@0800,1200,1600 DESIRE Administration Multi-Ingred Cream/Lotion/Oil/Oint 1 applic 05/21/20 20:33 Mineral Oil/Petrolatum, White Ophth Oint 3.5 Gm OU Q4HR PRN Dry Eye(s) Olanzapine 5 mg 07/17/20 22:00 07/29/20 21:54 Olanzapine 5 Mg Tab PO 5 mg QHS DESIRE Administration Phenobarbital 32.4 mg 07/04/20 22:00 07/29/20 21:54 Phenobarbital 32.4 Mg Tab PO 32.4 mg BID DESIRE Administration Quetiapine Fumarate 200 mg 07/16/20 10:00 07/29/20 10:00 Quetiapine 200 Mg Tab PO 200 mg QAM DESIRE Administration Senna 17.2 mg 07/14/20 11:00 Sennosides 8.6 Mg Tab PO BID PRN Laxative Effect Nutrition/Malnutrition Assess - Dietary Evaluation Nutrition/Malnutrition Findings: Nutrition Notes Start: 05/17/20 14:10 Freq: Status: Active Protocol: Document 07/23/20 14:39 CW (Rec: 07/23/20 14:49 CW [email or web address]) Co-Sign 07/23/20 14:39 LP Nutrition Notes Initial or Follow up Reassessment Current Diagnosis Acute Kidney Injury,Decubitus( Pressure Ulcer),Sepsis, Respiratory Failure Other Pertinent Diagnosis Bilat pneu, COVID-19 (+), EtOH dependence Current Diet Regular diet Labs/Tests K 2.9 BG 199 Pertinent Medications KCl 120 mEq Humalog solumedrol Height 6 ft Weight 107.5 kg [place] Body Weight (kg) 80.90 BMI 32.1 Weight Status Obese Subjective/Other Information FU for TF mauricio. Per chart, pt remains extubated with diet advancement. Per RN pt is consuming 100% PO without chewing or swallowing difficulties. Percent of energy/protein needs met: 100%/100% Burn Absent Trauma Absent GI Symptoms None Current % PO Good (75-100%) Minimum of two criteria No physical signs of malnutrition #2 Nutrition Diagnosis Increased nutrient needs ( specify in comment below) Diagnosis Progress(for reassessment Continues documentation) #1 Nutrition Diagnosis Inadequate oral intake As Evidenced by Signs and Symptoms Pt extubated and diet advanced Diagnosis Progress(for reassessment Improved documentation) Is patient on ventilator? No Is Patient Ambulatory and/or Out of Bed No [facility] 2365.212 Kcal/Kg value to use for calculation 16 Approximate Energy Requirements Using 1720 kcal/Kg Calculation Used for Recommendations Kcal/kg Additional Notes Protein: 134-161 g (1.25-1.5 g /kg) Fluid: 1 ml/kcal Nutrition Intervention Change Diet Order: Continue diet Nutrition Support: DC Goal #1 Meet at least 75% protein and energy needs via PO Anticipated Discharge Needs: Regular diet Follow-Up By: 07/30/20 Additional Comments FU for intakes
[2020-07-30] MEDS: LANSOPRAZOLE 30 MG SOLUTAB FEEDTUBE SCH (11:01)
[2020-07-30] MEDS: PHENobarbital 32.4 MG TAB PO SCH ×2 (11:01→21:56)
[2020-07-30] MEDS: FOLIC ACID 1 MG TAB PO SCH (11:01)
[2020-07-30] MEDS: METOPROLOL TARTRATE 25 MG TAB PO SCH ×2 (11:01→21:56)
[2020-07-30] MEDS: guaiFENesin ER 600 MG TAB PO SCH ×2 (11:01→21:56)
[2020-07-30] MEDS: methylPREDNISolone Sod Succinate 40 MG/1 ML INJ IV SCH (11:02)
[2020-07-30] MEDS: QUEtiapine 200 MG TAB PO SCH (11:02)
[2020-07-30] MEDS ORDERED: INSULIN LISPRO 100 UNIT/ML SUB-Q ONE ×2 (17:26→17:27)
[2020-07-30] MEDS: ENOXAPARIN 40 MG/0.4 ML INJ SUB-Q SCH (21:56)
[2020-07-31] MEDS: INSULIN LISPRO 100 UNIT/ML VIAL 3 mL SUB-Q SCH
[2020-07-31] MEDS: INSULIN LISPRO 100 UNIT/ML SUB-Q SCH ×4 (08:08→22:02)
[2020-07-31] MEDS: MIDODRINE 5 MG TAB PO SCH ×3 (09:01→17:27)
[2020-07-31] MEDS: METOPROLOL TARTRATE 25 MG TAB PO SCH ×2 (10:02→22:01)
[2020-07-31] MEDS: PHENobarbital 32.4 MG TAB PO SCH ×2 (10:02→22:01)
[2020-07-31] MEDS: FOLIC ACID 1 MG TAB PO SCH (10:02)
[2020-07-31] MEDS: guaiFENesin ER 600 MG TAB PO SCH ×2 (10:02→22:01)
[2020-07-31] MEDS: QUEtiapine 200 MG TAB PO SCH (10:03)
[2020-07-31] MEDS: methylPREDNISolone Sod Succinate 40 MG/1 ML INJ IV SCH (10:04)
[2020-07-31] MEDS: LANSOPRAZOLE 30 MG SOLUTAB FEEDTUBE SCH (10:09)
--- NOTE | 2020-07-31 12:04 | Progress Note ---
Assessment and Plan Patient Sleeping. Patient is on BIPAP 14/8, rate 20,FIO2 30% and O2 saturation running 97%. Patient tolerating BIPAP good. Patient afebrile and has no leukocytosis. Patients D dimer 1887. 82. Ferritin 1496. LDH 705. C reactive protein 3.1 Chest xray 05/17/20 reported Persistent diffuse patchy bilateral airspace disease. Apparent interval worsening Repeat chest xray 07/19/20 reported Bilateral pulmonary opacities persist. No pneumothorax. Patient finished course of REMDESIVIR, ceftrioxane and zithromax . Chest xray done to day 07/21/20 reported Stable diffuse mild airspace disease bilaterally. Patient finished course of cefepime. Patient has CTA of chest reported No PE. reported extensive bilateral pulmonary infiltrates. Patient is on PO prednisone. ,and S/C Lovenox and Prevacid. - Patient Problems (1) Acute respiratory failure due to COVID-19 Current Visit: Yes Status: Acute Plan to address problem: Patient presently sleeping on BIPAP 14/8, rate 20, FIO2 30%. Continue PO Prednisone. Convert aerosol treatments to metered dose inhalers Continue S/C Lovenox. Continue prevacid. Patient finished course of REMDESIVIR, Ceftrioxana and zithromax and cefepime. (2) Bilateral pneumonia Current Visit: Yes Status: Acute Plan to address problem: Patient was on cefetrioxane, zithromax and cefepime. (3) Acute kidney injury (SEN) with acute tubular necrosis (ATN) Current Visit: Yes Status: Acute Plan to address problem: Management as per nephrology. (4) Alcohol dependence Current Visit: Yes Status: Acute Qualifiers: Substance use status: uncomplicated Qualified Code(s): F10.20 - Alcohol dependence, uncomplicated Plan to address problem: Management as per primary care. (5) Elevated liver function tests Current Visit: Yes Status: Acute Plan to address problem: Liver enzymes elevated either from his alcoholic abuse or from COVID 19 infection. Subjective Date of service: 07/31/20 Principal diagnosis: Ac hypoxemic resp failure; COVID-19; Severe Sepsis; Shaggy PNA; Alcohol Abuse Interval history: Patient Sleeping. Patient is on BIPAP 14/8, rate 20,FIO2 30% and O2 saturation running 97%. Patient tolerating BIPAP good. Patient afebrile and has no leukocytosis. Patients D dimer 1887. 82. Ferritin 1496. LDH 705. C reactive protein 3.1 Chest xray 05/17/20 reported Persistent diffuse patchy bilateral airspace dis ease. Apparent interval worsening Repeat chest xray 07/19/20 reported Bilateral pulmonary opacities persist. No pneumothorax. Patient finished course of REMDESIVIR, ceftrioxane and zithromax . Chest xray done to day 07/21/20 reported Stable diffuse mild airspace disease bilaterally. Patient finished course of cefepime. Patient has CTA of chest reported No PE. reported extensive bilateral pulmonary infiltrates. Patient is on PO prednisone ,and S/C Lovenox and Prevacid. Objective Vital Signs - 12hr 07/31/20 07/31/20 07/31/20 02:22 03:49 08:13 Temperature 99.0 F 98.6 F Pulse Rate 100 H 107 H Respiratory 26 H 19 16 Rate Blood Pressure 114/73 Blood Pressure 119/73 [Right] O2 Sat by Pulse 97 97 97 Oximetry 07/31/20 07/31/20 09:10 09:59 Temperature Pulse Rate Respiratory Rate Blood Pressure Blood Pressure [Right] O2 Sat by Pulse 99 94 Oximetry Constitutional: no acute distress, asleep Eyes: non-icteric ENT: oropharynx moist, other (extubated) Neck: supple, no JVD Effort: mildly labored Ascultation: Bilateral: diminished breath sounds, rhonchi (scant bases), other (r. chest tube) Percussion: Bilateral: not dull Cardiovascular: regular rate and rhythm, other (No R/M) Gastrointestinal: normoactive bowel sounds, soft, non-tender, non-distended (protuberant) Integumentary: normal Extremities: no cyanosis, no edema, pulses normal, no ischemia or petechiae Neurologic: non-focal exam (non focal grossly; weak), pupils equal and round, CN II-XII normal, motor strength normal and (weak ) Psychiatric: mood appropriate, affect normal CBC and BMP: 07/27/20 08:26 07/27/20 08:26 ABG, PT/INR, D-dimer: ABG ABG pH 7.477 (7.320-7.450) H 07/13/20 13:52 POC ABG pCO2 54.4 mmHg (32.0-48.0) H 07/13/20 13:52 ABG pCO2 53.1 mm Hg 07/08/20 Unknown POC ABG pO2 126.8 mmHg (83-108) H 07/13/20 13:52 ABG pO2 75.3 mm Hg (80.0-90.0) L 07/08/20 Unknown POC ABG HCO3 39.3 07/13/20 13:52 ABG O2 Saturation 96.5 % (95.0-99.0) 07/08/20 Unknown PT/INR, D-dimer PT 11.8 Sec. (12.2-14.9) L 06/22/20 14:29 INR 0.88 (0.87-1.13) 06/22/20 14:29 D-Dimer 1887.82 ng/mlDDU (0-234) H 05/20/20 08:16 Abnormal lab findings: Abnormal Labs 05/09/20 05/09/20 05/09/20 12:59 12:59 12:59 WBC 11.8 H RBC Hgb Hct MCV 96 H MCH 34 H MCHC 35 H RDW Lymph % (Auto) 6.9 L [place] % (Auto) Lymph # (Auto) 0.8 L [place] # (Auto) Baso # (Auto) Seg Neutrophils % 87.5 H Seg Neuts % (Manual) Lymphocytes % (Manual) Nucleated RBC % Seg Neutrophils # 10.3 H Seg Neutrophils # Man Lymphocytes # (Manual) Monocytes # (Manual) Eosinophils # (Manual) PT INR APTT D-Dimer Heparin Anti-Xa Level ABG pH POC ABG pCO2 POC ABG pO2 ABG pO2 ABG HCO3 ABG O2 Saturation ABG Base Excess ABG Hemoglobin ABG Oxyhemoglobin ABG Sodium ABG Potassium ABG Chloride ABG Glucose Oxyhemoglobin Carboxyhemoglobin Sodium 130 L Potassium 3.5 L Chloride 86.4 L Carbon Dioxide BUN 33 H Creatinine 2.3 H Glucose 156 H POC Glucose Lactic Acid Calcium Magnesium Ferritin Total Bilirubin 3.40 H Direct Bilirubin 1.7 H AST 385 H ALT 134 H Alkaline Phosphatase Lactate Dehydrogenase C-Reactive Protein Total Protein Albumin 3.0 L Triglycerides Lipase Arterial Blood Glucose Arterial Blood Ionized Calcium Urine WBC (Auto) Coronavirus (PCR) SARS-CoV-2 IgG Ab Crossmatch 05/09/20 05/09/20 05/09/20 12:59 12:59 12:59 WBC RBC Hgb Hct MCV MCH MCHC RDW Lymph % (Auto) [place] % (Auto) Lymph # (Auto) [place] # (Auto) Baso # (Auto) Seg Neutrophils % Seg Neuts % (Manual) Lymphocytes % (Manual) Nucleated RBC % Seg Neutrophils # Seg Neutrophils # Man Lymphocytes # (Manual) Monocytes # (Manual) Eosinophils # (Manual) PT INR APTT D-Dimer 3242.51 H Heparin Anti-Xa Level ABG pH POC ABG pCO2 POC ABG pO2 ABG pO2 ABG HCO3 ABG O2 Saturation ABG Base Excess ABG Hemoglobin ABG Oxyhemoglobin ABG Sodium ABG Potassium ABG Chloride ABG Glucose Oxyhemoglobin Carboxyhemoglobin Sodium Potassium Chloride Carbon Dioxide BUN Creatinine Glucose 158 H POC Glucose Lactic Acid 3.50 H* Calcium Magnesium Ferritin Total Bilirubin Direct Bilirubin AST ALT Alkaline Phosphatase Lactate Dehydrogenase 2166 H C-Reactive Protein 39.00 H Total Protein Albumin Triglycerides Lipase Arterial Blood Glucose Arterial Blood Ionized Calcium Urine WBC (Auto) Coronavirus (PCR) SARS-CoV-2 IgG Ab Crossmatch 05/09/20 05/09/20 05/09/20 12:59 14:20 14:20 WBC RBC Hgb Hct MCV MCH MCHC RDW Lymph % (Auto) [place] % (Auto) Lymph # (Auto) [place] # (Auto) Baso # (Auto) Seg Neutrophils % Seg Neuts % (Manual) Lymphocytes % (Manual) Nucleated RBC % Seg Neutrophils # Seg Neutrophils # Man Lymphocytes # (Manual) Monocytes # (Manual) Eosinophils # (Manual) PT INR APTT D-Dimer 2861.78 H Heparin Anti-Xa Level ABG pH POC ABG pCO2 POC ABG pO2 ABG pO2 ABG HCO3 ABG O2 Saturation ABG Base Excess ABG Hemoglobin ABG Oxyhemoglobin ABG Sodium ABG Potassium ABG Chloride ABG Glucose Oxyhemoglobin Carboxyhemoglobin Sodium Potassium Chloride Carbon Dioxide BUN Creatinine Glucose POC Glucose Lactic Acid 2.20 H* Calcium Magnesium Ferritin 72424.0 H Total Bilirubin Direct Bilirubin AST ALT Alkaline Phosphatase Lactate Dehydrogenase C-Reactive Protein Total Protein Albumin Triglycerides Lipase Arterial Blood Glucose Arterial Blood Ionized Calcium Urine WBC (Auto) Coronavirus (PCR) SARS-CoV-2 IgG Ab Crossmatch 05/09/20 05/09/20 05/09/20 14:20 14:20 15:56 WBC RBC Hgb Hct MCV MCH MCHC RDW Lymph % (Auto) [place] % (Auto) Lymph # (Auto) [place] # (Auto) Baso # (Auto) Seg Neutrophils % Seg Neuts % (Manual) Lymphocytes % (Manual) Nucleated RBC % Seg Neutrophils # Seg Neutrophils # Man Lymphocytes # (Manual) Monocytes # (Manual) Eosinophils # (Manual) PT INR APTT D-Dimer Heparin Anti-Xa Level ABG pH POC ABG pCO2 POC ABG pO2 57.3 L ABG pO2 ABG HCO3 ABG O2 Saturation ABG Base Excess ABG Hemoglobin ABG Oxyhemoglobin 86.3 L ABG Sodium 129.9 L ABG Potassium ABG Chloride ABG Glucose 146 H Oxyhemoglobin Carboxyhemoglobin Sodium Potassium Chloride Carbon Dioxide BUN Creatinine Glucose 143 H POC Glucose Lactic Acid Calcium Magnesium Ferritin 31409.0 H Total Bilirubin Direct Bilirubin AST ALT Alkaline Phosphatase Lactate Dehydrogenase 1953 H C-Reactive Protein 33.50 H Total Protein Albumin Triglycerides Lipase Arterial Blood Glucose 146 H Arterial Blood Ionized Calcium 3.9 L Urine WBC (Auto) Coronavirus (PCR) SARS-CoV-2 IgG Ab Crossmatch 05/10/20 05/10/20 05/10/20 10:32 10:32 18:50 WBC 15.4 H RBC Hgb Hct MCV 97 H MCH 33 H MCHC RDW 13.1 L Lymph % (Auto) [place] % (Auto) Lymph # (Auto) [place] # (Auto) Baso # (Auto) Seg Neutrophils % Seg Neuts % (Manual) 89.0 H Lymphocytes % (Manual) 8.0 L Nucleated RBC % Seg Neutrophils # Seg Neutrophils # Man 13.7 H Lymphocytes # (Manual) Monocytes # (Manual) Eosinophils # (Manual) PT INR APTT D-Dimer Heparin Anti-Xa Level ABG pH POC ABG pCO2 POC ABG pO2 ABG pO2 ABG HCO3 ABG O2 Saturation ABG Base Excess ABG Hemoglobin ABG Oxyhemoglobin ABG Sodium ABG Potassium ABG Chloride ABG Glucose Oxyhemoglobin Carboxyhemoglobin Sodium 136 L Potassium Chloride 97.4 L Carbon Dioxide BUN 37 H Creatinine 1.7 H Glucose 209 H POC Glucose Lactic Acid Calcium Magnesium Ferritin > 2000.0 H Total Bilirubin Direct Bilirubin AST ALT Alkaline Phosphatase Lactate Dehydrogenase C-Reactive Protein Total Protein Albumin Triglycerides Lipase Arterial Blood Glucose Arterial Blood Ionized Calcium Urine WBC (Auto) Coronavirus (PCR) SARS-CoV-2 IgG Ab Crossmatch 05/10/20 05/10/20 05/10/20 18:50 19:00 Unknown WBC RBC Hgb Hct MCV MCH MCHC RDW Lymph % (Auto) [place] % (Auto) Lymph # (Auto) [place] # (Auto) Baso # (Auto) Seg Neutrophils % Seg Neuts % (Manual) Lymphocytes % (Manual) Nucleated RBC % Seg Neutrophils # Seg Neutrophils # Man Lymphocytes # (Manual) Monocytes # (Manual) Eosinophils # (Manual) PT INR APTT D-Dimer > 77574 H Heparin Anti-Xa Level ABG pH POC ABG pCO2 POC ABG pO2 ABG pO2 ABG HCO3 ABG O2 Saturation ABG Base Excess ABG Hemoglobin ABG Oxyhemoglobin ABG Sodium ABG Potassium ABG Chloride ABG Glucose Oxyhemoglobin Carboxyhemoglobin Sodium Potassium Chloride Carbon Dioxide BUN Creatinine Glucose POC Glucose Lactic Acid Calcium Magnesium Ferritin Total Bilirubin Direct Bilirubin AST ALT Alkaline Phosphatase Lactate Dehydrogenase 1879 H C-Reactive Protein 24.80 H Total Protein Albumin Triglycerides Lipase Arterial Blood Glucose Arterial Blood Ionized Calcium Urine WBC (Auto) 11.0 H Coronavirus (PCR) SARS-CoV-2 IgG Ab Crossmatch 05/10/20 05/11/20 05/11/20 Unknown 07:30 07:30 WBC RBC Hgb Hct MCV MCH MCHC RDW Lymph % (Auto) [place] % (Auto) Lymph # (Auto) [place] # (Auto) Baso # (Auto) Seg Neutrophils % Seg Neuts % (Manual) Lymphocytes % (Manual) Nucleated RBC % Seg Neutrophils # Seg Neutrophils # Man Lymphocytes # (Manual) Monocytes # (Manual) Eosinophils # (Manual) PT INR APTT D-Dimer > 2000 H Heparin Anti-Xa Level ABG pH POC ABG pCO2 POC ABG pO2 ABG pO2 ABG HCO3 ABG O2 Saturation ABG Base Excess ABG Hemoglobin ABG Oxyhemoglobin ABG Sodium ABG Potassium ABG Chloride ABG Glucose Oxyhemoglobin Carboxyhemoglobin Sodium Potassium Chloride 96.3 L Carbon Dioxide BUN 36 H Creatinine Glucose 161 H POC Glucose Lactic Acid Calcium 8.3 L Magnesium Ferritin Total Bilirubin 1.50 H Direct Bilirubin 0.6 H AST 178 H ALT 111 H Alkaline Phosphatase Lactate Dehydrogenase C-Reactive Protein Total Protein Albumin 3.0 L Triglycerides Lipase Arterial Blood Glucose Arterial Blood Ionized Calcium Urine WBC (Auto) Coronavirus (PCR) Positive A SARS-CoV-2 IgG Ab Crossmatch 05/11/20 05/11/20 05/11/20 07:30 07:30 07:30 WBC RBC Hgb Hct MCV MCH MCHC RDW Lymph % (Auto) [place] % (Auto) Lymph # (Auto) [place] # (Auto) Baso # (Auto) Seg Neutrophils % Seg Neuts % (Manual) Lymphocytes % (Manual) Nucleated RBC % Seg Neutrophils # Seg Neutrophils # Man Lymphocytes # (Manual) Monocytes # (Manual) Eosinophils # (Manual) PT INR APTT D-Dimer Heparin Anti-Xa Level ABG pH POC ABG pCO2 POC ABG pO2 ABG pO2 ABG HCO3 ABG O2 Saturation ABG Base Excess ABG Hemoglobin ABG Oxyhemoglobin ABG Sodium ABG Potassium ABG Chloride ABG Glucose Oxyhemoglobin Carboxyhemoglobin Sodium Potassium Chloride Carbon Dioxide BUN Creatinine Glucose POC Glucose Lactic Acid Calcium Magnesium Ferritin 98727.0 H Total Bilirubin Direct Bilirubin AST ALT Alkaline Phosphatase Lactate Dehydrogenase 1523 H C-Reactive Protein 12.90 H Total Protein Albumin Triglycerides Lipase Arterial Blood Glucose Arterial Blood Ionized Calcium Urine WBC (Auto) Coronavirus (PCR) SARS-CoV-2 IgG Ab Reactive A Crossmatch 05/13/20 05/13/20 05/15/20 05:20 05:20 08:15 WBC RBC Hgb Hct MCV MCH MCHC RDW Lymph % (Auto) [place] % (Auto) Lymph # (Auto) [place] # (Auto) Baso # (Auto) Seg Neutrophils % Seg Neuts % (Manual) Lymphocytes % (Manual) Nucleated RBC % Seg Neutrophils # Seg Neutrophils # Man Lymphocytes # (Manual) Monocytes # (Manual) Eosinophils # (Manual) PT INR APTT D-Dimer > 16856 H 5318.28 H Heparin Anti-Xa Level ABG pH POC ABG pCO2 POC ABG pO2 ABG pO2 ABG HCO3 ABG O2 Saturation ABG Base Excess ABG Hemoglobin ABG Oxyhemoglobin ABG Sodium ABG Potassium ABG Chloride ABG Glucose Oxyhemoglobin Carboxyhemoglobin Sodium Potassium Chloride Carbon Dioxide 32 H BUN 30 H Creatinine Glucose 156 H POC Glucose Lactic Acid Calcium Magnesium 2.60 H Ferritin Total Bilirubin 1.40 H Direct Bilirubin AST 121 H ALT 119 H Alkaline Phosphatase Lactate Dehydrogenase 957 H C-Reactive Protein 4.00 H Total Protein Albumin 3.0 L Triglycerides Lipase Arterial Blood Glucose Arterial Blood Ionized Calcium Urine WBC (Auto) Coronavirus (PCR) SARS-CoV-2 IgG Ab Crossmatch 05/15/20 05/15/20 05/15/20 08:15 08:15 08:15 WBC 12.4 H RBC Hgb Hct MCV 98 H MCH 33 H MCHC RDW Lymph % (Auto) 9.7 L [place] % (Auto) Lymph # (Auto) [place] # (Auto) Baso # (Auto) Seg Neutrophils % 86.8 H Seg Neuts % (Manual) Lymphocytes % (Manual) Nucleated RBC % Seg Neutrophils # 10.8 H Seg Neutrophils # Man Lymphocytes # (Manual) Monocytes # (Manual) Eosinophils # (Manual) PT INR APTT D-Dimer Heparin Anti-Xa Level ABG pH POC ABG pCO2 POC ABG pO2 ABG pO2 ABG HCO3 ABG O2 Saturation ABG Base Excess ABG Hemoglobin ABG Oxyhemoglobin ABG Sodium ABG Potassium ABG Chloride ABG Glucose Oxyhemoglobin Carboxyhemoglobin Sodium Potassium Chloride 94.8 L Carbon Dioxide 32 H BUN 22 H Creatinine Glucose 115 H POC Glucose Lactic Acid Calcium 8.3 L Magnesium Ferritin 2494.0 H Total Bilirubin Direct Bilirubin AST 73 H ALT 121 H Alkaline Phosphatase Lactate Dehydrogenase 835 H C-Reactive Protein 3.40 H Total Protein 6.1 L Albumin 3.0 L Triglycerides Lipase Arterial Blood Glucose Arterial Blood Ionized Calcium Urine WBC (Auto) Coronavirus (PCR) SARS-CoV-2 IgG Ab Crossmatch 05/17/20 05/17/20 05/17/20 05:50 05:50 05:50 WBC RBC Hgb Hct MCV MCH MCHC RDW Lymph % (Auto) [place] % (Auto) Lymph # (Auto) [place] # (Auto) Baso # (Auto) Seg Neutrophils % Seg Neuts % (Manual) Lymphocytes % (Manual) Nucleated RBC % Seg Neutrophils # Seg Neutrophils # Man Lymphocytes # (Manual) Monocytes # (Manual) Eosinophils # (Manual) PT INR APTT D-Dimer 2911.42 H Heparin Anti-Xa Level ABG pH POC ABG pCO2 POC ABG pO2 ABG pO2 ABG HCO3 ABG O2 Saturation ABG Base Excess ABG Hemoglobin ABG Oxyhemoglobin ABG Sodium ABG Potassium ABG Chloride ABG Glucose Oxyhemoglobin Carboxyhemoglobin Sodium 136 L Potassium Chloride 96.0 L Carbon Dioxide 34 H BUN 22 H Creatinine Glucose 140 H POC Glucose Lactic Acid Calcium Magnesium Ferritin 2082.0 H Total Bilirubin Direct Bilirubin AST ALT 75 H Alkaline Phosphatase Lactate Dehydrogenase 601 H C-Reactive Protein 2.70 H Total Protein Albumin 2.9 L Triglycerides Lipase Arterial Blood Glucose Arterial Blood Ionized Calcium Urine WBC (Auto) Coronavirus (PCR) SARS-CoV-2 IgG Ab Crossmatch 05/17/20 05/18/20 05/20/20 05:50 12:22 08:16 WBC RBC Hgb Hct MCV 98 H MCH 33 H MCHC RDW Lymph % (Auto) 8.0 L [place] % (Auto) Lymph # (Auto) 0.8 L [place] # (Auto) Baso # (Auto) Seg Neutrophils % 89.3 H Seg Neuts % (Manual) Lymphocytes % (Manual) Nucleated RBC % Seg Neutrophils # 8.8 H Seg Neutrophils # Man Lymphocytes # (Manual) Monocytes # (Manual) Eosinophils # (Manual) PT INR APTT D-Dimer 1887.82 H Heparin Anti-Xa Level ABG pH POC ABG pCO2 POC ABG pO2 ABG pO2 ABG HCO3 ABG O2 Saturation ABG Base Excess ABG Hemoglobin ABG Oxyhemoglobin ABG Sodium ABG Potassium ABG Chloride ABG Glucose Oxyhemoglobin Carboxyhemoglobin Sodium Potassium Chloride Carbon Dioxide BUN Creatinine Glucose POC Glucose 178 H Lactic Acid Calcium Magnesium Ferritin Total Bilirubin Direct Bilirubin AST ALT Alkaline Phosphatase Lactate Dehydrogenase C-Reactive Protein Total Protein Albumin Triglycerides Lipase Arterial Blood Glucose Arterial Blood Ionized Calcium Urine WBC (Auto) Coronavirus (PCR) SARS-CoV-2 IgG Ab Crossmatch 05/20/20 05/20/20 05/21/20 08:16 08:16 21:10 WBC RBC Hgb Hct MCV MCH MCHC RDW Lymph % (Auto) [place] % (Auto) Lymph # (Auto) [place] # (Auto) Baso # (Auto) Seg Neutrophils % Seg Neuts % (Manual) Lymphocytes % (Manual) Nucleated RBC % Seg Neutrophils # Seg Neutrophils # Man Lymphocytes # (Manual) Monocytes # (Manual) Eosinophils # (Manual) PT INR APTT D-Dimer Heparin Anti-Xa Level ABG pH 7.483 H POC ABG pCO2 POC ABG pO2 ABG pO2 50.0 L ABG HCO3 27.0 H ABG O2 Saturation 86.2 L ABG Base Excess 3.7 H ABG Hemoglobin ABG Oxyhemoglobin ABG Sodium ABG Potassium ABG Chloride ABG Glucose Oxyhemoglobin 84.2 L Carboxyhemoglobin Sodium Potassium Chloride Carbon Dioxide BUN Creatinine Glucose POC Glucose Lactic Acid Calcium Magnesium Ferritin 1960.0 H Total Bilirubin Direct Bilirubin AST ALT Alkaline Phosphatase Lactate Dehydrogenase 705 H C-Reactive Protein 3.10 H Total Protein Albumin Triglycerides Lipase Arterial Blood Glucose Arterial Blood Ionized Calcium Urine WBC (Auto) Coronavirus (PCR) SARS-CoV-2 IgG Ab Crossmatch 05/22/20 05/22/20 05/22/20 04:01 07:53 07:53 WBC 19.2 H RBC Hgb Hct MCV 98 H MCH 34 H MCHC RDW Lymph % (Auto) [place] % (Auto) Lymph # (Auto) [place] # (Auto) Baso # (Auto) Seg Neutrophils % Seg Neuts % (Manual) 96.0 H Lymphocytes % (Manual) 1.0 L Nucleated RBC % Seg Neutrophils # Seg Neutrophils # Man 18.4 H Lymphocytes # (Manual) 0.2 L Monocytes # (Manual) Eosinophils # (Manual) PT INR APTT D-Dimer Heparin Anti-Xa Level ABG pH POC ABG pCO2 53.8 H POC ABG pO2 125.5 H ABG pO2 ABG HCO3 ABG O2 Saturation ABG Base Excess ABG Hemoglobin ABG Oxyhemoglobin ABG Sodium 131.8 L ABG Potassium 4.8 H ABG Chloride 94.0 L ABG Glucose 163 H Oxyhemoglobin Carboxyhemoglobin Sodium 131 L Potassium Chloride 93.4 L Carbon Dioxide BUN 40 H Creatinine Glucose 176 H POC Glucose Lactic Acid Calcium Magnesium 2.70 H Ferritin Total Bilirubin 1.80 H Direct Bilirubin AST 45 H ALT 116 H Alkaline Phosphatase 181 H Lactate Dehydrogenase C-Reactive Protein Total Protein Albumin 2.6 L Triglycerides Lipase Arterial Blood Glucose 163 H Arterial Blood Ionized Calcium 4.5 L Urine WBC (Auto) Coronavirus (PCR) SARS-CoV-2 IgG Ab Crossmatch 05/23/20 05/24/20 05/24/20 04:17 03:07 04:08 WBC RBC Hgb Hct MCV MCH MCHC RDW Lymph % (Auto) [place] % (Auto) Lymph # (Auto) [place] # (Auto) Baso # (Auto) Seg Neutrophils % Seg Neuts % (Manual) Lymphocytes % (Manual) Nucleated RBC % Seg Neutrophils # Seg Neutrophils # Man Lymphocytes # (Manual) Monocytes # (Manual) Eosinophils # (Manual) PT INR APTT D-Dimer Heparin Anti-Xa Level ABG pH 7.328 L POC ABG pCO2 POC ABG pO2 ABG pO2 72.8 L 73.4 L ABG HCO3 31.0 H 34.0 H ABG O2 Saturation 93.5 L ABG Base Excess 3.5 H 7.7 H ABG Hemoglobin 13.3 L 12.1 L ABG Oxyhemoglobin ABG Sodium ABG Potassium ABG Chloride ABG Glucose Oxyhemoglobin 91.5 L 94.3 L Carboxyhemoglobin Sodium Potassium Chloride Carbon Dioxide BUN Creatinine Glucose POC Glucose 155 H Lactic Acid Calcium Magnesium Ferritin Total Bilirubin Direct Bilirubin AST ALT Alkaline Phosphatase Lactate Dehydrogenase C-Reactive Protein Total Protein Albumin Triglycerides Lipase Arterial Blood Glucose Arterial Blood Ionized Calcium Urine WBC (Auto) Coronavirus (PCR) SARS-CoV-2 IgG Ab Crossmatch 05/24/20 05/24/20 05/24/20 09:33 12:21 17:52 WBC RBC Hgb Hct MCV MCH MCHC RDW Lymph % (Auto) [place] % (Auto) Lymph # (Auto) [place] # (Auto) Baso # (Auto) Seg Neutrophils % Seg Neuts % (Manual) Lymphocytes % (Manual) Nucleated RBC % Seg Neutrophils # Seg Neutrophils # Man Lymphocytes # (Manual) Monocytes # (Manual) Eosinophils # (Manual) PT INR APTT D-Dimer Heparin Anti-Xa Level ABG pH POC ABG pCO2 POC ABG pO2 ABG pO2 ABG HCO3 ABG O2 Saturation ABG Base Excess ABG Hemoglobin ABG Oxyhemoglobin ABG Sodium ABG Potassium ABG Chloride ABG Glucose Oxyhemoglobin Carboxyhemoglobin Sodium Potassium Chloride Carbon Dioxide 34 H D BUN 28 H Creatinine 0.7 L Glucose 168 H POC Glucose 173 H 164 H Lactic Acid Calcium Magnesium Ferritin Total Bilirubin Direct Bilirubin AST ALT Alkaline Phosphatase Lactate Dehydrogenase C-Reactive Protein Total Protein Albumin Triglycerides Lipase Arterial Blood Glucose Arterial Blood Ionized Calcium Urine WBC (Auto) Coronavirus (PCR) SARS-CoV-2 IgG Ab Crossmatch 05/24/20 05/25/20 05/25/20 23:47 04:29 05:46 WBC RBC Hgb Hct MCV MCH MCHC RDW Lymph % (Auto) [place] % (Auto) Lymph # (Auto) [place] # (Auto) Baso # (Auto) Seg Neutrophils % Seg Neuts % (Manual) Lymphocytes % (Manual) Nucleated RBC % Seg Neutrophils # Seg Neutrophils # Man Lymphocytes # (Manual) Monocytes # (Manual) Eosinophils # (Manual) PT INR APTT D-Dimer Heparin Anti-Xa Level ABG pH POC ABG pCO2 68.6 H POC ABG pO2 ABG pO2 ABG HCO3 ABG O2 Saturation ABG Base Excess ABG Hemoglobin ABG Oxyhemoglobin ABG Sodium ABG Potassium 4.7 H ABG Chloride ABG Glucose 226 H Oxyhemoglobin Carboxyhemoglobin Sodium Potassium Chloride Carbon Dioxide BUN Creatinine Glucose POC Glucose 171 H 201 H Lactic Acid Calcium Magnesium Ferritin Total Bilirubin Direct Bilirubin AST ALT Alkaline Phosphatase Lactate Dehydrogenase C-Reactive Protein Total Protein Albumin Triglycerides Lipase Arterial Blood Glucose 226 H Arterial Blood Ionized Calcium Urine WBC (Auto) Coronavirus (PCR) SARS-CoV-2 IgG Ab Crossmatch 05/25/20 05/25/20 05/25/20 08:37 08:37 12:38 WBC 12.0 H RBC 3.64 L Hgb Hct MCV 99 H MCH 33 H MCHC RDW Lymph % (Auto) [place] % (Auto) Lymph # (Auto) [place] # (Auto) Baso # (Auto) Seg Neutrophils % Seg Neuts % (Manual) Lymphocytes % (Manual) Nucleated RBC % Seg Neutrophils # Seg Neutrophils # Man Lymphocytes # (Manual) Monocytes # (Manual) Eosinophils # (Manual) PT INR APTT D-Dimer Heparin Anti-Xa Level ABG pH POC ABG pCO2 POC ABG pO2 ABG pO2 ABG HCO3 ABG O2 Saturation ABG Base Excess ABG Hemoglobin ABG Oxyhemoglobin ABG Sodium ABG Potassium ABG Chloride ABG Glucose Oxyhemoglobin Carboxyhemoglobin Sodium Potassium Chloride 97.3 L Carbon Dioxide 35 H BUN 25 H Creatinine 0.7 L Glucose 191 H POC Glucose 182 H Lactic Acid Calcium Magnesium Ferritin Total Bilirubin Direct Bilirubin AST ALT Alkaline Phosphatase Lactate Dehydrogenase C-Reactive Protein Total Protein Albumin Triglycerides Lipase Arterial Blood Glucose Arterial Blood Ionized Calcium Urine WBC (Auto) Coronavirus (PCR) SARS-CoV-2 IgG Ab Crossmatch 05/25/20 05/26/20 05/26/20 18:16 00:06 04:50 WBC RBC Hgb Hct MCV MCH MCHC RDW Lymph % (Auto) [place] % (Auto) Lymph # (Auto) [place] # (Auto) Baso # (Auto) Seg Neutrophils % Seg Neuts % (Manual) Lymphocytes % (Manual) Nucleated RBC % Seg Neutrophils # Seg Neutrophils # Man Lymphocytes # (Manual) Monocytes # (Manual) Eosinophils # (Manual) PT INR APTT D-Dimer Heparin Anti-Xa Level ABG pH POC ABG pCO2 POC ABG pO2 ABG pO2 221.5 H ABG HCO3 40.4 H ABG O2 Saturation 99.3 H ABG Base Excess 12.8 H ABG Hemoglobin 10.4 L ABG Oxyhemoglobin ABG Sodium ABG Potassium ABG Chloride ABG Glucose Oxyhemoglobin Carboxyhemoglobin Sodium Potassium Chloride Carbon Dioxide BUN Creatinine Glucose POC Glucose 176 H 152 H Lactic Acid Calcium Magnesium Ferritin Total Bilirubin Direct Bilirubin AST ALT Alkaline Phosphatase Lactate Dehydrogenase C-Reactive Protein Total Protein Albumin Triglycerides Lipase Arterial Blood Glucose Arterial Blood Ionized Calcium Urine WBC (Auto) Coronavirus (PCR) SARS-CoV-2 IgG Ab Crossmatch 05/26/20 05/26/20 05/26/20 06:11 07:51 07:51 WBC 13.4 H RBC 3.64 L Hgb Hct MCV 98 H MCH 33 H MCHC RDW Lymph % (Auto) [place] % (Auto) Lymph # (Auto) [place] # (Auto) Baso # (Auto) Seg Neutrophils % Seg Neuts % (Manual) Lymphocytes % (Manual) Nucleated RBC % Seg Neutrophils # Seg Neutrophils # Man Lymphocytes # (Manual) Monocytes # (Manual) Eosinophils # (Manual) PT INR APTT D-Dimer Heparin Anti-Xa Level ABG pH POC ABG pCO2 POC ABG pO2 ABG pO2 ABG HCO3 ABG O2 Saturation ABG Base Excess ABG Hemoglobin ABG Oxyhemoglobin ABG Sodium ABG Potassium ABG Chloride ABG Glucose Oxyhemoglobin Carboxyhemoglobin Sodium Potassium Chloride 96.6 L Carbon Dioxide 39 H BUN 29 H Creatinine 0.7 L Glucose 174 H POC Glucose 165 H Lactic Acid Calcium Magnesium Ferritin Total Bilirubin Direct Bilirubin AST ALT Alkaline Phosphatase Lactate Dehydrogenase C-Reactive Protein Total Protein Albumin Triglycerides Lipase Arterial Blood Glucose Arterial Blood Ionized Calcium Urine WBC (Auto) Coronavirus (PCR) SARS-CoV-2 IgG Ab Crossmatch 05/26/20 05/27/20 05/27/20 23:23 03:43 05:29 WBC RBC Hgb Hct MCV MCH MCHC RDW Lymph % (Auto) [place] % (Auto) Lymph # (Auto) [place] # (Auto) Baso # (Auto) Seg Neutrophils % Seg Neuts % (Manual) Lymphocytes % (Manual) Nucleated RBC % Seg Neutrophils # Seg Neutrophils # Man Lymphocytes # (Manual) Monocytes # (Manual) Eosinophils # (Manual) PT INR APTT D-Dimer Heparin Anti-Xa Level ABG pH 7.480 H POC ABG pCO2 52.4 H POC ABG pO2 61.4 L ABG pO2 ABG HCO3 ABG O2 Saturation ABG Base Excess ABG Hemoglobin ABG Oxyhemoglobin ABG Sodium 134.9 L ABG Potassium ABG Chloride 95.0 L ABG Glucose 221 H Oxyhemoglobin Carboxyhemoglobin Sodium Potassium Chloride Carbon Dioxide BUN Creatinine Glucose POC Glucose 169 H 227 H Lactic Acid Calcium Magnesium Ferritin Total Bilirubin Direct Bilirubin AST ALT Alkaline Phosphatase Lactate Dehydrogenase C-Reactive Protein Total Protein Albumin Triglycerides Lipase Arterial Blood Glucose 221 H Arterial Blood Ionized Calcium 4.5 L Urine WBC (Auto) Coronavirus (PCR) SARS-CoV-2 IgG Ab Crossmatch 05/27/20 05/27/20 05/27/20 07:19 12:18 13:50 WBC RBC Hgb Hct MCV MCH MCHC RDW Lymph % (Auto) [place] % (Auto) Lymph # (Auto) [place] # (Auto) Baso # (Auto) Seg Neutrophils % Seg Neuts % (Manual) Lymphocytes % (Manual) Nucleated RBC % Seg Neutrophils # Seg Neutrophils # Man Lymphocytes # (Manual) Monocytes # (Manual) Eosinophils # (Manual) PT INR APTT D-Dimer Heparin Anti-Xa Level ABG pH POC ABG pCO2 POC ABG pO2 ABG pO2 ABG HCO3 ABG O2 Saturation ABG Base Excess ABG Hemoglobin ABG Oxyhemoglobin ABG Sodium ABG Potassium ABG Chloride ABG Glucose Oxyhemoglobin Carboxyhemoglobin Sodium Potassium Chloride Carbon Dioxide BUN Creatinine Glucose POC Glucose 114 H 148 H Lactic Acid Calcium Magnesium Ferritin Total Bilirubin Direct Bilirubin AST ALT Alkaline Phosphatase Lactate Dehydrogenase C-Reactive Protein Total Protein Albumin Triglycerides 247 H Lipase Arterial Blood Glucose Arterial Blood Ionized Calcium Urine WBC (Auto) Coronavirus (PCR) SARS-CoV-2 IgG Ab Crossmatch 05/28/20 05/28/20 05/28/20 00:13 04:16 05:22 WBC RBC Hgb Hct MCV MCH MCHC RDW Lymph % (Auto) [place] % (Auto) Lymph # (Auto) [place] # (Auto) Baso # (Auto) Seg Neutrophils % Seg Neuts % (Manual) Lymphocytes % (Manual) Nucleated RBC % Seg Neutrophils # Seg Neutrophils # Man Lymphocytes # (Manual) Monocytes # (Manual) Eosinophils # (Manual) PT INR APTT D-Dimer Heparin Anti-Xa Level ABG pH POC ABG pCO2 64.4 H POC ABG pO2 60.5 L ABG pO2 ABG HCO3 ABG O2 Saturation ABG Base Excess ABG Hemoglobin ABG Oxyhemoglobin ABG Sodium ABG Potassium ABG Chloride 95.0 L ABG Glucose 209 H Oxyhemoglobin Carboxyhemoglobin Sodium Potassium Chloride Carbon Dioxide BUN Creatinine Glucose POC Glucose 155 H 186 H Lactic Acid Calcium Magnesium Ferritin Total Bilirubin Direct Bilirubin AST ALT Alkaline Phosphatase Lactate Dehydrogenase C-Reactive Protein Total Protein Albumin Triglycerides Lipase Arterial Blood Glucose 209 H Arterial Blood Ionized Calcium Urine WBC (Auto) Coronavirus (PCR) SARS-CoV-2 IgG Ab Crossmatch 05/28/20 05/28/20 05/29/20 12:45 17:39 00:37 WBC RBC Hgb Hct MCV MCH MCHC RDW Lymph % (Auto) [place] % (Auto) Lymph # (Auto) [place] # (Auto) Baso # (Auto) Seg Neutrophils % Seg Neuts % (Manual) Lymphocytes % (Manual) Nucleated RBC % Seg Neutrophils # Seg Neutrophils # Man Lymphocytes # (Manual) Monocytes # (Manual) Eosinophils # (Manual) PT INR APTT D-Dimer Heparin Anti-Xa Level ABG pH POC ABG pCO2 POC ABG pO2 ABG pO2 ABG HCO3 ABG O2 Saturation ABG Base Excess ABG Hemoglobin ABG Oxyhemoglobin ABG Sodium ABG Potassium ABG Chloride ABG Glucose Oxyhemoglobin Carboxyhemoglobin Sodium Potassium Chloride Carbon Dioxide BUN Creatinine Glucose POC Glucose 143 H 164 H 221 H Lactic Acid Calcium Magnesium Ferritin Total Bilirubin Direct Bilirubin AST ALT Alkaline Phosphatase Lactate Dehydrogenase C-Reactive Protein Total Protein Albumin Triglycerides Lipase Arterial Blood Glucose Arterial Blood Ionized Calcium Urine WBC (Auto) Coronavirus (PCR) SARS-CoV-2 IgG Ab Crossmatch 05/29/20 05/29/20 05/29/20 04:15 05:33 12:34 WBC RBC Hgb Hct MCV MCH MCHC RDW Lymph % (Auto) [place] % (Auto) Lymph # (Auto) [place] # (Auto) Baso # (Auto) Seg Neutrophils % Seg Neuts % (Manual) Lymphocytes % (Manual) Nucleated RBC % Seg Neutrophils # Seg Neutrophils # Man Lymphocytes # (Manual) Monocytes # (Manual) Eosinophils # (Manual) PT INR APTT D-Dimer Heparin Anti-Xa Level ABG pH 7.463 H POC ABG pCO2 56.3 H POC ABG pO2 81.2 L ABG pO2 ABG HCO3 ABG O2 Saturation ABG Base Excess ABG Hemoglobin ABG Oxyhemoglobin ABG Sodium ABG Potassium ABG Chloride 96.0 L ABG Glucose 194 H Oxyhemoglobin Carboxyhemoglobin Sodium Potassium Chloride Carbon Dioxide BUN Creatinine Glucose POC Glucose 133 H 221 H Lactic Acid Calcium Magnesium Ferritin Total Bilirubin Direct Bilirubin AST ALT Alkaline Phosphatase Lactate Dehydrogenase C-Reactive Protein Total Protein Albumin Triglycerides Lipase Arterial Blood Glucose 194 H Arterial Blood Ionized Calcium 4.5 L Urine WBC (Auto) Coronavirus (PCR) SARS-CoV-2 IgG Ab Crossmatch 05/29/20 05/30/20 05/30/20 18:07 00:12 05:38 WBC RBC Hgb Hct MCV MCH MCHC RDW Lymph % (Auto) [place] % (Auto) Lymph # (Auto) [place] # (Auto) Baso # (Auto) Seg Neutrophils % Seg Neuts % (Manual) Lymphocytes % (Manual) Nucleated RBC % Seg Neutrophils # Seg Neutrophils # Man Lymphocytes # (Manual) Monocytes # (Manual) Eosinophils # (Manual) PT INR APTT D-Dimer Heparin Anti-Xa Level ABG pH POC ABG pCO2 POC ABG pO2 ABG pO2 ABG HCO3 ABG O2 Saturation ABG Base Excess ABG Hemoglobin ABG Oxyhemoglobin ABG Sodium ABG Potassium ABG Chloride ABG Glucose Oxyhemoglobin Carboxyhemoglobin Sodium Potassium Chloride Carbon Dioxide BUN Creatinine Glucose POC Glucose 162 H 190 H 208 H Lactic Acid Calcium Magnesium Ferritin Total Bilirubin Direct Bilirubin AST ALT Alkaline Phosphatase Lactate Dehydrogenase C-Reactive Protein Total Protein Albumin Triglycerides Lipase Arterial Blood Glucose Arterial Blood Ionized Calcium Urine WBC (Auto) Coronavirus (PCR) SARS-CoV-2 IgG Ab Crossmatch 05/30/20 05/30/20 05/30/20 09:30 11:35 11:54 WBC 12.4 H RBC 3.48 L Hgb 11.3 L Hct 34.6 L MCV 99 H MCH 33 H MCHC RDW Lymph % (Auto) [place] % (Auto) Lymph # (Auto) [place] # (Auto) Baso # (Auto) Seg Neutrophils % Seg Neuts % (Manual) Lymphocytes % (Manual) Nucleated RBC % Seg Neutrophils # Seg Neutrophils # Man Lymphocytes # (Manual) Monocytes # (Manual) Eosinophils # (Manual) PT INR APTT D-Dimer Heparin Anti-Xa Level ABG pH 7.455 H POC ABG pCO2 57.5 H POC ABG pO2 81.5 L ABG pO2 ABG HCO3 ABG O2 Saturation ABG Base Excess ABG Hemoglobin ABG Oxyhemoglobin ABG Sodium ABG Potassium ABG Chloride 96.0 L ABG Glucose 204 H Oxyhemoglobin Carboxyhemoglobin Sodium Potassium Chloride Carbon Dioxide BUN Creatinine Glucose POC Glucose 183 H Lactic Acid Calcium Magnesium Ferritin Total Bilirubin Direct Bilirubin AST ALT Alkaline Phosphatase Lactate Dehydrogenase C-Reactive Protein Total Protein Albumin Triglycerides Lipase Arterial Blood Glucose 204 H Arterial Blood Ionized Calcium Urine WBC (Auto) Coronavirus (PCR) SARS-CoV-2 IgG Ab Crossmatch 05/30/20 05/31/20 05/31/20 18:01 00:10 03:22 WBC RBC Hgb Hct MCV MCH MCHC RDW Lymph % (Auto) [place] % (Auto) Lymph # (Auto) [place] # (Auto) Baso # (Auto) Seg Neutrophils % Seg Neuts % (Manual) Lymphocytes % (Manual) Nucleated RBC % Seg Neutrophils # Seg Neutrophils # Man Lymphocytes # (Manual) Monocytes # (Manual) Eosinophils # (Manual) PT INR APTT D-Dimer Heparin Anti-Xa Level ABG pH POC ABG pCO2 60.4 H POC ABG pO2 71.5 L ABG pO2 ABG HCO3 ABG O2 Saturation ABG Base Excess ABG Hemoglobin ABG Oxyhemoglobin ABG Sodium ABG Potassium ABG Chloride 96.0 L ABG Glucose 169 H Oxyhemoglobin Carboxyhemoglobin Sodium Potassium Chloride Carbon Dioxide BUN Creatinine Glucose POC Glucose 184 H 135 H Lactic Acid Calcium Magnesium Ferritin Total Bilirubin Direct Bilirubin AST ALT Alkaline Phosphatase Lactate Dehydrogenase C-Reactive Protein Total Protein Albumin Triglycerides Lipase Arterial Blood Glucose 169 H Arterial Blood Ionized Calcium 4.5 L Urine WBC (Auto) Coronavirus (PCR) SARS-CoV-2 IgG Ab Crossmatch 05/31/20 05/31/20 05/31/20 05:24 11:18 14:41 WBC RBC Hgb Hct MCV MCH MCHC RDW Lymph % (Auto) [place] % (Auto) Lymph # (Auto) [place] # (Auto) Baso # (Auto) Seg Neutrophils % Seg Neuts % (Manual) Lymphocytes % (Manual) Nucleated RBC % Seg Neutrophils # Seg Neutrophils # Man Lymphocytes # (Manual) Monocytes # (Manual) Eosinophils # (Manual) PT INR APTT D-Dimer Heparin Anti-Xa Level ABG pH POC ABG pCO2 POC ABG pO2 ABG pO2 ABG HCO3 ABG O2 Saturation ABG Base Excess ABG Hemoglobin ABG Oxyhemoglobin ABG Sodium ABG Potassium ABG Chloride ABG Glucose Oxyhemoglobin Carboxyhemoglobin Sodium Potassium Chloride 96.8 L Carbon Dioxide 37 H BUN 31 H Creatinine 0.6 L Glucose 213 H POC Glucose 164 H 208 H Lactic Acid Calcium Magnesium Ferritin Total Bilirubin Direct Bilirubin AST ALT Alkaline Phosphatase Lactate Dehydrogenase C-Reactive Protein Total Protein Albumin Triglycerides Lipase Arterial Blood Glucose Arterial Blood Ionized Calcium Urine WBC (Auto) Coronavirus (PCR) SARS-CoV-2 IgG Ab Crossmatch 05/31/20 05/31/20 06/01/20 17:37 23:47 03:48 WBC RBC Hgb Hct MCV MCH MCHC RDW Lymph % (Auto) [place] % (Auto) Lymph # (Auto) [place] # (Auto) Baso # (Auto) Seg Neutrophils % Seg Neuts % (Manual) Lymphocytes % (Manual) Nucleated RBC % Seg Neutrophils # Seg Neutrophils # Man Lymphocytes # (Manual) Monocytes # (Manual) Eosinophils # (Manual) PT INR APTT D-Dimer Heparin Anti-Xa Level ABG pH POC ABG pCO2 59.7 H POC ABG pO2 73.9 L ABG pO2 ABG HCO3 ABG O2 Saturation ABG Base Excess ABG Hemoglobin ABG Oxyhemoglobin ABG Sodium ABG Potassium ABG Chloride 95.0 L ABG Glucose 256 H Oxyhemoglobin Carboxyhemoglobin Sodium Potassium Chloride Carbon Dioxide BUN Creatinine Glucose POC Glucose 168 H 178 H Lactic Acid Calcium Magnesium Ferritin Total Bilirubin Direct Bilirubin AST ALT Alkaline Phosphatase Lactate Dehydrogenase C-Reactive Protein Total Protein Albumin Triglycerides Lipase Arterial Blood Glucose 256 H Arterial Blood Ionized Calcium Urine WBC (Auto) Coronavirus (PCR) SARS-CoV-2 IgG Ab Crossmatch 06/01/20 06/01/20 06/01/20 05:01 07:47 07:47 WBC 14.4 H RBC 3.46 L Hgb 11.1 L Hct 34.3 L MCV 99 H MCH MCHC RDW Lymph % (Auto) [place] % (Auto) Lymph # (Auto) [place] # (Auto) Baso # (Auto) Seg Neutrophils % Seg Neuts % (Manual) 86.0 H Lymphocytes % (Manual) 9.0 L Nucleated RBC % Seg Neutrophils # Seg Neutrophils # Man 12.4 H Lymphocytes # (Manual) Monocytes # (Manual) Eosinophils # (Manual) PT INR APTT D-Dimer Heparin Anti-Xa Level ABG pH POC ABG pCO2 POC ABG pO2 ABG pO2 ABG HCO3 ABG O2 Saturation ABG Base Excess ABG Hemoglobin ABG Oxyhemoglobin ABG Sodium ABG Potassium ABG Chloride ABG Glucose Oxyhemoglobin Carboxyhemoglobin Sodium Potassium Chloride Carbon Dioxide BUN Creatinine Glucose POC Glucose 197 H Lactic Acid Calcium Magnesium Ferritin Total Bilirubin Direct Bilirubin AST ALT Alkaline Phosphatase Lactate Dehydrogenase C-Reactive Protein Total Protein Albumin Triglycerides 244 H Lipase Arterial Blood Glucose Arterial Blood Ionized Calcium Urine WBC (Auto) Coronavirus (PCR) SARS-CoV-2 IgG Ab Crossmatch 06/01/20 06/01/20 06/01/20 07:47 11:46 18:15 WBC RBC Hgb Hct MCV MCH MCHC RDW Lymph % (Auto) [place] % (Auto) Lymph # (Auto) [place] # (Auto) Baso # (Auto) Seg Neutrophils % Seg Neuts % (Manual) Lymphocytes % (Manual) Nucleated RBC % Seg Neutrophils # Seg Neutrophils # Man Lymphocytes # (Manual) Monocytes # (Manual) Eosinophils # (Manual) PT INR APTT D-Dimer Heparin Anti-Xa Level ABG pH POC ABG pCO2 POC ABG pO2 ABG pO2 ABG HCO3 ABG O2 Saturation ABG Base Excess ABG Hemoglobin ABG Oxyhemoglobin ABG Sodium ABG Potassium ABG Chloride ABG Glucose Oxyhemoglobin Carboxyhemoglobin Sodium Potassium Chloride 95.4 L Carbon Dioxide 35 H BUN 30 H Creatinine 0.5 L Glucose 214 H POC Glucose 181 H 221 H Lactic Acid Calcium Magnesium Ferritin Total Bilirubin Direct Bilirubin AST 54 H ALT 235 H Alkaline Phosphatase Lactate Dehydrogenase C-Reactive Protein Total Protein Albumin 2.9 L Triglycerides Lipase Arterial Blood Glucose Arterial Blood Ionized Calcium Urine WBC (Auto) Coronavirus (PCR) SARS-CoV-2 IgG Ab Crossmatch 06/01/20 06/02/20 06/02/20 23:12 04:00 05:31 WBC RBC Hgb Hct MCV MCH MCHC RDW Lymph % (Auto) [place] % (Auto) Lymph # (Auto) [place] # (Auto) Baso # (Auto) Seg Neutrophils % Seg Neuts % (Manual) Lymphocytes % (Manual) Nucleated RBC % Seg Neutrophils # Seg Neutrophils # Man Lymphocytes # (Manual) Monocytes # (Manual) Eosinophils # (Manual) PT INR APTT D-Dimer Heparin Anti-Xa Level ABG pH 7.465 H POC ABG pCO2 POC ABG pO2 ABG pO2 203.4 H ABG HCO3 41.2 H ABG O2 Saturation 99.3 H ABG Base Excess 15.1 H ABG Hemoglobin 11.5 L ABG Oxyhemoglobin ABG Sodium ABG Potassium ABG Chloride ABG Glucose Oxyhemoglobin Carboxyhemoglobin Sodium Potassium Chloride Carbon Dioxide BUN Creatinine Glucose POC Glucose 197 H 184 H Lactic Acid Calcium Magnesium Ferritin Total Bilirubin Direct Bilirubin AST ALT Alkaline Phosphatase Lactate Dehydrogenase C-Reactive Protein Total Protein Albumin Triglycerides Lipase Arterial Blood Glucose Arterial Blood Ionized Calcium Urine WBC (Auto) Coronavirus (PCR) SARS-CoV-2 IgG Ab Crossmatch 06/02/20 06/02/20 06/02/20 11:49 18:06 23:00 WBC RBC Hgb Hct MCV MCH MCHC RDW Lymph % (Auto) [place] % (Auto) Lymph # (Auto) [place] # (Auto) Baso # (Auto) Seg Neutrophils % Seg Neuts % (Manual) Lymphocytes % (Manual) Nucleated RBC % Seg Neutrophils # Seg Neutrophils # Man Lymphocytes # (Manual) Monocytes # (Manual) Eosinophils # (Manual) PT INR APTT D-Dimer Heparin Anti-Xa Level ABG pH POC ABG pCO2 POC ABG pO2 ABG pO2 ABG HCO3 ABG O2 Saturation ABG Base Excess ABG Hemoglobin ABG Oxyhemoglobin ABG Sodium ABG Potassium ABG Chloride ABG Glucose Oxyhemoglobin Carboxyhemoglobin Sodium Potassium Chloride Carbon Dioxide BUN Creatinine Glucose POC Glucose 195 H 177 H 228 H Lactic Acid Calcium Magnesium Ferritin Total Bilirubin Direct Bilirubin AST ALT Alkaline Phosphatase Lactate Dehydrogenase C-Reactive Protein Total Protein Albumin Triglycerides Lipase Arterial Blood Glucose Arterial Blood Ionized Calcium Urine WBC (Auto) Coronavirus (PCR) SARS-CoV-2 IgG Ab Crossmatch 06/03/20 06/03/20 06/03/20 03:58 05:19 12:21 WBC RBC Hgb Hct MCV MCH MCHC RDW Lymph % (Auto) [place] % (Auto) Lymph # (Auto) [place] # (Auto) Baso # (Auto) Seg Neutrophils % Seg Neuts % (Manual) Lymphocytes % (Manual) Nucleated RBC % Seg Neutrophils # Seg Neutrophils # Man Lymphocytes # (Manual) Monocytes # (Manual) Eosinophils # (Manual) PT INR APTT D-Dimer Heparin Anti-Xa Level ABG pH POC ABG pCO2 POC ABG pO2 ABG pO2 171.0 H ABG HCO3 42.8 H ABG O2 Saturation ABG Base Excess 15.6 H ABG Hemoglobin 12.3 L ABG Oxyhemoglobin ABG Sodium ABG Potassium ABG Chloride ABG Glucose Oxyhemoglobin Carboxyhemoglobin Sodium Potassium Chloride Carbon Dioxide BUN Creatinine Glucose POC Glucose 122 H 207 H Lactic Acid Calcium Magnesium Ferritin Total Bilirubin Direct Bilirubin AST ALT Alkaline Phosphatase Lactate Dehydrogenase C-Reactive Protein Total Protein Albumin Triglycerides Lipase Arterial Blood Glucose Arterial Blood Ionized Calcium Urine WBC (Auto) Coronavirus (PCR) SARS-CoV-2 IgG Ab Crossmatch 06/03/20 06/03/20 06/04/20 17:27 23:50 03:55 WBC RBC Hgb Hct MCV MCH MCHC RDW Lymph % (Auto) [place] % (Auto) Lymph # (Auto) [place] # (Auto) Baso # (Auto) Seg Neutrophils % Seg Neuts % (Manual) Lymphocytes % (Manual) Nucleated RBC % Seg Neutrophils # Seg Neutrophils # Man Lymphocytes # (Manual) Monocytes # (Manual) Eosinophils # (Manual) PT INR APTT D-Dimer Heparin Anti-Xa Level ABG pH POC ABG pCO2 POC ABG pO2 ABG pO2 117.2 H ABG HCO3 42.4 H ABG O2 Saturation ABG Base Excess 15.3 H ABG Hemoglobin 10.5 L ABG Oxyhemoglobin ABG Sodium ABG Potassium ABG Chloride ABG Glucose Oxyhemoglobin Carboxyhemoglobin Sodium Potassium Chloride Carbon Dioxide BUN Creatinine Glucose POC Glucose 157 H 214 H Lactic Acid Calcium Magnesium Ferritin Total Bilirubin Direct Bilirubin AST ALT Alkaline Phosphatase Lactate Dehydrogenase C-Reactive Protein Total Protein Albumin Triglycerides Lipase Arterial Blood Glucose Arterial Blood Ionized Calcium Urine WBC (Auto) Coronavirus (PCR) SARS-CoV-2 IgG Ab Crossmatch 06/04/20 06/04/20 06/04/20 05:49 11:41 17:30 WBC RBC Hgb Hct MCV MCH MCHC RDW Lymph % (Auto) [place] % (Auto) Lymph # (Auto) [place] # (Auto) Baso # (Auto) Seg Neutrophils % Seg Neuts % (Manual) Lymphocytes % (Manual) Nucleated RBC % Seg Neutrophils # Seg Neutrophils # Man Lymphocytes # (Manual) Monocytes # (Manual) Eosinophils # (Manual) PT INR APTT D-Dimer Heparin Anti-Xa Level ABG pH POC ABG pCO2 POC ABG pO2 ABG pO2 ABG HCO3 ABG O2 Saturation ABG Base Excess ABG Hemoglobin ABG Oxyhemoglobin ABG Sodium ABG Potassium ABG Chloride ABG Glucose Oxyhemoglobin Carboxyhemoglobin Sodium Potassium Chloride Carbon Dioxide BUN Creatinine Glucose POC Glucose 149 H 233 H 156 H Lactic Acid Calcium Magnesium Ferritin Total Bilirubin Direct Bilirubin AST ALT Alkaline Phosphatase Lactate Dehydrogenase C-Reactive Protein Total Protein Albumin Triglycerides Lipase Arterial Blood Glucose Arterial Blood Ionized Calcium Urine WBC (Auto) Coronavirus (PCR) SARS-CoV-2 IgG Ab Crossmatch 06/04/20 06/04/20 06/04/20 19:01 20:53 23:41 WBC RBC 3.18 L Hgb 10.8 L Hct 31.8 L MCV 100 H MCH 34 H MCHC RDW Lymph % (Auto) [place] % (Auto) Lymph # (Auto) [place] # (Auto) Baso # (Auto) Seg Neutrophils % Seg Neuts % (Manual) 86.0 H Lymphocytes % (Manual) 10.0 L Nucleated RBC % 1.0 H Seg Neutrophils # Seg Neutrophils # Man 8.5 H Lymphocytes # (Manual) 1.0 L Monocytes # (Manual) Eosinophils # (Manual) PT INR APTT D-Dimer Heparin Anti-Xa Level ABG pH POC ABG pCO2 POC ABG pO2 ABG pO2 ABG HCO3 ABG O2 Saturation ABG Base Excess ABG Hemoglobin ABG Oxyhemoglobin ABG Sodium ABG Potassium ABG Chloride ABG Glucose Oxyhemoglobin Carboxyhemoglobin Sodium Potassium 3.4 L D Chloride 96.5 L Carbon Dioxide 41 H* BUN 27 H Creatinine 0.5 L Glucose 173 H POC Glucose 217 H Lactic Acid Calcium Magnesium Ferritin Total Bilirubin Direct Bilirubin AST ALT Alkaline Phosphatase Lactate Dehydrogenase C-Reactive Protein Total Protein Albumin Triglycerides Lipase Arterial Blood Glucose Arterial Blood Ionized Calcium Urine WBC (Auto) Coronavirus (PCR) SARS-CoV-2 IgG Ab Crossmatch 06/05/20 06/05/20 06/05/20 06:05 11:54 12:35 WBC RBC Hgb Hct MCV MCH MCHC RDW Lymph % (Auto) [place] % (Auto) Lymph # (Auto) [place] # (Auto) Baso # (Auto) Seg Neutrophils % Seg Neuts % (Manual) Lymphocytes % (Manual) Nucleated RBC % Seg Neutrophils # Seg Neutrophils # Man Lymphocytes # (Manual) Monocytes # (Manual) Eosinophils # (Manual) PT INR APTT D-Dimer Heparin Anti-Xa Level ABG pH POC ABG pCO2 POC ABG pO2 ABG pO2 127.9 H ABG HCO3 41.1 H ABG O2 Saturation ABG Base Excess 13.0 H ABG Hemoglobin 13.4 L ABG Oxyhemoglobin ABG Sodium ABG Potassium ABG Chloride ABG Glucose Oxyhemoglobin Carboxyhemoglobin Sodium Potassium Chloride Carbon Dioxide BUN Creatinine Glucose POC Glucose 137 H 211 H Lactic Acid Calcium Magnesium Ferritin Total Bilirubin Direct Bilirubin AST ALT Alkaline Phosphatase Lactate Dehydrogenase C-Reactive Protein Total Protein Albumin Triglycerides Lipase Arterial Blood Glucose Arterial Blood Ionized Calcium Urine WBC (Auto) Coronavirus (PCR) SARS-CoV-2 IgG Ab Crossmatch 06/05/20 06/05/20 06/06/20 17:03 23:49 04:42 WBC RBC Hgb Hct MCV MCH MCHC RDW Lymph % (Auto) [place] % (Auto) Lymph # (Auto) [place] # (Auto) Baso # (Auto) Seg Neutrophils % Seg Neuts % (Manual) Lymphocytes % (Manual) Nucleated RBC % Seg Neutrophils # Seg Neutrophils # Man Lymphocytes # (Manual) Monocytes # (Manual) Eosinophils # (Manual) PT INR APTT D-Dimer Heparin Anti-Xa Level ABG pH POC ABG pCO2 56.1 H POC ABG pO2 52.5 L ABG pO2 ABG HCO3 ABG O2 Saturation ABG Base Excess ABG Hemoglobin 11.7 L ABG Oxyhemoglobin ABG Sodium ABG Potassium 3.3 L ABG Chloride 95.0 L ABG Glucose 156 H Oxyhemoglobin Carboxyhemoglobin Sodium Potassium Chloride Carbon Dioxide BUN Creatinine Glucose POC Glucose 159 H 194 H Lactic Acid Calcium Magnesium Ferritin Total Bilirubin Direct Bilirubin AST ALT Alkaline Phosphatase Lactate Dehydrogenase C-Reactive Protein Total Protein Albumin Triglycerides Lipase Arterial Blood Glucose 156 H Arterial Blood Ionized Calcium Urine WBC (Auto) Coronavirus (PCR) SARS-CoV-2 IgG Ab Crossmatch 06/06/20 06/06/20 06/06/20 05:57 12:06 17:38 WBC RBC Hgb Hct MCV MCH MCHC RDW Lymph % (Auto) [place] % (Auto) Lymph # (Auto) [place] # (Auto) Baso # (Auto) Seg Neutrophils % Seg Neuts % (Manual) Lymphocytes % (Manual) Nucleated RBC % Seg Neutrophils # Seg Neutrophils # Man Lymphocytes # (Manual) Monocytes # (Manual) Eosinophils # (Manual) PT INR APTT D-Dimer Heparin Anti-Xa Level ABG pH POC ABG pCO2 POC ABG pO2 ABG pO2 ABG HCO3 ABG O2 Saturation ABG Base Excess ABG Hemoglobin ABG Oxyhemoglobin ABG Sodium ABG Potassium ABG Chloride ABG Glucose Oxyhemoglobin Carboxyhemoglobin Sodium Potassium Chloride Carbon Dioxide BUN Creatinine Glucose POC Glucose 144 H 230 H 162 H Lactic Acid Calcium Magnesium Ferritin Total Bilirubin Direct Bilirubin AST ALT Alkaline Phosphatase Lactate Dehydrogenase C-Reactive Protein Total Protein Albumin Triglycerides Lipase Arterial Blood Glucose Arterial Blood Ionized Calcium Urine WBC (Auto) Coronavirus (PCR) SARS-CoV-2 IgG Ab Crossmatch 06/06/20 06/07/20 06/07/20 23:50 04:34 06:03 WBC RBC Hgb Hct MCV MCH MCHC RDW Lymph % (Auto) [place] % (Auto) Lymph # (Auto) [place] # (Auto) Baso # (Auto) Seg Neutrophils % Seg Neuts % (Manual) Lymphocytes % (Manual) Nucleated RBC % Seg Neutrophils # Seg Neutrophils # Man Lymphocytes # (Manual) Monocytes # (Manual) Eosinophils # (Manual) PT INR APTT D-Dimer Heparin Anti-Xa Level ABG pH 7.511 H POC ABG pCO2 53.5 H POC ABG pO2 114.5 H ABG pO2 ABG HCO3 ABG O2 Saturation ABG Base Excess ABG Hemoglobin 9.4 L ABG Oxyhemoglobin ABG Sodium 134.5 L ABG Potassium ABG Chloride 94.0 L ABG Glucose 186 H Oxyhemoglobin Carboxyhemoglobin Sodium Potassium Chloride Carbon Dioxide BUN Creatinine Glucose POC Glucose 181 H 155 H Lactic Acid Calcium Magnesium Ferritin Total Bilirubin Direct Bilirubin AST ALT Alkaline Phosphatase Lactate Dehydrogenase C-Reactive Protein Total Protein Albumin Triglycerides Lipase Arterial Blood Glucose 186 H Arterial Blood Ionized Calcium 4.5 L Urine WBC (Auto) Coronavirus (PCR) SARS-CoV-2 IgG Ab Crossmatch 06/07/20 06/07/20 06/07/20 13:41 14:58 14:58 WBC RBC 2.72 L Hgb 9.3 L Hct 27.2 L MCV 100 H MCH 34 H MCHC RDW Lymph % (Auto) [place] % (Auto) Lymph # (Auto) [place] # (Auto) Baso # (Auto) Seg Neutrophils % Seg Neuts % (Manual) Lymphocytes % (Manual) Nucleated RBC % Seg Neutrophils # Seg Neutrophils # Man Lymphocytes # (Manual) Monocytes # (Manual) Eosinophils # (Manual) PT INR APTT D-Dimer Heparin Anti-Xa Level ABG pH POC ABG pCO2 POC ABG pO2 ABG pO2 ABG HCO3 ABG O2 Saturation ABG Base Excess ABG Hemoglobin ABG Oxyhemoglobin ABG Sodium ABG Potassium ABG Chloride ABG Glucose Oxyhemoglobin Carboxyhemoglobin Sodium Potassium Chloride 93.5 L Carbon Dioxide 39 H BUN 22 H Creatinine 0.4 L Glucose 188 H POC Glucose 201 H Lactic Acid Calcium Magnesium Ferritin Total Bilirubin Direct Bilirubin AST 61 H ALT 273 H Alkaline Phosphatase Lactate Dehydrogenase C-Reactive Protein Total Protein 5.9 L Albumin 2.7 L Triglycerides Lipase Arterial Blood Glucose Arterial Blood Ionized Calcium Urine WBC (Auto) Coronavirus (PCR) SARS-CoV-2 IgG Ab Crossmatch 06/07/20 06/08/20 06/08/20 23:18 05:31 12:07 WBC RBC Hgb Hct MCV MCH MCHC RDW Lymph % (Auto) [place] % (Auto) Lymph # (Auto) [place] # (Auto) Baso # (Auto) Seg Neutrophils % Seg Neuts % (Manual) Lymphocytes % (Manual) Nucleated RBC % Seg Neutrophils # Seg Neutrophils # Man Lymphocytes # (Manual) Monocytes # (Manual) Eosinophils # (Manual) PT INR APTT D-Dimer Heparin Anti-Xa Level ABG pH POC ABG pCO2 POC ABG pO2 ABG pO2 ABG HCO3 ABG O2 Saturation ABG Base Excess ABG Hemoglobin ABG Oxyhemoglobin ABG Sodium ABG Potassium ABG Chloride ABG Glucose Oxyhemoglobin Carboxyhemoglobin Sodium Potassium Chloride Carbon Dioxide BUN Creatinine Glucose POC Glucose 214 H 129 H 179 H Lactic Acid Calcium Magnesium Ferritin Total Bilirubin Direct Bilirubin AST ALT Alkaline Phosphatase Lactate Dehydrogenase C-Reactive Protein Total Protein Albumin Triglycerides Lipase Arterial Blood Glucose Arterial Blood Ionized Calcium Urine WBC (Auto) Coronavirus (PCR) SARS-CoV-2 IgG Ab Crossmatch 06/08/20 06/08/20 06/09/20 18:18 23:35 05:42 WBC RBC Hgb Hct MCV MCH MCHC RDW Lymph % (Auto) [place] % (Auto) Lymph # (Auto) [place] # (Auto) Baso # (Auto) Seg Neutrophils % Seg Neuts % (Manual) Lymphocytes % (Manual) Nucleated RBC % Seg Neutrophils # Seg Neutrophils # Man Lymphocytes # (Manual) Monocytes # (Manual) Eosinophils # (Manual) PT INR APTT D-Dimer Heparin Anti-Xa Level ABG pH POC ABG pCO2 POC ABG pO2 ABG pO2 ABG HCO3 ABG O2 Saturation ABG Base Excess ABG Hemoglobin ABG Oxyhemoglobin ABG Sodium ABG Potassium ABG Chloride ABG Glucose Oxyhemoglobin Carboxyhemoglobin Sodium Potassium Chloride Carbon Dioxide BUN Creatinine Glucose POC Glucose 172 H 177 H 137 H Lactic Acid Calcium Magnesium Ferritin Total Bilirubin Direct Bilirubin AST ALT Alkaline Phosphatase Lactate Dehydrogenase C-Reactive Protein Total Protein Albumin Triglycerides Lipase Arterial Blood Glucose Arterial Blood Ionized Calcium Urine WBC (Auto) Coronavirus (PCR) SARS-CoV-2 IgG Ab Crossmatch 06/09/20 06/09/20 06/09/20 06:20 07:55 07:55 WBC 12.4 H RBC 3.26 L Hgb 11.1 L Hct 33.4 L D MCV 102 H MCH 34 H MCHC RDW Lymph % (Auto) [place] % (Auto) Lymph # (Auto) [place] # (Auto) Baso # (Auto) Seg Neutrophils % Seg Neuts % (Manual) Lymphocytes % (Manual) Nucleated RBC % Seg Neutrophils # Seg Neutrophils # Man Lymphocytes # (Manual) Monocytes # (Manual) Eosinophils # (Manual) PT INR APTT D-Dimer Heparin Anti-Xa Level ABG pH 7.466 H POC ABG pCO2 50.7 H POC ABG pO2 53.0 L ABG pO2 ABG HCO3 ABG O2 Saturation ABG Base Excess ABG Hemoglobin ABG Oxyhemoglobin ABG Sodium ABG Potassium 2.9 L ABG Chloride 93.0 L ABG Glucose 138 H Oxyhemoglobin Carboxyhemoglobin Sodium Potassium 3.0 L Chloride 92.3 L Carbon Dioxide 37 H BUN 21 H Creatinine 0.6 L Glucose 120 H POC Glucose Lactic Acid Calcium Magnesium Ferritin Total Bilirubin Direct Bilirubin AST ALT Alkaline Phosphatase Lactate Dehydrogenase C-Reactive Protein Total Protein Albumin Triglycerides Lipase Arterial Blood Glucose 138 H Arterial Blood Ionized Calcium 4.5 L Urine WBC (Auto) Coronavirus (PCR) SARS-CoV-2 IgG Ab Crossmatch 06/09/20 06/09/20 06/10/20 11:22 18:32 04:46 WBC RBC Hgb Hct MCV MCH MCHC RDW Lymph % (Auto) [place] % (Auto) Lymph # (Auto) [place] # (Auto) Baso # (Auto) Seg Neutrophils % Seg Neuts % (Manual) Lymphocytes % (Manual) Nucleated RBC % Seg Neutrophils # Seg Neutrophils # Man Lymphocytes # (Manual) Monocytes # (Manual) Eosinophils # (Manual) PT INR APTT D-Dimer Heparin Anti-Xa Level ABG pH 7.501 H POC ABG pCO2 POC ABG pO2 126.5 H ABG pO2 ABG HCO3 ABG O2 Saturation ABG Base Excess ABG Hemoglobin 10.3 L ABG Oxyhemoglobin ABG Sodium ABG Potassium ABG Chloride ABG Glucose 220 H Oxyhemoglobin Carboxyhemoglobin Sodium Potassium Chloride Carbon Dioxide BUN Creatinine Glucose POC Glucose 117 H 121 H Lactic Acid Calcium Magnesium Ferritin Total Bilirubin Direct Bilirubin AST ALT Alkaline Phosphatase Lactate Dehydrogenase C-Reactive Protein Total Protein Albumin Triglycerides Lipase Arterial Blood Glucose 220 H Arterial Blood Ionized Calcium Urine WBC (Auto) Coronavirus (PCR) SARS-CoV-2 IgG Ab Crossmatch 06/10/20 06/10/20 06/10/20 05:30 09:38 12:03 WBC RBC Hgb Hct MCV MCH MCHC RDW Lymph % (Auto) [place] % (Auto) Lymph # (Auto) [place] # (Auto) Baso # (Auto) Seg Neutrophils % Seg Neuts % (Manual) Lymphocytes % (Manual) Nucleated RBC % Seg Neutrophils # Seg Neutrophils # Man Lymphocytes # (Manual) Monocytes # (Manual) Eosinophils # (Manual) PT INR APTT D-Dimer Heparin Anti-Xa Level ABG pH POC ABG pCO2 POC ABG pO2 ABG pO2 ABG HCO3 ABG O2 Saturation ABG Base Excess ABG Hemoglobin ABG Oxyhemoglobin ABG Sodium ABG Potassium ABG Chloride ABG Glucose Oxyhemoglobin Carboxyhemoglobin Sodium Potassium Chloride Carbon Dioxide BUN Creatinine Glucose POC Glucose 181 H 204 H Lactic Acid Calcium Magnesium Ferritin Total Bilirubin Direct Bilirubin AST ALT Alkaline Phosphatase Lactate Dehydrogenase C-Reactive Protein Total Protein Albumin Triglycerides 738 H Lipase Arterial Blood Glucose Arterial Blood Ionized Calcium Urine WBC (Auto) Coronavirus (PCR) SARS-CoV-2 IgG Ab Crossmatch 06/10/20 06/11/20 06/11/20 17:17 00:04 04:38 WBC RBC Hgb Hct MCV MCH MCHC RDW Lymph % (Auto) [place] % (Auto) Lymph # (Auto) [place] # (Auto) Baso # (Auto) Seg Neutrophils % Seg Neuts % (Manual) Lymphocytes % (Manual) Nucleated RBC % Seg Neutrophils # Seg Neutrophils # Man Lymphocytes # (Manual) Monocytes # (Manual) Eosinophils # (Manual) PT INR APTT D-Dimer Heparin Anti-Xa Level ABG pH 7.479 H POC ABG pCO2 POC ABG pO2 76.7 L ABG pO2 ABG HCO3 ABG O2 Saturation ABG Base Excess ABG Hemoglobin 9.8 L ABG Oxyhemoglobin ABG Sodium 135.8 L ABG Potassium ABG Chloride ABG Glucose 238 H Oxyhemoglobin Carboxyhemoglobin Sodium Potassium Chloride Carbon Dioxide BUN Creatinine Glucose POC Glucose 156 H 178 H Lactic Acid Calcium Magnesium Ferritin Total Bilirubin Direct Bilirubin AST ALT Alkaline Phosphatase Lactate Dehydrogenase C-Reactive Protein Total Protein Albumin Triglycerides Lipase Arterial Blood Glucose 238 H Arterial Blood Ionized Calcium Urine WBC (Auto) Coronavirus (PCR) SARS-CoV-2 IgG Ab Crossmatch 06/11/20 06/11/20 06/11/20 05:21 06:52 11:50 WBC RBC Hgb Hct MCV MCH MCHC RDW Lymph % (Auto) [place] % (Auto) Lymph # (Auto) [place] # (Auto) Baso # (Auto) Seg Neutrophils % Seg Neuts % (Manual) Lymphocytes % (Manual) Nucleated RBC % Seg Neutrophils # Seg Neutrophils # Man Lymphocytes # (Manual) Monocytes # (Manual) Eosinophils # (Manual) PT INR APTT D-Dimer Heparin Anti-Xa Level ABG pH POC ABG pCO2 POC ABG pO2 ABG pO2 ABG HCO3 ABG O2 Saturation ABG Base Excess ABG Hemoglobin ABG Oxyhemoglobin ABG Sodium ABG Potassium ABG Chloride ABG Glucose Oxyhemoglobin Carboxyhemoglobin Sodium Potassium Chloride Carbon Dioxide BUN Creatinine Glucose POC Glucose 215 H 187 H Lactic Acid Calcium Magnesium Ferritin Total Bilirubin Direct Bilirubin AST ALT Alkaline Phosphatase Lactate Dehydrogenase C-Reactive Protein Total Protein Albumin Triglycerides 331 H Lipase Arterial Blood Glucose Arterial Blood Ionized Calcium Urine WBC (Auto) Coronavirus (PCR) SARS-CoV-2 IgG Ab Crossmatch 06/11/20 06/11/20 06/12/20 17:49 23:35 04:52 WBC RBC Hgb Hct MCV MCH MCHC RDW Lymph % (Auto) [place] % (Auto) Lymph # (Auto) [place] # (Auto) Baso # (Auto) Seg Neutrophils % Seg Neuts % (Manual) Lymphocytes % (Manual) Nucleated RBC % Seg Neutrophils # Seg Neutrophils # Man Lymphocytes # (Manual) Monocytes # (Manual) Eosinophils # (Manual) PT INR APTT D-Dimer Heparin Anti-Xa Level ABG pH 7.486 H POC ABG pCO2 POC ABG pO2 ABG pO2 ABG HCO3 ABG O2 Saturation ABG Base Excess ABG Hemoglobin 9.4 L ABG Oxyhemoglobin ABG Sodium ABG Potassium 3.2 L ABG Chloride ABG Glucose 209 H Oxyhemoglobin Carboxyhemoglobin Sodium Potassium Chloride Carbon Dioxide BUN Creatinine Glucose POC Glucose 211 H 200 H Lactic Acid Calcium Magnesium Ferritin Total Bilirubin Direct Bilirubin AST ALT Alkaline Phosphatase Lactate Dehydrogenase C-Reactive Protein Total Protein Albumin Triglycerides Lipase Arterial Blood Glucose 209 H Arterial Blood Ionized Calcium Urine WBC (Auto) Coronavirus (PCR) SARS-CoV-2 IgG Ab Crossmatch 06/12/20 06/12/20 06/12/20 05:13 11:47 18:33 WBC RBC Hgb Hct MCV MCH MCHC RDW Lymph % (Auto) [place] % (Auto) Lymph # (Auto) [place] # (Auto) Baso # (Auto) Seg Neutrophils % Seg Neuts % (Manual) Lymphocytes % (Manual) Nucleated RBC % Seg Neutrophils # Seg Neutrophils # Man Lymphocytes # (Manual) Monocytes # (Manual) Eosinophils # (Manual) PT INR APTT D-Dimer Heparin Anti-Xa Level ABG pH POC ABG pCO2 POC ABG pO2 ABG pO2 ABG HCO3 ABG O2 Saturation ABG Base Excess ABG Hemoglobin ABG Oxyhemoglobin ABG Sodium ABG Potassium ABG Chloride ABG Glucose Oxyhemoglobin Carboxyhemoglobin Sodium Potassium Chloride Carbon Dioxide BUN Creatinine Glucose POC Glucose 174 H 214 H 194 H Lactic Acid Calcium Magnesium Ferritin Total Bilirubin Direct Bilirubin AST ALT Alkaline Phosphatase Lactate Dehydrogenase C-Reactive Protein Total Protein Albumin Triglycerides Lipase Arterial Blood Glucose Arterial Blood Ionized Calcium Urine WBC (Auto) Coronavirus (PCR) SARS-CoV-2 IgG Ab Crossmatch 06/12/20 06/13/20 06/13/20 23:49 05:41 12:30 WBC RBC Hgb Hct MCV MCH MCHC RDW Lymph % (Auto) [place] % (Auto) Lymph # (Auto) [place] # (Auto) Baso # (Auto) Seg Neutrophils % Seg Neuts % (Manual) Lymphocytes % (Manual) Nucleated RBC % Seg Neutrophils # Seg Neutrophils # Man Lymphocytes # (Manual) Monocytes # (Manual) Eosinophils # (Manual) PT INR APTT D-Dimer Heparin Anti-Xa Level ABG pH POC ABG pCO2 POC ABG pO2 ABG pO2 ABG HCO3 ABG O2 Saturation ABG Base Excess ABG Hemoglobin ABG Oxyhemoglobin ABG Sodium ABG Potassium ABG Chloride ABG Glucose Oxyhemoglobin Carboxyhemoglobin Sodium Potassium Chloride Carbon Dioxide BUN Creatinine Glucose POC Glucose 160 H 150 H 181 H Lactic Acid Calcium Magnesium Ferritin Total Bilirubin Direct Bilirubin AST ALT Alkaline Phosphatase Lactate Dehydrogenase C-Reactive Protein Total Protein Albumin Triglycerides Lipase Arterial Blood Glucose Arterial Blood Ionized Calcium Urine WBC (Auto) Coronavirus (PCR) SARS-CoV-2 IgG Ab Crossmatch 06/13/20 06/13/20 06/13/20 14:14 17:48 23:27 WBC 12.8 H RBC 2.33 L Hgb 8.0 L Hct 23.3 L MCV 100 H MCH 34 H MCHC RDW 15.7 H Lymph % (Auto) [place] % (Auto) Lymph # (Auto) [place] # (Auto) Baso # (Auto) Seg Neutrophils % Seg Neuts % (Manual) 85.0 H Lymphocytes % (Manual) 10.0 L Nucleated RBC % Seg Neutrophils # Seg Neutrophils # Man 10.9 H Lymphocytes # (Manual) Monocytes # (Manual) Eosinophils # (Manual) PT INR APTT D-Dimer Heparin Anti-Xa Level ABG pH POC ABG pCO2 POC ABG pO2 ABG pO2 ABG HCO3 ABG O2 Saturation ABG Base Excess ABG Hemoglobin ABG Oxyhemoglobin ABG Sodium ABG Potassium ABG Chloride ABG Glucose Oxyhemoglobin Carboxyhemoglobin Sodium Potassium Chloride Carbon Dioxide BUN Creatinine Glucose POC Glucose 173 H 154 H Lactic Acid Calcium Magnesium Ferritin Total Bilirubin Direct Bilirubin AST ALT Alkaline Phosphatase Lactate Dehydrogenase C-Reactive Protein Total Protein Albumin Triglycerides Lipase Arterial Blood Glucose Arterial Blood Ionized Calcium Urine WBC (Auto) Coronavirus (PCR) SARS-CoV-2 IgG Ab Crossmatch 06/14/20 06/14/20 06/14/20 03:58 05:21 07:15 WBC 26.2 H RBC 2.97 L Hgb 9.7 L Hct 29.9 L D MCV 101 H MCH 33 H MCHC RDW 15.3 H Lymph % (Auto) [place] % (Auto) Lymph # (Auto) [place] # (Auto) Baso # (Auto) Seg Neutrophils % Seg Neuts % (Manual) 79.0 H Lymphocytes % (Manual) 5.0 L Nucleated RBC % 3.0 H Seg Neutrophils # Seg Neutrophils # Man 20.7 H Lymphocytes # (Manual) Monocytes # (Manual) 1.3 H Eosinophils # (Manual) PT INR APTT D-Dimer Heparin Anti-Xa Level ABG pH POC ABG pCO2 51.5 H POC ABG pO2 70.0 L ABG pO2 ABG HCO3 ABG O2 Saturation ABG Base Excess ABG Hemoglobin 10.1 L ABG Oxyhemoglobin ABG Sodium 131.5 L ABG Potassium 3.1 L ABG Chloride 93.0 L ABG Glucose 188 H Oxyhemoglobin Carboxyhemoglobin Sodium Potassium Chloride Carbon Dioxide BUN Creatinine Glucose POC Glucose 147 H Lactic Acid Calcium Magnesium Ferritin Total Bilirubin Direct Bilirubin AST ALT Alkaline Phosphatase Lactate Dehydrogenase C-Reactive Protein Total Protein Albumin Triglycerides Lipase Arterial Blood Glucose 188 H Arterial Blood Ionized Calcium Urine WBC (Auto) Coronavirus (PCR) SARS-CoV-2 IgG Ab Crossmatch 06/14/20 06/14/20 06/14/20 07:15 11:30 11:50 WBC RBC Hgb Hct MCV MCH MCHC RDW Lymph % (Auto) [place] % (Auto) Lymph # (Auto) [place] # (Auto) Baso # (Auto) Seg Neutrophils % Seg Neuts % (Manual) Lymphocytes % (Manual) Nucleated RBC % Seg Neutrophils # Seg Neutrophils # Man Lymphocytes # (Manual) Monocytes # (Manual) Eosinophils # (Manual) PT INR APTT D-Dimer Heparin Anti-Xa Level ABG pH POC ABG pCO2 POC ABG pO2 ABG pO2 ABG HCO3 ABG O2 Saturation ABG Base Excess ABG Hemoglobin ABG Oxyhemoglobin ABG Sodium ABG Potassium ABG Chloride ABG Glucose Oxyhemoglobin Carboxyhemoglobin Sodium 135 L Potassium 3.5 L Chloride 90.4 L Carbon Dioxide 38 H BUN Creatinine 0.5 L Glucose 190 H POC Glucose 176 H Lactic Acid Calcium Magnesium Ferritin 1496.0 H Total Bilirubin Direct Bilirubin AST ALT 81 H Alkaline Phosphatase Lactate Dehydrogenase C-Reactive Protein Total Protein Albumin 2.9 L Triglycerides Lipase Arterial Blood Glucose Arterial Blood Ionized Calcium Urine WBC (Auto) Coronavirus (PCR) SARS-CoV-2 IgG Ab Crossmatch 06/14/20 06/15/20 06/15/20 23:31 04:00 05:00 WBC RBC Hgb Hct MCV MCH MCHC RDW Lymph % (Auto) [place] % (Auto) Lymph # (Auto) [place] # (Auto) Baso # (Auto) Seg Neutrophils % Seg Neuts % (Manual) Lymphocytes % (Manual) Nucleated RBC % Seg Neutrophils # Seg Neutrophils # Man Lymphocytes # (Manual) Monocytes # (Manual) Eosinophils # (Manual) PT INR APTT D-Dimer Heparin Anti-Xa Level ABG pH POC ABG pCO2 POC ABG pO2 ABG pO2 ABG HCO3 ABG O2 Saturation ABG Base Excess ABG Hemoglobin ABG Oxyhemoglobin ABG Sodium ABG Potassium ABG Chloride ABG Glucose Oxyhemoglobin Carboxyhemoglobin Sodium 133 L Potassium Chloride 91.1 L Carbon Dioxide 34 H BUN Creatinine 0.4 L Glucose 159 H POC Glucose 200 H Lactic Acid Calcium Magnesium Ferritin Total Bilirubin 2.00 H Direct Bilirubin AST 47 H ALT 77 H Alkaline Phosphatase Lactate Dehydrogenase C-Reactive Protein Total Protein Albumin 2.6 L Triglycerides 152 H Lipase Arterial Blood Glucose Arterial Blood Ionized Calcium Urine WBC (Auto) Coronavirus (PCR) SARS-CoV-2 IgG Ab Crossmatch 06/15/20 06/15/20 06/15/20 05:35 06:27 11:38 WBC RBC Hgb Hct MCV MCH MCHC RDW Lymph % (Auto) [place] % (Auto) Lymph # (Auto) [place] # (Auto) Baso # (Auto) Seg Neutrophils % Seg Neuts % (Manual) Lymphocytes % (Manual) Nucleated RBC % Seg Neutrophils # Seg Neutrophils # Man Lymphocytes # (Manual) Monocytes # (Manual) Eosinophils # (Manual) PT INR APTT D-Dimer Heparin Anti-Xa Level ABG pH POC ABG pCO2 61.0 H POC ABG pO2 67.9 L ABG pO2 ABG HCO3 ABG O2 Saturation ABG Base Excess ABG Hemoglobin 10.4 L ABG Oxyhemoglobin ABG Sodium 132.7 L ABG Potassium 3.3 L ABG Chloride 92.0 L ABG Glucose 158 H Oxyhemoglobin Carboxyhemoglobin Sodium Potassium Chloride Carbon Dioxide BUN Creatinine Glucose POC Glucose 148 H 197 H Lactic Acid Calcium Magnesium Ferritin Total Bilirubin Direct Bilirubin AST ALT Alkaline Phosphatase Lactate Dehydrogenase C-Reactive Protein Total Protein Albumin Triglycerides Lipase Arterial Blood Glucose 158 H Arterial Blood Ionized Calcium Urine WBC (Auto) Coronavirus (PCR) SARS-CoV-2 IgG Ab Crossmatch 06/15/20 06/15/20 06/16/20 17:29 Unknown 00:01 WBC 20.7 H RBC 2.57 L Hgb 8.9 L Hct 25.8 L MCV 101 H MCH 35 H MCHC 35 H RDW 16.0 H Lymph % (Auto) [place] % (Auto) Lymph # (Auto) [place] # (Auto) Baso # (Auto) Seg Neutrophils % Seg Neuts % (Manual) 83.0 H Lymphocytes % (Manual) 8.0 L Nucleated RBC % Seg Neutrophils # Seg Neutrophils # Man 17.2 H Lymphocytes # (Manual) Monocytes # (Manual) 1.2 H Eosinophils # (Manual) PT INR APTT D-Dimer Heparin Anti-Xa Level ABG pH POC ABG pCO2 POC ABG pO2 ABG pO2 ABG HCO3 ABG O2 Saturation ABG Base Excess ABG Hemoglobin ABG Oxyhemoglobin ABG Sodium ABG Potassium ABG Chloride ABG Glucose Oxyhemoglobin Carboxyhemoglobin Sodium Potassium Chloride Carbon Dioxide BUN Creatinine Glucose POC Glucose 231 H 257 H Lactic Acid Calcium Magnesium Ferritin Total Bilirubin Direct Bilirubin AST ALT Alkaline Phosphatase Lactate Dehydrogenase C-Reactive Protein Total Protein Albumin Triglycerides Lipase Arterial Blood Glucose Arterial Blood Ionized Calcium Urine WBC (Auto) Coronavirus (PCR) SARS-CoV-2 IgG Ab Crossmatch 06/16/20 06/16/20 06/16/20 04:00 04:00 05:22 WBC 13.8 H RBC 2.03 L Hgb 7.6 L Hct 20.7 L MCV 102 H MCH 37 H MCHC 37 H RDW 16.2 H Lymph % (Auto) 4.4 L [place] % (Auto) Lymph # (Auto) 0.6 L [place] # (Auto) Baso # (Auto) Seg Neutrophils % Seg Neuts % (Manual) Lymphocytes % (Manual) Nucleated RBC % Seg Neutrophils # 12.7 H Seg Neutrophils # Man Lymphocytes # (Manual) Monocytes # (Manual) Eosinophils # (Manual) PT INR APTT D-Dimer Heparin Anti-Xa Level ABG pH POC ABG pCO2 POC ABG pO2 ABG pO2 ABG HCO3 ABG O2 Saturation ABG Base Excess ABG Hemoglobin ABG Oxyhemoglobin ABG Sodium ABG Potassium ABG Chloride ABG Glucose Oxyhemoglobin Carboxyhemoglobin Sodium 130 L Potassium Chloride 88.9 L Carbon Dioxide 36 H BUN Creatinine 0.3 L Glucose 276 H POC Glucose 250 H Lactic Acid Calcium Magnesium Ferritin Total Bilirubin Direct Bilirubin AST ALT Alkaline Phosphatase Lactate Dehydrogenase C-Reactive Protein Total Protein Albumin Triglycerides Lipase Arterial Blood Glucose Arterial Blood Ionized Calcium Urine WBC (Auto) Coronavirus (PCR) SARS-CoV-2 IgG Ab Crossmatch 06/16/20 06/16/20 06/17/20 12:44 18:18 00:39 WBC RBC Hgb Hct MCV MCH MCHC RDW Lymph % (Auto) [place] % (Auto) Lymph # (Auto) [place] # (Auto) Baso # (Auto) Seg Neutrophils % Seg Neuts % (Manual) Lymphocytes % (Manual) Nucleated RBC % Seg Neutrophils # Seg Neutrophils # Man Lymphocytes # (Manual) Monocytes # (Manual) Eosinophils # (Manual) PT INR APTT D-Dimer Heparin Anti-Xa Level ABG pH POC ABG pCO2 POC ABG pO2 ABG pO2 ABG HCO3 ABG O2 Saturation ABG Base Excess ABG Hemoglobin ABG Oxyhemoglobin ABG Sodium ABG Potassium ABG Chloride ABG Glucose Oxyhemoglobin Carboxyhemoglobin Sodium Potassium Chloride Carbon Dioxide BUN Creatinine Glucose POC Glucose 279 H 239 H 247 H Lactic Acid Calcium Magnesium Ferritin Total Bilirubin Direct Bilirubin AST ALT Alkaline Phosphatase Lactate Dehydrogenase C-Reactive Protein Total Protein Albumin Triglycerides Lipase Arterial Blood Glucose Arterial Blood Ionized Calcium Urine WBC (Auto) Coronavirus (PCR) SARS-CoV-2 IgG Ab Crossmatch 06/17/20 06/17/20 06/17/20 03:40 04:08 10:54 WBC RBC Hgb Hct MCV MCH MCHC RDW Lymph % (Auto) [place] % (Auto) Lymph # (Auto) [place] # (Auto) Baso # (Auto) Seg Neutrophils % Seg Neuts % (Manual) Lymphocytes % (Manual) Nucleated RBC % Seg Neutrophils # Seg Neutrophils # Man Lymphocytes # (Manual) Monocytes # (Manual) Eosinophils # (Manual) PT INR APTT D-Dimer Heparin Anti-Xa Level ABG pH POC ABG pCO2 65.7 H POC ABG pO2 ABG pO2 ABG HCO3 ABG O2 Saturation ABG Base Excess ABG Hemoglobin 11.9 L ABG Oxyhemoglobin ABG Sodium ABG Potassium ABG Chloride 93.0 L ABG Glucose 244 H Oxyhemoglobin Carboxyhemoglobin Sodium Potassium Chloride Carbon Dioxide BUN Creatinine Glucose POC Glucose 221 H 248 H Lactic Acid Calcium Magnesium Ferritin Total Bilirubin Direct Bilirubin AST ALT Alkaline Phosphatase Lactate Dehydrogenase C-Reactive Protein Total Protein Albumin Triglycerides Lipase Arterial Blood Glucose 244 H Arterial Blood Ionized Calcium Urine WBC (Auto) Coronavirus (PCR) SARS-CoV-2 IgG Ab Crossmatch 06/17/20 06/17/20 06/17/20 17:47 23:11 23:29 WBC RBC Hgb Hct MCV MCH MCHC RDW Lymph % (Auto) [place] % (Auto) Lymph # (Auto) [place] # (Auto) Baso # (Auto) Seg Neutrophils % Seg Neuts % (Manual) Lymphocytes % (Manual) Nucleated RBC % Seg Neutrophils # Seg Neutrophils # Man Lymphocytes # (Manual) Monocytes # (Manual) Eosinophils # (Manual) PT INR APTT D-Dimer Heparin Anti-Xa Level ABG pH POC ABG pCO2 85.2 H POC ABG pO2 48.4 L ABG pO2 ABG HCO3 ABG O2 Saturation ABG Base Excess ABG Hemoglobin 8.0 L ABG Oxyhemoglobin ABG Sodium ABG Potassium ABG Chloride 95.0 L ABG Glucose 292 H Oxyhemoglobin Carboxyhemoglobin Sodium Potassium Chloride Carbon Dioxide BUN Creatinine Glucose POC Glucose 245 H 252 H Lactic Acid Calcium Magnesium Ferritin Total Bilirubin Direct Bilirubin AST ALT Alkaline Phosphatase Lactate Dehydrogenase C-Reactive Protein Total Protein Albumin Triglycerides Lipase Arterial Blood Glucose 292 H Arterial Blood Ionized Calcium Urine WBC (Auto) Coronavirus (PCR) SARS-CoV-2 IgG Ab Crossmatch 06/18/20 06/18/20 06/18/20 03:14 05:34 11:47 WBC RBC Hgb Hct MCV MCH MCHC RDW Lymph % (Auto) [place] % (Auto) Lymph # (Auto) [place] # (Auto) Baso # (Auto) Seg Neutrophils % Seg Neuts % (Manual) Lymphocytes % (Manual) Nucleated RBC % Seg Neutrophils # Seg Neutrophils # Man Lymphocytes # (Manual) Monocytes # (Manual) Eosinophils # (Manual) PT INR APTT D-Dimer Heparin Anti-Xa Level ABG pH POC ABG pCO2 65.4 H POC ABG pO2 160.7 H ABG pO2 ABG HCO3 ABG O2 Saturation ABG Base Excess ABG Hemoglobin 7.8 L ABG Oxyhemoglobin ABG Sodium ABG Potassium ABG Chloride 95.0 L ABG Glucose 251 H Oxyhemoglobin Carboxyhemoglobin Sodium Potassium Chloride Carbon Dioxide BUN Creatinine Glucose POC Glucose 243 H 263 H Lactic Acid Calcium Magnesium Ferritin Total Bilirubin Direct Bilirubin AST ALT Alkaline Phosphatase Lactate Dehydrogenase C-Reactive Protein Total Protein Albumin Triglycerides Lipase Arterial Blood Glucose 251 H Arterial Blood Ionized Calcium Urine WBC (Auto) Coronavirus (PCR) SARS-CoV-2 IgG Ab Crossmatch 06/18/20 06/18/20 06/19/20 17:31 23:33 04:32 WBC RBC Hgb Hct MCV MCH MCHC RDW Lymph % (Auto) [place] % (Auto) Lymph # (Auto) [place] # (Auto) Baso # (Auto) Seg Neutrophils % Seg Neuts % (Manual) Lymphocytes % (Manual) Nucleated RBC % Seg Neutrophils # Seg Neutrophils # Man Lymphocytes # (Manual) Monocytes # (Manual) Eosinophils # (Manual) PT INR APTT D-Dimer Heparin Anti-Xa Level ABG pH POC ABG pCO2 83.1 H POC ABG pO2 65.8 L ABG pO2 ABG HCO3 ABG O2 Saturation ABG Base Excess ABG Hemoglobin 8.9 L ABG Oxyhemoglobin ABG Sodium ABG Potassium ABG Chloride 96.0 L ABG Glucose 297 H Oxyhemoglobin Carboxyhemoglobin Sodium Potassium Chloride Carbon Dioxide BUN Creatinine Glucose POC Glucose 286 H 238 H Lactic Acid Calcium Magnesium Ferritin Total Bilirubin Direct Bilirubin AST ALT Alkaline Phosphatase Lactate Dehydrogenase C-Reactive Protein Total Protein Albumin Triglycerides Lipase Arterial Blood Glucose 297 H Arterial Blood Ionized Calcium Urine WBC (Auto) Coronavirus (PCR) SARS-CoV-2 IgG Ab Crossmatch 06/19/20 06/19/20 06/19/20 05:55 11:20 17:12 WBC RBC Hgb Hct MCV MCH MCHC RDW Lymph % (Auto) [place] % (Auto) Lymph # (Auto) [place] # (Auto) Baso # (Auto) Seg Neutrophils % Seg Neuts % (Manual) Lymphocytes % (Manual) Nucleated RBC % Seg Neutrophils # Seg Neutrophils # Man Lymphocytes # (Manual) Monocytes # (Manual) Eosinophils # (Manual) PT INR APTT D-Dimer Heparin Anti-Xa Level ABG pH POC ABG pCO2 POC ABG pO2 ABG pO2 ABG HCO3 ABG O2 Saturation ABG Base Excess ABG Hemoglobin ABG Oxyhemoglobin ABG Sodium ABG Potassium ABG Chloride ABG Glucose Oxyhemoglobin Carboxyhemoglobin Sodium Potassium Chloride Carbon Dioxide BUN Creatinine Glucose POC Glucose 274 H 282 H 298 H Lactic Acid Calcium Magnesium Ferritin Total Bilirubin Direct Bilirubin AST ALT Alkaline Phosphatase Lactate Dehydrogenase C-Reactive Protein Total Protein Albumin Triglycerides Lipase Arterial Blood Glucose Arterial Blood Ionized Calcium Urine WBC (Auto) Coronavirus (PCR) SARS-CoV-2 IgG Ab Crossmatch 06/19/20 06/20/20 06/20/20 23:08 03:33 06:01 WBC RBC Hgb Hct MCV MCH MCHC RDW Lymph % (Auto) [place] % (Auto) Lymph # (Auto) [place] # (Auto) Baso # (Auto) Seg Neutrophils % Seg Neuts % (Manual) Lymphocytes % (Manual) Nucleated RBC % Seg Neutrophils # Seg Neutrophils # Man Lymphocytes # (Manual) Monocytes # (Manual) Eosinophils # (Manual) PT INR APTT D-Dimer Heparin Anti-Xa Level ABG pH POC ABG pCO2 POC ABG pO2 ABG pO2 69.9 L ABG HCO3 50.8 H ABG O2 Saturation ABG Base Excess 24.2 H ABG Hemoglobin 5.8 L ABG Oxyhemoglobin ABG Sodium ABG Potassium ABG Chloride ABG Glucose Oxyhemoglobin Carboxyhemoglobin Sodium Potassium Chloride Carbon Dioxide BUN Creatinine Glucose POC Glucose 293 H 182 H Lactic Acid Calcium Magnesium Ferritin Total Bilirubin Direct Bilirubin AST ALT Alkaline Phosphatase Lactate Dehydrogenase C-Reactive Protein Total Protein Albumin Triglycerides Lipase Arterial Blood Glucose Arterial Blood Ionized Calcium Urine WBC (Auto) Coronavirus (PCR) SARS-CoV-2 IgG Ab Crossmatch 06/20/20 06/20/20 06/20/20 11:47 17:46 23:37 WBC RBC Hgb Hct MCV MCH MCHC RDW Lymph % (Auto) [place] % (Auto) Lymph # (Auto) [place] # (Auto) Baso # (Auto) Seg Neutrophils % Seg Neuts % (Manual) Lymphocytes % (Manual) Nucleated RBC % Seg Neutrophils # Seg Neutrophils # Man Lymphocytes # (Manual) Monocytes # (Manual) Eosinophils # (Manual) PT INR APTT D-Dimer Heparin Anti-Xa Level ABG pH POC ABG pCO2 POC ABG pO2 ABG pO2 ABG HCO3 ABG O2 Saturation ABG Base Excess ABG Hemoglobin ABG Oxyhemoglobin ABG Sodium ABG Potassium ABG Chloride ABG Glucose Oxyhemoglobin Carboxyhemoglobin Sodium Potassium Chloride Carbon Dioxide BUN Creatinine Glucose POC Glucose 170 H 215 H 256 H Lactic Acid Calcium Magnesium Ferritin Total Bilirubin Direct Bilirubin AST ALT Alkaline Phosphatase Lactate Dehydrogenase C-Reactive Protein Total Protein Albumin Triglycerides Lipase Arterial Blood Glucose Arterial Blood Ionized Calcium Urine WBC (Auto) Coronavirus (PCR) SARS-CoV-2 IgG Ab Crossmatch 06/21/20 06/21/20 06/21/20 04:00 05:14 05:51 WBC RBC Hgb Hct MCV MCH MCHC RDW Lymph % (Auto) [place] % (Auto) Lymph # (Auto) [place] # (Auto) Baso # (Auto) Seg Neutrophils % Seg Neuts % (Manual) Lymphocytes % (Manual) Nucleated RBC % Seg Neutrophils # Seg Neutrophils # Man Lymphocytes # (Manual) Monocytes # (Manual) Eosinophils # (Manual) PT INR APTT D-Dimer Heparin Anti-Xa Level ABG pH 7.474 H POC ABG pCO2 POC ABG pO2 ABG pO2 ABG HCO3 52.1 H ABG O2 Saturation ABG Base Excess 23.3 H ABG Hemoglobin 5.3 L ABG Oxyhemoglobin ABG Sodium ABG Potassium ABG Chloride ABG Glucose Oxyhemoglobin 93.8 L Carboxyhemoglobin Sodium Potassium Chloride Carbon Dioxide BUN Creatinine Glucose POC Glucose 122 H 129 H Lactic Acid Calcium Magnesium Ferritin Total Bilirubin Direct Bilirubin AST ALT Alkaline Phosphatase Lactate Dehydrogenase C-Reactive Protein Total Protein Albumin Triglycerides Lipase Arterial Blood Glucose Arterial Blood Ionized Calcium Urine WBC (Auto) Coronavirus (PCR) SARS-CoV-2 IgG Ab Crossmatch 06/21/20 06/21/20 06/21/20 11:00 11:00 11:42 WBC 14.2 H RBC 1.85 L Hgb 6.2 L Hct 19.5 L* MCV 105 H MCH 34 H MCHC RDW 18.0 H Lymph % (Auto) [place] % (Auto) Lymph # (Auto) [place] # (Auto) Baso # (Auto) Seg Neutrophils % Seg Neuts % (Manual) Lymphocytes % (Manual) Nucleated RBC % Seg Neutrophils # Seg Neutrophils # Man Lymphocytes # (Manual) Monocytes # (Manual) Eosinophils # (Manual) PT INR APTT D-Dimer Heparin Anti-Xa Level ABG pH POC ABG pCO2 POC ABG pO2 ABG pO2 ABG HCO3 ABG O2 Saturation ABG Base Excess ABG Hemoglobin ABG Oxyhemoglobin ABG Sodium ABG Potassium ABG Chloride ABG Glucose Oxyhemoglobin Carboxyhemoglobin Sodium 147 H Potassium Chloride Carbon Dioxide 51 H* BUN 31 H Creatinine 0.5 L Glucose 224 H POC Glucose 217 H Lactic Acid Calcium Magnesium Ferritin Total Bilirubin Direct Bilirubin AST ALT Alkaline Phosphatase Lactate Dehydrogenase C-Reactive Protein Total Protein Albumin Triglycerides Lipase Arterial Blood Glucose Arterial Blood Ionized Calcium Urine WBC (Auto) Coronavirus (PCR) SARS-CoV-2 IgG Ab Crossmatch 06/21/20 06/21/20 06/21/20 14:18 14:30 18:36 WBC RBC Hgb Hct MCV MCH MCHC RDW Lymph % (Auto) [place] % (Auto) Lymph # (Auto) [place] # (Auto) Baso # (Auto) Seg Neutrophils % Seg Neuts % (Manual) Lymphocytes % (Manual) Nucleated RBC % Seg Neutrophils # Seg Neutrophils # Man Lymphocytes # (Manual) Monocytes # (Manual) Eosinophils # (Manual) PT 15.1 H INR 1.19 H APTT D-Dimer Heparin Anti-Xa Level ABG pH POC ABG pCO2 POC ABG pO2 ABG pO2 ABG HCO3 ABG O2 Saturation ABG Base Excess ABG Hemoglobin ABG Oxyhemoglobin ABG Sodium ABG Potassium ABG Chloride ABG Glucose Oxyhemoglobin Carboxyhemoglobin Sodium Potassium Chloride Carbon Dioxide BUN Creatinine Glucose POC Glucose 185 H Lactic Acid Calcium Magnesium Ferritin Total Bilirubin Direct Bilirubin AST ALT Alkaline Phosphatase Lactate Dehydrogenase C-Reactive Protein Total Protein Albumin Triglycerides Lipase Arterial Blood Glucose Arterial Blood Ionized Calcium Urine WBC (Auto) Coronavirus (PCR) SARS-CoV-2 IgG Ab Crossmatch See Detail 06/21/20 06/22/20 06/22/20 21:14 03:50 04:00 WBC RBC Hgb Hct MCV MCH MCHC RDW Lymph % (Auto) [place] % (Auto) Lymph # (Auto) [place] # (Auto) Baso # (Auto) Seg Neutrophils % Seg Neuts % (Manual) Lymphocytes % (Manual) Nucleated RBC % Seg Neutrophils # Seg Neutrophils # Man Lymphocytes # (Manual) Monocytes # (Manual) Eosinophils # (Manual) PT INR APTT D-Dimer Heparin Anti-Xa Level ABG pH 7.451 H POC ABG pCO2 POC ABG pO2 ABG pO2 ABG HCO3 47.5 H ABG O2 Saturation ABG Base Excess 22.0 H ABG Hemoglobin < 5.1 L ABG Oxyhemoglobin ABG Sodium ABG Potassium ABG Chloride ABG Glucose Oxyhemoglobin 94.1 L Carboxyhemoglobin Sodium 149 H Potassium 3.5 L Chloride Carbon Dioxide 42 H* D BUN 34 H Creatinine 0.4 L Glucose 219 H POC Glucose 250 H Lactic Acid Calcium Magnesium Ferritin Total Bilirubin Direct Bilirubin AST ALT Alkaline Phosphatase Lactate Dehydrogenase C-Reactive Protein Total Protein Albumin Triglycerides Lipase Arterial Blood Glucose Arterial Blood Ionized Calcium Urine WBC (Auto) Coronavirus (PCR) SARS-CoV-2 IgG Ab Crossmatch 06/22/20 06/22/20 06/22/20 12:16 14:29 17:56 WBC RBC Hgb Hct MCV MCH MCHC RDW Lymph % (Auto) [place] % (Auto) Lymph # (Auto) [place] # (Auto) Baso # (Auto) Seg Neutrophils % Seg Neuts % (Manual) Lymphocytes % (Manual) Nucleated RBC % Seg Neutrophils # Seg Neutrophils # Man Lymphocytes # (Manual) Monocytes # (Manual) Eosinophils # (Manual) PT 11.8 L INR APTT 23.5 L D-Dimer Heparin Anti-Xa Level ABG pH POC ABG pCO2 POC ABG pO2 ABG pO2 ABG HCO3 ABG O2 Saturation ABG Base Excess ABG Hemoglobin ABG Oxyhemoglobin ABG Sodium ABG Potassium ABG Chloride ABG Glucose Oxyhemoglobin Carboxyhemoglobin Sodium Potassium Chloride Carbon Dioxide BUN Creatinine Glucose POC Glucose 215 H 215 H Lactic Acid Calcium Magnesium Ferritin Total Bilirubin Direct Bilirubin AST ALT Alkaline Phosphatase Lactate Dehydrogenase C-Reactive Protein Total Protein Albumin Triglycerides Lipase Arterial Blood Glucose Arterial Blood Ionized Calcium Urine WBC (Auto) Coronavirus (PCR) SARS-CoV-2 IgG Ab Crossmatch 06/22/20 06/22/20 06/22/20 23:36 23:45 Unknown WBC 14.1 H RBC 2.70 L Hgb 8.9 L 8.9 L Hct 26.9 L 27.2 L D MCV 101 H MCH 33 H MCHC RDW 17.7 H Lymph % (Auto) [place] % (Auto) Lymph # (Auto) [place] # (Auto) Baso # (Auto) Seg Neutrophils % Seg Neuts % (Manual) 92.0 H Lymphocytes % (Manual) 5.0 L Nucleated RBC % Seg Neutrophils # Seg Neutrophils # Man 13.0 H Lymphocytes # (Manual) 0.7 L Monocytes # (Manual) Eosinophils # (Manual) PT INR APTT D-Dimer Heparin Anti-Xa Level ABG pH POC ABG pCO2 POC ABG pO2 ABG pO2 ABG HCO3 ABG O2 Saturation ABG Base Excess ABG Hemoglobin ABG Oxyhemoglobin ABG Sodium ABG Potassium ABG Chloride ABG Glucose Oxyhemoglobin Carboxyhemoglobin Sodium Potassium Chloride Carbon Dioxide BUN Creatinine Glucose POC Glucose 208 H Lactic Acid Calcium Magnesium Ferritin Total Bilirubin Direct Bilirubin AST ALT Alkaline Phosphatase Lactate Dehydrogenase C-Reactive Protein Total Protein Albumin Triglycerides Lipase Arterial Blood Glucose Arterial Blood Ionized Calcium Urine WBC (Auto) Coronavirus (PCR) SARS-CoV-2 IgG Ab Crossmatch 06/23/20 06/23/20 06/23/20 05:17 05:19 06:50 WBC RBC Hgb Hct MCV MCH MCHC RDW Lymph % (Auto) [place] % (Auto) Lymph # (Auto) [place] # (Auto) Baso # (Auto) Seg Neutrophils % Seg Neuts % (Manual) Lymphocytes % (Manual) Nucleated RBC % Seg Neutrophils # Seg Neutrophils # Man Lymphocytes # (Manual) Monocytes # (Manual) Eosinophils # (Manual) PT INR APTT D-Dimer Heparin Anti-Xa Level ABG pH POC ABG pCO2 69.7 H POC ABG pO2 63.3 L ABG pO2 ABG HCO3 ABG O2 Saturation ABG Base Excess ABG Hemoglobin 10.1 L ABG Oxyhemoglobin ABG Sodium ABG Potassium 3.3 L ABG Chloride ABG Glucose 226 H Oxyhemoglobin Carboxyhemoglobin Sodium Potassium 3.0 L Chloride Carbon Dioxide 41 H* BUN 26 H Creatinine 0.4 L Glucose 209 H POC Glucose 200 H Lactic Acid Calcium Magnesium Ferritin Total Bilirubin Direct Bilirubin AST ALT Alkaline Phosphatase Lactate Dehydrogenase C-Reactive Protein Total Protein Albumin 2.9 L Triglycerides Lipase Arterial Blood Glucose 226 H Arterial Blood Ionized Calcium Urine WBC (Auto) Coronavirus (PCR) SARS-CoV-2 IgG Ab Crossmatch 06/23/20 06/23/20 06/23/20 09:41 12:04 18:16 WBC RBC Hgb 9.1 L Hct 28.0 L MCV MCH MCHC RDW Lymph % (Auto) [place] % (Auto) Lymph # (Auto) [place] # (Auto) Baso # (Auto) Seg Neutrophils % Seg Neuts % (Manual) Lymphocytes % (Manual) Nucleated RBC % Seg Neutrophils # Seg Neutrophils # Man Lymphocytes # (Manual) Monocytes # (Manual) Eosinophils # (Manual) PT INR APTT D-Dimer Heparin Anti-Xa Level ABG pH POC ABG pCO2 POC ABG pO2 ABG pO2 ABG HCO3 ABG O2 Saturation ABG Base Excess ABG Hemoglobin ABG Oxyhemoglobin ABG Sodium ABG Potassium ABG Chloride ABG Glucose Oxyhemoglobin Carboxyhemoglobin Sodium Potassium Chloride Carbon Dioxide BUN Creatinine Glucose POC Glucose 146 H 162 H Lactic Acid Calcium Magnesium Ferritin Total Bilirubin Direct Bilirubin AST ALT Alkaline Phosphatase Lactate Dehydrogenase C-Reactive Protein Total Protein Albumin Triglycerides Lipase Arterial Blood Glucose Arterial Blood Ionized Calcium Urine WBC (Auto) Coronavirus (PCR) SARS-CoV-2 IgG Ab Crossmatch 06/23/20 06/23/20 06/24/20 23:24 23:41 02:39 WBC RBC Hgb 8.2 L 8.8 L Hct 24.9 L 26.8 L MCV MCH MCHC RDW Lymph % (Auto) [place] % (Auto) Lymph # (Auto) [place] # (Auto) Baso # (Auto) Seg Neutrophils % Seg Neuts % (Manual) Lymphocytes % (Manual) Nucleated RBC % Seg Neutrophils # Seg Neutrophils # Man Lymphocytes # (Manual) Monocytes # (Manual) Eosinophils # (Manual) PT INR APTT D-Dimer Heparin Anti-Xa Level ABG pH POC ABG pCO2 POC ABG pO2 ABG pO2 ABG HCO3 ABG O2 Saturation ABG Base Excess ABG Hemoglobin ABG Oxyhemoglobin ABG Sodium ABG Potassium ABG Chloride ABG Glucose Oxyhemoglobin Carboxyhemoglobin Sodium Potassium Chloride Carbon Dioxide BUN Creatinine Glucose POC Glucose 248 H Lactic Acid Calcium Magnesium Ferritin Total Bilirubin Direct Bilirubin AST ALT Alkaline Phosphatase Lactate Dehydrogenase C-Reactive Protein Total Protein Albumin Triglycerides Lipase Arterial Blood Glucose Arterial Blood Ionized Calcium Urine WBC (Auto) Coronavirus (PCR) SARS-CoV-2 IgG Ab Crossmatch 06/24/20 06/24/20 06/24/20 02:39 02:45 05:31 WBC RBC Hgb Hct MCV MCH MCHC RDW Lymph % (Auto) [place] % (Auto) Lymph # (Auto) [place] # (Auto) Baso # (Auto) Seg Neutrophils % Seg Neuts % (Manual) Lymphocytes % (Manual) Nucleated RBC % Seg Neutrophils # Seg Neutrophils # Man Lymphocytes # (Manual) Monocytes # (Manual) Eosinophils # (Manual) PT INR APTT D-Dimer Heparin Anti-Xa Level ABG pH POC ABG pCO2 66.9 H POC ABG pO2 109.7 H ABG pO2 ABG HCO3 ABG O2 Saturation ABG Base Excess ABG Hemoglobin 9.7 L ABG Oxyhemoglobin ABG Sodium 135.0 L ABG Potassium ABG Chloride 97.0 L ABG Glucose 277 H Oxyhemoglobin Carboxyhemoglobin Sodium 136 L Potassium Chloride 95.0 L Carbon Dioxide 34 H D BUN 24 H Creatinine 0.3 L Glucose 260 H POC Glucose 164 H Lactic Acid Calcium Magnesium Ferritin Total Bilirubin Direct Bilirubin AST ALT Alkaline Phosphatase Lactate Dehydrogenase C-Reactive Protein Total Protein 5.2 L Albumin 2.6 L Triglycerides Lipase Arterial Blood Glucose 277 H Arterial Blood Ionized Calcium Urine WBC (Auto) Coronavirus (PCR) SARS-CoV-2 IgG Ab Crossmatch 06/24/20 06/24/20 06/24/20 10:00 11:49 17:39 WBC RBC Hgb 8.9 L Hct 26.5 L MCV MCH MCHC RDW Lymph % (Auto) [place] % (Auto) Lymph # (Auto) [place] # (Auto) Baso # (Auto) Seg Neutrophils % Seg Neuts % (Manual) Lymphocytes % (Manual) Nucleated RBC % Seg Neutrophils # Seg Neutrophils # Man Lymphocytes # (Manual) Monocytes # (Manual) Eosinophils # (Manual) PT INR APTT D-Dimer Heparin Anti-Xa Level ABG pH POC ABG pCO2 POC ABG pO2 ABG pO2 ABG HCO3 ABG O2 Saturation ABG Base Excess ABG Hemoglobin ABG Oxyhemoglobin ABG Sodium ABG Potassium ABG Chloride ABG Glucose Oxyhemoglobin Carboxyhemoglobin Sodium Potassium Chloride Carbon Dioxide BUN Creatinine Glucose POC Glucose 198 H 223 H Lactic Acid Calcium Magnesium Ferritin Total Bilirubin Direct Bilirubin AST ALT Alkaline Phosphatase Lactate Dehydrogenase C-Reactive Protein Total Protein Albumin Triglycerides Lipase Arterial Blood Glucose Arterial Blood Ionized Calcium Urine WBC (Auto) Coronavirus (PCR) SARS-CoV-2 IgG Ab Crossmatch 06/24/20 06/25/20 06/25/20 23:56 02:16 04:08 WBC RBC Hgb Hct MCV MCH MCHC RDW Lymph % (Auto) [place] % (Auto) Lymph # (Auto) [place] # (Auto) Baso # (Auto) Seg Neutrophils % Seg Neuts % (Manual) Lymphocytes % (Manual) Nucleated RBC % Seg Neutrophils # Seg Neutrophils # Man Lymphocytes # (Manual) Monocytes # (Manual) Eosinophils # (Manual) PT INR APTT D-Dimer Heparin Anti-Xa Level ABG pH 7.454 H POC ABG pCO2 56.9 H POC ABG pO2 61.0 L ABG pO2 ABG HCO3 ABG O2 Saturation ABG Base Excess ABG Hemoglobin ABG Oxyhemoglobin ABG Sodium 134.3 L ABG Potassium ABG Chloride 92.0 L ABG Glucose 246 H Oxyhemoglobin Carboxyhemoglobin Sodium 134 L Potassium Chloride 89.7 L Carbon Dioxide 36 H BUN Creatinine 0.3 L Glucose 254 H POC Glucose 225 H Lactic Acid Calcium Magnesium Ferritin Total Bilirubin Direct Bilirubin AST ALT Alkaline Phosphatase Lactate Dehydrogenase C-Reactive Protein Total Protein Albumin 2.9 L Triglycerides Lipase Arterial Blood Glucose 246 H Arterial Blood Ionized Calcium Urine WBC (Auto) Coronavirus (PCR) SARS-CoV-2 IgG Ab Crossmatch 06/25/20 06/25/20 06/25/20 05:44 11:35 17:33 WBC RBC Hgb Hct MCV MCH MCHC RDW Lymph % (Auto) [place] % (Auto) Lymph # (Auto) [place] # (Auto) Baso # (Auto) Seg Neutrophils % Seg Neuts % (Manual) Lymphocytes % (Manual) Nucleated RBC % Seg Neutrophils # Seg Neutrophils # Man Lymphocytes # (Manual) Monocytes # (Manual) Eosinophils # (Manual) PT INR APTT D-Dimer Heparin Anti-Xa Level ABG pH POC ABG pCO2 POC ABG pO2 ABG pO2 ABG HCO3 ABG O2 Saturation ABG Base Excess ABG Hemoglobin ABG Oxyhemoglobin ABG Sodium ABG Potassium ABG Chloride ABG Glucose Oxyhemoglobin Carboxyhemoglobin Sodium Potassium Chloride Carbon Dioxide BUN Creatinine Glucose POC Glucose 170 H 175 H 229 H Lactic Acid Calcium Magnesium Ferritin Total Bilirubin Direct Bilirubin AST ALT Alkaline Phosphatase Lactate Dehydrogenase C-Reactive Protein Total Protein Albumin Triglycerides Lipase Arterial Blood Glucose Arterial Blood Ionized Calcium Urine WBC (Auto) Coronavirus (PCR) SARS-CoV-2 IgG Ab Crossmatch 06/25/20 06/26/20 06/26/20 23:55 02:17 02:17 WBC RBC Hgb 10.0 L Hct 30.4 L MCV MCH MCHC RDW Lymph % (Auto) [place] % (Auto) Lymph # (Auto) [place] # (Auto) Baso # (Auto) Seg Neutrophils % Seg Neuts % (Manual) Lymphocytes % (Manual) Nucleated RBC % Seg Neutrophils # Seg Neutrophils # Man Lymphocytes # (Manual) Monocytes # (Manual) Eosinophils # (Manual) PT INR APTT D-Dimer Heparin Anti-Xa Level ABG pH POC ABG pCO2 POC ABG pO2 ABG pO2 ABG HCO3 ABG O2 Saturation ABG Base Excess ABG Hemoglobin ABG Oxyhemoglobin ABG Sodium ABG Potassium ABG Chloride ABG Glucose Oxyhemoglobin Carboxyhemoglobin Sodium 136 L Potassium Chloride 90.1 L Carbon Dioxide 39 H BUN Creatinine 0.2 L Glucose 232 H POC Glucose 192 H Lactic Acid Calcium Magnesium Ferritin Total Bilirubin Direct Bilirubin AST ALT Alkaline Phosphatase Lactate Dehydrogenase C-Reactive Protein Total Protein 6.1 L Albumin 2.9 L Triglycerides Lipase Arterial Blood Glucose Arterial Blood Ionized Calcium Urine WBC (Auto) Coronavirus (PCR) SARS-CoV-2 IgG Ab Crossmatch 06/26/20 06/26/20 06/26/20 04:15 04:49 05:28 WBC RBC Hgb Hct MCV MCH MCHC RDW Lymph % (Auto) [place] % (Auto) Lymph # (Auto) [place] # (Auto) Baso # (Auto) Seg Neutrophils % Seg Neuts % (Manual) Lymphocytes % (Manual) Nucleated RBC % Seg Neutrophils # Seg Neutrophils # Man Lymphocytes # (Manual) Monocytes # (Manual) Eosinophils # (Manual) PT INR APTT D-Dimer Heparin Anti-Xa Level ABG pH 7.453 H POC ABG pCO2 59.6 H POC ABG pO2 ABG pO2 ABG HCO3 ABG O2 Saturation ABG Base Excess ABG Hemoglobin 10.0 L ABG Oxyhemoglobin ABG Sodium 134.2 L ABG Potassium 3.3 L ABG Chloride 92.0 L ABG Glucose 305 H Oxyhemoglobin Carboxyhemoglobin Sodium Potassium Chloride Carbon Dioxide BUN Creatinine Glucose POC Glucose 234 H Lactic Acid Calcium Magnesium Ferritin Total Bilirubin Direct Bilirubin AST ALT Alkaline Phosphatase Lactate Dehydrogenase C-Reactive Protein Total Protein Albumin Triglycerides 203 H Lipase Arterial Blood Glucose 305 H Arterial Blood Ionized Calcium Urine WBC (Auto) Coronavirus (PCR) SARS-CoV-2 IgG Ab Crossmatch 06/26/20 06/26/20 06/26/20 11:58 17:58 21:32 WBC RBC Hgb Hct MCV MCH MCHC RDW Lymph % (Auto) [place] % (Auto) Lymph # (Auto) [place] # (Auto) Baso # (Auto) Seg Neutrophils % Seg Neuts % (Manual) Lymphocytes % (Manual) Nucleated RBC % Seg Neutrophils # Seg Neutrophils # Man Lymphocytes # (Manual) Monocytes # (Manual) Eosinophils # (Manual) PT INR APTT D-Dimer Heparin Anti-Xa Level ABG pH POC ABG pCO2 POC ABG pO2 ABG pO2 ABG HCO3 ABG O2 Saturation ABG Base Excess ABG Hemoglobin ABG Oxyhemoglobin ABG Sodium ABG Potassium ABG Chloride ABG Glucose Oxyhemoglobin Carboxyhemoglobin Sodium Potassium Chloride Carbon Dioxide BUN Creatinine Glucose POC Glucose 198 H 193 H 191 H Lactic Acid Calcium Magnesium Ferritin Total Bilirubin Direct Bilirubin AST ALT Alkaline Phosphatase Lactate Dehydrogenase C-Reactive Protein Total Protein Albumin Triglycerides Lipase Arterial Blood Glucose Arterial Blood Ionized Calcium Urine WBC (Auto) Coronavirus (PCR) SARS-CoV-2 IgG Ab Crossmatch 06/26/20 06/27/20 06/27/20 23:40 04:35 05:32 WBC RBC Hgb Hct MCV MCH MCHC RDW Lymph % (Auto) [place] % (Auto) Lymph # (Auto) [place] # (Auto) Baso # (Auto) Seg Neutrophils % Seg Neuts % (Manual) Lymphocytes % (Manual) Nucleated RBC % Seg Neutrophils # Seg Neutrophils # Man Lymphocytes # (Manual) Monocytes # (Manual) Eosinophils # (Manual) PT INR APTT D-Dimer Heparin Anti-Xa Level ABG pH 7.464 H POC ABG pCO2 60.8 H POC ABG pO2 ABG pO2 ABG HCO3 ABG O2 Saturation ABG Base Excess ABG Hemoglobin 10.1 L ABG Oxyhemoglobin ABG Sodium ABG Potassium 2.9 L ABG Chloride 92.0 L ABG Glucose 298 H Oxyhemoglobin Carboxyhemoglobin Sodium Potassium Chloride Carbon Dioxide BUN Creatinine Glucose POC Glucose 241 H 211 H Lactic Acid Calcium Magnesium Ferritin Total Bilirubin Direct Bilirubin AST ALT Alkaline Phosphatase Lactate Dehydrogenase C-Reactive Protein Total Protein Albumin Triglycerides Lipase Arterial Blood Glucose 298 H Arterial Blood Ionized Calcium Urine WBC (Auto) Coronavirus (PCR) SARS-CoV-2 IgG Ab Crossmatch 06/27/20 06/27/20 06/27/20 12:37 18:08 20:52 WBC RBC Hgb Hct MCV MCH MCHC RDW Lymph % (Auto) [place] % (Auto) Lymph # (Auto) [place] # (Auto) Baso # (Auto) Seg Neutrophils % Seg Neuts % (Manual) Lymphocytes % (Manual) Nucleated RBC % Seg Neutrophils # Seg Neutrophils # Man Lymphocytes # (Manual) Monocytes # (Manual) Eosinophils # (Manual) PT INR APTT D-Dimer Heparin Anti-Xa Level ABG pH POC ABG pCO2 POC ABG pO2 ABG pO2 ABG HCO3 ABG O2 Saturation ABG Base Excess ABG Hemoglobin ABG Oxyhemoglobin ABG Sodium ABG Potassium ABG Chloride ABG Glucose Oxyhemoglobin Carboxyhemoglobin Sodium Potassium Chloride Carbon Dioxide BUN Creatinine Glucose POC Glucose 182 H 197 H 195 H Lactic Acid Calcium Magnesium Ferritin Total Bilirubin Direct Bilirubin AST ALT Alkaline Phosphatase Lactate Dehydrogenase C-Reactive Protein Total Protein Albumin Triglycerides Lipase Arterial Blood Glucose Arterial Blood Ionized Calcium Urine WBC (Auto) Coronavirus (PCR) SARS-CoV-2 IgG Ab Crossmatch 06/27/20 06/28/20 06/28/20 Unknown 04:17 04:50 WBC RBC Hgb Hct MCV MCH MCHC RDW Lymph % (Auto) [place] % (Auto) Lymph # (Auto) [place] # (Auto) Baso # (Auto) Seg Neutrophils % Seg Neuts % (Manual) Lymphocytes % (Manual) Nucleated RBC % Seg Neutrophils # Seg Neutrophils # Man Lymphocytes # (Manual) Monocytes # (Manual) Eosinophils # (Manual) PT INR APTT D-Dimer Heparin Anti-Xa Level ABG pH POC ABG pCO2 58.6 H POC ABG pO2 60.1 L ABG pO2 ABG HCO3 ABG O2 Saturation ABG Base Excess ABG Hemoglobin 10.0 L ABG Oxyhemoglobin ABG Sodium 125.3 L ABG Potassium ABG Chloride 93.0 L ABG Glucose 308 H Oxyhemoglobin Carboxyhemoglobin Sodium Potassium 2.9 L* Chloride 93.4 L Carbon Dioxide 42 H* BUN Creatinine 0.3 L Glucose 211 H POC Glucose 252 H Lactic Acid Calcium 8.1 L Magnesium Ferritin Total Bilirubin Direct Bilirubin AST ALT Alkaline Phosphatase Lactate Dehydrogenase C-Reactive Protein Total Protein 5.1 L Albumin 2.4 L Triglycerides Lipase Arterial Blood Glucose 308 H Arterial Blood Ionized Calcium Urine WBC (Auto) Coronavirus (PCR) SARS-CoV-2 IgG Ab Crossmatch 06/28/20 06/28/20 06/28/20 06:35 06:35 11:36 WBC 18.9 H RBC 2.85 L Hgb 9.5 L Hct 28.4 L MCV 100 H MCH 33 H MCHC RDW 17.3 H Lymph % (Auto) [place] % (Auto) Lymph # (Auto) [place] # (Auto) Baso # (Auto) Seg Neutrophils % 88.6 H Seg Neuts % (Manual) 95.0 H Lymphocytes % (Manual) 1.0 L Nucleated RBC % Seg Neutrophils # 15.9 H Seg Neutrophils # Man 18.0 H Lymphocytes # (Manual) 0.2 L Monocytes # (Manual) Eosinophils # (Manual) PT INR APTT D-Dimer Heparin Anti-Xa Level ABG pH POC ABG pCO2 POC ABG pO2 ABG pO2 ABG HCO3 ABG O2 Saturation ABG Base Excess ABG Hemoglobin ABG Oxyhemoglobin ABG Sodium ABG Potassium ABG Chloride ABG Glucose Oxyhemoglobin Carboxyhemoglobin Sodium Potassium Chloride 94.2 L Carbon Dioxide 38 H BUN Creatinine 0.3 L Glucose 228 H POC Glucose 243 H Lactic Acid Calcium Magnesium Ferritin Total Bilirubin Direct Bilirubin AST ALT Alkaline Phosphatase Lactate Dehydrogenase C-Reactive Protein Total Protein 6.1 L Albumin 2.7 L Triglycerides Lipase Arterial Blood Glucose Arterial Blood Ionized Calcium Urine WBC (Auto) Coronavirus (PCR) SARS-CoV-2 IgG Ab Crossmatch 06/28/20 06/28/20 06/29/20 16:53 21:10 00:06 WBC RBC Hgb Hct MCV MCH MCHC RDW Lymph % (Auto) [place] % (Auto) Lymph # (Auto) [place] # (Auto) Baso # (Auto) Seg Neutrophils % Seg Neuts % (Manual) Lymphocytes % (Manual) Nucleated RBC % Seg Neutrophils # Seg Neutrophils # Man Lymphocytes # (Manual) Monocytes # (Manual) Eosinophils # (Manual) PT INR APTT D-Dimer Heparin Anti-Xa Level ABG pH POC ABG pCO2 POC ABG pO2 ABG pO2 ABG HCO3 ABG O2 Saturation ABG Base Excess ABG Hemoglobin ABG Oxyhemoglobin ABG Sodium ABG Potassium ABG Chloride ABG Glucose Oxyhemoglobin Carboxyhemoglobin Sodium Potassium Chloride Carbon Dioxide BUN Creatinine Glucose POC Glucose 211 H 195 H 200 H Lactic Acid Calcium Magnesium Ferritin Total Bilirubin Direct Bilirubin AST ALT Alkaline Phosphatase Lactate Dehydrogenase C-Reactive Protein Total Protein Albumin Triglycerides Lipase Arterial Blood Glucose Arterial Blood Ionized Calcium Urine WBC (Auto) Coronavirus (PCR) SARS-CoV-2 IgG Ab Crossmatch 06/29/20 06/29/20 06/29/20 03:11 04:00 04:00 WBC 18.8 H RBC 2.82 L Hgb 10.1 L Hct 28.5 L MCV 101 H MCH 36 H MCHC 36 H RDW 17.5 H Lymph % (Auto) 10.7 L [place] % (Auto) Lymph # (Auto) [place] # (Auto) 1.0 H Baso # (Auto) 0.3 H Seg Neutrophils % 82.2 H Seg Neuts % (Manual) Lymphocytes % (Manual) Nucleated RBC % Seg Neutrophils # 15.5 H Seg Neutrophils # Man Lymphocytes # (Manual) Monocytes # (Manual) Eosinophils # (Manual) PT INR APTT D-Dimer Heparin Anti-Xa Level ABG pH POC ABG pCO2 57.5 H POC ABG pO2 69.1 L ABG pO2 ABG HCO3 ABG O2 Saturation ABG Base Excess ABG Hemoglobin 10.2 L ABG Oxyhemoglobin 92.3 L ABG Sodium 130.7 L ABG Potassium 3.2 L ABG Chloride 93.0 L ABG Glucose 228 H Oxyhemoglobin Carboxyhemoglobin Sodium 134 L Potassium 3.3 L Chloride 89.5 L Carbon Dioxide 40 H BUN Creatinine 0.2 L Glucose 190 H POC Glucose Lactic Acid Calcium Magnesium Ferritin Total Bilirubin Direct Bilirubin AST < 5 L ALT < 5 L Alkaline Phosphatase Lactate Dehydrogenase C-Reactive Protein Total Protein 5.9 L Albumin 2.2 L Triglycerides Lipase Arterial Blood Glucose 228 H Arterial Blood Ionized Calcium Urine WBC (Auto) Coronavirus (PCR) SARS-CoV-2 IgG Ab Crossmatch 06/29/20 06/29/20 06/29/20 05:00 05:23 09:36 WBC RBC Hgb Hct MCV MCH MCHC RDW Lymph % (Auto) [place] % (Auto) Lymph # (Auto) [place] # (Auto) Baso # (Auto) Seg Neutrophils % Seg Neuts % (Manual) Lymphocytes % (Manual) Nucleated RBC % Seg Neutrophils # Seg Neutrophils # Man Lymphocytes # (Manual) Monocytes # (Manual) Eosinophils # (Manual) PT INR APTT D-Dimer Heparin Anti-Xa Level ABG pH POC ABG pCO2 POC ABG pO2 ABG pO2 ABG HCO3 ABG O2 Saturation ABG Base Excess ABG Hemoglobin ABG Oxyhemoglobin ABG Sodium ABG Potassium ABG Chloride ABG Glucose Oxyhemoglobin Carboxyhemoglobin Sodium Potassium Chloride Carbon Dioxide BUN Creatinine Glucose POC Glucose 165 H Lactic Acid Calcium Magnesium Ferritin Total Bilirubin Direct Bilirubin AST ALT Alkaline Phosphatase Lactate Dehydrogenase C-Reactive Protein Total Protein Albumin Triglycerides 1544 H 1799 H Lipase Arterial Blood Glucose Arterial Blood Ionized Calcium Urine WBC (Auto) Coronavirus (PCR) SARS-CoV-2 IgG Ab Crossmatch 06/29/20 06/29/20 06/29/20 09:36 12:02 18:00 WBC RBC Hgb Hct MCV MCH MCHC RDW Lymph % (Auto) [place] % (Auto) Lymph # (Auto) [place] # (Auto) Baso # (Auto) Seg Neutrophils % Seg Neuts % (Manual) Lymphocytes % (Manual) Nucleated RBC % Seg Neutrophils # Seg Neutrophils # Man Lymphocytes # (Manual) Monocytes # (Manual) Eosinophils # (Manual) PT INR APTT D-Dimer Heparin Anti-Xa Level ABG pH POC ABG pCO2 POC ABG pO2 ABG pO2 ABG HCO3 ABG O2 Saturation ABG Base Excess ABG Hemoglobin ABG Oxyhemoglobin ABG Sodium ABG Potassium ABG Chloride ABG Glucose Oxyhemoglobin Carboxyhemoglobin Sodium Potassium Chloride Carbon Dioxide BUN Creatinine Glucose POC Glucose 197 H 187 H Lactic Acid Calcium Magnesium Ferritin Total Bilirubin Direct Bilirubin AST ALT Alkaline Phosphatase Lactate Dehydrogenase C-Reactive Protein Total Protein Albumin Triglycerides Lipase 86 H Arterial Blood Glucose Arterial Blood Ionized Calcium Urine WBC (Auto) Coronavirus (PCR) SARS-CoV-2 IgG Ab Crossmatch 06/29/20 06/30/20 06/30/20 23:33 03:46 05:50 WBC RBC Hgb Hct MCV MCH MCHC RDW Lymph % (Auto) [place] % (Auto) Lymph # (Auto) [place] # (Auto) Baso # (Auto) Seg Neutrophils % Seg Neuts % (Manual) Lymphocytes % (Manual) Nucleated RBC % Seg Neutrophils # Seg Neutrophils # Man Lymphocytes # (Manual) Monocytes # (Manual) Eosinophils # (Manual) PT INR APTT D-Dimer Heparin Anti-Xa Level ABG pH 7.466 H POC ABG pCO2 57.3 H POC ABG pO2 66.1 L ABG pO2 ABG HCO3 ABG O2 Saturation ABG Base Excess ABG Hemoglobin 10.2 L ABG Oxyhemoglobin 92.3 L ABG Sodium 134.4 L ABG Potassium 3.2 L ABG Chloride 94.0 L ABG Glucose 178 H Oxyhemoglobin Carboxyhemoglobin Sodium Potassium Chloride Carbon Dioxide BUN Creatinine Glucose POC Glucose 170 H 170 H Lactic Acid Calcium Magnesium Ferritin Total Bilirubin Direct Bilirubin AST ALT Alkaline Phosphatase Lactate Dehydrogenase C-Reactive Protein Total Protein Albumin Triglycerides Lipase Arterial Blood Glucose 178 H Arterial Blood Ionized Calcium Urine WBC (Auto) Coronavirus (PCR) SARS-CoV-2 IgG Ab Crossmatch 06/30/20 06/30/20 06/30/20 07:00 07:00 12:04 WBC 15.6 H RBC 2.91 L Hgb 9.8 L Hct 29.7 L MCV 102 H MCH 34 H MCHC RDW 17.8 H Lymph % (Auto) [place] % (Auto) Lymph # (Auto) [place] # (Auto) Baso # (Auto) Seg Neutrophils % Seg Neuts % (Manual) Lymphocytes % (Manual) 5.0 L Nucleated RBC % Seg Neutrophils # Seg Neutrophils # Man 14.8 H Lymphocytes # (Manual) 0.8 L Monocytes # (Manual) Eosinophils # (Manual) PT INR APTT D-Dimer Heparin Anti-Xa Level ABG pH POC ABG pCO2 POC ABG pO2 ABG pO2 ABG HCO3 ABG O2 Saturation ABG Base Excess ABG Hemoglobin ABG Oxyhemoglobin ABG Sodium ABG Potassium ABG Chloride ABG Glucose Oxyhemoglobin Carboxyhemoglobin Sodium Potassium Chloride 93.3 L Carbon Dioxide 43 H* BUN Creatinine 0.3 L Glucose 260 H POC Glucose 245 H Lactic Acid Calcium Magnesium Ferritin Total Bilirubin Direct Bilirubin AST ALT Alkaline Phosphatase Lactate Dehydrogenase C-Reactive Protein Total Protein Albumin 2.8 L Triglycerides 452 H Lipase Arterial Blood Glucose Arterial Blood Ionized Calcium Urine WBC (Auto) Coronavirus (PCR) SARS-CoV-2 IgG Ab Crossmatch 06/30/20 07/01/20 07/01/20 17:32 00:02 05:02 WBC RBC Hgb Hct MCV MCH MCHC RDW Lymph % (Auto) [place] % (Auto) Lymph # (Auto) [place] # (Auto) Baso # (Auto) Seg Neutrophils % Seg Neuts % (Manual) Lymphocytes % (Manual) Nucleated RBC % Seg Neutrophils # Seg Neutrophils # Man Lymphocytes # (Manual) Monocytes # (Manual) Eosinophils # (Manual) PT INR APTT D-Dimer Heparin Anti-Xa Level ABG pH POC ABG pCO2 58.1 H POC ABG pO2 ABG pO2 ABG HCO3 ABG O2 Saturation ABG Base Excess ABG Hemoglobin 11.2 L ABG Oxyhemoglobin ABG Sodium 132.7 L ABG Potassium ABG Chloride 92.0 L ABG Glucose 238 H Oxyhemoglobin Carboxyhemoglobin Sodium Potassium Chloride Carbon Dioxide BUN Creatinine Glucose POC Glucose 209 H 208 H Lactic Acid Calcium Magnesium Ferritin Total Bilirubin Direct Bilirubin AST ALT Alkaline Phosphatase Lactate Dehydrogenase C-Reactive Protein Total Protein Albumin Triglycerides Lipase Arterial Blood Glucose 238 H Arterial Blood Ionized Calcium Urine WBC (Auto) Coronavirus (PCR) SARS-CoV-2 IgG Ab Crossmatch 07/01/20 07/01/20 07/01/20 06:16 06:41 06:41 WBC 18.1 H RBC 2.33 L Hgb 7.1 L Hct 21.3 L D MCV MCH MCHC RDW Lymph % (Auto) [place] % (Auto) Lymph # (Auto) [place] # (Auto) Baso # (Auto) Seg Neutrophils % Seg Neuts % (Manual) 82.0 H Lymphocytes % (Manual) 7.0 L Nucleated RBC % 1.0 H Seg Neutrophils # Seg Neutrophils # Man 14.8 H Lymphocytes # (Manual) Monocytes # (Manual) 1.1 H Eosinophils # (Manual) 0.5 H PT INR APTT D-Dimer Heparin Anti-Xa Level < 0.10 L ABG pH POC ABG pCO2 POC ABG pO2 ABG pO2 ABG HCO3 ABG O2 Saturation ABG Base Excess ABG Hemoglobin ABG Oxyhemoglobin ABG Sodium ABG Potassium ABG Chloride ABG Glucose Oxyhemoglobin Carboxyhemoglobin Sodium Potassium Chloride Carbon Dioxide BUN Creatinine Glucose POC Glucose 180 H Lactic Acid Calcium Magnesium Ferritin Total Bilirubin Direct Bilirubin AST ALT Alkaline Phosphatase Lactate Dehydrogenase C-Reactive Protein Total Protein Albumin Triglycerides Lipase Arterial Blood Glucose Arterial Blood Ionized Calcium Urine WBC (Auto) Coronavirus (PCR) SARS-CoV-2 IgG Ab Crossmatch 12/24/20 12/24/20 12/24/20 08:11 12:04 16:16 WBC RBC Hgb Hct MCV MCH MCHC RDW Lymph % (Auto) [place] % (Auto) Lymph # (Auto) [place] # (Auto) Baso # (Auto) Seg Neutrophils % Seg Neuts % (Manual) Lymphocytes % (Manual) Nucleated RBC % Seg Neutrophils # Seg Neutrophils # Man Lymphocytes # (Manual) Monocytes # (Manual) Eosinophils # (Manual) PT INR APTT D-Dimer Heparin Anti-Xa Level 1.02 H ABG pH POC ABG pCO2 POC ABG pO2 ABG pO2 ABG HCO3 ABG O2 Saturation ABG Base Excess ABG Hemoglobin ABG Oxyhemoglobin ABG Sodium ABG Potassium ABG Chloride ABG Glucose Oxyhemoglobin Carboxyhemoglobin Sodium 135 L Potassium 3.0 L Chloride 93.1 L Carbon Dioxide 40 H BUN Creatinine 0.3 L Glucose 140 H POC Glucose 223 H Lactic Acid Calcium Magnesium Ferritin Total Bilirubin Direct Bilirubin AST ALT Alkaline Phosphatase Lactate Dehydrogenase C-Reactive Protein Total Protein Albumin Triglycerides Lipase Arterial Blood Glucose Arterial Blood Ionized Calcium Urine WBC (Auto) Coronavirus (PCR) SARS-CoV-2 IgG Ab Crossmatch 07/01/20 07/01/20 07/02/20 17:09 23:19 00:56 WBC RBC Hgb Hct MCV MCH MCHC RDW Lymph % (Auto) [place] % (Auto) Lymph # (Auto) [place] # (Auto) Baso # (Auto) Seg Neutrophils % Seg Neuts % (Manual) Lymphocytes % (Manual) Nucleated RBC % Seg Neutrophils # Seg Neutrophils # Man Lymphocytes # (Manual) Monocytes # (Manual) Eosinophils # (Manual) PT INR APTT D-Dimer Heparin Anti-Xa Level 0.22 L ABG pH POC ABG pCO2 POC ABG pO2 ABG pO2 ABG HCO3 ABG O2 Saturation ABG Base Excess ABG Hemoglobin ABG Oxyhemoglobin ABG Sodium ABG Potassium ABG Chloride ABG Glucose Oxyhemoglobin Carboxyhemoglobin Sodium Potassium Chloride Carbon Dioxide BUN Creatinine Glucose POC Glucose 233 H 255 H Lactic Acid Calcium Magnesium Ferritin Total Bilirubin Direct Bilirubin AST ALT Alkaline Phosphatase Lactate Dehydrogenase C-Reactive Protein Total Protein Albumin Triglycerides Lipase Arterial Blood Glucose Arterial Blood Ionized Calcium Urine WBC (Auto) Coronavirus (PCR) SARS-CoV-2 IgG Ab Crossmatch 07/02/20 07/02/20 07/02/20 03:51 05:35 11:39 WBC RBC Hgb Hct MCV MCH MCHC RDW Lymph % (Auto) [place] % (Auto) Lymph # (Auto) [place] # (Auto) Baso # (Auto) Seg Neutrophils % Seg Neuts % (Manual) Lymphocytes % (Manual) Nucleated RBC % Seg Neutrophils # Seg Neutrophils # Man Lymphocytes # (Manual) Monocytes # (Manual) Eosinophils # (Manual) PT INR APTT D-Dimer Heparin Anti-Xa Level ABG pH POC ABG pCO2 54.9 H POC ABG pO2 52.1 L ABG pO2 ABG HCO3 ABG O2 Saturation ABG Base Excess ABG Hemoglobin 11.9 L ABG Oxyhemoglobin 82.8 L ABG Sodium 130.2 L ABG Potassium ABG Chloride 92.0 L ABG Glucose 249 H Oxyhemoglobin Carboxyhemoglobin 1.9 H Sodium Potassium Chloride Carbon Dioxide BUN Creatinine Glucose POC Glucose 205 H 235 H Lactic Acid Calcium Magnesium Ferritin Total Bilirubin Direct Bilirubin AST ALT Alkaline Phosphatase Lactate Dehydrogenase C-Reactive Protein Total Protein Albumin Triglycerides Lipase Arterial Blood Glucose 249 H Arterial Blood Ionized Calcium Urine WBC (Auto) Coronavirus (PCR) SARS-CoV-2 IgG Ab Crossmatch 07/02/20 07/02/20 07/02/20 16:08 16:08 17:54 WBC 19.8 H RBC 3.28 L Hgb 10.7 L D Hct 32.7 L D MCV 100 H MCH 33 H MCHC RDW 17.2 H Lymph % (Auto) [place] % (Auto) Lymph # (Auto) [place] # (Auto) Baso # (Auto) Seg Neutrophils % Seg Neuts % (Manual) Lymphocytes % (Manual) Nucleated RBC % Seg Neutrophils # Seg Neutrophils # Man Lymphocytes # (Manual) Monocytes # (Manual) Eosinophils # (Manual) PT INR APTT D-Dimer Heparin Anti-Xa Level ABG pH POC ABG pCO2 POC ABG pO2 ABG pO2 ABG HCO3 ABG O2 Saturation ABG Base Excess ABG Hemoglobin ABG Oxyhemoglobin ABG Sodium ABG Potassium ABG Chloride ABG Glucose Oxyhemoglobin Carboxyhemoglobin Sodium 136 L Potassium Chloride 92.4 L Carbon Dioxide 35 H BUN Creatinine 0.3 L Glucose 203 H POC Glucose 175 H Lactic Acid Calcium Magnesium Ferritin Total Bilirubin Direct Bilirubin AST ALT Alkaline Phosphatase Lactate Dehydrogenase C-Reactive Protein Total Protein Albumin Triglycerides Lipase Arterial Blood Glucose Arterial Blood Ionized Calcium Urine WBC (Auto) Coronavirus (PCR) SARS-CoV-2 IgG Ab Crossmatch 07/02/20 07/03/2020 23:46 03:25 05:54 WBC RBC Hgb Hct MCV MCH MCHC RDW Lymph % (Auto) [place] % (Auto) Lymph # (Auto) [place] # (Auto) Baso # (Auto) Seg Neutrophils % Seg Neuts % (Manual) Lymphocytes % (Manual) Nucleated RBC % Seg Neutrophils # Seg Neutrophils # Man Lymphocytes # (Manual) Monocytes # (Manual) Eosinophils # (Manual) PT INR APTT D-Dimer Heparin Anti-Xa Level ABG pH 7.468 H POC ABG pCO2 51.5 H POC ABG pO2 ABG pO2 ABG HCO3 ABG O2 Saturation ABG Base Excess ABG Hemoglobin ABG Oxyhemoglobin ABG Sodium 130.2 L ABG Potassium ABG Chloride 91.0 L ABG Glucose 210 H Oxyhemoglobin Carboxyhemoglobin 1.6 H Sodium Potassium Chloride Carbon Dioxide BUN Creatinine Glucose POC Glucose 173 H 125 H Lactic Acid Calcium Magnesium Ferritin Total Bilirubin Direct Bilirubin AST ALT Alkaline Phosphatase Lactate Dehydrogenase C-Reactive Protein Total Protein Albumin Triglycerides Lipase Arterial Blood Glucose 210 H Arterial Blood Ionized Calcium Urine WBC (Auto) Coronavirus (PCR) SARS-CoV-2 IgG Ab Crossmatch 07/03/20 07/03/20 07/03/20 11:43 12:20 12:20 WBC 16.5 H RBC 3.13 L Hgb 10.4 L Hct 31.8 L MCV 102 H MCH 33 H MCHC RDW 17.2 H Lymph % (Auto) [place] % (Auto) Lymph # (Auto) [place] # (Auto) Baso # (Auto) Seg Neutrophils % Seg Neuts % (Manual) Lymphocytes % (Manual) Nucleated RBC % Seg Neutrophils # Seg Neutrophils # Man Lymphocytes # (Manual) Monocytes # (Manual) Eosinophils # (Manual) PT INR APTT D-Dimer Heparin Anti-Xa Level ABG pH POC ABG pCO2 POC ABG pO2 ABG pO2 ABG HCO3 ABG O2 Saturation ABG Base Excess ABG Hemoglobin ABG Oxyhemoglobin ABG Sodium ABG Potassium ABG Chloride ABG Glucose Oxyhemoglobin Carboxyhemoglobin Sodium 132 L Potassium Chloride 88.5 L Carbon Dioxide 37 H BUN Creatinine 0.3 L Glucose 230 H POC Glucose 223 H Lactic Acid Calcium Magnesium Ferritin Total Bilirubin Direct Bilirubin AST ALT Alkaline Phosphatase Lactate Dehydrogenase C-Reactive Protein Total Protein Albumin Triglycerides Lipase Arterial Blood Glucose Arterial Blood Ionized Calcium Urine WBC (Auto) Coronavirus (PCR) SARS-CoV-2 IgG Ab Crossmatch 07/03/20 07/03/20 07/04/20 17:24 21:41 00:54 WBC RBC Hgb Hct MCV MCH MCHC RDW Lymph % (Auto) [place] % (Auto) Lymph # (Auto) [place] # (Auto) Baso # (Auto) Seg Neutrophils % Seg Neuts % (Manual) Lymphocytes % (Manual) Nucleated RBC % Seg Neutrophils # Seg Neutrophils # Man Lymphocytes # (Manual) Monocytes # (Manual) Eosinophils # (Manual) PT INR APTT D-Dimer Heparin Anti-Xa Level ABG pH POC ABG pCO2 POC ABG pO2 ABG pO2 ABG HCO3 ABG O2 Saturation ABG Base Excess ABG Hemoglobin ABG Oxyhemoglobin ABG Sodium ABG Potassium ABG Chloride ABG Glucose Oxyhemoglobin Carboxyhemoglobin Sodium Potassium Chloride Carbon Dioxide BUN Creatinine Glucose POC Glucose 163 H 220 H 195 H Lactic Acid Calcium Magnesium Ferritin Total Bilirubin Direct Bilirubin AST ALT Alkaline Phosphatase Lactate Dehydrogenase C-Reactive Protein Total Protein Albumin Triglycerides Lipase Arterial Blood Glucose Arterial Blood Ionized Calcium Urine WBC (Auto) Coronavirus (PCR) SARS-CoV-2 IgG Ab Crossmatch 07/04/20 07/04/20 07/04/20 03:25 04:00 04:00 WBC 14.9 H RBC 2.91 L Hgb 9.5 L Hct 29.2 L MCV 100 H MCH 33 H MCHC RDW 16.7 H Lymph % (Auto) 8.4 L [place] % (Auto) Lymph # (Auto) [place] # (Auto) 1.1 H Baso # (Auto) Seg Neutrophils % 84.2 H Seg Neuts % (Manual) Lymphocytes % (Manual) Nucleated RBC % Seg Neutrophils # 12.6 H Seg Neutrophils # Man Lymphocytes # (Manual) Monocytes # (Manual) Eosinophils # (Manual) PT INR APTT D-Dimer Heparin Anti-Xa Level ABG pH 7.474 H POC ABG pCO2 POC ABG pO2 51.8 L ABG pO2 ABG HCO3 ABG O2 Saturation ABG Base Excess ABG Hemoglobin ABG Oxyhemoglobin ABG Sodium ABG Potassium ABG Chloride ABG Glucose Oxyhemoglobin Carboxyhemoglobin Sodium Potassium 3.4 L Chloride 92.1 L Carbon Dioxide 34 H BUN Creatinine 0.3 L Glucose 173 H POC Glucose Lactic Acid Calcium Magnesium Ferritin Total Bilirubin Direct Bilirubin AST ALT Alkaline Phosphatase Lactate Dehydrogenase C-Reactive Protein Total Protein Albumin Triglycerides Lipase Arterial Blood Glucose Arterial Blood Ionized Calcium Urine WBC (Auto) Coronavirus (PCR) SARS-CoV-2 IgG Ab Crossmatch 07/04/20 07/04/20 07/04/20 06:18 11:39 17:18 WBC RBC Hgb Hct MCV MCH MCHC RDW Lymph % (Auto) [place] % (Auto) Lymph # (Auto) [place] # (Auto) Baso # (Auto) Seg Neutrophils % Seg Neuts % (Manual) Lymphocytes % (Manual) Nucleated RBC % Seg Neutrophils # Seg Neutrophils # Man Lymphocytes # (Manual) Monocytes # (Manual) Eosinophils # (Manual) PT INR APTT D-Dimer Heparin Anti-Xa Level ABG pH POC ABG pCO2 POC ABG pO2 ABG pO2 ABG HCO3 ABG O2 Saturation ABG Base Excess ABG Hemoglobin ABG Oxyhemoglobin ABG Sodium ABG Potassium ABG Chloride ABG Glucose Oxyhemoglobin Carboxyhemoglobin Sodium Potassium Chloride Carbon Dioxide BUN Creatinine Glucose POC Glucose 158 H 257 H 148 H Lactic Acid Calcium Magnesium Ferritin Total Bilirubin Direct Bilirubin AST ALT Alkaline Phosphatase Lactate Dehydrogenase C-Reactive Protein Total Protein Albumin Triglycerides Lipase Arterial Blood Glucose Arterial Blood Ionized Calcium Urine WBC (Auto) Coronavirus (PCR) SARS-CoV-2 IgG Ab Crossmatch 07/04/20 07/05/20 07/05/20 23:23 03:13 05:18 WBC 13.3 H RBC 2.90 L Hgb 9.8 L Hct 29.3 L MCV 101 H MCH 34 H MCHC RDW 17.0 H Lymph % (Auto) 11.1 L [place] % (Auto) Lymph # (Auto) [place] # (Auto) Baso # (Auto) Seg Neutrophils % 82.3 H Seg Neuts % (Manual) Lymphocytes % (Manual) Nucleated RBC % Seg Neutrophils # 10.9 H Seg Neutrophils # Man Lymphocytes # (Manual) Monocytes # (Manual) Eosinophils # (Manual) PT INR APTT D-Dimer Heparin Anti-Xa Level ABG pH 7.48 H POC ABG pCO2 52.0 H POC ABG pO2 ABG pO2 ABG HCO3 ABG O2 Saturation ABG Base Excess ABG Hemoglobin 10.0 L ABG Oxyhemoglobin ABG Sodium 131.0 L ABG Potassium 3.3 L ABG Chloride 93.0 L ABG Glucose 177 H Oxyhemoglobin Carboxyhemoglobin Sodium Potassium Chloride Carbon Dioxide BUN Creatinine Glucose POC Glucose 227 H Lactic Acid Calcium Magnesium Ferritin Total Bilirubin Direct Bilirubin AST ALT Alkaline Phosphatase Lactate Dehydrogenase C-Reactive Protein Total Protein Albumin Triglycerides Lipase Arterial Blood Glucose 177 H Arterial Blood Ionized Calcium Urine WBC (Auto) Coronavirus (PCR) SARS-CoV-2 IgG Ab Crossmatch 07/05/20 07/05/20 07/05/20 05:18 05:25 05:57 WBC RBC Hgb Hct MCV MCH MCHC RDW Lymph % (Auto) [place] % (Auto) Lymph # (Auto) [place] # (Auto) Baso # (Auto) Seg Neutrophils % Seg Neuts % (Manual) Lymphocytes % (Manual) Nucleated RBC % Seg Neutrophils # Seg Neutrophils # Man Lymphocytes # (Manual) Monocytes # (Manual) Eosinophils # (Manual) PT INR APTT D-Dimer Heparin Anti-Xa Level ABG pH 7.519 H POC ABG pCO2 POC ABG pO2 198.6 H ABG pO2 ABG HCO3 ABG O2 Saturation ABG Base Excess ABG Hemoglobin 10.3 L ABG Oxyhemoglobin 98.7 H ABG Sodium 133.6 L ABG Potassium 3.3 L ABG Chloride 93.0 L ABG Glucose 175 H Oxyhemoglobin Carboxyhemoglobin Sodium Potassium 3.4 L Chloride 92.5 L Carbon Dioxide 36 H BUN Creatinine 0.3 L Glucose 148 H POC Glucose 170 H Lactic Acid Calcium Magnesium Ferritin Total Bilirubin Direct Bilirubin AST ALT Alkaline Phosphatase Lactate Dehydrogenase C-Reactive Protein Total Protein Albumin Triglycerides Lipase Arterial Blood Glucose 175 H Arterial Blood Ionized Calcium Urine WBC (Auto) Coronavirus (PCR) SARS-CoV-2 IgG Ab Crossmatch 07/05/20 07/05/20 07/06/20 11:37 18:39 00:04 WBC RBC Hgb Hct MCV MCH MCHC RDW Lymph % (Auto) [place] % (Auto) Lymph # (Auto) [place] # (Auto) Baso # (Auto) Seg Neutrophils % Seg Neuts % (Manual) Lymphocytes % (Manual) Nucleated RBC % Seg Neutrophils # Seg Neutrophils # Man Lymphocytes # (Manual) Monocytes # (Manual) Eosinophils # (Manual) PT INR APTT D-Dimer Heparin Anti-Xa Level ABG pH POC ABG pCO2 POC ABG pO2 ABG pO2 ABG HCO3 ABG O2 Saturation ABG Base Excess ABG Hemoglobin ABG Oxyhemoglobin ABG Sodium ABG Potassium ABG Chloride ABG Glucose Oxyhemoglobin Carboxyhemoglobin Sodium Potassium Chloride Carbon Dioxide BUN Creatinine Glucose POC Glucose 195 H 200 H 222 H Lactic Acid Calcium Magnesium Ferritin Total Bilirubin Direct Bilirubin AST ALT Alkaline Phosphatase Lactate Dehydrogenase C-Reactive Protein Total Protein Albumin Triglycerides Lipase Arterial Blood Glucose Arterial Blood Ionized Calcium Urine WBC (Auto) Coronavirus (PCR) SARS-CoV-2 IgG Ab Crossmatch 07/06/20 07/06/20 07/06/20 05:25 06:52 06:52 WBC 15.8 H RBC 3.17 L Hgb 10.4 L Hct 31.5 L MCV 99 H MCH 33 H MCHC RDW 17.0 H Lymph % (Auto) [place] % (Auto) Lymph # (Auto) [place] # (Auto) Baso # (Auto) Seg Neutrophils % Seg Neuts % (Manual) Lymphocytes % (Manual) Nucleated RBC % Seg Neutrophils # Seg Neutrophils # Man Lymphocytes # (Manual) Monocytes # (Manual) Eosinophils # (Manual) PT INR APTT D-Dimer Heparin Anti-Xa Level ABG pH POC ABG pCO2 POC ABG pO2 ABG pO2 ABG HCO3 ABG O2 Saturation ABG Base Excess ABG Hemoglobin ABG Oxyhemoglobin ABG Sodium ABG Potassium ABG Chloride ABG Glucose Oxyhemoglobin Carboxyhemoglobin Sodium 135 L Potassium 3.4 L Chloride 91.9 L Carbon Dioxide 38 H BUN Creatinine 0.3 L Glucose 189 H POC Glucose 165 H Lactic Acid Calcium Magnesium Ferritin Total Bilirubin Direct Bilirubin AST ALT Alkaline Phosphatase Lactate Dehydrogenase C-Reactive Protein Total Protein Albumin Triglycerides Lipase Arterial Blood Glucose Arterial Blood Ionized Calcium Urine WBC (Auto) Coronavirus (PCR) SARS-CoV-2 IgG Ab Crossmatch 07/06/20 07/06/20 07/06/20 13:01 18:04 23:08 WBC RBC Hgb Hct MCV MCH MCHC RDW Lymph % (Auto) [place] % (Auto) Lymph # (Auto) [place] # (Auto) Baso # (Auto) Seg Neutrophils % Seg Neuts % (Manual) Lymphocytes % (Manual) Nucleated RBC % Seg Neutrophils # Seg Neutrophils # Man Lymphocytes # (Manual) Monocytes # (Manual) Eosinophils # (Manual) PT INR APTT D-Dimer Heparin Anti-Xa Level ABG pH POC ABG pCO2 POC ABG pO2 ABG pO2 ABG HCO3 ABG O2 Saturation ABG Base Excess ABG Hemoglobin ABG Oxyhemoglobin ABG Sodium ABG Potassium ABG Chloride ABG Glucose Oxyhemoglobin Carboxyhemoglobin Sodium Potassium Chloride Carbon Dioxide BUN Creatinine Glucose POC Glucose 195 H 169 H 173 H Lactic Acid Calcium Magnesium Ferritin Total Bilirubin Direct Bilirubin AST ALT Alkaline Phosphatase Lactate Dehydrogenase C-Reactive Protein Total Protein Albumin Triglycerides Lipase Arterial Blood Glucose Arterial Blood Ionized Calcium Urine WBC (Auto) Coronavirus (PCR) SARS-CoV-2 IgG Ab Crossmatch 07/07/20 07/07/20 07/07/20 05:35 05:35 05:39 WBC 17.6 H RBC 3.16 L Hgb 10.4 L Hct 31.5 L MCV 100 H MCH 33 H MCHC RDW 16.7 H Lymph % (Auto) 11.1 L [place] % (Auto) Lymph # (Auto) [place] # (Auto) 1.0 H Baso # (Auto) Seg Neutrophils % 83.0 H Seg Neuts % (Manual) Lymphocytes % (Manual) Nucleated RBC % Seg Neutrophils # 14.6 H Seg Neutrophils # Man Lymphocytes # (Manual) Monocytes # (Manual) Eosinophils # (Manual) PT INR APTT D-Dimer Heparin Anti-Xa Level ABG pH POC ABG pCO2 POC ABG pO2 ABG pO2 ABG HCO3 ABG O2 Saturation ABG Base Excess ABG Hemoglobin ABG Oxyhemoglobin ABG Sodium ABG Potassium ABG Chloride ABG Glucose Oxyhemoglobin Carboxyhemoglobin Sodium 135 L Potassium 3.4 L Chloride 94.3 L Carbon Dioxide 32 H BUN Creatinine 0.2 L Glucose 240 H POC Glucose 191 H Lactic Acid Calcium Magnesium Ferritin Total Bilirubin Direct Bilirubin AST ALT Alkaline Phosphatase Lactate Dehydrogenase C-Reactive Protein Total Protein Albumin Triglycerides Lipase Arterial Blood Glucose Arterial Blood Ionized Calcium Urine WBC (Auto) Coronavirus (PCR) SARS-CoV-2 IgG Ab Crossmatch 07/07/20 07/07/20 07/07/20 12:08 16:39 23:41 WBC RBC Hgb Hct MCV MCH MCHC RDW Lymph % (Auto) [place] % (Auto) Lymph # (Auto) [place] # (Auto) Baso # (Auto) Seg Neutrophils % Seg Neuts % (Manual) Lymphocytes % (Manual) Nucleated RBC % Seg Neutrophils # Seg Neutrophils # Man Lymphocytes # (Manual) Monocytes # (Manual) Eosinophils # (Manual) PT INR APTT D-Dimer Heparin Anti-Xa Level ABG pH POC ABG pCO2 POC ABG pO2 ABG pO2 ABG HCO3 ABG O2 Saturation ABG Base Excess ABG Hemoglobin ABG Oxyhemoglobin ABG Sodium ABG Potassium ABG Chloride ABG Glucose Oxyhemoglobin Carboxyhemoglobin Sodium Potassium Chloride Carbon Dioxide BUN Creatinine Glucose POC Glucose 248 H 209 H 231 H Lactic Acid Calcium Magnesium Ferritin Total Bilirubin Direct Bilirubin AST ALT Alkaline Phosphatase Lactate Dehydrogenase C-Reactive Protein Total Protein Albumin Triglycerides Lipase Arterial Blood Glucose Arterial Blood Ionized Calcium Urine WBC (Auto) Coronavirus (PCR) SARS-CoV-2 IgG Ab Crossmatch 07/08/20 07/08/20 07/08/20 04:58 04:58 05:38 WBC 21.0 H RBC 2.86 L Hgb 9.2 L Hct 28.6 L MCV 100 H MCH MCHC RDW 16.7 H Lymph % (Auto) [place] % (Auto) Lymph # (Auto) [place] # (Auto) Baso # (Auto) Seg Neutrophils % Seg Neuts % (Manual) 93.0 H Lymphocytes % (Manual) 3.0 L Nucleated RBC % Seg Neutrophils # Seg Neutrophils # Man 19.5 H Lymphocytes # (Manual) 0.6 L Monocytes # (Manual) Eosinophils # (Manual) PT INR APTT D-Dimer Heparin Anti-Xa Level ABG pH POC ABG pCO2 POC ABG pO2 ABG pO2 ABG HCO3 ABG O2 Saturation ABG Base Excess ABG Hemoglobin ABG Oxyhemoglobin ABG Sodium ABG Potassium ABG Chloride ABG Glucose Oxyhemoglobin Carboxyhemoglobin Sodium Potassium 3.0 L Chloride Carbon Dioxide BUN Creatinine 0.2 L Glucose 201 H POC Glucose 161 H Lactic Acid Calcium 7.9 L D Magnesium Ferritin Total Bilirubin Direct Bilirubin AST ALT Alkaline Phosphatase Lactate Dehydrogenase C-Reactive Protein Total Protein Albumin Triglycerides Lipase Arterial Blood Glucose Arterial Blood Ionized Calcium Urine WBC (Auto) Coronavirus (PCR) SARS-CoV-2 IgG Ab Crossmatch 07/08/20 07/08/20 07/08/20 12:19 16:26 Unknown WBC RBC Hgb Hct MCV MCH MCHC RDW Lymph % (Auto) [place] % (Auto) Lymph # (Auto) [place] # (Auto) Baso # (Auto) Seg Neutrophils % Seg Neuts % (Manual) Lymphocytes % (Manual) Nucleated RBC % Seg Neutrophils # Seg Neutrophils # Man Lymphocytes # (Manual) Monocytes # (Manual) Eosinophils # (Manual) PT INR APTT D-Dimer Heparin Anti-Xa Level ABG pH POC ABG pCO2 POC ABG pO2 ABG pO2 75.3 L ABG HCO3 34.3 H ABG O2 Saturation ABG Base Excess 8.7 H ABG Hemoglobin 10.2 L ABG Oxyhemoglobin ABG Sodium ABG Potassium ABG Chloride ABG Glucose Oxyhemoglobin 93.7 L Carboxyhemoglobin Sodium Potassium Chloride Carbon Dioxide BUN Creatinine Glucose POC Glucose 152 H 173 H Lactic Acid Calcium Magnesium Ferritin Total Bilirubin Direct Bilirubin AST ALT Alkaline Phosphatase Lactate Dehydrogenase C-Reactive Protein Total Protein Albumin Triglycerides Lipase Arterial Blood Glucose Arterial Blood Ionized Calcium Urine WBC (Auto) Coronavirus (PCR) SARS-CoV-2 IgG Ab Crossmatch 07/09/20 07/09/20 07/09/20 00:01 06:00 11:55 WBC RBC Hgb Hct MCV MCH MCHC RDW Lymph % (Auto) [place] % (Auto) Lymph # (Auto) [place] # (Auto) Baso # (Auto) Seg Neutrophils % Seg Neuts % (Manual) Lymphocytes % (Manual) Nucleated RBC % Seg Neutrophils # Seg Neutrophils # Man Lymphocytes # (Manual) Monocytes # (Manual) Eosinophils # (Manual) PT INR APTT D-Dimer Heparin Anti-Xa Level ABG pH POC ABG pCO2 POC ABG pO2 ABG pO2 ABG HCO3 ABG O2 Saturation ABG Base Excess ABG Hemoglobin ABG Oxyhemoglobin ABG Sodium ABG Potassium ABG Chloride ABG Glucose Oxyhemoglobin Carboxyhemoglobin Sodium Potassium Chloride Carbon Dioxide BUN Creatinine Glucose POC Glucose 207 H 141 H 228 H Lactic Acid Calcium Magnesium Ferritin Total Bilirubin Direct Bilirubin AST ALT Alkaline Phosphatase Lactate Dehydrogenase C-Reactive Protein Total Protein Albumin Triglycerides Lipase Arterial Blood Glucose Arterial Blood Ionized Calcium Urine WBC (Auto) Coronavirus (PCR) SARS-CoV-2 IgG Ab Crossmatch 07/09/20 07/09/20 07/09/20 16:47 23:53 Unknown WBC RBC Hgb Hct MCV MCH MCHC RDW Lymph % (Auto) [place] % (Auto) Lymph # (Auto) [place] # (Auto) Baso # (Auto) Seg Neutrophils % Seg Neuts % (Manual) Lymphocytes % (Manual) Nucleated RBC % Seg Neutrophils # Seg Neutrophils # Man Lymphocytes # (Manual) Monocytes # (Manual) Eosinophils # (Manual) PT INR APTT D-Dimer Heparin Anti-Xa Level ABG pH POC ABG pCO2 POC ABG pO2 ABG pO2 ABG HCO3 ABG O2 Saturation ABG Base Excess ABG Hemoglobin ABG Oxyhemoglobin ABG Sodium ABG Potassium ABG Chloride ABG Glucose Oxyhemoglobin Carboxyhemoglobin Sodium 132 L Potassium Chloride 92.7 L Carbon Dioxide 35 H BUN Creatinine 0.2 L Glucose 234 H POC Glucose 136 H 219 H Lactic Acid Calcium Magnesium Ferritin Total Bilirubin Direct Bilirubin AST ALT Alkaline Phosphatase Lactate Dehydrogenase C-Reactive Protein Total Protein Albumin Triglycerides Lipase Arterial Blood Glucose Arterial Blood Ionized Calcium Urine WBC (Auto) Coronavirus (PCR) SARS-CoV-2 IgG Ab Crossmatch 07/10/20 07/10/20 07/10/20 05:20 12:05 18:38 WBC RBC Hgb Hct MCV MCH MCHC RDW Lymph % (Auto) [place] % (Auto) Lymph # (Auto) [place] # (Auto) Baso # (Auto) Seg Neutrophils % Seg Neuts % (Manual) Lymphocytes % (Manual) Nucleated RBC % Seg Neutrophils # Seg Neutrophils # Man Lymphocytes # (Manual) Monocytes # (Manual) Eosinophils # (Manual) PT INR APTT D-Dimer Heparin Anti-Xa Level ABG pH POC ABG pCO2 POC ABG pO2 ABG pO2 ABG HCO3 ABG O2 Saturation ABG Base Excess ABG Hemoglobin ABG Oxyhemoglobin ABG Sodium ABG Potassium ABG Chloride ABG Glucose Oxyhemoglobin Carboxyhemoglobin Sodium Potassium Chloride Carbon Dioxide BUN Creatinine Glucose POC Glucose 221 H 174 H 152 H Lactic Acid Calcium Magnesium Ferritin Total Bilirubin Direct Bilirubin AST ALT Alkaline Phosphatase Lactate Dehydrogenase C-Reactive Protein Total Protein Albumin Triglycerides Lipase Arterial Blood Glucose Arterial Blood Ionized Calcium Urine WBC (Auto) Coronavirus (PCR) SARS-CoV-2 IgG Ab Crossmatch 07/11/20 07/11/20 07/11/20 00:16 05:42 08:13 WBC 11.9 H RBC 3.13 L Hgb 10.2 L Hct 31.2 L MCV 100 H MCH 33 H MCHC RDW 16.4 H Lymph % (Auto) [place] % (Auto) 9.3 H Lymph # (Auto) [place] # (Auto) 1.1 H Baso # (Auto) Seg Neutrophils % 72.7 H Seg Neuts % (Manual) Lymphocytes % (Manual) Nucleated RBC % Seg Neutrophils # 8.7 H Seg Neutrophils # Man Lymphocytes # (Manual) Monocytes # (Manual) Eosinophils # (Manual) PT INR APTT D-Dimer Heparin Anti-Xa Level ABG pH POC ABG pCO2 POC ABG pO2 ABG pO2 ABG HCO3 ABG O2 Saturation ABG Base Excess ABG Hemoglobin ABG Oxyhemoglobin ABG Sodium ABG Potassium ABG Chloride ABG Glucose Oxyhemoglobin Carboxyhemoglobin Sodium Potassium Chloride Carbon Dioxide BUN Creatinine Glucose POC Glucose 170 H 186 H Lactic Acid Calcium Magnesium Ferritin Total Bilirubin Direct Bilirubin AST ALT Alkaline Phosphatase Lactate Dehydrogenase C-Reactive Protein Total Protein Albumin Triglycerides Lipase Arterial Blood Glucose Arterial Blood Ionized Calcium Urine WBC (Auto) Coronavirus (PCR) SARS-CoV-2 IgG Ab Crossmatch 07/11/20 07/11/20 07/11/20 08:13 11:35 18:07 WBC RBC Hgb Hct MCV MCH MCHC RDW Lymph % (Auto) [place] % (Auto) Lymph # (Auto) [place] # (Auto) Baso # (Auto) Seg Neutrophils % Seg Neuts % (Manual) Lymphocytes % (Manual) Nucleated RBC % Seg Neutrophils # Seg Neutrophils # Man Lymphocytes # (Manual) Monocytes # (Manual) Eosinophils # (Manual) PT INR APTT D-Dimer Heparin Anti-Xa Level ABG pH POC ABG pCO2 POC ABG pO2 ABG pO2 ABG HCO3 ABG O2 Saturation ABG Base Excess ABG Hemoglobin ABG Oxyhemoglobin ABG Sodium ABG Potassium ABG Chloride ABG Glucose Oxyhemoglobin Carboxyhemoglobin Sodium 135 L Potassium Chloride 92.8 L Carbon Dioxide 38 H BUN Creatinine 0.2 L Glucose 132 H POC Glucose 129 H 156 H Lactic Acid Calcium Magnesium Ferritin Total Bilirubin Direct Bilirubin AST ALT Alkaline Phosphatase Lactate Dehydrogenase C-Reactive Protein Total Protein Albumin Triglycerides Lipase Arterial Blood Glucose Arterial Blood Ionized Calcium Urine WBC (Auto) Coronavirus (PCR) SARS-CoV-2 IgG Ab Crossmatch 07/11/20 07/11/20 07/12/20 18:36 23:18 05:28 WBC RBC Hgb Hct MCV MCH MCHC RDW Lymph % (Auto) [place] % (Auto) Lymph # (Auto) [place] # (Auto) Baso # (Auto) Seg Neutrophils % Seg Neuts % (Manual) Lymphocytes % (Manual) Nucleated RBC % Seg Neutrophils # Seg Neutrophils # Man Lymphocytes # (Manual) Monocytes # (Manual) Eosinophils # (Manual) PT INR APTT D-Dimer Heparin Anti-Xa Level ABG pH POC ABG pCO2 POC ABG pO2 70.9 L ABG pO2 ABG HCO3 ABG O2 Saturation ABG Base Excess ABG Hemoglobin 10.8 L ABG Oxyhemoglobin 92.5 L ABG Sodium 131.8 L ABG Potassium 3.2 L ABG Chloride 91.0 L ABG Glucose 181 H Oxyhemoglobin Carboxyhemoglobin Sodium Potassium Chloride Carbon Dioxide BUN Creatinine Glucose POC Glucose 189 H 190 H Lactic Acid Calcium Magnesium Ferritin Total Bilirubin Direct Bilirubin AST ALT Alkaline Phosphatase Lactate Dehydrogenase C-Reactive Protein Total Protein Albumin Triglycerides Lipase Arterial Blood Glucose 181 H Arterial Blood Ionized Calcium Urine WBC (Auto) Coronavirus (PCR) SARS-CoV-2 IgG Ab Crossmatch 07/12/20 07/12/20 07/12/20 11:33 17:45 23:59 WBC RBC Hgb Hct MCV MCH MCHC RDW Lymph % (Auto) [place] % (Auto) Lymph # (Auto) [place] # (Auto) Baso # (Auto) Seg Neutrophils % Seg Neuts % (Manual) Lymphocytes % (Manual) Nucleated RBC % Seg Neutrophils # Seg Neutrophils # Man Lymphocytes # (Manual) Monocytes # (Manual) Eosinophils # (Manual) PT INR APTT D-Dimer Heparin Anti-Xa Level ABG pH POC ABG pCO2 POC ABG pO2 ABG pO2 ABG HCO3 ABG O2 Saturation ABG Base Excess ABG Hemoglobin ABG Oxyhemoglobin ABG Sodium ABG Potassium ABG Chloride ABG Glucose Oxyhemoglobin Carboxyhemoglobin Sodium Potassium Chloride Carbon Dioxide BUN Creatinine Glucose POC Glucose 151 H 211 H 169 H Lactic Acid Calcium Magnesium Ferritin Total Bilirubin Direct Bilirubin AST ALT Alkaline Phosphatase Lactate Dehydrogenase C-Reactive Protein Total Protein Albumin Triglycerides Lipase Arterial Blood Glucose Arterial Blood Ionized Calcium Urine WBC (Auto) Coronavirus (PCR) SARS-CoV-2 IgG Ab Crossmatch 07/13/20 07/13/20 07/13/20 05:44 08:31 08:31 WBC 21.3 H RBC 2.92 L Hgb 9.7 L Hct 28.7 L MCV 98 H MCH 33 H MCHC RDW 16.8 H Lymph % (Auto) [place] % (Auto) Lymph # (Auto) [place] # (Auto) Baso # (Auto) Seg Neutrophils % Seg Neuts % (Manual) 96.0 H Lymphocytes % (Manual) 2.0 L Nucleated RBC % Seg Neutrophils # Seg Neutrophils # Man 20.4 H Lymphocytes # (Manual) 0.4 L Monocytes # (Manual) Eosinophils # (Manual) PT INR APTT D-Dimer Heparin Anti-Xa Level ABG pH POC ABG pCO2 POC ABG pO2 ABG pO2 ABG HCO3 ABG O2 Saturation ABG Base Excess ABG Hemoglobin ABG Oxyhemoglobin ABG Sodium ABG Potassium ABG Chloride ABG Glucose Oxyhemoglobin Carboxyhemoglobin Sodium Potassium 2.9 L* D Chloride 94.4 L Carbon Dioxide 37 H BUN Creatinine 0.2 L Glucose 166 H POC Glucose 122 H Lactic Acid Calcium Magnesium Ferritin Total Bilirubin Direct Bilirubin AST ALT Alkaline Phosphatase Lactate Dehydrogenase C-Reactive Protein Total Protein Albumin Triglycerides Lipase Arterial Blood Glucose Arterial Blood Ionized Calcium Urine WBC (Auto) Coronavirus (PCR) SARS-CoV-2 IgG Ab Crossmatch 07/13/20 07/13/20 07/13/20 11:54 13:52 17:40 WBC RBC Hgb Hct MCV MCH MCHC RDW Lymph % (Auto) [place] % (Auto) Lymph # (Auto) [place] # (Auto) Baso # (Auto) Seg Neutrophils % Seg Neuts % (Manual) Lymphocytes % (Manual) Nucleated RBC % Seg Neutrophils # Seg Neutrophils # Man Lymphocytes # (Manual) Monocytes # (Manual) Eosinophils # (Manual) PT INR APTT D-Dimer Heparin Anti-Xa Level ABG pH 7.477 H POC ABG pCO2 54.4 H POC ABG pO2 126.8 H ABG pO2 ABG HCO3 ABG O2 Saturation ABG Base Excess ABG Hemoglobin 11.5 L ABG Oxyhemoglobin ABG Sodium ABG Potassium 3.2 L ABG Chloride 92.0 L ABG Glucose 169 H Oxyhemoglobin Carboxyhemoglobin Sodium Potassium Chloride Carbon Dioxide BUN Creatinine Glucose POC Glucose 132 H 128 H Lactic Acid Calcium Magnesium Ferritin Total Bilirubin Direct Bilirubin AST ALT Alkaline Phosphatase Lactate Dehydrogenase C-Reactive Protein Total Protein Albumin Triglycerides Lipase Arterial Blood Glucose 169 H Arterial Blood Ionized Calcium Urine WBC (Auto) Coronavirus (PCR) SARS-CoV-2 IgG Ab Crossmatch 07/14/20 07/14/20 07/15/20 07:49 17:09 05:27 WBC RBC Hgb Hct MCV MCH MCHC RDW Lymph % (Auto) [place] % (Auto) Lymph # (Auto) [place] # (Auto) Baso # (Auto) Seg Neutrophils % Seg Neuts % (Manual) Lymphocytes % (Manual) Nucleated RBC % Seg Neutrophils # Seg Neutrophils # Man Lymphocytes # (Manual) Monocytes # (Manual) Eosinophils # (Manual) PT INR APTT D-Dimer Heparin Anti-Xa Level ABG pH POC ABG pCO2 POC ABG pO2 ABG pO2 ABG HCO3 ABG O2 Saturation ABG Base Excess ABG Hemoglobin ABG Oxyhemoglobin ABG Sodium ABG Potassium ABG Chloride ABG Glucose Oxyhemoglobin Carboxyhemoglobin Sodium Potassium 2.7 L* Chloride 94.0 L Carbon Dioxide 37 H BUN Creatinine 0.3 L Glucose 110 H POC Glucose 152 H 61 L Lactic Acid Calcium Magnesium Ferritin Total Bilirubin Direct Bilirubin AST ALT Alkaline Phosphatase Lactate Dehydrogenase C-Reactive Protein Total Protein Albumin Triglycerides Lipase Arterial Blood Glucose Arterial Blood Ionized Calcium Urine WBC (Auto) Coronavirus (PCR) SARS-CoV-2 IgG Ab Crossmatch 07/15/20 07/15/20 07/15/20 05:31 11:49 17:18 WBC RBC Hgb Hct MCV MCH MCHC RDW Lymph % (Auto) [place] % (Auto) Lymph # (Auto) [place] # (Auto) Baso # (Auto) Seg Neutrophils % Seg Neuts % (Manual) Lymphocytes % (Manual) Nucleated RBC % Seg Neutrophils # Seg Neutrophils # Man Lymphocytes # (Manual) Monocytes # (Manual) Eosinophils # (Manual) PT INR APTT D-Dimer Heparin Anti-Xa Level ABG pH POC ABG pCO2 POC ABG pO2 ABG pO2 ABG HCO3 ABG O2 Saturation ABG Base Excess ABG Hemoglobin ABG Oxyhemoglobin ABG Sodium ABG Potassium ABG Chloride ABG Glucose Oxyhemoglobin Carboxyhemoglobin Sodium Potassium 3.2 L Chloride 91.2 L Carbon Dioxide 33 H BUN Creatinine 0.3 L Glucose 139 H POC Glucose 148 H 196 H Lactic Acid Calcium Magnesium Ferritin Total Bilirubin Direct Bilirubin AST ALT Alkaline Phosphatase Lactate Dehydrogenase C-Reactive Protein Total Protein Albumin Triglycerides Lipase Arterial Blood Glucose Arterial Blood Ionized Calcium Urine WBC (Auto) Coronavirus (PCR) SARS-CoV-2 IgG Ab Crossmatch 07/15/20 07/16/20 07/16/20 23:08 05:18 05:19 WBC 11.3 H RBC 3.10 L Hgb 10.0 L Hct 30.3 L MCV 98 H MCH MCHC RDW 16.3 H Lymph % (Auto) [place] % (Auto) Lymph # (Auto) [place] # (Auto) Baso # (Auto) Seg Neutrophils % Seg Neuts % (Manual) Lymphocytes % (Manual) Nucleated RBC % Seg Neutrophils # Seg Neutrophils # Man Lymphocytes # (Manual) Monocytes # (Manual) Eosinophils # (Manual) PT INR APTT D-Dimer Heparin Anti-Xa Level ABG pH POC ABG pCO2 POC ABG pO2 ABG pO2 ABG HCO3 ABG O2 Saturation ABG Base Excess ABG Hemoglobin ABG Oxyhemoglobin ABG Sodium ABG Potassium ABG Chloride ABG Glucose Oxyhemoglobin Carboxyhemoglobin Sodium Potassium Chloride Carbon Dioxide BUN Creatinine Glucose POC Glucose 131 H 160 H Lactic Acid Calcium Magnesium Ferritin Total Bilirubin Direct Bilirubin AST ALT Alkaline Phosphatase Lactate Dehydrogenase C-Reactive Protein Total Protein Albumin Triglycerides Lipase Arterial Blood Glucose Arterial Blood Ionized Calcium Urine WBC (Auto) Coronavirus (PCR) SARS-CoV-2 IgG Ab Crossmatch 07/16/20 07/16/20 07/16/20 05:19 11:45 17:17 WBC RBC Hgb Hct MCV MCH MCHC RDW Lymph % (Auto) [place] % (Auto) Lymph # (Auto) [place] # (Auto) Baso # (Auto) Seg Neutrophils % Seg Neuts % (Manual) Lymphocytes % (Manual) Nucleated RBC % Seg Neutrophils # Seg Neutrophils # Man Lymphocytes # (Manual) Monocytes # (Manual) Eosinophils # (Manual) PT INR APTT D-Dimer Heparin Anti-Xa Level ABG pH POC ABG pCO2 POC ABG pO2 ABG pO2 ABG HCO3 ABG O2 Saturation ABG Base Excess ABG Hemoglobin ABG Oxyhemoglobin ABG Sodium ABG Potassium ABG Chloride ABG Glucose Oxyhemoglobin Carboxyhemoglobin Sodium 132 L Potassium 3.4 L Chloride 89.9 L Carbon Dioxide 39 H BUN Creatinine 0.3 L Glucose 174 H POC Glucose 169 H 143 H Lactic Acid Calcium Magnesium Ferritin Total Bilirubin Direct Bilirubin AST ALT Alkaline Phosphatase Lactate Dehydrogenase C-Reactive Protein Total Protein Albumin Triglycerides Lipase Arterial Blood Glucose Arterial Blood Ionized Calcium Urine WBC (Auto) Coronavirus (PCR) SARS-CoV-2 IgG Ab Crossmatch 07/16/20 07/17/20 07/17/20 23:54 05:32 11:26 WBC RBC Hgb Hct MCV MCH MCHC RDW Lymph % (Auto) [place] % (Auto) Lymph # (Auto) [place] # (Auto) Baso # (Auto) Seg Neutrophils % Seg Neuts % (Manual) Lymphocytes % (Manual) Nucleated RBC % Seg Neutrophils # Seg Neutrophils # Man Lymphocytes # (Manual) Monocytes # (Manual) Eosinophils # (Manual) PT INR APTT D-Dimer Heparin Anti-Xa Level ABG pH POC ABG pCO2 POC ABG pO2 ABG pO2 ABG HCO3 ABG O2 Saturation ABG Base Excess ABG Hemoglobin ABG Oxyhemoglobin ABG Sodium ABG Potassium ABG Chloride ABG Glucose Oxyhemoglobin Carboxyhemoglobin Sodium Potassium Chloride Carbon Dioxide BUN Creatinine Glucose POC Glucose 147 H 149 H 211 H Lactic Acid Calcium Magnesium Ferritin Total Bilirubin Direct Bilirubin AST ALT Alkaline Phosphatase Lactate Dehydrogenase C-Reactive Protein Total Protein Albumin Triglycerides Lipase Arterial Blood Glucose Arterial Blood Ionized Calcium Urine WBC (Auto) Coronavirus (PCR) SARS-CoV-2 IgG Ab Crossmatch 07/17/20 07/17/20 07/18/20 18:16 23:12 06:15 WBC RBC Hgb Hct MCV MCH MCHC RDW Lymph % (Auto) [place] % (Auto) Lymph # (Auto) [place] # (Auto) Baso # (Auto) Seg Neutrophils % Seg Neuts % (Manual) Lymphocytes % (Manual) Nucleated RBC % Seg Neutrophils # Seg Neutrophils # Man Lymphocytes # (Manual) Monocytes # (Manual) Eosinophils # (Manual) PT INR APTT D-Dimer Heparin Anti-Xa Level ABG pH POC ABG pCO2 POC ABG pO2 ABG pO2 ABG HCO3 ABG O2 Saturation ABG Base Excess ABG Hemoglobin ABG Oxyhemoglobin ABG Sodium ABG Potassium ABG Chloride ABG Glucose Oxyhemoglobin Carboxyhemoglobin Sodium Potassium Chloride Carbon Dioxide BUN Creatinine Glucose POC Glucose 161 H 136 H 108 H Lactic Acid Calcium Magnesium Ferritin Total Bilirubin Direct Bilirubin AST ALT Alkaline Phosphatase Lactate Dehydrogenase C-Reactive Protein Total Protein Albumin Triglycerides Lipase Arterial Blood Glucose Arterial Blood Ionized Calcium Urine WBC (Auto) Coronavirus (PCR) SARS-CoV-2 IgG Ab Crossmatch 07/18/20 07/18/20 07/18/20 08:47 08:47 11:50 WBC 17.7 H RBC 3.29 L Hgb 10.5 L Hct 31.8 L MCV 97 H MCH MCHC RDW 16.9 H Lymph % (Auto) [place] % (Auto) 8.6 H Lymph # (Auto) [place] # (Auto) 1.5 H Baso # (Auto) Seg Neutrophils % 74.6 H Seg Neuts % (Manual) Lymphocytes % (Manual) Nucleated RBC % Seg Neutrophils # 13.2 H Seg Neutrophils # Man Lymphocytes # (Manual) Monocytes # (Manual) Eosinophils # (Manual) PT INR APTT D-Dimer Heparin Anti-Xa Level ABG pH POC ABG pCO2 POC ABG pO2 ABG pO2 ABG HCO3 ABG O2 Saturation ABG Base Excess ABG Hemoglobin ABG Oxyhemoglobin ABG Sodium ABG Potassium ABG Chloride ABG Glucose Oxyhemoglobin Carboxyhemoglobin Sodium Potassium 2.8 L* Chloride 92.6 L Carbon Dioxide 40 H BUN Creatinine 0.3 L Glucose 177 H POC Glucose 178 H Lactic Acid Calcium Magnesium Ferritin Total Bilirubin Direct Bilirubin AST ALT Alkaline Phosphatase Lactate Dehydrogenase C-Reactive Protein Total Protein Albumin Triglycerides Lipase Arterial Blood Glucose Arterial Blood Ionized Calcium Urine WBC (Auto) Coronavirus (PCR) SARS-CoV-2 IgG Ab Crossmatch 07/18/20 07/18/20 07/19/20 17:18 23:33 05:22 WBC RBC Hgb Hct MCV MCH MCHC RDW Lymph % (Auto) [place] % (Auto) Lymph # (Auto) [place] # (Auto) Baso # (Auto) Seg Neutrophils % Seg Neuts % (Manual) Lymphocytes % (Manual) Nucleated RBC % Seg Neutrophils # Seg Neutrophils # Man Lymphocytes # (Manual) Monocytes # (Manual) Eosinophils # (Manual) PT INR APTT D-Dimer Heparin Anti-Xa Level ABG pH POC ABG pCO2 POC ABG pO2 ABG pO2 ABG HCO3 ABG O2 Saturation ABG Base Excess ABG Hemoglobin ABG Oxyhemoglobin ABG Sodium ABG Potassium ABG Chloride ABG Glucose Oxyhemoglobin Carboxyhemoglobin Sodium Potassium Chloride Carbon Dioxide BUN Creatinine Glucose POC Glucose 171 H 162 H 166 H Lactic Acid Calcium Magnesium Ferritin Total Bilirubin Direct Bilirubin AST ALT Alkaline Phosphatase Lactate Dehydrogenase C-Reactive Protein Total Protein Albumin Triglycerides Lipase Arterial Blood Glucose Arterial Blood Ionized Calcium Urine WBC (Auto) Coronavirus (PCR) SARS-CoV-2 IgG Ab Crossmatch 07/19/20 07/19/20 07/19/20 12:00 16:27 23:41 WBC RBC Hgb Hct MCV MCH MCHC RDW Lymph % (Auto) [place] % (Auto) Lymph # (Auto) [place] # (Auto) Baso # (Auto) Seg Neutrophils % Seg Neuts % (Manual) Lymphocytes % (Manual) Nucleated RBC % Seg Neutrophils # Seg Neutrophils # Man Lymphocytes # (Manual) Monocytes # (Manual) Eosinophils # (Manual) PT INR APTT D-Dimer Heparin Anti-Xa Level ABG pH POC ABG pCO2 POC ABG pO2 ABG pO2 ABG HCO3 ABG O2 Saturation ABG Base Excess ABG Hemoglobin ABG Oxyhemoglobin ABG Sodium ABG Potassium ABG Chloride ABG Glucose Oxyhemoglobin Carboxyhemoglobin Sodium Potassium Chloride Carbon Dioxide BUN Creatinine Glucose POC Glucose 201 H 205 H 106 H Lactic Acid Calcium Magnesium Ferritin Total Bilirubin Direct Bilirubin AST ALT Alkaline Phosphatase Lactate Dehydrogenase C-Reactive Protein Total Protein Albumin Triglycerides Lipase Arterial Blood Glucose Arterial Blood Ionized Calcium Urine WBC (Auto) Coronavirus (PCR) SARS-CoV-2 IgG Ab Crossmatch 07/20/20 07/20/20 07/20/20 05:28 11:18 17:30 WBC RBC Hgb Hct MCV MCH MCHC RDW Lymph % (Auto) [place] % (Auto) Lymph # (Auto) [place] # (Auto) Baso # (Auto) Seg Neutrophils % Seg Neuts % (Manual) Lymphocytes % (Manual) Nucleated RBC % Seg Neutrophils # Seg Neutrophils # Man Lymphocytes # (Manual) Monocytes # (Manual) Eosinophils # (Manual) PT INR APTT D-Dimer Heparin Anti-Xa Level ABG pH POC ABG pCO2 POC ABG pO2 ABG pO2 ABG HCO3 ABG O2 Saturation ABG Base Excess ABG Hemoglobin ABG Oxyhemoglobin ABG Sodium ABG Potassium ABG Chloride ABG Glucose Oxyhemoglobin Carboxyhemoglobin Sodium Potassium Chloride Carbon Dioxide BUN Creatinine Glucose POC Glucose 130 H 195 H 141 H Lactic Acid Calcium Magnesium Ferritin Total Bilirubin Direct Bilirubin AST ALT Alkaline Phosphatase Lactate Dehydrogenase C-Reactive Protein Total Protein Albumin Triglycerides Lipase Arterial Blood Glucose Arterial Blood Ionized Calcium Urine WBC (Auto) Coronavirus (PCR) SARS-CoV-2 IgG Ab Crossmatch 07/20/20 07/21/20 07/21/20 23:26 05:03 17:03 WBC RBC Hgb Hct MCV MCH MCHC RDW Lymph % (Auto) [place] % (Auto) Lymph # (Auto) [place] # (Auto) Baso # (Auto) Seg Neutrophils % Seg Neuts % (Manual) Lymphocytes % (Manual) Nucleated RBC % Seg Neutrophils # Seg Neutrophils # Man Lymphocytes # (Manual) Monocytes # (Manual) Eosinophils # (Manual) PT INR APTT D-Dimer Heparin Anti-Xa Level ABG pH POC ABG pCO2 POC ABG pO2 ABG pO2 ABG HCO3 ABG O2 Saturation ABG Base Excess ABG Hemoglobin ABG Oxyhemoglobin ABG Sodium ABG Potassium ABG Chloride ABG Glucose Oxyhemoglobin Carboxyhemoglobin Sodium Potassium Chloride Carbon Dioxide BUN Creatinine Glucose POC Glucose 116 H 142 H 181 H Lactic Acid Calcium Magnesium Ferritin Total Bilirubin Direct Bilirubin AST ALT Alkaline Phosphatase Lactate Dehydrogenase C-Reactive Protein Total Protein Albumin Triglycerides Lipase Arterial Blood Glucose Arterial Blood Ionized Calcium Urine WBC (Auto) Coronavirus (PCR) SARS-CoV-2 IgG Ab Crossmatch 07/21/20 07/22/20 07/22/20 23:51 06:09 11:40 WBC RBC Hgb Hct MCV MCH MCHC RDW Lymph % (Auto) [place] % (Auto) Lymph # (Auto) [place] # (Auto) Baso # (Auto) Seg Neutrophils % Seg Neuts % (Manual) Lymphocytes % (Manual) Nucleated RBC % Seg Neutrophils # Seg Neutrophils # Man Lymphocytes # (Manual) Monocytes # (Manual) Eosinophils # (Manual) PT INR APTT D-Dimer Heparin Anti-Xa Level ABG pH POC ABG pCO2 POC ABG pO2 ABG pO2 ABG HCO3 ABG O2 Saturation ABG Base Excess ABG Hemoglobin ABG Oxyhemoglobin ABG Sodium ABG Potassium ABG Chloride ABG Glucose Oxyhemoglobin Carboxyhemoglobin Sodium Potassium Chloride Carbon Dioxide BUN Creatinine Glucose POC Glucose 127 H 136 H 160 H Lactic Acid Calcium Magnesium Ferritin Total Bilirubin Direct Bilirubin AST ALT Alkaline Phosphatase Lactate Dehydrogenase C-Reactive Protein Total Protein Albumin Triglycerides Lipase Arterial Blood Glucose Arterial Blood Ionized Calcium Urine WBC (Auto) Coronavirus (PCR) SARS-CoV-2 IgG Ab Crossmatch 07/22/20 07/22/20 07/23/20 18:14 23:25 05:58 WBC 12.2 H RBC 3.44 L Hgb 10.9 L Hct 33.9 L MCV 99 H MCH MCHC RDW 16.9 H Lymph % (Auto) [place] % (Auto) 10.0 H Lymph # (Auto) [place] # (Auto) 1.2 H Baso # (Auto) Seg Neutrophils % Seg Neuts % (Manual) Lymphocytes % (Manual) Nucleated RBC % Seg Neutrophils # 8.3 H Seg Neutrophils # Man Lymphocytes # (Manual) Monocytes # (Manual) Eosinophils # (Manual) PT INR APTT D-Dimer Heparin Anti-Xa Level ABG pH POC ABG pCO2 POC ABG pO2 ABG pO2 ABG HCO3 ABG O2 Saturation ABG Base Excess ABG Hemoglobin ABG Oxyhemoglobin ABG Sodium ABG Potassium ABG Chloride ABG Glucose Oxyhemoglobin Carboxyhemoglobin Sodium Potassium Chloride Carbon Dioxide BUN Creatinine Glucose POC Glucose 189 H 164 H Lactic Acid Calcium Magnesium Ferritin Total Bilirubin Direct Bilirubin AST ALT Alkaline Phosphatase Lactate Dehydrogenase C-Reactive Protein Total Protein Albumin Triglycerides Lipase Arterial Blood Glucose Arterial Blood Ionized Calcium Urine WBC (Auto) Coronavirus (PCR) SARS-CoV-2 IgG Ab Crossmatch 07/23/20 07/23/20 07/23/20 05:58 06:02 12:14 WBC RBC Hgb Hct MCV MCH MCHC RDW Lymph % (Auto) [place] % (Auto) Lymph # (Auto) [place] # (Auto) Baso # (Auto) Seg Neutrophils % Seg Neuts % (Manual) Lymphocytes % (Manual) Nucleated RBC % Seg Neutrophils # Seg Neutrophils # Man Lymphocytes # (Manual) Monocytes # (Manual) Eosinophils # (Manual) PT INR APTT D-Dimer Heparin Anti-Xa Level ABG pH POC ABG pCO2 POC ABG pO2 ABG pO2 ABG HCO3 ABG O2 Saturation ABG Base Excess ABG Hemoglobin ABG Oxyhemoglobin ABG Sodium ABG Potassium ABG Chloride ABG Glucose Oxyhemoglobin Carboxyhemoglobin Sodium Potassium 2.9 L* Chloride 94.9 L Carbon Dioxide 33 H D BUN Creatinine 0.4 L Glucose 129 H POC Glucose 111 H 142 H Lactic Acid Calcium Magnesium Ferritin Total Bilirubin Direct Bilirubin AST ALT Alkaline Phosphatase Lactate Dehydrogenase C-Reactive Protein Total Protein Albumin 3.5 L Triglycerides Lipase Arterial Blood Glucose Arterial Blood Ionized Calcium Urine WBC (Auto) Coronavirus (PCR) SARS-CoV-2 IgG Ab Crossmatch 07/23/20 07/23/20 07/24/20 17:20 23:39 05:05 WBC 13.3 H RBC 3.40 L Hgb 10.8 L Hct 33.4 L MCV 98 H MCH MCHC RDW 16.7 H Lymph % (Auto) [place] % (Auto) 10.0 H Lymph # (Auto) [place] # (Auto) 1.3 H Baso # (Auto) Seg Neutrophils % Seg Neuts % (Manual) Lymphocytes % (Manual) Nucleated RBC % Seg Neutrophils # 9.0 H Seg Neutrophils # Man Lymphocytes # (Manual) Monocytes # (Manual) Eosinophils # (Manual) PT INR APTT D-Dimer Heparin Anti-Xa Level ABG pH POC ABG pCO2 POC ABG pO2 ABG pO2 ABG HCO3 ABG O2 Saturation ABG Base Excess ABG Hemoglobin ABG Oxyhemoglobin ABG Sodium ABG Potassium ABG Chloride ABG Glucose Oxyhemoglobin Carboxyhemoglobin Sodium Potassium Chloride Carbon Dioxide BUN Creatinine Glucose POC Glucose 150 H 120 H Lactic Acid Calcium Magnesium Ferritin Total Bilirubin Direct Bilirubin AST ALT Alkaline Phosphatase Lactate Dehydrogenase C-Reactive Protein Total Protein Albumin Triglycerides Lipase Arterial Blood Glucose Arterial Blood Ionized Calcium Urine WBC (Auto) Coronavirus (PCR) SARS-CoV-2 IgG Ab Crossmatch 07/24/20 07/24/20 07/24/20 05:05 05:39 11:30 WBC RBC Hgb Hct MCV MCH MCHC RDW Lymph % (Auto) [place] % (Auto) Lymph # (Auto) [place] # (Auto) Baso # (Auto) Seg Neutrophils % Seg Neuts % (Manual) Lymphocytes % (Manual) Nucleated RBC % Seg Neutrophils # Seg Neutrophils # Man Lymphocytes # (Manual) Monocytes # (Manual) Eosinophils # (Manual) PT INR APTT D-Dimer Heparin Anti-Xa Level ABG pH POC ABG pCO2 POC ABG pO2 ABG pO2 ABG HCO3 ABG O2 Saturation ABG Base Excess ABG Hemoglobin ABG Oxyhemoglobin ABG Sodium ABG Potassium ABG Chloride ABG Glucose Oxyhemoglobin Carboxyhemoglobin Sodium Potassium Chloride 97.4 L Carbon Dioxide BUN Creatinine 0.3 L Glucose 111 H POC Glucose 118 H 160 H Lactic Acid Calcium Magnesium Ferritin Total Bilirubin Direct Bilirubin AST ALT Alkaline Phosphatase Lactate Dehydrogenase C-Reactive Protein Total Protein Albumin Triglycerides Lipase Arterial Blood Glucose Arterial Blood Ionized Calcium Urine WBC (Auto) Coronavirus (PCR) SARS-CoV-2 IgG Ab Crossmatch 07/24/20 07/24/20 07/25/20 16:45 23:43 05:00 WBC RBC Hgb Hct MCV MCH MCHC RDW Lymph % (Auto) [place] % (Auto) Lymph # (Auto) [place] # (Auto) Baso # (Auto) Seg Neutrophils % Seg Neuts % (Manual) Lymphocytes % (Manual) Nucleated RBC % Seg Neutrophils # Seg Neutrophils # Man Lymphocytes # (Manual) Monocytes # (Manual) Eosinophils # (Manual) PT INR APTT D-Dimer Heparin Anti-Xa Level ABG pH POC ABG pCO2 POC ABG pO2 ABG pO2 ABG HCO3 ABG O2 Saturation ABG Base Excess ABG Hemoglobin ABG Oxyhemoglobin ABG Sodium ABG Potassium ABG Chloride ABG Glucose Oxyhemoglobin Carboxyhemoglobin Sodium Potassium Chloride Carbon Dioxide BUN Creatinine Glucose POC Glucose 181 H 122 H 114 H Lactic Acid Calcium Magnesium Ferritin Total Bilirubin Direct Bilirubin AST ALT Alkaline Phosphatase Lactate Dehydrogenase C-Reactive Protein Total Protein Albumin Triglycerides Lipase Arterial Blood Glucose Arterial Blood Ionized Calcium Urine WBC (Auto) Coronavirus (PCR) SARS-CoV-2 IgG Ab Crossmatch 07/25/20 07/25/20 07/25/20 11:44 16:44 23:41 WBC RBC Hgb Hct MCV MCH MCHC RDW Lymph % (Auto) [place] % (Auto) Lymph # (Auto) [place] # (Auto) Baso # (Auto) Seg Neutrophils % Seg Neuts % (Manual) Lymphocytes % (Manual) Nucleated RBC % Seg Neutrophils # Seg Neutrophils # Man Lymphocytes # (Manual) Monocytes # (Manual) Eosinophils # (Manual) PT INR APTT D-Dimer Heparin Anti-Xa Level ABG pH POC ABG pCO2 POC ABG pO2 ABG pO2 ABG HCO3 ABG O2 Saturation ABG Base Excess ABG Hemoglobin ABG Oxyhemoglobin ABG Sodium ABG Potassium ABG Chloride ABG Glucose Oxyhemoglobin Carboxyhemoglobin Sodium Potassium Chloride Carbon Dioxide BUN Creatinine Glucose POC Glucose 298 H 166 H 133 H Lactic Acid Calcium Magnesium Ferritin Total Bilirubin Direct Bilirubin AST ALT Alkaline Phosphatase Lactate Dehydrogenase C-Reactive Protein Total Protein Albumin Triglycerides Lipase Arterial Blood Glucose Arterial Blood Ionized Calcium Urine WBC (Auto) Coronavirus (PCR) SARS-CoV-2 IgG Ab Crossmatch 07/26/20 07/26/20 07/26/20 05:17 11:17 18:07 WBC RBC Hgb Hct MCV MCH MCHC RDW Lymph % (Auto) [place] % (Auto) Lymph # (Auto) [place] # (Auto) Baso # (Auto) Seg Neutrophils % Seg Neuts % (Manual) Lymphocytes % (Manual) Nucleated RBC % Seg Neutrophils # Seg Neutrophils # Man Lymphocytes # (Manual) Monocytes # (Manual) Eosinophils # (Manual) PT INR APTT D-Dimer Heparin Anti-Xa Level ABG pH POC ABG pCO2 POC ABG pO2 ABG pO2 ABG HCO3 ABG O2 Saturation ABG Base Excess ABG Hemoglobin ABG Oxyhemoglobin ABG Sodium ABG Potassium ABG Chloride ABG Glucose Oxyhemoglobin Carboxyhemoglobin Sodium Potassium Chloride Carbon Dioxide BUN Creatinine Glucose POC Glucose 113 H 157 H 154 H Lactic Acid Calcium Magnesium Ferritin Total Bilirubin Direct Bilirubin AST ALT Alkaline Phosphatase Lactate Dehydrogenase C-Reactive Protein Total Protein Albumin Triglycerides Lipase Arterial Blood Glucose Arterial Blood Ionized Calcium Urine WBC (Auto) Coronavirus (PCR) SARS-CoV-2 IgG Ab Crossmatch 07/26/20 07/27/20 07/27/20 23:44 08:26 08:26 WBC RBC 3.63 L Hgb Hct MCV 98 H MCH MCHC RDW 17.5 H Lymph % (Auto) [place] % (Auto) 10.6 H Lymph # (Auto) [place] # (Auto) 1.1 H Baso # (Auto) Seg Neutrophils % Seg Neuts % (Manual) Lymphocytes % (Manual) Nucleated RBC % Seg Neutrophils # Seg Neutrophils # Man Lymphocytes # (Manual) Monocytes # (Manual) Eosinophils # (Manual) PT INR APTT D-Dimer Heparin Anti-Xa Level ABG pH POC ABG pCO2 POC ABG pO2 ABG pO2 ABG HCO3 ABG O2 Saturation ABG Base Excess ABG Hemoglobin ABG Oxyhemoglobin ABG Sodium ABG Potassium ABG Chloride ABG Glucose Oxyhemoglobin Carboxyhemoglobin Sodium Potassium Chloride 97.9 L Carbon Dioxide 37 H D BUN Creatinine 0.4 L Glucose 115 H POC Glucose 148 H Lactic Acid Calcium Magnesium Ferritin Total Bilirubin Direct Bilirubin AST ALT Alkaline Phosphatase Lactate Dehydrogenase C-Reactive Protein Total Protein Albumin Triglycerides Lipase Arterial Blood Glucose Arterial Blood Ionized Calcium Urine WBC (Auto) Coronavirus (PCR) SARS-CoV-2 IgG Ab Crossmatch 07/27/20 07/27/20 07/27/20 11:41 16:50 23:22 WBC RBC Hgb Hct MCV MCH MCHC RDW Lymph % (Auto) [place] % (Auto) Lymph # (Auto) [place] # (Auto) Baso # (Auto) Seg Neutrophils % Seg Neuts % (Manual) Lymphocytes % (Manual) Nucleated RBC % Seg Neutrophils # Seg Neutrophils # Man Lymphocytes # (Manual) Monocytes # (Manual) Eosinophils # (Manual) PT INR APTT D-Dimer Heparin Anti-Xa Level ABG pH POC ABG pCO2 POC ABG pO2 ABG pO2 ABG HCO3 ABG O2 Saturation ABG Base Excess ABG Hemoglobin ABG Oxyhemoglobin ABG Sodium ABG Potassium ABG Chloride ABG Glucose Oxyhemoglobin Carboxyhemoglobin Sodium Potassium Chloride Carbon Dioxide BUN Creatinine Glucose POC Glucose 169 H 132 H 120 H Lactic Acid Calcium Magnesium Ferritin Total Bilirubin Direct Bilirubin AST ALT Alkaline Phosphatase Lactate Dehydrogenase C-Reactive Protein Total Protein Albumin Triglycerides Lipase Arterial Blood Glucose Arterial Blood Ionized Calcium Urine WBC (Auto) Coronavirus (PCR) SARS-CoV-2 IgG Ab Crossmatch 07/28/20 07/29/20 07/29/20 17:39 14:14 16:32 WBC RBC Hgb Hct MCV MCH MCHC RDW Lymph % (Auto) [place] % (Auto) Lymph # (Auto) [place] # (Auto) Baso # (Auto) Seg Neutrophils % Seg Neuts % (Manual) Lymphocytes % (Manual) Nucleated RBC % Seg Neutrophils # Seg Neutrophils # Man Lymphocytes # (Manual) Monocytes # (Manual) Eosinophils # (Manual) PT INR APTT D-Dimer Heparin Anti-Xa Level ABG pH POC ABG pCO2 POC ABG pO2 ABG pO2 ABG HCO3 ABG O2 Saturation ABG Base Excess ABG Hemoglobin ABG Oxyhemoglobin ABG Sodium ABG Potassium ABG Chloride ABG Glucose Oxyhemoglobin Carboxyhemoglobin Sodium Potassium Chloride Carbon Dioxide BUN Creatinine Glucose POC Glucose 187 H 188 H 193 H Lactic Acid Calcium Magnesium Ferritin Total Bilirubin Direct Bilirubin AST ALT Alkaline Phosphatase Lactate Dehydrogenase C-Reactive Protein Total Protein Albumin Triglycerides Lipase Arterial Blood Glucose Arterial Blood Ionized Calcium Urine WBC (Auto) Coronavirus (PCR) SARS-CoV-2 IgG Ab Crossmatch 07/30/20 07/30/20 07/30/20 12:03 15:59 23:20 WBC RBC Hgb Hct MCV MCH MCHC RDW Lymph % (Auto) [place] % (Auto) Lymph # (Auto) [place] # (Auto) Baso # (Auto) Seg Neutrophils % Seg Neuts % (Manual) Lymphocytes % (Manual) Nucleated RBC % Seg Neutrophils # Seg Neutrophils # Man Lymphocytes # (Manual) Monocytes # (Manual) Eosinophils # (Manual) PT INR APTT D-Dimer Heparin Anti-Xa Level ABG pH POC ABG pCO2 POC ABG pO2 ABG pO2 ABG HCO3 ABG O2 Saturation ABG Base Excess ABG Hemoglobin ABG Oxyhemoglobin ABG Sodium ABG Potassium ABG Chloride ABG Glucose Oxyhemoglobin Carboxyhemoglobin Sodium Potassium Chloride Carbon Dioxide BUN Creatinine Glucose POC Glucose 133 H 191 H 144 H Lactic Acid Calcium Magnesium Ferritin Total Bilirubin Direct Bilirubin AST ALT Alkaline Phosphatase Lactate Dehydrogenase C-Reactive Protein Total Protein Albumin Triglycerides Lipase Arterial Blood Glucose Arterial Blood Ionized Calcium Urine WBC (Auto) Coronavirus (PCR) SARS-CoV-2 IgG Ab Crossmatch 07/31/20 07/31/20 05:28 12:01 WBC RBC Hgb Hct MCV MCH MCHC RDW Lymph % (Auto) [place] % (Auto) Lymph # (Auto) [place] # (Auto) Baso # (Auto) Seg Neutrophils % Seg Neuts % (Manual) Lymphocytes % (Manual) Nucleated RBC % Seg Neutrophils # Seg Neutrophils # Man Lymphocytes # (Manual) Monocytes # (Manual) Eosinophils # (Manual) PT INR APTT D-Dimer Heparin Anti-Xa Level ABG pH POC ABG pCO2 POC ABG pO2 ABG pO2 ABG HCO3 ABG O2 Saturation ABG Base Excess ABG Hemoglobin ABG Oxyhemoglobin ABG Sodium ABG Potassium ABG Chloride ABG Glucose Oxyhemoglobin Carboxyhemoglobin Sodium Potassium Chloride Carbon Dioxide BUN Creatinine Glucose POC Glucose 128 H 137 H Lactic Acid Calcium Magnesium Ferritin Total Bilirubin Direct Bilirubin AST ALT Alkaline Phosphatase Lactate Dehydrogenase C-Reactive Protein Total Protein Albumin Triglycerides Lipase Arterial Blood Glucose Arterial Blood Ionized Calcium Urine WBC (Auto) Coronavirus (PCR) SARS-CoV-2 IgG Ab Crossmatch Allied health notes reviewed: nursing
--- NOTE | 2020-07-31 16:16 | Progress Note ---
Assessment and Plan Assessment and Plan Improving Positive COVID-19 test; 05/10/2020 Negative COVID-19 test; 06/30/2020 --Acute hypoxemic respiratory failure; on 8 L oxygen today Continue to wean the oxygen dose, supportive care Pulmonary following On 10 L nasal cannula oxygen --Pneumothorax status post right chest tube Chest tube removed 07/23/2020 Post removal chest x-ray no pneumothorax Patient is requiring 10 L nasal cannula oxygen Wean oxygen as tolerated --Severe hypokalemia; resolved Monitor electrolytes, treat as needed --Sinus tachycardia: Significantly improved HR 80s - 110, monitor --Severe COVID-19 bilateral pneumonia Coronavirus protocol: IV steroid therapy, completed remdesivir, isolation precautions, contact precautions, prone positioning while in bed, pulmonary toilet. ID following SARS CoV-2 IgG positive patient is NOT a candidate for convalescent plasma --Elevated D-dimers; Patient had CTA chest ; negative for PE, patient already had lower extremity venous Doppler which was negative for DVT We will discontinue empiric therapeutic Lovenox, and change to DVT prophylaxis dose 40 mg subcu daily --Pseudomonas bacteremia; ID following, completed cefepime Monitor off antibiotics --Severe sepsis/septic shock, monitor off pressors Completed cefepime, monitor off antibiotics -- Acute kidney injury (SEN) , likely vasomotor nephropathy Resolved, avoid nephrotoxins --Acute on chronic anemia Guaiac test positive, GI evaluated the patient Patient H&H is normal range now Hb 11.8 -- Elevated liver function tests; resolved LFTs within normal limits Probably secondary to alcoholic liver disease. --Colonic distention GI evaluated colonic distention resolved recommend stool softeners -- DVT prophylaxis On therapeutic Lovenox Closely monitor the patient and adjust management as needed Chest tube removed Patient on 10 L nasal cannula oxygen, wean as tolerated Elevated D-dimers, on empiric therapeutic Lovenox CTA chest negative for PE,LE DVT negative, therapeutic Lovenox DC'd Changed to prophylactic Lovenox Physical therapy, evaluation noted and appreciated, recommend LTAC versus subacute Subjective Date of service: 07/31/20 Principal diagnosis: Ac hypoxemic resp failure; COVID-19; Severe Sepsis; Shaggy PNA; Alcohol Abuse Interval history: Brief history and hospital course; 50 YO Male with Obesity, ETOH Dependence presents to ED for evaluation. Patient states that he has experienced shortness of breath, generalized weakness, fatigue, malaise, body aches, decreased exercise tolerance over the past 5 days with persistently worsening symptoms over the same timeframe. EMS was notified and upon arrival the patient was found to be in distress with a pulse oximetry of 76% on room air as well as fever to 103 F. Patient was placed on suppleme ntal oxygen and subsequently transported to [facility] for further care and evaluation. Patient seen and evaluated in the emergency department. All lab and imaging studies reviewed. Patient underwent chest x-ray and was found to have bilateral pneumonia. Patient also found to have a pulse oximetry of 86% on 4 L nasal cannula. Patient initiated on a high flow submental oxygen with improvement of pulse oximetry. Patient admitted to medical floor and initiated on pneumonia protocol as well as COVID-19 protocol. Patient also found to have acute kidney injury as well as elevated liver function test suspected secondary to alcohol dependence. Patient diagnosed with coronavirus at time of admission Nuclear on 07/01/2020discharge 24 breast you no-year-old just on the unit secondary it is important the fluids insulin and monitor her from walkin05/17/2020; patient with severe COVID-19 pneumonia, in isolation room Patient is on high flow oxygen, and BiPAP 05/18/20; patient feels slightly better still hypoxic, requiring continuous high flow oxygen and BiPAP Respiratory team trying to wean 05/19/20; patient is severely hypoxemic requiring continuous BiPAP today, complains of generalized weakness Trying to wean off high flow oxygen, patient is in isolation 05/20/2020; patient remains on high flow oxygen/BiPAP/100% nonrebreather. Still is hypoxemic Has sinus tachycardia patient in mild distress Wean off high flow oxygen as tolerated, pulmonary critical following 05/21/20; patient is critically ill, on continuous BiPAP remains hypoxemic in mild distress Patient has severe Covid Pneumonia with persistent hypoxemia and poor prognosis 05/22/2020 Patient was intubated last night because of persistent hypoxemia 05/23/20 On Vent 05/24 to 06/14 On Vent Weaning in progress 06/16/2020. Patient currently on mechanical ventilation with AC mode rate 30, tidal volume 500, FiO2 70% and PEEP of 16. Continue anticoagulation with Lovenox 110 milligrams subcu every 12 hours. Wean sedation of fentanyl/Versed as needed. Currently with IV steroids of Solu-Medrol 40 mg IV every 12 hours. Patient will likely need tracheostomy per pulmonary recommendations. Continue pressors to maintain MAP > 65. 06/17/2020. Patient currently on mechanical ventilation with AC mode rate 30, tidal volume 500, FiO2 65% and PEEP of 16. Continue anticoagulation with Lovenox 110 milligrams subcu every 12 hours. Wean sedation of fentanyl/Versed as needed. Currently with IV steroids of Solu-Medrol 40 mg IV every 12 hours. Patient will likely need tracheostomy per pulmonary recommendations. 06/18/2020. Patient currently on mechanical ventilation with AC mode rate 30, tidal volume 500, FiO2 70% and PEEP of 16. Continue Lovenox for anticoagulation and fentanyl/Versed for sedation. Wean steroids per pulmonary. CIWA protocol initiated for history of EtOH dependence 06/19/2020. Patient currently on mechanical ventilation with AC mode rate 30, tidal volume 500, FiO2 60% and PEEP of 16. Wean FiO2 as tolerated per protocol. Continue Lovenox for anticoagulation and fentanyl/Versed for sedation. Wean steroids per pulmonary. CIWA protocol initiated for history of EtOH dependence 06/20/2020. Patient currently on mechanical ventilation with AC mode rate 30, tidal volume 500, FiO2 60% and PEEP of 16. Wean FiO2 as tolerated, SBT per protocol. Continue Lovenox for anticoagulation and fentanyl/Versed for sedation. Wean steroids per pulmonary. Continue pressors to maintain MAP > 65 mmHg. Patient remains on ETT. Consider tracheostomy placement once oxygenation is better per pulmonary. CIWA protocol initiated for history of EtOH dependence. 06/21/2020. Patient with a small apical pneumothorax discovered yesterday. General surgery consulted and consider placing chest tube. Follow-up serial chest x-ray patient currently on mechanical ventilation with AC mode rate 30, tidal volume 500, FiO2 60% and PEEP of 16. Wean FiO2 as tolerated, SBT per protocol. Continue Lovenox for anticoagulation and fentanyl/Versed for sed ation. Wean steroids per pulmonary. Continue pressors to maintain MAP > 65 mmHg. Patient remains on ETT. Consider tracheostomy placement once oxygenation is better per pulmonary. CIWA protocol initiated for history of EtOH dependence. 06/22. Status post right chest tube placement yesterday. Remains mechanically ventilated on pressors. Examination today shows slightly distended abdomen. K UB ordered. Awaiting stool guaiac. Plan to get a GI evaluation. 06/23. Has colonic distention on the x-ray. Discussed with GI-advised stool softeners for now and close monitoring. No indication for colonic decompression at this time. Guaiac test is positive. No emergent indication for endoscopy at this point as per GI. Continue to monitor hemoglobin. 06/24. Remains intubated. On pressors. GI following for positive guaiac stool and anemia, and colonic distention. 06/25. Repeat abdominal xray ordered. Remains on mechanical ventilation. 06/26. Abdominal xray - resolved colonic distension. Mechanically ventilated. 06/27. Plan for trach and PEG. 06/28: Awaiting trach and Peg. S\ome Bm REPORTED, will continue to monitor 06/29: Resume care, patient remains on ventilator support, waiting on trach and PEG placement. BM reported by the RN, continue to monitor. 06/30: Unable to wean off from vent, patient will need trach and PEG. Continue supportive care, tolerating tube feed. Monitor CBC and BMP 07/01: Continue mechanical ventilation, tube feeding as tolerated. Sedation as needed per mechanical ventilation protocol. Waiting on trach and PEG placement. 07/02: Continue current management, tube feeding, monitor CBC and BMP. Need trach and PEG-waiting on scheduling. Pulmonary critical care following. 07/03: wean off vent as tolerated. follow clinically. need trach and PEG 07/04: unable to wean. CT head ordered to assess for any changes but too unstable to do the test. need trach and PEG. 07/05: plan for trach/peg - GS following. off pressor - on midodrine. renal function stable. intubated, but alert and can follow minor commend. discussed with daughter by phone. 07/06/2020; Dr. Márquez discussed with patient's daughter about trach but the daughter needs time to think about it. Patient was intubated and alert, FiO2 40%. 07/07/2020; patient was intubated and alert, FiO2 40%. Patient was diaphoretic, tachycardic, and EKG was done which was abnormal for me. I called coat fitter Dr Louis saw the EKG and said it is normal EKG, and the findings are abnormal. 07/08/2020; no significant change, patient is intubated and alert. 1/2: Patient continues on current management. Pulmonary recommending trach and PEG awaiting patient's decision on this. Will check intermittent labs 1/3: Ordered CT still pending. Patient was agitated at night. Appears to have calmed down. Will repeat labs today. 07/12: Continue supportive care, awaiting CPAP trial. discussed with pulmonary. Obtain labs today. Trach and Peg planned 07/13: Continues to current management, PLAN FOR Trach and PEG on Sunday if patient is not able to liberated from the ventilator, Continue to monitor Fever curve and repeat Sepsis work up if persistent fever 07/14: Now extubated, continue to work up. 07/15: Clinical stable for transfer to [facility], still with fever and now showing bactermia. Continue Abx per ID. monitor fever 07/16: Continue supportive care. MONITOR FEVER CURVE, Adjust antibiotics as tolerated 07/17: Chest tube remains in place. More lethargic, Requested BIPAP to bedside, Chest tube to be discontinued, Awaiting Pysch input. 07/18: Chest tube remains in place repeat chest x-ray shows persistent bilateral opacity with mild improvement. Continue nebulizer treatments. Hypokalemia also noted will replace. Pulmonary and surgical input noted 07/19: Patient is a 50-year-old male admitted with shortness of breath ended up on mechanical ventilation noted to have pneumothorax has a chest tube in place. Has been successfully extubated but remains with delirium secondary to medical condition and also mild to moderate respiratory distress on Venturi mask. Continue weaning attempts. Patient still with chest tube. Continue serial x- rays. Will discuss with case management about possible LTAC placement. Blood cultures are currently returning Pseudomonas species. ID is following. 07/20/2020; patient continues to feel better, high flow oxygen and BiPAP Chest tube in place, continue current management, pulmonary surgery following 07/21/2020:Patient remains on High flow o2 07/22/2020; patient remains on high flow oxygen 8 L 100% O2 sat 93% Case management checking for LTAC placement 07/23/2020; patient remains on high flow oxygen, wean oxygen as tolerated, severe hypokalemia Replenish per protocol monitor levels 07/24/2020; patient had chest tube removal yesterday 07/23/2019 and, post removal chest x-ray no pneumothorax no acute abnormalities Patient feels slightly better continues to require high flow oxygen Wean as tolerated, physical and occupational therapy, DC planning 07/26/2020; patient on 3 L nasal cannula oxygen, patient feels better 07/27/2020; patient was saturating well on 3 L of nasal cannula oxygen, however today patient is on high flow oxygen 15 L Complains of some congestion, wean oxygen levels to 3-5 as tolerated Discharge planning LTAC has refused patient,Possible home with home health versus placement when medically stable 07/28/2020; continue to wean oxygen, patient is on 10 L, awaiting placement 07/29/2020; continues to be on 10 L nasal cannula oxygen, wean as tolerated Patient is on empiric therapeutic dose Lovenox, due to elevated D-dimers Patient is stable for CTA chest today, follow the report and adjust Lovenox as needed DC planning per case management, with pending placement 07/30/2020; patient feels slightly better, oxygen reduced to 8 L of nasal cannula Will check PT OT, pending placement 07/31/2020 Patient on 8 L of nasal cannula oxygen Objective - Exam Narrative Exam: Intubated - Constitutional Vitals: Vital Signs - 12hr 07/31/20 07/31/20 07/31/20 08:13 09:10 09:59 Temperature 98.6 F Pulse Rate 107 H Respiratory 16 Rate Blood Pressure Blood Pressure 119/73 [Right] O2 Sat by Pulse 97 99 94 Oximetry 07/31/20 12:04 Temperature 98.2 F Pulse Rate 118 H Respiratory 20 Rate Blood Pressure 121/78 Blood Pressure [Right] O2 Sat by Pulse 95 Oximetry General appearance: Present: no acute distress, well-nourished - EENT Eyes: PERRL, EOM intact ENT: hearing intact, clear oral mucosa Ears: bilateral: normal - Neck Neck: supple, normal ROM - Respiratory Respiratory effort: normal Respiratory: bilateral: CTA - Breasts Breasts: normal - Cardiovascular Rhythm: regular Heart Sounds: Present: S1 & S2. Absent: gallop, rub Extremities: pulses intact, No edema, normal color, Full ROM - Gastrointestinal General gastrointestinal: Present: soft, non-tender, non-distended, normal bowel sounds - Genitourinary Male genitourinary: normal - Integumentary Integumentary: clear, warm, dry - Musculoskeletal Musculoskeletal: 1, strength equal bilaterally - Neurologic Neurologic: moves all extremities - Psychiatric Psychiatric: memory intact, appropriate mood/affect, intact judgment & insight - Allied health notes Allied health notes reviewed: nursing, case management - Labs CBC & Chem 7: 07/27/20 08:26 07/27/20 08:26 Labs: Abnormal lab results 07/30/20 07/31/20 07/31/20 Range/Units 23:20 05:28 12:01 POC Glucose 144 H 128 H 137 H (70-105) mg/dL HEART Score - HEART Score Troponin: Troponin T 0.015 ng/mL (0.00-0.029) 07/07/20 10:00
[2020-07-31] MEDS: ENOXAPARIN 40 MG/0.4 ML INJ SUB-Q SCH (22:02)
[2020-08-01] MEDS: INSULIN LISPRO 100 UNIT/ML SUB-Q SCH ×4 (08:53→22:01)
[2020-08-01] MEDS: QUEtiapine 200 MG TAB PO SCH (09:14)
[2020-08-01] MEDS: PHENobarbital 32.4 MG TAB PO SCH ×2 (09:14→22:01)
[2020-08-01] MEDS: MIDODRINE 5 MG TAB PO SCH ×3 (09:14→16:07)
[2020-08-01] MEDS: FOLIC ACID 1 MG TAB PO SCH (09:14)
[2020-08-01] MEDS: guaiFENesin ER 600 MG TAB PO SCH ×2 (09:15→22:00)
[2020-08-01] MEDS: predniSONE 10 MG TAB PO SCH (09:15)
[2020-08-01] MEDS: LANSOPRAZOLE 30 MG SOLUTAB FEEDTUBE SCH (09:15)
[2020-08-01] MEDS: METOPROLOL TARTRATE 25 MG TAB PO SCH ×2 (09:15→22:00)
--- NOTE | 2020-08-01 12:37 | Progress Note ---
Assessment and Plan Assessment and Plan Improving Positive COVID-19 test; 05/10/2020 Negative COVID-19 test; 06/30/2020 --Acute hypoxemic respiratory failure; on 8 L oxygen today Continue to wean the oxygen dose, supportive care Pulmonary following On 10 L nasal cannula oxygen --Pneumothorax status post right chest tube Chest tube removed 07/23/2020 Post removal chest x-ray no pneumothorax Patient is requiring 10 L nasal cannula oxygen Wean oxygen as tolerated --Severe hypokalemia; resolved Monitor electrolytes, treat as needed --Sinus tachycardia: Significantly improved HR 80s - 110, monitor --Severe COVID-19 bilateral pneumonia Coronavirus protocol: IV steroid therapy, completed remdesivir, isolation precautions, contact precautions, prone positioning while in bed, pulmonary toilet. ID following SARS CoV-2 IgG positive patient is NOT a candidate for convalescent plasma --Elevated D-dimers; Patient had CTA chest ; negative for PE, patient already had lower extremity venous Doppler which was negative for DVT We will discontinue empiric therapeutic Lovenox, and change to DVT prophylaxis dose 40 mg subcu daily --Pseudomonas bacteremia; ID following, completed cefepime Monitor off antibiotics --Severe sepsis/septic shock, monitor off pressors Completed cefepime, monitor off antibiotics -- Acute kidney injury (SEN) , likely vasomotor nephropathy Resolved, avoid nephrotoxins --Acute on chronic anemia Guaiac test positive, GI evaluated the patient Patient H&H is normal range now Hb 11.8 -- Elevated liver function tests; resolved LFTs within normal limits Probably secondary to alcoholic liver disease. --Colonic distention GI evaluated colonic distention resolved recommend stool softeners -- DVT prophylaxis On therapeutic Lovenox Closely monitor the patient and adjust management as needed Chest tube removed Patient on 10 L nasal cannula oxygen, wean as tolerated Elevated D-dimers, on empiric therapeutic Lovenox CTA chest negative for PE,LE DVT negative, therapeutic Lovenox DC'd Changed to prophylactic Lovenox Physical therapy, evaluation noted and appreciated, recommend LTAC versus subacute To home if possible Subjective Date of service: 08/01/20 Principal diagnosis: Ac hypoxemic resp failure; COVID-19; Severe Sepsis; Shaggy PNA; Alcohol Abuse Interval history: Brief history and hospital course; 50 YO Male with Obesity, ETOH Dependence presents to ED for evaluation. Patient states that he has experienced shortness of breath, generalized weakness, fatigue, malaise, body aches, decreased exercise tolerance over the past 5 days with persistently worsening symptoms over the same timeframe. EMS was notified and upon arrival the patient was found to be in distress with a pulse oximetry of 76% on room air as well as fever to 103 F. Patient was placed on supplemental oxygen and subsequently transported to [facility] for further care and evaluation. Patient seen and evaluated in the emergency department. All lab and imaging studies reviewed. Patient underwent chest x-ray and was found to have bilateral pneumonia. Patient also found to have a pulse oximetry of 86% on 4 L nasal cannula. Patient initiated on a high flow submental oxygen with improvement of pulse oximetry. Patient admitted to medical floor and initiated on pneumonia protocol as well as COVID-19 protocol. Patient also found to have acute kidney injury as well as elevated liver function test suspected secondary to alcohol dependence. Patient diagnosed with coronavirus at time of admission Nuclear on 07/01/2020discharge 24 breast you no-year-old just on the unit second manjula it is important the fluids insulin and monitor her from walkin05/17/2020; patient with severe COVID-19 pneumonia, in isolation room Patient is on high flow oxygen, and BiPAP 05/18/20; patient feels slightly better still hypoxic, requiring continuous high flow oxygen and BiPAP Respiratory team trying to wean 05/19/20; patient is severely hypoxemic requiring continuous BiPAP today, compla ins of generalized weakness Trying to wean off high flow oxygen, patient is in isolation 05/20/2020; patient remains on high flow oxygen/BiPAP/100% nonrebreather. Still is hypoxemic Has sinus tachycardia patient in mild distress Wean off high flow oxygen as tolerated, pulmonary critical following 05/21/20; patient is critically ill, on continuous BiPAP remains hypoxemic in mild distress Patient has severe Covid Pneumonia with persistent hypoxemia and poor prognosis 05/22/2020 Patient was intubated last night because of persistent hypoxemia 05/23/20 On Vent 05/24 to 06/14 On Vent Weaning in progress 06/16/2020. Patient currently on mechanical ventilation with AC mode rate 30, tidal volume 500, FiO2 70% and PEEP of 16. Continue anticoagulation with Lovenox 110 milligrams subcu every 12 hours. Wean sedation of fentanyl/Versed as needed. Currently with IV steroids of Solu-Medrol 40 mg IV every 12 hours. Patient will likely need tracheostomy per pulmonary recommendations. Continue pressors to maintain MAP > 65. 06/17/2020. Patient currently on mechanical ventilation with AC mode rate 30, tidal volume 500, FiO2 65% and PEEP of 16. Continue anticoagulation with Lovenox 110 milligrams subcu every 12 hours. Wean sedation of fentanyl/Versed as needed. Currently with IV steroids of Solu-Medrol 40 mg IV every 12 hours. Patient will likely need tracheostomy per pulmonary recommendations. 06/18/2020. Patient currently on mechanical ventilation with AC mode rate 30, tidal volume 500, FiO2 70% and PEEP of 16. Continue Lovenox for anticoagulation and fentanyl/Versed for sedation. Wean steroids per pulmonary. CIWA protocol initiated for history of EtOH dependence 06/19/2020. Patient currently on mechanical ventilation with AC mode rate 30, tidal volume 500, FiO2 60% and PEEP of 16. Wean FiO2 as tolerated per protocol. Continue Lovenox for anticoagulation and fentanyl/Versed for sedation. Wean steroids per pulmonary. CIWA protocol initiated for history of EtOH dependence 06/20/2020. Patient currently on mechanical ventilation with AC mode rate 30, tidal volume 500, FiO2 60% and PEEP of 16. Wean FiO2 as tolerated, SBT per prot ocol. Continue Lovenox for anticoagulation and fentanyl/Versed for sedation. Wean steroids per pulmonary. Continue pressors to maintain MAP > 65 mmHg. Patient remains on ETT. Consider tracheostomy placement once oxygenation is better per pulmonary. CIWA protocol initiated for history of EtOH dependence. 06/21/2020. Patient with a small apical pneumothorax discovered yesterday. General surgery consulted and consider placing chest tube. Follow-up serial chest x-ray patient currently on mechanical ventilation with AC mode rate 30, tidal volume 500, FiO2 60% and PEEP of 16. Wean FiO2 as tolerated, SBT per protocol. Continue Lovenox for anticoagulation and fentanyl/Versed for sedation. Wean steroids per pulmonary. Continue pressors to maintain MAP > 65 mmHg. Patient remains on ETT. Consider tracheostomy placement once oxygenation is better per pulmonary. CIWA protocol initiated for history of EtOH dependence. 06/22. Status post right chest tube placement yesterday. Remains mechanically ventilated on pressors. Examination today shows slightly distended abdomen. KUB ordered. Awaiting stool guaiac. Plan to get a GI evaluation. 12/16. Has colonic distention on the x-ray. Discussed with GI-advised stool softeners for now and close monitoring. No indication for colonic decompression at this time. Guaiac test is positive. No emergent indication for endoscopy at this point as per GI. Continue to monitor hemoglobin. 06/24. Remains intubated. On pressors. GI following for positive guaiac stool and anemia, and colonic distention. 06/25. Repeat abdominal xray ordered. Remains on mechanical ventilation. 06/26. Abdominal xray - resolved colonic distension. Mechanically ventilated. 06/27. Plan for trach and PEG. 06/28: Awaiting trach and Peg. S\ome Bm REPORTED, will continue to monitor 06/29: Resume care, patient remains on ventilator support, waiting on trach and PEG placement. BM reported by the RN, continue to monitor. 06/30: Unable to wean off from vent, patient will need trach and PEG. Continue supportive care, tolerating tube feed. Monitor CBC and BMP 07/01: Continue mechanical ventilation, tube feeding as tolerated. Sedation as needed per mechanical ventilation protocol. Waiting on trach and PEG placement. 07/02: Continue current management, tube feeding, monitor CBC and BMP. Need trach and PEG-waiting on scheduling. Pulmonary critical care following. 07/03: wean off vent as tolerated. follow clinically. need trach and PEG 07/04: unable to wean. CT head ordered to assess for any changes but too unstable to do the test. need trach and PEG. 07/05: plan for trach/peg - GS following. off pressor - on midodrine. renal function stable. intubated, but alert and can follow minor commend. discussed with daughter by phone. 07/06/2020; Dr. Márquez discussed with patient's daughter about trach but the daughter needs time to think about it. Patient was intubated and alert, FiO2 40%. 07/07/2020; patient was intubated and alert, FiO2 40%. Patient was diaphoretic, tachycardic, and EKG was done which was abnormal for me. I called manager of business Dr Loius saw the EKG and said it is normal EKG, and the findings are abnormal. 07/08/2020; no significant change, patient is intubated and alert. 1/2: Patient continues on current management. Pulmonary recommending trach and PEG awaiting patient's decision on this. Will check intermittent labs 07/11: Ordered CT still pending. Patient was agitated at night. Appears to have calmed down. Will repeat labs today. 07/12: Continue supportive care, awaiting CPAP trial. discussed with pulmonary. Obtain labs today. Trach and Peg planned 07/13: Continues to current management, PLAN FOR Trach and PEG on Sunday if patient is not able to liberated from the ventilator, Continue to monitor Fever curve and repeat Sepsis work up if persistent fever 07/14: Now extubated, continue to work up. 07/15: Clinical stable for transfer to [facility], still with fever and now showing bactermia. Continue Abx per ID. monitor fever 07/16: Continue supportive care. MONITOR FEVER CURVE, Adjust antibiotics as tolerated 07/17: Chest tube remains in place. More lethargic, Requested BIPAP to bedside, Chest tube to be discontinued, Awaiting Pysch input. 07/18: Chest tube remains in place repeat chest x-ray shows persistent bilateral opacity with mild improvement. Continue nebulizer treatments. Hypokalemia also noted will replace. Pulmonary and surgical input noted 07/19: Patient is a 50-year-old male admitted with shortness of breath ended up on mechanical ventilation noted to have pneumothorax has a chest tube in place. Has been successfully extubated but remains with delirium secondary to medical condition and also mild to moderate respiratory distress on Venturi mask. Continue weaning attempts. Patient still with chest tube. Continue serial x- rays. Will discuss with case management about possible LTAC placement. Blood cultures are currently returning Pseudomonas species. ID is following. 07/20/2020; patient continues to feel better, high flow oxygen and BiPAP Chest tube in place, continue current management, pulmonary surgery following 07/21/2020:Patient remains on High flow o2 07/22/2020; patient remains on high flow oxygen 8 L 100% O2 sat 93% Case management checking for LTAC placement 07/23/2020; patient remains on high flow oxygen, wean oxygen as tolerated, severe hypokalemia Replenish per protocol monitor levels 07/24/2020; patient had chest tube removal yesterday 07/23/2019 and, post removal chest x-ray no pneumothorax no acute abnormalities Patient feels slightly better continues to require high flow oxygen Wean as tolerated, physical and occupational therapy, DC planning 07/26/2020; patient on 3 L nasal cannula oxygen, patient feels better 07/27/2020; patient was saturating well on 3 L of nasal cannula oxygen, however today patient is on high flow oxygen 15 L Complains of some congestion, wean oxygen levels to 3-5 as tolerated Discharge planning LTAC has refused patient,Possible home with home health versus placement when medically stable 07/28/2020; continue to wean oxygen, patient is on 10 L, awaiting placement 07/29/2020; continues to be on 10 L nasal cannula oxygen, wean as tolerated Patient is on empiric therapeutic dose Lovenox, due to elevated D-dimers Patient is stable for CTA chest today, follow the report and adjust Lovenox as needed DC planning per case management, with pending placement 07/30/2020; patient feels slightly better, oxygen reduced to 8 L of nasal cannula Will check PT OT, pending placement 07/31/2020 Patient on 8 L of nasal cannula oxygen Objective - Constitutional Vitals: Vital Signs - 12hr 08/01/20 08/01/20 08/01/20 04:21 07:34 07:46 Temperature 97.7 F 97.9 F Pulse Rate 98 H 109 H Respiratory 20 18 Rate Blood Pressure 119/76 124/81 O2 Sat by Pulse 96 98 94 Oximetry 08/01/20 08/01/20 08/01/20 08:25 09:15 10:00 Temperature Pulse Rate 109 H Respiratory 20 Rate Blood Pressure 124/81 O2 Sat by Pulse 90 91 Oximetry 08/01/20 11:04 Temperature 98.3 F Pulse Rate 116 H Respiratory 18 Rate Blood Pressure 112/78 O2 Sat by Pulse 98 Oximetry General appearance: Present: no acute distress, well-nourished - EENT Eyes: PERRL, EOM intact ENT: hearing intact, clear oral mucosa Ears: bilateral: normal - Neck Neck: supple, normal ROM - Respiratory Respiratory effort: normal Respiratory: bilateral: CTA - Breasts Breasts: normal - Cardiovascular Heart rate: 76 Rhythm: regular Heart Sounds: Present: S1 & S2. Absent: gallop, rub Extremities: pulses intact, No edema, normal color, Full ROM - Gastrointestinal General gastrointestinal: Present: soft, non-tender, non-distended, normal bowel sounds - Genitourinary Male genitourinary: normal - Integumentary Integumentary: clear, warm, dry - Musculoskeletal Musculoskeletal: 1, strength equal bilaterally - Neurologic Neurologic: moves all extremities - Psychiatric Psychiatric: memory intact, appropriate mood/affect, intact judgment & insight - Labs CBC & Chem 7: 07/27/20 08:26 07/27/20 08:26 Labs: Abnormal lab results 07/31/20 07/31/20 08/01/20 Range/Units 16:43 20:28 07:44 POC Glucose 170 H 142 H 111 H (70-105) mg/dL 08/01/20 Range/Units 11:02 POC Glucose 137 H (70-105) mg/dL HEART Score - HEART Score Troponin: Troponin T 0.015 ng/mL (0.00-0.029) 07/07/20 10:00
[2020-08-01] MEDS: ENOXAPARIN 40 MG/0.4 ML INJ SUB-Q SCH (22:01)
[2020-08-02 06:24] LABS: Basophils # (Auto) 0.1 K/mm3 (0.0-0.1); Basophils % (Auto) 0.4 % (0.0-1.8); Eosinophils # (Auto) 0.4 K/mm3 (0.0-0.4); Eosinophils % (Auto) 3.3 % (0.0-4.3); Hematocrit 37.9 % (35.5-45.6); Hemoglobin 12.3 gm/dl (11.8-15.2); Lymphocytes # (Auto) 2.3 K/mm3 (1.2-5.4); Lymphocytes % (Auto) 18.3 % (13.4-35.0); Mean Corpuscular HGB Conc 33 % (32-34); Mean Corpuscular Volume 99 fl (84-94); Monocytes # (Auto) 1.2 K/mm3 (0.0-0.8); Monocytes % (Auto) 9.7 % (0.0-7.3); Platelet Count 267 K/mm3 (140-440); Red Blood Count 3.85 M/mm3 (3.65-5.03); Red Cell Distribution Width 16.9 % (13.2-15.2)
[2020-08-02 06:46] LABS: Alanine Aminotransferase 118 units/L (7-56); Albumin 3.3 g/dL (3.9-5); BUN/Creatinine Ratio 43; Blood Urea Nitrogen 13 mg/dL (9-20); Calcium 9.3 mg/dL (8.4-10.2); Hemolysis Index 6
[2020-08-02] MEDS ORDERED: POTASSIUM CHLORIDE ER 20 MEQ TAB PO ONE ×2 (07:52→18:29)
[2020-08-02] MEDS: POTASSIUM CHLORIDE 10 MEQ 10 MEQ/100 ML BAG IV SCH ×2 (08:29→09:05)
[2020-08-02] MEDS: guaiFENesin ER 600 MG TAB PO SCH ×2 (09:05→22:06)
[2020-08-02] MEDS: METOPROLOL TARTRATE 25 MG TAB PO SCH ×2 (09:06→22:06)
[2020-08-02] MEDS: MIDODRINE 5 MG TAB PO SCH ×3 (09:07→16:28)
[2020-08-02] MEDS: FOLIC ACID 1 MG TAB PO SCH (09:07)
[2020-08-02] MEDS: PHENobarbital 32.4 MG TAB PO SCH ×2 (09:08→22:07)
[2020-08-02] MEDS: predniSONE 10 MG TAB PO SCH (09:08)
[2020-08-02] MEDS: LANSOPRAZOLE 30 MG SOLUTAB FEEDTUBE SCH (09:08)
[2020-08-02] MEDS: QUEtiapine 200 MG TAB PO SCH (09:08)
[2020-08-02] MEDS: INSULIN LISPRO 100 UNIT/ML SUB-Q SCH ×5 (09:25→22:38)
[2020-08-02] MEDS: ENOXAPARIN 40 MG/0.4 ML INJ SUB-Q SCH (22:05)
--- NOTE | 2020-08-03 01:35 | Progress Note ---
Assessment and Plan Assessment and Plan Improving Positive COVID-19 test; 05/10/2020 Negative COVID-19 test; 06/30/2020 --Acute hypoxemic respiratory failure; on 8 L oxygen today Continue to wean the oxygen dose, supportive care Pulmonary following On 10 L nasal cannula oxygen --Pneumothorax status post right chest tube Chest tube removed 07/23/2020 Post removal chest x-ray no pneumothorax Patient is requiring 10 L nasal cannula oxygen Wean oxygen as tolerated --Severe hypokalemia; resolved Monitor electrolytes, treat as needed --Sinus tachycardia: Significantly improved HR 80s - 110, monitor --Severe COVID-19 bilateral pneumonia Coronavirus protocol: IV steroid therapy, completed remdesivir, isolation precautions, contact precautions, prone positioning while in bed, pulmonary toilet. ID following SARS CoV-2 IgG positive patient is NOT a candidate for convalescent plasma --Elevated D-dimers; Patient had CTA chest ; negative for PE, patient already had lower extremity venous Doppler which was negative for DVT We will discontinue empiric therapeutic Lovenox, and change to DVT prophylaxis dose 40 mg subcu daily --Pseudomonas bacteremia; ID following, completed cefepime Monitor off antibiotics --Severe sepsis/septic shock, monitor off pressors Completed cefepime, monitor off antibiotics -- Acute kidney injury (SEN) , likely vasomotor nephropathy Resolved, avoid nephrotoxins --Acute on chronic anemia Guaiac test positive, GI evaluated the patient Patient H&H is normal range now Hb 11.8 -- Elevated liver function tests; resolved LFTs within normal limits Probably secondary to alcoholic liver disease. --Colonic distention GI evaluated colonic distention resolved recommend stool softeners -- DVT prophylaxis On therapeutic Lovenox Closely monitor the patient and adjust management as needed Chest tube removed Patient on 10 L nasal cannula oxygen, wean as tolerated Elevated D-dimers, on empiric therapeutic Lovenox CTA chest negative for PE,LE DVT negative, therapeutic Lovenox DC'd Changed to prophylactic Lovenox Physical therapy, evaluation noted and appreciated, recommend LTAC versus subacute To home if possible Subjective Date of service: 08/02/20 Principal diagnosis: Ac hypoxemic resp failure; COVID-19; Severe Sepsis; Shaggy PNA; Alcohol Abuse Interval history: Brief history and hospital course; 50 YO Male with Obesity, ETOH Dependence presents to ED for evaluation. Patient states that he has experienced shortness of breath, generalized weakness, fatigue, malaise, body aches, decreased exercise tolerance over the past 5 days with persistently worsening symptoms over the same timeframe. EMS was notified and upon arrival the patient was found to be in distress with a pulse oximetry of 76% on room air as well as fever to 103 F. Patient was placed on supplemental oxygen and subsequently transported to [facility] for further care and evaluation. Patient seen and evaluated in the emergency department. All lab and imaging studies reviewed. Patient underwent chest x-ray and was found to have bilateral pneumonia. Patient also found to have a pulse oximetry of 86% on 4 L nasal cannula. Patient initiated on a high flow submental oxygen with improvement of pulse oximetry. Patient admitted to medical floor and initiated on pneumonia protocol as well as COVID-19 protocol. Patient also found to have acute kidney injury as well as elevated liver function test suspected secondary to alcohol dependence. Patient diagnosed with coronavirus at time of admission Nuclear on 07/01/2020discharge 24 breast you no-year-old just on the unit second manjula it is important the fluids insulin and monitor her from walkin05/17/2020; patient with severe COVID-19 pneumonia, in isolation room Patient is on high flow oxygen, and BiPAP 05/18/20; patient feels slightly better still hypoxic, requiring continuous high flow oxygen and BiPAP Respiratory team trying to wean 05/19/20; patient is severely hypoxemic requiring continuous BiPAP today, compla ins of generalized weakness Trying to wean off high flow oxygen, patient is in isolation 05/20/2020; patient remains on high flow oxygen/BiPAP/100% nonrebreather. Still is hypoxemic Has sinus tachycardia patient in mild distress Wean off high flow oxygen as tolerated, pulmonary critical following 05/21/20; patient is critically ill, on continuous BiPAP remains hypoxemic in mild distress Patient has severe Covid Pneumonia with persistent hypoxemia and poor prognosis 05/22/2020 Patient was intubated last night because of persistent hypoxemia 05/23/20 On Vent 05/24 to 06/14 On Vent Weaning in progress 06/16/2020. Patient currently on mechanical ventilation with AC mode rate 30, tidal volume 500, FiO2 70% and PEEP of 16. Continue anticoagulation with Lovenox 110 milligrams subcu every 12 hours. Wean sedation of fentanyl/Versed as needed. Currently with IV steroids of Solu-Medrol 40 mg IV every 12 hours. Patient will likely need tracheostomy per pulmonary recommendations. Continue pressors to maintain MAP > 65. 06/17/2020. Patient currently on mechanical ventilation with AC mode rate 30, tidal volume 500, FiO2 65% and PEEP of 16. Continue anticoagulation with Lovenox 110 milligrams subcu every 12 hours. Wean sedation of fentanyl/Versed as needed. Currently with IV steroids of Solu-Medrol 40 mg IV every 12 hours. Patient will likely need tracheostomy per pulmonary recommendations. 06/18/2020. Patient currently on mechanical ventilation with AC mode rate 30, tidal volume 500, FiO2 70% and PEEP of 16. Continue Lovenox for anticoagulation and fentanyl/Versed for sedation. Wean steroids per pulmonary. CIWA protocol initiated for history of EtOH dependence 06/19/2020. Patient currently on mechanical ventilation with AC mode rate 30, tidal volume 500, FiO2 60% and PEEP of 16. Wean FiO2 as tolerated per protocol. Continue Lovenox for anticoagulation and fentanyl/Versed for sedation. Wean steroids per pulmonary. CIWA protocol initiated for history of EtOH dependence 06/20/2020. Patient currently on mechanical ventilation with AC mode rate 30, tidal volume 500, FiO2 60% and PEEP of 16. Wean FiO2 as tolerated, SBT per prot ocol. Continue Lovenox for anticoagulation and fentanyl/Versed for sedation. Wean steroids per pulmonary. Continue pressors to maintain MAP > 65 mmHg. Patient remains on ETT. Consider tracheostomy placement once oxygenation is better per pulmonary. CIWA protocol initiated for history of EtOH dependence. 06/21/2020. Patient with a small apical pneumothorax discovered yesterday. General surgery consulted and consider placing chest tube. Follow-up serial chest x-ray patient currently on mechanical ventilation with AC mode rate 30, tidal volume 500, FiO2 60% and PEEP of 16. Wean FiO2 as tolerated, SBT per protocol. Continue Lovenox for anticoagulation and fentanyl/Versed for sedation. Wean steroids per pulmonary. Continue pressors to maintain MAP > 65 mmHg. Patient remains on ETT. Consider tracheostomy placement once oxygenation is better per pulmonary. CIWA protocol initiated for history of EtOH dependence. 06/22. Status post right chest tube placement yesterday. Remains mechanically ventilated on pressors. Examination today shows slightly distended abdomen. KUB ordered. Awaiting stool guaiac. Plan to get a GI evaluation. 12/16. Has colonic distention on the x-ray. Discussed with GI-advised stool softeners for now and close monitoring. No indication for colonic decompression at this time. Guaiac test is positive. No emergent indication for endoscopy at this point as per GI. Continue to monitor hemoglobin. 06/24. Remains intubated. On pressors. GI following for positive guaiac stool and anemia, and colonic distention. 06/25. Repeat abdominal xray ordered. Remains on mechanical ventilation. 06/26. Abdominal xray - resolved colonic distension. Mechanically ventilated. 06/27. Plan for trach and PEG. 06/28: Awaiting trach and Peg. S\ome Bm REPORTED, will continue to monitor 06/29: Resume care, patient remains on ventilator support, waiting on trach and PEG placement. BM reported by the RN, continue to monitor. 06/30: Unable to wean off from vent, patient will need trach and PEG. Continue supportive care, tolerating tube feed. Monitor CBC and BMP 07/01: Continue mechanical ventilation, tube feeding as tolerated. Sedation as needed per mechanical ventilation protocol. Waiting on trach and PEG placement. 07/02: Continue current management, tube feeding, monitor CBC and BMP. Need trach and PEG-waiting on scheduling. Pulmonary critical care following. 07/03: wean off vent as tolerated. follow clinically. need trach and PEG 07/04: unable to wean. CT head ordered to assess for any changes but too unstable to do the test. need trach and PEG. 07/05: plan for trach/peg - GS following. off pressor - on midodrine. renal function stable. intubated, but alert and can follow minor commend. discussed with daughter by phone. 07/06/2020; Dr. Márquez discussed with patient's daughter about trach but the daughter needs time to think about it. Patient was intubated and alert, FiO2 40%. 07/07/2020; patient was intubated and alert, FiO2 40%. Patient was diaphoretic, tachycardic, and EKG was done which was abnormal for me. I called vacuum cleaner operator Dr Louis saw the EKG and said it is normal EKG, and the findings are abnormal. 07/08/2020; no significant change, patient is intubated and alert. 1/2: Patient continues on current management. Pulmonary recommending trach and PEG awaiting patient's decision on this. Will check intermittent labs 07/11: Ordered CT still pending. Patient was agitated at night. Appears to have calmed down. Will repeat labs today. 07/12: Continue supportive care, awaiting CPAP trial. discussed with pulmonary. Obtain labs today. Trach and Peg planned 07/13: Continues to current management, PLAN FOR Trach and PEG on Sunday if patient is not able to liberated from the ventilator, Continue to monitor Fever curve and repeat Sepsis work up if persistent fever 07/14: Now extubated, continue to work up. 07/15: Clinical stable for transfer to [facility], still with fever and now showing bactermia. Continue Abx per ID. monitor fever 07/16: Continue supportive care. MONITOR FEVER CURVE, Adjust antibiotics as tolerated 07/17: Chest tube remains in place. More lethargic, Requested BIPAP to bedside, Chest tube to be discontinued, Awaiting Pysch input. 07/18: Chest tube remains in place repeat chest x-ray shows persistent bilateral opacity with mild improvement. Continue nebulizer treatments. Hypokalemia also noted will replace. Pulmonary and surgical input noted 07/19: Patient is a 50-year-old male admitted with shortness of breath ended up on mechanical ventilation noted to have pneumothorax has a chest tube in place. Has been successfully extubated but remains with delirium secondary to medical condition and also mild to moderate respiratory distress on Venturi mask. Continue weaning attempts. Patient still with chest tube. Continue serial x- rays. Will discuss with case management about possible LTAC placement. Blood cultures are currently returning Pseudomonas species. ID is following. 07/20/2020; patient continues to feel better, high flow oxygen and BiPAP Chest tube in place, continue current management, pulmonary surgery following 07/21/2020:Patient remains on High flow o2 07/22/2020; patient remains on high flow oxygen 8 L 100% O2 sat 93% Case management checking for LTAC placement 07/23/2020; patient remains on high flow oxygen, wean oxygen as tolerated, severe hypokalemia Replenish per protocol monitor levels 07/24/2020; patient had chest tube removal yesterday 07/23/2019 and, post removal chest x-ray no pneumothorax no acute abnormalities Patient feels slightly better continues to require high flow oxygen Wean as tolerated, physical and occupational therapy, DC planning 07/26/2020; patient on 3 L nasal cannula oxygen, patient feels better 07/27/2020; patient was saturating well on 3 L of nasal cannula oxygen, however today patient is on high flow oxygen 15 L Complains of some congestion, wean oxygen levels to 3-5 as tolerated Discharge planning LTAC has refused patient,Possible home with home health versus placement when medically stable 07/28/2020; continue to wean oxygen, patient is on 10 L, awaiting placement 07/29/2020; continues to be on 10 L nasal cannula oxygen, wean as tolerated Patient is on empiric therapeutic dose Lovenox, due to elevated D-dimers Patient is stable for CTA chest today, follow the report and adjust Lovenox as needed DC planning per case management, with pending placement 07/30/2020; patient feels slightly better, oxygen reduced to 8 L of nasal cannula Will check PT OT, pending placement 07/31/2020 Patient on 8 L of nasal cannula oxygen 08/01 Severe debility PT/OT 08/02/20 Severe debility PT/OT Objective - Constitutional Vitals: Vital Signs - 12hr 08/02/20 08/02/20 08/02/20 16:08 19:44 20:16 Temperature 98.3 F 99.3 F Pulse Rate 118 H 121 H 114 H Respiratory 18 Rate Blood Pressure 107/64 O2 Sat by Pulse 95 95 Oximetry 08/02/20 08/02/20 20:21 23:29 Temperature 99.2 F Pulse Rate 112 H Respiratory 18 Rate Blood Pressure 112/74 O2 Sat by Pulse 98 92 Oximetry General appearance: Present: no acute distress, well-nourished - EENT Eyes: PERRL, EOM intact ENT: hearing intact, clear oral mucosa Ears: bilateral: normal - Neck Neck: supple, normal ROM - Respiratory Respiratory effort: normal Respiratory: bilateral: CTA - Breasts Breasts: normal - Cardiovascular Heart rate: 78 Rhythm: regular Heart Sounds: Present: S1 & S2. Absent: gallop, rub Extremities: no ischemia, pulses intact, No edema, normal color, Full ROM - Gastrointestinal General gastrointestinal: Present: soft, non-tender, non-distended, normal bowel sounds - Genitourinary Male genitourinary: normal - Integumentary Integumentary: clear, warm, dry - Musculoskeletal Musculoskeletal: 1, strength equal bilaterally - Neurologic Neurologic: moves all extremities - Psychiatric Psychiatric: memory intact, appropriate mood/affect, intact judgment & insight - Allied health notes Allied health notes reviewed: nursing, case management - Labs CBC & Chem 7: 08/02/20 05:55 08/02/20 13:55 Labs: Abnormal lab results 08/02/20 08/02/20 08/02/20 Range/Units 05:55 05:55 08:19 WBC 12.4 H (4.5-11.0) K/mm3 MCV 99 H (84-94) fl RDW 16.9 H (13.2-15.2) % Garvin % (Auto) 9.7 H (0.0-7.3) % Garvin # (Auto) 1.2 H (0.0-0.8) K/mm3 Seg Neutrophils # 8.5 H (1.8-7.7) K/mm3 Potassium 2.9 L* (3.6-5.0) mmol/L Chloride 96.5 L (98-107) mmol/L Carbon Dioxide 39 H (22-30) mmol/L Creatinine 0.3 L (0.8-1.3) mg/dL Glucose 105 H (75-100) mg/dL POC Glucose 152 H (70-105) mg/dL ALT 118 H (7-56) units/L Albumin 3.3 L (3.9-5) g/dL 08/02/20 08/02/20 08/02/20 Range/Units 12:24 13:55 16:23 WBC (4.5-11.0) K/mm3 MCV (84-94) fl RDW (13.2-15.2) % Garvin % (Auto) (0.0-7.3) % Garvin # (Auto) (0.0-0.8) K/mm3 Seg Neutrophils # (1.8-7.7) K/mm3 Potassium 3.0 L (3.6-5.0) mmol/L Chloride (98-107) mmol/L Carbon Dioxide (22-30) mmol/L Creatinine (0.8-1.3) mg/dL Glucose (75-100) mg/dL POC Glucose 144 H 142 H (70-105) mg/dL ALT (7-56) units/L Albumin (3.9-5) g/dL 08/02/20 08/02/20 Range/Units 17:00 21:21 WBC (4.5-11.0) K/mm3 MCV (84-94) fl RDW (13.2-15.2) % Garvin % (Auto) (0.0-7.3) % Garvin # (Auto) (0.0-0.8) K/mm3 Seg Neutrophils # (1.8-7.7) K/mm3 Potassium (3.6-5.0) mmol/L Chloride (98-107) mmol/L Carbon Dioxide (22-30) mmol/L Creatinine (0.8-1.3) mg/dL Glucose (75-100) mg/dL POC Glucose 193 H 161 H (70-105) mg/dL ALT (7-56) units/L Albumin (3.9-5) g/dL HEART Score - HEART Score Troponin: Troponin T 0.015 ng/mL (0.00-0.029) 07/07/20 10:00
[2020-08-03 06:23] LABS: Blood Urea Nitrogen 14 mg/dL (9-20); Calcium 9.3 mg/dL (8.4-10.2); Hemolysis Index 23
[2020-08-03 06:24] LABS: BUN/Creatinine Ratio 35
[2020-08-03] MEDS: INSULIN LISPRO 100 UNIT/ML SUB-Q SCH ×4 (09:11→23:47)
[2020-08-03] MEDS: QUEtiapine 200 MG TAB PO SCH (09:52)
[2020-08-03] MEDS: PHENobarbital 32.4 MG TAB PO SCH ×2 (09:52→23:48)
[2020-08-03] MEDS: METOPROLOL TARTRATE 25 MG TAB PO SCH ×2 (09:52→23:48)
[2020-08-03] MEDS: predniSONE 10 MG TAB PO SCH (09:52)
[2020-08-03] MEDS: MIDODRINE 5 MG TAB PO SCH ×3 (09:52→16:42)
[2020-08-03] MEDS: LANSOPRAZOLE 30 MG SOLUTAB FEEDTUBE SCH (09:52)
[2020-08-03] MEDS: guaiFENesin ER 600 MG TAB PO SCH ×2 (09:52→23:51)
[2020-08-03] MEDS: FOLIC ACID 1 MG TAB PO SCH (09:58)
--- NOTE | 2020-08-03 10:44 | Progress Note ---
Assessment and Plan Assessment and plan: Positive COVID-19 test; 05/10/2020 Negative COVID-19 test; 06/30/2020 --Acute hypoxemic respiratory failure; on 8 L oxygen today Continue to wean the oxygen dose, supportive care Pulmonary following On 10 L nasal cannula oxygen --Pneumothorax status post right chest tube Chest tube removed 07/23/2020 Post removal chest x-ray no pneumothorax Patient is requiring 10 L nasal cannula oxygen Wean oxygen as tolerated --Severe hypokalemia; resolved Monitor electrolytes, treat as needed --Sinus tachycardia: Significantly improved HR 80s - 110, monitor --Severe COVID-19 bilateral pneumonia Coronavirus protocol: IV steroid therapy, completed remdesivir, isolation precautions, contact precautions, prone positioning while in bed, pulmonary toilet. ID following SARS CoV-2 IgG positive patient is NOT a candidate for convalescent plasma --Elevated D-dimers; Patient had CTA chest ; negative for PE, patient already had lower extremity venous Doppler which was negative for DVT We will discontinue empiric therapeutic Lovenox, and change to DVT prophylaxis dose 40 mg subcu daily --Pseudomonas bacteremia; ID following, completed cefepime Monitor off antibiotics --Severe sepsis/septic shock, monitor off pressors Completed cefepime, monitor off antibiotics -- Acute kidney injury (SEN) , likely vasomotor nephropathy Resolved, avoid nephrotoxins --Acute on chronic anemia Guaiac test positive, GI evaluated the patient Patient H&H is normal range now Hb 11.8 -- Elevated liver function tests; resolved LFTs within normal limits Probably secondary to alcoholic liver disease. --Colonic distention GI evaluated colonic distention resolved recommend stool softeners -- DVT prophylaxis On therapeutic Lovenox Closely monitor the patient and adjust management as needed Chest tube removed Patient on 10 L nasal cannula oxygen, wean as tolerated Elevated D-dimers, on empiric therapeutic Lovenox CTA chest negative for PE,LE DVT negative, therapeutic Lovenox DC'd Changed to prophylactic Lovenox Physical therapy, evaluation noted and appreciated, recommend LTAC versus subacute To home if possible 07/23/2020; patient remains on high flow oxygen, wean oxygen as tolerated, severe hypokalemia Replenish per protocol monitor levels 07/24/2020; patient had chest tube removal yesterday 07/23/2019 and, post removal chest x-ray no pneumothorax no acute abnormalities Patient feels slightly better continues to require high flow oxygen Wean as tolerated, physical and occupational therapy, DC planning 07/26/2020; patient on 3 L nasal cannula oxygen, patient feels better 07/27/2020; patient was saturating well on 3 L of nasal cannula oxygen, however today patient is on high flow oxygen 15 L Complains of some congestion, wean oxygen levels to 3-5 as tolerated Discharge planning LTAC has refused patient,Possible home with home health vers us placement when medically stable 07/28/2020; continue to wean oxygen, patient is on 10 L, awaiting placement 07/29/2020; continues to be on 10 L nasal cannula oxygen, wean as tolerated Patient is on empiric therapeutic dose Lovenox, due to elevated D-dimers Patient is stable for CTA chest today, follow the report and adjust Lovenox as needed DC planning per case management, with pending placement 07/30/2020; patient feels slightly better, oxygen reduced to 8 L of nasal cannula Will check PT OT, pending placement 07/31/2020 Patient on 8 L of nasal cannula oxygen 08/03/2020; patient's oxygen requirement has come down to 3-4 and half liters nasal cannula Will try to wean oxygen as tolerated, respiratory therapist assisting to reach the goal Possible discharge home in 1 to 2 days if stable Plan of care reviewed with the patient and his nurse History Interval history: I have seen and examined the patient at the bedside, patient's chart and medica tions reviewed Patient feels slightly better continues to require 3 to 4-1/2 L of nasal cannula oxygen Patient feels better no new complaints Vital signs noted Hospitalist Physical - Constitutional Vitals: Temp Pulse Resp BP Pulse Ox 99.1 F 125 H 20 119/88 94 08/03/20 09:16 08/03/20 09:16 08/03/20 09:16 08/03/20 09:16 08/03/20 09:16 General appearance: Present: no acute distress, well-nourished - EENT Eyes: Present: PERRL, EOM intact - Neck Neck: Present: supple, normal ROM - Respiratory Respiratory effort: normal Respiratory: bilateral: diminished, rhonchi, negative: rales, wheezing - Cardiovascular Rhythm: regular Heart Sounds: Present: S1 & S2 - Extremities Extremities: no ischemia, No edema - Abdominal General gastrointestinal: soft, non-tender, non-distended, normal bowel sounds - Integumentary Integumentary: Present: clear, warm - Psychiatric Psychiatric: appropriate mood/affect, cooperative - Neurologic Neurologic: CNII-XII intact, moves all extremities HEART Score - HEART Score Troponin: Troponin T 0.015 ng/mL (0.00-0.029) 07/07/20 10:00 Results - Labs CBC & Chem 7: 08/02/20 05:55 08/03/20 05:18 Labs: Laboratory Last Values WBC 12.4 K/mm3 (4.5-11.0) H 08/02/20 05:55 RBC 3.85 M/mm3 (3.65-5.03) 08/02/20 05:55 Hgb 12.3 gm/dl (11.8-15.2) 08/02/20 05:55 Hct 37.9 % (35.5-45.6) 08/02/20 05:55 MCV 99 fl (84-94) H 08/02/20 05:55 MCH 32 pg (28-32) 08/02/20 05:55 MCHC 33 % (32-34) 08/02/20 05:55 RDW 16.9 % (13.2-15.2) H 08/02/20 05:55 Plt Count 267 K/mm3 (140-440) 08/02/20 05:55 Lymph % (Auto) 18.3 % (13.4-35.0) 08/02/20 05:55 Lyman % (Auto) 9.7 % (0.0-7.3) H 08/02/20 05:55 Eos % (Auto) 3.3 % (0.0-4.3) 08/02/20 05:55 Baso % (Auto) 0.4 % (0.0-1.8) 08/02/20 05:55 Lymph # (Auto) 2.3 K/mm3 (1.2-5.4) 08/02/20 05:55 Lyman # (Auto) 1.2 K/mm3 (0.0-0.8) H 08/02/20 05:55 Eos # (Auto) 0.4 K/mm3 (0.0-0.4) 08/02/20 05:55 Baso # (Auto) 0.1 K/mm3 (0.0-0.1) 08/02/20 05:55 Add Manual Diff Complete 07/13/20 08:31 Total Counted 100 07/13/20 08:31 Seg Neutrophils % 68.3 % (40.0-70.0) 08/02/20 05:55 Seg Neuts % (Manual) 96.0 % (40.0-70.0) H 07/13/20 08:31 Band Neutrophils % 0 % 07/13/20 08:31 Lymphocytes % (Manual) 2.0 % (13.4-35.0) L 07/13/20 08:31 Reactive Lymphs % (Man) 0 % 07/13/20 08:31 Monocytes % (Manual) 2.0 % (0.0-7.3) 07/13/20 08:31 Eosinophils % (Manual) 0 % (0.0-4.3) 07/13/20 08:31 Basophils % (Manual) 0 % (0.0-1.8) 07/13/20 08:31 Metamyelocytes % 0 % 07/13/20 08:31 Myelocytes % 0 % 07/13/20 08:31 Promyelocytes % 0 % 07/13/20 08:31 Blast Cells % 0 % 07/13/20 08:31 Nucleated RBC % Not Reportable 07/13/20 08:31 Seg Neutrophils # 8.5 K/mm3 (1.8-7.7) H 08/02/20 05:55 Seg Neutrophils # Man 20.4 K/mm3 (1.8-7.7) H 07/13/20 08:31 Band Neutrophils # 0.0 K/mm3 07/13/20 08:31 Lymphocytes # (Manual) 0.4 K/mm3 (1.2-5.4) L 07/13/20 08:31 Abs React Lymphs (Man) 0.0 K/mm3 07/13/20 08:31 Monocytes # (Manual) 0.4 K/mm3 (0.0-0.8) 07/13/20 08:31 Eosinophils # (Manual) 0.0 K/mm3 (0.0-0.4) 07/13/20 08:31 Basophils # (Manual) 0.0 K/mm3 (0.0-0.1) 07/13/20 08:31 Metamyelocytes # 0.0 K/mm3 07/13/20 08:31 Myelocytes # 0.0 K/mm3 07/13/20 08:31 Promyelocytes # 0.0 K/mm3 07/13/20 08:31 Blast Cells # 0.0 K/mm3 07/13/20 08:31 WBC Morphology Not Reportable 07/13/20 08:31 Hypersegmented Neuts Not Reportable 07/13/20 08:31 Hyposegmented Neuts Not Reportable 07/13/20 08:31 Hypogranular Neuts Not Reportable 07/13/20 08:31 Smudge Cells Not Reportable 07/13/20 08:31 Toxic Granulation Not Reportable 07/13/20 08:31 Toxic Vacuolation Not Reportable 07/13/20 08:31 Dohle Bodies Not Reportable 07/13/20 08:31 Pelger-Huet Anomaly Not Reportable 07/13/20 08:31 Jason Rods Not Reportable 07/13/20 08:31 Platelet Estimate Consistent w auto 07/13/20 08:31 Clumped Platelets Not Reportable 07/13/20 08:31 Plt Clumps, EDTA Not Reportable 07/13/20 08:31 Large Platelets Not Reportable 07/13/20 08:31 Giant Platelets Not Reportable 07/13/20 08:31 Platelet Satelliting Not Reportable 07/13/20 08:31 Plt Morphology Comment Not Reportable 07/13/20 08:31 RBC Morphology Not Reportable 07/13/20 08:31 Dimorphic RBCs Not Reportable 07/13/20 08:31 Polychromasia Not Reportable 07/13/20 08:31 Hypochromasia Not Reportable 07/13/20 08:31 Poikilocytosis Not Reportable 07/13/20 08:31 Anisocytosis Not Reportable 07/13/20 08:31 Microcytosis Not Reportable 07/13/20 08:31 Macrocytosis Not Reportable 07/13/20 08:31 Spherocytes Not Reportable 07/13/20 08:31 Pappenheimer Bodies Not Reportable 07/13/20 08:31 Sickle Cells Not Reportable 07/13/20 08:31 Target Cells Not Reportable 07/13/20 08:31 Tear Drop Cells Not Reportable 07/13/20 08:31 Ovalocytes Not Reportable 07/13/20 08:31 Stomatocytes Few 07/13/20 08:31 Helmet Cells Not Reportable 07/13/20 08:31 Sinclair-T[place] Bodies Not Reportable 07/13/20 08:31 Patterson Rings Not Reportable 07/13/20 08:31 Camillus Cells Not Reportable 07/13/20 08:31 Bite Cells Not Reportable 07/13/20 08:31 Crenated Cell Not Reportable 07/13/20 08:31 Elliptocytes Not Reportable 07/13/20 08:31 Acanthocytes (Spur) Not Reportable 07/13/20 08:31 Rouleaux Not Reportable 07/13/20 08:31 Hemoglobin C Crystals Not Reportable 07/13/20 08:31 Schistocytes Not Reportable 07/13/20 08:31 Malaria parasites Not Reportable 07/13/20 08:31 Josue Bodies Not Reportable 07/13/20 08:31 Hem Pathologist Commnt No 07/13/20 08:31 PT 11.8 Sec. (12.2-14.9) L 06/22/20 14:29 INR 0.88 (0.87-1.13) 06/22/20 14:29 APTT 23.5 Sec. (24.2-36.6) L 06/22/20 14:29 D-Dimer 1887.82 ng/mlDDU (0-234) H 05/20/20 08:16 Heparin Anti-Xa Level 0.37 U.I./ml (0.3-0.7) 07/02/20 16:08 ABG pH 7.477 (7.320-7.450) H 07/13/20 13:52 POC ABG pCO2 54.4 mmHg (32.0-48.0) H 07/13/20 13:52 ABG pCO2 53.1 mm Hg 07/08/20 Unknown POC ABG pO2 126.8 mmHg (83-108) H 07/13/20 13:52 ABG pO2 75.3 mm Hg (80.0-90.0) L 07/08/20 Unknown POC ABG HCO3 39.3 07/13/20 13:52 ABG HCO3 34.3 mmol/L (20.0-26.0) H 07/08/20 Unknown ABG O2 Saturation 96.5 % (95.0-99.0) 07/08/20 Unknown ABG O2 Content 13.5 (0.0-44) 07/08/20 Unknown POC ABG Base Excess 13.8 07/13/20 13:52 ABG Base Excess 8.7 mmol/L (-2.0-3.0) H 07/08/20 Unknown ABG Hemoglobin 11.5 (12.0-17.5) L 07/13/20 13:52 ABG Oxyhemoglobin 97.7 (94-98) 07/13/20 13:52 ABG Carboxyhemoglobin 2.4 % (0.0-5.0) 07/08/20 Unknown ABG Methemoglobin 0 (0.0-1.5) 07/13/20 13:52 ABG Sodium 136.2 mmol/L (136.0-145.0) 07/13/20 13:52 ABG Potassium 3.2 mmol/L (3.40-4.50) L 07/13/20 13:52 ABG Chloride 92.0 mmol/L (98-107) L 07/13/20 13:52 ABG Glucose 169 mg/dL (65-95) H 07/13/20 13:52 Oxyhemoglobin 93.7 % (95.0-99.0) L 07/08/20 Unknown Carboxyhemoglobin 1.2 (0.5-1.5) 07/13/20 13:52 FiO2 45 07/13/20 13:52 Sodium 142 mmol/L (137-145) 08/03/20 05:18 Potassium 3.8 mmol/L (3.6-5.0) D 08/03/20 05:18 Chloride 100.0 mmol/L (98-107) 08/03/20 05:18 Carbon Dioxide 32 mmol/L (22-30) H D 08/03/20 05:18 Anion Gap 14 mmol/L 08/03/20 05:18 BUN 14 mg/dL (9-20) 08/03/20 05:18 Creatinine 0.4 mg/dL (0.8-1.3) L 08/03/20 05:18 Estimated GFR > 60 ml/min 08/03/20 05:18 BUN/Creatinine Ratio 35 % 08/03/20 05:18 Glucose 100 mg/dL (75-100) 08/03/20 05:18 POC Glucose 161 mg/dL (70-105) H 08/02/20 21:21 Lactic Acid 0.80 mmol/L (0.7-2.0) 07/13/20 15:45 Calcium 9.3 mg/dL (8.4-10.2) 08/03/20 05:18 Phosphorus 3.10 mg/dL (2.5-4.5) 06/15/20 04:00 Magnesium 2.00 mg/dL (1.7-2.3) 07/24/20 05:05 Ferritin 1496.0 ng/mL (30.0-300.0) H 06/14/20 11:50 Total Bilirubin 0.30 mg/dL (0.1-1.2) 08/02/20 05:55 Direct Bilirubin 0.6 mg/dL (0-0.2) H 05/11/20 07:30 Indirect Bilirubin 0.9 mg/dL 05/11/20 07:30 AST 37 units/L (5-40) 08/02/20 05:55 ALT 118 units/L (7-56) H 08/02/20 05:55 Alkaline Phosphatase 88 units/L (35-129) 08/02/20 05:55 Lactate Dehydrogenase 705 units/L (91-180) H 05/20/20 08:16 Troponin T 0.015 ng/mL (0.00-0.029) 07/07/20 10:00 C-Reactive Protein 3.10 mg/dL (0.00-1.30) H 05/20/20 08:16 Total Protein 6.4 g/dL (6.3-8.2) 08/02/20 05:55 Albumin 3.3 g/dL (3.9-5) L 08/02/20 05:55 Albumin/Globulin Ratio 1.1 % 08/02/20 05:55 Triglycerides 452 mg/dL (2-149) H 06/30/20 07:00 Lipase 86 units/L (13-60) H 06/29/20 09:36 Procalcitonin 2.15 ng/mL (<0.15) 07/15/20 05:31 Arterial Blood Glucose 169 mg/dL (65-95) H 07/13/20 13:52 Arterial Blood Ionized Calcium 4.8 mg/dL (4.6-5.3) 07/13/20 13:52 Urine Color Fauzia (Yellow) 05/10/20 Unknown Urine Turbidity Clear (Clear) 05/10/20 Unknown Urine pH 5.0 (5.0-7.0) 05/10/20 Unknown Ur Specific [place] 1.019 (1.003-1.030) 05/10/20 Unknown Urine Protein 100 mg/dl mg/dL (Negative) 05/10/20 Unknown Urine Glucose (UA) Neg mg/dL (Negative) 05/10/20 Unknown Urine Ketones Neg mg/dL (Negative) 05/10/20 Unknown Urine Blood Lg (Negative) 05/10/20 Unknown Urine Nitrite Neg (Negative) 05/10/20 Unknown Urine Bilirubin Neg (Negative) 05/10/20 Unknown Urine Urobilinogen 2.0 mg/dL (<2.0) 05/10/20 Unknown Ur Leukocyte Esterase Neg (Negative) 05/10/20 Unknown Urine WBC (Auto) 11.0 /HPF (0.0-6.0) H 05/10/20 Unknown Urine RBC (Auto) 2.0 /HPF (0.0-6.0) 05/10/20 Unknown U Epithel Cells (Auto) 1.0 /HPF (0-13.0) 05/10/20 Unknown Urine Bacteria (Auto) 1+ /HPF (Negative) 05/10/20 Unknown Urine Mucus Few /HPF 05/10/20 Unknown Plasma/Serum Alcohol < 0.01 % (0-0.07) 05/09/20 14:20 Coronavirus (PCR) Negative (Negative) 06/30/20 10:28 Hepatitis A Ab Total Nonreactive (Nonreactive) 07/09/20 Unknown Hep B Core Total Ab Nonreactive (Nonreactive) 07/09/20 Unknown Hepatitis C RNA Quant See scanned result 07/09/20 Unknown SARS-CoV-2 IgG Ab Reactive (NonReactive) A 05/11/20 07:30 Blood Type B POSITIVE 06/21/20 14:18 Antibody Screen Negative 06/21/20 14:18 Crossmatch See Detail 06/21/20 14:18 - Diagnostic Impressions Diagnostic Impressions: Echocardiogram 05/20/20 13:02 Transthoracic Echocardiogram Indication: CHF BP: 97/73 Conclusions *The study quality is technically very difficult and limited. *The left ventricular chamber size, wall thickness and systolic function are within normal limits. There are no wall motion abnormalities observed. Ejection fraction is normal. *The estimated ejection fraction is 60-65%. *The pericardium appears normal. Findings Procedure Info: The study quality is technically difficult. Left Ventricle: The left ventricular chamber size, wall thickness and systolic function are within normal limits. There are no wall motion abnormalities observed. Ejection fraction is normal. The estimated ejection fraction is 60-65%. Abnormal left ventricular diastolic filling is observed, consistent with impaired relaxation. Left Atrium: The left atrium is normal in size with no visual thrombus identified. Right Ventricle: The right ventricle is not well visualized. Right Atrium: The right atrium is not well visualized. Aortic Valve: The aortic valve is trileaflet. The leaflets are thin with normal excursion. There is no aortic stenosis or regurgitation present. Mitral Valve: The mitral valve appears normal in structure and function. Tricuspid Valve: The tricuspid valve appears normal in structure and function. Unable to estimate the right ventricular systolic pressure. Pulmonic Valve: The pulmonic valve is not well visualized. There is no evidence of pulmonic regurgitation. There is no pulmonic stenosis. Pericardium: The pericardium appears normal. Pulmonary Artery: The main pulmonary artery is not well visualized. Venous: The inferior vena cava appears normal in size. Measurements Chambers 2D Name Value Normal Range IVSd (2D) 0.83 cm (0.6 - 1.1) LVPWd (2D) 0.83 cm (0.6 - 1.1) LVIDd (2D) 3.88 cm (3.7 - 5.6) LVIDs (2D) 2.46 cm (2 - 3.8) LV FS (2D) 36.52 % - EF Teichholz (2D) 66.97 % - Ao root diameter (2D) 3.47 cm (2 - 3.7) Volumes/Mass Name Value Normal Range LA ESV SP 4CH (A/L) 22.4 ml - LA ESV SP 2CH (A/L) 22.89 ml - LA ESV BP (A/L) 23.06 ml - LA ESV SP 4CH (MOD) 21.09 ml - LA ESV SP 2CH (MOD) 22.44 ml - Diastolic/Systolic Function Name Value Normal Range MV E-wave Vmax 0.48 m/sec - MV deceleration time 156.3 msec - MV A-wave Vmax 0.59 m/sec - MV E:A ratio 0.81 ratio - Aortic Valve Name Value Normal Range AV Vmax 0.97 m/sec - AV VTI 14.49 cm - AV peak gradient 3.73 mmHg - AV mean gradient 1.89 mmHg - LVOT diameter 2.09 cm - LVOT Vmax 0.72 m/sec - LVOT VTI 10.21 cm - LVOT peak gradient 2.05 mmHg - LVOT mean gradient 1.03 mmHg - SV LVOT 35.17 ml - INNA (continuity Vmax) 2.55 cm2 - INNA (continuity VTI) 2.43 cm2 - Tricuspid Valve Name Value Normal Range TV E-wave Vmax 0.37 m/sec - Pulmonic Valve/Qp:Qs Name Value Normal Range PV Vmax 0.72 m/sec - PV peak gradient 2.06 mmHg - RVOT Vmax 0.85 m/sec - RVOT VTI 9.89 cm - RVOT peak gradient 2.9 mmHg - PV acceleration time 72.31 msec - Cantor/IV: Voiding Method Toilet IV Catheter Type [Right Wrist] INT / Saline Lock IV Catheter Type [Right Upper Peripheral IV arm] IV Catheter Type [Right CVL Internal Jugular] IV Catheter Type [Right Peripheral IV Forearm] IV Catheter Type [Left Forearm INT / Saline Lock ] IV Catheter Type [Left Wrist] INT / Saline Lock IV Catheter Type [Right Hand] INT / Saline Lock IV Catheter Type [Left Hand] INT / Saline Lock IV Catheter Type [Left Peripheral IV Antecubital] Active Medications - Current Medications Current Medications: Generic Name Dose Route Start Last Admin Trade Name Freq PRN Reason Stop Dose Admin Alprazolam 0.25 mg 05/20/20 17:53 07/26/20 09:37 Alprazolam 0.25 Mg Tab PO 0.25 mg Q8H PRN Administration Anxiety Lipase/Protease/Amylase 1 each 05/22/20 13:01 Lipase 10,500/Protease 25,000/Amylase 43,750 (Units) Dr Newell FEEDTUBE PRN PRN For Clogged Feeding Tube Bisacodyl 10 mg 07/14/20 11:00 Bisacodyl 10 Mg Rect Supp OK BID PRN Laxative Effect Enoxaparin Sodium 40 mg 07/29/20 22:00 08/02/20 22:05 Enoxaparin 40 Mg/0.4 Ml Inj SUB-Q 40 mg QDAY@2200 DESIRE Administration Protocol Folic Acid 1 mg 05/09/20 15:36 08/03/20 09:58 Folic Acid 1 Mg Tab PO 1 mg QDAY DESIRE Administration Guaifenesin 600 mg 07/19/20 23:00 08/03/20 09:52 Guaifenesin Er 600 Mg Tab PO 600 mg BID DESIRE Administration Hydrophilic Ointment 1 applic 05/21/20 20:33 Lip Therapy Vaseline TP Q2HR PRN Dry Lips Insulin Human Lispro 0 unit 07/31/20 07:30 08/03/20 09:11 Insulin Lispro 100 Unit/Ml SUB-Q Not Given ACHS [facility] Protocol Lansoprazole 30 mg 06/28/20 10:00 08/03/20 09:52 Lansoprazole 30 Mg Solutab FEEDTUBE 30 mg QDAY DESIRE Administration Lorazepam 1 mg 07/04/20 01:10 07/18/20 11:57 Lorazepam 2 Mg/Ml Vial IV 1 mg Q1HR PRN Administration agitation Metoprolol Tartrate 5 mg 07/02/20 17:17 07/08/20 14:38 Metoprolol Tartrate 5 Mg/5 Ml Inj IV 5 mg Q6HR PRN Administration Tachyarrhythmias Metoprolol Tartrate 12.5 mg 07/17/20 12:00 08/03/20 09:52 Metoprolol Tartrate 25 Mg Tab PO 12.5 mg BID DESIRE Administration Midodrine 10 mg 06/30/20 16:00 08/03/20 09:52 Midodrine 5 Mg Tab PO 10 mg TID@0800,1200,1600 [facility] Administration Multi-Ingred Cream/Lotion/Oil/Oint 1 applic 05/21/20 20:33 Mineral Oil/Petrolatum, White Ophth Oint 3.5 Gm OU Q4HR PRN Dry Eye(s) Olanzapine 5 mg 07/17/20 22:00 08/02/20 22:06 Olanzapine 5 Mg Tab PO 5 mg QHS DESIRE Administration Phenobarbital 32.4 mg 07/04/20 22:00 08/03/20 09:52 Phenobarbital 32.4 Mg Tab PO 32.4 mg BID DESIRE Administration Prednisone 5 mg 08/04/20 10:00 Prednisone 5 Mg Tab PO 08/06/20 10:01 QDAY DESIRE Prednisone 2.5 mg 08/07/20 10:00 Prednisone 5 Mg Tab PO 08/09/20 10:01 QDAY DESIRE Quetiapine Fumarate 200 mg 07/16/20 10:00 08/03/20 09:52 Quetiapine 200 Mg Tab PO 200 mg QAM DESIRE Administration Senna 17.2 mg 07/14/20 11:00 Sennosides 8.6 Mg Tab PO BID PRN Laxative Effect Nutrition/Malnutrition Assess - Dietary Evaluation Nutrition/Malnutrition Findings: Nutrition Notes Start: 05/17/20 14:10 Freq: Status: Active Protocol: Document 07/30/20 11:53 CECY (Rec: 07/30/20 12:11 CECY [id number]) Co-Sign 07/30/20 11:53 LP Nutrition Notes Need for Assessment generated from: Education Initial or Follow up Reassessment Current Diagnosis Acute Kidney Injury,Decubitus( Pressure Ulcer),Sepsis, Respiratory Failure Other Pertinent Diagnosis Bilat pneu, COVID-19 (+), EtOH dependence Current Diet Regular diet Labs/Tests No new labs POC 94 Pertinent Medications Solu-Medrol Folvite Height 6 ft Weight 97.1 kg Usual Body Weight 118 kg [place] Body Weight (kg) 80.90 BMI 29.0 Weight change and time frame Wt change noted. Today's wt 97 .1 kg represents an unintentional wt loss of 10% since adm (>1 month). Pt reported noticeable wt changes . Weight Status Overweight Subjective/Other Information F/u intakes. Per pt, he has been eating all of his meals, including protein foods. Gave verbal education and encouragement for protein intake due to pressure ulcer and for muscle mass strength. Agreed to Sammy BID. Percent of energy/protein needs met: 100%/100% Burn Absent Trauma Absent GI Symptoms None Current % PO Good (75-100%) Minimum of two criteria Yes Interpretation of Weight Loss (severe) >5% in 1 month Muscle Mass Mild Depletion (non-severe) #4 Nutrition Diagnosis Food and nutrition-related knowledge deficit Etiology pt previously unaware of increased nutrient needs of protein As Evidenced by Signs and Symptoms pt verbalized he was not aware of increased needs for protein. #3 Nutrition Diagnosis Malnutrition Etiology acute illness As Evidenced by Signs and Symptoms unintentional wt loss of 10% in 1 month and temples are hallowed in appearance #2 Nutrition Diagnosis Increased nutrient needs ( specify in comment below) As Evidenced by Signs and Symptoms chart indicates stage 4 sacrum pressure ulcer Diagnosis Progress(for reassessment Continues documentation) #1 Nutrition Diagnosis Inadequate oral intake As Evidenced by Signs and Symptoms pt reported eating 100% of meals Diagnosis Progress(for reassessment Resolved documentation) Is patient on ventilator? No Is Patient Ambulatory and/or Out of Bed No REE-([place]-St. Jeor-confined to bed) 2240.532 Kcal/Kg value to use for calculation 21 Approximate Energy Requirements Using 9 kcal/Kg Calculation Used for Recommendations Kcal/kg Additional Notes Protein: 106-134 g (1.2-1.5 g/ kg AdBW 89 kg) Fluid: 1ml/kcal Nutrition Intervention Change Diet Order: Continue diet Add Supplement/Snack (indicate name/kcal Ensure High Protein daily /protein ) Sammy BID Provides kCal: 350 Provides Protein (gm) 21 Teaching Recipient Patient Learning Readiness Good Teaching Methods Discussion,Handout Response to Teaching Verbalize understanding Education Handouts Provided Sammy handout Barriers to Learning No Barriers RD phone number provided Yes Patient aware of follow up options Yes Goal #1 Meet at least 75% protein and energy needs via PO Goal #2 ONS tolerance Goal #3 Intake of Sammy BID Anticipated Discharge Needs: Regular, healthful diet and Sammy BID and increased protein intake until pressure ulcer is healed. Follow-Up By: 08/04/20 Additional Comments F/u intakes, ONS and Sammy tolerance/intake
--- NOTE | 2020-08-03 22:46 | Progress Note ---
Assessment and Plan Patient sleeping at this time on 4 litres high flow O2 and O2 saturation running 96%. No acute respiratory distress. Patient afebrile and has no leukocytosis. Patients D dimer 1887. 82. Ferritin 1496. LDH 705. C reactive protein 3.1 Chest xray 05/17/20 reported Persistent diffuse patchy bilateral airspace disease. Apparent interval worsening Repeat chest xray 07/19/20 reported Bilateral pulmonary opacities persist. No pneumothorax. Patient finished course of REMDESIVIR, ceftrioxane and zithromax . Chest xray done to day 07/21/20 reported Stable diffuse mild airspace disease bilaterally. Patient finished course of cefepime. Patient has CTA of chest reported No PE. reported extensive bilateral pulmonary infiltrates. Patient is on PO prednisone ,and S/C Lovenox and Prevacid. - Patient Problems (1) Acute respiratory failure due to COVID-19 Current Visit: Yes Status: Acute Plan to address problem: Patient presently resting 4 litres o2. o2 saturation 96%. Continue PO Prednisone. Convert aerosol treatments to metered dose inhalers Continue S/C Lovenox. Continue prevacid. Patient finished course of REMDESIVIR, Ceftrioxana and zithromax and cefepime. (2) Bilateral pneumonia Current Visit: Yes Status: Acute Plan to address problem: Patient was on cefetrioxane, zithromax and cefepime. (3) Acute kidney injury (SEN) with acute tubular necrosis (ATN) Current Visit: Yes Status: Acute Plan to address problem: Management as per nephrology. (4) Alcohol dependence Current Visit: Yes Status: Acute Qualifiers: Substance use status: uncomplicated Qualified Code(s): F10.20 - Alcohol dependence, uncomplicated Plan to address problem: Management as per primary care. (5) Elevated liver function tests Current Visit: Yes Status: Acute Plan to address problem: Liver enzymes elevated either from his alcoholic abuse or from COVID 19 infection. Subjective Date of service: 08/03/20 Principal diagnosis: Ac hypoxemic resp failure; COVID-19; Severe Sepsis; Shaggy PNA; Alcohol Abuse Interval history: Patient sleeping at this time on 4 litres high flow O2 and O2 saturation running 96%. No acute respiratory distress. Patient afebrile and has no leukocytosis. Patients D dimer 1887. 82. Ferritin 1496. LDH 705. C reactive protein 3.1 Chest xray 05/17/20 reported Persistent diffuse patchy bilateral airspace disease. Apparent interval worsening Repeat chest xray 07/19/20 reported Bilateral pulmonary opacities persist. No pneumothorax. Patient finished course of REMDESIVIR, ceftrioxane and zithromax . Chest xray done to day 07/21/20 reported Stable diffuse mild airspace disease bilaterally. Patient finished course of cefepime. Patient has CTA of chest reported No PE. reported extensive bilateral pulmonary infiltrates. Patient is on PO prednisone ,and S/C Lovenox and Prevacid. Objective Vital Signs - 12hr 08/03/20 08/03/20 08/03/20 12:27 17:34 19:38 Temperature 98.3 F 98.3 F 99.0 F Pulse Rate 125 H 115 H 118 H Respiratory 20 18 Rate Blood Pressure 123/78 118/78 116/65 O2 Sat by Pulse 94 96 97 Oximetry 08/03/20 20:35 Temperature Pulse Rate Respiratory Rate Blood Pressure O2 Sat by Pulse 96 Oximetry Constitutional: no acute distress, asleep Eyes: non-icteric ENT: oropharynx moist, other (extubated) Neck: supple, no JVD Effort: mildly labored Ascultation: Bilateral: diminished breath sounds, rhonchi (scant bases), other (r. chest tube) Percussion: Bilateral: not dull Cardiovascular: regular rate and rhythm, other (No R/M) Gastrointestinal: normoactive bowel sounds, soft, non-tender, non-distended (protuberant) Integumentary: normal Extremities: no cyanosis, no edema, pulses normal, no ischemia or petechiae Neurologic: non-focal exam (non focal grossly; weak), pupils equal and round, CN II-XII normal, motor strength normal and (weak ) Psychiatric: mood appropriate, affect normal CBC and BMP: 08/02/20 05:55 08/03/20 05:18 ABG, PT/INR, D-dimer: ABG ABG pH 7.477 (7.320-7.450) H 07/13/20 13:52 POC ABG pCO2 54.4 mmHg (32.0-48.0) H 07/13/20 13:52 ABG pCO2 53.1 mm Hg 07/08/20 Unknown POC ABG pO2 126.8 mmHg (83-108) H 07/13/20 13:52 ABG pO2 75.3 mm Hg (80.0-90.0) L 07/08/20 Unknown POC ABG HCO3 39.3 07/13/20 13:52 ABG O2 Saturation 96.5 % (95.0-99.0) 07/08/20 Unknown PT/INR, D-dimer PT 11.8 Sec. (12.2-14.9) L 06/22/20 14:29 INR 0.88 (0.87-1.13) 06/22/20 14:29 D-Dimer 1887.82 ng/mlDDU (0-234) H 05/20/20 08:16 Abnormal lab findings: Abnormal Labs 05/09/20 05/09/20 05/09/20 12:59 12:59 12:59 WBC 11.8 H RBC Hgb Hct MCV 96 H MCH 34 H MCHC 35 H RDW Lymph % (Auto) 6.9 L Armstrong % (Auto) Lymph # (Auto) 0.8 L Armstrong # (Auto) Baso # (Auto) Seg Neutrophils % 87.5 H Seg Neuts % (Manual) Lymphocytes % (Manual) Nucleated RBC % Seg Neutrophils # 10.3 H Seg Neutrophils # Man Lymphocytes # (Manual) Monocytes # (Manual) Eosinophils # (Manual) PT INR APTT D-Dimer Heparin Anti-Xa Level ABG pH POC ABG pCO2 POC ABG pO2 ABG pO2 ABG HCO3 ABG O2 Saturation ABG Base Excess ABG Hemoglobin ABG Oxyhemoglobin ABG Sodium ABG Potassium ABG Chloride ABG Glucose Oxyhemoglobin Carboxyhemoglobin Sodium 130 L Potassium 3.5 L Chloride 86.4 L Carbon Dioxide BUN 33 H Creatinine 2.3 H Glucose 156 H POC Glucose Lactic Acid Calcium Magnesium Ferritin Total Bilirubin 3.40 H Direct Bilirubin 1.7 H AST 385 H ALT 134 H Alkaline Phosphatase Lactate Dehydrogenase C-Reactive Protein Total Protein Albumin 3.0 L Triglycerides Lipase Arterial Blood Glucose Arterial Blood Ionized Calcium Urine WBC (Auto) Coronavirus (PCR) SARS-CoV-2 IgG Ab Crossmatch 05/09/20 05/09/20 05/09/20 12:59 12:59 12:59 WBC RBC Hgb Hct MCV MCH MCHC RDW Lymph % (Auto) Armstrong % (Auto) Lymph # (Auto) Armstrong # (Auto) Baso # (Auto) Seg Neutrophils % Seg Neuts % (Manual) Lymphocytes % (Manual) Nucleated RBC % Seg Neutrophils # Seg Neutrophils # Man Lymphocytes # (Manual) Monocytes # (Manual) Eosinophils # (Manual) PT INR APTT D-Dimer 3242.51 H Heparin Anti-Xa Level ABG pH POC ABG pCO2 POC ABG pO2 ABG pO2 ABG HCO3 ABG O2 Saturation ABG Base Excess ABG Hemoglobin ABG Oxyhemoglobin ABG Sodium ABG Potassium ABG Chloride ABG Glucose Oxyhemoglobin Carboxyhemoglobin Sodium Potassium Chloride Carbon Dioxide BUN Creatinine Glucose 158 H POC Glucose Lactic Acid 3.50 H* Calcium Magnesium Ferritin Total Bilirubin Direct Bilirubin AST ALT Alkaline Phosphatase Lactate Dehydrogenase 2166 H C-Reactive Protein 39.00 H Total Protein Albumin Triglycerides Lipase Arterial Blood Glucose Arterial Blood Ionized Calcium Urine WBC (Auto) Coronavirus (PCR) SARS-CoV-2 IgG Ab Crossmatch 05/09/20 05/09/20 05/09/20 12:59 14:20 14:20 WBC RBC Hgb Hct MCV MCH MCHC RDW Lymph % (Auto) Armstrong % (Auto) Lymph # (Auto) Armstrong # (Auto) Baso # (Auto) Seg Neutrophils % Seg Neuts % (Manual) Lymphocytes % (Manual) Nucleated RBC % Seg Neutrophils # Seg Neutrophils # Man Lymphocytes # (Manual) Monocytes # (Manual) Eosinophils # (Manual) PT INR APTT D-Dimer 2861.78 H Heparin Anti-Xa Level ABG pH POC ABG pCO2 POC ABG pO2 ABG pO2 ABG HCO3 ABG O2 Saturation ABG Base Excess ABG Hemoglobin ABG Oxyhemoglobin ABG Sodium ABG Potassium ABG Chloride ABG Glucose Oxyhemoglobin Carboxyhemoglobin Sodium Potassium Chloride Carbon Dioxide BUN Creatinine Glucose POC Glucose Lactic Acid 2.20 H* Calcium Magnesium Ferritin 37677.0 H Total Bilirubin Direct Bilirubin AST ALT Alkaline Phosphatase Lactate Dehydrogenase C-Reactive Protein Total Protein Albumin Triglycerides Lipase Arterial Blood Glucose Arterial Blood Ionized Calcium Urine WBC (Auto) Coronavirus (PCR) SARS-CoV-2 IgG Ab Crossmatch 05/09/20 05/09/20 05/09/20 14:20 14:20 15:56 WBC RBC Hgb Hct MCV MCH MCHC RDW Lymph % (Auto) Armstrong % (Auto) Lymph # (Auto) Armstrong # (Auto) Baso # (Auto) Seg Neutrophils % Seg Neuts % (Manual) Lymphocytes % (Manual) Nucleated RBC % Seg Neutrophils # Seg Neutrophils # Man Lymphocytes # (Manual) Monocytes # (Manual) Eosinophils # (Manual) PT INR APTT D-Dimer Heparin Anti-Xa Level ABG pH POC ABG pCO2 POC ABG pO2 57.3 L ABG pO2 ABG HCO3 ABG O2 Saturation ABG Base Excess ABG Hemoglobin ABG Oxyhemoglobin 86.3 L ABG Sodium 129.9 L ABG Potassium ABG Chloride ABG Glucose 146 H Oxyhemoglobin Carboxyhemoglobin Sodium Potassium Chloride Carbon Dioxide BUN Creatinine Glucose 143 H POC Glucose Lactic Acid Calcium Magnesium Ferritin 79237.0 H Total Bilirubin Direct Bilirubin AST ALT Alkaline Phosphatase Lactate Dehydrogenase 1953 H C-Reactive Protein 33.50 H Total Protein Albumin Triglycerides Lipase Arterial Blood Glucose 146 H Arterial Blood Ionized Calcium 3.9 L Urine WBC (Auto) Coronavirus (PCR) SARS-CoV-2 IgG Ab Crossmatch 05/10/20 05/10/20 05/10/20 10:32 10:32 18:50 WBC 15.4 H RBC Hgb Hct MCV 97 H MCH 33 H MCHC RDW 13.1 L Lymph % (Auto) Armstrong % (Auto) Lymph # (Auto) Armstrong # (Auto) Baso # (Auto) Seg Neutrophils % Seg Neuts % (Manual) 89.0 H Lymphocytes % (Manual) 8.0 L Nucleated RBC % Seg Neutrophils # Seg Neutrophils # Man 13.7 H Lymphocytes # (Manual) Monocytes # (Manual) Eosinophils # (Manual) PT INR APTT D-Dimer Heparin Anti-Xa Level ABG pH POC ABG pCO2 POC ABG pO2 ABG pO2 ABG HCO3 ABG O2 Saturation ABG Base Excess ABG Hemoglobin ABG Oxyhemoglobin ABG Sodium ABG Potassium ABG Chloride ABG Glucose Oxyhemoglobin Carboxyhemoglobin Sodium 136 L Potassium Chloride 97.4 L Carbon Dioxide BUN 37 H Creatinine 1.7 H Glucose 209 H POC Glucose Lactic Acid Calcium Magnesium Ferritin > 2000.0 H Total Bilirubin Direct Bilirubin AST ALT Alkaline Phosphatase Lactate Dehydrogenase C-Reactive Protein Total Protein Albumin Triglycerides Lipase Arterial Blood Glucose Arterial Blood Ionized Calcium Urine WBC (Auto) Coronavirus (PCR) SARS-CoV-2 IgG Ab Crossmatch 05/10/20 05/10/20 05/10/20 18:50 19:00 Unknown WBC RBC Hgb Hct MCV MCH MCHC RDW Lymph % (Auto) Armstrong % (Auto) Lymph # (Auto) Armstrong # (Auto) Baso # (Auto) Seg Neutrophils % Seg Neuts % (Manual) Lymphocytes % (Manual) Nucleated RBC % Seg Neutrophils # Seg Neutrophils # Man Lymphocytes # (Manual) Monocytes # (Manual) Eosinophils # (Manual) PT INR APTT D-Dimer > 48021 H Heparin Anti-Xa Level ABG pH POC ABG pCO2 POC ABG pO2 ABG pO2 ABG HCO3 ABG O2 Saturation ABG Base Excess ABG Hemoglobin ABG Oxyhemoglobin ABG Sodium ABG Potassium ABG Chloride ABG Glucose Oxyhemoglobin Carboxyhemoglobin Sodium Potassium Chloride Carbon Dioxide BUN Creatinine Glucose POC Glucose Lactic Acid Calcium Magnesium Ferritin Total Bilirubin Direct Bilirubin AST ALT Alkaline Phosphatase Lactate Dehydrogenase 1879 H C-Reactive Protein 24.80 H Total Protein Albumin Triglycerides Lipase Arterial Blood Glucose Arterial Blood Ionized Calcium Urine WBC (Auto) 11.0 H Coronavirus (PCR) SARS-CoV-2 IgG Ab Crossmatch 05/10/20 05/11/20 05/11/20 Unknown 07:30 07:30 WBC RBC Hgb Hct MCV MCH MCHC RDW Lymph % (Auto) Armstrong % (Auto) Lymph # (Auto) Armstrong # (Auto) Baso # (Auto) Seg Neutrophils % Seg Neuts % (Manual) Lymphocytes % (Manual) Nucleated RBC % Seg Neutrophils # Seg Neutrophils # Man Lymphocytes # (Manual) Monocytes # (Manual) Eosinophils # (Manual) PT INR APTT D-Dimer > 2000 H Heparin Anti-Xa Level ABG pH POC ABG pCO2 POC ABG pO2 ABG pO2 ABG HCO3 ABG O2 Saturation ABG Base Excess ABG Hemoglobin ABG Oxyhemoglobin ABG Sodium ABG Potassium ABG Chloride ABG Glucose Oxyhemoglobin Carboxyhemoglobin Sodium Potassium Chloride 96.3 L Carbon Dioxide BUN 36 H Creatinine Glucose 161 H POC Glucose Lactic Acid Calcium 8.3 L Magnesium Ferritin Total Bilirubin 1.50 H Direct Bilirubin 0.6 H AST 178 H ALT 111 H Alkaline Phosphatase Lactate Dehydrogenase C-Reactive Protein Total Protein Albumin 3.0 L Triglycerides Lipase Arterial Blood Glucose Arterial Blood Ionized Calcium Urine WBC (Auto) Coronavirus (PCR) Positive A SARS-CoV-2 IgG Ab Crossmatch 05/11/20 05/11/20 05/11/20 07:30 07:30 07:30 WBC RBC Hgb Hct MCV MCH MCHC RDW Lymph % (Auto) Armstrong % (Auto) Lymph # (Auto) Armstrong # (Auto) Baso # (Auto) Seg Neutrophils % Seg Neuts % (Manual) Lymphocytes % (Manual) Nucleated RBC % Seg Neutrophils # Seg Neutrophils # Man Lymphocytes # (Manual) Monocytes # (Manual) Eosinophils # (Manual) PT INR APTT D-Dimer Heparin Anti-Xa Level ABG pH POC ABG pCO2 POC ABG pO2 ABG pO2 ABG HCO3 ABG O2 Saturation ABG Base Excess ABG Hemoglobin ABG Oxyhemoglobin ABG Sodium ABG Potassium ABG Chloride ABG Glucose Oxyhemoglobin Carboxyhemoglobin Sodium Potassium Chloride Carbon Dioxide BUN Creatinine Glucose POC Glucose Lactic Acid Calcium Magnesium Ferritin 52002.0 H Total Bilirubin Direct Bilirubin AST ALT Alkaline Phosphatase Lactate Dehydrogenase 1523 H C-Reactive Protein 12.90 H Total Protein Albumin Triglycerides Lipase Arterial Blood Glucose Arterial Blood Ionized Calcium Urine WBC (Auto) Coronavirus (PCR) SARS-CoV-2 IgG Ab Reactive A Crossmatch 05/13/20 05/13/20 05/15/20 05:20 05:20 08:15 WBC RBC Hgb Hct MCV MCH MCHC RDW Lymph % (Auto) Armstrong % (Auto) Lymph # (Auto) Armstrong # (Auto) Baso # (Auto) Seg Neutrophils % Seg Neuts % (Manual) Lymphocytes % (Manual) Nucleated RBC % Seg Neutrophils # Seg Neutrophils # Man Lymphocytes # (Manual) Monocytes # (Manual) Eosinophils # (Manual) PT INR APTT D-Dimer > 09966 H 5318.28 H Heparin Anti-Xa Level ABG pH POC ABG pCO2 POC ABG pO2 ABG pO2 ABG HCO3 ABG O2 Saturation ABG Base Excess ABG Hemoglobin ABG Oxyhemoglobin ABG Sodium ABG Potassium ABG Chloride ABG Glucose Oxyhemoglobin Carboxyhemoglobin Sodium Potassium Chloride Carbon Dioxide 32 H BUN 30 H Creatinine Glucose 156 H POC Glucose Lactic Acid Calcium Magnesium 2.60 H Ferritin Total Bilirubin 1.40 H Direct Bilirubin AST 121 H ALT 119 H Alkaline Phosphatase Lactate Dehydrogenase 957 H C-Reactive Protein 4.00 H Total Protein Albumin 3.0 L Triglycerides Lipase Arterial Blood Glucose Arterial Blood Ionized Calcium Urine WBC (Auto) Coronavirus (PCR) SARS-CoV-2 IgG Ab Crossmatch 05/15/20 05/15/20 05/15/20 08:15 08:15 08:15 WBC 12.4 H RBC Hgb Hct MCV 98 H MCH 33 H MCHC RDW Lymph % (Auto) 9.7 L Armstrong % (Auto) Lymph # (Auto) Armstrong # (Auto) Baso # (Auto) Seg Neutrophils % 86.8 H Seg Neuts % (Manual) Lymphocytes % (Manual) Nucleated RBC % Seg Neutrophils # 10.8 H Seg Neutrophils # Man Lymphocytes # (Manual) Monocytes # (Manual) Eosinophils # (Manual) PT INR APTT D-Dimer Heparin Anti-Xa Level ABG pH POC ABG pCO2 POC ABG pO2 ABG pO2 ABG HCO3 ABG O2 Saturation ABG Base Excess ABG Hemoglobin ABG Oxyhemoglobin ABG Sodium ABG Potassium ABG Chloride ABG Glucose Oxyhemoglobin Carboxyhemoglobin Sodium Potassium Chloride 94.8 L Carbon Dioxide 32 H BUN 22 H Creatinine Glucose 115 H POC Glucose Lactic Acid Calcium 8.3 L Magnesium Ferritin 2494.0 H Total Bilirubin Direct Bilirubin AST 73 H ALT 121 H Alkaline Phosphatase Lactate Dehydrogenase 835 H C-Reactive Protein 3.40 H Total Protein 6.1 L Albumin 3.0 L Triglycerides Lipase Arterial Blood Glucose Arterial Blood Ionized Calcium Urine WBC (Auto) Coronavirus (PCR) SARS-CoV-2 IgG Ab Crossmatch 05/17/20 05/17/20 05/17/20 05:50 05:50 05:50 WBC RBC Hgb Hct MCV MCH MCHC RDW Lymph % (Auto) Armstrong % (Auto) Lymph # (Auto) Armstrong # (Auto) Baso # (Auto) Seg Neutrophils % Seg Neuts % (Manual) Lymphocytes % (Manual) Nucleated RBC % Seg Neutrophils # Seg Neutrophils # Man Lymphocytes # (Manual) Monocytes # (Manual) Eosinophils # (Manual) PT INR APTT D-Dimer 2911.42 H Heparin Anti-Xa Level ABG pH POC ABG pCO2 POC ABG pO2 ABG pO2 ABG HCO3 ABG O2 Saturation ABG Base Excess ABG Hemoglobin ABG Oxyhemoglobin ABG Sodium ABG Potassium ABG Chloride ABG Glucose Oxyhemoglobin Carboxyhemoglobin Sodium 136 L Potassium Chloride 96.0 L Carbon Dioxide 34 H BUN 22 H Creatinine Glucose 140 H POC Glucose Lactic Acid Calcium Magnesium Ferritin 2082.0 H Total Bilirubin Direct Bilirubin AST ALT 75 H Alkaline Phosphatase Lactate Dehydrogenase 601 H C-Reactive Protein 2.70 H Total Protein Albumin 2.9 L Triglycerides Lipase Arterial Blood Glucose Arterial Blood Ionized Calcium Urine WBC (Auto) Coronavirus (PCR) SARS-CoV-2 IgG Ab Crossmatch 05/17/20 05/18/20 05/20/20 05:50 12:22 08:16 WBC RBC Hgb Hct MCV 98 H MCH 33 H MCHC RDW Lymph % (Auto) 8.0 L Armstrong % (Auto) Lymph # (Auto) 0.8 L Armstrong # (Auto) Baso # (Auto) Seg Neutrophils % 89.3 H Seg Neuts % (Manual) Lymphocytes % (Manual) Nucleated RBC % Seg Neutrophils # 8.8 H Seg Neutrophils # Man Lymphocytes # (Manual) Monocytes # (Manual) Eosinophils # (Manual) PT INR APTT D-Dimer 1887.82 H Heparin Anti-Xa Level ABG pH POC ABG pCO2 POC ABG pO2 ABG pO2 ABG HCO3 ABG O2 Saturation ABG Base Excess ABG Hemoglobin ABG Oxyhemoglobin ABG Sodium ABG Potassium ABG Chloride ABG Glucose Oxyhemoglobin Carboxyhemoglobin Sodium Potassium Chloride Carbon Dioxide BUN Creatinine Glucose POC Glucose 178 H Lactic Acid Calcium Magnesium Ferritin Total Bilirubin Direct Bilirubin AST ALT Alkaline Phosphatase Lactate Dehydrogenase C-Reactive Protein Total Protein Albumin Triglycerides Lipase Arterial Blood Glucose Arterial Blood Ionized Calcium Urine WBC (Auto) Coronavirus (PCR) SARS-CoV-2 IgG Ab Crossmatch 05/20/20 05/20/20 05/21/20 08:16 08:16 21:10 WBC RBC Hgb Hct MCV MCH MCHC RDW Lymph % (Auto) Armstrong % (Auto) Lymph # (Auto) Armstrong # (Auto) Baso # (Auto) Seg Neutrophils % Seg Neuts % (Manual) Lymphocytes % (Manual) Nucleated RBC % Seg Neutrophils # Seg Neutrophils # Man Lymphocytes # (Manual) Monocytes # (Manual) Eosinophils # (Manual) PT INR APTT D-Dimer Heparin Anti-Xa Level ABG pH 7.483 H POC ABG pCO2 POC ABG pO2 ABG pO2 50.0 L ABG HCO3 27.0 H ABG O2 Saturation 86.2 L ABG Base Excess 3.7 H ABG Hemoglobin ABG Oxyhemoglobin ABG Sodium ABG Potassium ABG Chloride ABG Glucose Oxyhemoglobin 84.2 L Carboxyhemoglobin Sodium Potassium Chloride Carbon Dioxide BUN Creatinine Glucose POC Glucose Lactic Acid Calcium Magnesium Ferritin 1960.0 H Total Bilirubin Direct Bilirubin AST ALT Alkaline Phosphatase Lactate Dehydrogenase 705 H C-Reactive Protein 3.10 H Total Protein Albumin Triglycerides Lipase Arterial Blood Glucose Arterial Blood Ionized Calcium Urine WBC (Auto) Coronavirus (PCR) SARS-CoV-2 IgG Ab Crossmatch 05/22/20 05/22/20 05/22/20 04:01 07:53 07:53 WBC 19.2 H RBC Hgb Hct MCV 98 H MCH 34 H MCHC RDW Lymph % (Auto) Armstrong % (Auto) Lymph # (Auto) Armstrong # (Auto) Baso # (Auto) Seg Neutrophils % Seg Neuts % (Manual) 96.0 H Lymphocytes % (Manual) 1.0 L Nucleated RBC % Seg Neutrophils # Seg Neutrophils # Man 18.4 H Lymphocytes # (Manual) 0.2 L Monocytes # (Manual) Eosinophils # (Manual) PT INR APTT D-Dimer Heparin Anti-Xa Level ABG pH POC ABG pCO2 53.8 H POC ABG pO2 125.5 H ABG pO2 ABG HCO3 ABG O2 Saturation ABG Base Excess ABG Hemoglobin ABG Oxyhemoglobin ABG Sodium 131.8 L ABG Potassium 4.8 H ABG Chloride 94.0 L ABG Glucose 163 H Oxyhemoglobin Carboxyhemoglobin Sodium 131 L Potassium Chloride 93.4 L Carbon Dioxide BUN 40 H Creatinine Glucose 176 H POC Glucose Lactic Acid Calcium Magnesium 2.70 H Ferritin Total Bilirubin 1.80 H Direct Bilirubin AST 45 H ALT 116 H Alkaline Phosphatase 181 H Lactate Dehydrogenase C-Reactive Protein Total Protein Albumin 2.6 L Triglycerides Lipase Arterial Blood Glucose 163 H Arterial Blood Ionized Calcium 4.5 L Urine WBC (Auto) Coronavirus (PCR) SARS-CoV-2 IgG Ab Crossmatch 05/23/20 05/24/20 05/24/20 04:17 03:07 04:08 WBC RBC Hgb Hct MCV MCH MCHC RDW Lymph % (Auto) Armstrong % (Auto) Lymph # (Auto) Armstrong # (Auto) Baso # (Auto) Seg Neutrophils % Seg Neuts % (Manual) Lymphocytes % (Manual) Nucleated RBC % Seg Neutrophils # Seg Neutrophils # Man Lymphocytes # (Manual) Monocytes # (Manual) Eosinophils # (Manual) PT INR APTT D-Dimer Heparin Anti-Xa Level ABG pH 7.328 L POC ABG pCO2 POC ABG pO2 ABG pO2 72.8 L 73.4 L ABG HCO3 31.0 H 34.0 H ABG O2 Saturation 93.5 L ABG Base Excess 3.5 H 7.7 H ABG Hemoglobin 13.3 L 12.1 L ABG Oxyhemoglobin ABG Sodium ABG Potassium ABG Chloride ABG Glucose Oxyhemoglobin 91.5 L 94.3 L Carboxyhemoglobin Sodium Potassium Chloride Carbon Dioxide BUN Creatinine Glucose POC Glucose 155 H Lactic Acid Calcium Magnesium Ferritin Total Bilirubin Direct Bilirubin AST ALT Alkaline Phosphatase Lactate Dehydrogenase C-Reactive Protein Total Protein Albumin Triglycerides Lipase Arterial Blood Glucose Arterial Blood Ionized Calcium Urine WBC (Auto) Coronavirus (PCR) SARS-CoV-2 IgG Ab Crossmatch 05/24/20 05/24/20 05/24/20 09:33 12:21 17:52 WBC RBC Hgb Hct MCV MCH MCHC RDW Lymph % (Auto) Armstrong % (Auto) Lymph # (Auto) Armstrong # (Auto) Baso # (Auto) Seg Neutrophils % Seg Neuts % (Manual) Lymphocytes % (Manual) Nucleated RBC % Seg Neutrophils # Seg Neutrophils # Man Lymphocytes # (Manual) Monocytes # (Manual) Eosinophils # (Manual) PT INR APTT D-Dimer Heparin Anti-Xa Level ABG pH POC ABG pCO2 POC ABG pO2 ABG pO2 ABG HCO3 ABG O2 Saturation ABG Base Excess ABG Hemoglobin ABG Oxyhemoglobin ABG Sodium ABG Potassium ABG Chloride ABG Glucose Oxyhemoglobin Carboxyhemoglobin Sodium Potassium Chloride Carbon Dioxide 34 H D BUN 28 H Creatinine 0.7 L Glucose 168 H POC Glucose 173 H 164 H Lactic Acid Calcium Magnesium Ferritin Total Bilirubin Direct Bilirubin AST ALT Alkaline Phosphatase Lactate Dehydrogenase C-Reactive Protein Total Protein Albumin Triglycerides Lipase Arterial Blood Glucose Arterial Blood Ionized Calcium Urine WBC (Auto) Coronavirus (PCR) SARS-CoV-2 IgG Ab Crossmatch 05/24/20 05/25/20 05/25/20 23:47 04:29 05:46 WBC RBC Hgb Hct MCV MCH MCHC RDW Lymph % (Auto) Armstrong % (Auto) Lymph # (Auto) Armstrong # (Auto) Baso # (Auto) Seg Neutrophils % Seg Neuts % (Manual) Lymphocytes % (Manual) Nucleated RBC % Seg Neutrophils # Seg Neutrophils # Man Lymphocytes # (Manual) Monocytes # (Manual) Eosinophils # (Manual) PT INR APTT D-Dimer Heparin Anti-Xa Level ABG pH POC ABG pCO2 68.6 H POC ABG pO2 ABG pO2 ABG HCO3 ABG O2 Saturation ABG Base Excess ABG Hemoglobin ABG Oxyhemoglobin ABG Sodium ABG Potassium 4.7 H ABG Chloride ABG Glucose 226 H Oxyhemoglobin Carboxyhemoglobin Sodium Potassium Chloride Carbon Dioxide BUN Creatinine Glucose POC Glucose 171 H 201 H Lactic Acid Calcium Magnesium Ferritin Total Bilirubin Direct Bilirubin AST ALT Alkaline Phosphatase Lactate Dehydrogenase C-Reactive Protein Total Protein Albumin Triglycerides Lipase Arterial Blood Glucose 226 H Arterial Blood Ionized Calcium Urine WBC (Auto) Coronavirus (PCR) SARS-CoV-2 IgG Ab Crossmatch 05/25/20 05/25/20 05/25/20 08:37 08:37 12:38 WBC 12.0 H RBC 3.64 L Hgb Hct MCV 99 H MCH 33 H MCHC RDW Lymph % (Auto) Armstrong % (Auto) Lymph # (Auto) Armstrong # (Auto) Baso # (Auto) Seg Neutrophils % Seg Neuts % (Manual) Lymphocytes % (Manual) Nucleated RBC % Seg Neutrophils # Seg Neutrophils # Man Lymphocytes # (Manual) Monocytes # (Manual) Eosinophils # (Manual) PT INR APTT D-Dimer Heparin Anti-Xa Level ABG pH POC ABG pCO2 POC ABG pO2 ABG pO2 ABG HCO3 ABG O2 Saturation ABG Base Excess ABG Hemoglobin ABG Oxyhemoglobin ABG Sodium ABG Potassium ABG Chloride ABG Glucose Oxyhemoglobin Carboxyhemoglobin Sodium Potassium Chloride 97.3 L Carbon Dioxide 35 H BUN 25 H Creatinine 0.7 L Glucose 191 H POC Glucose 182 H Lactic Acid Calcium Magnesium Ferritin Total Bilirubin Direct Bilirubin AST ALT Alkaline Phosphatase Lactate Dehydrogenase C-Reactive Protein Total Protein Albumin Triglycerides Lipase Arterial Blood Glucose Arterial Blood Ionized Calcium Urine WBC (Auto) Coronavirus (PCR) SARS-CoV-2 IgG Ab Crossmatch 05/25/20 05/26/20 05/26/20 18:16 00:06 04:50 WBC RBC Hgb Hct MCV MCH MCHC RDW Lymph % (Auto) Armstrong % (Auto) Lymph # (Auto) Armstrong # (Auto) Baso # (Auto) Seg Neutrophils % Seg Neuts % (Manual) Lymphocytes % (Manual) Nucleated RBC % Seg Neutrophils # Seg Neutrophils # Man Lymphocytes # (Manual) Monocytes # (Manual) Eosinophils # (Manual) PT INR APTT D-Dimer Heparin Anti-Xa Level ABG pH POC ABG pCO2 POC ABG pO2 ABG pO2 221.5 H ABG HCO3 40.4 H ABG O2 Saturation 99.3 H ABG Base Excess 12.8 H ABG Hemoglobin 10.4 L ABG Oxyhemoglobin ABG Sodium ABG Potassium ABG Chloride ABG Glucose Oxyhemoglobin Carboxyhemoglobin Sodium Potassium Chloride Carbon Dioxide BUN Creatinine Glucose POC Glucose 176 H 152 H Lactic Acid Calcium Magnesium Ferritin Total Bilirubin Direct Bilirubin AST ALT Alkaline Phosphatase Lactate Dehydrogenase C-Reactive Protein Total Protein Albumin Triglycerides Lipase Arterial Blood Glucose Arterial Blood Ionized Calcium Urine WBC (Auto) Coronavirus (PCR) SARS-CoV-2 IgG Ab Crossmatch 05/26/20 05/26/20 05/26/20 06:11 07:51 07:51 WBC 13.4 H RBC 3.64 L Hgb Hct MCV 98 H MCH 33 H MCHC RDW Lymph % (Auto) Armstrong % (Auto) Lymph # (Auto) Armstrong # (Auto) Baso # (Auto) Seg Neutrophils % Seg Neuts % (Manual) Lymphocytes % (Manual) Nucleated RBC % Seg Neutrophils # Seg Neutrophils # Man Lymphocytes # (Manual) Monocytes # (Manual) Eosinophils # (Manual) PT INR APTT D-Dimer Heparin Anti-Xa Level ABG pH POC ABG pCO2 POC ABG pO2 ABG pO2 ABG HCO3 ABG O2 Saturation ABG Base Excess ABG Hemoglobin ABG Oxyhemoglobin ABG Sodium ABG Potassium ABG Chloride ABG Glucose Oxyhemoglobin Carboxyhemoglobin Sodium Potassium Chloride 96.6 L Carbon Dioxide 39 H BUN 29 H Creatinine 0.7 L Glucose 174 H POC Glucose 165 H Lactic Acid Calcium Magnesium Ferritin Total Bilirubin Direct Bilirubin AST ALT Alkaline Phosphatase Lactate Dehydrogenase C-Reactive Protein Total Protein Albumin Triglycerides Lipase Arterial Blood Glucose Arterial Blood Ionized Calcium Urine WBC (Auto) Coronavirus (PCR) SARS-CoV-2 IgG Ab Crossmatch 05/26/20 05/27/20 05/27/20 23:23 03:43 05:29 WBC RBC Hgb Hct MCV MCH MCHC RDW Lymph % (Auto) Armstrong % (Auto) Lymph # (Auto) Armstrong # (Auto) Baso # (Auto) Seg Neutrophils % Seg Neuts % (Manual) Lymphocytes % (Manual) Nucleated RBC % Seg Neutrophils # Seg Neutrophils # Man Lymphocytes # (Manual) Monocytes # (Manual) Eosinophils # (Manual) PT INR APTT D-Dimer Heparin Anti-Xa Level ABG pH 7.480 H POC ABG pCO2 52.4 H POC ABG pO2 61.4 L ABG pO2 ABG HCO3 ABG O2 Saturation ABG Base Excess ABG Hemoglobin ABG Oxyhemoglobin ABG Sodium 134.9 L ABG Potassium ABG Chloride 95.0 L ABG Glucose 221 H Oxyhemoglobin Carboxyhemoglobin Sodium Potassium Chloride Carbon Dioxide BUN Creatinine Glucose POC Glucose 169 H 227 H Lactic Acid Calcium Magnesium Ferritin Total Bilirubin Direct Bilirubin AST ALT Alkaline Phosphatase Lactate Dehydrogenase C-Reactive Protein Total Protein Albumin Triglycerides Lipase Arterial Blood Glucose 221 H Arterial Blood Ionized Calcium 4.5 L Urine WBC (Auto) Coronavirus (PCR) SARS-CoV-2 IgG Ab Crossmatch 05/27/20 05/27/20 05/27/20 07:19 12:18 13:50 WBC RBC Hgb Hct MCV MCH MCHC RDW Lymph % (Auto) Armstrong % (Auto) Lymph # (Auto) Armstrong # (Auto) Baso # (Auto) Seg Neutrophils % Seg Neuts % (Manual) Lymphocytes % (Manual) Nucleated RBC % Seg Neutrophils # Seg Neutrophils # Man Lymphocytes # (Manual) Monocytes # (Manual) Eosinophils # (Manual) PT INR APTT D-Dimer Heparin Anti-Xa Level ABG pH POC ABG pCO2 POC ABG pO2 ABG pO2 ABG HCO3 ABG O2 Saturation ABG Base Excess ABG Hemoglobin ABG Oxyhemoglobin ABG Sodium ABG Potassium ABG Chloride ABG Glucose Oxyhemoglobin Carboxyhemoglobin Sodium Potassium Chloride Carbon Dioxide BUN Creatinine Glucose POC Glucose 114 H 148 H Lactic Acid Calcium Magnesium Ferritin Total Bilirubin Direct Bilirubin AST ALT Alkaline Phosphatase Lactate Dehydrogenase C-Reactive Protein Total Protein Albumin Triglycerides 247 H Lipase Arterial Blood Glucose Arterial Blood Ionized Calcium Urine WBC (Auto) Coronavirus (PCR) SARS-CoV-2 IgG Ab Crossmatch 05/28/20 05/28/20 05/28/20 00:13 04:16 05:22 WBC RBC Hgb Hct MCV MCH MCHC RDW Lymph % (Auto) Armstrong % (Auto) Lymph # (Auto) Armstrong # (Auto) Baso # (Auto) Seg Neutrophils % Seg Neuts % (Manual) Lymphocytes % (Manual) Nucleated RBC % Seg Neutrophils # Seg Neutrophils # Man Lymphocytes # (Manual) Monocytes # (Manual) Eosinophils # (Manual) PT INR APTT D-Dimer Heparin Anti-Xa Level ABG pH POC ABG pCO2 64.4 H POC ABG pO2 60.5 L ABG pO2 ABG HCO3 ABG O2 Saturation ABG Base Excess ABG Hemoglobin ABG Oxyhemoglobin ABG Sodium ABG Potassium ABG Chloride 95.0 L ABG Glucose 209 H Oxyhemoglobin Carboxyhemoglobin Sodium Potassium Chloride Carbon Dioxide BUN Creatinine Glucose POC Glucose 155 H 186 H Lactic Acid Calcium Magnesium Ferritin Total Bilirubin Direct Bilirubin AST ALT Alkaline Phosphatase Lactate Dehydrogenase C-Reactive Protein Total Protein Albumin Triglycerides Lipase Arterial Blood Glucose 209 H Arterial Blood Ionized Calcium Urine WBC (Auto) Coronavirus (PCR) SARS-CoV-2 IgG Ab Crossmatch 05/28/20 05/28/20 05/29/20 12:45 17:39 00:37 WBC RBC Hgb Hct MCV MCH MCHC RDW Lymph % (Auto) [place] % (Auto) Lymph # (Auto) [place] # (Auto) Baso # (Auto) Seg Neutrophils % Seg Neuts % (Manual) Lymphocytes % (Manual) Nucleated RBC % Seg Neutrophils # Seg Neutrophils # Man Lymphocytes # (Manual) Monocytes # (Manual) Eosinophils # (Manual) PT INR APTT D-Dimer Heparin Anti-Xa Level ABG pH POC ABG pCO2 POC ABG pO2 ABG pO2 ABG HCO3 ABG O2 Saturation ABG Base Excess ABG Hemoglobin ABG Oxyhemoglobin ABG Sodium ABG Potassium ABG Chloride ABG Glucose Oxyhemoglobin Carboxyhemoglobin Sodium Potassium Chloride Carbon Dioxide BUN Creatinine Glucose POC Glucose 143 H 164 H 221 H Lactic Acid Calcium Magnesium Ferritin Total Bilirubin Direct Bilirubin AST ALT Alkaline Phosphatase Lactate Dehydrogenase C-Reactive Protein Total Protein Albumin Triglycerides Lipase Arterial Blood Glucose Arterial Blood Ionized Calcium Urine WBC (Auto) Coronavirus (PCR) SARS-CoV-2 IgG Ab Crossmatch 05/29/20 05/29/20 05/29/20 04:15 05:33 12:34 WBC RBC Hgb Hct MCV MCH MCHC RDW Lymph % (Auto) [place] % (Auto) Lymph # (Auto) [place] # (Auto) Baso # (Auto) Seg Neutrophils % Seg Neuts % (Manual) Lymphocytes % (Manual) Nucleated RBC % Seg Neutrophils # Seg Neutrophils # Man Lymphocytes # (Manual) Monocytes # (Manual) Eosinophils # (Manual) PT INR APTT D-Dimer Heparin Anti-Xa Level ABG pH 7.463 H POC ABG pCO2 56.3 H POC ABG pO2 81.2 L ABG pO2 ABG HCO3 ABG O2 Saturation ABG Base Excess ABG Hemoglobin ABG Oxyhemoglobin ABG Sodium ABG Potassium ABG Chloride 96.0 L ABG Glucose 194 H Oxyhemoglobin Carboxyhemoglobin Sodium Potassium Chloride Carbon Dioxide BUN Creatinine Glucose POC Glucose 133 H 221 H Lactic Acid Calcium Magnesium Ferritin Total Bilirubin Direct Bilirubin AST ALT Alkaline Phosphatase Lactate Dehydrogenase C-Reactive Protein Total Protein Albumin Triglycerides Lipase Arterial Blood Glucose 194 H Arterial Blood Ionized Calcium 4.5 L Urine WBC (Auto) Coronavirus (PCR) SARS-CoV-2 IgG Ab Crossmatch 05/29/20 05/30/20 05/30/20 18:07 00:12 05:38 WBC RBC Hgb Hct MCV MCH MCHC RDW Lymph % (Auto) [place] % (Auto) Lymph # (Auto) [place] # (Auto) Baso # (Auto) Seg Neutrophils % Seg Neuts % (Manual) Lymphocytes % (Manual) Nucleated RBC % Seg Neutrophils # Seg Neutrophils # Man Lymphocytes # (Manual) Monocytes # (Manual) Eosinophils # (Manual) PT INR APTT D-Dimer Heparin Anti-Xa Level ABG pH POC ABG pCO2 POC ABG pO2 ABG pO2 ABG HCO3 ABG O2 Saturation ABG Base Excess ABG Hemoglobin ABG Oxyhemoglobin ABG Sodium ABG Potassium ABG Chloride ABG Glucose Oxyhemoglobin Carboxyhemoglobin Sodium Potassium Chloride Carbon Dioxide BUN Creatinine Glucose POC Glucose 162 H 190 H 208 H Lactic Acid Calcium Magnesium Ferritin Total Bilirubin Direct Bilirubin AST ALT Alkaline Phosphatase Lactate Dehydrogenase C-Reactive Protein Total Protein Albumin Triglycerides Lipase Arterial Blood Glucose Arterial Blood Ionized Calcium Urine WBC (Auto) Coronavirus (PCR) SARS-CoV-2 IgG Ab Crossmatch 05/30/20 05/30/20 05/30/20 09:30 11:35 11:54 WBC 12.4 H RBC 3.48 L Hgb 11.3 L Hct 34.6 L MCV 99 H MCH 33 H MCHC RDW Lymph % (Auto) [place] % (Auto) Lymph # (Auto) [place] # (Auto) Baso # (Auto) Seg Neutrophils % Seg Neuts % (Manual) Lymphocytes % (Manual) Nucleated RBC % Seg Neutrophils # Seg Neutrophils # Man Lymphocytes # (Manual) Monocytes # (Manual) Eosinophils # (Manual) PT INR APTT D-Dimer Heparin Anti-Xa Level ABG pH 7.455 H POC ABG pCO2 57.5 H POC ABG pO2 81.5 L ABG pO2 ABG HCO3 ABG O2 Saturation ABG Base Excess ABG Hemoglobin ABG Oxyhemoglobin ABG Sodium ABG Potassium ABG Chloride 96.0 L ABG Glucose 204 H Oxyhemoglobin Carboxyhemoglobin Sodium Potassium Chloride Carbon Dioxide BUN Creatinine Glucose POC Glucose 183 H Lactic Acid Calcium Magnesium Ferritin Total Bilirubin Direct Bilirubin AST ALT Alkaline Phosphatase Lactate Dehydrogenase C-Reactive Protein Total Protein Albumin Triglycerides Lipase Arterial Blood Glucose 204 H Arterial Blood Ionized Calcium Urine WBC (Auto) Coronavirus (PCR) SARS-CoV-2 IgG Ab Crossmatch 05/30/20 05/31/20 05/31/20 18:01 00:10 03:22 WBC RBC Hgb Hct MCV MCH MCHC RDW Lymph % (Auto) [place] % (Auto) Lymph # (Auto) [place] # (Auto) Baso # (Auto) Seg Neutrophils % Seg Neuts % (Manual) Lymphocytes % (Manual) Nucleated RBC % Seg Neutrophils # Seg Neutrophils # Man Lymphocytes # (Manual) Monocytes # (Manual) Eosinophils # (Manual) PT INR APTT D-Dimer Heparin Anti-Xa Level ABG pH POC ABG pCO2 60.4 H POC ABG pO2 71.5 L ABG pO2 ABG HCO3 ABG O2 Saturation ABG Base Excess ABG Hemoglobin ABG Oxyhemoglobin ABG Sodium ABG Potassium ABG Chloride 96.0 L ABG Glucose 169 H Oxyhemoglobin Carboxyhemoglobin Sodium Potassium Chloride Carbon Dioxide BUN Creatinine Glucose POC Glucose 184 H 135 H Lactic Acid Calcium Magnesium Ferritin Total Bilirubin Direct Bilirubin AST ALT Alkaline Phosphatase Lactate Dehydrogenase C-Reactive Protein Total Protein Albumin Triglycerides Lipase Arterial Blood Glucose 169 H Arterial Blood Ionized Calcium 4.5 L Urine WBC (Auto) Coronavirus (PCR) SARS-CoV-2 IgG Ab Crossmatch 05/31/20 05/31/20 05/31/20 05:24 11:18 14:41 WBC RBC Hgb Hct MCV MCH MCHC RDW Lymph % (Auto) [place] % (Auto) Lymph # (Auto) [place] # (Auto) Baso # (Auto) Seg Neutrophils % Seg Neuts % (Manual) Lymphocytes % (Manual) Nucleated RBC % Seg Neutrophils # Seg Neutrophils # Man Lymphocytes # (Manual) Monocytes # (Manual) Eosinophils # (Manual) PT INR APTT D-Dimer Heparin Anti-Xa Level ABG pH POC ABG pCO2 POC ABG pO2 ABG pO2 ABG HCO3 ABG O2 Saturation ABG Base Excess ABG Hemoglobin ABG Oxyhemoglobin ABG Sodium ABG Potassium ABG Chloride ABG Glucose Oxyhemoglobin Carboxyhemoglobin Sodium Potassium Chloride 96.8 L Carbon Dioxide 37 H BUN 31 H Creatinine 0.6 L Glucose 213 H POC Glucose 164 H 208 H Lactic Acid Calcium Magnesium Ferritin Total Bilirubin Direct Bilirubin AST ALT Alkaline Phosphatase Lactate Dehydrogenase C-Reactive Protein Total Protein Albumin Triglycerides Lipase Arterial Blood Glucose Arterial Blood Ionized Calcium Urine WBC (Auto) Coronavirus (PCR) SARS-CoV-2 IgG Ab Crossmatch 05/31/20 05/31/20 06/01/20 17:37 23:47 03:48 WBC RBC Hgb Hct MCV MCH MCHC RDW Lymph % (Auto) [place] % (Auto) Lymph # (Auto) [place] # (Auto) Baso # (Auto) Seg Neutrophils % Seg Neuts % (Manual) Lymphocytes % (Manual) Nucleated RBC % Seg Neutrophils # Seg Neutrophils # Man Lymphocytes # (Manual) Monocytes # (Manual) Eosinophils # (Manual) PT INR APTT D-Dimer Heparin Anti-Xa Level ABG pH POC ABG pCO2 59.7 H POC ABG pO2 73.9 L ABG pO2 ABG HCO3 ABG O2 Saturation ABG Base Excess ABG Hemoglobin ABG Oxyhemoglobin ABG Sodium ABG Potassium ABG Chloride 95.0 L ABG Glucose 256 H Oxyhemoglobin Carboxyhemoglobin Sodium Potassium Chloride Carbon Dioxide BUN Creatinine Glucose POC Glucose 168 H 178 H Lactic Acid Calcium Magnesium Ferritin Total Bilirubin Direct Bilirubin AST ALT Alkaline Phosphatase Lactate Dehydrogenase C-Reactive Protein Total Protein Albumin Triglycerides Lipase Arterial Blood Glucose 256 H Arterial Blood Ionized Calcium Urine WBC (Auto) Coronavirus (PCR) SARS-CoV-2 IgG Ab Crossmatch 06/01/20 06/01/20 06/01/20 05:01 07:47 07:47 WBC 14.4 H RBC 3.46 L Hgb 11.1 L Hct 34.3 L MCV 99 H MCH MCHC RDW Lymph % (Auto) Armstrong % (Auto) Lymph # (Auto) [place] # (Auto) Baso # (Auto) Seg Neutrophils % Seg Neuts % (Manual) 86.0 H Lymphocytes % (Manual) 9.0 L Nucleated RBC % Seg Neutrophils # Seg Neutrophils # Man 12.4 H Lymphocytes # (Manual) Monocytes # (Manual) Eosinophils # (Manual) PT INR APTT D-Dimer Heparin Anti-Xa Level ABG pH POC ABG pCO2 POC ABG pO2 ABG pO2 ABG HCO3 ABG O2 Saturation ABG Base Excess ABG Hemoglobin ABG Oxyhemoglobin ABG Sodium ABG Potassium ABG Chloride ABG Glucose Oxyhemoglobin Carboxyhemoglobin Sodium Potassium Chloride Carbon Dioxide BUN Creatinine Glucose POC Glucose 197 H Lactic Acid Calcium Magnesium Ferritin Total Bilirubin Direct Bilirubin AST ALT Alkaline Phosphatase Lactate Dehydrogenase C-Reactive Protein Total Protein Albumin Triglycerides 244 H Lipase Arterial Blood Glucose Arterial Blood Ionized Calcium Urine WBC (Auto) Coronavirus (PCR) SARS-CoV-2 IgG Ab Crossmatch 06/01/20 06/01/20 06/01/20 07:47 11:46 18:15 WBC RBC Hgb Hct MCV MCH MCHC RDW Lymph % (Auto) [place] % (Auto) Lymph # (Auto) Armstrong # (Auto) Baso # (Auto) Seg Neutrophils % Seg Neuts % (Manual) Lymphocytes % (Manual) Nucleated RBC % Seg Neutrophils # Seg Neutrophils # Man Lymphocytes # (Manual) Monocytes # (Manual) Eosinophils # (Manual) PT INR APTT D-Dimer Heparin Anti-Xa Level ABG pH POC ABG pCO2 POC ABG pO2 ABG pO2 ABG HCO3 ABG O2 Saturation ABG Base Excess ABG Hemoglobin ABG Oxyhemoglobin ABG Sodium ABG Potassium ABG Chloride ABG Glucose Oxyhemoglobin Carboxyhemoglobin Sodium Potassium Chloride 95.4 L Carbon Dioxide 35 H BUN 30 H Creatinine 0.5 L Glucose 214 H POC Glucose 181 H 221 H Lactic Acid Calcium Magnesium Ferritin Total Bilirubin Direct Bilirubin AST 54 H ALT 235 H Alkaline Phosphatase Lactate Dehydrogenase C-Reactive Protein Total Protein Albumin 2.9 L Triglycerides Lipase Arterial Blood Glucose Arterial Blood Ionized Calcium Urine WBC (Auto) Coronavirus (PCR) SARS-CoV-2 IgG Ab Crossmatch 06/01/20 06/02/20 06/02/20 23:12 04:00 05:31 WBC RBC Hgb Hct MCV MCH MCHC RDW Lymph % (Auto) [place] % (Auto) Lymph # (Auto) [place] # (Auto) Baso # (Auto) Seg Neutrophils % Seg Neuts % (Manual) Lymphocytes % (Manual) Nucleated RBC % Seg Neutrophils # Seg Neutrophils # Man Lymphocytes # (Manual) Monocytes # (Manual) Eosinophils # (Manual) PT INR APTT D-Dimer Heparin Anti-Xa Level ABG pH 7.465 H POC ABG pCO2 POC ABG pO2 ABG pO2 203.4 H ABG HCO3 41.2 H ABG O2 Saturation 99.3 H ABG Base Excess 15.1 H ABG Hemoglobin 11.5 L ABG Oxyhemoglobin ABG Sodium ABG Potassium ABG Chloride ABG Glucose Oxyhemoglobin Carboxyhemoglobin Sodium Potassium Chloride Carbon Dioxide BUN Creatinine Glucose POC Glucose 197 H 184 H Lactic Acid Calcium Magnesium Ferritin Total Bilirubin Direct Bilirubin AST ALT Alkaline Phosphatase Lactate Dehydrogenase C-Reactive Protein Total Protein Albumin Triglycerides Lipase Arterial Blood Glucose Arterial Blood Ionized Calcium Urine WBC (Auto) Coronavirus (PCR) SARS-CoV-2 IgG Ab Crossmatch 06/02/20 06/02/20 06/02/20 11:49 18:06 23:00 WBC RBC Hgb Hct MCV MCH MCHC RDW Lymph % (Auto) [place] % (Auto) Lymph # (Auto) [place] # (Auto) Baso # (Auto) Seg Neutrophils % Seg Neuts % (Manual) Lymphocytes % (Manual) Nucleated RBC % Seg Neutrophils # Seg Neutrophils # Man Lymphocytes # (Manual) Monocytes # (Manual) Eosinophils # (Manual) PT INR APTT D-Dimer Heparin Anti-Xa Level ABG pH POC ABG pCO2 POC ABG pO2 ABG pO2 ABG HCO3 ABG O2 Saturation ABG Base Excess ABG Hemoglobin ABG Oxyhemoglobin ABG Sodium ABG Potassium ABG Chloride ABG Glucose Oxyhemoglobin Carboxyhemoglobin Sodium Potassium Chloride Carbon Dioxide BUN Creatinine Glucose POC Glucose 195 H 177 H 228 H Lactic Acid Calcium Magnesium Ferritin Total Bilirubin Direct Bilirubin AST ALT Alkaline Phosphatase Lactate Dehydrogenase C-Reactive Protein Total Protein Albumin Triglycerides Lipase Arterial Blood Glucose Arterial Blood Ionized Calcium Urine WBC (Auto) Coronavirus (PCR) SARS-CoV-2 IgG Ab Crossmatch 06/03/20 06/03/20 06/03/20 03:58 05:19 12:21 WBC RBC Hgb Hct MCV MCH MCHC RDW Lymph % (Auto) [place] % (Auto) Lymph # (Auto) [place] # (Auto) Baso # (Auto) Seg Neutrophils % Seg Neuts % (Manual) Lymphocytes % (Manual) Nucleated RBC % Seg Neutrophils # Seg Neutrophils # Man Lymphocytes # (Manual) Monocytes # (Manual) Eosinophils # (Manual) PT INR APTT D-Dimer Heparin Anti-Xa Level ABG pH POC ABG pCO2 POC ABG pO2 ABG pO2 171.0 H ABG HCO3 42.8 H ABG O2 Saturation ABG Base Excess 15.6 H ABG Hemoglobin 12.3 L ABG Oxyhemoglobin ABG Sodium ABG Potassium ABG Chloride ABG Glucose Oxyhemoglobin Carboxyhemoglobin Sodium Potassium Chloride Carbon Dioxide BUN Creatinine Glucose POC Glucose 122 H 207 H Lactic Acid Calcium Magnesium Ferritin Total Bilirubin Direct Bilirubin AST ALT Alkaline Phosphatase Lactate Dehydrogenase C-Reactive Protein Total Protein Albumin Triglycerides Lipase Arterial Blood Glucose Arterial Blood Ionized Calcium Urine WBC (Auto) Coronavirus (PCR) SARS-CoV-2 IgG Ab Crossmatch 06/03/20 06/03/20 06/04/20 17:27 23:50 03:55 WBC RBC Hgb Hct MCV MCH MCHC RDW Lymph % (Auto) [place] % (Auto) Lymph # (Auto) [place] # (Auto) Baso # (Auto) Seg Neutrophils % Seg Neuts % (Manual) Lymphocytes % (Manual) Nucleated RBC % Seg Neutrophils # Seg Neutrophils # Man Lymphocytes # (Manual) Monocytes # (Manual) Eosinophils # (Manual) PT INR APTT D-Dimer Heparin Anti-Xa Level ABG pH POC ABG pCO2 POC ABG pO2 ABG pO2 117.2 H ABG HCO3 42.4 H ABG O2 Saturation ABG Base Excess 15.3 H ABG Hemoglobin 10.5 L ABG Oxyhemoglobin ABG Sodium ABG Potassium ABG Chloride ABG Glucose Oxyhemoglobin Carboxyhemoglobin Sodium Potassium Chloride Carbon Dioxide BUN Creatinine Glucose POC Glucose 157 H 214 H Lactic Acid Calcium Magnesium Ferritin Total Bilirubin Direct Bilirubin AST ALT Alkaline Phosphatase Lactate Dehydrogenase C-Reactive Protein Total Protein Albumin Triglycerides Lipase Arterial Blood Glucose Arterial Blood Ionized Calcium Urine WBC (Auto) Coronavirus (PCR) SARS-CoV-2 IgG Ab Crossmatch 06/04/20 06/04/20 06/04/20 05:49 11:41 17:30 WBC RBC Hgb Hct MCV MCH MCHC RDW Lymph % (Auto) [place] % (Auto) Lymph # (Auto) [place] # (Auto) Baso # (Auto) Seg Neutrophils % Seg Neuts % (Manual) Lymphocytes % (Manual) Nucleated RBC % Seg Neutrophils # Seg Neutrophils # Man Lymphocytes # (Manual) Monocytes # (Manual) Eosinophils # (Manual) PT INR APTT D-Dimer Heparin Anti-Xa Level ABG pH POC ABG pCO2 POC ABG pO2 ABG pO2 ABG HCO3 ABG O2 Saturation ABG Base Excess ABG Hemoglobin ABG Oxyhemoglobin ABG Sodium ABG Potassium ABG Chloride ABG Glucose Oxyhemoglobin Carboxyhemoglobin Sodium Potassium Chloride Carbon Dioxide BUN Creatinine Glucose POC Glucose 149 H 233 H 156 H Lactic Acid Calcium Magnesium Ferritin Total Bilirubin Direct Bilirubin AST ALT Alkaline Phosphatase Lactate Dehydrogenase C-Reactive Protein Total Protein Albumin Triglycerides Lipase Arterial Blood Glucose Arterial Blood Ionized Calcium Urine WBC (Auto) Coronavirus (PCR) SARS-CoV-2 IgG Ab Crossmatch 06/04/20 06/04/20 06/04/20 19:01 20:53 23:41 WBC RBC 3.18 L Hgb 10.8 L Hct 31.8 L MCV 100 H MCH 34 H MCHC RDW Lymph % (Auto) [place] % (Auto) Lymph # (Auto) [place] # (Auto) Baso # (Auto) Seg Neutrophils % Seg Neuts % (Manual) 86.0 H Lymphocytes % (Manual) 10.0 L Nucleated RBC % 1.0 H Seg Neutrophils # Seg Neutrophils # Man 8.5 H Lymphocytes # (Manual) 1.0 L Monocytes # (Manual) Eosinophils # (Manual) PT INR APTT D-Dimer Heparin Anti-Xa Level ABG pH POC ABG pCO2 POC ABG pO2 ABG pO2 ABG HCO3 ABG O2 Saturation ABG Base Excess ABG Hemoglobin ABG Oxyhemoglobin ABG Sodium ABG Potassium ABG Chloride ABG Glucose Oxyhemoglobin Carboxyhemoglobin Sodium Potassium 3.4 L D Chloride 96.5 L Carbon Dioxide 41 H* BUN 27 H Creatinine 0.5 L Glucose 173 H POC Glucose 217 H Lactic Acid Calcium Magnesium Ferritin Total Bilirubin Direct Bilirubin AST ALT Alkaline Phosphatase Lactate Dehydrogenase C-Reactive Protein Total Protein Albumin Triglycerides Lipase Arterial Blood Glucose Arterial Blood Ionized Calcium Urine WBC (Auto) Coronavirus (PCR) SARS-CoV-2 IgG Ab Crossmatch 06/05/20 06/05/20 06/05/20 06:05 11:54 12:35 WBC RBC Hgb Hct MCV MCH MCHC RDW Lymph % (Auto) [place] % (Auto) Lymph # (Auto) [place] # (Auto) Baso # (Auto) Seg Neutrophils % Seg Neuts % (Manual) Lymphocytes % (Manual) Nucleated RBC % Seg Neutrophils # Seg Neutrophils # Man Lymphocytes # (Manual) Monocytes # (Manual) Eosinophils # (Manual) PT INR APTT D-Dimer Heparin Anti-Xa Level ABG pH POC ABG pCO2 POC ABG pO2 ABG pO2 127.9 H ABG HCO3 41.1 H ABG O2 Saturation ABG Base Excess 13.0 H ABG Hemoglobin 13.4 L ABG Oxyhemoglobin ABG Sodium ABG Potassium ABG Chloride ABG Glucose Oxyhemoglobin Carboxyhemoglobin Sodium Potassium Chloride Carbon Dioxide BUN Creatinine Glucose POC Glucose 137 H 211 H Lactic Acid Calcium Magnesium Ferritin Total Bilirubin Direct Bilirubin AST ALT Alkaline Phosphatase Lactate Dehydrogenase C-Reactive Protein Total Protein Albumin Triglycerides Lipase Arterial Blood Glucose Arterial Blood Ionized Calcium Urine WBC (Auto) Coronavirus (PCR) SARS-CoV-2 IgG Ab Crossmatch 06/05/20 06/05/20 06/06/20 17:03 23:49 04:42 WBC RBC Hgb Hct MCV MCH MCHC RDW Lymph % (Auto) [place] % (Auto) Lymph # (Auto) [place] # (Auto) Baso # (Auto) Seg Neutrophils % Seg Neuts % (Manual) Lymphocytes % (Manual) Nucleated RBC % Seg Neutrophils # Seg Neutrophils # Man Lymphocytes # (Manual) Monocytes # (Manual) Eosinophils # (Manual) PT INR APTT D-Dimer Heparin Anti-Xa Level ABG pH POC ABG pCO2 56.1 H POC ABG pO2 52.5 L ABG pO2 ABG HCO3 ABG O2 Saturation ABG Base Excess ABG Hemoglobin 11.7 L ABG Oxyhemoglobin ABG Sodium ABG Potassium 3.3 L ABG Chloride 95.0 L ABG Glucose 156 H Oxyhemoglobin Carboxyhemoglobin Sodium Potassium Chloride Carbon Dioxide BUN Creatinine Glucose POC Glucose 159 H 194 H Lactic Acid Calcium Magnesium Ferritin Total Bilirubin Direct Bilirubin AST ALT Alkaline Phosphatase Lactate Dehydrogenase C-Reactive Protein Total Protein Albumin Triglycerides Lipase Arterial Blood Glucose 156 H Arterial Blood Ionized Calcium Urine WBC (Auto) Coronavirus (PCR) SARS-CoV-2 IgG Ab Crossmatch 06/06/20 06/06/20 06/06/20 05:57 12:06 17:38 WBC RBC Hgb Hct MCV MCH MCHC RDW Lymph % (Auto) [place] % (Auto) Lymph # (Auto) [place] # (Auto) Baso # (Auto) Seg Neutrophils % Seg Neuts % (Manual) Lymphocytes % (Manual) Nucleated RBC % Seg Neutrophils # Seg Neutrophils # Man Lymphocytes # (Manual) Monocytes # (Manual) Eosinophils # (Manual) PT INR APTT D-Dimer Heparin Anti-Xa Level ABG pH POC ABG pCO2 POC ABG pO2 ABG pO2 ABG HCO3 ABG O2 Saturation ABG Base Excess ABG Hemoglobin ABG Oxyhemoglobin ABG Sodium ABG Potassium ABG Chloride ABG Glucose Oxyhemoglobin Carboxyhemoglobin Sodium Potassium Chloride Carbon Dioxide BUN Creatinine Glucose POC Glucose 144 H 230 H 162 H Lactic Acid Calcium Magnesium Ferritin Total Bilirubin Direct Bilirubin AST ALT Alkaline Phosphatase Lactate Dehydrogenase C-Reactive Protein Total Protein Albumin Triglycerides Lipase Arterial Blood Glucose Arterial Blood Ionized Calcium Urine WBC (Auto) Coronavirus (PCR) SARS-CoV-2 IgG Ab Crossmatch 06/06/20 06/07/20 06/07/20 23:50 04:34 06:03 WBC RBC Hgb Hct MCV MCH MCHC RDW Lymph % (Auto) [place] % (Auto) Lymph # (Auto) [place] # (Auto) Baso # (Auto) Seg Neutrophils % Seg Neuts % (Manual) Lymphocytes % (Manual) Nucleated RBC % Seg Neutrophils # Seg Neutrophils # Man Lymphocytes # (Manual) Monocytes # (Manual) Eosinophils # (Manual) PT INR APTT D-Dimer Heparin Anti-Xa Level ABG pH 7.511 H POC ABG pCO2 53.5 H POC ABG pO2 114.5 H ABG pO2 ABG HCO3 ABG O2 Saturation ABG Base Excess ABG Hemoglobin 9.4 L ABG Oxyhemoglobin ABG Sodium 134.5 L ABG Potassium ABG Chloride 94.0 L ABG Glucose 186 H Oxyhemoglobin Carboxyhemoglobin Sodium Potassium Chloride Carbon Dioxide BUN Creatinine Glucose POC Glucose 181 H 155 H Lactic Acid Calcium Magnesium Ferritin Total Bilirubin Direct Bilirubin AST ALT Alkaline Phosphatase Lactate Dehydrogenase C-Reactive Protein Total Protein Albumin Triglycerides Lipase Arterial Blood Glucose 186 H Arterial Blood Ionized Calcium 4.5 L Urine WBC (Auto) Coronavirus (PCR) SARS-CoV-2 IgG Ab Crossmatch 06/07/20 06/07/20 06/07/20 13:41 14:58 14:58 WBC RBC 2.72 L Hgb 9.3 L Hct 27.2 L MCV 100 H MCH 34 H MCHC RDW Lymph % (Auto) [place] % (Auto) Lymph # (Auto) [place] # (Auto) Baso # (Auto) Seg Neutrophils % Seg Neuts % (Manual) Lymphocytes % (Manual) Nucleated RBC % Seg Neutrophils # Seg Neutrophils # Man Lymphocytes # (Manual) Monocytes # (Manual) Eosinophils # (Manual) PT INR APTT D-Dimer Heparin Anti-Xa Level ABG pH POC ABG pCO2 POC ABG pO2 ABG pO2 ABG HCO3 ABG O2 Saturation ABG Base Excess ABG Hemoglobin ABG Oxyhemoglobin ABG Sodium ABG Potassium ABG Chloride ABG Glucose Oxyhemoglobin Carboxyhemoglobin Sodium Potassium Chloride 93.5 L Carbon Dioxide 39 H BUN 22 H Creatinine 0.4 L Glucose 188 H POC Glucose 201 H Lactic Acid Calcium Magnesium Ferritin Total Bilirubin Direct Bilirubin AST 61 H ALT 273 H Alkaline Phosphatase Lactate Dehydrogenase C-Reactive Protein Total Protein 5.9 L Albumin 2.7 L Triglycerides Lipase Arterial Blood Glucose Arterial Blood Ionized Calcium Urine WBC (Auto) Coronavirus (PCR) SARS-CoV-2 IgG Ab Crossmatch 06/07/20 06/08/20 06/08/20 23:18 05:31 12:07 WBC RBC Hgb Hct MCV MCH MCHC RDW Lymph % (Auto) Armstrong % (Auto) Lymph # (Auto) Armstrong # (Auto) Baso # (Auto) Seg Neutrophils % Seg Neuts % (Manual) Lymphocytes % (Manual) Nucleated RBC % Seg Neutrophils # Seg Neutrophils # Man Lymphocytes # (Manual) Monocytes # (Manual) Eosinophils # (Manual) PT INR APTT D-Dimer Heparin Anti-Xa Level ABG pH POC ABG pCO2 POC ABG pO2 ABG pO2 ABG HCO3 ABG O2 Saturation ABG Base Excess ABG Hemoglobin ABG Oxyhemoglobin ABG Sodium ABG Potassium ABG Chloride ABG Glucose Oxyhemoglobin Carboxyhemoglobin Sodium Potassium Chloride Carbon Dioxide BUN Creatinine Glucose POC Glucose 214 H 129 H 179 H Lactic Acid Calcium Magnesium Ferritin Total Bilirubin Direct Bilirubin AST ALT Alkaline Phosphatase Lactate Dehydrogenase C-Reactive Protein Total Protein Albumin Triglycerides Lipase Arterial Blood Glucose Arterial Blood Ionized Calcium Urine WBC (Auto) Coronavirus (PCR) SARS-CoV-2 IgG Ab Crossmatch 06/08/20 06/08/20 06/09/20 18:18 23:35 05:42 WBC RBC Hgb Hct MCV MCH MCHC RDW Lymph % (Auto) Armstrong % (Auto) Lymph # (Auto) Armstrong # (Auto) Baso # (Auto) Seg Neutrophils % Seg Neuts % (Manual) Lymphocytes % (Manual) Nucleated RBC % Seg Neutrophils # Seg Neutrophils # Man Lymphocytes # (Manual) Monocytes # (Manual) Eosinophils # (Manual) PT INR APTT D-Dimer Heparin Anti-Xa Level ABG pH POC ABG pCO2 POC ABG pO2 ABG pO2 ABG HCO3 ABG O2 Saturation ABG Base Excess ABG Hemoglobin ABG Oxyhemoglobin ABG Sodium ABG Potassium ABG Chloride ABG Glucose Oxyhemoglobin Carboxyhemoglobin Sodium Potassium Chloride Carbon Dioxide BUN Creatinine Glucose POC Glucose 172 H 177 H 137 H Lactic Acid Calcium Magnesium Ferritin Total Bilirubin Direct Bilirubin AST ALT Alkaline Phosphatase Lactate Dehydrogenase C-Reactive Protein Total Protein Albumin Triglycerides Lipase Arterial Blood Glucose Arterial Blood Ionized Calcium Urine WBC (Auto) Coronavirus (PCR) SARS-CoV-2 IgG Ab Crossmatch 06/09/20 06/09/20 06/09/20 06:20 07:55 07:55 WBC 12.4 H RBC 3.26 L Hgb 11.1 L Hct 33.4 L D MCV 102 H MCH 34 H MCHC RDW Lymph % (Auto) Armstrong % (Auto) Lymph # (Auto) Armstrong # (Auto) Baso # (Auto) Seg Neutrophils % Seg Neuts % (Manual) Lymphocytes % (Manual) Nucleated RBC % Seg Neutrophils # Seg Neutrophils # Man Lymphocytes # (Manual) Monocytes # (Manual) Eosinophils # (Manual) PT INR APTT D-Dimer Heparin Anti-Xa Level ABG pH 7.466 H POC ABG pCO2 50.7 H POC ABG pO2 53.0 L ABG pO2 ABG HCO3 ABG O2 Saturation ABG Base Excess ABG Hemoglobin ABG Oxyhemoglobin ABG Sodium ABG Potassium 2.9 L ABG Chloride 93.0 L ABG Glucose 138 H Oxyhemoglobin Carboxyhemoglobin Sodium Potassium 3.0 L Chloride 92.3 L Carbon Dioxide 37 H BUN 21 H Creatinine 0.6 L Glucose 120 H POC Glucose Lactic Acid Calcium Magnesium Ferritin Total Bilirubin Direct Bilirubin AST ALT Alkaline Phosphatase Lactate Dehydrogenase C-Reactive Protein Total Protein Albumin Triglycerides Lipase Arterial Blood Glucose 138 H Arterial Blood Ionized Calcium 4.5 L Urine WBC (Auto) Coronavirus (PCR) SARS-CoV-2 IgG Ab Crossmatch 06/09/20 06/09/20 06/10/20 11:22 18:32 04:46 WBC RBC Hgb Hct MCV MCH MCHC RDW Lymph % (Auto) Armstrong % (Auto) Lymph # (Auto) Armstrong # (Auto) Baso # (Auto) Seg Neutrophils % Seg Neuts % (Manual) Lymphocytes % (Manual) Nucleated RBC % Seg Neutrophils # Seg Neutrophils # Man Lymphocytes # (Manual) Monocytes # (Manual) Eosinophils # (Manual) PT INR APTT D-Dimer Heparin Anti-Xa Level ABG pH 7.501 H POC ABG pCO2 POC ABG pO2 126.5 H ABG pO2 ABG HCO3 ABG O2 Saturation ABG Base Excess ABG Hemoglobin 10.3 L ABG Oxyhemoglobin ABG Sodium ABG Potassium ABG Chloride ABG Glucose 220 H Oxyhemoglobin Carboxyhemoglobin Sodium Potassium Chloride Carbon Dioxide BUN Creatinine Glucose POC Glucose 117 H 121 H Lactic Acid Calcium Magnesium Ferritin Total Bilirubin Direct Bilirubin AST ALT Alkaline Phosphatase Lactate Dehydrogenase C-Reactive Protein Total Protein Albumin Triglycerides Lipase Arterial Blood Glucose 220 H Arterial Blood Ionized Calcium Urine WBC (Auto) Coronavirus (PCR) SARS-CoV-2 IgG Ab Crossmatch 06/10/20 06/10/20 06/10/20 05:30 09:38 12:03 WBC RBC Hgb Hct MCV MCH MCHC RDW Lymph % (Auto) Armstrong % (Auto) Lymph # (Auto) Armstrong # (Auto) Baso # (Auto) Seg Neutrophils % Seg Neuts % (Manual) Lymphocytes % (Manual) Nucleated RBC % Seg Neutrophils # Seg Neutrophils # Man Lymphocytes # (Manual) Monocytes # (Manual) Eosinophils # (Manual) PT INR APTT D-Dimer Heparin Anti-Xa Level ABG pH POC ABG pCO2 POC ABG pO2 ABG pO2 ABG HCO3 ABG O2 Saturation ABG Base Excess ABG Hemoglobin ABG Oxyhemoglobin ABG Sodium ABG Potassium ABG Chloride ABG Glucose Oxyhemoglobin Carboxyhemoglobin Sodium Potassium Chloride Carbon Dioxide BUN Creatinine Glucose POC Glucose 181 H 204 H Lactic Acid Calcium Magnesium Ferritin Total Bilirubin Direct Bilirubin AST ALT Alkaline Phosphatase Lactate Dehydrogenase C-Reactive Protein Total Protein Albumin Triglycerides 738 H Lipase Arterial Blood Glucose Arterial Blood Ionized Calcium Urine WBC (Auto) Coronavirus (PCR) SARS-CoV-2 IgG Ab Crossmatch 06/10/20 06/11/20 06/11/20 17:17 00:04 04:38 WBC RBC Hgb Hct MCV MCH MCHC RDW Lymph % (Auto) Armstrong % (Auto) Lymph # (Auto) Armstrong # (Auto) Baso # (Auto) Seg Neutrophils % Seg Neuts % (Manual) Lymphocytes % (Manual) Nucleated RBC % Seg Neutrophils # Seg Neutrophils # Man Lymphocytes # (Manual) Monocytes # (Manual) Eosinophils # (Manual) PT INR APTT D-Dimer Heparin Anti-Xa Level ABG pH 7.479 H POC ABG pCO2 POC ABG pO2 76.7 L ABG pO2 ABG HCO3 ABG O2 Saturation ABG Base Excess ABG Hemoglobin 9.8 L ABG Oxyhemoglobin ABG Sodium 135.8 L ABG Potassium ABG Chloride ABG Glucose 238 H Oxyhemoglobin Carboxyhemoglobin Sodium Potassium Chloride Carbon Dioxide BUN Creatinine Glucose POC Glucose 156 H 178 H Lactic Acid Calcium Magnesium Ferritin Total Bilirubin Direct Bilirubin AST ALT Alkaline Phosphatase Lactate Dehydrogenase C-Reactive Protein Total Protein Albumin Triglycerides Lipase Arterial Blood Glucose 238 H Arterial Blood Ionized Calcium Urine WBC (Auto) Coronavirus (PCR) SARS-CoV-2 IgG Ab Crossmatch 06/11/20 06/11/20 06/11/20 05:21 06:52 11:50 WBC RBC Hgb Hct MCV MCH MCHC RDW Lymph % (Auto) Armstrong % (Auto) Lymph # (Auto) Armstrong # (Auto) Baso # (Auto) Seg Neutrophils % Seg Neuts % (Manual) Lymphocytes % (Manual) Nucleated RBC % Seg Neutrophils # Seg Neutrophils # Man Lymphocytes # (Manual) Monocytes # (Manual) Eosinophils # (Manual) PT INR APTT D-Dimer Heparin Anti-Xa Level ABG pH POC ABG pCO2 POC ABG pO2 ABG pO2 ABG HCO3 ABG O2 Saturation ABG Base Excess ABG Hemoglobin ABG Oxyhemoglobin ABG Sodium ABG Potassium ABG Chloride ABG Glucose Oxyhemoglobin Carboxyhemoglobin Sodium Potassium Chloride Carbon Dioxide BUN Creatinine Glucose POC Glucose 215 H 187 H Lactic Acid Calcium Magnesium Ferritin Total Bilirubin Direct Bilirubin AST ALT Alkaline Phosphatase Lactate Dehydrogenase C-Reactive Protein Total Protein Albumin Triglycerides 331 H Lipase Arterial Blood Glucose Arterial Blood Ionized Calcium Urine WBC (Auto) Coronavirus (PCR) SARS-CoV-2 IgG Ab Crossmatch 06/11/20 06/11/20 06/12/20 17:49 23:35 04:52 WBC RBC Hgb Hct MCV MCH MCHC RDW Lymph % (Auto) [place] % (Auto) Lymph # (Auto) Armstrong # (Auto) Baso # (Auto) Seg Neutrophils % Seg Neuts % (Manual) Lymphocytes % (Manual) Nucleated RBC % Seg Neutrophils # Seg Neutrophils # Man Lymphocytes # (Manual) Monocytes # (Manual) Eosinophils # (Manual) PT INR APTT D-Dimer Heparin Anti-Xa Level ABG pH 7.486 H POC ABG pCO2 POC ABG pO2 ABG pO2 ABG HCO3 ABG O2 Saturation ABG Base Excess ABG Hemoglobin 9.4 L ABG Oxyhemoglobin ABG Sodium ABG Potassium 3.2 L ABG Chloride ABG Glucose 209 H Oxyhemoglobin Carboxyhemoglobin Sodium Potassium Chloride Carbon Dioxide BUN Creatinine Glucose POC Glucose 211 H 200 H Lactic Acid Calcium Magnesium Ferritin Total Bilirubin Direct Bilirubin AST ALT Alkaline Phosphatase Lactate Dehydrogenase C-Reactive Protein Total Protein Albumin Triglycerides Lipase Arterial Blood Glucose 209 H Arterial Blood Ionized Calcium Urine WBC (Auto) Coronavirus (PCR) SARS-CoV-2 IgG Ab Crossmatch 06/12/20 06/12/20 06/12/20 05:13 11:47 18:33 WBC RBC Hgb Hct MCV MCH MCHC RDW Lymph % (Auto) [place] % (Auto) Lymph # (Auto) Armstrong # (Auto) Baso # (Auto) Seg Neutrophils % Seg Neuts % (Manual) Lymphocytes % (Manual) Nucleated RBC % Seg Neutrophils # Seg Neutrophils # Man Lymphocytes # (Manual) Monocytes # (Manual) Eosinophils # (Manual) PT INR APTT D-Dimer Heparin Anti-Xa Level ABG pH POC ABG pCO2 POC ABG pO2 ABG pO2 ABG HCO3 ABG O2 Saturation ABG Base Excess ABG Hemoglobin ABG Oxyhemoglobin ABG Sodium ABG Potassium ABG Chloride ABG Glucose Oxyhemoglobin Carboxyhemoglobin Sodium Potassium Chloride Carbon Dioxide BUN Creatinine Glucose POC Glucose 174 H 214 H 194 H Lactic Acid Calcium Magnesium Ferritin Total Bilirubin Direct Bilirubin AST ALT Alkaline Phosphatase Lactate Dehydrogenase C-Reactive Protein Total Protein Albumin Triglycerides Lipase Arterial Blood Glucose Arterial Blood Ionized Calcium Urine WBC (Auto) Coronavirus (PCR) SARS-CoV-2 IgG Ab Crossmatch 06/12/20 06/13/20 06/13/20 23:49 05:41 12:30 WBC RBC Hgb Hct MCV MCH MCHC RDW Lymph % (Auto) Armstrong % (Auto) Lymph # (Auto) Armstrong # (Auto) Baso # (Auto) Seg Neutrophils % Seg Neuts % (Manual) Lymphocytes % (Manual) Nucleated RBC % Seg Neutrophils # Seg Neutrophils # Man Lymphocytes # (Manual) Monocytes # (Manual) Eosinophils # (Manual) PT INR APTT D-Dimer Heparin Anti-Xa Level ABG pH POC ABG pCO2 POC ABG pO2 ABG pO2 ABG HCO3 ABG O2 Saturation ABG Base Excess ABG Hemoglobin ABG Oxyhemoglobin ABG Sodium ABG Potassium ABG Chloride ABG Glucose Oxyhemoglobin Carboxyhemoglobin Sodium Potassium Chloride Carbon Dioxide BUN Creatinine Glucose POC Glucose 160 H 150 H 181 H Lactic Acid Calcium Magnesium Ferritin Total Bilirubin Direct Bilirubin AST ALT Alkaline Phosphatase Lactate Dehydrogenase C-Reactive Protein Total Protein Albumin Triglycerides Lipase Arterial Blood Glucose Arterial Blood Ionized Calcium Urine WBC (Auto) Coronavirus (PCR) SARS-CoV-2 IgG Ab Crossmatch 06/13/20 06/13/20 06/13/20 14:14 17:48 23:27 WBC 12.8 H RBC 2.33 L Hgb 8.0 L Hct 23.3 L MCV 100 H MCH 34 H MCHC RDW 15.7 H Lymph % (Auto) Armstrong % (Auto) Lymph # (Auto) Armstrong # (Auto) Baso # (Auto) Seg Neutrophils % Seg Neuts % (Manual) 85.0 H Lymphocytes % (Manual) 10.0 L Nucleated RBC % Seg Neutrophils # Seg Neutrophils # Man 10.9 H Lymphocytes # (Manual) Monocytes # (Manual) Eosinophils # (Manual) PT INR APTT D-Dimer Heparin Anti-Xa Level ABG pH POC ABG pCO2 POC ABG pO2 ABG pO2 ABG HCO3 ABG O2 Saturation ABG Base Excess ABG Hemoglobin ABG Oxyhemoglobin ABG Sodium ABG Potassium ABG Chloride ABG Glucose Oxyhemoglobin Carboxyhemoglobin Sodium Potassium Chloride Carbon Dioxide BUN Creatinine Glucose POC Glucose 173 H 154 H Lactic Acid Calcium Magnesium Ferritin Total Bilirubin Direct Bilirubin AST ALT Alkaline Phosphatase Lactate Dehydrogenase C-Reactive Protein Total Protein Albumin Triglycerides Lipase Arterial Blood Glucose Arterial Blood Ionized Calcium Urine WBC (Auto) Coronavirus (PCR) SARS-CoV-2 IgG Ab Crossmatch 06/14/20 06/14/20 06/14/20 03:58 05:21 07:15 WBC 26.2 H RBC 2.97 L Hgb 9.7 L Hct 29.9 L D MCV 101 H MCH 33 H MCHC RDW 15.3 H Lymph % (Auto) Armstrong % (Auto) Lymph # (Auto) Armstrong # (Auto) Baso # (Auto) Seg Neutrophils % Seg Neuts % (Manual) 79.0 H Lymphocytes % (Manual) 5.0 L Nucleated RBC % 3.0 H Seg Neutrophils # Seg Neutrophils # Man 20.7 H Lymphocytes # (Manual) Monocytes # (Manual) 1.3 H Eosinophils # (Manual) PT INR APTT D-Dimer Heparin Anti-Xa Level ABG pH POC ABG pCO2 51.5 H POC ABG pO2 70.0 L ABG pO2 ABG HCO3 ABG O2 Saturation ABG Base Excess ABG Hemoglobin 10.1 L ABG Oxyhemoglobin ABG Sodium 131.5 L ABG Potassium 3.1 L ABG Chloride 93.0 L ABG Glucose 188 H Oxyhemoglobin Carboxyhemoglobin Sodium Potassium Chloride Carbon Dioxide BUN Creatinine Glucose POC Glucose 147 H Lactic Acid Calcium Magnesium Ferritin Total Bilirubin Direct Bilirubin AST ALT Alkaline Phosphatase Lactate Dehydrogenase C-Reactive Protein Total Protein Albumin Triglycerides Lipase Arterial Blood Glucose 188 H Arterial Blood Ionized Calcium Urine WBC (Auto) Coronavirus (PCR) SARS-CoV-2 IgG Ab Crossmatch 06/14/20 06/14/20 06/14/20 07:15 11:30 11:50 WBC RBC Hgb Hct MCV MCH MCHC RDW Lymph % (Auto) Armstrong % (Auto) Lymph # (Auto) Armstrong # (Auto) Baso # (Auto) Seg Neutrophils % Seg Neuts % (Manual) Lymphocytes % (Manual) Nucleated RBC % Seg Neutrophils # Seg Neutrophils # Man Lymphocytes # (Manual) Monocytes # (Manual) Eosinophils # (Manual) PT INR APTT D-Dimer Heparin Anti-Xa Level ABG pH POC ABG pCO2 POC ABG pO2 ABG pO2 ABG HCO3 ABG O2 Saturation ABG Base Excess ABG Hemoglobin ABG Oxyhemoglobin ABG Sodium ABG Potassium ABG Chloride ABG Glucose Oxyhemoglobin Carboxyhemoglobin Sodium 135 L Potassium 3.5 L Chloride 90.4 L Carbon Dioxide 38 H BUN Creatinine 0.5 L Glucose 190 H POC Glucose 176 H Lactic Acid Calcium Magnesium Ferritin 1496.0 H Total Bilirubin Direct Bilirubin AST ALT 81 H Alkaline Phosphatase Lactate Dehydrogenase C-Reactive Protein Total Protein Albumin 2.9 L Triglycerides Lipase Arterial Blood Glucose Arterial Blood Ionized Calcium Urine WBC (Auto) Coronavirus (PCR) SARS-CoV-2 IgG Ab Crossmatch 06/14/20 06/15/20 06/15/20 23:31 04:00 05:00 WBC RBC Hgb Hct MCV MCH MCHC RDW Lymph % (Auto) Armstrong % (Auto) Lymph # (Auto) Armstrong # (Auto) Baso # (Auto) Seg Neutrophils % Seg Neuts % (Manual) Lymphocytes % (Manual) Nucleated RBC % Seg Neutrophils # Seg Neutrophils # Man Lymphocytes # (Manual) Monocytes # (Manual) Eosinophils # (Manual) PT INR APTT D-Dimer Heparin Anti-Xa Level ABG pH POC ABG pCO2 POC ABG pO2 ABG pO2 ABG HCO3 ABG O2 Saturation ABG Base Excess ABG Hemoglobin ABG Oxyhemoglobin ABG Sodium ABG Potassium ABG Chloride ABG Glucose Oxyhemoglobin Carboxyhemoglobin Sodium 133 L Potassium Chloride 91.1 L Carbon Dioxide 34 H BUN Creatinine 0.4 L Glucose 159 H POC Glucose 200 H Lactic Acid Calcium Magnesium Ferritin Total Bilirubin 2.00 H Direct Bilirubin AST 47 H ALT 77 H Alkaline Phosphatase Lactate Dehydrogenase C-Reactive Protein Total Protein Albumin 2.6 L Triglycerides 152 H Lipase Arterial Blood Glucose Arterial Blood Ionized Calcium Urine WBC (Auto) Coronavirus (PCR) SARS-CoV-2 IgG Ab Crossmatch 06/15/20 06/15/20 06/15/20 05:35 06:27 11:38 WBC RBC Hgb Hct MCV MCH MCHC RDW Lymph % (Auto) Armstrong % (Auto) Lymph # (Auto) Armstrong # (Auto) Baso # (Auto) Seg Neutrophils % Seg Neuts % (Manual) Lymphocytes % (Manual) Nucleated RBC % Seg Neutrophils # Seg Neutrophils # Man Lymphocytes # (Manual) Monocytes # (Manual) Eosinophils # (Manual) PT INR APTT D-Dimer Heparin Anti-Xa Level ABG pH POC ABG pCO2 61.0 H POC ABG pO2 67.9 L ABG pO2 ABG HCO3 ABG O2 Saturation ABG Base Excess ABG Hemoglobin 10.4 L ABG Oxyhemoglobin ABG Sodium 132.7 L ABG Potassium 3.3 L ABG Chloride 92.0 L ABG Glucose 158 H Oxyhemoglobin Carboxyhemoglobin Sodium Potassium Chloride Carbon Dioxide BUN Creatinine Glucose POC Glucose 148 H 197 H Lactic Acid Calcium Magnesium Ferritin Total Bilirubin Direct Bilirubin AST ALT Alkaline Phosphatase Lactate Dehydrogenase C-Reactive Protein Total Protein Albumin Triglycerides Lipase Arterial Blood Glucose 158 H Arterial Blood Ionized Calcium Urine WBC (Auto) Coronavirus (PCR) SARS-CoV-2 IgG Ab Crossmatch 06/15/20 06/15/20 06/16/20 17:29 Unknown 00:01 WBC 20.7 H RBC 2.57 L Hgb 8.9 L Hct 25.8 L MCV 101 H MCH 35 H MCHC 35 H RDW 16.0 H Lymph % (Auto) Armstrong % (Auto) Lymph # (Auto) Armstrong # (Auto) Baso # (Auto) Seg Neutrophils % Seg Neuts % (Manual) 83.0 H Lymphocytes % (Manual) 8.0 L Nucleated RBC % Seg Neutrophils # Seg Neutrophils # Man 17.2 H Lymphocytes # (Manual) Monocytes # (Manual) 1.2 H Eosinophils # (Manual) PT INR APTT D-Dimer Heparin Anti-Xa Level ABG pH POC ABG pCO2 POC ABG pO2 ABG pO2 ABG HCO3 ABG O2 Saturation ABG Base Excess ABG Hemoglobin ABG Oxyhemoglobin ABG Sodium ABG Potassium ABG Chloride ABG Glucose Oxyhemoglobin Carboxyhemoglobin Sodium Potassium Chloride Carbon Dioxide BUN Creatinine Glucose POC Glucose 231 H 257 H Lactic Acid Calcium Magnesium Ferritin Total Bilirubin Direct Bilirubin AST ALT Alkaline Phosphatase Lactate Dehydrogenase C-Reactive Protein Total Protein Albumin Triglycerides Lipase Arterial Blood Glucose Arterial Blood Ionized Calcium Urine WBC (Auto) Coronavirus (PCR) SARS-CoV-2 IgG Ab Crossmatch 06/16/20 06/16/20 06/16/20 04:00 04:00 05:22 WBC 13.8 H RBC 2.03 L Hgb 7.6 L Hct 20.7 L MCV 102 H MCH 37 H MCHC 37 H RDW 16.2 H Lymph % (Auto) 4.4 L Armstrong % (Auto) Lymph # (Auto) 0.6 L Armstrong # (Auto) Baso # (Auto) Seg Neutrophils % Seg Neuts % (Manual) Lymphocytes % (Manual) Nucleated RBC % Seg Neutrophils # 12.7 H Seg Neutrophils # Man Lymphocytes # (Manual) Monocytes # (Manual) Eosinophils # (Manual) PT INR APTT D-Dimer Heparin Anti-Xa Level ABG pH POC ABG pCO2 POC ABG pO2 ABG pO2 ABG HCO3 ABG O2 Saturation ABG Base Excess ABG Hemoglobin ABG Oxyhemoglobin ABG Sodium ABG Potassium ABG Chloride ABG Glucose Oxyhemoglobin Carboxyhemoglobin Sodium 130 L Potassium Chloride 88.9 L Carbon Dioxide 36 H BUN Creatinine 0.3 L Glucose 276 H POC Glucose 250 H Lactic Acid Calcium Magnesium Ferritin Total Bilirubin Direct Bilirubin AST ALT Alkaline Phosphatase Lactate Dehydrogenase C-Reactive Protein Total Protein Albumin Triglycerides Lipase Arterial Blood Glucose Arterial Blood Ionized Calcium Urine WBC (Auto) Coronavirus (PCR) SARS-CoV-2 IgG Ab Crossmatch 06/16/20 06/16/20 06/17/20 12:44 18:18 00:39 WBC RBC Hgb Hct MCV MCH MCHC RDW Lymph % (Auto) Armstrong % (Auto) Lymph # (Auto) Armstrong # (Auto) Baso # (Auto) Seg Neutrophils % Seg Neuts % (Manual) Lymphocytes % (Manual) Nucleated RBC % Seg Neutrophils # Seg Neutrophils # Man Lymphocytes # (Manual) Monocytes # (Manual) Eosinophils # (Manual) PT INR APTT D-Dimer Heparin Anti-Xa Level ABG pH POC ABG pCO2 POC ABG pO2 ABG pO2 ABG HCO3 ABG O2 Saturation ABG Base Excess ABG Hemoglobin ABG Oxyhemoglobin ABG Sodium ABG Potassium ABG Chloride ABG Glucose Oxyhemoglobin Carboxyhemoglobin Sodium Potassium Chloride Carbon Dioxide BUN Creatinine Glucose POC Glucose 279 H 239 H 247 H Lactic Acid Calcium Magnesium Ferritin Total Bilirubin Direct Bilirubin AST ALT Alkaline Phosphatase Lactate Dehydrogenase C-Reactive Protein Total Protein Albumin Triglycerides Lipase Arterial Blood Glucose Arterial Blood Ionized Calcium Urine WBC (Auto) Coronavirus (PCR) SARS-CoV-2 IgG Ab Crossmatch 06/17/20 06/17/20 06/17/20 03:40 04:08 10:54 WBC RBC Hgb Hct MCV MCH MCHC RDW Lymph % (Auto) Armstrong % (Auto) Lymph # (Auto) Armstrong # (Auto) Baso # (Auto) Seg Neutrophils % Seg Neuts % (Manual) Lymphocytes % (Manual) Nucleated RBC % Seg Neutrophils # Seg Neutrophils # Man Lymphocytes # (Manual) Monocytes # (Manual) Eosinophils # (Manual) PT INR APTT D-Dimer Heparin Anti-Xa Level ABG pH POC ABG pCO2 65.7 H POC ABG pO2 ABG pO2 ABG HCO3 ABG O2 Saturation ABG Base Excess ABG Hemoglobin 11.9 L ABG Oxyhemoglobin ABG Sodium ABG Potassium ABG Chloride 93.0 L ABG Glucose 244 H Oxyhemoglobin Carboxyhemoglobin Sodium Potassium Chloride Carbon Dioxide BUN Creatinine Glucose POC Glucose 221 H 248 H Lactic Acid Calcium Magnesium Ferritin Total Bilirubin Direct Bilirubin AST ALT Alkaline Phosphatase Lactate Dehydrogenase C-Reactive Protein Total Protein Albumin Triglycerides Lipase Arterial Blood Glucose 244 H Arterial Blood Ionized Calcium Urine WBC (Auto) Coronavirus (PCR) SARS-CoV-2 IgG Ab Crossmatch 06/17/20 06/17/20 06/17/20 17:47 23:11 23:29 WBC RBC Hgb Hct MCV MCH MCHC RDW Lymph % (Auto) [place] % (Auto) Lymph # (Auto) Armstrong # (Auto) Baso # (Auto) Seg Neutrophils % Seg Neuts % (Manual) Lymphocytes % (Manual) Nucleated RBC % Seg Neutrophils # Seg Neutrophils # Man Lymphocytes # (Manual) Monocytes # (Manual) Eosinophils # (Manual) PT INR APTT D-Dimer Heparin Anti-Xa Level ABG pH POC ABG pCO2 85.2 H POC ABG pO2 48.4 L ABG pO2 ABG HCO3 ABG O2 Saturation ABG Base Excess ABG Hemoglobin 8.0 L ABG Oxyhemoglobin ABG Sodium ABG Potassium ABG Chloride 95.0 L ABG Glucose 292 H Oxyhemoglobin Carboxyhemoglobin Sodium Potassium Chloride Carbon Dioxide BUN Creatinine Glucose POC Glucose 245 H 252 H Lactic Acid Calcium Magnesium Ferritin Total Bilirubin Direct Bilirubin AST ALT Alkaline Phosphatase Lactate Dehydrogenase C-Reactive Protein Total Protein Albumin Triglycerides Lipase Arterial Blood Glucose 292 H Arterial Blood Ionized Calcium Urine WBC (Auto) Coronavirus (PCR) SARS-CoV-2 IgG Ab Crossmatch 06/18/20 06/18/20 06/18/20 03:14 05:34 11:47 WBC RBC Hgb Hct MCV MCH MCHC RDW Lymph % (Auto) [place] % (Auto) Lymph # (Auto) Armstrong # (Auto) Baso # (Auto) Seg Neutrophils % Seg Neuts % (Manual) Lymphocytes % (Manual) Nucleated RBC % Seg Neutrophils # Seg Neutrophils # Man Lymphocytes # (Manual) Monocytes # (Manual) Eosinophils # (Manual) PT INR APTT D-Dimer Heparin Anti-Xa Level ABG pH POC ABG pCO2 65.4 H POC ABG pO2 160.7 H ABG pO2 ABG HCO3 ABG O2 Saturation ABG Base Excess ABG Hemoglobin 7.8 L ABG Oxyhemoglobin ABG Sodium ABG Potassium ABG Chloride 95.0 L ABG Glucose 251 H Oxyhemoglobin Carboxyhemoglobin Sodium Potassium Chloride Carbon Dioxide BUN Creatinine Glucose POC Glucose 243 H 263 H Lactic Acid Calcium Magnesium Ferritin Total Bilirubin Direct Bilirubin AST ALT Alkaline Phosphatase Lactate Dehydrogenase C-Reactive Protein Total Protein Albumin Triglycerides Lipase Arterial Blood Glucose 251 H Arterial Blood Ionized Calcium Urine WBC (Auto) Coronavirus (PCR) SARS-CoV-2 IgG Ab Crossmatch 06/18/20 06/18/20 06/19/20 17:31 23:33 04:32 WBC RBC Hgb Hct MCV MCH MCHC RDW Lymph % (Auto) [place] % (Auto) Lymph # (Auto) Armstrong # (Auto) Baso # (Auto) Seg Neutrophils % Seg Neuts % (Manual) Lymphocytes % (Manual) Nucleated RBC % Seg Neutrophils # Seg Neutrophils # Man Lymphocytes # (Manual) Monocytes # (Manual) Eosinophils # (Manual) PT INR APTT D-Dimer Heparin Anti-Xa Level ABG pH POC ABG pCO2 83.1 H POC ABG pO2 65.8 L ABG pO2 ABG HCO3 ABG O2 Saturation ABG Base Excess ABG Hemoglobin 8.9 L ABG Oxyhemoglobin ABG Sodium ABG Potassium ABG Chloride 96.0 L ABG Glucose 297 H Oxyhemoglobin Carboxyhemoglobin Sodium Potassium Chloride Carbon Dioxide BUN Creatinine Glucose POC Glucose 286 H 238 H Lactic Acid Calcium Magnesium Ferritin Total Bilirubin Direct Bilirubin AST ALT Alkaline Phosphatase Lactate Dehydrogenase C-Reactive Protein Total Protein Albumin Triglycerides Lipase Arterial Blood Glucose 297 H Arterial Blood Ionized Calcium Urine WBC (Auto) Coronavirus (PCR) SARS-CoV-2 IgG Ab Crossmatch 06/19/20 06/19/20 06/19/20 05:55 11:20 17:12 WBC RBC Hgb Hct MCV MCH MCHC RDW Lymph % (Auto) [place] % (Auto) Lymph # (Auto) [place] # (Auto) Baso # (Auto) Seg Neutrophils % Seg Neuts % (Manual) Lymphocytes % (Manual) Nucleated RBC % Seg Neutrophils # Seg Neutrophils # Man Lymphocytes # (Manual) Monocytes # (Manual) Eosinophils # (Manual) PT INR APTT D-Dimer Heparin Anti-Xa Level ABG pH POC ABG pCO2 POC ABG pO2 ABG pO2 ABG HCO3 ABG O2 Saturation ABG Base Excess ABG Hemoglobin ABG Oxyhemoglobin ABG Sodium ABG Potassium ABG Chloride ABG Glucose Oxyhemoglobin Carboxyhemoglobin Sodium Potassium Chloride Carbon Dioxide BUN Creatinine Glucose POC Glucose 274 H 282 H 298 H Lactic Acid Calcium Magnesium Ferritin Total Bilirubin Direct Bilirubin AST ALT Alkaline Phosphatase Lactate Dehydrogenase C-Reactive Protein Total Protein Albumin Triglycerides Lipase Arterial Blood Glucose Arterial Blood Ionized Calcium Urine WBC (Auto) Coronavirus (PCR) SARS-CoV-2 IgG Ab Crossmatch 06/19/20 06/20/20 06/20/20 23:08 03:33 06:01 WBC RBC Hgb Hct MCV MCH MCHC RDW Lymph % (Auto) [place] % (Auto) Lymph # (Auto) [place] # (Auto) Baso # (Auto) Seg Neutrophils % Seg Neuts % (Manual) Lymphocytes % (Manual) Nucleated RBC % Seg Neutrophils # Seg Neutrophils # Man Lymphocytes # (Manual) Monocytes # (Manual) Eosinophils # (Manual) PT INR APTT D-Dimer Heparin Anti-Xa Level ABG pH POC ABG pCO2 POC ABG pO2 ABG pO2 69.9 L ABG HCO3 50.8 H ABG O2 Saturation ABG Base Excess 24.2 H ABG Hemoglobin 5.8 L ABG Oxyhemoglobin ABG Sodium ABG Potassium ABG Chloride ABG Glucose Oxyhemoglobin Carboxyhemoglobin Sodium Potassium Chloride Carbon Dioxide BUN Creatinine Glucose POC Glucose 293 H 182 H Lactic Acid Calcium Magnesium Ferritin Total Bilirubin Direct Bilirubin AST ALT Alkaline Phosphatase Lactate Dehydrogenase C-Reactive Protein Total Protein Albumin Triglycerides Lipase Arterial Blood Glucose Arterial Blood Ionized Calcium Urine WBC (Auto) Coronavirus (PCR) SARS-CoV-2 IgG Ab Crossmatch 06/20/20 06/20/20 06/20/20 11:47 17:46 23:37 WBC RBC Hgb Hct MCV MCH MCHC RDW Lymph % (Auto) Armstrong % (Auto) Lymph # (Auto) Armstrong # (Auto) Baso # (Auto) Seg Neutrophils % Seg Neuts % (Manual) Lymphocytes % (Manual) Nucleated RBC % Seg Neutrophils # Seg Neutrophils # Man Lymphocytes # (Manual) Monocytes # (Manual) Eosinophils # (Manual) PT INR APTT D-Dimer Heparin Anti-Xa Level ABG pH POC ABG pCO2 POC ABG pO2 ABG pO2 ABG HCO3 ABG O2 Saturation ABG Base Excess ABG Hemoglobin ABG Oxyhemoglobin ABG Sodium ABG Potassium ABG Chloride ABG Glucose Oxyhemoglobin Carboxyhemoglobin Sodium Potassium Chloride Carbon Dioxide BUN Creatinine Glucose POC Glucose 170 H 215 H 256 H Lactic Acid Calcium Magnesium Ferritin Total Bilirubin Direct Bilirubin AST ALT Alkaline Phosphatase Lactate Dehydrogenase C-Reactive Protein Total Protein Albumin Triglycerides Lipase Arterial Blood Glucose Arterial Blood Ionized Calcium Urine WBC (Auto) Coronavirus (PCR) SARS-CoV-2 IgG Ab Crossmatch 06/21/20 06/21/20 06/21/20 04:00 05:14 05:51 WBC RBC Hgb Hct MCV MCH MCHC RDW Lymph % (Auto) Armstrong % (Auto) Lymph # (Auto) Armstrong # (Auto) Baso # (Auto) Seg Neutrophils % Seg Neuts % (Manual) Lymphocytes % (Manual) Nucleated RBC % Seg Neutrophils # Seg Neutrophils # Man Lymphocytes # (Manual) Monocytes # (Manual) Eosinophils # (Manual) PT INR APTT D-Dimer Heparin Anti-Xa Level ABG pH 7.474 H POC ABG pCO2 POC ABG pO2 ABG pO2 ABG HCO3 52.1 H ABG O2 Saturation ABG Base Excess 23.3 H ABG Hemoglobin 5.3 L ABG Oxyhemoglobin ABG Sodium ABG Potassium ABG Chloride ABG Glucose Oxyhemoglobin 93.8 L Carboxyhemoglobin Sodium Potassium Chloride Carbon Dioxide BUN Creatinine Glucose POC Glucose 122 H 129 H Lactic Acid Calcium Magnesium Ferritin Total Bilirubin Direct Bilirubin AST ALT Alkaline Phosphatase Lactate Dehydrogenase C-Reactive Protein Total Protein Albumin Triglycerides Lipase Arterial Blood Glucose Arterial Blood Ionized Calcium Urine WBC (Auto) Coronavirus (PCR) SARS-CoV-2 IgG Ab Crossmatch 06/21/20 06/21/20 06/21/20 11:00 11:00 11:42 WBC 14.2 H RBC 1.85 L Hgb 6.2 L Hct 19.5 L* MCV 105 H MCH 34 H MCHC RDW 18.0 H Lymph % (Auto) Armstrong % (Auto) Lymph # (Auto) Armstrong # (Auto) Baso # (Auto) Seg Neutrophils % Seg Neuts % (Manual) Lymphocytes % (Manual) Nucleated RBC % Seg Neutrophils # Seg Neutrophils # Man Lymphocytes # (Manual) Monocytes # (Manual) Eosinophils # (Manual) PT INR APTT D-Dimer Heparin Anti-Xa Level ABG pH POC ABG pCO2 POC ABG pO2 ABG pO2 ABG HCO3 ABG O2 Saturation ABG Base Excess ABG Hemoglobin ABG Oxyhemoglobin ABG Sodium ABG Potassium ABG Chloride ABG Glucose Oxyhemoglobin Carboxyhemoglobin Sodium 147 H Potassium Chloride Carbon Dioxide 51 H* BUN 31 H Creatinine 0.5 L Glucose 224 H POC Glucose 217 H Lactic Acid Calcium Magnesium Ferritin Total Bilirubin Direct Bilirubin AST ALT Alkaline Phosphatase Lactate Dehydrogenase C-Reactive Protein Total Protein Albumin Triglycerides Lipase Arterial Blood Glucose Arterial Blood Ionized Calcium Urine WBC (Auto) Coronavirus (PCR) SARS-CoV-2 IgG Ab Crossmatch 06/21/20 06/21/20 06/21/20 14:18 14:30 18:36 WBC RBC Hgb Hct MCV MCH MCHC RDW Lymph % (Auto) Armstrong % (Auto) Lymph # (Auto) Armstrong # (Auto) Baso # (Auto) Seg Neutrophils % Seg Neuts % (Manual) Lymphocytes % (Manual) Nucleated RBC % Seg Neutrophils # Seg Neutrophils # Man Lymphocytes # (Manual) Monocytes # (Manual) Eosinophils # (Manual) PT 15.1 H INR 1.19 H APTT D-Dimer Heparin Anti-Xa Level ABG pH POC ABG pCO2 POC ABG pO2 ABG pO2 ABG HCO3 ABG O2 Saturation ABG Base Excess ABG Hemoglobin ABG Oxyhemoglobin ABG Sodium ABG Potassium ABG Chloride ABG Glucose Oxyhemoglobin Carboxyhemoglobin Sodium Potassium Chloride Carbon Dioxide BUN Creatinine Glucose POC Glucose 185 H Lactic Acid Calcium Magnesium Ferritin Total Bilirubin Direct Bilirubin AST ALT Alkaline Phosphatase Lactate Dehydrogenase C-Reactive Protein Total Protein Albumin Triglycerides Lipase Arterial Blood Glucose Arterial Blood Ionized Calcium Urine WBC (Auto) Coronavirus (PCR) SARS-CoV-2 IgG Ab Crossmatch See Detail 06/21/20 06/22/20 06/22/20 21:14 03:50 04:00 WBC RBC Hgb Hct MCV MCH MCHC RDW Lymph % (Auto) Armstrong % (Auto) Lymph # (Auto) Armstrong # (Auto) Baso # (Auto) Seg Neutrophils % Seg Neuts % (Manual) Lymphocytes % (Manual) Nucleated RBC % Seg Neutrophils # Seg Neutrophils # Man Lymphocytes # (Manual) Monocytes # (Manual) Eosinophils # (Manual) PT INR APTT D-Dimer Heparin Anti-Xa Level ABG pH 7.451 H POC ABG pCO2 POC ABG pO2 ABG pO2 ABG HCO3 47.5 H ABG O2 Saturation ABG Base Excess 22.0 H ABG Hemoglobin < 5.1 L ABG Oxyhemoglobin ABG Sodium ABG Potassium ABG Chloride ABG Glucose Oxyhemoglobin 94.1 L Carboxyhemoglobin Sodium 149 H Potassium 3.5 L Chloride Carbon Dioxide 42 H* D BUN 34 H Creatinine 0.4 L Glucose 219 H POC Glucose 250 H Lactic Acid Calcium Magnesium Ferritin Total Bilirubin Direct Bilirubin AST ALT Alkaline Phosphatase Lactate Dehydrogenase C-Reactive Protein Total Protein Albumin Triglycerides Lipase Arterial Blood Glucose Arterial Blood Ionized Calcium Urine WBC (Auto) Coronavirus (PCR) SARS-CoV-2 IgG Ab Crossmatch 06/22/20 06/22/20 06/22/20 12:16 14:29 17:56 WBC RBC Hgb Hct MCV MCH MCHC RDW Lymph % (Auto) Armstrong % (Auto) Lymph # (Auto) Armstrong # (Auto) Baso # (Auto) Seg Neutrophils % Seg Neuts % (Manual) Lymphocytes % (Manual) Nucleated RBC % Seg Neutrophils # Seg Neutrophils # Man Lymphocytes # (Manual) Monocytes # (Manual) Eosinophils # (Manual) PT 11.8 L INR APTT 23.5 L D-Dimer Heparin Anti-Xa Level ABG pH POC ABG pCO2 POC ABG pO2 ABG pO2 ABG HCO3 ABG O2 Saturation ABG Base Excess ABG Hemoglobin ABG Oxyhemoglobin ABG Sodium ABG Potassium ABG Chloride ABG Glucose Oxyhemoglobin Carboxyhemoglobin Sodium Potassium Chloride Carbon Dioxide BUN Creatinine Glucose POC Glucose 215 H 215 H Lactic Acid Calcium Magnesium Ferritin Total Bilirubin Direct Bilirubin AST ALT Alkaline Phosphatase Lactate Dehydrogenase C-Reactive Protein Total Protein Albumin Triglycerides Lipase Arterial Blood Glucose Arterial Blood Ionized Calcium Urine WBC (Auto) Coronavirus (PCR) SARS-CoV-2 IgG Ab Crossmatch 06/22/20 06/22/20 06/22/20 23:36 23:45 Unknown WBC 14.1 H RBC 2.70 L Hgb 8.9 L 8.9 L Hct 26.9 L 27.2 L D MCV 101 H MCH 33 H MCHC RDW 17.7 H Lymph % (Auto) Armstrong % (Auto) Lymph # (Auto) Armstrong # (Auto) Baso # (Auto) Seg Neutrophils % Seg Neuts % (Manual) 92.0 H Lymphocytes % (Manual) 5.0 L Nucleated RBC % Seg Neutrophils # Seg Neutrophils # Man 13.0 H Lymphocytes # (Manual) 0.7 L Monocytes # (Manual) Eosinophils # (Manual) PT INR APTT D-Dimer Heparin Anti-Xa Level ABG pH POC ABG pCO2 POC ABG pO2 ABG pO2 ABG HCO3 ABG O2 Saturation ABG Base Excess ABG Hemoglobin ABG Oxyhemoglobin ABG Sodium ABG Potassium ABG Chloride ABG Glucose Oxyhemoglobin Carboxyhemoglobin Sodium Potassium Chloride Carbon Dioxide BUN Creatinine Glucose POC Glucose 208 H Lactic Acid Calcium Magnesium Ferritin Total Bilirubin Direct Bilirubin AST ALT Alkaline Phosphatase Lactate Dehydrogenase C-Reactive Protein Total Protein Albumin Triglycerides Lipase Arterial Blood Glucose Arterial Blood Ionized Calcium Urine WBC (Auto) Coronavirus (PCR) SARS-CoV-2 IgG Ab Crossmatch 06/23/20 06/23/20 06/23/20 05:17 05:19 06:50 WBC RBC Hgb Hct MCV MCH MCHC RDW Lymph % (Auto) Armstrong % (Auto) Lymph # (Auto) Armstrong # (Auto) Baso # (Auto) Seg Neutrophils % Seg Neuts % (Manual) Lymphocytes % (Manual) Nucleated RBC % Seg Neutrophils # Seg Neutrophils # Man Lymphocytes # (Manual) Monocytes # (Manual) Eosinophils # (Manual) PT INR APTT D-Dimer Heparin Anti-Xa Level ABG pH POC ABG pCO2 69.7 H POC ABG pO2 63.3 L ABG pO2 ABG HCO3 ABG O2 Saturation ABG Base Excess ABG Hemoglobin 10.1 L ABG Oxyhemoglobin ABG Sodium ABG Potassium 3.3 L ABG Chloride ABG Glucose 226 H Oxyhemoglobin Carboxyhemoglobin Sodium Potassium 3.0 L Chloride Carbon Dioxide 41 H* BUN 26 H Creatinine 0.4 L Glucose 209 H POC Glucose 200 H Lactic Acid Calcium Magnesium Ferritin Total Bilirubin Direct Bilirubin AST ALT Alkaline Phosphatase Lactate Dehydrogenase C-Reactive Protein Total Protein Albumin 2.9 L Triglycerides Lipase Arterial Blood Glucose 226 H Arterial Blood Ionized Calcium Urine WBC (Auto) Coronavirus (PCR) SARS-CoV-2 IgG Ab Crossmatch 06/23/20 06/23/20 06/23/20 09:41 12:04 18:16 WBC RBC Hgb 9.1 L Hct 28.0 L MCV MCH MCHC RDW Lymph % (Auto) Armstrong % (Auto) Lymph # (Auto) Armstrong # (Auto) Baso # (Auto) Seg Neutrophils % Seg Neuts % (Manual) Lymphocytes % (Manual) Nucleated RBC % Seg Neutrophils # Seg Neutrophils # Man Lymphocytes # (Manual) Monocytes # (Manual) Eosinophils # (Manual) PT INR APTT D-Dimer Heparin Anti-Xa Level ABG pH POC ABG pCO2 POC ABG pO2 ABG pO2 ABG HCO3 ABG O2 Saturation ABG Base Excess ABG Hemoglobin ABG Oxyhemoglobin ABG Sodium ABG Potassium ABG Chloride ABG Glucose Oxyhemoglobin Carboxyhemoglobin Sodium Potassium Chloride Carbon Dioxide BUN Creatinine Glucose POC Glucose 146 H 162 H Lactic Acid Calcium Magnesium Ferritin Total Bilirubin Direct Bilirubin AST ALT Alkaline Phosphatase Lactate Dehydrogenase C-Reactive Protein Total Protein Albumin Triglycerides Lipase Arterial Blood Glucose Arterial Blood Ionized Calcium Urine WBC (Auto) Coronavirus (PCR) SARS-CoV-2 IgG Ab Crossmatch 06/23/20 06/23/20 06/24/20 23:24 23:41 02:39 WBC RBC Hgb 8.2 L 8.8 L Hct 24.9 L 26.8 L MCV MCH MCHC RDW Lymph % (Auto) Armstrong % (Auto) Lymph # (Auto) Armstrong # (Auto) Baso # (Auto) Seg Neutrophils % Seg Neuts % (Manual) Lymphocytes % (Manual) Nucleated RBC % Seg Neutrophils # Seg Neutrophils # Man Lymphocytes # (Manual) Monocytes # (Manual) Eosinophils # (Manual) PT INR APTT D-Dimer Heparin Anti-Xa Level ABG pH POC ABG pCO2 POC ABG pO2 ABG pO2 ABG HCO3 ABG O2 Saturation ABG Base Excess ABG Hemoglobin ABG Oxyhemoglobin ABG Sodium ABG Potassium ABG Chloride ABG Glucose Oxyhemoglobin Carboxyhemoglobin Sodium Potassium Chloride Carbon Dioxide BUN Creatinine Glucose POC Glucose 248 H Lactic Acid Calcium Magnesium Ferritin Total Bilirubin Direct Bilirubin AST ALT Alkaline Phosphatase Lactate Dehydrogenase C-Reactive Protein Total Protein Albumin Triglycerides Lipase Arterial Blood Glucose Arterial Blood Ionized Calcium Urine WBC (Auto) Coronavirus (PCR) SARS-CoV-2 IgG Ab Crossmatch 06/24/20 06/24/20 06/24/20 02:39 02:45 05:31 WBC RBC Hgb Hct MCV MCH MCHC RDW Lymph % (Auto) Armstrong % (Auto) Lymph # (Auto) Armstrong # (Auto) Baso # (Auto) Seg Neutrophils % Seg Neuts % (Manual) Lymphocytes % (Manual) Nucleated RBC % Seg Neutrophils # Seg Neutrophils # Man Lymphocytes # (Manual) Monocytes # (Manual) Eosinophils # (Manual) PT INR APTT D-Dimer Heparin Anti-Xa Level ABG pH POC ABG pCO2 66.9 H POC ABG pO2 109.7 H ABG pO2 ABG HCO3 ABG O2 Saturation ABG Base Excess ABG Hemoglobin 9.7 L ABG Oxyhemoglobin ABG Sodium 135.0 L ABG Potassium ABG Chloride 97.0 L ABG Glucose 277 H Oxyhemoglobin Carboxyhemoglobin Sodium 136 L Potassium Chloride 95.0 L Carbon Dioxide 34 H D BUN 24 H Creatinine 0.3 L Glucose 260 H POC Glucose 164 H Lactic Acid Calcium Magnesium Ferritin Total Bilirubin Direct Bilirubin AST ALT Alkaline Phosphatase Lactate Dehydrogenase C-Reactive Protein Total Protein 5.2 L Albumin 2.6 L Triglycerides Lipase Arterial Blood Glucose 277 H Arterial Blood Ionized Calcium Urine WBC (Auto) Coronavirus (PCR) SARS-CoV-2 IgG Ab Crossmatch 06/24/20 06/24/20 06/24/20 10:00 11:49 17:39 WBC RBC Hgb 8.9 L Hct 26.5 L MCV MCH MCHC RDW Lymph % (Auto) Armstrong % (Auto) Lymph # (Auto) Armstrong # (Auto) Baso # (Auto) Seg Neutrophils % Seg Neuts % (Manual) Lymphocytes % (Manual) Nucleated RBC % Seg Neutrophils # Seg Neutrophils # Man Lymphocytes # (Manual) Monocytes # (Manual) Eosinophils # (Manual) PT INR APTT D-Dimer Heparin Anti-Xa Level ABG pH POC ABG pCO2 POC ABG pO2 ABG pO2 ABG HCO3 ABG O2 Saturation ABG Base Excess ABG Hemoglobin ABG Oxyhemoglobin ABG Sodium ABG Potassium ABG Chloride ABG Glucose Oxyhemoglobin Carboxyhemoglobin Sodium Potassium Chloride Carbon Dioxide BUN Creatinine Glucose POC Glucose 198 H 223 H Lactic Acid Calcium Magnesium Ferritin Total Bilirubin Direct Bilirubin AST ALT Alkaline Phosphatase Lactate Dehydrogenase C-Reactive Protein Total Protein Albumin Triglycerides Lipase Arterial Blood Glucose Arterial Blood Ionized Calcium Urine WBC (Auto) Coronavirus (PCR) SARS-CoV-2 IgG Ab Crossmatch 06/24/20 06/25/20 06/25/20 23:56 02:16 04:08 WBC RBC Hgb Hct MCV MCH MCHC RDW Lymph % (Auto) Armstrong % (Auto) Lymph # (Auto) Armstrong # (Auto) Baso # (Auto) Seg Neutrophils % Seg Neuts % (Manual) Lymphocytes % (Manual) Nucleated RBC % Seg Neutrophils # Seg Neutrophils # Man Lymphocytes # (Manual) Monocytes # (Manual) Eosinophils # (Manual) PT INR APTT D-Dimer Heparin Anti-Xa Level ABG pH 7.454 H POC ABG pCO2 56.9 H POC ABG pO2 61.0 L ABG pO2 ABG HCO3 ABG O2 Saturation ABG Base Excess ABG Hemoglobin ABG Oxyhemoglobin ABG Sodium 134.3 L ABG Potassium ABG Chloride 92.0 L ABG Glucose 246 H Oxyhemoglobin Carboxyhemoglobin Sodium 134 L Potassium Chloride 89.7 L Carbon Dioxide 36 H BUN Creatinine 0.3 L Glucose 254 H POC Glucose 225 H Lactic Acid Calcium Magnesium Ferritin Total Bilirubin Direct Bilirubin AST ALT Alkaline Phosphatase Lactate Dehydrogenase C-Reactive Protein Total Protein Albumin 2.9 L Triglycerides Lipase Arterial Blood Glucose 246 H Arterial Blood Ionized Calcium Urine WBC (Auto) Coronavirus (PCR) SARS-CoV-2 IgG Ab Crossmatch 06/25/20 06/25/20 06/25/20 05:44 11:35 17:33 WBC RBC Hgb Hct MCV MCH MCHC RDW Lymph % (Auto) Armstrong % (Auto) Lymph # (Auto) Armstrong # (Auto) Baso # (Auto) Seg Neutrophils % Seg Neuts % (Manual) Lymphocytes % (Manual) Nucleated RBC % Seg Neutrophils # Seg Neutrophils # Man Lymphocytes # (Manual) Monocytes # (Manual) Eosinophils # (Manual) PT INR APTT D-Dimer Heparin Anti-Xa Level ABG pH POC ABG pCO2 POC ABG pO2 ABG pO2 ABG HCO3 ABG O2 Saturation ABG Base Excess ABG Hemoglobin ABG Oxyhemoglobin ABG Sodium ABG Potassium ABG Chloride ABG Glucose Oxyhemoglobin Carboxyhemoglobin Sodium Potassium Chloride Carbon Dioxide BUN Creatinine Glucose POC Glucose 170 H 175 H 229 H Lactic Acid Calcium Magnesium Ferritin Total Bilirubin Direct Bilirubin AST ALT Alkaline Phosphatase Lactate Dehydrogenase C-Reactive Protein Total Protein Albumin Triglycerides Lipase Arterial Blood Glucose Arterial Blood Ionized Calcium Urine WBC (Auto) Coronavirus (PCR) SARS-CoV-2 IgG Ab Crossmatch 06/25/20 06/26/20 06/26/20 23:55 02:17 02:17 WBC RBC Hgb 10.0 L Hct 30.4 L MCV MCH MCHC RDW Lymph % (Auto) Armstrong % (Auto) Lymph # (Auto) Armstrong # (Auto) Baso # (Auto) Seg Neutrophils % Seg Neuts % (Manual) Lymphocytes % (Manual) Nucleated RBC % Seg Neutrophils # Seg Neutrophils # Man Lymphocytes # (Manual) Monocytes # (Manual) Eosinophils # (Manual) PT INR APTT D-Dimer Heparin Anti-Xa Level ABG pH POC ABG pCO2 POC ABG pO2 ABG pO2 ABG HCO3 ABG O2 Saturation ABG Base Excess ABG Hemoglobin ABG Oxyhemoglobin ABG Sodium ABG Potassium ABG Chloride ABG Glucose Oxyhemoglobin Carboxyhemoglobin Sodium 136 L Potassium Chloride 90.1 L Carbon Dioxide 39 H BUN Creatinine 0.2 L Glucose 232 H POC Glucose 192 H Lactic Acid Calcium Magnesium Ferritin Total Bilirubin Direct Bilirubin AST ALT Alkaline Phosphatase Lactate Dehydrogenase C-Reactive Protein Total Protein 6.1 L Albumin 2.9 L Triglycerides Lipase Arterial Blood Glucose Arterial Blood Ionized Calcium Urine WBC (Auto) Coronavirus (PCR) SARS-CoV-2 IgG Ab Crossmatch 06/26/20 06/26/20 06/26/20 04:15 04:49 05:28 WBC RBC Hgb Hct MCV MCH MCHC RDW Lymph % (Auto) Armstrong % (Auto) Lymph # (Auto) Armstrong # (Auto) Baso # (Auto) Seg Neutrophils % Seg Neuts % (Manual) Lymphocytes % (Manual) Nucleated RBC % Seg Neutrophils # Seg Neutrophils # Man Lymphocytes # (Manual) Monocytes # (Manual) Eosinophils # (Manual) PT INR APTT D-Dimer Heparin Anti-Xa Level ABG pH 7.453 H POC ABG pCO2 59.6 H POC ABG pO2 ABG pO2 ABG HCO3 ABG O2 Saturation ABG Base Excess ABG Hemoglobin 10.0 L ABG Oxyhemoglobin ABG Sodium 134.2 L ABG Potassium 3.3 L ABG Chloride 92.0 L ABG Glucose 305 H Oxyhemoglobin Carboxyhemoglobin Sodium Potassium Chloride Carbon Dioxide BUN Creatinine Glucose POC Glucose 234 H Lactic Acid Calcium Magnesium Ferritin Total Bilirubin Direct Bilirubin AST ALT Alkaline Phosphatase Lactate Dehydrogenase C-Reactive Protein Total Protein Albumin Triglycerides 203 H Lipase Arterial Blood Glucose 305 H Arterial Blood Ionized Calcium Urine WBC (Auto) Coronavirus (PCR) SARS-CoV-2 IgG Ab Crossmatch 06/26/20 06/26/20 06/26/20 11:58 17:58 21:32 WBC RBC Hgb Hct MCV MCH MCHC RDW Lymph % (Auto) Armstrong % (Auto) Lymph # (Auto) Armstrong # (Auto) Baso # (Auto) Seg Neutrophils % Seg Neuts % (Manual) Lymphocytes % (Manual) Nucleated RBC % Seg Neutrophils # Seg Neutrophils # Man Lymphocytes # (Manual) Monocytes # (Manual) Eosinophils # (Manual) PT INR APTT D-Dimer Heparin Anti-Xa Level ABG pH POC ABG pCO2 POC ABG pO2 ABG pO2 ABG HCO3 ABG O2 Saturation ABG Base Excess ABG Hemoglobin ABG Oxyhemoglobin ABG Sodium ABG Potassium ABG Chloride ABG Glucose Oxyhemoglobin Carboxyhemoglobin Sodium Potassium Chloride Carbon Dioxide BUN Creatinine Glucose POC Glucose 198 H 193 H 191 H Lactic Acid Calcium Magnesium Ferritin Total Bilirubin Direct Bilirubin AST ALT Alkaline Phosphatase Lactate Dehydrogenase C-Reactive Protein Total Protein Albumin Triglycerides Lipase Arterial Blood Glucose Arterial Blood Ionized Calcium Urine WBC (Auto) Coronavirus (PCR) SARS-CoV-2 IgG Ab Crossmatch 06/26/20 06/27/20 06/27/20 23:40 04:35 05:32 WBC RBC Hgb Hct MCV MCH MCHC RDW Lymph % (Auto) Armstrong % (Auto) Lymph # (Auto) Armstrong # (Auto) Baso # (Auto) Seg Neutrophils % Seg Neuts % (Manual) Lymphocytes % (Manual) Nucleated RBC % Seg Neutrophils # Seg Neutrophils # Man Lymphocytes # (Manual) Monocytes # (Manual) Eosinophils # (Manual) PT INR APTT D-Dimer Heparin Anti-Xa Level ABG pH 7.464 H POC ABG pCO2 60.8 H POC ABG pO2 ABG pO2 ABG HCO3 ABG O2 Saturation ABG Base Excess ABG Hemoglobin 10.1 L ABG Oxyhemoglobin ABG Sodium ABG Potassium 2.9 L ABG Chloride 92.0 L ABG Glucose 298 H Oxyhemoglobin Carboxyhemoglobin Sodium Potassium Chloride Carbon Dioxide BUN Creatinine Glucose POC Glucose 241 H 211 H Lactic Acid Calcium Magnesium Ferritin Total Bilirubin Direct Bilirubin AST ALT Alkaline Phosphatase Lactate Dehydrogenase C-Reactive Protein Total Protein Albumin Triglycerides Lipase Arterial Blood Glucose 298 H Arterial Blood Ionized Calcium Urine WBC (Auto) Coronavirus (PCR) SARS-CoV-2 IgG Ab Crossmatch 06/27/20 06/27/20 06/27/20 12:37 18:08 20:52 WBC RBC Hgb Hct MCV MCH MCHC RDW Lymph % (Auto) Armstrong % (Auto) Lymph # (Auto) Armstrong # (Auto) Baso # (Auto) Seg Neutrophils % Seg Neuts % (Manual) Lymphocytes % (Manual) Nucleated RBC % Seg Neutrophils # Seg Neutrophils # Man Lymphocytes # (Manual) Monocytes # (Manual) Eosinophils # (Manual) PT INR APTT D-Dimer Heparin Anti-Xa Level ABG pH POC ABG pCO2 POC ABG pO2 ABG pO2 ABG HCO3 ABG O2 Saturation ABG Base Excess ABG Hemoglobin ABG Oxyhemoglobin ABG Sodium ABG Potassium ABG Chloride ABG Glucose Oxyhemoglobin Carboxyhemoglobin Sodium Potassium Chloride Carbon Dioxide BUN Creatinine Glucose POC Glucose 182 H 197 H 195 H Lactic Acid Calcium Magnesium Ferritin Total Bilirubin Direct Bilirubin AST ALT Alkaline Phosphatase Lactate Dehydrogenase C-Reactive Protein Total Protein Albumin Triglycerides Lipase Arterial Blood Glucose Arterial Blood Ionized Calcium Urine WBC (Auto) Coronavirus (PCR) SARS-CoV-2 IgG Ab Crossmatch 06/27/20 06/28/20 06/28/20 Unknown 04:17 04:50 WBC RBC Hgb Hct MCV MCH MCHC RDW Lymph % (Auto) [place] % (Auto) Lymph # (Auto) Armstrong # (Auto) Baso # (Auto) Seg Neutrophils % Seg Neuts % (Manual) Lymphocytes % (Manual) Nucleated RBC % Seg Neutrophils # Seg Neutrophils # Man Lymphocytes # (Manual) Monocytes # (Manual) Eosinophils # (Manual) PT INR APTT D-Dimer Heparin Anti-Xa Level ABG pH POC ABG pCO2 58.6 H POC ABG pO2 60.1 L ABG pO2 ABG HCO3 ABG O2 Saturation ABG Base Excess ABG Hemoglobin 10.0 L ABG Oxyhemoglobin ABG Sodium 125.3 L ABG Potassium ABG Chloride 93.0 L ABG Glucose 308 H Oxyhemoglobin Carboxyhemoglobin Sodium Potassium 2.9 L* Chloride 93.4 L Carbon Dioxide 42 H* BUN Creatinine 0.3 L Glucose 211 H POC Glucose 252 H Lactic Acid Calcium 8.1 L Magnesium Ferritin Total Bilirubin Direct Bilirubin AST ALT Alkaline Phosphatase Lactate Dehydrogenase C-Reactive Protein Total Protein 5.1 L Albumin 2.4 L Triglycerides Lipase Arterial Blood Glucose 308 H Arterial Blood Ionized Calcium Urine WBC (Auto) Coronavirus (PCR) SARS-CoV-2 IgG Ab Crossmatch 06/28/20 06/28/20 06/28/20 06:35 06:35 11:36 WBC 18.9 H RBC 2.85 L Hgb 9.5 L Hct 28.4 L MCV 100 H MCH 33 H MCHC RDW 17.3 H Lymph % (Auto) Armstrong % (Auto) Lymph # (Auto) Armstrong # (Auto) Baso # (Auto) Seg Neutrophils % 88.6 H Seg Neuts % (Manual) 95.0 H Lymphocytes % (Manual) 1.0 L Nucleated RBC % Seg Neutrophils # 15.9 H Seg Neutrophils # Man 18.0 H Lymphocytes # (Manual) 0.2 L Monocytes # (Manual) Eosinophils # (Manual) PT INR APTT D-Dimer Heparin Anti-Xa Level ABG pH POC ABG pCO2 POC ABG pO2 ABG pO2 ABG HCO3 ABG O2 Saturation ABG Base Excess ABG Hemoglobin ABG Oxyhemoglobin ABG Sodium ABG Potassium ABG Chloride ABG Glucose Oxyhemoglobin Carboxyhemoglobin Sodium Potassium Chloride 94.2 L Carbon Dioxide 38 H BUN Creatinine 0.3 L Glucose 228 H POC Glucose 243 H Lactic Acid Calcium Magnesium Ferritin Total Bilirubin Direct Bilirubin AST ALT Alkaline Phosphatase Lactate Dehydrogenase C-Reactive Protein Total Protein 6.1 L Albumin 2.7 L Triglycerides Lipase Arterial Blood Glucose Arterial Blood Ionized Calcium Urine WBC (Auto) Coronavirus (PCR) SARS-CoV-2 IgG Ab Crossmatch 06/28/20 06/28/20 06/29/20 16:53 21:10 00:06 WBC RBC Hgb Hct MCV MCH MCHC RDW Lymph % (Auto) [place] % (Auto) Lymph # (Auto) Armstrong # (Auto) Baso # (Auto) Seg Neutrophils % Seg Neuts % (Manual) Lymphocytes % (Manual) Nucleated RBC % Seg Neutrophils # Seg Neutrophils # Man Lymphocytes # (Manual) Monocytes # (Manual) Eosinophils # (Manual) PT INR APTT D-Dimer Heparin Anti-Xa Level ABG pH POC ABG pCO2 POC ABG pO2 ABG pO2 ABG HCO3 ABG O2 Saturation ABG Base Excess ABG Hemoglobin ABG Oxyhemoglobin ABG Sodium ABG Potassium ABG Chloride ABG Glucose Oxyhemoglobin Carboxyhemoglobin Sodium Potassium Chloride Carbon Dioxide BUN Creatinine Glucose POC Glucose 211 H 195 H 200 H Lactic Acid Calcium Magnesium Ferritin Total Bilirubin Direct Bilirubin AST ALT Alkaline Phosphatase Lactate Dehydrogenase C-Reactive Protein Total Protein Albumin Triglycerides Lipase Arterial Blood Glucose Arterial Blood Ionized Calcium Urine WBC (Auto) Coronavirus (PCR) SARS-CoV-2 IgG Ab Crossmatch 06/29/20 06/29/20 06/29/20 03:11 04:00 04:00 WBC 18.8 H RBC 2.82 L Hgb 10.1 L Hct 28.5 L MCV 101 H MCH 36 H MCHC 36 H RDW 17.5 H Lymph % (Auto) 10.7 L [place] % (Auto) Lymph # (Auto) Armstrong # (Auto) 1.0 H Baso # (Auto) 0.3 H Seg Neutrophils % 82.2 H Seg Neuts % (Manual) Lymphocytes % (Manual) Nucleated RBC % Seg Neutrophils # 15.5 H Seg Neutrophils # Man Lymphocytes # (Manual) Monocytes # (Manual) Eosinophils # (Manual) PT INR APTT D-Dimer Heparin Anti-Xa Level ABG pH POC ABG pCO2 57.5 H POC ABG pO2 69.1 L ABG pO2 ABG HCO3 ABG O2 Saturation ABG Base Excess ABG Hemoglobin 10.2 L ABG Oxyhemoglobin 92.3 L ABG Sodium 130.7 L ABG Potassium 3.2 L ABG Chloride 93.0 L ABG Glucose 228 H Oxyhemoglobin Carboxyhemoglobin Sodium 134 L Potassium 3.3 L Chloride 89.5 L Carbon Dioxide 40 H BUN Creatinine 0.2 L Glucose 190 H POC Glucose Lactic Acid Calcium Magnesium Ferritin Total Bilirubin Direct Bilirubin AST < 5 L ALT < 5 L Alkaline Phosphatase Lactate Dehydrogenase C-Reactive Protein Total Protein 5.9 L Albumin 2.2 L Triglycerides Lipase Arterial Blood Glucose 228 H Arterial Blood Ionized Calcium Urine WBC (Auto) Coronavirus (PCR) SARS-CoV-2 IgG Ab Crossmatch 06/29/20 06/29/20 06/29/20 05:00 05:23 09:36 WBC RBC Hgb Hct MCV MCH MCHC RDW Lymph % (Auto) Armstrong % (Auto) Lymph # (Auto) Armstrong # (Auto) Baso # (Auto) Seg Neutrophils % Seg Neuts % (Manual) Lymphocytes % (Manual) Nucleated RBC % Seg Neutrophils # Seg Neutrophils # Man Lymphocytes # (Manual) Monocytes # (Manual) Eosinophils # (Manual) PT INR APTT D-Dimer Heparin Anti-Xa Level ABG pH POC ABG pCO2 POC ABG pO2 ABG pO2 ABG HCO3 ABG O2 Saturation ABG Base Excess ABG Hemoglobin ABG Oxyhemoglobin ABG Sodium ABG Potassium ABG Chloride ABG Glucose Oxyhemoglobin Carboxyhemoglobin Sodium Potassium Chloride Carbon Dioxide BUN Creatinine Glucose POC Glucose 165 H Lactic Acid Calcium Magnesium Ferritin Total Bilirubin Direct Bilirubin AST ALT Alkaline Phosphatase Lactate Dehydrogenase C-Reactive Protein Total Protein Albumin Triglycerides 1544 H 1799 H Lipase Arterial Blood Glucose Arterial Blood Ionized Calcium Urine WBC (Auto) Coronavirus (PCR) SARS-CoV-2 IgG Ab Crossmatch 06/29/20 06/29/20 06/29/20 09:36 12:02 18:00 WBC RBC Hgb Hct MCV MCH MCHC RDW Lymph % (Auto) Armstrong % (Auto) Lymph # (Auto) Armstrong # (Auto) Baso # (Auto) Seg Neutrophils % Seg Neuts % (Manual) Lymphocytes % (Manual) Nucleated RBC % Seg Neutrophils # Seg Neutrophils # Man Lymphocytes # (Manual) Monocytes # (Manual) Eosinophils # (Manual) PT INR APTT D-Dimer Heparin Anti-Xa Level ABG pH POC ABG pCO2 POC ABG pO2 ABG pO2 ABG HCO3 ABG O2 Saturation ABG Base Excess ABG Hemoglobin ABG Oxyhemoglobin ABG Sodium ABG Potassium ABG Chloride ABG Glucose Oxyhemoglobin Carboxyhemoglobin Sodium Potassium Chloride Carbon Dioxide BUN Creatinine Glucose POC Glucose 197 H 187 H Lactic Acid Calcium Magnesium Ferritin Total Bilirubin Direct Bilirubin AST ALT Alkaline Phosphatase Lactate Dehydrogenase C-Reactive Protein Total Protein Albumin Triglycerides Lipase 86 H Arterial Blood Glucose Arterial Blood Ionized Calcium Urine WBC (Auto) Coronavirus (PCR) SARS-CoV-2 IgG Ab Crossmatch 06/29/20 06/30/20 06/30/20 23:33 03:46 05:50 WBC RBC Hgb Hct MCV MCH MCHC RDW Lymph % (Auto) Armstrong % (Auto) Lymph # (Auto) Armstrong # (Auto) Baso # (Auto) Seg Neutrophils % Seg Neuts % (Manual) Lymphocytes % (Manual) Nucleated RBC % Seg Neutrophils # Seg Neutrophils # Man Lymphocytes # (Manual) Monocytes # (Manual) Eosinophils # (Manual) PT INR APTT D-Dimer Heparin Anti-Xa Level ABG pH 7.466 H POC ABG pCO2 57.3 H POC ABG pO2 66.1 L ABG pO2 ABG HCO3 ABG O2 Saturation ABG Base Excess ABG Hemoglobin 10.2 L ABG Oxyhemoglobin 92.3 L ABG Sodium 134.4 L ABG Potassium 3.2 L ABG Chloride 94.0 L ABG Glucose 178 H Oxyhemoglobin Carboxyhemoglobin Sodium Potassium Chloride Carbon Dioxide BUN Creatinine Glucose POC Glucose 170 H 170 H Lactic Acid Calcium Magnesium Ferritin Total Bilirubin Direct Bilirubin AST ALT Alkaline Phosphatase Lactate Dehydrogenase C-Reactive Protein Total Protein Albumin Triglycerides Lipase Arterial Blood Glucose 178 H Arterial Blood Ionized Calcium Urine WBC (Auto) Coronavirus (PCR) SARS-CoV-2 IgG Ab Crossmatch 06/30/20 06/30/20 06/30/20 07:00 07:00 12:04 WBC 15.6 H RBC 2.91 L Hgb 9.8 L Hct 29.7 L MCV 102 H MCH 34 H MCHC RDW 17.8 H Lymph % (Auto) Armstrong % (Auto) Lymph # (Auto) Armstrong # (Auto) Baso # (Auto) Seg Neutrophils % Seg Neuts % (Manual) Lymphocytes % (Manual) 5.0 L Nucleated RBC % Seg Neutrophils # Seg Neutrophils # Man 14.8 H Lymphocytes # (Manual) 0.8 L Monocytes # (Manual) Eosinophils # (Manual) PT INR APTT D-Dimer Heparin Anti-Xa Level ABG pH POC ABG pCO2 POC ABG pO2 ABG pO2 ABG HCO3 ABG O2 Saturation ABG Base Excess ABG Hemoglobin ABG Oxyhemoglobin ABG Sodium ABG Potassium ABG Chloride ABG Glucose Oxyhemoglobin Carboxyhemoglobin Sodium Potassium Chloride 93.3 L Carbon Dioxide 43 H* BUN Creatinine 0.3 L Glucose 260 H POC Glucose 245 H Lactic Acid Calcium Magnesium Ferritin Total Bilirubin Direct Bilirubin AST ALT Alkaline Phosphatase Lactate Dehydrogenase C-Reactive Protein Total Protein Albumin 2.8 L Triglycerides 452 H Lipase Arterial Blood Glucose Arterial Blood Ionized Calcium Urine WBC (Auto) Coronavirus (PCR) SARS-CoV-2 IgG Ab Crossmatch 06/30/20 07/01/20 07/01/20 17:32 00:02 05:02 WBC RBC Hgb Hct MCV MCH MCHC RDW Lymph % (Auto) Armstrong % (Auto) Lymph # (Auto) Armstrong # (Auto) Baso # (Auto) Seg Neutrophils % Seg Neuts % (Manual) Lymphocytes % (Manual) Nucleated RBC % Seg Neutrophils # Seg Neutrophils # Man Lymphocytes # (Manual) Monocytes # (Manual) Eosinophils # (Manual) PT INR APTT D-Dimer Heparin Anti-Xa Level ABG pH POC ABG pCO2 58.1 H POC ABG pO2 ABG pO2 ABG HCO3 ABG O2 Saturation ABG Base Excess ABG Hemoglobin 11.2 L ABG Oxyhemoglobin ABG Sodium 132.7 L ABG Potassium ABG Chloride 92.0 L ABG Glucose 238 H Oxyhemoglobin Carboxyhemoglobin Sodium Potassium Chloride Carbon Dioxide BUN Creatinine Glucose POC Glucose 209 H 208 H Lactic Acid Calcium Magnesium Ferritin Total Bilirubin Direct Bilirubin AST ALT Alkaline Phosphatase Lactate Dehydrogenase C-Reactive Protein Total Protein Albumin Triglycerides Lipase Arterial Blood Glucose 238 H Arterial Blood Ionized Calcium Urine WBC (Auto) Coronavirus (PCR) SARS-CoV-2 IgG Ab Crossmatch 07/01/20 07/01/20 07/01/20 06:16 06:41 06:41 WBC 18.1 H RBC 2.33 L Hgb 7.1 L Hct 21.3 L D MCV MCH MCHC RDW Lymph % (Auto) Armstrong % (Auto) Lymph # (Auto) Armstrong # (Auto) Baso # (Auto) Seg Neutrophils % Seg Neuts % (Manual) 82.0 H Lymphocytes % (Manual) 7.0 L Nucleated RBC % 1.0 H Seg Neutrophils # Seg Neutrophils # Man 14.8 H Lymphocytes # (Manual) Monocytes # (Manual) 1.1 H Eosinophils # (Manual) 0.5 H PT INR APTT D-Dimer Heparin Anti-Xa Level < 0.10 L ABG pH POC ABG pCO2 POC ABG pO2 ABG pO2 ABG HCO3 ABG O2 Saturation ABG Base Excess ABG Hemoglobin ABG Oxyhemoglobin ABG Sodium ABG Potassium ABG Chloride ABG Glucose Oxyhemoglobin Carboxyhemoglobin Sodium Potassium Chloride Carbon Dioxide BUN Creatinine Glucose POC Glucose 180 H Lactic Acid Calcium Magnesium Ferritin Total Bilirubin Direct Bilirubin AST ALT Alkaline Phosphatase Lactate Dehydrogenase C-Reactive Protein Total Protein Albumin Triglycerides Lipase Arterial Blood Glucose Arterial Blood Ionized Calcium Urine WBC (Auto) Coronavirus (PCR) SARS-CoV-2 IgG Ab Crossmatch 07/01/20 07/01/20 07/01/20 08:11 12:04 16:16 WBC RBC Hgb Hct MCV MCH MCHC RDW Lymph % (Auto) Armstrong % (Auto) Lymph # (Auto) Armstrong # (Auto) Baso # (Auto) Seg Neutrophils % Seg Neuts % (Manual) Lymphocytes % (Manual) Nucleated RBC % Seg Neutrophils # Seg Neutrophils # Man Lymphocytes # (Manual) Monocytes # (Manual) Eosinophils # (Manual) PT INR APTT D-Dimer Heparin Anti-Xa Level 1.02 H ABG pH POC ABG pCO2 POC ABG pO2 ABG pO2 ABG HCO3 ABG O2 Saturation ABG Base Excess ABG Hemoglobin ABG Oxyhemoglobin ABG Sodium ABG Potassium ABG Chloride ABG Glucose Oxyhemoglobin Carboxyhemoglobin Sodium 135 L Potassium 3.0 L Chloride 93.1 L Carbon Dioxide 40 H BUN Creatinine 0.3 L Glucose 140 H POC Glucose 223 H Lactic Acid Calcium Magnesium Ferritin Total Bilirubin Direct Bilirubin AST ALT Alkaline Phosphatase Lactate Dehydrogenase C-Reactive Protein Total Protein Albumin Triglycerides Lipase Arterial Blood Glucose Arterial Blood Ionized Calcium Urine WBC (Auto) Coronavirus (PCR) SARS-CoV-2 IgG Ab Crossmatch 07/01/20 07/01/20 07/02/20 17:09 23:19 00:56 WBC RBC Hgb Hct MCV MCH MCHC RDW Lymph % (Auto) Armstrong % (Auto) Lymph # (Auto) Armstrong # (Auto) Baso # (Auto) Seg Neutrophils % Seg Neuts % (Manual) Lymphocytes % (Manual) Nucleated RBC % Seg Neutrophils # Seg Neutrophils # Man Lymphocytes # (Manual) Monocytes # (Manual) Eosinophils # (Manual) PT INR APTT D-Dimer Heparin Anti-Xa Level 0.22 L ABG pH POC ABG pCO2 POC ABG pO2 ABG pO2 ABG HCO3 ABG O2 Saturation ABG Base Excess ABG Hemoglobin ABG Oxyhemoglobin ABG Sodium ABG Potassium ABG Chloride ABG Glucose Oxyhemoglobin Carboxyhemoglobin Sodium Potassium Chloride Carbon Dioxide BUN Creatinine Glucose POC Glucose 233 H 255 H Lactic Acid Calcium Magnesium Ferritin Total Bilirubin Direct Bilirubin AST ALT Alkaline Phosphatase Lactate Dehydrogenase C-Reactive Protein Total Protein Albumin Triglycerides Lipase Arterial Blood Glucose Arterial Blood Ionized Calcium Urine WBC (Auto) Coronavirus (PCR) SARS-CoV-2 IgG Ab Crossmatch 07/02/20 07/02/20 07/02/20 03:51 05:35 11:39 WBC RBC Hgb Hct MCV MCH MCHC RDW Lymph % (Auto) Armstrong % (Auto) Lymph # (Auto) Armstrong # (Auto) Baso # (Auto) Seg Neutrophils % Seg Neuts % (Manual) Lymphocytes % (Manual) Nucleated RBC % Seg Neutrophils # Seg Neutrophils # Man Lymphocytes # (Manual) Monocytes # (Manual) Eosinophils # (Manual) PT INR APTT D-Dimer Heparin Anti-Xa Level ABG pH POC ABG pCO2 54.9 H POC ABG pO2 52.1 L ABG pO2 ABG HCO3 ABG O2 Saturation ABG Base Excess ABG Hemoglobin 11.9 L ABG Oxyhemoglobin 82.8 L ABG Sodium 130.2 L ABG Potassium ABG Chloride 92.0 L ABG Glucose 249 H Oxyhemoglobin Carboxyhemoglobin 1.9 H Sodium Potassium Chloride Carbon Dioxide BUN Creatinine Glucose POC Glucose 205 H 235 H Lactic Acid Calcium Magnesium Ferritin Total Bilirubin Direct Bilirubin AST ALT Alkaline Phosphatase Lactate Dehydrogenase C-Reactive Protein Total Protein Albumin Triglycerides Lipase Arterial Blood Glucose 249 H Arterial Blood Ionized Calcium Urine WBC (Auto) Coronavirus (PCR) SARS-CoV-2 IgG Ab Crossmatch 07/02/20 07/02/20 07/02/20 16:08 16:08 17:54 WBC 19.8 H RBC 3.28 L Hgb 10.7 L D Hct 32.7 L D MCV 100 H MCH 33 H MCHC RDW 17.2 H Lymph % (Auto) Armstrong % (Auto) Lymph # (Auto) Armstrong # (Auto) Baso # (Auto) Seg Neutrophils % Seg Neuts % (Manual) Lymphocytes % (Manual) Nucleated RBC % Seg Neutrophils # Seg Neutrophils # Man Lymphocytes # (Manual) Monocytes # (Manual) Eosinophils # (Manual) PT INR APTT D-Dimer Heparin Anti-Xa Level ABG pH POC ABG pCO2 POC ABG pO2 ABG pO2 ABG HCO3 ABG O2 Saturation ABG Base Excess ABG Hemoglobin ABG Oxyhemoglobin ABG Sodium ABG Potassium ABG Chloride ABG Glucose Oxyhemoglobin Carboxyhemoglobin Sodium 136 L Potassium Chloride 92.4 L Carbon Dioxide 35 H BUN Creatinine 0.3 L Glucose 203 H POC Glucose 175 H Lactic Acid Calcium Magnesium Ferritin Total Bilirubin Direct Bilirubin AST ALT Alkaline Phosphatase Lactate Dehydrogenase C-Reactive Protein Total Protein Albumin Triglycerides Lipase Arterial Blood Glucose Arterial Blood Ionized Calcium Urine WBC (Auto) Coronavirus (PCR) SARS-CoV-2 IgG Ab Crossmatch 07/02/20 07/03/20 07/03/20 23:46 03:25 05:54 WBC RBC Hgb Hct MCV MCH MCHC RDW Lymph % (Auto) Armstrong % (Auto) Lymph # (Auto) Armstrong # (Auto) Baso # (Auto) Seg Neutrophils % Seg Neuts % (Manual) Lymphocytes % (Manual) Nucleated RBC % Seg Neutrophils # Seg Neutrophils # Man Lymphocytes # (Manual) Monocytes # (Manual) Eosinophils # (Manual) PT INR APTT D-Dimer Heparin Anti-Xa Level ABG pH 7.468 H POC ABG pCO2 51.5 H POC ABG pO2 ABG pO2 ABG HCO3 ABG O2 Saturation ABG Base Excess ABG Hemoglobin ABG Oxyhemoglobin ABG Sodium 130.2 L ABG Potassium ABG Chloride 91.0 L ABG Glucose 210 H Oxyhemoglobin Carboxyhemoglobin 1.6 H Sodium Potassium Chloride Carbon Dioxide BUN Creatinine Glucose POC Glucose 173 H 125 H Lactic Acid Calcium Magnesium Ferritin Total Bilirubin Direct Bilirubin AST ALT Alkaline Phosphatase Lactate Dehydrogenase C-Reactive Protein Total Protein Albumin Triglycerides Lipase Arterial Blood Glucose 210 H Arterial Blood Ionized Calcium Urine WBC (Auto) Coronavirus (PCR) SARS-CoV-2 IgG Ab Crossmatch 07/03/20 07/03/20 07/03/20 11:43 12:20 12:20 WBC 16.5 H RBC 3.13 L Hgb 10.4 L Hct 31.8 L MCV 102 H MCH 33 H MCHC RDW 17.2 H Lymph % (Auto) Armstrong % (Auto) Lymph # (Auto) Armstrong # (Auto) Baso # (Auto) Seg Neutrophils % Seg Neuts % (Manual) Lymphocytes % (Manual) Nucleated RBC % Seg Neutrophils # Seg Neutrophils # Man Lymphocytes # (Manual) Monocytes # (Manual) Eosinophils # (Manual) PT INR APTT D-Dimer Heparin Anti-Xa Level ABG pH POC ABG pCO2 POC ABG pO2 ABG pO2 ABG HCO3 ABG O2 Saturation ABG Base Excess ABG Hemoglobin ABG Oxyhemoglobin ABG Sodium ABG Potassium ABG Chloride ABG Glucose Oxyhemoglobin Carboxyhemoglobin Sodium 132 L Potassium Chloride 88.5 L Carbon Dioxide 37 H BUN Creatinine 0.3 L Glucose 230 H POC Glucose 223 H Lactic Acid Calcium Magnesium Ferritin Total Bilirubin Direct Bilirubin AST ALT Alkaline Phosphatase Lactate Dehydrogenase C-Reactive Protein Total Protein Albumin Triglycerides Lipase Arterial Blood Glucose Arterial Blood Ionized Calcium Urine WBC (Auto) Coronavirus (PCR) SARS-CoV-2 IgG Ab Crossmatch 07/03/20 07/03/20 07/04/20 17:24 21:41 00:54 WBC RBC Hgb Hct MCV MCH MCHC RDW Lymph % (Auto) Armstrong % (Auto) Lymph # (Auto) Armstrong # (Auto) Baso # (Auto) Seg Neutrophils % Seg Neuts % (Manual) Lymphocytes % (Manual) Nucleated RBC % Seg Neutrophils # Seg Neutrophils # Man Lymphocytes # (Manual) Monocytes # (Manual) Eosinophils # (Manual) PT INR APTT D-Dimer Heparin Anti-Xa Level ABG pH POC ABG pCO2 POC ABG pO2 ABG pO2 ABG HCO3 ABG O2 Saturation ABG Base Excess ABG Hemoglobin ABG Oxyhemoglobin ABG Sodium ABG Potassium ABG Chloride ABG Glucose Oxyhemoglobin Carboxyhemoglobin Sodium Potassium Chloride Carbon Dioxide BUN Creatinine Glucose POC Glucose 163 H 220 H 195 H Lactic Acid Calcium Magnesium Ferritin Total Bilirubin Direct Bilirubin AST ALT Alkaline Phosphatase Lactate Dehydrogenase C-Reactive Protein Total Protein Albumin Triglycerides Lipase Arterial Blood Glucose Arterial Blood Ionized Calcium Urine WBC (Auto) Coronavirus (PCR) SARS-CoV-2 IgG Ab Crossmatch 07/04/20 07/04/20 07/04/20 03:25 04:00 04:00 WBC 14.9 H RBC 2.91 L Hgb 9.5 L Hct 29.2 L MCV 100 H MCH 33 H MCHC RDW 16.7 H Lymph % (Auto) 8.4 L Armstrong % (Auto) Lymph # (Auto) Armstrong # (Auto) 1.1 H Baso # (Auto) Seg Neutrophils % 84.2 H Seg Neuts % (Manual) Lymphocytes % (Manual) Nucleated RBC % Seg Neutrophils # 12.6 H Seg Neutrophils # Man Lymphocytes # (Manual) Monocytes # (Manual) Eosinophils # (Manual) PT INR APTT D-Dimer Heparin Anti-Xa Level ABG pH 7.474 H POC ABG pCO2 POC ABG pO2 51.8 L ABG pO2 ABG HCO3 ABG O2 Saturation ABG Base Excess ABG Hemoglobin ABG Oxyhemoglobin ABG Sodium ABG Potassium ABG Chloride ABG Glucose Oxyhemoglobin Carboxyhemoglobin Sodium Potassium 3.4 L Chloride 92.1 L Carbon Dioxide 34 H BUN Creatinine 0.3 L Glucose 173 H POC Glucose Lactic Acid Calcium Magnesium Ferritin Total Bilirubin Direct Bilirubin AST ALT Alkaline Phosphatase Lactate Dehydrogenase C-Reactive Protein Total Protein Albumin Triglycerides Lipase Arterial Blood Glucose Arterial Blood Ionized Calcium Urine WBC (Auto) Coronavirus (PCR) SARS-CoV-2 IgG Ab Crossmatch 07/04/20 07/04/20 07/04/20 06:18 11:39 17:18 WBC RBC Hgb Hct MCV MCH MCHC RDW Lymph % (Auto) Armstrong % (Auto) Lymph # (Auto) Armstrong # (Auto) Baso # (Auto) Seg Neutrophils % Seg Neuts % (Manual) Lymphocytes % (Manual) Nucleated RBC % Seg Neutrophils # Seg Neutrophils # Man Lymphocytes # (Manual) Monocytes # (Manual) Eosinophils # (Manual) PT INR APTT D-Dimer Heparin Anti-Xa Level ABG pH POC ABG pCO2 POC ABG pO2 ABG pO2 ABG HCO3 ABG O2 Saturation ABG Base Excess ABG Hemoglobin ABG Oxyhemoglobin ABG Sodium ABG Potassium ABG Chloride ABG Glucose Oxyhemoglobin Carboxyhemoglobin Sodium Potassium Chloride Carbon Dioxide BUN Creatinine Glucose POC Glucose 158 H 257 H 148 H Lactic Acid Calcium Magnesium Ferritin Total Bilirubin Direct Bilirubin AST ALT Alkaline Phosphatase Lactate Dehydrogenase C-Reactive Protein Total Protein Albumin Triglycerides Lipase Arterial Blood Glucose Arterial Blood Ionized Calcium Urine WBC (Auto) Coronavirus (PCR) SARS-CoV-2 IgG Ab Crossmatch 07/04/20 07/05/20 07/05/20 23:23 03:13 05:18 WBC 13.3 H RBC 2.90 L Hgb 9.8 L Hct 29.3 L MCV 101 H MCH 34 H MCHC RDW 17.0 H Lymph % (Auto) 11.1 L Armstrong % (Auto) Lymph # (Auto) Armstrong # (Auto) Baso # (Auto) Seg Neutrophils % 82.3 H Seg Neuts % (Manual) Lymphocytes % (Manual) Nucleated RBC % Seg Neutrophils # 10.9 H Seg Neutrophils # Man Lymphocytes # (Manual) Monocytes # (Manual) Eosinophils # (Manual) PT INR APTT D-Dimer Heparin Anti-Xa Level ABG pH 7.48 H POC ABG pCO2 52.0 H POC ABG pO2 ABG pO2 ABG HCO3 ABG O2 Saturation ABG Base Excess ABG Hemoglobin 10.0 L ABG Oxyhemoglobin ABG Sodium 131.0 L ABG Potassium 3.3 L ABG Chloride 93.0 L ABG Glucose 177 H Oxyhemoglobin Carboxyhemoglobin Sodium Potassium Chloride Carbon Dioxide BUN Creatinine Glucose POC Glucose 227 H Lactic Acid Calcium Magnesium Ferritin Total Bilirubin Direct Bilirubin AST ALT Alkaline Phosphatase Lactate Dehydrogenase C-Reactive Protein Total Protein Albumin Triglycerides Lipase Arterial Blood Glucose 177 H Arterial Blood Ionized Calcium Urine WBC (Auto) Coronavirus (PCR) SARS-CoV-2 IgG Ab Crossmatch 07/05/20 07/05/20 07/05/20 05:18 05:25 05:57 WBC RBC Hgb Hct MCV MCH MCHC RDW Lymph % (Auto) Armstrong % (Auto) Lymph # (Auto) Armstrong # (Auto) Baso # (Auto) Seg Neutrophils % Seg Neuts % (Manual) Lymphocytes % (Manual) Nucleated RBC % Seg Neutrophils # Seg Neutrophils # Man Lymphocytes # (Manual) Monocytes # (Manual) Eosinophils # (Manual) PT INR APTT D-Dimer Heparin Anti-Xa Level ABG pH 7.519 H POC ABG pCO2 POC ABG pO2 198.6 H ABG pO2 ABG HCO3 ABG O2 Saturation ABG Base Excess ABG Hemoglobin 10.3 L ABG Oxyhemoglobin 98.7 H ABG Sodium 133.6 L ABG Potassium 3.3 L ABG Chloride 93.0 L ABG Glucose 175 H Oxyhemoglobin Carboxyhemoglobin Sodium Potassium 3.4 L Chloride 92.5 L Carbon Dioxide 36 H BUN Creatinine 0.3 L Glucose 148 H POC Glucose 170 H Lactic Acid Calcium Magnesium Ferritin Total Bilirubin Direct Bilirubin AST ALT Alkaline Phosphatase Lactate Dehydrogenase C-Reactive Protein Total Protein Albumin Triglycerides Lipase Arterial Blood Glucose 175 H Arterial Blood Ionized Calcium Urine WBC (Auto) Coronavirus (PCR) SARS-CoV-2 IgG Ab Crossmatch 07/05/20 07/05/20 07/06/20 11:37 18:39 00:04 WBC RBC Hgb Hct MCV MCH MCHC RDW Lymph % (Auto) Armstrong % (Auto) Lymph # (Auto) Armstrong # (Auto) Baso # (Auto) Seg Neutrophils % Seg Neuts % (Manual) Lymphocytes % (Manual) Nucleated RBC % Seg Neutrophils # Seg Neutrophils # Man Lymphocytes # (Manual) Monocytes # (Manual) Eosinophils # (Manual) PT INR APTT D-Dimer Heparin Anti-Xa Level ABG pH POC ABG pCO2 POC ABG pO2 ABG pO2 ABG HCO3 ABG O2 Saturation ABG Base Excess ABG Hemoglobin ABG Oxyhemoglobin ABG Sodium ABG Potassium ABG Chloride ABG Glucose Oxyhemoglobin Carboxyhemoglobin Sodium Potassium Chloride Carbon Dioxide BUN Creatinine Glucose POC Glucose 195 H 200 H 222 H Lactic Acid Calcium Magnesium Ferritin Total Bilirubin Direct Bilirubin AST ALT Alkaline Phosphatase Lactate Dehydrogenase C-Reactive Protein Total Protein Albumin Triglycerides Lipase Arterial Blood Glucose Arterial Blood Ionized Calcium Urine WBC (Auto) Coronavirus (PCR) SARS-CoV-2 IgG Ab Crossmatch 07/06/20 07/06/20 07/06/20 05:25 06:52 06:52 WBC 15.8 H RBC 3.17 L Hgb 10.4 L Hct 31.5 L MCV 99 H MCH 33 H MCHC RDW 17.0 H Lymph % (Auto) Armstrong % (Auto) Lymph # (Auto) Armstrong # (Auto) Baso # (Auto) Seg Neutrophils % Seg Neuts % (Manual) Lymphocytes % (Manual) Nucleated RBC % Seg Neutrophils # Seg Neutrophils # Man Lymphocytes # (Manual) Monocytes # (Manual) Eosinophils # (Manual) PT INR APTT D-Dimer Heparin Anti-Xa Level ABG pH POC ABG pCO2 POC ABG pO2 ABG pO2 ABG HCO3 ABG O2 Saturation ABG Base Excess ABG Hemoglobin ABG Oxyhemoglobin ABG Sodium ABG Potassium ABG Chloride ABG Glucose Oxyhemoglobin Carboxyhemoglobin Sodium 135 L Potassium 3.4 L Chloride 91.9 L Carbon Dioxide 38 H BUN Creatinine 0.3 L Glucose 189 H POC Glucose 165 H Lactic Acid Calcium Magnesium Ferritin Total Bilirubin Direct Bilirubin AST ALT Alkaline Phosphatase Lactate Dehydrogenase C-Reactive Protein Total Protein Albumin Triglycerides Lipase Arterial Blood Glucose Arterial Blood Ionized Calcium Urine WBC (Auto) Coronavirus (PCR) SARS-CoV-2 IgG Ab Crossmatch 07/06/20 07/06/20 07/06/20 13:01 18:04 23:08 WBC RBC Hgb Hct MCV MCH MCHC RDW Lymph % (Auto) Armstrong % (Auto) Lymph # (Auto) Armstrong # (Auto) Baso # (Auto) Seg Neutrophils % Seg Neuts % (Manual) Lymphocytes % (Manual) Nucleated RBC % Seg Neutrophils # Seg Neutrophils # Man Lymphocytes # (Manual) Monocytes # (Manual) Eosinophils # (Manual) PT INR APTT D-Dimer Heparin Anti-Xa Level ABG pH POC ABG pCO2 POC ABG pO2 ABG pO2 ABG HCO3 ABG O2 Saturation ABG Base Excess ABG Hemoglobin ABG Oxyhemoglobin ABG Sodium ABG Potassium ABG Chloride ABG Glucose Oxyhemoglobin Carboxyhemoglobin Sodium Potassium Chloride Carbon Dioxide BUN Creatinine Glucose POC Glucose 195 H 169 H 173 H Lactic Acid Calcium Magnesium Ferritin Total Bilirubin Direct Bilirubin AST ALT Alkaline Phosphatase Lactate Dehydrogenase C-Reactive Protein Total Protein Albumin Triglycerides Lipase Arterial Blood Glucose Arterial Blood Ionized Calcium Urine WBC (Auto) Coronavirus (PCR) SARS-CoV-2 IgG Ab Crossmatch 07/07/20 07/07/20 07/07/20 05:35 05:35 05:39 WBC 17.6 H RBC 3.16 L Hgb 10.4 L Hct 31.5 L MCV 100 H MCH 33 H MCHC RDW 16.7 H Lymph % (Auto) 11.1 L Armstrong % (Auto) Lymph # (Auto) Armstrong # (Auto) 1.0 H Baso # (Auto) Seg Neutrophils % 83.0 H Seg Neuts % (Manual) Lymphocytes % (Manual) Nucleated RBC % Seg Neutrophils # 14.6 H Seg Neutrophils # Man Lymphocytes # (Manual) Monocytes # (Manual) Eosinophils # (Manual) PT INR APTT D-Dimer Heparin Anti-Xa Level ABG pH POC ABG pCO2 POC ABG pO2 ABG pO2 ABG HCO3 ABG O2 Saturation ABG Base Excess ABG Hemoglobin ABG Oxyhemoglobin ABG Sodium ABG Potassium ABG Chloride ABG Glucose Oxyhemoglobin Carboxyhemoglobin Sodium 135 L Potassium 3.4 L Chloride 94.3 L Carbon Dioxide 32 H BUN Creatinine 0.2 L Glucose 240 H POC Glucose 191 H Lactic Acid Calcium Magnesium Ferritin Total Bilirubin Direct Bilirubin AST ALT Alkaline Phosphatase Lactate Dehydrogenase C-Reactive Protein Total Protein Albumin Triglycerides Lipase Arterial Blood Glucose Arterial Blood Ionized Calcium Urine WBC (Auto) Coronavirus (PCR) SARS-CoV-2 IgG Ab Crossmatch 07/07/20 07/07/20 07/07/20 12:08 16:39 23:41 WBC RBC Hgb Hct MCV MCH MCHC RDW Lymph % (Auto) Armstrong % (Auto) Lymph # (Auto) Armstrong # (Auto) Baso # (Auto) Seg Neutrophils % Seg Neuts % (Manual) Lymphocytes % (Manual) Nucleated RBC % Seg Neutrophils # Seg Neutrophils # Man Lymphocytes # (Manual) Monocytes # (Manual) Eosinophils # (Manual) PT INR APTT D-Dimer Heparin Anti-Xa Level ABG pH POC ABG pCO2 POC ABG pO2 ABG pO2 ABG HCO3 ABG O2 Saturation ABG Base Excess ABG Hemoglobin ABG Oxyhemoglobin ABG Sodium ABG Potassium ABG Chloride ABG Glucose Oxyhemoglobin Carboxyhemoglobin Sodium Potassium Chloride Carbon Dioxide BUN Creatinine Glucose POC Glucose 248 H 209 H 231 H Lactic Acid Calcium Magnesium Ferritin Total Bilirubin Direct Bilirubin AST ALT Alkaline Phosphatase Lactate Dehydrogenase C-Reactive Protein Total Protein Albumin Triglycerides Lipase Arterial Blood Glucose Arterial Blood Ionized Calcium Urine WBC (Auto) Coronavirus (PCR) SARS-CoV-2 IgG Ab Crossmatch 07/08/20 07/08/20 07/08/20 04:58 04:58 05:38 WBC 21.0 H RBC 2.86 L Hgb 9.2 L Hct 28.6 L MCV 100 H MCH MCHC RDW 16.7 H Lymph % (Auto) Armstrong % (Auto) Lymph # (Auto) Armstrong # (Auto) Baso # (Auto) Seg Neutrophils % Seg Neuts % (Manual) 93.0 H Lymphocytes % (Manual) 3.0 L Nucleated RBC % Seg Neutrophils # Seg Neutrophils # Man 19.5 H Lymphocytes # (Manual) 0.6 L Monocytes # (Manual) Eosinophils # (Manual) PT INR APTT D-Dimer Heparin Anti-Xa Level ABG pH POC ABG pCO2 POC ABG pO2 ABG pO2 ABG HCO3 ABG O2 Saturation ABG Base Excess ABG Hemoglobin ABG Oxyhemoglobin ABG Sodium ABG Potassium ABG Chloride ABG Glucose Oxyhemoglobin Carboxyhemoglobin Sodium Potassium 3.0 L Chloride Carbon Dioxide BUN Creatinine 0.2 L Glucose 201 H POC Glucose 161 H Lactic Acid Calcium 7.9 L D Magnesium Ferritin Total Bilirubin Direct Bilirubin AST ALT Alkaline Phosphatase Lactate Dehydrogenase C-Reactive Protein Total Protein Albumin Triglycerides Lipase Arterial Blood Glucose Arterial Blood Ionized Calcium Urine WBC (Auto) Coronavirus (PCR) SARS-CoV-2 IgG Ab Crossmatch 07/08/20 07/08/20 07/08/20 12:19 16:26 Unknown WBC RBC Hgb Hct MCV MCH MCHC RDW Lymph % (Auto) Armstrong % (Auto) Lymph # (Auto) Armstrong # (Auto) Baso # (Auto) Seg Neutrophils % Seg Neuts % (Manual) Lymphocytes % (Manual) Nucleated RBC % Seg Neutrophils # Seg Neutrophils # Man Lymphocytes # (Manual) Monocytes # (Manual) Eosinophils # (Manual) PT INR APTT D-Dimer Heparin Anti-Xa Level ABG pH POC ABG pCO2 POC ABG pO2 ABG pO2 75.3 L ABG HCO3 34.3 H ABG O2 Saturation ABG Base Excess 8.7 H ABG Hemoglobin 10.2 L ABG Oxyhemoglobin ABG Sodium ABG Potassium ABG Chloride ABG Glucose Oxyhemoglobin 93.7 L Carboxyhemoglobin Sodium Potassium Chloride Carbon Dioxide BUN Creatinine Glucose POC Glucose 152 H 173 H Lactic Acid Calcium Magnesium Ferritin Total Bilirubin Direct Bilirubin AST ALT Alkaline Phosphatase Lactate Dehydrogenase C-Reactive Protein Total Protein Albumin Triglycerides Lipase Arterial Blood Glucose Arterial Blood Ionized Calcium Urine WBC (Auto) Coronavirus (PCR) SARS-CoV-2 IgG Ab Crossmatch 07/09/20 07/09/20 07/09/20 00:01 06:00 11:55 WBC RBC Hgb Hct MCV MCH MCHC RDW Lymph % (Auto) Armstrong % (Auto) Lymph # (Auto) Armstrong # (Auto) Baso # (Auto) Seg Neutrophils % Seg Neuts % (Manual) Lymphocytes % (Manual) Nucleated RBC % Seg Neutrophils # Seg Neutrophils # Man Lymphocytes # (Manual) Monocytes # (Manual) Eosinophils # (Manual) PT INR APTT D-Dimer Heparin Anti-Xa Level ABG pH POC ABG pCO2 POC ABG pO2 ABG pO2 ABG HCO3 ABG O2 Saturation ABG Base Excess ABG Hemoglobin ABG Oxyhemoglobin ABG Sodium ABG Potassium ABG Chloride ABG Glucose Oxyhemoglobin Carboxyhemoglobin Sodium Potassium Chloride Carbon Dioxide BUN Creatinine Glucose POC Glucose 207 H 141 H 228 H Lactic Acid Calcium Magnesium Ferritin Total Bilirubin Direct Bilirubin AST ALT Alkaline Phosphatase Lactate Dehydrogenase C-Reactive Protein Total Protein Albumin Triglycerides Lipase Arterial Blood Glucose Arterial Blood Ionized Calcium Urine WBC (Auto) Coronavirus (PCR) SARS-CoV-2 IgG Ab Crossmatch 07/09/20 07/09/20 07/09/20 16:47 23:53 Unknown WBC RBC Hgb Hct MCV MCH MCHC RDW Lymph % (Auto) Armstrong % (Auto) Lymph # (Auto) Armstrong # (Auto) Baso # (Auto) Seg Neutrophils % Seg Neuts % (Manual) Lymphocytes % (Manual) Nucleated RBC % Seg Neutrophils # Seg Neutrophils # Man Lymphocytes # (Manual) Monocytes # (Manual) Eosinophils # (Manual) PT INR APTT D-Dimer Heparin Anti-Xa Level ABG pH POC ABG pCO2 POC ABG pO2 ABG pO2 ABG HCO3 ABG O2 Saturation ABG Base Excess ABG Hemoglobin ABG Oxyhemoglobin ABG Sodium ABG Potassium ABG Chloride ABG Glucose Oxyhemoglobin Carboxyhemoglobin Sodium 132 L Potassium Chloride 92.7 L Carbon Dioxide 35 H BUN Creatinine 0.2 L Glucose 234 H POC Glucose 136 H 219 H Lactic Acid Calcium Magnesium Ferritin Total Bilirubin Direct Bilirubin AST ALT Alkaline Phosphatase Lactate Dehydrogenase C-Reactive Protein Total Protein Albumin Triglycerides Lipase Arterial Blood Glucose Arterial Blood Ionized Calcium Urine WBC (Auto) Coronavirus (PCR) SARS-CoV-2 IgG Ab Crossmatch 07/10/20 07/10/20 07/10/20 05:20 12:05 18:38 WBC RBC Hgb Hct MCV MCH MCHC RDW Lymph % (Auto) Armstrong % (Auto) Lymph # (Auto) Armstrong # (Auto) Baso # (Auto) Seg Neutrophils % Seg Neuts % (Manual) Lymphocytes % (Manual) Nucleated RBC % Seg Neutrophils # Seg Neutrophils # Man Lymphocytes # (Manual) Monocytes # (Manual) Eosinophils # (Manual) PT INR APTT D-Dimer Heparin Anti-Xa Level ABG pH POC ABG pCO2 POC ABG pO2 ABG pO2 ABG HCO3 ABG O2 Saturation ABG Base Excess ABG Hemoglobin ABG Oxyhemoglobin ABG Sodium ABG Potassium ABG Chloride ABG Glucose Oxyhemoglobin Carboxyhemoglobin Sodium Potassium Chloride Carbon Dioxide BUN Creatinine Glucose POC Glucose 221 H 174 H 152 H Lactic Acid Calcium Magnesium Ferritin Total Bilirubin Direct Bilirubin AST ALT Alkaline Phosphatase Lactate Dehydrogenase C-Reactive Protein Total Protein Albumin Triglycerides Lipase Arterial Blood Glucose Arterial Blood Ionized Calcium Urine WBC (Auto) Coronavirus (PCR) SARS-CoV-2 IgG Ab Crossmatch 07/11/20 07/11/20 07/11/20 00:16 05:42 08:13 WBC 11.9 H RBC 3.13 L Hgb 10.2 L Hct 31.2 L MCV 100 H MCH 33 H MCHC RDW 16.4 H Lymph % (Auto) Armstrong % (Auto) 9.3 H Lymph # (Auto) Armstrong # (Auto) 1.1 H Baso # (Auto) Seg Neutrophils % 72.7 H Seg Neuts % (Manual) Lymphocytes % (Manual) Nucleated RBC % Seg Neutrophils # 8.7 H Seg Neutrophils # Man Lymphocytes # (Manual) Monocytes # (Manual) Eosinophils # (Manual) PT INR APTT D-Dimer Heparin Anti-Xa Level ABG pH POC ABG pCO2 POC ABG pO2 ABG pO2 ABG HCO3 ABG O2 Saturation ABG Base Excess ABG Hemoglobin ABG Oxyhemoglobin ABG Sodium ABG Potassium ABG Chloride ABG Glucose Oxyhemoglobin Carboxyhemoglobin Sodium Potassium Chloride Carbon Dioxide BUN Creatinine Glucose POC Glucose 170 H 186 H Lactic Acid Calcium Magnesium Ferritin Total Bilirubin Direct Bilirubin AST ALT Alkaline Phosphatase Lactate Dehydrogenase C-Reactive Protein Total Protein Albumin Triglycerides Lipase Arterial Blood Glucose Arterial Blood Ionized Calcium Urine WBC (Auto) Coronavirus (PCR) SARS-CoV-2 IgG Ab Crossmatch 07/11/20 07/11/20 07/11/20 08:13 11:35 18:07 WBC RBC Hgb Hct MCV MCH MCHC RDW Lymph % (Auto) Armstrong % (Auto) Lymph # (Auto) Armstrong # (Auto) Baso # (Auto) Seg Neutrophils % Seg Neuts % (Manual) Lymphocytes % (Manual) Nucleated RBC % Seg Neutrophils # Seg Neutrophils # Man Lymphocytes # (Manual) Monocytes # (Manual) Eosinophils # (Manual) PT INR APTT D-Dimer Heparin Anti-Xa Level ABG pH POC ABG pCO2 POC ABG pO2 ABG pO2 ABG HCO3 ABG O2 Saturation ABG Base Excess ABG Hemoglobin ABG Oxyhemoglobin ABG Sodium ABG Potassium ABG Chloride ABG Glucose Oxyhemoglobin Carboxyhemoglobin Sodium 135 L Potassium Chloride 92.8 L Carbon Dioxide 38 H BUN Creatinine 0.2 L Glucose 132 H POC Glucose 129 H 156 H Lactic Acid Calcium Magnesium Ferritin Total Bilirubin Direct Bilirubin AST ALT Alkaline Phosphatase Lactate Dehydrogenase C-Reactive Protein Total Protein Albumin Triglycerides Lipase Arterial Blood Glucose Arterial Blood Ionized Calcium Urine WBC (Auto) Coronavirus (PCR) SARS-CoV-2 IgG Ab Crossmatch 07/11/20 07/11/20 07/12/20 18:36 23:18 05:28 WBC RBC Hgb Hct MCV MCH MCHC RDW Lymph % (Auto) Armstrong % (Auto) Lymph # (Auto) Armstrong # (Auto) Baso # (Auto) Seg Neutrophils % Seg Neuts % (Manual) Lymphocytes % (Manual) Nucleated RBC % Seg Neutrophils # Seg Neutrophils # Man Lymphocytes # (Manual) Monocytes # (Manual) Eosinophils # (Manual) PT INR APTT D-Dimer Heparin Anti-Xa Level ABG pH POC ABG pCO2 POC ABG pO2 70.9 L ABG pO2 ABG HCO3 ABG O2 Saturation ABG Base Excess ABG Hemoglobin 10.8 L ABG Oxyhemoglobin 92.5 L ABG Sodium 131.8 L ABG Potassium 3.2 L ABG Chloride 91.0 L ABG Glucose 181 H Oxyhemoglobin Carboxyhemoglobin Sodium Potassium Chloride Carbon Dioxide BUN Creatinine Glucose POC Glucose 189 H 190 H Lactic Acid Calcium Magnesium Ferritin Total Bilirubin Direct Bilirubin AST ALT Alkaline Phosphatase Lactate Dehydrogenase C-Reactive Protein Total Protein Albumin Triglycerides Lipase Arterial Blood Glucose 181 H Arterial Blood Ionized Calcium Urine WBC (Auto) Coronavirus (PCR) SARS-CoV-2 IgG Ab Crossmatch 07/12/20 07/12/20 07/12/20 11:33 17:45 23:59 WBC RBC Hgb Hct MCV MCH MCHC RDW Lymph % (Auto) Armstrong % (Auto) Lymph # (Auto) Armstrong # (Auto) Baso # (Auto) Seg Neutrophils % Seg Neuts % (Manual) Lymphocytes % (Manual) Nucleated RBC % Seg Neutrophils # Seg Neutrophils # Man Lymphocytes # (Manual) Monocytes # (Manual) Eosinophils # (Manual) PT INR APTT D-Dimer Heparin Anti-Xa Level ABG pH POC ABG pCO2 POC ABG pO2 ABG pO2 ABG HCO3 ABG O2 Saturation ABG Base Excess ABG Hemoglobin ABG Oxyhemoglobin ABG Sodium ABG Potassium ABG Chloride ABG Glucose Oxyhemoglobin Carboxyhemoglobin Sodium Potassium Chloride Carbon Dioxide BUN Creatinine Glucose POC Glucose 151 H 211 H 169 H Lactic Acid Calcium Magnesium Ferritin Total Bilirubin Direct Bilirubin AST ALT Alkaline Phosphatase Lactate Dehydrogenase C-Reactive Protein Total Protein Albumin Triglycerides Lipase Arterial Blood Glucose Arterial Blood Ionized Calcium Urine WBC (Auto) Coronavirus (PCR) SARS-CoV-2 IgG Ab Crossmatch 07/13/20 07/13/20 07/13/20 05:44 08:31 08:31 WBC 21.3 H RBC 2.92 L Hgb 9.7 L Hct 28.7 L MCV 98 H MCH 33 H MCHC RDW 16.8 H Lymph % (Auto) Armstrong % (Auto) Lymph # (Auto) Armstrong # (Auto) Baso # (Auto) Seg Neutrophils % Seg Neuts % (Manual) 96.0 H Lymphocytes % (Manual) 2.0 L Nucleated RBC % Seg Neutrophils # Seg Neutrophils # Man 20.4 H Lymphocytes # (Manual) 0.4 L Monocytes # (Manual) Eosinophils # (Manual) PT INR APTT D-Dimer Heparin Anti-Xa Level ABG pH POC ABG pCO2 POC ABG pO2 ABG pO2 ABG HCO3 ABG O2 Saturation ABG Base Excess ABG Hemoglobin ABG Oxyhemoglobin ABG Sodium ABG Potassium ABG Chloride ABG Glucose Oxyhemoglobin Carboxyhemoglobin Sodium Potassium 2.9 L* D Chloride 94.4 L Carbon Dioxide 37 H BUN Creatinine 0.2 L Glucose 166 H POC Glucose 122 H Lactic Acid Calcium Magnesium Ferritin Total Bilirubin Direct Bilirubin AST ALT Alkaline Phosphatase Lactate Dehydrogenase C-Reactive Protein Total Protein Albumin Triglycerides Lipase Arterial Blood Glucose Arterial Blood Ionized Calcium Urine WBC (Auto) Coronavirus (PCR) SARS-CoV-2 IgG Ab Crossmatch 07/13/20 07/13/20 07/13/20 11:54 13:52 17:40 WBC RBC Hgb Hct MCV MCH MCHC RDW Lymph % (Auto) Armstrong % (Auto) Lymph # (Auto) Armstrong # (Auto) Baso # (Auto) Seg Neutrophils % Seg Neuts % (Manual) Lymphocytes % (Manual) Nucleated RBC % Seg Neutrophils # Seg Neutrophils # Man Lymphocytes # (Manual) Monocytes # (Manual) Eosinophils # (Manual) PT INR APTT D-Dimer Heparin Anti-Xa Level ABG pH 7.477 H POC ABG pCO2 54.4 H POC ABG pO2 126.8 H ABG pO2 ABG HCO3 ABG O2 Saturation ABG Base Excess ABG Hemoglobin 11.5 L ABG Oxyhemoglobin ABG Sodium ABG Potassium 3.2 L ABG Chloride 92.0 L ABG Glucose 169 H Oxyhemoglobin Carboxyhemoglobin Sodium Potassium Chloride Carbon Dioxide BUN Creatinine Glucose POC Glucose 132 H 128 H Lactic Acid Calcium Magnesium Ferritin Total Bilirubin Direct Bilirubin AST ALT Alkaline Phosphatase Lactate Dehydrogenase C-Reactive Protein Total Protein Albumin Triglycerides Lipase Arterial Blood Glucose 169 H Arterial Blood Ionized Calcium Urine WBC (Auto) Coronavirus (PCR) SARS-CoV-2 IgG Ab Crossmatch 07/14/20 07/14/20 07/15/20 07:49 17:09 05:27 WBC RBC Hgb Hct MCV MCH MCHC RDW Lymph % (Auto) Armstrong % (Auto) Lymph # (Auto) Armstrong # (Auto) Baso # (Auto) Seg Neutrophils % Seg Neuts % (Manual) Lymphocytes % (Manual) Nucleated RBC % Seg Neutrophils # Seg Neutrophils # Man Lymphocytes # (Manual) Monocytes # (Manual) Eosinophils # (Manual) PT INR APTT D-Dimer Heparin Anti-Xa Level ABG pH POC ABG pCO2 POC ABG pO2 ABG pO2 ABG HCO3 ABG O2 Saturation ABG Base Excess ABG Hemoglobin ABG Oxyhemoglobin ABG Sodium ABG Potassium ABG Chloride ABG Glucose Oxyhemoglobin Carboxyhemoglobin Sodium Potassium 2.7 L* Chloride 94.0 L Carbon Dioxide 37 H BUN Creatinine 0.3 L Glucose 110 H POC Glucose 152 H 61 L Lactic Acid Calcium Magnesium Ferritin Total Bilirubin Direct Bilirubin AST ALT Alkaline Phosphatase Lactate Dehydrogenase C-Reactive Protein Total Protein Albumin Triglycerides Lipase Arterial Blood Glucose Arterial Blood Ionized Calcium Urine WBC (Auto) Coronavirus (PCR) SARS-CoV-2 IgG Ab Crossmatch 07/15/20 07/15/20 07/15/20 05:31 11:49 17:18 WBC RBC Hgb Hct MCV MCH MCHC RDW Lymph % (Auto) Armstrong % (Auto) Lymph # (Auto) Armstrong # (Auto) Baso # (Auto) Seg Neutrophils % Seg Neuts % (Manual) Lymphocytes % (Manual) Nucleated RBC % Seg Neutrophils # Seg Neutrophils # Man Lymphocytes # (Manual) Monocytes # (Manual) Eosinophils # (Manual) PT INR APTT D-Dimer Heparin Anti-Xa Level ABG pH POC ABG pCO2 POC ABG pO2 ABG pO2 ABG HCO3 ABG O2 Saturation ABG Base Excess ABG Hemoglobin ABG Oxyhemoglobin ABG Sodium ABG Potassium ABG Chloride ABG Glucose Oxyhemoglobin Carboxyhemoglobin Sodium Potassium 3.2 L Chloride 91.2 L Carbon Dioxide 33 H BUN Creatinine 0.3 L Glucose 139 H POC Glucose 148 H 196 H Lactic Acid Calcium Magnesium Ferritin Total Bilirubin Direct Bilirubin AST ALT Alkaline Phosphatase Lactate Dehydrogenase C-Reactive Protein Total Protein Albumin Triglycerides Lipase Arterial Blood Glucose Arterial Blood Ionized Calcium Urine WBC (Auto) Coronavirus (PCR) SARS-CoV-2 IgG Ab Crossmatch 07/15/20 07/16/20 07/16/20 23:08 05:18 05:19 WBC 11.3 H RBC 3.10 L Hgb 10.0 L Hct 30.3 L MCV 98 H MCH MCHC RDW 16.3 H Lymph % (Auto) Armstrong % (Auto) Lymph # (Auto) Armstrong # (Auto) Baso # (Auto) Seg Neutrophils % Seg Neuts % (Manual) Lymphocytes % (Manual) Nucleated RBC % Seg Neutrophils # Seg Neutrophils # Man Lymphocytes # (Manual) Monocytes # (Manual) Eosinophils # (Manual) PT INR APTT D-Dimer Heparin Anti-Xa Level ABG pH POC ABG pCO2 POC ABG pO2 ABG pO2 ABG HCO3 ABG O2 Saturation ABG Base Excess ABG Hemoglobin ABG Oxyhemoglobin ABG Sodium ABG Potassium ABG Chloride ABG Glucose Oxyhemoglobin Carboxyhemoglobin Sodium Potassium Chloride Carbon Dioxide BUN Creatinine Glucose POC Glucose 131 H 160 H Lactic Acid Calcium Magnesium Ferritin Total Bilirubin Direct Bilirubin AST ALT Alkaline Phosphatase Lactate Dehydrogenase C-Reactive Protein Total Protein Albumin Triglycerides Lipase Arterial Blood Glucose Arterial Blood Ionized Calcium Urine WBC (Auto) Coronavirus (PCR) SARS-CoV-2 IgG Ab Crossmatch 07/16/20 07/16/20 07/16/20 05:19 11:45 17:17 WBC RBC Hgb Hct MCV MCH MCHC RDW Lymph % (Auto) Armstrong % (Auto) Lymph # (Auto) Armstrong # (Auto) Baso # (Auto) Seg Neutrophils % Seg Neuts % (Manual) Lymphocytes % (Manual) Nucleated RBC % Seg Neutrophils # Seg Neutrophils # Man Lymphocytes # (Manual) Monocytes # (Manual) Eosinophils # (Manual) PT INR APTT D-Dimer Heparin Anti-Xa Level ABG pH POC ABG pCO2 POC ABG pO2 ABG pO2 ABG HCO3 ABG O2 Saturation ABG Base Excess ABG Hemoglobin ABG Oxyhemoglobin ABG Sodium ABG Potassium ABG Chloride ABG Glucose Oxyhemoglobin Carboxyhemoglobin Sodium 132 L Potassium 3.4 L Chloride 89.9 L Carbon Dioxide 39 H BUN Creatinine 0.3 L Glucose 174 H POC Glucose 169 H 143 H Lactic Acid Calcium Magnesium Ferritin Total Bilirubin Direct Bilirubin AST ALT Alkaline Phosphatase Lactate Dehydrogenase C-Reactive Protein Total Protein Albumin Triglycerides Lipase Arterial Blood Glucose Arterial Blood Ionized Calcium Urine WBC (Auto) Coronavirus (PCR) SARS-CoV-2 IgG Ab Crossmatch 07/16/20 07/17/20 07/17/20 23:54 05:32 11:26 WBC RBC Hgb Hct MCV MCH MCHC RDW Lymph % (Auto) Armstrong % (Auto) Lymph # (Auto) Armstrong # (Auto) Baso # (Auto) Seg Neutrophils % Seg Neuts % (Manual) Lymphocytes % (Manual) Nucleated RBC % Seg Neutrophils # Seg Neutrophils # Man Lymphocytes # (Manual) Monocytes # (Manual) Eosinophils # (Manual) PT INR APTT D-Dimer Heparin Anti-Xa Level ABG pH POC ABG pCO2 POC ABG pO2 ABG pO2 ABG HCO3 ABG O2 Saturation ABG Base Excess ABG Hemoglobin ABG Oxyhemoglobin ABG Sodium ABG Potassium ABG Chloride ABG Glucose Oxyhemoglobin Carboxyhemoglobin Sodium Potassium Chloride Carbon Dioxide BUN Creatinine Glucose POC Glucose 147 H 149 H 211 H Lactic Acid Calcium Magnesium Ferritin Total Bilirubin Direct Bilirubin AST ALT Alkaline Phosphatase Lactate Dehydrogenase C-Reactive Protein Total Protein Albumin Triglycerides Lipase Arterial Blood Glucose Arterial Blood Ionized Calcium Urine WBC (Auto) Coronavirus (PCR) SARS-CoV-2 IgG Ab Crossmatch 07/17/20 07/17/20 07/18/20 18:16 23:12 06:15 WBC RBC Hgb Hct MCV MCH MCHC RDW Lymph % (Auto) Armstrong % (Auto) Lymph # (Auto) Armstrong # (Auto) Baso # (Auto) Seg Neutrophils % Seg Neuts % (Manual) Lymphocytes % (Manual) Nucleated RBC % Seg Neutrophils # Seg Neutrophils # Man Lymphocytes # (Manual) Monocytes # (Manual) Eosinophils # (Manual) PT INR APTT D-Dimer Heparin Anti-Xa Level ABG pH POC ABG pCO2 POC ABG pO2 ABG pO2 ABG HCO3 ABG O2 Saturation ABG Base Excess ABG Hemoglobin ABG Oxyhemoglobin ABG Sodium ABG Potassium ABG Chloride ABG Glucose Oxyhemoglobin Carboxyhemoglobin Sodium Potassium Chloride Carbon Dioxide BUN Creatinine Glucose POC Glucose 161 H 136 H 108 H Lactic Acid Calcium Magnesium Ferritin Total Bilirubin Direct Bilirubin AST ALT Alkaline Phosphatase Lactate Dehydrogenase C-Reactive Protein Total Protein Albumin Triglycerides Lipase Arterial Blood Glucose Arterial Blood Ionized Calcium Urine WBC (Auto) Coronavirus (PCR) SARS-CoV-2 IgG Ab Crossmatch 07/18/20 07/18/20 07/18/20 08:47 08:47 11:50 WBC 17.7 H RBC 3.29 L Hgb 10.5 L Hct 31.8 L MCV 97 H MCH MCHC RDW 16.9 H Lymph % (Auto) Armstrong % (Auto) 8.6 H Lymph # (Auto) Armstrong # (Auto) 1.5 H Baso # (Auto) Seg Neutrophils % 74.6 H Seg Neuts % (Manual) Lymphocytes % (Manual) Nucleated RBC % Seg Neutrophils # 13.2 H Seg Neutrophils # Man Lymphocytes # (Manual) Monocytes # (Manual) Eosinophils # (Manual) PT INR APTT D-Dimer Heparin Anti-Xa Level ABG pH POC ABG pCO2 POC ABG pO2 ABG pO2 ABG HCO3 ABG O2 Saturation ABG Base Excess ABG Hemoglobin ABG Oxyhemoglobin ABG Sodium ABG Potassium ABG Chloride ABG Glucose Oxyhemoglobin Carboxyhemoglobin Sodium Potassium 2.8 L* Chloride 92.6 L Carbon Dioxide 40 H BUN Creatinine 0.3 L Glucose 177 H POC Glucose 178 H Lactic Acid Calcium Magnesium Ferritin Total Bilirubin Direct Bilirubin AST ALT Alkaline Phosphatase Lactate Dehydrogenase C-Reactive Protein Total Protein Albumin Triglycerides Lipase Arterial Blood Glucose Arterial Blood Ionized Calcium Urine WBC (Auto) Coronavirus (PCR) SARS-CoV-2 IgG Ab Crossmatch 07/18/20 07/18/20 07/19/20 17:18 23:33 05:22 WBC RBC Hgb Hct MCV MCH MCHC RDW Lymph % (Auto) Armstrong % (Auto) Lymph # (Auto) Armstrong # (Auto) Baso # (Auto) Seg Neutrophils % Seg Neuts % (Manual) Lymphocytes % (Manual) Nucleated RBC % Seg Neutrophils # Seg Neutrophils # Man Lymphocytes # (Manual) Monocytes # (Manual) Eosinophils # (Manual) PT INR APTT D-Dimer Heparin Anti-Xa Level ABG pH POC ABG pCO2 POC ABG pO2 ABG pO2 ABG HCO3 ABG O2 Saturation ABG Base Excess ABG Hemoglobin ABG Oxyhemoglobin ABG Sodium ABG Potassium ABG Chloride ABG Glucose Oxyhemoglobin Carboxyhemoglobin Sodium Potassium Chloride Carbon Dioxide BUN Creatinine Glucose POC Glucose 171 H 162 H 166 H Lactic Acid Calcium Magnesium Ferritin Total Bilirubin Direct Bilirubin AST ALT Alkaline Phosphatase Lactate Dehydrogenase C-Reactive Protein Total Protein Albumin Triglycerides Lipase Arterial Blood Glucose Arterial Blood Ionized Calcium Urine WBC (Auto) Coronavirus (PCR) SARS-CoV-2 IgG Ab Crossmatch 07/19/20 07/19/20 07/19/20 12:00 16:27 23:41 WBC RBC Hgb Hct MCV MCH MCHC RDW Lymph % (Auto) Armstrong % (Auto) Lymph # (Auto) Armstrong # (Auto) Baso # (Auto) Seg Neutrophils % Seg Neuts % (Manual) Lymphocytes % (Manual) Nucleated RBC % Seg Neutrophils # Seg Neutrophils # Man Lymphocytes # (Manual) Monocytes # (Manual) Eosinophils # (Manual) PT INR APTT D-Dimer Heparin Anti-Xa Level ABG pH POC ABG pCO2 POC ABG pO2 ABG pO2 ABG HCO3 ABG O2 Saturation ABG Base Excess ABG Hemoglobin ABG Oxyhemoglobin ABG Sodium ABG Potassium ABG Chloride ABG Glucose Oxyhemoglobin Carboxyhemoglobin Sodium Potassium Chloride Carbon Dioxide BUN Creatinine Glucose POC Glucose 201 H 205 H 106 H Lactic Acid Calcium Magnesium Ferritin Total Bilirubin Direct Bilirubin AST ALT Alkaline Phosphatase Lactate Dehydrogenase C-Reactive Protein Total Protein Albumin Triglycerides Lipase Arterial Blood Glucose Arterial Blood Ionized Calcium Urine WBC (Auto) Coronavirus (PCR) SARS-CoV-2 IgG Ab Crossmatch 07/20/20 07/20/20 07/20/20 05:28 11:18 17:30 WBC RBC Hgb Hct MCV MCH MCHC RDW Lymph % (Auto) Armstrong % (Auto) Lymph # (Auto) Armstrong # (Auto) Baso # (Auto) Seg Neutrophils % Seg Neuts % (Manual) Lymphocytes % (Manual) Nucleated RBC % Seg Neutrophils # Seg Neutrophils # Man Lymphocytes # (Manual) Monocytes # (Manual) Eosinophils # (Manual) PT INR APTT D-Dimer Heparin Anti-Xa Level ABG pH POC ABG pCO2 POC ABG pO2 ABG pO2 ABG HCO3 ABG O2 Saturation ABG Base Excess ABG Hemoglobin ABG Oxyhemoglobin ABG Sodium ABG Potassium ABG Chloride ABG Glucose Oxyhemoglobin Carboxyhemoglobin Sodium Potassium Chloride Carbon Dioxide BUN Creatinine Glucose POC Glucose 130 H 195 H 141 H Lactic Acid Calcium Magnesium Ferritin Total Bilirubin Direct Bilirubin AST ALT Alkaline Phosphatase Lactate Dehydrogenase C-Reactive Protein Total Protein Albumin Triglycerides Lipase Arterial Blood Glucose Arterial Blood Ionized Calcium Urine WBC (Auto) Coronavirus (PCR) SARS-CoV-2 IgG Ab Crossmatch 07/20/20 07/21/20 07/21/20 23:26 05:03 17:03 WBC RBC Hgb Hct MCV MCH MCHC RDW Lymph % (Auto) Armstrong % (Auto) Lymph # (Auto) Armstrong # (Auto) Baso # (Auto) Seg Neutrophils % Seg Neuts % (Manual) Lymphocytes % (Manual) Nucleated RBC % Seg Neutrophils # Seg Neutrophils # Man Lymphocytes # (Manual) Monocytes # (Manual) Eosinophils # (Manual) PT INR APTT D-Dimer Heparin Anti-Xa Level ABG pH POC ABG pCO2 POC ABG pO2 ABG pO2 ABG HCO3 ABG O2 Saturation ABG Base Excess ABG Hemoglobin ABG Oxyhemoglobin ABG Sodium ABG Potassium ABG Chloride ABG Glucose Oxyhemoglobin Carboxyhemoglobin Sodium Potassium Chloride Carbon Dioxide BUN Creatinine Glucose POC Glucose 116 H 142 H 181 H Lactic Acid Calcium Magnesium Ferritin Total Bilirubin Direct Bilirubin AST ALT Alkaline Phosphatase Lactate Dehydrogenase C-Reactive Protein Total Protein Albumin Triglycerides Lipase Arterial Blood Glucose Arterial Blood Ionized Calcium Urine WBC (Auto) Coronavirus (PCR) SARS-CoV-2 IgG Ab Crossmatch 07/21/20 07/22/20 07/22/20 23:51 06:09 11:40 WBC RBC Hgb Hct MCV MCH MCHC RDW Lymph % (Auto) Armstrong % (Auto) Lymph # (Auto) Armstrong # (Auto) Baso # (Auto) Seg Neutrophils % Seg Neuts % (Manual) Lymphocytes % (Manual) Nucleated RBC % Seg Neutrophils # Seg Neutrophils # Man Lymphocytes # (Manual) Monocytes # (Manual) Eosinophils # (Manual) PT INR APTT D-Dimer Heparin Anti-Xa Level ABG pH POC ABG pCO2 POC ABG pO2 ABG pO2 ABG HCO3 ABG O2 Saturation ABG Base Excess ABG Hemoglobin ABG Oxyhemoglobin ABG Sodium ABG Potassium ABG Chloride ABG Glucose Oxyhemoglobin Carboxyhemoglobin Sodium Potassium Chloride Carbon Dioxide BUN Creatinine Glucose POC Glucose 127 H 136 H 160 H Lactic Acid Calcium Magnesium Ferritin Total Bilirubin Direct Bilirubin AST ALT Alkaline Phosphatase Lactate Dehydrogenase C-Reactive Protein Total Protein Albumin Triglycerides Lipase Arterial Blood Glucose Arterial Blood Ionized Calcium Urine WBC (Auto) Coronavirus (PCR) SARS-CoV-2 IgG Ab Crossmatch 07/22/20 07/22/20 07/23/20 18:14 23:25 05:58 WBC 12.2 H RBC 3.44 L Hgb 10.9 L Hct 33.9 L MCV 99 H MCH MCHC RDW 16.9 H Lymph % (Auto) Armstrong % (Auto) 10.0 H Lymph # (Auto) Armstrong # (Auto) 1.2 H Baso # (Auto) Seg Neutrophils % Seg Neuts % (Manual) Lymphocytes % (Manual) Nucleated RBC % Seg Neutrophils # 8.3 H Seg Neutrophils # Man Lymphocytes # (Manual) Monocytes # (Manual) Eosinophils # (Manual) PT INR APTT D-Dimer Heparin Anti-Xa Level ABG pH POC ABG pCO2 POC ABG pO2 ABG pO2 ABG HCO3 ABG O2 Saturation ABG Base Excess ABG Hemoglobin ABG Oxyhemoglobin ABG Sodium ABG Potassium ABG Chloride ABG Glucose Oxyhemoglobin Carboxyhemoglobin Sodium Potassium Chloride Carbon Dioxide BUN Creatinine Glucose POC Glucose 189 H 164 H Lactic Acid Calcium Magnesium Ferritin Total Bilirubin Direct Bilirubin AST ALT Alkaline Phosphatase Lactate Dehydrogenase C-Reactive Protein Total Protein Albumin Triglycerides Lipase Arterial Blood Glucose Arterial Blood Ionized Calcium Urine WBC (Auto) Coronavirus (PCR) SARS-CoV-2 IgG Ab Crossmatch 07/23/20 07/23/20 07/23/20 05:58 06:02 12:14 WBC RBC Hgb Hct MCV MCH MCHC RDW Lymph % (Auto) [place] % (Auto) Lymph # (Auto) Armstrong # (Auto) Baso # (Auto) Seg Neutrophils % Seg Neuts % (Manual) Lymphocytes % (Manual) Nucleated RBC % Seg Neutrophils # Seg Neutrophils # Man Lymphocytes # (Manual) Monocytes # (Manual) Eosinophils # (Manual) PT INR APTT D-Dimer Heparin Anti-Xa Level ABG pH POC ABG pCO2 POC ABG pO2 ABG pO2 ABG HCO3 ABG O2 Saturation ABG Base Excess ABG Hemoglobin ABG Oxyhemoglobin ABG Sodium ABG Potassium ABG Chloride ABG Glucose Oxyhemoglobin Carboxyhemoglobin Sodium Potassium 2.9 L* Chloride 94.9 L Carbon Dioxide 33 H D BUN Creatinine 0.4 L Glucose 129 H POC Glucose 111 H 142 H Lactic Acid Calcium Magnesium Ferritin Total Bilirubin Direct Bilirubin AST ALT Alkaline Phosphatase Lactate Dehydrogenase C-Reactive Protein Total Protein Albumin 3.5 L Triglycerides Lipase Arterial Blood Glucose Arterial Blood Ionized Calcium Urine WBC (Auto) Coronavirus (PCR) SARS-CoV-2 IgG Ab Crossmatch 07/23/20 07/23/20 07/24/20 17:20 23:39 05:05 WBC 13.3 H RBC 3.40 L Hgb 10.8 L Hct 33.4 L MCV 98 H MCH MCHC RDW 16.7 H Lymph % (Auto) Armstrong % (Auto) 10.0 H Lymph # (Auto) Armstrong # (Auto) 1.3 H Baso # (Auto) Seg Neutrophils % Seg Neuts % (Manual) Lymphocytes % (Manual) Nucleated RBC % Seg Neutrophils # 9.0 H Seg Neutrophils # Man Lymphocytes # (Manual) Monocytes # (Manual) Eosinophils # (Manual) PT INR APTT D-Dimer Heparin Anti-Xa Level ABG pH POC ABG pCO2 POC ABG pO2 ABG pO2 ABG HCO3 ABG O2 Saturation ABG Base Excess ABG Hemoglobin ABG Oxyhemoglobin ABG Sodium ABG Potassium ABG Chloride ABG Glucose Oxyhemoglobin Carboxyhemoglobin Sodium Potassium Chloride Carbon Dioxide BUN Creatinine Glucose POC Glucose 150 H 120 H Lactic Acid Calcium Magnesium Ferritin Total Bilirubin Direct Bilirubin AST ALT Alkaline Phosphatase Lactate Dehydrogenase C-Reactive Protein Total Protein Albumin Triglycerides Lipase Arterial Blood Glucose Arterial Blood Ionized Calcium Urine WBC (Auto) Coronavirus (PCR) SARS-CoV-2 IgG Ab Crossmatch 07/24/20 07/24/20 07/24/20 05:05 05:39 11:30 WBC RBC Hgb Hct MCV MCH MCHC RDW Lymph % (Auto) Armstrong % (Auto) Lymph # (Auto) Armstrong # (Auto) Baso # (Auto) Seg Neutrophils % Seg Neuts % (Manual) Lymphocytes % (Manual) Nucleated RBC % Seg Neutrophils # Seg Neutrophils # Man Lymphocytes # (Manual) Monocytes # (Manual) Eosinophils # (Manual) PT INR APTT D-Dimer Heparin Anti-Xa Level ABG pH POC ABG pCO2 POC ABG pO2 ABG pO2 ABG HCO3 ABG O2 Saturation ABG Base Excess ABG Hemoglobin ABG Oxyhemoglobin ABG Sodium ABG Potassium ABG Chloride ABG Glucose Oxyhemoglobin Carboxyhemoglobin Sodium Potassium Chloride 97.4 L Carbon Dioxide BUN Creatinine 0.3 L Glucose 111 H POC Glucose 118 H 160 H Lactic Acid Calcium Magnesium Ferritin Total Bilirubin Direct Bilirubin AST ALT Alkaline Phosphatase Lactate Dehydrogenase C-Reactive Protein Total Protein Albumin Triglycerides Lipase Arterial Blood Glucose Arterial Blood Ionized Calcium Urine WBC (Auto) Coronavirus (PCR) SARS-CoV-2 IgG Ab Crossmatch 07/24/20 07/24/20 07/25/20 16:45 23:43 05:00 WBC RBC Hgb Hct MCV MCH MCHC RDW Lymph % (Auto) Armstrong % (Auto) Lymph # (Auto) Armstrong # (Auto) Baso # (Auto) Seg Neutrophils % Seg Neuts % (Manual) Lymphocytes % (Manual) Nucleated RBC % Seg Neutrophils # Seg Neutrophils # Man Lymphocytes # (Manual) Monocytes # (Manual) Eosinophils # (Manual) PT INR APTT D-Dimer Heparin Anti-Xa Level ABG pH POC ABG pCO2 POC ABG pO2 ABG pO2 ABG HCO3 ABG O2 Saturation ABG Base Excess ABG Hemoglobin ABG Oxyhemoglobin ABG Sodium ABG Potassium ABG Chloride ABG Glucose Oxyhemoglobin Carboxyhemoglobin Sodium Potassium Chloride Carbon Dioxide BUN Creatinine Glucose POC Glucose 181 H 122 H 114 H Lactic Acid Calcium Magnesium Ferritin Total Bilirubin Direct Bilirubin AST ALT Alkaline Phosphatase Lactate Dehydrogenase C-Reactive Protein Total Protein Albumin Triglycerides Lipase Arterial Blood Glucose Arterial Blood Ionized Calcium Urine WBC (Auto) Coronavirus (PCR) SARS-CoV-2 IgG Ab Crossmatch 07/25/20 07/25/20 07/25/20 11:44 16:44 23:41 WBC RBC Hgb Hct MCV MCH MCHC RDW Lymph % (Auto) Armstrong % (Auto) Lymph # (Auto) Armstrong # (Auto) Baso # (Auto) Seg Neutrophils % Seg Neuts % (Manual) Lymphocytes % (Manual) Nucleated RBC % Seg Neutrophils # Seg Neutrophils # Man Lymphocytes # (Manual) Monocytes # (Manual) Eosinophils # (Manual) PT INR APTT D-Dimer Heparin Anti-Xa Level ABG pH POC ABG pCO2 POC ABG pO2 ABG pO2 ABG HCO3 ABG O2 Saturation ABG Base Excess ABG Hemoglobin ABG Oxyhemoglobin ABG Sodium ABG Potassium ABG Chloride ABG Glucose Oxyhemoglobin Carboxyhemoglobin Sodium Potassium Chloride Carbon Dioxide BUN Creatinine Glucose POC Glucose 298 H 166 H 133 H Lactic Acid Calcium Magnesium Ferritin Total Bilirubin Direct Bilirubin AST ALT Alkaline Phosphatase Lactate Dehydrogenase C-Reactive Protein Total Protein Albumin Triglycerides Lipase Arterial Blood Glucose Arterial Blood Ionized Calcium Urine WBC (Auto) Coronavirus (PCR) SARS-CoV-2 IgG Ab Crossmatch 07/26/20 07/26/20 07/26/20 05:17 11:17 18:07 WBC RBC Hgb Hct MCV MCH MCHC RDW Lymph % (Auto) Armstrong % (Auto) Lymph # (Auto) Armstrong # (Auto) Baso # (Auto) Seg Neutrophils % Seg Neuts % (Manual) Lymphocytes % (Manual) Nucleated RBC % Seg Neutrophils # Seg Neutrophils # Man Lymphocytes # (Manual) Monocytes # (Manual) Eosinophils # (Manual) PT INR APTT D-Dimer Heparin Anti-Xa Level ABG pH POC ABG pCO2 POC ABG pO2 ABG pO2 ABG HCO3 ABG O2 Saturation ABG Base Excess ABG Hemoglobin ABG Oxyhemoglobin ABG Sodium ABG Potassium ABG Chloride ABG Glucose Oxyhemoglobin Carboxyhemoglobin Sodium Potassium Chloride Carbon Dioxide BUN Creatinine Glucose POC Glucose 113 H 157 H 154 H Lactic Acid Calcium Magnesium Ferritin Total Bilirubin Direct Bilirubin AST ALT Alkaline Phosphatase Lactate Dehydrogenase C-Reactive Protein Total Protein Albumin Triglycerides Lipase Arterial Blood Glucose Arterial Blood Ionized Calcium Urine WBC (Auto) Coronavirus (PCR) SARS-CoV-2 IgG Ab Crossmatch 07/26/20 07/27/20 07/27/20 23:44 08:26 08:26 WBC RBC 3.63 L Hgb Hct MCV 98 H MCH MCHC RDW 17.5 H Lymph % (Auto) Armstrong % (Auto) 10.6 H Lymph # (Auto) Armstrong # (Auto) 1.1 H Baso # (Auto) Seg Neutrophils % Seg Neuts % (Manual) Lymphocytes % (Manual) Nucleated RBC % Seg Neutrophils # Seg Neutrophils # Man Lymphocytes # (Manual) Monocytes # (Manual) Eosinophils # (Manual) PT INR APTT D-Dimer Heparin Anti-Xa Level ABG pH POC ABG pCO2 POC ABG pO2 ABG pO2 ABG HCO3 ABG O2 Saturation ABG Base Excess ABG Hemoglobin ABG Oxyhemoglobin ABG Sodium ABG Potassium ABG Chloride ABG Glucose Oxyhemoglobin Carboxyhemoglobin Sodium Potassium Chloride 97.9 L Carbon Dioxide 37 H D BUN Creatinine 0.4 L Glucose 115 H POC Glucose 148 H Lactic Acid Calcium Magnesium Ferritin Total Bilirubin Direct Bilirubin AST ALT Alkaline Phosphatase Lactate Dehydrogenase C-Reactive Protein Total Protein Albumin Triglycerides Lipase Arterial Blood Glucose Arterial Blood Ionized Calcium Urine WBC (Auto) Coronavirus (PCR) SARS-CoV-2 IgG Ab Crossmatch 07/27/20 07/27/20 07/27/20 11:41 16:50 23:22 WBC RBC Hgb Hct MCV MCH MCHC RDW Lymph % (Auto) Armstrong % (Auto) Lymph # (Auto) Armstrong # (Auto) Baso # (Auto) Seg Neutrophils % Seg Neuts % (Manual) Lymphocytes % (Manual) Nucleated RBC % Seg Neutrophils # Seg Neutrophils # Man Lymphocytes # (Manual) Monocytes # (Manual) Eosinophils # (Manual) PT INR APTT D-Dimer Heparin Anti-Xa Level ABG pH POC ABG pCO2 POC ABG pO2 ABG pO2 ABG HCO3 ABG O2 Saturation ABG Base Excess ABG Hemoglobin ABG Oxyhemoglobin ABG Sodium ABG Potassium ABG Chloride ABG Glucose Oxyhemoglobin Carboxyhemoglobin Sodium Potassium Chloride Carbon Dioxide BUN Creatinine Glucose POC Glucose 169 H 132 H 120 H Lactic Acid Calcium Magnesium Ferritin Total Bilirubin Direct Bilirubin AST ALT Alkaline Phosphatase Lactate Dehydrogenase C-Reactive Protein Total Protein Albumin Triglycerides Lipase Arterial Blood Glucose Arterial Blood Ionized Calcium Urine WBC (Auto) Coronavirus (PCR) SARS-CoV-2 IgG Ab Crossmatch 07/28/20 07/29/20 07/29/20 17:39 14:14 16:32 WBC RBC Hgb Hct MCV MCH MCHC RDW Lymph % (Auto) Armstrong % (Auto) Lymph # (Auto) Armstrong # (Auto) Baso # (Auto) Seg Neutrophils % Seg Neuts % (Manual) Lymphocytes % (Manual) Nucleated RBC % Seg Neutrophils # Seg Neutrophils # Man Lymphocytes # (Manual) Monocytes # (Manual) Eosinophils # (Manual) PT INR APTT D-Dimer Heparin Anti-Xa Level ABG pH POC ABG pCO2 POC ABG pO2 ABG pO2 ABG HCO3 ABG O2 Saturation ABG Base Excess ABG Hemoglobin ABG Oxyhemoglobin ABG Sodium ABG Potassium ABG Chloride ABG Glucose Oxyhemoglobin Carboxyhemoglobin Sodium Potassium Chloride Carbon Dioxide BUN Creatinine Glucose POC Glucose 187 H 188 H 193 H Lactic Acid Calcium Magnesium Ferritin Total Bilirubin Direct Bilirubin AST ALT Alkaline Phosphatase Lactate Dehydrogenase C-Reactive Protein Total Protein Albumin Triglycerides Lipase Arterial Blood Glucose Arterial Blood Ionized Calcium Urine WBC (Auto) Coronavirus (PCR) SARS-CoV-2 IgG Ab Crossmatch 07/30/20 07/30/20 07/30/20 12:03 15:59 23:20 WBC RBC Hgb Hct MCV MCH MCHC RDW Lymph % (Auto) Armstrong % (Auto) Lymph # (Auto) Armstrong # (Auto) Baso # (Auto) Seg Neutrophils % Seg Neuts % (Manual) Lymphocytes % (Manual) Nucleated RBC % Seg Neutrophils # Seg Neutrophils # Man Lymphocytes # (Manual) Monocytes # (Manual) Eosinophils # (Manual) PT INR APTT D-Dimer Heparin Anti-Xa Level ABG pH POC ABG pCO2 POC ABG pO2 ABG pO2 ABG HCO3 ABG O2 Saturation ABG Base Excess ABG Hemoglobin ABG Oxyhemoglobin ABG Sodium ABG Potassium ABG Chloride ABG Glucose Oxyhemoglobin Carboxyhemoglobin Sodium Potassium Chloride Carbon Dioxide BUN Creatinine Glucose POC Glucose 133 H 191 H 144 H Lactic Acid Calcium Magnesium Ferritin Total Bilirubin Direct Bilirubin AST ALT Alkaline Phosphatase Lactate Dehydrogenase C-Reactive Protein Total Protein Albumin Triglycerides Lipase Arterial Blood Glucose Arterial Blood Ionized Calcium Urine WBC (Auto) Coronavirus (PCR) SARS-CoV-2 IgG Ab Crossmatch 07/31/20 07/31/20 07/31/20 05:28 12:01 16:43 WBC RBC Hgb Hct MCV MCH MCHC RDW Lymph % (Auto) Armstrong % (Auto) Lymph # (Auto) Armstrong # (Auto) Baso # (Auto) Seg Neutrophils % Seg Neuts % (Manual) Lymphocytes % (Manual) Nucleated RBC % Seg Neutrophils # Seg Neutrophils # Man Lymphocytes # (Manual) Monocytes # (Manual) Eosinophils # (Manual) PT INR APTT D-Dimer Heparin Anti-Xa Level ABG pH POC ABG pCO2 POC ABG pO2 ABG pO2 ABG HCO3 ABG O2 Saturation ABG Base Excess ABG Hemoglobin ABG Oxyhemoglobin ABG Sodium ABG Potassium ABG Chloride ABG Glucose Oxyhemoglobin Carboxyhemoglobin Sodium Potassium Chloride Carbon Dioxide BUN Creatinine Glucose POC Glucose 128 H 137 H 170 H Lactic Acid Calcium Magnesium Ferritin Total Bilirubin Direct Bilirubin AST ALT Alkaline Phosphatase Lactate Dehydrogenase C-Reactive Protein Total Protein Albumin Triglycerides Lipase Arterial Blood Glucose Arterial Blood Ionized Calcium Urine WBC (Auto) Coronavirus (PCR) SARS-CoV-2 IgG Ab Crossmatch 07/31/20 08/01/20 08/01/20 20:28 07:44 11:02 WBC RBC Hgb Hct MCV MCH MCHC RDW Lymph % (Auto) Armstrong % (Auto) Lymph # (Auto) Armstrong # (Auto) Baso # (Auto) Seg Neutrophils % Seg Neuts % (Manual) Lymphocytes % (Manual) Nucleated RBC % Seg Neutrophils # Seg Neutrophils # Man Lymphocytes # (Manual) Monocytes # (Manual) Eosinophils # (Manual) PT INR APTT D-Dimer Heparin Anti-Xa Level ABG pH POC ABG pCO2 POC ABG pO2 ABG pO2 ABG HCO3 ABG O2 Saturation ABG Base Excess ABG Hemoglobin ABG Oxyhemoglobin ABG Sodium ABG Potassium ABG Chloride ABG Glucose Oxyhemoglobin Carboxyhemoglobin Sodium Potassium Chloride Carbon Dioxide BUN Creatinine Glucose POC Glucose 142 H 111 H 137 H Lactic Acid Calcium Magnesium Ferritin Total Bilirubin Direct Bilirubin AST ALT Alkaline Phosphatase Lactate Dehydrogenase C-Reactive Protein Total Protein Albumin Triglycerides Lipase Arterial Blood Glucose Arterial Blood Ionized Calcium Urine WBC (Auto) Coronavirus (PCR) SARS-CoV-2 IgG Ab Crossmatch 08/01/20 08/01/20 08/02/20 15:46 20:46 05:55 WBC 12.4 H RBC Hgb Hct MCV 99 H MCH MCHC RDW 16.9 H Lymph % (Auto) Armstrong % (Auto) 9.7 H Lymph # (Auto) Armstrong # (Auto) 1.2 H Baso # (Auto) Seg Neutrophils % Seg Neuts % (Manual) Lymphocytes % (Manual) Nucleated RBC % Seg Neutrophils # 8.5 H Seg Neutrophils # Man Lymphocytes # (Manual) Monocytes # (Manual) Eosinophils # (Manual) PT INR APTT D-Dimer Heparin Anti-Xa Level ABG pH POC ABG pCO2 POC ABG pO2 ABG pO2 ABG HCO3 ABG O2 Saturation ABG Base Excess ABG Hemoglobin ABG Oxyhemoglobin ABG Sodium ABG Potassium ABG Chloride ABG Glucose Oxyhemoglobin Carboxyhemoglobin Sodium Potassium Chloride Carbon Dioxide BUN Creatinine Glucose POC Glucose 131 H 123 H Lactic Acid Calcium Magnesium Ferritin Total Bilirubin Direct Bilirubin AST ALT Alkaline Phosphatase Lactate Dehydrogenase C-Reactive Protein Total Protein Albumin Triglycerides Lipase Arterial Blood Glucose Arterial Blood Ionized Calcium Urine WBC (Auto) Coronavirus (PCR) SARS-CoV-2 IgG Ab Crossmatch 08/02/20 08/02/20 08/02/20 05:55 08:19 12:24 WBC RBC Hgb Hct MCV MCH MCHC RDW Lymph % (Auto) Armstrong % (Auto) Lymph # (Auto) Armstrong # (Auto) Baso # (Auto) Seg Neutrophils % Seg Neuts % (Manual) Lymphocytes % (Manual) Nucleated RBC % Seg Neutrophils # Seg Neutrophils # Man Lymphocytes # (Manual) Monocytes # (Manual) Eosinophils # (Manual) PT INR APTT D-Dimer Heparin Anti-Xa Level ABG pH POC ABG pCO2 POC ABG pO2 ABG pO2 ABG HCO3 ABG O2 Saturation ABG Base Excess ABG Hemoglobin ABG Oxyhemoglobin ABG Sodium ABG Potassium ABG Chloride ABG Glucose Oxyhemoglobin Carboxyhemoglobin Sodium Potassium 2.9 L* Chloride 96.5 L Carbon Dioxide 39 H BUN Creatinine 0.3 L Glucose 105 H POC Glucose 152 H 144 H Lactic Acid Calcium Magnesium Ferritin Total Bilirubin Direct Bilirubin AST ALT 118 H Alkaline Phosphatase Lactate Dehydrogenase C-Reactive Protein Total Protein Albumin 3.3 L Triglycerides Lipase Arterial Blood Glucose Arterial Blood Ionized Calcium Urine WBC (Auto) Coronavirus (PCR) SARS-CoV-2 IgG Ab Crossmatch 08/02/20 08/02/20 08/02/20 13:55 16:23 17:00 WBC RBC Hgb Hct MCV MCH MCHC RDW Lymph % (Auto) Armstrong % (Auto) Lymph # (Auto) Armstrong # (Auto) Baso # (Auto) Seg Neutrophils % Seg Neuts % (Manual) Lymphocytes % (Manual) Nucleated RBC % Seg Neutrophils # Seg Neutrophils # Man Lymphocytes # (Manual) Monocytes # (Manual) Eosinophils # (Manual) PT INR APTT D-Dimer Heparin Anti-Xa Level ABG pH POC ABG pCO2 POC ABG pO2 ABG pO2 ABG HCO3 ABG O2 Saturation ABG Base Excess ABG Hemoglobin ABG Oxyhemoglobin ABG Sodium ABG Potassium ABG Chloride ABG Glucose Oxyhemoglobin Carboxyhemoglobin Sodium Potassium 3.0 L Chloride Carbon Dioxide BUN Creatinine Glucose POC Glucose 142 H 193 H Lactic Acid Calcium Magnesium Ferritin Total Bilirubin Direct Bilirubin AST ALT Alkaline Phosphatase Lactate Dehydrogenase C-Reactive Protein Total Protein Albumin Triglycerides Lipase Arterial Blood Glucose Arterial Blood Ionized Calcium Urine WBC (Auto) Coronavirus (PCR) SARS-CoV-2 IgG Ab Crossmatch 08/02/20 08/03/20 08/03/20 21:21 05:18 08:05 WBC RBC Hgb Hct MCV MCH MCHC RDW Lymph % (Auto) Armstrong % (Auto) Lymph # (Auto) Armstrong # (Auto) Baso # (Auto) Seg Neutrophils % Seg Neuts % (Manual) Lymphocytes % (Manual) Nucleated RBC % Seg Neutrophils # Seg Neutrophils # Man Lymphocytes # (Manual) Monocytes # (Manual) Eosinophils # (Manual) PT INR APTT D-Dimer Heparin Anti-Xa Level ABG pH POC ABG pCO2 POC ABG pO2 ABG pO2 ABG HCO3 ABG O2 Saturation ABG Base Excess ABG Hemoglobin ABG Oxyhemoglobin ABG Sodium ABG Potassium ABG Chloride ABG Glucose Oxyhemoglobin Carboxyhemoglobin Sodium Potassium Chloride Carbon Dioxide 32 H D BUN Creatinine 0.4 L Glucose POC Glucose 161 H 107 H Lactic Acid Calcium Magnesium Ferritin Total Bilirubin Direct Bilirubin AST ALT Alkaline Phosphatase Lactate Dehydrogenase C-Reactive Protein Total Protein Albumin Triglycerides Lipase Arterial Blood Glucose Arterial Blood Ionized Calcium Urine WBC (Auto) Coronavirus (PCR) SARS-CoV-2 IgG Ab Crossmatch 08/03/20 12:03 WBC RBC Hgb Hct MCV MCH MCHC RDW Lymph % (Auto) Armstrong % (Auto) Lymph # (Auto) Armstrong # (Auto) Baso # (Auto) Seg Neutrophils % Seg Neuts % (Manual) Lymphocytes % (Manual) Nucleated RBC % Seg Neutrophils # Seg Neutrophils # Man Lymphocytes # (Manual) Monocytes # (Manual) Eosinophils # (Manual) PT INR APTT D-Dimer Heparin Anti-Xa Level ABG pH POC ABG pCO2 POC ABG pO2 ABG pO2 ABG HCO3 ABG O2 Saturation ABG Base Excess ABG Hemoglobin ABG Oxyhemoglobin ABG Sodium ABG Potassium ABG Chloride ABG Glucose Oxyhemoglobin Carboxyhemoglobin Sodium Potassium Chloride Carbon Dioxide BUN Creatinine Glucose POC Glucose 135 H Lactic Acid Calcium Magnesium Ferritin Total Bilirubin Direct Bilirubin AST ALT Alkaline Phosphatase Lactate Dehydrogenase C-Reactive Protein Total Protein Albumin Triglycerides Lipase Arterial Blood Glucose Arterial Blood Ionized Calcium Urine WBC (Auto) Coronavirus (PCR) SARS-CoV-2 IgG Ab Crossmatch Allied health notes reviewed: nursing
[2020-08-03] MEDS: ENOXAPARIN 40 MG/0.4 ML INJ SUB-Q SCH (23:48)
[2020-08-04] MEDS: MIDODRINE 5 MG TAB PO SCH ×3 (09:44→14:23)
[2020-08-04] MEDS: INSULIN LISPRO 100 UNIT/ML SUB-Q SCH ×3 (09:44→21:53)
[2020-08-04] MEDS: predniSONE 5 MG TAB PO SCH (10:21)
[2020-08-04] MEDS: FOLIC ACID 1 MG TAB PO SCH (10:21)
[2020-08-04] MEDS: LANSOPRAZOLE 30 MG SOLUTAB FEEDTUBE SCH (10:21)
[2020-08-04] MEDS: QUEtiapine 200 MG TAB PO SCH (10:22)
[2020-08-04] MEDS: guaiFENesin ER 600 MG TAB PO SCH ×2 (10:22→21:52)
[2020-08-04] MEDS: METOPROLOL TARTRATE 25 MG TAB PO SCH ×2 (10:22→21:52)
[2020-08-04] MEDS: PHENobarbital 32.4 MG TAB PO SCH ×2 (10:22→21:52)
--- NOTE | 2020-08-04 13:49 | Progress Note ---
Assessment and Plan Assessment and plan: Positive COVID-19 test; 05/10/2020 Negative COVID-19 test; 06/30/2020 --Acute hypoxemic respiratory failure; on 8 L oxygen Oxygen titrated to 3 to 4 L Pulmonary following DC planning per case management --Pneumothorax status post right chest tube Chest tube removed 07/23/2020 Post removal chest x-ray no pneumothorax Patient is requiring 3 to 4 L nasal cannula --Severe hypokalemia; resolved --Sinus tachycardia: Significantly improved Supportive care --Severe COVID-19 bilateral pneumonia Coronavirus protocol: Completed steroids and remdesivir therapy, isolation precautions, Received management per COVID-19 protocol Repeat ivory PCR test negative on 06/30/2020 Isolation discontinued --Elevated D-dimers; Patient had CTA chest ; negative for PE, patient already had lower extremity venous Doppler which was negative for DVT We will discontinue empiric therapeutic Lovenox, and change to DVT prophylaxis dose 40 mg subcu daily --Pseudomonas bacteremia; ID following, completed cefepime Monitor off antibiotics --Severe sepsis/septic shock, monitor off pressors Completed cefepime, monitor off antibiotics -- Acute kidney injury (SEN) , likely vasomotor nephropathy Resolved, avoid nephrotoxins --Acute on chronic anemia Guaiac test positive, GI evaluated the patient Patient H&H is normal range now Hb 11.8 -- Elevated liver function tests; resolved LFTs within normal limits --Colonic distention GI evaluated colonic distention resolved recommend stool softeners -- DVT prophylaxis On therapeutic Lovenox Chest tube removed Patient on 10 L nasal cannula oxygen, wean as tolerated Elevated D-dimers, on empiric therapeutic Lovenox CTA chest negative for PE,LE DVT negative, therapeutic Lovenox DC'd Changed to prophylactic Lovenox Discharge planning per case management reports that IRU is evaluating the patient for placement Patient is medically stable for discharge awaiting placement 07/23/2020; patient remains on high flow oxygen, wean oxygen as tolerated, severe hypokalemia Replenish per protocol monitor levels 07/24/2020; patient had chest tube removal yesterday 07/23/2019 and, post removal chest x-ray no pneumothorax no acute abnormalities Patient feels slightly better continues to require high flow oxygen Wean as tolerated, physical and occupational therapy, DC planning 07/26/2020; patient on 3 L nasal cannula oxygen, patient feels better 07/27/2020; patient was saturating well on 3 L of nasal cannula oxygen, however today patient is on high flow oxygen 15 L Complains of some congestion, wean oxygen levels to 3-5 as tolerated Discharge planning LTAC has refused patient,Possible home with home health versus placement when medically stable 07/28/2020; continue to wean oxygen, patient is on 10 L, awaiting placement 07/29/2020; continues to be on 10 L nasal cannula oxygen, wean as tolerated Patient is on empiric therapeutic dose Lovenox, due to elevated D-dimers Patient is stable for CTA chest today, follow the report and adjust Lovenox as needed DC planning per case management, with pending placement 07/30/2020; patient feels slightly better, oxygen reduced to 8 L of nasal cannula Will check PT OT, pending placement 07/31/2020 Patient on 8 L of nasal cannula oxygen 08/03/2020; patient's oxygen requirement has come down to 3-4 and half liters nasal cannula Will try to wean oxygen as tolerated, respiratory therapist assisting to reach the goal Possible discharge home in 1 to 2 days if stable Plan of care reviewed with the patient and his nurse 08/04/2020; patient is requiring 3 to 4 L nasal cannula oxygen, case management to set up home oxygen Patient is hemodynamically and clinically stable for discharge, pending placement IRU [facility] And of care reviewed with the patient and his nurse as well as the case management Medically stable for discharge History Interval history: I have seen and examined the patient at the bedside, patient's chart and medications reviewed Patient is requiring 4 L of nasal cannula oxygen No new complaints, vital signs noted Awaiting IRU evaluation for placement Hospitalist Physical - Constitutional Vitals: Temp Pulse Resp BP Pulse Ox 98.3 F 121 H 18 101/72 97 08/04/20 09:46 08/04/20 09:46 08/04/20 09:46 08/04/20 09:46 08/04/20 09:46 General appearance: Present: no acute distress, well-nourished - EENT Eyes: Present: PERRL, EOM intact - Neck Neck: Present: supple, normal ROM - Respiratory Respiratory effort: normal Respiratory: bilateral: diminished, negative: rales, rhonchi, wheezing - Cardiovascular Rhythm: regular Heart Sounds: Present: S1 & S2 - Extremities Extremities: no ischemia, No edema - Abdominal General gastrointestinal: soft, non-tender, non-distended, normal bowel sounds - Integumentary Integumentary: Present: clear, warm - Psychiatric Psychiatric: appropriate mood/affect, cooperative - Neurologic Neurologic: CNII-XII intact, moves all extremities HEART Score - HEART Score Troponin: Troponin T 0.015 ng/mL (0.00-0.029) 07/07/20 10:00 Results - Labs CBC & Chem 7: 08/02/20 05:55 08/03/20 05:18 Labs: Laboratory Last Values WBC 12.4 K/mm3 (4.5-11.0) H 08/02/20 05:55 RBC 3.85 M/mm3 (3.65-5.03) 08/02/20 05:55 Hgb 12.3 gm/dl (11.8-15.2) 08/02/20 05:55 Hct 37.9 % (35.5-45.6) 08/02/20 05:55 MCV 99 fl (84-94) H 08/02/20 05:55 MCH 32 pg (28-32) 08/02/20 05:55 MCHC 33 % (32-34) 08/02/20 05:55 RDW 16.9 % (13.2-15.2) H 08/02/20 05:55 Plt Count 267 K/mm3 (140-440) 08/02/20 05:55 Lymph % (Auto) 18.3 % (13.4-35.0) 08/02/20 05:55 [place] % (Auto) 9.7 % (0.0-7.3) H 08/02/20 05:55 Eos % (Auto) 3.3 % (0.0-4.3) 08/02/20 05:55 Baso % (Auto) 0.4 % (0.0-1.8) 08/02/20 05:55 Lymph # (Auto) 2.3 K/mm3 (1.2-5.4) 08/02/20 05:55 [place] # (Auto) 1.2 K/mm3 (0.0-0.8) H 08/02/20 05:55 Eos # (Auto) 0.4 K/mm3 (0.0-0.4) 08/02/20 05:55 Baso # (Auto) 0.1 K/mm3 (0.0-0.1) 08/02/20 05:55 Add Manual Diff Complete 07/13/20 08:31 Total Counted 100 07/13/20 08:31 Seg Neutrophils % 68.3 % (40.0-70.0) 08/02/20 05:55 Seg Neuts % (Manual) 96.0 % (40.0-70.0) H 07/13/20 08:31 Band Neutrophils % 0 % 07/13/20 08:31 Lymphocytes % (Manual) 2.0 % (13.4-35.0) L 07/13/20 08:31 Reactive Lymphs % (Man) 0 % 07/13/20 08:31 Monocytes % (Manual) 2.0 % (0.0-7.3) 07/13/20 08:31 Eosinophils % (Manual) 0 % (0.0-4.3) 07/13/20 08:31 Basophils % (Manual) 0 % (0.0-1.8) 07/13/20 08:31 Metamyelocytes % 0 % 07/13/20 08:31 Myelocytes % 0 % 07/13/20 08:31 Promyelocytes % 0 % 07/13/20 08:31 Blast Cells % 0 % 07/13/20 08:31 Nucleated RBC % Not Reportable 07/13/20 08:31 Seg Neutrophils # 8.5 K/mm3 (1.8-7.7) H 08/02/20 05:55 Seg Neutrophils # Man 20.4 K/mm3 (1.8-7.7) H 07/13/20 08:31 Band Neutrophils # 0.0 K/mm3 07/13/20 08:31 Lymphocytes # (Manual) 0.4 K/mm3 (1.2-5.4) L 07/13/20 08:31 Abs React Lymphs (Man) 0.0 K/mm3 07/13/20 08:31 Monocytes # (Manual) 0.4 K/mm3 (0.0-0.8) 07/13/20 08:31 Eosinophils # (Manual) 0.0 K/mm3 (0.0-0.4) 07/13/20 08:31 Basophils # (Manual) 0.0 K/mm3 (0.0-0.1) 07/13/20 08:31 Metamyelocytes # 0.0 K/mm3 07/13/20 08:31 Myelocytes # 0.0 K/mm3 07/13/20 08:31 Promyelocytes # 0.0 K/mm3 07/13/20 08:31 Blast Cells # 0.0 K/mm3 07/13/20 08:31 WBC Morphology Not Reportable 07/13/20 08:31 Hypersegmented Neuts Not Reportable 07/13/20 08:31 Hyposegmented Neuts Not Reportable 07/13/20 08:31 Hypogranular Neuts Not Reportable 07/13/20 08:31 Smudge Cells Not Reportable 07/13/20 08:31 Toxic Granulation Not Reportable 07/13/20 08:31 Toxic Vacuolation Not Reportable 07/13/20 08:31 Dohle Bodies Not Reportable 07/13/20 08:31 Pelger-Huet Anomaly Not Reportable 07/13/20 08:31 Jason Rods Not Reportable 07/13/20 08:31 Platelet Estimate Consistent w auto 07/13/20 08:31 Clumped Platelets Not Reportable 07/13/20 08:31 Plt Clumps, EDTA Not Reportable 07/13/20 08:31 Large Platelets Not Reportable 07/13/20 08:31 Giant Platelets Not Reportable 07/13/20 08:31 Platelet Satelliting Not Reportable 07/13/20 08:31 Plt Morphology Comment Not Reportable 07/13/20 08:31 RBC Morphology Not Reportable 07/13/20 08:31 Dimorphic RBCs Not Reportable 07/13/20 08:31 Polychromasia Not Reportable 07/13/20 08:31 Hypochromasia Not Reportable 07/13/20 08:31 Poikilocytosis Not Reportable 07/13/20 08:31 Anisocytosis Not Reportable 07/13/20 08:31 Microcytosis Not Reportable 07/13/20 08:31 Macrocytosis Not Reportable 07/13/20 08:31 Spherocytes Not Reportable 07/13/20 08:31 Pappenheimer Bodies Not Reportable 07/13/20 08:31 Sickle Cells Not Reportable 07/13/20 08:31 Target Cells Not Reportable 07/13/20 08:31 Tear Drop Cells Not Reportable 07/13/20 08:31 Ovalocytes Not Reportable 07/13/20 08:31 Stomatocytes Few 07/13/20 08:31 Helmet Cells Not Reportable 07/13/20 08:31 Sinclair-Wink Bodies Not Reportable 07/13/20 08:31 Talihina Rings Not Reportable 07/13/20 08:31 Izabella Cells Not Reportable 07/13/20 08:31 Bite Cells Not Reportable 07/13/20 08:31 Crenated Cell Not Reportable 07/13/20 08:31 Elliptocytes Not Reportable 07/13/20 08:31 Acanthocytes (Spur) Not Reportable 07/13/20 08:31 Rouleaux Not Reportable 07/13/20 08:31 Hemoglobin C Crystals Not Reportable 07/13/20 08:31 Schistocytes Not Reportable 07/13/20 08:31 Malaria parasites Not Reportable 07/13/20 08:31 Josue Bodies Not Reportable 07/13/20 08:31 Hem Pathologist Commnt No 07/13/20 08:31 PT 11.8 Sec. (12.2-14.9) L 06/22/20 14:29 INR 0.88 (0.87-1.13) 06/22/20 14:29 APTT 23.5 Sec. (24.2-36.6) L 06/22/20 14:29 D-Dimer 1887.82 ng/mlDDU (0-234) H 05/20/20 08:16 Heparin Anti-Xa Level 0.37 U.I./ml (0.3-0.7) 07/02/20 16:08 ABG pH 7.477 (7.320-7.450) H 07/13/20 13:52 POC ABG pCO2 54.4 mmHg (32.0-48.0) H 07/13/20 13:52 ABG pCO2 53.1 mm Hg 07/08/20 Unknown POC ABG pO2 126.8 mmHg (83-108) H 07/13/20 13:52 ABG pO2 75.3 mm Hg (80.0-90.0) L 07/08/20 Unknown POC ABG HCO3 39.3 07/13/20 13:52 ABG HCO3 34.3 mmol/L (20.0-26.0) H 07/08/20 Unknown ABG O2 Saturation 96.5 % (95.0-99.0) 07/08/20 Unknown ABG O2 Content 13.5 (0.0-44) 07/08/20 Unknown POC ABG Base Excess 13.8 07/13/20 13:52 ABG Base Excess 8.7 mmol/L (-2.0-3.0) H 07/08/20 Unknown ABG Hemoglobin 11.5 (12.0-17.5) L 07/13/20 13:52 ABG Oxyhemoglobin 97.7 (94-98) 07/13/20 13:52 ABG Carboxyhemoglobin 2.4 % (0.0-5.0) 07/08/20 Unknown ABG Methemoglobin 0 (0.0-1.5) 07/13/20 13:52 ABG Sodium 136.2 mmol/L (136.0-145.0) 07/13/20 13:52 ABG Potassium 3.2 mmol/L (3.40-4.50) L 07/13/20 13:52 ABG Chloride 92.0 mmol/L (98-107) L 07/13/20 13:52 ABG Glucose 169 mg/dL (65-95) H 07/13/20 13:52 Oxyhemoglobin 93.7 % (95.0-99.0) L 07/08/20 Unknown Carboxyhemoglobin 1.2 (0.5-1.5) 07/13/20 13:52 FiO2 45 07/13/20 13:52 Sodium 142 mmol/L (137-145) 08/03/20 05:18 Potassium 3.8 mmol/L (3.6-5.0) D 08/03/20 05:18 Chloride 100.0 mmol/L (98-107) 08/03/20 05:18 Carbon Dioxide 32 mmol/L (22-30) H D 08/03/20 05:18 Anion Gap 14 mmol/L 08/03/20 05:18 BUN 14 mg/dL (9-20) 08/03/20 05:18 Creatinine 0.4 mg/dL (0.8-1.3) L 08/03/20 05:18 Estimated GFR > 60 ml/min 08/03/20 05:18 BUN/Creatinine Ratio 35 % 08/03/20 05:18 Glucose 100 mg/dL (75-100) 08/03/20 05:18 POC Glucose 167 mg/dL (70-105) H 08/03/20 20:20 Lactic Acid 0.80 mmol/L (0.7-2.0) 07/13/20 15:45 Calcium 9.3 mg/dL (8.4-10.2) 08/03/20 05:18 Phosphorus 3.10 mg/dL (2.5-4.5) 06/15/20 04:00 Magnesium 2.00 mg/dL (1.7-2.3) 07/24/20 05:05 Ferritin 1496.0 ng/mL (30.0-300.0) H 06/14/20 11:50 Total Bilirubin 0.30 mg/dL (0.1-1.2) 08/02/20 05:55 Direct Bilirubin 0.6 mg/dL (0-0.2) H 05/11/20 07:30 Indirect Bilirubin 0.9 mg/dL 05/11/20 07:30 AST 37 units/L (5-40) 08/02/20 05:55 ALT 118 units/L (7-56) H 08/02/20 05:55 Alkaline Phosphatase 88 units/L (35-129) 08/02/20 05:55 Lactate Dehydrogenase 705 units/L (91-180) H 05/20/20 08:16 Troponin T 0.015 ng/mL (0.00-0.029) 07/07/20 10:00 C-Reactive Protein 3.10 mg/dL (0.00-1.30) H 05/20/20 08:16 Total Protein 6.4 g/dL (6.3-8.2) 08/02/20 05:55 Albumin 3.3 g/dL (3.9-5) L 08/02/20 05:55 Albumin/Globulin Ratio 1.1 % 08/02/20 05:55 Triglycerides 452 mg/dL (2-149) H 06/30/20 07:00 Lipase 86 units/L (13-60) H 06/29/20 09:36 Procalcitonin 2.15 ng/mL (<0.15) 07/15/20 05:31 Arterial Blood Glucose 169 mg/dL (65-95) H 07/13/20 13:52 Arterial Blood Ionized Calcium 4.8 mg/dL (4.6-5.3) 07/13/20 13:52 Urine Color Fauzia (Yellow) 05/10/20 Unknown Urine Turbidity Clear (Clear) 05/10/20 Unknown Urine pH 5.0 (5.0-7.0) 05/10/20 Unknown Ur Specific [place] 1.019 (1.003-1.030) 05/10/20 Unknown Urine Protein 100 mg/dl mg/dL (Negative) 05/10/20 Unknown Urine Glucose (UA) Neg mg/dL (Negative) 05/10/20 Unknown Urine Ketones Neg mg/dL (Negative) 05/10/20 Unknown Urine Blood Lg (Negative) 05/10/20 Unknown Urine Nitrite Neg (Negative) 05/10/20 Unknown Urine Bilirubin Neg (Negative) 05/10/20 Unknown Urine Urobilinogen 2.0 mg/dL (<2.0) 05/10/20 Unknown Ur Leukocyte Esterase Neg (Negative) 05/10/20 Unknown Urine WBC (Auto) 11.0 /HPF (0.0-6.0) H 05/10/20 Unknown Urine RBC (Auto) 2.0 /HPF (0.0-6.0) 05/10/20 Unknown U Epithel Cells (Auto) 1.0 /HPF (0-13.0) 05/10/20 Unknown Urine Bacteria (Auto) 1+ /HPF (Negative) 05/10/20 Unknown Urine Mucus Few /HPF 05/10/20 Unknown Plasma/Serum Alcohol < 0.01 % (0-0.07) 05/09/20 14:20 Coronavirus (PCR) Negative (Negative) 06/30/20 10:28 Hepatitis A Ab Total Nonreactive (Nonreactive) 07/09/20 Unknown Hep B Core Total Ab Nonreactive (Nonreactive) 07/09/20 Unknown Hepatitis C RNA Quant See scanned result 07/09/20 Unknown SARS-CoV-2 IgG Ab Reactive (NonReactive) A 05/11/20 07:30 Blood Type B POSITIVE 06/21/20 14:18 Antibody Screen Negative 06/21/20 14:18 Crossmatch See Detail 06/21/20 14:18 - Diagnostic Impressions Diagnostic Impressions: Echocardiogram 05/20/20 13:02 Transthoracic Echocardiogram Indication: CHF BP: 97/73 Conclusions *The study quality is technically very difficult and limited. *The left ventricular chamber size, wall thickness and systolic function are within normal limits. There are no wall motion abnormalities observed. Ejection fraction is normal. *The estimated ejection fraction is 60-65%. *The pericardium appears normal. Findings Procedure Info: The study quality is technically difficult. Left Ventricle: The left ventricular chamber size, wall thickness and systolic function are within normal limits. There are no wall motion abnormalities observed. Ejection fraction is normal. The estimated ejection fraction is 60-65%. Abnormal left ventricular diastolic filling is observed, consistent with impaired relaxation. Left Atrium: The left atrium is normal in size with no visual thrombus identified. Right Ventricle: The right ventricle is not well visualized. Right Atrium: The right atrium is not well visualized. Aortic Valve: The aortic valve is trileaflet. The leaflets are thin with normal excursion. There is no aortic stenosis or regurgitation present. Mitral Valve: The mitral valve appears normal in structure and function. Tricuspid Valve: The tricuspid valve appears normal in structure and function. Unable to estimate the right ventricular systolic pressure. Pulmonic Valve: The pulmonic valve is not well visualized. There is no evidence of pulmonic regurgitation. There is no pulmonic stenosis. Pericardium: The pericardium appears normal. Pulmonary Artery: The main pulmonary artery is not well visualized. Venous: The inferior vena cava appears normal in size. Measurements Chambers 2D Name Value Normal Range IVSd (2D) 0.83 cm (0.6 - 1.1) LVPWd (2D) 0.83 cm (0.6 - 1.1) LVIDd (2D) 3.88 cm (3.7 - 5.6) LVIDs (2D) 2.46 cm (2 - 3.8) LV FS (2D) 36.52 % - EF Teichholz (2D) 66.97 % - Ao root diameter (2D) 3.47 cm (2 - 3.7) Volumes/Mass Name Value Normal Range LA ESV SP 4CH (A/L) 22.4 ml - LA ESV SP 2CH (A/L) 22.89 ml - LA ESV BP (A/L) 23.06 ml - LA ESV SP 4CH (MOD) 21.09 ml - LA ESV SP 2CH (MOD) 22.44 ml - Diastolic/Systolic Function Name Value Normal Range MV E-wave Vmax 0.48 m/sec - MV deceleration time 156.3 msec - MV A-wave Vmax 0.59 m/sec - MV E:A ratio 0.81 ratio - Aortic Valve Name Value Normal Range AV Vmax 0.97 m/sec - AV VTI 14.49 cm - AV peak gradient 3.73 mmHg - AV mean gradient 1.89 mmHg - LVOT diameter 2.09 cm - LVOT Vmax 0.72 m/sec - LVOT VTI 10.21 cm - LVOT peak gradient 2.05 mmHg - LVOT mean gradient 1.03 mmHg - SV LVOT 35.17 ml - INNA (continuity Vmax) 2.55 cm2 - INNA (continuity VTI) 2.43 cm2 - Tricuspid Valve Name Value Normal Range TV E-wave Vmax 0.37 m/sec - Pulmonic Valve/Qp:Qs Name Value Normal Range PV Vmax 0.72 m/sec - PV peak gradient 2.06 mmHg - RVOT Vmax 0.85 m/sec - RVOT VTI 9.89 cm - RVOT peak gradient 2.9 mmHg - PV acceleration time 72.31 msec - Cantor/IV: Voiding Method Toilet IV Catheter Type [Right Wrist] INT / Saline Lock IV Catheter Type [Right Upper Peripheral IV arm] IV Catheter Type [Right CVL Internal Jugular] IV Catheter Type [Right Peripheral IV Forearm] IV Catheter Type [Left Forearm INT / Saline Lock ] IV Catheter Type [Left Wrist] INT / Saline Lock IV Catheter Type [Right Hand] INT / Saline Lock IV Catheter Type [Left Hand] INT / Saline Lock IV Catheter Type [Left Peripheral IV Antecubital] Active Medications - Current Medications Current Medications: Generic Name Dose Route Start Last Admin Trade Name Freq PRN Reason Stop Dose Admin Alprazolam 0.25 mg 05/20/20 17:53 07/26/20 09:37 Alprazolam 0.25 Mg Tab PO 0.25 mg Q8H PRN Administration Anxiety Lipase/Protease/Amylase 1 each 05/22/20 13:01 Lipase 10,500/Protease 25,000/Amylase 43,750 (Units) Dr Newell FEEDTUBE PRN PRN For Clogged Feeding Tube Bisacodyl 10 mg 07/14/20 11:00 Bisacodyl 10 Mg Rect Supp NM BID PRN Laxative Effect Enoxaparin Sodium 40 mg 07/29/20 22:00 08/03/20 23:48 Enoxaparin 40 Mg/0.4 Ml Inj SUB-Q 40 mg QDAY@2200 DESIRE Administration Protocol Folic Acid 1 mg 05/09/20 15:36 08/04/20 10:21 Folic Acid 1 Mg Tab PO 1 mg QDAY DESIRE Administration Guaifenesin 600 mg 07/19/20 23:00 08/04/20 10:22 Guaifenesin Er 600 Mg Tab PO 600 mg BID DESIRE Administration Hydrophilic Ointment 1 applic 05/21/20 20:33 Lip Therapy Vaseline TP Q2HR PRN Dry Lips Insulin Human Lispro 0 unit 07/31/20 07:30 08/04/20 09:44 Insulin Lispro 100 Unit/Ml SUB-Q Not Given ACHS [facility] Protocol Lansoprazole 30 mg 06/28/20 10:00 08/04/20 10:21 Lansoprazole 30 Mg Solutab FEEDTUBE 30 mg QDAY DESIER Administration Metoprolol Tartrate 5 mg 07/02/20 17:17 07/08/20 14:38 Metoprolol Tartrate 5 Mg/5 Ml Inj IV 5 mg Q6HR PRN Administration Tachyarrhythmias Metoprolol Tartrate 12.5 mg 07/17/20 12:00 08/04/20 10:22 Metoprolol Tartrate 25 Mg Tab PO 12.5 mg BID DESIRE Administration Midodrine 10 mg 06/30/20 16:00 08/04/20 10:21 Midodrine 5 Mg Tab PO 10 mg TID@0800,1200,1600 [facility] Administration Multi-Ingred Cream/Lotion/Oil/Oint 1 applic 05/21/20 20:33 Mineral Oil/Petrolatum, White Ophth Oint 3.5 Gm OU Q4HR PRN Dry Eye(s) Olanzapine 5 mg 07/17/20 22:00 08/03/20 23:48 Olanzapine 5 Mg Tab PO 5 mg QHS DESIRE Administration Phenobarbital 32.4 mg 07/04/20 22:00 08/04/20 10:22 Phenobarbital 32.4 Mg Tab PO 32.4 mg BID DESIRE Administration Prednisone 5 mg 08/04/20 10:00 Prednisone 5 Mg Tab PO 08/06/20 10:01 QDAY DESIRE Prednisone 2.5 mg 08/07/20 10:00 Prednisone 5 Mg Tab PO 08/09/20 10:01 QDAY DESIRE Quetiapine Fumarate 200 mg 07/16/20 10:00 08/04/20 10:22 Quetiapine 200 Mg Tab PO 200 mg QAM DESIRE Administration Senna 17.2 mg 07/14/20 11:00 08/03/20 16:46 Sennosides 8.6 Mg Tab PO 8.6 mg BID PRN Administration Laxative Effect Nutrition/Malnutrition Assess - Dietary Evaluation Nutrition/Malnutrition Findings: Nutrition Notes Start: 05/17/20 14:10 Freq: Status: Active Protocol: Document 08/04/20 11:40 CECY (Rec: 08/04/20 11:45 CECY [id number]) Co-Sign 08/04/20 11:40 MK Nutrition Notes Initial or Follow up Reassessment Current Diagnosis Decubitus(Pressure Ulcer), Sepsis,Respiratory Failure Other Pertinent Diagnosis Bilat pneu, COVID-19 (-), EtOH dependence Current Diet Regular diet Labs/Tests Cr 0.4 BG 100 POC 167 Pertinent Medications Folic Acid Prednisone Height 6 ft Weight 98.2 kg Usual Body Weight 118 kg Velva Body Weight (kg) 80.90 BMI 29.3 Weight Status Overweight Subjective/Other Information F/u intakes, ONS, and Sammy. Pt reported eating very well, drinking ONS and Sammy. Percent of energy/protein needs met: 100%/100% Burn Absent Trauma Absent GI Symptoms None Current % PO Good (75-100%) Minimum of two criteria Yes Interpretation of Weight Loss (severe) >5% in 1 month Muscle Mass Mild Depletion (non-severe) #4 Nutrition Diagnosis Food and nutrition-related knowledge deficit As Evidenced by Signs and Symptoms Pt had no questions Diagnosis Progress(for reassessment Resolved documentation) #3 Nutrition Diagnosis Malnutrition Diagnosis Progress(for reassessment Continues documentation) #2 Nutrition Diagnosis Increased nutrient needs ( specify in comment below) Diagnosis Progress(for reassessment Continues documentation) Is patient on ventilator? No Is Patient Ambulatory and/or Out of Bed No REE-([place]-confined to bed) 2253.720 Kcal/Kg value to use for calculation 21 Approximate Energy Requirements Using 2062 kcal/Kg Calculation Used for Recommendations Kcal/kg Additional Notes Protein: 106-134 g (1.2-1.5 g/ kg AdBW 89 kg) Fluid: 1ml/kcal Nutrition Intervention Change Diet Order: Continue diet Add Supplement/Snack (indicate name/kcal Ensure High Protein daily /protein ) Sammy BID Provides kCal: 350 Provides Protein (gm) 21 Goal #1 Meet at least 75% protein and energy needs via PO Goal #2 ONS tolerance Goal #3 Intake of Sammy BID Anticipated Discharge Needs: Regular, healthful diet and Sammy BID and increased protein intake until pressure ulcer is healed. Follow-Up By: 08/11/20 Additional Comments F/u intakes, ONS and Sammy tolerance/intake
[2020-08-04] MEDS: ENOXAPARIN 40 MG/0.4 ML INJ SUB-Q SCH (21:52)
[2020-08-05] MEDS: MIDODRINE 5 MG TAB PO SCH ×4 (08:17→18:37)
[2020-08-05] MEDS: INSULIN LISPRO 100 UNIT/ML SUB-Q SCH ×4 (08:17→22:55)
[2020-08-05] MEDS: guaiFENesin ER 600 MG TAB PO SCH ×2 (13:52→22:55)
[2020-08-05] MEDS: LANSOPRAZOLE 30 MG SOLUTAB FEEDTUBE SCH (13:52)
[2020-08-05] MEDS: PHENobarbital 32.4 MG TAB PO SCH ×2 (13:53→22:50)
[2020-08-05] MEDS: QUEtiapine 200 MG TAB PO SCH (13:53)
[2020-08-05] MEDS: predniSONE 5 MG TAB PO SCH (13:53)
[2020-08-05] MEDS: METOPROLOL TARTRATE 25 MG TAB PO SCH ×2 (13:53→22:55)
[2020-08-05] MEDS: FOLIC ACID 1 MG TAB PO SCH (13:53)
--- NOTE | 2020-08-05 14:30 | Progress Note ---
Assessment and Plan Acute hypoxemic respiratory failure due to COVID-19 Severe Sepsis Bilateral pneumonia Acute kidney injury (SEN) with acute tubular necrosis (ATN) Alcohol dependence Elevated liver function tests - he will benefit from a SNF vs Acute rehabilitation - continue to wean supplemental oxygen for target O2 sat's > 92% acutely - continue aspiration precautions - continue psychoactive medications per mental health team - continue care as below otherwise; - Psychiatry input appreciated - continue BIPAP scheduled qhs with prn daytime use - continue bid protonix - continue bowel regimen - aspiration precautions - continue bronchodilators with pulmonary hygiene per RT - accuchecks with glycemic control per SSI for target blood glucose of < 180 mg/dL; avoid hypoglycemia - enteral nutritional support at goal rate as tolerated - repeat COVID-19 testing is negative X 2 - continue Zinc & Vit C supplementaion - wean systemic steroids for Asthma / severe COVID infection - continue empiric full dose anticoagulation re: elevated d-dimers / hypercoagulable state - completed remdesivir dosing (total 5 days) - empiric AB's coverage per ID rec's - avoid nephrotoxins, renally dose all medications - continue to avoid benzodiazepine's, reduce the possibility of delirium - continue wound care per RN / WCN - prn analgesia per CPOT score - Maintenance of sleep-wake cycle, avoid delirium - continue to avoid benzodiazepine's, reduce the possibility of delirium - G.I. & VTE prophylaxis - PT/OT/ROM exercises - continue mobility protocols for pressure ulcer prophylaxis - Monitor hemodynamics closely - continue other care per attending / other consultants - discharge planning ongoing concurrently - transfer to telemetry floor ok .... Re-evaluate in am & prn CONDITION: STABLE PROGNOSIS: IMPROVED CODE STATUS: FULL CODE Subjective Date of service: 08/05/20 Principal diagnosis: Ac hypoxemic resp failure; COVID-19; Severe Sepsis; Shaggy PNA; Alcohol Abuse Interval history: Patient is seen today for: Acute hypoxemic respiratory failure due to COVID-19; Severe Sepsis; Bilateral pneumonia; Alcohol dependence; Elevated liver function tests Seen and examined at bedside; 24hour events reviewed; nursing and respiratory care staff consulted; no adverse overnight events reported to me; resting in bed; remains on supplemental oxygen; feels better; more coherent; awaiting transfer to rehab facility Objective Vital Signs - 12hr 08/05/20 08/05/20 08/05/20 03:42 07:47 08:16 Temperature 99.8 F H 99.2 F Pulse Rate 118 H 117 H Respiratory 24 18 Rate Blood Pressure 107/61 108/71 O2 Sat by Pulse 96 97 91 Oximetry Constitutional: no acute distress, alert, other (elderly obese male with mildly increased respiratory effort at rest) Eyes: non-icteric ENT: oropharynx moist, other (extubated) Neck: supple, no JVD Effort: mildly labored Ascultation: Bilateral: diminished breath sounds, rhonchi (scant bases) Percussion: Bilateral: not dull Cardiovascular: regular rate and rhythm, other (No R/M) Gastrointestinal: normoactive bowel sounds, soft, non-tender, non-distended (protuberant) Integumentary: normal Extremities: no cyanosis, no edema, pulses normal, no ischemia or petechiae Neurologic: non-focal exam (non focal grossly; weak), pupils equal and round, CN II-XII normal, motor strength normal and (weak ) Psychiatric: mood appropriate, affect normal CBC and BMP: 08/02/20 05:55 08/03/20 05:18 ABG, PT/INR, D-dimer: ABG ABG pH 7.477 (7.320-7.450) H 07/13/20 13:52 POC ABG pCO2 54.4 mmHg (32.0-48.0) H 07/13/20 13:52 ABG pCO2 53.1 mm Hg 07/08/20 Unknown POC ABG pO2 126.8 mmHg (83-108) H 07/13/20 13:52 ABG pO2 75.3 mm Hg (80.0-90.0) L 07/08/20 Unknown POC ABG HCO3 39.3 07/13/20 13:52 ABG O2 Saturation 96.5 % (95.0-99.0) 07/08/20 Unknown PT/INR, D-dimer PT 11.8 Sec. (12.2-14.9) L 06/22/20 14:29 INR 0.88 (0.87-1.13) 06/22/20 14:29 D-Dimer 1887.82 ng/mlDDU (0-234) H 05/20/20 08:16 Abnormal lab findings: Abnormal Labs 05/09/20 05/09/20 05/09/20 12:59 12:59 12:59 WBC 11.8 H RBC Hgb Hct MCV 96 H MCH 34 H MCHC 35 H RDW Lymph % (Auto) 6.9 L [place] % (Auto) Lymph # (Auto) 0.8 L [place] # (Auto) Baso # (Auto) Seg Neutrophils % 87.5 H Seg Neuts % (Manual) Lymphocytes % (Manual) Nucleated RBC % Seg Neutrophils # 10.3 H Seg Neutrophils # Man Lymphocytes # (Manual) Monocytes # (Manual) Eosinophils # (Manual) PT INR APTT D-Dimer Heparin Anti-Xa Level ABG pH POC ABG pCO2 POC ABG pO2 ABG pO2 ABG HCO3 ABG O2 Saturation ABG Base Excess ABG Hemoglobin ABG Oxyhemoglobin ABG Sodium ABG Potassium ABG Chloride ABG Glucose Oxyhemoglobin Carboxyhemoglobin Sodium 130 L Potassium 3.5 L Chloride 86.4 L Carbon Dioxide BUN 33 H Creatinine 2.3 H Glucose 156 H POC Glucose Lactic Acid Calcium Magnesium Ferritin Total Bilirubin 3.40 H Direct Bilirubin 1.7 H AST 385 H ALT 134 H Alkaline Phosphatase Lactate Dehydrogenase C-Reactive Protein Total Protein Albumin 3.0 L Triglycerides Lipase Arterial Blood Glucose Arterial Blood Ionized Calcium Urine WBC (Auto) Coronavirus (PCR) SARS-CoV-2 IgG Ab Crossmatch 05/09/20 05/09/20 05/09/20 12:59 12:59 12:59 WBC RBC Hgb Hct MCV MCH MCHC RDW Lymph % (Auto) [place] % (Auto) Lymph # (Auto) [place] # (Auto) Baso # (Auto) Seg Neutrophils % Seg Neuts % (Manual) Lymphocytes % (Manual) Nucleated RBC % Seg Neutrophils # Seg Neutrophils # Man Lymphocytes # (Manual) Monocytes # (Manual) Eosinophils # (Manual) PT INR APTT D-Dimer 3242.51 H Heparin Anti-Xa Level ABG pH POC ABG pCO2 POC ABG pO2 ABG pO2 ABG HCO3 ABG O2 Saturation ABG Base Excess ABG Hemoglobin ABG Oxyhemoglobin ABG Sodium ABG Potassium ABG Chloride ABG Glucose Oxyhemoglobin Carboxyhemoglobin Sodium Potassium Chloride Carbon Dioxide BUN Creatinine Glucose 158 H POC Glucose Lactic Acid 3.50 H* Calcium Magnesium Ferritin Total Bilirubin Direct Bilirubin AST ALT Alkaline Phosphatase Lactate Dehydrogenase 2166 H C-Reactive Protein 39.00 H Total Protein Albumin Triglycerides Lipase Arterial Blood Glucose Arterial Blood Ionized Calcium Urine WBC (Auto) Coronavirus (PCR) SARS-CoV-2 IgG Ab Crossmatch 05/09/20 05/09/20 05/09/20 12:59 14:20 14:20 WBC RBC Hgb Hct MCV MCH MCHC RDW Lymph % (Auto) [place] % (Auto) Lymph # (Auto) [place] # (Auto) Baso # (Auto) Seg Neutrophils % Seg Neuts % (Manual) Lymphocytes % (Manual) Nucleated RBC % Seg Neutrophils # Seg Neutrophils # Man Lymphocytes # (Manual) Monocytes # (Manual) Eosinophils # (Manual) PT INR APTT D-Dimer 2861.78 H Heparin Anti-Xa Level ABG pH POC ABG pCO2 POC ABG pO2 ABG pO2 ABG HCO3 ABG O2 Saturation ABG Base Excess ABG Hemoglobin ABG Oxyhemoglobin ABG Sodium ABG Potassium ABG Chloride ABG Glucose Oxyhemoglobin Carboxyhemoglobin Sodium Potassium Chloride Carbon Dioxide BUN Creatinine Glucose POC Glucose Lactic Acid 2.20 H* Calcium Magnesium Ferritin 97586.0 H Total Bilirubin Direct Bilirubin AST ALT Alkaline Phosphatase Lactate Dehydrogenase C-Reactive Protein Total Protein Albumin Triglycerides Lipase Arterial Blood Glucose Arterial Blood Ionized Calcium Urine WBC (Auto) Coronavirus (PCR) SARS-CoV-2 IgG Ab Crossmatch 05/09/20 05/09/20 05/09/20 14:20 14:20 15:56 WBC RBC Hgb Hct MCV MCH MCHC RDW Lymph % (Auto) [place] % (Auto) Lymph # (Auto) [place] # (Auto) Baso # (Auto) Seg Neutrophils % Seg Neuts % (Manual) Lymphocytes % (Manual) Nucleated RBC % Seg Neutrophils # Seg Neutrophils # Man Lymphocytes # (Manual) Monocytes # (Manual) Eosinophils # (Manual) PT INR APTT D-Dimer Heparin Anti-Xa Level ABG pH POC ABG pCO2 POC ABG pO2 57.3 L ABG pO2 ABG HCO3 ABG O2 Saturation ABG Base Excess ABG Hemoglobin ABG Oxyhemoglobin 86.3 L ABG Sodium 129.9 L ABG Potassium ABG Chloride ABG Glucose 146 H Oxyhemoglobin Carboxyhemoglobin Sodium Potassium Chloride Carbon Dioxide BUN Creatinine Glucose 143 H POC Glucose Lactic Acid Calcium Magnesium Ferritin 48688.0 H Total Bilirubin Direct Bilirubin AST ALT Alkaline Phosphatase Lactate Dehydrogenase 1953 H C-Reactive Protein 33.50 H Total Protein Albumin Triglycerides Lipase Arterial Blood Glucose 146 H Arterial Blood Ionized Calcium 3.9 L Urine WBC (Auto) Coronavirus (PCR) SARS-CoV-2 IgG Ab Crossmatch 05/10/20 05/10/20 05/10/20 10:32 10:32 18:50 WBC 15.4 H RBC Hgb Hct MCV 97 H MCH 33 H MCHC RDW 13.1 L Lymph % (Auto) [place] % (Auto) Lymph # (Auto) [place] # (Auto) Baso # (Auto) Seg Neutrophils % Seg Neuts % (Manual) 89.0 H Lymphocytes % (Manual) 8.0 L Nucleated RBC % Seg Neutrophils # Seg Neutrophils # Man 13.7 H Lymphocytes # (Manual) Monocytes # (Manual) Eosinophils # (Manual) PT INR APTT D-Dimer Heparin Anti-Xa Level ABG pH POC ABG pCO2 POC ABG pO2 ABG pO2 ABG HCO3 ABG O2 Saturation ABG Base Excess ABG Hemoglobin ABG Oxyhemoglobin ABG Sodium ABG Potassium ABG Chloride ABG Glucose Oxyhemoglobin Carboxyhemoglobin Sodium 136 L Potassium Chloride 97.4 L Carbon Dioxide BUN 37 H Creatinine 1.7 H Glucose 209 H POC Glucose Lactic Acid Calcium Magnesium Ferritin > 2000.0 H Total Bilirubin Direct Bilirubin AST ALT Alkaline Phosphatase Lactate Dehydrogenase C-Reactive Protein Total Protein Albumin Triglycerides Lipase Arterial Blood Glucose Arterial Blood Ionized Calcium Urine WBC (Auto) Coronavirus (PCR) SARS-CoV-2 IgG Ab Crossmatch 05/10/20 05/10/20 05/10/20 18:50 19:00 Unknown WBC RBC Hgb Hct MCV MCH MCHC RDW Lymph % (Auto) [place] % (Auto) Lymph # (Auto) [place] # (Auto) Baso # (Auto) Seg Neutrophils % Seg Neuts % (Manual) Lymphocytes % (Manual) Nucleated RBC % Seg Neutrophils # Seg Neutrophils # Man Lymphocytes # (Manual) Monocytes # (Manual) Eosinophils # (Manual) PT INR APTT D-Dimer > 90327 H Heparin Anti-Xa Level ABG pH POC ABG pCO2 POC ABG pO2 ABG pO2 ABG HCO3 ABG O2 Saturation ABG Base Excess ABG Hemoglobin ABG Oxyhemoglobin ABG Sodium ABG Potassium ABG Chloride ABG Glucose Oxyhemoglobin Carboxyhemoglobin Sodium Potassium Chloride Carbon Dioxide BUN Creatinine Glucose POC Glucose Lactic Acid Calcium Magnesium Ferritin Total Bilirubin Direct Bilirubin AST ALT Alkaline Phosphatase Lactate Dehydrogenase 1879 H C-Reactive Protein 24.80 H Total Protein Albumin Triglycerides Lipase Arterial Blood Glucose Arterial Blood Ionized Calcium Urine WBC (Auto) 11.0 H Coronavirus (PCR) SARS-CoV-2 IgG Ab Crossmatch 05/10/20 05/11/20 05/11/20 Unknown 07:30 07:30 WBC RBC Hgb Hct MCV MCH MCHC RDW Lymph % (Auto) [place] % (Auto) Lymph # (Auto) [place] # (Auto) Baso # (Auto) Seg Neutrophils % Seg Neuts % (Manual) Lymphocytes % (Manual) Nucleated RBC % Seg Neutrophils # Seg Neutrophils # Man Lymphocytes # (Manual) Monocytes # (Manual) Eosinophils # (Manual) PT INR APTT D-Dimer > 2000 H Heparin Anti-Xa Level ABG pH POC ABG pCO2 POC ABG pO2 ABG pO2 ABG HCO3 ABG O2 Saturation ABG Base Excess ABG Hemoglobin ABG Oxyhemoglobin ABG Sodium ABG Potassium ABG Chloride ABG Glucose Oxyhemoglobin Carboxyhemoglobin Sodium Potassium Chloride 96.3 L Carbon Dioxide BUN 36 H Creatinine Glucose 161 H POC Glucose Lactic Acid Calcium 8.3 L Magnesium Ferritin Total Bilirubin 1.50 H Direct Bilirubin 0.6 H AST 178 H ALT 111 H Alkaline Phosphatase Lactate Dehydrogenase C-Reactive Protein Total Protein Albumin 3.0 L Triglycerides Lipase Arterial Blood Glucose Arterial Blood Ionized Calcium Urine WBC (Auto) Coronavirus (PCR) Positive A SARS-CoV-2 IgG Ab Crossmatch 05/11/20 05/11/20 05/11/20 07:30 07:30 07:30 WBC RBC Hgb Hct MCV MCH MCHC RDW Lymph % (Auto) [place] % (Auto) Lymph # (Auto) [place] # (Auto) Baso # (Auto) Seg Neutrophils % Seg Neuts % (Manual) Lymphocytes % (Manual) Nucleated RBC % Seg Neutrophils # Seg Neutrophils # Man Lymphocytes # (Manual) Monocytes # (Manual) Eosinophils # (Manual) PT INR APTT D-Dimer Heparin Anti-Xa Level ABG pH POC ABG pCO2 POC ABG pO2 ABG pO2 ABG HCO3 ABG O2 Saturation ABG Base Excess ABG Hemoglobin ABG Oxyhemoglobin ABG Sodium ABG Potassium ABG Chloride ABG Glucose Oxyhemoglobin Carboxyhemoglobin Sodium Potassium Chloride Carbon Dioxide BUN Creatinine Glucose POC Glucose Lactic Acid Calcium Magnesium Ferritin 74939.0 H Total Bilirubin Direct Bilirubin AST ALT Alkaline Phosphatase Lactate Dehydrogenase 1523 H C-Reactive Protein 12.90 H Total Protein Albumin Triglycerides Lipase Arterial Blood Glucose Arterial Blood Ionized Calcium Urine WBC (Auto) Coronavirus (PCR) SARS-CoV-2 IgG Ab Reactive A Crossmatch 05/13/20 05/13/20 05/15/20 05:20 05:20 08:15 WBC RBC Hgb Hct MCV MCH MCHC RDW Lymph % (Auto) [place] % (Auto) Lymph # (Auto) [place] # (Auto) Baso # (Auto) Seg Neutrophils % Seg Neuts % (Manual) Lymphocytes % (Manual) Nucleated RBC % Seg Neutrophils # Seg Neutrophils # Man Lymphocytes # (Manual) Monocytes # (Manual) Eosinophils # (Manual) PT INR APTT D-Dimer > 03859 H 5318.28 H Heparin Anti-Xa Level ABG pH POC ABG pCO2 POC ABG pO2 ABG pO2 ABG HCO3 ABG O2 Saturation ABG Base Excess ABG Hemoglobin ABG Oxyhemoglobin ABG Sodium ABG Potassium ABG Chloride ABG Glucose Oxyhemoglobin Carboxyhemoglobin Sodium Potassium Chloride Carbon Dioxide 32 H BUN 30 H Creatinine Glucose 156 H POC Glucose Lactic Acid Calcium Magnesium 2.60 H Ferritin Total Bilirubin 1.40 H Direct Bilirubin AST 121 H ALT 119 H Alkaline Phosphatase Lactate Dehydrogenase 957 H C-Reactive Protein 4.00 H Total Protein Albumin 3.0 L Triglycerides Lipase Arterial Blood Glucose Arterial Blood Ionized Calcium Urine WBC (Auto) Coronavirus (PCR) SARS-CoV-2 IgG Ab Crossmatch 05/15/20 05/15/20 05/15/20 08:15 08:15 08:15 WBC 12.4 H RBC Hgb Hct MCV 98 H MCH 33 H MCHC RDW Lymph % (Auto) 9.7 L [place] % (Auto) Lymph # (Auto) [place] # (Auto) Baso # (Auto) Seg Neutrophils % 86.8 H Seg Neuts % (Manual) Lymphocytes % (Manual) Nucleated RBC % Seg Neutrophils # 10.8 H Seg Neutrophils # Man Lymphocytes # (Manual) Monocytes # (Manual) Eosinophils # (Manual) PT INR APTT D-Dimer Heparin Anti-Xa Level ABG pH POC ABG pCO2 POC ABG pO2 ABG pO2 ABG HCO3 ABG O2 Saturation ABG Base Excess ABG Hemoglobin ABG Oxyhemoglobin ABG Sodium ABG Potassium ABG Chloride ABG Glucose Oxyhemoglobin Carboxyhemoglobin Sodium Potassium Chloride 94.8 L Carbon Dioxide 32 H BUN 22 H Creatinine Glucose 115 H POC Glucose Lactic Acid Calcium 8.3 L Magnesium Ferritin 2494.0 H Total Bilirubin Direct Bilirubin AST 73 H ALT 121 H Alkaline Phosphatase Lactate Dehydrogenase 835 H C-Reactive Protein 3.40 H Total Protein 6.1 L Albumin 3.0 L Triglycerides Lipase Arterial Blood Glucose Arterial Blood Ionized Calcium Urine WBC (Auto) Coronavirus (PCR) SARS-CoV-2 IgG Ab Crossmatch 05/17/20 05/17/20 05/17/20 05:50 05:50 05:50 WBC RBC Hgb Hct MCV MCH MCHC RDW Lymph % (Auto) [place] % (Auto) Lymph # (Auto) [place] # (Auto) Baso # (Auto) Seg Neutrophils % Seg Neuts % (Manual) Lymphocytes % (Manual) Nucleated RBC % Seg Neutrophils # Seg Neutrophils # Man Lymphocytes # (Manual) Monocytes # (Manual) Eosinophils # (Manual) PT INR APTT D-Dimer 2911.42 H Heparin Anti-Xa Level ABG pH POC ABG pCO2 POC ABG pO2 ABG pO2 ABG HCO3 ABG O2 Saturation ABG Base Excess ABG Hemoglobin ABG Oxyhemoglobin ABG Sodium ABG Potassium ABG Chloride ABG Glucose Oxyhemoglobin Carboxyhemoglobin Sodium 136 L Potassium Chloride 96.0 L Carbon Dioxide 34 H BUN 22 H Creatinine Glucose 140 H POC Glucose Lactic Acid Calcium Magnesium Ferritin 2082.0 H Total Bilirubin Direct Bilirubin AST ALT 75 H Alkaline Phosphatase Lactate Dehydrogenase 601 H C-Reactive Protein 2.70 H Total Protein Albumin 2.9 L Triglycerides Lipase Arterial Blood Glucose Arterial Blood Ionized Calcium Urine WBC (Auto) Coronavirus (PCR) SARS-CoV-2 IgG Ab Crossmatch 05/17/20 05/18/20 05/20/20 05:50 12:22 08:16 WBC RBC Hgb Hct MCV 98 H MCH 33 H MCHC RDW Lymph % (Auto) 8.0 L [place] % (Auto) Lymph # (Auto) 0.8 L [place] # (Auto) Baso # (Auto) Seg Neutrophils % 89.3 H Seg Neuts % (Manual) Lymphocytes % (Manual) Nucleated RBC % Seg Neutrophils # 8.8 H Seg Neutrophils # Man Lymphocytes # (Manual) Monocytes # (Manual) Eosinophils # (Manual) PT INR APTT D-Dimer 1887.82 H Heparin Anti-Xa Level ABG pH POC ABG pCO2 POC ABG pO2 ABG pO2 ABG HCO3 ABG O2 Saturation ABG Base Excess ABG Hemoglobin ABG Oxyhemoglobin ABG Sodium ABG Potassium ABG Chloride ABG Glucose Oxyhemoglobin Carboxyhemoglobin Sodium Potassium Chloride Carbon Dioxide BUN Creatinine Glucose POC Glucose 178 H Lactic Acid Calcium Magnesium Ferritin Total Bilirubin Direct Bilirubin AST ALT Alkaline Phosphatase Lactate Dehydrogenase C-Reactive Protein Total Protein Albumin Triglycerides Lipase Arterial Blood Glucose Arterial Blood Ionized Calcium Urine WBC (Auto) Coronavirus (PCR) SARS-CoV-2 IgG Ab Crossmatch 05/20/20 05/20/20 05/21/20 08:16 08:16 21:10 WBC RBC Hgb Hct MCV MCH MCHC RDW Lymph % (Auto) [place] % (Auto) Lymph # (Auto) [place] # (Auto) Baso # (Auto) Seg Neutrophils % Seg Neuts % (Manual) Lymphocytes % (Manual) Nucleated RBC % Seg Neutrophils # Seg Neutrophils # Man Lymphocytes # (Manual) Monocytes # (Manual) Eosinophils # (Manual) PT INR APTT D-Dimer Heparin Anti-Xa Level ABG pH 7.483 H POC ABG pCO2 POC ABG pO2 ABG pO2 50.0 L ABG HCO3 27.0 H ABG O2 Saturation 86.2 L ABG Base Excess 3.7 H ABG Hemoglobin ABG Oxyhemoglobin ABG Sodium ABG Potassium ABG Chloride ABG Glucose Oxyhemoglobin 84.2 L Carboxyhemoglobin Sodium Potassium Chloride Carbon Dioxide BUN Creatinine Glucose POC Glucose Lactic Acid Calcium Magnesium Ferritin 1960.0 H Total Bilirubin Direct Bilirubin AST ALT Alkaline Phosphatase Lactate Dehydrogenase 705 H C-Reactive Protein 3.10 H Total Protein Albumin Triglycerides Lipase Arterial Blood Glucose Arterial Blood Ionized Calcium Urine WBC (Auto) Coronavirus (PCR) SARS-CoV-2 IgG Ab Crossmatch 05/22/20 05/22/20 05/22/20 04:01 07:53 07:53 WBC 19.2 H RBC Hgb Hct MCV 98 H MCH 34 H MCHC RDW Lymph % (Auto) [place] % (Auto) Lymph # (Auto) [place] # (Auto) Baso # (Auto) Seg Neutrophils % Seg Neuts % (Manual) 96.0 H Lymphocytes % (Manual) 1.0 L Nucleated RBC % Seg Neutrophils # Seg Neutrophils # Man 18.4 H Lymphocytes # (Manual) 0.2 L Monocytes # (Manual) Eosinophils # (Manual) PT INR APTT D-Dimer Heparin Anti-Xa Level ABG pH POC ABG pCO2 53.8 H POC ABG pO2 125.5 H ABG pO2 ABG HCO3 ABG O2 Saturation ABG Base Excess ABG Hemoglobin ABG Oxyhemoglobin ABG Sodium 131.8 L ABG Potassium 4.8 H ABG Chloride 94.0 L ABG Glucose 163 H Oxyhemoglobin Carboxyhemoglobin Sodium 131 L Potassium Chloride 93.4 L Carbon Dioxide BUN 40 H Creatinine Glucose 176 H POC Glucose Lactic Acid Calcium Magnesium 2.70 H Ferritin Total Bilirubin 1.80 H Direct Bilirubin AST 45 H ALT 116 H Alkaline Phosphatase 181 H Lactate Dehydrogenase C-Reactive Protein Total Protein Albumin 2.6 L Triglycerides Lipase Arterial Blood Glucose 163 H Arterial Blood Ionized Calcium 4.5 L Urine WBC (Auto) Coronavirus (PCR) SARS-CoV-2 IgG Ab Crossmatch 05/23/20 05/24/20 05/24/20 04:17 03:07 04:08 WBC RBC Hgb Hct MCV MCH MCHC RDW Lymph % (Auto) [place] % (Auto) Lymph # (Auto) [place] # (Auto) Baso # (Auto) Seg Neutrophils % Seg Neuts % (Manual) Lymphocytes % (Manual) Nucleated RBC % Seg Neutrophils # Seg Neutrophils # Man Lymphocytes # (Manual) Monocytes # (Manual) Eosinophils # (Manual) PT INR APTT D-Dimer Heparin Anti-Xa Level ABG pH 7.328 L POC ABG pCO2 POC ABG pO2 ABG pO2 72.8 L 73.4 L ABG HCO3 31.0 H 34.0 H ABG O2 Saturation 93.5 L ABG Base Excess 3.5 H 7.7 H ABG Hemoglobin 13.3 L 12.1 L ABG Oxyhemoglobin ABG Sodium ABG Potassium ABG Chloride ABG Glucose Oxyhemoglobin 91.5 L 94.3 L Carboxyhemoglobin Sodium Potassium Chloride Carbon Dioxide BUN Creatinine Glucose POC Glucose 155 H Lactic Acid Calcium Magnesium Ferritin Total Bilirubin Direct Bilirubin AST ALT Alkaline Phosphatase Lactate Dehydrogenase C-Reactive Protein Total Protein Albumin Triglycerides Lipase Arterial Blood Glucose Arterial Blood Ionized Calcium Urine WBC (Auto) Coronavirus (PCR) SARS-CoV-2 IgG Ab Crossmatch 05/24/20 05/24/20 05/24/20 09:33 12:21 17:52 WBC RBC Hgb Hct MCV MCH MCHC RDW Lymph % (Auto) [place] % (Auto) Lymph # (Auto) [place] # (Auto) Baso # (Auto) Seg Neutrophils % Seg Neuts % (Manual) Lymphocytes % (Manual) Nucleated RBC % Seg Neutrophils # Seg Neutrophils # Man Lymphocytes # (Manual) Monocytes # (Manual) Eosinophils # (Manual) PT INR APTT D-Dimer Heparin Anti-Xa Level ABG pH POC ABG pCO2 POC ABG pO2 ABG pO2 ABG HCO3 ABG O2 Saturation ABG Base Excess ABG Hemoglobin ABG Oxyhemoglobin ABG Sodium ABG Potassium ABG Chloride ABG Glucose Oxyhemoglobin Carboxyhemoglobin Sodium Potassium Chloride Carbon Dioxide 34 H D BUN 28 H Creatinine 0.7 L Glucose 168 H POC Glucose 173 H 164 H Lactic Acid Calcium Magnesium Ferritin Total Bilirubin Direct Bilirubin AST ALT Alkaline Phosphatase Lactate Dehydrogenase C-Reactive Protein Total Protein Albumin Triglycerides Lipase Arterial Blood Glucose Arterial Blood Ionized Calcium Urine WBC (Auto) Coronavirus (PCR) SARS-CoV-2 IgG Ab Crossmatch 05/24/20 05/25/20 05/25/20 23:47 04:29 05:46 WBC RBC Hgb Hct MCV MCH MCHC RDW Lymph % (Auto) [place] % (Auto) Lymph # (Auto) [place] # (Auto) Baso # (Auto) Seg Neutrophils % Seg Neuts % (Manual) Lymphocytes % (Manual) Nucleated RBC % Seg Neutrophils # Seg Neutrophils # Man Lymphocytes # (Manual) Monocytes # (Manual) Eosinophils # (Manual) PT INR APTT D-Dimer Heparin Anti-Xa Level ABG pH POC ABG pCO2 68.6 H POC ABG pO2 ABG pO2 ABG HCO3 ABG O2 Saturation ABG Base Excess ABG Hemoglobin ABG Oxyhemoglobin ABG Sodium ABG Potassium 4.7 H ABG Chloride ABG Glucose 226 H Oxyhemoglobin Carboxyhemoglobin Sodium Potassium Chloride Carbon Dioxide BUN Creatinine Glucose POC Glucose 171 H 201 H Lactic Acid Calcium Magnesium Ferritin Total Bilirubin Direct Bilirubin AST ALT Alkaline Phosphatase Lactate Dehydrogenase C-Reactive Protein Total Protein Albumin Triglycerides Lipase Arterial Blood Glucose 226 H Arterial Blood Ionized Calcium Urine WBC (Auto) Coronavirus (PCR) SARS-CoV-2 IgG Ab Crossmatch 05/25/20 05/25/20 05/25/20 08:37 08:37 12:38 WBC 12.0 H RBC 3.64 L Hgb Hct MCV 99 H MCH 33 H MCHC RDW Lymph % (Auto) [place] % (Auto) Lymph # (Auto) [place] # (Auto) Baso # (Auto) Seg Neutrophils % Seg Neuts % (Manual) Lymphocytes % (Manual) Nucleated RBC % Seg Neutrophils # Seg Neutrophils # Man Lymphocytes # (Manual) Monocytes # (Manual) Eosinophils # (Manual) PT INR APTT D-Dimer Heparin Anti-Xa Level ABG pH POC ABG pCO2 POC ABG pO2 ABG pO2 ABG HCO3 ABG O2 Saturation ABG Base Excess ABG Hemoglobin ABG Oxyhemoglobin ABG Sodium ABG Potassium ABG Chloride ABG Glucose Oxyhemoglobin Carboxyhemoglobin Sodium Potassium Chloride 97.3 L Carbon Dioxide 35 H BUN 25 H Creatinine 0.7 L Glucose 191 H POC Glucose 182 H Lactic Acid Calcium Magnesium Ferritin Total Bilirubin Direct Bilirubin AST ALT Alkaline Phosphatase Lactate Dehydrogenase C-Reactive Protein Total Protein Albumin Triglycerides Lipase Arterial Blood Glucose Arterial Blood Ionized Calcium Urine WBC (Auto) Coronavirus (PCR) SARS-CoV-2 IgG Ab Crossmatch 05/25/20 05/26/20 05/26/20 18:16 00:06 04:50 WBC RBC Hgb Hct MCV MCH MCHC RDW Lymph % (Auto) [place] % (Auto) Lymph # (Auto) [place] # (Auto) Baso # (Auto) Seg Neutrophils % Seg Neuts % (Manual) Lymphocytes % (Manual) Nucleated RBC % Seg Neutrophils # Seg Neutrophils # Man Lymphocytes # (Manual) Monocytes # (Manual) Eosinophils # (Manual) PT INR APTT D-Dimer Heparin Anti-Xa Level ABG pH POC ABG pCO2 POC ABG pO2 ABG pO2 221.5 H ABG HCO3 40.4 H ABG O2 Saturation 99.3 H ABG Base Excess 12.8 H ABG Hemoglobin 10.4 L ABG Oxyhemoglobin ABG Sodium ABG Potassium ABG Chloride ABG Glucose Oxyhemoglobin Carboxyhemoglobin Sodium Potassium Chloride Carbon Dioxide BUN Creatinine Glucose POC Glucose 176 H 152 H Lactic Acid Calcium Magnesium Ferritin Total Bilirubin Direct Bilirubin AST ALT Alkaline Phosphatase Lactate Dehydrogenase C-Reactive Protein Total Protein Albumin Triglycerides Lipase Arterial Blood Glucose Arterial Blood Ionized Calcium Urine WBC (Auto) Coronavirus (PCR) SARS-CoV-2 IgG Ab Crossmatch 05/26/20 05/26/20 05/26/20 06:11 07:51 07:51 WBC 13.4 H RBC 3.64 L Hgb Hct MCV 98 H MCH 33 H MCHC RDW Lymph % (Auto) [place] % (Auto) Lymph # (Auto) [place] # (Auto) Baso # (Auto) Seg Neutrophils % Seg Neuts % (Manual) Lymphocytes % (Manual) Nucleated RBC % Seg Neutrophils # Seg Neutrophils # Man Lymphocytes # (Manual) Monocytes # (Manual) Eosinophils # (Manual) PT INR APTT D-Dimer Heparin Anti-Xa Level ABG pH POC ABG pCO2 POC ABG pO2 ABG pO2 ABG HCO3 ABG O2 Saturation ABG Base Excess ABG Hemoglobin ABG Oxyhemoglobin ABG Sodium ABG Potassium ABG Chloride ABG Glucose Oxyhemoglobin Carboxyhemoglobin Sodium Potassium Chloride 96.6 L Carbon Dioxide 39 H BUN 29 H Creatinine 0.7 L Glucose 174 H POC Glucose 165 H Lactic Acid Calcium Magnesium Ferritin Total Bilirubin Direct Bilirubin AST ALT Alkaline Phosphatase Lactate Dehydrogenase C-Reactive Protein Total Protein Albumin Triglycerides Lipase Arterial Blood Glucose Arterial Blood Ionized Calcium Urine WBC (Auto) Coronavirus (PCR) SARS-CoV-2 IgG Ab Crossmatch 05/26/20 05/27/20 05/27/20 23:23 03:43 05:29 WBC RBC Hgb Hct MCV MCH MCHC RDW Lymph % (Auto) [place] % (Auto) Lymph # (Auto) [place] # (Auto) Baso # (Auto) Seg Neutrophils % Seg Neuts % (Manual) Lymphocytes % (Manual) Nucleated RBC % Seg Neutrophils # Seg Neutrophils # Man Lymphocytes # (Manual) Monocytes # (Manual) Eosinophils # (Manual) PT INR APTT D-Dimer Heparin Anti-Xa Level ABG pH 7.480 H POC ABG pCO2 52.4 H POC ABG pO2 61.4 L ABG pO2 ABG HCO3 ABG O2 Saturation ABG Base Excess ABG Hemoglobin ABG Oxyhemoglobin ABG Sodium 134.9 L ABG Potassium ABG Chloride 95.0 L ABG Glucose 221 H Oxyhemoglobin Carboxyhemoglobin Sodium Potassium Chloride Carbon Dioxide BUN Creatinine Glucose POC Glucose 169 H 227 H Lactic Acid Calcium Magnesium Ferritin Total Bilirubin Direct Bilirubin AST ALT Alkaline Phosphatase Lactate Dehydrogenase C-Reactive Protein Total Protein Albumin Triglycerides Lipase Arterial Blood Glucose 221 H Arterial Blood Ionized Calcium 4.5 L Urine WBC (Auto) Coronavirus (PCR) SARS-CoV-2 IgG Ab Crossmatch 05/27/20 05/27/20 05/27/20 07:19 12:18 13:50 WBC RBC Hgb Hct MCV MCH MCHC RDW Lymph % (Auto) [place] % (Auto) Lymph # (Auto) [place] # (Auto) Baso # (Auto) Seg Neutrophils % Seg Neuts % (Manual) Lymphocytes % (Manual) Nucleated RBC % Seg Neutrophils # Seg Neutrophils # Man Lymphocytes # (Manual) Monocytes # (Manual) Eosinophils # (Manual) PT INR APTT D-Dimer Heparin Anti-Xa Level ABG pH POC ABG pCO2 POC ABG pO2 ABG pO2 ABG HCO3 ABG O2 Saturation ABG Base Excess ABG Hemoglobin ABG Oxyhemoglobin ABG Sodium ABG Potassium ABG Chloride ABG Glucose Oxyhemoglobin Carboxyhemoglobin Sodium Potassium Chloride Carbon Dioxide BUN Creatinine Glucose POC Glucose 114 H 148 H Lactic Acid Calcium Magnesium Ferritin Total Bilirubin Direct Bilirubin AST ALT Alkaline Phosphatase Lactate Dehydrogenase C-Reactive Protein Total Protein Albumin Triglycerides 247 H Lipase Arterial Blood Glucose Arterial Blood Ionized Calcium Urine WBC (Auto) Coronavirus (PCR) SARS-CoV-2 IgG Ab Crossmatch 05/28/20 05/28/20 05/28/20 00:13 04:16 05:22 WBC RBC Hgb Hct MCV MCH MCHC RDW Lymph % (Auto) [place] % (Auto) Lymph # (Auto) [place] # (Auto) Baso # (Auto) Seg Neutrophils % Seg Neuts % (Manual) Lymphocytes % (Manual) Nucleated RBC % Seg Neutrophils # Seg Neutrophils # Man Lymphocytes # (Manual) Monocytes # (Manual) Eosinophils # (Manual) PT INR APTT D-Dimer Heparin Anti-Xa Level ABG pH POC ABG pCO2 64.4 H POC ABG pO2 60.5 L ABG pO2 ABG HCO3 ABG O2 Saturation ABG Base Excess ABG Hemoglobin ABG Oxyhemoglobin ABG Sodium ABG Potassium ABG Chloride 95.0 L ABG Glucose 209 H Oxyhemoglobin Carboxyhemoglobin Sodium Potassium Chloride Carbon Dioxide BUN Creatinine Glucose POC Glucose 155 H 186 H Lactic Acid Calcium Magnesium Ferritin Total Bilirubin Direct Bilirubin AST ALT Alkaline Phosphatase Lactate Dehydrogenase C-Reactive Protein Total Protein Albumin Triglycerides Lipase Arterial Blood Glucose 209 H Arterial Blood Ionized Calcium Urine WBC (Auto) Coronavirus (PCR) SARS-CoV-2 IgG Ab Crossmatch 05/28/20 05/28/20 05/29/20 12:45 17:39 00:37 WBC RBC Hgb Hct MCV MCH MCHC RDW Lymph % (Auto) [place] % (Auto) Lymph # (Auto) [place] # (Auto) Baso # (Auto) Seg Neutrophils % Seg Neuts % (Manual) Lymphocytes % (Manual) Nucleated RBC % Seg Neutrophils # Seg Neutrophils # Man Lymphocytes # (Manual) Monocytes # (Manual) Eosinophils # (Manual) PT INR APTT D-Dimer Heparin Anti-Xa Level ABG pH POC ABG pCO2 POC ABG pO2 ABG pO2 ABG HCO3 ABG O2 Saturation ABG Base Excess ABG Hemoglobin ABG Oxyhemoglobin ABG Sodium ABG Potassium ABG Chloride ABG Glucose Oxyhemoglobin Carboxyhemoglobin Sodium Potassium Chloride Carbon Dioxide BUN Creatinine Glucose POC Glucose 143 H 164 H 221 H Lactic Acid Calcium Magnesium Ferritin Total Bilirubin Direct Bilirubin AST ALT Alkaline Phosphatase Lactate Dehydrogenase C-Reactive Protein Total Protein Albumin Triglycerides Lipase Arterial Blood Glucose Arterial Blood Ionized Calcium Urine WBC (Auto) Coronavirus (PCR) SARS-CoV-2 IgG Ab Crossmatch 05/29/20 05/29/20 05/29/20 04:15 05:33 12:34 WBC RBC Hgb Hct MCV MCH MCHC RDW Lymph % (Auto) [place] % (Auto) Lymph # (Auto) [place] # (Auto) Baso # (Auto) Seg Neutrophils % Seg Neuts % (Manual) Lymphocytes % (Manual) Nucleated RBC % Seg Neutrophils # Seg Neutrophils # Man Lymphocytes # (Manual) Monocytes # (Manual) Eosinophils # (Manual) PT INR APTT D-Dimer Heparin Anti-Xa Level ABG pH 7.463 H POC ABG pCO2 56.3 H POC ABG pO2 81.2 L ABG pO2 ABG HCO3 ABG O2 Saturation ABG Base Excess ABG Hemoglobin ABG Oxyhemoglobin ABG Sodium ABG Potassium ABG Chloride 96.0 L ABG Glucose 194 H Oxyhemoglobin Carboxyhemoglobin Sodium Potassium Chloride Carbon Dioxide BUN Creatinine Glucose POC Glucose 133 H 221 H Lactic Acid Calcium Magnesium Ferritin Total Bilirubin Direct Bilirubin AST ALT Alkaline Phosphatase Lactate Dehydrogenase C-Reactive Protein Total Protein Albumin Triglycerides Lipase Arterial Blood Glucose 194 H Arterial Blood Ionized Calcium 4.5 L Urine WBC (Auto) Coronavirus (PCR) SARS-CoV-2 IgG Ab Crossmatch 05/29/20 05/30/20 05/30/20 18:07 00:12 05:38 WBC RBC Hgb Hct MCV MCH MCHC RDW Lymph % (Auto) [place] % (Auto) Lymph # (Auto) [place] # (Auto) Baso # (Auto) Seg Neutrophils % Seg Neuts % (Manual) Lymphocytes % (Manual) Nucleated RBC % Seg Neutrophils # Seg Neutrophils # Man Lymphocytes # (Manual) Monocytes # (Manual) Eosinophils # (Manual) PT INR APTT D-Dimer Heparin Anti-Xa Level ABG pH POC ABG pCO2 POC ABG pO2 ABG pO2 ABG HCO3 ABG O2 Saturation ABG Base Excess ABG Hemoglobin ABG Oxyhemoglobin ABG Sodium ABG Potassium ABG Chloride ABG Glucose Oxyhemoglobin Carboxyhemoglobin Sodium Potassium Chloride Carbon Dioxide BUN Creatinine Glucose POC Glucose 162 H 190 H 208 H Lactic Acid Calcium Magnesium Ferritin Total Bilirubin Direct Bilirubin AST ALT Alkaline Phosphatase Lactate Dehydrogenase C-Reactive Protein Total Protein Albumin Triglycerides Lipase Arterial Blood Glucose Arterial Blood Ionized Calcium Urine WBC (Auto) Coronavirus (PCR) SARS-CoV-2 IgG Ab Crossmatch 05/30/20 05/30/20 05/30/20 09:30 11:35 11:54 WBC 12.4 H RBC 3.48 L Hgb 11.3 L Hct 34.6 L MCV 99 H MCH 33 H MCHC RDW Lymph % (Auto) [place] % (Auto) Lymph # (Auto) [place] # (Auto) Baso # (Auto) Seg Neutrophils % Seg Neuts % (Manual) Lymphocytes % (Manual) Nucleated RBC % Seg Neutrophils # Seg Neutrophils # Man Lymphocytes # (Manual) Monocytes # (Manual) Eosinophils # (Manual) PT INR APTT D-Dimer Heparin Anti-Xa Level ABG pH 7.455 H POC ABG pCO2 57.5 H POC ABG pO2 81.5 L ABG pO2 ABG HCO3 ABG O2 Saturation ABG Base Excess ABG Hemoglobin ABG Oxyhemoglobin ABG Sodium ABG Potassium ABG Chloride 96.0 L ABG Glucose 204 H Oxyhemoglobin Carboxyhemoglobin Sodium Potassium Chloride Carbon Dioxide BUN Creatinine Glucose POC Glucose 183 H Lactic Acid Calcium Magnesium Ferritin Total Bilirubin Direct Bilirubin AST ALT Alkaline Phosphatase Lactate Dehydrogenase C-Reactive Protein Total Protein Albumin Triglycerides Lipase Arterial Blood Glucose 204 H Arterial Blood Ionized Calcium Urine WBC (Auto) Coronavirus (PCR) SARS-CoV-2 IgG Ab Crossmatch 05/30/20 05/31/20 05/31/20 18:01 00:10 03:22 WBC RBC Hgb Hct MCV MCH MCHC RDW Lymph % (Auto) [place] % (Auto) Lymph # (Auto) [place] # (Auto) Baso # (Auto) Seg Neutrophils % Seg Neuts % (Manual) Lymphocytes % (Manual) Nucleated RBC % Seg Neutrophils # Seg Neutrophils # Man Lymphocytes # (Manual) Monocytes # (Manual) Eosinophils # (Manual) PT INR APTT D-Dimer Heparin Anti-Xa Level ABG pH POC ABG pCO2 60.4 H POC ABG pO2 71.5 L ABG pO2 ABG HCO3 ABG O2 Saturation ABG Base Excess ABG Hemoglobin ABG Oxyhemoglobin ABG Sodium ABG Potassium ABG Chloride 96.0 L ABG Glucose 169 H Oxyhemoglobin Carboxyhemoglobin Sodium Potassium Chloride Carbon Dioxide BUN Creatinine Glucose POC Glucose 184 H 135 H Lactic Acid Calcium Magnesium Ferritin Total Bilirubin Direct Bilirubin AST ALT Alkaline Phosphatase Lactate Dehydrogenase C-Reactive Protein Total Protein Albumin Triglycerides Lipase Arterial Blood Glucose 169 H Arterial Blood Ionized Calcium 4.5 L Urine WBC (Auto) Coronavirus (PCR) SARS-CoV-2 IgG Ab Crossmatch 05/31/20 05/31/20 05/31/20 05:24 11:18 14:41 WBC RBC Hgb Hct MCV MCH MCHC RDW Lymph % (Auto) [place] % (Auto) Lymph # (Auto) [place] # (Auto) Baso # (Auto) Seg Neutrophils % Seg Neuts % (Manual) Lymphocytes % (Manual) Nucleated RBC % Seg Neutrophils # Seg Neutrophils # Man Lymphocytes # (Manual) Monocytes # (Manual) Eosinophils # (Manual) PT INR APTT D-Dimer Heparin Anti-Xa Level ABG pH POC ABG pCO2 POC ABG pO2 ABG pO2 ABG HCO3 ABG O2 Saturation ABG Base Excess ABG Hemoglobin ABG Oxyhemoglobin ABG Sodium ABG Potassium ABG Chloride ABG Glucose Oxyhemoglobin Carboxyhemoglobin Sodium Potassium Chloride 96.8 L Carbon Dioxide 37 H BUN 31 H Creatinine 0.6 L Glucose 213 H POC Glucose 164 H 208 H Lactic Acid Calcium Magnesium Ferritin Total Bilirubin Direct Bilirubin AST ALT Alkaline Phosphatase Lactate Dehydrogenase C-Reactive Protein Total Protein Albumin Triglycerides Lipase Arterial Blood Glucose Arterial Blood Ionized Calcium Urine WBC (Auto) Coronavirus (PCR) SARS-CoV-2 IgG Ab Crossmatch 05/31/20 05/31/20 06/01/20 17:37 23:47 03:48 WBC RBC Hgb Hct MCV MCH MCHC RDW Lymph % (Auto) [place] % (Auto) Lymph # (Auto) [place] # (Auto) Baso # (Auto) Seg Neutrophils % Seg Neuts % (Manual) Lymphocytes % (Manual) Nucleated RBC % Seg Neutrophils # Seg Neutrophils # Man Lymphocytes # (Manual) Monocytes # (Manual) Eosinophils # (Manual) PT INR APTT D-Dimer Heparin Anti-Xa Level ABG pH POC ABG pCO2 59.7 H POC ABG pO2 73.9 L ABG pO2 ABG HCO3 ABG O2 Saturation ABG Base Excess ABG Hemoglobin ABG Oxyhemoglobin ABG Sodium ABG Potassium ABG Chloride 95.0 L ABG Glucose 256 H Oxyhemoglobin Carboxyhemoglobin Sodium Potassium Chloride Carbon Dioxide BUN Creatinine Glucose POC Glucose 168 H 178 H Lactic Acid Calcium Magnesium Ferritin Total Bilirubin Direct Bilirubin AST ALT Alkaline Phosphatase Lactate Dehydrogenase C-Reactive Protein Total Protein Albumin Triglycerides Lipase Arterial Blood Glucose 256 H Arterial Blood Ionized Calcium Urine WBC (Auto) Coronavirus (PCR) SARS-CoV-2 IgG Ab Crossmatch 06/01/20 06/01/20 06/01/20 05:01 07:47 07:47 WBC 14.4 H RBC 3.46 L Hgb 11.1 L Hct 34.3 L MCV 99 H MCH MCHC RDW Lymph % (Auto) [place] % (Auto) Lymph # (Auto) [place] # (Auto) Baso # (Auto) Seg Neutrophils % Seg Neuts % (Manual) 86.0 H Lymphocytes % (Manual) 9.0 L Nucleated RBC % Seg Neutrophils # Seg Neutrophils # Man 12.4 H Lymphocytes # (Manual) Monocytes # (Manual) Eosinophils # (Manual) PT INR APTT D-Dimer Heparin Anti-Xa Level ABG pH POC ABG pCO2 POC ABG pO2 ABG pO2 ABG HCO3 ABG O2 Saturation ABG Base Excess ABG Hemoglobin ABG Oxyhemoglobin ABG Sodium ABG Potassium ABG Chloride ABG Glucose Oxyhemoglobin Carboxyhemoglobin Sodium Potassium Chloride Carbon Dioxide BUN Creatinine Glucose POC Glucose 197 H Lactic Acid Calcium Magnesium Ferritin Total Bilirubin Direct Bilirubin AST ALT Alkaline Phosphatase Lactate Dehydrogenase C-Reactive Protein Total Protein Albumin Triglycerides 244 H Lipase Arterial Blood Glucose Arterial Blood Ionized Calcium Urine WBC (Auto) Coronavirus (PCR) SARS-CoV-2 IgG Ab Crossmatch 06/01/20 06/01/20 06/01/20 07:47 11:46 18:15 WBC RBC Hgb Hct MCV MCH MCHC RDW Lymph % (Auto) [place] % (Auto) Lymph # (Auto) [place] # (Auto) Baso # (Auto) Seg Neutrophils % Seg Neuts % (Manual) Lymphocytes % (Manual) Nucleated RBC % Seg Neutrophils # Seg Neutrophils # Man Lymphocytes # (Manual) Monocytes # (Manual) Eosinophils # (Manual) PT INR APTT D-Dimer Heparin Anti-Xa Level ABG pH POC ABG pCO2 POC ABG pO2 ABG pO2 ABG HCO3 ABG O2 Saturation ABG Base Excess ABG Hemoglobin ABG Oxyhemoglobin ABG Sodium ABG Potassium ABG Chloride ABG Glucose Oxyhemoglobin Carboxyhemoglobin Sodium Potassium Chloride 95.4 L Carbon Dioxide 35 H BUN 30 H Creatinine 0.5 L Glucose 214 H POC Glucose 181 H 221 H Lactic Acid Calcium Magnesium Ferritin Total Bilirubin Direct Bilirubin AST 54 H ALT 235 H Alkaline Phosphatase Lactate Dehydrogenase C-Reactive Protein Total Protein Albumin 2.9 L Triglycerides Lipase Arterial Blood Glucose Arterial Blood Ionized Calcium Urine WBC (Auto) Coronavirus (PCR) SARS-CoV-2 IgG Ab Crossmatch 06/01/20 06/02/20 06/02/20 23:12 04:00 05:31 WBC RBC Hgb Hct MCV MCH MCHC RDW Lymph % (Auto) [place] % (Auto) Lymph # (Auto) [place] # (Auto) Baso # (Auto) Seg Neutrophils % Seg Neuts % (Manual) Lymphocytes % (Manual) Nucleated RBC % Seg Neutrophils # Seg Neutrophils # Man Lymphocytes # (Manual) Monocytes # (Manual) Eosinophils # (Manual) PT INR APTT D-Dimer Heparin Anti-Xa Level ABG pH 7.465 H POC ABG pCO2 POC ABG pO2 ABG pO2 203.4 H ABG HCO3 41.2 H ABG O2 Saturation 99.3 H ABG Base Excess 15.1 H ABG Hemoglobin 11.5 L ABG Oxyhemoglobin ABG Sodium ABG Potassium ABG Chloride ABG Glucose Oxyhemoglobin Carboxyhemoglobin Sodium Potassium Chloride Carbon Dioxide BUN Creatinine Glucose POC Glucose 197 H 184 H Lactic Acid Calcium Magnesium Ferritin Total Bilirubin Direct Bilirubin AST ALT Alkaline Phosphatase Lactate Dehydrogenase C-Reactive Protein Total Protein Albumin Triglycerides Lipase Arterial Blood Glucose Arterial Blood Ionized Calcium Urine WBC (Auto) Coronavirus (PCR) SARS-CoV-2 IgG Ab Crossmatch 06/02/20 06/02/20 06/02/20 11:49 18:06 23:00 WBC RBC Hgb Hct MCV MCH MCHC RDW Lymph % (Auto) [place] % (Auto) Lymph # (Auto) [place] # (Auto) Baso # (Auto) Seg Neutrophils % Seg Neuts % (Manual) Lymphocytes % (Manual) Nucleated RBC % Seg Neutrophils # Seg Neutrophils # Man Lymphocytes # (Manual) Monocytes # (Manual) Eosinophils # (Manual) PT INR APTT D-Dimer Heparin Anti-Xa Level ABG pH POC ABG pCO2 POC ABG pO2 ABG pO2 ABG HCO3 ABG O2 Saturation ABG Base Excess ABG Hemoglobin ABG Oxyhemoglobin ABG Sodium ABG Potassium ABG Chloride ABG Glucose Oxyhemoglobin Carboxyhemoglobin Sodium Potassium Chloride Carbon Dioxide BUN Creatinine Glucose POC Glucose 195 H 177 H 228 H Lactic Acid Calcium Magnesium Ferritin Total Bilirubin Direct Bilirubin AST ALT Alkaline Phosphatase Lactate Dehydrogenase C-Reactive Protein Total Protein Albumin Triglycerides Lipase Arterial Blood Glucose Arterial Blood Ionized Calcium Urine WBC (Auto) Coronavirus (PCR) SARS-CoV-2 IgG Ab Crossmatch 06/03/20 06/03/20 06/03/20 03:58 05:19 12:21 WBC RBC Hgb Hct MCV MCH MCHC RDW Lymph % (Auto) [place] % (Auto) Lymph # (Auto) [place] # (Auto) Baso # (Auto) Seg Neutrophils % Seg Neuts % (Manual) Lymphocytes % (Manual) Nucleated RBC % Seg Neutrophils # Seg Neutrophils # Man Lymphocytes # (Manual) Monocytes # (Manual) Eosinophils # (Manual) PT INR APTT D-Dimer Heparin Anti-Xa Level ABG pH POC ABG pCO2 POC ABG pO2 ABG pO2 171.0 H ABG HCO3 42.8 H ABG O2 Saturation ABG Base Excess 15.6 H ABG Hemoglobin 12.3 L ABG Oxyhemoglobin ABG Sodium ABG Potassium ABG Chloride ABG Glucose Oxyhemoglobin Carboxyhemoglobin Sodium Potassium Chloride Carbon Dioxide BUN Creatinine Glucose POC Glucose 122 H 207 H Lactic Acid Calcium Magnesium Ferritin Total Bilirubin Direct Bilirubin AST ALT Alkaline Phosphatase Lactate Dehydrogenase C-Reactive Protein Total Protein Albumin Triglycerides Lipase Arterial Blood Glucose Arterial Blood Ionized Calcium Urine WBC (Auto) Coronavirus (PCR) SARS-CoV-2 IgG Ab Crossmatch 06/03/20 06/03/20 06/04/20 17:27 23:50 03:55 WBC RBC Hgb Hct MCV MCH MCHC RDW Lymph % (Auto) [place] % (Auto) Lymph # (Auto) [place] # (Auto) Baso # (Auto) Seg Neutrophils % Seg Neuts % (Manual) Lymphocytes % (Manual) Nucleated RBC % Seg Neutrophils # Seg Neutrophils # Man Lymphocytes # (Manual) Monocytes # (Manual) Eosinophils # (Manual) PT INR APTT D-Dimer Heparin Anti-Xa Level ABG pH POC ABG pCO2 POC ABG pO2 ABG pO2 117.2 H ABG HCO3 42.4 H ABG O2 Saturation ABG Base Excess 15.3 H ABG Hemoglobin 10.5 L ABG Oxyhemoglobin ABG Sodium ABG Potassium ABG Chloride ABG Glucose Oxyhemoglobin Carboxyhemoglobin Sodium Potassium Chloride Carbon Dioxide BUN Creatinine Glucose POC Glucose 157 H 214 H Lactic Acid Calcium Magnesium Ferritin Total Bilirubin Direct Bilirubin AST ALT Alkaline Phosphatase Lactate Dehydrogenase C-Reactive Protein Total Protein Albumin Triglycerides Lipase Arterial Blood Glucose Arterial Blood Ionized Calcium Urine WBC (Auto) Coronavirus (PCR) SARS-CoV-2 IgG Ab Crossmatch 06/04/20 06/04/20 06/04/20 05:49 11:41 17:30 WBC RBC Hgb Hct MCV MCH MCHC RDW Lymph % (Auto) [place] % (Auto) Lymph # (Auto) [place] # (Auto) Baso # (Auto) Seg Neutrophils % Seg Neuts % (Manual) Lymphocytes % (Manual) Nucleated RBC % Seg Neutrophils # Seg Neutrophils # Man Lymphocytes # (Manual) Monocytes # (Manual) Eosinophils # (Manual) PT INR APTT D-Dimer Heparin Anti-Xa Level ABG pH POC ABG pCO2 POC ABG pO2 ABG pO2 ABG HCO3 ABG O2 Saturation ABG Base Excess ABG Hemoglobin ABG Oxyhemoglobin ABG Sodium ABG Potassium ABG Chloride ABG Glucose Oxyhemoglobin Carboxyhemoglobin Sodium Potassium Chloride Carbon Dioxide BUN Creatinine Glucose POC Glucose 149 H 233 H 156 H Lactic Acid Calcium Magnesium Ferritin Total Bilirubin Direct Bilirubin AST ALT Alkaline Phosphatase Lactate Dehydrogenase C-Reactive Protein Total Protein Albumin Triglycerides Lipase Arterial Blood Glucose Arterial Blood Ionized Calcium Urine WBC (Auto) Coronavirus (PCR) SARS-CoV-2 IgG Ab Crossmatch 06/04/20 06/04/20 06/04/20 19:01 20:53 23:41 WBC RBC 3.18 L Hgb 10.8 L Hct 31.8 L MCV 100 H MCH 34 H MCHC RDW Lymph % (Auto) [place] % (Auto) Lymph # (Auto) [place] # (Auto) Baso # (Auto) Seg Neutrophils % Seg Neuts % (Manual) 86.0 H Lymphocytes % (Manual) 10.0 L Nucleated RBC % 1.0 H Seg Neutrophils # Seg Neutrophils # Man 8.5 H Lymphocytes # (Manual) 1.0 L Monocytes # (Manual) Eosinophils # (Manual) PT INR APTT D-Dimer Heparin Anti-Xa Level ABG pH POC ABG pCO2 POC ABG pO2 ABG pO2 ABG HCO3 ABG O2 Saturation ABG Base Excess ABG Hemoglobin ABG Oxyhemoglobin ABG Sodium ABG Potassium ABG Chloride ABG Glucose Oxyhemoglobin Carboxyhemoglobin Sodium Potassium 3.4 L D Chloride 96.5 L Carbon Dioxide 41 H* BUN 27 H Creatinine 0.5 L Glucose 173 H POC Glucose 217 H Lactic Acid Calcium Magnesium Ferritin Total Bilirubin Direct Bilirubin AST ALT Alkaline Phosphatase Lactate Dehydrogenase C-Reactive Protein Total Protein Albumin Triglycerides Lipase Arterial Blood Glucose Arterial Blood Ionized Calcium Urine WBC (Auto) Coronavirus (PCR) SARS-CoV-2 IgG Ab Crossmatch 06/05/20 06/05/20 06/05/20 06:05 11:54 12:35 WBC RBC Hgb Hct MCV MCH MCHC RDW Lymph % (Auto) [place] % (Auto) Lymph # (Auto) [place] # (Auto) Baso # (Auto) Seg Neutrophils % Seg Neuts % (Manual) Lymphocytes % (Manual) Nucleated RBC % Seg Neutrophils # Seg Neutrophils # Man Lymphocytes # (Manual) Monocytes # (Manual) Eosinophils # (Manual) PT INR APTT D-Dimer Heparin Anti-Xa Level ABG pH POC ABG pCO2 POC ABG pO2 ABG pO2 127.9 H ABG HCO3 41.1 H ABG O2 Saturation ABG Base Excess 13.0 H ABG Hemoglobin 13.4 L ABG Oxyhemoglobin ABG Sodium ABG Potassium ABG Chloride ABG Glucose Oxyhemoglobin Carboxyhemoglobin Sodium Potassium Chloride Carbon Dioxide BUN Creatinine Glucose POC Glucose 137 H 211 H Lactic Acid Calcium Magnesium Ferritin Total Bilirubin Direct Bilirubin AST ALT Alkaline Phosphatase Lactate Dehydrogenase C-Reactive Protein Total Protein Albumin Triglycerides Lipase Arterial Blood Glucose Arterial Blood Ionized Calcium Urine WBC (Auto) Coronavirus (PCR) SARS-CoV-2 IgG Ab Crossmatch 06/05/20 06/05/20 06/06/20 17:03 23:49 04:42 WBC RBC Hgb Hct MCV MCH MCHC RDW Lymph % (Auto) [place] % (Auto) Lymph # (Auto) [place] # (Auto) Baso # (Auto) Seg Neutrophils % Seg Neuts % (Manual) Lymphocytes % (Manual) Nucleated RBC % Seg Neutrophils # Seg Neutrophils # Man Lymphocytes # (Manual) Monocytes # (Manual) Eosinophils # (Manual) PT INR APTT D-Dimer Heparin Anti-Xa Level ABG pH POC ABG pCO2 56.1 H POC ABG pO2 52.5 L ABG pO2 ABG HCO3 ABG O2 Saturation ABG Base Excess ABG Hemoglobin 11.7 L ABG Oxyhemoglobin ABG Sodium ABG Potassium 3.3 L ABG Chloride 95.0 L ABG Glucose 156 H Oxyhemoglobin Carboxyhemoglobin Sodium Potassium Chloride Carbon Dioxide BUN Creatinine Glucose POC Glucose 159 H 194 H Lactic Acid Calcium Magnesium Ferritin Total Bilirubin Direct Bilirubin AST ALT Alkaline Phosphatase Lactate Dehydrogenase C-Reactive Protein Total Protein Albumin Triglycerides Lipase Arterial Blood Glucose 156 H Arterial Blood Ionized Calcium Urine WBC (Auto) Coronavirus (PCR) SARS-CoV-2 IgG Ab Crossmatch 06/06/20 06/06/20 06/06/20 05:57 12:06 17:38 WBC RBC Hgb Hct MCV MCH MCHC RDW Lymph % (Auto) [place] % (Auto) Lymph # (Auto) [place] # (Auto) Baso # (Auto) Seg Neutrophils % Seg Neuts % (Manual) Lymphocytes % (Manual) Nucleated RBC % Seg Neutrophils # Seg Neutrophils # Man Lymphocytes # (Manual) Monocytes # (Manual) Eosinophils # (Manual) PT INR APTT D-Dimer Heparin Anti-Xa Level ABG pH POC ABG pCO2 POC ABG pO2 ABG pO2 ABG HCO3 ABG O2 Saturation ABG Base Excess ABG Hemoglobin ABG Oxyhemoglobin ABG Sodium ABG Potassium ABG Chloride ABG Glucose Oxyhemoglobin Carboxyhemoglobin Sodium Potassium Chloride Carbon Dioxide BUN Creatinine Glucose POC Glucose 144 H 230 H 162 H Lactic Acid Calcium Magnesium Ferritin Total Bilirubin Direct Bilirubin AST ALT Alkaline Phosphatase Lactate Dehydrogenase C-Reactive Protein Total Protein Albumin Triglycerides Lipase Arterial Blood Glucose Arterial Blood Ionized Calcium Urine WBC (Auto) Coronavirus (PCR) SARS-CoV-2 IgG Ab Crossmatch 06/06/20 06/07/20 06/07/20 23:50 04:34 06:03 WBC RBC Hgb Hct MCV MCH MCHC RDW Lymph % (Auto) [place] % (Auto) Lymph # (Auto) [place] # (Auto) Baso # (Auto) Seg Neutrophils % Seg Neuts % (Manual) Lymphocytes % (Manual) Nucleated RBC % Seg Neutrophils # Seg Neutrophils # Man Lymphocytes # (Manual) Monocytes # (Manual) Eosinophils # (Manual) PT INR APTT D-Dimer Heparin Anti-Xa Level ABG pH 7.511 H POC ABG pCO2 53.5 H POC ABG pO2 114.5 H ABG pO2 ABG HCO3 ABG O2 Saturation ABG Base Excess ABG Hemoglobin 9.4 L ABG Oxyhemoglobin ABG Sodium 134.5 L ABG Potassium ABG Chloride 94.0 L ABG Glucose 186 H Oxyhemoglobin Carboxyhemoglobin Sodium Potassium Chloride Carbon Dioxide BUN Creatinine Glucose POC Glucose 181 H 155 H Lactic Acid Calcium Magnesium Ferritin Total Bilirubin Direct Bilirubin AST ALT Alkaline Phosphatase Lactate Dehydrogenase C-Reactive Protein Total Protein Albumin Triglycerides Lipase Arterial Blood Glucose 186 H Arterial Blood Ionized Calcium 4.5 L Urine WBC (Auto) Coronavirus (PCR) SARS-CoV-2 IgG Ab Crossmatch 06/07/20 06/07/20 06/07/20 13:41 14:58 14:58 WBC RBC 2.72 L Hgb 9.3 L Hct 27.2 L MCV 100 H MCH 34 H MCHC RDW Lymph % (Auto) [place] % (Auto) Lymph # (Auto) [place] # (Auto) Baso # (Auto) Seg Neutrophils % Seg Neuts % (Manual) Lymphocytes % (Manual) Nucleated RBC % Seg Neutrophils # Seg Neutrophils # Man Lymphocytes # (Manual) Monocytes # (Manual) Eosinophils # (Manual) PT INR APTT D-Dimer Heparin Anti-Xa Level ABG pH POC ABG pCO2 POC ABG pO2 ABG pO2 ABG HCO3 ABG O2 Saturation ABG Base Excess ABG Hemoglobin ABG Oxyhemoglobin ABG Sodium ABG Potassium ABG Chloride ABG Glucose Oxyhemoglobin Carboxyhemoglobin Sodium Potassium Chloride 93.5 L Carbon Dioxide 39 H BUN 22 H Creatinine 0.4 L Glucose 188 H POC Glucose 201 H Lactic Acid Calcium Magnesium Ferritin Total Bilirubin Direct Bilirubin AST 61 H ALT 273 H Alkaline Phosphatase Lactate Dehydrogenase C-Reactive Protein Total Protein 5.9 L Albumin 2.7 L Triglycerides Lipase Arterial Blood Glucose Arterial Blood Ionized Calcium Urine WBC (Auto) Coronavirus (PCR) SARS-CoV-2 IgG Ab Crossmatch 06/07/20 06/08/20 06/08/20 23:18 05:31 12:07 WBC RBC Hgb Hct MCV MCH MCHC RDW Lymph % (Auto) [place] % (Auto) Lymph # (Auto) [place] # (Auto) Baso # (Auto) Seg Neutrophils % Seg Neuts % (Manual) Lymphocytes % (Manual) Nucleated RBC % Seg Neutrophils # Seg Neutrophils # Man Lymphocytes # (Manual) Monocytes # (Manual) Eosinophils # (Manual) PT INR APTT D-Dimer Heparin Anti-Xa Level ABG pH POC ABG pCO2 POC ABG pO2 ABG pO2 ABG HCO3 ABG O2 Saturation ABG Base Excess ABG Hemoglobin ABG Oxyhemoglobin ABG Sodium ABG Potassium ABG Chloride ABG Glucose Oxyhemoglobin Carboxyhemoglobin Sodium Potassium Chloride Carbon Dioxide BUN Creatinine Glucose POC Glucose 214 H 129 H 179 H Lactic Acid Calcium Magnesium Ferritin Total Bilirubin Direct Bilirubin AST ALT Alkaline Phosphatase Lactate Dehydrogenase C-Reactive Protein Total Protein Albumin Triglycerides Lipase Arterial Blood Glucose Arterial Blood Ionized Calcium Urine WBC (Auto) Coronavirus (PCR) SARS-CoV-2 IgG Ab Crossmatch 06/08/20 06/08/20 06/09/20 18:18 23:35 05:42 WBC RBC Hgb Hct MCV MCH MCHC RDW Lymph % (Auto) [place] % (Auto) Lymph # (Auto) [place] # (Auto) Baso # (Auto) Seg Neutrophils % Seg Neuts % (Manual) Lymphocytes % (Manual) Nucleated RBC % Seg Neutrophils # Seg Neutrophils # Man Lymphocytes # (Manual) Monocytes # (Manual) Eosinophils # (Manual) PT INR APTT D-Dimer Heparin Anti-Xa Level ABG pH POC ABG pCO2 POC ABG pO2 ABG pO2 ABG HCO3 ABG O2 Saturation ABG Base Excess ABG Hemoglobin ABG Oxyhemoglobin ABG Sodium ABG Potassium ABG Chloride ABG Glucose Oxyhemoglobin Carboxyhemoglobin Sodium Potassium Chloride Carbon Dioxide BUN Creatinine Glucose POC Glucose 172 H 177 H 137 H Lactic Acid Calcium Magnesium Ferritin Total Bilirubin Direct Bilirubin AST ALT Alkaline Phosphatase Lactate Dehydrogenase C-Reactive Protein Total Protein Albumin Triglycerides Lipase Arterial Blood Glucose Arterial Blood Ionized Calcium Urine WBC (Auto) Coronavirus (PCR) SARS-CoV-2 IgG Ab Crossmatch 06/09/20 06/09/20 06/09/20 06:20 07:55 07:55 WBC 12.4 H RBC 3.26 L Hgb 11.1 L Hct 33.4 L D MCV 102 H MCH 34 H MCHC RDW Lymph % (Auto) [place] % (Auto) Lymph # (Auto) [place] # (Auto) Baso # (Auto) Seg Neutrophils % Seg Neuts % (Manual) Lymphocytes % (Manual) Nucleated RBC % Seg Neutrophils # Seg Neutrophils # Man Lymphocytes # (Manual) Monocytes # (Manual) Eosinophils # (Manual) PT INR APTT D-Dimer Heparin Anti-Xa Level ABG pH 7.466 H POC ABG pCO2 50.7 H POC ABG pO2 53.0 L ABG pO2 ABG HCO3 ABG O2 Saturation ABG Base Excess ABG Hemoglobin ABG Oxyhemoglobin ABG Sodium ABG Potassium 2.9 L ABG Chloride 93.0 L ABG Glucose 138 H Oxyhemoglobin Carboxyhemoglobin Sodium Potassium 3.0 L Chloride 92.3 L Carbon Dioxide 37 H BUN 21 H Creatinine 0.6 L Glucose 120 H POC Glucose Lactic Acid Calcium Magnesium Ferritin Total Bilirubin Direct Bilirubin AST ALT Alkaline Phosphatase Lactate Dehydrogenase C-Reactive Protein Total Protein Albumin Triglycerides Lipase Arterial Blood Glucose 138 H Arterial Blood Ionized Calcium 4.5 L Urine WBC (Auto) Coronavirus (PCR) SARS-CoV-2 IgG Ab Crossmatch 06/09/20 06/09/20 06/10/20 11:22 18:32 04:46 WBC RBC Hgb Hct MCV MCH MCHC RDW Lymph % (Auto) [place] % (Auto) Lymph # (Auto) [place] # (Auto) Baso # (Auto) Seg Neutrophils % Seg Neuts % (Manual) Lymphocytes % (Manual) Nucleated RBC % Seg Neutrophils # Seg Neutrophils # Man Lymphocytes # (Manual) Monocytes # (Manual) Eosinophils # (Manual) PT INR APTT D-Dimer Heparin Anti-Xa Level ABG pH 7.501 H POC ABG pCO2 POC ABG pO2 126.5 H ABG pO2 ABG HCO3 ABG O2 Saturation ABG Base Excess ABG Hemoglobin 10.3 L ABG Oxyhemoglobin ABG Sodium ABG Potassium ABG Chloride ABG Glucose 220 H Oxyhemoglobin Carboxyhemoglobin Sodium Potassium Chloride Carbon Dioxide BUN Creatinine Glucose POC Glucose 117 H 121 H Lactic Acid Calcium Magnesium Ferritin Total Bilirubin Direct Bilirubin AST ALT Alkaline Phosphatase Lactate Dehydrogenase C-Reactive Protein Total Protein Albumin Triglycerides Lipase Arterial Blood Glucose 220 H Arterial Blood Ionized Calcium Urine WBC (Auto) Coronavirus (PCR) SARS-CoV-2 IgG Ab Crossmatch 06/10/20 06/10/20 06/10/20 05:30 09:38 12:03 WBC RBC Hgb Hct MCV MCH MCHC RDW Lymph % (Auto) [place] % (Auto) Lymph # (Auto) [place] # (Auto) Baso # (Auto) Seg Neutrophils % Seg Neuts % (Manual) Lymphocytes % (Manual) Nucleated RBC % Seg Neutrophils # Seg Neutrophils # Man Lymphocytes # (Manual) Monocytes # (Manual) Eosinophils # (Manual) PT INR APTT D-Dimer Heparin Anti-Xa Level ABG pH POC ABG pCO2 POC ABG pO2 ABG pO2 ABG HCO3 ABG O2 Saturation ABG Base Excess ABG Hemoglobin ABG Oxyhemoglobin ABG Sodium ABG Potassium ABG Chloride ABG Glucose Oxyhemoglobin Carboxyhemoglobin Sodium Potassium Chloride Carbon Dioxide BUN Creatinine Glucose POC Glucose 181 H 204 H Lactic Acid Calcium Magnesium Ferritin Total Bilirubin Direct Bilirubin AST ALT Alkaline Phosphatase Lactate Dehydrogenase C-Reactive Protein Total Protein Albumin Triglycerides 738 H Lipase Arterial Blood Glucose Arterial Blood Ionized Calcium Urine WBC (Auto) Coronavirus (PCR) SARS-CoV-2 IgG Ab Crossmatch 06/10/20 06/11/20 06/11/20 17:17 00:04 04:38 WBC RBC Hgb Hct MCV MCH MCHC RDW Lymph % (Auto) [place] % (Auto) Lymph # (Auto) [place] # (Auto) Baso # (Auto) Seg Neutrophils % Seg Neuts % (Manual) Lymphocytes % (Manual) Nucleated RBC % Seg Neutrophils # Seg Neutrophils # Man Lymphocytes # (Manual) Monocytes # (Manual) Eosinophils # (Manual) PT INR APTT D-Dimer Heparin Anti-Xa Level ABG pH 7.479 H POC ABG pCO2 POC ABG pO2 76.7 L ABG pO2 ABG HCO3 ABG O2 Saturation ABG Base Excess ABG Hemoglobin 9.8 L ABG Oxyhemoglobin ABG Sodium 135.8 L ABG Potassium ABG Chloride ABG Glucose 238 H Oxyhemoglobin Carboxyhemoglobin Sodium Potassium Chloride Carbon Dioxide BUN Creatinine Glucose POC Glucose 156 H 178 H Lactic Acid Calcium Magnesium Ferritin Total Bilirubin Direct Bilirubin AST ALT Alkaline Phosphatase Lactate Dehydrogenase C-Reactive Protein Total Protein Albumin Triglycerides Lipase Arterial Blood Glucose 238 H Arterial Blood Ionized Calcium Urine WBC (Auto) Coronavirus (PCR) SARS-CoV-2 IgG Ab Crossmatch 06/11/20 06/11/20 06/11/20 05:21 06:52 11:50 WBC RBC Hgb Hct MCV MCH MCHC RDW Lymph % (Auto) [place] % (Auto) Lymph # (Auto) [place] # (Auto) Baso # (Auto) Seg Neutrophils % Seg Neuts % (Manual) Lymphocytes % (Manual) Nucleated RBC % Seg Neutrophils # Seg Neutrophils # Man Lymphocytes # (Manual) Monocytes # (Manual) Eosinophils # (Manual) PT INR APTT D-Dimer Heparin Anti-Xa Level ABG pH POC ABG pCO2 POC ABG pO2 ABG pO2 ABG HCO3 ABG O2 Saturation ABG Base Excess ABG Hemoglobin ABG Oxyhemoglobin ABG Sodium ABG Potassium ABG Chloride ABG Glucose Oxyhemoglobin Carboxyhemoglobin Sodium Potassium Chloride Carbon Dioxide BUN Creatinine Glucose POC Glucose 215 H 187 H Lactic Acid Calcium Magnesium Ferritin Total Bilirubin Direct Bilirubin AST ALT Alkaline Phosphatase Lactate Dehydrogenase C-Reactive Protein Total Protein Albumin Triglycerides 331 H Lipase Arterial Blood Glucose Arterial Blood Ionized Calcium Urine WBC (Auto) Coronavirus (PCR) SARS-CoV-2 IgG Ab Crossmatch 06/11/20 06/11/20 06/12/20 17:49 23:35 04:52 WBC RBC Hgb Hct MCV MCH MCHC RDW Lymph % (Auto) [place] % (Auto) Lymph # (Auto) [place] # (Auto) Baso # (Auto) Seg Neutrophils % Seg Neuts % (Manual) Lymphocytes % (Manual) Nucleated RBC % Seg Neutrophils # Seg Neutrophils # Man Lymphocytes # (Manual) Monocytes # (Manual) Eosinophils # (Manual) PT INR APTT D-Dimer Heparin Anti-Xa Level ABG pH 7.486 H POC ABG pCO2 POC ABG pO2 ABG pO2 ABG HCO3 ABG O2 Saturation ABG Base Excess ABG Hemoglobin 9.4 L ABG Oxyhemoglobin ABG Sodium ABG Potassium 3.2 L ABG Chloride ABG Glucose 209 H Oxyhemoglobin Carboxyhemoglobin Sodium Potassium Chloride Carbon Dioxide BUN Creatinine Glucose POC Glucose 211 H 200 H Lactic Acid Calcium Magnesium Ferritin Total Bilirubin Direct Bilirubin AST ALT Alkaline Phosphatase Lactate Dehydrogenase C-Reactive Protein Total Protein Albumin Triglycerides Lipase Arterial Blood Glucose 209 H Arterial Blood Ionized Calcium Urine WBC (Auto) Coronavirus (PCR) SARS-CoV-2 IgG Ab Crossmatch 06/12/20 06/12/20 06/12/20 05:13 11:47 18:33 WBC RBC Hgb Hct MCV MCH MCHC RDW Lymph % (Auto) [place] % (Auto) Lymph # (Auto) [place] # (Auto) Baso # (Auto) Seg Neutrophils % Seg Neuts % (Manual) Lymphocytes % (Manual) Nucleated RBC % Seg Neutrophils # Seg Neutrophils # Man Lymphocytes # (Manual) Monocytes # (Manual) Eosinophils # (Manual) PT INR APTT D-Dimer Heparin Anti-Xa Level ABG pH POC ABG pCO2 POC ABG pO2 ABG pO2 ABG HCO3 ABG O2 Saturation ABG Base Excess ABG Hemoglobin ABG Oxyhemoglobin ABG Sodium ABG Potassium ABG Chloride ABG Glucose Oxyhemoglobin Carboxyhemoglobin Sodium Potassium Chloride Carbon Dioxide BUN Creatinine Glucose POC Glucose 174 H 214 H 194 H Lactic Acid Calcium Magnesium Ferritin Total Bilirubin Direct Bilirubin AST ALT Alkaline Phosphatase Lactate Dehydrogenase C-Reactive Protein Total Protein Albumin Triglycerides Lipase Arterial Blood Glucose Arterial Blood Ionized Calcium Urine WBC (Auto) Coronavirus (PCR) SARS-CoV-2 IgG Ab Crossmatch 06/12/20 06/13/20 06/13/20 23:49 05:41 12:30 WBC RBC Hgb Hct MCV MCH MCHC RDW Lymph % (Auto) [place] % (Auto) Lymph # (Auto) [place] # (Auto) Baso # (Auto) Seg Neutrophils % Seg Neuts % (Manual) Lymphocytes % (Manual) Nucleated RBC % Seg Neutrophils # Seg Neutrophils # Man Lymphocytes # (Manual) Monocytes # (Manual) Eosinophils # (Manual) PT INR APTT D-Dimer Heparin Anti-Xa Level ABG pH POC ABG pCO2 POC ABG pO2 ABG pO2 ABG HCO3 ABG O2 Saturation ABG Base Excess ABG Hemoglobin ABG Oxyhemoglobin ABG Sodium ABG Potassium ABG Chloride ABG Glucose Oxyhemoglobin Carboxyhemoglobin Sodium Potassium Chloride Carbon Dioxide BUN Creatinine Glucose POC Glucose 160 H 150 H 181 H Lactic Acid Calcium Magnesium Ferritin Total Bilirubin Direct Bilirubin AST ALT Alkaline Phosphatase Lactate Dehydrogenase C-Reactive Protein Total Protein Albumin Triglycerides Lipase Arterial Blood Glucose Arterial Blood Ionized Calcium Urine WBC (Auto) Coronavirus (PCR) SARS-CoV-2 IgG Ab Crossmatch 06/13/20 06/13/20 06/13/20 14:14 17:48 23:27 WBC 12.8 H RBC 2.33 L Hgb 8.0 L Hct 23.3 L MCV 100 H MCH 34 H MCHC RDW 15.7 H Lymph % (Auto) [place] % (Auto) Lymph # (Auto) [place] # (Auto) Baso # (Auto) Seg Neutrophils % Seg Neuts % (Manual) 85.0 H Lymphocytes % (Manual) 10.0 L Nucleated RBC % Seg Neutrophils # Seg Neutrophils # Man 10.9 H Lymphocytes # (Manual) Monocytes # (Manual) Eosinophils # (Manual) PT INR APTT D-Dimer Heparin Anti-Xa Level ABG pH POC ABG pCO2 POC ABG pO2 ABG pO2 ABG HCO3 ABG O2 Saturation ABG Base Excess ABG Hemoglobin ABG Oxyhemoglobin ABG Sodium ABG Potassium ABG Chloride ABG Glucose Oxyhemoglobin Carboxyhemoglobin Sodium Potassium Chloride Carbon Dioxide BUN Creatinine Glucose POC Glucose 173 H 154 H Lactic Acid Calcium Magnesium Ferritin Total Bilirubin Direct Bilirubin AST ALT Alkaline Phosphatase Lactate Dehydrogenase C-Reactive Protein Total Protein Albumin Triglycerides Lipase Arterial Blood Glucose Arterial Blood Ionized Calcium Urine WBC (Auto) Coronavirus (PCR) SARS-CoV-2 IgG Ab Crossmatch 06/14/20 06/14/20 06/14/20 03:58 05:21 07:15 WBC 26.2 H RBC 2.97 L Hgb 9.7 L Hct 29.9 L D MCV 101 H MCH 33 H MCHC RDW 15.3 H Lymph % (Auto) [place] % (Auto) Lymph # (Auto) [place] # (Auto) Baso # (Auto) Seg Neutrophils % Seg Neuts % (Manual) 79.0 H Lymphocytes % (Manual) 5.0 L Nucleated RBC % 3.0 H Seg Neutrophils # Seg Neutrophils # Man 20.7 H Lymphocytes # (Manual) Monocytes # (Manual) 1.3 H Eosinophils # (Manual) PT INR APTT D-Dimer Heparin Anti-Xa Level ABG pH POC ABG pCO2 51.5 H POC ABG pO2 70.0 L ABG pO2 ABG HCO3 ABG O2 Saturation ABG Base Excess ABG Hemoglobin 10.1 L ABG Oxyhemoglobin ABG Sodium 131.5 L ABG Potassium 3.1 L ABG Chloride 93.0 L ABG Glucose 188 H Oxyhemoglobin Carboxyhemoglobin Sodium Potassium Chloride Carbon Dioxide BUN Creatinine Glucose POC Glucose 147 H Lactic Acid Calcium Magnesium Ferritin Total Bilirubin Direct Bilirubin AST ALT Alkaline Phosphatase Lactate Dehydrogenase C-Reactive Protein Total Protein Albumin Triglycerides Lipase Arterial Blood Glucose 188 H Arterial Blood Ionized Calcium Urine WBC (Auto) Coronavirus (PCR) SARS-CoV-2 IgG Ab Crossmatch 06/14/20 06/14/20 06/14/20 07:15 11:30 11:50 WBC RBC Hgb Hct MCV MCH MCHC RDW Lymph % (Auto) [place] % (Auto) Lymph # (Auto) [place] # (Auto) Baso # (Auto) Seg Neutrophils % Seg Neuts % (Manual) Lymphocytes % (Manual) Nucleated RBC % Seg Neutrophils # Seg Neutrophils # Man Lymphocytes # (Manual) Monocytes # (Manual) Eosinophils # (Manual) PT INR APTT D-Dimer Heparin Anti-Xa Level ABG pH POC ABG pCO2 POC ABG pO2 ABG pO2 ABG HCO3 ABG O2 Saturation ABG Base Excess ABG Hemoglobin ABG Oxyhemoglobin ABG Sodium ABG Potassium ABG Chloride ABG Glucose Oxyhemoglobin Carboxyhemoglobin Sodium 135 L Potassium 3.5 L Chloride 90.4 L Carbon Dioxide 38 H BUN Creatinine 0.5 L Glucose 190 H POC Glucose 176 H Lactic Acid Calcium Magnesium Ferritin 1496.0 H Total Bilirubin Direct Bilirubin AST ALT 81 H Alkaline Phosphatase Lactate Dehydrogenase C-Reactive Protein Total Protein Albumin 2.9 L Triglycerides Lipase Arterial Blood Glucose Arterial Blood Ionized Calcium Urine WBC (Auto) Coronavirus (PCR) SARS-CoV-2 IgG Ab Crossmatch 06/14/20 06/15/20 06/15/20 23:31 04:00 05:00 WBC RBC Hgb Hct MCV MCH MCHC RDW Lymph % (Auto) [place] % (Auto) Lymph # (Auto) [place] # (Auto) Baso # (Auto) Seg Neutrophils % Seg Neuts % (Manual) Lymphocytes % (Manual) Nucleated RBC % Seg Neutrophils # Seg Neutrophils # Man Lymphocytes # (Manual) Monocytes # (Manual) Eosinophils # (Manual) PT INR APTT D-Dimer Heparin Anti-Xa Level ABG pH POC ABG pCO2 POC ABG pO2 ABG pO2 ABG HCO3 ABG O2 Saturation ABG Base Excess ABG Hemoglobin ABG Oxyhemoglobin ABG Sodium ABG Potassium ABG Chloride ABG Glucose Oxyhemoglobin Carboxyhemoglobin Sodium 133 L Potassium Chloride 91.1 L Carbon Dioxide 34 H BUN Creatinine 0.4 L Glucose 159 H POC Glucose 200 H Lactic Acid Calcium Magnesium Ferritin Total Bilirubin 2.00 H Direct Bilirubin AST 47 H ALT 77 H Alkaline Phosphatase Lactate Dehydrogenase C-Reactive Protein Total Protein Albumin 2.6 L Triglycerides 152 H Lipase Arterial Blood Glucose Arterial Blood Ionized Calcium Urine WBC (Auto) Coronavirus (PCR) SARS-CoV-2 IgG Ab Crossmatch 06/15/20 06/15/20 06/15/20 05:35 06:27 11:38 WBC RBC Hgb Hct MCV MCH MCHC RDW Lymph % (Auto) [place] % (Auto) Lymph # (Auto) [place] # (Auto) Baso # (Auto) Seg Neutrophils % Seg Neuts % (Manual) Lymphocytes % (Manual) Nucleated RBC % Seg Neutrophils # Seg Neutrophils # Man Lymphocytes # (Manual) Monocytes # (Manual) Eosinophils # (Manual) PT INR APTT D-Dimer Heparin Anti-Xa Level ABG pH POC ABG pCO2 61.0 H POC ABG pO2 67.9 L ABG pO2 ABG HCO3 ABG O2 Saturation ABG Base Excess ABG Hemoglobin 10.4 L ABG Oxyhemoglobin ABG Sodium 132.7 L ABG Potassium 3.3 L ABG Chloride 92.0 L ABG Glucose 158 H Oxyhemoglobin Carboxyhemoglobin Sodium Potassium Chloride Carbon Dioxide BUN Creatinine Glucose POC Glucose 148 H 197 H Lactic Acid Calcium Magnesium Ferritin Total Bilirubin Direct Bilirubin AST ALT Alkaline Phosphatase Lactate Dehydrogenase C-Reactive Protein Total Protein Albumin Triglycerides Lipase Arterial Blood Glucose 158 H Arterial Blood Ionized Calcium Urine WBC (Auto) Coronavirus (PCR) SARS-CoV-2 IgG Ab Crossmatch 06/15/20 06/15/20 06/16/20 17:29 Unknown 00:01 WBC 20.7 H RBC 2.57 L Hgb 8.9 L Hct 25.8 L MCV 101 H MCH 35 H MCHC 35 H RDW 16.0 H Lymph % (Auto) [place] % (Auto) Lymph # (Auto) [place] # (Auto) Baso # (Auto) Seg Neutrophils % Seg Neuts % (Manual) 83.0 H Lymphocytes % (Manual) 8.0 L Nucleated RBC % Seg Neutrophils # Seg Neutrophils # Man 17.2 H Lymphocytes # (Manual) Monocytes # (Manual) 1.2 H Eosinophils # (Manual) PT INR APTT D-Dimer Heparin Anti-Xa Level ABG pH POC ABG pCO2 POC ABG pO2 ABG pO2 ABG HCO3 ABG O2 Saturation ABG Base Excess ABG Hemoglobin ABG Oxyhemoglobin ABG Sodium ABG Potassium ABG Chloride ABG Glucose Oxyhemoglobin Carboxyhemoglobin Sodium Potassium Chloride Carbon Dioxide BUN Creatinine Glucose POC Glucose 231 H 257 H Lactic Acid Calcium Magnesium Ferritin Total Bilirubin Direct Bilirubin AST ALT Alkaline Phosphatase Lactate Dehydrogenase C-Reactive Protein Total Protein Albumin Triglycerides Lipase Arterial Blood Glucose Arterial Blood Ionized Calcium Urine WBC (Auto) Coronavirus (PCR) SARS-CoV-2 IgG Ab Crossmatch 06/16/20 06/16/20 06/16/20 04:00 04:00 05:22 WBC 13.8 H RBC 2.03 L Hgb 7.6 L Hct 20.7 L MCV 102 H MCH 37 H MCHC 37 H RDW 16.2 H Lymph % (Auto) 4.4 L [place] % (Auto) Lymph # (Auto) 0.6 L [place] # (Auto) Baso # (Auto) Seg Neutrophils % Seg Neuts % (Manual) Lymphocytes % (Manual) Nucleated RBC % Seg Neutrophils # 12.7 H Seg Neutrophils # Man Lymphocytes # (Manual) Monocytes # (Manual) Eosinophils # (Manual) PT INR APTT D-Dimer Heparin Anti-Xa Level ABG pH POC ABG pCO2 POC ABG pO2 ABG pO2 ABG HCO3 ABG O2 Saturation ABG Base Excess ABG Hemoglobin ABG Oxyhemoglobin ABG Sodium ABG Potassium ABG Chloride ABG Glucose Oxyhemoglobin Carboxyhemoglobin Sodium 130 L Potassium Chloride 88.9 L Carbon Dioxide 36 H BUN Creatinine 0.3 L Glucose 276 H POC Glucose 250 H Lactic Acid Calcium Magnesium Ferritin Total Bilirubin Direct Bilirubin AST ALT Alkaline Phosphatase Lactate Dehydrogenase C-Reactive Protein Total Protein Albumin Triglycerides Lipase Arterial Blood Glucose Arterial Blood Ionized Calcium Urine WBC (Auto) Coronavirus (PCR) SARS-CoV-2 IgG Ab Crossmatch 06/16/20 06/16/20 06/17/20 12:44 18:18 00:39 WBC RBC Hgb Hct MCV MCH MCHC RDW Lymph % (Auto) [place] % (Auto) Lymph # (Auto) [place] # (Auto) Baso # (Auto) Seg Neutrophils % Seg Neuts % (Manual) Lymphocytes % (Manual) Nucleated RBC % Seg Neutrophils # Seg Neutrophils # Man Lymphocytes # (Manual) Monocytes # (Manual) Eosinophils # (Manual) PT INR APTT D-Dimer Heparin Anti-Xa Level ABG pH POC ABG pCO2 POC ABG pO2 ABG pO2 ABG HCO3 ABG O2 Saturation ABG Base Excess ABG Hemoglobin ABG Oxyhemoglobin ABG Sodium ABG Potassium ABG Chloride ABG Glucose Oxyhemoglobin Carboxyhemoglobin Sodium Potassium Chloride Carbon Dioxide BUN Creatinine Glucose POC Glucose 279 H 239 H 247 H Lactic Acid Calcium Magnesium Ferritin Total Bilirubin Direct Bilirubin AST ALT Alkaline Phosphatase Lactate Dehydrogenase C-Reactive Protein Total Protein Albumin Triglycerides Lipase Arterial Blood Glucose Arterial Blood Ionized Calcium Urine WBC (Auto) Coronavirus (PCR) SARS-CoV-2 IgG Ab Crossmatch 06/17/20 06/17/20 06/17/20 03:40 04:08 10:54 WBC RBC Hgb Hct MCV MCH MCHC RDW Lymph % (Auto) [place] % (Auto) Lymph # (Auto) [place] # (Auto) Baso # (Auto) Seg Neutrophils % Seg Neuts % (Manual) Lymphocytes % (Manual) Nucleated RBC % Seg Neutrophils # Seg Neutrophils # Man Lymphocytes # (Manual) Monocytes # (Manual) Eosinophils # (Manual) PT INR APTT D-Dimer Heparin Anti-Xa Level ABG pH POC ABG pCO2 65.7 H POC ABG pO2 ABG pO2 ABG HCO3 ABG O2 Saturation ABG Base Excess ABG Hemoglobin 11.9 L ABG Oxyhemoglobin ABG Sodium ABG Potassium ABG Chloride 93.0 L ABG Glucose 244 H Oxyhemoglobin Carboxyhemoglobin Sodium Potassium Chloride Carbon Dioxide BUN Creatinine Glucose POC Glucose 221 H 248 H Lactic Acid Calcium Magnesium Ferritin Total Bilirubin Direct Bilirubin AST ALT Alkaline Phosphatase Lactate Dehydrogenase C-Reactive Protein Total Protein Albumin Triglycerides Lipase Arterial Blood Glucose 244 H Arterial Blood Ionized Calcium Urine WBC (Auto) Coronavirus (PCR) SARS-CoV-2 IgG Ab Crossmatch 06/17/20 06/17/20 06/17/20 17:47 23:11 23:29 WBC RBC Hgb Hct MCV MCH MCHC RDW Lymph % (Auto) [place] % (Auto) Lymph # (Auto) [place] # (Auto) Baso # (Auto) Seg Neutrophils % Seg Neuts % (Manual) Lymphocytes % (Manual) Nucleated RBC % Seg Neutrophils # Seg Neutrophils # Man Lymphocytes # (Manual) Monocytes # (Manual) Eosinophils # (Manual) PT INR APTT D-Dimer Heparin Anti-Xa Level ABG pH POC ABG pCO2 85.2 H POC ABG pO2 48.4 L ABG pO2 ABG HCO3 ABG O2 Saturation ABG Base Excess ABG Hemoglobin 8.0 L ABG Oxyhemoglobin ABG Sodium ABG Potassium ABG Chloride 95.0 L ABG Glucose 292 H Oxyhemoglobin Carboxyhemoglobin Sodium Potassium Chloride Carbon Dioxide BUN Creatinine Glucose POC Glucose 245 H 252 H Lactic Acid Calcium Magnesium Ferritin Total Bilirubin Direct Bilirubin AST ALT Alkaline Phosphatase Lactate Dehydrogenase C-Reactive Protein Total Protein Albumin Triglycerides Lipase Arterial Blood Glucose 292 H Arterial Blood Ionized Calcium Urine WBC (Auto) Coronavirus (PCR) SARS-CoV-2 IgG Ab Crossmatch 06/18/20 06/18/20 06/18/20 03:14 05:34 11:47 WBC RBC Hgb Hct MCV MCH MCHC RDW Lymph % (Auto) [place] % (Auto) Lymph # (Auto) [place] # (Auto) Baso # (Auto) Seg Neutrophils % Seg Neuts % (Manual) Lymphocytes % (Manual) Nucleated RBC % Seg Neutrophils # Seg Neutrophils # Man Lymphocytes # (Manual) Monocytes # (Manual) Eosinophils # (Manual) PT INR APTT D-Dimer Heparin Anti-Xa Level ABG pH POC ABG pCO2 65.4 H POC ABG pO2 160.7 H ABG pO2 ABG HCO3 ABG O2 Saturation ABG Base Excess ABG Hemoglobin 7.8 L ABG Oxyhemoglobin ABG Sodium ABG Potassium ABG Chloride 95.0 L ABG Glucose 251 H Oxyhemoglobin Carboxyhemoglobin Sodium Potassium Chloride Carbon Dioxide BUN Creatinine Glucose POC Glucose 243 H 263 H Lactic Acid Calcium Magnesium Ferritin Total Bilirubin Direct Bilirubin AST ALT Alkaline Phosphatase Lactate Dehydrogenase C-Reactive Protein Total Protein Albumin Triglycerides Lipase Arterial Blood Glucose 251 H Arterial Blood Ionized Calcium Urine WBC (Auto) Coronavirus (PCR) SARS-CoV-2 IgG Ab Crossmatch 06/18/20 06/18/20 06/19/20 17:31 23:33 04:32 WBC RBC Hgb Hct MCV MCH MCHC RDW Lymph % (Auto) [place] % (Auto) Lymph # (Auto) [place] # (Auto) Baso # (Auto) Seg Neutrophils % Seg Neuts % (Manual) Lymphocytes % (Manual) Nucleated RBC % Seg Neutrophils # Seg Neutrophils # Man Lymphocytes # (Manual) Monocytes # (Manual) Eosinophils # (Manual) PT INR APTT D-Dimer Heparin Anti-Xa Level ABG pH POC ABG pCO2 83.1 H POC ABG pO2 65.8 L ABG pO2 ABG HCO3 ABG O2 Saturation ABG Base Excess ABG Hemoglobin 8.9 L ABG Oxyhemoglobin ABG Sodium ABG Potassium ABG Chloride 96.0 L ABG Glucose 297 H Oxyhemoglobin Carboxyhemoglobin Sodium Potassium Chloride Carbon Dioxide BUN Creatinine Glucose POC Glucose 286 H 238 H Lactic Acid Calcium Magnesium Ferritin Total Bilirubin Direct Bilirubin AST ALT Alkaline Phosphatase Lactate Dehydrogenase C-Reactive Protein Total Protein Albumin Triglycerides Lipase Arterial Blood Glucose 297 H Arterial Blood Ionized Calcium Urine WBC (Auto) Coronavirus (PCR) SARS-CoV-2 IgG Ab Crossmatch 06/19/20 06/19/20 06/19/20 05:55 11:20 17:12 WBC RBC Hgb Hct MCV MCH MCHC RDW Lymph % (Auto) [place] % (Auto) Lymph # (Auto) [place] # (Auto) Baso # (Auto) Seg Neutrophils % Seg Neuts % (Manual) Lymphocytes % (Manual) Nucleated RBC % Seg Neutrophils # Seg Neutrophils # Man Lymphocytes # (Manual) Monocytes # (Manual) Eosinophils # (Manual) PT INR APTT D-Dimer Heparin Anti-Xa Level ABG pH POC ABG pCO2 POC ABG pO2 ABG pO2 ABG HCO3 ABG O2 Saturation ABG Base Excess ABG Hemoglobin ABG Oxyhemoglobin ABG Sodium ABG Potassium ABG Chloride ABG Glucose Oxyhemoglobin Carboxyhemoglobin Sodium Potassium Chloride Carbon Dioxide BUN Creatinine Glucose POC Glucose 274 H 282 H 298 H Lactic Acid Calcium Magnesium Ferritin Total Bilirubin Direct Bilirubin AST ALT Alkaline Phosphatase Lactate Dehydrogenase C-Reactive Protein Total Protein Albumin Triglycerides Lipase Arterial Blood Glucose Arterial Blood Ionized Calcium Urine WBC (Auto) Coronavirus (PCR) SARS-CoV-2 IgG Ab Crossmatch 06/19/20 06/20/20 06/20/20 23:08 03:33 06:01 WBC RBC Hgb Hct MCV MCH MCHC RDW Lymph % (Auto) [place] % (Auto) Lymph # (Auto) [place] # (Auto) Baso # (Auto) Seg Neutrophils % Seg Neuts % (Manual) Lymphocytes % (Manual) Nucleated RBC % Seg Neutrophils # Seg Neutrophils # Man Lymphocytes # (Manual) Monocytes # (Manual) Eosinophils # (Manual) PT INR APTT D-Dimer Heparin Anti-Xa Level ABG pH POC ABG pCO2 POC ABG pO2 ABG pO2 69.9 L ABG HCO3 50.8 H ABG O2 Saturation ABG Base Excess 24.2 H ABG Hemoglobin 5.8 L ABG Oxyhemoglobin ABG Sodium ABG Potassium ABG Chloride ABG Glucose Oxyhemoglobin Carboxyhemoglobin Sodium Potassium Chloride Carbon Dioxide BUN Creatinine Glucose POC Glucose 293 H 182 H Lactic Acid Calcium Magnesium Ferritin Total Bilirubin Direct Bilirubin AST ALT Alkaline Phosphatase Lactate Dehydrogenase C-Reactive Protein Total Protein Albumin Triglycerides Lipase Arterial Blood Glucose Arterial Blood Ionized Calcium Urine WBC (Auto) Coronavirus (PCR) SARS-CoV-2 IgG Ab Crossmatch 06/20/20 06/20/20 06/20/20 11:47 17:46 23:37 WBC RBC Hgb Hct MCV MCH MCHC RDW Lymph % (Auto) [place] % (Auto) Lymph # (Auto) [place] # (Auto) Baso # (Auto) Seg Neutrophils % Seg Neuts % (Manual) Lymphocytes % (Manual) Nucleated RBC % Seg Neutrophils # Seg Neutrophils # Man Lymphocytes # (Manual) Monocytes # (Manual) Eosinophils # (Manual) PT INR APTT D-Dimer Heparin Anti-Xa Level ABG pH POC ABG pCO2 POC ABG pO2 ABG pO2 ABG HCO3 ABG O2 Saturation ABG Base Excess ABG Hemoglobin ABG Oxyhemoglobin ABG Sodium ABG Potassium ABG Chloride ABG Glucose Oxyhemoglobin Carboxyhemoglobin Sodium Potassium Chloride Carbon Dioxide BUN Creatinine Glucose POC Glucose 170 H 215 H 256 H Lactic Acid Calcium Magnesium Ferritin Total Bilirubin Direct Bilirubin AST ALT Alkaline Phosphatase Lactate Dehydrogenase C-Reactive Protein Total Protein Albumin Triglycerides Lipase Arterial Blood Glucose Arterial Blood Ionized Calcium Urine WBC (Auto) Coronavirus (PCR) SARS-CoV-2 IgG Ab Crossmatch 06/21/20 06/21/20 06/21/20 04:00 05:14 05:51 WBC RBC Hgb Hct MCV MCH MCHC RDW Lymph % (Auto) [place] % (Auto) Lymph # (Auto) [place] # (Auto) Baso # (Auto) Seg Neutrophils % Seg Neuts % (Manual) Lymphocytes % (Manual) Nucleated RBC % Seg Neutrophils # Seg Neutrophils # Man Lymphocytes # (Manual) Monocytes # (Manual) Eosinophils # (Manual) PT INR APTT D-Dimer Heparin Anti-Xa Level ABG pH 7.474 H POC ABG pCO2 POC ABG pO2 ABG pO2 ABG HCO3 52.1 H ABG O2 Saturation ABG Base Excess 23.3 H ABG Hemoglobin 5.3 L ABG Oxyhemoglobin ABG Sodium ABG Potassium ABG Chloride ABG Glucose Oxyhemoglobin 93.8 L Carboxyhemoglobin Sodium Potassium Chloride Carbon Dioxide BUN Creatinine Glucose POC Glucose 122 H 129 H Lactic Acid Calcium Magnesium Ferritin Total Bilirubin Direct Bilirubin AST ALT Alkaline Phosphatase Lactate Dehydrogenase C-Reactive Protein Total Protein Albumin Triglycerides Lipase Arterial Blood Glucose Arterial Blood Ionized Calcium Urine WBC (Auto) Coronavirus (PCR) SARS-CoV-2 IgG Ab Crossmatch 06/21/20 06/21/20 06/21/20 11:00 11:00 11:42 WBC 14.2 H RBC 1.85 L Hgb 6.2 L Hct 19.5 L* MCV 105 H MCH 34 H MCHC RDW 18.0 H Lymph % (Auto) [place] % (Auto) Lymph # (Auto) [place] # (Auto) Baso # (Auto) Seg Neutrophils % Seg Neuts % (Manual) Lymphocytes % (Manual) Nucleated RBC % Seg Neutrophils # Seg Neutrophils # Man Lymphocytes # (Manual) Monocytes # (Manual) Eosinophils # (Manual) PT INR APTT D-Dimer Heparin Anti-Xa Level ABG pH POC ABG pCO2 POC ABG pO2 ABG pO2 ABG HCO3 ABG O2 Saturation ABG Base Excess ABG Hemoglobin ABG Oxyhemoglobin ABG Sodium ABG Potassium ABG Chloride ABG Glucose Oxyhemoglobin Carboxyhemoglobin Sodium 147 H Potassium Chloride Carbon Dioxide 51 H* BUN 31 H Creatinine 0.5 L Glucose 224 H POC Glucose 217 H Lactic Acid Calcium Magnesium Ferritin Total Bilirubin Direct Bilirubin AST ALT Alkaline Phosphatase Lactate Dehydrogenase C-Reactive Protein Total Protein Albumin Triglycerides Lipase Arterial Blood Glucose Arterial Blood Ionized Calcium Urine WBC (Auto) Coronavirus (PCR) SARS-CoV-2 IgG Ab Crossmatch 06/21/20 06/21/20 06/21/20 14:18 14:30 18:36 WBC RBC Hgb Hct MCV MCH MCHC RDW Lymph % (Auto) [place] % (Auto) Lymph # (Auto) [place] # (Auto) Baso # (Auto) Seg Neutrophils % Seg Neuts % (Manual) Lymphocytes % (Manual) Nucleated RBC % Seg Neutrophils # Seg Neutrophils # Man Lymphocytes # (Manual) Monocytes # (Manual) Eosinophils # (Manual) PT 15.1 H INR 1.19 H APTT D-Dimer Heparin Anti-Xa Level ABG pH POC ABG pCO2 POC ABG pO2 ABG pO2 ABG HCO3 ABG O2 Saturation ABG Base Excess ABG Hemoglobin ABG Oxyhemoglobin ABG Sodium ABG Potassium ABG Chloride ABG Glucose Oxyhemoglobin Carboxyhemoglobin Sodium Potassium Chloride Carbon Dioxide BUN Creatinine Glucose POC Glucose 185 H Lactic Acid Calcium Magnesium Ferritin Total Bilirubin Direct Bilirubin AST ALT Alkaline Phosphatase Lactate Dehydrogenase C-Reactive Protein Total Protein Albumin Triglycerides Lipase Arterial Blood Glucose Arterial Blood Ionized Calcium Urine WBC (Auto) Coronavirus (PCR) SARS-CoV-2 IgG Ab Crossmatch See Detail 06/21/20 06/22/20 06/22/20 21:14 03:50 04:00 WBC RBC Hgb Hct MCV MCH MCHC RDW Lymph % (Auto) [place] % (Auto) Lymph # (Auto) [place] # (Auto) Baso # (Auto) Seg Neutrophils % Seg Neuts % (Manual) Lymphocytes % (Manual) Nucleated RBC % Seg Neutrophils # Seg Neutrophils # Man Lymphocytes # (Manual) Monocytes # (Manual) Eosinophils # (Manual) PT INR APTT D-Dimer Heparin Anti-Xa Level ABG pH 7.451 H POC ABG pCO2 POC ABG pO2 ABG pO2 ABG HCO3 47.5 H ABG O2 Saturation ABG Base Excess 22.0 H ABG Hemoglobin < 5.1 L ABG Oxyhemoglobin ABG Sodium ABG Potassium ABG Chloride ABG Glucose Oxyhemoglobin 94.1 L Carboxyhemoglobin Sodium 149 H Potassium 3.5 L Chloride Carbon Dioxide 42 H* D BUN 34 H Creatinine 0.4 L Glucose 219 H POC Glucose 250 H Lactic Acid Calcium Magnesium Ferritin Total Bilirubin Direct Bilirubin AST ALT Alkaline Phosphatase Lactate Dehydrogenase C-Reactive Protein Total Protein Albumin Triglycerides Lipase Arterial Blood Glucose Arterial Blood Ionized Calcium Urine WBC (Auto) Coronavirus (PCR) SARS-CoV-2 IgG Ab Crossmatch 06/22/20 06/22/20 06/22/20 12:16 14:29 17:56 WBC RBC Hgb Hct MCV MCH MCHC RDW Lymph % (Auto) [place] % (Auto) Lymph # (Auto) [place] # (Auto) Baso # (Auto) Seg Neutrophils % Seg Neuts % (Manual) Lymphocytes % (Manual) Nucleated RBC % Seg Neutrophils # Seg Neutrophils # Man Lymphocytes # (Manual) Monocytes # (Manual) Eosinophils # (Manual) PT 11.8 L INR APTT 23.5 L D-Dimer Heparin Anti-Xa Level ABG pH POC ABG pCO2 POC ABG pO2 ABG pO2 ABG HCO3 ABG O2 Saturation ABG Base Excess ABG Hemoglobin ABG Oxyhemoglobin ABG Sodium ABG Potassium ABG Chloride ABG Glucose Oxyhemoglobin Carboxyhemoglobin Sodium Potassium Chloride Carbon Dioxide BUN Creatinine Glucose POC Glucose 215 H 215 H Lactic Acid Calcium Magnesium Ferritin Total Bilirubin Direct Bilirubin AST ALT Alkaline Phosphatase Lactate Dehydrogenase C-Reactive Protein Total Protein Albumin Triglycerides Lipase Arterial Blood Glucose Arterial Blood Ionized Calcium Urine WBC (Auto) Coronavirus (PCR) SARS-CoV-2 IgG Ab Crossmatch 06/22/20 06/22/20 06/22/20 23:36 23:45 Unknown WBC 14.1 H RBC 2.70 L Hgb 8.9 L 8.9 L Hct 26.9 L 27.2 L D MCV 101 H MCH 33 H MCHC RDW 17.7 H Lymph % (Auto) [place] % (Auto) Lymph # (Auto) [place] # (Auto) Baso # (Auto) Seg Neutrophils % Seg Neuts % (Manual) 92.0 H Lymphocytes % (Manual) 5.0 L Nucleated RBC % Seg Neutrophils # Seg Neutrophils # Man 13.0 H Lymphocytes # (Manual) 0.7 L Monocytes # (Manual) Eosinophils # (Manual) PT INR APTT D-Dimer Heparin Anti-Xa Level ABG pH POC ABG pCO2 POC ABG pO2 ABG pO2 ABG HCO3 ABG O2 Saturation ABG Base Excess ABG Hemoglobin ABG Oxyhemoglobin ABG Sodium ABG Potassium ABG Chloride ABG Glucose Oxyhemoglobin Carboxyhemoglobin Sodium Potassium Chloride Carbon Dioxide BUN Creatinine Glucose POC Glucose 208 H Lactic Acid Calcium Magnesium Ferritin Total Bilirubin Direct Bilirubin AST ALT Alkaline Phosphatase Lactate Dehydrogenase C-Reactive Protein Total Protein Albumin Triglycerides Lipase Arterial Blood Glucose Arterial Blood Ionized Calcium Urine WBC (Auto) Coronavirus (PCR) SARS-CoV-2 IgG Ab Crossmatch 06/23/20 06/23/20 06/23/20 05:17 05:19 06:50 WBC RBC Hgb Hct MCV MCH MCHC RDW Lymph % (Auto) [place] % (Auto) Lymph # (Auto) [place] # (Auto) Baso # (Auto) Seg Neutrophils % Seg Neuts % (Manual) Lymphocytes % (Manual) Nucleated RBC % Seg Neutrophils # Seg Neutrophils # Man Lymphocytes # (Manual) Monocytes # (Manual) Eosinophils # (Manual) PT INR APTT D-Dimer Heparin Anti-Xa Level ABG pH POC ABG pCO2 69.7 H POC ABG pO2 63.3 L ABG pO2 ABG HCO3 ABG O2 Saturation ABG Base Excess ABG Hemoglobin 10.1 L ABG Oxyhemoglobin ABG Sodium ABG Potassium 3.3 L ABG Chloride ABG Glucose 226 H Oxyhemoglobin Carboxyhemoglobin Sodium Potassium 3.0 L Chloride Carbon Dioxide 41 H* BUN 26 H Creatinine 0.4 L Glucose 209 H POC Glucose 200 H Lactic Acid Calcium Magnesium Ferritin Total Bilirubin Direct Bilirubin AST ALT Alkaline Phosphatase Lactate Dehydrogenase C-Reactive Protein Total Protein Albumin 2.9 L Triglycerides Lipase Arterial Blood Glucose 226 H Arterial Blood Ionized Calcium Urine WBC (Auto) Coronavirus (PCR) SARS-CoV-2 IgG Ab Crossmatch 06/23/20 06/23/20 06/23/20 09:41 12:04 18:16 WBC RBC Hgb 9.1 L Hct 28.0 L MCV MCH MCHC RDW Lymph % (Auto) [place] % (Auto) Lymph # (Auto) [place] # (Auto) Baso # (Auto) Seg Neutrophils % Seg Neuts % (Manual) Lymphocytes % (Manual) Nucleated RBC % Seg Neutrophils # Seg Neutrophils # Man Lymphocytes # (Manual) Monocytes # (Manual) Eosinophils # (Manual) PT INR APTT D-Dimer Heparin Anti-Xa Level ABG pH POC ABG pCO2 POC ABG pO2 ABG pO2 ABG HCO3 ABG O2 Saturation ABG Base Excess ABG Hemoglobin ABG Oxyhemoglobin ABG Sodium ABG Potassium ABG Chloride ABG Glucose Oxyhemoglobin Carboxyhemoglobin Sodium Potassium Chloride Carbon Dioxide BUN Creatinine Glucose POC Glucose 146 H 162 H Lactic Acid Calcium Magnesium Ferritin Total Bilirubin Direct Bilirubin AST ALT Alkaline Phosphatase Lactate Dehydrogenase C-Reactive Protein Total Protein Albumin Triglycerides Lipase Arterial Blood Glucose Arterial Blood Ionized Calcium Urine WBC (Auto) Coronavirus (PCR) SARS-CoV-2 IgG Ab Crossmatch 06/23/20 06/23/20 06/24/20 23:24 23:41 02:39 WBC RBC Hgb 8.2 L 8.8 L Hct 24.9 L 26.8 L MCV MCH MCHC RDW Lymph % (Auto) [place] % (Auto) Lymph # (Auto) [place] # (Auto) Baso # (Auto) Seg Neutrophils % Seg Neuts % (Manual) Lymphocytes % (Manual) Nucleated RBC % Seg Neutrophils # Seg Neutrophils # Man Lymphocytes # (Manual) Monocytes # (Manual) Eosinophils # (Manual) PT INR APTT D-Dimer Heparin Anti-Xa Level ABG pH POC ABG pCO2 POC ABG pO2 ABG pO2 ABG HCO3 ABG O2 Saturation ABG Base Excess ABG Hemoglobin ABG Oxyhemoglobin ABG Sodium ABG Potassium ABG Chloride ABG Glucose Oxyhemoglobin Carboxyhemoglobin Sodium Potassium Chloride Carbon Dioxide BUN Creatinine Glucose POC Glucose 248 H Lactic Acid Calcium Magnesium Ferritin Total Bilirubin Direct Bilirubin AST ALT Alkaline Phosphatase Lactate Dehydrogenase C-Reactive Protein Total Protein Albumin Triglycerides Lipase Arterial Blood Glucose Arterial Blood Ionized Calcium Urine WBC (Auto) Coronavirus (PCR) SARS-CoV-2 IgG Ab Crossmatch 06/24/20 06/24/20 06/24/20 02:39 02:45 05:31 WBC RBC Hgb Hct MCV MCH MCHC RDW Lymph % (Auto) [place] % (Auto) Lymph # (Auto) [place] # (Auto) Baso # (Auto) Seg Neutrophils % Seg Neuts % (Manual) Lymphocytes % (Manual) Nucleated RBC % Seg Neutrophils # Seg Neutrophils # Man Lymphocytes # (Manual) Monocytes # (Manual) Eosinophils # (Manual) PT INR APTT D-Dimer Heparin Anti-Xa Level ABG pH POC ABG pCO2 66.9 H POC ABG pO2 109.7 H ABG pO2 ABG HCO3 ABG O2 Saturation ABG Base Excess ABG Hemoglobin 9.7 L ABG Oxyhemoglobin ABG Sodium 135.0 L ABG Potassium ABG Chloride 97.0 L ABG Glucose 277 H Oxyhemoglobin Carboxyhemoglobin Sodium 136 L Potassium Chloride 95.0 L Carbon Dioxide 34 H D BUN 24 H Creatinine 0.3 L Glucose 260 H POC Glucose 164 H Lactic Acid Calcium Magnesium Ferritin Total Bilirubin Direct Bilirubin AST ALT Alkaline Phosphatase Lactate Dehydrogenase C-Reactive Protein Total Protein 5.2 L Albumin 2.6 L Triglycerides Lipase Arterial Blood Glucose 277 H Arterial Blood Ionized Calcium Urine WBC (Auto) Coronavirus (PCR) SARS-CoV-2 IgG Ab Crossmatch 06/24/20 06/24/20 06/24/20 10:00 11:49 17:39 WBC RBC Hgb 8.9 L Hct 26.5 L MCV MCH MCHC RDW Lymph % (Auto) [place] % (Auto) Lymph # (Auto) [place] # (Auto) Baso # (Auto) Seg Neutrophils % Seg Neuts % (Manual) Lymphocytes % (Manual) Nucleated RBC % Seg Neutrophils # Seg Neutrophils # Man Lymphocytes # (Manual) Monocytes # (Manual) Eosinophils # (Manual) PT INR APTT D-Dimer Heparin Anti-Xa Level ABG pH POC ABG pCO2 POC ABG pO2 ABG pO2 ABG HCO3 ABG O2 Saturation ABG Base Excess ABG Hemoglobin ABG Oxyhemoglobin ABG Sodium ABG Potassium ABG Chloride ABG Glucose Oxyhemoglobin Carboxyhemoglobin Sodium Potassium Chloride Carbon Dioxide BUN Creatinine Glucose POC Glucose 198 H 223 H Lactic Acid Calcium Magnesium Ferritin Total Bilirubin Direct Bilirubin AST ALT Alkaline Phosphatase Lactate Dehydrogenase C-Reactive Protein Total Protein Albumin Triglycerides Lipase Arterial Blood Glucose Arterial Blood Ionized Calcium Urine WBC (Auto) Coronavirus (PCR) SARS-CoV-2 IgG Ab Crossmatch 06/24/20 06/25/20 06/25/20 23:56 02:16 04:08 WBC RBC Hgb Hct MCV MCH MCHC RDW Lymph % (Auto) [place] % (Auto) Lymph # (Auto) [place] # (Auto) Baso # (Auto) Seg Neutrophils % Seg Neuts % (Manual) Lymphocytes % (Manual) Nucleated RBC % Seg Neutrophils # Seg Neutrophils # Man Lymphocytes # (Manual) Monocytes # (Manual) Eosinophils # (Manual) PT INR APTT D-Dimer Heparin Anti-Xa Level ABG pH 7.454 H POC ABG pCO2 56.9 H POC ABG pO2 61.0 L ABG pO2 ABG HCO3 ABG O2 Saturation ABG Base Excess ABG Hemoglobin ABG Oxyhemoglobin ABG Sodium 134.3 L ABG Potassium ABG Chloride 92.0 L ABG Glucose 246 H Oxyhemoglobin Carboxyhemoglobin Sodium 134 L Potassium Chloride 89.7 L Carbon Dioxide 36 H BUN Creatinine 0.3 L Glucose 254 H POC Glucose 225 H Lactic Acid Calcium Magnesium Ferritin Total Bilirubin Direct Bilirubin AST ALT Alkaline Phosphatase Lactate Dehydrogenase C-Reactive Protein Total Protein Albumin 2.9 L Triglycerides Lipase Arterial Blood Glucose 246 H Arterial Blood Ionized Calcium Urine WBC (Auto) Coronavirus (PCR) SARS-CoV-2 IgG Ab Crossmatch 06/25/20 06/25/20 06/25/20 05:44 11:35 17:33 WBC RBC Hgb Hct MCV MCH MCHC RDW Lymph % (Auto) [place] % (Auto) Lymph # (Auto) [place] # (Auto) Baso # (Auto) Seg Neutrophils % Seg Neuts % (Manual) Lymphocytes % (Manual) Nucleated RBC % Seg Neutrophils # Seg Neutrophils # Man Lymphocytes # (Manual) Monocytes # (Manual) Eosinophils # (Manual) PT INR APTT D-Dimer Heparin Anti-Xa Level ABG pH POC ABG pCO2 POC ABG pO2 ABG pO2 ABG HCO3 ABG O2 Saturation ABG Base Excess ABG Hemoglobin ABG Oxyhemoglobin ABG Sodium ABG Potassium ABG Chloride ABG Glucose Oxyhemoglobin Carboxyhemoglobin Sodium Potassium Chloride Carbon Dioxide BUN Creatinine Glucose POC Glucose 170 H 175 H 229 H Lactic Acid Calcium Magnesium Ferritin Total Bilirubin Direct Bilirubin AST ALT Alkaline Phosphatase Lactate Dehydrogenase C-Reactive Protein Total Protein Albumin Triglycerides Lipase Arterial Blood Glucose Arterial Blood Ionized Calcium Urine WBC (Auto) Coronavirus (PCR) SARS-CoV-2 IgG Ab Crossmatch 06/25/20 06/26/20 06/26/20 23:55 02:17 02:17 WBC RBC Hgb 10.0 L Hct 30.4 L MCV MCH MCHC RDW Lymph % (Auto) [place] % (Auto) Lymph # (Auto) [place] # (Auto) Baso # (Auto) Seg Neutrophils % Seg Neuts % (Manual) Lymphocytes % (Manual) Nucleated RBC % Seg Neutrophils # Seg Neutrophils # Man Lymphocytes # (Manual) Monocytes # (Manual) Eosinophils # (Manual) PT INR APTT D-Dimer Heparin Anti-Xa Level ABG pH POC ABG pCO2 POC ABG pO2 ABG pO2 ABG HCO3 ABG O2 Saturation ABG Base Excess ABG Hemoglobin ABG Oxyhemoglobin ABG Sodium ABG Potassium ABG Chloride ABG Glucose Oxyhemoglobin Carboxyhemoglobin Sodium 136 L Potassium Chloride 90.1 L Carbon Dioxide 39 H BUN Creatinine 0.2 L Glucose 232 H POC Glucose 192 H Lactic Acid Calcium Magnesium Ferritin Total Bilirubin Direct Bilirubin AST ALT Alkaline Phosphatase Lactate Dehydrogenase C-Reactive Protein Total Protein 6.1 L Albumin 2.9 L Triglycerides Lipase Arterial Blood Glucose Arterial Blood Ionized Calcium Urine WBC (Auto) Coronavirus (PCR) SARS-CoV-2 IgG Ab Crossmatch 06/26/20 06/26/20 06/26/20 04:15 04:49 05:28 WBC RBC Hgb Hct MCV MCH MCHC RDW Lymph % (Auto) [place] % (Auto) Lymph # (Auto) [place] # (Auto) Baso # (Auto) Seg Neutrophils % Seg Neuts % (Manual) Lymphocytes % (Manual) Nucleated RBC % Seg Neutrophils # Seg Neutrophils # Man Lymphocytes # (Manual) Monocytes # (Manual) Eosinophils # (Manual) PT INR APTT D-Dimer Heparin Anti-Xa Level ABG pH 7.453 H POC ABG pCO2 59.6 H POC ABG pO2 ABG pO2 ABG HCO3 ABG O2 Saturation ABG Base Excess ABG Hemoglobin 10.0 L ABG Oxyhemoglobin ABG Sodium 134.2 L ABG Potassium 3.3 L ABG Chloride 92.0 L ABG Glucose 305 H Oxyhemoglobin Carboxyhemoglobin Sodium Potassium Chloride Carbon Dioxide BUN Creatinine Glucose POC Glucose 234 H Lactic Acid Calcium Magnesium Ferritin Total Bilirubin Direct Bilirubin AST ALT Alkaline Phosphatase Lactate Dehydrogenase C-Reactive Protein Total Protein Albumin Triglycerides 203 H Lipase Arterial Blood Glucose 305 H Arterial Blood Ionized Calcium Urine WBC (Auto) Coronavirus (PCR) SARS-CoV-2 IgG Ab Crossmatch 06/26/20 06/26/20 06/26/20 11:58 17:58 21:32 WBC RBC Hgb Hct MCV MCH MCHC RDW Lymph % (Auto) [place] % (Auto) Lymph # (Auto) [place] # (Auto) Baso # (Auto) Seg Neutrophils % Seg Neuts % (Manual) Lymphocytes % (Manual) Nucleated RBC % Seg Neutrophils # Seg Neutrophils # Man Lymphocytes # (Manual) Monocytes # (Manual) Eosinophils # (Manual) PT INR APTT D-Dimer Heparin Anti-Xa Level ABG pH POC ABG pCO2 POC ABG pO2 ABG pO2 ABG HCO3 ABG O2 Saturation ABG Base Excess ABG Hemoglobin ABG Oxyhemoglobin ABG Sodium ABG Potassium ABG Chloride ABG Glucose Oxyhemoglobin Carboxyhemoglobin Sodium Potassium Chloride Carbon Dioxide BUN Creatinine Glucose POC Glucose 198 H 193 H 191 H Lactic Acid Calcium Magnesium Ferritin Total Bilirubin Direct Bilirubin AST ALT Alkaline Phosphatase Lactate Dehydrogenase C-Reactive Protein Total Protein Albumin Triglycerides Lipase Arterial Blood Glucose Arterial Blood Ionized Calcium Urine WBC (Auto) Coronavirus (PCR) SARS-CoV-2 IgG Ab Crossmatch 06/26/20 06/27/20 06/27/20 23:40 04:35 05:32 WBC RBC Hgb Hct MCV MCH MCHC RDW Lymph % (Auto) [place] % (Auto) Lymph # (Auto) [place] # (Auto) Baso # (Auto) Seg Neutrophils % Seg Neuts % (Manual) Lymphocytes % (Manual) Nucleated RBC % Seg Neutrophils # Seg Neutrophils # Man Lymphocytes # (Manual) Monocytes # (Manual) Eosinophils # (Manual) PT INR APTT D-Dimer Heparin Anti-Xa Level ABG pH 7.464 H POC ABG pCO2 60.8 H POC ABG pO2 ABG pO2 ABG HCO3 ABG O2 Saturation ABG Base Excess ABG Hemoglobin 10.1 L ABG Oxyhemoglobin ABG Sodium ABG Potassium 2.9 L ABG Chloride 92.0 L ABG Glucose 298 H Oxyhemoglobin Carboxyhemoglobin Sodium Potassium Chloride Carbon Dioxide BUN Creatinine Glucose POC Glucose 241 H 211 H Lactic Acid Calcium Magnesium Ferritin Total Bilirubin Direct Bilirubin AST ALT Alkaline Phosphatase Lactate Dehydrogenase C-Reactive Protein Total Protein Albumin Triglycerides Lipase Arterial Blood Glucose 298 H Arterial Blood Ionized Calcium Urine WBC (Auto) Coronavirus (PCR) SARS-CoV-2 IgG Ab Crossmatch 06/27/20 06/27/20 06/27/20 12:37 18:08 20:52 WBC RBC Hgb Hct MCV MCH MCHC RDW Lymph % (Auto) [place] % (Auto) Lymph # (Auto) [place] # (Auto) Baso # (Auto) Seg Neutrophils % Seg Neuts % (Manual) Lymphocytes % (Manual) Nucleated RBC % Seg Neutrophils # Seg Neutrophils # Man Lymphocytes # (Manual) Monocytes # (Manual) Eosinophils # (Manual) PT INR APTT D-Dimer Heparin Anti-Xa Level ABG pH POC ABG pCO2 POC ABG pO2 ABG pO2 ABG HCO3 ABG O2 Saturation ABG Base Excess ABG Hemoglobin ABG Oxyhemoglobin ABG Sodium ABG Potassium ABG Chloride ABG Glucose Oxyhemoglobin Carboxyhemoglobin Sodium Potassium Chloride Carbon Dioxide BUN Creatinine Glucose POC Glucose 182 H 197 H 195 H Lactic Acid Calcium Magnesium Ferritin Total Bilirubin Direct Bilirubin AST ALT Alkaline Phosphatase Lactate Dehydrogenase C-Reactive Protein Total Protein Albumin Triglycerides Lipase Arterial Blood Glucose Arterial Blood Ionized Calcium Urine WBC (Auto) Coronavirus (PCR) SARS-CoV-2 IgG Ab Crossmatch 06/27/20 06/28/20 06/28/20 Unknown 04:17 04:50 WBC RBC Hgb Hct MCV MCH MCHC RDW Lymph % (Auto) [place] % (Auto) Lymph # (Auto) [place] # (Auto) Baso # (Auto) Seg Neutrophils % Seg Neuts % (Manual) Lymphocytes % (Manual) Nucleated RBC % Seg Neutrophils # Seg Neutrophils # Man Lymphocytes # (Manual) Monocytes # (Manual) Eosinophils # (Manual) PT INR APTT D-Dimer Heparin Anti-Xa Level ABG pH POC ABG pCO2 58.6 H POC ABG pO2 60.1 L ABG pO2 ABG HCO3 ABG O2 Saturation ABG Base Excess ABG Hemoglobin 10.0 L ABG Oxyhemoglobin ABG Sodium 125.3 L ABG Potassium ABG Chloride 93.0 L ABG Glucose 308 H Oxyhemoglobin Carboxyhemoglobin Sodium Potassium 2.9 L* Chloride 93.4 L Carbon Dioxide 42 H* BUN Creatinine 0.3 L Glucose 211 H POC Glucose 252 H Lactic Acid Calcium 8.1 L Magnesium Ferritin Total Bilirubin Direct Bilirubin AST ALT Alkaline Phosphatase Lactate Dehydrogenase C-Reactive Protein Total Protein 5.1 L Albumin 2.4 L Triglycerides Lipase Arterial Blood Glucose 308 H Arterial Blood Ionized Calcium Urine WBC (Auto) Coronavirus (PCR) SARS-CoV-2 IgG Ab Crossmatch 06/28/20 06/28/20 06/28/20 06:35 06:35 11:36 WBC 18.9 H RBC 2.85 L Hgb 9.5 L Hct 28.4 L MCV 100 H MCH 33 H MCHC RDW 17.3 H Lymph % (Auto) [place] % (Auto) Lymph # (Auto) [place] # (Auto) Baso # (Auto) Seg Neutrophils % 88.6 H Seg Neuts % (Manual) 95.0 H Lymphocytes % (Manual) 1.0 L Nucleated RBC % Seg Neutrophils # 15.9 H Seg Neutrophils # Man 18.0 H Lymphocytes # (Manual) 0.2 L Monocytes # (Manual) Eosinophils # (Manual) PT INR APTT D-Dimer Heparin Anti-Xa Level ABG pH POC ABG pCO2 POC ABG pO2 ABG pO2 ABG HCO3 ABG O2 Saturation ABG Base Excess ABG Hemoglobin ABG Oxyhemoglobin ABG Sodium ABG Potassium ABG Chloride ABG Glucose Oxyhemoglobin Carboxyhemoglobin Sodium Potassium Chloride 94.2 L Carbon Dioxide 38 H BUN Creatinine 0.3 L Glucose 228 H POC Glucose 243 H Lactic Acid Calcium Magnesium Ferritin Total Bilirubin Direct Bilirubin AST ALT Alkaline Phosphatase Lactate Dehydrogenase C-Reactive Protein Total Protein 6.1 L Albumin 2.7 L Triglycerides Lipase Arterial Blood Glucose Arterial Blood Ionized Calcium Urine WBC (Auto) Coronavirus (PCR) SARS-CoV-2 IgG Ab Crossmatch 06/28/20 06/28/20 06/29/20 16:53 21:10 00:06 WBC RBC Hgb Hct MCV MCH MCHC RDW Lymph % (Auto) [place] % (Auto) Lymph # (Auto) [place] # (Auto) Baso # (Auto) Seg Neutrophils % Seg Neuts % (Manual) Lymphocytes % (Manual) Nucleated RBC % Seg Neutrophils # Seg Neutrophils # Man Lymphocytes # (Manual) Monocytes # (Manual) Eosinophils # (Manual) PT INR APTT D-Dimer Heparin Anti-Xa Level ABG pH POC ABG pCO2 POC ABG pO2 ABG pO2 ABG HCO3 ABG O2 Saturation ABG Base Excess ABG Hemoglobin ABG Oxyhemoglobin ABG Sodium ABG Potassium ABG Chloride ABG Glucose Oxyhemoglobin Carboxyhemoglobin Sodium Potassium Chloride Carbon Dioxide BUN Creatinine Glucose POC Glucose 211 H 195 H 200 H Lactic Acid Calcium Magnesium Ferritin Total Bilirubin Direct Bilirubin AST ALT Alkaline Phosphatase Lactate Dehydrogenase C-Reactive Protein Total Protein Albumin Triglycerides Lipase Arterial Blood Glucose Arterial Blood Ionized Calcium Urine WBC (Auto) Coronavirus (PCR) SARS-CoV-2 IgG Ab Crossmatch 06/29/20 06/29/20 06/29/20 03:11 04:00 04:00 WBC 18.8 H RBC 2.82 L Hgb 10.1 L Hct 28.5 L MCV 101 H MCH 36 H MCHC 36 H RDW 17.5 H Lymph % (Auto) 10.7 L [place] % (Auto) Lymph # (Auto) [place] # (Auto) 1.0 H Baso # (Auto) 0.3 H Seg Neutrophils % 82.2 H Seg Neuts % (Manual) Lymphocytes % (Manual) Nucleated RBC % Seg Neutrophils # 15.5 H Seg Neutrophils # Man Lymphocytes # (Manual) Monocytes # (Manual) Eosinophils # (Manual) PT INR APTT D-Dimer Heparin Anti-Xa Level ABG pH POC ABG pCO2 57.5 H POC ABG pO2 69.1 L ABG pO2 ABG HCO3 ABG O2 Saturation ABG Base Excess ABG Hemoglobin 10.2 L ABG Oxyhemoglobin 92.3 L ABG Sodium 130.7 L ABG Potassium 3.2 L ABG Chloride 93.0 L ABG Glucose 228 H Oxyhemoglobin Carboxyhemoglobin Sodium 134 L Potassium 3.3 L Chloride 89.5 L Carbon Dioxide 40 H BUN Creatinine 0.2 L Glucose 190 H POC Glucose Lactic Acid Calcium Magnesium Ferritin Total Bilirubin Direct Bilirubin AST < 5 L ALT < 5 L Alkaline Phosphatase Lactate Dehydrogenase C-Reactive Protein Total Protein 5.9 L Albumin 2.2 L Triglycerides Lipase Arterial Blood Glucose 228 H Arterial Blood Ionized Calcium Urine WBC (Auto) Coronavirus (PCR) SARS-CoV-2 IgG Ab Crossmatch 06/29/20 06/29/20 06/29/20 05:00 05:23 09:36 WBC RBC Hgb Hct MCV MCH MCHC RDW Lymph % (Auto) [place] % (Auto) Lymph # (Auto) [place] # (Auto) Baso # (Auto) Seg Neutrophils % Seg Neuts % (Manual) Lymphocytes % (Manual) Nucleated RBC % Seg Neutrophils # Seg Neutrophils # Man Lymphocytes # (Manual) Monocytes # (Manual) Eosinophils # (Manual) PT INR APTT D-Dimer Heparin Anti-Xa Level ABG pH POC ABG pCO2 POC ABG pO2 ABG pO2 ABG HCO3 ABG O2 Saturation ABG Base Excess ABG Hemoglobin ABG Oxyhemoglobin ABG Sodium ABG Potassium ABG Chloride ABG Glucose Oxyhemoglobin Carboxyhemoglobin Sodium Potassium Chloride Carbon Dioxide BUN Creatinine Glucose POC Glucose 165 H Lactic Acid Calcium Magnesium Ferritin Total Bilirubin Direct Bilirubin AST ALT Alkaline Phosphatase Lactate Dehydrogenase C-Reactive Protein Total Protein Albumin Triglycerides 1544 H 1799 H Lipase Arterial Blood Glucose Arterial Blood Ionized Calcium Urine WBC (Auto) Coronavirus (PCR) SARS-CoV-2 IgG Ab Crossmatch 06/29/20 06/29/20 06/29/20 09:36 12:02 18:00 WBC RBC Hgb Hct MCV MCH MCHC RDW Lymph % (Auto) [place] % (Auto) Lymph # (Auto) [place] # (Auto) Baso # (Auto) Seg Neutrophils % Seg Neuts % (Manual) Lymphocytes % (Manual) Nucleated RBC % Seg Neutrophils # Seg Neutrophils # Man Lymphocytes # (Manual) Monocytes # (Manual) Eosinophils # (Manual) PT INR APTT D-Dimer Heparin Anti-Xa Level ABG pH POC ABG pCO2 POC ABG pO2 ABG pO2 ABG HCO3 ABG O2 Saturation ABG Base Excess ABG Hemoglobin ABG Oxyhemoglobin ABG Sodium ABG Potassium ABG Chloride ABG Glucose Oxyhemoglobin Carboxyhemoglobin Sodium Potassium Chloride Carbon Dioxide BUN Creatinine Glucose POC Glucose 197 H 187 H Lactic Acid Calcium Magnesium Ferritin Total Bilirubin Direct Bilirubin AST ALT Alkaline Phosphatase Lactate Dehydrogenase C-Reactive Protein Total Protein Albumin Triglycerides Lipase 86 H Arterial Blood Glucose Arterial Blood Ionized Calcium Urine WBC (Auto) Coronavirus (PCR) SARS-CoV-2 IgG Ab Crossmatch 06/29/20 06/30/20 06/30/20 23:33 03:46 05:50 WBC RBC Hgb Hct MCV MCH MCHC RDW Lymph % (Auto) [place] % (Auto) Lymph # (Auto) [place] # (Auto) Baso # (Auto) Seg Neutrophils % Seg Neuts % (Manual) Lymphocytes % (Manual) Nucleated RBC % Seg Neutrophils # Seg Neutrophils # Man Lymphocytes # (Manual) Monocytes # (Manual) Eosinophils # (Manual) PT INR APTT D-Dimer Heparin Anti-Xa Level ABG pH 7.466 H POC ABG pCO2 57.3 H POC ABG pO2 66.1 L ABG pO2 ABG HCO3 ABG O2 Saturation ABG Base Excess ABG Hemoglobin 10.2 L ABG Oxyhemoglobin 92.3 L ABG Sodium 134.4 L ABG Potassium 3.2 L ABG Chloride 94.0 L ABG Glucose 178 H Oxyhemoglobin Carboxyhemoglobin Sodium Potassium Chloride Carbon Dioxide BUN Creatinine Glucose POC Glucose 170 H 170 H Lactic Acid Calcium Magnesium Ferritin Total Bilirubin Direct Bilirubin AST ALT Alkaline Phosphatase Lactate Dehydrogenase C-Reactive Protein Total Protein Albumin Triglycerides Lipase Arterial Blood Glucose 178 H Arterial Blood Ionized Calcium Urine WBC (Auto) Coronavirus (PCR) SARS-CoV-2 IgG Ab Crossmatch 06/30/20 06/30/20 06/30/20 07:00 07:00 12:04 WBC 15.6 H RBC 2.91 L Hgb 9.8 L Hct 29.7 L MCV 102 H MCH 34 H MCHC RDW 17.8 H Lymph % (Auto) [place] % (Auto) Lymph # (Auto) [place] # (Auto) Baso # (Auto) Seg Neutrophils % Seg Neuts % (Manual) Lymphocytes % (Manual) 5.0 L Nucleated RBC % Seg Neutrophils # Seg Neutrophils # Man 14.8 H Lymphocytes # (Manual) 0.8 L Monocytes # (Manual) Eosinophils # (Manual) PT INR APTT D-Dimer Heparin Anti-Xa Level ABG pH POC ABG pCO2 POC ABG pO2 ABG pO2 ABG HCO3 ABG O2 Saturation ABG Base Excess ABG Hemoglobin ABG Oxyhemoglobin ABG Sodium ABG Potassium ABG Chloride ABG Glucose Oxyhemoglobin Carboxyhemoglobin Sodium Potassium Chloride 93.3 L Carbon Dioxide 43 H* BUN Creatinine 0.3 L Glucose 260 H POC Glucose 245 H Lactic Acid Calcium Magnesium Ferritin Total Bilirubin Direct Bilirubin AST ALT Alkaline Phosphatase Lactate Dehydrogenase C-Reactive Protein Total Protein Albumin 2.8 L Triglycerides 452 H Lipase Arterial Blood Glucose Arterial Blood Ionized Calcium Urine WBC (Auto) Coronavirus (PCR) SARS-CoV-2 IgG Ab Crossmatch 06/30/20 07/01/20 07/01/20 17:32 00:02 05:02 WBC RBC Hgb Hct MCV MCH MCHC RDW Lymph % (Auto) [place] % (Auto) Lymph # (Auto) [place] # (Auto) Baso # (Auto) Seg Neutrophils % Seg Neuts % (Manual) Lymphocytes % (Manual) Nucleated RBC % Seg Neutrophils # Seg Neutrophils # Man Lymphocytes # (Manual) Monocytes # (Manual) Eosinophils # (Manual) PT INR APTT D-Dimer Heparin Anti-Xa Level ABG pH POC ABG pCO2 58.1 H POC ABG pO2 ABG pO2 ABG HCO3 ABG O2 Saturation ABG Base Excess ABG Hemoglobin 11.2 L ABG Oxyhemoglobin ABG Sodium 132.7 L ABG Potassium ABG Chloride 92.0 L ABG Glucose 238 H Oxyhemoglobin Carboxyhemoglobin Sodium Potassium Chloride Carbon Dioxide BUN Creatinine Glucose POC Glucose 209 H 208 H Lactic Acid Calcium Magnesium Ferritin Total Bilirubin Direct Bilirubin AST ALT Alkaline Phosphatase Lactate Dehydrogenase C-Reactive Protein Total Protein Albumin Triglycerides Lipase Arterial Blood Glucose 238 H Arterial Blood Ionized Calcium Urine WBC (Auto) Coronavirus (PCR) SARS-CoV-2 IgG Ab Crossmatch 07/01/20 07/01/20 07/01/20 06:16 06:41 06:41 WBC 18.1 H RBC 2.33 L Hgb 7.1 L Hct 21.3 L D MCV MCH MCHC RDW Lymph % (Auto) [place] % (Auto) Lymph # (Auto) [place] # (Auto) Baso # (Auto) Seg Neutrophils % Seg Neuts % (Manual) 82.0 H Lymphocytes % (Manual) 7.0 L Nucleated RBC % 1.0 H Seg Neutrophils # Seg Neutrophils # Man 14.8 H Lymphocytes # (Manual) Monocytes # (Manual) 1.1 H Eosinophils # (Manual) 0.5 H PT INR APTT D-Dimer Heparin Anti-Xa Level < 0.10 L ABG pH POC ABG pCO2 POC ABG pO2 ABG pO2 ABG HCO3 ABG O2 Saturation ABG Base Excess ABG Hemoglobin ABG Oxyhemoglobin ABG Sodium ABG Potassium ABG Chloride ABG Glucose Oxyhemoglobin Carboxyhemoglobin Sodium Potassium Chloride Carbon Dioxide BUN Creatinine Glucose POC Glucose 180 H Lactic Acid Calcium Magnesium Ferritin Total Bilirubin Direct Bilirubin AST ALT Alkaline Phosphatase Lactate Dehydrogenase C-Reactive Protein Total Protein Albumin Triglycerides Lipase Arterial Blood Glucose Arterial Blood Ionized Calcium Urine WBC (Auto) Coronavirus (PCR) SARS-CoV-2 IgG Ab Crossmatch 07/01/20 07/01/20 07/01/20 08:11 12:04 16:16 WBC RBC Hgb Hct MCV MCH MCHC RDW Lymph % (Auto) [place] % (Auto) Lymph # (Auto) [place] # (Auto) Baso # (Auto) Seg Neutrophils % Seg Neuts % (Manual) Lymphocytes % (Manual) Nucleated RBC % Seg Neutrophils # Seg Neutrophils # Man Lymphocytes # (Manual) Monocytes # (Manual) Eosinophils # (Manual) PT INR APTT D-Dimer Heparin Anti-Xa Level 1.02 H ABG pH POC ABG pCO2 POC ABG pO2 ABG pO2 ABG HCO3 ABG O2 Saturation ABG Base Excess ABG Hemoglobin ABG Oxyhemoglobin ABG Sodium ABG Potassium ABG Chloride ABG Glucose Oxyhemoglobin Carboxyhemoglobin Sodium 135 L Potassium 3.0 L Chloride 93.1 L Carbon Dioxide 40 H BUN Creatinine 0.3 L Glucose 140 H POC Glucose 223 H Lactic Acid Calcium Magnesium Ferritin Total Bilirubin Direct Bilirubin AST ALT Alkaline Phosphatase Lactate Dehydrogenase C-Reactive Protein Total Protein Albumin Triglycerides Lipase Arterial Blood Glucose Arterial Blood Ionized Calcium Urine WBC (Auto) Coronavirus (PCR) SARS-CoV-2 IgG Ab Crossmatch 07/01/20 07/01/20 07/02/20 17:09 23:19 00:56 WBC RBC Hgb Hct MCV MCH MCHC RDW Lymph % (Auto) [place] % (Auto) Lymph # (Auto) [place] # (Auto) Baso # (Auto) Seg Neutrophils % Seg Neuts % (Manual) Lymphocytes % (Manual) Nucleated RBC % Seg Neutrophils # Seg Neutrophils # Man Lymphocytes # (Manual) Monocytes # (Manual) Eosinophils # (Manual) PT INR APTT D-Dimer Heparin Anti-Xa Level 0.22 L ABG pH POC ABG pCO2 POC ABG pO2 ABG pO2 ABG HCO3 ABG O2 Saturation ABG Base Excess ABG Hemoglobin ABG Oxyhemoglobin ABG Sodium ABG Potassium ABG Chloride ABG Glucose Oxyhemoglobin Carboxyhemoglobin Sodium Potassium Chloride Carbon Dioxide BUN Creatinine Glucose POC Glucose 233 H 255 H Lactic Acid Calcium Magnesium Ferritin Total Bilirubin Direct Bilirubin AST ALT Alkaline Phosphatase Lactate Dehydrogenase C-Reactive Protein Total Protein Albumin Triglycerides Lipase Arterial Blood Glucose Arterial Blood Ionized Calcium Urine WBC (Auto) Coronavirus (PCR) SARS-CoV-2 IgG Ab Crossmatch 07/02/20 07/02/20 07/02/20 03:51 05:35 11:39 WBC RBC Hgb Hct MCV MCH MCHC RDW Lymph % (Auto) [place] % (Auto) Lymph # (Auto) [place] # (Auto) Baso # (Auto) Seg Neutrophils % Seg Neuts % (Manual) Lymphocytes % (Manual) Nucleated RBC % Seg Neutrophils # Seg Neutrophils # Man Lymphocytes # (Manual) Monocytes # (Manual) Eosinophils # (Manual) PT INR APTT D-Dimer Heparin Anti-Xa Level ABG pH POC ABG pCO2 54.9 H POC ABG pO2 52.1 L ABG pO2 ABG HCO3 ABG O2 Saturation ABG Base Excess ABG Hemoglobin 11.9 L ABG Oxyhemoglobin 82.8 L ABG Sodium 130.2 L ABG Potassium ABG Chloride 92.0 L ABG Glucose 249 H Oxyhemoglobin Carboxyhemoglobin 1.9 H Sodium Potassium Chloride Carbon Dioxide BUN Creatinine Glucose POC Glucose 205 H 235 H Lactic Acid Calcium Magnesium Ferritin Total Bilirubin Direct Bilirubin AST ALT Alkaline Phosphatase Lactate Dehydrogenase C-Reactive Protein Total Protein Albumin Triglycerides Lipase Arterial Blood Glucose 249 H Arterial Blood Ionized Calcium Urine WBC (Auto) Coronavirus (PCR) SARS-CoV-2 IgG Ab Crossmatch 07/02/20 07/02/20 07/02/20 16:08 16:08 17:54 WBC 19.8 H RBC 3.28 L Hgb 10.7 L D Hct 32.7 L D MCV 100 H MCH 33 H MCHC RDW 17.2 H Lymph % (Auto) [place] % (Auto) Lymph # (Auto) [place] # (Auto) Baso # (Auto) Seg Neutrophils % Seg Neuts % (Manual) Lymphocytes % (Manual) Nucleated RBC % Seg Neutrophils # Seg Neutrophils # Man Lymphocytes # (Manual) Monocytes # (Manual) Eosinophils # (Manual) PT INR APTT D-Dimer Heparin Anti-Xa Level ABG pH POC ABG pCO2 POC ABG pO2 ABG pO2 ABG HCO3 ABG O2 Saturation ABG Base Excess ABG Hemoglobin ABG Oxyhemoglobin ABG Sodium ABG Potassium ABG Chloride ABG Glucose Oxyhemoglobin Carboxyhemoglobin Sodium 136 L Potassium Chloride 92.4 L Carbon Dioxide 35 H BUN Creatinine 0.3 L Glucose 203 H POC Glucose 175 H Lactic Acid Calcium Magnesium Ferritin Total Bilirubin Direct Bilirubin AST ALT Alkaline Phosphatase Lactate Dehydrogenase C-Reactive Protein Total Protein Albumin Triglycerides Lipase Arterial Blood Glucose Arterial Blood Ionized Calcium Urine WBC (Auto) Coronavirus (PCR) SARS-CoV-2 IgG Ab Crossmatch 07/02/20 07/03/20 07/03/20 23:46 03:25 05:54 WBC RBC Hgb Hct MCV MCH MCHC RDW Lymph % (Auto) [place] % (Auto) Lymph # (Auto) [place] # (Auto) Baso # (Auto) Seg Neutrophils % Seg Neuts % (Manual) Lymphocytes % (Manual) Nucleated RBC % Seg Neutrophils # Seg Neutrophils # Man Lymphocytes # (Manual) Monocytes # (Manual) Eosinophils # (Manual) PT INR APTT D-Dimer Heparin Anti-Xa Level ABG pH 7.468 H POC ABG pCO2 51.5 H POC ABG pO2 ABG pO2 ABG HCO3 ABG O2 Saturation ABG Base Excess ABG Hemoglobin ABG Oxyhemoglobin ABG Sodium 130.2 L ABG Potassium ABG Chloride 91.0 L ABG Glucose 210 H Oxyhemoglobin Carboxyhemoglobin 1.6 H Sodium Potassium Chloride Carbon Dioxide BUN Creatinine Glucose POC Glucose 173 H 125 H Lactic Acid Calcium Magnesium Ferritin Total Bilirubin Direct Bilirubin AST ALT Alkaline Phosphatase Lactate Dehydrogenase C-Reactive Protein Total Protein Albumin Triglycerides Lipase Arterial Blood Glucose 210 H Arterial Blood Ionized Calcium Urine WBC (Auto) Coronavirus (PCR) SARS-CoV-2 IgG Ab Crossmatch 07/03/20 07/03/20 07/03/20 11:43 12:20 12:20 WBC 16.5 H RBC 3.13 L Hgb 10.4 L Hct 31.8 L MCV 102 H MCH 33 H MCHC RDW 17.2 H Lymph % (Auto) [place] % (Auto) Lymph # (Auto) [place] # (Auto) Baso # (Auto) Seg Neutrophils % Seg Neuts % (Manual) Lymphocytes % (Manual) Nucleated RBC % Seg Neutrophils # Seg Neutrophils # Man Lymphocytes # (Manual) Monocytes # (Manual) Eosinophils # (Manual) PT INR APTT D-Dimer Heparin Anti-Xa Level ABG pH POC ABG pCO2 POC ABG pO2 ABG pO2 ABG HCO3 ABG O2 Saturation ABG Base Excess ABG Hemoglobin ABG Oxyhemoglobin ABG Sodium ABG Potassium ABG Chloride ABG Glucose Oxyhemoglobin Carboxyhemoglobin Sodium 132 L Potassium Chloride 88.5 L Carbon Dioxide 37 H BUN Creatinine 0.3 L Glucose 230 H POC Glucose 223 H Lactic Acid Calcium Magnesium Ferritin Total Bilirubin Direct Bilirubin AST ALT Alkaline Phosphatase Lactate Dehydrogenase C-Reactive Protein Total Protein Albumin Triglycerides Lipase Arterial Blood Glucose Arterial Blood Ionized Calcium Urine WBC (Auto) Coronavirus (PCR) SARS-CoV-2 IgG Ab Crossmatch 07/03/20 07/03/20 07/04/20 17:24 21:41 00:54 WBC RBC Hgb Hct MCV MCH MCHC RDW Lymph % (Auto) [place] % (Auto) Lymph # (Auto) [place] # (Auto) Baso # (Auto) Seg Neutrophils % Seg Neuts % (Manual) Lymphocytes % (Manual) Nucleated RBC % Seg Neutrophils # Seg Neutrophils # Man Lymphocytes # (Manual) Monocytes # (Manual) Eosinophils # (Manual) PT INR APTT D-Dimer Heparin Anti-Xa Level ABG pH POC ABG pCO2 POC ABG pO2 ABG pO2 ABG HCO3 ABG O2 Saturation ABG Base Excess ABG Hemoglobin ABG Oxyhemoglobin ABG Sodium ABG Potassium ABG Chloride ABG Glucose Oxyhemoglobin Carboxyhemoglobin Sodium Potassium Chloride Carbon Dioxide BUN Creatinine Glucose POC Glucose 163 H 220 H 195 H Lactic Acid Calcium Magnesium Ferritin Total Bilirubin Direct Bilirubin AST ALT Alkaline Phosphatase Lactate Dehydrogenase C-Reactive Protein Total Protein Albumin Triglycerides Lipase Arterial Blood Glucose Arterial Blood Ionized Calcium Urine WBC (Auto) Coronavirus (PCR) SARS-CoV-2 IgG Ab Crossmatch 07/04/20 07/04/20 07/04/20 03:25 04:00 04:00 WBC 14.9 H RBC 2.91 L Hgb 9.5 L Hct 29.2 L MCV 100 H MCH 33 H MCHC RDW 16.7 H Lymph % (Auto) 8.4 L [place] % (Auto) Lymph # (Auto) [place] # (Auto) 1.1 H Baso # (Auto) Seg Neutrophils % 84.2 H Seg Neuts % (Manual) Lymphocytes % (Manual) Nucleated RBC % Seg Neutrophils # 12.6 H Seg Neutrophils # Man Lymphocytes # (Manual) Monocytes # (Manual) Eosinophils # (Manual) PT INR APTT D-Dimer Heparin Anti-Xa Level ABG pH 7.474 H POC ABG pCO2 POC ABG pO2 51.8 L ABG pO2 ABG HCO3 ABG O2 Saturation ABG Base Excess ABG Hemoglobin ABG Oxyhemoglobin ABG Sodium ABG Potassium ABG Chloride ABG Glucose Oxyhemoglobin Carboxyhemoglobin Sodium Potassium 3.4 L Chloride 92.1 L Carbon Dioxide 34 H BUN Creatinine 0.3 L Glucose 173 H POC Glucose Lactic Acid Calcium Magnesium Ferritin Total Bilirubin Direct Bilirubin AST ALT Alkaline Phosphatase Lactate Dehydrogenase C-Reactive Protein Total Protein Albumin Triglycerides Lipase Arterial Blood Glucose Arterial Blood Ionized Calcium Urine WBC (Auto) Coronavirus (PCR) SARS-CoV-2 IgG Ab Crossmatch 07/04/20 07/04/20 07/04/20 06:18 11:39 17:18 WBC RBC Hgb Hct MCV MCH MCHC RDW Lymph % (Auto) [place] % (Auto) Lymph # (Auto) [place] # (Auto) Baso # (Auto) Seg Neutrophils % Seg Neuts % (Manual) Lymphocytes % (Manual) Nucleated RBC % Seg Neutrophils # Seg Neutrophils # Man Lymphocytes # (Manual) Monocytes # (Manual) Eosinophils # (Manual) PT INR APTT D-Dimer Heparin Anti-Xa Level ABG pH POC ABG pCO2 POC ABG pO2 ABG pO2 ABG HCO3 ABG O2 Saturation ABG Base Excess ABG Hemoglobin ABG Oxyhemoglobin ABG Sodium ABG Potassium ABG Chloride ABG Glucose Oxyhemoglobin Carboxyhemoglobin Sodium Potassium Chloride Carbon Dioxide BUN Creatinine Glucose POC Glucose 158 H 257 H 148 H Lactic Acid Calcium Magnesium Ferritin Total Bilirubin Direct Bilirubin AST ALT Alkaline Phosphatase Lactate Dehydrogenase C-Reactive Protein Total Protein Albumin Triglycerides Lipase Arterial Blood Glucose Arterial Blood Ionized Calcium Urine WBC (Auto) Coronavirus (PCR) SARS-CoV-2 IgG Ab Crossmatch 07/04/20 07/05/20 07/05/20 23:23 03:13 05:18 WBC 13.3 H RBC 2.90 L Hgb 9.8 L Hct 29.3 L MCV 101 H MCH 34 H MCHC RDW 17.0 H Lymph % (Auto) 11.1 L [place] % (Auto) Lymph # (Auto) [place] # (Auto) Baso # (Auto) Seg Neutrophils % 82.3 H Seg Neuts % (Manual) Lymphocytes % (Manual) Nucleated RBC % Seg Neutrophils # 10.9 H Seg Neutrophils # Man Lymphocytes # (Manual) Monocytes # (Manual) Eosinophils # (Manual) PT INR APTT D-Dimer Heparin Anti-Xa Level ABG pH 7.48 H POC ABG pCO2 52.0 H POC ABG pO2 ABG pO2 ABG HCO3 ABG O2 Saturation ABG Base Excess ABG Hemoglobin 10.0 L ABG Oxyhemoglobin ABG Sodium 131.0 L ABG Potassium 3.3 L ABG Chloride 93.0 L ABG Glucose 177 H Oxyhemoglobin Carboxyhemoglobin Sodium Potassium Chloride Carbon Dioxide BUN Creatinine Glucose POC Glucose 227 H Lactic Acid Calcium Magnesium Ferritin Total Bilirubin Direct Bilirubin AST ALT Alkaline Phosphatase Lactate Dehydrogenase C-Reactive Protein Total Protein Albumin Triglycerides Lipase Arterial Blood Glucose 177 H Arterial Blood Ionized Calcium Urine WBC (Auto) Coronavirus (PCR) SARS-CoV-2 IgG Ab Crossmatch 07/05/20 07/05/20 07/05/20 05:18 05:25 05:57 WBC RBC Hgb Hct MCV MCH MCHC RDW Lymph % (Auto) [place] % (Auto) Lymph # (Auto) [place] # (Auto) Baso # (Auto) Seg Neutrophils % Seg Neuts % (Manual) Lymphocytes % (Manual) Nucleated RBC % Seg Neutrophils # Seg Neutrophils # Man Lymphocytes # (Manual) Monocytes # (Manual) Eosinophils # (Manual) PT INR APTT D-Dimer Heparin Anti-Xa Level ABG pH 7.519 H POC ABG pCO2 POC ABG pO2 198.6 H ABG pO2 ABG HCO3 ABG O2 Saturation ABG Base Excess ABG Hemoglobin 10.3 L ABG Oxyhemoglobin 98.7 H ABG Sodium 133.6 L ABG Potassium 3.3 L ABG Chloride 93.0 L ABG Glucose 175 H Oxyhemoglobin Carboxyhemoglobin Sodium Potassium 3.4 L Chloride 92.5 L Carbon Dioxide 36 H BUN Creatinine 0.3 L Glucose 148 H POC Glucose 170 H Lactic Acid Calcium Magnesium Ferritin Total Bilirubin Direct Bilirubin AST ALT Alkaline Phosphatase Lactate Dehydrogenase C-Reactive Protein Total Protein Albumin Triglycerides Lipase Arterial Blood Glucose 175 H Arterial Blood Ionized Calcium Urine WBC (Auto) Coronavirus (PCR) SARS-CoV-2 IgG Ab Crossmatch 07/05/20 07/05/20 07/06/20 11:37 18:39 00:04 WBC RBC Hgb Hct MCV MCH MCHC RDW Lymph % (Auto) [place] % (Auto) Lymph # (Auto) [place] # (Auto) Baso # (Auto) Seg Neutrophils % Seg Neuts % (Manual) Lymphocytes % (Manual) Nucleated RBC % Seg Neutrophils # Seg Neutrophils # Man Lymphocytes # (Manual) Monocytes # (Manual) Eosinophils # (Manual) PT INR APTT D-Dimer Heparin Anti-Xa Level ABG pH POC ABG pCO2 POC ABG pO2 ABG pO2 ABG HCO3 ABG O2 Saturation ABG Base Excess ABG Hemoglobin ABG Oxyhemoglobin ABG Sodium ABG Potassium ABG Chloride ABG Glucose Oxyhemoglobin Carboxyhemoglobin Sodium Potassium Chloride Carbon Dioxide BUN Creatinine Glucose POC Glucose 195 H 200 H 222 H Lactic Acid Calcium Magnesium Ferritin Total Bilirubin Direct Bilirubin AST ALT Alkaline Phosphatase Lactate Dehydrogenase C-Reactive Protein Total Protein Albumin Triglycerides Lipase Arterial Blood Glucose Arterial Blood Ionized Calcium Urine WBC (Auto) Coronavirus (PCR) SARS-CoV-2 IgG Ab Crossmatch 07/06/20 07/06/20 07/06/20 05:25 06:52 06:52 WBC 15.8 H RBC 3.17 L Hgb 10.4 L Hct 31.5 L MCV 99 H MCH 33 H MCHC RDW 17.0 H Lymph % (Auto) [place] % (Auto) Lymph # (Auto) [place] # (Auto) Baso # (Auto) Seg Neutrophils % Seg Neuts % (Manual) Lymphocytes % (Manual) Nucleated RBC % Seg Neutrophils # Seg Neutrophils # Man Lymphocytes # (Manual) Monocytes # (Manual) Eosinophils # (Manual) PT INR APTT D-Dimer Heparin Anti-Xa Level ABG pH POC ABG pCO2 POC ABG pO2 ABG pO2 ABG HCO3 ABG O2 Saturation ABG Base Excess ABG Hemoglobin ABG Oxyhemoglobin ABG Sodium ABG Potassium ABG Chloride ABG Glucose Oxyhemoglobin Carboxyhemoglobin Sodium 135 L Potassium 3.4 L Chloride 91.9 L Carbon Dioxide 38 H BUN Creatinine 0.3 L Glucose 189 H POC Glucose 165 H Lactic Acid Calcium Magnesium Ferritin Total Bilirubin Direct Bilirubin AST ALT Alkaline Phosphatase Lactate Dehydrogenase C-Reactive Protein Total Protein Albumin Triglycerides Lipase Arterial Blood Glucose Arterial Blood Ionized Calcium Urine WBC (Auto) Coronavirus (PCR) SARS-CoV-2 IgG Ab Crossmatch 07/06/20 07/06/20 07/06/20 13:01 18:04 23:08 WBC RBC Hgb Hct MCV MCH MCHC RDW Lymph % (Auto) [place] % (Auto) Lymph # (Auto) [place] # (Auto) Baso # (Auto) Seg Neutrophils % Seg Neuts % (Manual) Lymphocytes % (Manual) Nucleated RBC % Seg Neutrophils # Seg Neutrophils # Man Lymphocytes # (Manual) Monocytes # (Manual) Eosinophils # (Manual) PT INR APTT D-Dimer Heparin Anti-Xa Level ABG pH POC ABG pCO2 POC ABG pO2 ABG pO2 ABG HCO3 ABG O2 Saturation ABG Base Excess ABG Hemoglobin ABG Oxyhemoglobin ABG Sodium ABG Potassium ABG Chloride ABG Glucose Oxyhemoglobin Carboxyhemoglobin Sodium Potassium Chloride Carbon Dioxide BUN Creatinine Glucose POC Glucose 195 H 169 H 173 H Lactic Acid Calcium Magnesium Ferritin Total Bilirubin Direct Bilirubin AST ALT Alkaline Phosphatase Lactate Dehydrogenase C-Reactive Protein Total Protein Albumin Triglycerides Lipase Arterial Blood Glucose Arterial Blood Ionized Calcium Urine WBC (Auto) Coronavirus (PCR) SARS-CoV-2 IgG Ab Crossmatch 07/07/20 07/07/20 07/07/20 05:35 05:35 05:39 WBC 17.6 H RBC 3.16 L Hgb 10.4 L Hct 31.5 L MCV 100 H MCH 33 H MCHC RDW 16.7 H Lymph % (Auto) 11.1 L [place] % (Auto) Lymph # (Auto) [place] # (Auto) 1.0 H Baso # (Auto) Seg Neutrophils % 83.0 H Seg Neuts % (Manual) Lymphocytes % (Manual) Nucleated RBC % Seg Neutrophils # 14.6 H Seg Neutrophils # Man Lymphocytes # (Manual) Monocytes # (Manual) Eosinophils # (Manual) PT INR APTT D-Dimer Heparin Anti-Xa Level ABG pH POC ABG pCO2 POC ABG pO2 ABG pO2 ABG HCO3 ABG O2 Saturation ABG Base Excess ABG Hemoglobin ABG Oxyhemoglobin ABG Sodium ABG Potassium ABG Chloride ABG Glucose Oxyhemoglobin Carboxyhemoglobin Sodium 135 L Potassium 3.4 L Chloride 94.3 L Carbon Dioxide 32 H BUN Creatinine 0.2 L Glucose 240 H POC Glucose 191 H Lactic Acid Calcium Magnesium Ferritin Total Bilirubin Direct Bilirubin AST ALT Alkaline Phosphatase Lactate Dehydrogenase C-Reactive Protein Total Protein Albumin Triglycerides Lipase Arterial Blood Glucose Arterial Blood Ionized Calcium Urine WBC (Auto) Coronavirus (PCR) SARS-CoV-2 IgG Ab Crossmatch 07/07/20 07/07/20 07/07/20 12:08 16:39 23:41 WBC RBC Hgb Hct MCV MCH MCHC RDW Lymph % (Auto) [place] % (Auto) Lymph # (Auto) [place] # (Auto) Baso # (Auto) Seg Neutrophils % Seg Neuts % (Manual) Lymphocytes % (Manual) Nucleated RBC % Seg Neutrophils # Seg Neutrophils # Man Lymphocytes # (Manual) Monocytes # (Manual) Eosinophils # (Manual) PT INR APTT D-Dimer Heparin Anti-Xa Level ABG pH POC ABG pCO2 POC ABG pO2 ABG pO2 ABG HCO3 ABG O2 Saturation ABG Base Excess ABG Hemoglobin ABG Oxyhemoglobin ABG Sodium ABG Potassium ABG Chloride ABG Glucose Oxyhemoglobin Carboxyhemoglobin Sodium Potassium Chloride Carbon Dioxide BUN Creatinine Glucose POC Glucose 248 H 209 H 231 H Lactic Acid Calcium Magnesium Ferritin Total Bilirubin Direct Bilirubin AST ALT Alkaline Phosphatase Lactate Dehydrogenase C-Reactive Protein Total Protein Albumin Triglycerides Lipase Arterial Blood Glucose Arterial Blood Ionized Calcium Urine WBC (Auto) Coronavirus (PCR) SARS-CoV-2 IgG Ab Crossmatch 07/08/20 07/08/20 07/08/20 04:58 04:58 05:38 WBC 21.0 H RBC 2.86 L Hgb 9.2 L Hct 28.6 L MCV 100 H MCH MCHC RDW 16.7 H Lymph % (Auto) [place] % (Auto) Lymph # (Auto) [place] # (Auto) Baso # (Auto) Seg Neutrophils % Seg Neuts % (Manual) 93.0 H Lymphocytes % (Manual) 3.0 L Nucleated RBC % Seg Neutrophils # Seg Neutrophils # Man 19.5 H Lymphocytes # (Manual) 0.6 L Monocytes # (Manual) Eosinophils # (Manual) PT INR APTT D-Dimer Heparin Anti-Xa Level ABG pH POC ABG pCO2 POC ABG pO2 ABG pO2 ABG HCO3 ABG O2 Saturation ABG Base Excess ABG Hemoglobin ABG Oxyhemoglobin ABG Sodium ABG Potassium ABG Chloride ABG Glucose Oxyhemoglobin Carboxyhemoglobin Sodium Potassium 3.0 L Chloride Carbon Dioxide BUN Creatinine 0.2 L Glucose 201 H POC Glucose 161 H Lactic Acid Calcium 7.9 L D Magnesium Ferritin Total Bilirubin Direct Bilirubin AST ALT Alkaline Phosphatase Lactate Dehydrogenase C-Reactive Protein Total Protein Albumin Triglycerides Lipase Arterial Blood Glucose Arterial Blood Ionized Calcium Urine WBC (Auto) Coronavirus (PCR) SARS-CoV-2 IgG Ab Crossmatch 07/08/20 07/08/20 07/08/20 12:19 16:26 Unknown WBC RBC Hgb Hct MCV MCH MCHC RDW Lymph % (Auto) [place] % (Auto) Lymph # (Auto) [place] # (Auto) Baso # (Auto) Seg Neutrophils % Seg Neuts % (Manual) Lymphocytes % (Manual) Nucleated RBC % Seg Neutrophils # Seg Neutrophils # Man Lymphocytes # (Manual) Monocytes # (Manual) Eosinophils # (Manual) PT INR APTT D-Dimer Heparin Anti-Xa Level ABG pH POC ABG pCO2 POC ABG pO2 ABG pO2 75.3 L ABG HCO3 34.3 H ABG O2 Saturation ABG Base Excess 8.7 H ABG Hemoglobin 10.2 L ABG Oxyhemoglobin ABG Sodium ABG Potassium ABG Chloride ABG Glucose Oxyhemoglobin 93.7 L Carboxyhemoglobin Sodium Potassium Chloride Carbon Dioxide BUN Creatinine Glucose POC Glucose 152 H 173 H Lactic Acid Calcium Magnesium Ferritin Total Bilirubin Direct Bilirubin AST ALT Alkaline Phosphatase Lactate Dehydrogenase C-Reactive Protein Total Protein Albumin Triglycerides Lipase Arterial Blood Glucose Arterial Blood Ionized Calcium Urine WBC (Auto) Coronavirus (PCR) SARS-CoV-2 IgG Ab Crossmatch 07/09/20 07/09/20 07/09/20 00:01 06:00 11:55 WBC RBC Hgb Hct MCV MCH MCHC RDW Lymph % (Auto) [place] % (Auto) Lymph # (Auto) [place] # (Auto) Baso # (Auto) Seg Neutrophils % Seg Neuts % (Manual) Lymphocytes % (Manual) Nucleated RBC % Seg Neutrophils # Seg Neutrophils # Man Lymphocytes # (Manual) Monocytes # (Manual) Eosinophils # (Manual) PT INR APTT D-Dimer Heparin Anti-Xa Level ABG pH POC ABG pCO2 POC ABG pO2 ABG pO2 ABG HCO3 ABG O2 Saturation ABG Base Excess ABG Hemoglobin ABG Oxyhemoglobin ABG Sodium ABG Potassium ABG Chloride ABG Glucose Oxyhemoglobin Carboxyhemoglobin Sodium Potassium Chloride Carbon Dioxide BUN Creatinine Glucose POC Glucose 207 H 141 H 228 H Lactic Acid Calcium Magnesium Ferritin Total Bilirubin Direct Bilirubin AST ALT Alkaline Phosphatase Lactate Dehydrogenase C-Reactive Protein Total Protein Albumin Triglycerides Lipase Arterial Blood Glucose Arterial Blood Ionized Calcium Urine WBC (Auto) Coronavirus (PCR) SARS-CoV-2 IgG Ab Crossmatch 07/09/20 07/09/20 07/09/20 16:47 23:53 Unknown WBC RBC Hgb Hct MCV MCH MCHC RDW Lymph % (Auto) [place] % (Auto) Lymph # (Auto) [place] # (Auto) Baso # (Auto) Seg Neutrophils % Seg Neuts % (Manual) Lymphocytes % (Manual) Nucleated RBC % Seg Neutrophils # Seg Neutrophils # Man Lymphocytes # (Manual) Monocytes # (Manual) Eosinophils # (Manual) PT INR APTT D-Dimer Heparin Anti-Xa Level ABG pH POC ABG pCO2 POC ABG pO2 ABG pO2 ABG HCO3 ABG O2 Saturation ABG Base Excess ABG Hemoglobin ABG Oxyhemoglobin ABG Sodium ABG Potassium ABG Chloride ABG Glucose Oxyhemoglobin Carboxyhemoglobin Sodium 132 L Potassium Chloride 92.7 L Carbon Dioxide 35 H BUN Creatinine 0.2 L Glucose 234 H POC Glucose 136 H 219 H Lactic Acid Calcium Magnesium Ferritin Total Bilirubin Direct Bilirubin AST ALT Alkaline Phosphatase Lactate Dehydrogenase C-Reactive Protein Total Protein Albumin Triglycerides Lipase Arterial Blood Glucose Arterial Blood Ionized Calcium Urine WBC (Auto) Coronavirus (PCR) SARS-CoV-2 IgG Ab Crossmatch 07/10/20 07/10/20 07/10/20 05:20 12:05 18:38 WBC RBC Hgb Hct MCV MCH MCHC RDW Lymph % (Auto) [place] % (Auto) Lymph # (Auto) [place] # (Auto) Baso # (Auto) Seg Neutrophils % Seg Neuts % (Manual) Lymphocytes % (Manual) Nucleated RBC % Seg Neutrophils # Seg Neutrophils # Man Lymphocytes # (Manual) Monocytes # (Manual) Eosinophils # (Manual) PT INR APTT D-Dimer Heparin Anti-Xa Level ABG pH POC ABG pCO2 POC ABG pO2 ABG pO2 ABG HCO3 ABG O2 Saturation ABG Base Excess ABG Hemoglobin ABG Oxyhemoglobin ABG Sodium ABG Potassium ABG Chloride ABG Glucose Oxyhemoglobin Carboxyhemoglobin Sodium Potassium Chloride Carbon Dioxide BUN Creatinine Glucose POC Glucose 221 H 174 H 152 H Lactic Acid Calcium Magnesium Ferritin Total Bilirubin Direct Bilirubin AST ALT Alkaline Phosphatase Lactate Dehydrogenase C-Reactive Protein Total Protein Albumin Triglycerides Lipase Arterial Blood Glucose Arterial Blood Ionized Calcium Urine WBC (Auto) Coronavirus (PCR) SARS-CoV-2 IgG Ab Crossmatch 07/11/20 07/11/20 07/11/20 00:16 05:42 08:13 WBC 11.9 H RBC 3.13 L Hgb 10.2 L Hct 31.2 L MCV 100 H MCH 33 H MCHC RDW 16.4 H Lymph % (Auto) [place] % (Auto) 9.3 H Lymph # (Auto) [place] # (Auto) 1.1 H Baso # (Auto) Seg Neutrophils % 72.7 H Seg Neuts % (Manual) Lymphocytes % (Manual) Nucleated RBC % Seg Neutrophils # 8.7 H Seg Neutrophils # Man Lymphocytes # (Manual) Monocytes # (Manual) Eosinophils # (Manual) PT INR APTT D-Dimer Heparin Anti-Xa Level ABG pH POC ABG pCO2 POC ABG pO2 ABG pO2 ABG HCO3 ABG O2 Saturation ABG Base Excess ABG Hemoglobin ABG Oxyhemoglobin ABG Sodium ABG Potassium ABG Chloride ABG Glucose Oxyhemoglobin Carboxyhemoglobin Sodium Potassium Chloride Carbon Dioxide BUN Creatinine Glucose POC Glucose 170 H 186 H Lactic Acid Calcium Magnesium Ferritin Total Bilirubin Direct Bilirubin AST ALT Alkaline Phosphatase Lactate Dehydrogenase C-Reactive Protein Total Protein Albumin Triglycerides Lipase Arterial Blood Glucose Arterial Blood Ionized Calcium Urine WBC (Auto) Coronavirus (PCR) SARS-CoV-2 IgG Ab Crossmatch 07/11/20 07/11/20 07/11/20 08:13 11:35 18:07 WBC RBC Hgb Hct MCV MCH MCHC RDW Lymph % (Auto) [place] % (Auto) Lymph # (Auto) [place] # (Auto) Baso # (Auto) Seg Neutrophils % Seg Neuts % (Manual) Lymphocytes % (Manual) Nucleated RBC % Seg Neutrophils # Seg Neutrophils # Man Lymphocytes # (Manual) Monocytes # (Manual) Eosinophils # (Manual) PT INR APTT D-Dimer Heparin Anti-Xa Level ABG pH POC ABG pCO2 POC ABG pO2 ABG pO2 ABG HCO3 ABG O2 Saturation ABG Base Excess ABG Hemoglobin ABG Oxyhemoglobin ABG Sodium ABG Potassium ABG Chloride ABG Glucose Oxyhemoglobin Carboxyhemoglobin Sodium 135 L Potassium Chloride 92.8 L Carbon Dioxide 38 H BUN Creatinine 0.2 L Glucose 132 H POC Glucose 129 H 156 H Lactic Acid Calcium Magnesium Ferritin Total Bilirubin Direct Bilirubin AST ALT Alkaline Phosphatase Lactate Dehydrogenase C-Reactive Protein Total Protein Albumin Triglycerides Lipase Arterial Blood Glucose Arterial Blood Ionized Calcium Urine WBC (Auto) Coronavirus (PCR) SARS-CoV-2 IgG Ab Crossmatch 07/11/20 07/11/20 07/12/20 18:36 23:18 05:28 WBC RBC Hgb Hct MCV MCH MCHC RDW Lymph % (Auto) [place] % (Auto) Lymph # (Auto) [place] # (Auto) Baso # (Auto) Seg Neutrophils % Seg Neuts % (Manual) Lymphocytes % (Manual) Nucleated RBC % Seg Neutrophils # Seg Neutrophils # Man Lymphocytes # (Manual) Monocytes # (Manual) Eosinophils # (Manual) PT INR APTT D-Dimer Heparin Anti-Xa Level ABG pH POC ABG pCO2 POC ABG pO2 70.9 L ABG pO2 ABG HCO3 ABG O2 Saturation ABG Base Excess ABG Hemoglobin 10.8 L ABG Oxyhemoglobin 92.5 L ABG Sodium 131.8 L ABG Potassium 3.2 L ABG Chloride 91.0 L ABG Glucose 181 H Oxyhemoglobin Carboxyhemoglobin Sodium Potassium Chloride Carbon Dioxide BUN Creatinine Glucose POC Glucose 189 H 190 H Lactic Acid Calcium Magnesium Ferritin Total Bilirubin Direct Bilirubin AST ALT Alkaline Phosphatase Lactate Dehydrogenase C-Reactive Protein Total Protein Albumin Triglycerides Lipase Arterial Blood Glucose 181 H Arterial Blood Ionized Calcium Urine WBC (Auto) Coronavirus (PCR) SARS-CoV-2 IgG Ab Crossmatch 07/12/20 07/12/20 07/12/20 11:33 17:45 23:59 WBC RBC Hgb Hct MCV MCH MCHC RDW Lymph % (Auto) [place] % (Auto) Lymph # (Auto) [place] # (Auto) Baso # (Auto) Seg Neutrophils % Seg Neuts % (Manual) Lymphocytes % (Manual) Nucleated RBC % Seg Neutrophils # Seg Neutrophils # Man Lymphocytes # (Manual) Monocytes # (Manual) Eosinophils # (Manual) PT INR APTT D-Dimer Heparin Anti-Xa Level ABG pH POC ABG pCO2 POC ABG pO2 ABG pO2 ABG HCO3 ABG O2 Saturation ABG Base Excess ABG Hemoglobin ABG Oxyhemoglobin ABG Sodium ABG Potassium ABG Chloride ABG Glucose Oxyhemoglobin Carboxyhemoglobin Sodium Potassium Chloride Carbon Dioxide BUN Creatinine Glucose POC Glucose 151 H 211 H 169 H Lactic Acid Calcium Magnesium Ferritin Total Bilirubin Direct Bilirubin AST ALT Alkaline Phosphatase Lactate Dehydrogenase C-Reactive Protein Total Protein Albumin Triglycerides Lipase Arterial Blood Glucose Arterial Blood Ionized Calcium Urine WBC (Auto) Coronavirus (PCR) SARS-CoV-2 IgG Ab Crossmatch 07/13/20 07/13/20 07/13/20 05:44 08:31 08:31 WBC 21.3 H RBC 2.92 L Hgb 9.7 L Hct 28.7 L MCV 98 H MCH 33 H MCHC RDW 16.8 H Lymph % (Auto) [place] % (Auto) Lymph # (Auto) [place] # (Auto) Baso # (Auto) Seg Neutrophils % Seg Neuts % (Manual) 96.0 H Lymphocytes % (Manual) 2.0 L Nucleated RBC % Seg Neutrophils # Seg Neutrophils # Man 20.4 H Lymphocytes # (Manual) 0.4 L Monocytes # (Manual) Eosinophils # (Manual) PT INR APTT D-Dimer Heparin Anti-Xa Level ABG pH POC ABG pCO2 POC ABG pO2 ABG pO2 ABG HCO3 ABG O2 Saturation ABG Base Excess ABG Hemoglobin ABG Oxyhemoglobin ABG Sodium ABG Potassium ABG Chloride ABG Glucose Oxyhemoglobin Carboxyhemoglobin Sodium Potassium 2.9 L* D Chloride 94.4 L Carbon Dioxide 37 H BUN Creatinine 0.2 L Glucose 166 H POC Glucose 122 H Lactic Acid Calcium Magnesium Ferritin Total Bilirubin Direct Bilirubin AST ALT Alkaline Phosphatase Lactate Dehydrogenase C-Reactive Protein Total Protein Albumin Triglycerides Lipase Arterial Blood Glucose Arterial Blood Ionized Calcium Urine WBC (Auto) Coronavirus (PCR) SARS-CoV-2 IgG Ab Crossmatch 07/13/20 07/13/20 07/13/20 11:54 13:52 17:40 WBC RBC Hgb Hct MCV MCH MCHC RDW Lymph % (Auto) [place] % (Auto) Lymph # (Auto) [place] # (Auto) Baso # (Auto) Seg Neutrophils % Seg Neuts % (Manual) Lymphocytes % (Manual) Nucleated RBC % Seg Neutrophils # Seg Neutrophils # Man Lymphocytes # (Manual) Monocytes # (Manual) Eosinophils # (Manual) PT INR APTT D-Dimer Heparin Anti-Xa Level ABG pH 7.477 H POC ABG pCO2 54.4 H POC ABG pO2 126.8 H ABG pO2 ABG HCO3 ABG O2 Saturation ABG Base Excess ABG Hemoglobin 11.5 L ABG Oxyhemoglobin ABG Sodium ABG Potassium 3.2 L ABG Chloride 92.0 L ABG Glucose 169 H Oxyhemoglobin Carboxyhemoglobin Sodium Potassium Chloride Carbon Dioxide BUN Creatinine Glucose POC Glucose 132 H 128 H Lactic Acid Calcium Magnesium Ferritin Total Bilirubin Direct Bilirubin AST ALT Alkaline Phosphatase Lactate Dehydrogenase C-Reactive Protein Total Protein Albumin Triglycerides Lipase Arterial Blood Glucose 169 H Arterial Blood Ionized Calcium Urine WBC (Auto) Coronavirus (PCR) SARS-CoV-2 IgG Ab Crossmatch 07/14/20 07/14/20 07/15/20 07:49 17:09 05:27 WBC RBC Hgb Hct MCV MCH MCHC RDW Lymph % (Auto) [place] % (Auto) Lymph # (Auto) [place] # (Auto) Baso # (Auto) Seg Neutrophils % Seg Neuts % (Manual) Lymphocytes % (Manual) Nucleated RBC % Seg Neutrophils # Seg Neutrophils # Man Lymphocytes # (Manual) Monocytes # (Manual) Eosinophils # (Manual) PT INR APTT D-Dimer Heparin Anti-Xa Level ABG pH POC ABG pCO2 POC ABG pO2 ABG pO2 ABG HCO3 ABG O2 Saturation ABG Base Excess ABG Hemoglobin ABG Oxyhemoglobin ABG Sodium ABG Potassium ABG Chloride ABG Glucose Oxyhemoglobin Carboxyhemoglobin Sodium Potassium 2.7 L* Chloride 94.0 L Carbon Dioxide 37 H BUN Creatinine 0.3 L Glucose 110 H POC Glucose 152 H 61 L Lactic Acid Calcium Magnesium Ferritin Total Bilirubin Direct Bilirubin AST ALT Alkaline Phosphatase Lactate Dehydrogenase C-Reactive Protein Total Protein Albumin Triglycerides Lipase Arterial Blood Glucose Arterial Blood Ionized Calcium Urine WBC (Auto) Coronavirus (PCR) SARS-CoV-2 IgG Ab Crossmatch 07/15/20 07/15/20 07/15/20 05:31 11:49 17:18 WBC RBC Hgb Hct MCV MCH MCHC RDW Lymph % (Auto) [place] % (Auto) Lymph # (Auto) [place] # (Auto) Baso # (Auto) Seg Neutrophils % Seg Neuts % (Manual) Lymphocytes % (Manual) Nucleated RBC % Seg Neutrophils # Seg Neutrophils # Man Lymphocytes # (Manual) Monocytes # (Manual) Eosinophils # (Manual) PT INR APTT D-Dimer Heparin Anti-Xa Level ABG pH POC ABG pCO2 POC ABG pO2 ABG pO2 ABG HCO3 ABG O2 Saturation ABG Base Excess ABG Hemoglobin ABG Oxyhemoglobin ABG Sodium ABG Potassium ABG Chloride ABG Glucose Oxyhemoglobin Carboxyhemoglobin Sodium Potassium 3.2 L Chloride 91.2 L Carbon Dioxide 33 H BUN Creatinine 0.3 L Glucose 139 H POC Glucose 148 H 196 H Lactic Acid Calcium Magnesium Ferritin Total Bilirubin Direct Bilirubin AST ALT Alkaline Phosphatase Lactate Dehydrogenase C-Reactive Protein Total Protein Albumin Triglycerides Lipase Arterial Blood Glucose Arterial Blood Ionized Calcium Urine WBC (Auto) Coronavirus (PCR) SARS-CoV-2 IgG Ab Crossmatch 07/15/20 07/16/20 07/16/20 23:08 05:18 05:19 WBC 11.3 H RBC 3.10 L Hgb 10.0 L Hct 30.3 L MCV 98 H MCH MCHC RDW 16.3 H Lymph % (Auto) [place] % (Auto) Lymph # (Auto) [place] # (Auto) Baso # (Auto) Seg Neutrophils % Seg Neuts % (Manual) Lymphocytes % (Manual) Nucleated RBC % Seg Neutrophils # Seg Neutrophils # Man Lymphocytes # (Manual) Monocytes # (Manual) Eosinophils # (Manual) PT INR APTT D-Dimer Heparin Anti-Xa Level ABG pH POC ABG pCO2 POC ABG pO2 ABG pO2 ABG HCO3 ABG O2 Saturation ABG Base Excess ABG Hemoglobin ABG Oxyhemoglobin ABG Sodium ABG Potassium ABG Chloride ABG Glucose Oxyhemoglobin Carboxyhemoglobin Sodium Potassium Chloride Carbon Dioxide BUN Creatinine Glucose POC Glucose 131 H 160 H Lactic Acid Calcium Magnesium Ferritin Total Bilirubin Direct Bilirubin AST ALT Alkaline Phosphatase Lactate Dehydrogenase C-Reactive Protein Total Protein Albumin Triglycerides Lipase Arterial Blood Glucose Arterial Blood Ionized Calcium Urine WBC (Auto) Coronavirus (PCR) SARS-CoV-2 IgG Ab Crossmatch 07/16/20 07/16/20 07/16/20 05:19 11:45 17:17 WBC RBC Hgb Hct MCV MCH MCHC RDW Lymph % (Auto) [place] % (Auto) Lymph # (Auto) [place] # (Auto) Baso # (Auto) Seg Neutrophils % Seg Neuts % (Manual) Lymphocytes % (Manual) Nucleated RBC % Seg Neutrophils # Seg Neutrophils # Man Lymphocytes # (Manual) Monocytes # (Manual) Eosinophils # (Manual) PT INR APTT D-Dimer Heparin Anti-Xa Level ABG pH POC ABG pCO2 POC ABG pO2 ABG pO2 ABG HCO3 ABG O2 Saturation ABG Base Excess ABG Hemoglobin ABG Oxyhemoglobin ABG Sodium ABG Potassium ABG Chloride ABG Glucose Oxyhemoglobin Carboxyhemoglobin Sodium 132 L Potassium 3.4 L Chloride 89.9 L Carbon Dioxide 39 H BUN Creatinine 0.3 L Glucose 174 H POC Glucose 169 H 143 H Lactic Acid Calcium Magnesium Ferritin Total Bilirubin Direct Bilirubin AST ALT Alkaline Phosphatase Lactate Dehydrogenase C-Reactive Protein Total Protein Albumin Triglycerides Lipase Arterial Blood Glucose Arterial Blood Ionized Calcium Urine WBC (Auto) Coronavirus (PCR) SARS-CoV-2 IgG Ab Crossmatch 07/16/20 07/17/20 07/17/20 23:54 05:32 11:26 WBC RBC Hgb Hct MCV MCH MCHC RDW Lymph % (Auto) [place] % (Auto) Lymph # (Auto) [place] # (Auto) Baso # (Auto) Seg Neutrophils % Seg Neuts % (Manual) Lymphocytes % (Manual) Nucleated RBC % Seg Neutrophils # Seg Neutrophils # Man Lymphocytes # (Manual) Monocytes # (Manual) Eosinophils # (Manual) PT INR APTT D-Dimer Heparin Anti-Xa Level ABG pH POC ABG pCO2 POC ABG pO2 ABG pO2 ABG HCO3 ABG O2 Saturation ABG Base Excess ABG Hemoglobin ABG Oxyhemoglobin ABG Sodium ABG Potassium ABG Chloride ABG Glucose Oxyhemoglobin Carboxyhemoglobin Sodium Potassium Chloride Carbon Dioxide BUN Creatinine Glucose POC Glucose 147 H 149 H 211 H Lactic Acid Calcium Magnesium Ferritin Total Bilirubin Direct Bilirubin AST ALT Alkaline Phosphatase Lactate Dehydrogenase C-Reactive Protein Total Protein Albumin Triglycerides Lipase Arterial Blood Glucose Arterial Blood Ionized Calcium Urine WBC (Auto) Coronavirus (PCR) SARS-CoV-2 IgG Ab Crossmatch 07/17/20 07/17/20 07/18/20 18:16 23:12 06:15 WBC RBC Hgb Hct MCV MCH MCHC RDW Lymph % (Auto) [place] % (Auto) Lymph # (Auto) [place] # (Auto) Baso # (Auto) Seg Neutrophils % Seg Neuts % (Manual) Lymphocytes % (Manual) Nucleated RBC % Seg Neutrophils # Seg Neutrophils # Man Lymphocytes # (Manual) Monocytes # (Manual) Eosinophils # (Manual) PT INR APTT D-Dimer Heparin Anti-Xa Level ABG pH POC ABG pCO2 POC ABG pO2 ABG pO2 ABG HCO3 ABG O2 Saturation ABG Base Excess ABG Hemoglobin ABG Oxyhemoglobin ABG Sodium ABG Potassium ABG Chloride ABG Glucose Oxyhemoglobin Carboxyhemoglobin Sodium Potassium Chloride Carbon Dioxide BUN Creatinine Glucose POC Glucose 161 H 136 H 108 H Lactic Acid Calcium Magnesium Ferritin Total Bilirubin Direct Bilirubin AST ALT Alkaline Phosphatase Lactate Dehydrogenase C-Reactive Protein Total Protein Albumin Triglycerides Lipase Arterial Blood Glucose Arterial Blood Ionized Calcium Urine WBC (Auto) Coronavirus (PCR) SARS-CoV-2 IgG Ab Crossmatch 07/18/20 07/18/20 07/18/20 08:47 08:47 11:50 WBC 17.7 H RBC 3.29 L Hgb 10.5 L Hct 31.8 L MCV 97 H MCH MCHC RDW 16.9 H Lymph % (Auto) [place] % (Auto) 8.6 H Lymph # (Auto) [place] # (Auto) 1.5 H Baso # (Auto) Seg Neutrophils % 74.6 H Seg Neuts % (Manual) Lymphocytes % (Manual) Nucleated RBC % Seg Neutrophils # 13.2 H Seg Neutrophils # Man Lymphocytes # (Manual) Monocytes # (Manual) Eosinophils # (Manual) PT INR APTT D-Dimer Heparin Anti-Xa Level ABG pH POC ABG pCO2 POC ABG pO2 ABG pO2 ABG HCO3 ABG O2 Saturation ABG Base Excess ABG Hemoglobin ABG Oxyhemoglobin ABG Sodium ABG Potassium ABG Chloride ABG Glucose Oxyhemoglobin Carboxyhemoglobin Sodium Potassium 2.8 L* Chloride 92.6 L Carbon Dioxide 40 H BUN Creatinine 0.3 L Glucose 177 H POC Glucose 178 H Lactic Acid Calcium Magnesium Ferritin Total Bilirubin Direct Bilirubin AST ALT Alkaline Phosphatase Lactate Dehydrogenase C-Reactive Protein Total Protein Albumin Triglycerides Lipase Arterial Blood Glucose Arterial Blood Ionized Calcium Urine WBC (Auto) Coronavirus (PCR) SARS-CoV-2 IgG Ab Crossmatch 07/18/20 07/18/20 07/19/20 17:18 23:33 05:22 WBC RBC Hgb Hct MCV MCH MCHC RDW Lymph % (Auto) [place] % (Auto) Lymph # (Auto) [place] # (Auto) Baso # (Auto) Seg Neutrophils % Seg Neuts % (Manual) Lymphocytes % (Manual) Nucleated RBC % Seg Neutrophils # Seg Neutrophils # Man Lymphocytes # (Manual) Monocytes # (Manual) Eosinophils # (Manual) PT INR APTT D-Dimer Heparin Anti-Xa Level ABG pH POC ABG pCO2 POC ABG pO2 ABG pO2 ABG HCO3 ABG O2 Saturation ABG Base Excess ABG Hemoglobin ABG Oxyhemoglobin ABG Sodium ABG Potassium ABG Chloride ABG Glucose Oxyhemoglobin Carboxyhemoglobin Sodium Potassium Chloride Carbon Dioxide BUN Creatinine Glucose POC Glucose 171 H 162 H 166 H Lactic Acid Calcium Magnesium Ferritin Total Bilirubin Direct Bilirubin AST ALT Alkaline Phosphatase Lactate Dehydrogenase C-Reactive Protein Total Protein Albumin Triglycerides Lipase Arterial Blood Glucose Arterial Blood Ionized Calcium Urine WBC (Auto) Coronavirus (PCR) SARS-CoV-2 IgG Ab Crossmatch 07/19/20 07/19/20 07/19/20 12:00 16:27 23:41 WBC RBC Hgb Hct MCV MCH MCHC RDW Lymph % (Auto) [place] % (Auto) Lymph # (Auto) [place] # (Auto) Baso # (Auto) Seg Neutrophils % Seg Neuts % (Manual) Lymphocytes % (Manual) Nucleated RBC % Seg Neutrophils # Seg Neutrophils # Man Lymphocytes # (Manual) Monocytes # (Manual) Eosinophils # (Manual) PT INR APTT D-Dimer Heparin Anti-Xa Level ABG pH POC ABG pCO2 POC ABG pO2 ABG pO2 ABG HCO3 ABG O2 Saturation ABG Base Excess ABG Hemoglobin ABG Oxyhemoglobin ABG Sodium ABG Potassium ABG Chloride ABG Glucose Oxyhemoglobin Carboxyhemoglobin Sodium Potassium Chloride Carbon Dioxide BUN Creatinine Glucose POC Glucose 201 H 205 H 106 H Lactic Acid Calcium Magnesium Ferritin Total Bilirubin Direct Bilirubin AST ALT Alkaline Phosphatase Lactate Dehydrogenase C-Reactive Protein Total Protein Albumin Triglycerides Lipase Arterial Blood Glucose Arterial Blood Ionized Calcium Urine WBC (Auto) Coronavirus (PCR) SARS-CoV-2 IgG Ab Crossmatch 07/20/20 07/20/20 07/20/20 05:28 11:18 17:30 WBC RBC Hgb Hct MCV MCH MCHC RDW Lymph % (Auto) [place] % (Auto) Lymph # (Auto) [place] # (Auto) Baso # (Auto) Seg Neutrophils % Seg Neuts % (Manual) Lymphocytes % (Manual) Nucleated RBC % Seg Neutrophils # Seg Neutrophils # Man Lymphocytes # (Manual) Monocytes # (Manual) Eosinophils # (Manual) PT INR APTT D-Dimer Heparin Anti-Xa Level ABG pH POC ABG pCO2 POC ABG pO2 ABG pO2 ABG HCO3 ABG O2 Saturation ABG Base Excess ABG Hemoglobin ABG Oxyhemoglobin ABG Sodium ABG Potassium ABG Chloride ABG Glucose Oxyhemoglobin Carboxyhemoglobin Sodium Potassium Chloride Carbon Dioxide BUN Creatinine Glucose POC Glucose 130 H 195 H 141 H Lactic Acid Calcium Magnesium Ferritin Total Bilirubin Direct Bilirubin AST ALT Alkaline Phosphatase Lactate Dehydrogenase C-Reactive Protein Total Protein Albumin Triglycerides Lipase Arterial Blood Glucose Arterial Blood Ionized Calcium Urine WBC (Auto) Coronavirus (PCR) SARS-CoV-2 IgG Ab Crossmatch 07/20/20 07/21/20 07/21/20 23:26 05:03 17:03 WBC RBC Hgb Hct MCV MCH MCHC RDW Lymph % (Auto) [place] % (Auto) Lymph # (Auto) [place] # (Auto) Baso # (Auto) Seg Neutrophils % Seg Neuts % (Manual) Lymphocytes % (Manual) Nucleated RBC % Seg Neutrophils # Seg Neutrophils # Man Lymphocytes # (Manual) Monocytes # (Manual) Eosinophils # (Manual) PT INR APTT D-Dimer Heparin Anti-Xa Level ABG pH POC ABG pCO2 POC ABG pO2 ABG pO2 ABG HCO3 ABG O2 Saturation ABG Base Excess ABG Hemoglobin ABG Oxyhemoglobin ABG Sodium ABG Potassium ABG Chloride ABG Glucose Oxyhemoglobin Carboxyhemoglobin Sodium Potassium Chloride Carbon Dioxide BUN Creatinine Glucose POC Glucose 116 H 142 H 181 H Lactic Acid Calcium Magnesium Ferritin Total Bilirubin Direct Bilirubin AST ALT Alkaline Phosphatase Lactate Dehydrogenase C-Reactive Protein Total Protein Albumin Triglycerides Lipase Arterial Blood Glucose Arterial Blood Ionized Calcium Urine WBC (Auto) Coronavirus (PCR) SARS-CoV-2 IgG Ab Crossmatch 07/21/20 07/22/20 07/22/20 23:51 06:09 11:40 WBC RBC Hgb Hct MCV MCH MCHC RDW Lymph % (Auto) [place] % (Auto) Lymph # (Auto) [place] # (Auto) Baso # (Auto) Seg Neutrophils % Seg Neuts % (Manual) Lymphocytes % (Manual) Nucleated RBC % Seg Neutrophils # Seg Neutrophils # Man Lymphocytes # (Manual) Monocytes # (Manual) Eosinophils # (Manual) PT INR APTT D-Dimer Heparin Anti-Xa Level ABG pH POC ABG pCO2 POC ABG pO2 ABG pO2 ABG HCO3 ABG O2 Saturation ABG Base Excess ABG Hemoglobin ABG Oxyhemoglobin ABG Sodium ABG Potassium ABG Chloride ABG Glucose Oxyhemoglobin Carboxyhemoglobin Sodium Potassium Chloride Carbon Dioxide BUN Creatinine Glucose POC Glucose 127 H 136 H 160 H Lactic Acid Calcium Magnesium Ferritin Total Bilirubin Direct Bilirubin AST ALT Alkaline Phosphatase Lactate Dehydrogenase C-Reactive Protein Total Protein Albumin Triglycerides Lipase Arterial Blood Glucose Arterial Blood Ionized Calcium Urine WBC (Auto) Coronavirus (PCR) SARS-CoV-2 IgG Ab Crossmatch 07/22/20 07/22/20 07/23/20 18:14 23:25 05:58 WBC 12.2 H RBC 3.44 L Hgb 10.9 L Hct 33.9 L MCV 99 H MCH MCHC RDW 16.9 H Lymph % (Auto) [place] % (Auto) 10.0 H Lymph # (Auto) [place] # (Auto) 1.2 H Baso # (Auto) Seg Neutrophils % Seg Neuts % (Manual) Lymphocytes % (Manual) Nucleated RBC % Seg Neutrophils # 8.3 H Seg Neutrophils # Man Lymphocytes # (Manual) Monocytes # (Manual) Eosinophils # (Manual) PT INR APTT D-Dimer Heparin Anti-Xa Level ABG pH POC ABG pCO2 POC ABG pO2 ABG pO2 ABG HCO3 ABG O2 Saturation ABG Base Excess ABG Hemoglobin ABG Oxyhemoglobin ABG Sodium ABG Potassium ABG Chloride ABG Glucose Oxyhemoglobin Carboxyhemoglobin Sodium Potassium Chloride Carbon Dioxide BUN Creatinine Glucose POC Glucose 189 H 164 H Lactic Acid Calcium Magnesium Ferritin Total Bilirubin Direct Bilirubin AST ALT Alkaline Phosphatase Lactate Dehydrogenase C-Reactive Protein Total Protein Albumin Triglycerides Lipase Arterial Blood Glucose Arterial Blood Ionized Calcium Urine WBC (Auto) Coronavirus (PCR) SARS-CoV-2 IgG Ab Crossmatch 07/23/20 07/23/20 07/23/20 05:58 06:02 12:14 WBC RBC Hgb Hct MCV MCH MCHC RDW Lymph % (Auto) [place] % (Auto) Lymph # (Auto) [place] # (Auto) Baso # (Auto) Seg Neutrophils % Seg Neuts % (Manual) Lymphocytes % (Manual) Nucleated RBC % Seg Neutrophils # Seg Neutrophils # Man Lymphocytes # (Manual) Monocytes # (Manual) Eosinophils # (Manual) PT INR APTT D-Dimer Heparin Anti-Xa Level ABG pH POC ABG pCO2 POC ABG pO2 ABG pO2 ABG HCO3 ABG O2 Saturation ABG Base Excess ABG Hemoglobin ABG Oxyhemoglobin ABG Sodium ABG Potassium ABG Chloride ABG Glucose Oxyhemoglobin Carboxyhemoglobin Sodium Potassium 2.9 L* Chloride 94.9 L Carbon Dioxide 33 H D BUN Creatinine 0.4 L Glucose 129 H POC Glucose 111 H 142 H Lactic Acid Calcium Magnesium Ferritin Total Bilirubin Direct Bilirubin AST ALT Alkaline Phosphatase Lactate Dehydrogenase C-Reactive Protein Total Protein Albumin 3.5 L Triglycerides Lipase Arterial Blood Glucose Arterial Blood Ionized Calcium Urine WBC (Auto) Coronavirus (PCR) SARS-CoV-2 IgG Ab Crossmatch 07/23/20 07/23/20 07/24/20 17:20 23:39 05:05 WBC 13.3 H RBC 3.40 L Hgb 10.8 L Hct 33.4 L MCV 98 H MCH MCHC RDW 16.7 H Lymph % (Auto) [place] % (Auto) 10.0 H Lymph # (Auto) [place] # (Auto) 1.3 H Baso # (Auto) Seg Neutrophils % Seg Neuts % (Manual) Lymphocytes % (Manual) Nucleated RBC % Seg Neutrophils # 9.0 H Seg Neutrophils # Man Lymphocytes # (Manual) Monocytes # (Manual) Eosinophils # (Manual) PT INR APTT D-Dimer Heparin Anti-Xa Level ABG pH POC ABG pCO2 POC ABG pO2 ABG pO2 ABG HCO3 ABG O2 Saturation ABG Base Excess ABG Hemoglobin ABG Oxyhemoglobin ABG Sodium ABG Potassium ABG Chloride ABG Glucose Oxyhemoglobin Carboxyhemoglobin Sodium Potassium Chloride Carbon Dioxide BUN Creatinine Glucose POC Glucose 150 H 120 H Lactic Acid Calcium Magnesium Ferritin Total Bilirubin Direct Bilirubin AST ALT Alkaline Phosphatase Lactate Dehydrogenase C-Reactive Protein Total Protein Albumin Triglycerides Lipase Arterial Blood Glucose Arterial Blood Ionized Calcium Urine WBC (Auto) Coronavirus (PCR) SARS-CoV-2 IgG Ab Crossmatch 07/24/20 07/24/20 07/24/20 05:05 05:39 11:30 WBC RBC Hgb Hct MCV MCH MCHC RDW Lymph % (Auto) [place] % (Auto) Lymph # (Auto) [place] # (Auto) Baso # (Auto) Seg Neutrophils % Seg Neuts % (Manual) Lymphocytes % (Manual) Nucleated RBC % Seg Neutrophils # Seg Neutrophils # Man Lymphocytes # (Manual) Monocytes # (Manual) Eosinophils # (Manual) PT INR APTT D-Dimer Heparin Anti-Xa Level ABG pH POC ABG pCO2 POC ABG pO2 ABG pO2 ABG HCO3 ABG O2 Saturation ABG Base Excess ABG Hemoglobin ABG Oxyhemoglobin ABG Sodium ABG Potassium ABG Chloride ABG Glucose Oxyhemoglobin Carboxyhemoglobin Sodium Potassium Chloride 97.4 L Carbon Dioxide BUN Creatinine 0.3 L Glucose 111 H POC Glucose 118 H 160 H Lactic Acid Calcium Magnesium Ferritin Total Bilirubin Direct Bilirubin AST ALT Alkaline Phosphatase Lactate Dehydrogenase C-Reactive Protein Total Protein Albumin Triglycerides Lipase Arterial Blood Glucose Arterial Blood Ionized Calcium Urine WBC (Auto) Coronavirus (PCR) SARS-CoV-2 IgG Ab Crossmatch 07/24/20 07/24/20 07/25/20 16:45 23:43 05:00 WBC RBC Hgb Hct MCV MCH MCHC RDW Lymph % (Auto) [place] % (Auto) Lymph # (Auto) [place] # (Auto) Baso # (Auto) Seg Neutrophils % Seg Neuts % (Manual) Lymphocytes % (Manual) Nucleated RBC % Seg Neutrophils # Seg Neutrophils # Man Lymphocytes # (Manual) Monocytes # (Manual) Eosinophils # (Manual) PT INR APTT D-Dimer Heparin Anti-Xa Level ABG pH POC ABG pCO2 POC ABG pO2 ABG pO2 ABG HCO3 ABG O2 Saturation ABG Base Excess ABG Hemoglobin ABG Oxyhemoglobin ABG Sodium ABG Potassium ABG Chloride ABG Glucose Oxyhemoglobin Carboxyhemoglobin Sodium Potassium Chloride Carbon Dioxide BUN Creatinine Glucose POC Glucose 181 H 122 H 114 H Lactic Acid Calcium Magnesium Ferritin Total Bilirubin Direct Bilirubin AST ALT Alkaline Phosphatase Lactate Dehydrogenase C-Reactive Protein Total Protein Albumin Triglycerides Lipase Arterial Blood Glucose Arterial Blood Ionized Calcium Urine WBC (Auto) Coronavirus (PCR) SARS-CoV-2 IgG Ab Crossmatch 07/25/20 07/25/20 07/25/20 11:44 16:44 23:41 WBC RBC Hgb Hct MCV MCH MCHC RDW Lymph % (Auto) [place] % (Auto) Lymph # (Auto) [place] # (Auto) Baso # (Auto) Seg Neutrophils % Seg Neuts % (Manual) Lymphocytes % (Manual) Nucleated RBC % Seg Neutrophils # Seg Neutrophils # Man Lymphocytes # (Manual) Monocytes # (Manual) Eosinophils # (Manual) PT INR APTT D-Dimer Heparin Anti-Xa Level ABG pH POC ABG pCO2 POC ABG pO2 ABG pO2 ABG HCO3 ABG O2 Saturation ABG Base Excess ABG Hemoglobin ABG Oxyhemoglobin ABG Sodium ABG Potassium ABG Chloride ABG Glucose Oxyhemoglobin Carboxyhemoglobin Sodium Potassium Chloride Carbon Dioxide BUN Creatinine Glucose POC Glucose 298 H 166 H 133 H Lactic Acid Calcium Magnesium Ferritin Total Bilirubin Direct Bilirubin AST ALT Alkaline Phosphatase Lactate Dehydrogenase C-Reactive Protein Total Protein Albumin Triglycerides Lipase Arterial Blood Glucose Arterial Blood Ionized Calcium Urine WBC (Auto) Coronavirus (PCR) SARS-CoV-2 IgG Ab Crossmatch 07/26/20 07/26/20 07/26/20 05:17 11:17 18:07 WBC RBC Hgb Hct MCV MCH MCHC RDW Lymph % (Auto) [place] % (Auto) Lymph # (Auto) [place] # (Auto) Baso # (Auto) Seg Neutrophils % Seg Neuts % (Manual) Lymphocytes % (Manual) Nucleated RBC % Seg Neutrophils # Seg Neutrophils # Man Lymphocytes # (Manual) Monocytes # (Manual) Eosinophils # (Manual) PT INR APTT D-Dimer Heparin Anti-Xa Level ABG pH POC ABG pCO2 POC ABG pO2 ABG pO2 ABG HCO3 ABG O2 Saturation ABG Base Excess ABG Hemoglobin ABG Oxyhemoglobin ABG Sodium ABG Potassium ABG Chloride ABG Glucose Oxyhemoglobin Carboxyhemoglobin Sodium Potassium Chloride Carbon Dioxide BUN Creatinine Glucose POC Glucose 113 H 157 H 154 H Lactic Acid Calcium Magnesium Ferritin Total Bilirubin Direct Bilirubin AST ALT Alkaline Phosphatase Lactate Dehydrogenase C-Reactive Protein Total Protein Albumin Triglycerides Lipase Arterial Blood Glucose Arterial Blood Ionized Calcium Urine WBC (Auto) Coronavirus (PCR) SARS-CoV-2 IgG Ab Crossmatch 07/26/20 07/27/20 07/27/20 23:44 08:26 08:26 WBC RBC 3.63 L Hgb Hct MCV 98 H MCH MCHC RDW 17.5 H Lymph % (Auto) [place] % (Auto) 10.6 H Lymph # (Auto) [place] # (Auto) 1.1 H Baso # (Auto) Seg Neutrophils % Seg Neuts % (Manual) Lymphocytes % (Manual) Nucleated RBC % Seg Neutrophils # Seg Neutrophils # Man Lymphocytes # (Manual) Monocytes # (Manual) Eosinophils # (Manual) PT INR APTT D-Dimer Heparin Anti-Xa Level ABG pH POC ABG pCO2 POC ABG pO2 ABG pO2 ABG HCO3 ABG O2 Saturation ABG Base Excess ABG Hemoglobin ABG Oxyhemoglobin ABG Sodium ABG Potassium ABG Chloride ABG Glucose Oxyhemoglobin Carboxyhemoglobin Sodium Potassium Chloride 97.9 L Carbon Dioxide 37 H D BUN Creatinine 0.4 L Glucose 115 H POC Glucose 148 H Lactic Acid Calcium Magnesium Ferritin Total Bilirubin Direct Bilirubin AST ALT Alkaline Phosphatase Lactate Dehydrogenase C-Reactive Protein Total Protein Albumin Triglycerides Lipase Arterial Blood Glucose Arterial Blood Ionized Calcium Urine WBC (Auto) Coronavirus (PCR) SARS-CoV-2 IgG Ab Crossmatch 0107/27/20 07/27/20 11:41 16:50 23:22 WBC RBC Hgb Hct MCV MCH MCHC RDW Lymph % (Auto) [place] % (Auto) Lymph # (Auto) [place] # (Auto) Baso # (Auto) Seg Neutrophils % Seg Neuts % (Manual) Lymphocytes % (Manual) Nucleated RBC % Seg Neutrophils # Seg Neutrophils # Man Lymphocytes # (Manual) Monocytes # (Manual) Eosinophils # (Manual) PT INR APTT D-Dimer Heparin Anti-Xa Level ABG pH POC ABG pCO2 POC ABG pO2 ABG pO2 ABG HCO3 ABG O2 Saturation ABG Base Excess ABG Hemoglobin ABG Oxyhemoglobin ABG Sodium ABG Potassium ABG Chloride ABG Glucose Oxyhemoglobin Carboxyhemoglobin Sodium Potassium Chloride Carbon Dioxide BUN Creatinine Glucose POC Glucose 169 H 132 H 120 H Lactic Acid Calcium Magnesium Ferritin Total Bilirubin Direct Bilirubin AST ALT Alkaline Phosphatase Lactate Dehydrogenase C-Reactive Protein Total Protein Albumin Triglycerides Lipase Arterial Blood Glucose Arterial Blood Ionized Calcium Urine WBC (Auto) Coronavirus (PCR) SARS-CoV-2 IgG Ab Crossmatch 07/28/20 07/29/20 07/29/20 17:39 14:14 16:32 WBC RBC Hgb Hct MCV MCH MCHC RDW Lymph % (Auto) [place] % (Auto) Lymph # (Auto) [place] # (Auto) Baso # (Auto) Seg Neutrophils % Seg Neuts % (Manual) Lymphocytes % (Manual) Nucleated RBC % Seg Neutrophils # Seg Neutrophils # Man Lymphocytes # (Manual) Monocytes # (Manual) Eosinophils # (Manual) PT INR APTT D-Dimer Heparin Anti-Xa Level ABG pH POC ABG pCO2 POC ABG pO2 ABG pO2 ABG HCO3 ABG O2 Saturation ABG Base Excess ABG Hemoglobin ABG Oxyhemoglobin ABG Sodium ABG Potassium ABG Chloride ABG Glucose Oxyhemoglobin Carboxyhemoglobin Sodium Potassium Chloride Carbon Dioxide BUN Creatinine Glucose POC Glucose 187 H 188 H 193 H Lactic Acid Calcium Magnesium Ferritin Total Bilirubin Direct Bilirubin AST ALT Alkaline Phosphatase Lactate Dehydrogenase C-Reactive Protein Total Protein Albumin Triglycerides Lipase Arterial Blood Glucose Arterial Blood Ionized Calcium Urine WBC (Auto) Coronavirus (PCR) SARS-CoV-2 IgG Ab Crossmatch 07/30/20 07/30/20 07/30/20 12:03 15:59 23:20 WBC RBC Hgb Hct MCV MCH MCHC RDW Lymph % (Auto) [place] % (Auto) Lymph # (Auto) [place] # (Auto) Baso # (Auto) Seg Neutrophils % Seg Neuts % (Manual) Lymphocytes % (Manual) Nucleated RBC % Seg Neutrophils # Seg Neutrophils # Man Lymphocytes # (Manual) Monocytes # (Manual) Eosinophils # (Manual) PT INR APTT D-Dimer Heparin Anti-Xa Level ABG pH POC ABG pCO2 POC ABG pO2 ABG pO2 ABG HCO3 ABG O2 Saturation ABG Base Excess ABG Hemoglobin ABG Oxyhemoglobin ABG Sodium ABG Potassium ABG Chloride ABG Glucose Oxyhemoglobin Carboxyhemoglobin Sodium Potassium Chloride Carbon Dioxide BUN Creatinine Glucose POC Glucose 133 H 191 H 144 H Lactic Acid Calcium Magnesium Ferritin Total Bilirubin Direct Bilirubin AST ALT Alkaline Phosphatase Lactate Dehydrogenase C-Reactive Protein Total Protein Albumin Triglycerides Lipase Arterial Blood Glucose Arterial Blood Ionized Calcium Urine WBC (Auto) Coronavirus (PCR) SARS-CoV-2 IgG Ab Crossmatch 07/31/20 07/31/20 07/31/20 05:28 12:01 16:43 WBC RBC Hgb Hct MCV MCH MCHC RDW Lymph % (Auto) [place] % (Auto) Lymph # (Auto) [place] # (Auto) Baso # (Auto) Seg Neutrophils % Seg Neuts % (Manual) Lymphocytes % (Manual) Nucleated RBC % Seg Neutrophils # Seg Neutrophils # Man Lymphocytes # (Manual) Monocytes # (Manual) Eosinophils # (Manual) PT INR APTT D-Dimer Heparin Anti-Xa Level ABG pH POC ABG pCO2 POC ABG pO2 ABG pO2 ABG HCO3 ABG O2 Saturation ABG Base Excess ABG Hemoglobin ABG Oxyhemoglobin ABG Sodium ABG Potassium ABG Chloride ABG Glucose Oxyhemoglobin Carboxyhemoglobin Sodium Potassium Chloride Carbon Dioxide BUN Creatinine Glucose POC Glucose 128 H 137 H 170 H Lactic Acid Calcium Magnesium Ferritin Total Bilirubin Direct Bilirubin AST ALT Alkaline Phosphatase Lactate Dehydrogenase C-Reactive Protein Total Protein Albumin Triglycerides Lipase Arterial Blood Glucose Arterial Blood Ionized Calcium Urine WBC (Auto) Coronavirus (PCR) SARS-CoV-2 IgG Ab Crossmatch 07/31/20 08/01/20 08/01/20 20:28 07:44 11:02 WBC RBC Hgb Hct MCV MCH MCHC RDW Lymph % (Auto) [place] % (Auto) Lymph # (Auto) [place] # (Auto) Baso # (Auto) Seg Neutrophils % Seg Neuts % (Manual) Lymphocytes % (Manual) Nucleated RBC % Seg Neutrophils # Seg Neutrophils # Man Lymphocytes # (Manual) Monocytes # (Manual) Eosinophils # (Manual) PT INR APTT D-Dimer Heparin Anti-Xa Level ABG pH POC ABG pCO2 POC ABG pO2 ABG pO2 ABG HCO3 ABG O2 Saturation ABG Base Excess ABG Hemoglobin ABG Oxyhemoglobin ABG Sodium ABG Potassium ABG Chloride ABG Glucose Oxyhemoglobin Carboxyhemoglobin Sodium Potassium Chloride Carbon Dioxide BUN Creatinine Glucose POC Glucose 142 H 111 H 137 H Lactic Acid Calcium Magnesium Ferritin Total Bilirubin Direct Bilirubin AST ALT Alkaline Phosphatase Lactate Dehydrogenase C-Reactive Protein Total Protein Albumin Triglycerides Lipase Arterial Blood Glucose Arterial Blood Ionized Calcium Urine WBC (Auto) Coronavirus (PCR) SARS-CoV-2 IgG Ab Crossmatch 08/01/20 08/01/20 08/02/20 15:46 20:46 05:55 WBC 12.4 H RBC Hgb Hct MCV 99 H MCH MCHC RDW 16.9 H Lymph % (Auto) [place] % (Auto) 9.7 H Lymph # (Auto) [place] # (Auto) 1.2 H Baso # (Auto) Seg Neutrophils % Seg Neuts % (Manual) Lymphocytes % (Manual) Nucleated RBC % Seg Neutrophils # 8.5 H Seg Neutrophils # Man Lymphocytes # (Manual) Monocytes # (Manual) Eosinophils # (Manual) PT INR APTT D-Dimer Heparin Anti-Xa Level ABG pH POC ABG pCO2 POC ABG pO2 ABG pO2 ABG HCO3 ABG O2 Saturation ABG Base Excess ABG Hemoglobin ABG Oxyhemoglobin ABG Sodium ABG Potassium ABG Chloride ABG Glucose Oxyhemoglobin Carboxyhemoglobin Sodium Potassium Chloride Carbon Dioxide BUN Creatinine Glucose POC Glucose 131 H 123 H Lactic Acid Calcium Magnesium Ferritin Total Bilirubin Direct Bilirubin AST ALT Alkaline Phosphatase Lactate Dehydrogenase C-Reactive Protein Total Protein Albumin Triglycerides Lipase Arterial Blood Glucose Arterial Blood Ionized Calcium Urine WBC (Auto) Coronavirus (PCR) SARS-CoV-2 IgG Ab Crossmatch 08/02/20 08/02/20 08/02/20 05:55 08:19 12:24 WBC RBC Hgb Hct MCV MCH MCHC RDW Lymph % (Auto) [place] % (Auto) Lymph # (Auto) [place] # (Auto) Baso # (Auto) Seg Neutrophils % Seg Neuts % (Manual) Lymphocytes % (Manual) Nucleated RBC % Seg Neutrophils # Seg Neutrophils # Man Lymphocytes # (Manual) Monocytes # (Manual) Eosinophils # (Manual) PT INR APTT D-Dimer Heparin Anti-Xa Level ABG pH POC ABG pCO2 POC ABG pO2 ABG pO2 ABG HCO3 ABG O2 Saturation ABG Base Excess ABG Hemoglobin ABG Oxyhemoglobin ABG Sodium ABG Potassium ABG Chloride ABG Glucose Oxyhemoglobin Carboxyhemoglobin Sodium Potassium 2.9 L* Chloride 96.5 L Carbon Dioxide 39 H BUN Creatinine 0.3 L Glucose 105 H POC Glucose 152 H 144 H Lactic Acid Calcium Magnesium Ferritin Total Bilirubin Direct Bilirubin AST ALT 118 H Alkaline Phosphatase Lactate Dehydrogenase C-Reactive Protein Total Protein Albumin 3.3 L Triglycerides Lipase Arterial Blood Glucose Arterial Blood Ionized Calcium Urine WBC (Auto) Coronavirus (PCR) SARS-CoV-2 IgG Ab Crossmatch 08/02/20 08/02/20 08/02/20 13:55 16:23 17:00 WBC RBC Hgb Hct MCV MCH MCHC RDW Lymph % (Auto) [place] % (Auto) Lymph # (Auto) [place] # (Auto) Baso # (Auto) Seg Neutrophils % Seg Neuts % (Manual) Lymphocytes % (Manual) Nucleated RBC % Seg Neutrophils # Seg Neutrophils # Man Lymphocytes # (Manual) Monocytes # (Manual) Eosinophils # (Manual) PT INR APTT D-Dimer Heparin Anti-Xa Level ABG pH POC ABG pCO2 POC ABG pO2 ABG pO2 ABG HCO3 ABG O2 Saturation ABG Base Excess ABG Hemoglobin ABG Oxyhemoglobin ABG Sodium ABG Potassium ABG Chloride ABG Glucose Oxyhemoglobin Carboxyhemoglobin Sodium Potassium 3.0 L Chloride Carbon Dioxide BUN Creatinine Glucose POC Glucose 142 H 193 H Lactic Acid Calcium Magnesium Ferritin Total Bilirubin Direct Bilirubin AST ALT Alkaline Phosphatase Lactate Dehydrogenase C-Reactive Protein Total Protein Albumin Triglycerides Lipase Arterial Blood Glucose Arterial Blood Ionized Calcium Urine WBC (Auto) Coronavirus (PCR) SARS-CoV-2 IgG Ab Crossmatch 08/02/20 08/03/20 08/03/20 21:21 05:18 08:05 WBC RBC Hgb Hct MCV MCH MCHC RDW Lymph % (Auto) [place] % (Auto) Lymph # (Auto) [place] # (Auto) Baso # (Auto) Seg Neutrophils % Seg Neuts % (Manual) Lymphocytes % (Manual) Nucleated RBC % Seg Neutrophils # Seg Neutrophils # Man Lymphocytes # (Manual) Monocytes # (Manual) Eosinophils # (Manual) PT INR APTT D-Dimer Heparin Anti-Xa Level ABG pH POC ABG pCO2 POC ABG pO2 ABG pO2 ABG HCO3 ABG O2 Saturation ABG Base Excess ABG Hemoglobin ABG Oxyhemoglobin ABG Sodium ABG Potassium ABG Chloride ABG Glucose Oxyhemoglobin Carboxyhemoglobin Sodium Potassium Chloride Carbon Dioxide 32 H D BUN Creatinine 0.4 L Glucose POC Glucose 161 H 107 H Lactic Acid Calcium Magnesium Ferritin Total Bilirubin Direct Bilirubin AST ALT Alkaline Phosphatase Lactate Dehydrogenase C-Reactive Protein Total Protein Albumin Triglycerides Lipase Arterial Blood Glucose Arterial Blood Ionized Calcium Urine WBC (Auto) Coronavirus (PCR) SARS-CoV-2 IgG Ab Crossmatch 08/03/20 08/03/20 08/04/20 12:03 20:20 07:46 WBC RBC Hgb Hct MCV MCH MCHC RDW Lymph % (Auto) [place] % (Auto) Lymph # (Auto) [place] # (Auto) Baso # (Auto) Seg Neutrophils % Seg Neuts % (Manual) Lymphocytes % (Manual) Nucleated RBC % Seg Neutrophils # Seg Neutrophils # Man Lymphocytes # (Manual) Monocytes # (Manual) Eosinophils # (Manual) PT INR APTT D-Dimer Heparin Anti-Xa Level ABG pH POC ABG pCO2 POC ABG pO2 ABG pO2 ABG HCO3 ABG O2 Saturation ABG Base Excess ABG Hemoglobin ABG Oxyhemoglobin ABG Sodium ABG Potassium ABG Chloride ABG Glucose Oxyhemoglobin Carboxyhemoglobin Sodium Potassium Chloride Carbon Dioxide BUN Creatinine Glucose POC Glucose 135 H 167 H 109 H Lactic Acid Calcium Magnesium Ferritin Total Bilirubin Direct Bilirubin AST ALT Alkaline Phosphatase Lactate Dehydrogenase C-Reactive Protein Total Protein Albumin Triglycerides Lipase Arterial Blood Glucose Arterial Blood Ionized Calcium Urine WBC (Auto) Coronavirus (PCR) SARS-CoV-2 IgG Ab Crossmatch 08/04/20 08/04/20 08/04/20 11:54 16:48 20:39 WBC RBC Hgb Hct MCV MCH MCHC RDW Lymph % (Auto) [place] % (Auto) Lymph # (Auto) [place] # (Auto) Baso # (Auto) Seg Neutrophils % Seg Neuts % (Manual) Lymphocytes % (Manual) Nucleated RBC % Seg Neutrophils # Seg Neutrophils # Man Lymphocytes # (Manual) Monocytes # (Manual) Eosinophils # (Manual) PT INR APTT D-Dimer Heparin Anti-Xa Level ABG pH POC ABG pCO2 POC ABG pO2 ABG pO2 ABG HCO3 ABG O2 Saturation ABG Base Excess ABG Hemoglobin ABG Oxyhemoglobin ABG Sodium ABG Potassium ABG Chloride ABG Glucose Oxyhemoglobin Carboxyhemoglobin Sodium Potassium Chloride Carbon Dioxide BUN Creatinine Glucose POC Glucose 133 H 150 H 139 H Lactic Acid Calcium Magnesium Ferritin Total Bilirubin Direct Bilirubin AST ALT Alkaline Phosphatase Lactate Dehydrogenase C-Reactive Protein Total Protein Albumin Triglycerides Lipase Arterial Blood Glucose Arterial Blood Ionized Calcium Urine WBC (Auto) Coronavirus (PCR) SARS-CoV-2 IgG Ab Crossmatch 08/05/20 08/05/20 07:45 11:36 WBC RBC Hgb Hct MCV MCH MCHC RDW Lymph % (Auto) [place] % (Auto) Lymph # (Auto) [place] # (Auto) Baso # (Auto) Seg Neutrophils % Seg Neuts % (Manual) Lymphocytes % (Manual) Nucleated RBC % Seg Neutrophils # Seg Neutrophils # Man Lymphocytes # (Manual) Monocytes # (Manual) Eosinophils # (Manual) PT INR APTT D-Dimer Heparin Anti-Xa Level ABG pH POC ABG pCO2 POC ABG pO2 ABG pO2 ABG HCO3 ABG O2 Saturation ABG Base Excess ABG Hemoglobin ABG Oxyhemoglobin ABG Sodium ABG Potassium ABG Chloride ABG Glucose Oxyhemoglobin Carboxyhemoglobin Sodium Potassium Chloride Carbon Dioxide BUN Creatinine Glucose POC Glucose 115 H 112 H Lactic Acid Calcium Magnesium Ferritin Total Bilirubin Direct Bilirubin AST ALT Alkaline Phosphatase Lactate Dehydrogenase C-Reactive Protein Total Protein Albumin Triglycerides Lipase Arterial Blood Glucose Arterial Blood Ionized Calcium Urine WBC (Auto) Coronavirus (PCR) SARS-CoV-2 IgG Ab Crossmatch Allied health notes reviewed: nursing
--- NOTE | 2020-08-05 16:19 | Progress Note ---
Assessment and Plan Assessment and plan: Positive COVID-19 test; 05/10/2020 Negative COVID-19 test; 06/30/2020 --Acute hypoxemic respiratory failure; on 8 L oxygen Oxygen titrated to 3 to 4 L, Pulmonary following Inpatient rehab has accepted for rehab therapy Pending COVID-19 test --Pneumothorax status post right chest tube Chest tube removed 07/23/2020 Post removal chest x-ray no pneumothorax Patient is requiring 3 to 4 L nasal cannula --Severe hypokalemia; resolved --Sinus tachycardia: Significantly improved Supportive care --Severe COVID-19 bilateral pneumonia Coronavirus protocol: Completed steroids and remdesivir therapy, isolation precautions, Received management per COVID-19 protocol Repeat ivory PCR test negative on 06/30/2020 Isolation discontinued --Elevated D-dimers; Patient had CTA chest ; negative for PE, patient already had lower extremity venous Doppler which was negative for DVT We will discontinue empiric therapeutic Lovenox, and change to DVT prophylaxis dose 40 mg subcu daily --Pseudomonas bacteremia; ID following, completed cefepime Monitor off antibiotics --Severe sepsis/septic shock, monitor off pressors Completed cefepime, monitor off antibiotics -- Acute kidney injury (SEN) , likely vasomotor nephropathy Resolved, avoid nephrotoxins --Acute on chronic anemia Guaiac test positive, GI evaluated the patient Patient H&H is normal range now Hb 11.8 -- Elevated liver function tests; resolved LFTs within normal limits --Colonic distention GI evaluated colonic distention resolved recommend stool softeners -- DVT prophylaxis On therapeutic Lovenox Chest tube removed Patient on 10 L nasal cannula oxygen, wean as tolerated Elevated D-dimers, on empiric therapeutic Lovenox CTA chest negative for PE,LE DVT negative, therapeutic Lovenox DC'd Changed to prophylactic Lovenox Discharge planning per case management reports that IRU is evaluating the patient for placement Patient is medically stable for discharge awaiting placement 07/23/2020; patient remains on high flow oxygen, wean oxygen as tolerated, severe hypokalemia Replenish per protocol monitor levels 07/24/2020; patient had chest tube removal yesterday 07/23/2019 and, post removal chest x-ray no pneumothorax no acute abnormalities Patient feels slightly better continues to require high flow oxygen Wean as tolerated, physical and occupational therapy, DC planning 07/26/2020; patient on 3 L nasal cannula oxygen, patient feels better 07/27/2020; patient was saturating well on 3 L of nasal cannula oxygen, however today patient is on high flow oxygen 15 L Complains of some congestion, wean oxygen levels to 3-5 as tolerated Discharge planning LTAC has refused patient,Possible home with home health versus placement when medically stable 07/28/2020; continue to wean oxygen, patient is on 10 L, awaiting placement 07/29/2020; continues to be on 10 L nasal cannula oxygen, wean as tolerated Patient is on empiric therapeutic dose Lovenox, due to elevated D-dimers Patient is stable for CTA chest today, follow the report and adjust Lovenox as needed DC planning per case management, with pending placement 07/30/2020; patient feels slightly better, oxygen reduced to 8 L of nasal cannula Will check PT OT, pending placement 07/31/2020 Patient on 8 L of nasal cannula oxygen 08/03/2020; patient's oxygen requirement has come down to 3-4 and half liters nasal cannula Will try to wean oxygen as tolerated, respiratory therapist assisting to reach the goal Possible discharge home in 1 to 2 days if stable Plan of care reviewed with the patient and his nurse 08/04/2020; patient is requiring 3 to 4 L nasal cannula oxygen, case management to set up home oxygen Patient is hemodynamically and clinically stable for discharge, pending placement [facility] And of care reviewed with the patient and his nurse as well as the case management 07/05/2021 ; COVID-19 test requested , patient is hemodynamically and clinically stable for discharge Patient is requiring 4 L of nasal cannula oxygen . medically stable for discharge History Interval history: I seen and examined the patient at the bedside Patient's chart and medications reviewed Continues to require 4 L of nasal cannula oxygen Patient is evaluating IRU placement Inpatient rehab unit requested COVID-19 test Patient has no new complaints Vital signs noted Hospitalist Physical - Constitutional Vitals: Temp Pulse Resp BP Pulse Ox 99.2 F 117 H 18 108/71 91 08/05/20 07:47 08/05/20 07:47 08/05/20 07:47 08/05/20 07:47 08/05/20 08:16 General appearance: Present: no acute distress, well-nourished - EENT Eyes: Present: PERRL, EOM intact - Neck Neck: Present: supple, normal ROM - Respiratory Respiratory effort: normal Respiratory: bilateral: diminished, negative: rales, rhonchi, wheezing - Cardiovascular Rhythm: regular Heart Sounds: Present: S1 & S2 - Extremities Extremities: no ischemia, No edema - Abdominal General gastrointestinal: soft, non-tender, non-distended, normal bowel sounds - Integumentary Integumentary: Present: clear, warm - Psychiatric Psychiatric: appropriate mood/affect, cooperative - Neurologic Neurologic: CNII-XII intact, moves all extremities HEART Score - HEART Score Troponin: Troponin T 0.015 ng/mL (0.00-0.029) 07/07/20 10:00 Results - Labs CBC & Chem 7: 08/02/20 05:55 08/03/20 05:18 Labs: Laboratory Last Values WBC 12.4 K/mm3 (4.5-11.0) H 08/02/20 05:55 RBC 3.85 M/mm3 (3.65-5.03) 08/02/20 05:55 Hgb 12.3 gm/dl (11.8-15.2) 08/02/20 05:55 Hct 37.9 % (35.5-45.6) 08/02/20 05:55 MCV 99 fl (84-94) H 08/02/20 05:55 MCH 32 pg (28-32) 08/02/20 05:55 MCHC 33 % (32-34) 08/02/20 05:55 RDW 16.9 % (13.2-15.2) H 08/02/20 05:55 Plt Count 267 K/mm3 (140-440) 08/02/20 05:55 Lymph % (Auto) 18.3 % (13.4-35.0) 08/02/20 05:55 [place] % (Auto) 9.7 % (0.0-7.3) H 08/02/20 05:55 Eos % (Auto) 3.3 % (0.0-4.3) 08/02/20 05:55 Baso % (Auto) 0.4 % (0.0-1.8) 08/02/20 05:55 Lymph # (Auto) 2.3 K/mm3 (1.2-5.4) 08/02/20 05:55 [place] # (Auto) 1.2 K/mm3 (0.0-0.8) H 08/02/20 05:55 Eos # (Auto) 0.4 K/mm3 (0.0-0.4) 08/02/20 05:55 Baso # (Auto) 0.1 K/mm3 (0.0-0.1) 08/02/20 05:55 Add Manual Diff Complete 07/13/20 08:31 Total Counted 100 07/13/20 08:31 Seg Neutrophils % 68.3 % (40.0-70.0) 08/02/20 05:55 Seg Neuts % (Manual) 96.0 % (40.0-70.0) H 07/13/20 08:31 Band Neutrophils % 0 % 07/13/20 08:31 Lymphocytes % (Manual) 2.0 % (13.4-35.0) L 07/13/20 08:31 Reactive Lymphs % (Man) 0 % 07/13/20 08:31 Monocytes % (Manual) 2.0 % (0.0-7.3) 07/13/20 08:31 Eosinophils % (Manual) 0 % (0.0-4.3) 07/13/20 08:31 Basophils % (Manual) 0 % (0.0-1.8) 07/13/20 08:31 Metamyelocytes % 0 % 07/13/20 08:31 Myelocytes % 0 % 07/13/20 08:31 Promyelocytes % 0 % 07/13/20 08:31 Blast Cells % 0 % 07/13/20 08:31 Nucleated RBC % Not Reportable 07/13/20 08:31 Seg Neutrophils # 8.5 K/mm3 (1.8-7.7) H 08/02/20 05:55 Seg Neutrophils # Man 20.4 K/mm3 (1.8-7.7) H 07/13/20 08:31 Band Neutrophils # 0.0 K/mm3 07/13/20 08:31 Lymphocytes # (Manual) 0.4 K/mm3 (1.2-5.4) L 07/13/20 08:31 Abs React Lymphs (Man) 0.0 K/mm3 07/13/20 08:31 Monocytes # (Manual) 0.4 K/mm3 (0.0-0.8) 07/13/20 08:31 Eosinophils # (Manual) 0.0 K/mm3 (0.0-0.4) 07/13/20 08:31 Basophils # (Manual) 0.0 K/mm3 (0.0-0.1) 07/13/20 08:31 Metamyelocytes # 0.0 K/mm3 07/13/20 08:31 Myelocytes # 0.0 K/mm3 07/13/20 08:31 Promyelocytes # 0.0 K/mm3 07/13/20 08:31 Blast Cells # 0.0 K/mm3 07/13/20 08:31 WBC Morphology Not Reportable 07/13/20 08:31 Hypersegmented Neuts Not Reportable 07/13/20 08:31 Hyposegmented Neuts Not Reportable 07/13/20 08:31 Hypogranular Neuts Not Reportable 07/13/20 08:31 Smudge Cells Not Reportable 07/13/20 08:31 Toxic Granulation Not Reportable 07/13/20 08:31 Toxic Vacuolation Not Reportable 07/13/20 08:31 Dohle Bodies Not Reportable 07/13/20 08:31 Pelger-Huet Anomaly Not Reportable 07/13/20 08:31 Jason Rods Not Reportable 07/13/20 08:31 Platelet Estimate Consistent w auto 07/13/20 08:31 Clumped Platelets Not Reportable 07/13/20 08:31 Plt Clumps, EDTA Not Reportable 07/13/20 08:31 Large Platelets Not Reportable 07/13/20 08:31 Giant Platelets Not Reportable 07/13/20 08:31 Platelet Satelliting Not Reportable 07/13/20 08:31 Plt Morphology Comment Not Reportable 07/13/20 08:31 RBC Morphology Not Reportable 07/13/20 08:31 Dimorphic RBCs Not Reportable 07/13/20 08:31 Polychromasia Not Reportable 07/13/20 08:31 Hypochromasia Not Reportable 07/13/20 08:31 Poikilocytosis Not Reportable 07/13/20 08:31 Anisocytosis Not Reportable 07/13/20 08:31 Microcytosis Not Reportable 07/13/20 08:31 Macrocytosis Not Reportable 07/13/20 08:31 Spherocytes Not Reportable 07/13/20 08:31 Pappenheimer Bodies Not Reportable 07/13/20 08:31 Sickle Cells Not Reportable 07/13/20 08:31 Target Cells Not Reportable 07/13/20 08:31 Tear Drop Cells Not Reportable 07/13/20 08:31 Ovalocytes Not Reportable 07/13/20 08:31 Stomatocytes Few 07/13/20 08:31 Helmet Cells Not Reportable 07/13/20 08:31 [place] Bodies Not Reportable 07/13/20 08:31 [place] Rings Not Reportable 07/13/20 08:31 [place]abella Cells Not Reportable 07/13/20 08:31 Bite Cells Not Reportable 07/13/20 08:31 Crenated Cell Not Reportable 07/13/20 08:31 Elliptocytes Not Reportable 07/13/20 08:31 Acanthocytes (Spur) Not Reportable 07/13/20 08:31 Rouleaux Not Reportable 07/13/20 08:31 Hemoglobin C Crystals Not Reportable 07/13/20 08:31 Schistocytes Not Reportable 07/13/20 08:31 Malaria parasites Not Reportable 07/13/20 08:31 Josue Bodies Not Reportable 07/13/20 08:31 Hem Pathologist Commnt No 07/13/20 08:31 PT 11.8 Sec. (12.2-14.9) L 06/22/20 14:29 INR 0.88 (0.87-1.13) 06/22/20 14:29 APTT 23.5 Sec. (24.2-36.6) L 06/22/20 14:29 D-Dimer 1887.82 ng/mlDDU (0-234) H 05/20/20 08:16 Heparin Anti-Xa Level 0.37 U.I./ml (0.3-0.7) 07/02/20 16:08 ABG pH 7.477 (7.320-7.450) H 07/13/20 13:52 POC ABG pCO2 54.4 mmHg (32.0-48.0) H 07/13/20 13:52 ABG pCO2 53.1 mm Hg 07/08/20 Unknown POC ABG pO2 126.8 mmHg (83-108) H 07/13/20 13:52 ABG pO2 75.3 mm Hg (80.0-90.0) L 07/08/20 Unknown POC ABG HCO3 39.3 07/13/20 13:52 ABG HCO3 34.3 mmol/L (20.0-26.0) H 07/08/20 Unknown ABG O2 Saturation 96.5 % (95.0-99.0) 07/08/20 Unknown ABG O2 Content 13.5 (0.0-44) 07/08/20 Unknown POC ABG Base Excess 13.8 07/13/20 13:52 ABG Base Excess 8.7 mmol/L (-2.0-3.0) H 07/08/20 Unknown ABG Hemoglobin 11.5 (12.0-17.5) L 07/13/20 13:52 ABG Oxyhemoglobin 97.7 (94-98) 07/13/20 13:52 ABG Carboxyhemoglobin 2.4 % (0.0-5.0) 07/08/20 Unknown ABG Methemoglobin 0 (0.0-1.5) 07/13/20 13:52 ABG Sodium 136.2 mmol/L (136.0-145.0) 07/13/20 13:52 ABG Potassium 3.2 mmol/L (3.40-4.50) L 07/13/20 13:52 ABG Chloride 92.0 mmol/L (98-107) L 07/13/20 13:52 ABG Glucose 169 mg/dL (65-95) H 07/13/20 13:52 Oxyhemoglobin 93.7 % (95.0-99.0) L 07/08/20 Unknown Carboxyhemoglobin 1.2 (0.5-1.5) 07/13/20 13:52 FiO2 45 07/13/20 13:52 Sodium 142 mmol/L (137-145) 08/03/20 05:18 Potassium 3.8 mmol/L (3.6-5.0) D 08/03/20 05:18 Chloride 100.0 mmol/L (98-107) 08/03/20 05:18 Carbon Dioxide 32 mmol/L (22-30) H D 08/03/20 05:18 Anion Gap 14 mmol/L 08/03/20 05:18 BUN 14 mg/dL (9-20) 08/03/20 05:18 Creatinine 0.4 mg/dL (0.8-1.3) L 08/03/20 05:18 Estimated GFR > 60 ml/min 08/03/20 05:18 BUN/Creatinine Ratio 35 % 08/03/20 05:18 Glucose 100 mg/dL (75-100) 08/03/20 05:18 POC Glucose 118 mg/dL (70-105) H 08/05/20 16:09 Lactic Acid 0.80 mmol/L (0.7-2.0) 07/13/20 15:45 Calcium 9.3 mg/dL (8.4-10.2) 08/03/20 05:18 Phosphorus 3.10 mg/dL (2.5-4.5) 06/15/20 04:00 Magnesium 2.00 mg/dL (1.7-2.3) 07/24/20 05:05 Ferritin 1496.0 ng/mL (30.0-300.0) H 06/14/20 11:50 Total Bilirubin 0.30 mg/dL (0.1-1.2) 08/02/20 05:55 Direct Bilirubin 0.6 mg/dL (0-0.2) H 05/11/20 07:30 Indirect Bilirubin 0.9 mg/dL 05/11/20 07:30 AST 37 units/L (5-40) 08/02/20 05:55 ALT 118 units/L (7-56) H 08/02/20 05:55 Alkaline Phosphatase 88 units/L (35-129) 08/02/20 05:55 Lactate Dehydrogenase 705 units/L (91-180) H 05/20/20 08:16 Troponin T 0.015 ng/mL (0.00-0.029) 07/07/20 10:00 C-Reactive Protein 3.10 mg/dL (0.00-1.30) H 05/20/20 08:16 Total Protein 6.4 g/dL (6.3-8.2) 08/02/20 05:55 Albumin 3.3 g/dL (3.9-5) L 08/02/20 05:55 Albumin/Globulin Ratio 1.1 % 08/02/20 05:55 Triglycerides 452 mg/dL (2-149) H 06/30/20 07:00 Lipase 86 units/L (13-60) H 06/29/20 09:36 Procalcitonin 2.15 ng/mL (<0.15) 07/15/20 05:31 Arterial Blood Glucose 169 mg/dL (65-95) H 07/13/20 13:52 Arterial Blood Ionized Calcium 4.8 mg/dL (4.6-5.3) 07/13/20 13:52 Urine Color Fauzia (Yellow) 05/10/20 Unknown Urine Turbidity Clear (Clear) 05/10/20 Unknown Urine pH 5.0 (5.0-7.0) 05/10/20 Unknown Ur Specific [place] 1.019 (1.003-1.030) 05/10/20 Unknown Urine Protein 100 mg/dl mg/dL (Negative) 05/10/20 Unknown Urine Glucose (UA) Neg mg/dL (Negative) 05/10/20 Unknown Urine Ketones Neg mg/dL (Negative) 05/10/20 Unknown Urine Blood Lg (Negative) 05/10/20 Unknown Urine Nitrite Neg (Negative) 05/10/20 Unknown Urine Bilirubin Neg (Negative) 05/10/20 Unknown Urine Urobilinogen 2.0 mg/dL (<2.0) 05/10/20 Unknown Ur Leukocyte Esterase Neg (Negative) 05/10/20 Unknown Urine WBC (Auto) 11.0 /HPF (0.0-6.0) H 05/10/20 Unknown Urine RBC (Auto) 2.0 /HPF (0.0-6.0) 05/10/20 Unknown U Epithel Cells (Auto) 1.0 /HPF (0-13.0) 05/10/20 Unknown Urine Bacteria (Auto) 1+ /HPF (Negative) 05/10/20 Unknown Urine Mucus Few /HPF 05/10/20 Unknown Plasma/Serum Alcohol < 0.01 % (0-0.07) 05/09/20 14:20 Coronavirus (PCR) Negative (Negative) 06/30/20 10:28 Hepatitis A Ab Total Nonreactive (Nonreactive) 07/09/20 Unknown Hep B Core Total Ab Nonreactive (Nonreactive) 07/09/20 Unknown Hepatitis C RNA Quant See scanned result 07/09/20 Unknown SARS-CoV-2 IgG Ab Reactive (NonReactive) A 05/11/20 07:30 Blood Type B POSITIVE 06/21/20 14:18 Antibody Screen Negative 06/21/20 14:18 Crossmatch See Detail 06/21/20 14:18 - Diagnostic Impressions Diagnostic Impressions: Echocardiogram 05/20/20 13:02 Transthoracic Echocardiogram Indication: CHF BP: 97/73 Conclusions *The study quality is technically very difficult and limited. *The left ventricular chamber size, wall thickness and systolic function are within normal limits. There are no wall motion abnormalities observed. Ejection fraction is normal. *The estimated ejection fraction is 60-65%. *The pericardium appears normal. Findings Procedure Info: The study quality is technically difficult. Left Ventricle: The left ventricular chamber size, wall thickness and systolic function are within normal limits. There are no wall motion abnormalities observed. Ejection fraction is normal. The estimated ejection fraction is 60-65%. Abnormal left ventricular diastolic filling is observed, consistent with impaired relaxation. Left Atrium: The left atrium is normal in size with no visual thrombus identified. Right Ventricle: The right ventricle is not well visualized. Right Atrium: The right atrium is not well visualized. Aortic Valve: The aortic valve is trileaflet. The leaflets are thin with normal excursion. There is no aortic stenosis or regurgitation present. Mitral Valve: The mitral valve appears normal in structure and function. Tricuspid Valve: The tricuspid valve appears normal in structure and function. Unable to estimate the right ventricular systolic pressure. Pulmonic Valve: The pulmonic valve is not well visualized. There is no evidence of pulmonic regurgitation. There is no pulmonic stenosis. Pericardium: The pericardium appears normal. Pulmonary Artery: The main pulmonary artery is not well visualized. Venous: The inferior vena cava appears normal in size. Measurements Chambers 2D Name Value Normal Range IVSd (2D) 0.83 cm (0.6 - 1.1) LVPWd (2D) 0.83 cm (0.6 - 1.1) LVIDd (2D) 3.88 cm (3.7 - 5.6) LVIDs (2D) 2.46 cm (2 - 3.8) LV FS (2D) 36.52 % - EF Teichholz (2D) 66.97 % - Ao root diameter (2D) 3.47 cm (2 - 3.7) Volumes/Mass Name Value Normal Range LA ESV SP 4CH (A/L) 22.4 ml - LA ESV SP 2CH (A/L) 22.89 ml - LA ESV BP (A/L) 23.06 ml - LA ESV SP 4CH (MOD) 21.09 ml - LA ESV SP 2CH (MOD) 22.44 ml - Diastolic/Systolic Function Name Value Normal Range MV E-wave Vmax 0.48 m/sec - MV deceleration time 156.3 msec - MV A-wave Vmax 0.59 m/sec - MV E:A ratio 0.81 ratio - Aortic Valve Name Value Normal Range AV Vmax 0.97 m/sec - AV VTI 14.49 cm - AV peak gradient 3.73 mmHg - AV mean gradient 1.89 mmHg - LVOT diameter 2.09 cm - LVOT Vmax 0.72 m/sec - LVOT VTI 10.21 cm - LVOT peak gradient 2.05 mmHg - LVOT mean gradient 1.03 mmHg - SV LVOT 35.17 ml - INNA (continuity Vmax) 2.55 cm2 - INNA (continuity VTI) 2.43 cm2 - Tricuspid Valve Name Value Normal Range TV E-wave Vmax 0.37 m/sec - Pulmonic Valve/Qp:Qs Name Value Normal Range PV Vmax 0.72 m/sec - PV peak gradient 2.06 mmHg - RVOT Vmax 0.85 m/sec - RVOT VTI 9.89 cm - RVOT peak gradient 2.9 mmHg - PV acceleration time 72.31 msec - Cantor/IV: Voiding Method Condom Catheter IV Catheter Type [Right Wrist] INT / Saline Lock IV Catheter Type [Right Upper Peripheral IV arm] IV Catheter Type [Right CVL Internal Jugular] IV Catheter Type [Right Peripheral IV Forearm] IV Catheter Type [Left Forearm INT / Saline Lock ] IV Catheter Type [Left Wrist] INT / Saline Lock IV Catheter Type [Right Hand] INT / Saline Lock IV Catheter Type [Left Hand] INT / Saline Lock IV Catheter Type [Left Peripheral IV Antecubital] Active Medications - Current Medications Current Medications: Generic Name Dose Route Start Last Admin Trade Name Freq PRN Reason Stop Dose Admin Alprazolam 0.25 mg 05/20/20 17:53 07/26/20 09:37 Alprazolam 0.25 Mg Tab PO 0.25 mg Q8H PRN Administration Anxiety Lipase/Protease/Amylase 1 each 05/22/20 13:01 Lipase 10,500/Protease 25,000/Amylase 43,750 (Units) Dr Newell FEEDTUBE PRN PRN For Clogged Feeding Tube Bisacodyl 10 mg 07/14/20 11:00 Bisacodyl 10 Mg Rect Supp CA BID PRN Laxative Effect Enoxaparin Sodium 40 mg 07/29/20 22:00 08/04/20 21:52 Enoxaparin 40 Mg/0.4 Ml Inj SUB-Q 40 mg QDAY@2200 [facility] Administration Protocol Folic Acid 1 mg 05/09/20 15:36 08/05/20 13:53 Folic Acid 1 Mg Tab PO 1 mg QDAY DESIRE Administration Guaifenesin 600 mg 07/19/20 23:00 08/05/20 13:52 Guaifenesin Er 600 Mg Tab PO 600 mg BID DESIRE Administration Hydrophilic Ointment 1 applic 05/21/20 20:33 Lip Therapy Vaseline TP Q2HR PRN Dry Lips Insulin Human Lispro 0 unit 07/31/20 07:30 08/05/20 13:51 Insulin Lispro 100 Unit/Ml SUB-Q Not Given ACHS [facility] Protocol Lansoprazole 30 mg 06/28/20 10:00 08/05/20 13:52 Lansoprazole 30 Mg Solutab FEEDTUBE 30 mg QDAY DESIRE Administration Metoprolol Tartrate 5 mg 07/02/20 17:17 07/08/20 14:38 Metoprolol Tartrate 5 Mg/5 Ml Inj IV 5 mg Q6HR PRN Administration Tachyarrhythmias Metoprolol Tartrate 12.5 mg 07/17/20 12:00 08/05/20 13:53 Metoprolol Tartrate 25 Mg Tab PO 12.5 mg BID [facility] Administration Midodrine 10 mg 06/30/20 16:00 08/05/20 13:53 Midodrine 5 Mg Tab PO 10 mg TID@0800,1200,1600 [facility] Administration Multi-Ingred Cream/Lotion/Oil/Oint 1 applic 05/21/20 20:33 Mineral Oil/Petrolatum, White Ophth Oint 3.5 Gm OU Q4HR PRN Dry Eye(s) Olanzapine 5 mg 07/17/20 22:00 08/04/20 21:52 Olanzapine 5 Mg Tab PO 5 mg QHS DESIRE Administration Phenobarbital 32.4 mg 07/04/20 22:00 08/05/20 13:53 Phenobarbital 32.4 Mg Tab PO 32.4 mg BID DESIRE Administration Prednisone 5 mg 08/04/20 10:00 08/05/20 13:53 Prednisone 5 Mg Tab PO 08/06/20 10:01 5 mg QDAY DESIRE Administration Prednisone 2.5 mg 08/07/20 10:00 Prednisone 5 Mg Tab PO 08/09/20 10:01 QDAY DESIRE Quetiapine Fumarate 200 mg 07/16/20 10:00 08/05/20 13:53 Quetiapine 200 Mg Tab PO 200 mg QAM DESIRE Administration Senna 17.2 mg 07/14/20 11:00 08/03/20 16:46 Sennosides 8.6 Mg Tab PO 8.6 mg BID PRN Administration Laxative Effect Nutrition/Malnutrition Assess - Dietary Evaluation Nutrition/Malnutrition Findings: Nutrition Notes Start: 05/17/20 14:10 Freq: Status: Active Protocol: Document 08/04/20 11:40 CECY (Rec: 08/04/20 11:45 CECY [id number]) Co-Sign 08/04/20 11:40 MK Nutrition Notes Initial or Follow up Reassessment Current Diagnosis Decubitus(Pressure Ulcer), Sepsis,Respiratory Failure Other Pertinent Diagnosis Bilat pneu, COVID-19 (-), EtOH dependence Current Diet Regular diet Labs/Tests Cr 0.4 BG 100 POC 167 Pertinent Medications Folic Acid Prednisone Height 6 ft Weight 98.2 kg Usual Body Weight 118 kg [place] Body Weight (kg) 80.90 BMI 29.3 Weight Status Overweight Subjective/Other Information F/u intakes, ONS, and Sammy. Pt reported eating very well, drinking ONS and Sammy. Percent of energy/protein needs met: 100%/100% Burn Absent Trauma Absent GI Symptoms None Current % PO Good (75-100%) Minimum of two criteria Yes Interpretation of Weight Loss (severe) >5% in 1 month Muscle Mass Mild Depletion (non-severe) #4 Nutrition Diagnosis Food and nutrition-related knowledge deficit As Evidenced by Signs and Symptoms Pt had no questions Diagnosis Progress(for reassessment Resolved documentation) #3 Nutrition Diagnosis Malnutrition Diagnosis Progress(for reassessment Continues documentation) #2 Nutrition Diagnosis Increased nutrient needs ( specify in comment below) Diagnosis Progress(for reassessment Continues documentation) Is patient on ventilator? No Is Patient Ambulatory and/or Out of Bed No REE-([place]-St. Jeor-confined to bed) 2253.720 Kcal/Kg value to use for calculation 21 Approximate Energy Requirements Using 2 kcal/Kg Calculation Used for Recommendations Kcal/kg Additional Notes Protein: 106-134 g (1.2-1.5 g/ kg AdBW 89 kg) Fluid: 1ml/kcal Nutrition Intervention Change Diet Order: Continue diet Add Supplement/Snack (indicate name/kcal Ensure High Protein daily /protein ) Sammy BID Provides kCal: 350 Provides Protein (gm) 21 Goal #1 Meet at least 75% protein and energy needs via PO Goal #2 ONS tolerance Goal #3 Intake of Sammy BID Anticipated Discharge Needs: Regular, healthful diet and Sammy BID and increased protein intake until pressure ulcer is healed. Follow-Up By: 08/11/20 Additional Comments F/u intakes, ONS and Sammy tolerance/intake
[2020-08-05] MEDS: ENOXAPARIN 40 MG/0.4 ML INJ SUB-Q SCH (22:50)
[2020-08-06] MEDS: INSULIN LISPRO 100 UNIT/ML SUB-Q SCH ×4 (08:27→21:31)
--- NOTE | 2020-08-06 08:52 | Progress Note ---
Assessment and Plan Assessment and plan: Positive COVID-19 test; 05/10/2020 Negative COVID-19 test; 06/30/2020 --Acute hypoxemic respiratory failure; on 8 L oxygen Oxygen titrated to 3 to 4 L, Pulmonary following Inpatient rehab has accepted for rehab therapy Pending COVID-19 test --Pneumothorax status post right chest tube Chest tube removed 07/23/2020 Post removal chest x-ray no pneumothorax Patient is requiring 3 to 4 L nasal cannula --Severe hypokalemia; resolved --Sinus tachycardia: Significantly improved Supportive care --Severe COVID-19 bilateral pneumonia Coronavirus protocol: Completed steroids and remdesivir therapy, isolation precautions, Received management per COVID-19 protocol Repeat ivory PCR test negative on 06/30/2020 Isolation discontinued --Elevated D-dimers; Patient had CTA chest ; negative for PE, patient already had lower extremity venous Doppler which was negative for DVT We will discontinue empiric therapeutic Lovenox, and change to DVT prophylaxis dose 40 mg subcu daily --Pseudomonas bacteremia; ID following, completed cefepime Monitor off antibiotics --Severe sepsis/septic shock, monitor off pressors Completed cefepime, monitor off antibiotics -- Acute kidney injury (SEN) , likely vasomotor nephropathy Resolved, avoid nephrotoxins --Acute on chronic anemia Guaiac test positive, GI evaluated the patient Patient H&H is normal range now Hb 11.8 -- Elevated liver function tests; resolved LFTs within normal limits --Colonic distention GI evaluated colonic distention resolved recommend stool softeners -- DVT prophylaxis On therapeutic Lovenox Chest tube removed Patient on 10 L nasal cannula oxygen, wean as tolerated Elevated D-dimers, on empiric therapeutic Lovenox CTA chest negative for PE,LE DVT negative, therapeutic Lovenox DC'd Changed to prophylactic Lovenox Discharge planning per case management reports that IRU is evaluating the patient for placement Patient is medically stable for discharge awaiting placement 07/23/2020; patient remains on high flow oxygen, wean oxygen as tolerated, severe hypokalemia Replenish per protocol monitor levels 07/24/2020; patient had chest tube removal yesterday 07/23/2019 and, post removal chest x-ray no pneumothorax no acute abnormalities Patient feels slightly better continues to require high flow oxygen Wean as tolerated, physical and occupational therapy, DC planning 07/26/2020; patient on 3 L nasal cannula oxygen, patient feels better 07/27/2020; patient was saturating well on 3 L of nasal cannula oxygen, however today patient is on high flow oxygen 15 L Complains of some congestion, wean oxygen levels to 3-5 as tolerated Discharge planning LTAC has refused patient,Possible home with home health versus placement when medically stable 07/28/2020; continue to wean oxygen, patient is on 10 L, awaiting placement 07/29/2020; continues to be on 10 L nasal cannula oxygen, wean as tolerated Patient is on empiric therapeutic dose Lovenox, due to elevated D-dimers Patient is stable for CTA chest today, follow the report and adjust Lovenox as needed DC planning per case management, with pending placement 07/30/2020; patient feels slightly better, oxygen reduced to 8 L of nasal cannula Will check PT OT, pending placement 07/31/2020 Patient on 8 L of nasal cannula oxygen 08/03/2020; patient's oxygen requirement has come down to 3-4 and half liters nasal cannula Will try to wean oxygen as tolerated, respiratory therapist assisting to reach the goal Possible discharge home in 1 to 2 days if stable Plan of care reviewed with the patient and his nurse 08/04/2020; patient is requiring 3 to 4 L nasal cannula oxygen, case management to set up home oxygen Patient is hemodynamically and clinically stable for discharge, pending placement [facility] And of care reviewed with the patient and his nurse as well as the case management 08/05/2020 ; COVID-19 test requested , patient is hemodynamically and clinically stable for discharge Patient is requiring 4 L of nasal cannula oxygen . medically stable for discharge 08/06/2020; patient is hemodynamically and clinically stable for discharge and transfer to IRU unit today Pre-discharge COVID-19 test is negative, pending insurance authorization History Interval history: I have seen and examined the patient at the bedside in his room today Patient's chart and medications reviewed Patient feels better IRU. Evaluating the patient for possible admission and therapy Patient has no complaints Vital signs noted Hospitalist Physical - Constitutional Vitals: Temp Pulse Resp BP Pulse Ox 98.5 F 101 H 20 101/63 94 08/06/20 03:56 08/06/20 03:56 08/06/20 03:56 08/06/20 03:56 08/06/20 08:30 General appearance: Present: no acute distress, well-nourished - EENT Eyes: Present: PERRL, EOM intact - Neck Neck: Present: supple, normal ROM - Respiratory Respiratory effort: normal Respiratory: bilateral: diminished, negative: rales, rhonchi, wheezing - Cardiovascular Rhythm: regular Heart Sounds: Present: S1 & S2 - Extremities Extremities: no ischemia, No edema - Abdominal General gastrointestinal: soft, non-tender, non-distended, normal bowel sounds - Integumentary Integumentary: Present: clear, warm - Psychiatric Psychiatric: appropriate mood/affect, cooperative - Neurologic Neurologic: CNII-XII intact, moves all extremities HEART Score - HEART Score Troponin: Troponin T 0.015 ng/mL (0.00-0.029) 07/07/20 10:00 Results - Labs CBC & Chem 7: 08/02/20 05:55 08/03/20 05:18 Labs: Laboratory Last Values WBC 12.4 K/mm3 (4.5-11.0) H 08/02/20 05:55 RBC 3.85 M/mm3 (3.65-5.03) 08/02/20 05:55 Hgb 12.3 gm/dl (11.8-15.2) 08/02/20 05:55 Hct 37.9 % (35.5-45.6) 08/02/20 05:55 MCV 99 fl (84-94) H 08/02/20 05:55 MCH 32 pg (28-32) 08/02/20 05:55 MCHC 33 % (32-34) 08/02/20 05:55 RDW 16.9 % (13.2-15.2) H 08/02/20 05:55 Plt Count 267 K/mm3 (140-440) 08/02/20 05:55 Lymph % (Auto) 18.3 % (13.4-35.0) 08/02/20 05:55 Griggs % (Auto) 9.7 % (0.0-7.3) H 08/02/20 05:55 Eos % (Auto) 3.3 % (0.0-4.3) 08/02/20 05:55 Baso % (Auto) 0.4 % (0.0-1.8) 08/02/20 05:55 Lymph # (Auto) 2.3 K/mm3 (1.2-5.4) 08/02/20 05:55 [place]gs # (Auto) 1.2 K/mm3 (0.0-0.8) H 08/02/20 05:55 Eos # (Auto) 0.4 K/mm3 (0.0-0.4) 08/02/20 05:55 Baso # (Auto) 0.1 K/mm3 (0.0-0.1) 08/02/20 05:55 Add Manual Diff Complete 07/13/20 08:31 Total Counted 100 07/13/20 08:31 Seg Neutrophils % 68.3 % (40.0-70.0) 08/02/20 05:55 Seg Neuts % (Manual) 96.0 % (40.0-70.0) H 07/13/20 08:31 Band Neutrophils % 0 % 07/13/20 08:31 Lymphocytes % (Manual) 2.0 % (13.4-35.0) L 07/13/20 08:31 Reactive Lymphs % (Man) 0 % 07/13/20 08:31 Monocytes % (Manual) 2.0 % (0.0-7.3) 07/13/20 08:31 Eosinophils % (Manual) 0 % (0.0-4.3) 07/13/20 08:31 Basophils % (Manual) 0 % (0.0-1.8) 07/13/20 08:31 Metamyelocytes % 0 % 07/13/20 08:31 Myelocytes % 0 % 07/13/20 08:31 Promyelocytes % 0 % 07/13/20 08:31 Blast Cells % 0 % 07/13/20 08:31 Nucleated RBC % Not Reportable 07/13/20 08:31 Seg Neutrophils # 8.5 K/mm3 (1.8-7.7) H 08/02/20 05:55 Seg Neutrophils # Man 20.4 K/mm3 (1.8-7.7) H 07/13/20 08:31 Band Neutrophils # 0.0 K/mm3 07/13/20 08:31 Lymphocytes # (Manual) 0.4 K/mm3 (1.2-5.4) L 07/13/20 08:31 Abs React Lymphs (Man) 0.0 K/mm3 07/13/20 08:31 Monocytes # (Manual) 0.4 K/mm3 (0.0-0.8) 07/13/20 08:31 Eosinophils # (Manual) 0.0 K/mm3 (0.0-0.4) 07/13/20 08:31 Basophils # (Manual) 0.0 K/mm3 (0.0-0.1) 07/13/20 08:31 Metamyelocytes # 0.0 K/mm3 07/13/20 08:31 Myelocytes # 0.0 K/mm3 07/13/20 08:31 Promyelocytes # 0.0 K/mm3 07/13/20 08:31 Blast Cells # 0.0 K/mm3 07/13/20 08:31 WBC Morphology Not Reportable 07/13/20 08:31 Hypersegmented Neuts Not Reportable 07/13/20 08:31 Hyposegmented Neuts Not Reportable 07/13/20 08:31 Hypogranular Neuts Not Reportable 07/13/20 08:31 Smudge Cells Not Reportable 07/13/20 08:31 Toxic Granulation Not Reportable 07/13/20 08:31 Toxic Vacuolation Not Reportable 07/13/20 08:31 Dohle Bodies Not Reportable 07/13/20 08:31 Pelger-Huet Anomaly Not Reportable 07/13/20 08:31 Jason Rods Not Reportable 07/13/20 08:31 Platelet Estimate Consistent w auto 07/13/20 08:31 Clumped Platelets Not Reportable 07/13/20 08:31 Plt Clumps, EDTA Not Reportable 07/13/20 08:31 Large Platelets Not Reportable 07/13/20 08:31 Giant Platelets Not Reportable 07/13/20 08:31 Platelet Satelliting Not Reportable 07/13/20 08:31 Plt Morphology Comment Not Reportable 07/13/20 08:31 RBC Morphology Not Reportable 07/13/20 08:31 Dimorphic RBCs Not Reportable 07/13/20 08:31 Polychromasia Not Reportable 07/13/20 08:31 Hypochromasia Not Reportable 07/13/20 08:31 Poikilocytosis Not Reportable 07/13/20 08:31 Anisocytosis Not Reportable 07/13/20 08:31 Microcytosis Not Reportable 07/13/20 08:31 Macrocytosis Not Reportable 07/13/20 08:31 Spherocytes Not Reportable 07/13/20 08:31 Pappenheimer Bodies Not Reportable 07/13/20 08:31 Sickle Cells Not Reportable 07/13/20 08:31 Target Cells Not Reportable 07/13/20 08:31 Tear Drop Cells Not Reportable 07/13/20 08:31 Ovalocytes Not Reportable 07/13/20 08:31 Stomatocytes Few 07/13/20 08:31 Helmet Cells Not Reportable 07/13/20 08:31 [place] Bodies Not Reportable 07/13/20 08:31 [place] Rings Not Reportable 07/13/20 08:31 Izabella Cells Not Reportable 07/13/20 08:31 Bite Cells Not Reportable 07/13/20 08:31 Crenated Cell Not Reportable 07/13/20 08:31 Elliptocytes Not Reportable 07/13/20 08:31 Acanthocytes (Spur) Not Reportable 07/13/20 08:31 Rouleaux Not Reportable 07/13/20 08:31 Hemoglobin C Crystals Not Reportable 07/13/20 08:31 Schistocytes Not Reportable 07/13/20 08:31 Malaria parasites Not Reportable 07/13/20 08:31 Josue Bodies Not Reportable 07/13/20 08:31 Hem Pathologist Commnt No 07/13/20 08:31 PT 11.8 Sec. (12.2-14.9) L 06/22/20 14:29 INR 0.88 (0.87-1.13) 06/22/20 14:29 APTT 23.5 Sec. (24.2-36.6) L 06/22/20 14:29 D-Dimer 1887.82 ng/mlDDU (0-234) H 05/20/20 08:16 Heparin Anti-Xa Level 0.37 U.I./ml (0.3-0.7) 07/02/20 16:08 ABG pH 7.477 (7.320-7.450) H 07/13/20 13:52 POC ABG pCO2 54.4 mmHg (32.0-48.0) H 07/13/20 13:52 ABG pCO2 53.1 mm Hg 07/08/20 Unknown POC ABG pO2 126.8 mmHg (83-108) H 07/13/20 13:52 ABG pO2 75.3 mm Hg (80.0-90.0) L 07/08/20 Unknown POC ABG HCO3 39.3 07/13/20 13:52 ABG HCO3 34.3 mmol/L (20.0-26.0) H 07/08/20 Unknown ABG O2 Saturation 96.5 % (95.0-99.0) 07/08/20 Unknown ABG O2 Content 13.5 (0.0-44) 07/08/20 Unknown POC ABG Base Excess 13.8 07/13/20 13:52 ABG Base Excess 8.7 mmol/L (-2.0-3.0) H 07/08/20 Unknown ABG Hemoglobin 11.5 (12.0-17.5) L 07/13/20 13:52 ABG Oxyhemoglobin 97.7 (94-98) 07/13/20 13:52 ABG Carboxyhemoglobin 2.4 % (0.0-5.0) 07/08/20 Unknown ABG Methemoglobin 0 (0.0-1.5) 07/13/20 13:52 ABG Sodium 136.2 mmol/L (136.0-145.0) 07/13/20 13:52 ABG Potassium 3.2 mmol/L (3.40-4.50) L 07/13/20 13:52 ABG Chloride 92.0 mmol/L (98-107) L 07/13/20 13:52 ABG Glucose 169 mg/dL (65-95) H 07/13/20 13:52 Oxyhemoglobin 93.7 % (95.0-99.0) L 07/08/20 Unknown Carboxyhemoglobin 1.2 (0.5-1.5) 07/13/20 13:52 FiO2 45 07/13/20 13:52 Sodium 142 mmol/L (137-145) 08/03/20 05:18 Potassium 3.8 mmol/L (3.6-5.0) D 08/03/20 05:18 Chloride 100.0 mmol/L (98-107) 08/03/20 05:18 Carbon Dioxide 32 mmol/L (22-30) H D 08/03/20 05:18 Anion Gap 14 mmol/L 08/03/20 05:18 BUN 14 mg/dL (9-20) 08/03/20 05:18 Creatinine 0.4 mg/dL (0.8-1.3) L 08/03/20 05:18 Estimated GFR > 60 ml/min 08/03/20 05:18 BUN/Creatinine Ratio 35 % 08/03/20 05:18 Glucose 100 mg/dL (75-100) 08/03/20 05:18 POC Glucose 120 mg/dL (70-105) H 08/05/20 22:06 Lactic Acid 0.80 mmol/L (0.7-2.0) 07/13/20 15:45 Calcium 9.3 mg/dL (8.4-10.2) 08/03/20 05:18 Phosphorus 3.10 mg/dL (2.5-4.5) 06/15/20 04:00 Magnesium 2.00 mg/dL (1.7-2.3) 07/24/20 05:05 Ferritin 1496.0 ng/mL (30.0-300.0) H 06/14/20 11:50 Total Bilirubin 0.30 mg/dL (0.1-1.2) 08/02/20 05:55 Direct Bilirubin 0.6 mg/dL (0-0.2) H 05/11/20 07:30 Indirect Bilirubin 0.9 mg/dL 05/11/20 07:30 AST 37 units/L (5-40) 08/02/20 05:55 ALT 118 units/L (7-56) H 08/02/20 05:55 Alkaline Phosphatase 88 units/L (35-129) 08/02/20 05:55 Lactate Dehydrogenase 705 units/L (91-180) H 05/20/20 08:16 Troponin T 0.015 ng/mL (0.00-0.029) 07/07/20 10:00 C-Reactive Protein 3.10 mg/dL (0.00-1.30) H 05/20/20 08:16 Total Protein 6.4 g/dL (6.3-8.2) 08/02/20 05:55 Albumin 3.3 g/dL (3.9-5) L 08/02/20 05:55 Albumin/Globulin Ratio 1.1 % 08/02/20 05:55 Triglycerides 452 mg/dL (2-149) H 06/30/20 07:00 Lipase 86 units/L (13-60) H 06/29/20 09:36 Procalcitonin 2.15 ng/mL (<0.15) 07/15/20 05:31 Arterial Blood Glucose 169 mg/dL (65-95) H 07/13/20 13:52 Arterial Blood Ionized Calcium 4.8 mg/dL (4.6-5.3) 07/13/20 13:52 Urine Color Fauzia (Yellow) 05/10/20 Unknown Urine Turbidity Clear (Clear) 05/10/20 Unknown Urine pH 5.0 (5.0-7.0) 05/10/20 Unknown Ur Specific [place] 1.019 (1.003-1.030) 05/10/20 Unknown Urine Protein 100 mg/dl mg/dL (Negative) 05/10/20 Unknown Urine Glucose (UA) Neg mg/dL (Negative) 05/10/20 Unknown Urine Ketones Neg mg/dL (Negative) 05/10/20 Unknown Urine Blood Lg (Negative) 05/10/20 Unknown Urine Nitrite Neg (Negative) 05/10/20 Unknown Urine Bilirubin Neg (Negative) 05/10/20 Unknown Urine Urobilinogen 2.0 mg/dL (<2.0) 05/10/20 Unknown Ur Leukocyte Esterase Neg (Negative) 05/10/20 Unknown Urine WBC (Auto) 11.0 /HPF (0.0-6.0) H 05/10/20 Unknown Urine RBC (Auto) 2.0 /HPF (0.0-6.0) 05/10/20 Unknown U Epithel Cells (Auto) 1.0 /HPF (0-13.0) 05/10/20 Unknown Urine Bacteria (Auto) 1+ /HPF (Negative) 05/10/20 Unknown Urine Mucus Few /HPF 05/10/20 Unknown Plasma/Serum Alcohol < 0.01 % (0-0.07) 05/09/20 14:20 Coronavirus (PCR) Negative (Negative) 06/30/20 10:28 Hepatitis A Ab Total Nonreactive (Nonreactive) 07/09/20 Unknown Hep B Core Total Ab Nonreactive (Nonreactive) 07/09/20 Unknown Hepatitis C RNA Quant See scanned result 07/09/20 Unknown SARS-CoV-2 IgG Ab Reactive (NonReactive) A 05/11/20 07:30 Blood Type B POSITIVE 06/21/20 14:18 Antibody Screen Negative 06/21/20 14:18 Crossmatch See Detail 06/21/20 14:18 - Diagnostic Impressions Diagnostic Impressions: Echocardiogram 05/20/20 13:02 Transthoracic Echocardiogram Indication: CHF BP: 97/73 Conclusions *The study quality is technically very difficult and limited. *The left ventricular chamber size, wall thickness and systolic function are within normal limits. There are no wall motion abnormalities observed. Ejection fraction is normal. *The estimated ejection fraction is 60-65%. *The pericardium appears normal. Findings Procedure Info: The study quality is technically difficult. Left Ventricle: The left ventricular chamber size, wall thickness and systolic function are within normal limits. There are no wall motion abnormalities observed. Ejection fraction is normal. The estimated ejection fraction is 60-65%. Abnormal left ventricular diastolic filling is observed, consistent with impaired relaxation. Left Atrium: The left atrium is normal in size with no visual thrombus identified. Right Ventricle: The right ventricle is not well visualized. Right Atrium: The right atrium is not well visualized. Aortic Valve: The aortic valve is trileaflet. The leaflets are thin with normal excursion. There is no aortic stenosis or regurgitation present. Mitral Valve: The mitral valve appears normal in structure and function. Tricuspid Valve: The tricuspid valve appears normal in structure and function. Unable to estimate the right ventricular systolic pressure. Pulmonic Valve: The pulmonic valve is not well visualized. There is no evidence of pulmonic regurgitation. There is no pulmonic stenosis. Pericardium: The pericardium appears normal. Pulmonary Artery: The main pulmonary artery is not well visualized. Venous: The inferior vena cava appears normal in size. Measurements Chambers 2D Name Value Normal Range IVSd (2D) 0.83 cm (0.6 - 1.1) LVPWd (2D) 0.83 cm (0.6 - 1.1) LVIDd (2D) 3.88 cm (3.7 - 5.6) LVIDs (2D) 2.46 cm (2 - 3.8) LV FS (2D) 36.52 % - EF Teichholz (2D) 66.97 % - Ao root diameter (2D) 3.47 cm (2 - 3.7) Volumes/Mass Name Value Normal Range LA ESV SP 4CH (A/L) 22.4 ml - LA ESV SP 2CH (A/L) 22.89 ml - LA ESV BP (A/L) 23.06 ml - LA ESV SP 4CH (MOD) 21.09 ml - LA ESV SP 2CH (MOD) 22.44 ml - Diastolic/Systolic Function Name Value Normal Range MV E-wave Vmax 0.48 m/sec - MV deceleration time 156.3 msec - MV A-wave Vmax 0.59 m/sec - MV E:A ratio 0.81 ratio - Aortic Valve Name Value Normal Range AV Vmax 0.97 m/sec - AV VTI 14.49 cm - AV peak gradient 3.73 mmHg - AV mean gradient 1.89 mmHg - LVOT diameter 2.09 cm - LVOT Vmax 0.72 m/sec - LVOT VTI 10.21 cm - LVOT peak gradient 2.05 mmHg - LVOT mean gradient 1.03 mmHg - SV LVOT 35.17 ml - INNA (continuity Vmax) 2.55 cm2 - INNA (continuity VTI) 2.43 cm2 - Tricuspid Valve Name Value Normal Range TV E-wave Vmax 0.37 m/sec - Pulmonic Valve/Qp:Qs Name Value Normal Range PV Vmax 0.72 m/sec - PV peak gradient 2.06 mmHg - RVOT Vmax 0.85 m/sec - RVOT VTI 9.89 cm - RVOT peak gradient 2.9 mmHg - PV acceleration time 72.31 msec - Cantor/IV: Voiding Method Urinal IV Catheter Type [Right Wrist] INT / Saline Lock IV Catheter Type [Right Upper Peripheral IV arm] IV Catheter Type [Right CVL Internal Jugular] IV Catheter Type [Right Peripheral IV Forearm] IV Catheter Type [Left Forearm INT / Saline Lock ] IV Catheter Type [Left Wrist] INT / Saline Lock IV Catheter Type [Right Hand] INT / Saline Lock IV Catheter Type [Left Hand] INT / Saline Lock IV Catheter Type [Left Peripheral IV Antecubital] Active Medications - Current Medications Current Medications: Generic Name Dose Route Start Last Admin Trade Name Freq PRN Reason Stop Dose Admin Alprazolam 0.25 mg 05/20/20 17:53 07/26/20 09:37 Alprazolam 0.25 Mg Tab PO 0.25 mg Q8H PRN Administration Anxiety Lipase/Protease/Amylase 1 each 05/22/20 13:01 Lipase 10,500/Protease 25,000/Amylase 43,750 (Units) Dr Newell FEEDTUBE PRN PRN For Clogged Feeding Tube Bisacodyl 10 mg 07/14/20 11:00 Bisacodyl 10 Mg Rect Supp SC BID PRN Laxative Effect Enoxaparin Sodium 40 mg 07/29/20 22:00 08/05/20 22:50 Enoxaparin 40 Mg/0.4 Ml Inj SUB-Q 40 mg QDAY@2200 [facility] Administration Protocol Folic Acid 1 mg 05/09/20 15:36 08/05/20 13:53 Folic Acid 1 Mg Tab PO 1 mg QDAY DESIRE Administration Guaifenesin 600 mg 07/19/20 23:00 08/05/20 22:55 Guaifenesin Er 600 Mg Tab PO 600 mg BID [facility] Administration Hydrophilic Ointment 1 applic 05/21/20 20:33 Lip Therapy Vaseline TP Q2HR PRN Dry Lips Insulin Human Lispro 0 unit 07/31/20 07:30 08/06/20 08:27 Insulin Lispro 100 Unit/Ml SUB-Q Not Given ACHS [facility] Protocol Lansoprazole 30 mg 06/28/20 10:00 08/05/20 13:52 Lansoprazole 30 Mg Solutab FEEDTUBE 30 mg QDAY DESIRE Administration Metoprolol Tartrate 5 mg 07/02/20 17:17 07/08/20 14:38 Metoprolol Tartrate 5 Mg/5 Ml Inj IV 5 mg Q6HR PRN Administration Tachyarrhythmias Metoprolol Tartrate 12.5 mg 07/17/20 12:00 08/05/20 22:55 Metoprolol Tartrate 25 Mg Tab PO 12.5 mg BID [facility] Administration Multi-Ingred Cream/Lotion/Oil/Oint 1 applic 05/21/20 20:33 Mineral Oil/Petrolatum, White Ophth Oint 3.5 Gm OU Q4HR PRN Dry Eye(s) Olanzapine 5 mg 07/17/20 22:00 08/05/20 22:55 Olanzapine 5 Mg Tab PO 5 mg QHS DESIRE Administration Phenobarbital 32.4 mg 07/04/20 22:00 08/05/20 22:50 Phenobarbital 32.4 Mg Tab PO 32.4 mg BID DESIRE Administration Prednisone 5 mg 08/04/20 10:00 08/05/20 13:53 Prednisone 5 Mg Tab PO 08/06/20 10:01 5 mg QDAY DESIRE Administration Prednisone 2.5 mg 08/07/20 10:00 Prednisone 5 Mg Tab PO 08/09/20 10:01 QDAY DESIRE Quetiapine Fumarate 200 mg 07/16/20 10:00 08/05/20 13:53 Quetiapine 200 Mg Tab PO 200 mg QAM DESIRE Administration Senna 17.2 mg 07/14/20 11:00 08/03/20 16:46 Sennosides 8.6 Mg Tab PO 8.6 mg BID PRN Administration Laxative Effect Nutrition/Malnutrition Assess - Dietary Evaluation Nutrition/Malnutrition Findings: Nutrition Notes Start: 05/17/20 14:10 Freq: Status: Active Protocol: Document 08/04/20 11:40 CECY (Rec: 08/04/20 11:45 CECY [id number]) Co-Sign 08/04/20 11:40 DANA Nutrition Notes Initial or Follow up Reassessment Current Diagnosis Decubitus(Pressure Ulcer), Sepsis,Respiratory Failure Other Pertinent Diagnosis Bilat pneu, COVID-19 (-), EtOH dependence Current Diet Regular diet Labs/Tests Cr 0.4 BG 100 POC 167 Pertinent Medications Folic Acid Prednisone Height 6 ft Weight 98.2 kg Usual Body Weight 118 kg [place] Body Weight (kg) 80.90 BMI 29.3 Weight Status Overweight Subjective/Other Information F/u intakes, ONS, and Sammy. Pt reported eating very well, drinking ONS and Sammy. Percent of energy/protein needs met: 100%/100% Burn Absent Trauma Absent GI Symptoms None Current % PO Good (75-100%) Minimum of two criteria Yes Interpretation of Weight Loss (severe) >5% in 1 month Muscle Mass Mild Depletion (non-severe) #4 Nutrition Diagnosis Food and nutrition-related knowledge deficit As Evidenced by Signs and Symptoms Pt had no questions Diagnosis Progress(for reassessment Resolved documentation) #3 Nutrition Diagnosis Malnutrition Diagnosis Progress(for reassessment Continues documentation) #2 Nutrition Diagnosis Increased nutrient needs ( specify in comment below) Diagnosis Progress(for reassessment Continues documentation) Is patient on ventilator? No Is Patient Ambulatory and/or Out of Bed No REE-([place]-confined to bed) 2253.720 Kcal/Kg value to use for calculation 21 Approximate Energy Requirements Using 2 kcal/Kg Calculation Used for Recommendations Kcal/kg Additional Notes Protein: 106-134 g (1.2-1.5 g/ kg AdBW 89 kg) Fluid: 1ml/kcal Nutrition Intervention Change Diet Order: Continue diet Add Supplement/Snack (indicate name/kcal Ensure High Protein daily /protein ) Sammy BID Provides kCal: 350 Provides Protein (gm) 21 Goal #1 Meet at least 75% protein and energy needs via PO Goal #2 ONS tolerance Goal #3 Intake of Sammy BID Anticipated Discharge Needs: Regular, healthful diet and Sammy BID and increased protein intake until pressure ulcer is healed. Follow-Up By: 08/11/20 Additional Comments F/u intakes, ONS and Sammy tolerance/intake
[2020-08-06] MEDS: MIDODRINE 5 MG TAB PO SCH (09:32)
[2020-08-06] MEDS: PHENobarbital 32.4 MG TAB PO SCH ×2 (10:29→21:32)
[2020-08-06] MEDS: FOLIC ACID 1 MG TAB PO SCH (10:29)
[2020-08-06] MEDS: QUEtiapine 200 MG TAB PO SCH (10:29)
[2020-08-06] MEDS: guaiFENesin ER 600 MG TAB PO SCH ×2 (10:29→21:37)
[2020-08-06] MEDS: LANSOPRAZOLE 30 MG SOLUTAB FEEDTUBE SCH (10:29)
[2020-08-06] MEDS: METOPROLOL TARTRATE 25 MG TAB PO SCH ×2 (10:29→21:32)
[2020-08-06] MEDS: predniSONE 5 MG TAB PO SCH (10:30)
[2020-08-06] MEDS: ENOXAPARIN 40 MG/0.4 ML INJ SUB-Q SCH (21:33)
[2020-08-07] MEDS: INSULIN LISPRO 100 UNIT/ML SUB-Q SCH ×4 (08:48→22:30)
--- NOTE | 2020-08-07 10:09 | Discharge Summary ---
Providers - Providers Date of Admission: 05/09/20 15:13 Date of discharge: 08/07/20 Attending physician: AMILCAR ELIZABETH 05/10/20 15:30 Consult to Physician [CONS] Routine Comment: Consulting Provider: BERHANE CUENCA Physician Instructions: Reason For Exam: covid positive 05/11/20 05:59 Consult to Physician [CONS] Routine Comment: Consulting Provider: HALEY LONG Physician Instructions: Reason For Exam: respiratory failure 05/21/20 18:41 Consult to Dietitian/Nutrition [CONS] Routine Physician Instructions: Reason For Exam: Reason for Consult: Evaluate nutritional intake 05/21/20 18:43 Consult to Dietitian/Nutrition [CONS] Routine Physician Instructions: Reason For Exam: Reason for Consult: Evaluate nutritional intake Consult to Dietitian/Nutrition [CONS] Routine Physician Instructions: Reason For Exam: Reason for Consult: Write/Manage Tube Feeding 05/21/20 20:33 Consult to Dietitian/Nutrition [CONS] Routine Physician Instructions: Reason For Exam: Reason for Consult: Evaluate nutritional intake 06/04/20 15:54 Consult to PICC Line RN [CONS] Urgent Reason For Exam: vasoactive medication Type Line:: PICC 06/08/20 10:07 Consult to PICC Line RN [CONS] Urgent Reason For Exam: vasopressors Type Line:: PICC 06/09/20 18:39 Consult to Wound/ET Nurse [CONS] Routine Reason For Exam: wound eval- sacrum 06/14/20 12:54 Consult to Physician [CONS] Stat Comment: sopke with dr. carpenter/ jose elias Consulting Provider: BERHANE CUENCA Physician Instructions: Reason For Exam: fever 06/20/20 18:46 Consult to Physician [CONS] Routine Comment: Consulting Provider: ANGELINA ESPINOZA Physician Instructions: Reason For Exam: Pneumothorax 06/22/20 15:52 Consult to Physician [CONS] Routine Comment: Consulting Provider: BOB MEZA Physician Instructions: Reason For Exam: Acute anemia 07/14/20 08:44 Physical Therapy Evaluation and Treat [CONS] Routine Comment: Reason For Exam: doconditioning 07/14/20 08:46 Occupational Therapy Evaluate and Treat [CONS] Routine Comment: Reason For Exam: deconditioning 07/14/20 13:23 Speech Therapy Evaluation and Treat [CONS] Routine Reason For Exam: dyspagia 07/15/20 14:42 Consult to Physician [CONS] Routine Comment: called candice/ jose elias Consulting Provider: MARIA DE JESUS CALZADA Physician Instructions: Reason For Exam: Delirium 07/19/20 12:09 Speech Therapy Evaluation and Treat [CONS] Routine Reason For Exam: SWALLOW EVALUATION 07/26/20 19:07 Physical Therapy Evaluation and Treat [CONS] Routine Comment: PT eval /DC needs Reason For Exam: Reconsult/patient stable respiratory status 07/27/20 15:12 Physical Therapy Evaluation and Treat [CONS] Routine Comment: Reason For Exam: debility Date of last referral: 07/27/20 07/31/20 17:35 Occupational Therapy Evaluate and Treat [CONS] Routine Comment: Reason For Exam: PT OT EVAL /RX Physical Therapy Evaluation and Treat [CONS] Routine Comment: Reason For Exam: PT ,OT EVAL /RX 08/03/20 03:36 Consult to Wound/ET Nurse [CONS] Routine Reason For Exam: wound miguelangel 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 Hospitalization Condition: Stable Hospital course: Final diagnosis: Positive COVID-19 test; 05/10/2020 Negative COVID-19 test; 06/30/2020 --Acute hypoxemic respiratory failure; on 8 L oxygen Oxygen titrated to 3 to 4 L, Pulmonary following Inpatient rehab has accepted for rehab therapy Pending COVID-19 test --Pneumothorax status post right chest tube Chest tube removed 07/23/2020 Post removal chest x-ray no pneumothorax Patient is requiring 3 to 4 L nasal cannula --Severe hypokalemia; resolved --Sinus tachycardia: Significantly improved Supportive care --Severe COVID-19 bilateral pneumonia Coronavirus protocol: Completed steroids and remdesivir therapy, isolation precautions, Received management per COVID-19 protocol Repeat ivory PCR test negative on 06/30/2020 Isolation discontinued --Elevated D-dimers; Patient had CTA chest ; negative for PE, patient already had lower extremity venous Doppler which was negative for DVT We will discontinue empiric therapeutic Lovenox, and change to DVT prophylaxis dose 40 mg subcu daily --Pseudomonas bacteremia; ID following, completed cefepime Monitor off antibiotics --Severe sepsis/septic shock, monitor off pressors Completed cefepime, monitor off antibiotics -- Acute kidney injury (SEN) , likely vasomotor nephropathy Resolved, avoid nephrotoxins --Acute on chronic anemia Guaiac test positive, GI evaluated the patient Patient H&H is normal range now Hb 11.8 -- Elevated liver function tests; resolved LFTs within normal limits --Colonic distention GI evaluated colonic distention resolved recommend stool softeners -- DVT prophylaxis On therapeutic Lovenox Chest tube removed Patient on 10 L nasal cannula oxygen, wean as tolerated Elevated D-dimers, on empiric therapeutic Lovenox CTA chest negative for PE,LE DVT negative, therapeutic Lovenox DC'd Changed to prophylactic Lovenox Disposition: [id number]PT [facility] Time spent for discharge: 35 min Core Measure Documentation - Palliative Care Palliative Care/ Comfort Measures: Not Applicable - Core Measures Any of the following diagnoses?: none Exam - Constitutional Vitals: Temp Pulse Resp BP Pulse Ox 98.1 F 109 H 20 120/63 95 08/07/20 08:46 08/07/20 08:46 08/07/20 08:46 08/07/20 08:46 08/07/20 08:46 General appearance: Present: no acute distress, well-nourished - EENT Eyes: Present: PERRL, EOM intact - Neck Neck: Present: supple, normal ROM - Respiratory Respiratory effort: normal Respiratory: bilateral: diminished, rhonchi, negative: rales, wheezing - Cardiovascular Rhythm: regular Heart Sounds: Present: S1 & S2 - Extremities Extremities: no ischemia - Abdominal General gastrointestinal: Present: soft, non-tender, non-distended, normal bowel sounds - Integumentary Integumentary: Present: clear, warm - Musculoskeletal Musculoskeletal: strength equal bilaterally, generalized weakness - Psychiatric Psychiatric: appropriate mood/affect - Neurologic Neurologic: moves all extremities Plan Activity: advance as tolerated, fall precautions Diet: regular Special Instructions: physical therapy, occupational therapy Follow up with: PRIMARY CARE, [Primary Care Provider] - 3-5 Days
--- NOTE | 2020-08-07 10:12 | Progress Note ---
Assessment and Plan Assessment and plan: Positive COVID-19 test; 05/10/2020 Negative COVID-19 test; 06/30/2020 --Severe COVID-19 bilateral pneumonia Coronavirus protocol: Completed steroids and remdesivir therapy, isolation precautions, Received management per COVID-19 protocol Repeat ivory PCR test negative on 06/30/2020 Isolation discontinued --Acute hypoxemic respiratory failure; on 8 L oxygen Oxygen titrated to 3 to 4 L, Pulmonary following Inpatient rehab has accepted for rehab therapy Pending COVID-19 test --Pneumothorax status post right chest tube Chest tube removed 07/23/2020 Post removal chest x-ray no pneumothorax Patient is requiring 3 to 4 L nasal cannula --Severe hypokalemia; resolved --Sinus tachycardia: Significantly improved, Supportive care --Elevated D-dimers; Patient had CTA chest ; negative for PE, patient already had lower extremity venous Doppler which was negative for DVT We will discontinue empiric therapeutic Lovenox, and change to DVT prophylaxis dose 40 mg subcu daily --Pseudomonas bacteremia; ID following, completed cefepime Monitor off antibiotics --Severe sepsis/septic shock, monitor off pressors Completed cefepime, monitor off antibiotics -- Acute kidney injury (SEN) , likely vasomotor nephropathy Resolved, avoid nephrotoxins --Acute on chronic anemia Guaiac test positive, GI evaluated the patient Patient H&H is normal range now Hb 11.8 -- Elevated liver function tests; resolved LFTs within normal limits --Colonic distention GI evaluated colonic distention resolved recommend stool softeners -- DVT prophylaxis On therapeutic Lovenox Chest tube removed Patient on 10 L nasal cannula oxygen, wean as tolerated Elevated D-dimers, on empiric therapeutic Lovenox CTA chest negative for PE,LE DVT negative, therapeutic Lovenox DC'd Changed to prophylactic Lovenox Discharge planning per case management CM reports that IRU is evaluating the patient for placement Patient is medically stable for discharge awaiting placement 07/23/2020; patient remains on high flow oxygen, wean oxygen as tolerated, severe hypokalemia Replenish per protocol monitor levels 07/24/2020; patient had chest tube removal yesterday 07/23/2019 and, post removal chest x-ray no pneumothorax no acute abnormalities Patient feels slightly better continues to require high flow oxygen Wean as tolerated, physical and occupational therapy, DC planning 07/26/2020; patient on 3 L nasal cannula oxygen, patient feels better 07/27/2020; patient was saturating well on 3 L of nasal cannula oxygen, however today patient is on high flow oxygen 15 L Complains of some congestion, wean oxygen levels to 3-5 as tolerated Discharge planning LTAC has refused patient,Possible home with home health versus placement when medically stable 07/28/2020; continue to wean oxygen, patient is on 10 L, awaiting placement 07/29/2020; continues to be on 10 L nasal cannula oxygen, wean as tolerated Patient is on empiric therapeutic dose Lovenox, due to elevated D-dimers Patient is stable for CTA chest today, follow the report and adjust Lovenox as needed DC planning per case management, with pending placement 07/30/2020; patient feels slightly better, oxygen reduced to 8 L of nasal cannula Will check PT OT, pending placement 07/31/2020 Patient on 8 L of nasal cannula oxygen 08/03/2020; patient's oxygen requirement has come down to 3-4 and half liters nasal cannula Will try to wean oxygen as tolerated, respiratory therapist assisting to reach the goal Possible discharge home in 1 to 2 days if stable Plan of care reviewed with the patient and his nurse 08/04/2020; patient is requiring 3 to 4 L nasal cannula oxygen, case management to set up home oxygen Patient is hemodynamically and clinically stable for discharge, pending placement [facility] And of care reviewed with the patient and his nurse as well as the case management 08/05/2020 ; COVID-19 test requested , patient is hemodynamically and clinically stable for discharge Patient is requiring 4 L of nasal cannula oxygen . medically stable for discharge 08/06/2020; patient is hemodynamically and clinically stable for discharge and transfer to IRU unit today Pre-discharge COVID-19 test is negative, pending insurance authorization 08/07/20; patient is accepted by inpatient rehab unit for admission, pending insurance authorization Stable for discharge History Interval history: I seen and examined the patient at the bedside this morning Patient's chart and medications reviewed Patient feels slightly better still requiring nasal cannula oxygen Patient is accepted for acute rehab pending insurance approval Patient has no new complaints Vital signs reviewed Hospitalist Physical - Constitutional Vitals: Temp Pulse Resp BP Pulse Ox 98.1 F 109 H 20 120/63 95 08/07/20 08:46 08/07/20 08:46 08/07/20 08:46 08/07/20 08:46 08/07/20 08:46 General appearance: Present: no acute distress, well-nourished - EENT Eyes: Present: PERRL, EOM intact - Neck Neck: Present: supple, normal ROM - Respiratory Respiratory effort: normal Respiratory: bilateral: diminished, negative: rales, rhonchi, wheezing - Cardiovascular Rhythm: regular Heart Sounds: Present: S1 & S2 - Extremities Extremities: no ischemia, No edema - Abdominal General gastrointestinal: soft, non-tender, non-distended, normal bowel sounds - Integumentary Integumentary: Present: clear, warm - Psychiatric Psychiatric: appropriate mood/affect, cooperative - Neurologic Neurologic: moves all extremities HEART Score - HEART Score Troponin: Troponin T 0.015 ng/mL (0.00-0.029) 07/07/20 10:00 Results - Labs CBC & Chem 7: 08/02/20 05:55 08/03/20 05:18 Labs: Laboratory Last Values WBC 12.4 K/mm3 (4.5-11.0) H 08/02/20 05:55 RBC 3.85 M/mm3 (3.65-5.03) 08/02/20 05:55 Hgb 12.3 gm/dl (11.8-15.2) 08/02/20 05:55 Hct 37.9 % (35.5-45.6) 08/02/20 05:55 MCV 99 fl (84-94) H 08/02/20 05:55 MCH 32 pg (28-32) 08/02/20 05:55 MCHC 33 % (32-34) 08/02/20 05:55 RDW 16.9 % (13.2-15.2) H 08/02/20 05:55 Plt Count 267 K/mm3 (140-440) 08/02/20 05:55 Lymph % (Auto) 18.3 % (13.4-35.0) 08/02/20 05:55 Green % (Auto) 9.7 % (0.0-7.3) H 08/02/20 05:55 Eos % (Auto) 3.3 % (0.0-4.3) 08/02/20 05:55 Baso % (Auto) 0.4 % (0.0-1.8) 08/02/20 05:55 Lymph # (Auto) 2.3 K/mm3 (1.2-5.4) 08/02/20 05:55 Green # (Auto) 1.2 K/mm3 (0.0-0.8) H 08/02/20 05:55 Eos # (Auto) 0.4 K/mm3 (0.0-0.4) 08/02/20 05:55 Baso # (Auto) 0.1 K/mm3 (0.0-0.1) 08/02/20 05:55 Add Manual Diff Complete 07/13/20 08:31 Total Counted 100 07/13/20 08:31 Seg Neutrophils % 68.3 % (40.0-70.0) 08/02/20 05:55 Seg Neuts % (Manual) 96.0 % (40.0-70.0) H 07/13/20 08:31 Band Neutrophils % 0 % 07/13/20 08:31 Lymphocytes % (Manual) 2.0 % (13.4-35.0) L 07/13/20 08:31 Reactive Lymphs % (Man) 0 % 07/13/20 08:31 Monocytes % (Manual) 2.0 % (0.0-7.3) 07/13/20 08:31 Eosinophils % (Manual) 0 % (0.0-4.3) 07/13/20 08:31 Basophils % (Manual) 0 % (0.0-1.8) 07/13/20 08:31 Metamyelocytes % 0 % 07/13/20 08:31 Myelocytes % 0 % 07/13/20 08:31 Promyelocytes % 0 % 07/13/20 08:31 Blast Cells % 0 % 07/13/20 08:31 Nucleated RBC % Not Reportable 07/13/20 08:31 Seg Neutrophils # 8.5 K/mm3 (1.8-7.7) H 08/02/20 05:55 Seg Neutrophils # Man 20.4 K/mm3 (1.8-7.7) H 07/13/20 08:31 Band Neutrophils # 0.0 K/mm3 07/13/20 08:31 Lymphocytes # (Manual) 0.4 K/mm3 (1.2-5.4) L 07/13/20 08:31 Abs React Lymphs (Man) 0.0 K/mm3 07/13/20 08:31 Monocytes # (Manual) 0.4 K/mm3 (0.0-0.8) 07/13/20 08:31 Eosinophils # (Manual) 0.0 K/mm3 (0.0-0.4) 07/13/20 08:31 Basophils # (Manual) 0.0 K/mm3 (0.0-0.1) 07/13/20 08:31 Metamyelocytes # 0.0 K/mm3 07/13/20 08:31 Myelocytes # 0.0 K/mm3 07/13/20 08:31 Promyelocytes # 0.0 K/mm3 07/13/20 08:31 Blast Cells # 0.0 K/mm3 07/13/20 08:31 WBC Morphology Not Reportable 07/13/20 08:31 Hypersegmented Neuts Not Reportable 07/13/20 08:31 Hyposegmented Neuts Not Reportable 07/13/20 08:31 Hypogranular Neuts Not Reportable 07/13/20 08:31 Smudge Cells Not Reportable 07/13/20 08:31 Toxic Granulation Not Reportable 07/13/20 08:31 Toxic Vacuolation Not Reportable 07/13/20 08:31 Dohle Bodies Not Reportable 07/13/20 08:31 Pelger-Huet Anomaly Not Reportable 07/13/20 08:31 Jason Rods Not Reportable 07/13/20 08:31 Platelet Estimate Consistent w auto 07/13/20 08:31 Clumped Platelets Not Reportable 07/13/20 08:31 Plt Clumps, EDTA Not Reportable 07/13/20 08:31 Large Platelets Not Reportable 07/13/20 08:31 Giant Platelets Not Reportable 07/13/20 08:31 Platelet Satelliting Not Reportable 07/13/20 08:31 Plt Morphology Comment Not Reportable 07/13/20 08:31 RBC Morphology Not Reportable 07/13/20 08:31 Dimorphic RBCs Not Reportable 07/13/20 08:31 Polychromasia Not Reportable 07/13/20 08:31 Hypochromasia Not Reportable 07/13/20 08:31 Poikilocytosis Not Reportable 07/13/20 08:31 Anisocytosis Not Reportable 07/13/20 08:31 Microcytosis Not Reportable 07/13/20 08:31 Macrocytosis Not Reportable 07/13/20 08:31 Spherocytes Not Reportable 07/13/20 08:31 Pappenheimer Bodies Not Reportable 07/13/20 08:31 Sickle Cells Not Reportable 07/13/20 08:31 Target Cells Not Reportable 07/13/20 08:31 Tear Drop Cells Not Reportable 07/13/20 08:31 Ovalocytes Not Reportable 07/13/20 08:31 Stomatocytes Few 07/13/20 08:31 Helmet Cells Not Reportable 07/13/20 08:31 Sinclair-New Home Bodies Not Reportable 07/13/20 08:31 Vanlue Rings Not Reportable 07/13/20 08:31 Izabella Cells Not Reportable 07/13/20 08:31 Bite Cells Not Reportable 07/13/20 08:31 Crenated Cell Not Reportable 07/13/20 08:31 Elliptocytes Not Reportable 07/13/20 08:31 Acanthocytes (Spur) Not Reportable 07/13/20 08:31 Rouleaux Not Reportable 07/13/20 08:31 Hemoglobin C Crystals Not Reportable 07/13/20 08:31 Schistocytes Not Reportable 07/13/20 08:31 Malaria parasites Not Reportable 07/13/20 08:31 Josue Bodies Not Reportable 07/13/20 08:31 Hem Pathologist Commnt No 07/13/20 08:31 PT 11.8 Sec. (12.2-14.9) L 06/22/20 14:29 INR 0.88 (0.87-1.13) 06/22/20 14:29 APTT 23.5 Sec. (24.2-36.6) L 06/22/20 14:29 D-Dimer 1887.82 ng/mlDDU (0-234) H 05/20/20 08:16 Heparin Anti-Xa Level 0.37 U.I./ml (0.3-0.7) 07/02/20 16:08 ABG pH 7.477 (7.320-7.450) H 07/13/20 13:52 POC ABG pCO2 54.4 mmHg (32.0-48.0) H 07/13/20 13:52 ABG pCO2 53.1 mm Hg 07/08/20 Unknown POC ABG pO2 126.8 mmHg (83-108) H 07/13/20 13:52 ABG pO2 75.3 mm Hg (80.0-90.0) L 07/08/20 Unknown POC ABG HCO3 39.3 07/13/20 13:52 ABG HCO3 34.3 mmol/L (20.0-26.0) H 07/08/20 Unknown ABG O2 Saturation 96.5 % (95.0-99.0) 07/08/20 Unknown ABG O2 Content 13.5 (0.0-44) 07/08/20 Unknown POC ABG Base Excess 13.8 07/13/20 13:52 ABG Base Excess 8.7 mmol/L (-2.0-3.0) H 07/08/20 Unknown ABG Hemoglobin 11.5 (12.0-17.5) L 07/13/20 13:52 ABG Oxyhemoglobin 97.7 (94-98) 07/13/20 13:52 ABG Carboxyhemoglobin 2.4 % (0.0-5.0) 07/08/20 Unknown ABG Methemoglobin 0 (0.0-1.5) 07/13/20 13:52 ABG Sodium 136.2 mmol/L (136.0-145.0) 07/13/20 13:52 ABG Potassium 3.2 mmol/L (3.40-4.50) L 07/13/20 13:52 ABG Chloride 92.0 mmol/L (98-107) L 07/13/20 13:52 ABG Glucose 169 mg/dL (65-95) H 07/13/20 13:52 Oxyhemoglobin 93.7 % (95.0-99.0) L 07/08/20 Unknown Carboxyhemoglobin 1.2 (0.5-1.5) 07/13/20 13:52 FiO2 45 07/13/20 13:52 Sodium 142 mmol/L (137-145) 08/03/20 05:18 Potassium 3.8 mmol/L (3.6-5.0) D 08/03/20 05:18 Chloride 100.0 mmol/L (98-107) 08/03/20 05:18 Carbon Dioxide 32 mmol/L (22-30) H D 08/03/20 05:18 Anion Gap 14 mmol/L 08/03/20 05:18 BUN 14 mg/dL (9-20) 08/03/20 05:18 Creatinine 0.4 mg/dL (0.8-1.3) L 08/03/20 05:18 Estimated GFR > 60 ml/min 08/03/20 05:18 BUN/Creatinine Ratio 35 % 08/03/20 05:18 Glucose 100 mg/dL (75-100) 08/03/20 05:18 POC Glucose 120 mg/dL (70-105) H 08/07/20 08:15 Lactic Acid 0.80 mmol/L (0.7-2.0) 07/13/20 15:45 Calcium 9.3 mg/dL (8.4-10.2) 08/03/20 05:18 Phosphorus 3.10 mg/dL (2.5-4.5) 06/15/20 04:00 Magnesium 2.00 mg/dL (1.7-2.3) 07/24/20 05:05 Ferritin 1496.0 ng/mL (30.0-300.0) H 06/14/20 11:50 Total Bilirubin 0.30 mg/dL (0.1-1.2) 08/02/20 05:55 Direct Bilirubin 0.6 mg/dL (0-0.2) H 05/11/20 07:30 Indirect Bilirubin 0.9 mg/dL 05/11/20 07:30 AST 37 units/L (5-40) 08/02/20 05:55 ALT 118 units/L (7-56) H 08/02/20 05:55 Alkaline Phosphatase 88 units/L (35-129) 08/02/20 05:55 Lactate Dehydrogenase 705 units/L (91-180) H 05/20/20 08:16 Troponin T 0.015 ng/mL (0.00-0.029) 07/07/20 10:00 C-Reactive Protein 3.10 mg/dL (0.00-1.30) H 05/20/20 08:16 Total Protein 6.4 g/dL (6.3-8.2) 08/02/20 05:55 Albumin 3.3 g/dL (3.9-5) L 08/02/20 05:55 Albumin/Globulin Ratio 1.1 % 08/02/20 05:55 Triglycerides 452 mg/dL (2-149) H 06/30/20 07:00 Lipase 86 units/L (13-60) H 06/29/20 09:36 Procalcitonin 2.15 ng/mL (<0.15) 07/15/20 05:31 Arterial Blood Glucose 169 mg/dL (65-95) H 07/13/20 13:52 Arterial Blood Ionized Calcium 4.8 mg/dL (4.6-5.3) 07/13/20 13:52 Urine Color Fauzia (Yellow) 05/10/20 Unknown Urine Turbidity Clear (Clear) 05/10/20 Unknown Urine pH 5.0 (5.0-7.0) 05/10/20 Unknown Ur Specific Pike 1.019 (1.003-1.030) 05/10/20 Unknown Urine Protein 100 mg/dl mg/dL (Negative) 05/10/20 Unknown Urine Glucose (UA) Neg mg/dL (Negative) 05/10/20 Unknown Urine Ketones Neg mg/dL (Negative) 05/10/20 Unknown Urine Blood Lg (Negative) 05/10/20 Unknown Urine Nitrite Neg (Negative) 05/10/20 Unknown Urine Bilirubin Neg (Negative) 05/10/20 Unknown Urine Urobilinogen 2.0 mg/dL (<2.0) 05/10/20 Unknown Ur Leukocyte Esterase Neg (Negative) 05/10/20 Unknown Urine WBC (Auto) 11.0 /HPF (0.0-6.0) H 05/10/20 Unknown Urine RBC (Auto) 2.0 /HPF (0.0-6.0) 05/10/20 Unknown U Epithel Cells (Auto) 1.0 /HPF (0-13.0) 05/10/20 Unknown Urine Bacteria (Auto) 1+ /HPF (Negative) 05/10/20 Unknown Urine Mucus Few /HPF 05/10/20 Unknown Plasma/Serum Alcohol < 0.01 % (0-0.07) 05/09/20 14:20 Coronavirus (PCR) Negative (Negative) 08/06/20 09:36 Hepatitis A Ab Total Nonreactive (Nonreactive) 07/09/20 Unknown Hep B Core Total Ab Nonreactive (Nonreactive) 07/09/20 Unknown Hepatitis C RNA Quant See scanned result 07/09/20 Unknown SARS-CoV-2 IgG Ab Reactive (NonReactive) A 05/11/20 07:30 Blood Type B POSITIVE 06/21/20 14:18 Antibody Screen Negative 06/21/20 14:18 Crossmatch See Detail 06/21/20 14:18 - Diagnostic Impressions Diagnostic Impressions: Echocardiogram 05/20/20 13:02 Transthoracic Echocardiogram Indication: CHF BP: 97/73 Conclusions *The study quality is technically very difficult and limited. *The left ventricular chamber size, wall thickness and systolic function are within normal limits. There are no wall motion abnormalities observed. Ejection fraction is normal. *The estimated ejection fraction is 60-65%. *The pericardium appears normal. Findings Procedure Info: The study quality is technically difficult. Left Ventricle: The left ventricular chamber size, wall thickness and systolic function are within normal limits. There are no wall motion abnormalities observed. Ejection fraction is normal. The estimated ejection fraction is 60-65%. Abnormal left ventricular diastolic filling is observed, consistent with impaired relaxation. Left Atrium: The left atrium is normal in size with no visual thrombus identified. Right Ventricle: The right ventricle is not well visualized. Right Atrium: The right atrium is not well visualized. Aortic Valve: The aortic valve is trileaflet. The leaflets are thin with normal excursion. There is no aortic stenosis or regurgitation present. Mitral Valve: The mitral valve appears normal in structure and function. Tricuspid Valve: The tricuspid valve appears normal in structure and function. Unable to estimate the right ventricular systolic pressure. Pulmonic Valve: The pulmonic valve is not well visualized. There is no evidence of pulmonic regurgitation. There is no pulmonic stenosis. Pericardium: The pericardium appears normal. Pulmonary Artery: The main pulmonary artery is not well visualized. Venous: The inferior vena cava appears normal in size. Measurements Chambers 2D Name Value Normal Range IVSd (2D) 0.83 cm (0.6 - 1.1) LVPWd (2D) 0.83 cm (0.6 - 1.1) LVIDd (2D) 3.88 cm (3.7 - 5.6) LVIDs (2D) 2.46 cm (2 - 3.8) LV FS (2D) 36.52 % - EF Teichholz (2D) 66.97 % - Ao root diameter (2D) 3.47 cm (2 - 3.7) Volumes/Mass Name Value Normal Range LA ESV SP 4CH (A/L) 22.4 ml - LA ESV SP 2CH (A/L) 22.89 ml - LA ESV BP (A/L) 23.06 ml - LA ESV SP 4CH (MOD) 21.09 ml - LA ESV SP 2CH (MOD) 22.44 ml - Diastolic/Systolic Function Name Value Normal Range MV E-wave Vmax 0.48 m/sec - MV deceleration time 156.3 msec - MV A-wave Vmax 0.59 m/sec - MV E:A ratio 0.81 ratio - Aortic Valve Name Value Normal Range AV Vmax 0.97 m/sec - AV VTI 14.49 cm - AV peak gradient 3.73 mmHg - AV mean gradient 1.89 mmHg - LVOT diameter 2.09 cm - LVOT Vmax 0.72 m/sec - LVOT VTI 10.21 cm - LVOT peak gradient 2.05 mmHg - LVOT mean gradient 1.03 mmHg - SV LVOT 35.17 ml - INNA (continuity Vmax) 2.55 cm2 - INNA (continuity VTI) 2.43 cm2 - Tricuspid Valve Name Value Normal Range TV E-wave Vmax 0.37 m/sec - Pulmonic Valve/Qp:Qs Name Value Normal Range PV Vmax 0.72 m/sec - PV peak gradient 2.06 mmHg - RVOT Vmax 0.85 m/sec - RVOT VTI 9.89 cm - RVOT peak gradient 2.9 mmHg - PV acceleration time 72.31 msec - Cantor/IV: Voiding Method Urinal IV Catheter Type [Right Wrist] INT / Saline Lock IV Catheter Type [Right Upper Peripheral IV arm] IV Catheter Type [Right CVL Internal Jugular] IV Catheter Type [Right Peripheral IV Forearm] IV Catheter Type [Left Forearm INT / Saline Lock ] IV Catheter Type [Left Wrist] INT / Saline Lock IV Catheter Type [Right Hand] INT / Saline Lock IV Catheter Type [Left Hand] INT / Saline Lock IV Catheter Type [Left Peripheral IV Antecubital] Active Medications - Current Medications Current Medications: Generic Name Dose Route Start Last Admin Trade Name Freq PRN Reason Stop Dose Admin Acetaminophen 650 mg 08/07/20 10:06 Acetaminophen 325 Mg Tab PO Q4H PRN Pain, Mild (1-3) Alprazolam 0.25 mg 05/20/20 17:53 07/26/20 09:37 Alprazolam 0.25 Mg Tab PO 0.25 mg Q8H PRN Administration Anxiety Lipase/Protease/Amylase 1 each 05/22/20 13:01 Lipase 10,500/Protease 25,000/Amylase 43,750 (Units) Dr Newell FEEDTUBE PRN PRN For Clogged Feeding Tube Bisacodyl 10 mg 07/14/20 11:00 Bisacodyl 10 Mg Rect Supp RI BID PRN Laxative Effect Enoxaparin Sodium 40 mg 07/29/20 22:00 08/06/20 21:33 Enoxaparin 40 Mg/0.4 Ml Inj SUB-Q 40 mg QDAY@2200 [facility] Administration Protocol Folic Acid 1 mg 05/09/20 15:36 08/06/20 10:29 Folic Acid 1 Mg Tab PO 1 mg QDAY DESIRE Administration Guaifenesin 600 mg 07/19/20 23:00 08/06/20 21:37 Guaifenesin Er 600 Mg Tab PO 600 mg BID DESIRE Administration Hydrophilic Ointment 1 applic 05/21/20 20:33 Lip Therapy Vaseline TP Q2HR PRN Dry Lips Insulin Human Lispro 0 unit 07/31/20 07:30 08/07/20 08:48 Insulin Lispro 100 Unit/Ml SUB-Q Not Given ACHS [facility] Protocol Lansoprazole 30 mg 06/28/20 10:00 08/06/20 10:29 Lansoprazole 30 Mg Solutab FEEDTUBE 30 mg QDAY DESIRE Administration Metoprolol Tartrate 5 mg 07/02/20 17:17 07/08/20 14:38 Metoprolol Tartrate 5 Mg/5 Ml Inj IV 5 mg Q6HR PRN Administration Tachyarrhythmias Metoprolol Tartrate 12.5 mg 07/17/20 12:00 08/06/20 21:32 Metoprolol Tartrate 25 Mg Tab PO 12.5 mg BID [facility] Administration Multi-Ingred Cream/Lotion/Oil/Oint 1 applic 05/21/20 20:33 Mineral Oil/Petrolatum, White Ophth Oint 3.5 Gm OU Q4HR PRN Dry Eye(s) Olanzapine 5 mg 07/17/20 22:00 08/06/20 21:32 Olanzapine 5 Mg Tab PO 5 mg QHS DESIRE Administration Phenobarbital 32.4 mg 07/04/20 22:00 08/06/20 21:32 Phenobarbital 32.4 Mg Tab PO 32.4 mg BID DESIRE Administration Prednisone 2.5 mg 08/07/20 10:00 Prednisone 5 Mg Tab PO 08/09/20 10:01 QDAY DESIRE Quetiapine Fumarate 200 mg 07/16/20 10:00 08/06/20 10:29 Quetiapine 200 Mg Tab PO 200 mg QAM DESIRE Administration Senna 17.2 mg 07/14/20 11:00 08/03/20 16:46 Sennosides 8.6 Mg Tab PO 8.6 mg BID PRN Administration Laxative Effect Nutrition/Malnutrition Assess - Dietary Evaluation Nutrition/Malnutrition Findings: Nutrition Notes Start: 05/17/20 14:10 Freq: Status: Active Protocol: Document 08/04/20 11:40 CECY (Rec: 08/04/20 11:45 CECY [id number]) Co-Sign 08/04/20 11:40 DANA Nutrition Notes Initial or Follow up Reassessment Current Diagnosis Decubitus(Pressure Ulcer), Sepsis,Respiratory Failure Other Pertinent Diagnosis Bilat pneu, COVID-19 (-), EtOH dependence Current Diet Regular diet Labs/Tests Cr 0.4 BG 100 POC 167 Pertinent Medications Folic Acid Prednisone Height 6 ft Weight 98.2 kg Usual Body Weight 118 kg [place] Body Weight (kg) 80.90 BMI 29.3 Weight Status Overweight Subjective/Other Information F/u intakes, ONS, and Sammy. Pt reported eating very well, drinking ONS and Sammy. Percent of energy/protein needs met: 100%/100% Burn Absent Trauma Absent GI Symptoms None Current % PO Good (75-100%) Minimum of two criteria Yes Interpretation of Weight Loss (severe) >5% in 1 month Muscle Mass Mild Depletion (non-severe) #4 Nutrition Diagnosis Food and nutrition-related knowledge deficit As Evidenced by Signs and Symptoms Pt had no questions Diagnosis Progress(for reassessment Resolved documentation) #3 Nutrition Diagnosis Malnutrition Diagnosis Progress(for reassessment Continues documentation) #2 Nutrition Diagnosis Increased nutrient needs ( specify in comment below) Diagnosis Progress(for reassessment Continues documentation) Is patient on ventilator? No Is Patient Ambulatory and/or Out of Bed No REE-(Alverda-St. Jeor-confined to bed) 2253.720 Kcal/Kg value to use for calculation 21 Approximate Energy Requirements Using 2 kcal/Kg Calculation Used for Recommendations Kcal/kg Additional Notes Protein: 106-134 g (1.2-1.5 g/ kg AdBW 89 kg) Fluid: 1ml/kcal Nutrition Intervention Change Diet Order: Continue diet Add Supplement/Snack (indicate name/kcal Ensure High Protein daily /protein ) Sammy BID Provides kCal: 350 Provides Protein (gm) 21 Goal #1 Meet at least 75% protein and energy needs via PO Goal #2 ONS tolerance Goal #3 Intake of Sammy BID Anticipated Discharge Needs: Regular, healthful diet and Sammy BID and increased protein intake until pressure ulcer is healed. Follow-Up By: 08/11/20 Additional Comments F/u intakes, ONS and Sammy tolerance/intake
[2020-08-07] MEDS: LANSOPRAZOLE 30 MG SOLUTAB FEEDTUBE SCH (10:57)
[2020-08-07] MEDS: METOPROLOL TARTRATE 25 MG TAB PO SCH ×2 (10:57→22:25)
[2020-08-07] MEDS: QUEtiapine 200 MG TAB PO SCH (10:57)
[2020-08-07] MEDS: FOLIC ACID 1 MG TAB PO SCH (10:57)
[2020-08-07] MEDS: PHENobarbital 32.4 MG TAB PO SCH ×2 (10:57→22:25)
[2020-08-07] MEDS: guaiFENesin ER 600 MG TAB PO SCH ×2 (10:57→22:25)
[2020-08-07] MEDS: predniSONE 5 MG TAB PO SCH (10:57)
[2020-08-07] MEDS: ENOXAPARIN 40 MG/0.4 ML INJ SUB-Q SCH (22:25)
--- NOTE | 2020-08-08 08:20 | Progress Note ---
Assessment and Plan Assessment and plan: Positive COVID-19 test; 05/10/2020 Negative COVID-19 test; 06/30/2020 --Severe COVID-19 bilateral pneumonia Coronavirus protocol: Completed steroids and remdesivir therapy, isolation precautions, Received management per COVID-19 protocol Repeat ivory PCR test negative on 06/30/2020 Isolation discontinued --Acute hypoxemic resp failure; on 4 L NC saturating well Oxygen titrated to 3 to 4 L, Pulmonary following Inpatient rehab has accepted for rehab therapy Pending COVID-19 test --Pneumothorax status post right chest tube Chest tube removed 07/23/2020 Post removal chest x-ray no pneumothorax Patient is requiring 3 to 4 L nasal cannula --Severe hypokalemia; resolved --Sinus tachycardia: Significantly improved, Supportive care --Elevated D-dimers; Patient had CTA chest ; negative for PE, patient already had lower extremity venous Doppler which was negative for DVT We will discontinue empiric therapeutic Lovenox, and change to DVT prophylaxis dose 40 mg subcu daily --Pseudomonas bacteremia; ID following, completed cefepime Monitor off antibiotics --Severe sepsis/septic shock, monitor off pressors Completed cefepime, monitor off antibiotics -- Acute kidney injury (SEN) , likely vasomotor nephropathy Resolved, avoid nephrotoxins --Acute on chronic anemia Guaiac test positive, GI evaluated the patient Patient H&H is normal range now Hb 11.8 -- Elevated liver function tests; resolved LFTs within normal limits --Colonic distention GI evaluated colonic distention resolved recommend stool softeners -- DVT prophylaxis On therapeutic Lovenox Chest tube removed Patient on 10 L nasal cannula oxygen, wean as tolerated Elevated D-dimers, on empiric therapeutic Lovenox CTA chest negative for PE,LE DVT negative, therapeutic Lovenox DC'd Changed to prophylactic Lovenox Discharge planning per case management CM reports that IRU is evaluating the patient for placement Patient is medically stable for discharge awaiting placement 07/23/2020; patient remains on high flow oxygen, wean oxygen as tolerated, severe hypokalemia Replenish per protocol monitor levels 07/24/2020; patient had chest tube removal yesterday 07/23/2019 and, post removal chest x-ray no pneumothorax no acute abnormalities Patient feels slightly better continues to require high flow oxygen Wean as tolerated, physical and occupational therapy, DC planning 07/26/2020; patient on 3 L nasal cannula oxygen, patient feels better 07/27/2020; patient was saturating well on 3 L of nasal cannula oxygen, however today patient is on high flow oxygen 15 L Complains of some congestion, wean oxygen levels to 3-5 as tolerated Discharge planning LTAC has refused patient,Possible home with home health versus placement when medically stable 07/28/2020; continue to wean oxygen, patient is on 10 L, awaiting placement 07/29/2020; continues to be on 10 L nasal cannula oxygen, wean as tolerated Patient is on empiric therapeutic dose Lovenox, due to elevated D-dimers Patient is stable for CTA chest today, follow the report and adjust Lovenox as needed DC planning per case management, with pending placement 07/30/2020; patient feels slightly better, oxygen reduced to 8 L of nasal cannula Will check PT OT, pending placement 07/31/2020 Patient on 8 L of nasal cannula oxygen 08/03/2020; patient's oxygen requirement has come down to 3-4 and half liters gypsy al cannula Will try to wean oxygen as tolerated, respiratory therapist assisting to reach the goal Possible discharge home in 1 to 2 days if stable Plan of care reviewed with the patient and his nurse 08/04/2020; patient is requiring 3 to 4 L nasal cannula oxygen, case management to set up home oxygen Patient is hemodynamically and clinically stable for discharge, pending placement [facility] And of care reviewed with the patient and his nurse as well as the case management 08/05/2020 ; COVID-19 test requested , patient is hemodynamically and clinically stable for discharge Patient is requiring 4 L of nasal cannula oxygen . medically stable for discharge 08/06/2020; patient is hemodynamically and clinically stable for discharge and transfer to IRU unit today Pre-discharge COVID-19 test is negative, pending insurance authorization 08/07/20; patient is accepted by inpatient rehab unit for admission, pending insurance authorization Stable for discharge 08/08/2020; patient is stable for discharge to inpatient rehab unit, pending insurance approval History Interval history: I have seen and examined the patient at the bedside this morning Patient's chart and medications reviewed Patient feels better anxious to go to rehab Inpatient rehab unit accepted the patient for admission Pending insurance authorization No new complaints, Vital signs reviewed Patient is requiring 4 L of nasal cannula oxygen Hospitalist Physical - Constitutional Vitals: Temp Pulse Resp BP Pulse Ox 98.5 F 111 H 20 105/73 98 08/08/20 04:37 08/08/20 04:37 08/08/20 04:37 08/08/20 04:37 08/08/20 04:37 General appearance: Present: no acute distress, well-nourished - EENT Eyes: Present: PERRL, EOM intact - Neck Neck: Present: supple, normal ROM - Respiratory Respiratory effort: normal Respiratory: bilateral: diminished, rhonchi, negative: rales, wheezing - Cardiovascular Rhythm: regular Heart Sounds: Present: S1 & S2 - Extremities Extremities: no ischemia, No edema - Abdominal General gastrointestinal: soft, non-tender, non-distended, normal bowel sounds - Integumentary Integumentary: Present: clear, warm - Psychiatric Psychiatric: appropriate mood/affect, cooperative - Neurologic Neurologic: CNII-XII intact, moves all extremities HEART Score - HEART Score Troponin: Troponin T 0.015 ng/mL (0.00-0.029) 07/07/20 10:00 Results - Labs CBC & Chem 7: 08/02/20 05:55 08/03/20 05:18 Labs: Laboratory Last Values WBC 12.4 K/mm3 (4.5-11.0) H 08/02/20 05:55 RBC 3.85 M/mm3 (3.65-5.03) 08/02/20 05:55 Hgb 12.3 gm/dl (11.8-15.2) 08/02/20 05:55 Hct 37.9 % (35.5-45.6) 08/02/20 05:55 MCV 99 fl (84-94) H 08/02/20 05:55 MCH 32 pg (28-32) 08/02/20 05:55 MCHC 33 % (32-34) 08/02/20 05:55 RDW 16.9 % (13.2-15.2) H 08/02/20 05:55 Plt Count 267 K/mm3 (140-440) 08/02/20 05:55 Lymph % (Auto) 18.3 % (13.4-35.0) 08/02/20 05:55 [place] % (Auto) 9.7 % (0.0-7.3) H 08/02/20 05:55 Eos % (Auto) 3.3 % (0.0-4.3) 08/02/20 05:55 Baso % (Auto) 0.4 % (0.0-1.8) 08/02/20 05:55 Lymph # (Auto) 2.3 K/mm3 (1.2-5.4) 08/02/20 05:55 [place] # (Auto) 1.2 K/mm3 (0.0-0.8) H 08/02/20 05:55 Eos # (Auto) 0.4 K/mm3 (0.0-0.4) 08/02/20 05:55 Baso # (Auto) 0.1 K/mm3 (0.0-0.1) 08/02/20 05:55 Add Manual Diff Complete 07/13/20 08:31 Total Counted 100 07/13/20 08:31 Seg Neutrophils % 68.3 % (40.0-70.0) 08/02/20 05:55 Seg Neuts % (Manual) 96.0 % (40.0-70.0) H 07/13/20 08:31 Band Neutrophils % 0 % 07/13/20 08:31 Lymphocytes % (Manual) 2.0 % (13.4-35.0) L 07/13/20 08:31 Reactive Lymphs % (Man) 0 % 07/13/20 08:31 Monocytes % (Manual) 2.0 % (0.0-7.3) 07/13/20 08:31 Eosinophils % (Manual) 0 % (0.0-4.3) 07/13/20 08:31 Basophils % (Manual) 0 % (0.0-1.8) 07/13/20 08:31 Metamyelocytes % 0 % 07/13/20 08:31 Myelocytes % 0 % 07/13/20 08:31 Promyelocytes % 0 % 07/13/20 08:31 Blast Cells % 0 % 07/13/20 08:31 Nucleated RBC % Not Reportable 07/13/20 08:31 Seg Neutrophils # 8.5 K/mm3 (1.8-7.7) H 08/02/20 05:55 Seg Neutrophils # Man 20.4 K/mm3 (1.8-7.7) H 07/13/20 08:31 Band Neutrophils # 0.0 K/mm3 07/13/20 08:31 Lymphocytes # (Manual) 0.4 K/mm3 (1.2-5.4) L 07/13/20 08:31 Abs React Lymphs (Man) 0.0 K/mm3 07/13/20 08:31 Monocytes # (Manual) 0.4 K/mm3 (0.0-0.8) 07/13/20 08:31 Eosinophils # (Manual) 0.0 K/mm3 (0.0-0.4) 07/13/20 08:31 Basophils # (Manual) 0.0 K/mm3 (0.0-0.1) 07/13/20 08:31 Metamyelocytes # 0.0 K/mm3 07/13/20 08:31 Myelocytes # 0.0 K/mm3 07/13/20 08:31 Promyelocytes # 0.0 K/mm3 07/13/20 08:31 Blast Cells # 0.0 K/mm3 07/13/20 08:31 WBC Morphology Not Reportable 07/13/20 08:31 Hypersegmented Neuts Not Reportable 07/13/20 08:31 Hyposegmented Neuts Not Reportable 07/13/20 08:31 Hypogranular Neuts Not Reportable 07/13/20 08:31 Smudge Cells Not Reportable 07/13/20 08:31 Toxic Granulation Not Reportable 07/13/20 08:31 Toxic Vacuolation Not Reportable 07/13/20 08:31 Dohle Bodies Not Reportable 07/13/20 08:31 Pelger-Huet Anomaly Not Reportable 07/13/20 08:31 Jason Rods Not Reportable 07/13/20 08:31 Platelet Estimate Consistent w auto 07/13/20 08:31 Clumped Platelets Not Reportable 07/13/20 08:31 Plt Clumps, EDTA Not Reportable 07/13/20 08:31 Large Platelets Not Reportable 07/13/20 08:31 Giant Platelets Not Reportable 07/13/20 08:31 Platelet Satelliting Not Reportable 07/13/20 08:31 Plt Morphology Comment Not Reportable 07/13/20 08:31 RBC Morphology Not Reportable 07/13/20 08:31 Dimorphic RBCs Not Reportable 07/13/20 08:31 Polychromasia Not Reportable 07/13/20 08:31 Hypochromasia Not Reportable 07/13/20 08:31 Poikilocytosis Not Reportable 07/13/20 08:31 Anisocytosis Not Reportable 07/13/20 08:31 Microcytosis Not Reportable 07/13/20 08:31 Macrocytosis Not Reportable 07/13/20 08:31 Spherocytes Not Reportable 07/13/20 08:31 Pappenheimer Bodies Not Reportable 07/13/20 08:31 Sickle Cells Not Reportable 07/13/20 08:31 Target Cells Not Reportable 07/13/20 08:31 Tear Drop Cells Not Reportable 07/13/20 08:31 Ovalocytes Not Reportable 07/13/20 08:31 Stomatocytes Few 07/13/20 08:31 Helmet Cells Not Reportable 07/13/20 08:31 [place] Bodies Not Reportable 07/13/20 08:31 [place] Rings Not Reportable 07/13/20 08:31 [place] Cells Not Reportable 07/13/20 08:31 Bite Cells Not Reportable 07/13/20 08:31 Crenated Cell Not Reportable 07/13/20 08:31 Elliptocytes Not Reportable 07/13/20 08:31 Acanthocytes (Spur) Not Reportable 07/13/20 08:31 Rouleaux Not Reportable 07/13/20 08:31 Hemoglobin C Crystals Not Reportable 07/13/20 08:31 Schistocytes Not Reportable 07/13/20 08:31 Malaria parasites Not Reportable 07/13/20 08:31 Josue Bodies Not Reportable 07/13/20 08:31 Hem Pathologist Commnt No 07/13/20 08:31 PT 11.8 Sec. (12.2-14.9) L 06/22/20 14:29 INR 0.88 (0.87-1.13) 06/22/20 14:29 APTT 23.5 Sec. (24.2-36.6) L 06/22/20 14:29 D-Dimer 1887.82 ng/mlDDU (0-234) H 05/20/20 08:16 Heparin Anti-Xa Level 0.37 U.I./ml (0.3-0.7) 07/02/20 16:08 ABG pH 7.477 (7.320-7.450) H 07/13/20 13:52 POC ABG pCO2 54.4 mmHg (32.0-48.0) H 07/13/20 13:52 ABG pCO2 53.1 mm Hg 07/08/20 Unknown POC ABG pO2 126.8 mmHg (83-108) H 07/13/20 13:52 ABG pO2 75.3 mm Hg (80.0-90.0) L 07/08/20 Unknown POC ABG HCO3 39.3 07/13/20 13:52 ABG HCO3 34.3 mmol/L (20.0-26.0) H 07/08/20 Unknown ABG O2 Saturation 96.5 % (95.0-99.0) 07/08/20 Unknown ABG O2 Content 13.5 (0.0-44) 07/08/20 Unknown POC ABG Base Excess 13.8 07/13/20 13:52 ABG Base Excess 8.7 mmol/L (-2.0-3.0) H 07/08/20 Unknown ABG Hemoglobin 11.5 (12.0-17.5) L 07/13/20 13:52 ABG Oxyhemoglobin 97.7 (94-98) 07/13/20 13:52 ABG Carboxyhemoglobin 2.4 % (0.0-5.0) 07/08/20 Unknown ABG Methemoglobin 0 (0.0-1.5) 07/13/20 13:52 ABG Sodium 136.2 mmol/L (136.0-145.0) 07/13/20 13:52 ABG Potassium 3.2 mmol/L (3.40-4.50) L 07/13/20 13:52 ABG Chloride 92.0 mmol/L (98-107) L 07/13/20 13:52 ABG Glucose 169 mg/dL (65-95) H 07/13/20 13:52 Oxyhemoglobin 93.7 % (95.0-99.0) L 07/08/20 Unknown Carboxyhemoglobin 1.2 (0.5-1.5) 07/13/20 13:52 FiO2 45 07/13/20 13:52 Sodium 142 mmol/L (137-145) 08/03/20 05:18 Potassium 3.8 mmol/L (3.6-5.0) D 08/03/20 05:18 Chloride 100.0 mmol/L (98-107) 08/03/20 05:18 Carbon Dioxide 32 mmol/L (22-30) H D 08/03/20 05:18 Anion Gap 14 mmol/L 08/03/20 05:18 BUN 14 mg/dL (9-20) 08/03/20 05:18 Creatinine 0.4 mg/dL (0.8-1.3) L 08/03/20 05:18 Estimated GFR > 60 ml/min 08/03/20 05:18 BUN/Creatinine Ratio 35 % 08/03/20 05:18 Glucose 100 mg/dL (75-100) 08/03/20 05:18 POC Glucose 129 mg/dL (70-105) H 08/07/20 21:30 Lactic Acid 0.80 mmol/L (0.7-2.0) 07/13/20 15:45 Calcium 9.3 mg/dL (8.4-10.2) 08/03/20 05:18 Phosphorus 3.10 mg/dL (2.5-4.5) 06/15/20 04:00 Magnesium 2.00 mg/dL (1.7-2.3) 07/24/20 05:05 Ferritin 1496.0 ng/mL (30.0-300.0) H 06/14/20 11:50 Total Bilirubin 0.30 mg/dL (0.1-1.2) 08/02/20 05:55 Direct Bilirubin 0.6 mg/dL (0-0.2) H 05/11/20 07:30 Indirect Bilirubin 0.9 mg/dL 05/11/20 07:30 AST 37 units/L (5-40) 08/02/20 05:55 ALT 118 units/L (7-56) H 08/02/20 05:55 Alkaline Phosphatase 88 units/L (35-129) 08/02/20 05:55 Lactate Dehydrogenase 705 units/L (91-180) H 05/20/20 08:16 Troponin T 0.015 ng/mL (0.00-0.029) 07/07/20 10:00 C-Reactive Protein 3.10 mg/dL (0.00-1.30) H 05/20/20 08:16 Total Protein 6.4 g/dL (6.3-8.2) 08/02/20 05:55 Albumin 3.3 g/dL (3.9-5) L 08/02/20 05:55 Albumin/Globulin Ratio 1.1 % 08/02/20 05:55 Triglycerides 452 mg/dL (2-149) H 06/30/20 07:00 Lipase 86 units/L (13-60) H 06/29/20 09:36 Procalcitonin 2.15 ng/mL (<0.15) 07/15/20 05:31 Arterial Blood Glucose 169 mg/dL (65-95) H 07/13/20 13:52 Arterial Blood Ionized Calcium 4.8 mg/dL (4.6-5.3) 07/13/20 13:52 Urine Color Fauzia (Yellow) 05/10/20 Unknown Urine Turbidity Clear (Clear) 05/10/20 Unknown Urine pH 5.0 (5.0-7.0) 05/10/20 Unknown Ur Specific [place] 1.019 (1.003-1.030) 05/10/20 Unknown Urine Protein 100 mg/dl mg/dL (Negative) 05/10/20 Unknown Urine Glucose (UA) Neg mg/dL (Negative) 05/10/20 Unknown Urine Ketones Neg mg/dL (Negative) 05/10/20 Unknown Urine Blood Lg (Negative) 05/10/20 Unknown Urine Nitrite Neg (Negative) 05/10/20 Unknown Urine Bilirubin Neg (Negative) 05/10/20 Unknown Urine Urobilinogen 2.0 mg/dL (<2.0) 05/10/20 Unknown Ur Leukocyte Esterase Neg (Negative) 05/10/20 Unknown Urine WBC (Auto) 11.0 /HPF (0.0-6.0) H 05/10/20 Unknown Urine RBC (Auto) 2.0 /HPF (0.0-6.0) 05/10/20 Unknown U Epithel Cells (Auto) 1.0 /HPF (0-13.0) 05/10/20 Unknown Urine Bacteria (Auto) 1+ /HPF (Negative) 05/10/20 Unknown Urine Mucus Few /HPF 05/10/20 Unknown Plasma/Serum Alcohol < 0.01 % (0-0.07) 05/09/20 14:20 Coronavirus (PCR) Negative (Negative) 08/06/20 09:36 Hepatitis A Ab Total Nonreactive (Nonreactive) 07/09/20 Unknown Hep B Core Total Ab Nonreactive (Nonreactive) 07/09/20 Unknown Hepatitis C RNA Quant See scanned result 07/09/20 Unknown SARS-CoV-2 IgG Ab Reactive (NonReactive) A 05/11/20 07:30 Blood Type B POSITIVE 06/21/20 14:18 Antibody Screen Negative 06/21/20 14:18 Crossmatch See Detail 06/21/20 14:18 - Diagnostic Impressions Diagnostic Impressions: Echocardiogram 05/20/20 13:02 Transthoracic Echocardiogram Indication: CHF BP: 97/73 Conclusions *The study quality is technically very difficult and limited. *The left ventricular chamber size, wall thickness and systolic function are within normal limits. There are no wall motion abnormalities observed. Ejection fraction is normal. *The estimated ejection fraction is 60-65%. *The pericardium appears normal. Findings Procedure Info: The study quality is technically difficult. Left Ventricle: The left ventricular chamber size, wall thickness and systolic function are within normal limits. There are no wall motion abnormalities observed. Ejection fraction is normal. The estimated ejection fraction is 60-65%. Abnormal left ventricular diastolic filling is observed, consistent with impaired relaxation. Left Atrium: The left atrium is normal in size with no visual thrombus identified. Right Ventricle: The right ventricle is not well visualized. Right Atrium: The right atrium is not well visualized. Aortic Valve: The aortic valve is trileaflet. The leaflets are thin with normal excursion. There is no aortic stenosis or regurgitation present. Mitral Valve: The mitral valve appears normal in structure and function. Tricuspid Valve: The tricuspid valve appears normal in structure and function. Unable to estimate the right ventricular systolic pressure. Pulmonic Valve: The pulmonic valve is not well visualized. There is no evidence of pulmonic regurgitation. There is no pulmonic stenosis. Pericardium: The pericardium appears normal. Pulmonary Artery: The main pulmonary artery is not well visualized. Venous: The inferior vena cava appears normal in size. Measurements Chambers 2D Name Value Normal Range IVSd (2D) 0.83 cm (0.6 - 1.1) LVPWd (2D) 0.83 cm (0.6 - 1.1) LVIDd (2D) 3.88 cm (3.7 - 5.6) LVIDs (2D) 2.46 cm (2 - 3.8) LV FS (2D) 36.52 % - EF Teichholz (2D) 66.97 % - Ao root diameter (2D) 3.47 cm (2 - 3.7) Volumes/Mass Name Value Normal Range LA ESV SP 4CH (A/L) 22.4 ml - LA ESV SP 2CH (A/L) 22.89 ml - LA ESV BP (A/L) 23.06 ml - LA ESV SP 4CH (MOD) 21.09 ml - LA ESV SP 2CH (MOD) 22.44 ml - Diastolic/Systolic Function Name Value Normal Range MV E-wave Vmax 0.48 m/sec - MV deceleration time 156.3 msec - MV A-wave Vmax 0.59 m/sec - MV E:A ratio 0.81 ratio - Aortic Valve Name Value Normal Range AV Vmax 0.97 m/sec - AV VTI 14.49 cm - AV peak gradient 3.73 mmHg - AV mean gradient 1.89 mmHg - LVOT diameter 2.09 cm - LVOT Vmax 0.72 m/sec - LVOT VTI 10.21 cm - LVOT peak gradient 2.05 mmHg - LVOT mean gradient 1.03 mmHg - SV LVOT 35.17 ml - INNA (continuity Vmax) 2.55 cm2 - INNA (continuity VTI) 2.43 cm2 - Tricuspid Valve Name Value Normal Range TV E-wave Vmax 0.37 m/sec - Pulmonic Valve/Qp:Qs Name Value Normal Range PV Vmax 0.72 m/sec - PV peak gradient 2.06 mmHg - RVOT Vmax 0.85 m/sec - RVOT VTI 9.89 cm - RVOT peak gradient 2.9 mmHg - PV acceleration time 72.31 msec - [place]/IV: Voiding Method Bedside Commode IV Catheter Type [Right Wrist] INT / Saline Lock IV Catheter Type [Right Upper Peripheral IV arm] IV Catheter Type [Right CVL Internal Jugular] IV Catheter Type [Right Peripheral IV Forearm] IV Catheter Type [Left Forearm INT / Saline Lock ] IV Catheter Type [Left Wrist] INT / Saline Lock IV Catheter Type [Right Hand] INT / Saline Lock IV Catheter Type [Left Hand] INT / Saline Lock IV Catheter Type [Left Peripheral IV Antecubital] Active Medications - Current Medications Current Medications: Generic Name Dose Route Start Last Admin Trade Name Freq PRN Reason Stop Dose Admin Acetaminophen 650 mg 08/07/20 10:06 Acetaminophen 325 Mg Tab PO Q4H PRN Pain, Mild (1-3) Alprazolam 0.25 mg 05/20/20 17:53 07/26/20 09:37 Alprazolam 0.25 Mg Tab PO 0.25 mg Q8H PRN Administration Anxiety Lipase/Protease/Amylase 1 each 05/22/20 13:01 Lipase 10,500/Protease 25,000/Amylase 43,750 (Units) Dr Newell FEEDTUBE PRN PRN For Clogged Feeding Tube Bisacodyl 10 mg 07/14/20 11:00 Bisacodyl 10 Mg Rect Supp CO BID PRN Laxative Effect Enoxaparin Sodium 40 mg 07/29/20 22:00 08/07/20 22:25 Enoxaparin 40 Mg/0.4 Ml Inj SUB-Q 40 mg QDAY@2200 DESIRE Administration Protocol Folic Acid 1 mg 05/09/20 15:36 08/07/20 10:57 Folic Acid 1 Mg Tab PO 1 mg QDAY DESIRE Administration Guaifenesin 600 mg 07/19/20 23:00 08/07/20 22:25 Guaifenesin Er 600 Mg Tab PO 600 mg BID DESIRE Administration Hydrophilic Ointment 1 applic 05/21/20 20:33 Lip Therapy Vaseline TP Q2HR PRN Dry Lips Insulin Human Lispro 0 unit 07/31/20 07:30 08/07/20 22:30 Insulin Lispro 100 Unit/Ml SUB-Q Not Given ACHS [facility] Protocol Lansoprazole 30 mg 06/28/20 10:00 08/07/20 10:57 Lansoprazole 30 Mg Solutab FEEDTUBE 30 mg QDAY DESIRE Administration Metoprolol Tartrate 5 mg 07/02/20 17:17 07/08/20 14:38 Metoprolol Tartrate 5 Mg/5 Ml Inj IV 5 mg Q6HR PRN Administration Tachyarrhythmias Metoprolol Tartrate 12.5 mg 07/17/20 12:00 08/07/20 22:25 Metoprolol Tartrate 25 Mg Tab PO 12.5 mg BID DESIRE Administration Multi-Ingred Cream/Lotion/Oil/Oint 1 applic 05/21/20 20:33 Mineral Oil/Petrolatum, White Ophth Oint 3.5 Gm OU Q4HR PRN Dry Eye(s) Olanzapine 5 mg 07/17/20 22:00 08/07/20 22:25 Olanzapine 5 Mg Tab PO 5 mg QHS DESIRE Administration Phenobarbital 32.4 mg 07/04/20 22:00 08/07/20 22:25 Phenobarbital 32.4 Mg Tab PO 32.4 mg BID DESIRE Administration Prednisone 2.5 mg 08/07/20 10:00 08/07/20 10:57 Prednisone 5 Mg Tab PO 08/09/20 10:01 2.5 mg QDAY DESIRE Administration Pseudoephedrine/Acetam/Chlorphenir 10 ml 08/07/20 11:12 Guaifenesin/Codeine 100-10mg Oral Liqd 5 Ml PO Q4H PRN Cough Quetiapine Fumarate 200 mg 07/16/20 10:00 08/07/20 10:57 Quetiapine 200 Mg Tab PO 200 mg QAM DESIRE Administration Senna 17.2 mg 07/14/20 11:00 08/03/20 16:46 Sennosides 8.6 Mg Tab PO 8.6 mg BID PRN Administration Laxative Effect Nutrition/Malnutrition Assess - Dietary Evaluation Nutrition/Malnutrition Findings: Nutrition Notes Start: 05/17/20 14:10 Freq: Status: Active Protocol: Document 08/04/20 11:40 CECY (Rec: 08/04/20 11:45 CECY [id number]) Co-Sign 08/04/20 11:40 Nutrition Notes Initial or Follow up Reassessment Current Diagnosis Decubitus(Pressure Ulcer), Sepsis,Respiratory Failure Other Pertinent Diagnosis Bilat pneu, COVID-19 (-), EtOH dependence Current Diet Regular diet Labs/Tests Cr 0.4 BG 100 POC 167 Pertinent Medications Folic Acid Prednisone Height 6 ft Weight 98.2 kg Usual Body Weight 118 kg [place] Body Weight (kg) 80.90 BMI 29.3 Weight Status Overweight Subjective/Other Information F/u intakes, ONS, and Sammy. Pt reported eating very well, drinking ONS and Sammy. Percent of energy/protein needs met: 100%/100% Burn Absent Trauma Absent GI Symptoms None Current % PO Good (75-100%) Minimum of two criteria Yes Interpretation of Weight Loss (severe) >5% in 1 month Muscle Mass Mild Depletion (non-severe) #4 Nutrition Diagnosis Food and nutrition-related knowledge deficit As Evidenced by Signs and Symptoms Pt had no questions Diagnosis Progress(for reassessment Resolved documentation) #3 Nutrition Diagnosis Malnutrition Diagnosis Progress(for reassessment Continues documentation) #2 Nutrition Diagnosis Increased nutrient needs ( specify in comment below) Diagnosis Progress(for reassessment Continues documentation) Is patient on ventilator? No Is Patient Ambulatory and/or Out of Bed No REE-([place]-St. Jeor-confined to bed) 2253.720 Kcal/Kg value to use for calculation 21 Approximate Energy Requirements Using 2061 kcal/Kg Calculation Used for Recommendations Kcal/kg Additional Notes Protein: 106-134 g (1.2-1.5 g/ kg AdBW 89 kg) Fluid: 1ml/kcal Nutrition Intervention Change Diet Order: Continue diet Add Supplement/Snack (indicate name/kcal Ensure High Protein daily /protein ) Sammy BID Provides kCal: 350 Provides Protein (gm) 21 Goal #1 Meet at least 75% protein and energy needs via PO Goal #2 ONS tolerance Goal #3 Intake of Sammy BID Anticipated Discharge Needs: Regular, healthful diet and Sammy BID and increased protein intake until pressure ulcer is healed. Follow-Up By: 08/11/20 Additional Comments F/u intakes, ONS and Sammy tolerance/intake
[2020-08-08] MEDS: INSULIN LISPRO 100 UNIT/ML SUB-Q SCH ×4 (09:33→22:29)
[2020-08-08] MEDS: guaiFENesin ER 600 MG TAB PO SCH ×2 (10:28→22:25)
[2020-08-08] MEDS: QUEtiapine 200 MG TAB PO SCH (10:28)
[2020-08-08] MEDS: FOLIC ACID 1 MG TAB PO SCH (10:29)
[2020-08-08] MEDS: METOPROLOL TARTRATE 25 MG TAB PO SCH ×2 (10:29→22:25)
[2020-08-08] MEDS: PHENobarbital 32.4 MG TAB PO SCH ×2 (10:29→22:25)
[2020-08-08] MEDS: LANSOPRAZOLE 30 MG SOLUTAB FEEDTUBE SCH (10:30)
[2020-08-08] MEDS: predniSONE 5 MG TAB PO SCH (10:37)
--- NOTE | 2020-08-08 18:09 | Progress Note ---
Assessment and Plan Acute hypoxemic respiratory failure due to COVID-19 Severe COVID infection Severe Sepsis, resolved Bilateral pneumonia Acute kidney injury (SEN) with acute tubular necrosis (ATN)-resolved h/o Alcohol dependence Elevated liver function tests probably secondary COVID -Wean supplemental oxygen to keep o2 sats>90% - continue bronchodilators with pulmonary hygiene per RT - accuchecks with glycemic control per SSI (Target blood glucose of 140-180 mg/dL; avoid hypoglycemia) - Avoid nephrotoxins, renally dose all medications, conservative fluid management - continue to avoid benzodiazepines, reduce the possibility of delirium - Maintenance of sleep-wake cycle, avoid delirium - PT/OT/ROM, increase activity - continue mobility protocols for pressure ulcer prevention -CXR, ABG as clinically indicated -CBC, BMP as clinically indicated -Supportive transfusions to keep HgB >7g/dL - continue other care per attending / other consultants -Discharge planning- inpatient rehab s/p COVID SPECIFIC INTERVENTIONS - SARS CoV-2 IgG positive patient is NOT a candidate for COVID convalescent plasma -Completed remdesivir -Completed Steroids Subjective Date of service: 08/08/20 Principal diagnosis: Ac hypoxemic resp failure; COVID-19; Severe Sepsis; Shaggy PNA; Alcohol Abuse Interval history: Patient is seen today for: Acute hypoxemic respiratory failure due to COVID-19; Severe Sepsis; Bilateral pneumonia; Alcohol dependence; Elevated liver function tests Seen and examined at bedside; 24hour events reviewed; nursing and respiratory care staff consulted; no adverse overnight events reported to me; sitting up bed remains on high flow oxygen at 4L/min, BIPAP qhs and prn. Denies any chest pain, no shortness of breath while resting but does have some shortness of breath on exertion, no fevers, no chills, no diarrhea or vomiting. Waiting admission into the inpatient rehab unit. Objective Vital Signs - 12hr 08/08/20 08/08/20 08/08/20 07:41 10:00 11:30 Temperature 97.5 F L 97.6 F Pulse Rate 114 H 120 H Respiratory 18 18 Rate Blood Pressure 127/72 126/70 O2 Sat by Pulse 96 95 97 Oximetry 08/08/20 08/08/20 14:51 16:04 Temperature 98.0 F Pulse Rate 117 H 119 H Respiratory 18 Rate Blood Pressure 124/73 O2 Sat by Pulse 86 Oximetry Constitutional: no acute distress, alert, other (sitting up in bed) Eyes: non-icteric ENT: oropharynx moist Neck: supple, no JVD Effort: mildly labored Ascultation: Bilateral: diminished breath sounds, rhonchi (scant bases) Percussion: Bilateral: not dull Cardiovascular: regular rate and rhythm, other (No R/M) Gastrointestinal: normoactive bowel sounds, soft, non-tender, non-distended (protuberant) Integumentary: normal Extremities: no cyanosis, no edema, pulses normal, no ischemia or petechiae Neurologic: normal mental status, non-focal exam (non focal grossly; weak), pupils equal and round, CN II-XII normal, motor strength normal and (weak ) Psychiatric: mood appropriate, affect normal CBC and BMP: 08/02/20 05:55 08/03/20 05:18 ABG, PT/INR, D-dimer: ABG ABG pH 7.477 (7.320-7.450) H 07/13/20 13:52 POC ABG pCO2 54.4 mmHg (32.0-48.0) H 07/13/20 13:52 ABG pCO2 53.1 mm Hg 07/08/20 Unknown POC ABG pO2 126.8 mmHg (83-108) H 07/13/20 13:52 ABG pO2 75.3 mm Hg (80.0-90.0) L 07/08/20 Unknown POC ABG HCO3 39.3 07/13/20 13:52 ABG O2 Saturation 96.5 % (95.0-99.0) 07/08/20 Unknown PT/INR, D-dimer PT 11.8 Sec. (12.2-14.9) L 06/22/20 14:29 INR 0.88 (0.87-1.13) 06/22/20 14:29 D-Dimer 1887.82 ng/mlDDU (0-234) H 05/20/20 08:16 Abnormal lab findings: Abnormal Labs 05/09/20 05/09/20 05/09/20 12:59 12:59 12:59 WBC 11.8 H RBC Hgb Hct MCV 96 H MCH 34 H MCHC 35 H RDW Lymph % (Auto) 6.9 L [place] % (Auto) Lymph # (Auto) 0.8 L [place] # (Auto) Baso # (Auto) Seg Neutrophils % 87.5 H Seg Neuts % (Manual) Lymphocytes % (Manual) Nucleated RBC % Seg Neutrophils # 10.3 H Seg Neutrophils # Man Lymphocytes # (Manual) Monocytes # (Manual) Eosinophils # (Manual) PT INR APTT D-Dimer Heparin Anti-Xa Level ABG pH POC ABG pCO2 POC ABG pO2 ABG pO2 ABG HCO3 ABG O2 Saturation ABG Base Excess ABG Hemoglobin ABG Oxyhemoglobin ABG Sodium ABG Potassium ABG Chloride ABG Glucose Oxyhemoglobin Carboxyhemoglobin Sodium 130 L Potassium 3.5 L Chloride 86.4 L Carbon Dioxide BUN 33 H Creatinine 2.3 H Glucose 156 H POC Glucose Lactic Acid Calcium Magnesium Ferritin Total Bilirubin 3.40 H Direct Bilirubin 1.7 H AST 385 H ALT 134 H Alkaline Phosphatase Lactate Dehydrogenase C-Reactive Protein Total Protein Albumin 3.0 L Triglycerides Lipase Arterial Blood Glucose Arterial Blood Ionized Calcium Urine WBC (Auto) Coronavirus (PCR) SARS-CoV-2 IgG Ab Crossmatch 05/09/20 05/09/20 05/09/20 12:59 12:59 12:59 WBC RBC Hgb Hct MCV MCH MCHC RDW Lymph % (Auto) [place] % (Auto) Lymph # (Auto) [place] # (Auto) Baso # (Auto) Seg Neutrophils % Seg Neuts % (Manual) Lymphocytes % (Manual) Nucleated RBC % Seg Neutrophils # Seg Neutrophils # Man Lymphocytes # (Manual) Monocytes # (Manual) Eosinophils # (Manual) PT INR APTT D-Dimer 3242.51 H Heparin Anti-Xa Level ABG pH POC ABG pCO2 POC ABG pO2 ABG pO2 ABG HCO3 ABG O2 Saturation ABG Base Excess ABG Hemoglobin ABG Oxyhemoglobin ABG Sodium ABG Potassium ABG Chloride ABG Glucose Oxyhemoglobin Carboxyhemoglobin Sodium Potassium Chloride Carbon Dioxide BUN Creatinine Glucose 158 H POC Glucose Lactic Acid 3.50 H* Calcium Magnesium Ferritin Total Bilirubin Direct Bilirubin AST ALT Alkaline Phosphatase Lactate Dehydrogenase 2166 H C-Reactive Protein 39.00 H Total Protein Albumin Triglycerides Lipase Arterial Blood Glucose Arterial Blood Ionized Calcium Urine WBC (Auto) Coronavirus (PCR) SARS-CoV-2 IgG Ab Crossmatch 05/09/20 05/09/20 05/09/20 12:59 14:20 14:20 WBC RBC Hgb Hct MCV MCH MCHC RDW Lymph % (Auto) [place] % (Auto) Lymph # (Auto) [place] # (Auto) Baso # (Auto) Seg Neutrophils % Seg Neuts % (Manual) Lymphocytes % (Manual) Nucleated RBC % Seg Neutrophils # Seg Neutrophils # Man Lymphocytes # (Manual) Monocytes # (Manual) Eosinophils # (Manual) PT INR APTT D-Dimer 2861.78 H Heparin Anti-Xa Level ABG pH POC ABG pCO2 POC ABG pO2 ABG pO2 ABG HCO3 ABG O2 Saturation ABG Base Excess ABG Hemoglobin ABG Oxyhemoglobin ABG Sodium ABG Potassium ABG Chloride ABG Glucose Oxyhemoglobin Carboxyhemoglobin Sodium Potassium Chloride Carbon Dioxide BUN Creatinine Glucose POC Glucose Lactic Acid 2.20 H* Calcium Magnesium Ferritin 11033.0 H Total Bilirubin Direct Bilirubin AST ALT Alkaline Phosphatase Lactate Dehydrogenase C-Reactive Protein Total Protein Albumin Triglycerides Lipase Arterial Blood Glucose Arterial Blood Ionized Calcium Urine WBC (Auto) Coronavirus (PCR) SARS-CoV-2 IgG Ab Crossmatch 05/09/20 05/09/20 05/09/20 14:20 14:20 15:56 WBC RBC Hgb Hct MCV MCH MCHC RDW Lymph % (Auto) [place] % (Auto) Lymph # (Auto) [place] # (Auto) Baso # (Auto) Seg Neutrophils % Seg Neuts % (Manual) Lymphocytes % (Manual) Nucleated RBC % Seg Neutrophils # Seg Neutrophils # Man Lymphocytes # (Manual) Monocytes # (Manual) Eosinophils # (Manual) PT INR APTT D-Dimer Heparin Anti-Xa Level ABG pH POC ABG pCO2 POC ABG pO2 57.3 L ABG pO2 ABG HCO3 ABG O2 Saturation ABG Base Excess ABG Hemoglobin ABG Oxyhemoglobin 86.3 L ABG Sodium 129.9 L ABG Potassium ABG Chloride ABG Glucose 146 H Oxyhemoglobin Carboxyhemoglobin Sodium Potassium Chloride Carbon Dioxide BUN Creatinine Glucose 143 H POC Glucose Lactic Acid Calcium Magnesium Ferritin 81960.0 H Total Bilirubin Direct Bilirubin AST ALT Alkaline Phosphatase Lactate Dehydrogenase 1953 H C-Reactive Protein 33.50 H Total Protein Albumin Triglycerides Lipase Arterial Blood Glucose 146 H Arterial Blood Ionized Calcium 3.9 L Urine WBC (Auto) Coronavirus (PCR) SARS-CoV-2 IgG Ab Crossmatch 05/10/20 05/10/20 05/10/20 10:32 10:32 18:50 WBC 15.4 H RBC Hgb Hct MCV 97 H MCH 33 H MCHC RDW 13.1 L Lymph % (Auto) [place] % (Auto) Lymph # (Auto) [place] # (Auto) Baso # (Auto) Seg Neutrophils % Seg Neuts % (Manual) 89.0 H Lymphocytes % (Manual) 8.0 L Nucleated RBC % Seg Neutrophils # Seg Neutrophils # Man 13.7 H Lymphocytes # (Manual) Monocytes # (Manual) Eosinophils # (Manual) PT INR APTT D-Dimer Heparin Anti-Xa Level ABG pH POC ABG pCO2 POC ABG pO2 ABG pO2 ABG HCO3 ABG O2 Saturation ABG Base Excess ABG Hemoglobin ABG Oxyhemoglobin ABG Sodium ABG Potassium ABG Chloride ABG Glucose Oxyhemoglobin Carboxyhemoglobin Sodium 136 L Potassium Chloride 97.4 L Carbon Dioxide BUN 37 H Creatinine 1.7 H Glucose 209 H POC Glucose Lactic Acid Calcium Magnesium Ferritin > 2000.0 H Total Bilirubin Direct Bilirubin AST ALT Alkaline Phosphatase Lactate Dehydrogenase C-Reactive Protein Total Protein Albumin Triglycerides Lipase Arterial Blood Glucose Arterial Blood Ionized Calcium Urine WBC (Auto) Coronavirus (PCR) SARS-CoV-2 IgG Ab Crossmatch 05/10/20 05/10/20 05/10/20 18:50 19:00 Unknown WBC RBC Hgb Hct MCV MCH MCHC RDW Lymph % (Auto) [place] % (Auto) Lymph # (Auto) [place] # (Auto) Baso # (Auto) Seg Neutrophils % Seg Neuts % (Manual) Lymphocytes % (Manual) Nucleated RBC % Seg Neutrophils # Seg Neutrophils # Man Lymphocytes # (Manual) Monocytes # (Manual) Eosinophils # (Manual) PT INR APTT D-Dimer > 99465 H Heparin Anti-Xa Level ABG pH POC ABG pCO2 POC ABG pO2 ABG pO2 ABG HCO3 ABG O2 Saturation ABG Base Excess ABG Hemoglobin ABG Oxyhemoglobin ABG Sodium ABG Potassium ABG Chloride ABG Glucose Oxyhemoglobin Carboxyhemoglobin Sodium Potassium Chloride Carbon Dioxide BUN Creatinine Glucose POC Glucose Lactic Acid Calcium Magnesium Ferritin Total Bilirubin Direct Bilirubin AST ALT Alkaline Phosphatase Lactate Dehydrogenase 1879 H C-Reactive Protein 24.80 H Total Protein Albumin Triglycerides Lipase Arterial Blood Glucose Arterial Blood Ionized Calcium Urine WBC (Auto) 11.0 H Coronavirus (PCR) SARS-CoV-2 IgG Ab Crossmatch 05/10/20 05/11/20 05/11/20 Unknown 07:30 07:30 WBC RBC Hgb Hct MCV MCH MCHC RDW Lymph % (Auto) [place] % (Auto) Lymph # (Auto) [place] # (Auto) Baso # (Auto) Seg Neutrophils % Seg Neuts % (Manual) Lymphocytes % (Manual) Nucleated RBC % Seg Neutrophils # Seg Neutrophils # Man Lymphocytes # (Manual) Monocytes # (Manual) Eosinophils # (Manual) PT INR APTT D-Dimer > 2000 H Heparin Anti-Xa Level ABG pH POC ABG pCO2 POC ABG pO2 ABG pO2 ABG HCO3 ABG O2 Saturation ABG Base Excess ABG Hemoglobin ABG Oxyhemoglobin ABG Sodium ABG Potassium ABG Chloride ABG Glucose Oxyhemoglobin Carboxyhemoglobin Sodium Potassium Chloride 96.3 L Carbon Dioxide BUN 36 H Creatinine Glucose 161 H POC Glucose Lactic Acid Calcium 8.3 L Magnesium Ferritin Total Bilirubin 1.50 H Direct Bilirubin 0.6 H AST 178 H ALT 111 H Alkaline Phosphatase Lactate Dehydrogenase C-Reactive Protein Total Protein Albumin 3.0 L Triglycerides Lipase Arterial Blood Glucose Arterial Blood Ionized Calcium Urine WBC (Auto) Coronavirus (PCR) Positive A SARS-CoV-2 IgG Ab Crossmatch 05/11/20 05/11/20 05/11/20 07:30 07:30 07:30 WBC RBC Hgb Hct MCV MCH MCHC RDW Lymph % (Auto) [place] % (Auto) Lymph # (Auto) [place] # (Auto) Baso # (Auto) Seg Neutrophils % Seg Neuts % (Manual) Lymphocytes % (Manual) Nucleated RBC % Seg Neutrophils # Seg Neutrophils # Man Lymphocytes # (Manual) Monocytes # (Manual) Eosinophils # (Manual) PT INR APTT D-Dimer Heparin Anti-Xa Level ABG pH POC ABG pCO2 POC ABG pO2 ABG pO2 ABG HCO3 ABG O2 Saturation ABG Base Excess ABG Hemoglobin ABG Oxyhemoglobin ABG Sodium ABG Potassium ABG Chloride ABG Glucose Oxyhemoglobin Carboxyhemoglobin Sodium Potassium Chloride Carbon Dioxide BUN Creatinine Glucose POC Glucose Lactic Acid Calcium Magnesium Ferritin 64628.0 H Total Bilirubin Direct Bilirubin AST ALT Alkaline Phosphatase Lactate Dehydrogenase 1523 H C-Reactive Protein 12.90 H Total Protein Albumin Triglycerides Lipase Arterial Blood Glucose Arterial Blood Ionized Calcium Urine WBC (Auto) Coronavirus (PCR) SARS-CoV-2 IgG Ab Reactive A Crossmatch 05/13/20 05/13/20 05/15/20 05:20 05:20 08:15 WBC RBC Hgb Hct MCV MCH MCHC RDW Lymph % (Auto) [place] % (Auto) Lymph # (Auto) [place] # (Auto) Baso # (Auto) Seg Neutrophils % Seg Neuts % (Manual) Lymphocytes % (Manual) Nucleated RBC % Seg Neutrophils # Seg Neutrophils # Man Lymphocytes # (Manual) Monocytes # (Manual) Eosinophils # (Manual) PT INR APTT D-Dimer > 36965 H 5318.28 H Heparin Anti-Xa Level ABG pH POC ABG pCO2 POC ABG pO2 ABG pO2 ABG HCO3 ABG O2 Saturation ABG Base Excess ABG Hemoglobin ABG Oxyhemoglobin ABG Sodium ABG Potassium ABG Chloride ABG Glucose Oxyhemoglobin Carboxyhemoglobin Sodium Potassium Chloride Carbon Dioxide 32 H BUN 30 H Creatinine Glucose 156 H POC Glucose Lactic Acid Calcium Magnesium 2.60 H Ferritin Total Bilirubin 1.40 H Direct Bilirubin AST 121 H ALT 119 H Alkaline Phosphatase Lactate Dehydrogenase 957 H C-Reactive Protein 4.00 H Total Protein Albumin 3.0 L Triglycerides Lipase Arterial Blood Glucose Arterial Blood Ionized Calcium Urine WBC (Auto) Coronavirus (PCR) SARS-CoV-2 IgG Ab Crossmatch 05/15/20 05/15/20 05/15/20 08:15 08:15 08:15 WBC 12.4 H RBC Hgb Hct MCV 98 H MCH 33 H MCHC RDW Lymph % (Auto) 9.7 L [place] % (Auto) Lymph # (Auto) [place] # (Auto) Baso # (Auto) Seg Neutrophils % 86.8 H Seg Neuts % (Manual) Lymphocytes % (Manual) Nucleated RBC % Seg Neutrophils # 10.8 H Seg Neutrophils # Man Lymphocytes # (Manual) Monocytes # (Manual) Eosinophils # (Manual) PT INR APTT D-Dimer Heparin Anti-Xa Level ABG pH POC ABG pCO2 POC ABG pO2 ABG pO2 ABG HCO3 ABG O2 Saturation ABG Base Excess ABG Hemoglobin ABG Oxyhemoglobin ABG Sodium ABG Potassium ABG Chloride ABG Glucose Oxyhemoglobin Carboxyhemoglobin Sodium Potassium Chloride 94.8 L Carbon Dioxide 32 H BUN 22 H Creatinine Glucose 115 H POC Glucose Lactic Acid Calcium 8.3 L Magnesium Ferritin 2494.0 H Total Bilirubin Direct Bilirubin AST 73 H ALT 121 H Alkaline Phosphatase Lactate Dehydrogenase 835 H C-Reactive Protein 3.40 H Total Protein 6.1 L Albumin 3.0 L Triglycerides Lipase Arterial Blood Glucose Arterial Blood Ionized Calcium Urine WBC (Auto) Coronavirus (PCR) SARS-CoV-2 IgG Ab Crossmatch 05/17/20 05/17/20 05/17/20 05:50 05:50 05:50 WBC RBC Hgb Hct MCV MCH MCHC RDW Lymph % (Auto) [place] % (Auto) Lymph # (Auto) [place] # (Auto) Baso # (Auto) Seg Neutrophils % Seg Neuts % (Manual) Lymphocytes % (Manual) Nucleated RBC % Seg Neutrophils # Seg Neutrophils # Man Lymphocytes # (Manual) Monocytes # (Manual) Eosinophils # (Manual) PT INR APTT D-Dimer 2911.42 H Heparin Anti-Xa Level ABG pH POC ABG pCO2 POC ABG pO2 ABG pO2 ABG HCO3 ABG O2 Saturation ABG Base Excess ABG Hemoglobin ABG Oxyhemoglobin ABG Sodium ABG Potassium ABG Chloride ABG Glucose Oxyhemoglobin Carboxyhemoglobin Sodium 136 L Potassium Chloride 96.0 L Carbon Dioxide 34 H BUN 22 H Creatinine Glucose 140 H POC Glucose Lactic Acid Calcium Magnesium Ferritin 2082.0 H Total Bilirubin Direct Bilirubin AST ALT 75 H Alkaline Phosphatase Lactate Dehydrogenase 601 H C-Reactive Protein 2.70 H Total Protein Albumin 2.9 L Triglycerides Lipase Arterial Blood Glucose Arterial Blood Ionized Calcium Urine WBC (Auto) Coronavirus (PCR) SARS-CoV-2 IgG Ab Crossmatch 05/17/20 05/18/20 05/20/20 05:50 12:22 08:16 WBC RBC Hgb Hct MCV 98 H MCH 33 H MCHC RDW Lymph % (Auto) 8.0 L [place] % (Auto) Lymph # (Auto) 0.8 L [place] # (Auto) Baso # (Auto) Seg Neutrophils % 89.3 H Seg Neuts % (Manual) Lymphocytes % (Manual) Nucleated RBC % Seg Neutrophils # 8.8 H Seg Neutrophils # Man Lymphocytes # (Manual) Monocytes # (Manual) Eosinophils # (Manual) PT INR APTT D-Dimer 1887.82 H Heparin Anti-Xa Level ABG pH POC ABG pCO2 POC ABG pO2 ABG pO2 ABG HCO3 ABG O2 Saturation ABG Base Excess ABG Hemoglobin ABG Oxyhemoglobin ABG Sodium ABG Potassium ABG Chloride ABG Glucose Oxyhemoglobin Carboxyhemoglobin Sodium Potassium Chloride Carbon Dioxide BUN Creatinine Glucose POC Glucose 178 H Lactic Acid Calcium Magnesium Ferritin Total Bilirubin Direct Bilirubin AST ALT Alkaline Phosphatase Lactate Dehydrogenase C-Reactive Protein Total Protein Albumin Triglycerides Lipase Arterial Blood Glucose Arterial Blood Ionized Calcium Urine WBC (Auto) Coronavirus (PCR) SARS-CoV-2 IgG Ab Crossmatch 05/20/20 05/20/20 05/21/20 08:16 08:16 21:10 WBC RBC Hgb Hct MCV MCH MCHC RDW Lymph % (Auto) [place] % (Auto) Lymph # (Auto) [place] # (Auto) Baso # (Auto) Seg Neutrophils % Seg Neuts % (Manual) Lymphocytes % (Manual) Nucleated RBC % Seg Neutrophils # Seg Neutrophils # Man Lymphocytes # (Manual) Monocytes # (Manual) Eosinophils # (Manual) PT INR APTT D-Dimer Heparin Anti-Xa Level ABG pH 7.483 H POC ABG pCO2 POC ABG pO2 ABG pO2 50.0 L ABG HCO3 27.0 H ABG O2 Saturation 86.2 L ABG Base Excess 3.7 H ABG Hemoglobin ABG Oxyhemoglobin ABG Sodium ABG Potassium ABG Chloride ABG Glucose Oxyhemoglobin 84.2 L Carboxyhemoglobin Sodium Potassium Chloride Carbon Dioxide BUN Creatinine Glucose POC Glucose Lactic Acid Calcium Magnesium Ferritin 1960.0 H Total Bilirubin Direct Bilirubin AST ALT Alkaline Phosphatase Lactate Dehydrogenase 705 H C-Reactive Protein 3.10 H Total Protein Albumin Triglycerides Lipase Arterial Blood Glucose Arterial Blood Ionized Calcium Urine WBC (Auto) Coronavirus (PCR) SARS-CoV-2 IgG Ab Crossmatch 05/22/20 05/22/20 05/22/20 04:01 07:53 07:53 WBC 19.2 H RBC Hgb Hct MCV 98 H MCH 34 H MCHC RDW Lymph % (Auto) [place] % (Auto) Lymph # (Auto) [place] # (Auto) Baso # (Auto) Seg Neutrophils % Seg Neuts % (Manual) 96.0 H Lymphocytes % (Manual) 1.0 L Nucleated RBC % Seg Neutrophils # Seg Neutrophils # Man 18.4 H Lymphocytes # (Manual) 0.2 L Monocytes # (Manual) Eosinophils # (Manual) PT INR APTT D-Dimer Heparin Anti-Xa Level ABG pH POC ABG pCO2 53.8 H POC ABG pO2 125.5 H ABG pO2 ABG HCO3 ABG O2 Saturation ABG Base Excess ABG Hemoglobin ABG Oxyhemoglobin ABG Sodium 131.8 L ABG Potassium 4.8 H ABG Chloride 94.0 L ABG Glucose 163 H Oxyhemoglobin Carboxyhemoglobin Sodium 131 L Potassium Chloride 93.4 L Carbon Dioxide BUN 40 H Creatinine Glucose 176 H POC Glucose Lactic Acid Calcium Magnesium 2.70 H Ferritin Total Bilirubin 1.80 H Direct Bilirubin AST 45 H ALT 116 H Alkaline Phosphatase 181 H Lactate Dehydrogenase C-Reactive Protein Total Protein Albumin 2.6 L Triglycerides Lipase Arterial Blood Glucose 163 H Arterial Blood Ionized Calcium 4.5 L Urine WBC (Auto) Coronavirus (PCR) SARS-CoV-2 IgG Ab Crossmatch 05/23/20 05/24/20 05/24/20 04:17 03:07 04:08 WBC RBC Hgb Hct MCV MCH MCHC RDW Lymph % (Auto) [place] % (Auto) Lymph # (Auto) [place] # (Auto) Baso # (Auto) Seg Neutrophils % Seg Neuts % (Manual) Lymphocytes % (Manual) Nucleated RBC % Seg Neutrophils # Seg Neutrophils # Man Lymphocytes # (Manual) Monocytes # (Manual) Eosinophils # (Manual) PT INR APTT D-Dimer Heparin Anti-Xa Level ABG pH 7.328 L POC ABG pCO2 POC ABG pO2 ABG pO2 72.8 L 73.4 L ABG HCO3 31.0 H 34.0 H ABG O2 Saturation 93.5 L ABG Base Excess 3.5 H 7.7 H ABG Hemoglobin 13.3 L 12.1 L ABG Oxyhemoglobin ABG Sodium ABG Potassium ABG Chloride ABG Glucose Oxyhemoglobin 91.5 L 94.3 L Carboxyhemoglobin Sodium Potassium Chloride Carbon Dioxide BUN Creatinine Glucose POC Glucose 155 H Lactic Acid Calcium Magnesium Ferritin Total Bilirubin Direct Bilirubin AST ALT Alkaline Phosphatase Lactate Dehydrogenase C-Reactive Protein Total Protein Albumin Triglycerides Lipase Arterial Blood Glucose Arterial Blood Ionized Calcium Urine WBC (Auto) Coronavirus (PCR) SARS-CoV-2 IgG Ab Crossmatch 05/24/20 05/24/20 05/24/20 09:33 12:21 17:52 WBC RBC Hgb Hct MCV MCH MCHC RDW Lymph % (Auto) [place] % (Auto) Lymph # (Auto) [place] # (Auto) Baso # (Auto) Seg Neutrophils % Seg Neuts % (Manual) Lymphocytes % (Manual) Nucleated RBC % Seg Neutrophils # Seg Neutrophils # Man Lymphocytes # (Manual) Monocytes # (Manual) Eosinophils # (Manual) PT INR APTT D-Dimer Heparin Anti-Xa Level ABG pH POC ABG pCO2 POC ABG pO2 ABG pO2 ABG HCO3 ABG O2 Saturation ABG Base Excess ABG Hemoglobin ABG Oxyhemoglobin ABG Sodium ABG Potassium ABG Chloride ABG Glucose Oxyhemoglobin Carboxyhemoglobin Sodium Potassium Chloride Carbon Dioxide 34 H D BUN 28 H Creatinine 0.7 L Glucose 168 H POC Glucose 173 H 164 H Lactic Acid Calcium Magnesium Ferritin Total Bilirubin Direct Bilirubin AST ALT Alkaline Phosphatase Lactate Dehydrogenase C-Reactive Protein Total Protein Albumin Triglycerides Lipase Arterial Blood Glucose Arterial Blood Ionized Calcium Urine WBC (Auto) Coronavirus (PCR) SARS-CoV-2 IgG Ab Crossmatch 05/24/20 05/25/20 05/25/20 23:47 04:29 05:46 WBC RBC Hgb Hct MCV MCH MCHC RDW Lymph % (Auto) [place] % (Auto) Lymph # (Auto) [place] # (Auto) Baso # (Auto) Seg Neutrophils % Seg Neuts % (Manual) Lymphocytes % (Manual) Nucleated RBC % Seg Neutrophils # Seg Neutrophils # Man Lymphocytes # (Manual) Monocytes # (Manual) Eosinophils # (Manual) PT INR APTT D-Dimer Heparin Anti-Xa Level ABG pH POC ABG pCO2 68.6 H POC ABG pO2 ABG pO2 ABG HCO3 ABG O2 Saturation ABG Base Excess ABG Hemoglobin ABG Oxyhemoglobin ABG Sodium ABG Potassium 4.7 H ABG Chloride ABG Glucose 226 H Oxyhemoglobin Carboxyhemoglobin Sodium Potassium Chloride Carbon Dioxide BUN Creatinine Glucose POC Glucose 171 H 201 H Lactic Acid Calcium Magnesium Ferritin Total Bilirubin Direct Bilirubin AST ALT Alkaline Phosphatase Lactate Dehydrogenase C-Reactive Protein Total Protein Albumin Triglycerides Lipase Arterial Blood Glucose 226 H Arterial Blood Ionized Calcium Urine WBC (Auto) Coronavirus (PCR) SARS-CoV-2 IgG Ab Crossmatch 05/25/20 05/25/20 05/25/20 08:37 08:37 12:38 WBC 12.0 H RBC 3.64 L Hgb Hct MCV 99 H MCH 33 H MCHC RDW Lymph % (Auto) [place] % (Auto) Lymph # (Auto) [place] # (Auto) Baso # (Auto) Seg Neutrophils % Seg Neuts % (Manual) Lymphocytes % (Manual) Nucleated RBC % Seg Neutrophils # Seg Neutrophils # Man Lymphocytes # (Manual) Monocytes # (Manual) Eosinophils # (Manual) PT INR APTT D-Dimer Heparin Anti-Xa Level ABG pH POC ABG pCO2 POC ABG pO2 ABG pO2 ABG HCO3 ABG O2 Saturation ABG Base Excess ABG Hemoglobin ABG Oxyhemoglobin ABG Sodium ABG Potassium ABG Chloride ABG Glucose Oxyhemoglobin Carboxyhemoglobin Sodium Potassium Chloride 97.3 L Carbon Dioxide 35 H BUN 25 H Creatinine 0.7 L Glucose 191 H POC Glucose 182 H Lactic Acid Calcium Magnesium Ferritin Total Bilirubin Direct Bilirubin AST ALT Alkaline Phosphatase Lactate Dehydrogenase C-Reactive Protein Total Protein Albumin Triglycerides Lipase Arterial Blood Glucose Arterial Blood Ionized Calcium Urine WBC (Auto) Coronavirus (PCR) SARS-CoV-2 IgG Ab Crossmatch 05/25/20 05/26/20 05/26/20 18:16 00:06 04:50 WBC RBC Hgb Hct MCV MCH MCHC RDW Lymph % (Auto) [place] % (Auto) Lymph # (Auto) [place] # (Auto) Baso # (Auto) Seg Neutrophils % Seg Neuts % (Manual) Lymphocytes % (Manual) Nucleated RBC % Seg Neutrophils # Seg Neutrophils # Man Lymphocytes # (Manual) Monocytes # (Manual) Eosinophils # (Manual) PT INR APTT D-Dimer Heparin Anti-Xa Level ABG pH POC ABG pCO2 POC ABG pO2 ABG pO2 221.5 H ABG HCO3 40.4 H ABG O2 Saturation 99.3 H ABG Base Excess 12.8 H ABG Hemoglobin 10.4 L ABG Oxyhemoglobin ABG Sodium ABG Potassium ABG Chloride ABG Glucose Oxyhemoglobin Carboxyhemoglobin Sodium Potassium Chloride Carbon Dioxide BUN Creatinine Glucose POC Glucose 176 H 152 H Lactic Acid Calcium Magnesium Ferritin Total Bilirubin Direct Bilirubin AST ALT Alkaline Phosphatase Lactate Dehydrogenase C-Reactive Protein Total Protein Albumin Triglycerides Lipase Arterial Blood Glucose Arterial Blood Ionized Calcium Urine WBC (Auto) Coronavirus (PCR) SARS-CoV-2 IgG Ab Crossmatch 05/26/20 05/26/20 05/26/20 06:11 07:51 07:51 WBC 13.4 H RBC 3.64 L Hgb Hct MCV 98 H MCH 33 H MCHC RDW Lymph % (Auto) [place] % (Auto) Lymph # (Auto) [place] # (Auto) Baso # (Auto) Seg Neutrophils % Seg Neuts % (Manual) Lymphocytes % (Manual) Nucleated RBC % Seg Neutrophils # Seg Neutrophils # Man Lymphocytes # (Manual) Monocytes # (Manual) Eosinophils # (Manual) PT INR APTT D-Dimer Heparin Anti-Xa Level ABG pH POC ABG pCO2 POC ABG pO2 ABG pO2 ABG HCO3 ABG O2 Saturation ABG Base Excess ABG Hemoglobin ABG Oxyhemoglobin ABG Sodium ABG Potassium ABG Chloride ABG Glucose Oxyhemoglobin Carboxyhemoglobin Sodium Potassium Chloride 96.6 L Carbon Dioxide 39 H BUN 29 H Creatinine 0.7 L Glucose 174 H POC Glucose 165 H Lactic Acid Calcium Magnesium Ferritin Total Bilirubin Direct Bilirubin AST ALT Alkaline Phosphatase Lactate Dehydrogenase C-Reactive Protein Total Protein Albumin Triglycerides Lipase Arterial Blood Glucose Arterial Blood Ionized Calcium Urine WBC (Auto) Coronavirus (PCR) SARS-CoV-2 IgG Ab Crossmatch 05/26/20 05/27/20 05/27/20 23:23 03:43 05:29 WBC RBC Hgb Hct MCV MCH MCHC RDW Lymph % (Auto) [place] % (Auto) Lymph # (Auto) [place] # (Auto) Baso # (Auto) Seg Neutrophils % Seg Neuts % (Manual) Lymphocytes % (Manual) Nucleated RBC % Seg Neutrophils # Seg Neutrophils # Man Lymphocytes # (Manual) Monocytes # (Manual) Eosinophils # (Manual) PT INR APTT D-Dimer Heparin Anti-Xa Level ABG pH 7.480 H POC ABG pCO2 52.4 H POC ABG pO2 61.4 L ABG pO2 ABG HCO3 ABG O2 Saturation ABG Base Excess ABG Hemoglobin ABG Oxyhemoglobin ABG Sodium 134.9 L ABG Potassium ABG Chloride 95.0 L ABG Glucose 221 H Oxyhemoglobin Carboxyhemoglobin Sodium Potassium Chloride Carbon Dioxide BUN Creatinine Glucose POC Glucose 169 H 227 H Lactic Acid Calcium Magnesium Ferritin Total Bilirubin Direct Bilirubin AST ALT Alkaline Phosphatase Lactate Dehydrogenase C-Reactive Protein Total Protein Albumin Triglycerides Lipase Arterial Blood Glucose 221 H Arterial Blood Ionized Calcium 4.5 L Urine WBC (Auto) Coronavirus (PCR) SARS-CoV-2 IgG Ab Crossmatch 05/27/20 05/27/20 05/27/20 07:19 12:18 13:50 WBC RBC Hgb Hct MCV MCH MCHC RDW Lymph % (Auto) [place] % (Auto) Lymph # (Auto) [place] # (Auto) Baso # (Auto) Seg Neutrophils % Seg Neuts % (Manual) Lymphocytes % (Manual) Nucleated RBC % Seg Neutrophils # Seg Neutrophils # Man Lymphocytes # (Manual) Monocytes # (Manual) Eosinophils # (Manual) PT INR APTT D-Dimer Heparin Anti-Xa Level ABG pH POC ABG pCO2 POC ABG pO2 ABG pO2 ABG HCO3 ABG O2 Saturation ABG Base Excess ABG Hemoglobin ABG Oxyhemoglobin ABG Sodium ABG Potassium ABG Chloride ABG Glucose Oxyhemoglobin Carboxyhemoglobin Sodium Potassium Chloride Carbon Dioxide BUN Creatinine Glucose POC Glucose 114 H 148 H Lactic Acid Calcium Magnesium Ferritin Total Bilirubin Direct Bilirubin AST ALT Alkaline Phosphatase Lactate Dehydrogenase C-Reactive Protein Total Protein Albumin Triglycerides 247 H Lipase Arterial Blood Glucose Arterial Blood Ionized Calcium Urine WBC (Auto) Coronavirus (PCR) SARS-CoV-2 IgG Ab Crossmatch 05/28/20 05/28/20 05/28/20 00:13 04:16 05:22 WBC RBC Hgb Hct MCV MCH MCHC RDW Lymph % (Auto) [place] % (Auto) Lymph # (Auto) [place] # (Auto) Baso # (Auto) Seg Neutrophils % Seg Neuts % (Manual) Lymphocytes % (Manual) Nucleated RBC % Seg Neutrophils # Seg Neutrophils # Man Lymphocytes # (Manual) Monocytes # (Manual) Eosinophils # (Manual) PT INR APTT D-Dimer Heparin Anti-Xa Level ABG pH POC ABG pCO2 64.4 H POC ABG pO2 60.5 L ABG pO2 ABG HCO3 ABG O2 Saturation ABG Base Excess ABG Hemoglobin ABG Oxyhemoglobin ABG Sodium ABG Potassium ABG Chloride 95.0 L ABG Glucose 209 H Oxyhemoglobin Carboxyhemoglobin Sodium Potassium Chloride Carbon Dioxide BUN Creatinine Glucose POC Glucose 155 H 186 H Lactic Acid Calcium Magnesium Ferritin Total Bilirubin Direct Bilirubin AST ALT Alkaline Phosphatase Lactate Dehydrogenase C-Reactive Protein Total Protein Albumin Triglycerides Lipase Arterial Blood Glucose 209 H Arterial Blood Ionized Calcium Urine WBC (Auto) Coronavirus (PCR) SARS-CoV-2 IgG Ab Crossmatch 05/28/20 05/28/20 05/29/20 12:45 17:39 00:37 WBC RBC Hgb Hct MCV MCH MCHC RDW Lymph % (Auto) [place] % (Auto) Lymph # (Auto) [place] # (Auto) Baso # (Auto) Seg Neutrophils % Seg Neuts % (Manual) Lymphocytes % (Manual) Nucleated RBC % Seg Neutrophils # Seg Neutrophils # Man Lymphocytes # (Manual) Monocytes # (Manual) Eosinophils # (Manual) PT INR APTT D-Dimer Heparin Anti-Xa Level ABG pH POC ABG pCO2 POC ABG pO2 ABG pO2 ABG HCO3 ABG O2 Saturation ABG Base Excess ABG Hemoglobin ABG Oxyhemoglobin ABG Sodium ABG Potassium ABG Chloride ABG Glucose Oxyhemoglobin Carboxyhemoglobin Sodium Potassium Chloride Carbon Dioxide BUN Creatinine Glucose POC Glucose 143 H 164 H 221 H Lactic Acid Calcium Magnesium Ferritin Total Bilirubin Direct Bilirubin AST ALT Alkaline Phosphatase Lactate Dehydrogenase C-Reactive Protein Total Protein Albumin Triglycerides Lipase Arterial Blood Glucose Arterial Blood Ionized Calcium Urine WBC (Auto) Coronavirus (PCR) SARS-CoV-2 IgG Ab Crossmatch 05/29/20 05/29/20 05/29/20 04:15 05:33 12:34 WBC RBC Hgb Hct MCV MCH MCHC RDW Lymph % (Auto) [place] % (Auto) Lymph # (Auto) [place] # (Auto) Baso # (Auto) Seg Neutrophils % Seg Neuts % (Manual) Lymphocytes % (Manual) Nucleated RBC % Seg Neutrophils # Seg Neutrophils # Man Lymphocytes # (Manual) Monocytes # (Manual) Eosinophils # (Manual) PT INR APTT D-Dimer Heparin Anti-Xa Level ABG pH 7.463 H POC ABG pCO2 56.3 H POC ABG pO2 81.2 L ABG pO2 ABG HCO3 ABG O2 Saturation ABG Base Excess ABG Hemoglobin ABG Oxyhemoglobin ABG Sodium ABG Potassium ABG Chloride 96.0 L ABG Glucose 194 H Oxyhemoglobin Carboxyhemoglobin Sodium Potassium Chloride Carbon Dioxide BUN Creatinine Glucose POC Glucose 133 H 221 H Lactic Acid Calcium Magnesium Ferritin Total Bilirubin Direct Bilirubin AST ALT Alkaline Phosphatase Lactate Dehydrogenase C-Reactive Protein Total Protein Albumin Triglycerides Lipase Arterial Blood Glucose 194 H Arterial Blood Ionized Calcium 4.5 L Urine WBC (Auto) Coronavirus (PCR) SARS-CoV-2 IgG Ab Crossmatch 05/29/20 05/30/20 05/30/20 18:07 00:12 05:38 WBC RBC Hgb Hct MCV MCH MCHC RDW Lymph % (Auto) [place] % (Auto) Lymph # (Auto) [place] # (Auto) Baso # (Auto) Seg Neutrophils % Seg Neuts % (Manual) Lymphocytes % (Manual) Nucleated RBC % Seg Neutrophils # Seg Neutrophils # Man Lymphocytes # (Manual) Monocytes # (Manual) Eosinophils # (Manual) PT INR APTT D-Dimer Heparin Anti-Xa Level ABG pH POC ABG pCO2 POC ABG pO2 ABG pO2 ABG HCO3 ABG O2 Saturation ABG Base Excess ABG Hemoglobin ABG Oxyhemoglobin ABG Sodium ABG Potassium ABG Chloride ABG Glucose Oxyhemoglobin Carboxyhemoglobin Sodium Potassium Chloride Carbon Dioxide BUN Creatinine Glucose POC Glucose 162 H 190 H 208 H Lactic Acid Calcium Magnesium Ferritin Total Bilirubin Direct Bilirubin AST ALT Alkaline Phosphatase Lactate Dehydrogenase C-Reactive Protein Total Protein Albumin Triglycerides Lipase Arterial Blood Glucose Arterial Blood Ionized Calcium Urine WBC (Auto) Coronavirus (PCR) SARS-CoV-2 IgG Ab Crossmatch 05/30/20 05/30/20 05/30/20 09:30 11:35 11:54 WBC 12.4 H RBC 3.48 L Hgb 11.3 L Hct 34.6 L MCV 99 H MCH 33 H MCHC RDW Lymph % (Auto) [place] % (Auto) Lymph # (Auto) [place] # (Auto) Baso # (Auto) Seg Neutrophils % Seg Neuts % (Manual) Lymphocytes % (Manual) Nucleated RBC % Seg Neutrophils # Seg Neutrophils # Man Lymphocytes # (Manual) Monocytes # (Manual) Eosinophils # (Manual) PT INR APTT D-Dimer Heparin Anti-Xa Level ABG pH 7.455 H POC ABG pCO2 57.5 H POC ABG pO2 81.5 L ABG pO2 ABG HCO3 ABG O2 Saturation ABG Base Excess ABG Hemoglobin ABG Oxyhemoglobin ABG Sodium ABG Potassium ABG Chloride 96.0 L ABG Glucose 204 H Oxyhemoglobin Carboxyhemoglobin Sodium Potassium Chloride Carbon Dioxide BUN Creatinine Glucose POC Glucose 183 H Lactic Acid Calcium Magnesium Ferritin Total Bilirubin Direct Bilirubin AST ALT Alkaline Phosphatase Lactate Dehydrogenase C-Reactive Protein Total Protein Albumin Triglycerides Lipase Arterial Blood Glucose 204 H Arterial Blood Ionized Calcium Urine WBC (Auto) Coronavirus (PCR) SARS-CoV-2 IgG Ab Crossmatch 05/30/20 05/31/20 05/31/20 18:01 00:10 03:22 WBC RBC Hgb Hct MCV MCH MCHC RDW Lymph % (Auto) [place] % (Auto) Lymph # (Auto) [place] # (Auto) Baso # (Auto) Seg Neutrophils % Seg Neuts % (Manual) Lymphocytes % (Manual) Nucleated RBC % Seg Neutrophils # Seg Neutrophils # Man Lymphocytes # (Manual) Monocytes # (Manual) Eosinophils # (Manual) PT INR APTT D-Dimer Heparin Anti-Xa Level ABG pH POC ABG pCO2 60.4 H POC ABG pO2 71.5 L ABG pO2 ABG HCO3 ABG O2 Saturation ABG Base Excess ABG Hemoglobin ABG Oxyhemoglobin ABG Sodium ABG Potassium ABG Chloride 96.0 L ABG Glucose 169 H Oxyhemoglobin Carboxyhemoglobin Sodium Potassium Chloride Carbon Dioxide BUN Creatinine Glucose POC Glucose 184 H 135 H Lactic Acid Calcium Magnesium Ferritin Total Bilirubin Direct Bilirubin AST ALT Alkaline Phosphatase Lactate Dehydrogenase C-Reactive Protein Total Protein Albumin Triglycerides Lipase Arterial Blood Glucose 169 H Arterial Blood Ionized Calcium 4.5 L Urine WBC (Auto) Coronavirus (PCR) SARS-CoV-2 IgG Ab Crossmatch 05/31/20 05/31/20 05/31/20 05:24 11:18 14:41 WBC RBC Hgb Hct MCV MCH MCHC RDW Lymph % (Auto) [place] % (Auto) Lymph # (Auto) [place] # (Auto) Baso # (Auto) Seg Neutrophils % Seg Neuts % (Manual) Lymphocytes % (Manual) Nucleated RBC % Seg Neutrophils # Seg Neutrophils # Man Lymphocytes # (Manual) Monocytes # (Manual) Eosinophils # (Manual) PT INR APTT D-Dimer Heparin Anti-Xa Level ABG pH POC ABG pCO2 POC ABG pO2 ABG pO2 ABG HCO3 ABG O2 Saturation ABG Base Excess ABG Hemoglobin ABG Oxyhemoglobin ABG Sodium ABG Potassium ABG Chloride ABG Glucose Oxyhemoglobin Carboxyhemoglobin Sodium Potassium Chloride 96.8 L Carbon Dioxide 37 H BUN 31 H Creatinine 0.6 L Glucose 213 H POC Glucose 164 H 208 H Lactic Acid Calcium Magnesium Ferritin Total Bilirubin Direct Bilirubin AST ALT Alkaline Phosphatase Lactate Dehydrogenase C-Reactive Protein Total Protein Albumin Triglycerides Lipase Arterial Blood Glucose Arterial Blood Ionized Calcium Urine WBC (Auto) Coronavirus (PCR) SARS-CoV-2 IgG Ab Crossmatch 05/31/20 05/31/20 06/01/20 17:37 23:47 03:48 WBC RBC Hgb Hct MCV MCH MCHC RDW Lymph % (Auto) [place] % (Auto) Lymph # (Auto) [place] # (Auto) Baso # (Auto) Seg Neutrophils % Seg Neuts % (Manual) Lymphocytes % (Manual) Nucleated RBC % Seg Neutrophils # Seg Neutrophils # Man Lymphocytes # (Manual) Monocytes # (Manual) Eosinophils # (Manual) PT INR APTT D-Dimer Heparin Anti-Xa Level ABG pH POC ABG pCO2 59.7 H POC ABG pO2 73.9 L ABG pO2 ABG HCO3 ABG O2 Saturation ABG Base Excess ABG Hemoglobin ABG Oxyhemoglobin ABG Sodium ABG Potassium ABG Chloride 95.0 L ABG Glucose 256 H Oxyhemoglobin Carboxyhemoglobin Sodium Potassium Chloride Carbon Dioxide BUN Creatinine Glucose POC Glucose 168 H 178 H Lactic Acid Calcium Magnesium Ferritin Total Bilirubin Direct Bilirubin AST ALT Alkaline Phosphatase Lactate Dehydrogenase C-Reactive Protein Total Protein Albumin Triglycerides Lipase Arterial Blood Glucose 256 H Arterial Blood Ionized Calcium Urine WBC (Auto) Coronavirus (PCR) SARS-CoV-2 IgG Ab Crossmatch 06/01/20 06/01/20 06/01/20 05:01 07:47 07:47 WBC 14.4 H RBC 3.46 L Hgb 11.1 L Hct 34.3 L MCV 99 H MCH MCHC RDW Lymph % (Auto) [place] % (Auto) Lymph # (Auto) [place] # (Auto) Baso # (Auto) Seg Neutrophils % Seg Neuts % (Manual) 86.0 H Lymphocytes % (Manual) 9.0 L Nucleated RBC % Seg Neutrophils # Seg Neutrophils # Man 12.4 H Lymphocytes # (Manual) Monocytes # (Manual) Eosinophils # (Manual) PT INR APTT D-Dimer Heparin Anti-Xa Level ABG pH POC ABG pCO2 POC ABG pO2 ABG pO2 ABG HCO3 ABG O2 Saturation ABG Base Excess ABG Hemoglobin ABG Oxyhemoglobin ABG Sodium ABG Potassium ABG Chloride ABG Glucose Oxyhemoglobin Carboxyhemoglobin Sodium Potassium Chloride Carbon Dioxide BUN Creatinine Glucose POC Glucose 197 H Lactic Acid Calcium Magnesium Ferritin Total Bilirubin Direct Bilirubin AST ALT Alkaline Phosphatase Lactate Dehydrogenase C-Reactive Protein Total Protein Albumin Triglycerides 244 H Lipase Arterial Blood Glucose Arterial Blood Ionized Calcium Urine WBC (Auto) Coronavirus (PCR) SARS-CoV-2 IgG Ab Crossmatch 06/01/20 06/01/20 06/01/20 07:47 11:46 18:15 WBC RBC Hgb Hct MCV MCH MCHC RDW Lymph % (Auto) [place] % (Auto) Lymph # (Auto) [place] # (Auto) Baso # (Auto) Seg Neutrophils % Seg Neuts % (Manual) Lymphocytes % (Manual) Nucleated RBC % Seg Neutrophils # Seg Neutrophils # Man Lymphocytes # (Manual) Monocytes # (Manual) Eosinophils # (Manual) PT INR APTT D-Dimer Heparin Anti-Xa Level ABG pH POC ABG pCO2 POC ABG pO2 ABG pO2 ABG HCO3 ABG O2 Saturation ABG Base Excess ABG Hemoglobin ABG Oxyhemoglobin ABG Sodium ABG Potassium ABG Chloride ABG Glucose Oxyhemoglobin Carboxyhemoglobin Sodium Potassium Chloride 95.4 L Carbon Dioxide 35 H BUN 30 H Creatinine 0.5 L Glucose 214 H POC Glucose 181 H 221 H Lactic Acid Calcium Magnesium Ferritin Total Bilirubin Direct Bilirubin AST 54 H ALT 235 H Alkaline Phosphatase Lactate Dehydrogenase C-Reactive Protein Total Protein Albumin 2.9 L Triglycerides Lipase Arterial Blood Glucose Arterial Blood Ionized Calcium Urine WBC (Auto) Coronavirus (PCR) SARS-CoV-2 IgG Ab Crossmatch 06/01/20 06/02/20 06/02/20 23:12 04:00 05:31 WBC RBC Hgb Hct MCV MCH MCHC RDW Lymph % (Auto) [place] % (Auto) Lymph # (Auto) [place] # (Auto) Baso # (Auto) Seg Neutrophils % Seg Neuts % (Manual) Lymphocytes % (Manual) Nucleated RBC % Seg Neutrophils # Seg Neutrophils # Man Lymphocytes # (Manual) Monocytes # (Manual) Eosinophils # (Manual) PT INR APTT D-Dimer Heparin Anti-Xa Level ABG pH 7.465 H POC ABG pCO2 POC ABG pO2 ABG pO2 203.4 H ABG HCO3 41.2 H ABG O2 Saturation 99.3 H ABG Base Excess 15.1 H ABG Hemoglobin 11.5 L ABG Oxyhemoglobin ABG Sodium ABG Potassium ABG Chloride ABG Glucose Oxyhemoglobin Carboxyhemoglobin Sodium Potassium Chloride Carbon Dioxide BUN Creatinine Glucose POC Glucose 197 H 184 H Lactic Acid Calcium Magnesium Ferritin Total Bilirubin Direct Bilirubin AST ALT Alkaline Phosphatase Lactate Dehydrogenase C-Reactive Protein Total Protein Albumin Triglycerides Lipase Arterial Blood Glucose Arterial Blood Ionized Calcium Urine WBC (Auto) Coronavirus (PCR) SARS-CoV-2 IgG Ab Crossmatch 06/02/20 06/02/20 06/02/20 11:49 18:06 23:00 WBC RBC Hgb Hct MCV MCH MCHC RDW Lymph % (Auto) [place] % (Auto) Lymph # (Auto) [place] # (Auto) Baso # (Auto) Seg Neutrophils % Seg Neuts % (Manual) Lymphocytes % (Manual) Nucleated RBC % Seg Neutrophils # Seg Neutrophils # Man Lymphocytes # (Manual) Monocytes # (Manual) Eosinophils # (Manual) PT INR APTT D-Dimer Heparin Anti-Xa Level ABG pH POC ABG pCO2 POC ABG pO2 ABG pO2 ABG HCO3 ABG O2 Saturation ABG Base Excess ABG Hemoglobin ABG Oxyhemoglobin ABG Sodium ABG Potassium ABG Chloride ABG Glucose Oxyhemoglobin Carboxyhemoglobin Sodium Potassium Chloride Carbon Dioxide BUN Creatinine Glucose POC Glucose 195 H 177 H 228 H Lactic Acid Calcium Magnesium Ferritin Total Bilirubin Direct Bilirubin AST ALT Alkaline Phosphatase Lactate Dehydrogenase C-Reactive Protein Total Protein Albumin Triglycerides Lipase Arterial Blood Glucose Arterial Blood Ionized Calcium Urine WBC (Auto) Coronavirus (PCR) SARS-CoV-2 IgG Ab Crossmatch 06/03/20 06/03/20 06/03/20 03:58 05:19 12:21 WBC RBC Hgb Hct MCV MCH MCHC RDW Lymph % (Auto) [place] % (Auto) Lymph # (Auto) [place] # (Auto) Baso # (Auto) Seg Neutrophils % Seg Neuts % (Manual) Lymphocytes % (Manual) Nucleated RBC % Seg Neutrophils # Seg Neutrophils # Man Lymphocytes # (Manual) Monocytes # (Manual) Eosinophils # (Manual) PT INR APTT D-Dimer Heparin Anti-Xa Level ABG pH POC ABG pCO2 POC ABG pO2 ABG pO2 171.0 H ABG HCO3 42.8 H ABG O2 Saturation ABG Base Excess 15.6 H ABG Hemoglobin 12.3 L ABG Oxyhemoglobin ABG Sodium ABG Potassium ABG Chloride ABG Glucose Oxyhemoglobin Carboxyhemoglobin Sodium Potassium Chloride Carbon Dioxide BUN Creatinine Glucose POC Glucose 122 H 207 H Lactic Acid Calcium Magnesium Ferritin Total Bilirubin Direct Bilirubin AST ALT Alkaline Phosphatase Lactate Dehydrogenase C-Reactive Protein Total Protein Albumin Triglycerides Lipase Arterial Blood Glucose Arterial Blood Ionized Calcium Urine WBC (Auto) Coronavirus (PCR) SARS-CoV-2 IgG Ab Crossmatch 06/03/20 06/03/20 06/04/20 17:27 23:50 03:55 WBC RBC Hgb Hct MCV MCH MCHC RDW Lymph % (Auto) [place] % (Auto) Lymph # (Auto) [place] # (Auto) Baso # (Auto) Seg Neutrophils % Seg Neuts % (Manual) Lymphocytes % (Manual) Nucleated RBC % Seg Neutrophils # Seg Neutrophils # Man Lymphocytes # (Manual) Monocytes # (Manual) Eosinophils # (Manual) PT INR APTT D-Dimer Heparin Anti-Xa Level ABG pH POC ABG pCO2 POC ABG pO2 ABG pO2 117.2 H ABG HCO3 42.4 H ABG O2 Saturation ABG Base Excess 15.3 H ABG Hemoglobin 10.5 L ABG Oxyhemoglobin ABG Sodium ABG Potassium ABG Chloride ABG Glucose Oxyhemoglobin Carboxyhemoglobin Sodium Potassium Chloride Carbon Dioxide BUN Creatinine Glucose POC Glucose 157 H 214 H Lactic Acid Calcium Magnesium Ferritin Total Bilirubin Direct Bilirubin AST ALT Alkaline Phosphatase Lactate Dehydrogenase C-Reactive Protein Total Protein Albumin Triglycerides Lipase Arterial Blood Glucose Arterial Blood Ionized Calcium Urine WBC (Auto) Coronavirus (PCR) SARS-CoV-2 IgG Ab Crossmatch 06/04/20 06/04/20 06/04/20 05:49 11:41 17:30 WBC RBC Hgb Hct MCV MCH MCHC RDW Lymph % (Auto) [place] % (Auto) Lymph # (Auto) [place] # (Auto) Baso # (Auto) Seg Neutrophils % Seg Neuts % (Manual) Lymphocytes % (Manual) Nucleated RBC % Seg Neutrophils # Seg Neutrophils # Man Lymphocytes # (Manual) Monocytes # (Manual) Eosinophils # (Manual) PT INR APTT D-Dimer Heparin Anti-Xa Level ABG pH POC ABG pCO2 POC ABG pO2 ABG pO2 ABG HCO3 ABG O2 Saturation ABG Base Excess ABG Hemoglobin ABG Oxyhemoglobin ABG Sodium ABG Potassium ABG Chloride ABG Glucose Oxyhemoglobin Carboxyhemoglobin Sodium Potassium Chloride Carbon Dioxide BUN Creatinine Glucose POC Glucose 149 H 233 H 156 H Lactic Acid Calcium Magnesium Ferritin Total Bilirubin Direct Bilirubin AST ALT Alkaline Phosphatase Lactate Dehydrogenase C-Reactive Protein Total Protein Albumin Triglycerides Lipase Arterial Blood Glucose Arterial Blood Ionized Calcium Urine WBC (Auto) Coronavirus (PCR) SARS-CoV-2 IgG Ab Crossmatch 06/04/20 06/04/20 06/04/20 19:01 20:53 23:41 WBC RBC 3.18 L Hgb 10.8 L Hct 31.8 L MCV 100 H MCH 34 H MCHC RDW Lymph % (Auto) [place] % (Auto) Lymph # (Auto) [place] # (Auto) Baso # (Auto) Seg Neutrophils % Seg Neuts % (Manual) 86.0 H Lymphocytes % (Manual) 10.0 L Nucleated RBC % 1.0 H Seg Neutrophils # Seg Neutrophils # Man 8.5 H Lymphocytes # (Manual) 1.0 L Monocytes # (Manual) Eosinophils # (Manual) PT INR APTT D-Dimer Heparin Anti-Xa Level ABG pH POC ABG pCO2 POC ABG pO2 ABG pO2 ABG HCO3 ABG O2 Saturation ABG Base Excess ABG Hemoglobin ABG Oxyhemoglobin ABG Sodium ABG Potassium ABG Chloride ABG Glucose Oxyhemoglobin Carboxyhemoglobin Sodium Potassium 3.4 L D Chloride 96.5 L Carbon Dioxide 41 H* BUN 27 H Creatinine 0.5 L Glucose 173 H POC Glucose 217 H Lactic Acid Calcium Magnesium Ferritin Total Bilirubin Direct Bilirubin AST ALT Alkaline Phosphatase Lactate Dehydrogenase C-Reactive Protein Total Protein Albumin Triglycerides Lipase Arterial Blood Glucose Arterial Blood Ionized Calcium Urine WBC (Auto) Coronavirus (PCR) SARS-CoV-2 IgG Ab Crossmatch 06/05/20 06/05/20 06/05/20 06:05 11:54 12:35 WBC RBC Hgb Hct MCV MCH MCHC RDW Lymph % (Auto) [place] % (Auto) Lymph # (Auto) [place] # (Auto) Baso # (Auto) Seg Neutrophils % Seg Neuts % (Manual) Lymphocytes % (Manual) Nucleated RBC % Seg Neutrophils # Seg Neutrophils # Man Lymphocytes # (Manual) Monocytes # (Manual) Eosinophils # (Manual) PT INR APTT D-Dimer Heparin Anti-Xa Level ABG pH POC ABG pCO2 POC ABG pO2 ABG pO2 127.9 H ABG HCO3 41.1 H ABG O2 Saturation ABG Base Excess 13.0 H ABG Hemoglobin 13.4 L ABG Oxyhemoglobin ABG Sodium ABG Potassium ABG Chloride ABG Glucose Oxyhemoglobin Carboxyhemoglobin Sodium Potassium Chloride Carbon Dioxide BUN Creatinine Glucose POC Glucose 137 H 211 H Lactic Acid Calcium Magnesium Ferritin Total Bilirubin Direct Bilirubin AST ALT Alkaline Phosphatase Lactate Dehydrogenase C-Reactive Protein Total Protein Albumin Triglycerides Lipase Arterial Blood Glucose Arterial Blood Ionized Calcium Urine WBC (Auto) Coronavirus (PCR) SARS-CoV-2 IgG Ab Crossmatch 06/05/20 06/05/20 06/06/20 17:03 23:49 04:42 WBC RBC Hgb Hct MCV MCH MCHC RDW Lymph % (Auto) [place] % (Auto) Lymph # (Auto) [place] # (Auto) Baso # (Auto) Seg Neutrophils % Seg Neuts % (Manual) Lymphocytes % (Manual) Nucleated RBC % Seg Neutrophils # Seg Neutrophils # Man Lymphocytes # (Manual) Monocytes # (Manual) Eosinophils # (Manual) PT INR APTT D-Dimer Heparin Anti-Xa Level ABG pH POC ABG pCO2 56.1 H POC ABG pO2 52.5 L ABG pO2 ABG HCO3 ABG O2 Saturation ABG Base Excess ABG Hemoglobin 11.7 L ABG Oxyhemoglobin ABG Sodium ABG Potassium 3.3 L ABG Chloride 95.0 L ABG Glucose 156 H Oxyhemoglobin Carboxyhemoglobin Sodium Potassium Chloride Carbon Dioxide BUN Creatinine Glucose POC Glucose 159 H 194 H Lactic Acid Calcium Magnesium Ferritin Total Bilirubin Direct Bilirubin AST ALT Alkaline Phosphatase Lactate Dehydrogenase C-Reactive Protein Total Protein Albumin Triglycerides Lipase Arterial Blood Glucose 156 H Arterial Blood Ionized Calcium Urine WBC (Auto) Coronavirus (PCR) SARS-CoV-2 IgG Ab Crossmatch 06/06/20 06/06/20 06/06/20 05:57 12:06 17:38 WBC RBC Hgb Hct MCV MCH MCHC RDW Lymph % (Auto) [place] % (Auto) Lymph # (Auto) [place] # (Auto) Baso # (Auto) Seg Neutrophils % Seg Neuts % (Manual) Lymphocytes % (Manual) Nucleated RBC % Seg Neutrophils # Seg Neutrophils # Man Lymphocytes # (Manual) Monocytes # (Manual) Eosinophils # (Manual) PT INR APTT D-Dimer Heparin Anti-Xa Level ABG pH POC ABG pCO2 POC ABG pO2 ABG pO2 ABG HCO3 ABG O2 Saturation ABG Base Excess ABG Hemoglobin ABG Oxyhemoglobin ABG Sodium ABG Potassium ABG Chloride ABG Glucose Oxyhemoglobin Carboxyhemoglobin Sodium Potassium Chloride Carbon Dioxide BUN Creatinine Glucose POC Glucose 144 H 230 H 162 H Lactic Acid Calcium Magnesium Ferritin Total Bilirubin Direct Bilirubin AST ALT Alkaline Phosphatase Lactate Dehydrogenase C-Reactive Protein Total Protein Albumin Triglycerides Lipase Arterial Blood Glucose Arterial Blood Ionized Calcium Urine WBC (Auto) Coronavirus (PCR) SARS-CoV-2 IgG Ab Crossmatch 06/06/20 06/07/20 06/07/20 23:50 04:34 06:03 WBC RBC Hgb Hct MCV MCH MCHC RDW Lymph % (Auto) [place] % (Auto) Lymph # (Auto) [place] # (Auto) Baso # (Auto) Seg Neutrophils % Seg Neuts % (Manual) Lymphocytes % (Manual) Nucleated RBC % Seg Neutrophils # Seg Neutrophils # Man Lymphocytes # (Manual) Monocytes # (Manual) Eosinophils # (Manual) PT INR APTT D-Dimer Heparin Anti-Xa Level ABG pH 7.511 H POC ABG pCO2 53.5 H POC ABG pO2 114.5 H ABG pO2 ABG HCO3 ABG O2 Saturation ABG Base Excess ABG Hemoglobin 9.4 L ABG Oxyhemoglobin ABG Sodium 134.5 L ABG Potassium ABG Chloride 94.0 L ABG Glucose 186 H Oxyhemoglobin Carboxyhemoglobin Sodium Potassium Chloride Carbon Dioxide BUN Creatinine Glucose POC Glucose 181 H 155 H Lactic Acid Calcium Magnesium Ferritin Total Bilirubin Direct Bilirubin AST ALT Alkaline Phosphatase Lactate Dehydrogenase C-Reactive Protein Total Protein Albumin Triglycerides Lipase Arterial Blood Glucose 186 H Arterial Blood Ionized Calcium 4.5 L Urine WBC (Auto) Coronavirus (PCR) SARS-CoV-2 IgG Ab Crossmatch 06/07/20 06/07/20 06/07/20 13:41 14:58 14:58 WBC RBC 2.72 L Hgb 9.3 L Hct 27.2 L MCV 100 H MCH 34 H MCHC RDW Lymph % (Auto) [place] % (Auto) Lymph # (Auto) [place] # (Auto) Baso # (Auto) Seg Neutrophils % Seg Neuts % (Manual) Lymphocytes % (Manual) Nucleated RBC % Seg Neutrophils # Seg Neutrophils # Man Lymphocytes # (Manual) Monocytes # (Manual) Eosinophils # (Manual) PT INR APTT D-Dimer Heparin Anti-Xa Level ABG pH POC ABG pCO2 POC ABG pO2 ABG pO2 ABG HCO3 ABG O2 Saturation ABG Base Excess ABG Hemoglobin ABG Oxyhemoglobin ABG Sodium ABG Potassium ABG Chloride ABG Glucose Oxyhemoglobin Carboxyhemoglobin Sodium Potassium Chloride 93.5 L Carbon Dioxide 39 H BUN 22 H Creatinine 0.4 L Glucose 188 H POC Glucose 201 H Lactic Acid Calcium Magnesium Ferritin Total Bilirubin Direct Bilirubin AST 61 H ALT 273 H Alkaline Phosphatase Lactate Dehydrogenase C-Reactive Protein Total Protein 5.9 L Albumin 2.7 L Triglycerides Lipase Arterial Blood Glucose Arterial Blood Ionized Calcium Urine WBC (Auto) Coronavirus (PCR) SARS-CoV-2 IgG Ab Crossmatch 06/07/20 06/08/20 06/08/20 23:18 05:31 12:07 WBC RBC Hgb Hct MCV MCH MCHC RDW Lymph % (Auto) [place] % (Auto) Lymph # (Auto) [place] # (Auto) Baso # (Auto) Seg Neutrophils % Seg Neuts % (Manual) Lymphocytes % (Manual) Nucleated RBC % Seg Neutrophils # Seg Neutrophils # Man Lymphocytes # (Manual) Monocytes # (Manual) Eosinophils # (Manual) PT INR APTT D-Dimer Heparin Anti-Xa Level ABG pH POC ABG pCO2 POC ABG pO2 ABG pO2 ABG HCO3 ABG O2 Saturation ABG Base Excess ABG Hemoglobin ABG Oxyhemoglobin ABG Sodium ABG Potassium ABG Chloride ABG Glucose Oxyhemoglobin Carboxyhemoglobin Sodium Potassium Chloride Carbon Dioxide BUN Creatinine Glucose POC Glucose 214 H 129 H 179 H Lactic Acid Calcium Magnesium Ferritin Total Bilirubin Direct Bilirubin AST ALT Alkaline Phosphatase Lactate Dehydrogenase C-Reactive Protein Total Protein Albumin Triglycerides Lipase Arterial Blood Glucose Arterial Blood Ionized Calcium Urine WBC (Auto) Coronavirus (PCR) SARS-CoV-2 IgG Ab Crossmatch 06/08/20 06/08/20 06/09/20 18:18 23:35 05:42 WBC RBC Hgb Hct MCV MCH MCHC RDW Lymph % (Auto) [place] % (Auto) Lymph # (Auto) [place] # (Auto) Baso # (Auto) Seg Neutrophils % Seg Neuts % (Manual) Lymphocytes % (Manual) Nucleated RBC % Seg Neutrophils # Seg Neutrophils # Man Lymphocytes # (Manual) Monocytes # (Manual) Eosinophils # (Manual) PT INR APTT D-Dimer Heparin Anti-Xa Level ABG pH POC ABG pCO2 POC ABG pO2 ABG pO2 ABG HCO3 ABG O2 Saturation ABG Base Excess ABG Hemoglobin ABG Oxyhemoglobin ABG Sodium ABG Potassium ABG Chloride ABG Glucose Oxyhemoglobin Carboxyhemoglobin Sodium Potassium Chloride Carbon Dioxide BUN Creatinine Glucose POC Glucose 172 H 177 H 137 H Lactic Acid Calcium Magnesium Ferritin Total Bilirubin Direct Bilirubin AST ALT Alkaline Phosphatase Lactate Dehydrogenase C-Reactive Protein Total Protein Albumin Triglycerides Lipase Arterial Blood Glucose Arterial Blood Ionized Calcium Urine WBC (Auto) Coronavirus (PCR) SARS-CoV-2 IgG Ab Crossmatch 06/09/20 06/09/20 06/09/20 06:20 07:55 07:55 WBC 12.4 H RBC 3.26 L Hgb 11.1 L Hct 33.4 L D MCV 102 H MCH 34 H MCHC RDW Lymph % (Auto) [place] % (Auto) Lymph # (Auto) [place] # (Auto) Baso # (Auto) Seg Neutrophils % Seg Neuts % (Manual) Lymphocytes % (Manual) Nucleated RBC % Seg Neutrophils # Seg Neutrophils # Man Lymphocytes # (Manual) Monocytes # (Manual) Eosinophils # (Manual) PT INR APTT D-Dimer Heparin Anti-Xa Level ABG pH 7.466 H POC ABG pCO2 50.7 H POC ABG pO2 53.0 L ABG pO2 ABG HCO3 ABG O2 Saturation ABG Base Excess ABG Hemoglobin ABG Oxyhemoglobin ABG Sodium ABG Potassium 2.9 L ABG Chloride 93.0 L ABG Glucose 138 H Oxyhemoglobin Carboxyhemoglobin Sodium Potassium 3.0 L Chloride 92.3 L Carbon Dioxide 37 H BUN 21 H Creatinine 0.6 L Glucose 120 H POC Glucose Lactic Acid Calcium Magnesium Ferritin Total Bilirubin Direct Bilirubin AST ALT Alkaline Phosphatase Lactate Dehydrogenase C-Reactive Protein Total Protein Albumin Triglycerides Lipase Arterial Blood Glucose 138 H Arterial Blood Ionized Calcium 4.5 L Urine WBC (Auto) Coronavirus (PCR) SARS-CoV-2 IgG Ab Crossmatch 06/09/20 06/09/20 06/10/20 11:22 18:32 04:46 WBC RBC Hgb Hct MCV MCH MCHC RDW Lymph % (Auto) [place] % (Auto) Lymph # (Auto) [place] # (Auto) Baso # (Auto) Seg Neutrophils % Seg Neuts % (Manual) Lymphocytes % (Manual) Nucleated RBC % Seg Neutrophils # Seg Neutrophils # Man Lymphocytes # (Manual) Monocytes # (Manual) Eosinophils # (Manual) PT INR APTT D-Dimer Heparin Anti-Xa Level ABG pH 7.501 H POC ABG pCO2 POC ABG pO2 126.5 H ABG pO2 ABG HCO3 ABG O2 Saturation ABG Base Excess ABG Hemoglobin 10.3 L ABG Oxyhemoglobin ABG Sodium ABG Potassium ABG Chloride ABG Glucose 220 H Oxyhemoglobin Carboxyhemoglobin Sodium Potassium Chloride Carbon Dioxide BUN Creatinine Glucose POC Glucose 117 H 121 H Lactic Acid Calcium Magnesium Ferritin Total Bilirubin Direct Bilirubin AST ALT Alkaline Phosphatase Lactate Dehydrogenase C-Reactive Protein Total Protein Albumin Triglycerides Lipase Arterial Blood Glucose 220 H Arterial Blood Ionized Calcium Urine WBC (Auto) Coronavirus (PCR) SARS-CoV-2 IgG Ab Crossmatch 06/10/20 06/10/20 06/10/20 05:30 09:38 12:03 WBC RBC Hgb Hct MCV MCH MCHC RDW Lymph % (Auto) [place] % (Auto) Lymph # (Auto) [place] # (Auto) Baso # (Auto) Seg Neutrophils % Seg Neuts % (Manual) Lymphocytes % (Manual) Nucleated RBC % Seg Neutrophils # Seg Neutrophils # Man Lymphocytes # (Manual) Monocytes # (Manual) Eosinophils # (Manual) PT INR APTT D-Dimer Heparin Anti-Xa Level ABG pH POC ABG pCO2 POC ABG pO2 ABG pO2 ABG HCO3 ABG O2 Saturation ABG Base Excess ABG Hemoglobin ABG Oxyhemoglobin ABG Sodium ABG Potassium ABG Chloride ABG Glucose Oxyhemoglobin Carboxyhemoglobin Sodium Potassium Chloride Carbon Dioxide BUN Creatinine Glucose POC Glucose 181 H 204 H Lactic Acid Calcium Magnesium Ferritin Total Bilirubin Direct Bilirubin AST ALT Alkaline Phosphatase Lactate Dehydrogenase C-Reactive Protein Total Protein Albumin Triglycerides 738 H Lipase Arterial Blood Glucose Arterial Blood Ionized Calcium Urine WBC (Auto) Coronavirus (PCR) SARS-CoV-2 IgG Ab Crossmatch 06/10/20 06/11/20 06/11/20 17:17 00:04 04:38 WBC RBC Hgb Hct MCV MCH MCHC RDW Lymph % (Auto) [place] % (Auto) Lymph # (Auto) [place] # (Auto) Baso # (Auto) Seg Neutrophils % Seg Neuts % (Manual) Lymphocytes % (Manual) Nucleated RBC % Seg Neutrophils # Seg Neutrophils # Man Lymphocytes # (Manual) Monocytes # (Manual) Eosinophils # (Manual) PT INR APTT D-Dimer Heparin Anti-Xa Level ABG pH 7.479 H POC ABG pCO2 POC ABG pO2 76.7 L ABG pO2 ABG HCO3 ABG O2 Saturation ABG Base Excess ABG Hemoglobin 9.8 L ABG Oxyhemoglobin ABG Sodium 135.8 L ABG Potassium ABG Chloride ABG Glucose 238 H Oxyhemoglobin Carboxyhemoglobin Sodium Potassium Chloride Carbon Dioxide BUN Creatinine Glucose POC Glucose 156 H 178 H Lactic Acid Calcium Magnesium Ferritin Total Bilirubin Direct Bilirubin AST ALT Alkaline Phosphatase Lactate Dehydrogenase C-Reactive Protein Total Protein Albumin Triglycerides Lipase Arterial Blood Glucose 238 H Arterial Blood Ionized Calcium Urine WBC (Auto) Coronavirus (PCR) SARS-CoV-2 IgG Ab Crossmatch 06/11/20 06/11/20 06/11/20 05:21 06:52 11:50 WBC RBC Hgb Hct MCV MCH MCHC RDW Lymph % (Auto) [place] % (Auto) Lymph # (Auto) [place] # (Auto) Baso # (Auto) Seg Neutrophils % Seg Neuts % (Manual) Lymphocytes % (Manual) Nucleated RBC % Seg Neutrophils # Seg Neutrophils # Man Lymphocytes # (Manual) Monocytes # (Manual) Eosinophils # (Manual) PT INR APTT D-Dimer Heparin Anti-Xa Level ABG pH POC ABG pCO2 POC ABG pO2 ABG pO2 ABG HCO3 ABG O2 Saturation ABG Base Excess ABG Hemoglobin ABG Oxyhemoglobin ABG Sodium ABG Potassium ABG Chloride ABG Glucose Oxyhemoglobin Carboxyhemoglobin Sodium Potassium Chloride Carbon Dioxide BUN Creatinine Glucose POC Glucose 215 H 187 H Lactic Acid Calcium Magnesium Ferritin Total Bilirubin Direct Bilirubin AST ALT Alkaline Phosphatase Lactate Dehydrogenase C-Reactive Protein Total Protein Albumin Triglycerides 331 H Lipase Arterial Blood Glucose Arterial Blood Ionized Calcium Urine WBC (Auto) Coronavirus (PCR) SARS-CoV-2 IgG Ab Crossmatch 06/11/20 06/11/20 06/12/20 17:49 23:35 04:52 WBC RBC Hgb Hct MCV MCH MCHC RDW Lymph % (Auto) [place] % (Auto) Lymph # (Auto) [place] # (Auto) Baso # (Auto) Seg Neutrophils % Seg Neuts % (Manual) Lymphocytes % (Manual) Nucleated RBC % Seg Neutrophils # Seg Neutrophils # Man Lymphocytes # (Manual) Monocytes # (Manual) Eosinophils # (Manual) PT INR APTT D-Dimer Heparin Anti-Xa Level ABG pH 7.486 H POC ABG pCO2 POC ABG pO2 ABG pO2 ABG HCO3 ABG O2 Saturation ABG Base Excess ABG Hemoglobin 9.4 L ABG Oxyhemoglobin ABG Sodium ABG Potassium 3.2 L ABG Chloride ABG Glucose 209 H Oxyhemoglobin Carboxyhemoglobin Sodium Potassium Chloride Carbon Dioxide BUN Creatinine Glucose POC Glucose 211 H 200 H Lactic Acid Calcium Magnesium Ferritin Total Bilirubin Direct Bilirubin AST ALT Alkaline Phosphatase Lactate Dehydrogenase C-Reactive Protein Total Protein Albumin Triglycerides Lipase Arterial Blood Glucose 209 H Arterial Blood Ionized Calcium Urine WBC (Auto) Coronavirus (PCR) SARS-CoV-2 IgG Ab Crossmatch 06/12/20 06/12/20 06/12/20 05:13 11:47 18:33 WBC RBC Hgb Hct MCV MCH MCHC RDW Lymph % (Auto) [place] % (Auto) Lymph # (Auto) [place] # (Auto) Baso # (Auto) Seg Neutrophils % Seg Neuts % (Manual) Lymphocytes % (Manual) Nucleated RBC % Seg Neutrophils # Seg Neutrophils # Man Lymphocytes # (Manual) Monocytes # (Manual) Eosinophils # (Manual) PT INR APTT D-Dimer Heparin Anti-Xa Level ABG pH POC ABG pCO2 POC ABG pO2 ABG pO2 ABG HCO3 ABG O2 Saturation ABG Base Excess ABG Hemoglobin ABG Oxyhemoglobin ABG Sodium ABG Potassium ABG Chloride ABG Glucose Oxyhemoglobin Carboxyhemoglobin Sodium Potassium Chloride Carbon Dioxide BUN Creatinine Glucose POC Glucose 174 H 214 H 194 H Lactic Acid Calcium Magnesium Ferritin Total Bilirubin Direct Bilirubin AST ALT Alkaline Phosphatase Lactate Dehydrogenase C-Reactive Protein Total Protein Albumin Triglycerides Lipase Arterial Blood Glucose Arterial Blood Ionized Calcium Urine WBC (Auto) Coronavirus (PCR) SARS-CoV-2 IgG Ab Crossmatch 06/12/20 06/13/20 06/13/20 23:49 05:41 12:30 WBC RBC Hgb Hct MCV MCH MCHC RDW Lymph % (Auto) [place] % (Auto) Lymph # (Auto) [place] # (Auto) Baso # (Auto) Seg Neutrophils % Seg Neuts % (Manual) Lymphocytes % (Manual) Nucleated RBC % Seg Neutrophils # Seg Neutrophils # Man Lymphocytes # (Manual) Monocytes # (Manual) Eosinophils # (Manual) PT INR APTT D-Dimer Heparin Anti-Xa Level ABG pH POC ABG pCO2 POC ABG pO2 ABG pO2 ABG HCO3 ABG O2 Saturation ABG Base Excess ABG Hemoglobin ABG Oxyhemoglobin ABG Sodium ABG Potassium ABG Chloride ABG Glucose Oxyhemoglobin Carboxyhemoglobin Sodium Potassium Chloride Carbon Dioxide BUN Creatinine Glucose POC Glucose 160 H 150 H 181 H Lactic Acid Calcium Magnesium Ferritin Total Bilirubin Direct Bilirubin AST ALT Alkaline Phosphatase Lactate Dehydrogenase C-Reactive Protein Total Protein Albumin Triglycerides Lipase Arterial Blood Glucose Arterial Blood Ionized Calcium Urine WBC (Auto) Coronavirus (PCR) SARS-CoV-2 IgG Ab Crossmatch 06/13/20 06/13/20 06/13/20 14:14 17:48 23:27 WBC 12.8 H RBC 2.33 L Hgb 8.0 L Hct 23.3 L MCV 100 H MCH 34 H MCHC RDW 15.7 H Lymph % (Auto) [place] % (Auto) Lymph # (Auto) [place] # (Auto) Baso # (Auto) Seg Neutrophils % Seg Neuts % (Manual) 85.0 H Lymphocytes % (Manual) 10.0 L Nucleated RBC % Seg Neutrophils # Seg Neutrophils # Man 10.9 H Lymphocytes # (Manual) Monocytes # (Manual) Eosinophils # (Manual) PT INR APTT D-Dimer Heparin Anti-Xa Level ABG pH POC ABG pCO2 POC ABG pO2 ABG pO2 ABG HCO3 ABG O2 Saturation ABG Base Excess ABG Hemoglobin ABG Oxyhemoglobin ABG Sodium ABG Potassium ABG Chloride ABG Glucose Oxyhemoglobin Carboxyhemoglobin Sodium Potassium Chloride Carbon Dioxide BUN Creatinine Glucose POC Glucose 173 H 154 H Lactic Acid Calcium Magnesium Ferritin Total Bilirubin Direct Bilirubin AST ALT Alkaline Phosphatase Lactate Dehydrogenase C-Reactive Protein Total Protein Albumin Triglycerides Lipase Arterial Blood Glucose Arterial Blood Ionized Calcium Urine WBC (Auto) Coronavirus (PCR) SARS-CoV-2 IgG Ab Crossmatch 06/14/20 06/14/20 06/14/20 03:58 05:21 07:15 WBC 26.2 H RBC 2.97 L Hgb 9.7 L Hct 29.9 L D MCV 101 H MCH 33 H MCHC RDW 15.3 H Lymph % (Auto) [place] % (Auto) Lymph # (Auto) [place] # (Auto) Baso # (Auto) Seg Neutrophils % Seg Neuts % (Manual) 79.0 H Lymphocytes % (Manual) 5.0 L Nucleated RBC % 3.0 H Seg Neutrophils # Seg Neutrophils # Man 20.7 H Lymphocytes # (Manual) Monocytes # (Manual) 1.3 H Eosinophils # (Manual) PT INR APTT D-Dimer Heparin Anti-Xa Level ABG pH POC ABG pCO2 51.5 H POC ABG pO2 70.0 L ABG pO2 ABG HCO3 ABG O2 Saturation ABG Base Excess ABG Hemoglobin 10.1 L ABG Oxyhemoglobin ABG Sodium 131.5 L ABG Potassium 3.1 L ABG Chloride 93.0 L ABG Glucose 188 H Oxyhemoglobin Carboxyhemoglobin Sodium Potassium Chloride Carbon Dioxide BUN Creatinine Glucose POC Glucose 147 H Lactic Acid Calcium Magnesium Ferritin Total Bilirubin Direct Bilirubin AST ALT Alkaline Phosphatase Lactate Dehydrogenase C-Reactive Protein Total Protein Albumin Triglycerides Lipase Arterial Blood Glucose 188 H Arterial Blood Ionized Calcium Urine WBC (Auto) Coronavirus (PCR) SARS-CoV-2 IgG Ab Crossmatch 06/14/20 06/14/20 06/14/20 07:15 11:30 11:50 WBC RBC Hgb Hct MCV MCH MCHC RDW Lymph % (Auto) [place] % (Auto) Lymph # (Auto) [place] # (Auto) Baso # (Auto) Seg Neutrophils % Seg Neuts % (Manual) Lymphocytes % (Manual) Nucleated RBC % Seg Neutrophils # Seg Neutrophils # Man Lymphocytes # (Manual) Monocytes # (Manual) Eosinophils # (Manual) PT INR APTT D-Dimer Heparin Anti-Xa Level ABG pH POC ABG pCO2 POC ABG pO2 ABG pO2 ABG HCO3 ABG O2 Saturation ABG Base Excess ABG Hemoglobin ABG Oxyhemoglobin ABG Sodium ABG Potassium ABG Chloride ABG Glucose Oxyhemoglobin Carboxyhemoglobin Sodium 135 L Potassium 3.5 L Chloride 90.4 L Carbon Dioxide 38 H BUN Creatinine 0.5 L Glucose 190 H POC Glucose 176 H Lactic Acid Calcium Magnesium Ferritin 1496.0 H Total Bilirubin Direct Bilirubin AST ALT 81 H Alkaline Phosphatase Lactate Dehydrogenase C-Reactive Protein Total Protein Albumin 2.9 L Triglycerides Lipase Arterial Blood Glucose Arterial Blood Ionized Calcium Urine WBC (Auto) Coronavirus (PCR) SARS-CoV-2 IgG Ab Crossmatch 06/14/20 06/15/20 06/15/20 23:31 04:00 05:00 WBC RBC Hgb Hct MCV MCH MCHC RDW Lymph % (Auto) [place] % (Auto) Lymph # (Auto) [place] # (Auto) Baso # (Auto) Seg Neutrophils % Seg Neuts % (Manual) Lymphocytes % (Manual) Nucleated RBC % Seg Neutrophils # Seg Neutrophils # Man Lymphocytes # (Manual) Monocytes # (Manual) Eosinophils # (Manual) PT INR APTT D-Dimer Heparin Anti-Xa Level ABG pH POC ABG pCO2 POC ABG pO2 ABG pO2 ABG HCO3 ABG O2 Saturation ABG Base Excess ABG Hemoglobin ABG Oxyhemoglobin ABG Sodium ABG Potassium ABG Chloride ABG Glucose Oxyhemoglobin Carboxyhemoglobin Sodium 133 L Potassium Chloride 91.1 L Carbon Dioxide 34 H BUN Creatinine 0.4 L Glucose 159 H POC Glucose 200 H Lactic Acid Calcium Magnesium Ferritin Total Bilirubin 2.00 H Direct Bilirubin AST 47 H ALT 77 H Alkaline Phosphatase Lactate Dehydrogenase C-Reactive Protein Total Protein Albumin 2.6 L Triglycerides 152 H Lipase Arterial Blood Glucose Arterial Blood Ionized Calcium Urine WBC (Auto) Coronavirus (PCR) SARS-CoV-2 IgG Ab Crossmatch 06/15/20 06/15/20 06/15/20 05:35 06:27 11:38 WBC RBC Hgb Hct MCV MCH MCHC RDW Lymph % (Auto) [place] % (Auto) Lymph # (Auto) [place] # (Auto) Baso # (Auto) Seg Neutrophils % Seg Neuts % (Manual) Lymphocytes % (Manual) Nucleated RBC % Seg Neutrophils # Seg Neutrophils # Man Lymphocytes # (Manual) Monocytes # (Manual) Eosinophils # (Manual) PT INR APTT D-Dimer Heparin Anti-Xa Level ABG pH POC ABG pCO2 61.0 H POC ABG pO2 67.9 L ABG pO2 ABG HCO3 ABG O2 Saturation ABG Base Excess ABG Hemoglobin 10.4 L ABG Oxyhemoglobin ABG Sodium 132.7 L ABG Potassium 3.3 L ABG Chloride 92.0 L ABG Glucose 158 H Oxyhemoglobin Carboxyhemoglobin Sodium Potassium Chloride Carbon Dioxide BUN Creatinine Glucose POC Glucose 148 H 197 H Lactic Acid Calcium Magnesium Ferritin Total Bilirubin Direct Bilirubin AST ALT Alkaline Phosphatase Lactate Dehydrogenase C-Reactive Protein Total Protein Albumin Triglycerides Lipase Arterial Blood Glucose 158 H Arterial Blood Ionized Calcium Urine WBC (Auto) Coronavirus (PCR) SARS-CoV-2 IgG Ab Crossmatch 06/15/20 06/15/20 06/16/20 17:29 Unknown 00:01 WBC 20.7 H RBC 2.57 L Hgb 8.9 L Hct 25.8 L MCV 101 H MCH 35 H MCHC 35 H RDW 16.0 H Lymph % (Auto) [place] % (Auto) Lymph # (Auto) [place] # (Auto) Baso # (Auto) Seg Neutrophils % Seg Neuts % (Manual) 83.0 H Lymphocytes % (Manual) 8.0 L Nucleated RBC % Seg Neutrophils # Seg Neutrophils # Man 17.2 H Lymphocytes # (Manual) Monocytes # (Manual) 1.2 H Eosinophils # (Manual) PT INR APTT D-Dimer Heparin Anti-Xa Level ABG pH POC ABG pCO2 POC ABG pO2 ABG pO2 ABG HCO3 ABG O2 Saturation ABG Base Excess ABG Hemoglobin ABG Oxyhemoglobin ABG Sodium ABG Potassium ABG Chloride ABG Glucose Oxyhemoglobin Carboxyhemoglobin Sodium Potassium Chloride Carbon Dioxide BUN Creatinine Glucose POC Glucose 231 H 257 H Lactic Acid Calcium Magnesium Ferritin Total Bilirubin Direct Bilirubin AST ALT Alkaline Phosphatase Lactate Dehydrogenase C-Reactive Protein Total Protein Albumin Triglycerides Lipase Arterial Blood Glucose Arterial Blood Ionized Calcium Urine WBC (Auto) Coronavirus (PCR) SARS-CoV-2 IgG Ab Crossmatch 06/16/20 06/16/20 06/16/20 04:00 04:00 05:22 WBC 13.8 H RBC 2.03 L Hgb 7.6 L Hct 20.7 L MCV 102 H MCH 37 H MCHC 37 H RDW 16.2 H Lymph % (Auto) 4.4 L [place] % (Auto) Lymph # (Auto) 0.6 L [place] # (Auto) Baso # (Auto) Seg Neutrophils % Seg Neuts % (Manual) Lymphocytes % (Manual) Nucleated RBC % Seg Neutrophils # 12.7 H Seg Neutrophils # Man Lymphocytes # (Manual) Monocytes # (Manual) Eosinophils # (Manual) PT INR APTT D-Dimer Heparin Anti-Xa Level ABG pH POC ABG pCO2 POC ABG pO2 ABG pO2 ABG HCO3 ABG O2 Saturation ABG Base Excess ABG Hemoglobin ABG Oxyhemoglobin ABG Sodium ABG Potassium ABG Chloride ABG Glucose Oxyhemoglobin Carboxyhemoglobin Sodium 130 L Potassium Chloride 88.9 L Carbon Dioxide 36 H BUN Creatinine 0.3 L Glucose 276 H POC Glucose 250 H Lactic Acid Calcium Magnesium Ferritin Total Bilirubin Direct Bilirubin AST ALT Alkaline Phosphatase Lactate Dehydrogenase C-Reactive Protein Total Protein Albumin Triglycerides Lipase Arterial Blood Glucose Arterial Blood Ionized Calcium Urine WBC (Auto) Coronavirus (PCR) SARS-CoV-2 IgG Ab Crossmatch 06/16/20 06/16/20 06/17/20 12:44 18:18 00:39 WBC RBC Hgb Hct MCV MCH MCHC RDW Lymph % (Auto) [place] % (Auto) Lymph # (Auto) [place] # (Auto) Baso # (Auto) Seg Neutrophils % Seg Neuts % (Manual) Lymphocytes % (Manual) Nucleated RBC % Seg Neutrophils # Seg Neutrophils # Man Lymphocytes # (Manual) Monocytes # (Manual) Eosinophils # (Manual) PT INR APTT D-Dimer Heparin Anti-Xa Level ABG pH POC ABG pCO2 POC ABG pO2 ABG pO2 ABG HCO3 ABG O2 Saturation ABG Base Excess ABG Hemoglobin ABG Oxyhemoglobin ABG Sodium ABG Potassium ABG Chloride ABG Glucose Oxyhemoglobin Carboxyhemoglobin Sodium Potassium Chloride Carbon Dioxide BUN Creatinine Glucose POC Glucose 279 H 239 H 247 H Lactic Acid Calcium Magnesium Ferritin Total Bilirubin Direct Bilirubin AST ALT Alkaline Phosphatase Lactate Dehydrogenase C-Reactive Protein Total Protein Albumin Triglycerides Lipase Arterial Blood Glucose Arterial Blood Ionized Calcium Urine WBC (Auto) Coronavirus (PCR) SARS-CoV-2 IgG Ab Crossmatch 06/17/20 06/17/20 06/17/20 03:40 04:08 10:54 WBC RBC Hgb Hct MCV MCH MCHC RDW Lymph % (Auto) [place] % (Auto) Lymph # (Auto) [place] # (Auto) Baso # (Auto) Seg Neutrophils % Seg Neuts % (Manual) Lymphocytes % (Manual) Nucleated RBC % Seg Neutrophils # Seg Neutrophils # Man Lymphocytes # (Manual) Monocytes # (Manual) Eosinophils # (Manual) PT INR APTT D-Dimer Heparin Anti-Xa Level ABG pH POC ABG pCO2 65.7 H POC ABG pO2 ABG pO2 ABG HCO3 ABG O2 Saturation ABG Base Excess ABG Hemoglobin 11.9 L ABG Oxyhemoglobin ABG Sodium ABG Potassium ABG Chloride 93.0 L ABG Glucose 244 H Oxyhemoglobin Carboxyhemoglobin Sodium Potassium Chloride Carbon Dioxide BUN Creatinine Glucose POC Glucose 221 H 248 H Lactic Acid Calcium Magnesium Ferritin Total Bilirubin Direct Bilirubin AST ALT Alkaline Phosphatase Lactate Dehydrogenase C-Reactive Protein Total Protein Albumin Triglycerides Lipase Arterial Blood Glucose 244 H Arterial Blood Ionized Calcium Urine WBC (Auto) Coronavirus (PCR) SARS-CoV-2 IgG Ab Crossmatch 06/17/20 06/17/20 06/17/20 17:47 23:11 23:29 WBC RBC Hgb Hct MCV MCH MCHC RDW Lymph % (Auto) [place] % (Auto) Lymph # (Auto) [place] # (Auto) Baso # (Auto) Seg Neutrophils % Seg Neuts % (Manual) Lymphocytes % (Manual) Nucleated RBC % Seg Neutrophils # Seg Neutrophils # Man Lymphocytes # (Manual) Monocytes # (Manual) Eosinophils # (Manual) PT INR APTT D-Dimer Heparin Anti-Xa Level ABG pH POC ABG pCO2 85.2 H POC ABG pO2 48.4 L ABG pO2 ABG HCO3 ABG O2 Saturation ABG Base Excess ABG Hemoglobin 8.0 L ABG Oxyhemoglobin ABG Sodium ABG Potassium ABG Chloride 95.0 L ABG Glucose 292 H Oxyhemoglobin Carboxyhemoglobin Sodium Potassium Chloride Carbon Dioxide BUN Creatinine Glucose POC Glucose 245 H 252 H Lactic Acid Calcium Magnesium Ferritin Total Bilirubin Direct Bilirubin AST ALT Alkaline Phosphatase Lactate Dehydrogenase C-Reactive Protein Total Protein Albumin Triglycerides Lipase Arterial Blood Glucose 292 H Arterial Blood Ionized Calcium Urine WBC (Auto) Coronavirus (PCR) SARS-CoV-2 IgG Ab Crossmatch 06/18/20 06/18/20 06/18/20 03:14 05:34 11:47 WBC RBC Hgb Hct MCV MCH MCHC RDW Lymph % (Auto) [place] % (Auto) Lymph # (Auto) [place] # (Auto) Baso # (Auto) Seg Neutrophils % Seg Neuts % (Manual) Lymphocytes % (Manual) Nucleated RBC % Seg Neutrophils # Seg Neutrophils # Man Lymphocytes # (Manual) Monocytes # (Manual) Eosinophils # (Manual) PT INR APTT D-Dimer Heparin Anti-Xa Level ABG pH POC ABG pCO2 65.4 H POC ABG pO2 160.7 H ABG pO2 ABG HCO3 ABG O2 Saturation ABG Base Excess ABG Hemoglobin 7.8 L ABG Oxyhemoglobin ABG Sodium ABG Potassium ABG Chloride 95.0 L ABG Glucose 251 H Oxyhemoglobin Carboxyhemoglobin Sodium Potassium Chloride Carbon Dioxide BUN Creatinine Glucose POC Glucose 243 H 263 H Lactic Acid Calcium Magnesium Ferritin Total Bilirubin Direct Bilirubin AST ALT Alkaline Phosphatase Lactate Dehydrogenase C-Reactive Protein Total Protein Albumin Triglycerides Lipase Arterial Blood Glucose 251 H Arterial Blood Ionized Calcium Urine WBC (Auto) Coronavirus (PCR) SARS-CoV-2 IgG Ab Crossmatch 06/18/20 06/18/20 06/19/20 17:31 23:33 04:32 WBC RBC Hgb Hct MCV MCH MCHC RDW Lymph % (Auto) [place] % (Auto) Lymph # (Auto) [place] # (Auto) Baso # (Auto) Seg Neutrophils % Seg Neuts % (Manual) Lymphocytes % (Manual) Nucleated RBC % Seg Neutrophils # Seg Neutrophils # Man Lymphocytes # (Manual) Monocytes # (Manual) Eosinophils # (Manual) PT INR APTT D-Dimer Heparin Anti-Xa Level ABG pH POC ABG pCO2 83.1 H POC ABG pO2 65.8 L ABG pO2 ABG HCO3 ABG O2 Saturation ABG Base Excess ABG Hemoglobin 8.9 L ABG Oxyhemoglobin ABG Sodium ABG Potassium ABG Chloride 96.0 L ABG Glucose 297 H Oxyhemoglobin Carboxyhemoglobin Sodium Potassium Chloride Carbon Dioxide BUN Creatinine Glucose POC Glucose 286 H 238 H Lactic Acid Calcium Magnesium Ferritin Total Bilirubin Direct Bilirubin AST ALT Alkaline Phosphatase Lactate Dehydrogenase C-Reactive Protein Total Protein Albumin Triglycerides Lipase Arterial Blood Glucose 297 H Arterial Blood Ionized Calcium Urine WBC (Auto) Coronavirus (PCR) SARS-CoV-2 IgG Ab Crossmatch 06/19/20 06/19/20 06/19/20 05:55 11:20 17:12 WBC RBC Hgb Hct MCV MCH MCHC RDW Lymph % (Auto) [place] % (Auto) Lymph # (Auto) [place] # (Auto) Baso # (Auto) Seg Neutrophils % Seg Neuts % (Manual) Lymphocytes % (Manual) Nucleated RBC % Seg Neutrophils # Seg Neutrophils # Man Lymphocytes # (Manual) Monocytes # (Manual) Eosinophils # (Manual) PT INR APTT D-Dimer Heparin Anti-Xa Level ABG pH POC ABG pCO2 POC ABG pO2 ABG pO2 ABG HCO3 ABG O2 Saturation ABG Base Excess ABG Hemoglobin ABG Oxyhemoglobin ABG Sodium ABG Potassium ABG Chloride ABG Glucose Oxyhemoglobin Carboxyhemoglobin Sodium Potassium Chloride Carbon Dioxide BUN Creatinine Glucose POC Glucose 274 H 282 H 298 H Lactic Acid Calcium Magnesium Ferritin Total Bilirubin Direct Bilirubin AST ALT Alkaline Phosphatase Lactate Dehydrogenase C-Reactive Protein Total Protein Albumin Triglycerides Lipase Arterial Blood Glucose Arterial Blood Ionized Calcium Urine WBC (Auto) Coronavirus (PCR) SARS-CoV-2 IgG Ab Crossmatch 06/19/20 06/20/20 06/20/20 23:08 03:33 06:01 WBC RBC Hgb Hct MCV MCH MCHC RDW Lymph % (Auto) [place] % (Auto) Lymph # (Auto) [place] # (Auto) Baso # (Auto) Seg Neutrophils % Seg Neuts % (Manual) Lymphocytes % (Manual) Nucleated RBC % Seg Neutrophils # Seg Neutrophils # Man Lymphocytes # (Manual) Monocytes # (Manual) Eosinophils # (Manual) PT INR APTT D-Dimer Heparin Anti-Xa Level ABG pH POC ABG pCO2 POC ABG pO2 ABG pO2 69.9 L ABG HCO3 50.8 H ABG O2 Saturation ABG Base Excess 24.2 H ABG Hemoglobin 5.8 L ABG Oxyhemoglobin ABG Sodium ABG Potassium ABG Chloride ABG Glucose Oxyhemoglobin Carboxyhemoglobin Sodium Potassium Chloride Carbon Dioxide BUN Creatinine Glucose POC Glucose 293 H 182 H Lactic Acid Calcium Magnesium Ferritin Total Bilirubin Direct Bilirubin AST ALT Alkaline Phosphatase Lactate Dehydrogenase C-Reactive Protein Total Protein Albumin Triglycerides Lipase Arterial Blood Glucose Arterial Blood Ionized Calcium Urine WBC (Auto) Coronavirus (PCR) SARS-CoV-2 IgG Ab Crossmatch 06/20/20 06/20/20 06/20/20 11:47 17:46 23:37 WBC RBC Hgb Hct MCV MCH MCHC RDW Lymph % (Auto) [place] % (Auto) Lymph # (Auto) [place] # (Auto) Baso # (Auto) Seg Neutrophils % Seg Neuts % (Manual) Lymphocytes % (Manual) Nucleated RBC % Seg Neutrophils # Seg Neutrophils # Man Lymphocytes # (Manual) Monocytes # (Manual) Eosinophils # (Manual) PT INR APTT D-Dimer Heparin Anti-Xa Level ABG pH POC ABG pCO2 POC ABG pO2 ABG pO2 ABG HCO3 ABG O2 Saturation ABG Base Excess ABG Hemoglobin ABG Oxyhemoglobin ABG Sodium ABG Potassium ABG Chloride ABG Glucose Oxyhemoglobin Carboxyhemoglobin Sodium Potassium Chloride Carbon Dioxide BUN Creatinine Glucose POC Glucose 170 H 215 H 256 H Lactic Acid Calcium Magnesium Ferritin Total Bilirubin Direct Bilirubin AST ALT Alkaline Phosphatase Lactate Dehydrogenase C-Reactive Protein Total Protein Albumin Triglycerides Lipase Arterial Blood Glucose Arterial Blood Ionized Calcium Urine WBC (Auto) Coronavirus (PCR) SARS-CoV-2 IgG Ab Crossmatch 06/21/20 06/21/20 06/21/20 04:00 05:14 05:51 WBC RBC Hgb Hct MCV MCH MCHC RDW Lymph % (Auto) [place] % (Auto) Lymph # (Auto) [place] # (Auto) Baso # (Auto) Seg Neutrophils % Seg Neuts % (Manual) Lymphocytes % (Manual) Nucleated RBC % Seg Neutrophils # Seg Neutrophils # Man Lymphocytes # (Manual) Monocytes # (Manual) Eosinophils # (Manual) PT INR APTT D-Dimer Heparin Anti-Xa Level ABG pH 7.474 H POC ABG pCO2 POC ABG pO2 ABG pO2 ABG HCO3 52.1 H ABG O2 Saturation ABG Base Excess 23.3 H ABG Hemoglobin 5.3 L ABG Oxyhemoglobin ABG Sodium ABG Potassium ABG Chloride ABG Glucose Oxyhemoglobin 93.8 L Carboxyhemoglobin Sodium Potassium Chloride Carbon Dioxide BUN Creatinine Glucose POC Glucose 122 H 129 H Lactic Acid Calcium Magnesium Ferritin Total Bilirubin Direct Bilirubin AST ALT Alkaline Phosphatase Lactate Dehydrogenase C-Reactive Protein Total Protein Albumin Triglycerides Lipase Arterial Blood Glucose Arterial Blood Ionized Calcium Urine WBC (Auto) Coronavirus (PCR) SARS-CoV-2 IgG Ab Crossmatch 06/21/20 06/21/20 06/21/20 11:00 11:00 11:42 WBC 14.2 H RBC 1.85 L Hgb 6.2 L Hct 19.5 L* MCV 105 H MCH 34 H MCHC RDW 18.0 H Lymph % (Auto) [place] % (Auto) Lymph # (Auto) [place] # (Auto) Baso # (Auto) Seg Neutrophils % Seg Neuts % (Manual) Lymphocytes % (Manual) Nucleated RBC % Seg Neutrophils # Seg Neutrophils # Man Lymphocytes # (Manual) Monocytes # (Manual) Eosinophils # (Manual) PT INR APTT D-Dimer Heparin Anti-Xa Level ABG pH POC ABG pCO2 POC ABG pO2 ABG pO2 ABG HCO3 ABG O2 Saturation ABG Base Excess ABG Hemoglobin ABG Oxyhemoglobin ABG Sodium ABG Potassium ABG Chloride ABG Glucose Oxyhemoglobin Carboxyhemoglobin Sodium 147 H Potassium Chloride Carbon Dioxide 51 H* BUN 31 H Creatinine 0.5 L Glucose 224 H POC Glucose 217 H Lactic Acid Calcium Magnesium Ferritin Total Bilirubin Direct Bilirubin AST ALT Alkaline Phosphatase Lactate Dehydrogenase C-Reactive Protein Total Protein Albumin Triglycerides Lipase Arterial Blood Glucose Arterial Blood Ionized Calcium Urine WBC (Auto) Coronavirus (PCR) SARS-CoV-2 IgG Ab Crossmatch 06/21/20 06/21/20 06/21/20 14:18 14:30 18:36 WBC RBC Hgb Hct MCV MCH MCHC RDW Lymph % (Auto) [place] % (Auto) Lymph # (Auto) [place] # (Auto) Baso # (Auto) Seg Neutrophils % Seg Neuts % (Manual) Lymphocytes % (Manual) Nucleated RBC % Seg Neutrophils # Seg Neutrophils # Man Lymphocytes # (Manual) Monocytes # (Manual) Eosinophils # (Manual) PT 15.1 H INR 1.19 H APTT D-Dimer Heparin Anti-Xa Level ABG pH POC ABG pCO2 POC ABG pO2 ABG pO2 ABG HCO3 ABG O2 Saturation ABG Base Excess ABG Hemoglobin ABG Oxyhemoglobin ABG Sodium ABG Potassium ABG Chloride ABG Glucose Oxyhemoglobin Carboxyhemoglobin Sodium Potassium Chloride Carbon Dioxide BUN Creatinine Glucose POC Glucose 185 H Lactic Acid Calcium Magnesium Ferritin Total Bilirubin Direct Bilirubin AST ALT Alkaline Phosphatase Lactate Dehydrogenase C-Reactive Protein Total Protein Albumin Triglycerides Lipase Arterial Blood Glucose Arterial Blood Ionized Calcium Urine WBC (Auto) Coronavirus (PCR) SARS-CoV-2 IgG Ab Crossmatch See Detail 06/21/20 06/22/20 06/22/20 21:14 03:50 04:00 WBC RBC Hgb Hct MCV MCH MCHC RDW Lymph % (Auto) [place] % (Auto) Lymph # (Auto) [place] # (Auto) Baso # (Auto) Seg Neutrophils % Seg Neuts % (Manual) Lymphocytes % (Manual) Nucleated RBC % Seg Neutrophils # Seg Neutrophils # Man Lymphocytes # (Manual) Monocytes # (Manual) Eosinophils # (Manual) PT INR APTT D-Dimer Heparin Anti-Xa Level ABG pH 7.451 H POC ABG pCO2 POC ABG pO2 ABG pO2 ABG HCO3 47.5 H ABG O2 Saturation ABG Base Excess 22.0 H ABG Hemoglobin < 5.1 L ABG Oxyhemoglobin ABG Sodium ABG Potassium ABG Chloride ABG Glucose Oxyhemoglobin 94.1 L Carboxyhemoglobin Sodium 149 H Potassium 3.5 L Chloride Carbon Dioxide 42 H* D BUN 34 H Creatinine 0.4 L Glucose 219 H POC Glucose 250 H Lactic Acid Calcium Magnesium Ferritin Total Bilirubin Direct Bilirubin AST ALT Alkaline Phosphatase Lactate Dehydrogenase C-Reactive Protein Total Protein Albumin Triglycerides Lipase Arterial Blood Glucose Arterial Blood Ionized Calcium Urine WBC (Auto) Coronavirus (PCR) SARS-CoV-2 IgG Ab Crossmatch 06/22/20 06/22/20 06/22/20 12:16 14:29 17:56 WBC RBC Hgb Hct MCV MCH MCHC RDW Lymph % (Auto) [place] % (Auto) Lymph # (Auto) [place] # (Auto) Baso # (Auto) Seg Neutrophils % Seg Neuts % (Manual) Lymphocytes % (Manual) Nucleated RBC % Seg Neutrophils # Seg Neutrophils # Man Lymphocytes # (Manual) Monocytes # (Manual) Eosinophils # (Manual) PT 11.8 L INR APTT 23.5 L D-Dimer Heparin Anti-Xa Level ABG pH POC ABG pCO2 POC ABG pO2 ABG pO2 ABG HCO3 ABG O2 Saturation ABG Base Excess ABG Hemoglobin ABG Oxyhemoglobin ABG Sodium ABG Potassium ABG Chloride ABG Glucose Oxyhemoglobin Carboxyhemoglobin Sodium Potassium Chloride Carbon Dioxide BUN Creatinine Glucose POC Glucose 215 H 215 H Lactic Acid Calcium Magnesium Ferritin Total Bilirubin Direct Bilirubin AST ALT Alkaline Phosphatase Lactate Dehydrogenase C-Reactive Protein Total Protein Albumin Triglycerides Lipase Arterial Blood Glucose Arterial Blood Ionized Calcium Urine WBC (Auto) Coronavirus (PCR) SARS-CoV-2 IgG Ab Crossmatch 06/22/20 06/22/20 06/22/20 23:36 23:45 Unknown WBC 14.1 H RBC 2.70 L Hgb 8.9 L 8.9 L Hct 26.9 L 27.2 L D MCV 101 H MCH 33 H MCHC RDW 17.7 H Lymph % (Auto) [place] % (Auto) Lymph # (Auto) [place] # (Auto) Baso # (Auto) Seg Neutrophils % Seg Neuts % (Manual) 92.0 H Lymphocytes % (Manual) 5.0 L Nucleated RBC % Seg Neutrophils # Seg Neutrophils # Man 13.0 H Lymphocytes # (Manual) 0.7 L Monocytes # (Manual) Eosinophils # (Manual) PT INR APTT D-Dimer Heparin Anti-Xa Level ABG pH POC ABG pCO2 POC ABG pO2 ABG pO2 ABG HCO3 ABG O2 Saturation ABG Base Excess ABG Hemoglobin ABG Oxyhemoglobin ABG Sodium ABG Potassium ABG Chloride ABG Glucose Oxyhemoglobin Carboxyhemoglobin Sodium Potassium Chloride Carbon Dioxide BUN Creatinine Glucose POC Glucose 208 H Lactic Acid Calcium Magnesium Ferritin Total Bilirubin Direct Bilirubin AST ALT Alkaline Phosphatase Lactate Dehydrogenase C-Reactive Protein Total Protein Albumin Triglycerides Lipase Arterial Blood Glucose Arterial Blood Ionized Calcium Urine WBC (Auto) Coronavirus (PCR) SARS-CoV-2 IgG Ab Crossmatch 06/23/20 06/23/20 06/23/20 05:17 05:19 06:50 WBC RBC Hgb Hct MCV MCH MCHC RDW Lymph % (Auto) [place] % (Auto) Lymph # (Auto) [place] # (Auto) Baso # (Auto) Seg Neutrophils % Seg Neuts % (Manual) Lymphocytes % (Manual) Nucleated RBC % Seg Neutrophils # Seg Neutrophils # Man Lymphocytes # (Manual) Monocytes # (Manual) Eosinophils # (Manual) PT INR APTT D-Dimer Heparin Anti-Xa Level ABG pH POC ABG pCO2 69.7 H POC ABG pO2 63.3 L ABG pO2 ABG HCO3 ABG O2 Saturation ABG Base Excess ABG Hemoglobin 10.1 L ABG Oxyhemoglobin ABG Sodium ABG Potassium 3.3 L ABG Chloride ABG Glucose 226 H Oxyhemoglobin Carboxyhemoglobin Sodium Potassium 3.0 L Chloride Carbon Dioxide 41 H* BUN 26 H Creatinine 0.4 L Glucose 209 H POC Glucose 200 H Lactic Acid Calcium Magnesium Ferritin Total Bilirubin Direct Bilirubin AST ALT Alkaline Phosphatase Lactate Dehydrogenase C-Reactive Protein Total Protein Albumin 2.9 L Triglycerides Lipase Arterial Blood Glucose 226 H Arterial Blood Ionized Calcium Urine WBC (Auto) Coronavirus (PCR) SARS-CoV-2 IgG Ab Crossmatch 06/23/20 06/23/20 06/23/20 09:41 12:04 18:16 WBC RBC Hgb 9.1 L Hct 28.0 L MCV MCH MCHC RDW Lymph % (Auto) [place] % (Auto) Lymph # (Auto) [place] # (Auto) Baso # (Auto) Seg Neutrophils % Seg Neuts % (Manual) Lymphocytes % (Manual) Nucleated RBC % Seg Neutrophils # Seg Neutrophils # Man Lymphocytes # (Manual) Monocytes # (Manual) Eosinophils # (Manual) PT INR APTT D-Dimer Heparin Anti-Xa Level ABG pH POC ABG pCO2 POC ABG pO2 ABG pO2 ABG HCO3 ABG O2 Saturation ABG Base Excess ABG Hemoglobin ABG Oxyhemoglobin ABG Sodium ABG Potassium ABG Chloride ABG Glucose Oxyhemoglobin Carboxyhemoglobin Sodium Potassium Chloride Carbon Dioxide BUN Creatinine Glucose POC Glucose 146 H 162 H Lactic Acid Calcium Magnesium Ferritin Total Bilirubin Direct Bilirubin AST ALT Alkaline Phosphatase Lactate Dehydrogenase C-Reactive Protein Total Protein Albumin Triglycerides Lipase Arterial Blood Glucose Arterial Blood Ionized Calcium Urine WBC (Auto) Coronavirus (PCR) SARS-CoV-2 IgG Ab Crossmatch 06/23/20 06/23/20 06/24/20 23:24 23:41 02:39 WBC RBC Hgb 8.2 L 8.8 L Hct 24.9 L 26.8 L MCV MCH MCHC RDW Lymph % (Auto) [place] % (Auto) Lymph # (Auto) [place] # (Auto) Baso # (Auto) Seg Neutrophils % Seg Neuts % (Manual) Lymphocytes % (Manual) Nucleated RBC % Seg Neutrophils # Seg Neutrophils # Man Lymphocytes # (Manual) Monocytes # (Manual) Eosinophils # (Manual) PT INR APTT D-Dimer Heparin Anti-Xa Level ABG pH POC ABG pCO2 POC ABG pO2 ABG pO2 ABG HCO3 ABG O2 Saturation ABG Base Excess ABG Hemoglobin ABG Oxyhemoglobin ABG Sodium ABG Potassium ABG Chloride ABG Glucose Oxyhemoglobin Carboxyhemoglobin Sodium Potassium Chloride Carbon Dioxide BUN Creatinine Glucose POC Glucose 248 H Lactic Acid Calcium Magnesium Ferritin Total Bilirubin Direct Bilirubin AST ALT Alkaline Phosphatase Lactate Dehydrogenase C-Reactive Protein Total Protein Albumin Triglycerides Lipase Arterial Blood Glucose Arterial Blood Ionized Calcium Urine WBC (Auto) Coronavirus (PCR) SARS-CoV-2 IgG Ab Crossmatch 06/24/20 06/24/20 06/24/20 02:39 02:45 05:31 WBC RBC Hgb Hct MCV MCH MCHC RDW Lymph % (Auto) [place] % (Auto) Lymph # (Auto) [place] # (Auto) Baso # (Auto) Seg Neutrophils % Seg Neuts % (Manual) Lymphocytes % (Manual) Nucleated RBC % Seg Neutrophils # Seg Neutrophils # Man Lymphocytes # (Manual) Monocytes # (Manual) Eosinophils # (Manual) PT INR APTT D-Dimer Heparin Anti-Xa Level ABG pH POC ABG pCO2 66.9 H POC ABG pO2 109.7 H ABG pO2 ABG HCO3 ABG O2 Saturation ABG Base Excess ABG Hemoglobin 9.7 L ABG Oxyhemoglobin ABG Sodium 135.0 L ABG Potassium ABG Chloride 97.0 L ABG Glucose 277 H Oxyhemoglobin Carboxyhemoglobin Sodium 136 L Potassium Chloride 95.0 L Carbon Dioxide 34 H D BUN 24 H Creatinine 0.3 L Glucose 260 H POC Glucose 164 H Lactic Acid Calcium Magnesium Ferritin Total Bilirubin Direct Bilirubin AST ALT Alkaline Phosphatase Lactate Dehydrogenase C-Reactive Protein Total Protein 5.2 L Albumin 2.6 L Triglycerides Lipase Arterial Blood Glucose 277 H Arterial Blood Ionized Calcium Urine WBC (Auto) Coronavirus (PCR) SARS-CoV-2 IgG Ab Crossmatch 06/24/20 06/24/20 06/24/20 10:00 11:49 17:39 WBC RBC Hgb 8.9 L Hct 26.5 L MCV MCH MCHC RDW Lymph % (Auto) [place] % (Auto) Lymph # (Auto) [place] # (Auto) Baso # (Auto) Seg Neutrophils % Seg Neuts % (Manual) Lymphocytes % (Manual) Nucleated RBC % Seg Neutrophils # Seg Neutrophils # Man Lymphocytes # (Manual) Monocytes # (Manual) Eosinophils # (Manual) PT INR APTT D-Dimer Heparin Anti-Xa Level ABG pH POC ABG pCO2 POC ABG pO2 ABG pO2 ABG HCO3 ABG O2 Saturation ABG Base Excess ABG Hemoglobin ABG Oxyhemoglobin ABG Sodium ABG Potassium ABG Chloride ABG Glucose Oxyhemoglobin Carboxyhemoglobin Sodium Potassium Chloride Carbon Dioxide BUN Creatinine Glucose POC Glucose 198 H 223 H Lactic Acid Calcium Magnesium Ferritin Total Bilirubin Direct Bilirubin AST ALT Alkaline Phosphatase Lactate Dehydrogenase C-Reactive Protein Total Protein Albumin Triglycerides Lipase Arterial Blood Glucose Arterial Blood Ionized Calcium Urine WBC (Auto) Coronavirus (PCR) SARS-CoV-2 IgG Ab Crossmatch 06/24/20 06/25/20 06/25/20 23:56 02:16 04:08 WBC RBC Hgb Hct MCV MCH MCHC RDW Lymph % (Auto) [place] % (Auto) Lymph # (Auto) [place] # (Auto) Baso # (Auto) Seg Neutrophils % Seg Neuts % (Manual) Lymphocytes % (Manual) Nucleated RBC % Seg Neutrophils # Seg Neutrophils # Man Lymphocytes # (Manual) Monocytes # (Manual) Eosinophils # (Manual) PT INR APTT D-Dimer Heparin Anti-Xa Level ABG pH 7.454 H POC ABG pCO2 56.9 H POC ABG pO2 61.0 L ABG pO2 ABG HCO3 ABG O2 Saturation ABG Base Excess ABG Hemoglobin ABG Oxyhemoglobin ABG Sodium 134.3 L ABG Potassium ABG Chloride 92.0 L ABG Glucose 246 H Oxyhemoglobin Carboxyhemoglobin Sodium 134 L Potassium Chloride 89.7 L Carbon Dioxide 36 H BUN Creatinine 0.3 L Glucose 254 H POC Glucose 225 H Lactic Acid Calcium Magnesium Ferritin Total Bilirubin Direct Bilirubin AST ALT Alkaline Phosphatase Lactate Dehydrogenase C-Reactive Protein Total Protein Albumin 2.9 L Triglycerides Lipase Arterial Blood Glucose 246 H Arterial Blood Ionized Calcium Urine WBC (Auto) Coronavirus (PCR) SARS-CoV-2 IgG Ab Crossmatch 06/25/20 06/25/20 06/25/20 05:44 11:35 17:33 WBC RBC Hgb Hct MCV MCH MCHC RDW Lymph % (Auto) [place] % (Auto) Lymph # (Auto) [place] # (Auto) Baso # (Auto) Seg Neutrophils % Seg Neuts % (Manual) Lymphocytes % (Manual) Nucleated RBC % Seg Neutrophils # Seg Neutrophils # Man Lymphocytes # (Manual) Monocytes # (Manual) Eosinophils # (Manual) PT INR APTT D-Dimer Heparin Anti-Xa Level ABG pH POC ABG pCO2 POC ABG pO2 ABG pO2 ABG HCO3 ABG O2 Saturation ABG Base Excess ABG Hemoglobin ABG Oxyhemoglobin ABG Sodium ABG Potassium ABG Chloride ABG Glucose Oxyhemoglobin Carboxyhemoglobin Sodium Potassium Chloride Carbon Dioxide BUN Creatinine Glucose POC Glucose 170 H 175 H 229 H Lactic Acid Calcium Magnesium Ferritin Total Bilirubin Direct Bilirubin AST ALT Alkaline Phosphatase Lactate Dehydrogenase C-Reactive Protein Total Protein Albumin Triglycerides Lipase Arterial Blood Glucose Arterial Blood Ionized Calcium Urine WBC (Auto) Coronavirus (PCR) SARS-CoV-2 IgG Ab Crossmatch 06/25/20 06/26/20 06/26/20 23:55 02:17 02:17 WBC RBC Hgb 10.0 L Hct 30.4 L MCV MCH MCHC RDW Lymph % (Auto) [place] % (Auto) Lymph # (Auto) [place] # (Auto) Baso # (Auto) Seg Neutrophils % Seg Neuts % (Manual) Lymphocytes % (Manual) Nucleated RBC % Seg Neutrophils # Seg Neutrophils # Man Lymphocytes # (Manual) Monocytes # (Manual) Eosinophils # (Manual) PT INR APTT D-Dimer Heparin Anti-Xa Level ABG pH POC ABG pCO2 POC ABG pO2 ABG pO2 ABG HCO3 ABG O2 Saturation ABG Base Excess ABG Hemoglobin ABG Oxyhemoglobin ABG Sodium ABG Potassium ABG Chloride ABG Glucose Oxyhemoglobin Carboxyhemoglobin Sodium 136 L Potassium Chloride 90.1 L Carbon Dioxide 39 H BUN Creatinine 0.2 L Glucose 232 H POC Glucose 192 H Lactic Acid Calcium Magnesium Ferritin Total Bilirubin Direct Bilirubin AST ALT Alkaline Phosphatase Lactate Dehydrogenase C-Reactive Protein Total Protein 6.1 L Albumin 2.9 L Triglycerides Lipase Arterial Blood Glucose Arterial Blood Ionized Calcium Urine WBC (Auto) Coronavirus (PCR) SARS-CoV-2 IgG Ab Crossmatch 06/26/20 06/26/20 06/26/20 04:15 04:49 05:28 WBC RBC Hgb Hct MCV MCH MCHC RDW Lymph % (Auto) [place] % (Auto) Lymph # (Auto) [place] # (Auto) Baso # (Auto) Seg Neutrophils % Seg Neuts % (Manual) Lymphocytes % (Manual) Nucleated RBC % Seg Neutrophils # Seg Neutrophils # Man Lymphocytes # (Manual) Monocytes # (Manual) Eosinophils # (Manual) PT INR APTT D-Dimer Heparin Anti-Xa Level ABG pH 7.453 H POC ABG pCO2 59.6 H POC ABG pO2 ABG pO2 ABG HCO3 ABG O2 Saturation ABG Base Excess ABG Hemoglobin 10.0 L ABG Oxyhemoglobin ABG Sodium 134.2 L ABG Potassium 3.3 L ABG Chloride 92.0 L ABG Glucose 305 H Oxyhemoglobin Carboxyhemoglobin Sodium Potassium Chloride Carbon Dioxide BUN Creatinine Glucose POC Glucose 234 H Lactic Acid Calcium Magnesium Ferritin Total Bilirubin Direct Bilirubin AST ALT Alkaline Phosphatase Lactate Dehydrogenase C-Reactive Protein Total Protein Albumin Triglycerides 203 H Lipase Arterial Blood Glucose 305 H Arterial Blood Ionized Calcium Urine WBC (Auto) Coronavirus (PCR) SARS-CoV-2 IgG Ab Crossmatch 06/26/20 06/26/20 06/26/20 11:58 17:58 21:32 WBC RBC Hgb Hct MCV MCH MCHC RDW Lymph % (Auto) [place] % (Auto) Lymph # (Auto) [place] # (Auto) Baso # (Auto) Seg Neutrophils % Seg Neuts % (Manual) Lymphocytes % (Manual) Nucleated RBC % Seg Neutrophils # Seg Neutrophils # Man Lymphocytes # (Manual) Monocytes # (Manual) Eosinophils # (Manual) PT INR APTT D-Dimer Heparin Anti-Xa Level ABG pH POC ABG pCO2 POC ABG pO2 ABG pO2 ABG HCO3 ABG O2 Saturation ABG Base Excess ABG Hemoglobin ABG Oxyhemoglobin ABG Sodium ABG Potassium ABG Chloride ABG Glucose Oxyhemoglobin Carboxyhemoglobin Sodium Potassium Chloride Carbon Dioxide BUN Creatinine Glucose POC Glucose 198 H 193 H 191 H Lactic Acid Calcium Magnesium Ferritin Total Bilirubin Direct Bilirubin AST ALT Alkaline Phosphatase Lactate Dehydrogenase C-Reactive Protein Total Protein Albumin Triglycerides Lipase Arterial Blood Glucose Arterial Blood Ionized Calcium Urine WBC (Auto) Coronavirus (PCR) SARS-CoV-2 IgG Ab Crossmatch 06/26/20 06/27/20 06/27/20 23:40 04:35 05:32 WBC RBC Hgb Hct MCV MCH MCHC RDW Lymph % (Auto) [place] % (Auto) Lymph # (Auto) [place] # (Auto) Baso # (Auto) Seg Neutrophils % Seg Neuts % (Manual) Lymphocytes % (Manual) Nucleated RBC % Seg Neutrophils # Seg Neutrophils # Man Lymphocytes # (Manual) Monocytes # (Manual) Eosinophils # (Manual) PT INR APTT D-Dimer Heparin Anti-Xa Level ABG pH 7.464 H POC ABG pCO2 60.8 H POC ABG pO2 ABG pO2 ABG HCO3 ABG O2 Saturation ABG Base Excess ABG Hemoglobin 10.1 L ABG Oxyhemoglobin ABG Sodium ABG Potassium 2.9 L ABG Chloride 92.0 L ABG Glucose 298 H Oxyhemoglobin Carboxyhemoglobin Sodium Potassium Chloride Carbon Dioxide BUN Creatinine Glucose POC Glucose 241 H 211 H Lactic Acid Calcium Magnesium Ferritin Total Bilirubin Direct Bilirubin AST ALT Alkaline Phosphatase Lactate Dehydrogenase C-Reactive Protein Total Protein Albumin Triglycerides Lipase Arterial Blood Glucose 298 H Arterial Blood Ionized Calcium Urine WBC (Auto) Coronavirus (PCR) SARS-CoV-2 IgG Ab Crossmatch 06/27/20 06/27/20 06/27/20 12:37 18:08 20:52 WBC RBC Hgb Hct MCV MCH MCHC RDW Lymph % (Auto) [place] % (Auto) Lymph # (Auto) [place] # (Auto) Baso # (Auto) Seg Neutrophils % Seg Neuts % (Manual) Lymphocytes % (Manual) Nucleated RBC % Seg Neutrophils # Seg Neutrophils # Man Lymphocytes # (Manual) Monocytes # (Manual) Eosinophils # (Manual) PT INR APTT D-Dimer Heparin Anti-Xa Level ABG pH POC ABG pCO2 POC ABG pO2 ABG pO2 ABG HCO3 ABG O2 Saturation ABG Base Excess ABG Hemoglobin ABG Oxyhemoglobin ABG Sodium ABG Potassium ABG Chloride ABG Glucose Oxyhemoglobin Carboxyhemoglobin Sodium Potassium Chloride Carbon Dioxide BUN Creatinine Glucose POC Glucose 182 H 197 H 195 H Lactic Acid Calcium Magnesium Ferritin Total Bilirubin Direct Bilirubin AST ALT Alkaline Phosphatase Lactate Dehydrogenase C-Reactive Protein Total Protein Albumin Triglycerides Lipase Arterial Blood Glucose Arterial Blood Ionized Calcium Urine WBC (Auto) Coronavirus (PCR) SARS-CoV-2 IgG Ab Crossmatch 06/27/20 06/28/20 06/28/20 Unknown 04:17 04:50 WBC RBC Hgb Hct MCV MCH MCHC RDW Lymph % (Auto) [place] % (Auto) Lymph # (Auto) [place] # (Auto) Baso # (Auto) Seg Neutrophils % Seg Neuts % (Manual) Lymphocytes % (Manual) Nucleated RBC % Seg Neutrophils # Seg Neutrophils # Man Lymphocytes # (Manual) Monocytes # (Manual) Eosinophils # (Manual) PT INR APTT D-Dimer Heparin Anti-Xa Level ABG pH POC ABG pCO2 58.6 H POC ABG pO2 60.1 L ABG pO2 ABG HCO3 ABG O2 Saturation ABG Base Excess ABG Hemoglobin 10.0 L ABG Oxyhemoglobin ABG Sodium 125.3 L ABG Potassium ABG Chloride 93.0 L ABG Glucose 308 H Oxyhemoglobin Carboxyhemoglobin Sodium Potassium 2.9 L* Chloride 93.4 L Carbon Dioxide 42 H* BUN Creatinine 0.3 L Glucose 211 H POC Glucose 252 H Lactic Acid Calcium 8.1 L Magnesium Ferritin Total Bilirubin Direct Bilirubin AST ALT Alkaline Phosphatase Lactate Dehydrogenase C-Reactive Protein Total Protein 5.1 L Albumin 2.4 L Triglycerides Lipase Arterial Blood Glucose 308 H Arterial Blood Ionized Calcium Urine WBC (Auto) Coronavirus (PCR) SARS-CoV-2 IgG Ab Crossmatch 06/28/20 06/28/20 06/28/20 06:35 06:35 11:36 WBC 18.9 H RBC 2.85 L Hgb 9.5 L Hct 28.4 L MCV 100 H MCH 33 H MCHC RDW 17.3 H Lymph % (Auto) [place] % (Auto) Lymph # (Auto) [place] # (Auto) Baso # (Auto) Seg Neutrophils % 88.6 H Seg Neuts % (Manual) 95.0 H Lymphocytes % (Manual) 1.0 L Nucleated RBC % Seg Neutrophils # 15.9 H Seg Neutrophils # Man 18.0 H Lymphocytes # (Manual) 0.2 L Monocytes # (Manual) Eosinophils # (Manual) PT INR APTT D-Dimer Heparin Anti-Xa Level ABG pH POC ABG pCO2 POC ABG pO2 ABG pO2 ABG HCO3 ABG O2 Saturation ABG Base Excess ABG Hemoglobin ABG Oxyhemoglobin ABG Sodium ABG Potassium ABG Chloride ABG Glucose Oxyhemoglobin Carboxyhemoglobin Sodium Potassium Chloride 94.2 L Carbon Dioxide 38 H BUN Creatinine 0.3 L Glucose 228 H POC Glucose 243 H Lactic Acid Calcium Magnesium Ferritin Total Bilirubin Direct Bilirubin AST ALT Alkaline Phosphatase Lactate Dehydrogenase C-Reactive Protein Total Protein 6.1 L Albumin 2.7 L Triglycerides Lipase Arterial Blood Glucose Arterial Blood Ionized Calcium Urine WBC (Auto) Coronavirus (PCR) SARS-CoV-2 IgG Ab Crossmatch 06/28/20 06/28/20 06/29/20 16:53 21:10 00:06 WBC RBC Hgb Hct MCV MCH MCHC RDW Lymph % (Auto) [place] % (Auto) Lymph # (Auto) [place] # (Auto) Baso # (Auto) Seg Neutrophils % Seg Neuts % (Manual) Lymphocytes % (Manual) Nucleated RBC % Seg Neutrophils # Seg Neutrophils # Man Lymphocytes # (Manual) Monocytes # (Manual) Eosinophils # (Manual) PT INR APTT D-Dimer Heparin Anti-Xa Level ABG pH POC ABG pCO2 POC ABG pO2 ABG pO2 ABG HCO3 ABG O2 Saturation ABG Base Excess ABG Hemoglobin ABG Oxyhemoglobin ABG Sodium ABG Potassium ABG Chloride ABG Glucose Oxyhemoglobin Carboxyhemoglobin Sodium Potassium Chloride Carbon Dioxide BUN Creatinine Glucose POC Glucose 211 H 195 H 200 H Lactic Acid Calcium Magnesium Ferritin Total Bilirubin Direct Bilirubin AST ALT Alkaline Phosphatase Lactate Dehydrogenase C-Reactive Protein Total Protein Albumin Triglycerides Lipase Arterial Blood Glucose Arterial Blood Ionized Calcium Urine WBC (Auto) Coronavirus (PCR) SARS-CoV-2 IgG Ab Crossmatch 06/29/20 06/29/20 06/29/20 03:11 04:00 04:00 WBC 18.8 H RBC 2.82 L Hgb 10.1 L Hct 28.5 L MCV 101 H MCH 36 H MCHC 36 H RDW 17.5 H Lymph % (Auto) 10.7 L [place] % (Auto) Lymph # (Auto) [place] # (Auto) 1.0 H Baso # (Auto) 0.3 H Seg Neutrophils % 82.2 H Seg Neuts % (Manual) Lymphocytes % (Manual) Nucleated RBC % Seg Neutrophils # 15.5 H Seg Neutrophils # Man Lymphocytes # (Manual) Monocytes # (Manual) Eosinophils # (Manual) PT INR APTT D-Dimer Heparin Anti-Xa Level ABG pH POC ABG pCO2 57.5 H POC ABG pO2 69.1 L ABG pO2 ABG HCO3 ABG O2 Saturation ABG Base Excess ABG Hemoglobin 10.2 L ABG Oxyhemoglobin 92.3 L ABG Sodium 130.7 L ABG Potassium 3.2 L ABG Chloride 93.0 L ABG Glucose 228 H Oxyhemoglobin Carboxyhemoglobin Sodium 134 L Potassium 3.3 L Chloride 89.5 L Carbon Dioxide 40 H BUN Creatinine 0.2 L Glucose 190 H POC Glucose Lactic Acid Calcium Magnesium Ferritin Total Bilirubin Direct Bilirubin AST < 5 L ALT < 5 L Alkaline Phosphatase Lactate Dehydrogenase C-Reactive Protein Total Protein 5.9 L Albumin 2.2 L Triglycerides Lipase Arterial Blood Glucose 228 H Arterial Blood Ionized Calcium Urine WBC (Auto) Coronavirus (PCR) SARS-CoV-2 IgG Ab Crossmatch 06/29/20 06/29/20 06/29/20 05:00 05:23 09:36 WBC RBC Hgb Hct MCV MCH MCHC RDW Lymph % (Auto) [place] % (Auto) Lymph # (Auto) [place] # (Auto) Baso # (Auto) Seg Neutrophils % Seg Neuts % (Manual) Lymphocytes % (Manual) Nucleated RBC % Seg Neutrophils # Seg Neutrophils # Man Lymphocytes # (Manual) Monocytes # (Manual) Eosinophils # (Manual) PT INR APTT D-Dimer Heparin Anti-Xa Level ABG pH POC ABG pCO2 POC ABG pO2 ABG pO2 ABG HCO3 ABG O2 Saturation ABG Base Excess ABG Hemoglobin ABG Oxyhemoglobin ABG Sodium ABG Potassium ABG Chloride ABG Glucose Oxyhemoglobin Carboxyhemoglobin Sodium Potassium Chloride Carbon Dioxide BUN Creatinine Glucose POC Glucose 165 H Lactic Acid Calcium Magnesium Ferritin Total Bilirubin Direct Bilirubin AST ALT Alkaline Phosphatase Lactate Dehydrogenase C-Reactive Protein Total Protein Albumin Triglycerides 1544 H 1799 H Lipase Arterial Blood Glucose Arterial Blood Ionized Calcium Urine WBC (Auto) Coronavirus (PCR) SARS-CoV-2 IgG Ab Crossmatch 06/29/20 06/29/20 06/29/20 09:36 12:02 18:00 WBC RBC Hgb Hct MCV MCH MCHC RDW Lymph % (Auto) [place] % (Auto) Lymph # (Auto) [place] # (Auto) Baso # (Auto) Seg Neutrophils % Seg Neuts % (Manual) Lymphocytes % (Manual) Nucleated RBC % Seg Neutrophils # Seg Neutrophils # Man Lymphocytes # (Manual) Monocytes # (Manual) Eosinophils # (Manual) PT INR APTT D-Dimer Heparin Anti-Xa Level ABG pH POC ABG pCO2 POC ABG pO2 ABG pO2 ABG HCO3 ABG O2 Saturation ABG Base Excess ABG Hemoglobin ABG Oxyhemoglobin ABG Sodium ABG Potassium ABG Chloride ABG Glucose Oxyhemoglobin Carboxyhemoglobin Sodium Potassium Chloride Carbon Dioxide BUN Creatinine Glucose POC Glucose 197 H 187 H Lactic Acid Calcium Magnesium Ferritin Total Bilirubin Direct Bilirubin AST ALT Alkaline Phosphatase Lactate Dehydrogenase C-Reactive Protein Total Protein Albumin Triglycerides Lipase 86 H Arterial Blood Glucose Arterial Blood Ionized Calcium Urine WBC (Auto) Coronavirus (PCR) SARS-CoV-2 IgG Ab Crossmatch 06/29/20 06/30/20 06/30/20 23:33 03:46 05:50 WBC RBC Hgb Hct MCV MCH MCHC RDW Lymph % (Auto) [place] % (Auto) Lymph # (Auto) [place] # (Auto) Baso # (Auto) Seg Neutrophils % Seg Neuts % (Manual) Lymphocytes % (Manual) Nucleated RBC % Seg Neutrophils # Seg Neutrophils # Man Lymphocytes # (Manual) Monocytes # (Manual) Eosinophils # (Manual) PT INR APTT D-Dimer Heparin Anti-Xa Level ABG pH 7.466 H POC ABG pCO2 57.3 H POC ABG pO2 66.1 L ABG pO2 ABG HCO3 ABG O2 Saturation ABG Base Excess ABG Hemoglobin 10.2 L ABG Oxyhemoglobin 92.3 L ABG Sodium 134.4 L ABG Potassium 3.2 L ABG Chloride 94.0 L ABG Glucose 178 H Oxyhemoglobin Carboxyhemoglobin Sodium Potassium Chloride Carbon Dioxide BUN Creatinine Glucose POC Glucose 170 H 170 H Lactic Acid Calcium Magnesium Ferritin Total Bilirubin Direct Bilirubin AST ALT Alkaline Phosphatase Lactate Dehydrogenase C-Reactive Protein Total Protein Albumin Triglycerides Lipase Arterial Blood Glucose 178 H Arterial Blood Ionized Calcium Urine WBC (Auto) Coronavirus (PCR) SARS-CoV-2 IgG Ab Crossmatch 06/30/20 06/30/20 06/30/20 07:00 07:00 12:04 WBC 15.6 H RBC 2.91 L Hgb 9.8 L Hct 29.7 L MCV 102 H MCH 34 H MCHC RDW 17.8 H Lymph % (Auto) [place] % (Auto) Lymph # (Auto) [place] # (Auto) Baso # (Auto) Seg Neutrophils % Seg Neuts % (Manual) Lymphocytes % (Manual) 5.0 L Nucleated RBC % Seg Neutrophils # Seg Neutrophils # Man 14.8 H Lymphocytes # (Manual) 0.8 L Monocytes # (Manual) Eosinophils # (Manual) PT INR APTT D-Dimer Heparin Anti-Xa Level ABG pH POC ABG pCO2 POC ABG pO2 ABG pO2 ABG HCO3 ABG O2 Saturation ABG Base Excess ABG Hemoglobin ABG Oxyhemoglobin ABG Sodium ABG Potassium ABG Chloride ABG Glucose Oxyhemoglobin Carboxyhemoglobin Sodium Potassium Chloride 93.3 L Carbon Dioxide 43 H* BUN Creatinine 0.3 L Glucose 260 H POC Glucose 245 H Lactic Acid Calcium Magnesium Ferritin Total Bilirubin Direct Bilirubin AST ALT Alkaline Phosphatase Lactate Dehydrogenase C-Reactive Protein Total Protein Albumin 2.8 L Triglycerides 452 H Lipase Arterial Blood Glucose Arterial Blood Ionized Calcium Urine WBC (Auto) Coronavirus (PCR) SARS-CoV-2 IgG Ab Crossmatch 06/30/20 07/01/20 07/01/20 17:32 00:02 05:02 WBC RBC Hgb Hct MCV MCH MCHC RDW Lymph % (Auto) [place] % (Auto) Lymph # (Auto) [place] # (Auto) Baso # (Auto) Seg Neutrophils % Seg Neuts % (Manual) Lymphocytes % (Manual) Nucleated RBC % Seg Neutrophils # Seg Neutrophils # Man Lymphocytes # (Manual) Monocytes # (Manual) Eosinophils # (Manual) PT INR APTT D-Dimer Heparin Anti-Xa Level ABG pH POC ABG pCO2 58.1 H POC ABG pO2 ABG pO2 ABG HCO3 ABG O2 Saturation ABG Base Excess ABG Hemoglobin 11.2 L ABG Oxyhemoglobin ABG Sodium 132.7 L ABG Potassium ABG Chloride 92.0 L ABG Glucose 238 H Oxyhemoglobin Carboxyhemoglobin Sodium Potassium Chloride Carbon Dioxide BUN Creatinine Glucose POC Glucose 209 H 208 H Lactic Acid Calcium Magnesium Ferritin Total Bilirubin Direct Bilirubin AST ALT Alkaline Phosphatase Lactate Dehydrogenase C-Reactive Protein Total Protein Albumin Triglycerides Lipase Arterial Blood Glucose 238 H Arterial Blood Ionized Calcium Urine WBC (Auto) Coronavirus (PCR) SARS-CoV-2 IgG Ab Crossmatch 07/01/20 07/01/20 07/01/20 06:16 06:41 06:41 WBC 18.1 H RBC 2.33 L Hgb 7.1 L Hct 21.3 L D MCV MCH MCHC RDW Lymph % (Auto) [place] % (Auto) Lymph # (Auto) [place] # (Auto) Baso # (Auto) Seg Neutrophils % Seg Neuts % (Manual) 82.0 H Lymphocytes % (Manual) 7.0 L Nucleated RBC % 1.0 H Seg Neutrophils # Seg Neutrophils # Man 14.8 H Lymphocytes # (Manual) Monocytes # (Manual) 1.1 H Eosinophils # (Manual) 0.5 H PT INR APTT D-Dimer Heparin Anti-Xa Level < 0.10 L ABG pH POC ABG pCO2 POC ABG pO2 ABG pO2 ABG HCO3 ABG O2 Saturation ABG Base Excess ABG Hemoglobin ABG Oxyhemoglobin ABG Sodium ABG Potassium ABG Chloride ABG Glucose Oxyhemoglobin Carboxyhemoglobin Sodium Potassium Chloride Carbon Dioxide BUN Creatinine Glucose POC Glucose 180 H Lactic Acid Calcium Magnesium Ferritin Total Bilirubin Direct Bilirubin AST ALT Alkaline Phosphatase Lactate Dehydrogenase C-Reactive Protein Total Protein Albumin Triglycerides Lipase Arterial Blood Glucose Arterial Blood Ionized Calcium Urine WBC (Auto) Coronavirus (PCR) SARS-CoV-2 IgG Ab Crossmatch 07/01/20 07/01/20 07/01/20 08:11 12:04 16:16 WBC RBC Hgb Hct MCV MCH MCHC RDW Lymph % (Auto) [place] % (Auto) Lymph # (Auto) [place] # (Auto) Baso # (Auto) Seg Neutrophils % Seg Neuts % (Manual) Lymphocytes % (Manual) Nucleated RBC % Seg Neutrophils # Seg Neutrophils # Man Lymphocytes # (Manual) Monocytes # (Manual) Eosinophils # (Manual) PT INR APTT D-Dimer Heparin Anti-Xa Level 1.02 H ABG pH POC ABG pCO2 POC ABG pO2 ABG pO2 ABG HCO3 ABG O2 Saturation ABG Base Excess ABG Hemoglobin ABG Oxyhemoglobin ABG Sodium ABG Potassium ABG Chloride ABG Glucose Oxyhemoglobin Carboxyhemoglobin Sodium 135 L Potassium 3.0 L Chloride 93.1 L Carbon Dioxide 40 H BUN Creatinine 0.3 L Glucose 140 H POC Glucose 223 H Lactic Acid Calcium Magnesium Ferritin Total Bilirubin Direct Bilirubin AST ALT Alkaline Phosphatase Lactate Dehydrogenase C-Reactive Protein Total Protein Albumin Triglycerides Lipase Arterial Blood Glucose Arterial Blood Ionized Calcium Urine WBC (Auto) Coronavirus (PCR) SARS-CoV-2 IgG Ab Crossmatch 07/01/20 07/01/20 07/02/20 17:09 23:19 00:56 WBC RBC Hgb Hct MCV MCH MCHC RDW Lymph % (Auto) [place] % (Auto) Lymph # (Auto) [place] # (Auto) Baso # (Auto) Seg Neutrophils % Seg Neuts % (Manual) Lymphocytes % (Manual) Nucleated RBC % Seg Neutrophils # Seg Neutrophils # Man Lymphocytes # (Manual) Monocytes # (Manual) Eosinophils # (Manual) PT INR APTT D-Dimer Heparin Anti-Xa Level 0.22 L ABG pH POC ABG pCO2 POC ABG pO2 ABG pO2 ABG HCO3 ABG O2 Saturation ABG Base Excess ABG Hemoglobin ABG Oxyhemoglobin ABG Sodium ABG Potassium ABG Chloride ABG Glucose Oxyhemoglobin Carboxyhemoglobin Sodium Potassium Chloride Carbon Dioxide BUN Creatinine Glucose POC Glucose 233 H 255 H Lactic Acid Calcium Magnesium Ferritin Total Bilirubin Direct Bilirubin AST ALT Alkaline Phosphatase Lactate Dehydrogenase C-Reactive Protein Total Protein Albumin Triglycerides Lipase Arterial Blood Glucose Arterial Blood Ionized Calcium Urine WBC (Auto) Coronavirus (PCR) SARS-CoV-2 IgG Ab Crossmatch 07/02/20 07/02/20 07/02/20 03:51 05:35 11:39 WBC RBC Hgb Hct MCV MCH MCHC RDW Lymph % (Auto) [place] % (Auto) Lymph # (Auto) [place] # (Auto) Baso # (Auto) Seg Neutrophils % Seg Neuts % (Manual) Lymphocytes % (Manual) Nucleated RBC % Seg Neutrophils # Seg Neutrophils # Man Lymphocytes # (Manual) Monocytes # (Manual) Eosinophils # (Manual) PT INR APTT D-Dimer Heparin Anti-Xa Level ABG pH POC ABG pCO2 54.9 H POC ABG pO2 52.1 L ABG pO2 ABG HCO3 ABG O2 Saturation ABG Base Excess ABG Hemoglobin 11.9 L ABG Oxyhemoglobin 82.8 L ABG Sodium 130.2 L ABG Potassium ABG Chloride 92.0 L ABG Glucose 249 H Oxyhemoglobin Carboxyhemoglobin 1.9 H Sodium Potassium Chloride Carbon Dioxide BUN Creatinine Glucose POC Glucose 205 H 235 H Lactic Acid Calcium Magnesium Ferritin Total Bilirubin Direct Bilirubin AST ALT Alkaline Phosphatase Lactate Dehydrogenase C-Reactive Protein Total Protein Albumin Triglycerides Lipase Arterial Blood Glucose 249 H Arterial Blood Ionized Calcium Urine WBC (Auto) Coronavirus (PCR) SARS-CoV-2 IgG Ab Crossmatch 07/02/20 07/02/20 07/02/20 16:08 16:08 17:54 WBC 19.8 H RBC 3.28 L Hgb 10.7 L D Hct 32.7 L D MCV 100 H MCH 33 H MCHC RDW 17.2 H Lymph % (Auto) [place] % (Auto) Lymph # (Auto) [place] # (Auto) Baso # (Auto) Seg Neutrophils % Seg Neuts % (Manual) Lymphocytes % (Manual) Nucleated RBC % Seg Neutrophils # Seg Neutrophils # Man Lymphocytes # (Manual) Monocytes # (Manual) Eosinophils # (Manual) PT INR APTT D-Dimer Heparin Anti-Xa Level ABG pH POC ABG pCO2 POC ABG pO2 ABG pO2 ABG HCO3 ABG O2 Saturation ABG Base Excess ABG Hemoglobin ABG Oxyhemoglobin ABG Sodium ABG Potassium ABG Chloride ABG Glucose Oxyhemoglobin Carboxyhemoglobin Sodium 136 L Potassium Chloride 92.4 L Carbon Dioxide 35 H BUN Creatinine 0.3 L Glucose 203 H POC Glucose 175 H Lactic Acid Calcium Magnesium Ferritin Total Bilirubin Direct Bilirubin AST ALT Alkaline Phosphatase Lactate Dehydrogenase C-Reactive Protein Total Protein Albumin Triglycerides Lipase Arterial Blood Glucose Arterial Blood Ionized Calcium Urine WBC (Auto) Coronavirus (PCR) SARS-CoV-2 IgG Ab Crossmatch 07/02/20 07/03/20 07/03/20 23:46 03:25 05:54 WBC RBC Hgb Hct MCV MCH MCHC RDW Lymph % (Auto) [place] % (Auto) Lymph # (Auto) [place] # (Auto) Baso # (Auto) Seg Neutrophils % Seg Neuts % (Manual) Lymphocytes % (Manual) Nucleated RBC % Seg Neutrophils # Seg Neutrophils # Man Lymphocytes # (Manual) Monocytes # (Manual) Eosinophils # (Manual) PT INR APTT D-Dimer Heparin Anti-Xa Level ABG pH 7.468 H POC ABG pCO2 51.5 H POC ABG pO2 ABG pO2 ABG HCO3 ABG O2 Saturation ABG Base Excess ABG Hemoglobin ABG Oxyhemoglobin ABG Sodium 130.2 L ABG Potassium ABG Chloride 91.0 L ABG Glucose 210 H Oxyhemoglobin Carboxyhemoglobin 1.6 H Sodium Potassium Chloride Carbon Dioxide BUN Creatinine Glucose POC Glucose 173 H 125 H Lactic Acid Calcium Magnesium Ferritin Total Bilirubin Direct Bilirubin AST ALT Alkaline Phosphatase Lactate Dehydrogenase C-Reactive Protein Total Protein Albumin Triglycerides Lipase Arterial Blood Glucose 210 H Arterial Blood Ionized Calcium Urine WBC (Auto) Coronavirus (PCR) SARS-CoV-2 IgG Ab Crossmatch 07/03/20 07/03/20 07/03/20 11:43 12:20 12:20 WBC 16.5 H RBC 3.13 L Hgb 10.4 L Hct 31.8 L MCV 102 H MCH 33 H MCHC RDW 17.2 H Lymph % (Auto) [place] % (Auto) Lymph # (Auto) [place] # (Auto) Baso # (Auto) Seg Neutrophils % Seg Neuts % (Manual) Lymphocytes % (Manual) Nucleated RBC % Seg Neutrophils # Seg Neutrophils # Man Lymphocytes # (Manual) Monocytes # (Manual) Eosinophils # (Manual) PT INR APTT D-Dimer Heparin Anti-Xa Level ABG pH POC ABG pCO2 POC ABG pO2 ABG pO2 ABG HCO3 ABG O2 Saturation ABG Base Excess ABG Hemoglobin ABG Oxyhemoglobin ABG Sodium ABG Potassium ABG Chloride ABG Glucose Oxyhemoglobin Carboxyhemoglobin Sodium 132 L Potassium Chloride 88.5 L Carbon Dioxide 37 H BUN Creatinine 0.3 L Glucose 230 H POC Glucose 223 H Lactic Acid Calcium Magnesium Ferritin Total Bilirubin Direct Bilirubin AST ALT Alkaline Phosphatase Lactate Dehydrogenase C-Reactive Protein Total Protein Albumin Triglycerides Lipase Arterial Blood Glucose Arterial Blood Ionized Calcium Urine WBC (Auto) Coronavirus (PCR) SARS-CoV-2 IgG Ab Crossmatch 07/03/20 07/03/20 07/04/20 17:24 21:41 00:54 WBC RBC Hgb Hct MCV MCH MCHC RDW Lymph % (Auto) [place] % (Auto) Lymph # (Auto) [place] # (Auto) Baso # (Auto) Seg Neutrophils % Seg Neuts % (Manual) Lymphocytes % (Manual) Nucleated RBC % Seg Neutrophils # Seg Neutrophils # Man Lymphocytes # (Manual) Monocytes # (Manual) Eosinophils # (Manual) PT INR APTT D-Dimer Heparin Anti-Xa Level ABG pH POC ABG pCO2 POC ABG pO2 ABG pO2 ABG HCO3 ABG O2 Saturation ABG Base Excess ABG Hemoglobin ABG Oxyhemoglobin ABG Sodium ABG Potassium ABG Chloride ABG Glucose Oxyhemoglobin Carboxyhemoglobin Sodium Potassium Chloride Carbon Dioxide BUN Creatinine Glucose POC Glucose 163 H 220 H 195 H Lactic Acid Calcium Magnesium Ferritin Total Bilirubin Direct Bilirubin AST ALT Alkaline Phosphatase Lactate Dehydrogenase C-Reactive Protein Total Protein Albumin Triglycerides Lipase Arterial Blood Glucose Arterial Blood Ionized Calcium Urine WBC (Auto) Coronavirus (PCR) SARS-CoV-2 IgG Ab Crossmatch 12/27/20 12/27/20 12/27/20 03:25 04:00 04:00 WBC 14.9 H RBC 2.91 L Hgb 9.5 L Hct 29.2 L MCV 100 H MCH 33 H MCHC RDW 16.7 H Lymph % (Auto) 8.4 L [place] % (Auto) Lymph # (Auto) [place] # (Auto) 1.1 H Baso # (Auto) Seg Neutrophils % 84.2 H Seg Neuts % (Manual) Lymphocytes % (Manual) Nucleated RBC % Seg Neutrophils # 12.6 H Seg Neutrophils # Man Lymphocytes # (Manual) Monocytes # (Manual) Eosinophils # (Manual) PT INR APTT D-Dimer Heparin Anti-Xa Level ABG pH 7.474 H POC ABG pCO2 POC ABG pO2 51.8 L ABG pO2 ABG HCO3 ABG O2 Saturation ABG Base Excess ABG Hemoglobin ABG Oxyhemoglobin ABG Sodium ABG Potassium ABG Chloride ABG Glucose Oxyhemoglobin Carboxyhemoglobin Sodium Potassium 3.4 L Chloride 92.1 L Carbon Dioxide 34 H BUN Creatinine 0.3 L Glucose 173 H POC Glucose Lactic Acid Calcium Magnesium Ferritin Total Bilirubin Direct Bilirubin AST ALT Alkaline Phosphatase Lactate Dehydrogenase C-Reactive Protein Total Protein Albumin Triglycerides Lipase Arterial Blood Glucose Arterial Blood Ionized Calcium Urine WBC (Auto) Coronavirus (PCR) SARS-CoV-2 IgG Ab Crossmatch 07/04/20 07/04/20 07/04/20 06:18 11:39 17:18 WBC RBC Hgb Hct MCV MCH MCHC RDW Lymph % (Auto) [place] % (Auto) Lymph # (Auto) [place] # (Auto) Baso # (Auto) Seg Neutrophils % Seg Neuts % (Manual) Lymphocytes % (Manual) Nucleated RBC % Seg Neutrophils # Seg Neutrophils # Man Lymphocytes # (Manual) Monocytes # (Manual) Eosinophils # (Manual) PT INR APTT D-Dimer Heparin Anti-Xa Level ABG pH POC ABG pCO2 POC ABG pO2 ABG pO2 ABG HCO3 ABG O2 Saturation ABG Base Excess ABG Hemoglobin ABG Oxyhemoglobin ABG Sodium ABG Potassium ABG Chloride ABG Glucose Oxyhemoglobin Carboxyhemoglobin Sodium Potassium Chloride Carbon Dioxide BUN Creatinine Glucose POC Glucose 158 H 257 H 148 H Lactic Acid Calcium Magnesium Ferritin Total Bilirubin Direct Bilirubin AST ALT Alkaline Phosphatase Lactate Dehydrogenase C-Reactive Protein Total Protein Albumin Triglycerides Lipase Arterial Blood Glucose Arterial Blood Ionized Calcium Urine WBC (Auto) Coronavirus (PCR) SARS-CoV-2 IgG Ab Crossmatch 07/04/20 07/05/20 07/05/20 23:23 03:13 05:18 WBC 13.3 H RBC 2.90 L Hgb 9.8 L Hct 29.3 L MCV 101 H MCH 34 H MCHC RDW 17.0 H Lymph % (Auto) 11.1 L [place] % (Auto) Lymph # (Auto) [place] # (Auto) Baso # (Auto) Seg Neutrophils % 82.3 H Seg Neuts % (Manual) Lymphocytes % (Manual) Nucleated RBC % Seg Neutrophils # 10.9 H Seg Neutrophils # Man Lymphocytes # (Manual) Monocytes # (Manual) Eosinophils # (Manual) PT INR APTT D-Dimer Heparin Anti-Xa Level ABG pH 7.48 H POC ABG pCO2 52.0 H POC ABG pO2 ABG pO2 ABG HCO3 ABG O2 Saturation ABG Base Excess ABG Hemoglobin 10.0 L ABG Oxyhemoglobin ABG Sodium 131.0 L ABG Potassium 3.3 L ABG Chloride 93.0 L ABG Glucose 177 H Oxyhemoglobin Carboxyhemoglobin Sodium Potassium Chloride Carbon Dioxide BUN Creatinine Glucose POC Glucose 227 H Lactic Acid Calcium Magnesium Ferritin Total Bilirubin Direct Bilirubin AST ALT Alkaline Phosphatase Lactate Dehydrogenase C-Reactive Protein Total Protein Albumin Triglycerides Lipase Arterial Blood Glucose 177 H Arterial Blood Ionized Calcium Urine WBC (Auto) Coronavirus (PCR) SARS-CoV-2 IgG Ab Crossmatch 07/05/20 07/05/20 07/05/20 05:18 05:25 05:57 WBC RBC Hgb Hct MCV MCH MCHC RDW Lymph % (Auto) [place] % (Auto) Lymph # (Auto) [place] # (Auto) Baso # (Auto) Seg Neutrophils % Seg Neuts % (Manual) Lymphocytes % (Manual) Nucleated RBC % Seg Neutrophils # Seg Neutrophils # Man Lymphocytes # (Manual) Monocytes # (Manual) Eosinophils # (Manual) PT INR APTT D-Dimer Heparin Anti-Xa Level ABG pH 7.519 H POC ABG pCO2 POC ABG pO2 198.6 H ABG pO2 ABG HCO3 ABG O2 Saturation ABG Base Excess ABG Hemoglobin 10.3 L ABG Oxyhemoglobin 98.7 H ABG Sodium 133.6 L ABG Potassium 3.3 L ABG Chloride 93.0 L ABG Glucose 175 H Oxyhemoglobin Carboxyhemoglobin Sodium Potassium 3.4 L Chloride 92.5 L Carbon Dioxide 36 H BUN Creatinine 0.3 L Glucose 148 H POC Glucose 170 H Lactic Acid Calcium Magnesium Ferritin Total Bilirubin Direct Bilirubin AST ALT Alkaline Phosphatase Lactate Dehydrogenase C-Reactive Protein Total Protein Albumin Triglycerides Lipase Arterial Blood Glucose 175 H Arterial Blood Ionized Calcium Urine WBC (Auto) Coronavirus (PCR) SARS-CoV-2 IgG Ab Crossmatch 07/05/20 07/05/20 07/06/20 11:37 18:39 00:04 WBC RBC Hgb Hct MCV MCH MCHC RDW Lymph % (Auto) [place] % (Auto) Lymph # (Auto) [place] # (Auto) Baso # (Auto) Seg Neutrophils % Seg Neuts % (Manual) Lymphocytes % (Manual) Nucleated RBC % Seg Neutrophils # Seg Neutrophils # Man Lymphocytes # (Manual) Monocytes # (Manual) Eosinophils # (Manual) PT INR APTT D-Dimer Heparin Anti-Xa Level ABG pH POC ABG pCO2 POC ABG pO2 ABG pO2 ABG HCO3 ABG O2 Saturation ABG Base Excess ABG Hemoglobin ABG Oxyhemoglobin ABG Sodium ABG Potassium ABG Chloride ABG Glucose Oxyhemoglobin Carboxyhemoglobin Sodium Potassium Chloride Carbon Dioxide BUN Creatinine Glucose POC Glucose 195 H 200 H 222 H Lactic Acid Calcium Magnesium Ferritin Total Bilirubin Direct Bilirubin AST ALT Alkaline Phosphatase Lactate Dehydrogenase C-Reactive Protein Total Protein Albumin Triglycerides Lipase Arterial Blood Glucose Arterial Blood Ionized Calcium Urine WBC (Auto) Coronavirus (PCR) SARS-CoV-2 IgG Ab Crossmatch 07/06/20 07/06/20 07/06/20 05:25 06:52 06:52 WBC 15.8 H RBC 3.17 L Hgb 10.4 L Hct 31.5 L MCV 99 H MCH 33 H MCHC RDW 17.0 H Lymph % (Auto) [place] % (Auto) Lymph # (Auto) [place] # (Auto) Baso # (Auto) Seg Neutrophils % Seg Neuts % (Manual) Lymphocytes % (Manual) Nucleated RBC % Seg Neutrophils # Seg Neutrophils # Man Lymphocytes # (Manual) Monocytes # (Manual) Eosinophils # (Manual) PT INR APTT D-Dimer Heparin Anti-Xa Level ABG pH POC ABG pCO2 POC ABG pO2 ABG pO2 ABG HCO3 ABG O2 Saturation ABG Base Excess ABG Hemoglobin ABG Oxyhemoglobin ABG Sodium ABG Potassium ABG Chloride ABG Glucose Oxyhemoglobin Carboxyhemoglobin Sodium 135 L Potassium 3.4 L Chloride 91.9 L Carbon Dioxide 38 H BUN Creatinine 0.3 L Glucose 189 H POC Glucose 165 H Lactic Acid Calcium Magnesium Ferritin Total Bilirubin Direct Bilirubin AST ALT Alkaline Phosphatase Lactate Dehydrogenase C-Reactive Protein Total Protein Albumin Triglycerides Lipase Arterial Blood Glucose Arterial Blood Ionized Calcium Urine WBC (Auto) Coronavirus (PCR) SARS-CoV-2 IgG Ab Crossmatch 07/06/20 07/06/20 07/06/20 13:01 18:04 23:08 WBC RBC Hgb Hct MCV MCH MCHC RDW Lymph % (Auto) [place] % (Auto) Lymph # (Auto) [place] # (Auto) Baso # (Auto) Seg Neutrophils % Seg Neuts % (Manual) Lymphocytes % (Manual) Nucleated RBC % Seg Neutrophils # Seg Neutrophils # Man Lymphocytes # (Manual) Monocytes # (Manual) Eosinophils # (Manual) PT INR APTT D-Dimer Heparin Anti-Xa Level ABG pH POC ABG pCO2 POC ABG pO2 ABG pO2 ABG HCO3 ABG O2 Saturation ABG Base Excess ABG Hemoglobin ABG Oxyhemoglobin ABG Sodium ABG Potassium ABG Chloride ABG Glucose Oxyhemoglobin Carboxyhemoglobin Sodium Potassium Chloride Carbon Dioxide BUN Creatinine Glucose POC Glucose 195 H 169 H 173 H Lactic Acid Calcium Magnesium Ferritin Total Bilirubin Direct Bilirubin AST ALT Alkaline Phosphatase Lactate Dehydrogenase C-Reactive Protein Total Protein Albumin Triglycerides Lipase Arterial Blood Glucose Arterial Blood Ionized Calcium Urine WBC (Auto) Coronavirus (PCR) SARS-CoV-2 IgG Ab Crossmatch 07/07/20 07/07/20 07/07/20 05:35 05:35 05:39 WBC 17.6 H RBC 3.16 L Hgb 10.4 L Hct 31.5 L MCV 100 H MCH 33 H MCHC RDW 16.7 H Lymph % (Auto) 11.1 L [place] % (Auto) Lymph # (Auto) [place] # (Auto) 1.0 H Baso # (Auto) Seg Neutrophils % 83.0 H Seg Neuts % (Manual) Lymphocytes % (Manual) Nucleated RBC % Seg Neutrophils # 14.6 H Seg Neutrophils # Man Lymphocytes # (Manual) Monocytes # (Manual) Eosinophils # (Manual) PT INR APTT D-Dimer Heparin Anti-Xa Level ABG pH POC ABG pCO2 POC ABG pO2 ABG pO2 ABG HCO3 ABG O2 Saturation ABG Base Excess ABG Hemoglobin ABG Oxyhemoglobin ABG Sodium ABG Potassium ABG Chloride ABG Glucose Oxyhemoglobin Carboxyhemoglobin Sodium 135 L Potassium 3.4 L Chloride 94.3 L Carbon Dioxide 32 H BUN Creatinine 0.2 L Glucose 240 H POC Glucose 191 H Lactic Acid Calcium Magnesium Ferritin Total Bilirubin Direct Bilirubin AST ALT Alkaline Phosphatase Lactate Dehydrogenase C-Reactive Protein Total Protein Albumin Triglycerides Lipase Arterial Blood Glucose Arterial Blood Ionized Calcium Urine WBC (Auto) Coronavirus (PCR) SARS-CoV-2 IgG Ab Crossmatch 07/07/20 07/07/20 07/07/20 12:08 16:39 23:41 WBC RBC Hgb Hct MCV MCH MCHC RDW Lymph % (Auto) [place] % (Auto) Lymph # (Auto) [place] # (Auto) Baso # (Auto) Seg Neutrophils % Seg Neuts % (Manual) Lymphocytes % (Manual) Nucleated RBC % Seg Neutrophils # Seg Neutrophils # Man Lymphocytes # (Manual) Monocytes # (Manual) Eosinophils # (Manual) PT INR APTT D-Dimer Heparin Anti-Xa Level ABG pH POC ABG pCO2 POC ABG pO2 ABG pO2 ABG HCO3 ABG O2 Saturation ABG Base Excess ABG Hemoglobin ABG Oxyhemoglobin ABG Sodium ABG Potassium ABG Chloride ABG Glucose Oxyhemoglobin Carboxyhemoglobin Sodium Potassium Chloride Carbon Dioxide BUN Creatinine Glucose POC Glucose 248 H 209 H 231 H Lactic Acid Calcium Magnesium Ferritin Total Bilirubin Direct Bilirubin AST ALT Alkaline Phosphatase Lactate Dehydrogenase C-Reactive Protein Total Protein Albumin Triglycerides Lipase Arterial Blood Glucose Arterial Blood Ionized Calcium Urine WBC (Auto) Coronavirus (PCR) SARS-CoV-2 IgG Ab Crossmatch 07/08/20 07/08/20 07/08/20 04:58 04:58 05:38 WBC 21.0 H RBC 2.86 L Hgb 9.2 L Hct 28.6 L MCV 100 H MCH MCHC RDW 16.7 H Lymph % (Auto) [place] % (Auto) Lymph # (Auto) [place] # (Auto) Baso # (Auto) Seg Neutrophils % Seg Neuts % (Manual) 93.0 H Lymphocytes % (Manual) 3.0 L Nucleated RBC % Seg Neutrophils # Seg Neutrophils # Man 19.5 H Lymphocytes # (Manual) 0.6 L Monocytes # (Manual) Eosinophils # (Manual) PT INR APTT D-Dimer Heparin Anti-Xa Level ABG pH POC ABG pCO2 POC ABG pO2 ABG pO2 ABG HCO3 ABG O2 Saturation ABG Base Excess ABG Hemoglobin ABG Oxyhemoglobin ABG Sodium ABG Potassium ABG Chloride ABG Glucose Oxyhemoglobin Carboxyhemoglobin Sodium Potassium 3.0 L Chloride Carbon Dioxide BUN Creatinine 0.2 L Glucose 201 H POC Glucose 161 H Lactic Acid Calcium 7.9 L D Magnesium Ferritin Total Bilirubin Direct Bilirubin AST ALT Alkaline Phosphatase Lactate Dehydrogenase C-Reactive Protein Total Protein Albumin Triglycerides Lipase Arterial Blood Glucose Arterial Blood Ionized Calcium Urine WBC (Auto) Coronavirus (PCR) SARS-CoV-2 IgG Ab Crossmatch 07/08/20 07/08/20 07/08/20 12:19 16:26 Unknown WBC RBC Hgb Hct MCV MCH MCHC RDW Lymph % (Auto) [place] % (Auto) Lymph # (Auto) [place] # (Auto) Baso # (Auto) Seg Neutrophils % Seg Neuts % (Manual) Lymphocytes % (Manual) Nucleated RBC % Seg Neutrophils # Seg Neutrophils # Man Lymphocytes # (Manual) Monocytes # (Manual) Eosinophils # (Manual) PT INR APTT D-Dimer Heparin Anti-Xa Level ABG pH POC ABG pCO2 POC ABG pO2 ABG pO2 75.3 L ABG HCO3 34.3 H ABG O2 Saturation ABG Base Excess 8.7 H ABG Hemoglobin 10.2 L ABG Oxyhemoglobin ABG Sodium ABG Potassium ABG Chloride ABG Glucose Oxyhemoglobin 93.7 L Carboxyhemoglobin Sodium Potassium Chloride Carbon Dioxide BUN Creatinine Glucose POC Glucose 152 H 173 H Lactic Acid Calcium Magnesium Ferritin Total Bilirubin Direct Bilirubin AST ALT Alkaline Phosphatase Lactate Dehydrogenase C-Reactive Protein Total Protein Albumin Triglycerides Lipase Arterial Blood Glucose Arterial Blood Ionized Calcium Urine WBC (Auto) Coronavirus (PCR) SARS-CoV-2 IgG Ab Crossmatch 07/09/20 07/09/20 07/09/20 00:01 06:00 11:55 WBC RBC Hgb Hct MCV MCH MCHC RDW Lymph % (Auto) [place] % (Auto) Lymph # (Auto) [place] # (Auto) Baso # (Auto) Seg Neutrophils % Seg Neuts % (Manual) Lymphocytes % (Manual) Nucleated RBC % Seg Neutrophils # Seg Neutrophils # Man Lymphocytes # (Manual) Monocytes # (Manual) Eosinophils # (Manual) PT INR APTT D-Dimer Heparin Anti-Xa Level ABG pH POC ABG pCO2 POC ABG pO2 ABG pO2 ABG HCO3 ABG O2 Saturation ABG Base Excess ABG Hemoglobin ABG Oxyhemoglobin ABG Sodium ABG Potassium ABG Chloride ABG Glucose Oxyhemoglobin Carboxyhemoglobin Sodium Potassium Chloride Carbon Dioxide BUN Creatinine Glucose POC Glucose 207 H 141 H 228 H Lactic Acid Calcium Magnesium Ferritin Total Bilirubin Direct Bilirubin AST ALT Alkaline Phosphatase Lactate Dehydrogenase C-Reactive Protein Total Protein Albumin Triglycerides Lipase Arterial Blood Glucose Arterial Blood Ionized Calcium Urine WBC (Auto) Coronavirus (PCR) SARS-CoV-2 IgG Ab Crossmatch 07/09/20 07/09/20 07/09/20 16:47 23:53 Unknown WBC RBC Hgb Hct MCV MCH MCHC RDW Lymph % (Auto) [place] % (Auto) Lymph # (Auto) [place] # (Auto) Baso # (Auto) Seg Neutrophils % Seg Neuts % (Manual) Lymphocytes % (Manual) Nucleated RBC % Seg Neutrophils # Seg Neutrophils # Man Lymphocytes # (Manual) Monocytes # (Manual) Eosinophils # (Manual) PT INR APTT D-Dimer Heparin Anti-Xa Level ABG pH POC ABG pCO2 POC ABG pO2 ABG pO2 ABG HCO3 ABG O2 Saturation ABG Base Excess ABG Hemoglobin ABG Oxyhemoglobin ABG Sodium ABG Potassium ABG Chloride ABG Glucose Oxyhemoglobin Carboxyhemoglobin Sodium 132 L Potassium Chloride 92.7 L Carbon Dioxide 35 H BUN Creatinine 0.2 L Glucose 234 H POC Glucose 136 H 219 H Lactic Acid Calcium Magnesium Ferritin Total Bilirubin Direct Bilirubin AST ALT Alkaline Phosphatase Lactate Dehydrogenase C-Reactive Protein Total Protein Albumin Triglycerides Lipase Arterial Blood Glucose Arterial Blood Ionized Calcium Urine WBC (Auto) Coronavirus (PCR) SARS-CoV-2 IgG Ab Crossmatch 07/10/20 07/10/20 07/10/20 05:20 12:05 18:38 WBC RBC Hgb Hct MCV MCH MCHC RDW Lymph % (Auto) [place] % (Auto) Lymph # (Auto) [place] # (Auto) Baso # (Auto) Seg Neutrophils % Seg Neuts % (Manual) Lymphocytes % (Manual) Nucleated RBC % Seg Neutrophils # Seg Neutrophils # Man Lymphocytes # (Manual) Monocytes # (Manual) Eosinophils # (Manual) PT INR APTT D-Dimer Heparin Anti-Xa Level ABG pH POC ABG pCO2 POC ABG pO2 ABG pO2 ABG HCO3 ABG O2 Saturation ABG Base Excess ABG Hemoglobin ABG Oxyhemoglobin ABG Sodium ABG Potassium ABG Chloride ABG Glucose Oxyhemoglobin Carboxyhemoglobin Sodium Potassium Chloride Carbon Dioxide BUN Creatinine Glucose POC Glucose 221 H 174 H 152 H Lactic Acid Calcium Magnesium Ferritin Total Bilirubin Direct Bilirubin AST ALT Alkaline Phosphatase Lactate Dehydrogenase C-Reactive Protein Total Protein Albumin Triglycerides Lipase Arterial Blood Glucose Arterial Blood Ionized Calcium Urine WBC (Auto) Coronavirus (PCR) SARS-CoV-2 IgG Ab Crossmatch 07/11/20 07/11/20 07/11/20 00:16 05:42 08:13 WBC 11.9 H RBC 3.13 L Hgb 10.2 L Hct 31.2 L MCV 100 H MCH 33 H MCHC RDW 16.4 H Lymph % (Auto) [place] % (Auto) 9.3 H Lymph # (Auto) [place] # (Auto) 1.1 H Baso # (Auto) Seg Neutrophils % 72.7 H Seg Neuts % (Manual) Lymphocytes % (Manual) Nucleated RBC % Seg Neutrophils # 8.7 H Seg Neutrophils # Man Lymphocytes # (Manual) Monocytes # (Manual) Eosinophils # (Manual) PT INR APTT D-Dimer Heparin Anti-Xa Level ABG pH POC ABG pCO2 POC ABG pO2 ABG pO2 ABG HCO3 ABG O2 Saturation ABG Base Excess ABG Hemoglobin ABG Oxyhemoglobin ABG Sodium ABG Potassium ABG Chloride ABG Glucose Oxyhemoglobin Carboxyhemoglobin Sodium Potassium Chloride Carbon Dioxide BUN Creatinine Glucose POC Glucose 170 H 186 H Lactic Acid Calcium Magnesium Ferritin Total Bilirubin Direct Bilirubin AST ALT Alkaline Phosphatase Lactate Dehydrogenase C-Reactive Protein Total Protein Albumin Triglycerides Lipase Arterial Blood Glucose Arterial Blood Ionized Calcium Urine WBC (Auto) Coronavirus (PCR) SARS-CoV-2 IgG Ab Crossmatch 07/11/20 07/11/20 07/11/20 08:13 11:35 18:07 WBC RBC Hgb Hct MCV MCH MCHC RDW Lymph % (Auto) [place] % (Auto) Lymph # (Auto) [place] # (Auto) Baso # (Auto) Seg Neutrophils % Seg Neuts % (Manual) Lymphocytes % (Manual) Nucleated RBC % Seg Neutrophils # Seg Neutrophils # Man Lymphocytes # (Manual) Monocytes # (Manual) Eosinophils # (Manual) PT INR APTT D-Dimer Heparin Anti-Xa Level ABG pH POC ABG pCO2 POC ABG pO2 ABG pO2 ABG HCO3 ABG O2 Saturation ABG Base Excess ABG Hemoglobin ABG Oxyhemoglobin ABG Sodium ABG Potassium ABG Chloride ABG Glucose Oxyhemoglobin Carboxyhemoglobin Sodium 135 L Potassium Chloride 92.8 L Carbon Dioxide 38 H BUN Creatinine 0.2 L Glucose 132 H POC Glucose 129 H 156 H Lactic Acid Calcium Magnesium Ferritin Total Bilirubin Direct Bilirubin AST ALT Alkaline Phosphatase Lactate Dehydrogenase C-Reactive Protein Total Protein Albumin Triglycerides Lipase Arterial Blood Glucose Arterial Blood Ionized Calcium Urine WBC (Auto) Coronavirus (PCR) SARS-CoV-2 IgG Ab Crossmatch 07/11/20 07/11/20 07/12/20 18:36 23:18 05:28 WBC RBC Hgb Hct MCV MCH MCHC RDW Lymph % (Auto) [place] % (Auto) Lymph # (Auto) [place] # (Auto) Baso # (Auto) Seg Neutrophils % Seg Neuts % (Manual) Lymphocytes % (Manual) Nucleated RBC % Seg Neutrophils # Seg Neutrophils # Man Lymphocytes # (Manual) Monocytes # (Manual) Eosinophils # (Manual) PT INR APTT D-Dimer Heparin Anti-Xa Level ABG pH POC ABG pCO2 POC ABG pO2 70.9 L ABG pO2 ABG HCO3 ABG O2 Saturation ABG Base Excess ABG Hemoglobin 10.8 L ABG Oxyhemoglobin 92.5 L ABG Sodium 131.8 L ABG Potassium 3.2 L ABG Chloride 91.0 L ABG Glucose 181 H Oxyhemoglobin Carboxyhemoglobin Sodium Potassium Chloride Carbon Dioxide BUN Creatinine Glucose POC Glucose 189 H 190 H Lactic Acid Calcium Magnesium Ferritin Total Bilirubin Direct Bilirubin AST ALT Alkaline Phosphatase Lactate Dehydrogenase C-Reactive Protein Total Protein Albumin Triglycerides Lipase Arterial Blood Glucose 181 H Arterial Blood Ionized Calcium Urine WBC (Auto) Coronavirus (PCR) SARS-CoV-2 IgG Ab Crossmatch 07/12/20 07/12/20 07/12/20 11:33 17:45 23:59 WBC RBC Hgb Hct MCV MCH MCHC RDW Lymph % (Auto) [place] % (Auto) Lymph # (Auto) [place] # (Auto) Baso # (Auto) Seg Neutrophils % Seg Neuts % (Manual) Lymphocytes % (Manual) Nucleated RBC % Seg Neutrophils # Seg Neutrophils # Man Lymphocytes # (Manual) Monocytes # (Manual) Eosinophils # (Manual) PT INR APTT D-Dimer Heparin Anti-Xa Level ABG pH POC ABG pCO2 POC ABG pO2 ABG pO2 ABG HCO3 ABG O2 Saturation ABG Base Excess ABG Hemoglobin ABG Oxyhemoglobin ABG Sodium ABG Potassium ABG Chloride ABG Glucose Oxyhemoglobin Carboxyhemoglobin Sodium Potassium Chloride Carbon Dioxide BUN Creatinine Glucose POC Glucose 151 H 211 H 169 H Lactic Acid Calcium Magnesium Ferritin Total Bilirubin Direct Bilirubin AST ALT Alkaline Phosphatase Lactate Dehydrogenase C-Reactive Protein Total Protein Albumin Triglycerides Lipase Arterial Blood Glucose Arterial Blood Ionized Calcium Urine WBC (Auto) Coronavirus (PCR) SARS-CoV-2 IgG Ab Crossmatch 07/13/20 07/13/20 07/13/20 05:44 08:31 08:31 WBC 21.3 H RBC 2.92 L Hgb 9.7 L Hct 28.7 L MCV 98 H MCH 33 H MCHC RDW 16.8 H Lymph % (Auto) [place] % (Auto) Lymph # (Auto) [place] # (Auto) Baso # (Auto) Seg Neutrophils % Seg Neuts % (Manual) 96.0 H Lymphocytes % (Manual) 2.0 L Nucleated RBC % Seg Neutrophils # Seg Neutrophils # Man 20.4 H Lymphocytes # (Manual) 0.4 L Monocytes # (Manual) Eosinophils # (Manual) PT INR APTT D-Dimer Heparin Anti-Xa Level ABG pH POC ABG pCO2 POC ABG pO2 ABG pO2 ABG HCO3 ABG O2 Saturation ABG Base Excess ABG Hemoglobin ABG Oxyhemoglobin ABG Sodium ABG Potassium ABG Chloride ABG Glucose Oxyhemoglobin Carboxyhemoglobin Sodium Potassium 2.9 L* D Chloride 94.4 L Carbon Dioxide 37 H BUN Creatinine 0.2 L Glucose 166 H POC Glucose 122 H Lactic Acid Calcium Magnesium Ferritin Total Bilirubin Direct Bilirubin AST ALT Alkaline Phosphatase Lactate Dehydrogenase C-Reactive Protein Total Protein Albumin Triglycerides Lipase Arterial Blood Glucose Arterial Blood Ionized Calcium Urine WBC (Auto) Coronavirus (PCR) SARS-CoV-2 IgG Ab Crossmatch 07/13/20 07/13/20 07/13/20 11:54 13:52 17:40 WBC RBC Hgb Hct MCV MCH MCHC RDW Lymph % (Auto) [place] % (Auto) Lymph # (Auto) [place] # (Auto) Baso # (Auto) Seg Neutrophils % Seg Neuts % (Manual) Lymphocytes % (Manual) Nucleated RBC % Seg Neutrophils # Seg Neutrophils # Man Lymphocytes # (Manual) Monocytes # (Manual) Eosinophils # (Manual) PT INR APTT D-Dimer Heparin Anti-Xa Level ABG pH 7.477 H POC ABG pCO2 54.4 H POC ABG pO2 126.8 H ABG pO2 ABG HCO3 ABG O2 Saturation ABG Base Excess ABG Hemoglobin 11.5 L ABG Oxyhemoglobin ABG Sodium ABG Potassium 3.2 L ABG Chloride 92.0 L ABG Glucose 169 H Oxyhemoglobin Carboxyhemoglobin Sodium Potassium Chloride Carbon Dioxide BUN Creatinine Glucose POC Glucose 132 H 128 H Lactic Acid Calcium Magnesium Ferritin Total Bilirubin Direct Bilirubin AST ALT Alkaline Phosphatase Lactate Dehydrogenase C-Reactive Protein Total Protein Albumin Triglycerides Lipase Arterial Blood Glucose 169 H Arterial Blood Ionized Calcium Urine WBC (Auto) Coronavirus (PCR) SARS-CoV-2 IgG Ab Crossmatch 07/14/20 07/14/20 07/15/20 07:49 17:09 05:27 WBC RBC Hgb Hct MCV MCH MCHC RDW Lymph % (Auto) [place] % (Auto) Lymph # (Auto) [place] # (Auto) Baso # (Auto) Seg Neutrophils % Seg Neuts % (Manual) Lymphocytes % (Manual) Nucleated RBC % Seg Neutrophils # Seg Neutrophils # Man Lymphocytes # (Manual) Monocytes # (Manual) Eosinophils # (Manual) PT INR APTT D-Dimer Heparin Anti-Xa Level ABG pH POC ABG pCO2 POC ABG pO2 ABG pO2 ABG HCO3 ABG O2 Saturation ABG Base Excess ABG Hemoglobin ABG Oxyhemoglobin ABG Sodium ABG Potassium ABG Chloride ABG Glucose Oxyhemoglobin Carboxyhemoglobin Sodium Potassium 2.7 L* Chloride 94.0 L Carbon Dioxide 37 H BUN Creatinine 0.3 L Glucose 110 H POC Glucose 152 H 61 L Lactic Acid Calcium Magnesium Ferritin Total Bilirubin Direct Bilirubin AST ALT Alkaline Phosphatase Lactate Dehydrogenase C-Reactive Protein Total Protein Albumin Triglycerides Lipase Arterial Blood Glucose Arterial Blood Ionized Calcium Urine WBC (Auto) Coronavirus (PCR) SARS-CoV-2 IgG Ab Crossmatch 07/15/20 07/15/20 07/15/20 05:31 11:49 17:18 WBC RBC Hgb Hct MCV MCH MCHC RDW Lymph % (Auto) [place] % (Auto) Lymph # (Auto) [place] # (Auto) Baso # (Auto) Seg Neutrophils % Seg Neuts % (Manual) Lymphocytes % (Manual) Nucleated RBC % Seg Neutrophils # Seg Neutrophils # Man Lymphocytes # (Manual) Monocytes # (Manual) Eosinophils # (Manual) PT INR APTT D-Dimer Heparin Anti-Xa Level ABG pH POC ABG pCO2 POC ABG pO2 ABG pO2 ABG HCO3 ABG O2 Saturation ABG Base Excess ABG Hemoglobin ABG Oxyhemoglobin ABG Sodium ABG Potassium ABG Chloride ABG Glucose Oxyhemoglobin Carboxyhemoglobin Sodium Potassium 3.2 L Chloride 91.2 L Carbon Dioxide 33 H BUN Creatinine 0.3 L Glucose 139 H POC Glucose 148 H 196 H Lactic Acid Calcium Magnesium Ferritin Total Bilirubin Direct Bilirubin AST ALT Alkaline Phosphatase Lactate Dehydrogenase C-Reactive Protein Total Protein Albumin Triglycerides Lipase Arterial Blood Glucose Arterial Blood Ionized Calcium Urine WBC (Auto) Coronavirus (PCR) SARS-CoV-2 IgG Ab Crossmatch 07/15/20 07/16/20 07/16/20 23:08 05:18 05:19 WBC 11.3 H RBC 3.10 L Hgb 10.0 L Hct 30.3 L MCV 98 H MCH MCHC RDW 16.3 H Lymph % (Auto) [place] % (Auto) Lymph # (Auto) [place] # (Auto) Baso # (Auto) Seg Neutrophils % Seg Neuts % (Manual) Lymphocytes % (Manual) Nucleated RBC % Seg Neutrophils # Seg Neutrophils # Man Lymphocytes # (Manual) Monocytes # (Manual) Eosinophils # (Manual) PT INR APTT D-Dimer Heparin Anti-Xa Level ABG pH POC ABG pCO2 POC ABG pO2 ABG pO2 ABG HCO3 ABG O2 Saturation ABG Base Excess ABG Hemoglobin ABG Oxyhemoglobin ABG Sodium ABG Potassium ABG Chloride ABG Glucose Oxyhemoglobin Carboxyhemoglobin Sodium Potassium Chloride Carbon Dioxide BUN Creatinine Glucose POC Glucose 131 H 160 H Lactic Acid Calcium Magnesium Ferritin Total Bilirubin Direct Bilirubin AST ALT Alkaline Phosphatase Lactate Dehydrogenase C-Reactive Protein Total Protein Albumin Triglycerides Lipase Arterial Blood Glucose Arterial Blood Ionized Calcium Urine WBC (Auto) Coronavirus (PCR) SARS-CoV-2 IgG Ab Crossmatch 07/16/20 07/16/20 07/16/20 05:19 11:45 17:17 WBC RBC Hgb Hct MCV MCH MCHC RDW Lymph % (Auto) [place] % (Auto) Lymph # (Auto) [place] # (Auto) Baso # (Auto) Seg Neutrophils % Seg Neuts % (Manual) Lymphocytes % (Manual) Nucleated RBC % Seg Neutrophils # Seg Neutrophils # Man Lymphocytes # (Manual) Monocytes # (Manual) Eosinophils # (Manual) PT INR APTT D-Dimer Heparin Anti-Xa Level ABG pH POC ABG pCO2 POC ABG pO2 ABG pO2 ABG HCO3 ABG O2 Saturation ABG Base Excess ABG Hemoglobin ABG Oxyhemoglobin ABG Sodium ABG Potassium ABG Chloride ABG Glucose Oxyhemoglobin Carboxyhemoglobin Sodium 132 L Potassium 3.4 L Chloride 89.9 L Carbon Dioxide 39 H BUN Creatinine 0.3 L Glucose 174 H POC Glucose 169 H 143 H Lactic Acid Calcium Magnesium Ferritin Total Bilirubin Direct Bilirubin AST ALT Alkaline Phosphatase Lactate Dehydrogenase C-Reactive Protein Total Protein Albumin Triglycerides Lipase Arterial Blood Glucose Arterial Blood Ionized Calcium Urine WBC (Auto) Coronavirus (PCR) SARS-CoV-2 IgG Ab Crossmatch 07/16/20 07/17/20 07/17/20 23:54 05:32 11:26 WBC RBC Hgb Hct MCV MCH MCHC RDW Lymph % (Auto) [place] % (Auto) Lymph # (Auto) [place] # (Auto) Baso # (Auto) Seg Neutrophils % Seg Neuts % (Manual) Lymphocytes % (Manual) Nucleated RBC % Seg Neutrophils # Seg Neutrophils # Man Lymphocytes # (Manual) Monocytes # (Manual) Eosinophils # (Manual) PT INR APTT D-Dimer Heparin Anti-Xa Level ABG pH POC ABG pCO2 POC ABG pO2 ABG pO2 ABG HCO3 ABG O2 Saturation ABG Base Excess ABG Hemoglobin ABG Oxyhemoglobin ABG Sodium ABG Potassium ABG Chloride ABG Glucose Oxyhemoglobin Carboxyhemoglobin Sodium Potassium Chloride Carbon Dioxide BUN Creatinine Glucose POC Glucose 147 H 149 H 211 H Lactic Acid Calcium Magnesium Ferritin Total Bilirubin Direct Bilirubin AST ALT Alkaline Phosphatase Lactate Dehydrogenase C-Reactive Protein Total Protein Albumin Triglycerides Lipase Arterial Blood Glucose Arterial Blood Ionized Calcium Urine WBC (Auto) Coronavirus (PCR) SARS-CoV-2 IgG Ab Crossmatch 07/17/20 07/17/20 07/18/20 18:16 23:12 06:15 WBC RBC Hgb Hct MCV MCH MCHC RDW Lymph % (Auto) [place] % (Auto) Lymph # (Auto) [place] # (Auto) Baso # (Auto) Seg Neutrophils % Seg Neuts % (Manual) Lymphocytes % (Manual) Nucleated RBC % Seg Neutrophils # Seg Neutrophils # Man Lymphocytes # (Manual) Monocytes # (Manual) Eosinophils # (Manual) PT INR APTT D-Dimer Heparin Anti-Xa Level ABG pH POC ABG pCO2 POC ABG pO2 ABG pO2 ABG HCO3 ABG O2 Saturation ABG Base Excess ABG Hemoglobin ABG Oxyhemoglobin ABG Sodium ABG Potassium ABG Chloride ABG Glucose Oxyhemoglobin Carboxyhemoglobin Sodium Potassium Chloride Carbon Dioxide BUN Creatinine Glucose POC Glucose 161 H 136 H 108 H Lactic Acid Calcium Magnesium Ferritin Total Bilirubin Direct Bilirubin AST ALT Alkaline Phosphatase Lactate Dehydrogenase C-Reactive Protein Total Protein Albumin Triglycerides Lipase Arterial Blood Glucose Arterial Blood Ionized Calcium Urine WBC (Auto) Coronavirus (PCR) SARS-CoV-2 IgG Ab Crossmatch 07/18/20 07/18/20 07/18/20 08:47 08:47 11:50 WBC 17.7 H RBC 3.29 L Hgb 10.5 L Hct 31.8 L MCV 97 H MCH MCHC RDW 16.9 H Lymph % (Auto) [place] % (Auto) 8.6 H Lymph # (Auto) [place] # (Auto) 1.5 H Baso # (Auto) Seg Neutrophils % 74.6 H Seg Neuts % (Manual) Lymphocytes % (Manual) Nucleated RBC % Seg Neutrophils # 13.2 H Seg Neutrophils # Man Lymphocytes # (Manual) Monocytes # (Manual) Eosinophils # (Manual) PT INR APTT D-Dimer Heparin Anti-Xa Level ABG pH POC ABG pCO2 POC ABG pO2 ABG pO2 ABG HCO3 ABG O2 Saturation ABG Base Excess ABG Hemoglobin ABG Oxyhemoglobin ABG Sodium ABG Potassium ABG Chloride ABG Glucose Oxyhemoglobin Carboxyhemoglobin Sodium Potassium 2.8 L* Chloride 92.6 L Carbon Dioxide 40 H BUN Creatinine 0.3 L Glucose 177 H POC Glucose 178 H Lactic Acid Calcium Magnesium Ferritin Total Bilirubin Direct Bilirubin AST ALT Alkaline Phosphatase Lactate Dehydrogenase C-Reactive Protein Total Protein Albumin Triglycerides Lipase Arterial Blood Glucose Arterial Blood Ionized Calcium Urine WBC (Auto) Coronavirus (PCR) SARS-CoV-2 IgG Ab Crossmatch 07/18/20 07/18/20 07/19/20 17:18 23:33 05:22 WBC RBC Hgb Hct MCV MCH MCHC RDW Lymph % (Auto) [place] % (Auto) Lymph # (Auto) [place] # (Auto) Baso # (Auto) Seg Neutrophils % Seg Neuts % (Manual) Lymphocytes % (Manual) Nucleated RBC % Seg Neutrophils # Seg Neutrophils # Man Lymphocytes # (Manual) Monocytes # (Manual) Eosinophils # (Manual) PT INR APTT D-Dimer Heparin Anti-Xa Level ABG pH POC ABG pCO2 POC ABG pO2 ABG pO2 ABG HCO3 ABG O2 Saturation ABG Base Excess ABG Hemoglobin ABG Oxyhemoglobin ABG Sodium ABG Potassium ABG Chloride ABG Glucose Oxyhemoglobin Carboxyhemoglobin Sodium Potassium Chloride Carbon Dioxide BUN Creatinine Glucose POC Glucose 171 H 162 H 166 H Lactic Acid Calcium Magnesium Ferritin Total Bilirubin Direct Bilirubin AST ALT Alkaline Phosphatase Lactate Dehydrogenase C-Reactive Protein Total Protein Albumin Triglycerides Lipase Arterial Blood Glucose Arterial Blood Ionized Calcium Urine WBC (Auto) Coronavirus (PCR) SARS-CoV-2 IgG Ab Crossmatch 07/19/20 07/19/20 07/19/20 12:00 16:27 23:41 WBC RBC Hgb Hct MCV MCH MCHC RDW Lymph % (Auto) [place] % (Auto) Lymph # (Auto) [place] # (Auto) Baso # (Auto) Seg Neutrophils % Seg Neuts % (Manual) Lymphocytes % (Manual) Nucleated RBC % Seg Neutrophils # Seg Neutrophils # Man Lymphocytes # (Manual) Monocytes # (Manual) Eosinophils # (Manual) PT INR APTT D-Dimer Heparin Anti-Xa Level ABG pH POC ABG pCO2 POC ABG pO2 ABG pO2 ABG HCO3 ABG O2 Saturation ABG Base Excess ABG Hemoglobin ABG Oxyhemoglobin ABG Sodium ABG Potassium ABG Chloride ABG Glucose Oxyhemoglobin Carboxyhemoglobin Sodium Potassium Chloride Carbon Dioxide BUN Creatinine Glucose POC Glucose 201 H 205 H 106 H Lactic Acid Calcium Magnesium Ferritin Total Bilirubin Direct Bilirubin AST ALT Alkaline Phosphatase Lactate Dehydrogenase C-Reactive Protein Total Protein Albumin Triglycerides Lipase Arterial Blood Glucose Arterial Blood Ionized Calcium Urine WBC (Auto) Coronavirus (PCR) SARS-CoV-2 IgG Ab Crossmatch 07/20/20 07/20/20 07/20/20 05:28 11:18 17:30 WBC RBC Hgb Hct MCV MCH MCHC RDW Lymph % (Auto) [place] % (Auto) Lymph # (Auto) [place] # (Auto) Baso # (Auto) Seg Neutrophils % Seg Neuts % (Manual) Lymphocytes % (Manual) Nucleated RBC % Seg Neutrophils # Seg Neutrophils # Man Lymphocytes # (Manual) Monocytes # (Manual) Eosinophils # (Manual) PT INR APTT D-Dimer Heparin Anti-Xa Level ABG pH POC ABG pCO2 POC ABG pO2 ABG pO2 ABG HCO3 ABG O2 Saturation ABG Base Excess ABG Hemoglobin ABG Oxyhemoglobin ABG Sodium ABG Potassium ABG Chloride ABG Glucose Oxyhemoglobin Carboxyhemoglobin Sodium Potassium Chloride Carbon Dioxide BUN Creatinine Glucose POC Glucose 130 H 195 H 141 H Lactic Acid Calcium Magnesium Ferritin Total Bilirubin Direct Bilirubin AST ALT Alkaline Phosphatase Lactate Dehydrogenase C-Reactive Protein Total Protein Albumin Triglycerides Lipase Arterial Blood Glucose Arterial Blood Ionized Calcium Urine WBC (Auto) Coronavirus (PCR) SARS-CoV-2 IgG Ab Crossmatch 07/20/20 07/21/20 07/21/20 23:26 05:03 17:03 WBC RBC Hgb Hct MCV MCH MCHC RDW Lymph % (Auto) [place] % (Auto) Lymph # (Auto) [place] # (Auto) Baso # (Auto) Seg Neutrophils % Seg Neuts % (Manual) Lymphocytes % (Manual) Nucleated RBC % Seg Neutrophils # Seg Neutrophils # Man Lymphocytes # (Manual) Monocytes # (Manual) Eosinophils # (Manual) PT INR APTT D-Dimer Heparin Anti-Xa Level ABG pH POC ABG pCO2 POC ABG pO2 ABG pO2 ABG HCO3 ABG O2 Saturation ABG Base Excess ABG Hemoglobin ABG Oxyhemoglobin ABG Sodium ABG Potassium ABG Chloride ABG Glucose Oxyhemoglobin Carboxyhemoglobin Sodium Potassium Chloride Carbon Dioxide BUN Creatinine Glucose POC Glucose 116 H 142 H 181 H Lactic Acid Calcium Magnesium Ferritin Total Bilirubin Direct Bilirubin AST ALT Alkaline Phosphatase Lactate Dehydrogenase C-Reactive Protein Total Protein Albumin Triglycerides Lipase Arterial Blood Glucose Arterial Blood Ionized Calcium Urine WBC (Auto) Coronavirus (PCR) SARS-CoV-2 IgG Ab Crossmatch 07/21/20 07/22/20 07/22/20 23:51 06:09 11:40 WBC RBC Hgb Hct MCV MCH MCHC RDW Lymph % (Auto) [place] % (Auto) Lymph # (Auto) [place] # (Auto) Baso # (Auto) Seg Neutrophils % Seg Neuts % (Manual) Lymphocytes % (Manual) Nucleated RBC % Seg Neutrophils # Seg Neutrophils # Man Lymphocytes # (Manual) Monocytes # (Manual) Eosinophils # (Manual) PT INR APTT D-Dimer Heparin Anti-Xa Level ABG pH POC ABG pCO2 POC ABG pO2 ABG pO2 ABG HCO3 ABG O2 Saturation ABG Base Excess ABG Hemoglobin ABG Oxyhemoglobin ABG Sodium ABG Potassium ABG Chloride ABG Glucose Oxyhemoglobin Carboxyhemoglobin Sodium Potassium Chloride Carbon Dioxide BUN Creatinine Glucose POC Glucose 127 H 136 H 160 H Lactic Acid Calcium Magnesium Ferritin Total Bilirubin Direct Bilirubin AST ALT Alkaline Phosphatase Lactate Dehydrogenase C-Reactive Protein Total Protein Albumin Triglycerides Lipase Arterial Blood Glucose Arterial Blood Ionized Calcium Urine WBC (Auto) Coronavirus (PCR) SARS-CoV-2 IgG Ab Crossmatch 07/22/20 07/22/20 07/23/20 18:14 23:25 05:58 WBC 12.2 H RBC 3.44 L Hgb 10.9 L Hct 33.9 L MCV 99 H MCH MCHC RDW 16.9 H Lymph % (Auto) [place] % (Auto) 10.0 H Lymph # (Auto) [place] # (Auto) 1.2 H Baso # (Auto) Seg Neutrophils % Seg Neuts % (Manual) Lymphocytes % (Manual) Nucleated RBC % Seg Neutrophils # 8.3 H Seg Neutrophils # Man Lymphocytes # (Manual) Monocytes # (Manual) Eosinophils # (Manual) PT INR APTT D-Dimer Heparin Anti-Xa Level ABG pH POC ABG pCO2 POC ABG pO2 ABG pO2 ABG HCO3 ABG O2 Saturation ABG Base Excess ABG Hemoglobin ABG Oxyhemoglobin ABG Sodium ABG Potassium ABG Chloride ABG Glucose Oxyhemoglobin Carboxyhemoglobin Sodium Potassium Chloride Carbon Dioxide BUN Creatinine Glucose POC Glucose 189 H 164 H Lactic Acid Calcium Magnesium Ferritin Total Bilirubin Direct Bilirubin AST ALT Alkaline Phosphatase Lactate Dehydrogenase C-Reactive Protein Total Protein Albumin Triglycerides Lipase Arterial Blood Glucose Arterial Blood Ionized Calcium Urine WBC (Auto) Coronavirus (PCR) SARS-CoV-2 IgG Ab Crossmatch 07/23/20 07/23/20 07/23/20 05:58 06:02 12:14 WBC RBC Hgb Hct MCV MCH MCHC RDW Lymph % (Auto) [place] % (Auto) Lymph # (Auto) [place] # (Auto) Baso # (Auto) Seg Neutrophils % Seg Neuts % (Manual) Lymphocytes % (Manual) Nucleated RBC % Seg Neutrophils # Seg Neutrophils # Man Lymphocytes # (Manual) Monocytes # (Manual) Eosinophils # (Manual) PT INR APTT D-Dimer Heparin Anti-Xa Level ABG pH POC ABG pCO2 POC ABG pO2 ABG pO2 ABG HCO3 ABG O2 Saturation ABG Base Excess ABG Hemoglobin ABG Oxyhemoglobin ABG Sodium ABG Potassium ABG Chloride ABG Glucose Oxyhemoglobin Carboxyhemoglobin Sodium Potassium 2.9 L* Chloride 94.9 L Carbon Dioxide 33 H D BUN Creatinine 0.4 L Glucose 129 H POC Glucose 111 H 142 H Lactic Acid Calcium Magnesium Ferritin Total Bilirubin Direct Bilirubin AST ALT Alkaline Phosphatase Lactate Dehydrogenase C-Reactive Protein Total Protein Albumin 3.5 L Triglycerides Lipase Arterial Blood Glucose Arterial Blood Ionized Calcium Urine WBC (Auto) Coronavirus (PCR) SARS-CoV-2 IgG Ab Crossmatch 07/23/20 07/23/20 07/24/20 17:20 23:39 05:05 WBC 13.3 H RBC 3.40 L Hgb 10.8 L Hct 33.4 L MCV 98 H MCH MCHC RDW 16.7 H Lymph % (Auto) [place] % (Auto) 10.0 H Lymph # (Auto) [place] # (Auto) 1.3 H Baso # (Auto) Seg Neutrophils % Seg Neuts % (Manual) Lymphocytes % (Manual) Nucleated RBC % Seg Neutrophils # 9.0 H Seg Neutrophils # Man Lymphocytes # (Manual) Monocytes # (Manual) Eosinophils # (Manual) PT INR APTT D-Dimer Heparin Anti-Xa Level ABG pH POC ABG pCO2 POC ABG pO2 ABG pO2 ABG HCO3 ABG O2 Saturation ABG Base Excess ABG Hemoglobin ABG Oxyhemoglobin ABG Sodium ABG Potassium ABG Chloride ABG Glucose Oxyhemoglobin Carboxyhemoglobin Sodium Potassium Chloride Carbon Dioxide BUN Creatinine Glucose POC Glucose 150 H 120 H Lactic Acid Calcium Magnesium Ferritin Total Bilirubin Direct Bilirubin AST ALT Alkaline Phosphatase Lactate Dehydrogenase C-Reactive Protein Total Protein Albumin Triglycerides Lipase Arterial Blood Glucose Arterial Blood Ionized Calcium Urine WBC (Auto) Coronavirus (PCR) SARS-CoV-2 IgG Ab Crossmatch 07/24/20 07/24/20 07/24/20 05:05 05:39 11:30 WBC RBC Hgb Hct MCV MCH MCHC RDW Lymph % (Auto) [place] % (Auto) Lymph # (Auto) [place] # (Auto) Baso # (Auto) Seg Neutrophils % Seg Neuts % (Manual) Lymphocytes % (Manual) Nucleated RBC % Seg Neutrophils # Seg Neutrophils # Man Lymphocytes # (Manual) Monocytes # (Manual) Eosinophils # (Manual) PT INR APTT D-Dimer Heparin Anti-Xa Level ABG pH POC ABG pCO2 POC ABG pO2 ABG pO2 ABG HCO3 ABG O2 Saturation ABG Base Excess ABG Hemoglobin ABG Oxyhemoglobin ABG Sodium ABG Potassium ABG Chloride ABG Glucose Oxyhemoglobin Carboxyhemoglobin Sodium Potassium Chloride 97.4 L Carbon Dioxide BUN Creatinine 0.3 L Glucose 111 H POC Glucose 118 H 160 H Lactic Acid Calcium Magnesium Ferritin Total Bilirubin Direct Bilirubin AST ALT Alkaline Phosphatase Lactate Dehydrogenase C-Reactive Protein Total Protein Albumin Triglycerides Lipase Arterial Blood Glucose Arterial Blood Ionized Calcium Urine WBC (Auto) Coronavirus (PCR) SARS-CoV-2 IgG Ab Crossmatch 07/24/20 07/24/2021 16:45 23:43 05:00 WBC RBC Hgb Hct MCV MCH MCHC RDW Lymph % (Auto) [place] % (Auto) Lymph # (Auto) [place] # (Auto) Baso # (Auto) Seg Neutrophils % Seg Neuts % (Manual) Lymphocytes % (Manual) Nucleated RBC % Seg Neutrophils # Seg Neutrophils # Man Lymphocytes # (Manual) Monocytes # (Manual) Eosinophils # (Manual) PT INR APTT D-Dimer Heparin Anti-Xa Level ABG pH POC ABG pCO2 POC ABG pO2 ABG pO2 ABG HCO3 ABG O2 Saturation ABG Base Excess ABG Hemoglobin ABG Oxyhemoglobin ABG Sodium ABG Potassium ABG Chloride ABG Glucose Oxyhemoglobin Carboxyhemoglobin Sodium Potassium Chloride Carbon Dioxide BUN Creatinine Glucose POC Glucose 181 H 122 H 114 H Lactic Acid Calcium Magnesium Ferritin Total Bilirubin Direct Bilirubin AST ALT Alkaline Phosphatase Lactate Dehydrogenase C-Reactive Protein Total Protein Albumin Triglycerides Lipase Arterial Blood Glucose Arterial Blood Ionized Calcium Urine WBC (Auto) Coronavirus (PCR) SARS-CoV-2 IgG Ab Crossmatch 07/25/20 07/25/20 07/25/20 11:44 16:44 23:41 WBC RBC Hgb Hct MCV MCH MCHC RDW Lymph % (Auto) [place] % (Auto) Lymph # (Auto) [place] # (Auto) Baso # (Auto) Seg Neutrophils % Seg Neuts % (Manual) Lymphocytes % (Manual) Nucleated RBC % Seg Neutrophils # Seg Neutrophils # Man Lymphocytes # (Manual) Monocytes # (Manual) Eosinophils # (Manual) PT INR APTT D-Dimer Heparin Anti-Xa Level ABG pH POC ABG pCO2 POC ABG pO2 ABG pO2 ABG HCO3 ABG O2 Saturation ABG Base Excess ABG Hemoglobin ABG Oxyhemoglobin ABG Sodium ABG Potassium ABG Chloride ABG Glucose Oxyhemoglobin Carboxyhemoglobin Sodium Potassium Chloride Carbon Dioxide BUN Creatinine Glucose POC Glucose 298 H 166 H 133 H Lactic Acid Calcium Magnesium Ferritin Total Bilirubin Direct Bilirubin AST ALT Alkaline Phosphatase Lactate Dehydrogenase C-Reactive Protein Total Protein Albumin Triglycerides Lipase Arterial Blood Glucose Arterial Blood Ionized Calcium Urine WBC (Auto) Coronavirus (PCR) SARS-CoV-2 IgG Ab Crossmatch 07/26/20 07/26/20 07/26/20 05:17 11:17 18:07 WBC RBC Hgb Hct MCV MCH MCHC RDW Lymph % (Auto) [place] % (Auto) Lymph # (Auto) [place] # (Auto) Baso # (Auto) Seg Neutrophils % Seg Neuts % (Manual) Lymphocytes % (Manual) Nucleated RBC % Seg Neutrophils # Seg Neutrophils # Man Lymphocytes # (Manual) Monocytes # (Manual) Eosinophils # (Manual) PT INR APTT D-Dimer Heparin Anti-Xa Level ABG pH POC ABG pCO2 POC ABG pO2 ABG pO2 ABG HCO3 ABG O2 Saturation ABG Base Excess ABG Hemoglobin ABG Oxyhemoglobin ABG Sodium ABG Potassium ABG Chloride ABG Glucose Oxyhemoglobin Carboxyhemoglobin Sodium Potassium Chloride Carbon Dioxide BUN Creatinine Glucose POC Glucose 113 H 157 H 154 H Lactic Acid Calcium Magnesium Ferritin Total Bilirubin Direct Bilirubin AST ALT Alkaline Phosphatase Lactate Dehydrogenase C-Reactive Protein Total Protein Albumin Triglycerides Lipase Arterial Blood Glucose Arterial Blood Ionized Calcium Urine WBC (Auto) Coronavirus (PCR) SARS-CoV-2 IgG Ab Crossmatch 07/26/20 07/27/20 07/27/20 23:44 08:26 08:26 WBC RBC 3.63 L Hgb Hct MCV 98 H MCH MCHC RDW 17.5 H Lymph % (Auto) [place] % (Auto) 10.6 H Lymph # (Auto) [place] # (Auto) 1.1 H Baso # (Auto) Seg Neutrophils % Seg Neuts % (Manual) Lymphocytes % (Manual) Nucleated RBC % Seg Neutrophils # Seg Neutrophils # Man Lymphocytes # (Manual) Monocytes # (Manual) Eosinophils # (Manual) PT INR APTT D-Dimer Heparin Anti-Xa Level ABG pH POC ABG pCO2 POC ABG pO2 ABG pO2 ABG HCO3 ABG O2 Saturation ABG Base Excess ABG Hemoglobin ABG Oxyhemoglobin ABG Sodium ABG Potassium ABG Chloride ABG Glucose Oxyhemoglobin Carboxyhemoglobin Sodium Potassium Chloride 97.9 L Carbon Dioxide 37 H D BUN Creatinine 0.4 L Glucose 115 H POC Glucose 148 H Lactic Acid Calcium Magnesium Ferritin Total Bilirubin Direct Bilirubin AST ALT Alkaline Phosphatase Lactate Dehydrogenase C-Reactive Protein Total Protein Albumin Triglycerides Lipase Arterial Blood Glucose Arterial Blood Ionized Calcium Urine WBC (Auto) Coronavirus (PCR) SARS-CoV-2 IgG Ab Crossmatch 07/27/20 07/27/20 07/27/20 11:41 16:50 23:22 WBC RBC Hgb Hct MCV MCH MCHC RDW Lymph % (Auto) [place] % (Auto) Lymph # (Auto) [place] # (Auto) Baso # (Auto) Seg Neutrophils % Seg Neuts % (Manual) Lymphocytes % (Manual) Nucleated RBC % Seg Neutrophils # Seg Neutrophils # Man Lymphocytes # (Manual) Monocytes # (Manual) Eosinophils # (Manual) PT INR APTT D-Dimer Heparin Anti-Xa Level ABG pH POC ABG pCO2 POC ABG pO2 ABG pO2 ABG HCO3 ABG O2 Saturation ABG Base Excess ABG Hemoglobin ABG Oxyhemoglobin ABG Sodium ABG Potassium ABG Chloride ABG Glucose Oxyhemoglobin Carboxyhemoglobin Sodium Potassium Chloride Carbon Dioxide BUN Creatinine Glucose POC Glucose 169 H 132 H 120 H Lactic Acid Calcium Magnesium Ferritin Total Bilirubin Direct Bilirubin AST ALT Alkaline Phosphatase Lactate Dehydrogenase C-Reactive Protein Total Protein Albumin Triglycerides Lipase Arterial Blood Glucose Arterial Blood Ionized Calcium Urine WBC (Auto) Coronavirus (PCR) SARS-CoV-2 IgG Ab Crossmatch 07/28/20 07/29/20 07/29/20 17:39 14:14 16:32 WBC RBC Hgb Hct MCV MCH MCHC RDW Lymph % (Auto) [place] % (Auto) Lymph # (Auto) [place] # (Auto) Baso # (Auto) Seg Neutrophils % Seg Neuts % (Manual) Lymphocytes % (Manual) Nucleated RBC % Seg Neutrophils # Seg Neutrophils # Man Lymphocytes # (Manual) Monocytes # (Manual) Eosinophils # (Manual) PT INR APTT D-Dimer Heparin Anti-Xa Level ABG pH POC ABG pCO2 POC ABG pO2 ABG pO2 ABG HCO3 ABG O2 Saturation ABG Base Excess ABG Hemoglobin ABG Oxyhemoglobin ABG Sodium ABG Potassium ABG Chloride ABG Glucose Oxyhemoglobin Carboxyhemoglobin Sodium Potassium Chloride Carbon Dioxide BUN Creatinine Glucose POC Glucose 187 H 188 H 193 H Lactic Acid Calcium Magnesium Ferritin Total Bilirubin Direct Bilirubin AST ALT Alkaline Phosphatase Lactate Dehydrogenase C-Reactive Protein Total Protein Albumin Triglycerides Lipase Arterial Blood Glucose Arterial Blood Ionized Calcium Urine WBC (Auto) Coronavirus (PCR) SARS-CoV-2 IgG Ab Crossmatch 07/30/20 07/30/20 07/30/20 12:03 15:59 23:20 WBC RBC Hgb Hct MCV MCH MCHC RDW Lymph % (Auto) [place] % (Auto) Lymph # (Auto) [place] # (Auto) Baso # (Auto) Seg Neutrophils % Seg Neuts % (Manual) Lymphocytes % (Manual) Nucleated RBC % Seg Neutrophils # Seg Neutrophils # Man Lymphocytes # (Manual) Monocytes # (Manual) Eosinophils # (Manual) PT INR APTT D-Dimer Heparin Anti-Xa Level ABG pH POC ABG pCO2 POC ABG pO2 ABG pO2 ABG HCO3 ABG O2 Saturation ABG Base Excess ABG Hemoglobin ABG Oxyhemoglobin ABG Sodium ABG Potassium ABG Chloride ABG Glucose Oxyhemoglobin Carboxyhemoglobin Sodium Potassium Chloride Carbon Dioxide BUN Creatinine Glucose POC Glucose 133 H 191 H 144 H Lactic Acid Calcium Magnesium Ferritin Total Bilirubin Direct Bilirubin AST ALT Alkaline Phosphatase Lactate Dehydrogenase C-Reactive Protein Total Protein Albumin Triglycerides Lipase Arterial Blood Glucose Arterial Blood Ionized Calcium Urine WBC (Auto) Coronavirus (PCR) SARS-CoV-2 IgG Ab Crossmatch 07/31/20 07/31/20 07/31/20 05:28 12:01 16:43 WBC RBC Hgb Hct MCV MCH MCHC RDW Lymph % (Auto) [place] % (Auto) Lymph # (Auto) [place] # (Auto) Baso # (Auto) Seg Neutrophils % Seg Neuts % (Manual) Lymphocytes % (Manual) Nucleated RBC % Seg Neutrophils # Seg Neutrophils # Man Lymphocytes # (Manual) Monocytes # (Manual) Eosinophils # (Manual) PT INR APTT D-Dimer Heparin Anti-Xa Level ABG pH POC ABG pCO2 POC ABG pO2 ABG pO2 ABG HCO3 ABG O2 Saturation ABG Base Excess ABG Hemoglobin ABG Oxyhemoglobin ABG Sodium ABG Potassium ABG Chloride ABG Glucose Oxyhemoglobin Carboxyhemoglobin Sodium Potassium Chloride Carbon Dioxide BUN Creatinine Glucose POC Glucose 128 H 137 H 170 H Lactic Acid Calcium Magnesium Ferritin Total Bilirubin Direct Bilirubin AST ALT Alkaline Phosphatase Lactate Dehydrogenase C-Reactive Protein Total Protein Albumin Triglycerides Lipase Arterial Blood Glucose Arterial Blood Ionized Calcium Urine WBC (Auto) Coronavirus (PCR) SARS-CoV-2 IgG Ab Crossmatch 07/31/20 08/01/20 08/01/20 20:28 07:44 11:02 WBC RBC Hgb Hct MCV MCH MCHC RDW Lymph % (Auto) [place] % (Auto) Lymph # (Auto) [place] # (Auto) Baso # (Auto) Seg Neutrophils % Seg Neuts % (Manual) Lymphocytes % (Manual) Nucleated RBC % Seg Neutrophils # Seg Neutrophils # Man Lymphocytes # (Manual) Monocytes # (Manual) Eosinophils # (Manual) PT INR APTT D-Dimer Heparin Anti-Xa Level ABG pH POC ABG pCO2 POC ABG pO2 ABG pO2 ABG HCO3 ABG O2 Saturation ABG Base Excess ABG Hemoglobin ABG Oxyhemoglobin ABG Sodium ABG Potassium ABG Chloride ABG Glucose Oxyhemoglobin Carboxyhemoglobin Sodium Potassium Chloride Carbon Dioxide BUN Creatinine Glucose POC Glucose 142 H 111 H 137 H Lactic Acid Calcium Magnesium Ferritin Total Bilirubin Direct Bilirubin AST ALT Alkaline Phosphatase Lactate Dehydrogenase C-Reactive Protein Total Protein Albumin Triglycerides Lipase Arterial Blood Glucose Arterial Blood Ionized Calcium Urine WBC (Auto) Coronavirus (PCR) SARS-CoV-2 IgG Ab Crossmatch 08/01/20 08/01/20 08/02/20 15:46 20:46 05:55 WBC 12.4 H RBC Hgb Hct MCV 99 H MCH MCHC RDW 16.9 H Lymph % (Auto) [place] % (Auto) 9.7 H Lymph # (Auto) [place] # (Auto) 1.2 H Baso # (Auto) Seg Neutrophils % Seg Neuts % (Manual) Lymphocytes % (Manual) Nucleated RBC % Seg Neutrophils # 8.5 H Seg Neutrophils # Man Lymphocytes # (Manual) Monocytes # (Manual) Eosinophils # (Manual) PT INR APTT D-Dimer Heparin Anti-Xa Level ABG pH POC ABG pCO2 POC ABG pO2 ABG pO2 ABG HCO3 ABG O2 Saturation ABG Base Excess ABG Hemoglobin ABG Oxyhemoglobin ABG Sodium ABG Potassium ABG Chloride ABG Glucose Oxyhemoglobin Carboxyhemoglobin Sodium Potassium Chloride Carbon Dioxide BUN Creatinine Glucose POC Glucose 131 H 123 H Lactic Acid Calcium Magnesium Ferritin Total Bilirubin Direct Bilirubin AST ALT Alkaline Phosphatase Lactate Dehydrogenase C-Reactive Protein Total Protein Albumin Triglycerides Lipase Arterial Blood Glucose Arterial Blood Ionized Calcium Urine WBC (Auto) Coronavirus (PCR) SARS-CoV-2 IgG Ab Crossmatch 08/02/20 08/02/20 08/02/20 05:55 08:19 12:24 WBC RBC Hgb Hct MCV MCH MCHC RDW Lymph % (Auto) [place] % (Auto) Lymph # (Auto) [place] # (Auto) Baso # (Auto) Seg Neutrophils % Seg Neuts % (Manual) Lymphocytes % (Manual) Nucleated RBC % Seg Neutrophils # Seg Neutrophils # Man Lymphocytes # (Manual) Monocytes # (Manual) Eosinophils # (Manual) PT INR APTT D-Dimer Heparin Anti-Xa Level ABG pH POC ABG pCO2 POC ABG pO2 ABG pO2 ABG HCO3 ABG O2 Saturation ABG Base Excess ABG Hemoglobin ABG Oxyhemoglobin ABG Sodium ABG Potassium ABG Chloride ABG Glucose Oxyhemoglobin Carboxyhemoglobin Sodium Potassium 2.9 L* Chloride 96.5 L Carbon Dioxide 39 H BUN Creatinine 0.3 L Glucose 105 H POC Glucose 152 H 144 H Lactic Acid Calcium Magnesium Ferritin Total Bilirubin Direct Bilirubin AST ALT 118 H Alkaline Phosphatase Lactate Dehydrogenase C-Reactive Protein Total Protein Albumin 3.3 L Triglycerides Lipase Arterial Blood Glucose Arterial Blood Ionized Calcium Urine WBC (Auto) Coronavirus (PCR) SARS-CoV-2 IgG Ab Crossmatch 08/02/20 08/02/20 08/02/20 13:55 16:23 17:00 WBC RBC Hgb Hct MCV MCH MCHC RDW Lymph % (Auto) [place] % (Auto) Lymph # (Auto) [place] # (Auto) Baso # (Auto) Seg Neutrophils % Seg Neuts % (Manual) Lymphocytes % (Manual) Nucleated RBC % Seg Neutrophils # Seg Neutrophils # Man Lymphocytes # (Manual) Monocytes # (Manual) Eosinophils # (Manual) PT INR APTT D-Dimer Heparin Anti-Xa Level ABG pH POC ABG pCO2 POC ABG pO2 ABG pO2 ABG HCO3 ABG O2 Saturation ABG Base Excess ABG Hemoglobin ABG Oxyhemoglobin ABG Sodium ABG Potassium ABG Chloride ABG Glucose Oxyhemoglobin Carboxyhemoglobin Sodium Potassium 3.0 L Chloride Carbon Dioxide BUN Creatinine Glucose POC Glucose 142 H 193 H Lactic Acid Calcium Magnesium Ferritin Total Bilirubin Direct Bilirubin AST ALT Alkaline Phosphatase Lactate Dehydrogenase C-Reactive Protein Total Protein Albumin Triglycerides Lipase Arterial Blood Glucose Arterial Blood Ionized Calcium Urine WBC (Auto) Coronavirus (PCR) SARS-CoV-2 IgG Ab Crossmatch 08/02/20 08/03/20 08/03/20 21:21 05:18 08:05 WBC RBC Hgb Hct MCV MCH MCHC RDW Lymph % (Auto) [place] % (Auto) Lymph # (Auto) [place] # (Auto) Baso # (Auto) Seg Neutrophils % Seg Neuts % (Manual) Lymphocytes % (Manual) Nucleated RBC % Seg Neutrophils # Seg Neutrophils # Man Lymphocytes # (Manual) Monocytes # (Manual) Eosinophils # (Manual) PT INR APTT D-Dimer Heparin Anti-Xa Level ABG pH POC ABG pCO2 POC ABG pO2 ABG pO2 ABG HCO3 ABG O2 Saturation ABG Base Excess ABG Hemoglobin ABG Oxyhemoglobin ABG Sodium ABG Potassium ABG Chloride ABG Glucose Oxyhemoglobin Carboxyhemoglobin Sodium Potassium Chloride Carbon Dioxide 32 H D BUN Creatinine 0.4 L Glucose POC Glucose 161 H 107 H Lactic Acid Calcium Magnesium Ferritin Total Bilirubin Direct Bilirubin AST ALT Alkaline Phosphatase Lactate Dehydrogenase C-Reactive Protein Total Protein Albumin Triglycerides Lipase Arterial Blood Glucose Arterial Blood Ionized Calcium Urine WBC (Auto) Coronavirus (PCR) SARS-CoV-2 IgG Ab Crossmatch 08/03/20 08/03/20 08/04/20 12:03 20:20 07:46 WBC RBC Hgb Hct MCV MCH MCHC RDW Lymph % (Auto) [place] % (Auto) Lymph # (Auto) [place] # (Auto) Baso # (Auto) Seg Neutrophils % Seg Neuts % (Manual) Lymphocytes % (Manual) Nucleated RBC % Seg Neutrophils # Seg Neutrophils # Man Lymphocytes # (Manual) Monocytes # (Manual) Eosinophils # (Manual) PT INR APTT D-Dimer Heparin Anti-Xa Level ABG pH POC ABG pCO2 POC ABG pO2 ABG pO2 ABG HCO3 ABG O2 Saturation ABG Base Excess ABG Hemoglobin ABG Oxyhemoglobin ABG Sodium ABG Potassium ABG Chloride ABG Glucose Oxyhemoglobin Carboxyhemoglobin Sodium Potassium Chloride Carbon Dioxide BUN Creatinine Glucose POC Glucose 135 H 167 H 109 H Lactic Acid Calcium Magnesium Ferritin Total Bilirubin Direct Bilirubin AST ALT Alkaline Phosphatase Lactate Dehydrogenase C-Reactive Protein Total Protein Albumin Triglycerides Lipase Arterial Blood Glucose Arterial Blood Ionized Calcium Urine WBC (Auto) Coronavirus (PCR) SARS-CoV-2 IgG Ab Crossmatch 08/04/20 08/04/20 08/04/20 11:54 16:48 20:39 WBC RBC Hgb Hct MCV MCH MCHC RDW Lymph % (Auto) [place] % (Auto) Lymph # (Auto) [place] # (Auto) Baso # (Auto) Seg Neutrophils % Seg Neuts % (Manual) Lymphocytes % (Manual) Nucleated RBC % Seg Neutrophils # Seg Neutrophils # Man Lymphocytes # (Manual) Monocytes # (Manual) Eosinophils # (Manual) PT INR APTT D-Dimer Heparin Anti-Xa Level ABG pH POC ABG pCO2 POC ABG pO2 ABG pO2 ABG HCO3 ABG O2 Saturation ABG Base Excess ABG Hemoglobin ABG Oxyhemoglobin ABG Sodium ABG Potassium ABG Chloride ABG Glucose Oxyhemoglobin Carboxyhemoglobin Sodium Potassium Chloride Carbon Dioxide BUN Creatinine Glucose POC Glucose 133 H 150 H 139 H Lactic Acid Calcium Magnesium Ferritin Total Bilirubin Direct Bilirubin AST ALT Alkaline Phosphatase Lactate Dehydrogenase C-Reactive Protein Total Protein Albumin Triglycerides Lipase Arterial Blood Glucose Arterial Blood Ionized Calcium Urine WBC (Auto) Coronavirus (PCR) SARS-CoV-2 IgG Ab Crossmatch 08/05/20 08/05/20 08/05/20 07:45 11:36 16:09 WBC RBC Hgb Hct MCV MCH MCHC RDW Lymph % (Auto) [place] % (Auto) Lymph # (Auto) [place] # (Auto) Baso # (Auto) Seg Neutrophils % Seg Neuts % (Manual) Lymphocytes % (Manual) Nucleated RBC % Seg Neutrophils # Seg Neutrophils # Man Lymphocytes # (Manual) Monocytes # (Manual) Eosinophils # (Manual) PT INR APTT D-Dimer Heparin Anti-Xa Level ABG pH POC ABG pCO2 POC ABG pO2 ABG pO2 ABG HCO3 ABG O2 Saturation ABG Base Excess ABG Hemoglobin ABG Oxyhemoglobin ABG Sodium ABG Potassium ABG Chloride ABG Glucose Oxyhemoglobin Carboxyhemoglobin Sodium Potassium Chloride Carbon Dioxide BUN Creatinine Glucose POC Glucose 115 H 112 H 118 H Lactic Acid Calcium Magnesium Ferritin Total Bilirubin Direct Bilirubin AST ALT Alkaline Phosphatase Lactate Dehydrogenase C-Reactive Protein Total Protein Albumin Triglycerides Lipase Arterial Blood Glucose Arterial Blood Ionized Calcium Urine WBC (Auto) Coronavirus (PCR) SARS-CoV-2 IgG Ab Crossmatch 08/05/20 08/06/20 08/06/20 22:06 11:09 16:51 WBC RBC Hgb Hct MCV MCH MCHC RDW Lymph % (Auto) [place] % (Auto) Lymph # (Auto) [place] # (Auto) Baso # (Auto) Seg Neutrophils % Seg Neuts % (Manual) Lymphocytes % (Manual) Nucleated RBC % Seg Neutrophils # Seg Neutrophils # Man Lymphocytes # (Manual) Monocytes # (Manual) Eosinophils # (Manual) PT INR APTT D-Dimer Heparin Anti-Xa Level ABG pH POC ABG pCO2 POC ABG pO2 ABG pO2 ABG HCO3 ABG O2 Saturation ABG Base Excess ABG Hemoglobin ABG Oxyhemoglobin ABG Sodium ABG Potassium ABG Chloride ABG Glucose Oxyhemoglobin Carboxyhemoglobin Sodium Potassium Chloride Carbon Dioxide BUN Creatinine Glucose POC Glucose 120 H 125 H 135 H Lactic Acid Calcium Magnesium Ferritin Total Bilirubin Direct Bilirubin AST ALT Alkaline Phosphatase Lactate Dehydrogenase C-Reactive Protein Total Protein Albumin Triglycerides Lipase Arterial Blood Glucose Arterial Blood Ionized Calcium Urine WBC (Auto) Coronavirus (PCR) SARS-CoV-2 IgG Ab Crossmatch 01/08/07/20 08/07/20 20:21 08:15 12:46 WBC RBC Hgb Hct MCV MCH MCHC RDW Lymph % (Auto) [place] % (Auto) Lymph # (Auto) [place] # (Auto) Baso # (Auto) Seg Neutrophils % Seg Neuts % (Manual) Lymphocytes % (Manual) Nucleated RBC % Seg Neutrophils # Seg Neutrophils # Man Lymphocytes # (Manual) Monocytes # (Manual) Eosinophils # (Manual) PT INR APTT D-Dimer Heparin Anti-Xa Level ABG pH POC ABG pCO2 POC ABG pO2 ABG pO2 ABG HCO3 ABG O2 Saturation ABG Base Excess ABG Hemoglobin ABG Oxyhemoglobin ABG Sodium ABG Potassium ABG Chloride ABG Glucose Oxyhemoglobin Carboxyhemoglobin Sodium Potassium Chloride Carbon Dioxide BUN Creatinine Glucose POC Glucose 127 H 120 H 113 H Lactic Acid Calcium Magnesium Ferritin Total Bilirubin Direct Bilirubin AST ALT Alkaline Phosphatase Lactate Dehydrogenase C-Reactive Protein Total Protein Albumin Triglycerides Lipase Arterial Blood Glucose Arterial Blood Ionized Calcium Urine WBC (Auto) Coronavirus (PCR) SARS-CoV-2 IgG Ab Crossmatch 08/07/20 08/07/20 08/08/20 16:38 21:30 07:40 WBC RBC Hgb Hct MCV MCH MCHC RDW Lymph % (Auto) [place] % (Auto) Lymph # (Auto) [place] # (Auto) Baso # (Auto) Seg Neutrophils % Seg Neuts % (Manual) Lymphocytes % (Manual) Nucleated RBC % Seg Neutrophils # Seg Neutrophils # Man Lymphocytes # (Manual) Monocytes # (Manual) Eosinophils # (Manual) PT INR APTT D-Dimer Heparin Anti-Xa Level ABG pH POC ABG pCO2 POC ABG pO2 ABG pO2 ABG HCO3 ABG O2 Saturation ABG Base Excess ABG Hemoglobin ABG Oxyhemoglobin ABG Sodium ABG Potassium ABG Chloride ABG Glucose Oxyhemoglobin Carboxyhemoglobin Sodium Potassium Chloride Carbon Dioxide BUN Creatinine Glucose POC Glucose 119 H 129 H 115 H Lactic Acid Calcium Magnesium Ferritin Total Bilirubin Direct Bilirubin AST ALT Alkaline Phosphatase Lactate Dehydrogenase C-Reactive Protein Total Protein Albumin Triglycerides Lipase Arterial Blood Glucose Arterial Blood Ionized Calcium Urine WBC (Auto) Coronavirus (PCR) SARS-CoV-2 IgG Ab Crossmatch 08/08/20 11:31 WBC RBC Hgb Hct MCV MCH MCHC RDW Lymph % (Auto) [place] % (Auto) Lymph # (Auto) [place] # (Auto) Baso # (Auto) Seg Neutrophils % Seg Neuts % (Manual) Lymphocytes % (Manual) Nucleated RBC % Seg Neutrophils # Seg Neutrophils # Man Lymphocytes # (Manual) Monocytes # (Manual) Eosinophils # (Manual) PT INR APTT D-Dimer Heparin Anti-Xa Level ABG pH POC ABG pCO2 POC ABG pO2 ABG pO2 ABG HCO3 ABG O2 Saturation ABG Base Excess ABG Hemoglobin ABG Oxyhemoglobin ABG Sodium ABG Potassium ABG Chloride ABG Glucose Oxyhemoglobin Carboxyhemoglobin Sodium Potassium Chloride Carbon Dioxide BUN Creatinine Glucose POC Glucose 117 H Lactic Acid Calcium Magnesium Ferritin Total Bilirubin Direct Bilirubin AST ALT Alkaline Phosphatase Lactate Dehydrogenase C-Reactive Protein Total Protein Albumin Triglycerides Lipase Arterial Blood Glucose Arterial Blood Ionized Calcium Urine WBC (Auto) Coronavirus (PCR) SARS-CoV-2 IgG Ab Crossmatch Allied health notes reviewed: nursing
[2020-08-08] MEDS: ENOXAPARIN 40 MG/0.4 ML INJ SUB-Q SCH (22:24)
--- NOTE | 2020-08-09 08:31 | Progress Note ---
Assessment and Plan Assessment and plan: Positive COVID-19 test; 05/10/2020 Negative COVID-19 test; 06/30/2020 --Severe COVID-19 bilateral pneumonia Coronavirus protocol: Completed steroids and remdesivir therapy, isolation precautions, Received management per COVID-19 protocol Repeat ivory PCR test negative on 06/30/2020 Isolation discontinued --Acute hypoxemic resp failure; on 4 L NC saturating well Oxygen titrated to 3 to 4 L, Pulmonary following Inpatient rehab has accepted for rehab therapy Pending COVID-19 test --Pneumothorax status post right chest tube Chest tube removed 07/23/2020 Post removal chest x-ray no pneumothorax Patient is requiring 3 to 4 L nasal cannula --Severe hypokalemia; resolved --Sinus tachycardia: Significantly improved, Supportive care --Elevated D-dimers; Patient had CTA chest ; negative for PE, patient already had lower extremity venous Doppler which was negative for DVT We will discontinue empiric therapeutic Lovenox, and change to DVT prophylaxis dose 40 mg subcu daily --Pseudomonas bacteremia; ID following, completed cefepime Monitor off antibiotics --Severe sepsis/septic shock, monitor off pressors Completed cefepime, monitor off antibiotics -- Acute kidney injury (SEN) , likely vasomotor nephropathy Resolved, avoid nephrotoxins --Acute on chronic anemia Guaiac test positive, GI evaluated the patient Patient H&H is normal range now Hb 11.8 -- Elevated liver function tests; resolved LFTs within normal limits --Colonic distention GI evaluated colonic distention resolved recommend stool softeners -- DVT prophylaxis On therapeutic Lovenox Chest tube removed Patient on 10 L nasal cannula oxygen, wean as tolerated Elevated D-dimers, on empiric therapeutic Lovenox CTA chest negative for PE,LE DVT negative, therapeutic Lovenox DC'd Changed to prophylactic Lovenox Discharge planning per case management CM reports that IRU is evaluating the patient for placement Patient is medically stable for discharge awaiting placement 07/23/2020; patient remains on high flow oxygen, wean oxygen as tolerated, severe hypokalemia Replenish per protocol monitor levels 07/24/2020; patient had chest tube removal yesterday 07/23/2019 and, post removal chest x-ray no pneumothorax no acute abnormalities Patient feels slightly better continues to require high flow oxygen Wean as tolerated, physical and occupational therapy, DC planning 07/26/2020; patient on 3 L nasal cannula oxygen, patient feels better 07/27/2020; patient was saturating well on 3 L of nasal cannula oxygen, however today patient is on high flow oxygen 15 L Complains of some congestion, wean oxygen levels to 3-5 as tolerated Discharge planning LTAC has refused patient,Possible home with home health versus placement when medically stable 07/28/2020; continue to wean oxygen, patient is on 10 L, awaiting placement 07/29/2020; continues to be on 10 L nasal cannula oxygen, wean as tolerated Patient is on empiric therapeutic dose Lovenox, due to elevated D-dimers Patient is stable for CTA chest today, follow the report and adjust Lovenox as needed DC planning per case management, with pending placement 07/30/2020; patient feels slightly better, oxygen reduced to 8 L of nasal cannula Will check PT OT, pending placement 07/31/2020 Patient on 8 L of nasal cannula oxygen 08/03/2020; patient's oxygen requirement has come down to 3-4 and half liters nasal cannula Will try to wean oxygen as tolerated, respiratory therapist assisting to reach the goal Possible discharge home in 1 to 2 days if stable Plan of care reviewed with the patient and his nurse 08/04/2020; patient is requiring 3 to 4 L nasal cannula oxygen, case management to set up home oxygen Patient is hemodynamically and clinically stable for discharge, pending placement [facility] And of care reviewed with the patient and his nurse as well as the case management 08/05/2020 ; COVID-19 test requested , patient is hemodynamically and clinically stable for discharge Patient is requiring 4 L of nasal cannula oxygen . medically stable for discharge 08/06/2020; patient is hemodynamically and clinically stable for discharge and transfer to IRU unit today Pre-discharge COVID-19 test is negative, pending insurance authorization 08/07/20; patient is accepted by inpatient rehab unit for admission, pending insurance authorization Stable for discharge 08/08/2020; patient is stable for discharge to inpatient rehab unit, pending insurance approval 08/09/2020; case advocate reports that insurance has not approved inpatient rehab placement for this patient Will evaluate for home oxygen, set up home oxygen if eligible, and plan discharge home with home health when patient is hemodynamically stable History Interval history: I have seen and examined the patient at the bedside this morning Patient feels slightly better anxious to be transferred to IRU Pending insurance approval Requiring 4 to 5 L of nasal cannula oxygen Mild distress Vital signs noted Hospitalist Physical - Constitutional Vitals: Temp Pulse Resp BP Pulse Ox 98.0 F 100 H 20 126/75 97 08/09/20 04:41 08/09/20 04:41 08/09/20 04:41 08/09/20 04:41 08/09/20 04:41 General appearance: Present: no acute distress, well-nourished - EENT Eyes: Present: PERRL, EOM intact - Neck Neck: Present: supple, normal ROM - Respiratory Respiratory effort: normal Respiratory: bilateral: diminished, rhonchi, negative: rales, wheezing - Cardiovascular Rhythm: regular Heart Sounds: Present: S1 & S2 - Extremities Extremities: no ischemia, No edema - Abdominal General gastrointestinal: soft, non-tender, non-distended, normal bowel sounds - Integumentary Integumentary: Present: clear, warm - Psychiatric Psychiatric: cooperative - Neurologic Neurologic: moves all extremities HEART Score - HEART Score Troponin: Troponin T 0.015 ng/mL (0.00-0.029) 07/07/20 10:00 Results - Labs CBC & Chem 7: 08/02/20 05:55 08/03/20 05:18 Labs: Laboratory Last Values WBC 12.4 K/mm3 (4.5-11.0) H 08/02/20 05:55 RBC 3.85 M/mm3 (3.65-5.03) 08/02/20 05:55 Hgb 12.3 gm/dl (11.8-15.2) 08/02/20 05:55 Hct 37.9 % (35.5-45.6) 08/02/20 05:55 MCV 99 fl (84-94) H 08/02/20 05:55 MCH 32 pg (28-32) 08/02/20 05:55 MCHC 33 % (32-34) 08/02/20 05:55 RDW 16.9 % (13.2-15.2) H 08/02/20 05:55 Plt Count 267 K/mm3 (140-440) 08/02/20 05:55 Lymph % (Auto) 18.3 % (13.4-35.0) 08/02/20 05:55 [place] % (Auto) 9.7 % (0.0-7.3) H 08/02/20 05:55 Eos % (Auto) 3.3 % (0.0-4.3) 08/02/20 05:55 Baso % (Auto) 0.4 % (0.0-1.8) 08/02/20 05:55 Lymph # (Auto) 2.3 K/mm3 (1.2-5.4) 08/02/20 05:55 [place] # (Auto) 1.2 K/mm3 (0.0-0.8) H 08/02/20 05:55 Eos # (Auto) 0.4 K/mm3 (0.0-0.4) 08/02/20 05:55 Baso # (Auto) 0.1 K/mm3 (0.0-0.1) 08/02/20 05:55 Add Manual Diff Complete 07/13/20 08:31 Total Counted 100 07/13/20 08:31 Seg Neutrophils % 68.3 % (40.0-70.0) 08/02/20 05:55 Seg Neuts % (Manual) 96.0 % (40.0-70.0) H 07/13/20 08:31 Band Neutrophils % 0 % 07/13/20 08:31 Lymphocytes % (Manual) 2.0 % (13.4-35.0) L 07/13/20 08:31 Reactive Lymphs % (Man) 0 % 07/13/20 08:31 Monocytes % (Manual) 2.0 % (0.0-7.3) 07/13/20 08:31 Eosinophils % (Manual) 0 % (0.0-4.3) 07/13/20 08:31 Basophils % (Manual) 0 % (0.0-1.8) 07/13/20 08:31 Metamyelocytes % 0 % 07/13/20 08:31 Myelocytes % 0 % 07/13/20 08:31 Promyelocytes % 0 % 07/13/20 08:31 Blast Cells % 0 % 07/13/20 08:31 Nucleated RBC % Not Reportable 07/13/20 08:31 Seg Neutrophils # 8.5 K/mm3 (1.8-7.7) H 08/02/20 05:55 Seg Neutrophils # Man 20.4 K/mm3 (1.8-7.7) H 07/13/20 08:31 Band Neutrophils # 0.0 K/mm3 07/13/20 08:31 Lymphocytes # (Manual) 0.4 K/mm3 (1.2-5.4) L 07/13/20 08:31 Abs React Lymphs (Man) 0.0 K/mm3 07/13/20 08:31 Monocytes # (Manual) 0.4 K/mm3 (0.0-0.8) 07/13/20 08:31 Eosinophils # (Manual) 0.0 K/mm3 (0.0-0.4) 07/13/20 08:31 Basophils # (Manual) 0.0 K/mm3 (0.0-0.1) 07/13/20 08:31 Metamyelocytes # 0.0 K/mm3 07/13/20 08:31 Myelocytes # 0.0 K/mm3 07/13/20 08:31 Promyelocytes # 0.0 K/mm3 07/13/20 08:31 Blast Cells # 0.0 K/mm3 07/13/20 08:31 WBC Morphology Not Reportable 07/13/20 08:31 Hypersegmented Neuts Not Reportable 07/13/20 08:31 Hyposegmented Neuts Not Reportable 07/13/20 08:31 Hypogranular Neuts Not Reportable 07/13/20 08:31 Smudge Cells Not Reportable 07/13/20 08:31 Toxic Granulation Not Reportable 07/13/20 08:31 Toxic Vacuolation Not Reportable 07/13/20 08:31 Dohle Bodies Not Reportable 07/13/20 08:31 Pelger-Huet Anomaly Not Reportable 07/13/20 08:31 Jason Rods Not Reportable 07/13/20 08:31 Platelet Estimate Consistent w auto 07/13/20 08:31 Clumped Platelets Not Reportable 07/13/20 08:31 Plt Clumps, EDTA Not Reportable 07/13/20 08:31 Large Platelets Not Reportable 07/13/20 08:31 Giant Platelets Not Reportable 07/13/20 08:31 Platelet Satelliting Not Reportable 07/13/20 08:31 Plt Morphology Comment Not Reportable 07/13/20 08:31 RBC Morphology Not Reportable 07/13/20 08:31 Dimorphic RBCs Not Reportable 07/13/20 08:31 Polychromasia Not Reportable 07/13/20 08:31 Hypochromasia Not Reportable 07/13/20 08:31 Poikilocytosis Not Reportable 07/13/20 08:31 Anisocytosis Not Reportable 07/13/20 08:31 Microcytosis Not Reportable 07/13/20 08:31 Macrocytosis Not Reportable 07/13/20 08:31 Spherocytes Not Reportable 07/13/20 08:31 Pappenheimer Bodies Not Reportable 07/13/20 08:31 Sickle Cells Not Reportable 07/13/20 08:31 Target Cells Not Reportable 07/13/20 08:31 Tear Drop Cells Not Reportable 07/13/20 08:31 Ovalocytes Not Reportable 07/13/20 08:31 Stomatocytes Few 07/13/20 08:31 Helmet Cells Not Reportable 07/13/20 08:31 [place] Bodies Not Reportable 07/13/20 08:31 [place] Rings Not Reportable 07/13/20 08:31 [place] Cells Not Reportable 07/13/20 08:31 Bite Cells Not Reportable 07/13/20 08:31 Crenated Cell Not Reportable 07/13/20 08:31 Elliptocytes Not Reportable 07/13/20 08:31 Acanthocytes (Spur) Not Reportable 07/13/20 08:31 Rouleaux Not Reportable 07/13/20 08:31 Hemoglobin C Crystals Not Reportable 07/13/20 08:31 Schistocytes Not Reportable 07/13/20 08:31 Malaria parasites Not Reportable 07/13/20 08:31 Josue Bodies Not Reportable 07/13/20 08:31 Hem Pathologist Commnt No 07/13/20 08:31 PT 11.8 Sec. (12.2-14.9) L 06/22/20 14:29 INR 0.88 (0.87-1.13) 06/22/20 14:29 APTT 23.5 Sec. (24.2-36.6) L 06/22/20 14:29 D-Dimer 1887.82 ng/mlDDU (0-234) H 05/20/20 08:16 Heparin Anti-Xa Level 0.37 U.I./ml (0.3-0.7) 07/02/20 16:08 ABG pH 7.477 (7.320-7.450) H 07/13/20 13:52 POC ABG pCO2 54.4 mmHg (32.0-48.0) H 07/13/20 13:52 ABG pCO2 53.1 mm Hg 07/08/20 Unknown POC ABG pO2 126.8 mmHg (83-108) H 07/13/20 13:52 ABG pO2 75.3 mm Hg (80.0-90.0) L 07/08/20 Unknown POC ABG HCO3 39.3 07/13/20 13:52 ABG HCO3 34.3 mmol/L (20.0-26.0) H 07/08/20 Unknown ABG O2 Saturation 96.5 % (95.0-99.0) 07/08/20 Unknown ABG O2 Content 13.5 (0.0-44) 07/08/20 Unknown POC ABG Base Excess 13.8 07/13/20 13:52 ABG Base Excess 8.7 mmol/L (-2.0-3.0) H 07/08/20 Unknown ABG Hemoglobin 11.5 (12.0-17.5) L 07/13/20 13:52 ABG Oxyhemoglobin 97.7 (94-98) 07/13/20 13:52 ABG Carboxyhemoglobin 2.4 % (0.0-5.0) 07/08/20 Unknown ABG Methemoglobin 0 (0.0-1.5) 07/13/20 13:52 ABG Sodium 136.2 mmol/L (136.0-145.0) 07/13/20 13:52 ABG Potassium 3.2 mmol/L (3.40-4.50) L 07/13/20 13:52 ABG Chloride 92.0 mmol/L (98-107) L 07/13/20 13:52 ABG Glucose 169 mg/dL (65-95) H 07/13/20 13:52 Oxyhemoglobin 93.7 % (95.0-99.0) L 07/08/20 Unknown Carboxyhemoglobin 1.2 (0.5-1.5) 07/13/20 13:52 FiO2 45 07/13/20 13:52 Sodium 142 mmol/L (137-145) 08/03/20 05:18 Potassium 3.8 mmol/L (3.6-5.0) D 08/03/20 05:18 Chloride 100.0 mmol/L (98-107) 08/03/20 05:18 Carbon Dioxide 32 mmol/L (22-30) H D 08/03/20 05:18 Anion Gap 14 mmol/L 08/03/20 05:18 BUN 14 mg/dL (9-20) 08/03/20 05:18 Creatinine 0.4 mg/dL (0.8-1.3) L 08/03/20 05:18 Estimated GFR > 60 ml/min 08/03/20 05:18 BUN/Creatinine Ratio 35 % 08/03/20 05:18 Glucose 100 mg/dL (75-100) 08/03/20 05:18 POC Glucose 132 mg/dL (70-105) H 08/08/20 21:17 Lactic Acid 0.80 mmol/L (0.7-2.0) 07/13/20 15:45 Calcium 9.3 mg/dL (8.4-10.2) 08/03/20 05:18 Phosphorus 3.10 mg/dL (2.5-4.5) 06/15/20 04:00 Magnesium 2.00 mg/dL (1.7-2.3) 07/24/20 05:05 Ferritin 1496.0 ng/mL (30.0-300.0) H 06/14/20 11:50 Total Bilirubin 0.30 mg/dL (0.1-1.2) 08/02/20 05:55 Direct Bilirubin 0.6 mg/dL (0-0.2) H 05/11/20 07:30 Indirect Bilirubin 0.9 mg/dL 05/11/20 07:30 AST 37 units/L (5-40) 08/02/20 05:55 ALT 118 units/L (7-56) H 08/02/20 05:55 Alkaline Phosphatase 88 units/L (35-129) 08/02/20 05:55 Lactate Dehydrogenase 705 units/L (91-180) H 05/20/20 08:16 Troponin T 0.015 ng/mL (0.00-0.029) 07/07/20 10:00 C-Reactive Protein 3.10 mg/dL (0.00-1.30) H 05/20/20 08:16 Total Protein 6.4 g/dL (6.3-8.2) 08/02/20 05:55 Albumin 3.3 g/dL (3.9-5) L 08/02/20 05:55 Albumin/Globulin Ratio 1.1 % 08/02/20 05:55 Triglycerides 452 mg/dL (2-149) H 06/30/20 07:00 Lipase 86 units/L (13-60) H 06/29/20 09:36 Procalcitonin 2.15 ng/mL (<0.15) 07/15/20 05:31 Arterial Blood Glucose 169 mg/dL (65-95) H 07/13/20 13:52 Arterial Blood Ionized Calcium 4.8 mg/dL (4.6-5.3) 07/13/20 13:52 Urine Color Fauzia (Yellow) 05/10/20 Unknown Urine Turbidity Clear (Clear) 05/10/20 Unknown Urine pH 5.0 (5.0-7.0) 05/10/20 Unknown Ur Specific [place] 1.019 (1.003-1.030) 05/10/20 Unknown Urine Protein 100 mg/dl mg/dL (Negative) 05/10/20 Unknown Urine Glucose (UA) Neg mg/dL (Negative) 05/10/20 Unknown Urine Ketones Neg mg/dL (Negative) 05/10/20 Unknown Urine Blood Lg (Negative) 05/10/20 Unknown Urine Nitrite Neg (Negative) 05/10/20 Unknown Urine Bilirubin Neg (Negative) 05/10/20 Unknown Urine Urobilinogen 2.0 mg/dL (<2.0) 05/10/20 Unknown Ur Leukocyte Esterase Neg (Negative) 05/10/20 Unknown Urine WBC (Auto) 11.0 /HPF (0.0-6.0) H 05/10/20 Unknown Urine RBC (Auto) 2.0 /HPF (0.0-6.0) 05/10/20 Unknown U Epithel Cells (Auto) 1.0 /HPF (0-13.0) 05/10/20 Unknown Urine Bacteria (Auto) 1+ /HPF (Negative) 05/10/20 Unknown Urine Mucus Few /HPF 05/10/20 Unknown Plasma/Serum Alcohol < 0.01 % (0-0.07) 05/09/20 14:20 Coronavirus (PCR) Negative (Negative) 08/06/20 09:36 Hepatitis A Ab Total Nonreactive (Nonreactive) 07/09/20 Unknown Hep B Core Total Ab Nonreactive (Nonreactive) 07/09/20 Unknown Hepatitis C RNA Quant See scanned result 07/09/20 Unknown SARS-CoV-2 IgG Ab Reactive (NonReactive) A 05/11/20 07:30 Blood Type B POSITIVE 06/21/20 14:18 Antibody Screen Negative 06/21/20 14:18 Crossmatch See Detail 06/21/20 14:18 - Diagnostic Impressions Diagnostic Impressions: Echocardiogram 05/20/20 13:02 Transthoracic Echocardiogram Indication: CHF BP: 97/73 Conclusions *The study quality is technically very difficult and limited. *The left ventricular chamber size, wall thickness and systolic function are within normal limits. There are no wall motion abnormalities observed. Ejection fraction is normal. *The estimated ejection fraction is 60-65%. *The pericardium appears normal. Findings Procedure Info: The study quality is technically difficult. Left Ventricle: The left ventricular chamber size, wall thickness and systolic function are within normal limits. There are no wall motion abnormalities observed. Ejection fraction is normal. The estimated ejection fraction is 60-65%. Abnormal left ventricular diastolic filling is observed, consistent with impaired relaxation. Left Atrium: The left atrium is normal in size with no visual thrombus identified. Right Ventricle: The right ventricle is not well visualized. Right Atrium: The right atrium is not well visualized. Aortic Valve: The aortic valve is trileaflet. The leaflets are thin with normal excursion. There is no aortic stenosis or regurgitation present. Mitral Valve: The mitral valve appears normal in structure and function. Tricuspid Valve: The tricuspid valve appears normal in structure and function. Unable to estimate the right ventricular systolic pressure. Pulmonic Valve: The pulmonic valve is not well visualized. There is no evidence of pulmonic regurgitation. There is no pulmonic stenosis. Pericardium: The pericardium appears normal. Pulmonary Artery: The main pulmonary artery is not well visualized. Venous: The inferior vena cava appears normal in size. Measurements Chambers 2D Name Value Normal Range IVSd (2D) 0.83 cm (0.6 - 1.1) LVPWd (2D) 0.83 cm (0.6 - 1.1) LVIDd (2D) 3.88 cm (3.7 - 5.6) LVIDs (2D) 2.46 cm (2 - 3.8) LV FS (2D) 36.52 % - EF Teichholz (2D) 66.97 % - Ao root diameter (2D) 3.47 cm (2 - 3.7) Volumes/Mass Name Value Normal Range LA ESV SP 4CH (A/L) 22.4 ml - LA ESV SP 2CH (A/L) 22.89 ml - LA ESV BP (A/L) 23.06 ml - LA ESV SP 4CH (MOD) 21.09 ml - LA ESV SP 2CH (MOD) 22.44 ml - Diastolic/Systolic Function Name Value Normal Range MV E-wave Vmax 0.48 m/sec - MV deceleration time 156.3 msec - MV A-wave Vmax 0.59 m/sec - MV E:A ratio 0.81 ratio - Aortic Valve Name Value Normal Range AV Vmax 0.97 m/sec - AV VTI 14.49 cm - AV peak gradient 3.73 mmHg - AV mean gradient 1.89 mmHg - LVOT diameter 2.09 cm - LVOT Vmax 0.72 m/sec - LVOT VTI 10.21 cm - LVOT peak gradient 2.05 mmHg - LVOT mean gradient 1.03 mmHg - SV LVOT 35.17 ml - INNA (continuity Vmax) 2.55 cm2 - INNA (continuity VTI) 2.43 cm2 - Tricuspid Valve Name Value Normal Range TV E-wave Vmax 0.37 m/sec - Pulmonic Valve/Qp:Qs Name Value Normal Range PV Vmax 0.72 m/sec - PV peak gradient 2.06 mmHg - RVOT Vmax 0.85 m/sec - RVOT VTI 9.89 cm - RVOT peak gradient 2.9 mmHg - PV acceleration time 72.31 msec - Cantor/IV: Voiding Method Urinal IV Catheter Type [Right Wrist] INT / Saline Lock IV Catheter Type [Right Upper Peripheral IV arm] IV Catheter Type [Right CVL Internal Jugular] IV Catheter Type [Right Peripheral IV Forearm] IV Catheter Type [Left Forearm INT / Saline Lock ] IV Catheter Type [Left Wrist] INT / Saline Lock IV Catheter Type [Right Hand] INT / Saline Lock IV Catheter Type [Left Hand] INT / Saline Lock IV Catheter Type [Left Peripheral IV Antecubital] Active Medications - Current Medications Current Medications: Generic Name Dose Route Start Last Admin Trade Name Freq PRN Reason Stop Dose Admin Acetaminophen 650 mg 08/07/20 10:06 Acetaminophen 325 Mg Tab PO Q4H PRN Pain, Mild (1-3) Alprazolam 0.25 mg 05/20/20 17:53 07/26/20 09:37 Alprazolam 0.25 Mg Tab PO 0.25 mg Q8H PRN Administration Anxiety Lipase/Protease/Amylase 1 each 05/22/20 13:01 Lipase 10,500/Protease 25,000/Amylase 43,750 (Units) Dr Newell FEEDTUBE PRN PRN For Clogged Feeding Tube Bisacodyl 10 mg 07/14/20 11:00 Bisacodyl 10 Mg Rect Supp [place] BID PRN Laxative Effect Enoxaparin Sodium 40 mg 07/29/20 22:00 08/08/20 22:24 Enoxaparin 40 Mg/0.4 Ml Inj SUB-Q 40 mg QDAY@2200 DESIRE Administration Protocol Folic Acid 1 mg 05/09/20 15:36 08/08/20 10:29 Folic Acid 1 Mg Tab PO 1 mg QDAY DESIRE Administration Guaifenesin 600 mg 07/19/20 23:00 08/08/20 22:25 Guaifenesin Er 600 Mg Tab PO 600 mg BID DESIRE Administration Hydrophilic Ointment 1 applic 05/21/20 20:33 Lip Therapy Vaseline TP Q2HR PRN Dry Lips Insulin Human Lispro 0 unit 07/31/20 07:30 08/08/20 22:29 Insulin Lispro 100 Unit/Ml SUB-Q Not Given ACHS [facility] Protocol Lansoprazole 30 mg 06/28/20 10:00 08/08/20 10:30 Lansoprazole 30 Mg Solutab FEEDTUBE 30 mg QDAY DESIRE Administration Metoprolol Tartrate 5 mg 07/02/20 17:17 07/08/20 14:38 Metoprolol Tartrate 5 Mg/5 Ml Inj IV 5 mg Q6HR PRN Administration Tachyarrhythmias Metoprolol Tartrate 12.5 mg 07/17/20 12:00 08/08/20 22:25 Metoprolol Tartrate 25 Mg Tab PO 12.5 mg BID DESIRE Administration Multi-Ingred Cream/Lotion/Oil/Oint 1 applic 05/21/20 20:33 Mineral Oil/Petrolatum, White Ophth Oint 3.5 Gm OU Q4HR PRN Dry Eye(s) Olanzapine 5 mg 07/17/20 22:00 08/08/20 22:25 Olanzapine 5 Mg Tab PO 5 mg QHS DESIRE Administration Phenobarbital 32.4 mg 07/04/20 22:00 08/08/20 22:25 Phenobarbital 32.4 Mg Tab PO 32.4 mg BID DESIRE Administration Prednisone 2.5 mg 08/07/20 10:00 08/08/20 10:37 Prednisone 5 Mg Tab PO 08/09/20 10:01 2.5 mg QDAY DESIRE Administration Pseudoephedrine/Acetam/Chlorphenir 10 ml 08/07/20 11:12 Guaifenesin/Codeine 100-10mg Oral Liqd 5 Ml PO Q4H PRN Cough Quetiapine Fumarate 200 mg 07/16/20 10:00 08/08/20 10:28 Quetiapine 200 Mg Tab PO 200 mg QAM DESIRE Administration Senna 17.2 mg 07/14/20 11:00 08/03/20 16:46 Sennosides 8.6 Mg Tab PO 8.6 mg BID PRN Administration Laxative Effect Nutrition/Malnutrition Assess - Dietary Evaluation Nutrition/Malnutrition Findings: Nutrition Notes Start: 05/17/20 14:10 Freq: Status: Active Protocol: Document 08/04/20 11:40 CECY (Rec: 08/04/20 11:45 CECY [id number]) Co-Sign 08/04/20 11:40 DANA Nutrition Notes Initial or Follow up Reassessment Current Diagnosis Decubitus(Pressure Ulcer), Sepsis,Respiratory Failure Other Pertinent Diagnosis Bilat pneu, COVID-19 (-), EtOH dependence Current Diet Regular diet Labs/Tests Cr 0.4 BG 100 POC 167 Pertinent Medications Folic Acid Prednisone Height 6 ft Weight 98.2 kg Usual Body Weight 118 kg [place] Body Weight (kg) 80.90 BMI 29.3 Weight Status Overweight Subjective/Other Information F/u intakes, ONS, and Sammy. Pt reported eating very well, drinking ONS and Sammy. Percent of energy/protein needs met: 100%/100% Burn Absent Trauma Absent GI Symptoms None Current % PO Good (75-100%) Minimum of two criteria Yes Interpretation of Weight Loss (severe) >5% in 1 month Muscle Mass Mild Depletion (non-severe) #4 Nutrition Diagnosis Food and nutrition-related knowledge deficit As Evidenced by Signs and Symptoms Pt had no questions Diagnosis Progress(for reassessment Resolved documentation) #3 Nutrition Diagnosis Malnutrition Diagnosis Progress(for reassessment Continues documentation) #2 Nutrition Diagnosis Increased nutrient needs ( specify in comment below) Diagnosis Progress(for reassessment Continues documentation) Is patient on ventilator? No Is Patient Ambulatory and/or Out of Bed No REE-([facility]-confined to bed) 2253.720 Kcal/Kg value to use for calculation 21 Approximate Energy Requirements Using 2 kcal/Kg Calculation Used for Recommendations Kcal/kg Additional Notes Protein: 106-134 g (1.2-1.5 g/ kg AdBW 89 kg) Fluid: 1ml/kcal Nutrition Intervention Change Diet Order: Continue diet Add Supplement/Snack (indicate name/kcal Ensure High Protein daily /protein ) Sammy BID Provides kCal: 350 Provides Protein (gm) 21 Goal #1 Meet at least 75% protein and energy needs via PO Goal #2 ONS tolerance Goal #3 Intake of Sammy BID Anticipated Discharge Needs: Regular, healthful diet and Sammy BID and increased protein intake until pressure ulcer is healed. Follow-Up By: 08/11/20 Additional Comments F/u intakes, ONS and Sammy tolerance/intake
[2020-08-09] MEDS: INSULIN LISPRO 100 UNIT/ML SUB-Q SCH ×3 (08:36→17:38)
[2020-08-09] MEDS: FOLIC ACID 1 MG TAB PO SCH (09:36)
[2020-08-09] MEDS: guaiFENesin ER 600 MG TAB PO SCH ×2 (09:36→22:29)
[2020-08-09] MEDS: LANSOPRAZOLE 30 MG SOLUTAB FEEDTUBE SCH (09:36)
[2020-08-09] MEDS: PHENobarbital 32.4 MG TAB PO SCH ×2 (09:36→21:35)
[2020-08-09] MEDS: predniSONE 5 MG TAB PO SCH (09:36)
[2020-08-09] MEDS: METOPROLOL TARTRATE 25 MG TAB PO SCH ×2 (09:37→21:35)
[2020-08-09] MEDS: QUEtiapine 200 MG TAB PO SCH (09:37)
--- NOTE | 2020-08-09 16:19 | XRay Report ---
CHEST 2 VIEWS INDICATION: Follow up on bilateral infiltrates.. COMPARISON: 07/24/2020 FINDINGS: Support devices: None. Heart: Within normal limits. Lungs/pleura: Bilateral lung opacities have decreased by 25-50% since 07/24/2020. No consolidation, p leural effusion or pneumothorax is identified. Additional findings: None. IMPRESSION: Mild improvement in the bilateral lung infiltrates. Signer Name: Bautista Jennings Jr, MD Signed: 08/09/2020 4:13 PM Workstation Name: [id number]
[2020-08-09] MEDS: ENOXAPARIN 40 MG/0.4 ML INJ SUB-Q SCH (21:34)
[2020-08-10] MEDS: INSULIN LISPRO 100 UNIT/ML SUB-Q SCH ×5 (05:56→22:20)
--- NOTE | 2020-08-10 10:37 | Progress Note ---
Assessment and Plan Assessment and plan: Positive COVID-19 test; 05/10/2020 Negative COVID-19 test; 06/30/2020 --Acute hypoxemic resp failure; oxygen dependent on 4 L NC, requiring intermittent BiPAP Due to COVID-19 pneumonia --Persistent sinus tachycardia: Multifactorial We will closely monitor --Severe COVID-19 bilateral pneumonia Coronavirus protocol: Completed steroids and remdesivir therapy, isolation precautions, Received management per COVID-19 protocol Repeat ivory PCR test negative on 06/30/2020 Isolation discontinued --Pneumothorax status post right chest tube Chest tube removed 07/23/2020 Post removal chest x-ray no pneumothorax Patient is requiring 3 to 4 L nasal cannula And intermittent BiPAP --Severe hypokalemia; resolved --Elevated D-dimers; Patient had CTA chest ; negative for PE, patient already had lower extremity venous Doppler which was negative for DVT We will discontinue empiric therapeutic Lovenox, and change to DVT prophylaxis dose 40 mg subcu daily --Pseudomonas bacteremia; ID following, completed cefepime Monitor off antibiotics --Severe sepsis/septic shock, monitor off pressors Completed cefepime, monitor off antibiotics -- Acute kidney injury (SEN) , likely vasomotor nephropathy Resolved, avoid nephrotoxins --Acute on chronic anemia Guaiac test positive, GI evaluated the patient Patient H&H is normal range now Hb 11.8 -- Elevated liver function tests; resolved LFTs within normal limits --Colonic distention GI evaluated colonic distention resolved recommend stool softeners -- DVT prophylaxis On therapeutic Lovenox Chest tube removed Patient on 10 L nasal cannula oxygen, wean as tolerated Elevated D-dimers, on empiric therapeutic Lovenox CTA chest negative for PE,LE DVT negative, therapeutic Lovenox DC'd Changed to prophylactic Lovenox Discharge planning per case management reports that IRU is evaluating the patient for placement Patient is medically stable for discharge awaiting placement 07/23/2020; patient remains on high flow oxygen, wean oxygen as tolerated, severe hypokalemia Replenish per protocol monitor levels 07/24/2020; patient had chest tube removal yesterday 07/23/2019 and, post removal chest x-ray no pneumothorax no acute abnormalities Patient feels slightly better continues to require high flow oxygen Wean as tolerated, physical and occupational therapy, DC planning 07/26/2020; patient on 3 L nasal cannula oxygen, patient feels better 07/27/2020; patient was saturating well on 3 L of nasal cannula oxygen, however today patient is on high flow oxygen 15 L Complains of some congestion, wean oxygen levels to 3-5 as tolerated Discharge planning LTAC has refused patient,Possible home with home health versus placement when medically stable 07/28/2020; continue to wean oxygen, patient is on 10 L, awaiting placement 07/29/2020; continues to be on 10 L nasal cannula oxygen, wean as tolerated Patient is on empiric therapeutic dose Lovenox, due to elevated D-dimers Patient is stable for CTA chest today, follow the report and adjust Lovenox as needed DC planning per case management, with pending placement 07/30/2020; patient feels slightly better, oxygen reduced to 8 L of nasal cannula Will check PT OT, pending placement 07/31/2020 :Patient on 8 L of nasal cannula oxygen 08/03/2020; patient's oxygen requirement has come down to 3-4 and half liters nasal cannula Will try to wean oxygen as tolerated, respiratory therapist assisting to reach the goal Possible discharge home in 1 to 2 days if stable Plan of care reviewed with the patient and his nurse 08/04/2020; patient is requiring 3 to 4 L nasal cannula oxygen, case management to set up home oxygen Patient is hemodynamically and clinically stable for discharge, pending placement [facility] And of care reviewed with the patient and his nurse as well as the case management 08/05/2020 ; COVID-19 test requested , patient is hemodynamically and clinically stable for discharge Patient is requiring 4 L of nasal cannula oxygen . medically stable for discharge 08/06/2020; patient is hemodynamically and clinically stable for discharge and transfer to IRU unit today Pre-discharge COVID-19 test is negative, pending insurance authorization 08/07/20; patient is accepted by inpatient rehab unit for admission, pending insurance authorization Stable for discharge 08/08/2020; patient is stable for discharge to inpatient rehab unit, pending insurance approval 08/09/2020; case investigator reports that insurance has not approved inpatient rehab placement for this patient Will evaluate for home oxygen, set up home oxygen if eligible, and plan discharge home with home health when patient is hemodynamically stable 08/10/2020; patient continues to have persistent tachycardia, and persistent hypoxia requiring 4 L of nasal cannula oxygen As well as intermittent BiPAP, continue current management History Interval history: I have seen and examined the patient at the bedside Patient's chart and medications reviewed patient continues to be hypoxic requiring 4 L of nasal cannula oxygen With intermittent BiPAP, patient has persistent tachycardia Patient looks cachectic chronically ill looking Vital signs noted Hospitalist Physical - Constitutional Vitals: Temp Pulse Resp BP Pulse Ox 98.0 F 112 H 18 122/70 97 08/10/20 08:54 08/10/20 08:54 08/10/20 08:54 08/10/20 08:54 08/10/20 08:54 General appearance: Present: no acute distress, well-nourished - EENT Eyes: Present: PERRL, EOM intact - Neck Neck: Present: supple, normal ROM - Respiratory Respiratory: bilateral: diminished, rhonchi, negative: rales, wheezing - Cardiovascular Rhythm: regular Heart Sounds: Present: S1 & S2 - Extremities Extremities: no ischemia, No edema - Abdominal General gastrointestinal: soft, non-tender, non-distended, normal bowel sounds - Integumentary Integumentary: Present: clear, warm - Psychiatric Psychiatric: appropriate mood/affect, cooperative - Neurologic Neurologic: CNII-XII intact, moves all extremities HEART Score - HEART Score Troponin: Troponin T 0.015 ng/mL (0.00-0.029) 07/07/20 10:00 Results - Labs CBC & Chem 7: 08/02/20 05:55 08/03/20 05:18 Labs: Laboratory Last Values WBC 12.4 K/mm3 (4.5-11.0) H 08/02/20 05:55 RBC 3.85 M/mm3 (3.65-5.03) 08/02/20 05:55 Hgb 12.3 gm/dl (11.8-15.2) 08/02/20 05:55 Hct 37.9 % (35.5-45.6) 08/02/20 05:55 MCV 99 fl (84-94) H 08/02/20 05:55 MCH 32 pg (28-32) 08/02/20 05:55 MCHC 33 % (32-34) 08/02/20 05:55 RDW 16.9 % (13.2-15.2) H 08/02/20 05:55 Plt Count 267 K/mm3 (140-440) 08/02/20 05:55 Lymph % (Auto) 18.3 % (13.4-35.0) 08/02/20 05:55 [place] % (Auto) 9.7 % (0.0-7.3) H 08/02/20 05:55 Eos % (Auto) 3.3 % (0.0-4.3) 08/02/20 05:55 Baso % (Auto) 0.4 % (0.0-1.8) 08/02/20 05:55 Lymph # (Auto) 2.3 K/mm3 (1.2-5.4) 08/02/20 05:55 Screven # (Auto) 1.2 K/mm3 (0.0-0.8) H 08/02/20 05:55 Eos # (Auto) 0.4 K/mm3 (0.0-0.4) 08/02/20 05:55 Baso # (Auto) 0.1 K/mm3 (0.0-0.1) 08/02/20 05:55 Add Manual Diff Complete 07/13/20 08:31 Total Counted 100 07/13/20 08:31 Seg Neutrophils % 68.3 % (40.0-70.0) 08/02/20 05:55 Seg Neuts % (Manual) 96.0 % (40.0-70.0) H 07/13/20 08:31 Band Neutrophils % 0 % 07/13/20 08:31 Lymphocytes % (Manual) 2.0 % (13.4-35.0) L 07/13/20 08:31 Reactive Lymphs % (Man) 0 % 07/13/20 08:31 Monocytes % (Manual) 2.0 % (0.0-7.3) 07/13/20 08:31 Eosinophils % (Manual) 0 % (0.0-4.3) 07/13/20 08:31 Basophils % (Manual) 0 % (0.0-1.8) 07/13/20 08:31 Metamyelocytes % 0 % 07/13/20 08:31 Myelocytes % 0 % 07/13/20 08:31 Promyelocytes % 0 % 07/13/20 08:31 Blast Cells % 0 % 07/13/20 08:31 Nucleated RBC % Not Reportable 07/13/20 08:31 Seg Neutrophils # 8.5 K/mm3 (1.8-7.7) H 08/02/20 05:55 Seg Neutrophils # Man 20.4 K/mm3 (1.8-7.7) H 07/13/20 08:31 Band Neutrophils # 0.0 K/mm3 07/13/20 08:31 Lymphocytes # (Manual) 0.4 K/mm3 (1.2-5.4) L 07/13/20 08:31 Abs React Lymphs (Man) 0.0 K/mm3 07/13/20 08:31 Monocytes # (Manual) 0.4 K/mm3 (0.0-0.8) 07/13/20 08:31 Eosinophils # (Manual) 0.0 K/mm3 (0.0-0.4) 07/13/20 08:31 Basophils # (Manual) 0.0 K/mm3 (0.0-0.1) 07/13/20 08:31 Metamyelocytes # 0.0 K/mm3 07/13/20 08:31 Myelocytes # 0.0 K/mm3 07/13/20 08:31 Promyelocytes # 0.0 K/mm3 07/13/20 08:31 Blast Cells # 0.0 K/mm3 07/13/20 08:31 WBC Morphology Not Reportable 07/13/20 08:31 Hypersegmented Neuts Not Reportable 07/13/20 08:31 Hyposegmented Neuts Not Reportable 07/13/20 08:31 Hypogranular Neuts Not Reportable 07/13/20 08:31 Smudge Cells Not Reportable 07/13/20 08:31 Toxic Granulation Not Reportable 07/13/20 08:31 Toxic Vacuolation Not Reportable 07/13/20 08:31 Dohle Bodies Not Reportable 07/13/20 08:31 Pelger-Huet Anomaly Not Reportable 07/13/20 08:31 Jason Rods Not Reportable 07/13/20 08:31 Platelet Estimate Consistent w auto 07/13/20 08:31 Clumped Platelets Not Reportable 07/13/20 08:31 Plt Clumps, EDTA Not Reportable 07/13/20 08:31 Large Platelets Not Reportable 07/13/20 08:31 Giant Platelets Not Reportable 07/13/20 08:31 Platelet Satelliting Not Reportable 07/13/20 08:31 Plt Morphology Comment Not Reportable 07/13/20 08:31 RBC Morphology Not Reportable 07/13/20 08:31 Dimorphic RBCs Not Reportable 07/13/20 08:31 Polychromasia Not Reportable 07/13/20 08:31 Hypochromasia Not Reportable 07/13/20 08:31 Poikilocytosis Not Reportable 07/13/20 08:31 Anisocytosis Not Reportable 07/13/20 08:31 Microcytosis Not Reportable 07/13/20 08:31 Macrocytosis Not Reportable 07/13/20 08:31 Spherocytes Not Reportable 07/13/20 08:31 Pappenheimer Bodies Not Reportable 07/13/20 08:31 Sickle Cells Not Reportable 07/13/20 08:31 Target Cells Not Reportable 07/13/20 08:31 Tear Drop Cells Not Reportable 07/13/20 08:31 Ovalocytes Not Reportable 07/13/20 08:31 Stomatocytes Few 07/13/20 08:31 Helmet Cells Not Reportable 07/13/20 08:31 Sinclair-Keswick Bodies Not Reportable 07/13/20 08:31 Jefferson Rings Not Reportable 07/13/20 08:31 Gunnison Cells Not Reportable 07/13/20 08:31 Bite Cells Not Reportable 07/13/20 08:31 Crenated Cell Not Reportable 07/13/20 08:31 Elliptocytes Not Reportable 07/13/20 08:31 Acanthocytes (Spur) Not Reportable 07/13/20 08:31 Rouleaux Not Reportable 07/13/20 08:31 Hemoglobin C Crystals Not Reportable 07/13/20 08:31 Schistocytes Not Reportable 07/13/20 08:31 Malaria parasites Not Reportable 07/13/20 08:31 Josue Bodies Not Reportable 07/13/20 08:31 Hem Pathologist Commnt No 07/13/20 08:31 PT 11.8 Sec. (12.2-14.9) L 06/22/20 14:29 INR 0.88 (0.87-1.13) 06/22/20 14:29 APTT 23.5 Sec. (24.2-36.6) L 06/22/20 14:29 D-Dimer 1887.82 ng/mlDDU (0-234) H 05/20/20 08:16 Heparin Anti-Xa Level 0.37 U.I./ml (0.3-0.7) 07/02/20 16:08 ABG pH 7.477 (7.320-7.450) H 07/13/20 13:52 POC ABG pCO2 54.4 mmHg (32.0-48.0) H 07/13/20 13:52 ABG pCO2 53.1 mm Hg 07/08/20 Unknown POC ABG pO2 126.8 mmHg (83-108) H 07/13/20 13:52 ABG pO2 75.3 mm Hg (80.0-90.0) L 07/08/20 Unknown POC ABG HCO3 39.3 07/13/20 13:52 ABG HCO3 34.3 mmol/L (20.0-26.0) H 07/08/20 Unknown ABG O2 Saturation 96.5 % (95.0-99.0) 07/08/20 Unknown ABG O2 Content 13.5 (0.0-44) 07/08/20 Unknown POC ABG Base Excess 13.8 07/13/20 13:52 ABG Base Excess 8.7 mmol/L (-2.0-3.0) H 07/08/20 Unknown ABG Hemoglobin 11.5 (12.0-17.5) L 07/13/20 13:52 ABG Oxyhemoglobin 97.7 (94-98) 07/13/20 13:52 ABG Carboxyhemoglobin 2.4 % (0.0-5.0) 07/08/20 Unknown ABG Methemoglobin 0 (0.0-1.5) 07/13/20 13:52 ABG Sodium 136.2 mmol/L (136.0-145.0) 07/13/20 13:52 ABG Potassium 3.2 mmol/L (3.40-4.50) L 07/13/20 13:52 ABG Chloride 92.0 mmol/L (98-107) L 07/13/20 13:52 ABG Glucose 169 mg/dL (65-95) H 07/13/20 13:52 Oxyhemoglobin 93.7 % (95.0-99.0) L 07/08/20 Unknown Carboxyhemoglobin 1.2 (0.5-1.5) 07/13/20 13:52 FiO2 45 07/13/20 13:52 Sodium 142 mmol/L (137-145) 08/03/20 05:18 Potassium 3.8 mmol/L (3.6-5.0) D 08/03/20 05:18 Chloride 100.0 mmol/L (98-107) 08/03/20 05:18 Carbon Dioxide 32 mmol/L (22-30) H D 08/03/20 05:18 Anion Gap 14 mmol/L 08/03/20 05:18 BUN 14 mg/dL (9-20) 08/03/20 05:18 Creatinine 0.4 mg/dL (0.8-1.3) L 08/03/20 05:18 Estimated GFR > 60 ml/min 08/03/20 05:18 BUN/Creatinine Ratio 35 % 08/03/20 05:18 Glucose 100 mg/dL (75-100) 08/03/20 05:18 POC Glucose 153 mg/dL (70-105) H 08/09/20 16:53 Lactic Acid 0.80 mmol/L (0.7-2.0) 07/13/20 15:45 Calcium 9.3 mg/dL (8.4-10.2) 08/03/20 05:18 Phosphorus 3.10 mg/dL (2.5-4.5) 06/15/20 04:00 Magnesium 2.00 mg/dL (1.7-2.3) 07/24/20 05:05 Ferritin 1496.0 ng/mL (30.0-300.0) H 06/14/20 11:50 Total Bilirubin 0.30 mg/dL (0.1-1.2) 08/02/20 05:55 Direct Bilirubin 0.6 mg/dL (0-0.2) H 05/11/20 07:30 Indirect Bilirubin 0.9 mg/dL 05/11/20 07:30 AST 37 units/L (5-40) 08/02/20 05:55 ALT 118 units/L (7-56) H 08/02/20 05:55 Alkaline Phosphatase 88 units/L (35-129) 08/02/20 05:55 Lactate Dehydrogenase 705 units/L (91-180) H 05/20/20 08:16 Troponin T 0.015 ng/mL (0.00-0.029) 07/07/20 10:00 C-Reactive Protein 3.10 mg/dL (0.00-1.30) H 05/20/20 08:16 Total Protein 6.4 g/dL (6.3-8.2) 08/02/20 05:55 Albumin 3.3 g/dL (3.9-5) L 08/02/20 05:55 Albumin/Globulin Ratio 1.1 % 08/02/20 05:55 Triglycerides 452 mg/dL (2-149) H 06/30/20 07:00 Lipase 86 units/L (13-60) H 06/29/20 09:36 Procalcitonin 2.15 ng/mL (<0.15) 07/15/20 05:31 Arterial Blood Glucose 169 mg/dL (65-95) H 07/13/20 13:52 Arterial Blood Ionized Calcium 4.8 mg/dL (4.6-5.3) 07/13/20 13:52 Urine Color Fauzia (Yellow) 05/10/20 Unknown Urine Turbidity Clear (Clear) 05/10/20 Unknown Urine pH 5.0 (5.0-7.0) 05/10/20 Unknown Ur Specific Harbinger 1.019 (1.003-1.030) 05/10/20 Unknown Urine Protein 100 mg/dl mg/dL (Negative) 05/10/20 Unknown Urine Glucose (UA) Neg mg/dL (Negative) 05/10/20 Unknown Urine Ketones Neg mg/dL (Negative) 05/10/20 Unknown Urine Blood Lg (Negative) 05/10/20 Unknown Urine Nitrite Neg (Negative) 05/10/20 Unknown Urine Bilirubin Neg (Negative) 05/10/20 Unknown Urine Urobilinogen 2.0 mg/dL (<2.0) 05/10/20 Unknown Ur Leukocyte Esterase Neg (Negative) 05/10/20 Unknown Urine WBC (Auto) 11.0 /HPF (0.0-6.0) H 05/10/20 Unknown Urine RBC (Auto) 2.0 /HPF (0.0-6.0) 05/10/20 Unknown U Epithel Cells (Auto) 1.0 /HPF (0-13.0) 05/10/20 Unknown Urine Bacteria (Auto) 1+ /HPF (Negative) 05/10/20 Unknown Urine Mucus Few /HPF 05/10/20 Unknown Plasma/Serum Alcohol < 0.01 % (0-0.07) 05/09/20 14:20 Coronavirus (PCR) Negative (Negative) 08/06/20 09:36 Hepatitis A Ab Total Nonreactive (Nonreactive) 07/09/20 Unknown Hep B Core Total Ab Nonreactive (Nonreactive) 07/09/20 Unknown Hepatitis C RNA Quant See scanned result 07/09/20 Unknown SARS-CoV-2 IgG Ab Reactive (NonReactive) A 05/11/20 07:30 Blood Type B POSITIVE 06/21/20 14:18 Antibody Screen Negative 06/21/20 14:18 Crossmatch See Detail 06/21/20 14:18 - Diagnostic Impressions Diagnostic Impressions: Echocardiogram 05/20/20 13:02 Transthoracic Echocardiogram Indication: CHF BP: 97/73 Conclusions *The study quality is technically very difficult and limited. *The left ventricular chamber size, wall thickness and systolic function are within normal limits. There are no wall motion abnormalities observed. Ejection fraction is normal. *The estimated ejection fraction is 60-65%. *The pericardium appears normal. Findings Procedure Info: The study quality is technically difficult. Left Ventricle: The left ventricular chamber size, wall thickness and systolic function are within normal limits. There are no wall motion abnormalities observed. Ejection fraction is normal. The estimated ejection fraction is 60-65%. Abnormal left ventricular diastolic filling is observed, consistent with impaired relaxation. Left Atrium: The left atrium is normal in size with no visual thrombus identified. Right Ventricle: The right ventricle is not well visualized. Right Atrium: The right atrium is not well visualized. Aortic Valve: The aortic valve is trileaflet. The leaflets are thin with normal excursion. There is no aortic stenosis or regurgitation present. Mitral Valve: The mitral valve appears normal in structure and function. Tricuspid Valve: The tricuspid valve appears normal in structure and function. Unable to estimate the right ventricular systolic pressure. Pulmonic Valve: The pulmonic valve is not well visualized. There is no evidence of pulmonic regurgitation. There is no pulmonic stenosis. Pericardium: The pericardium appears normal. Pulmonary Artery: The main pulmonary artery is not well visualized. Venous: The inferior vena cava appears normal in size. Measurements Chambers 2D Name Value Normal Range IVSd (2D) 0.83 cm (0.6 - 1.1) LVPWd (2D) 0.83 cm (0.6 - 1.1) LVIDd (2D) 3.88 cm (3.7 - 5.6) LVIDs (2D) 2.46 cm (2 - 3.8) LV FS (2D) 36.52 % - EF Teichholz (2D) 66.97 % - Ao root diameter (2D) 3.47 cm (2 - 3.7) Volumes/Mass Name Value Normal Range LA ESV SP 4CH (A/L) 22.4 ml - LA ESV SP 2CH (A/L) 22.89 ml - LA ESV BP (A/L) 23.06 ml - LA ESV SP 4CH (MOD) 21.09 ml - LA ESV SP 2CH (MOD) 22.44 ml - Diastolic/Systolic Function Name Value Normal Range MV E-wave Vmax 0.48 m/sec - MV deceleration time 156.3 msec - MV A-wave Vmax 0.59 m/sec - MV E:A ratio 0.81 ratio - Aortic Valve Name Value Normal Range AV Vmax 0.97 m/sec - AV VTI 14.49 cm - AV peak gradient 3.73 mmHg - AV mean gradient 1.89 mmHg - LVOT diameter 2.09 cm - LVOT Vmax 0.72 m/sec - LVOT VTI 10.21 cm - LVOT peak gradient 2.05 mmHg - LVOT mean gradient 1.03 mmHg - SV LVOT 35.17 ml - INNA (continuity Vmax) 2.55 cm2 - INNA (continuity VTI) 2.43 cm2 - Tricuspid Valve Name Value Normal Range TV E-wave Vmax 0.37 m/sec - Pulmonic Valve/Qp:Qs Name Value Normal Range PV Vmax 0.72 m/sec - PV peak gradient 2.06 mmHg - RVOT Vmax 0.85 m/sec - RVOT VTI 9.89 cm - RVOT peak gradient 2.9 mmHg - PV acceleration time 72.31 msec - Cantor/IV: Voiding Method Incontinent IV Catheter Type [Right Wrist] INT / Saline Lock IV Catheter Type [Right Upper Peripheral IV arm] IV Catheter Type [Right CVL Internal Jugular] IV Catheter Type [Right Peripheral IV Forearm] IV Catheter Type [Left Forearm INT / Saline Lock ] IV Catheter Type [Left Wrist] INT / Saline Lock IV Catheter Type [Right Hand] INT / Saline Lock IV Catheter Type [Left Hand] INT / Saline Lock IV Catheter Type [Left Peripheral IV Antecubital] Active Medications - Current Medications Current Medications: Generic Name Dose Route Start Last Admin Trade Name Freq PRN Reason Stop Dose Admin Acetaminophen 650 mg 08/07/20 10:06 Acetaminophen 325 Mg Tab PO Q4H PRN Pain, Mild (1-3) Alprazolam 0.25 mg 05/20/20 17:53 07/26/20 09:37 Alprazolam 0.25 Mg Tab PO 0.25 mg Q8H PRN Administration Anxiety Lipase/Protease/Amylase 1 each 05/22/20 13:01 Lipase 10,500/Protease 25,000/Amylase 43,750 (Units) Dr Newell FEEDTUBE PRN PRN For Clogged Feeding Tube Bisacodyl 10 mg 07/14/20 11:00 Bisacodyl 10 Mg Rect Supp CA BID PRN Laxative Effect Enoxaparin Sodium 40 mg 07/29/20 22:00 08/09/20 21:34 Enoxaparin 40 Mg/0.4 Ml Inj SUB-Q 40 mg QDAY@2200 DESIRE Administration Protocol Folic Acid 1 mg 05/09/20 15:36 08/09/20 09:36 Folic Acid 1 Mg Tab PO 1 mg QDAY DESIRE Administration Guaifenesin 600 mg 07/19/20 23:00 08/09/20 22:29 Guaifenesin Er 600 Mg Tab PO 600 mg BID DESIRE Administration Hydrophilic Ointment 1 applic 05/21/20 20:33 Lip Therapy Vaseline TP Q2HR PRN Dry Lips Insulin Human Lispro 0 unit 07/31/20 07:30 08/10/20 09:13 Insulin Lispro 100 Unit/Ml SUB-Q Not Given ACHS DESIRE Protocol Lansoprazole 30 mg 06/28/20 10:00 08/09/20 09:36 Lansoprazole 30 Mg Solutab FEEDTUBE 30 mg QDAY DESIRE Administration Metoprolol Tartrate 5 mg 07/02/20 17:17 07/08/20 14:38 Metoprolol Tartrate 5 Mg/5 Ml Inj IV 5 mg Q6HR PRN Administration Tachyarrhythmias Metoprolol Tartrate 12.5 mg 07/17/20 12:00 08/09/20 21:35 Metoprolol Tartrate 25 Mg Tab PO 12.5 mg BID DESIRE Administration Multi-Ingred Cream/Lotion/Oil/Oint 1 applic 05/21/20 20:33 Mineral Oil/Petrolatum, White Ophth Oint 3.5 Gm OU Q4HR PRN Dry Eye(s) Olanzapine 5 mg 07/17/20 22:00 08/09/20 21:35 Olanzapine 5 Mg Tab PO 5 mg QHS DESIRE Administration Phenobarbital 32.4 mg 07/04/20 22:00 08/09/20 21:35 Phenobarbital 32.4 Mg Tab PO 32.4 mg BID DESIRE Administration Pseudoephedrine/Acetam/Chlorphenir 10 ml 08/07/20 11:12 Guaifenesin/Codeine 100-10mg Oral Liqd 5 Ml PO Q4H PRN Cough Quetiapine Fumarate 200 mg 07/16/20 10:00 08/09/20 09:37 Quetiapine 200 Mg Tab PO 200 mg QAM DESIRE Administration Senna 17.2 mg 07/14/20 11:00 08/03/20 16:46 Sennosides 8.6 Mg Tab PO 8.6 mg BID PRN Administration Laxative Effect Nutrition/Malnutrition Assess - Dietary Evaluation Nutrition/Malnutrition Findings: Nutrition Notes Start: 05/17/20 14:10 Freq: Status: Active Protocol: Document 08/04/20 11:40 CECY (Rec: 08/04/20 11:45 CECY [id number]) Co-Sign 08/04/20 11:40 DANA Nutrition Notes Initial or Follow up Reassessment Current Diagnosis Decubitus(Pressure Ulcer), Sepsis,Respiratory Failure Other Pertinent Diagnosis Bilat pneu, COVID-19 (-), EtOH dependence Current Diet Regular diet Labs/Tests Cr 0.4 BG 100 POC 167 Pertinent Medications Folic Acid Prednisone Height 6 ft Weight 98.2 kg Usual Body Weight 118 kg [place] Body Weight (kg) 80.90 BMI 29.3 Weight Status Overweight Subjective/Other Information F/u intakes, ONS, and Sammy. Pt reported eating very well, drinking ONS and Sammy. Percent of energy/protein needs met: 100%/100% Burn Absent Trauma Absent GI Symptoms None Current % PO Good (75-100%) Minimum of two criteria Yes Interpretation of Weight Loss (severe) >5% in 1 month Muscle Mass Mild Depletion (non-severe) #4 Nutrition Diagnosis Food and nutrition-related knowledge deficit As Evidenced by Signs and Symptoms Pt had no questions Diagnosis Progress(for reassessment Resolved documentation) #3 Nutrition Diagnosis Malnutrition Diagnosis Progress(for reassessment Continues documentation) #2 Nutrition Diagnosis Increased nutrient needs ( specify in comment below) Diagnosis Progress(for reassessment Continues documentation) Is patient on ventilator? No Is Patient Ambulatory and/or Out of Bed No REE-([place]-confined to bed) 2253.720 Kcal/Kg value to use for calculation 21 Approximate Energy Requirements Using 2 kcal/Kg Calculation Used for Recommendations Kcal/kg Additional Notes Protein: 106-134 g (1.2-1.5 g/ kg AdBW 89 kg) Fluid: 1ml/kcal Nutrition Intervention Change Diet Order: Continue diet Add Supplement/Snack (indicate name/kcal Ensure High Protein daily /protein ) Samym BID Provides kCal: 350 Provides Protein (gm) 21 Goal #1 Meet at least 75% protein and energy needs via PO Goal #2 ONS tolerance Goal #3 Intake of Sammy BID Anticipated Discharge Needs: Regular, healthful diet and Sammy BID and increased protein intake until pressure ulcer is healed. Follow-Up By: 08/11/20 Additional Comments F/u intakes, ONS and Sammy tolerance/intake
[2020-08-10] MEDS: LANSOPRAZOLE 30 MG SOLUTAB FEEDTUBE SCH (11:09)
[2020-08-10] MEDS: QUEtiapine 200 MG TAB PO SCH (11:09)
[2020-08-10] MEDS: PHENobarbital 32.4 MG TAB PO SCH ×2 (11:09→22:19)
[2020-08-10] MEDS: METOPROLOL TARTRATE 25 MG TAB PO SCH ×2 (11:09→22:19)
[2020-08-10] MEDS: FOLIC ACID 1 MG TAB PO SCH (11:09)
[2020-08-10] MEDS: guaiFENesin ER 600 MG TAB PO SCH ×2 (11:09→22:19)
[2020-08-10] MEDS: ENOXAPARIN 40 MG/0.4 ML INJ SUB-Q SCH (22:18)
--- NOTE | 2020-08-11 08:56 | XRay Report ---
CHEST 2 VIEWS INDICATION: Follow up on pulmonary infiltrates.. COMPARISON: 08/09/2020 FINDINGS: Support devices: None. Heart: Within normal limits. Lungs/pleura: Bilateral lung opacities appear unchanged since the exam 2 days ago. No consolidation, pleural effusion or pneumothorax has developed. Additional findings: None. IMPRESSION: No significant interval change. Signer Name: Bautista Jennings Jr, MD Signed: 08/11/2020 8:52 AM Workstation Name: [id number]
[2020-08-11] MEDS: INSULIN LISPRO 100 UNIT/ML SUB-Q SCH ×4 (10:23→21:17)
[2020-08-11] MEDS: guaiFENesin ER 600 MG TAB PO SCH ×2 (11:59→22:14)
[2020-08-11] MEDS: QUEtiapine 200 MG TAB PO SCH (11:59)
[2020-08-11] MEDS: LANSOPRAZOLE 30 MG SOLUTAB FEEDTUBE SCH (11:59)
[2020-08-11] MEDS: FOLIC ACID 1 MG TAB PO SCH (11:59)
[2020-08-11] MEDS: PHENobarbital 32.4 MG TAB PO SCH ×2 (11:59→22:15)
[2020-08-11] MEDS: METOPROLOL TARTRATE 25 MG TAB PO SCH ×2 (11:59→22:15)
--- NOTE | 2020-08-11 14:35 | Progress Note ---
Assessment and Plan Patient awake and resting on 4 litres O2 and O2 saturation running 100%. No acute respiratory distress. BIPAP standby in the room. Patient afebrile and has no leukocytosis. Patients D dimer 1887. 82. Ferritin 1496. LDH 705. C reactive protein 3.1 Chest xray 05/17/20 reported Persistent diffuse patchy bilateral airspace disease. Apparent interval worsening Repeat chest xray 07/19/20 reported Bilateral pulmonary opacities persist. No pneumothorax. Patient finished course of REMDESIVIR, ceftrioxane and zithromax . Chest xray done to day 07/21/20 reported Stable diffuse mild airspace disease bilaterally. Patient finished course of cefepime. Patient has CTA of chest reported No PE. reported extensive bilateral pulmonary infiltrates. Patient is on ,and S/C Lovenox and Prevacid. Patients repeat chest xray PA and lateral 08/11/20 reported Bilateral lung opacities appear unchanged since the exam 2 days ago. No consolidation, pleural effusion or pneumothorax has developed. Patients ABGs On FIO2 50% PH 7.43 PCO2 51 PO2 85 HCO3 34 O2 saturation 99%. Based on present and previous ABgs results, Patient is candidate for home O2. - Patient Problems (1) Acute respiratory failure due to COVID-19 Current Visit: Yes Status: Acute Plan to address problem: Patient presently resting 4 litres o2. o2 saturation 100%. BIPAP stand by in the room. Convert aerosol treatments to metered dose inhalers Continue S/C Lovenox. Continue prevacid. Patient finished course of REMDESIVIR, Ceftrioxana and zithromax and cefepime and prednisone. (2) Bilateral pneumonia Current Visit: Yes Status: Acute Plan to address problem: Patient was on cefetrioxane, zithromax and cefepime. (3) Acute kidney injury (SEN) with acute tubular necrosis (ATN) Current Visit: Yes Status: Acute Plan to address problem: Management as per nephrology. (4) Alcohol dependence Current Visit: Yes Status: Acute Qualifiers: Substance use status: uncomplicated Qualified Code(s): F10.20 - Alcohol dependence, uncomplicated Plan to address problem: Management as per primary care. (5) Elevated liver function tests Current Visit: Yes Status: Acute Plan to address problem: Liver enzymes elevated either from his alcoholic abuse or from COVID 19 infec tion. Subjective Date of service: 08/11/20 Principal diagnosis: Ac hypoxemic resp failure; COVID-19; Severe Sepsis; Shaggy PNA; Alcohol Abuse Interval history: Patient awake and resting on 4 litres O2 and O2 saturation running 100%. No acute respiratory distress. BIPAP standby in the room. Patient afebrile and has no leukocytosis. Patients D dimer 1887. 82. Ferritin 1496. LDH 705. C reactive protein 3.1 Chest xray 05/17/20 reported Persistent diffuse patchy bilateral airspace disease. Apparent interval worsening Repeat chest xray 07/19/20 reported Bilateral pulmonary opacities persist. No pneumothorax. Patient finished course of REMDESIVIR, ceftrioxane and zithromax . Chest xray done to day 07/21/20 reported Stable diffuse mild airspace disease bilaterally. Patient finished course of cefepime. Patient has CTA of chest reported No PE. reported extensive bilateral pulmonary infiltrates. Patient is on ,and S/C Lovenox and Prevacid. Patients repeat chest xray PA and lateral 08/11/20 reported Bilateral lung opacities appear unchanged since the exam 2 days ago. No consolidation, pleural effusion or pneumothorax has developed. Patients ABGs On FIO2 50% PH 7.43 PCO2 51 PO2 85 HCO3 34 O2 saturation 99%. Based on present and previous ABgs results, Patient is candidate for home O2. . Objective Vital Signs - 12hr 08/11/20 08/11/20 08/11/20 04:32 09:57 10:00 Temperature 98.8 F 98.6 F Pulse Rate 104 H 108 H 103 H Respiratory 18 20 Rate Blood Pressure 125/78 108/77 O2 Sat by Pulse 100 98 Oximetry 08/11/20 08/11/20 10:40 12:46 Temperature 97.4 F L Pulse Rate 114 H Respiratory 20 Rate Blood Pressure 108/70 O2 Sat by Pulse 93 95 Oximetry Constitutional: no acute distress, alert Eyes: non-icteric ENT: oropharynx moist Neck: supple, no JVD Effort: mildly labored Ascultation: Bilateral: diminished breath sounds, rhonchi (scant bases), other (r. chest tube) Percussion: Bilateral: not dull Cardiovascular: regular rate and rhythm, other (No R/M) Gastrointestinal: normoactive bowel sounds, soft, non-tender, non-distended (protuberant) Integumentary: normal Extremities: no cyanosis, no edema, pulses normal, no ischemia or petechiae Neurologic: normal mental status, non-focal exam (non focal grossly; weak), pupils equal and round, CN II-XII normal, motor strength normal and (weak ) Psychiatric: mood appropriate, affect normal CBC and BMP: 08/02/20 05:55 08/03/20 05:18 ABG, PT/INR, D-dimer: ABG ABG pH 7.477 (7.320-7.450) H 07/13/20 13:52 POC ABG pCO2 54.4 mmHg (32.0-48.0) H 07/13/20 13:52 ABG pCO2 53.1 mm Hg 07/08/20 Unknown POC ABG pO2 126.8 mmHg (83-108) H 07/13/20 13:52 ABG pO2 75.3 mm Hg (80.0-90.0) L 07/08/20 Unknown POC ABG HCO3 39.3 07/13/20 13:52 ABG O2 Saturation 96.5 % (95.0-99.0) 07/08/20 Unknown PT/INR, D-dimer PT 11.8 Sec. (12.2-14.9) L 06/22/20 14:29 INR 0.88 (0.87-1.13) 06/22/20 14:29 D-Dimer 1887.82 ng/mlDDU (0-234) H 05/20/20 08:16 Abnormal lab findings: Abnormal Labs 05/09/20 05/09/20 05/09/20 12:59 12:59 12:59 WBC 11.8 H RBC Hgb Hct MCV 96 H MCH 34 H MCHC 35 H RDW Lymph % (Auto) 6.9 L [place] % (Auto) Lymph # (Auto) 0.8 L [place] # (Auto) Baso # (Auto) Seg Neutrophils % 87.5 H Seg Neuts % (Manual) Lymphocytes % (Manual) Nucleated RBC % Seg Neutrophils # 10.3 H Seg Neutrophils # Man Lymphocytes # (Manual) Monocytes # (Manual) Eosinophils # (Manual) PT INR APTT D-Dimer Heparin Anti-Xa Level ABG pH POC ABG pCO2 POC ABG pO2 ABG pO2 ABG HCO3 ABG O2 Saturation ABG Base Excess ABG Hemoglobin ABG Oxyhemoglobin ABG Sodium ABG Potassium ABG Chloride ABG Glucose Oxyhemoglobin Carboxyhemoglobin Sodium 130 L Potassium 3.5 L Chloride 86.4 L Carbon Dioxide BUN 33 H Creatinine 2.3 H Glucose 156 H POC Glucose Lactic Acid Calcium Magnesium Ferritin Total Bilirubin 3.40 H Direct Bilirubin 1.7 H AST 385 H ALT 134 H Alkaline Phosphatase Lactate Dehydrogenase C-Reactive Protein Total Protein Albumin 3.0 L Triglycerides Lipase Arterial Blood Glucose Arterial Blood Ionized Calcium Urine WBC (Auto) Coronavirus (PCR) SARS-CoV-2 IgG Ab Crossmatch 05/09/20 05/09/20 05/09/20 12:59 12:59 12:59 WBC RBC Hgb Hct MCV MCH MCHC RDW Lymph % (Auto) [place] % (Auto) Lymph # (Auto) [place] # (Auto) Baso # (Auto) Seg Neutrophils % Seg Neuts % (Manual) Lymphocytes % (Manual) Nucleated RBC % Seg Neutrophils # Seg Neutrophils # Man Lymphocytes # (Manual) Monocytes # (Manual) Eosinophils # (Manual) PT INR APTT D-Dimer 3242.51 H Heparin Anti-Xa Level ABG pH POC ABG pCO2 POC ABG pO2 ABG pO2 ABG HCO3 ABG O2 Saturation ABG Base Excess ABG Hemoglobin ABG Oxyhemoglobin ABG Sodium ABG Potassium ABG Chloride ABG Glucose Oxyhemoglobin Carboxyhemoglobin Sodium Potassium Chloride Carbon Dioxide BUN Creatinine Glucose 158 H POC Glucose Lactic Acid 3.50 H* Calcium Magnesium Ferritin Total Bilirubin Direct Bilirubin AST ALT Alkaline Phosphatase Lactate Dehydrogenase 2166 H C-Reactive Protein 39.00 H Total Protein Albumin Triglycerides Lipase Arterial Blood Glucose Arterial Blood Ionized Calcium Urine WBC (Auto) Coronavirus (PCR) SARS-CoV-2 IgG Ab Crossmatch 05/09/20 05/09/20 05/09/20 12:59 14:20 14:20 WBC RBC Hgb Hct MCV MCH MCHC RDW Lymph % (Auto) [place] % (Auto) Lymph # (Auto) [place] # (Auto) Baso # (Auto) Seg Neutrophils % Seg Neuts % (Manual) Lymphocytes % (Manual) Nucleated RBC % Seg Neutrophils # Seg Neutrophils # Man Lymphocytes # (Manual) Monocytes # (Manual) Eosinophils # (Manual) PT INR APTT D-Dimer 2861.78 H Heparin Anti-Xa Level ABG pH POC ABG pCO2 POC ABG pO2 ABG pO2 ABG HCO3 ABG O2 Saturation ABG Base Excess ABG Hemoglobin ABG Oxyhemoglobin ABG Sodium ABG Potassium ABG Chloride ABG Glucose Oxyhemoglobin Carboxyhemoglobin Sodium Potassium Chloride Carbon Dioxide BUN Creatinine Glucose POC Glucose Lactic Acid 2.20 H* Calcium Magnesium Ferritin 98748.0 H Total Bilirubin Direct Bilirubin AST ALT Alkaline Phosphatase Lactate Dehydrogenase C-Reactive Protein Total Protein Albumin Triglycerides Lipase Arterial Blood Glucose Arterial Blood Ionized Calcium Urine WBC (Auto) Coronavirus (PCR) SARS-CoV-2 IgG Ab Crossmatch 05/09/20 05/09/20 05/09/20 14:20 14:20 15:56 WBC RBC Hgb Hct MCV MCH MCHC RDW Lymph % (Auto) [place] % (Auto) Lymph # (Auto) [place] # (Auto) Baso # (Auto) Seg Neutrophils % Seg Neuts % (Manual) Lymphocytes % (Manual) Nucleated RBC % Seg Neutrophils # Seg Neutrophils # Man Lymphocytes # (Manual) Monocytes # (Manual) Eosinophils # (Manual) PT INR APTT D-Dimer Heparin Anti-Xa Level ABG pH POC ABG pCO2 POC ABG pO2 57.3 L ABG pO2 ABG HCO3 ABG O2 Saturation ABG Base Excess ABG Hemoglobin ABG Oxyhemoglobin 86.3 L ABG Sodium 129.9 L ABG Potassium ABG Chloride ABG Glucose 146 H Oxyhemoglobin Carboxyhemoglobin Sodium Potassium Chloride Carbon Dioxide BUN Creatinine Glucose 143 H POC Glucose Lactic Acid Calcium Magnesium Ferritin 05815.0 H Total Bilirubin Direct Bilirubin AST ALT Alkaline Phosphatase Lactate Dehydrogenase 1953 H C-Reactive Protein 33.50 H Total Protein Albumin Triglycerides Lipase Arterial Blood Glucose 146 H Arterial Blood Ionized Calcium 3.9 L Urine WBC (Auto) Coronavirus (PCR) SARS-CoV-2 IgG Ab Crossmatch 05/10/20 05/10/20 05/10/20 10:32 10:32 18:50 WBC 15.4 H RBC Hgb Hct MCV 97 H MCH 33 H MCHC RDW 13.1 L Lymph % (Auto) [place] % (Auto) Lymph # (Auto) [place] # (Auto) Baso # (Auto) Seg Neutrophils % Seg Neuts % (Manual) 89.0 H Lymphocytes % (Manual) 8.0 L Nucleated RBC % Seg Neutrophils # Seg Neutrophils # Man 13.7 H Lymphocytes # (Manual) Monocytes # (Manual) Eosinophils # (Manual) PT INR APTT D-Dimer Heparin Anti-Xa Level ABG pH POC ABG pCO2 POC ABG pO2 ABG pO2 ABG HCO3 ABG O2 Saturation ABG Base Excess ABG Hemoglobin ABG Oxyhemoglobin ABG Sodium ABG Potassium ABG Chloride ABG Glucose Oxyhemoglobin Carboxyhemoglobin Sodium 136 L Potassium Chloride 97.4 L Carbon Dioxide BUN 37 H Creatinine 1.7 H Glucose 209 H POC Glucose Lactic Acid Calcium Magnesium Ferritin > 2000.0 H Total Bilirubin Direct Bilirubin AST ALT Alkaline Phosphatase Lactate Dehydrogenase C-Reactive Protein Total Protein Albumin Triglycerides Lipase Arterial Blood Glucose Arterial Blood Ionized Calcium Urine WBC (Auto) Coronavirus (PCR) SARS-CoV-2 IgG Ab Crossmatch 05/10/20 05/10/20 05/10/20 18:50 19:00 Unknown WBC RBC Hgb Hct MCV MCH MCHC RDW Lymph % (Auto) [place] % (Auto) Lymph # (Auto) [place] # (Auto) Baso # (Auto) Seg Neutrophils % Seg Neuts % (Manual) Lymphocytes % (Manual) Nucleated RBC % Seg Neutrophils # Seg Neutrophils # Man Lymphocytes # (Manual) Monocytes # (Manual) Eosinophils # (Manual) PT INR APTT D-Dimer > 28957 H Heparin Anti-Xa Level ABG pH POC ABG pCO2 POC ABG pO2 ABG pO2 ABG HCO3 ABG O2 Saturation ABG Base Excess ABG Hemoglobin ABG Oxyhemoglobin ABG Sodium ABG Potassium ABG Chloride ABG Glucose Oxyhemoglobin Carboxyhemoglobin Sodium Potassium Chloride Carbon Dioxide BUN Creatinine Glucose POC Glucose Lactic Acid Calcium Magnesium Ferritin Total Bilirubin Direct Bilirubin AST ALT Alkaline Phosphatase Lactate Dehydrogenase 1879 H C-Reactive Protein 24.80 H Total Protein Albumin Triglycerides Lipase Arterial Blood Glucose Arterial Blood Ionized Calcium Urine WBC (Auto) 11.0 H Coronavirus (PCR) SARS-CoV-2 IgG Ab Crossmatch 05/10/20 05/11/20 05/11/20 Unknown 07:30 07:30 WBC RBC Hgb Hct MCV MCH MCHC RDW Lymph % (Auto) [place] % (Auto) Lymph # (Auto) [place] # (Auto) Baso # (Auto) Seg Neutrophils % Seg Neuts % (Manual) Lymphocytes % (Manual) Nucleated RBC % Seg Neutrophils # Seg Neutrophils # Man Lymphocytes # (Manual) Monocytes # (Manual) Eosinophils # (Manual) PT INR APTT D-Dimer > 2000 H Heparin Anti-Xa Level ABG pH POC ABG pCO2 POC ABG pO2 ABG pO2 ABG HCO3 ABG O2 Saturation ABG Base Excess ABG Hemoglobin ABG Oxyhemoglobin ABG Sodium ABG Potassium ABG Chloride ABG Glucose Oxyhemoglobin Carboxyhemoglobin Sodium Potassium Chloride 96.3 L Carbon Dioxide BUN 36 H Creatinine Glucose 161 H POC Glucose Lactic Acid Calcium 8.3 L Magnesium Ferritin Total Bilirubin 1.50 H Direct Bilirubin 0.6 H AST 178 H ALT 111 H Alkaline Phosphatase Lactate Dehydrogenase C-Reactive Protein Total Protein Albumin 3.0 L Triglycerides Lipase Arterial Blood Glucose Arterial Blood Ionized Calcium Urine WBC (Auto) Coronavirus (PCR) Positive A SARS-CoV-2 IgG Ab Crossmatch 05/11/20 05/11/20 05/11/20 07:30 07:30 07:30 WBC RBC Hgb Hct MCV MCH MCHC RDW Lymph % (Auto) [place] % (Auto) Lymph # (Auto) [place] # (Auto) Baso # (Auto) Seg Neutrophils % Seg Neuts % (Manual) Lymphocytes % (Manual) Nucleated RBC % Seg Neutrophils # Seg Neutrophils # Man Lymphocytes # (Manual) Monocytes # (Manual) Eosinophils # (Manual) PT INR APTT D-Dimer Heparin Anti-Xa Level ABG pH POC ABG pCO2 POC ABG pO2 ABG pO2 ABG HCO3 ABG O2 Saturation ABG Base Excess ABG Hemoglobin ABG Oxyhemoglobin ABG Sodium ABG Potassium ABG Chloride ABG Glucose Oxyhemoglobin Carboxyhemoglobin Sodium Potassium Chloride Carbon Dioxide BUN Creatinine Glucose POC Glucose Lactic Acid Calcium Magnesium Ferritin 00988.0 H Total Bilirubin Direct Bilirubin AST ALT Alkaline Phosphatase Lactate Dehydrogenase 1523 H C-Reactive Protein 12.90 H Total Protein Albumin Triglycerides Lipase Arterial Blood Glucose Arterial Blood Ionized Calcium Urine WBC (Auto) Coronavirus (PCR) SARS-CoV-2 IgG Ab Reactive A Crossmatch 05/13/20 05/13/20 05/15/20 05:20 05:20 08:15 WBC RBC Hgb Hct MCV MCH MCHC RDW Lymph % (Auto) [place] % (Auto) Lymph # (Auto) [place] # (Auto) Baso # (Auto) Seg Neutrophils % Seg Neuts % (Manual) Lymphocytes % (Manual) Nucleated RBC % Seg Neutrophils # Seg Neutrophils # Man Lymphocytes # (Manual) Monocytes # (Manual) Eosinophils # (Manual) PT INR APTT D-Dimer > 43334 H 5318.28 H Heparin Anti-Xa Level ABG pH POC ABG pCO2 POC ABG pO2 ABG pO2 ABG HCO3 ABG O2 Saturation ABG Base Excess ABG Hemoglobin ABG Oxyhemoglobin ABG Sodium ABG Potassium ABG Chloride ABG Glucose Oxyhemoglobin Carboxyhemoglobin Sodium Potassium Chloride Carbon Dioxide 32 H BUN 30 H Creatinine Glucose 156 H POC Glucose Lactic Acid Calcium Magnesium 2.60 H Ferritin Total Bilirubin 1.40 H Direct Bilirubin AST 121 H ALT 119 H Alkaline Phosphatase Lactate Dehydrogenase 957 H C-Reactive Protein 4.00 H Total Protein Albumin 3.0 L Triglycerides Lipase Arterial Blood Glucose Arterial Blood Ionized Calcium Urine WBC (Auto) Coronavirus (PCR) SARS-CoV-2 IgG Ab Crossmatch 05/15/20 05/15/20 05/15/20 08:15 08:15 08:15 WBC 12.4 H RBC Hgb Hct MCV 98 H MCH 33 H MCHC RDW Lymph % (Auto) 9.7 L [place] % (Auto) Lymph # (Auto) [place] # (Auto) Baso # (Auto) Seg Neutrophils % 86.8 H Seg Neuts % (Manual) Lymphocytes % (Manual) Nucleated RBC % Seg Neutrophils # 10.8 H Seg Neutrophils # Man Lymphocytes # (Manual) Monocytes # (Manual) Eosinophils # (Manual) PT INR APTT D-Dimer Heparin Anti-Xa Level ABG pH POC ABG pCO2 POC ABG pO2 ABG pO2 ABG HCO3 ABG O2 Saturation ABG Base Excess ABG Hemoglobin ABG Oxyhemoglobin ABG Sodium ABG Potassium ABG Chloride ABG Glucose Oxyhemoglobin Carboxyhemoglobin Sodium Potassium Chloride 94.8 L Carbon Dioxide 32 H BUN 22 H Creatinine Glucose 115 H POC Glucose Lactic Acid Calcium 8.3 L Magnesium Ferritin 2494.0 H Total Bilirubin Direct Bilirubin AST 73 H ALT 121 H Alkaline Phosphatase Lactate Dehydrogenase 835 H C-Reactive Protein 3.40 H Total Protein 6.1 L Albumin 3.0 L Triglycerides Lipase Arterial Blood Glucose Arterial Blood Ionized Calcium Urine WBC (Auto) Coronavirus (PCR) SARS-CoV-2 IgG Ab Crossmatch 05/17/20 05/17/20 05/17/20 05:50 05:50 05:50 WBC RBC Hgb Hct MCV MCH MCHC RDW Lymph % (Auto) [place] % (Auto) Lymph # (Auto) [place] # (Auto) Baso # (Auto) Seg Neutrophils % Seg Neuts % (Manual) Lymphocytes % (Manual) Nucleated RBC % Seg Neutrophils # Seg Neutrophils # Man Lymphocytes # (Manual) Monocytes # (Manual) Eosinophils # (Manual) PT INR APTT D-Dimer 2911.42 H Heparin Anti-Xa Level ABG pH POC ABG pCO2 POC ABG pO2 ABG pO2 ABG HCO3 ABG O2 Saturation ABG Base Excess ABG Hemoglobin ABG Oxyhemoglobin ABG Sodium ABG Potassium ABG Chloride ABG Glucose Oxyhemoglobin Carboxyhemoglobin Sodium 136 L Potassium Chloride 96.0 L Carbon Dioxide 34 H BUN 22 H Creatinine Glucose 140 H POC Glucose Lactic Acid Calcium Magnesium Ferritin 2082.0 H Total Bilirubin Direct Bilirubin AST ALT 75 H Alkaline Phosphatase Lactate Dehydrogenase 601 H C-Reactive Protein 2.70 H Total Protein Albumin 2.9 L Triglycerides Lipase Arterial Blood Glucose Arterial Blood Ionized Calcium Urine WBC (Auto) Coronavirus (PCR) SARS-CoV-2 IgG Ab Crossmatch 05/17/20 05/18/20 05/20/20 05:50 12:22 08:16 WBC RBC Hgb Hct MCV 98 H MCH 33 H MCHC RDW Lymph % (Auto) 8.0 L [place] % (Auto) Lymph # (Auto) 0.8 L [place] # (Auto) Baso # (Auto) Seg Neutrophils % 89.3 H Seg Neuts % (Manual) Lymphocytes % (Manual) Nucleated RBC % Seg Neutrophils # 8.8 H Seg Neutrophils # Man Lymphocytes # (Manual) Monocytes # (Manual) Eosinophils # (Manual) PT INR APTT D-Dimer 1887.82 H Heparin Anti-Xa Level ABG pH POC ABG pCO2 POC ABG pO2 ABG pO2 ABG HCO3 ABG O2 Saturation ABG Base Excess ABG Hemoglobin ABG Oxyhemoglobin ABG Sodium ABG Potassium ABG Chloride ABG Glucose Oxyhemoglobin Carboxyhemoglobin Sodium Potassium Chloride Carbon Dioxide BUN Creatinine Glucose POC Glucose 178 H Lactic Acid Calcium Magnesium Ferritin Total Bilirubin Direct Bilirubin AST ALT Alkaline Phosphatase Lactate Dehydrogenase C-Reactive Protein Total Protein Albumin Triglycerides Lipase Arterial Blood Glucose Arterial Blood Ionized Calcium Urine WBC (Auto) Coronavirus (PCR) SARS-CoV-2 IgG Ab Crossmatch 05/20/20 05/20/20 05/21/20 08:16 08:16 21:10 WBC RBC Hgb Hct MCV MCH MCHC RDW Lymph % (Auto) [place] % (Auto) Lymph # (Auto) [place] # (Auto) Baso # (Auto) Seg Neutrophils % Seg Neuts % (Manual) Lymphocytes % (Manual) Nucleated RBC % Seg Neutrophils # Seg Neutrophils # Man Lymphocytes # (Manual) Monocytes # (Manual) Eosinophils # (Manual) PT INR APTT D-Dimer Heparin Anti-Xa Level ABG pH 7.483 H POC ABG pCO2 POC ABG pO2 ABG pO2 50.0 L ABG HCO3 27.0 H ABG O2 Saturation 86.2 L ABG Base Excess 3.7 H ABG Hemoglobin ABG Oxyhemoglobin ABG Sodium ABG Potassium ABG Chloride ABG Glucose Oxyhemoglobin 84.2 L Carboxyhemoglobin Sodium Potassium Chloride Carbon Dioxide BUN Creatinine Glucose POC Glucose Lactic Acid Calcium Magnesium Ferritin 1960.0 H Total Bilirubin Direct Bilirubin AST ALT Alkaline Phosphatase Lactate Dehydrogenase 705 H C-Reactive Protein 3.10 H Total Protein Albumin Triglycerides Lipase Arterial Blood Glucose Arterial Blood Ionized Calcium Urine WBC (Auto) Coronavirus (PCR) SARS-CoV-2 IgG Ab Crossmatch 05/22/20 05/22/20 05/22/20 04:01 07:53 07:53 WBC 19.2 H RBC Hgb Hct MCV 98 H MCH 34 H MCHC RDW Lymph % (Auto) [place] % (Auto) Lymph # (Auto) [place] # (Auto) Baso # (Auto) Seg Neutrophils % Seg Neuts % (Manual) 96.0 H Lymphocytes % (Manual) 1.0 L Nucleated RBC % Seg Neutrophils # Seg Neutrophils # Man 18.4 H Lymphocytes # (Manual) 0.2 L Monocytes # (Manual) Eosinophils # (Manual) PT INR APTT D-Dimer Heparin Anti-Xa Level ABG pH POC ABG pCO2 53.8 H POC ABG pO2 125.5 H ABG pO2 ABG HCO3 ABG O2 Saturation ABG Base Excess ABG Hemoglobin ABG Oxyhemoglobin ABG Sodium 131.8 L ABG Potassium 4.8 H ABG Chloride 94.0 L ABG Glucose 163 H Oxyhemoglobin Carboxyhemoglobin Sodium 131 L Potassium Chloride 93.4 L Carbon Dioxide BUN 40 H Creatinine Glucose 176 H POC Glucose Lactic Acid Calcium Magnesium 2.70 H Ferritin Total Bilirubin 1.80 H Direct Bilirubin AST 45 H ALT 116 H Alkaline Phosphatase 181 H Lactate Dehydrogenase C-Reactive Protein Total Protein Albumin 2.6 L Triglycerides Lipase Arterial Blood Glucose 163 H Arterial Blood Ionized Calcium 4.5 L Urine WBC (Auto) Coronavirus (PCR) SARS-CoV-2 IgG Ab Crossmatch 05/23/20 05/24/20 05/24/20 04:17 03:07 04:08 WBC RBC Hgb Hct MCV MCH MCHC RDW Lymph % (Auto) [place] % (Auto) Lymph # (Auto) [place] # (Auto) Baso # (Auto) Seg Neutrophils % Seg Neuts % (Manual) Lymphocytes % (Manual) Nucleated RBC % Seg Neutrophils # Seg Neutrophils # Man Lymphocytes # (Manual) Monocytes # (Manual) Eosinophils # (Manual) PT INR APTT D-Dimer Heparin Anti-Xa Level ABG pH 7.328 L POC ABG pCO2 POC ABG pO2 ABG pO2 72.8 L 73.4 L ABG HCO3 31.0 H 34.0 H ABG O2 Saturation 93.5 L ABG Base Excess 3.5 H 7.7 H ABG Hemoglobin 13.3 L 12.1 L ABG Oxyhemoglobin ABG Sodium ABG Potassium ABG Chloride ABG Glucose Oxyhemoglobin 91.5 L 94.3 L Carboxyhemoglobin Sodium Potassium Chloride Carbon Dioxide BUN Creatinine Glucose POC Glucose 155 H Lactic Acid Calcium Magnesium Ferritin Total Bilirubin Direct Bilirubin AST ALT Alkaline Phosphatase Lactate Dehydrogenase C-Reactive Protein Total Protein Albumin Triglycerides Lipase Arterial Blood Glucose Arterial Blood Ionized Calcium Urine WBC (Auto) Coronavirus (PCR) SARS-CoV-2 IgG Ab Crossmatch 05/24/20 05/24/20 05/24/20 09:33 12:21 17:52 WBC RBC Hgb Hct MCV MCH MCHC RDW Lymph % (Auto) [place] % (Auto) Lymph # (Auto) [place] # (Auto) Baso # (Auto) Seg Neutrophils % Seg Neuts % (Manual) Lymphocytes % (Manual) Nucleated RBC % Seg Neutrophils # Seg Neutrophils # Man Lymphocytes # (Manual) Monocytes # (Manual) Eosinophils # (Manual) PT INR APTT D-Dimer Heparin Anti-Xa Level ABG pH POC ABG pCO2 POC ABG pO2 ABG pO2 ABG HCO3 ABG O2 Saturation ABG Base Excess ABG Hemoglobin ABG Oxyhemoglobin ABG Sodium ABG Potassium ABG Chloride ABG Glucose Oxyhemoglobin Carboxyhemoglobin Sodium Potassium Chloride Carbon Dioxide 34 H D BUN 28 H Creatinine 0.7 L Glucose 168 H POC Glucose 173 H 164 H Lactic Acid Calcium Magnesium Ferritin Total Bilirubin Direct Bilirubin AST ALT Alkaline Phosphatase Lactate Dehydrogenase C-Reactive Protein Total Protein Albumin Triglycerides Lipase Arterial Blood Glucose Arterial Blood Ionized Calcium Urine WBC (Auto) Coronavirus (PCR) SARS-CoV-2 IgG Ab Crossmatch 1105/25/20 05/25/20 23:47 04:29 05:46 WBC RBC Hgb Hct MCV MCH MCHC RDW Lymph % (Auto) [place] % (Auto) Lymph # (Auto) [place] # (Auto) Baso # (Auto) Seg Neutrophils % Seg Neuts % (Manual) Lymphocytes % (Manual) Nucleated RBC % Seg Neutrophils # Seg Neutrophils # Man Lymphocytes # (Manual) Monocytes # (Manual) Eosinophils # (Manual) PT INR APTT D-Dimer Heparin Anti-Xa Level ABG pH POC ABG pCO2 68.6 H POC ABG pO2 ABG pO2 ABG HCO3 ABG O2 Saturation ABG Base Excess ABG Hemoglobin ABG Oxyhemoglobin ABG Sodium ABG Potassium 4.7 H ABG Chloride ABG Glucose 226 H Oxyhemoglobin Carboxyhemoglobin Sodium Potassium Chloride Carbon Dioxide BUN Creatinine Glucose POC Glucose 171 H 201 H Lactic Acid Calcium Magnesium Ferritin Total Bilirubin Direct Bilirubin AST ALT Alkaline Phosphatase Lactate Dehydrogenase C-Reactive Protein Total Protein Albumin Triglycerides Lipase Arterial Blood Glucose 226 H Arterial Blood Ionized Calcium Urine WBC (Auto) Coronavirus (PCR) SARS-CoV-2 IgG Ab Crossmatch 05/25/20 05/25/20 05/25/20 08:37 08:37 12:38 WBC 12.0 H RBC 3.64 L Hgb Hct MCV 99 H MCH 33 H MCHC RDW Lymph % (Auto) [place] % (Auto) Lymph # (Auto) [place] # (Auto) Baso # (Auto) Seg Neutrophils % Seg Neuts % (Manual) Lymphocytes % (Manual) Nucleated RBC % Seg Neutrophils # Seg Neutrophils # Man Lymphocytes # (Manual) Monocytes # (Manual) Eosinophils # (Manual) PT INR APTT D-Dimer Heparin Anti-Xa Level ABG pH POC ABG pCO2 POC ABG pO2 ABG pO2 ABG HCO3 ABG O2 Saturation ABG Base Excess ABG Hemoglobin ABG Oxyhemoglobin ABG Sodium ABG Potassium ABG Chloride ABG Glucose Oxyhemoglobin Carboxyhemoglobin Sodium Potassium Chloride 97.3 L Carbon Dioxide 35 H BUN 25 H Creatinine 0.7 L Glucose 191 H POC Glucose 182 H Lactic Acid Calcium Magnesium Ferritin Total Bilirubin Direct Bilirubin AST ALT Alkaline Phosphatase Lactate Dehydrogenase C-Reactive Protein Total Protein Albumin Triglycerides Lipase Arterial Blood Glucose Arterial Blood Ionized Calcium Urine WBC (Auto) Coronavirus (PCR) SARS-CoV-2 IgG Ab Crossmatch 05/25/20 05/26/20 05/26/20 18:16 00:06 04:50 WBC RBC Hgb Hct MCV MCH MCHC RDW Lymph % (Auto) [place] % (Auto) Lymph # (Auto) [place] # (Auto) Baso # (Auto) Seg Neutrophils % Seg Neuts % (Manual) Lymphocytes % (Manual) Nucleated RBC % Seg Neutrophils # Seg Neutrophils # Man Lymphocytes # (Manual) Monocytes # (Manual) Eosinophils # (Manual) PT INR APTT D-Dimer Heparin Anti-Xa Level ABG pH POC ABG pCO2 POC ABG pO2 ABG pO2 221.5 H ABG HCO3 40.4 H ABG O2 Saturation 99.3 H ABG Base Excess 12.8 H ABG Hemoglobin 10.4 L ABG Oxyhemoglobin ABG Sodium ABG Potassium ABG Chloride ABG Glucose Oxyhemoglobin Carboxyhemoglobin Sodium Potassium Chloride Carbon Dioxide BUN Creatinine Glucose POC Glucose 176 H 152 H Lactic Acid Calcium Magnesium Ferritin Total Bilirubin Direct Bilirubin AST ALT Alkaline Phosphatase Lactate Dehydrogenase C-Reactive Protein Total Protein Albumin Triglycerides Lipase Arterial Blood Glucose Arterial Blood Ionized Calcium Urine WBC (Auto) Coronavirus (PCR) SARS-CoV-2 IgG Ab Crossmatch 05/26/20 05/26/20 05/26/20 06:11 07:51 07:51 WBC 13.4 H RBC 3.64 L Hgb Hct MCV 98 H MCH 33 H MCHC RDW Lymph % (Auto) [place] % (Auto) Lymph # (Auto) [place] # (Auto) Baso # (Auto) Seg Neutrophils % Seg Neuts % (Manual) Lymphocytes % (Manual) Nucleated RBC % Seg Neutrophils # Seg Neutrophils # Man Lymphocytes # (Manual) Monocytes # (Manual) Eosinophils # (Manual) PT INR APTT D-Dimer Heparin Anti-Xa Level ABG pH POC ABG pCO2 POC ABG pO2 ABG pO2 ABG HCO3 ABG O2 Saturation ABG Base Excess ABG Hemoglobin ABG Oxyhemoglobin ABG Sodium ABG Potassium ABG Chloride ABG Glucose Oxyhemoglobin Carboxyhemoglobin Sodium Potassium Chloride 96.6 L Carbon Dioxide 39 H BUN 29 H Creatinine 0.7 L Glucose 174 H POC Glucose 165 H Lactic Acid Calcium Magnesium Ferritin Total Bilirubin Direct Bilirubin AST ALT Alkaline Phosphatase Lactate Dehydrogenase C-Reactive Protein Total Protein Albumin Triglycerides Lipase Arterial Blood Glucose Arterial Blood Ionized Calcium Urine WBC (Auto) Coronavirus (PCR) SARS-CoV-2 IgG Ab Crossmatch 05/26/20 05/27/20 05/27/20 23:23 03:43 05:29 WBC RBC Hgb Hct MCV MCH MCHC RDW Lymph % (Auto) [place] % (Auto) Lymph # (Auto) [place] # (Auto) Baso # (Auto) Seg Neutrophils % Seg Neuts % (Manual) Lymphocytes % (Manual) Nucleated RBC % Seg Neutrophils # Seg Neutrophils # Man Lymphocytes # (Manual) Monocytes # (Manual) Eosinophils # (Manual) PT INR APTT D-Dimer Heparin Anti-Xa Level ABG pH 7.480 H POC ABG pCO2 52.4 H POC ABG pO2 61.4 L ABG pO2 ABG HCO3 ABG O2 Saturation ABG Base Excess ABG Hemoglobin ABG Oxyhemoglobin ABG Sodium 134.9 L ABG Potassium ABG Chloride 95.0 L ABG Glucose 221 H Oxyhemoglobin Carboxyhemoglobin Sodium Potassium Chloride Carbon Dioxide BUN Creatinine Glucose POC Glucose 169 H 227 H Lactic Acid Calcium Magnesium Ferritin Total Bilirubin Direct Bilirubin AST ALT Alkaline Phosphatase Lactate Dehydrogenase C-Reactive Protein Total Protein Albumin Triglycerides Lipase Arterial Blood Glucose 221 H Arterial Blood Ionized Calcium 4.5 L Urine WBC (Auto) Coronavirus (PCR) SARS-CoV-2 IgG Ab Crossmatch 05/27/20 05/27/20 05/27/20 07:19 12:18 13:50 WBC RBC Hgb Hct MCV MCH MCHC RDW Lymph % (Auto) [place] % (Auto) Lymph # (Auto) [place] # (Auto) Baso # (Auto) Seg Neutrophils % Seg Neuts % (Manual) Lymphocytes % (Manual) Nucleated RBC % Seg Neutrophils # Seg Neutrophils # Man Lymphocytes # (Manual) Monocytes # (Manual) Eosinophils # (Manual) PT INR APTT D-Dimer Heparin Anti-Xa Level ABG pH POC ABG pCO2 POC ABG pO2 ABG pO2 ABG HCO3 ABG O2 Saturation ABG Base Excess ABG Hemoglobin ABG Oxyhemoglobin ABG Sodium ABG Potassium ABG Chloride ABG Glucose Oxyhemoglobin Carboxyhemoglobin Sodium Potassium Chloride Carbon Dioxide BUN Creatinine Glucose POC Glucose 114 H 148 H Lactic Acid Calcium Magnesium Ferritin Total Bilirubin Direct Bilirubin AST ALT Alkaline Phosphatase Lactate Dehydrogenase C-Reactive Protein Total Protein Albumin Triglycerides 247 H Lipase Arterial Blood Glucose Arterial Blood Ionized Calcium Urine WBC (Auto) Coronavirus (PCR) SARS-CoV-2 IgG Ab Crossmatch 05/28/20 05/28/20 05/28/20 00:13 04:16 05:22 WBC RBC Hgb Hct MCV MCH MCHC RDW Lymph % (Auto) [place] % (Auto) Lymph # (Auto) [place] # (Auto) Baso # (Auto) Seg Neutrophils % Seg Neuts % (Manual) Lymphocytes % (Manual) Nucleated RBC % Seg Neutrophils # Seg Neutrophils # Man Lymphocytes # (Manual) Monocytes # (Manual) Eosinophils # (Manual) PT INR APTT D-Dimer Heparin Anti-Xa Level ABG pH POC ABG pCO2 64.4 H POC ABG pO2 60.5 L ABG pO2 ABG HCO3 ABG O2 Saturation ABG Base Excess ABG Hemoglobin ABG Oxyhemoglobin ABG Sodium ABG Potassium ABG Chloride 95.0 L ABG Glucose 209 H Oxyhemoglobin Carboxyhemoglobin Sodium Potassium Chloride Carbon Dioxide BUN Creatinine Glucose POC Glucose 155 H 186 H Lactic Acid Calcium Magnesium Ferritin Total Bilirubin Direct Bilirubin AST ALT Alkaline Phosphatase Lactate Dehydrogenase C-Reactive Protein Total Protein Albumin Triglycerides Lipase Arterial Blood Glucose 209 H Arterial Blood Ionized Calcium Urine WBC (Auto) Coronavirus (PCR) SARS-CoV-2 IgG Ab Crossmatch 05/28/20 05/28/20 05/29/20 12:45 17:39 00:37 WBC RBC Hgb Hct MCV MCH MCHC RDW Lymph % (Auto) [place] % (Auto) Lymph # (Auto) [place] # (Auto) Baso # (Auto) Seg Neutrophils % Seg Neuts % (Manual) Lymphocytes % (Manual) Nucleated RBC % Seg Neutrophils # Seg Neutrophils # Man Lymphocytes # (Manual) Monocytes # (Manual) Eosinophils # (Manual) PT INR APTT D-Dimer Heparin Anti-Xa Level ABG pH POC ABG pCO2 POC ABG pO2 ABG pO2 ABG HCO3 ABG O2 Saturation ABG Base Excess ABG Hemoglobin ABG Oxyhemoglobin ABG Sodium ABG Potassium ABG Chloride ABG Glucose Oxyhemoglobin Carboxyhemoglobin Sodium Potassium Chloride Carbon Dioxide BUN Creatinine Glucose POC Glucose 143 H 164 H 221 H Lactic Acid Calcium Magnesium Ferritin Total Bilirubin Direct Bilirubin AST ALT Alkaline Phosphatase Lactate Dehydrogenase C-Reactive Protein Total Protein Albumin Triglycerides Lipase Arterial Blood Glucose Arterial Blood Ionized Calcium Urine WBC (Auto) Coronavirus (PCR) SARS-CoV-2 IgG Ab Crossmatch 05/29/20 05/29/20 05/29/20 04:15 05:33 12:34 WBC RBC Hgb Hct MCV MCH MCHC RDW Lymph % (Auto) [place] % (Auto) Lymph # (Auto) [place] # (Auto) Baso # (Auto) Seg Neutrophils % Seg Neuts % (Manual) Lymphocytes % (Manual) Nucleated RBC % Seg Neutrophils # Seg Neutrophils # Man Lymphocytes # (Manual) Monocytes # (Manual) Eosinophils # (Manual) PT INR APTT D-Dimer Heparin Anti-Xa Level ABG pH 7.463 H POC ABG pCO2 56.3 H POC ABG pO2 81.2 L ABG pO2 ABG HCO3 ABG O2 Saturation ABG Base Excess ABG Hemoglobin ABG Oxyhemoglobin ABG Sodium ABG Potassium ABG Chloride 96.0 L ABG Glucose 194 H Oxyhemoglobin Carboxyhemoglobin Sodium Potassium Chloride Carbon Dioxide BUN Creatinine Glucose POC Glucose 133 H 221 H Lactic Acid Calcium Magnesium Ferritin Total Bilirubin Direct Bilirubin AST ALT Alkaline Phosphatase Lactate Dehydrogenase C-Reactive Protein Total Protein Albumin Triglycerides Lipase Arterial Blood Glucose 194 H Arterial Blood Ionized Calcium 4.5 L Urine WBC (Auto) Coronavirus (PCR) SARS-CoV-2 IgG Ab Crossmatch 05/29/20 05/30/20 05/30/20 18:07 00:12 05:38 WBC RBC Hgb Hct MCV MCH MCHC RDW Lymph % (Auto) [place] % (Auto) Lymph # (Auto) [place] # (Auto) Baso # (Auto) Seg Neutrophils % Seg Neuts % (Manual) Lymphocytes % (Manual) Nucleated RBC % Seg Neutrophils # Seg Neutrophils # Man Lymphocytes # (Manual) Monocytes # (Manual) Eosinophils # (Manual) PT INR APTT D-Dimer Heparin Anti-Xa Level ABG pH POC ABG pCO2 POC ABG pO2 ABG pO2 ABG HCO3 ABG O2 Saturation ABG Base Excess ABG Hemoglobin ABG Oxyhemoglobin ABG Sodium ABG Potassium ABG Chloride ABG Glucose Oxyhemoglobin Carboxyhemoglobin Sodium Potassium Chloride Carbon Dioxide BUN Creatinine Glucose POC Glucose 162 H 190 H 208 H Lactic Acid Calcium Magnesium Ferritin Total Bilirubin Direct Bilirubin AST ALT Alkaline Phosphatase Lactate Dehydrogenase C-Reactive Protein Total Protein Albumin Triglycerides Lipase Arterial Blood Glucose Arterial Blood Ionized Calcium Urine WBC (Auto) Coronavirus (PCR) SARS-CoV-2 IgG Ab Crossmatch 05/30/20 05/30/20 05/30/20 09:30 11:35 11:54 WBC 12.4 H RBC 3.48 L Hgb 11.3 L Hct 34.6 L MCV 99 H MCH 33 H MCHC RDW Lymph % (Auto) [place] % (Auto) Lymph # (Auto) [place] # (Auto) Baso # (Auto) Seg Neutrophils % Seg Neuts % (Manual) Lymphocytes % (Manual) Nucleated RBC % Seg Neutrophils # Seg Neutrophils # Man Lymphocytes # (Manual) Monocytes # (Manual) Eosinophils # (Manual) PT INR APTT D-Dimer Heparin Anti-Xa Level ABG pH 7.455 H POC ABG pCO2 57.5 H POC ABG pO2 81.5 L ABG pO2 ABG HCO3 ABG O2 Saturation ABG Base Excess ABG Hemoglobin ABG Oxyhemoglobin ABG Sodium ABG Potassium ABG Chloride 96.0 L ABG Glucose 204 H Oxyhemoglobin Carboxyhemoglobin Sodium Potassium Chloride Carbon Dioxide BUN Creatinine Glucose POC Glucose 183 H Lactic Acid Calcium Magnesium Ferritin Total Bilirubin Direct Bilirubin AST ALT Alkaline Phosphatase Lactate Dehydrogenase C-Reactive Protein Total Protein Albumin Triglycerides Lipase Arterial Blood Glucose 204 H Arterial Blood Ionized Calcium Urine WBC (Auto) Coronavirus (PCR) SARS-CoV-2 IgG Ab Crossmatch 05/30/20 05/31/20 05/31/20 18:01 00:10 03:22 WBC RBC Hgb Hct MCV MCH MCHC RDW Lymph % (Auto) [place] % (Auto) Lymph # (Auto) [place] # (Auto) Baso # (Auto) Seg Neutrophils % Seg Neuts % (Manual) Lymphocytes % (Manual) Nucleated RBC % Seg Neutrophils # Seg Neutrophils # Man Lymphocytes # (Manual) Monocytes # (Manual) Eosinophils # (Manual) PT INR APTT D-Dimer Heparin Anti-Xa Level ABG pH POC ABG pCO2 60.4 H POC ABG pO2 71.5 L ABG pO2 ABG HCO3 ABG O2 Saturation ABG Base Excess ABG Hemoglobin ABG Oxyhemoglobin ABG Sodium ABG Potassium ABG Chloride 96.0 L ABG Glucose 169 H Oxyhemoglobin Carboxyhemoglobin Sodium Potassium Chloride Carbon Dioxide BUN Creatinine Glucose POC Glucose 184 H 135 H Lactic Acid Calcium Magnesium Ferritin Total Bilirubin Direct Bilirubin AST ALT Alkaline Phosphatase Lactate Dehydrogenase C-Reactive Protein Total Protein Albumin Triglycerides Lipase Arterial Blood Glucose 169 H Arterial Blood Ionized Calcium 4.5 L Urine WBC (Auto) Coronavirus (PCR) SARS-CoV-2 IgG Ab Crossmatch 05/31/20 05/31/20 05/31/20 05:24 11:18 14:41 WBC RBC Hgb Hct MCV MCH MCHC RDW Lymph % (Auto) [place] % (Auto) Lymph # (Auto) [place] # (Auto) Baso # (Auto) Seg Neutrophils % Seg Neuts % (Manual) Lymphocytes % (Manual) Nucleated RBC % Seg Neutrophils # Seg Neutrophils # Man Lymphocytes # (Manual) Monocytes # (Manual) Eosinophils # (Manual) PT INR APTT D-Dimer Heparin Anti-Xa Level ABG pH POC ABG pCO2 POC ABG pO2 ABG pO2 ABG HCO3 ABG O2 Saturation ABG Base Excess ABG Hemoglobin ABG Oxyhemoglobin ABG Sodium ABG Potassium ABG Chloride ABG Glucose Oxyhemoglobin Carboxyhemoglobin Sodium Potassium Chloride 96.8 L Carbon Dioxide 37 H BUN 31 H Creatinine 0.6 L Glucose 213 H POC Glucose 164 H 208 H Lactic Acid Calcium Magnesium Ferritin Total Bilirubin Direct Bilirubin AST ALT Alkaline Phosphatase Lactate Dehydrogenase C-Reactive Protein Total Protein Albumin Triglycerides Lipase Arterial Blood Glucose Arterial Blood Ionized Calcium Urine WBC (Auto) Coronavirus (PCR) SARS-CoV-2 IgG Ab Crossmatch 05/31/20 05/31/20 06/01/20 17:37 23:47 03:48 WBC RBC Hgb Hct MCV MCH MCHC RDW Lymph % (Auto) [place] % (Auto) Lymph # (Auto) [place] # (Auto) Baso # (Auto) Seg Neutrophils % Seg Neuts % (Manual) Lymphocytes % (Manual) Nucleated RBC % Seg Neutrophils # Seg Neutrophils # Man Lymphocytes # (Manual) Monocytes # (Manual) Eosinophils # (Manual) PT INR APTT D-Dimer Heparin Anti-Xa Level ABG pH POC ABG pCO2 59.7 H POC ABG pO2 73.9 L ABG pO2 ABG HCO3 ABG O2 Saturation ABG Base Excess ABG Hemoglobin ABG Oxyhemoglobin ABG Sodium ABG Potassium ABG Chloride 95.0 L ABG Glucose 256 H Oxyhemoglobin Carboxyhemoglobin Sodium Potassium Chloride Carbon Dioxide BUN Creatinine Glucose POC Glucose 168 H 178 H Lactic Acid Calcium Magnesium Ferritin Total Bilirubin Direct Bilirubin AST ALT Alkaline Phosphatase Lactate Dehydrogenase C-Reactive Protein Total Protein Albumin Triglycerides Lipase Arterial Blood Glucose 256 H Arterial Blood Ionized Calcium Urine WBC (Auto) Coronavirus (PCR) SARS-CoV-2 IgG Ab Crossmatch 06/01/20 06/01/20 06/01/20 05:01 07:47 07:47 WBC 14.4 H RBC 3.46 L Hgb 11.1 L Hct 34.3 L MCV 99 H MCH MCHC RDW Lymph % (Auto) [place] % (Auto) Lymph # (Auto) [place] # (Auto) Baso # (Auto) Seg Neutrophils % Seg Neuts % (Manual) 86.0 H Lymphocytes % (Manual) 9.0 L Nucleated RBC % Seg Neutrophils # Seg Neutrophils # Man 12.4 H Lymphocytes # (Manual) Monocytes # (Manual) Eosinophils # (Manual) PT INR APTT D-Dimer Heparin Anti-Xa Level ABG pH POC ABG pCO2 POC ABG pO2 ABG pO2 ABG HCO3 ABG O2 Saturation ABG Base Excess ABG Hemoglobin ABG Oxyhemoglobin ABG Sodium ABG Potassium ABG Chloride ABG Glucose Oxyhemoglobin Carboxyhemoglobin Sodium Potassium Chloride Carbon Dioxide BUN Creatinine Glucose POC Glucose 197 H Lactic Acid Calcium Magnesium Ferritin Total Bilirubin Direct Bilirubin AST ALT Alkaline Phosphatase Lactate Dehydrogenase C-Reactive Protein Total Protein Albumin Triglycerides 244 H Lipase Arterial Blood Glucose Arterial Blood Ionized Calcium Urine WBC (Auto) Coronavirus (PCR) SARS-CoV-2 IgG Ab Crossmatch 06/01/20 06/01/20 06/01/20 07:47 11:46 18:15 WBC RBC Hgb Hct MCV MCH MCHC RDW Lymph % (Auto) [place] % (Auto) Lymph # (Auto) [place] # (Auto) Baso # (Auto) Seg Neutrophils % Seg Neuts % (Manual) Lymphocytes % (Manual) Nucleated RBC % Seg Neutrophils # Seg Neutrophils # Man Lymphocytes # (Manual) Monocytes # (Manual) Eosinophils # (Manual) PT INR APTT D-Dimer Heparin Anti-Xa Level ABG pH POC ABG pCO2 POC ABG pO2 ABG pO2 ABG HCO3 ABG O2 Saturation ABG Base Excess ABG Hemoglobin ABG Oxyhemoglobin ABG Sodium ABG Potassium ABG Chloride ABG Glucose Oxyhemoglobin Carboxyhemoglobin Sodium Potassium Chloride 95.4 L Carbon Dioxide 35 H BUN 30 H Creatinine 0.5 L Glucose 214 H POC Glucose 181 H 221 H Lactic Acid Calcium Magnesium Ferritin Total Bilirubin Direct Bilirubin AST 54 H ALT 235 H Alkaline Phosphatase Lactate Dehydrogenase C-Reactive Protein Total Protein Albumin 2.9 L Triglycerides Lipase Arterial Blood Glucose Arterial Blood Ionized Calcium Urine WBC (Auto) Coronavirus (PCR) SARS-CoV-2 IgG Ab Crossmatch 06/01/20 06/02/20 06/02/20 23:12 04:00 05:31 WBC RBC Hgb Hct MCV MCH MCHC RDW Lymph % (Auto) [place] % (Auto) Lymph # (Auto) [place] # (Auto) Baso # (Auto) Seg Neutrophils % Seg Neuts % (Manual) Lymphocytes % (Manual) Nucleated RBC % Seg Neutrophils # Seg Neutrophils # Man Lymphocytes # (Manual) Monocytes # (Manual) Eosinophils # (Manual) PT INR APTT D-Dimer Heparin Anti-Xa Level ABG pH 7.465 H POC ABG pCO2 POC ABG pO2 ABG pO2 203.4 H ABG HCO3 41.2 H ABG O2 Saturation 99.3 H ABG Base Excess 15.1 H ABG Hemoglobin 11.5 L ABG Oxyhemoglobin ABG Sodium ABG Potassium ABG Chloride ABG Glucose Oxyhemoglobin Carboxyhemoglobin Sodium Potassium Chloride Carbon Dioxide BUN Creatinine Glucose POC Glucose 197 H 184 H Lactic Acid Calcium Magnesium Ferritin Total Bilirubin Direct Bilirubin AST ALT Alkaline Phosphatase Lactate Dehydrogenase C-Reactive Protein Total Protein Albumin Triglycerides Lipase Arterial Blood Glucose Arterial Blood Ionized Calcium Urine WBC (Auto) Coronavirus (PCR) SARS-CoV-2 IgG Ab Crossmatch 06/02/20 06/02/20 06/02/20 11:49 18:06 23:00 WBC RBC Hgb Hct MCV MCH MCHC RDW Lymph % (Auto) [place] % (Auto) Lymph # (Auto) [place] # (Auto) Baso # (Auto) Seg Neutrophils % Seg Neuts % (Manual) Lymphocytes % (Manual) Nucleated RBC % Seg Neutrophils # Seg Neutrophils # Man Lymphocytes # (Manual) Monocytes # (Manual) Eosinophils # (Manual) PT INR APTT D-Dimer Heparin Anti-Xa Level ABG pH POC ABG pCO2 POC ABG pO2 ABG pO2 ABG HCO3 ABG O2 Saturation ABG Base Excess ABG Hemoglobin ABG Oxyhemoglobin ABG Sodium ABG Potassium ABG Chloride ABG Glucose Oxyhemoglobin Carboxyhemoglobin Sodium Potassium Chloride Carbon Dioxide BUN Creatinine Glucose POC Glucose 195 H 177 H 228 H Lactic Acid Calcium Magnesium Ferritin Total Bilirubin Direct Bilirubin AST ALT Alkaline Phosphatase Lactate Dehydrogenase C-Reactive Protein Total Protein Albumin Triglycerides Lipase Arterial Blood Glucose Arterial Blood Ionized Calcium Urine WBC (Auto) Coronavirus (PCR) SARS-CoV-2 IgG Ab Crossmatch 06/03/20 06/03/20 06/03/20 03:58 05:19 12:21 WBC RBC Hgb Hct MCV MCH MCHC RDW Lymph % (Auto) [place] % (Auto) Lymph # (Auto) [place] # (Auto) Baso # (Auto) Seg Neutrophils % Seg Neuts % (Manual) Lymphocytes % (Manual) Nucleated RBC % Seg Neutrophils # Seg Neutrophils # Man Lymphocytes # (Manual) Monocytes # (Manual) Eosinophils # (Manual) PT INR APTT D-Dimer Heparin Anti-Xa Level ABG pH POC ABG pCO2 POC ABG pO2 ABG pO2 171.0 H ABG HCO3 42.8 H ABG O2 Saturation ABG Base Excess 15.6 H ABG Hemoglobin 12.3 L ABG Oxyhemoglobin ABG Sodium ABG Potassium ABG Chloride ABG Glucose Oxyhemoglobin Carboxyhemoglobin Sodium Potassium Chloride Carbon Dioxide BUN Creatinine Glucose POC Glucose 122 H 207 H Lactic Acid Calcium Magnesium Ferritin Total Bilirubin Direct Bilirubin AST ALT Alkaline Phosphatase Lactate Dehydrogenase C-Reactive Protein Total Protein Albumin Triglycerides Lipase Arterial Blood Glucose Arterial Blood Ionized Calcium Urine WBC (Auto) Coronavirus (PCR) SARS-CoV-2 IgG Ab Crossmatch 06/03/20 06/03/20 06/04/20 17:27 23:50 03:55 WBC RBC Hgb Hct MCV MCH MCHC RDW Lymph % (Auto) [place] % (Auto) Lymph # (Auto) [place] # (Auto) Baso # (Auto) Seg Neutrophils % Seg Neuts % (Manual) Lymphocytes % (Manual) Nucleated RBC % Seg Neutrophils # Seg Neutrophils # Man Lymphocytes # (Manual) Monocytes # (Manual) Eosinophils # (Manual) PT INR APTT D-Dimer Heparin Anti-Xa Level ABG pH POC ABG pCO2 POC ABG pO2 ABG pO2 117.2 H ABG HCO3 42.4 H ABG O2 Saturation ABG Base Excess 15.3 H ABG Hemoglobin 10.5 L ABG Oxyhemoglobin ABG Sodium ABG Potassium ABG Chloride ABG Glucose Oxyhemoglobin Carboxyhemoglobin Sodium Potassium Chloride Carbon Dioxide BUN Creatinine Glucose POC Glucose 157 H 214 H Lactic Acid Calcium Magnesium Ferritin Total Bilirubin Direct Bilirubin AST ALT Alkaline Phosphatase Lactate Dehydrogenase C-Reactive Protein Total Protein Albumin Triglycerides Lipase Arterial Blood Glucose Arterial Blood Ionized Calcium Urine WBC (Auto) Coronavirus (PCR) SARS-CoV-2 IgG Ab Crossmatch 06/04/20 06/04/20 06/04/20 05:49 11:41 17:30 WBC RBC Hgb Hct MCV MCH MCHC RDW Lymph % (Auto) [place] % (Auto) Lymph # (Auto) [place] # (Auto) Baso # (Auto) Seg Neutrophils % Seg Neuts % (Manual) Lymphocytes % (Manual) Nucleated RBC % Seg Neutrophils # Seg Neutrophils # Man Lymphocytes # (Manual) Monocytes # (Manual) Eosinophils # (Manual) PT INR APTT D-Dimer Heparin Anti-Xa Level ABG pH POC ABG pCO2 POC ABG pO2 ABG pO2 ABG HCO3 ABG O2 Saturation ABG Base Excess ABG Hemoglobin ABG Oxyhemoglobin ABG Sodium ABG Potassium ABG Chloride ABG Glucose Oxyhemoglobin Carboxyhemoglobin Sodium Potassium Chloride Carbon Dioxide BUN Creatinine Glucose POC Glucose 149 H 233 H 156 H Lactic Acid Calcium Magnesium Ferritin Total Bilirubin Direct Bilirubin AST ALT Alkaline Phosphatase Lactate Dehydrogenase C-Reactive Protein Total Protein Albumin Triglycerides Lipase Arterial Blood Glucose Arterial Blood Ionized Calcium Urine WBC (Auto) Coronavirus (PCR) SARS-CoV-2 IgG Ab Crossmatch 06/04/20 06/04/20 06/04/20 19:01 20:53 23:41 WBC RBC 3.18 L Hgb 10.8 L Hct 31.8 L MCV 100 H MCH 34 H MCHC RDW Lymph % (Auto) [place] % (Auto) Lymph # (Auto) [place] # (Auto) Baso # (Auto) Seg Neutrophils % Seg Neuts % (Manual) 86.0 H Lymphocytes % (Manual) 10.0 L Nucleated RBC % 1.0 H Seg Neutrophils # Seg Neutrophils # Man 8.5 H Lymphocytes # (Manual) 1.0 L Monocytes # (Manual) Eosinophils # (Manual) PT INR APTT D-Dimer Heparin Anti-Xa Level ABG pH POC ABG pCO2 POC ABG pO2 ABG pO2 ABG HCO3 ABG O2 Saturation ABG Base Excess ABG Hemoglobin ABG Oxyhemoglobin ABG Sodium ABG Potassium ABG Chloride ABG Glucose Oxyhemoglobin Carboxyhemoglobin Sodium Potassium 3.4 L D Chloride 96.5 L Carbon Dioxide 41 H* BUN 27 H Creatinine 0.5 L Glucose 173 H POC Glucose 217 H Lactic Acid Calcium Magnesium Ferritin Total Bilirubin Direct Bilirubin AST ALT Alkaline Phosphatase Lactate Dehydrogenase C-Reactive Protein Total Protein Albumin Triglycerides Lipase Arterial Blood Glucose Arterial Blood Ionized Calcium Urine WBC (Auto) Coronavirus (PCR) SARS-CoV-2 IgG Ab Crossmatch 06/05/20 06/05/20 06/05/20 06:05 11:54 12:35 WBC RBC Hgb Hct MCV MCH MCHC RDW Lymph % (Auto) [place] % (Auto) Lymph # (Auto) [place] # (Auto) Baso # (Auto) Seg Neutrophils % Seg Neuts % (Manual) Lymphocytes % (Manual) Nucleated RBC % Seg Neutrophils # Seg Neutrophils # Man Lymphocytes # (Manual) Monocytes # (Manual) Eosinophils # (Manual) PT INR APTT D-Dimer Heparin Anti-Xa Level ABG pH POC ABG pCO2 POC ABG pO2 ABG pO2 127.9 H ABG HCO3 41.1 H ABG O2 Saturation ABG Base Excess 13.0 H ABG Hemoglobin 13.4 L ABG Oxyhemoglobin ABG Sodium ABG Potassium ABG Chloride ABG Glucose Oxyhemoglobin Carboxyhemoglobin Sodium Potassium Chloride Carbon Dioxide BUN Creatinine Glucose POC Glucose 137 H 211 H Lactic Acid Calcium Magnesium Ferritin Total Bilirubin Direct Bilirubin AST ALT Alkaline Phosphatase Lactate Dehydrogenase C-Reactive Protein Total Protein Albumin Triglycerides Lipase Arterial Blood Glucose Arterial Blood Ionized Calcium Urine WBC (Auto) Coronavirus (PCR) SARS-CoV-2 IgG Ab Crossmatch 06/05/20 06/05/20 06/06/20 17:03 23:49 04:42 WBC RBC Hgb Hct MCV MCH MCHC RDW Lymph % (Auto) [place] % (Auto) Lymph # (Auto) [place] # (Auto) Baso # (Auto) Seg Neutrophils % Seg Neuts % (Manual) Lymphocytes % (Manual) Nucleated RBC % Seg Neutrophils # Seg Neutrophils # Man Lymphocytes # (Manual) Monocytes # (Manual) Eosinophils # (Manual) PT INR APTT D-Dimer Heparin Anti-Xa Level ABG pH POC ABG pCO2 56.1 H POC ABG pO2 52.5 L ABG pO2 ABG HCO3 ABG O2 Saturation ABG Base Excess ABG Hemoglobin 11.7 L ABG Oxyhemoglobin ABG Sodium ABG Potassium 3.3 L ABG Chloride 95.0 L ABG Glucose 156 H Oxyhemoglobin Carboxyhemoglobin Sodium Potassium Chloride Carbon Dioxide BUN Creatinine Glucose POC Glucose 159 H 194 H Lactic Acid Calcium Magnesium Ferritin Total Bilirubin Direct Bilirubin AST ALT Alkaline Phosphatase Lactate Dehydrogenase C-Reactive Protein Total Protein Albumin Triglycerides Lipase Arterial Blood Glucose 156 H Arterial Blood Ionized Calcium Urine WBC (Auto) Coronavirus (PCR) SARS-CoV-2 IgG Ab Crossmatch 06/06/20 06/06/20 06/06/20 05:57 12:06 17:38 WBC RBC Hgb Hct MCV MCH MCHC RDW Lymph % (Auto) [place] % (Auto) Lymph # (Auto) [place] # (Auto) Baso # (Auto) Seg Neutrophils % Seg Neuts % (Manual) Lymphocytes % (Manual) Nucleated RBC % Seg Neutrophils # Seg Neutrophils # Man Lymphocytes # (Manual) Monocytes # (Manual) Eosinophils # (Manual) PT INR APTT D-Dimer Heparin Anti-Xa Level ABG pH POC ABG pCO2 POC ABG pO2 ABG pO2 ABG HCO3 ABG O2 Saturation ABG Base Excess ABG Hemoglobin ABG Oxyhemoglobin ABG Sodium ABG Potassium ABG Chloride ABG Glucose Oxyhemoglobin Carboxyhemoglobin Sodium Potassium Chloride Carbon Dioxide BUN Creatinine Glucose POC Glucose 144 H 230 H 162 H Lactic Acid Calcium Magnesium Ferritin Total Bilirubin Direct Bilirubin AST ALT Alkaline Phosphatase Lactate Dehydrogenase C-Reactive Protein Total Protein Albumin Triglycerides Lipase Arterial Blood Glucose Arterial Blood Ionized Calcium Urine WBC (Auto) Coronavirus (PCR) SARS-CoV-2 IgG Ab Crossmatch 06/06/20 06/07/20 06/07/20 23:50 04:34 06:03 WBC RBC Hgb Hct MCV MCH MCHC RDW Lymph % (Auto) [place] % (Auto) Lymph # (Auto) [place] # (Auto) Baso # (Auto) Seg Neutrophils % Seg Neuts % (Manual) Lymphocytes % (Manual) Nucleated RBC % Seg Neutrophils # Seg Neutrophils # Man Lymphocytes # (Manual) Monocytes # (Manual) Eosinophils # (Manual) PT INR APTT D-Dimer Heparin Anti-Xa Level ABG pH 7.511 H POC ABG pCO2 53.5 H POC ABG pO2 114.5 H ABG pO2 ABG HCO3 ABG O2 Saturation ABG Base Excess ABG Hemoglobin 9.4 L ABG Oxyhemoglobin ABG Sodium 134.5 L ABG Potassium ABG Chloride 94.0 L ABG Glucose 186 H Oxyhemoglobin Carboxyhemoglobin Sodium Potassium Chloride Carbon Dioxide BUN Creatinine Glucose POC Glucose 181 H 155 H Lactic Acid Calcium Magnesium Ferritin Total Bilirubin Direct Bilirubin AST ALT Alkaline Phosphatase Lactate Dehydrogenase C-Reactive Protein Total Protein Albumin Triglycerides Lipase Arterial Blood Glucose 186 H Arterial Blood Ionized Calcium 4.5 L Urine WBC (Auto) Coronavirus (PCR) SARS-CoV-2 IgG Ab Crossmatch 06/07/20 06/07/20 06/07/20 13:41 14:58 14:58 WBC RBC 2.72 L Hgb 9.3 L Hct 27.2 L MCV 100 H MCH 34 H MCHC RDW Lymph % (Auto) [place] % (Auto) Lymph # (Auto) [place] # (Auto) Baso # (Auto) Seg Neutrophils % Seg Neuts % (Manual) Lymphocytes % (Manual) Nucleated RBC % Seg Neutrophils # Seg Neutrophils # Man Lymphocytes # (Manual) Monocytes # (Manual) Eosinophils # (Manual) PT INR APTT D-Dimer Heparin Anti-Xa Level ABG pH POC ABG pCO2 POC ABG pO2 ABG pO2 ABG HCO3 ABG O2 Saturation ABG Base Excess ABG Hemoglobin ABG Oxyhemoglobin ABG Sodium ABG Potassium ABG Chloride ABG Glucose Oxyhemoglobin Carboxyhemoglobin Sodium Potassium Chloride 93.5 L Carbon Dioxide 39 H BUN 22 H Creatinine 0.4 L Glucose 188 H POC Glucose 201 H Lactic Acid Calcium Magnesium Ferritin Total Bilirubin Direct Bilirubin AST 61 H ALT 273 H Alkaline Phosphatase Lactate Dehydrogenase C-Reactive Protein Total Protein 5.9 L Albumin 2.7 L Triglycerides Lipase Arterial Blood Glucose Arterial Blood Ionized Calcium Urine WBC (Auto) Coronavirus (PCR) SARS-CoV-2 IgG Ab Crossmatch 06/07/20 06/08/20 06/08/20 23:18 05:31 12:07 WBC RBC Hgb Hct MCV MCH MCHC RDW Lymph % (Auto) [place] % (Auto) Lymph # (Auto) [place] # (Auto) Baso # (Auto) Seg Neutrophils % Seg Neuts % (Manual) Lymphocytes % (Manual) Nucleated RBC % Seg Neutrophils # Seg Neutrophils # Man Lymphocytes # (Manual) Monocytes # (Manual) Eosinophils # (Manual) PT INR APTT D-Dimer Heparin Anti-Xa Level ABG pH POC ABG pCO2 POC ABG pO2 ABG pO2 ABG HCO3 ABG O2 Saturation ABG Base Excess ABG Hemoglobin ABG Oxyhemoglobin ABG Sodium ABG Potassium ABG Chloride ABG Glucose Oxyhemoglobin Carboxyhemoglobin Sodium Potassium Chloride Carbon Dioxide BUN Creatinine Glucose POC Glucose 214 H 129 H 179 H Lactic Acid Calcium Magnesium Ferritin Total Bilirubin Direct Bilirubin AST ALT Alkaline Phosphatase Lactate Dehydrogenase C-Reactive Protein Total Protein Albumin Triglycerides Lipase Arterial Blood Glucose Arterial Blood Ionized Calcium Urine WBC (Auto) Coronavirus (PCR) SARS-CoV-2 IgG Ab Crossmatch 06/08/20 06/08/20 06/09/20 18:18 23:35 05:42 WBC RBC Hgb Hct MCV MCH MCHC RDW Lymph % (Auto) [place] % (Auto) Lymph # (Auto) [place] # (Auto) Baso # (Auto) Seg Neutrophils % Seg Neuts % (Manual) Lymphocytes % (Manual) Nucleated RBC % Seg Neutrophils # Seg Neutrophils # Man Lymphocytes # (Manual) Monocytes # (Manual) Eosinophils # (Manual) PT INR APTT D-Dimer Heparin Anti-Xa Level ABG pH POC ABG pCO2 POC ABG pO2 ABG pO2 ABG HCO3 ABG O2 Saturation ABG Base Excess ABG Hemoglobin ABG Oxyhemoglobin ABG Sodium ABG Potassium ABG Chloride ABG Glucose Oxyhemoglobin Carboxyhemoglobin Sodium Potassium Chloride Carbon Dioxide BUN Creatinine Glucose POC Glucose 172 H 177 H 137 H Lactic Acid Calcium Magnesium Ferritin Total Bilirubin Direct Bilirubin AST ALT Alkaline Phosphatase Lactate Dehydrogenase C-Reactive Protein Total Protein Albumin Triglycerides Lipase Arterial Blood Glucose Arterial Blood Ionized Calcium Urine WBC (Auto) Coronavirus (PCR) SARS-CoV-2 IgG Ab Crossmatch 06/09/20 06/09/20 06/09/20 06:20 07:55 07:55 WBC 12.4 H RBC 3.26 L Hgb 11.1 L Hct 33.4 L D MCV 102 H MCH 34 H MCHC RDW Lymph % (Auto) [place] % (Auto) Lymph # (Auto) [place] # (Auto) Baso # (Auto) Seg Neutrophils % Seg Neuts % (Manual) Lymphocytes % (Manual) Nucleated RBC % Seg Neutrophils # Seg Neutrophils # Man Lymphocytes # (Manual) Monocytes # (Manual) Eosinophils # (Manual) PT INR APTT D-Dimer Heparin Anti-Xa Level ABG pH 7.466 H POC ABG pCO2 50.7 H POC ABG pO2 53.0 L ABG pO2 ABG HCO3 ABG O2 Saturation ABG Base Excess ABG Hemoglobin ABG Oxyhemoglobin ABG Sodium ABG Potassium 2.9 L ABG Chloride 93.0 L ABG Glucose 138 H Oxyhemoglobin Carboxyhemoglobin Sodium Potassium 3.0 L Chloride 92.3 L Carbon Dioxide 37 H BUN 21 H Creatinine 0.6 L Glucose 120 H POC Glucose Lactic Acid Calcium Magnesium Ferritin Total Bilirubin Direct Bilirubin AST ALT Alkaline Phosphatase Lactate Dehydrogenase C-Reactive Protein Total Protein Albumin Triglycerides Lipase Arterial Blood Glucose 138 H Arterial Blood Ionized Calcium 4.5 L Urine WBC (Auto) Coronavirus (PCR) SARS-CoV-2 IgG Ab Crossmatch 06/09/20 06/09/20 06/10/20 11:22 18:32 04:46 WBC RBC Hgb Hct MCV MCH MCHC RDW Lymph % (Auto) [place] % (Auto) Lymph # (Auto) [place] # (Auto) Baso # (Auto) Seg Neutrophils % Seg Neuts % (Manual) Lymphocytes % (Manual) Nucleated RBC % Seg Neutrophils # Seg Neutrophils # Man Lymphocytes # (Manual) Monocytes # (Manual) Eosinophils # (Manual) PT INR APTT D-Dimer Heparin Anti-Xa Level ABG pH 7.501 H POC ABG pCO2 POC ABG pO2 126.5 H ABG pO2 ABG HCO3 ABG O2 Saturation ABG Base Excess ABG Hemoglobin 10.3 L ABG Oxyhemoglobin ABG Sodium ABG Potassium ABG Chloride ABG Glucose 220 H Oxyhemoglobin Carboxyhemoglobin Sodium Potassium Chloride Carbon Dioxide BUN Creatinine Glucose POC Glucose 117 H 121 H Lactic Acid Calcium Magnesium Ferritin Total Bilirubin Direct Bilirubin AST ALT Alkaline Phosphatase Lactate Dehydrogenase C-Reactive Protein Total Protein Albumin Triglycerides Lipase Arterial Blood Glucose 220 H Arterial Blood Ionized Calcium Urine WBC (Auto) Coronavirus (PCR) SARS-CoV-2 IgG Ab Crossmatch 06/10/20 06/10/20 06/10/20 05:30 09:38 12:03 WBC RBC Hgb Hct MCV MCH MCHC RDW Lymph % (Auto) [place] % (Auto) Lymph # (Auto) [place] # (Auto) Baso # (Auto) Seg Neutrophils % Seg Neuts % (Manual) Lymphocytes % (Manual) Nucleated RBC % Seg Neutrophils # Seg Neutrophils # Man Lymphocytes # (Manual) Monocytes # (Manual) Eosinophils # (Manual) PT INR APTT D-Dimer Heparin Anti-Xa Level ABG pH POC ABG pCO2 POC ABG pO2 ABG pO2 ABG HCO3 ABG O2 Saturation ABG Base Excess ABG Hemoglobin ABG Oxyhemoglobin ABG Sodium ABG Potassium ABG Chloride ABG Glucose Oxyhemoglobin Carboxyhemoglobin Sodium Potassium Chloride Carbon Dioxide BUN Creatinine Glucose POC Glucose 181 H 204 H Lactic Acid Calcium Magnesium Ferritin Total Bilirubin Direct Bilirubin AST ALT Alkaline Phosphatase Lactate Dehydrogenase C-Reactive Protein Total Protein Albumin Triglycerides 738 H Lipase Arterial Blood Glucose Arterial Blood Ionized Calcium Urine WBC (Auto) Coronavirus (PCR) SARS-CoV-2 IgG Ab Crossmatch 06/10/20 06/11/20 06/11/20 17:17 00:04 04:38 WBC RBC Hgb Hct MCV MCH MCHC RDW Lymph % (Auto) [place] % (Auto) Lymph # (Auto) [place] # (Auto) Baso # (Auto) Seg Neutrophils % Seg Neuts % (Manual) Lymphocytes % (Manual) Nucleated RBC % Seg Neutrophils # Seg Neutrophils # Man Lymphocytes # (Manual) Monocytes # (Manual) Eosinophils # (Manual) PT INR APTT D-Dimer Heparin Anti-Xa Level ABG pH 7.479 H POC ABG pCO2 POC ABG pO2 76.7 L ABG pO2 ABG HCO3 ABG O2 Saturation ABG Base Excess ABG Hemoglobin 9.8 L ABG Oxyhemoglobin ABG Sodium 135.8 L ABG Potassium ABG Chloride ABG Glucose 238 H Oxyhemoglobin Carboxyhemoglobin Sodium Potassium Chloride Carbon Dioxide BUN Creatinine Glucose POC Glucose 156 H 178 H Lactic Acid Calcium Magnesium Ferritin Total Bilirubin Direct Bilirubin AST ALT Alkaline Phosphatase Lactate Dehydrogenase C-Reactive Protein Total Protein Albumin Triglycerides Lipase Arterial Blood Glucose 238 H Arterial Blood Ionized Calcium Urine WBC (Auto) Coronavirus (PCR) SARS-CoV-2 IgG Ab Crossmatch 06/11/20 06/11/20 06/11/20 05:21 06:52 11:50 WBC RBC Hgb Hct MCV MCH MCHC RDW Lymph % (Auto) [place] % (Auto) Lymph # (Auto) [place] # (Auto) Baso # (Auto) Seg Neutrophils % Seg Neuts % (Manual) Lymphocytes % (Manual) Nucleated RBC % Seg Neutrophils # Seg Neutrophils # Man Lymphocytes # (Manual) Monocytes # (Manual) Eosinophils # (Manual) PT INR APTT D-Dimer Heparin Anti-Xa Level ABG pH POC ABG pCO2 POC ABG pO2 ABG pO2 ABG HCO3 ABG O2 Saturation ABG Base Excess ABG Hemoglobin ABG Oxyhemoglobin ABG Sodium ABG Potassium ABG Chloride ABG Glucose Oxyhemoglobin Carboxyhemoglobin Sodium Potassium Chloride Carbon Dioxide BUN Creatinine Glucose POC Glucose 215 H 187 H Lactic Acid Calcium Magnesium Ferritin Total Bilirubin Direct Bilirubin AST ALT Alkaline Phosphatase Lactate Dehydrogenase C-Reactive Protein Total Protein Albumin Triglycerides 331 H Lipase Arterial Blood Glucose Arterial Blood Ionized Calcium Urine WBC (Auto) Coronavirus (PCR) SARS-CoV-2 IgG Ab Crossmatch 06/11/20 06/11/20 06/12/20 17:49 23:35 04:52 WBC RBC Hgb Hct MCV MCH MCHC RDW Lymph % (Auto) [place] % (Auto) Lymph # (Auto) [place] # (Auto) Baso # (Auto) Seg Neutrophils % Seg Neuts % (Manual) Lymphocytes % (Manual) Nucleated RBC % Seg Neutrophils # Seg Neutrophils # Man Lymphocytes # (Manual) Monocytes # (Manual) Eosinophils # (Manual) PT INR APTT D-Dimer Heparin Anti-Xa Level ABG pH 7.486 H POC ABG pCO2 POC ABG pO2 ABG pO2 ABG HCO3 ABG O2 Saturation ABG Base Excess ABG Hemoglobin 9.4 L ABG Oxyhemoglobin ABG Sodium ABG Potassium 3.2 L ABG Chloride ABG Glucose 209 H Oxyhemoglobin Carboxyhemoglobin Sodium Potassium Chloride Carbon Dioxide BUN Creatinine Glucose POC Glucose 211 H 200 H Lactic Acid Calcium Magnesium Ferritin Total Bilirubin Direct Bilirubin AST ALT Alkaline Phosphatase Lactate Dehydrogenase C-Reactive Protein Total Protein Albumin Triglycerides Lipase Arterial Blood Glucose 209 H Arterial Blood Ionized Calcium Urine WBC (Auto) Coronavirus (PCR) SARS-CoV-2 IgG Ab Crossmatch 06/12/20 06/12/20 06/12/20 05:13 11:47 18:33 WBC RBC Hgb Hct MCV MCH MCHC RDW Lymph % (Auto) [place] % (Auto) Lymph # (Auto) [place] # (Auto) Baso # (Auto) Seg Neutrophils % Seg Neuts % (Manual) Lymphocytes % (Manual) Nucleated RBC % Seg Neutrophils # Seg Neutrophils # Man Lymphocytes # (Manual) Monocytes # (Manual) Eosinophils # (Manual) PT INR APTT D-Dimer Heparin Anti-Xa Level ABG pH POC ABG pCO2 POC ABG pO2 ABG pO2 ABG HCO3 ABG O2 Saturation ABG Base Excess ABG Hemoglobin ABG Oxyhemoglobin ABG Sodium ABG Potassium ABG Chloride ABG Glucose Oxyhemoglobin Carboxyhemoglobin Sodium Potassium Chloride Carbon Dioxide BUN Creatinine Glucose POC Glucose 174 H 214 H 194 H Lactic Acid Calcium Magnesium Ferritin Total Bilirubin Direct Bilirubin AST ALT Alkaline Phosphatase Lactate Dehydrogenase C-Reactive Protein Total Protein Albumin Triglycerides Lipase Arterial Blood Glucose Arterial Blood Ionized Calcium Urine WBC (Auto) Coronavirus (PCR) SARS-CoV-2 IgG Ab Crossmatch 06/12/20 06/13/20 06/13/20 23:49 05:41 12:30 WBC RBC Hgb Hct MCV MCH MCHC RDW Lymph % (Auto) [place] % (Auto) Lymph # (Auto) [place] # (Auto) Baso # (Auto) Seg Neutrophils % Seg Neuts % (Manual) Lymphocytes % (Manual) Nucleated RBC % Seg Neutrophils # Seg Neutrophils # Man Lymphocytes # (Manual) Monocytes # (Manual) Eosinophils # (Manual) PT INR APTT D-Dimer Heparin Anti-Xa Level ABG pH POC ABG pCO2 POC ABG pO2 ABG pO2 ABG HCO3 ABG O2 Saturation ABG Base Excess ABG Hemoglobin ABG Oxyhemoglobin ABG Sodium ABG Potassium ABG Chloride ABG Glucose Oxyhemoglobin Carboxyhemoglobin Sodium Potassium Chloride Carbon Dioxide BUN Creatinine Glucose POC Glucose 160 H 150 H 181 H Lactic Acid Calcium Magnesium Ferritin Total Bilirubin Direct Bilirubin AST ALT Alkaline Phosphatase Lactate Dehydrogenase C-Reactive Protein Total Protein Albumin Triglycerides Lipase Arterial Blood Glucose Arterial Blood Ionized Calcium Urine WBC (Auto) Coronavirus (PCR) SARS-CoV-2 IgG Ab Crossmatch 06/13/20 06/13/20 06/13/20 14:14 17:48 23:27 WBC 12.8 H RBC 2.33 L Hgb 8.0 L Hct 23.3 L MCV 100 H MCH 34 H MCHC RDW 15.7 H Lymph % (Auto) [place] % (Auto) Lymph # (Auto) [place] # (Auto) Baso # (Auto) Seg Neutrophils % Seg Neuts % (Manual) 85.0 H Lymphocytes % (Manual) 10.0 L Nucleated RBC % Seg Neutrophils # Seg Neutrophils # Man 10.9 H Lymphocytes # (Manual) Monocytes # (Manual) Eosinophils # (Manual) PT INR APTT D-Dimer Heparin Anti-Xa Level ABG pH POC ABG pCO2 POC ABG pO2 ABG pO2 ABG HCO3 ABG O2 Saturation ABG Base Excess ABG Hemoglobin ABG Oxyhemoglobin ABG Sodium ABG Potassium ABG Chloride ABG Glucose Oxyhemoglobin Carboxyhemoglobin Sodium Potassium Chloride Carbon Dioxide BUN Creatinine Glucose POC Glucose 173 H 154 H Lactic Acid Calcium Magnesium Ferritin Total Bilirubin Direct Bilirubin AST ALT Alkaline Phosphatase Lactate Dehydrogenase C-Reactive Protein Total Protein Albumin Triglycerides Lipase Arterial Blood Glucose Arterial Blood Ionized Calcium Urine WBC (Auto) Coronavirus (PCR) SARS-CoV-2 IgG Ab Crossmatch 06/14/20 06/14/20 06/14/20 03:58 05:21 07:15 WBC 26.2 H RBC 2.97 L Hgb 9.7 L Hct 29.9 L D MCV 101 H MCH 33 H MCHC RDW 15.3 H Lymph % (Auto) [place] % (Auto) Lymph # (Auto) [place] # (Auto) Baso # (Auto) Seg Neutrophils % Seg Neuts % (Manual) 79.0 H Lymphocytes % (Manual) 5.0 L Nucleated RBC % 3.0 H Seg Neutrophils # Seg Neutrophils # Man 20.7 H Lymphocytes # (Manual) Monocytes # (Manual) 1.3 H Eosinophils # (Manual) PT INR APTT D-Dimer Heparin Anti-Xa Level ABG pH POC ABG pCO2 51.5 H POC ABG pO2 70.0 L ABG pO2 ABG HCO3 ABG O2 Saturation ABG Base Excess ABG Hemoglobin 10.1 L ABG Oxyhemoglobin ABG Sodium 131.5 L ABG Potassium 3.1 L ABG Chloride 93.0 L ABG Glucose 188 H Oxyhemoglobin Carboxyhemoglobin Sodium Potassium Chloride Carbon Dioxide BUN Creatinine Glucose POC Glucose 147 H Lactic Acid Calcium Magnesium Ferritin Total Bilirubin Direct Bilirubin AST ALT Alkaline Phosphatase Lactate Dehydrogenase C-Reactive Protein Total Protein Albumin Triglycerides Lipase Arterial Blood Glucose 188 H Arterial Blood Ionized Calcium Urine WBC (Auto) Coronavirus (PCR) SARS-CoV-2 IgG Ab Crossmatch 06/14/20 06/14/20 06/14/20 07:15 11:30 11:50 WBC RBC Hgb Hct MCV MCH MCHC RDW Lymph % (Auto) [place] % (Auto) Lymph # (Auto) [place] # (Auto) Baso # (Auto) Seg Neutrophils % Seg Neuts % (Manual) Lymphocytes % (Manual) Nucleated RBC % Seg Neutrophils # Seg Neutrophils # Man Lymphocytes # (Manual) Monocytes # (Manual) Eosinophils # (Manual) PT INR APTT D-Dimer Heparin Anti-Xa Level ABG pH POC ABG pCO2 POC ABG pO2 ABG pO2 ABG HCO3 ABG O2 Saturation ABG Base Excess ABG Hemoglobin ABG Oxyhemoglobin ABG Sodium ABG Potassium ABG Chloride ABG Glucose Oxyhemoglobin Carboxyhemoglobin Sodium 135 L Potassium 3.5 L Chloride 90.4 L Carbon Dioxide 38 H BUN Creatinine 0.5 L Glucose 190 H POC Glucose 176 H Lactic Acid Calcium Magnesium Ferritin 1496.0 H Total Bilirubin Direct Bilirubin AST ALT 81 H Alkaline Phosphatase Lactate Dehydrogenase C-Reactive Protein Total Protein Albumin 2.9 L Triglycerides Lipase Arterial Blood Glucose Arterial Blood Ionized Calcium Urine WBC (Auto) Coronavirus (PCR) SARS-CoV-2 IgG Ab Crossmatch 06/14/20 06/15/20 06/15/20 23:31 04:00 05:00 WBC RBC Hgb Hct MCV MCH MCHC RDW Lymph % (Auto) [place] % (Auto) Lymph # (Auto) [place] # (Auto) Baso # (Auto) Seg Neutrophils % Seg Neuts % (Manual) Lymphocytes % (Manual) Nucleated RBC % Seg Neutrophils # Seg Neutrophils # Man Lymphocytes # (Manual) Monocytes # (Manual) Eosinophils # (Manual) PT INR APTT D-Dimer Heparin Anti-Xa Level ABG pH POC ABG pCO2 POC ABG pO2 ABG pO2 ABG HCO3 ABG O2 Saturation ABG Base Excess ABG Hemoglobin ABG Oxyhemoglobin ABG Sodium ABG Potassium ABG Chloride ABG Glucose Oxyhemoglobin Carboxyhemoglobin Sodium 133 L Potassium Chloride 91.1 L Carbon Dioxide 34 H BUN Creatinine 0.4 L Glucose 159 H POC Glucose 200 H Lactic Acid Calcium Magnesium Ferritin Total Bilirubin 2.00 H Direct Bilirubin AST 47 H ALT 77 H Alkaline Phosphatase Lactate Dehydrogenase C-Reactive Protein Total Protein Albumin 2.6 L Triglycerides 152 H Lipase Arterial Blood Glucose Arterial Blood Ionized Calcium Urine WBC (Auto) Coronavirus (PCR) SARS-CoV-2 IgG Ab Crossmatch 06/15/20 06/15/20 06/15/20 05:35 06:27 11:38 WBC RBC Hgb Hct MCV MCH MCHC RDW Lymph % (Auto) [place] % (Auto) Lymph # (Auto) [place] # (Auto) Baso # (Auto) Seg Neutrophils % Seg Neuts % (Manual) Lymphocytes % (Manual) Nucleated RBC % Seg Neutrophils # Seg Neutrophils # Man Lymphocytes # (Manual) Monocytes # (Manual) Eosinophils # (Manual) PT INR APTT D-Dimer Heparin Anti-Xa Level ABG pH POC ABG pCO2 61.0 H POC ABG pO2 67.9 L ABG pO2 ABG HCO3 ABG O2 Saturation ABG Base Excess ABG Hemoglobin 10.4 L ABG Oxyhemoglobin ABG Sodium 132.7 L ABG Potassium 3.3 L ABG Chloride 92.0 L ABG Glucose 158 H Oxyhemoglobin Carboxyhemoglobin Sodium Potassium Chloride Carbon Dioxide BUN Creatinine Glucose POC Glucose 148 H 197 H Lactic Acid Calcium Magnesium Ferritin Total Bilirubin Direct Bilirubin AST ALT Alkaline Phosphatase Lactate Dehydrogenase C-Reactive Protein Total Protein Albumin Triglycerides Lipase Arterial Blood Glucose 158 H Arterial Blood Ionized Calcium Urine WBC (Auto) Coronavirus (PCR) SARS-CoV-2 IgG Ab Crossmatch 06/15/20 06/15/20 06/16/20 17:29 Unknown 00:01 WBC 20.7 H RBC 2.57 L Hgb 8.9 L Hct 25.8 L MCV 101 H MCH 35 H MCHC 35 H RDW 16.0 H Lymph % (Auto) [place] % (Auto) Lymph # (Auto) [place] # (Auto) Baso # (Auto) Seg Neutrophils % Seg Neuts % (Manual) 83.0 H Lymphocytes % (Manual) 8.0 L Nucleated RBC % Seg Neutrophils # Seg Neutrophils # Man 17.2 H Lymphocytes # (Manual) Monocytes # (Manual) 1.2 H Eosinophils # (Manual) PT INR APTT D-Dimer Heparin Anti-Xa Level ABG pH POC ABG pCO2 POC ABG pO2 ABG pO2 ABG HCO3 ABG O2 Saturation ABG Base Excess ABG Hemoglobin ABG Oxyhemoglobin ABG Sodium ABG Potassium ABG Chloride ABG Glucose Oxyhemoglobin Carboxyhemoglobin Sodium Potassium Chloride Carbon Dioxide BUN Creatinine Glucose POC Glucose 231 H 257 H Lactic Acid Calcium Magnesium Ferritin Total Bilirubin Direct Bilirubin AST ALT Alkaline Phosphatase Lactate Dehydrogenase C-Reactive Protein Total Protein Albumin Triglycerides Lipase Arterial Blood Glucose Arterial Blood Ionized Calcium Urine WBC (Auto) Coronavirus (PCR) SARS-CoV-2 IgG Ab Crossmatch 06/16/20 06/16/20 06/16/20 04:00 04:00 05:22 WBC 13.8 H RBC 2.03 L Hgb 7.6 L Hct 20.7 L MCV 102 H MCH 37 H MCHC 37 H RDW 16.2 H Lymph % (Auto) 4.4 L [place] % (Auto) Lymph # (Auto) 0.6 L [place] # (Auto) Baso # (Auto) Seg Neutrophils % Seg Neuts % (Manual) Lymphocytes % (Manual) Nucleated RBC % Seg Neutrophils # 12.7 H Seg Neutrophils # Man Lymphocytes # (Manual) Monocytes # (Manual) Eosinophils # (Manual) PT INR APTT D-Dimer Heparin Anti-Xa Level ABG pH POC ABG pCO2 POC ABG pO2 ABG pO2 ABG HCO3 ABG O2 Saturation ABG Base Excess ABG Hemoglobin ABG Oxyhemoglobin ABG Sodium ABG Potassium ABG Chloride ABG Glucose Oxyhemoglobin Carboxyhemoglobin Sodium 130 L Potassium Chloride 88.9 L Carbon Dioxide 36 H BUN Creatinine 0.3 L Glucose 276 H POC Glucose 250 H Lactic Acid Calcium Magnesium Ferritin Total Bilirubin Direct Bilirubin AST ALT Alkaline Phosphatase Lactate Dehydrogenase C-Reactive Protein Total Protein Albumin Triglycerides Lipase Arterial Blood Glucose Arterial Blood Ionized Calcium Urine WBC (Auto) Coronavirus (PCR) SARS-CoV-2 IgG Ab Crossmatch 06/16/20 06/16/20 06/17/20 12:44 18:18 00:39 WBC RBC Hgb Hct MCV MCH MCHC RDW Lymph % (Auto) [place] % (Auto) Lymph # (Auto) [place] # (Auto) Baso # (Auto) Seg Neutrophils % Seg Neuts % (Manual) Lymphocytes % (Manual) Nucleated RBC % Seg Neutrophils # Seg Neutrophils # Man Lymphocytes # (Manual) Monocytes # (Manual) Eosinophils # (Manual) PT INR APTT D-Dimer Heparin Anti-Xa Level ABG pH POC ABG pCO2 POC ABG pO2 ABG pO2 ABG HCO3 ABG O2 Saturation ABG Base Excess ABG Hemoglobin ABG Oxyhemoglobin ABG Sodium ABG Potassium ABG Chloride ABG Glucose Oxyhemoglobin Carboxyhemoglobin Sodium Potassium Chloride Carbon Dioxide BUN Creatinine Glucose POC Glucose 279 H 239 H 247 H Lactic Acid Calcium Magnesium Ferritin Total Bilirubin Direct Bilirubin AST ALT Alkaline Phosphatase Lactate Dehydrogenase C-Reactive Protein Total Protein Albumin Triglycerides Lipase Arterial Blood Glucose Arterial Blood Ionized Calcium Urine WBC (Auto) Coronavirus (PCR) SARS-CoV-2 IgG Ab Crossmatch 06/17/20 06/17/20 06/17/20 03:40 04:08 10:54 WBC RBC Hgb Hct MCV MCH MCHC RDW Lymph % (Auto) [place] % (Auto) Lymph # (Auto) [place] # (Auto) Baso # (Auto) Seg Neutrophils % Seg Neuts % (Manual) Lymphocytes % (Manual) Nucleated RBC % Seg Neutrophils # Seg Neutrophils # Man Lymphocytes # (Manual) Monocytes # (Manual) Eosinophils # (Manual) PT INR APTT D-Dimer Heparin Anti-Xa Level ABG pH POC ABG pCO2 65.7 H POC ABG pO2 ABG pO2 ABG HCO3 ABG O2 Saturation ABG Base Excess ABG Hemoglobin 11.9 L ABG Oxyhemoglobin ABG Sodium ABG Potassium ABG Chloride 93.0 L ABG Glucose 244 H Oxyhemoglobin Carboxyhemoglobin Sodium Potassium Chloride Carbon Dioxide BUN Creatinine Glucose POC Glucose 221 H 248 H Lactic Acid Calcium Magnesium Ferritin Total Bilirubin Direct Bilirubin AST ALT Alkaline Phosphatase Lactate Dehydrogenase C-Reactive Protein Total Protein Albumin Triglycerides Lipase Arterial Blood Glucose 244 H Arterial Blood Ionized Calcium Urine WBC (Auto) Coronavirus (PCR) SARS-CoV-2 IgG Ab Crossmatch 06/17/20 06/17/20 06/17/20 17:47 23:11 23:29 WBC RBC Hgb Hct MCV MCH MCHC RDW Lymph % (Auto) [place] % (Auto) Lymph # (Auto) [place] # (Auto) Baso # (Auto) Seg Neutrophils % Seg Neuts % (Manual) Lymphocytes % (Manual) Nucleated RBC % Seg Neutrophils # Seg Neutrophils # Man Lymphocytes # (Manual) Monocytes # (Manual) Eosinophils # (Manual) PT INR APTT D-Dimer Heparin Anti-Xa Level ABG pH POC ABG pCO2 85.2 H POC ABG pO2 48.4 L ABG pO2 ABG HCO3 ABG O2 Saturation ABG Base Excess ABG Hemoglobin 8.0 L ABG Oxyhemoglobin ABG Sodium ABG Potassium ABG Chloride 95.0 L ABG Glucose 292 H Oxyhemoglobin Carboxyhemoglobin Sodium Potassium Chloride Carbon Dioxide BUN Creatinine Glucose POC Glucose 245 H 252 H Lactic Acid Calcium Magnesium Ferritin Total Bilirubin Direct Bilirubin AST ALT Alkaline Phosphatase Lactate Dehydrogenase C-Reactive Protein Total Protein Albumin Triglycerides Lipase Arterial Blood Glucose 292 H Arterial Blood Ionized Calcium Urine WBC (Auto) Coronavirus (PCR) SARS-CoV-2 IgG Ab Crossmatch 06/18/20 06/18/20 06/18/20 03:14 05:34 11:47 WBC RBC Hgb Hct MCV MCH MCHC RDW Lymph % (Auto) [place] % (Auto) Lymph # (Auto) [place] # (Auto) Baso # (Auto) Seg Neutrophils % Seg Neuts % (Manual) Lymphocytes % (Manual) Nucleated RBC % Seg Neutrophils # Seg Neutrophils # Man Lymphocytes # (Manual) Monocytes # (Manual) Eosinophils # (Manual) PT INR APTT D-Dimer Heparin Anti-Xa Level ABG pH POC ABG pCO2 65.4 H POC ABG pO2 160.7 H ABG pO2 ABG HCO3 ABG O2 Saturation ABG Base Excess ABG Hemoglobin 7.8 L ABG Oxyhemoglobin ABG Sodium ABG Potassium ABG Chloride 95.0 L ABG Glucose 251 H Oxyhemoglobin Carboxyhemoglobin Sodium Potassium Chloride Carbon Dioxide BUN Creatinine Glucose POC Glucose 243 H 263 H Lactic Acid Calcium Magnesium Ferritin Total Bilirubin Direct Bilirubin AST ALT Alkaline Phosphatase Lactate Dehydrogenase C-Reactive Protein Total Protein Albumin Triglycerides Lipase Arterial Blood Glucose 251 H Arterial Blood Ionized Calcium Urine WBC (Auto) Coronavirus (PCR) SARS-CoV-2 IgG Ab Crossmatch 06/18/20 06/18/20 06/19/20 17:31 23:33 04:32 WBC RBC Hgb Hct MCV MCH MCHC RDW Lymph % (Auto) [place] % (Auto) Lymph # (Auto) [place] # (Auto) Baso # (Auto) Seg Neutrophils % Seg Neuts % (Manual) Lymphocytes % (Manual) Nucleated RBC % Seg Neutrophils # Seg Neutrophils # Man Lymphocytes # (Manual) Monocytes # (Manual) Eosinophils # (Manual) PT INR APTT D-Dimer Heparin Anti-Xa Level ABG pH POC ABG pCO2 83.1 H POC ABG pO2 65.8 L ABG pO2 ABG HCO3 ABG O2 Saturation ABG Base Excess ABG Hemoglobin 8.9 L ABG Oxyhemoglobin ABG Sodium ABG Potassium ABG Chloride 96.0 L ABG Glucose 297 H Oxyhemoglobin Carboxyhemoglobin Sodium Potassium Chloride Carbon Dioxide BUN Creatinine Glucose POC Glucose 286 H 238 H Lactic Acid Calcium Magnesium Ferritin Total Bilirubin Direct Bilirubin AST ALT Alkaline Phosphatase Lactate Dehydrogenase C-Reactive Protein Total Protein Albumin Triglycerides Lipase Arterial Blood Glucose 297 H Arterial Blood Ionized Calcium Urine WBC (Auto) Coronavirus (PCR) SARS-CoV-2 IgG Ab Crossmatch 06/19/20 06/19/20 06/19/20 05:55 11:20 17:12 WBC RBC Hgb Hct MCV MCH MCHC RDW Lymph % (Auto) [place] % (Auto) Lymph # (Auto) [place] # (Auto) Baso # (Auto) Seg Neutrophils % Seg Neuts % (Manual) Lymphocytes % (Manual) Nucleated RBC % Seg Neutrophils # Seg Neutrophils # Man Lymphocytes # (Manual) Monocytes # (Manual) Eosinophils # (Manual) PT INR APTT D-Dimer Heparin Anti-Xa Level ABG pH POC ABG pCO2 POC ABG pO2 ABG pO2 ABG HCO3 ABG O2 Saturation ABG Base Excess ABG Hemoglobin ABG Oxyhemoglobin ABG Sodium ABG Potassium ABG Chloride ABG Glucose Oxyhemoglobin Carboxyhemoglobin Sodium Potassium Chloride Carbon Dioxide BUN Creatinine Glucose POC Glucose 274 H 282 H 298 H Lactic Acid Calcium Magnesium Ferritin Total Bilirubin Direct Bilirubin AST ALT Alkaline Phosphatase Lactate Dehydrogenase C-Reactive Protein Total Protein Albumin Triglycerides Lipase Arterial Blood Glucose Arterial Blood Ionized Calcium Urine WBC (Auto) Coronavirus (PCR) SARS-CoV-2 IgG Ab Crossmatch 06/19/20 06/20/20 06/20/20 23:08 03:33 06:01 WBC RBC Hgb Hct MCV MCH MCHC RDW Lymph % (Auto) [place] % (Auto) Lymph # (Auto) [place] # (Auto) Baso # (Auto) Seg Neutrophils % Seg Neuts % (Manual) Lymphocytes % (Manual) Nucleated RBC % Seg Neutrophils # Seg Neutrophils # Man Lymphocytes # (Manual) Monocytes # (Manual) Eosinophils # (Manual) PT INR APTT D-Dimer Heparin Anti-Xa Level ABG pH POC ABG pCO2 POC ABG pO2 ABG pO2 69.9 L ABG HCO3 50.8 H ABG O2 Saturation ABG Base Excess 24.2 H ABG Hemoglobin 5.8 L ABG Oxyhemoglobin ABG Sodium ABG Potassium ABG Chloride ABG Glucose Oxyhemoglobin Carboxyhemoglobin Sodium Potassium Chloride Carbon Dioxide BUN Creatinine Glucose POC Glucose 293 H 182 H Lactic Acid Calcium Magnesium Ferritin Total Bilirubin Direct Bilirubin AST ALT Alkaline Phosphatase Lactate Dehydrogenase C-Reactive Protein Total Protein Albumin Triglycerides Lipase Arterial Blood Glucose Arterial Blood Ionized Calcium Urine WBC (Auto) Coronavirus (PCR) SARS-CoV-2 IgG Ab Crossmatch 06/20/20 06/20/20 06/20/20 11:47 17:46 23:37 WBC RBC Hgb Hct MCV MCH MCHC RDW Lymph % (Auto) [place] % (Auto) Lymph # (Auto) [place] # (Auto) Baso # (Auto) Seg Neutrophils % Seg Neuts % (Manual) Lymphocytes % (Manual) Nucleated RBC % Seg Neutrophils # Seg Neutrophils # Man Lymphocytes # (Manual) Monocytes # (Manual) Eosinophils # (Manual) PT INR APTT D-Dimer Heparin Anti-Xa Level ABG pH POC ABG pCO2 POC ABG pO2 ABG pO2 ABG HCO3 ABG O2 Saturation ABG Base Excess ABG Hemoglobin ABG Oxyhemoglobin ABG Sodium ABG Potassium ABG Chloride ABG Glucose Oxyhemoglobin Carboxyhemoglobin Sodium Potassium Chloride Carbon Dioxide BUN Creatinine Glucose POC Glucose 170 H 215 H 256 H Lactic Acid Calcium Magnesium Ferritin Total Bilirubin Direct Bilirubin AST ALT Alkaline Phosphatase Lactate Dehydrogenase C-Reactive Protein Total Protein Albumin Triglycerides Lipase Arterial Blood Glucose Arterial Blood Ionized Calcium Urine WBC (Auto) Coronavirus (PCR) SARS-CoV-2 IgG Ab Crossmatch 06/21/20 06/21/20 06/21/20 04:00 05:14 05:51 WBC RBC Hgb Hct MCV MCH MCHC RDW Lymph % (Auto) [place] % (Auto) Lymph # (Auto) [place] # (Auto) Baso # (Auto) Seg Neutrophils % Seg Neuts % (Manual) Lymphocytes % (Manual) Nucleated RBC % Seg Neutrophils # Seg Neutrophils # Man Lymphocytes # (Manual) Monocytes # (Manual) Eosinophils # (Manual) PT INR APTT D-Dimer Heparin Anti-Xa Level ABG pH 7.474 H POC ABG pCO2 POC ABG pO2 ABG pO2 ABG HCO3 52.1 H ABG O2 Saturation ABG Base Excess 23.3 H ABG Hemoglobin 5.3 L ABG Oxyhemoglobin ABG Sodium ABG Potassium ABG Chloride ABG Glucose Oxyhemoglobin 93.8 L Carboxyhemoglobin Sodium Potassium Chloride Carbon Dioxide BUN Creatinine Glucose POC Glucose 122 H 129 H Lactic Acid Calcium Magnesium Ferritin Total Bilirubin Direct Bilirubin AST ALT Alkaline Phosphatase Lactate Dehydrogenase C-Reactive Protein Total Protein Albumin Triglycerides Lipase Arterial Blood Glucose Arterial Blood Ionized Calcium Urine WBC (Auto) Coronavirus (PCR) SARS-CoV-2 IgG Ab Crossmatch 06/21/20 06/21/20 06/21/20 11:00 11:00 11:42 WBC 14.2 H RBC 1.85 L Hgb 6.2 L Hct 19.5 L* MCV 105 H MCH 34 H MCHC RDW 18.0 H Lymph % (Auto) [place] % (Auto) Lymph # (Auto) [place] # (Auto) Baso # (Auto) Seg Neutrophils % Seg Neuts % (Manual) Lymphocytes % (Manual) Nucleated RBC % Seg Neutrophils # Seg Neutrophils # Man Lymphocytes # (Manual) Monocytes # (Manual) Eosinophils # (Manual) PT INR APTT D-Dimer Heparin Anti-Xa Level ABG pH POC ABG pCO2 POC ABG pO2 ABG pO2 ABG HCO3 ABG O2 Saturation ABG Base Excess ABG Hemoglobin ABG Oxyhemoglobin ABG Sodium ABG Potassium ABG Chloride ABG Glucose Oxyhemoglobin Carboxyhemoglobin Sodium 147 H Potassium Chloride Carbon Dioxide 51 H* BUN 31 H Creatinine 0.5 L Glucose 224 H POC Glucose 217 H Lactic Acid Calcium Magnesium Ferritin Total Bilirubin Direct Bilirubin AST ALT Alkaline Phosphatase Lactate Dehydrogenase C-Reactive Protein Total Protein Albumin Triglycerides Lipase Arterial Blood Glucose Arterial Blood Ionized Calcium Urine WBC (Auto) Coronavirus (PCR) SARS-CoV-2 IgG Ab Crossmatch 06/21/20 06/21/20 06/21/20 14:18 14:30 18:36 WBC RBC Hgb Hct MCV MCH MCHC RDW Lymph % (Auto) [place] % (Auto) Lymph # (Auto) [place] # (Auto) Baso # (Auto) Seg Neutrophils % Seg Neuts % (Manual) Lymphocytes % (Manual) Nucleated RBC % Seg Neutrophils # Seg Neutrophils # Man Lymphocytes # (Manual) Monocytes # (Manual) Eosinophils # (Manual) PT 15.1 H INR 1.19 H APTT D-Dimer Heparin Anti-Xa Level ABG pH POC ABG pCO2 POC ABG pO2 ABG pO2 ABG HCO3 ABG O2 Saturation ABG Base Excess ABG Hemoglobin ABG Oxyhemoglobin ABG Sodium ABG Potassium ABG Chloride ABG Glucose Oxyhemoglobin Carboxyhemoglobin Sodium Potassium Chloride Carbon Dioxide BUN Creatinine Glucose POC Glucose 185 H Lactic Acid Calcium Magnesium Ferritin Total Bilirubin Direct Bilirubin AST ALT Alkaline Phosphatase Lactate Dehydrogenase C-Reactive Protein Total Protein Albumin Triglycerides Lipase Arterial Blood Glucose Arterial Blood Ionized Calcium Urine WBC (Auto) Coronavirus (PCR) SARS-CoV-2 IgG Ab Crossmatch See Detail 06/21/20 06/22/20 06/22/20 21:14 03:50 04:00 WBC RBC Hgb Hct MCV MCH MCHC RDW Lymph % (Auto) [place] % (Auto) Lymph # (Auto) [place] # (Auto) Baso # (Auto) Seg Neutrophils % Seg Neuts % (Manual) Lymphocytes % (Manual) Nucleated RBC % Seg Neutrophils # Seg Neutrophils # Man Lymphocytes # (Manual) Monocytes # (Manual) Eosinophils # (Manual) PT INR APTT D-Dimer Heparin Anti-Xa Level ABG pH 7.451 H POC ABG pCO2 POC ABG pO2 ABG pO2 ABG HCO3 47.5 H ABG O2 Saturation ABG Base Excess 22.0 H ABG Hemoglobin < 5.1 L ABG Oxyhemoglobin ABG Sodium ABG Potassium ABG Chloride ABG Glucose Oxyhemoglobin 94.1 L Carboxyhemoglobin Sodium 149 H Potassium 3.5 L Chloride Carbon Dioxide 42 H* D BUN 34 H Creatinine 0.4 L Glucose 219 H POC Glucose 250 H Lactic Acid Calcium Magnesium Ferritin Total Bilirubin Direct Bilirubin AST ALT Alkaline Phosphatase Lactate Dehydrogenase C-Reactive Protein Total Protein Albumin Triglycerides Lipase Arterial Blood Glucose Arterial Blood Ionized Calcium Urine WBC (Auto) Coronavirus (PCR) SARS-CoV-2 IgG Ab Crossmatch 06/22/20 06/22/20 06/22/20 12:16 14:29 17:56 WBC RBC Hgb Hct MCV MCH MCHC RDW Lymph % (Auto) [place] % (Auto) Lymph # (Auto) [place] # (Auto) Baso # (Auto) Seg Neutrophils % Seg Neuts % (Manual) Lymphocytes % (Manual) Nucleated RBC % Seg Neutrophils # Seg Neutrophils # Man Lymphocytes # (Manual) Monocytes # (Manual) Eosinophils # (Manual) PT 11.8 L INR APTT 23.5 L D-Dimer Heparin Anti-Xa Level ABG pH POC ABG pCO2 POC ABG pO2 ABG pO2 ABG HCO3 ABG O2 Saturation ABG Base Excess ABG Hemoglobin ABG Oxyhemoglobin ABG Sodium ABG Potassium ABG Chloride ABG Glucose Oxyhemoglobin Carboxyhemoglobin Sodium Potassium Chloride Carbon Dioxide BUN Creatinine Glucose POC Glucose 215 H 215 H Lactic Acid Calcium Magnesium Ferritin Total Bilirubin Direct Bilirubin AST ALT Alkaline Phosphatase Lactate Dehydrogenase C-Reactive Protein Total Protein Albumin Triglycerides Lipase Arterial Blood Glucose Arterial Blood Ionized Calcium Urine WBC (Auto) Coronavirus (PCR) SARS-CoV-2 IgG Ab Crossmatch 06/22/20 06/22/20 06/22/20 23:36 23:45 Unknown WBC 14.1 H RBC 2.70 L Hgb 8.9 L 8.9 L Hct 26.9 L 27.2 L D MCV 101 H MCH 33 H MCHC RDW 17.7 H Lymph % (Auto) [place] % (Auto) Lymph # (Auto) [place] # (Auto) Baso # (Auto) Seg Neutrophils % Seg Neuts % (Manual) 92.0 H Lymphocytes % (Manual) 5.0 L Nucleated RBC % Seg Neutrophils # Seg Neutrophils # Man 13.0 H Lymphocytes # (Manual) 0.7 L Monocytes # (Manual) Eosinophils # (Manual) PT INR APTT D-Dimer Heparin Anti-Xa Level ABG pH POC ABG pCO2 POC ABG pO2 ABG pO2 ABG HCO3 ABG O2 Saturation ABG Base Excess ABG Hemoglobin ABG Oxyhemoglobin ABG Sodium ABG Potassium ABG Chloride ABG Glucose Oxyhemoglobin Carboxyhemoglobin Sodium Potassium Chloride Carbon Dioxide BUN Creatinine Glucose POC Glucose 208 H Lactic Acid Calcium Magnesium Ferritin Total Bilirubin Direct Bilirubin AST ALT Alkaline Phosphatase Lactate Dehydrogenase C-Reactive Protein Total Protein Albumin Triglycerides Lipase Arterial Blood Glucose Arterial Blood Ionized Calcium Urine WBC (Auto) Coronavirus (PCR) SARS-CoV-2 IgG Ab Crossmatch 06/23/20 06/23/20 06/23/20 05:17 05:19 06:50 WBC RBC Hgb Hct MCV MCH MCHC RDW Lymph % (Auto) [place] % (Auto) Lymph # (Auto) [place] # (Auto) Baso # (Auto) Seg Neutrophils % Seg Neuts % (Manual) Lymphocytes % (Manual) Nucleated RBC % Seg Neutrophils # Seg Neutrophils # Man Lymphocytes # (Manual) Monocytes # (Manual) Eosinophils # (Manual) PT INR APTT D-Dimer Heparin Anti-Xa Level ABG pH POC ABG pCO2 69.7 H POC ABG pO2 63.3 L ABG pO2 ABG HCO3 ABG O2 Saturation ABG Base Excess ABG Hemoglobin 10.1 L ABG Oxyhemoglobin ABG Sodium ABG Potassium 3.3 L ABG Chloride ABG Glucose 226 H Oxyhemoglobin Carboxyhemoglobin Sodium Potassium 3.0 L Chloride Carbon Dioxide 41 H* BUN 26 H Creatinine 0.4 L Glucose 209 H POC Glucose 200 H Lactic Acid Calcium Magnesium Ferritin Total Bilirubin Direct Bilirubin AST ALT Alkaline Phosphatase Lactate Dehydrogenase C-Reactive Protein Total Protein Albumin 2.9 L Triglycerides Lipase Arterial Blood Glucose 226 H Arterial Blood Ionized Calcium Urine WBC (Auto) Coronavirus (PCR) SARS-CoV-2 IgG Ab Crossmatch 06/23/20 06/23/20 06/23/20 09:41 12:04 18:16 WBC RBC Hgb 9.1 L Hct 28.0 L MCV MCH MCHC RDW Lymph % (Auto) [place] % (Auto) Lymph # (Auto) [place] # (Auto) Baso # (Auto) Seg Neutrophils % Seg Neuts % (Manual) Lymphocytes % (Manual) Nucleated RBC % Seg Neutrophils # Seg Neutrophils # Man Lymphocytes # (Manual) Monocytes # (Manual) Eosinophils # (Manual) PT INR APTT D-Dimer Heparin Anti-Xa Level ABG pH POC ABG pCO2 POC ABG pO2 ABG pO2 ABG HCO3 ABG O2 Saturation ABG Base Excess ABG Hemoglobin ABG Oxyhemoglobin ABG Sodium ABG Potassium ABG Chloride ABG Glucose Oxyhemoglobin Carboxyhemoglobin Sodium Potassium Chloride Carbon Dioxide BUN Creatinine Glucose POC Glucose 146 H 162 H Lactic Acid Calcium Magnesium Ferritin Total Bilirubin Direct Bilirubin AST ALT Alkaline Phosphatase Lactate Dehydrogenase C-Reactive Protein Total Protein Albumin Triglycerides Lipase Arterial Blood Glucose Arterial Blood Ionized Calcium Urine WBC (Auto) Coronavirus (PCR) SARS-CoV-2 IgG Ab Crossmatch 06/23/20 06/23/20 06/24/20 23:24 23:41 02:39 WBC RBC Hgb 8.2 L 8.8 L Hct 24.9 L 26.8 L MCV MCH MCHC RDW Lymph % (Auto) [place] % (Auto) Lymph # (Auto) [place] # (Auto) Baso # (Auto) Seg Neutrophils % Seg Neuts % (Manual) Lymphocytes % (Manual) Nucleated RBC % Seg Neutrophils # Seg Neutrophils # Man Lymphocytes # (Manual) Monocytes # (Manual) Eosinophils # (Manual) PT INR APTT D-Dimer Heparin Anti-Xa Level ABG pH POC ABG pCO2 POC ABG pO2 ABG pO2 ABG HCO3 ABG O2 Saturation ABG Base Excess ABG Hemoglobin ABG Oxyhemoglobin ABG Sodium ABG Potassium ABG Chloride ABG Glucose Oxyhemoglobin Carboxyhemoglobin Sodium Potassium Chloride Carbon Dioxide BUN Creatinine Glucose POC Glucose 248 H Lactic Acid Calcium Magnesium Ferritin Total Bilirubin Direct Bilirubin AST ALT Alkaline Phosphatase Lactate Dehydrogenase C-Reactive Protein Total Protein Albumin Triglycerides Lipase Arterial Blood Glucose Arterial Blood Ionized Calcium Urine WBC (Auto) Coronavirus (PCR) SARS-CoV-2 IgG Ab Crossmatch 06/24/20 06/24/20 06/24/20 02:39 02:45 05:31 WBC RBC Hgb Hct MCV MCH MCHC RDW Lymph % (Auto) [place] % (Auto) Lymph # (Auto) [place] # (Auto) Baso # (Auto) Seg Neutrophils % Seg Neuts % (Manual) Lymphocytes % (Manual) Nucleated RBC % Seg Neutrophils # Seg Neutrophils # Man Lymphocytes # (Manual) Monocytes # (Manual) Eosinophils # (Manual) PT INR APTT D-Dimer Heparin Anti-Xa Level ABG pH POC ABG pCO2 66.9 H POC ABG pO2 109.7 H ABG pO2 ABG HCO3 ABG O2 Saturation ABG Base Excess ABG Hemoglobin 9.7 L ABG Oxyhemoglobin ABG Sodium 135.0 L ABG Potassium ABG Chloride 97.0 L ABG Glucose 277 H Oxyhemoglobin Carboxyhemoglobin Sodium 136 L Potassium Chloride 95.0 L Carbon Dioxide 34 H D BUN 24 H Creatinine 0.3 L Glucose 260 H POC Glucose 164 H Lactic Acid Calcium Magnesium Ferritin Total Bilirubin Direct Bilirubin AST ALT Alkaline Phosphatase Lactate Dehydrogenase C-Reactive Protein Total Protein 5.2 L Albumin 2.6 L Triglycerides Lipase Arterial Blood Glucose 277 H Arterial Blood Ionized Calcium Urine WBC (Auto) Coronavirus (PCR) SARS-CoV-2 IgG Ab Crossmatch 06/24/20 06/24/20 06/24/20 10:00 11:49 17:39 WBC RBC Hgb 8.9 L Hct 26.5 L MCV MCH MCHC RDW Lymph % (Auto) [place] % (Auto) Lymph # (Auto) [place] # (Auto) Baso # (Auto) Seg Neutrophils % Seg Neuts % (Manual) Lymphocytes % (Manual) Nucleated RBC % Seg Neutrophils # Seg Neutrophils # Man Lymphocytes # (Manual) Monocytes # (Manual) Eosinophils # (Manual) PT INR APTT D-Dimer Heparin Anti-Xa Level ABG pH POC ABG pCO2 POC ABG pO2 ABG pO2 ABG HCO3 ABG O2 Saturation ABG Base Excess ABG Hemoglobin ABG Oxyhemoglobin ABG Sodium ABG Potassium ABG Chloride ABG Glucose Oxyhemoglobin Carboxyhemoglobin Sodium Potassium Chloride Carbon Dioxide BUN Creatinine Glucose POC Glucose 198 H 223 H Lactic Acid Calcium Magnesium Ferritin Total Bilirubin Direct Bilirubin AST ALT Alkaline Phosphatase Lactate Dehydrogenase C-Reactive Protein Total Protein Albumin Triglycerides Lipase Arterial Blood Glucose Arterial Blood Ionized Calcium Urine WBC (Auto) Coronavirus (PCR) SARS-CoV-2 IgG Ab Crossmatch 06/24/20 06/25/20 06/25/20 23:56 02:16 04:08 WBC RBC Hgb Hct MCV MCH MCHC RDW Lymph % (Auto) [place] % (Auto) Lymph # (Auto) [place] # (Auto) Baso # (Auto) Seg Neutrophils % Seg Neuts % (Manual) Lymphocytes % (Manual) Nucleated RBC % Seg Neutrophils # Seg Neutrophils # Man Lymphocytes # (Manual) Monocytes # (Manual) Eosinophils # (Manual) PT INR APTT D-Dimer Heparin Anti-Xa Level ABG pH 7.454 H POC ABG pCO2 56.9 H POC ABG pO2 61.0 L ABG pO2 ABG HCO3 ABG O2 Saturation ABG Base Excess ABG Hemoglobin ABG Oxyhemoglobin ABG Sodium 134.3 L ABG Potassium ABG Chloride 92.0 L ABG Glucose 246 H Oxyhemoglobin Carboxyhemoglobin Sodium 134 L Potassium Chloride 89.7 L Carbon Dioxide 36 H BUN Creatinine 0.3 L Glucose 254 H POC Glucose 225 H Lactic Acid Calcium Magnesium Ferritin Total Bilirubin Direct Bilirubin AST ALT Alkaline Phosphatase Lactate Dehydrogenase C-Reactive Protein Total Protein Albumin 2.9 L Triglycerides Lipase Arterial Blood Glucose 246 H Arterial Blood Ionized Calcium Urine WBC (Auto) Coronavirus (PCR) SARS-CoV-2 IgG Ab Crossmatch 06/25/20 06/25/20 06/25/20 05:44 11:35 17:33 WBC RBC Hgb Hct MCV MCH MCHC RDW Lymph % (Auto) [place] % (Auto) Lymph # (Auto) [place] # (Auto) Baso # (Auto) Seg Neutrophils % Seg Neuts % (Manual) Lymphocytes % (Manual) Nucleated RBC % Seg Neutrophils # Seg Neutrophils # Man Lymphocytes # (Manual) Monocytes # (Manual) Eosinophils # (Manual) PT INR APTT D-Dimer Heparin Anti-Xa Level ABG pH POC ABG pCO2 POC ABG pO2 ABG pO2 ABG HCO3 ABG O2 Saturation ABG Base Excess ABG Hemoglobin ABG Oxyhemoglobin ABG Sodium ABG Potassium ABG Chloride ABG Glucose Oxyhemoglobin Carboxyhemoglobin Sodium Potassium Chloride Carbon Dioxide BUN Creatinine Glucose POC Glucose 170 H 175 H 229 H Lactic Acid Calcium Magnesium Ferritin Total Bilirubin Direct Bilirubin AST ALT Alkaline Phosphatase Lactate Dehydrogenase C-Reactive Protein Total Protein Albumin Triglycerides Lipase Arterial Blood Glucose Arterial Blood Ionized Calcium Urine WBC (Auto) Coronavirus (PCR) SARS-CoV-2 IgG Ab Crossmatch 06/25/20 06/26/20 06/26/20 23:55 02:17 02:17 WBC RBC Hgb 10.0 L Hct 30.4 L MCV MCH MCHC RDW Lymph % (Auto) [place] % (Auto) Lymph # (Auto) [place] # (Auto) Baso # (Auto) Seg Neutrophils % Seg Neuts % (Manual) Lymphocytes % (Manual) Nucleated RBC % Seg Neutrophils # Seg Neutrophils # Man Lymphocytes # (Manual) Monocytes # (Manual) Eosinophils # (Manual) PT INR APTT D-Dimer Heparin Anti-Xa Level ABG pH POC ABG pCO2 POC ABG pO2 ABG pO2 ABG HCO3 ABG O2 Saturation ABG Base Excess ABG Hemoglobin ABG Oxyhemoglobin ABG Sodium ABG Potassium ABG Chloride ABG Glucose Oxyhemoglobin Carboxyhemoglobin Sodium 136 L Potassium Chloride 90.1 L Carbon Dioxide 39 H BUN Creatinine 0.2 L Glucose 232 H POC Glucose 192 H Lactic Acid Calcium Magnesium Ferritin Total Bilirubin Direct Bilirubin AST ALT Alkaline Phosphatase Lactate Dehydrogenase C-Reactive Protein Total Protein 6.1 L Albumin 2.9 L Triglycerides Lipase Arterial Blood Glucose Arterial Blood Ionized Calcium Urine WBC (Auto) Coronavirus (PCR) SARS-CoV-2 IgG Ab Crossmatch 06/26/20 06/26/20 06/26/20 04:15 04:49 05:28 WBC RBC Hgb Hct MCV MCH MCHC RDW Lymph % (Auto) [place] % (Auto) Lymph # (Auto) [place] # (Auto) Baso # (Auto) Seg Neutrophils % Seg Neuts % (Manual) Lymphocytes % (Manual) Nucleated RBC % Seg Neutrophils # Seg Neutrophils # Man Lymphocytes # (Manual) Monocytes # (Manual) Eosinophils # (Manual) PT INR APTT D-Dimer Heparin Anti-Xa Level ABG pH 7.453 H POC ABG pCO2 59.6 H POC ABG pO2 ABG pO2 ABG HCO3 ABG O2 Saturation ABG Base Excess ABG Hemoglobin 10.0 L ABG Oxyhemoglobin ABG Sodium 134.2 L ABG Potassium 3.3 L ABG Chloride 92.0 L ABG Glucose 305 H Oxyhemoglobin Carboxyhemoglobin Sodium Potassium Chloride Carbon Dioxide BUN Creatinine Glucose POC Glucose 234 H Lactic Acid Calcium Magnesium Ferritin Total Bilirubin Direct Bilirubin AST ALT Alkaline Phosphatase Lactate Dehydrogenase C-Reactive Protein Total Protein Albumin Triglycerides 203 H Lipase Arterial Blood Glucose 305 H Arterial Blood Ionized Calcium Urine WBC (Auto) Coronavirus (PCR) SARS-CoV-2 IgG Ab Crossmatch 06/26/20 06/26/20 06/26/20 11:58 17:58 21:32 WBC RBC Hgb Hct MCV MCH MCHC RDW Lymph % (Auto) [place] % (Auto) Lymph # (Auto) [place] # (Auto) Baso # (Auto) Seg Neutrophils % Seg Neuts % (Manual) Lymphocytes % (Manual) Nucleated RBC % Seg Neutrophils # Seg Neutrophils # Man Lymphocytes # (Manual) Monocytes # (Manual) Eosinophils # (Manual) PT INR APTT D-Dimer Heparin Anti-Xa Level ABG pH POC ABG pCO2 POC ABG pO2 ABG pO2 ABG HCO3 ABG O2 Saturation ABG Base Excess ABG Hemoglobin ABG Oxyhemoglobin ABG Sodium ABG Potassium ABG Chloride ABG Glucose Oxyhemoglobin Carboxyhemoglobin Sodium Potassium Chloride Carbon Dioxide BUN Creatinine Glucose POC Glucose 198 H 193 H 191 H Lactic Acid Calcium Magnesium Ferritin Total Bilirubin Direct Bilirubin AST ALT Alkaline Phosphatase Lactate Dehydrogenase C-Reactive Protein Total Protein Albumin Triglycerides Lipase Arterial Blood Glucose Arterial Blood Ionized Calcium Urine WBC (Auto) Coronavirus (PCR) SARS-CoV-2 IgG Ab Crossmatch 06/26/20 06/27/20 06/27/20 23:40 04:35 05:32 WBC RBC Hgb Hct MCV MCH MCHC RDW Lymph % (Auto) [place] % (Auto) Lymph # (Auto) [place] # (Auto) Baso # (Auto) Seg Neutrophils % Seg Neuts % (Manual) Lymphocytes % (Manual) Nucleated RBC % Seg Neutrophils # Seg Neutrophils # Man Lymphocytes # (Manual) Monocytes # (Manual) Eosinophils # (Manual) PT INR APTT D-Dimer Heparin Anti-Xa Level ABG pH 7.464 H POC ABG pCO2 60.8 H POC ABG pO2 ABG pO2 ABG HCO3 ABG O2 Saturation ABG Base Excess ABG Hemoglobin 10.1 L ABG Oxyhemoglobin ABG Sodium ABG Potassium 2.9 L ABG Chloride 92.0 L ABG Glucose 298 H Oxyhemoglobin Carboxyhemoglobin Sodium Potassium Chloride Carbon Dioxide BUN Creatinine Glucose POC Glucose 241 H 211 H Lactic Acid Calcium Magnesium Ferritin Total Bilirubin Direct Bilirubin AST ALT Alkaline Phosphatase Lactate Dehydrogenase C-Reactive Protein Total Protein Albumin Triglycerides Lipase Arterial Blood Glucose 298 H Arterial Blood Ionized Calcium Urine WBC (Auto) Coronavirus (PCR) SARS-CoV-2 IgG Ab Crossmatch 06/27/20 06/27/20 06/27/20 12:37 18:08 20:52 WBC RBC Hgb Hct MCV MCH MCHC RDW Lymph % (Auto) [place] % (Auto) Lymph # (Auto) [place] # (Auto) Baso # (Auto) Seg Neutrophils % Seg Neuts % (Manual) Lymphocytes % (Manual) Nucleated RBC % Seg Neutrophils # Seg Neutrophils # Man Lymphocytes # (Manual) Monocytes # (Manual) Eosinophils # (Manual) PT INR APTT D-Dimer Heparin Anti-Xa Level ABG pH POC ABG pCO2 POC ABG pO2 ABG pO2 ABG HCO3 ABG O2 Saturation ABG Base Excess ABG Hemoglobin ABG Oxyhemoglobin ABG Sodium ABG Potassium ABG Chloride ABG Glucose Oxyhemoglobin Carboxyhemoglobin Sodium Potassium Chloride Carbon Dioxide BUN Creatinine Glucose POC Glucose 182 H 197 H 195 H Lactic Acid Calcium Magnesium Ferritin Total Bilirubin Direct Bilirubin AST ALT Alkaline Phosphatase Lactate Dehydrogenase C-Reactive Protein Total Protein Albumin Triglycerides Lipase Arterial Blood Glucose Arterial Blood Ionized Calcium Urine WBC (Auto) Coronavirus (PCR) SARS-CoV-2 IgG Ab Crossmatch 06/27/20 06/28/20 06/28/20 Unknown 04:17 04:50 WBC RBC Hgb Hct MCV MCH MCHC RDW Lymph % (Auto) [place] % (Auto) Lymph # (Auto) [place] # (Auto) Baso # (Auto) Seg Neutrophils % Seg Neuts % (Manual) Lymphocytes % (Manual) Nucleated RBC % Seg Neutrophils # Seg Neutrophils # Man Lymphocytes # (Manual) Monocytes # (Manual) Eosinophils # (Manual) PT INR APTT D-Dimer Heparin Anti-Xa Level ABG pH POC ABG pCO2 58.6 H POC ABG pO2 60.1 L ABG pO2 ABG HCO3 ABG O2 Saturation ABG Base Excess ABG Hemoglobin 10.0 L ABG Oxyhemoglobin ABG Sodium 125.3 L ABG Potassium ABG Chloride 93.0 L ABG Glucose 308 H Oxyhemoglobin Carboxyhemoglobin Sodium Potassium 2.9 L* Chloride 93.4 L Carbon Dioxide 42 H* BUN Creatinine 0.3 L Glucose 211 H POC Glucose 252 H Lactic Acid Calcium 8.1 L Magnesium Ferritin Total Bilirubin Direct Bilirubin AST ALT Alkaline Phosphatase Lactate Dehydrogenase C-Reactive Protein Total Protein 5.1 L Albumin 2.4 L Triglycerides Lipase Arterial Blood Glucose 308 H Arterial Blood Ionized Calcium Urine WBC (Auto) Coronavirus (PCR) SARS-CoV-2 IgG Ab Crossmatch 06/28/20 06/28/20 06/28/20 06:35 06:35 11:36 WBC 18.9 H RBC 2.85 L Hgb 9.5 L Hct 28.4 L MCV 100 H MCH 33 H MCHC RDW 17.3 H Lymph % (Auto) [place] % (Auto) Lymph # (Auto) [place] # (Auto) Baso # (Auto) Seg Neutrophils % 88.6 H Seg Neuts % (Manual) 95.0 H Lymphocytes % (Manual) 1.0 L Nucleated RBC % Seg Neutrophils # 15.9 H Seg Neutrophils # Man 18.0 H Lymphocytes # (Manual) 0.2 L Monocytes # (Manual) Eosinophils # (Manual) PT INR APTT D-Dimer Heparin Anti-Xa Level ABG pH POC ABG pCO2 POC ABG pO2 ABG pO2 ABG HCO3 ABG O2 Saturation ABG Base Excess ABG Hemoglobin ABG Oxyhemoglobin ABG Sodium ABG Potassium ABG Chloride ABG Glucose Oxyhemoglobin Carboxyhemoglobin Sodium Potassium Chloride 94.2 L Carbon Dioxide 38 H BUN Creatinine 0.3 L Glucose 228 H POC Glucose 243 H Lactic Acid Calcium Magnesium Ferritin Total Bilirubin Direct Bilirubin AST ALT Alkaline Phosphatase Lactate Dehydrogenase C-Reactive Protein Total Protein 6.1 L Albumin 2.7 L Triglycerides Lipase Arterial Blood Glucose Arterial Blood Ionized Calcium Urine WBC (Auto) Coronavirus (PCR) SARS-CoV-2 IgG Ab Crossmatch 06/28/20 06/28/20 06/29/20 16:53 21:10 00:06 WBC RBC Hgb Hct MCV MCH MCHC RDW Lymph % (Auto) [place] % (Auto) Lymph # (Auto) [place] # (Auto) Baso # (Auto) Seg Neutrophils % Seg Neuts % (Manual) Lymphocytes % (Manual) Nucleated RBC % Seg Neutrophils # Seg Neutrophils # Man Lymphocytes # (Manual) Monocytes # (Manual) Eosinophils # (Manual) PT INR APTT D-Dimer Heparin Anti-Xa Level ABG pH POC ABG pCO2 POC ABG pO2 ABG pO2 ABG HCO3 ABG O2 Saturation ABG Base Excess ABG Hemoglobin ABG Oxyhemoglobin ABG Sodium ABG Potassium ABG Chloride ABG Glucose Oxyhemoglobin Carboxyhemoglobin Sodium Potassium Chloride Carbon Dioxide BUN Creatinine Glucose POC Glucose 211 H 195 H 200 H Lactic Acid Calcium Magnesium Ferritin Total Bilirubin Direct Bilirubin AST ALT Alkaline Phosphatase Lactate Dehydrogenase C-Reactive Protein Total Protein Albumin Triglycerides Lipase Arterial Blood Glucose Arterial Blood Ionized Calcium Urine WBC (Auto) Coronavirus (PCR) SARS-CoV-2 IgG Ab Crossmatch 06/29/20 06/29/20 06/29/20 03:11 04:00 04:00 WBC 18.8 H RBC 2.82 L Hgb 10.1 L Hct 28.5 L MCV 101 H MCH 36 H MCHC 36 H RDW 17.5 H Lymph % (Auto) 10.7 L [place] % (Auto) Lymph # (Auto) [place] # (Auto) 1.0 H Baso # (Auto) 0.3 H Seg Neutrophils % 82.2 H Seg Neuts % (Manual) Lymphocytes % (Manual) Nucleated RBC % Seg Neutrophils # 15.5 H Seg Neutrophils # Man Lymphocytes # (Manual) Monocytes # (Manual) Eosinophils # (Manual) PT INR APTT D-Dimer Heparin Anti-Xa Level ABG pH POC ABG pCO2 57.5 H POC ABG pO2 69.1 L ABG pO2 ABG HCO3 ABG O2 Saturation ABG Base Excess ABG Hemoglobin 10.2 L ABG Oxyhemoglobin 92.3 L ABG Sodium 130.7 L ABG Potassium 3.2 L ABG Chloride 93.0 L ABG Glucose 228 H Oxyhemoglobin Carboxyhemoglobin Sodium 134 L Potassium 3.3 L Chloride 89.5 L Carbon Dioxide 40 H BUN Creatinine 0.2 L Glucose 190 H POC Glucose Lactic Acid Calcium Magnesium Ferritin Total Bilirubin Direct Bilirubin AST < 5 L ALT < 5 L Alkaline Phosphatase Lactate Dehydrogenase C-Reactive Protein Total Protein 5.9 L Albumin 2.2 L Triglycerides Lipase Arterial Blood Glucose 228 H Arterial Blood Ionized Calcium Urine WBC (Auto) Coronavirus (PCR) SARS-CoV-2 IgG Ab Crossmatch 06/29/20 06/29/20 06/29/20 05:00 05:23 09:36 WBC RBC Hgb Hct MCV MCH MCHC RDW Lymph % (Auto) [place] % (Auto) Lymph # (Auto) [place] # (Auto) Baso # (Auto) Seg Neutrophils % Seg Neuts % (Manual) Lymphocytes % (Manual) Nucleated RBC % Seg Neutrophils # Seg Neutrophils # Man Lymphocytes # (Manual) Monocytes # (Manual) Eosinophils # (Manual) PT INR APTT D-Dimer Heparin Anti-Xa Level ABG pH POC ABG pCO2 POC ABG pO2 ABG pO2 ABG HCO3 ABG O2 Saturation ABG Base Excess ABG Hemoglobin ABG Oxyhemoglobin ABG Sodium ABG Potassium ABG Chloride ABG Glucose Oxyhemoglobin Carboxyhemoglobin Sodium Potassium Chloride Carbon Dioxide BUN Creatinine Glucose POC Glucose 165 H Lactic Acid Calcium Magnesium Ferritin Total Bilirubin Direct Bilirubin AST ALT Alkaline Phosphatase Lactate Dehydrogenase C-Reactive Protein Total Protein Albumin Triglycerides 1544 H 1799 H Lipase Arterial Blood Glucose Arterial Blood Ionized Calcium Urine WBC (Auto) Coronavirus (PCR) SARS-CoV-2 IgG Ab Crossmatch 06/29/20 06/29/20 06/29/20 09:36 12:02 18:00 WBC RBC Hgb Hct MCV MCH MCHC RDW Lymph % (Auto) [place] % (Auto) Lymph # (Auto) [place] # (Auto) Baso # (Auto) Seg Neutrophils % Seg Neuts % (Manual) Lymphocytes % (Manual) Nucleated RBC % Seg Neutrophils # Seg Neutrophils # Man Lymphocytes # (Manual) Monocytes # (Manual) Eosinophils # (Manual) PT INR APTT D-Dimer Heparin Anti-Xa Level ABG pH POC ABG pCO2 POC ABG pO2 ABG pO2 ABG HCO3 ABG O2 Saturation ABG Base Excess ABG Hemoglobin ABG Oxyhemoglobin ABG Sodium ABG Potassium ABG Chloride ABG Glucose Oxyhemoglobin Carboxyhemoglobin Sodium Potassium Chloride Carbon Dioxide BUN Creatinine Glucose POC Glucose 197 H 187 H Lactic Acid Calcium Magnesium Ferritin Total Bilirubin Direct Bilirubin AST ALT Alkaline Phosphatase Lactate Dehydrogenase C-Reactive Protein Total Protein Albumin Triglycerides Lipase 86 H Arterial Blood Glucose Arterial Blood Ionized Calcium Urine WBC (Auto) Coronavirus (PCR) SARS-CoV-2 IgG Ab Crossmatch 06/29/20 06/30/20 06/30/20 23:33 03:46 05:50 WBC RBC Hgb Hct MCV MCH MCHC RDW Lymph % (Auto) [place] % (Auto) Lymph # (Auto) [place] # (Auto) Baso # (Auto) Seg Neutrophils % Seg Neuts % (Manual) Lymphocytes % (Manual) Nucleated RBC % Seg Neutrophils # Seg Neutrophils # Man Lymphocytes # (Manual) Monocytes # (Manual) Eosinophils # (Manual) PT INR APTT D-Dimer Heparin Anti-Xa Level ABG pH 7.466 H POC ABG pCO2 57.3 H POC ABG pO2 66.1 L ABG pO2 ABG HCO3 ABG O2 Saturation ABG Base Excess ABG Hemoglobin 10.2 L ABG Oxyhemoglobin 92.3 L ABG Sodium 134.4 L ABG Potassium 3.2 L ABG Chloride 94.0 L ABG Glucose 178 H Oxyhemoglobin Carboxyhemoglobin Sodium Potassium Chloride Carbon Dioxide BUN Creatinine Glucose POC Glucose 170 H 170 H Lactic Acid Calcium Magnesium Ferritin Total Bilirubin Direct Bilirubin AST ALT Alkaline Phosphatase Lactate Dehydrogenase C-Reactive Protein Total Protein Albumin Triglycerides Lipase Arterial Blood Glucose 178 H Arterial Blood Ionized Calcium Urine WBC (Auto) Coronavirus (PCR) SARS-CoV-2 IgG Ab Crossmatch 06/30/20 06/30/20 06/30/20 07:00 07:00 12:04 WBC 15.6 H RBC 2.91 L Hgb 9.8 L Hct 29.7 L MCV 102 H MCH 34 H MCHC RDW 17.8 H Lymph % (Auto) [place] % (Auto) Lymph # (Auto) [place] # (Auto) Baso # (Auto) Seg Neutrophils % Seg Neuts % (Manual) Lymphocytes % (Manual) 5.0 L Nucleated RBC % Seg Neutrophils # Seg Neutrophils # Man 14.8 H Lymphocytes # (Manual) 0.8 L Monocytes # (Manual) Eosinophils # (Manual) PT INR APTT D-Dimer Heparin Anti-Xa Level ABG pH POC ABG pCO2 POC ABG pO2 ABG pO2 ABG HCO3 ABG O2 Saturation ABG Base Excess ABG Hemoglobin ABG Oxyhemoglobin ABG Sodium ABG Potassium ABG Chloride ABG Glucose Oxyhemoglobin Carboxyhemoglobin Sodium Potassium Chloride 93.3 L Carbon Dioxide 43 H* BUN Creatinine 0.3 L Glucose 260 H POC Glucose 245 H Lactic Acid Calcium Magnesium Ferritin Total Bilirubin Direct Bilirubin AST ALT Alkaline Phosphatase Lactate Dehydrogenase C-Reactive Protein Total Protein Albumin 2.8 L Triglycerides 452 H Lipase Arterial Blood Glucose Arterial Blood Ionized Calcium Urine WBC (Auto) Coronavirus (PCR) SARS-CoV-2 IgG Ab Crossmatch 06/30/20 07/01/20 07/01/20 17:32 00:02 05:02 WBC RBC Hgb Hct MCV MCH MCHC RDW Lymph % (Auto) [place] % (Auto) Lymph # (Auto) [place] # (Auto) Baso # (Auto) Seg Neutrophils % Seg Neuts % (Manual) Lymphocytes % (Manual) Nucleated RBC % Seg Neutrophils # Seg Neutrophils # Man Lymphocytes # (Manual) Monocytes # (Manual) Eosinophils # (Manual) PT INR APTT D-Dimer Heparin Anti-Xa Level ABG pH POC ABG pCO2 58.1 H POC ABG pO2 ABG pO2 ABG HCO3 ABG O2 Saturation ABG Base Excess ABG Hemoglobin 11.2 L ABG Oxyhemoglobin ABG Sodium 132.7 L ABG Potassium ABG Chloride 92.0 L ABG Glucose 238 H Oxyhemoglobin Carboxyhemoglobin Sodium Potassium Chloride Carbon Dioxide BUN Creatinine Glucose POC Glucose 209 H 208 H Lactic Acid Calcium Magnesium Ferritin Total Bilirubin Direct Bilirubin AST ALT Alkaline Phosphatase Lactate Dehydrogenase C-Reactive Protein Total Protein Albumin Triglycerides Lipase Arterial Blood Glucose 238 H Arterial Blood Ionized Calcium Urine WBC (Auto) Coronavirus (PCR) SARS-CoV-2 IgG Ab Crossmatch 07/01/20 07/01/20 07/01/20 06:16 06:41 06:41 WBC 18.1 H RBC 2.33 L Hgb 7.1 L Hct 21.3 L D MCV MCH MCHC RDW Lymph % (Auto) [place] % (Auto) Lymph # (Auto) [place] # (Auto) Baso # (Auto) Seg Neutrophils % Seg Neuts % (Manual) 82.0 H Lymphocytes % (Manual) 7.0 L Nucleated RBC % 1.0 H Seg Neutrophils # Seg Neutrophils # Man 14.8 H Lymphocytes # (Manual) Monocytes # (Manual) 1.1 H Eosinophils # (Manual) 0.5 H PT INR APTT D-Dimer Heparin Anti-Xa Level < 0.10 L ABG pH POC ABG pCO2 POC ABG pO2 ABG pO2 ABG HCO3 ABG O2 Saturation ABG Base Excess ABG Hemoglobin ABG Oxyhemoglobin ABG Sodium ABG Potassium ABG Chloride ABG Glucose Oxyhemoglobin Carboxyhemoglobin Sodium Potassium Chloride Carbon Dioxide BUN Creatinine Glucose POC Glucose 180 H Lactic Acid Calcium Magnesium Ferritin Total Bilirubin Direct Bilirubin AST ALT Alkaline Phosphatase Lactate Dehydrogenase C-Reactive Protein Total Protein Albumin Triglycerides Lipase Arterial Blood Glucose Arterial Blood Ionized Calcium Urine WBC (Auto) Coronavirus (PCR) SARS-CoV-2 IgG Ab Crossmatch 07/01/20 07/01/20 07/01/20 08:11 12:04 16:16 WBC RBC Hgb Hct MCV MCH MCHC RDW Lymph % (Auto) [place] % (Auto) Lymph # (Auto) [place] # (Auto) Baso # (Auto) Seg Neutrophils % Seg Neuts % (Manual) Lymphocytes % (Manual) Nucleated RBC % Seg Neutrophils # Seg Neutrophils # Man Lymphocytes # (Manual) Monocytes # (Manual) Eosinophils # (Manual) PT INR APTT D-Dimer Heparin Anti-Xa Level 1.02 H ABG pH POC ABG pCO2 POC ABG pO2 ABG pO2 ABG HCO3 ABG O2 Saturation ABG Base Excess ABG Hemoglobin ABG Oxyhemoglobin ABG Sodium ABG Potassium ABG Chloride ABG Glucose Oxyhemoglobin Carboxyhemoglobin Sodium 135 L Potassium 3.0 L Chloride 93.1 L Carbon Dioxide 40 H BUN Creatinine 0.3 L Glucose 140 H POC Glucose 223 H Lactic Acid Calcium Magnesium Ferritin Total Bilirubin Direct Bilirubin AST ALT Alkaline Phosphatase Lactate Dehydrogenase C-Reactive Protein Total Protein Albumin Triglycerides Lipase Arterial Blood Glucose Arterial Blood Ionized Calcium Urine WBC (Auto) Coronavirus (PCR) SARS-CoV-2 IgG Ab Crossmatch 07/01/20 07/01/20 07/02/20 17:09 23:19 00:56 WBC RBC Hgb Hct MCV MCH MCHC RDW Lymph % (Auto) [place] % (Auto) Lymph # (Auto) [place] # (Auto) Baso # (Auto) Seg Neutrophils % Seg Neuts % (Manual) Lymphocytes % (Manual) Nucleated RBC % Seg Neutrophils # Seg Neutrophils # Man Lymphocytes # (Manual) Monocytes # (Manual) Eosinophils # (Manual) PT INR APTT D-Dimer Heparin Anti-Xa Level 0.22 L ABG pH POC ABG pCO2 POC ABG pO2 ABG pO2 ABG HCO3 ABG O2 Saturation ABG Base Excess ABG Hemoglobin ABG Oxyhemoglobin ABG Sodium ABG Potassium ABG Chloride ABG Glucose Oxyhemoglobin Carboxyhemoglobin Sodium Potassium Chloride Carbon Dioxide BUN Creatinine Glucose POC Glucose 233 H 255 H Lactic Acid Calcium Magnesium Ferritin Total Bilirubin Direct Bilirubin AST ALT Alkaline Phosphatase Lactate Dehydrogenase C-Reactive Protein Total Protein Albumin Triglycerides Lipase Arterial Blood Glucose Arterial Blood Ionized Calcium Urine WBC (Auto) Coronavirus (PCR) SARS-CoV-2 IgG Ab Crossmatch 07/02/20 07/02/20 07/02/20 03:51 05:35 11:39 WBC RBC Hgb Hct MCV MCH MCHC RDW Lymph % (Auto) [place] % (Auto) Lymph # (Auto) [place] # (Auto) Baso # (Auto) Seg Neutrophils % Seg Neuts % (Manual) Lymphocytes % (Manual) Nucleated RBC % Seg Neutrophils # Seg Neutrophils # Man Lymphocytes # (Manual) Monocytes # (Manual) Eosinophils # (Manual) PT INR APTT D-Dimer Heparin Anti-Xa Level ABG pH POC ABG pCO2 54.9 H POC ABG pO2 52.1 L ABG pO2 ABG HCO3 ABG O2 Saturation ABG Base Excess ABG Hemoglobin 11.9 L ABG Oxyhemoglobin 82.8 L ABG Sodium 130.2 L ABG Potassium ABG Chloride 92.0 L ABG Glucose 249 H Oxyhemoglobin Carboxyhemoglobin 1.9 H Sodium Potassium Chloride Carbon Dioxide BUN Creatinine Glucose POC Glucose 205 H 235 H Lactic Acid Calcium Magnesium Ferritin Total Bilirubin Direct Bilirubin AST ALT Alkaline Phosphatase Lactate Dehydrogenase C-Reactive Protein Total Protein Albumin Triglycerides Lipase Arterial Blood Glucose 249 H Arterial Blood Ionized Calcium Urine WBC (Auto) Coronavirus (PCR) SARS-CoV-2 IgG Ab Crossmatch 07/02/20 07/02/20 07/02/20 16:08 16:08 17:54 WBC 19.8 H RBC 3.28 L Hgb 10.7 L D Hct 32.7 L D MCV 100 H MCH 33 H MCHC RDW 17.2 H Lymph % (Auto) [place] % (Auto) Lymph # (Auto) [place] # (Auto) Baso # (Auto) Seg Neutrophils % Seg Neuts % (Manual) Lymphocytes % (Manual) Nucleated RBC % Seg Neutrophils # Seg Neutrophils # Man Lymphocytes # (Manual) Monocytes # (Manual) Eosinophils # (Manual) PT INR APTT D-Dimer Heparin Anti-Xa Level ABG pH POC ABG pCO2 POC ABG pO2 ABG pO2 ABG HCO3 ABG O2 Saturation ABG Base Excess ABG Hemoglobin ABG Oxyhemoglobin ABG Sodium ABG Potassium ABG Chloride ABG Glucose Oxyhemoglobin Carboxyhemoglobin Sodium 136 L Potassium Chloride 92.4 L Carbon Dioxide 35 H BUN Creatinine 0.3 L Glucose 203 H POC Glucose 175 H Lactic Acid Calcium Magnesium Ferritin Total Bilirubin Direct Bilirubin AST ALT Alkaline Phosphatase Lactate Dehydrogenase C-Reactive Protein Total Protein Albumin Triglycerides Lipase Arterial Blood Glucose Arterial Blood Ionized Calcium Urine WBC (Auto) Coronavirus (PCR) SARS-CoV-2 IgG Ab Crossmatch 07/02/20 07/03/20 07/03/20 23:46 03:25 05:54 WBC RBC Hgb Hct MCV MCH MCHC RDW Lymph % (Auto) [place] % (Auto) Lymph # (Auto) [place] # (Auto) Baso # (Auto) Seg Neutrophils % Seg Neuts % (Manual) Lymphocytes % (Manual) Nucleated RBC % Seg Neutrophils # Seg Neutrophils # Man Lymphocytes # (Manual) Monocytes # (Manual) Eosinophils # (Manual) PT INR APTT D-Dimer Heparin Anti-Xa Level ABG pH 7.468 H POC ABG pCO2 51.5 H POC ABG pO2 ABG pO2 ABG HCO3 ABG O2 Saturation ABG Base Excess ABG Hemoglobin ABG Oxyhemoglobin ABG Sodium 130.2 L ABG Potassium ABG Chloride 91.0 L ABG Glucose 210 H Oxyhemoglobin Carboxyhemoglobin 1.6 H Sodium Potassium Chloride Carbon Dioxide BUN Creatinine Glucose POC Glucose 173 H 125 H Lactic Acid Calcium Magnesium Ferritin Total Bilirubin Direct Bilirubin AST ALT Alkaline Phosphatase Lactate Dehydrogenase C-Reactive Protein Total Protein Albumin Triglycerides Lipase Arterial Blood Glucose 210 H Arterial Blood Ionized Calcium Urine WBC (Auto) Coronavirus (PCR) SARS-CoV-2 IgG Ab Crossmatch 07/03/20 07/03/20 07/03/20 11:43 12:20 12:20 WBC 16.5 H RBC 3.13 L Hgb 10.4 L Hct 31.8 L MCV 102 H MCH 33 H MCHC RDW 17.2 H Lymph % (Auto) [place] % (Auto) Lymph # (Auto) [place] # (Auto) Baso # (Auto) Seg Neutrophils % Seg Neuts % (Manual) Lymphocytes % (Manual) Nucleated RBC % Seg Neutrophils # Seg Neutrophils # Man Lymphocytes # (Manual) Monocytes # (Manual) Eosinophils # (Manual) PT INR APTT D-Dimer Heparin Anti-Xa Level ABG pH POC ABG pCO2 POC ABG pO2 ABG pO2 ABG HCO3 ABG O2 Saturation ABG Base Excess ABG Hemoglobin ABG Oxyhemoglobin ABG Sodium ABG Potassium ABG Chloride ABG Glucose Oxyhemoglobin Carboxyhemoglobin Sodium 132 L Potassium Chloride 88.5 L Carbon Dioxide 37 H BUN Creatinine 0.3 L Glucose 230 H POC Glucose 223 H Lactic Acid Calcium Magnesium Ferritin Total Bilirubin Direct Bilirubin AST ALT Alkaline Phosphatase Lactate Dehydrogenase C-Reactive Protein Total Protein Albumin Triglycerides Lipase Arterial Blood Glucose Arterial Blood Ionized Calcium Urine WBC (Auto) Coronavirus (PCR) SARS-CoV-2 IgG Ab Crossmatch 07/03/20 07/03/20 07/04/20 17:24 21:41 00:54 WBC RBC Hgb Hct MCV MCH MCHC RDW Lymph % (Auto) [place] % (Auto) Lymph # (Auto) [place] # (Auto) Baso # (Auto) Seg Neutrophils % Seg Neuts % (Manual) Lymphocytes % (Manual) Nucleated RBC % Seg Neutrophils # Seg Neutrophils # Man Lymphocytes # (Manual) Monocytes # (Manual) Eosinophils # (Manual) PT INR APTT D-Dimer Heparin Anti-Xa Level ABG pH POC ABG pCO2 POC ABG pO2 ABG pO2 ABG HCO3 ABG O2 Saturation ABG Base Excess ABG Hemoglobin ABG Oxyhemoglobin ABG Sodium ABG Potassium ABG Chloride ABG Glucose Oxyhemoglobin Carboxyhemoglobin Sodium Potassium Chloride Carbon Dioxide BUN Creatinine Glucose POC Glucose 163 H 220 H 195 H Lactic Acid Calcium Magnesium Ferritin Total Bilirubin Direct Bilirubin AST ALT Alkaline Phosphatase Lactate Dehydrogenase C-Reactive Protein Total Protein Albumin Triglycerides Lipase Arterial Blood Glucose Arterial Blood Ionized Calcium Urine WBC (Auto) Coronavirus (PCR) SARS-CoV-2 IgG Ab Crossmatch 07/04/20 07/04/20 07/04/20 03:25 04:00 04:00 WBC 14.9 H RBC 2.91 L Hgb 9.5 L Hct 29.2 L MCV 100 H MCH 33 H MCHC RDW 16.7 H Lymph % (Auto) 8.4 L [place] % (Auto) Lymph # (Auto) [place] # (Auto) 1.1 H Baso # (Auto) Seg Neutrophils % 84.2 H Seg Neuts % (Manual) Lymphocytes % (Manual) Nucleated RBC % Seg Neutrophils # 12.6 H Seg Neutrophils # Man Lymphocytes # (Manual) Monocytes # (Manual) Eosinophils # (Manual) PT INR APTT D-Dimer Heparin Anti-Xa Level ABG pH 7.474 H POC ABG pCO2 POC ABG pO2 51.8 L ABG pO2 ABG HCO3 ABG O2 Saturation ABG Base Excess ABG Hemoglobin ABG Oxyhemoglobin ABG Sodium ABG Potassium ABG Chloride ABG Glucose Oxyhemoglobin Carboxyhemoglobin Sodium Potassium 3.4 L Chloride 92.1 L Carbon Dioxide 34 H BUN Creatinine 0.3 L Glucose 173 H POC Glucose Lactic Acid Calcium Magnesium Ferritin Total Bilirubin Direct Bilirubin AST ALT Alkaline Phosphatase Lactate Dehydrogenase C-Reactive Protein Total Protein Albumin Triglycerides Lipase Arterial Blood Glucose Arterial Blood Ionized Calcium Urine WBC (Auto) Coronavirus (PCR) SARS-CoV-2 IgG Ab Crossmatch 07/04/20 07/04/20 07/04/20 06:18 11:39 17:18 WBC RBC Hgb Hct MCV MCH MCHC RDW Lymph % (Auto) [place] % (Auto) Lymph # (Auto) [place] # (Auto) Baso # (Auto) Seg Neutrophils % Seg Neuts % (Manual) Lymphocytes % (Manual) Nucleated RBC % Seg Neutrophils # Seg Neutrophils # Man Lymphocytes # (Manual) Monocytes # (Manual) Eosinophils # (Manual) PT INR APTT D-Dimer Heparin Anti-Xa Level ABG pH POC ABG pCO2 POC ABG pO2 ABG pO2 ABG HCO3 ABG O2 Saturation ABG Base Excess ABG Hemoglobin ABG Oxyhemoglobin ABG Sodium ABG Potassium ABG Chloride ABG Glucose Oxyhemoglobin Carboxyhemoglobin Sodium Potassium Chloride Carbon Dioxide BUN Creatinine Glucose POC Glucose 158 H 257 H 148 H Lactic Acid Calcium Magnesium Ferritin Total Bilirubin Direct Bilirubin AST ALT Alkaline Phosphatase Lactate Dehydrogenase C-Reactive Protein Total Protein Albumin Triglycerides Lipase Arterial Blood Glucose Arterial Blood Ionized Calcium Urine WBC (Auto) Coronavirus (PCR) SARS-CoV-2 IgG Ab Crossmatch 07/04/20 07/05/20 07/05/20 23:23 03:13 05:18 WBC 13.3 H RBC 2.90 L Hgb 9.8 L Hct 29.3 L MCV 101 H MCH 34 H MCHC RDW 17.0 H Lymph % (Auto) 11.1 L [place] % (Auto) Lymph # (Auto) [place] # (Auto) Baso # (Auto) Seg Neutrophils % 82.3 H Seg Neuts % (Manual) Lymphocytes % (Manual) Nucleated RBC % Seg Neutrophils # 10.9 H Seg Neutrophils # Man Lymphocytes # (Manual) Monocytes # (Manual) Eosinophils # (Manual) PT INR APTT D-Dimer Heparin Anti-Xa Level ABG pH 7.48 H POC ABG pCO2 52.0 H POC ABG pO2 ABG pO2 ABG HCO3 ABG O2 Saturation ABG Base Excess ABG Hemoglobin 10.0 L ABG Oxyhemoglobin ABG Sodium 131.0 L ABG Potassium 3.3 L ABG Chloride 93.0 L ABG Glucose 177 H Oxyhemoglobin Carboxyhemoglobin Sodium Potassium Chloride Carbon Dioxide BUN Creatinine Glucose POC Glucose 227 H Lactic Acid Calcium Magnesium Ferritin Total Bilirubin Direct Bilirubin AST ALT Alkaline Phosphatase Lactate Dehydrogenase C-Reactive Protein Total Protein Albumin Triglycerides Lipase Arterial Blood Glucose 177 H Arterial Blood Ionized Calcium Urine WBC (Auto) Coronavirus (PCR) SARS-CoV-2 IgG Ab Crossmatch 07/05/20 07/05/20 07/05/20 05:18 05:25 05:57 WBC RBC Hgb Hct MCV MCH MCHC RDW Lymph % (Auto) [place] % (Auto) Lymph # (Auto) [place] # (Auto) Baso # (Auto) Seg Neutrophils % Seg Neuts % (Manual) Lymphocytes % (Manual) Nucleated RBC % Seg Neutrophils # Seg Neutrophils # Man Lymphocytes # (Manual) Monocytes # (Manual) Eosinophils # (Manual) PT INR APTT D-Dimer Heparin Anti-Xa Level ABG pH 7.519 H POC ABG pCO2 POC ABG pO2 198.6 H ABG pO2 ABG HCO3 ABG O2 Saturation ABG Base Excess ABG Hemoglobin 10.3 L ABG Oxyhemoglobin 98.7 H ABG Sodium 133.6 L ABG Potassium 3.3 L ABG Chloride 93.0 L ABG Glucose 175 H Oxyhemoglobin Carboxyhemoglobin Sodium Potassium 3.4 L Chloride 92.5 L Carbon Dioxide 36 H BUN Creatinine 0.3 L Glucose 148 H POC Glucose 170 H Lactic Acid Calcium Magnesium Ferritin Total Bilirubin Direct Bilirubin AST ALT Alkaline Phosphatase Lactate Dehydrogenase C-Reactive Protein Total Protein Albumin Triglycerides Lipase Arterial Blood Glucose 175 H Arterial Blood Ionized Calcium Urine WBC (Auto) Coronavirus (PCR) SARS-CoV-2 IgG Ab Crossmatch 07/05/20 07/05/20 07/06/20 11:37 18:39 00:04 WBC RBC Hgb Hct MCV MCH MCHC RDW Lymph % (Auto) [place] % (Auto) Lymph # (Auto) [place] # (Auto) Baso # (Auto) Seg Neutrophils % Seg Neuts % (Manual) Lymphocytes % (Manual) Nucleated RBC % Seg Neutrophils # Seg Neutrophils # Man Lymphocytes # (Manual) Monocytes # (Manual) Eosinophils # (Manual) PT INR APTT D-Dimer Heparin Anti-Xa Level ABG pH POC ABG pCO2 POC ABG pO2 ABG pO2 ABG HCO3 ABG O2 Saturation ABG Base Excess ABG Hemoglobin ABG Oxyhemoglobin ABG Sodium ABG Potassium ABG Chloride ABG Glucose Oxyhemoglobin Carboxyhemoglobin Sodium Potassium Chloride Carbon Dioxide BUN Creatinine Glucose POC Glucose 195 H 200 H 222 H Lactic Acid Calcium Magnesium Ferritin Total Bilirubin Direct Bilirubin AST ALT Alkaline Phosphatase Lactate Dehydrogenase C-Reactive Protein Total Protein Albumin Triglycerides Lipase Arterial Blood Glucose Arterial Blood Ionized Calcium Urine WBC (Auto) Coronavirus (PCR) SARS-CoV-2 IgG Ab Crossmatch 07/06/20 07/06/20 07/06/20 05:25 06:52 06:52 WBC 15.8 H RBC 3.17 L Hgb 10.4 L Hct 31.5 L MCV 99 H MCH 33 H MCHC RDW 17.0 H Lymph % (Auto) [place] % (Auto) Lymph # (Auto) [place] # (Auto) Baso # (Auto) Seg Neutrophils % Seg Neuts % (Manual) Lymphocytes % (Manual) Nucleated RBC % Seg Neutrophils # Seg Neutrophils # Man Lymphocytes # (Manual) Monocytes # (Manual) Eosinophils # (Manual) PT INR APTT D-Dimer Heparin Anti-Xa Level ABG pH POC ABG pCO2 POC ABG pO2 ABG pO2 ABG HCO3 ABG O2 Saturation ABG Base Excess ABG Hemoglobin ABG Oxyhemoglobin ABG Sodium ABG Potassium ABG Chloride ABG Glucose Oxyhemoglobin Carboxyhemoglobin Sodium 135 L Potassium 3.4 L Chloride 91.9 L Carbon Dioxide 38 H BUN Creatinine 0.3 L Glucose 189 H POC Glucose 165 H Lactic Acid Calcium Magnesium Ferritin Total Bilirubin Direct Bilirubin AST ALT Alkaline Phosphatase Lactate Dehydrogenase C-Reactive Protein Total Protein Albumin Triglycerides Lipase Arterial Blood Glucose Arterial Blood Ionized Calcium Urine WBC (Auto) Coronavirus (PCR) SARS-CoV-2 IgG Ab Crossmatch 07/06/20 07/06/20 07/06/20 13:01 18:04 23:08 WBC RBC Hgb Hct MCV MCH MCHC RDW Lymph % (Auto) [place] % (Auto) Lymph # (Auto) [place] # (Auto) Baso # (Auto) Seg Neutrophils % Seg Neuts % (Manual) Lymphocytes % (Manual) Nucleated RBC % Seg Neutrophils # Seg Neutrophils # Man Lymphocytes # (Manual) Monocytes # (Manual) Eosinophils # (Manual) PT INR APTT D-Dimer Heparin Anti-Xa Level ABG pH POC ABG pCO2 POC ABG pO2 ABG pO2 ABG HCO3 ABG O2 Saturation ABG Base Excess ABG Hemoglobin ABG Oxyhemoglobin ABG Sodium ABG Potassium ABG Chloride ABG Glucose Oxyhemoglobin Carboxyhemoglobin Sodium Potassium Chloride Carbon Dioxide BUN Creatinine Glucose POC Glucose 195 H 169 H 173 H Lactic Acid Calcium Magnesium Ferritin Total Bilirubin Direct Bilirubin AST ALT Alkaline Phosphatase Lactate Dehydrogenase C-Reactive Protein Total Protein Albumin Triglycerides Lipase Arterial Blood Glucose Arterial Blood Ionized Calcium Urine WBC (Auto) Coronavirus (PCR) SARS-CoV-2 IgG Ab Crossmatch 07/07/20 07/07/20 07/07/20 05:35 05:35 05:39 WBC 17.6 H RBC 3.16 L Hgb 10.4 L Hct 31.5 L MCV 100 H MCH 33 H MCHC RDW 16.7 H Lymph % (Auto) 11.1 L [place] % (Auto) Lymph # (Auto) [place] # (Auto) 1.0 H Baso # (Auto) Seg Neutrophils % 83.0 H Seg Neuts % (Manual) Lymphocytes % (Manual) Nucleated RBC % Seg Neutrophils # 14.6 H Seg Neutrophils # Man Lymphocytes # (Manual) Monocytes # (Manual) Eosinophils # (Manual) PT INR APTT D-Dimer Heparin Anti-Xa Level ABG pH POC ABG pCO2 POC ABG pO2 ABG pO2 ABG HCO3 ABG O2 Saturation ABG Base Excess ABG Hemoglobin ABG Oxyhemoglobin ABG Sodium ABG Potassium ABG Chloride ABG Glucose Oxyhemoglobin Carboxyhemoglobin Sodium 135 L Potassium 3.4 L Chloride 94.3 L Carbon Dioxide 32 H BUN Creatinine 0.2 L Glucose 240 H POC Glucose 191 H Lactic Acid Calcium Magnesium Ferritin Total Bilirubin Direct Bilirubin AST ALT Alkaline Phosphatase Lactate Dehydrogenase C-Reactive Protein Total Protein Albumin Triglycerides Lipase Arterial Blood Glucose Arterial Blood Ionized Calcium Urine WBC (Auto) Coronavirus (PCR) SARS-CoV-2 IgG Ab Crossmatch 07/07/20 07/07/20 07/07/20 12:08 16:39 23:41 WBC RBC Hgb Hct MCV MCH MCHC RDW Lymph % (Auto) [place] % (Auto) Lymph # (Auto) [place] # (Auto) Baso # (Auto) Seg Neutrophils % Seg Neuts % (Manual) Lymphocytes % (Manual) Nucleated RBC % Seg Neutrophils # Seg Neutrophils # Man Lymphocytes # (Manual) Monocytes # (Manual) Eosinophils # (Manual) PT INR APTT D-Dimer Heparin Anti-Xa Level ABG pH POC ABG pCO2 POC ABG pO2 ABG pO2 ABG HCO3 ABG O2 Saturation ABG Base Excess ABG Hemoglobin ABG Oxyhemoglobin ABG Sodium ABG Potassium ABG Chloride ABG Glucose Oxyhemoglobin Carboxyhemoglobin Sodium Potassium Chloride Carbon Dioxide BUN Creatinine Glucose POC Glucose 248 H 209 H 231 H Lactic Acid Calcium Magnesium Ferritin Total Bilirubin Direct Bilirubin AST ALT Alkaline Phosphatase Lactate Dehydrogenase C-Reactive Protein Total Protein Albumin Triglycerides Lipase Arterial Blood Glucose Arterial Blood Ionized Calcium Urine WBC (Auto) Coronavirus (PCR) SARS-CoV-2 IgG Ab Crossmatch 07/08/20 07/08/20 07/08/20 04:58 04:58 05:38 WBC 21.0 H RBC 2.86 L Hgb 9.2 L Hct 28.6 L MCV 100 H MCH MCHC RDW 16.7 H Lymph % (Auto) [place] % (Auto) Lymph # (Auto) [place] # (Auto) Baso # (Auto) Seg Neutrophils % Seg Neuts % (Manual) 93.0 H Lymphocytes % (Manual) 3.0 L Nucleated RBC % Seg Neutrophils # Seg Neutrophils # Man 19.5 H Lymphocytes # (Manual) 0.6 L Monocytes # (Manual) Eosinophils # (Manual) PT INR APTT D-Dimer Heparin Anti-Xa Level ABG pH POC ABG pCO2 POC ABG pO2 ABG pO2 ABG HCO3 ABG O2 Saturation ABG Base Excess ABG Hemoglobin ABG Oxyhemoglobin ABG Sodium ABG Potassium ABG Chloride ABG Glucose Oxyhemoglobin Carboxyhemoglobin Sodium Potassium 3.0 L Chloride Carbon Dioxide BUN Creatinine 0.2 L Glucose 201 H POC Glucose 161 H Lactic Acid Calcium 7.9 L D Magnesium Ferritin Total Bilirubin Direct Bilirubin AST ALT Alkaline Phosphatase Lactate Dehydrogenase C-Reactive Protein Total Protein Albumin Triglycerides Lipase Arterial Blood Glucose Arterial Blood Ionized Calcium Urine WBC (Auto) Coronavirus (PCR) SARS-CoV-2 IgG Ab Crossmatch 12/07/08/20 07/08/20 12:19 16:26 Unknown WBC RBC Hgb Hct MCV MCH MCHC RDW Lymph % (Auto) [place] % (Auto) Lymph # (Auto) [place] # (Auto) Baso # (Auto) Seg Neutrophils % Seg Neuts % (Manual) Lymphocytes % (Manual) Nucleated RBC % Seg Neutrophils # Seg Neutrophils # Man Lymphocytes # (Manual) Monocytes # (Manual) Eosinophils # (Manual) PT INR APTT D-Dimer Heparin Anti-Xa Level ABG pH POC ABG pCO2 POC ABG pO2 ABG pO2 75.3 L ABG HCO3 34.3 H ABG O2 Saturation ABG Base Excess 8.7 H ABG Hemoglobin 10.2 L ABG Oxyhemoglobin ABG Sodium ABG Potassium ABG Chloride ABG Glucose Oxyhemoglobin 93.7 L Carboxyhemoglobin Sodium Potassium Chloride Carbon Dioxide BUN Creatinine Glucose POC Glucose 152 H 173 H Lactic Acid Calcium Magnesium Ferritin Total Bilirubin Direct Bilirubin AST ALT Alkaline Phosphatase Lactate Dehydrogenase C-Reactive Protein Total Protein Albumin Triglycerides Lipase Arterial Blood Glucose Arterial Blood Ionized Calcium Urine WBC (Auto) Coronavirus (PCR) SARS-CoV-2 IgG Ab Crossmatch 07/09/20 07/09/20 07/09/20 00:01 06:00 11:55 WBC RBC Hgb Hct MCV MCH MCHC RDW Lymph % (Auto) [place] % (Auto) Lymph # (Auto) [place] # (Auto) Baso # (Auto) Seg Neutrophils % Seg Neuts % (Manual) Lymphocytes % (Manual) Nucleated RBC % Seg Neutrophils # Seg Neutrophils # Man Lymphocytes # (Manual) Monocytes # (Manual) Eosinophils # (Manual) PT INR APTT D-Dimer Heparin Anti-Xa Level ABG pH POC ABG pCO2 POC ABG pO2 ABG pO2 ABG HCO3 ABG O2 Saturation ABG Base Excess ABG Hemoglobin ABG Oxyhemoglobin ABG Sodium ABG Potassium ABG Chloride ABG Glucose Oxyhemoglobin Carboxyhemoglobin Sodium Potassium Chloride Carbon Dioxide BUN Creatinine Glucose POC Glucose 207 H 141 H 228 H Lactic Acid Calcium Magnesium Ferritin Total Bilirubin Direct Bilirubin AST ALT Alkaline Phosphatase Lactate Dehydrogenase C-Reactive Protein Total Protein Albumin Triglycerides Lipase Arterial Blood Glucose Arterial Blood Ionized Calcium Urine WBC (Auto) Coronavirus (PCR) SARS-CoV-2 IgG Ab Crossmatch 07/09/20 07/09/20 07/09/20 16:47 23:53 Unknown WBC RBC Hgb Hct MCV MCH MCHC RDW Lymph % (Auto) [place] % (Auto) Lymph # (Auto) [place] # (Auto) Baso # (Auto) Seg Neutrophils % Seg Neuts % (Manual) Lymphocytes % (Manual) Nucleated RBC % Seg Neutrophils # Seg Neutrophils # Man Lymphocytes # (Manual) Monocytes # (Manual) Eosinophils # (Manual) PT INR APTT D-Dimer Heparin Anti-Xa Level ABG pH POC ABG pCO2 POC ABG pO2 ABG pO2 ABG HCO3 ABG O2 Saturation ABG Base Excess ABG Hemoglobin ABG Oxyhemoglobin ABG Sodium ABG Potassium ABG Chloride ABG Glucose Oxyhemoglobin Carboxyhemoglobin Sodium 132 L Potassium Chloride 92.7 L Carbon Dioxide 35 H BUN Creatinine 0.2 L Glucose 234 H POC Glucose 136 H 219 H Lactic Acid Calcium Magnesium Ferritin Total Bilirubin Direct Bilirubin AST ALT Alkaline Phosphatase Lactate Dehydrogenase C-Reactive Protein Total Protein Albumin Triglycerides Lipase Arterial Blood Glucose Arterial Blood Ionized Calcium Urine WBC (Auto) Coronavirus (PCR) SARS-CoV-2 IgG Ab Crossmatch 07/10/20 07/10/20 07/10/20 05:20 12:05 18:38 WBC RBC Hgb Hct MCV MCH MCHC RDW Lymph % (Auto) [place] % (Auto) Lymph # (Auto) [place] # (Auto) Baso # (Auto) Seg Neutrophils % Seg Neuts % (Manual) Lymphocytes % (Manual) Nucleated RBC % Seg Neutrophils # Seg Neutrophils # Man Lymphocytes # (Manual) Monocytes # (Manual) Eosinophils # (Manual) PT INR APTT D-Dimer Heparin Anti-Xa Level ABG pH POC ABG pCO2 POC ABG pO2 ABG pO2 ABG HCO3 ABG O2 Saturation ABG Base Excess ABG Hemoglobin ABG Oxyhemoglobin ABG Sodium ABG Potassium ABG Chloride ABG Glucose Oxyhemoglobin Carboxyhemoglobin Sodium Potassium Chloride Carbon Dioxide BUN Creatinine Glucose POC Glucose 221 H 174 H 152 H Lactic Acid Calcium Magnesium Ferritin Total Bilirubin Direct Bilirubin AST ALT Alkaline Phosphatase Lactate Dehydrogenase C-Reactive Protein Total Protein Albumin Triglycerides Lipase Arterial Blood Glucose Arterial Blood Ionized Calcium Urine WBC (Auto) Coronavirus (PCR) SARS-CoV-2 IgG Ab Crossmatch 07/11/20 07/11/20 07/11/20 00:16 05:42 08:13 WBC 11.9 H RBC 3.13 L Hgb 10.2 L Hct 31.2 L MCV 100 H MCH 33 H MCHC RDW 16.4 H Lymph % (Auto) [place] % (Auto) 9.3 H Lymph # (Auto) [place] # (Auto) 1.1 H Baso # (Auto) Seg Neutrophils % 72.7 H Seg Neuts % (Manual) Lymphocytes % (Manual) Nucleated RBC % Seg Neutrophils # 8.7 H Seg Neutrophils # Man Lymphocytes # (Manual) Monocytes # (Manual) Eosinophils # (Manual) PT INR APTT D-Dimer Heparin Anti-Xa Level ABG pH POC ABG pCO2 POC ABG pO2 ABG pO2 ABG HCO3 ABG O2 Saturation ABG Base Excess ABG Hemoglobin ABG Oxyhemoglobin ABG Sodium ABG Potassium ABG Chloride ABG Glucose Oxyhemoglobin Carboxyhemoglobin Sodium Potassium Chloride Carbon Dioxide BUN Creatinine Glucose POC Glucose 170 H 186 H Lactic Acid Calcium Magnesium Ferritin Total Bilirubin Direct Bilirubin AST ALT Alkaline Phosphatase Lactate Dehydrogenase C-Reactive Protein Total Protein Albumin Triglycerides Lipase Arterial Blood Glucose Arterial Blood Ionized Calcium Urine WBC (Auto) Coronavirus (PCR) SARS-CoV-2 IgG Ab Crossmatch 07/11/20 07/11/20 07/11/20 08:13 11:35 18:07 WBC RBC Hgb Hct MCV MCH MCHC RDW Lymph % (Auto) [place] % (Auto) Lymph # (Auto) [place] # (Auto) Baso # (Auto) Seg Neutrophils % Seg Neuts % (Manual) Lymphocytes % (Manual) Nucleated RBC % Seg Neutrophils # Seg Neutrophils # Man Lymphocytes # (Manual) Monocytes # (Manual) Eosinophils # (Manual) PT INR APTT D-Dimer Heparin Anti-Xa Level ABG pH POC ABG pCO2 POC ABG pO2 ABG pO2 ABG HCO3 ABG O2 Saturation ABG Base Excess ABG Hemoglobin ABG Oxyhemoglobin ABG Sodium ABG Potassium ABG Chloride ABG Glucose Oxyhemoglobin Carboxyhemoglobin Sodium 135 L Potassium Chloride 92.8 L Carbon Dioxide 38 H BUN Creatinine 0.2 L Glucose 132 H POC Glucose 129 H 156 H Lactic Acid Calcium Magnesium Ferritin Total Bilirubin Direct Bilirubin AST ALT Alkaline Phosphatase Lactate Dehydrogenase C-Reactive Protein Total Protein Albumin Triglycerides Lipase Arterial Blood Glucose Arterial Blood Ionized Calcium Urine WBC (Auto) Coronavirus (PCR) SARS-CoV-2 IgG Ab Crossmatch 07/11/20 07/11/20 07/12/20 18:36 23:18 05:28 WBC RBC Hgb Hct MCV MCH MCHC RDW Lymph % (Auto) [place] % (Auto) Lymph # (Auto) [place] # (Auto) Baso # (Auto) Seg Neutrophils % Seg Neuts % (Manual) Lymphocytes % (Manual) Nucleated RBC % Seg Neutrophils # Seg Neutrophils # Man Lymphocytes # (Manual) Monocytes # (Manual) Eosinophils # (Manual) PT INR APTT D-Dimer Heparin Anti-Xa Level ABG pH POC ABG pCO2 POC ABG pO2 70.9 L ABG pO2 ABG HCO3 ABG O2 Saturation ABG Base Excess ABG Hemoglobin 10.8 L ABG Oxyhemoglobin 92.5 L ABG Sodium 131.8 L ABG Potassium 3.2 L ABG Chloride 91.0 L ABG Glucose 181 H Oxyhemoglobin Carboxyhemoglobin Sodium Potassium Chloride Carbon Dioxide BUN Creatinine Glucose POC Glucose 189 H 190 H Lactic Acid Calcium Magnesium Ferritin Total Bilirubin Direct Bilirubin AST ALT Alkaline Phosphatase Lactate Dehydrogenase C-Reactive Protein Total Protein Albumin Triglycerides Lipase Arterial Blood Glucose 181 H Arterial Blood Ionized Calcium Urine WBC (Auto) Coronavirus (PCR) SARS-CoV-2 IgG Ab Crossmatch 07/12/20 07/12/20 07/12/20 11:33 17:45 23:59 WBC RBC Hgb Hct MCV MCH MCHC RDW Lymph % (Auto) [place] % (Auto) Lymph # (Auto) [place] # (Auto) Baso # (Auto) Seg Neutrophils % Seg Neuts % (Manual) Lymphocytes % (Manual) Nucleated RBC % Seg Neutrophils # Seg Neutrophils # Man Lymphocytes # (Manual) Monocytes # (Manual) Eosinophils # (Manual) PT INR APTT D-Dimer Heparin Anti-Xa Level ABG pH POC ABG pCO2 POC ABG pO2 ABG pO2 ABG HCO3 ABG O2 Saturation ABG Base Excess ABG Hemoglobin ABG Oxyhemoglobin ABG Sodium ABG Potassium ABG Chloride ABG Glucose Oxyhemoglobin Carboxyhemoglobin Sodium Potassium Chloride Carbon Dioxide BUN Creatinine Glucose POC Glucose 151 H 211 H 169 H Lactic Acid Calcium Magnesium Ferritin Total Bilirubin Direct Bilirubin AST ALT Alkaline Phosphatase Lactate Dehydrogenase C-Reactive Protein Total Protein Albumin Triglycerides Lipase Arterial Blood Glucose Arterial Blood Ionized Calcium Urine WBC (Auto) Coronavirus (PCR) SARS-CoV-2 IgG Ab Crossmatch 07/13/20 07/13/20 07/13/20 05:44 08:31 08:31 WBC 21.3 H RBC 2.92 L Hgb 9.7 L Hct 28.7 L MCV 98 H MCH 33 H MCHC RDW 16.8 H Lymph % (Auto) [place] % (Auto) Lymph # (Auto) [place] # (Auto) Baso # (Auto) Seg Neutrophils % Seg Neuts % (Manual) 96.0 H Lymphocytes % (Manual) 2.0 L Nucleated RBC % Seg Neutrophils # Seg Neutrophils # Man 20.4 H Lymphocytes # (Manual) 0.4 L Monocytes # (Manual) Eosinophils # (Manual) PT INR APTT D-Dimer Heparin Anti-Xa Level ABG pH POC ABG pCO2 POC ABG pO2 ABG pO2 ABG HCO3 ABG O2 Saturation ABG Base Excess ABG Hemoglobin ABG Oxyhemoglobin ABG Sodium ABG Potassium ABG Chloride ABG Glucose Oxyhemoglobin Carboxyhemoglobin Sodium Potassium 2.9 L* D Chloride 94.4 L Carbon Dioxide 37 H BUN Creatinine 0.2 L Glucose 166 H POC Glucose 122 H Lactic Acid Calcium Magnesium Ferritin Total Bilirubin Direct Bilirubin AST ALT Alkaline Phosphatase Lactate Dehydrogenase C-Reactive Protein Total Protein Albumin Triglycerides Lipase Arterial Blood Glucose Arterial Blood Ionized Calcium Urine WBC (Auto) Coronavirus (PCR) SARS-CoV-2 IgG Ab Crossmatch 07/13/20 07/13/20 07/13/20 11:54 13:52 17:40 WBC RBC Hgb Hct MCV MCH MCHC RDW Lymph % (Auto) [place] % (Auto) Lymph # (Auto) [place] # (Auto) Baso # (Auto) Seg Neutrophils % Seg Neuts % (Manual) Lymphocytes % (Manual) Nucleated RBC % Seg Neutrophils # Seg Neutrophils # Man Lymphocytes # (Manual) Monocytes # (Manual) Eosinophils # (Manual) PT INR APTT D-Dimer Heparin Anti-Xa Level ABG pH 7.477 H POC ABG pCO2 54.4 H POC ABG pO2 126.8 H ABG pO2 ABG HCO3 ABG O2 Saturation ABG Base Excess ABG Hemoglobin 11.5 L ABG Oxyhemoglobin ABG Sodium ABG Potassium 3.2 L ABG Chloride 92.0 L ABG Glucose 169 H Oxyhemoglobin Carboxyhemoglobin Sodium Potassium Chloride Carbon Dioxide BUN Creatinine Glucose POC Glucose 132 H 128 H Lactic Acid Calcium Magnesium Ferritin Total Bilirubin Direct Bilirubin AST ALT Alkaline Phosphatase Lactate Dehydrogenase C-Reactive Protein Total Protein Albumin Triglycerides Lipase Arterial Blood Glucose 169 H Arterial Blood Ionized Calcium Urine WBC (Auto) Coronavirus (PCR) SARS-CoV-2 IgG Ab Crossmatch 07/14/20 07/14/20 07/15/20 07:49 17:09 05:27 WBC RBC Hgb Hct MCV MCH MCHC RDW Lymph % (Auto) [place] % (Auto) Lymph # (Auto) [place] # (Auto) Baso # (Auto) Seg Neutrophils % Seg Neuts % (Manual) Lymphocytes % (Manual) Nucleated RBC % Seg Neutrophils # Seg Neutrophils # Man Lymphocytes # (Manual) Monocytes # (Manual) Eosinophils # (Manual) PT INR APTT D-Dimer Heparin Anti-Xa Level ABG pH POC ABG pCO2 POC ABG pO2 ABG pO2 ABG HCO3 ABG O2 Saturation ABG Base Excess ABG Hemoglobin ABG Oxyhemoglobin ABG Sodium ABG Potassium ABG Chloride ABG Glucose Oxyhemoglobin Carboxyhemoglobin Sodium Potassium 2.7 L* Chloride 94.0 L Carbon Dioxide 37 H BUN Creatinine 0.3 L Glucose 110 H POC Glucose 152 H 61 L Lactic Acid Calcium Magnesium Ferritin Total Bilirubin Direct Bilirubin AST ALT Alkaline Phosphatase Lactate Dehydrogenase C-Reactive Protein Total Protein Albumin Triglycerides Lipase Arterial Blood Glucose Arterial Blood Ionized Calcium Urine WBC (Auto) Coronavirus (PCR) SARS-CoV-2 IgG Ab Crossmatch 07/15/20 07/15/20 07/15/20 05:31 11:49 17:18 WBC RBC Hgb Hct MCV MCH MCHC RDW Lymph % (Auto) [place] % (Auto) Lymph # (Auto) [place] # (Auto) Baso # (Auto) Seg Neutrophils % Seg Neuts % (Manual) Lymphocytes % (Manual) Nucleated RBC % Seg Neutrophils # Seg Neutrophils # Man Lymphocytes # (Manual) Monocytes # (Manual) Eosinophils # (Manual) PT INR APTT D-Dimer Heparin Anti-Xa Level ABG pH POC ABG pCO2 POC ABG pO2 ABG pO2 ABG HCO3 ABG O2 Saturation ABG Base Excess ABG Hemoglobin ABG Oxyhemoglobin ABG Sodium ABG Potassium ABG Chloride ABG Glucose Oxyhemoglobin Carboxyhemoglobin Sodium Potassium 3.2 L Chloride 91.2 L Carbon Dioxide 33 H BUN Creatinine 0.3 L Glucose 139 H POC Glucose 148 H 196 H Lactic Acid Calcium Magnesium Ferritin Total Bilirubin Direct Bilirubin AST ALT Alkaline Phosphatase Lactate Dehydrogenase C-Reactive Protein Total Protein Albumin Triglycerides Lipase Arterial Blood Glucose Arterial Blood Ionized Calcium Urine WBC (Auto) Coronavirus (PCR) SARS-CoV-2 IgG Ab Crossmatch 07/15/20 07/16/20 07/16/20 23:08 05:18 05:19 WBC 11.3 H RBC 3.10 L Hgb 10.0 L Hct 30.3 L MCV 98 H MCH MCHC RDW 16.3 H Lymph % (Auto) [place] % (Auto) Lymph # (Auto) [place] # (Auto) Baso # (Auto) Seg Neutrophils % Seg Neuts % (Manual) Lymphocytes % (Manual) Nucleated RBC % Seg Neutrophils # Seg Neutrophils # Man Lymphocytes # (Manual) Monocytes # (Manual) Eosinophils # (Manual) PT INR APTT D-Dimer Heparin Anti-Xa Level ABG pH POC ABG pCO2 POC ABG pO2 ABG pO2 ABG HCO3 ABG O2 Saturation ABG Base Excess ABG Hemoglobin ABG Oxyhemoglobin ABG Sodium ABG Potassium ABG Chloride ABG Glucose Oxyhemoglobin Carboxyhemoglobin Sodium Potassium Chloride Carbon Dioxide BUN Creatinine Glucose POC Glucose 131 H 160 H Lactic Acid Calcium Magnesium Ferritin Total Bilirubin Direct Bilirubin AST ALT Alkaline Phosphatase Lactate Dehydrogenase C-Reactive Protein Total Protein Albumin Triglycerides Lipase Arterial Blood Glucose Arterial Blood Ionized Calcium Urine WBC (Auto) Coronavirus (PCR) SARS-CoV-2 IgG Ab Crossmatch 07/16/20 07/16/20 07/16/20 05:19 11:45 17:17 WBC RBC Hgb Hct MCV MCH MCHC RDW Lymph % (Auto) [place] % (Auto) Lymph # (Auto) [place] # (Auto) Baso # (Auto) Seg Neutrophils % Seg Neuts % (Manual) Lymphocytes % (Manual) Nucleated RBC % Seg Neutrophils # Seg Neutrophils # Man Lymphocytes # (Manual) Monocytes # (Manual) Eosinophils # (Manual) PT INR APTT D-Dimer Heparin Anti-Xa Level ABG pH POC ABG pCO2 POC ABG pO2 ABG pO2 ABG HCO3 ABG O2 Saturation ABG Base Excess ABG Hemoglobin ABG Oxyhemoglobin ABG Sodium ABG Potassium ABG Chloride ABG Glucose Oxyhemoglobin Carboxyhemoglobin Sodium 132 L Potassium 3.4 L Chloride 89.9 L Carbon Dioxide 39 H BUN Creatinine 0.3 L Glucose 174 H POC Glucose 169 H 143 H Lactic Acid Calcium Magnesium Ferritin Total Bilirubin Direct Bilirubin AST ALT Alkaline Phosphatase Lactate Dehydrogenase C-Reactive Protein Total Protein Albumin Triglycerides Lipase Arterial Blood Glucose Arterial Blood Ionized Calcium Urine WBC (Auto) Coronavirus (PCR) SARS-CoV-2 IgG Ab Crossmatch 07/16/20 07/17/20 07/17/20 23:54 05:32 11:26 WBC RBC Hgb Hct MCV MCH MCHC RDW Lymph % (Auto) [place] % (Auto) Lymph # (Auto) [place] # (Auto) Baso # (Auto) Seg Neutrophils % Seg Neuts % (Manual) Lymphocytes % (Manual) Nucleated RBC % Seg Neutrophils # Seg Neutrophils # Man Lymphocytes # (Manual) Monocytes # (Manual) Eosinophils # (Manual) PT INR APTT D-Dimer Heparin Anti-Xa Level ABG pH POC ABG pCO2 POC ABG pO2 ABG pO2 ABG HCO3 ABG O2 Saturation ABG Base Excess ABG Hemoglobin ABG Oxyhemoglobin ABG Sodium ABG Potassium ABG Chloride ABG Glucose Oxyhemoglobin Carboxyhemoglobin Sodium Potassium Chloride Carbon Dioxide BUN Creatinine Glucose POC Glucose 147 H 149 H 211 H Lactic Acid Calcium Magnesium Ferritin Total Bilirubin Direct Bilirubin AST ALT Alkaline Phosphatase Lactate Dehydrogenase C-Reactive Protein Total Protein Albumin Triglycerides Lipase Arterial Blood Glucose Arterial Blood Ionized Calcium Urine WBC (Auto) Coronavirus (PCR) SARS-CoV-2 IgG Ab Crossmatch 07/17/20 07/17/20 07/18/20 18:16 23:12 06:15 WBC RBC Hgb Hct MCV MCH MCHC RDW Lymph % (Auto) [place] % (Auto) Lymph # (Auto) [place] # (Auto) Baso # (Auto) Seg Neutrophils % Seg Neuts % (Manual) Lymphocytes % (Manual) Nucleated RBC % Seg Neutrophils # Seg Neutrophils # Man Lymphocytes # (Manual) Monocytes # (Manual) Eosinophils # (Manual) PT INR APTT D-Dimer Heparin Anti-Xa Level ABG pH POC ABG pCO2 POC ABG pO2 ABG pO2 ABG HCO3 ABG O2 Saturation ABG Base Excess ABG Hemoglobin ABG Oxyhemoglobin ABG Sodium ABG Potassium ABG Chloride ABG Glucose Oxyhemoglobin Carboxyhemoglobin Sodium Potassium Chloride Carbon Dioxide BUN Creatinine Glucose POC Glucose 161 H 136 H 108 H Lactic Acid Calcium Magnesium Ferritin Total Bilirubin Direct Bilirubin AST ALT Alkaline Phosphatase Lactate Dehydrogenase C-Reactive Protein Total Protein Albumin Triglycerides Lipase Arterial Blood Glucose Arterial Blood Ionized Calcium Urine WBC (Auto) Coronavirus (PCR) SARS-CoV-2 IgG Ab Crossmatch 07/18/20 07/18/20 07/18/20 08:47 08:47 11:50 WBC 17.7 H RBC 3.29 L Hgb 10.5 L Hct 31.8 L MCV 97 H MCH MCHC RDW 16.9 H Lymph % (Auto) [place] % (Auto) 8.6 H Lymph # (Auto) [place] # (Auto) 1.5 H Baso # (Auto) Seg Neutrophils % 74.6 H Seg Neuts % (Manual) Lymphocytes % (Manual) Nucleated RBC % Seg Neutrophils # 13.2 H Seg Neutrophils # Man Lymphocytes # (Manual) Monocytes # (Manual) Eosinophils # (Manual) PT INR APTT D-Dimer Heparin Anti-Xa Level ABG pH POC ABG pCO2 POC ABG pO2 ABG pO2 ABG HCO3 ABG O2 Saturation ABG Base Excess ABG Hemoglobin ABG Oxyhemoglobin ABG Sodium ABG Potassium ABG Chloride ABG Glucose Oxyhemoglobin Carboxyhemoglobin Sodium Potassium 2.8 L* Chloride 92.6 L Carbon Dioxide 40 H BUN Creatinine 0.3 L Glucose 177 H POC Glucose 178 H Lactic Acid Calcium Magnesium Ferritin Total Bilirubin Direct Bilirubin AST ALT Alkaline Phosphatase Lactate Dehydrogenase C-Reactive Protein Total Protein Albumin Triglycerides Lipase Arterial Blood Glucose Arterial Blood Ionized Calcium Urine WBC (Auto) Coronavirus (PCR) SARS-CoV-2 IgG Ab Crossmatch 07/18/20 07/18/20 07/19/20 17:18 23:33 05:22 WBC RBC Hgb Hct MCV MCH MCHC RDW Lymph % (Auto) [place] % (Auto) Lymph # (Auto) [place] # (Auto) Baso # (Auto) Seg Neutrophils % Seg Neuts % (Manual) Lymphocytes % (Manual) Nucleated RBC % Seg Neutrophils # Seg Neutrophils # Man Lymphocytes # (Manual) Monocytes # (Manual) Eosinophils # (Manual) PT INR APTT D-Dimer Heparin Anti-Xa Level ABG pH POC ABG pCO2 POC ABG pO2 ABG pO2 ABG HCO3 ABG O2 Saturation ABG Base Excess ABG Hemoglobin ABG Oxyhemoglobin ABG Sodium ABG Potassium ABG Chloride ABG Glucose Oxyhemoglobin Carboxyhemoglobin Sodium Potassium Chloride Carbon Dioxide BUN Creatinine Glucose POC Glucose 171 H 162 H 166 H Lactic Acid Calcium Magnesium Ferritin Total Bilirubin Direct Bilirubin AST ALT Alkaline Phosphatase Lactate Dehydrogenase C-Reactive Protein Total Protein Albumin Triglycerides Lipase Arterial Blood Glucose Arterial Blood Ionized Calcium Urine WBC (Auto) Coronavirus (PCR) SARS-CoV-2 IgG Ab Crossmatch 07/19/20 07/19/20 07/19/20 12:00 16:27 23:41 WBC RBC Hgb Hct MCV MCH MCHC RDW Lymph % (Auto) [place] % (Auto) Lymph # (Auto) [place] # (Auto) Baso # (Auto) Seg Neutrophils % Seg Neuts % (Manual) Lymphocytes % (Manual) Nucleated RBC % Seg Neutrophils # Seg Neutrophils # Man Lymphocytes # (Manual) Monocytes # (Manual) Eosinophils # (Manual) PT INR APTT D-Dimer Heparin Anti-Xa Level ABG pH POC ABG pCO2 POC ABG pO2 ABG pO2 ABG HCO3 ABG O2 Saturation ABG Base Excess ABG Hemoglobin ABG Oxyhemoglobin ABG Sodium ABG Potassium ABG Chloride ABG Glucose Oxyhemoglobin Carboxyhemoglobin Sodium Potassium Chloride Carbon Dioxide BUN Creatinine Glucose POC Glucose 201 H 205 H 106 H Lactic Acid Calcium Magnesium Ferritin Total Bilirubin Direct Bilirubin AST ALT Alkaline Phosphatase Lactate Dehydrogenase C-Reactive Protein Total Protein Albumin Triglycerides Lipase Arterial Blood Glucose Arterial Blood Ionized Calcium Urine WBC (Auto) Coronavirus (PCR) SARS-CoV-2 IgG Ab Crossmatch 07/20/20 07/20/20 07/20/20 05:28 11:18 17:30 WBC RBC Hgb Hct MCV MCH MCHC RDW Lymph % (Auto) [place] % (Auto) Lymph # (Auto) [place] # (Auto) Baso # (Auto) Seg Neutrophils % Seg Neuts % (Manual) Lymphocytes % (Manual) Nucleated RBC % Seg Neutrophils # Seg Neutrophils # Man Lymphocytes # (Manual) Monocytes # (Manual) Eosinophils # (Manual) PT INR APTT D-Dimer Heparin Anti-Xa Level ABG pH POC ABG pCO2 POC ABG pO2 ABG pO2 ABG HCO3 ABG O2 Saturation ABG Base Excess ABG Hemoglobin ABG Oxyhemoglobin ABG Sodium ABG Potassium ABG Chloride ABG Glucose Oxyhemoglobin Carboxyhemoglobin Sodium Potassium Chloride Carbon Dioxide BUN Creatinine Glucose POC Glucose 130 H 195 H 141 H Lactic Acid Calcium Magnesium Ferritin Total Bilirubin Direct Bilirubin AST ALT Alkaline Phosphatase Lactate Dehydrogenase C-Reactive Protein Total Protein Albumin Triglycerides Lipase Arterial Blood Glucose Arterial Blood Ionized Calcium Urine WBC (Auto) Coronavirus (PCR) SARS-CoV-2 IgG Ab Crossmatch 07/20/20 07/21/20 07/21/20 23:26 05:03 17:03 WBC RBC Hgb Hct MCV MCH MCHC RDW Lymph % (Auto) [place] % (Auto) Lymph # (Auto) [place] # (Auto) Baso # (Auto) Seg Neutrophils % Seg Neuts % (Manual) Lymphocytes % (Manual) Nucleated RBC % Seg Neutrophils # Seg Neutrophils # Man Lymphocytes # (Manual) Monocytes # (Manual) Eosinophils # (Manual) PT INR APTT D-Dimer Heparin Anti-Xa Level ABG pH POC ABG pCO2 POC ABG pO2 ABG pO2 ABG HCO3 ABG O2 Saturation ABG Base Excess ABG Hemoglobin ABG Oxyhemoglobin ABG Sodium ABG Potassium ABG Chloride ABG Glucose Oxyhemoglobin Carboxyhemoglobin Sodium Potassium Chloride Carbon Dioxide BUN Creatinine Glucose POC Glucose 116 H 142 H 181 H Lactic Acid Calcium Magnesium Ferritin Total Bilirubin Direct Bilirubin AST ALT Alkaline Phosphatase Lactate Dehydrogenase C-Reactive Protein Total Protein Albumin Triglycerides Lipase Arterial Blood Glucose Arterial Blood Ionized Calcium Urine WBC (Auto) Coronavirus (PCR) SARS-CoV-2 IgG Ab Crossmatch 07/21/20 07/22/20 07/22/20 23:51 06:09 11:40 WBC RBC Hgb Hct MCV MCH MCHC RDW Lymph % (Auto) [place] % (Auto) Lymph # (Auto) [place] # (Auto) Baso # (Auto) Seg Neutrophils % Seg Neuts % (Manual) Lymphocytes % (Manual) Nucleated RBC % Seg Neutrophils # Seg Neutrophils # Man Lymphocytes # (Manual) Monocytes # (Manual) Eosinophils # (Manual) PT INR APTT D-Dimer Heparin Anti-Xa Level ABG pH POC ABG pCO2 POC ABG pO2 ABG pO2 ABG HCO3 ABG O2 Saturation ABG Base Excess ABG Hemoglobin ABG Oxyhemoglobin ABG Sodium ABG Potassium ABG Chloride ABG Glucose Oxyhemoglobin Carboxyhemoglobin Sodium Potassium Chloride Carbon Dioxide BUN Creatinine Glucose POC Glucose 127 H 136 H 160 H Lactic Acid Calcium Magnesium Ferritin Total Bilirubin Direct Bilirubin AST ALT Alkaline Phosphatase Lactate Dehydrogenase C-Reactive Protein Total Protein Albumin Triglycerides Lipase Arterial Blood Glucose Arterial Blood Ionized Calcium Urine WBC (Auto) Coronavirus (PCR) SARS-CoV-2 IgG Ab Crossmatch 07/22/20 07/22/20 07/23/20 18:14 23:25 05:58 WBC 12.2 H RBC 3.44 L Hgb 10.9 L Hct 33.9 L MCV 99 H MCH MCHC RDW 16.9 H Lymph % (Auto) [place] % (Auto) 10.0 H Lymph # (Auto) [place] # (Auto) 1.2 H Baso # (Auto) Seg Neutrophils % Seg Neuts % (Manual) Lymphocytes % (Manual) Nucleated RBC % Seg Neutrophils # 8.3 H Seg Neutrophils # Man Lymphocytes # (Manual) Monocytes # (Manual) Eosinophils # (Manual) PT INR APTT D-Dimer Heparin Anti-Xa Level ABG pH POC ABG pCO2 POC ABG pO2 ABG pO2 ABG HCO3 ABG O2 Saturation ABG Base Excess ABG Hemoglobin ABG Oxyhemoglobin ABG Sodium ABG Potassium ABG Chloride ABG Glucose Oxyhemoglobin Carboxyhemoglobin Sodium Potassium Chloride Carbon Dioxide BUN Creatinine Glucose POC Glucose 189 H 164 H Lactic Acid Calcium Magnesium Ferritin Total Bilirubin Direct Bilirubin AST ALT Alkaline Phosphatase Lactate Dehydrogenase C-Reactive Protein Total Protein Albumin Triglycerides Lipase Arterial Blood Glucose Arterial Blood Ionized Calcium Urine WBC (Auto) Coronavirus (PCR) SARS-CoV-2 IgG Ab Crossmatch 07/23/20 07/23/20 07/23/20 05:58 06:02 12:14 WBC RBC Hgb Hct MCV MCH MCHC RDW Lymph % (Auto) [place] % (Auto) Lymph # (Auto) [place] # (Auto) Baso # (Auto) Seg Neutrophils % Seg Neuts % (Manual) Lymphocytes % (Manual) Nucleated RBC % Seg Neutrophils # Seg Neutrophils # Man Lymphocytes # (Manual) Monocytes # (Manual) Eosinophils # (Manual) PT INR APTT D-Dimer Heparin Anti-Xa Level ABG pH POC ABG pCO2 POC ABG pO2 ABG pO2 ABG HCO3 ABG O2 Saturation ABG Base Excess ABG Hemoglobin ABG Oxyhemoglobin ABG Sodium ABG Potassium ABG Chloride ABG Glucose Oxyhemoglobin Carboxyhemoglobin Sodium Potassium 2.9 L* Chloride 94.9 L Carbon Dioxide 33 H D BUN Creatinine 0.4 L Glucose 129 H POC Glucose 111 H 142 H Lactic Acid Calcium Magnesium Ferritin Total Bilirubin Direct Bilirubin AST ALT Alkaline Phosphatase Lactate Dehydrogenase C-Reactive Protein Total Protein Albumin 3.5 L Triglycerides Lipase Arterial Blood Glucose Arterial Blood Ionized Calcium Urine WBC (Auto) Coronavirus (PCR) SARS-CoV-2 IgG Ab Crossmatch 07/23/20 07/23/20 07/24/20 17:20 23:39 05:05 WBC 13.3 H RBC 3.40 L Hgb 10.8 L Hct 33.4 L MCV 98 H MCH MCHC RDW 16.7 H Lymph % (Auto) [place] % (Auto) 10.0 H Lymph # (Auto) [place] # (Auto) 1.3 H Baso # (Auto) Seg Neutrophils % Seg Neuts % (Manual) Lymphocytes % (Manual) Nucleated RBC % Seg Neutrophils # 9.0 H Seg Neutrophils # Man Lymphocytes # (Manual) Monocytes # (Manual) Eosinophils # (Manual) PT INR APTT D-Dimer Heparin Anti-Xa Level ABG pH POC ABG pCO2 POC ABG pO2 ABG pO2 ABG HCO3 ABG O2 Saturation ABG Base Excess ABG Hemoglobin ABG Oxyhemoglobin ABG Sodium ABG Potassium ABG Chloride ABG Glucose Oxyhemoglobin Carboxyhemoglobin Sodium Potassium Chloride Carbon Dioxide BUN Creatinine Glucose POC Glucose 150 H 120 H Lactic Acid Calcium Magnesium Ferritin Total Bilirubin Direct Bilirubin AST ALT Alkaline Phosphatase Lactate Dehydrogenase C-Reactive Protein Total Protein Albumin Triglycerides Lipase Arterial Blood Glucose Arterial Blood Ionized Calcium Urine WBC (Auto) Coronavirus (PCR) SARS-CoV-2 IgG Ab Crossmatch 07/24/20 07/24/20 07/24/20 05:05 05:39 11:30 WBC RBC Hgb Hct MCV MCH MCHC RDW Lymph % (Auto) [place] % (Auto) Lymph # (Auto) [place] # (Auto) Baso # (Auto) Seg Neutrophils % Seg Neuts % (Manual) Lymphocytes % (Manual) Nucleated RBC % Seg Neutrophils # Seg Neutrophils # Man Lymphocytes # (Manual) Monocytes # (Manual) Eosinophils # (Manual) PT INR APTT D-Dimer Heparin Anti-Xa Level ABG pH POC ABG pCO2 POC ABG pO2 ABG pO2 ABG HCO3 ABG O2 Saturation ABG Base Excess ABG Hemoglobin ABG Oxyhemoglobin ABG Sodium ABG Potassium ABG Chloride ABG Glucose Oxyhemoglobin Carboxyhemoglobin Sodium Potassium Chloride 97.4 L Carbon Dioxide BUN Creatinine 0.3 L Glucose 111 H POC Glucose 118 H 160 H Lactic Acid Calcium Magnesium Ferritin Total Bilirubin Direct Bilirubin AST ALT Alkaline Phosphatase Lactate Dehydrogenase C-Reactive Protein Total Protein Albumin Triglycerides Lipase Arterial Blood Glucose Arterial Blood Ionized Calcium Urine WBC (Auto) Coronavirus (PCR) SARS-CoV-2 IgG Ab Crossmatch 07/24/20 07/24/20 07/25/20 16:45 23:43 05:00 WBC RBC Hgb Hct MCV MCH MCHC RDW Lymph % (Auto) [place] % (Auto) Lymph # (Auto) [place] # (Auto) Baso # (Auto) Seg Neutrophils % Seg Neuts % (Manual) Lymphocytes % (Manual) Nucleated RBC % Seg Neutrophils # Seg Neutrophils # Man Lymphocytes # (Manual) Monocytes # (Manual) Eosinophils # (Manual) PT INR APTT D-Dimer Heparin Anti-Xa Level ABG pH POC ABG pCO2 POC ABG pO2 ABG pO2 ABG HCO3 ABG O2 Saturation ABG Base Excess ABG Hemoglobin ABG Oxyhemoglobin ABG Sodium ABG Potassium ABG Chloride ABG Glucose Oxyhemoglobin Carboxyhemoglobin Sodium Potassium Chloride Carbon Dioxide BUN Creatinine Glucose POC Glucose 181 H 122 H 114 H Lactic Acid Calcium Magnesium Ferritin Total Bilirubin Direct Bilirubin AST ALT Alkaline Phosphatase Lactate Dehydrogenase C-Reactive Protein Total Protein Albumin Triglycerides Lipase Arterial Blood Glucose Arterial Blood Ionized Calcium Urine WBC (Auto) Coronavirus (PCR) SARS-CoV-2 IgG Ab Crossmatch 07/25/20 07/25/20 07/25/20 11:44 16:44 23:41 WBC RBC Hgb Hct MCV MCH MCHC RDW Lymph % (Auto) [place] % (Auto) Lymph # (Auto) [place] # (Auto) Baso # (Auto) Seg Neutrophils % Seg Neuts % (Manual) Lymphocytes % (Manual) Nucleated RBC % Seg Neutrophils # Seg Neutrophils # Man Lymphocytes # (Manual) Monocytes # (Manual) Eosinophils # (Manual) PT INR APTT D-Dimer Heparin Anti-Xa Level ABG pH POC ABG pCO2 POC ABG pO2 ABG pO2 ABG HCO3 ABG O2 Saturation ABG Base Excess ABG Hemoglobin ABG Oxyhemoglobin ABG Sodium ABG Potassium ABG Chloride ABG Glucose Oxyhemoglobin Carboxyhemoglobin Sodium Potassium Chloride Carbon Dioxide BUN Creatinine Glucose POC Glucose 298 H 166 H 133 H Lactic Acid Calcium Magnesium Ferritin Total Bilirubin Direct Bilirubin AST ALT Alkaline Phosphatase Lactate Dehydrogenase C-Reactive Protein Total Protein Albumin Triglycerides Lipase Arterial Blood Glucose Arterial Blood Ionized Calcium Urine WBC (Auto) Coronavirus (PCR) SARS-CoV-2 IgG Ab Crossmatch 07/26/20 07/26/20 07/26/20 05:17 11:17 18:07 WBC RBC Hgb Hct MCV MCH MCHC RDW Lymph % (Auto) [place] % (Auto) Lymph # (Auto) [place] # (Auto) Baso # (Auto) Seg Neutrophils % Seg Neuts % (Manual) Lymphocytes % (Manual) Nucleated RBC % Seg Neutrophils # Seg Neutrophils # Man Lymphocytes # (Manual) Monocytes # (Manual) Eosinophils # (Manual) PT INR APTT D-Dimer Heparin Anti-Xa Level ABG pH POC ABG pCO2 POC ABG pO2 ABG pO2 ABG HCO3 ABG O2 Saturation ABG Base Excess ABG Hemoglobin ABG Oxyhemoglobin ABG Sodium ABG Potassium ABG Chloride ABG Glucose Oxyhemoglobin Carboxyhemoglobin Sodium Potassium Chloride Carbon Dioxide BUN Creatinine Glucose POC Glucose 113 H 157 H 154 H Lactic Acid Calcium Magnesium Ferritin Total Bilirubin Direct Bilirubin AST ALT Alkaline Phosphatase Lactate Dehydrogenase C-Reactive Protein Total Protein Albumin Triglycerides Lipase Arterial Blood Glucose Arterial Blood Ionized Calcium Urine WBC (Auto) Coronavirus (PCR) SARS-CoV-2 IgG Ab Crossmatch 07/26/20 07/27/20 07/27/20 23:44 08:26 08:26 WBC RBC 3.63 L Hgb Hct MCV 98 H MCH MCHC RDW 17.5 H Lymph % (Auto) [place] % (Auto) 10.6 H Lymph # (Auto) [place] # (Auto) 1.1 H Baso # (Auto) Seg Neutrophils % Seg Neuts % (Manual) Lymphocytes % (Manual) Nucleated RBC % Seg Neutrophils # Seg Neutrophils # Man Lymphocytes # (Manual) Monocytes # (Manual) Eosinophils # (Manual) PT INR APTT D-Dimer Heparin Anti-Xa Level ABG pH POC ABG pCO2 POC ABG pO2 ABG pO2 ABG HCO3 ABG O2 Saturation ABG Base Excess ABG Hemoglobin ABG Oxyhemoglobin ABG Sodium ABG Potassium ABG Chloride ABG Glucose Oxyhemoglobin Carboxyhemoglobin Sodium Potassium Chloride 97.9 L Carbon Dioxide 37 H D BUN Creatinine 0.4 L Glucose 115 H POC Glucose 148 H Lactic Acid Calcium Magnesium Ferritin Total Bilirubin Direct Bilirubin AST ALT Alkaline Phosphatase Lactate Dehydrogenase C-Reactive Protein Total Protein Albumin Triglycerides Lipase Arterial Blood Glucose Arterial Blood Ionized Calcium Urine WBC (Auto) Coronavirus (PCR) SARS-CoV-2 IgG Ab Crossmatch 07/27/20 07/27/20 07/27/20 11:41 16:50 23:22 WBC RBC Hgb Hct MCV MCH MCHC RDW Lymph % (Auto) [place] % (Auto) Lymph # (Auto) [place] # (Auto) Baso # (Auto) Seg Neutrophils % Seg Neuts % (Manual) Lymphocytes % (Manual) Nucleated RBC % Seg Neutrophils # Seg Neutrophils # Man Lymphocytes # (Manual) Monocytes # (Manual) Eosinophils # (Manual) PT INR APTT D-Dimer Heparin Anti-Xa Level ABG pH POC ABG pCO2 POC ABG pO2 ABG pO2 ABG HCO3 ABG O2 Saturation ABG Base Excess ABG Hemoglobin ABG Oxyhemoglobin ABG Sodium ABG Potassium ABG Chloride ABG Glucose Oxyhemoglobin Carboxyhemoglobin Sodium Potassium Chloride Carbon Dioxide BUN Creatinine Glucose POC Glucose 169 H 132 H 120 H Lactic Acid Calcium Magnesium Ferritin Total Bilirubin Direct Bilirubin AST ALT Alkaline Phosphatase Lactate Dehydrogenase C-Reactive Protein Total Protein Albumin Triglycerides Lipase Arterial Blood Glucose Arterial Blood Ionized Calcium Urine WBC (Auto) Coronavirus (PCR) SARS-CoV-2 IgG Ab Crossmatch 07/28/20 07/29/20 07/29/20 17:39 14:14 16:32 WBC RBC Hgb Hct MCV MCH MCHC RDW Lymph % (Auto) [place] % (Auto) Lymph # (Auto) [place] # (Auto) Baso # (Auto) Seg Neutrophils % Seg Neuts % (Manual) Lymphocytes % (Manual) Nucleated RBC % Seg Neutrophils # Seg Neutrophils # Man Lymphocytes # (Manual) Monocytes # (Manual) Eosinophils # (Manual) PT INR APTT D-Dimer Heparin Anti-Xa Level ABG pH POC ABG pCO2 POC ABG pO2 ABG pO2 ABG HCO3 ABG O2 Saturation ABG Base Excess ABG Hemoglobin ABG Oxyhemoglobin ABG Sodium ABG Potassium ABG Chloride ABG Glucose Oxyhemoglobin Carboxyhemoglobin Sodium Potassium Chloride Carbon Dioxide BUN Creatinine Glucose POC Glucose 187 H 188 H 193 H Lactic Acid Calcium Magnesium Ferritin Total Bilirubin Direct Bilirubin AST ALT Alkaline Phosphatase Lactate Dehydrogenase C-Reactive Protein Total Protein Albumin Triglycerides Lipase Arterial Blood Glucose Arterial Blood Ionized Calcium Urine WBC (Auto) Coronavirus (PCR) SARS-CoV-2 IgG Ab Crossmatch 07/30/20 07/30/20 07/30/20 12:03 15:59 23:20 WBC RBC Hgb Hct MCV MCH MCHC RDW Lymph % (Auto) [place] % (Auto) Lymph # (Auto) [place] # (Auto) Baso # (Auto) Seg Neutrophils % Seg Neuts % (Manual) Lymphocytes % (Manual) Nucleated RBC % Seg Neutrophils # Seg Neutrophils # Man Lymphocytes # (Manual) Monocytes # (Manual) Eosinophils # (Manual) PT INR APTT D-Dimer Heparin Anti-Xa Level ABG pH POC ABG pCO2 POC ABG pO2 ABG pO2 ABG HCO3 ABG O2 Saturation ABG Base Excess ABG Hemoglobin ABG Oxyhemoglobin ABG Sodium ABG Potassium ABG Chloride ABG Glucose Oxyhemoglobin Carboxyhemoglobin Sodium Potassium Chloride Carbon Dioxide BUN Creatinine Glucose POC Glucose 133 H 191 H 144 H Lactic Acid Calcium Magnesium Ferritin Total Bilirubin Direct Bilirubin AST ALT Alkaline Phosphatase Lactate Dehydrogenase C-Reactive Protein Total Protein Albumin Triglycerides Lipase Arterial Blood Glucose Arterial Blood Ionized Calcium Urine WBC (Auto) Coronavirus (PCR) SARS-CoV-2 IgG Ab Crossmatch 07/31/20 07/31/20 07/31/20 05:28 12:01 16:43 WBC RBC Hgb Hct MCV MCH MCHC RDW Lymph % (Auto) [place] % (Auto) Lymph # (Auto) [place] # (Auto) Baso # (Auto) Seg Neutrophils % Seg Neuts % (Manual) Lymphocytes % (Manual) Nucleated RBC % Seg Neutrophils # Seg Neutrophils # Man Lymphocytes # (Manual) Monocytes # (Manual) Eosinophils # (Manual) PT INR APTT D-Dimer Heparin Anti-Xa Level ABG pH POC ABG pCO2 POC ABG pO2 ABG pO2 ABG HCO3 ABG O2 Saturation ABG Base Excess ABG Hemoglobin ABG Oxyhemoglobin ABG Sodium ABG Potassium ABG Chloride ABG Glucose Oxyhemoglobin Carboxyhemoglobin Sodium Potassium Chloride Carbon Dioxide BUN Creatinine Glucose POC Glucose 128 H 137 H 170 H Lactic Acid Calcium Magnesium Ferritin Total Bilirubin Direct Bilirubin AST ALT Alkaline Phosphatase Lactate Dehydrogenase C-Reactive Protein Total Protein Albumin Triglycerides Lipase Arterial Blood Glucose Arterial Blood Ionized Calcium Urine WBC (Auto) Coronavirus (PCR) SARS-CoV-2 IgG Ab Crossmatch 07/31/20 08/01/20 08/01/20 20:28 07:44 11:02 WBC RBC Hgb Hct MCV MCH MCHC RDW Lymph % (Auto) [place] % (Auto) Lymph # (Auto) [place] # (Auto) Baso # (Auto) Seg Neutrophils % Seg Neuts % (Manual) Lymphocytes % (Manual) Nucleated RBC % Seg Neutrophils # Seg Neutrophils # Man Lymphocytes # (Manual) Monocytes # (Manual) Eosinophils # (Manual) PT INR APTT D-Dimer Heparin Anti-Xa Level ABG pH POC ABG pCO2 POC ABG pO2 ABG pO2 ABG HCO3 ABG O2 Saturation ABG Base Excess ABG Hemoglobin ABG Oxyhemoglobin ABG Sodium ABG Potassium ABG Chloride ABG Glucose Oxyhemoglobin Carboxyhemoglobin Sodium Potassium Chloride Carbon Dioxide BUN Creatinine Glucose POC Glucose 142 H 111 H 137 H Lactic Acid Calcium Magnesium Ferritin Total Bilirubin Direct Bilirubin AST ALT Alkaline Phosphatase Lactate Dehydrogenase C-Reactive Protein Total Protein Albumin Triglycerides Lipase Arterial Blood Glucose Arterial Blood Ionized Calcium Urine WBC (Auto) Coronavirus (PCR) SARS-CoV-2 IgG Ab Crossmatch 08/01/20 08/01/20 08/02/20 15:46 20:46 05:55 WBC 12.4 H RBC Hgb Hct MCV 99 H MCH MCHC RDW 16.9 H Lymph % (Auto) [place] % (Auto) 9.7 H Lymph # (Auto) [place] # (Auto) 1.2 H Baso # (Auto) Seg Neutrophils % Seg Neuts % (Manual) Lymphocytes % (Manual) Nucleated RBC % Seg Neutrophils # 8.5 H Seg Neutrophils # Man Lymphocytes # (Manual) Monocytes # (Manual) Eosinophils # (Manual) PT INR APTT D-Dimer Heparin Anti-Xa Level ABG pH POC ABG pCO2 POC ABG pO2 ABG pO2 ABG HCO3 ABG O2 Saturation ABG Base Excess ABG Hemoglobin ABG Oxyhemoglobin ABG Sodium ABG Potassium ABG Chloride ABG Glucose Oxyhemoglobin Carboxyhemoglobin Sodium Potassium Chloride Carbon Dioxide BUN Creatinine Glucose POC Glucose 131 H 123 H Lactic Acid Calcium Magnesium Ferritin Total Bilirubin Direct Bilirubin AST ALT Alkaline Phosphatase Lactate Dehydrogenase C-Reactive Protein Total Protein Albumin Triglycerides Lipase Arterial Blood Glucose Arterial Blood Ionized Calcium Urine WBC (Auto) Coronavirus (PCR) SARS-CoV-2 IgG Ab Crossmatch 08/02/20 08/02/20 08/02/20 05:55 08:19 12:24 WBC RBC Hgb Hct MCV MCH MCHC RDW Lymph % (Auto) [place] % (Auto) Lymph # (Auto) [place] # (Auto) Baso # (Auto) Seg Neutrophils % Seg Neuts % (Manual) Lymphocytes % (Manual) Nucleated RBC % Seg Neutrophils # Seg Neutrophils # Man Lymphocytes # (Manual) Monocytes # (Manual) Eosinophils # (Manual) PT INR APTT D-Dimer Heparin Anti-Xa Level ABG pH POC ABG pCO2 POC ABG pO2 ABG pO2 ABG HCO3 ABG O2 Saturation ABG Base Excess ABG Hemoglobin ABG Oxyhemoglobin ABG Sodium ABG Potassium ABG Chloride ABG Glucose Oxyhemoglobin Carboxyhemoglobin Sodium Potassium 2.9 L* Chloride 96.5 L Carbon Dioxide 39 H BUN Creatinine 0.3 L Glucose 105 H POC Glucose 152 H 144 H Lactic Acid Calcium Magnesium Ferritin Total Bilirubin Direct Bilirubin AST ALT 118 H Alkaline Phosphatase Lactate Dehydrogenase C-Reactive Protein Total Protein Albumin 3.3 L Triglycerides Lipase Arterial Blood Glucose Arterial Blood Ionized Calcium Urine WBC (Auto) Coronavirus (PCR) SARS-CoV-2 IgG Ab Crossmatch 08/02/20 08/02/20 08/02/20 13:55 16:23 17:00 WBC RBC Hgb Hct MCV MCH MCHC RDW Lymph % (Auto) [place] % (Auto) Lymph # (Auto) [place] # (Auto) Baso # (Auto) Seg Neutrophils % Seg Neuts % (Manual) Lymphocytes % (Manual) Nucleated RBC % Seg Neutrophils # Seg Neutrophils # Man Lymphocytes # (Manual) Monocytes # (Manual) Eosinophils # (Manual) PT INR APTT D-Dimer Heparin Anti-Xa Level ABG pH POC ABG pCO2 POC ABG pO2 ABG pO2 ABG HCO3 ABG O2 Saturation ABG Base Excess ABG Hemoglobin ABG Oxyhemoglobin ABG Sodium ABG Potassium ABG Chloride ABG Glucose Oxyhemoglobin Carboxyhemoglobin Sodium Potassium 3.0 L Chloride Carbon Dioxide BUN Creatinine Glucose POC Glucose 142 H 193 H Lactic Acid Calcium Magnesium Ferritin Total Bilirubin Direct Bilirubin AST ALT Alkaline Phosphatase Lactate Dehydrogenase C-Reactive Protein Total Protein Albumin Triglycerides Lipase Arterial Blood Glucose Arterial Blood Ionized Calcium Urine WBC (Auto) Coronavirus (PCR) SARS-CoV-2 IgG Ab Crossmatch 08/02/20 08/03/20 08/03/20 21:21 05:18 08:05 WBC RBC Hgb Hct MCV MCH MCHC RDW Lymph % (Auto) [place] % (Auto) Lymph # (Auto) [place] # (Auto) Baso # (Auto) Seg Neutrophils % Seg Neuts % (Manual) Lymphocytes % (Manual) Nucleated RBC % Seg Neutrophils # Seg Neutrophils # Man Lymphocytes # (Manual) Monocytes # (Manual) Eosinophils # (Manual) PT INR APTT D-Dimer Heparin Anti-Xa Level ABG pH POC ABG pCO2 POC ABG pO2 ABG pO2 ABG HCO3 ABG O2 Saturation ABG Base Excess ABG Hemoglobin ABG Oxyhemoglobin ABG Sodium ABG Potassium ABG Chloride ABG Glucose Oxyhemoglobin Carboxyhemoglobin Sodium Potassium Chloride Carbon Dioxide 32 H D BUN Creatinine 0.4 L Glucose POC Glucose 161 H 107 H Lactic Acid Calcium Magnesium Ferritin Total Bilirubin Direct Bilirubin AST ALT Alkaline Phosphatase Lactate Dehydrogenase C-Reactive Protein Total Protein Albumin Triglycerides Lipase Arterial Blood Glucose Arterial Blood Ionized Calcium Urine WBC (Auto) Coronavirus (PCR) SARS-CoV-2 IgG Ab Crossmatch 08/03/20 08/03/20 08/04/20 12:03 20:20 07:46 WBC RBC Hgb Hct MCV MCH MCHC RDW Lymph % (Auto) [place] % (Auto) Lymph # (Auto) [place] # (Auto) Baso # (Auto) Seg Neutrophils % Seg Neuts % (Manual) Lymphocytes % (Manual) Nucleated RBC % Seg Neutrophils # Seg Neutrophils # Man Lymphocytes # (Manual) Monocytes # (Manual) Eosinophils # (Manual) PT INR APTT D-Dimer Heparin Anti-Xa Level ABG pH POC ABG pCO2 POC ABG pO2 ABG pO2 ABG HCO3 ABG O2 Saturation ABG Base Excess ABG Hemoglobin ABG Oxyhemoglobin ABG Sodium ABG Potassium ABG Chloride ABG Glucose Oxyhemoglobin Carboxyhemoglobin Sodium Potassium Chloride Carbon Dioxide BUN Creatinine Glucose POC Glucose 135 H 167 H 109 H Lactic Acid Calcium Magnesium Ferritin Total Bilirubin Direct Bilirubin AST ALT Alkaline Phosphatase Lactate Dehydrogenase C-Reactive Protein Total Protein Albumin Triglycerides Lipase Arterial Blood Glucose Arterial Blood Ionized Calcium Urine WBC (Auto) Coronavirus (PCR) SARS-CoV-2 IgG Ab Crossmatch 08/04/20 08/04/20 08/04/20 11:54 16:48 20:39 WBC RBC Hgb Hct MCV MCH MCHC RDW Lymph % (Auto) [place] % (Auto) Lymph # (Auto) [place] # (Auto) Baso # (Auto) Seg Neutrophils % Seg Neuts % (Manual) Lymphocytes % (Manual) Nucleated RBC % Seg Neutrophils # Seg Neutrophils # Man Lymphocytes # (Manual) Monocytes # (Manual) Eosinophils # (Manual) PT INR APTT D-Dimer Heparin Anti-Xa Level ABG pH POC ABG pCO2 POC ABG pO2 ABG pO2 ABG HCO3 ABG O2 Saturation ABG Base Excess ABG Hemoglobin ABG Oxyhemoglobin ABG Sodium ABG Potassium ABG Chloride ABG Glucose Oxyhemoglobin Carboxyhemoglobin Sodium Potassium Chloride Carbon Dioxide BUN Creatinine Glucose POC Glucose 133 H 150 H 139 H Lactic Acid Calcium Magnesium Ferritin Total Bilirubin Direct Bilirubin AST ALT Alkaline Phosphatase Lactate Dehydrogenase C-Reactive Protein Total Protein Albumin Triglycerides Lipase Arterial Blood Glucose Arterial Blood Ionized Calcium Urine WBC (Auto) Coronavirus (PCR) SARS-CoV-2 IgG Ab Crossmatch 08/05/20 08/05/20 08/05/20 07:45 11:36 16:09 WBC RBC Hgb Hct MCV MCH MCHC RDW Lymph % (Auto) [place] % (Auto) Lymph # (Auto) [place] # (Auto) Baso # (Auto) Seg Neutrophils % Seg Neuts % (Manual) Lymphocytes % (Manual) Nucleated RBC % Seg Neutrophils # Seg Neutrophils # Man Lymphocytes # (Manual) Monocytes # (Manual) Eosinophils # (Manual) PT INR APTT D-Dimer Heparin Anti-Xa Level ABG pH POC ABG pCO2 POC ABG pO2 ABG pO2 ABG HCO3 ABG O2 Saturation ABG Base Excess ABG Hemoglobin ABG Oxyhemoglobin ABG Sodium ABG Potassium ABG Chloride ABG Glucose Oxyhemoglobin Carboxyhemoglobin Sodium Potassium Chloride Carbon Dioxide BUN Creatinine Glucose POC Glucose 115 H 112 H 118 H Lactic Acid Calcium Magnesium Ferritin Total Bilirubin Direct Bilirubin AST ALT Alkaline Phosphatase Lactate Dehydrogenase C-Reactive Protein Total Protein Albumin Triglycerides Lipase Arterial Blood Glucose Arterial Blood Ionized Calcium Urine WBC (Auto) Coronavirus (PCR) SARS-CoV-2 IgG Ab Crossmatch 08/05/20 08/06/20 08/06/20 22:06 11:09 16:51 WBC RBC Hgb Hct MCV MCH MCHC RDW Lymph % (Auto) [place] % (Auto) Lymph # (Auto) [place] # (Auto) Baso # (Auto) Seg Neutrophils % Seg Neuts % (Manual) Lymphocytes % (Manual) Nucleated RBC % Seg Neutrophils # Seg Neutrophils # Man Lymphocytes # (Manual) Monocytes # (Manual) Eosinophils # (Manual) PT INR APTT D-Dimer Heparin Anti-Xa Level ABG pH POC ABG pCO2 POC ABG pO2 ABG pO2 ABG HCO3 ABG O2 Saturation ABG Base Excess ABG Hemoglobin ABG Oxyhemoglobin ABG Sodium ABG Potassium ABG Chloride ABG Glucose Oxyhemoglobin Carboxyhemoglobin Sodium Potassium Chloride Carbon Dioxide BUN Creatinine Glucose POC Glucose 120 H 125 H 135 H Lactic Acid Calcium Magnesium Ferritin Total Bilirubin Direct Bilirubin AST ALT Alkaline Phosphatase Lactate Dehydrogenase C-Reactive Protein Total Protein Albumin Triglycerides Lipase Arterial Blood Glucose Arterial Blood Ionized Calcium Urine WBC (Auto) Coronavirus (PCR) SARS-CoV-2 IgG Ab Crossmatch 08/06/20 08/07/20 08/07/20 20:21 08:15 12:46 WBC RBC Hgb Hct MCV MCH MCHC RDW Lymph % (Auto) [place] % (Auto) Lymph # (Auto) [place] # (Auto) Baso # (Auto) Seg Neutrophils % Seg Neuts % (Manual) Lymphocytes % (Manual) Nucleated RBC % Seg Neutrophils # Seg Neutrophils # Man Lymphocytes # (Manual) Monocytes # (Manual) Eosinophils # (Manual) PT INR APTT D-Dimer Heparin Anti-Xa Level ABG pH POC ABG pCO2 POC ABG pO2 ABG pO2 ABG HCO3 ABG O2 Saturation ABG Base Excess ABG Hemoglobin ABG Oxyhemoglobin ABG Sodium ABG Potassium ABG Chloride ABG Glucose Oxyhemoglobin Carboxyhemoglobin Sodium Potassium Chloride Carbon Dioxide BUN Creatinine Glucose POC Glucose 127 H 120 H 113 H Lactic Acid Calcium Magnesium Ferritin Total Bilirubin Direct Bilirubin AST ALT Alkaline Phosphatase Lactate Dehydrogenase C-Reactive Protein Total Protein Albumin Triglycerides Lipase Arterial Blood Glucose Arterial Blood Ionized Calcium Urine WBC (Auto) Coronavirus (PCR) SARS-CoV-2 IgG Ab Crossmatch 08/07/20 08/07/20 08/08/20 16:38 21:30 07:40 WBC RBC Hgb Hct MCV MCH MCHC RDW Lymph % (Auto) [place] % (Auto) Lymph # (Auto) [place] # (Auto) Baso # (Auto) Seg Neutrophils % Seg Neuts % (Manual) Lymphocytes % (Manual) Nucleated RBC % Seg Neutrophils # Seg Neutrophils # Man Lymphocytes # (Manual) Monocytes # (Manual) Eosinophils # (Manual) PT INR APTT D-Dimer Heparin Anti-Xa Level ABG pH POC ABG pCO2 POC ABG pO2 ABG pO2 ABG HCO3 ABG O2 Saturation ABG Base Excess ABG Hemoglobin ABG Oxyhemoglobin ABG Sodium ABG Potassium ABG Chloride ABG Glucose Oxyhemoglobin Carboxyhemoglobin Sodium Potassium Chloride Carbon Dioxide BUN Creatinine Glucose POC Glucose 119 H 129 H 115 H Lactic Acid Calcium Magnesium Ferritin Total Bilirubin Direct Bilirubin AST ALT Alkaline Phosphatase Lactate Dehydrogenase C-Reactive Protein Total Protein Albumin Triglycerides Lipase Arterial Blood Glucose Arterial Blood Ionized Calcium Urine WBC (Auto) Coronavirus (PCR) SARS-CoV-2 IgG Ab Crossmatch 08/08/20 08/08/20 08/08/20 11:31 16:03 21:17 WBC RBC Hgb Hct MCV MCH MCHC RDW Lymph % (Auto) [place] % (Auto) Lymph # (Auto) [place] # (Auto) Baso # (Auto) Seg Neutrophils % Seg Neuts % (Manual) Lymphocytes % (Manual) Nucleated RBC % Seg Neutrophils # Seg Neutrophils # Man Lymphocytes # (Manual) Monocytes # (Manual) Eosinophils # (Manual) PT INR APTT D-Dimer Heparin Anti-Xa Level ABG pH POC ABG pCO2 POC ABG pO2 ABG pO2 ABG HCO3 ABG O2 Saturation ABG Base Excess ABG Hemoglobin ABG Oxyhemoglobin ABG Sodium ABG Potassium ABG Chloride ABG Glucose Oxyhemoglobin Carboxyhemoglobin Sodium Potassium Chloride Carbon Dioxide BUN Creatinine Glucose POC Glucose 117 H 113 H 132 H Lactic Acid Calcium Magnesium Ferritin Total Bilirubin Direct Bilirubin AST ALT Alkaline Phosphatase Lactate Dehydrogenase C-Reactive Protein Total Protein Albumin Triglycerides Lipase Arterial Blood Glucose Arterial Blood Ionized Calcium Urine WBC (Auto) Coronavirus (PCR) SARS-CoV-2 IgG Ab Crossmatch 08/09/20 08/09/20 08/09/20 11:53 16:53 21:39 WBC RBC Hgb Hct MCV MCH MCHC RDW Lymph % (Auto) [place] % (Auto) Lymph # (Auto) [place] # (Auto) Baso # (Auto) Seg Neutrophils % Seg Neuts % (Manual) Lymphocytes % (Manual) Nucleated RBC % Seg Neutrophils # Seg Neutrophils # Man Lymphocytes # (Manual) Monocytes # (Manual) Eosinophils # (Manual) PT INR APTT D-Dimer Heparin Anti-Xa Level ABG pH POC ABG pCO2 POC ABG pO2 ABG pO2 ABG HCO3 ABG O2 Saturation ABG Base Excess ABG Hemoglobin ABG Oxyhemoglobin ABG Sodium ABG Potassium ABG Chloride ABG Glucose Oxyhemoglobin Carboxyhemoglobin Sodium Potassium Chloride Carbon Dioxide BUN Creatinine Glucose POC Glucose 131 H 153 H 114 H Lactic Acid Calcium Magnesium Ferritin Total Bilirubin Direct Bilirubin AST ALT Alkaline Phosphatase Lactate Dehydrogenase C-Reactive Protein Total Protein Albumin Triglycerides Lipase Arterial Blood Glucose Arterial Blood Ionized Calcium Urine WBC (Auto) Coronavirus (PCR) SARS-CoV-2 IgG Ab Crossmatch 08/10/20 08/10/20 08/10/20 07:58 11:57 16:53 WBC RBC Hgb Hct MCV MCH MCHC RDW Lymph % (Auto) [place] % (Auto) Lymph # (Auto) [place] # (Auto) Baso # (Auto) Seg Neutrophils % Seg Neuts % (Manual) Lymphocytes % (Manual) Nucleated RBC % Seg Neutrophils # Seg Neutrophils # Man Lymphocytes # (Manual) Monocytes # (Manual) Eosinophils # (Manual) PT INR APTT D-Dimer Heparin Anti-Xa Level ABG pH POC ABG pCO2 POC ABG pO2 ABG pO2 ABG HCO3 ABG O2 Saturation ABG Base Excess ABG Hemoglobin ABG Oxyhemoglobin ABG Sodium ABG Potassium ABG Chloride ABG Glucose Oxyhemoglobin Carboxyhemoglobin Sodium Potassium Chloride Carbon Dioxide BUN Creatinine Glucose POC Glucose 106 H 139 H 140 H Lactic Acid Calcium Magnesium Ferritin Total Bilirubin Direct Bilirubin AST ALT Alkaline Phosphatase Lactate Dehydrogenase C-Reactive Protein Total Protein Albumin Triglycerides Lipase Arterial Blood Glucose Arterial Blood Ionized Calcium Urine WBC (Auto) Coronavirus (PCR) SARS-CoV-2 IgG Ab Crossmatch 08/10/20 08/11/20 20:45 12:07 WBC RBC Hgb Hct MCV MCH MCHC RDW Lymph % (Auto) [place] % (Auto) Lymph # (Auto) [place] # (Auto) Baso # (Auto) Seg Neutrophils % Seg Neuts % (Manual) Lymphocytes % (Manual) Nucleated RBC % Seg Neutrophils # Seg Neutrophils # Man Lymphocytes # (Manual) Monocytes # (Manual) Eosinophils # (Manual) PT INR APTT D-Dimer Heparin Anti-Xa Level ABG pH POC ABG pCO2 POC ABG pO2 ABG pO2 ABG HCO3 ABG O2 Saturation ABG Base Excess ABG Hemoglobin ABG Oxyhemoglobin ABG Sodium ABG Potassium ABG Chloride ABG Glucose Oxyhemoglobin Carboxyhemoglobin Sodium Potassium Chloride Carbon Dioxide BUN Creatinine Glucose POC Glucose 161 H 114 H Lactic Acid Calcium Magnesium Ferritin Total Bilirubin Direct Bilirubin AST ALT Alkaline Phosphatase Lactate Dehydrogenase C-Reactive Protein Total Protein Albumin Triglycerides Lipase Arterial Blood Glucose Arterial Blood Ionized Calcium Urine WBC (Auto) Coronavirus (PCR) SARS-CoV-2 IgG Ab Crossmatch Chest x-ray: report reviewed, image reviewed Additional Studies: CHEST 2 VIEWS 08/11/20 INDICATION: Follow up on pulmonary infiltrates.. COMPARISON: 08/09/2020 FINDINGS: Support devices: None. Heart: Within normal limits. Lungs/pleura: Bilateral lung opacities appear unchanged since the exam 2 days ago. No consolidation, pleural effusion or pneumothorax has developed. Additional findings: None. IMPRESSION: No significant interval change. Allied health notes reviewed: nursing
[2020-08-11] MEDS ORDERED: SODIUM CHLORIDE 0.9% 1000 ML 1,000 ML ONE (14:42)
--- NOTE | 2020-08-11 17:57 | Progress Note ---
Assessment and Plan Assessment and plan: Positive COVID-19 test; 05/10/2020 Negative COVID-19 test; 06/30/2020 --Acute hypoxemic resp failure; oxygen dependent on 4 L NC, requiring intermittent BiPAP Due to COVID-19 pneumonia --Persistent sinus tachycardia: Multifactorial We will closely monitor --Severe COVID-19 bilateral pneumonia Coronavirus protocol: Completed steroids and remdesivir therapy, isolation precautions, Received management per COVID-19 protocol Repeat ivory PCR test negative on 06/30/2020 Isolation discontinued --Pneumothorax status post right chest tube Chest tube removed 07/23/2020 Post removal chest x-ray no pneumothorax Patient is requiring 3 to 4 L nasal cannula And intermittent BiPAP --Severe hypokalemia; resolved --Elevated D-dimers; Patient had CTA chest ; negative for PE, patient already had lower extremity venous Doppler which was negative for DVT We will discontinue empiric therapeutic Lovenox, and change to DVT prophylaxis dose 40 mg subcu daily --Pseudomonas bacteremia; ID following, completed cefepime Monitor off antibiotics --Severe sepsis/septic shock, monitor off pressors Completed cefepime, monitor off antibiotics -- Acute kidney injury (SEN) , likely vasomotor nephropathy Resolved, avoid nephrotoxins --Acute on chronic anemia Guaiac test positive, GI evaluated the patient Patient H&H is normal range now Hb 11.8 -- Elevated liver function tests; resolved LFTs within normal limits --Colonic distention GI evaluated colonic distention resolved recommend stool softeners -- DVT prophylaxis On therapeutic Lovenox Chest tube removed Patient on 10 L nasal cannula oxygen, wean as tolerated Elevated D-dimers, on empiric therapeutic Lovenox CTA chest negative for PE,LE DVT negative, therapeutic Lovenox DC'd Changed to prophylactic Lovenox Discharge planning per case management reports that IRU is evaluating the patient for placement Patient is medically stable for discharge awaiting placement 07/23/2020; patient remains on high flow oxygen, wean oxygen as tolerated, severe hypokalemia Replenish per protocol monitor levels 07/24/2020; patient had chest tube removal yesterday 07/23/2019 and, post removal chest x-ray no pneumothorax no acute abnormalities Patient feels slightly better continues to require high flow oxygen Wean as tolerated, physical and occupational therapy, DC planning 07/26/2020; patient on 3 L nasal cannula oxygen, patient feels better 07/27/2020; patient was saturating well on 3 L of nasal cannula oxygen, however today patient is on high flow oxygen 15 L Complains of some congestion, wean oxygen levels to 3-5 as tolerated Discharge planning LTAC has refused patient,Possible home with home health versus placement when medically stable 07/28/2020; continue to wean oxygen, patient is on 10 L, awaiting placement 07/29/2020; continues to be on 10 L nasal cannula oxygen, wean as tolerated Patient is on empiric therapeutic dose Lovenox, due to elevated D-dimers Patient is stable for CTA chest today, follow the report and adjust Lovenox as needed DC planning per case management, with pending placement 07/30/2020; patient feels slightly better, oxygen reduced to 8 L of nasal cannula Will check PT OT, pending placement 07/31/2020 :Patient on 8 L of nasal cannula oxygen 08/03/2020; patient's oxygen requirement has come down to 3-4 and half liters nasal cannula Will try to wean oxygen as tolerated, respiratory therapist assisting to reach the goal Possible discharge home in 1 to 2 days if stable Plan of care reviewed with the patient and his nurse 08/04/2020; patient is requiring 3 to 4 L nasal cannula oxygen, case management to set up home oxygen Patient is hemodynamically and clinically stable for discharge, pending placement [facility] And of care reviewed with the patient and his nurse as well as the case management 08/05/2020 ; COVID-19 test requested , patient is hemodynamically and clinically stable for discharge Patient is requiring 4 L of nasal cannula oxygen . medically stable for discharge 08/06/2020; patient is hemodynamically and clinically stable for discharge and transfer to IRU unit today Pre-discharge COVID-19 test is negative, pending insurance authorization 08/07/20; patient is accepted by inpatient rehab unit for admission, pending insurance authorization Stable for discharge 08/08/2020; patient is stable for discharge to inpatient rehab unit, pending insurance approval 08/09/2020; block and case maker reports that insurance has not approved inpatient rehab placement for this patient Will evaluate for home oxygen, set up home oxygen if eligible, and plan discharge home with home health when patient is hemodynamically stable 08/10/2020; patient continues to have persistent tachycardia, and persistent hypoxia requiring 4 L of nasal cannula oxygen As well as intermittent BiPAP, continue current management 08/11/2020; patient continues to require 4 L of nasal cannula oxygen, and persistent tachycardia probably secondary to hypoxia and underlying disease process Initially recommended IRU placement, waiting for insurance preapproval per lio brewster History Interval history: I have seen and examined the patient at the bedside patient's chart and medications reviewed Patient remains hypoxic requiring nasal cannula oxygen with intermittent BiPAP Patient has persistent tachycardia, on metoprolol 12.5 twice daily Patient complains of tiredness Vital signs are noted Hospitalist Physical - Constitutional Vitals: Temp Pulse Resp BP Pulse Ox 97.4 F L 114 H 20 108/70 95 08/11/20 12:46 08/11/20 12:46 08/11/20 12:46 08/11/20 12:46 08/11/20 12:46 General appearance: Present: mild distress, well-nourished - EENT Eyes: Present: PERRL, EOM intact - Neck Neck: Present: supple, normal ROM - Respiratory Respiratory effort: normal Respiratory: bilateral: diminished, rhonchi, negative: rales, wheezing - Cardiovascular Rhythm: regular Heart Sounds: Present: S1 & S2 - Extremities Extremities: no ischemia, No edema - Abdominal General gastrointestinal: soft, non-tender, non-distended, normal bowel sounds - Integumentary Integumentary: Present: clear, warm - Psychiatric Psychiatric: appropriate mood/affect, cooperative - Neurologic Neurologic: moves all extremities HEART Score - HEART Score Troponin: Troponin T 0.015 ng/mL (0.00-0.029) 07/07/20 10:00 Results - Labs CBC & Chem 7: 08/02/20 05:55 08/03/20 05:18 Labs: Laboratory Last Values WBC 12.4 K/mm3 (4.5-11.0) H 08/02/20 05:55 RBC 3.85 M/mm3 (3.65-5.03) 08/02/20 05:55 Hgb 12.3 gm/dl (11.8-15.2) 08/02/20 05:55 Hct 37.9 % (35.5-45.6) 08/02/20 05:55 MCV 99 fl (84-94) H 08/02/20 05:55 MCH 32 pg (28-32) 08/02/20 05:55 MCHC 33 % (32-34) 08/02/20 05:55 RDW 16.9 % (13.2-15.2) H 08/02/20 05:55 Plt Count 267 K/mm3 (140-440) 08/02/20 05:55 Lymph % (Auto) 18.3 % (13.4-35.0) 08/02/20 05:55 [place] % (Auto) 9.7 % (0.0-7.3) H 08/02/20 05:55 Eos % (Auto) 3.3 % (0.0-4.3) 08/02/20 05:55 Baso % (Auto) 0.4 % (0.0-1.8) 08/02/20 05:55 Lymph # (Auto) 2.3 K/mm3 (1.2-5.4) 08/02/20 05:55 [place] # (Auto) 1.2 K/mm3 (0.0-0.8) H 08/02/20 05:55 Eos # (Auto) 0.4 K/mm3 (0.0-0.4) 08/02/20 05:55 Baso # (Auto) 0.1 K/mm3 (0.0-0.1) 08/02/20 05:55 Add Manual Diff Complete 07/13/20 08:31 Total Counted 100 07/13/20 08:31 Seg Neutrophils % 68.3 % (40.0-70.0) 08/02/20 05:55 Seg Neuts % (Manual) 96.0 % (40.0-70.0) H 07/13/20 08:31 Band Neutrophils % 0 % 07/13/20 08:31 Lymphocytes % (Manual) 2.0 % (13.4-35.0) L 07/13/20 08:31 Reactive Lymphs % (Man) 0 % 07/13/20 08:31 Monocytes % (Manual) 2.0 % (0.0-7.3) 07/13/20 08:31 Eosinophils % (Manual) 0 % (0.0-4.3) 07/13/20 08:31 Basophils % (Manual) 0 % (0.0-1.8) 07/13/20 08:31 Metamyelocytes % 0 % 07/13/20 08:31 Myelocytes % 0 % 07/13/20 08:31 Promyelocytes % 0 % 07/13/20 08:31 Blast Cells % 0 % 07/13/20 08:31 Nucleated RBC % Not Reportable 07/13/20 08:31 Seg Neutrophils # 8.5 K/mm3 (1.8-7.7) H 08/02/20 05:55 Seg Neutrophils # Man 20.4 K/mm3 (1.8-7.7) H 07/13/20 08:31 Band Neutrophils # 0.0 K/mm3 07/13/20 08:31 Lymphocytes # (Manual) 0.4 K/mm3 (1.2-5.4) L 07/13/20 08:31 Abs React Lymphs (Man) 0.0 K/mm3 07/13/20 08:31 Monocytes # (Manual) 0.4 K/mm3 (0.0-0.8) 07/13/20 08:31 Eosinophils # (Manual) 0.0 K/mm3 (0.0-0.4) 07/13/20 08:31 Basophils # (Manual) 0.0 K/mm3 (0.0-0.1) 07/13/20 08:31 Metamyelocytes # 0.0 K/mm3 07/13/20 08:31 Myelocytes # 0.0 K/mm3 07/13/20 08:31 Promyelocytes # 0.0 K/mm3 07/13/20 08:31 Blast Cells # 0.0 K/mm3 07/13/20 08:31 WBC Morphology Not Reportable 07/13/20 08:31 Hypersegmented Neuts Not Reportable 07/13/20 08:31 Hyposegmented Neuts Not Reportable 07/13/20 08:31 Hypogranular Neuts Not Reportable 07/13/20 08:31 Smudge Cells Not Reportable 07/13/20 08:31 Toxic Granulation Not Reportable 07/13/20 08:31 Toxic Vacuolation Not Reportable 07/13/20 08:31 Dohle Bodies Not Reportable 07/13/20 08:31 Pelger-Huet Anomaly Not Reportable 07/13/20 08:31 Jason Rods Not Reportable 07/13/20 08:31 Platelet Estimate Consistent w auto 07/13/20 08:31 Clumped Platelets Not Reportable 07/13/20 08:31 Plt Clumps, EDTA Not Reportable 07/13/20 08:31 Large Platelets Not Reportable 07/13/20 08:31 Giant Platelets Not Reportable 07/13/20 08:31 Platelet Satelliting Not Reportable 07/13/20 08:31 Plt Morphology Comment Not Reportable 07/13/20 08:31 RBC Morphology Not Reportable 07/13/20 08:31 Dimorphic RBCs Not Reportable 07/13/20 08:31 Polychromasia Not Reportable 07/13/20 08:31 Hypochromasia Not Reportable 07/13/20 08:31 Poikilocytosis Not Reportable 07/13/20 08:31 Anisocytosis Not Reportable 07/13/20 08:31 Microcytosis Not Reportable 07/13/20 08:31 Macrocytosis Not Reportable 07/13/20 08:31 Spherocytes Not Reportable 07/13/20 08:31 Pappenheimer Bodies Not Reportable 07/13/20 08:31 Sickle Cells Not Reportable 07/13/20 08:31 Target Cells Not Reportable 07/13/20 08:31 Tear Drop Cells Not Reportable 07/13/20 08:31 Ovalocytes Not Reportable 07/13/20 08:31 Stomatocytes Few 07/13/20 08:31 Helmet Cells Not Reportable 07/13/20 08:31 [place] Bodies Not Reportable 07/13/20 08:31 Hilger Rings Not Reportable 07/13/20 08:31 Izabella Cells Not Reportable 07/13/20 08:31 Bite Cells Not Reportable 07/13/20 08:31 Crenated Cell Not Reportable 07/13/20 08:31 Elliptocytes Not Reportable 07/13/20 08:31 Acanthocytes (Spur) Not Reportable 07/13/20 08:31 Rouleaux Not Reportable 07/13/20 08:31 Hemoglobin C Crystals Not Reportable 07/13/20 08:31 Schistocytes Not Reportable 07/13/20 08:31 Malaria parasites Not Reportable 07/13/20 08:31 Josue Bodies Not Reportable 07/13/20 08:31 Hem Pathologist Commnt No 07/13/20 08:31 PT 11.8 Sec. (12.2-14.9) L 06/22/20 14:29 INR 0.88 (0.87-1.13) 06/22/20 14:29 APTT 23.5 Sec. (24.2-36.6) L 06/22/20 14:29 D-Dimer 1887.82 ng/mlDDU (0-234) H 05/20/20 08:16 Heparin Anti-Xa Level 0.37 U.I./ml (0.3-0.7) 07/02/20 16:08 ABG pH 7.477 (7.320-7.450) H 07/13/20 13:52 POC ABG pCO2 54.4 mmHg (32.0-48.0) H 07/13/20 13:52 ABG pCO2 53.1 mm Hg 07/08/20 Unknown POC ABG pO2 126.8 mmHg (83-108) H 07/13/20 13:52 ABG pO2 75.3 mm Hg (80.0-90.0) L 07/08/20 Unknown POC ABG HCO3 39.3 07/13/20 13:52 ABG HCO3 34.3 mmol/L (20.0-26.0) H 07/08/20 Unknown ABG O2 Saturation 96.5 % (95.0-99.0) 07/08/20 Unknown ABG O2 Content 13.5 (0.0-44) 07/08/20 Unknown POC ABG Base Excess 13.8 07/13/20 13:52 ABG Base Excess 8.7 mmol/L (-2.0-3.0) H 07/08/20 Unknown ABG Hemoglobin 11.5 (12.0-17.5) L 07/13/20 13:52 ABG Oxyhemoglobin 97.7 (94-98) 07/13/20 13:52 ABG Carboxyhemoglobin 2.4 % (0.0-5.0) 07/08/20 Unknown ABG Methemoglobin 0 (0.0-1.5) 07/13/20 13:52 ABG Sodium 136.2 mmol/L (136.0-145.0) 07/13/20 13:52 ABG Potassium 3.2 mmol/L (3.40-4.50) L 07/13/20 13:52 ABG Chloride 92.0 mmol/L (98-107) L 07/13/20 13:52 ABG Glucose 169 mg/dL (65-95) H 07/13/20 13:52 Oxyhemoglobin 93.7 % (95.0-99.0) L 07/08/20 Unknown Carboxyhemoglobin 1.2 (0.5-1.5) 07/13/20 13:52 FiO2 45 07/13/20 13:52 Sodium 142 mmol/L (137-145) 08/03/20 05:18 Potassium 3.8 mmol/L (3.6-5.0) D 08/03/20 05:18 Chloride 100.0 mmol/L (98-107) 08/03/20 05:18 Carbon Dioxide 32 mmol/L (22-30) H D 08/03/20 05:18 Anion Gap 14 mmol/L 08/03/20 05:18 BUN 14 mg/dL (9-20) 08/03/20 05:18 Creatinine 0.4 mg/dL (0.8-1.3) L 08/03/20 05:18 Estimated GFR > 60 ml/min 08/03/20 05:18 BUN/Creatinine Ratio 35 % 08/03/20 05:18 Glucose 100 mg/dL (75-100) 08/03/20 05:18 POC Glucose 114 mg/dL (70-105) H 08/11/20 12:07 Lactic Acid 0.80 mmol/L (0.7-2.0) 07/13/20 15:45 Calcium 9.3 mg/dL (8.4-10.2) 08/03/20 05:18 Phosphorus 3.10 mg/dL (2.5-4.5) 06/15/20 04:00 Magnesium 2.00 mg/dL (1.7-2.3) 07/24/20 05:05 Ferritin 1496.0 ng/mL (30.0-300.0) H 06/14/20 11:50 Total Bilirubin 0.30 mg/dL (0.1-1.2) 08/02/20 05:55 Direct Bilirubin 0.6 mg/dL (0-0.2) H 05/11/20 07:30 Indirect Bilirubin 0.9 mg/dL 05/11/20 07:30 AST 37 units/L (5-40) 08/02/20 05:55 ALT 118 units/L (7-56) H 08/02/20 05:55 Alkaline Phosphatase 88 units/L (35-129) 08/02/20 05:55 Lactate Dehydrogenase 705 units/L (91-180) H 05/20/20 08:16 Troponin T 0.015 ng/mL (0.00-0.029) 07/07/20 10:00 C-Reactive Protein 3.10 mg/dL (0.00-1.30) H 05/20/20 08:16 Total Protein 6.4 g/dL (6.3-8.2) 08/02/20 05:55 Albumin 3.3 g/dL (3.9-5) L 08/02/20 05:55 Albumin/Globulin Ratio 1.1 % 08/02/20 05:55 Triglycerides 452 mg/dL (2-149) H 06/30/20 07:00 Lipase 86 units/L (13-60) H 06/29/20 09:36 Procalcitonin 2.15 ng/mL (<0.15) 07/15/20 05:31 Arterial Blood Glucose 169 mg/dL (65-95) H 07/13/20 13:52 Arterial Blood Ionized Calcium 4.8 mg/dL (4.6-5.3) 07/13/20 13:52 Urine Color Fauzia (Yellow) 05/10/20 Unknown Urine Turbidity Clear (Clear) 05/10/20 Unknown Urine pH 5.0 (5.0-7.0) 05/10/20 Unknown Ur Specific [place] 1.019 (1.003-1.030) 05/10/20 Unknown Urine Protein 100 mg/dl mg/dL (Negative) 05/10/20 Unknown Urine Glucose (UA) Neg mg/dL (Negative) 05/10/20 Unknown Urine Ketones Neg mg/dL (Negative) 05/10/20 Unknown Urine Blood Lg (Negative) 05/10/20 Unknown Urine Nitrite Neg (Negative) 05/10/20 Unknown Urine Bilirubin Neg (Negative) 05/10/20 Unknown Urine Urobilinogen 2.0 mg/dL (<2.0) 05/10/20 Unknown Ur Leukocyte Esterase Neg (Negative) 05/10/20 Unknown Urine WBC (Auto) 11.0 /HPF (0.0-6.0) H 05/10/20 Unknown Urine RBC (Auto) 2.0 /HPF (0.0-6.0) 05/10/20 Unknown U Epithel Cells (Auto) 1.0 /HPF (0-13.0) 05/10/20 Unknown Urine Bacteria (Auto) 1+ /HPF (Negative) 05/10/20 Unknown Urine Mucus Few /HPF 05/10/20 Unknown Plasma/Serum Alcohol < 0.01 % (0-0.07) 05/09/20 14:20 Coronavirus (PCR) Negative (Negative) 08/06/20 09:36 Hepatitis A Ab Total Nonreactive (Nonreactive) 07/09/20 Unknown Hep B Core Total Ab Nonreactive (Nonreactive) 07/09/20 Unknown Hepatitis C RNA Quant See scanned result 07/09/20 Unknown SARS-CoV-2 IgG Ab Reactive (NonReactive) A 05/11/20 07:30 Blood Type B POSITIVE 06/21/20 14:18 Antibody Screen Negative 06/21/20 14:18 Crossmatch See Detail 06/21/20 14:18 - Diagnostic Impressions Diagnostic Impressions: Echocardiogram 05/20/20 13:02 Transthoracic Echocardiogram Indication: CHF BP: 97/73 Conclusions *The study quality is technically very difficult and limited. *The left ventricular chamber size, wall thickness and systolic function are within normal limits. There are no wall motion abnormalities observed. Ejection fraction is normal. *The estimated ejection fraction is 60-65%. *The pericardium appears normal. Findings Procedure Info: The study quality is technically difficult. Left Ventricle: The left ventricular chamber size, wall thickness and systolic function are within normal limits. There are no wall motion abnormalities observed. Ejection fraction is normal. The estimated ejection fraction is 60-65%. Abnormal left ventricular diastolic filling is observed, consistent with impaired relaxation. Left Atrium: The left atrium is normal in size with no visual thrombus identified. Right Ventricle: The right ventricle is not well visualized. Right Atrium: The right atrium is not well visualized. Aortic Valve: The aortic valve is trileaflet. The leaflets are thin with normal excursion. There is no aortic stenosis or regurgitation present. Mitral Valve: The mitral valve appears normal in structure and function. Tricuspid Valve: The tricuspid valve appears normal in structure and function. Unable to estimate the right ventricular systolic pressure. Pulmonic Valve: The pulmonic valve is not well visualized. There is no evidence of pulmonic regurgitation. There is no pulmonic stenosis. Pericardium: The pericardium appears normal. Pulmonary Artery: The main pulmonary artery is not well visualized. Venous: The inferior vena cava appears normal in size. Measurements Chambers 2D Name Value Normal Range IVSd (2D) 0.83 cm (0.6 - 1.1) LVPWd (2D) 0.83 cm (0.6 - 1.1) LVIDd (2D) 3.88 cm (3.7 - 5.6) LVIDs (2D) 2.46 cm (2 - 3.8) LV FS (2D) 36.52 % - EF Teichholz (2D) 66.97 % - Ao root diameter (2D) 3.47 cm (2 - 3.7) Volumes/Mass Name Value Normal Range LA ESV SP 4CH (A/L) 22.4 ml - LA ESV SP 2CH (A/L) 22.89 ml - LA ESV BP (A/L) 23.06 ml - LA ESV SP 4CH (MOD) 21.09 ml - LA ESV SP 2CH (MOD) 22.44 ml - Diastolic/Systolic Function Name Value Normal Range MV E-wave Vmax 0.48 m/sec - MV deceleration time 156.3 msec - MV A-wave Vmax 0.59 m/sec - MV E:A ratio 0.81 ratio - Aortic Valve Name Value Normal Range AV Vmax 0.97 m/sec - AV VTI 14.49 cm - AV peak gradient 3.73 mmHg - AV mean gradient 1.89 mmHg - LVOT diameter 2.09 cm - LVOT Vmax 0.72 m/sec - LVOT VTI 10.21 cm - LVOT peak gradient 2.05 mmHg - LVOT mean gradient 1.03 mmHg - SV LVOT 35.17 ml - INNA (continuity Vmax) 2.55 cm2 - INNA (continuity VTI) 2.43 cm2 - Tricuspid Valve Name Value Normal Range TV E-wave Vmax 0.37 m/sec - Pulmonic Valve/Qp:Qs Name Value Normal Range PV Vmax 0.72 m/sec - PV peak gradient 2.06 mmHg - RVOT Vmax 0.85 m/sec - RVOT VTI 9.89 cm - RVOT peak gradient 2.9 mmHg - PV acceleration time 72.31 msec - Cantor/IV: Voiding Method Urinal IV Catheter Type [Right Wrist] INT / Saline Lock IV Catheter Type [Right Upper Peripheral IV arm] IV Catheter Type [Right CVL Internal Jugular] IV Catheter Type [Right Peripheral IV Forearm] IV Catheter Type [Left Forearm INT / Saline Lock ] IV Catheter Type [Left Wrist] INT / Saline Lock IV Catheter Type [Right Hand] INT / Saline Lock IV Catheter Type [Left Hand] INT / Saline Lock IV Catheter Type [Left Peripheral IV Antecubital] Active Medications - Current Medications Current Medications: Generic Name Dose Route Start Last Admin Trade Name Freq PRN Reason Stop Dose Admin Acetaminophen 650 mg 08/07/20 10:06 Acetaminophen 325 Mg Tab PO Q4H PRN Pain, Mild (1-3) Alprazolam 0.25 mg 05/20/20 17:53 07/26/20 09:37 Alprazolam 0.25 Mg Tab PO 0.25 mg Q8H PRN Administration Anxiety Lipase/Protease/Amylase 1 each 05/22/20 13:01 Lipase 10,500/Protease 25,000/Amylase 43,750 (Units) Dr Newell FEEDTUBE PRN PRN For Clogged Feeding Tube Bisacodyl 10 mg 07/14/20 11:00 Bisacodyl 10 Mg Rect Supp ME BID PRN Laxative Effect Enoxaparin Sodium 40 mg 07/29/20 22:00 08/10/20 22:18 Enoxaparin 40 Mg/0.4 Ml Inj SUB-Q 40 mg QDAY@2200 DESIRE Administration Protocol Folic Acid 1 mg 05/09/20 15:36 08/11/20 11:59 Folic Acid 1 Mg Tab PO 1 mg QDAY DESIRE Administration Guaifenesin 600 mg 07/19/20 23:00 08/11/20 11:59 Guaifenesin Er 600 Mg Tab PO 600 mg BID DESIRE Administration Hydrophilic Ointment 1 applic 05/21/20 20:33 Lip Therapy Vaseline TP Q2HR PRN Dry Lips Insulin Human Lispro 0 unit 07/31/20 07:30 08/11/20 16:49 Insulin Lispro 100 Unit/Ml SUB-Q Not Given ACHS [facility] Protocol Lansoprazole 30 mg 06/28/20 10:00 08/11/20 11:59 Lansoprazole 30 Mg Solutab FEEDTUBE 30 mg QDAY DESIRE Administration Metoprolol Tartrate 5 mg 07/02/20 17:17 07/08/20 14:38 Metoprolol Tartrate 5 Mg/5 Ml Inj IV 5 mg Q6HR PRN Administration Tachyarrhythmias Metoprolol Tartrate 12.5 mg 07/17/20 12:00 08/11/20 11:59 Metoprolol Tartrate 25 Mg Tab PO 12.5 mg BID DESIRE Administration Multi-Ingred Cream/Lotion/Oil/Oint 1 applic 05/21/20 20:33 Mineral Oil/Petrolatum, White Ophth Oint 3.5 Gm OU Q4HR PRN Dry Eye(s) Olanzapine 5 mg 07/17/20 22:00 08/10/20 22:19 Olanzapine 5 Mg Tab PO 5 mg QHS DESIRE Administration Phenobarbital 32.4 mg 07/04/20 22:00 08/11/20 11:59 Phenobarbital 32.4 Mg Tab PO 32.4 mg BID DESIRE Administration Pseudoephedrine/Acetam/Chlorphenir 10 ml 08/07/20 11:12 Guaifenesin/Codeine 100-10mg Oral Liqd 5 Ml PO Q4H PRN Cough Quetiapine Fumarate 200 mg 07/16/20 10:00 08/11/20 11:59 Quetiapine 200 Mg Tab PO 200 mg QAM DESIRE Administration Senna 17.2 mg 07/14/20 11:00 08/03/20 16:46 Sennosides 8.6 Mg Tab PO 8.6 mg BID PRN Administration Laxative Effect Nutrition/Malnutrition Assess - Dietary Evaluation Nutrition/Malnutrition Findings: Nutrition Notes Start: 05/17/20 14:10 Freq: Status: Active Protocol: Document 08/11/20 12:56 EN (Rec: 08/11/20 13:00 EN [id number]) Co-Sign 08/11/20 12:56 MK Nutrition Notes Initial or Follow up Reassessment Current Diagnosis Acute Kidney Injury,Decubitus( Pressure Ulcer),Sepsis, Respiratory Failure Other Pertinent Diagnosis Bilat pneu, COVID-19 (-), EtOH dependence Current Diet Regular diet Labs/Tests Reviewed Pertinent Medications Reviewed Height 6 ft Weight 96 kg [place] Body Weight (kg) 80.90 BMI 28.7 Weight Status Overweight Subjective/Other Information F/u for intakes, Sammy and ONS tolerance. Pt reports consuming 100% of meals with a good appetite. Pt denies N/V/ D. Pt states that he has been drinking 100% of ONS and receiving Sammy BID via diet [place]. Percent of energy/protein needs met: 100%/100% Burn Absent Trauma Absent GI Symptoms None Current % PO Good (75-100%) Minimum of two criteria Yes Interpretation of Weight Loss (severe) >5% in 1 month Muscle Mass Mild Depletion (non-severe) #3 Nutrition Diagnosis Malnutrition Diagnosis Progress(for reassessment Continues documentation) #2 Nutrition Diagnosis Increased nutrient needs ( specify in comment below) Diagnosis Progress(for reassessment Continues documentation) Is patient on ventilator? No Is Patient Ambulatory and/or Out of Bed No REE-([facility]-confined to bed) 2227.344 Kcal/Kg value to use for calculation 21 Approximate Energy Requirements Using 2016 kcal/Kg Calculation Used for Recommendations Kcal/kg Additional Notes Protein: 106-134 g (1.2-1.5 g/ kg AdBW 89 kg) Fluid: 1ml/kcal Nutrition Intervention Change Diet Order: Continue diet Add Supplement/Snack (indicate name/kcal Ensure High Protein daily /protein ) Sammy BID Provides kCal: 350 Provides Protein (gm) 21 Goal #1 Meet at least 75% protein and energy needs via PO Goal #2 ONS tolerance Goal #3 Intake of Sammy BID Anticipated Discharge Needs: Regular, healthful diet and Sammy BID and increased protein intake until pressure ulcer is healed. Follow-Up By: 08/18/20 Additional Comments F/u stable intakes, ONS and Sammy tolerance/intake
--- NOTE | 2020-08-11 18:00 | Progress Note ---
Assessment and Plan Assessment and plan: Positive COVID-19 test; 05/10/2020 Negative COVID-19 test; 06/30/2020 --Acute hypoxemic resp failure; oxygen dependent on 4 L NC, requiring intermittent BiPAP Due to COVID-19 pneumonia --Persistent sinus tachycardia: Multifactorial We will closely monitor --Severe COVID-19 bilateral pneumonia Coronavirus protocol: Completed steroids and remdesivir therapy, isolation precautions, Received management per COVID-19 protocol Repeat ivory PCR test negative on 06/30/2020 Isolation discontinued --Pneumothorax status post right chest tube Chest tube removed 07/23/2020 Post removal chest x-ray no pneumothorax Patient is requiring 3 to 4 L nasal cannula And intermittent BiPAP --Severe hypokalemia; resolved --Elevated D-dimers; Patient had CTA chest ; negative for PE, patient already had lower extremity venous Doppler which was negative for DVT We will discontinue empiric therapeutic Lovenox, and change to DVT prophylaxis dose 40 mg subcu daily --Pseudomonas bacteremia; ID following, completed cefepime Monitor off antibiotics --Severe sepsis/septic shock, monitor off pressors Completed cefepime, monitor off antibiotics -- Acute kidney injury (SEN) , likely vasomotor nephropathy Resolved, avoid nephrotoxins --Acute on chronic anemia Guaiac test positive, GI evaluated the patient Patient H&H is normal range now Hb 11.8 -- Elevated liver function tests; resolved LFTs within normal limits --Colonic distention GI evaluated colonic distention resolved recommend stool softeners -- DVT prophylaxis On therapeutic Lovenox Chest tube removed Patient on 10 L nasal cannula oxygen, wean as tolerated Elevated D-dimers, on empiric therapeutic Lovenox CTA chest negative for PE,LE DVT negative, therapeutic Lovenox DC'd Changed to prophylactic Lovenox Discharge planning per case management reports that IRU is evaluating the patient for placement Patient is medically stable for discharge awaiting placement 07/23/2020; patient remains on high flow oxygen, wean oxygen as tolerated, severe hypokalemia Replenish per protocol monitor levels 07/24/2020; patient had chest tube removal yesterday 07/23/2019 and, post removal chest x-ray no pneumothorax no acute abnormalities Patient feels slightly better continues to require high flow oxygen Wean as tolerated, physical and occupational therapy, DC planning 07/26/2020; patient on 3 L nasal cannula oxygen, patient feels better 07/27/2020; patient was saturating well on 3 L of nasal cannula oxygen, however today patient is on high flow oxygen 15 L Complains of some congestion, wean oxygen levels to 3-5 as tolerated Discharge planning LTAC has refused patient,Possible home with home health versus placement when medically stable 07/28/2020; continue to wean oxygen, patient is on 10 L, awaiting placement 07/29/2020; continues to be on 10 L nasal cannula oxygen, wean as tolerated Patient is on empiric therapeutic dose Lovenox, due to elevated D-dimers Patient is stable for CTA chest today, follow the report and adjust Lovenox as needed DC planning per case management, with pending placement 07/30/2020; patient feels slightly better, oxygen reduced to 8 L of nasal cannula Will check PT OT, pending placement 07/31/2020 :Patient on 8 L of nasal cannula oxygen 08/03/2020; patient's oxygen requirement has come down to 3-4 and half liters nasal cannula Will try to wean oxygen as tolerated, respiratory therapist assisting to reach the goal Possible discharge home in 1 to 2 days if stable Plan of care reviewed with the patient and his nurse 08/04/2020; patient is requiring 3 to 4 L nasal cannula oxygen, case management to set up home oxygen Patient is hemodynamically and clinically stable for discharge, pending placement [facility] And of care reviewed with the patient and his nurse as well as the case management 08/05/2020 ; COVID-19 test requested , patient is hemodynamically and clinically stable for discharge Patient is requiring 4 L of nasal cannula oxygen . medically stable for discharge 08/06/2020; patient is hemodynamically and clinically stable for discharge and transfer to IRU unit today Pre-discharge COVID-19 test is negative, pending insurance authorization 08/07/20; patient is accepted by inpatient rehab unit for admission, pending insurance authorization Stable for discharge 08/08/2020; patient is stable for discharge to inpatient rehab unit, pending insurance approval 08/09/2020; employment case manager reports that insurance has not approved inpatient rehab placement for this patient Will evaluate for home oxygen, set up home oxygen if eligible, and plan discharge home with home health when patient is hemodynamically stable 08/10/2020; patient continues to have persistent tachycardia, and persistent hypoxia requiring 4 L of nasal cannula oxygen As well as intermittent BiPAP, continue current management 08/11/2020; patient continues to require oxygen and intermittent BiPAP, awaiting IRU placement Versus home with home health and home oxygen, DC planning per case management History Interval history: I have seen and examined the patient at the bedside With intermittent BiPAP, patient has persistent tachycardia Patient looks cachectic chronically ill looking Vital signs noted Hospitalist Physical - Constitutional Vitals: Temp Pulse Resp BP Pulse Ox 97.4 F L 114 H 20 108/70 95 08/11/20 12:46 08/11/20 12:46 08/11/20 12:46 08/11/20 12:46 08/11/20 12:46 General appearance: Present: no acute distress, well-nourished - EENT Eyes: Present: PERRL, EOM intact - Neck Neck: Present: supple, normal ROM - Respiratory Respiratory effort: normal Respiratory: bilateral: diminished, negative: rales, rhonchi, wheezing - Cardiovascular Rhythm: regular Heart Sounds: Present: S1 & S2 - Extremities Extremities: no ischemia, No edema - Abdominal General gastrointestinal: soft, non-tender, non-distended, normal bowel sounds - Integumentary Integumentary: Present: clear, warm - Psychiatric Psychiatric: appropriate mood/affect, cooperative - Neurologic Neurologic: CNII-XII intact, moves all extremities HEART Score - HEART Score Troponin: Troponin T 0.015 ng/mL (0.00-0.029) 07/07/20 10:00 Results - Labs CBC & Chem 7: 08/02/20 05:55 08/03/20 05:18 Labs: Laboratory Last Values WBC 12.4 K/mm3 (4.5-11.0) H 08/02/20 05:55 RBC 3.85 M/mm3 (3.65-5.03) 08/02/20 05:55 Hgb 12.3 gm/dl (11.8-15.2) 08/02/20 05:55 Hct 37.9 % (35.5-45.6) 08/02/20 05:55 MCV 99 fl (84-94) H 08/02/20 05:55 MCH 32 pg (28-32) 08/02/20 05:55 MCHC 33 % (32-34) 08/02/20 05:55 RDW 16.9 % (13.2-15.2) H 08/02/20 05:55 Plt Count 267 K/mm3 (140-440) 08/02/20 05:55 Lymph % (Auto) 18.3 % (13.4-35.0) 08/02/20 05:55 Owsley % (Auto) 9.7 % (0.0-7.3) H 08/02/20 05:55 Eos % (Auto) 3.3 % (0.0-4.3) 08/02/20 05:55 Baso % (Auto) 0.4 % (0.0-1.8) 08/02/20 05:55 Lymph # (Auto) 2.3 K/mm3 (1.2-5.4) 08/02/20 05:55 Owsley # (Auto) 1.2 K/mm3 (0.0-0.8) H 08/02/20 05:55 Eos # (Auto) 0.4 K/mm3 (0.0-0.4) 08/02/20 05:55 Baso # (Auto) 0.1 K/mm3 (0.0-0.1) 08/02/20 05:55 Add Manual Diff Complete 07/13/20 08:31 Total Counted 100 07/13/20 08:31 Seg Neutrophils % 68.3 % (40.0-70.0) 08/02/20 05:55 Seg Neuts % (Manual) 96.0 % (40.0-70.0) H 07/13/20 08:31 Band Neutrophils % 0 % 07/13/20 08:31 Lymphocytes % (Manual) 2.0 % (13.4-35.0) L 07/13/20 08:31 Reactive Lymphs % (Man) 0 % 07/13/20 08:31 Monocytes % (Manual) 2.0 % (0.0-7.3) 07/13/20 08:31 Eosinophils % (Manual) 0 % (0.0-4.3) 07/13/20 08:31 Basophils % (Manual) 0 % (0.0-1.8) 07/13/20 08:31 Metamyelocytes % 0 % 07/13/20 08:31 Myelocytes % 0 % 07/13/20 08:31 Promyelocytes % 0 % 07/13/20 08:31 Blast Cells % 0 % 07/13/20 08:31 Nucleated RBC % Not Reportable 07/13/20 08:31 Seg Neutrophils # 8.5 K/mm3 (1.8-7.7) H 08/02/20 05:55 Seg Neutrophils # Man 20.4 K/mm3 (1.8-7.7) H 07/13/20 08:31 Band Neutrophils # 0.0 K/mm3 07/13/20 08:31 Lymphocytes # (Manual) 0.4 K/mm3 (1.2-5.4) L 07/13/20 08:31 Abs React Lymphs (Man) 0.0 K/mm3 07/13/20 08:31 Monocytes # (Manual) 0.4 K/mm3 (0.0-0.8) 07/13/20 08:31 Eosinophils # (Manual) 0.0 K/mm3 (0.0-0.4) 07/13/20 08:31 Basophils # (Manual) 0.0 K/mm3 (0.0-0.1) 07/13/20 08:31 Metamyelocytes # 0.0 K/mm3 07/13/20 08:31 Myelocytes # 0.0 K/mm3 07/13/20 08:31 Promyelocytes # 0.0 K/mm3 07/13/20 08:31 Blast Cells # 0.0 K/mm3 07/13/20 08:31 WBC Morphology Not Reportable 07/13/20 08:31 Hypersegmented Neuts Not Reportable 07/13/20 08:31 Hyposegmented Neuts Not Reportable 07/13/20 08:31 Hypogranular Neuts Not Reportable 07/13/20 08:31 Smudge Cells Not Reportable 07/13/20 08:31 Toxic Granulation Not Reportable 07/13/20 08:31 Toxic Vacuolation Not Reportable 07/13/20 08:31 Dohle Bodies Not Reportable 07/13/20 08:31 Pelger-Huet Anomaly Not Reportable 07/13/20 08:31 Jason Rods Not Reportable 07/13/20 08:31 Platelet Estimate Consistent w auto 07/13/20 08:31 Clumped Platelets Not Reportable 07/13/20 08:31 Plt Clumps, EDTA Not Reportable 07/13/20 08:31 Large Platelets Not Reportable 07/13/20 08:31 Giant Platelets Not Reportable 07/13/20 08:31 Platelet Satelliting Not Reportable 07/13/20 08:31 Plt Morphology Comment Not Reportable 07/13/20 08:31 RBC Morphology Not Reportable 07/13/20 08:31 Dimorphic RBCs Not Reportable 07/13/20 08:31 Polychromasia Not Reportable 07/13/20 08:31 Hypochromasia Not Reportable 07/13/20 08:31 Poikilocytosis Not Reportable 07/13/20 08:31 Anisocytosis Not Reportable 07/13/20 08:31 Microcytosis Not Reportable 07/13/20 08:31 Macrocytosis Not Reportable 07/13/20 08:31 Spherocytes Not Reportable 07/13/20 08:31 Pappenheimer Bodies Not Reportable 07/13/20 08:31 Sickle Cells Not Reportable 07/13/20 08:31 Target Cells Not Reportable 07/13/20 08:31 Tear Drop Cells Not Reportable 07/13/20 08:31 Ovalocytes Not Reportable 07/13/20 08:31 Stomatocytes Few 07/13/20 08:31 Helmet Cells Not Reportable 07/13/20 08:31 Sinclair-Patmos Bodies Not Reportable 07/13/20 08:31 [place] Rings Not Reportable 07/13/20 08:31 Nutrioso Cells Not Reportable 07/13/20 08:31 Bite Cells Not Reportable 07/13/20 08:31 Crenated Cell Not Reportable 07/13/20 08:31 Elliptocytes Not Reportable 07/13/20 08:31 Acanthocytes (Spur) Not Reportable 07/13/20 08:31 Rouleaux Not Reportable 07/13/20 08:31 Hemoglobin C Crystals Not Reportable 07/13/20 08:31 Schistocytes Not Reportable 07/13/20 08:31 Malaria parasites Not Reportable 07/13/20 08:31 Josue Bodies Not Reportable 07/13/20 08:31 Hem Pathologist Commnt No 07/13/20 08:31 PT 11.8 Sec. (12.2-14.9) L 06/22/20 14:29 INR 0.88 (0.87-1.13) 06/22/20 14:29 APTT 23.5 Sec. (24.2-36.6) L 06/22/20 14:29 D-Dimer 1887.82 ng/mlDDU (0-234) H 05/20/20 08:16 Heparin Anti-Xa Level 0.37 U.I./ml (0.3-0.7) 07/02/20 16:08 ABG pH 7.477 (7.320-7.450) H 07/13/20 13:52 POC ABG pCO2 54.4 mmHg (32.0-48.0) H 07/13/20 13:52 ABG pCO2 53.1 mm Hg 07/08/20 Unknown POC ABG pO2 126.8 mmHg (83-108) H 07/13/20 13:52 ABG pO2 75.3 mm Hg (80.0-90.0) L 07/08/20 Unknown POC ABG HCO3 39.3 07/13/20 13:52 ABG HCO3 34.3 mmol/L (20.0-26.0) H 07/08/20 Unknown ABG O2 Saturation 96.5 % (95.0-99.0) 07/08/20 Unknown ABG O2 Content 13.5 (0.0-44) 07/08/20 Unknown POC ABG Base Excess 13.8 07/13/20 13:52 ABG Base Excess 8.7 mmol/L (-2.0-3.0) H 07/08/20 Unknown ABG Hemoglobin 11.5 (12.0-17.5) L 07/13/20 13:52 ABG Oxyhemoglobin 97.7 (94-98) 07/13/20 13:52 ABG Carboxyhemoglobin 2.4 % (0.0-5.0) 07/08/20 Unknown ABG Methemoglobin 0 (0.0-1.5) 07/13/20 13:52 ABG Sodium 136.2 mmol/L (136.0-145.0) 07/13/20 13:52 ABG Potassium 3.2 mmol/L (3.40-4.50) L 07/13/20 13:52 ABG Chloride 92.0 mmol/L (98-107) L 07/13/20 13:52 ABG Glucose 169 mg/dL (65-95) H 07/13/20 13:52 Oxyhemoglobin 93.7 % (95.0-99.0) L 07/08/20 Unknown Carboxyhemoglobin 1.2 (0.5-1.5) 07/13/20 13:52 FiO2 45 07/13/20 13:52 Sodium 142 mmol/L (137-145) 08/03/20 05:18 Potassium 3.8 mmol/L (3.6-5.0) D 08/03/20 05:18 Chloride 100.0 mmol/L (98-107) 08/03/20 05:18 Carbon Dioxide 32 mmol/L (22-30) H D 08/03/20 05:18 Anion Gap 14 mmol/L 08/03/20 05:18 BUN 14 mg/dL (9-20) 08/03/20 05:18 Creatinine 0.4 mg/dL (0.8-1.3) L 08/03/20 05:18 Estimated GFR > 60 ml/min 08/03/20 05:18 BUN/Creatinine Ratio 35 % 08/03/20 05:18 Glucose 100 mg/dL (75-100) 08/03/20 05:18 POC Glucose 114 mg/dL (70-105) H 08/11/20 12:07 Lactic Acid 0.80 mmol/L (0.7-2.0) 07/13/20 15:45 Calcium 9.3 mg/dL (8.4-10.2) 08/03/20 05:18 Phosphorus 3.10 mg/dL (2.5-4.5) 06/15/20 04:00 Magnesium 2.00 mg/dL (1.7-2.3) 07/24/20 05:05 Ferritin 1496.0 ng/mL (30.0-300.0) H 06/14/20 11:50 Total Bilirubin 0.30 mg/dL (0.1-1.2) 08/02/20 05:55 Direct Bilirubin 0.6 mg/dL (0-0.2) H 05/11/20 07:30 Indirect Bilirubin 0.9 mg/dL 05/11/20 07:30 AST 37 units/L (5-40) 08/02/20 05:55 ALT 118 units/L (7-56) H 08/02/20 05:55 Alkaline Phosphatase 88 units/L (35-129) 08/02/20 05:55 Lactate Dehydrogenase 705 units/L (91-180) H 05/20/20 08:16 Troponin T 0.015 ng/mL (0.00-0.029) 07/07/20 10:00 C-Reactive Protein 3.10 mg/dL (0.00-1.30) H 05/20/20 08:16 Total Protein 6.4 g/dL (6.3-8.2) 08/02/20 05:55 Albumin 3.3 g/dL (3.9-5) L 08/02/20 05:55 Albumin/Globulin Ratio 1.1 % 08/02/20 05:55 Triglycerides 452 mg/dL (2-149) H 06/30/20 07:00 Lipase 86 units/L (13-60) H 06/29/20 09:36 Procalcitonin 2.15 ng/mL (<0.15) 07/15/20 05:31 Arterial Blood Glucose 169 mg/dL (65-95) H 07/13/20 13:52 Arterial Blood Ionized Calcium 4.8 mg/dL (4.6-5.3) 07/13/20 13:52 Urine Color Fauzia (Yellow) 05/10/20 Unknown Urine Turbidity Clear (Clear) 05/10/20 Unknown Urine pH 5.0 (5.0-7.0) 05/10/20 Unknown Ur Specific [place] 1.019 (1.003-1.030) 05/10/20 Unknown Urine Protein 100 mg/dl mg/dL (Negative) 05/10/20 Unknown Urine Glucose (UA) Neg mg/dL (Negative) 05/10/20 Unknown Urine Ketones Neg mg/dL (Negative) 05/10/20 Unknown Urine Blood Lg (Negative) 05/10/20 Unknown Urine Nitrite Neg (Negative) 05/10/20 Unknown Urine Bilirubin Neg (Negative) 05/10/20 Unknown Urine Urobilinogen 2.0 mg/dL (<2.0) 05/10/20 Unknown Ur Leukocyte Esterase Neg (Negative) 05/10/20 Unknown Urine WBC (Auto) 11.0 /HPF (0.0-6.0) H 05/10/20 Unknown Urine RBC (Auto) 2.0 /HPF (0.0-6.0) 05/10/20 Unknown U Epithel Cells (Auto) 1.0 /HPF (0-13.0) 05/10/20 Unknown Urine Bacteria (Auto) 1+ /HPF (Negative) 05/10/20 Unknown Urine Mucus Few /HPF 05/10/20 Unknown Plasma/Serum Alcohol < 0.01 % (0-0.07) 05/09/20 14:20 Coronavirus (PCR) Negative (Negative) 08/06/20 09:36 Hepatitis A Ab Total Nonreactive (Nonreactive) 07/09/20 Unknown Hep B Core Total Ab Nonreactive (Nonreactive) 07/09/20 Unknown Hepatitis C RNA Quant See scanned result 07/09/20 Unknown SARS-CoV-2 IgG Ab Reactive (NonReactive) A 05/11/20 07:30 Blood Type B POSITIVE 06/21/20 14:18 Antibody Screen Negative 06/21/20 14:18 Crossmatch See Detail 06/21/20 14:18 - Diagnostic Impressions Diagnostic Impressions: Echocardiogram 05/20/20 13:02 Transthoracic Echocardiogram Indication: CHF BP: 97/73 Conclusions *The study quality is technically very difficult and limited. *The left ventricular chamber size, wall thickness and systolic function are within normal limits. There are no wall motion abnormalities observed. Ejection fraction is normal. *The estimated ejection fraction is 60-65%. *The pericardium appears normal. Findings Procedure Info: The study quality is technically difficult. Left Ventricle: The left ventricular chamber size, wall thickness and systolic function are within normal limits. There are no wall motion abnormalities observed. Ejection fraction is normal. The estimated ejection fraction is 60-65%. Abnormal left ventricular diastolic filling is observed, consistent with impaired relaxation. Left Atrium: The left atrium is normal in size with no visual thrombus identified. Right Ventricle: The right ventricle is not well visualized. Right Atrium: The right atrium is not well visualized. Aortic Valve: The aortic valve is trileaflet. The leaflets are thin with normal excursion. There is no aortic stenosis or regurgitation present. Mitral Valve: The mitral valve appears normal in structure and function. Tricuspid Valve: The tricuspid valve appears normal in structure and function. Unable to estimate the right ventricular systolic pressure. Pulmonic Valve: The pulmonic valve is not well visualized. There is no evidence of pulmonic regurgitation. There is no pulmonic stenosis. Pericardium: The pericardium appears normal. Pulmonary Artery: The main pulmonary artery is not well visualized. Venous: The inferior vena cava appears normal in size. Measurements Chambers 2D Name Value Normal Range IVSd (2D) 0.83 cm (0.6 - 1.1) LVPWd (2D) 0.83 cm (0.6 - 1.1) LVIDd (2D) 3.88 cm (3.7 - 5.6) LVIDs (2D) 2.46 cm (2 - 3.8) LV FS (2D) 36.52 % - EF Teichholz (2D) 66.97 % - Ao root diameter (2D) 3.47 cm (2 - 3.7) Volumes/Mass Name Value Normal Range LA ESV SP 4CH (A/L) 22.4 ml - LA ESV SP 2CH (A/L) 22.89 ml - LA ESV BP (A/L) 23.06 ml - LA ESV SP 4CH (MOD) 21.09 ml - LA ESV SP 2CH (MOD) 22.44 ml - Diastolic/Systolic Function Name Value Normal Range MV E-wave Vmax 0.48 m/sec - MV deceleration time 156.3 msec - MV A-wave Vmax 0.59 m/sec - MV E:A ratio 0.81 ratio - Aortic Valve Name Value Normal Range AV Vmax 0.97 m/sec - AV VTI 14.49 cm - AV peak gradient 3.73 mmHg - AV mean gradient 1.89 mmHg - LVOT diameter 2.09 cm - LVOT Vmax 0.72 m/sec - LVOT VTI 10.21 cm - LVOT peak gradient 2.05 mmHg - LVOT mean gradient 1.03 mmHg - SV LVOT 35.17 ml - INNA (continuity Vmax) 2.55 cm2 - INNA (continuity VTI) 2.43 cm2 - Tricuspid Valve Name Value Normal Range TV E-wave Vmax 0.37 m/sec - Pulmonic Valve/Qp:Qs Name Value Normal Range PV Vmax 0.72 m/sec - PV peak gradient 2.06 mmHg - RVOT Vmax 0.85 m/sec - RVOT VTI 9.89 cm - RVOT peak gradient 2.9 mmHg - PV acceleration time 72.31 msec - Cantor/IV: Voiding Method Urinal IV Catheter Type [Right Wrist] INT / Saline Lock IV Catheter Type [Right Upper Peripheral IV arm] IV Catheter Type [Right CVL Internal Jugular] IV Catheter Type [Right Peripheral IV Forearm] IV Catheter Type [Left Forearm INT / Saline Lock ] IV Catheter Type [Left Wrist] INT / Saline Lock IV Catheter Type [Right Hand] INT / Saline Lock IV Catheter Type [Left Hand] INT / Saline Lock IV Catheter Type [Left Peripheral IV Antecubital] Active Medications - Current Medications Current Medications: Generic Name Dose Route Start Last Admin Trade Name Freq PRN Reason Stop Dose Admin Acetaminophen 650 mg 08/07/20 10:06 Acetaminophen 325 Mg Tab PO Q4H PRN Pain, Mild (1-3) Alprazolam 0.25 mg 05/20/20 17:53 07/26/20 09:37 Alprazolam 0.25 Mg Tab PO 0.25 mg Q8H PRN Administration Anxiety Lipase/Protease/Amylase 1 each 05/22/20 13:01 Lipase 10,500/Protease 25,000/Amylase 43,750 (Units) Dr Newell FEEDTUBE PRN PRN For Clogged Feeding Tube Bisacodyl 10 mg 07/14/20 11:00 Bisacodyl 10 Mg Rect Supp MI BID PRN Laxative Effect Enoxaparin Sodium 40 mg 07/29/20 22:00 08/10/20 22:18 Enoxaparin 40 Mg/0.4 Ml Inj SUB-Q 40 mg QDAY@2200 DESIRE Administration Protocol Folic Acid 1 mg 05/09/20 15:36 08/11/20 11:59 Folic Acid 1 Mg Tab PO 1 mg QDAY DESIRE Administration Guaifenesin 600 mg 07/19/20 23:00 08/11/20 11:59 Guaifenesin Er 600 Mg Tab PO 600 mg BID DESIRE Administration Hydrophilic Ointment 1 applic 05/21/20 20:33 Lip Therapy Vaseline TP Q2HR PRN Dry Lips Insulin Human Lispro 0 unit 07/31/20 07:30 08/11/20 16:49 Insulin Lispro 100 Unit/Ml SUB-Q Not Given ACHS DESIRE Protocol Lansoprazole 30 mg 06/28/20 10:00 08/11/20 11:59 Lansoprazole 30 Mg Solutab FEEDTUBE 30 mg QDAY DESIRE Administration Metoprolol Tartrate 5 mg 07/02/20 17:17 07/08/20 14:38 Metoprolol Tartrate 5 Mg/5 Ml Inj IV 5 mg Q6HR PRN Administration Tachyarrhythmias Metoprolol Tartrate 12.5 mg 07/17/20 12:00 08/11/20 11:59 Metoprolol Tartrate 25 Mg Tab PO 12.5 mg BID DESIRE Administration Multi-Ingred Cream/Lotion/Oil/Oint 1 applic 05/21/20 20:33 Mineral Oil/Petrolatum, White Ophth Oint 3.5 Gm OU Q4HR PRN Dry Eye(s) Olanzapine 5 mg 07/17/20 22:00 08/10/20 22:19 Olanzapine 5 Mg Tab PO 5 mg QHS DESIRE Administration Phenobarbital 32.4 mg 07/04/20 22:00 08/11/20 11:59 Phenobarbital 32.4 Mg Tab PO 32.4 mg BID DESIRE Administration Pseudoephedrine/Acetam/Chlorphenir 10 ml 08/07/20 11:12 Guaifenesin/Codeine 100-10mg Oral Liqd 5 Ml PO Q4H PRN Cough Quetiapine Fumarate 200 mg 07/16/20 10:00 08/11/20 11:59 Quetiapine 200 Mg Tab PO 200 mg QAM DESIRE Administration Senna 17.2 mg 07/14/20 11:00 08/03/20 16:46 Sennosides 8.6 Mg Tab PO 8.6 mg BID PRN Administration Laxative Effect Nutrition/Malnutrition Assess - Dietary Evaluation Nutrition/Malnutrition Findings: Nutrition Notes Start: 05/17/20 14:10 Freq: Status: Active Protocol: Document 08/11/20 12:56 EN (Rec: 08/11/20 13:00 EN [id number]) Co-Sign 08/11/20 12:56 MK Nutrition Notes Initial or Follow up Reassessment Current Diagnosis Acute Kidney Injury,Decubitus( Pressure Ulcer),Sepsis, Respiratory Failure Other Pertinent Diagnosis Bilat pneu, COVID-19 (-), EtOH dependence Current Diet Regular diet Labs/Tests Reviewed Pertinent Medications Reviewed Height 6 ft Weight 96 kg [place] Body Weight (kg) 80.90 BMI 28.7 Weight Status Overweight Subjective/Other Information F/u for intakes, Sammy and ONS tolerance. Pt reports consuming 100% of meals with a good appetite. Pt denies N/V/ D. Pt states that he has been drinking 100% of ONS and receiving Sammy BID via diet [place]. Percent of energy/protein needs met: 100%/100% Burn Absent Trauma Absent GI Symptoms None Current % PO Good (75-100%) Minimum of two criteria Yes Interpretation of Weight Loss (severe) >5% in 1 month Muscle Mass Mild Depletion (non-severe) #3 Nutrition Diagnosis Malnutrition Diagnosis Progress(for reassessment Continues documentation) #2 Nutrition Diagnosis Increased nutrient needs ( specify in comment below) Diagnosis Progress(for reassessment Continues documentation) Is patient on ventilator? No Is Patient Ambulatory and/or Out of Bed No REE-([facility]-confined to bed) [phone] Kcal/Kg value to use for calculation 21 Approximate Energy Requirements Using 2016 kcal/Kg Calculation Used for Recommendations Kcal/kg Additional Notes Protein: 106-134 g (1.2-1.5 g/ kg AdBW 89 kg) Fluid: 1ml/kcal Nutrition Intervention Change Diet Order: Continue diet Add Supplement/Snack (indicate name/kcal Ensure High Protein daily /protein ) Sammy BID Provides kCal: 350 Provides Protein (gm) 21 Goal #1 Meet at least 75% protein and energy needs via PO Goal #2 ONS tolerance Goal #3 Intake of Sammy BID Anticipated Discharge Needs: Regular, healthful diet and Sammy BID and increased protein intake until pressure ulcer is healed. Follow-Up By: 08/18/20 Additional Comments F/u stable intakes, ONS and Sammy tolerance/intake
[2020-08-11] MEDS: ENOXAPARIN 40 MG/0.4 ML INJ SUB-Q SCH (22:17)
[2020-08-12] MEDS: INSULIN LISPRO 100 UNIT/ML SUB-Q SCH ×4 (07:50→21:42)
[2020-08-12] MEDS: guaiFENesin ER 600 MG TAB PO SCH ×2 (09:50→21:17)
[2020-08-12] MEDS: FOLIC ACID 1 MG TAB PO SCH (09:51)
[2020-08-12] MEDS: QUEtiapine 200 MG TAB PO SCH (09:51)
[2020-08-12] MEDS: PHENobarbital 32.4 MG TAB PO SCH ×2 (09:51→21:17)
[2020-08-12] MEDS: METOPROLOL TARTRATE 25 MG TAB PO SCH ×3 (09:51→21:17)
[2020-08-12] MEDS: LANSOPRAZOLE 30 MG SOLUTAB FEEDTUBE SCH (09:51)
[2020-08-12] MEDS: METOPROLOL TARTRATE 5 MG/5 ML INJ IV PRN (13:35)
--- NOTE | 2020-08-12 19:01 | Progress Note ---
Assessment and Plan Assessment and plan: Positive COVID-19 test; 05/10/2020 Negative COVID-19 test; 06/30/2020 --Acute hypoxemic resp failure; oxygen dependent on 4 L NC, requiring intermittent BiPAP Due to COVID-19 pneumonia --Persistent sinus tachycardia: Multifactorial We will closely monitor --Severe COVID-19 bilateral pneumonia Coronavirus protocol: Completed steroids and remdesivir therapy, isolation precautions, Received management per COVID-19 protocol Repeat ivory PCR test negative on 06/30/2020 Isolation discontinued --Pneumothorax status post right chest tube Chest tube removed 07/23/2020 Post removal chest x-ray no pneumothorax Patient is requiring 3 to 4 L nasal cannula And intermittent BiPAP --Severe hypokalemia; resolved --Elevated D-dimers; Patient had CTA chest ; negative for PE, patient already had lower extremity venous Doppler which was negative for DVT --Pseudomonas bacteremia; ID following, completed cefepime Monitor off antibiotics --Severe sepsis/septic shock, monitor off pressors Completed cefepime, monitor off antibiotics -- Acute kidney injury (SEN) , likely vasomotor nephropathy Resolved, avoid nephrotoxins --Acute on chronic anemia Guaiac test positive, GI evaluated the patient Patient H&H is normal range now Hb 11.8 -- Elevated liver function tests; resolved LFTs within normal limits --Colonic distention GI evaluated colonic distention resolved recommend stool softeners -- DVT prophylaxis On therapeutic Lovenox Chest tube removed Patient on 10 L nasal cannula oxygen, wean as tolerated Elevated D-dimers, on empiric therapeutic Lovenox CTA chest negative for PE,LE DVT negative, therapeutic Lovenox DC'd Changed to prophylactic Lovenox Discharge planning per case management CM reports that IRU is evaluating the patient for placement Patient is medically stable for discharge Disposition; IRU placement versus home with home health Brief history and hospital course; Patient with pneumothorax status post chest tube placement and removal continues to require 4 to 5 L of nasal cannula oxygen, initially IRU placement was considered, insurance did not approve, daughter is trying for reconsideration for IRU placement, patient pending placement versus home with home health when stable 07/23/2020; patient remains on high flow oxygen, wean oxygen as tolerated, severe hypokalemia Replenish per protocol monitor levels 07/24/2020; patient had chest tube removal yesterday 07/23/2019 and, post removal chest x-ray no pneumothorax no acute abnormalities Patient feels slightly better continues to require high flow oxygen Wean as tolerated, physical and occupational therapy, DC planning 07/26/2020; patient on 3 L nasal cannula oxygen, patient feels better 07/27/2020; patient was saturating well on 3 L of nasal cannula oxygen, however today patient is on high flow oxygen 15 L Complains of some congestion, wean oxygen levels to 3-5 as tolerated Discharge planning LTAC has refused patient,Possible home with home health versus placement when medically stable 07/28/2020; continue to wean oxygen, patient is on 10 L, awaiting placement 07/29/2020; continues to be on 10 L nasal cannula oxygen, wean as tolerated Patient is on empiric therapeutic dose Lovenox, due to elevated D-dimers Patient is stable for CTA chest today, follow the report and adjust Lovenox as needed DC planning per case management, with pending placement 07/30/2020; patient feels slightly better, oxygen reduced to 8 L of nasal cannula Will check PT OT, pending placement 07/31/2020 :Patient on 8 L of nasal cannula oxygen 08/03/2020; patient's oxygen requirement has come down to 3-4 and half liters nasal cannula Will try to wean oxygen as tolerated, respiratory therapist assisting to reach the goal Possible discharge home in 1 to 2 days if stable Plan of care reviewed with the patient and his nurse 08/04/2020; patient is requiring 3 to 4 L nasal cannula oxygen, case management to set up home oxygen Patient is hemodynamically and clinically stable for discharge, pending placement [facility] And of care reviewed with the patient and his nurse as well as the case management 08/05/2020 ; COVID-19 test requested , patient is hemodynamically and clinically stable for discharge Patient is requiring 4 L of nasal cannula oxygen . medically stable for discharge 08/06/2020; patient is hemodynamically and clinically stable for discharge and transfer to IRU unit today Pre-discharge COVID-19 test is negative, pending insurance authorization 08/07/20; patient is accepted by inpatient rehab unit for admission, pending insurance authorization Stable for discharge 08/08/2020; patient is stable for discharge to inpatient rehab unit, pending insurance approval 08/09/2020; wrapper caser reports that insurance has not approved inpatient rehab placement for this patient Will evaluate for home oxygen, set up home oxygen if eligible, and plan discharge home with home health when patient is hemodynamically stable 08/10/2020; patient continues to have persistent tachycardia, and persistent hypoxia requiring 4 L of nasal cannula oxygen As well as intermittent BiPAP, continue current management 08/11/2020; patient continues to require oxygen and intermittent BiPAP, awaiting IRU placement Versus home with home health and home oxygen, DC planning per case management 08/12/2020; awaiting IRU placement versus home with home health on home oxygen History Interval history: I have seen and examined the patient at the bedside this morning Patient is still requiring 4 L of nasal cannula oxygen Persistent tachycardia Patient feels tired Vital signs noted Hospitalist Physical - Constitutional Vitals: Temp Pulse Resp BP Pulse Ox 99.8 F H 110 H 20 106/66 97 08/12/20 16:00 08/12/20 16:00 08/12/20 16:00 08/12/20 16:00 08/12/20 16:00 General appearance: Present: mild distress, well-nourished - EENT Eyes: Present: PERRL (My remote access is not working undergone and finished and I am tired to), EOM intact - Neck Neck: Present: supple, normal ROM (In 2 days in the last to sign off to make a) - Respiratory Respiratory effort: normal Respiratory: bilateral: diminished, negative: rales, rhonchi, wheezing - Cardiovascular Rhythm: regular Heart Sounds: Present: S1 & S2 (Tachycardia) - Extremities Extremities: no ischemia, No edema - Abdominal General gastrointestinal: soft, non-tender, non-distended, normal bowel sounds - Integumentary Integumentary: Present: clear, warm - Psychiatric Psychiatric: appropriate mood/affect, cooperative - Neurologic Neurologic: moves all extremities HEART Score - HEART Score Troponin: Troponin T 0.015 ng/mL (0.00-0.029) 07/07/20 10:00 Results - Labs CBC & Chem 7: 08/02/20 05:55 08/03/20 05:18 Labs: Laboratory Last Values WBC 12.4 K/mm3 (4.5-11.0) H 08/02/20 05:55 RBC 3.85 M/mm3 (3.65-5.03) 08/02/20 05:55 Hgb 12.3 gm/dl (11.8-15.2) 08/02/20 05:55 Hct 37.9 % (35.5-45.6) 08/02/20 05:55 MCV 99 fl (84-94) H 08/02/20 05:55 MCH 32 pg (28-32) 08/02/20 05:55 MCHC 33 % (32-34) 08/02/20 05:55 RDW 16.9 % (13.2-15.2) H 08/02/20 05:55 Plt Count 267 K/mm3 (140-440) 08/02/20 05:55 Lymph % (Auto) 18.3 % (13.4-35.0) 08/02/20 05:55 [place] % (Auto) 9.7 % (0.0-7.3) H 08/02/20 05:55 Eos % (Auto) 3.3 % (0.0-4.3) 08/02/20 05:55 Baso % (Auto) 0.4 % (0.0-1.8) 08/02/20 05:55 Lymph # (Auto) 2.3 K/mm3 (1.2-5.4) 08/02/20 05:55 Greene # (Auto) 1.2 K/mm3 (0.0-0.8) H 08/02/20 05:55 Eos # (Auto) 0.4 K/mm3 (0.0-0.4) 08/02/20 05:55 Baso # (Auto) 0.1 K/mm3 (0.0-0.1) 08/02/20 05:55 Add Manual Diff Complete 07/13/20 08:31 Total Counted 100 07/13/20 08:31 Seg Neutrophils % 68.3 % (40.0-70.0) 08/02/20 05:55 Seg Neuts % (Manual) 96.0 % (40.0-70.0) H 07/13/20 08:31 Band Neutrophils % 0 % 07/13/20 08:31 Lymphocytes % (Manual) 2.0 % (13.4-35.0) L 07/13/20 08:31 Reactive Lymphs % (Man) 0 % 07/13/20 08:31 Monocytes % (Manual) 2.0 % (0.0-7.3) 07/13/20 08:31 Eosinophils % (Manual) 0 % (0.0-4.3) 07/13/20 08:31 Basophils % (Manual) 0 % (0.0-1.8) 07/13/20 08:31 Metamyelocytes % 0 % 07/13/20 08:31 Myelocytes % 0 % 07/13/20 08:31 Promyelocytes % 0 % 07/13/20 08:31 Blast Cells % 0 % 07/13/20 08:31 Nucleated RBC % Not Reportable 07/13/20 08:31 Seg Neutrophils # 8.5 K/mm3 (1.8-7.7) H 08/02/20 05:55 Seg Neutrophils # Man 20.4 K/mm3 (1.8-7.7) H 07/13/20 08:31 Band Neutrophils # 0.0 K/mm3 07/13/20 08:31 Lymphocytes # (Manual) 0.4 K/mm3 (1.2-5.4) L 07/13/20 08:31 Abs React Lymphs (Man) 0.0 K/mm3 07/13/20 08:31 Monocytes # (Manual) 0.4 K/mm3 (0.0-0.8) 07/13/20 08:31 Eosinophils # (Manual) 0.0 K/mm3 (0.0-0.4) 07/13/20 08:31 Basophils # (Manual) 0.0 K/mm3 (0.0-0.1) 07/13/20 08:31 Metamyelocytes # 0.0 K/mm3 07/13/20 08:31 Myelocytes # 0.0 K/mm3 07/13/20 08:31 Promyelocytes # 0.0 K/mm3 07/13/20 08:31 Blast Cells # 0.0 K/mm3 07/13/20 08:31 WBC Morphology Not Reportable 07/13/20 08:31 Hypersegmented Neuts Not Reportable 07/13/20 08:31 Hyposegmented Neuts Not Reportable 07/13/20 08:31 Hypogranular Neuts Not Reportable 07/13/20 08:31 Smudge Cells Not Reportable 07/13/20 08:31 Toxic Granulation Not Reportable 07/13/20 08:31 Toxic Vacuolation Not Reportable 07/13/20 08:31 Dohle Bodies Not Reportable 07/13/20 08:31 Pelger-Huet Anomaly Not Reportable 07/13/20 08:31 Jason Rods Not Reportable 07/13/20 08:31 Platelet Estimate Consistent w auto 07/13/20 08:31 Clumped Platelets Not Reportable 07/13/20 08:31 Plt Clumps, EDTA Not Reportable 07/13/20 08:31 Large Platelets Not Reportable 07/13/20 08:31 Giant Platelets Not Reportable 07/13/20 08:31 Platelet Satelliting Not Reportable 07/13/20 08:31 Plt Morphology Comment Not Reportable 07/13/20 08:31 RBC Morphology Not Reportable 07/13/20 08:31 Dimorphic RBCs Not Reportable 07/13/20 08:31 Polychromasia Not Reportable 07/13/20 08:31 Hypochromasia Not Reportable 07/13/20 08:31 Poikilocytosis Not Reportable 07/13/20 08:31 Anisocytosis Not Reportable 07/13/20 08:31 Microcytosis Not Reportable 07/13/20 08:31 Macrocytosis Not Reportable 07/13/20 08:31 Spherocytes Not Reportable 07/13/20 08:31 Pappenheimer Bodies Not Reportable 07/13/20 08:31 Sickle Cells Not Reportable 07/13/20 08:31 Target Cells Not Reportable 07/13/20 08:31 Tear Drop Cells Not Reportable 07/13/20 08:31 Ovalocytes Not Reportable 07/13/20 08:31 Stomatocytes Few 07/13/20 08:31 Helmet Cells Not Reportable 07/13/20 08:31 [place] Bodies Not Reportable 07/13/20 08:31 [place] Rings Not Reportable 07/13/20 08:31 [place] Cells Not Reportable 07/13/20 08:31 Bite Cells Not Reportable 07/13/20 08:31 Crenated Cell Not Reportable 07/13/20 08:31 Elliptocytes Not Reportable 07/13/20 08:31 Acanthocytes (Spur) Not Reportable 07/13/20 08:31 Rouleaux Not Reportable 07/13/20 08:31 Hemoglobin C Crystals Not Reportable 07/13/20 08:31 Schistocytes Not Reportable 07/13/20 08:31 Malaria parasites Not Reportable 07/13/20 08:31 Josue Bodies Not Reportable 07/13/20 08:31 Hem Pathologist Commnt No 07/13/20 08:31 PT 11.8 Sec. (12.2-14.9) L 06/22/20 14:29 INR 0.88 (0.87-1.13) 06/22/20 14:29 APTT 23.5 Sec. (24.2-36.6) L 06/22/20 14:29 D-Dimer 1887.82 ng/mlDDU (0-234) H 05/20/20 08:16 Heparin Anti-Xa Level 0.37 U.I./ml (0.3-0.7) 07/02/20 16:08 ABG pH 7.437 (7.320-7.450) 08/11/20 18:43 POC ABG pCO2 51.0 mmHg (32.0-48.0) H 08/11/20 18:43 ABG pCO2 53.1 mm Hg 07/08/20 Unknown POC ABG pO2 84.9 mmHg (83-108) 08/11/20 18:43 ABG pO2 75.3 mm Hg (80.0-90.0) L 07/08/20 Unknown POC ABG HCO3 33.6 08/11/20 18:43 ABG HCO3 34.3 mmol/L (20.0-26.0) H 07/08/20 Unknown ABG O2 Saturation 96.5 % (95.0-99.0) 07/08/20 Unknown ABG O2 Content 13.5 (0.0-44) 07/08/20 Unknown POC ABG Base Excess 7.9 08/11/20 18:43 ABG Base Excess 8.7 mmol/L (-2.0-3.0) H 07/08/20 Unknown ABG Hemoglobin 13.8 (12.0-17.5) 08/11/20 18:43 ABG Oxyhemoglobin 94.6 (94-98) 08/11/20 18:43 ABG Carboxyhemoglobin 2.4 % (0.0-5.0) 07/08/20 Unknown ABG Methemoglobin 0.3 (0.0-1.5) 08/11/20 18:43 ABG Sodium 138.0 mmol/L (136.0-145.0) 08/11/20 18:43 ABG Potassium 3.4 mmol/L (3.40-4.50) 08/11/20 18:43 ABG Chloride 99.0 mmol/L (98-107) 08/11/20 18:43 ABG Glucose 149 mg/dL (65-95) H 08/11/20 18:43 Oxyhemoglobin 93.7 % (95.0-99.0) L 07/08/20 Unknown Carboxyhemoglobin 1.2 (0.5-1.5) 08/11/20 18:43 FiO2 50.0 08/11/20 18:43 Sodium 142 mmol/L (137-145) 08/03/20 05:18 Potassium 3.8 mmol/L (3.6-5.0) D 08/03/20 05:18 Chloride 100.0 mmol/L (98-107) 08/03/20 05:18 Carbon Dioxide 32 mmol/L (22-30) H D 08/03/20 05:18 Anion Gap 14 mmol/L 08/03/20 05:18 BUN 14 mg/dL (9-20) 08/03/20 05:18 Creatinine 0.4 mg/dL (0.8-1.3) L 08/03/20 05:18 Estimated GFR > 60 ml/min 08/03/20 05:18 BUN/Creatinine Ratio 35 % 08/03/20 05:18 Glucose 100 mg/dL (75-100) 08/03/20 05:18 POC Glucose 102 mg/dL (70-105) 08/12/20 11:27 Lactic Acid 0.80 mmol/L (0.7-2.0) 07/13/20 15:45 Calcium 9.3 mg/dL (8.4-10.2) 08/03/20 05:18 Phosphorus 3.10 mg/dL (2.5-4.5) 06/15/20 04:00 Magnesium 2.00 mg/dL (1.7-2.3) 07/24/20 05:05 Ferritin 1496.0 ng/mL (30.0-300.0) H 06/14/20 11:50 Total Bilirubin 0.30 mg/dL (0.1-1.2) 08/02/20 05:55 Direct Bilirubin 0.6 mg/dL (0-0.2) H 05/11/20 07:30 Indirect Bilirubin 0.9 mg/dL 05/11/20 07:30 AST 37 units/L (5-40) 08/02/20 05:55 ALT 118 units/L (7-56) H 08/02/20 05:55 Alkaline Phosphatase 88 units/L (35-129) 08/02/20 05:55 Lactate Dehydrogenase 705 units/L (91-180) H 05/20/20 08:16 Troponin T 0.015 ng/mL (0.00-0.029) 07/07/20 10:00 C-Reactive Protein 3.10 mg/dL (0.00-1.30) H 05/20/20 08:16 Total Protein 6.4 g/dL (6.3-8.2) 08/02/20 05:55 Albumin 3.3 g/dL (3.9-5) L 08/02/20 05:55 Albumin/Globulin Ratio 1.1 % 08/02/20 05:55 Triglycerides 452 mg/dL (2-149) H 06/30/20 07:00 Lipase 86 units/L (13-60) H 06/29/20 09:36 Procalcitonin 2.15 ng/mL (<0.15) 07/15/20 05:31 Arterial Blood Glucose 149 mg/dL (65-95) H 08/11/20 18:43 Arterial Blood Ionized Calcium 4.8 mg/dL (4.6-5.3) 08/11/20 18:43 Urine Color Fauzia (Yellow) 05/10/20 Unknown Urine Turbidity Clear (Clear) 05/10/20 Unknown Urine pH 5.0 (5.0-7.0) 05/10/20 Unknown Ur Specific [place] 1.019 (1.003-1.030) 05/10/20 Unknown Urine Protein 100 mg/dl mg/dL (Negative) 05/10/20 Unknown Urine Glucose (UA) Neg mg/dL (Negative) 05/10/20 Unknown Urine Ketones Neg mg/dL (Negative) 05/10/20 Unknown Urine Blood Lg (Negative) 05/10/20 Unknown Urine Nitrite Neg (Negative) 05/10/20 Unknown Urine Bilirubin Neg (Negative) 05/10/20 Unknown Urine Urobilinogen 2.0 mg/dL (<2.0) 05/10/20 Unknown Ur Leukocyte Esterase Neg (Negative) 05/10/20 Unknown Urine WBC (Auto) 11.0 /HPF (0.0-6.0) H 05/10/20 Unknown Urine RBC (Auto) 2.0 /HPF (0.0-6.0) 05/10/20 Unknown U Epithel Cells (Auto) 1.0 /HPF (0-13.0) 05/10/20 Unknown Urine Bacteria (Auto) 1+ /HPF (Negative) 05/10/20 Unknown Urine Mucus Few /HPF 05/10/20 Unknown Plasma/Serum Alcohol < 0.01 % (0-0.07) 05/09/20 14:20 Coronavirus (PCR) Negative (Negative) 08/06/20 09:36 Hepatitis A Ab Total Nonreactive (Nonreactive) 07/09/20 Unknown Hep B Core Total Ab Nonreactive (Nonreactive) 07/09/20 Unknown Hepatitis C RNA Quant See scanned result 07/09/20 Unknown SARS-CoV-2 IgG Ab Reactive (NonReactive) A 05/11/20 07:30 Blood Type B POSITIVE 06/21/20 14:18 Antibody Screen Negative 06/21/20 14:18 Crossmatch See Detail 06/21/20 14:18 - Diagnostic Impressions Diagnostic Impressions: Echocardiogram 05/20/20 13:02 Transthoracic Echocardiogram Indication: CHF BP: 97/73 Conclusions *The study quality is technically very difficult and limited. *The left ventricular chamber size, wall thickness and systolic function are within normal limits. There are no wall motion abnormalities observed. Ejection fraction is normal. *The estimated ejection fraction is 60-65%. *The pericardium appears normal. Findings Procedure Info: The study quality is technically difficult. Left Ventricle: The left ventricular chamber size, wall thickness and systolic function are within normal limits. There are no wall motion abnormalities observed. Ejection fraction is normal. The estimated ejection fraction is 60-65%. Abnormal left ventricular diastolic filling is observed, consistent with impaired relaxation. Left Atrium: The left atrium is normal in size with no visual thrombus identified. Right Ventricle: The right ventricle is not well visualized. Right Atrium: The right atrium is not well visualized. Aortic Valve: The aortic valve is trileaflet. The leaflets are thin with normal excursion. There is no aortic stenosis or regurgitation present. Mitral Valve: The mitral valve appears normal in structure and function. Tricuspid Valve: The tricuspid valve appears normal in structure and function. Unable to estimate the right ventricular systolic pressure. Pulmonic Valve: The pulmonic valve is not well visualized. There is no evidence of pulmonic regurgitation. There is no pulmonic stenosis. Pericardium: The pericardium appears normal. Pulmonary Artery: The main pulmonary artery is not well visualized. Venous: The inferior vena cava appears normal in size. Measurements Chambers 2D Name Value Normal Range IVSd (2D) 0.83 cm (0.6 - 1.1) LVPWd (2D) 0.83 cm (0.6 - 1.1) LVIDd (2D) 3.88 cm (3.7 - 5.6) LVIDs (2D) 2.46 cm (2 - 3.8) LV FS (2D) 36.52 % - EF Teichholz (2D) 66.97 % - Ao root diameter (2D) 3.47 cm (2 - 3.7) Volumes/Mass Name Value Normal Range LA ESV SP 4CH (A/L) 22.4 ml - LA ESV SP 2CH (A/L) 22.89 ml - LA ESV BP (A/L) 23.06 ml - LA ESV SP 4CH (MOD) 21.09 ml - LA ESV SP 2CH (MOD) 22.44 ml - Diastolic/Systolic Function Name Value Normal Range MV E-wave Vmax 0.48 m/sec - MV deceleration time 156.3 msec - MV A-wave Vmax 0.59 m/sec - MV E:A ratio 0.81 ratio - Aortic Valve Name Value Normal Range AV Vmax 0.97 m/sec - AV VTI 14.49 cm - AV peak gradient 3.73 mmHg - AV mean gradient 1.89 mmHg - LVOT diameter 2.09 cm - LVOT Vmax 0.72 m/sec - LVOT VTI 10.21 cm - LVOT peak gradient 2.05 mmHg - LVOT mean gradient 1.03 mmHg - SV LVOT 35.17 ml - INNA (continuity Vmax) 2.55 cm2 - INNA (continuity VTI) 2.43 cm2 - Tricuspid Valve Name Value Normal Range TV E-wave Vmax 0.37 m/sec - Pulmonic Valve/Qp:Qs Name Value Normal Range PV Vmax 0.72 m/sec - PV peak gradient 2.06 mmHg - RVOT Vmax 0.85 m/sec - RVOT VTI 9.89 cm - RVOT peak gradient 2.9 mmHg - PV acceleration time 72.31 msec - Cantor/IV: Voiding Method Urinal IV Catheter Type [Right Wrist] INT / Saline Lock IV Catheter Type [Right Upper Peripheral IV arm] IV Catheter Type [Right CVL Internal Jugular] IV Catheter Type [Right Peripheral IV Forearm] IV Catheter Type [Left Forearm INT / Saline Lock ] IV Catheter Type [Left Wrist] INT / Saline Lock IV Catheter Type [Right Hand] INT / Saline Lock IV Catheter Type [Left Hand] INT / Saline Lock IV Catheter Type [Left Peripheral IV Antecubital] Active Medications - Current Medications Current Medications: Generic Name Dose Route Start Last Admin Trade Name Freq PRN Reason Stop Dose Admin Acetaminophen 650 mg 08/07/20 10:06 Acetaminophen 325 Mg Tab PO Q4H PRN Pain, Mild (1-3) Alprazolam 0.25 mg 05/20/20 17:53 07/26/20 09:37 Alprazolam 0.25 Mg Tab PO 0.25 mg Q8H PRN Administration Anxiety Lipase/Protease/Amylase 1 each 05/22/20 13:01 Lipase 10,500/Protease 25,000/Amylase 43,750 (Units) Dr Newell FEEDTUBE PRN PRN For Clogged Feeding Tube Bisacodyl 10 mg 07/14/20 11:00 Bisacodyl 10 Mg Rect Supp DE BID PRN Laxative Effect Enoxaparin Sodium 40 mg 07/29/20 22:00 08/11/20 22:17 Enoxaparin 40 Mg/0.4 Ml Inj SUB-Q 40 mg QDAY@2200 DESIRE Administration Protocol Folic Acid 1 mg 05/09/20 15:36 08/12/20 09:51 Folic Acid 1 Mg Tab PO 1 mg QDAY DESIRE Administration Guaifenesin 600 mg 07/19/20 23:00 08/12/20 09:50 Guaifenesin Er 600 Mg Tab PO 600 mg BID DESIRE Administration Hydrophilic Ointment 1 applic 05/21/20 20:33 Lip Therapy Vaseline TP Q2HR PRN Dry Lips Insulin Human Lispro 0 unit 07/31/20 07:30 08/12/20 16:30 Insulin Lispro 100 Unit/Ml SUB-Q Not Given ACHS [facility] Protocol Lansoprazole 30 mg 06/28/20 10:00 08/12/20 09:51 Lansoprazole 30 Mg Solutab FEEDTUBE 30 mg QDAY DESIRE Administration Metoprolol Tartrate 5 mg 07/02/20 17:17 07/08/20 14:38 Metoprolol Tartrate 5 Mg/5 Ml Inj IV 5 mg Q6HR PRN Administration Tachyarrhythmias Metoprolol Tartrate 25 mg 08/12/20 12:00 08/12/20 13:38 Metoprolol Tartrate 25 Mg Tab PO 25 mg BID DESIRE Administration Multi-Ingred Cream/Lotion/Oil/Oint 1 applic 05/21/20 20:33 Mineral Oil/Petrolatum, White Ophth Oint 3.5 Gm OU Q4HR PRN Dry Eye(s) Olanzapine 5 mg 07/17/20 22:00 08/11/20 22:15 Olanzapine 5 Mg Tab PO 5 mg QHS DESIRE Administration Phenobarbital 32.4 mg 07/04/20 22:00 08/12/20 09:51 Phenobarbital 32.4 Mg Tab PO 32.4 mg BID DESIRE Administration Pseudoephedrine/Acetam/Chlorphenir 10 ml 08/07/20 11:12 Guaifenesin/Codeine 100-10mg Oral Liqd 5 Ml PO Q4H PRN Cough Quetiapine Fumarate 200 mg 07/16/20 10:00 08/12/20 09:51 Quetiapine 200 Mg Tab PO 200 mg QAM DESIRE Administration Senna 17.2 mg 07/14/20 11:00 08/03/20 16:46 Sennosides 8.6 Mg Tab PO 8.6 mg BID PRN Administration Laxative Effect Nutrition/Malnutrition Assess - Dietary Evaluation Nutrition/Malnutrition Findings: Nutrition Notes Start: 05/17/20 14:10 Freq: Status: Active Protocol: Document 08/11/20 12:56 EN (Rec: 08/11/20 13:00 EN [id number]) Co-Sign 08/11/20 12:56 MK Nutrition Notes Initial or Follow up Reassessment Current Diagnosis Acute Kidney Injury,Decubitus( Pressure Ulcer),Sepsis, Respiratory Failure Other Pertinent Diagnosis Bilat pneu, COVID-19 (-), EtOH dependence Current Diet Regular diet Labs/Tests Reviewed Pertinent Medications Reviewed Height 6 ft Weight 96 kg [place] Body Weight (kg) 80.90 BMI 28.7 Weight Status Overweight Subjective/Other Information F/u for intakes, Sammy and ONS tolerance. Pt reports consuming 100% of meals with a good appetite. Pt denies N/V/ D. Pt states that he has been drinking 100% of ONS and receiving Sammy BID via diet [place]. Percent of energy/protein needs met: 100%/100% Burn Absent Trauma Absent GI Symptoms None Current % PO Good (75-100%) Minimum of two criteria Yes Interpretation of Weight Loss (severe) >5% in 1 month Muscle Mass Mild Depletion (non-severe) #3 Nutrition Diagnosis Malnutrition Diagnosis Progress(for reassessment Continues documentation) #2 Nutrition Diagnosis Increased nutrient needs ( specify in comment below) Diagnosis Progress(for reassessment Continues documentation) Is patient on ventilator? No Is Patient Ambulatory and/or Out of Bed No REE-([facility]-confined to bed) 2227.344 Kcal/Kg value to use for calculation 21 Approximate Energy Requirements Using 2016 kcal/Kg Calculation Used for Recommendations Kcal/kg Additional Notes Protein: 106-134 g (1.2-1.5 g/ kg AdBW 89 kg) Fluid: 1ml/kcal Nutrition Intervention Change Diet Order: Continue diet Add Supplement/Snack (indicate name/kcal Ensure High Protein daily /protein ) Sammy BID Provides kCal: 350 Provides Protein (gm) 21 Goal #1 Meet at least 75% protein and energy needs via PO Goal #2 ONS tolerance Goal #3 Intake of Sammy BID Anticipated Discharge Needs: Regular, healthful diet and Sammy BID and increased protein intake until pressure ulcer is healed. Follow-Up By: 08/18/20 Additional Comments F/u stable intakes, ONS and Sammy tolerance/intake
[2020-08-12 19:09] LABS: Blood Urea Nitrogen 15 mg/dL (9-20); Calcium 9.2 mg/dL (8.4-10.2); Hemolysis Index 17
[2020-08-12 19:10] LABS: BUN/Creatinine Ratio 30
--- NOTE | 2020-08-12 19:27 | Progress Note ---
Hospitalist Physical - Constitutional Vitals: Temp Pulse Resp BP Pulse Ox 99.8 F H 110 H 20 106/66 97 08/12/20 16:00 08/12/20 16:00 08/12/20 16:00 08/12/20 16:00 08/12/20 16:00 General appearance: Present: mild distress, well-nourished HEART Score - HEART Score Troponin: Troponin T 0.015 ng/mL (0.00-0.029) 07/07/20 10:00 Results - Labs CBC & Chem 7: 08/02/20 05:55 08/12/20 18:34 Labs: Laboratory Last Values WBC 12.4 K/mm3 (4.5-11.0) H 08/02/20 05:55 RBC 3.85 M/mm3 (3.65-5.03) 08/02/20 05:55 Hgb 12.3 gm/dl (11.8-15.2) 08/02/20 05:55 Hct 37.9 % (35.5-45.6) 08/02/20 05:55 MCV 99 fl (84-94) H 08/02/20 05:55 MCH 32 pg (28-32) 08/02/20 05:55 MCHC 33 % (32-34) 08/02/20 05:55 RDW 16.9 % (13.2-15.2) H 08/02/20 05:55 Plt Count 267 K/mm3 (140-440) 08/02/20 05:55 Lymph % (Auto) 18.3 % (13.4-35.0) 08/02/20 05:55 [place] % (Auto) 9.7 % (0.0-7.3) H 08/02/20 05:55 Eos % (Auto) 3.3 % (0.0-4.3) 08/02/20 05:55 Baso % (Auto) 0.4 % (0.0-1.8) 08/02/20 05:55 Lymph # (Auto) 2.3 K/mm3 (1.2-5.4) 08/02/20 05:55 [place] # (Auto) 1.2 K/mm3 (0.0-0.8) H 08/02/20 05:55 Eos # (Auto) 0.4 K/mm3 (0.0-0.4) 08/02/20 05:55 Baso # (Auto) 0.1 K/mm3 (0.0-0.1) 08/02/20 05:55 Add Manual Diff Complete 07/13/20 08:31 Total Counted 100 07/13/20 08:31 Seg Neutrophils % 68.3 % (40.0-70.0) 08/02/20 05:55 Seg Neuts % (Manual) 96.0 % (40.0-70.0) H 07/13/20 08:31 Band Neutrophils % 0 % 07/13/20 08:31 Lymphocytes % (Manual) 2.0 % (13.4-35.0) L 07/13/20 08:31 Reactive Lymphs % (Man) 0 % 07/13/20 08:31 Monocytes % (Manual) 2.0 % (0.0-7.3) 07/13/20 08:31 Eosinophils % (Manual) 0 % (0.0-4.3) 07/13/20 08:31 Basophils % (Manual) 0 % (0.0-1.8) 07/13/20 08:31 Metamyelocytes % 0 % 07/13/20 08:31 Myelocytes % 0 % 07/13/20 08:31 Promyelocytes % 0 % 07/13/20 08:31 Blast Cells % 0 % 07/13/20 08:31 Nucleated RBC % Not Reportable 07/13/20 08:31 Seg Neutrophils # 8.5 K/mm3 (1.8-7.7) H 08/02/20 05:55 Seg Neutrophils # Man 20.4 K/mm3 (1.8-7.7) H 07/13/20 08:31 Band Neutrophils # 0.0 K/mm3 07/13/20 08:31 Lymphocytes # (Manual) 0.4 K/mm3 (1.2-5.4) L 07/13/20 08:31 Abs React Lymphs (Man) 0.0 K/mm3 07/13/20 08:31 Monocytes # (Manual) 0.4 K/mm3 (0.0-0.8) 07/13/20 08:31 Eosinophils # (Manual) 0.0 K/mm3 (0.0-0.4) 07/13/20 08:31 Basophils # (Manual) 0.0 K/mm3 (0.0-0.1) 07/13/20 08:31 Metamyelocytes # 0.0 K/mm3 07/13/20 08:31 Myelocytes # 0.0 K/mm3 07/13/20 08:31 Promyelocytes # 0.0 K/mm3 07/13/20 08:31 Blast Cells # 0.0 K/mm3 07/13/20 08:31 WBC Morphology Not Reportable 07/13/20 08:31 Hypersegmented Neuts Not Reportable 07/13/20 08:31 Hyposegmented Neuts Not Reportable 07/13/20 08:31 Hypogranular Neuts Not Reportable 07/13/20 08:31 Smudge Cells Not Reportable 07/13/20 08:31 Toxic Granulation Not Reportable 07/13/20 08:31 Toxic Vacuolation Not Reportable 07/13/20 08:31 Dohle Bodies Not Reportable 07/13/20 08:31 Pelger-Huet Anomaly Not Reportable 07/13/20 08:31 Jason Rods Not Reportable 07/13/20 08:31 Platelet Estimate Consistent w auto 07/13/20 08:31 Clumped Platelets Not Reportable 07/13/20 08:31 Plt Clumps, EDTA Not Reportable 07/13/20 08:31 Large Platelets Not Reportable 07/13/20 08:31 Giant Platelets Not Reportable 07/13/20 08:31 Platelet Satelliting Not Reportable 07/13/20 08:31 Plt Morphology Comment Not Reportable 07/13/20 08:31 RBC Morphology Not Reportable 07/13/20 08:31 Dimorphic RBCs Not Reportable 07/13/20 08:31 Polychromasia Not Reportable 07/13/20 08:31 Hypochromasia Not Reportable 07/13/20 08:31 Poikilocytosis Not Reportable 07/13/20 08:31 Anisocytosis Not Reportable 07/13/20 08:31 Microcytosis Not Reportable 07/13/20 08:31 Macrocytosis Not Reportable 07/13/20 08:31 Spherocytes Not Reportable 07/13/20 08:31 Pappenheimer Bodies Not Reportable 07/13/20 08:31 Sickle Cells Not Reportable 07/13/20 08:31 Target Cells Not Reportable 07/13/20 08:31 Tear Drop Cells Not Reportable 07/13/20 08:31 Ovalocytes Not Reportable 07/13/20 08:31 Stomatocytes Few 07/13/20 08:31 Helmet Cells Not Reportable 07/13/20 08:31 Sinclair-Etta Bodies Not Reportable 07/13/20 08:31 [place] Rings Not Reportable 07/13/20 08:31 [place] Cells Not Reportable 07/13/20 08:31 Bite Cells Not Reportable 07/13/20 08:31 Crenated Cell Not Reportable 07/13/20 08:31 Elliptocytes Not Reportable 07/13/20 08:31 Acanthocytes (Spur) Not Reportable 07/13/20 08:31 Rouleaux Not Reportable 07/13/20 08:31 Hemoglobin C Crystals Not Reportable 07/13/20 08:31 Schistocytes Not Reportable 07/13/20 08:31 Malaria parasites Not Reportable 07/13/20 08:31 Josue Bodies Not Reportable 07/13/20 08:31 Hem Pathologist Commnt No 07/13/20 08:31 PT 11.8 Sec. (12.2-14.9) L 06/22/20 14:29 INR 0.88 (0.87-1.13) 06/22/20 14:29 APTT 23.5 Sec. (24.2-36.6) L 06/22/20 14:29 D-Dimer 1887.82 ng/mlDDU (0-234) H 05/20/20 08:16 Heparin Anti-Xa Level 0.37 U.I./ml (0.3-0.7) 07/02/20 16:08 ABG pH 7.437 (7.320-7.450) 08/11/20 18:43 POC ABG pCO2 51.0 mmHg (32.0-48.0) H 08/11/20 18:43 ABG pCO2 53.1 mm Hg 07/08/20 Unknown POC ABG pO2 84.9 mmHg (83-108) 08/11/20 18:43 ABG pO2 75.3 mm Hg (80.0-90.0) L 07/08/20 Unknown POC ABG HCO3 33.6 08/11/20 18:43 ABG HCO3 34.3 mmol/L (20.0-26.0) H 07/08/20 Unknown ABG O2 Saturation 96.5 % (95.0-99.0) 07/08/20 Unknown ABG O2 Content 13.5 (0.0-44) 07/08/20 Unknown POC ABG Base Excess 7.9 08/11/20 18:43 ABG Base Excess 8.7 mmol/L (-2.0-3.0) H 07/08/20 Unknown ABG Hemoglobin 13.8 (12.0-17.5) 08/11/20 18:43 ABG Oxyhemoglobin 94.6 (94-98) 08/11/20 18:43 ABG Carboxyhemoglobin 2.4 % (0.0-5.0) 07/08/20 Unknown ABG Methemoglobin 0.3 (0.0-1.5) 08/11/20 18:43 ABG Sodium 138.0 mmol/L (136.0-145.0) 08/11/20 18:43 ABG Potassium 3.4 mmol/L (3.40-4.50) 08/11/20 18:43 ABG Chloride 99.0 mmol/L (98-107) 08/11/20 18:43 ABG Glucose 149 mg/dL (65-95) H 08/11/20 18:43 Oxyhemoglobin 93.7 % (95.0-99.0) L 07/08/20 Unknown Carboxyhemoglobin 1.2 (0.5-1.5) 08/11/20 18:43 FiO2 50.0 08/11/20 18:43 Sodium 139 mmol/L (137-145) 08/12/20 18:34 Potassium 3.7 mmol/L (3.6-5.0) 08/12/20 18:34 Chloride 97.2 mmol/L (98-107) L 08/12/20 18:34 Carbon Dioxide 28 mmol/L (22-30) 08/12/20 18:34 Anion Gap 18 mmol/L 08/12/20 18:34 BUN 15 mg/dL (9-20) 08/12/20 18:34 Creatinine 0.5 mg/dL (0.8-1.3) L 08/12/20 18:34 Estimated GFR > 60 ml/min 08/12/20 18:34 BUN/Creatinine Ratio 30 % 08/12/20 18:34 Glucose 132 mg/dL (75-100) H 08/12/20 18:34 POC Glucose 102 mg/dL (70-105) 08/12/20 16:22 Lactic Acid 0.80 mmol/L (0.7-2.0) 07/13/20 15:45 Calcium 9.2 mg/dL (8.4-10.2) 08/12/20 18:34 Phosphorus 3.10 mg/dL (2.5-4.5) 06/15/20 04:00 Magnesium 2.00 mg/dL (1.7-2.3) 07/24/20 05:05 Ferritin 1496.0 ng/mL (30.0-300.0) H 06/14/20 11:50 Total Bilirubin 0.30 mg/dL (0.1-1.2) 08/02/20 05:55 Direct Bilirubin 0.6 mg/dL (0-0.2) H 05/11/20 07:30 Indirect Bilirubin 0.9 mg/dL 05/11/20 07:30 AST 37 units/L (5-40) 08/02/20 05:55 ALT 118 units/L (7-56) H 08/02/20 05:55 Alkaline Phosphatase 88 units/L (35-129) 08/02/20 05:55 Lactate Dehydrogenase 705 units/L (91-180) H 05/20/20 08:16 Troponin T 0.015 ng/mL (0.00-0.029) 07/07/20 10:00 C-Reactive Protein 3.10 mg/dL (0.00-1.30) H 05/20/20 08:16 Total Protein 6.4 g/dL (6.3-8.2) 08/02/20 05:55 Albumin 3.3 g/dL (3.9-5) L 08/02/20 05:55 Albumin/Globulin Ratio 1.1 % 08/02/20 05:55 Triglycerides 452 mg/dL (2-149) H 06/30/20 07:00 Lipase 86 units/L (13-60) H 06/29/20 09:36 Procalcitonin 2.15 ng/mL (<0.15) 07/15/20 05:31 Arterial Blood Glucose 149 mg/dL (65-95) H 08/11/20 18:43 Arterial Blood Ionized Calcium 4.8 mg/dL (4.6-5.3) 08/11/20 18:43 Urine Color Fauzia (Yellow) 05/10/20 Unknown Urine Turbidity Clear (Clear) 05/10/20 Unknown Urine pH 5.0 (5.0-7.0) 05/10/20 Unknown Ur Specific [place] 1.019 (1.003-1.030) 05/10/20 Unknown Urine Protein 100 mg/dl mg/dL (Negative) 05/10/20 Unknown Urine Glucose (UA) Neg mg/dL (Negative) 05/10/20 Unknown Urine Ketones Neg mg/dL (Negative) 05/10/20 Unknown Urine Blood Lg (Negative) 05/10/20 Unknown Urine Nitrite Neg (Negative) 05/10/20 Unknown Urine Bilirubin Neg (Negative) 05/10/20 Unknown Urine Urobilinogen 2.0 mg/dL (<2.0) 05/10/20 Unknown Ur Leukocyte Esterase Neg (Negative) 05/10/20 Unknown Urine WBC (Auto) 11.0 /HPF (0.0-6.0) H 05/10/20 Unknown Urine RBC (Auto) 2.0 /HPF (0.0-6.0) 05/10/20 Unknown U Epithel Cells (Auto) 1.0 /HPF (0-13.0) 05/10/20 Unknown Urine Bacteria (Auto) 1+ /HPF (Negative) 05/10/20 Unknown Urine Mucus Few /HPF 05/10/20 Unknown Plasma/Serum Alcohol < 0.01 % (0-0.07) 05/09/20 14:20 Coronavirus (PCR) Negative (Negative) 08/06/20 09:36 Hepatitis A Ab Total Nonreactive (Nonreactive) 07/09/20 Unknown Hep B Core Total Ab Nonreactive (Nonreactive) 07/09/20 Unknown Hepatitis C RNA Quant See scanned result 07/09/20 Unknown SARS-CoV-2 IgG Ab Reactive (NonReactive) A 05/11/20 07:30 Blood Type B POSITIVE 06/21/20 14:18 Antibody Screen Negative 06/21/20 14:18 Crossmatch See Detail 06/21/20 14:18 - Diagnostic Impressions Diagnostic Impressions: Echocardiogram 05/20/20 13:02 Transthoracic Echocardiogram Indication: CHF BP: 97/73 Conclusions *The study quality is technically very difficult and limited. *The left ventricular chamber size, wall thickness and systolic function are within normal limits. There are no wall motion abnormalities observed. Ejection fraction is normal. *The estimated ejection fraction is 60-65%. *The pericardium appears normal. Findings Procedure Info: The study quality is technically difficult. Left Ventricle: The left ventricular chamber size, wall thickness and systolic function are within normal limits. There are no wall motion abnormalities observed. Ejection fraction is normal. The estimated ejection fraction is 60-65%. Abnormal left ventricular diastolic filling is observed, consistent with impaired relaxation. Left Atrium: The left atrium is normal in size with no visual thrombus identified. Right Ventricle: The right ventricle is not well visualized. Right Atrium: The right atrium is not well visualized. Aortic Valve: The aortic valve is trileaflet. The leaflets are thin with normal excursion. There is no aortic stenosis or regurgitation present. Mitral Valve: The mitral valve appears normal in structure and function. Tricuspid Valve: The tricuspid valve appears normal in structure and function. Unable to estimate the right ventricular systolic pressure. Pulmonic Valve: The pulmonic valve is not well visualized. There is no evidence of pulmonic regurgitation. There is no pulmonic stenosis. Pericardium: The pericardium appears normal. Pulmonary Artery: The main pulmonary artery is not well visualized. Venous: The inferior vena cava appears normal in size. Measurements Chambers 2D Name Value Normal Range IVSd (2D) 0.83 cm (0.6 - 1.1) LVPWd (2D) 0.83 cm (0.6 - 1.1) LVIDd (2D) 3.88 cm (3.7 - 5.6) LVIDs (2D) 2.46 cm (2 - 3.8) LV FS (2D) 36.52 % - EF Teichholz (2D) 66.97 % - Ao root diameter (2D) 3.47 cm (2 - 3.7) Volumes/Mass Name Value Normal Range LA ESV SP 4CH (A/L) 22.4 ml - LA ESV SP 2CH (A/L) 22.89 ml - LA ESV BP (A/L) 23.06 ml - LA ESV SP 4CH (MOD) 21.09 ml - LA ESV SP 2CH (MOD) 22.44 ml - Diastolic/Systolic Function Name Value Normal Range MV E-wave Vmax 0.48 m/sec - MV deceleration time 156.3 msec - MV A-wave Vmax 0.59 m/sec - MV E:A ratio 0.81 ratio - Aortic Valve Name Value Normal Range AV Vmax 0.97 m/sec - AV VTI 14.49 cm - AV peak gradient 3.73 mmHg - AV mean gradient 1.89 mmHg - LVOT diameter 2.09 cm - LVOT Vmax 0.72 m/sec - LVOT VTI 10.21 cm - LVOT peak gradient 2.05 mmHg - LVOT mean gradient 1.03 mmHg - SV LVOT 35.17 ml - INNA (continuity Vmax) 2.55 cm2 - INNA (continuity VTI) 2.43 cm2 - Tricuspid Valve Name Value Normal Range TV E-wave Vmax 0.37 m/sec - Pulmonic Valve/Qp:Qs Name Value Normal Range PV Vmax 0.72 m/sec - PV peak gradient 2.06 mmHg - RVOT Vmax 0.85 m/sec - RVOT VTI 9.89 cm - RVOT peak gradient 2.9 mmHg - PV acceleration time 72.31 msec - Cantor/IV: Voiding Method Urinal IV Catheter Type [Right Wrist] INT / Saline Lock IV Catheter Type [Right Upper Peripheral IV arm] IV Catheter Type [Right CVL Internal Jugular] IV Catheter Type [Right Peripheral IV Forearm] IV Catheter Type [Left Forearm INT / Saline Lock ] IV Catheter Type [Left Wrist] INT / Saline Lock IV Catheter Type [Right Hand] INT / Saline Lock IV Catheter Type [Left Hand] INT / Saline Lock IV Catheter Type [Left Peripheral IV Antecubital] Active Medications - Current Medications Current Medications: Generic Name Dose Route Start Last Admin Trade Name Freq PRN Reason Stop Dose Admin Acetaminophen 650 mg 08/07/20 10:06 Acetaminophen 325 Mg Tab PO Q4H PRN Pain, Mild (1-3) Alprazolam 0.25 mg 05/20/20 17:53 07/26/20 09:37 Alprazolam 0.25 Mg Tab PO 0.25 mg Q8H PRN Administration Anxiety Lipase/Protease/Amylase 1 each 05/22/20 13:01 Lipase 10,500/Protease 25,000/Amylase 43,750 (Units) Dr Newell FEEDTUBE PRN PRN For Clogged Feeding Tube Bisacodyl 10 mg 07/14/20 11:00 Bisacodyl 10 Mg Rect Supp GA BID PRN Laxative Effect Enoxaparin Sodium 40 mg 07/29/20 22:00 08/11/20 22:17 Enoxaparin 40 Mg/0.4 Ml Inj SUB-Q 40 mg QDAY@2200 DESIRE Administration Protocol Folic Acid 1 mg 05/09/20 15:36 08/12/20 09:51 Folic Acid 1 Mg Tab PO 1 mg QDAY DESIRE Administration Guaifenesin 600 mg 07/19/20 23:00 08/12/20 09:50 Guaifenesin Er 600 Mg Tab PO 600 mg BID DESIRE Administration Hydrophilic Ointment 1 applic 05/21/20 20:33 Lip Therapy Vaseline TP Q2HR PRN Dry Lips Insulin Human Lispro 0 unit 07/31/20 07:30 08/12/20 16:30 Insulin Lispro 100 Unit/Ml SUB-Q Not Given ACHS [facility] Protocol Lansoprazole 30 mg 06/28/20 10:00 08/12/20 09:51 Lansoprazole 30 Mg Solutab FEEDTUBE 30 mg QDAY DESIRE Administration Metoprolol Tartrate 5 mg 07/02/20 17:17 07/08/20 14:38 Metoprolol Tartrate 5 Mg/5 Ml Inj IV 5 mg Q6HR PRN Administration Tachyarrhythmias Metoprolol Tartrate 25 mg 08/12/20 12:00 08/12/20 13:38 Metoprolol Tartrate 25 Mg Tab PO 25 mg BID DESIRE Administration Multi-Ingred Cream/Lotion/Oil/Oint 1 applic 05/21/20 20:33 Mineral Oil/Petrolatum, White Ophth Oint 3.5 Gm OU Q4HR PRN Dry Eye(s) Olanzapine 5 mg 07/17/20 22:00 08/11/20 22:15 Olanzapine 5 Mg Tab PO 5 mg QHS DESIRE Administration Phenobarbital 32.4 mg 07/04/20 22:00 08/12/20 09:51 Phenobarbital 32.4 Mg Tab PO 32.4 mg BID DESIRE Administration Pseudoephedrine/Acetam/Chlorphenir 10 ml 01/30/21 11:12 Guaifenesin/Codeine 100-10mg Oral Liqd 5 Ml PO Q4H PRN Cough Quetiapine Fumarate 200 mg 07/16/20 10:00 08/12/20 09:51 Quetiapine 200 Mg Tab PO 200 mg QAM DESIRE Administration Senna 17.2 mg 07/14/20 11:00 08/03/20 16:46 Sennosides 8.6 Mg Tab PO 8.6 mg BID PRN Administration Laxative Effect Nutrition/Malnutrition Assess - Dietary Evaluation Nutrition/Malnutrition Findings: Nutrition Notes Start: 05/17/20 14 :10 Freq: Status: Active Protocol: Document 08/11/20 12:56 EN (Rec: 08/11/20 13:00 EN [id number]) Co-Sign 08/11/20 12:56 MK Nutrition Notes Initial or Follow up Reassessment Current Diagnosis Acute Kidney Injury,Decubitus( Pressure Ulcer),Sepsis, Respiratory Failure Other Pertinent Diagnosis Bilat pneu, COVID-19 (-), EtOH dependence Current Diet Regular diet Labs/Tests Reviewed Pertinent Medications Reviewed Height 6 ft Weight 96 kg [place] Body Weight (kg) 80.90 BMI 28.7 Weight Status Overweight Subjective/Other Information F/u for intakes, Sammy and ONS tolerance. Pt reports consuming 100% of meals with a good appetite. Pt denies N/V/ D. Pt states that he has been drinking 100% of ONS and receiving Sammy BID via diet [place]. Percent of energy/protein needs met: 100%/100% Burn Absent Trauma Absent GI Symptoms None Current % PO Good (75-100%) Minimum of two criteria Yes Interpretation of Weight Loss (severe) >5% in 1 month Muscle Mass Mild Depletion (non-severe) #3 Nutrition Diagnosis Malnutrition Diagnosis Progress(for reassessment Continues documentation) #2 Nutrition Diagnosis Increased nutrient needs ( specify in comment below) Diagnosis Progress(for reassessment Continues documentation) Is patient on ventilator? No Is Patient Ambulatory and/or Out of Bed No REE-([place]-confined to bed) 2529.344 Kcal/Kg value to use for calculation 21 Approximate Energy Requirements Using 2016 kcal/Kg Calculation Used for Recommendations Kcal/kg Additional Notes Protein: 106-134 g (1.2-1.5 g/ kg AdBW 89 kg) Fluid: 1ml/kcal Nutrition Intervention Change Diet Order: Continue diet Add Supplement/Snack (indicate name/kcal Ensure High Protein daily /protein ) Sammy BID Provides kCal: 350 Provides Protein (gm) 21 Goal #1 Meet at least 75% protein and energy needs via PO Goal #2 ONS tolerance Goal #3 Intake of Sammy BID Anticipated Discharge Needs: Regular, healthful diet and Sammy BID and increased protein intake until pressure ulcer is healed. Follow-Up By: 08/18/20 Additional Comments F/u stable intakes, ONS and Sammy tolerance/intake
[2020-08-12] MEDS: ENOXAPARIN 40 MG/0.4 ML INJ SUB-Q SCH (21:20)
[2020-08-13] MEDS: INSULIN LISPRO 100 UNIT/ML SUB-Q SCH ×4 (08:33→21:54)
[2020-08-13] MEDS: METOPROLOL TARTRATE 25 MG TAB PO SCH ×2 (10:19→21:53)
[2020-08-13] MEDS: FOLIC ACID 1 MG TAB PO SCH (10:19)
[2020-08-13] MEDS: guaiFENesin ER 600 MG TAB PO SCH ×2 (10:19→21:53)
[2020-08-13] MEDS: PHENobarbital 32.4 MG TAB PO SCH ×2 (10:19→21:54)
[2020-08-13] MEDS: LANSOPRAZOLE 30 MG SOLUTAB FEEDTUBE SCH (10:19)
[2020-08-13] MEDS: QUEtiapine 200 MG TAB PO SCH (10:19)
[2020-08-13] MEDS: METOPROLOL TARTRATE 5 MG/5 ML INJ IV PRN (14:44)
[2020-08-13] MEDS: guaiFENesin/CODEINE 100-10MG ORAL LIQD 5 ML PO PRN (14:44)
[2020-08-13] MEDS: ACETAMINOPHEN 325 MG TAB PO PRN (16:05)
[2020-08-13] MEDS: ENOXAPARIN 40 MG/0.4 ML INJ SUB-Q SCH (21:53)
--- NOTE | 2020-08-14 01:23 | Progress Note ---
Assessment and Plan Assessment and Plan Positive COVID-19 test; 05/10/2020 Negative COVID-19 test; 06/30/2020 --Acute hypoxemic resp failure; oxygen dependent on 4 L NC, requiring intermittent BiPAP Due to COVID-19 pneumonia --Persistent sinus tachycardia: Multifactorial We will closely monitor --Severe COVID-19 bilateral pneumonia Coronavirus protocol: Completed steroids and remdesivir therapy, isolation precautions, Received management per COVID-19 protocol Repeat ivory PCR test negative on 06/30/2020 Isolation discontinued --Pneumothorax status post right chest tube Chest tube removed 07/23/2020 Post removal chest x-ray no pneumothorax Patient is requiring 3 to 4 L nasal cannula And intermittent BiPAP --Severe hypokalemia; resolved --Elevated D-dimers; Patient had CTA chest ; negative for PE, patient already had lower extremity venous Doppler which was negative for DVT --Pseudomonas bacteremia; ID following, completed cefepime Monitor off antibiotics --Severe sepsis/septic shock, monitor off pressors Completed cefepime, monitor off antibiotics -- Acute kidney injury (SEN) , likely vasomotor nephropathy Resolved, avoid nephrotoxins --Acute on chronic anemia Guaiac test positive, GI evaluated the patient Patient H&H is normal range now Hb 11.8 -- Elevated liver function tests; resolved LFTs within normal limits --Colonic distention GI evaluated colonic distention resolved recommend stool softeners -- DVT prophylaxis On therapeutic Lovenox Chest tube removed Patient on 10 L nasal cannula oxygen, wean as tolerated Elevated D-dimers, on empiric therapeutic Lovenox CTA chest negative for PE,LE DVT negative, therapeutic Lovenox DC'd Changed to prophylactic Lovenox Discharge planning per case management CM reports that IRU is evaluating the patient for placement Patient is medically stable for discharge Disposition; IRU placement versus home with home health Subjective Date of service: 08/13/20 Principal diagnosis: Ac hypoxemic resp failure; COVID-19; Severe Sepsis; Shaggy PNA; Alcohol Abuse Interval history: Brief history and hospital course; Patient with pneumothorax status post chest tube placement and removal continues to require 4 to 5 L of nasal cannula oxygen, initially IRU placement was considered, insurance did not approve, daughter is trying for reconsideration for IRU placement, patient pending placement versus home with home health when stable 07/23/2020; patient remains on high flow oxygen, wean oxygen as tolerated, severe hypokalemia Replenish per protocol monitor levels 07/24/2020; patient had chest tube removal yesterday 07/23/2019 and, post removal chest x-ray no pneumothorax no acute abnormalities Patient feels slightly better continues to require high flow oxygen Wean as tolerated, physical and occupational therapy, DC planning 07/26/2020; patient on 3 L nasal cannula oxygen, patient feels better 07/27/2020; patient was saturating well on 3 L of nasal cannula oxygen, however today patient is on high flow oxygen 15 L Complains of some congestion, wean oxygen levels to 3-5 as tolerated Discharge planning LTAC has refused patient,Possible home with home health versus placement when medically stable 07/28/2020; continue to wean oxygen, patient is on 10 L, awaiting placement 07/29/2020; continues to be on 10 L nasal cannula oxygen, wean as tolerated Patient is on empiric therapeutic dose Lovenox, due to elevated D-dimers Patient is stable for CTA chest today, follow the report and adjust Lovenox as needed DC planning per case management, with pending placement 07/30/2020; patient feels slightly better, oxygen reduced to 8 L of nasal cannula Will check PT OT, pending placement 07/31/2020 :Patient on 8 L of nasal cannula oxygen 08/03/2020; patient's oxygen requirement has come down to 3-4 and half liters nasal cannula Will try to wean oxygen as tolerated, respiratory therapist assisting to reach the goal Possible discharge home in 1 to 2 days if stable Plan of care reviewed with the patient and his nurse 08/04/2020; patient is requiring 3 to 4 L nasal cannula oxygen, case management to set up home oxygen Patient is hemodynamically and clinically stable for discharge, pending [facility] IRU [facility] And of care reviewed with the patient and his nurse as well as the case management 08/05/2020 ; COVID-19 test requested , patient is hemodynamically and clinically stable for discharge Patient is requiring 4 L of nasal cannula oxygen . medically stable for discharge 08/06/2020; patient is hemodynamically and clinically stable for discharge and transfer to IRU unit today Pre-discharge COVID-19 test is negative, pending insurance authorization 08/07/20; patient is accepted by inpatient rehab unit for admission, pending insurance authorization Stable for discharge 08/08/2020; patient is stable for discharge to inpatient rehab unit, pending insurance approval 08/09/2020; case operator reports that insurance has not approved inpatient rehab placement for this patient Will evaluate for home oxygen, set up home oxygen if eligible, and plan discharge home with home health when patient is hemodynamically stable 08/10/2020; patient continues to have persistent tachycardia, and persistent hypoxia requiring 4 L of nasal cannula oxygen As well as intermittent BiPAP, continue current management 08/11/2020; patient continues to require oxygen and intermittent BiPAP, awaiting IRU placement Versus home with home health and home oxygen, DC planning per case management 08/12/2020; awaiting IRU placement versus home with home health on home oxygen 08/13/2020 Awaiting placement History Interval history: I have seen and examined the patient at the bedside this morning Patient is still requiring 4 L of nasal cannula oxygen Persistent tachycardia Patient feels tired Vital signs noted Objective - Constitutional Vitals: Vital Signs - 12hr 08/13/20 08/13/20 08/13/20 15:45 19:40 20:13 Temperature 100.7 F H 97.3 F L Pulse Rate 114 H 109 H Respiratory 22 22 Rate Blood Pressure 110/68 104/73 O2 Sat by Pulse 96 92 93 Oximetry 08/13/20 08/13/20 21:53 23:27 Temperature 99.1 F Pulse Rate 109 H 116 H Respiratory 20 Rate Blood Pressure 104/73 120/73 O2 Sat by Pulse 95 Oximetry General appearance: Present: no acute distress, well-nourished - EENT Eyes: PERRL, EOM intact ENT: hearing intact, clear oral mucosa Ears: bilateral: normal - Neck Neck: supple, normal ROM - Respiratory Respiratory effort: normal Respiratory: bilateral: CTA - Breasts Breasts: normal - Cardiovascular Rhythm: regular Heart Sounds: Present: S1 & S2. Absent: gallop, rub Extremities: pulses intact, No edema, normal color, Full ROM - Gastrointestinal General gastrointestinal: Present: soft, non-tender, non-distended, normal bowel sounds - Genitourinary Male genitourinary: normal - Integumentary Integumentary: clear, warm, dry - Musculoskeletal Musculoskeletal: 1, strength equal bilaterally - Neurologic Neurologic: moves all extremities - Psychiatric Psychiatric: memory intact, appropriate mood/affect, intact judgment & insight - Labs CBC & Chem 7: 08/02/20 05:55 08/12/20 18:34 Labs: Abnormal lab results 08/12/20 08/13/20 08/13/20 Range/Units 21:09 16:10 21:16 POC Glucose 120 H 140 H 163 H (70-105) mg/dL HEART Score - HEART Score Troponin: Troponin T 0.015 ng/mL (0.00-0.029) 07/07/20 10:00
[2020-08-14] MEDS: INSULIN LISPRO 100 UNIT/ML SUB-Q SCH ×4 (08:30→21:14)
[2020-08-14] MEDS: PHENobarbital 32.4 MG TAB PO SCH ×2 (09:52→21:18)
[2020-08-14] MEDS: guaiFENesin ER 600 MG TAB PO SCH ×2 (09:52→21:16)
[2020-08-14] MEDS: QUEtiapine 200 MG TAB PO SCH (09:52)
[2020-08-14] MEDS: METOPROLOL TARTRATE 25 MG TAB PO SCH ×2 (09:52→21:16)
[2020-08-14] MEDS: LANSOPRAZOLE 30 MG SOLUTAB FEEDTUBE SCH (09:53)
[2020-08-14] MEDS: FOLIC ACID 1 MG TAB PO SCH (09:53)
--- NOTE | 2020-08-14 15:18 | Progress Note ---
Assessment and Plan Assessment and Plan Positive COVID-19 test; 05/10/2020 Negative COVID-19 test; 06/30/2020 --Acute hypoxemic resp failure; oxygen dependent on 4 L NC, requiring intermittent BiPAP Due to COVID-19 pneumonia --Persistent sinus tachycardia: Multifactorial We will closely monitor --Severe COVID-19 bilateral pneumonia Coronavirus protocol: Completed steroids and remdesivir therapy, isolation precautions, Received management per COVID-19 protocol Repeat ivory PCR test negative on 06/30/2020 Isolation discontinued --Pneumothorax status post right chest tube Chest tube removed 07/23/2020 Post removal chest x-ray no pneumothorax Patient is requiring 3 to 4 L nasal cannula And intermittent BiPAP --Severe hypokalemia; resolved --Elevated D-dimers; Patient had CTA chest ; negative for PE, patient already had lower extremity venous Doppler which was negative for DVT --Pseudomonas bacteremia; ID following, completed cefepime Monitor off antibiotics --Severe sepsis/septic shock, monitor off pressors Completed cefepime, monitor off antibiotics -- Acute kidney injury (SEN) , likely vasomotor nephropathy Resolved, avoid nephrotoxins --Acute on chronic anemia Guaiac test positive, GI evaluated the patient Patient H&H is normal range now Hb 11.8 -- Elevated liver function tests; resolved LFTs within normal limits --Colonic distention GI evaluated colonic distention resolved recommend stool softeners -- DVT prophylaxis On therapeutic Lovenox Chest tube removed Patient on 10 L nasal cannula oxygen, wean as tolerated Elevated D-dimers, on empiric therapeutic Lovenox CTA chest negative for PE,LE DVT negative, therapeutic Lovenox DC'd Changed to prophylactic Lovenox Discharge planning per case management CM reports that IRU is evaluating the patient for placement Patient is medically stable for discharge Disposition; IRU placement versus home with home health Subjective Date of service: 08/14/20 Principal diagnosis: Ac hypoxemic resp failure; COVID-19; Severe Sepsis; Shaggy PNA; Alcohol Abuse Interval history: Brief history and hospital course; Patient with pneumothorax status post chest tube placement and removal continues to require 4 to 5 L of nasal cannula oxygen, initially IRU placement was considered, insurance did not approve, daughter is trying for reconsideration for IRU placement, patient pending placement versus home with home health when stable 07/23/2020; patient remains on high flow oxygen, wean oxygen as tolerated, severe hypokalemia Replenish per protocol monitor levels 07/24/2020; patient had chest tube removal yesterday 07/23/2019 and, post removal chest x-ray no pneumothorax no acute abnormalities Patient feels slightly better continues to require high flow oxygen Wean as tolerated, physical and occupational therapy, DC planning 07/26/2020; patient on 3 L nasal cannula oxygen, patient feels better 07/27/2020; patient was saturating well on 3 L of nasal cannula oxygen, however today patient is on high flow oxygen 15 L Complains of some congestion, wean oxygen levels to 3-5 as tolerated Discharge planning LTAC has refused patient,Possible home with home health versus placement when medically stable 07/28/2020; continue to wean oxygen, patient is on 10 L, awaiting placement 07/29/2020; continues to be on 10 L nasal cannula oxygen, wean as tolerated Patient is on empiric therapeutic dose Lovenox, due to elevated D-dimers Patient is stable for CTA chest today, follow the report and adjust Lovenox as needed DC planning per case management, with pending placement 07/30/2020; patient feels slightly better, oxygen reduced to 8 L of nasal cannula Will check PT OT, pending placement 07/31/2020 :Patient on 8 L of nasal cannula oxygen 08/03/2020; patient's oxygen requirement has come down to 3-4 and half liters nasal cannula Will try to wean oxygen as tolerated, respiratory therapist assisting to reach the goal Possible discharge home in 1 to 2 days if stable Plan of care reviewed with the patient and his nurse 08/04/2020; patient is requiring 3 to 4 L nasal cannula oxygen, case management to set up home oxygen Patient is hemodynamically and clinically stable for discharge, pending placement [facility] And of care reviewed with the patient and his nurse as well as the case management 08/05/2020 ; COVID-19 test requested , patient is hemodynamically and clinically stable for discharge Patient is requiring 4 L of nasal cannula oxygen . medically stable for discharge 08/06/2020; patient is hemodynamically and clinically stable for discharge and transfer to IRU unit today Pre-discharge COVID-19 test is negative, pending insurance authorization 08/07/20; patient is accepted by inpatient rehab unit for admission, pending insurance authorization Stable for discharge 08/08/2020; patient is stable for discharge to inpatient rehab unit, pending insurance approval 08/09/2020; business case analyst reports that insurance has not approved inpatient rehab placement for this patient Will evaluate for home oxygen, set up home oxygen if eligible, and plan discharge home with home health when patient is hemodynamically stable 08/10/2020; patient continues to have persistent tachycardia, and persistent hypoxia requiring 4 L of nasal cannula oxygen As well as intermittent BiPAP, continue current management 08/11/2020; patient continues to require oxygen and intermittent BiPAP, awaiting IRU placement Versus home with home health and home oxygen, DC planning per case management 08/12/2020; awaiting IRU placement versus home with home health on home oxygen 08/13/2020 through 08/14/2020 Patient awaiting transfer placement History Interval history: I have seen and examined the patient at the bedside this morning Patient is still requiring 4 L of nasal cannula oxygen Persistent tachycardia Patient feels tired Vital signs noted Objective - Constitutional Vitals: Vital Signs - 12hr 08/14/20 08/14/20 08/14/20 04:57 07:39 09:52 Temperature 99.1 F 98.6 F Pulse Rate 46 L 104 H 106 H Respiratory 20 18 Rate Blood Pressure 106/66 106/66 Blood Pressure 109/66 [Right] O2 Sat by Pulse 99 99 Oximetry 08/14/20 08/14/20 08/14/20 10:00 11:23 11:26 Temperature 98.6 F Pulse Rate 108 H 112 H Respiratory 20 18 Rate Blood Pressure 112/77 Blood Pressure [Right] O2 Sat by Pulse 96 96 Oximetry General appearance: Present: no acute distress, well-nourished - EENT Eyes: PERRL, EOM intact ENT: hearing intact, clear oral mucosa Ears: bilateral: normal - Neck Neck: supple, normal ROM - Respiratory Respiratory effort: normal Respiratory: bilateral: CTA - Breasts Breasts: normal - Cardiovascular Heart rate: 78 Rhythm: regular Heart Sounds: Present: S1 & S2. Absent: gallop, rub Extremities: pulses intact, No edema, normal color, Full ROM - Gastrointestinal General gastrointestinal: Present: soft, non-tender, non-distended, normal bowel sounds - Genitourinary Male genitourinary: normal - Integumentary Integumentary: clear, warm, dry - Musculoskeletal Musculoskeletal: 1, strength equal bilaterally - Neurologic Neurologic: moves all extremities - Psychiatric Psychiatric: memory intact, appropriate mood/affect, intact judgment & insight - Labs CBC & Chem 7: 08/02/20 05:55 08/12/20 18:34 Labs: Abnormal lab results 08/13/20 08/13/20 Range/Units 16:10 21:16 POC Glucose 140 H 163 H (70-105) mg/dL HEART Score - HEART Score Troponin: Troponin T 0.015 ng/mL (0.00-0.029) 07/07/20 10:00
[2020-08-14] MEDS: ENOXAPARIN 40 MG/0.4 ML INJ SUB-Q SCH (21:16)
[2020-08-15] MEDS: INSULIN LISPRO 100 UNIT/ML SUB-Q SCH ×4 (08:25→22:11)
[2020-08-15] MEDS: QUEtiapine 200 MG TAB PO SCH (09:22)
[2020-08-15] MEDS: guaiFENesin ER 600 MG TAB PO SCH ×2 (09:22→22:12)
[2020-08-15] MEDS: PHENobarbital 32.4 MG TAB PO SCH ×2 (09:23→22:12)
[2020-08-15] MEDS: FOLIC ACID 1 MG TAB PO SCH (09:23)
[2020-08-15] MEDS: LANSOPRAZOLE 30 MG SOLUTAB FEEDTUBE SCH (09:23)
[2020-08-15] MEDS: guaiFENesin/CODEINE 100-10MG ORAL LIQD 5 ML PO PRN (09:23)
[2020-08-15] MEDS: METOPROLOL TARTRATE 25 MG TAB PO SCH ×2 (09:23→22:13)
--- NOTE | 2020-08-15 11:03 | Progress Note ---
Assessment and Plan Acute hypoxemic respiratory failure due to COVID-19 Severe COVID infection Severe Sepsis, resolved Bilateral pneumonia Acute kidney injury (SEN) with acute tubular necrosis (ATN)-resolved h/o Alcohol dependence Elevated liver function tests probably secondary COVID -continue to wean supplemental oxygen to keep o2 sats>90% -BIPAP qhs and prn - continue bronchodilators with pulmonary hygiene per RT - continue with accuchecks with glycemic control per SSI (Target blood glucose of 140-180 mg/dL; avoid hypoglycemia) - continue to avoid nephrotoxins, renally dose all medications, conservative fluid management - continue to avoid benzodiazepines, reduce the possibility of delirium - continue to maintain of sleep-wake cycle, avoid delirium - PT/OT/ROM, increase activity - continue mobility protocols for pressure ulcer prevention -CXR, ABG as clinically indicated -CBC, BMP as clinically indicated -Supportive transfusions to keep HgB >7g/dL -continue other care per attending / other consultants -Discharge planning- on going s/p COVID SPECIFIC INTERVENTIONS - SARS CoV-2 IgG positive patient was not a candidate for COVID convalescent plasma -Completed remdesivir -Completed Steroids Subjective Date of service: 08/15/20 Principal diagnosis: Ac hypoxemic resp failure; COVID-19; Severe Sepsis; Shaggy PNA; Alcohol Abuse Interval history: Patient is seen today for: Acute hypoxemic respiratory failure due to COVID-19; Severe Sepsis; Bilateral pneumonia; Alcohol dependence; Elevated liver function tests Seen and examined at bedside; 24hour events reviewed; nursing and respiratory care staff consulted; no adverse overnight events reported to me; lying in bed , remains on high flow oxygen at 4L/min, BIPAP qhs and prn. Less shortness of breath Denies any chest pain, no fevers, no chills, no diarrhea or vomiting; cough is improving Objective Vital Signs - 12hr 08/15/20 08/15/20 08/15/20 00:10 04:42 07:36 Temperature 98.0 F 98.0 F 98.0 F Pulse Rate 110 H 99 H 106 H Respiratory 18 20 16 Rate Blood Pressure 107/72 105/69 100/64 O2 Sat by Pulse 97 99 98 Oximetry 08/15/20 08/15/20 09:23 10:00 Temperature Pulse Rate Respiratory 18 Rate Blood Pressure 117/76 O2 Sat by Pulse 96 Oximetry Constitutional: no acute distress, alert, other (elderly obese male with mildly increased respiratory effort at rest) Eyes: non-icteric ENT: oropharynx moist, other (extubated) Neck: supple, no JVD Effort: mildly labored Ascultation: Bilateral: diminished breath sounds, rhonchi (scant bases), other (r. chest tube) Percussion: Bilateral: not dull Cardiovascular: regular rate and rhythm, other (No R/M) Gastrointestinal: normoactive bowel sounds, soft, non-tender, non-distended (protuberant) Integumentary: normal Extremities: no cyanosis, no edema, pulses normal, no ischemia or petechiae Neurologic: non-focal exam (non focal grossly; weak), pupils equal and round, CN II-XII normal, motor strength normal and (weak ) Psychiatric: mood appropriate, affect normal CBC and BMP: 08/02/20 05:55 08/12/20 18:34 ABG, PT/INR, D-dimer: ABG ABG pH 7.437 (7.320-7.450) 08/11/20 18:43 POC ABG pCO2 51.0 mmHg (32.0-48.0) H 08/11/20 18:43 ABG pCO2 53.1 mm Hg 07/08/20 Unknown POC ABG pO2 84.9 mmHg (83-108) 08/11/20 18:43 ABG pO2 75.3 mm Hg (80.0-90.0) L 07/08/20 Unknown POC ABG HCO3 33.6 08/11/20 18:43 ABG O2 Saturation 96.5 % (95.0-99.0) 07/08/20 Unknown PT/INR, D-dimer PT 11.8 Sec. (12.2-14.9) L 06/22/20 14:29 INR 0.88 (0.87-1.13) 06/22/20 14:29 D-Dimer 1887.82 ng/mlDDU (0-234) H 05/20/20 08:16 Abnormal lab findings: Abnormal Labs 05/09/20 05/09/20 05/09/20 12:59 12:59 12:59 WBC 11.8 H RBC Hgb Hct MCV 96 H MCH 34 H MCHC 35 H RDW Lymph % (Auto) 6.9 L Wake % (Auto) Lymph # (Auto) 0.8 L [place] # (Auto) Baso # (Auto) Seg Neutrophils % 87.5 H Seg Neuts % (Manual) Lymphocytes % (Manual) Nucleated RBC % Seg Neutrophils # 10.3 H Seg Neutrophils # Man Lymphocytes # (Manual) Monocytes # (Manual) Eosinophils # (Manual) PT INR APTT D-Dimer Heparin Anti-Xa Level ABG pH POC ABG pCO2 POC ABG pO2 ABG pO2 ABG HCO3 ABG O2 Saturation ABG Base Excess ABG Hemoglobin ABG Oxyhemoglobin ABG Sodium ABG Potassium ABG Chloride ABG Glucose Oxyhemoglobin Carboxyhemoglobin Sodium 130 L Potassium 3.5 L Chloride 86.4 L Carbon Dioxide BUN 33 H Creatinine 2.3 H Glucose 156 H POC Glucose Lactic Acid Calcium Magnesium Ferritin Total Bilirubin 3.40 H Direct Bilirubin 1.7 H AST 385 H ALT 134 H Alkaline Phosphatase Lactate Dehydrogenase C-Reactive Protein Total Protein Albumin 3.0 L Triglycerides Lipase Arterial Blood Glucose Arterial Blood Ionized Calcium Urine WBC (Auto) Coronavirus (PCR) SARS-CoV-2 IgG Ab Crossmatch 05/09/20 05/09/20 05/09/20 12:59 12:59 12:59 WBC RBC Hgb Hct MCV MCH MCHC RDW Lymph % (Auto) Wake % (Auto) Lymph # (Auto) [place] # (Auto) Baso # (Auto) Seg Neutrophils % Seg Neuts % (Manual) Lymphocytes % (Manual) Nucleated RBC % Seg Neutrophils # Seg Neutrophils # Man Lymphocytes # (Manual) Monocytes # (Manual) Eosinophils # (Manual) PT INR APTT D-Dimer 3242.51 H Heparin Anti-Xa Level ABG pH POC ABG pCO2 POC ABG pO2 ABG pO2 ABG HCO3 ABG O2 Saturation ABG Base Excess ABG Hemoglobin ABG Oxyhemoglobin ABG Sodium ABG Potassium ABG Chloride ABG Glucose Oxyhemoglobin Carboxyhemoglobin Sodium Potassium Chloride Carbon Dioxide BUN Creatinine Glucose 158 H POC Glucose Lactic Acid 3.50 H* Calcium Magnesium Ferritin Total Bilirubin Direct Bilirubin AST ALT Alkaline Phosphatase Lactate Dehydrogenase 2166 H C-Reactive Protein 39.00 H Total Protein Albumin Triglycerides Lipase Arterial Blood Glucose Arterial Blood Ionized Calcium Urine WBC (Auto) Coronavirus (PCR) SARS-CoV-2 IgG Ab Crossmatch 05/09/20 05/09/20 05/09/20 12:59 14:20 14:20 WBC RBC Hgb Hct MCV MCH MCHC RDW Lymph % (Auto) Wake % (Auto) Lymph # (Auto) [place] # (Auto) Baso # (Auto) Seg Neutrophils % Seg Neuts % (Manual) Lymphocytes % (Manual) Nucleated RBC % Seg Neutrophils # Seg Neutrophils # Man Lymphocytes # (Manual) Monocytes # (Manual) Eosinophils # (Manual) PT INR APTT D-Dimer 2861.78 H Heparin Anti-Xa Level ABG pH POC ABG pCO2 POC ABG pO2 ABG pO2 ABG HCO3 ABG O2 Saturation ABG Base Excess ABG Hemoglobin ABG Oxyhemoglobin ABG Sodium ABG Potassium ABG Chloride ABG Glucose Oxyhemoglobin Carboxyhemoglobin Sodium Potassium Chloride Carbon Dioxide BUN Creatinine Glucose POC Glucose Lactic Acid 2.20 H* Calcium Magnesium Ferritin 43412.0 H Total Bilirubin Direct Bilirubin AST ALT Alkaline Phosphatase Lactate Dehydrogenase C-Reactive Protein Total Protein Albumin Triglycerides Lipase Arterial Blood Glucose Arterial Blood Ionized Calcium Urine WBC (Auto) Coronavirus (PCR) SARS-CoV-2 IgG Ab Crossmatch 05/09/20 05/09/20 05/09/20 14:20 14:20 15:56 WBC RBC Hgb Hct MCV MCH MCHC RDW Lymph % (Auto) Wake % (Auto) Lymph # (Auto) [place] # (Auto) Baso # (Auto) Seg Neutrophils % Seg Neuts % (Manual) Lymphocytes % (Manual) Nucleated RBC % Seg Neutrophils # Seg Neutrophils # Man Lymphocytes # (Manual) Monocytes # (Manual) Eosinophils # (Manual) PT INR APTT D-Dimer Heparin Anti-Xa Level ABG pH POC ABG pCO2 POC ABG pO2 57.3 L ABG pO2 ABG HCO3 ABG O2 Saturation ABG Base Excess ABG Hemoglobin ABG Oxyhemoglobin 86.3 L ABG Sodium 129.9 L ABG Potassium ABG Chloride ABG Glucose 146 H Oxyhemoglobin Carboxyhemoglobin Sodium Potassium Chloride Carbon Dioxide BUN Creatinine Glucose 143 H POC Glucose Lactic Acid Calcium Magnesium Ferritin 45281.0 H Total Bilirubin Direct Bilirubin AST ALT Alkaline Phosphatase Lactate Dehydrogenase 1953 H C-Reactive Protein 33.50 H Total Protein Albumin Triglycerides Lipase Arterial Blood Glucose 146 H Arterial Blood Ionized Calcium 3.9 L Urine WBC (Auto) Coronavirus (PCR) SARS-CoV-2 IgG Ab Crossmatch 05/10/20 05/10/20 05/10/20 10:32 10:32 18:50 WBC 15.4 H RBC Hgb Hct MCV 97 H MCH 33 H MCHC RDW 13.1 L Lymph % (Auto) Wake % (Auto) Lymph # (Auto) [place] # (Auto) Baso # (Auto) Seg Neutrophils % Seg Neuts % (Manual) 89.0 H Lymphocytes % (Manual) 8.0 L Nucleated RBC % Seg Neutrophils # Seg Neutrophils # Man 13.7 H Lymphocytes # (Manual) Monocytes # (Manual) Eosinophils # (Manual) PT INR APTT D-Dimer Heparin Anti-Xa Level ABG pH POC ABG pCO2 POC ABG pO2 ABG pO2 ABG HCO3 ABG O2 Saturation ABG Base Excess ABG Hemoglobin ABG Oxyhemoglobin ABG Sodium ABG Potassium ABG Chloride ABG Glucose Oxyhemoglobin Carboxyhemoglobin Sodium 136 L Potassium Chloride 97.4 L Carbon Dioxide BUN 37 H Creatinine 1.7 H Glucose 209 H POC Glucose Lactic Acid Calcium Magnesium Ferritin > 2000.0 H Total Bilirubin Direct Bilirubin AST ALT Alkaline Phosphatase Lactate Dehydrogenase C-Reactive Protein Total Protein Albumin Triglycerides Lipase Arterial Blood Glucose Arterial Blood Ionized Calcium Urine WBC (Auto) Coronavirus (PCR) SARS-CoV-2 IgG Ab Crossmatch 05/10/20 05/10/20 05/10/20 18:50 19:00 Unknown WBC RBC Hgb Hct MCV MCH MCHC RDW Lymph % (Auto) [place] % (Auto) Lymph # (Auto) [place] # (Auto) Baso # (Auto) Seg Neutrophils % Seg Neuts % (Manual) Lymphocytes % (Manual) Nucleated RBC % Seg Neutrophils # Seg Neutrophils # Man Lymphocytes # (Manual) Monocytes # (Manual) Eosinophils # (Manual) PT INR APTT D-Dimer > 60739 H Heparin Anti-Xa Level ABG pH POC ABG pCO2 POC ABG pO2 ABG pO2 ABG HCO3 ABG O2 Saturation ABG Base Excess ABG Hemoglobin ABG Oxyhemoglobin ABG Sodium ABG Potassium ABG Chloride ABG Glucose Oxyhemoglobin Carboxyhemoglobin Sodium Potassium Chloride Carbon Dioxide BUN Creatinine Glucose POC Glucose Lactic Acid Calcium Magnesium Ferritin Total Bilirubin Direct Bilirubin AST ALT Alkaline Phosphatase Lactate Dehydrogenase 1879 H C-Reactive Protein 24.80 H Total Protein Albumin Triglycerides Lipase Arterial Blood Glucose Arterial Blood Ionized Calcium Urine WBC (Auto) 11.0 H Coronavirus (PCR) SARS-CoV-2 IgG Ab Crossmatch 05/10/20 05/11/20 05/11/20 Unknown 07:30 07:30 WBC RBC Hgb Hct MCV MCH MCHC RDW Lymph % (Auto) Wake % (Auto) Lymph # (Auto) [place] # (Auto) Baso # (Auto) Seg Neutrophils % Seg Neuts % (Manual) Lymphocytes % (Manual) Nucleated RBC % Seg Neutrophils # Seg Neutrophils # Man Lymphocytes # (Manual) Monocytes # (Manual) Eosinophils # (Manual) PT INR APTT D-Dimer > 2000 H Heparin Anti-Xa Level ABG pH POC ABG pCO2 POC ABG pO2 ABG pO2 ABG HCO3 ABG O2 Saturation ABG Base Excess ABG Hemoglobin ABG Oxyhemoglobin ABG Sodium ABG Potassium ABG Chloride ABG Glucose Oxyhemoglobin Carboxyhemoglobin Sodium Potassium Chloride 96.3 L Carbon Dioxide BUN 36 H Creatinine Glucose 161 H POC Glucose Lactic Acid Calcium 8.3 L Magnesium Ferritin Total Bilirubin 1.50 H Direct Bilirubin 0.6 H AST 178 H ALT 111 H Alkaline Phosphatase Lactate Dehydrogenase C-Reactive Protein Total Protein Albumin 3.0 L Triglycerides Lipase Arterial Blood Glucose Arterial Blood Ionized Calcium Urine WBC (Auto) Coronavirus (PCR) Positive A SARS-CoV-2 IgG Ab Crossmatch 05/11/20 05/11/20 05/11/20 07:30 07:30 07:30 WBC RBC Hgb Hct MCV MCH MCHC RDW Lymph % (Auto) [place] % (Auto) Lymph # (Auto) [place] # (Auto) Baso # (Auto) Seg Neutrophils % Seg Neuts % (Manual) Lymphocytes % (Manual) Nucleated RBC % Seg Neutrophils # Seg Neutrophils # Man Lymphocytes # (Manual) Monocytes # (Manual) Eosinophils # (Manual) PT INR APTT D-Dimer Heparin Anti-Xa Level ABG pH POC ABG pCO2 POC ABG pO2 ABG pO2 ABG HCO3 ABG O2 Saturation ABG Base Excess ABG Hemoglobin ABG Oxyhemoglobin ABG Sodium ABG Potassium ABG Chloride ABG Glucose Oxyhemoglobin Carboxyhemoglobin Sodium Potassium Chloride Carbon Dioxide BUN Creatinine Glucose POC Glucose Lactic Acid Calcium Magnesium Ferritin 73910.0 H Total Bilirubin Direct Bilirubin AST ALT Alkaline Phosphatase Lactate Dehydrogenase 1523 H C-Reactive Protein 12.90 H Total Protein Albumin Triglycerides Lipase Arterial Blood Glucose Arterial Blood Ionized Calcium Urine WBC (Auto) Coronavirus (PCR) SARS-CoV-2 IgG Ab Reactive A Crossmatch 05/13/20 05/13/20 05/15/20 05:20 05:20 08:15 WBC RBC Hgb Hct MCV MCH MCHC RDW Lymph % (Auto) [place] % (Auto) Lymph # (Auto) [place] # (Auto) Baso # (Auto) Seg Neutrophils % Seg Neuts % (Manual) Lymphocytes % (Manual) Nucleated RBC % Seg Neutrophils # Seg Neutrophils # Man Lymphocytes # (Manual) Monocytes # (Manual) Eosinophils # (Manual) PT INR APTT D-Dimer > 18545 H 5318.28 H Heparin Anti-Xa Level ABG pH POC ABG pCO2 POC ABG pO2 ABG pO2 ABG HCO3 ABG O2 Saturation ABG Base Excess ABG Hemoglobin ABG Oxyhemoglobin ABG Sodium ABG Potassium ABG Chloride ABG Glucose Oxyhemoglobin Carboxyhemoglobin Sodium Potassium Chloride Carbon Dioxide 32 H BUN 30 H Creatinine Glucose 156 H POC Glucose Lactic Acid Calcium Magnesium 2.60 H Ferritin Total Bilirubin 1.40 H Direct Bilirubin AST 121 H ALT 119 H Alkaline Phosphatase Lactate Dehydrogenase 957 H C-Reactive Protein 4.00 H Total Protein Albumin 3.0 L Triglycerides Lipase Arterial Blood Glucose Arterial Blood Ionized Calcium Urine WBC (Auto) Coronavirus (PCR) SARS-CoV-2 IgG Ab Crossmatch 05/15/20 05/15/20 05/15/20 08:15 08:15 08:15 WBC 12.4 H RBC Hgb Hct MCV 98 H MCH 33 H MCHC RDW Lymph % (Auto) 9.7 L [place] % (Auto) Lymph # (Auto) [place] # (Auto) Baso # (Auto) Seg Neutrophils % 86.8 H Seg Neuts % (Manual) Lymphocytes % (Manual) Nucleated RBC % Seg Neutrophils # 10.8 H Seg Neutrophils # Man Lymphocytes # (Manual) Monocytes # (Manual) Eosinophils # (Manual) PT INR APTT D-Dimer Heparin Anti-Xa Level ABG pH POC ABG pCO2 POC ABG pO2 ABG pO2 ABG HCO3 ABG O2 Saturation ABG Base Excess ABG Hemoglobin ABG Oxyhemoglobin ABG Sodium ABG Potassium ABG Chloride ABG Glucose Oxyhemoglobin Carboxyhemoglobin Sodium Potassium Chloride 94.8 L Carbon Dioxide 32 H BUN 22 H Creatinine Glucose 115 H POC Glucose Lactic Acid Calcium 8.3 L Magnesium Ferritin 2494.0 H Total Bilirubin Direct Bilirubin AST 73 H ALT 121 H Alkaline Phosphatase Lactate Dehydrogenase 835 H C-Reactive Protein 3.40 H Total Protein 6.1 L Albumin 3.0 L Triglycerides Lipase Arterial Blood Glucose Arterial Blood Ionized Calcium Urine WBC (Auto) Coronavirus (PCR) SARS-CoV-2 IgG Ab Crossmatch 05/17/20 05/17/20 05/17/20 05:50 05:50 05:50 WBC RBC Hgb Hct MCV MCH MCHC RDW Lymph % (Auto) [place] % (Auto) Lymph # (Auto) [place] # (Auto) Baso # (Auto) Seg Neutrophils % Seg Neuts % (Manual) Lymphocytes % (Manual) Nucleated RBC % Seg Neutrophils # Seg Neutrophils # Man Lymphocytes # (Manual) Monocytes # (Manual) Eosinophils # (Manual) PT INR APTT D-Dimer 2911.42 H Heparin Anti-Xa Level ABG pH POC ABG pCO2 POC ABG pO2 ABG pO2 ABG HCO3 ABG O2 Saturation ABG Base Excess ABG Hemoglobin ABG Oxyhemoglobin ABG Sodium ABG Potassium ABG Chloride ABG Glucose Oxyhemoglobin Carboxyhemoglobin Sodium 136 L Potassium Chloride 96.0 L Carbon Dioxide 34 H BUN 22 H Creatinine Glucose 140 H POC Glucose Lactic Acid Calcium Magnesium Ferritin 2082.0 H Total Bilirubin Direct Bilirubin AST ALT 75 H Alkaline Phosphatase Lactate Dehydrogenase 601 H C-Reactive Protein 2.70 H Total Protein Albumin 2.9 L Triglycerides Lipase Arterial Blood Glucose Arterial Blood Ionized Calcium Urine WBC (Auto) Coronavirus (PCR) SARS-CoV-2 IgG Ab Crossmatch 05/17/20 05/18/20 05/20/20 05:50 12:22 08:16 WBC RBC Hgb Hct MCV 98 H MCH 33 H MCHC RDW Lymph % (Auto) 8.0 L [place] % (Auto) Lymph # (Auto) 0.8 L [place] # (Auto) Baso # (Auto) Seg Neutrophils % 89.3 H Seg Neuts % (Manual) Lymphocytes % (Manual) Nucleated RBC % Seg Neutrophils # 8.8 H Seg Neutrophils # Man Lymphocytes # (Manual) Monocytes # (Manual) Eosinophils # (Manual) PT INR APTT D-Dimer 1887.82 H Heparin Anti-Xa Level ABG pH POC ABG pCO2 POC ABG pO2 ABG pO2 ABG HCO3 ABG O2 Saturation ABG Base Excess ABG Hemoglobin ABG Oxyhemoglobin ABG Sodium ABG Potassium ABG Chloride ABG Glucose Oxyhemoglobin Carboxyhemoglobin Sodium Potassium Chloride Carbon Dioxide BUN Creatinine Glucose POC Glucose 178 H Lactic Acid Calcium Magnesium Ferritin Total Bilirubin Direct Bilirubin AST ALT Alkaline Phosphatase Lactate Dehydrogenase C-Reactive Protein Total Protein Albumin Triglycerides Lipase Arterial Blood Glucose Arterial Blood Ionized Calcium Urine WBC (Auto) Coronavirus (PCR) SARS-CoV-2 IgG Ab Crossmatch 05/20/20 05/20/20 05/21/20 08:16 08:16 21:10 WBC RBC Hgb Hct MCV MCH MCHC RDW Lymph % (Auto) [place] % (Auto) Lymph # (Auto) [place] # (Auto) Baso # (Auto) Seg Neutrophils % Seg Neuts % (Manual) Lymphocytes % (Manual) Nucleated RBC % Seg Neutrophils # Seg Neutrophils # Man Lymphocytes # (Manual) Monocytes # (Manual) Eosinophils # (Manual) PT INR APTT D-Dimer Heparin Anti-Xa Level ABG pH 7.483 H POC ABG pCO2 POC ABG pO2 ABG pO2 50.0 L ABG HCO3 27.0 H ABG O2 Saturation 86.2 L ABG Base Excess 3.7 H ABG Hemoglobin ABG Oxyhemoglobin ABG Sodium ABG Potassium ABG Chloride ABG Glucose Oxyhemoglobin 84.2 L Carboxyhemoglobin Sodium Potassium Chloride Carbon Dioxide BUN Creatinine Glucose POC Glucose Lactic Acid Calcium Magnesium Ferritin 1960.0 H Total Bilirubin Direct Bilirubin AST ALT Alkaline Phosphatase Lactate Dehydrogenase 705 H C-Reactive Protein 3.10 H Total Protein Albumin Triglycerides Lipase Arterial Blood Glucose Arterial Blood Ionized Calcium Urine WBC (Auto) Coronavirus (PCR) SARS-CoV-2 IgG Ab Crossmatch 05/22/20 05/22/20 05/22/20 04:01 07:53 07:53 WBC 19.2 H RBC Hgb Hct MCV 98 H MCH 34 H MCHC RDW Lymph % (Auto) [place] % (Auto) Lymph # (Auto) [place] # (Auto) Baso # (Auto) Seg Neutrophils % Seg Neuts % (Manual) 96.0 H Lymphocytes % (Manual) 1.0 L Nucleated RBC % Seg Neutrophils # Seg Neutrophils # Man 18.4 H Lymphocytes # (Manual) 0.2 L Monocytes # (Manual) Eosinophils # (Manual) PT INR APTT D-Dimer Heparin Anti-Xa Level ABG pH POC ABG pCO2 53.8 H POC ABG pO2 125.5 H ABG pO2 ABG HCO3 ABG O2 Saturation ABG Base Excess ABG Hemoglobin ABG Oxyhemoglobin ABG Sodium 131.8 L ABG Potassium 4.8 H ABG Chloride 94.0 L ABG Glucose 163 H Oxyhemoglobin Carboxyhemoglobin Sodium 131 L Potassium Chloride 93.4 L Carbon Dioxide BUN 40 H Creatinine Glucose 176 H POC Glucose Lactic Acid Calcium Magnesium 2.70 H Ferritin Total Bilirubin 1.80 H Direct Bilirubin AST 45 H ALT 116 H Alkaline Phosphatase 181 H Lactate Dehydrogenase C-Reactive Protein Total Protein Albumin 2.6 L Triglycerides Lipase Arterial Blood Glucose 163 H Arterial Blood Ionized Calcium 4.5 L Urine WBC (Auto) Coronavirus (PCR) SARS-CoV-2 IgG Ab Crossmatch 05/23/20 05/24/20 05/24/20 04:17 03:07 04:08 WBC RBC Hgb Hct MCV MCH MCHC RDW Lymph % (Auto) Wake % (Auto) Lymph # (Auto) [place] # (Auto) Baso # (Auto) Seg Neutrophils % Seg Neuts % (Manual) Lymphocytes % (Manual) Nucleated RBC % Seg Neutrophils # Seg Neutrophils # Man Lymphocytes # (Manual) Monocytes # (Manual) Eosinophils # (Manual) PT INR APTT D-Dimer Heparin Anti-Xa Level ABG pH 7.328 L POC ABG pCO2 POC ABG pO2 ABG pO2 72.8 L 73.4 L ABG HCO3 31.0 H 34.0 H ABG O2 Saturation 93.5 L ABG Base Excess 3.5 H 7.7 H ABG Hemoglobin 13.3 L 12.1 L ABG Oxyhemoglobin ABG Sodium ABG Potassium ABG Chloride ABG Glucose Oxyhemoglobin 91.5 L 94.3 L Carboxyhemoglobin Sodium Potassium Chloride Carbon Dioxide BUN Creatinine Glucose POC Glucose 155 H Lactic Acid Calcium Magnesium Ferritin Total Bilirubin Direct Bilirubin AST ALT Alkaline Phosphatase Lactate Dehydrogenase C-Reactive Protein Total Protein Albumin Triglycerides Lipase Arterial Blood Glucose Arterial Blood Ionized Calcium Urine WBC (Auto) Coronavirus (PCR) SARS-CoV-2 IgG Ab Crossmatch 05/24/20 05/24/20 05/24/20 09:33 12:21 17:52 WBC RBC Hgb Hct MCV MCH MCHC RDW Lymph % (Auto) Wake % (Auto) Lymph # (Auto) [place] # (Auto) Baso # (Auto) Seg Neutrophils % Seg Neuts % (Manual) Lymphocytes % (Manual) Nucleated RBC % Seg Neutrophils # Seg Neutrophils # Man Lymphocytes # (Manual) Monocytes # (Manual) Eosinophils # (Manual) PT INR APTT D-Dimer Heparin Anti-Xa Level ABG pH POC ABG pCO2 POC ABG pO2 ABG pO2 ABG HCO3 ABG O2 Saturation ABG Base Excess ABG Hemoglobin ABG Oxyhemoglobin ABG Sodium ABG Potassium ABG Chloride ABG Glucose Oxyhemoglobin Carboxyhemoglobin Sodium Potassium Chloride Carbon Dioxide 34 H D BUN 28 H Creatinine 0.7 L Glucose 168 H POC Glucose 173 H 164 H Lactic Acid Calcium Magnesium Ferritin Total Bilirubin Direct Bilirubin AST ALT Alkaline Phosphatase Lactate Dehydrogenase C-Reactive Protein Total Protein Albumin Triglycerides Lipase Arterial Blood Glucose Arterial Blood Ionized Calcium Urine WBC (Auto) Coronavirus (PCR) SARS-CoV-2 IgG Ab Crossmatch 05/24/20 05/25/20 05/25/20 23:47 04:29 05:46 WBC RBC Hgb Hct MCV MCH MCHC RDW Lymph % (Auto) [place] % (Auto) Lymph # (Auto) [place] # (Auto) Baso # (Auto) Seg Neutrophils % Seg Neuts % (Manual) Lymphocytes % (Manual) Nucleated RBC % Seg Neutrophils # Seg Neutrophils # Man Lymphocytes # (Manual) Monocytes # (Manual) Eosinophils # (Manual) PT INR APTT D-Dimer Heparin Anti-Xa Level ABG pH POC ABG pCO2 68.6 H POC ABG pO2 ABG pO2 ABG HCO3 ABG O2 Saturation ABG Base Excess ABG Hemoglobin ABG Oxyhemoglobin ABG Sodium ABG Potassium 4.7 H ABG Chloride ABG Glucose 226 H Oxyhemoglobin Carboxyhemoglobin Sodium Potassium Chloride Carbon Dioxide BUN Creatinine Glucose POC Glucose 171 H 201 H Lactic Acid Calcium Magnesium Ferritin Total Bilirubin Direct Bilirubin AST ALT Alkaline Phosphatase Lactate Dehydrogenase C-Reactive Protein Total Protein Albumin Triglycerides Lipase Arterial Blood Glucose 226 H Arterial Blood Ionized Calcium Urine WBC (Auto) Coronavirus (PCR) SARS-CoV-2 IgG Ab Crossmatch 05/25/20 05/25/20 05/25/20 08:37 08:37 12:38 WBC 12.0 H RBC 3.64 L Hgb Hct MCV 99 H MCH 33 H MCHC RDW Lymph % (Auto) [place] % (Auto) Lymph # (Auto) [place] # (Auto) Baso # (Auto) Seg Neutrophils % Seg Neuts % (Manual) Lymphocytes % (Manual) Nucleated RBC % Seg Neutrophils # Seg Neutrophils # Man Lymphocytes # (Manual) Monocytes # (Manual) Eosinophils # (Manual) PT INR APTT D-Dimer Heparin Anti-Xa Level ABG pH POC ABG pCO2 POC ABG pO2 ABG pO2 ABG HCO3 ABG O2 Saturation ABG Base Excess ABG Hemoglobin ABG Oxyhemoglobin ABG Sodium ABG Potassium ABG Chloride ABG Glucose Oxyhemoglobin Carboxyhemoglobin Sodium Potassium Chloride 97.3 L Carbon Dioxide 35 H BUN 25 H Creatinine 0.7 L Glucose 191 H POC Glucose 182 H Lactic Acid Calcium Magnesium Ferritin Total Bilirubin Direct Bilirubin AST ALT Alkaline Phosphatase Lactate Dehydrogenase C-Reactive Protein Total Protein Albumin Triglycerides Lipase Arterial Blood Glucose Arterial Blood Ionized Calcium Urine WBC (Auto) Coronavirus (PCR) SARS-CoV-2 IgG Ab Crossmatch 05/25/20 05/26/20 05/26/20 18:16 00:06 04:50 WBC RBC Hgb Hct MCV MCH MCHC RDW Lymph % (Auto) [place] % (Auto) Lymph # (Auto) [place] # (Auto) Baso # (Auto) Seg Neutrophils % Seg Neuts % (Manual) Lymphocytes % (Manual) Nucleated RBC % Seg Neutrophils # Seg Neutrophils # Man Lymphocytes # (Manual) Monocytes # (Manual) Eosinophils # (Manual) PT INR APTT D-Dimer Heparin Anti-Xa Level ABG pH POC ABG pCO2 POC ABG pO2 ABG pO2 221.5 H ABG HCO3 40.4 H ABG O2 Saturation 99.3 H ABG Base Excess 12.8 H ABG Hemoglobin 10.4 L ABG Oxyhemoglobin ABG Sodium ABG Potassium ABG Chloride ABG Glucose Oxyhemoglobin Carboxyhemoglobin Sodium Potassium Chloride Carbon Dioxide BUN Creatinine Glucose POC Glucose 176 H 152 H Lactic Acid Calcium Magnesium Ferritin Total Bilirubin Direct Bilirubin AST ALT Alkaline Phosphatase Lactate Dehydrogenase C-Reactive Protein Total Protein Albumin Triglycerides Lipase Arterial Blood Glucose Arterial Blood Ionized Calcium Urine WBC (Auto) Coronavirus (PCR) SARS-CoV-2 IgG Ab Crossmatch 05/26/20 05/26/20 05/26/20 06:11 07:51 07:51 WBC 13.4 H RBC 3.64 L Hgb Hct MCV 98 H MCH 33 H MCHC RDW Lymph % (Auto) [place] % (Auto) Lymph # (Auto) [place] # (Auto) Baso # (Auto) Seg Neutrophils % Seg Neuts % (Manual) Lymphocytes % (Manual) Nucleated RBC % Seg Neutrophils # Seg Neutrophils # Man Lymphocytes # (Manual) Monocytes # (Manual) Eosinophils # (Manual) PT INR APTT D-Dimer Heparin Anti-Xa Level ABG pH POC ABG pCO2 POC ABG pO2 ABG pO2 ABG HCO3 ABG O2 Saturation ABG Base Excess ABG Hemoglobin ABG Oxyhemoglobin ABG Sodium ABG Potassium ABG Chloride ABG Glucose Oxyhemoglobin Carboxyhemoglobin Sodium Potassium Chloride 96.6 L Carbon Dioxide 39 H BUN 29 H Creatinine 0.7 L Glucose 174 H POC Glucose 165 H Lactic Acid Calcium Magnesium Ferritin Total Bilirubin Direct Bilirubin AST ALT Alkaline Phosphatase Lactate Dehydrogenase C-Reactive Protein Total Protein Albumin Triglycerides Lipase Arterial Blood Glucose Arterial Blood Ionized Calcium Urine WBC (Auto) Coronavirus (PCR) SARS-CoV-2 IgG Ab Crossmatch 05/26/20 05/27/20 05/27/20 23:23 03:43 05:29 WBC RBC Hgb Hct MCV MCH MCHC RDW Lymph % (Auto) [place] % (Auto) Lymph # (Auto) [place] # (Auto) Baso # (Auto) Seg Neutrophils % Seg Neuts % (Manual) Lymphocytes % (Manual) Nucleated RBC % Seg Neutrophils # Seg Neutrophils # Man Lymphocytes # (Manual) Monocytes # (Manual) Eosinophils # (Manual) PT INR APTT D-Dimer Heparin Anti-Xa Level ABG pH 7.480 H POC ABG pCO2 52.4 H POC ABG pO2 61.4 L ABG pO2 ABG HCO3 ABG O2 Saturation ABG Base Excess ABG Hemoglobin ABG Oxyhemoglobin ABG Sodium 134.9 L ABG Potassium ABG Chloride 95.0 L ABG Glucose 221 H Oxyhemoglobin Carboxyhemoglobin Sodium Potassium Chloride Carbon Dioxide BUN Creatinine Glucose POC Glucose 169 H 227 H Lactic Acid Calcium Magnesium Ferritin Total Bilirubin Direct Bilirubin AST ALT Alkaline Phosphatase Lactate Dehydrogenase C-Reactive Protein Total Protein Albumin Triglycerides Lipase Arterial Blood Glucose 221 H Arterial Blood Ionized Calcium 4.5 L Urine WBC (Auto) Coronavirus (PCR) SARS-CoV-2 IgG Ab Crossmatch 05/27/20 05/27/20 05/27/20 07:19 12:18 13:50 WBC RBC Hgb Hct MCV MCH MCHC RDW Lymph % (Auto) [place] % (Auto) Lymph # (Auto) [place] # (Auto) Baso # (Auto) Seg Neutrophils % Seg Neuts % (Manual) Lymphocytes % (Manual) Nucleated RBC % Seg Neutrophils # Seg Neutrophils # Man Lymphocytes # (Manual) Monocytes # (Manual) Eosinophils # (Manual) PT INR APTT D-Dimer Heparin Anti-Xa Level ABG pH POC ABG pCO2 POC ABG pO2 ABG pO2 ABG HCO3 ABG O2 Saturation ABG Base Excess ABG Hemoglobin ABG Oxyhemoglobin ABG Sodium ABG Potassium ABG Chloride ABG Glucose Oxyhemoglobin Carboxyhemoglobin Sodium Potassium Chloride Carbon Dioxide BUN Creatinine Glucose POC Glucose 114 H 148 H Lactic Acid Calcium Magnesium Ferritin Total Bilirubin Direct Bilirubin AST ALT Alkaline Phosphatase Lactate Dehydrogenase C-Reactive Protein Total Protein Albumin Triglycerides 247 H Lipase Arterial Blood Glucose Arterial Blood Ionized Calcium Urine WBC (Auto) Coronavirus (PCR) SARS-CoV-2 IgG Ab Crossmatch 05/28/20 05/28/20 05/28/20 00:13 04:16 05:22 WBC RBC Hgb Hct MCV MCH MCHC RDW Lymph % (Auto) [place] % (Auto) Lymph # (Auto) [place] # (Auto) Baso # (Auto) Seg Neutrophils % Seg Neuts % (Manual) Lymphocytes % (Manual) Nucleated RBC % Seg Neutrophils # Seg Neutrophils # Man Lymphocytes # (Manual) Monocytes # (Manual) Eosinophils # (Manual) PT INR APTT D-Dimer Heparin Anti-Xa Level ABG pH POC ABG pCO2 64.4 H POC ABG pO2 60.5 L ABG pO2 ABG HCO3 ABG O2 Saturation ABG Base Excess ABG Hemoglobin ABG Oxyhemoglobin ABG Sodium ABG Potassium ABG Chloride 95.0 L ABG Glucose 209 H Oxyhemoglobin Carboxyhemoglobin Sodium Potassium Chloride Carbon Dioxide BUN Creatinine Glucose POC Glucose 155 H 186 H Lactic Acid Calcium Magnesium Ferritin Total Bilirubin Direct Bilirubin AST ALT Alkaline Phosphatase Lactate Dehydrogenase C-Reactive Protein Total Protein Albumin Triglycerides Lipase Arterial Blood Glucose 209 H Arterial Blood Ionized Calcium Urine WBC (Auto) Coronavirus (PCR) SARS-CoV-2 IgG Ab Crossmatch 05/28/20 05/28/20 05/29/20 12:45 17:39 00:37 WBC RBC Hgb Hct MCV MCH MCHC RDW Lymph % (Auto) [place] % (Auto) Lymph # (Auto) [place] # (Auto) Baso # (Auto) Seg Neutrophils % Seg Neuts % (Manual) Lymphocytes % (Manual) Nucleated RBC % Seg Neutrophils # Seg Neutrophils # Man Lymphocytes # (Manual) Monocytes # (Manual) Eosinophils # (Manual) PT INR APTT D-Dimer Heparin Anti-Xa Level ABG pH POC ABG pCO2 POC ABG pO2 ABG pO2 ABG HCO3 ABG O2 Saturation ABG Base Excess ABG Hemoglobin ABG Oxyhemoglobin ABG Sodium ABG Potassium ABG Chloride ABG Glucose Oxyhemoglobin Carboxyhemoglobin Sodium Potassium Chloride Carbon Dioxide BUN Creatinine Glucose POC Glucose 143 H 164 H 221 H Lactic Acid Calcium Magnesium Ferritin Total Bilirubin Direct Bilirubin AST ALT Alkaline Phosphatase Lactate Dehydrogenase C-Reactive Protein Total Protein Albumin Triglycerides Lipase Arterial Blood Glucose Arterial Blood Ionized Calcium Urine WBC (Auto) Coronavirus (PCR) SARS-CoV-2 IgG Ab Crossmatch 05/29/20 05/29/20 05/29/20 04:15 05:33 12:34 WBC RBC Hgb Hct MCV MCH MCHC RDW Lymph % (Auto) [place] % (Auto) Lymph # (Auto) [place] # (Auto) Baso # (Auto) Seg Neutrophils % Seg Neuts % (Manual) Lymphocytes % (Manual) Nucleated RBC % Seg Neutrophils # Seg Neutrophils # Man Lymphocytes # (Manual) Monocytes # (Manual) Eosinophils # (Manual) PT INR APTT D-Dimer Heparin Anti-Xa Level ABG pH 7.463 H POC ABG pCO2 56.3 H POC ABG pO2 81.2 L ABG pO2 ABG HCO3 ABG O2 Saturation ABG Base Excess ABG Hemoglobin ABG Oxyhemoglobin ABG Sodium ABG Potassium ABG Chloride 96.0 L ABG Glucose 194 H Oxyhemoglobin Carboxyhemoglobin Sodium Potassium Chloride Carbon Dioxide BUN Creatinine Glucose POC Glucose 133 H 221 H Lactic Acid Calcium Magnesium Ferritin Total Bilirubin Direct Bilirubin AST ALT Alkaline Phosphatase Lactate Dehydrogenase C-Reactive Protein Total Protein Albumin Triglycerides Lipase Arterial Blood Glucose 194 H Arterial Blood Ionized Calcium 4.5 L Urine WBC (Auto) Coronavirus (PCR) SARS-CoV-2 IgG Ab Crossmatch 05/29/20 05/30/20 05/30/20 18:07 00:12 05:38 WBC RBC Hgb Hct MCV MCH MCHC RDW Lymph % (Auto) [place] % (Auto) Lymph # (Auto) [place] # (Auto) Baso # (Auto) Seg Neutrophils % Seg Neuts % (Manual) Lymphocytes % (Manual) Nucleated RBC % Seg Neutrophils # Seg Neutrophils # Man Lymphocytes # (Manual) Monocytes # (Manual) Eosinophils # (Manual) PT INR APTT D-Dimer Heparin Anti-Xa Level ABG pH POC ABG pCO2 POC ABG pO2 ABG pO2 ABG HCO3 ABG O2 Saturation ABG Base Excess ABG Hemoglobin ABG Oxyhemoglobin ABG Sodium ABG Potassium ABG Chloride ABG Glucose Oxyhemoglobin Carboxyhemoglobin Sodium Potassium Chloride Carbon Dioxide BUN Creatinine Glucose POC Glucose 162 H 190 H 208 H Lactic Acid Calcium Magnesium Ferritin Total Bilirubin Direct Bilirubin AST ALT Alkaline Phosphatase Lactate Dehydrogenase C-Reactive Protein Total Protein Albumin Triglycerides Lipase Arterial Blood Glucose Arterial Blood Ionized Calcium Urine WBC (Auto) Coronavirus (PCR) SARS-CoV-2 IgG Ab Crossmatch 05/30/20 05/30/20 05/30/20 09:30 11:35 11:54 WBC 12.4 H RBC 3.48 L Hgb 11.3 L Hct 34.6 L MCV 99 H MCH 33 H MCHC RDW Lymph % (Auto) [place] % (Auto) Lymph # (Auto) [place] # (Auto) Baso # (Auto) Seg Neutrophils % Seg Neuts % (Manual) Lymphocytes % (Manual) Nucleated RBC % Seg Neutrophils # Seg Neutrophils # Man Lymphocytes # (Manual) Monocytes # (Manual) Eosinophils # (Manual) PT INR APTT D-Dimer Heparin Anti-Xa Level ABG pH 7.455 H POC ABG pCO2 57.5 H POC ABG pO2 81.5 L ABG pO2 ABG HCO3 ABG O2 Saturation ABG Base Excess ABG Hemoglobin ABG Oxyhemoglobin ABG Sodium ABG Potassium ABG Chloride 96.0 L ABG Glucose 204 H Oxyhemoglobin Carboxyhemoglobin Sodium Potassium Chloride Carbon Dioxide BUN Creatinine Glucose POC Glucose 183 H Lactic Acid Calcium Magnesium Ferritin Total Bilirubin Direct Bilirubin AST ALT Alkaline Phosphatase Lactate Dehydrogenase C-Reactive Protein Total Protein Albumin Triglycerides Lipase Arterial Blood Glucose 204 H Arterial Blood Ionized Calcium Urine WBC (Auto) Coronavirus (PCR) SARS-CoV-2 IgG Ab Crossmatch 05/30/20 05/31/20 05/31/20 18:01 00:10 03:22 WBC RBC Hgb Hct MCV MCH MCHC RDW Lymph % (Auto) [place] % (Auto) Lymph # (Auto) [place] # (Auto) Baso # (Auto) Seg Neutrophils % Seg Neuts % (Manual) Lymphocytes % (Manual) Nucleated RBC % Seg Neutrophils # Seg Neutrophils # Man Lymphocytes # (Manual) Monocytes # (Manual) Eosinophils # (Manual) PT INR APTT D-Dimer Heparin Anti-Xa Level ABG pH POC ABG pCO2 60.4 H POC ABG pO2 71.5 L ABG pO2 ABG HCO3 ABG O2 Saturation ABG Base Excess ABG Hemoglobin ABG Oxyhemoglobin ABG Sodium ABG Potassium ABG Chloride 96.0 L ABG Glucose 169 H Oxyhemoglobin Carboxyhemoglobin Sodium Potassium Chloride Carbon Dioxide BUN Creatinine Glucose POC Glucose 184 H 135 H Lactic Acid Calcium Magnesium Ferritin Total Bilirubin Direct Bilirubin AST ALT Alkaline Phosphatase Lactate Dehydrogenase C-Reactive Protein Total Protein Albumin Triglycerides Lipase Arterial Blood Glucose 169 H Arterial Blood Ionized Calcium 4.5 L Urine WBC (Auto) Coronavirus (PCR) SARS-CoV-2 IgG Ab Crossmatch 05/31/20 05/31/20 05/31/20 05:24 11:18 14:41 WBC RBC Hgb Hct MCV MCH MCHC RDW Lymph % (Auto) [place] % (Auto) Lymph # (Auto) [place] # (Auto) Baso # (Auto) Seg Neutrophils % Seg Neuts % (Manual) Lymphocytes % (Manual) Nucleated RBC % Seg Neutrophils # Seg Neutrophils # Man Lymphocytes # (Manual) Monocytes # (Manual) Eosinophils # (Manual) PT INR APTT D-Dimer Heparin Anti-Xa Level ABG pH POC ABG pCO2 POC ABG pO2 ABG pO2 ABG HCO3 ABG O2 Saturation ABG Base Excess ABG Hemoglobin ABG Oxyhemoglobin ABG Sodium ABG Potassium ABG Chloride ABG Glucose Oxyhemoglobin Carboxyhemoglobin Sodium Potassium Chloride 96.8 L Carbon Dioxide 37 H BUN 31 H Creatinine 0.6 L Glucose 213 H POC Glucose 164 H 208 H Lactic Acid Calcium Magnesium Ferritin Total Bilirubin Direct Bilirubin AST ALT Alkaline Phosphatase Lactate Dehydrogenase C-Reactive Protein Total Protein Albumin Triglycerides Lipase Arterial Blood Glucose Arterial Blood Ionized Calcium Urine WBC (Auto) Coronavirus (PCR) SARS-CoV-2 IgG Ab Crossmatch 05/31/20 05/31/20 06/01/20 17:37 23:47 03:48 WBC RBC Hgb Hct MCV MCH MCHC RDW Lymph % (Auto) [place] % (Auto) Lymph # (Auto) [place] # (Auto) Baso # (Auto) Seg Neutrophils % Seg Neuts % (Manual) Lymphocytes % (Manual) Nucleated RBC % Seg Neutrophils # Seg Neutrophils # Man Lymphocytes # (Manual) Monocytes # (Manual) Eosinophils # (Manual) PT INR APTT D-Dimer Heparin Anti-Xa Level ABG pH POC ABG pCO2 59.7 H POC ABG pO2 73.9 L ABG pO2 ABG HCO3 ABG O2 Saturation ABG Base Excess ABG Hemoglobin ABG Oxyhemoglobin ABG Sodium ABG Potassium ABG Chloride 95.0 L ABG Glucose 256 H Oxyhemoglobin Carboxyhemoglobin Sodium Potassium Chloride Carbon Dioxide BUN Creatinine Glucose POC Glucose 168 H 178 H Lactic Acid Calcium Magnesium Ferritin Total Bilirubin Direct Bilirubin AST ALT Alkaline Phosphatase Lactate Dehydrogenase C-Reactive Protein Total Protein Albumin Triglycerides Lipase Arterial Blood Glucose 256 H Arterial Blood Ionized Calcium Urine WBC (Auto) Coronavirus (PCR) SARS-CoV-2 IgG Ab Crossmatch 06/01/20 06/01/20 06/01/20 05:01 07:47 07:47 WBC 14.4 H RBC 3.46 L Hgb 11.1 L Hct 34.3 L MCV 99 H MCH MCHC RDW Lymph % (Auto) [place] % (Auto) Lymph # (Auto) [place] # (Auto) Baso # (Auto) Seg Neutrophils % Seg Neuts % (Manual) 86.0 H Lymphocytes % (Manual) 9.0 L Nucleated RBC % Seg Neutrophils # Seg Neutrophils # Man 12.4 H Lymphocytes # (Manual) Monocytes # (Manual) Eosinophils # (Manual) PT INR APTT D-Dimer Heparin Anti-Xa Level ABG pH POC ABG pCO2 POC ABG pO2 ABG pO2 ABG HCO3 ABG O2 Saturation ABG Base Excess ABG Hemoglobin ABG Oxyhemoglobin ABG Sodium ABG Potassium ABG Chloride ABG Glucose Oxyhemoglobin Carboxyhemoglobin Sodium Potassium Chloride Carbon Dioxide BUN Creatinine Glucose POC Glucose 197 H Lactic Acid Calcium Magnesium Ferritin Total Bilirubin Direct Bilirubin AST ALT Alkaline Phosphatase Lactate Dehydrogenase C-Reactive Protein Total Protein Albumin Triglycerides 244 H Lipase Arterial Blood Glucose Arterial Blood Ionized Calcium Urine WBC (Auto) Coronavirus (PCR) SARS-CoV-2 IgG Ab Crossmatch 06/01/20 06/01/20 06/01/20 07:47 11:46 18:15 WBC RBC Hgb Hct MCV MCH MCHC RDW Lymph % (Auto) [place] % (Auto) Lymph # (Auto) [place] # (Auto) Baso # (Auto) Seg Neutrophils % Seg Neuts % (Manual) Lymphocytes % (Manual) Nucleated RBC % Seg Neutrophils # Seg Neutrophils # Man Lymphocytes # (Manual) Monocytes # (Manual) Eosinophils # (Manual) PT INR APTT D-Dimer Heparin Anti-Xa Level ABG pH POC ABG pCO2 POC ABG pO2 ABG pO2 ABG HCO3 ABG O2 Saturation ABG Base Excess ABG Hemoglobin ABG Oxyhemoglobin ABG Sodium ABG Potassium ABG Chloride ABG Glucose Oxyhemoglobin Carboxyhemoglobin Sodium Potassium Chloride 95.4 L Carbon Dioxide 35 H BUN 30 H Creatinine 0.5 L Glucose 214 H POC Glucose 181 H 221 H Lactic Acid Calcium Magnesium Ferritin Total Bilirubin Direct Bilirubin AST 54 H ALT 235 H Alkaline Phosphatase Lactate Dehydrogenase C-Reactive Protein Total Protein Albumin 2.9 L Triglycerides Lipase Arterial Blood Glucose Arterial Blood Ionized Calcium Urine WBC (Auto) Coronavirus (PCR) SARS-CoV-2 IgG Ab Crossmatch 06/01/20 06/02/20 06/02/20 23:12 04:00 05:31 WBC RBC Hgb Hct MCV MCH MCHC RDW Lymph % (Auto) [place] % (Auto) Lymph # (Auto) [place] # (Auto) Baso # (Auto) Seg Neutrophils % Seg Neuts % (Manual) Lymphocytes % (Manual) Nucleated RBC % Seg Neutrophils # Seg Neutrophils # Man Lymphocytes # (Manual) Monocytes # (Manual) Eosinophils # (Manual) PT INR APTT D-Dimer Heparin Anti-Xa Level ABG pH 7.465 H POC ABG pCO2 POC ABG pO2 ABG pO2 203.4 H ABG HCO3 41.2 H ABG O2 Saturation 99.3 H ABG Base Excess 15.1 H ABG Hemoglobin 11.5 L ABG Oxyhemoglobin ABG Sodium ABG Potassium ABG Chloride ABG Glucose Oxyhemoglobin Carboxyhemoglobin Sodium Potassium Chloride Carbon Dioxide BUN Creatinine Glucose POC Glucose 197 H 184 H Lactic Acid Calcium Magnesium Ferritin Total Bilirubin Direct Bilirubin AST ALT Alkaline Phosphatase Lactate Dehydrogenase C-Reactive Protein Total Protein Albumin Triglycerides Lipase Arterial Blood Glucose Arterial Blood Ionized Calcium Urine WBC (Auto) Coronavirus (PCR) SARS-CoV-2 IgG Ab Crossmatch 06/02/20 06/02/20 06/02/20 11:49 18:06 23:00 WBC RBC Hgb Hct MCV MCH MCHC RDW Lymph % (Auto) [place] % (Auto) Lymph # (Auto) [place] # (Auto) Baso # (Auto) Seg Neutrophils % Seg Neuts % (Manual) Lymphocytes % (Manual) Nucleated RBC % Seg Neutrophils # Seg Neutrophils # Man Lymphocytes # (Manual) Monocytes # (Manual) Eosinophils # (Manual) PT INR APTT D-Dimer Heparin Anti-Xa Level ABG pH POC ABG pCO2 POC ABG pO2 ABG pO2 ABG HCO3 ABG O2 Saturation ABG Base Excess ABG Hemoglobin ABG Oxyhemoglobin ABG Sodium ABG Potassium ABG Chloride ABG Glucose Oxyhemoglobin Carboxyhemoglobin Sodium Potassium Chloride Carbon Dioxide BUN Creatinine Glucose POC Glucose 195 H 177 H 228 H Lactic Acid Calcium Magnesium Ferritin Total Bilirubin Direct Bilirubin AST ALT Alkaline Phosphatase Lactate Dehydrogenase C-Reactive Protein Total Protein Albumin Triglycerides Lipase Arterial Blood Glucose Arterial Blood Ionized Calcium Urine WBC (Auto) Coronavirus (PCR) SARS-CoV-2 IgG Ab Crossmatch 06/03/20 06/03/20 06/03/20 03:58 05:19 12:21 WBC RBC Hgb Hct MCV MCH MCHC RDW Lymph % (Auto) [place] % (Auto) Lymph # (Auto) [place] # (Auto) Baso # (Auto) Seg Neutrophils % Seg Neuts % (Manual) Lymphocytes % (Manual) Nucleated RBC % Seg Neutrophils # Seg Neutrophils # Man Lymphocytes # (Manual) Monocytes # (Manual) Eosinophils # (Manual) PT INR APTT D-Dimer Heparin Anti-Xa Level ABG pH POC ABG pCO2 POC ABG pO2 ABG pO2 171.0 H ABG HCO3 42.8 H ABG O2 Saturation ABG Base Excess 15.6 H ABG Hemoglobin 12.3 L ABG Oxyhemoglobin ABG Sodium ABG Potassium ABG Chloride ABG Glucose Oxyhemoglobin Carboxyhemoglobin Sodium Potassium Chloride Carbon Dioxide BUN Creatinine Glucose POC Glucose 122 H 207 H Lactic Acid Calcium Magnesium Ferritin Total Bilirubin Direct Bilirubin AST ALT Alkaline Phosphatase Lactate Dehydrogenase C-Reactive Protein Total Protein Albumin Triglycerides Lipase Arterial Blood Glucose Arterial Blood Ionized Calcium Urine WBC (Auto) Coronavirus (PCR) SARS-CoV-2 IgG Ab Crossmatch 06/03/20 06/03/20 06/04/20 17:27 23:50 03:55 WBC RBC Hgb Hct MCV MCH MCHC RDW Lymph % (Auto) [place] % (Auto) Lymph # (Auto) [place] # (Auto) Baso # (Auto) Seg Neutrophils % Seg Neuts % (Manual) Lymphocytes % (Manual) Nucleated RBC % Seg Neutrophils # Seg Neutrophils # Man Lymphocytes # (Manual) Monocytes # (Manual) Eosinophils # (Manual) PT INR APTT D-Dimer Heparin Anti-Xa Level ABG pH POC ABG pCO2 POC ABG pO2 ABG pO2 117.2 H ABG HCO3 42.4 H ABG O2 Saturation ABG Base Excess 15.3 H ABG Hemoglobin 10.5 L ABG Oxyhemoglobin ABG Sodium ABG Potassium ABG Chloride ABG Glucose Oxyhemoglobin Carboxyhemoglobin Sodium Potassium Chloride Carbon Dioxide BUN Creatinine Glucose POC Glucose 157 H 214 H Lactic Acid Calcium Magnesium Ferritin Total Bilirubin Direct Bilirubin AST ALT Alkaline Phosphatase Lactate Dehydrogenase C-Reactive Protein Total Protein Albumin Triglycerides Lipase Arterial Blood Glucose Arterial Blood Ionized Calcium Urine WBC (Auto) Coronavirus (PCR) SARS-CoV-2 IgG Ab Crossmatch 06/04/20 06/04/20 06/04/20 05:49 11:41 17:30 WBC RBC Hgb Hct MCV MCH MCHC RDW Lymph % (Auto) [place] % (Auto) Lymph # (Auto) [place] # (Auto) Baso # (Auto) Seg Neutrophils % Seg Neuts % (Manual) Lymphocytes % (Manual) Nucleated RBC % Seg Neutrophils # Seg Neutrophils # Man Lymphocytes # (Manual) Monocytes # (Manual) Eosinophils # (Manual) PT INR APTT D-Dimer Heparin Anti-Xa Level ABG pH POC ABG pCO2 POC ABG pO2 ABG pO2 ABG HCO3 ABG O2 Saturation ABG Base Excess ABG Hemoglobin ABG Oxyhemoglobin ABG Sodium ABG Potassium ABG Chloride ABG Glucose Oxyhemoglobin Carboxyhemoglobin Sodium Potassium Chloride Carbon Dioxide BUN Creatinine Glucose POC Glucose 149 H 233 H 156 H Lactic Acid Calcium Magnesium Ferritin Total Bilirubin Direct Bilirubin AST ALT Alkaline Phosphatase Lactate Dehydrogenase C-Reactive Protein Total Protein Albumin Triglycerides Lipase Arterial Blood Glucose Arterial Blood Ionized Calcium Urine WBC (Auto) Coronavirus (PCR) SARS-CoV-2 IgG Ab Crossmatch 06/04/20 06/04/20 06/04/20 19:01 20:53 23:41 WBC RBC 3.18 L Hgb 10.8 L Hct 31.8 L MCV 100 H MCH 34 H MCHC RDW Lymph % (Auto) [place] % (Auto) Lymph # (Auto) [place] # (Auto) Baso # (Auto) Seg Neutrophils % Seg Neuts % (Manual) 86.0 H Lymphocytes % (Manual) 10.0 L Nucleated RBC % 1.0 H Seg Neutrophils # Seg Neutrophils # Man 8.5 H Lymphocytes # (Manual) 1.0 L Monocytes # (Manual) Eosinophils # (Manual) PT INR APTT D-Dimer Heparin Anti-Xa Level ABG pH POC ABG pCO2 POC ABG pO2 ABG pO2 ABG HCO3 ABG O2 Saturation ABG Base Excess ABG Hemoglobin ABG Oxyhemoglobin ABG Sodium ABG Potassium ABG Chloride ABG Glucose Oxyhemoglobin Carboxyhemoglobin Sodium Potassium 3.4 L D Chloride 96.5 L Carbon Dioxide 41 H* BUN 27 H Creatinine 0.5 L Glucose 173 H POC Glucose 217 H Lactic Acid Calcium Magnesium Ferritin Total Bilirubin Direct Bilirubin AST ALT Alkaline Phosphatase Lactate Dehydrogenase C-Reactive Protein Total Protein Albumin Triglycerides Lipase Arterial Blood Glucose Arterial Blood Ionized Calcium Urine WBC (Auto) Coronavirus (PCR) SARS-CoV-2 IgG Ab Crossmatch 06/05/20 06/05/20 06/05/20 06:05 11:54 12:35 WBC RBC Hgb Hct MCV MCH MCHC RDW Lymph % (Auto) [place] % (Auto) Lymph # (Auto) [place] # (Auto) Baso # (Auto) Seg Neutrophils % Seg Neuts % (Manual) Lymphocytes % (Manual) Nucleated RBC % Seg Neutrophils # Seg Neutrophils # Man Lymphocytes # (Manual) Monocytes # (Manual) Eosinophils # (Manual) PT INR APTT D-Dimer Heparin Anti-Xa Level ABG pH POC ABG pCO2 POC ABG pO2 ABG pO2 127.9 H ABG HCO3 41.1 H ABG O2 Saturation ABG Base Excess 13.0 H ABG Hemoglobin 13.4 L ABG Oxyhemoglobin ABG Sodium ABG Potassium ABG Chloride ABG Glucose Oxyhemoglobin Carboxyhemoglobin Sodium Potassium Chloride Carbon Dioxide BUN Creatinine Glucose POC Glucose 137 H 211 H Lactic Acid Calcium Magnesium Ferritin Total Bilirubin Direct Bilirubin AST ALT Alkaline Phosphatase Lactate Dehydrogenase C-Reactive Protein Total Protein Albumin Triglycerides Lipase Arterial Blood Glucose Arterial Blood Ionized Calcium Urine WBC (Auto) Coronavirus (PCR) SARS-CoV-2 IgG Ab Crossmatch 06/05/20 06/05/20 06/06/20 17:03 23:49 04:42 WBC RBC Hgb Hct MCV MCH MCHC RDW Lymph % (Auto) [place] % (Auto) Lymph # (Auto) [place] # (Auto) Baso # (Auto) Seg Neutrophils % Seg Neuts % (Manual) Lymphocytes % (Manual) Nucleated RBC % Seg Neutrophils # Seg Neutrophils # Man Lymphocytes # (Manual) Monocytes # (Manual) Eosinophils # (Manual) PT INR APTT D-Dimer Heparin Anti-Xa Level ABG pH POC ABG pCO2 56.1 H POC ABG pO2 52.5 L ABG pO2 ABG HCO3 ABG O2 Saturation ABG Base Excess ABG Hemoglobin 11.7 L ABG Oxyhemoglobin ABG Sodium ABG Potassium 3.3 L ABG Chloride 95.0 L ABG Glucose 156 H Oxyhemoglobin Carboxyhemoglobin Sodium Potassium Chloride Carbon Dioxide BUN Creatinine Glucose POC Glucose 159 H 194 H Lactic Acid Calcium Magnesium Ferritin Total Bilirubin Direct Bilirubin AST ALT Alkaline Phosphatase Lactate Dehydrogenase C-Reactive Protein Total Protein Albumin Triglycerides Lipase Arterial Blood Glucose 156 H Arterial Blood Ionized Calcium Urine WBC (Auto) Coronavirus (PCR) SARS-CoV-2 IgG Ab Crossmatch 06/06/20 06/06/20 06/06/20 05:57 12:06 17:38 WBC RBC Hgb Hct MCV MCH MCHC RDW Lymph % (Auto) [place] % (Auto) Lymph # (Auto) [place] # (Auto) Baso # (Auto) Seg Neutrophils % Seg Neuts % (Manual) Lymphocytes % (Manual) Nucleated RBC % Seg Neutrophils # Seg Neutrophils # Man Lymphocytes # (Manual) Monocytes # (Manual) Eosinophils # (Manual) PT INR APTT D-Dimer Heparin Anti-Xa Level ABG pH POC ABG pCO2 POC ABG pO2 ABG pO2 ABG HCO3 ABG O2 Saturation ABG Base Excess ABG Hemoglobin ABG Oxyhemoglobin ABG Sodium ABG Potassium ABG Chloride ABG Glucose Oxyhemoglobin Carboxyhemoglobin Sodium Potassium Chloride Carbon Dioxide BUN Creatinine Glucose POC Glucose 144 H 230 H 162 H Lactic Acid Calcium Magnesium Ferritin Total Bilirubin Direct Bilirubin AST ALT Alkaline Phosphatase Lactate Dehydrogenase C-Reactive Protein Total Protein Albumin Triglycerides Lipase Arterial Blood Glucose Arterial Blood Ionized Calcium Urine WBC (Auto) Coronavirus (PCR) SARS-CoV-2 IgG Ab Crossmatch 06/06/20 06/07/20 06/07/20 23:50 04:34 06:03 WBC RBC Hgb Hct MCV MCH MCHC RDW Lymph % (Auto) [place] % (Auto) Lymph # (Auto) [place] # (Auto) Baso # (Auto) Seg Neutrophils % Seg Neuts % (Manual) Lymphocytes % (Manual) Nucleated RBC % Seg Neutrophils # Seg Neutrophils # Man Lymphocytes # (Manual) Monocytes # (Manual) Eosinophils # (Manual) PT INR APTT D-Dimer Heparin Anti-Xa Level ABG pH 7.511 H POC ABG pCO2 53.5 H POC ABG pO2 114.5 H ABG pO2 ABG HCO3 ABG O2 Saturation ABG Base Excess ABG Hemoglobin 9.4 L ABG Oxyhemoglobin ABG Sodium 134.5 L ABG Potassium ABG Chloride 94.0 L ABG Glucose 186 H Oxyhemoglobin Carboxyhemoglobin Sodium Potassium Chloride Carbon Dioxide BUN Creatinine Glucose POC Glucose 181 H 155 H Lactic Acid Calcium Magnesium Ferritin Total Bilirubin Direct Bilirubin AST ALT Alkaline Phosphatase Lactate Dehydrogenase C-Reactive Protein Total Protein Albumin Triglycerides Lipase Arterial Blood Glucose 186 H Arterial Blood Ionized Calcium 4.5 L Urine WBC (Auto) Coronavirus (PCR) SARS-CoV-2 IgG Ab Crossmatch 06/07/20 06/07/20 06/07/20 13:41 14:58 14:58 WBC RBC 2.72 L Hgb 9.3 L Hct 27.2 L MCV 100 H MCH 34 H MCHC RDW Lymph % (Auto) [place] % (Auto) Lymph # (Auto) [place] # (Auto) Baso # (Auto) Seg Neutrophils % Seg Neuts % (Manual) Lymphocytes % (Manual) Nucleated RBC % Seg Neutrophils # Seg Neutrophils # Man Lymphocytes # (Manual) Monocytes # (Manual) Eosinophils # (Manual) PT INR APTT D-Dimer Heparin Anti-Xa Level ABG pH POC ABG pCO2 POC ABG pO2 ABG pO2 ABG HCO3 ABG O2 Saturation ABG Base Excess ABG Hemoglobin ABG Oxyhemoglobin ABG Sodium ABG Potassium ABG Chloride ABG Glucose Oxyhemoglobin Carboxyhemoglobin Sodium Potassium Chloride 93.5 L Carbon Dioxide 39 H BUN 22 H Creatinine 0.4 L Glucose 188 H POC Glucose 201 H Lactic Acid Calcium Magnesium Ferritin Total Bilirubin Direct Bilirubin AST 61 H ALT 273 H Alkaline Phosphatase Lactate Dehydrogenase C-Reactive Protein Total Protein 5.9 L Albumin 2.7 L Triglycerides Lipase Arterial Blood Glucose Arterial Blood Ionized Calcium Urine WBC (Auto) Coronavirus (PCR) SARS-CoV-2 IgG Ab Crossmatch 06/07/20 06/08/20 06/08/20 23:18 05:31 12:07 WBC RBC Hgb Hct MCV MCH MCHC RDW Lymph % (Auto) [place] % (Auto) Lymph # (Auto) [place] # (Auto) Baso # (Auto) Seg Neutrophils % Seg Neuts % (Manual) Lymphocytes % (Manual) Nucleated RBC % Seg Neutrophils # Seg Neutrophils # Man Lymphocytes # (Manual) Monocytes # (Manual) Eosinophils # (Manual) PT INR APTT D-Dimer Heparin Anti-Xa Level ABG pH POC ABG pCO2 POC ABG pO2 ABG pO2 ABG HCO3 ABG O2 Saturation ABG Base Excess ABG Hemoglobin ABG Oxyhemoglobin ABG Sodium ABG Potassium ABG Chloride ABG Glucose Oxyhemoglobin Carboxyhemoglobin Sodium Potassium Chloride Carbon Dioxide BUN Creatinine Glucose POC Glucose 214 H 129 H 179 H Lactic Acid Calcium Magnesium Ferritin Total Bilirubin Direct Bilirubin AST ALT Alkaline Phosphatase Lactate Dehydrogenase C-Reactive Protein Total Protein Albumin Triglycerides Lipase Arterial Blood Glucose Arterial Blood Ionized Calcium Urine WBC (Auto) Coronavirus (PCR) SARS-CoV-2 IgG Ab Crossmatch 06/08/20 06/08/20 06/09/20 18:18 23:35 05:42 WBC RBC Hgb Hct MCV MCH MCHC RDW Lymph % (Auto) [place] % (Auto) Lymph # (Auto) [place] # (Auto) Baso # (Auto) Seg Neutrophils % Seg Neuts % (Manual) Lymphocytes % (Manual) Nucleated RBC % Seg Neutrophils # Seg Neutrophils # Man Lymphocytes # (Manual) Monocytes # (Manual) Eosinophils # (Manual) PT INR APTT D-Dimer Heparin Anti-Xa Level ABG pH POC ABG pCO2 POC ABG pO2 ABG pO2 ABG HCO3 ABG O2 Saturation ABG Base Excess ABG Hemoglobin ABG Oxyhemoglobin ABG Sodium ABG Potassium ABG Chloride ABG Glucose Oxyhemoglobin Carboxyhemoglobin Sodium Potassium Chloride Carbon Dioxide BUN Creatinine Glucose POC Glucose 172 H 177 H 137 H Lactic Acid Calcium Magnesium Ferritin Total Bilirubin Direct Bilirubin AST ALT Alkaline Phosphatase Lactate Dehydrogenase C-Reactive Protein Total Protein Albumin Triglycerides Lipase Arterial Blood Glucose Arterial Blood Ionized Calcium Urine WBC (Auto) Coronavirus (PCR) SARS-CoV-2 IgG Ab Crossmatch 06/09/20 06/09/20 06/09/20 06:20 07:55 07:55 WBC 12.4 H RBC 3.26 L Hgb 11.1 L Hct 33.4 L D MCV 102 H MCH 34 H MCHC RDW Lymph % (Auto) [place] % (Auto) Lymph # (Auto) [place] # (Auto) Baso # (Auto) Seg Neutrophils % Seg Neuts % (Manual) Lymphocytes % (Manual) Nucleated RBC % Seg Neutrophils # Seg Neutrophils # Man Lymphocytes # (Manual) Monocytes # (Manual) Eosinophils # (Manual) PT INR APTT D-Dimer Heparin Anti-Xa Level ABG pH 7.466 H POC ABG pCO2 50.7 H POC ABG pO2 53.0 L ABG pO2 ABG HCO3 ABG O2 Saturation ABG Base Excess ABG Hemoglobin ABG Oxyhemoglobin ABG Sodium ABG Potassium 2.9 L ABG Chloride 93.0 L ABG Glucose 138 H Oxyhemoglobin Carboxyhemoglobin Sodium Potassium 3.0 L Chloride 92.3 L Carbon Dioxide 37 H BUN 21 H Creatinine 0.6 L Glucose 120 H POC Glucose Lactic Acid Calcium Magnesium Ferritin Total Bilirubin Direct Bilirubin AST ALT Alkaline Phosphatase Lactate Dehydrogenase C-Reactive Protein Total Protein Albumin Triglycerides Lipase Arterial Blood Glucose 138 H Arterial Blood Ionized Calcium 4.5 L Urine WBC (Auto) Coronavirus (PCR) SARS-CoV-2 IgG Ab Crossmatch 06/09/20 06/09/20 06/10/20 11:22 18:32 04:46 WBC RBC Hgb Hct MCV MCH MCHC RDW Lymph % (Auto) [place] % (Auto) Lymph # (Auto) [place] # (Auto) Baso # (Auto) Seg Neutrophils % Seg Neuts % (Manual) Lymphocytes % (Manual) Nucleated RBC % Seg Neutrophils # Seg Neutrophils # Man Lymphocytes # (Manual) Monocytes # (Manual) Eosinophils # (Manual) PT INR APTT D-Dimer Heparin Anti-Xa Level ABG pH 7.501 H POC ABG pCO2 POC ABG pO2 126.5 H ABG pO2 ABG HCO3 ABG O2 Saturation ABG Base Excess ABG Hemoglobin 10.3 L ABG Oxyhemoglobin ABG Sodium ABG Potassium ABG Chloride ABG Glucose 220 H Oxyhemoglobin Carboxyhemoglobin Sodium Potassium Chloride Carbon Dioxide BUN Creatinine Glucose POC Glucose 117 H 121 H Lactic Acid Calcium Magnesium Ferritin Total Bilirubin Direct Bilirubin AST ALT Alkaline Phosphatase Lactate Dehydrogenase C-Reactive Protein Total Protein Albumin Triglycerides Lipase Arterial Blood Glucose 220 H Arterial Blood Ionized Calcium Urine WBC (Auto) Coronavirus (PCR) SARS-CoV-2 IgG Ab Crossmatch 06/10/20 06/10/20 06/10/20 05:30 09:38 12:03 WBC RBC Hgb Hct MCV MCH MCHC RDW Lymph % (Auto) [place] % (Auto) Lymph # (Auto) [place] # (Auto) Baso # (Auto) Seg Neutrophils % Seg Neuts % (Manual) Lymphocytes % (Manual) Nucleated RBC % Seg Neutrophils # Seg Neutrophils # Man Lymphocytes # (Manual) Monocytes # (Manual) Eosinophils # (Manual) PT INR APTT D-Dimer Heparin Anti-Xa Level ABG pH POC ABG pCO2 POC ABG pO2 ABG pO2 ABG HCO3 ABG O2 Saturation ABG Base Excess ABG Hemoglobin ABG Oxyhemoglobin ABG Sodium ABG Potassium ABG Chloride ABG Glucose Oxyhemoglobin Carboxyhemoglobin Sodium Potassium Chloride Carbon Dioxide BUN Creatinine Glucose POC Glucose 181 H 204 H Lactic Acid Calcium Magnesium Ferritin Total Bilirubin Direct Bilirubin AST ALT Alkaline Phosphatase Lactate Dehydrogenase C-Reactive Protein Total Protein Albumin Triglycerides 738 H Lipase Arterial Blood Glucose Arterial Blood Ionized Calcium Urine WBC (Auto) Coronavirus (PCR) SARS-CoV-2 IgG Ab Crossmatch 06/10/20 06/11/20 06/11/20 17:17 00:04 04:38 WBC RBC Hgb Hct MCV MCH MCHC RDW Lymph % (Auto) [place] % (Auto) Lymph # (Auto) [place] # (Auto) Baso # (Auto) Seg Neutrophils % Seg Neuts % (Manual) Lymphocytes % (Manual) Nucleated RBC % Seg Neutrophils # Seg Neutrophils # Man Lymphocytes # (Manual) Monocytes # (Manual) Eosinophils # (Manual) PT INR APTT D-Dimer Heparin Anti-Xa Level ABG pH 7.479 H POC ABG pCO2 POC ABG pO2 76.7 L ABG pO2 ABG HCO3 ABG O2 Saturation ABG Base Excess ABG Hemoglobin 9.8 L ABG Oxyhemoglobin ABG Sodium 135.8 L ABG Potassium ABG Chloride ABG Glucose 238 H Oxyhemoglobin Carboxyhemoglobin Sodium Potassium Chloride Carbon Dioxide BUN Creatinine Glucose POC Glucose 156 H 178 H Lactic Acid Calcium Magnesium Ferritin Total Bilirubin Direct Bilirubin AST ALT Alkaline Phosphatase Lactate Dehydrogenase C-Reactive Protein Total Protein Albumin Triglycerides Lipase Arterial Blood Glucose 238 H Arterial Blood Ionized Calcium Urine WBC (Auto) Coronavirus (PCR) SARS-CoV-2 IgG Ab Crossmatch 06/11/20 06/11/20 06/11/20 05:21 06:52 11:50 WBC RBC Hgb Hct MCV MCH MCHC RDW Lymph % (Auto) [place] % (Auto) Lymph # (Auto) [place] # (Auto) Baso # (Auto) Seg Neutrophils % Seg Neuts % (Manual) Lymphocytes % (Manual) Nucleated RBC % Seg Neutrophils # Seg Neutrophils # Man Lymphocytes # (Manual) Monocytes # (Manual) Eosinophils # (Manual) PT INR APTT D-Dimer Heparin Anti-Xa Level ABG pH POC ABG pCO2 POC ABG pO2 ABG pO2 ABG HCO3 ABG O2 Saturation ABG Base Excess ABG Hemoglobin ABG Oxyhemoglobin ABG Sodium ABG Potassium ABG Chloride ABG Glucose Oxyhemoglobin Carboxyhemoglobin Sodium Potassium Chloride Carbon Dioxide BUN Creatinine Glucose POC Glucose 215 H 187 H Lactic Acid Calcium Magnesium Ferritin Total Bilirubin Direct Bilirubin AST ALT Alkaline Phosphatase Lactate Dehydrogenase C-Reactive Protein Total Protein Albumin Triglycerides 331 H Lipase Arterial Blood Glucose Arterial Blood Ionized Calcium Urine WBC (Auto) Coronavirus (PCR) SARS-CoV-2 IgG Ab Crossmatch 06/11/20 06/11/20 06/12/20 17:49 23:35 04:52 WBC RBC Hgb Hct MCV MCH MCHC RDW Lymph % (Auto) [place] % (Auto) Lymph # (Auto) [place] # (Auto) Baso # (Auto) Seg Neutrophils % Seg Neuts % (Manual) Lymphocytes % (Manual) Nucleated RBC % Seg Neutrophils # Seg Neutrophils # Man Lymphocytes # (Manual) Monocytes # (Manual) Eosinophils # (Manual) PT INR APTT D-Dimer Heparin Anti-Xa Level ABG pH 7.486 H POC ABG pCO2 POC ABG pO2 ABG pO2 ABG HCO3 ABG O2 Saturation ABG Base Excess ABG Hemoglobin 9.4 L ABG Oxyhemoglobin ABG Sodium ABG Potassium 3.2 L ABG Chloride ABG Glucose 209 H Oxyhemoglobin Carboxyhemoglobin Sodium Potassium Chloride Carbon Dioxide BUN Creatinine Glucose POC Glucose 211 H 200 H Lactic Acid Calcium Magnesium Ferritin Total Bilirubin Direct Bilirubin AST ALT Alkaline Phosphatase Lactate Dehydrogenase C-Reactive Protein Total Protein Albumin Triglycerides Lipase Arterial Blood Glucose 209 H Arterial Blood Ionized Calcium Urine WBC (Auto) Coronavirus (PCR) SARS-CoV-2 IgG Ab Crossmatch 06/12/20 06/12/20 06/12/20 05:13 11:47 18:33 WBC RBC Hgb Hct MCV MCH MCHC RDW Lymph % (Auto) [place] % (Auto) Lymph # (Auto) [place] # (Auto) Baso # (Auto) Seg Neutrophils % Seg Neuts % (Manual) Lymphocytes % (Manual) Nucleated RBC % Seg Neutrophils # Seg Neutrophils # Man Lymphocytes # (Manual) Monocytes # (Manual) Eosinophils # (Manual) PT INR APTT D-Dimer Heparin Anti-Xa Level ABG pH POC ABG pCO2 POC ABG pO2 ABG pO2 ABG HCO3 ABG O2 Saturation ABG Base Excess ABG Hemoglobin ABG Oxyhemoglobin ABG Sodium ABG Potassium ABG Chloride ABG Glucose Oxyhemoglobin Carboxyhemoglobin Sodium Potassium Chloride Carbon Dioxide BUN Creatinine Glucose POC Glucose 174 H 214 H 194 H Lactic Acid Calcium Magnesium Ferritin Total Bilirubin Direct Bilirubin AST ALT Alkaline Phosphatase Lactate Dehydrogenase C-Reactive Protein Total Protein Albumin Triglycerides Lipase Arterial Blood Glucose Arterial Blood Ionized Calcium Urine WBC (Auto) Coronavirus (PCR) SARS-CoV-2 IgG Ab Crossmatch 06/12/20 06/13/20 06/13/20 23:49 05:41 12:30 WBC RBC Hgb Hct MCV MCH MCHC RDW Lymph % (Auto) [place] % (Auto) Lymph # (Auto) [place] # (Auto) Baso # (Auto) Seg Neutrophils % Seg Neuts % (Manual) Lymphocytes % (Manual) Nucleated RBC % Seg Neutrophils # Seg Neutrophils # Man Lymphocytes # (Manual) Monocytes # (Manual) Eosinophils # (Manual) PT INR APTT D-Dimer Heparin Anti-Xa Level ABG pH POC ABG pCO2 POC ABG pO2 ABG pO2 ABG HCO3 ABG O2 Saturation ABG Base Excess ABG Hemoglobin ABG Oxyhemoglobin ABG Sodium ABG Potassium ABG Chloride ABG Glucose Oxyhemoglobin Carboxyhemoglobin Sodium Potassium Chloride Carbon Dioxide BUN Creatinine Glucose POC Glucose 160 H 150 H 181 H Lactic Acid Calcium Magnesium Ferritin Total Bilirubin Direct Bilirubin AST ALT Alkaline Phosphatase Lactate Dehydrogenase C-Reactive Protein Total Protein Albumin Triglycerides Lipase Arterial Blood Glucose Arterial Blood Ionized Calcium Urine WBC (Auto) Coronavirus (PCR) SARS-CoV-2 IgG Ab Crossmatch 06/13/20 06/13/20 06/13/20 14:14 17:48 23:27 WBC 12.8 H RBC 2.33 L Hgb 8.0 L Hct 23.3 L MCV 100 H MCH 34 H MCHC RDW 15.7 H Lymph % (Auto) [place] % (Auto) Lymph # (Auto) [place] # (Auto) Baso # (Auto) Seg Neutrophils % Seg Neuts % (Manual) 85.0 H Lymphocytes % (Manual) 10.0 L Nucleated RBC % Seg Neutrophils # Seg Neutrophils # Man 10.9 H Lymphocytes # (Manual) Monocytes # (Manual) Eosinophils # (Manual) PT INR APTT D-Dimer Heparin Anti-Xa Level ABG pH POC ABG pCO2 POC ABG pO2 ABG pO2 ABG HCO3 ABG O2 Saturation ABG Base Excess ABG Hemoglobin ABG Oxyhemoglobin ABG Sodium ABG Potassium ABG Chloride ABG Glucose Oxyhemoglobin Carboxyhemoglobin Sodium Potassium Chloride Carbon Dioxide BUN Creatinine Glucose POC Glucose 173 H 154 H Lactic Acid Calcium Magnesium Ferritin Total Bilirubin Direct Bilirubin AST ALT Alkaline Phosphatase Lactate Dehydrogenase C-Reactive Protein Total Protein Albumin Triglycerides Lipase Arterial Blood Glucose Arterial Blood Ionized Calcium Urine WBC (Auto) Coronavirus (PCR) SARS-CoV-2 IgG Ab Crossmatch 06/14/20 06/14/20 06/14/20 03:58 05:21 07:15 WBC 26.2 H RBC 2.97 L Hgb 9.7 L Hct 29.9 L D MCV 101 H MCH 33 H MCHC RDW 15.3 H Lymph % (Auto) [place] % (Auto) Lymph # (Auto) [place] # (Auto) Baso # (Auto) Seg Neutrophils % Seg Neuts % (Manual) 79.0 H Lymphocytes % (Manual) 5.0 L Nucleated RBC % 3.0 H Seg Neutrophils # Seg Neutrophils # Man 20.7 H Lymphocytes # (Manual) Monocytes # (Manual) 1.3 H Eosinophils # (Manual) PT INR APTT D-Dimer Heparin Anti-Xa Level ABG pH POC ABG pCO2 51.5 H POC ABG pO2 70.0 L ABG pO2 ABG HCO3 ABG O2 Saturation ABG Base Excess ABG Hemoglobin 10.1 L ABG Oxyhemoglobin ABG Sodium 131.5 L ABG Potassium 3.1 L ABG Chloride 93.0 L ABG Glucose 188 H Oxyhemoglobin Carboxyhemoglobin Sodium Potassium Chloride Carbon Dioxide BUN Creatinine Glucose POC Glucose 147 H Lactic Acid Calcium Magnesium Ferritin Total Bilirubin Direct Bilirubin AST ALT Alkaline Phosphatase Lactate Dehydrogenase C-Reactive Protein Total Protein Albumin Triglycerides Lipase Arterial Blood Glucose 188 H Arterial Blood Ionized Calcium Urine WBC (Auto) Coronavirus (PCR) SARS-CoV-2 IgG Ab Crossmatch 06/14/20 06/14/20 06/14/20 07:15 11:30 11:50 WBC RBC Hgb Hct MCV MCH MCHC RDW Lymph % (Auto) [place] % (Auto) Lymph # (Auto) [place] # (Auto) Baso # (Auto) Seg Neutrophils % Seg Neuts % (Manual) Lymphocytes % (Manual) Nucleated RBC % Seg Neutrophils # Seg Neutrophils # Man Lymphocytes # (Manual) Monocytes # (Manual) Eosinophils # (Manual) PT INR APTT D-Dimer Heparin Anti-Xa Level ABG pH POC ABG pCO2 POC ABG pO2 ABG pO2 ABG HCO3 ABG O2 Saturation ABG Base Excess ABG Hemoglobin ABG Oxyhemoglobin ABG Sodium ABG Potassium ABG Chloride ABG Glucose Oxyhemoglobin Carboxyhemoglobin Sodium 135 L Potassium 3.5 L Chloride 90.4 L Carbon Dioxide 38 H BUN Creatinine 0.5 L Glucose 190 H POC Glucose 176 H Lactic Acid Calcium Magnesium Ferritin 1496.0 H Total Bilirubin Direct Bilirubin AST ALT 81 H Alkaline Phosphatase Lactate Dehydrogenase C-Reactive Protein Total Protein Albumin 2.9 L Triglycerides Lipase Arterial Blood Glucose Arterial Blood Ionized Calcium Urine WBC (Auto) Coronavirus (PCR) SARS-CoV-2 IgG Ab Crossmatch 06/14/20 06/15/20 06/15/20 23:31 04:00 05:00 WBC RBC Hgb Hct MCV MCH MCHC RDW Lymph % (Auto) [place] % (Auto) Lymph # (Auto) [place] # (Auto) Baso # (Auto) Seg Neutrophils % Seg Neuts % (Manual) Lymphocytes % (Manual) Nucleated RBC % Seg Neutrophils # Seg Neutrophils # Man Lymphocytes # (Manual) Monocytes # (Manual) Eosinophils # (Manual) PT INR APTT D-Dimer Heparin Anti-Xa Level ABG pH POC ABG pCO2 POC ABG pO2 ABG pO2 ABG HCO3 ABG O2 Saturation ABG Base Excess ABG Hemoglobin ABG Oxyhemoglobin ABG Sodium ABG Potassium ABG Chloride ABG Glucose Oxyhemoglobin Carboxyhemoglobin Sodium 133 L Potassium Chloride 91.1 L Carbon Dioxide 34 H BUN Creatinine 0.4 L Glucose 159 H POC Glucose 200 H Lactic Acid Calcium Magnesium Ferritin Total Bilirubin 2.00 H Direct Bilirubin AST 47 H ALT 77 H Alkaline Phosphatase Lactate Dehydrogenase C-Reactive Protein Total Protein Albumin 2.6 L Triglycerides 152 H Lipase Arterial Blood Glucose Arterial Blood Ionized Calcium Urine WBC (Auto) Coronavirus (PCR) SARS-CoV-2 IgG Ab Crossmatch 06/15/20 06/15/20 06/15/20 05:35 06:27 11:38 WBC RBC Hgb Hct MCV MCH MCHC RDW Lymph % (Auto) [place] % (Auto) Lymph # (Auto) [place] # (Auto) Baso # (Auto) Seg Neutrophils % Seg Neuts % (Manual) Lymphocytes % (Manual) Nucleated RBC % Seg Neutrophils # Seg Neutrophils # Man Lymphocytes # (Manual) Monocytes # (Manual) Eosinophils # (Manual) PT INR APTT D-Dimer Heparin Anti-Xa Level ABG pH POC ABG pCO2 61.0 H POC ABG pO2 67.9 L ABG pO2 ABG HCO3 ABG O2 Saturation ABG Base Excess ABG Hemoglobin 10.4 L ABG Oxyhemoglobin ABG Sodium 132.7 L ABG Potassium 3.3 L ABG Chloride 92.0 L ABG Glucose 158 H Oxyhemoglobin Carboxyhemoglobin Sodium Potassium Chloride Carbon Dioxide BUN Creatinine Glucose POC Glucose 148 H 197 H Lactic Acid Calcium Magnesium Ferritin Total Bilirubin Direct Bilirubin AST ALT Alkaline Phosphatase Lactate Dehydrogenase C-Reactive Protein Total Protein Albumin Triglycerides Lipase Arterial Blood Glucose 158 H Arterial Blood Ionized Calcium Urine WBC (Auto) Coronavirus (PCR) SARS-CoV-2 IgG Ab Crossmatch 06/15/20 06/15/20 06/16/20 17:29 Unknown 00:01 WBC 20.7 H RBC 2.57 L Hgb 8.9 L Hct 25.8 L MCV 101 H MCH 35 H MCHC 35 H RDW 16.0 H Lymph % (Auto) [place] % (Auto) Lymph # (Auto) [place] # (Auto) Baso # (Auto) Seg Neutrophils % Seg Neuts % (Manual) 83.0 H Lymphocytes % (Manual) 8.0 L Nucleated RBC % Seg Neutrophils # Seg Neutrophils # Man 17.2 H Lymphocytes # (Manual) Monocytes # (Manual) 1.2 H Eosinophils # (Manual) PT INR APTT D-Dimer Heparin Anti-Xa Level ABG pH POC ABG pCO2 POC ABG pO2 ABG pO2 ABG HCO3 ABG O2 Saturation ABG Base Excess ABG Hemoglobin ABG Oxyhemoglobin ABG Sodium ABG Potassium ABG Chloride ABG Glucose Oxyhemoglobin Carboxyhemoglobin Sodium Potassium Chloride Carbon Dioxide BUN Creatinine Glucose POC Glucose 231 H 257 H Lactic Acid Calcium Magnesium Ferritin Total Bilirubin Direct Bilirubin AST ALT Alkaline Phosphatase Lactate Dehydrogenase C-Reactive Protein Total Protein Albumin Triglycerides Lipase Arterial Blood Glucose Arterial Blood Ionized Calcium Urine WBC (Auto) Coronavirus (PCR) SARS-CoV-2 IgG Ab Crossmatch 06/16/20 06/16/20 06/16/20 04:00 04:00 05:22 WBC 13.8 H RBC 2.03 L Hgb 7.6 L Hct 20.7 L MCV 102 H MCH 37 H MCHC 37 H RDW 16.2 H Lymph % (Auto) 4.4 L [place] % (Auto) Lymph # (Auto) 0.6 L [place] # (Auto) Baso # (Auto) Seg Neutrophils % Seg Neuts % (Manual) Lymphocytes % (Manual) Nucleated RBC % Seg Neutrophils # 12.7 H Seg Neutrophils # Man Lymphocytes # (Manual) Monocytes # (Manual) Eosinophils # (Manual) PT INR APTT D-Dimer Heparin Anti-Xa Level ABG pH POC ABG pCO2 POC ABG pO2 ABG pO2 ABG HCO3 ABG O2 Saturation ABG Base Excess ABG Hemoglobin ABG Oxyhemoglobin ABG Sodium ABG Potassium ABG Chloride ABG Glucose Oxyhemoglobin Carboxyhemoglobin Sodium 130 L Potassium Chloride 88.9 L Carbon Dioxide 36 H BUN Creatinine 0.3 L Glucose 276 H POC Glucose 250 H Lactic Acid Calcium Magnesium Ferritin Total Bilirubin Direct Bilirubin AST ALT Alkaline Phosphatase Lactate Dehydrogenase C-Reactive Protein Total Protein Albumin Triglycerides Lipase Arterial Blood Glucose Arterial Blood Ionized Calcium Urine WBC (Auto) Coronavirus (PCR) SARS-CoV-2 IgG Ab Crossmatch 06/16/20 06/16/20 06/17/20 12:44 18:18 00:39 WBC RBC Hgb Hct MCV MCH MCHC RDW Lymph % (Auto) [place] % (Auto) Lymph # (Auto) [place] # (Auto) Baso # (Auto) Seg Neutrophils % Seg Neuts % (Manual) Lymphocytes % (Manual) Nucleated RBC % Seg Neutrophils # Seg Neutrophils # Man Lymphocytes # (Manual) Monocytes # (Manual) Eosinophils # (Manual) PT INR APTT D-Dimer Heparin Anti-Xa Level ABG pH POC ABG pCO2 POC ABG pO2 ABG pO2 ABG HCO3 ABG O2 Saturation ABG Base Excess ABG Hemoglobin ABG Oxyhemoglobin ABG Sodium ABG Potassium ABG Chloride ABG Glucose Oxyhemoglobin Carboxyhemoglobin Sodium Potassium Chloride Carbon Dioxide BUN Creatinine Glucose POC Glucose 279 H 239 H 247 H Lactic Acid Calcium Magnesium Ferritin Total Bilirubin Direct Bilirubin AST ALT Alkaline Phosphatase Lactate Dehydrogenase C-Reactive Protein Total Protein Albumin Triglycerides Lipase Arterial Blood Glucose Arterial Blood Ionized Calcium Urine WBC (Auto) Coronavirus (PCR) SARS-CoV-2 IgG Ab Crossmatch 06/17/20 06/17/20 06/17/20 03:40 04:08 10:54 WBC RBC Hgb Hct MCV MCH MCHC RDW Lymph % (Auto) [place] % (Auto) Lymph # (Auto) [place] # (Auto) Baso # (Auto) Seg Neutrophils % Seg Neuts % (Manual) Lymphocytes % (Manual) Nucleated RBC % Seg Neutrophils # Seg Neutrophils # Man Lymphocytes # (Manual) Monocytes # (Manual) Eosinophils # (Manual) PT INR APTT D-Dimer Heparin Anti-Xa Level ABG pH POC ABG pCO2 65.7 H POC ABG pO2 ABG pO2 ABG HCO3 ABG O2 Saturation ABG Base Excess ABG Hemoglobin 11.9 L ABG Oxyhemoglobin ABG Sodium ABG Potassium ABG Chloride 93.0 L ABG Glucose 244 H Oxyhemoglobin Carboxyhemoglobin Sodium Potassium Chloride Carbon Dioxide BUN Creatinine Glucose POC Glucose 221 H 248 H Lactic Acid Calcium Magnesium Ferritin Total Bilirubin Direct Bilirubin AST ALT Alkaline Phosphatase Lactate Dehydrogenase C-Reactive Protein Total Protein Albumin Triglycerides Lipase Arterial Blood Glucose 244 H Arterial Blood Ionized Calcium Urine WBC (Auto) Coronavirus (PCR) SARS-CoV-2 IgG Ab Crossmatch 06/17/20 06/17/20 06/17/20 17:47 23:11 23:29 WBC RBC Hgb Hct MCV MCH MCHC RDW Lymph % (Auto) [place] % (Auto) Lymph # (Auto) [place] # (Auto) Baso # (Auto) Seg Neutrophils % Seg Neuts % (Manual) Lymphocytes % (Manual) Nucleated RBC % Seg Neutrophils # Seg Neutrophils # Man Lymphocytes # (Manual) Monocytes # (Manual) Eosinophils # (Manual) PT INR APTT D-Dimer Heparin Anti-Xa Level ABG pH POC ABG pCO2 85.2 H POC ABG pO2 48.4 L ABG pO2 ABG HCO3 ABG O2 Saturation ABG Base Excess ABG Hemoglobin 8.0 L ABG Oxyhemoglobin ABG Sodium ABG Potassium ABG Chloride 95.0 L ABG Glucose 292 H Oxyhemoglobin Carboxyhemoglobin Sodium Potassium Chloride Carbon Dioxide BUN Creatinine Glucose POC Glucose 245 H 252 H Lactic Acid Calcium Magnesium Ferritin Total Bilirubin Direct Bilirubin AST ALT Alkaline Phosphatase Lactate Dehydrogenase C-Reactive Protein Total Protein Albumin Triglycerides Lipase Arterial Blood Glucose 292 H Arterial Blood Ionized Calcium Urine WBC (Auto) Coronavirus (PCR) SARS-CoV-2 IgG Ab Crossmatch 06/18/20 06/18/20 06/18/20 03:14 05:34 11:47 WBC RBC Hgb Hct MCV MCH MCHC RDW Lymph % (Auto) [place] % (Auto) Lymph # (Auto) [place] # (Auto) Baso # (Auto) Seg Neutrophils % Seg Neuts % (Manual) Lymphocytes % (Manual) Nucleated RBC % Seg Neutrophils # Seg Neutrophils # Man Lymphocytes # (Manual) Monocytes # (Manual) Eosinophils # (Manual) PT INR APTT D-Dimer Heparin Anti-Xa Level ABG pH POC ABG pCO2 65.4 H POC ABG pO2 160.7 H ABG pO2 ABG HCO3 ABG O2 Saturation ABG Base Excess ABG Hemoglobin 7.8 L ABG Oxyhemoglobin ABG Sodium ABG Potassium ABG Chloride 95.0 L ABG Glucose 251 H Oxyhemoglobin Carboxyhemoglobin Sodium Potassium Chloride Carbon Dioxide BUN Creatinine Glucose POC Glucose 243 H 263 H Lactic Acid Calcium Magnesium Ferritin Total Bilirubin Direct Bilirubin AST ALT Alkaline Phosphatase Lactate Dehydrogenase C-Reactive Protein Total Protein Albumin Triglycerides Lipase Arterial Blood Glucose 251 H Arterial Blood Ionized Calcium Urine WBC (Auto) Coronavirus (PCR) SARS-CoV-2 IgG Ab Crossmatch 06/18/20 06/18/20 06/19/20 17:31 23:33 04:32 WBC RBC Hgb Hct MCV MCH MCHC RDW Lymph % (Auto) [place] % (Auto) Lymph # (Auto) [place] # (Auto) Baso # (Auto) Seg Neutrophils % Seg Neuts % (Manual) Lymphocytes % (Manual) Nucleated RBC % Seg Neutrophils # Seg Neutrophils # Man Lymphocytes # (Manual) Monocytes # (Manual) Eosinophils # (Manual) PT INR APTT D-Dimer Heparin Anti-Xa Level ABG pH POC ABG pCO2 83.1 H POC ABG pO2 65.8 L ABG pO2 ABG HCO3 ABG O2 Saturation ABG Base Excess ABG Hemoglobin 8.9 L ABG Oxyhemoglobin ABG Sodium ABG Potassium ABG Chloride 96.0 L ABG Glucose 297 H Oxyhemoglobin Carboxyhemoglobin Sodium Potassium Chloride Carbon Dioxide BUN Creatinine Glucose POC Glucose 286 H 238 H Lactic Acid Calcium Magnesium Ferritin Total Bilirubin Direct Bilirubin AST ALT Alkaline Phosphatase Lactate Dehydrogenase C-Reactive Protein Total Protein Albumin Triglycerides Lipase Arterial Blood Glucose 297 H Arterial Blood Ionized Calcium Urine WBC (Auto) Coronavirus (PCR) SARS-CoV-2 IgG Ab Crossmatch 06/19/20 06/19/20 06/19/20 05:55 11:20 17:12 WBC RBC Hgb Hct MCV MCH MCHC RDW Lymph % (Auto) [place] % (Auto) Lymph # (Auto) [place] # (Auto) Baso # (Auto) Seg Neutrophils % Seg Neuts % (Manual) Lymphocytes % (Manual) Nucleated RBC % Seg Neutrophils # Seg Neutrophils # Man Lymphocytes # (Manual) Monocytes # (Manual) Eosinophils # (Manual) PT INR APTT D-Dimer Heparin Anti-Xa Level ABG pH POC ABG pCO2 POC ABG pO2 ABG pO2 ABG HCO3 ABG O2 Saturation ABG Base Excess ABG Hemoglobin ABG Oxyhemoglobin ABG Sodium ABG Potassium ABG Chloride ABG Glucose Oxyhemoglobin Carboxyhemoglobin Sodium Potassium Chloride Carbon Dioxide BUN Creatinine Glucose POC Glucose 274 H 282 H 298 H Lactic Acid Calcium Magnesium Ferritin Total Bilirubin Direct Bilirubin AST ALT Alkaline Phosphatase Lactate Dehydrogenase C-Reactive Protein Total Protein Albumin Triglycerides Lipase Arterial Blood Glucose Arterial Blood Ionized Calcium Urine WBC (Auto) Coronavirus (PCR) SARS-CoV-2 IgG Ab Crossmatch 06/19/20 06/20/20 06/20/20 23:08 03:33 06:01 WBC RBC Hgb Hct MCV MCH MCHC RDW Lymph % (Auto) [place] % (Auto) Lymph # (Auto) [place] # (Auto) Baso # (Auto) Seg Neutrophils % Seg Neuts % (Manual) Lymphocytes % (Manual) Nucleated RBC % Seg Neutrophils # Seg Neutrophils # Man Lymphocytes # (Manual) Monocytes # (Manual) Eosinophils # (Manual) PT INR APTT D-Dimer Heparin Anti-Xa Level ABG pH POC ABG pCO2 POC ABG pO2 ABG pO2 69.9 L ABG HCO3 50.8 H ABG O2 Saturation ABG Base Excess 24.2 H ABG Hemoglobin 5.8 L ABG Oxyhemoglobin ABG Sodium ABG Potassium ABG Chloride ABG Glucose Oxyhemoglobin Carboxyhemoglobin Sodium Potassium Chloride Carbon Dioxide BUN Creatinine Glucose POC Glucose 293 H 182 H Lactic Acid Calcium Magnesium Ferritin Total Bilirubin Direct Bilirubin AST ALT Alkaline Phosphatase Lactate Dehydrogenase C-Reactive Protein Total Protein Albumin Triglycerides Lipase Arterial Blood Glucose Arterial Blood Ionized Calcium Urine WBC (Auto) Coronavirus (PCR) SARS-CoV-2 IgG Ab Crossmatch 06/20/20 06/20/20 06/20/20 11:47 17:46 23:37 WBC RBC Hgb Hct MCV MCH MCHC RDW Lymph % (Auto) [place] % (Auto) Lymph # (Auto) [place] # (Auto) Baso # (Auto) Seg Neutrophils % Seg Neuts % (Manual) Lymphocytes % (Manual) Nucleated RBC % Seg Neutrophils # Seg Neutrophils # Man Lymphocytes # (Manual) Monocytes # (Manual) Eosinophils # (Manual) PT INR APTT D-Dimer Heparin Anti-Xa Level ABG pH POC ABG pCO2 POC ABG pO2 ABG pO2 ABG HCO3 ABG O2 Saturation ABG Base Excess ABG Hemoglobin ABG Oxyhemoglobin ABG Sodium ABG Potassium ABG Chloride ABG Glucose Oxyhemoglobin Carboxyhemoglobin Sodium Potassium Chloride Carbon Dioxide BUN Creatinine Glucose POC Glucose 170 H 215 H 256 H Lactic Acid Calcium Magnesium Ferritin Total Bilirubin Direct Bilirubin AST ALT Alkaline Phosphatase Lactate Dehydrogenase C-Reactive Protein Total Protein Albumin Triglycerides Lipase Arterial Blood Glucose Arterial Blood Ionized Calcium Urine WBC (Auto) Coronavirus (PCR) SARS-CoV-2 IgG Ab Crossmatch 06/21/20 06/21/20 06/21/20 04:00 05:14 05:51 WBC RBC Hgb Hct MCV MCH MCHC RDW Lymph % (Auto) [place] % (Auto) Lymph # (Auto) [place] # (Auto) Baso # (Auto) Seg Neutrophils % Seg Neuts % (Manual) Lymphocytes % (Manual) Nucleated RBC % Seg Neutrophils # Seg Neutrophils # Man Lymphocytes # (Manual) Monocytes # (Manual) Eosinophils # (Manual) PT INR APTT D-Dimer Heparin Anti-Xa Level ABG pH 7.474 H POC ABG pCO2 POC ABG pO2 ABG pO2 ABG HCO3 52.1 H ABG O2 Saturation ABG Base Excess 23.3 H ABG Hemoglobin 5.3 L ABG Oxyhemoglobin ABG Sodium ABG Potassium ABG Chloride ABG Glucose Oxyhemoglobin 93.8 L Carboxyhemoglobin Sodium Potassium Chloride Carbon Dioxide BUN Creatinine Glucose POC Glucose 122 H 129 H Lactic Acid Calcium Magnesium Ferritin Total Bilirubin Direct Bilirubin AST ALT Alkaline Phosphatase Lactate Dehydrogenase C-Reactive Protein Total Protein Albumin Triglycerides Lipase Arterial Blood Glucose Arterial Blood Ionized Calcium Urine WBC (Auto) Coronavirus (PCR) SARS-CoV-2 IgG Ab Crossmatch 06/21/20 06/21/20 06/21/20 11:00 11:00 11:42 WBC 14.2 H RBC 1.85 L Hgb 6.2 L Hct 19.5 L* MCV 105 H MCH 34 H MCHC RDW 18.0 H Lymph % (Auto) [place] % (Auto) Lymph # (Auto) [place] # (Auto) Baso # (Auto) Seg Neutrophils % Seg Neuts % (Manual) Lymphocytes % (Manual) Nucleated RBC % Seg Neutrophils # Seg Neutrophils # Man Lymphocytes # (Manual) Monocytes # (Manual) Eosinophils # (Manual) PT INR APTT D-Dimer Heparin Anti-Xa Level ABG pH POC ABG pCO2 POC ABG pO2 ABG pO2 ABG HCO3 ABG O2 Saturation ABG Base Excess ABG Hemoglobin ABG Oxyhemoglobin ABG Sodium ABG Potassium ABG Chloride ABG Glucose Oxyhemoglobin Carboxyhemoglobin Sodium 147 H Potassium Chloride Carbon Dioxide 51 H* BUN 31 H Creatinine 0.5 L Glucose 224 H POC Glucose 217 H Lactic Acid Calcium Magnesium Ferritin Total Bilirubin Direct Bilirubin AST ALT Alkaline Phosphatase Lactate Dehydrogenase C-Reactive Protein Total Protein Albumin Triglycerides Lipase Arterial Blood Glucose Arterial Blood Ionized Calcium Urine WBC (Auto) Coronavirus (PCR) SARS-CoV-2 IgG Ab Crossmatch 06/21/20 06/21/20 06/21/20 14:18 14:30 18:36 WBC RBC Hgb Hct MCV MCH MCHC RDW Lymph % (Auto) [place] % (Auto) Lymph # (Auto) [place] # (Auto) Baso # (Auto) Seg Neutrophils % Seg Neuts % (Manual) Lymphocytes % (Manual) Nucleated RBC % Seg Neutrophils # Seg Neutrophils # Man Lymphocytes # (Manual) Monocytes # (Manual) Eosinophils # (Manual) PT 15.1 H INR 1.19 H APTT D-Dimer Heparin Anti-Xa Level ABG pH POC ABG pCO2 POC ABG pO2 ABG pO2 ABG HCO3 ABG O2 Saturation ABG Base Excess ABG Hemoglobin ABG Oxyhemoglobin ABG Sodium ABG Potassium ABG Chloride ABG Glucose Oxyhemoglobin Carboxyhemoglobin Sodium Potassium Chloride Carbon Dioxide BUN Creatinine Glucose POC Glucose 185 H Lactic Acid Calcium Magnesium Ferritin Total Bilirubin Direct Bilirubin AST ALT Alkaline Phosphatase Lactate Dehydrogenase C-Reactive Protein Total Protein Albumin Triglycerides Lipase Arterial Blood Glucose Arterial Blood Ionized Calcium Urine WBC (Auto) Coronavirus (PCR) SARS-CoV-2 IgG Ab Crossmatch See Detail 06/21/20 06/22/20 06/22/20 21:14 03:50 04:00 WBC RBC Hgb Hct MCV MCH MCHC RDW Lymph % (Auto) [place] % (Auto) Lymph # (Auto) [place] # (Auto) Baso # (Auto) Seg Neutrophils % Seg Neuts % (Manual) Lymphocytes % (Manual) Nucleated RBC % Seg Neutrophils # Seg Neutrophils # Man Lymphocytes # (Manual) Monocytes # (Manual) Eosinophils # (Manual) PT INR APTT D-Dimer Heparin Anti-Xa Level ABG pH 7.451 H POC ABG pCO2 POC ABG pO2 ABG pO2 ABG HCO3 47.5 H ABG O2 Saturation ABG Base Excess 22.0 H ABG Hemoglobin < 5.1 L ABG Oxyhemoglobin ABG Sodium ABG Potassium ABG Chloride ABG Glucose Oxyhemoglobin 94.1 L Carboxyhemoglobin Sodium 149 H Potassium 3.5 L Chloride Carbon Dioxide 42 H* D BUN 34 H Creatinine 0.4 L Glucose 219 H POC Glucose 250 H Lactic Acid Calcium Magnesium Ferritin Total Bilirubin Direct Bilirubin AST ALT Alkaline Phosphatase Lactate Dehydrogenase C-Reactive Protein Total Protein Albumin Triglycerides Lipase Arterial Blood Glucose Arterial Blood Ionized Calcium Urine WBC (Auto) Coronavirus (PCR) SARS-CoV-2 IgG Ab Crossmatch 06/22/20 06/22/20 06/22/20 12:16 14:29 17:56 WBC RBC Hgb Hct MCV MCH MCHC RDW Lymph % (Auto) [place] % (Auto) Lymph # (Auto) [place] # (Auto) Baso # (Auto) Seg Neutrophils % Seg Neuts % (Manual) Lymphocytes % (Manual) Nucleated RBC % Seg Neutrophils # Seg Neutrophils # Man Lymphocytes # (Manual) Monocytes # (Manual) Eosinophils # (Manual) PT 11.8 L INR APTT 23.5 L D-Dimer Heparin Anti-Xa Level ABG pH POC ABG pCO2 POC ABG pO2 ABG pO2 ABG HCO3 ABG O2 Saturation ABG Base Excess ABG Hemoglobin ABG Oxyhemoglobin ABG Sodium ABG Potassium ABG Chloride ABG Glucose Oxyhemoglobin Carboxyhemoglobin Sodium Potassium Chloride Carbon Dioxide BUN Creatinine Glucose POC Glucose 215 H 215 H Lactic Acid Calcium Magnesium Ferritin Total Bilirubin Direct Bilirubin AST ALT Alkaline Phosphatase Lactate Dehydrogenase C-Reactive Protein Total Protein Albumin Triglycerides Lipase Arterial Blood Glucose Arterial Blood Ionized Calcium Urine WBC (Auto) Coronavirus (PCR) SARS-CoV-2 IgG Ab Crossmatch 06/22/20 06/22/20 06/22/20 23:36 23:45 Unknown WBC 14.1 H RBC 2.70 L Hgb 8.9 L 8.9 L Hct 26.9 L 27.2 L D MCV 101 H MCH 33 H MCHC RDW 17.7 H Lymph % (Auto) [place] % (Auto) Lymph # (Auto) [place] # (Auto) Baso # (Auto) Seg Neutrophils % Seg Neuts % (Manual) 92.0 H Lymphocytes % (Manual) 5.0 L Nucleated RBC % Seg Neutrophils # Seg Neutrophils # Man 13.0 H Lymphocytes # (Manual) 0.7 L Monocytes # (Manual) Eosinophils # (Manual) PT INR APTT D-Dimer Heparin Anti-Xa Level ABG pH POC ABG pCO2 POC ABG pO2 ABG pO2 ABG HCO3 ABG O2 Saturation ABG Base Excess ABG Hemoglobin ABG Oxyhemoglobin ABG Sodium ABG Potassium ABG Chloride ABG Glucose Oxyhemoglobin Carboxyhemoglobin Sodium Potassium Chloride Carbon Dioxide BUN Creatinine Glucose POC Glucose 208 H Lactic Acid Calcium Magnesium Ferritin Total Bilirubin Direct Bilirubin AST ALT Alkaline Phosphatase Lactate Dehydrogenase C-Reactive Protein Total Protein Albumin Triglycerides Lipase Arterial Blood Glucose Arterial Blood Ionized Calcium Urine WBC (Auto) Coronavirus (PCR) SARS-CoV-2 IgG Ab Crossmatch 06/23/20 06/23/20 06/23/20 05:17 05:19 06:50 WBC RBC Hgb Hct MCV MCH MCHC RDW Lymph % (Auto) [place] % (Auto) Lymph # (Auto) [place] # (Auto) Baso # (Auto) Seg Neutrophils % Seg Neuts % (Manual) Lymphocytes % (Manual) Nucleated RBC % Seg Neutrophils # Seg Neutrophils # Man Lymphocytes # (Manual) Monocytes # (Manual) Eosinophils # (Manual) PT INR APTT D-Dimer Heparin Anti-Xa Level ABG pH POC ABG pCO2 69.7 H POC ABG pO2 63.3 L ABG pO2 ABG HCO3 ABG O2 Saturation ABG Base Excess ABG Hemoglobin 10.1 L ABG Oxyhemoglobin ABG Sodium ABG Potassium 3.3 L ABG Chloride ABG Glucose 226 H Oxyhemoglobin Carboxyhemoglobin Sodium Potassium 3.0 L Chloride Carbon Dioxide 41 H* BUN 26 H Creatinine 0.4 L Glucose 209 H POC Glucose 200 H Lactic Acid Calcium Magnesium Ferritin Total Bilirubin Direct Bilirubin AST ALT Alkaline Phosphatase Lactate Dehydrogenase C-Reactive Protein Total Protein Albumin 2.9 L Triglycerides Lipase Arterial Blood Glucose 226 H Arterial Blood Ionized Calcium Urine WBC (Auto) Coronavirus (PCR) SARS-CoV-2 IgG Ab Crossmatch 06/23/20 06/23/20 06/23/20 09:41 12:04 18:16 WBC RBC Hgb 9.1 L Hct 28.0 L MCV MCH MCHC RDW Lymph % (Auto) [place] % (Auto) Lymph # (Auto) [place] # (Auto) Baso # (Auto) Seg Neutrophils % Seg Neuts % (Manual) Lymphocytes % (Manual) Nucleated RBC % Seg Neutrophils # Seg Neutrophils # Man Lymphocytes # (Manual) Monocytes # (Manual) Eosinophils # (Manual) PT INR APTT D-Dimer Heparin Anti-Xa Level ABG pH POC ABG pCO2 POC ABG pO2 ABG pO2 ABG HCO3 ABG O2 Saturation ABG Base Excess ABG Hemoglobin ABG Oxyhemoglobin ABG Sodium ABG Potassium ABG Chloride ABG Glucose Oxyhemoglobin Carboxyhemoglobin Sodium Potassium Chloride Carbon Dioxide BUN Creatinine Glucose POC Glucose 146 H 162 H Lactic Acid Calcium Magnesium Ferritin Total Bilirubin Direct Bilirubin AST ALT Alkaline Phosphatase Lactate Dehydrogenase C-Reactive Protein Total Protein Albumin Triglycerides Lipase Arterial Blood Glucose Arterial Blood Ionized Calcium Urine WBC (Auto) Coronavirus (PCR) SARS-CoV-2 IgG Ab Crossmatch 06/23/20 06/23/20 06/24/20 23:24 23:41 02:39 WBC RBC Hgb 8.2 L 8.8 L Hct 24.9 L 26.8 L MCV MCH MCHC RDW Lymph % (Auto) [place] % (Auto) Lymph # (Auto) [place] # (Auto) Baso # (Auto) Seg Neutrophils % Seg Neuts % (Manual) Lymphocytes % (Manual) Nucleated RBC % Seg Neutrophils # Seg Neutrophils # Man Lymphocytes # (Manual) Monocytes # (Manual) Eosinophils # (Manual) PT INR APTT D-Dimer Heparin Anti-Xa Level ABG pH POC ABG pCO2 POC ABG pO2 ABG pO2 ABG HCO3 ABG O2 Saturation ABG Base Excess ABG Hemoglobin ABG Oxyhemoglobin ABG Sodium ABG Potassium ABG Chloride ABG Glucose Oxyhemoglobin Carboxyhemoglobin Sodium Potassium Chloride Carbon Dioxide BUN Creatinine Glucose POC Glucose 248 H Lactic Acid Calcium Magnesium Ferritin Total Bilirubin Direct Bilirubin AST ALT Alkaline Phosphatase Lactate Dehydrogenase C-Reactive Protein Total Protein Albumin Triglycerides Lipase Arterial Blood Glucose Arterial Blood Ionized Calcium Urine WBC (Auto) Coronavirus (PCR) SARS-CoV-2 IgG Ab Crossmatch 06/24/20 06/24/20 06/24/20 02:39 02:45 05:31 WBC RBC Hgb Hct MCV MCH MCHC RDW Lymph % (Auto) [place] % (Auto) Lymph # (Auto) [place] # (Auto) Baso # (Auto) Seg Neutrophils % Seg Neuts % (Manual) Lymphocytes % (Manual) Nucleated RBC % Seg Neutrophils # Seg Neutrophils # Man Lymphocytes # (Manual) Monocytes # (Manual) Eosinophils # (Manual) PT INR APTT D-Dimer Heparin Anti-Xa Level ABG pH POC ABG pCO2 66.9 H POC ABG pO2 109.7 H ABG pO2 ABG HCO3 ABG O2 Saturation ABG Base Excess ABG Hemoglobin 9.7 L ABG Oxyhemoglobin ABG Sodium 135.0 L ABG Potassium ABG Chloride 97.0 L ABG Glucose 277 H Oxyhemoglobin Carboxyhemoglobin Sodium 136 L Potassium Chloride 95.0 L Carbon Dioxide 34 H D BUN 24 H Creatinine 0.3 L Glucose 260 H POC Glucose 164 H Lactic Acid Calcium Magnesium Ferritin Total Bilirubin Direct Bilirubin AST ALT Alkaline Phosphatase Lactate Dehydrogenase C-Reactive Protein Total Protein 5.2 L Albumin 2.6 L Triglycerides Lipase Arterial Blood Glucose 277 H Arterial Blood Ionized Calcium Urine WBC (Auto) Coronavirus (PCR) SARS-CoV-2 IgG Ab Crossmatch 06/24/20 06/24/20 06/24/20 10:00 11:49 17:39 WBC RBC Hgb 8.9 L Hct 26.5 L MCV MCH MCHC RDW Lymph % (Auto) [place] % (Auto) Lymph # (Auto) [place] # (Auto) Baso # (Auto) Seg Neutrophils % Seg Neuts % (Manual) Lymphocytes % (Manual) Nucleated RBC % Seg Neutrophils # Seg Neutrophils # Man Lymphocytes # (Manual) Monocytes # (Manual) Eosinophils # (Manual) PT INR APTT D-Dimer Heparin Anti-Xa Level ABG pH POC ABG pCO2 POC ABG pO2 ABG pO2 ABG HCO3 ABG O2 Saturation ABG Base Excess ABG Hemoglobin ABG Oxyhemoglobin ABG Sodium ABG Potassium ABG Chloride ABG Glucose Oxyhemoglobin Carboxyhemoglobin Sodium Potassium Chloride Carbon Dioxide BUN Creatinine Glucose POC Glucose 198 H 223 H Lactic Acid Calcium Magnesium Ferritin Total Bilirubin Direct Bilirubin AST ALT Alkaline Phosphatase Lactate Dehydrogenase C-Reactive Protein Total Protein Albumin Triglycerides Lipase Arterial Blood Glucose Arterial Blood Ionized Calcium Urine WBC (Auto) Coronavirus (PCR) SARS-CoV-2 IgG Ab Crossmatch 06/24/20 06/25/20 06/25/20 23:56 02:16 04:08 WBC RBC Hgb Hct MCV MCH MCHC RDW Lymph % (Auto) [place] % (Auto) Lymph # (Auto) [place] # (Auto) Baso # (Auto) Seg Neutrophils % Seg Neuts % (Manual) Lymphocytes % (Manual) Nucleated RBC % Seg Neutrophils # Seg Neutrophils # Man Lymphocytes # (Manual) Monocytes # (Manual) Eosinophils # (Manual) PT INR APTT D-Dimer Heparin Anti-Xa Level ABG pH 7.454 H POC ABG pCO2 56.9 H POC ABG pO2 61.0 L ABG pO2 ABG HCO3 ABG O2 Saturation ABG Base Excess ABG Hemoglobin ABG Oxyhemoglobin ABG Sodium 134.3 L ABG Potassium ABG Chloride 92.0 L ABG Glucose 246 H Oxyhemoglobin Carboxyhemoglobin Sodium 134 L Potassium Chloride 89.7 L Carbon Dioxide 36 H BUN Creatinine 0.3 L Glucose 254 H POC Glucose 225 H Lactic Acid Calcium Magnesium Ferritin Total Bilirubin Direct Bilirubin AST ALT Alkaline Phosphatase Lactate Dehydrogenase C-Reactive Protein Total Protein Albumin 2.9 L Triglycerides Lipase Arterial Blood Glucose 246 H Arterial Blood Ionized Calcium Urine WBC (Auto) Coronavirus (PCR) SARS-CoV-2 IgG Ab Crossmatch 06/25/20 06/25/20 06/25/20 05:44 11:35 17:33 WBC RBC Hgb Hct MCV MCH MCHC RDW Lymph % (Auto) [place] % (Auto) Lymph # (Auto) [place] # (Auto) Baso # (Auto) Seg Neutrophils % Seg Neuts % (Manual) Lymphocytes % (Manual) Nucleated RBC % Seg Neutrophils # Seg Neutrophils # Man Lymphocytes # (Manual) Monocytes # (Manual) Eosinophils # (Manual) PT INR APTT D-Dimer Heparin Anti-Xa Level ABG pH POC ABG pCO2 POC ABG pO2 ABG pO2 ABG HCO3 ABG O2 Saturation ABG Base Excess ABG Hemoglobin ABG Oxyhemoglobin ABG Sodium ABG Potassium ABG Chloride ABG Glucose Oxyhemoglobin Carboxyhemoglobin Sodium Potassium Chloride Carbon Dioxide BUN Creatinine Glucose POC Glucose 170 H 175 H 229 H Lactic Acid Calcium Magnesium Ferritin Total Bilirubin Direct Bilirubin AST ALT Alkaline Phosphatase Lactate Dehydrogenase C-Reactive Protein Total Protein Albumin Triglycerides Lipase Arterial Blood Glucose Arterial Blood Ionized Calcium Urine WBC (Auto) Coronavirus (PCR) SARS-CoV-2 IgG Ab Crossmatch 06/25/20 06/26/20 06/26/20 23:55 02:17 02:17 WBC RBC Hgb 10.0 L Hct 30.4 L MCV MCH MCHC RDW Lymph % (Auto) [place] % (Auto) Lymph # (Auto) [place] # (Auto) Baso # (Auto) Seg Neutrophils % Seg Neuts % (Manual) Lymphocytes % (Manual) Nucleated RBC % Seg Neutrophils # Seg Neutrophils # Man Lymphocytes # (Manual) Monocytes # (Manual) Eosinophils # (Manual) PT INR APTT D-Dimer Heparin Anti-Xa Level ABG pH POC ABG pCO2 POC ABG pO2 ABG pO2 ABG HCO3 ABG O2 Saturation ABG Base Excess ABG Hemoglobin ABG Oxyhemoglobin ABG Sodium ABG Potassium ABG Chloride ABG Glucose Oxyhemoglobin Carboxyhemoglobin Sodium 136 L Potassium Chloride 90.1 L Carbon Dioxide 39 H BUN Creatinine 0.2 L Glucose 232 H POC Glucose 192 H Lactic Acid Calcium Magnesium Ferritin Total Bilirubin Direct Bilirubin AST ALT Alkaline Phosphatase Lactate Dehydrogenase C-Reactive Protein Total Protein 6.1 L Albumin 2.9 L Triglycerides Lipase Arterial Blood Glucose Arterial Blood Ionized Calcium Urine WBC (Auto) Coronavirus (PCR) SARS-CoV-2 IgG Ab Crossmatch 06/26/20 06/26/20 06/26/20 04:15 04:49 05:28 WBC RBC Hgb Hct MCV MCH MCHC RDW Lymph % (Auto) [place] % (Auto) Lymph # (Auto) [place] # (Auto) Baso # (Auto) Seg Neutrophils % Seg Neuts % (Manual) Lymphocytes % (Manual) Nucleated RBC % Seg Neutrophils # Seg Neutrophils # Man Lymphocytes # (Manual) Monocytes # (Manual) Eosinophils # (Manual) PT INR APTT D-Dimer Heparin Anti-Xa Level ABG pH 7.453 H POC ABG pCO2 59.6 H POC ABG pO2 ABG pO2 ABG HCO3 ABG O2 Saturation ABG Base Excess ABG Hemoglobin 10.0 L ABG Oxyhemoglobin ABG Sodium 134.2 L ABG Potassium 3.3 L ABG Chloride 92.0 L ABG Glucose 305 H Oxyhemoglobin Carboxyhemoglobin Sodium Potassium Chloride Carbon Dioxide BUN Creatinine Glucose POC Glucose 234 H Lactic Acid Calcium Magnesium Ferritin Total Bilirubin Direct Bilirubin AST ALT Alkaline Phosphatase Lactate Dehydrogenase C-Reactive Protein Total Protein Albumin Triglycerides 203 H Lipase Arterial Blood Glucose 305 H Arterial Blood Ionized Calcium Urine WBC (Auto) Coronavirus (PCR) SARS-CoV-2 IgG Ab Crossmatch 06/26/20 06/26/20 06/26/20 11:58 17:58 21:32 WBC RBC Hgb Hct MCV MCH MCHC RDW Lymph % (Auto) [place] % (Auto) Lymph # (Auto) [place] # (Auto) Baso # (Auto) Seg Neutrophils % Seg Neuts % (Manual) Lymphocytes % (Manual) Nucleated RBC % Seg Neutrophils # Seg Neutrophils # Man Lymphocytes # (Manual) Monocytes # (Manual) Eosinophils # (Manual) PT INR APTT D-Dimer Heparin Anti-Xa Level ABG pH POC ABG pCO2 POC ABG pO2 ABG pO2 ABG HCO3 ABG O2 Saturation ABG Base Excess ABG Hemoglobin ABG Oxyhemoglobin ABG Sodium ABG Potassium ABG Chloride ABG Glucose Oxyhemoglobin Carboxyhemoglobin Sodium Potassium Chloride Carbon Dioxide BUN Creatinine Glucose POC Glucose 198 H 193 H 191 H Lactic Acid Calcium Magnesium Ferritin Total Bilirubin Direct Bilirubin AST ALT Alkaline Phosphatase Lactate Dehydrogenase C-Reactive Protein Total Protein Albumin Triglycerides Lipase Arterial Blood Glucose Arterial Blood Ionized Calcium Urine WBC (Auto) Coronavirus (PCR) SARS-CoV-2 IgG Ab Crossmatch 06/26/20 06/27/20 06/27/20 23:40 04:35 05:32 WBC RBC Hgb Hct MCV MCH MCHC RDW Lymph % (Auto) [place] % (Auto) Lymph # (Auto) [place] # (Auto) Baso # (Auto) Seg Neutrophils % Seg Neuts % (Manual) Lymphocytes % (Manual) Nucleated RBC % Seg Neutrophils # Seg Neutrophils # Man Lymphocytes # (Manual) Monocytes # (Manual) Eosinophils # (Manual) PT INR APTT D-Dimer Heparin Anti-Xa Level ABG pH 7.464 H POC ABG pCO2 60.8 H POC ABG pO2 ABG pO2 ABG HCO3 ABG O2 Saturation ABG Base Excess ABG Hemoglobin 10.1 L ABG Oxyhemoglobin ABG Sodium ABG Potassium 2.9 L ABG Chloride 92.0 L ABG Glucose 298 H Oxyhemoglobin Carboxyhemoglobin Sodium Potassium Chloride Carbon Dioxide BUN Creatinine Glucose POC Glucose 241 H 211 H Lactic Acid Calcium Magnesium Ferritin Total Bilirubin Direct Bilirubin AST ALT Alkaline Phosphatase Lactate Dehydrogenase C-Reactive Protein Total Protein Albumin Triglycerides Lipase Arterial Blood Glucose 298 H Arterial Blood Ionized Calcium Urine WBC (Auto) Coronavirus (PCR) SARS-CoV-2 IgG Ab Crossmatch 06/27/20 06/27/20 06/27/20 12:37 18:08 20:52 WBC RBC Hgb Hct MCV MCH MCHC RDW Lymph % (Auto) [place] % (Auto) Lymph # (Auto) [place] # (Auto) Baso # (Auto) Seg Neutrophils % Seg Neuts % (Manual) Lymphocytes % (Manual) Nucleated RBC % Seg Neutrophils # Seg Neutrophils # Man Lymphocytes # (Manual) Monocytes # (Manual) Eosinophils # (Manual) PT INR APTT D-Dimer Heparin Anti-Xa Level ABG pH POC ABG pCO2 POC ABG pO2 ABG pO2 ABG HCO3 ABG O2 Saturation ABG Base Excess ABG Hemoglobin ABG Oxyhemoglobin ABG Sodium ABG Potassium ABG Chloride ABG Glucose Oxyhemoglobin Carboxyhemoglobin Sodium Potassium Chloride Carbon Dioxide BUN Creatinine Glucose POC Glucose 182 H 197 H 195 H Lactic Acid Calcium Magnesium Ferritin Total Bilirubin Direct Bilirubin AST ALT Alkaline Phosphatase Lactate Dehydrogenase C-Reactive Protein Total Protein Albumin Triglycerides Lipase Arterial Blood Glucose Arterial Blood Ionized Calcium Urine WBC (Auto) Coronavirus (PCR) SARS-CoV-2 IgG Ab Crossmatch 06/27/20 06/28/20 06/28/20 Unknown 04:17 04:50 WBC RBC Hgb Hct MCV MCH MCHC RDW Lymph % (Auto) [place] % (Auto) Lymph # (Auto) [place] # (Auto) Baso # (Auto) Seg Neutrophils % Seg Neuts % (Manual) Lymphocytes % (Manual) Nucleated RBC % Seg Neutrophils # Seg Neutrophils # Man Lymphocytes # (Manual) Monocytes # (Manual) Eosinophils # (Manual) PT INR APTT D-Dimer Heparin Anti-Xa Level ABG pH POC ABG pCO2 58.6 H POC ABG pO2 60.1 L ABG pO2 ABG HCO3 ABG O2 Saturation ABG Base Excess ABG Hemoglobin 10.0 L ABG Oxyhemoglobin ABG Sodium 125.3 L ABG Potassium ABG Chloride 93.0 L ABG Glucose 308 H Oxyhemoglobin Carboxyhemoglobin Sodium Potassium 2.9 L* Chloride 93.4 L Carbon Dioxide 42 H* BUN Creatinine 0.3 L Glucose 211 H POC Glucose 252 H Lactic Acid Calcium 8.1 L Magnesium Ferritin Total Bilirubin Direct Bilirubin AST ALT Alkaline Phosphatase Lactate Dehydrogenase C-Reactive Protein Total Protein 5.1 L Albumin 2.4 L Triglycerides Lipase Arterial Blood Glucose 308 H Arterial Blood Ionized Calcium Urine WBC (Auto) Coronavirus (PCR) SARS-CoV-2 IgG Ab Crossmatch 06/28/20 06/28/20 06/28/20 06:35 06:35 11:36 WBC 18.9 H RBC 2.85 L Hgb 9.5 L Hct 28.4 L MCV 100 H MCH 33 H MCHC RDW 17.3 H Lymph % (Auto) [place] % (Auto) Lymph # (Auto) [place] # (Auto) Baso # (Auto) Seg Neutrophils % 88.6 H Seg Neuts % (Manual) 95.0 H Lymphocytes % (Manual) 1.0 L Nucleated RBC % Seg Neutrophils # 15.9 H Seg Neutrophils # Man 18.0 H Lymphocytes # (Manual) 0.2 L Monocytes # (Manual) Eosinophils # (Manual) PT INR APTT D-Dimer Heparin Anti-Xa Level ABG pH POC ABG pCO2 POC ABG pO2 ABG pO2 ABG HCO3 ABG O2 Saturation ABG Base Excess ABG Hemoglobin ABG Oxyhemoglobin ABG Sodium ABG Potassium ABG Chloride ABG Glucose Oxyhemoglobin Carboxyhemoglobin Sodium Potassium Chloride 94.2 L Carbon Dioxide 38 H BUN Creatinine 0.3 L Glucose 228 H POC Glucose 243 H Lactic Acid Calcium Magnesium Ferritin Total Bilirubin Direct Bilirubin AST ALT Alkaline Phosphatase Lactate Dehydrogenase C-Reactive Protein Total Protein 6.1 L Albumin 2.7 L Triglycerides Lipase Arterial Blood Glucose Arterial Blood Ionized Calcium Urine WBC (Auto) Coronavirus (PCR) SARS-CoV-2 IgG Ab Crossmatch 06/28/20 06/28/20 06/29/20 16:53 21:10 00:06 WBC RBC Hgb Hct MCV MCH MCHC RDW Lymph % (Auto) [place] % (Auto) Lymph # (Auto) [place] # (Auto) Baso # (Auto) Seg Neutrophils % Seg Neuts % (Manual) Lymphocytes % (Manual) Nucleated RBC % Seg Neutrophils # Seg Neutrophils # Man Lymphocytes # (Manual) Monocytes # (Manual) Eosinophils # (Manual) PT INR APTT D-Dimer Heparin Anti-Xa Level ABG pH POC ABG pCO2 POC ABG pO2 ABG pO2 ABG HCO3 ABG O2 Saturation ABG Base Excess ABG Hemoglobin ABG Oxyhemoglobin ABG Sodium ABG Potassium ABG Chloride ABG Glucose Oxyhemoglobin Carboxyhemoglobin Sodium Potassium Chloride Carbon Dioxide BUN Creatinine Glucose POC Glucose 211 H 195 H 200 H Lactic Acid Calcium Magnesium Ferritin Total Bilirubin Direct Bilirubin AST ALT Alkaline Phosphatase Lactate Dehydrogenase C-Reactive Protein Total Protein Albumin Triglycerides Lipase Arterial Blood Glucose Arterial Blood Ionized Calcium Urine WBC (Auto) Coronavirus (PCR) SARS-CoV-2 IgG Ab Crossmatch 06/29/20 06/29/20 06/29/20 03:11 04:00 04:00 WBC 18.8 H RBC 2.82 L Hgb 10.1 L Hct 28.5 L MCV 101 H MCH 36 H MCHC 36 H RDW 17.5 H Lymph % (Auto) 10.7 L [place] % (Auto) Lymph # (Auto) [place] # (Auto) 1.0 H Baso # (Auto) 0.3 H Seg Neutrophils % 82.2 H Seg Neuts % (Manual) Lymphocytes % (Manual) Nucleated RBC % Seg Neutrophils # 15.5 H Seg Neutrophils # Man Lymphocytes # (Manual) Monocytes # (Manual) Eosinophils # (Manual) PT INR APTT D-Dimer Heparin Anti-Xa Level ABG pH POC ABG pCO2 57.5 H POC ABG pO2 69.1 L ABG pO2 ABG HCO3 ABG O2 Saturation ABG Base Excess ABG Hemoglobin 10.2 L ABG Oxyhemoglobin 92.3 L ABG Sodium 130.7 L ABG Potassium 3.2 L ABG Chloride 93.0 L ABG Glucose 228 H Oxyhemoglobin Carboxyhemoglobin Sodium 134 L Potassium 3.3 L Chloride 89.5 L Carbon Dioxide 40 H BUN Creatinine 0.2 L Glucose 190 H POC Glucose Lactic Acid Calcium Magnesium Ferritin Total Bilirubin Direct Bilirubin AST < 5 L ALT < 5 L Alkaline Phosphatase Lactate Dehydrogenase C-Reactive Protein Total Protein 5.9 L Albumin 2.2 L Triglycerides Lipase Arterial Blood Glucose 228 H Arterial Blood Ionized Calcium Urine WBC (Auto) Coronavirus (PCR) SARS-CoV-2 IgG Ab Crossmatch 06/29/20 06/29/20 06/29/20 05:00 05:23 09:36 WBC RBC Hgb Hct MCV MCH MCHC RDW Lymph % (Auto) [place] % (Auto) Lymph # (Auto) [place] # (Auto) Baso # (Auto) Seg Neutrophils % Seg Neuts % (Manual) Lymphocytes % (Manual) Nucleated RBC % Seg Neutrophils # Seg Neutrophils # Man Lymphocytes # (Manual) Monocytes # (Manual) Eosinophils # (Manual) PT INR APTT D-Dimer Heparin Anti-Xa Level ABG pH POC ABG pCO2 POC ABG pO2 ABG pO2 ABG HCO3 ABG O2 Saturation ABG Base Excess ABG Hemoglobin ABG Oxyhemoglobin ABG Sodium ABG Potassium ABG Chloride ABG Glucose Oxyhemoglobin Carboxyhemoglobin Sodium Potassium Chloride Carbon Dioxide BUN Creatinine Glucose POC Glucose 165 H Lactic Acid Calcium Magnesium Ferritin Total Bilirubin Direct Bilirubin AST ALT Alkaline Phosphatase Lactate Dehydrogenase C-Reactive Protein Total Protein Albumin Triglycerides 1544 H 1799 H Lipase Arterial Blood Glucose Arterial Blood Ionized Calcium Urine WBC (Auto) Coronavirus (PCR) SARS-CoV-2 IgG Ab Crossmatch 06/29/20 06/29/20 06/29/20 09:36 12:02 18:00 WBC RBC Hgb Hct MCV MCH MCHC RDW Lymph % (Auto) [place] % (Auto) Lymph # (Auto) [place] # (Auto) Baso # (Auto) Seg Neutrophils % Seg Neuts % (Manual) Lymphocytes % (Manual) Nucleated RBC % Seg Neutrophils # Seg Neutrophils # Man Lymphocytes # (Manual) Monocytes # (Manual) Eosinophils # (Manual) PT INR APTT D-Dimer Heparin Anti-Xa Level ABG pH POC ABG pCO2 POC ABG pO2 ABG pO2 ABG HCO3 ABG O2 Saturation ABG Base Excess ABG Hemoglobin ABG Oxyhemoglobin ABG Sodium ABG Potassium ABG Chloride ABG Glucose Oxyhemoglobin Carboxyhemoglobin Sodium Potassium Chloride Carbon Dioxide BUN Creatinine Glucose POC Glucose 197 H 187 H Lactic Acid Calcium Magnesium Ferritin Total Bilirubin Direct Bilirubin AST ALT Alkaline Phosphatase Lactate Dehydrogenase C-Reactive Protein Total Protein Albumin Triglycerides Lipase 86 H Arterial Blood Glucose Arterial Blood Ionized Calcium Urine WBC (Auto) Coronavirus (PCR) SARS-CoV-2 IgG Ab Crossmatch 06/29/20 06/30/20 06/30/20 23:33 03:46 05:50 WBC RBC Hgb Hct MCV MCH MCHC RDW Lymph % (Auto) [place] % (Auto) Lymph # (Auto) [place] # (Auto) Baso # (Auto) Seg Neutrophils % Seg Neuts % (Manual) Lymphocytes % (Manual) Nucleated RBC % Seg Neutrophils # Seg Neutrophils # Man Lymphocytes # (Manual) Monocytes # (Manual) Eosinophils # (Manual) PT INR APTT D-Dimer Heparin Anti-Xa Level ABG pH 7.466 H POC ABG pCO2 57.3 H POC ABG pO2 66.1 L ABG pO2 ABG HCO3 ABG O2 Saturation ABG Base Excess ABG Hemoglobin 10.2 L ABG Oxyhemoglobin 92.3 L ABG Sodium 134.4 L ABG Potassium 3.2 L ABG Chloride 94.0 L ABG Glucose 178 H Oxyhemoglobin Carboxyhemoglobin Sodium Potassium Chloride Carbon Dioxide BUN Creatinine Glucose POC Glucose 170 H 170 H Lactic Acid Calcium Magnesium Ferritin Total Bilirubin Direct Bilirubin AST ALT Alkaline Phosphatase Lactate Dehydrogenase C-Reactive Protein Total Protein Albumin Triglycerides Lipase Arterial Blood Glucose 178 H Arterial Blood Ionized Calcium Urine WBC (Auto) Coronavirus (PCR) SARS-CoV-2 IgG Ab Crossmatch 06/30/20 06/30/20 06/30/20 07:00 07:00 12:04 WBC 15.6 H RBC 2.91 L Hgb 9.8 L Hct 29.7 L MCV 102 H MCH 34 H MCHC RDW 17.8 H Lymph % (Auto) [place] % (Auto) Lymph # (Auto) [place] # (Auto) Baso # (Auto) Seg Neutrophils % Seg Neuts % (Manual) Lymphocytes % (Manual) 5.0 L Nucleated RBC % Seg Neutrophils # Seg Neutrophils # Man 14.8 H Lymphocytes # (Manual) 0.8 L Monocytes # (Manual) Eosinophils # (Manual) PT INR APTT D-Dimer Heparin Anti-Xa Level ABG pH POC ABG pCO2 POC ABG pO2 ABG pO2 ABG HCO3 ABG O2 Saturation ABG Base Excess ABG Hemoglobin ABG Oxyhemoglobin ABG Sodium ABG Potassium ABG Chloride ABG Glucose Oxyhemoglobin Carboxyhemoglobin Sodium Potassium Chloride 93.3 L Carbon Dioxide 43 H* BUN Creatinine 0.3 L Glucose 260 H POC Glucose 245 H Lactic Acid Calcium Magnesium Ferritin Total Bilirubin Direct Bilirubin AST ALT Alkaline Phosphatase Lactate Dehydrogenase C-Reactive Protein Total Protein Albumin 2.8 L Triglycerides 452 H Lipase Arterial Blood Glucose Arterial Blood Ionized Calcium Urine WBC (Auto) Coronavirus (PCR) SARS-CoV-2 IgG Ab Crossmatch 06/30/20 07/01/20 07/01/20 17:32 00:02 05:02 WBC RBC Hgb Hct MCV MCH MCHC RDW Lymph % (Auto) [place] % (Auto) Lymph # (Auto) [place] # (Auto) Baso # (Auto) Seg Neutrophils % Seg Neuts % (Manual) Lymphocytes % (Manual) Nucleated RBC % Seg Neutrophils # Seg Neutrophils # Man Lymphocytes # (Manual) Monocytes # (Manual) Eosinophils # (Manual) PT INR APTT D-Dimer Heparin Anti-Xa Level ABG pH POC ABG pCO2 58.1 H POC ABG pO2 ABG pO2 ABG HCO3 ABG O2 Saturation ABG Base Excess ABG Hemoglobin 11.2 L ABG Oxyhemoglobin ABG Sodium 132.7 L ABG Potassium ABG Chloride 92.0 L ABG Glucose 238 H Oxyhemoglobin Carboxyhemoglobin Sodium Potassium Chloride Carbon Dioxide BUN Creatinine Glucose POC Glucose 209 H 208 H Lactic Acid Calcium Magnesium Ferritin Total Bilirubin Direct Bilirubin AST ALT Alkaline Phosphatase Lactate Dehydrogenase C-Reactive Protein Total Protein Albumin Triglycerides Lipase Arterial Blood Glucose 238 H Arterial Blood Ionized Calcium Urine WBC (Auto) Coronavirus (PCR) SARS-CoV-2 IgG Ab Crossmatch 07/01/20 07/01/20 07/01/20 06:16 06:41 06:41 WBC 18.1 H RBC 2.33 L Hgb 7.1 L Hct 21.3 L D MCV MCH MCHC RDW Lymph % (Auto) [place] % (Auto) Lymph # (Auto) [place] # (Auto) Baso # (Auto) Seg Neutrophils % Seg Neuts % (Manual) 82.0 H Lymphocytes % (Manual) 7.0 L Nucleated RBC % 1.0 H Seg Neutrophils # Seg Neutrophils # Man 14.8 H Lymphocytes # (Manual) Monocytes # (Manual) 1.1 H Eosinophils # (Manual) 0.5 H PT INR APTT D-Dimer Heparin Anti-Xa Level < 0.10 L ABG pH POC ABG pCO2 POC ABG pO2 ABG pO2 ABG HCO3 ABG O2 Saturation ABG Base Excess ABG Hemoglobin ABG Oxyhemoglobin ABG Sodium ABG Potassium ABG Chloride ABG Glucose Oxyhemoglobin Carboxyhemoglobin Sodium Potassium Chloride Carbon Dioxide BUN Creatinine Glucose POC Glucose 180 H Lactic Acid Calcium Magnesium Ferritin Total Bilirubin Direct Bilirubin AST ALT Alkaline Phosphatase Lactate Dehydrogenase C-Reactive Protein Total Protein Albumin Triglycerides Lipase Arterial Blood Glucose Arterial Blood Ionized Calcium Urine WBC (Auto) Coronavirus (PCR) SARS-CoV-2 IgG Ab Crossmatch 07/01/20 07/01/20 07/01/20 08:11 12:04 16:16 WBC RBC Hgb Hct MCV MCH MCHC RDW Lymph % (Auto) [place] % (Auto) Lymph # (Auto) [place] # (Auto) Baso # (Auto) Seg Neutrophils % Seg Neuts % (Manual) Lymphocytes % (Manual) Nucleated RBC % Seg Neutrophils # Seg Neutrophils # Man Lymphocytes # (Manual) Monocytes # (Manual) Eosinophils # (Manual) PT INR APTT D-Dimer Heparin Anti-Xa Level 1.02 H ABG pH POC ABG pCO2 POC ABG pO2 ABG pO2 ABG HCO3 ABG O2 Saturation ABG Base Excess ABG Hemoglobin ABG Oxyhemoglobin ABG Sodium ABG Potassium ABG Chloride ABG Glucose Oxyhemoglobin Carboxyhemoglobin Sodium 135 L Potassium 3.0 L Chloride 93.1 L Carbon Dioxide 40 H BUN Creatinine 0.3 L Glucose 140 H POC Glucose 223 H Lactic Acid Calcium Magnesium Ferritin Total Bilirubin Direct Bilirubin AST ALT Alkaline Phosphatase Lactate Dehydrogenase C-Reactive Protein Total Protein Albumin Triglycerides Lipase Arterial Blood Glucose Arterial Blood Ionized Calcium Urine WBC (Auto) Coronavirus (PCR) SARS-CoV-2 IgG Ab Crossmatch 07/01/20 07/01/20 07/02/20 17:09 23:19 00:56 WBC RBC Hgb Hct MCV MCH MCHC RDW Lymph % (Auto) [place] % (Auto) Lymph # (Auto) [place] # (Auto) Baso # (Auto) Seg Neutrophils % Seg Neuts % (Manual) Lymphocytes % (Manual) Nucleated RBC % Seg Neutrophils # Seg Neutrophils # Man Lymphocytes # (Manual) Monocytes # (Manual) Eosinophils # (Manual) PT INR APTT D-Dimer Heparin Anti-Xa Level 0.22 L ABG pH POC ABG pCO2 POC ABG pO2 ABG pO2 ABG HCO3 ABG O2 Saturation ABG Base Excess ABG Hemoglobin ABG Oxyhemoglobin ABG Sodium ABG Potassium ABG Chloride ABG Glucose Oxyhemoglobin Carboxyhemoglobin Sodium Potassium Chloride Carbon Dioxide BUN Creatinine Glucose POC Glucose 233 H 255 H Lactic Acid Calcium Magnesium Ferritin Total Bilirubin Direct Bilirubin AST ALT Alkaline Phosphatase Lactate Dehydrogenase C-Reactive Protein Total Protein Albumin Triglycerides Lipase Arterial Blood Glucose Arterial Blood Ionized Calcium Urine WBC (Auto) Coronavirus (PCR) SARS-CoV-2 IgG Ab Crossmatch 07/02/20 07/02/20 07/02/20 03:51 05:35 11:39 WBC RBC Hgb Hct MCV MCH MCHC RDW Lymph % (Auto) [place] % (Auto) Lymph # (Auto) [place] # (Auto) Baso # (Auto) Seg Neutrophils % Seg Neuts % (Manual) Lymphocytes % (Manual) Nucleated RBC % Seg Neutrophils # Seg Neutrophils # Man Lymphocytes # (Manual) Monocytes # (Manual) Eosinophils # (Manual) PT INR APTT D-Dimer Heparin Anti-Xa Level ABG pH POC ABG pCO2 54.9 H POC ABG pO2 52.1 L ABG pO2 ABG HCO3 ABG O2 Saturation ABG Base Excess ABG Hemoglobin 11.9 L ABG Oxyhemoglobin 82.8 L ABG Sodium 130.2 L ABG Potassium ABG Chloride 92.0 L ABG Glucose 249 H Oxyhemoglobin Carboxyhemoglobin 1.9 H Sodium Potassium Chloride Carbon Dioxide BUN Creatinine Glucose POC Glucose 205 H 235 H Lactic Acid Calcium Magnesium Ferritin Total Bilirubin Direct Bilirubin AST ALT Alkaline Phosphatase Lactate Dehydrogenase C-Reactive Protein Total Protein Albumin Triglycerides Lipase Arterial Blood Glucose 249 H Arterial Blood Ionized Calcium Urine WBC (Auto) Coronavirus (PCR) SARS-CoV-2 IgG Ab Crossmatch 07/02/20 07/02/20 07/02/20 16:08 16:08 17:54 WBC 19.8 H RBC 3.28 L Hgb 10.7 L D Hct 32.7 L D MCV 100 H MCH 33 H MCHC RDW 17.2 H Lymph % (Auto) [place] % (Auto) Lymph # (Auto) [place] # (Auto) Baso # (Auto) Seg Neutrophils % Seg Neuts % (Manual) Lymphocytes % (Manual) Nucleated RBC % Seg Neutrophils # Seg Neutrophils # Man Lymphocytes # (Manual) Monocytes # (Manual) Eosinophils # (Manual) PT INR APTT D-Dimer Heparin Anti-Xa Level ABG pH POC ABG pCO2 POC ABG pO2 ABG pO2 ABG HCO3 ABG O2 Saturation ABG Base Excess ABG Hemoglobin ABG Oxyhemoglobin ABG Sodium ABG Potassium ABG Chloride ABG Glucose Oxyhemoglobin Carboxyhemoglobin Sodium 136 L Potassium Chloride 92.4 L Carbon Dioxide 35 H BUN Creatinine 0.3 L Glucose 203 H POC Glucose 175 H Lactic Acid Calcium Magnesium Ferritin Total Bilirubin Direct Bilirubin AST ALT Alkaline Phosphatase Lactate Dehydrogenase C-Reactive Protein Total Protein Albumin Triglycerides Lipase Arterial Blood Glucose Arterial Blood Ionized Calcium Urine WBC (Auto) Coronavirus (PCR) SARS-CoV-2 IgG Ab Crossmatch 07/02/20 07/03/20 07/03/20 23:46 03:25 05:54 WBC RBC Hgb Hct MCV MCH MCHC RDW Lymph % (Auto) [place] % (Auto) Lymph # (Auto) [place] # (Auto) Baso # (Auto) Seg Neutrophils % Seg Neuts % (Manual) Lymphocytes % (Manual) Nucleated RBC % Seg Neutrophils # Seg Neutrophils # Man Lymphocytes # (Manual) Monocytes # (Manual) Eosinophils # (Manual) PT INR APTT D-Dimer Heparin Anti-Xa Level ABG pH 7.468 H POC ABG pCO2 51.5 H POC ABG pO2 ABG pO2 ABG HCO3 ABG O2 Saturation ABG Base Excess ABG Hemoglobin ABG Oxyhemoglobin ABG Sodium 130.2 L ABG Potassium ABG Chloride 91.0 L ABG Glucose 210 H Oxyhemoglobin Carboxyhemoglobin 1.6 H Sodium Potassium Chloride Carbon Dioxide BUN Creatinine Glucose POC Glucose 173 H 125 H Lactic Acid Calcium Magnesium Ferritin Total Bilirubin Direct Bilirubin AST ALT Alkaline Phosphatase Lactate Dehydrogenase C-Reactive Protein Total Protein Albumin Triglycerides Lipase Arterial Blood Glucose 210 H Arterial Blood Ionized Calcium Urine WBC (Auto) Coronavirus (PCR) SARS-CoV-2 IgG Ab Crossmatch 07/03/20 07/03/20 07/03/20 11:43 12:20 12:20 WBC 16.5 H RBC 3.13 L Hgb 10.4 L Hct 31.8 L MCV 102 H MCH 33 H MCHC RDW 17.2 H Lymph % (Auto) [place] % (Auto) Lymph # (Auto) [place] # (Auto) Baso # (Auto) Seg Neutrophils % Seg Neuts % (Manual) Lymphocytes % (Manual) Nucleated RBC % Seg Neutrophils # Seg Neutrophils # Man Lymphocytes # (Manual) Monocytes # (Manual) Eosinophils # (Manual) PT INR APTT D-Dimer Heparin Anti-Xa Level ABG pH POC ABG pCO2 POC ABG pO2 ABG pO2 ABG HCO3 ABG O2 Saturation ABG Base Excess ABG Hemoglobin ABG Oxyhemoglobin ABG Sodium ABG Potassium ABG Chloride ABG Glucose Oxyhemoglobin Carboxyhemoglobin Sodium 132 L Potassium Chloride 88.5 L Carbon Dioxide 37 H BUN Creatinine 0.3 L Glucose 230 H POC Glucose 223 H Lactic Acid Calcium Magnesium Ferritin Total Bilirubin Direct Bilirubin AST ALT Alkaline Phosphatase Lactate Dehydrogenase C-Reactive Protein Total Protein Albumin Triglycerides Lipase Arterial Blood Glucose Arterial Blood Ionized Calcium Urine WBC (Auto) Coronavirus (PCR) SARS-CoV-2 IgG Ab Crossmatch 07/03/20 07/03/20 07/04/20 17:24 21:41 00:54 WBC RBC Hgb Hct MCV MCH MCHC RDW Lymph % (Auto) [place] % (Auto) Lymph # (Auto) [place] # (Auto) Baso # (Auto) Seg Neutrophils % Seg Neuts % (Manual) Lymphocytes % (Manual) Nucleated RBC % Seg Neutrophils # Seg Neutrophils # Man Lymphocytes # (Manual) Monocytes # (Manual) Eosinophils # (Manual) PT INR APTT D-Dimer Heparin Anti-Xa Level ABG pH POC ABG pCO2 POC ABG pO2 ABG pO2 ABG HCO3 ABG O2 Saturation ABG Base Excess ABG Hemoglobin ABG Oxyhemoglobin ABG Sodium ABG Potassium ABG Chloride ABG Glucose Oxyhemoglobin Carboxyhemoglobin Sodium Potassium Chloride Carbon Dioxide BUN Creatinine Glucose POC Glucose 163 H 220 H 195 H Lactic Acid Calcium Magnesium Ferritin Total Bilirubin Direct Bilirubin AST ALT Alkaline Phosphatase Lactate Dehydrogenase C-Reactive Protein Total Protein Albumin Triglycerides Lipase Arterial Blood Glucose Arterial Blood Ionized Calcium Urine WBC (Auto) Coronavirus (PCR) SARS-CoV-2 IgG Ab Crossmatch 07/04/20 07/04/2007/04/20 03:25 04:00 04:00 WBC 14.9 H RBC 2.91 L Hgb 9.5 L Hct 29.2 L MCV 100 H MCH 33 H MCHC RDW 16.7 H Lymph % (Auto) 8.4 L [place] % (Auto) Lymph # (Auto) [place] # (Auto) 1.1 H Baso # (Auto) Seg Neutrophils % 84.2 H Seg Neuts % (Manual) Lymphocytes % (Manual) Nucleated RBC % Seg Neutrophils # 12.6 H Seg Neutrophils # Man Lymphocytes # (Manual) Monocytes # (Manual) Eosinophils # (Manual) PT INR APTT D-Dimer Heparin Anti-Xa Level ABG pH 7.474 H POC ABG pCO2 POC ABG pO2 51.8 L ABG pO2 ABG HCO3 ABG O2 Saturation ABG Base Excess ABG Hemoglobin ABG Oxyhemoglobin ABG Sodium ABG Potassium ABG Chloride ABG Glucose Oxyhemoglobin Carboxyhemoglobin Sodium Potassium 3.4 L Chloride 92.1 L Carbon Dioxide 34 H BUN Creatinine 0.3 L Glucose 173 H POC Glucose Lactic Acid Calcium Magnesium Ferritin Total Bilirubin Direct Bilirubin AST ALT Alkaline Phosphatase Lactate Dehydrogenase C-Reactive Protein Total Protein Albumin Triglycerides Lipase Arterial Blood Glucose Arterial Blood Ionized Calcium Urine WBC (Auto) Coronavirus (PCR) SARS-CoV-2 IgG Ab Crossmatch 07/04/20 07/04/20 07/04/20 06:18 11:39 17:18 WBC RBC Hgb Hct MCV MCH MCHC RDW Lymph % (Auto) [place] % (Auto) Lymph # (Auto) [place] # (Auto) Baso # (Auto) Seg Neutrophils % Seg Neuts % (Manual) Lymphocytes % (Manual) Nucleated RBC % Seg Neutrophils # Seg Neutrophils # Man Lymphocytes # (Manual) Monocytes # (Manual) Eosinophils # (Manual) PT INR APTT D-Dimer Heparin Anti-Xa Level ABG pH POC ABG pCO2 POC ABG pO2 ABG pO2 ABG HCO3 ABG O2 Saturation ABG Base Excess ABG Hemoglobin ABG Oxyhemoglobin ABG Sodium ABG Potassium ABG Chloride ABG Glucose Oxyhemoglobin Carboxyhemoglobin Sodium Potassium Chloride Carbon Dioxide BUN Creatinine Glucose POC Glucose 158 H 257 H 148 H Lactic Acid Calcium Magnesium Ferritin Total Bilirubin Direct Bilirubin AST ALT Alkaline Phosphatase Lactate Dehydrogenase C-Reactive Protein Total Protein Albumin Triglycerides Lipase Arterial Blood Glucose Arterial Blood Ionized Calcium Urine WBC (Auto) Coronavirus (PCR) SARS-CoV-2 IgG Ab Crossmatch 07/04/20 07/05/20 07/05/20 23:23 03:13 05:18 WBC 13.3 H RBC 2.90 L Hgb 9.8 L Hct 29.3 L MCV 101 H MCH 34 H MCHC RDW 17.0 H Lymph % (Auto) 11.1 L [place] % (Auto) Lymph # (Auto) [place] # (Auto) Baso # (Auto) Seg Neutrophils % 82.3 H Seg Neuts % (Manual) Lymphocytes % (Manual) Nucleated RBC % Seg Neutrophils # 10.9 H Seg Neutrophils # Man Lymphocytes # (Manual) Monocytes # (Manual) Eosinophils # (Manual) PT INR APTT D-Dimer Heparin Anti-Xa Level ABG pH 7.48 H POC ABG pCO2 52.0 H POC ABG pO2 ABG pO2 ABG HCO3 ABG O2 Saturation ABG Base Excess ABG Hemoglobin 10.0 L ABG Oxyhemoglobin ABG Sodium 131.0 L ABG Potassium 3.3 L ABG Chloride 93.0 L ABG Glucose 177 H Oxyhemoglobin Carboxyhemoglobin Sodium Potassium Chloride Carbon Dioxide BUN Creatinine Glucose POC Glucose 227 H Lactic Acid Calcium Magnesium Ferritin Total Bilirubin Direct Bilirubin AST ALT Alkaline Phosphatase Lactate Dehydrogenase C-Reactive Protein Total Protein Albumin Triglycerides Lipase Arterial Blood Glucose 177 H Arterial Blood Ionized Calcium Urine WBC (Auto) Coronavirus (PCR) SARS-CoV-2 IgG Ab Crossmatch 07/05/20 07/05/20 07/05/20 05:18 05:25 05:57 WBC RBC Hgb Hct MCV MCH MCHC RDW Lymph % (Auto) [place] % (Auto) Lymph # (Auto) [place] # (Auto) Baso # (Auto) Seg Neutrophils % Seg Neuts % (Manual) Lymphocytes % (Manual) Nucleated RBC % Seg Neutrophils # Seg Neutrophils # Man Lymphocytes # (Manual) Monocytes # (Manual) Eosinophils # (Manual) PT INR APTT D-Dimer Heparin Anti-Xa Level ABG pH 7.519 H POC ABG pCO2 POC ABG pO2 198.6 H ABG pO2 ABG HCO3 ABG O2 Saturation ABG Base Excess ABG Hemoglobin 10.3 L ABG Oxyhemoglobin 98.7 H ABG Sodium 133.6 L ABG Potassium 3.3 L ABG Chloride 93.0 L ABG Glucose 175 H Oxyhemoglobin Carboxyhemoglobin Sodium Potassium 3.4 L Chloride 92.5 L Carbon Dioxide 36 H BUN Creatinine 0.3 L Glucose 148 H POC Glucose 170 H Lactic Acid Calcium Magnesium Ferritin Total Bilirubin Direct Bilirubin AST ALT Alkaline Phosphatase Lactate Dehydrogenase C-Reactive Protein Total Protein Albumin Triglycerides Lipase Arterial Blood Glucose 175 H Arterial Blood Ionized Calcium Urine WBC (Auto) Coronavirus (PCR) SARS-CoV-2 IgG Ab Crossmatch 07/05/20 07/05/20 07/06/20 11:37 18:39 00:04 WBC RBC Hgb Hct MCV MCH MCHC RDW Lymph % (Auto) [place] % (Auto) Lymph # (Auto) [place] # (Auto) Baso # (Auto) Seg Neutrophils % Seg Neuts % (Manual) Lymphocytes % (Manual) Nucleated RBC % Seg Neutrophils # Seg Neutrophils # Man Lymphocytes # (Manual) Monocytes # (Manual) Eosinophils # (Manual) PT INR APTT D-Dimer Heparin Anti-Xa Level ABG pH POC ABG pCO2 POC ABG pO2 ABG pO2 ABG HCO3 ABG O2 Saturation ABG Base Excess ABG Hemoglobin ABG Oxyhemoglobin ABG Sodium ABG Potassium ABG Chloride ABG Glucose Oxyhemoglobin Carboxyhemoglobin Sodium Potassium Chloride Carbon Dioxide BUN Creatinine Glucose POC Glucose 195 H 200 H 222 H Lactic Acid Calcium Magnesium Ferritin Total Bilirubin Direct Bilirubin AST ALT Alkaline Phosphatase Lactate Dehydrogenase C-Reactive Protein Total Protein Albumin Triglycerides Lipase Arterial Blood Glucose Arterial Blood Ionized Calcium Urine WBC (Auto) Coronavirus (PCR) SARS-CoV-2 IgG Ab Crossmatch 07/06/20 07/06/20 07/06/20 05:25 06:52 06:52 WBC 15.8 H RBC 3.17 L Hgb 10.4 L Hct 31.5 L MCV 99 H MCH 33 H MCHC RDW 17.0 H Lymph % (Auto) [place] % (Auto) Lymph # (Auto) [place] # (Auto) Baso # (Auto) Seg Neutrophils % Seg Neuts % (Manual) Lymphocytes % (Manual) Nucleated RBC % Seg Neutrophils # Seg Neutrophils # Man Lymphocytes # (Manual) Monocytes # (Manual) Eosinophils # (Manual) PT INR APTT D-Dimer Heparin Anti-Xa Level ABG pH POC ABG pCO2 POC ABG pO2 ABG pO2 ABG HCO3 ABG O2 Saturation ABG Base Excess ABG Hemoglobin ABG Oxyhemoglobin ABG Sodium ABG Potassium ABG Chloride ABG Glucose Oxyhemoglobin Carboxyhemoglobin Sodium 135 L Potassium 3.4 L Chloride 91.9 L Carbon Dioxide 38 H BUN Creatinine 0.3 L Glucose 189 H POC Glucose 165 H Lactic Acid Calcium Magnesium Ferritin Total Bilirubin Direct Bilirubin AST ALT Alkaline Phosphatase Lactate Dehydrogenase C-Reactive Protein Total Protein Albumin Triglycerides Lipase Arterial Blood Glucose Arterial Blood Ionized Calcium Urine WBC (Auto) Coronavirus (PCR) SARS-CoV-2 IgG Ab Crossmatch 07/06/20 07/06/20 07/06/20 13:01 18:04 23:08 WBC RBC Hgb Hct MCV MCH MCHC RDW Lymph % (Auto) [place] % (Auto) Lymph # (Auto) [place] # (Auto) Baso # (Auto) Seg Neutrophils % Seg Neuts % (Manual) Lymphocytes % (Manual) Nucleated RBC % Seg Neutrophils # Seg Neutrophils # Man Lymphocytes # (Manual) Monocytes # (Manual) Eosinophils # (Manual) PT INR APTT D-Dimer Heparin Anti-Xa Level ABG pH POC ABG pCO2 POC ABG pO2 ABG pO2 ABG HCO3 ABG O2 Saturation ABG Base Excess ABG Hemoglobin ABG Oxyhemoglobin ABG Sodium ABG Potassium ABG Chloride ABG Glucose Oxyhemoglobin Carboxyhemoglobin Sodium Potassium Chloride Carbon Dioxide BUN Creatinine Glucose POC Glucose 195 H 169 H 173 H Lactic Acid Calcium Magnesium Ferritin Total Bilirubin Direct Bilirubin AST ALT Alkaline Phosphatase Lactate Dehydrogenase C-Reactive Protein Total Protein Albumin Triglycerides Lipase Arterial Blood Glucose Arterial Blood Ionized Calcium Urine WBC (Auto) Coronavirus (PCR) SARS-CoV-2 IgG Ab Crossmatch 07/07/20 07/07/20 07/07/20 05:35 05:35 05:39 WBC 17.6 H RBC 3.16 L Hgb 10.4 L Hct 31.5 L MCV 100 H MCH 33 H MCHC RDW 16.7 H Lymph % (Auto) 11.1 L [place] % (Auto) Lymph # (Auto) [place] # (Auto) 1.0 H Baso # (Auto) Seg Neutrophils % 83.0 H Seg Neuts % (Manual) Lymphocytes % (Manual) Nucleated RBC % Seg Neutrophils # 14.6 H Seg Neutrophils # Man Lymphocytes # (Manual) Monocytes # (Manual) Eosinophils # (Manual) PT INR APTT D-Dimer Heparin Anti-Xa Level ABG pH POC ABG pCO2 POC ABG pO2 ABG pO2 ABG HCO3 ABG O2 Saturation ABG Base Excess ABG Hemoglobin ABG Oxyhemoglobin ABG Sodium ABG Potassium ABG Chloride ABG Glucose Oxyhemoglobin Carboxyhemoglobin Sodium 135 L Potassium 3.4 L Chloride 94.3 L Carbon Dioxide 32 H BUN Creatinine 0.2 L Glucose 240 H POC Glucose 191 H Lactic Acid Calcium Magnesium Ferritin Total Bilirubin Direct Bilirubin AST ALT Alkaline Phosphatase Lactate Dehydrogenase C-Reactive Protein Total Protein Albumin Triglycerides Lipase Arterial Blood Glucose Arterial Blood Ionized Calcium Urine WBC (Auto) Coronavirus (PCR) SARS-CoV-2 IgG Ab Crossmatch 07/07/20 07/07/20 07/07/20 12:08 16:39 23:41 WBC RBC Hgb Hct MCV MCH MCHC RDW Lymph % (Auto) [place] % (Auto) Lymph # (Auto) [place] # (Auto) Baso # (Auto) Seg Neutrophils % Seg Neuts % (Manual) Lymphocytes % (Manual) Nucleated RBC % Seg Neutrophils # Seg Neutrophils # Man Lymphocytes # (Manual) Monocytes # (Manual) Eosinophils # (Manual) PT INR APTT D-Dimer Heparin Anti-Xa Level ABG pH POC ABG pCO2 POC ABG pO2 ABG pO2 ABG HCO3 ABG O2 Saturation ABG Base Excess ABG Hemoglobin ABG Oxyhemoglobin ABG Sodium ABG Potassium ABG Chloride ABG Glucose Oxyhemoglobin Carboxyhemoglobin Sodium Potassium Chloride Carbon Dioxide BUN Creatinine Glucose POC Glucose 248 H 209 H 231 H Lactic Acid Calcium Magnesium Ferritin Total Bilirubin Direct Bilirubin AST ALT Alkaline Phosphatase Lactate Dehydrogenase C-Reactive Protein Total Protein Albumin Triglycerides Lipase Arterial Blood Glucose Arterial Blood Ionized Calcium Urine WBC (Auto) Coronavirus (PCR) SARS-CoV-2 IgG Ab Crossmatch 07/08/20 07/08/20 07/08/20 04:58 04:58 05:38 WBC 21.0 H RBC 2.86 L Hgb 9.2 L Hct 28.6 L MCV 100 H MCH MCHC RDW 16.7 H Lymph % (Auto) [place] % (Auto) Lymph # (Auto) [place] # (Auto) Baso # (Auto) Seg Neutrophils % Seg Neuts % (Manual) 93.0 H Lymphocytes % (Manual) 3.0 L Nucleated RBC % Seg Neutrophils # Seg Neutrophils # Man 19.5 H Lymphocytes # (Manual) 0.6 L Monocytes # (Manual) Eosinophils # (Manual) PT INR APTT D-Dimer Heparin Anti-Xa Level ABG pH POC ABG pCO2 POC ABG pO2 ABG pO2 ABG HCO3 ABG O2 Saturation ABG Base Excess ABG Hemoglobin ABG Oxyhemoglobin ABG Sodium ABG Potassium ABG Chloride ABG Glucose Oxyhemoglobin Carboxyhemoglobin Sodium Potassium 3.0 L Chloride Carbon Dioxide BUN Creatinine 0.2 L Glucose 201 H POC Glucose 161 H Lactic Acid Calcium 7.9 L D Magnesium Ferritin Total Bilirubin Direct Bilirubin AST ALT Alkaline Phosphatase Lactate Dehydrogenase C-Reactive Protein Total Protein Albumin Triglycerides Lipase Arterial Blood Glucose Arterial Blood Ionized Calcium Urine WBC (Auto) Coronavirus (PCR) SARS-CoV-2 IgG Ab Crossmatch 07/08/20 07/08/20 07/08/20 12:19 16:26 Unknown WBC RBC Hgb Hct MCV MCH MCHC RDW Lymph % (Auto) [place] % (Auto) Lymph # (Auto) [place] # (Auto) Baso # (Auto) Seg Neutrophils % Seg Neuts % (Manual) Lymphocytes % (Manual) Nucleated RBC % Seg Neutrophils # Seg Neutrophils # Man Lymphocytes # (Manual) Monocytes # (Manual) Eosinophils # (Manual) PT INR APTT D-Dimer Heparin Anti-Xa Level ABG pH POC ABG pCO2 POC ABG pO2 ABG pO2 75.3 L ABG HCO3 34.3 H ABG O2 Saturation ABG Base Excess 8.7 H ABG Hemoglobin 10.2 L ABG Oxyhemoglobin ABG Sodium ABG Potassium ABG Chloride ABG Glucose Oxyhemoglobin 93.7 L Carboxyhemoglobin Sodium Potassium Chloride Carbon Dioxide BUN Creatinine Glucose POC Glucose 152 H 173 H Lactic Acid Calcium Magnesium Ferritin Total Bilirubin Direct Bilirubin AST ALT Alkaline Phosphatase Lactate Dehydrogenase C-Reactive Protein Total Protein Albumin Triglycerides Lipase Arterial Blood Glucose Arterial Blood Ionized Calcium Urine WBC (Auto) Coronavirus (PCR) SARS-CoV-2 IgG Ab Crossmatch 07/09/20 07/09/20 07/09/20 00:01 06:00 11:55 WBC RBC Hgb Hct MCV MCH MCHC RDW Lymph % (Auto) [place] % (Auto) Lymph # (Auto) [place] # (Auto) Baso # (Auto) Seg Neutrophils % Seg Neuts % (Manual) Lymphocytes % (Manual) Nucleated RBC % Seg Neutrophils # Seg Neutrophils # Man Lymphocytes # (Manual) Monocytes # (Manual) Eosinophils # (Manual) PT INR APTT D-Dimer Heparin Anti-Xa Level ABG pH POC ABG pCO2 POC ABG pO2 ABG pO2 ABG HCO3 ABG O2 Saturation ABG Base Excess ABG Hemoglobin ABG Oxyhemoglobin ABG Sodium ABG Potassium ABG Chloride ABG Glucose Oxyhemoglobin Carboxyhemoglobin Sodium Potassium Chloride Carbon Dioxide BUN Creatinine Glucose POC Glucose 207 H 141 H 228 H Lactic Acid Calcium Magnesium Ferritin Total Bilirubin Direct Bilirubin AST ALT Alkaline Phosphatase Lactate Dehydrogenase C-Reactive Protein Total Protein Albumin Triglycerides Lipase Arterial Blood Glucose Arterial Blood Ionized Calcium Urine WBC (Auto) Coronavirus (PCR) SARS-CoV-2 IgG Ab Crossmatch 07/09/20 07/09/20 07/09/20 16:47 23:53 Unknown WBC RBC Hgb Hct MCV MCH MCHC RDW Lymph % (Auto) [place] % (Auto) Lymph # (Auto) [place] # (Auto) Baso # (Auto) Seg Neutrophils % Seg Neuts % (Manual) Lymphocytes % (Manual) Nucleated RBC % Seg Neutrophils # Seg Neutrophils # Man Lymphocytes # (Manual) Monocytes # (Manual) Eosinophils # (Manual) PT INR APTT D-Dimer Heparin Anti-Xa Level ABG pH POC ABG pCO2 POC ABG pO2 ABG pO2 ABG HCO3 ABG O2 Saturation ABG Base Excess ABG Hemoglobin ABG Oxyhemoglobin ABG Sodium ABG Potassium ABG Chloride ABG Glucose Oxyhemoglobin Carboxyhemoglobin Sodium 132 L Potassium Chloride 92.7 L Carbon Dioxide 35 H BUN Creatinine 0.2 L Glucose 234 H POC Glucose 136 H 219 H Lactic Acid Calcium Magnesium Ferritin Total Bilirubin Direct Bilirubin AST ALT Alkaline Phosphatase Lactate Dehydrogenase C-Reactive Protein Total Protein Albumin Triglycerides Lipase Arterial Blood Glucose Arterial Blood Ionized Calcium Urine WBC (Auto) Coronavirus (PCR) SARS-CoV-2 IgG Ab Crossmatch 07/10/20 07/10/20 07/10/20 05:20 12:05 18:38 WBC RBC Hgb Hct MCV MCH MCHC RDW Lymph % (Auto) [place] % (Auto) Lymph # (Auto) [place] # (Auto) Baso # (Auto) Seg Neutrophils % Seg Neuts % (Manual) Lymphocytes % (Manual) Nucleated RBC % Seg Neutrophils # Seg Neutrophils # Man Lymphocytes # (Manual) Monocytes # (Manual) Eosinophils # (Manual) PT INR APTT D-Dimer Heparin Anti-Xa Level ABG pH POC ABG pCO2 POC ABG pO2 ABG pO2 ABG HCO3 ABG O2 Saturation ABG Base Excess ABG Hemoglobin ABG Oxyhemoglobin ABG Sodium ABG Potassium ABG Chloride ABG Glucose Oxyhemoglobin Carboxyhemoglobin Sodium Potassium Chloride Carbon Dioxide BUN Creatinine Glucose POC Glucose 221 H 174 H 152 H Lactic Acid Calcium Magnesium Ferritin Total Bilirubin Direct Bilirubin AST ALT Alkaline Phosphatase Lactate Dehydrogenase C-Reactive Protein Total Protein Albumin Triglycerides Lipase Arterial Blood Glucose Arterial Blood Ionized Calcium Urine WBC (Auto) Coronavirus (PCR) SARS-CoV-2 IgG Ab Crossmatch 07/11/20 07/11/20 07/11/20 00:16 05:42 08:13 WBC 11.9 H RBC 3.13 L Hgb 10.2 L Hct 31.2 L MCV 100 H MCH 33 H MCHC RDW 16.4 H Lymph % (Auto) [place] % (Auto) 9.3 H Lymph # (Auto) [place] # (Auto) 1.1 H Baso # (Auto) Seg Neutrophils % 72.7 H Seg Neuts % (Manual) Lymphocytes % (Manual) Nucleated RBC % Seg Neutrophils # 8.7 H Seg Neutrophils # Man Lymphocytes # (Manual) Monocytes # (Manual) Eosinophils # (Manual) PT INR APTT D-Dimer Heparin Anti-Xa Level ABG pH POC ABG pCO2 POC ABG pO2 ABG pO2 ABG HCO3 ABG O2 Saturation ABG Base Excess ABG Hemoglobin ABG Oxyhemoglobin ABG Sodium ABG Potassium ABG Chloride ABG Glucose Oxyhemoglobin Carboxyhemoglobin Sodium Potassium Chloride Carbon Dioxide BUN Creatinine Glucose POC Glucose 170 H 186 H Lactic Acid Calcium Magnesium Ferritin Total Bilirubin Direct Bilirubin AST ALT Alkaline Phosphatase Lactate Dehydrogenase C-Reactive Protein Total Protein Albumin Triglycerides Lipase Arterial Blood Glucose Arterial Blood Ionized Calcium Urine WBC (Auto) Coronavirus (PCR) SARS-CoV-2 IgG Ab Crossmatch 07/11/20 07/11/20 07/11/20 08:13 11:35 18:07 WBC RBC Hgb Hct MCV MCH MCHC RDW Lymph % (Auto) [place] % (Auto) Lymph # (Auto) [place] # (Auto) Baso # (Auto) Seg Neutrophils % Seg Neuts % (Manual) Lymphocytes % (Manual) Nucleated RBC % Seg Neutrophils # Seg Neutrophils # Man Lymphocytes # (Manual) Monocytes # (Manual) Eosinophils # (Manual) PT INR APTT D-Dimer Heparin Anti-Xa Level ABG pH POC ABG pCO2 POC ABG pO2 ABG pO2 ABG HCO3 ABG O2 Saturation ABG Base Excess ABG Hemoglobin ABG Oxyhemoglobin ABG Sodium ABG Potassium ABG Chloride ABG Glucose Oxyhemoglobin Carboxyhemoglobin Sodium 135 L Potassium Chloride 92.8 L Carbon Dioxide 38 H BUN Creatinine 0.2 L Glucose 132 H POC Glucose 129 H 156 H Lactic Acid Calcium Magnesium Ferritin Total Bilirubin Direct Bilirubin AST ALT Alkaline Phosphatase Lactate Dehydrogenase C-Reactive Protein Total Protein Albumin Triglycerides Lipase Arterial Blood Glucose Arterial Blood Ionized Calcium Urine WBC (Auto) Coronavirus (PCR) SARS-CoV-2 IgG Ab Crossmatch 07/11/20 07/11/20 07/12/20 18:36 23:18 05:28 WBC RBC Hgb Hct MCV MCH MCHC RDW Lymph % (Auto) [place] % (Auto) Lymph # (Auto) [place] # (Auto) Baso # (Auto) Seg Neutrophils % Seg Neuts % (Manual) Lymphocytes % (Manual) Nucleated RBC % Seg Neutrophils # Seg Neutrophils # Man Lymphocytes # (Manual) Monocytes # (Manual) Eosinophils # (Manual) PT INR APTT D-Dimer Heparin Anti-Xa Level ABG pH POC ABG pCO2 POC ABG pO2 70.9 L ABG pO2 ABG HCO3 ABG O2 Saturation ABG Base Excess ABG Hemoglobin 10.8 L ABG Oxyhemoglobin 92.5 L ABG Sodium 131.8 L ABG Potassium 3.2 L ABG Chloride 91.0 L ABG Glucose 181 H Oxyhemoglobin Carboxyhemoglobin Sodium Potassium Chloride Carbon Dioxide BUN Creatinine Glucose POC Glucose 189 H 190 H Lactic Acid Calcium Magnesium Ferritin Total Bilirubin Direct Bilirubin AST ALT Alkaline Phosphatase Lactate Dehydrogenase C-Reactive Protein Total Protein Albumin Triglycerides Lipase Arterial Blood Glucose 181 H Arterial Blood Ionized Calcium Urine WBC (Auto) Coronavirus (PCR) SARS-CoV-2 IgG Ab Crossmatch 07/12/20 07/12/20 07/12/20 11:33 17:45 23:59 WBC RBC Hgb Hct MCV MCH MCHC RDW Lymph % (Auto) [place] % (Auto) Lymph # (Auto) [place] # (Auto) Baso # (Auto) Seg Neutrophils % Seg Neuts % (Manual) Lymphocytes % (Manual) Nucleated RBC % Seg Neutrophils # Seg Neutrophils # Man Lymphocytes # (Manual) Monocytes # (Manual) Eosinophils # (Manual) PT INR APTT D-Dimer Heparin Anti-Xa Level ABG pH POC ABG pCO2 POC ABG pO2 ABG pO2 ABG HCO3 ABG O2 Saturation ABG Base Excess ABG Hemoglobin ABG Oxyhemoglobin ABG Sodium ABG Potassium ABG Chloride ABG Glucose Oxyhemoglobin Carboxyhemoglobin Sodium Potassium Chloride Carbon Dioxide BUN Creatinine Glucose POC Glucose 151 H 211 H 169 H Lactic Acid Calcium Magnesium Ferritin Total Bilirubin Direct Bilirubin AST ALT Alkaline Phosphatase Lactate Dehydrogenase C-Reactive Protein Total Protein Albumin Triglycerides Lipase Arterial Blood Glucose Arterial Blood Ionized Calcium Urine WBC (Auto) Coronavirus (PCR) SARS-CoV-2 IgG Ab Crossmatch 07/13/20 07/13/20 07/13/20 05:44 08:31 08:31 WBC 21.3 H RBC 2.92 L Hgb 9.7 L Hct 28.7 L MCV 98 H MCH 33 H MCHC RDW 16.8 H Lymph % (Auto) [place] % (Auto) Lymph # (Auto) [place] # (Auto) Baso # (Auto) Seg Neutrophils % Seg Neuts % (Manual) 96.0 H Lymphocytes % (Manual) 2.0 L Nucleated RBC % Seg Neutrophils # Seg Neutrophils # Man 20.4 H Lymphocytes # (Manual) 0.4 L Monocytes # (Manual) Eosinophils # (Manual) PT INR APTT D-Dimer Heparin Anti-Xa Level ABG pH POC ABG pCO2 POC ABG pO2 ABG pO2 ABG HCO3 ABG O2 Saturation ABG Base Excess ABG Hemoglobin ABG Oxyhemoglobin ABG Sodium ABG Potassium ABG Chloride ABG Glucose Oxyhemoglobin Carboxyhemoglobin Sodium Potassium 2.9 L* D Chloride 94.4 L Carbon Dioxide 37 H BUN Creatinine 0.2 L Glucose 166 H POC Glucose 122 H Lactic Acid Calcium Magnesium Ferritin Total Bilirubin Direct Bilirubin AST ALT Alkaline Phosphatase Lactate Dehydrogenase C-Reactive Protein Total Protein Albumin Triglycerides Lipase Arterial Blood Glucose Arterial Blood Ionized Calcium Urine WBC (Auto) Coronavirus (PCR) SARS-CoV-2 IgG Ab Crossmatch 07/13/20 07/13/20 07/13/20 11:54 13:52 17:40 WBC RBC Hgb Hct MCV MCH MCHC RDW Lymph % (Auto) [place] % (Auto) Lymph # (Auto) [place] # (Auto) Baso # (Auto) Seg Neutrophils % Seg Neuts % (Manual) Lymphocytes % (Manual) Nucleated RBC % Seg Neutrophils # Seg Neutrophils # Man Lymphocytes # (Manual) Monocytes # (Manual) Eosinophils # (Manual) PT INR APTT D-Dimer Heparin Anti-Xa Level ABG pH 7.477 H POC ABG pCO2 54.4 H POC ABG pO2 126.8 H ABG pO2 ABG HCO3 ABG O2 Saturation ABG Base Excess ABG Hemoglobin 11.5 L ABG Oxyhemoglobin ABG Sodium ABG Potassium 3.2 L ABG Chloride 92.0 L ABG Glucose 169 H Oxyhemoglobin Carboxyhemoglobin Sodium Potassium Chloride Carbon Dioxide BUN Creatinine Glucose POC Glucose 132 H 128 H Lactic Acid Calcium Magnesium Ferritin Total Bilirubin Direct Bilirubin AST ALT Alkaline Phosphatase Lactate Dehydrogenase C-Reactive Protein Total Protein Albumin Triglycerides Lipase Arterial Blood Glucose 169 H Arterial Blood Ionized Calcium Urine WBC (Auto) Coronavirus (PCR) SARS-CoV-2 IgG Ab Crossmatch 07/14/20 07/14/20 07/15/20 07:49 17:09 05:27 WBC RBC Hgb Hct MCV MCH MCHC RDW Lymph % (Auto) [place] % (Auto) Lymph # (Auto) [place] # (Auto) Baso # (Auto) Seg Neutrophils % Seg Neuts % (Manual) Lymphocytes % (Manual) Nucleated RBC % Seg Neutrophils # Seg Neutrophils # Man Lymphocytes # (Manual) Monocytes # (Manual) Eosinophils # (Manual) PT INR APTT D-Dimer Heparin Anti-Xa Level ABG pH POC ABG pCO2 POC ABG pO2 ABG pO2 ABG HCO3 ABG O2 Saturation ABG Base Excess ABG Hemoglobin ABG Oxyhemoglobin ABG Sodium ABG Potassium ABG Chloride ABG Glucose Oxyhemoglobin Carboxyhemoglobin Sodium Potassium 2.7 L* Chloride 94.0 L Carbon Dioxide 37 H BUN Creatinine 0.3 L Glucose 110 H POC Glucose 152 H 61 L Lactic Acid Calcium Magnesium Ferritin Total Bilirubin Direct Bilirubin AST ALT Alkaline Phosphatase Lactate Dehydrogenase C-Reactive Protein Total Protein Albumin Triglycerides Lipase Arterial Blood Glucose Arterial Blood Ionized Calcium Urine WBC (Auto) Coronavirus (PCR) SARS-CoV-2 IgG Ab Crossmatch 07/15/20 07/15/20 07/15/20 05:31 11:49 17:18 WBC RBC Hgb Hct MCV MCH MCHC RDW Lymph % (Auto) [place] % (Auto) Lymph # (Auto) [place] # (Auto) Baso # (Auto) Seg Neutrophils % Seg Neuts % (Manual) Lymphocytes % (Manual) Nucleated RBC % Seg Neutrophils # Seg Neutrophils # Man Lymphocytes # (Manual) Monocytes # (Manual) Eosinophils # (Manual) PT INR APTT D-Dimer Heparin Anti-Xa Level ABG pH POC ABG pCO2 POC ABG pO2 ABG pO2 ABG HCO3 ABG O2 Saturation ABG Base Excess ABG Hemoglobin ABG Oxyhemoglobin ABG Sodium ABG Potassium ABG Chloride ABG Glucose Oxyhemoglobin Carboxyhemoglobin Sodium Potassium 3.2 L Chloride 91.2 L Carbon Dioxide 33 H BUN Creatinine 0.3 L Glucose 139 H POC Glucose 148 H 196 H Lactic Acid Calcium Magnesium Ferritin Total Bilirubin Direct Bilirubin AST ALT Alkaline Phosphatase Lactate Dehydrogenase C-Reactive Protein Total Protein Albumin Triglycerides Lipase Arterial Blood Glucose Arterial Blood Ionized Calcium Urine WBC (Auto) Coronavirus (PCR) SARS-CoV-2 IgG Ab Crossmatch 07/15/20 07/16/20 07/16/20 23:08 05:18 05:19 WBC 11.3 H RBC 3.10 L Hgb 10.0 L Hct 30.3 L MCV 98 H MCH MCHC RDW 16.3 H Lymph % (Auto) [place] % (Auto) Lymph # (Auto) [place] # (Auto) Baso # (Auto) Seg Neutrophils % Seg Neuts % (Manual) Lymphocytes % (Manual) Nucleated RBC % Seg Neutrophils # Seg Neutrophils # Man Lymphocytes # (Manual) Monocytes # (Manual) Eosinophils # (Manual) PT INR APTT D-Dimer Heparin Anti-Xa Level ABG pH POC ABG pCO2 POC ABG pO2 ABG pO2 ABG HCO3 ABG O2 Saturation ABG Base Excess ABG Hemoglobin ABG Oxyhemoglobin ABG Sodium ABG Potassium ABG Chloride ABG Glucose Oxyhemoglobin Carboxyhemoglobin Sodium Potassium Chloride Carbon Dioxide BUN Creatinine Glucose POC Glucose 131 H 160 H Lactic Acid Calcium Magnesium Ferritin Total Bilirubin Direct Bilirubin AST ALT Alkaline Phosphatase Lactate Dehydrogenase C-Reactive Protein Total Protein Albumin Triglycerides Lipase Arterial Blood Glucose Arterial Blood Ionized Calcium Urine WBC (Auto) Coronavirus (PCR) SARS-CoV-2 IgG Ab Crossmatch 07/16/20 07/16/20 07/16/20 05:19 11:45 17:17 WBC RBC Hgb Hct MCV MCH MCHC RDW Lymph % (Auto) [place] % (Auto) Lymph # (Auto) [place] # (Auto) Baso # (Auto) Seg Neutrophils % Seg Neuts % (Manual) Lymphocytes % (Manual) Nucleated RBC % Seg Neutrophils # Seg Neutrophils # Man Lymphocytes # (Manual) Monocytes # (Manual) Eosinophils # (Manual) PT INR APTT D-Dimer Heparin Anti-Xa Level ABG pH POC ABG pCO2 POC ABG pO2 ABG pO2 ABG HCO3 ABG O2 Saturation ABG Base Excess ABG Hemoglobin ABG Oxyhemoglobin ABG Sodium ABG Potassium ABG Chloride ABG Glucose Oxyhemoglobin Carboxyhemoglobin Sodium 132 L Potassium 3.4 L Chloride 89.9 L Carbon Dioxide 39 H BUN Creatinine 0.3 L Glucose 174 H POC Glucose 169 H 143 H Lactic Acid Calcium Magnesium Ferritin Total Bilirubin Direct Bilirubin AST ALT Alkaline Phosphatase Lactate Dehydrogenase C-Reactive Protein Total Protein Albumin Triglycerides Lipase Arterial Blood Glucose Arterial Blood Ionized Calcium Urine WBC (Auto) Coronavirus (PCR) SARS-CoV-2 IgG Ab Crossmatch 07/16/20 07/17/20 07/17/20 23:54 05:32 11:26 WBC RBC Hgb Hct MCV MCH MCHC RDW Lymph % (Auto) [place] % (Auto) Lymph # (Auto) [place] # (Auto) Baso # (Auto) Seg Neutrophils % Seg Neuts % (Manual) Lymphocytes % (Manual) Nucleated RBC % Seg Neutrophils # Seg Neutrophils # Man Lymphocytes # (Manual) Monocytes # (Manual) Eosinophils # (Manual) PT INR APTT D-Dimer Heparin Anti-Xa Level ABG pH POC ABG pCO2 POC ABG pO2 ABG pO2 ABG HCO3 ABG O2 Saturation ABG Base Excess ABG Hemoglobin ABG Oxyhemoglobin ABG Sodium ABG Potassium ABG Chloride ABG Glucose Oxyhemoglobin Carboxyhemoglobin Sodium Potassium Chloride Carbon Dioxide BUN Creatinine Glucose POC Glucose 147 H 149 H 211 H Lactic Acid Calcium Magnesium Ferritin Total Bilirubin Direct Bilirubin AST ALT Alkaline Phosphatase Lactate Dehydrogenase C-Reactive Protein Total Protein Albumin Triglycerides Lipase Arterial Blood Glucose Arterial Blood Ionized Calcium Urine WBC (Auto) Coronavirus (PCR) SARS-CoV-2 IgG Ab Crossmatch 07/17/20 07/17/20 07/18/20 18:16 23:12 06:15 WBC RBC Hgb Hct MCV MCH MCHC RDW Lymph % (Auto) [place] % (Auto) Lymph # (Auto) [place] # (Auto) Baso # (Auto) Seg Neutrophils % Seg Neuts % (Manual) Lymphocytes % (Manual) Nucleated RBC % Seg Neutrophils # Seg Neutrophils # Man Lymphocytes # (Manual) Monocytes # (Manual) Eosinophils # (Manual) PT INR APTT D-Dimer Heparin Anti-Xa Level ABG pH POC ABG pCO2 POC ABG pO2 ABG pO2 ABG HCO3 ABG O2 Saturation ABG Base Excess ABG Hemoglobin ABG Oxyhemoglobin ABG Sodium ABG Potassium ABG Chloride ABG Glucose Oxyhemoglobin Carboxyhemoglobin Sodium Potassium Chloride Carbon Dioxide BUN Creatinine Glucose POC Glucose 161 H 136 H 108 H Lactic Acid Calcium Magnesium Ferritin Total Bilirubin Direct Bilirubin AST ALT Alkaline Phosphatase Lactate Dehydrogenase C-Reactive Protein Total Protein Albumin Triglycerides Lipase Arterial Blood Glucose Arterial Blood Ionized Calcium Urine WBC (Auto) Coronavirus (PCR) SARS-CoV-2 IgG Ab Crossmatch 07/18/20 07/18/20 07/18/20 08:47 08:47 11:50 WBC 17.7 H RBC 3.29 L Hgb 10.5 L Hct 31.8 L MCV 97 H MCH MCHC RDW 16.9 H Lymph % (Auto) [place] % (Auto) 8.6 H Lymph # (Auto) [place] # (Auto) 1.5 H Baso # (Auto) Seg Neutrophils % 74.6 H Seg Neuts % (Manual) Lymphocytes % (Manual) Nucleated RBC % Seg Neutrophils # 13.2 H Seg Neutrophils # Man Lymphocytes # (Manual) Monocytes # (Manual) Eosinophils # (Manual) PT INR APTT D-Dimer Heparin Anti-Xa Level ABG pH POC ABG pCO2 POC ABG pO2 ABG pO2 ABG HCO3 ABG O2 Saturation ABG Base Excess ABG Hemoglobin ABG Oxyhemoglobin ABG Sodium ABG Potassium ABG Chloride ABG Glucose Oxyhemoglobin Carboxyhemoglobin Sodium Potassium 2.8 L* Chloride 92.6 L Carbon Dioxide 40 H BUN Creatinine 0.3 L Glucose 177 H POC Glucose 178 H Lactic Acid Calcium Magnesium Ferritin Total Bilirubin Direct Bilirubin AST ALT Alkaline Phosphatase Lactate Dehydrogenase C-Reactive Protein Total Protein Albumin Triglycerides Lipase Arterial Blood Glucose Arterial Blood Ionized Calcium Urine WBC (Auto) Coronavirus (PCR) SARS-CoV-2 IgG Ab Crossmatch 07/18/20 07/18/20 07/19/20 17:18 23:33 05:22 WBC RBC Hgb Hct MCV MCH MCHC RDW Lymph % (Auto) [place] % (Auto) Lymph # (Auto) [place] # (Auto) Baso # (Auto) Seg Neutrophils % Seg Neuts % (Manual) Lymphocytes % (Manual) Nucleated RBC % Seg Neutrophils # Seg Neutrophils # Man Lymphocytes # (Manual) Monocytes # (Manual) Eosinophils # (Manual) PT INR APTT D-Dimer Heparin Anti-Xa Level ABG pH POC ABG pCO2 POC ABG pO2 ABG pO2 ABG HCO3 ABG O2 Saturation ABG Base Excess ABG Hemoglobin ABG Oxyhemoglobin ABG Sodium ABG Potassium ABG Chloride ABG Glucose Oxyhemoglobin Carboxyhemoglobin Sodium Potassium Chloride Carbon Dioxide BUN Creatinine Glucose POC Glucose 171 H 162 H 166 H Lactic Acid Calcium Magnesium Ferritin Total Bilirubin Direct Bilirubin AST ALT Alkaline Phosphatase Lactate Dehydrogenase C-Reactive Protein Total Protein Albumin Triglycerides Lipase Arterial Blood Glucose Arterial Blood Ionized Calcium Urine WBC (Auto) Coronavirus (PCR) SARS-CoV-2 IgG Ab Crossmatch 07/19/20 07/19/20 07/19/20 12:00 16:27 23:41 WBC RBC Hgb Hct MCV MCH MCHC RDW Lymph % (Auto) [place] % (Auto) Lymph # (Auto) [place] # (Auto) Baso # (Auto) Seg Neutrophils % Seg Neuts % (Manual) Lymphocytes % (Manual) Nucleated RBC % Seg Neutrophils # Seg Neutrophils # Man Lymphocytes # (Manual) Monocytes # (Manual) Eosinophils # (Manual) PT INR APTT D-Dimer Heparin Anti-Xa Level ABG pH POC ABG pCO2 POC ABG pO2 ABG pO2 ABG HCO3 ABG O2 Saturation ABG Base Excess ABG Hemoglobin ABG Oxyhemoglobin ABG Sodium ABG Potassium ABG Chloride ABG Glucose Oxyhemoglobin Carboxyhemoglobin Sodium Potassium Chloride Carbon Dioxide BUN Creatinine Glucose POC Glucose 201 H 205 H 106 H Lactic Acid Calcium Magnesium Ferritin Total Bilirubin Direct Bilirubin AST ALT Alkaline Phosphatase Lactate Dehydrogenase C-Reactive Protein Total Protein Albumin Triglycerides Lipase Arterial Blood Glucose Arterial Blood Ionized Calcium Urine WBC (Auto) Coronavirus (PCR) SARS-CoV-2 IgG Ab Crossmatch 07/20/20 07/20/20 07/20/20 05:28 11:18 17:30 WBC RBC Hgb Hct MCV MCH MCHC RDW Lymph % (Auto) [place] % (Auto) Lymph # (Auto) [place] # (Auto) Baso # (Auto) Seg Neutrophils % Seg Neuts % (Manual) Lymphocytes % (Manual) Nucleated RBC % Seg Neutrophils # Seg Neutrophils # Man Lymphocytes # (Manual) Monocytes # (Manual) Eosinophils # (Manual) PT INR APTT D-Dimer Heparin Anti-Xa Level ABG pH POC ABG pCO2 POC ABG pO2 ABG pO2 ABG HCO3 ABG O2 Saturation ABG Base Excess ABG Hemoglobin ABG Oxyhemoglobin ABG Sodium ABG Potassium ABG Chloride ABG Glucose Oxyhemoglobin Carboxyhemoglobin Sodium Potassium Chloride Carbon Dioxide BUN Creatinine Glucose POC Glucose 130 H 195 H 141 H Lactic Acid Calcium Magnesium Ferritin Total Bilirubin Direct Bilirubin AST ALT Alkaline Phosphatase Lactate Dehydrogenase C-Reactive Protein Total Protein Albumin Triglycerides Lipase Arterial Blood Glucose Arterial Blood Ionized Calcium Urine WBC (Auto) Coronavirus (PCR) SARS-CoV-2 IgG Ab Crossmatch 07/20/20 07/21/20 07/21/20 23:26 05:03 17:03 WBC RBC Hgb Hct MCV MCH MCHC RDW Lymph % (Auto) [place] % (Auto) Lymph # (Auto) [place] # (Auto) Baso # (Auto) Seg Neutrophils % Seg Neuts % (Manual) Lymphocytes % (Manual) Nucleated RBC % Seg Neutrophils # Seg Neutrophils # Man Lymphocytes # (Manual) Monocytes # (Manual) Eosinophils # (Manual) PT INR APTT D-Dimer Heparin Anti-Xa Level ABG pH POC ABG pCO2 POC ABG pO2 ABG pO2 ABG HCO3 ABG O2 Saturation ABG Base Excess ABG Hemoglobin ABG Oxyhemoglobin ABG Sodium ABG Potassium ABG Chloride ABG Glucose Oxyhemoglobin Carboxyhemoglobin Sodium Potassium Chloride Carbon Dioxide BUN Creatinine Glucose POC Glucose 116 H 142 H 181 H Lactic Acid Calcium Magnesium Ferritin Total Bilirubin Direct Bilirubin AST ALT Alkaline Phosphatase Lactate Dehydrogenase C-Reactive Protein Total Protein Albumin Triglycerides Lipase Arterial Blood Glucose Arterial Blood Ionized Calcium Urine WBC (Auto) Coronavirus (PCR) SARS-CoV-2 IgG Ab Crossmatch 07/21/20 07/22/20 07/22/20 23:51 06:09 11:40 WBC RBC Hgb Hct MCV MCH MCHC RDW Lymph % (Auto) [place] % (Auto) Lymph # (Auto) [place] # (Auto) Baso # (Auto) Seg Neutrophils % Seg Neuts % (Manual) Lymphocytes % (Manual) Nucleated RBC % Seg Neutrophils # Seg Neutrophils # Man Lymphocytes # (Manual) Monocytes # (Manual) Eosinophils # (Manual) PT INR APTT D-Dimer Heparin Anti-Xa Level ABG pH POC ABG pCO2 POC ABG pO2 ABG pO2 ABG HCO3 ABG O2 Saturation ABG Base Excess ABG Hemoglobin ABG Oxyhemoglobin ABG Sodium ABG Potassium ABG Chloride ABG Glucose Oxyhemoglobin Carboxyhemoglobin Sodium Potassium Chloride Carbon Dioxide BUN Creatinine Glucose POC Glucose 127 H 136 H 160 H Lactic Acid Calcium Magnesium Ferritin Total Bilirubin Direct Bilirubin AST ALT Alkaline Phosphatase Lactate Dehydrogenase C-Reactive Protein Total Protein Albumin Triglycerides Lipase Arterial Blood Glucose Arterial Blood Ionized Calcium Urine WBC (Auto) Coronavirus (PCR) SARS-CoV-2 IgG Ab Crossmatch 07/22/20 07/22/20 07/23/20 18:14 23:25 05:58 WBC 12.2 H RBC 3.44 L Hgb 10.9 L Hct 33.9 L MCV 99 H MCH MCHC RDW 16.9 H Lymph % (Auto) [place] % (Auto) 10.0 H Lymph # (Auto) [place] # (Auto) 1.2 H Baso # (Auto) Seg Neutrophils % Seg Neuts % (Manual) Lymphocytes % (Manual) Nucleated RBC % Seg Neutrophils # 8.3 H Seg Neutrophils # Man Lymphocytes # (Manual) Monocytes # (Manual) Eosinophils # (Manual) PT INR APTT D-Dimer Heparin Anti-Xa Level ABG pH POC ABG pCO2 POC ABG pO2 ABG pO2 ABG HCO3 ABG O2 Saturation ABG Base Excess ABG Hemoglobin ABG Oxyhemoglobin ABG Sodium ABG Potassium ABG Chloride ABG Glucose Oxyhemoglobin Carboxyhemoglobin Sodium Potassium Chloride Carbon Dioxide BUN Creatinine Glucose POC Glucose 189 H 164 H Lactic Acid Calcium Magnesium Ferritin Total Bilirubin Direct Bilirubin AST ALT Alkaline Phosphatase Lactate Dehydrogenase C-Reactive Protein Total Protein Albumin Triglycerides Lipase Arterial Blood Glucose Arterial Blood Ionized Calcium Urine WBC (Auto) Coronavirus (PCR) SARS-CoV-2 IgG Ab Crossmatch 07/23/20 07/23/20 07/23/20 05:58 06:02 12:14 WBC RBC Hgb Hct MCV MCH MCHC RDW Lymph % (Auto) [place] % (Auto) Lymph # (Auto) [place] # (Auto) Baso # (Auto) Seg Neutrophils % Seg Neuts % (Manual) Lymphocytes % (Manual) Nucleated RBC % Seg Neutrophils # Seg Neutrophils # Man Lymphocytes # (Manual) Monocytes # (Manual) Eosinophils # (Manual) PT INR APTT D-Dimer Heparin Anti-Xa Level ABG pH POC ABG pCO2 POC ABG pO2 ABG pO2 ABG HCO3 ABG O2 Saturation ABG Base Excess ABG Hemoglobin ABG Oxyhemoglobin ABG Sodium ABG Potassium ABG Chloride ABG Glucose Oxyhemoglobin Carboxyhemoglobin Sodium Potassium 2.9 L* Chloride 94.9 L Carbon Dioxide 33 H D BUN Creatinine 0.4 L Glucose 129 H POC Glucose 111 H 142 H Lactic Acid Calcium Magnesium Ferritin Total Bilirubin Direct Bilirubin AST ALT Alkaline Phosphatase Lactate Dehydrogenase C-Reactive Protein Total Protein Albumin 3.5 L Triglycerides Lipase Arterial Blood Glucose Arterial Blood Ionized Calcium Urine WBC (Auto) Coronavirus (PCR) SARS-CoV-2 IgG Ab Crossmatch 07/23/20 07/23/20 07/24/20 17:20 23:39 05:05 WBC 13.3 H RBC 3.40 L Hgb 10.8 L Hct 33.4 L MCV 98 H MCH MCHC RDW 16.7 H Lymph % (Auto) [place] % (Auto) 10.0 H Lymph # (Auto) [place] # (Auto) 1.3 H Baso # (Auto) Seg Neutrophils % Seg Neuts % (Manual) Lymphocytes % (Manual) Nucleated RBC % Seg Neutrophils # 9.0 H Seg Neutrophils # Man Lymphocytes # (Manual) Monocytes # (Manual) Eosinophils # (Manual) PT INR APTT D-Dimer Heparin Anti-Xa Level ABG pH POC ABG pCO2 POC ABG pO2 ABG pO2 ABG HCO3 ABG O2 Saturation ABG Base Excess ABG Hemoglobin ABG Oxyhemoglobin ABG Sodium ABG Potassium ABG Chloride ABG Glucose Oxyhemoglobin Carboxyhemoglobin Sodium Potassium Chloride Carbon Dioxide BUN Creatinine Glucose POC Glucose 150 H 120 H Lactic Acid Calcium Magnesium Ferritin Total Bilirubin Direct Bilirubin AST ALT Alkaline Phosphatase Lactate Dehydrogenase C-Reactive Protein Total Protein Albumin Triglycerides Lipase Arterial Blood Glucose Arterial Blood Ionized Calcium Urine WBC (Auto) Coronavirus (PCR) SARS-CoV-2 IgG Ab Crossmatch 07/24/20 07/24/20 07/24/20 05:05 05:39 11:30 WBC RBC Hgb Hct MCV MCH MCHC RDW Lymph % (Auto) [place] % (Auto) Lymph # (Auto) [place] # (Auto) Baso # (Auto) Seg Neutrophils % Seg Neuts % (Manual) Lymphocytes % (Manual) Nucleated RBC % Seg Neutrophils # Seg Neutrophils # Man Lymphocytes # (Manual) Monocytes # (Manual) Eosinophils # (Manual) PT INR APTT D-Dimer Heparin Anti-Xa Level ABG pH POC ABG pCO2 POC ABG pO2 ABG pO2 ABG HCO3 ABG O2 Saturation ABG Base Excess ABG Hemoglobin ABG Oxyhemoglobin ABG Sodium ABG Potassium ABG Chloride ABG Glucose Oxyhemoglobin Carboxyhemoglobin Sodium Potassium Chloride 97.4 L Carbon Dioxide BUN Creatinine 0.3 L Glucose 111 H POC Glucose 118 H 160 H Lactic Acid Calcium Magnesium Ferritin Total Bilirubin Direct Bilirubin AST ALT Alkaline Phosphatase Lactate Dehydrogenase C-Reactive Protein Total Protein Albumin Triglycerides Lipase Arterial Blood Glucose Arterial Blood Ionized Calcium Urine WBC (Auto) Coronavirus (PCR) SARS-CoV-2 IgG Ab Crossmatch 07/24/20 07/24/20 07/25/20 16:45 23:43 05:00 WBC RBC Hgb Hct MCV MCH MCHC RDW Lymph % (Auto) [place] % (Auto) Lymph # (Auto) [place] # (Auto) Baso # (Auto) Seg Neutrophils % Seg Neuts % (Manual) Lymphocytes % (Manual) Nucleated RBC % Seg Neutrophils # Seg Neutrophils # Man Lymphocytes # (Manual) Monocytes # (Manual) Eosinophils # (Manual) PT INR APTT D-Dimer Heparin Anti-Xa Level ABG pH POC ABG pCO2 POC ABG pO2 ABG pO2 ABG HCO3 ABG O2 Saturation ABG Base Excess ABG Hemoglobin ABG Oxyhemoglobin ABG Sodium ABG Potassium ABG Chloride ABG Glucose Oxyhemoglobin Carboxyhemoglobin Sodium Potassium Chloride Carbon Dioxide BUN Creatinine Glucose POC Glucose 181 H 122 H 114 H Lactic Acid Calcium Magnesium Ferritin Total Bilirubin Direct Bilirubin AST ALT Alkaline Phosphatase Lactate Dehydrogenase C-Reactive Protein Total Protein Albumin Triglycerides Lipase Arterial Blood Glucose Arterial Blood Ionized Calcium Urine WBC (Auto) Coronavirus (PCR) SARS-CoV-2 IgG Ab Crossmatch 07/25/20 07/25/20 07/25/20 11:44 16:44 23:41 WBC RBC Hgb Hct MCV MCH MCHC RDW Lymph % (Auto) [place] % (Auto) Lymph # (Auto) [place] # (Auto) Baso # (Auto) Seg Neutrophils % Seg Neuts % (Manual) Lymphocytes % (Manual) Nucleated RBC % Seg Neutrophils # Seg Neutrophils # Man Lymphocytes # (Manual) Monocytes # (Manual) Eosinophils # (Manual) PT INR APTT D-Dimer Heparin Anti-Xa Level ABG pH POC ABG pCO2 POC ABG pO2 ABG pO2 ABG HCO3 ABG O2 Saturation ABG Base Excess ABG Hemoglobin ABG Oxyhemoglobin ABG Sodium ABG Potassium ABG Chloride ABG Glucose Oxyhemoglobin Carboxyhemoglobin Sodium Potassium Chloride Carbon Dioxide BUN Creatinine Glucose POC Glucose 298 H 166 H 133 H Lactic Acid Calcium Magnesium Ferritin Total Bilirubin Direct Bilirubin AST ALT Alkaline Phosphatase Lactate Dehydrogenase C-Reactive Protein Total Protein Albumin Triglycerides Lipase Arterial Blood Glucose Arterial Blood Ionized Calcium Urine WBC (Auto) Coronavirus (PCR) SARS-CoV-2 IgG Ab Crossmatch 07/26/20 07/26/20 07/26/20 05:17 11:17 18:07 WBC RBC Hgb Hct MCV MCH MCHC RDW Lymph % (Auto) [place] % (Auto) Lymph # (Auto) [place] # (Auto) Baso # (Auto) Seg Neutrophils % Seg Neuts % (Manual) Lymphocytes % (Manual) Nucleated RBC % Seg Neutrophils # Seg Neutrophils # Man Lymphocytes # (Manual) Monocytes # (Manual) Eosinophils # (Manual) PT INR APTT D-Dimer Heparin Anti-Xa Level ABG pH POC ABG pCO2 POC ABG pO2 ABG pO2 ABG HCO3 ABG O2 Saturation ABG Base Excess ABG Hemoglobin ABG Oxyhemoglobin ABG Sodium ABG Potassium ABG Chloride ABG Glucose Oxyhemoglobin Carboxyhemoglobin Sodium Potassium Chloride Carbon Dioxide BUN Creatinine Glucose POC Glucose 113 H 157 H 154 H Lactic Acid Calcium Magnesium Ferritin Total Bilirubin Direct Bilirubin AST ALT Alkaline Phosphatase Lactate Dehydrogenase C-Reactive Protein Total Protein Albumin Triglycerides Lipase Arterial Blood Glucose Arterial Blood Ionized Calcium Urine WBC (Auto) Coronavirus (PCR) SARS-CoV-2 IgG Ab Crossmatch 07/26/20 07/27/20 07/27/20 23:44 08:26 08:26 WBC RBC 3.63 L Hgb Hct MCV 98 H MCH MCHC RDW 17.5 H Lymph % (Auto) [place] % (Auto) 10.6 H Lymph # (Auto) [place] # (Auto) 1.1 H Baso # (Auto) Seg Neutrophils % Seg Neuts % (Manual) Lymphocytes % (Manual) Nucleated RBC % Seg Neutrophils # Seg Neutrophils # Man Lymphocytes # (Manual) Monocytes # (Manual) Eosinophils # (Manual) PT INR APTT D-Dimer Heparin Anti-Xa Level ABG pH POC ABG pCO2 POC ABG pO2 ABG pO2 ABG HCO3 ABG O2 Saturation ABG Base Excess ABG Hemoglobin ABG Oxyhemoglobin ABG Sodium ABG Potassium ABG Chloride ABG Glucose Oxyhemoglobin Carboxyhemoglobin Sodium Potassium Chloride 97.9 L Carbon Dioxide 37 H D BUN Creatinine 0.4 L Glucose 115 H POC Glucose 148 H Lactic Acid Calcium Magnesium Ferritin Total Bilirubin Direct Bilirubin AST ALT Alkaline Phosphatase Lactate Dehydrogenase C-Reactive Protein Total Protein Albumin Triglycerides Lipase Arterial Blood Glucose Arterial Blood Ionized Calcium Urine WBC (Auto) Coronavirus (PCR) SARS-CoV-2 IgG Ab Crossmatch 07/27/20 07/27/20 07/27/20 11:41 16:50 23:22 WBC RBC Hgb Hct MCV MCH MCHC RDW Lymph % (Auto) [place] % (Auto) Lymph # (Auto) [place] # (Auto) Baso # (Auto) Seg Neutrophils % Seg Neuts % (Manual) Lymphocytes % (Manual) Nucleated RBC % Seg Neutrophils # Seg Neutrophils # Man Lymphocytes # (Manual) Monocytes # (Manual) Eosinophils # (Manual) PT INR APTT D-Dimer Heparin Anti-Xa Level ABG pH POC ABG pCO2 POC ABG pO2 ABG pO2 ABG HCO3 ABG O2 Saturation ABG Base Excess ABG Hemoglobin ABG Oxyhemoglobin ABG Sodium ABG Potassium ABG Chloride ABG Glucose Oxyhemoglobin Carboxyhemoglobin Sodium Potassium Chloride Carbon Dioxide BUN Creatinine Glucose POC Glucose 169 H 132 H 120 H Lactic Acid Calcium Magnesium Ferritin Total Bilirubin Direct Bilirubin AST ALT Alkaline Phosphatase Lactate Dehydrogenase C-Reactive Protein Total Protein Albumin Triglycerides Lipase Arterial Blood Glucose Arterial Blood Ionized Calcium Urine WBC (Auto) Coronavirus (PCR) SARS-CoV-2 IgG Ab Crossmatch 07/28/20 07/29/20 07/29/20 17:39 14:14 16:32 WBC RBC Hgb Hct MCV MCH MCHC RDW Lymph % (Auto) [place] % (Auto) Lymph # (Auto) [place] # (Auto) Baso # (Auto) Seg Neutrophils % Seg Neuts % (Manual) Lymphocytes % (Manual) Nucleated RBC % Seg Neutrophils # Seg Neutrophils # Man Lymphocytes # (Manual) Monocytes # (Manual) Eosinophils # (Manual) PT INR APTT D-Dimer Heparin Anti-Xa Level ABG pH POC ABG pCO2 POC ABG pO2 ABG pO2 ABG HCO3 ABG O2 Saturation ABG Base Excess ABG Hemoglobin ABG Oxyhemoglobin ABG Sodium ABG Potassium ABG Chloride ABG Glucose Oxyhemoglobin Carboxyhemoglobin Sodium Potassium Chloride Carbon Dioxide BUN Creatinine Glucose POC Glucose 187 H 188 H 193 H Lactic Acid Calcium Magnesium Ferritin Total Bilirubin Direct Bilirubin AST ALT Alkaline Phosphatase Lactate Dehydrogenase C-Reactive Protein Total Protein Albumin Triglycerides Lipase Arterial Blood Glucose Arterial Blood Ionized Calcium Urine WBC (Auto) Coronavirus (PCR) SARS-CoV-2 IgG Ab Crossmatch 07/30/20 07/30/20 07/30/20 12:03 15:59 23:20 WBC RBC Hgb Hct MCV MCH MCHC RDW Lymph % (Auto) [place] % (Auto) Lymph # (Auto) [place] # (Auto) Baso # (Auto) Seg Neutrophils % Seg Neuts % (Manual) Lymphocytes % (Manual) Nucleated RBC % Seg Neutrophils # Seg Neutrophils # Man Lymphocytes # (Manual) Monocytes # (Manual) Eosinophils # (Manual) PT INR APTT D-Dimer Heparin Anti-Xa Level ABG pH POC ABG pCO2 POC ABG pO2 ABG pO2 ABG HCO3 ABG O2 Saturation ABG Base Excess ABG Hemoglobin ABG Oxyhemoglobin ABG Sodium ABG Potassium ABG Chloride ABG Glucose Oxyhemoglobin Carboxyhemoglobin Sodium Potassium Chloride Carbon Dioxide BUN Creatinine Glucose POC Glucose 133 H 191 H 144 H Lactic Acid Calcium Magnesium Ferritin Total Bilirubin Direct Bilirubin AST ALT Alkaline Phosphatase Lactate Dehydrogenase C-Reactive Protein Total Protein Albumin Triglycerides Lipase Arterial Blood Glucose Arterial Blood Ionized Calcium Urine WBC (Auto) Coronavirus (PCR) SARS-CoV-2 IgG Ab Crossmatch 07/31/20 07/31/20 07/31/20 05:28 12:01 16:43 WBC RBC Hgb Hct MCV MCH MCHC RDW Lymph % (Auto) [place] % (Auto) Lymph # (Auto) [place] # (Auto) Baso # (Auto) Seg Neutrophils % Seg Neuts % (Manual) Lymphocytes % (Manual) Nucleated RBC % Seg Neutrophils # Seg Neutrophils # Man Lymphocytes # (Manual) Monocytes # (Manual) Eosinophils # (Manual) PT INR APTT D-Dimer Heparin Anti-Xa Level ABG pH POC ABG pCO2 POC ABG pO2 ABG pO2 ABG HCO3 ABG O2 Saturation ABG Base Excess ABG Hemoglobin ABG Oxyhemoglobin ABG Sodium ABG Potassium ABG Chloride ABG Glucose Oxyhemoglobin Carboxyhemoglobin Sodium Potassium Chloride Carbon Dioxide BUN Creatinine Glucose POC Glucose 128 H 137 H 170 H Lactic Acid Calcium Magnesium Ferritin Total Bilirubin Direct Bilirubin AST ALT Alkaline Phosphatase Lactate Dehydrogenase C-Reactive Protein Total Protein Albumin Triglycerides Lipase Arterial Blood Glucose Arterial Blood Ionized Calcium Urine WBC (Auto) Coronavirus (PCR) SARS-CoV-2 IgG Ab Crossmatch 07/31/20 08/01/20 08/01/20 20:28 07:44 11:02 WBC RBC Hgb Hct MCV MCH MCHC RDW Lymph % (Auto) [place] % (Auto) Lymph # (Auto) [place] # (Auto) Baso # (Auto) Seg Neutrophils % Seg Neuts % (Manual) Lymphocytes % (Manual) Nucleated RBC % Seg Neutrophils # Seg Neutrophils # Man Lymphocytes # (Manual) Monocytes # (Manual) Eosinophils # (Manual) PT INR APTT D-Dimer Heparin Anti-Xa Level ABG pH POC ABG pCO2 POC ABG pO2 ABG pO2 ABG HCO3 ABG O2 Saturation ABG Base Excess ABG Hemoglobin ABG Oxyhemoglobin ABG Sodium ABG Potassium ABG Chloride ABG Glucose Oxyhemoglobin Carboxyhemoglobin Sodium Potassium Chloride Carbon Dioxide BUN Creatinine Glucose POC Glucose 142 H 111 H 137 H Lactic Acid Calcium Magnesium Ferritin Total Bilirubin Direct Bilirubin AST ALT Alkaline Phosphatase Lactate Dehydrogenase C-Reactive Protein Total Protein Albumin Triglycerides Lipase Arterial Blood Glucose Arterial Blood Ionized Calcium Urine WBC (Auto) Coronavirus (PCR) SARS-CoV-2 IgG Ab Crossmatch 08/01/20 08/01/20 08/02/20 15:46 20:46 05:55 WBC 12.4 H RBC Hgb Hct MCV 99 H MCH MCHC RDW 16.9 H Lymph % (Auto) [place] % (Auto) 9.7 H Lymph # (Auto) [place] # (Auto) 1.2 H Baso # (Auto) Seg Neutrophils % Seg Neuts % (Manual) Lymphocytes % (Manual) Nucleated RBC % Seg Neutrophils # 8.5 H Seg Neutrophils # Man Lymphocytes # (Manual) Monocytes # (Manual) Eosinophils # (Manual) PT INR APTT D-Dimer Heparin Anti-Xa Level ABG pH POC ABG pCO2 POC ABG pO2 ABG pO2 ABG HCO3 ABG O2 Saturation ABG Base Excess ABG Hemoglobin ABG Oxyhemoglobin ABG Sodium ABG Potassium ABG Chloride ABG Glucose Oxyhemoglobin Carboxyhemoglobin Sodium Potassium Chloride Carbon Dioxide BUN Creatinine Glucose POC Glucose 131 H 123 H Lactic Acid Calcium Magnesium Ferritin Total Bilirubin Direct Bilirubin AST ALT Alkaline Phosphatase Lactate Dehydrogenase C-Reactive Protein Total Protein Albumin Triglycerides Lipase Arterial Blood Glucose Arterial Blood Ionized Calcium Urine WBC (Auto) Coronavirus (PCR) SARS-CoV-2 IgG Ab Crossmatch 08/02/20 08/02/20 08/02/20 05:55 08:19 12:24 WBC RBC Hgb Hct MCV MCH MCHC RDW Lymph % (Auto) [place] % (Auto) Lymph # (Auto) [place] # (Auto) Baso # (Auto) Seg Neutrophils % Seg Neuts % (Manual) Lymphocytes % (Manual) Nucleated RBC % Seg Neutrophils # Seg Neutrophils # Man Lymphocytes # (Manual) Monocytes # (Manual) Eosinophils # (Manual) PT INR APTT D-Dimer Heparin Anti-Xa Level ABG pH POC ABG pCO2 POC ABG pO2 ABG pO2 ABG HCO3 ABG O2 Saturation ABG Base Excess ABG Hemoglobin ABG Oxyhemoglobin ABG Sodium ABG Potassium ABG Chloride ABG Glucose Oxyhemoglobin Carboxyhemoglobin Sodium Potassium 2.9 L* Chloride 96.5 L Carbon Dioxide 39 H BUN Creatinine 0.3 L Glucose 105 H POC Glucose 152 H 144 H Lactic Acid Calcium Magnesium Ferritin Total Bilirubin Direct Bilirubin AST ALT 118 H Alkaline Phosphatase Lactate Dehydrogenase C-Reactive Protein Total Protein Albumin 3.3 L Triglycerides Lipase Arterial Blood Glucose Arterial Blood Ionized Calcium Urine WBC (Auto) Coronavirus (PCR) SARS-CoV-2 IgG Ab Crossmatch 08/02/20 08/02/20 08/02/20 13:55 16:23 17:00 WBC RBC Hgb Hct MCV MCH MCHC RDW Lymph % (Auto) [place] % (Auto) Lymph # (Auto) [place] # (Auto) Baso # (Auto) Seg Neutrophils % Seg Neuts % (Manual) Lymphocytes % (Manual) Nucleated RBC % Seg Neutrophils # Seg Neutrophils # Man Lymphocytes # (Manual) Monocytes # (Manual) Eosinophils # (Manual) PT INR APTT D-Dimer Heparin Anti-Xa Level ABG pH POC ABG pCO2 POC ABG pO2 ABG pO2 ABG HCO3 ABG O2 Saturation ABG Base Excess ABG Hemoglobin ABG Oxyhemoglobin ABG Sodium ABG Potassium ABG Chloride ABG Glucose Oxyhemoglobin Carboxyhemoglobin Sodium Potassium 3.0 L Chloride Carbon Dioxide BUN Creatinine Glucose POC Glucose 142 H 193 H Lactic Acid Calcium Magnesium Ferritin Total Bilirubin Direct Bilirubin AST ALT Alkaline Phosphatase Lactate Dehydrogenase C-Reactive Protein Total Protein Albumin Triglycerides Lipase Arterial Blood Glucose Arterial Blood Ionized Calcium Urine WBC (Auto) Coronavirus (PCR) SARS-CoV-2 IgG Ab Crossmatch 08/02/20 08/03/20 08/03/20 21:21 05:18 08:05 WBC RBC Hgb Hct MCV MCH MCHC RDW Lymph % (Auto) [place] % (Auto) Lymph # (Auto) [place] # (Auto) Baso # (Auto) Seg Neutrophils % Seg Neuts % (Manual) Lymphocytes % (Manual) Nucleated RBC % Seg Neutrophils # Seg Neutrophils # Man Lymphocytes # (Manual) Monocytes # (Manual) Eosinophils # (Manual) PT INR APTT D-Dimer Heparin Anti-Xa Level ABG pH POC ABG pCO2 POC ABG pO2 ABG pO2 ABG HCO3 ABG O2 Saturation ABG Base Excess ABG Hemoglobin ABG Oxyhemoglobin ABG Sodium ABG Potassium ABG Chloride ABG Glucose Oxyhemoglobin Carboxyhemoglobin Sodium Potassium Chloride Carbon Dioxide 32 H D BUN Creatinine 0.4 L Glucose POC Glucose 161 H 107 H Lactic Acid Calcium Magnesium Ferritin Total Bilirubin Direct Bilirubin AST ALT Alkaline Phosphatase Lactate Dehydrogenase C-Reactive Protein Total Protein Albumin Triglycerides Lipase Arterial Blood Glucose Arterial Blood Ionized Calcium Urine WBC (Auto) Coronavirus (PCR) SARS-CoV-2 IgG Ab Crossmatch 08/03/20 08/03/20 08/04/20 12:03 20:20 07:46 WBC RBC Hgb Hct MCV MCH MCHC RDW Lymph % (Auto) [place] % (Auto) Lymph # (Auto) [place] # (Auto) Baso # (Auto) Seg Neutrophils % Seg Neuts % (Manual) Lymphocytes % (Manual) Nucleated RBC % Seg Neutrophils # Seg Neutrophils # Man Lymphocytes # (Manual) Monocytes # (Manual) Eosinophils # (Manual) PT INR APTT D-Dimer Heparin Anti-Xa Level ABG pH POC ABG pCO2 POC ABG pO2 ABG pO2 ABG HCO3 ABG O2 Saturation ABG Base Excess ABG Hemoglobin ABG Oxyhemoglobin ABG Sodium ABG Potassium ABG Chloride ABG Glucose Oxyhemoglobin Carboxyhemoglobin Sodium Potassium Chloride Carbon Dioxide BUN Creatinine Glucose POC Glucose 135 H 167 H 109 H Lactic Acid Calcium Magnesium Ferritin Total Bilirubin Direct Bilirubin AST ALT Alkaline Phosphatase Lactate Dehydrogenase C-Reactive Protein Total Protein Albumin Triglycerides Lipase Arterial Blood Glucose Arterial Blood Ionized Calcium Urine WBC (Auto) Coronavirus (PCR) SARS-CoV-2 IgG Ab Crossmatch 08/04/20 08/04/20 08/04/20 11:54 16:48 20:39 WBC RBC Hgb Hct MCV MCH MCHC RDW Lymph % (Auto) [place] % (Auto) Lymph # (Auto) [place] # (Auto) Baso # (Auto) Seg Neutrophils % Seg Neuts % (Manual) Lymphocytes % (Manual) Nucleated RBC % Seg Neutrophils # Seg Neutrophils # Man Lymphocytes # (Manual) Monocytes # (Manual) Eosinophils # (Manual) PT INR APTT D-Dimer Heparin Anti-Xa Level ABG pH POC ABG pCO2 POC ABG pO2 ABG pO2 ABG HCO3 ABG O2 Saturation ABG Base Excess ABG Hemoglobin ABG Oxyhemoglobin ABG Sodium ABG Potassium ABG Chloride ABG Glucose Oxyhemoglobin Carboxyhemoglobin Sodium Potassium Chloride Carbon Dioxide BUN Creatinine Glucose POC Glucose 133 H 150 H 139 H Lactic Acid Calcium Magnesium Ferritin Total Bilirubin Direct Bilirubin AST ALT Alkaline Phosphatase Lactate Dehydrogenase C-Reactive Protein Total Protein Albumin Triglycerides Lipase Arterial Blood Glucose Arterial Blood Ionized Calcium Urine WBC (Auto) Coronavirus (PCR) SARS-CoV-2 IgG Ab Crossmatch 08/05/20 08/05/20 08/05/20 07:45 11:36 16:09 WBC RBC Hgb Hct MCV MCH MCHC RDW Lymph % (Auto) [place] % (Auto) Lymph # (Auto) [place] # (Auto) Baso # (Auto) Seg Neutrophils % Seg Neuts % (Manual) Lymphocytes % (Manual) Nucleated RBC % Seg Neutrophils # Seg Neutrophils # Man Lymphocytes # (Manual) Monocytes # (Manual) Eosinophils # (Manual) PT INR APTT D-Dimer Heparin Anti-Xa Level ABG pH POC ABG pCO2 POC ABG pO2 ABG pO2 ABG HCO3 ABG O2 Saturation ABG Base Excess ABG Hemoglobin ABG Oxyhemoglobin ABG Sodium ABG Potassium ABG Chloride ABG Glucose Oxyhemoglobin Carboxyhemoglobin Sodium Potassium Chloride Carbon Dioxide BUN Creatinine Glucose POC Glucose 115 H 112 H 118 H Lactic Acid Calcium Magnesium Ferritin Total Bilirubin Direct Bilirubin AST ALT Alkaline Phosphatase Lactate Dehydrogenase C-Reactive Protein Total Protein Albumin Triglycerides Lipase Arterial Blood Glucose Arterial Blood Ionized Calcium Urine WBC (Auto) Coronavirus (PCR) SARS-CoV-2 IgG Ab Crossmatch 08/05/20 08/06/20 08/06/20 22:06 11:09 16:51 WBC RBC Hgb Hct MCV MCH MCHC RDW Lymph % (Auto) [place] % (Auto) Lymph # (Auto) [place] # (Auto) Baso # (Auto) Seg Neutrophils % Seg Neuts % (Manual) Lymphocytes % (Manual) Nucleated RBC % Seg Neutrophils # Seg Neutrophils # Man Lymphocytes # (Manual) Monocytes # (Manual) Eosinophils # (Manual) PT INR APTT D-Dimer Heparin Anti-Xa Level ABG pH POC ABG pCO2 POC ABG pO2 ABG pO2 ABG HCO3 ABG O2 Saturation ABG Base Excess ABG Hemoglobin ABG Oxyhemoglobin ABG Sodium ABG Potassium ABG Chloride ABG Glucose Oxyhemoglobin Carboxyhemoglobin Sodium Potassium Chloride Carbon Dioxide BUN Creatinine Glucose POC Glucose 120 H 125 H 135 H Lactic Acid Calcium Magnesium Ferritin Total Bilirubin Direct Bilirubin AST ALT Alkaline Phosphatase Lactate Dehydrogenase C-Reactive Protein Total Protein Albumin Triglycerides Lipase Arterial Blood Glucose Arterial Blood Ionized Calcium Urine WBC (Auto) Coronavirus (PCR) SARS-CoV-2 IgG Ab Crossmatch 08/06/20 08/07/20 08/07/20 20:21 08:15 12:46 WBC RBC Hgb Hct MCV MCH MCHC RDW Lymph % (Auto) [place] % (Auto) Lymph # (Auto) [place] # (Auto) Baso # (Auto) Seg Neutrophils % Seg Neuts % (Manual) Lymphocytes % (Manual) Nucleated RBC % Seg Neutrophils # Seg Neutrophils # Man Lymphocytes # (Manual) Monocytes # (Manual) Eosinophils # (Manual) PT INR APTT D-Dimer Heparin Anti-Xa Level ABG pH POC ABG pCO2 POC ABG pO2 ABG pO2 ABG HCO3 ABG O2 Saturation ABG Base Excess ABG Hemoglobin ABG Oxyhemoglobin ABG Sodium ABG Potassium ABG Chloride ABG Glucose Oxyhemoglobin Carboxyhemoglobin Sodium Potassium Chloride Carbon Dioxide BUN Creatinine Glucose POC Glucose 127 H 120 H 113 H Lactic Acid Calcium Magnesium Ferritin Total Bilirubin Direct Bilirubin AST ALT Alkaline Phosphatase Lactate Dehydrogenase C-Reactive Protein Total Protein Albumin Triglycerides Lipase Arterial Blood Glucose Arterial Blood Ionized Calcium Urine WBC (Auto) Coronavirus (PCR) SARS-CoV-2 IgG Ab Crossmatch 08/07/20 08/07/20 08/08/20 16:38 21:30 07:40 WBC RBC Hgb Hct MCV MCH MCHC RDW Lymph % (Auto) [place] % (Auto) Lymph # (Auto) [place] # (Auto) Baso # (Auto) Seg Neutrophils % Seg Neuts % (Manual) Lymphocytes % (Manual) Nucleated RBC % Seg Neutrophils # Seg Neutrophils # Man Lymphocytes # (Manual) Monocytes # (Manual) Eosinophils # (Manual) PT INR APTT D-Dimer Heparin Anti-Xa Level ABG pH POC ABG pCO2 POC ABG pO2 ABG pO2 ABG HCO3 ABG O2 Saturation ABG Base Excess ABG Hemoglobin ABG Oxyhemoglobin ABG Sodium ABG Potassium ABG Chloride ABG Glucose Oxyhemoglobin Carboxyhemoglobin Sodium Potassium Chloride Carbon Dioxide BUN Creatinine Glucose POC Glucose 119 H 129 H 115 H Lactic Acid Calcium Magnesium Ferritin Total Bilirubin Direct Bilirubin AST ALT Alkaline Phosphatase Lactate Dehydrogenase C-Reactive Protein Total Protein Albumin Triglycerides Lipase Arterial Blood Glucose Arterial Blood Ionized Calcium Urine WBC (Auto) Coronavirus (PCR) SARS-CoV-2 IgG Ab Crossmatch 08/08/20 08/08/20 08/08/20 11:31 16:03 21:17 WBC RBC Hgb Hct MCV MCH MCHC RDW Lymph % (Auto) [place] % (Auto) Lymph # (Auto) [place] # (Auto) Baso # (Auto) Seg Neutrophils % Seg Neuts % (Manual) Lymphocytes % (Manual) Nucleated RBC % Seg Neutrophils # Seg Neutrophils # Man Lymphocytes # (Manual) Monocytes # (Manual) Eosinophils # (Manual) PT INR APTT D-Dimer Heparin Anti-Xa Level ABG pH POC ABG pCO2 POC ABG pO2 ABG pO2 ABG HCO3 ABG O2 Saturation ABG Base Excess ABG Hemoglobin ABG Oxyhemoglobin ABG Sodium ABG Potassium ABG Chloride ABG Glucose Oxyhemoglobin Carboxyhemoglobin Sodium Potassium Chloride Carbon Dioxide BUN Creatinine Glucose POC Glucose 117 H 113 H 132 H Lactic Acid Calcium Magnesium Ferritin Total Bilirubin Direct Bilirubin AST ALT Alkaline Phosphatase Lactate Dehydrogenase C-Reactive Protein Total Protein Albumin Triglycerides Lipase Arterial Blood Glucose Arterial Blood Ionized Calcium Urine WBC (Auto) Coronavirus (PCR) SARS-CoV-2 IgG Ab Crossmatch 08/09/20 08/09/20 08/09/20 11:53 16:53 21:39 WBC RBC Hgb Hct MCV MCH MCHC RDW Lymph % (Auto) [place] % (Auto) Lymph # (Auto) [place] # (Auto) Baso # (Auto) Seg Neutrophils % Seg Neuts % (Manual) Lymphocytes % (Manual) Nucleated RBC % Seg Neutrophils # Seg Neutrophils # Man Lymphocytes # (Manual) Monocytes # (Manual) Eosinophils # (Manual) PT INR APTT D-Dimer Heparin Anti-Xa Level ABG pH POC ABG pCO2 POC ABG pO2 ABG pO2 ABG HCO3 ABG O2 Saturation ABG Base Excess ABG Hemoglobin ABG Oxyhemoglobin ABG Sodium ABG Potassium ABG Chloride ABG Glucose Oxyhemoglobin Carboxyhemoglobin Sodium Potassium Chloride Carbon Dioxide BUN Creatinine Glucose POC Glucose 131 H 153 H 114 H Lactic Acid Calcium Magnesium Ferritin Total Bilirubin Direct Bilirubin AST ALT Alkaline Phosphatase Lactate Dehydrogenase C-Reactive Protein Total Protein Albumin Triglycerides Lipase Arterial Blood Glucose Arterial Blood Ionized Calcium Urine WBC (Auto) Coronavirus (PCR) SARS-CoV-2 IgG Ab Crossmatch 08/10/20 08/10/20 08/10/20 07:58 11:57 16:53 WBC RBC Hgb Hct MCV MCH MCHC RDW Lymph % (Auto) [place] % (Auto) Lymph # (Auto) [place] # (Auto) Baso # (Auto) Seg Neutrophils % Seg Neuts % (Manual) Lymphocytes % (Manual) Nucleated RBC % Seg Neutrophils # Seg Neutrophils # Man Lymphocytes # (Manual) Monocytes # (Manual) Eosinophils # (Manual) PT INR APTT D-Dimer Heparin Anti-Xa Level ABG pH POC ABG pCO2 POC ABG pO2 ABG pO2 ABG HCO3 ABG O2 Saturation ABG Base Excess ABG Hemoglobin ABG Oxyhemoglobin ABG Sodium ABG Potassium ABG Chloride ABG Glucose Oxyhemoglobin Carboxyhemoglobin Sodium Potassium Chloride Carbon Dioxide BUN Creatinine Glucose POC Glucose 106 H 139 H 140 H Lactic Acid Calcium Magnesium Ferritin Total Bilirubin Direct Bilirubin AST ALT Alkaline Phosphatase Lactate Dehydrogenase C-Reactive Protein Total Protein Albumin Triglycerides Lipase Arterial Blood Glucose Arterial Blood Ionized Calcium Urine WBC (Auto) Coronavirus (PCR) SARS-CoV-2 IgG Ab Crossmatch 08/10/20 08/11/20 08/11/20 20:45 12:07 15:58 WBC RBC Hgb Hct MCV MCH MCHC RDW Lymph % (Auto) [place] % (Auto) Lymph # (Auto) [place] # (Auto) Baso # (Auto) Seg Neutrophils % Seg Neuts % (Manual) Lymphocytes % (Manual) Nucleated RBC % Seg Neutrophils # Seg Neutrophils # Man Lymphocytes # (Manual) Monocytes # (Manual) Eosinophils # (Manual) PT INR APTT D-Dimer Heparin Anti-Xa Level ABG pH POC ABG pCO2 POC ABG pO2 ABG pO2 ABG HCO3 ABG O2 Saturation ABG Base Excess ABG Hemoglobin ABG Oxyhemoglobin ABG Sodium ABG Potassium ABG Chloride ABG Glucose Oxyhemoglobin Carboxyhemoglobin Sodium Potassium Chloride Carbon Dioxide BUN Creatinine Glucose POC Glucose 161 H 114 H 133 H Lactic Acid Calcium Magnesium Ferritin Total Bilirubin Direct Bilirubin AST ALT Alkaline Phosphatase Lactate Dehydrogenase C-Reactive Protein Total Protein Albumin Triglycerides Lipase Arterial Blood Glucose Arterial Blood Ionized Calcium Urine WBC (Auto) Coronavirus (PCR) SARS-CoV-2 IgG Ab Crossmatch 08/11/20 08/11/20 08/12/20 18:43 20:45 07:46 WBC RBC Hgb Hct MCV MCH MCHC RDW Lymph % (Auto) [place] % (Auto) Lymph # (Auto) [place] # (Auto) Baso # (Auto) Seg Neutrophils % Seg Neuts % (Manual) Lymphocytes % (Manual) Nucleated RBC % Seg Neutrophils # Seg Neutrophils # Man Lymphocytes # (Manual) Monocytes # (Manual) Eosinophils # (Manual) PT INR APTT D-Dimer Heparin Anti-Xa Level ABG pH POC ABG pCO2 51.0 H POC ABG pO2 ABG pO2 ABG HCO3 ABG O2 Saturation ABG Base Excess ABG Hemoglobin ABG Oxyhemoglobin ABG Sodium ABG Potassium ABG Chloride ABG Glucose 149 H Oxyhemoglobin Carboxyhemoglobin Sodium Potassium Chloride Carbon Dioxide BUN Creatinine Glucose POC Glucose 111 H 112 H Lactic Acid Calcium Magnesium Ferritin Total Bilirubin Direct Bilirubin AST ALT Alkaline Phosphatase Lactate Dehydrogenase C-Reactive Protein Total Protein Albumin Triglycerides Lipase Arterial Blood Glucose 149 H Arterial Blood Ionized Calcium Urine WBC (Auto) Coronavirus (PCR) SARS-CoV-2 IgG Ab Crossmatch 08/12/20 08/12/20 08/13/20 18:34 21:09 16:10 WBC RBC Hgb Hct MCV MCH MCHC RDW Lymph % (Auto) [place] % (Auto) Lymph # (Auto) [place] # (Auto) Baso # (Auto) Seg Neutrophils % Seg Neuts % (Manual) Lymphocytes % (Manual) Nucleated RBC % Seg Neutrophils # Seg Neutrophils # Man Lymphocytes # (Manual) Monocytes # (Manual) Eosinophils # (Manual) PT INR APTT D-Dimer Heparin Anti-Xa Level ABG pH POC ABG pCO2 POC ABG pO2 ABG pO2 ABG HCO3 ABG O2 Saturation ABG Base Excess ABG Hemoglobin ABG Oxyhemoglobin ABG Sodium ABG Potassium ABG Chloride ABG Glucose Oxyhemoglobin Carboxyhemoglobin Sodium Potassium Chloride 97.2 L Carbon Dioxide BUN Creatinine 0.5 L Glucose 132 H POC Glucose 120 H 140 H Lactic Acid Calcium Magnesium Ferritin Total Bilirubin Direct Bilirubin AST ALT Alkaline Phosphatase Lactate Dehydrogenase C-Reactive Protein Total Protein Albumin Triglycerides Lipase Arterial Blood Glucose Arterial Blood Ionized Calcium Urine WBC (Auto) Coronavirus (PCR) SARS-CoV-2 IgG Ab Crossmatch 08/13/20 08/14/20 08/14/20 21:16 11:20 16:14 WBC RBC Hgb Hct MCV MCH MCHC RDW Lymph % (Auto) Wake % (Auto) Lymph # (Auto) Wake # (Auto) Baso # (Auto) Seg Neutrophils % Seg Neuts % (Manual) Lymphocytes % (Manual) Nucleated RBC % Seg Neutrophils # Seg Neutrophils # Man Lymphocytes # (Manual) Monocytes # (Manual) Eosinophils # (Manual) PT INR APTT D-Dimer Heparin Anti-Xa Level ABG pH POC ABG pCO2 POC ABG pO2 ABG pO2 ABG HCO3 ABG O2 Saturation ABG Base Excess ABG Hemoglobin ABG Oxyhemoglobin ABG Sodium ABG Potassium ABG Chloride ABG Glucose Oxyhemoglobin Carboxyhemoglobin Sodium Potassium Chloride Carbon Dioxide BUN Creatinine Glucose POC Glucose 163 H 109 H 118 H Lactic Acid Calcium Magnesium Ferritin Total Bilirubin Direct Bilirubin AST ALT Alkaline Phosphatase Lactate Dehydrogenase C-Reactive Protein Total Protein Albumin Triglycerides Lipase Arterial Blood Glucose Arterial Blood Ionized Calcium Urine WBC (Auto) Coronavirus (PCR) SARS-CoV-2 IgG Ab Crossmatch 08/14/20 20:11 WBC RBC Hgb Hct MCV MCH MCHC RDW Lymph % (Auto) Wake % (Auto) Lymph # (Auto) Wake # (Auto) Baso # (Auto) Seg Neutrophils % Seg Neuts % (Manual) Lymphocytes % (Manual) Nucleated RBC % Seg Neutrophils # Seg Neutrophils # Man Lymphocytes # (Manual) Monocytes # (Manual) Eosinophils # (Manual) PT INR APTT D-Dimer Heparin Anti-Xa Level ABG pH POC ABG pCO2 POC ABG pO2 ABG pO2 ABG HCO3 ABG O2 Saturation ABG Base Excess ABG Hemoglobin ABG Oxyhemoglobin ABG Sodium ABG Potassium ABG Chloride ABG Glucose Oxyhemoglobin Carboxyhemoglobin Sodium Potassium Chloride Carbon Dioxide BUN Creatinine Glucose POC Glucose 139 H Lactic Acid Calcium Magnesium Ferritin Total Bilirubin Direct Bilirubin AST ALT Alkaline Phosphatase Lactate Dehydrogenase C-Reactive Protein Total Protein Albumin Triglycerides Lipase Arterial Blood Glucose Arterial Blood Ionized Calcium Urine WBC (Auto) Coronavirus (PCR) SARS-CoV-2 IgG Ab Crossmatch Allied health notes reviewed: nursing
--- NOTE | 2020-08-15 15:41 | Progress Note ---
Assessment and Plan Assessment and Plan Positive COVID-19 test; 05/10/2020 Negative COVID-19 test; 06/30/2020 --Acute hypoxemic resp failure; oxygen dependent on 4 L NC, requiring intermittent BiPAP Due to COVID-19 pneumonia --Persistent sinus tachycardia: Multifactorial We will closely monitor --Severe COVID-19 bilateral pneumonia Coronavirus protocol: Completed steroids and remdesivir therapy, isolation precautions, Received management per COVID-19 protocol Repeat ivory PCR test negative on 06/30/2020 Isolation discontinued --Pneumothorax status post right chest tube Chest tube removed 07/23/2020 Post removal chest x-ray no pneumothorax Patient is requiring 3 to 4 L nasal cannula And intermittent BiPAP --Severe hypokalemia; resolved --Elevated D-dimers; Patient had CTA chest ; negative for PE, patient already had lower extremity venous Doppler which was negative for DVT --Pseudomonas bacteremia; ID following, completed cefepime Monitor off antibiotics --Severe sepsis/septic shock, monitor off pressors Completed cefepime, monitor off antibiotics -- Acute kidney injury (SEN) , likely vasomotor nephropathy Resolved, avoid nephrotoxins --Acute on chronic anemia Guaiac test positive, GI evaluated the patient Patient H&H is normal range now Hb 11.8 -- Elevated liver function tests; resolved LFTs within normal limits --Colonic distention GI evaluated colonic distention resolved recommend stool softeners -- DVT prophylaxis On therapeutic Lovenox Chest tube removed Patient on 10 L nasal cannula oxygen, wean as tolerated Elevated D-dimers, on empiric therapeutic Lovenox CTA chest negative for PE,LE DVT negative, therapeutic Lovenox DC'd Changed to prophylactic Lovenox Discharge planning per case management CM reports that IRU is evaluating the patient for placement Patient is medically stable for discharge Disposition; IRU placement versus home with home health Subjective Date of service: 08/15/20 Principal diagnosis: Ac hypoxemic resp failure; COVID-19; Severe Sepsis; Shaggy PNA; Alcohol Abuse Interval history: Brief history and hospital course; Patient with pneumothorax status post chest tube placement and removal continues to require 4 to 5 L of nasal cannula oxygen, initially IRU placement was considered, insurance did not approve, daughter is trying for reconsideration for IRU placement, patient pending placement versus home with home health when stable 07/23/2020; patient remains on high flow oxygen, wean oxygen as tolerated, severe hypokalemia Replenish per protocol monitor levels 07/24/2020; patient had chest tube removal yesterday 07/23/2019 and, post removal chest x-ray no pneumothorax no acute abnormalities Patient feels slightly better continues to require high flow oxygen Wean as tolerated, physical and occupational therapy, DC planning 07/26/2020; patient on 3 L nasal cannula oxygen, patient feels better 07/27/2020; patient was saturating well on 3 L of nasal cannula oxygen, however today patient is on high flow oxygen 15 L Complains of some congestion, wean oxygen levels to 3-5 as tolerated Discharge planning LTAC has refused patient,Possible home with home health versus placement when medically stable 07/28/2020; continue to wean oxygen, patient is on 10 L, awaiting placement 07/29/2020; continues to be on 10 L nasal cannula oxygen, wean as tolerated Patient is on empiric therapeutic dose Lovenox, due to elevated D-dimers Patient is stable for CTA chest today, follow the report and adjust Lovenox as needed DC planning per case management, with pending placement 07/30/2020; patient feels slightly better, oxygen reduced to 8 L of nasal cannula Will check PT OT, pending placement 07/31/2020 :Patient on 8 L of nasal cannula oxygen 08/03/2020; patient's oxygen requirement has come down to 3-4 and half liters nasal cannula Will try to wean oxygen as tolerated, respiratory therapist assisting to reach the goal Possible discharge home in 1 to 2 days if stable Plan of care reviewed with the patient and his nurse 08/04/2020; patient is requiring 3 to 4 L nasal cannula oxygen, case management to set up home oxygen Patient is hemodynamically and clinically stable for discharge, pending [facility] ent IRU V[facility] And of care reviewed with the patient and his nurse as well as the case management 08/05/2020 ; COVID-19 test requested , patient is hemodynamically and clinically stable for discharge Patient is requiring 4 L of nasal cannula oxygen . medically stable for discharge 08/06/2020; patient is hemodynamically and clinically stable for discharge and transfer to IRU unit today Pre-discharge COVID-19 test is negative, pending insurance authorization 08/07/20; patient is accepted by inpatient rehab unit for admission, pending insurance authorization Stable for discharge 08/08/2020; patient is stable for discharge to inpatient rehab unit, pending insurance approval 08/09/2020; manager of case reports that insurance has not approved inpatient rehab placement for this patient Will evaluate for home oxygen, set up home oxygen if eligible, and plan discharge home with home health when patient is hemodynamically stable 08/10/2020; patient continues to have persistent tachycardia, and persistent hypoxia requiring 4 L of nasal cannula oxygen As well as intermittent BiPAP, continue current management 08/11/2020; patient continues to require oxygen and intermittent BiPAP, awaiting IRU placement Versus home with home health and home oxygen, DC planning per case management 08/12/2020; awaiting IRU placement versus home with home health on home oxygen 08/13/2020 through 08/15/2020 Awaiting placement History Interval history: I have seen and examined the patient at the bedside this morning Patient on room air Persistent tachycardia Patient feels tired Vital signs noted Objective - Constitutional Vitals: Vital Signs - 12hr 08/15/20 08/15/20 08/15/20 04:42 07:36 09:20 Temperature 98.0 F 98.0 F Pulse Rate 99 H 106 H Respiratory 20 16 18 Rate Blood Pressure 105/69 100/64 117/76 O2 Sat by Pulse 99 98 Oximetry 08/15/20 08/15/20 08/15/20 09:23 10:00 11:41 Temperature 98.1 F Pulse Rate 108 H 118 H Respiratory 18 18 Rate Blood Pressure 117/76 113/81 O2 Sat by Pulse 96 96 Oximetry General appearance: Present: no acute distress, well-nourished - EENT Eyes: PERRL, EOM intact ENT: hearing intact, clear oral mucosa Ears: bilateral: normal - Neck Neck: supple, normal ROM - Respiratory Respiratory effort: normal Respiratory: bilateral: CTA - Breasts Breasts: normal - Cardiovascular Heart rate: 78 Rhythm: regular Heart Sounds: Present: S1 & S2. Absent: gallop, rub Extremities: pulses intact, No edema, normal color, Full ROM - Gastrointestinal General gastrointestinal: Present: soft, non-tender, non-distended, normal bowel sounds - Genitourinary Male genitourinary: normal - Integumentary Integumentary: clear, warm, dry - Musculoskeletal Musculoskeletal: 1, strength equal bilaterally - Neurologic Neurologic: moves all extremities - Psychiatric Psychiatric: memory intact, appropriate mood/affect, intact judgment & insight - Labs CBC & Chem 7: 08/02/20 05:55 08/12/20 18:34 Labs: Abnormal lab results 08/14/20 08/14/20 08/14/20 Range/Units 11:20 16:14 20:11 POC Glucose 109 H 118 H 139 H (70-105) mg/dL 08/15/20 Range/Units 11:58 POC Glucose 120 H (70-105) mg/dL HEART Score - HEART Score Troponin: Troponin T 0.015 ng/mL (0.00-0.029) 07/07/20 10:00
[2020-08-15] MEDS: ENOXAPARIN 40 MG/0.4 ML INJ SUB-Q SCH (22:13)
[2020-08-16] MEDS: INSULIN LISPRO 100 UNIT/ML SUB-Q SCH ×5 (08:30→22:10)
[2020-08-16] MEDS: guaiFENesin ER 600 MG TAB PO SCH ×2 (09:21→22:10)
[2020-08-16] MEDS: METOPROLOL TARTRATE 25 MG TAB PO SCH ×2 (09:21→22:10)
[2020-08-16] MEDS: LANSOPRAZOLE 30 MG SOLUTAB FEEDTUBE SCH (09:21)
[2020-08-16] MEDS: QUEtiapine 200 MG TAB PO SCH (09:22)
[2020-08-16] MEDS: FOLIC ACID 1 MG TAB PO SCH (09:22)
[2020-08-16] MEDS: PHENobarbital 32.4 MG TAB PO SCH ×2 (09:22→22:09)
[2020-08-16] MEDS: ENOXAPARIN 40 MG/0.4 ML INJ SUB-Q SCH (22:10)
--- NOTE | 2020-08-17 06:40 | Progress Note ---
Assessment and Plan Assessment and Plan Positive COVID-19 test; 05/10/2020 Negative COVID-19 test; 06/30/2020 --Acute hypoxemic resp failure; oxygen dependent on 4 L NC, requiring intermittent BiPAP Due to COVID-19 pneumonia --Persistent sinus tachycardia: Multifactorial We will closely monitor --Severe COVID-19 bilateral pneumonia Coronavirus protocol: Completed steroids and remdesivir therapy, isolation precautions, Received management per COVID-19 protocol Repeat ivory PCR test negative on 06/30/2020 Isolation discontinued --Pneumothorax status post right chest tube Chest tube removed 07/23/2020 Post removal chest x-ray no pneumothorax Patient is requiring 3 to 4 L nasal cannula And intermittent BiPAP --Severe hypokalemia; resolved --Elevated D-dimers; Patient had CTA chest ; negative for PE, patient already had lower extremity venous Doppler which was negative for DVT --Pseudomonas bacteremia; ID following, completed cefepime Monitor off antibiotics --Severe sepsis/septic shock, monitor off pressors Completed cefepime, monitor off antibiotics -- Acute kidney injury (SEN) , likely vasomotor nephropathy Resolved, avoid nephrotoxins --Acute on chronic anemia Guaiac test positive, GI evaluated the patient Patient H&H is normal range now Hb 11.8 -- Elevated liver function tests; resolved LFTs within normal limits --Colonic distention GI evaluated colonic distention resolved recommend stool softeners -- DVT prophylaxis On therapeutic Lovenox Chest tube removed Patient on 10 L nasal cannula oxygen, wean as tolerated Elevated D-dimers, on empiric therapeutic Lovenox CTA chest negative for PE,LE DVT negative, therapeutic Lovenox DC'd Changed to prophylactic Lovenox Discharge planning per case management CM reports that IRU is evaluating the patient for placement Patient is medically stable for discharge Disposition; IRU placement versus home with home health Discussed with case management again today Case management to work on placement Placement issues Subjective Date of service: 08/16/20 Principal diagnosis: Ac hypoxemic resp failure; COVID-19; Severe Sepsis; Shaggy PNA; Alcohol Abuse Interval history: Brief history and hospital course; Patient with pneumothorax status post chest tube placement and removal continues to require 4 to 5 L of nasal cannula oxygen, initially IRU placement was considered, insurance did not approve, daughter is trying for reconsideration for IRU placement, patient pending placement versus home with home health when stable 07/23/2020; patient remains on high flow oxygen, wean oxygen as tolerated, severe hypokalemia Replenish per protocol monitor levels 07/24/2020; patient had chest tube removal yesterday 07/23/2019 and, post removal chest x-ray no pneumothorax no acute abnormalities Patient feels slightly better continues to require high flow oxygen Wean as tolerated, physical and occupational therapy, DC planning 07/26/2020; patient on 3 L nasal cannula oxygen, patient feels better 07/27/2020; patient was saturating well on 3 L of nasal cannula oxygen, however today patient is on high flow oxygen 15 L Complains of some congestion, wean oxygen levels to 3-5 as tolerated Discharge planning LTAC has refused patient,Possible home with home health versus placement when medically stable 07/28/2020; continue to wean oxygen, patient is on 10 L, awaiting placement 07/29/2020; continues to be on 10 L nasal cannula oxygen, wean as tolerated Patient is on empiric therapeutic dose Lovenox, due to elevated D-dimers Patient is stable for CTA chest today, follow the report and adjust Lovenox as needed DC planning per case management, with pending placement 07/30/2020; patient feels slightly better, oxygen reduced to 8 L of nasal cannula Will check PT OT, pending placement 07/31/2020 :Patient on 8 L of nasal cannula oxygen 08/03/2020; patient's oxygen requirement has come down to 3-4 and half liters nasal cannula Will try to wean oxygen as tolerated, respiratory therapist assisting to reach the goal Possible discharge home in 1 to 2 days if stable Plan of care reviewed with the patient and his nurse 08/04/2020; patient is requiring 3 to 4 L nasal cannula oxygen, case management to set up home oxygen Patient is hemodynamically and clinically stable for discharge, pending placement IRU Vs [facility] And of care reviewed with the patient and his nurse as well as the case man agement 08/05/2020 ; COVID-19 test requested , patient is hemodynamically and clinically stable for discharge Patient is requiring 4 L of nasal cannula oxygen . medically stable for discharge 08/06/2020; patient is hemodynamically and clinically stable for discharge and transfer to IRU unit today Pre-discharge COVID-19 test is negative, pending insurance authorization 08/07/20; patient is accepted by inpatient rehab unit for admission, pending insurance authorization Stable for discharge 08/08/2020; patient is stable for discharge to inpatient rehab unit, pending insurance approval 08/09/2020; porter sample case reports that insurance has not approved inpatient rehab placement for this patient Will evaluate for home oxygen, set up home oxygen if eligible, and plan discharge home with home health when patient is hemodynamically stable 08/10/2020; patient continues to have persistent tachycardia, and persistent hypoxia requiring 4 L of nasal cannula oxygen As well as intermittent BiPAP, continue current management 08/11/2020; patient continues to require oxygen and intermittent BiPAP, awaiting IRU placement Versus home with home health and home oxygen, DC planning per case management 08/12/2020; awaiting IRU placement versus home with home health on home oxygen 08/13/2020 through 08/14/2020 Patient awaiting transfer placement 08/14/2020 through 08/16/2020 Patient waiting for rehab placement Discussed with case management today again Objective - Constitutional Vitals: Vital Signs - 12hr 08/16/20 08/16/20 08/16/20 19:31 20:42 21:04 Temperature 98.2 F Pulse Rate 120 H 120 H Respiratory 19 Rate Blood Pressure 110/71 O2 Sat by Pulse 93 95 Oximetry 08/16/20 08/16/20 08/17/20 23:13 23:32 03:56 Temperature 98.8 F Pulse Rate 108 H 110 H 111 H Respiratory 19 22 22 Rate Blood Pressure 99/59 100/62 O2 Sat by Pulse 94 100 93 Oximetry 08/17/20 04:14 Temperature 97.5 F L Pulse Rate Respiratory Rate Blood Pressure O2 Sat by Pulse Oximetry General appearance: Present: no acute distress, well-nourished - EENT Eyes: PERRL, EOM intact ENT: hearing intact, clear oral mucosa Ears: bilateral: normal - Neck Neck: supple, normal ROM - Respiratory Respiratory effort: normal Respiratory: bilateral: CTA - Breasts Breasts: normal - Cardiovascular Heart rate: 78 Rhythm: regular Heart Sounds: Present: S1 & S2. Absent: gallop, rub Extremities: pulses intact, No edema, normal color, Full ROM - Gastrointestinal General gastrointestinal: Present: soft, non-tender, non-distended, normal bowel sounds - Genitourinary Male genitourinary: normal - Integumentary Integumentary: clear, warm, dry - Musculoskeletal Musculoskeletal: 1, strength equal bilaterally - Neurologic Neurologic: moves all extremities - Psychiatric Psychiatric: memory intact, appropriate mood/affect, intact judgment & insight - Labs CBC & Chem 7: 08/02/20 05:55 08/12/20 18:34 Labs: Abnormal lab results 08/16/20 08/16/20 08/16/20 Range/Units 12:02 15:14 20:25 POC Glucose 128 H 143 H 132 H (70-105) mg/dL HEART Score - HEART Score Troponin: Troponin T 0.015 ng/mL (0.00-0.029) 07/07/20 10:00
[2020-08-17] MEDS: INSULIN LISPRO 100 UNIT/ML SUB-Q SCH ×4 (07:54→21:13)
[2020-08-17] MEDS: FOLIC ACID 1 MG TAB PO SCH (09:23)
[2020-08-17] MEDS: guaiFENesin ER 600 MG TAB PO SCH ×2 (09:23→21:12)
[2020-08-17] MEDS: LANSOPRAZOLE 30 MG SOLUTAB FEEDTUBE SCH (09:23)
[2020-08-17] MEDS: PHENobarbital 32.4 MG TAB PO SCH ×2 (09:23→21:12)
[2020-08-17] MEDS: METOPROLOL TARTRATE 25 MG TAB PO SCH ×2 (09:25→21:12)
[2020-08-17] MEDS: QUEtiapine 200 MG TAB PO SCH (09:25)
--- NOTE | 2020-08-17 10:02 | Progress Note ---
Assessment and Plan Assessment and plan: Positive COVID-19 test; 05/10/2020 Negative COVID-19 test; 06/30/2020 --Acute hypoxemic resp failure; oxygen dependent on 4 L NC, requiring intermittent BiPAP Due to COVID-19 pneumonia --Persistent sinus tachycardia: Multifactorial We will closely monitor --Severe COVID-19 bilateral pneumonia Coronavirus protocol: Completed steroids and remdesivir therapy, isolation precautions, Received management per COVID-19 protocol Repeat ivory PCR test negative on 06/30/2020 Isolation discontinued --Pneumothorax status post right chest tube Chest tube removed 07/23/2020 Post removal chest x-ray no pneumothorax Patient is requiring 3 to 4 L nasal cannula And intermittent BiPAP --Severe hypokalemia; resolved --Elevated D-dimers; Patient had CTA chest ; negative for PE, patient already had lower extremity venous Doppler which was negative for DVT --Pseudomonas bacteremia; ID following, completed cefepime Monitor off antibiotics --Severe sepsis/septic shock, monitor off pressors Completed cefepime, monitor off antibiotics -- Acute kidney injury (SEN) , likely vasomotor nephropathy Resolved, avoid nephrotoxins --Acute on chronic anemia Guaiac test positive, GI evaluated the patient Patient H&H is normal range now Hb 11.8 -- Elevated liver function tests; resolved LFTs within normal limits --Colonic distention GI evaluated colonic distention resolved recommend stool softeners -- DVT prophylaxis On therapeutic Lovenox CTA chest negative for PE,LE DVT negative, therapeutic Lovenox DC'd Changed to prophylactic Lovenox Discharge planning per case management CM reports that IRU is evaluating the patient for placement Patient is medically stable for discharge Disposition; IRU placement versus home with home health Discussed with case management again today Case management asked me to do a peer to peer with insurance tomorrow History Interval history: I have seen and examined the patient at the bedside Patient's chart and medications reviewed Patient feels better requiring 3 to 4 L of nasal cannula oxygen Awaiting placement acute rehab versus home with home health Vital signs reviewed Hospitalist Physical - Constitutional Vitals: Temp Pulse Resp BP Pulse Ox 98.2 F 85 18 110/75 95 08/17/20 07:58 08/17/20 09:25 08/17/20 07:58 08/17/20 09:25 08/17/20 08:43 General appearance: Present: no acute distress, well-nourished - EENT Eyes: Present: PERRL, EOM intact - Neck Neck: Present: supple, normal ROM - Respiratory Respiratory effort: normal Respiratory: bilateral: diminished, negative: rales, rhonchi, wheezing - Cardiovascular Rhythm: regular Heart Sounds: Present: S1 & S2 - Extremities Extremities: no ischemia, No edema - Abdominal General gastrointestinal: soft, non-tender, non-distended, normal bowel sounds - Integumentary Integumentary: Present: clear, warm - Psychiatric Psychiatric: appropriate mood/affect, cooperative - Neurologic Neurologic: CNII-XII intact, moves all extremities HEART Score - HEART Score Troponin: Troponin T 0.015 ng/mL (0.00-0.029) 07/07/20 10:00 Results - Labs CBC & Chem 7: 08/02/20 05:55 08/12/20 18:34 Labs: Laboratory Last Values WBC 12.4 K/mm3 (4.5-11.0) H 08/02/20 05:55 RBC 3.85 M/mm3 (3.65-5.03) 08/02/20 05:55 Hgb 12.3 gm/dl (11.8-15.2) 08/02/20 05:55 Hct 37.9 % (35.5-45.6) 08/02/20 05:55 MCV 99 fl (84-94) H 08/02/20 05:55 MCH 32 pg (28-32) 08/02/20 05:55 MCHC 33 % (32-34) 08/02/20 05:55 RDW 16.9 % (13.2-15.2) H 08/02/20 05:55 Plt Count 267 K/mm3 (140-440) 08/02/20 05:55 Lymph % (Auto) 18.3 % (13.4-35.0) 08/02/20 05:55 Gila % (Auto) 9.7 % (0.0-7.3) H 08/02/20 05:55 Eos % (Auto) 3.3 % (0.0-4.3) 08/02/20 05:55 Baso % (Auto) 0.4 % (0.0-1.8) 08/02/20 05:55 Lymph # (Auto) 2.3 K/mm3 (1.2-5.4) 08/02/20 05:55 Gila # (Auto) 1.2 K/mm3 (0.0-0.8) H 08/02/20 05:55 Eos # (Auto) 0.4 K/mm3 (0.0-0.4) 08/02/20 05:55 Baso # (Auto) 0.1 K/mm3 (0.0-0.1) 08/02/20 05:55 Add Manual Diff Complete 07/13/20 08:31 Total Counted 100 07/13/20 08:31 Seg Neutrophils % 68.3 % (40.0-70.0) 08/02/20 05:55 Seg Neuts % (Manual) 96.0 % (40.0-70.0) H 07/13/20 08:31 Band Neutrophils % 0 % 07/13/20 08:31 Lymphocytes % (Manual) 2.0 % (13.4-35.0) L 07/13/20 08:31 Reactive Lymphs % (Man) 0 % 07/13/20 08:31 Monocytes % (Manual) 2.0 % (0.0-7.3) 07/13/20 08:31 Eosinophils % (Manual) 0 % (0.0-4.3) 07/13/20 08:31 Basophils % (Manual) 0 % (0.0-1.8) 07/13/20 08:31 Metamyelocytes % 0 % 07/13/20 08:31 Myelocytes % 0 % 07/13/20 08:31 Promyelocytes % 0 % 07/13/20 08:31 Blast Cells % 0 % 07/13/20 08:31 Nucleated RBC % Not Reportable 07/13/20 08:31 Seg Neutrophils # 8.5 K/mm3 (1.8-7.7) H 08/02/20 05:55 Seg Neutrophils # Man 20.4 K/mm3 (1.8-7.7) H 07/13/20 08:31 Band Neutrophils # 0.0 K/mm3 07/13/20 08:31 Lymphocytes # (Manual) 0.4 K/mm3 (1.2-5.4) L 07/13/20 08:31 Abs React Lymphs (Man) 0.0 K/mm3 07/13/20 08:31 Monocytes # (Manual) 0.4 K/mm3 (0.0-0.8) 07/13/20 08:31 Eosinophils # (Manual) 0.0 K/mm3 (0.0-0.4) 07/13/20 08:31 Basophils # (Manual) 0.0 K/mm3 (0.0-0.1) 07/13/20 08:31 Metamyelocytes # 0.0 K/mm3 07/13/20 08:31 Myelocytes # 0.0 K/mm3 07/13/20 08:31 Promyelocytes # 0.0 K/mm3 07/13/20 08:31 Blast Cells # 0.0 K/mm3 07/13/20 08:31 WBC Morphology Not Reportable 07/13/20 08:31 Hypersegmented Neuts Not Reportable 07/13/20 08:31 Hyposegmented Neuts Not Reportable 07/13/20 08:31 Hypogranular Neuts Not Reportable 07/13/20 08:31 Smudge Cells Not Reportable 07/13/20 08:31 Toxic Granulation Not Reportable 07/13/20 08:31 Toxic Vacuolation Not Reportable 07/13/20 08:31 Dohle Bodies Not Reportable 07/13/20 08:31 Pelger-Huet Anomaly Not Reportable 07/13/20 08:31 Jason Rods Not Reportable 07/13/20 08:31 Platelet Estimate Consistent w auto 07/13/20 08:31 Clumped Platelets Not Reportable 07/13/20 08:31 Plt Clumps, EDTA Not Reportable 07/13/20 08:31 Large Platelets Not Reportable 07/13/20 08:31 Giant Platelets Not Reportable 07/13/20 08:31 Platelet Satelliting Not Reportable 07/13/20 08:31 Plt Morphology Comment Not Reportable 07/13/20 08:31 RBC Morphology Not Reportable 07/13/20 08:31 Dimorphic RBCs Not Reportable 07/13/20 08:31 Polychromasia Not Reportable 07/13/20 08:31 Hypochromasia Not Reportable 07/13/20 08:31 Poikilocytosis Not Reportable 07/13/20 08:31 Anisocytosis Not Reportable 07/13/20 08:31 Microcytosis Not Reportable 07/13/20 08:31 Macrocytosis Not Reportable 07/13/20 08:31 Spherocytes Not Reportable 07/13/20 08:31 Pappenheimer Bodies Not Reportable 07/13/20 08:31 Sickle Cells Not Reportable 07/13/20 08:31 Target Cells Not Reportable 07/13/20 08:31 Tear Drop Cells Not Reportable 07/13/20 08:31 Ovalocytes Not Reportable 07/13/20 08:31 Stomatocytes Few 07/13/20 08:31 Helmet Cells Not Reportable 07/13/20 08:31 Sinclair-Edmond Bodies Not Reportable 07/13/20 08:31 Wildrose Rings Not Reportable 07/13/20 08:31 Izabella Cells Not Reportable 07/13/20 08:31 Bite Cells Not Reportable 07/13/20 08:31 Crenated Cell Not Reportable 07/13/20 08:31 Elliptocytes Not Reportable 07/13/20 08:31 Acanthocytes (Spur) Not Reportable 07/13/20 08:31 Rouleaux Not Reportable 07/13/20 08:31 Hemoglobin C Crystals Not Reportable 07/13/20 08:31 Schistocytes Not Reportable 07/13/20 08:31 Malaria parasites Not Reportable 07/13/20 08:31 Josue Bodies Not Reportable 07/13/20 08:31 Hem Pathologist Commnt No 07/13/20 08:31 PT 11.8 Sec. (12.2-14.9) L 06/22/20 14:29 INR 0.88 (0.87-1.13) 06/22/20 14:29 APTT 23.5 Sec. (24.2-36.6) L 06/22/20 14:29 D-Dimer 1887.82 ng/mlDDU (0-234) H 05/20/20 08:16 Heparin Anti-Xa Level 0.37 U.I./ml (0.3-0.7) 07/02/20 16:08 ABG pH 7.437 (7.320-7.450) 08/11/20 18:43 POC ABG pCO2 51.0 mmHg (32.0-48.0) H 08/11/20 18:43 ABG pCO2 53.1 mm Hg 07/08/20 Unknown POC ABG pO2 84.9 mmHg (83-108) 08/11/20 18:43 ABG pO2 75.3 mm Hg (80.0-90.0) L 07/08/20 Unknown POC ABG HCO3 33.6 08/11/20 18:43 ABG HCO3 34.3 mmol/L (20.0-26.0) H 07/08/20 Unknown ABG O2 Saturation 96.5 % (95.0-99.0) 07/08/20 Unknown ABG O2 Content 13.5 (0.0-44) 07/08/20 Unknown POC ABG Base Excess 7.9 08/11/20 18:43 ABG Base Excess 8.7 mmol/L (-2.0-3.0) H 07/08/20 Unknown ABG Hemoglobin 13.8 (12.0-17.5) 08/11/20 18:43 ABG Oxyhemoglobin 94.6 (94-98) 08/11/20 18:43 ABG Carboxyhemoglobin 2.4 % (0.0-5.0) 07/08/20 Unknown ABG Methemoglobin 0.3 (0.0-1.5) 08/11/20 18:43 ABG Sodium 138.0 mmol/L (136.0-145.0) 08/11/20 18:43 ABG Potassium 3.4 mmol/L (3.40-4.50) 08/11/20 18:43 ABG Chloride 99.0 mmol/L (98-107) 08/11/20 18:43 ABG Glucose 149 mg/dL (65-95) H 08/11/20 18:43 Oxyhemoglobin 93.7 % (95.0-99.0) L 07/08/20 Unknown Carboxyhemoglobin 1.2 (0.5-1.5) 08/11/20 18:43 FiO2 50.0 08/11/20 18:43 Sodium 139 mmol/L (137-145) 08/12/20 18:34 Potassium 3.7 mmol/L (3.6-5.0) 08/12/20 18:34 Chloride 97.2 mmol/L (98-107) L 08/12/20 18:34 Carbon Dioxide 28 mmol/L (22-30) 08/12/20 18:34 Anion Gap 18 mmol/L 08/12/20 18:34 BUN 15 mg/dL (9-20) 08/12/20 18:34 Creatinine 0.5 mg/dL (0.8-1.3) L 08/12/20 18:34 Estimated GFR > 60 ml/min 08/12/20 18:34 BUN/Creatinine Ratio 30 % 08/12/20 18:34 Glucose 132 mg/dL (75-100) H 08/12/20 18:34 POC Glucose 113 mg/dL (70-105) H 08/17/20 07:34 Lactic Acid 0.80 mmol/L (0.7-2.0) 07/13/20 15:45 Calcium 9.2 mg/dL (8.4-10.2) 08/12/20 18:34 Phosphorus 3.10 mg/dL (2.5-4.5) 06/15/20 04:00 Magnesium 2.00 mg/dL (1.7-2.3) 07/24/20 05:05 Ferritin 1496.0 ng/mL (30.0-300.0) H 06/14/20 11:50 Total Bilirubin 0.30 mg/dL (0.1-1.2) 08/02/20 05:55 Direct Bilirubin 0.6 mg/dL (0-0.2) H 05/11/20 07:30 Indirect Bilirubin 0.9 mg/dL 05/11/20 07:30 AST 37 units/L (5-40) 08/02/20 05:55 ALT 118 units/L (7-56) H 08/02/20 05:55 Alkaline Phosphatase 88 units/L (35-129) 08/02/20 05:55 Lactate Dehydrogenase 705 units/L (91-180) H 05/20/20 08:16 Troponin T 0.015 ng/mL (0.00-0.029) 07/07/20 10:00 C-Reactive Protein 3.10 mg/dL (0.00-1.30) H 05/20/20 08:16 Total Protein 6.4 g/dL (6.3-8.2) 08/02/20 05:55 Albumin 3.3 g/dL (3.9-5) L 08/02/20 05:55 Albumin/Globulin Ratio 1.1 % 08/02/20 05:55 Triglycerides 452 mg/dL (2-149) H 06/30/20 07:00 Lipase 86 units/L (13-60) H 06/29/20 09:36 Procalcitonin 2.15 ng/mL (<0.15) 07/15/20 05:31 Arterial Blood Glucose 149 mg/dL (65-95) H 08/11/20 18:43 Arterial Blood Ionized Calcium 4.8 mg/dL (4.6-5.3) 08/11/20 18:43 Urine Color Fauzia (Yellow) 05/10/20 Unknown Urine Turbidity Clear (Clear) 05/10/20 Unknown Urine pH 5.0 (5.0-7.0) 05/10/20 Unknown Ur Specific [place] 1.019 (1.003-1.030) 05/10/20 Unknown Urine Protein 100 mg/dl mg/dL (Negative) 05/10/20 Unknown Urine Glucose (UA) Neg mg/dL (Negative) 05/10/20 Unknown Urine Ketones Neg mg/dL (Negative) 05/10/20 Unknown Urine Blood Lg (Negative) 05/10/20 Unknown Urine Nitrite Neg (Negative) 05/10/20 Unknown Urine Bilirubin Neg (Negative) 05/10/20 Unknown Urine Urobilinogen 2.0 mg/dL (<2.0) 05/10/20 Unknown Ur Leukocyte Esterase Neg (Negative) 05/10/20 Unknown Urine WBC (Auto) 11.0 /HPF (0.0-6.0) H 05/10/20 Unknown Urine RBC (Auto) 2.0 /HPF (0.0-6.0) 05/10/20 Unknown U Epithel Cells (Auto) 1.0 /HPF (0-13.0) 05/10/20 Unknown Urine Bacteria (Auto) 1+ /HPF (Negative) 05/10/20 Unknown Urine Mucus Few /HPF 05/10/20 Unknown Plasma/Serum Alcohol < 0.01 % (0-0.07) 05/09/20 14:20 Coronavirus (PCR) Negative (Negative) 08/06/20 09:36 Hepatitis A Ab Total Nonreactive (Nonreactive) 07/09/20 Unknown Hep B Core Total Ab Nonreactive (Nonreactive) 07/09/20 Unknown Hepatitis C RNA Quant See scanned result 07/09/20 Unknown SARS-CoV-2 IgG Ab Reactive (NonReactive) A 05/11/20 07:30 Blood Type B POSITIVE 06/21/20 14:18 Antibody Screen Negative 06/21/20 14:18 Crossmatch See Detail 06/21/20 14:18 - Diagnostic Impressions Diagnostic Impressions: Echocardiogram 05/20/20 13:02 Transthoracic Echocardiogram Indication: CHF BP: 97/73 Conclusions *The study quality is technically very difficult and limited. *The left ventricular chamber size, wall thickness and systolic function are within normal limits. There are no wall motion abnormalities observed. Ejection fraction is normal. *The estimated ejection fraction is 60-65%. *The pericardium appears normal. Findings Procedure Info: The study quality is technically difficult. Left Ventricle: The left ventricular chamber size, wall thickness and systolic function are within normal limits. There are no wall motion abnormalities observed. Ejection fraction is normal. The estimated ejection fraction is 60-65%. Abnormal left ventricular diastolic filling is observed, consistent with impaired relaxation. Left Atrium: The left atrium is normal in size with no visual thrombus identified. Right Ventricle: The right ventricle is not well visualized. Right Atrium: The right atrium is not well visualized. Aortic Valve: The aortic valve is trileaflet. The leaflets are thin with normal excursion. There is no aortic stenosis or regurgitation present. Mitral Valve: The mitral valve appears normal in structure and function. Tricuspid Valve: The tricuspid valve appears normal in structure and function. Unable to estimate the right ventricular systolic pressure. Pulmonic Valve: The pulmonic valve is not well visualized. There is no evidence of pulmonic regurgitation. There is no pulmonic stenosis. Pericardium: The pericardium appears normal. Pulmonary Artery: The main pulmonary artery is not well visualized. Venous: The inferior vena cava appears normal in size. Measurements Chambers 2D Name Value Normal Range IVSd (2D) 0.83 cm (0.6 - 1.1) LVPWd (2D) 0.83 cm (0.6 - 1.1) LVIDd (2D) 3.88 cm (3.7 - 5.6) LVIDs (2D) 2.46 cm (2 - 3.8) LV FS (2D) 36.52 % - EF Teichholz (2D) 66.97 % - Ao root diameter (2D) 3.47 cm (2 - 3.7) Volumes/Mass Name Value Normal Range LA ESV SP 4CH (A/L) 22.4 ml - LA ESV SP 2CH (A/L) 22.89 ml - LA ESV BP (A/L) 23.06 ml - LA ESV SP 4CH (MOD) 21.09 ml - LA ESV SP 2CH (MOD) 22.44 ml - Diastolic/Systolic Function Name Value Normal Range MV E-wave Vmax 0.48 m/sec - MV deceleration time 156.3 msec - MV A-wave Vmax 0.59 m/sec - MV E:A ratio 0.81 ratio - Aortic Valve Name Value Normal Range AV Vmax 0.97 m/sec - AV VTI 14.49 cm - AV peak gradient 3.73 mmHg - AV mean gradient 1.89 mmHg - LVOT diameter 2.09 cm - LVOT Vmax 0.72 m/sec - LVOT VTI 10.21 cm - LVOT peak gradient 2.05 mmHg - LVOT mean gradient 1.03 mmHg - SV LVOT 35.17 ml - INNA (continuity Vmax) 2.55 cm2 - INNA (continuity VTI) 2.43 cm2 - Tricuspid Valve Name Value Normal Range TV E-wave Vmax 0.37 m/sec - Pulmonic Valve/Qp:Qs Name Value Normal Range PV Vmax 0.72 m/sec - PV peak gradient 2.06 mmHg - RVOT Vmax 0.85 m/sec - RVOT VTI 9.89 cm - RVOT peak gradient 2.9 mmHg - PV acceleration time 72.31 msec - Cantor/IV: Voiding Method Urinal IV Catheter Type [Right Wrist] INT / Saline Lock IV Catheter Type [Right Upper Peripheral IV arm] IV Catheter Type [Right CVL Internal Jugular] IV Catheter Type [Right Peripheral IV Forearm] IV Catheter Type [Left Forearm INT / Saline Lock ] IV Catheter Type [Left Wrist] INT / Saline Lock IV Catheter Type [Right Hand] INT / Saline Lock IV Catheter Type [Left Hand] INT / Saline Lock IV Catheter Type [Left Peripheral IV Antecubital] Active Medications - Current Medications Current Medications: Generic Name Dose Route Start Last Admin Trade Name Freq PRN Reason Stop Dose Admin Acetaminophen 650 mg 08/07/20 10:06 08/13/20 16:05 Acetaminophen 325 Mg Tab PO 650 mg Q4H PRN Administration Pain, Mild (1-3) Alprazolam 0.25 mg 05/20/20 17:53 07/26/20 09:37 Alprazolam 0.25 Mg Tab PO 0.25 mg Q8H PRN Administration Anxiety Lipase/Protease/Amylase 1 each 05/22/20 13:01 Lipase 10,500/Protease 25,000/Amylase 43,750 (Units) Dr Newell FEEDTUBE PRN PRN For Clogged Feeding Tube Bisacodyl 10 mg 07/14/20 11:00 Bisacodyl 10 Mg Rect Supp VA BID PRN Laxative Effect Enoxaparin Sodium 40 mg 07/29/20 22:00 08/16/20 22:10 Enoxaparin 40 Mg/0.4 Ml Inj SUB-Q 40 mg QDAY@2200 DESIRE Administration Protocol Folic Acid 1 mg 05/09/20 15:36 08/17/20 09:23 Folic Acid 1 Mg Tab PO 1 mg QDAY DESIRE Administration Guaifenesin 600 mg 07/19/20 23:00 08/17/20 09:23 Guaifenesin Er 600 Mg Tab PO 600 mg BID DESIRE Administration Hydrophilic Ointment 1 applic 05/21/20 20:33 Lip Therapy Vaseline TP Q2HR PRN Dry Lips Insulin Human Lispro 0 unit 07/31/20 07:30 08/17/20 07:54 Insulin Lispro 100 Unit/Ml SUB-Q Not Given ACHS [facility] Protocol Lansoprazole 30 mg 06/28/20 10:00 08/17/20 09:23 Lansoprazole 30 Mg Solutab FEEDTUBE 30 mg QDAY DESIRE Administration Metoprolol Tartrate 5 mg 07/02/20 17:17 08/13/20 14:44 Metoprolol Tartrate 5 Mg/5 Ml Inj IV 5 mg Q6HR PRN Administration Tachyarrhythmias Metoprolol Tartrate 25 mg 08/12/20 12:00 08/17/20 09:25 Metoprolol Tartrate 25 Mg Tab PO 25 mg BID DESIRE Administration Multi-Ingred Cream/Lotion/Oil/Oint 1 applic 05/21/20 20:33 Mineral Oil/Petrolatum, White Ophth Oint 3.5 Gm OU Q4HR PRN Dry Eye(s) Olanzapine 5 mg 07/17/20 22:00 08/16/20 22:09 Olanzapine 5 Mg Tab PO 5 mg QHS DESIRE Administration Phenobarbital 32.4 mg 07/04/20 22:00 08/17/20 09:23 Phenobarbital 32.4 Mg Tab PO 32.4 mg BID DESIRE Administration Pseudoephedrine/Acetam/Chlorphenir 10 ml 08/07/20 11:12 08/15/20 09:23 Guaifenesin/Codeine 100-10mg Oral Liqd 5 Ml PO 10 ml Q4H PRN Administration Cough Quetiapine Fumarate 200 mg 07/16/20 10:00 08/17/20 09:25 Quetiapine 200 Mg Tab PO 200 mg QAM DESIRE Administration Senna 17.2 mg 07/14/20 11:00 08/03/20 16:46 Sennosides 8.6 Mg Tab PO 8.6 mg BID PRN Administration Laxative Effect Nutrition/Malnutrition Assess - Dietary Evaluation Nutrition/Malnutrition Findings: Nutrition Notes Start: 05/17/20 14:10 Freq: Status: Active Protocol: Document 08/11/20 12:56 EN (Rec: 08/11/20 13:00 EN [id number]) Co-Sign 08/11/20 12:56 MK Nutrition Notes Initial or Follow up Reassessment Current Diagnosis Acute Kidney Injury,Decubitus( Pressure Ulcer),Sepsis, Respiratory Failure Other Pertinent Diagnosis Bilat pneu, COVID-19 (-), EtOH dependence Current Diet Regular diet Labs/Tests Reviewed Pertinent Medications Reviewed Height 6 ft Weight 96 kg [place] Body Weight (kg) 80.90 BMI 28.7 Weight Status Overweight Subjective/Other Information F/u for intakes, Sammy and ONS tolerance. Pt reports consuming 100% of meals with a good appetite. Pt denies N/V/ D. Pt states that he has been drinking 100% of ONS and receiving Sammy BID via diet [place]. Percent of energy/protein needs met: 100%/100% Burn Absent Trauma Absent GI Symptoms None Current % PO Good (75-100%) Minimum of two criteria Yes Interpretation of Weight Loss (severe) >5% in 1 month Muscle Mass Mild Depletion (non-severe) #3 Nutrition Diagnosis Malnutrition Diagnosis Progress(for reassessment Continues documentation) #2 Nutrition Diagnosis Increased nutrient needs ( specify in comment below) Diagnosis Progress(for reassessment Continues documentation) Is patient on ventilator? No Is Patient Ambulatory and/or Out of Bed No REE-([facility]-confined to bed) 2227.344 Kcal/Kg value to use for calculation 21 Approximate Energy Requirements Using 2016 kcal/Kg Calculation Used for Recommendations Kcal/kg Additional Notes Protein: 106-134 g (1.2-1.5 g/ kg AdBW 89 kg) Fluid: 1ml/kcal Nutrition Intervention Change Diet Order: Continue diet Add Supplement/Snack (indicate name/kcal Ensure High Protein daily /protein ) Sammy BID Provides kCal: 350 Provides Protein (gm) 21 Goal #1 Meet at least 75% protein and energy needs via PO Goal #2 ONS tolerance Goal #3 Intake of Sammy BID Anticipated Discharge Needs: Regular, healthful diet and Sammy BID and increased protein intake until pressure ulcer is healed. Follow-Up By: 08/18/20 Additional Comments F/u stable intakes, ONS and Sammy tolerance/intake
[2020-08-17] MEDS: ENOXAPARIN 40 MG/0.4 ML INJ SUB-Q SCH (21:12)
[2020-08-18] MEDS: guaiFENesin ER 600 MG TAB PO SCH ×2 (09:30→22:07)
[2020-08-18] MEDS: PHENobarbital 32.4 MG TAB PO SCH ×2 (09:30→22:07)
[2020-08-18] MEDS: QUEtiapine 200 MG TAB PO SCH (09:31)
[2020-08-18] MEDS: METOPROLOL TARTRATE 25 MG TAB PO SCH ×2 (09:31→22:08)
[2020-08-18] MEDS: LANSOPRAZOLE 30 MG SOLUTAB FEEDTUBE SCH (09:31)
[2020-08-18] MEDS: INSULIN LISPRO 100 UNIT/ML SUB-Q SCH ×4 (09:32→22:08)
[2020-08-18] MEDS: FOLIC ACID 1 MG TAB PO SCH (09:32)
[2020-08-18] MEDS ORDERED: guaiFENesin/CODEINE 100-10MG ORAL LIQD 5 ML PO PRN (15:46)
--- NOTE | 2020-08-18 18:30 | Progress Note ---
Assessment and Plan Assessment and plan: Positive COVID-19 test; 05/10/2020 Negative COVID-19 test; 06/30/2020 --Acute hypoxemic resp failure; oxygen dependent on 4 L NC, requiring intermittent BiPAP Due to COVID-19 pneumonia --Persistent sinus tachycardia: Multifactorial We will closely monitor --Severe COVID-19 bilateral pneumonia Coronavirus protocol: Completed steroids and remdesivir therapy, isolation precautions, Received management per COVID-19 protocol Repeat ivory PCR test negative on 06/30/2020 Isolation discontinued --Pneumothorax status post right chest tube Chest tube removed 07/23/2020 Post removal chest x-ray no pneumothorax Patient is requiring 3 to 4 L nasal cannula And intermittent BiPAP --Severe hypokalemia; resolved --Elevated D-dimers; Patient had CTA chest ; negative for PE, patient already had lower extremity venous Doppler which was negative for DVT --Pseudomonas bacteremia; ID following, completed cefepime Monitor off antibiotics --Severe sepsis/septic shock, monitor off pressors Completed cefepime, monitor off antibiotics -- Acute kidney injury (SEN) , likely vasomotor nephropathy Resolved, avoid nephrotoxins --Acute on chronic anemia Guaiac test positive, GI evaluated the patient Patient H&H is normal range now Hb 11.8 -- Elevated liver function tests; resolved LFTs within normal limits --Colonic distention GI evaluated colonic distention resolved recommend stool softeners -- DVT prophylaxis On therapeutic Lovenox CTA chest negative for PE,LE DVT negative, therapeutic Lovenox DC'd Changed to prophylactic Lovenox Discharge planning per case management CM reports that IRU is evaluating the patient for placement Patient is medically stable for discharge Disposition; IRU placement versus home with home health Discussed with case management and the patient again today. History Interval history: I have seen and examined the patient at the bedside Patient's chart and medications reviewed Patient feels slightly better remains on 4 L of nasal cannula oxygen Discharge planning in process Patient is alert awake oriented Vital signs noted Hospitalist Physical - Constitutional Vitals: Temp Pulse Resp BP Pulse Ox 97.2 F L 113 H 18 111/65 95 08/18/20 16:37 08/18/20 18:05 08/18/20 16:37 08/18/20 16:37 08/18/20 16:37 General appearance: Present: no acute distress, well-nourished - EENT Eyes: Present: PERRL, EOM intact - Neck Neck: Present: supple, normal ROM - Respiratory Respiratory effort: normal Respiratory: bilateral: diminished, negative: rales, rhonchi, wheezing - Cardiovascular Rhythm: regular Heart Sounds: Present: S1 & S2 - Extremities Extremities: no ischemia, No edema - Abdominal General gastrointestinal: soft, non-tender, non-distended, normal bowel sounds - Integumentary Integumentary: Present: clear, warm - Psychiatric Psychiatric: appropriate mood/affect, cooperative - Neurologic Neurologic: moves all extremities HEART Score - HEART Score Troponin: Troponin T 0.015 ng/mL (0.00-0.029) 07/07/20 10:00 Results - Labs CBC & Chem 7: 08/02/20 05:55 08/12/20 18:34 Labs: Laboratory Last Values WBC 12.4 K/mm3 (4.5-11.0) H 08/02/20 05:55 RBC 3.85 M/mm3 (3.65-5.03) 08/02/20 05:55 Hgb 12.3 gm/dl (11.8-15.2) 08/02/20 05:55 Hct 37.9 % (35.5-45.6) 08/02/20 05:55 MCV 99 fl (84-94) H 08/02/20 05:55 MCH 32 pg (28-32) 08/02/20 05:55 MCHC 33 % (32-34) 08/02/20 05:55 RDW 16.9 % (13.2-15.2) H 08/02/20 05:55 Plt Count 267 K/mm3 (140-440) 08/02/20 05:55 Lymph % (Auto) 18.3 % (13.4-35.0) 08/02/20 05:55 Thayer % (Auto) 9.7 % (0.0-7.3) H 08/02/20 05:55 Eos % (Auto) 3.3 % (0.0-4.3) 08/02/20 05:55 Baso % (Auto) 0.4 % (0.0-1.8) 08/02/20 05:55 Lymph # (Auto) 2.3 K/mm3 (1.2-5.4) 08/02/20 05:55 Thayer # (Auto) 1.2 K/mm3 (0.0-0.8) H 08/02/20 05:55 Eos # (Auto) 0.4 K/mm3 (0.0-0.4) 08/02/20 05:55 Baso # (Auto) 0.1 K/mm3 (0.0-0.1) 08/02/20 05:55 Add Manual Diff Complete 07/13/20 08:31 Total Counted 100 07/13/20 08:31 Seg Neutrophils % 68.3 % (40.0-70.0) 08/02/20 05:55 Seg Neuts % (Manual) 96.0 % (40.0-70.0) H 07/13/20 08:31 Band Neutrophils % 0 % 07/13/20 08:31 Lymphocytes % (Manual) 2.0 % (13.4-35.0) L 07/13/20 08:31 Reactive Lymphs % (Man) 0 % 07/13/20 08:31 Monocytes % (Manual) 2.0 % (0.0-7.3) 07/13/20 08:31 Eosinophils % (Manual) 0 % (0.0-4.3) 07/13/20 08:31 Basophils % (Manual) 0 % (0.0-1.8) 07/13/20 08:31 Metamyelocytes % 0 % 07/13/20 08:31 Myelocytes % 0 % 07/13/20 08:31 Promyelocytes % 0 % 07/13/20 08:31 Blast Cells % 0 % 07/13/20 08:31 Nucleated RBC % Not Reportable 07/13/20 08:31 Seg Neutrophils # 8.5 K/mm3 (1.8-7.7) H 08/02/20 05:55 Seg Neutrophils # Man 20.4 K/mm3 (1.8-7.7) H 07/13/20 08:31 Band Neutrophils # 0.0 K/mm3 07/13/20 08:31 Lymphocytes # (Manual) 0.4 K/mm3 (1.2-5.4) L 07/13/20 08:31 Abs React Lymphs (Man) 0.0 K/mm3 07/13/20 08:31 Monocytes # (Manual) 0.4 K/mm3 (0.0-0.8) 07/13/20 08:31 Eosinophils # (Manual) 0.0 K/mm3 (0.0-0.4) 07/13/20 08:31 Basophils # (Manual) 0.0 K/mm3 (0.0-0.1) 07/13/20 08:31 Metamyelocytes # 0.0 K/mm3 07/13/20 08:31 Myelocytes # 0.0 K/mm3 07/13/20 08:31 Promyelocytes # 0.0 K/mm3 07/13/20 08:31 Blast Cells # 0.0 K/mm3 07/13/20 08:31 WBC Morphology Not Reportable 07/13/20 08:31 Hypersegmented Neuts Not Reportable 07/13/20 08:31 Hyposegmented Neuts Not Reportable 07/13/20 08:31 Hypogranular Neuts Not Reportable 07/13/20 08:31 Smudge Cells Not Reportable 07/13/20 08:31 Toxic Granulation Not Reportable 07/13/20 08:31 Toxic Vacuolation Not Reportable 07/13/20 08:31 Dohle Bodies Not Reportable 07/13/20 08:31 Pelger-Huet Anomaly Not Reportable 07/13/20 08:31 Jasno Rods Not Reportable 07/13/20 08:31 Platelet Estimate Consistent w auto 07/13/20 08:31 Clumped Platelets Not Reportable 07/13/20 08:31 Plt Clumps, EDTA Not Reportable 07/13/20 08:31 Large Platelets Not Reportable 07/13/20 08:31 Giant Platelets Not Reportable 07/13/20 08:31 Platelet Satelliting Not Reportable 07/13/20 08:31 Plt Morphology Comment Not Reportable 07/13/20 08:31 RBC Morphology Not Reportable 07/13/20 08:31 Dimorphic RBCs Not Reportable 07/13/20 08:31 Polychromasia Not Reportable 07/13/20 08:31 Hypochromasia Not Reportable 07/13/20 08:31 Poikilocytosis Not Reportable 07/13/20 08:31 Anisocytosis Not Reportable 07/13/20 08:31 Microcytosis Not Reportable 07/13/20 08:31 Macrocytosis Not Reportable 07/13/20 08:31 Spherocytes Not Reportable 07/13/20 08:31 Pappenheimer Bodies Not Reportable 07/13/20 08:31 Sickle Cells Not Reportable 07/13/20 08:31 Target Cells Not Reportable 07/13/20 08:31 Tear Drop Cells Not Reportable 07/13/20 08:31 Ovalocytes Not Reportable 07/13/20 08:31 Stomatocytes Few 07/13/20 08:31 Helmet Cells Not Reportable 07/13/20 08:31 [place] Bodies Not Reportable 07/13/20 08:31 [place] Rings Not Reportable 07/13/20 08:31 [place] Cells Not Reportable 07/13/20 08:31 Bite Cells Not Reportable 07/13/20 08:31 Crenated Cell Not Reportable 07/13/20 08:31 Elliptocytes Not Reportable 07/13/20 08:31 Acanthocytes (Spur) Not Reportable 07/13/20 08:31 Rouleaux Not Reportable 07/13/20 08:31 Hemoglobin C Crystals Not Reportable 07/13/20 08:31 Schistocytes Not Reportable 07/13/20 08:31 Malaria parasites Not Reportable 07/13/20 08:31 Josue Bodies Not Reportable 07/13/20 08:31 Hem Pathologist Commnt No 07/13/20 08:31 PT 11.8 Sec. (12.2-14.9) L 06/22/20 14:29 INR 0.88 (0.87-1.13) 06/22/20 14:29 APTT 23.5 Sec. (24.2-36.6) L 06/22/20 14:29 D-Dimer 1887.82 ng/mlDDU (0-234) H 05/20/20 08:16 Heparin Anti-Xa Level 0.37 U.I./ml (0.3-0.7) 07/02/20 16:08 ABG pH 7.437 (7.320-7.450) 08/11/20 18:43 POC ABG pCO2 51.0 mmHg (32.0-48.0) H 08/11/20 18:43 ABG pCO2 53.1 mm Hg 07/08/20 Unknown POC ABG pO2 84.9 mmHg (83-108) 08/11/20 18:43 ABG pO2 75.3 mm Hg (80.0-90.0) L 07/08/20 Unknown POC ABG HCO3 33.6 08/11/20 18:43 ABG HCO3 34.3 mmol/L (20.0-26.0) H 07/08/20 Unknown ABG O2 Saturation 96.5 % (95.0-99.0) 07/08/20 Unknown ABG O2 Content 13.5 (0.0-44) 07/08/20 Unknown POC ABG Base Excess 7.9 08/11/20 18:43 ABG Base Excess 8.7 mmol/L (-2.0-3.0) H 07/08/20 Unknown ABG Hemoglobin 13.8 (12.0-17.5) 08/11/20 18:43 ABG Oxyhemoglobin 94.6 (94-98) 08/11/20 18:43 ABG Carboxyhemoglobin 2.4 % (0.0-5.0) 07/08/20 Unknown ABG Methemoglobin 0.3 (0.0-1.5) 08/11/20 18:43 ABG Sodium 138.0 mmol/L (136.0-145.0) 08/11/20 18:43 ABG Potassium 3.4 mmol/L (3.40-4.50) 08/11/20 18:43 ABG Chloride 99.0 mmol/L (98-107) 08/11/20 18:43 ABG Glucose 149 mg/dL (65-95) H 08/11/20 18:43 Oxyhemoglobin 93.7 % (95.0-99.0) L 07/08/20 Unknown Carboxyhemoglobin 1.2 (0.5-1.5) 08/11/20 18:43 FiO2 50.0 08/11/20 18:43 Sodium 139 mmol/L (137-145) 08/12/20 18:34 Potassium 3.7 mmol/L (3.6-5.0) 08/12/20 18:34 Chloride 97.2 mmol/L (98-107) L 08/12/20 18:34 Carbon Dioxide 28 mmol/L (22-30) 08/12/20 18:34 Anion Gap 18 mmol/L 08/12/20 18:34 BUN 15 mg/dL (9-20) 08/12/20 18:34 Creatinine 0.5 mg/dL (0.8-1.3) L 08/12/20 18:34 Estimated GFR > 60 ml/min 08/12/20 18:34 BUN/Creatinine Ratio 30 % 08/12/20 18:34 Glucose 132 mg/dL (75-100) H 08/12/20 18:34 POC Glucose 103 mg/dL (70-105) 08/18/20 08:11 Lactic Acid 0.80 mmol/L (0.7-2.0) 07/13/20 15:45 Calcium 9.2 mg/dL (8.4-10.2) 08/12/20 18:34 Phosphorus 3.10 mg/dL (2.5-4.5) 06/15/20 04:00 Magnesium 2.00 mg/dL (1.7-2.3) 07/24/20 05:05 Ferritin 1496.0 ng/mL (30.0-300.0) H 06/14/20 11:50 Total Bilirubin 0.30 mg/dL (0.1-1.2) 08/02/20 05:55 Direct Bilirubin 0.6 mg/dL (0-0.2) H 05/11/20 07:30 Indirect Bilirubin 0.9 mg/dL 05/11/20 07:30 AST 37 units/L (5-40) 08/02/20 05:55 ALT 118 units/L (7-56) H 08/02/20 05:55 Alkaline Phosphatase 88 units/L (35-129) 08/02/20 05:55 Lactate Dehydrogenase 705 units/L (91-180) H 05/20/20 08:16 Troponin T 0.015 ng/mL (0.00-0.029) 07/07/20 10:00 C-Reactive Protein 3.10 mg/dL (0.00-1.30) H 05/20/20 08:16 Total Protein 6.4 g/dL (6.3-8.2) 08/02/20 05:55 Albumin 3.3 g/dL (3.9-5) L 08/02/20 05:55 Albumin/Globulin Ratio 1.1 % 08/02/20 05:55 Triglycerides 452 mg/dL (2-149) H 06/30/20 07:00 Lipase 86 units/L (13-60) H 06/29/20 09:36 Procalcitonin 2.15 ng/mL (<0.15) 07/15/20 05:31 Arterial Blood Glucose 149 mg/dL (65-95) H 08/11/20 18:43 Arterial Blood Ionized Calcium 4.8 mg/dL (4.6-5.3) 08/11/20 18:43 Urine Color Fauzia (Yellow) 05/10/20 Unknown Urine Turbidity Clear (Clear) 05/10/20 Unknown Urine pH 5.0 (5.0-7.0) 05/10/20 Unknown Ur Specific [place] 1.019 (1.003-1.030) 05/10/20 Unknown Urine Protein 100 mg/dl mg/dL (Negative) 05/10/20 Unknown Urine Glucose (UA) Neg mg/dL (Negative) 05/10/20 Unknown Urine Ketones Neg mg/dL (Negative) 05/10/20 Unknown Urine Blood Lg (Negative) 05/10/20 Unknown Urine Nitrite Neg (Negative) 05/10/20 Unknown Urine Bilirubin Neg (Negative) 05/10/20 Unknown Urine Urobilinogen 2.0 mg/dL (<2.0) 05/10/20 Unknown Ur Leukocyte Esterase Neg (Negative) 05/10/20 Unknown Urine WBC (Auto) 11.0 /HPF (0.0-6.0) H 05/10/20 Unknown Urine RBC (Auto) 2.0 /HPF (0.0-6.0) 05/10/20 Unknown U Epithel Cells (Auto) 1.0 /HPF (0-13.0) 05/10/20 Unknown Urine Bacteria (Auto) 1+ /HPF (Negative) 05/10/20 Unknown Urine Mucus Few /HPF 05/10/20 Unknown Plasma/Serum Alcohol < 0.01 % (0-0.07) 05/09/20 14:20 Coronavirus (PCR) Negative (Negative) 08/06/20 09:36 Hepatitis A Ab Total Nonreactive (Nonreactive) 07/09/20 Unknown Hep B Core Total Ab Nonreactive (Nonreactive) 07/09/20 Unknown Hepatitis C RNA Quant See scanned result 07/09/20 Unknown SARS-CoV-2 IgG Ab Reactive (NonReactive) A 05/11/20 07:30 Blood Type B POSITIVE 06/21/20 14:18 Antibody Screen Negative 06/21/20 14:18 Crossmatch See Detail 06/21/20 14:18 - Diagnostic Impressions Diagnostic Impressions: Echocardiogram 05/20/20 13:02 Transthoracic Echocardiogram Indication: CHF BP: 97/73 Conclusions *The study quality is technically very difficult and limited. *The left ventricular chamber size, wall thickness and systolic function are within normal limits. There are no wall motion abnormalities observed. Ejection fraction is normal. *The estimated ejection fraction is 60-65%. *The pericardium appears normal. Findings Procedure Info: The study quality is technically difficult. Left Ventricle: The left ventricular chamber size, wall thickness and systolic function are within normal limits. There are no wall motion abnormalities observed. Ejection fraction is normal. The estimated ejection fraction is 60-65%. Abnormal left ventricular diastolic filling is observed, consistent with impaired relaxation. Left Atrium: The left atrium is normal in size with no visual thrombus identified. Right Ventricle: The right ventricle is not well visualized. Right Atrium: The right atrium is not well visualized. Aortic Valve: The aortic valve is trileaflet. The leaflets are thin with normal excursion. There is no aortic stenosis or regurgitation present. Mitral Valve: The mitral valve appears normal in structure and function. Tricuspid Valve: The tricuspid valve appears normal in structure and function. Unable to estimate the right ventricular systolic pressure. Pulmonic Valve: The pulmonic valve is not well visualized. There is no evidence of pulmonic regurgitation. There is no pulmonic stenosis. Pericardium: The pericardium appears normal. Pulmonary Artery: The main pulmonary artery is not well visualized. Venous: The inferior vena cava appears normal in size. Measurements Chambers 2D Name Value Normal Range IVSd (2D) 0.83 cm (0.6 - 1.1) LVPWd (2D) 0.83 cm (0.6 - 1.1) LVIDd (2D) 3.88 cm (3.7 - 5.6) LVIDs (2D) 2.46 cm (2 - 3.8) LV FS (2D) 36.52 % - EF Teichholz (2D) 66.97 % - Ao root diameter (2D) 3.47 cm (2 - 3.7) Volumes/Mass Name Value Normal Range LA ESV SP 4CH (A/L) 22.4 ml - LA ESV SP 2CH (A/L) 22.89 ml - LA ESV BP (A/L) 23.06 ml - LA ESV SP 4CH (MOD) 21.09 ml - LA ESV SP 2CH (MOD) 22.44 ml - Diastolic/Systolic Function Name Value Normal Range MV E-wave Vmax 0.48 m/sec - MV deceleration time 156.3 msec - MV A-wave Vmax 0.59 m/sec - MV E:A ratio 0.81 ratio - Aortic Valve Name Value Normal Range AV Vmax 0.97 m/sec - AV VTI 14.49 cm - AV peak gradient 3.73 mmHg - AV mean gradient 1.89 mmHg - LVOT diameter 2.09 cm - LVOT Vmax 0.72 m/sec - LVOT VTI 10.21 cm - LVOT peak gradient 2.05 mmHg - LVOT mean gradient 1.03 mmHg - SV LVOT 35.17 ml - INNA (continuity Vmax) 2.55 cm2 - INNA (continuity VTI) 2.43 cm2 - Tricuspid Valve Name Value Normal Range TV E-wave Vmax 0.37 m/sec - Pulmonic Valve/Qp:Qs Name Value Normal Range PV Vmax 0.72 m/sec - PV peak gradient 2.06 mmHg - RVOT Vmax 0.85 m/sec - RVOT VTI 9.89 cm - RVOT peak gradient 2.9 mmHg - PV acceleration time 72.31 msec - Cantor/IV: Voiding Method Urinal IV Catheter Type [Right Wrist] INT / Saline Lock IV Catheter Type [Right Upper Peripheral IV arm] IV Catheter Type [Right CVL Internal Jugular] IV Catheter Type [Right Peripheral IV Forearm] IV Catheter Type [Left Forearm INT / Saline Lock ] IV Catheter Type [Left Wrist] INT / Saline Lock IV Catheter Type [Right Hand] INT / Saline Lock IV Catheter Type [Left Hand] INT / Saline Lock IV Catheter Type [Left Peripheral IV Antecubital] Active Medications - Current Medications Current Medications: Generic Name Dose Route Start Last Admin Trade Name Freq PRN Reason Stop Dose Admin Acetaminophen 650 mg 08/07/20 10:06 08/13/20 16:05 Acetaminophen 325 Mg Tab PO 650 mg Q4H PRN Administration Pain, Mild (1-3) Bisacodyl 10 mg 07/14/20 11:00 Bisacodyl 10 Mg Rect Supp SC BID PRN Laxative Effect Enoxaparin Sodium 40 mg 07/29/20 22:00 08/17/20 21:12 Enoxaparin 40 Mg/0.4 Ml Inj SUB-Q 40 mg QDAY@2200 DESIRE Administration Protocol Folic Acid 1 mg 05/09/20 15:36 08/18/20 09:32 Folic Acid 1 Mg Tab PO 1 mg QDAY DESIRE Administration Guaifenesin 600 mg 07/19/20 23:00 08/18/20 09:30 Guaifenesin Er 600 Mg Tab PO 600 mg BID DESIRE Administration Hydrophilic Ointment 1 applic 05/21/20 20:33 Lip Therapy Vaseline TP Q2HR PRN Dry Lips Insulin Human Lispro 0 unit 07/31/20 07:30 08/18/20 16:39 Insulin Lispro 100 Unit/Ml SUB-Q Not Given ACHS [facility] Protocol Lansoprazole 30 mg 06/28/20 10:00 08/18/20 09:31 Lansoprazole 30 Mg Solutab FEEDTUBE 30 mg QDAY DESIRE Administration Metoprolol Tartrate 5 mg 07/02/20 17:17 08/13/20 14:44 Metoprolol Tartrate 5 Mg/5 Ml Inj IV 5 mg Q6HR PRN Administration Tachyarrhythmias Metoprolol Tartrate 25 mg 08/12/20 12:00 08/18/20 09:31 Metoprolol Tartrate 25 Mg Tab PO 25 mg BID DESIRE Administration Multi-Ingred Cream/Lotion/Oil/Oint 1 applic 05/21/20 20:33 Mineral Oil/Petrolatum, White Ophth Oint 3.5 Gm OU Q4HR PRN Dry Eye(s) Olanzapine 5 mg 07/17/20 22:00 08/17/20 21:12 Olanzapine 5 Mg Tab PO 5 mg QHS DESIRE Administration Phenobarbital 32.4 mg 07/04/20 22:00 08/18/20 09:30 Phenobarbital 32.4 Mg Tab PO 32.4 mg BID DESIRE Administration Pseudoephedrine/Acetam/Chlorphenir 10 ml 08/18/20 15:45 Guaifenesin/Codeine 100-10mg Oral Liqd 5 Ml PO Q4H PRN Cough Quetiapine Fumarate 200 mg 07/16/20 10:00 08/18/20 09:31 Quetiapine 200 Mg Tab PO 200 mg QAM DESIRE Administration Senna 17.2 mg 07/14/20 11:00 08/03/20 16:46 Sennosides 8.6 Mg Tab PO 8.6 mg BID PRN Administration Laxative Effect Nutrition/Malnutrition Assess - Dietary Evaluation Nutrition/Malnutrition Findings: Nutrition Notes Start: 05/17/20 14:10 Freq: Status: Active Protocol: Document 08/18/20 12:39 CW (Rec: 08/18/20 12:53 CW [id number]) Nutrition Notes Initial or Follow up Reassessment Current Diagnosis Acute Kidney Injury,Decubitus( Pressure Ulcer),Sepsis, Respiratory Failure Other Pertinent Diagnosis Bilat pneu, COVID-19 (-), Colonic pseudoobstuction, EtOH dependence Current Diet Regular diet Labs/Tests Reviewed Pertinent Medications Reviewed Height 6 ft Weight 99.5 kg Usual Body Weight 118 kg [place] Body Weight (kg) 80.90 BMI 29.7 Weight change and time frame Weight gain noted Weight Status Overweight Subjective/Other Information F/u for intakes, Sammy and ONS tolerance. Pt reports consuming 100% of meals and ONS. R/O good appetite. Pt denies N/V/D/C. Percent of energy/protein needs met: 100%/100% Burn Absent Trauma Absent GI Symptoms None Current % PO Good (75-100%) Minimum of two criteria Yes Interpretation of Weight Loss (severe) >5% in 1 month Muscle Mass Mild Depletion (non-severe) #3 Nutrition Diagnosis Malnutrition Diagnosis Progress(for reassessment Continues documentation) #2 Nutrition Diagnosis Increased nutrient needs ( specify in comment below) Diagnosis Progress(for reassessment Continues documentation) Is patient on ventilator? No Is Patient Ambulatory and/or Out of Bed No REE-([facility]-confined to bed) 2269.308 Kcal/Kg value to use for calculation 21 Approximate Energy Requirements Using 0 kcal/Kg Calculation Used for Recommendations Kcal/kg Additional Notes Protein: 108-135 g (1.2-1.5 g/ kg AdBW 90 kg) Fluid: 1ml/kcal Nutrition Intervention Change Diet Order: Continue diet Add Supplement/Snack (indicate name/kcal Ensure High Protein daily /protein ) Sammy BID Provides kCal: 350 Provides Protein (gm) 21 Goal #1 Meet at least 75% protein and energy needs via PO Goal #2 ONS tolerance Goal #3 Intake of Sammy BID Anticipated Discharge Needs: Regular dier, Sammy BID and Ensure High Protein until wound healed Follow-Up By: 08/25/20 Additional Comments F/u stable intakes, ONS and Sammy tolerance/intake
[2020-08-18] MEDS: ENOXAPARIN 40 MG/0.4 ML INJ SUB-Q SCH (22:08)
[2020-08-19] MEDS: INSULIN LISPRO 100 UNIT/ML SUB-Q SCH ×4 (09:02→21:00)
[2020-08-19] MEDS: PHENobarbital 32.4 MG TAB PO SCH ×2 (10:14→21:11)
[2020-08-19] MEDS: guaiFENesin ER 600 MG TAB PO SCH ×2 (10:14→21:10)
[2020-08-19] MEDS: LANSOPRAZOLE 30 MG SOLUTAB FEEDTUBE SCH (10:14)
[2020-08-19] MEDS: METOPROLOL TARTRATE 25 MG TAB PO SCH ×2 (10:14→21:10)
[2020-08-19] MEDS: FOLIC ACID 1 MG TAB PO SCH (10:15)
[2020-08-19] MEDS: QUEtiapine 200 MG TAB PO SCH (10:15)
--- NOTE | 2020-08-19 12:45 | Progress Note ---
Assessment and Plan Acute hypoxemic respiratory failure due to COVID-19 Severe Sepsis Bilateral pneumonia Acute kidney injury (SEN) with acute tubular necrosis (ATN) Severe Deconditioning Alcohol dependence Elevated liver function tests - continue PT/OT as tolerated - tachycardia with PT likely physiologic - continue to wean supplemental oxygen for target O2 sat's > 92% acutely - continue aspiration precautions - continue psychoactive medications per mental health team - continue care as below otherwise; - BIPAP scheduled qhs with prn daytime use (can change to prn at this point) - continue bowel regimen - aspiration precautions - continue bronchodilators with pulmonary hygiene per RT - accuchecks with glycemic control per SSI for target blood glucose of < 180 mg/dL; avoid hypoglycemia - repeat COVID-19 testing is negative X 2 - wean systemic steroids for Asthma / severe COVID infection - completed remdesivir dosing (total 5 days) - avoid nephrotoxins, renally dose all medications - continue to avoid benzodiazepine's, reduce the possibility of delirium - prn analgesia per pain score - Maintenance of sleep-wake cycle, avoid delirium - continue to avoid benzodiazepine's, reduce the possibility of delirium - G.I. & VTE prophylaxis with Prevacid & Lovenox - PT/OT/ROM exercises - continue mobility protocols for pressure ulcer prophylaxis - Monitor hemodynamics closely - continue other care per attending / other consultants - discharge planning ongoing concurrently - transfer to telemetry floor ok .... Re-evaluate in am & prn CONDITION: STABLE PROGNOSIS: IMPROVED CODE STATUS: FULL CODE Subjective Date of service: 08/19/20 Principal diagnosis: Ac hypoxemic resp failure; COVID-19; Severe Sepsis; Shaggy PNA; Alcohol Abuse Interval history: Patient is seen today for: Acute hypoxemic respiratory failure due to COVID-19; Severe Sepsis; Bilateral pneumonia; Alcohol dependence; Elevated liver function tests Seen and examined at bedside; 24hour events reviewed; nursing and respiratory care staff consulted; no adverse overnight events reported to me; resting in bed; remains on supplemental oxygen; down to 4-5 LNC; tolerating PT/OT a little better; No N/V/F/C Objective Vital Signs - 12hr 08/19/20 08/19/20 08/19/20 03:51 07:47 09:59 Temperature 98.0 F 98.8 F Pulse Rate 98 H 101 H Respiratory 20 18 Rate Blood Pressure 106/66 111/77 O2 Sat by Pulse 100 97 96 Oximetry 08/19/20 08/19/20 10:14 11:41 Temperature 98.0 F Pulse Rate 98 H 117 H Respiratory 18 Rate Blood Pressure 115/67 116/74 O2 Sat by Pulse 95 Oximetry Constitutional: no acute distress, alert, other (middle agen male with mildly increased respiratory effort at rest) Eyes: non-icteric ENT: oropharynx moist, other (extubated) Neck: supple, no JVD Effort: mildly labored Ascultation: Bilateral: diminished breath sounds, rhonchi (scant bases) Percussion: Bilateral: not dull Cardiovascular: regular rate and rhythm, other (No R/M) Gastrointestinal: normoactive bowel sounds, soft, non-tender, non-distended (protuberant) Integumentary: normal Extremities: no cyanosis, no edema, pulses normal, no ischemia or petechiae Neurologic: non-focal exam (non focal grossly; weak), pupils equal and round, CN II-XII normal, motor strength normal and (weak ) Psychiatric: mood appropriate, affect normal CBC and BMP: 08/02/20 05:55 08/12/20 18:34 ABG, PT/INR, D-dimer: ABG ABG pH 7.437 (7.320-7.450) 08/11/20 18:43 POC ABG pCO2 51.0 mmHg (32.0-48.0) H 08/11/20 18:43 ABG pCO2 53.1 mm Hg 07/08/20 Unknown POC ABG pO2 84.9 mmHg (83-108) 08/11/20 18:43 ABG pO2 75.3 mm Hg (80.0-90.0) L 07/08/20 Unknown POC ABG HCO3 33.6 08/11/20 18:43 ABG O2 Saturation 96.5 % (95.0-99.0) 07/08/20 Unknown PT/INR, D-dimer PT 11.8 Sec. (12.2-14.9) L 06/22/20 14:29 INR 0.88 (0.87-1.13) 06/22/20 14:29 D-Dimer 1887.82 ng/mlDDU (0-234) H 05/20/20 08:16 Abnormal lab findings: Abnormal Labs 05/09/20 05/09/20 05/09/20 12:59 12:59 12:59 WBC 11.8 H RBC Hgb Hct MCV 96 H MCH 34 H MCHC 35 H RDW Lymph % (Auto) 6.9 L [place] % (Auto) Lymph # (Auto) 0.8 L [place] # (Auto) Baso # (Auto) Seg Neutrophils % 87.5 H Seg Neuts % (Manual) Lymphocytes % (Manual) Nucleated RBC % Seg Neutrophils # 10.3 H Seg Neutrophils # Man Lymphocytes # (Manual) Monocytes # (Manual) Eosinophils # (Manual) PT INR APTT D-Dimer Heparin Anti-Xa Level ABG pH POC ABG pCO2 POC ABG pO2 ABG pO2 ABG HCO3 ABG O2 Saturation ABG Base Excess ABG Hemoglobin ABG Oxyhemoglobin ABG Sodium ABG Potassium ABG Chloride ABG Glucose Oxyhemoglobin Carboxyhemoglobin Sodium 130 L Potassium 3.5 L Chloride 86.4 L Carbon Dioxide BUN 33 H Creatinine 2.3 H Glucose 156 H POC Glucose Lactic Acid Calcium Magnesium Ferritin Total Bilirubin 3.40 H Direct Bilirubin 1.7 H AST 385 H ALT 134 H Alkaline Phosphatase Lactate Dehydrogenase C-Reactive Protein Total Protein Albumin 3.0 L Triglycerides Lipase Arterial Blood Glucose Arterial Blood Ionized Calcium Urine WBC (Auto) Coronavirus (PCR) SARS-CoV-2 IgG Ab Crossmatch 05/09/20 05/09/20 05/09/20 12:59 12:59 12:59 WBC RBC Hgb Hct MCV MCH MCHC RDW Lymph % (Auto) [place] % (Auto) Lymph # (Auto) [place] # (Auto) Baso # (Auto) Seg Neutrophils % Seg Neuts % (Manual) Lymphocytes % (Manual) Nucleated RBC % Seg Neutrophils # Seg Neutrophils # Man Lymphocytes # (Manual) Monocytes # (Manual) Eosinophils # (Manual) PT INR APTT D-Dimer 3242.51 H Heparin Anti-Xa Level ABG pH POC ABG pCO2 POC ABG pO2 ABG pO2 ABG HCO3 ABG O2 Saturation ABG Base Excess ABG Hemoglobin ABG Oxyhemoglobin ABG Sodium ABG Potassium ABG Chloride ABG Glucose Oxyhemoglobin Carboxyhemoglobin Sodium Potassium Chloride Carbon Dioxide BUN Creatinine Glucose 158 H POC Glucose Lactic Acid 3.50 H* Calcium Magnesium Ferritin Total Bilirubin Direct Bilirubin AST ALT Alkaline Phosphatase Lactate Dehydrogenase 2166 H C-Reactive Protein 39.00 H Total Protein Albumin Triglycerides Lipase Arterial Blood Glucose Arterial Blood Ionized Calcium Urine WBC (Auto) Coronavirus (PCR) SARS-CoV-2 IgG Ab Crossmatch 05/09/20 05/09/20 05/09/20 12:59 14:20 14:20 WBC RBC Hgb Hct MCV MCH MCHC RDW Lymph % (Auto) [place] % (Auto) Lymph # (Auto) [place] # (Auto) Baso # (Auto) Seg Neutrophils % Seg Neuts % (Manual) Lymphocytes % (Manual) Nucleated RBC % Seg Neutrophils # Seg Neutrophils # Man Lymphocytes # (Manual) Monocytes # (Manual) Eosinophils # (Manual) PT INR APTT D-Dimer 2861.78 H Heparin Anti-Xa Level ABG pH POC ABG pCO2 POC ABG pO2 ABG pO2 ABG HCO3 ABG O2 Saturation ABG Base Excess ABG Hemoglobin ABG Oxyhemoglobin ABG Sodium ABG Potassium ABG Chloride ABG Glucose Oxyhemoglobin Carboxyhemoglobin Sodium Potassium Chloride Carbon Dioxide BUN Creatinine Glucose POC Glucose Lactic Acid 2.20 H* Calcium Magnesium Ferritin 43792.0 H Total Bilirubin Direct Bilirubin AST ALT Alkaline Phosphatase Lactate Dehydrogenase C-Reactive Protein Total Protein Albumin Triglycerides Lipase Arterial Blood Glucose Arterial Blood Ionized Calcium Urine WBC (Auto) Coronavirus (PCR) SARS-CoV-2 IgG Ab Crossmatch 05/09/20 05/09/20 05/09/20 14:20 14:20 15:56 WBC RBC Hgb Hct MCV MCH MCHC RDW Lymph % (Auto) [place] % (Auto) Lymph # (Auto) [place] # (Auto) Baso # (Auto) Seg Neutrophils % Seg Neuts % (Manual) Lymphocytes % (Manual) Nucleated RBC % Seg Neutrophils # Seg Neutrophils # Man Lymphocytes # (Manual) Monocytes # (Manual) Eosinophils # (Manual) PT INR APTT D-Dimer Heparin Anti-Xa Level ABG pH POC ABG pCO2 POC ABG pO2 57.3 L ABG pO2 ABG HCO3 ABG O2 Saturation ABG Base Excess ABG Hemoglobin ABG Oxyhemoglobin 86.3 L ABG Sodium 129.9 L ABG Potassium ABG Chloride ABG Glucose 146 H Oxyhemoglobin Carboxyhemoglobin Sodium Potassium Chloride Carbon Dioxide BUN Creatinine Glucose 143 H POC Glucose Lactic Acid Calcium Magnesium Ferritin 51320.0 H Total Bilirubin Direct Bilirubin AST ALT Alkaline Phosphatase Lactate Dehydrogenase 1953 H C-Reactive Protein 33.50 H Total Protein Albumin Triglycerides Lipase Arterial Blood Glucose 146 H Arterial Blood Ionized Calcium 3.9 L Urine WBC (Auto) Coronavirus (PCR) SARS-CoV-2 IgG Ab Crossmatch 05/10/20 05/10/20 05/10/20 10:32 10:32 18:50 WBC 15.4 H RBC Hgb Hct MCV 97 H MCH 33 H MCHC RDW 13.1 L Lymph % (Auto) [place] % (Auto) Lymph # (Auto) [place] # (Auto) Baso # (Auto) Seg Neutrophils % Seg Neuts % (Manual) 89.0 H Lymphocytes % (Manual) 8.0 L Nucleated RBC % Seg Neutrophils # Seg Neutrophils # Man 13.7 H Lymphocytes # (Manual) Monocytes # (Manual) Eosinophils # (Manual) PT INR APTT D-Dimer Heparin Anti-Xa Level ABG pH POC ABG pCO2 POC ABG pO2 ABG pO2 ABG HCO3 ABG O2 Saturation ABG Base Excess ABG Hemoglobin ABG Oxyhemoglobin ABG Sodium ABG Potassium ABG Chloride ABG Glucose Oxyhemoglobin Carboxyhemoglobin Sodium 136 L Potassium Chloride 97.4 L Carbon Dioxide BUN 37 H Creatinine 1.7 H Glucose 209 H POC Glucose Lactic Acid Calcium Magnesium Ferritin > 2000.0 H Total Bilirubin Direct Bilirubin AST ALT Alkaline Phosphatase Lactate Dehydrogenase C-Reactive Protein Total Protein Albumin Triglycerides Lipase Arterial Blood Glucose Arterial Blood Ionized Calcium Urine WBC (Auto) Coronavirus (PCR) SARS-CoV-2 IgG Ab Crossmatch 05/10/20 05/10/20 05/10/20 18:50 19:00 Unknown WBC RBC Hgb Hct MCV MCH MCHC RDW Lymph % (Auto) [place] % (Auto) Lymph # (Auto) [place] # (Auto) Baso # (Auto) Seg Neutrophils % Seg Neuts % (Manual) Lymphocytes % (Manual) Nucleated RBC % Seg Neutrophils # Seg Neutrophils # Man Lymphocytes # (Manual) Monocytes # (Manual) Eosinophils # (Manual) PT INR APTT D-Dimer > 85476 H Heparin Anti-Xa Level ABG pH POC ABG pCO2 POC ABG pO2 ABG pO2 ABG HCO3 ABG O2 Saturation ABG Base Excess ABG Hemoglobin ABG Oxyhemoglobin ABG Sodium ABG Potassium ABG Chloride ABG Glucose Oxyhemoglobin Carboxyhemoglobin Sodium Potassium Chloride Carbon Dioxide BUN Creatinine Glucose POC Glucose Lactic Acid Calcium Magnesium Ferritin Total Bilirubin Direct Bilirubin AST ALT Alkaline Phosphatase Lactate Dehydrogenase 1879 H C-Reactive Protein 24.80 H Total Protein Albumin Triglycerides Lipase Arterial Blood Glucose Arterial Blood Ionized Calcium Urine WBC (Auto) 11.0 H Coronavirus (PCR) SARS-CoV-2 IgG Ab Crossmatch 05/10/20 05/11/20 05/11/20 Unknown 07:30 07:30 WBC RBC Hgb Hct MCV MCH MCHC RDW Lymph % (Auto) [place] % (Auto) Lymph # (Auto) [place] # (Auto) Baso # (Auto) Seg Neutrophils % Seg Neuts % (Manual) Lymphocytes % (Manual) Nucleated RBC % Seg Neutrophils # Seg Neutrophils # Man Lymphocytes # (Manual) Monocytes # (Manual) Eosinophils # (Manual) PT INR APTT D-Dimer > 2000 H Heparin Anti-Xa Level ABG pH POC ABG pCO2 POC ABG pO2 ABG pO2 ABG HCO3 ABG O2 Saturation ABG Base Excess ABG Hemoglobin ABG Oxyhemoglobin ABG Sodium ABG Potassium ABG Chloride ABG Glucose Oxyhemoglobin Carboxyhemoglobin Sodium Potassium Chloride 96.3 L Carbon Dioxide BUN 36 H Creatinine Glucose 161 H POC Glucose Lactic Acid Calcium 8.3 L Magnesium Ferritin Total Bilirubin 1.50 H Direct Bilirubin 0.6 H AST 178 H ALT 111 H Alkaline Phosphatase Lactate Dehydrogenase C-Reactive Protein Total Protein Albumin 3.0 L Triglycerides Lipase Arterial Blood Glucose Arterial Blood Ionized Calcium Urine WBC (Auto) Coronavirus (PCR) Positive A SARS-CoV-2 IgG Ab Crossmatch 05/11/20 05/11/20 05/11/20 07:30 07:30 07:30 WBC RBC Hgb Hct MCV MCH MCHC RDW Lymph % (Auto) [place] % (Auto) Lymph # (Auto) [place] # (Auto) Baso # (Auto) Seg Neutrophils % Seg Neuts % (Manual) Lymphocytes % (Manual) Nucleated RBC % Seg Neutrophils # Seg Neutrophils # Man Lymphocytes # (Manual) Monocytes # (Manual) Eosinophils # (Manual) PT INR APTT D-Dimer Heparin Anti-Xa Level ABG pH POC ABG pCO2 POC ABG pO2 ABG pO2 ABG HCO3 ABG O2 Saturation ABG Base Excess ABG Hemoglobin ABG Oxyhemoglobin ABG Sodium ABG Potassium ABG Chloride ABG Glucose Oxyhemoglobin Carboxyhemoglobin Sodium Potassium Chloride Carbon Dioxide BUN Creatinine Glucose POC Glucose Lactic Acid Calcium Magnesium Ferritin 92016.0 H Total Bilirubin Direct Bilirubin AST ALT Alkaline Phosphatase Lactate Dehydrogenase 1523 H C-Reactive Protein 12.90 H Total Protein Albumin Triglycerides Lipase Arterial Blood Glucose Arterial Blood Ionized Calcium Urine WBC (Auto) Coronavirus (PCR) SARS-CoV-2 IgG Ab Reactive A Crossmatch 05/13/20 05/13/20 05/15/20 05:20 05:20 08:15 WBC RBC Hgb Hct MCV MCH MCHC RDW Lymph % (Auto) [place] % (Auto) Lymph # (Auto) [place] # (Auto) Baso # (Auto) Seg Neutrophils % Seg Neuts % (Manual) Lymphocytes % (Manual) Nucleated RBC % Seg Neutrophils # Seg Neutrophils # Man Lymphocytes # (Manual) Monocytes # (Manual) Eosinophils # (Manual) PT INR APTT D-Dimer > 42348 H 5318.28 H Heparin Anti-Xa Level ABG pH POC ABG pCO2 POC ABG pO2 ABG pO2 ABG HCO3 ABG O2 Saturation ABG Base Excess ABG Hemoglobin ABG Oxyhemoglobin ABG Sodium ABG Potassium ABG Chloride ABG Glucose Oxyhemoglobin Carboxyhemoglobin Sodium Potassium Chloride Carbon Dioxide 32 H BUN 30 H Creatinine Glucose 156 H POC Glucose Lactic Acid Calcium Magnesium 2.60 H Ferritin Total Bilirubin 1.40 H Direct Bilirubin AST 121 H ALT 119 H Alkaline Phosphatase Lactate Dehydrogenase 957 H C-Reactive Protein 4.00 H Total Protein Albumin 3.0 L Triglycerides Lipase Arterial Blood Glucose Arterial Blood Ionized Calcium Urine WBC (Auto) Coronavirus (PCR) SARS-CoV-2 IgG Ab Crossmatch 05/15/20 05/15/20 05/15/20 08:15 08:15 08:15 WBC 12.4 H RBC Hgb Hct MCV 98 H MCH 33 H MCHC RDW Lymph % (Auto) 9.7 L [place] % (Auto) Lymph # (Auto) [place] # (Auto) Baso # (Auto) Seg Neutrophils % 86.8 H Seg Neuts % (Manual) Lymphocytes % (Manual) Nucleated RBC % Seg Neutrophils # 10.8 H Seg Neutrophils # Man Lymphocytes # (Manual) Monocytes # (Manual) Eosinophils # (Manual) PT INR APTT D-Dimer Heparin Anti-Xa Level ABG pH POC ABG pCO2 POC ABG pO2 ABG pO2 ABG HCO3 ABG O2 Saturation ABG Base Excess ABG Hemoglobin ABG Oxyhemoglobin ABG Sodium ABG Potassium ABG Chloride ABG Glucose Oxyhemoglobin Carboxyhemoglobin Sodium Potassium Chloride 94.8 L Carbon Dioxide 32 H BUN 22 H Creatinine Glucose 115 H POC Glucose Lactic Acid Calcium 8.3 L Magnesium Ferritin 2494.0 H Total Bilirubin Direct Bilirubin AST 73 H ALT 121 H Alkaline Phosphatase Lactate Dehydrogenase 835 H C-Reactive Protein 3.40 H Total Protein 6.1 L Albumin 3.0 L Triglycerides Lipase Arterial Blood Glucose Arterial Blood Ionized Calcium Urine WBC (Auto) Coronavirus (PCR) SARS-CoV-2 IgG Ab Crossmatch 05/17/20 05/17/20 05/17/20 05:50 05:50 05:50 WBC RBC Hgb Hct MCV MCH MCHC RDW Lymph % (Auto) [place] % (Auto) Lymph # (Auto) [place] # (Auto) Baso # (Auto) Seg Neutrophils % Seg Neuts % (Manual) Lymphocytes % (Manual) Nucleated RBC % Seg Neutrophils # Seg Neutrophils # Man Lymphocytes # (Manual) Monocytes # (Manual) Eosinophils # (Manual) PT INR APTT D-Dimer 2911.42 H Heparin Anti-Xa Level ABG pH POC ABG pCO2 POC ABG pO2 ABG pO2 ABG HCO3 ABG O2 Saturation ABG Base Excess ABG Hemoglobin ABG Oxyhemoglobin ABG Sodium ABG Potassium ABG Chloride ABG Glucose Oxyhemoglobin Carboxyhemoglobin Sodium 136 L Potassium Chloride 96.0 L Carbon Dioxide 34 H BUN 22 H Creatinine Glucose 140 H POC Glucose Lactic Acid Calcium Magnesium Ferritin 2082.0 H Total Bilirubin Direct Bilirubin AST ALT 75 H Alkaline Phosphatase Lactate Dehydrogenase 601 H C-Reactive Protein 2.70 H Total Protein Albumin 2.9 L Triglycerides Lipase Arterial Blood Glucose Arterial Blood Ionized Calcium Urine WBC (Auto) Coronavirus (PCR) SARS-CoV-2 IgG Ab Crossmatch 05/17/20 05/18/20 05/20/20 05:50 12:22 08:16 WBC RBC Hgb Hct MCV 98 H MCH 33 H MCHC RDW Lymph % (Auto) 8.0 L [place] % (Auto) Lymph # (Auto) 0.8 L [place] # (Auto) Baso # (Auto) Seg Neutrophils % 89.3 H Seg Neuts % (Manual) Lymphocytes % (Manual) Nucleated RBC % Seg Neutrophils # 8.8 H Seg Neutrophils # Man Lymphocytes # (Manual) Monocytes # (Manual) Eosinophils # (Manual) PT INR APTT D-Dimer 1887.82 H Heparin Anti-Xa Level ABG pH POC ABG pCO2 POC ABG pO2 ABG pO2 ABG HCO3 ABG O2 Saturation ABG Base Excess ABG Hemoglobin ABG Oxyhemoglobin ABG Sodium ABG Potassium ABG Chloride ABG Glucose Oxyhemoglobin Carboxyhemoglobin Sodium Potassium Chloride Carbon Dioxide BUN Creatinine Glucose POC Glucose 178 H Lactic Acid Calcium Magnesium Ferritin Total Bilirubin Direct Bilirubin AST ALT Alkaline Phosphatase Lactate Dehydrogenase C-Reactive Protein Total Protein Albumin Triglycerides Lipase Arterial Blood Glucose Arterial Blood Ionized Calcium Urine WBC (Auto) Coronavirus (PCR) SARS-CoV-2 IgG Ab Crossmatch 05/20/20 05/20/20 05/21/20 08:16 08:16 21:10 WBC RBC Hgb Hct MCV MCH MCHC RDW Lymph % (Auto) [place] % (Auto) Lymph # (Auto) [place] # (Auto) Baso # (Auto) Seg Neutrophils % Seg Neuts % (Manual) Lymphocytes % (Manual) Nucleated RBC % Seg Neutrophils # Seg Neutrophils # Man Lymphocytes # (Manual) Monocytes # (Manual) Eosinophils # (Manual) PT INR APTT D-Dimer Heparin Anti-Xa Level ABG pH 7.483 H POC ABG pCO2 POC ABG pO2 ABG pO2 50.0 L ABG HCO3 27.0 H ABG O2 Saturation 86.2 L ABG Base Excess 3.7 H ABG Hemoglobin ABG Oxyhemoglobin ABG Sodium ABG Potassium ABG Chloride ABG Glucose Oxyhemoglobin 84.2 L Carboxyhemoglobin Sodium Potassium Chloride Carbon Dioxide BUN Creatinine Glucose POC Glucose Lactic Acid Calcium Magnesium Ferritin 1960.0 H Total Bilirubin Direct Bilirubin AST ALT Alkaline Phosphatase Lactate Dehydrogenase 705 H C-Reactive Protein 3.10 H Total Protein Albumin Triglycerides Lipase Arterial Blood Glucose Arterial Blood Ionized Calcium Urine WBC (Auto) Coronavirus (PCR) SARS-CoV-2 IgG Ab Crossmatch 05/22/20 05/22/20 05/22/20 04:01 07:53 07:53 WBC 19.2 H RBC Hgb Hct MCV 98 H MCH 34 H MCHC RDW Lymph % (Auto) [place] % (Auto) Lymph # (Auto) [place] # (Auto) Baso # (Auto) Seg Neutrophils % Seg Neuts % (Manual) 96.0 H Lymphocytes % (Manual) 1.0 L Nucleated RBC % Seg Neutrophils # Seg Neutrophils # Man 18.4 H Lymphocytes # (Manual) 0.2 L Monocytes # (Manual) Eosinophils # (Manual) PT INR APTT D-Dimer Heparin Anti-Xa Level ABG pH POC ABG pCO2 53.8 H POC ABG pO2 125.5 H ABG pO2 ABG HCO3 ABG O2 Saturation ABG Base Excess ABG Hemoglobin ABG Oxyhemoglobin ABG Sodium 131.8 L ABG Potassium 4.8 H ABG Chloride 94.0 L ABG Glucose 163 H Oxyhemoglobin Carboxyhemoglobin Sodium 131 L Potassium Chloride 93.4 L Carbon Dioxide BUN 40 H Creatinine Glucose 176 H POC Glucose Lactic Acid Calcium Magnesium 2.70 H Ferritin Total Bilirubin 1.80 H Direct Bilirubin AST 45 H ALT 116 H Alkaline Phosphatase 181 H Lactate Dehydrogenase C-Reactive Protein Total Protein Albumin 2.6 L Triglycerides Lipase Arterial Blood Glucose 163 H Arterial Blood Ionized Calcium 4.5 L Urine WBC (Auto) Coronavirus (PCR) SARS-CoV-2 IgG Ab Crossmatch 05/23/20 05/24/20 05/24/20 04:17 03:07 04:08 WBC RBC Hgb Hct MCV MCH MCHC RDW Lymph % (Auto) [place] % (Auto) Lymph # (Auto) [place] # (Auto) Baso # (Auto) Seg Neutrophils % Seg Neuts % (Manual) Lymphocytes % (Manual) Nucleated RBC % Seg Neutrophils # Seg Neutrophils # Man Lymphocytes # (Manual) Monocytes # (Manual) Eosinophils # (Manual) PT INR APTT D-Dimer Heparin Anti-Xa Level ABG pH 7.328 L POC ABG pCO2 POC ABG pO2 ABG pO2 72.8 L 73.4 L ABG HCO3 31.0 H 34.0 H ABG O2 Saturation 93.5 L ABG Base Excess 3.5 H 7.7 H ABG Hemoglobin 13.3 L 12.1 L ABG Oxyhemoglobin ABG Sodium ABG Potassium ABG Chloride ABG Glucose Oxyhemoglobin 91.5 L 94.3 L Carboxyhemoglobin Sodium Potassium Chloride Carbon Dioxide BUN Creatinine Glucose POC Glucose 155 H Lactic Acid Calcium Magnesium Ferritin Total Bilirubin Direct Bilirubin AST ALT Alkaline Phosphatase Lactate Dehydrogenase C-Reactive Protein Total Protein Albumin Triglycerides Lipase Arterial Blood Glucose Arterial Blood Ionized Calcium Urine WBC (Auto) Coronavirus (PCR) SARS-CoV-2 IgG Ab Crossmatch 05/24/20 05/24/20 05/24/20 09:33 12:21 17:52 WBC RBC Hgb Hct MCV MCH MCHC RDW Lymph % (Auto) [place] % (Auto) Lymph # (Auto) [place] # (Auto) Baso # (Auto) Seg Neutrophils % Seg Neuts % (Manual) Lymphocytes % (Manual) Nucleated RBC % Seg Neutrophils # Seg Neutrophils # Man Lymphocytes # (Manual) Monocytes # (Manual) Eosinophils # (Manual) PT INR APTT D-Dimer Heparin Anti-Xa Level ABG pH POC ABG pCO2 POC ABG pO2 ABG pO2 ABG HCO3 ABG O2 Saturation ABG Base Excess ABG Hemoglobin ABG Oxyhemoglobin ABG Sodium ABG Potassium ABG Chloride ABG Glucose Oxyhemoglobin Carboxyhemoglobin Sodium Potassium Chloride Carbon Dioxide 34 H D BUN 28 H Creatinine 0.7 L Glucose 168 H POC Glucose 173 H 164 H Lactic Acid Calcium Magnesium Ferritin Total Bilirubin Direct Bilirubin AST ALT Alkaline Phosphatase Lactate Dehydrogenase C-Reactive Protein Total Protein Albumin Triglycerides Lipase Arterial Blood Glucose Arterial Blood Ionized Calcium Urine WBC (Auto) Coronavirus (PCR) SARS-CoV-2 IgG Ab Crossmatch 05/24/20 05/25/20 05/25/20 23:47 04:29 05:46 WBC RBC Hgb Hct MCV MCH MCHC RDW Lymph % (Auto) [place] % (Auto) Lymph # (Auto) [place] # (Auto) Baso # (Auto) Seg Neutrophils % Seg Neuts % (Manual) Lymphocytes % (Manual) Nucleated RBC % Seg Neutrophils # Seg Neutrophils # Man Lymphocytes # (Manual) Monocytes # (Manual) Eosinophils # (Manual) PT INR APTT D-Dimer Heparin Anti-Xa Level ABG pH POC ABG pCO2 68.6 H POC ABG pO2 ABG pO2 ABG HCO3 ABG O2 Saturation ABG Base Excess ABG Hemoglobin ABG Oxyhemoglobin ABG Sodium ABG Potassium 4.7 H ABG Chloride ABG Glucose 226 H Oxyhemoglobin Carboxyhemoglobin Sodium Potassium Chloride Carbon Dioxide BUN Creatinine Glucose POC Glucose 171 H 201 H Lactic Acid Calcium Magnesium Ferritin Total Bilirubin Direct Bilirubin AST ALT Alkaline Phosphatase Lactate Dehydrogenase C-Reactive Protein Total Protein Albumin Triglycerides Lipase Arterial Blood Glucose 226 H Arterial Blood Ionized Calcium Urine WBC (Auto) Coronavirus (PCR) SARS-CoV-2 IgG Ab Crossmatch 05/25/20 05/25/20 05/25/20 08:37 08:37 12:38 WBC 12.0 H RBC 3.64 L Hgb Hct MCV 99 H MCH 33 H MCHC RDW Lymph % (Auto) [place] % (Auto) Lymph # (Auto) [place] # (Auto) Baso # (Auto) Seg Neutrophils % Seg Neuts % (Manual) Lymphocytes % (Manual) Nucleated RBC % Seg Neutrophils # Seg Neutrophils # Man Lymphocytes # (Manual) Monocytes # (Manual) Eosinophils # (Manual) PT INR APTT D-Dimer Heparin Anti-Xa Level ABG pH POC ABG pCO2 POC ABG pO2 ABG pO2 ABG HCO3 ABG O2 Saturation ABG Base Excess ABG Hemoglobin ABG Oxyhemoglobin ABG Sodium ABG Potassium ABG Chloride ABG Glucose Oxyhemoglobin Carboxyhemoglobin Sodium Potassium Chloride 97.3 L Carbon Dioxide 35 H BUN 25 H Creatinine 0.7 L Glucose 191 H POC Glucose 182 H Lactic Acid Calcium Magnesium Ferritin Total Bilirubin Direct Bilirubin AST ALT Alkaline Phosphatase Lactate Dehydrogenase C-Reactive Protein Total Protein Albumin Triglycerides Lipase Arterial Blood Glucose Arterial Blood Ionized Calcium Urine WBC (Auto) Coronavirus (PCR) SARS-CoV-2 IgG Ab Crossmatch 05/25/20 05/26/20 05/26/20 18:16 00:06 04:50 WBC RBC Hgb Hct MCV MCH MCHC RDW Lymph % (Auto) [place] % (Auto) Lymph # (Auto) [place] # (Auto) Baso # (Auto) Seg Neutrophils % Seg Neuts % (Manual) Lymphocytes % (Manual) Nucleated RBC % Seg Neutrophils # Seg Neutrophils # Man Lymphocytes # (Manual) Monocytes # (Manual) Eosinophils # (Manual) PT INR APTT D-Dimer Heparin Anti-Xa Level ABG pH POC ABG pCO2 POC ABG pO2 ABG pO2 221.5 H ABG HCO3 40.4 H ABG O2 Saturation 99.3 H ABG Base Excess 12.8 H ABG Hemoglobin 10.4 L ABG Oxyhemoglobin ABG Sodium ABG Potassium ABG Chloride ABG Glucose Oxyhemoglobin Carboxyhemoglobin Sodium Potassium Chloride Carbon Dioxide BUN Creatinine Glucose POC Glucose 176 H 152 H Lactic Acid Calcium Magnesium Ferritin Total Bilirubin Direct Bilirubin AST ALT Alkaline Phosphatase Lactate Dehydrogenase C-Reactive Protein Total Protein Albumin Triglycerides Lipase Arterial Blood Glucose Arterial Blood Ionized Calcium Urine WBC (Auto) Coronavirus (PCR) SARS-CoV-2 IgG Ab Crossmatch 05/26/20 05/26/20 05/26/20 06:11 07:51 07:51 WBC 13.4 H RBC 3.64 L Hgb Hct MCV 98 H MCH 33 H MCHC RDW Lymph % (Auto) [place] % (Auto) Lymph # (Auto) [place] # (Auto) Baso # (Auto) Seg Neutrophils % Seg Neuts % (Manual) Lymphocytes % (Manual) Nucleated RBC % Seg Neutrophils # Seg Neutrophils # Man Lymphocytes # (Manual) Monocytes # (Manual) Eosinophils # (Manual) PT INR APTT D-Dimer Heparin Anti-Xa Level ABG pH POC ABG pCO2 POC ABG pO2 ABG pO2 ABG HCO3 ABG O2 Saturation ABG Base Excess ABG Hemoglobin ABG Oxyhemoglobin ABG Sodium ABG Potassium ABG Chloride ABG Glucose Oxyhemoglobin Carboxyhemoglobin Sodium Potassium Chloride 96.6 L Carbon Dioxide 39 H BUN 29 H Creatinine 0.7 L Glucose 174 H POC Glucose 165 H Lactic Acid Calcium Magnesium Ferritin Total Bilirubin Direct Bilirubin AST ALT Alkaline Phosphatase Lactate Dehydrogenase C-Reactive Protein Total Protein Albumin Triglycerides Lipase Arterial Blood Glucose Arterial Blood Ionized Calcium Urine WBC (Auto) Coronavirus (PCR) SARS-CoV-2 IgG Ab Crossmatch 05/26/20 05/27/20 05/27/20 23:23 03:43 05:29 WBC RBC Hgb Hct MCV MCH MCHC RDW Lymph % (Auto) [place] % (Auto) Lymph # (Auto) [place] # (Auto) Baso # (Auto) Seg Neutrophils % Seg Neuts % (Manual) Lymphocytes % (Manual) Nucleated RBC % Seg Neutrophils # Seg Neutrophils # Man Lymphocytes # (Manual) Monocytes # (Manual) Eosinophils # (Manual) PT INR APTT D-Dimer Heparin Anti-Xa Level ABG pH 7.480 H POC ABG pCO2 52.4 H POC ABG pO2 61.4 L ABG pO2 ABG HCO3 ABG O2 Saturation ABG Base Excess ABG Hemoglobin ABG Oxyhemoglobin ABG Sodium 134.9 L ABG Potassium ABG Chloride 95.0 L ABG Glucose 221 H Oxyhemoglobin Carboxyhemoglobin Sodium Potassium Chloride Carbon Dioxide BUN Creatinine Glucose POC Glucose 169 H 227 H Lactic Acid Calcium Magnesium Ferritin Total Bilirubin Direct Bilirubin AST ALT Alkaline Phosphatase Lactate Dehydrogenase C-Reactive Protein Total Protein Albumin Triglycerides Lipase Arterial Blood Glucose 221 H Arterial Blood Ionized Calcium 4.5 L Urine WBC (Auto) Coronavirus (PCR) SARS-CoV-2 IgG Ab Crossmatch 05/27/20 05/27/20 05/27/20 07:19 12:18 13:50 WBC RBC Hgb Hct MCV MCH MCHC RDW Lymph % (Auto) [place] % (Auto) Lymph # (Auto) [place] # (Auto) Baso # (Auto) Seg Neutrophils % Seg Neuts % (Manual) Lymphocytes % (Manual) Nucleated RBC % Seg Neutrophils # Seg Neutrophils # Man Lymphocytes # (Manual) Monocytes # (Manual) Eosinophils # (Manual) PT INR APTT D-Dimer Heparin Anti-Xa Level ABG pH POC ABG pCO2 POC ABG pO2 ABG pO2 ABG HCO3 ABG O2 Saturation ABG Base Excess ABG Hemoglobin ABG Oxyhemoglobin ABG Sodium ABG Potassium ABG Chloride ABG Glucose Oxyhemoglobin Carboxyhemoglobin Sodium Potassium Chloride Carbon Dioxide BUN Creatinine Glucose POC Glucose 114 H 148 H Lactic Acid Calcium Magnesium Ferritin Total Bilirubin Direct Bilirubin AST ALT Alkaline Phosphatase Lactate Dehydrogenase C-Reactive Protein Total Protein Albumin Triglycerides 247 H Lipase Arterial Blood Glucose Arterial Blood Ionized Calcium Urine WBC (Auto) Coronavirus (PCR) SARS-CoV-2 IgG Ab Crossmatch 05/28/20 05/28/20 05/28/20 00:13 04:16 05:22 WBC RBC Hgb Hct MCV MCH MCHC RDW Lymph % (Auto) [place] % (Auto) Lymph # (Auto) [place] # (Auto) Baso # (Auto) Seg Neutrophils % Seg Neuts % (Manual) Lymphocytes % (Manual) Nucleated RBC % Seg Neutrophils # Seg Neutrophils # Man Lymphocytes # (Manual) Monocytes # (Manual) Eosinophils # (Manual) PT INR APTT D-Dimer Heparin Anti-Xa Level ABG pH POC ABG pCO2 64.4 H POC ABG pO2 60.5 L ABG pO2 ABG HCO3 ABG O2 Saturation ABG Base Excess ABG Hemoglobin ABG Oxyhemoglobin ABG Sodium ABG Potassium ABG Chloride 95.0 L ABG Glucose 209 H Oxyhemoglobin Carboxyhemoglobin Sodium Potassium Chloride Carbon Dioxide BUN Creatinine Glucose POC Glucose 155 H 186 H Lactic Acid Calcium Magnesium Ferritin Total Bilirubin Direct Bilirubin AST ALT Alkaline Phosphatase Lactate Dehydrogenase C-Reactive Protein Total Protein Albumin Triglycerides Lipase Arterial Blood Glucose 209 H Arterial Blood Ionized Calcium Urine WBC (Auto) Coronavirus (PCR) SARS-CoV-2 IgG Ab Crossmatch 05/28/20 05/28/20 05/29/20 12:45 17:39 00:37 WBC RBC Hgb Hct MCV MCH MCHC RDW Lymph % (Auto) [place] % (Auto) Lymph # (Auto) [place] # (Auto) Baso # (Auto) Seg Neutrophils % Seg Neuts % (Manual) Lymphocytes % (Manual) Nucleated RBC % Seg Neutrophils # Seg Neutrophils # Man Lymphocytes # (Manual) Monocytes # (Manual) Eosinophils # (Manual) PT INR APTT D-Dimer Heparin Anti-Xa Level ABG pH POC ABG pCO2 POC ABG pO2 ABG pO2 ABG HCO3 ABG O2 Saturation ABG Base Excess ABG Hemoglobin ABG Oxyhemoglobin ABG Sodium ABG Potassium ABG Chloride ABG Glucose Oxyhemoglobin Carboxyhemoglobin Sodium Potassium Chloride Carbon Dioxide BUN Creatinine Glucose POC Glucose 143 H 164 H 221 H Lactic Acid Calcium Magnesium Ferritin Total Bilirubin Direct Bilirubin AST ALT Alkaline Phosphatase Lactate Dehydrogenase C-Reactive Protein Total Protein Albumin Triglycerides Lipase Arterial Blood Glucose Arterial Blood Ionized Calcium Urine WBC (Auto) Coronavirus (PCR) SARS-CoV-2 IgG Ab Crossmatch 05/29/20 05/29/20 05/29/20 04:15 05:33 12:34 WBC RBC Hgb Hct MCV MCH MCHC RDW Lymph % (Auto) [place] % (Auto) Lymph # (Auto) [place] # (Auto) Baso # (Auto) Seg Neutrophils % Seg Neuts % (Manual) Lymphocytes % (Manual) Nucleated RBC % Seg Neutrophils # Seg Neutrophils # Man Lymphocytes # (Manual) Monocytes # (Manual) Eosinophils # (Manual) PT INR APTT D-Dimer Heparin Anti-Xa Level ABG pH 7.463 H POC ABG pCO2 56.3 H POC ABG pO2 81.2 L ABG pO2 ABG HCO3 ABG O2 Saturation ABG Base Excess ABG Hemoglobin ABG Oxyhemoglobin ABG Sodium ABG Potassium ABG Chloride 96.0 L ABG Glucose 194 H Oxyhemoglobin Carboxyhemoglobin Sodium Potassium Chloride Carbon Dioxide BUN Creatinine Glucose POC Glucose 133 H 221 H Lactic Acid Calcium Magnesium Ferritin Total Bilirubin Direct Bilirubin AST ALT Alkaline Phosphatase Lactate Dehydrogenase C-Reactive Protein Total Protein Albumin Triglycerides Lipase Arterial Blood Glucose 194 H Arterial Blood Ionized Calcium 4.5 L Urine WBC (Auto) Coronavirus (PCR) SARS-CoV-2 IgG Ab Crossmatch 05/29/20 05/30/20 05/30/20 18:07 00:12 05:38 WBC RBC Hgb Hct MCV MCH MCHC RDW Lymph % (Auto) [place] % (Auto) Lymph # (Auto) [place] # (Auto) Baso # (Auto) Seg Neutrophils % Seg Neuts % (Manual) Lymphocytes % (Manual) Nucleated RBC % Seg Neutrophils # Seg Neutrophils # Man Lymphocytes # (Manual) Monocytes # (Manual) Eosinophils # (Manual) PT INR APTT D-Dimer Heparin Anti-Xa Level ABG pH POC ABG pCO2 POC ABG pO2 ABG pO2 ABG HCO3 ABG O2 Saturation ABG Base Excess ABG Hemoglobin ABG Oxyhemoglobin ABG Sodium ABG Potassium ABG Chloride ABG Glucose Oxyhemoglobin Carboxyhemoglobin Sodium Potassium Chloride Carbon Dioxide BUN Creatinine Glucose POC Glucose 162 H 190 H 208 H Lactic Acid Calcium Magnesium Ferritin Total Bilirubin Direct Bilirubin AST ALT Alkaline Phosphatase Lactate Dehydrogenase C-Reactive Protein Total Protein Albumin Triglycerides Lipase Arterial Blood Glucose Arterial Blood Ionized Calcium Urine WBC (Auto) Coronavirus (PCR) SARS-CoV-2 IgG Ab Crossmatch 05/30/20 05/30/20 05/30/20 09:30 11:35 11:54 WBC 12.4 H RBC 3.48 L Hgb 11.3 L Hct 34.6 L MCV 99 H MCH 33 H MCHC RDW Lymph % (Auto) [place] % (Auto) Lymph # (Auto) [place] # (Auto) Baso # (Auto) Seg Neutrophils % Seg Neuts % (Manual) Lymphocytes % (Manual) Nucleated RBC % Seg Neutrophils # Seg Neutrophils # Man Lymphocytes # (Manual) Monocytes # (Manual) Eosinophils # (Manual) PT INR APTT D-Dimer Heparin Anti-Xa Level ABG pH 7.455 H POC ABG pCO2 57.5 H POC ABG pO2 81.5 L ABG pO2 ABG HCO3 ABG O2 Saturation ABG Base Excess ABG Hemoglobin ABG Oxyhemoglobin ABG Sodium ABG Potassium ABG Chloride 96.0 L ABG Glucose 204 H Oxyhemoglobin Carboxyhemoglobin Sodium Potassium Chloride Carbon Dioxide BUN Creatinine Glucose POC Glucose 183 H Lactic Acid Calcium Magnesium Ferritin Total Bilirubin Direct Bilirubin AST ALT Alkaline Phosphatase Lactate Dehydrogenase C-Reactive Protein Total Protein Albumin Triglycerides Lipase Arterial Blood Glucose 204 H Arterial Blood Ionized Calcium Urine WBC (Auto) Coronavirus (PCR) SARS-CoV-2 IgG Ab Crossmatch 05/30/20 05/31/20 05/31/20 18:01 00:10 03:22 WBC RBC Hgb Hct MCV MCH MCHC RDW Lymph % (Auto) [place] % (Auto) Lymph # (Auto) [place] # (Auto) Baso # (Auto) Seg Neutrophils % Seg Neuts % (Manual) Lymphocytes % (Manual) Nucleated RBC % Seg Neutrophils # Seg Neutrophils # Man Lymphocytes # (Manual) Monocytes # (Manual) Eosinophils # (Manual) PT INR APTT D-Dimer Heparin Anti-Xa Level ABG pH POC ABG pCO2 60.4 H POC ABG pO2 71.5 L ABG pO2 ABG HCO3 ABG O2 Saturation ABG Base Excess ABG Hemoglobin ABG Oxyhemoglobin ABG Sodium ABG Potassium ABG Chloride 96.0 L ABG Glucose 169 H Oxyhemoglobin Carboxyhemoglobin Sodium Potassium Chloride Carbon Dioxide BUN Creatinine Glucose POC Glucose 184 H 135 H Lactic Acid Calcium Magnesium Ferritin Total Bilirubin Direct Bilirubin AST ALT Alkaline Phosphatase Lactate Dehydrogenase C-Reactive Protein Total Protein Albumin Triglycerides Lipase Arterial Blood Glucose 169 H Arterial Blood Ionized Calcium 4.5 L Urine WBC (Auto) Coronavirus (PCR) SARS-CoV-2 IgG Ab Crossmatch 05/31/20 05/31/20 05/31/20 05:24 11:18 14:41 WBC RBC Hgb Hct MCV MCH MCHC RDW Lymph % (Auto) [place] % (Auto) Lymph # (Auto) [place] # (Auto) Baso # (Auto) Seg Neutrophils % Seg Neuts % (Manual) Lymphocytes % (Manual) Nucleated RBC % Seg Neutrophils # Seg Neutrophils # Man Lymphocytes # (Manual) Monocytes # (Manual) Eosinophils # (Manual) PT INR APTT D-Dimer Heparin Anti-Xa Level ABG pH POC ABG pCO2 POC ABG pO2 ABG pO2 ABG HCO3 ABG O2 Saturation ABG Base Excess ABG Hemoglobin ABG Oxyhemoglobin ABG Sodium ABG Potassium ABG Chloride ABG Glucose Oxyhemoglobin Carboxyhemoglobin Sodium Potassium Chloride 96.8 L Carbon Dioxide 37 H BUN 31 H Creatinine 0.6 L Glucose 213 H POC Glucose 164 H 208 H Lactic Acid Calcium Magnesium Ferritin Total Bilirubin Direct Bilirubin AST ALT Alkaline Phosphatase Lactate Dehydrogenase C-Reactive Protein Total Protein Albumin Triglycerides Lipase Arterial Blood Glucose Arterial Blood Ionized Calcium Urine WBC (Auto) Coronavirus (PCR) SARS-CoV-2 IgG Ab Crossmatch 05/31/20 05/31/20 06/01/20 17:37 23:47 03:48 WBC RBC Hgb Hct MCV MCH MCHC RDW Lymph % (Auto) [place] % (Auto) Lymph # (Auto) [place] # (Auto) Baso # (Auto) Seg Neutrophils % Seg Neuts % (Manual) Lymphocytes % (Manual) Nucleated RBC % Seg Neutrophils # Seg Neutrophils # Man Lymphocytes # (Manual) Monocytes # (Manual) Eosinophils # (Manual) PT INR APTT D-Dimer Heparin Anti-Xa Level ABG pH POC ABG pCO2 59.7 H POC ABG pO2 73.9 L ABG pO2 ABG HCO3 ABG O2 Saturation ABG Base Excess ABG Hemoglobin ABG Oxyhemoglobin ABG Sodium ABG Potassium ABG Chloride 95.0 L ABG Glucose 256 H Oxyhemoglobin Carboxyhemoglobin Sodium Potassium Chloride Carbon Dioxide BUN Creatinine Glucose POC Glucose 168 H 178 H Lactic Acid Calcium Magnesium Ferritin Total Bilirubin Direct Bilirubin AST ALT Alkaline Phosphatase Lactate Dehydrogenase C-Reactive Protein Total Protein Albumin Triglycerides Lipase Arterial Blood Glucose 256 H Arterial Blood Ionized Calcium Urine WBC (Auto) Coronavirus (PCR) SARS-CoV-2 IgG Ab Crossmatch 06/01/20 06/01/20 06/01/20 05:01 07:47 07:47 WBC 14.4 H RBC 3.46 L Hgb 11.1 L Hct 34.3 L MCV 99 H MCH MCHC RDW Lymph % (Auto) [place] % (Auto) Lymph # (Auto) [place] # (Auto) Baso # (Auto) Seg Neutrophils % Seg Neuts % (Manual) 86.0 H Lymphocytes % (Manual) 9.0 L Nucleated RBC % Seg Neutrophils # Seg Neutrophils # Man 12.4 H Lymphocytes # (Manual) Monocytes # (Manual) Eosinophils # (Manual) PT INR APTT D-Dimer Heparin Anti-Xa Level ABG pH POC ABG pCO2 POC ABG pO2 ABG pO2 ABG HCO3 ABG O2 Saturation ABG Base Excess ABG Hemoglobin ABG Oxyhemoglobin ABG Sodium ABG Potassium ABG Chloride ABG Glucose Oxyhemoglobin Carboxyhemoglobin Sodium Potassium Chloride Carbon Dioxide BUN Creatinine Glucose POC Glucose 197 H Lactic Acid Calcium Magnesium Ferritin Total Bilirubin Direct Bilirubin AST ALT Alkaline Phosphatase Lactate Dehydrogenase C-Reactive Protein Total Protein Albumin Triglycerides 244 H Lipase Arterial Blood Glucose Arterial Blood Ionized Calcium Urine WBC (Auto) Coronavirus (PCR) SARS-CoV-2 IgG Ab Crossmatch 06/01/20 06/01/20 06/01/20 07:47 11:46 18:15 WBC RBC Hgb Hct MCV MCH MCHC RDW Lymph % (Auto) [place] % (Auto) Lymph # (Auto) [place] # (Auto) Baso # (Auto) Seg Neutrophils % Seg Neuts % (Manual) Lymphocytes % (Manual) Nucleated RBC % Seg Neutrophils # Seg Neutrophils # Man Lymphocytes # (Manual) Monocytes # (Manual) Eosinophils # (Manual) PT INR APTT D-Dimer Heparin Anti-Xa Level ABG pH POC ABG pCO2 POC ABG pO2 ABG pO2 ABG HCO3 ABG O2 Saturation ABG Base Excess ABG Hemoglobin ABG Oxyhemoglobin ABG Sodium ABG Potassium ABG Chloride ABG Glucose Oxyhemoglobin Carboxyhemoglobin Sodium Potassium Chloride 95.4 L Carbon Dioxide 35 H BUN 30 H Creatinine 0.5 L Glucose 214 H POC Glucose 181 H 221 H Lactic Acid Calcium Magnesium Ferritin Total Bilirubin Direct Bilirubin AST 54 H ALT 235 H Alkaline Phosphatase Lactate Dehydrogenase C-Reactive Protein Total Protein Albumin 2.9 L Triglycerides Lipase Arterial Blood Glucose Arterial Blood Ionized Calcium Urine WBC (Auto) Coronavirus (PCR) SARS-CoV-2 IgG Ab Crossmatch 06/01/20 06/02/20 06/02/20 23:12 04:00 05:31 WBC RBC Hgb Hct MCV MCH MCHC RDW Lymph % (Auto) [place] % (Auto) Lymph # (Auto) [place] # (Auto) Baso # (Auto) Seg Neutrophils % Seg Neuts % (Manual) Lymphocytes % (Manual) Nucleated RBC % Seg Neutrophils # Seg Neutrophils # Man Lymphocytes # (Manual) Monocytes # (Manual) Eosinophils # (Manual) PT INR APTT D-Dimer Heparin Anti-Xa Level ABG pH 7.465 H POC ABG pCO2 POC ABG pO2 ABG pO2 203.4 H ABG HCO3 41.2 H ABG O2 Saturation 99.3 H ABG Base Excess 15.1 H ABG Hemoglobin 11.5 L ABG Oxyhemoglobin ABG Sodium ABG Potassium ABG Chloride ABG Glucose Oxyhemoglobin Carboxyhemoglobin Sodium Potassium Chloride Carbon Dioxide BUN Creatinine Glucose POC Glucose 197 H 184 H Lactic Acid Calcium Magnesium Ferritin Total Bilirubin Direct Bilirubin AST ALT Alkaline Phosphatase Lactate Dehydrogenase C-Reactive Protein Total Protein Albumin Triglycerides Lipase Arterial Blood Glucose Arterial Blood Ionized Calcium Urine WBC (Auto) Coronavirus (PCR) SARS-CoV-2 IgG Ab Crossmatch 06/02/20 06/02/20 06/02/20 11:49 18:06 23:00 WBC RBC Hgb Hct MCV MCH MCHC RDW Lymph % (Auto) [place] % (Auto) Lymph # (Auto) [place] # (Auto) Baso # (Auto) Seg Neutrophils % Seg Neuts % (Manual) Lymphocytes % (Manual) Nucleated RBC % Seg Neutrophils # Seg Neutrophils # Man Lymphocytes # (Manual) Monocytes # (Manual) Eosinophils # (Manual) PT INR APTT D-Dimer Heparin Anti-Xa Level ABG pH POC ABG pCO2 POC ABG pO2 ABG pO2 ABG HCO3 ABG O2 Saturation ABG Base Excess ABG Hemoglobin ABG Oxyhemoglobin ABG Sodium ABG Potassium ABG Chloride ABG Glucose Oxyhemoglobin Carboxyhemoglobin Sodium Potassium Chloride Carbon Dioxide BUN Creatinine Glucose POC Glucose 195 H 177 H 228 H Lactic Acid Calcium Magnesium Ferritin Total Bilirubin Direct Bilirubin AST ALT Alkaline Phosphatase Lactate Dehydrogenase C-Reactive Protein Total Protein Albumin Triglycerides Lipase Arterial Blood Glucose Arterial Blood Ionized Calcium Urine WBC (Auto) Coronavirus (PCR) SARS-CoV-2 IgG Ab Crossmatch 06/03/20 06/03/20 06/03/20 03:58 05:19 12:21 WBC RBC Hgb Hct MCV MCH MCHC RDW Lymph % (Auto) [place] % (Auto) Lymph # (Auto) [place] # (Auto) Baso # (Auto) Seg Neutrophils % Seg Neuts % (Manual) Lymphocytes % (Manual) Nucleated RBC % Seg Neutrophils # Seg Neutrophils # Man Lymphocytes # (Manual) Monocytes # (Manual) Eosinophils # (Manual) PT INR APTT D-Dimer Heparin Anti-Xa Level ABG pH POC ABG pCO2 POC ABG pO2 ABG pO2 171.0 H ABG HCO3 42.8 H ABG O2 Saturation ABG Base Excess 15.6 H ABG Hemoglobin 12.3 L ABG Oxyhemoglobin ABG Sodium ABG Potassium ABG Chloride ABG Glucose Oxyhemoglobin Carboxyhemoglobin Sodium Potassium Chloride Carbon Dioxide BUN Creatinine Glucose POC Glucose 122 H 207 H Lactic Acid Calcium Magnesium Ferritin Total Bilirubin Direct Bilirubin AST ALT Alkaline Phosphatase Lactate Dehydrogenase C-Reactive Protein Total Protein Albumin Triglycerides Lipase Arterial Blood Glucose Arterial Blood Ionized Calcium Urine WBC (Auto) Coronavirus (PCR) SARS-CoV-2 IgG Ab Crossmatch 06/03/20 06/03/20 06/04/20 17:27 23:50 03:55 WBC RBC Hgb Hct MCV MCH MCHC RDW Lymph % (Auto) [place] % (Auto) Lymph # (Auto) [place] # (Auto) Baso # (Auto) Seg Neutrophils % Seg Neuts % (Manual) Lymphocytes % (Manual) Nucleated RBC % Seg Neutrophils # Seg Neutrophils # Man Lymphocytes # (Manual) Monocytes # (Manual) Eosinophils # (Manual) PT INR APTT D-Dimer Heparin Anti-Xa Level ABG pH POC ABG pCO2 POC ABG pO2 ABG pO2 117.2 H ABG HCO3 42.4 H ABG O2 Saturation ABG Base Excess 15.3 H ABG Hemoglobin 10.5 L ABG Oxyhemoglobin ABG Sodium ABG Potassium ABG Chloride ABG Glucose Oxyhemoglobin Carboxyhemoglobin Sodium Potassium Chloride Carbon Dioxide BUN Creatinine Glucose POC Glucose 157 H 214 H Lactic Acid Calcium Magnesium Ferritin Total Bilirubin Direct Bilirubin AST ALT Alkaline Phosphatase Lactate Dehydrogenase C-Reactive Protein Total Protein Albumin Triglycerides Lipase Arterial Blood Glucose Arterial Blood Ionized Calcium Urine WBC (Auto) Coronavirus (PCR) SARS-CoV-2 IgG Ab Crossmatch 06/04/20 06/04/20 06/04/20 05:49 11:41 17:30 WBC RBC Hgb Hct MCV MCH MCHC RDW Lymph % (Auto) [place] % (Auto) Lymph # (Auto) [place] # (Auto) Baso # (Auto) Seg Neutrophils % Seg Neuts % (Manual) Lymphocytes % (Manual) Nucleated RBC % Seg Neutrophils # Seg Neutrophils # Man Lymphocytes # (Manual) Monocytes # (Manual) Eosinophils # (Manual) PT INR APTT D-Dimer Heparin Anti-Xa Level ABG pH POC ABG pCO2 POC ABG pO2 ABG pO2 ABG HCO3 ABG O2 Saturation ABG Base Excess ABG Hemoglobin ABG Oxyhemoglobin ABG Sodium ABG Potassium ABG Chloride ABG Glucose Oxyhemoglobin Carboxyhemoglobin Sodium Potassium Chloride Carbon Dioxide BUN Creatinine Glucose POC Glucose 149 H 233 H 156 H Lactic Acid Calcium Magnesium Ferritin Total Bilirubin Direct Bilirubin AST ALT Alkaline Phosphatase Lactate Dehydrogenase C-Reactive Protein Total Protein Albumin Triglycerides Lipase Arterial Blood Glucose Arterial Blood Ionized Calcium Urine WBC (Auto) Coronavirus (PCR) SARS-CoV-2 IgG Ab Crossmatch 06/04/20 06/04/20 06/04/20 19:01 20:53 23:41 WBC RBC 3.18 L Hgb 10.8 L Hct 31.8 L MCV 100 H MCH 34 H MCHC RDW Lymph % (Auto) [place] % (Auto) Lymph # (Auto) [place] # (Auto) Baso # (Auto) Seg Neutrophils % Seg Neuts % (Manual) 86.0 H Lymphocytes % (Manual) 10.0 L Nucleated RBC % 1.0 H Seg Neutrophils # Seg Neutrophils # Man 8.5 H Lymphocytes # (Manual) 1.0 L Monocytes # (Manual) Eosinophils # (Manual) PT INR APTT D-Dimer Heparin Anti-Xa Level ABG pH POC ABG pCO2 POC ABG pO2 ABG pO2 ABG HCO3 ABG O2 Saturation ABG Base Excess ABG Hemoglobin ABG Oxyhemoglobin ABG Sodium ABG Potassium ABG Chloride ABG Glucose Oxyhemoglobin Carboxyhemoglobin Sodium Potassium 3.4 L D Chloride 96.5 L Carbon Dioxide 41 H* BUN 27 H Creatinine 0.5 L Glucose 173 H POC Glucose 217 H Lactic Acid Calcium Magnesium Ferritin Total Bilirubin Direct Bilirubin AST ALT Alkaline Phosphatase Lactate Dehydrogenase C-Reactive Protein Total Protein Albumin Triglycerides Lipase Arterial Blood Glucose Arterial Blood Ionized Calcium Urine WBC (Auto) Coronavirus (PCR) SARS-CoV-2 IgG Ab Crossmatch 06/05/20 06/05/20 06/05/20 06:05 11:54 12:35 WBC RBC Hgb Hct MCV MCH MCHC RDW Lymph % (Auto) [place] % (Auto) Lymph # (Auto) [place] # (Auto) Baso # (Auto) Seg Neutrophils % Seg Neuts % (Manual) Lymphocytes % (Manual) Nucleated RBC % Seg Neutrophils # Seg Neutrophils # Man Lymphocytes # (Manual) Monocytes # (Manual) Eosinophils # (Manual) PT INR APTT D-Dimer Heparin Anti-Xa Level ABG pH POC ABG pCO2 POC ABG pO2 ABG pO2 127.9 H ABG HCO3 41.1 H ABG O2 Saturation ABG Base Excess 13.0 H ABG Hemoglobin 13.4 L ABG Oxyhemoglobin ABG Sodium ABG Potassium ABG Chloride ABG Glucose Oxyhemoglobin Carboxyhemoglobin Sodium Potassium Chloride Carbon Dioxide BUN Creatinine Glucose POC Glucose 137 H 211 H Lactic Acid Calcium Magnesium Ferritin Total Bilirubin Direct Bilirubin AST ALT Alkaline Phosphatase Lactate Dehydrogenase C-Reactive Protein Total Protein Albumin Triglycerides Lipase Arterial Blood Glucose Arterial Blood Ionized Calcium Urine WBC (Auto) Coronavirus (PCR) SARS-CoV-2 IgG Ab Crossmatch 06/05/20 06/05/20 06/06/20 17:03 23:49 04:42 WBC RBC Hgb Hct MCV MCH MCHC RDW Lymph % (Auto) [place] % (Auto) Lymph # (Auto) [place] # (Auto) Baso # (Auto) Seg Neutrophils % Seg Neuts % (Manual) Lymphocytes % (Manual) Nucleated RBC % Seg Neutrophils # Seg Neutrophils # Man Lymphocytes # (Manual) Monocytes # (Manual) Eosinophils # (Manual) PT INR APTT D-Dimer Heparin Anti-Xa Level ABG pH POC ABG pCO2 56.1 H POC ABG pO2 52.5 L ABG pO2 ABG HCO3 ABG O2 Saturation ABG Base Excess ABG Hemoglobin 11.7 L ABG Oxyhemoglobin ABG Sodium ABG Potassium 3.3 L ABG Chloride 95.0 L ABG Glucose 156 H Oxyhemoglobin Carboxyhemoglobin Sodium Potassium Chloride Carbon Dioxide BUN Creatinine Glucose POC Glucose 159 H 194 H Lactic Acid Calcium Magnesium Ferritin Total Bilirubin Direct Bilirubin AST ALT Alkaline Phosphatase Lactate Dehydrogenase C-Reactive Protein Total Protein Albumin Triglycerides Lipase Arterial Blood Glucose 156 H Arterial Blood Ionized Calcium Urine WBC (Auto) Coronavirus (PCR) SARS-CoV-2 IgG Ab Crossmatch 06/06/20 06/06/20 06/06/20 05:57 12:06 17:38 WBC RBC Hgb Hct MCV MCH MCHC RDW Lymph % (Auto) [place] % (Auto) Lymph # (Auto) [place] # (Auto) Baso # (Auto) Seg Neutrophils % Seg Neuts % (Manual) Lymphocytes % (Manual) Nucleated RBC % Seg Neutrophils # Seg Neutrophils # Man Lymphocytes # (Manual) Monocytes # (Manual) Eosinophils # (Manual) PT INR APTT D-Dimer Heparin Anti-Xa Level ABG pH POC ABG pCO2 POC ABG pO2 ABG pO2 ABG HCO3 ABG O2 Saturation ABG Base Excess ABG Hemoglobin ABG Oxyhemoglobin ABG Sodium ABG Potassium ABG Chloride ABG Glucose Oxyhemoglobin Carboxyhemoglobin Sodium Potassium Chloride Carbon Dioxide BUN Creatinine Glucose POC Glucose 144 H 230 H 162 H Lactic Acid Calcium Magnesium Ferritin Total Bilirubin Direct Bilirubin AST ALT Alkaline Phosphatase Lactate Dehydrogenase C-Reactive Protein Total Protein Albumin Triglycerides Lipase Arterial Blood Glucose Arterial Blood Ionized Calcium Urine WBC (Auto) Coronavirus (PCR) SARS-CoV-2 IgG Ab Crossmatch 06/06/20 06/07/20 06/07/20 23:50 04:34 06:03 WBC RBC Hgb Hct MCV MCH MCHC RDW Lymph % (Auto) [place] % (Auto) Lymph # (Auto) [place] # (Auto) Baso # (Auto) Seg Neutrophils % Seg Neuts % (Manual) Lymphocytes % (Manual) Nucleated RBC % Seg Neutrophils # Seg Neutrophils # Man Lymphocytes # (Manual) Monocytes # (Manual) Eosinophils # (Manual) PT INR APTT D-Dimer Heparin Anti-Xa Level ABG pH 7.511 H POC ABG pCO2 53.5 H POC ABG pO2 114.5 H ABG pO2 ABG HCO3 ABG O2 Saturation ABG Base Excess ABG Hemoglobin 9.4 L ABG Oxyhemoglobin ABG Sodium 134.5 L ABG Potassium ABG Chloride 94.0 L ABG Glucose 186 H Oxyhemoglobin Carboxyhemoglobin Sodium Potassium Chloride Carbon Dioxide BUN Creatinine Glucose POC Glucose 181 H 155 H Lactic Acid Calcium Magnesium Ferritin Total Bilirubin Direct Bilirubin AST ALT Alkaline Phosphatase Lactate Dehydrogenase C-Reactive Protein Total Protein Albumin Triglycerides Lipase Arterial Blood Glucose 186 H Arterial Blood Ionized Calcium 4.5 L Urine WBC (Auto) Coronavirus (PCR) SARS-CoV-2 IgG Ab Crossmatch 06/07/20 06/07/20 06/07/20 13:41 14:58 14:58 WBC RBC 2.72 L Hgb 9.3 L Hct 27.2 L MCV 100 H MCH 34 H MCHC RDW Lymph % (Auto) [place] % (Auto) Lymph # (Auto) [place] # (Auto) Baso # (Auto) Seg Neutrophils % Seg Neuts % (Manual) Lymphocytes % (Manual) Nucleated RBC % Seg Neutrophils # Seg Neutrophils # Man Lymphocytes # (Manual) Monocytes # (Manual) Eosinophils # (Manual) PT INR APTT D-Dimer Heparin Anti-Xa Level ABG pH POC ABG pCO2 POC ABG pO2 ABG pO2 ABG HCO3 ABG O2 Saturation ABG Base Excess ABG Hemoglobin ABG Oxyhemoglobin ABG Sodium ABG Potassium ABG Chloride ABG Glucose Oxyhemoglobin Carboxyhemoglobin Sodium Potassium Chloride 93.5 L Carbon Dioxide 39 H BUN 22 H Creatinine 0.4 L Glucose 188 H POC Glucose 201 H Lactic Acid Calcium Magnesium Ferritin Total Bilirubin Direct Bilirubin AST 61 H ALT 273 H Alkaline Phosphatase Lactate Dehydrogenase C-Reactive Protein Total Protein 5.9 L Albumin 2.7 L Triglycerides Lipase Arterial Blood Glucose Arterial Blood Ionized Calcium Urine WBC (Auto) Coronavirus (PCR) SARS-CoV-2 IgG Ab Crossmatch 06/07/20 06/08/20 06/08/20 23:18 05:31 12:07 WBC RBC Hgb Hct MCV MCH MCHC RDW Lymph % (Auto) [place] % (Auto) Lymph # (Auto) [place] # (Auto) Baso # (Auto) Seg Neutrophils % Seg Neuts % (Manual) Lymphocytes % (Manual) Nucleated RBC % Seg Neutrophils # Seg Neutrophils # Man Lymphocytes # (Manual) Monocytes # (Manual) Eosinophils # (Manual) PT INR APTT D-Dimer Heparin Anti-Xa Level ABG pH POC ABG pCO2 POC ABG pO2 ABG pO2 ABG HCO3 ABG O2 Saturation ABG Base Excess ABG Hemoglobin ABG Oxyhemoglobin ABG Sodium ABG Potassium ABG Chloride ABG Glucose Oxyhemoglobin Carboxyhemoglobin Sodium Potassium Chloride Carbon Dioxide BUN Creatinine Glucose POC Glucose 214 H 129 H 179 H Lactic Acid Calcium Magnesium Ferritin Total Bilirubin Direct Bilirubin AST ALT Alkaline Phosphatase Lactate Dehydrogenase C-Reactive Protein Total Protein Albumin Triglycerides Lipase Arterial Blood Glucose Arterial Blood Ionized Calcium Urine WBC (Auto) Coronavirus (PCR) SARS-CoV-2 IgG Ab Crossmatch 06/08/20 06/08/20 06/09/20 18:18 23:35 05:42 WBC RBC Hgb Hct MCV MCH MCHC RDW Lymph % (Auto) [place] % (Auto) Lymph # (Auto) [place] # (Auto) Baso # (Auto) Seg Neutrophils % Seg Neuts % (Manual) Lymphocytes % (Manual) Nucleated RBC % Seg Neutrophils # Seg Neutrophils # Man Lymphocytes # (Manual) Monocytes # (Manual) Eosinophils # (Manual) PT INR APTT D-Dimer Heparin Anti-Xa Level ABG pH POC ABG pCO2 POC ABG pO2 ABG pO2 ABG HCO3 ABG O2 Saturation ABG Base Excess ABG Hemoglobin ABG Oxyhemoglobin ABG Sodium ABG Potassium ABG Chloride ABG Glucose Oxyhemoglobin Carboxyhemoglobin Sodium Potassium Chloride Carbon Dioxide BUN Creatinine Glucose POC Glucose 172 H 177 H 137 H Lactic Acid Calcium Magnesium Ferritin Total Bilirubin Direct Bilirubin AST ALT Alkaline Phosphatase Lactate Dehydrogenase C-Reactive Protein Total Protein Albumin Triglycerides Lipase Arterial Blood Glucose Arterial Blood Ionized Calcium Urine WBC (Auto) Coronavirus (PCR) SARS-CoV-2 IgG Ab Crossmatch 06/09/20 06/09/20 06/09/20 06:20 07:55 07:55 WBC 12.4 H RBC 3.26 L Hgb 11.1 L Hct 33.4 L D MCV 102 H MCH 34 H MCHC RDW Lymph % (Auto) [place] % (Auto) Lymph # (Auto) [place] # (Auto) Baso # (Auto) Seg Neutrophils % Seg Neuts % (Manual) Lymphocytes % (Manual) Nucleated RBC % Seg Neutrophils # Seg Neutrophils # Man Lymphocytes # (Manual) Monocytes # (Manual) Eosinophils # (Manual) PT INR APTT D-Dimer Heparin Anti-Xa Level ABG pH 7.466 H POC ABG pCO2 50.7 H POC ABG pO2 53.0 L ABG pO2 ABG HCO3 ABG O2 Saturation ABG Base Excess ABG Hemoglobin ABG Oxyhemoglobin ABG Sodium ABG Potassium 2.9 L ABG Chloride 93.0 L ABG Glucose 138 H Oxyhemoglobin Carboxyhemoglobin Sodium Potassium 3.0 L Chloride 92.3 L Carbon Dioxide 37 H BUN 21 H Creatinine 0.6 L Glucose 120 H POC Glucose Lactic Acid Calcium Magnesium Ferritin Total Bilirubin Direct Bilirubin AST ALT Alkaline Phosphatase Lactate Dehydrogenase C-Reactive Protein Total Protein Albumin Triglycerides Lipase Arterial Blood Glucose 138 H Arterial Blood Ionized Calcium 4.5 L Urine WBC (Auto) Coronavirus (PCR) SARS-CoV-2 IgG Ab Crossmatch 06/09/20 06/09/20 06/10/20 11:22 18:32 04:46 WBC RBC Hgb Hct MCV MCH MCHC RDW Lymph % (Auto) [place] % (Auto) Lymph # (Auto) [place] # (Auto) Baso # (Auto) Seg Neutrophils % Seg Neuts % (Manual) Lymphocytes % (Manual) Nucleated RBC % Seg Neutrophils # Seg Neutrophils # Man Lymphocytes # (Manual) Monocytes # (Manual) Eosinophils # (Manual) PT INR APTT D-Dimer Heparin Anti-Xa Level ABG pH 7.501 H POC ABG pCO2 POC ABG pO2 126.5 H ABG pO2 ABG HCO3 ABG O2 Saturation ABG Base Excess ABG Hemoglobin 10.3 L ABG Oxyhemoglobin ABG Sodium ABG Potassium ABG Chloride ABG Glucose 220 H Oxyhemoglobin Carboxyhemoglobin Sodium Potassium Chloride Carbon Dioxide BUN Creatinine Glucose POC Glucose 117 H 121 H Lactic Acid Calcium Magnesium Ferritin Total Bilirubin Direct Bilirubin AST ALT Alkaline Phosphatase Lactate Dehydrogenase C-Reactive Protein Total Protein Albumin Triglycerides Lipase Arterial Blood Glucose 220 H Arterial Blood Ionized Calcium Urine WBC (Auto) Coronavirus (PCR) SARS-CoV-2 IgG Ab Crossmatch 06/10/20 06/10/20 06/10/20 05:30 09:38 12:03 WBC RBC Hgb Hct MCV MCH MCHC RDW Lymph % (Auto) [place] % (Auto) Lymph # (Auto) [place] # (Auto) Baso # (Auto) Seg Neutrophils % Seg Neuts % (Manual) Lymphocytes % (Manual) Nucleated RBC % Seg Neutrophils # Seg Neutrophils # Man Lymphocytes # (Manual) Monocytes # (Manual) Eosinophils # (Manual) PT INR APTT D-Dimer Heparin Anti-Xa Level ABG pH POC ABG pCO2 POC ABG pO2 ABG pO2 ABG HCO3 ABG O2 Saturation ABG Base Excess ABG Hemoglobin ABG Oxyhemoglobin ABG Sodium ABG Potassium ABG Chloride ABG Glucose Oxyhemoglobin Carboxyhemoglobin Sodium Potassium Chloride Carbon Dioxide BUN Creatinine Glucose POC Glucose 181 H 204 H Lactic Acid Calcium Magnesium Ferritin Total Bilirubin Direct Bilirubin AST ALT Alkaline Phosphatase Lactate Dehydrogenase C-Reactive Protein Total Protein Albumin Triglycerides 738 H Lipase Arterial Blood Glucose Arterial Blood Ionized Calcium Urine WBC (Auto) Coronavirus (PCR) SARS-CoV-2 IgG Ab Crossmatch 06/10/20 06/11/20 06/11/20 17:17 00:04 04:38 WBC RBC Hgb Hct MCV MCH MCHC RDW Lymph % (Auto) [place] % (Auto) Lymph # (Auto) [place] # (Auto) Baso # (Auto) Seg Neutrophils % Seg Neuts % (Manual) Lymphocytes % (Manual) Nucleated RBC % Seg Neutrophils # Seg Neutrophils # Man Lymphocytes # (Manual) Monocytes # (Manual) Eosinophils # (Manual) PT INR APTT D-Dimer Heparin Anti-Xa Level ABG pH 7.479 H POC ABG pCO2 POC ABG pO2 76.7 L ABG pO2 ABG HCO3 ABG O2 Saturation ABG Base Excess ABG Hemoglobin 9.8 L ABG Oxyhemoglobin ABG Sodium 135.8 L ABG Potassium ABG Chloride ABG Glucose 238 H Oxyhemoglobin Carboxyhemoglobin Sodium Potassium Chloride Carbon Dioxide BUN Creatinine Glucose POC Glucose 156 H 178 H Lactic Acid Calcium Magnesium Ferritin Total Bilirubin Direct Bilirubin AST ALT Alkaline Phosphatase Lactate Dehydrogenase C-Reactive Protein Total Protein Albumin Triglycerides Lipase Arterial Blood Glucose 238 H Arterial Blood Ionized Calcium Urine WBC (Auto) Coronavirus (PCR) SARS-CoV-2 IgG Ab Crossmatch 06/11/20 06/11/20 06/11/20 05:21 06:52 11:50 WBC RBC Hgb Hct MCV MCH MCHC RDW Lymph % (Auto) [place] % (Auto) Lymph # (Auto) [place] # (Auto) Baso # (Auto) Seg Neutrophils % Seg Neuts % (Manual) Lymphocytes % (Manual) Nucleated RBC % Seg Neutrophils # Seg Neutrophils # Man Lymphocytes # (Manual) Monocytes # (Manual) Eosinophils # (Manual) PT INR APTT D-Dimer Heparin Anti-Xa Level ABG pH POC ABG pCO2 POC ABG pO2 ABG pO2 ABG HCO3 ABG O2 Saturation ABG Base Excess ABG Hemoglobin ABG Oxyhemoglobin ABG Sodium ABG Potassium ABG Chloride ABG Glucose Oxyhemoglobin Carboxyhemoglobin Sodium Potassium Chloride Carbon Dioxide BUN Creatinine Glucose POC Glucose 215 H 187 H Lactic Acid Calcium Magnesium Ferritin Total Bilirubin Direct Bilirubin AST ALT Alkaline Phosphatase Lactate Dehydrogenase C-Reactive Protein Total Protein Albumin Triglycerides 331 H Lipase Arterial Blood Glucose Arterial Blood Ionized Calcium Urine WBC (Auto) Coronavirus (PCR) SARS-CoV-2 IgG Ab Crossmatch 06/11/20 06/11/20 06/12/20 17:49 23:35 04:52 WBC RBC Hgb Hct MCV MCH MCHC RDW Lymph % (Auto) [place] % (Auto) Lymph # (Auto) [place] # (Auto) Baso # (Auto) Seg Neutrophils % Seg Neuts % (Manual) Lymphocytes % (Manual) Nucleated RBC % Seg Neutrophils # Seg Neutrophils # Man Lymphocytes # (Manual) Monocytes # (Manual) Eosinophils # (Manual) PT INR APTT D-Dimer Heparin Anti-Xa Level ABG pH 7.486 H POC ABG pCO2 POC ABG pO2 ABG pO2 ABG HCO3 ABG O2 Saturation ABG Base Excess ABG Hemoglobin 9.4 L ABG Oxyhemoglobin ABG Sodium ABG Potassium 3.2 L ABG Chloride ABG Glucose 209 H Oxyhemoglobin Carboxyhemoglobin Sodium Potassium Chloride Carbon Dioxide BUN Creatinine Glucose POC Glucose 211 H 200 H Lactic Acid Calcium Magnesium Ferritin Total Bilirubin Direct Bilirubin AST ALT Alkaline Phosphatase Lactate Dehydrogenase C-Reactive Protein Total Protein Albumin Triglycerides Lipase Arterial Blood Glucose 209 H Arterial Blood Ionized Calcium Urine WBC (Auto) Coronavirus (PCR) SARS-CoV-2 IgG Ab Crossmatch 06/12/20 06/12/20 06/12/20 05:13 11:47 18:33 WBC RBC Hgb Hct MCV MCH MCHC RDW Lymph % (Auto) [place] % (Auto) Lymph # (Auto) [place] # (Auto) Baso # (Auto) Seg Neutrophils % Seg Neuts % (Manual) Lymphocytes % (Manual) Nucleated RBC % Seg Neutrophils # Seg Neutrophils # Man Lymphocytes # (Manual) Monocytes # (Manual) Eosinophils # (Manual) PT INR APTT D-Dimer Heparin Anti-Xa Level ABG pH POC ABG pCO2 POC ABG pO2 ABG pO2 ABG HCO3 ABG O2 Saturation ABG Base Excess ABG Hemoglobin ABG Oxyhemoglobin ABG Sodium ABG Potassium ABG Chloride ABG Glucose Oxyhemoglobin Carboxyhemoglobin Sodium Potassium Chloride Carbon Dioxide BUN Creatinine Glucose POC Glucose 174 H 214 H 194 H Lactic Acid Calcium Magnesium Ferritin Total Bilirubin Direct Bilirubin AST ALT Alkaline Phosphatase Lactate Dehydrogenase C-Reactive Protein Total Protein Albumin Triglycerides Lipase Arterial Blood Glucose Arterial Blood Ionized Calcium Urine WBC (Auto) Coronavirus (PCR) SARS-CoV-2 IgG Ab Crossmatch 06/12/20 06/13/20 06/13/20 23:49 05:41 12:30 WBC RBC Hgb Hct MCV MCH MCHC RDW Lymph % (Auto) [place] % (Auto) Lymph # (Auto) [place] # (Auto) Baso # (Auto) Seg Neutrophils % Seg Neuts % (Manual) Lymphocytes % (Manual) Nucleated RBC % Seg Neutrophils # Seg Neutrophils # Man Lymphocytes # (Manual) Monocytes # (Manual) Eosinophils # (Manual) PT INR APTT D-Dimer Heparin Anti-Xa Level ABG pH POC ABG pCO2 POC ABG pO2 ABG pO2 ABG HCO3 ABG O2 Saturation ABG Base Excess ABG Hemoglobin ABG Oxyhemoglobin ABG Sodium ABG Potassium ABG Chloride ABG Glucose Oxyhemoglobin Carboxyhemoglobin Sodium Potassium Chloride Carbon Dioxide BUN Creatinine Glucose POC Glucose 160 H 150 H 181 H Lactic Acid Calcium Magnesium Ferritin Total Bilirubin Direct Bilirubin AST ALT Alkaline Phosphatase Lactate Dehydrogenase C-Reactive Protein Total Protein Albumin Triglycerides Lipase Arterial Blood Glucose Arterial Blood Ionized Calcium Urine WBC (Auto) Coronavirus (PCR) SARS-CoV-2 IgG Ab Crossmatch 06/13/20 06/13/20 06/13/20 14:14 17:48 23:27 WBC 12.8 H RBC 2.33 L Hgb 8.0 L Hct 23.3 L MCV 100 H MCH 34 H MCHC RDW 15.7 H Lymph % (Auto) [place] % (Auto) Lymph # (Auto) [place] # (Auto) Baso # (Auto) Seg Neutrophils % Seg Neuts % (Manual) 85.0 H Lymphocytes % (Manual) 10.0 L Nucleated RBC % Seg Neutrophils # Seg Neutrophils # Man 10.9 H Lymphocytes # (Manual) Monocytes # (Manual) Eosinophils # (Manual) PT INR APTT D-Dimer Heparin Anti-Xa Level ABG pH POC ABG pCO2 POC ABG pO2 ABG pO2 ABG HCO3 ABG O2 Saturation ABG Base Excess ABG Hemoglobin ABG Oxyhemoglobin ABG Sodium ABG Potassium ABG Chloride ABG Glucose Oxyhemoglobin Carboxyhemoglobin Sodium Potassium Chloride Carbon Dioxide BUN Creatinine Glucose POC Glucose 173 H 154 H Lactic Acid Calcium Magnesium Ferritin Total Bilirubin Direct Bilirubin AST ALT Alkaline Phosphatase Lactate Dehydrogenase C-Reactive Protein Total Protein Albumin Triglycerides Lipase Arterial Blood Glucose Arterial Blood Ionized Calcium Urine WBC (Auto) Coronavirus (PCR) SARS-CoV-2 IgG Ab Crossmatch 06/14/20 06/14/20 06/14/20 03:58 05:21 07:15 WBC 26.2 H RBC 2.97 L Hgb 9.7 L Hct 29.9 L D MCV 101 H MCH 33 H MCHC RDW 15.3 H Lymph % (Auto) [place] % (Auto) Lymph # (Auto) [place] # (Auto) Baso # (Auto) Seg Neutrophils % Seg Neuts % (Manual) 79.0 H Lymphocytes % (Manual) 5.0 L Nucleated RBC % 3.0 H Seg Neutrophils # Seg Neutrophils # Man 20.7 H Lymphocytes # (Manual) Monocytes # (Manual) 1.3 H Eosinophils # (Manual) PT INR APTT D-Dimer Heparin Anti-Xa Level ABG pH POC ABG pCO2 51.5 H POC ABG pO2 70.0 L ABG pO2 ABG HCO3 ABG O2 Saturation ABG Base Excess ABG Hemoglobin 10.1 L ABG Oxyhemoglobin ABG Sodium 131.5 L ABG Potassium 3.1 L ABG Chloride 93.0 L ABG Glucose 188 H Oxyhemoglobin Carboxyhemoglobin Sodium Potassium Chloride Carbon Dioxide BUN Creatinine Glucose POC Glucose 147 H Lactic Acid Calcium Magnesium Ferritin Total Bilirubin Direct Bilirubin AST ALT Alkaline Phosphatase Lactate Dehydrogenase C-Reactive Protein Total Protein Albumin Triglycerides Lipase Arterial Blood Glucose 188 H Arterial Blood Ionized Calcium Urine WBC (Auto) Coronavirus (PCR) SARS-CoV-2 IgG Ab Crossmatch 06/14/20 06/14/20 06/14/20 07:15 11:30 11:50 WBC RBC Hgb Hct MCV MCH MCHC RDW Lymph % (Auto) [place] % (Auto) Lymph # (Auto) [place] # (Auto) Baso # (Auto) Seg Neutrophils % Seg Neuts % (Manual) Lymphocytes % (Manual) Nucleated RBC % Seg Neutrophils # Seg Neutrophils # Man Lymphocytes # (Manual) Monocytes # (Manual) Eosinophils # (Manual) PT INR APTT D-Dimer Heparin Anti-Xa Level ABG pH POC ABG pCO2 POC ABG pO2 ABG pO2 ABG HCO3 ABG O2 Saturation ABG Base Excess ABG Hemoglobin ABG Oxyhemoglobin ABG Sodium ABG Potassium ABG Chloride ABG Glucose Oxyhemoglobin Carboxyhemoglobin Sodium 135 L Potassium 3.5 L Chloride 90.4 L Carbon Dioxide 38 H BUN Creatinine 0.5 L Glucose 190 H POC Glucose 176 H Lactic Acid Calcium Magnesium Ferritin 1496.0 H Total Bilirubin Direct Bilirubin AST ALT 81 H Alkaline Phosphatase Lactate Dehydrogenase C-Reactive Protein Total Protein Albumin 2.9 L Triglycerides Lipase Arterial Blood Glucose Arterial Blood Ionized Calcium Urine WBC (Auto) Coronavirus (PCR) SARS-CoV-2 IgG Ab Crossmatch 06/14/20 06/15/20 06/15/20 23:31 04:00 05:00 WBC RBC Hgb Hct MCV MCH MCHC RDW Lymph % (Auto) [place] % (Auto) Lymph # (Auto) [place] # (Auto) Baso # (Auto) Seg Neutrophils % Seg Neuts % (Manual) Lymphocytes % (Manual) Nucleated RBC % Seg Neutrophils # Seg Neutrophils # Man Lymphocytes # (Manual) Monocytes # (Manual) Eosinophils # (Manual) PT INR APTT D-Dimer Heparin Anti-Xa Level ABG pH POC ABG pCO2 POC ABG pO2 ABG pO2 ABG HCO3 ABG O2 Saturation ABG Base Excess ABG Hemoglobin ABG Oxyhemoglobin ABG Sodium ABG Potassium ABG Chloride ABG Glucose Oxyhemoglobin Carboxyhemoglobin Sodium 133 L Potassium Chloride 91.1 L Carbon Dioxide 34 H BUN Creatinine 0.4 L Glucose 159 H POC Glucose 200 H Lactic Acid Calcium Magnesium Ferritin Total Bilirubin 2.00 H Direct Bilirubin AST 47 H ALT 77 H Alkaline Phosphatase Lactate Dehydrogenase C-Reactive Protein Total Protein Albumin 2.6 L Triglycerides 152 H Lipase Arterial Blood Glucose Arterial Blood Ionized Calcium Urine WBC (Auto) Coronavirus (PCR) SARS-CoV-2 IgG Ab Crossmatch 06/15/20 06/15/20 06/15/20 05:35 06:27 11:38 WBC RBC Hgb Hct MCV MCH MCHC RDW Lymph % (Auto) [place] % (Auto) Lymph # (Auto) [place] # (Auto) Baso # (Auto) Seg Neutrophils % Seg Neuts % (Manual) Lymphocytes % (Manual) Nucleated RBC % Seg Neutrophils # Seg Neutrophils # Man Lymphocytes # (Manual) Monocytes # (Manual) Eosinophils # (Manual) PT INR APTT D-Dimer Heparin Anti-Xa Level ABG pH POC ABG pCO2 61.0 H POC ABG pO2 67.9 L ABG pO2 ABG HCO3 ABG O2 Saturation ABG Base Excess ABG Hemoglobin 10.4 L ABG Oxyhemoglobin ABG Sodium 132.7 L ABG Potassium 3.3 L ABG Chloride 92.0 L ABG Glucose 158 H Oxyhemoglobin Carboxyhemoglobin Sodium Potassium Chloride Carbon Dioxide BUN Creatinine Glucose POC Glucose 148 H 197 H Lactic Acid Calcium Magnesium Ferritin Total Bilirubin Direct Bilirubin AST ALT Alkaline Phosphatase Lactate Dehydrogenase C-Reactive Protein Total Protein Albumin Triglycerides Lipase Arterial Blood Glucose 158 H Arterial Blood Ionized Calcium Urine WBC (Auto) Coronavirus (PCR) SARS-CoV-2 IgG Ab Crossmatch 06/15/20 06/15/20 06/16/20 17:29 Unknown 00:01 WBC 20.7 H RBC 2.57 L Hgb 8.9 L Hct 25.8 L MCV 101 H MCH 35 H MCHC 35 H RDW 16.0 H Lymph % (Auto) [place] % (Auto) Lymph # (Auto) [place] # (Auto) Baso # (Auto) Seg Neutrophils % Seg Neuts % (Manual) 83.0 H Lymphocytes % (Manual) 8.0 L Nucleated RBC % Seg Neutrophils # Seg Neutrophils # Man 17.2 H Lymphocytes # (Manual) Monocytes # (Manual) 1.2 H Eosinophils # (Manual) PT INR APTT D-Dimer Heparin Anti-Xa Level ABG pH POC ABG pCO2 POC ABG pO2 ABG pO2 ABG HCO3 ABG O2 Saturation ABG Base Excess ABG Hemoglobin ABG Oxyhemoglobin ABG Sodium ABG Potassium ABG Chloride ABG Glucose Oxyhemoglobin Carboxyhemoglobin Sodium Potassium Chloride Carbon Dioxide BUN Creatinine Glucose POC Glucose 231 H 257 H Lactic Acid Calcium Magnesium Ferritin Total Bilirubin Direct Bilirubin AST ALT Alkaline Phosphatase Lactate Dehydrogenase C-Reactive Protein Total Protein Albumin Triglycerides Lipase Arterial Blood Glucose Arterial Blood Ionized Calcium Urine WBC (Auto) Coronavirus (PCR) SARS-CoV-2 IgG Ab Crossmatch 06/16/20 06/16/20 06/16/20 04:00 04:00 05:22 WBC 13.8 H RBC 2.03 L Hgb 7.6 L Hct 20.7 L MCV 102 H MCH 37 H MCHC 37 H RDW 16.2 H Lymph % (Auto) 4.4 L [place] % (Auto) Lymph # (Auto) 0.6 L [place] # (Auto) Baso # (Auto) Seg Neutrophils % Seg Neuts % (Manual) Lymphocytes % (Manual) Nucleated RBC % Seg Neutrophils # 12.7 H Seg Neutrophils # Man Lymphocytes # (Manual) Monocytes # (Manual) Eosinophils # (Manual) PT INR APTT D-Dimer Heparin Anti-Xa Level ABG pH POC ABG pCO2 POC ABG pO2 ABG pO2 ABG HCO3 ABG O2 Saturation ABG Base Excess ABG Hemoglobin ABG Oxyhemoglobin ABG Sodium ABG Potassium ABG Chloride ABG Glucose Oxyhemoglobin Carboxyhemoglobin Sodium 130 L Potassium Chloride 88.9 L Carbon Dioxide 36 H BUN Creatinine 0.3 L Glucose 276 H POC Glucose 250 H Lactic Acid Calcium Magnesium Ferritin Total Bilirubin Direct Bilirubin AST ALT Alkaline Phosphatase Lactate Dehydrogenase C-Reactive Protein Total Protein Albumin Triglycerides Lipase Arterial Blood Glucose Arterial Blood Ionized Calcium Urine WBC (Auto) Coronavirus (PCR) SARS-CoV-2 IgG Ab Crossmatch 06/16/20 06/16/20 06/17/20 12:44 18:18 00:39 WBC RBC Hgb Hct MCV MCH MCHC RDW Lymph % (Auto) [place] % (Auto) Lymph # (Auto) [place] # (Auto) Baso # (Auto) Seg Neutrophils % Seg Neuts % (Manual) Lymphocytes % (Manual) Nucleated RBC % Seg Neutrophils # Seg Neutrophils # Man Lymphocytes # (Manual) Monocytes # (Manual) Eosinophils # (Manual) PT INR APTT D-Dimer Heparin Anti-Xa Level ABG pH POC ABG pCO2 POC ABG pO2 ABG pO2 ABG HCO3 ABG O2 Saturation ABG Base Excess ABG Hemoglobin ABG Oxyhemoglobin ABG Sodium ABG Potassium ABG Chloride ABG Glucose Oxyhemoglobin Carboxyhemoglobin Sodium Potassium Chloride Carbon Dioxide BUN Creatinine Glucose POC Glucose 279 H 239 H 247 H Lactic Acid Calcium Magnesium Ferritin Total Bilirubin Direct Bilirubin AST ALT Alkaline Phosphatase Lactate Dehydrogenase C-Reactive Protein Total Protein Albumin Triglycerides Lipase Arterial Blood Glucose Arterial Blood Ionized Calcium Urine WBC (Auto) Coronavirus (PCR) SARS-CoV-2 IgG Ab Crossmatch 06/17/20 06/17/20 06/17/20 03:40 04:08 10:54 WBC RBC Hgb Hct MCV MCH MCHC RDW Lymph % (Auto) [place] % (Auto) Lymph # (Auto) [place] # (Auto) Baso # (Auto) Seg Neutrophils % Seg Neuts % (Manual) Lymphocytes % (Manual) Nucleated RBC % Seg Neutrophils # Seg Neutrophils # Man Lymphocytes # (Manual) Monocytes # (Manual) Eosinophils # (Manual) PT INR APTT D-Dimer Heparin Anti-Xa Level ABG pH POC ABG pCO2 65.7 H POC ABG pO2 ABG pO2 ABG HCO3 ABG O2 Saturation ABG Base Excess ABG Hemoglobin 11.9 L ABG Oxyhemoglobin ABG Sodium ABG Potassium ABG Chloride 93.0 L ABG Glucose 244 H Oxyhemoglobin Carboxyhemoglobin Sodium Potassium Chloride Carbon Dioxide BUN Creatinine Glucose POC Glucose 221 H 248 H Lactic Acid Calcium Magnesium Ferritin Total Bilirubin Direct Bilirubin AST ALT Alkaline Phosphatase Lactate Dehydrogenase C-Reactive Protein Total Protein Albumin Triglycerides Lipase Arterial Blood Glucose 244 H Arterial Blood Ionized Calcium Urine WBC (Auto) Coronavirus (PCR) SARS-CoV-2 IgG Ab Crossmatch 06/17/20 06/17/20 06/17/20 17:47 23:11 23:29 WBC RBC Hgb Hct MCV MCH MCHC RDW Lymph % (Auto) [place] % (Auto) Lymph # (Auto) [place] # (Auto) Baso # (Auto) Seg Neutrophils % Seg Neuts % (Manual) Lymphocytes % (Manual) Nucleated RBC % Seg Neutrophils # Seg Neutrophils # Man Lymphocytes # (Manual) Monocytes # (Manual) Eosinophils # (Manual) PT INR APTT D-Dimer Heparin Anti-Xa Level ABG pH POC ABG pCO2 85.2 H POC ABG pO2 48.4 L ABG pO2 ABG HCO3 ABG O2 Saturation ABG Base Excess ABG Hemoglobin 8.0 L ABG Oxyhemoglobin ABG Sodium ABG Potassium ABG Chloride 95.0 L ABG Glucose 292 H Oxyhemoglobin Carboxyhemoglobin Sodium Potassium Chloride Carbon Dioxide BUN Creatinine Glucose POC Glucose 245 H 252 H Lactic Acid Calcium Magnesium Ferritin Total Bilirubin Direct Bilirubin AST ALT Alkaline Phosphatase Lactate Dehydrogenase C-Reactive Protein Total Protein Albumin Triglycerides Lipase Arterial Blood Glucose 292 H Arterial Blood Ionized Calcium Urine WBC (Auto) Coronavirus (PCR) SARS-CoV-2 IgG Ab Crossmatch 06/18/20 06/18/20 06/18/20 03:14 05:34 11:47 WBC RBC Hgb Hct MCV MCH MCHC RDW Lymph % (Auto) [place] % (Auto) Lymph # (Auto) [place] # (Auto) Baso # (Auto) Seg Neutrophils % Seg Neuts % (Manual) Lymphocytes % (Manual) Nucleated RBC % Seg Neutrophils # Seg Neutrophils # Man Lymphocytes # (Manual) Monocytes # (Manual) Eosinophils # (Manual) PT INR APTT D-Dimer Heparin Anti-Xa Level ABG pH POC ABG pCO2 65.4 H POC ABG pO2 160.7 H ABG pO2 ABG HCO3 ABG O2 Saturation ABG Base Excess ABG Hemoglobin 7.8 L ABG Oxyhemoglobin ABG Sodium ABG Potassium ABG Chloride 95.0 L ABG Glucose 251 H Oxyhemoglobin Carboxyhemoglobin Sodium Potassium Chloride Carbon Dioxide BUN Creatinine Glucose POC Glucose 243 H 263 H Lactic Acid Calcium Magnesium Ferritin Total Bilirubin Direct Bilirubin AST ALT Alkaline Phosphatase Lactate Dehydrogenase C-Reactive Protein Total Protein Albumin Triglycerides Lipase Arterial Blood Glucose 251 H Arterial Blood Ionized Calcium Urine WBC (Auto) Coronavirus (PCR) SARS-CoV-2 IgG Ab Crossmatch 06/18/20 06/18/20 06/19/20 17:31 23:33 04:32 WBC RBC Hgb Hct MCV MCH MCHC RDW Lymph % (Auto) [place] % (Auto) Lymph # (Auto) [place] # (Auto) Baso # (Auto) Seg Neutrophils % Seg Neuts % (Manual) Lymphocytes % (Manual) Nucleated RBC % Seg Neutrophils # Seg Neutrophils # Man Lymphocytes # (Manual) Monocytes # (Manual) Eosinophils # (Manual) PT INR APTT D-Dimer Heparin Anti-Xa Level ABG pH POC ABG pCO2 83.1 H POC ABG pO2 65.8 L ABG pO2 ABG HCO3 ABG O2 Saturation ABG Base Excess ABG Hemoglobin 8.9 L ABG Oxyhemoglobin ABG Sodium ABG Potassium ABG Chloride 96.0 L ABG Glucose 297 H Oxyhemoglobin Carboxyhemoglobin Sodium Potassium Chloride Carbon Dioxide BUN Creatinine Glucose POC Glucose 286 H 238 H Lactic Acid Calcium Magnesium Ferritin Total Bilirubin Direct Bilirubin AST ALT Alkaline Phosphatase Lactate Dehydrogenase C-Reactive Protein Total Protein Albumin Triglycerides Lipase Arterial Blood Glucose 297 H Arterial Blood Ionized Calcium Urine WBC (Auto) Coronavirus (PCR) SARS-CoV-2 IgG Ab Crossmatch 06/19/20 06/19/20 06/19/20 05:55 11:20 17:12 WBC RBC Hgb Hct MCV MCH MCHC RDW Lymph % (Auto) [place] % (Auto) Lymph # (Auto) [place] # (Auto) Baso # (Auto) Seg Neutrophils % Seg Neuts % (Manual) Lymphocytes % (Manual) Nucleated RBC % Seg Neutrophils # Seg Neutrophils # Man Lymphocytes # (Manual) Monocytes # (Manual) Eosinophils # (Manual) PT INR APTT D-Dimer Heparin Anti-Xa Level ABG pH POC ABG pCO2 POC ABG pO2 ABG pO2 ABG HCO3 ABG O2 Saturation ABG Base Excess ABG Hemoglobin ABG Oxyhemoglobin ABG Sodium ABG Potassium ABG Chloride ABG Glucose Oxyhemoglobin Carboxyhemoglobin Sodium Potassium Chloride Carbon Dioxide BUN Creatinine Glucose POC Glucose 274 H 282 H 298 H Lactic Acid Calcium Magnesium Ferritin Total Bilirubin Direct Bilirubin AST ALT Alkaline Phosphatase Lactate Dehydrogenase C-Reactive Protein Total Protein Albumin Triglycerides Lipase Arterial Blood Glucose Arterial Blood Ionized Calcium Urine WBC (Auto) Coronavirus (PCR) SARS-CoV-2 IgG Ab Crossmatch 06/19/20 06/20/20 06/20/20 23:08 03:33 06:01 WBC RBC Hgb Hct MCV MCH MCHC RDW Lymph % (Auto) [place] % (Auto) Lymph # (Auto) [place] # (Auto) Baso # (Auto) Seg Neutrophils % Seg Neuts % (Manual) Lymphocytes % (Manual) Nucleated RBC % Seg Neutrophils # Seg Neutrophils # Man Lymphocytes # (Manual) Monocytes # (Manual) Eosinophils # (Manual) PT INR APTT D-Dimer Heparin Anti-Xa Level ABG pH POC ABG pCO2 POC ABG pO2 ABG pO2 69.9 L ABG HCO3 50.8 H ABG O2 Saturation ABG Base Excess 24.2 H ABG Hemoglobin 5.8 L ABG Oxyhemoglobin ABG Sodium ABG Potassium ABG Chloride ABG Glucose Oxyhemoglobin Carboxyhemoglobin Sodium Potassium Chloride Carbon Dioxide BUN Creatinine Glucose POC Glucose 293 H 182 H Lactic Acid Calcium Magnesium Ferritin Total Bilirubin Direct Bilirubin AST ALT Alkaline Phosphatase Lactate Dehydrogenase C-Reactive Protein Total Protein Albumin Triglycerides Lipase Arterial Blood Glucose Arterial Blood Ionized Calcium Urine WBC (Auto) Coronavirus (PCR) SARS-CoV-2 IgG Ab Crossmatch 06/20/20 06/20/20 06/20/20 11:47 17:46 23:37 WBC RBC Hgb Hct MCV MCH MCHC RDW Lymph % (Auto) [place] % (Auto) Lymph # (Auto) [place] # (Auto) Baso # (Auto) Seg Neutrophils % Seg Neuts % (Manual) Lymphocytes % (Manual) Nucleated RBC % Seg Neutrophils # Seg Neutrophils # Man Lymphocytes # (Manual) Monocytes # (Manual) Eosinophils # (Manual) PT INR APTT D-Dimer Heparin Anti-Xa Level ABG pH POC ABG pCO2 POC ABG pO2 ABG pO2 ABG HCO3 ABG O2 Saturation ABG Base Excess ABG Hemoglobin ABG Oxyhemoglobin ABG Sodium ABG Potassium ABG Chloride ABG Glucose Oxyhemoglobin Carboxyhemoglobin Sodium Potassium Chloride Carbon Dioxide BUN Creatinine Glucose POC Glucose 170 H 215 H 256 H Lactic Acid Calcium Magnesium Ferritin Total Bilirubin Direct Bilirubin AST ALT Alkaline Phosphatase Lactate Dehydrogenase C-Reactive Protein Total Protein Albumin Triglycerides Lipase Arterial Blood Glucose Arterial Blood Ionized Calcium Urine WBC (Auto) Coronavirus (PCR) SARS-CoV-2 IgG Ab Crossmatch 06/21/20 06/21/20 06/21/20 04:00 05:14 05:51 WBC RBC Hgb Hct MCV MCH MCHC RDW Lymph % (Auto) [place] % (Auto) Lymph # (Auto) [place] # (Auto) Baso # (Auto) Seg Neutrophils % Seg Neuts % (Manual) Lymphocytes % (Manual) Nucleated RBC % Seg Neutrophils # Seg Neutrophils # Man Lymphocytes # (Manual) Monocytes # (Manual) Eosinophils # (Manual) PT INR APTT D-Dimer Heparin Anti-Xa Level ABG pH 7.474 H POC ABG pCO2 POC ABG pO2 ABG pO2 ABG HCO3 52.1 H ABG O2 Saturation ABG Base Excess 23.3 H ABG Hemoglobin 5.3 L ABG Oxyhemoglobin ABG Sodium ABG Potassium ABG Chloride ABG Glucose Oxyhemoglobin 93.8 L Carboxyhemoglobin Sodium Potassium Chloride Carbon Dioxide BUN Creatinine Glucose POC Glucose 122 H 129 H Lactic Acid Calcium Magnesium Ferritin Total Bilirubin Direct Bilirubin AST ALT Alkaline Phosphatase Lactate Dehydrogenase C-Reactive Protein Total Protein Albumin Triglycerides Lipase Arterial Blood Glucose Arterial Blood Ionized Calcium Urine WBC (Auto) Coronavirus (PCR) SARS-CoV-2 IgG Ab Crossmatch 06/21/20 06/21/20 06/21/20 11:00 11:00 11:42 WBC 14.2 H RBC 1.85 L Hgb 6.2 L Hct 19.5 L* MCV 105 H MCH 34 H MCHC RDW 18.0 H Lymph % (Auto) [place] % (Auto) Lymph # (Auto) [place] # (Auto) Baso # (Auto) Seg Neutrophils % Seg Neuts % (Manual) Lymphocytes % (Manual) Nucleated RBC % Seg Neutrophils # Seg Neutrophils # Man Lymphocytes # (Manual) Monocytes # (Manual) Eosinophils # (Manual) PT INR APTT D-Dimer Heparin Anti-Xa Level ABG pH POC ABG pCO2 POC ABG pO2 ABG pO2 ABG HCO3 ABG O2 Saturation ABG Base Excess ABG Hemoglobin ABG Oxyhemoglobin ABG Sodium ABG Potassium ABG Chloride ABG Glucose Oxyhemoglobin Carboxyhemoglobin Sodium 147 H Potassium Chloride Carbon Dioxide 51 H* BUN 31 H Creatinine 0.5 L Glucose 224 H POC Glucose 217 H Lactic Acid Calcium Magnesium Ferritin Total Bilirubin Direct Bilirubin AST ALT Alkaline Phosphatase Lactate Dehydrogenase C-Reactive Protein Total Protein Albumin Triglycerides Lipase Arterial Blood Glucose Arterial Blood Ionized Calcium Urine WBC (Auto) Coronavirus (PCR) SARS-CoV-2 IgG Ab Crossmatch 06/21/20 06/21/20 06/21/20 14:18 14:30 18:36 WBC RBC Hgb Hct MCV MCH MCHC RDW Lymph % (Auto) [place] % (Auto) Lymph # (Auto) [place] # (Auto) Baso # (Auto) Seg Neutrophils % Seg Neuts % (Manual) Lymphocytes % (Manual) Nucleated RBC % Seg Neutrophils # Seg Neutrophils # Man Lymphocytes # (Manual) Monocytes # (Manual) Eosinophils # (Manual) PT 15.1 H INR 1.19 H APTT D-Dimer Heparin Anti-Xa Level ABG pH POC ABG pCO2 POC ABG pO2 ABG pO2 ABG HCO3 ABG O2 Saturation ABG Base Excess ABG Hemoglobin ABG Oxyhemoglobin ABG Sodium ABG Potassium ABG Chloride ABG Glucose Oxyhemoglobin Carboxyhemoglobin Sodium Potassium Chloride Carbon Dioxide BUN Creatinine Glucose POC Glucose 185 H Lactic Acid Calcium Magnesium Ferritin Total Bilirubin Direct Bilirubin AST ALT Alkaline Phosphatase Lactate Dehydrogenase C-Reactive Protein Total Protein Albumin Triglycerides Lipase Arterial Blood Glucose Arterial Blood Ionized Calcium Urine WBC (Auto) Coronavirus (PCR) SARS-CoV-2 IgG Ab Crossmatch See Detail 06/21/20 06/22/20 06/22/20 21:14 03:50 04:00 WBC RBC Hgb Hct MCV MCH MCHC RDW Lymph % (Auto) [place] % (Auto) Lymph # (Auto) [place] # (Auto) Baso # (Auto) Seg Neutrophils % Seg Neuts % (Manual) Lymphocytes % (Manual) Nucleated RBC % Seg Neutrophils # Seg Neutrophils # Man Lymphocytes # (Manual) Monocytes # (Manual) Eosinophils # (Manual) PT INR APTT D-Dimer Heparin Anti-Xa Level ABG pH 7.451 H POC ABG pCO2 POC ABG pO2 ABG pO2 ABG HCO3 47.5 H ABG O2 Saturation ABG Base Excess 22.0 H ABG Hemoglobin < 5.1 L ABG Oxyhemoglobin ABG Sodium ABG Potassium ABG Chloride ABG Glucose Oxyhemoglobin 94.1 L Carboxyhemoglobin Sodium 149 H Potassium 3.5 L Chloride Carbon Dioxide 42 H* D BUN 34 H Creatinine 0.4 L Glucose 219 H POC Glucose 250 H Lactic Acid Calcium Magnesium Ferritin Total Bilirubin Direct Bilirubin AST ALT Alkaline Phosphatase Lactate Dehydrogenase C-Reactive Protein Total Protein Albumin Triglycerides Lipase Arterial Blood Glucose Arterial Blood Ionized Calcium Urine WBC (Auto) Coronavirus (PCR) SARS-CoV-2 IgG Ab Crossmatch 06/22/20 06/22/20 06/22/20 12:16 14:29 17:56 WBC RBC Hgb Hct MCV MCH MCHC RDW Lymph % (Auto) [place] % (Auto) Lymph # (Auto) [place] # (Auto) Baso # (Auto) Seg Neutrophils % Seg Neuts % (Manual) Lymphocytes % (Manual) Nucleated RBC % Seg Neutrophils # Seg Neutrophils # Man Lymphocytes # (Manual) Monocytes # (Manual) Eosinophils # (Manual) PT 11.8 L INR APTT 23.5 L D-Dimer Heparin Anti-Xa Level ABG pH POC ABG pCO2 POC ABG pO2 ABG pO2 ABG HCO3 ABG O2 Saturation ABG Base Excess ABG Hemoglobin ABG Oxyhemoglobin ABG Sodium ABG Potassium ABG Chloride ABG Glucose Oxyhemoglobin Carboxyhemoglobin Sodium Potassium Chloride Carbon Dioxide BUN Creatinine Glucose POC Glucose 215 H 215 H Lactic Acid Calcium Magnesium Ferritin Total Bilirubin Direct Bilirubin AST ALT Alkaline Phosphatase Lactate Dehydrogenase C-Reactive Protein Total Protein Albumin Triglycerides Lipase Arterial Blood Glucose Arterial Blood Ionized Calcium Urine WBC (Auto) Coronavirus (PCR) SARS-CoV-2 IgG Ab Crossmatch 06/22/20 06/22/20 06/22/20 23:36 23:45 Unknown WBC 14.1 H RBC 2.70 L Hgb 8.9 L 8.9 L Hct 26.9 L 27.2 L D MCV 101 H MCH 33 H MCHC RDW 17.7 H Lymph % (Auto) [place] % (Auto) Lymph # (Auto) [place] # (Auto) Baso # (Auto) Seg Neutrophils % Seg Neuts % (Manual) 92.0 H Lymphocytes % (Manual) 5.0 L Nucleated RBC % Seg Neutrophils # Seg Neutrophils # Man 13.0 H Lymphocytes # (Manual) 0.7 L Monocytes # (Manual) Eosinophils # (Manual) PT INR APTT D-Dimer Heparin Anti-Xa Level ABG pH POC ABG pCO2 POC ABG pO2 ABG pO2 ABG HCO3 ABG O2 Saturation ABG Base Excess ABG Hemoglobin ABG Oxyhemoglobin ABG Sodium ABG Potassium ABG Chloride ABG Glucose Oxyhemoglobin Carboxyhemoglobin Sodium Potassium Chloride Carbon Dioxide BUN Creatinine Glucose POC Glucose 208 H Lactic Acid Calcium Magnesium Ferritin Total Bilirubin Direct Bilirubin AST ALT Alkaline Phosphatase Lactate Dehydrogenase C-Reactive Protein Total Protein Albumin Triglycerides Lipase Arterial Blood Glucose Arterial Blood Ionized Calcium Urine WBC (Auto) Coronavirus (PCR) SARS-CoV-2 IgG Ab Crossmatch 06/23/20 06/23/20 06/23/20 05:17 05:19 06:50 WBC RBC Hgb Hct MCV MCH MCHC RDW Lymph % (Auto) [place] % (Auto) Lymph # (Auto) [place] # (Auto) Baso # (Auto) Seg Neutrophils % Seg Neuts % (Manual) Lymphocytes % (Manual) Nucleated RBC % Seg Neutrophils # Seg Neutrophils # Man Lymphocytes # (Manual) Monocytes # (Manual) Eosinophils # (Manual) PT INR APTT D-Dimer Heparin Anti-Xa Level ABG pH POC ABG pCO2 69.7 H POC ABG pO2 63.3 L ABG pO2 ABG HCO3 ABG O2 Saturation ABG Base Excess ABG Hemoglobin 10.1 L ABG Oxyhemoglobin ABG Sodium ABG Potassium 3.3 L ABG Chloride ABG Glucose 226 H Oxyhemoglobin Carboxyhemoglobin Sodium Potassium 3.0 L Chloride Carbon Dioxide 41 H* BUN 26 H Creatinine 0.4 L Glucose 209 H POC Glucose 200 H Lactic Acid Calcium Magnesium Ferritin Total Bilirubin Direct Bilirubin AST ALT Alkaline Phosphatase Lactate Dehydrogenase C-Reactive Protein Total Protein Albumin 2.9 L Triglycerides Lipase Arterial Blood Glucose 226 H Arterial Blood Ionized Calcium Urine WBC (Auto) Coronavirus (PCR) SARS-CoV-2 IgG Ab Crossmatch 06/23/20 06/23/20 06/23/20 09:41 12:04 18:16 WBC RBC Hgb 9.1 L Hct 28.0 L MCV MCH MCHC RDW Lymph % (Auto) [place] % (Auto) Lymph # (Auto) [place] # (Auto) Baso # (Auto) Seg Neutrophils % Seg Neuts % (Manual) Lymphocytes % (Manual) Nucleated RBC % Seg Neutrophils # Seg Neutrophils # Man Lymphocytes # (Manual) Monocytes # (Manual) Eosinophils # (Manual) PT INR APTT D-Dimer Heparin Anti-Xa Level ABG pH POC ABG pCO2 POC ABG pO2 ABG pO2 ABG HCO3 ABG O2 Saturation ABG Base Excess ABG Hemoglobin ABG Oxyhemoglobin ABG Sodium ABG Potassium ABG Chloride ABG Glucose Oxyhemoglobin Carboxyhemoglobin Sodium Potassium Chloride Carbon Dioxide BUN Creatinine Glucose POC Glucose 146 H 162 H Lactic Acid Calcium Magnesium Ferritin Total Bilirubin Direct Bilirubin AST ALT Alkaline Phosphatase Lactate Dehydrogenase C-Reactive Protein Total Protein Albumin Triglycerides Lipase Arterial Blood Glucose Arterial Blood Ionized Calcium Urine WBC (Auto) Coronavirus (PCR) SARS-CoV-2 IgG Ab Crossmatch 06/23/20 06/23/20 06/24/20 23:24 23:41 02:39 WBC RBC Hgb 8.2 L 8.8 L Hct 24.9 L 26.8 L MCV MCH MCHC RDW Lymph % (Auto) [place] % (Auto) Lymph # (Auto) [place] # (Auto) Baso # (Auto) Seg Neutrophils % Seg Neuts % (Manual) Lymphocytes % (Manual) Nucleated RBC % Seg Neutrophils # Seg Neutrophils # Man Lymphocytes # (Manual) Monocytes # (Manual) Eosinophils # (Manual) PT INR APTT D-Dimer Heparin Anti-Xa Level ABG pH POC ABG pCO2 POC ABG pO2 ABG pO2 ABG HCO3 ABG O2 Saturation ABG Base Excess ABG Hemoglobin ABG Oxyhemoglobin ABG Sodium ABG Potassium ABG Chloride ABG Glucose Oxyhemoglobin Carboxyhemoglobin Sodium Potassium Chloride Carbon Dioxide BUN Creatinine Glucose POC Glucose 248 H Lactic Acid Calcium Magnesium Ferritin Total Bilirubin Direct Bilirubin AST ALT Alkaline Phosphatase Lactate Dehydrogenase C-Reactive Protein Total Protein Albumin Triglycerides Lipase Arterial Blood Glucose Arterial Blood Ionized Calcium Urine WBC (Auto) Coronavirus (PCR) SARS-CoV-2 IgG Ab Crossmatch 06/24/20 06/24/20 06/24/20 02:39 02:45 05:31 WBC RBC Hgb Hct MCV MCH MCHC RDW Lymph % (Auto) [place] % (Auto) Lymph # (Auto) [place] # (Auto) Baso # (Auto) Seg Neutrophils % Seg Neuts % (Manual) Lymphocytes % (Manual) Nucleated RBC % Seg Neutrophils # Seg Neutrophils # Man Lymphocytes # (Manual) Monocytes # (Manual) Eosinophils # (Manual) PT INR APTT D-Dimer Heparin Anti-Xa Level ABG pH POC ABG pCO2 66.9 H POC ABG pO2 109.7 H ABG pO2 ABG HCO3 ABG O2 Saturation ABG Base Excess ABG Hemoglobin 9.7 L ABG Oxyhemoglobin ABG Sodium 135.0 L ABG Potassium ABG Chloride 97.0 L ABG Glucose 277 H Oxyhemoglobin Carboxyhemoglobin Sodium 136 L Potassium Chloride 95.0 L Carbon Dioxide 34 H D BUN 24 H Creatinine 0.3 L Glucose 260 H POC Glucose 164 H Lactic Acid Calcium Magnesium Ferritin Total Bilirubin Direct Bilirubin AST ALT Alkaline Phosphatase Lactate Dehydrogenase C-Reactive Protein Total Protein 5.2 L Albumin 2.6 L Triglycerides Lipase Arterial Blood Glucose 277 H Arterial Blood Ionized Calcium Urine WBC (Auto) Coronavirus (PCR) SARS-CoV-2 IgG Ab Crossmatch 06/24/20 06/24/20 06/24/20 10:00 11:49 17:39 WBC RBC Hgb 8.9 L Hct 26.5 L MCV MCH MCHC RDW Lymph % (Auto) [place] % (Auto) Lymph # (Auto) [place] # (Auto) Baso # (Auto) Seg Neutrophils % Seg Neuts % (Manual) Lymphocytes % (Manual) Nucleated RBC % Seg Neutrophils # Seg Neutrophils # Man Lymphocytes # (Manual) Monocytes # (Manual) Eosinophils # (Manual) PT INR APTT D-Dimer Heparin Anti-Xa Level ABG pH POC ABG pCO2 POC ABG pO2 ABG pO2 ABG HCO3 ABG O2 Saturation ABG Base Excess ABG Hemoglobin ABG Oxyhemoglobin ABG Sodium ABG Potassium ABG Chloride ABG Glucose Oxyhemoglobin Carboxyhemoglobin Sodium Potassium Chloride Carbon Dioxide BUN Creatinine Glucose POC Glucose 198 H 223 H Lactic Acid Calcium Magnesium Ferritin Total Bilirubin Direct Bilirubin AST ALT Alkaline Phosphatase Lactate Dehydrogenase C-Reactive Protein Total Protein Albumin Triglycerides Lipase Arterial Blood Glucose Arterial Blood Ionized Calcium Urine WBC (Auto) Coronavirus (PCR) SARS-CoV-2 IgG Ab Crossmatch 06/24/20 06/25/20 06/25/20 23:56 02:16 04:08 WBC RBC Hgb Hct MCV MCH MCHC RDW Lymph % (Auto) [place] % (Auto) Lymph # (Auto) [place] # (Auto) Baso # (Auto) Seg Neutrophils % Seg Neuts % (Manual) Lymphocytes % (Manual) Nucleated RBC % Seg Neutrophils # Seg Neutrophils # Man Lymphocytes # (Manual) Monocytes # (Manual) Eosinophils # (Manual) PT INR APTT D-Dimer Heparin Anti-Xa Level ABG pH 7.454 H POC ABG pCO2 56.9 H POC ABG pO2 61.0 L ABG pO2 ABG HCO3 ABG O2 Saturation ABG Base Excess ABG Hemoglobin ABG Oxyhemoglobin ABG Sodium 134.3 L ABG Potassium ABG Chloride 92.0 L ABG Glucose 246 H Oxyhemoglobin Carboxyhemoglobin Sodium 134 L Potassium Chloride 89.7 L Carbon Dioxide 36 H BUN Creatinine 0.3 L Glucose 254 H POC Glucose 225 H Lactic Acid Calcium Magnesium Ferritin Total Bilirubin Direct Bilirubin AST ALT Alkaline Phosphatase Lactate Dehydrogenase C-Reactive Protein Total Protein Albumin 2.9 L Triglycerides Lipase Arterial Blood Glucose 246 H Arterial Blood Ionized Calcium Urine WBC (Auto) Coronavirus (PCR) SARS-CoV-2 IgG Ab Crossmatch 06/25/20 06/25/20 06/25/20 05:44 11:35 17:33 WBC RBC Hgb Hct MCV MCH MCHC RDW Lymph % (Auto) [place] % (Auto) Lymph # (Auto) [place] # (Auto) Baso # (Auto) Seg Neutrophils % Seg Neuts % (Manual) Lymphocytes % (Manual) Nucleated RBC % Seg Neutrophils # Seg Neutrophils # Man Lymphocytes # (Manual) Monocytes # (Manual) Eosinophils # (Manual) PT INR APTT D-Dimer Heparin Anti-Xa Level ABG pH POC ABG pCO2 POC ABG pO2 ABG pO2 ABG HCO3 ABG O2 Saturation ABG Base Excess ABG Hemoglobin ABG Oxyhemoglobin ABG Sodium ABG Potassium ABG Chloride ABG Glucose Oxyhemoglobin Carboxyhemoglobin Sodium Potassium Chloride Carbon Dioxide BUN Creatinine Glucose POC Glucose 170 H 175 H 229 H Lactic Acid Calcium Magnesium Ferritin Total Bilirubin Direct Bilirubin AST ALT Alkaline Phosphatase Lactate Dehydrogenase C-Reactive Protein Total Protein Albumin Triglycerides Lipase Arterial Blood Glucose Arterial Blood Ionized Calcium Urine WBC (Auto) Coronavirus (PCR) SARS-CoV-2 IgG Ab Crossmatch 06/25/20 06/26/20 06/26/20 23:55 02:17 02:17 WBC RBC Hgb 10.0 L Hct 30.4 L MCV MCH MCHC RDW Lymph % (Auto) [place] % (Auto) Lymph # (Auto) [place] # (Auto) Baso # (Auto) Seg Neutrophils % Seg Neuts % (Manual) Lymphocytes % (Manual) Nucleated RBC % Seg Neutrophils # Seg Neutrophils # Man Lymphocytes # (Manual) Monocytes # (Manual) Eosinophils # (Manual) PT INR APTT D-Dimer Heparin Anti-Xa Level ABG pH POC ABG pCO2 POC ABG pO2 ABG pO2 ABG HCO3 ABG O2 Saturation ABG Base Excess ABG Hemoglobin ABG Oxyhemoglobin ABG Sodium ABG Potassium ABG Chloride ABG Glucose Oxyhemoglobin Carboxyhemoglobin Sodium 136 L Potassium Chloride 90.1 L Carbon Dioxide 39 H BUN Creatinine 0.2 L Glucose 232 H POC Glucose 192 H Lactic Acid Calcium Magnesium Ferritin Total Bilirubin Direct Bilirubin AST ALT Alkaline Phosphatase Lactate Dehydrogenase C-Reactive Protein Total Protein 6.1 L Albumin 2.9 L Triglycerides Lipase Arterial Blood Glucose Arterial Blood Ionized Calcium Urine WBC (Auto) Coronavirus (PCR) SARS-CoV-2 IgG Ab Crossmatch 06/26/20 06/26/20 06/26/20 04:15 04:49 05:28 WBC RBC Hgb Hct MCV MCH MCHC RDW Lymph % (Auto) [place] % (Auto) Lymph # (Auto) [place] # (Auto) Baso # (Auto) Seg Neutrophils % Seg Neuts % (Manual) Lymphocytes % (Manual) Nucleated RBC % Seg Neutrophils # Seg Neutrophils # Man Lymphocytes # (Manual) Monocytes # (Manual) Eosinophils # (Manual) PT INR APTT D-Dimer Heparin Anti-Xa Level ABG pH 7.453 H POC ABG pCO2 59.6 H POC ABG pO2 ABG pO2 ABG HCO3 ABG O2 Saturation ABG Base Excess ABG Hemoglobin 10.0 L ABG Oxyhemoglobin ABG Sodium 134.2 L ABG Potassium 3.3 L ABG Chloride 92.0 L ABG Glucose 305 H Oxyhemoglobin Carboxyhemoglobin Sodium Potassium Chloride Carbon Dioxide BUN Creatinine Glucose POC Glucose 234 H Lactic Acid Calcium Magnesium Ferritin Total Bilirubin Direct Bilirubin AST ALT Alkaline Phosphatase Lactate Dehydrogenase C-Reactive Protein Total Protein Albumin Triglycerides 203 H Lipase Arterial Blood Glucose 305 H Arterial Blood Ionized Calcium Urine WBC (Auto) Coronavirus (PCR) SARS-CoV-2 IgG Ab Crossmatch 06/26/20 06/26/20 06/26/20 11:58 17:58 21:32 WBC RBC Hgb Hct MCV MCH MCHC RDW Lymph % (Auto) [place] % (Auto) Lymph # (Auto) [place] # (Auto) Baso # (Auto) Seg Neutrophils % Seg Neuts % (Manual) Lymphocytes % (Manual) Nucleated RBC % Seg Neutrophils # Seg Neutrophils # Man Lymphocytes # (Manual) Monocytes # (Manual) Eosinophils # (Manual) PT INR APTT D-Dimer Heparin Anti-Xa Level ABG pH POC ABG pCO2 POC ABG pO2 ABG pO2 ABG HCO3 ABG O2 Saturation ABG Base Excess ABG Hemoglobin ABG Oxyhemoglobin ABG Sodium ABG Potassium ABG Chloride ABG Glucose Oxyhemoglobin Carboxyhemoglobin Sodium Potassium Chloride Carbon Dioxide BUN Creatinine Glucose POC Glucose 198 H 193 H 191 H Lactic Acid Calcium Magnesium Ferritin Total Bilirubin Direct Bilirubin AST ALT Alkaline Phosphatase Lactate Dehydrogenase C-Reactive Protein Total Protein Albumin Triglycerides Lipase Arterial Blood Glucose Arterial Blood Ionized Calcium Urine WBC (Auto) Coronavirus (PCR) SARS-CoV-2 IgG Ab Crossmatch 06/26/20 06/27/20 06/27/20 23:40 04:35 05:32 WBC RBC Hgb Hct MCV MCH MCHC RDW Lymph % (Auto) [place] % (Auto) Lymph # (Auto) [place] # (Auto) Baso # (Auto) Seg Neutrophils % Seg Neuts % (Manual) Lymphocytes % (Manual) Nucleated RBC % Seg Neutrophils # Seg Neutrophils # Man Lymphocytes # (Manual) Monocytes # (Manual) Eosinophils # (Manual) PT INR APTT D-Dimer Heparin Anti-Xa Level ABG pH 7.464 H POC ABG pCO2 60.8 H POC ABG pO2 ABG pO2 ABG HCO3 ABG O2 Saturation ABG Base Excess ABG Hemoglobin 10.1 L ABG Oxyhemoglobin ABG Sodium ABG Potassium 2.9 L ABG Chloride 92.0 L ABG Glucose 298 H Oxyhemoglobin Carboxyhemoglobin Sodium Potassium Chloride Carbon Dioxide BUN Creatinine Glucose POC Glucose 241 H 211 H Lactic Acid Calcium Magnesium Ferritin Total Bilirubin Direct Bilirubin AST ALT Alkaline Phosphatase Lactate Dehydrogenase C-Reactive Protein Total Protein Albumin Triglycerides Lipase Arterial Blood Glucose 298 H Arterial Blood Ionized Calcium Urine WBC (Auto) Coronavirus (PCR) SARS-CoV-2 IgG Ab Crossmatch 06/27/20 06/27/20 06/27/20 12:37 18:08 20:52 WBC RBC Hgb Hct MCV MCH MCHC RDW Lymph % (Auto) [place] % (Auto) Lymph # (Auto) [place] # (Auto) Baso # (Auto) Seg Neutrophils % Seg Neuts % (Manual) Lymphocytes % (Manual) Nucleated RBC % Seg Neutrophils # Seg Neutrophils # Man Lymphocytes # (Manual) Monocytes # (Manual) Eosinophils # (Manual) PT INR APTT D-Dimer Heparin Anti-Xa Level ABG pH POC ABG pCO2 POC ABG pO2 ABG pO2 ABG HCO3 ABG O2 Saturation ABG Base Excess ABG Hemoglobin ABG Oxyhemoglobin ABG Sodium ABG Potassium ABG Chloride ABG Glucose Oxyhemoglobin Carboxyhemoglobin Sodium Potassium Chloride Carbon Dioxide BUN Creatinine Glucose POC Glucose 182 H 197 H 195 H Lactic Acid Calcium Magnesium Ferritin Total Bilirubin Direct Bilirubin AST ALT Alkaline Phosphatase Lactate Dehydrogenase C-Reactive Protein Total Protein Albumin Triglycerides Lipase Arterial Blood Glucose Arterial Blood Ionized Calcium Urine WBC (Auto) Coronavirus (PCR) SARS-CoV-2 IgG Ab Crossmatch 06/27/20 06/28/20 06/28/20 Unknown 04:17 04:50 WBC RBC Hgb Hct MCV MCH MCHC RDW Lymph % (Auto) [place] % (Auto) Lymph # (Auto) [place] # (Auto) Baso # (Auto) Seg Neutrophils % Seg Neuts % (Manual) Lymphocytes % (Manual) Nucleated RBC % Seg Neutrophils # Seg Neutrophils # Man Lymphocytes # (Manual) Monocytes # (Manual) Eosinophils # (Manual) PT INR APTT D-Dimer Heparin Anti-Xa Level ABG pH POC ABG pCO2 58.6 H POC ABG pO2 60.1 L ABG pO2 ABG HCO3 ABG O2 Saturation ABG Base Excess ABG Hemoglobin 10.0 L ABG Oxyhemoglobin ABG Sodium 125.3 L ABG Potassium ABG Chloride 93.0 L ABG Glucose 308 H Oxyhemoglobin Carboxyhemoglobin Sodium Potassium 2.9 L* Chloride 93.4 L Carbon Dioxide 42 H* BUN Creatinine 0.3 L Glucose 211 H POC Glucose 252 H Lactic Acid Calcium 8.1 L Magnesium Ferritin Total Bilirubin Direct Bilirubin AST ALT Alkaline Phosphatase Lactate Dehydrogenase C-Reactive Protein Total Protein 5.1 L Albumin 2.4 L Triglycerides Lipase Arterial Blood Glucose 308 H Arterial Blood Ionized Calcium Urine WBC (Auto) Coronavirus (PCR) SARS-CoV-2 IgG Ab Crossmatch 06/28/20 06/28/20 06/28/20 06:35 06:35 11:36 WBC 18.9 H RBC 2.85 L Hgb 9.5 L Hct 28.4 L MCV 100 H MCH 33 H MCHC RDW 17.3 H Lymph % (Auto) [place] % (Auto) Lymph # (Auto) [place] # (Auto) Baso # (Auto) Seg Neutrophils % 88.6 H Seg Neuts % (Manual) 95.0 H Lymphocytes % (Manual) 1.0 L Nucleated RBC % Seg Neutrophils # 15.9 H Seg Neutrophils # Man 18.0 H Lymphocytes # (Manual) 0.2 L Monocytes # (Manual) Eosinophils # (Manual) PT INR APTT D-Dimer Heparin Anti-Xa Level ABG pH POC ABG pCO2 POC ABG pO2 ABG pO2 ABG HCO3 ABG O2 Saturation ABG Base Excess ABG Hemoglobin ABG Oxyhemoglobin ABG Sodium ABG Potassium ABG Chloride ABG Glucose Oxyhemoglobin Carboxyhemoglobin Sodium Potassium Chloride 94.2 L Carbon Dioxide 38 H BUN Creatinine 0.3 L Glucose 228 H POC Glucose 243 H Lactic Acid Calcium Magnesium Ferritin Total Bilirubin Direct Bilirubin AST ALT Alkaline Phosphatase Lactate Dehydrogenase C-Reactive Protein Total Protein 6.1 L Albumin 2.7 L Triglycerides Lipase Arterial Blood Glucose Arterial Blood Ionized Calcium Urine WBC (Auto) Coronavirus (PCR) SARS-CoV-2 IgG Ab Crossmatch 06/28/20 06/28/20 06/29/20 16:53 21:10 00:06 WBC RBC Hgb Hct MCV MCH MCHC RDW Lymph % (Auto) [place] % (Auto) Lymph # (Auto) [place] # (Auto) Baso # (Auto) Seg Neutrophils % Seg Neuts % (Manual) Lymphocytes % (Manual) Nucleated RBC % Seg Neutrophils # Seg Neutrophils # Man Lymphocytes # (Manual) Monocytes # (Manual) Eosinophils # (Manual) PT INR APTT D-Dimer Heparin Anti-Xa Level ABG pH POC ABG pCO2 POC ABG pO2 ABG pO2 ABG HCO3 ABG O2 Saturation ABG Base Excess ABG Hemoglobin ABG Oxyhemoglobin ABG Sodium ABG Potassium ABG Chloride ABG Glucose Oxyhemoglobin Carboxyhemoglobin Sodium Potassium Chloride Carbon Dioxide BUN Creatinine Glucose POC Glucose 211 H 195 H 200 H Lactic Acid Calcium Magnesium Ferritin Total Bilirubin Direct Bilirubin AST ALT Alkaline Phosphatase Lactate Dehydrogenase C-Reactive Protein Total Protein Albumin Triglycerides Lipase Arterial Blood Glucose Arterial Blood Ionized Calcium Urine WBC (Auto) Coronavirus (PCR) SARS-CoV-2 IgG Ab Crossmatch 06/29/20 06/29/20 06/29/20 03:11 04:00 04:00 WBC 18.8 H RBC 2.82 L Hgb 10.1 L Hct 28.5 L MCV 101 H MCH 36 H MCHC 36 H RDW 17.5 H Lymph % (Auto) 10.7 L [place] % (Auto) Lymph # (Auto) [place] # (Auto) 1.0 H Baso # (Auto) 0.3 H Seg Neutrophils % 82.2 H Seg Neuts % (Manual) Lymphocytes % (Manual) Nucleated RBC % Seg Neutrophils # 15.5 H Seg Neutrophils # Man Lymphocytes # (Manual) Monocytes # (Manual) Eosinophils # (Manual) PT INR APTT D-Dimer Heparin Anti-Xa Level ABG pH POC ABG pCO2 57.5 H POC ABG pO2 69.1 L ABG pO2 ABG HCO3 ABG O2 Saturation ABG Base Excess ABG Hemoglobin 10.2 L ABG Oxyhemoglobin 92.3 L ABG Sodium 130.7 L ABG Potassium 3.2 L ABG Chloride 93.0 L ABG Glucose 228 H Oxyhemoglobin Carboxyhemoglobin Sodium 134 L Potassium 3.3 L Chloride 89.5 L Carbon Dioxide 40 H BUN Creatinine 0.2 L Glucose 190 H POC Glucose Lactic Acid Calcium Magnesium Ferritin Total Bilirubin Direct Bilirubin AST < 5 L ALT < 5 L Alkaline Phosphatase Lactate Dehydrogenase C-Reactive Protein Total Protein 5.9 L Albumin 2.2 L Triglycerides Lipase Arterial Blood Glucose 228 H Arterial Blood Ionized Calcium Urine WBC (Auto) Coronavirus (PCR) SARS-CoV-2 IgG Ab Crossmatch 06/29/20 06/29/20 06/29/20 05:00 05:23 09:36 WBC RBC Hgb Hct MCV MCH MCHC RDW Lymph % (Auto) [place] % (Auto) Lymph # (Auto) [place] # (Auto) Baso # (Auto) Seg Neutrophils % Seg Neuts % (Manual) Lymphocytes % (Manual) Nucleated RBC % Seg Neutrophils # Seg Neutrophils # Man Lymphocytes # (Manual) Monocytes # (Manual) Eosinophils # (Manual) PT INR APTT D-Dimer Heparin Anti-Xa Level ABG pH POC ABG pCO2 POC ABG pO2 ABG pO2 ABG HCO3 ABG O2 Saturation ABG Base Excess ABG Hemoglobin ABG Oxyhemoglobin ABG Sodium ABG Potassium ABG Chloride ABG Glucose Oxyhemoglobin Carboxyhemoglobin Sodium Potassium Chloride Carbon Dioxide BUN Creatinine Glucose POC Glucose 165 H Lactic Acid Calcium Magnesium Ferritin Total Bilirubin Direct Bilirubin AST ALT Alkaline Phosphatase Lactate Dehydrogenase C-Reactive Protein Total Protein Albumin Triglycerides 1544 H 1799 H Lipase Arterial Blood Glucose Arterial Blood Ionized Calcium Urine WBC (Auto) Coronavirus (PCR) SARS-CoV-2 IgG Ab Crossmatch 12/22/20 12/22/20 12/22/20 09:36 12:02 18:00 WBC RBC Hgb Hct MCV MCH MCHC RDW Lymph % (Auto) [place] % (Auto) Lymph # (Auto) [place] # (Auto) Baso # (Auto) Seg Neutrophils % Seg Neuts % (Manual) Lymphocytes % (Manual) Nucleated RBC % Seg Neutrophils # Seg Neutrophils # Man Lymphocytes # (Manual) Monocytes # (Manual) Eosinophils # (Manual) PT INR APTT D-Dimer Heparin Anti-Xa Level ABG pH POC ABG pCO2 POC ABG pO2 ABG pO2 ABG HCO3 ABG O2 Saturation ABG Base Excess ABG Hemoglobin ABG Oxyhemoglobin ABG Sodium ABG Potassium ABG Chloride ABG Glucose Oxyhemoglobin Carboxyhemoglobin Sodium Potassium Chloride Carbon Dioxide BUN Creatinine Glucose POC Glucose 197 H 187 H Lactic Acid Calcium Magnesium Ferritin Total Bilirubin Direct Bilirubin AST ALT Alkaline Phosphatase Lactate Dehydrogenase C-Reactive Protein Total Protein Albumin Triglycerides Lipase 86 H Arterial Blood Glucose Arterial Blood Ionized Calcium Urine WBC (Auto) Coronavirus (PCR) SARS-CoV-2 IgG Ab Crossmatch 06/29/20 06/30/20 06/30/20 23:33 03:46 05:50 WBC RBC Hgb Hct MCV MCH MCHC RDW Lymph % (Auto) [place] % (Auto) Lymph # (Auto) [place] # (Auto) Baso # (Auto) Seg Neutrophils % Seg Neuts % (Manual) Lymphocytes % (Manual) Nucleated RBC % Seg Neutrophils # Seg Neutrophils # Man Lymphocytes # (Manual) Monocytes # (Manual) Eosinophils # (Manual) PT INR APTT D-Dimer Heparin Anti-Xa Level ABG pH 7.466 H POC ABG pCO2 57.3 H POC ABG pO2 66.1 L ABG pO2 ABG HCO3 ABG O2 Saturation ABG Base Excess ABG Hemoglobin 10.2 L ABG Oxyhemoglobin 92.3 L ABG Sodium 134.4 L ABG Potassium 3.2 L ABG Chloride 94.0 L ABG Glucose 178 H Oxyhemoglobin Carboxyhemoglobin Sodium Potassium Chloride Carbon Dioxide BUN Creatinine Glucose POC Glucose 170 H 170 H Lactic Acid Calcium Magnesium Ferritin Total Bilirubin Direct Bilirubin AST ALT Alkaline Phosphatase Lactate Dehydrogenase C-Reactive Protein Total Protein Albumin Triglycerides Lipase Arterial Blood Glucose 178 H Arterial Blood Ionized Calcium Urine WBC (Auto) Coronavirus (PCR) SARS-CoV-2 IgG Ab Crossmatch 06/30/20 06/30/20 06/30/20 07:00 07:00 12:04 WBC 15.6 H RBC 2.91 L Hgb 9.8 L Hct 29.7 L MCV 102 H MCH 34 H MCHC RDW 17.8 H Lymph % (Auto) [place] % (Auto) Lymph # (Auto) [place] # (Auto) Baso # (Auto) Seg Neutrophils % Seg Neuts % (Manual) Lymphocytes % (Manual) 5.0 L Nucleated RBC % Seg Neutrophils # Seg Neutrophils # Man 14.8 H Lymphocytes # (Manual) 0.8 L Monocytes # (Manual) Eosinophils # (Manual) PT INR APTT D-Dimer Heparin Anti-Xa Level ABG pH POC ABG pCO2 POC ABG pO2 ABG pO2 ABG HCO3 ABG O2 Saturation ABG Base Excess ABG Hemoglobin ABG Oxyhemoglobin ABG Sodium ABG Potassium ABG Chloride ABG Glucose Oxyhemoglobin Carboxyhemoglobin Sodium Potassium Chloride 93.3 L Carbon Dioxide 43 H* BUN Creatinine 0.3 L Glucose 260 H POC Glucose 245 H Lactic Acid Calcium Magnesium Ferritin Total Bilirubin Direct Bilirubin AST ALT Alkaline Phosphatase Lactate Dehydrogenase C-Reactive Protein Total Protein Albumin 2.8 L Triglycerides 452 H Lipase Arterial Blood Glucose Arterial Blood Ionized Calcium Urine WBC (Auto) Coronavirus (PCR) SARS-CoV-2 IgG Ab Crossmatch 06/30/20 07/01/20 07/01/20 17:32 00:02 05:02 WBC RBC Hgb Hct MCV MCH MCHC RDW Lymph % (Auto) [place] % (Auto) Lymph # (Auto) [place] # (Auto) Baso # (Auto) Seg Neutrophils % Seg Neuts % (Manual) Lymphocytes % (Manual) Nucleated RBC % Seg Neutrophils # Seg Neutrophils # Man Lymphocytes # (Manual) Monocytes # (Manual) Eosinophils # (Manual) PT INR APTT D-Dimer Heparin Anti-Xa Level ABG pH POC ABG pCO2 58.1 H POC ABG pO2 ABG pO2 ABG HCO3 ABG O2 Saturation ABG Base Excess ABG Hemoglobin 11.2 L ABG Oxyhemoglobin ABG Sodium 132.7 L ABG Potassium ABG Chloride 92.0 L ABG Glucose 238 H Oxyhemoglobin Carboxyhemoglobin Sodium Potassium Chloride Carbon Dioxide BUN Creatinine Glucose POC Glucose 209 H 208 H Lactic Acid Calcium Magnesium Ferritin Total Bilirubin Direct Bilirubin AST ALT Alkaline Phosphatase Lactate Dehydrogenase C-Reactive Protein Total Protein Albumin Triglycerides Lipase Arterial Blood Glucose 238 H Arterial Blood Ionized Calcium Urine WBC (Auto) Coronavirus (PCR) SARS-CoV-2 IgG Ab Crossmatch 07/01/20 07/01/20 07/01/20 06:16 06:41 06:41 WBC 18.1 H RBC 2.33 L Hgb 7.1 L Hct 21.3 L D MCV MCH MCHC RDW Lymph % (Auto) [place] % (Auto) Lymph # (Auto) [place] # (Auto) Baso # (Auto) Seg Neutrophils % Seg Neuts % (Manual) 82.0 H Lymphocytes % (Manual) 7.0 L Nucleated RBC % 1.0 H Seg Neutrophils # Seg Neutrophils # Man 14.8 H Lymphocytes # (Manual) Monocytes # (Manual) 1.1 H Eosinophils # (Manual) 0.5 H PT INR APTT D-Dimer Heparin Anti-Xa Level < 0.10 L ABG pH POC ABG pCO2 POC ABG pO2 ABG pO2 ABG HCO3 ABG O2 Saturation ABG Base Excess ABG Hemoglobin ABG Oxyhemoglobin ABG Sodium ABG Potassium ABG Chloride ABG Glucose Oxyhemoglobin Carboxyhemoglobin Sodium Potassium Chloride Carbon Dioxide BUN Creatinine Glucose POC Glucose 180 H Lactic Acid Calcium Magnesium Ferritin Total Bilirubin Direct Bilirubin AST ALT Alkaline Phosphatase Lactate Dehydrogenase C-Reactive Protein Total Protein Albumin Triglycerides Lipase Arterial Blood Glucose Arterial Blood Ionized Calcium Urine WBC (Auto) Coronavirus (PCR) SARS-CoV-2 IgG Ab Crossmatch 07/01/20 07/01/20 07/01/20 08:11 12:04 16:16 WBC RBC Hgb Hct MCV MCH MCHC RDW Lymph % (Auto) [place] % (Auto) Lymph # (Auto) [place] # (Auto) Baso # (Auto) Seg Neutrophils % Seg Neuts % (Manual) Lymphocytes % (Manual) Nucleated RBC % Seg Neutrophils # Seg Neutrophils # Man Lymphocytes # (Manual) Monocytes # (Manual) Eosinophils # (Manual) PT INR APTT D-Dimer Heparin Anti-Xa Level 1.02 H ABG pH POC ABG pCO2 POC ABG pO2 ABG pO2 ABG HCO3 ABG O2 Saturation ABG Base Excess ABG Hemoglobin ABG Oxyhemoglobin ABG Sodium ABG Potassium ABG Chloride ABG Glucose Oxyhemoglobin Carboxyhemoglobin Sodium 135 L Potassium 3.0 L Chloride 93.1 L Carbon Dioxide 40 H BUN Creatinine 0.3 L Glucose 140 H POC Glucose 223 H Lactic Acid Calcium Magnesium Ferritin Total Bilirubin Direct Bilirubin AST ALT Alkaline Phosphatase Lactate Dehydrogenase C-Reactive Protein Total Protein Albumin Triglycerides Lipase Arterial Blood Glucose Arterial Blood Ionized Calcium Urine WBC (Auto) Coronavirus (PCR) SARS-CoV-2 IgG Ab Crossmatch 07/01/20 07/01/20 07/02/20 17:09 23:19 00:56 WBC RBC Hgb Hct MCV MCH MCHC RDW Lymph % (Auto) [place] % (Auto) Lymph # (Auto) [place] # (Auto) Baso # (Auto) Seg Neutrophils % Seg Neuts % (Manual) Lymphocytes % (Manual) Nucleated RBC % Seg Neutrophils # Seg Neutrophils # Man Lymphocytes # (Manual) Monocytes # (Manual) Eosinophils # (Manual) PT INR APTT D-Dimer Heparin Anti-Xa Level 0.22 L ABG pH POC ABG pCO2 POC ABG pO2 ABG pO2 ABG HCO3 ABG O2 Saturation ABG Base Excess ABG Hemoglobin ABG Oxyhemoglobin ABG Sodium ABG Potassium ABG Chloride ABG Glucose Oxyhemoglobin Carboxyhemoglobin Sodium Potassium Chloride Carbon Dioxide BUN Creatinine Glucose POC Glucose 233 H 255 H Lactic Acid Calcium Magnesium Ferritin Total Bilirubin Direct Bilirubin AST ALT Alkaline Phosphatase Lactate Dehydrogenase C-Reactive Protein Total Protein Albumin Triglycerides Lipase Arterial Blood Glucose Arterial Blood Ionized Calcium Urine WBC (Auto) Coronavirus (PCR) SARS-CoV-2 IgG Ab Crossmatch 07/02/20 07/02/20 07/02/20 03:51 05:35 11:39 WBC RBC Hgb Hct MCV MCH MCHC RDW Lymph % (Auto) [place] % (Auto) Lymph # (Auto) [place] # (Auto) Baso # (Auto) Seg Neutrophils % Seg Neuts % (Manual) Lymphocytes % (Manual) Nucleated RBC % Seg Neutrophils # Seg Neutrophils # Man Lymphocytes # (Manual) Monocytes # (Manual) Eosinophils # (Manual) PT INR APTT D-Dimer Heparin Anti-Xa Level ABG pH POC ABG pCO2 54.9 H POC ABG pO2 52.1 L ABG pO2 ABG HCO3 ABG O2 Saturation ABG Base Excess ABG Hemoglobin 11.9 L ABG Oxyhemoglobin 82.8 L ABG Sodium 130.2 L ABG Potassium ABG Chloride 92.0 L ABG Glucose 249 H Oxyhemoglobin Carboxyhemoglobin 1.9 H Sodium Potassium Chloride Carbon Dioxide BUN Creatinine Glucose POC Glucose 205 H 235 H Lactic Acid Calcium Magnesium Ferritin Total Bilirubin Direct Bilirubin AST ALT Alkaline Phosphatase Lactate Dehydrogenase C-Reactive Protein Total Protein Albumin Triglycerides Lipase Arterial Blood Glucose 249 H Arterial Blood Ionized Calcium Urine WBC (Auto) Coronavirus (PCR) SARS-CoV-2 IgG Ab Crossmatch 07/02/20 07/02/20 07/02/20 16:08 16:08 17:54 WBC 19.8 H RBC 3.28 L Hgb 10.7 L D Hct 32.7 L D MCV 100 H MCH 33 H MCHC RDW 17.2 H Lymph % (Auto) [place] % (Auto) Lymph # (Auto) [place] # (Auto) Baso # (Auto) Seg Neutrophils % Seg Neuts % (Manual) Lymphocytes % (Manual) Nucleated RBC % Seg Neutrophils # Seg Neutrophils # Man Lymphocytes # (Manual) Monocytes # (Manual) Eosinophils # (Manual) PT INR APTT D-Dimer Heparin Anti-Xa Level ABG pH POC ABG pCO2 POC ABG pO2 ABG pO2 ABG HCO3 ABG O2 Saturation ABG Base Excess ABG Hemoglobin ABG Oxyhemoglobin ABG Sodium ABG Potassium ABG Chloride ABG Glucose Oxyhemoglobin Carboxyhemoglobin Sodium 136 L Potassium Chloride 92.4 L Carbon Dioxide 35 H BUN Creatinine 0.3 L Glucose 203 H POC Glucose 175 H Lactic Acid Calcium Magnesium Ferritin Total Bilirubin Direct Bilirubin AST ALT Alkaline Phosphatase Lactate Dehydrogenase C-Reactive Protein Total Protein Albumin Triglycerides Lipase Arterial Blood Glucose Arterial Blood Ionized Calcium Urine WBC (Auto) Coronavirus (PCR) SARS-CoV-2 IgG Ab Crossmatch 07/02/20 07/03/20 07/03/20 23:46 03:25 05:54 WBC RBC Hgb Hct MCV MCH MCHC RDW Lymph % (Auto) [place] % (Auto) Lymph # (Auto) [place] # (Auto) Baso # (Auto) Seg Neutrophils % Seg Neuts % (Manual) Lymphocytes % (Manual) Nucleated RBC % Seg Neutrophils # Seg Neutrophils # Man Lymphocytes # (Manual) Monocytes # (Manual) Eosinophils # (Manual) PT INR APTT D-Dimer Heparin Anti-Xa Level ABG pH 7.468 H POC ABG pCO2 51.5 H POC ABG pO2 ABG pO2 ABG HCO3 ABG O2 Saturation ABG Base Excess ABG Hemoglobin ABG Oxyhemoglobin ABG Sodium 130.2 L ABG Potassium ABG Chloride 91.0 L ABG Glucose 210 H Oxyhemoglobin Carboxyhemoglobin 1.6 H Sodium Potassium Chloride Carbon Dioxide BUN Creatinine Glucose POC Glucose 173 H 125 H Lactic Acid Calcium Magnesium Ferritin Total Bilirubin Direct Bilirubin AST ALT Alkaline Phosphatase Lactate Dehydrogenase C-Reactive Protein Total Protein Albumin Triglycerides Lipase Arterial Blood Glucose 210 H Arterial Blood Ionized Calcium Urine WBC (Auto) Coronavirus (PCR) SARS-CoV-2 IgG Ab Crossmatch 07/03/20 07/03/20 07/03/20 11:43 12:20 12:20 WBC 16.5 H RBC 3.13 L Hgb 10.4 L Hct 31.8 L MCV 102 H MCH 33 H MCHC RDW 17.2 H Lymph % (Auto) [place] % (Auto) Lymph # (Auto) [place] # (Auto) Baso # (Auto) Seg Neutrophils % Seg Neuts % (Manual) Lymphocytes % (Manual) Nucleated RBC % Seg Neutrophils # Seg Neutrophils # Man Lymphocytes # (Manual) Monocytes # (Manual) Eosinophils # (Manual) PT INR APTT D-Dimer Heparin Anti-Xa Level ABG pH POC ABG pCO2 POC ABG pO2 ABG pO2 ABG HCO3 ABG O2 Saturation ABG Base Excess ABG Hemoglobin ABG Oxyhemoglobin ABG Sodium ABG Potassium ABG Chloride ABG Glucose Oxyhemoglobin Carboxyhemoglobin Sodium 132 L Potassium Chloride 88.5 L Carbon Dioxide 37 H BUN Creatinine 0.3 L Glucose 230 H POC Glucose 223 H Lactic Acid Calcium Magnesium Ferritin Total Bilirubin Direct Bilirubin AST ALT Alkaline Phosphatase Lactate Dehydrogenase C-Reactive Protein Total Protein Albumin Triglycerides Lipase Arterial Blood Glucose Arterial Blood Ionized Calcium Urine WBC (Auto) Coronavirus (PCR) SARS-CoV-2 IgG Ab Crossmatch 07/03/20 07/03/20 07/04/20 17:24 21:41 00:54 WBC RBC Hgb Hct MCV MCH MCHC RDW Lymph % (Auto) [place] % (Auto) Lymph # (Auto) [place] # (Auto) Baso # (Auto) Seg Neutrophils % Seg Neuts % (Manual) Lymphocytes % (Manual) Nucleated RBC % Seg Neutrophils # Seg Neutrophils # Man Lymphocytes # (Manual) Monocytes # (Manual) Eosinophils # (Manual) PT INR APTT D-Dimer Heparin Anti-Xa Level ABG pH POC ABG pCO2 POC ABG pO2 ABG pO2 ABG HCO3 ABG O2 Saturation ABG Base Excess ABG Hemoglobin ABG Oxyhemoglobin ABG Sodium ABG Potassium ABG Chloride ABG Glucose Oxyhemoglobin Carboxyhemoglobin Sodium Potassium Chloride Carbon Dioxide BUN Creatinine Glucose POC Glucose 163 H 220 H 195 H Lactic Acid Calcium Magnesium Ferritin Total Bilirubin Direct Bilirubin AST ALT Alkaline Phosphatase Lactate Dehydrogenase C-Reactive Protein Total Protein Albumin Triglycerides Lipase Arterial Blood Glucose Arterial Blood Ionized Calcium Urine WBC (Auto) Coronavirus (PCR) SARS-CoV-2 IgG Ab Crossmatch 07/04/20 07/04/20 07/04/20 03:25 04:00 04:00 WBC 14.9 H RBC 2.91 L Hgb 9.5 L Hct 29.2 L MCV 100 H MCH 33 H MCHC RDW 16.7 H Lymph % (Auto) 8.4 L [place] % (Auto) Lymph # (Auto) [place] # (Auto) 1.1 H Baso # (Auto) Seg Neutrophils % 84.2 H Seg Neuts % (Manual) Lymphocytes % (Manual) Nucleated RBC % Seg Neutrophils # 12.6 H Seg Neutrophils # Man Lymphocytes # (Manual) Monocytes # (Manual) Eosinophils # (Manual) PT INR APTT D-Dimer Heparin Anti-Xa Level ABG pH 7.474 H POC ABG pCO2 POC ABG pO2 51.8 L ABG pO2 ABG HCO3 ABG O2 Saturation ABG Base Excess ABG Hemoglobin ABG Oxyhemoglobin ABG Sodium ABG Potassium ABG Chloride ABG Glucose Oxyhemoglobin Carboxyhemoglobin Sodium Potassium 3.4 L Chloride 92.1 L Carbon Dioxide 34 H BUN Creatinine 0.3 L Glucose 173 H POC Glucose Lactic Acid Calcium Magnesium Ferritin Total Bilirubin Direct Bilirubin AST ALT Alkaline Phosphatase Lactate Dehydrogenase C-Reactive Protein Total Protein Albumin Triglycerides Lipase Arterial Blood Glucose Arterial Blood Ionized Calcium Urine WBC (Auto) Coronavirus (PCR) SARS-CoV-2 IgG Ab Crossmatch 07/04/20 07/04/20 07/04/20 06:18 11:39 17:18 WBC RBC Hgb Hct MCV MCH MCHC RDW Lymph % (Auto) [place] % (Auto) Lymph # (Auto) [place] # (Auto) Baso # (Auto) Seg Neutrophils % Seg Neuts % (Manual) Lymphocytes % (Manual) Nucleated RBC % Seg Neutrophils # Seg Neutrophils # Man Lymphocytes # (Manual) Monocytes # (Manual) Eosinophils # (Manual) PT INR APTT D-Dimer Heparin Anti-Xa Level ABG pH POC ABG pCO2 POC ABG pO2 ABG pO2 ABG HCO3 ABG O2 Saturation ABG Base Excess ABG Hemoglobin ABG Oxyhemoglobin ABG Sodium ABG Potassium ABG Chloride ABG Glucose Oxyhemoglobin Carboxyhemoglobin Sodium Potassium Chloride Carbon Dioxide BUN Creatinine Glucose POC Glucose 158 H 257 H 148 H Lactic Acid Calcium Magnesium Ferritin Total Bilirubin Direct Bilirubin AST ALT Alkaline Phosphatase Lactate Dehydrogenase C-Reactive Protein Total Protein Albumin Triglycerides Lipase Arterial Blood Glucose Arterial Blood Ionized Calcium Urine WBC (Auto) Coronavirus (PCR) SARS-CoV-2 IgG Ab Crossmatch 07/04/20 07/05/20 07/05/20 23:23 03:13 05:18 WBC 13.3 H RBC 2.90 L Hgb 9.8 L Hct 29.3 L MCV 101 H MCH 34 H MCHC RDW 17.0 H Lymph % (Auto) 11.1 L [place] % (Auto) Lymph # (Auto) [place] # (Auto) Baso # (Auto) Seg Neutrophils % 82.3 H Seg Neuts % (Manual) Lymphocytes % (Manual) Nucleated RBC % Seg Neutrophils # 10.9 H Seg Neutrophils # Man Lymphocytes # (Manual) Monocytes # (Manual) Eosinophils # (Manual) PT INR APTT D-Dimer Heparin Anti-Xa Level ABG pH 7.48 H POC ABG pCO2 52.0 H POC ABG pO2 ABG pO2 ABG HCO3 ABG O2 Saturation ABG Base Excess ABG Hemoglobin 10.0 L ABG Oxyhemoglobin ABG Sodium 131.0 L ABG Potassium 3.3 L ABG Chloride 93.0 L ABG Glucose 177 H Oxyhemoglobin Carboxyhemoglobin Sodium Potassium Chloride Carbon Dioxide BUN Creatinine Glucose POC Glucose 227 H Lactic Acid Calcium Magnesium Ferritin Total Bilirubin Direct Bilirubin AST ALT Alkaline Phosphatase Lactate Dehydrogenase C-Reactive Protein Total Protein Albumin Triglycerides Lipase Arterial Blood Glucose 177 H Arterial Blood Ionized Calcium Urine WBC (Auto) Coronavirus (PCR) SARS-CoV-2 IgG Ab Crossmatch 07/05/20 07/05/20 07/05/20 05:18 05:25 05:57 WBC RBC Hgb Hct MCV MCH MCHC RDW Lymph % (Auto) [place] % (Auto) Lymph # (Auto) [place] # (Auto) Baso # (Auto) Seg Neutrophils % Seg Neuts % (Manual) Lymphocytes % (Manual) Nucleated RBC % Seg Neutrophils # Seg Neutrophils # Man Lymphocytes # (Manual) Monocytes # (Manual) Eosinophils # (Manual) PT INR APTT D-Dimer Heparin Anti-Xa Level ABG pH 7.519 H POC ABG pCO2 POC ABG pO2 198.6 H ABG pO2 ABG HCO3 ABG O2 Saturation ABG Base Excess ABG Hemoglobin 10.3 L ABG Oxyhemoglobin 98.7 H ABG Sodium 133.6 L ABG Potassium 3.3 L ABG Chloride 93.0 L ABG Glucose 175 H Oxyhemoglobin Carboxyhemoglobin Sodium Potassium 3.4 L Chloride 92.5 L Carbon Dioxide 36 H BUN Creatinine 0.3 L Glucose 148 H POC Glucose 170 H Lactic Acid Calcium Magnesium Ferritin Total Bilirubin Direct Bilirubin AST ALT Alkaline Phosphatase Lactate Dehydrogenase C-Reactive Protein Total Protein Albumin Triglycerides Lipase Arterial Blood Glucose 175 H Arterial Blood Ionized Calcium Urine WBC (Auto) Coronavirus (PCR) SARS-CoV-2 IgG Ab Crossmatch 07/05/20 07/05/20 07/06/20 11:37 18:39 00:04 WBC RBC Hgb Hct MCV MCH MCHC RDW Lymph % (Auto) [place] % (Auto) Lymph # (Auto) [place] # (Auto) Baso # (Auto) Seg Neutrophils % Seg Neuts % (Manual) Lymphocytes % (Manual) Nucleated RBC % Seg Neutrophils # Seg Neutrophils # Man Lymphocytes # (Manual) Monocytes # (Manual) Eosinophils # (Manual) PT INR APTT D-Dimer Heparin Anti-Xa Level ABG pH POC ABG pCO2 POC ABG pO2 ABG pO2 ABG HCO3 ABG O2 Saturation ABG Base Excess ABG Hemoglobin ABG Oxyhemoglobin ABG Sodium ABG Potassium ABG Chloride ABG Glucose Oxyhemoglobin Carboxyhemoglobin Sodium Potassium Chloride Carbon Dioxide BUN Creatinine Glucose POC Glucose 195 H 200 H 222 H Lactic Acid Calcium Magnesium Ferritin Total Bilirubin Direct Bilirubin AST ALT Alkaline Phosphatase Lactate Dehydrogenase C-Reactive Protein Total Protein Albumin Triglycerides Lipase Arterial Blood Glucose Arterial Blood Ionized Calcium Urine WBC (Auto) Coronavirus (PCR) SARS-CoV-2 IgG Ab Crossmatch 07/06/20 07/06/20 07/06/20 05:25 06:52 06:52 WBC 15.8 H RBC 3.17 L Hgb 10.4 L Hct 31.5 L MCV 99 H MCH 33 H MCHC RDW 17.0 H Lymph % (Auto) [place] % (Auto) Lymph # (Auto) [place] # (Auto) Baso # (Auto) Seg Neutrophils % Seg Neuts % (Manual) Lymphocytes % (Manual) Nucleated RBC % Seg Neutrophils # Seg Neutrophils # Man Lymphocytes # (Manual) Monocytes # (Manual) Eosinophils # (Manual) PT INR APTT D-Dimer Heparin Anti-Xa Level ABG pH POC ABG pCO2 POC ABG pO2 ABG pO2 ABG HCO3 ABG O2 Saturation ABG Base Excess ABG Hemoglobin ABG Oxyhemoglobin ABG Sodium ABG Potassium ABG Chloride ABG Glucose Oxyhemoglobin Carboxyhemoglobin Sodium 135 L Potassium 3.4 L Chloride 91.9 L Carbon Dioxide 38 H BUN Creatinine 0.3 L Glucose 189 H POC Glucose 165 H Lactic Acid Calcium Magnesium Ferritin Total Bilirubin Direct Bilirubin AST ALT Alkaline Phosphatase Lactate Dehydrogenase C-Reactive Protein Total Protein Albumin Triglycerides Lipase Arterial Blood Glucose Arterial Blood Ionized Calcium Urine WBC (Auto) Coronavirus (PCR) SARS-CoV-2 IgG Ab Crossmatch 07/06/20 07/06/20 07/06/20 13:01 18:04 23:08 WBC RBC Hgb Hct MCV MCH MCHC RDW Lymph % (Auto) [place] % (Auto) Lymph # (Auto) [place] # (Auto) Baso # (Auto) Seg Neutrophils % Seg Neuts % (Manual) Lymphocytes % (Manual) Nucleated RBC % Seg Neutrophils # Seg Neutrophils # Man Lymphocytes # (Manual) Monocytes # (Manual) Eosinophils # (Manual) PT INR APTT D-Dimer Heparin Anti-Xa Level ABG pH POC ABG pCO2 POC ABG pO2 ABG pO2 ABG HCO3 ABG O2 Saturation ABG Base Excess ABG Hemoglobin ABG Oxyhemoglobin ABG Sodium ABG Potassium ABG Chloride ABG Glucose Oxyhemoglobin Carboxyhemoglobin Sodium Potassium Chloride Carbon Dioxide BUN Creatinine Glucose POC Glucose 195 H 169 H 173 H Lactic Acid Calcium Magnesium Ferritin Total Bilirubin Direct Bilirubin AST ALT Alkaline Phosphatase Lactate Dehydrogenase C-Reactive Protein Total Protein Albumin Triglycerides Lipase Arterial Blood Glucose Arterial Blood Ionized Calcium Urine WBC (Auto) Coronavirus (PCR) SARS-CoV-2 IgG Ab Crossmatch 07/07/20 07/07/20 07/07/20 05:35 05:35 05:39 WBC 17.6 H RBC 3.16 L Hgb 10.4 L Hct 31.5 L MCV 100 H MCH 33 H MCHC RDW 16.7 H Lymph % (Auto) 11.1 L [place] % (Auto) Lymph # (Auto) [place] # (Auto) 1.0 H Baso # (Auto) Seg Neutrophils % 83.0 H Seg Neuts % (Manual) Lymphocytes % (Manual) Nucleated RBC % Seg Neutrophils # 14.6 H Seg Neutrophils # Man Lymphocytes # (Manual) Monocytes # (Manual) Eosinophils # (Manual) PT INR APTT D-Dimer Heparin Anti-Xa Level ABG pH POC ABG pCO2 POC ABG pO2 ABG pO2 ABG HCO3 ABG O2 Saturation ABG Base Excess ABG Hemoglobin ABG Oxyhemoglobin ABG Sodium ABG Potassium ABG Chloride ABG Glucose Oxyhemoglobin Carboxyhemoglobin Sodium 135 L Potassium 3.4 L Chloride 94.3 L Carbon Dioxide 32 H BUN Creatinine 0.2 L Glucose 240 H POC Glucose 191 H Lactic Acid Calcium Magnesium Ferritin Total Bilirubin Direct Bilirubin AST ALT Alkaline Phosphatase Lactate Dehydrogenase C-Reactive Protein Total Protein Albumin Triglycerides Lipase Arterial Blood Glucose Arterial Blood Ionized Calcium Urine WBC (Auto) Coronavirus (PCR) SARS-CoV-2 IgG Ab Crossmatch 07/07/20 07/07/20 07/07/20 12:08 16:39 23:41 WBC RBC Hgb Hct MCV MCH MCHC RDW Lymph % (Auto) [place] % (Auto) Lymph # (Auto) [place] # (Auto) Baso # (Auto) Seg Neutrophils % Seg Neuts % (Manual) Lymphocytes % (Manual) Nucleated RBC % Seg Neutrophils # Seg Neutrophils # Man Lymphocytes # (Manual) Monocytes # (Manual) Eosinophils # (Manual) PT INR APTT D-Dimer Heparin Anti-Xa Level ABG pH POC ABG pCO2 POC ABG pO2 ABG pO2 ABG HCO3 ABG O2 Saturation ABG Base Excess ABG Hemoglobin ABG Oxyhemoglobin ABG Sodium ABG Potassium ABG Chloride ABG Glucose Oxyhemoglobin Carboxyhemoglobin Sodium Potassium Chloride Carbon Dioxide BUN Creatinine Glucose POC Glucose 248 H 209 H 231 H Lactic Acid Calcium Magnesium Ferritin Total Bilirubin Direct Bilirubin AST ALT Alkaline Phosphatase Lactate Dehydrogenase C-Reactive Protein Total Protein Albumin Triglycerides Lipase Arterial Blood Glucose Arterial Blood Ionized Calcium Urine WBC (Auto) Coronavirus (PCR) SARS-CoV-2 IgG Ab Crossmatch 07/08/20 07/08/20 07/08/20 04:58 04:58 05:38 WBC 21.0 H RBC 2.86 L Hgb 9.2 L Hct 28.6 L MCV 100 H MCH MCHC RDW 16.7 H Lymph % (Auto) [place] % (Auto) Lymph # (Auto) [place] # (Auto) Baso # (Auto) Seg Neutrophils % Seg Neuts % (Manual) 93.0 H Lymphocytes % (Manual) 3.0 L Nucleated RBC % Seg Neutrophils # Seg Neutrophils # Man 19.5 H Lymphocytes # (Manual) 0.6 L Monocytes # (Manual) Eosinophils # (Manual) PT INR APTT D-Dimer Heparin Anti-Xa Level ABG pH POC ABG pCO2 POC ABG pO2 ABG pO2 ABG HCO3 ABG O2 Saturation ABG Base Excess ABG Hemoglobin ABG Oxyhemoglobin ABG Sodium ABG Potassium ABG Chloride ABG Glucose Oxyhemoglobin Carboxyhemoglobin Sodium Potassium 3.0 L Chloride Carbon Dioxide BUN Creatinine 0.2 L Glucose 201 H POC Glucose 161 H Lactic Acid Calcium 7.9 L D Magnesium Ferritin Total Bilirubin Direct Bilirubin AST ALT Alkaline Phosphatase Lactate Dehydrogenase C-Reactive Protein Total Protein Albumin Triglycerides Lipase Arterial Blood Glucose Arterial Blood Ionized Calcium Urine WBC (Auto) Coronavirus (PCR) SARS-CoV-2 IgG Ab Crossmatch 07/08/20 07/08/20 07/08/20 12:19 16:26 Unknown WBC RBC Hgb Hct MCV MCH MCHC RDW Lymph % (Auto) [place] % (Auto) Lymph # (Auto) [place] # (Auto) Baso # (Auto) Seg Neutrophils % Seg Neuts % (Manual) Lymphocytes % (Manual) Nucleated RBC % Seg Neutrophils # Seg Neutrophils # Man Lymphocytes # (Manual) Monocytes # (Manual) Eosinophils # (Manual) PT INR APTT D-Dimer Heparin Anti-Xa Level ABG pH POC ABG pCO2 POC ABG pO2 ABG pO2 75.3 L ABG HCO3 34.3 H ABG O2 Saturation ABG Base Excess 8.7 H ABG Hemoglobin 10.2 L ABG Oxyhemoglobin ABG Sodium ABG Potassium ABG Chloride ABG Glucose Oxyhemoglobin 93.7 L Carboxyhemoglobin Sodium Potassium Chloride Carbon Dioxide BUN Creatinine Glucose POC Glucose 152 H 173 H Lactic Acid Calcium Magnesium Ferritin Total Bilirubin Direct Bilirubin AST ALT Alkaline Phosphatase Lactate Dehydrogenase C-Reactive Protein Total Protein Albumin Triglycerides Lipase Arterial Blood Glucose Arterial Blood Ionized Calcium Urine WBC (Auto) Coronavirus (PCR) SARS-CoV-2 IgG Ab Crossmatch 07/09/20 07/09/20 07/09/20 00:01 06:00 11:55 WBC RBC Hgb Hct MCV MCH MCHC RDW Lymph % (Auto) [place] % (Auto) Lymph # (Auto) [place] # (Auto) Baso # (Auto) Seg Neutrophils % Seg Neuts % (Manual) Lymphocytes % (Manual) Nucleated RBC % Seg Neutrophils # Seg Neutrophils # Man Lymphocytes # (Manual) Monocytes # (Manual) Eosinophils # (Manual) PT INR APTT D-Dimer Heparin Anti-Xa Level ABG pH POC ABG pCO2 POC ABG pO2 ABG pO2 ABG HCO3 ABG O2 Saturation ABG Base Excess ABG Hemoglobin ABG Oxyhemoglobin ABG Sodium ABG Potassium ABG Chloride ABG Glucose Oxyhemoglobin Carboxyhemoglobin Sodium Potassium Chloride Carbon Dioxide BUN Creatinine Glucose POC Glucose 207 H 141 H 228 H Lactic Acid Calcium Magnesium Ferritin Total Bilirubin Direct Bilirubin AST ALT Alkaline Phosphatase Lactate Dehydrogenase C-Reactive Protein Total Protein Albumin Triglycerides Lipase Arterial Blood Glucose Arterial Blood Ionized Calcium Urine WBC (Auto) Coronavirus (PCR) SARS-CoV-2 IgG Ab Crossmatch 07/09/20 07/09/20 07/09/20 16:47 23:53 Unknown WBC RBC Hgb Hct MCV MCH MCHC RDW Lymph % (Auto) [place] % (Auto) Lymph # (Auto) [place] # (Auto) Baso # (Auto) Seg Neutrophils % Seg Neuts % (Manual) Lymphocytes % (Manual) Nucleated RBC % Seg Neutrophils # Seg Neutrophils # Man Lymphocytes # (Manual) Monocytes # (Manual) Eosinophils # (Manual) PT INR APTT D-Dimer Heparin Anti-Xa Level ABG pH POC ABG pCO2 POC ABG pO2 ABG pO2 ABG HCO3 ABG O2 Saturation ABG Base Excess ABG Hemoglobin ABG Oxyhemoglobin ABG Sodium ABG Potassium ABG Chloride ABG Glucose Oxyhemoglobin Carboxyhemoglobin Sodium 132 L Potassium Chloride 92.7 L Carbon Dioxide 35 H BUN Creatinine 0.2 L Glucose 234 H POC Glucose 136 H 219 H Lactic Acid Calcium Magnesium Ferritin Total Bilirubin Direct Bilirubin AST ALT Alkaline Phosphatase Lactate Dehydrogenase C-Reactive Protein Total Protein Albumin Triglycerides Lipase Arterial Blood Glucose Arterial Blood Ionized Calcium Urine WBC (Auto) Coronavirus (PCR) SARS-CoV-2 IgG Ab Crossmatch 07/10/20 07/10/20 07/10/20 05:20 12:05 18:38 WBC RBC Hgb Hct MCV MCH MCHC RDW Lymph % (Auto) [place] % (Auto) Lymph # (Auto) [place] # (Auto) Baso # (Auto) Seg Neutrophils % Seg Neuts % (Manual) Lymphocytes % (Manual) Nucleated RBC % Seg Neutrophils # Seg Neutrophils # Man Lymphocytes # (Manual) Monocytes # (Manual) Eosinophils # (Manual) PT INR APTT D-Dimer Heparin Anti-Xa Level ABG pH POC ABG pCO2 POC ABG pO2 ABG pO2 ABG HCO3 ABG O2 Saturation ABG Base Excess ABG Hemoglobin ABG Oxyhemoglobin ABG Sodium ABG Potassium ABG Chloride ABG Glucose Oxyhemoglobin Carboxyhemoglobin Sodium Potassium Chloride Carbon Dioxide BUN Creatinine Glucose POC Glucose 221 H 174 H 152 H Lactic Acid Calcium Magnesium Ferritin Total Bilirubin Direct Bilirubin AST ALT Alkaline Phosphatase Lactate Dehydrogenase C-Reactive Protein Total Protein Albumin Triglycerides Lipase Arterial Blood Glucose Arterial Blood Ionized Calcium Urine WBC (Auto) Coronavirus (PCR) SARS-CoV-2 IgG Ab Crossmatch 07/11/20 07/11/20 07/11/20 00:16 05:42 08:13 WBC 11.9 H RBC 3.13 L Hgb 10.2 L Hct 31.2 L MCV 100 H MCH 33 H MCHC RDW 16.4 H Lymph % (Auto) [place] % (Auto) 9.3 H Lymph # (Auto) [place] # (Auto) 1.1 H Baso # (Auto) Seg Neutrophils % 72.7 H Seg Neuts % (Manual) Lymphocytes % (Manual) Nucleated RBC % Seg Neutrophils # 8.7 H Seg Neutrophils # Man Lymphocytes # (Manual) Monocytes # (Manual) Eosinophils # (Manual) PT INR APTT D-Dimer Heparin Anti-Xa Level ABG pH POC ABG pCO2 POC ABG pO2 ABG pO2 ABG HCO3 ABG O2 Saturation ABG Base Excess ABG Hemoglobin ABG Oxyhemoglobin ABG Sodium ABG Potassium ABG Chloride ABG Glucose Oxyhemoglobin Carboxyhemoglobin Sodium Potassium Chloride Carbon Dioxide BUN Creatinine Glucose POC Glucose 170 H 186 H Lactic Acid Calcium Magnesium Ferritin Total Bilirubin Direct Bilirubin AST ALT Alkaline Phosphatase Lactate Dehydrogenase C-Reactive Protein Total Protein Albumin Triglycerides Lipase Arterial Blood Glucose Arterial Blood Ionized Calcium Urine WBC (Auto) Coronavirus (PCR) SARS-CoV-2 IgG Ab Crossmatch 07/11/20 07/11/20 07/11/20 08:13 11:35 18:07 WBC RBC Hgb Hct MCV MCH MCHC RDW Lymph % (Auto) [place] % (Auto) Lymph # (Auto) [place] # (Auto) Baso # (Auto) Seg Neutrophils % Seg Neuts % (Manual) Lymphocytes % (Manual) Nucleated RBC % Seg Neutrophils # Seg Neutrophils # Man Lymphocytes # (Manual) Monocytes # (Manual) Eosinophils # (Manual) PT INR APTT D-Dimer Heparin Anti-Xa Level ABG pH POC ABG pCO2 POC ABG pO2 ABG pO2 ABG HCO3 ABG O2 Saturation ABG Base Excess ABG Hemoglobin ABG Oxyhemoglobin ABG Sodium ABG Potassium ABG Chloride ABG Glucose Oxyhemoglobin Carboxyhemoglobin Sodium 135 L Potassium Chloride 92.8 L Carbon Dioxide 38 H BUN Creatinine 0.2 L Glucose 132 H POC Glucose 129 H 156 H Lactic Acid Calcium Magnesium Ferritin Total Bilirubin Direct Bilirubin AST ALT Alkaline Phosphatase Lactate Dehydrogenase C-Reactive Protein Total Protein Albumin Triglycerides Lipase Arterial Blood Glucose Arterial Blood Ionized Calcium Urine WBC (Auto) Coronavirus (PCR) SARS-CoV-2 IgG Ab Crossmatch 07/11/20 07/11/20 07/12/20 18:36 23:18 05:28 WBC RBC Hgb Hct MCV MCH MCHC RDW Lymph % (Auto) [place] % (Auto) Lymph # (Auto) [place] # (Auto) Baso # (Auto) Seg Neutrophils % Seg Neuts % (Manual) Lymphocytes % (Manual) Nucleated RBC % Seg Neutrophils # Seg Neutrophils # Man Lymphocytes # (Manual) Monocytes # (Manual) Eosinophils # (Manual) PT INR APTT D-Dimer Heparin Anti-Xa Level ABG pH POC ABG pCO2 POC ABG pO2 70.9 L ABG pO2 ABG HCO3 ABG O2 Saturation ABG Base Excess ABG Hemoglobin 10.8 L ABG Oxyhemoglobin 92.5 L ABG Sodium 131.8 L ABG Potassium 3.2 L ABG Chloride 91.0 L ABG Glucose 181 H Oxyhemoglobin Carboxyhemoglobin Sodium Potassium Chloride Carbon Dioxide BUN Creatinine Glucose POC Glucose 189 H 190 H Lactic Acid Calcium Magnesium Ferritin Total Bilirubin Direct Bilirubin AST ALT Alkaline Phosphatase Lactate Dehydrogenase C-Reactive Protein Total Protein Albumin Triglycerides Lipase Arterial Blood Glucose 181 H Arterial Blood Ionized Calcium Urine WBC (Auto) Coronavirus (PCR) SARS-CoV-2 IgG Ab Crossmatch 07/12/20 07/12/20 07/12/20 11:33 17:45 23:59 WBC RBC Hgb Hct MCV MCH MCHC RDW Lymph % (Auto) [place] % (Auto) Lymph # (Auto) [place] # (Auto) Baso # (Auto) Seg Neutrophils % Seg Neuts % (Manual) Lymphocytes % (Manual) Nucleated RBC % Seg Neutrophils # Seg Neutrophils # Man Lymphocytes # (Manual) Monocytes # (Manual) Eosinophils # (Manual) PT INR APTT D-Dimer Heparin Anti-Xa Level ABG pH POC ABG pCO2 POC ABG pO2 ABG pO2 ABG HCO3 ABG O2 Saturation ABG Base Excess ABG Hemoglobin ABG Oxyhemoglobin ABG Sodium ABG Potassium ABG Chloride ABG Glucose Oxyhemoglobin Carboxyhemoglobin Sodium Potassium Chloride Carbon Dioxide BUN Creatinine Glucose POC Glucose 151 H 211 H 169 H Lactic Acid Calcium Magnesium Ferritin Total Bilirubin Direct Bilirubin AST ALT Alkaline Phosphatase Lactate Dehydrogenase C-Reactive Protein Total Protein Albumin Triglycerides Lipase Arterial Blood Glucose Arterial Blood Ionized Calcium Urine WBC (Auto) Coronavirus (PCR) SARS-CoV-2 IgG Ab Crossmatch 07/13/20 07/13/20 07/13/20 05:44 08:31 08:31 WBC 21.3 H RBC 2.92 L Hgb 9.7 L Hct 28.7 L MCV 98 H MCH 33 H MCHC RDW 16.8 H Lymph % (Auto) [place] % (Auto) Lymph # (Auto) [place] # (Auto) Baso # (Auto) Seg Neutrophils % Seg Neuts % (Manual) 96.0 H Lymphocytes % (Manual) 2.0 L Nucleated RBC % Seg Neutrophils # Seg Neutrophils # Man 20.4 H Lymphocytes # (Manual) 0.4 L Monocytes # (Manual) Eosinophils # (Manual) PT INR APTT D-Dimer Heparin Anti-Xa Level ABG pH POC ABG pCO2 POC ABG pO2 ABG pO2 ABG HCO3 ABG O2 Saturation ABG Base Excess ABG Hemoglobin ABG Oxyhemoglobin ABG Sodium ABG Potassium ABG Chloride ABG Glucose Oxyhemoglobin Carboxyhemoglobin Sodium Potassium 2.9 L* D Chloride 94.4 L Carbon Dioxide 37 H BUN Creatinine 0.2 L Glucose 166 H POC Glucose 122 H Lactic Acid Calcium Magnesium Ferritin Total Bilirubin Direct Bilirubin AST ALT Alkaline Phosphatase Lactate Dehydrogenase C-Reactive Protein Total Protein Albumin Triglycerides Lipase Arterial Blood Glucose Arterial Blood Ionized Calcium Urine WBC (Auto) Coronavirus (PCR) SARS-CoV-2 IgG Ab Crossmatch 07/13/20 07/13/20 07/13/20 11:54 13:52 17:40 WBC RBC Hgb Hct MCV MCH MCHC RDW Lymph % (Auto) [place] % (Auto) Lymph # (Auto) [place] # (Auto) Baso # (Auto) Seg Neutrophils % Seg Neuts % (Manual) Lymphocytes % (Manual) Nucleated RBC % Seg Neutrophils # Seg Neutrophils # Man Lymphocytes # (Manual) Monocytes # (Manual) Eosinophils # (Manual) PT INR APTT D-Dimer Heparin Anti-Xa Level ABG pH 7.477 H POC ABG pCO2 54.4 H POC ABG pO2 126.8 H ABG pO2 ABG HCO3 ABG O2 Saturation ABG Base Excess ABG Hemoglobin 11.5 L ABG Oxyhemoglobin ABG Sodium ABG Potassium 3.2 L ABG Chloride 92.0 L ABG Glucose 169 H Oxyhemoglobin Carboxyhemoglobin Sodium Potassium Chloride Carbon Dioxide BUN Creatinine Glucose POC Glucose 132 H 128 H Lactic Acid Calcium Magnesium Ferritin Total Bilirubin Direct Bilirubin AST ALT Alkaline Phosphatase Lactate Dehydrogenase C-Reactive Protein Total Protein Albumin Triglycerides Lipase Arterial Blood Glucose 169 H Arterial Blood Ionized Calcium Urine WBC (Auto) Coronavirus (PCR) SARS-CoV-2 IgG Ab Crossmatch 07/14/20 07/14/20 07/15/20 07:49 17:09 05:27 WBC RBC Hgb Hct MCV MCH MCHC RDW Lymph % (Auto) [place] % (Auto) Lymph # (Auto) [place] # (Auto) Baso # (Auto) Seg Neutrophils % Seg Neuts % (Manual) Lymphocytes % (Manual) Nucleated RBC % Seg Neutrophils # Seg Neutrophils # Man Lymphocytes # (Manual) Monocytes # (Manual) Eosinophils # (Manual) PT INR APTT D-Dimer Heparin Anti-Xa Level ABG pH POC ABG pCO2 POC ABG pO2 ABG pO2 ABG HCO3 ABG O2 Saturation ABG Base Excess ABG Hemoglobin ABG Oxyhemoglobin ABG Sodium ABG Potassium ABG Chloride ABG Glucose Oxyhemoglobin Carboxyhemoglobin Sodium Potassium 2.7 L* Chloride 94.0 L Carbon Dioxide 37 H BUN Creatinine 0.3 L Glucose 110 H POC Glucose 152 H 61 L Lactic Acid Calcium Magnesium Ferritin Total Bilirubin Direct Bilirubin AST ALT Alkaline Phosphatase Lactate Dehydrogenase C-Reactive Protein Total Protein Albumin Triglycerides Lipase Arterial Blood Glucose Arterial Blood Ionized Calcium Urine WBC (Auto) Coronavirus (PCR) SARS-CoV-2 IgG Ab Crossmatch 07/15/20 07/15/20 07/15/20 05:31 11:49 17:18 WBC RBC Hgb Hct MCV MCH MCHC RDW Lymph % (Auto) [place] % (Auto) Lymph # (Auto) [place] # (Auto) Baso # (Auto) Seg Neutrophils % Seg Neuts % (Manual) Lymphocytes % (Manual) Nucleated RBC % Seg Neutrophils # Seg Neutrophils # Man Lymphocytes # (Manual) Monocytes # (Manual) Eosinophils # (Manual) PT INR APTT D-Dimer Heparin Anti-Xa Level ABG pH POC ABG pCO2 POC ABG pO2 ABG pO2 ABG HCO3 ABG O2 Saturation ABG Base Excess ABG Hemoglobin ABG Oxyhemoglobin ABG Sodium ABG Potassium ABG Chloride ABG Glucose Oxyhemoglobin Carboxyhemoglobin Sodium Potassium 3.2 L Chloride 91.2 L Carbon Dioxide 33 H BUN Creatinine 0.3 L Glucose 139 H POC Glucose 148 H 196 H Lactic Acid Calcium Magnesium Ferritin Total Bilirubin Direct Bilirubin AST ALT Alkaline Phosphatase Lactate Dehydrogenase C-Reactive Protein Total Protein Albumin Triglycerides Lipase Arterial Blood Glucose Arterial Blood Ionized Calcium Urine WBC (Auto) Coronavirus (PCR) SARS-CoV-2 IgG Ab Crossmatch 07/15/20 07/16/20 07/16/20 23:08 05:18 05:19 WBC 11.3 H RBC 3.10 L Hgb 10.0 L Hct 30.3 L MCV 98 H MCH MCHC RDW 16.3 H Lymph % (Auto) [place] % (Auto) Lymph # (Auto) [place] # (Auto) Baso # (Auto) Seg Neutrophils % Seg Neuts % (Manual) Lymphocytes % (Manual) Nucleated RBC % Seg Neutrophils # Seg Neutrophils # Man Lymphocytes # (Manual) Monocytes # (Manual) Eosinophils # (Manual) PT INR APTT D-Dimer Heparin Anti-Xa Level ABG pH POC ABG pCO2 POC ABG pO2 ABG pO2 ABG HCO3 ABG O2 Saturation ABG Base Excess ABG Hemoglobin ABG Oxyhemoglobin ABG Sodium ABG Potassium ABG Chloride ABG Glucose Oxyhemoglobin Carboxyhemoglobin Sodium Potassium Chloride Carbon Dioxide BUN Creatinine Glucose POC Glucose 131 H 160 H Lactic Acid Calcium Magnesium Ferritin Total Bilirubin Direct Bilirubin AST ALT Alkaline Phosphatase Lactate Dehydrogenase C-Reactive Protein Total Protein Albumin Triglycerides Lipase Arterial Blood Glucose Arterial Blood Ionized Calcium Urine WBC (Auto) Coronavirus (PCR) SARS-CoV-2 IgG Ab Crossmatch 07/16/20 07/16/20 07/16/20 05:19 11:45 17:17 WBC RBC Hgb Hct MCV MCH MCHC RDW Lymph % (Auto) [place] % (Auto) Lymph # (Auto) [place] # (Auto) Baso # (Auto) Seg Neutrophils % Seg Neuts % (Manual) Lymphocytes % (Manual) Nucleated RBC % Seg Neutrophils # Seg Neutrophils # Man Lymphocytes # (Manual) Monocytes # (Manual) Eosinophils # (Manual) PT INR APTT D-Dimer Heparin Anti-Xa Level ABG pH POC ABG pCO2 POC ABG pO2 ABG pO2 ABG HCO3 ABG O2 Saturation ABG Base Excess ABG Hemoglobin ABG Oxyhemoglobin ABG Sodium ABG Potassium ABG Chloride ABG Glucose Oxyhemoglobin Carboxyhemoglobin Sodium 132 L Potassium 3.4 L Chloride 89.9 L Carbon Dioxide 39 H BUN Creatinine 0.3 L Glucose 174 H POC Glucose 169 H 143 H Lactic Acid Calcium Magnesium Ferritin Total Bilirubin Direct Bilirubin AST ALT Alkaline Phosphatase Lactate Dehydrogenase C-Reactive Protein Total Protein Albumin Triglycerides Lipase Arterial Blood Glucose Arterial Blood Ionized Calcium Urine WBC (Auto) Coronavirus (PCR) SARS-CoV-2 IgG Ab Crossmatch 07/16/20 07/17/20 07/17/20 23:54 05:32 11:26 WBC RBC Hgb Hct MCV MCH MCHC RDW Lymph % (Auto) [place] % (Auto) Lymph # (Auto) [place] # (Auto) Baso # (Auto) Seg Neutrophils % Seg Neuts % (Manual) Lymphocytes % (Manual) Nucleated RBC % Seg Neutrophils # Seg Neutrophils # Man Lymphocytes # (Manual) Monocytes # (Manual) Eosinophils # (Manual) PT INR APTT D-Dimer Heparin Anti-Xa Level ABG pH POC ABG pCO2 POC ABG pO2 ABG pO2 ABG HCO3 ABG O2 Saturation ABG Base Excess ABG Hemoglobin ABG Oxyhemoglobin ABG Sodium ABG Potassium ABG Chloride ABG Glucose Oxyhemoglobin Carboxyhemoglobin Sodium Potassium Chloride Carbon Dioxide BUN Creatinine Glucose POC Glucose 147 H 149 H 211 H Lactic Acid Calcium Magnesium Ferritin Total Bilirubin Direct Bilirubin AST ALT Alkaline Phosphatase Lactate Dehydrogenase C-Reactive Protein Total Protein Albumin Triglycerides Lipase Arterial Blood Glucose Arterial Blood Ionized Calcium Urine WBC (Auto) Coronavirus (PCR) SARS-CoV-2 IgG Ab Crossmatch 07/17/20 07/17/20 07/18/20 18:16 23:12 06:15 WBC RBC Hgb Hct MCV MCH MCHC RDW Lymph % (Auto) [place] % (Auto) Lymph # (Auto) [place] # (Auto) Baso # (Auto) Seg Neutrophils % Seg Neuts % (Manual) Lymphocytes % (Manual) Nucleated RBC % Seg Neutrophils # Seg Neutrophils # Man Lymphocytes # (Manual) Monocytes # (Manual) Eosinophils # (Manual) PT INR APTT D-Dimer Heparin Anti-Xa Level ABG pH POC ABG pCO2 POC ABG pO2 ABG pO2 ABG HCO3 ABG O2 Saturation ABG Base Excess ABG Hemoglobin ABG Oxyhemoglobin ABG Sodium ABG Potassium ABG Chloride ABG Glucose Oxyhemoglobin Carboxyhemoglobin Sodium Potassium Chloride Carbon Dioxide BUN Creatinine Glucose POC Glucose 161 H 136 H 108 H Lactic Acid Calcium Magnesium Ferritin Total Bilirubin Direct Bilirubin AST ALT Alkaline Phosphatase Lactate Dehydrogenase C-Reactive Protein Total Protein Albumin Triglycerides Lipase Arterial Blood Glucose Arterial Blood Ionized Calcium Urine WBC (Auto) Coronavirus (PCR) SARS-CoV-2 IgG Ab Crossmatch 07/18/20 07/18/20 07/18/20 08:47 08:47 11:50 WBC 17.7 H RBC 3.29 L Hgb 10.5 L Hct 31.8 L MCV 97 H MCH MCHC RDW 16.9 H Lymph % (Auto) [place] % (Auto) 8.6 H Lymph # (Auto) [place] # (Auto) 1.5 H Baso # (Auto) Seg Neutrophils % 74.6 H Seg Neuts % (Manual) Lymphocytes % (Manual) Nucleated RBC % Seg Neutrophils # 13.2 H Seg Neutrophils # Man Lymphocytes # (Manual) Monocytes # (Manual) Eosinophils # (Manual) PT INR APTT D-Dimer Heparin Anti-Xa Level ABG pH POC ABG pCO2 POC ABG pO2 ABG pO2 ABG HCO3 ABG O2 Saturation ABG Base Excess ABG Hemoglobin ABG Oxyhemoglobin ABG Sodium ABG Potassium ABG Chloride ABG Glucose Oxyhemoglobin Carboxyhemoglobin Sodium Potassium 2.8 L* Chloride 92.6 L Carbon Dioxide 40 H BUN Creatinine 0.3 L Glucose 177 H POC Glucose 178 H Lactic Acid Calcium Magnesium Ferritin Total Bilirubin Direct Bilirubin AST ALT Alkaline Phosphatase Lactate Dehydrogenase C-Reactive Protein Total Protein Albumin Triglycerides Lipase Arterial Blood Glucose Arterial Blood Ionized Calcium Urine WBC (Auto) Coronavirus (PCR) SARS-CoV-2 IgG Ab Crossmatch 07/18/20 07/18/20 07/19/20 17:18 23:33 05:22 WBC RBC Hgb Hct MCV MCH MCHC RDW Lymph % (Auto) [place] % (Auto) Lymph # (Auto) [place] # (Auto) Baso # (Auto) Seg Neutrophils % Seg Neuts % (Manual) Lymphocytes % (Manual) Nucleated RBC % Seg Neutrophils # Seg Neutrophils # Man Lymphocytes # (Manual) Monocytes # (Manual) Eosinophils # (Manual) PT INR APTT D-Dimer Heparin Anti-Xa Level ABG pH POC ABG pCO2 POC ABG pO2 ABG pO2 ABG HCO3 ABG O2 Saturation ABG Base Excess ABG Hemoglobin ABG Oxyhemoglobin ABG Sodium ABG Potassium ABG Chloride ABG Glucose Oxyhemoglobin Carboxyhemoglobin Sodium Potassium Chloride Carbon Dioxide BUN Creatinine Glucose POC Glucose 171 H 162 H 166 H Lactic Acid Calcium Magnesium Ferritin Total Bilirubin Direct Bilirubin AST ALT Alkaline Phosphatase Lactate Dehydrogenase C-Reactive Protein Total Protein Albumin Triglycerides Lipase Arterial Blood Glucose Arterial Blood Ionized Calcium Urine WBC (Auto) Coronavirus (PCR) SARS-CoV-2 IgG Ab Crossmatch 07/19/20 07/19/20 07/19/20 12:00 16:27 23:41 WBC RBC Hgb Hct MCV MCH MCHC RDW Lymph % (Auto) [place] % (Auto) Lymph # (Auto) [place] # (Auto) Baso # (Auto) Seg Neutrophils % Seg Neuts % (Manual) Lymphocytes % (Manual) Nucleated RBC % Seg Neutrophils # Seg Neutrophils # Man Lymphocytes # (Manual) Monocytes # (Manual) Eosinophils # (Manual) PT INR APTT D-Dimer Heparin Anti-Xa Level ABG pH POC ABG pCO2 POC ABG pO2 ABG pO2 ABG HCO3 ABG O2 Saturation ABG Base Excess ABG Hemoglobin ABG Oxyhemoglobin ABG Sodium ABG Potassium ABG Chloride ABG Glucose Oxyhemoglobin Carboxyhemoglobin Sodium Potassium Chloride Carbon Dioxide BUN Creatinine Glucose POC Glucose 201 H 205 H 106 H Lactic Acid Calcium Magnesium Ferritin Total Bilirubin Direct Bilirubin AST ALT Alkaline Phosphatase Lactate Dehydrogenase C-Reactive Protein Total Protein Albumin Triglycerides Lipase Arterial Blood Glucose Arterial Blood Ionized Calcium Urine WBC (Auto) Coronavirus (PCR) SARS-CoV-2 IgG Ab Crossmatch 07/20/20 07/20/20 07/20/20 05:28 11:18 17:30 WBC RBC Hgb Hct MCV MCH MCHC RDW Lymph % (Auto) [place] % (Auto) Lymph # (Auto) [place] # (Auto) Baso # (Auto) Seg Neutrophils % Seg Neuts % (Manual) Lymphocytes % (Manual) Nucleated RBC % Seg Neutrophils # Seg Neutrophils # Man Lymphocytes # (Manual) Monocytes # (Manual) Eosinophils # (Manual) PT INR APTT D-Dimer Heparin Anti-Xa Level ABG pH POC ABG pCO2 POC ABG pO2 ABG pO2 ABG HCO3 ABG O2 Saturation ABG Base Excess ABG Hemoglobin ABG Oxyhemoglobin ABG Sodium ABG Potassium ABG Chloride ABG Glucose Oxyhemoglobin Carboxyhemoglobin Sodium Potassium Chloride Carbon Dioxide BUN Creatinine Glucose POC Glucose 130 H 195 H 141 H Lactic Acid Calcium Magnesium Ferritin Total Bilirubin Direct Bilirubin AST ALT Alkaline Phosphatase Lactate Dehydrogenase C-Reactive Protein Total Protein Albumin Triglycerides Lipase Arterial Blood Glucose Arterial Blood Ionized Calcium Urine WBC (Auto) Coronavirus (PCR) SARS-CoV-2 IgG Ab Crossmatch 07/20/20 07/21/20 07/21/20 23:26 05:03 17:03 WBC RBC Hgb Hct MCV MCH MCHC RDW Lymph % (Auto) [place] % (Auto) Lymph # (Auto) [place] # (Auto) Baso # (Auto) Seg Neutrophils % Seg Neuts % (Manual) Lymphocytes % (Manual) Nucleated RBC % Seg Neutrophils # Seg Neutrophils # Man Lymphocytes # (Manual) Monocytes # (Manual) Eosinophils # (Manual) PT INR APTT D-Dimer Heparin Anti-Xa Level ABG pH POC ABG pCO2 POC ABG pO2 ABG pO2 ABG HCO3 ABG O2 Saturation ABG Base Excess ABG Hemoglobin ABG Oxyhemoglobin ABG Sodium ABG Potassium ABG Chloride ABG Glucose Oxyhemoglobin Carboxyhemoglobin Sodium Potassium Chloride Carbon Dioxide BUN Creatinine Glucose POC Glucose 116 H 142 H 181 H Lactic Acid Calcium Magnesium Ferritin Total Bilirubin Direct Bilirubin AST ALT Alkaline Phosphatase Lactate Dehydrogenase C-Reactive Protein Total Protein Albumin Triglycerides Lipase Arterial Blood Glucose Arterial Blood Ionized Calcium Urine WBC (Auto) Coronavirus (PCR) SARS-CoV-2 IgG Ab Crossmatch 07/21/20 07/22/20 07/22/20 23:51 06:09 11:40 WBC RBC Hgb Hct MCV MCH MCHC RDW Lymph % (Auto) [place] % (Auto) Lymph # (Auto) [place] # (Auto) Baso # (Auto) Seg Neutrophils % Seg Neuts % (Manual) Lymphocytes % (Manual) Nucleated RBC % Seg Neutrophils # Seg Neutrophils # Man Lymphocytes # (Manual) Monocytes # (Manual) Eosinophils # (Manual) PT INR APTT D-Dimer Heparin Anti-Xa Level ABG pH POC ABG pCO2 POC ABG pO2 ABG pO2 ABG HCO3 ABG O2 Saturation ABG Base Excess ABG Hemoglobin ABG Oxyhemoglobin ABG Sodium ABG Potassium ABG Chloride ABG Glucose Oxyhemoglobin Carboxyhemoglobin Sodium Potassium Chloride Carbon Dioxide BUN Creatinine Glucose POC Glucose 127 H 136 H 160 H Lactic Acid Calcium Magnesium Ferritin Total Bilirubin Direct Bilirubin AST ALT Alkaline Phosphatase Lactate Dehydrogenase C-Reactive Protein Total Protein Albumin Triglycerides Lipase Arterial Blood Glucose Arterial Blood Ionized Calcium Urine WBC (Auto) Coronavirus (PCR) SARS-CoV-2 IgG Ab Crossmatch 07/22/20 07/22/20 07/23/20 18:14 23:25 05:58 WBC 12.2 H RBC 3.44 L Hgb 10.9 L Hct 33.9 L MCV 99 H MCH MCHC RDW 16.9 H Lymph % (Auto) [place] % (Auto) 10.0 H Lymph # (Auto) [place] # (Auto) 1.2 H Baso # (Auto) Seg Neutrophils % Seg Neuts % (Manual) Lymphocytes % (Manual) Nucleated RBC % Seg Neutrophils # 8.3 H Seg Neutrophils # Man Lymphocytes # (Manual) Monocytes # (Manual) Eosinophils # (Manual) PT INR APTT D-Dimer Heparin Anti-Xa Level ABG pH POC ABG pCO2 POC ABG pO2 ABG pO2 ABG HCO3 ABG O2 Saturation ABG Base Excess ABG Hemoglobin ABG Oxyhemoglobin ABG Sodium ABG Potassium ABG Chloride ABG Glucose Oxyhemoglobin Carboxyhemoglobin Sodium Potassium Chloride Carbon Dioxide BUN Creatinine Glucose POC Glucose 189 H 164 H Lactic Acid Calcium Magnesium Ferritin Total Bilirubin Direct Bilirubin AST ALT Alkaline Phosphatase Lactate Dehydrogenase C-Reactive Protein Total Protein Albumin Triglycerides Lipase Arterial Blood Glucose Arterial Blood Ionized Calcium Urine WBC (Auto) Coronavirus (PCR) SARS-CoV-2 IgG Ab Crossmatch 07/23/20 07/23/20 07/23/20 05:58 06:02 12:14 WBC RBC Hgb Hct MCV MCH MCHC RDW Lymph % (Auto) [place] % (Auto) Lymph # (Auto) [place] # (Auto) Baso # (Auto) Seg Neutrophils % Seg Neuts % (Manual) Lymphocytes % (Manual) Nucleated RBC % Seg Neutrophils # Seg Neutrophils # Man Lymphocytes # (Manual) Monocytes # (Manual) Eosinophils # (Manual) PT INR APTT D-Dimer Heparin Anti-Xa Level ABG pH POC ABG pCO2 POC ABG pO2 ABG pO2 ABG HCO3 ABG O2 Saturation ABG Base Excess ABG Hemoglobin ABG Oxyhemoglobin ABG Sodium ABG Potassium ABG Chloride ABG Glucose Oxyhemoglobin Carboxyhemoglobin Sodium Potassium 2.9 L* Chloride 94.9 L Carbon Dioxide 33 H D BUN Creatinine 0.4 L Glucose 129 H POC Glucose 111 H 142 H Lactic Acid Calcium Magnesium Ferritin Total Bilirubin Direct Bilirubin AST ALT Alkaline Phosphatase Lactate Dehydrogenase C-Reactive Protein Total Protein Albumin 3.5 L Triglycerides Lipase Arterial Blood Glucose Arterial Blood Ionized Calcium Urine WBC (Auto) Coronavirus (PCR) SARS-CoV-2 IgG Ab Crossmatch 07/23/20 07/23/20 07/24/20 17:20 23:39 05:05 WBC 13.3 H RBC 3.40 L Hgb 10.8 L Hct 33.4 L MCV 98 H MCH MCHC RDW 16.7 H Lymph % (Auto) [place] % (Auto) 10.0 H Lymph # (Auto) [place] # (Auto) 1.3 H Baso # (Auto) Seg Neutrophils % Seg Neuts % (Manual) Lymphocytes % (Manual) Nucleated RBC % Seg Neutrophils # 9.0 H Seg Neutrophils # Man Lymphocytes # (Manual) Monocytes # (Manual) Eosinophils # (Manual) PT INR APTT D-Dimer Heparin Anti-Xa Level ABG pH POC ABG pCO2 POC ABG pO2 ABG pO2 ABG HCO3 ABG O2 Saturation ABG Base Excess ABG Hemoglobin ABG Oxyhemoglobin ABG Sodium ABG Potassium ABG Chloride ABG Glucose Oxyhemoglobin Carboxyhemoglobin Sodium Potassium Chloride Carbon Dioxide BUN Creatinine Glucose POC Glucose 150 H 120 H Lactic Acid Calcium Magnesium Ferritin Total Bilirubin Direct Bilirubin AST ALT Alkaline Phosphatase Lactate Dehydrogenase C-Reactive Protein Total Protein Albumin Triglycerides Lipase Arterial Blood Glucose Arterial Blood Ionized Calcium Urine WBC (Auto) Coronavirus (PCR) SARS-CoV-2 IgG Ab Crossmatch 07/24/20 07/24/20 07/24/20 05:05 05:39 11:30 WBC RBC Hgb Hct MCV MCH MCHC RDW Lymph % (Auto) [place] % (Auto) Lymph # (Auto) [place] # (Auto) Baso # (Auto) Seg Neutrophils % Seg Neuts % (Manual) Lymphocytes % (Manual) Nucleated RBC % Seg Neutrophils # Seg Neutrophils # Man Lymphocytes # (Manual) Monocytes # (Manual) Eosinophils # (Manual) PT INR APTT D-Dimer Heparin Anti-Xa Level ABG pH POC ABG pCO2 POC ABG pO2 ABG pO2 ABG HCO3 ABG O2 Saturation ABG Base Excess ABG Hemoglobin ABG Oxyhemoglobin ABG Sodium ABG Potassium ABG Chloride ABG Glucose Oxyhemoglobin Carboxyhemoglobin Sodium Potassium Chloride 97.4 L Carbon Dioxide BUN Creatinine 0.3 L Glucose 111 H POC Glucose 118 H 160 H Lactic Acid Calcium Magnesium Ferritin Total Bilirubin Direct Bilirubin AST ALT Alkaline Phosphatase Lactate Dehydrogenase C-Reactive Protein Total Protein Albumin Triglycerides Lipase Arterial Blood Glucose Arterial Blood Ionized Calcium Urine WBC (Auto) Coronavirus (PCR) SARS-CoV-2 IgG Ab Crossmatch 07/24/20 07/24/20 07/25/20 16:45 23:43 05:00 WBC RBC Hgb Hct MCV MCH MCHC RDW Lymph % (Auto) [place] % (Auto) Lymph # (Auto) [place] # (Auto) Baso # (Auto) Seg Neutrophils % Seg Neuts % (Manual) Lymphocytes % (Manual) Nucleated RBC % Seg Neutrophils # Seg Neutrophils # Man Lymphocytes # (Manual) Monocytes # (Manual) Eosinophils # (Manual) PT INR APTT D-Dimer Heparin Anti-Xa Level ABG pH POC ABG pCO2 POC ABG pO2 ABG pO2 ABG HCO3 ABG O2 Saturation ABG Base Excess ABG Hemoglobin ABG Oxyhemoglobin ABG Sodium ABG Potassium ABG Chloride ABG Glucose Oxyhemoglobin Carboxyhemoglobin Sodium Potassium Chloride Carbon Dioxide BUN Creatinine Glucose POC Glucose 181 H 122 H 114 H Lactic Acid Calcium Magnesium Ferritin Total Bilirubin Direct Bilirubin AST ALT Alkaline Phosphatase Lactate Dehydrogenase C-Reactive Protein Total Protein Albumin Triglycerides Lipase Arterial Blood Glucose Arterial Blood Ionized Calcium Urine WBC (Auto) Coronavirus (PCR) SARS-CoV-2 IgG Ab Crossmatch 07/25/20 07/25/20 07/25/20 11:44 16:44 23:41 WBC RBC Hgb Hct MCV MCH MCHC RDW Lymph % (Auto) [place] % (Auto) Lymph # (Auto) [place] # (Auto) Baso # (Auto) Seg Neutrophils % Seg Neuts % (Manual) Lymphocytes % (Manual) Nucleated RBC % Seg Neutrophils # Seg Neutrophils # Man Lymphocytes # (Manual) Monocytes # (Manual) Eosinophils # (Manual) PT INR APTT D-Dimer Heparin Anti-Xa Level ABG pH POC ABG pCO2 POC ABG pO2 ABG pO2 ABG HCO3 ABG O2 Saturation ABG Base Excess ABG Hemoglobin ABG Oxyhemoglobin ABG Sodium ABG Potassium ABG Chloride ABG Glucose Oxyhemoglobin Carboxyhemoglobin Sodium Potassium Chloride Carbon Dioxide BUN Creatinine Glucose POC Glucose 298 H 166 H 133 H Lactic Acid Calcium Magnesium Ferritin Total Bilirubin Direct Bilirubin AST ALT Alkaline Phosphatase Lactate Dehydrogenase C-Reactive Protein Total Protein Albumin Triglycerides Lipase Arterial Blood Glucose Arterial Blood Ionized Calcium Urine WBC (Auto) Coronavirus (PCR) SARS-CoV-2 IgG Ab Crossmatch 07/26/20 07/26/20 07/26/20 05:17 11:17 18:07 WBC RBC Hgb Hct MCV MCH MCHC RDW Lymph % (Auto) [place] % (Auto) Lymph # (Auto) [place] # (Auto) Baso # (Auto) Seg Neutrophils % Seg Neuts % (Manual) Lymphocytes % (Manual) Nucleated RBC % Seg Neutrophils # Seg Neutrophils # Man Lymphocytes # (Manual) Monocytes # (Manual) Eosinophils # (Manual) PT INR APTT D-Dimer Heparin Anti-Xa Level ABG pH POC ABG pCO2 POC ABG pO2 ABG pO2 ABG HCO3 ABG O2 Saturation ABG Base Excess ABG Hemoglobin ABG Oxyhemoglobin ABG Sodium ABG Potassium ABG Chloride ABG Glucose Oxyhemoglobin Carboxyhemoglobin Sodium Potassium Chloride Carbon Dioxide BUN Creatinine Glucose POC Glucose 113 H 157 H 154 H Lactic Acid Calcium Magnesium Ferritin Total Bilirubin Direct Bilirubin AST ALT Alkaline Phosphatase Lactate Dehydrogenase C-Reactive Protein Total Protein Albumin Triglycerides Lipase Arterial Blood Glucose Arterial Blood Ionized Calcium Urine WBC (Auto) Coronavirus (PCR) SARS-CoV-2 IgG Ab Crossmatch 07/26/20 07/27/20 07/27/20 23:44 08:26 08:26 WBC RBC 3.63 L Hgb Hct MCV 98 H MCH MCHC RDW 17.5 H Lymph % (Auto) [place] % (Auto) 10.6 H Lymph # (Auto) [place] # (Auto) 1.1 H Baso # (Auto) Seg Neutrophils % Seg Neuts % (Manual) Lymphocytes % (Manual) Nucleated RBC % Seg Neutrophils # Seg Neutrophils # Man Lymphocytes # (Manual) Monocytes # (Manual) Eosinophils # (Manual) PT INR APTT D-Dimer Heparin Anti-Xa Level ABG pH POC ABG pCO2 POC ABG pO2 ABG pO2 ABG HCO3 ABG O2 Saturation ABG Base Excess ABG Hemoglobin ABG Oxyhemoglobin ABG Sodium ABG Potassium ABG Chloride ABG Glucose Oxyhemoglobin Carboxyhemoglobin Sodium Potassium Chloride 97.9 L Carbon Dioxide 37 H D BUN Creatinine 0.4 L Glucose 115 H POC Glucose 148 H Lactic Acid Calcium Magnesium Ferritin Total Bilirubin Direct Bilirubin AST ALT Alkaline Phosphatase Lactate Dehydrogenase C-Reactive Protein Total Protein Albumin Triglycerides Lipase Arterial Blood Glucose Arterial Blood Ionized Calcium Urine WBC (Auto) Coronavirus (PCR) SARS-CoV-2 IgG Ab Crossmatch 07/27/20 07/27/20 07/27/20 11:41 16:50 23:22 WBC RBC Hgb Hct MCV MCH MCHC RDW Lymph % (Auto) [place] % (Auto) Lymph # (Auto) [place] # (Auto) Baso # (Auto) Seg Neutrophils % Seg Neuts % (Manual) Lymphocytes % (Manual) Nucleated RBC % Seg Neutrophils # Seg Neutrophils # Man Lymphocytes # (Manual) Monocytes # (Manual) Eosinophils # (Manual) PT INR APTT D-Dimer Heparin Anti-Xa Level ABG pH POC ABG pCO2 POC ABG pO2 ABG pO2 ABG HCO3 ABG O2 Saturation ABG Base Excess ABG Hemoglobin ABG Oxyhemoglobin ABG Sodium ABG Potassium ABG Chloride ABG Glucose Oxyhemoglobin Carboxyhemoglobin Sodium Potassium Chloride Carbon Dioxide BUN Creatinine Glucose POC Glucose 169 H 132 H 120 H Lactic Acid Calcium Magnesium Ferritin Total Bilirubin Direct Bilirubin AST ALT Alkaline Phosphatase Lactate Dehydrogenase C-Reactive Protein Total Protein Albumin Triglycerides Lipase Arterial Blood Glucose Arterial Blood Ionized Calcium Urine WBC (Auto) Coronavirus (PCR) SARS-CoV-2 IgG Ab Crossmatch 07/28/20 07/29/20 07/29/20 17:39 14:14 16:32 WBC RBC Hgb Hct MCV MCH MCHC RDW Lymph % (Auto) [place] % (Auto) Lymph # (Auto) [place] # (Auto) Baso # (Auto) Seg Neutrophils % Seg Neuts % (Manual) Lymphocytes % (Manual) Nucleated RBC % Seg Neutrophils # Seg Neutrophils # Man Lymphocytes # (Manual) Monocytes # (Manual) Eosinophils # (Manual) PT INR APTT D-Dimer Heparin Anti-Xa Level ABG pH POC ABG pCO2 POC ABG pO2 ABG pO2 ABG HCO3 ABG O2 Saturation ABG Base Excess ABG Hemoglobin ABG Oxyhemoglobin ABG Sodium ABG Potassium ABG Chloride ABG Glucose Oxyhemoglobin Carboxyhemoglobin Sodium Potassium Chloride Carbon Dioxide BUN Creatinine Glucose POC Glucose 187 H 188 H 193 H Lactic Acid Calcium Magnesium Ferritin Total Bilirubin Direct Bilirubin AST ALT Alkaline Phosphatase Lactate Dehydrogenase C-Reactive Protein Total Protein Albumin Triglycerides Lipase Arterial Blood Glucose Arterial Blood Ionized Calcium Urine WBC (Auto) Coronavirus (PCR) SARS-CoV-2 IgG Ab Crossmatch 07/30/20 07/30/20 07/30/20 12:03 15:59 23:20 WBC RBC Hgb Hct MCV MCH MCHC RDW Lymph % (Auto) [place] % (Auto) Lymph # (Auto) [place] # (Auto) Baso # (Auto) Seg Neutrophils % Seg Neuts % (Manual) Lymphocytes % (Manual) Nucleated RBC % Seg Neutrophils # Seg Neutrophils # Man Lymphocytes # (Manual) Monocytes # (Manual) Eosinophils # (Manual) PT INR APTT D-Dimer Heparin Anti-Xa Level ABG pH POC ABG pCO2 POC ABG pO2 ABG pO2 ABG HCO3 ABG O2 Saturation ABG Base Excess ABG Hemoglobin ABG Oxyhemoglobin ABG Sodium ABG Potassium ABG Chloride ABG Glucose Oxyhemoglobin Carboxyhemoglobin Sodium Potassium Chloride Carbon Dioxide BUN Creatinine Glucose POC Glucose 133 H 191 H 144 H Lactic Acid Calcium Magnesium Ferritin Total Bilirubin Direct Bilirubin AST ALT Alkaline Phosphatase Lactate Dehydrogenase C-Reactive Protein Total Protein Albumin Triglycerides Lipase Arterial Blood Glucose Arterial Blood Ionized Calcium Urine WBC (Auto) Coronavirus (PCR) SARS-CoV-2 IgG Ab Crossmatch 07/31/20 07/31/20 07/31/20 05:28 12:01 16:43 WBC RBC Hgb Hct MCV MCH MCHC RDW Lymph % (Auto) [place] % (Auto) Lymph # (Auto) [place] # (Auto) Baso # (Auto) Seg Neutrophils % Seg Neuts % (Manual) Lymphocytes % (Manual) Nucleated RBC % Seg Neutrophils # Seg Neutrophils # Man Lymphocytes # (Manual) Monocytes # (Manual) Eosinophils # (Manual) PT INR APTT D-Dimer Heparin Anti-Xa Level ABG pH POC ABG pCO2 POC ABG pO2 ABG pO2 ABG HCO3 ABG O2 Saturation ABG Base Excess ABG Hemoglobin ABG Oxyhemoglobin ABG Sodium ABG Potassium ABG Chloride ABG Glucose Oxyhemoglobin Carboxyhemoglobin Sodium Potassium Chloride Carbon Dioxide BUN Creatinine Glucose POC Glucose 128 H 137 H 170 H Lactic Acid Calcium Magnesium Ferritin Total Bilirubin Direct Bilirubin AST ALT Alkaline Phosphatase Lactate Dehydrogenase C-Reactive Protein Total Protein Albumin Triglycerides Lipase Arterial Blood Glucose Arterial Blood Ionized Calcium Urine WBC (Auto) Coronavirus (PCR) SARS-CoV-2 IgG Ab Crossmatch 07/31/20 08/01/20 08/01/20 20:28 07:44 11:02 WBC RBC Hgb Hct MCV MCH MCHC RDW Lymph % (Auto) [place] % (Auto) Lymph # (Auto) [place] # (Auto) Baso # (Auto) Seg Neutrophils % Seg Neuts % (Manual) Lymphocytes % (Manual) Nucleated RBC % Seg Neutrophils # Seg Neutrophils # Man Lymphocytes # (Manual) Monocytes # (Manual) Eosinophils # (Manual) PT INR APTT D-Dimer Heparin Anti-Xa Level ABG pH POC ABG pCO2 POC ABG pO2 ABG pO2 ABG HCO3 ABG O2 Saturation ABG Base Excess ABG Hemoglobin ABG Oxyhemoglobin ABG Sodium ABG Potassium ABG Chloride ABG Glucose Oxyhemoglobin Carboxyhemoglobin Sodium Potassium Chloride Carbon Dioxide BUN Creatinine Glucose POC Glucose 142 H 111 H 137 H Lactic Acid Calcium Magnesium Ferritin Total Bilirubin Direct Bilirubin AST ALT Alkaline Phosphatase Lactate Dehydrogenase C-Reactive Protein Total Protein Albumin Triglycerides Lipase Arterial Blood Glucose Arterial Blood Ionized Calcium Urine WBC (Auto) Coronavirus (PCR) SARS-CoV-2 IgG Ab Crossmatch 08/01/20 08/01/20 08/02/20 15:46 20:46 05:55 WBC 12.4 H RBC Hgb Hct MCV 99 H MCH MCHC RDW 16.9 H Lymph % (Auto) [place] % (Auto) 9.7 H Lymph # (Auto) [place] # (Auto) 1.2 H Baso # (Auto) Seg Neutrophils % Seg Neuts % (Manual) Lymphocytes % (Manual) Nucleated RBC % Seg Neutrophils # 8.5 H Seg Neutrophils # Man Lymphocytes # (Manual) Monocytes # (Manual) Eosinophils # (Manual) PT INR APTT D-Dimer Heparin Anti-Xa Level ABG pH POC ABG pCO2 POC ABG pO2 ABG pO2 ABG HCO3 ABG O2 Saturation ABG Base Excess ABG Hemoglobin ABG Oxyhemoglobin ABG Sodium ABG Potassium ABG Chloride ABG Glucose Oxyhemoglobin Carboxyhemoglobin Sodium Potassium Chloride Carbon Dioxide BUN Creatinine Glucose POC Glucose 131 H 123 H Lactic Acid Calcium Magnesium Ferritin Total Bilirubin Direct Bilirubin AST ALT Alkaline Phosphatase Lactate Dehydrogenase C-Reactive Protein Total Protein Albumin Triglycerides Lipase Arterial Blood Glucose Arterial Blood Ionized Calcium Urine WBC (Auto) Coronavirus (PCR) SARS-CoV-2 IgG Ab Crossmatch 08/02/20 08/02/20 08/02/20 05:55 08:19 12:24 WBC RBC Hgb Hct MCV MCH MCHC RDW Lymph % (Auto) [place] % (Auto) Lymph # (Auto) [place] # (Auto) Baso # (Auto) Seg Neutrophils % Seg Neuts % (Manual) Lymphocytes % (Manual) Nucleated RBC % Seg Neutrophils # Seg Neutrophils # Man Lymphocytes # (Manual) Monocytes # (Manual) Eosinophils # (Manual) PT INR APTT D-Dimer Heparin Anti-Xa Level ABG pH POC ABG pCO2 POC ABG pO2 ABG pO2 ABG HCO3 ABG O2 Saturation ABG Base Excess ABG Hemoglobin ABG Oxyhemoglobin ABG Sodium ABG Potassium ABG Chloride ABG Glucose Oxyhemoglobin Carboxyhemoglobin Sodium Potassium 2.9 L* Chloride 96.5 L Carbon Dioxide 39 H BUN Creatinine 0.3 L Glucose 105 H POC Glucose 152 H 144 H Lactic Acid Calcium Magnesium Ferritin Total Bilirubin Direct Bilirubin AST ALT 118 H Alkaline Phosphatase Lactate Dehydrogenase C-Reactive Protein Total Protein Albumin 3.3 L Triglycerides Lipase Arterial Blood Glucose Arterial Blood Ionized Calcium Urine WBC (Auto) Coronavirus (PCR) SARS-CoV-2 IgG Ab Crossmatch 08/02/20 08/02/20 08/02/20 13:55 16:23 17:00 WBC RBC Hgb Hct MCV MCH MCHC RDW Lymph % (Auto) [place] % (Auto) Lymph # (Auto) [place] # (Auto) Baso # (Auto) Seg Neutrophils % Seg Neuts % (Manual) Lymphocytes % (Manual) Nucleated RBC % Seg Neutrophils # Seg Neutrophils # Man Lymphocytes # (Manual) Monocytes # (Manual) Eosinophils # (Manual) PT INR APTT D-Dimer Heparin Anti-Xa Level ABG pH POC ABG pCO2 POC ABG pO2 ABG pO2 ABG HCO3 ABG O2 Saturation ABG Base Excess ABG Hemoglobin ABG Oxyhemoglobin ABG Sodium ABG Potassium ABG Chloride ABG Glucose Oxyhemoglobin Carboxyhemoglobin Sodium Potassium 3.0 L Chloride Carbon Dioxide BUN Creatinine Glucose POC Glucose 142 H 193 H Lactic Acid Calcium Magnesium Ferritin Total Bilirubin Direct Bilirubin AST ALT Alkaline Phosphatase Lactate Dehydrogenase C-Reactive Protein Total Protein Albumin Triglycerides Lipase Arterial Blood Glucose Arterial Blood Ionized Calcium Urine WBC (Auto) Coronavirus (PCR) SARS-CoV-2 IgG Ab Crossmatch 08/02/20 08/03/20 08/03/20 21:21 05:18 08:05 WBC RBC Hgb Hct MCV MCH MCHC RDW Lymph % (Auto) [place] % (Auto) Lymph # (Auto) [place] # (Auto) Baso # (Auto) Seg Neutrophils % Seg Neuts % (Manual) Lymphocytes % (Manual) Nucleated RBC % Seg Neutrophils # Seg Neutrophils # Man Lymphocytes # (Manual) Monocytes # (Manual) Eosinophils # (Manual) PT INR APTT D-Dimer Heparin Anti-Xa Level ABG pH POC ABG pCO2 POC ABG pO2 ABG pO2 ABG HCO3 ABG O2 Saturation ABG Base Excess ABG Hemoglobin ABG Oxyhemoglobin ABG Sodium ABG Potassium ABG Chloride ABG Glucose Oxyhemoglobin Carboxyhemoglobin Sodium Potassium Chloride Carbon Dioxide 32 H D BUN Creatinine 0.4 L Glucose POC Glucose 161 H 107 H Lactic Acid Calcium Magnesium Ferritin Total Bilirubin Direct Bilirubin AST ALT Alkaline Phosphatase Lactate Dehydrogenase C-Reactive Protein Total Protein Albumin Triglycerides Lipase Arterial Blood Glucose Arterial Blood Ionized Calcium Urine WBC (Auto) Coronavirus (PCR) SARS-CoV-2 IgG Ab Crossmatch 08/03/20 08/03/20 08/04/20 12:03 20:20 07:46 WBC RBC Hgb Hct MCV MCH MCHC RDW Lymph % (Auto) [place] % (Auto) Lymph # (Auto) [place] # (Auto) Baso # (Auto) Seg Neutrophils % Seg Neuts % (Manual) Lymphocytes % (Manual) Nucleated RBC % Seg Neutrophils # Seg Neutrophils # Man Lymphocytes # (Manual) Monocytes # (Manual) Eosinophils # (Manual) PT INR APTT D-Dimer Heparin Anti-Xa Level ABG pH POC ABG pCO2 POC ABG pO2 ABG pO2 ABG HCO3 ABG O2 Saturation ABG Base Excess ABG Hemoglobin ABG Oxyhemoglobin ABG Sodium ABG Potassium ABG Chloride ABG Glucose Oxyhemoglobin Carboxyhemoglobin Sodium Potassium Chloride Carbon Dioxide BUN Creatinine Glucose POC Glucose 135 H 167 H 109 H Lactic Acid Calcium Magnesium Ferritin Total Bilirubin Direct Bilirubin AST ALT Alkaline Phosphatase Lactate Dehydrogenase C-Reactive Protein Total Protein Albumin Triglycerides Lipase Arterial Blood Glucose Arterial Blood Ionized Calcium Urine WBC (Auto) Coronavirus (PCR) SARS-CoV-2 IgG Ab Crossmatch 08/04/20 08/04/20 08/04/20 11:54 16:48 20:39 WBC RBC Hgb Hct MCV MCH MCHC RDW Lymph % (Auto) [place] % (Auto) Lymph # (Auto) [place] # (Auto) Baso # (Auto) Seg Neutrophils % Seg Neuts % (Manual) Lymphocytes % (Manual) Nucleated RBC % Seg Neutrophils # Seg Neutrophils # Man Lymphocytes # (Manual) Monocytes # (Manual) Eosinophils # (Manual) PT INR APTT D-Dimer Heparin Anti-Xa Level ABG pH POC ABG pCO2 POC ABG pO2 ABG pO2 ABG HCO3 ABG O2 Saturation ABG Base Excess ABG Hemoglobin ABG Oxyhemoglobin ABG Sodium ABG Potassium ABG Chloride ABG Glucose Oxyhemoglobin Carboxyhemoglobin Sodium Potassium Chloride Carbon Dioxide BUN Creatinine Glucose POC Glucose 133 H 150 H 139 H Lactic Acid Calcium Magnesium Ferritin Total Bilirubin Direct Bilirubin AST ALT Alkaline Phosphatase Lactate Dehydrogenase C-Reactive Protein Total Protein Albumin Triglycerides Lipase Arterial Blood Glucose Arterial Blood Ionized Calcium Urine WBC (Auto) Coronavirus (PCR) SARS-CoV-2 IgG Ab Crossmatch 08/05/20 08/05/20 08/05/20 07:45 11:36 16:09 WBC RBC Hgb Hct MCV MCH MCHC RDW Lymph % (Auto) [place] % (Auto) Lymph # (Auto) [place] # (Auto) Baso # (Auto) Seg Neutrophils % Seg Neuts % (Manual) Lymphocytes % (Manual) Nucleated RBC % Seg Neutrophils # Seg Neutrophils # Man Lymphocytes # (Manual) Monocytes # (Manual) Eosinophils # (Manual) PT INR APTT D-Dimer Heparin Anti-Xa Level ABG pH POC ABG pCO2 POC ABG pO2 ABG pO2 ABG HCO3 ABG O2 Saturation ABG Base Excess ABG Hemoglobin ABG Oxyhemoglobin ABG Sodium ABG Potassium ABG Chloride ABG Glucose Oxyhemoglobin Carboxyhemoglobin Sodium Potassium Chloride Carbon Dioxide BUN Creatinine Glucose POC Glucose 115 H 112 H 118 H Lactic Acid Calcium Magnesium Ferritin Total Bilirubin Direct Bilirubin AST ALT Alkaline Phosphatase Lactate Dehydrogenase C-Reactive Protein Total Protein Albumin Triglycerides Lipase Arterial Blood Glucose Arterial Blood Ionized Calcium Urine WBC (Auto) Coronavirus (PCR) SARS-CoV-2 IgG Ab Crossmatch 08/05/20 08/06/20 08/06/20 22:06 11:09 16:51 WBC RBC Hgb Hct MCV MCH MCHC RDW Lymph % (Auto) [place] % (Auto) Lymph # (Auto) [place] # (Auto) Baso # (Auto) Seg Neutrophils % Seg Neuts % (Manual) Lymphocytes % (Manual) Nucleated RBC % Seg Neutrophils # Seg Neutrophils # Man Lymphocytes # (Manual) Monocytes # (Manual) Eosinophils # (Manual) PT INR APTT D-Dimer Heparin Anti-Xa Level ABG pH POC ABG pCO2 POC ABG pO2 ABG pO2 ABG HCO3 ABG O2 Saturation ABG Base Excess ABG Hemoglobin ABG Oxyhemoglobin ABG Sodium ABG Potassium ABG Chloride ABG Glucose Oxyhemoglobin Carboxyhemoglobin Sodium Potassium Chloride Carbon Dioxide BUN Creatinine Glucose POC Glucose 120 H 125 H 135 H Lactic Acid Calcium Magnesium Ferritin Total Bilirubin Direct Bilirubin AST ALT Alkaline Phosphatase Lactate Dehydrogenase C-Reactive Protein Total Protein Albumin Triglycerides Lipase Arterial Blood Glucose Arterial Blood Ionized Calcium Urine WBC (Auto) Coronavirus (PCR) SARS-CoV-2 IgG Ab Crossmatch 08/06/20 08/07/20 08/07/20 20:21 08:15 12:46 WBC RBC Hgb Hct MCV MCH MCHC RDW Lymph % (Auto) [place] % (Auto) Lymph # (Auto) [place] # (Auto) Baso # (Auto) Seg Neutrophils % Seg Neuts % (Manual) Lymphocytes % (Manual) Nucleated RBC % Seg Neutrophils # Seg Neutrophils # Man Lymphocytes # (Manual) Monocytes # (Manual) Eosinophils # (Manual) PT INR APTT D-Dimer Heparin Anti-Xa Level ABG pH POC ABG pCO2 POC ABG pO2 ABG pO2 ABG HCO3 ABG O2 Saturation ABG Base Excess ABG Hemoglobin ABG Oxyhemoglobin ABG Sodium ABG Potassium ABG Chloride ABG Glucose Oxyhemoglobin Carboxyhemoglobin Sodium Potassium Chloride Carbon Dioxide BUN Creatinine Glucose POC Glucose 127 H 120 H 113 H Lactic Acid Calcium Magnesium Ferritin Total Bilirubin Direct Bilirubin AST ALT Alkaline Phosphatase Lactate Dehydrogenase C-Reactive Protein Total Protein Albumin Triglycerides Lipase Arterial Blood Glucose Arterial Blood Ionized Calcium Urine WBC (Auto) Coronavirus (PCR) SARS-CoV-2 IgG Ab Crossmatch 08/07/20 08/07/20 08/08/20 16:38 21:30 07:40 WBC RBC Hgb Hct MCV MCH MCHC RDW Lymph % (Auto) [place] % (Auto) Lymph # (Auto) [place] # (Auto) Baso # (Auto) Seg Neutrophils % Seg Neuts % (Manual) Lymphocytes % (Manual) Nucleated RBC % Seg Neutrophils # Seg Neutrophils # Man Lymphocytes # (Manual) Monocytes # (Manual) Eosinophils # (Manual) PT INR APTT D-Dimer Heparin Anti-Xa Level ABG pH POC ABG pCO2 POC ABG pO2 ABG pO2 ABG HCO3 ABG O2 Saturation ABG Base Excess ABG Hemoglobin ABG Oxyhemoglobin ABG Sodium ABG Potassium ABG Chloride ABG Glucose Oxyhemoglobin Carboxyhemoglobin Sodium Potassium Chloride Carbon Dioxide BUN Creatinine Glucose POC Glucose 119 H 129 H 115 H Lactic Acid Calcium Magnesium Ferritin Total Bilirubin Direct Bilirubin AST ALT Alkaline Phosphatase Lactate Dehydrogenase C-Reactive Protein Total Protein Albumin Triglycerides Lipase Arterial Blood Glucose Arterial Blood Ionized Calcium Urine WBC (Auto) Coronavirus (PCR) SARS-CoV-2 IgG Ab Crossmatch 08/08/20 08/08/20 08/08/20 11:31 16:03 21:17 WBC RBC Hgb Hct MCV MCH MCHC RDW Lymph % (Auto) [place] % (Auto) Lymph # (Auto) [place] # (Auto) Baso # (Auto) Seg Neutrophils % Seg Neuts % (Manual) Lymphocytes % (Manual) Nucleated RBC % Seg Neutrophils # Seg Neutrophils # Man Lymphocytes # (Manual) Monocytes # (Manual) Eosinophils # (Manual) PT INR APTT D-Dimer Heparin Anti-Xa Level ABG pH POC ABG pCO2 POC ABG pO2 ABG pO2 ABG HCO3 ABG O2 Saturation ABG Base Excess ABG Hemoglobin ABG Oxyhemoglobin ABG Sodium ABG Potassium ABG Chloride ABG Glucose Oxyhemoglobin Carboxyhemoglobin Sodium Potassium Chloride Carbon Dioxide BUN Creatinine Glucose POC Glucose 117 H 113 H 132 H Lactic Acid Calcium Magnesium Ferritin Total Bilirubin Direct Bilirubin AST ALT Alkaline Phosphatase Lactate Dehydrogenase C-Reactive Protein Total Protein Albumin Triglycerides Lipase Arterial Blood Glucose Arterial Blood Ionized Calcium Urine WBC (Auto) Coronavirus (PCR) SARS-CoV-2 IgG Ab Crossmatch 08/09/20 08/09/20 08/09/20 11:53 16:53 21:39 WBC RBC Hgb Hct MCV MCH MCHC RDW Lymph % (Auto) [place] % (Auto) Lymph # (Auto) [place] # (Auto) Baso # (Auto) Seg Neutrophils % Seg Neuts % (Manual) Lymphocytes % (Manual) Nucleated RBC % Seg Neutrophils # Seg Neutrophils # Man Lymphocytes # (Manual) Monocytes # (Manual) Eosinophils # (Manual) PT INR APTT D-Dimer Heparin Anti-Xa Level ABG pH POC ABG pCO2 POC ABG pO2 ABG pO2 ABG HCO3 ABG O2 Saturation ABG Base Excess ABG Hemoglobin ABG Oxyhemoglobin ABG Sodium ABG Potassium ABG Chloride ABG Glucose Oxyhemoglobin Carboxyhemoglobin Sodium Potassium Chloride Carbon Dioxide BUN Creatinine Glucose POC Glucose 131 H 153 H 114 H Lactic Acid Calcium Magnesium Ferritin Total Bilirubin Direct Bilirubin AST ALT Alkaline Phosphatase Lactate Dehydrogenase C-Reactive Protein Total Protein Albumin Triglycerides Lipase Arterial Blood Glucose Arterial Blood Ionized Calcium Urine WBC (Auto) Coronavirus (PCR) SARS-CoV-2 IgG Ab Crossmatch 08/10/20 08/10/20 08/10/20 07:58 11:57 16:53 WBC RBC Hgb Hct MCV MCH MCHC RDW Lymph % (Auto) [place] % (Auto) Lymph # (Auto) [place] # (Auto) Baso # (Auto) Seg Neutrophils % Seg Neuts % (Manual) Lymphocytes % (Manual) Nucleated RBC % Seg Neutrophils # Seg Neutrophils # Man Lymphocytes # (Manual) Monocytes # (Manual) Eosinophils # (Manual) PT INR APTT D-Dimer Heparin Anti-Xa Level ABG pH POC ABG pCO2 POC ABG pO2 ABG pO2 ABG HCO3 ABG O2 Saturation ABG Base Excess ABG Hemoglobin ABG Oxyhemoglobin ABG Sodium ABG Potassium ABG Chloride ABG Glucose Oxyhemoglobin Carboxyhemoglobin Sodium Potassium Chloride Carbon Dioxide BUN Creatinine Glucose POC Glucose 106 H 139 H 140 H Lactic Acid Calcium Magnesium Ferritin Total Bilirubin Direct Bilirubin AST ALT Alkaline Phosphatase Lactate Dehydrogenase C-Reactive Protein Total Protein Albumin Triglycerides Lipase Arterial Blood Glucose Arterial Blood Ionized Calcium Urine WBC (Auto) Coronavirus (PCR) SARS-CoV-2 IgG Ab Crossmatch 08/10/20 08/11/20 08/11/20 20:45 12:07 15:58 WBC RBC Hgb Hct MCV MCH MCHC RDW Lymph % (Auto) [place] % (Auto) Lymph # (Auto) [place] # (Auto) Baso # (Auto) Seg Neutrophils % Seg Neuts % (Manual) Lymphocytes % (Manual) Nucleated RBC % Seg Neutrophils # Seg Neutrophils # Man Lymphocytes # (Manual) Monocytes # (Manual) Eosinophils # (Manual) PT INR APTT D-Dimer Heparin Anti-Xa Level ABG pH POC ABG pCO2 POC ABG pO2 ABG pO2 ABG HCO3 ABG O2 Saturation ABG Base Excess ABG Hemoglobin ABG Oxyhemoglobin ABG Sodium ABG Potassium ABG Chloride ABG Glucose Oxyhemoglobin Carboxyhemoglobin Sodium Potassium Chloride Carbon Dioxide BUN Creatinine Glucose POC Glucose 161 H 114 H 133 H Lactic Acid Calcium Magnesium Ferritin Total Bilirubin Direct Bilirubin AST ALT Alkaline Phosphatase Lactate Dehydrogenase C-Reactive Protein Total Protein Albumin Triglycerides Lipase Arterial Blood Glucose Arterial Blood Ionized Calcium Urine WBC (Auto) Coronavirus (PCR) SARS-CoV-2 IgG Ab Crossmatch 08/11/20 08/11/20 08/12/20 18:43 20:45 07:46 WBC RBC Hgb Hct MCV MCH MCHC RDW Lymph % (Auto) [place] % (Auto) Lymph # (Auto) [place] # (Auto) Baso # (Auto) Seg Neutrophils % Seg Neuts % (Manual) Lymphocytes % (Manual) Nucleated RBC % Seg Neutrophils # Seg Neutrophils # Man Lymphocytes # (Manual) Monocytes # (Manual) Eosinophils # (Manual) PT INR APTT D-Dimer Heparin Anti-Xa Level ABG pH POC ABG pCO2 51.0 H POC ABG pO2 ABG pO2 ABG HCO3 ABG O2 Saturation ABG Base Excess ABG Hemoglobin ABG Oxyhemoglobin ABG Sodium ABG Potassium ABG Chloride ABG Glucose 149 H Oxyhemoglobin Carboxyhemoglobin Sodium Potassium Chloride Carbon Dioxide BUN Creatinine Glucose POC Glucose 111 H 112 H Lactic Acid Calcium Magnesium Ferritin Total Bilirubin Direct Bilirubin AST ALT Alkaline Phosphatase Lactate Dehydrogenase C-Reactive Protein Total Protein Albumin Triglycerides Lipase Arterial Blood Glucose 149 H Arterial Blood Ionized Calcium Urine WBC (Auto) Coronavirus (PCR) SARS-CoV-2 IgG Ab Crossmatch 08/12/20 08/12/20 08/13/20 18:34 21:09 16:10 WBC RBC Hgb Hct MCV MCH MCHC RDW Lymph % (Auto) [place] % (Auto) Lymph # (Auto) [place] # (Auto) Baso # (Auto) Seg Neutrophils % Seg Neuts % (Manual) Lymphocytes % (Manual) Nucleated RBC % Seg Neutrophils # Seg Neutrophils # Man Lymphocytes # (Manual) Monocytes # (Manual) Eosinophils # (Manual) PT INR APTT D-Dimer Heparin Anti-Xa Level ABG pH POC ABG pCO2 POC ABG pO2 ABG pO2 ABG HCO3 ABG O2 Saturation ABG Base Excess ABG Hemoglobin ABG Oxyhemoglobin ABG Sodium ABG Potassium ABG Chloride ABG Glucose Oxyhemoglobin Carboxyhemoglobin Sodium Potassium Chloride 97.2 L Carbon Dioxide BUN Creatinine 0.5 L Glucose 132 H POC Glucose 120 H 140 H Lactic Acid Calcium Magnesium Ferritin Total Bilirubin Direct Bilirubin AST ALT Alkaline Phosphatase Lactate Dehydrogenase C-Reactive Protein Total Protein Albumin Triglycerides Lipase Arterial Blood Glucose Arterial Blood Ionized Calcium Urine WBC (Auto) Coronavirus (PCR) SARS-CoV-2 IgG Ab Crossmatch 08/13/20 08/14/20 08/14/20 21:16 11:20 16:14 WBC RBC Hgb Hct MCV MCH MCHC RDW Lymph % (Auto) [place] % (Auto) Lymph # (Auto) [place] # (Auto) Baso # (Auto) Seg Neutrophils % Seg Neuts % (Manual) Lymphocytes % (Manual) Nucleated RBC % Seg Neutrophils # Seg Neutrophils # Man Lymphocytes # (Manual) Monocytes # (Manual) Eosinophils # (Manual) PT INR APTT D-Dimer Heparin Anti-Xa Level ABG pH POC ABG pCO2 POC ABG pO2 ABG pO2 ABG HCO3 ABG O2 Saturation ABG Base Excess ABG Hemoglobin ABG Oxyhemoglobin ABG Sodium ABG Potassium ABG Chloride ABG Glucose Oxyhemoglobin Carboxyhemoglobin Sodium Potassium Chloride Carbon Dioxide BUN Creatinine Glucose POC Glucose 163 H 109 H 118 H Lactic Acid Calcium Magnesium Ferritin Total Bilirubin Direct Bilirubin AST ALT Alkaline Phosphatase Lactate Dehydrogenase C-Reactive Protein Total Protein Albumin Triglycerides Lipase Arterial Blood Glucose Arterial Blood Ionized Calcium Urine WBC (Auto) Coronavirus (PCR) SARS-CoV-2 IgG Ab Crossmatch 08/14/20 08/15/20 08/15/20 20:11 11:58 16:14 WBC RBC Hgb Hct MCV MCH MCHC RDW Lymph % (Auto) [place] % (Auto) Lymph # (Auto) [place] # (Auto) Baso # (Auto) Seg Neutrophils % Seg Neuts % (Manual) Lymphocytes % (Manual) Nucleated RBC % Seg Neutrophils # Seg Neutrophils # Man Lymphocytes # (Manual) Monocytes # (Manual) Eosinophils # (Manual) PT INR APTT D-Dimer Heparin Anti-Xa Level ABG pH POC ABG pCO2 POC ABG pO2 ABG pO2 ABG HCO3 ABG O2 Saturation ABG Base Excess ABG Hemoglobin ABG Oxyhemoglobin ABG Sodium ABG Potassium ABG Chloride ABG Glucose Oxyhemoglobin Carboxyhemoglobin Sodium Potassium Chloride Carbon Dioxide BUN Creatinine Glucose POC Glucose 139 H 120 H 118 H Lactic Acid Calcium Magnesium Ferritin Total Bilirubin Direct Bilirubin AST ALT Alkaline Phosphatase Lactate Dehydrogenase C-Reactive Protein Total Protein Albumin Triglycerides Lipase Arterial Blood Glucose Arterial Blood Ionized Calcium Urine WBC (Auto) Coronavirus (PCR) SARS-CoV-2 IgG Ab Crossmatch 08/16/20 08/16/20 08/16/20 12:02 15:14 20:25 WBC RBC Hgb Hct MCV MCH MCHC RDW Lymph % (Auto) [place] % (Auto) Lymph # (Auto) [place] # (Auto) Baso # (Auto) Seg Neutrophils % Seg Neuts % (Manual) Lymphocytes % (Manual) Nucleated RBC % Seg Neutrophils # Seg Neutrophils # Man Lymphocytes # (Manual) Monocytes # (Manual) Eosinophils # (Manual) PT INR APTT D-Dimer Heparin Anti-Xa Level ABG pH POC ABG pCO2 POC ABG pO2 ABG pO2 ABG HCO3 ABG O2 Saturation ABG Base Excess ABG Hemoglobin ABG Oxyhemoglobin ABG Sodium ABG Potassium ABG Chloride ABG Glucose Oxyhemoglobin Carboxyhemoglobin Sodium Potassium Chloride Carbon Dioxide BUN Creatinine Glucose POC Glucose 128 H 143 H 132 H Lactic Acid Calcium Magnesium Ferritin Total Bilirubin Direct Bilirubin AST ALT Alkaline Phosphatase Lactate Dehydrogenase C-Reactive Protein Total Protein Albumin Triglycerides Lipase Arterial Blood Glucose Arterial Blood Ionized Calcium Urine WBC (Auto) Coronavirus (PCR) SARS-CoV-2 IgG Ab Crossmatch 08/17/20 08/17/20 08/17/20 07:34 10:59 16:10 WBC RBC Hgb Hct MCV MCH MCHC RDW Lymph % (Auto) [place] % (Auto) Lymph # (Auto) [place] # (Auto) Baso # (Auto) Seg Neutrophils % Seg Neuts % (Manual) Lymphocytes % (Manual) Nucleated RBC % Seg Neutrophils # Seg Neutrophils # Man Lymphocytes # (Manual) Monocytes # (Manual) Eosinophils # (Manual) PT INR APTT D-Dimer Heparin Anti-Xa Level ABG pH POC ABG pCO2 POC ABG pO2 ABG pO2 ABG HCO3 ABG O2 Saturation ABG Base Excess ABG Hemoglobin ABG Oxyhemoglobin ABG Sodium ABG Potassium ABG Chloride ABG Glucose Oxyhemoglobin Carboxyhemoglobin Sodium Potassium Chloride Carbon Dioxide BUN Creatinine Glucose POC Glucose 113 H 125 H 120 H Lactic Acid Calcium Magnesium Ferritin Total Bilirubin Direct Bilirubin AST ALT Alkaline Phosphatase Lactate Dehydrogenase C-Reactive Protein Total Protein Albumin Triglycerides Lipase Arterial Blood Glucose Arterial Blood Ionized Calcium Urine WBC (Auto) Coronavirus (PCR) SARS-CoV-2 IgG Ab Crossmatch 08/17/20 08/18/20 08/18/20 20:13 11:59 16:35 WBC RBC Hgb Hct MCV MCH MCHC RDW Lymph % (Auto) [place] % (Auto) Lymph # (Auto) [place] # (Auto) Baso # (Auto) Seg Neutrophils % Seg Neuts % (Manual) Lymphocytes % (Manual) Nucleated RBC % Seg Neutrophils # Seg Neutrophils # Man Lymphocytes # (Manual) Monocytes # (Manual) Eosinophils # (Manual) PT INR APTT D-Dimer Heparin Anti-Xa Level ABG pH POC ABG pCO2 POC ABG pO2 ABG pO2 ABG HCO3 ABG O2 Saturation ABG Base Excess ABG Hemoglobin ABG Oxyhemoglobin ABG Sodium ABG Potassium ABG Chloride ABG Glucose Oxyhemoglobin Carboxyhemoglobin Sodium Potassium Chloride Carbon Dioxide BUN Creatinine Glucose POC Glucose 148 H 140 H 126 H Lactic Acid Calcium Magnesium Ferritin Total Bilirubin Direct Bilirubin AST ALT Alkaline Phosphatase Lactate Dehydrogenase C-Reactive Protein Total Protein Albumin Triglycerides Lipase Arterial Blood Glucose Arterial Blood Ionized Calcium Urine WBC (Auto) Coronavirus (PCR) SARS-CoV-2 IgG Ab Crossmatch 08/18/20 21:15 WBC RBC Hgb Hct MCV MCH MCHC RDW Lymph % (Auto) [place] % (Auto) Lymph # (Auto) [place] # (Auto) Baso # (Auto) Seg Neutrophils % Seg Neuts % (Manual) Lymphocytes % (Manual) Nucleated RBC % Seg Neutrophils # Seg Neutrophils # Man Lymphocytes # (Manual) Monocytes # (Manual) Eosinophils # (Manual) PT INR APTT D-Dimer Heparin Anti-Xa Level ABG pH POC ABG pCO2 POC ABG pO2 ABG pO2 ABG HCO3 ABG O2 Saturation ABG Base Excess ABG Hemoglobin ABG Oxyhemoglobin ABG Sodium ABG Potassium ABG Chloride ABG Glucose Oxyhemoglobin Carboxyhemoglobin Sodium Potassium Chloride Carbon Dioxide BUN Creatinine Glucose POC Glucose 119 H Lactic Acid Calcium Magnesium Ferritin Total Bilirubin Direct Bilirubin AST ALT Alkaline Phosphatase Lactate Dehydrogenase C-Reactive Protein Total Protein Albumin Triglycerides Lipase Arterial Blood Glucose Arterial Blood Ionized Calcium Urine WBC (Auto) Coronavirus (PCR) SARS-CoV-2 IgG Ab Crossmatch Allied health notes reviewed: nursing
[2020-08-19] MEDS: guaiFENesin/CODEINE 100-10MG ORAL LIQD 5 ML PO PRN (14:30)
--- NOTE | 2020-08-19 19:35 | Progress Note ---
Assessment and Plan Assessment and plan: Positive COVID-19 test; 05/10/2020 Negative COVID-19 test; 06/30/2020 --Acute hypoxemic resp failure; oxygen dependent on 4 L NC, requiring intermittent BiPAP Due to COVID-19 pneumonia --Persistent sinus tachycardia: Multifactorial We will closely monitor --Severe COVID-19 bilateral pneumonia Coronavirus protocol: Completed steroids and remdesivir therapy, isolation precautions, Received management per COVID-19 protocol Repeat ivory PCR test negative on 06/30/2020 Isolation discontinued --Pneumothorax status post right chest tube Chest tube removed 07/23/2020 Post removal chest x-ray no pneumothorax Patient is requiring 3 to 4 L nasal cannula And intermittent BiPAP --Severe hypokalemia; resolved --Elevated D-dimers; Patient had CTA chest ; negative for PE, patient already had lower extremity venous Doppler which was negative for DVT --Pseudomonas bacteremia; ID following, completed cefepime Monitor off antibiotics --Severe sepsis/septic shock, monitor off pressors Completed cefepime, monitor off antibiotics -- Acute kidney injury (SEN) , likely vasomotor nephropathy Resolved, avoid nephrotoxins --Acute on chronic anemia Guaiac test positive, GI evaluated the patient Patient H&H is normal range now Hb 11.8 -- Elevated liver function tests; resolved LFTs within normal limits --Colonic distention GI evaluated colonic distention resolved recommend stool softeners -- DVT prophylaxis On therapeutic Lovenox CTA chest negative for PE,LE DVT negative, therapeutic Lovenox DC'd Changed to prophylactic Lovenox Discharge planning per case management reports that IRU is evaluating the patient for placement Patient is medically stable for discharge Disposition; IRU placement versus home with home health Discussed with case management and the patient again today. 50 YO Male with Obesity, ETOH Dependence presents to ED for evaluation. Patient states that he has experienced shortness of breath, generalized weakness, fatigue, malaise, body aches, decreased exercise tolerance over the past 5 days with persistently worsening symptoms over the same timeframe. EMS was notified and upon arrival the patient was found to be in distress with a pulse oximetry of 76% on room air as well as fever to 103 F. Patient was placed on supplemental oxygen and subsequently transported to [facility] for further care and evaluation. Patient seen and evaluated in the emergency department. All lab and imaging studies reviewed. Patient underwent chest x-ray and was found to have bilateral pneumonia. Patient also found to have a pulse oximetry of 86% on 4 L nasal cannula. Patient initiated on a high flow submental oxygen with improvement of pulse oximetry. Patient admitted to medical floor and initiated on pneumonia protocol as well as COVID-19 protocol. Patient also found to have acute kidney injury as well as elevated liver function test suspected secondary to alcohol dependence. Patient reports being diagnosed with coronavirus 2 days ago. No prior admission for review. 07/23/2020; patient remains on high flow oxygen, wean oxygen as tolerated, severe hypokalemia Replenish per protocol monitor levels 07/24/2020; patient had chest tube removal yesterday 07/23/2019 and, post removal chest x-ray no pneumothorax no acute abnormalities Patient feels slightly better continues to require high flow oxygen Wean as tolerated, physical and occupational therapy, DC planning 07/26/2020; patient on 3 L nasal cannula oxygen, patient feels better 07/27/2020; patient was saturating well on 3 L of nasal cannula oxygen, however today patient is on high flow oxygen 15 L Complains of some congestion, wean oxygen levels to 3-5 as tolerated Discharge planning LTAC has refused patient,Possible home with home health v ersus placement when medically stable 07/28/2020; continue to wean oxygen, patient is on 10 L, awaiting placement 07/29/2020; continues to be on 10 L nasal cannula oxygen, wean as tolerated Patient is on empiric therapeutic dose Lovenox, due to elevated D-dimers Patient is stable for CTA chest today, follow the report and adjust Lovenox as needed DC planning per case management, with pending placement 07/30/2020; patient feels slightly better, oxygen reduced to 8 L of nasal cannula Will check PT OT, pending placement 07/31/2020 :Patient on 8 L of nasal cannula oxygen 08/03/2020; patient's oxygen requirement has come down to 3-4 and half liters nasal cannula Will try to wean oxygen as tolerated, respiratory therapist assisting to reach the goal Possible discharge home in 1 to 2 days if stable Plan of care reviewed with the patient and his nurse 08/04/2020; patient is requiring 3 to 4 L nasal cannula oxygen, case management to set up home oxygen Patient is hemodynamically and clinically stable for discharge, pending placement [facility] And of care reviewed with the patient and his nurse as well as the case management 08/05/2020 ; COVID-19 test requested , patient is hemodynamically and clinically stable for discharge Patient is requiring 4 L of nasal cannula oxygen . medically stable for discharge 08/06/2020; patient is hemodynamically and clinically stable for discharge and t ransfer to IRU unit today Pre-discharge COVID-19 test is negative, pending insurance authorization 08/07/20; patient is accepted by inpatient rehab unit for admission, pending insurance authorization Stable for discharge 08/08/2020; patient is stable for discharge to inpatient rehab unit, pending in surance approval 08/09/2020; shoe caser reports that insurance has not approved inpatient rehab placement for this patient Will evaluate for home oxygen, set up home oxygen if eligible, and plan disc harge home with home health when patient is hemodynamically stable 08/10/2020; patient continues to have persistent tachycardia, and persistent hypoxia requiring 4 L of nasal cannula oxygen As well as intermittent BiPAP, continue current management 08/11/2020; patient continues to require oxygen and intermittent BiPAP, awaiting IRU placement Versus home with home health and home oxygen, DC planning per case management 08/12/2020; awaiting IRU placement versus home with home health on home oxygen 08/14/2020-08/18/2020; patient continues to require 4 L of nasal cannula oxygen Discharge planning is in process, PT recommend acute inpatient rehab, awaiting insurance approval CM reports insurance denied inpatient rehab placement option 08/19/2020; I spoke with insurance physician Dr. Lopez, P2P and discussed patient's condition and the need for inpatient rehab However Dr. Macias reports that PT/OT evaluation and documentation does not reflect that patient can complete 3 hours of acute therapy in acute rehab. It reflects that he can hardly walk few steps/few feet. Advised to reevaluate i f he meets the above requirements. Dr. Macias also reports that she can approve for subacute rehab placement. Brief history and hospital course; Patient with pneumothorax status post chest tube placement and removal continues to require 4 to 5 L of nasal cannula oxygen, initially IRU placement was considered, insurance did not approve, daughter is trying for reconsideration for IRU placement, patient pending placement versus home with home health when stable History Interval history: I have seen and examined the patient at the bedside this morning Patient feels slightly better anxious to go to inpatient rehab today Patient denies any chest pain or shortness of breath Requiring 4 L of nasal cannula oxygen Not in acute distress Vital signs reviewed Hospitalist Physical - Constitutional Vitals: Temp Pulse Resp BP Pulse Ox 98.6 F 115 H 18 113/73 97 08/19/20 15:41 08/19/20 15:41 08/19/20 15:41 08/19/20 15:41 08/19/20 15:41 General appearance: Present: no acute distress, well-nourished - EENT Eyes: Present: PERRL, EOM intact - Neck Neck: Present: supple, normal ROM - Respiratory Respiratory effort: normal Respiratory: bilateral: diminished, negative: rales, rhonchi, wheezing - Cardiovascular Rhythm: regular Heart Sounds: Present: S1 & S2 - Extremities Extremities: no ischemia, No edema - Abdominal General gastrointestinal: soft, non-tender, non-distended, normal bowel sounds - Integumentary Integumentary: Present: clear, warm - Psychiatric Psychiatric: appropriate mood/affect, cooperative - Neurologic Neurologic: CNII-XII intact, moves all extremities HEART Score - HEART Score Troponin: Troponin T 0.015 ng/mL (0.00-0.029) 07/07/20 10:00 Results - Labs CBC & Chem 7: 08/02/20 05:55 08/12/20 18:34 Labs: Laboratory Last Values WBC 12.4 K/mm3 (4.5-11.0) H 08/02/20 05:55 RBC 3.85 M/mm3 (3.65-5.03) 08/02/20 05:55 Hgb 12.3 gm/dl (11.8-15.2) 08/02/20 05:55 Hct 37.9 % (35.5-45.6) 08/02/20 05:55 MCV 99 fl (84-94) H 08/02/20 05:55 MCH 32 pg (28-32) 08/02/20 05:55 MCHC 33 % (32-34) 08/02/20 05:55 RDW 16.9 % (13.2-15.2) H 08/02/20 05:55 Plt Count 267 K/mm3 (140-440) 08/02/20 05:55 Lymph % (Auto) 18.3 % (13.4-35.0) 08/02/20 05:55 Latimer % (Auto) 9.7 % (0.0-7.3) H 08/02/20 05:55 Eos % (Auto) 3.3 % (0.0-4.3) 08/02/20 05:55 Baso % (Auto) 0.4 % (0.0-1.8) 08/02/20 05:55 Lymph # (Auto) 2.3 K/mm3 (1.2-5.4) 08/02/20 05:55 Latimer # (Auto) 1.2 K/mm3 (0.0-0.8) H 08/02/20 05:55 Eos # (Auto) 0.4 K/mm3 (0.0-0.4) 08/02/20 05:55 Baso # (Auto) 0.1 K/mm3 (0.0-0.1) 08/02/20 05:55 Add Manual Diff Complete 07/13/20 08:31 Total Counted 100 07/13/20 08:31 Seg Neutrophils % 68.3 % (40.0-70.0) 08/02/20 05:55 Seg Neuts % (Manual) 96.0 % (40.0-70.0) H 07/13/20 08:31 Band Neutrophils % 0 % 07/13/20 08:31 Lymphocytes % (Manual) 2.0 % (13.4-35.0) L 07/13/20 08:31 Reactive Lymphs % (Man) 0 % 07/13/20 08:31 Monocytes % (Manual) 2.0 % (0.0-7.3) 07/13/20 08:31 Eosinophils % (Manual) 0 % (0.0-4.3) 07/13/20 08:31 Basophils % (Manual) 0 % (0.0-1.8) 07/13/20 08:31 Metamyelocytes % 0 % 07/13/20 08:31 Myelocytes % 0 % 07/13/20 08:31 Promyelocytes % 0 % 07/13/20 08:31 Blast Cells % 0 % 07/13/20 08:31 Nucleated RBC % Not Reportable 07/13/20 08:31 Seg Neutrophils # 8.5 K/mm3 (1.8-7.7) H 08/02/20 05:55 Seg Neutrophils # Man 20.4 K/mm3 (1.8-7.7) H 07/13/20 08:31 Band Neutrophils # 0.0 K/mm3 07/13/20 08:31 Lymphocytes # (Manual) 0.4 K/mm3 (1.2-5.4) L 07/13/20 08:31 Abs React Lymphs (Man) 0.0 K/mm3 07/13/20 08:31 Monocytes # (Manual) 0.4 K/mm3 (0.0-0.8) 07/13/20 08:31 Eosinophils # (Manual) 0.0 K/mm3 (0.0-0.4) 07/13/20 08:31 Basophils # (Manual) 0.0 K/mm3 (0.0-0.1) 07/13/20 08:31 Metamyelocytes # 0.0 K/mm3 07/13/20 08:31 Myelocytes # 0.0 K/mm3 07/13/20 08:31 Promyelocytes # 0.0 K/mm3 07/13/20 08:31 Blast Cells # 0.0 K/mm3 07/13/20 08:31 WBC Morphology Not Reportable 07/13/20 08:31 Hypersegmented Neuts Not Reportable 07/13/20 08:31 Hyposegmented Neuts Not Reportable 07/13/20 08:31 Hypogranular Neuts Not Reportable 07/13/20 08:31 Smudge Cells Not Reportable 07/13/20 08:31 Toxic Granulation Not Reportable 07/13/20 08:31 Toxic Vacuolation Not Reportable 07/13/20 08:31 Dohle Bodies Not Reportable 07/13/20 08:31 Pelger-Huet Anomaly Not Reportable 07/13/20 08:31 Jason Rods Not Reportable 07/13/20 08:31 Platelet Estimate Consistent w auto 07/13/20 08:31 Clumped Platelets Not Reportable 07/13/20 08:31 Plt Clumps, EDTA Not Reportable 07/13/20 08:31 Large Platelets Not Reportable 07/13/20 08:31 Giant Platelets Not Reportable 07/13/20 08:31 Platelet Satelliting Not Reportable 07/13/20 08:31 Plt Morphology Comment Not Reportable 07/13/20 08:31 RBC Morphology Not Reportable 07/13/20 08:31 Dimorphic RBCs Not Reportable 07/13/20 08:31 Polychromasia Not Reportable 07/13/20 08:31 Hypochromasia Not Reportable 07/13/20 08:31 Poikilocytosis Not Reportable 07/13/20 08:31 Anisocytosis Not Reportable 07/13/20 08:31 Microcytosis Not Reportable 07/13/20 08:31 Macrocytosis Not Reportable 07/13/20 08:31 Spherocytes Not Reportable 07/13/20 08:31 Pappenheimer Bodies Not Reportable 07/13/20 08:31 Sickle Cells Not Reportable 07/13/20 08:31 Target Cells Not Reportable 07/13/20 08:31 Tear Drop Cells Not Reportable 07/13/20 08:31 Ovalocytes Not Reportable 07/13/20 08:31 Stomatocytes Few 07/13/20 08:31 Helmet Cells Not Reportable 07/13/20 08:31 Sinclair-[place] Bodies Not Reportable 07/13/20 08:31 [place] Rings Not Reportable 07/13/20 08:31 Oxford Cells Not Reportable 07/13/20 08:31 Bite Cells Not Reportable 07/13/20 08:31 Crenated Cell Not Reportable 07/13/20 08:31 Elliptocytes Not Reportable 07/13/20 08:31 Acanthocytes (Spur) Not Reportable 07/13/20 08:31 Rouleaux Not Reportable 07/13/20 08:31 Hemoglobin C Crystals Not Reportable 07/13/20 08:31 Schistocytes Not Reportable 07/13/20 08:31 Malaria parasites Not Reportable 07/13/20 08:31 Josue Bodies Not Reportable 07/13/20 08:31 Hem Pathologist Commnt No 07/13/20 08:31 PT 11.8 Sec. (12.2-14.9) L 06/22/20 14:29 INR 0.88 (0.87-1.13) 06/22/20 14:29 APTT 23.5 Sec. (24.2-36.6) L 06/22/20 14:29 D-Dimer 1887.82 ng/mlDDU (0-234) H 05/20/20 08:16 Heparin Anti-Xa Level 0.37 U.I./ml (0.3-0.7) 07/02/20 16:08 ABG pH 7.437 (7.320-7.450) 08/11/20 18:43 POC ABG pCO2 51.0 mmHg (32.0-48.0) H 08/11/20 18:43 ABG pCO2 53.1 mm Hg 07/08/20 Unknown POC ABG pO2 84.9 mmHg (83-108) 08/11/20 18:43 ABG pO2 75.3 mm Hg (80.0-90.0) L 07/08/20 Unknown POC ABG HCO3 33.6 08/11/20 18:43 ABG HCO3 34.3 mmol/L (20.0-26.0) H 07/08/20 Unknown ABG O2 Saturation 96.5 % (95.0-99.0) 07/08/20 Unknown ABG O2 Content 13.5 (0.0-44) 07/08/20 Unknown POC ABG Base Excess 7.9 08/11/20 18:43 ABG Base Excess 8.7 mmol/L (-2.0-3.0) H 07/08/20 Unknown ABG Hemoglobin 13.8 (12.0-17.5) 08/11/20 18:43 ABG Oxyhemoglobin 94.6 (94-98) 08/11/20 18:43 ABG Carboxyhemoglobin 2.4 % (0.0-5.0) 07/08/20 Unknown ABG Methemoglobin 0.3 (0.0-1.5) 08/11/20 18:43 ABG Sodium 138.0 mmol/L (136.0-145.0) 08/11/20 18:43 ABG Potassium 3.4 mmol/L (3.40-4.50) 08/11/20 18:43 ABG Chloride 99.0 mmol/L (98-107) 08/11/20 18:43 ABG Glucose 149 mg/dL (65-95) H 08/11/20 18:43 Oxyhemoglobin 93.7 % (95.0-99.0) L 07/08/20 Unknown Carboxyhemoglobin 1.2 (0.5-1.5) 08/11/20 18:43 FiO2 50.0 08/11/20 18:43 Sodium 139 mmol/L (137-145) 08/12/20 18:34 Potassium 3.7 mmol/L (3.6-5.0) 08/12/20 18:34 Chloride 97.2 mmol/L (98-107) L 08/12/20 18:34 Carbon Dioxide 28 mmol/L (22-30) 08/12/20 18:34 Anion Gap 18 mmol/L 08/12/20 18:34 BUN 15 mg/dL (9-20) 08/12/20 18:34 Creatinine 0.5 mg/dL (0.8-1.3) L 08/12/20 18:34 Estimated GFR > 60 ml/min 08/12/20 18:34 BUN/Creatinine Ratio 30 % 08/12/20 18:34 Glucose 132 mg/dL (75-100) H 08/12/20 18:34 POC Glucose 117 mg/dL (70-105) H 08/19/20 15:39 Lactic Acid 0.80 mmol/L (0.7-2.0) 07/13/20 15:45 Calcium 9.2 mg/dL (8.4-10.2) 08/12/20 18:34 Phosphorus 3.10 mg/dL (2.5-4.5) 06/15/20 04:00 Magnesium 2.00 mg/dL (1.7-2.3) 07/24/20 05:05 Ferritin 1496.0 ng/mL (30.0-300.0) H 06/14/20 11:50 Total Bilirubin 0.30 mg/dL (0.1-1.2) 08/02/20 05:55 Direct Bilirubin 0.6 mg/dL (0-0.2) H 05/11/20 07:30 Indirect Bilirubin 0.9 mg/dL 05/11/20 07:30 AST 37 units/L (5-40) 08/02/20 05:55 ALT 118 units/L (7-56) H 08/02/20 05:55 Alkaline Phosphatase 88 units/L (35-129) 08/02/20 05:55 Lactate Dehydrogenase 705 units/L (91-180) H 05/20/20 08:16 Troponin T 0.015 ng/mL (0.00-0.029) 07/07/20 10:00 C-Reactive Protein 3.10 mg/dL (0.00-1.30) H 05/20/20 08:16 Total Protein 6.4 g/dL (6.3-8.2) 08/02/20 05:55 Albumin 3.3 g/dL (3.9-5) L 08/02/20 05:55 Albumin/Globulin Ratio 1.1 % 08/02/20 05:55 Triglycerides 452 mg/dL (2-149) H 06/30/20 07:00 Lipase 86 units/L (13-60) H 06/29/20 09:36 Procalcitonin 2.15 ng/mL (<0.15) 07/15/20 05:31 Arterial Blood Glucose 149 mg/dL (65-95) H 08/11/20 18:43 Arterial Blood Ionized Calcium 4.8 mg/dL (4.6-5.3) 08/11/20 18:43 Urine Color Fauzia (Yellow) 05/10/20 Unknown Urine Turbidity Clear (Clear) 05/10/20 Unknown Urine pH 5.0 (5.0-7.0) 05/10/20 Unknown Ur Specific Pillow 1.019 (1.003-1.030) 05/10/20 Unknown Urine Protein 100 mg/dl mg/dL (Negative) 05/10/20 Unknown Urine Glucose (UA) Neg mg/dL (Negative) 05/10/20 Unknown Urine Ketones Neg mg/dL (Negative) 05/10/20 Unknown Urine Blood Lg (Negative) 05/10/20 Unknown Urine Nitrite Neg (Negative) 05/10/20 Unknown Urine Bilirubin Neg (Negative) 05/10/20 Unknown Urine Urobilinogen 2.0 mg/dL (<2.0) 05/10/20 Unknown Ur Leukocyte Esterase Neg (Negative) 05/10/20 Unknown Urine WBC (Auto) 11.0 /HPF (0.0-6.0) H 05/10/20 Unknown Urine RBC (Auto) 2.0 /HPF (0.0-6.0) 05/10/20 Unknown U Epithel Cells (Auto) 1.0 /HPF (0-13.0) 05/10/20 Unknown Urine Bacteria (Auto) 1+ /HPF (Negative) 05/10/20 Unknown Urine Mucus Few /HPF 05/10/20 Unknown Plasma/Serum Alcohol < 0.01 % (0-0.07) 05/09/20 14:20 Coronavirus (PCR) Negative (Negative) 08/06/20 09:36 Hepatitis A Ab Total Nonreactive (Nonreactive) 07/09/20 Unknown Hep B Core Total Ab Nonreactive (Nonreactive) 07/09/20 Unknown Hepatitis C RNA Quant See scanned result 07/09/20 Unknown SARS-CoV-2 IgG Ab Reactive (NonReactive) A 05/11/20 07:30 Blood Type B POSITIVE 06/21/20 14:18 Antibody Screen Negative 06/21/20 14:18 Crossmatch See Detail 06/21/20 14:18 - Diagnostic Impressions Diagnostic Impressions: Echocardiogram 05/20/20 13:02 Transthoracic Echocardiogram Indication: CHF BP: 97/73 Conclusions *The study quality is technically very difficult and limited. *The left ventricular chamber size, wall thickness and systolic function are within normal limits. There are no wall motion abnormalities observed. Ejection fraction is normal. *The estimated ejection fraction is 60-65%. *The pericardium appears normal. Findings Procedure Info: The study quality is technically difficult. Left Ventricle: The left ventricular chamber size, wall thickness and systolic function are within normal limits. There are no wall motion abnormalities observed. Ejection fraction is normal. The estimated ejection fraction is 60-65%. Abnormal left ventricular diastolic filling is observed, consistent with impaired relaxation. Left Atrium: The left atrium is normal in size with no visual thrombus identified. Right Ventricle: The right ventricle is not well visualized. Right Atrium: The right atrium is not well visualized. Aortic Valve: The aortic valve is trileaflet. The leaflets are thin with normal excursion. There is no aortic stenosis or regurgitation present. Mitral Valve: The mitral valve appears normal in structure and function. Tricuspid Valve: The tricuspid valve appears normal in structure and function. Unable to estimate the right ventricular systolic pressure. Pulmonic Valve: The pulmonic valve is not well visualized. There is no evidence of pulmonic regurgitation. There is no pulmonic stenosis. Pericardium: The pericardium appears normal. Pulmonary Artery: The main pulmonary artery is not well visualized. Venous: The inferior vena cava appears normal in size. Measurements Chambers 2D Name Value Normal Range IVSd (2D) 0.83 cm (0.6 - 1.1) LVPWd (2D) 0.83 cm (0.6 - 1.1) LVIDd (2D) 3.88 cm (3.7 - 5.6) LVIDs (2D) 2.46 cm (2 - 3.8) LV FS (2D) 36.52 % - EF Teichholz (2D) 66.97 % - Ao root diameter (2D) 3.47 cm (2 - 3.7) Volumes/Mass Name Value Normal Range LA ESV SP 4CH (A/L) 22.4 ml - LA ESV SP 2CH (A/L) 22.89 ml - LA ESV BP (A/L) 23.06 ml - LA ESV SP 4CH (MOD) 21.09 ml - LA ESV SP 2CH (MOD) 22.44 ml - Diastolic/Systolic Function Name Value Normal Range MV E-wave Vmax 0.48 m/sec - MV deceleration time 156.3 msec - MV A-wave Vmax 0.59 m/sec - MV E:A ratio 0.81 ratio - Aortic Valve Name Value Normal Range AV Vmax 0.97 m/sec - AV VTI 14.49 cm - AV peak gradient 3.73 mmHg - AV mean gradient 1.89 mmHg - LVOT diameter 2.09 cm - LVOT Vmax 0.72 m/sec - LVOT VTI 10.21 cm - LVOT peak gradient 2.05 mmHg - LVOT mean gradient 1.03 mmHg - SV LVOT 35.17 ml - INNA (continuity Vmax) 2.55 cm2 - INNA (continuity VTI) 2.43 cm2 - Tricuspid Valve Name Value Normal Range TV E-wave Vmax 0.37 m/sec - Pulmonic Valve/Qp:Qs Name Value Normal Range PV Vmax 0.72 m/sec - PV peak gradient 2.06 mmHg - RVOT Vmax 0.85 m/sec - RVOT VTI 9.89 cm - RVOT peak gradient 2.9 mmHg - PV acceleration time 72.31 msec - Cantor/IV: Voiding Method Urinal IV Catheter Type [Right Wrist] INT / Saline Lock IV Catheter Type [Right Upper Peripheral IV arm] IV Catheter Type [Right CVL Internal Jugular] IV Catheter Type [Right Peripheral IV Forearm] IV Catheter Type [Left Forearm INT / Saline Lock ] IV Catheter Type [Left Wrist] INT / Saline Lock IV Catheter Type [Right Hand] INT / Saline Lock IV Catheter Type [Left Hand] INT / Saline Lock IV Catheter Type [Left Peripheral IV Antecubital] Active Medications - Current Medications Current Medications: Generic Name Dose Route Start Last Admin Trade Name Freq PRN Reason Stop Dose Admin Acetaminophen 650 mg 08/07/20 10:06 08/13/20 16:05 Acetaminophen 325 Mg Tab PO 650 mg Q4H PRN Administration Pain, Mild (1-3) Bisacodyl 10 mg 07/14/20 11:00 Bisacodyl 10 Mg Rect Supp AL BID PRN Laxative Effect Enoxaparin Sodium 40 mg 07/29/20 22:00 08/18/20 22:08 Enoxaparin 40 Mg/0.4 Ml Inj SUB-Q 40 mg QDAY@2200 [facility] Administration Protocol Folic Acid 1 mg 05/09/20 15:36 08/19/20 10:15 Folic Acid 1 Mg Tab PO 1 mg QDAY DESIRE Administration Guaifenesin 600 mg 07/19/20 23:00 08/19/20 10:14 Guaifenesin Er 600 Mg Tab PO 600 mg BID [facility] Administration Hydrophilic Ointment 1 applic 05/21/20 20:33 Lip Therapy Vaseline TP Q2HR PRN Dry Lips Insulin Human Lispro 0 unit 07/31/20 07:30 08/19/20 17:29 Insulin Lispro 100 Unit/Ml SUB-Q Not Given ACHS [facility] Protocol Lansoprazole 30 mg 06/28/20 10:00 08/19/20 10:14 Lansoprazole 30 Mg Solutab FEEDTUBE 30 mg QDAY DESIRE Administration Metoprolol Tartrate 5 mg 07/02/20 17:17 08/13/20 14:44 Metoprolol Tartrate 5 Mg/5 Ml Inj IV 5 mg Q6HR PRN Administration Tachyarrhythmias Metoprolol Tartrate 25 mg 08/12/20 12:00 08/19/20 10:14 Metoprolol Tartrate 25 Mg Tab PO 25 mg BID DESIRE Administration Multi-Ingred Cream/Lotion/Oil/Oint 1 applic 05/21/20 20:33 Mineral Oil/Petrolatum, White Ophth Oint 3.5 Gm OU Q4HR PRN Dry Eye(s) Olanzapine 5 mg 07/17/20 22:00 08/18/20 22:15 Olanzapine 5 Mg Tab PO 5 mg QHS DESIRE Administration Phenobarbital 32.4 mg 07/04/20 22:00 08/19/20 10:14 Phenobarbital 32.4 Mg Tab PO 32.4 mg BID DESIRE Administration Pseudoephedrine/Acetam/Chlorphenir 10 ml 08/18/20 15:45 08/19/20 14:30 Guaifenesin/Codeine 100-10mg Oral Liqd 5 Ml PO 10 ml Q4H PRN Administration Cough Quetiapine Fumarate 200 mg 07/16/20 10:00 08/19/20 10:15 Quetiapine 200 Mg Tab PO 200 mg QAM DESIRE Administration Senna 17.2 mg 07/14/20 11:00 08/03/20 16:46 Sennosides 8.6 Mg Tab PO 8.6 mg BID PRN Administration Laxative Effect Nutrition/Malnutrition Assess - Dietary Evaluation Nutrition/Malnutrition Findings: Nutrition Notes Start: 05/17/20 14:10 Freq: Status: Active Protocol: Document 08/18/20 12:39 CW (Rec: 08/18/20 12:53 CW [id number]) Nutrition Notes Initial or Follow up Reassessment Current Diagnosis Acute Kidney Injury,Decubitus( Pressure Ulcer),Sepsis, Respiratory Failure Other Pertinent Diagnosis Bilat pneu, COVID-19 (-), Colonic pseudoobstuction, EtOH dependence Current Diet Regular diet Labs/Tests Reviewed Pertinent Medications Reviewed Height 6 ft Weight 99.5 kg Usual Body Weight 118 kg [place] Body Weight (kg) 80.90 BMI 29.7 Weight change and time frame Weight gain noted Weight Status Overweight Subjective/Other Information F/u for intakes, Sammy and ONS tolerance. Pt reports consuming 100% of meals and ONS. R/O good appetite. Pt denies N/V/D/C. Percent of energy/protein needs met: 100%/100% Burn Absent Trauma Absent GI Symptoms None Current % PO Good (75-100%) Minimum of two criteria Yes Interpretation of Weight Loss (severe) >5% in 1 month Muscle Mass Mild Depletion (non-severe) #3 Nutrition Diagnosis Malnutrition Diagnosis Progress(for reassessment Continues documentation) #2 Nutrition Diagnosis Increased nutrient needs ( specify in comment below) Diagnosis Progress(for reassessment Continues documentation) Is patient on ventilator? No Is Patient Ambulatory and/or Out of Bed No REE-([place]-[facility]-confined to bed) 2269.308 Kcal/Kg value to use for calculation 21 Approximate Energy Requirements Using 0 kcal/Kg Calculation Used for Recommendations Kcal/kg Additional Notes Protein: 108-135 g (1.2-1.5 g/ kg AdBW 90 kg) Fluid: 1ml/kcal Nutrition Intervention Change Diet Order: Continue diet Add Supplement/Snack (indicate name/kcal Ensure High Protein daily /protein ) Sammy BID Provides kCal: 350 Provides Protein (gm) 21 Goal #1 Meet at least 75% protein and energy needs via PO Goal #2 ONS tolerance Goal #3 Intake of Sammy BID Anticipated Discharge Needs: Regular dier, Sammy BID and Ensure High Protein until wound healed Follow-Up By: 08/25/20 Additional Comments F/u stable intakes, ONS and Sammy tolerance/intake
--- NOTE | 2020-08-19 19:55 | Event Note ---
Date: 08/19/[address] Macias[[facility] insurance physician] 08/19/2020; I spoke with insurance physician Dr. Lopez, P2P and discussed daniel gonzalez's condition and the need for inpatient rehab However Dr. Macias reports that PT/OT evaluation and documentation does not reflect that patient can complete 3 hours of acute therapy in acute rehab. It reflects that he can hardly walk few steps/few feet. Advised to reevaluate if he meets the above requirements. Dr. Macias also reports that she can approve for subacute rehab placement.
[2020-08-19] MEDS: ENOXAPARIN 40 MG/0.4 ML INJ SUB-Q SCH (21:11)
[2020-08-20] MEDS: LANSOPRAZOLE 30 MG SOLUTAB FEEDTUBE SCH (09:19)
[2020-08-20] MEDS: METOPROLOL TARTRATE 25 MG TAB PO SCH ×2 (09:19→21:45)
[2020-08-20] MEDS: FOLIC ACID 1 MG TAB PO SCH (09:19)
[2020-08-20] MEDS: guaiFENesin ER 600 MG TAB PO SCH ×2 (09:19→21:45)
[2020-08-20] MEDS: PHENobarbital 32.4 MG TAB PO SCH ×2 (09:19→21:45)
[2020-08-20] MEDS: QUEtiapine 200 MG TAB PO SCH (09:19)
[2020-08-20] MEDS: INSULIN LISPRO 100 UNIT/ML SUB-Q SCH ×4 (09:20→21:46)
--- NOTE | 2020-08-20 20:31 | Progress Note ---
Assessment and Plan Assessment and plan: Positive COVID-19 test; 05/10/2020 Negative COVID-19 test; 06/30/2020 --Acute hypoxemic resp failure; oxygen dependent on 4 L NC, requiring intermittent BiPAP Due to COVID-19 pneumonia --Persistent sinus tachycardia: Multifactorial We will closely monitor --Severe COVID-19 bilateral pneumonia Coronavirus protocol: Completed steroids and remdesivir therapy, isolation precautions, Received management per COVID-19 protocol Repeat ivory PCR test negative on 06/30/2020 Isolation discontinued --Pneumothorax status post right chest tube Chest tube removed 07/23/2020 Post removal chest x-ray no pneumothorax Patient is requiring 3 to 4 L nasal cannula And intermittent BiPAP --Severe hypokalemia; resolved --Elevated D-dimers; Patient had CTA chest ; negative for PE, patient already had lower extremity venous Doppler which was negative for DVT --Pseudomonas bacteremia; ID following, completed cefepime Monitor off antibiotics --Severe sepsis/septic shock, monitor off pressors Completed cefepime, monitor off antibiotics -- Acute kidney injury (SEN) , likely vasomotor nephropathy Resolved, avoid nephrotoxins --Acute on chronic anemia Guaiac test positive, GI evaluated the patient Patient H&H is normal range now Hb 11.8 -- Elevated liver function tests; resolved LFTs within normal limits --Colonic distention GI evaluated colonic distention resolved recommend stool softeners -- DVT prophylaxis On therapeutic Lovenox CTA chest negative for PE,LE DVT negative, therapeutic Lovenox DC'd Changed to prophylactic Lovenox Discharge planning per case management reports that IRU is evaluating the patient for placement Patient is medically stable for discharge Disposition; IRU placement versus home with home health Discussed with case management and the patient again today. 50 YO Male with Obesity, ETOH Dependence presents to ED for evaluation. Patient states that he has experienced shortness of breath, generalized weakness, fatigue, malaise, body aches, decreased exercise tolerance over the past 5 days with persistently worsening symptoms over the same timeframe. EMS was notified and upon arrival the patient was found to be in distress with a pulse oximetry of 76% on room air as well as fever to 103 F. Patient was placed on supplemental oxygen and subsequently transported to [facility] for further care and evaluation. Patient seen and evaluated in the emergency department. All lab and imaging studies reviewed. Patient underwent chest x-ray and was found to have bilateral pneumonia. Patient also found to have a pulse oximetry of 86% on 4 L nasal cannula. Patient initiated on a high flow submental oxygen with improvement of pulse oximetry. Patient admitted to medical floor and initiated on pneumonia protocol as well as COVID-19 protocol. Patient also found to have acute kidney injury as well as elevated liver function test suspected secondary to alcohol dependence. Patient reports being diagnosed with coronavirus 2 days ago. No prior admission for review. 07/23/2020; patient remains on high flow oxygen, wean oxygen as tolerated, severe hypokalemia Replenish per protocol monitor levels 07/24/2020; patient had chest tube removal yesterday 07/23/2019 and, post removal chest x-ray no pneumothorax no acute abnormalities Patient feels slightly better continues to require high flow oxygen Wean as tolerated, physical and occupational therapy, DC planning 07/26/2020; patient on 3 L nasal cannula oxygen, patient feels better 07/27/2020; patient was saturating well on 3 L of nasal cannula oxygen, however today patient is on high flow oxygen 15 L Complains of some congestion, wean oxygen levels to 3-5 as tolerated Discharge planning LTAC has refused patient,Possible home with home health vers us placement when medically stable 07/28/2020; continue to wean oxygen, patient is on 10 L, awaiting placement 07/29/2020; continues to be on 10 L nasal cannula oxygen, wean as tolerated Patient is on empiric therapeutic dose Lovenox, due to elevated D-dimers Patient is stable for CTA chest today, follow the report and adjust Lovenox as needed DC planning per case management, with pending placement 07/30/2020; patient feels slightly better, oxygen reduced to 8 L of nasal cannula Will check PT OT, pending placement 07/31/2020 :Patient on 8 L of nasal cannula oxygen 08/03/2020; patient's oxygen requirement has come down to 3-4 and half liters nasal cannula Will try to wean oxygen as tolerated, respiratory therapist assisting to reach the goal Possible discharge home in 1 to 2 days if stable Plan of care reviewed with the patient and his nurse 08/04/2020; patient is requiring 3 to 4 L nasal cannula oxygen, case management to set up home oxygen Patient is hemodynamically and clinically stable for discharge, pending placement [facility] And of care reviewed with the patient and his nurse as well as the case management 08/05/2020 ; COVID-19 test requested , patient is hemodynamically and clinically stable for discharge Patient is requiring 4 L of nasal cannula oxygen . medically stable for discharge 08/06/2020; patient is hemodynamically and clinically stable for discharge and transfer to IRU unit today Pre-discharge COVID-19 test is negative, pending insurance authorization 08/07/20; patient is accepted by inpatient rehab unit for admission, pending insurance authorization Stable for discharge 08/08/2020; patient is stable for discharge to inpatient rehab unit, pending insurance approval 08/09/2020; mental health case manager reports that insurance has not approved inpatient rehab placement for this patient Will evaluate for home oxygen, set up home oxygen if eligible, and plan dischar ge home with home health when patient is hemodynamically stable 08/10/2020; patient continues to have persistent tachycardia, and persistent hypoxia requiring 4 L of nasal cannula oxygen As well as intermittent BiPAP, continue current management 08/11/2020; patient continues to require oxygen and intermittent BiPAP, awaiting IRU placement Versus home with home health and home oxygen, DC planning per case management 08/12/2020; awaiting IRU placement versus home with home health on home oxygen 08/14/2020-08/18/2020; patient continues to require 4 L of nasal cannula oxygen Discharge planning is in process, PT recommend acute inpatient rehab, awaiting insurance approval CM reports insurance denied inpatient rehab placement option 08/19/2020; I spoke with insurance physician Dr. Lopez, P2P and discussed patient's condition and the need for inpatient rehab However Dr. Macias reports that PT/OT evaluation and documentation does not reflect that patient can complete 3 hours of acute therapy in acute rehab. It reflects that he can hardly walk few steps/few feet. Advised to reevaluate if he meets the above requirements. Dr. Macias also reports that she can approve for subacute rehab placement. --08/20/2020 ;patient awaiting placement, inpatient rehab versus subacute versus home health DC planning per case management Brief history and hospital course; Patient with pneumothorax status post chest tube placement and removal continues to require 4 to 5 L of nasal cannula oxygen, initially IRU placement was considered, insurance did not approve, daughter is trying for reconsideration for IRU placement, patient pending placement versus home with home health when stable History Interval history: Have seen and examined the patient at the bedside patient feels slightly Continues to require 3 to 4 L nasal cannula oxygen Awaiting placement acute rehab versus subacute rehab versus home with home health Vital signs noted Hospitalist Physical - Constitutional Vitals: Temp Pulse Resp BP Pulse Ox 97.9 F 120 H 18 112/75 94 08/20/20 19:30 08/20/20 19:30 08/20/20 19:30 08/20/20 19:30 08/20/20 19:31 General appearance: Present: no acute distress, well-nourished - EENT Eyes: Present: PERRL, EOM intact - Neck Neck: Present: supple, normal ROM - Respiratory Respiratory effort: normal Respiratory: bilateral: diminished, negative: rales, rhonchi, wheezing - Cardiovascular Rhythm: regular Heart Sounds: Present: S1 & S2 - Extremities Extremities: no ischemia, pulses intact Peripheral Pulses: abnormal - Abdominal General gastrointestinal: deferred, soft, non-tender, non-distended, normal bowel sounds - Integumentary Integumentary: Present: clear, warm - Psychiatric Psychiatric: appropriate mood/affect, cooperative - Neurologic Neurologic: CNII-XII intact, moves all extremities HEART Score - HEART Score Troponin: Troponin T 0.015 ng/mL (0.00-0.029) 07/07/20 10:00 Results - Labs CBC & Chem 7: 08/02/20 05:55 08/12/20 18:34 Labs: Laboratory Last Values WBC 12.4 K/mm3 (4.5-11.0) H 08/02/20 05:55 RBC 3.85 M/mm3 (3.65-5.03) 08/02/20 05:55 Hgb 12.3 gm/dl (11.8-15.2) 08/02/20 05:55 Hct 37.9 % (35.5-45.6) 08/02/20 05:55 MCV 99 fl (84-94) H 08/02/20 05:55 MCH 32 pg (28-32) 08/02/20 05:55 MCHC 33 % (32-34) 08/02/20 05:55 RDW 16.9 % (13.2-15.2) H 08/02/20 05:55 Plt Count 267 K/mm3 (140-440) 08/02/20 05:55 Lymph % (Auto) 18.3 % (13.4-35.0) 08/02/20 05:55 [place] % (Auto) 9.7 % (0.0-7.3) H 08/02/20 05:55 Eos % (Auto) 3.3 % (0.0-4.3) 08/02/20 05:55 Baso % (Auto) 0.4 % (0.0-1.8) 08/02/20 05:55 Lymph # (Auto) 2.3 K/mm3 (1.2-5.4) 08/02/20 05:55 [place] # (Auto) 1.2 K/mm3 (0.0-0.8) H 08/02/20 05:55 Eos # (Auto) 0.4 K/mm3 (0.0-0.4) 08/02/20 05:55 Baso # (Auto) 0.1 K/mm3 (0.0-0.1) 08/02/20 05:55 Add Manual Diff Complete 07/13/20 08:31 Total Counted 100 07/13/20 08:31 Seg Neutrophils % 68.3 % (40.0-70.0) 08/02/20 05:55 Seg Neuts % (Manual) 96.0 % (40.0-70.0) H 07/13/20 08:31 Band Neutrophils % 0 % 07/13/20 08:31 Lymphocytes % (Manual) 2.0 % (13.4-35.0) L 07/13/20 08:31 Reactive Lymphs % (Man) 0 % 07/13/20 08:31 Monocytes % (Manual) 2.0 % (0.0-7.3) 07/13/20 08:31 Eosinophils % (Manual) 0 % (0.0-4.3) 07/13/20 08:31 Basophils % (Manual) 0 % (0.0-1.8) 07/13/20 08:31 Metamyelocytes % 0 % 07/13/20 08:31 Myelocytes % 0 % 07/13/20 08:31 Promyelocytes % 0 % 07/13/20 08:31 Blast Cells % 0 % 07/13/20 08:31 Nucleated RBC % Not Reportable 07/13/20 08:31 Seg Neutrophils # 8.5 K/mm3 (1.8-7.7) H 08/02/20 05:55 Seg Neutrophils # Man 20.4 K/mm3 (1.8-7.7) H 07/13/20 08:31 Band Neutrophils # 0.0 K/mm3 07/13/20 08:31 Lymphocytes # (Manual) 0.4 K/mm3 (1.2-5.4) L 07/13/20 08:31 Abs React Lymphs (Man) 0.0 K/mm3 07/13/20 08:31 Monocytes # (Manual) 0.4 K/mm3 (0.0-0.8) 07/13/20 08:31 Eosinophils # (Manual) 0.0 K/mm3 (0.0-0.4) 07/13/20 08:31 Basophils # (Manual) 0.0 K/mm3 (0.0-0.1) 07/13/20 08:31 Metamyelocytes # 0.0 K/mm3 07/13/20 08:31 Myelocytes # 0.0 K/mm3 07/13/20 08:31 Promyelocytes # 0.0 K/mm3 07/13/20 08:31 Blast Cells # 0.0 K/mm3 07/13/20 08:31 WBC Morphology Not Reportable 07/13/20 08:31 Hypersegmented Neuts Not Reportable 07/13/20 08:31 Hyposegmented Neuts Not Reportable 07/13/20 08:31 Hypogranular Neuts Not Reportable 07/13/20 08:31 Smudge Cells Not Reportable 07/13/20 08:31 Toxic Granulation Not Reportable 07/13/20 08:31 Toxic Vacuolation Not Reportable 07/13/20 08:31 Dohle Bodies Not Reportable 07/13/20 08:31 Pelger-Huet Anomaly Not Reportable 07/13/20 08:31 Jason Rods Not Reportable 07/13/20 08:31 Platelet Estimate Consistent w auto 07/13/20 08:31 Clumped Platelets Not Reportable 07/13/20 08:31 Plt Clumps, EDTA Not Reportable 07/13/20 08:31 Large Platelets Not Reportable 07/13/20 08:31 Giant Platelets Not Reportable 07/13/20 08:31 Platelet Satelliting Not Reportable 07/13/20 08:31 Plt Morphology Comment Not Reportable 07/13/20 08:31 RBC Morphology Not Reportable 07/13/20 08:31 Dimorphic RBCs Not Reportable 07/13/20 08:31 Polychromasia Not Reportable 07/13/20 08:31 Hypochromasia Not Reportable 07/13/20 08:31 Poikilocytosis Not Reportable 07/13/20 08:31 Anisocytosis Not Reportable 07/13/20 08:31 Microcytosis Not Reportable 07/13/20 08:31 Macrocytosis Not Reportable 07/13/20 08:31 Spherocytes Not Reportable 07/13/20 08:31 Pappenheimer Bodies Not Reportable 07/13/20 08:31 Sickle Cells Not Reportable 07/13/20 08:31 Target Cells Not Reportable 07/13/20 08:31 Tear Drop Cells Not Reportable 07/13/20 08:31 Ovalocytes Not Reportable 07/13/20 08:31 Stomatocytes Few 07/13/20 08:31 Helmet Cells Not Reportable 07/13/20 08:31 Sinclair-Van Meter Bodies Not Reportable 07/13/20 08:31 [place] Rings Not Reportable 07/13/20 08:31 Izabella Cells Not Reportable 07/13/20 08:31 Bite Cells Not Reportable 07/13/20 08:31 Crenated Cell Not Reportable 07/13/20 08:31 Elliptocytes Not Reportable 07/13/20 08:31 Acanthocytes (Spur) Not Reportable 07/13/20 08:31 Rouleaux Not Reportable 07/13/20 08:31 Hemoglobin C Crystals Not Reportable 07/13/20 08:31 Schistocytes Not Reportable 07/13/20 08:31 Malaria parasites Not Reportable 07/13/20 08:31 Josue Bodies Not Reportable 07/13/20 08:31 Hem Pathologist Commnt No 07/13/20 08:31 PT 11.8 Sec. (12.2-14.9) L 06/22/20 14:29 INR 0.88 (0.87-1.13) 06/22/20 14:29 APTT 23.5 Sec. (24.2-36.6) L 06/22/20 14:29 D-Dimer 1887.82 ng/mlDDU (0-234) H 05/20/20 08:16 Heparin Anti-Xa Level 0.37 U.I./ml (0.3-0.7) 07/02/20 16:08 ABG pH 7.437 (7.320-7.450) 08/11/20 18:43 POC ABG pCO2 51.0 mmHg (32.0-48.0) H 08/11/20 18:43 ABG pCO2 53.1 mm Hg 07/08/20 Unknown POC ABG pO2 84.9 mmHg (83-108) 08/11/20 18:43 ABG pO2 75.3 mm Hg (80.0-90.0) L 07/08/20 Unknown POC ABG HCO3 33.6 08/11/20 18:43 ABG HCO3 34.3 mmol/L (20.0-26.0) H 07/08/20 Unknown ABG O2 Saturation 96.5 % (95.0-99.0) 07/08/20 Unknown ABG O2 Content 13.5 (0.0-44) 07/08/20 Unknown POC ABG Base Excess 7.9 08/11/20 18:43 ABG Base Excess 8.7 mmol/L (-2.0-3.0) H 07/08/20 Unknown ABG Hemoglobin 13.8 (12.0-17.5) 08/11/20 18:43 ABG Oxyhemoglobin 94.6 (94-98) 08/11/20 18:43 ABG Carboxyhemoglobin 2.4 % (0.0-5.0) 07/08/20 Unknown ABG Methemoglobin 0.3 (0.0-1.5) 08/11/20 18:43 ABG Sodium 138.0 mmol/L (136.0-145.0) 08/11/20 18:43 ABG Potassium 3.4 mmol/L (3.40-4.50) 08/11/20 18:43 ABG Chloride 99.0 mmol/L (98-107) 08/11/20 18:43 ABG Glucose 149 mg/dL (65-95) H 08/11/20 18:43 Oxyhemoglobin 93.7 % (95.0-99.0) L 07/08/20 Unknown Carboxyhemoglobin 1.2 (0.5-1.5) 08/11/20 18:43 FiO2 50.0 08/11/20 18:43 Sodium 139 mmol/L (137-145) 08/12/20 18:34 Potassium 3.7 mmol/L (3.6-5.0) 08/12/20 18:34 Chloride 97.2 mmol/L (98-107) L 08/12/20 18:34 Carbon Dioxide 28 mmol/L (22-30) 08/12/20 18:34 Anion Gap 18 mmol/L 08/12/20 18:34 BUN 15 mg/dL (9-20) 08/12/20 18:34 Creatinine 0.5 mg/dL (0.8-1.3) L 08/12/20 18:34 Estimated GFR > 60 ml/min 08/12/20 18:34 BUN/Creatinine Ratio 30 % 08/12/20 18:34 Glucose 132 mg/dL (75-100) H 08/12/20 18:34 POC Glucose 133 mg/dL (70-105) H 08/20/20 15:58 Lactic Acid 0.80 mmol/L (0.7-2.0) 07/13/20 15:45 Calcium 9.2 mg/dL (8.4-10.2) 08/12/20 18:34 Phosphorus 3.10 mg/dL (2.5-4.5) 06/15/20 04:00 Magnesium 2.00 mg/dL (1.7-2.3) 07/24/20 05:05 Ferritin 1496.0 ng/mL (30.0-300.0) H 06/14/20 11:50 Total Bilirubin 0.30 mg/dL (0.1-1.2) 08/02/20 05:55 Direct Bilirubin 0.6 mg/dL (0-0.2) H 05/11/20 07:30 Indirect Bilirubin 0.9 mg/dL 05/11/20 07:30 AST 37 units/L (5-40) 08/02/20 05:55 ALT 118 units/L (7-56) H 08/02/20 05:55 Alkaline Phosphatase 88 units/L (35-129) 08/02/20 05:55 Lactate Dehydrogenase 705 units/L (91-180) H 05/20/20 08:16 Troponin T 0.015 ng/mL (0.00-0.029) 07/07/20 10:00 C-Reactive Protein 3.10 mg/dL (0.00-1.30) H 05/20/20 08:16 Total Protein 6.4 g/dL (6.3-8.2) 08/02/20 05:55 Albumin 3.3 g/dL (3.9-5) L 08/02/20 05:55 Albumin/Globulin Ratio 1.1 % 08/02/20 05:55 Triglycerides 452 mg/dL (2-149) H 06/30/20 07:00 Lipase 86 units/L (13-60) H 06/29/20 09:36 Procalcitonin 2.15 ng/mL (<0.15) 07/15/20 05:31 Arterial Blood Glucose 149 mg/dL (65-95) H 08/11/20 18:43 Arterial Blood Ionized Calcium 4.8 mg/dL (4.6-5.3) 08/11/20 18:43 Urine Color Fauzia (Yellow) 05/10/20 Unknown Urine Turbidity Clear (Clear) 05/10/20 Unknown Urine pH 5.0 (5.0-7.0) 05/10/20 Unknown Ur Specific [place] 1.019 (1.003-1.030) 05/10/20 Unknown Urine Protein 100 mg/dl mg/dL (Negative) 05/10/20 Unknown Urine Glucose (UA) Neg mg/dL (Negative) 05/10/20 Unknown Urine Ketones Neg mg/dL (Negative) 05/10/20 Unknown Urine Blood Lg (Negative) 05/10/20 Unknown Urine Nitrite Neg (Negative) 05/10/20 Unknown Urine Bilirubin Neg (Negative) 05/10/20 Unknown Urine Urobilinogen 2.0 mg/dL (<2.0) 05/10/20 Unknown Ur Leukocyte Esterase Neg (Negative) 05/10/20 Unknown Urine WBC (Auto) 11.0 /HPF (0.0-6.0) H 05/10/20 Unknown Urine RBC (Auto) 2.0 /HPF (0.0-6.0) 05/10/20 Unknown U Epithel Cells (Auto) 1.0 /HPF (0-13.0) 05/10/20 Unknown Urine Bacteria (Auto) 1+ /HPF (Negative) 05/10/20 Unknown Urine Mucus Few /HPF 05/10/20 Unknown Plasma/Serum Alcohol < 0.01 % (0-0.07) 05/09/20 14:20 Coronavirus (PCR) Negative (Negative) 08/06/20 09:36 Hepatitis A Ab Total Nonreactive (Nonreactive) 07/09/20 Unknown Hep B Core Total Ab Nonreactive (Nonreactive) 07/09/20 Unknown Hepatitis C RNA Quant See scanned result 07/09/20 Unknown SARS-CoV-2 IgG Ab Reactive (NonReactive) A 05/11/20 07:30 Blood Type B POSITIVE 06/21/20 14:18 Antibody Screen Negative 06/21/20 14:18 Crossmatch See Detail 06/21/20 14:18 - Diagnostic Impressions Diagnostic Impressions: Echocardiogram 05/20/20 13:02 Transthoracic Echocardiogram Indication: CHF BP: 97/73 Conclusions *The study quality is technically very difficult and limited. *The left ventricular chamber size, wall thickness and systolic function are within normal limits. There are no wall motion abnormalities observed. Ejection fraction is normal. *The estimated ejection fraction is 60-65%. *The pericardium appears normal. Findings Procedure Info: The study quality is technically difficult. Left Ventricle: The left ventricular chamber size, wall thickness and systolic function are within normal limits. There are no wall motion abnormalities observed. Ejection fraction is normal. The estimated ejection fraction is 60-65%. Abnormal left ventricular diastolic filling is observed, consistent with impaired relaxation. Left Atrium: The left atrium is normal in size with no visual thrombus identified. Right Ventricle: The right ventricle is not well visualized. Right Atrium: The right atrium is not well visualized. Aortic Valve: The aortic valve is trileaflet. The leaflets are thin with normal excursion. There is no aortic stenosis or regurgitation present. Mitral Valve: The mitral valve appears normal in structure and function. Tricuspid Valve: The tricuspid valve appears normal in structure and function. Unable to estimate the right ventricular systolic pressure. Pulmonic Valve: The pulmonic valve is not well visualized. There is no evidence of pulmonic regurgitation. There is no pulmonic stenosis. Pericardium: The pericardium appears normal. Pulmonary Artery: The main pulmonary artery is not well visualized. Venous: The inferior vena cava appears normal in size. Measurements Chambers 2D Name Value Normal Range IVSd (2D) 0.83 cm (0.6 - 1.1) LVPWd (2D) 0.83 cm (0.6 - 1.1) LVIDd (2D) 3.88 cm (3.7 - 5.6) LVIDs (2D) 2.46 cm (2 - 3.8) LV FS (2D) 36.52 % - EF Teichholz (2D) 66.97 % - Ao root diameter (2D) 3.47 cm (2 - 3.7) Volumes/Mass Name Value Normal Range LA ESV SP 4CH (A/L) 22.4 ml - LA ESV SP 2CH (A/L) 22.89 ml - LA ESV BP (A/L) 23.06 ml - LA ESV SP 4CH (MOD) 21.09 ml - LA ESV SP 2CH (MOD) 22.44 ml - Diastolic/Systolic Function Name Value Normal Range MV E-wave Vmax 0.48 m/sec - MV deceleration time 156.3 msec - MV A-wave Vmax 0.59 m/sec - MV E:A ratio 0.81 ratio - Aortic Valve Name Value Normal Range AV Vmax 0.97 m/sec - AV VTI 14.49 cm - AV peak gradient 3.73 mmHg - AV mean gradient 1.89 mmHg - LVOT diameter 2.09 cm - LVOT Vmax 0.72 m/sec - LVOT VTI 10.21 cm - LVOT peak gradient 2.05 mmHg - LVOT mean gradient 1.03 mmHg - SV LVOT 35.17 ml - INNA (continuity Vmax) 2.55 cm2 - INNA (continuity VTI) 2.43 cm2 - Tricuspid Valve Name Value Normal Range TV E-wave Vmax 0.37 m/sec - Pulmonic Valve/Qp:Qs Name Value Normal Range PV Vmax 0.72 m/sec - PV peak gradient 2.06 mmHg - RVOT Vmax 0.85 m/sec - RVOT VTI 9.89 cm - RVOT peak gradient 2.9 mmHg - PV acceleration time 72.31 msec - Cantor/IV: Voiding Method Urinal IV Catheter Type [Right Wrist] INT / Saline Lock IV Catheter Type [Right Upper Peripheral IV arm] IV Catheter Type [Right CVL Internal Jugular] IV Catheter Type [Right Peripheral IV Forearm] IV Catheter Type [Left Forearm INT / Saline Lock ] IV Catheter Type [Left Wrist] INT / Saline Lock IV Catheter Type [Right Hand] INT / Saline Lock IV Catheter Type [Left Hand] INT / Saline Lock IV Catheter Type [Left Peripheral IV Antecubital] Active Medications - Current Medications Current Medications: Generic Name Dose Route Start Last Admin Trade Name Freq PRN Reason Stop Dose Admin Acetaminophen 650 mg 08/07/20 10:06 08/13/20 16:05 Acetaminophen 325 Mg Tab PO 650 mg Q4H PRN Administration Pain, Mild (1-3) Bisacodyl 10 mg 07/14/20 11:00 Bisacodyl 10 Mg Rect Supp RI BID PRN Laxative Effect Enoxaparin Sodium 40 mg 07/29/20 22:00 08/19/20 21:11 Enoxaparin 40 Mg/0.4 Ml Inj SUB-Q 40 mg QDAY@2200 DESIRE Administration Protocol Folic Acid 1 mg 05/09/20 15:36 08/20/20 09:19 Folic Acid 1 Mg Tab PO 1 mg QDAY DESIRE Administration Guaifenesin 600 mg 07/19/20 23:00 08/20/20 09:19 Guaifenesin Er 600 Mg Tab PO 600 mg BID DESIRE Administration Hydrophilic Ointment 1 applic 05/21/20 20:33 Lip Therapy Vaseline TP Q2HR PRN Dry Lips Insulin Human Lispro 0 unit 07/31/20 07:30 08/20/20 17:00 Insulin Lispro 100 Unit/Ml SUB-Q Not Given [facility] Protocol Lansoprazole 30 mg 06/28/20 10:00 08/20/20 09:19 Lansoprazole 30 Mg Solutab FEEDTUBE 30 mg QDAY DESIRE Administration Metoprolol Tartrate 5 mg 07/02/20 17:17 08/13/20 14:44 Metoprolol Tartrate 5 Mg/5 Ml Inj IV 5 mg Q6HR PRN Administration Tachyarrhythmias Metoprolol Tartrate 25 mg 08/12/20 12:00 08/20/20 09:19 Metoprolol Tartrate 25 Mg Tab PO 25 mg BID DESIRE Administration Multi-Ingred Cream/Lotion/Oil/Oint 1 applic 05/21/20 20:33 Mineral Oil/Petrolatum, White Ophth Oint 3.5 Gm OU Q4HR PRN Dry Eye(s) Olanzapine 5 mg 07/17/20 22:00 08/19/20 21:10 Olanzapine 5 Mg Tab PO 5 mg QHS DESIRE Administration Phenobarbital 32.4 mg 07/04/20 22:00 08/20/20 09:19 Phenobarbital 32.4 Mg Tab PO 32.4 mg BID DESIRE Administration Pseudoephedrine/Acetam/Chlorphenir 10 ml 08/18/20 15:45 08/19/20 14:30 Guaifenesin/Codeine 100-10mg Oral Liqd 5 Ml PO 10 ml Q4H PRN Administration Cough Quetiapine Fumarate 200 mg 07/16/20 10:00 08/20/20 09:19 Quetiapine 200 Mg Tab PO 200 mg QAM DESIRE Administration Senna 17.2 mg 07/14/20 11:00 08/03/20 16:46 Sennosides 8.6 Mg Tab PO 8.6 mg BID PRN Administration Laxative Effect Nutrition/Malnutrition Assess - Dietary Evaluation Nutrition/Malnutrition Findings: Nutrition Notes Start: 05/17/20 14:10 Freq: Status: Active Protocol: Document 08/18/20 12:39 CW (Rec: 08/18/20 12:53 CW [id number]) Nutrition Notes Initial or Follow up Reassessment Current Diagnosis Acute Kidney Injury,Decubitus( Pressure Ulcer),Sepsis, Respiratory Failure Other Pertinent Diagnosis Bilat pneu, COVID-19 (-), Colonic pseudoobstuction, EtOH dependence Current Diet Regular diet Labs/Tests Reviewed Pertinent Medications Reviewed Height 6 ft Weight 99.5 kg Usual Body Weight 118 kg [place] Body Weight (kg) 80.90 BMI 29.7 Weight change and time frame Weight gain noted Weight Status Overweight Subjective/Other Information F/u for intakes, Sammy and ONS tolerance. Pt reports consuming 100% of meals and ONS. R/O good appetite. Pt denies N/V/D/C. Percent of energy/protein needs met: 100%/100% Burn Absent Trauma Absent GI Symptoms None Current % PO Good (75-100%) Minimum of two criteria Yes Interpretation of Weight Loss (severe) >5% in 1 month Muscle Mass Mild Depletion (non-severe) #3 Nutrition Diagnosis Malnutrition Diagnosis Progress(for reassessment Continues documentation) #2 Nutrition Diagnosis Increased nutrient needs ( specify in comment below) Diagnosis Progress(for reassessment Continues documentation) Is patient on ventilator? No Is Patient Ambulatory and/or Out of Bed No [facility] 2269.308 Kcal/Kg value to use for calculation 21 Approximate Energy Requirements Using 2090 kcal/Kg Calculation Used for Recommendations Kcal/kg Additional Notes Protein: 108-135 g (1.2-1.5 g/ kg AdBW 90 kg) Fluid: 1ml/kcal Nutrition Intervention Change Diet Order: Continue diet Add Supplement/Snack (indicate name/kcal Ensure High Protein daily /protein ) Sammy BID Provides kCal: 350 Provides Protein (gm) 21 Goal #1 Meet at least 75% protein and energy needs via PO Goal #2 ONS tolerance Goal #3 Intake of Sammy BID Anticipated Discharge Needs: Regular dier, Sammy BID and Ensure High Protein until wound healed Follow-Up By: 08/25/20 Additional Comments F/u stable intakes, ONS and Sammy tolerance/intake
[2020-08-20] MEDS: ENOXAPARIN 40 MG/0.4 ML INJ SUB-Q SCH (21:45)
[2020-08-21] MEDS: INSULIN LISPRO 100 UNIT/ML SUB-Q SCH ×4 (10:35→22:11)
[2020-08-21] MEDS: METOPROLOL TARTRATE 25 MG TAB PO SCH ×2 (10:36→22:09)
[2020-08-21] MEDS: FOLIC ACID 1 MG TAB PO SCH (10:36)
[2020-08-21] MEDS: QUEtiapine 200 MG TAB PO SCH (10:37)
[2020-08-21] MEDS: PHENobarbital 32.4 MG TAB PO SCH ×2 (10:37→22:08)
[2020-08-21] MEDS: guaiFENesin ER 600 MG TAB PO SCH ×2 (10:37→22:08)
[2020-08-21] MEDS: LANSOPRAZOLE 30 MG SOLUTAB FEEDTUBE SCH (10:37)
--- NOTE | 2020-08-21 15:24 | Progress Note ---
Assessment and Plan Assessment and plan: Positive COVID-19 test; 05/10/2020 Negative COVID-19 test; 06/30/2020 --Acute hypoxemic resp failure; oxygen dependent on 4 L NC, requiring intermittent BiPAP Due to COVID-19 pneumonia --Persistent sinus tachycardia: Multifactorial We will closely monitor --Severe COVID-19 bilateral pneumonia Coronavirus protocol: Completed steroids and remdesivir therapy, isolation precautions, Received management per COVID-19 protocol Repeat ivory PCR test negative on 06/30/2020 Isolation discontinued --Pneumothorax status post right chest tube Chest tube removed 07/23/2020 Post removal chest x-ray no pneumothorax Patient is requiring 3 to 4 L nasal cannula And intermittent BiPAP --Severe hypokalemia; resolved --Elevated D-dimers; Patient had CTA chest ; negative for PE, patient already had lower extremity venous Doppler which was negative for DVT --Pseudomonas bacteremia; ID following, completed cefepime Monitor off antibiotics --Severe sepsis/septic shock, monitor off pressors Completed cefepime, monitor off antibiotics -- Acute kidney injury (SEN) , likely vasomotor nephropathy Resolved, avoid nephrotoxins --Acute on chronic anemia Guaiac test positive, GI evaluated the patient Patient H&H is normal range now Hb 11.8 -- Elevated liver function tests; resolved LFTs within normal limits --Colonic distention GI evaluated colonic distention resolved recommend stool softeners -- DVT prophylaxis On Lovenox CTA chest negative for PE,LE DVT negative, therapeutic Lovenox DC'd Changed to prophylactic Lovenox Patient is medically stable for discharge Disposition; insurance did not approve IRU Possible subacute rehab placement DC planning per case management Plan of care reviewed with the patient and his nurse Brief history: 50 YO Male with Obesity, ETOH Dependence presents to ED for evaluation. Patient states that he has experienced shortness of breath, generalized weakness, fatigue, malaise, body aches, decreased exercise tolerance over the past 5 days with persistently worsening symptoms over the same timeframe. EMS was notified and upon arrival the patient was found to be in distress with a pulse oximetry of 76% on room air as well as fever to 103 F. Patient was placed on supplemental oxygen and subsequently transported to [facility] for further care and evaluation. Patient seen and evaluated in the emergency department. All lab and imaging studies reviewed. Patient underwent chest x-ray and was found to have bilateral pneumonia. Patient also found to have a pulse oximetry of 86% on 4 L nasal cannula. Patient initiated on a high flow submental oxygen with improvement of pulse oximetry. Patient admitted to medical floor and initiated on pneumonia protocol as well as COVID-19 protocol. Patient also found to have acute kidney injury as well as elevated liver function test suspected secondary to alcohol dependence. Patient reports being diagnosed with coronavirus 2 days ago. No prior admission for review. 07/23/2020; patient remains on high flow oxygen, wean oxygen as tolerated, severe hypokalemia Replenish per protocol monitor levels 07/24/2020; patient had chest tube removal yesterday 07/23/2019 and, post removal chest x-ray no pneumothorax no acute abnormalities Patient feels slightly better continues to require high flow oxygen Wean as tolerated, physical and occupational therapy, DC planning 07/26/2020; patient on 3 L nasal cannula oxygen, patient feels better 07/27/2020; patient was saturating well on 3 L of nasal cannula oxygen, however today patient is on high flow oxygen 15 L Complains of some congestion, wean oxygen levels to 3-5 as tolerated Discharge planning LTAC has refused patient,Possible home with home health versus placement when medically stable 07/28/2020; continue to wean oxygen, patient is on 10 L, awaiting placement 07/29/2020; continues to be on 10 L nasal cannula oxygen, wean as tolerated Patient is on empiric therapeutic dose Lovenox, due to elevated D-dimers Patient is stable for CTA chest today, follow the report and adjust Lovenox as needed DC planning per case management, with pending placement 07/30/2020; patient feels slightly better, oxygen reduced to 8 L of nasal cannula Will check PT OT, pending placement 07/31/2020 :Patient on 8 L of nasal cannula oxygen 08/03/2020; patient's oxygen requirement has come down to 3-4 and half liters nasal cannula Will try to wean oxygen as tolerated, respiratory therapist assisting to reach the goal Possible discharge home in 1 to 2 days if stable Plan of care reviewed with the patient and his nurse 08/04/2020; patient is requiring 3 to 4 L nasal cannula oxygen, case management to set up home oxygen Patient is hemodynamically and clinically stable for discharge, pending placement IRU [facility] And of care reviewed with the patient and his nurse as well as the case management 08/05/2020 ; COVID-19 test requested , patient is hemodynamically and clinically stable for discharge Patient is requiring 4 L of nasal cannula oxygen . 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 not approved inpatient rehab placement for this patient Will evaluate for home oxygen, set up home oxygen if eligible, and plan discharge home with home health when patient is hemodynamically stable 08/10/2020; patient continues to have persistent tachycardia, and persistent hypoxia requiring 4 L of nasal cannula oxygen As well as intermittent BiPAP, continue current management 08/11/2020; patient continues to require oxygen and intermittent BiPAP, awaiting IRU placement Versus home with home health and home oxygen, DC planning per case management 08/12/2020; awaiting IRU placement versus home with home health on home oxygen 08/14/2020-08/18/2020; patient continues to require 4 L of nasal cannula oxygen Discharge planning is in process, PT recommend acute inpatient rehab, awaiting insurance approval CM reports insurance denied inpatient rehab placement option 08/19/2020; I spoke with insurance physician Dr. Lopez, P2P and discussed patient's condition and the need for inpatient rehab However Dr. Macias reports that PT/OT evaluation and documentation do not reflect that patient can complete 3 hours of acute therapy in acute rehab. It reflects that he can hardly walk few steps/few feet. Advised to reevaluate if he meets the above requirements. Dr. Macias also reports that she can approve for subacute rehab placement. --08/20/2020 ;patient awaiting placement, inpatient rehab versus subacute versus home health DC planning per case management 08/21/2020; pending subacute rehab placement History Interval history: I have seen and examined the patient at the bedside this morning Patient remains on 2 to 4 L of nasal cannula oxygen Feels slightly better No new complaints Awaiting placement Hospitalist Physical - Constitutional Vitals: Temp Pulse Resp BP Pulse Ox 98.4 F 79 18 112/77 96 08/21/20 09:05 08/21/20 10:00 08/21/20 10:00 08/21/20 10:36 08/21/20 10:00 General appearance: Present: no acute distress, well-nourished - EENT Eyes: Present: PERRL, EOM intact - Neck Neck: Present: supple, normal ROM - Respiratory Respiratory effort: normal Respiratory: bilateral: diminished, negative: rales, rhonchi, wheezing - Cardiovascular Rhythm: regular Heart Sounds: Present: S1 & S2 - Extremities Extremities: no ischemia, No edema - Abdominal General gastrointestinal: soft, non-tender, non-distended, normal bowel sounds - Integumentary Integumentary: Present: clear, warm - Psychiatric Psychiatric: appropriate mood/affect, cooperative - Neurologic Neurologic: moves all extremities HEART Score - HEART Score Troponin: Troponin T 0.015 ng/mL (0.00-0.029) 07/07/20 10:00 Results - Labs CBC & Chem 7: 08/02/20 05:55 08/12/20 18:34 Labs: Laboratory Last Values WBC 12.4 K/mm3 (4.5-11.0) H 08/02/20 05:55 RBC 3.85 M/mm3 (3.65-5.03) 08/02/20 05:55 Hgb 12.3 gm/dl (11.8-15.2) 08/02/20 05:55 Hct 37.9 % (35.5-45.6) 08/02/20 05:55 MCV 99 fl (84-94) H 08/02/20 05:55 MCH 32 pg (28-32) 08/02/20 05:55 MCHC 33 % (32-34) 08/02/20 05:55 RDW 16.9 % (13.2-15.2) H 08/02/20 05:55 Plt Count 267 K/mm3 (140-440) 08/02/20 05:55 Lymph % (Auto) 18.3 % (13.4-35.0) 08/02/20 05:55 Ballard % (Auto) 9.7 % (0.0-7.3) H 08/02/20 05:55 Eos % (Auto) 3.3 % (0.0-4.3) 08/02/20 05:55 Baso % (Auto) 0.4 % (0.0-1.8) 08/02/20 05:55 Lymph # (Auto) 2.3 K/mm3 (1.2-5.4) 08/02/20 05:55 Ballard # (Auto) 1.2 K/mm3 (0.0-0.8) H 08/02/20 05:55 Eos # (Auto) 0.4 K/mm3 (0.0-0.4) 08/02/20 05:55 Baso # (Auto) 0.1 K/mm3 (0.0-0.1) 08/02/20 05:55 Add Manual Diff Complete 07/13/20 08:31 Total Counted 100 07/13/20 08:31 Seg Neutrophils % 68.3 % (40.0-70.0) 08/02/20 05:55 Seg Neuts % (Manual) 96.0 % (40.0-70.0) H 07/13/20 08:31 Band Neutrophils % 0 % 07/13/20 08:31 Lymphocytes % (Manual) 2.0 % (13.4-35.0) L 07/13/20 08:31 Reactive Lymphs % (Man) 0 % 07/13/20 08:31 Monocytes % (Manual) 2.0 % (0.0-7.3) 07/13/20 08:31 Eosinophils % (Manual) 0 % (0.0-4.3) 07/13/20 08:31 Basophils % (Manual) 0 % (0.0-1.8) 07/13/20 08:31 Metamyelocytes % 0 % 07/13/20 08:31 Myelocytes % 0 % 07/13/20 08:31 Promyelocytes % 0 % 07/13/20 08:31 Blast Cells % 0 % 07/13/20 08:31 Nucleated RBC % Not Reportable 07/13/20 08:31 Seg Neutrophils # 8.5 K/mm3 (1.8-7.7) H 08/02/20 05:55 Seg Neutrophils # Man 20.4 K/mm3 (1.8-7.7) H 07/13/20 08:31 Band Neutrophils # 0.0 K/mm3 07/13/20 08:31 Lymphocytes # (Manual) 0.4 K/mm3 (1.2-5.4) L 07/13/20 08:31 Abs React Lymphs (Man) 0.0 K/mm3 07/13/20 08:31 Monocytes # (Manual) 0.4 K/mm3 (0.0-0.8) 07/13/20 08:31 Eosinophils # (Manual) 0.0 K/mm3 (0.0-0.4) 07/13/20 08:31 Basophils # (Manual) 0.0 K/mm3 (0.0-0.1) 07/13/20 08:31 Metamyelocytes # 0.0 K/mm3 07/13/20 08:31 Myelocytes # 0.0 K/mm3 07/13/20 08:31 Promyelocytes # 0.0 K/mm3 07/13/20 08:31 Blast Cells # 0.0 K/mm3 07/13/20 08:31 WBC Morphology Not Reportable 07/13/20 08:31 Hypersegmented Neuts Not Reportable 07/13/20 08:31 Hyposegmented Neuts Not Reportable 07/13/20 08:31 Hypogranular Neuts Not Reportable 07/13/20 08:31 Smudge Cells Not Reportable 07/13/20 08:31 Toxic Granulation Not Reportable 07/13/20 08:31 Toxic Vacuolation Not Reportable 07/13/20 08:31 Dohle Bodies Not Reportable 07/13/20 08:31 Pelger-Huet Anomaly Not Reportable 07/13/20 08:31 Jason Rods Not Reportable 07/13/20 08:31 Platelet Estimate Consistent w auto 07/13/20 08:31 Clumped Platelets Not Reportable 07/13/20 08:31 Plt Clumps, EDTA Not Reportable 07/13/20 08:31 Large Platelets Not Reportable 07/13/20 08:31 Giant Platelets Not Reportable 07/13/20 08:31 Platelet Satelliting Not Reportable 07/13/20 08:31 Plt Morphology Comment Not Reportable 07/13/20 08:31 RBC Morphology Not Reportable 07/13/20 08:31 Dimorphic RBCs Not Reportable 07/13/20 08:31 Polychromasia Not Reportable 07/13/20 08:31 Hypochromasia Not Reportable 07/13/20 08:31 Poikilocytosis Not Reportable 07/13/20 08:31 Anisocytosis Not Reportable 07/13/20 08:31 Microcytosis Not Reportable 07/13/20 08:31 Macrocytosis Not Reportable 07/13/20 08:31 Spherocytes Not Reportable 07/13/20 08:31 Pappenheimer Bodies Not Reportable 07/13/20 08:31 Sickle Cells Not Reportable 07/13/20 08:31 Target Cells Not Reportable 07/13/20 08:31 Tear Drop Cells Not Reportable 07/13/20 08:31 Ovalocytes Not Reportable 07/13/20 08:31 Stomatocytes Few 07/13/20 08:31 Helmet Cells Not Reportable 07/13/20 08:31 Sinclair-Mcdermott Bodies Not Reportable 07/13/20 08:31 Magazine Rings Not Reportable 07/13/20 08:31 Izabella Cells Not Reportable 07/13/20 08:31 Bite Cells Not Reportable 07/13/20 08:31 Crenated Cell Not Reportable 07/13/20 08:31 Elliptocytes Not Reportable 07/13/20 08:31 Acanthocytes (Spur) Not Reportable 07/13/20 08:31 Rouleaux Not Reportable 07/13/20 08:31 Hemoglobin C Crystals Not Reportable 07/13/20 08:31 Schistocytes Not Reportable 07/13/20 08:31 Malaria parasites Not Reportable 07/13/20 08:31 Josue Bodies Not Reportable 07/13/20 08:31 Hem Pathologist Commnt No 07/13/20 08:31 PT 11.8 Sec. (12.2-14.9) L 06/22/20 14:29 INR 0.88 (0.87-1.13) 06/22/20 14:29 APTT 23.5 Sec. (24.2-36.6) L 06/22/20 14:29 D-Dimer 1887.82 ng/mlDDU (0-234) H 05/20/20 08:16 Heparin Anti-Xa Level 0.37 U.I./ml (0.3-0.7) 07/02/20 16:08 ABG pH 7.437 (7.320-7.450) 08/11/20 18:43 POC ABG pCO2 51.0 mmHg (32.0-48.0) H 08/11/20 18:43 ABG pCO2 53.1 mm Hg 07/08/20 Unknown POC ABG pO2 84.9 mmHg (83-108) 08/11/20 18:43 ABG pO2 75.3 mm Hg (80.0-90.0) L 07/08/20 Unknown POC ABG HCO3 33.6 08/11/20 18:43 ABG HCO3 34.3 mmol/L (20.0-26.0) H 07/08/20 Unknown ABG O2 Saturation 96.5 % (95.0-99.0) 07/08/20 Unknown ABG O2 Content 13.5 (0.0-44) 07/08/20 Unknown POC ABG Base Excess 7.9 08/11/20 18:43 ABG Base Excess 8.7 mmol/L (-2.0-3.0) H 07/08/20 Unknown ABG Hemoglobin 13.8 (12.0-17.5) 08/11/20 18:43 ABG Oxyhemoglobin 94.6 (94-98) 08/11/20 18:43 ABG Carboxyhemoglobin 2.4 % (0.0-5.0) 07/08/20 Unknown ABG Methemoglobin 0.3 (0.0-1.5) 08/11/20 18:43 ABG Sodium 138.0 mmol/L (136.0-145.0) 08/11/20 18:43 ABG Potassium 3.4 mmol/L (3.40-4.50) 08/11/20 18:43 ABG Chloride 99.0 mmol/L (98-107) 08/11/20 18:43 ABG Glucose 149 mg/dL (65-95) H 08/11/20 18:43 Oxyhemoglobin 93.7 % (95.0-99.0) L 07/08/20 Unknown Carboxyhemoglobin 1.2 (0.5-1.5) 08/11/20 18:43 FiO2 50.0 08/11/20 18:43 Sodium 139 mmol/L (137-145) 08/12/20 18:34 Potassium 3.7 mmol/L (3.6-5.0) 08/12/20 18:34 Chloride 97.2 mmol/L (98-107) L 08/12/20 18:34 Carbon Dioxide 28 mmol/L (22-30) 08/12/20 18:34 Anion Gap 18 mmol/L 08/12/20 18:34 BUN 15 mg/dL (9-20) 08/12/20 18:34 Creatinine 0.5 mg/dL (0.8-1.3) L 08/12/20 18:34 Estimated GFR > 60 ml/min 08/12/20 18:34 BUN/Creatinine Ratio 30 % 08/12/20 18:34 Glucose 132 mg/dL (75-100) H 08/12/20 18:34 POC Glucose 135 mg/dL (70-105) H 08/21/20 11:42 Lactic Acid 0.80 mmol/L (0.7-2.0) 07/13/20 15:45 Calcium 9.2 mg/dL (8.4-10.2) 08/12/20 18:34 Phosphorus 3.10 mg/dL (2.5-4.5) 06/15/20 04:00 Magnesium 2.00 mg/dL (1.7-2.3) 07/24/20 05:05 Ferritin 1496.0 ng/mL (30.0-300.0) H 06/14/20 11:50 Total Bilirubin 0.30 mg/dL (0.1-1.2) 08/02/20 05:55 Direct Bilirubin 0.6 mg/dL (0-0.2) H 05/11/20 07:30 Indirect Bilirubin 0.9 mg/dL 05/11/20 07:30 AST 37 units/L (5-40) 08/02/20 05:55 ALT 118 units/L (7-56) H 08/02/20 05:55 Alkaline Phosphatase 88 units/L (35-129) 08/02/20 05:55 Lactate Dehydrogenase 705 units/L (91-180) H 05/20/20 08:16 Troponin T 0.015 ng/mL (0.00-0.029) 07/07/20 10:00 C-Reactive Protein 3.10 mg/dL (0.00-1.30) H 05/20/20 08:16 Total Protein 6.4 g/dL (6.3-8.2) 08/02/20 05:55 Albumin 3.3 g/dL (3.9-5) L 08/02/20 05:55 Albumin/Globulin Ratio 1.1 % 08/02/20 05:55 Triglycerides 452 mg/dL (2-149) H 06/30/20 07:00 Lipase 86 units/L (13-60) H 06/29/20 09:36 Procalcitonin 2.15 ng/mL (<0.15) 07/15/20 05:31 Arterial Blood Glucose 149 mg/dL (65-95) H 08/11/20 18:43 Arterial Blood Ionized Calcium 4.8 mg/dL (4.6-5.3) 08/11/20 18:43 Urine Color Fauzia (Yellow) 05/10/20 Unknown Urine Turbidity Clear (Clear) 05/10/20 Unknown Urine pH 5.0 (5.0-7.0) 05/10/20 Unknown Ur Specific [place] 1.019 (1.003-1.030) 05/10/20 Unknown Urine Protein 100 mg/dl mg/dL (Negative) 05/10/20 Unknown Urine Glucose (UA) Neg mg/dL (Negative) 05/10/20 Unknown Urine Ketones Neg mg/dL (Negative) 05/10/20 Unknown Urine Blood Lg (Negative) 05/10/20 Unknown Urine Nitrite Neg (Negative) 05/10/20 Unknown Urine Bilirubin Neg (Negative) 05/10/20 Unknown Urine Urobilinogen 2.0 mg/dL (<2.0) 05/10/20 Unknown Ur Leukocyte Esterase Neg (Negative) 05/10/20 Unknown Urine WBC (Auto) 11.0 /HPF (0.0-6.0) H 05/10/20 Unknown Urine RBC (Auto) 2.0 /HPF (0.0-6.0) 05/10/20 Unknown U Epithel Cells (Auto) 1.0 /HPF (0-13.0) 05/10/20 Unknown Urine Bacteria (Auto) 1+ /HPF (Negative) 05/10/20 Unknown Urine Mucus Few /HPF 05/10/20 Unknown Plasma/Serum Alcohol < 0.01 % (0-0.07) 05/09/20 14:20 Coronavirus (PCR) Negative (Negative) 08/06/20 09:36 Hepatitis A Ab Total Nonreactive (Nonreactive) 07/09/20 Unknown Hep B Core Total Ab Nonreactive (Nonreactive) 07/09/20 Unknown Hepatitis C RNA Quant See scanned result 07/09/20 Unknown SARS-CoV-2 IgG Ab Reactive (NonReactive) A 05/11/20 07:30 Blood Type B POSITIVE 06/21/20 14:18 Antibody Screen Negative 06/21/20 14:18 Crossmatch See Detail 06/21/20 14:18 - Diagnostic Impressions Diagnostic Impressions: Echocardiogram 05/20/20 13:02 Transthoracic Echocardiogram Indication: CHF BP: 97/73 Conclusions *The study quality is technically very difficult and limited. *The left ventricular chamber size, wall thickness and systolic function are within normal limits. There are no wall motion abnormalities observed. Ejection fraction is normal. *The estimated ejection fraction is 60-65%. *The pericardium appears normal. Findings Procedure Info: The study quality is technically difficult. Left Ventricle: The left ventricular chamber size, wall thickness and systolic function are within normal limits. There are no wall motion abnormalities observed. Ejection fraction is normal. The estimated ejection fraction is 60-65%. Abnormal left ventricular diastolic filling is observed, consistent with impaired relaxation. Left Atrium: The left atrium is normal in size with no visual thrombus identified. Right Ventricle: The right ventricle is not well visualized. Right Atrium: The right atrium is not well visualized. Aortic Valve: The aortic valve is trileaflet. The leaflets are thin with normal excursion. There is no aortic stenosis or regurgitation present. Mitral Valve: The mitral valve appears normal in structure and function. Tricuspid Valve: The tricuspid valve appears normal in structure and function. Unable to estimate the right ventricular systolic pressure. Pulmonic Valve: The pulmonic valve is not well visualized. There is no evidence of pulmonic regurgitation. There is no pulmonic stenosis. Pericardium: The pericardium appears normal. Pulmonary Artery: The main pulmonary artery is not well visualized. Venous: The inferior vena cava appears normal in size. Measurements Chambers 2D Name Value Normal Range IVSd (2D) 0.83 cm (0.6 - 1.1) LVPWd (2D) 0.83 cm (0.6 - 1.1) LVIDd (2D) 3.88 cm (3.7 - 5.6) LVIDs (2D) 2.46 cm (2 - 3.8) LV FS (2D) 36.52 % - EF Teichholz (2D) 66.97 % - Ao root diameter (2D) 3.47 cm (2 - 3.7) Volumes/Mass Name Value Normal Range LA ESV SP 4CH (A/L) 22.4 ml - LA ESV SP 2CH (A/L) 22.89 ml - LA ESV BP (A/L) 23.06 ml - LA ESV SP 4CH (MOD) 21.09 ml - LA ESV SP 2CH (MOD) 22.44 ml - Diastolic/Systolic Function Name Value Normal Range MV E-wave Vmax 0.48 m/sec - MV deceleration time 156.3 msec - MV A-wave Vmax 0.59 m/sec - MV E:A ratio 0.81 ratio - Aortic Valve Name Value Normal Range AV Vmax 0.97 m/sec - AV VTI 14.49 cm - AV peak gradient 3.73 mmHg - AV mean gradient 1.89 mmHg - LVOT diameter 2.09 cm - LVOT Vmax 0.72 m/sec - LVOT VTI 10.21 cm - LVOT peak gradient 2.05 mmHg - LVOT mean gradient 1.03 mmHg - SV LVOT 35.17 ml - INNA (continuity Vmax) 2.55 cm2 - INNA (continuity VTI) 2.43 cm2 - Tricuspid Valve Name Value Normal Range TV E-wave Vmax 0.37 m/sec - Pulmonic Valve/Qp:Qs Name Value Normal Range PV Vmax 0.72 m/sec - PV peak gradient 2.06 mmHg - RVOT Vmax 0.85 m/sec - RVOT VTI 9.89 cm - RVOT peak gradient 2.9 mmHg - PV acceleration time 72.31 msec - Cantor/IV: Voiding Method Urinal IV Catheter Type [Right Wrist] INT / Saline Lock IV Catheter Type [Right Upper Peripheral IV arm] IV Catheter Type [Right CVL Internal Jugular] IV Catheter Type [Right Peripheral IV Forearm] IV Catheter Type [Left Forearm INT / Saline Lock ] IV Catheter Type [Left Wrist] INT / Saline Lock IV Catheter Type [Right Hand] INT / Saline Lock IV Catheter Type [Left Hand] INT / Saline Lock IV Catheter Type [Left Peripheral IV Antecubital] Active Medications - Current Medications Current Medications: Generic Name Dose Route Start Last Admin Trade Name Freq PRN Reason Stop Dose Admin Acetaminophen 650 mg 08/07/20 10:06 08/13/20 16:05 Acetaminophen 325 Mg Tab PO 650 mg Q4H PRN Administration Pain, Mild (1-3) Bisacodyl 10 mg 07/14/20 11:00 Bisacodyl 10 Mg Rect Supp NC BID PRN Laxative Effect Enoxaparin Sodium 40 mg 07/29/20 22:00 08/20/20 21:45 Enoxaparin 40 Mg/0.4 Ml Inj SUB-Q 40 mg QDAY@2200 [facility] Administration Protocol Folic Acid 1 mg 05/09/20 15:36 08/21/20 10:36 Folic Acid 1 Mg Tab PO 1 mg QDAY DESIRE Administration Guaifenesin 600 mg 07/19/20 23:00 08/21/20 10:37 Guaifenesin Er 600 Mg Tab PO 600 mg BID DESIRE Administration Hydrophilic Ointment 1 applic 05/21/20 20:33 Lip Therapy Vaseline TP Q2HR PRN Dry Lips Insulin Human Lispro 0 unit 07/31/20 07:30 08/21/20 14:35 Insulin Lispro 100 Unit/Ml SUB-Q Not Given ACHS [facility] Protocol Lansoprazole 30 mg 06/28/20 10:00 08/21/20 10:37 Lansoprazole 30 Mg Solutab FEEDTUBE 30 mg QDAY DESIRE Administration Metoprolol Tartrate 5 mg 07/02/20 17:17 08/13/20 14:44 Metoprolol Tartrate 5 Mg/5 Ml Inj IV 5 mg Q6HR PRN Administration Tachyarrhythmias Metoprolol Tartrate 25 mg 08/12/20 12:00 08/21/20 10:36 Metoprolol Tartrate 25 Mg Tab PO 25 mg BID DESIRE Administration Multi-Ingred Cream/Lotion/Oil/Oint 1 applic 05/21/20 20:33 Mineral Oil/Petrolatum, White Ophth Oint 3.5 Gm OU Q4HR PRN Dry Eye(s) Olanzapine 5 mg 07/17/20 22:00 08/20/20 21:45 Olanzapine 5 Mg Tab PO 5 mg QHS DESIRE Administration Phenobarbital 32.4 mg 12/27/20 22:00 08/21/20 10:37 Phenobarbital 32.4 Mg Tab PO 32.4 mg BID DESIRE Administration Pseudoephedrine/Acetam/Chlorphenir 10 ml 08/18/20 15:45 08/19/20 14:30 Guaifenesin/Codeine 100-10mg Oral Liqd 5 Ml PO 10 ml Q4H PRN Administration Cough Quetiapine Fumarate 200 mg 07/16/20 10:00 08/21/20 10:37 Quetiapine 200 Mg Tab PO 200 mg QAM DESIRE Administration Senna 17.2 mg 07/14/20 11:00 08/03/20 16:46 Sennosides 8.6 Mg Tab PO 8.6 mg BID PRN Administration Laxative Effect Nutrition/Malnutrition Assess - Dietary Evaluation Nutrition/Malnutrition Findings: Nutrition Notes Start: 05/17/20 14:10 Freq: Status: Active Protocol: Document 08/18/20 12:39 CW (Rec: 08/18/20 12:53 CW [id number]) Nutrition Notes Initial or Follow up Reassessment Current Diagnosis Acute Kidney Injury,Decubitus( Pressure Ulcer),Sepsis, Respiratory Failure Other Pertinent Diagnosis Bilat pneu, COVID-19 (-), Colonic pseudoobstuction, EtOH dependence Current Diet Regular diet Labs/Tests Reviewed Pertinent Medications Reviewed Height 6 ft Weight 99.5 kg Usual Body Weight 118 kg [place] Body Weight (kg) 80.90 BMI 29.7 Weight change and time frame Weight gain noted Weight Status Overweight Subjective/Other Information F/u for intakes, Sammy and ONS tolerance. Pt reports consuming 100% of meals and ONS. R/O good appetite. Pt denies N/V/D/C. Percent of energy/protein needs met: 100%/100% Burn Absent Trauma Absent GI Symptoms None Current % PO Good (75-100%) Minimum of two criteria Yes Interpretation of Weight Loss (severe) >5% in 1 month Muscle Mass Mild Depletion (non-severe) #3 Nutrition Diagnosis Malnutrition Diagnosis Progress(for reassessment Continues documentation) #2 Nutrition Diagnosis Increased nutrient needs ( specify in comment below) Diagnosis Progress(for reassessment Continues documentation) Is patient on ventilator? No Is Patient Ambulatory and/or Out of Bed No REE-([place]-confined to bed) 2269.308 Kcal/Kg value to use for calculation 21 Approximate Energy Requirements Using 0 kcal/Kg Calculation Used for Recommendations Kcal/kg Additional Notes Protein: 108-135 g (1.2-1.5 g/ kg AdBW 90 kg) Fluid: 1ml/kcal Nutrition Intervention Change Diet Order: Continue diet Add Supplement/Snack (indicate name/kcal Ensure High Protein daily /protein ) Sammy BID Provides kCal: 350 Provides Protein (gm) 21 Goal #1 Meet at least 75% protein and energy needs via PO Goal #2 ONS tolerance Goal #3 Intake of Sammy BID Anticipated Discharge Needs: Regular dier, Sammy BID and Ensure High Protein until wound healed Follow-Up By: 08/25/20 Additional Comments F/u stable intakes, ONS and Sammy tolerance/intake
[2020-08-21] MEDS: ENOXAPARIN 40 MG/0.4 ML INJ SUB-Q SCH (22:08)
[2020-08-22 06:36] LABS: Basophils % (Auto) 0.5 % (0.0-1.8); Eosinophils # (Auto) 0.4 K/mm3 (0.0-0.4); Eosinophils % (Auto) 3.4 % (0.0-4.3); Hematocrit 39.1 % (35.5-45.6); Hemoglobin 12.9 gm/dl (11.8-15.2); Lymphocytes % (Auto) 18.6 % (13.4-35.0); Mean Corpuscular HGB Conc 33 % (32-34); Mean Corpuscular Volume 95 fl (84-94); Monocytes % (Auto) 9.7 % (0.0-7.3); Platelet Count 331 K/mm3 (140-440); Red Blood Count 4.13 M/mm3 (3.65-5.03); Red Cell Distribution Width 16.4 % (13.2-15.2)
[2020-08-22 06:56] LABS: Blood Urea Nitrogen 15 mg/dL (9-20); Calcium 10.1 mg/dL (8.4-10.2); Hemolysis Index 3
[2020-08-22 07:01] LABS: BUN/Creatinine Ratio 25
[2020-08-22] MEDS: INSULIN LISPRO 100 UNIT/ML SUB-Q SCH ×4 (08:10→22:55)
[2020-08-22] MEDS: guaiFENesin ER 600 MG TAB PO SCH ×2 (09:16→22:55)
[2020-08-22] MEDS: PHENobarbital 32.4 MG TAB PO SCH ×2 (09:17→22:55)
[2020-08-22] MEDS: METOPROLOL TARTRATE 25 MG TAB PO SCH ×2 (09:17→22:55)
[2020-08-22] MEDS: FOLIC ACID 1 MG TAB PO SCH (09:17)
[2020-08-22] MEDS: QUEtiapine 200 MG TAB PO SCH (09:17)
[2020-08-22] MEDS: LANSOPRAZOLE 30 MG SOLUTAB FEEDTUBE SCH (09:17)
[2020-08-22] MEDS ORDERED: POTASSIUM CHLORIDE ER 20 MEQ TAB PO NR (11:07)
--- NOTE | 2020-08-22 11:10 | Progress Note ---
Assessment and Plan Assessment and plan: Positive COVID-19 test; 05/10/2020 Negative COVID-19 test; 06/30/2020 --Hypokalemia; replenish with KCl --Acute hypoxemic resp failure; oxygen dependent on 2 L NC, today ,requiring intermittent BiPAP Due to COVID-19 pneumonia --Persistent sinus tachycardia: Multifactorial We will closely monitor --Severe COVID-19 bilateral pneumonia Coronavirus protocol: Completed steroids and remdesivir therapy, isolation precautions, Received management per COVID-19 protocol --Pneumothorax status post right chest tube Chest tube removed 07/23/2020 Post removal chest x-ray no pneumothorax Patient is requiring 3 to 4 L nasal cannula And intermittent BiPAP --Elevated D-dimers; Patient had CTA chest ; negative for PE, Lower extremity venous Doppler negative for DVT --Pseudomonas bacteremia; ID following, completed cefepime --Severe sepsis/septic shock, monitor off pressors Completed cefepime, monitor off antibiotics -- Acute kidney injury (SEN) , likely vasomotor nephropathy Resolved, avoid nephrotoxins --Acute on chronic anemia Guaiac test positive, GI evaluated the patient Patient H&H is normal range now Hb 11.8 -- Elevated liver function tests; resolved LFTs within normal limits --Colonic distention GI evaluated colonic distention resolved recommend stool softeners -- DVT prophylaxis On Lovenox CTA chest negative for PE,LE DVT negative, therapeutic Lovenox DC'd Changed to prophylactic Lovenox Patient is medically stable for discharge Disposition; insurance did not approve IRU Possible subacute rehab placement DC planning per case management Plan of care reviewed with the patient and his nurse Brief history: 50 YO Male with Obesity, ETOH Dependence presents to ED for evaluation. Patient states that he has experienced shortness of breath, generalized weakness, fatigue, malaise, body aches, decreased exercise tolerance over the past 5 days with persistently worsening symptoms over the same timeframe. EMS was notified and upon arrival the patient was found to be in distress with a pulse oximetry of 76% on room air as well as fever to 103 F. Patient was placed on supplemental oxygen and subsequently transported to [facility] for further care and evaluation. Patient seen and evaluated in the emergency department. All lab and imaging studies reviewed. Patient underwent chest x-ray and was found to have bilateral pneumonia. Patient also found to have a pulse oximetry of 86% on 4 L nasal cannula. Patient initiated on a high flow submental oxygen with improvement of pulse oximetry. Patient admitted to medical floor and initiated on pneumonia protocol as well as COVID-19 protocol. Patient also found to have acute kidney injury as well as elevated liver function test suspected secondary to alcohol dependence. Patient reports being diagnosed with coronavirus 2 days ago. No prior admission for review. 07/23/2020; patient remains on high flow oxygen, wean oxygen as tolerated, severe hypokalemia Replenish per protocol monitor levels 07/24/2020; patient had chest tube removal yesterday 07/23/2019 and, post removal chest x-ray no pneumothorax no acute abnormalities Patient feels slightly better continues to require high flow oxygen Wean as tolerated, physical and occupational therapy, DC planning 07/26/2020; patient on 3 L nasal cannula oxygen, patient feels better 07/27/2020; patient was saturating well on 3 L of nasal cannula oxygen, however today patient is on high flow oxygen 15 L Complains of some congestion, wean oxygen levels to 3-5 as tolerated Discharge planning LTAC has refused patient,Possible home with home health versus placement when medically stable 07/28/2020; continue to wean oxygen, patient is on 10 L, awaiting placement 07/29/2020; continues to be on 10 L nasal cannula oxygen, wean as tolerated Patient is on empiric therapeutic dose Lovenox, due to elevated D-dimers Patient is stable for CTA chest today, follow the report and adjust Lovenox as needed DC planning per case management, with pending placement 07/30/2020; patient feels slightly better, oxygen reduced to 8 L of nasal cannula Will check PT OT, pending placement 07/31/2020 :Patient on 8 L of nasal cannula oxygen 08/03/2020; patient's oxygen requirement has come down to 3-4 and half liters nasal cannula Will try to wean oxygen as tolerated, respiratory therapist assisting to reach the goal Possible discharge home in 1 to 2 days if stable Plan of care reviewed with the patient and his nurse 08/04/2020; patient is requiring 3 to 4 L nasal cannula oxygen, case management to set up home oxygen Patient is hemodynamically and clinically stable for discharge, pending placement [facility] And of care reviewed with the patient and his nurse as well as the case management 08/05/2020 ; COVID-19 test requested , patient is hemodynamically and clinically stable for discharge Patient is requiring 4 L of nasal cannula oxygen . medically stable for discharge 08/06/2020; patient is hemodynamically and clinically stable for discharge and transfer to IRU unit today Pre-discharge COVID-19 test is negative, pending insurance authorization 08/07/20; patient is accepted by inpatient rehab unit for admission, pending insurance authorization Stable for discharge 08/08/2020; patient is stable for discharge to inpatient rehab unit, pending insurance approval 08/09/2020; bilingual case manager reports that insurance has not approved inpatient rehab placement for this patient Will evaluate for home oxygen, set up home oxygen if eligible, and plan discharge home with home health when patient is hemodynamically stable 08/10/2020; patient continues to have persistent tachycardia, and persistent hypoxia requiring 4 L of nasal cannula oxygen As well as intermittent BiPAP, continue current management 08/11/2020; patient continues to require oxygen and intermittent BiPAP, awaiting IRU placement Versus home with home health and home oxygen, DC planning per case management 08/12/2020; awaiting IRU placement versus home with home health on home oxygen 08/14/2020-08/18/2020; patient continues to require 4 L of nasal cannula oxygen Discharge planning is in process, PT recommend acute inpatient rehab, awaiting insurance approval CM reports insurance denied inpatient rehab placement option 08/19/2020; I spoke with insurance physician Dr. Lopez, P2P and discussed patient's condition and the need for inpatient rehab However Dr. Macias reports that PT/OT evaluation and documentation do not reflect that patient can complete 3 hours of acute therapy in acute rehab. It reflects that he can hardly walk few steps/few feet. Advised to reevaluate if he meets the above requirements. Dr. Macias also reports that she can approve for subacute rehab placement. --08/20/2020 ;patient awaiting placement, inpatient rehab versus subacute versus home health DC planning per case management 08/21/2020; pending subacute rehab placement 08/22/2020; on 2 L nasal cannula oxygen, awaiting placement History Interval history: I have seen and examined the patient at the bedside this morning Patient's chart and medications reviewed Patient remains on 2 L of nasal cannula oxygen Patient is awaiting placement Hospitalist Physical - Constitutional Vitals: Temp Pulse Resp BP Pulse Ox 98.4 F 104 H 18 110/70 96 08/22/20 08:11 08/22/20 09:17 08/22/20 10:00 08/22/20 08:11 08/22/20 10:00 General appearance: Present: no acute distress, well-nourished - EENT Eyes: Present: PERRL, EOM intact - Neck Neck: Present: supple, normal ROM - Respiratory Respiratory effort: normal Respiratory: bilateral: diminished, negative: rales, rhonchi, wheezing - Cardiovascular Rhythm: regular Heart Sounds: Present: S1 & S2 - Extremities Extremities: no ischemia, No edema - Abdominal General gastrointestinal: soft, non-tender, non-distended - Integumentary Integumentary: Present: clear, warm - Psychiatric Psychiatric: appropriate mood/affect, cooperative - Neurologic Neurologic: CNII-XII intact, moves all extremities HEART Score - HEART Score Troponin: Troponin T 0.015 ng/mL (0.00-0.029) 07/07/20 10:00 Results - Labs CBC & Chem 7: 08/22/20 05:11 08/22/20 05:11 Labs: Laboratory Last Values WBC 10.6 K/mm3 (4.5-11.0) 08/22/20 05:11 RBC 4.13 M/mm3 (3.65-5.03) 08/22/20 05:11 Hgb 12.9 gm/dl (11.8-15.2) 08/22/20 05:11 Hct 39.1 % (35.5-45.6) 08/22/20 05:11 MCV 95 fl (84-94) H 08/22/20 05:11 MCH 31 pg (28-32) 08/22/20 05:11 MCHC 33 % (32-34) 08/22/20 05:11 RDW 16.4 % (13.2-15.2) H 08/22/20 05:11 Plt Count 331 K/mm3 (140-440) 08/22/20 05:11 Lymph % (Auto) 18.6 % (13.4-35.0) 08/22/20 05:11 [place] % (Auto) 9.7 % (0.0-7.3) H 08/22/20 05:11 Eos % (Auto) 3.4 % (0.0-4.3) 08/22/20 05:11 Baso % (Auto) 0.5 % (0.0-1.8) 08/22/20 05:11 Lymph # (Auto) 2.0 K/mm3 (1.2-5.4) 08/22/20 05:11 [place]ier # (Auto) 1.0 K/mm3 (0.0-0.8) H 08/22/20 05:11 Eos # (Auto) 0.4 K/mm3 (0.0-0.4) 08/22/20 05:11 Baso # (Auto) 0.0 K/mm3 (0.0-0.1) 08/22/20 05:11 Add Manual Diff Complete 07/13/20 08:31 Total Counted 100 07/13/20 08:31 Seg Neutrophils % 67.8 % (40.0-70.0) 08/22/20 05:11 Seg Neuts % (Manual) 96.0 % (40.0-70.0) H 07/13/20 08:31 Band Neutrophils % 0 % 07/13/20 08:31 Lymphocytes % (Manual) 2.0 % (13.4-35.0) L 07/13/20 08:31 Reactive Lymphs % (Man) 0 % 07/13/20 08:31 Monocytes % (Manual) 2.0 % (0.0-7.3) 07/13/20 08:31 Eosinophils % (Manual) 0 % (0.0-4.3) 07/13/20 08:31 Basophils % (Manual) 0 % (0.0-1.8) 07/13/20 08:31 Metamyelocytes % 0 % 07/13/20 08:31 Myelocytes % 0 % 07/13/20 08:31 Promyelocytes % 0 % 07/13/20 08:31 Blast Cells % 0 % 07/13/20 08:31 Nucleated RBC % Not Reportable 07/13/20 08:31 Seg Neutrophils # 7.2 K/mm3 (1.8-7.7) 08/22/20 05:11 Seg Neutrophils # Man 20.4 K/mm3 (1.8-7.7) H 07/13/20 08:31 Band Neutrophils # 0.0 K/mm3 07/13/20 08:31 Lymphocytes # (Manual) 0.4 K/mm3 (1.2-5.4) L 07/13/20 08:31 Abs React Lymphs (Man) 0.0 K/mm3 07/13/20 08:31 Monocytes # (Manual) 0.4 K/mm3 (0.0-0.8) 07/13/20 08:31 Eosinophils # (Manual) 0.0 K/mm3 (0.0-0.4) 07/13/20 08:31 Basophils # (Manual) 0.0 K/mm3 (0.0-0.1) 07/13/20 08:31 Metamyelocytes # 0.0 K/mm3 07/13/20 08:31 Myelocytes # 0.0 K/mm3 07/13/20 08:31 Promyelocytes # 0.0 K/mm3 07/13/20 08:31 Blast Cells # 0.0 K/mm3 07/13/20 08:31 WBC Morphology Not Reportable 07/13/20 08:31 Hypersegmented Neuts Not Reportable 07/13/20 08:31 Hyposegmented Neuts Not Reportable 07/13/20 08:31 Hypogranular Neuts Not Reportable 07/13/20 08:31 Smudge Cells Not Reportable 07/13/20 08:31 Toxic Granulation Not Reportable 07/13/20 08:31 Toxic Vacuolation Not Reportable 07/13/20 08:31 Dohle Bodies Not Reportable 07/13/20 08:31 Pelger-Huet Anomaly Not Reportable 07/13/20 08:31 Jason Rods Not Reportable 07/13/20 08:31 Platelet Estimate Consistent w auto 07/13/20 08:31 Clumped Platelets Not Reportable 07/13/20 08:31 Plt Clumps, EDTA Not Reportable 07/13/20 08:31 Large Platelets Not Reportable 07/13/20 08:31 Giant Platelets Not Reportable 07/13/20 08:31 Platelet Satelliting Not Reportable 07/13/20 08:31 Plt Morphology Comment Not Reportable 07/13/20 08:31 RBC Morphology Not Reportable 07/13/20 08:31 Dimorphic RBCs Not Reportable 07/13/20 08:31 Polychromasia Not Reportable 07/13/20 08:31 Hypochromasia Not Reportable 07/13/20 08:31 Poikilocytosis Not Reportable 07/13/20 08:31 Anisocytosis Not Reportable 07/13/20 08:31 Microcytosis Not Reportable 07/13/20 08:31 Macrocytosis Not Reportable 07/13/20 08:31 Spherocytes Not Reportable 07/13/20 08:31 Pappenheimer Bodies Not Reportable 07/13/20 08:31 Sickle Cells Not Reportable 07/13/20 08:31 Target Cells Not Reportable 07/13/20 08:31 Tear Drop Cells Not Reportable 07/13/20 08:31 Ovalocytes Not Reportable 07/13/20 08:31 Stomatocytes Few 07/13/20 08:31 Helmet Cells Not Reportable 07/13/20 08:31 [place] Bodies Not Reportable 07/13/20 08:31 [place] Rings Not Reportable 07/13/20 08:31 Izabella Cells Not Reportable 07/13/20 08:31 Bite Cells Not Reportable 07/13/20 08:31 Crenated Cell Not Reportable 07/13/20 08:31 Elliptocytes Not Reportable 07/13/20 08:31 Acanthocytes (Spur) Not Reportable 07/13/20 08:31 Rouleaux Not Reportable 07/13/20 08:31 Hemoglobin C Crystals Not Reportable 07/13/20 08:31 Schistocytes Not Reportable 07/13/20 08:31 Malaria parasites Not Reportable 07/13/20 08:31 Josue Bodies Not Reportable 07/13/20 08:31 Hem Pathologist Commnt No 07/13/20 08:31 PT 11.8 Sec. (12.2-14.9) L 06/22/20 14:29 INR 0.88 (0.87-1.13) 06/22/20 14:29 APTT 23.5 Sec. (24.2-36.6) L 06/22/20 14:29 D-Dimer 1887.82 ng/mlDDU (0-234) H 05/20/20 08:16 Heparin Anti-Xa Level 0.37 U.I./ml (0.3-0.7) 07/02/20 16:08 ABG pH 7.437 (7.320-7.450) 08/11/20 18:43 POC ABG pCO2 51.0 mmHg (32.0-48.0) H 08/11/20 18:43 ABG pCO2 53.1 mm Hg 07/08/20 Unknown POC ABG pO2 84.9 mmHg (83-108) 08/11/20 18:43 ABG pO2 75.3 mm Hg (80.0-90.0) L 07/08/20 Unknown POC ABG HCO3 33.6 08/11/20 18:43 ABG HCO3 34.3 mmol/L (20.0-26.0) H 07/08/20 Unknown ABG O2 Saturation 96.5 % (95.0-99.0) 07/08/20 Unknown ABG O2 Content 13.5 (0.0-44) 07/08/20 Unknown POC ABG Base Excess 7.9 08/11/20 18:43 ABG Base Excess 8.7 mmol/L (-2.0-3.0) H 07/08/20 Unknown ABG Hemoglobin 13.8 (12.0-17.5) 08/11/20 18:43 ABG Oxyhemoglobin 94.6 (94-98) 08/11/20 18:43 ABG Carboxyhemoglobin 2.4 % (0.0-5.0) 07/08/20 Unknown ABG Methemoglobin 0.3 (0.0-1.5) 08/11/20 18:43 ABG Sodium 138.0 mmol/L (136.0-145.0) 08/11/20 18:43 ABG Potassium 3.4 mmol/L (3.40-4.50) 08/11/20 18:43 ABG Chloride 99.0 mmol/L (98-107) 08/11/20 18:43 ABG Glucose 149 mg/dL (65-95) H 08/11/20 18:43 Oxyhemoglobin 93.7 % (95.0-99.0) L 07/08/20 Unknown Carboxyhemoglobin 1.2 (0.5-1.5) 08/11/20 18:43 FiO2 50.0 08/11/20 18:43 Sodium 143 mmol/L (137-145) 08/22/20 05:11 Potassium 3.3 mmol/L (3.6-5.0) L 08/22/20 05:11 Chloride 99.8 mmol/L (98-107) 08/22/20 05:11 Carbon Dioxide 31 mmol/L (22-30) H 08/22/20 05:11 Anion Gap 16 mmol/L 08/22/20 05:11 BUN 15 mg/dL (9-20) 08/22/20 05:11 Creatinine 0.6 mg/dL (0.8-1.3) L 08/22/20 05:11 Estimated GFR > 60 ml/min 08/22/20 05:11 BUN/Creatinine Ratio 25 % 08/22/20 05:11 Glucose 95 mg/dL (75-100) 08/22/20 05:11 POC Glucose 102 mg/dL (70-105) 08/22/20 07:58 Lactic Acid 0.80 mmol/L (0.7-2.0) 07/13/20 15:45 Calcium 10.1 mg/dL (8.4-10.2) 08/22/20 05:11 Phosphorus 5.10 mg/dL (2.5-4.5) H 08/22/20 05:11 Magnesium 1.90 mg/dL (1.7-2.3) 08/22/20 05:11 Ferritin 1496.0 ng/mL (30.0-300.0) H 06/14/20 11:50 Total Bilirubin 0.30 mg/dL (0.1-1.2) 08/02/20 05:55 Direct Bilirubin 0.6 mg/dL (0-0.2) H 05/11/20 07:30 Indirect Bilirubin 0.9 mg/dL 05/11/20 07:30 AST 37 units/L (5-40) 08/02/20 05:55 ALT 118 units/L (7-56) H 08/02/20 05:55 Alkaline Phosphatase 88 units/L (35-129) 08/02/20 05:55 Lactate Dehydrogenase 705 units/L (91-180) H 05/20/20 08:16 Troponin T 0.015 ng/mL (0.00-0.029) 07/07/20 10:00 C-Reactive Protein 3.10 mg/dL (0.00-1.30) H 05/20/20 08:16 Total Protein 6.4 g/dL (6.3-8.2) 08/02/20 05:55 Albumin 3.3 g/dL (3.9-5) L 08/02/20 05:55 Albumin/Globulin Ratio 1.1 % 08/02/20 05:55 Triglycerides 452 mg/dL (2-149) H 06/30/20 07:00 Lipase 86 units/L (13-60) H 06/29/20 09:36 Procalcitonin 2.15 ng/mL (<0.15) 07/15/20 05:31 Arterial Blood Glucose 149 mg/dL (65-95) H 08/11/20 18:43 Arterial Blood Ionized Calcium 4.8 mg/dL (4.6-5.3) 08/11/20 18:43 Urine Color Afuzia (Yellow) 05/10/20 Unknown Urine Turbidity Clear (Clear) 05/10/20 Unknown Urine pH 5.0 (5.0-7.0) 05/10/20 Unknown Ur Specific [place] 1.019 (1.003-1.030) 05/10/20 Unknown Urine Protein 100 mg/dl mg/dL (Negative) 05/10/20 Unknown Urine Glucose (UA) Neg mg/dL (Negative) 05/10/20 Unknown Urine Ketones Neg mg/dL (Negative) 05/10/20 Unknown Urine Blood Lg (Negative) 05/10/20 Unknown Urine Nitrite Neg (Negative) 05/10/20 Unknown Urine Bilirubin Neg (Negative) 05/10/20 Unknown Urine Urobilinogen 2.0 mg/dL (<2.0) 05/10/20 Unknown Ur Leukocyte Esterase Neg (Negative) 05/10/20 Unknown Urine WBC (Auto) 11.0 /HPF (0.0-6.0) H 05/10/20 Unknown Urine RBC (Auto) 2.0 /HPF (0.0-6.0) 05/10/20 Unknown U Epithel Cells (Auto) 1.0 /HPF (0-13.0) 05/10/20 Unknown Urine Bacteria (Auto) 1+ /HPF (Negative) 05/10/20 Unknown Urine Mucus Few /HPF 05/10/20 Unknown Plasma/Serum Alcohol < 0.01 % (0-0.07) 05/09/20 14:20 Coronavirus (PCR) Negative (Negative) 08/06/20 09:36 Hepatitis A Ab Total Nonreactive (Nonreactive) 07/09/20 Unknown Hep B Core Total Ab Nonreactive (Nonreactive) 07/09/20 Unknown Hepatitis C RNA Quant See scanned result 07/09/20 Unknown SARS-CoV-2 IgG Ab Reactive (NonReactive) A 05/11/20 07:30 Blood Type B POSITIVE 06/21/20 14:18 Antibody Screen Negative 06/21/20 14:18 Crossmatch See Detail 06/21/20 14:18 - Diagnostic Impressions Diagnostic Impressions: Echocardiogram 05/20/20 13:02 Transthoracic Echocardiogram Indication: CHF BP: 97/73 Conclusions *The study quality is technically very difficult and limited. *The left ventricular chamber size, wall thickness and systolic function are within normal limits. There are no wall motion abnormalities observed. Ejection fraction is normal. *The estimated ejection fraction is 60-65%. *The pericardium appears normal. Findings Procedure Info: The study quality is technically difficult. Left Ventricle: The left ventricular chamber size, wall thickness and systolic function are within normal limits. There are no wall motion abnormalities observed. Ejection fraction is normal. The estimated ejection fraction is 60-65%. Abnormal left ventricular diastolic filling is observed, consistent with impaired relaxation. Left Atrium: The left atrium is normal in size with no visual thrombus identified. Right Ventricle: The right ventricle is not well visualized. Right Atrium: The right atrium is not well visualized. Aortic Valve: The aortic valve is trileaflet. The leaflets are thin with normal excursion. There is no aortic stenosis or regurgitation present. Mitral Valve: The mitral valve appears normal in structure and function. Tricuspid Valve: The tricuspid valve appears normal in structure and function. Unable to estimate the right ventricular systolic pressure. Pulmonic Valve: The pulmonic valve is not well visualized. There is no evidence of pulmonic regurgitation. There is no pulmonic stenosis. Pericardium: The pericardium appears normal. Pulmonary Artery: The main pulmonary artery is not well visualized. Venous: The inferior vena cava appears normal in size. Measurements Chambers 2D Name Value Normal Range IVSd (2D) 0.83 cm (0.6 - 1.1) LVPWd (2D) 0.83 cm (0.6 - 1.1) LVIDd (2D) 3.88 cm (3.7 - 5.6) LVIDs (2D) 2.46 cm (2 - 3.8) LV FS (2D) 36.52 % - EF Teichholz (2D) 66.97 % - Ao root diameter (2D) 3.47 cm (2 - 3.7) Volumes/Mass Name Value Normal Range LA ESV SP 4CH (A/L) 22.4 ml - LA ESV SP 2CH (A/L) 22.89 ml - LA ESV BP (A/L) 23.06 ml - LA ESV SP 4CH (MOD) 21.09 ml - LA ESV SP 2CH (MOD) 22.44 ml - Diastolic/Systolic Function Name Value Normal Range MV E-wave Vmax 0.48 m/sec - MV deceleration time 156.3 msec - MV A-wave Vmax 0.59 m/sec - MV E:A ratio 0.81 ratio - Aortic Valve Name Value Normal Range AV Vmax 0.97 m/sec - AV VTI 14.49 cm - AV peak gradient 3.73 mmHg - AV mean gradient 1.89 mmHg - LVOT diameter 2.09 cm - LVOT Vmax 0.72 m/sec - LVOT VTI 10.21 cm - LVOT peak gradient 2.05 mmHg - LVOT mean gradient 1.03 mmHg - SV LVOT 35.17 ml - INNA (continuity Vmax) 2.55 cm2 - INNA (continuity VTI) 2.43 cm2 - Tricuspid Valve Name Value Normal Range TV E-wave Vmax 0.37 m/sec - Pulmonic Valve/Qp:Qs Name Value Normal Range PV Vmax 0.72 m/sec - PV peak gradient 2.06 mmHg - RVOT Vmax 0.85 m/sec - RVOT VTI 9.89 cm - RVOT peak gradient 2.9 mmHg - PV acceleration time 72.31 msec - Cantor/IV: Voiding Method Urinal IV Catheter Type [Right Wrist] INT / Saline Lock IV Catheter Type [Right Upper Peripheral IV arm] IV Catheter Type [Right CVL Internal Jugular] IV Catheter Type [Right Peripheral IV Forearm] IV Catheter Type [Left Forearm INT / Saline Lock ] IV Catheter Type [Left Wrist] INT / Saline Lock IV Catheter Type [Right Hand] INT / Saline Lock IV Catheter Type [Left Hand] INT / Saline Lock IV Catheter Type [Left Peripheral IV Antecubital] Active Medications - Current Medications Current Medications: Generic Name Dose Route Start Last Admin Trade Name Freq PRN Reason Stop Dose Admin Acetaminophen 650 mg 08/07/20 10:06 08/13/20 16:05 Acetaminophen 325 Mg Tab PO 650 mg Q4H PRN Administration Pain, Mild (1-3) Bisacodyl 10 mg 07/14/20 11:00 Bisacodyl 10 Mg Rect Supp SC BID PRN Laxative Effect Enoxaparin Sodium 40 mg 07/29/20 22:00 08/21/20 22:08 Enoxaparin 40 Mg/0.4 Ml Inj SUB-Q 40 mg QDAY@2200 [facility] Administration Protocol Folic Acid 1 mg 05/09/20 15:36 08/22/20 09:17 Folic Acid 1 Mg Tab PO 1 mg QDAY DESIRE Administration Guaifenesin 600 mg 07/19/20 23:00 08/22/20 09:16 Guaifenesin Er 600 Mg Tab PO 600 mg BID DESIRE Administration Hydrophilic Ointment 1 applic 05/21/20 20:33 Lip Therapy Vaseline TP Q2HR PRN Dry Lips Insulin Human Lispro 0 unit 07/31/20 07:30 08/22/20 08:10 Insulin Lispro 100 Unit/Ml SUB-Q Not Given ACHS [facility] Protocol Lansoprazole 30 mg 06/28/20 10:00 08/22/20 09:17 Lansoprazole 30 Mg Solutab FEEDTUBE 30 mg QDAY DESIRE Administration Metoprolol Tartrate 5 mg 07/02/20 17:17 08/13/20 14:44 Metoprolol Tartrate 5 Mg/5 Ml Inj IV 5 mg Q6HR PRN Administration Tachyarrhythmias Metoprolol Tartrate 25 mg 08/12/20 12:00 08/22/20 09:17 Metoprolol Tartrate 25 Mg Tab PO 25 mg BID DESIRE Administration Multi-Ingred Cream/Lotion/Oil/Oint 1 applic 05/21/20 20:33 Mineral Oil/Petrolatum, White Ophth Oint 3.5 Gm OU Q4HR PRN Dry Eye(s) Olanzapine 5 mg 07/17/20 22:00 08/21/20 22:09 Olanzapine 5 Mg Tab PO 5 mg QHS DESIRE Administration Phenobarbital 32.4 mg 07/04/20 22:00 08/22/20 09:17 Phenobarbital 32.4 Mg Tab PO 32.4 mg BID DESIRE Administration Potassium Chloride 40 meq 08/22/20 11:07 Potassium Chloride Er 20 Meq Tab PO 08/22/20 11:08 ONCE ONE Pseudoephedrine/Acetam/Chlorphenir 10 ml 08/18/20 15:45 08/19/20 14:30 Guaifenesin/Codeine 100-10mg Oral Liqd 5 Ml PO 10 ml Q4H PRN Administration Cough Quetiapine Fumarate 200 mg 07/16/20 10:00 08/22/20 09:17 Quetiapine 200 Mg Tab PO 200 mg QAM DESIRE Administration Senna 17.2 mg 07/14/20 11:00 08/03/20 16:46 Sennosides 8.6 Mg Tab PO 8.6 mg BID PRN Administration Laxative Effect Nutrition/Malnutrition Assess - Dietary Evaluation Nutrition/Malnutrition Findings: Nutrition Notes Start: 05/17/20 14:10 Freq: Status: Active Protocol: Document 08/18/20 12:39 CW (Rec: 08/18/20 12:53 CW [id number]) Nutrition Notes Initial or Follow up Reassessment Current Diagnosis Acute Kidney Injury,Decubitus( Pressure Ulcer),Sepsis, Respiratory Failure Other Pertinent Diagnosis Bilat pneu, COVID-19 (-), Colonic pseudoobstuction, EtOH dependence Current Diet Regular diet Labs/Tests Reviewed Pertinent Medications Reviewed Height 6 ft Weight 99.5 kg Usual Body Weight 118 kg [place] Body Weight (kg) 80.90 BMI 29.7 Weight change and time frame Weight gain noted Weight Status Overweight Subjective/Other Information F/u for intakes, Sammy and ONS tolerance. Pt reports consuming 100% of meals and ONS. R/O good appetite. Pt denies N/V/D/C. Percent of energy/protein needs met: 100%/100% Burn Absent Trauma Absent GI Symptoms None Current % PO Good (75-100%) Minimum of two criteria Yes Interpretation of Weight Loss (severe) >5% in 1 month Muscle Mass Mild Depletion (non-severe) #3 Nutrition Diagnosis Malnutrition Diagnosis Progress(for reassessment Continues documentation) #2 Nutrition Diagnosis Increased nutrient needs ( specify in comment below) Diagnosis Progress(for reassessment Continues documentation) Is patient on ventilator? No Is Patient Ambulatory and/or Out of Bed No REE-([place]. Jeor-confined to bed) 2269.308 Kcal/Kg value to use for calculation 21 Approximate Energy Requirements Using 0 kcal/Kg Calculation Used for Recommendations Kcal/kg Additional Notes Protein: 108-135 g (1.2-1.5 g/ kg AdBW 90 kg) Fluid: 1ml/kcal Nutrition Intervention Change Diet Order: Continue diet Add Supplement/Snack (indicate name/kcal Ensure High Protein daily /protein ) Sammy BID Provides kCal: 350 Provides Protein (gm) 21 Goal #1 Meet at least 75% protein and energy needs via PO Goal #2 ONS tolerance Goal #3 Intake of Sammy BID Anticipated Discharge Needs: Regular dier, Sammy BID and Ensure High Protein until wound healed Follow-Up By: 08/25/20 Additional Comments F/u stable intakes, ONS and Sammy tolerance/intake
--- NOTE | 2020-08-22 12:41 | Progress Note ---
Assessment and Plan Acute hypoxemic respiratory failure due to COVID-19 Severe Sepsis Bilateral pneumonia Acute kidney injury (SEN) with acute tubular necrosis (ATN) Severe Deconditioning Alcohol dependence Elevated liver function tests - KCL 40 meq p.o. X 1 - prn BIPAP for increased work of breathing / SOB - no new issues otherwise, continue care as below; - continue PT/OT as tolerated - continue to wean supplemental oxygen for target O2 sat's > 92% acutely (on 4L NC) - continue aspiration precautions - continue psychoactive medications per mental health team - continue bowel regimen - aspiration precautions - continue bronchodilators with pulmonary hygiene per RT - accuchecks with glycemic control per SSI for target blood glucose of < 180 mg/dL; avoid hypoglycemia - repeat COVID-19 testing is negative X 2 - wean systemic steroids for Asthma / severe COVID infection - completed remdesivir dosing (total 5 days) - avoid nephrotoxins, renally dose all medications - continue to avoid benzodiazepine's, reduce the possibility of delirium - prn analgesia per pain score - Maintenance of sleep-wake cycle, avoid delirium - continue to avoid benzodiazepine's, reduce the possibility of delirium - G.I. & VTE prophylaxis with Prevacid & Lovenox - PT/OT/ROM exercises - continue mobility protocols for pressure ulcer prophylaxis - Monitor hemodynamics closely - continue other care per attending / other consultants - discharge planning ongoing concurrently - transfer to telemetry floor ok .... Re-evaluate in am & prn CONDITION: STABLE PROGNOSIS: IMPROVED CODE STATUS: FULL CODE Subjective Date of service: 08/22/20 Principal diagnosis: Ac hypoxemic resp failure; COVID-19; Severe Sepsis; Shaggy PNA; Alcohol Abuse Interval history: Patient is seen today for: Acute hypoxemic respiratory failure due to COVID-19; Severe Sepsis; Bilateral pneumonia; Alcohol dependence; Elevated liver function tests Seen and examined at bedside; 24hour events reviewed; nursing and respiratory care staff consulted; no adverse overnight events reported to me; resting in bed; remains on supplemental oxygen; labs reviewed and will address Objective Vital Signs - 12hr 08/22/20 08/22/20 08/22/20 04:32 08:11 08:21 Temperature 98.0 F 98.4 F Pulse Rate 104 H Respiratory 20 18 Rate Blood Pressure 92/51 110/70 O2 Sat by Pulse 98 93 Oximetry 08/22/20 08/22/20 08/22/20 09:17 10:00 12:05 Temperature 97.7 F Pulse Rate 104 H 96 H Respiratory 18 18 Rate Blood Pressure 97/66 O2 Sat by Pulse 96 96 Oximetry Constitutional: no acute distress, alert, other (middle agen male with mildly increased respiratory effort at rest) Eyes: non-icteric ENT: oropharynx moist, other (extubated) Neck: supple, no JVD Effort: mildly labored Ascultation: Bilateral: diminished breath sounds, rhonchi (scant bases) Percussion: Bilateral: not dull Cardiovascular: regular rate and rhythm, other (No R/M) Gastrointestinal: normoactive bowel sounds, soft, non-tender, non-distended (protuberant) Integumentary: normal Extremities: no cyanosis, no edema, pulses normal, no ischemia or petechiae Neurologic: non-focal exam (non focal grossly; weak), pupils equal and round, CN II-XII normal, other (weak) Psychiatric: mood appropriate, affect normal CBC and BMP: 08/22/20 05:11 08/22/20 05:11 ABG, PT/INR, D-dimer: ABG ABG pH 7.437 (7.320-7.450) 08/11/20 18:43 POC ABG pCO2 51.0 mmHg (32.0-48.0) H 08/11/20 18:43 ABG pCO2 53.1 mm Hg 07/08/20 Unknown POC ABG pO2 84.9 mmHg (83-108) 08/11/20 18:43 ABG pO2 75.3 mm Hg (80.0-90.0) L 07/08/20 Unknown POC ABG HCO3 33.6 08/11/20 18:43 ABG O2 Saturation 96.5 % (95.0-99.0) 07/08/20 Unknown PT/INR, D-dimer PT 11.8 Sec. (12.2-14.9) L 06/22/20 14:29 INR 0.88 (0.87-1.13) 06/22/20 14:29 D-Dimer 1887.82 ng/mlDDU (0-234) H 05/20/20 08:16 Abnormal lab findings: Abnormal Labs 05/09/20 05/09/20 05/09/20 12:59 12:59 12:59 WBC 11.8 H RBC Hgb Hct MCV 96 H MCH 34 H MCHC 35 H RDW Lymph % (Auto) 6.9 L [place] % (Auto) Lymph # (Auto) 0.8 L [place] # (Auto) Baso # (Auto) Seg Neutrophils % 87.5 H Seg Neuts % (Manual) Lymphocytes % (Manual) Nucleated RBC % Seg Neutrophils # 10.3 H Seg Neutrophils # Man Lymphocytes # (Manual) Monocytes # (Manual) Eosinophils # (Manual) PT INR APTT D-Dimer Heparin Anti-Xa Level ABG pH POC ABG pCO2 POC ABG pO2 ABG pO2 ABG HCO3 ABG O2 Saturation ABG Base Excess ABG Hemoglobin ABG Oxyhemoglobin ABG Sodium ABG Potassium ABG Chloride ABG Glucose Oxyhemoglobin Carboxyhemoglobin Sodium 130 L Potassium 3.5 L Chloride 86.4 L Carbon Dioxide BUN 33 H Creatinine 2.3 H Glucose 156 H POC Glucose Lactic Acid Calcium Phosphorus Magnesium Ferritin Total Bilirubin 3.40 H Direct Bilirubin 1.7 H AST 385 H ALT 134 H Alkaline Phosphatase Lactate Dehydrogenase C-Reactive Protein Total Protein Albumin 3.0 L Triglycerides Lipase Arterial Blood Glucose Arterial Blood Ionized Calcium Urine WBC (Auto) Coronavirus (PCR) SARS-CoV-2 IgG Ab Crossmatch 05/09/20 05/09/20 05/09/20 12:59 12:59 12:59 WBC RBC Hgb Hct MCV MCH MCHC RDW Lymph % (Auto) [place] % (Auto) Lymph # (Auto) [place] # (Auto) Baso # (Auto) Seg Neutrophils % Seg Neuts % (Manual) Lymphocytes % (Manual) Nucleated RBC % Seg Neutrophils # Seg Neutrophils # Man Lymphocytes # (Manual) Monocytes # (Manual) Eosinophils # (Manual) PT INR APTT D-Dimer 3242.51 H Heparin Anti-Xa Level ABG pH POC ABG pCO2 POC ABG pO2 ABG pO2 ABG HCO3 ABG O2 Saturation ABG Base Excess ABG Hemoglobin ABG Oxyhemoglobin ABG Sodium ABG Potassium ABG Chloride ABG Glucose Oxyhemoglobin Carboxyhemoglobin Sodium Potassium Chloride Carbon Dioxide BUN Creatinine Glucose 158 H POC Glucose Lactic Acid 3.50 H* Calcium Phosphorus Magnesium Ferritin Total Bilirubin Direct Bilirubin AST ALT Alkaline Phosphatase Lactate Dehydrogenase 2166 H C-Reactive Protein 39.00 H Total Protein Albumin Triglycerides Lipase Arterial Blood Glucose Arterial Blood Ionized Calcium Urine WBC (Auto) Coronavirus (PCR) SARS-CoV-2 IgG Ab Crossmatch 05/09/20 05/09/20 05/09/20 12:59 14:20 14:20 WBC RBC Hgb Hct MCV MCH MCHC RDW Lymph % (Auto) [place] % (Auto) Lymph # (Auto) [place] # (Auto) Baso # (Auto) Seg Neutrophils % Seg Neuts % (Manual) Lymphocytes % (Manual) Nucleated RBC % Seg Neutrophils # Seg Neutrophils # Man Lymphocytes # (Manual) Monocytes # (Manual) Eosinophils # (Manual) PT INR APTT D-Dimer 2861.78 H Heparin Anti-Xa Level ABG pH POC ABG pCO2 POC ABG pO2 ABG pO2 ABG HCO3 ABG O2 Saturation ABG Base Excess ABG Hemoglobin ABG Oxyhemoglobin ABG Sodium ABG Potassium ABG Chloride ABG Glucose Oxyhemoglobin Carboxyhemoglobin Sodium Potassium Chloride Carbon Dioxide BUN Creatinine Glucose POC Glucose Lactic Acid 2.20 H* Calcium Phosphorus Magnesium Ferritin 63596.0 H Total Bilirubin Direct Bilirubin AST ALT Alkaline Phosphatase Lactate Dehydrogenase C-Reactive Protein Total Protein Albumin Triglycerides Lipase Arterial Blood Glucose Arterial Blood Ionized Calcium Urine WBC (Auto) Coronavirus (PCR) SARS-CoV-2 IgG Ab Crossmatch 05/09/20 05/09/20 05/09/20 14:20 14:20 15:56 WBC RBC Hgb Hct MCV MCH MCHC RDW Lymph % (Auto) [place] % (Auto) Lymph # (Auto) [place] # (Auto) Baso # (Auto) Seg Neutrophils % Seg Neuts % (Manual) Lymphocytes % (Manual) Nucleated RBC % Seg Neutrophils # Seg Neutrophils # Man Lymphocytes # (Manual) Monocytes # (Manual) Eosinophils # (Manual) PT INR APTT D-Dimer Heparin Anti-Xa Level ABG pH POC ABG pCO2 POC ABG pO2 57.3 L ABG pO2 ABG HCO3 ABG O2 Saturation ABG Base Excess ABG Hemoglobin ABG Oxyhemoglobin 86.3 L ABG Sodium 129.9 L ABG Potassium ABG Chloride ABG Glucose 146 H Oxyhemoglobin Carboxyhemoglobin Sodium Potassium Chloride Carbon Dioxide BUN Creatinine Glucose 143 H POC Glucose Lactic Acid Calcium Phosphorus Magnesium Ferritin 50921.0 H Total Bilirubin Direct Bilirubin AST ALT Alkaline Phosphatase Lactate Dehydrogenase 1953 H C-Reactive Protein 33.50 H Total Protein Albumin Triglycerides Lipase Arterial Blood Glucose 146 H Arterial Blood Ionized Calcium 3.9 L Urine WBC (Auto) Coronavirus (PCR) SARS-CoV-2 IgG Ab Crossmatch 05/10/20 05/10/20 05/10/20 10:32 10:32 18:50 WBC 15.4 H RBC Hgb Hct MCV 97 H MCH 33 H MCHC RDW 13.1 L Lymph % (Auto) [place] % (Auto) Lymph # (Auto) [place] # (Auto) Baso # (Auto) Seg Neutrophils % Seg Neuts % (Manual) 89.0 H Lymphocytes % (Manual) 8.0 L Nucleated RBC % Seg Neutrophils # Seg Neutrophils # Man 13.7 H Lymphocytes # (Manual) Monocytes # (Manual) Eosinophils # (Manual) PT INR APTT D-Dimer Heparin Anti-Xa Level ABG pH POC ABG pCO2 POC ABG pO2 ABG pO2 ABG HCO3 ABG O2 Saturation ABG Base Excess ABG Hemoglobin ABG Oxyhemoglobin ABG Sodium ABG Potassium ABG Chloride ABG Glucose Oxyhemoglobin Carboxyhemoglobin Sodium 136 L Potassium Chloride 97.4 L Carbon Dioxide BUN 37 H Creatinine 1.7 H Glucose 209 H POC Glucose Lactic Acid Calcium Phosphorus Magnesium Ferritin > 2000.0 H Total Bilirubin Direct Bilirubin AST ALT Alkaline Phosphatase Lactate Dehydrogenase C-Reactive Protein Total Protein Albumin Triglycerides Lipase Arterial Blood Glucose Arterial Blood Ionized Calcium Urine WBC (Auto) Coronavirus (PCR) SARS-CoV-2 IgG Ab Crossmatch 05/10/20 05/10/20 05/10/20 18:50 19:00 Unknown WBC RBC Hgb Hct MCV MCH MCHC RDW Lymph % (Auto) [place] % (Auto) Lymph # (Auto) [place] # (Auto) Baso # (Auto) Seg Neutrophils % Seg Neuts % (Manual) Lymphocytes % (Manual) Nucleated RBC % Seg Neutrophils # Seg Neutrophils # Man Lymphocytes # (Manual) Monocytes # (Manual) Eosinophils # (Manual) PT INR APTT D-Dimer > 75182 H Heparin Anti-Xa Level ABG pH POC ABG pCO2 POC ABG pO2 ABG pO2 ABG HCO3 ABG O2 Saturation ABG Base Excess ABG Hemoglobin ABG Oxyhemoglobin ABG Sodium ABG Potassium ABG Chloride ABG Glucose Oxyhemoglobin Carboxyhemoglobin Sodium Potassium Chloride Carbon Dioxide BUN Creatinine Glucose POC Glucose Lactic Acid Calcium Phosphorus Magnesium Ferritin Total Bilirubin Direct Bilirubin AST ALT Alkaline Phosphatase Lactate Dehydrogenase 1879 H C-Reactive Protein 24.80 H Total Protein Albumin Triglycerides Lipase Arterial Blood Glucose Arterial Blood Ionized Calcium Urine WBC (Auto) 11.0 H Coronavirus (PCR) SARS-CoV-2 IgG Ab Crossmatch 05/10/20 05/11/20 05/11/20 Unknown 07:30 07:30 WBC RBC Hgb Hct MCV MCH MCHC RDW Lymph % (Auto) [place] % (Auto) Lymph # (Auto) [place] # (Auto) Baso # (Auto) Seg Neutrophils % Seg Neuts % (Manual) Lymphocytes % (Manual) Nucleated RBC % Seg Neutrophils # Seg Neutrophils # Man Lymphocytes # (Manual) Monocytes # (Manual) Eosinophils # (Manual) PT INR APTT D-Dimer > 2000 H Heparin Anti-Xa Level ABG pH POC ABG pCO2 POC ABG pO2 ABG pO2 ABG HCO3 ABG O2 Saturation ABG Base Excess ABG Hemoglobin ABG Oxyhemoglobin ABG Sodium ABG Potassium ABG Chloride ABG Glucose Oxyhemoglobin Carboxyhemoglobin Sodium Potassium Chloride 96.3 L Carbon Dioxide BUN 36 H Creatinine Glucose 161 H POC Glucose Lactic Acid Calcium 8.3 L Phosphorus Magnesium Ferritin Total Bilirubin 1.50 H Direct Bilirubin 0.6 H AST 178 H ALT 111 H Alkaline Phosphatase Lactate Dehydrogenase C-Reactive Protein Total Protein Albumin 3.0 L Triglycerides Lipase Arterial Blood Glucose Arterial Blood Ionized Calcium Urine WBC (Auto) Coronavirus (PCR) Positive A SARS-CoV-2 IgG Ab Crossmatch 05/11/20 05/11/20 05/11/20 07:30 07:30 07:30 WBC RBC Hgb Hct MCV MCH MCHC RDW Lymph % (Auto) [place] % (Auto) Lymph # (Auto) [place] # (Auto) Baso # (Auto) Seg Neutrophils % Seg Neuts % (Manual) Lymphocytes % (Manual) Nucleated RBC % Seg Neutrophils # Seg Neutrophils # Man Lymphocytes # (Manual) Monocytes # (Manual) Eosinophils # (Manual) PT INR APTT D-Dimer Heparin Anti-Xa Level ABG pH POC ABG pCO2 POC ABG pO2 ABG pO2 ABG HCO3 ABG O2 Saturation ABG Base Excess ABG Hemoglobin ABG Oxyhemoglobin ABG Sodium ABG Potassium ABG Chloride ABG Glucose Oxyhemoglobin Carboxyhemoglobin Sodium Potassium Chloride Carbon Dioxide BUN Creatinine Glucose POC Glucose Lactic Acid Calcium Phosphorus Magnesium Ferritin 42177.0 H Total Bilirubin Direct Bilirubin AST ALT Alkaline Phosphatase Lactate Dehydrogenase 1523 H C-Reactive Protein 12.90 H Total Protein Albumin Triglycerides Lipase Arterial Blood Glucose Arterial Blood Ionized Calcium Urine WBC (Auto) Coronavirus (PCR) SARS-CoV-2 IgG Ab Reactive A Crossmatch 05/13/20 05/13/20 05/15/20 05:20 05:20 08:15 WBC RBC Hgb Hct MCV MCH MCHC RDW Lymph % (Auto) [place] % (Auto) Lymph # (Auto) [place] # (Auto) Baso # (Auto) Seg Neutrophils % Seg Neuts % (Manual) Lymphocytes % (Manual) Nucleated RBC % Seg Neutrophils # Seg Neutrophils # Man Lymphocytes # (Manual) Monocytes # (Manual) Eosinophils # (Manual) PT INR APTT D-Dimer > 99770 H 5318.28 H Heparin Anti-Xa Level ABG pH POC ABG pCO2 POC ABG pO2 ABG pO2 ABG HCO3 ABG O2 Saturation ABG Base Excess ABG Hemoglobin ABG Oxyhemoglobin ABG Sodium ABG Potassium ABG Chloride ABG Glucose Oxyhemoglobin Carboxyhemoglobin Sodium Potassium Chloride Carbon Dioxide 32 H BUN 30 H Creatinine Glucose 156 H POC Glucose Lactic Acid Calcium Phosphorus Magnesium 2.60 H Ferritin Total Bilirubin 1.40 H Direct Bilirubin AST 121 H ALT 119 H Alkaline Phosphatase Lactate Dehydrogenase 957 H C-Reactive Protein 4.00 H Total Protein Albumin 3.0 L Triglycerides Lipase Arterial Blood Glucose Arterial Blood Ionized Calcium Urine WBC (Auto) Coronavirus (PCR) SARS-CoV-2 IgG Ab Crossmatch 05/15/20 05/15/20 05/15/20 08:15 08:15 08:15 WBC 12.4 H RBC Hgb Hct MCV 98 H MCH 33 H MCHC RDW Lymph % (Auto) 9.7 L [place] % (Auto) Lymph # (Auto) [place] # (Auto) Baso # (Auto) Seg Neutrophils % 86.8 H Seg Neuts % (Manual) Lymphocytes % (Manual) Nucleated RBC % Seg Neutrophils # 10.8 H Seg Neutrophils # Man Lymphocytes # (Manual) Monocytes # (Manual) Eosinophils # (Manual) PT INR APTT D-Dimer Heparin Anti-Xa Level ABG pH POC ABG pCO2 POC ABG pO2 ABG pO2 ABG HCO3 ABG O2 Saturation ABG Base Excess ABG Hemoglobin ABG Oxyhemoglobin ABG Sodium ABG Potassium ABG Chloride ABG Glucose Oxyhemoglobin Carboxyhemoglobin Sodium Potassium Chloride 94.8 L Carbon Dioxide 32 H BUN 22 H Creatinine Glucose 115 H POC Glucose Lactic Acid Calcium 8.3 L Phosphorus Magnesium Ferritin 2494.0 H Total Bilirubin Direct Bilirubin AST 73 H ALT 121 H Alkaline Phosphatase Lactate Dehydrogenase 835 H C-Reactive Protein 3.40 H Total Protein 6.1 L Albumin 3.0 L Triglycerides Lipase Arterial Blood Glucose Arterial Blood Ionized Calcium Urine WBC (Auto) Coronavirus (PCR) SARS-CoV-2 IgG Ab Crossmatch 05/17/20 05/17/20 05/17/20 05:50 05:50 05:50 WBC RBC Hgb Hct MCV MCH MCHC RDW Lymph % (Auto) [place] % (Auto) Lymph # (Auto) [place] # (Auto) Baso # (Auto) Seg Neutrophils % Seg Neuts % (Manual) Lymphocytes % (Manual) Nucleated RBC % Seg Neutrophils # Seg Neutrophils # Man Lymphocytes # (Manual) Monocytes # (Manual) Eosinophils # (Manual) PT INR APTT D-Dimer 2911.42 H Heparin Anti-Xa Level ABG pH POC ABG pCO2 POC ABG pO2 ABG pO2 ABG HCO3 ABG O2 Saturation ABG Base Excess ABG Hemoglobin ABG Oxyhemoglobin ABG Sodium ABG Potassium ABG Chloride ABG Glucose Oxyhemoglobin Carboxyhemoglobin Sodium 136 L Potassium Chloride 96.0 L Carbon Dioxide 34 H BUN 22 H Creatinine Glucose 140 H POC Glucose Lactic Acid Calcium Phosphorus Magnesium Ferritin 2082.0 H Total Bilirubin Direct Bilirubin AST ALT 75 H Alkaline Phosphatase Lactate Dehydrogenase 601 H C-Reactive Protein 2.70 H Total Protein Albumin 2.9 L Triglycerides Lipase Arterial Blood Glucose Arterial Blood Ionized Calcium Urine WBC (Auto) Coronavirus (PCR) SARS-CoV-2 IgG Ab Crossmatch 05/17/20 05/18/20 05/20/20 05:50 12:22 08:16 WBC RBC Hgb Hct MCV 98 H MCH 33 H MCHC RDW Lymph % (Auto) 8.0 L [place] % (Auto) Lymph # (Auto) 0.8 L [place] # (Auto) Baso # (Auto) Seg Neutrophils % 89.3 H Seg Neuts % (Manual) Lymphocytes % (Manual) Nucleated RBC % Seg Neutrophils # 8.8 H Seg Neutrophils # Man Lymphocytes # (Manual) Monocytes # (Manual) Eosinophils # (Manual) PT INR APTT D-Dimer 1887.82 H Heparin Anti-Xa Level ABG pH POC ABG pCO2 POC ABG pO2 ABG pO2 ABG HCO3 ABG O2 Saturation ABG Base Excess ABG Hemoglobin ABG Oxyhemoglobin ABG Sodium ABG Potassium ABG Chloride ABG Glucose Oxyhemoglobin Carboxyhemoglobin Sodium Potassium Chloride Carbon Dioxide BUN Creatinine Glucose POC Glucose 178 H Lactic Acid Calcium Phosphorus Magnesium Ferritin Total Bilirubin Direct Bilirubin AST ALT Alkaline Phosphatase Lactate Dehydrogenase C-Reactive Protein Total Protein Albumin Triglycerides Lipase Arterial Blood Glucose Arterial Blood Ionized Calcium Urine WBC (Auto) Coronavirus (PCR) SARS-CoV-2 IgG Ab Crossmatch 05/20/20 05/20/20 05/21/20 08:16 08:16 21:10 WBC RBC Hgb Hct MCV MCH MCHC RDW Lymph % (Auto) [place] % (Auto) Lymph # (Auto) [place] # (Auto) Baso # (Auto) Seg Neutrophils % Seg Neuts % (Manual) Lymphocytes % (Manual) Nucleated RBC % Seg Neutrophils # Seg Neutrophils # Man Lymphocytes # (Manual) Monocytes # (Manual) Eosinophils # (Manual) PT INR APTT D-Dimer Heparin Anti-Xa Level ABG pH 7.483 H POC ABG pCO2 POC ABG pO2 ABG pO2 50.0 L ABG HCO3 27.0 H ABG O2 Saturation 86.2 L ABG Base Excess 3.7 H ABG Hemoglobin ABG Oxyhemoglobin ABG Sodium ABG Potassium ABG Chloride ABG Glucose Oxyhemoglobin 84.2 L Carboxyhemoglobin Sodium Potassium Chloride Carbon Dioxide BUN Creatinine Glucose POC Glucose Lactic Acid Calcium Phosphorus Magnesium Ferritin 1960.0 H Total Bilirubin Direct Bilirubin AST ALT Alkaline Phosphatase Lactate Dehydrogenase 705 H C-Reactive Protein 3.10 H Total Protein Albumin Triglycerides Lipase Arterial Blood Glucose Arterial Blood Ionized Calcium Urine WBC (Auto) Coronavirus (PCR) SARS-CoV-2 IgG Ab Crossmatch 05/22/20 05/22/20 05/22/20 04:01 07:53 07:53 WBC 19.2 H RBC Hgb Hct MCV 98 H MCH 34 H MCHC RDW Lymph % (Auto) [place] % (Auto) Lymph # (Auto) [place] # (Auto) Baso # (Auto) Seg Neutrophils % Seg Neuts % (Manual) 96.0 H Lymphocytes % (Manual) 1.0 L Nucleated RBC % Seg Neutrophils # Seg Neutrophils # Man 18.4 H Lymphocytes # (Manual) 0.2 L Monocytes # (Manual) Eosinophils # (Manual) PT INR APTT D-Dimer Heparin Anti-Xa Level ABG pH POC ABG pCO2 53.8 H POC ABG pO2 125.5 H ABG pO2 ABG HCO3 ABG O2 Saturation ABG Base Excess ABG Hemoglobin ABG Oxyhemoglobin ABG Sodium 131.8 L ABG Potassium 4.8 H ABG Chloride 94.0 L ABG Glucose 163 H Oxyhemoglobin Carboxyhemoglobin Sodium 131 L Potassium Chloride 93.4 L Carbon Dioxide BUN 40 H Creatinine Glucose 176 H POC Glucose Lactic Acid Calcium Phosphorus Magnesium 2.70 H Ferritin Total Bilirubin 1.80 H Direct Bilirubin AST 45 H ALT 116 H Alkaline Phosphatase 181 H Lactate Dehydrogenase C-Reactive Protein Total Protein Albumin 2.6 L Triglycerides Lipase Arterial Blood Glucose 163 H Arterial Blood Ionized Calcium 4.5 L Urine WBC (Auto) Coronavirus (PCR) SARS-CoV-2 IgG Ab Crossmatch 05/23/20 05/24/20 05/24/20 04:17 03:07 04:08 WBC RBC Hgb Hct MCV MCH MCHC RDW Lymph % (Auto) [place] % (Auto) Lymph # (Auto) [place] # (Auto) Baso # (Auto) Seg Neutrophils % Seg Neuts % (Manual) Lymphocytes % (Manual) Nucleated RBC % Seg Neutrophils # Seg Neutrophils # Man Lymphocytes # (Manual) Monocytes # (Manual) Eosinophils # (Manual) PT INR APTT D-Dimer Heparin Anti-Xa Level ABG pH 7.328 L POC ABG pCO2 POC ABG pO2 ABG pO2 72.8 L 73.4 L ABG HCO3 31.0 H 34.0 H ABG O2 Saturation 93.5 L ABG Base Excess 3.5 H 7.7 H ABG Hemoglobin 13.3 L 12.1 L ABG Oxyhemoglobin ABG Sodium ABG Potassium ABG Chloride ABG Glucose Oxyhemoglobin 91.5 L 94.3 L Carboxyhemoglobin Sodium Potassium Chloride Carbon Dioxide BUN Creatinine Glucose POC Glucose 155 H Lactic Acid Calcium Phosphorus Magnesium Ferritin Total Bilirubin Direct Bilirubin AST ALT Alkaline Phosphatase Lactate Dehydrogenase C-Reactive Protein Total Protein Albumin Triglycerides Lipase Arterial Blood Glucose Arterial Blood Ionized Calcium Urine WBC (Auto) Coronavirus (PCR) SARS-CoV-2 IgG Ab Crossmatch 05/24/20 05/24/20 05/24/20 09:33 12:21 17:52 WBC RBC Hgb Hct MCV MCH MCHC RDW Lymph % (Auto) [place] % (Auto) Lymph # (Auto) [place] # (Auto) Baso # (Auto) Seg Neutrophils % Seg Neuts % (Manual) Lymphocytes % (Manual) Nucleated RBC % Seg Neutrophils # Seg Neutrophils # Man Lymphocytes # (Manual) Monocytes # (Manual) Eosinophils # (Manual) PT INR APTT D-Dimer Heparin Anti-Xa Level ABG pH POC ABG pCO2 POC ABG pO2 ABG pO2 ABG HCO3 ABG O2 Saturation ABG Base Excess ABG Hemoglobin ABG Oxyhemoglobin ABG Sodium ABG Potassium ABG Chloride ABG Glucose Oxyhemoglobin Carboxyhemoglobin Sodium Potassium Chloride Carbon Dioxide 34 H D BUN 28 H Creatinine 0.7 L Glucose 168 H POC Glucose 173 H 164 H Lactic Acid Calcium Phosphorus Magnesium Ferritin Total Bilirubin Direct Bilirubin AST ALT Alkaline Phosphatase Lactate Dehydrogenase C-Reactive Protein Total Protein Albumin Triglycerides Lipase Arterial Blood Glucose Arterial Blood Ionized Calcium Urine WBC (Auto) Coronavirus (PCR) SARS-CoV-2 IgG Ab Crossmatch 05/24/20 05/25/20 05/25/20 23:47 04:29 05:46 WBC RBC Hgb Hct MCV MCH MCHC RDW Lymph % (Auto) [place] % (Auto) Lymph # (Auto) [place] # (Auto) Baso # (Auto) Seg Neutrophils % Seg Neuts % (Manual) Lymphocytes % (Manual) Nucleated RBC % Seg Neutrophils # Seg Neutrophils # Man Lymphocytes # (Manual) Monocytes # (Manual) Eosinophils # (Manual) PT INR APTT D-Dimer Heparin Anti-Xa Level ABG pH POC ABG pCO2 68.6 H POC ABG pO2 ABG pO2 ABG HCO3 ABG O2 Saturation ABG Base Excess ABG Hemoglobin ABG Oxyhemoglobin ABG Sodium ABG Potassium 4.7 H ABG Chloride ABG Glucose 226 H Oxyhemoglobin Carboxyhemoglobin Sodium Potassium Chloride Carbon Dioxide BUN Creatinine Glucose POC Glucose 171 H 201 H Lactic Acid Calcium Phosphorus Magnesium Ferritin Total Bilirubin Direct Bilirubin AST ALT Alkaline Phosphatase Lactate Dehydrogenase C-Reactive Protein Total Protein Albumin Triglycerides Lipase Arterial Blood Glucose 226 H Arterial Blood Ionized Calcium Urine WBC (Auto) Coronavirus (PCR) SARS-CoV-2 IgG Ab Crossmatch 05/25/20 05/25/20 05/25/20 08:37 08:37 12:38 WBC 12.0 H RBC 3.64 L Hgb Hct MCV 99 H MCH 33 H MCHC RDW Lymph % (Auto) [place] % (Auto) Lymph # (Auto) [place] # (Auto) Baso # (Auto) Seg Neutrophils % Seg Neuts % (Manual) Lymphocytes % (Manual) Nucleated RBC % Seg Neutrophils # Seg Neutrophils # Man Lymphocytes # (Manual) Monocytes # (Manual) Eosinophils # (Manual) PT INR APTT D-Dimer Heparin Anti-Xa Level ABG pH POC ABG pCO2 POC ABG pO2 ABG pO2 ABG HCO3 ABG O2 Saturation ABG Base Excess ABG Hemoglobin ABG Oxyhemoglobin ABG Sodium ABG Potassium ABG Chloride ABG Glucose Oxyhemoglobin Carboxyhemoglobin Sodium Potassium Chloride 97.3 L Carbon Dioxide 35 H BUN 25 H Creatinine 0.7 L Glucose 191 H POC Glucose 182 H Lactic Acid Calcium Phosphorus Magnesium Ferritin Total Bilirubin Direct Bilirubin AST ALT Alkaline Phosphatase Lactate Dehydrogenase C-Reactive Protein Total Protein Albumin Triglycerides Lipase Arterial Blood Glucose Arterial Blood Ionized Calcium Urine WBC (Auto) Coronavirus (PCR) SARS-CoV-2 IgG Ab Crossmatch 05/25/20 05/26/20 05/26/20 18:16 00:06 04:50 WBC RBC Hgb Hct MCV MCH MCHC RDW Lymph % (Auto) [place] % (Auto) Lymph # (Auto) [place] # (Auto) Baso # (Auto) Seg Neutrophils % Seg Neuts % (Manual) Lymphocytes % (Manual) Nucleated RBC % Seg Neutrophils # Seg Neutrophils # Man Lymphocytes # (Manual) Monocytes # (Manual) Eosinophils # (Manual) PT INR APTT D-Dimer Heparin Anti-Xa Level ABG pH POC ABG pCO2 POC ABG pO2 ABG pO2 221.5 H ABG HCO3 40.4 H ABG O2 Saturation 99.3 H ABG Base Excess 12.8 H ABG Hemoglobin 10.4 L ABG Oxyhemoglobin ABG Sodium ABG Potassium ABG Chloride ABG Glucose Oxyhemoglobin Carboxyhemoglobin Sodium Potassium Chloride Carbon Dioxide BUN Creatinine Glucose POC Glucose 176 H 152 H Lactic Acid Calcium Phosphorus Magnesium Ferritin Total Bilirubin Direct Bilirubin AST ALT Alkaline Phosphatase Lactate Dehydrogenase C-Reactive Protein Total Protein Albumin Triglycerides Lipase Arterial Blood Glucose Arterial Blood Ionized Calcium Urine WBC (Auto) Coronavirus (PCR) SARS-CoV-2 IgG Ab Crossmatch 05/26/20 05/26/20 05/26/20 06:11 07:51 07:51 WBC 13.4 H RBC 3.64 L Hgb Hct MCV 98 H MCH 33 H MCHC RDW Lymph % (Auto) [place] % (Auto) Lymph # (Auto) [place] [place] # (Auto) Baso # (Auto) Seg Neutrophils % Seg Neuts % (Manual) Lymphocytes % (Manual) Nucleated RBC % Seg Neutrophils # Seg Neutrophils # Man Lymphocytes # (Manual) Monocytes # (Manual) Eosinophils # (Manual) PT INR APTT D-Dimer Heparin Anti-Xa Level ABG pH POC ABG pCO2 POC ABG pO2 ABG pO2 ABG HCO3 ABG O2 Saturation ABG Base Excess ABG Hemoglobin ABG Oxyhemoglobin ABG Sodium ABG Potassium ABG Chloride ABG Glucose Oxyhemoglobin Carboxyhemoglobin Sodium Potassium Chloride 96.6 L Carbon Dioxide 39 H BUN 29 H Creatinine 0.7 L Glucose 174 H POC Glucose 165 H Lactic Acid Calcium Phosphorus Magnesium Ferritin Total Bilirubin Direct Bilirubin AST ALT Alkaline Phosphatase Lactate Dehydrogenase C-Reactive Protein Total Protein Albumin Triglycerides Lipase Arterial Blood Glucose Arterial Blood Ionized Calcium Urine WBC (Auto) Coronavirus (PCR) SARS-CoV-2 IgG Ab Crossmatch 05/26/20 05/27/20 05/27/20 23:23 03:43 05:29 WBC RBC Hgb Hct MCV MCH MCHC RDW Lymph % (Auto) [place] % (Auto) Lymph # (Auto) [place] # (Auto) Baso # (Auto) Seg Neutrophils % Seg Neuts % (Manual) Lymphocytes % (Manual) Nucleated RBC % Seg Neutrophils # Seg Neutrophils # Man Lymphocytes # (Manual) Monocytes # (Manual) Eosinophils # (Manual) PT INR APTT D-Dimer Heparin Anti-Xa Level ABG pH 7.480 H POC ABG pCO2 52.4 H POC ABG pO2 61.4 L ABG pO2 ABG HCO3 ABG O2 Saturation ABG Base Excess ABG Hemoglobin ABG Oxyhemoglobin ABG Sodium 134.9 L ABG Potassium ABG Chloride 95.0 L ABG Glucose 221 H Oxyhemoglobin Carboxyhemoglobin Sodium Potassium Chloride Carbon Dioxide BUN Creatinine Glucose POC Glucose 169 H 227 H Lactic Acid Calcium Phosphorus Magnesium Ferritin Total Bilirubin Direct Bilirubin AST ALT Alkaline Phosphatase Lactate Dehydrogenase C-Reactive Protein Total Protein Albumin Triglycerides Lipase Arterial Blood Glucose 221 H Arterial Blood Ionized Calcium 4.5 L Urine WBC (Auto) Coronavirus (PCR) SARS-CoV-2 IgG Ab Crossmatch 05/27/20 05/27/20 05/27/20 07:19 12:18 13:50 WBC RBC Hgb Hct MCV MCH MCHC RDW Lymph % (Auto) [place] % (Auto) Lymph # (Auto) [place] # (Auto) Baso # (Auto) Seg Neutrophils % Seg Neuts % (Manual) Lymphocytes % (Manual) Nucleated RBC % Seg Neutrophils # Seg Neutrophils # Man Lymphocytes # (Manual) Monocytes # (Manual) Eosinophils # (Manual) PT INR APTT D-Dimer Heparin Anti-Xa Level ABG pH POC ABG pCO2 POC ABG pO2 ABG pO2 ABG HCO3 ABG O2 Saturation ABG Base Excess ABG Hemoglobin ABG Oxyhemoglobin ABG Sodium ABG Potassium ABG Chloride ABG Glucose Oxyhemoglobin Carboxyhemoglobin Sodium Potassium Chloride Carbon Dioxide BUN Creatinine Glucose POC Glucose 114 H 148 H Lactic Acid Calcium Phosphorus Magnesium Ferritin Total Bilirubin Direct Bilirubin AST ALT Alkaline Phosphatase Lactate Dehydrogenase C-Reactive Protein Total Protein Albumin Triglycerides 247 H Lipase Arterial Blood Glucose Arterial Blood Ionized Calcium Urine WBC (Auto) Coronavirus (PCR) SARS-CoV-2 IgG Ab Crossmatch 05/28/20 05/28/20 05/28/20 00:13 04:16 05:22 WBC RBC Hgb Hct MCV MCH MCHC RDW Lymph % (Auto) [place] % (Auto) Lymph # (Auto) [place] # (Auto) Baso # (Auto) Seg Neutrophils % Seg Neuts % (Manual) Lymphocytes % (Manual) Nucleated RBC % Seg Neutrophils # Seg Neutrophils # Man Lymphocytes # (Manual) Monocytes # (Manual) Eosinophils # (Manual) PT INR APTT D-Dimer Heparin Anti-Xa Level ABG pH POC ABG pCO2 64.4 H POC ABG pO2 60.5 L ABG pO2 ABG HCO3 ABG O2 Saturation ABG Base Excess ABG Hemoglobin ABG Oxyhemoglobin ABG Sodium ABG Potassium ABG Chloride 95.0 L ABG Glucose 209 H Oxyhemoglobin Carboxyhemoglobin Sodium Potassium Chloride Carbon Dioxide BUN Creatinine Glucose POC Glucose 155 H 186 H Lactic Acid Calcium Phosphorus Magnesium Ferritin Total Bilirubin Direct Bilirubin AST ALT Alkaline Phosphatase Lactate Dehydrogenase C-Reactive Protein Total Protein Albumin Triglycerides Lipase Arterial Blood Glucose 209 H Arterial Blood Ionized Calcium Urine WBC (Auto) Coronavirus (PCR) SARS-CoV-2 IgG Ab Crossmatch 05/28/20 05/28/20 05/29/20 12:45 17:39 00:37 WBC RBC Hgb Hct MCV MCH MCHC RDW Lymph % (Auto) [place] % (Auto) Lymph # (Auto) [place] # (Auto) Baso # (Auto) Seg Neutrophils % Seg Neuts % (Manual) Lymphocytes % (Manual) Nucleated RBC % Seg Neutrophils # Seg Neutrophils # Man Lymphocytes # (Manual) Monocytes # (Manual) Eosinophils # (Manual) PT INR APTT D-Dimer Heparin Anti-Xa Level ABG pH POC ABG pCO2 POC ABG pO2 ABG pO2 ABG HCO3 ABG O2 Saturation ABG Base Excess ABG Hemoglobin ABG Oxyhemoglobin ABG Sodium ABG Potassium ABG Chloride ABG Glucose Oxyhemoglobin Carboxyhemoglobin Sodium Potassium Chloride Carbon Dioxide BUN Creatinine Glucose POC Glucose 143 H 164 H 221 H Lactic Acid Calcium Phosphorus Magnesium Ferritin Total Bilirubin Direct Bilirubin AST ALT Alkaline Phosphatase Lactate Dehydrogenase C-Reactive Protein Total Protein Albumin Triglycerides Lipase Arterial Blood Glucose Arterial Blood Ionized Calcium Urine WBC (Auto) Coronavirus (PCR) SARS-CoV-2 IgG Ab Crossmatch 05/29/20 05/29/20 05/29/20 04:15 05:33 12:34 WBC RBC Hgb Hct MCV MCH MCHC RDW Lymph % (Auto) [place] % (Auto) Lymph # (Auto) [place] # (Auto) Baso # (Auto) Seg Neutrophils % Seg Neuts % (Manual) Lymphocytes % (Manual) Nucleated RBC % Seg Neutrophils # Seg Neutrophils # Man Lymphocytes # (Manual) Monocytes # (Manual) Eosinophils # (Manual) PT INR APTT D-Dimer Heparin Anti-Xa Level ABG pH 7.463 H POC ABG pCO2 56.3 H POC ABG pO2 81.2 L ABG pO2 ABG HCO3 ABG O2 Saturation ABG Base Excess ABG Hemoglobin ABG Oxyhemoglobin ABG Sodium ABG Potassium ABG Chloride 96.0 L ABG Glucose 194 H Oxyhemoglobin Carboxyhemoglobin Sodium Potassium Chloride Carbon Dioxide BUN Creatinine Glucose POC Glucose 133 H 221 H Lactic Acid Calcium Phosphorus Magnesium Ferritin Total Bilirubin Direct Bilirubin AST ALT Alkaline Phosphatase Lactate Dehydrogenase C-Reactive Protein Total Protein Albumin Triglycerides Lipase Arterial Blood Glucose 194 H Arterial Blood Ionized Calcium 4.5 L Urine WBC (Auto) Coronavirus (PCR) SARS-CoV-2 IgG Ab Crossmatch 05/29/20 05/30/20 05/30/20 18:07 00:12 05:38 WBC RBC Hgb Hct MCV MCH MCHC RDW Lymph % (Auto) [place] % (Auto) Lymph # (Auto) [place] # (Auto) Baso # (Auto) Seg Neutrophils % Seg Neuts % (Manual) Lymphocytes % (Manual) Nucleated RBC % Seg Neutrophils # Seg Neutrophils # Man Lymphocytes # (Manual) Monocytes # (Manual) Eosinophils # (Manual) PT INR APTT D-Dimer Heparin Anti-Xa Level ABG pH POC ABG pCO2 POC ABG pO2 ABG pO2 ABG HCO3 ABG O2 Saturation ABG Base Excess ABG Hemoglobin ABG Oxyhemoglobin ABG Sodium ABG Potassium ABG Chloride ABG Glucose Oxyhemoglobin Carboxyhemoglobin Sodium Potassium Chloride Carbon Dioxide BUN Creatinine Glucose POC Glucose 162 H 190 H 208 H Lactic Acid Calcium Phosphorus Magnesium Ferritin Total Bilirubin Direct Bilirubin AST ALT Alkaline Phosphatase Lactate Dehydrogenase C-Reactive Protein Total Protein Albumin Triglycerides Lipase Arterial Blood Glucose Arterial Blood Ionized Calcium Urine WBC (Auto) Coronavirus (PCR) SARS-CoV-2 IgG Ab Crossmatch 05/30/20 05/30/20 05/30/20 09:30 11:35 11:54 WBC 12.4 H RBC 3.48 L Hgb 11.3 L Hct 34.6 L MCV 99 H MCH 33 H MCHC RDW Lymph % (Auto) [place] % (Auto) Lymph # (Auto) [place] # (Auto) Baso # (Auto) Seg Neutrophils % Seg Neuts % (Manual) Lymphocytes % (Manual) Nucleated RBC % Seg Neutrophils # Seg Neutrophils # Man Lymphocytes # (Manual) Monocytes # (Manual) Eosinophils # (Manual) PT INR APTT D-Dimer Heparin Anti-Xa Level ABG pH 7.455 H POC ABG pCO2 57.5 H POC ABG pO2 81.5 L ABG pO2 ABG HCO3 ABG O2 Saturation ABG Base Excess ABG Hemoglobin ABG Oxyhemoglobin ABG Sodium ABG Potassium ABG Chloride 96.0 L ABG Glucose 204 H Oxyhemoglobin Carboxyhemoglobin Sodium Potassium Chloride Carbon Dioxide BUN Creatinine Glucose POC Glucose 183 H Lactic Acid Calcium Phosphorus Magnesium Ferritin Total Bilirubin Direct Bilirubin AST ALT Alkaline Phosphatase Lactate Dehydrogenase C-Reactive Protein Total Protein Albumin Triglycerides Lipase Arterial Blood Glucose 204 H Arterial Blood Ionized Calcium Urine WBC (Auto) Coronavirus (PCR) SARS-CoV-2 IgG Ab Crossmatch 05/30/20 05/31/20 05/31/20 18:01 00:10 03:22 WBC RBC Hgb Hct MCV MCH MCHC RDW Lymph % (Auto) [place] % (Auto) Lymph # (Auto) [place] # (Auto) Baso # (Auto) Seg Neutrophils % Seg Neuts % (Manual) Lymphocytes % (Manual) Nucleated RBC % Seg Neutrophils # Seg Neutrophils # Man Lymphocytes # (Manual) Monocytes # (Manual) Eosinophils # (Manual) PT INR APTT D-Dimer Heparin Anti-Xa Level ABG pH POC ABG pCO2 60.4 H POC ABG pO2 71.5 L ABG pO2 ABG HCO3 ABG O2 Saturation ABG Base Excess ABG Hemoglobin ABG Oxyhemoglobin ABG Sodium ABG Potassium ABG Chloride 96.0 L ABG Glucose 169 H Oxyhemoglobin Carboxyhemoglobin Sodium Potassium Chloride Carbon Dioxide BUN Creatinine Glucose POC Glucose 184 H 135 H Lactic Acid Calcium Phosphorus Magnesium Ferritin Total Bilirubin Direct Bilirubin AST ALT Alkaline Phosphatase Lactate Dehydrogenase C-Reactive Protein Total Protein Albumin Triglycerides Lipase Arterial Blood Glucose 169 H Arterial Blood Ionized Calcium 4.5 L Urine WBC (Auto) Coronavirus (PCR) SARS-CoV-2 IgG Ab Crossmatch 05/31/20 05/31/20 05/31/20 05:24 11:18 14:41 WBC RBC Hgb Hct MCV MCH MCHC RDW Lymph % (Auto) [place] % (Auto) Lymph # (Auto) [place] # (Auto) Baso # (Auto) Seg Neutrophils % Seg Neuts % (Manual) Lymphocytes % (Manual) Nucleated RBC % Seg Neutrophils # Seg Neutrophils # Man Lymphocytes # (Manual) Monocytes # (Manual) Eosinophils # (Manual) PT INR APTT D-Dimer Heparin Anti-Xa Level ABG pH POC ABG pCO2 POC ABG pO2 ABG pO2 ABG HCO3 ABG O2 Saturation ABG Base Excess ABG Hemoglobin ABG Oxyhemoglobin ABG Sodium ABG Potassium ABG Chloride ABG Glucose Oxyhemoglobin Carboxyhemoglobin Sodium Potassium Chloride 96.8 L Carbon Dioxide 37 H BUN 31 H Creatinine 0.6 L Glucose 213 H POC Glucose 164 H 208 H Lactic Acid Calcium Phosphorus Magnesium Ferritin Total Bilirubin Direct Bilirubin AST ALT Alkaline Phosphatase Lactate Dehydrogenase C-Reactive Protein Total Protein Albumin Triglycerides Lipase Arterial Blood Glucose Arterial Blood Ionized Calcium Urine WBC (Auto) Coronavirus (PCR) SARS-CoV-2 IgG Ab Crossmatch 05/31/20 05/31/20 06/01/20 17:37 23:47 03:48 WBC RBC Hgb Hct MCV MCH MCHC RDW Lymph % (Auto) [place] % (Auto) Lymph # (Auto) [place] # (Auto) Baso # (Auto) Seg Neutrophils % Seg Neuts % (Manual) Lymphocytes % (Manual) Nucleated RBC % Seg Neutrophils # Seg Neutrophils # Man Lymphocytes # (Manual) Monocytes # (Manual) Eosinophils # (Manual) PT INR APTT D-Dimer Heparin Anti-Xa Level ABG pH POC ABG pCO2 59.7 H POC ABG pO2 73.9 L ABG pO2 ABG HCO3 ABG O2 Saturation ABG Base Excess ABG Hemoglobin ABG Oxyhemoglobin ABG Sodium ABG Potassium ABG Chloride 95.0 L ABG Glucose 256 H Oxyhemoglobin Carboxyhemoglobin Sodium Potassium Chloride Carbon Dioxide BUN Creatinine Glucose POC Glucose 168 H 178 H Lactic Acid Calcium Phosphorus Magnesium Ferritin Total Bilirubin Direct Bilirubin AST ALT Alkaline Phosphatase Lactate Dehydrogenase C-Reactive Protein Total Protein Albumin Triglycerides Lipase Arterial Blood Glucose 256 H Arterial Blood Ionized Calcium Urine WBC (Auto) Coronavirus (PCR) SARS-CoV-2 IgG Ab Crossmatch 06/01/20 06/01/20 06/01/20 05:01 07:47 07:47 WBC 14.4 H RBC 3.46 L Hgb 11.1 L Hct 34.3 L MCV 99 H MCH MCHC RDW Lymph % (Auto) [place] % (Auto) Lymph # (Auto) [place] # (Auto) Baso # (Auto) Seg Neutrophils % Seg Neuts % (Manual) 86.0 H Lymphocytes % (Manual) 9.0 L Nucleated RBC % Seg Neutrophils # Seg Neutrophils # Man 12.4 H Lymphocytes # (Manual) Monocytes # (Manual) Eosinophils # (Manual) PT INR APTT D-Dimer Heparin Anti-Xa Level ABG pH POC ABG pCO2 POC ABG pO2 ABG pO2 ABG HCO3 ABG O2 Saturation ABG Base Excess ABG Hemoglobin ABG Oxyhemoglobin ABG Sodium ABG Potassium ABG Chloride ABG Glucose Oxyhemoglobin Carboxyhemoglobin Sodium Potassium Chloride Carbon Dioxide BUN Creatinine Glucose POC Glucose 197 H Lactic Acid Calcium Phosphorus Magnesium Ferritin Total Bilirubin Direct Bilirubin AST ALT Alkaline Phosphatase Lactate Dehydrogenase C-Reactive Protein Total Protein Albumin Triglycerides 244 H Lipase Arterial Blood Glucose Arterial Blood Ionized Calcium Urine WBC (Auto) Coronavirus (PCR) SARS-CoV-2 IgG Ab Crossmatch 06/01/20 06/01/20 06/01/20 07:47 11:46 18:15 WBC RBC Hgb Hct MCV MCH MCHC RDW Lymph % (Auto) [place] % (Auto) Lymph # (Auto) [place] # (Auto) Baso # (Auto) Seg Neutrophils % Seg Neuts % (Manual) Lymphocytes % (Manual) Nucleated RBC % Seg Neutrophils # Seg Neutrophils # Man Lymphocytes # (Manual) Monocytes # (Manual) Eosinophils # (Manual) PT INR APTT D-Dimer Heparin Anti-Xa Level ABG pH POC ABG pCO2 POC ABG pO2 ABG pO2 ABG HCO3 ABG O2 Saturation ABG Base Excess ABG Hemoglobin ABG Oxyhemoglobin ABG Sodium ABG Potassium ABG Chloride ABG Glucose Oxyhemoglobin Carboxyhemoglobin Sodium Potassium Chloride 95.4 L Carbon Dioxide 35 H BUN 30 H Creatinine 0.5 L Glucose 214 H POC Glucose 181 H 221 H Lactic Acid Calcium Phosphorus Magnesium Ferritin Total Bilirubin Direct Bilirubin AST 54 H ALT 235 H Alkaline Phosphatase Lactate Dehydrogenase C-Reactive Protein Total Protein Albumin 2.9 L Triglycerides Lipase Arterial Blood Glucose Arterial Blood Ionized Calcium Urine WBC (Auto) Coronavirus (PCR) SARS-CoV-2 IgG Ab Crossmatch 06/01/20 06/02/20 06/02/20 23:12 04:00 05:31 WBC RBC Hgb Hct MCV MCH MCHC RDW Lymph % (Auto) [place] % (Auto) Lymph # (Auto) [place] # (Auto) Baso # (Auto) Seg Neutrophils % Seg Neuts % (Manual) Lymphocytes % (Manual) Nucleated RBC % Seg Neutrophils # Seg Neutrophils # Man Lymphocytes # (Manual) Monocytes # (Manual) Eosinophils # (Manual) PT INR APTT D-Dimer Heparin Anti-Xa Level ABG pH 7.465 H POC ABG pCO2 POC ABG pO2 ABG pO2 203.4 H ABG HCO3 41.2 H ABG O2 Saturation 99.3 H ABG Base Excess 15.1 H ABG Hemoglobin 11.5 L ABG Oxyhemoglobin ABG Sodium ABG Potassium ABG Chloride ABG Glucose Oxyhemoglobin Carboxyhemoglobin Sodium Potassium Chloride Carbon Dioxide BUN Creatinine Glucose POC Glucose 197 H 184 H Lactic Acid Calcium Phosphorus Magnesium Ferritin Total Bilirubin Direct Bilirubin AST ALT Alkaline Phosphatase Lactate Dehydrogenase C-Reactive Protein Total Protein Albumin Triglycerides Lipase Arterial Blood Glucose Arterial Blood Ionized Calcium Urine WBC (Auto) Coronavirus (PCR) SARS-CoV-2 IgG Ab Crossmatch 06/02/20 06/02/20 06/02/20 11:49 18:06 23:00 WBC RBC Hgb Hct MCV MCH MCHC RDW Lymph % (Auto) [place] % (Auto) Lymph # (Auto) [place] # (Auto) Baso # (Auto) Seg Neutrophils % Seg Neuts % (Manual) Lymphocytes % (Manual) Nucleated RBC % Seg Neutrophils # Seg Neutrophils # Man Lymphocytes # (Manual) Monocytes # (Manual) Eosinophils # (Manual) PT INR APTT D-Dimer Heparin Anti-Xa Level ABG pH POC ABG pCO2 POC ABG pO2 ABG pO2 ABG HCO3 ABG O2 Saturation ABG Base Excess ABG Hemoglobin ABG Oxyhemoglobin ABG Sodium ABG Potassium ABG Chloride ABG Glucose Oxyhemoglobin Carboxyhemoglobin Sodium Potassium Chloride Carbon Dioxide BUN Creatinine Glucose POC Glucose 195 H 177 H 228 H Lactic Acid Calcium Phosphorus Magnesium Ferritin Total Bilirubin Direct Bilirubin AST ALT Alkaline Phosphatase Lactate Dehydrogenase C-Reactive Protein Total Protein Albumin Triglycerides Lipase Arterial Blood Glucose Arterial Blood Ionized Calcium Urine WBC (Auto) Coronavirus (PCR) SARS-CoV-2 IgG Ab Crossmatch 06/03/20 06/03/20 06/03/20 03:58 05:19 12:21 WBC RBC Hgb Hct MCV MCH MCHC RDW Lymph % (Auto) [place] % (Auto) Lymph # (Auto) [place] # (Auto) Baso # (Auto) Seg Neutrophils % Seg Neuts % (Manual) Lymphocytes % (Manual) Nucleated RBC % Seg Neutrophils # Seg Neutrophils # Man Lymphocytes # (Manual) Monocytes # (Manual) Eosinophils # (Manual) PT INR APTT D-Dimer Heparin Anti-Xa Level ABG pH POC ABG pCO2 POC ABG pO2 ABG pO2 171.0 H ABG HCO3 42.8 H ABG O2 Saturation ABG Base Excess 15.6 H ABG Hemoglobin 12.3 L ABG Oxyhemoglobin ABG Sodium ABG Potassium ABG Chloride ABG Glucose Oxyhemoglobin Carboxyhemoglobin Sodium Potassium Chloride Carbon Dioxide BUN Creatinine Glucose POC Glucose 122 H 207 H Lactic Acid Calcium Phosphorus Magnesium Ferritin Total Bilirubin Direct Bilirubin AST ALT Alkaline Phosphatase Lactate Dehydrogenase C-Reactive Protein Total Protein Albumin Triglycerides Lipase Arterial Blood Glucose Arterial Blood Ionized Calcium Urine WBC (Auto) Coronavirus (PCR) SARS-CoV-2 IgG Ab Crossmatch 06/03/20 06/03/20 06/04/20 17:27 23:50 03:55 WBC RBC Hgb Hct MCV MCH MCHC RDW Lymph % (Auto) [place] % (Auto) Lymph # (Auto) [place] # (Auto) Baso # (Auto) Seg Neutrophils % Seg Neuts % (Manual) Lymphocytes % (Manual) Nucleated RBC % Seg Neutrophils # Seg Neutrophils # Man Lymphocytes # (Manual) Monocytes # (Manual) Eosinophils # (Manual) PT INR APTT D-Dimer Heparin Anti-Xa Level ABG pH POC ABG pCO2 POC ABG pO2 ABG pO2 117.2 H ABG HCO3 42.4 H ABG O2 Saturation ABG Base Excess 15.3 H ABG Hemoglobin 10.5 L ABG Oxyhemoglobin ABG Sodium ABG Potassium ABG Chloride ABG Glucose Oxyhemoglobin Carboxyhemoglobin Sodium Potassium Chloride Carbon Dioxide BUN Creatinine Glucose POC Glucose 157 H 214 H Lactic Acid Calcium Phosphorus Magnesium Ferritin Total Bilirubin Direct Bilirubin AST ALT Alkaline Phosphatase Lactate Dehydrogenase C-Reactive Protein Total Protein Albumin Triglycerides Lipase Arterial Blood Glucose Arterial Blood Ionized Calcium Urine WBC (Auto) Coronavirus (PCR) SARS-CoV-2 IgG Ab Crossmatch 06/04/20 06/04/20 06/04/20 05:49 11:41 17:30 WBC RBC Hgb Hct MCV MCH MCHC RDW Lymph % (Auto) [place] % (Auto) Lymph # (Auto) [place] # (Auto) Baso # (Auto) Seg Neutrophils % Seg Neuts % (Manual) Lymphocytes % (Manual) Nucleated RBC % Seg Neutrophils # Seg Neutrophils # Man Lymphocytes # (Manual) Monocytes # (Manual) Eosinophils # (Manual) PT INR APTT D-Dimer Heparin Anti-Xa Level ABG pH POC ABG pCO2 POC ABG pO2 ABG pO2 ABG HCO3 ABG O2 Saturation ABG Base Excess ABG Hemoglobin ABG Oxyhemoglobin ABG Sodium ABG Potassium ABG Chloride ABG Glucose Oxyhemoglobin Carboxyhemoglobin Sodium Potassium Chloride Carbon Dioxide BUN Creatinine Glucose POC Glucose 149 H 233 H 156 H Lactic Acid Calcium Phosphorus Magnesium Ferritin Total Bilirubin Direct Bilirubin AST ALT Alkaline Phosphatase Lactate Dehydrogenase C-Reactive Protein Total Protein Albumin Triglycerides Lipase Arterial Blood Glucose Arterial Blood Ionized Calcium Urine WBC (Auto) Coronavirus (PCR) SARS-CoV-2 IgG Ab Crossmatch 06/04/20 06/04/20 06/04/20 19:01 20:53 23:41 WBC RBC 3.18 L Hgb 10.8 L Hct 31.8 L MCV 100 H MCH 34 H MCHC RDW Lymph % (Auto) [place] % (Auto) Lymph # (Auto) [place] # (Auto) Baso # (Auto) Seg Neutrophils % Seg Neuts % (Manual) 86.0 H Lymphocytes % (Manual) 10.0 L Nucleated RBC % 1.0 H Seg Neutrophils # Seg Neutrophils # Man 8.5 H Lymphocytes # (Manual) 1.0 L Monocytes # (Manual) Eosinophils # (Manual) PT INR APTT D-Dimer Heparin Anti-Xa Level ABG pH POC ABG pCO2 POC ABG pO2 ABG pO2 ABG HCO3 ABG O2 Saturation ABG Base Excess ABG Hemoglobin ABG Oxyhemoglobin ABG Sodium ABG Potassium ABG Chloride ABG Glucose Oxyhemoglobin Carboxyhemoglobin Sodium Potassium 3.4 L D Chloride 96.5 L Carbon Dioxide 41 H* BUN 27 H Creatinine 0.5 L Glucose 173 H POC Glucose 217 H Lactic Acid Calcium Phosphorus Magnesium Ferritin Total Bilirubin Direct Bilirubin AST ALT Alkaline Phosphatase Lactate Dehydrogenase C-Reactive Protein Total Protein Albumin Triglycerides Lipase Arterial Blood Glucose Arterial Blood Ionized Calcium Urine WBC (Auto) Coronavirus (PCR) SARS-CoV-2 IgG Ab Crossmatch 06/05/20 06/05/20 06/05/20 06:05 11:54 12:35 WBC RBC Hgb Hct MCV MCH MCHC RDW Lymph % (Auto) [place] % (Auto) Lymph # (Auto) [place] # (Auto) Baso # (Auto) Seg Neutrophils % Seg Neuts % (Manual) Lymphocytes % (Manual) Nucleated RBC % Seg Neutrophils # Seg Neutrophils # Man Lymphocytes # (Manual) Monocytes # (Manual) Eosinophils # (Manual) PT INR APTT D-Dimer Heparin Anti-Xa Level ABG pH POC ABG pCO2 POC ABG pO2 ABG pO2 127.9 H ABG HCO3 41.1 H ABG O2 Saturation ABG Base Excess 13.0 H ABG Hemoglobin 13.4 L ABG Oxyhemoglobin ABG Sodium ABG Potassium ABG Chloride ABG Glucose Oxyhemoglobin Carboxyhemoglobin Sodium Potassium Chloride Carbon Dioxide BUN Creatinine Glucose POC Glucose 137 H 211 H Lactic Acid Calcium Phosphorus Magnesium Ferritin Total Bilirubin Direct Bilirubin AST ALT Alkaline Phosphatase Lactate Dehydrogenase C-Reactive Protein Total Protein Albumin Triglycerides Lipase Arterial Blood Glucose Arterial Blood Ionized Calcium Urine WBC (Auto) Coronavirus (PCR) SARS-CoV-2 IgG Ab Crossmatch 06/05/20 06/05/20 06/06/20 17:03 23:49 04:42 WBC RBC Hgb Hct MCV MCH MCHC RDW Lymph % (Auto) [place] % (Auto) Lymph # (Auto) [place] # (Auto) Baso # (Auto) Seg Neutrophils % Seg Neuts % (Manual) Lymphocytes % (Manual) Nucleated RBC % Seg Neutrophils # Seg Neutrophils # Man Lymphocytes # (Manual) Monocytes # (Manual) Eosinophils # (Manual) PT INR APTT D-Dimer Heparin Anti-Xa Level ABG pH POC ABG pCO2 56.1 H POC ABG pO2 52.5 L ABG pO2 ABG HCO3 ABG O2 Saturation ABG Base Excess ABG Hemoglobin 11.7 L ABG Oxyhemoglobin ABG Sodium ABG Potassium 3.3 L ABG Chloride 95.0 L ABG Glucose 156 H Oxyhemoglobin Carboxyhemoglobin Sodium Potassium Chloride Carbon Dioxide BUN Creatinine Glucose POC Glucose 159 H 194 H Lactic Acid Calcium Phosphorus Magnesium Ferritin Total Bilirubin Direct Bilirubin AST ALT Alkaline Phosphatase Lactate Dehydrogenase C-Reactive Protein Total Protein Albumin Triglycerides Lipase Arterial Blood Glucose 156 H Arterial Blood Ionized Calcium Urine WBC (Auto) Coronavirus (PCR) SARS-CoV-2 IgG Ab Crossmatch 06/06/20 06/06/20 06/06/20 05:57 12:06 17:38 WBC RBC Hgb Hct MCV MCH MCHC RDW Lymph % (Auto) [place] % (Auto) Lymph # (Auto) [place] # (Auto) Baso # (Auto) Seg Neutrophils % Seg Neuts % (Manual) Lymphocytes % (Manual) Nucleated RBC % Seg Neutrophils # Seg Neutrophils # Man Lymphocytes # (Manual) Monocytes # (Manual) Eosinophils # (Manual) PT INR APTT D-Dimer Heparin Anti-Xa Level ABG pH POC ABG pCO2 POC ABG pO2 ABG pO2 ABG HCO3 ABG O2 Saturation ABG Base Excess ABG Hemoglobin ABG Oxyhemoglobin ABG Sodium ABG Potassium ABG Chloride ABG Glucose Oxyhemoglobin Carboxyhemoglobin Sodium Potassium Chloride Carbon Dioxide BUN Creatinine Glucose POC Glucose 144 H 230 H 162 H Lactic Acid Calcium Phosphorus Magnesium Ferritin Total Bilirubin Direct Bilirubin AST ALT Alkaline Phosphatase Lactate Dehydrogenase C-Reactive Protein Total Protein Albumin Triglycerides Lipase Arterial Blood Glucose Arterial Blood Ionized Calcium Urine WBC (Auto) Coronavirus (PCR) SARS-CoV-2 IgG Ab Crossmatch 06/06/20 06/07/20 06/07/20 23:50 04:34 06:03 WBC RBC Hgb Hct MCV MCH MCHC RDW Lymph % (Auto) [place] % (Auto) Lymph # (Auto) [place] # (Auto) Baso # (Auto) Seg Neutrophils % Seg Neuts % (Manual) Lymphocytes % (Manual) Nucleated RBC % Seg Neutrophils # Seg Neutrophils # Man Lymphocytes # (Manual) Monocytes # (Manual) Eosinophils # (Manual) PT INR APTT D-Dimer Heparin Anti-Xa Level ABG pH 7.511 H POC ABG pCO2 53.5 H POC ABG pO2 114.5 H ABG pO2 ABG HCO3 ABG O2 Saturation ABG Base Excess ABG Hemoglobin 9.4 L ABG Oxyhemoglobin ABG Sodium 134.5 L ABG Potassium ABG Chloride 94.0 L ABG Glucose 186 H Oxyhemoglobin Carboxyhemoglobin Sodium Potassium Chloride Carbon Dioxide BUN Creatinine Glucose POC Glucose 181 H 155 H Lactic Acid Calcium Phosphorus Magnesium Ferritin Total Bilirubin Direct Bilirubin AST ALT Alkaline Phosphatase Lactate Dehydrogenase C-Reactive Protein Total Protein Albumin Triglycerides Lipase Arterial Blood Glucose 186 H Arterial Blood Ionized Calcium 4.5 L Urine WBC (Auto) Coronavirus (PCR) SARS-CoV-2 IgG Ab Crossmatch 06/07/20 06/07/20 06/07/20 13:41 14:58 14:58 WBC RBC 2.72 L Hgb 9.3 L Hct 27.2 L MCV 100 H MCH 34 H MCHC RDW Lymph % (Auto) [place] % (Auto) Lymph # (Auto) [place] # (Auto) Baso # (Auto) Seg Neutrophils % Seg Neuts % (Manual) Lymphocytes % (Manual) Nucleated RBC % Seg Neutrophils # Seg Neutrophils # Man Lymphocytes # (Manual) Monocytes # (Manual) Eosinophils # (Manual) PT INR APTT D-Dimer Heparin Anti-Xa Level ABG pH POC ABG pCO2 POC ABG pO2 ABG pO2 ABG HCO3 ABG O2 Saturation ABG Base Excess ABG Hemoglobin ABG Oxyhemoglobin ABG Sodium ABG Potassium ABG Chloride ABG Glucose Oxyhemoglobin Carboxyhemoglobin Sodium Potassium Chloride 93.5 L Carbon Dioxide 39 H BUN 22 H Creatinine 0.4 L Glucose 188 H POC Glucose 201 H Lactic Acid Calcium Phosphorus Magnesium Ferritin Total Bilirubin Direct Bilirubin AST 61 H ALT 273 H Alkaline Phosphatase Lactate Dehydrogenase C-Reactive Protein Total Protein 5.9 L Albumin 2.7 L Triglycerides Lipase Arterial Blood Glucose Arterial Blood Ionized Calcium Urine WBC (Auto) Coronavirus (PCR) SARS-CoV-2 IgG Ab Crossmatch 06/07/20 06/08/20 06/08/20 23:18 05:31 12:07 WBC RBC Hgb Hct MCV MCH MCHC RDW Lymph % (Auto) [place] % (Auto) Lymph # (Auto) [place] # (Auto) Baso # (Auto) Seg Neutrophils % Seg Neuts % (Manual) Lymphocytes % (Manual) Nucleated RBC % Seg Neutrophils # Seg Neutrophils # Man Lymphocytes # (Manual) Monocytes # (Manual) Eosinophils # (Manual) PT INR APTT D-Dimer Heparin Anti-Xa Level ABG pH POC ABG pCO2 POC ABG pO2 ABG pO2 ABG HCO3 ABG O2 Saturation ABG Base Excess ABG Hemoglobin ABG Oxyhemoglobin ABG Sodium ABG Potassium ABG Chloride ABG Glucose Oxyhemoglobin Carboxyhemoglobin Sodium Potassium Chloride Carbon Dioxide BUN Creatinine Glucose POC Glucose 214 H 129 H 179 H Lactic Acid Calcium Phosphorus Magnesium Ferritin Total Bilirubin Direct Bilirubin AST ALT Alkaline Phosphatase Lactate Dehydrogenase C-Reactive Protein Total Protein Albumin Triglycerides Lipase Arterial Blood Glucose Arterial Blood Ionized Calcium Urine WBC (Auto) Coronavirus (PCR) SARS-CoV-2 IgG Ab Crossmatch 06/08/20 06/08/20 06/09/20 18:18 23:35 05:42 WBC RBC Hgb Hct MCV MCH MCHC RDW Lymph % (Auto) [place] % (Auto) Lymph # (Auto) [place] # (Auto) Baso # (Auto) Seg Neutrophils % Seg Neuts % (Manual) Lymphocytes % (Manual) Nucleated RBC % Seg Neutrophils # Seg Neutrophils # Man Lymphocytes # (Manual) Monocytes # (Manual) Eosinophils # (Manual) PT INR APTT D-Dimer Heparin Anti-Xa Level ABG pH POC ABG pCO2 POC ABG pO2 ABG pO2 ABG HCO3 ABG O2 Saturation ABG Base Excess ABG Hemoglobin ABG Oxyhemoglobin ABG Sodium ABG Potassium ABG Chloride ABG Glucose Oxyhemoglobin Carboxyhemoglobin Sodium Potassium Chloride Carbon Dioxide BUN Creatinine Glucose POC Glucose 172 H 177 H 137 H Lactic Acid Calcium Phosphorus Magnesium Ferritin Total Bilirubin Direct Bilirubin AST ALT Alkaline Phosphatase Lactate Dehydrogenase C-Reactive Protein Total Protein Albumin Triglycerides Lipase Arterial Blood Glucose Arterial Blood Ionized Calcium Urine WBC (Auto) Coronavirus (PCR) SARS-CoV-2 IgG Ab Crossmatch 06/09/20 06/09/20 06/09/20 06:20 07:55 07:55 WBC 12.4 H RBC 3.26 L Hgb 11.1 L Hct 33.4 L D MCV 102 H MCH 34 H MCHC RDW Lymph % (Auto) [place] % (Auto) Lymph # (Auto) [place] # (Auto) Baso # (Auto) Seg Neutrophils % Seg Neuts % (Manual) Lymphocytes % (Manual) Nucleated RBC % Seg Neutrophils # Seg Neutrophils # Man Lymphocytes # (Manual) Monocytes # (Manual) Eosinophils # (Manual) PT INR APTT D-Dimer Heparin Anti-Xa Level ABG pH 7.466 H POC ABG pCO2 50.7 H POC ABG pO2 53.0 L ABG pO2 ABG HCO3 ABG O2 Saturation ABG Base Excess ABG Hemoglobin ABG Oxyhemoglobin ABG Sodium ABG Potassium 2.9 L ABG Chloride 93.0 L ABG Glucose 138 H Oxyhemoglobin Carboxyhemoglobin Sodium Potassium 3.0 L Chloride 92.3 L Carbon Dioxide 37 H BUN 21 H Creatinine 0.6 L Glucose 120 H POC Glucose Lactic Acid Calcium Phosphorus Magnesium Ferritin Total Bilirubin Direct Bilirubin AST ALT Alkaline Phosphatase Lactate Dehydrogenase C-Reactive Protein Total Protein Albumin Triglycerides Lipase Arterial Blood Glucose 138 H Arterial Blood Ionized Calcium 4.5 L Urine WBC (Auto) Coronavirus (PCR) SARS-CoV-2 IgG Ab Crossmatch 06/09/20 06/09/20 06/10/20 11:22 18:32 04:46 WBC RBC Hgb Hct MCV MCH MCHC RDW Lymph % (Auto) [place] % (Auto) Lymph # (Auto) [place] # (Auto) Baso # (Auto) Seg Neutrophils % Seg Neuts % (Manual) Lymphocytes % (Manual) Nucleated RBC % Seg Neutrophils # Seg Neutrophils # Man Lymphocytes # (Manual) Monocytes # (Manual) Eosinophils # (Manual) PT INR APTT D-Dimer Heparin Anti-Xa Level ABG pH 7.501 H POC ABG pCO2 POC ABG pO2 126.5 H ABG pO2 ABG HCO3 ABG O2 Saturation ABG Base Excess ABG Hemoglobin 10.3 L ABG Oxyhemoglobin ABG Sodium ABG Potassium ABG Chloride ABG Glucose 220 H Oxyhemoglobin Carboxyhemoglobin Sodium Potassium Chloride Carbon Dioxide BUN Creatinine Glucose POC Glucose 117 H 121 H Lactic Acid Calcium Phosphorus Magnesium Ferritin Total Bilirubin Direct Bilirubin AST ALT Alkaline Phosphatase Lactate Dehydrogenase C-Reactive Protein Total Protein Albumin Triglycerides Lipase Arterial Blood Glucose 220 H Arterial Blood Ionized Calcium Urine WBC (Auto) Coronavirus (PCR) SARS-CoV-2 IgG Ab Crossmatch 06/10/20 06/10/20 06/10/20 05:30 09:38 12:03 WBC RBC Hgb Hct MCV MCH MCHC RDW Lymph % (Auto) [place] % (Auto) Lymph # (Auto) [place] # (Auto) Baso # (Auto) Seg Neutrophils % Seg Neuts % (Manual) Lymphocytes % (Manual) Nucleated RBC % Seg Neutrophils # Seg Neutrophils # Man Lymphocytes # (Manual) Monocytes # (Manual) Eosinophils # (Manual) PT INR APTT D-Dimer Heparin Anti-Xa Level ABG pH POC ABG pCO2 POC ABG pO2 ABG pO2 ABG HCO3 ABG O2 Saturation ABG Base Excess ABG Hemoglobin ABG Oxyhemoglobin ABG Sodium ABG Potassium ABG Chloride ABG Glucose Oxyhemoglobin Carboxyhemoglobin Sodium Potassium Chloride Carbon Dioxide BUN Creatinine Glucose POC Glucose 181 H 204 H Lactic Acid Calcium Phosphorus Magnesium Ferritin Total Bilirubin Direct Bilirubin AST ALT Alkaline Phosphatase Lactate Dehydrogenase C-Reactive Protein Total Protein Albumin Triglycerides 738 H Lipase Arterial Blood Glucose Arterial Blood Ionized Calcium Urine WBC (Auto) Coronavirus (PCR) SARS-CoV-2 IgG Ab Crossmatch 06/10/20 06/11/20 06/11/20 17:17 00:04 04:38 WBC RBC Hgb Hct MCV MCH MCHC RDW Lymph % (Auto) [place] % (Auto) Lymph # (Auto) [place] # (Auto) Baso # (Auto) Seg Neutrophils % Seg Neuts % (Manual) Lymphocytes % (Manual) Nucleated RBC % Seg Neutrophils # Seg Neutrophils # Man Lymphocytes # (Manual) Monocytes # (Manual) Eosinophils # (Manual) PT INR APTT D-Dimer Heparin Anti-Xa Level ABG pH 7.479 H POC ABG pCO2 POC ABG pO2 76.7 L ABG pO2 ABG HCO3 ABG O2 Saturation ABG Base Excess ABG Hemoglobin 9.8 L ABG Oxyhemoglobin ABG Sodium 135.8 L ABG Potassium ABG Chloride ABG Glucose 238 H Oxyhemoglobin Carboxyhemoglobin Sodium Potassium Chloride Carbon Dioxide BUN Creatinine Glucose POC Glucose 156 H 178 H Lactic Acid Calcium Phosphorus Magnesium Ferritin Total Bilirubin Direct Bilirubin AST ALT Alkaline Phosphatase Lactate Dehydrogenase C-Reactive Protein Total Protein Albumin Triglycerides Lipase Arterial Blood Glucose 238 H Arterial Blood Ionized Calcium Urine WBC (Auto) Coronavirus (PCR) SARS-CoV-2 IgG Ab Crossmatch 06/11/20 06/11/20 06/11/20 05:21 06:52 11:50 WBC RBC Hgb Hct MCV MCH MCHC RDW Lymph % (Auto) [place] % (Auto) Lymph # (Auto) [place] # (Auto) Baso # (Auto) Seg Neutrophils % Seg Neuts % (Manual) Lymphocytes % (Manual) Nucleated RBC % Seg Neutrophils # Seg Neutrophils # Man Lymphocytes # (Manual) Monocytes # (Manual) Eosinophils # (Manual) PT INR APTT D-Dimer Heparin Anti-Xa Level ABG pH POC ABG pCO2 POC ABG pO2 ABG pO2 ABG HCO3 ABG O2 Saturation ABG Base Excess ABG Hemoglobin ABG Oxyhemoglobin ABG Sodium ABG Potassium ABG Chloride ABG Glucose Oxyhemoglobin Carboxyhemoglobin Sodium Potassium Chloride Carbon Dioxide BUN Creatinine Glucose POC Glucose 215 H 187 H Lactic Acid Calcium Phosphorus Magnesium Ferritin Total Bilirubin Direct Bilirubin AST ALT Alkaline Phosphatase Lactate Dehydrogenase C-Reactive Protein Total Protein Albumin Triglycerides 331 H Lipase Arterial Blood Glucose Arterial Blood Ionized Calcium Urine WBC (Auto) Coronavirus (PCR) SARS-CoV-2 IgG Ab Crossmatch 06/11/20 06/11/20 06/12/20 17:49 23:35 04:52 WBC RBC Hgb Hct MCV MCH MCHC RDW Lymph % (Auto) [place] % (Auto) Lymph # (Auto) [place] # (Auto) Baso # (Auto) Seg Neutrophils % Seg Neuts % (Manual) Lymphocytes % (Manual) Nucleated RBC % Seg Neutrophils # Seg Neutrophils # Man Lymphocytes # (Manual) Monocytes # (Manual) Eosinophils # (Manual) PT INR APTT D-Dimer Heparin Anti-Xa Level ABG pH 7.486 H POC ABG pCO2 POC ABG pO2 ABG pO2 ABG HCO3 ABG O2 Saturation ABG Base Excess ABG Hemoglobin 9.4 L ABG Oxyhemoglobin ABG Sodium ABG Potassium 3.2 L ABG Chloride ABG Glucose 209 H Oxyhemoglobin Carboxyhemoglobin Sodium Potassium Chloride Carbon Dioxide BUN Creatinine Glucose POC Glucose 211 H 200 H Lactic Acid Calcium Phosphorus Magnesium Ferritin Total Bilirubin Direct Bilirubin AST ALT Alkaline Phosphatase Lactate Dehydrogenase C-Reactive Protein Total Protein Albumin Triglycerides Lipase Arterial Blood Glucose 209 H Arterial Blood Ionized Calcium Urine WBC (Auto) Coronavirus (PCR) SARS-CoV-2 IgG Ab Crossmatch 06/12/20 06/12/20 06/12/20 05:13 11:47 18:33 WBC RBC Hgb Hct MCV MCH MCHC RDW Lymph % (Auto) [place] % (Auto) Lymph # (Auto) [place] # (Auto) Baso # (Auto) Seg Neutrophils % Seg Neuts % (Manual) Lymphocytes % (Manual) Nucleated RBC % Seg Neutrophils # Seg Neutrophils # Man Lymphocytes # (Manual) Monocytes # (Manual) Eosinophils # (Manual) PT INR APTT D-Dimer Heparin Anti-Xa Level ABG pH POC ABG pCO2 POC ABG pO2 ABG pO2 ABG HCO3 ABG O2 Saturation ABG Base Excess ABG Hemoglobin ABG Oxyhemoglobin ABG Sodium ABG Potassium ABG Chloride ABG Glucose Oxyhemoglobin Carboxyhemoglobin Sodium Potassium Chloride Carbon Dioxide BUN Creatinine Glucose POC Glucose 174 H 214 H 194 H Lactic Acid Calcium Phosphorus Magnesium Ferritin Total Bilirubin Direct Bilirubin AST ALT Alkaline Phosphatase Lactate Dehydrogenase C-Reactive Protein Total Protein Albumin Triglycerides Lipase Arterial Blood Glucose Arterial Blood Ionized Calcium Urine WBC (Auto) Coronavirus (PCR) SARS-CoV-2 IgG Ab Crossmatch 06/12/20 06/13/20 06/13/20 23:49 05:41 12:30 WBC RBC Hgb Hct MCV MCH MCHC RDW Lymph % (Auto) [place] % (Auto) Lymph # (Auto) [place] # (Auto) Baso # (Auto) Seg Neutrophils % Seg Neuts % (Manual) Lymphocytes % (Manual) Nucleated RBC % Seg Neutrophils # Seg Neutrophils # Man Lymphocytes # (Manual) Monocytes # (Manual) Eosinophils # (Manual) PT INR APTT D-Dimer Heparin Anti-Xa Level ABG pH POC ABG pCO2 POC ABG pO2 ABG pO2 ABG HCO3 ABG O2 Saturation ABG Base Excess ABG Hemoglobin ABG Oxyhemoglobin ABG Sodium ABG Potassium ABG Chloride ABG Glucose Oxyhemoglobin Carboxyhemoglobin Sodium Potassium Chloride Carbon Dioxide BUN Creatinine Glucose POC Glucose 160 H 150 H 181 H Lactic Acid Calcium Phosphorus Magnesium Ferritin Total Bilirubin Direct Bilirubin AST ALT Alkaline Phosphatase Lactate Dehydrogenase C-Reactive Protein Total Protein Albumin Triglycerides Lipase Arterial Blood Glucose Arterial Blood Ionized Calcium Urine WBC (Auto) Coronavirus (PCR) SARS-CoV-2 IgG Ab Crossmatch 06/13/20 06/13/20 06/13/20 14:14 17:48 23:27 WBC 12.8 H RBC 2.33 L Hgb 8.0 L Hct 23.3 L MCV 100 H MCH 34 H MCHC RDW 15.7 H Lymph % (Auto) [place] % (Auto) Lymph # (Auto) [place] # (Auto) Baso # (Auto) Seg Neutrophils % Seg Neuts % (Manual) 85.0 H Lymphocytes % (Manual) 10.0 L Nucleated RBC % Seg Neutrophils # Seg Neutrophils # Man 10.9 H Lymphocytes # (Manual) Monocytes # (Manual) Eosinophils # (Manual) PT INR APTT D-Dimer Heparin Anti-Xa Level ABG pH POC ABG pCO2 POC ABG pO2 ABG pO2 ABG HCO3 ABG O2 Saturation ABG Base Excess ABG Hemoglobin ABG Oxyhemoglobin ABG Sodium ABG Potassium ABG Chloride ABG Glucose Oxyhemoglobin Carboxyhemoglobin Sodium Potassium Chloride Carbon Dioxide BUN Creatinine Glucose POC Glucose 173 H 154 H Lactic Acid Calcium Phosphorus Magnesium Ferritin Total Bilirubin Direct Bilirubin AST ALT Alkaline Phosphatase Lactate Dehydrogenase C-Reactive Protein Total Protein Albumin Triglycerides Lipase Arterial Blood Glucose Arterial Blood Ionized Calcium Urine WBC (Auto) Coronavirus (PCR) SARS-CoV-2 IgG Ab Crossmatch 06/14/20 06/14/20 06/14/20 03:58 05:21 07:15 WBC 26.2 H RBC 2.97 L Hgb 9.7 L Hct 29.9 L D MCV 101 H MCH 33 H MCHC RDW 15.3 H Lymph % (Auto) [place] % (Auto) Lymph # (Auto) [place] # (Auto) Baso # (Auto) Seg Neutrophils % Seg Neuts % (Manual) 79.0 H Lymphocytes % (Manual) 5.0 L Nucleated RBC % 3.0 H Seg Neutrophils # Seg Neutrophils # Man 20.7 H Lymphocytes # (Manual) Monocytes # (Manual) 1.3 H Eosinophils # (Manual) PT INR APTT D-Dimer Heparin Anti-Xa Level ABG pH POC ABG pCO2 51.5 H POC ABG pO2 70.0 L ABG pO2 ABG HCO3 ABG O2 Saturation ABG Base Excess ABG Hemoglobin 10.1 L ABG Oxyhemoglobin ABG Sodium 131.5 L ABG Potassium 3.1 L ABG Chloride 93.0 L ABG Glucose 188 H Oxyhemoglobin Carboxyhemoglobin Sodium Potassium Chloride Carbon Dioxide BUN Creatinine Glucose POC Glucose 147 H Lactic Acid Calcium Phosphorus Magnesium Ferritin Total Bilirubin Direct Bilirubin AST ALT Alkaline Phosphatase Lactate Dehydrogenase C-Reactive Protein Total Protein Albumin Triglycerides Lipase Arterial Blood Glucose 188 H Arterial Blood Ionized Calcium Urine WBC (Auto) Coronavirus (PCR) SARS-CoV-2 IgG Ab Crossmatch 06/14/20 06/14/20 06/14/20 07:15 11:30 11:50 WBC RBC Hgb Hct MCV MCH MCHC RDW Lymph % (Auto) [place] % (Auto) Lymph # (Auto) [place] # (Auto) Baso # (Auto) Seg Neutrophils % Seg Neuts % (Manual) Lymphocytes % (Manual) Nucleated RBC % Seg Neutrophils # Seg Neutrophils # Man Lymphocytes # (Manual) Monocytes # (Manual) Eosinophils # (Manual) PT INR APTT D-Dimer Heparin Anti-Xa Level ABG pH POC ABG pCO2 POC ABG pO2 ABG pO2 ABG HCO3 ABG O2 Saturation ABG Base Excess ABG Hemoglobin ABG Oxyhemoglobin ABG Sodium ABG Potassium ABG Chloride ABG Glucose Oxyhemoglobin Carboxyhemoglobin Sodium 135 L Potassium 3.5 L Chloride 90.4 L Carbon Dioxide 38 H BUN Creatinine 0.5 L Glucose 190 H POC Glucose 176 H Lactic Acid Calcium Phosphorus Magnesium Ferritin 1496.0 H Total Bilirubin Direct Bilirubin AST ALT 81 H Alkaline Phosphatase Lactate Dehydrogenase C-Reactive Protein Total Protein Albumin 2.9 L Triglycerides Lipase Arterial Blood Glucose Arterial Blood Ionized Calcium Urine WBC (Auto) Coronavirus (PCR) SARS-CoV-2 IgG Ab Crossmatch 06/14/20 06/15/20 06/15/20 23:31 04:00 05:00 WBC RBC Hgb Hct MCV MCH MCHC RDW Lymph % (Auto) [place] % (Auto) Lymph # (Auto) [place] # (Auto) Baso # (Auto) Seg Neutrophils % Seg Neuts % (Manual) Lymphocytes % (Manual) Nucleated RBC % Seg Neutrophils # Seg Neutrophils # Man Lymphocytes # (Manual) Monocytes # (Manual) Eosinophils # (Manual) PT INR APTT D-Dimer Heparin Anti-Xa Level ABG pH POC ABG pCO2 POC ABG pO2 ABG pO2 ABG HCO3 ABG O2 Saturation ABG Base Excess ABG Hemoglobin ABG Oxyhemoglobin ABG Sodium ABG Potassium ABG Chloride ABG Glucose Oxyhemoglobin Carboxyhemoglobin Sodium 133 L Potassium Chloride 91.1 L Carbon Dioxide 34 H BUN Creatinine 0.4 L Glucose 159 H POC Glucose 200 H Lactic Acid Calcium Phosphorus Magnesium Ferritin Total Bilirubin 2.00 H Direct Bilirubin AST 47 H ALT 77 H Alkaline Phosphatase Lactate Dehydrogenase C-Reactive Protein Total Protein Albumin 2.6 L Triglycerides 152 H Lipase Arterial Blood Glucose Arterial Blood Ionized Calcium Urine WBC (Auto) Coronavirus (PCR) SARS-CoV-2 IgG Ab Crossmatch 06/15/20 06/15/20 06/15/20 05:35 06:27 11:38 WBC RBC Hgb Hct MCV MCH MCHC RDW Lymph % (Auto) [place] % (Auto) Lymph # (Auto) [place] # (Auto) Baso # (Auto) Seg Neutrophils % Seg Neuts % (Manual) Lymphocytes % (Manual) Nucleated RBC % Seg Neutrophils # Seg Neutrophils # Man Lymphocytes # (Manual) Monocytes # (Manual) Eosinophils # (Manual) PT INR APTT D-Dimer Heparin Anti-Xa Level ABG pH POC ABG pCO2 61.0 H POC ABG pO2 67.9 L ABG pO2 ABG HCO3 ABG O2 Saturation ABG Base Excess ABG Hemoglobin 10.4 L ABG Oxyhemoglobin ABG Sodium 132.7 L ABG Potassium 3.3 L ABG Chloride 92.0 L ABG Glucose 158 H Oxyhemoglobin Carboxyhemoglobin Sodium Potassium Chloride Carbon Dioxide BUN Creatinine Glucose POC Glucose 148 H 197 H Lactic Acid Calcium Phosphorus Magnesium Ferritin Total Bilirubin Direct Bilirubin AST ALT Alkaline Phosphatase Lactate Dehydrogenase C-Reactive Protein Total Protein Albumin Triglycerides Lipase Arterial Blood Glucose 158 H Arterial Blood Ionized Calcium Urine WBC (Auto) Coronavirus (PCR) SARS-CoV-2 IgG Ab Crossmatch 06/15/20 06/15/20 06/16/20 17:29 Unknown 00:01 WBC 20.7 H RBC 2.57 L Hgb 8.9 L Hct 25.8 L MCV 101 H MCH 35 H MCHC 35 H RDW 16.0 H Lymph % (Auto) [place] % (Auto) Lymph # (Auto) [place] # (Auto) Baso # (Auto) Seg Neutrophils % Seg Neuts % (Manual) 83.0 H Lymphocytes % (Manual) 8.0 L Nucleated RBC % Seg Neutrophils # Seg Neutrophils # Man 17.2 H Lymphocytes # (Manual) Monocytes # (Manual) 1.2 H Eosinophils # (Manual) PT INR APTT D-Dimer Heparin Anti-Xa Level ABG pH POC ABG pCO2 POC ABG pO2 ABG pO2 ABG HCO3 ABG O2 Saturation ABG Base Excess ABG Hemoglobin ABG Oxyhemoglobin ABG Sodium ABG Potassium ABG Chloride ABG Glucose Oxyhemoglobin Carboxyhemoglobin Sodium Potassium Chloride Carbon Dioxide BUN Creatinine Glucose POC Glucose 231 H 257 H Lactic Acid Calcium Phosphorus Magnesium Ferritin Total Bilirubin Direct Bilirubin AST ALT Alkaline Phosphatase Lactate Dehydrogenase C-Reactive Protein Total Protein Albumin Triglycerides Lipase Arterial Blood Glucose Arterial Blood Ionized Calcium Urine WBC (Auto) Coronavirus (PCR) SARS-CoV-2 IgG Ab Crossmatch 06/16/20 06/16/20 06/16/20 04:00 04:00 05:22 WBC 13.8 H RBC 2.03 L Hgb 7.6 L Hct 20.7 L MCV 102 H MCH 37 H MCHC 37 H RDW 16.2 H Lymph % (Auto) 4.4 L [place] % (Auto) Lymph # (Auto) 0.6 L [place] # (Auto) Baso # (Auto) Seg Neutrophils % Seg Neuts % (Manual) Lymphocytes % (Manual) Nucleated RBC % Seg Neutrophils # 12.7 H Seg Neutrophils # Man Lymphocytes # (Manual) Monocytes # (Manual) Eosinophils # (Manual) PT INR APTT D-Dimer Heparin Anti-Xa Level ABG pH POC ABG pCO2 POC ABG pO2 ABG pO2 ABG HCO3 ABG O2 Saturation ABG Base Excess ABG Hemoglobin ABG Oxyhemoglobin ABG Sodium ABG Potassium ABG Chloride ABG Glucose Oxyhemoglobin Carboxyhemoglobin Sodium 130 L Potassium Chloride 88.9 L Carbon Dioxide 36 H BUN Creatinine 0.3 L Glucose 276 H POC Glucose 250 H Lactic Acid Calcium Phosphorus Magnesium Ferritin Total Bilirubin Direct Bilirubin AST ALT Alkaline Phosphatase Lactate Dehydrogenase C-Reactive Protein Total Protein Albumin Triglycerides Lipase Arterial Blood Glucose Arterial Blood Ionized Calcium Urine WBC (Auto) Coronavirus (PCR) SARS-CoV-2 IgG Ab Crossmatch 06/16/20 06/16/20 06/17/20 12:44 18:18 00:39 WBC RBC Hgb Hct MCV MCH MCHC RDW Lymph % (Auto) [place] % (Auto) Lymph # (Auto) [place] # (Auto) Baso # (Auto) Seg Neutrophils % Seg Neuts % (Manual) Lymphocytes % (Manual) Nucleated RBC % Seg Neutrophils # Seg Neutrophils # Man Lymphocytes # (Manual) Monocytes # (Manual) Eosinophils # (Manual) PT INR APTT D-Dimer Heparin Anti-Xa Level ABG pH POC ABG pCO2 POC ABG pO2 ABG pO2 ABG HCO3 ABG O2 Saturation ABG Base Excess ABG Hemoglobin ABG Oxyhemoglobin ABG Sodium ABG Potassium ABG Chloride ABG Glucose Oxyhemoglobin Carboxyhemoglobin Sodium Potassium Chloride Carbon Dioxide BUN Creatinine Glucose POC Glucose 279 H 239 H 247 H Lactic Acid Calcium Phosphorus Magnesium Ferritin Total Bilirubin Direct Bilirubin AST ALT Alkaline Phosphatase Lactate Dehydrogenase C-Reactive Protein Total Protein Albumin Triglycerides Lipase Arterial Blood Glucose Arterial Blood Ionized Calcium Urine WBC (Auto) Coronavirus (PCR) SARS-CoV-2 IgG Ab Crossmatch 06/17/20 06/17/20 06/17/20 03:40 04:08 10:54 WBC RBC Hgb Hct MCV MCH MCHC RDW Lymph % (Auto) [place] % (Auto) Lymph # (Auto) [place] # (Auto) Baso # (Auto) Seg Neutrophils % Seg Neuts % (Manual) Lymphocytes % (Manual) Nucleated RBC % Seg Neutrophils # Seg Neutrophils # Man Lymphocytes # (Manual) Monocytes # (Manual) Eosinophils # (Manual) PT INR APTT D-Dimer Heparin Anti-Xa Level ABG pH POC ABG pCO2 65.7 H POC ABG pO2 ABG pO2 ABG HCO3 ABG O2 Saturation ABG Base Excess ABG Hemoglobin 11.9 L ABG Oxyhemoglobin ABG Sodium ABG Potassium ABG Chloride 93.0 L ABG Glucose 244 H Oxyhemoglobin Carboxyhemoglobin Sodium Potassium Chloride Carbon Dioxide BUN Creatinine Glucose POC Glucose 221 H 248 H Lactic Acid Calcium Phosphorus Magnesium Ferritin Total Bilirubin Direct Bilirubin AST ALT Alkaline Phosphatase Lactate Dehydrogenase C-Reactive Protein Total Protein Albumin Triglycerides Lipase Arterial Blood Glucose 244 H Arterial Blood Ionized Calcium Urine WBC (Auto) Coronavirus (PCR) SARS-CoV-2 IgG Ab Crossmatch 06/17/20 06/17/20 06/17/20 17:47 23:11 23:29 WBC RBC Hgb Hct MCV MCH MCHC RDW Lymph % (Auto) [place] % (Auto) Lymph # (Auto) [place] # (Auto) Baso # (Auto) Seg Neutrophils % Seg Neuts % (Manual) Lymphocytes % (Manual) Nucleated RBC % Seg Neutrophils # Seg Neutrophils # Man Lymphocytes # (Manual) Monocytes # (Manual) Eosinophils # (Manual) PT INR APTT D-Dimer Heparin Anti-Xa Level ABG pH POC ABG pCO2 85.2 H POC ABG pO2 48.4 L ABG pO2 ABG HCO3 ABG O2 Saturation ABG Base Excess ABG Hemoglobin 8.0 L ABG Oxyhemoglobin ABG Sodium ABG Potassium ABG Chloride 95.0 L ABG Glucose 292 H Oxyhemoglobin Carboxyhemoglobin Sodium Potassium Chloride Carbon Dioxide BUN Creatinine Glucose POC Glucose 245 H 252 H Lactic Acid Calcium Phosphorus Magnesium Ferritin Total Bilirubin Direct Bilirubin AST ALT Alkaline Phosphatase Lactate Dehydrogenase C-Reactive Protein Total Protein Albumin Triglycerides Lipase Arterial Blood Glucose 292 H Arterial Blood Ionized Calcium Urine WBC (Auto) Coronavirus (PCR) SARS-CoV-2 IgG Ab Crossmatch 06/18/20 06/18/20 06/18/20 03:14 05:34 11:47 WBC RBC Hgb Hct MCV MCH MCHC RDW Lymph % (Auto) [place] % (Auto) Lymph # (Auto) [place] # (Auto) Baso # (Auto) Seg Neutrophils % Seg Neuts % (Manual) Lymphocytes % (Manual) Nucleated RBC % Seg Neutrophils # Seg Neutrophils # Man Lymphocytes # (Manual) Monocytes # (Manual) Eosinophils # (Manual) PT INR APTT D-Dimer Heparin Anti-Xa Level ABG pH POC ABG pCO2 65.4 H POC ABG pO2 160.7 H ABG pO2 ABG HCO3 ABG O2 Saturation ABG Base Excess ABG Hemoglobin 7.8 L ABG Oxyhemoglobin ABG Sodium ABG Potassium ABG Chloride 95.0 L ABG Glucose 251 H Oxyhemoglobin Carboxyhemoglobin Sodium Potassium Chloride Carbon Dioxide BUN Creatinine Glucose POC Glucose 243 H 263 H Lactic Acid Calcium Phosphorus Magnesium Ferritin Total Bilirubin Direct Bilirubin AST ALT Alkaline Phosphatase Lactate Dehydrogenase C-Reactive Protein Total Protein Albumin Triglycerides Lipase Arterial Blood Glucose 251 H Arterial Blood Ionized Calcium Urine WBC (Auto) Coronavirus (PCR) SARS-CoV-2 IgG Ab Crossmatch 06/18/20 06/18/20 06/19/20 17:31 23:33 04:32 WBC RBC Hgb Hct MCV MCH MCHC RDW Lymph % (Auto) [place] % (Auto) Lymph # (Auto) [place] # (Auto) Baso # (Auto) Seg Neutrophils % Seg Neuts % (Manual) Lymphocytes % (Manual) Nucleated RBC % Seg Neutrophils # Seg Neutrophils # Man Lymphocytes # (Manual) Monocytes # (Manual) Eosinophils # (Manual) PT INR APTT D-Dimer Heparin Anti-Xa Level ABG pH POC ABG pCO2 83.1 H POC ABG pO2 65.8 L ABG pO2 ABG HCO3 ABG O2 Saturation ABG Base Excess ABG Hemoglobin 8.9 L ABG Oxyhemoglobin ABG Sodium ABG Potassium ABG Chloride 96.0 L ABG Glucose 297 H Oxyhemoglobin Carboxyhemoglobin Sodium Potassium Chloride Carbon Dioxide BUN Creatinine Glucose POC Glucose 286 H 238 H Lactic Acid Calcium Phosphorus Magnesium Ferritin Total Bilirubin Direct Bilirubin AST ALT Alkaline Phosphatase Lactate Dehydrogenase C-Reactive Protein Total Protein Albumin Triglycerides Lipase Arterial Blood Glucose 297 H Arterial Blood Ionized Calcium Urine WBC (Auto) Coronavirus (PCR) SARS-CoV-2 IgG Ab Crossmatch 06/19/20 06/19/20 06/19/20 05:55 11:20 17:12 WBC RBC Hgb Hct MCV MCH MCHC RDW Lymph % (Auto) [place] % (Auto) Lymph # (Auto) [place] # (Auto) Baso # (Auto) Seg Neutrophils % Seg Neuts % (Manual) Lymphocytes % (Manual) Nucleated RBC % Seg Neutrophils # Seg Neutrophils # Man Lymphocytes # (Manual) Monocytes # (Manual) Eosinophils # (Manual) PT INR APTT D-Dimer Heparin Anti-Xa Level ABG pH POC ABG pCO2 POC ABG pO2 ABG pO2 ABG HCO3 ABG O2 Saturation ABG Base Excess ABG Hemoglobin ABG Oxyhemoglobin ABG Sodium ABG Potassium ABG Chloride ABG Glucose Oxyhemoglobin Carboxyhemoglobin Sodium Potassium Chloride Carbon Dioxide BUN Creatinine Glucose POC Glucose 274 H 282 H 298 H Lactic Acid Calcium Phosphorus Magnesium Ferritin Total Bilirubin Direct Bilirubin AST ALT Alkaline Phosphatase Lactate Dehydrogenase C-Reactive Protein Total Protein Albumin Triglycerides Lipase Arterial Blood Glucose Arterial Blood Ionized Calcium Urine WBC (Auto) Coronavirus (PCR) SARS-CoV-2 IgG Ab Crossmatch 06/19/20 06/20/20 06/20/20 23:08 03:33 06:01 WBC RBC Hgb Hct MCV MCH MCHC RDW Lymph % (Auto) [place] % (Auto) Lymph # (Auto) [place] # (Auto) Baso # (Auto) Seg Neutrophils % Seg Neuts % (Manual) Lymphocytes % (Manual) Nucleated RBC % Seg Neutrophils # Seg Neutrophils # Man Lymphocytes # (Manual) Monocytes # (Manual) Eosinophils # (Manual) PT INR APTT D-Dimer Heparin Anti-Xa Level ABG pH POC ABG pCO2 POC ABG pO2 ABG pO2 69.9 L ABG HCO3 50.8 H ABG O2 Saturation ABG Base Excess 24.2 H ABG Hemoglobin 5.8 L ABG Oxyhemoglobin ABG Sodium ABG Potassium ABG Chloride ABG Glucose Oxyhemoglobin Carboxyhemoglobin Sodium Potassium Chloride Carbon Dioxide BUN Creatinine Glucose POC Glucose 293 H 182 H Lactic Acid Calcium Phosphorus Magnesium Ferritin Total Bilirubin Direct Bilirubin AST ALT Alkaline Phosphatase Lactate Dehydrogenase C-Reactive Protein Total Protein Albumin Triglycerides Lipase Arterial Blood Glucose Arterial Blood Ionized Calcium Urine WBC (Auto) Coronavirus (PCR) SARS-CoV-2 IgG Ab Crossmatch 06/20/20 06/20/20 06/20/20 11:47 17:46 23:37 WBC RBC Hgb Hct MCV MCH MCHC RDW Lymph % (Auto) [place] % (Auto) Lymph # (Auto) [place] # (Auto) Baso # (Auto) Seg Neutrophils % Seg Neuts % (Manual) Lymphocytes % (Manual) Nucleated RBC % Seg Neutrophils # Seg Neutrophils # Man Lymphocytes # (Manual) Monocytes # (Manual) Eosinophils # (Manual) PT INR APTT D-Dimer Heparin Anti-Xa Level ABG pH POC ABG pCO2 POC ABG pO2 ABG pO2 ABG HCO3 ABG O2 Saturation ABG Base Excess ABG Hemoglobin ABG Oxyhemoglobin ABG Sodium ABG Potassium ABG Chloride ABG Glucose Oxyhemoglobin Carboxyhemoglobin Sodium Potassium Chloride Carbon Dioxide BUN Creatinine Glucose POC Glucose 170 H 215 H 256 H Lactic Acid Calcium Phosphorus Magnesium Ferritin Total Bilirubin Direct Bilirubin AST ALT Alkaline Phosphatase Lactate Dehydrogenase C-Reactive Protein Total Protein Albumin Triglycerides Lipase Arterial Blood Glucose Arterial Blood Ionized Calcium Urine WBC (Auto) Coronavirus (PCR) SARS-CoV-2 IgG Ab Crossmatch 06/21/20 06/21/20 06/21/20 04:00 05:14 05:51 WBC RBC Hgb Hct MCV MCH MCHC RDW Lymph % (Auto) [place] % (Auto) Lymph # (Auto) [place] # (Auto) Baso # (Auto) Seg Neutrophils % Seg Neuts % (Manual) Lymphocytes % (Manual) Nucleated RBC % Seg Neutrophils # Seg Neutrophils # Man Lymphocytes # (Manual) Monocytes # (Manual) Eosinophils # (Manual) PT INR APTT D-Dimer Heparin Anti-Xa Level ABG pH 7.474 H POC ABG pCO2 POC ABG pO2 ABG pO2 ABG HCO3 52.1 H ABG O2 Saturation ABG Base Excess 23.3 H ABG Hemoglobin 5.3 L ABG Oxyhemoglobin ABG Sodium ABG Potassium ABG Chloride ABG Glucose Oxyhemoglobin 93.8 L Carboxyhemoglobin Sodium Potassium Chloride Carbon Dioxide BUN Creatinine Glucose POC Glucose 122 H 129 H Lactic Acid Calcium Phosphorus Magnesium Ferritin Total Bilirubin Direct Bilirubin AST ALT Alkaline Phosphatase Lactate Dehydrogenase C-Reactive Protein Total Protein Albumin Triglycerides Lipase Arterial Blood Glucose Arterial Blood Ionized Calcium Urine WBC (Auto) Coronavirus (PCR) SARS-CoV-2 IgG Ab Crossmatch 06/21/20 06/21/20 06/21/20 11:00 11:00 11:42 WBC 14.2 H RBC 1.85 L Hgb 6.2 L Hct 19.5 L* MCV 105 H MCH 34 H MCHC RDW 18.0 H Lymph % (Auto) [place] % (Auto) Lymph # (Auto) [place] # (Auto) Baso # (Auto) Seg Neutrophils % Seg Neuts % (Manual) Lymphocytes % (Manual) Nucleated RBC % Seg Neutrophils # Seg Neutrophils # Man Lymphocytes # (Manual) Monocytes # (Manual) Eosinophils # (Manual) PT INR APTT D-Dimer Heparin Anti-Xa Level ABG pH POC ABG pCO2 POC ABG pO2 ABG pO2 ABG HCO3 ABG O2 Saturation ABG Base Excess ABG Hemoglobin ABG Oxyhemoglobin ABG Sodium ABG Potassium ABG Chloride ABG Glucose Oxyhemoglobin Carboxyhemoglobin Sodium 147 H Potassium Chloride Carbon Dioxide 51 H* BUN 31 H Creatinine 0.5 L Glucose 224 H POC Glucose 217 H Lactic Acid Calcium Phosphorus Magnesium Ferritin Total Bilirubin Direct Bilirubin AST ALT Alkaline Phosphatase Lactate Dehydrogenase C-Reactive Protein Total Protein Albumin Triglycerides Lipase Arterial Blood Glucose Arterial Blood Ionized Calcium Urine WBC (Auto) Coronavirus (PCR) SARS-CoV-2 IgG Ab Crossmatch 06/21/20 06/21/20 06/21/20 14:18 14:30 18:36 WBC RBC Hgb Hct MCV MCH MCHC RDW Lymph % (Auto) [place] % (Auto) Lymph # (Auto) [place] # (Auto) Baso # (Auto) Seg Neutrophils % Seg Neuts % (Manual) Lymphocytes % (Manual) Nucleated RBC % Seg Neutrophils # Seg Neutrophils # Man Lymphocytes # (Manual) Monocytes # (Manual) Eosinophils # (Manual) PT 15.1 H INR 1.19 H APTT D-Dimer Heparin Anti-Xa Level ABG pH POC ABG pCO2 POC ABG pO2 ABG pO2 ABG HCO3 ABG O2 Saturation ABG Base Excess ABG Hemoglobin ABG Oxyhemoglobin ABG Sodium ABG Potassium ABG Chloride ABG Glucose Oxyhemoglobin Carboxyhemoglobin Sodium Potassium Chloride Carbon Dioxide BUN Creatinine Glucose POC Glucose 185 H Lactic Acid Calcium Phosphorus Magnesium Ferritin Total Bilirubin Direct Bilirubin AST ALT Alkaline Phosphatase Lactate Dehydrogenase C-Reactive Protein Total Protein Albumin Triglycerides Lipase Arterial Blood Glucose Arterial Blood Ionized Calcium Urine WBC (Auto) Coronavirus (PCR) SARS-CoV-2 IgG Ab Crossmatch See Detail 06/21/20 06/22/20 06/22/20 21:14 03:50 04:00 WBC RBC Hgb Hct MCV MCH MCHC RDW Lymph % (Auto) [place] % (Auto) Lymph # (Auto) [place] # (Auto) Baso # (Auto) Seg Neutrophils % Seg Neuts % (Manual) Lymphocytes % (Manual) Nucleated RBC % Seg Neutrophils # Seg Neutrophils # Man Lymphocytes # (Manual) Monocytes # (Manual) Eosinophils # (Manual) PT INR APTT D-Dimer Heparin Anti-Xa Level ABG pH 7.451 H POC ABG pCO2 POC ABG pO2 ABG pO2 ABG HCO3 47.5 H ABG O2 Saturation ABG Base Excess 22.0 H ABG Hemoglobin < 5.1 L ABG Oxyhemoglobin ABG Sodium ABG Potassium ABG Chloride ABG Glucose Oxyhemoglobin 94.1 L Carboxyhemoglobin Sodium 149 H Potassium 3.5 L Chloride Carbon Dioxide 42 H* D BUN 34 H Creatinine 0.4 L Glucose 219 H POC Glucose 250 H Lactic Acid Calcium Phosphorus Magnesium Ferritin Total Bilirubin Direct Bilirubin AST ALT Alkaline Phosphatase Lactate Dehydrogenase C-Reactive Protein Total Protein Albumin Triglycerides Lipase Arterial Blood Glucose Arterial Blood Ionized Calcium Urine WBC (Auto) Coronavirus (PCR) SARS-CoV-2 IgG Ab Crossmatch 06/22/20 06/22/20 06/22/20 12:16 14:29 17:56 WBC RBC Hgb Hct MCV MCH MCHC RDW Lymph % (Auto) [place] % (Auto) Lymph # (Auto) [place] # (Auto) Baso # (Auto) Seg Neutrophils % Seg Neuts % (Manual) Lymphocytes % (Manual) Nucleated RBC % Seg Neutrophils # Seg Neutrophils # Man Lymphocytes # (Manual) Monocytes # (Manual) Eosinophils # (Manual) PT 11.8 L INR APTT 23.5 L D-Dimer Heparin Anti-Xa Level ABG pH POC ABG pCO2 POC ABG pO2 ABG pO2 ABG HCO3 ABG O2 Saturation ABG Base Excess ABG Hemoglobin ABG Oxyhemoglobin ABG Sodium ABG Potassium ABG Chloride ABG Glucose Oxyhemoglobin Carboxyhemoglobin Sodium Potassium Chloride Carbon Dioxide BUN Creatinine Glucose POC Glucose 215 H 215 H Lactic Acid Calcium Phosphorus Magnesium Ferritin Total Bilirubin Direct Bilirubin AST ALT Alkaline Phosphatase Lactate Dehydrogenase C-Reactive Protein Total Protein Albumin Triglycerides Lipase Arterial Blood Glucose Arterial Blood Ionized Calcium Urine WBC (Auto) Coronavirus (PCR) SARS-CoV-2 IgG Ab Crossmatch 06/22/20 06/22/20 06/22/20 23:36 23:45 Unknown WBC 14.1 H RBC 2.70 L Hgb 8.9 L 8.9 L Hct 26.9 L 27.2 L D MCV 101 H MCH 33 H MCHC RDW 17.7 H Lymph % (Auto) [place] % (Auto) Lymph # (Auto) [place] # (Auto) Baso # (Auto) Seg Neutrophils % Seg Neuts % (Manual) 92.0 H Lymphocytes % (Manual) 5.0 L Nucleated RBC % Seg Neutrophils # Seg Neutrophils # Man 13.0 H Lymphocytes # (Manual) 0.7 L Monocytes # (Manual) Eosinophils # (Manual) PT INR APTT D-Dimer Heparin Anti-Xa Level ABG pH POC ABG pCO2 POC ABG pO2 ABG pO2 ABG HCO3 ABG O2 Saturation ABG Base Excess ABG Hemoglobin ABG Oxyhemoglobin ABG Sodium ABG Potassium ABG Chloride ABG Glucose Oxyhemoglobin Carboxyhemoglobin Sodium Potassium Chloride Carbon Dioxide BUN Creatinine Glucose POC Glucose 208 H Lactic Acid Calcium Phosphorus Magnesium Ferritin Total Bilirubin Direct Bilirubin AST ALT Alkaline Phosphatase Lactate Dehydrogenase C-Reactive Protein Total Protein Albumin Triglycerides Lipase Arterial Blood Glucose Arterial Blood Ionized Calcium Urine WBC (Auto) Coronavirus (PCR) SARS-CoV-2 IgG Ab Crossmatch 06/23/20 06/23/20 06/23/20 05:17 05:19 06:50 WBC RBC Hgb Hct MCV MCH MCHC RDW Lymph % (Auto) [place] % (Auto) Lymph # (Auto) [place] # (Auto) Baso # (Auto) Seg Neutrophils % Seg Neuts % (Manual) Lymphocytes % (Manual) Nucleated RBC % Seg Neutrophils # Seg Neutrophils # Man Lymphocytes # (Manual) Monocytes # (Manual) Eosinophils # (Manual) PT INR APTT D-Dimer Heparin Anti-Xa Level ABG pH POC ABG pCO2 69.7 H POC ABG pO2 63.3 L ABG pO2 ABG HCO3 ABG O2 Saturation ABG Base Excess ABG Hemoglobin 10.1 L ABG Oxyhemoglobin ABG Sodium ABG Potassium 3.3 L ABG Chloride ABG Glucose 226 H Oxyhemoglobin Carboxyhemoglobin Sodium Potassium 3.0 L Chloride Carbon Dioxide 41 H* BUN 26 H Creatinine 0.4 L Glucose 209 H POC Glucose 200 H Lactic Acid Calcium Phosphorus Magnesium Ferritin Total Bilirubin Direct Bilirubin AST ALT Alkaline Phosphatase Lactate Dehydrogenase C-Reactive Protein Total Protein Albumin 2.9 L Triglycerides Lipase Arterial Blood Glucose 226 H Arterial Blood Ionized Calcium Urine WBC (Auto) Coronavirus (PCR) SARS-CoV-2 IgG Ab Crossmatch 06/23/20 06/23/20 06/23/20 09:41 12:04 18:16 WBC RBC Hgb 9.1 L Hct 28.0 L MCV MCH MCHC RDW Lymph % (Auto) [place] % (Auto) Lymph # (Auto) [place] # (Auto) Baso # (Auto) Seg Neutrophils % Seg Neuts % (Manual) Lymphocytes % (Manual) Nucleated RBC % Seg Neutrophils # Seg Neutrophils # Man Lymphocytes # (Manual) Monocytes # (Manual) Eosinophils # (Manual) PT INR APTT D-Dimer Heparin Anti-Xa Level ABG pH POC ABG pCO2 POC ABG pO2 ABG pO2 ABG HCO3 ABG O2 Saturation ABG Base Excess ABG Hemoglobin ABG Oxyhemoglobin ABG Sodium ABG Potassium ABG Chloride ABG Glucose Oxyhemoglobin Carboxyhemoglobin Sodium Potassium Chloride Carbon Dioxide BUN Creatinine Glucose POC Glucose 146 H 162 H Lactic Acid Calcium Phosphorus Magnesium Ferritin Total Bilirubin Direct Bilirubin AST ALT Alkaline Phosphatase Lactate Dehydrogenase C-Reactive Protein Total Protein Albumin Triglycerides Lipase Arterial Blood Glucose Arterial Blood Ionized Calcium Urine WBC (Auto) Coronavirus (PCR) SARS-CoV-2 IgG Ab Crossmatch 06/23/20 06/23/20 06/24/20 23:24 23:41 02:39 WBC RBC Hgb 8.2 L 8.8 L Hct 24.9 L 26.8 L MCV MCH MCHC RDW Lymph % (Auto) [place] % (Auto) Lymph # (Auto) [place] # (Auto) Baso # (Auto) Seg Neutrophils % Seg Neuts % (Manual) Lymphocytes % (Manual) Nucleated RBC % Seg Neutrophils # Seg Neutrophils # Man Lymphocytes # (Manual) Monocytes # (Manual) Eosinophils # (Manual) PT INR APTT D-Dimer Heparin Anti-Xa Level ABG pH POC ABG pCO2 POC ABG pO2 ABG pO2 ABG HCO3 ABG O2 Saturation ABG Base Excess ABG Hemoglobin ABG Oxyhemoglobin ABG Sodium ABG Potassium ABG Chloride ABG Glucose Oxyhemoglobin Carboxyhemoglobin Sodium Potassium Chloride Carbon Dioxide BUN Creatinine Glucose POC Glucose 248 H Lactic Acid Calcium Phosphorus Magnesium Ferritin Total Bilirubin Direct Bilirubin AST ALT Alkaline Phosphatase Lactate Dehydrogenase C-Reactive Protein Total Protein Albumin Triglycerides Lipase Arterial Blood Glucose Arterial Blood Ionized Calcium Urine WBC (Auto) Coronavirus (PCR) SARS-CoV-2 IgG Ab Crossmatch 06/24/20 06/24/20 06/24/20 02:39 02:45 05:31 WBC RBC Hgb Hct MCV MCH MCHC RDW Lymph % (Auto) [place] % (Auto) Lymph # (Auto) [place] # (Auto) Baso # (Auto) Seg Neutrophils % Seg Neuts % (Manual) Lymphocytes % (Manual) Nucleated RBC % Seg Neutrophils # Seg Neutrophils # Man Lymphocytes # (Manual) Monocytes # (Manual) Eosinophils # (Manual) PT INR APTT D-Dimer Heparin Anti-Xa Level ABG pH POC ABG pCO2 66.9 H POC ABG pO2 109.7 H ABG pO2 ABG HCO3 ABG O2 Saturation ABG Base Excess ABG Hemoglobin 9.7 L ABG Oxyhemoglobin ABG Sodium 135.0 L ABG Potassium ABG Chloride 97.0 L ABG Glucose 277 H Oxyhemoglobin Carboxyhemoglobin Sodium 136 L Potassium Chloride 95.0 L Carbon Dioxide 34 H D BUN 24 H Creatinine 0.3 L Glucose 260 H POC Glucose 164 H Lactic Acid Calcium Phosphorus Magnesium Ferritin Total Bilirubin Direct Bilirubin AST ALT Alkaline Phosphatase Lactate Dehydrogenase C-Reactive Protein Total Protein 5.2 L Albumin 2.6 L Triglycerides Lipase Arterial Blood Glucose 277 H Arterial Blood Ionized Calcium Urine WBC (Auto) Coronavirus (PCR) SARS-CoV-2 IgG Ab Crossmatch 06/24/20 06/24/20 06/24/20 10:00 11:49 17:39 WBC RBC Hgb 8.9 L Hct 26.5 L MCV MCH MCHC RDW Lymph % (Auto) [place] % (Auto) Lymph # (Auto) [place] # (Auto) Baso # (Auto) Seg Neutrophils % Seg Neuts % (Manual) Lymphocytes % (Manual) Nucleated RBC % Seg Neutrophils # Seg Neutrophils # Man Lymphocytes # (Manual) Monocytes # (Manual) Eosinophils # (Manual) PT INR APTT D-Dimer Heparin Anti-Xa Level ABG pH POC ABG pCO2 POC ABG pO2 ABG pO2 ABG HCO3 ABG O2 Saturation ABG Base Excess ABG Hemoglobin ABG Oxyhemoglobin ABG Sodium ABG Potassium ABG Chloride ABG Glucose Oxyhemoglobin Carboxyhemoglobin Sodium Potassium Chloride Carbon Dioxide BUN Creatinine Glucose POC Glucose 198 H 223 H Lactic Acid Calcium Phosphorus Magnesium Ferritin Total Bilirubin Direct Bilirubin AST ALT Alkaline Phosphatase Lactate Dehydrogenase C-Reactive Protein Total Protein Albumin Triglycerides Lipase Arterial Blood Glucose Arterial Blood Ionized Calcium Urine WBC (Auto) Coronavirus (PCR) SARS-CoV-2 IgG Ab Crossmatch 06/24/20 06/25/20 06/25/20 23:56 02:16 04:08 WBC RBC Hgb Hct MCV MCH MCHC RDW Lymph % (Auto) [place] % (Auto) Lymph # (Auto) [place] # (Auto) Baso # (Auto) Seg Neutrophils % Seg Neuts % (Manual) Lymphocytes % (Manual) Nucleated RBC % Seg Neutrophils # Seg Neutrophils # Man Lymphocytes # (Manual) Monocytes # (Manual) Eosinophils # (Manual) PT INR APTT D-Dimer Heparin Anti-Xa Level ABG pH 7.454 H POC ABG pCO2 56.9 H POC ABG pO2 61.0 L ABG pO2 ABG HCO3 ABG O2 Saturation ABG Base Excess ABG Hemoglobin ABG Oxyhemoglobin ABG Sodium 134.3 L ABG Potassium ABG Chloride 92.0 L ABG Glucose 246 H Oxyhemoglobin Carboxyhemoglobin Sodium 134 L Potassium Chloride 89.7 L Carbon Dioxide 36 H BUN Creatinine 0.3 L Glucose 254 H POC Glucose 225 H Lactic Acid Calcium Phosphorus Magnesium Ferritin Total Bilirubin Direct Bilirubin AST ALT Alkaline Phosphatase Lactate Dehydrogenase C-Reactive Protein Total Protein Albumin 2.9 L Triglycerides Lipase Arterial Blood Glucose 246 H Arterial Blood Ionized Calcium Urine WBC (Auto) Coronavirus (PCR) SARS-CoV-2 IgG Ab Crossmatch 06/25/20 06/25/20 06/25/20 05:44 11:35 17:33 WBC RBC Hgb Hct MCV MCH MCHC RDW Lymph % (Auto) [place] % (Auto) Lymph # (Auto) [place] # (Auto) Baso # (Auto) Seg Neutrophils % Seg Neuts % (Manual) Lymphocytes % (Manual) Nucleated RBC % Seg Neutrophils # Seg Neutrophils # Man Lymphocytes # (Manual) Monocytes # (Manual) Eosinophils # (Manual) PT INR APTT D-Dimer Heparin Anti-Xa Level ABG pH POC ABG pCO2 POC ABG pO2 ABG pO2 ABG HCO3 ABG O2 Saturation ABG Base Excess ABG Hemoglobin ABG Oxyhemoglobin ABG Sodium ABG Potassium ABG Chloride ABG Glucose Oxyhemoglobin Carboxyhemoglobin Sodium Potassium Chloride Carbon Dioxide BUN Creatinine Glucose POC Glucose 170 H 175 H 229 H Lactic Acid Calcium Phosphorus Magnesium Ferritin Total Bilirubin Direct Bilirubin AST ALT Alkaline Phosphatase Lactate Dehydrogenase C-Reactive Protein Total Protein Albumin Triglycerides Lipase Arterial Blood Glucose Arterial Blood Ionized Calcium Urine WBC (Auto) Coronavirus (PCR) SARS-CoV-2 IgG Ab Crossmatch 06/25/20 06/26/20 06/26/20 23:55 02:17 02:17 WBC RBC Hgb 10.0 L Hct 30.4 L MCV MCH MCHC RDW Lymph % (Auto) [place] % (Auto) Lymph # (Auto) [place] # (Auto) Baso # (Auto) Seg Neutrophils % Seg Neuts % (Manual) Lymphocytes % (Manual) Nucleated RBC % Seg Neutrophils # Seg Neutrophils # Man Lymphocytes # (Manual) Monocytes # (Manual) Eosinophils # (Manual) PT INR APTT D-Dimer Heparin Anti-Xa Level ABG pH POC ABG pCO2 POC ABG pO2 ABG pO2 ABG HCO3 ABG O2 Saturation ABG Base Excess ABG Hemoglobin ABG Oxyhemoglobin ABG Sodium ABG Potassium ABG Chloride ABG Glucose Oxyhemoglobin Carboxyhemoglobin Sodium 136 L Potassium Chloride 90.1 L Carbon Dioxide 39 H BUN Creatinine 0.2 L Glucose 232 H POC Glucose 192 H Lactic Acid Calcium Phosphorus Magnesium Ferritin Total Bilirubin Direct Bilirubin AST ALT Alkaline Phosphatase Lactate Dehydrogenase C-Reactive Protein Total Protein 6.1 L Albumin 2.9 L Triglycerides Lipase Arterial Blood Glucose Arterial Blood Ionized Calcium Urine WBC (Auto) Coronavirus (PCR) SARS-CoV-2 IgG Ab Crossmatch 06/26/20 06/26/20 06/26/20 04:15 04:49 05:28 WBC RBC Hgb Hct MCV MCH MCHC RDW Lymph % (Auto) [place] % (Auto) Lymph # (Auto) [place] # (Auto) Baso # (Auto) Seg Neutrophils % Seg Neuts % (Manual) Lymphocytes % (Manual) Nucleated RBC % Seg Neutrophils # Seg Neutrophils # Man Lymphocytes # (Manual) Monocytes # (Manual) Eosinophils # (Manual) PT INR APTT D-Dimer Heparin Anti-Xa Level ABG pH 7.453 H POC ABG pCO2 59.6 H POC ABG pO2 ABG pO2 ABG HCO3 ABG O2 Saturation ABG Base Excess ABG Hemoglobin 10.0 L ABG Oxyhemoglobin ABG Sodium 134.2 L ABG Potassium 3.3 L ABG Chloride 92.0 L ABG Glucose 305 H Oxyhemoglobin Carboxyhemoglobin Sodium Potassium Chloride Carbon Dioxide BUN Creatinine Glucose POC Glucose 234 H Lactic Acid Calcium Phosphorus Magnesium Ferritin Total Bilirubin Direct Bilirubin AST ALT Alkaline Phosphatase Lactate Dehydrogenase C-Reactive Protein Total Protein Albumin Triglycerides 203 H Lipase Arterial Blood Glucose 305 H Arterial Blood Ionized Calcium Urine WBC (Auto) Coronavirus (PCR) SARS-CoV-2 IgG Ab Crossmatch 06/26/20 06/26/20 06/26/20 11:58 17:58 21:32 WBC RBC Hgb Hct MCV MCH MCHC RDW Lymph % (Auto) [place] % (Auto) Lymph # (Auto) [place] # (Auto) Baso # (Auto) Seg Neutrophils % Seg Neuts % (Manual) Lymphocytes % (Manual) Nucleated RBC % Seg Neutrophils # Seg Neutrophils # Man Lymphocytes # (Manual) Monocytes # (Manual) Eosinophils # (Manual) PT INR APTT D-Dimer Heparin Anti-Xa Level ABG pH POC ABG pCO2 POC ABG pO2 ABG pO2 ABG HCO3 ABG O2 Saturation ABG Base Excess ABG Hemoglobin ABG Oxyhemoglobin ABG Sodium ABG Potassium ABG Chloride ABG Glucose Oxyhemoglobin Carboxyhemoglobin Sodium Potassium Chloride Carbon Dioxide BUN Creatinine Glucose POC Glucose 198 H 193 H 191 H Lactic Acid Calcium Phosphorus Magnesium Ferritin Total Bilirubin Direct Bilirubin AST ALT Alkaline Phosphatase Lactate Dehydrogenase C-Reactive Protein Total Protein Albumin Triglycerides Lipase Arterial Blood Glucose Arterial Blood Ionized Calcium Urine WBC (Auto) Coronavirus (PCR) SARS-CoV-2 IgG Ab Crossmatch 06/26/20 06/27/20 06/27/20 23:40 04:35 05:32 WBC RBC Hgb Hct MCV MCH MCHC RDW Lymph % (Auto) [place] % (Auto) Lymph # (Auto) [place] # (Auto) Baso # (Auto) Seg Neutrophils % Seg Neuts % (Manual) Lymphocytes % (Manual) Nucleated RBC % Seg Neutrophils # Seg Neutrophils # Man Lymphocytes # (Manual) Monocytes # (Manual) Eosinophils # (Manual) PT INR APTT D-Dimer Heparin Anti-Xa Level ABG pH 7.464 H POC ABG pCO2 60.8 H POC ABG pO2 ABG pO2 ABG HCO3 ABG O2 Saturation ABG Base Excess ABG Hemoglobin 10.1 L ABG Oxyhemoglobin ABG Sodium ABG Potassium 2.9 L ABG Chloride 92.0 L ABG Glucose 298 H Oxyhemoglobin Carboxyhemoglobin Sodium Potassium Chloride Carbon Dioxide BUN Creatinine Glucose POC Glucose 241 H 211 H Lactic Acid Calcium Phosphorus Magnesium Ferritin Total Bilirubin Direct Bilirubin AST ALT Alkaline Phosphatase Lactate Dehydrogenase C-Reactive Protein Total Protein Albumin Triglycerides Lipase Arterial Blood Glucose 298 H Arterial Blood Ionized Calcium Urine WBC (Auto) Coronavirus (PCR) SARS-CoV-2 IgG Ab Crossmatch 06/27/20 06/27/20 06/27/20 12:37 18:08 20:52 WBC RBC Hgb Hct MCV MCH MCHC RDW Lymph % (Auto) [place] % (Auto) Lymph # (Auto) [place] # (Auto) Baso # (Auto) Seg Neutrophils % Seg Neuts % (Manual) Lymphocytes % (Manual) Nucleated RBC % Seg Neutrophils # Seg Neutrophils # Man Lymphocytes # (Manual) Monocytes # (Manual) Eosinophils # (Manual) PT INR APTT D-Dimer Heparin Anti-Xa Level ABG pH POC ABG pCO2 POC ABG pO2 ABG pO2 ABG HCO3 ABG O2 Saturation ABG Base Excess ABG Hemoglobin ABG Oxyhemoglobin ABG Sodium ABG Potassium ABG Chloride ABG Glucose Oxyhemoglobin Carboxyhemoglobin Sodium Potassium Chloride Carbon Dioxide BUN Creatinine Glucose POC Glucose 182 H 197 H 195 H Lactic Acid Calcium Phosphorus Magnesium Ferritin Total Bilirubin Direct Bilirubin AST ALT Alkaline Phosphatase Lactate Dehydrogenase C-Reactive Protein Total Protein Albumin Triglycerides Lipase Arterial Blood Glucose Arterial Blood Ionized Calcium Urine WBC (Auto) Coronavirus (PCR) SARS-CoV-2 IgG Ab Crossmatch 06/27/20 06/28/20 06/28/20 Unknown 04:17 04:50 WBC RBC Hgb Hct MCV MCH MCHC RDW Lymph % (Auto) [place] % (Auto) Lymph # (Auto) [place] # (Auto) Baso # (Auto) Seg Neutrophils % Seg Neuts % (Manual) Lymphocytes % (Manual) Nucleated RBC % Seg Neutrophils # Seg Neutrophils # Man Lymphocytes # (Manual) Monocytes # (Manual) Eosinophils # (Manual) PT INR APTT D-Dimer Heparin Anti-Xa Level ABG pH POC ABG pCO2 58.6 H POC ABG pO2 60.1 L ABG pO2 ABG HCO3 ABG O2 Saturation ABG Base Excess ABG Hemoglobin 10.0 L ABG Oxyhemoglobin ABG Sodium 125.3 L ABG Potassium ABG Chloride 93.0 L ABG Glucose 308 H Oxyhemoglobin Carboxyhemoglobin Sodium Potassium 2.9 L* Chloride 93.4 L Carbon Dioxide 42 H* BUN Creatinine 0.3 L Glucose 211 H POC Glucose 252 H Lactic Acid Calcium 8.1 L Phosphorus Magnesium Ferritin Total Bilirubin Direct Bilirubin AST ALT Alkaline Phosphatase Lactate Dehydrogenase C-Reactive Protein Total Protein 5.1 L Albumin 2.4 L Triglycerides Lipase Arterial Blood Glucose 308 H Arterial Blood Ionized Calcium Urine WBC (Auto) Coronavirus (PCR) SARS-CoV-2 IgG Ab Crossmatch 06/28/20 06/28/20 06/28/20 06:35 06:35 11:36 WBC 18.9 H RBC 2.85 L Hgb 9.5 L Hct 28.4 L MCV 100 H MCH 33 H MCHC RDW 17.3 H Lymph % (Auto) [place] % (Auto) Lymph # (Auto) [place] # (Auto) Baso # (Auto) Seg Neutrophils % 88.6 H Seg Neuts % (Manual) 95.0 H Lymphocytes % (Manual) 1.0 L Nucleated RBC % Seg Neutrophils # 15.9 H Seg Neutrophils # Man 18.0 H Lymphocytes # (Manual) 0.2 L Monocytes # (Manual) Eosinophils # (Manual) PT INR APTT D-Dimer Heparin Anti-Xa Level ABG pH POC ABG pCO2 POC ABG pO2 ABG pO2 ABG HCO3 ABG O2 Saturation ABG Base Excess ABG Hemoglobin ABG Oxyhemoglobin ABG Sodium ABG Potassium ABG Chloride ABG Glucose Oxyhemoglobin Carboxyhemoglobin Sodium Potassium Chloride 94.2 L Carbon Dioxide 38 H BUN Creatinine 0.3 L Glucose 228 H POC Glucose 243 H Lactic Acid Calcium Phosphorus Magnesium Ferritin Total Bilirubin Direct Bilirubin AST ALT Alkaline Phosphatase Lactate Dehydrogenase C-Reactive Protein Total Protein 6.1 L Albumin 2.7 L Triglycerides Lipase Arterial Blood Glucose Arterial Blood Ionized Calcium Urine WBC (Auto) Coronavirus (PCR) SARS-CoV-2 IgG Ab Crossmatch 06/28/20 06/28/20 06/29/20 16:53 21:10 00:06 WBC RBC Hgb Hct MCV MCH MCHC RDW Lymph % (Auto) [place] % (Auto) Lymph # (Auto) [place] # (Auto) Baso # (Auto) Seg Neutrophils % Seg Neuts % (Manual) Lymphocytes % (Manual) Nucleated RBC % Seg Neutrophils # Seg Neutrophils # Man Lymphocytes # (Manual) Monocytes # (Manual) Eosinophils # (Manual) PT INR APTT D-Dimer Heparin Anti-Xa Level ABG pH POC ABG pCO2 POC ABG pO2 ABG pO2 ABG HCO3 ABG O2 Saturation ABG Base Excess ABG Hemoglobin ABG Oxyhemoglobin ABG Sodium ABG Potassium ABG Chloride ABG Glucose Oxyhemoglobin Carboxyhemoglobin Sodium Potassium Chloride Carbon Dioxide BUN Creatinine Glucose POC Glucose 211 H 195 H 200 H Lactic Acid Calcium Phosphorus Magnesium Ferritin Total Bilirubin Direct Bilirubin AST ALT Alkaline Phosphatase Lactate Dehydrogenase C-Reactive Protein Total Protein Albumin Triglycerides Lipase Arterial Blood Glucose Arterial Blood Ionized Calcium Urine WBC (Auto) Coronavirus (PCR) SARS-CoV-2 IgG Ab Crossmatch 06/29/20 06/29/20 06/29/20 03:11 04:00 04:00 WBC 18.8 H RBC 2.82 L Hgb 10.1 L Hct 28.5 L MCV 101 H MCH 36 H MCHC 36 H RDW 17.5 H Lymph % (Auto) 10.7 L [place] % (Auto) Lymph # (Auto) [place] # (Auto) 1.0 H Baso # (Auto) 0.3 H Seg Neutrophils % 82.2 H Seg Neuts % (Manual) Lymphocytes % (Manual) Nucleated RBC % Seg Neutrophils # 15.5 H Seg Neutrophils # Man Lymphocytes # (Manual) Monocytes # (Manual) Eosinophils # (Manual) PT INR APTT D-Dimer Heparin Anti-Xa Level ABG pH POC ABG pCO2 57.5 H POC ABG pO2 69.1 L ABG pO2 ABG HCO3 ABG O2 Saturation ABG Base Excess ABG Hemoglobin 10.2 L ABG Oxyhemoglobin 92.3 L ABG Sodium 130.7 L ABG Potassium 3.2 L ABG Chloride 93.0 L ABG Glucose 228 H Oxyhemoglobin Carboxyhemoglobin Sodium 134 L Potassium 3.3 L Chloride 89.5 L Carbon Dioxide 40 H BUN Creatinine 0.2 L Glucose 190 H POC Glucose Lactic Acid Calcium Phosphorus Magnesium Ferritin Total Bilirubin Direct Bilirubin AST < 5 L ALT < 5 L Alkaline Phosphatase Lactate Dehydrogenase C-Reactive Protein Total Protein 5.9 L Albumin 2.2 L Triglycerides Lipase Arterial Blood Glucose 228 H Arterial Blood Ionized Calcium Urine WBC (Auto) Coronavirus (PCR) SARS-CoV-2 IgG Ab Crossmatch 06/29/20 06/29/20 06/29/20 05:00 05:23 09:36 WBC RBC Hgb Hct MCV MCH MCHC RDW Lymph % (Auto) [place] % (Auto) Lymph # (Auto) [place] # (Auto) Baso # (Auto) Seg Neutrophils % Seg Neuts % (Manual) Lymphocytes % (Manual) Nucleated RBC % Seg Neutrophils # Seg Neutrophils # Man Lymphocytes # (Manual) Monocytes # (Manual) Eosinophils # (Manual) PT INR APTT D-Dimer Heparin Anti-Xa Level ABG pH POC ABG pCO2 POC ABG pO2 ABG pO2 ABG HCO3 ABG O2 Saturation ABG Base Excess ABG Hemoglobin ABG Oxyhemoglobin ABG Sodium ABG Potassium ABG Chloride ABG Glucose Oxyhemoglobin Carboxyhemoglobin Sodium Potassium Chloride Carbon Dioxide BUN Creatinine Glucose POC Glucose 165 H Lactic Acid Calcium Phosphorus Magnesium Ferritin Total Bilirubin Direct Bilirubin AST ALT Alkaline Phosphatase Lactate Dehydrogenase C-Reactive Protein Total Protein Albumin Triglycerides 1544 H 1799 H Lipase Arterial Blood Glucose Arterial Blood Ionized Calcium Urine WBC (Auto) Coronavirus (PCR) SARS-CoV-2 IgG Ab Crossmatch 06/29/20 06/29/20 06/29/20 09:36 12:02 18:00 WBC RBC Hgb Hct MCV MCH MCHC RDW Lymph % (Auto) [place] % (Auto) Lymph # (Auto) [place] # (Auto) Baso # (Auto) Seg Neutrophils % Seg Neuts % (Manual) Lymphocytes % (Manual) Nucleated RBC % Seg Neutrophils # Seg Neutrophils # Man Lymphocytes # (Manual) Monocytes # (Manual) Eosinophils # (Manual) PT INR APTT D-Dimer Heparin Anti-Xa Level ABG pH POC ABG pCO2 POC ABG pO2 ABG pO2 ABG HCO3 ABG O2 Saturation ABG Base Excess ABG Hemoglobin ABG Oxyhemoglobin ABG Sodium ABG Potassium ABG Chloride ABG Glucose Oxyhemoglobin Carboxyhemoglobin Sodium Potassium Chloride Carbon Dioxide BUN Creatinine Glucose POC Glucose 197 H 187 H Lactic Acid Calcium Phosphorus Magnesium Ferritin Total Bilirubin Direct Bilirubin AST ALT Alkaline Phosphatase Lactate Dehydrogenase C-Reactive Protein Total Protein Albumin Triglycerides Lipase 86 H Arterial Blood Glucose Arterial Blood Ionized Calcium Urine WBC (Auto) Coronavirus (PCR) SARS-CoV-2 IgG Ab Crossmatch 06/29/20 06/30/20 06/30/20 23:33 03:46 05:50 WBC RBC Hgb Hct MCV MCH MCHC RDW Lymph % (Auto) [place] % (Auto) Lymph # (Auto) [place] # (Auto) Baso # (Auto) Seg Neutrophils % Seg Neuts % (Manual) Lymphocytes % (Manual) Nucleated RBC % Seg Neutrophils # Seg Neutrophils # Man Lymphocytes # (Manual) Monocytes # (Manual) Eosinophils # (Manual) PT INR APTT D-Dimer Heparin Anti-Xa Level ABG pH 7.466 H POC ABG pCO2 57.3 H POC ABG pO2 66.1 L ABG pO2 ABG HCO3 ABG O2 Saturation ABG Base Excess ABG Hemoglobin 10.2 L ABG Oxyhemoglobin 92.3 L ABG Sodium 134.4 L ABG Potassium 3.2 L ABG Chloride 94.0 L ABG Glucose 178 H Oxyhemoglobin Carboxyhemoglobin Sodium Potassium Chloride Carbon Dioxide BUN Creatinine Glucose POC Glucose 170 H 170 H Lactic Acid Calcium Phosphorus Magnesium Ferritin Total Bilirubin Direct Bilirubin AST ALT Alkaline Phosphatase Lactate Dehydrogenase C-Reactive Protein Total Protein Albumin Triglycerides Lipase Arterial Blood Glucose 178 H Arterial Blood Ionized Calcium Urine WBC (Auto) Coronavirus (PCR) SARS-CoV-2 IgG Ab Crossmatch 06/30/20 06/30/20 06/30/20 07:00 07:00 12:04 WBC 15.6 H RBC 2.91 L Hgb 9.8 L Hct 29.7 L MCV 102 H MCH 34 H MCHC RDW 17.8 H Lymph % (Auto) [place] % (Auto) Lymph # (Auto) [place] # (Auto) Baso # (Auto) Seg Neutrophils % Seg Neuts % (Manual) Lymphocytes % (Manual) 5.0 L Nucleated RBC % Seg Neutrophils # Seg Neutrophils # Man 14.8 H Lymphocytes # (Manual) 0.8 L Monocytes # (Manual) Eosinophils # (Manual) PT INR APTT D-Dimer Heparin Anti-Xa Level ABG pH POC ABG pCO2 POC ABG pO2 ABG pO2 ABG HCO3 ABG O2 Saturation ABG Base Excess ABG Hemoglobin ABG Oxyhemoglobin ABG Sodium ABG Potassium ABG Chloride ABG Glucose Oxyhemoglobin Carboxyhemoglobin Sodium Potassium Chloride 93.3 L Carbon Dioxide 43 H* BUN Creatinine 0.3 L Glucose 260 H POC Glucose 245 H Lactic Acid Calcium Phosphorus Magnesium Ferritin Total Bilirubin Direct Bilirubin AST ALT Alkaline Phosphatase Lactate Dehydrogenase C-Reactive Protein Total Protein Albumin 2.8 L Triglycerides 452 H Lipase Arterial Blood Glucose Arterial Blood Ionized Calcium Urine WBC (Auto) Coronavirus (PCR) SARS-CoV-2 IgG Ab Crossmatch 06/30/20 07/01/20 07/01/20 17:32 00:02 05:02 WBC RBC Hgb Hct MCV MCH MCHC RDW Lymph % (Auto) [place] % (Auto) Lymph # (Auto) [place] # (Auto) Baso # (Auto) Seg Neutrophils % Seg Neuts % (Manual) Lymphocytes % (Manual) Nucleated RBC % Seg Neutrophils # Seg Neutrophils # Man Lymphocytes # (Manual) Monocytes # (Manual) Eosinophils # (Manual) PT INR APTT D-Dimer Heparin Anti-Xa Level ABG pH POC ABG pCO2 58.1 H POC ABG pO2 ABG pO2 ABG HCO3 ABG O2 Saturation ABG Base Excess ABG Hemoglobin 11.2 L ABG Oxyhemoglobin ABG Sodium 132.7 L ABG Potassium ABG Chloride 92.0 L ABG Glucose 238 H Oxyhemoglobin Carboxyhemoglobin Sodium Potassium Chloride Carbon Dioxide BUN Creatinine Glucose POC Glucose 209 H 208 H Lactic Acid Calcium Phosphorus Magnesium Ferritin Total Bilirubin Direct Bilirubin AST ALT Alkaline Phosphatase Lactate Dehydrogenase C-Reactive Protein Total Protein Albumin Triglycerides Lipase Arterial Blood Glucose 238 H Arterial Blood Ionized Calcium Urine WBC (Auto) Coronavirus (PCR) SARS-CoV-2 IgG Ab Crossmatch 07/01/20 07/01/20 07/01/20 06:16 06:41 06:41 WBC 18.1 H RBC 2.33 L Hgb 7.1 L Hct 21.3 L D MCV MCH MCHC RDW Lymph % (Auto) [place] % (Auto) Lymph # (Auto) [place] # (Auto) Baso # (Auto) Seg Neutrophils % Seg Neuts % (Manual) 82.0 H Lymphocytes % (Manual) 7.0 L Nucleated RBC % 1.0 H Seg Neutrophils # Seg Neutrophils # Man 14.8 H Lymphocytes # (Manual) Monocytes # (Manual) 1.1 H Eosinophils # (Manual) 0.5 H PT INR APTT D-Dimer Heparin Anti-Xa Level < 0.10 L ABG pH POC ABG pCO2 POC ABG pO2 ABG pO2 ABG HCO3 ABG O2 Saturation ABG Base Excess ABG Hemoglobin ABG Oxyhemoglobin ABG Sodium ABG Potassium ABG Chloride ABG Glucose Oxyhemoglobin Carboxyhemoglobin Sodium Potassium Chloride Carbon Dioxide BUN Creatinine Glucose POC Glucose 180 H Lactic Acid Calcium Phosphorus Magnesium Ferritin Total Bilirubin Direct Bilirubin AST ALT Alkaline Phosphatase Lactate Dehydrogenase C-Reactive Protein Total Protein Albumin Triglycerides Lipase Arterial Blood Glucose Arterial Blood Ionized Calcium Urine WBC (Auto) Coronavirus (PCR) SARS-CoV-2 IgG Ab Crossmatch 07/01/20 07/01/20 07/01/20 08:11 12:04 16:16 WBC RBC Hgb Hct MCV MCH MCHC RDW Lymph % (Auto) [place] % (Auto) Lymph # (Auto) [place] # (Auto) Baso # (Auto) Seg Neutrophils % Seg Neuts % (Manual) Lymphocytes % (Manual) Nucleated RBC % Seg Neutrophils # Seg Neutrophils # Man Lymphocytes # (Manual) Monocytes # (Manual) Eosinophils # (Manual) PT INR APTT D-Dimer Heparin Anti-Xa Level 1.02 H ABG pH POC ABG pCO2 POC ABG pO2 ABG pO2 ABG HCO3 ABG O2 Saturation ABG Base Excess ABG Hemoglobin ABG Oxyhemoglobin ABG Sodium ABG Potassium ABG Chloride ABG Glucose Oxyhemoglobin Carboxyhemoglobin Sodium 135 L Potassium 3.0 L Chloride 93.1 L Carbon Dioxide 40 H BUN Creatinine 0.3 L Glucose 140 H POC Glucose 223 H Lactic Acid Calcium Phosphorus Magnesium Ferritin Total Bilirubin Direct Bilirubin AST ALT Alkaline Phosphatase Lactate Dehydrogenase C-Reactive Protein Total Protein Albumin Triglycerides Lipase Arterial Blood Glucose Arterial Blood Ionized Calcium Urine WBC (Auto) Coronavirus (PCR) SARS-CoV-2 IgG Ab Crossmatch 07/01/20 07/01/20 07/02/20 17:09 23:19 00:56 WBC RBC Hgb Hct MCV MCH MCHC RDW Lymph % (Auto) [place] % (Auto) Lymph # (Auto) [place] # (Auto) Baso # (Auto) Seg Neutrophils % Seg Neuts % (Manual) Lymphocytes % (Manual) Nucleated RBC % Seg Neutrophils # Seg Neutrophils # Man Lymphocytes # (Manual) Monocytes # (Manual) Eosinophils # (Manual) PT INR APTT D-Dimer Heparin Anti-Xa Level 0.22 L ABG pH POC ABG pCO2 POC ABG pO2 ABG pO2 ABG HCO3 ABG O2 Saturation ABG Base Excess ABG Hemoglobin ABG Oxyhemoglobin ABG Sodium ABG Potassium ABG Chloride ABG Glucose Oxyhemoglobin Carboxyhemoglobin Sodium Potassium Chloride Carbon Dioxide BUN Creatinine Glucose POC Glucose 233 H 255 H Lactic Acid Calcium Phosphorus Magnesium Ferritin Total Bilirubin Direct Bilirubin AST ALT Alkaline Phosphatase Lactate Dehydrogenase C-Reactive Protein Total Protein Albumin Triglycerides Lipase Arterial Blood Glucose Arterial Blood Ionized Calcium Urine WBC (Auto) Coronavirus (PCR) SARS-CoV-2 IgG Ab Crossmatch 07/02/20 07/02/20 07/02/20 03:51 05:35 11:39 WBC RBC Hgb Hct MCV MCH MCHC RDW Lymph % (Auto) [place] % (Auto) Lymph # (Auto) [place] # (Auto) Baso # (Auto) Seg Neutrophils % Seg Neuts % (Manual) Lymphocytes % (Manual) Nucleated RBC % Seg Neutrophils # Seg Neutrophils # Man Lymphocytes # (Manual) Monocytes # (Manual) Eosinophils # (Manual) PT INR APTT D-Dimer Heparin Anti-Xa Level ABG pH POC ABG pCO2 54.9 H POC ABG pO2 52.1 L ABG pO2 ABG HCO3 ABG O2 Saturation ABG Base Excess ABG Hemoglobin 11.9 L ABG Oxyhemoglobin 82.8 L ABG Sodium 130.2 L ABG Potassium ABG Chloride 92.0 L ABG Glucose 249 H Oxyhemoglobin Carboxyhemoglobin 1.9 H Sodium Potassium Chloride Carbon Dioxide BUN Creatinine Glucose POC Glucose 205 H 235 H Lactic Acid Calcium Phosphorus Magnesium Ferritin Total Bilirubin Direct Bilirubin AST ALT Alkaline Phosphatase Lactate Dehydrogenase C-Reactive Protein Total Protein Albumin Triglycerides Lipase Arterial Blood Glucose 249 H Arterial Blood Ionized Calcium Urine WBC (Auto) Coronavirus (PCR) SARS-CoV-2 IgG Ab Crossmatch 07/02/20 07/02/20 07/02/20 16:08 16:08 17:54 WBC 19.8 H RBC 3.28 L Hgb 10.7 L D Hct 32.7 L D MCV 100 H MCH 33 H MCHC RDW 17.2 H Lymph % (Auto) [place] % (Auto) Lymph # (Auto) [place] # (Auto) Baso # (Auto) Seg Neutrophils % Seg Neuts % (Manual) Lymphocytes % (Manual) Nucleated RBC % Seg Neutrophils # Seg Neutrophils # Man Lymphocytes # (Manual) Monocytes # (Manual) Eosinophils # (Manual) PT INR APTT D-Dimer Heparin Anti-Xa Level ABG pH POC ABG pCO2 POC ABG pO2 ABG pO2 ABG HCO3 ABG O2 Saturation ABG Base Excess ABG Hemoglobin ABG Oxyhemoglobin ABG Sodium ABG Potassium ABG Chloride ABG Glucose Oxyhemoglobin Carboxyhemoglobin Sodium 136 L Potassium Chloride 92.4 L Carbon Dioxide 35 H BUN Creatinine 0.3 L Glucose 203 H POC Glucose 175 H Lactic Acid Calcium Phosphorus Magnesium Ferritin Total Bilirubin Direct Bilirubin AST ALT Alkaline Phosphatase Lactate Dehydrogenase C-Reactive Protein Total Protein Albumin Triglycerides Lipase Arterial Blood Glucose Arterial Blood Ionized Calcium Urine WBC (Auto) Coronavirus (PCR) SARS-CoV-2 IgG Ab Crossmatch 07/02/20 07/03/20 07/03/20 23:46 03:25 05:54 WBC RBC Hgb Hct MCV MCH MCHC RDW Lymph % (Auto) [place] % (Auto) Lymph # (Auto) [place] # (Auto) Baso # (Auto) Seg Neutrophils % Seg Neuts % (Manual) Lymphocytes % (Manual) Nucleated RBC % Seg Neutrophils # Seg Neutrophils # Man Lymphocytes # (Manual) Monocytes # (Manual) Eosinophils # (Manual) PT INR APTT D-Dimer Heparin Anti-Xa Level ABG pH 7.468 H POC ABG pCO2 51.5 H POC ABG pO2 ABG pO2 ABG HCO3 ABG O2 Saturation ABG Base Excess ABG Hemoglobin ABG Oxyhemoglobin ABG Sodium 130.2 L ABG Potassium ABG Chloride 91.0 L ABG Glucose 210 H Oxyhemoglobin Carboxyhemoglobin 1.6 H Sodium Potassium Chloride Carbon Dioxide BUN Creatinine Glucose POC Glucose 173 H 125 H Lactic Acid Calcium Phosphorus Magnesium Ferritin Total Bilirubin Direct Bilirubin AST ALT Alkaline Phosphatase Lactate Dehydrogenase C-Reactive Protein Total Protein Albumin Triglycerides Lipase Arterial Blood Glucose 210 H Arterial Blood Ionized Calcium Urine WBC (Auto) Coronavirus (PCR) SARS-CoV-2 IgG Ab Crossmatch 07/03/20 07/03/20 07/03/20 11:43 12:20 12:20 WBC 16.5 H RBC 3.13 L Hgb 10.4 L Hct 31.8 L MCV 102 H MCH 33 H MCHC RDW 17.2 H Lymph % (Auto) [place] % (Auto) Lymph # (Auto) [place] # (Auto) Baso # (Auto) Seg Neutrophils % Seg Neuts % (Manual) Lymphocytes % (Manual) Nucleated RBC % Seg Neutrophils # Seg Neutrophils # Man Lymphocytes # (Manual) Monocytes # (Manual) Eosinophils # (Manual) PT INR APTT D-Dimer Heparin Anti-Xa Level ABG pH POC ABG pCO2 POC ABG pO2 ABG pO2 ABG HCO3 ABG O2 Saturation ABG Base Excess ABG Hemoglobin ABG Oxyhemoglobin ABG Sodium ABG Potassium ABG Chloride ABG Glucose Oxyhemoglobin Carboxyhemoglobin Sodium 132 L Potassium Chloride 88.5 L Carbon Dioxide 37 H BUN Creatinine 0.3 L Glucose 230 H POC Glucose 223 H Lactic Acid Calcium Phosphorus Magnesium Ferritin Total Bilirubin Direct Bilirubin AST ALT Alkaline Phosphatase Lactate Dehydrogenase C-Reactive Protein Total Protein Albumin Triglycerides Lipase Arterial Blood Glucose Arterial Blood Ionized Calcium Urine WBC (Auto) Coronavirus (PCR) SARS-CoV-2 IgG Ab Crossmatch 07/03/20 07/03/20 07/04/20 17:24 21:41 00:54 WBC RBC Hgb Hct MCV MCH MCHC RDW Lymph % (Auto) [place] % (Auto) Lymph # (Auto) [place] # (Auto) Baso # (Auto) Seg Neutrophils % Seg Neuts % (Manual) Lymphocytes % (Manual) Nucleated RBC % Seg Neutrophils # Seg Neutrophils # Man Lymphocytes # (Manual) Monocytes # (Manual) Eosinophils # (Manual) PT INR APTT D-Dimer Heparin Anti-Xa Level ABG pH POC ABG pCO2 POC ABG pO2 ABG pO2 ABG HCO3 ABG O2 Saturation ABG Base Excess ABG Hemoglobin ABG Oxyhemoglobin ABG Sodium ABG Potassium ABG Chloride ABG Glucose Oxyhemoglobin Carboxyhemoglobin Sodium Potassium Chloride Carbon Dioxide BUN Creatinine Glucose POC Glucose 163 H 220 H 195 H Lactic Acid Calcium Phosphorus Magnesium Ferritin Total Bilirubin Direct Bilirubin AST ALT Alkaline Phosphatase Lactate Dehydrogenase C-Reactive Protein Total Protein Albumin Triglycerides Lipase Arterial Blood Glucose Arterial Blood Ionized Calcium Urine WBC (Auto) Coronavirus (PCR) SARS-CoV-2 IgG Ab Crossmatch 07/04/20 07/04/20 07/04/20 03:25 04:00 04:00 WBC 14.9 H RBC 2.91 L Hgb 9.5 L Hct 29.2 L MCV 100 H MCH 33 H MCHC RDW 16.7 H Lymph % (Auto) 8.4 L [place] % (Auto) Lymph # (Auto) [place] # (Auto) 1.1 H Baso # (Auto) Seg Neutrophils % 84.2 H Seg Neuts % (Manual) Lymphocytes % (Manual) Nucleated RBC % Seg Neutrophils # 12.6 H Seg Neutrophils # Man Lymphocytes # (Manual) Monocytes # (Manual) Eosinophils # (Manual) PT INR APTT D-Dimer Heparin Anti-Xa Level ABG pH 7.474 H POC ABG pCO2 POC ABG pO2 51.8 L ABG pO2 ABG HCO3 ABG O2 Saturation ABG Base Excess ABG Hemoglobin ABG Oxyhemoglobin ABG Sodium ABG Potassium ABG Chloride ABG Glucose Oxyhemoglobin Carboxyhemoglobin Sodium Potassium 3.4 L Chloride 92.1 L Carbon Dioxide 34 H BUN Creatinine 0.3 L Glucose 173 H POC Glucose Lactic Acid Calcium Phosphorus Magnesium Ferritin Total Bilirubin Direct Bilirubin AST ALT Alkaline Phosphatase Lactate Dehydrogenase C-Reactive Protein Total Protein Albumin Triglycerides Lipase Arterial Blood Glucose Arterial Blood Ionized Calcium Urine WBC (Auto) Coronavirus (PCR) SARS-CoV-2 IgG Ab Crossmatch 07/04/20 07/04/20 07/04/20 06:18 11:39 17:18 WBC RBC Hgb Hct MCV MCH MCHC RDW Lymph % (Auto) [place] % (Auto) Lymph # (Auto) [place] # (Auto) Baso # (Auto) Seg Neutrophils % Seg Neuts % (Manual) Lymphocytes % (Manual) Nucleated RBC % Seg Neutrophils # Seg Neutrophils # Man Lymphocytes # (Manual) Monocytes # (Manual) Eosinophils # (Manual) PT INR APTT D-Dimer Heparin Anti-Xa Level ABG pH POC ABG pCO2 POC ABG pO2 ABG pO2 ABG HCO3 ABG O2 Saturation ABG Base Excess ABG Hemoglobin ABG Oxyhemoglobin ABG Sodium ABG Potassium ABG Chloride ABG Glucose Oxyhemoglobin Carboxyhemoglobin Sodium Potassium Chloride Carbon Dioxide BUN Creatinine Glucose POC Glucose 158 H 257 H 148 H Lactic Acid Calcium Phosphorus Magnesium Ferritin Total Bilirubin Direct Bilirubin AST ALT Alkaline Phosphatase Lactate Dehydrogenase C-Reactive Protein Total Protein Albumin Triglycerides Lipase Arterial Blood Glucose Arterial Blood Ionized Calcium Urine WBC (Auto) Coronavirus (PCR) SARS-CoV-2 IgG Ab Crossmatch 07/04/20 07/05/20 07/05/20 23:23 03:13 05:18 WBC 13.3 H RBC 2.90 L Hgb 9.8 L Hct 29.3 L MCV 101 H MCH 34 H MCHC RDW 17.0 H Lymph % (Auto) 11.1 L [place] % (Auto) Lymph # (Auto) [place] # (Auto) Baso # (Auto) Seg Neutrophils % 82.3 H Seg Neuts % (Manual) Lymphocytes % (Manual) Nucleated RBC % Seg Neutrophils # 10.9 H Seg Neutrophils # Man Lymphocytes # (Manual) Monocytes # (Manual) Eosinophils # (Manual) PT INR APTT D-Dimer Heparin Anti-Xa Level ABG pH 7.48 H POC ABG pCO2 52.0 H POC ABG pO2 ABG pO2 ABG HCO3 ABG O2 Saturation ABG Base Excess ABG Hemoglobin 10.0 L ABG Oxyhemoglobin ABG Sodium 131.0 L ABG Potassium 3.3 L ABG Chloride 93.0 L ABG Glucose 177 H Oxyhemoglobin Carboxyhemoglobin Sodium Potassium Chloride Carbon Dioxide BUN Creatinine Glucose POC Glucose 227 H Lactic Acid Calcium Phosphorus Magnesium Ferritin Total Bilirubin Direct Bilirubin AST ALT Alkaline Phosphatase Lactate Dehydrogenase C-Reactive Protein Total Protein Albumin Triglycerides Lipase Arterial Blood Glucose 177 H Arterial Blood Ionized Calcium Urine WBC (Auto) Coronavirus (PCR) SARS-CoV-2 IgG Ab Crossmatch 07/05/20 07/05/20 07/05/20 05:18 05:25 05:57 WBC RBC Hgb Hct MCV MCH MCHC RDW Lymph % (Auto) [place] % (Auto) Lymph # (Auto) [place] # (Auto) Baso # (Auto) Seg Neutrophils % Seg Neuts % (Manual) Lymphocytes % (Manual) Nucleated RBC % Seg Neutrophils # Seg Neutrophils # Man Lymphocytes # (Manual) Monocytes # (Manual) Eosinophils # (Manual) PT INR APTT D-Dimer Heparin Anti-Xa Level ABG pH 7.519 H POC ABG pCO2 POC ABG pO2 198.6 H ABG pO2 ABG HCO3 ABG O2 Saturation ABG Base Excess ABG Hemoglobin 10.3 L ABG Oxyhemoglobin 98.7 H ABG Sodium 133.6 L ABG Potassium 3.3 L ABG Chloride 93.0 L ABG Glucose 175 H Oxyhemoglobin Carboxyhemoglobin Sodium Potassium 3.4 L Chloride 92.5 L Carbon Dioxide 36 H BUN Creatinine 0.3 L Glucose 148 H POC Glucose 170 H Lactic Acid Calcium Phosphorus Magnesium Ferritin Total Bilirubin Direct Bilirubin AST ALT Alkaline Phosphatase Lactate Dehydrogenase C-Reactive Protein Total Protein Albumin Triglycerides Lipase Arterial Blood Glucose 175 H Arterial Blood Ionized Calcium Urine WBC (Auto) Coronavirus (PCR) SARS-CoV-2 IgG Ab Crossmatch 07/05/20 07/05/20 07/06/20 11:37 18:39 00:04 WBC RBC Hgb Hct MCV MCH MCHC RDW Lymph % (Auto) [place] % (Auto) Lymph # (Auto) [place] # (Auto) Baso # (Auto) Seg Neutrophils % Seg Neuts % (Manual) Lymphocytes % (Manual) Nucleated RBC % Seg Neutrophils # Seg Neutrophils # Man Lymphocytes # (Manual) Monocytes # (Manual) Eosinophils # (Manual) PT INR APTT D-Dimer Heparin Anti-Xa Level ABG pH POC ABG pCO2 POC ABG pO2 ABG pO2 ABG HCO3 ABG O2 Saturation ABG Base Excess ABG Hemoglobin ABG Oxyhemoglobin ABG Sodium ABG Potassium ABG Chloride ABG Glucose Oxyhemoglobin Carboxyhemoglobin Sodium Potassium Chloride Carbon Dioxide BUN Creatinine Glucose POC Glucose 195 H 200 H 222 H Lactic Acid Calcium Phosphorus Magnesium Ferritin Total Bilirubin Direct Bilirubin AST ALT Alkaline Phosphatase Lactate Dehydrogenase C-Reactive Protein Total Protein Albumin Triglycerides Lipase Arterial Blood Glucose Arterial Blood Ionized Calcium Urine WBC (Auto) Coronavirus (PCR) SARS-CoV-2 IgG Ab Crossmatch 07/06/20 07/06/20 07/06/20 05:25 06:52 06:52 WBC 15.8 H RBC 3.17 L Hgb 10.4 L Hct 31.5 L MCV 99 H MCH 33 H MCHC RDW 17.0 H Lymph % (Auto) [place] % (Auto) Lymph # (Auto) [place] # (Auto) Baso # (Auto) Seg Neutrophils % Seg Neuts % (Manual) Lymphocytes % (Manual) Nucleated RBC % Seg Neutrophils # Seg Neutrophils # Man Lymphocytes # (Manual) Monocytes # (Manual) Eosinophils # (Manual) PT INR APTT D-Dimer Heparin Anti-Xa Level ABG pH POC ABG pCO2 POC ABG pO2 ABG pO2 ABG HCO3 ABG O2 Saturation ABG Base Excess ABG Hemoglobin ABG Oxyhemoglobin ABG Sodium ABG Potassium ABG Chloride ABG Glucose Oxyhemoglobin Carboxyhemoglobin Sodium 135 L Potassium 3.4 L Chloride 91.9 L Carbon Dioxide 38 H BUN Creatinine 0.3 L Glucose 189 H POC Glucose 165 H Lactic Acid Calcium Phosphorus Magnesium Ferritin Total Bilirubin Direct Bilirubin AST ALT Alkaline Phosphatase Lactate Dehydrogenase C-Reactive Protein Total Protein Albumin Triglycerides Lipase Arterial Blood Glucose Arterial Blood Ionized Calcium Urine WBC (Auto) Coronavirus (PCR) SARS-CoV-2 IgG Ab Crossmatch 07/06/20 07/06/20 07/06/20 13:01 18:04 23:08 WBC RBC Hgb Hct MCV MCH MCHC RDW Lymph % (Auto) [place] % (Auto) Lymph # (Auto) [place] # (Auto) Baso # (Auto) Seg Neutrophils % Seg Neuts % (Manual) Lymphocytes % (Manual) Nucleated RBC % Seg Neutrophils # Seg Neutrophils # Man Lymphocytes # (Manual) Monocytes # (Manual) Eosinophils # (Manual) PT INR APTT D-Dimer Heparin Anti-Xa Level ABG pH POC ABG pCO2 POC ABG pO2 ABG pO2 ABG HCO3 ABG O2 Saturation ABG Base Excess ABG Hemoglobin ABG Oxyhemoglobin ABG Sodium ABG Potassium ABG Chloride ABG Glucose Oxyhemoglobin Carboxyhemoglobin Sodium Potassium Chloride Carbon Dioxide BUN Creatinine Glucose POC Glucose 195 H 169 H 173 H Lactic Acid Calcium Phosphorus Magnesium Ferritin Total Bilirubin Direct Bilirubin AST ALT Alkaline Phosphatase Lactate Dehydrogenase C-Reactive Protein Total Protein Albumin Triglycerides Lipase Arterial Blood Glucose Arterial Blood Ionized Calcium Urine WBC (Auto) Coronavirus (PCR) SARS-CoV-2 IgG Ab Crossmatch 07/07/20 07/07/20 07/07/20 05:35 05:35 05:39 WBC 17.6 H RBC 3.16 L Hgb 10.4 L Hct 31.5 L MCV 100 H MCH 33 H MCHC RDW 16.7 H Lymph % (Auto) 11.1 L [place] % (Auto) Lymph # (Auto) [place] # (Auto) 1.0 H Baso # (Auto) Seg Neutrophils % 83.0 H Seg Neuts % (Manual) Lymphocytes % (Manual) Nucleated RBC % Seg Neutrophils # 14.6 H Seg Neutrophils # Man Lymphocytes # (Manual) Monocytes # (Manual) Eosinophils # (Manual) PT INR APTT D-Dimer Heparin Anti-Xa Level ABG pH POC ABG pCO2 POC ABG pO2 ABG pO2 ABG HCO3 ABG O2 Saturation ABG Base Excess ABG Hemoglobin ABG Oxyhemoglobin ABG Sodium ABG Potassium ABG Chloride ABG Glucose Oxyhemoglobin Carboxyhemoglobin Sodium 135 L Potassium 3.4 L Chloride 94.3 L Carbon Dioxide 32 H BUN Creatinine 0.2 L Glucose 240 H POC Glucose 191 H Lactic Acid Calcium Phosphorus Magnesium Ferritin Total Bilirubin Direct Bilirubin AST ALT Alkaline Phosphatase Lactate Dehydrogenase C-Reactive Protein Total Protein Albumin Triglycerides Lipase Arterial Blood Glucose Arterial Blood Ionized Calcium Urine WBC (Auto) Coronavirus (PCR) SARS-CoV-2 IgG Ab Crossmatch 07/07/20 07/07/20 07/07/20 12:08 16:39 23:41 WBC RBC Hgb Hct MCV MCH MCHC RDW Lymph % (Auto) [place] % (Auto) Lymph # (Auto) [place] # (Auto) Baso # (Auto) Seg Neutrophils % Seg Neuts % (Manual) Lymphocytes % (Manual) Nucleated RBC % Seg Neutrophils # Seg Neutrophils # Man Lymphocytes # (Manual) Monocytes # (Manual) Eosinophils # (Manual) PT INR APTT D-Dimer Heparin Anti-Xa Level ABG pH POC ABG pCO2 POC ABG pO2 ABG pO2 ABG HCO3 ABG O2 Saturation ABG Base Excess ABG Hemoglobin ABG Oxyhemoglobin ABG Sodium ABG Potassium ABG Chloride ABG Glucose Oxyhemoglobin Carboxyhemoglobin Sodium Potassium Chloride Carbon Dioxide BUN Creatinine Glucose POC Glucose 248 H 209 H 231 H Lactic Acid Calcium Phosphorus Magnesium Ferritin Total Bilirubin Direct Bilirubin AST ALT Alkaline Phosphatase Lactate Dehydrogenase C-Reactive Protein Total Protein Albumin Triglycerides Lipase Arterial Blood Glucose Arterial Blood Ionized Calcium Urine WBC (Auto) Coronavirus (PCR) SARS-CoV-2 IgG Ab Crossmatch 07/08/20 07/08/20 07/08/20 04:58 04:58 05:38 WBC 21.0 H RBC 2.86 L Hgb 9.2 L Hct 28.6 L MCV 100 H MCH MCHC RDW 16.7 H Lymph % (Auto) [place] % (Auto) Lymph # (Auto) [place] # (Auto) Baso # (Auto) Seg Neutrophils % Seg Neuts % (Manual) 93.0 H Lymphocytes % (Manual) 3.0 L Nucleated RBC % Seg Neutrophils # Seg Neutrophils # Man 19.5 H Lymphocytes # (Manual) 0.6 L Monocytes # (Manual) Eosinophils # (Manual) PT INR APTT D-Dimer Heparin Anti-Xa Level ABG pH POC ABG pCO2 POC ABG pO2 ABG pO2 ABG HCO3 ABG O2 Saturation ABG Base Excess ABG Hemoglobin ABG Oxyhemoglobin ABG Sodium ABG Potassium ABG Chloride ABG Glucose Oxyhemoglobin Carboxyhemoglobin Sodium Potassium 3.0 L Chloride Carbon Dioxide BUN Creatinine 0.2 L Glucose 201 H POC Glucose 161 H Lactic Acid Calcium 7.9 L D Phosphorus Magnesium Ferritin Total Bilirubin Direct Bilirubin AST ALT Alkaline Phosphatase Lactate Dehydrogenase C-Reactive Protein Total Protein Albumin Triglycerides Lipase Arterial Blood Glucose Arterial Blood Ionized Calcium Urine WBC (Auto) Coronavirus (PCR) SARS-CoV-2 IgG Ab Crossmatch 07/08/20 07/08/20 07/08/20 12:19 16:26 Unknown WBC RBC Hgb Hct MCV MCH MCHC RDW Lymph % (Auto) [place] % (Auto) Lymph # (Auto) [place] # (Auto) Baso # (Auto) Seg Neutrophils % Seg Neuts % (Manual) Lymphocytes % (Manual) Nucleated RBC % Seg Neutrophils # Seg Neutrophils # Man Lymphocytes # (Manual) Monocytes # (Manual) Eosinophils # (Manual) PT INR APTT D-Dimer Heparin Anti-Xa Level ABG pH POC ABG pCO2 POC ABG pO2 ABG pO2 75.3 L ABG HCO3 34.3 H ABG O2 Saturation ABG Base Excess 8.7 H ABG Hemoglobin 10.2 L ABG Oxyhemoglobin ABG Sodium ABG Potassium ABG Chloride ABG Glucose Oxyhemoglobin 93.7 L Carboxyhemoglobin Sodium Potassium Chloride Carbon Dioxide BUN Creatinine Glucose POC Glucose 152 H 173 H Lactic Acid Calcium Phosphorus Magnesium Ferritin Total Bilirubin Direct Bilirubin AST ALT Alkaline Phosphatase Lactate Dehydrogenase C-Reactive Protein Total Protein Albumin Triglycerides Lipase Arterial Blood Glucose Arterial Blood Ionized Calcium Urine WBC (Auto) Coronavirus (PCR) SARS-CoV-2 IgG Ab Crossmatch 07/09/20 07/09/20 07/09/20 00:01 06:00 11:55 WBC RBC Hgb Hct MCV MCH MCHC RDW Lymph % (Auto) [place] % (Auto) Lymph # (Auto) [place] # (Auto) Baso # (Auto) Seg Neutrophils % Seg Neuts % (Manual) Lymphocytes % (Manual) Nucleated RBC % Seg Neutrophils # Seg Neutrophils # Man Lymphocytes # (Manual) Monocytes # (Manual) Eosinophils # (Manual) PT INR APTT D-Dimer Heparin Anti-Xa Level ABG pH POC ABG pCO2 POC ABG pO2 ABG pO2 ABG HCO3 ABG O2 Saturation ABG Base Excess ABG Hemoglobin ABG Oxyhemoglobin ABG Sodium ABG Potassium ABG Chloride ABG Glucose Oxyhemoglobin Carboxyhemoglobin Sodium Potassium Chloride Carbon Dioxide BUN Creatinine Glucose POC Glucose 207 H 141 H 228 H Lactic Acid Calcium Phosphorus Magnesium Ferritin Total Bilirubin Direct Bilirubin AST ALT Alkaline Phosphatase Lactate Dehydrogenase C-Reactive Protein Total Protein Albumin Triglycerides Lipase Arterial Blood Glucose Arterial Blood Ionized Calcium Urine WBC (Auto) Coronavirus (PCR) SARS-CoV-2 IgG Ab Crossmatch 07/09/20 07/09/20 07/09/20 16:47 23:53 Unknown WBC RBC Hgb Hct MCV MCH MCHC RDW Lymph % (Auto) [place] % (Auto) Lymph # (Auto) [place] # (Auto) Baso # (Auto) Seg Neutrophils % Seg Neuts % (Manual) Lymphocytes % (Manual) Nucleated RBC % Seg Neutrophils # Seg Neutrophils # Man Lymphocytes # (Manual) Monocytes # (Manual) Eosinophils # (Manual) PT INR APTT D-Dimer Heparin Anti-Xa Level ABG pH POC ABG pCO2 POC ABG pO2 ABG pO2 ABG HCO3 ABG O2 Saturation ABG Base Excess ABG Hemoglobin ABG Oxyhemoglobin ABG Sodium ABG Potassium ABG Chloride ABG Glucose Oxyhemoglobin Carboxyhemoglobin Sodium 132 L Potassium Chloride 92.7 L Carbon Dioxide 35 H BUN Creatinine 0.2 L Glucose 234 H POC Glucose 136 H 219 H Lactic Acid Calcium Phosphorus Magnesium Ferritin Total Bilirubin Direct Bilirubin AST ALT Alkaline Phosphatase Lactate Dehydrogenase C-Reactive Protein Total Protein Albumin Triglycerides Lipase Arterial Blood Glucose Arterial Blood Ionized Calcium Urine WBC (Auto) Coronavirus (PCR) SARS-CoV-2 IgG Ab Crossmatch 07/10/20 07/10/20 07/10/20 05:20 12:05 18:38 WBC RBC Hgb Hct MCV MCH MCHC RDW Lymph % (Auto) [place] % (Auto) Lymph # (Auto) [place] # (Auto) Baso # (Auto) Seg Neutrophils % Seg Neuts % (Manual) Lymphocytes % (Manual) Nucleated RBC % Seg Neutrophils # Seg Neutrophils # Man Lymphocytes # (Manual) Monocytes # (Manual) Eosinophils # (Manual) PT INR APTT D-Dimer Heparin Anti-Xa Level ABG pH POC ABG pCO2 POC ABG pO2 ABG pO2 ABG HCO3 ABG O2 Saturation ABG Base Excess ABG Hemoglobin ABG Oxyhemoglobin ABG Sodium ABG Potassium ABG Chloride ABG Glucose Oxyhemoglobin Carboxyhemoglobin Sodium Potassium Chloride Carbon Dioxide BUN Creatinine Glucose POC Glucose 221 H 174 H 152 H Lactic Acid Calcium Phosphorus Magnesium Ferritin Total Bilirubin Direct Bilirubin AST ALT Alkaline Phosphatase Lactate Dehydrogenase C-Reactive Protein Total Protein Albumin Triglycerides Lipase Arterial Blood Glucose Arterial Blood Ionized Calcium Urine WBC (Auto) Coronavirus (PCR) SARS-CoV-2 IgG Ab Crossmatch 07/11/20 07/11/20 07/11/20 00:16 05:42 08:13 WBC 11.9 H RBC 3.13 L Hgb 10.2 L Hct 31.2 L MCV 100 H MCH 33 H MCHC RDW 16.4 H Lymph % (Auto) [place] % (Auto) 9.3 H Lymph # (Auto) [place] # (Auto) 1.1 H Baso # (Auto) Seg Neutrophils % 72.7 H Seg Neuts % (Manual) Lymphocytes % (Manual) Nucleated RBC % Seg Neutrophils # 8.7 H Seg Neutrophils # Man Lymphocytes # (Manual) Monocytes # (Manual) Eosinophils # (Manual) PT INR APTT D-Dimer Heparin Anti-Xa Level ABG pH POC ABG pCO2 POC ABG pO2 ABG pO2 ABG HCO3 ABG O2 Saturation ABG Base Excess ABG Hemoglobin ABG Oxyhemoglobin ABG Sodium ABG Potassium ABG Chloride ABG Glucose Oxyhemoglobin Carboxyhemoglobin Sodium Potassium Chloride Carbon Dioxide BUN Creatinine Glucose POC Glucose 170 H 186 H Lactic Acid Calcium Phosphorus Magnesium Ferritin Total Bilirubin Direct Bilirubin AST ALT Alkaline Phosphatase Lactate Dehydrogenase C-Reactive Protein Total Protein Albumin Triglycerides Lipase Arterial Blood Glucose Arterial Blood Ionized Calcium Urine WBC (Auto) Coronavirus (PCR) SARS-CoV-2 IgG Ab Crossmatch 07/11/20 07/11/20 07/11/20 08:13 11:35 18:07 WBC RBC Hgb Hct MCV MCH MCHC RDW Lymph % (Auto) [place] % (Auto) Lymph # (Auto) [place] # (Auto) Baso # (Auto) Seg Neutrophils % Seg Neuts % (Manual) Lymphocytes % (Manual) Nucleated RBC % Seg Neutrophils # Seg Neutrophils # Man Lymphocytes # (Manual) Monocytes # (Manual) Eosinophils # (Manual) PT INR APTT D-Dimer Heparin Anti-Xa Level ABG pH POC ABG pCO2 POC ABG pO2 ABG pO2 ABG HCO3 ABG O2 Saturation ABG Base Excess ABG Hemoglobin ABG Oxyhemoglobin ABG Sodium ABG Potassium ABG Chloride ABG Glucose Oxyhemoglobin Carboxyhemoglobin Sodium 135 L Potassium Chloride 92.8 L Carbon Dioxide 38 H BUN Creatinine 0.2 L Glucose 132 H POC Glucose 129 H 156 H Lactic Acid Calcium Phosphorus Magnesium Ferritin Total Bilirubin Direct Bilirubin AST ALT Alkaline Phosphatase Lactate Dehydrogenase C-Reactive Protein Total Protein Albumin Triglycerides Lipase Arterial Blood Glucose Arterial Blood Ionized Calcium Urine WBC (Auto) Coronavirus (PCR) SARS-CoV-2 IgG Ab Crossmatch 07/11/20 07/11/20 07/12/20 18:36 23:18 05:28 WBC RBC Hgb Hct MCV MCH MCHC RDW Lymph % (Auto) [place] % (Auto) Lymph # (Auto) [place] # (Auto) Baso # (Auto) Seg Neutrophils % Seg Neuts % (Manual) Lymphocytes % (Manual) Nucleated RBC % Seg Neutrophils # Seg Neutrophils # Man Lymphocytes # (Manual) Monocytes # (Manual) Eosinophils # (Manual) PT INR APTT D-Dimer Heparin Anti-Xa Level ABG pH POC ABG pCO2 POC ABG pO2 70.9 L ABG pO2 ABG HCO3 ABG O2 Saturation ABG Base Excess ABG Hemoglobin 10.8 L ABG Oxyhemoglobin 92.5 L ABG Sodium 131.8 L ABG Potassium 3.2 L ABG Chloride 91.0 L ABG Glucose 181 H Oxyhemoglobin Carboxyhemoglobin Sodium Potassium Chloride Carbon Dioxide BUN Creatinine Glucose POC Glucose 189 H 190 H Lactic Acid Calcium Phosphorus Magnesium Ferritin Total Bilirubin Direct Bilirubin AST ALT Alkaline Phosphatase Lactate Dehydrogenase C-Reactive Protein Total Protein Albumin Triglycerides Lipase Arterial Blood Glucose 181 H Arterial Blood Ionized Calcium Urine WBC (Auto) Coronavirus (PCR) SARS-CoV-2 IgG Ab Crossmatch 07/12/20 07/12/20 07/12/20 11:33 17:45 23:59 WBC RBC Hgb Hct MCV MCH MCHC RDW Lymph % (Auto) [place] % (Auto) Lymph # (Auto) [place] # (Auto) Baso # (Auto) Seg Neutrophils % Seg Neuts % (Manual) Lymphocytes % (Manual) Nucleated RBC % Seg Neutrophils # Seg Neutrophils # Man Lymphocytes # (Manual) Monocytes # (Manual) Eosinophils # (Manual) PT INR APTT D-Dimer Heparin Anti-Xa Level ABG pH POC ABG pCO2 POC ABG pO2 ABG pO2 ABG HCO3 ABG O2 Saturation ABG Base Excess ABG Hemoglobin ABG Oxyhemoglobin ABG Sodium ABG Potassium ABG Chloride ABG Glucose Oxyhemoglobin Carboxyhemoglobin Sodium Potassium Chloride Carbon Dioxide BUN Creatinine Glucose POC Glucose 151 H 211 H 169 H Lactic Acid Calcium Phosphorus Magnesium Ferritin Total Bilirubin Direct Bilirubin AST ALT Alkaline Phosphatase Lactate Dehydrogenase C-Reactive Protein Total Protein Albumin Triglycerides Lipase Arterial Blood Glucose Arterial Blood Ionized Calcium Urine WBC (Auto) Coronavirus (PCR) SARS-CoV-2 IgG Ab Crossmatch 07/13/20 07/13/20 07/13/20 05:44 08:31 08:31 WBC 21.3 H RBC 2.92 L Hgb 9.7 L Hct 28.7 L MCV 98 H MCH 33 H MCHC RDW 16.8 H Lymph % (Auto) [place] % (Auto) Lymph # (Auto) [place] # (Auto) Baso # (Auto) Seg Neutrophils % Seg Neuts % (Manual) 96.0 H Lymphocytes % (Manual) 2.0 L Nucleated RBC % Seg Neutrophils # Seg Neutrophils # Man 20.4 H Lymphocytes # (Manual) 0.4 L Monocytes # (Manual) Eosinophils # (Manual) PT INR APTT D-Dimer Heparin Anti-Xa Level ABG pH POC ABG pCO2 POC ABG pO2 ABG pO2 ABG HCO3 ABG O2 Saturation ABG Base Excess ABG Hemoglobin ABG Oxyhemoglobin ABG Sodium ABG Potassium ABG Chloride ABG Glucose Oxyhemoglobin Carboxyhemoglobin Sodium Potassium 2.9 L* D Chloride 94.4 L Carbon Dioxide 37 H BUN Creatinine 0.2 L Glucose 166 H POC Glucose 122 H Lactic Acid Calcium Phosphorus Magnesium Ferritin Total Bilirubin Direct Bilirubin AST ALT Alkaline Phosphatase Lactate Dehydrogenase C-Reactive Protein Total Protein Albumin Triglycerides Lipase Arterial Blood Glucose Arterial Blood Ionized Calcium Urine WBC (Auto) Coronavirus (PCR) SARS-CoV-2 IgG Ab Crossmatch 07/13/20 07/13/20 07/13/20 11:54 13:52 17:40 WBC RBC Hgb Hct MCV MCH MCHC RDW Lymph % (Auto) [place] % (Auto) Lymph # (Auto) [place] # (Auto) Baso # (Auto) Seg Neutrophils % Seg Neuts % (Manual) Lymphocytes % (Manual) Nucleated RBC % Seg Neutrophils # Seg Neutrophils # Man Lymphocytes # (Manual) Monocytes # (Manual) Eosinophils # (Manual) PT INR APTT D-Dimer Heparin Anti-Xa Level ABG pH 7.477 H POC ABG pCO2 54.4 H POC ABG pO2 126.8 H ABG pO2 ABG HCO3 ABG O2 Saturation ABG Base Excess ABG Hemoglobin 11.5 L ABG Oxyhemoglobin ABG Sodium ABG Potassium 3.2 L ABG Chloride 92.0 L ABG Glucose 169 H Oxyhemoglobin Carboxyhemoglobin Sodium Potassium Chloride Carbon Dioxide BUN Creatinine Glucose POC Glucose 132 H 128 H Lactic Acid Calcium Phosphorus Magnesium Ferritin Total Bilirubin Direct Bilirubin AST ALT Alkaline Phosphatase Lactate Dehydrogenase C-Reactive Protein Total Protein Albumin Triglycerides Lipase Arterial Blood Glucose 169 H Arterial Blood Ionized Calcium Urine WBC (Auto) Coronavirus (PCR) SARS-CoV-2 IgG Ab Crossmatch 07/14/20 07/14/20 07/15/20 07:49 17:09 05:27 WBC RBC Hgb Hct MCV MCH MCHC RDW Lymph % (Auto) [place] % (Auto) Lymph # (Auto) [place] # (Auto) Baso # (Auto) Seg Neutrophils % Seg Neuts % (Manual) Lymphocytes % (Manual) Nucleated RBC % Seg Neutrophils # Seg Neutrophils # Man Lymphocytes # (Manual) Monocytes # (Manual) Eosinophils # (Manual) PT INR APTT D-Dimer Heparin Anti-Xa Level ABG pH POC ABG pCO2 POC ABG pO2 ABG pO2 ABG HCO3 ABG O2 Saturation ABG Base Excess ABG Hemoglobin ABG Oxyhemoglobin ABG Sodium ABG Potassium ABG Chloride ABG Glucose Oxyhemoglobin Carboxyhemoglobin Sodium Potassium 2.7 L* Chloride 94.0 L Carbon Dioxide 37 H BUN Creatinine 0.3 L Glucose 110 H POC Glucose 152 H 61 L Lactic Acid Calcium Phosphorus Magnesium Ferritin Total Bilirubin Direct Bilirubin AST ALT Alkaline Phosphatase Lactate Dehydrogenase C-Reactive Protein Total Protein Albumin Triglycerides Lipase Arterial Blood Glucose Arterial Blood Ionized Calcium Urine WBC (Auto) Coronavirus (PCR) SARS-CoV-2 IgG Ab Crossmatch 07/15/20 07/15/20 07/15/20 05:31 11:49 17:18 WBC RBC Hgb Hct MCV MCH MCHC RDW Lymph % (Auto) [place] % (Auto) Lymph # (Auto) [place] # (Auto) Baso # (Auto) Seg Neutrophils % Seg Neuts % (Manual) Lymphocytes % (Manual) Nucleated RBC % Seg Neutrophils # Seg Neutrophils # Man Lymphocytes # (Manual) Monocytes # (Manual) Eosinophils # (Manual) PT INR APTT D-Dimer Heparin Anti-Xa Level ABG pH POC ABG pCO2 POC ABG pO2 ABG pO2 ABG HCO3 ABG O2 Saturation ABG Base Excess ABG Hemoglobin ABG Oxyhemoglobin ABG Sodium ABG Potassium ABG Chloride ABG Glucose Oxyhemoglobin Carboxyhemoglobin Sodium Potassium 3.2 L Chloride 91.2 L Carbon Dioxide 33 H BUN Creatinine 0.3 L Glucose 139 H POC Glucose 148 H 196 H Lactic Acid Calcium Phosphorus Magnesium Ferritin Total Bilirubin Direct Bilirubin AST ALT Alkaline Phosphatase Lactate Dehydrogenase C-Reactive Protein Total Protein Albumin Triglycerides Lipase Arterial Blood Glucose Arterial Blood Ionized Calcium Urine WBC (Auto) Coronavirus (PCR) SARS-CoV-2 IgG Ab Crossmatch 07/15/20 07/16/20 07/16/20 23:08 05:18 05:19 WBC 11.3 H RBC 3.10 L Hgb 10.0 L Hct 30.3 L MCV 98 H MCH MCHC RDW 16.3 H Lymph % (Auto) [place] % (Auto) Lymph # (Auto) [place] # (Auto) Baso # (Auto) Seg Neutrophils % Seg Neuts % (Manual) Lymphocytes % (Manual) Nucleated RBC % Seg Neutrophils # Seg Neutrophils # Man Lymphocytes # (Manual) Monocytes # (Manual) Eosinophils # (Manual) PT INR APTT D-Dimer Heparin Anti-Xa Level ABG pH POC ABG pCO2 POC ABG pO2 ABG pO2 ABG HCO3 ABG O2 Saturation ABG Base Excess ABG Hemoglobin ABG Oxyhemoglobin ABG Sodium ABG Potassium ABG Chloride ABG Glucose Oxyhemoglobin Carboxyhemoglobin Sodium Potassium Chloride Carbon Dioxide BUN Creatinine Glucose POC Glucose 131 H 160 H Lactic Acid Calcium Phosphorus Magnesium Ferritin Total Bilirubin Direct Bilirubin AST ALT Alkaline Phosphatase Lactate Dehydrogenase C-Reactive Protein Total Protein Albumin Triglycerides Lipase Arterial Blood Glucose Arterial Blood Ionized Calcium Urine WBC (Auto) Coronavirus (PCR) SARS-CoV-2 IgG Ab Crossmatch 07/16/20 07/16/20 07/16/20 05:19 11:45 17:17 WBC RBC Hgb Hct MCV MCH MCHC RDW Lymph % (Auto) [place] % (Auto) Lymph # (Auto) [place] # (Auto) Baso # (Auto) Seg Neutrophils % Seg Neuts % (Manual) Lymphocytes % (Manual) Nucleated RBC % Seg Neutrophils # Seg Neutrophils # Man Lymphocytes # (Manual) Monocytes # (Manual) Eosinophils # (Manual) PT INR APTT D-Dimer Heparin Anti-Xa Level ABG pH POC ABG pCO2 POC ABG pO2 ABG pO2 ABG HCO3 ABG O2 Saturation ABG Base Excess ABG Hemoglobin ABG Oxyhemoglobin ABG Sodium ABG Potassium ABG Chloride ABG Glucose Oxyhemoglobin Carboxyhemoglobin Sodium 132 L Potassium 3.4 L Chloride 89.9 L Carbon Dioxide 39 H BUN Creatinine 0.3 L Glucose 174 H POC Glucose 169 H 143 H Lactic Acid Calcium Phosphorus Magnesium Ferritin Total Bilirubin Direct Bilirubin AST ALT Alkaline Phosphatase Lactate Dehydrogenase C-Reactive Protein Total Protein Albumin Triglycerides Lipase Arterial Blood Glucose Arterial Blood Ionized Calcium Urine WBC (Auto) Coronavirus (PCR) SARS-CoV-2 IgG Ab Crossmatch 07/16/20 07/17/20 07/17/20 23:54 05:32 11:26 WBC RBC Hgb Hct MCV MCH MCHC RDW Lymph % (Auto) [place] % (Auto) Lymph # (Auto) [place] # (Auto) Baso # (Auto) Seg Neutrophils % Seg Neuts % (Manual) Lymphocytes % (Manual) Nucleated RBC % Seg Neutrophils # Seg Neutrophils # Man Lymphocytes # (Manual) Monocytes # (Manual) Eosinophils # (Manual) PT INR APTT D-Dimer Heparin Anti-Xa Level ABG pH POC ABG pCO2 POC ABG pO2 ABG pO2 ABG HCO3 ABG O2 Saturation ABG Base Excess ABG Hemoglobin ABG Oxyhemoglobin ABG Sodium ABG Potassium ABG Chloride ABG Glucose Oxyhemoglobin Carboxyhemoglobin Sodium Potassium Chloride Carbon Dioxide BUN Creatinine Glucose POC Glucose 147 H 149 H 211 H Lactic Acid Calcium Phosphorus Magnesium Ferritin Total Bilirubin Direct Bilirubin AST ALT Alkaline Phosphatase Lactate Dehydrogenase C-Reactive Protein Total Protein Albumin Triglycerides Lipase Arterial Blood Glucose Arterial Blood Ionized Calcium Urine WBC (Auto) Coronavirus (PCR) SARS-CoV-2 IgG Ab Crossmatch 01/09/21 01/09/21 01/10/21 18:16 23:12 06:15 WBC RBC Hgb Hct MCV MCH MCHC RDW Lymph % (Auto) [place] % (Auto) Lymph # (Auto) [place] # (Auto) Baso # (Auto) Seg Neutrophils % Seg Neuts % (Manual) Lymphocytes % (Manual) Nucleated RBC % Seg Neutrophils # Seg Neutrophils # Man Lymphocytes # (Manual) Monocytes # (Manual) Eosinophils # (Manual) PT INR APTT D-Dimer Heparin Anti-Xa Level ABG pH POC ABG pCO2 POC ABG pO2 ABG pO2 ABG HCO3 ABG O2 Saturation ABG Base Excess ABG Hemoglobin ABG Oxyhemoglobin ABG Sodium ABG Potassium ABG Chloride ABG Glucose Oxyhemoglobin Carboxyhemoglobin Sodium Potassium Chloride Carbon Dioxide BUN Creatinine Glucose POC Glucose 161 H 136 H 108 H Lactic Acid Calcium Phosphorus Magnesium Ferritin Total Bilirubin Direct Bilirubin AST ALT Alkaline Phosphatase Lactate Dehydrogenase C-Reactive Protein Total Protein Albumin Triglycerides Lipase Arterial Blood Glucose Arterial Blood Ionized Calcium Urine WBC (Auto) Coronavirus (PCR) SARS-CoV-2 IgG Ab Crossmatch 07/18/20 07/18/20 07/18/20 08:47 08:47 11:50 WBC 17.7 H RBC 3.29 L Hgb 10.5 L Hct 31.8 L MCV 97 H MCH MCHC RDW 16.9 H Lymph % (Auto) [place] % (Auto) 8.6 H Lymph # (Auto) [place] # (Auto) 1.5 H Baso # (Auto) Seg Neutrophils % 74.6 H Seg Neuts % (Manual) Lymphocytes % (Manual) Nucleated RBC % Seg Neutrophils # 13.2 H Seg Neutrophils # Man Lymphocytes # (Manual) Monocytes # (Manual) Eosinophils # (Manual) PT INR APTT D-Dimer Heparin Anti-Xa Level ABG pH POC ABG pCO2 POC ABG pO2 ABG pO2 ABG HCO3 ABG O2 Saturation ABG Base Excess ABG Hemoglobin ABG Oxyhemoglobin ABG Sodium ABG Potassium ABG Chloride ABG Glucose Oxyhemoglobin Carboxyhemoglobin Sodium Potassium 2.8 L* Chloride 92.6 L Carbon Dioxide 40 H BUN Creatinine 0.3 L Glucose 177 H POC Glucose 178 H Lactic Acid Calcium Phosphorus Magnesium Ferritin Total Bilirubin Direct Bilirubin AST ALT Alkaline Phosphatase Lactate Dehydrogenase C-Reactive Protein Total Protein Albumin Triglycerides Lipase Arterial Blood Glucose Arterial Blood Ionized Calcium Urine WBC (Auto) Coronavirus (PCR) SARS-CoV-2 IgG Ab Crossmatch 07/18/20 07/18/20 07/19/20 17:18 23:33 05:22 WBC RBC Hgb Hct MCV MCH MCHC RDW Lymph % (Auto) [place] % (Auto) Lymph # (Auto) [place] # (Auto) Baso # (Auto) Seg Neutrophils % Seg Neuts % (Manual) Lymphocytes % (Manual) Nucleated RBC % Seg Neutrophils # Seg Neutrophils # Man Lymphocytes # (Manual) Monocytes # (Manual) Eosinophils # (Manual) PT INR APTT D-Dimer Heparin Anti-Xa Level ABG pH POC ABG pCO2 POC ABG pO2 ABG pO2 ABG HCO3 ABG O2 Saturation ABG Base Excess ABG Hemoglobin ABG Oxyhemoglobin ABG Sodium ABG Potassium ABG Chloride ABG Glucose Oxyhemoglobin Carboxyhemoglobin Sodium Potassium Chloride Carbon Dioxide BUN Creatinine Glucose POC Glucose 171 H 162 H 166 H Lactic Acid Calcium Phosphorus Magnesium Ferritin Total Bilirubin Direct Bilirubin AST ALT Alkaline Phosphatase Lactate Dehydrogenase C-Reactive Protein Total Protein Albumin Triglycerides Lipase Arterial Blood Glucose Arterial Blood Ionized Calcium Urine WBC (Auto) Coronavirus (PCR) SARS-CoV-2 IgG Ab Crossmatch 07/19/20 07/19/20 07/19/20 12:00 16:27 23:41 WBC RBC Hgb Hct MCV MCH MCHC RDW Lymph % (Auto) [place] % (Auto) Lymph # (Auto) [place] # (Auto) Baso # (Auto) Seg Neutrophils % Seg Neuts % (Manual) Lymphocytes % (Manual) Nucleated RBC % Seg Neutrophils # Seg Neutrophils # Man Lymphocytes # (Manual) Monocytes # (Manual) Eosinophils # (Manual) PT INR APTT D-Dimer Heparin Anti-Xa Level ABG pH POC ABG pCO2 POC ABG pO2 ABG pO2 ABG HCO3 ABG O2 Saturation ABG Base Excess ABG Hemoglobin ABG Oxyhemoglobin ABG Sodium ABG Potassium ABG Chloride ABG Glucose Oxyhemoglobin Carboxyhemoglobin Sodium Potassium Chloride Carbon Dioxide BUN Creatinine Glucose POC Glucose 201 H 205 H 106 H Lactic Acid Calcium Phosphorus Magnesium Ferritin Total Bilirubin Direct Bilirubin AST ALT Alkaline Phosphatase Lactate Dehydrogenase C-Reactive Protein Total Protein Albumin Triglycerides Lipase Arterial Blood Glucose Arterial Blood Ionized Calcium Urine WBC (Auto) Coronavirus (PCR) SARS-CoV-2 IgG Ab Crossmatch 07/20/20 07/20/20 07/20/20 05:28 11:18 17:30 WBC RBC Hgb Hct MCV MCH MCHC RDW Lymph % (Auto) [place] % (Auto) Lymph # (Auto) [place] # (Auto) Baso # (Auto) Seg Neutrophils % Seg Neuts % (Manual) Lymphocytes % (Manual) Nucleated RBC % Seg Neutrophils # Seg Neutrophils # Man Lymphocytes # (Manual) Monocytes # (Manual) Eosinophils # (Manual) PT INR APTT D-Dimer Heparin Anti-Xa Level ABG pH POC ABG pCO2 POC ABG pO2 ABG pO2 ABG HCO3 ABG O2 Saturation ABG Base Excess ABG Hemoglobin ABG Oxyhemoglobin ABG Sodium ABG Potassium ABG Chloride ABG Glucose Oxyhemoglobin Carboxyhemoglobin Sodium Potassium Chloride Carbon Dioxide BUN Creatinine Glucose POC Glucose 130 H 195 H 141 H Lactic Acid Calcium Phosphorus Magnesium Ferritin Total Bilirubin Direct Bilirubin AST ALT Alkaline Phosphatase Lactate Dehydrogenase C-Reactive Protein Total Protein Albumin Triglycerides Lipase Arterial Blood Glucose Arterial Blood Ionized Calcium Urine WBC (Auto) Coronavirus (PCR) SARS-CoV-2 IgG Ab Crossmatch 07/20/20 07/21/20 07/21/20 23:26 05:03 17:03 WBC RBC Hgb Hct MCV MCH MCHC RDW Lymph % (Auto) [place] % (Auto) Lymph # (Auto) [place] # (Auto) Baso # (Auto) Seg Neutrophils % Seg Neuts % (Manual) Lymphocytes % (Manual) Nucleated RBC % Seg Neutrophils # Seg Neutrophils # Man Lymphocytes # (Manual) Monocytes # (Manual) Eosinophils # (Manual) PT INR APTT D-Dimer Heparin Anti-Xa Level ABG pH POC ABG pCO2 POC ABG pO2 ABG pO2 ABG HCO3 ABG O2 Saturation ABG Base Excess ABG Hemoglobin ABG Oxyhemoglobin ABG Sodium ABG Potassium ABG Chloride ABG Glucose Oxyhemoglobin Carboxyhemoglobin Sodium Potassium Chloride Carbon Dioxide BUN Creatinine Glucose POC Glucose 116 H 142 H 181 H Lactic Acid Calcium Phosphorus Magnesium Ferritin Total Bilirubin Direct Bilirubin AST ALT Alkaline Phosphatase Lactate Dehydrogenase C-Reactive Protein Total Protein Albumin Triglycerides Lipase Arterial Blood Glucose Arterial Blood Ionized Calcium Urine WBC (Auto) Coronavirus (PCR) SARS-CoV-2 IgG Ab Crossmatch 07/21/20 07/22/20 07/22/20 23:51 06:09 11:40 WBC RBC Hgb Hct MCV MCH MCHC RDW Lymph % (Auto) [place] % (Auto) Lymph # (Auto) [place] # (Auto) Baso # (Auto) Seg Neutrophils % Seg Neuts % (Manual) Lymphocytes % (Manual) Nucleated RBC % Seg Neutrophils # Seg Neutrophils # Man Lymphocytes # (Manual) Monocytes # (Manual) Eosinophils # (Manual) PT INR APTT D-Dimer Heparin Anti-Xa Level ABG pH POC ABG pCO2 POC ABG pO2 ABG pO2 ABG HCO3 ABG O2 Saturation ABG Base Excess ABG Hemoglobin ABG Oxyhemoglobin ABG Sodium ABG Potassium ABG Chloride ABG Glucose Oxyhemoglobin Carboxyhemoglobin Sodium Potassium Chloride Carbon Dioxide BUN Creatinine Glucose POC Glucose 127 H 136 H 160 H Lactic Acid Calcium Phosphorus Magnesium Ferritin Total Bilirubin Direct Bilirubin AST ALT Alkaline Phosphatase Lactate Dehydrogenase C-Reactive Protein Total Protein Albumin Triglycerides Lipase Arterial Blood Glucose Arterial Blood Ionized Calcium Urine WBC (Auto) Coronavirus (PCR) SARS-CoV-2 IgG Ab Crossmatch 07/22/20 07/22/20 07/23/20 18:14 23:25 05:58 WBC 12.2 H RBC 3.44 L Hgb 10.9 L Hct 33.9 L MCV 99 H MCH MCHC RDW 16.9 H Lymph % (Auto) [place] % (Auto) 10.0 H Lymph # (Auto) [place] # (Auto) 1.2 H Baso # (Auto) Seg Neutrophils % Seg Neuts % (Manual) Lymphocytes % (Manual) Nucleated RBC % Seg Neutrophils # 8.3 H Seg Neutrophils # Man Lymphocytes # (Manual) Monocytes # (Manual) Eosinophils # (Manual) PT INR APTT D-Dimer Heparin Anti-Xa Level ABG pH POC ABG pCO2 POC ABG pO2 ABG pO2 ABG HCO3 ABG O2 Saturation ABG Base Excess ABG Hemoglobin ABG Oxyhemoglobin ABG Sodium ABG Potassium ABG Chloride ABG Glucose Oxyhemoglobin Carboxyhemoglobin Sodium Potassium Chloride Carbon Dioxide BUN Creatinine Glucose POC Glucose 189 H 164 H Lactic Acid Calcium Phosphorus Magnesium Ferritin Total Bilirubin Direct Bilirubin AST ALT Alkaline Phosphatase Lactate Dehydrogenase C-Reactive Protein Total Protein Albumin Triglycerides Lipase Arterial Blood Glucose Arterial Blood Ionized Calcium Urine WBC (Auto) Coronavirus (PCR) SARS-CoV-2 IgG Ab Crossmatch 07/23/20 07/23/20 07/23/20 05:58 06:02 12:14 WBC RBC Hgb Hct MCV MCH MCHC RDW Lymph % (Auto) [place] % (Auto) Lymph # (Auto) [place] # (Auto) Baso # (Auto) Seg Neutrophils % Seg Neuts % (Manual) Lymphocytes % (Manual) Nucleated RBC % Seg Neutrophils # Seg Neutrophils # Man Lymphocytes # (Manual) Monocytes # (Manual) Eosinophils # (Manual) PT INR APTT D-Dimer Heparin Anti-Xa Level ABG pH POC ABG pCO2 POC ABG pO2 ABG pO2 ABG HCO3 ABG O2 Saturation ABG Base Excess ABG Hemoglobin ABG Oxyhemoglobin ABG Sodium ABG Potassium ABG Chloride ABG Glucose Oxyhemoglobin Carboxyhemoglobin Sodium Potassium 2.9 L* Chloride 94.9 L Carbon Dioxide 33 H D BUN Creatinine 0.4 L Glucose 129 H POC Glucose 111 H 142 H Lactic Acid Calcium Phosphorus Magnesium Ferritin Total Bilirubin Direct Bilirubin AST ALT Alkaline Phosphatase Lactate Dehydrogenase C-Reactive Protein Total Protein Albumin 3.5 L Triglycerides Lipase Arterial Blood Glucose Arterial Blood Ionized Calcium Urine WBC (Auto) Coronavirus (PCR) SARS-CoV-2 IgG Ab Crossmatch 07/23/20 07/23/20 07/24/20 17:20 23:39 05:05 WBC 13.3 H RBC 3.40 L Hgb 10.8 L Hct 33.4 L MCV 98 H MCH MCHC RDW 16.7 H Lymph % (Auto) [place] % (Auto) 10.0 H Lymph # (Auto) [place] # (Auto) 1.3 H Baso # (Auto) Seg Neutrophils % Seg Neuts % (Manual) Lymphocytes % (Manual) Nucleated RBC % Seg Neutrophils # 9.0 H Seg Neutrophils # Man Lymphocytes # (Manual) Monocytes # (Manual) Eosinophils # (Manual) PT INR APTT D-Dimer Heparin Anti-Xa Level ABG pH POC ABG pCO2 POC ABG pO2 ABG pO2 ABG HCO3 ABG O2 Saturation ABG Base Excess ABG Hemoglobin ABG Oxyhemoglobin ABG Sodium ABG Potassium ABG Chloride ABG Glucose Oxyhemoglobin Carboxyhemoglobin Sodium Potassium Chloride Carbon Dioxide BUN Creatinine Glucose POC Glucose 150 H 120 H Lactic Acid Calcium Phosphorus Magnesium Ferritin Total Bilirubin Direct Bilirubin AST ALT Alkaline Phosphatase Lactate Dehydrogenase C-Reactive Protein Total Protein Albumin Triglycerides Lipase Arterial Blood Glucose Arterial Blood Ionized Calcium Urine WBC (Auto) Coronavirus (PCR) SARS-CoV-2 IgG Ab Crossmatch 07/24/20 07/24/20 07/24/20 05:05 05:39 11:30 WBC RBC Hgb Hct MCV MCH MCHC RDW Lymph % (Auto) [place] % (Auto) Lymph # (Auto) [place] # (Auto) Baso # (Auto) Seg Neutrophils % Seg Neuts % (Manual) Lymphocytes % (Manual) Nucleated RBC % Seg Neutrophils # Seg Neutrophils # Man Lymphocytes # (Manual) Monocytes # (Manual) Eosinophils # (Manual) PT INR APTT D-Dimer Heparin Anti-Xa Level ABG pH POC ABG pCO2 POC ABG pO2 ABG pO2 ABG HCO3 ABG O2 Saturation ABG Base Excess ABG Hemoglobin ABG Oxyhemoglobin ABG Sodium ABG Potassium ABG Chloride ABG Glucose Oxyhemoglobin Carboxyhemoglobin Sodium Potassium Chloride 97.4 L Carbon Dioxide BUN Creatinine 0.3 L Glucose 111 H POC Glucose 118 H 160 H Lactic Acid Calcium Phosphorus Magnesium Ferritin Total Bilirubin Direct Bilirubin AST ALT Alkaline Phosphatase Lactate Dehydrogenase C-Reactive Protein Total Protein Albumin Triglycerides Lipase Arterial Blood Glucose Arterial Blood Ionized Calcium Urine WBC (Auto) Coronavirus (PCR) SARS-CoV-2 IgG Ab Crossmatch 07/24/20 07/24/20 07/25/20 16:45 23:43 05:00 WBC RBC Hgb Hct MCV MCH MCHC RDW Lymph % (Auto) [place] % (Auto) Lymph # (Auto) [place] # (Auto) Baso # (Auto) Seg Neutrophils % Seg Neuts % (Manual) Lymphocytes % (Manual) Nucleated RBC % Seg Neutrophils # Seg Neutrophils # Man Lymphocytes # (Manual) Monocytes # (Manual) Eosinophils # (Manual) PT INR APTT D-Dimer Heparin Anti-Xa Level ABG pH POC ABG pCO2 POC ABG pO2 ABG pO2 ABG HCO3 ABG O2 Saturation ABG Base Excess ABG Hemoglobin ABG Oxyhemoglobin ABG Sodium ABG Potassium ABG Chloride ABG Glucose Oxyhemoglobin Carboxyhemoglobin Sodium Potassium Chloride Carbon Dioxide BUN Creatinine Glucose POC Glucose 181 H 122 H 114 H Lactic Acid Calcium Phosphorus Magnesium Ferritin Total Bilirubin Direct Bilirubin AST ALT Alkaline Phosphatase Lactate Dehydrogenase C-Reactive Protein Total Protein Albumin Triglycerides Lipase Arterial Blood Glucose Arterial Blood Ionized Calcium Urine WBC (Auto) Coronavirus (PCR) SARS-CoV-2 IgG Ab Crossmatch 07/25/20 07/25/20 07/25/20 11:44 16:44 23:41 WBC RBC Hgb Hct MCV MCH MCHC RDW Lymph % (Auto) [place] % (Auto) Lymph # (Auto) [place] # (Auto) Baso # (Auto) Seg Neutrophils % Seg Neuts % (Manual) Lymphocytes % (Manual) Nucleated RBC % Seg Neutrophils # Seg Neutrophils # Man Lymphocytes # (Manual) Monocytes # (Manual) Eosinophils # (Manual) PT INR APTT D-Dimer Heparin Anti-Xa Level ABG pH POC ABG pCO2 POC ABG pO2 ABG pO2 ABG HCO3 ABG O2 Saturation ABG Base Excess ABG Hemoglobin ABG Oxyhemoglobin ABG Sodium ABG Potassium ABG Chloride ABG Glucose Oxyhemoglobin Carboxyhemoglobin Sodium Potassium Chloride Carbon Dioxide BUN Creatinine Glucose POC Glucose 298 H 166 H 133 H Lactic Acid Calcium Phosphorus Magnesium Ferritin Total Bilirubin Direct Bilirubin AST ALT Alkaline Phosphatase Lactate Dehydrogenase C-Reactive Protein Total Protein Albumin Triglycerides Lipase Arterial Blood Glucose Arterial Blood Ionized Calcium Urine WBC (Auto) Coronavirus (PCR) SARS-CoV-2 IgG Ab Crossmatch 07/26/20 07/26/20 07/26/20 05:17 11:17 18:07 WBC RBC Hgb Hct MCV MCH MCHC RDW Lymph % (Auto) [place] % (Auto) Lymph # (Auto) [place] # (Auto) Baso # (Auto) Seg Neutrophils % Seg Neuts % (Manual) Lymphocytes % (Manual) Nucleated RBC % Seg Neutrophils # Seg Neutrophils # Man Lymphocytes # (Manual) Monocytes # (Manual) Eosinophils # (Manual) PT INR APTT D-Dimer Heparin Anti-Xa Level ABG pH POC ABG pCO2 POC ABG pO2 ABG pO2 ABG HCO3 ABG O2 Saturation ABG Base Excess ABG Hemoglobin ABG Oxyhemoglobin ABG Sodium ABG Potassium ABG Chloride ABG Glucose Oxyhemoglobin Carboxyhemoglobin Sodium Potassium Chloride Carbon Dioxide BUN Creatinine Glucose POC Glucose 113 H 157 H 154 H Lactic Acid Calcium Phosphorus Magnesium Ferritin Total Bilirubin Direct Bilirubin AST ALT Alkaline Phosphatase Lactate Dehydrogenase C-Reactive Protein Total Protein Albumin Triglycerides Lipase Arterial Blood Glucose Arterial Blood Ionized Calcium Urine WBC (Auto) Coronavirus (PCR) SARS-CoV-2 IgG Ab Crossmatch 07/26/20 07/27/20 07/27/20 23:44 08:26 08:26 WBC RBC 3.63 L Hgb Hct MCV 98 H MCH MCHC RDW 17.5 H Lymph % (Auto) [place] % (Auto) 10.6 H Lymph # (Auto) [place] # (Auto) 1.1 H Baso # (Auto) Seg Neutrophils % Seg Neuts % (Manual) Lymphocytes % (Manual) Nucleated RBC % Seg Neutrophils # Seg Neutrophils # Man Lymphocytes # (Manual) Monocytes # (Manual) Eosinophils # (Manual) PT INR APTT D-Dimer Heparin Anti-Xa Level ABG pH POC ABG pCO2 POC ABG pO2 ABG pO2 ABG HCO3 ABG O2 Saturation ABG Base Excess ABG Hemoglobin ABG Oxyhemoglobin ABG Sodium ABG Potassium ABG Chloride ABG Glucose Oxyhemoglobin Carboxyhemoglobin Sodium Potassium Chloride 97.9 L Carbon Dioxide 37 H D BUN Creatinine 0.4 L Glucose 115 H POC Glucose 148 H Lactic Acid Calcium Phosphorus Magnesium Ferritin Total Bilirubin Direct Bilirubin AST ALT Alkaline Phosphatase Lactate Dehydrogenase C-Reactive Protein Total Protein Albumin Triglycerides Lipase Arterial Blood Glucose Arterial Blood Ionized Calcium Urine WBC (Auto) Coronavirus (PCR) SARS-CoV-2 IgG Ab Crossmatch 07/27/20 07/27/20 07/27/20 11:41 16:50 23:22 WBC RBC Hgb Hct MCV MCH MCHC RDW Lymph % (Auto) [place] % (Auto) Lymph # (Auto) [place] # (Auto) Baso # (Auto) Seg Neutrophils % Seg Neuts % (Manual) Lymphocytes % (Manual) Nucleated RBC % Seg Neutrophils # Seg Neutrophils # Man Lymphocytes # (Manual) Monocytes # (Manual) Eosinophils # (Manual) PT INR APTT D-Dimer Heparin Anti-Xa Level ABG pH POC ABG pCO2 POC ABG pO2 ABG pO2 ABG HCO3 ABG O2 Saturation ABG Base Excess ABG Hemoglobin ABG Oxyhemoglobin ABG Sodium ABG Potassium ABG Chloride ABG Glucose Oxyhemoglobin Carboxyhemoglobin Sodium Potassium Chloride Carbon Dioxide BUN Creatinine Glucose POC Glucose 169 H 132 H 120 H Lactic Acid Calcium Phosphorus Magnesium Ferritin Total Bilirubin Direct Bilirubin AST ALT Alkaline Phosphatase Lactate Dehydrogenase C-Reactive Protein Total Protein Albumin Triglycerides Lipase Arterial Blood Glucose Arterial Blood Ionized Calcium Urine WBC (Auto) Coronavirus (PCR) SARS-CoV-2 IgG Ab Crossmatch 07/28/20 07/29/20 07/29/20 17:39 14:14 16:32 WBC RBC Hgb Hct MCV MCH MCHC RDW Lymph % (Auto) [place] % (Auto) Lymph # (Auto) [place] # (Auto) Baso # (Auto) Seg Neutrophils % Seg Neuts % (Manual) Lymphocytes % (Manual) Nucleated RBC % Seg Neutrophils # Seg Neutrophils # Man Lymphocytes # (Manual) Monocytes # (Manual) Eosinophils # (Manual) PT INR APTT D-Dimer Heparin Anti-Xa Level ABG pH POC ABG pCO2 POC ABG pO2 ABG pO2 ABG HCO3 ABG O2 Saturation ABG Base Excess ABG Hemoglobin ABG Oxyhemoglobin ABG Sodium ABG Potassium ABG Chloride ABG Glucose Oxyhemoglobin Carboxyhemoglobin Sodium Potassium Chloride Carbon Dioxide BUN Creatinine Glucose POC Glucose 187 H 188 H 193 H Lactic Acid Calcium Phosphorus Magnesium Ferritin Total Bilirubin Direct Bilirubin AST ALT Alkaline Phosphatase Lactate Dehydrogenase C-Reactive Protein Total Protein Albumin Triglycerides Lipase Arterial Blood Glucose Arterial Blood Ionized Calcium Urine WBC (Auto) Coronavirus (PCR) SARS-CoV-2 IgG Ab Crossmatch 07/30/20 07/30/20 07/30/20 12:03 15:59 23:20 WBC RBC Hgb Hct MCV MCH MCHC RDW Lymph % (Auto) [place] % (Auto) Lymph # (Auto) [place] # (Auto) Baso # (Auto) Seg Neutrophils % Seg Neuts % (Manual) Lymphocytes % (Manual) Nucleated RBC % Seg Neutrophils # Seg Neutrophils # Man Lymphocytes # (Manual) Monocytes # (Manual) Eosinophils # (Manual) PT INR APTT D-Dimer Heparin Anti-Xa Level ABG pH POC ABG pCO2 POC ABG pO2 ABG pO2 ABG HCO3 ABG O2 Saturation ABG Base Excess ABG Hemoglobin ABG Oxyhemoglobin ABG Sodium ABG Potassium ABG Chloride ABG Glucose Oxyhemoglobin Carboxyhemoglobin Sodium Potassium Chloride Carbon Dioxide BUN Creatinine Glucose POC Glucose 133 H 191 H 144 H Lactic Acid Calcium Phosphorus Magnesium Ferritin Total Bilirubin Direct Bilirubin AST ALT Alkaline Phosphatase Lactate Dehydrogenase C-Reactive Protein Total Protein Albumin Triglycerides Lipase Arterial Blood Glucose Arterial Blood Ionized Calcium Urine WBC (Auto) Coronavirus (PCR) SARS-CoV-2 IgG Ab Crossmatch 07/31/20 07/31/20 07/31/20 05:28 12:01 16:43 WBC RBC Hgb Hct MCV MCH MCHC RDW Lymph % (Auto) [place] % (Auto) Lymph # (Auto) [place] # (Auto) Baso # (Auto) Seg Neutrophils % Seg Neuts % (Manual) Lymphocytes % (Manual) Nucleated RBC % Seg Neutrophils # Seg Neutrophils # Man Lymphocytes # (Manual) Monocytes # (Manual) Eosinophils # (Manual) PT INR APTT D-Dimer Heparin Anti-Xa Level ABG pH POC ABG pCO2 POC ABG pO2 ABG pO2 ABG HCO3 ABG O2 Saturation ABG Base Excess ABG Hemoglobin ABG Oxyhemoglobin ABG Sodium ABG Potassium ABG Chloride ABG Glucose Oxyhemoglobin Carboxyhemoglobin Sodium Potassium Chloride Carbon Dioxide BUN Creatinine Glucose POC Glucose 128 H 137 H 170 H Lactic Acid Calcium Phosphorus Magnesium Ferritin Total Bilirubin Direct Bilirubin AST ALT Alkaline Phosphatase Lactate Dehydrogenase C-Reactive Protein Total Protein Albumin Triglycerides Lipase Arterial Blood Glucose Arterial Blood Ionized Calcium Urine WBC (Auto) Coronavirus (PCR) SARS-CoV-2 IgG Ab Crossmatch 07/31/20 08/01/20 08/01/20 20:28 07:44 11:02 WBC RBC Hgb Hct MCV MCH MCHC RDW Lymph % (Auto) [place] % (Auto) Lymph # (Auto) [place] # (Auto) Baso # (Auto) Seg Neutrophils % Seg Neuts % (Manual) Lymphocytes % (Manual) Nucleated RBC % Seg Neutrophils # Seg Neutrophils # Man Lymphocytes # (Manual) Monocytes # (Manual) Eosinophils # (Manual) PT INR APTT D-Dimer Heparin Anti-Xa Level ABG pH POC ABG pCO2 POC ABG pO2 ABG pO2 ABG HCO3 ABG O2 Saturation ABG Base Excess ABG Hemoglobin ABG Oxyhemoglobin ABG Sodium ABG Potassium ABG Chloride ABG Glucose Oxyhemoglobin Carboxyhemoglobin Sodium Potassium Chloride Carbon Dioxide BUN Creatinine Glucose POC Glucose 142 H 111 H 137 H Lactic Acid Calcium Phosphorus Magnesium Ferritin Total Bilirubin Direct Bilirubin AST ALT Alkaline Phosphatase Lactate Dehydrogenase C-Reactive Protein Total Protein Albumin Triglycerides Lipase Arterial Blood Glucose Arterial Blood Ionized Calcium Urine WBC (Auto) Coronavirus (PCR) SARS-CoV-2 IgG Ab Crossmatch 08/01/20 08/01/20 08/02/20 15:46 20:46 05:55 WBC 12.4 H RBC Hgb Hct MCV 99 H MCH MCHC RDW 16.9 H Lymph % (Auto) [place] % (Auto) 9.7 H Lymph # (Auto) [place] # (Auto) 1.2 H Baso # (Auto) Seg Neutrophils % Seg Neuts % (Manual) Lymphocytes % (Manual) Nucleated RBC % Seg Neutrophils # 8.5 H Seg Neutrophils # Man Lymphocytes # (Manual) Monocytes # (Manual) Eosinophils # (Manual) PT INR APTT D-Dimer Heparin Anti-Xa Level ABG pH POC ABG pCO2 POC ABG pO2 ABG pO2 ABG HCO3 ABG O2 Saturation ABG Base Excess ABG Hemoglobin ABG Oxyhemoglobin ABG Sodium ABG Potassium ABG Chloride ABG Glucose Oxyhemoglobin Carboxyhemoglobin Sodium Potassium Chloride Carbon Dioxide BUN Creatinine Glucose POC Glucose 131 H 123 H Lactic Acid Calcium Phosphorus Magnesium Ferritin Total Bilirubin Direct Bilirubin AST ALT Alkaline Phosphatase Lactate Dehydrogenase C-Reactive Protein Total Protein Albumin Triglycerides Lipase Arterial Blood Glucose Arterial Blood Ionized Calcium Urine WBC (Auto) Coronavirus (PCR) SARS-CoV-2 IgG Ab Crossmatch 08/02/20 08/02/20 08/02/20 05:55 08:19 12:24 WBC RBC Hgb Hct MCV MCH MCHC RDW Lymph % (Auto) [place] % (Auto) Lymph # (Auto) [place] # (Auto) Baso # (Auto) Seg Neutrophils % Seg Neuts % (Manual) Lymphocytes % (Manual) Nucleated RBC % Seg Neutrophils # Seg Neutrophils # Man Lymphocytes # (Manual) Monocytes # (Manual) Eosinophils # (Manual) PT INR APTT D-Dimer Heparin Anti-Xa Level ABG pH POC ABG pCO2 POC ABG pO2 ABG pO2 ABG HCO3 ABG O2 Saturation ABG Base Excess ABG Hemoglobin ABG Oxyhemoglobin ABG Sodium ABG Potassium ABG Chloride ABG Glucose Oxyhemoglobin Carboxyhemoglobin Sodium Potassium 2.9 L* Chloride 96.5 L Carbon Dioxide 39 H BUN Creatinine 0.3 L Glucose 105 H POC Glucose 152 H 144 H Lactic Acid Calcium Phosphorus Magnesium Ferritin Total Bilirubin Direct Bilirubin AST ALT 118 H Alkaline Phosphatase Lactate Dehydrogenase C-Reactive Protein Total Protein Albumin 3.3 L Triglycerides Lipase Arterial Blood Glucose Arterial Blood Ionized Calcium Urine WBC (Auto) Coronavirus (PCR) SARS-CoV-2 IgG Ab Crossmatch 08/02/20 08/02/20 08/02/20 13:55 16:23 17:00 WBC RBC Hgb Hct MCV MCH MCHC RDW Lymph % (Auto) [place] % (Auto) Lymph # (Auto) [place] # (Auto) Baso # (Auto) Seg Neutrophils % Seg Neuts % (Manual) Lymphocytes % (Manual) Nucleated RBC % Seg Neutrophils # Seg Neutrophils # Man Lymphocytes # (Manual) Monocytes # (Manual) Eosinophils # (Manual) PT INR APTT D-Dimer Heparin Anti-Xa Level ABG pH POC ABG pCO2 POC ABG pO2 ABG pO2 ABG HCO3 ABG O2 Saturation ABG Base Excess ABG Hemoglobin ABG Oxyhemoglobin ABG Sodium ABG Potassium ABG Chloride ABG Glucose Oxyhemoglobin Carboxyhemoglobin Sodium Potassium 3.0 L Chloride Carbon Dioxide BUN Creatinine Glucose POC Glucose 142 H 193 H Lactic Acid Calcium Phosphorus Magnesium Ferritin Total Bilirubin Direct Bilirubin AST ALT Alkaline Phosphatase Lactate Dehydrogenase C-Reactive Protein Total Protein Albumin Triglycerides Lipase Arterial Blood Glucose Arterial Blood Ionized Calcium Urine WBC (Auto) Coronavirus (PCR) SARS-CoV-2 IgG Ab Crossmatch 08/02/20 08/03/20 08/03/20 21:21 05:18 08:05 WBC RBC Hgb Hct MCV MCH MCHC RDW Lymph % (Auto) [place] % (Auto) Lymph # (Auto) [place] # (Auto) Baso # (Auto) Seg Neutrophils % Seg Neuts % (Manual) Lymphocytes % (Manual) Nucleated RBC % Seg Neutrophils # Seg Neutrophils # Man Lymphocytes # (Manual) Monocytes # (Manual) Eosinophils # (Manual) PT INR APTT D-Dimer Heparin Anti-Xa Level ABG pH POC ABG pCO2 POC ABG pO2 ABG pO2 ABG HCO3 ABG O2 Saturation ABG Base Excess ABG Hemoglobin ABG Oxyhemoglobin ABG Sodium ABG Potassium ABG Chloride ABG Glucose Oxyhemoglobin Carboxyhemoglobin Sodium Potassium Chloride Carbon Dioxide 32 H D BUN Creatinine 0.4 L Glucose POC Glucose 161 H 107 H Lactic Acid Calcium Phosphorus Magnesium Ferritin Total Bilirubin Direct Bilirubin AST ALT Alkaline Phosphatase Lactate Dehydrogenase C-Reactive Protein Total Protein Albumin Triglycerides Lipase Arterial Blood Glucose Arterial Blood Ionized Calcium Urine WBC (Auto) Coronavirus (PCR) SARS-CoV-2 IgG Ab Crossmatch 08/03/20 08/03/20 08/04/20 12:03 20:20 07:46 WBC RBC Hgb Hct MCV MCH MCHC RDW Lymph % (Auto) [place] % (Auto) Lymph # (Auto) [place] # (Auto) Baso # (Auto) Seg Neutrophils % Seg Neuts % (Manual) Lymphocytes % (Manual) Nucleated RBC % Seg Neutrophils # Seg Neutrophils # Man Lymphocytes # (Manual) Monocytes # (Manual) Eosinophils # (Manual) PT INR APTT D-Dimer Heparin Anti-Xa Level ABG pH POC ABG pCO2 POC ABG pO2 ABG pO2 ABG HCO3 ABG O2 Saturation ABG Base Excess ABG Hemoglobin ABG Oxyhemoglobin ABG Sodium ABG Potassium ABG Chloride ABG Glucose Oxyhemoglobin Carboxyhemoglobin Sodium Potassium Chloride Carbon Dioxide BUN Creatinine Glucose POC Glucose 135 H 167 H 109 H Lactic Acid Calcium Phosphorus Magnesium Ferritin Total Bilirubin Direct Bilirubin AST ALT Alkaline Phosphatase Lactate Dehydrogenase C-Reactive Protein Total Protein Albumin Triglycerides Lipase Arterial Blood Glucose Arterial Blood Ionized Calcium Urine WBC (Auto) Coronavirus (PCR) SARS-CoV-2 IgG Ab Crossmatch 08/04/20 08/04/20 08/04/20 11:54 16:48 20:39 WBC RBC Hgb Hct MCV MCH MCHC RDW Lymph % (Auto) [place] % (Auto) Lymph # (Auto) [place] # (Auto) Baso # (Auto) Seg Neutrophils % Seg Neuts % (Manual) Lymphocytes % (Manual) Nucleated RBC % Seg Neutrophils # Seg Neutrophils # Man Lymphocytes # (Manual) Monocytes # (Manual) Eosinophils # (Manual) PT INR APTT D-Dimer Heparin Anti-Xa Level ABG pH POC ABG pCO2 POC ABG pO2 ABG pO2 ABG HCO3 ABG O2 Saturation ABG Base Excess ABG Hemoglobin ABG Oxyhemoglobin ABG Sodium ABG Potassium ABG Chloride ABG Glucose Oxyhemoglobin Carboxyhemoglobin Sodium Potassium Chloride Carbon Dioxide BUN Creatinine Glucose POC Glucose 133 H 150 H 139 H Lactic Acid Calcium Phosphorus Magnesium Ferritin Total Bilirubin Direct Bilirubin AST ALT Alkaline Phosphatase Lactate Dehydrogenase C-Reactive Protein Total Protein Albumin Triglycerides Lipase Arterial Blood Glucose Arterial Blood Ionized Calcium Urine WBC (Auto) Coronavirus (PCR) SARS-CoV-2 IgG Ab Crossmatch 08/05/20 08/05/20 08/05/20 07:45 11:36 16:09 WBC RBC Hgb Hct MCV MCH MCHC RDW Lymph % (Auto) [place] % (Auto) Lymph # (Auto) [place] # (Auto) Baso # (Auto) Seg Neutrophils % Seg Neuts % (Manual) Lymphocytes % (Manual) Nucleated RBC % Seg Neutrophils # Seg Neutrophils # Man Lymphocytes # (Manual) Monocytes # (Manual) Eosinophils # (Manual) PT INR APTT D-Dimer Heparin Anti-Xa Level ABG pH POC ABG pCO2 POC ABG pO2 ABG pO2 ABG HCO3 ABG O2 Saturation ABG Base Excess ABG Hemoglobin ABG Oxyhemoglobin ABG Sodium ABG Potassium ABG Chloride ABG Glucose Oxyhemoglobin Carboxyhemoglobin Sodium Potassium Chloride Carbon Dioxide BUN Creatinine Glucose POC Glucose 115 H 112 H 118 H Lactic Acid Calcium Phosphorus Magnesium Ferritin Total Bilirubin Direct Bilirubin AST ALT Alkaline Phosphatase Lactate Dehydrogenase C-Reactive Protein Total Protein Albumin Triglycerides Lipase Arterial Blood Glucose Arterial Blood Ionized Calcium Urine WBC (Auto) Coronavirus (PCR) SARS-CoV-2 IgG Ab Crossmatch 08/05/20 08/06/20 08/06/20 22:06 11:09 16:51 WBC RBC Hgb Hct MCV MCH MCHC RDW Lymph % (Auto) [place] % (Auto) Lymph # (Auto) [place] # (Auto) Baso # (Auto) Seg Neutrophils % Seg Neuts % (Manual) Lymphocytes % (Manual) Nucleated RBC % Seg Neutrophils # Seg Neutrophils # Man Lymphocytes # (Manual) Monocytes # (Manual) Eosinophils # (Manual) PT INR APTT D-Dimer Heparin Anti-Xa Level ABG pH POC ABG pCO2 POC ABG pO2 ABG pO2 ABG HCO3 ABG O2 Saturation ABG Base Excess ABG Hemoglobin ABG Oxyhemoglobin ABG Sodium ABG Potassium ABG Chloride ABG Glucose Oxyhemoglobin Carboxyhemoglobin Sodium Potassium Chloride Carbon Dioxide BUN Creatinine Glucose POC Glucose 120 H 125 H 135 H Lactic Acid Calcium Phosphorus Magnesium Ferritin Total Bilirubin Direct Bilirubin AST ALT Alkaline Phosphatase Lactate Dehydrogenase C-Reactive Protein Total Protein Albumin Triglycerides Lipase Arterial Blood Glucose Arterial Blood Ionized Calcium Urine WBC (Auto) Coronavirus (PCR) SARS-CoV-2 IgG Ab Crossmatch 08/06/20 08/07/20 08/07/20 20:21 08:15 12:46 WBC RBC Hgb Hct MCV MCH MCHC RDW Lymph % (Auto) [place] % (Auto) Lymph # (Auto) [place] # (Auto) Baso # (Auto) Seg Neutrophils % Seg Neuts % (Manual) Lymphocytes % (Manual) Nucleated RBC % Seg Neutrophils # Seg Neutrophils # Man Lymphocytes # (Manual) Monocytes # (Manual) Eosinophils # (Manual) PT INR APTT D-Dimer Heparin Anti-Xa Level ABG pH POC ABG pCO2 POC ABG pO2 ABG pO2 ABG HCO3 ABG O2 Saturation ABG Base Excess ABG Hemoglobin ABG Oxyhemoglobin ABG Sodium ABG Potassium ABG Chloride ABG Glucose Oxyhemoglobin Carboxyhemoglobin Sodium Potassium Chloride Carbon Dioxide BUN Creatinine Glucose POC Glucose 127 H 120 H 113 H Lactic Acid Calcium Phosphorus Magnesium Ferritin Total Bilirubin Direct Bilirubin AST ALT Alkaline Phosphatase Lactate Dehydrogenase C-Reactive Protein Total Protein Albumin Triglycerides Lipase Arterial Blood Glucose Arterial Blood Ionized Calcium Urine WBC (Auto) Coronavirus (PCR) SARS-CoV-2 IgG Ab Crossmatch 08/07/20 08/07/20 08/08/20 16:38 21:30 07:40 WBC RBC Hgb Hct MCV MCH MCHC RDW Lymph % (Auto) [place] % (Auto) Lymph # (Auto) [place] # (Auto) Baso # (Auto) Seg Neutrophils % Seg Neuts % (Manual) Lymphocytes % (Manual) Nucleated RBC % Seg Neutrophils # Seg Neutrophils # Man Lymphocytes # (Manual) Monocytes # (Manual) Eosinophils # (Manual) PT INR APTT D-Dimer Heparin Anti-Xa Level ABG pH POC ABG pCO2 POC ABG pO2 ABG pO2 ABG HCO3 ABG O2 Saturation ABG Base Excess ABG Hemoglobin ABG Oxyhemoglobin ABG Sodium ABG Potassium ABG Chloride ABG Glucose Oxyhemoglobin Carboxyhemoglobin Sodium Potassium Chloride Carbon Dioxide BUN Creatinine Glucose POC Glucose 119 H 129 H 115 H Lactic Acid Calcium Phosphorus Magnesium Ferritin Total Bilirubin Direct Bilirubin AST ALT Alkaline Phosphatase Lactate Dehydrogenase C-Reactive Protein Total Protein Albumin Triglycerides Lipase Arterial Blood Glucose Arterial Blood Ionized Calcium Urine WBC (Auto) Coronavirus (PCR) SARS-CoV-2 IgG Ab Crossmatch 08/08/20 08/08/20 08/08/20 11:31 16:03 21:17 WBC RBC Hgb Hct MCV MCH MCHC RDW Lymph % (Auto) [place] % (Auto) Lymph # (Auto) [place] # (Auto) Baso # (Auto) Seg Neutrophils % Seg Neuts % (Manual) Lymphocytes % (Manual) Nucleated RBC % Seg Neutrophils # Seg Neutrophils # Man Lymphocytes # (Manual) Monocytes # (Manual) Eosinophils # (Manual) PT INR APTT D-Dimer Heparin Anti-Xa Level ABG pH POC ABG pCO2 POC ABG pO2 ABG pO2 ABG HCO3 ABG O2 Saturation ABG Base Excess ABG Hemoglobin ABG Oxyhemoglobin ABG Sodium ABG Potassium ABG Chloride ABG Glucose Oxyhemoglobin Carboxyhemoglobin Sodium Potassium Chloride Carbon Dioxide BUN Creatinine Glucose POC Glucose 117 H 113 H 132 H Lactic Acid Calcium Phosphorus Magnesium Ferritin Total Bilirubin Direct Bilirubin AST ALT Alkaline Phosphatase Lactate Dehydrogenase C-Reactive Protein Total Protein Albumin Triglycerides Lipase Arterial Blood Glucose Arterial Blood Ionized Calcium Urine WBC (Auto) Coronavirus (PCR) SARS-CoV-2 IgG Ab Crossmatch 08/09/20 08/09/20 08/09/20 11:53 16:53 21:39 WBC RBC Hgb Hct MCV MCH MCHC RDW Lymph % (Auto) [place] % (Auto) Lymph # (Auto) [place] # (Auto) Baso # (Auto) Seg Neutrophils % Seg Neuts % (Manual) Lymphocytes % (Manual) Nucleated RBC % Seg Neutrophils # Seg Neutrophils # Man Lymphocytes # (Manual) Monocytes # (Manual) Eosinophils # (Manual) PT INR APTT D-Dimer Heparin Anti-Xa Level ABG pH POC ABG pCO2 POC ABG pO2 ABG pO2 ABG HCO3 ABG O2 Saturation ABG Base Excess ABG Hemoglobin ABG Oxyhemoglobin ABG Sodium ABG Potassium ABG Chloride ABG Glucose Oxyhemoglobin Carboxyhemoglobin Sodium Potassium Chloride Carbon Dioxide BUN Creatinine Glucose POC Glucose 131 H 153 H 114 H Lactic Acid Calcium Phosphorus Magnesium Ferritin Total Bilirubin Direct Bilirubin AST ALT Alkaline Phosphatase Lactate Dehydrogenase C-Reactive Protein Total Protein Albumin Triglycerides Lipase Arterial Blood Glucose Arterial Blood Ionized Calcium Urine WBC (Auto) Coronavirus (PCR) SARS-CoV-2 IgG Ab Crossmatch 08/10/20 08/10/20 08/10/20 07:58 11:57 16:53 WBC RBC Hgb Hct MCV MCH MCHC RDW Lymph % (Auto) [place] % (Auto) Lymph # (Auto) [place] # (Auto) Baso # (Auto) Seg Neutrophils % Seg Neuts % (Manual) Lymphocytes % (Manual) Nucleated RBC % Seg Neutrophils # Seg Neutrophils # Man Lymphocytes # (Manual) Monocytes # (Manual) Eosinophils # (Manual) PT INR APTT D-Dimer Heparin Anti-Xa Level ABG pH POC ABG pCO2 POC ABG pO2 ABG pO2 ABG HCO3 ABG O2 Saturation ABG Base Excess ABG Hemoglobin ABG Oxyhemoglobin ABG Sodium ABG Potassium ABG Chloride ABG Glucose Oxyhemoglobin Carboxyhemoglobin Sodium Potassium Chloride Carbon Dioxide BUN Creatinine Glucose POC Glucose 106 H 139 H 140 H Lactic Acid Calcium Phosphorus Magnesium Ferritin Total Bilirubin Direct Bilirubin AST ALT Alkaline Phosphatase Lactate Dehydrogenase C-Reactive Protein Total Protein Albumin Triglycerides Lipase Arterial Blood Glucose Arterial Blood Ionized Calcium Urine WBC (Auto) Coronavirus (PCR) SARS-CoV-2 IgG Ab Crossmatch 08/10/20 08/11/20 08/11/20 20:45 12:07 15:58 WBC RBC Hgb Hct MCV MCH MCHC RDW Lymph % (Auto) [place] % (Auto) Lymph # (Auto) [place] # (Auto) Baso # (Auto) Seg Neutrophils % Seg Neuts % (Manual) Lymphocytes % (Manual) Nucleated RBC % Seg Neutrophils # Seg Neutrophils # Man Lymphocytes # (Manual) Monocytes # (Manual) Eosinophils # (Manual) PT INR APTT D-Dimer Heparin Anti-Xa Level ABG pH POC ABG pCO2 POC ABG pO2 ABG pO2 ABG HCO3 ABG O2 Saturation ABG Base Excess ABG Hemoglobin ABG Oxyhemoglobin ABG Sodium ABG Potassium ABG Chloride ABG Glucose Oxyhemoglobin Carboxyhemoglobin Sodium Potassium Chloride Carbon Dioxide BUN Creatinine Glucose POC Glucose 161 H 114 H 133 H Lactic Acid Calcium Phosphorus Magnesium Ferritin Total Bilirubin Direct Bilirubin AST ALT Alkaline Phosphatase Lactate Dehydrogenase C-Reactive Protein Total Protein Albumin Triglycerides Lipase Arterial Blood Glucose Arterial Blood Ionized Calcium Urine WBC (Auto) Coronavirus (PCR) SARS-CoV-2 IgG Ab Crossmatch 08/11/20 08/11/20 08/12/20 18:43 20:45 07:46 WBC RBC Hgb Hct MCV MCH MCHC RDW Lymph % (Auto) [place] % (Auto) Lymph # (Auto) [place] # (Auto) Baso # (Auto) Seg Neutrophils % Seg Neuts % (Manual) Lymphocytes % (Manual) Nucleated RBC % Seg Neutrophils # Seg Neutrophils # Man Lymphocytes # (Manual) Monocytes # (Manual) Eosinophils # (Manual) PT INR APTT D-Dimer Heparin Anti-Xa Level ABG pH POC ABG pCO2 51.0 H POC ABG pO2 ABG pO2 ABG HCO3 ABG O2 Saturation ABG Base Excess ABG Hemoglobin ABG Oxyhemoglobin ABG Sodium ABG Potassium ABG Chloride ABG Glucose 149 H Oxyhemoglobin Carboxyhemoglobin Sodium Potassium Chloride Carbon Dioxide BUN Creatinine Glucose POC Glucose 111 H 112 H Lactic Acid Calcium Phosphorus Magnesium Ferritin Total Bilirubin Direct Bilirubin AST ALT Alkaline Phosphatase Lactate Dehydrogenase C-Reactive Protein Total Protein Albumin Triglycerides Lipase Arterial Blood Glucose 149 H Arterial Blood Ionized Calcium Urine WBC (Auto) Coronavirus (PCR) SARS-CoV-2 IgG Ab Crossmatch 08/12/20 08/12/20 08/13/20 18:34 21:09 16:10 WBC RBC Hgb Hct MCV MCH MCHC RDW Lymph % (Auto) [place] % (Auto) Lymph # (Auto) [place] # (Auto) Baso # (Auto) Seg Neutrophils % Seg Neuts % (Manual) Lymphocytes % (Manual) Nucleated RBC % Seg Neutrophils # Seg Neutrophils # Man Lymphocytes # (Manual) Monocytes # (Manual) Eosinophils # (Manual) PT INR APTT D-Dimer Heparin Anti-Xa Level ABG pH POC ABG pCO2 POC ABG pO2 ABG pO2 ABG HCO3 ABG O2 Saturation ABG Base Excess ABG Hemoglobin ABG Oxyhemoglobin ABG Sodium ABG Potassium ABG Chloride ABG Glucose Oxyhemoglobin Carboxyhemoglobin Sodium Potassium Chloride 97.2 L Carbon Dioxide BUN Creatinine 0.5 L Glucose 132 H POC Glucose 120 H 140 H Lactic Acid Calcium Phosphorus Magnesium Ferritin Total Bilirubin Direct Bilirubin AST ALT Alkaline Phosphatase Lactate Dehydrogenase C-Reactive Protein Total Protein Albumin Triglycerides Lipase Arterial Blood Glucose Arterial Blood Ionized Calcium Urine WBC (Auto) Coronavirus (PCR) SARS-CoV-2 IgG Ab Crossmatch 08/13/20 08/14/20 08/14/20 21:16 11:20 16:14 WBC RBC Hgb Hct MCV MCH MCHC RDW Lymph % (Auto) [place] % (Auto) Lymph # (Auto) [place] # (Auto) Baso # (Auto) Seg Neutrophils % Seg Neuts % (Manual) Lymphocytes % (Manual) Nucleated RBC % Seg Neutrophils # Seg Neutrophils # Man Lymphocytes # (Manual) Monocytes # (Manual) Eosinophils # (Manual) PT INR APTT D-Dimer Heparin Anti-Xa Level ABG pH POC ABG pCO2 POC ABG pO2 ABG pO2 ABG HCO3 ABG O2 Saturation ABG Base Excess ABG Hemoglobin ABG Oxyhemoglobin ABG Sodium ABG Potassium ABG Chloride ABG Glucose Oxyhemoglobin Carboxyhemoglobin Sodium Potassium Chloride Carbon Dioxide BUN Creatinine Glucose POC Glucose 163 H 109 H 118 H Lactic Acid Calcium Phosphorus Magnesium Ferritin Total Bilirubin Direct Bilirubin AST ALT Alkaline Phosphatase Lactate Dehydrogenase C-Reactive Protein Total Protein Albumin Triglycerides Lipase Arterial Blood Glucose Arterial Blood Ionized Calcium Urine WBC (Auto) Coronavirus (PCR) SARS-CoV-2 IgG Ab Crossmatch 08/14/20 08/15/20 08/15/20 20:11 11:58 16:14 WBC RBC Hgb Hct MCV MCH MCHC RDW Lymph % (Auto) [place] % (Auto) Lymph # (Auto) [place] # (Auto) Baso # (Auto) Seg Neutrophils % Seg Neuts % (Manual) Lymphocytes % (Manual) Nucleated RBC % Seg Neutrophils # Seg Neutrophils # Man Lymphocytes # (Manual) Monocytes # (Manual) Eosinophils # (Manual) PT INR APTT D-Dimer Heparin Anti-Xa Level ABG pH POC ABG pCO2 POC ABG pO2 ABG pO2 ABG HCO3 ABG O2 Saturation ABG Base Excess ABG Hemoglobin ABG Oxyhemoglobin ABG Sodium ABG Potassium ABG Chloride ABG Glucose Oxyhemoglobin Carboxyhemoglobin Sodium Potassium Chloride Carbon Dioxide BUN Creatinine Glucose POC Glucose 139 H 120 H 118 H Lactic Acid Calcium Phosphorus Magnesium Ferritin Total Bilirubin Direct Bilirubin AST ALT Alkaline Phosphatase Lactate Dehydrogenase C-Reactive Protein Total Protein Albumin Triglycerides Lipase Arterial Blood Glucose Arterial Blood Ionized Calcium Urine WBC (Auto) Coronavirus (PCR) SARS-CoV-2 IgG Ab Crossmatch 08/16/20 08/16/20 08/16/20 12:02 15:14 20:25 WBC RBC Hgb Hct MCV MCH MCHC RDW Lymph % (Auto) [place] % (Auto) Lymph # (Auto) [place] # (Auto) Baso # (Auto) Seg Neutrophils % Seg Neuts % (Manual) Lymphocytes % (Manual) Nucleated RBC % Seg Neutrophils # Seg Neutrophils # Man Lymphocytes # (Manual) Monocytes # (Manual) Eosinophils # (Manual) PT INR APTT D-Dimer Heparin Anti-Xa Level ABG pH POC ABG pCO2 POC ABG pO2 ABG pO2 ABG HCO3 ABG O2 Saturation ABG Base Excess ABG Hemoglobin ABG Oxyhemoglobin ABG Sodium ABG Potassium ABG Chloride ABG Glucose Oxyhemoglobin Carboxyhemoglobin Sodium Potassium Chloride Carbon Dioxide BUN Creatinine Glucose POC Glucose 128 H 143 H 132 H Lactic Acid Calcium Phosphorus Magnesium Ferritin Total Bilirubin Direct Bilirubin AST ALT Alkaline Phosphatase Lactate Dehydrogenase C-Reactive Protein Total Protein Albumin Triglycerides Lipase Arterial Blood Glucose Arterial Blood Ionized Calcium Urine WBC (Auto) Coronavirus (PCR) SARS-CoV-2 IgG Ab Crossmatch 08/17/20 08/17/20 08/17/20 07:34 10:59 16:10 WBC RBC Hgb Hct MCV MCH MCHC RDW Lymph % (Auto) [place] % (Auto) Lymph # (Auto) [place] # (Auto) Baso # (Auto) Seg Neutrophils % Seg Neuts % (Manual) Lymphocytes % (Manual) Nucleated RBC % Seg Neutrophils # Seg Neutrophils # Man Lymphocytes # (Manual) Monocytes # (Manual) Eosinophils # (Manual) PT INR APTT D-Dimer Heparin Anti-Xa Level ABG pH POC ABG pCO2 POC ABG pO2 ABG pO2 ABG HCO3 ABG O2 Saturation ABG Base Excess ABG Hemoglobin ABG Oxyhemoglobin ABG Sodium ABG Potassium ABG Chloride ABG Glucose Oxyhemoglobin Carboxyhemoglobin Sodium Potassium Chloride Carbon Dioxide BUN Creatinine Glucose POC Glucose 113 H 125 H 120 H Lactic Acid Calcium Phosphorus Magnesium Ferritin Total Bilirubin Direct Bilirubin AST ALT Alkaline Phosphatase Lactate Dehydrogenase C-Reactive Protein Total Protein Albumin Triglycerides Lipase Arterial Blood Glucose Arterial Blood Ionized Calcium Urine WBC (Auto) Coronavirus (PCR) SARS-CoV-2 IgG Ab Crossmatch 02/03/2908/18/20 08/18/20 20:13 11:59 16:35 WBC RBC Hgb Hct MCV MCH MCHC RDW Lymph % (Auto) [place] % (Auto) Lymph # (Auto) [place] # (Auto) Baso # (Auto) Seg Neutrophils % Seg Neuts % (Manual) Lymphocytes % (Manual) Nucleated RBC % Seg Neutrophils # Seg Neutrophils # Man Lymphocytes # (Manual) Monocytes # (Manual) Eosinophils # (Manual) PT INR APTT D-Dimer Heparin Anti-Xa Level ABG pH POC ABG pCO2 POC ABG pO2 ABG pO2 ABG HCO3 ABG O2 Saturation ABG Base Excess ABG Hemoglobin ABG Oxyhemoglobin ABG Sodium ABG Potassium ABG Chloride ABG Glucose Oxyhemoglobin Carboxyhemoglobin Sodium Potassium Chloride Carbon Dioxide BUN Creatinine Glucose POC Glucose 148 H 140 H 126 H Lactic Acid Calcium Phosphorus Magnesium Ferritin Total Bilirubin Direct Bilirubin AST ALT Alkaline Phosphatase Lactate Dehydrogenase C-Reactive Protein Total Protein Albumin Triglycerides Lipase Arterial Blood Glucose Arterial Blood Ionized Calcium Urine WBC (Auto) Coronavirus (PCR) SARS-CoV-2 IgG Ab Crossmatch 08/18/20 08/19/20 08/19/20 21:15 11:43 15:39 WBC RBC Hgb Hct MCV MCH MCHC RDW Lymph % (Auto) [place] % (Auto) Lymph # (Auto) [place] # (Auto) Baso # (Auto) Seg Neutrophils % Seg Neuts % (Manual) Lymphocytes % (Manual) Nucleated RBC % Seg Neutrophils # Seg Neutrophils # Man Lymphocytes # (Manual) Monocytes # (Manual) Eosinophils # (Manual) PT INR APTT D-Dimer Heparin Anti-Xa Level ABG pH POC ABG pCO2 POC ABG pO2 ABG pO2 ABG HCO3 ABG O2 Saturation ABG Base Excess ABG Hemoglobin ABG Oxyhemoglobin ABG Sodium ABG Potassium ABG Chloride ABG Glucose Oxyhemoglobin Carboxyhemoglobin Sodium Potassium Chloride Carbon Dioxide BUN Creatinine Glucose POC Glucose 119 H 109 H 117 H Lactic Acid Calcium Phosphorus Magnesium Ferritin Total Bilirubin Direct Bilirubin AST ALT Alkaline Phosphatase Lactate Dehydrogenase C-Reactive Protein Total Protein Albumin Triglycerides Lipase Arterial Blood Glucose Arterial Blood Ionized Calcium Urine WBC (Auto) Coronavirus (PCR) SARS-CoV-2 IgG Ab Crossmatch 08/20/20 08/20/20 08/20/20 07:46 15:58 20:37 WBC RBC Hgb Hct MCV MCH MCHC RDW Lymph % (Auto) [place] % (Auto) Lymph # (Auto) [place] # (Auto) Baso # (Auto) Seg Neutrophils % Seg Neuts % (Manual) Lymphocytes % (Manual) Nucleated RBC % Seg Neutrophils # Seg Neutrophils # Man Lymphocytes # (Manual) Monocytes # (Manual) Eosinophils # (Manual) PT INR APTT D-Dimer Heparin Anti-Xa Level ABG pH POC ABG pCO2 POC ABG pO2 ABG pO2 ABG HCO3 ABG O2 Saturation ABG Base Excess ABG Hemoglobin ABG Oxyhemoglobin ABG Sodium ABG Potassium ABG Chloride ABG Glucose Oxyhemoglobin Carboxyhemoglobin Sodium Potassium Chloride Carbon Dioxide BUN Creatinine Glucose POC Glucose 106 H 133 H 144 H Lactic Acid Calcium Phosphorus Magnesium Ferritin Total Bilirubin Direct Bilirubin AST ALT Alkaline Phosphatase Lactate Dehydrogenase C-Reactive Protein Total Protein Albumin Triglycerides Lipase Arterial Blood Glucose Arterial Blood Ionized Calcium Urine WBC (Auto) Coronavirus (PCR) SARS-CoV-2 IgG Ab Crossmatch 08/21/20 08/21/20 08/21/20 07:44 11:42 16:43 WBC RBC Hgb Hct MCV MCH MCHC RDW Lymph % (Auto) [place] % (Auto) Lymph # (Auto) [place] # (Auto) Baso # (Auto) Seg Neutrophils % Seg Neuts % (Manual) Lymphocytes % (Manual) Nucleated RBC % Seg Neutrophils # Seg Neutrophils # Man Lymphocytes # (Manual) Monocytes # (Manual) Eosinophils # (Manual) PT INR APTT D-Dimer Heparin Anti-Xa Level ABG pH POC ABG pCO2 POC ABG pO2 ABG pO2 ABG HCO3 ABG O2 Saturation ABG Base Excess ABG Hemoglobin ABG Oxyhemoglobin ABG Sodium ABG Potassium ABG Chloride ABG Glucose Oxyhemoglobin Carboxyhemoglobin Sodium Potassium Chloride Carbon Dioxide BUN Creatinine Glucose POC Glucose 123 H 135 H 128 H Lactic Acid Calcium Phosphorus Magnesium Ferritin Total Bilirubin Direct Bilirubin AST ALT Alkaline Phosphatase Lactate Dehydrogenase C-Reactive Protein Total Protein Albumin Triglycerides Lipase Arterial Blood Glucose Arterial Blood Ionized Calcium Urine WBC (Auto) Coronavirus (PCR) SARS-CoV-2 IgG Ab Crossmatch 08/22/20 08/22/20 08/22/20 05:11 05:11 11:12 WBC RBC Hgb Hct MCV 95 H MCH MCHC RDW 16.4 H Lymph % (Auto) [place] % (Auto) 9.7 H Lymph # (Auto) [place] # (Auto) 1.0 H Baso # (Auto) Seg Neutrophils % Seg Neuts % (Manual) Lymphocytes % (Manual) Nucleated RBC % Seg Neutrophils # Seg Neutrophils # Man Lymphocytes # (Manual) Monocytes # (Manual) Eosinophils # (Manual) PT INR APTT D-Dimer Heparin Anti-Xa Level ABG pH POC ABG pCO2 POC ABG pO2 ABG pO2 ABG HCO3 ABG O2 Saturation ABG Base Excess ABG Hemoglobin ABG Oxyhemoglobin ABG Sodium ABG Potassium ABG Chloride ABG Glucose Oxyhemoglobin Carboxyhemoglobin Sodium Potassium 3.3 L Chloride Carbon Dioxide 31 H BUN Creatinine 0.6 L Glucose POC Glucose 116 H Lactic Acid Calcium Phosphorus 5.10 H Magnesium Ferritin Total Bilirubin Direct Bilirubin AST ALT Alkaline Phosphatase Lactate Dehydrogenase C-Reactive Protein Total Protein Albumin Triglycerides Lipase Arterial Blood Glucose Arterial Blood Ionized Calcium Urine WBC (Auto) Coronavirus (PCR) SARS-CoV-2 IgG Ab Crossmatch Allied health notes reviewed: nursing
[2020-08-22] MEDS: ENOXAPARIN 40 MG/0.4 ML INJ SUB-Q SCH (22:55)
[2020-08-22] MEDS: guaiFENesin/CODEINE 100-10MG ORAL LIQD 5 ML PO PRN (23:49)
--- NOTE | 2020-08-23 08:29 | Progress Note ---
Hospitalist Physical - Constitutional Vitals: Temp Pulse Resp BP Pulse Ox 98.0 F 95 H 18 106/70 97 08/23/20 04:20 08/23/20 04:20 08/23/20 04:20 08/23/20 04:20 08/23/20 04:20 General appearance: Present: no acute distress, well-nourished HEART Score - HEART Score Troponin: Troponin T 0.015 ng/mL (0.00-0.029) 07/07/20 10:00 Results - Labs CBC & Chem 7: 08/22/20 05:11 08/23/20 04:39 Labs: Laboratory Last Values WBC 10.6 K/mm3 (4.5-11.0) 08/22/20 05:11 RBC 4.13 M/mm3 (3.65-5.03) 08/22/20 05:11 Hgb 12.9 gm/dl (11.8-15.2) 08/22/20 05:11 Hct 39.1 % (35.5-45.6) 08/22/20 05:11 MCV 95 fl (84-94) H 08/22/20 05:11 MCH 31 pg (28-32) 08/22/20 05:11 MCHC 33 % (32-34) 08/22/20 05:11 RDW 16.4 % (13.2-15.2) H 08/22/20 05:11 Plt Count 331 K/mm3 (140-440) 08/22/20 05:11 Lymph % (Auto) 18.6 % (13.4-35.0) 08/22/20 05:11 [place] % (Auto) 9.7 % (0.0-7.3) H 08/22/20 05:11 Eos % (Auto) 3.4 % (0.0-4.3) 08/22/20 05:11 Baso % (Auto) 0.5 % (0.0-1.8) 08/22/20 05:11 Lymph # (Auto) 2.0 K/mm3 (1.2-5.4) 08/22/20 05:11 [place] # (Auto) 1.0 K/mm3 (0.0-0.8) H 08/22/20 05:11 Eos # (Auto) 0.4 K/mm3 (0.0-0.4) 08/22/20 05:11 Baso # (Auto) 0.0 K/mm3 (0.0-0.1) 08/22/20 05:11 Add Manual Diff Complete 07/13/20 08:31 Total Counted 100 07/13/20 08:31 Seg Neutrophils % 67.8 % (40.0-70.0) 08/22/20 05:11 Seg Neuts % (Manual) 96.0 % (40.0-70.0) H 07/13/20 08:31 Band Neutrophils % 0 % 07/13/20 08:31 Lymphocytes % (Manual) 2.0 % (13.4-35.0) L 07/13/20 08:31 Reactive Lymphs % (Man) 0 % 07/13/20 08:31 Monocytes % (Manual) 2.0 % (0.0-7.3) 07/13/20 08:31 Eosinophils % (Manual) 0 % (0.0-4.3) 07/13/20 08:31 Basophils % (Manual) 0 % (0.0-1.8) 07/13/20 08:31 Metamyelocytes % 0 % 07/13/20 08:31 Myelocytes % 0 % 07/13/20 08:31 Promyelocytes % 0 % 07/13/20 08:31 Blast Cells % 0 % 07/13/20 08:31 Nucleated RBC % Not Reportable 07/13/20 08:31 Seg Neutrophils # 7.2 K/mm3 (1.8-7.7) 08/22/20 05:11 Seg Neutrophils # Man 20.4 K/mm3 (1.8-7.7) H 07/13/20 08:31 Band Neutrophils # 0.0 K/mm3 07/13/20 08:31 Lymphocytes # (Manual) 0.4 K/mm3 (1.2-5.4) L 07/13/20 08:31 Abs React Lymphs (Man) 0.0 K/mm3 07/13/20 08:31 Monocytes # (Manual) 0.4 K/mm3 (0.0-0.8) 07/13/20 08:31 Eosinophils # (Manual) 0.0 K/mm3 (0.0-0.4) 07/13/20 08:31 Basophils # (Manual) 0.0 K/mm3 (0.0-0.1) 07/13/20 08:31 Metamyelocytes # 0.0 K/mm3 07/13/20 08:31 Myelocytes # 0.0 K/mm3 07/13/20 08:31 Promyelocytes # 0.0 K/mm3 07/13/20 08:31 Blast Cells # 0.0 K/mm3 07/13/20 08:31 WBC Morphology Not Reportable 07/13/20 08:31 Hypersegmented Neuts Not Reportable 07/13/20 08:31 Hyposegmented Neuts Not Reportable 07/13/20 08:31 Hypogranular Neuts Not Reportable 07/13/20 08:31 Smudge Cells Not Reportable 07/13/20 08:31 Toxic Granulation Not Reportable 07/13/20 08:31 Toxic Vacuolation Not Reportable 07/13/20 08:31 Dohle Bodies Not Reportable 07/13/20 08:31 Pelger-Huet Anomaly Not Reportable 07/13/20 08:31 Jason Rods Not Reportable 07/13/20 08:31 Platelet Estimate Consistent w auto 07/13/20 08:31 Clumped Platelets Not Reportable 07/13/20 08:31 Plt Clumps, EDTA Not Reportable 07/13/20 08:31 Large Platelets Not Reportable 07/13/20 08:31 Giant Platelets Not Reportable 07/13/20 08:31 Platelet Satelliting Not Reportable 07/13/20 08:31 Plt Morphology Comment Not Reportable 07/13/20 08:31 RBC Morphology Not Reportable 07/13/20 08:31 Dimorphic RBCs Not Reportable 07/13/20 08:31 Polychromasia Not Reportable 07/13/20 08:31 Hypochromasia Not Reportable 07/13/20 08:31 Poikilocytosis Not Reportable 07/13/20 08:31 Anisocytosis Not Reportable 07/13/20 08:31 Microcytosis Not Reportable 07/13/20 08:31 Macrocytosis Not Reportable 07/13/20 08:31 Spherocytes Not Reportable 07/13/20 08:31 Pappenheimer Bodies Not Reportable 07/13/20 08:31 Sickle Cells Not Reportable 07/13/20 08:31 Target Cells Not Reportable 07/13/20 08:31 Tear Drop Cells Not Reportable 07/13/20 08:31 Ovalocytes Not Reportable 07/13/20 08:31 Stomatocytes Few 07/13/20 08:31 Helmet Cells Not Reportable 07/13/20 08:31 [place] Bodies Not Reportable 07/13/20 08:31 [place] Rings Not Reportable 07/13/20 08:31 [place] Cells Not Reportable 07/13/20 08:31 Bite Cells Not Reportable 07/13/20 08:31 Crenated Cell Not Reportable 07/13/20 08:31 Elliptocytes Not Reportable 07/13/20 08:31 Acanthocytes (Spur) Not Reportable 07/13/20 08:31 Rouleaux Not Reportable 07/13/20 08:31 Hemoglobin C Crystals Not Reportable 07/13/20 08:31 Schistocytes Not Reportable 07/13/20 08:31 Malaria parasites Not Reportable 07/13/20 08:31 Josue Bodies Not Reportable 07/13/20 08:31 Hem Pathologist Commnt No 07/13/20 08:31 PT 11.8 Sec. (12.2-14.9) L 06/22/20 14:29 INR 0.88 (0.87-1.13) 06/22/20 14:29 APTT 23.5 Sec. (24.2-36.6) L 06/22/20 14:29 D-Dimer 1887.82 ng/mlDDU (0-234) H 05/20/20 08:16 Heparin Anti-Xa Level 0.37 U.I./ml (0.3-0.7) 07/02/20 16:08 ABG pH 7.437 (7.320-7.450) 08/11/20 18:43 POC ABG pCO2 51.0 mmHg (32.0-48.0) H 08/11/20 18:43 ABG pCO2 53.1 mm Hg 07/08/20 Unknown POC ABG pO2 84.9 mmHg (83-108) 08/11/20 18:43 ABG pO2 75.3 mm Hg (80.0-90.0) L 07/08/20 Unknown POC ABG HCO3 33.6 08/11/20 18:43 ABG HCO3 34.3 mmol/L (20.0-26.0) H 07/08/20 Unknown ABG O2 Saturation 96.5 % (95.0-99.0) 07/08/20 Unknown ABG O2 Content 13.5 (0.0-44) 07/08/20 Unknown POC ABG Base Excess 7.9 08/11/20 18:43 ABG Base Excess 8.7 mmol/L (-2.0-3.0) H 07/08/20 Unknown ABG Hemoglobin 13.8 (12.0-17.5) 08/11/20 18:43 ABG Oxyhemoglobin 94.6 (94-98) 08/11/20 18:43 ABG Carboxyhemoglobin 2.4 % (0.0-5.0) 07/08/20 Unknown ABG Methemoglobin 0.3 (0.0-1.5) 08/11/20 18:43 ABG Sodium 138.0 mmol/L (136.0-145.0) 08/11/20 18:43 ABG Potassium 3.4 mmol/L (3.40-4.50) 08/11/20 18:43 ABG Chloride 99.0 mmol/L (98-107) 08/11/20 18:43 ABG Glucose 149 mg/dL (65-95) H 08/11/20 18:43 Oxyhemoglobin 93.7 % (95.0-99.0) L 07/08/20 Unknown Carboxyhemoglobin 1.2 (0.5-1.5) 08/11/20 18:43 FiO2 50.0 08/11/20 18:43 Sodium 143 mmol/L (137-145) 08/22/20 05:11 Potassium 3.8 mmol/L (3.6-5.0) 08/23/20 04:39 Chloride 99.8 mmol/L (98-107) 08/22/20 05:11 Carbon Dioxide 31 mmol/L (22-30) H 08/22/20 05:11 Anion Gap 16 mmol/L 08/22/20 05:11 BUN 15 mg/dL (9-20) 08/22/20 05:11 Creatinine 0.6 mg/dL (0.8-1.3) L 08/22/20 05:11 Estimated GFR > 60 ml/min 08/22/20 05:11 BUN/Creatinine Ratio 25 % 08/22/20 05:11 Glucose 95 mg/dL (75-100) 08/22/20 05:11 POC Glucose 118 mg/dL (70-105) H 08/22/20 15:43 Lactic Acid 0.80 mmol/L (0.7-2.0) 07/13/20 15:45 Calcium 10.1 mg/dL (8.4-10.2) 08/22/20 05:11 Phosphorus 5.10 mg/dL (2.5-4.5) H 08/22/20 05:11 Magnesium 1.90 mg/dL (1.7-2.3) 08/23/20 04:39 Ferritin 1496.0 ng/mL (30.0-300.0) H 06/14/20 11:50 Total Bilirubin 0.30 mg/dL (0.1-1.2) 08/02/20 05:55 Direct Bilirubin 0.6 mg/dL (0-0.2) H 05/11/20 07:30 Indirect Bilirubin 0.9 mg/dL 05/11/20 07:30 AST 37 units/L (5-40) 08/02/20 05:55 ALT 118 units/L (7-56) H 08/02/20 05:55 Alkaline Phosphatase 88 units/L (35-129) 08/02/20 05:55 Lactate Dehydrogenase 705 units/L (91-180) H 05/20/20 08:16 Troponin T 0.015 ng/mL (0.00-0.029) 07/07/20 10:00 C-Reactive Protein 3.10 mg/dL (0.00-1.30) H 05/20/20 08:16 Total Protein 6.4 g/dL (6.3-8.2) 08/02/20 05:55 Albumin 3.3 g/dL (3.9-5) L 08/02/20 05:55 Albumin/Globulin Ratio 1.1 % 08/02/20 05:55 Triglycerides 452 mg/dL (2-149) H 06/30/20 07:00 Lipase 86 units/L (13-60) H 06/29/20 09:36 Procalcitonin 2.15 ng/mL (<0.15) 07/15/20 05:31 Arterial Blood Glucose 149 mg/dL (65-95) H 08/11/20 18:43 Arterial Blood Ionized Calcium 4.8 mg/dL (4.6-5.3) 08/11/20 18:43 Urine Color Fauzia (Yellow) 05/10/20 Unknown Urine Turbidity Clear (Clear) 05/10/20 Unknown Urine pH 5.0 (5.0-7.0) 05/10/20 Unknown Ur Specific [place] 1.019 (1.003-1.030) 05/10/20 Unknown Urine Protein 100 mg/dl mg/dL (Negative) 05/10/20 Unknown Urine Glucose (UA) Neg mg/dL (Negative) 05/10/20 Unknown Urine Ketones Neg mg/dL (Negative) 05/10/20 Unknown Urine Blood Lg (Negative) 05/10/20 Unknown Urine Nitrite Neg (Negative) 05/10/20 Unknown Urine Bilirubin Neg (Negative) 05/10/20 Unknown Urine Urobilinogen 2.0 mg/dL (<2.0) 05/10/20 Unknown Ur Leukocyte Esterase Neg (Negative) 05/10/20 Unknown Urine WBC (Auto) 11.0 /HPF (0.0-6.0) H 05/10/20 Unknown Urine RBC (Auto) 2.0 /HPF (0.0-6.0) 05/10/20 Unknown U Epithel Cells (Auto) 1.0 /HPF (0-13.0) 05/10/20 Unknown Urine Bacteria (Auto) 1+ /HPF (Negative) 05/10/20 Unknown Urine Mucus Few /HPF 05/10/20 Unknown Plasma/Serum Alcohol < 0.01 % (0-0.07) 05/09/20 14:20 Coronavirus (PCR) Negative (Negative) 08/06/20 09:36 Hepatitis A Ab Total Nonreactive (Nonreactive) 07/09/20 Unknown Hep B Core Total Ab Nonreactive (Nonreactive) 07/09/20 Unknown Hepatitis C RNA Quant See scanned result 07/09/20 Unknown SARS-CoV-2 IgG Ab Reactive (NonReactive) A 05/11/20 07:30 Blood Type B POSITIVE 06/21/20 14:18 Antibody Screen Negative 06/21/20 14:18 Crossmatch See Detail 06/21/20 14:18 - Diagnostic Impressions Diagnostic Impressions: Echocardiogram 05/20/20 13:02 Transthoracic Echocardiogram Indication: CHF BP: 97/73 Conclusions *The study quality is technically very difficult and limited. *The left ventricular chamber size, wall thickness and systolic function are within normal limits. There are no wall motion abnormalities observed. Ejection fraction is normal. *The estimated ejection fraction is 60-65%. *The pericardium appears normal. Findings Procedure Info: The study quality is technically difficult. Left Ventricle: The left ventricular chamber size, wall thickness and systolic function are within normal limits. There are no wall motion abnormalities observed. Ejection fraction is normal. The estimated ejection fraction is 60-65%. Abnormal left ventricular diastolic filling is observed, consistent with impaired relaxation. Left Atrium: The left atrium is normal in size with no visual thrombus identified. Right Ventricle: The right ventricle is not well visualized. Right Atrium: The right atrium is not well visualized. Aortic Valve: The aortic valve is trileaflet. The leaflets are thin with normal excursion. There is no aortic stenosis or regurgitation present. Mitral Valve: The mitral valve appears normal in structure and function. Tricuspid Valve: The tricuspid valve appears normal in structure and function. Unable to estimate the right ventricular systolic pressure. Pulmonic Valve: The pulmonic valve is not well visualized. There is no evidence of pulmonic regurgitation. There is no pulmonic stenosis. Pericardium: The pericardium appears normal. Pulmonary Artery: The main pulmonary artery is not well visualized. Venous: The inferior vena cava appears normal in size. Measurements Chambers 2D Name Value Normal Range IVSd (2D) 0.83 cm (0.6 - 1.1) LVPWd (2D) 0.83 cm (0.6 - 1.1) LVIDd (2D) 3.88 cm (3.7 - 5.6) LVIDs (2D) 2.46 cm (2 - 3.8) LV FS (2D) 36.52 % - EF Teichholz (2D) 66.97 % - Ao root diameter (2D) 3.47 cm (2 - 3.7) Volumes/Mass Name Value Normal Range LA ESV SP 4CH (A/L) 22.4 ml - LA ESV SP 2CH (A/L) 22.89 ml - LA ESV BP (A/L) 23.06 ml - LA ESV SP 4CH (MOD) 21.09 ml - LA ESV SP 2CH (MOD) 22.44 ml - Diastolic/Systolic Function Name Value Normal Range MV E-wave Vmax 0.48 m/sec - MV deceleration time 156.3 msec - MV A-wave Vmax 0.59 m/sec - MV E:A ratio 0.81 ratio - Aortic Valve Name Value Normal Range AV Vmax 0.97 m/sec - AV VTI 14.49 cm - AV peak gradient 3.73 mmHg - AV mean gradient 1.89 mmHg - LVOT diameter 2.09 cm - LVOT Vmax 0.72 m/sec - LVOT VTI 10.21 cm - LVOT peak gradient 2.05 mmHg - LVOT mean gradient 1.03 mmHg - SV LVOT 35.17 ml - INNA (continuity Vmax) 2.55 cm2 - INNA (continuity VTI) 2.43 cm2 - Tricuspid Valve Name Value Normal Range TV E-wave Vmax 0.37 m/sec - Pulmonic Valve/Qp:Qs Name Value Normal Range PV Vmax 0.72 m/sec - PV peak gradient 2.06 mmHg - RVOT Vmax 0.85 m/sec - RVOT VTI 9.89 cm - RVOT peak gradient 2.9 mmHg - PV acceleration time 72.31 msec - [place]/IV: Voiding Method Urinal IV Catheter Type [Right Wrist] INT / Saline Lock IV Catheter Type [Right Upper Peripheral IV arm] IV Catheter Type [Right CVL Internal Jugular] IV Catheter Type [Right Peripheral IV Forearm] IV Catheter Type [Left Forearm INT / Saline Lock ] IV Catheter Type [Left Wrist] INT / Saline Lock IV Catheter Type [Right Hand] INT / Saline Lock IV Catheter Type [Left Hand] INT / Saline Lock IV Catheter Type [Left Peripheral IV Antecubital] Active Medications - Current Medications Current Medications: Generic Name Dose Route Start Last Admin Trade Name Freq PRN Reason Stop Dose Admin Acetaminophen 650 mg 08/07/20 10:06 08/13/20 16:05 Acetaminophen 325 Mg Tab PO 650 mg Q4H PRN Administration Pain, Mild (1-3) Bisacodyl 10 mg 07/14/20 11:00 Bisacodyl 10 Mg Rect Supp [place] BID PRN Laxative Effect Enoxaparin Sodium 40 mg 07/29/20 22:00 08/22/20 22:55 Enoxaparin 40 Mg/0.4 Ml Inj SUB-Q 40 mg QDAY@2200 DESIRE Administration Protocol Folic Acid 1 mg 05/09/20 15:36 08/22/20 09:17 Folic Acid 1 Mg Tab PO 1 mg QDAY DESIRE Administration Guaifenesin 600 mg 07/19/20 23:00 08/22/20 22:55 Guaifenesin Er 600 Mg Tab PO 600 mg BID DESIRE Administration Hydrophilic Ointment 1 applic 05/21/20 20:33 Lip Therapy Vaseline TP Q2HR PRN Dry Lips Insulin Human Lispro 0 unit 07/31/20 07:30 08/22/20 22:55 Insulin Lispro 100 Unit/Ml SUB-Q Not Given ACHS [facility] Protocol Lansoprazole 30 mg 06/28/20 10:00 08/22/20 09:17 Lansoprazole 30 Mg Solutab FEEDTUBE 30 mg QDAY DESIRE Administration Metoprolol Tartrate 5 mg 07/02/20 17:17 08/13/20 14:44 Metoprolol Tartrate 5 Mg/5 Ml Inj IV 5 mg Q6HR PRN Administration Tachyarrhythmias Metoprolol Tartrate 25 mg 08/12/20 12:00 08/22/20 22:55 Metoprolol Tartrate 25 Mg Tab PO 25 mg BID DESIRE Administration Multi-Ingred Cream/Lotion/Oil/Oint 1 applic 05/21/20 20:33 Mineral Oil/Petrolatum, White Ophth Oint 3.5 Gm OU Q4HR PRN Dry Eye(s) Olanzapine 5 mg 07/17/20 22:00 08/22/20 22:55 Olanzapine 5 Mg Tab PO 5 mg QHS DESIRE Administration Phenobarbital 32.4 mg 07/04/20 22:00 08/22/20 22:55 Phenobarbital 32.4 Mg Tab PO 32.4 mg BID DESIRE Administration Pseudoephedrine/Acetam/Chlorphenir 10 ml 08/18/20 15:45 08/22/20 23:49 Guaifenesin/Codeine 100-10mg Oral Liqd 5 Ml PO 10 ml Q4H PRN Administration Cough Quetiapine Fumarate 200 mg 07/16/20 10:00 08/22/20 09:17 Quetiapine 200 Mg Tab PO 200 mg QAM DESIRE Administration Senna 17.2 mg 07/14/20 11:00 08/03/20 16:46 Sennosides 8.6 Mg Tab PO 8.6 mg BID PRN Administration Laxative Effect Nutrition/Malnutrition Assess - Dietary Evaluation Nutrition/Malnutrition Findings: Nutrition Notes Start: 05/17/20 14:10 Freq: Status: Active Protocol: Document 08/18/20 12:39 CW (Rec: 08/18/20 12:53 CW [id number]) Nutrition Notes Initial or Follow up Reassessment Current Diagnosis Acute Kidney Injury,Decubitus( Pressure Ulcer),Sepsis, Respiratory Failure Other Pertinent Diagnosis Bilat pneu, COVID-19 (-), Colonic pseudoobstuction, EtOH dependence Current Diet Regular diet Labs/Tests Reviewed Pertinent Medications Reviewed Height 6 ft Weight 99.5 kg Usual Body Weight 118 kg [place] Body Weight (kg) 80.90 BMI 29.7 Weight change and time frame Weight gain noted Weight Status Overweight Subjective/Other Information F/u for intakes, Sammy and ONS tolerance. Pt reports consuming 100% of meals and ONS. R/O good appetite. Pt denies N/V/D/C. Percent of energy/protein needs met: 100%/100% Burn Absent Trauma Absent GI Symptoms None Current % PO Good (75-100%) Minimum of two criteria Yes Interpretation of Weight Loss (severe) >5% in 1 month Muscle Mass Mild Depletion (non-severe) #3 Nutrition Diagnosis Malnutrition Diagnosis Progress(for reassessment Continues documentation) #2 Nutrition Diagnosis Increased nutrient needs ( specify in comment below) Diagnosis Progress(for reassessment Continues documentation) Is patient on ventilator? No Is Patient Ambulatory and/or Out of Bed No REE-([facility]-confined to bed) 2269.308 Kcal/Kg value to use for calculation 21 Approximate Energy Requirements Using 2090 kcal/Kg Calculation Used for Recommendations Kcal/kg Additional Notes Protein: 108-135 g (1.2-1.5 g/ kg AdBW 90 kg) Fluid: 1ml/kcal Nutrition Intervention Change Diet Order: Continue diet Add Supplement/Snack (indicate name/kcal Ensure High Protein daily /protein ) Sammy BID Provides kCal: 350 Provides Protein (gm) 21 Goal #1 Meet at least 75% protein and energy needs via PO Goal #2 ONS tolerance Goal #3 Intake of Sammy BID Anticipated Discharge Needs: Regular dier, Sammy BID and Ensure High Protein until wound healed Follow-Up By: 08/25/20 Additional Comments F/u stable intakes, ONS and Sammy tolerance/intake
--- NOTE | 2020-08-23 08:32 | Progress Note ---
Assessment and Plan Assessment and plan: Positive COVID-19 test; 05/10/2020 Negative COVID-19 test; 06/30/2020 --Hypokalemia; replenish with KCl --Acute hypoxemic resp failure; oxygen dependent on 2 L NC, today ,requiring intermittent BiPAP Due to COVID-19 pneumonia --Persistent sinus tachycardia: Multifactorial We will closely monitor --Severe COVID-19 bilateral pneumonia Coronavirus protocol: Completed steroids and remdesivir therapy, isolation precautions, Received management per COVID-19 protocol --Pneumothorax status post right chest tube Chest tube removed 07/23/2020 Post removal chest x-ray no pneumothorax Patient is requiring 3 to 4 L nasal cannula And intermittent BiPAP --Elevated D-dimers; Patient had CTA chest ; negative for PE, Lower extremity venous Doppler negative for DVT --Pseudomonas bacteremia; ID following, completed cefepime --Severe sepsis/septic shock, monitor off pressors Completed cefepime, monitor off antibiotics -- Acute kidney injury (SEN) , likely vasomotor nephropathy Resolved, avoid nephrotoxins --Acute on chronic anemia Guaiac test positive, GI evaluated the patient Patient H&H is normal range -- Elevated liver function tests; resolved LFTs within normal limits --Colonic distention GI evaluated colonic distention resolved recommend stool softeners -- DVT prophylaxis On Lovenox CTA chest negative for PE,LE DVT negative, therapeutic Lovenox DC'd Changed to prophylactic Lovenox Patient is medically stable for discharge Disposition; insurance did not approve IRU Possible subacute rehab placement DC planning per case management Plan of care reviewed with the patient and his nurse Brief history: 50 YO Male with Obesity, ETOH Dependence presents to ED for evaluation. Patient states that he has experienced shortness of breath, generalized weakness, fatigue, malaise, body aches, decreased exercise tolerance over the past 5 days with persistently worsening symptoms over the same timeframe. EMS was notified and upon arrival the patient was found to be in distress with a pulse oximetry of 76% on room air as well as fever to 103 F. Patient was placed on supplemental oxygen and subsequently transported to [facility] for further care and evaluation. Patient seen and evaluated in the emergency department. All lab and imaging studies reviewed. Patient underwent chest x-ray and was found to have bilateral pneumonia. Patient also found to have a pulse oximetry of 86% on 4 L nasal cannula. Patient initiated on a high flow submental oxygen with improvement of pulse oximetry. Patient admitted to medical floor and initiated on pneumonia protocol as well as COVID-19 protocol. Patient also found to have acute kidney injury as well as elevated liver function test suspected secondary to alcohol dependence. Patient reports being diagnosed with coronavirus 2 days ago. No prior admission for review. 07/23/2020; patient remains on high flow oxygen, wean oxygen as tolerated, severe hypokalemia Replenish per protocol monitor levels 07/24/2020; patient had chest tube removal yesterday 07/23/2019 and, post removal chest x-ray no pneumothorax no acute abnormalities Patient feels slightly better continues to require high flow oxygen Wean as tolerated, physical and occupational therapy, DC planning 07/26/2020; patient on 3 L nasal cannula oxygen, patient feels better 07/27/2020; patient was saturating well on 3 L of nasal cannula oxygen, however today patient is on high flow oxygen 15 L Complains of some congestion, wean oxygen levels to 3-5 as tolerated Discharge planning LTAC has refused patient,Possible home with home health versus placement when medically stable 07/28/2020; continue to wean oxygen, patient is on 10 L, awaiting placement 07/29/2020; continues to be on 10 L nasal cannula oxygen, wean as tolerated Patient is on empiric therapeutic dose Lovenox, due to elevated D-dimers Patient is stable for CTA chest today, follow the report and adjust Lovenox as needed DC planning per case management, with pending placement 07/30/2020; patient feels slightly better, oxygen reduced to 8 L of nasal cannula Will check PT OT, pending placement 07/31/2020 :Patient on 8 L of nasal cannula oxygen 08/03/2020; patient's oxygen requirement has come down to 3-4 and half liters nasal cannula Will try to wean oxygen as tolerated, respiratory therapist assisting to reach the goal Possible discharge home in 1 to 2 days if stable Plan of care reviewed with the patient and his nurse 08/04/2020; patient is requiring 3 to 4 L nasal cannula oxygen, case management to set up home oxygen Patient is hemodynamically and clinically stable for discharge, pending placement [facility]s [facility] And of care reviewed with the patient and his nurse as well as the case management 08/05/2020 ; COVID-19 test requested , patient is hemodynamically and clinically stable for discharge Patient is requiring 4 L of nasal cannula oxygen . medically stable for discharge 08/06/2020; patient is hemodynamically and clinically stable for discharge and transfer to IRU unit today Pre-discharge COVID-19 test is negative, pending insurance authorization 08/07/20; patient is accepted by inpatient rehab unit for admission, pending in surance authorization Stable for discharge 08/08/2020; patient is stable for discharge to inpatient rehab unit, pending insurance approval 08/09/2020; corrections caseworker reports that insurance has not approved inpatient rehab placement for this patient Will evaluate for home oxygen, set up home oxygen if eligible, and plan discharge home with home health when patient is hemodynamically stable 08/10/2020; patient continues to have persistent tachycardia, and persistent hypoxia requiring 4 L of nasal cannula oxygen As well as intermittent BiPAP, continue current management 08/11/2020; patient continues to require oxygen and intermittent BiPAP, awaiting IRU placement Versus home with home health and home oxygen, DC planning per case management 08/12/2020; awaiting IRU placement versus home with home health on home oxygen 08/14/2020-08/18/2020; patient continues to require 4 L of nasal cannula oxygen Discharge planning is in process, PT recommend acute inpatient rehab, awaiting insurance approval CM reports insurance denied inpatient rehab placement option 08/19/2020; I spoke with insurance physician Dr. Lopez, P2P and discussed patient's condition and the need for inpatient rehab However Dr. Macias reports that PT/OT evaluation and documentation do not reflect that patient can complete 3 hours of acute therapy in acute rehab. It reflects that he can hardly walk few steps/few feet. Advised to reevaluate if he meets the above requirements. Dr. Macias also reports that she can approve for subacute rehab placement. --08/20/2020 ;patient awaiting placement, inpatient rehab versus subacute versus home health DC planning per case management 08/21/2020; pending subacute rehab placement 08/22/2020; on 2 L nasal cannula oxygen, awaiting placement 08/23/2020; awaiting placement/insurance authorization History Interval history: I have seen and examined the patient at the bedside Patient's chart and medications reviewed, vitals noted Patient complains of generalized weakness, on 2 L of nasal cannula oxygen Hospitalist Physical - Constitutional Vitals: Temp Pulse Resp BP Pulse Ox 98.0 F 95 H 18 106/70 97 08/23/20 04:20 08/23/20 04:20 08/23/20 04:20 08/23/20 04:20 08/23/20 04:20 General appearance: Present: no acute distress, well-nourished - EENT Eyes: Present: PERRL, EOM intact - Neck Neck: Present: supple, normal ROM - Respiratory Respiratory effort: normal Respiratory: bilateral: diminished, negative: rales, rhonchi, wheezing - Cardiovascular Rhythm: regular Heart Sounds: Present: S1 & S2 - Extremities Extremities: no ischemia, No edema - Abdominal General gastrointestinal: soft, non-tender, non-distended, normal bowel sounds - Integumentary Integumentary: Present: clear, warm - Psychiatric Psychiatric: appropriate mood/affect, cooperative - Neurologic Neurologic: moves all extremities HEART Score - HEART Score Troponin: Troponin T 0.015 ng/mL (0.00-0.029) 07/07/20 10:00 Results - Labs CBC & Chem 7: 08/22/20 05:11 08/23/20 04:39 Labs: Laboratory Last Values WBC 10.6 K/mm3 (4.5-11.0) 08/22/20 05:11 RBC 4.13 M/mm3 (3.65-5.03) 08/22/20 05:11 Hgb 12.9 gm/dl (11.8-15.2) 08/22/20 05:11 Hct 39.1 % (35.5-45.6) 08/22/20 05:11 MCV 95 fl (84-94) H 08/22/20 05:11 MCH 31 pg (28-32) 08/22/20 05:11 MCHC 33 % (32-34) 08/22/20 05:11 RDW 16.4 % (13.2-15.2) H 08/22/20 05:11 Plt Count 331 K/mm3 (140-440) 08/22/20 05:11 Lymph % (Auto) 18.6 % (13.4-35.0) 08/22/20 05:11 Coal % (Auto) 9.7 % (0.0-7.3) H 08/22/20 05:11 Eos % (Auto) 3.4 % (0.0-4.3) 08/22/20 05:11 Baso % (Auto) 0.5 % (0.0-1.8) 08/22/20 05:11 Lymph # (Auto) 2.0 K/mm3 (1.2-5.4) 08/22/20 05:11 Coal # (Auto) 1.0 K/mm3 (0.0-0.8) H 08/22/20 05:11 Eos # (Auto) 0.4 K/mm3 (0.0-0.4) 08/22/20 05:11 Baso # (Auto) 0.0 K/mm3 (0.0-0.1) 08/22/20 05:11 Add Manual Diff Complete 07/13/20 08:31 Total Counted 100 07/13/20 08:31 Seg Neutrophils % 67.8 % (40.0-70.0) 08/22/20 05:11 Seg Neuts % (Manual) 96.0 % (40.0-70.0) H 07/13/20 08:31 Band Neutrophils % 0 % 07/13/20 08:31 Lymphocytes % (Manual) 2.0 % (13.4-35.0) L 07/13/20 08:31 Reactive Lymphs % (Man) 0 % 07/13/20 08:31 Monocytes % (Manual) 2.0 % (0.0-7.3) 07/13/20 08:31 Eosinophils % (Manual) 0 % (0.0-4.3) 07/13/20 08:31 Basophils % (Manual) 0 % (0.0-1.8) 07/13/20 08:31 Metamyelocytes % 0 % 07/13/20 08:31 Myelocytes % 0 % 07/13/20 08:31 Promyelocytes % 0 % 07/13/20 08:31 Blast Cells % 0 % 07/13/20 08:31 Nucleated RBC % Not Reportable 07/13/20 08:31 Seg Neutrophils # 7.2 K/mm3 (1.8-7.7) 08/22/20 05:11 Seg Neutrophils # Man 20.4 K/mm3 (1.8-7.7) H 07/13/20 08:31 Band Neutrophils # 0.0 K/mm3 07/13/20 08:31 Lymphocytes # (Manual) 0.4 K/mm3 (1.2-5.4) L 07/13/20 08:31 Abs React Lymphs (Man) 0.0 K/mm3 07/13/20 08:31 Monocytes # (Manual) 0.4 K/mm3 (0.0-0.8) 07/13/20 08:31 Eosinophils # (Manual) 0.0 K/mm3 (0.0-0.4) 07/13/20 08:31 Basophils # (Manual) 0.0 K/mm3 (0.0-0.1) 07/13/20 08:31 Metamyelocytes # 0.0 K/mm3 07/13/20 08:31 Myelocytes # 0.0 K/mm3 07/13/20 08:31 Promyelocytes # 0.0 K/mm3 07/13/20 08:31 Blast Cells # 0.0 K/mm3 07/13/20 08:31 WBC Morphology Not Reportable 07/13/20 08:31 Hypersegmented Neuts Not Reportable 07/13/20 08:31 Hyposegmented Neuts Not Reportable 07/13/20 08:31 Hypogranular Neuts Not Reportable 07/13/20 08:31 Smudge Cells Not Reportable 07/13/20 08:31 Toxic Granulation Not Reportable 07/13/20 08:31 Toxic Vacuolation Not Reportable 07/13/20 08:31 Dohle Bodies Not Reportable 07/13/20 08:31 Pelger-Huet Anomaly Not Reportable 07/13/20 08:31 Jason Rods Not Reportable 07/13/20 08:31 Platelet Estimate Consistent w auto 07/13/20 08:31 Clumped Platelets Not Reportable 07/13/20 08:31 Plt Clumps, EDTA Not Reportable 07/13/20 08:31 Large Platelets Not Reportable 07/13/20 08:31 Giant Platelets Not Reportable 07/13/20 08:31 Platelet Satelliting Not Reportable 07/13/20 08:31 Plt Morphology Comment Not Reportable 07/13/20 08:31 RBC Morphology Not Reportable 07/13/20 08:31 Dimorphic RBCs Not Reportable 07/13/20 08:31 Polychromasia Not Reportable 07/13/20 08:31 Hypochromasia Not Reportable 07/13/20 08:31 Poikilocytosis Not Reportable 07/13/20 08:31 Anisocytosis Not Reportable 07/13/20 08:31 Microcytosis Not Reportable 07/13/20 08:31 Macrocytosis Not Reportable 07/13/20 08:31 Spherocytes Not Reportable 07/13/20 08:31 Pappenheimer Bodies Not Reportable 07/13/20 08:31 Sickle Cells Not Reportable 07/13/20 08:31 Target Cells Not Reportable 07/13/20 08:31 Tear Drop Cells Not Reportable 07/13/20 08:31 Ovalocytes Not Reportable 07/13/20 08:31 Stomatocytes Few 07/13/20 08:31 Helmet Cells Not Reportable 07/13/20 08:[address] [place] Don[place] Bodies Not Reportable 07/13/20 08:31 [place] Rings Not Reportable 07/13/20 08:31 [place] Cells Not Reportable 07/13/20 08:31 Bite Cells Not Reportable 07/13/20 08:31 Crenated Cell Not Reportable 07/13/20 08:31 Elliptocytes Not Reportable 07/13/20 08:31 Acanthocytes (Spur) Not Reportable 07/13/20 08:31 Rouleaux Not Reportable 07/13/20 08:31 Hemoglobin C Crystals Not Reportable 07/13/20 08:31 Schistocytes Not Reportable 07/13/20 08:31 Malaria parasites Not Reportable 07/13/20 08:31 Josue Bodies Not Reportable 07/13/20 08:31 Hem Pathologist Commnt No 07/13/20 08:31 PT 11.8 Sec. (12.2-14.9) L 06/22/20 14:29 INR 0.88 (0.87-1.13) 06/22/20 14:29 APTT 23.5 Sec. (24.2-36.6) L 06/22/20 14:29 D-Dimer 1887.82 ng/mlDDU (0-234) H 05/20/20 08:16 Heparin Anti-Xa Level 0.37 U.I./ml (0.3-0.7) 07/02/20 16:08 ABG pH 7.437 (7.320-7.450) 08/11/20 18:43 POC ABG pCO2 51.0 mmHg (32.0-48.0) H 08/11/20 18:43 ABG pCO2 53.1 mm Hg 07/08/20 Unknown POC ABG pO2 84.9 mmHg (83-108) 08/11/20 18:43 ABG pO2 75.3 mm Hg (80.0-90.0) L 07/08/20 Unknown POC ABG HCO3 33.6 08/11/20 18:43 ABG HCO3 34.3 mmol/L (20.0-26.0) H 07/08/20 Unknown ABG O2 Saturation 96.5 % (95.0-99.0) 07/08/20 Unknown ABG O2 Content 13.5 (0.0-44) 07/08/20 Unknown POC ABG Base Excess 7.9 08/11/20 18:43 ABG Base Excess 8.7 mmol/L (-2.0-3.0) H 07/08/20 Unknown ABG Hemoglobin 13.8 (12.0-17.5) 08/11/20 18:43 ABG Oxyhemoglobin 94.6 (94-98) 08/11/20 18:43 ABG Carboxyhemoglobin 2.4 % (0.0-5.0) 07/08/20 Unknown ABG Methemoglobin 0.3 (0.0-1.5) 08/11/20 18:43 ABG Sodium 138.0 mmol/L (136.0-145.0) 08/11/20 18:43 ABG Potassium 3.4 mmol/L (3.40-4.50) 08/11/20 18:43 ABG Chloride 99.0 mmol/L (98-107) 08/11/20 18:43 ABG Glucose 149 mg/dL (65-95) H 08/11/20 18:43 Oxyhemoglobin 93.7 % (95.0-99.0) L 07/08/20 Unknown Carboxyhemoglobin 1.2 (0.5-1.5) 08/11/20 18:43 FiO2 50.0 08/11/20 18:43 Sodium 143 mmol/L (137-145) 08/22/20 05:11 Potassium 3.8 mmol/L (3.6-5.0) 08/23/20 04:39 Chloride 99.8 mmol/L (98-107) 08/22/20 05:11 Carbon Dioxide 31 mmol/L (22-30) H 08/22/20 05:11 Anion Gap 16 mmol/L 08/22/20 05:11 BUN 15 mg/dL (9-20) 08/22/20 05:11 Creatinine 0.6 mg/dL (0.8-1.3) L 08/22/20 05:11 Estimated GFR > 60 ml/min 08/22/20 05:11 BUN/Creatinine Ratio 25 % 08/22/20 05:11 Glucose 95 mg/dL (75-100) 08/22/20 05:11 POC Glucose 118 mg/dL (70-105) H 08/22/20 15:43 Lactic Acid 0.80 mmol/L (0.7-2.0) 07/13/20 15:45 Calcium 10.1 mg/dL (8.4-10.2) 08/22/20 05:11 Phosphorus 5.10 mg/dL (2.5-4.5) H 08/22/20 05:11 Magnesium 1.90 mg/dL (1.7-2.3) 08/23/20 04:39 Ferritin 1496.0 ng/mL (30.0-300.0) H 06/14/20 11:50 Total Bilirubin 0.30 mg/dL (0.1-1.2) 08/02/20 05:55 Direct Bilirubin 0.6 mg/dL (0-0.2) H 05/11/20 07:30 Indirect Bilirubin 0.9 mg/dL 05/11/20 07:30 AST 37 units/L (5-40) 08/02/20 05:55 ALT 118 units/L (7-56) H 08/02/20 05:55 Alkaline Phosphatase 88 units/L (35-129) 08/02/20 05:55 Lactate Dehydrogenase 705 units/L (91-180) H 05/20/20 08:16 Troponin T 0.015 ng/mL (0.00-0.029) 07/07/20 10:00 C-Reactive Protein 3.10 mg/dL (0.00-1.30) H 05/20/20 08:16 Total Protein 6.4 g/dL (6.3-8.2) 08/02/20 05:55 Albumin 3.3 g/dL (3.9-5) L 08/02/20 05:55 Albumin/Globulin Ratio 1.1 % 08/02/20 05:55 Triglycerides 452 mg/dL (2-149) H 06/30/20 07:00 Lipase 86 units/L (13-60) H 06/29/20 09:36 Procalcitonin 2.15 ng/mL (<0.15) 07/15/20 05:31 Arterial Blood Glucose 149 mg/dL (65-95) H 08/11/20 18:43 Arterial Blood Ionized Calcium 4.8 mg/dL (4.6-5.3) 08/11/20 18:43 Urine Color Fauzia (Yellow) 05/10/20 Unknown Urine Turbidity Clear (Clear) 05/10/20 Unknown Urine pH 5.0 (5.0-7.0) 05/10/20 Unknown Ur Specific [place] 1.019 (1.003-1.030) 05/10/20 Unknown Urine Protein 100 mg/dl mg/dL (Negative) 05/10/20 Unknown Urine Glucose (UA) Neg mg/dL (Negative) 05/10/20 Unknown Urine Ketones Neg mg/dL (Negative) 05/10/20 Unknown Urine Blood Lg (Negative) 05/10/20 Unknown Urine Nitrite Neg (Negative) 05/10/20 Unknown Urine Bilirubin Neg (Negative) 05/10/20 Unknown Urine Urobilinogen 2.0 mg/dL (<2.0) 05/10/20 Unknown Ur Leukocyte Esterase Neg (Negative) 05/10/20 Unknown Urine WBC (Auto) 11.0 /HPF (0.0-6.0) H 05/10/20 Unknown Urine RBC (Auto) 2.0 /HPF (0.0-6.0) 05/10/20 Unknown U Epithel Cells (Auto) 1.0 /HPF (0-13.0) 05/10/20 Unknown Urine Bacteria (Auto) 1+ /HPF (Negative) 05/10/20 Unknown Urine Mucus Few /HPF 05/10/20 Unknown Plasma/Serum Alcohol < 0.01 % (0-0.07) 05/09/20 14:20 Coronavirus (PCR) Negative (Negative) 08/06/20 09:36 Hepatitis A Ab Total Nonreactive (Nonreactive) 07/09/20 Unknown Hep B Core Total Ab Nonreactive (Nonreactive) 07/09/20 Unknown Hepatitis C RNA Quant See scanned result 07/09/20 Unknown SARS-CoV-2 IgG Ab Reactive (NonReactive) A 05/11/20 07:30 Blood Type B POSITIVE 06/21/20 14:18 Antibody Screen Negative 06/21/20 14:18 Crossmatch See Detail 06/21/20 14:18 - Diagnostic Impressions Diagnostic Impressions: Echocardiogram 05/20/20 13:02 Transthoracic Echocardiogram Indication: CHF BP: 97/73 Conclusions *The study quality is technically very difficult and limited. *The left ventricular chamber size, wall thickness and systolic function are within normal limits. There are no wall motion abnormalities observed. Ejection fraction is normal. *The estimated ejection fraction is 60-65%. *The pericardium appears normal. Findings Procedure Info: The study quality is technically difficult. Left Ventricle: The left ventricular chamber size, wall thickness and systolic function are within normal limits. There are no wall motion abnormalities observed. Ejection fraction is normal. The estimated ejection fraction is 60-65%. Abnormal left ventricular diastolic filling is observed, consistent with impaired relaxation. Left Atrium: The left atrium is normal in size with no visual thrombus identified. Right Ventricle: The right ventricle is not well visualized. Right Atrium: The right atrium is not well visualized. Aortic Valve: The aortic valve is trileaflet. The leaflets are thin with normal excursion. There is no aortic stenosis or regurgitation present. Mitral Valve: The mitral valve appears normal in structure and function. Tricuspid Valve: The tricuspid valve appears normal in structure and function. Unable to estimate the right ventricular systolic pressure. Pulmonic Valve: The pulmonic valve is not well visualized. There is no evidence of pulmonic regurgitation. There is no pulmonic stenosis. Pericardium: The pericardium appears normal. Pulmonary Artery: The main pulmonary artery is not well visualized. Venous: The inferior vena cava appears normal in size. Measurements Chambers 2D Name Value Normal Range IVSd (2D) 0.83 cm (0.6 - 1.1) LVPWd (2D) 0.83 cm (0.6 - 1.1) LVIDd (2D) 3.88 cm (3.7 - 5.6) LVIDs (2D) 2.46 cm (2 - 3.8) LV FS (2D) 36.52 % - EF Teichholz (2D) 66.97 % - Ao root diameter (2D) 3.47 cm (2 - 3.7) Volumes/Mass Name Value Normal Range LA ESV SP 4CH (A/L) 22.4 ml - LA ESV SP 2CH (A/L) 22.89 ml - LA ESV BP (A/L) 23.06 ml - LA ESV SP 4CH (MOD) 21.09 ml - LA ESV SP 2CH (MOD) 22.44 ml - Diastolic/Systolic Function Name Value Normal Range MV E-wave Vmax 0.48 m/sec - MV deceleration time 156.3 msec - MV A-wave Vmax 0.59 m/sec - MV E:A ratio 0.81 ratio - Aortic Valve Name Value Normal Range AV Vmax 0.97 m/sec - AV VTI 14.49 cm - AV peak gradient 3.73 mmHg - AV mean gradient 1.89 mmHg - LVOT diameter 2.09 cm - LVOT Vmax 0.72 m/sec - LVOT VTI 10.21 cm - LVOT peak gradient 2.05 mmHg - LVOT mean gradient 1.03 mmHg - SV LVOT 35.17 ml - INNA (continuity Vmax) 2.55 cm2 - INNA (continuity VTI) 2.43 cm2 - Tricuspid Valve Name Value Normal Range TV E-wave Vmax 0.37 m/sec - Pulmonic Valve/Qp:Qs Name Value Normal Range PV Vmax 0.72 m/sec - PV peak gradient 2.06 mmHg - RVOT Vmax 0.85 m/sec - RVOT VTI 9.89 cm - RVOT peak gradient 2.9 mmHg - PV acceleration time 72.31 msec - Cantor/IV: Voiding Method Urinal IV Catheter Type [Right Wrist] INT / Saline Lock IV Catheter Type [Right Upper Peripheral IV arm] IV Catheter Type [Right CVL Internal Jugular] IV Catheter Type [Right Peripheral IV Forearm] IV Catheter Type [Left Forearm INT / Saline Lock ] IV Catheter Type [Left Wrist] INT / Saline Lock IV Catheter Type [Right Hand] INT / Saline Lock IV Catheter Type [Left Hand] INT / Saline Lock IV Catheter Type [Left Peripheral IV Antecubital] Active Medications - Current Medications Current Medications: Generic Name Dose Route Start Last Admin Trade Name Freq PRN Reason Stop Dose Admin Acetaminophen 650 mg 08/07/20 10:06 08/13/20 16:05 Acetaminophen 325 Mg Tab PO 650 mg Q4H PRN Administration Pain, Mild (1-3) Bisacodyl 10 mg 07/14/20 11:00 Bisacodyl 10 Mg Rect Supp ID BID PRN Laxative Effect Enoxaparin Sodium 40 mg 07/29/20 22:00 08/22/20 22:55 Enoxaparin 40 Mg/0.4 Ml Inj SUB-Q 40 mg QDAY@2200 [facility] Administration Protocol Folic Acid 1 mg 05/09/20 15:36 08/22/20 09:17 Folic Acid 1 Mg Tab PO 1 mg QDAY DESIRE Administration Guaifenesin 600 mg 07/19/20 23:00 08/22/20 22:55 Guaifenesin Er 600 Mg Tab PO 600 mg BID [facility] Administration Hydrophilic Ointment 1 applic 05/21/20 20:33 Lip Therapy Vaseline TP Q2HR PRN Dry Lips Insulin Human Lispro 0 unit 07/31/20 07:30 08/22/20 22:55 Insulin Lispro 100 Unit/Ml SUB-Q Not Given ACHS [facility] Protocol Lansoprazole 30 mg 06/28/20 10:00 08/22/20 09:17 Lansoprazole 30 Mg Solutab FEEDTUBE 30 mg QDAY DESIRE Administration Metoprolol Tartrate 5 mg 07/02/20 17:17 08/13/20 14:44 Metoprolol Tartrate 5 Mg/5 Ml Inj IV 5 mg Q6HR PRN Administration Tachyarrhythmias Metoprolol Tartrate 25 mg 08/12/20 12:00 08/22/20 22:55 Metoprolol Tartrate 25 Mg Tab PO 25 mg BID DESIRE Administration Multi-Ingred Cream/Lotion/Oil/Oint 1 applic 05/21/20 20:33 Mineral Oil/Petrolatum, White Ophth Oint 3.5 Gm OU Q4HR PRN Dry Eye(s) Olanzapine 5 mg 07/17/20 22:00 08/22/20 22:55 Olanzapine 5 Mg Tab PO 5 mg QHS DESIRE Administration Phenobarbital 32.4 mg 07/04/20 22:00 08/22/20 22:55 Phenobarbital 32.4 Mg Tab PO 32.4 mg BID DESIRE Administration Pseudoephedrine/Acetam/Chlorphenir 10 ml 08/18/20 15:45 08/22/20 23:49 Guaifenesin/Codeine 100-10mg Oral Liqd 5 Ml PO 10 ml Q4H PRN Administration Cough Quetiapine Fumarate 200 mg 07/16/20 10:00 08/22/20 09:17 Quetiapine 200 Mg Tab PO 200 mg QAM DESIRE Administration Senna 17.2 mg 07/14/20 11:00 08/03/20 16:46 Sennosides 8.6 Mg Tab PO 8.6 mg BID PRN Administration Laxative Effect Nutrition/Malnutrition Assess - Dietary Evaluation Nutrition/Malnutrition Findings: Nutrition Notes Start: 05/17/20 14:10 Freq: Status: Active Protocol: Document 08/18/20 12:39 CW (Rec: 08/18/20 12:53 CW [id number]) Nutrition Notes Initial or Follow up Reassessment Current Diagnosis Acute Kidney Injury,Decubitus( Pressure Ulcer),Sepsis, Respiratory Failure Other Pertinent Diagnosis Bilat pneu, COVID-19 (-), Colonic pseudoobstuction, EtOH dependence Current Diet Regular diet Labs/Tests Reviewed Pertinent Medications Reviewed Height 6 ft Weight 99.5 kg Usual Body Weight 118 kg [place] Body Weight (kg) 80.90 BMI 29.7 Weight change and time frame Weight gain noted Weight Status Overweight Subjective/Other Information F/u for intakes, Sammy and ONS tolerance. Pt reports consuming 100% of meals and ONS. R/O good appetite. Pt denies N/V/D/C. Percent of energy/protein needs met: 100%/100% Burn Absent Trauma Absent GI Symptoms None Current % PO Good (75-100%) Minimum of two criteria Yes Interpretation of Weight Loss (severe) >5% in 1 month Muscle Mass Mild Depletion (non-severe) #3 Nutrition Diagnosis Malnutrition Diagnosis Progress(for reassessment Continues documentation) #2 Nutrition Diagnosis Increased nutrient needs ( specify in comment below) Diagnosis Progress(for reassessment Continues documentation) Is patient on ventilator? No Is Patient Ambulatory and/or Out of Bed No REE-(Miner-St. Jeor-confined to bed) 2269.308 Kcal/Kg value to use for calculation 21 Approximate Energy Requirements Using 0 kcal/Kg Calculation Used for Recommendations Kcal/kg Additional Notes Protein: 108-135 g (1.2-1.5 g/ kg AdBW 90 kg) Fluid: 1ml/kcal Nutrition Intervention Change Diet Order: Continue diet Add Supplement/Snack (indicate name/kcal Ensure High Protein daily /protein ) Sammy BID Provides kCal: 350 Provides Protein (gm) 21 Goal #1 Meet at least 75% protein and energy needs via PO Goal #2 ONS tolerance Goal #3 Intake of Sammy BID Anticipated Discharge Needs: Regular dier, Sammy BID and Ensure High Protein until wound healed Follow-Up By: 08/25/20 Additional Comments F/u stable intakes, ONS and Sammy tolerance/intake
[2020-08-23] MEDS: INSULIN LISPRO 100 UNIT/ML SUB-Q SCH ×4 (09:47→22:53)
[2020-08-23] MEDS: METOPROLOL TARTRATE 25 MG TAB PO SCH ×2 (10:26→22:39)
[2020-08-23] MEDS: LANSOPRAZOLE 30 MG SOLUTAB FEEDTUBE SCH (10:39)
[2020-08-23] MEDS: QUEtiapine 200 MG TAB PO SCH (10:39)
[2020-08-23] MEDS: guaiFENesin ER 600 MG TAB PO SCH ×2 (10:40→22:38)
[2020-08-23] MEDS: PHENobarbital 32.4 MG TAB PO SCH ×2 (10:40→22:38)
[2020-08-23] MEDS: FOLIC ACID 1 MG TAB PO SCH (10:40)
[2020-08-23] MEDS ORDERED: ONDANSETRON 4 MG/2 ML INJ IV SCH (12:00)
[2020-08-23] MEDS ORDERED: ONDANSETRON 4 MG/2 ML INJ IV PRN (13:10)
[2020-08-23] MEDS: METOPROLOL TARTRATE 5 MG/5 ML INJ IV PRN (13:57)
[2020-08-23] MEDS: ACETAMINOPHEN 325 MG TAB PO PRN (22:37)
[2020-08-23] MEDS: guaiFENesin/CODEINE 100-10MG ORAL LIQD 5 ML PO PRN (22:37)
[2020-08-23] MEDS: ENOXAPARIN 40 MG/0.4 ML INJ SUB-Q SCH (22:38)
[2020-08-24] MEDS: INSULIN LISPRO 100 UNIT/ML SUB-Q SCH ×4 (07:30→22:19)
[2020-08-24] MEDS: METOPROLOL TARTRATE 25 MG TAB PO SCH ×2 (09:51→22:11)
[2020-08-24] MEDS: LANSOPRAZOLE 30 MG SOLUTAB FEEDTUBE SCH (09:51)
[2020-08-24] MEDS: guaiFENesin ER 600 MG TAB PO SCH ×2 (09:51→22:11)
[2020-08-24] MEDS: PHENobarbital 32.4 MG TAB PO SCH ×2 (09:51→22:12)
[2020-08-24] MEDS: FOLIC ACID 1 MG TAB PO SCH (09:51)
[2020-08-24] MEDS: QUEtiapine 200 MG TAB PO SCH (09:51)
--- NOTE | 2020-08-24 12:09 | Progress Note ---
Assessment and Plan Patient awake and resting on 4 litres O2 and O2 saturation running 97%. No acute respiratory distress. Talking on the phone. BIPAP standby in the room. No complaint of shortness of breath, chest pain or cough at rest. Patient afebrile and has no leukocytosis. Patients D dimer 1887. 82. Ferritin 1496. LDH 705. C reactive protein 3.1 Chest xray 05/17/20 reported Persistent diffuse patchy bilateral airspace disease. Apparent interval worsening Repeat chest xray 07/19/20 reported Bilateral pulmonary opacities persist. No pneumothorax. Patient finished course of REMDESIVIR, ceftrioxane and zithromax . Chest xray done to day 07/21/20 reported Stable diffuse mild airspace disease bilaterally. Patient finished course of cefepime. Patient has CTA of chest reported No PE. reported extensive bilateral pulmonary infiltrates. Patient is on ,and S/C Lovenox and Prevacid. Patients repeat chest xray PA and lateral 08/11/20 reported Bilateral lung opacities appear unchanged since the exam 2 days ago. No consolidation, pleural effusion or pneumothorax has developed. Patients ABGs On FIO2 50% PH 7.43 PCO2 51 PO2 85 HCO3 34 O2 saturation 99%. Based on present and previous ABgs results, Patient is candidate for home O2. Based on present and previous ABgs results, Patient is candidate for home O2. Patients condition unchanged. Recommend physical therapy and rehabilitation. - Patient Problems (1) Acute respiratory failure due to COVID-19 Current Visit: Yes Status: Acute Plan to address problem: Patient presently resting 4 litres O2. O2 saturation 97%. BIPAP stand by in the room. Convert aerosol treatments to metered dose inhalers Continue S/C Lovenox. Continue prevacid. Patient finished course of REMDESIVIR, Ceftrioxana and zithromax and cefepime and prednisone. (2) Bilateral pneumonia Current Visit: Yes Status: Acute Plan to address problem: Patient was on cefetrioxane, zithromax and cefepime. (3) Acute kidney injury (SEN) with acute tubular necrosis (ATN) Current Visit: Yes Status: Acute Plan to address problem: Management as per nephrology. (4) Alcohol dependence Current Visit: Yes Status: Acute Qualifiers: Substance use status: uncomplicated Qualified Code(s): F10.20 - Alcohol dependence, uncomplicated Plan to address problem: Management as per primary care. (5) Elevated liver function tests Current Visit: Yes Status: Acute Plan to address problem: Liver enzymes elevated either from his alcoholic abuse or from COVID 19 infection. Subjective Date of service: 08/24/20 Principal diagnosis: Ac hypoxemic resp failure; COVID-19; Severe Sepsis; Shaggy PNA; Alcohol Abuse Interval history: Patient awake and resting on 4 litres O2 and O2 saturation running 97%. No acute respiratory distress. Talking on the phone. BIPAP standby in the room. No complaint of shortness of breath, chest pain or cough at rest. Patient afebrile and has no leukocytosis. Patients D dimer 1887. 82. Ferritin 1496. LDH 705. C reactive protein 3.1 Chest xray 05/17/20 reported Persistent diffuse patchy bilateral airspace disease. Apparent interval worsening Repeat chest xray 07/19/20 reported Bilateral pulmonary opacities persist. No pneumothorax. Patient finished course of REMDESIVIR, ceftrioxane and zithromax . Chest xray done to day 07/21/20 reported Stable diffuse mild airspace disease bilaterally. Patient finished course of cefepime. Patient has CTA of chest reported No PE. reported extensive bilateral pulmonary infiltrates. Patient is on ,and S/C Lovenox and Prevacid. Patients repeat chest xray PA and lateral 08/11/20 reported Bilateral lung opacities appear unchanged since the exam 2 days ago. No consolidation, pleural effusion or pneumothorax has developed. Patients ABGs On FIO2 50% PH 7.43 PCO2 51 PO2 85 HCO3 34 O2 saturation 99%. Based on present and previous ABgs results, Patient is candidate for home O2. Patients condition unchanged. Recommend physical therapy and rehabilitation. . Objective Vital Signs - 12hr 08/24/20 08/24/20 08/24/20 04:20 07:27 09:34 Temperature 97.7 F 98.0 F Pulse Rate 87 94 H Respiratory 18 18 Rate Blood Pressure 108/77 103/66 O2 Sat by Pulse 97 96 97 Oximetry 08/24/20 11:31 Temperature 98.6 F Pulse Rate 127 H Respiratory 18 Rate Blood Pressure 110/72 O2 Sat by Pulse 87 Oximetry Constitutional: no acute distress, alert Eyes: non-icteric ENT: oropharynx moist, other (extubated) Neck: supple, no JVD Effort: mildly labored Ascultation: Bilateral: diminished breath sounds, rhonchi (scant bases), other (r. chest tube) Percussion: Bilateral: not dull Cardiovascular: regular rate and rhythm, other (No R/M) Gastrointestinal: normoactive bowel sounds, soft, non-tender, non-distended (protuberant) Integumentary: normal Extremities: no cyanosis, no edema, pulses normal, no ischemia or petechiae Neurologic: non-focal exam (non focal grossly; weak), pupils equal and round, CN II-XII normal, other (weak) Psychiatric: mood appropriate, affect normal CBC and BMP: 08/22/20 05:11 08/23/20 04:39 ABG, PT/INR, D-dimer: ABG ABG pH 7.437 (7.320-7.450) 08/11/20 18:43 POC ABG pCO2 51.0 mmHg (32.0-48.0) H 08/11/20 18:43 ABG pCO2 53.1 mm Hg 07/08/20 Unknown POC ABG pO2 84.9 mmHg (83-108) 08/11/20 18:43 ABG pO2 75.3 mm Hg (80.0-90.0) L 07/08/20 Unknown POC ABG HCO3 33.6 08/11/20 18:43 ABG O2 Saturation 96.5 % (95.0-99.0) 07/08/20 Unknown PT/INR, D-dimer PT 11.8 Sec. (12.2-14.9) L 06/22/20 14:29 INR 0.88 (0.87-1.13) 06/22/20 14:29 D-Dimer 1887.82 ng/mlDDU (0-234) H 05/20/20 08:16 Abnormal lab findings: Abnormal Labs 05/09/20 05/09/20 05/09/20 12:59 12:59 12:59 WBC 11.8 H RBC Hgb Hct MCV 96 H MCH 34 H MCHC 35 H RDW Lymph % (Auto) 6.9 L [place] % (Auto) Lymph # (Auto) 0.8 L [place] # (Auto) Baso # (Auto) Seg Neutrophils % 87.5 H Seg Neuts % (Manual) Lymphocytes % (Manual) Nucleated RBC % Seg Neutrophils # 10.3 H Seg Neutrophils # Man Lymphocytes # (Manual) Monocytes # (Manual) Eosinophils # (Manual) PT INR APTT D-Dimer Heparin Anti-Xa Level ABG pH POC ABG pCO2 POC ABG pO2 ABG pO2 ABG HCO3 ABG O2 Saturation ABG Base Excess ABG Hemoglobin ABG Oxyhemoglobin ABG Sodium ABG Potassium ABG Chloride ABG Glucose Oxyhemoglobin Carboxyhemoglobin Sodium 130 L Potassium 3.5 L Chloride 86.4 L Carbon Dioxide BUN 33 H Creatinine 2.3 H Glucose 156 H POC Glucose Lactic Acid Calcium Phosphorus Magnesium Ferritin Total Bilirubin 3.40 H Direct Bilirubin 1.7 H AST 385 H ALT 134 H Alkaline Phosphatase Lactate Dehydrogenase C-Reactive Protein Total Protein Albumin 3.0 L Triglycerides Lipase Arterial Blood Glucose Arterial Blood Ionized Calcium Urine WBC (Auto) Coronavirus (PCR) SARS-CoV-2 IgG Ab Crossmatch 05/09/20 05/09/20 05/09/20 12:59 12:59 12:59 WBC RBC Hgb Hct MCV MCH MCHC RDW Lymph % (Auto) [place] % (Auto) Lymph # (Auto) [place] # (Auto) Baso # (Auto) Seg Neutrophils % Seg Neuts % (Manual) Lymphocytes % (Manual) Nucleated RBC % Seg Neutrophils # Seg Neutrophils # Man Lymphocytes # (Manual) Monocytes # (Manual) Eosinophils # (Manual) PT INR APTT D-Dimer 3242.51 H Heparin Anti-Xa Level ABG pH POC ABG pCO2 POC ABG pO2 ABG pO2 ABG HCO3 ABG O2 Saturation ABG Base Excess ABG Hemoglobin ABG Oxyhemoglobin ABG Sodium ABG Potassium ABG Chloride ABG Glucose Oxyhemoglobin Carboxyhemoglobin Sodium Potassium Chloride Carbon Dioxide BUN Creatinine Glucose 158 H POC Glucose Lactic Acid 3.50 H* Calcium Phosphorus Magnesium Ferritin Total Bilirubin Direct Bilirubin AST ALT Alkaline Phosphatase Lactate Dehydrogenase 2166 H C-Reactive Protein 39.00 H Total Protein Albumin Triglycerides Lipase Arterial Blood Glucose Arterial Blood Ionized Calcium Urine WBC (Auto) Coronavirus (PCR) SARS-CoV-2 IgG Ab Crossmatch 05/09/20 05/09/20 05/09/20 12:59 14:20 14:20 WBC RBC Hgb Hct MCV MCH MCHC RDW Lymph % (Auto) [place] % (Auto) Lymph # (Auto) [place] # (Auto) Baso # (Auto) Seg Neutrophils % Seg Neuts % (Manual) Lymphocytes % (Manual) Nucleated RBC % Seg Neutrophils # Seg Neutrophils # Man Lymphocytes # (Manual) Monocytes # (Manual) Eosinophils # (Manual) PT INR APTT D-Dimer 2861.78 H Heparin Anti-Xa Level ABG pH POC ABG pCO2 POC ABG pO2 ABG pO2 ABG HCO3 ABG O2 Saturation ABG Base Excess ABG Hemoglobin ABG Oxyhemoglobin ABG Sodium ABG Potassium ABG Chloride ABG Glucose Oxyhemoglobin Carboxyhemoglobin Sodium Potassium Chloride Carbon Dioxide BUN Creatinine Glucose POC Glucose Lactic Acid 2.20 H* Calcium Phosphorus Magnesium Ferritin 33767.0 H Total Bilirubin Direct Bilirubin AST ALT Alkaline Phosphatase Lactate Dehydrogenase C-Reactive Protein Total Protein Albumin Triglycerides Lipase Arterial Blood Glucose Arterial Blood Ionized Calcium Urine WBC (Auto) Coronavirus (PCR) SARS-CoV-2 IgG Ab Crossmatch 05/09/20 05/09/20 05/09/20 14:20 14:20 15:56 WBC RBC Hgb Hct MCV MCH MCHC RDW Lymph % (Auto) [place] % (Auto) Lymph # (Auto) [place] # (Auto) Baso # (Auto) Seg Neutrophils % Seg Neuts % (Manual) Lymphocytes % (Manual) Nucleated RBC % Seg Neutrophils # Seg Neutrophils # Man Lymphocytes # (Manual) Monocytes # (Manual) Eosinophils # (Manual) PT INR APTT D-Dimer Heparin Anti-Xa Level ABG pH POC ABG pCO2 POC ABG pO2 57.3 L ABG pO2 ABG HCO3 ABG O2 Saturation ABG Base Excess ABG Hemoglobin ABG Oxyhemoglobin 86.3 L ABG Sodium 129.9 L ABG Potassium ABG Chloride ABG Glucose 146 H Oxyhemoglobin Carboxyhemoglobin Sodium Potassium Chloride Carbon Dioxide BUN Creatinine Glucose 143 H POC Glucose Lactic Acid Calcium Phosphorus Magnesium Ferritin 71836.0 H Total Bilirubin Direct Bilirubin AST ALT Alkaline Phosphatase Lactate Dehydrogenase 1953 H C-Reactive Protein 33.50 H Total Protein Albumin Triglycerides Lipase Arterial Blood Glucose 146 H Arterial Blood Ionized Calcium 3.9 L Urine WBC (Auto) Coronavirus (PCR) SARS-CoV-2 IgG Ab Crossmatch 05/10/20 05/10/20 05/10/20 10:32 10:32 18:50 WBC 15.4 H RBC Hgb Hct MCV 97 H MCH 33 H MCHC RDW 13.1 L Lymph % (Auto) [place] % (Auto) Lymph # (Auto) [place] # (Auto) Baso # (Auto) Seg Neutrophils % Seg Neuts % (Manual) 89.0 H Lymphocytes % (Manual) 8.0 L Nucleated RBC % Seg Neutrophils # Seg Neutrophils # Man 13.7 H Lymphocytes # (Manual) Monocytes # (Manual) Eosinophils # (Manual) PT INR APTT D-Dimer Heparin Anti-Xa Level ABG pH POC ABG pCO2 POC ABG pO2 ABG pO2 ABG HCO3 ABG O2 Saturation ABG Base Excess ABG Hemoglobin ABG Oxyhemoglobin ABG Sodium ABG Potassium ABG Chloride ABG Glucose Oxyhemoglobin Carboxyhemoglobin Sodium 136 L Potassium Chloride 97.4 L Carbon Dioxide BUN 37 H Creatinine 1.7 H Glucose 209 H POC Glucose Lactic Acid Calcium Phosphorus Magnesium Ferritin > 2000.0 H Total Bilirubin Direct Bilirubin AST ALT Alkaline Phosphatase Lactate Dehydrogenase C-Reactive Protein Total Protein Albumin Triglycerides Lipase Arterial Blood Glucose Arterial Blood Ionized Calcium Urine WBC (Auto) Coronavirus (PCR) SARS-CoV-2 IgG Ab Crossmatch 05/10/20 05/10/20 05/10/20 18:50 19:00 Unknown WBC RBC Hgb Hct MCV MCH MCHC RDW Lymph % (Auto) [place] % (Auto) Lymph # (Auto) [place] # (Auto) Baso # (Auto) Seg Neutrophils % Seg Neuts % (Manual) Lymphocytes % (Manual) Nucleated RBC % Seg Neutrophils # Seg Neutrophils # Man Lymphocytes # (Manual) Monocytes # (Manual) Eosinophils # (Manual) PT INR APTT D-Dimer > 85672 H Heparin Anti-Xa Level ABG pH POC ABG pCO2 POC ABG pO2 ABG pO2 ABG HCO3 ABG O2 Saturation ABG Base Excess ABG Hemoglobin ABG Oxyhemoglobin ABG Sodium ABG Potassium ABG Chloride ABG Glucose Oxyhemoglobin Carboxyhemoglobin Sodium Potassium Chloride Carbon Dioxide BUN Creatinine Glucose POC Glucose Lactic Acid Calcium Phosphorus Magnesium Ferritin Total Bilirubin Direct Bilirubin AST ALT Alkaline Phosphatase Lactate Dehydrogenase 1879 H C-Reactive Protein 24.80 H Total Protein Albumin Triglycerides Lipase Arterial Blood Glucose Arterial Blood Ionized Calcium Urine WBC (Auto) 11.0 H Coronavirus (PCR) SARS-CoV-2 IgG Ab Crossmatch 05/10/20 05/11/20 05/11/20 Unknown 07:30 07:30 WBC RBC Hgb Hct MCV MCH MCHC RDW Lymph % (Auto) [place] % (Auto) Lymph # (Auto) [place] # (Auto) Baso # (Auto) Seg Neutrophils % Seg Neuts % (Manual) Lymphocytes % (Manual) Nucleated RBC % Seg Neutrophils # Seg Neutrophils # Man Lymphocytes # (Manual) Monocytes # (Manual) Eosinophils # (Manual) PT INR APTT D-Dimer > 2000 H Heparin Anti-Xa Level ABG pH POC ABG pCO2 POC ABG pO2 ABG pO2 ABG HCO3 ABG O2 Saturation ABG Base Excess ABG Hemoglobin ABG Oxyhemoglobin ABG Sodium ABG Potassium ABG Chloride ABG Glucose Oxyhemoglobin Carboxyhemoglobin Sodium Potassium Chloride 96.3 L Carbon Dioxide BUN 36 H Creatinine Glucose 161 H POC Glucose Lactic Acid Calcium 8.3 L Phosphorus Magnesium Ferritin Total Bilirubin 1.50 H Direct Bilirubin 0.6 H AST 178 H ALT 111 H Alkaline Phosphatase Lactate Dehydrogenase C-Reactive Protein Total Protein Albumin 3.0 L Triglycerides Lipase Arterial Blood Glucose Arterial Blood Ionized Calcium Urine WBC (Auto) Coronavirus (PCR) Positive A SARS-CoV-2 IgG Ab Crossmatch 05/11/20 05/11/20 05/11/20 07:30 07:30 07:30 WBC RBC Hgb Hct MCV MCH MCHC RDW Lymph % (Auto) [place] % (Auto) Lymph # (Auto) [place] # (Auto) Baso # (Auto) Seg Neutrophils % Seg Neuts % (Manual) Lymphocytes % (Manual) Nucleated RBC % Seg Neutrophils # Seg Neutrophils # Man Lymphocytes # (Manual) Monocytes # (Manual) Eosinophils # (Manual) PT INR APTT D-Dimer Heparin Anti-Xa Level ABG pH POC ABG pCO2 POC ABG pO2 ABG pO2 ABG HCO3 ABG O2 Saturation ABG Base Excess ABG Hemoglobin ABG Oxyhemoglobin ABG Sodium ABG Potassium ABG Chloride ABG Glucose Oxyhemoglobin Carboxyhemoglobin Sodium Potassium Chloride Carbon Dioxide BUN Creatinine Glucose POC Glucose Lactic Acid Calcium Phosphorus Magnesium Ferritin 33317.0 H Total Bilirubin Direct Bilirubin AST ALT Alkaline Phosphatase Lactate Dehydrogenase 1523 H C-Reactive Protein 12.90 H Total Protein Albumin Triglycerides Lipase Arterial Blood Glucose Arterial Blood Ionized Calcium Urine WBC (Auto) Coronavirus (PCR) SARS-CoV-2 IgG Ab Reactive A Crossmatch 05/13/20 05/13/20 05/15/20 05:20 05:20 08:15 WBC RBC Hgb Hct MCV MCH MCHC RDW Lymph % (Auto) [place] % (Auto) Lymph # (Auto) [place] # (Auto) Baso # (Auto) Seg Neutrophils % Seg Neuts % (Manual) Lymphocytes % (Manual) Nucleated RBC % Seg Neutrophils # Seg Neutrophils # Man Lymphocytes # (Manual) Monocytes # (Manual) Eosinophils # (Manual) PT INR APTT D-Dimer > 67415 H 5318.28 H Heparin Anti-Xa Level ABG pH POC ABG pCO2 POC ABG pO2 ABG pO2 ABG HCO3 ABG O2 Saturation ABG Base Excess ABG Hemoglobin ABG Oxyhemoglobin ABG Sodium ABG Potassium ABG Chloride ABG Glucose Oxyhemoglobin Carboxyhemoglobin Sodium Potassium Chloride Carbon Dioxide 32 H BUN 30 H Creatinine Glucose 156 H POC Glucose Lactic Acid Calcium Phosphorus Magnesium 2.60 H Ferritin Total Bilirubin 1.40 H Direct Bilirubin AST 121 H ALT 119 H Alkaline Phosphatase Lactate Dehydrogenase 957 H C-Reactive Protein 4.00 H Total Protein Albumin 3.0 L Triglycerides Lipase Arterial Blood Glucose Arterial Blood Ionized Calcium Urine WBC (Auto) Coronavirus (PCR) SARS-CoV-2 IgG Ab Crossmatch 05/15/20 05/15/20 05/15/20 08:15 08:15 08:15 WBC 12.4 H RBC Hgb Hct MCV 98 H MCH 33 H MCHC RDW Lymph % (Auto) 9.7 L [place] % (Auto) Lymph # (Auto) [place] # (Auto) Baso # (Auto) Seg Neutrophils % 86.8 H Seg Neuts % (Manual) Lymphocytes % (Manual) Nucleated RBC % Seg Neutrophils # 10.8 H Seg Neutrophils # Man Lymphocytes # (Manual) Monocytes # (Manual) Eosinophils # (Manual) PT INR APTT D-Dimer Heparin Anti-Xa Level ABG pH POC ABG pCO2 POC ABG pO2 ABG pO2 ABG HCO3 ABG O2 Saturation ABG Base Excess ABG Hemoglobin ABG Oxyhemoglobin ABG Sodium ABG Potassium ABG Chloride ABG Glucose Oxyhemoglobin Carboxyhemoglobin Sodium Potassium Chloride 94.8 L Carbon Dioxide 32 H BUN 22 H Creatinine Glucose 115 H POC Glucose Lactic Acid Calcium 8.3 L Phosphorus Magnesium Ferritin 2494.0 H Total Bilirubin Direct Bilirubin AST 73 H ALT 121 H Alkaline Phosphatase Lactate Dehydrogenase 835 H C-Reactive Protein 3.40 H Total Protein 6.1 L Albumin 3.0 L Triglycerides Lipase Arterial Blood Glucose Arterial Blood Ionized Calcium Urine WBC (Auto) Coronavirus (PCR) SARS-CoV-2 IgG Ab Crossmatch 05/17/20 05/17/20 05/17/20 05:50 05:50 05:50 WBC RBC Hgb Hct MCV MCH MCHC RDW Lymph % (Auto) [place] % (Auto) Lymph # (Auto) [place] # (Auto) Baso # (Auto) Seg Neutrophils % Seg Neuts % (Manual) Lymphocytes % (Manual) Nucleated RBC % Seg Neutrophils # Seg Neutrophils # Man Lymphocytes # (Manual) Monocytes # (Manual) Eosinophils # (Manual) PT INR APTT D-Dimer 2911.42 H Heparin Anti-Xa Level ABG pH POC ABG pCO2 POC ABG pO2 ABG pO2 ABG HCO3 ABG O2 Saturation ABG Base Excess ABG Hemoglobin ABG Oxyhemoglobin ABG Sodium ABG Potassium ABG Chloride ABG Glucose Oxyhemoglobin Carboxyhemoglobin Sodium 136 L Potassium Chloride 96.0 L Carbon Dioxide 34 H BUN 22 H Creatinine Glucose 140 H POC Glucose Lactic Acid Calcium Phosphorus Magnesium Ferritin 2082.0 H Total Bilirubin Direct Bilirubin AST ALT 75 H Alkaline Phosphatase Lactate Dehydrogenase 601 H C-Reactive Protein 2.70 H Total Protein Albumin 2.9 L Triglycerides Lipase Arterial Blood Glucose Arterial Blood Ionized Calcium Urine WBC (Auto) Coronavirus (PCR) SARS-CoV-2 IgG Ab Crossmatch 05/17/20 05/18/20 05/20/20 05:50 12:22 08:16 WBC RBC Hgb Hct MCV 98 H MCH 33 H MCHC RDW Lymph % (Auto) 8.0 L [place] % (Auto) Lymph # (Auto) 0.8 L [place] # (Auto) Baso # (Auto) Seg Neutrophils % 89.3 H Seg Neuts % (Manual) Lymphocytes % (Manual) Nucleated RBC % Seg Neutrophils # 8.8 H Seg Neutrophils # Man Lymphocytes # (Manual) Monocytes # (Manual) Eosinophils # (Manual) PT INR APTT D-Dimer 1887.82 H Heparin Anti-Xa Level ABG pH POC ABG pCO2 POC ABG pO2 ABG pO2 ABG HCO3 ABG O2 Saturation ABG Base Excess ABG Hemoglobin ABG Oxyhemoglobin ABG Sodium ABG Potassium ABG Chloride ABG Glucose Oxyhemoglobin Carboxyhemoglobin Sodium Potassium Chloride Carbon Dioxide BUN Creatinine Glucose POC Glucose 178 H Lactic Acid Calcium Phosphorus Magnesium Ferritin Total Bilirubin Direct Bilirubin AST ALT Alkaline Phosphatase Lactate Dehydrogenase C-Reactive Protein Total Protein Albumin Triglycerides Lipase Arterial Blood Glucose Arterial Blood Ionized Calcium Urine WBC (Auto) Coronavirus (PCR) SARS-CoV-2 IgG Ab Crossmatch 05/20/20 05/20/20 05/21/20 08:16 08:16 21:10 WBC RBC Hgb Hct MCV MCH MCHC RDW Lymph % (Auto) [place] % (Auto) Lymph # (Auto) [place] # (Auto) Baso # (Auto) Seg Neutrophils % Seg Neuts % (Manual) Lymphocytes % (Manual) Nucleated RBC % Seg Neutrophils # Seg Neutrophils # Man Lymphocytes # (Manual) Monocytes # (Manual) Eosinophils # (Manual) PT INR APTT D-Dimer Heparin Anti-Xa Level ABG pH 7.483 H POC ABG pCO2 POC ABG pO2 ABG pO2 50.0 L ABG HCO3 27.0 H ABG O2 Saturation 86.2 L ABG Base Excess 3.7 H ABG Hemoglobin ABG Oxyhemoglobin ABG Sodium ABG Potassium ABG Chloride ABG Glucose Oxyhemoglobin 84.2 L Carboxyhemoglobin Sodium Potassium Chloride Carbon Dioxide BUN Creatinine Glucose POC Glucose Lactic Acid Calcium Phosphorus Magnesium Ferritin 1960.0 H Total Bilirubin Direct Bilirubin AST ALT Alkaline Phosphatase Lactate Dehydrogenase 705 H C-Reactive Protein 3.10 H Total Protein Albumin Triglycerides Lipase Arterial Blood Glucose Arterial Blood Ionized Calcium Urine WBC (Auto) Coronavirus (PCR) SARS-CoV-2 IgG Ab Crossmatch 05/22/20 05/22/20 05/22/20 04:01 07:53 07:53 WBC 19.2 H RBC Hgb Hct MCV 98 H MCH 34 H MCHC RDW Lymph % (Auto) [place] % (Auto) Lymph # (Auto) [place] # (Auto) Baso # (Auto) Seg Neutrophils % Seg Neuts % (Manual) 96.0 H Lymphocytes % (Manual) 1.0 L Nucleated RBC % Seg Neutrophils # Seg Neutrophils # Man 18.4 H Lymphocytes # (Manual) 0.2 L Monocytes # (Manual) Eosinophils # (Manual) PT INR APTT D-Dimer Heparin Anti-Xa Level ABG pH POC ABG pCO2 53.8 H POC ABG pO2 125.5 H ABG pO2 ABG HCO3 ABG O2 Saturation ABG Base Excess ABG Hemoglobin ABG Oxyhemoglobin ABG Sodium 131.8 L ABG Potassium 4.8 H ABG Chloride 94.0 L ABG Glucose 163 H Oxyhemoglobin Carboxyhemoglobin Sodium 131 L Potassium Chloride 93.4 L Carbon Dioxide BUN 40 H Creatinine Glucose 176 H POC Glucose Lactic Acid Calcium Phosphorus Magnesium 2.70 H Ferritin Total Bilirubin 1.80 H Direct Bilirubin AST 45 H ALT 116 H Alkaline Phosphatase 181 H Lactate Dehydrogenase C-Reactive Protein Total Protein Albumin 2.6 L Triglycerides Lipase Arterial Blood Glucose 163 H Arterial Blood Ionized Calcium 4.5 L Urine WBC (Auto) Coronavirus (PCR) SARS-CoV-2 IgG Ab Crossmatch 05/23/20 05/24/20 05/24/20 04:17 03:07 04:08 WBC RBC Hgb Hct MCV MCH MCHC RDW Lymph % (Auto) [place] % (Auto) Lymph # (Auto) [place] # (Auto) Baso # (Auto) Seg Neutrophils % Seg Neuts % (Manual) Lymphocytes % (Manual) Nucleated RBC % Seg Neutrophils # Seg Neutrophils # Man Lymphocytes # (Manual) Monocytes # (Manual) Eosinophils # (Manual) PT INR APTT D-Dimer Heparin Anti-Xa Level ABG pH 7.328 L POC ABG pCO2 POC ABG pO2 ABG pO2 72.8 L 73.4 L ABG HCO3 31.0 H 34.0 H ABG O2 Saturation 93.5 L ABG Base Excess 3.5 H 7.7 H ABG Hemoglobin 13.3 L 12.1 L ABG Oxyhemoglobin ABG Sodium ABG Potassium ABG Chloride ABG Glucose Oxyhemoglobin 91.5 L 94.3 L Carboxyhemoglobin Sodium Potassium Chloride Carbon Dioxide BUN Creatinine Glucose POC Glucose 155 H Lactic Acid Calcium Phosphorus Magnesium Ferritin Total Bilirubin Direct Bilirubin AST ALT Alkaline Phosphatase Lactate Dehydrogenase C-Reactive Protein Total Protein Albumin Triglycerides Lipase Arterial Blood Glucose Arterial Blood Ionized Calcium Urine WBC (Auto) Coronavirus (PCR) SARS-CoV-2 IgG Ab Crossmatch 05/24/20 05/24/20 05/24/20 09:33 12:21 17:52 WBC RBC Hgb Hct MCV MCH MCHC RDW Lymph % (Auto) [place] % (Auto) Lymph # (Auto) [place] # (Auto) Baso # (Auto) Seg Neutrophils % Seg Neuts % (Manual) Lymphocytes % (Manual) Nucleated RBC % Seg Neutrophils # Seg Neutrophils # Man Lymphocytes # (Manual) Monocytes # (Manual) Eosinophils # (Manual) PT INR APTT D-Dimer Heparin Anti-Xa Level ABG pH POC ABG pCO2 POC ABG pO2 ABG pO2 ABG HCO3 ABG O2 Saturation ABG Base Excess ABG Hemoglobin ABG Oxyhemoglobin ABG Sodium ABG Potassium ABG Chloride ABG Glucose Oxyhemoglobin Carboxyhemoglobin Sodium Potassium Chloride Carbon Dioxide 34 H D BUN 28 H Creatinine 0.7 L Glucose 168 H POC Glucose 173 H 164 H Lactic Acid Calcium Phosphorus Magnesium Ferritin Total Bilirubin Direct Bilirubin AST ALT Alkaline Phosphatase Lactate Dehydrogenase C-Reactive Protein Total Protein Albumin Triglycerides Lipase Arterial Blood Glucose Arterial Blood Ionized Calcium Urine WBC (Auto) Coronavirus (PCR) SARS-CoV-2 IgG Ab Crossmatch 05/24/20 05/25/20 05/25/20 23:47 04:29 05:46 WBC RBC Hgb Hct MCV MCH MCHC RDW Lymph % (Auto) [place] % (Auto) Lymph # (Auto) [place] # (Auto) Baso # (Auto) Seg Neutrophils % Seg Neuts % (Manual) Lymphocytes % (Manual) Nucleated RBC % Seg Neutrophils # Seg Neutrophils # Man Lymphocytes # (Manual) Monocytes # (Manual) Eosinophils # (Manual) PT INR APTT D-Dimer Heparin Anti-Xa Level ABG pH POC ABG pCO2 68.6 H POC ABG pO2 ABG pO2 ABG HCO3 ABG O2 Saturation ABG Base Excess ABG Hemoglobin ABG Oxyhemoglobin ABG Sodium ABG Potassium 4.7 H ABG Chloride ABG Glucose 226 H Oxyhemoglobin Carboxyhemoglobin Sodium Potassium Chloride Carbon Dioxide BUN Creatinine Glucose POC Glucose 171 H 201 H Lactic Acid Calcium Phosphorus Magnesium Ferritin Total Bilirubin Direct Bilirubin AST ALT Alkaline Phosphatase Lactate Dehydrogenase C-Reactive Protein Total Protein Albumin Triglycerides Lipase Arterial Blood Glucose 226 H Arterial Blood Ionized Calcium Urine WBC (Auto) Coronavirus (PCR) SARS-CoV-2 IgG Ab Crossmatch 05/25/20 05/25/20 05/25/20 08:37 08:37 12:38 WBC 12.0 H RBC 3.64 L Hgb Hct MCV 99 H MCH 33 H MCHC RDW Lymph % (Auto) [place] % (Auto) Lymph # (Auto) [place] # (Auto) Baso # (Auto) Seg Neutrophils % Seg Neuts % (Manual) Lymphocytes % (Manual) Nucleated RBC % Seg Neutrophils # Seg Neutrophils # Man Lymphocytes # (Manual) Monocytes # (Manual) Eosinophils # (Manual) PT INR APTT D-Dimer Heparin Anti-Xa Level ABG pH POC ABG pCO2 POC ABG pO2 ABG pO2 ABG HCO3 ABG O2 Saturation ABG Base Excess ABG Hemoglobin ABG Oxyhemoglobin ABG Sodium ABG Potassium ABG Chloride ABG Glucose Oxyhemoglobin Carboxyhemoglobin Sodium Potassium Chloride 97.3 L Carbon Dioxide 35 H BUN 25 H Creatinine 0.7 L Glucose 191 H POC Glucose 182 H Lactic Acid Calcium Phosphorus Magnesium Ferritin Total Bilirubin Direct Bilirubin AST ALT Alkaline Phosphatase Lactate Dehydrogenase C-Reactive Protein Total Protein Albumin Triglycerides Lipase Arterial Blood Glucose Arterial Blood Ionized Calcium Urine WBC (Auto) Coronavirus (PCR) SARS-CoV-2 IgG Ab Crossmatch 05/25/20 05/26/20 05/26/20 18:16 00:06 04:50 WBC RBC Hgb Hct MCV MCH MCHC RDW Lymph % (Auto) [place] % (Auto) Lymph # (Auto) [place] # (Auto) Baso # (Auto) Seg Neutrophils % Seg Neuts % (Manual) Lymphocytes % (Manual) Nucleated RBC % Seg Neutrophils # Seg Neutrophils # Man Lymphocytes # (Manual) Monocytes # (Manual) Eosinophils # (Manual) PT INR APTT D-Dimer Heparin Anti-Xa Level ABG pH POC ABG pCO2 POC ABG pO2 ABG pO2 221.5 H ABG HCO3 40.4 H ABG O2 Saturation 99.3 H ABG Base Excess 12.8 H ABG Hemoglobin 10.4 L ABG Oxyhemoglobin ABG Sodium ABG Potassium ABG Chloride ABG Glucose Oxyhemoglobin Carboxyhemoglobin Sodium Potassium Chloride Carbon Dioxide BUN Creatinine Glucose POC Glucose 176 H 152 H Lactic Acid Calcium Phosphorus Magnesium Ferritin Total Bilirubin Direct Bilirubin AST ALT Alkaline Phosphatase Lactate Dehydrogenase C-Reactive Protein Total Protein Albumin Triglycerides Lipase Arterial Blood Glucose Arterial Blood Ionized Calcium Urine WBC (Auto) Coronavirus (PCR) SARS-CoV-2 IgG Ab Crossmatch 05/26/20 05/26/20 05/26/20 06:11 07:51 07:51 WBC 13.4 H RBC 3.64 L Hgb Hct MCV 98 H MCH 33 H MCHC RDW Lymph % (Auto) [place] % (Auto) Lymph # (Auto) [place] # (Auto) Baso # (Auto) Seg Neutrophils % Seg Neuts % (Manual) Lymphocytes % (Manual) Nucleated RBC % Seg Neutrophils # Seg Neutrophils # Man Lymphocytes # (Manual) Monocytes # (Manual) Eosinophils # (Manual) PT INR APTT D-Dimer Heparin Anti-Xa Level ABG pH POC ABG pCO2 POC ABG pO2 ABG pO2 ABG HCO3 ABG O2 Saturation ABG Base Excess ABG Hemoglobin ABG Oxyhemoglobin ABG Sodium ABG Potassium ABG Chloride ABG Glucose Oxyhemoglobin Carboxyhemoglobin Sodium Potassium Chloride 96.6 L Carbon Dioxide 39 H BUN 29 H Creatinine 0.7 L Glucose 174 H POC Glucose 165 H Lactic Acid Calcium Phosphorus Magnesium Ferritin Total Bilirubin Direct Bilirubin AST ALT Alkaline Phosphatase Lactate Dehydrogenase C-Reactive Protein Total Protein Albumin Triglycerides Lipase Arterial Blood Glucose Arterial Blood Ionized Calcium Urine WBC (Auto) Coronavirus (PCR) SARS-CoV-2 IgG Ab Crossmatch 05/26/20 05/27/20 05/27/20 23:23 03:43 05:29 WBC RBC Hgb Hct MCV MCH MCHC RDW Lymph % (Auto) [place] % (Auto) Lymph # (Auto) [place] # (Auto) Baso # (Auto) Seg Neutrophils % Seg Neuts % (Manual) Lymphocytes % (Manual) Nucleated RBC % Seg Neutrophils # Seg Neutrophils # Man Lymphocytes # (Manual) Monocytes # (Manual) Eosinophils # (Manual) PT INR APTT D-Dimer Heparin Anti-Xa Level ABG pH 7.480 H POC ABG pCO2 52.4 H POC ABG pO2 61.4 L ABG pO2 ABG HCO3 ABG O2 Saturation ABG Base Excess ABG Hemoglobin ABG Oxyhemoglobin ABG Sodium 134.9 L ABG Potassium ABG Chloride 95.0 L ABG Glucose 221 H Oxyhemoglobin Carboxyhemoglobin Sodium Potassium Chloride Carbon Dioxide BUN Creatinine Glucose POC Glucose 169 H 227 H Lactic Acid Calcium Phosphorus Magnesium Ferritin Total Bilirubin Direct Bilirubin AST ALT Alkaline Phosphatase Lactate Dehydrogenase C-Reactive Protein Total Protein Albumin Triglycerides Lipase Arterial Blood Glucose 221 H Arterial Blood Ionized Calcium 4.5 L Urine WBC (Auto) Coronavirus (PCR) SARS-CoV-2 IgG Ab Crossmatch 05/27/20 05/27/20 05/27/20 07:19 12:18 13:50 WBC RBC Hgb Hct MCV MCH MCHC RDW Lymph % (Auto) [place] % (Auto) Lymph # (Auto) [place] # (Auto) Baso # (Auto) Seg Neutrophils % Seg Neuts % (Manual) Lymphocytes % (Manual) Nucleated RBC % Seg Neutrophils # Seg Neutrophils # Man Lymphocytes # (Manual) Monocytes # (Manual) Eosinophils # (Manual) PT INR APTT D-Dimer Heparin Anti-Xa Level ABG pH POC ABG pCO2 POC ABG pO2 ABG pO2 ABG HCO3 ABG O2 Saturation ABG Base Excess ABG Hemoglobin ABG Oxyhemoglobin ABG Sodium ABG Potassium ABG Chloride ABG Glucose Oxyhemoglobin Carboxyhemoglobin Sodium Potassium Chloride Carbon Dioxide BUN Creatinine Glucose POC Glucose 114 H 148 H Lactic Acid Calcium Phosphorus Magnesium Ferritin Total Bilirubin Direct Bilirubin AST ALT Alkaline Phosphatase Lactate Dehydrogenase C-Reactive Protein Total Protein Albumin Triglycerides 247 H Lipase Arterial Blood Glucose Arterial Blood Ionized Calcium Urine WBC (Auto) Coronavirus (PCR) SARS-CoV-2 IgG Ab Crossmatch 05/28/20 05/28/20 05/28/20 00:13 04:16 05:22 WBC RBC Hgb Hct MCV MCH MCHC RDW Lymph % (Auto) [place] % (Auto) Lymph # (Auto) [place] # (Auto) Baso # (Auto) Seg Neutrophils % Seg Neuts % (Manual) Lymphocytes % (Manual) Nucleated RBC % Seg Neutrophils # Seg Neutrophils # Man Lymphocytes # (Manual) Monocytes # (Manual) Eosinophils # (Manual) PT INR APTT D-Dimer Heparin Anti-Xa Level ABG pH POC ABG pCO2 64.4 H POC ABG pO2 60.5 L ABG pO2 ABG HCO3 ABG O2 Saturation ABG Base Excess ABG Hemoglobin ABG Oxyhemoglobin ABG Sodium ABG Potassium ABG Chloride 95.0 L ABG Glucose 209 H Oxyhemoglobin Carboxyhemoglobin Sodium Potassium Chloride Carbon Dioxide BUN Creatinine Glucose POC Glucose 155 H 186 H Lactic Acid Calcium Phosphorus Magnesium Ferritin Total Bilirubin Direct Bilirubin AST ALT Alkaline Phosphatase Lactate Dehydrogenase C-Reactive Protein Total Protein Albumin Triglycerides Lipase Arterial Blood Glucose 209 H Arterial Blood Ionized Calcium Urine WBC (Auto) Coronavirus (PCR) SARS-CoV-2 IgG Ab Crossmatch 05/28/20 05/28/20 05/29/20 12:45 17:39 00:37 WBC RBC Hgb Hct MCV MCH MCHC RDW Lymph % (Auto) [place] % (Auto) Lymph # (Auto) [place] # (Auto) Baso # (Auto) Seg Neutrophils % Seg Neuts % (Manual) Lymphocytes % (Manual) Nucleated RBC % Seg Neutrophils # Seg Neutrophils # Man Lymphocytes # (Manual) Monocytes # (Manual) Eosinophils # (Manual) PT INR APTT D-Dimer Heparin Anti-Xa Level ABG pH POC ABG pCO2 POC ABG pO2 ABG pO2 ABG HCO3 ABG O2 Saturation ABG Base Excess ABG Hemoglobin ABG Oxyhemoglobin ABG Sodium ABG Potassium ABG Chloride ABG Glucose Oxyhemoglobin Carboxyhemoglobin Sodium Potassium Chloride Carbon Dioxide BUN Creatinine Glucose POC Glucose 143 H 164 H 221 H Lactic Acid Calcium Phosphorus Magnesium Ferritin Total Bilirubin Direct Bilirubin AST ALT Alkaline Phosphatase Lactate Dehydrogenase C-Reactive Protein Total Protein Albumin Triglycerides Lipase Arterial Blood Glucose Arterial Blood Ionized Calcium Urine WBC (Auto) Coronavirus (PCR) SARS-CoV-2 IgG Ab Crossmatch 05/29/20 05/29/20 05/29/20 04:15 05:33 12:34 WBC RBC Hgb Hct MCV MCH MCHC RDW Lymph % (Auto) [place] % (Auto) Lymph # (Auto) [place] # (Auto) Baso # (Auto) Seg Neutrophils % Seg Neuts % (Manual) Lymphocytes % (Manual) Nucleated RBC % Seg Neutrophils # Seg Neutrophils # Man Lymphocytes # (Manual) Monocytes # (Manual) Eosinophils # (Manual) PT INR APTT D-Dimer Heparin Anti-Xa Level ABG pH 7.463 H POC ABG pCO2 56.3 H POC ABG pO2 81.2 L ABG pO2 ABG HCO3 ABG O2 Saturation ABG Base Excess ABG Hemoglobin ABG Oxyhemoglobin ABG Sodium ABG Potassium ABG Chloride 96.0 L ABG Glucose 194 H Oxyhemoglobin Carboxyhemoglobin Sodium Potassium Chloride Carbon Dioxide BUN Creatinine Glucose POC Glucose 133 H 221 H Lactic Acid Calcium Phosphorus Magnesium Ferritin Total Bilirubin Direct Bilirubin AST ALT Alkaline Phosphatase Lactate Dehydrogenase C-Reactive Protein Total Protein Albumin Triglycerides Lipase Arterial Blood Glucose 194 H Arterial Blood Ionized Calcium 4.5 L Urine WBC (Auto) Coronavirus (PCR) SARS-CoV-2 IgG Ab Crossmatch 05/29/20 05/30/20 05/30/20 18:07 00:12 05:38 WBC RBC Hgb Hct MCV MCH MCHC RDW Lymph % (Auto) [place] % (Auto) Lymph # (Auto) [place] # (Auto) Baso # (Auto) Seg Neutrophils % Seg Neuts % (Manual) Lymphocytes % (Manual) Nucleated RBC % Seg Neutrophils # Seg Neutrophils # Man Lymphocytes # (Manual) Monocytes # (Manual) Eosinophils # (Manual) PT INR APTT D-Dimer Heparin Anti-Xa Level ABG pH POC ABG pCO2 POC ABG pO2 ABG pO2 ABG HCO3 ABG O2 Saturation ABG Base Excess ABG Hemoglobin ABG Oxyhemoglobin ABG Sodium ABG Potassium ABG Chloride ABG Glucose Oxyhemoglobin Carboxyhemoglobin Sodium Potassium Chloride Carbon Dioxide BUN Creatinine Glucose POC Glucose 162 H 190 H 208 H Lactic Acid Calcium Phosphorus Magnesium Ferritin Total Bilirubin Direct Bilirubin AST ALT Alkaline Phosphatase Lactate Dehydrogenase C-Reactive Protein Total Protein Albumin Triglycerides Lipase Arterial Blood Glucose Arterial Blood Ionized Calcium Urine WBC (Auto) Coronavirus (PCR) SARS-CoV-2 IgG Ab Crossmatch 05/30/20 05/30/20 05/30/20 09:30 11:35 11:54 WBC 12.4 H RBC 3.48 L Hgb 11.3 L Hct 34.6 L MCV 99 H MCH 33 H MCHC RDW Lymph % (Auto) [place] % (Auto) Lymph # (Auto) [place] # (Auto) Baso # (Auto) Seg Neutrophils % Seg Neuts % (Manual) Lymphocytes % (Manual) Nucleated RBC % Seg Neutrophils # Seg Neutrophils # Man Lymphocytes # (Manual) Monocytes # (Manual) Eosinophils # (Manual) PT INR APTT D-Dimer Heparin Anti-Xa Level ABG pH 7.455 H POC ABG pCO2 57.5 H POC ABG pO2 81.5 L ABG pO2 ABG HCO3 ABG O2 Saturation ABG Base Excess ABG Hemoglobin ABG Oxyhemoglobin ABG Sodium ABG Potassium ABG Chloride 96.0 L ABG Glucose 204 H Oxyhemoglobin Carboxyhemoglobin Sodium Potassium Chloride Carbon Dioxide BUN Creatinine Glucose POC Glucose 183 H Lactic Acid Calcium Phosphorus Magnesium Ferritin Total Bilirubin Direct Bilirubin AST ALT Alkaline Phosphatase Lactate Dehydrogenase C-Reactive Protein Total Protein Albumin Triglycerides Lipase Arterial Blood Glucose 204 H Arterial Blood Ionized Calcium Urine WBC (Auto) Coronavirus (PCR) SARS-CoV-2 IgG Ab Crossmatch 05/30/20 05/31/20 05/31/20 18:01 00:10 03:22 WBC RBC Hgb Hct MCV MCH MCHC RDW Lymph % (Auto) [place] % (Auto) Lymph # (Auto) [place] # (Auto) Baso # (Auto) Seg Neutrophils % Seg Neuts % (Manual) Lymphocytes % (Manual) Nucleated RBC % Seg Neutrophils # Seg Neutrophils # Man Lymphocytes # (Manual) Monocytes # (Manual) Eosinophils # (Manual) PT INR APTT D-Dimer Heparin Anti-Xa Level ABG pH POC ABG pCO2 60.4 H POC ABG pO2 71.5 L ABG pO2 ABG HCO3 ABG O2 Saturation ABG Base Excess ABG Hemoglobin ABG Oxyhemoglobin ABG Sodium ABG Potassium ABG Chloride 96.0 L ABG Glucose 169 H Oxyhemoglobin Carboxyhemoglobin Sodium Potassium Chloride Carbon Dioxide BUN Creatinine Glucose POC Glucose 184 H 135 H Lactic Acid Calcium Phosphorus Magnesium Ferritin Total Bilirubin Direct Bilirubin AST ALT Alkaline Phosphatase Lactate Dehydrogenase C-Reactive Protein Total Protein Albumin Triglycerides Lipase Arterial Blood Glucose 169 H Arterial Blood Ionized Calcium 4.5 L Urine WBC (Auto) Coronavirus (PCR) SARS-CoV-2 IgG Ab Crossmatch 05/31/20 05/31/20 05/31/20 05:24 11:18 14:41 WBC RBC Hgb Hct MCV MCH MCHC RDW Lymph % (Auto) [place] % (Auto) Lymph # (Auto) [place] # (Auto) Baso # (Auto) Seg Neutrophils % Seg Neuts % (Manual) Lymphocytes % (Manual) Nucleated RBC % Seg Neutrophils # Seg Neutrophils # Man Lymphocytes # (Manual) Monocytes # (Manual) Eosinophils # (Manual) PT INR APTT D-Dimer Heparin Anti-Xa Level ABG pH POC ABG pCO2 POC ABG pO2 ABG pO2 ABG HCO3 ABG O2 Saturation ABG Base Excess ABG Hemoglobin ABG Oxyhemoglobin ABG Sodium ABG Potassium ABG Chloride ABG Glucose Oxyhemoglobin Carboxyhemoglobin Sodium Potassium Chloride 96.8 L Carbon Dioxide 37 H BUN 31 H Creatinine 0.6 L Glucose 213 H POC Glucose 164 H 208 H Lactic Acid Calcium Phosphorus Magnesium Ferritin Total Bilirubin Direct Bilirubin AST ALT Alkaline Phosphatase Lactate Dehydrogenase C-Reactive Protein Total Protein Albumin Triglycerides Lipase Arterial Blood Glucose Arterial Blood Ionized Calcium Urine WBC (Auto) Coronavirus (PCR) SARS-CoV-2 IgG Ab Crossmatch 05/31/20 05/31/20 06/01/20 17:37 23:47 03:48 WBC RBC Hgb Hct MCV MCH MCHC RDW Lymph % (Auto) [place] % (Auto) Lymph # (Auto) [place] # (Auto) Baso # (Auto) Seg Neutrophils % Seg Neuts % (Manual) Lymphocytes % (Manual) Nucleated RBC % Seg Neutrophils # Seg Neutrophils # Man Lymphocytes # (Manual) Monocytes # (Manual) Eosinophils # (Manual) PT INR APTT D-Dimer Heparin Anti-Xa Level ABG pH POC ABG pCO2 59.7 H POC ABG pO2 73.9 L ABG pO2 ABG HCO3 ABG O2 Saturation ABG Base Excess ABG Hemoglobin ABG Oxyhemoglobin ABG Sodium ABG Potassium ABG Chloride 95.0 L ABG Glucose 256 H Oxyhemoglobin Carboxyhemoglobin Sodium Potassium Chloride Carbon Dioxide BUN Creatinine Glucose POC Glucose 168 H 178 H Lactic Acid Calcium Phosphorus Magnesium Ferritin Total Bilirubin Direct Bilirubin AST ALT Alkaline Phosphatase Lactate Dehydrogenase C-Reactive Protein Total Protein Albumin Triglycerides Lipase Arterial Blood Glucose 256 H Arterial Blood Ionized Calcium Urine WBC (Auto) Coronavirus (PCR) SARS-CoV-2 IgG Ab Crossmatch 06/01/20 06/01/20 06/01/20 05:01 07:47 07:47 WBC 14.4 H RBC 3.46 L Hgb 11.1 L Hct 34.3 L MCV 99 H MCH MCHC RDW Lymph % (Auto) [place] % (Auto) Lymph # (Auto) [place] # (Auto) Baso # (Auto) Seg Neutrophils % Seg Neuts % (Manual) 86.0 H Lymphocytes % (Manual) 9.0 L Nucleated RBC % Seg Neutrophils # Seg Neutrophils # Man 12.4 H Lymphocytes # (Manual) Monocytes # (Manual) Eosinophils # (Manual) PT INR APTT D-Dimer Heparin Anti-Xa Level ABG pH POC ABG pCO2 POC ABG pO2 ABG pO2 ABG HCO3 ABG O2 Saturation ABG Base Excess ABG Hemoglobin ABG Oxyhemoglobin ABG Sodium ABG Potassium ABG Chloride ABG Glucose Oxyhemoglobin Carboxyhemoglobin Sodium Potassium Chloride Carbon Dioxide BUN Creatinine Glucose POC Glucose 197 H Lactic Acid Calcium Phosphorus Magnesium Ferritin Total Bilirubin Direct Bilirubin AST ALT Alkaline Phosphatase Lactate Dehydrogenase C-Reactive Protein Total Protein Albumin Triglycerides 244 H Lipase Arterial Blood Glucose Arterial Blood Ionized Calcium Urine WBC (Auto) Coronavirus (PCR) SARS-CoV-2 IgG Ab Crossmatch 06/01/20 06/01/20 06/01/20 07:47 11:46 18:15 WBC RBC Hgb Hct MCV MCH MCHC RDW Lymph % (Auto) [place] % (Auto) Lymph # (Auto) [place] # (Auto) Baso # (Auto) Seg Neutrophils % Seg Neuts % (Manual) Lymphocytes % (Manual) Nucleated RBC % Seg Neutrophils # Seg Neutrophils # Man Lymphocytes # (Manual) Monocytes # (Manual) Eosinophils # (Manual) PT INR APTT D-Dimer Heparin Anti-Xa Level ABG pH POC ABG pCO2 POC ABG pO2 ABG pO2 ABG HCO3 ABG O2 Saturation ABG Base Excess ABG Hemoglobin ABG Oxyhemoglobin ABG Sodium ABG Potassium ABG Chloride ABG Glucose Oxyhemoglobin Carboxyhemoglobin Sodium Potassium Chloride 95.4 L Carbon Dioxide 35 H BUN 30 H Creatinine 0.5 L Glucose 214 H POC Glucose 181 H 221 H Lactic Acid Calcium Phosphorus Magnesium Ferritin Total Bilirubin Direct Bilirubin AST 54 H ALT 235 H Alkaline Phosphatase Lactate Dehydrogenase C-Reactive Protein Total Protein Albumin 2.9 L Triglycerides Lipase Arterial Blood Glucose Arterial Blood Ionized Calcium Urine WBC (Auto) Coronavirus (PCR) SARS-CoV-2 IgG Ab Crossmatch 06/01/20 06/02/20 06/02/20 23:12 04:00 05:31 WBC RBC Hgb Hct MCV MCH MCHC RDW Lymph % (Auto) [place] % (Auto) Lymph # (Auto) [place] # (Auto) Baso # (Auto) Seg Neutrophils % Seg Neuts % (Manual) Lymphocytes % (Manual) Nucleated RBC % Seg Neutrophils # Seg Neutrophils # Man Lymphocytes # (Manual) Monocytes # (Manual) Eosinophils # (Manual) PT INR APTT D-Dimer Heparin Anti-Xa Level ABG pH 7.465 H POC ABG pCO2 POC ABG pO2 ABG pO2 203.4 H ABG HCO3 41.2 H ABG O2 Saturation 99.3 H ABG Base Excess 15.1 H ABG Hemoglobin 11.5 L ABG Oxyhemoglobin ABG Sodium ABG Potassium ABG Chloride ABG Glucose Oxyhemoglobin Carboxyhemoglobin Sodium Potassium Chloride Carbon Dioxide BUN Creatinine Glucose POC Glucose 197 H 184 H Lactic Acid Calcium Phosphorus Magnesium Ferritin Total Bilirubin Direct Bilirubin AST ALT Alkaline Phosphatase Lactate Dehydrogenase C-Reactive Protein Total Protein Albumin Triglycerides Lipase Arterial Blood Glucose Arterial Blood Ionized Calcium Urine WBC (Auto) Coronavirus (PCR) SARS-CoV-2 IgG Ab Crossmatch 06/02/20 06/02/20 06/02/20 11:49 18:06 23:00 WBC RBC Hgb Hct MCV MCH MCHC RDW Lymph % (Auto) [place] % (Auto) Lymph # (Auto) [place] # (Auto) Baso # (Auto) Seg Neutrophils % Seg Neuts % (Manual) Lymphocytes % (Manual) Nucleated RBC % Seg Neutrophils # Seg Neutrophils # Man Lymphocytes # (Manual) Monocytes # (Manual) Eosinophils # (Manual) PT INR APTT D-Dimer Heparin Anti-Xa Level ABG pH POC ABG pCO2 POC ABG pO2 ABG pO2 ABG HCO3 ABG O2 Saturation ABG Base Excess ABG Hemoglobin ABG Oxyhemoglobin ABG Sodium ABG Potassium ABG Chloride ABG Glucose Oxyhemoglobin Carboxyhemoglobin Sodium Potassium Chloride Carbon Dioxide BUN Creatinine Glucose POC Glucose 195 H 177 H 228 H Lactic Acid Calcium Phosphorus Magnesium Ferritin Total Bilirubin Direct Bilirubin AST ALT Alkaline Phosphatase Lactate Dehydrogenase C-Reactive Protein Total Protein Albumin Triglycerides Lipase Arterial Blood Glucose Arterial Blood Ionized Calcium Urine WBC (Auto) Coronavirus (PCR) SARS-CoV-2 IgG Ab Crossmatch 06/03/20 06/03/20 06/03/20 03:58 05:19 12:21 WBC RBC Hgb Hct MCV MCH MCHC RDW Lymph % (Auto) [place] % (Auto) Lymph # (Auto) [place] # (Auto) Baso # (Auto) Seg Neutrophils % Seg Neuts % (Manual) Lymphocytes % (Manual) Nucleated RBC % Seg Neutrophils # Seg Neutrophils # Man Lymphocytes # (Manual) Monocytes # (Manual) Eosinophils # (Manual) PT INR APTT D-Dimer Heparin Anti-Xa Level ABG pH POC ABG pCO2 POC ABG pO2 ABG pO2 171.0 H ABG HCO3 42.8 H ABG O2 Saturation ABG Base Excess 15.6 H ABG Hemoglobin 12.3 L ABG Oxyhemoglobin ABG Sodium ABG Potassium ABG Chloride ABG Glucose Oxyhemoglobin Carboxyhemoglobin Sodium Potassium Chloride Carbon Dioxide BUN Creatinine Glucose POC Glucose 122 H 207 H Lactic Acid Calcium Phosphorus Magnesium Ferritin Total Bilirubin Direct Bilirubin AST ALT Alkaline Phosphatase Lactate Dehydrogenase C-Reactive Protein Total Protein Albumin Triglycerides Lipase Arterial Blood Glucose Arterial Blood Ionized Calcium Urine WBC (Auto) Coronavirus (PCR) SARS-CoV-2 IgG Ab Crossmatch 06/03/20 06/03/20 06/04/20 17:27 23:50 03:55 WBC RBC Hgb Hct MCV MCH MCHC RDW Lymph % (Auto) [place] % (Auto) Lymph # (Auto) [place] # (Auto) Baso # (Auto) Seg Neutrophils % Seg Neuts % (Manual) Lymphocytes % (Manual) Nucleated RBC % Seg Neutrophils # Seg Neutrophils # Man Lymphocytes # (Manual) Monocytes # (Manual) Eosinophils # (Manual) PT INR APTT D-Dimer Heparin Anti-Xa Level ABG pH POC ABG pCO2 POC ABG pO2 ABG pO2 117.2 H ABG HCO3 42.4 H ABG O2 Saturation ABG Base Excess 15.3 H ABG Hemoglobin 10.5 L ABG Oxyhemoglobin ABG Sodium ABG Potassium ABG Chloride ABG Glucose Oxyhemoglobin Carboxyhemoglobin Sodium Potassium Chloride Carbon Dioxide BUN Creatinine Glucose POC Glucose 157 H 214 H Lactic Acid Calcium Phosphorus Magnesium Ferritin Total Bilirubin Direct Bilirubin AST ALT Alkaline Phosphatase Lactate Dehydrogenase C-Reactive Protein Total Protein Albumin Triglycerides Lipase Arterial Blood Glucose Arterial Blood Ionized Calcium Urine WBC (Auto) Coronavirus (PCR) SARS-CoV-2 IgG Ab Crossmatch 06/04/20 06/04/20 06/04/20 05:49 11:41 17:30 WBC RBC Hgb Hct MCV MCH MCHC RDW Lymph % (Auto) [place] % (Auto) Lymph # (Auto) [place] # (Auto) Baso # (Auto) Seg Neutrophils % Seg Neuts % (Manual) Lymphocytes % (Manual) Nucleated RBC % Seg Neutrophils # Seg Neutrophils # Man Lymphocytes # (Manual) Monocytes # (Manual) Eosinophils # (Manual) PT INR APTT D-Dimer Heparin Anti-Xa Level ABG pH POC ABG pCO2 POC ABG pO2 ABG pO2 ABG HCO3 ABG O2 Saturation ABG Base Excess ABG Hemoglobin ABG Oxyhemoglobin ABG Sodium ABG Potassium ABG Chloride ABG Glucose Oxyhemoglobin Carboxyhemoglobin Sodium Potassium Chloride Carbon Dioxide BUN Creatinine Glucose POC Glucose 149 H 233 H 156 H Lactic Acid Calcium Phosphorus Magnesium Ferritin Total Bilirubin Direct Bilirubin AST ALT Alkaline Phosphatase Lactate Dehydrogenase C-Reactive Protein Total Protein Albumin Triglycerides Lipase Arterial Blood Glucose Arterial Blood Ionized Calcium Urine WBC (Auto) Coronavirus (PCR) SARS-CoV-2 IgG Ab Crossmatch 06/04/20 06/04/20 06/04/20 19:01 20:53 23:41 WBC RBC 3.18 L Hgb 10.8 L Hct 31.8 L MCV 100 H MCH 34 H MCHC RDW Lymph % (Auto) [place] % (Auto) Lymph # (Auto) [place] # (Auto) Baso # (Auto) Seg Neutrophils % Seg Neuts % (Manual) 86.0 H Lymphocytes % (Manual) 10.0 L Nucleated RBC % 1.0 H Seg Neutrophils # Seg Neutrophils # Man 8.5 H Lymphocytes # (Manual) 1.0 L Monocytes # (Manual) Eosinophils # (Manual) PT INR APTT D-Dimer Heparin Anti-Xa Level ABG pH POC ABG pCO2 POC ABG pO2 ABG pO2 ABG HCO3 ABG O2 Saturation ABG Base Excess ABG Hemoglobin ABG Oxyhemoglobin ABG Sodium ABG Potassium ABG Chloride ABG Glucose Oxyhemoglobin Carboxyhemoglobin Sodium Potassium 3.4 L D Chloride 96.5 L Carbon Dioxide 41 H* BUN 27 H Creatinine 0.5 L Glucose 173 H POC Glucose 217 H Lactic Acid Calcium Phosphorus Magnesium Ferritin Total Bilirubin Direct Bilirubin AST ALT Alkaline Phosphatase Lactate Dehydrogenase C-Reactive Protein Total Protein Albumin Triglycerides Lipase Arterial Blood Glucose Arterial Blood Ionized Calcium Urine WBC (Auto) Coronavirus (PCR) SARS-CoV-2 IgG Ab Crossmatch 06/05/20 06/05/20 06/05/20 06:05 11:54 12:35 WBC RBC Hgb Hct MCV MCH MCHC RDW Lymph % (Auto) [place] % (Auto) Lymph # (Auto) [place] # (Auto) Baso # (Auto) Seg Neutrophils % Seg Neuts % (Manual) Lymphocytes % (Manual) Nucleated RBC % Seg Neutrophils # Seg Neutrophils # Man Lymphocytes # (Manual) Monocytes # (Manual) Eosinophils # (Manual) PT INR APTT D-Dimer Heparin Anti-Xa Level ABG pH POC ABG pCO2 POC ABG pO2 ABG pO2 127.9 H ABG HCO3 41.1 H ABG O2 Saturation ABG Base Excess 13.0 H ABG Hemoglobin 13.4 L ABG Oxyhemoglobin ABG Sodium ABG Potassium ABG Chloride ABG Glucose Oxyhemoglobin Carboxyhemoglobin Sodium Potassium Chloride Carbon Dioxide BUN Creatinine Glucose POC Glucose 137 H 211 H Lactic Acid Calcium Phosphorus Magnesium Ferritin Total Bilirubin Direct Bilirubin AST ALT Alkaline Phosphatase Lactate Dehydrogenase C-Reactive Protein Total Protein Albumin Triglycerides Lipase Arterial Blood Glucose Arterial Blood Ionized Calcium Urine WBC (Auto) Coronavirus (PCR) SARS-CoV-2 IgG Ab Crossmatch 06/05/20 06/05/20 06/06/20 17:03 23:49 04:42 WBC RBC Hgb Hct MCV MCH MCHC RDW Lymph % (Auto) [place] % (Auto) Lymph # (Auto) [place] # (Auto) Baso # (Auto) Seg Neutrophils % Seg Neuts % (Manual) Lymphocytes % (Manual) Nucleated RBC % Seg Neutrophils # Seg Neutrophils # Man Lymphocytes # (Manual) Monocytes # (Manual) Eosinophils # (Manual) PT INR APTT D-Dimer Heparin Anti-Xa Level ABG pH POC ABG pCO2 56.1 H POC ABG pO2 52.5 L ABG pO2 ABG HCO3 ABG O2 Saturation ABG Base Excess ABG Hemoglobin 11.7 L ABG Oxyhemoglobin ABG Sodium ABG Potassium 3.3 L ABG Chloride 95.0 L ABG Glucose 156 H Oxyhemoglobin Carboxyhemoglobin Sodium Potassium Chloride Carbon Dioxide BUN Creatinine Glucose POC Glucose 159 H 194 H Lactic Acid Calcium Phosphorus Magnesium Ferritin Total Bilirubin Direct Bilirubin AST ALT Alkaline Phosphatase Lactate Dehydrogenase C-Reactive Protein Total Protein Albumin Triglycerides Lipase Arterial Blood Glucose 156 H Arterial Blood Ionized Calcium Urine WBC (Auto) Coronavirus (PCR) SARS-CoV-2 IgG Ab Crossmatch 06/06/20 06/06/20 06/06/20 05:57 12:06 17:38 WBC RBC Hgb Hct MCV MCH MCHC RDW Lymph % (Auto) [place] % (Auto) Lymph # (Auto) [place] # (Auto) Baso # (Auto) Seg Neutrophils % Seg Neuts % (Manual) Lymphocytes % (Manual) Nucleated RBC % Seg Neutrophils # Seg Neutrophils # Man Lymphocytes # (Manual) Monocytes # (Manual) Eosinophils # (Manual) PT INR APTT D-Dimer Heparin Anti-Xa Level ABG pH POC ABG pCO2 POC ABG pO2 ABG pO2 ABG HCO3 ABG O2 Saturation ABG Base Excess ABG Hemoglobin ABG Oxyhemoglobin ABG Sodium ABG Potassium ABG Chloride ABG Glucose Oxyhemoglobin Carboxyhemoglobin Sodium Potassium Chloride Carbon Dioxide BUN Creatinine Glucose POC Glucose 144 H 230 H 162 H Lactic Acid Calcium Phosphorus Magnesium Ferritin Total Bilirubin Direct Bilirubin AST ALT Alkaline Phosphatase Lactate Dehydrogenase C-Reactive Protein Total Protein Albumin Triglycerides Lipase Arterial Blood Glucose Arterial Blood Ionized Calcium Urine WBC (Auto) Coronavirus (PCR) SARS-CoV-2 IgG Ab Crossmatch 06/06/20 06/07/20 06/07/20 23:50 04:34 06:03 WBC RBC Hgb Hct MCV MCH MCHC RDW Lymph % (Auto) [place] % (Auto) Lymph # (Auto) [place] # (Auto) Baso # (Auto) Seg Neutrophils % Seg Neuts % (Manual) Lymphocytes % (Manual) Nucleated RBC % Seg Neutrophils # Seg Neutrophils # Man Lymphocytes # (Manual) Monocytes # (Manual) Eosinophils # (Manual) PT INR APTT D-Dimer Heparin Anti-Xa Level ABG pH 7.511 H POC ABG pCO2 53.5 H POC ABG pO2 114.5 H ABG pO2 ABG HCO3 ABG O2 Saturation ABG Base Excess ABG Hemoglobin 9.4 L ABG Oxyhemoglobin ABG Sodium 134.5 L ABG Potassium ABG Chloride 94.0 L ABG Glucose 186 H Oxyhemoglobin Carboxyhemoglobin Sodium Potassium Chloride Carbon Dioxide BUN Creatinine Glucose POC Glucose 181 H 155 H Lactic Acid Calcium Phosphorus Magnesium Ferritin Total Bilirubin Direct Bilirubin AST ALT Alkaline Phosphatase Lactate Dehydrogenase C-Reactive Protein Total Protein Albumin Triglycerides Lipase Arterial Blood Glucose 186 H Arterial Blood Ionized Calcium 4.5 L Urine WBC (Auto) Coronavirus (PCR) SARS-CoV-2 IgG Ab Crossmatch 06/07/20 06/07/20 06/07/20 13:41 14:58 14:58 WBC RBC 2.72 L Hgb 9.3 L Hct 27.2 L MCV 100 H MCH 34 H MCHC RDW Lymph % (Auto) [place] % (Auto) Lymph # (Auto) [place] # (Auto) Baso # (Auto) Seg Neutrophils % Seg Neuts % (Manual) Lymphocytes % (Manual) Nucleated RBC % Seg Neutrophils # Seg Neutrophils # Man Lymphocytes # (Manual) Monocytes # (Manual) Eosinophils # (Manual) PT INR APTT D-Dimer Heparin Anti-Xa Level ABG pH POC ABG pCO2 POC ABG pO2 ABG pO2 ABG HCO3 ABG O2 Saturation ABG Base Excess ABG Hemoglobin ABG Oxyhemoglobin ABG Sodium ABG Potassium ABG Chloride ABG Glucose Oxyhemoglobin Carboxyhemoglobin Sodium Potassium Chloride 93.5 L Carbon Dioxide 39 H BUN 22 H Creatinine 0.4 L Glucose 188 H POC Glucose 201 H Lactic Acid Calcium Phosphorus Magnesium Ferritin Total Bilirubin Direct Bilirubin AST 61 H ALT 273 H Alkaline Phosphatase Lactate Dehydrogenase C-Reactive Protein Total Protein 5.9 L Albumin 2.7 L Triglycerides Lipase Arterial Blood Glucose Arterial Blood Ionized Calcium Urine WBC (Auto) Coronavirus (PCR) SARS-CoV-2 IgG Ab Crossmatch 06/07/20 06/08/20 06/08/20 23:18 05:31 12:07 WBC RBC Hgb Hct MCV MCH MCHC RDW Lymph % (Auto) [place] % (Auto) Lymph # (Auto) [place] # (Auto) Baso # (Auto) Seg Neutrophils % Seg Neuts % (Manual) Lymphocytes % (Manual) Nucleated RBC % Seg Neutrophils # Seg Neutrophils # Man Lymphocytes # (Manual) Monocytes # (Manual) Eosinophils # (Manual) PT INR APTT D-Dimer Heparin Anti-Xa Level ABG pH POC ABG pCO2 POC ABG pO2 ABG pO2 ABG HCO3 ABG O2 Saturation ABG Base Excess ABG Hemoglobin ABG Oxyhemoglobin ABG Sodium ABG Potassium ABG Chloride ABG Glucose Oxyhemoglobin Carboxyhemoglobin Sodium Potassium Chloride Carbon Dioxide BUN Creatinine Glucose POC Glucose 214 H 129 H 179 H Lactic Acid Calcium Phosphorus Magnesium Ferritin Total Bilirubin Direct Bilirubin AST ALT Alkaline Phosphatase Lactate Dehydrogenase C-Reactive Protein Total Protein Albumin Triglycerides Lipase Arterial Blood Glucose Arterial Blood Ionized Calcium Urine WBC (Auto) Coronavirus (PCR) SARS-CoV-2 IgG Ab Crossmatch 06/08/20 06/08/20 06/09/20 18:18 23:35 05:42 WBC RBC Hgb Hct MCV MCH MCHC RDW Lymph % (Auto) [place] % (Auto) Lymph # (Auto) [place] # (Auto) Baso # (Auto) Seg Neutrophils % Seg Neuts % (Manual) Lymphocytes % (Manual) Nucleated RBC % Seg Neutrophils # Seg Neutrophils # Man Lymphocytes # (Manual) Monocytes # (Manual) Eosinophils # (Manual) PT INR APTT D-Dimer Heparin Anti-Xa Level ABG pH POC ABG pCO2 POC ABG pO2 ABG pO2 ABG HCO3 ABG O2 Saturation ABG Base Excess ABG Hemoglobin ABG Oxyhemoglobin ABG Sodium ABG Potassium ABG Chloride ABG Glucose Oxyhemoglobin Carboxyhemoglobin Sodium Potassium Chloride Carbon Dioxide BUN Creatinine Glucose POC Glucose 172 H 177 H 137 H Lactic Acid Calcium Phosphorus Magnesium Ferritin Total Bilirubin Direct Bilirubin AST ALT Alkaline Phosphatase Lactate Dehydrogenase C-Reactive Protein Total Protein Albumin Triglycerides Lipase Arterial Blood Glucose Arterial Blood Ionized Calcium Urine WBC (Auto) Coronavirus (PCR) SARS-CoV-2 IgG Ab Crossmatch 06/09/20 06/09/20 06/09/20 06:20 07:55 07:55 WBC 12.4 H RBC 3.26 L Hgb 11.1 L Hct 33.4 L D MCV 102 H MCH 34 H MCHC RDW Lymph % (Auto) [place] % (Auto) Lymph # (Auto) [place] # (Auto) Baso # (Auto) Seg Neutrophils % Seg Neuts % (Manual) Lymphocytes % (Manual) Nucleated RBC % Seg Neutrophils # Seg Neutrophils # Man Lymphocytes # (Manual) Monocytes # (Manual) Eosinophils # (Manual) PT INR APTT D-Dimer Heparin Anti-Xa Level ABG pH 7.466 H POC ABG pCO2 50.7 H POC ABG pO2 53.0 L ABG pO2 ABG HCO3 ABG O2 Saturation ABG Base Excess ABG Hemoglobin ABG Oxyhemoglobin ABG Sodium ABG Potassium 2.9 L ABG Chloride 93.0 L ABG Glucose 138 H Oxyhemoglobin Carboxyhemoglobin Sodium Potassium 3.0 L Chloride 92.3 L Carbon Dioxide 37 H BUN 21 H Creatinine 0.6 L Glucose 120 H POC Glucose Lactic Acid Calcium Phosphorus Magnesium Ferritin Total Bilirubin Direct Bilirubin AST ALT Alkaline Phosphatase Lactate Dehydrogenase C-Reactive Protein Total Protein Albumin Triglycerides Lipase Arterial Blood Glucose 138 H Arterial Blood Ionized Calcium 4.5 L Urine WBC (Auto) Coronavirus (PCR) SARS-CoV-2 IgG Ab Crossmatch 06/09/20 06/09/20 06/10/20 11:22 18:32 04:46 WBC RBC Hgb Hct MCV MCH MCHC RDW Lymph % (Auto) [place] % (Auto) Lymph # (Auto) [place] # (Auto) Baso # (Auto) Seg Neutrophils % Seg Neuts % (Manual) Lymphocytes % (Manual) Nucleated RBC % Seg Neutrophils # Seg Neutrophils # Man Lymphocytes # (Manual) Monocytes # (Manual) Eosinophils # (Manual) PT INR APTT D-Dimer Heparin Anti-Xa Level ABG pH 7.501 H POC ABG pCO2 POC ABG pO2 126.5 H ABG pO2 ABG HCO3 ABG O2 Saturation ABG Base Excess ABG Hemoglobin 10.3 L ABG Oxyhemoglobin ABG Sodium ABG Potassium ABG Chloride ABG Glucose 220 H Oxyhemoglobin Carboxyhemoglobin Sodium Potassium Chloride Carbon Dioxide BUN Creatinine Glucose POC Glucose 117 H 121 H Lactic Acid Calcium Phosphorus Magnesium Ferritin Total Bilirubin Direct Bilirubin AST ALT Alkaline Phosphatase Lactate Dehydrogenase C-Reactive Protein Total Protein Albumin Triglycerides Lipase Arterial Blood Glucose 220 H Arterial Blood Ionized Calcium Urine WBC (Auto) Coronavirus (PCR) SARS-CoV-2 IgG Ab Crossmatch 06/10/20 06/10/20 06/10/20 05:30 09:38 12:03 WBC RBC Hgb Hct MCV MCH MCHC RDW Lymph % (Auto) [place] % (Auto) Lymph # (Auto) [place] # (Auto) Baso # (Auto) Seg Neutrophils % Seg Neuts % (Manual) Lymphocytes % (Manual) Nucleated RBC % Seg Neutrophils # Seg Neutrophils # Man Lymphocytes # (Manual) Monocytes # (Manual) Eosinophils # (Manual) PT INR APTT D-Dimer Heparin Anti-Xa Level ABG pH POC ABG pCO2 POC ABG pO2 ABG pO2 ABG HCO3 ABG O2 Saturation ABG Base Excess ABG Hemoglobin ABG Oxyhemoglobin ABG Sodium ABG Potassium ABG Chloride ABG Glucose Oxyhemoglobin Carboxyhemoglobin Sodium Potassium Chloride Carbon Dioxide BUN Creatinine Glucose POC Glucose 181 H 204 H Lactic Acid Calcium Phosphorus Magnesium Ferritin Total Bilirubin Direct Bilirubin AST ALT Alkaline Phosphatase Lactate Dehydrogenase C-Reactive Protein Total Protein Albumin Triglycerides 738 H Lipase Arterial Blood Glucose Arterial Blood Ionized Calcium Urine WBC (Auto) Coronavirus (PCR) SARS-CoV-2 IgG Ab Crossmatch 06/10/20 06/11/20 06/11/20 17:17 00:04 04:38 WBC RBC Hgb Hct MCV MCH MCHC RDW Lymph % (Auto) [place] % (Auto) Lymph # (Auto) [place] # (Auto) Baso # (Auto) Seg Neutrophils % Seg Neuts % (Manual) Lymphocytes % (Manual) Nucleated RBC % Seg Neutrophils # Seg Neutrophils # Man Lymphocytes # (Manual) Monocytes # (Manual) Eosinophils # (Manual) PT INR APTT D-Dimer Heparin Anti-Xa Level ABG pH 7.479 H POC ABG pCO2 POC ABG pO2 76.7 L ABG pO2 ABG HCO3 ABG O2 Saturation ABG Base Excess ABG Hemoglobin 9.8 L ABG Oxyhemoglobin ABG Sodium 135.8 L ABG Potassium ABG Chloride ABG Glucose 238 H Oxyhemoglobin Carboxyhemoglobin Sodium Potassium Chloride Carbon Dioxide BUN Creatinine Glucose POC Glucose 156 H 178 H Lactic Acid Calcium Phosphorus Magnesium Ferritin Total Bilirubin Direct Bilirubin AST ALT Alkaline Phosphatase Lactate Dehydrogenase C-Reactive Protein Total Protein Albumin Triglycerides Lipase Arterial Blood Glucose 238 H Arterial Blood Ionized Calcium Urine WBC (Auto) Coronavirus (PCR) SARS-CoV-2 IgG Ab Crossmatch 06/11/20 06/11/20 06/11/20 05:21 06:52 11:50 WBC RBC Hgb Hct MCV MCH MCHC RDW Lymph % (Auto) [place] % (Auto) Lymph # (Auto) [place] # (Auto) Baso # (Auto) Seg Neutrophils % Seg Neuts % (Manual) Lymphocytes % (Manual) Nucleated RBC % Seg Neutrophils # Seg Neutrophils # Man Lymphocytes # (Manual) Monocytes # (Manual) Eosinophils # (Manual) PT INR APTT D-Dimer Heparin Anti-Xa Level ABG pH POC ABG pCO2 POC ABG pO2 ABG pO2 ABG HCO3 ABG O2 Saturation ABG Base Excess ABG Hemoglobin ABG Oxyhemoglobin ABG Sodium ABG Potassium ABG Chloride ABG Glucose Oxyhemoglobin Carboxyhemoglobin Sodium Potassium Chloride Carbon Dioxide BUN Creatinine Glucose POC Glucose 215 H 187 H Lactic Acid Calcium Phosphorus Magnesium Ferritin Total Bilirubin Direct Bilirubin AST ALT Alkaline Phosphatase Lactate Dehydrogenase C-Reactive Protein Total Protein Albumin Triglycerides 331 H Lipase Arterial Blood Glucose Arterial Blood Ionized Calcium Urine WBC (Auto) Coronavirus (PCR) SARS-CoV-2 IgG Ab Crossmatch 06/11/20 06/11/20 06/12/20 17:49 23:35 04:52 WBC RBC Hgb Hct MCV MCH MCHC RDW Lymph % (Auto) [place] % (Auto) Lymph # (Auto) [place] # (Auto) Baso # (Auto) Seg Neutrophils % Seg Neuts % (Manual) Lymphocytes % (Manual) Nucleated RBC % Seg Neutrophils # Seg Neutrophils # Man Lymphocytes # (Manual) Monocytes # (Manual) Eosinophils # (Manual) PT INR APTT D-Dimer Heparin Anti-Xa Level ABG pH 7.486 H POC ABG pCO2 POC ABG pO2 ABG pO2 ABG HCO3 ABG O2 Saturation ABG Base Excess ABG Hemoglobin 9.4 L ABG Oxyhemoglobin ABG Sodium ABG Potassium 3.2 L ABG Chloride ABG Glucose 209 H Oxyhemoglobin Carboxyhemoglobin Sodium Potassium Chloride Carbon Dioxide BUN Creatinine Glucose POC Glucose 211 H 200 H Lactic Acid Calcium Phosphorus Magnesium Ferritin Total Bilirubin Direct Bilirubin AST ALT Alkaline Phosphatase Lactate Dehydrogenase C-Reactive Protein Total Protein Albumin Triglycerides Lipase Arterial Blood Glucose 209 H Arterial Blood Ionized Calcium Urine WBC (Auto) Coronavirus (PCR) SARS-CoV-2 IgG Ab Crossmatch 06/12/20 06/12/20 06/12/20 05:13 11:47 18:33 WBC RBC Hgb Hct MCV MCH MCHC RDW Lymph % (Auto) [place] % (Auto) Lymph # (Auto) [place] # (Auto) Baso # (Auto) Seg Neutrophils % Seg Neuts % (Manual) Lymphocytes % (Manual) Nucleated RBC % Seg Neutrophils # Seg Neutrophils # Man Lymphocytes # (Manual) Monocytes # (Manual) Eosinophils # (Manual) PT INR APTT D-Dimer Heparin Anti-Xa Level ABG pH POC ABG pCO2 POC ABG pO2 ABG pO2 ABG HCO3 ABG O2 Saturation ABG Base Excess ABG Hemoglobin ABG Oxyhemoglobin ABG Sodium ABG Potassium ABG Chloride ABG Glucose Oxyhemoglobin Carboxyhemoglobin Sodium Potassium Chloride Carbon Dioxide BUN Creatinine Glucose POC Glucose 174 H 214 H 194 H Lactic Acid Calcium Phosphorus Magnesium Ferritin Total Bilirubin Direct Bilirubin AST ALT Alkaline Phosphatase Lactate Dehydrogenase C-Reactive Protein Total Protein Albumin Triglycerides Lipase Arterial Blood Glucose Arterial Blood Ionized Calcium Urine WBC (Auto) Coronavirus (PCR) SARS-CoV-2 IgG Ab Crossmatch 06/12/20 06/13/20 06/13/20 23:49 05:41 12:30 WBC RBC Hgb Hct MCV MCH MCHC RDW Lymph % (Auto) [place] % (Auto) Lymph # (Auto) [place] # (Auto) Baso # (Auto) Seg Neutrophils % Seg Neuts % (Manual) Lymphocytes % (Manual) Nucleated RBC % Seg Neutrophils # Seg Neutrophils # Man Lymphocytes # (Manual) Monocytes # (Manual) Eosinophils # (Manual) PT INR APTT D-Dimer Heparin Anti-Xa Level ABG pH POC ABG pCO2 POC ABG pO2 ABG pO2 ABG HCO3 ABG O2 Saturation ABG Base Excess ABG Hemoglobin ABG Oxyhemoglobin ABG Sodium ABG Potassium ABG Chloride ABG Glucose Oxyhemoglobin Carboxyhemoglobin Sodium Potassium Chloride Carbon Dioxide BUN Creatinine Glucose POC Glucose 160 H 150 H 181 H Lactic Acid Calcium Phosphorus Magnesium Ferritin Total Bilirubin Direct Bilirubin AST ALT Alkaline Phosphatase Lactate Dehydrogenase C-Reactive Protein Total Protein Albumin Triglycerides Lipase Arterial Blood Glucose Arterial Blood Ionized Calcium Urine WBC (Auto) Coronavirus (PCR) SARS-CoV-2 IgG Ab Crossmatch 06/13/20 06/13/20 06/13/20 14:14 17:48 23:27 WBC 12.8 H RBC 2.33 L Hgb 8.0 L Hct 23.3 L MCV 100 H MCH 34 H MCHC RDW 15.7 H Lymph % (Auto) [place] % (Auto) Lymph # (Auto) [place] # (Auto) Baso # (Auto) Seg Neutrophils % Seg Neuts % (Manual) 85.0 H Lymphocytes % (Manual) 10.0 L Nucleated RBC % Seg Neutrophils # Seg Neutrophils # Man 10.9 H Lymphocytes # (Manual) Monocytes # (Manual) Eosinophils # (Manual) PT INR APTT D-Dimer Heparin Anti-Xa Level ABG pH POC ABG pCO2 POC ABG pO2 ABG pO2 ABG HCO3 ABG O2 Saturation ABG Base Excess ABG Hemoglobin ABG Oxyhemoglobin ABG Sodium ABG Potassium ABG Chloride ABG Glucose Oxyhemoglobin Carboxyhemoglobin Sodium Potassium Chloride Carbon Dioxide BUN Creatinine Glucose POC Glucose 173 H 154 H Lactic Acid Calcium Phosphorus Magnesium Ferritin Total Bilirubin Direct Bilirubin AST ALT Alkaline Phosphatase Lactate Dehydrogenase C-Reactive Protein Total Protein Albumin Triglycerides Lipase Arterial Blood Glucose Arterial Blood Ionized Calcium Urine WBC (Auto) Coronavirus (PCR) SARS-CoV-2 IgG Ab Crossmatch 06/14/20 06/14/20 06/14/20 03:58 05:21 07:15 WBC 26.2 H RBC 2.97 L Hgb 9.7 L Hct 29.9 L D MCV 101 H MCH 33 H MCHC RDW 15.3 H Lymph % (Auto) [place] % (Auto) Lymph # (Auto) [place] # (Auto) Baso # (Auto) Seg Neutrophils % Seg Neuts % (Manual) 79.0 H Lymphocytes % (Manual) 5.0 L Nucleated RBC % 3.0 H Seg Neutrophils # Seg Neutrophils # Man 20.7 H Lymphocytes # (Manual) Monocytes # (Manual) 1.3 H Eosinophils # (Manual) PT INR APTT D-Dimer Heparin Anti-Xa Level ABG pH POC ABG pCO2 51.5 H POC ABG pO2 70.0 L ABG pO2 ABG HCO3 ABG O2 Saturation ABG Base Excess ABG Hemoglobin 10.1 L ABG Oxyhemoglobin ABG Sodium 131.5 L ABG Potassium 3.1 L ABG Chloride 93.0 L ABG Glucose 188 H Oxyhemoglobin Carboxyhemoglobin Sodium Potassium Chloride Carbon Dioxide BUN Creatinine Glucose POC Glucose 147 H Lactic Acid Calcium Phosphorus Magnesium Ferritin Total Bilirubin Direct Bilirubin AST ALT Alkaline Phosphatase Lactate Dehydrogenase C-Reactive Protein Total Protein Albumin Triglycerides Lipase Arterial Blood Glucose 188 H Arterial Blood Ionized Calcium Urine WBC (Auto) Coronavirus (PCR) SARS-CoV-2 IgG Ab Crossmatch 06/14/20 06/14/20 06/14/20 07:15 11:30 11:50 WBC RBC Hgb Hct MCV MCH MCHC RDW Lymph % (Auto) [place] % (Auto) Lymph # (Auto) [place] # (Auto) Baso # (Auto) Seg Neutrophils % Seg Neuts % (Manual) Lymphocytes % (Manual) Nucleated RBC % Seg Neutrophils # Seg Neutrophils # Man Lymphocytes # (Manual) Monocytes # (Manual) Eosinophils # (Manual) PT INR APTT D-Dimer Heparin Anti-Xa Level ABG pH POC ABG pCO2 POC ABG pO2 ABG pO2 ABG HCO3 ABG O2 Saturation ABG Base Excess ABG Hemoglobin ABG Oxyhemoglobin ABG Sodium ABG Potassium ABG Chloride ABG Glucose Oxyhemoglobin Carboxyhemoglobin Sodium 135 L Potassium 3.5 L Chloride 90.4 L Carbon Dioxide 38 H BUN Creatinine 0.5 L Glucose 190 H POC Glucose 176 H Lactic Acid Calcium Phosphorus Magnesium Ferritin 1496.0 H Total Bilirubin Direct Bilirubin AST ALT 81 H Alkaline Phosphatase Lactate Dehydrogenase C-Reactive Protein Total Protein Albumin 2.9 L Triglycerides Lipase Arterial Blood Glucose Arterial Blood Ionized Calcium Urine WBC (Auto) Coronavirus (PCR) SARS-CoV-2 IgG Ab Crossmatch 06/14/20 06/15/20 06/15/20 23:31 04:00 05:00 WBC RBC Hgb Hct MCV MCH MCHC RDW Lymph % (Auto) [place] % (Auto) Lymph # (Auto) [place] # (Auto) Baso # (Auto) Seg Neutrophils % Seg Neuts % (Manual) Lymphocytes % (Manual) Nucleated RBC % Seg Neutrophils # Seg Neutrophils # Man Lymphocytes # (Manual) Monocytes # (Manual) Eosinophils # (Manual) PT INR APTT D-Dimer Heparin Anti-Xa Level ABG pH POC ABG pCO2 POC ABG pO2 ABG pO2 ABG HCO3 ABG O2 Saturation ABG Base Excess ABG Hemoglobin ABG Oxyhemoglobin ABG Sodium ABG Potassium ABG Chloride ABG Glucose Oxyhemoglobin Carboxyhemoglobin Sodium 133 L Potassium Chloride 91.1 L Carbon Dioxide 34 H BUN Creatinine 0.4 L Glucose 159 H POC Glucose 200 H Lactic Acid Calcium Phosphorus Magnesium Ferritin Total Bilirubin 2.00 H Direct Bilirubin AST 47 H ALT 77 H Alkaline Phosphatase Lactate Dehydrogenase C-Reactive Protein Total Protein Albumin 2.6 L Triglycerides 152 H Lipase Arterial Blood Glucose Arterial Blood Ionized Calcium Urine WBC (Auto) Coronavirus (PCR) SARS-CoV-2 IgG Ab Crossmatch 06/15/20 06/15/20 06/15/20 05:35 06:27 11:38 WBC RBC Hgb Hct MCV MCH MCHC RDW Lymph % (Auto) [place] % (Auto) Lymph # (Auto) [place] # (Auto) Baso # (Auto) Seg Neutrophils % Seg Neuts % (Manual) Lymphocytes % (Manual) Nucleated RBC % Seg Neutrophils # Seg Neutrophils # Man Lymphocytes # (Manual) Monocytes # (Manual) Eosinophils # (Manual) PT INR APTT D-Dimer Heparin Anti-Xa Level ABG pH POC ABG pCO2 61.0 H POC ABG pO2 67.9 L ABG pO2 ABG HCO3 ABG O2 Saturation ABG Base Excess ABG Hemoglobin 10.4 L ABG Oxyhemoglobin ABG Sodium 132.7 L ABG Potassium 3.3 L ABG Chloride 92.0 L ABG Glucose 158 H Oxyhemoglobin Carboxyhemoglobin Sodium Potassium Chloride Carbon Dioxide BUN Creatinine Glucose POC Glucose 148 H 197 H Lactic Acid Calcium Phosphorus Magnesium Ferritin Total Bilirubin Direct Bilirubin AST ALT Alkaline Phosphatase Lactate Dehydrogenase C-Reactive Protein Total Protein Albumin Triglycerides Lipase Arterial Blood Glucose 158 H Arterial Blood Ionized Calcium Urine WBC (Auto) Coronavirus (PCR) SARS-CoV-2 IgG Ab Crossmatch 06/15/20 06/15/20 06/16/20 17:29 Unknown 00:01 WBC 20.7 H RBC 2.57 L Hgb 8.9 L Hct 25.8 L MCV 101 H MCH 35 H MCHC 35 H RDW 16.0 H Lymph % (Auto) [place] % (Auto) Lymph # (Auto) [place] # (Auto) Baso # (Auto) Seg Neutrophils % Seg Neuts % (Manual) 83.0 H Lymphocytes % (Manual) 8.0 L Nucleated RBC % Seg Neutrophils # Seg Neutrophils # Man 17.2 H Lymphocytes # (Manual) Monocytes # (Manual) 1.2 H Eosinophils # (Manual) PT INR APTT D-Dimer Heparin Anti-Xa Level ABG pH POC ABG pCO2 POC ABG pO2 ABG pO2 ABG HCO3 ABG O2 Saturation ABG Base Excess ABG Hemoglobin ABG Oxyhemoglobin ABG Sodium ABG Potassium ABG Chloride ABG Glucose Oxyhemoglobin Carboxyhemoglobin Sodium Potassium Chloride Carbon Dioxide BUN Creatinine Glucose POC Glucose 231 H 257 H Lactic Acid Calcium Phosphorus Magnesium Ferritin Total Bilirubin Direct Bilirubin AST ALT Alkaline Phosphatase Lactate Dehydrogenase C-Reactive Protein Total Protein Albumin Triglycerides Lipase Arterial Blood Glucose Arterial Blood Ionized Calcium Urine WBC (Auto) Coronavirus (PCR) SARS-CoV-2 IgG Ab Crossmatch 06/16/20 06/16/20 06/16/20 04:00 04:00 05:22 WBC 13.8 H RBC 2.03 L Hgb 7.6 L Hct 20.7 L MCV 102 H MCH 37 H MCHC 37 H RDW 16.2 H Lymph % (Auto) 4.4 L [place] % (Auto) Lymph # (Auto) 0.6 L [place] # (Auto) Baso # (Auto) Seg Neutrophils % Seg Neuts % (Manual) Lymphocytes % (Manual) Nucleated RBC % Seg Neutrophils # 12.7 H Seg Neutrophils # Man Lymphocytes # (Manual) Monocytes # (Manual) Eosinophils # (Manual) PT INR APTT D-Dimer Heparin Anti-Xa Level ABG pH POC ABG pCO2 POC ABG pO2 ABG pO2 ABG HCO3 ABG O2 Saturation ABG Base Excess ABG Hemoglobin ABG Oxyhemoglobin ABG Sodium ABG Potassium ABG Chloride ABG Glucose Oxyhemoglobin Carboxyhemoglobin Sodium 130 L Potassium Chloride 88.9 L Carbon Dioxide 36 H BUN Creatinine 0.3 L Glucose 276 H POC Glucose 250 H Lactic Acid Calcium Phosphorus Magnesium Ferritin Total Bilirubin Direct Bilirubin AST ALT Alkaline Phosphatase Lactate Dehydrogenase C-Reactive Protein Total Protein Albumin Triglycerides Lipase Arterial Blood Glucose Arterial Blood Ionized Calcium Urine WBC (Auto) Coronavirus (PCR) SARS-CoV-2 IgG Ab Crossmatch 06/16/20 06/16/20 06/17/20 12:44 18:18 00:39 WBC RBC Hgb Hct MCV MCH MCHC RDW Lymph % (Auto) [place] % (Auto) Lymph # (Auto) [place] # (Auto) Baso # (Auto) Seg Neutrophils % Seg Neuts % (Manual) Lymphocytes % (Manual) Nucleated RBC % Seg Neutrophils # Seg Neutrophils # Man Lymphocytes # (Manual) Monocytes # (Manual) Eosinophils # (Manual) PT INR APTT D-Dimer Heparin Anti-Xa Level ABG pH POC ABG pCO2 POC ABG pO2 ABG pO2 ABG HCO3 ABG O2 Saturation ABG Base Excess ABG Hemoglobin ABG Oxyhemoglobin ABG Sodium ABG Potassium ABG Chloride ABG Glucose Oxyhemoglobin Carboxyhemoglobin Sodium Potassium Chloride Carbon Dioxide BUN Creatinine Glucose POC Glucose 279 H 239 H 247 H Lactic Acid Calcium Phosphorus Magnesium Ferritin Total Bilirubin Direct Bilirubin AST ALT Alkaline Phosphatase Lactate Dehydrogenase C-Reactive Protein Total Protein Albumin Triglycerides Lipase Arterial Blood Glucose Arterial Blood Ionized Calcium Urine WBC (Auto) Coronavirus (PCR) SARS-CoV-2 IgG Ab Crossmatch 06/17/20 06/17/20 06/17/20 03:40 04:08 10:54 WBC RBC Hgb Hct MCV MCH MCHC RDW Lymph % (Auto) [place] % (Auto) Lymph # (Auto) [place] # (Auto) Baso # (Auto) Seg Neutrophils % Seg Neuts % (Manual) Lymphocytes % (Manual) Nucleated RBC % Seg Neutrophils # Seg Neutrophils # Man Lymphocytes # (Manual) Monocytes # (Manual) Eosinophils # (Manual) PT INR APTT D-Dimer Heparin Anti-Xa Level ABG pH POC ABG pCO2 65.7 H POC ABG pO2 ABG pO2 ABG HCO3 ABG O2 Saturation ABG Base Excess ABG Hemoglobin 11.9 L ABG Oxyhemoglobin ABG Sodium ABG Potassium ABG Chloride 93.0 L ABG Glucose 244 H Oxyhemoglobin Carboxyhemoglobin Sodium Potassium Chloride Carbon Dioxide BUN Creatinine Glucose POC Glucose 221 H 248 H Lactic Acid Calcium Phosphorus Magnesium Ferritin Total Bilirubin Direct Bilirubin AST ALT Alkaline Phosphatase Lactate Dehydrogenase C-Reactive Protein Total Protein Albumin Triglycerides Lipase Arterial Blood Glucose 244 H Arterial Blood Ionized Calcium Urine WBC (Auto) Coronavirus (PCR) SARS-CoV-2 IgG Ab Crossmatch 06/17/20 06/17/20 06/17/20 17:47 23:11 23:29 WBC RBC Hgb Hct MCV MCH MCHC RDW Lymph % (Auto) [place] % (Auto) Lymph # (Auto) [place] # (Auto) Baso # (Auto) Seg Neutrophils % Seg Neuts % (Manual) Lymphocytes % (Manual) Nucleated RBC % Seg Neutrophils # Seg Neutrophils # Man Lymphocytes # (Manual) Monocytes # (Manual) Eosinophils # (Manual) PT INR APTT D-Dimer Heparin Anti-Xa Level ABG pH POC ABG pCO2 85.2 H POC ABG pO2 48.4 L ABG pO2 ABG HCO3 ABG O2 Saturation ABG Base Excess ABG Hemoglobin 8.0 L ABG Oxyhemoglobin ABG Sodium ABG Potassium ABG Chloride 95.0 L ABG Glucose 292 H Oxyhemoglobin Carboxyhemoglobin Sodium Potassium Chloride Carbon Dioxide BUN Creatinine Glucose POC Glucose 245 H 252 H Lactic Acid Calcium Phosphorus Magnesium Ferritin Total Bilirubin Direct Bilirubin AST ALT Alkaline Phosphatase Lactate Dehydrogenase C-Reactive Protein Total Protein Albumin Triglycerides Lipase Arterial Blood Glucose 292 H Arterial Blood Ionized Calcium Urine WBC (Auto) Coronavirus (PCR) SARS-CoV-2 IgG Ab Crossmatch 06/18/20 06/18/20 06/18/20 03:14 05:34 11:47 WBC RBC Hgb Hct MCV MCH MCHC RDW Lymph % (Auto) [place] % (Auto) Lymph # (Auto) [place] # (Auto) Baso # (Auto) Seg Neutrophils % Seg Neuts % (Manual) Lymphocytes % (Manual) Nucleated RBC % Seg Neutrophils # Seg Neutrophils # Man Lymphocytes # (Manual) Monocytes # (Manual) Eosinophils # (Manual) PT INR APTT D-Dimer Heparin Anti-Xa Level ABG pH POC ABG pCO2 65.4 H POC ABG pO2 160.7 H ABG pO2 ABG HCO3 ABG O2 Saturation ABG Base Excess ABG Hemoglobin 7.8 L ABG Oxyhemoglobin ABG Sodium ABG Potassium ABG Chloride 95.0 L ABG Glucose 251 H Oxyhemoglobin Carboxyhemoglobin Sodium Potassium Chloride Carbon Dioxide BUN Creatinine Glucose POC Glucose 243 H 263 H Lactic Acid Calcium Phosphorus Magnesium Ferritin Total Bilirubin Direct Bilirubin AST ALT Alkaline Phosphatase Lactate Dehydrogenase C-Reactive Protein Total Protein Albumin Triglycerides Lipase Arterial Blood Glucose 251 H Arterial Blood Ionized Calcium Urine WBC (Auto) Coronavirus (PCR) SARS-CoV-2 IgG Ab Crossmatch 06/18/20 06/18/20 06/19/20 17:31 23:33 04:32 WBC RBC Hgb Hct MCV MCH MCHC RDW Lymph % (Auto) [place] % (Auto) Lymph # (Auto) [place] # (Auto) Baso # (Auto) Seg Neutrophils % Seg Neuts % (Manual) Lymphocytes % (Manual) Nucleated RBC % Seg Neutrophils # Seg Neutrophils # Man Lymphocytes # (Manual) Monocytes # (Manual) Eosinophils # (Manual) PT INR APTT D-Dimer Heparin Anti-Xa Level ABG pH POC ABG pCO2 83.1 H POC ABG pO2 65.8 L ABG pO2 ABG HCO3 ABG O2 Saturation ABG Base Excess ABG Hemoglobin 8.9 L ABG Oxyhemoglobin ABG Sodium ABG Potassium ABG Chloride 96.0 L ABG Glucose 297 H Oxyhemoglobin Carboxyhemoglobin Sodium Potassium Chloride Carbon Dioxide BUN Creatinine Glucose POC Glucose 286 H 238 H Lactic Acid Calcium Phosphorus Magnesium Ferritin Total Bilirubin Direct Bilirubin AST ALT Alkaline Phosphatase Lactate Dehydrogenase C-Reactive Protein Total Protein Albumin Triglycerides Lipase Arterial Blood Glucose 297 H Arterial Blood Ionized Calcium Urine WBC (Auto) Coronavirus (PCR) SARS-CoV-2 IgG Ab Crossmatch 06/19/20 06/19/20 06/19/20 05:55 11:20 17:12 WBC RBC Hgb Hct MCV MCH MCHC RDW Lymph % (Auto) [place] % (Auto) Lymph # (Auto) [place] # (Auto) Baso # (Auto) Seg Neutrophils % Seg Neuts % (Manual) Lymphocytes % (Manual) Nucleated RBC % Seg Neutrophils # Seg Neutrophils # Man Lymphocytes # (Manual) Monocytes # (Manual) Eosinophils # (Manual) PT INR APTT D-Dimer Heparin Anti-Xa Level ABG pH POC ABG pCO2 POC ABG pO2 ABG pO2 ABG HCO3 ABG O2 Saturation ABG Base Excess ABG Hemoglobin ABG Oxyhemoglobin ABG Sodium ABG Potassium ABG Chloride ABG Glucose Oxyhemoglobin Carboxyhemoglobin Sodium Potassium Chloride Carbon Dioxide BUN Creatinine Glucose POC Glucose 274 H 282 H 298 H Lactic Acid Calcium Phosphorus Magnesium Ferritin Total Bilirubin Direct Bilirubin AST ALT Alkaline Phosphatase Lactate Dehydrogenase C-Reactive Protein Total Protein Albumin Triglycerides Lipase Arterial Blood Glucose Arterial Blood Ionized Calcium Urine WBC (Auto) Coronavirus (PCR) SARS-CoV-2 IgG Ab Crossmatch 06/19/20 06/20/20 06/20/20 23:08 03:33 06:01 WBC RBC Hgb Hct MCV MCH MCHC RDW Lymph % (Auto) [place] % (Auto) Lymph # (Auto) [place] # (Auto) Baso # (Auto) Seg Neutrophils % Seg Neuts % (Manual) Lymphocytes % (Manual) Nucleated RBC % Seg Neutrophils # Seg Neutrophils # Man Lymphocytes # (Manual) Monocytes # (Manual) Eosinophils # (Manual) PT INR APTT D-Dimer Heparin Anti-Xa Level ABG pH POC ABG pCO2 POC ABG pO2 ABG pO2 69.9 L ABG HCO3 50.8 H ABG O2 Saturation ABG Base Excess 24.2 H ABG Hemoglobin 5.8 L ABG Oxyhemoglobin ABG Sodium ABG Potassium ABG Chloride ABG Glucose Oxyhemoglobin Carboxyhemoglobin Sodium Potassium Chloride Carbon Dioxide BUN Creatinine Glucose POC Glucose 293 H 182 H Lactic Acid Calcium Phosphorus Magnesium Ferritin Total Bilirubin Direct Bilirubin AST ALT Alkaline Phosphatase Lactate Dehydrogenase C-Reactive Protein Total Protein Albumin Triglycerides Lipase Arterial Blood Glucose Arterial Blood Ionized Calcium Urine WBC (Auto) Coronavirus (PCR) SARS-CoV-2 IgG Ab Crossmatch 06/20/20 06/20/20 06/20/20 11:47 17:46 23:37 WBC RBC Hgb Hct MCV MCH MCHC RDW Lymph % (Auto) [place] % (Auto) Lymph # (Auto) [place] # (Auto) Baso # (Auto) Seg Neutrophils % Seg Neuts % (Manual) Lymphocytes % (Manual) Nucleated RBC % Seg Neutrophils # Seg Neutrophils # Man Lymphocytes # (Manual) Monocytes # (Manual) Eosinophils # (Manual) PT INR APTT D-Dimer Heparin Anti-Xa Level ABG pH POC ABG pCO2 POC ABG pO2 ABG pO2 ABG HCO3 ABG O2 Saturation ABG Base Excess ABG Hemoglobin ABG Oxyhemoglobin ABG Sodium ABG Potassium ABG Chloride ABG Glucose Oxyhemoglobin Carboxyhemoglobin Sodium Potassium Chloride Carbon Dioxide BUN Creatinine Glucose POC Glucose 170 H 215 H 256 H Lactic Acid Calcium Phosphorus Magnesium Ferritin Total Bilirubin Direct Bilirubin AST ALT Alkaline Phosphatase Lactate Dehydrogenase C-Reactive Protein Total Protein Albumin Triglycerides Lipase Arterial Blood Glucose Arterial Blood Ionized Calcium Urine WBC (Auto) Coronavirus (PCR) SARS-CoV-2 IgG Ab Crossmatch 06/21/20 06/21/20 06/21/20 04:00 05:14 05:51 WBC RBC Hgb Hct MCV MCH MCHC RDW Lymph % (Auto) [place] % (Auto) Lymph # (Auto) [place] # (Auto) Baso # (Auto) Seg Neutrophils % Seg Neuts % (Manual) Lymphocytes % (Manual) Nucleated RBC % Seg Neutrophils # Seg Neutrophils # Man Lymphocytes # (Manual) Monocytes # (Manual) Eosinophils # (Manual) PT INR APTT D-Dimer Heparin Anti-Xa Level ABG pH 7.474 H POC ABG pCO2 POC ABG pO2 ABG pO2 ABG HCO3 52.1 H ABG O2 Saturation ABG Base Excess 23.3 H ABG Hemoglobin 5.3 L ABG Oxyhemoglobin ABG Sodium ABG Potassium ABG Chloride ABG Glucose Oxyhemoglobin 93.8 L Carboxyhemoglobin Sodium Potassium Chloride Carbon Dioxide BUN Creatinine Glucose POC Glucose 122 H 129 H Lactic Acid Calcium Phosphorus Magnesium Ferritin Total Bilirubin Direct Bilirubin AST ALT Alkaline Phosphatase Lactate Dehydrogenase C-Reactive Protein Total Protein Albumin Triglycerides Lipase Arterial Blood Glucose Arterial Blood Ionized Calcium Urine WBC (Auto) Coronavirus (PCR) SARS-CoV-2 IgG Ab Crossmatch 06/21/20 06/21/20 06/21/20 11:00 11:00 11:42 WBC 14.2 H RBC 1.85 L Hgb 6.2 L Hct 19.5 L* MCV 105 H MCH 34 H MCHC RDW 18.0 H Lymph % (Auto) [place] % (Auto) Lymph # (Auto) [place] # (Auto) Baso # (Auto) Seg Neutrophils % Seg Neuts % (Manual) Lymphocytes % (Manual) Nucleated RBC % Seg Neutrophils # Seg Neutrophils # Man Lymphocytes # (Manual) Monocytes # (Manual) Eosinophils # (Manual) PT INR APTT D-Dimer Heparin Anti-Xa Level ABG pH POC ABG pCO2 POC ABG pO2 ABG pO2 ABG HCO3 ABG O2 Saturation ABG Base Excess ABG Hemoglobin ABG Oxyhemoglobin ABG Sodium ABG Potassium ABG Chloride ABG Glucose Oxyhemoglobin Carboxyhemoglobin Sodium 147 H Potassium Chloride Carbon Dioxide 51 H* BUN 31 H Creatinine 0.5 L Glucose 224 H POC Glucose 217 H Lactic Acid Calcium Phosphorus Magnesium Ferritin Total Bilirubin Direct Bilirubin AST ALT Alkaline Phosphatase Lactate Dehydrogenase C-Reactive Protein Total Protein Albumin Triglycerides Lipase Arterial Blood Glucose Arterial Blood Ionized Calcium Urine WBC (Auto) Coronavirus (PCR) SARS-CoV-2 IgG Ab Crossmatch 06/21/20 06/21/20 06/21/20 14:18 14:30 18:36 WBC RBC Hgb Hct MCV MCH MCHC RDW Lymph % (Auto) [place] % (Auto) Lymph # (Auto) [place] # (Auto) Baso # (Auto) Seg Neutrophils % Seg Neuts % (Manual) Lymphocytes % (Manual) Nucleated RBC % Seg Neutrophils # Seg Neutrophils # Man Lymphocytes # (Manual) Monocytes # (Manual) Eosinophils # (Manual) PT 15.1 H INR 1.19 H APTT D-Dimer Heparin Anti-Xa Level ABG pH POC ABG pCO2 POC ABG pO2 ABG pO2 ABG HCO3 ABG O2 Saturation ABG Base Excess ABG Hemoglobin ABG Oxyhemoglobin ABG Sodium ABG Potassium ABG Chloride ABG Glucose Oxyhemoglobin Carboxyhemoglobin Sodium Potassium Chloride Carbon Dioxide BUN Creatinine Glucose POC Glucose 185 H Lactic Acid Calcium Phosphorus Magnesium Ferritin Total Bilirubin Direct Bilirubin AST ALT Alkaline Phosphatase Lactate Dehydrogenase C-Reactive Protein Total Protein Albumin Triglycerides Lipase Arterial Blood Glucose Arterial Blood Ionized Calcium Urine WBC (Auto) Coronavirus (PCR) SARS-CoV-2 IgG Ab Crossmatch See Detail 06/21/20 06/22/20 06/22/20 21:14 03:50 04:00 WBC RBC Hgb Hct MCV MCH MCHC RDW Lymph % (Auto) [place] % (Auto) Lymph # (Auto) [place] # (Auto) Baso # (Auto) Seg Neutrophils % Seg Neuts % (Manual) Lymphocytes % (Manual) Nucleated RBC % Seg Neutrophils # Seg Neutrophils # Man Lymphocytes # (Manual) Monocytes # (Manual) Eosinophils # (Manual) PT INR APTT D-Dimer Heparin Anti-Xa Level ABG pH 7.451 H POC ABG pCO2 POC ABG pO2 ABG pO2 ABG HCO3 47.5 H ABG O2 Saturation ABG Base Excess 22.0 H ABG Hemoglobin < 5.1 L ABG Oxyhemoglobin ABG Sodium ABG Potassium ABG Chloride ABG Glucose Oxyhemoglobin 94.1 L Carboxyhemoglobin Sodium 149 H Potassium 3.5 L Chloride Carbon Dioxide 42 H* D BUN 34 H Creatinine 0.4 L Glucose 219 H POC Glucose 250 H Lactic Acid Calcium Phosphorus Magnesium Ferritin Total Bilirubin Direct Bilirubin AST ALT Alkaline Phosphatase Lactate Dehydrogenase C-Reactive Protein Total Protein Albumin Triglycerides Lipase Arterial Blood Glucose Arterial Blood Ionized Calcium Urine WBC (Auto) Coronavirus (PCR) SARS-CoV-2 IgG Ab Crossmatch 06/22/20 06/22/20 06/22/20 12:16 14:29 17:56 WBC RBC Hgb Hct MCV MCH MCHC RDW Lymph % (Auto) [place] % (Auto) Lymph # (Auto) [place] # (Auto) Baso # (Auto) Seg Neutrophils % Seg Neuts % (Manual) Lymphocytes % (Manual) Nucleated RBC % Seg Neutrophils # Seg Neutrophils # Man Lymphocytes # (Manual) Monocytes # (Manual) Eosinophils # (Manual) PT 11.8 L INR APTT 23.5 L D-Dimer Heparin Anti-Xa Level ABG pH POC ABG pCO2 POC ABG pO2 ABG pO2 ABG HCO3 ABG O2 Saturation ABG Base Excess ABG Hemoglobin ABG Oxyhemoglobin ABG Sodium ABG Potassium ABG Chloride ABG Glucose Oxyhemoglobin Carboxyhemoglobin Sodium Potassium Chloride Carbon Dioxide BUN Creatinine Glucose POC Glucose 215 H 215 H Lactic Acid Calcium Phosphorus Magnesium Ferritin Total Bilirubin Direct Bilirubin AST ALT Alkaline Phosphatase Lactate Dehydrogenase C-Reactive Protein Total Protein Albumin Triglycerides Lipase Arterial Blood Glucose Arterial Blood Ionized Calcium Urine WBC (Auto) Coronavirus (PCR) SARS-CoV-2 IgG Ab Crossmatch 06/22/20 06/22/20 06/22/20 23:36 23:45 Unknown WBC 14.1 H RBC 2.70 L Hgb 8.9 L 8.9 L Hct 26.9 L 27.2 L D MCV 101 H MCH 33 H MCHC RDW 17.7 H Lymph % (Auto) [place] % (Auto) Lymph # (Auto) [place] # (Auto) Baso # (Auto) Seg Neutrophils % Seg Neuts % (Manual) 92.0 H Lymphocytes % (Manual) 5.0 L Nucleated RBC % Seg Neutrophils # Seg Neutrophils # Man 13.0 H Lymphocytes # (Manual) 0.7 L Monocytes # (Manual) Eosinophils # (Manual) PT INR APTT D-Dimer Heparin Anti-Xa Level ABG pH POC ABG pCO2 POC ABG pO2 ABG pO2 ABG HCO3 ABG O2 Saturation ABG Base Excess ABG Hemoglobin ABG Oxyhemoglobin ABG Sodium ABG Potassium ABG Chloride ABG Glucose Oxyhemoglobin Carboxyhemoglobin Sodium Potassium Chloride Carbon Dioxide BUN Creatinine Glucose POC Glucose 208 H Lactic Acid Calcium Phosphorus Magnesium Ferritin Total Bilirubin Direct Bilirubin AST ALT Alkaline Phosphatase Lactate Dehydrogenase C-Reactive Protein Total Protein Albumin Triglycerides Lipase Arterial Blood Glucose Arterial Blood Ionized Calcium Urine WBC (Auto) Coronavirus (PCR) SARS-CoV-2 IgG Ab Crossmatch 06/23/20 06/23/20 06/23/20 05:17 05:19 06:50 WBC RBC Hgb Hct MCV MCH MCHC RDW Lymph % (Auto) [place] % (Auto) Lymph # (Auto) [place] # (Auto) Baso # (Auto) Seg Neutrophils % Seg Neuts % (Manual) Lymphocytes % (Manual) Nucleated RBC % Seg Neutrophils # Seg Neutrophils # Man Lymphocytes # (Manual) Monocytes # (Manual) Eosinophils # (Manual) PT INR APTT D-Dimer Heparin Anti-Xa Level ABG pH POC ABG pCO2 69.7 H POC ABG pO2 63.3 L ABG pO2 ABG HCO3 ABG O2 Saturation ABG Base Excess ABG Hemoglobin 10.1 L ABG Oxyhemoglobin ABG Sodium ABG Potassium 3.3 L ABG Chloride ABG Glucose 226 H Oxyhemoglobin Carboxyhemoglobin Sodium Potassium 3.0 L Chloride Carbon Dioxide 41 H* BUN 26 H Creatinine 0.4 L Glucose 209 H POC Glucose 200 H Lactic Acid Calcium Phosphorus Magnesium Ferritin Total Bilirubin Direct Bilirubin AST ALT Alkaline Phosphatase Lactate Dehydrogenase C-Reactive Protein Total Protein Albumin 2.9 L Triglycerides Lipase Arterial Blood Glucose 226 H Arterial Blood Ionized Calcium Urine WBC (Auto) Coronavirus (PCR) SARS-CoV-2 IgG Ab Crossmatch 06/23/20 06/23/20 06/23/20 09:41 12:04 18:16 WBC RBC Hgb 9.1 L Hct 28.0 L MCV MCH MCHC RDW Lymph % (Auto) [place] % (Auto) Lymph # (Auto) [place] # (Auto) Baso # (Auto) Seg Neutrophils % Seg Neuts % (Manual) Lymphocytes % (Manual) Nucleated RBC % Seg Neutrophils # Seg Neutrophils # Man Lymphocytes # (Manual) Monocytes # (Manual) Eosinophils # (Manual) PT INR APTT D-Dimer Heparin Anti-Xa Level ABG pH POC ABG pCO2 POC ABG pO2 ABG pO2 ABG HCO3 ABG O2 Saturation ABG Base Excess ABG Hemoglobin ABG Oxyhemoglobin ABG Sodium ABG Potassium ABG Chloride ABG Glucose Oxyhemoglobin Carboxyhemoglobin Sodium Potassium Chloride Carbon Dioxide BUN Creatinine Glucose POC Glucose 146 H 162 H Lactic Acid Calcium Phosphorus Magnesium Ferritin Total Bilirubin Direct Bilirubin AST ALT Alkaline Phosphatase Lactate Dehydrogenase C-Reactive Protein Total Protein Albumin Triglycerides Lipase Arterial Blood Glucose Arterial Blood Ionized Calcium Urine WBC (Auto) Coronavirus (PCR) SARS-CoV-2 IgG Ab Crossmatch 06/23/20 06/23/20 06/24/20 23:24 23:41 02:39 WBC RBC Hgb 8.2 L 8.8 L Hct 24.9 L 26.8 L MCV MCH MCHC RDW Lymph % (Auto) [place] % (Auto) Lymph # (Auto) [place] # (Auto) Baso # (Auto) Seg Neutrophils % Seg Neuts % (Manual) Lymphocytes % (Manual) Nucleated RBC % Seg Neutrophils # Seg Neutrophils # Man Lymphocytes # (Manual) Monocytes # (Manual) Eosinophils # (Manual) PT INR APTT D-Dimer Heparin Anti-Xa Level ABG pH POC ABG pCO2 POC ABG pO2 ABG pO2 ABG HCO3 ABG O2 Saturation ABG Base Excess ABG Hemoglobin ABG Oxyhemoglobin ABG Sodium ABG Potassium ABG Chloride ABG Glucose Oxyhemoglobin Carboxyhemoglobin Sodium Potassium Chloride Carbon Dioxide BUN Creatinine Glucose POC Glucose 248 H Lactic Acid Calcium Phosphorus Magnesium Ferritin Total Bilirubin Direct Bilirubin AST ALT Alkaline Phosphatase Lactate Dehydrogenase C-Reactive Protein Total Protein Albumin Triglycerides Lipase Arterial Blood Glucose Arterial Blood Ionized Calcium Urine WBC (Auto) Coronavirus (PCR) SARS-CoV-2 IgG Ab Crossmatch 06/24/20 06/24/20 06/24/20 02:39 02:45 05:31 WBC RBC Hgb Hct MCV MCH MCHC RDW Lymph % (Auto) [place] % (Auto) Lymph # (Auto) [place] # (Auto) Baso # (Auto) Seg Neutrophils % Seg Neuts % (Manual) Lymphocytes % (Manual) Nucleated RBC % Seg Neutrophils # Seg Neutrophils # Man Lymphocytes # (Manual) Monocytes # (Manual) Eosinophils # (Manual) PT INR APTT D-Dimer Heparin Anti-Xa Level ABG pH POC ABG pCO2 66.9 H POC ABG pO2 109.7 H ABG pO2 ABG HCO3 ABG O2 Saturation ABG Base Excess ABG Hemoglobin 9.7 L ABG Oxyhemoglobin ABG Sodium 135.0 L ABG Potassium ABG Chloride 97.0 L ABG Glucose 277 H Oxyhemoglobin Carboxyhemoglobin Sodium 136 L Potassium Chloride 95.0 L Carbon Dioxide 34 H D BUN 24 H Creatinine 0.3 L Glucose 260 H POC Glucose 164 H Lactic Acid Calcium Phosphorus Magnesium Ferritin Total Bilirubin Direct Bilirubin AST ALT Alkaline Phosphatase Lactate Dehydrogenase C-Reactive Protein Total Protein 5.2 L Albumin 2.6 L Triglycerides Lipase Arterial Blood Glucose 277 H Arterial Blood Ionized Calcium Urine WBC (Auto) Coronavirus (PCR) SARS-CoV-2 IgG Ab Crossmatch 06/24/20 06/24/20 06/24/20 10:00 11:49 17:39 WBC RBC Hgb 8.9 L Hct 26.5 L MCV MCH MCHC RDW Lymph % (Auto) [place] % (Auto) Lymph # (Auto) [place] # (Auto) Baso # (Auto) Seg Neutrophils % Seg Neuts % (Manual) Lymphocytes % (Manual) Nucleated RBC % Seg Neutrophils # Seg Neutrophils # Man Lymphocytes # (Manual) Monocytes # (Manual) Eosinophils # (Manual) PT INR APTT D-Dimer Heparin Anti-Xa Level ABG pH POC ABG pCO2 POC ABG pO2 ABG pO2 ABG HCO3 ABG O2 Saturation ABG Base Excess ABG Hemoglobin ABG Oxyhemoglobin ABG Sodium ABG Potassium ABG Chloride ABG Glucose Oxyhemoglobin Carboxyhemoglobin Sodium Potassium Chloride Carbon Dioxide BUN Creatinine Glucose POC Glucose 198 H 223 H Lactic Acid Calcium Phosphorus Magnesium Ferritin Total Bilirubin Direct Bilirubin AST ALT Alkaline Phosphatase Lactate Dehydrogenase C-Reactive Protein Total Protein Albumin Triglycerides Lipase Arterial Blood Glucose Arterial Blood Ionized Calcium Urine WBC (Auto) Coronavirus (PCR) SARS-CoV-2 IgG Ab Crossmatch 06/24/20 06/25/20 06/25/20 23:56 02:16 04:08 WBC RBC Hgb Hct MCV MCH MCHC RDW Lymph % (Auto) [place] % (Auto) Lymph # (Auto) [place] # (Auto) Baso # (Auto) Seg Neutrophils % Seg Neuts % (Manual) Lymphocytes % (Manual) Nucleated RBC % Seg Neutrophils # Seg Neutrophils # Man Lymphocytes # (Manual) Monocytes # (Manual) Eosinophils # (Manual) PT INR APTT D-Dimer Heparin Anti-Xa Level ABG pH 7.454 H POC ABG pCO2 56.9 H POC ABG pO2 61.0 L ABG pO2 ABG HCO3 ABG O2 Saturation ABG Base Excess ABG Hemoglobin ABG Oxyhemoglobin ABG Sodium 134.3 L ABG Potassium ABG Chloride 92.0 L ABG Glucose 246 H Oxyhemoglobin Carboxyhemoglobin Sodium 134 L Potassium Chloride 89.7 L Carbon Dioxide 36 H BUN Creatinine 0.3 L Glucose 254 H POC Glucose 225 H Lactic Acid Calcium Phosphorus Magnesium Ferritin Total Bilirubin Direct Bilirubin AST ALT Alkaline Phosphatase Lactate Dehydrogenase C-Reactive Protein Total Protein Albumin 2.9 L Triglycerides Lipase Arterial Blood Glucose 246 H Arterial Blood Ionized Calcium Urine WBC (Auto) Coronavirus (PCR) SARS-CoV-2 IgG Ab Crossmatch 06/25/20 06/25/20 06/25/20 05:44 11:35 17:33 WBC RBC Hgb Hct MCV MCH MCHC RDW Lymph % (Auto) [place] % (Auto) Lymph # (Auto) [place] # (Auto) Baso # (Auto) Seg Neutrophils % Seg Neuts % (Manual) Lymphocytes % (Manual) Nucleated RBC % Seg Neutrophils # Seg Neutrophils # Man Lymphocytes # (Manual) Monocytes # (Manual) Eosinophils # (Manual) PT INR APTT D-Dimer Heparin Anti-Xa Level ABG pH POC ABG pCO2 POC ABG pO2 ABG pO2 ABG HCO3 ABG O2 Saturation ABG Base Excess ABG Hemoglobin ABG Oxyhemoglobin ABG Sodium ABG Potassium ABG Chloride ABG Glucose Oxyhemoglobin Carboxyhemoglobin Sodium Potassium Chloride Carbon Dioxide BUN Creatinine Glucose POC Glucose 170 H 175 H 229 H Lactic Acid Calcium Phosphorus Magnesium Ferritin Total Bilirubin Direct Bilirubin AST ALT Alkaline Phosphatase Lactate Dehydrogenase C-Reactive Protein Total Protein Albumin Triglycerides Lipase Arterial Blood Glucose Arterial Blood Ionized Calcium Urine WBC (Auto) Coronavirus (PCR) SARS-CoV-2 IgG Ab Crossmatch 06/25/20 06/26/20 06/26/20 23:55 02:17 02:17 WBC RBC Hgb 10.0 L Hct 30.4 L MCV MCH MCHC RDW Lymph % (Auto) [place] % (Auto) Lymph # (Auto) [place] # (Auto) Baso # (Auto) Seg Neutrophils % Seg Neuts % (Manual) Lymphocytes % (Manual) Nucleated RBC % Seg Neutrophils # Seg Neutrophils # Man Lymphocytes # (Manual) Monocytes # (Manual) Eosinophils # (Manual) PT INR APTT D-Dimer Heparin Anti-Xa Level ABG pH POC ABG pCO2 POC ABG pO2 ABG pO2 ABG HCO3 ABG O2 Saturation ABG Base Excess ABG Hemoglobin ABG Oxyhemoglobin ABG Sodium ABG Potassium ABG Chloride ABG Glucose Oxyhemoglobin Carboxyhemoglobin Sodium 136 L Potassium Chloride 90.1 L Carbon Dioxide 39 H BUN Creatinine 0.2 L Glucose 232 H POC Glucose 192 H Lactic Acid Calcium Phosphorus Magnesium Ferritin Total Bilirubin Direct Bilirubin AST ALT Alkaline Phosphatase Lactate Dehydrogenase C-Reactive Protein Total Protein 6.1 L Albumin 2.9 L Triglycerides Lipase Arterial Blood Glucose Arterial Blood Ionized Calcium Urine WBC (Auto) Coronavirus (PCR) SARS-CoV-2 IgG Ab Crossmatch 06/26/20 06/26/20 06/26/20 04:15 04:49 05:28 WBC RBC Hgb Hct MCV MCH MCHC RDW Lymph % (Auto) [place] % (Auto) Lymph # (Auto) [place] # (Auto) Baso # (Auto) Seg Neutrophils % Seg Neuts % (Manual) Lymphocytes % (Manual) Nucleated RBC % Seg Neutrophils # Seg Neutrophils # Man Lymphocytes # (Manual) Monocytes # (Manual) Eosinophils # (Manual) PT INR APTT D-Dimer Heparin Anti-Xa Level ABG pH 7.453 H POC ABG pCO2 59.6 H POC ABG pO2 ABG pO2 ABG HCO3 ABG O2 Saturation ABG Base Excess ABG Hemoglobin 10.0 L ABG Oxyhemoglobin ABG Sodium 134.2 L ABG Potassium 3.3 L ABG Chloride 92.0 L ABG Glucose 305 H Oxyhemoglobin Carboxyhemoglobin Sodium Potassium Chloride Carbon Dioxide BUN Creatinine Glucose POC Glucose 234 H Lactic Acid Calcium Phosphorus Magnesium Ferritin Total Bilirubin Direct Bilirubin AST ALT Alkaline Phosphatase Lactate Dehydrogenase C-Reactive Protein Total Protein Albumin Triglycerides 203 H Lipase Arterial Blood Glucose 305 H Arterial Blood Ionized Calcium Urine WBC (Auto) Coronavirus (PCR) SARS-CoV-2 IgG Ab Crossmatch 06/26/20 06/26/20 06/26/20 11:58 17:58 21:32 WBC RBC Hgb Hct MCV MCH MCHC RDW Lymph % (Auto) [place] % (Auto) Lymph # (Auto) [place] # (Auto) Baso # (Auto) Seg Neutrophils % Seg Neuts % (Manual) Lymphocytes % (Manual) Nucleated RBC % Seg Neutrophils # Seg Neutrophils # Man Lymphocytes # (Manual) Monocytes # (Manual) Eosinophils # (Manual) PT INR APTT D-Dimer Heparin Anti-Xa Level ABG pH POC ABG pCO2 POC ABG pO2 ABG pO2 ABG HCO3 ABG O2 Saturation ABG Base Excess ABG Hemoglobin ABG Oxyhemoglobin ABG Sodium ABG Potassium ABG Chloride ABG Glucose Oxyhemoglobin Carboxyhemoglobin Sodium Potassium Chloride Carbon Dioxide BUN Creatinine Glucose POC Glucose 198 H 193 H 191 H Lactic Acid Calcium Phosphorus Magnesium Ferritin Total Bilirubin Direct Bilirubin AST ALT Alkaline Phosphatase Lactate Dehydrogenase C-Reactive Protein Total Protein Albumin Triglycerides Lipase Arterial Blood Glucose Arterial Blood Ionized Calcium Urine WBC (Auto) Coronavirus (PCR) SARS-CoV-2 IgG Ab Crossmatch 06/26/20 06/27/20 06/27/20 23:40 04:35 05:32 WBC RBC Hgb Hct MCV MCH MCHC RDW Lymph % (Auto) [place] % (Auto) Lymph # (Auto) [place] # (Auto) Baso # (Auto) Seg Neutrophils % Seg Neuts % (Manual) Lymphocytes % (Manual) Nucleated RBC % Seg Neutrophils # Seg Neutrophils # Man Lymphocytes # (Manual) Monocytes # (Manual) Eosinophils # (Manual) PT INR APTT D-Dimer Heparin Anti-Xa Level ABG pH 7.464 H POC ABG pCO2 60.8 H POC ABG pO2 ABG pO2 ABG HCO3 ABG O2 Saturation ABG Base Excess ABG Hemoglobin 10.1 L ABG Oxyhemoglobin ABG Sodium ABG Potassium 2.9 L ABG Chloride 92.0 L ABG Glucose 298 H Oxyhemoglobin Carboxyhemoglobin Sodium Potassium Chloride Carbon Dioxide BUN Creatinine Glucose POC Glucose 241 H 211 H Lactic Acid Calcium Phosphorus Magnesium Ferritin Total Bilirubin Direct Bilirubin AST ALT Alkaline Phosphatase Lactate Dehydrogenase C-Reactive Protein Total Protein Albumin Triglycerides Lipase Arterial Blood Glucose 298 H Arterial Blood Ionized Calcium Urine WBC (Auto) Coronavirus (PCR) SARS-CoV-2 IgG Ab Crossmatch 06/27/20 06/27/20 06/27/20 12:37 18:08 20:52 WBC RBC Hgb Hct MCV MCH MCHC RDW Lymph % (Auto) [place] % (Auto) Lymph # (Auto) [place] # (Auto) Baso # (Auto) Seg Neutrophils % Seg Neuts % (Manual) Lymphocytes % (Manual) Nucleated RBC % Seg Neutrophils # Seg Neutrophils # Man Lymphocytes # (Manual) Monocytes # (Manual) Eosinophils # (Manual) PT INR APTT D-Dimer Heparin Anti-Xa Level ABG pH POC ABG pCO2 POC ABG pO2 ABG pO2 ABG HCO3 ABG O2 Saturation ABG Base Excess ABG Hemoglobin ABG Oxyhemoglobin ABG Sodium ABG Potassium ABG Chloride ABG Glucose Oxyhemoglobin Carboxyhemoglobin Sodium Potassium Chloride Carbon Dioxide BUN Creatinine Glucose POC Glucose 182 H 197 H 195 H Lactic Acid Calcium Phosphorus Magnesium Ferritin Total Bilirubin Direct Bilirubin AST ALT Alkaline Phosphatase Lactate Dehydrogenase C-Reactive Protein Total Protein Albumin Triglycerides Lipase Arterial Blood Glucose Arterial Blood Ionized Calcium Urine WBC (Auto) Coronavirus (PCR) SARS-CoV-2 IgG Ab Crossmatch 06/27/20 06/28/20 06/28/20 Unknown 04:17 04:50 WBC RBC Hgb Hct MCV MCH MCHC RDW Lymph % (Auto) [place] % (Auto) Lymph # (Auto) [place] # (Auto) Baso # (Auto) Seg Neutrophils % Seg Neuts % (Manual) Lymphocytes % (Manual) Nucleated RBC % Seg Neutrophils # Seg Neutrophils # Man Lymphocytes # (Manual) Monocytes # (Manual) Eosinophils # (Manual) PT INR APTT D-Dimer Heparin Anti-Xa Level ABG pH POC ABG pCO2 58.6 H POC ABG pO2 60.1 L ABG pO2 ABG HCO3 ABG O2 Saturation ABG Base Excess ABG Hemoglobin 10.0 L ABG Oxyhemoglobin ABG Sodium 125.3 L ABG Potassium ABG Chloride 93.0 L ABG Glucose 308 H Oxyhemoglobin Carboxyhemoglobin Sodium Potassium 2.9 L* Chloride 93.4 L Carbon Dioxide 42 H* BUN Creatinine 0.3 L Glucose 211 H POC Glucose 252 H Lactic Acid Calcium 8.1 L Phosphorus Magnesium Ferritin Total Bilirubin Direct Bilirubin AST ALT Alkaline Phosphatase Lactate Dehydrogenase C-Reactive Protein Total Protein 5.1 L Albumin 2.4 L Triglycerides Lipase Arterial Blood Glucose 308 H Arterial Blood Ionized Calcium Urine WBC (Auto) Coronavirus (PCR) SARS-CoV-2 IgG Ab Crossmatch 06/28/20 06/28/20 06/28/20 06:35 06:35 11:36 WBC 18.9 H RBC 2.85 L Hgb 9.5 L Hct 28.4 L MCV 100 H MCH 33 H MCHC RDW 17.3 H Lymph % (Auto) [place] % (Auto) Lymph # (Auto) [place] # (Auto) Baso # (Auto) Seg Neutrophils % 88.6 H Seg Neuts % (Manual) 95.0 H Lymphocytes % (Manual) 1.0 L Nucleated RBC % Seg Neutrophils # 15.9 H Seg Neutrophils # Man 18.0 H Lymphocytes # (Manual) 0.2 L Monocytes # (Manual) Eosinophils # (Manual) PT INR APTT D-Dimer Heparin Anti-Xa Level ABG pH POC ABG pCO2 POC ABG pO2 ABG pO2 ABG HCO3 ABG O2 Saturation ABG Base Excess ABG Hemoglobin ABG Oxyhemoglobin ABG Sodium ABG Potassium ABG Chloride ABG Glucose Oxyhemoglobin Carboxyhemoglobin Sodium Potassium Chloride 94.2 L Carbon Dioxide 38 H BUN Creatinine 0.3 L Glucose 228 H POC Glucose 243 H Lactic Acid Calcium Phosphorus Magnesium Ferritin Total Bilirubin Direct Bilirubin AST ALT Alkaline Phosphatase Lactate Dehydrogenase C-Reactive Protein Total Protein 6.1 L Albumin 2.7 L Triglycerides Lipase Arterial Blood Glucose Arterial Blood Ionized Calcium Urine WBC (Auto) Coronavirus (PCR) SARS-CoV-2 IgG Ab Crossmatch 06/28/20 06/28/20 06/29/20 16:53 21:10 00:06 WBC RBC Hgb Hct MCV MCH MCHC RDW Lymph % (Auto) [place] % (Auto) Lymph # (Auto) [place] # (Auto) Baso # (Auto) Seg Neutrophils % Seg Neuts % (Manual) Lymphocytes % (Manual) Nucleated RBC % Seg Neutrophils # Seg Neutrophils # Man Lymphocytes # (Manual) Monocytes # (Manual) Eosinophils # (Manual) PT INR APTT D-Dimer Heparin Anti-Xa Level ABG pH POC ABG pCO2 POC ABG pO2 ABG pO2 ABG HCO3 ABG O2 Saturation ABG Base Excess ABG Hemoglobin ABG Oxyhemoglobin ABG Sodium ABG Potassium ABG Chloride ABG Glucose Oxyhemoglobin Carboxyhemoglobin Sodium Potassium Chloride Carbon Dioxide BUN Creatinine Glucose POC Glucose 211 H 195 H 200 H Lactic Acid Calcium Phosphorus Magnesium Ferritin Total Bilirubin Direct Bilirubin AST ALT Alkaline Phosphatase Lactate Dehydrogenase C-Reactive Protein Total Protein Albumin Triglycerides Lipase Arterial Blood Glucose Arterial Blood Ionized Calcium Urine WBC (Auto) Coronavirus (PCR) SARS-CoV-2 IgG Ab Crossmatch 06/29/20 06/29/20 06/29/20 03:11 04:00 04:00 WBC 18.8 H RBC 2.82 L Hgb 10.1 L Hct 28.5 L MCV 101 H MCH 36 H MCHC 36 H RDW 17.5 H Lymph % (Auto) 10.7 L [place] % (Auto) Lymph # (Auto) [place] # (Auto) 1.0 H Baso # (Auto) 0.3 H Seg Neutrophils % 82.2 H Seg Neuts % (Manual) Lymphocytes % (Manual) Nucleated RBC % Seg Neutrophils # 15.5 H Seg Neutrophils # Man Lymphocytes # (Manual) Monocytes # (Manual) Eosinophils # (Manual) PT INR APTT D-Dimer Heparin Anti-Xa Level ABG pH POC ABG pCO2 57.5 H POC ABG pO2 69.1 L ABG pO2 ABG HCO3 ABG O2 Saturation ABG Base Excess ABG Hemoglobin 10.2 L ABG Oxyhemoglobin 92.3 L ABG Sodium 130.7 L ABG Potassium 3.2 L ABG Chloride 93.0 L ABG Glucose 228 H Oxyhemoglobin Carboxyhemoglobin Sodium 134 L Potassium 3.3 L Chloride 89.5 L Carbon Dioxide 40 H BUN Creatinine 0.2 L Glucose 190 H POC Glucose Lactic Acid Calcium Phosphorus Magnesium Ferritin Total Bilirubin Direct Bilirubin AST < 5 L ALT < 5 L Alkaline Phosphatase Lactate Dehydrogenase C-Reactive Protein Total Protein 5.9 L Albumin 2.2 L Triglycerides Lipase Arterial Blood Glucose 228 H Arterial Blood Ionized Calcium Urine WBC (Auto) Coronavirus (PCR) SARS-CoV-2 IgG Ab Crossmatch 06/29/20 06/29/20 06/29/20 05:00 05:23 09:36 WBC RBC Hgb Hct MCV MCH MCHC RDW Lymph % (Auto) [place] % (Auto) Lymph # (Auto) [place] # (Auto) Baso # (Auto) Seg Neutrophils % Seg Neuts % (Manual) Lymphocytes % (Manual) Nucleated RBC % Seg Neutrophils # Seg Neutrophils # Man Lymphocytes # (Manual) Monocytes # (Manual) Eosinophils # (Manual) PT INR APTT D-Dimer Heparin Anti-Xa Level ABG pH POC ABG pCO2 POC ABG pO2 ABG pO2 ABG HCO3 ABG O2 Saturation ABG Base Excess ABG Hemoglobin ABG Oxyhemoglobin ABG Sodium ABG Potassium ABG Chloride ABG Glucose Oxyhemoglobin Carboxyhemoglobin Sodium Potassium Chloride Carbon Dioxide BUN Creatinine Glucose POC Glucose 165 H Lactic Acid Calcium Phosphorus Magnesium Ferritin Total Bilirubin Direct Bilirubin AST ALT Alkaline Phosphatase Lactate Dehydrogenase C-Reactive Protein Total Protein Albumin Triglycerides 1544 H 1799 H Lipase Arterial Blood Glucose Arterial Blood Ionized Calcium Urine WBC (Auto) Coronavirus (PCR) SARS-CoV-2 IgG Ab Crossmatch 06/29/20 06/29/20 06/29/20 09:36 12:02 18:00 WBC RBC Hgb Hct MCV MCH MCHC RDW Lymph % (Auto) [place] % (Auto) Lymph # (Auto) [place] # (Auto) Baso # (Auto) Seg Neutrophils % Seg Neuts % (Manual) Lymphocytes % (Manual) Nucleated RBC % Seg Neutrophils # Seg Neutrophils # Man Lymphocytes # (Manual) Monocytes # (Manual) Eosinophils # (Manual) PT INR APTT D-Dimer Heparin Anti-Xa Level ABG pH POC ABG pCO2 POC ABG pO2 ABG pO2 ABG HCO3 ABG O2 Saturation ABG Base Excess ABG Hemoglobin ABG Oxyhemoglobin ABG Sodium ABG Potassium ABG Chloride ABG Glucose Oxyhemoglobin Carboxyhemoglobin Sodium Potassium Chloride Carbon Dioxide BUN Creatinine Glucose POC Glucose 197 H 187 H Lactic Acid Calcium Phosphorus Magnesium Ferritin Total Bilirubin Direct Bilirubin AST ALT Alkaline Phosphatase Lactate Dehydrogenase C-Reactive Protein Total Protein Albumin Triglycerides Lipase 86 H Arterial Blood Glucose Arterial Blood Ionized Calcium Urine WBC (Auto) Coronavirus (PCR) SARS-CoV-2 IgG Ab Crossmatch 06/29/20 06/30/20 06/30/20 23:33 03:46 05:50 WBC RBC Hgb Hct MCV MCH MCHC RDW Lymph % (Auto) [place] % (Auto) Lymph # (Auto) [place] # (Auto) Baso # (Auto) Seg Neutrophils % Seg Neuts % (Manual) Lymphocytes % (Manual) Nucleated RBC % Seg Neutrophils # Seg Neutrophils # Man Lymphocytes # (Manual) Monocytes # (Manual) Eosinophils # (Manual) PT INR APTT D-Dimer Heparin Anti-Xa Level ABG pH 7.466 H POC ABG pCO2 57.3 H POC ABG pO2 66.1 L ABG pO2 ABG HCO3 ABG O2 Saturation ABG Base Excess ABG Hemoglobin 10.2 L ABG Oxyhemoglobin 92.3 L ABG Sodium 134.4 L ABG Potassium 3.2 L ABG Chloride 94.0 L ABG Glucose 178 H Oxyhemoglobin Carboxyhemoglobin Sodium Potassium Chloride Carbon Dioxide BUN Creatinine Glucose POC Glucose 170 H 170 H Lactic Acid Calcium Phosphorus Magnesium Ferritin Total Bilirubin Direct Bilirubin AST ALT Alkaline Phosphatase Lactate Dehydrogenase C-Reactive Protein Total Protein Albumin Triglycerides Lipase Arterial Blood Glucose 178 H Arterial Blood Ionized Calcium Urine WBC (Auto) Coronavirus (PCR) SARS-CoV-2 IgG Ab Crossmatch 06/30/20 06/30/20 06/30/20 07:00 07:00 12:04 WBC 15.6 H RBC 2.91 L Hgb 9.8 L Hct 29.7 L MCV 102 H MCH 34 H MCHC RDW 17.8 H Lymph % (Auto) [place] % (Auto) Lymph # (Auto) [place] # (Auto) Baso # (Auto) Seg Neutrophils % Seg Neuts % (Manual) Lymphocytes % (Manual) 5.0 L Nucleated RBC % Seg Neutrophils # Seg Neutrophils # Man 14.8 H Lymphocytes # (Manual) 0.8 L Monocytes # (Manual) Eosinophils # (Manual) PT INR APTT D-Dimer Heparin Anti-Xa Level ABG pH POC ABG pCO2 POC ABG pO2 ABG pO2 ABG HCO3 ABG O2 Saturation ABG Base Excess ABG Hemoglobin ABG Oxyhemoglobin ABG Sodium ABG Potassium ABG Chloride ABG Glucose Oxyhemoglobin Carboxyhemoglobin Sodium Potassium Chloride 93.3 L Carbon Dioxide 43 H* BUN Creatinine 0.3 L Glucose 260 H POC Glucose 245 H Lactic Acid Calcium Phosphorus Magnesium Ferritin Total Bilirubin Direct Bilirubin AST ALT Alkaline Phosphatase Lactate Dehydrogenase C-Reactive Protein Total Protein Albumin 2.8 L Triglycerides 452 H Lipase Arterial Blood Glucose Arterial Blood Ionized Calcium Urine WBC (Auto) Coronavirus (PCR) SARS-CoV-2 IgG Ab Crossmatch 06/30/20 07/01/20 07/01/20 17:32 00:02 05:02 WBC RBC Hgb Hct MCV MCH MCHC RDW Lymph % (Auto) [place] % (Auto) Lymph # (Auto) [place] # (Auto) Baso # (Auto) Seg Neutrophils % Seg Neuts % (Manual) Lymphocytes % (Manual) Nucleated RBC % Seg Neutrophils # Seg Neutrophils # Man Lymphocytes # (Manual) Monocytes # (Manual) Eosinophils # (Manual) PT INR APTT D-Dimer Heparin Anti-Xa Level ABG pH POC ABG pCO2 58.1 H POC ABG pO2 ABG pO2 ABG HCO3 ABG O2 Saturation ABG Base Excess ABG Hemoglobin 11.2 L ABG Oxyhemoglobin ABG Sodium 132.7 L ABG Potassium ABG Chloride 92.0 L ABG Glucose 238 H Oxyhemoglobin Carboxyhemoglobin Sodium Potassium Chloride Carbon Dioxide BUN Creatinine Glucose POC Glucose 209 H 208 H Lactic Acid Calcium Phosphorus Magnesium Ferritin Total Bilirubin Direct Bilirubin AST ALT Alkaline Phosphatase Lactate Dehydrogenase C-Reactive Protein Total Protein Albumin Triglycerides Lipase Arterial Blood Glucose 238 H Arterial Blood Ionized Calcium Urine WBC (Auto) Coronavirus (PCR) SARS-CoV-2 IgG Ab Crossmatch 07/01/20 07/01/20 07/01/20 06:16 06:41 06:41 WBC 18.1 H RBC 2.33 L Hgb 7.1 L Hct 21.3 L D MCV MCH MCHC RDW Lymph % (Auto) [place] % (Auto) Lymph # (Auto) [place] # (Auto) Baso # (Auto) Seg Neutrophils % Seg Neuts % (Manual) 82.0 H Lymphocytes % (Manual) 7.0 L Nucleated RBC % 1.0 H Seg Neutrophils # Seg Neutrophils # Man 14.8 H Lymphocytes # (Manual) Monocytes # (Manual) 1.1 H Eosinophils # (Manual) 0.5 H PT INR APTT D-Dimer Heparin Anti-Xa Level < 0.10 L ABG pH POC ABG pCO2 POC ABG pO2 ABG pO2 ABG HCO3 ABG O2 Saturation ABG Base Excess ABG Hemoglobin ABG Oxyhemoglobin ABG Sodium ABG Potassium ABG Chloride ABG Glucose Oxyhemoglobin Carboxyhemoglobin Sodium Potassium Chloride Carbon Dioxide BUN Creatinine Glucose POC Glucose 180 H Lactic Acid Calcium Phosphorus Magnesium Ferritin Total Bilirubin Direct Bilirubin AST ALT Alkaline Phosphatase Lactate Dehydrogenase C-Reactive Protein Total Protein Albumin Triglycerides Lipase Arterial Blood Glucose Arterial Blood Ionized Calcium Urine WBC (Auto) Coronavirus (PCR) SARS-CoV-2 IgG Ab Crossmatch 07/01/20 07/01/20 07/01/20 08:11 12:04 16:16 WBC RBC Hgb Hct MCV MCH MCHC RDW Lymph % (Auto) [place] % (Auto) Lymph # (Auto) [place] # (Auto) Baso # (Auto) Seg Neutrophils % Seg Neuts % (Manual) Lymphocytes % (Manual) Nucleated RBC % Seg Neutrophils # Seg Neutrophils # Man Lymphocytes # (Manual) Monocytes # (Manual) Eosinophils # (Manual) PT INR APTT D-Dimer Heparin Anti-Xa Level 1.02 H ABG pH POC ABG pCO2 POC ABG pO2 ABG pO2 ABG HCO3 ABG O2 Saturation ABG Base Excess ABG Hemoglobin ABG Oxyhemoglobin ABG Sodium ABG Potassium ABG Chloride ABG Glucose Oxyhemoglobin Carboxyhemoglobin Sodium 135 L Potassium 3.0 L Chloride 93.1 L Carbon Dioxide 40 H BUN Creatinine 0.3 L Glucose 140 H POC Glucose 223 H Lactic Acid Calcium Phosphorus Magnesium Ferritin Total Bilirubin Direct Bilirubin AST ALT Alkaline Phosphatase Lactate Dehydrogenase C-Reactive Protein Total Protein Albumin Triglycerides Lipase Arterial Blood Glucose Arterial Blood Ionized Calcium Urine WBC (Auto) Coronavirus (PCR) SARS-CoV-2 IgG Ab Crossmatch 07/01/20 07/01/20 07/02/20 17:09 23:19 00:56 WBC RBC Hgb Hct MCV MCH MCHC RDW Lymph % (Auto) [place] % (Auto) Lymph # (Auto) [place] # (Auto) Baso # (Auto) Seg Neutrophils % Seg Neuts % (Manual) Lymphocytes % (Manual) Nucleated RBC % Seg Neutrophils # Seg Neutrophils # Man Lymphocytes # (Manual) Monocytes # (Manual) Eosinophils # (Manual) PT INR APTT D-Dimer Heparin Anti-Xa Level 0.22 L ABG pH POC ABG pCO2 POC ABG pO2 ABG pO2 ABG HCO3 ABG O2 Saturation ABG Base Excess ABG Hemoglobin ABG Oxyhemoglobin ABG Sodium ABG Potassium ABG Chloride ABG Glucose Oxyhemoglobin Carboxyhemoglobin Sodium Potassium Chloride Carbon Dioxide BUN Creatinine Glucose POC Glucose 233 H 255 H Lactic Acid Calcium Phosphorus Magnesium Ferritin Total Bilirubin Direct Bilirubin AST ALT Alkaline Phosphatase Lactate Dehydrogenase C-Reactive Protein Total Protein Albumin Triglycerides Lipase Arterial Blood Glucose Arterial Blood Ionized Calcium Urine WBC (Auto) Coronavirus (PCR) SARS-CoV-2 IgG Ab Crossmatch 07/02/20 07/02/20 07/02/20 03:51 05:35 11:39 WBC RBC Hgb Hct MCV MCH MCHC RDW Lymph % (Auto) [place] % (Auto) Lymph # (Auto) [place] # (Auto) Baso # (Auto) Seg Neutrophils % Seg Neuts % (Manual) Lymphocytes % (Manual) Nucleated RBC % Seg Neutrophils # Seg Neutrophils # Man Lymphocytes # (Manual) Monocytes # (Manual) Eosinophils # (Manual) PT INR APTT D-Dimer Heparin Anti-Xa Level ABG pH POC ABG pCO2 54.9 H POC ABG pO2 52.1 L ABG pO2 ABG HCO3 ABG O2 Saturation ABG Base Excess ABG Hemoglobin 11.9 L ABG Oxyhemoglobin 82.8 L ABG Sodium 130.2 L ABG Potassium ABG Chloride 92.0 L ABG Glucose 249 H Oxyhemoglobin Carboxyhemoglobin 1.9 H Sodium Potassium Chloride Carbon Dioxide BUN Creatinine Glucose POC Glucose 205 H 235 H Lactic Acid Calcium Phosphorus Magnesium Ferritin Total Bilirubin Direct Bilirubin AST ALT Alkaline Phosphatase Lactate Dehydrogenase C-Reactive Protein Total Protein Albumin Triglycerides Lipase Arterial Blood Glucose 249 H Arterial Blood Ionized Calcium Urine WBC (Auto) Coronavirus (PCR) SARS-CoV-2 IgG Ab Crossmatch 07/02/20 07/02/20 07/02/20 16:08 16:08 17:54 WBC 19.8 H RBC 3.28 L Hgb 10.7 L D Hct 32.7 L D MCV 100 H MCH 33 H MCHC RDW 17.2 H Lymph % (Auto) [place] % (Auto) Lymph # (Auto) [place] # (Auto) Baso # (Auto) Seg Neutrophils % Seg Neuts % (Manual) Lymphocytes % (Manual) Nucleated RBC % Seg Neutrophils # Seg Neutrophils # Man Lymphocytes # (Manual) Monocytes # (Manual) Eosinophils # (Manual) PT INR APTT D-Dimer Heparin Anti-Xa Level ABG pH POC ABG pCO2 POC ABG pO2 ABG pO2 ABG HCO3 ABG O2 Saturation ABG Base Excess ABG Hemoglobin ABG Oxyhemoglobin ABG Sodium ABG Potassium ABG Chloride ABG Glucose Oxyhemoglobin Carboxyhemoglobin Sodium 136 L Potassium Chloride 92.4 L Carbon Dioxide 35 H BUN Creatinine 0.3 L Glucose 203 H POC Glucose 175 H Lactic Acid Calcium Phosphorus Magnesium Ferritin Total Bilirubin Direct Bilirubin AST ALT Alkaline Phosphatase Lactate Dehydrogenase C-Reactive Protein Total Protein Albumin Triglycerides Lipase Arterial Blood Glucose Arterial Blood Ionized Calcium Urine WBC (Auto) Coronavirus (PCR) SARS-CoV-2 IgG Ab Crossmatch 07/02/20 07/03/20 07/03/20 23:46 03:25 05:54 WBC RBC Hgb Hct MCV MCH MCHC RDW Lymph % (Auto) [place] % (Auto) Lymph # (Auto) [place] # (Auto) Baso # (Auto) Seg Neutrophils % Seg Neuts % (Manual) Lymphocytes % (Manual) Nucleated RBC % Seg Neutrophils # Seg Neutrophils # Man Lymphocytes # (Manual) Monocytes # (Manual) Eosinophils # (Manual) PT INR APTT D-Dimer Heparin Anti-Xa Level ABG pH 7.468 H POC ABG pCO2 51.5 H POC ABG pO2 ABG pO2 ABG HCO3 ABG O2 Saturation ABG Base Excess ABG Hemoglobin ABG Oxyhemoglobin ABG Sodium 130.2 L ABG Potassium ABG Chloride 91.0 L ABG Glucose 210 H Oxyhemoglobin Carboxyhemoglobin 1.6 H Sodium Potassium Chloride Carbon Dioxide BUN Creatinine Glucose POC Glucose 173 H 125 H Lactic Acid Calcium Phosphorus Magnesium Ferritin Total Bilirubin Direct Bilirubin AST ALT Alkaline Phosphatase Lactate Dehydrogenase C-Reactive Protein Total Protein Albumin Triglycerides Lipase Arterial Blood Glucose 210 H Arterial Blood Ionized Calcium Urine WBC (Auto) Coronavirus (PCR) SARS-CoV-2 IgG Ab Crossmatch 07/03/20 07/03/20 07/03/20 11:43 12:20 12:20 WBC 16.5 H RBC 3.13 L Hgb 10.4 L Hct 31.8 L MCV 102 H MCH 33 H MCHC RDW 17.2 H Lymph % (Auto) [place] % (Auto) Lymph # (Auto) [place] # (Auto) Baso # (Auto) Seg Neutrophils % Seg Neuts % (Manual) Lymphocytes % (Manual) Nucleated RBC % Seg Neutrophils # Seg Neutrophils # Man Lymphocytes # (Manual) Monocytes # (Manual) Eosinophils # (Manual) PT INR APTT D-Dimer Heparin Anti-Xa Level ABG pH POC ABG pCO2 POC ABG pO2 ABG pO2 ABG HCO3 ABG O2 Saturation ABG Base Excess ABG Hemoglobin ABG Oxyhemoglobin ABG Sodium ABG Potassium ABG Chloride ABG Glucose Oxyhemoglobin Carboxyhemoglobin Sodium 132 L Potassium Chloride 88.5 L Carbon Dioxide 37 H BUN Creatinine 0.3 L Glucose 230 H POC Glucose 223 H Lactic Acid Calcium Phosphorus Magnesium Ferritin Total Bilirubin Direct Bilirubin AST ALT Alkaline Phosphatase Lactate Dehydrogenase C-Reactive Protein Total Protein Albumin Triglycerides Lipase Arterial Blood Glucose Arterial Blood Ionized Calcium Urine WBC (Auto) Coronavirus (PCR) SARS-CoV-2 IgG Ab Crossmatch 07/03/20 07/03/20 07/04/20 17:24 21:41 00:54 WBC RBC Hgb Hct MCV MCH MCHC RDW Lymph % (Auto) [place] % (Auto) Lymph # (Auto) [place] # (Auto) Baso # (Auto) Seg Neutrophils % Seg Neuts % (Manual) Lymphocytes % (Manual) Nucleated RBC % Seg Neutrophils # Seg Neutrophils # Man Lymphocytes # (Manual) Monocytes # (Manual) Eosinophils # (Manual) PT INR APTT D-Dimer Heparin Anti-Xa Level ABG pH POC ABG pCO2 POC ABG pO2 ABG pO2 ABG HCO3 ABG O2 Saturation ABG Base Excess ABG Hemoglobin ABG Oxyhemoglobin ABG Sodium ABG Potassium ABG Chloride ABG Glucose Oxyhemoglobin Carboxyhemoglobin Sodium Potassium Chloride Carbon Dioxide BUN Creatinine Glucose POC Glucose 163 H 220 H 195 H Lactic Acid Calcium Phosphorus Magnesium Ferritin Total Bilirubin Direct Bilirubin AST ALT Alkaline Phosphatase Lactate Dehydrogenase C-Reactive Protein Total Protein Albumin Triglycerides Lipase Arterial Blood Glucose Arterial Blood Ionized Calcium Urine WBC (Auto) Coronavirus (PCR) SARS-CoV-2 IgG Ab Crossmatch 07/04/20 07/04/20 07/04/20 03:25 04:00 04:00 WBC 14.9 H RBC 2.91 L Hgb 9.5 L Hct 29.2 L MCV 100 H MCH 33 H MCHC RDW 16.7 H Lymph % (Auto) 8.4 L [place] % (Auto) Lymph # (Auto) [place] # (Auto) 1.1 H Baso # (Auto) Seg Neutrophils % 84.2 H Seg Neuts % (Manual) Lymphocytes % (Manual) Nucleated RBC % Seg Neutrophils # 12.6 H Seg Neutrophils # Man Lymphocytes # (Manual) Monocytes # (Manual) Eosinophils # (Manual) PT INR APTT D-Dimer Heparin Anti-Xa Level ABG pH 7.474 H POC ABG pCO2 POC ABG pO2 51.8 L ABG pO2 ABG HCO3 ABG O2 Saturation ABG Base Excess ABG Hemoglobin ABG Oxyhemoglobin ABG Sodium ABG Potassium ABG Chloride ABG Glucose Oxyhemoglobin Carboxyhemoglobin Sodium Potassium 3.4 L Chloride 92.1 L Carbon Dioxide 34 H BUN Creatinine 0.3 L Glucose 173 H POC Glucose Lactic Acid Calcium Phosphorus Magnesium Ferritin Total Bilirubin Direct Bilirubin AST ALT Alkaline Phosphatase Lactate Dehydrogenase C-Reactive Protein Total Protein Albumin Triglycerides Lipase Arterial Blood Glucose Arterial Blood Ionized Calcium Urine WBC (Auto) Coronavirus (PCR) SARS-CoV-2 IgG Ab Crossmatch 07/04/20 07/04/20 07/04/20 06:18 11:39 17:18 WBC RBC Hgb Hct MCV MCH MCHC RDW Lymph % (Auto) [place] % (Auto) Lymph # (Auto) [place] # (Auto) Baso # (Auto) Seg Neutrophils % Seg Neuts % (Manual) Lymphocytes % (Manual) Nucleated RBC % Seg Neutrophils # Seg Neutrophils # Man Lymphocytes # (Manual) Monocytes # (Manual) Eosinophils # (Manual) PT INR APTT D-Dimer Heparin Anti-Xa Level ABG pH POC ABG pCO2 POC ABG pO2 ABG pO2 ABG HCO3 ABG O2 Saturation ABG Base Excess ABG Hemoglobin ABG Oxyhemoglobin ABG Sodium ABG Potassium ABG Chloride ABG Glucose Oxyhemoglobin Carboxyhemoglobin Sodium Potassium Chloride Carbon Dioxide BUN Creatinine Glucose POC Glucose 158 H 257 H 148 H Lactic Acid Calcium Phosphorus Magnesium Ferritin Total Bilirubin Direct Bilirubin AST ALT Alkaline Phosphatase Lactate Dehydrogenase C-Reactive Protein Total Protein Albumin Triglycerides Lipase Arterial Blood Glucose Arterial Blood Ionized Calcium Urine WBC (Auto) Coronavirus (PCR) SARS-CoV-2 IgG Ab Crossmatch 07/04/20 07/05/20 07/05/20 23:23 03:13 05:18 WBC 13.3 H RBC 2.90 L Hgb 9.8 L Hct 29.3 L MCV 101 H MCH 34 H MCHC RDW 17.0 H Lymph % (Auto) 11.1 L [place] % (Auto) Lymph # (Auto) [place] # (Auto) Baso # (Auto) Seg Neutrophils % 82.3 H Seg Neuts % (Manual) Lymphocytes % (Manual) Nucleated RBC % Seg Neutrophils # 10.9 H Seg Neutrophils # Man Lymphocytes # (Manual) Monocytes # (Manual) Eosinophils # (Manual) PT INR APTT D-Dimer Heparin Anti-Xa Level ABG pH 7.48 H POC ABG pCO2 52.0 H POC ABG pO2 ABG pO2 ABG HCO3 ABG O2 Saturation ABG Base Excess ABG Hemoglobin 10.0 L ABG Oxyhemoglobin ABG Sodium 131.0 L ABG Potassium 3.3 L ABG Chloride 93.0 L ABG Glucose 177 H Oxyhemoglobin Carboxyhemoglobin Sodium Potassium Chloride Carbon Dioxide BUN Creatinine Glucose POC Glucose 227 H Lactic Acid Calcium Phosphorus Magnesium Ferritin Total Bilirubin Direct Bilirubin AST ALT Alkaline Phosphatase Lactate Dehydrogenase C-Reactive Protein Total Protein Albumin Triglycerides Lipase Arterial Blood Glucose 177 H Arterial Blood Ionized Calcium Urine WBC (Auto) Coronavirus (PCR) SARS-CoV-2 IgG Ab Crossmatch 07/05/20 07/05/20 07/05/20 05:18 05:25 05:57 WBC RBC Hgb Hct MCV MCH MCHC RDW Lymph % (Auto) [place] % (Auto) Lymph # (Auto) [place] # (Auto) Baso # (Auto) Seg Neutrophils % Seg Neuts % (Manual) Lymphocytes % (Manual) Nucleated RBC % Seg Neutrophils # Seg Neutrophils # Man Lymphocytes # (Manual) Monocytes # (Manual) Eosinophils # (Manual) PT INR APTT D-Dimer Heparin Anti-Xa Level ABG pH 7.519 H POC ABG pCO2 POC ABG pO2 198.6 H ABG pO2 ABG HCO3 ABG O2 Saturation ABG Base Excess ABG Hemoglobin 10.3 L ABG Oxyhemoglobin 98.7 H ABG Sodium 133.6 L ABG Potassium 3.3 L ABG Chloride 93.0 L ABG Glucose 175 H Oxyhemoglobin Carboxyhemoglobin Sodium Potassium 3.4 L Chloride 92.5 L Carbon Dioxide 36 H BUN Creatinine 0.3 L Glucose 148 H POC Glucose 170 H Lactic Acid Calcium Phosphorus Magnesium Ferritin Total Bilirubin Direct Bilirubin AST ALT Alkaline Phosphatase Lactate Dehydrogenase C-Reactive Protein Total Protein Albumin Triglycerides Lipase Arterial Blood Glucose 175 H Arterial Blood Ionized Calcium Urine WBC (Auto) Coronavirus (PCR) SARS-CoV-2 IgG Ab Crossmatch 07/05/20 07/05/20 07/06/20 11:37 18:39 00:04 WBC RBC Hgb Hct MCV MCH MCHC RDW Lymph % (Auto) [place] % (Auto) Lymph # (Auto) [place] # (Auto) Baso # (Auto) Seg Neutrophils % Seg Neuts % (Manual) Lymphocytes % (Manual) Nucleated RBC % Seg Neutrophils # Seg Neutrophils # Man Lymphocytes # (Manual) Monocytes # (Manual) Eosinophils # (Manual) PT INR APTT D-Dimer Heparin Anti-Xa Level ABG pH POC ABG pCO2 POC ABG pO2 ABG pO2 ABG HCO3 ABG O2 Saturation ABG Base Excess ABG Hemoglobin ABG Oxyhemoglobin ABG Sodium ABG Potassium ABG Chloride ABG Glucose Oxyhemoglobin Carboxyhemoglobin Sodium Potassium Chloride Carbon Dioxide BUN Creatinine Glucose POC Glucose 195 H 200 H 222 H Lactic Acid Calcium Phosphorus Magnesium Ferritin Total Bilirubin Direct Bilirubin AST ALT Alkaline Phosphatase Lactate Dehydrogenase C-Reactive Protein Total Protein Albumin Triglycerides Lipase Arterial Blood Glucose Arterial Blood Ionized Calcium Urine WBC (Auto) Coronavirus (PCR) SARS-CoV-2 IgG Ab Crossmatch 07/06/20 07/06/20 07/06/20 05:25 06:52 06:52 WBC 15.8 H RBC 3.17 L Hgb 10.4 L Hct 31.5 L MCV 99 H MCH 33 H MCHC RDW 17.0 H Lymph % (Auto) [place] % (Auto) Lymph # (Auto) [place] # (Auto) Baso # (Auto) Seg Neutrophils % Seg Neuts % (Manual) Lymphocytes % (Manual) Nucleated RBC % Seg Neutrophils # Seg Neutrophils # Man Lymphocytes # (Manual) Monocytes # (Manual) Eosinophils # (Manual) PT INR APTT D-Dimer Heparin Anti-Xa Level ABG pH POC ABG pCO2 POC ABG pO2 ABG pO2 ABG HCO3 ABG O2 Saturation ABG Base Excess ABG Hemoglobin ABG Oxyhemoglobin ABG Sodium ABG Potassium ABG Chloride ABG Glucose Oxyhemoglobin Carboxyhemoglobin Sodium 135 L Potassium 3.4 L Chloride 91.9 L Carbon Dioxide 38 H BUN Creatinine 0.3 L Glucose 189 H POC Glucose 165 H Lactic Acid Calcium Phosphorus Magnesium Ferritin Total Bilirubin Direct Bilirubin AST ALT Alkaline Phosphatase Lactate Dehydrogenase C-Reactive Protein Total Protein Albumin Triglycerides Lipase Arterial Blood Glucose Arterial Blood Ionized Calcium Urine WBC (Auto) Coronavirus (PCR) SARS-CoV-2 IgG Ab Crossmatch 07/06/20 07/06/20 07/06/20 13:01 18:04 23:08 WBC RBC Hgb Hct MCV MCH MCHC RDW Lymph % (Auto) [place] % (Auto) Lymph # (Auto) [place] # (Auto) Baso # (Auto) Seg Neutrophils % Seg Neuts % (Manual) Lymphocytes % (Manual) Nucleated RBC % Seg Neutrophils # Seg Neutrophils # Man Lymphocytes # (Manual) Monocytes # (Manual) Eosinophils # (Manual) PT INR APTT D-Dimer Heparin Anti-Xa Level ABG pH POC ABG pCO2 POC ABG pO2 ABG pO2 ABG HCO3 ABG O2 Saturation ABG Base Excess ABG Hemoglobin ABG Oxyhemoglobin ABG Sodium ABG Potassium ABG Chloride ABG Glucose Oxyhemoglobin Carboxyhemoglobin Sodium Potassium Chloride Carbon Dioxide BUN Creatinine Glucose POC Glucose 195 H 169 H 173 H Lactic Acid Calcium Phosphorus Magnesium Ferritin Total Bilirubin Direct Bilirubin AST ALT Alkaline Phosphatase Lactate Dehydrogenase C-Reactive Protein Total Protein Albumin Triglycerides Lipase Arterial Blood Glucose Arterial Blood Ionized Calcium Urine WBC (Auto) Coronavirus (PCR) SARS-CoV-2 IgG Ab Crossmatch 07/07/20 07/07/20 07/07/20 05:35 05:35 05:39 WBC 17.6 H RBC 3.16 L Hgb 10.4 L Hct 31.5 L MCV 100 H MCH 33 H MCHC RDW 16.7 H Lymph % (Auto) 11.1 L [place] % (Auto) Lymph # (Auto) [place] # (Auto) 1.0 H Baso # (Auto) Seg Neutrophils % 83.0 H Seg Neuts % (Manual) Lymphocytes % (Manual) Nucleated RBC % Seg Neutrophils # 14.6 H Seg Neutrophils # Man Lymphocytes # (Manual) Monocytes # (Manual) Eosinophils # (Manual) PT INR APTT D-Dimer Heparin Anti-Xa Level ABG pH POC ABG pCO2 POC ABG pO2 ABG pO2 ABG HCO3 ABG O2 Saturation ABG Base Excess ABG Hemoglobin ABG Oxyhemoglobin ABG Sodium ABG Potassium ABG Chloride ABG Glucose Oxyhemoglobin Carboxyhemoglobin Sodium 135 L Potassium 3.4 L Chloride 94.3 L Carbon Dioxide 32 H BUN Creatinine 0.2 L Glucose 240 H POC Glucose 191 H Lactic Acid Calcium Phosphorus Magnesium Ferritin Total Bilirubin Direct Bilirubin AST ALT Alkaline Phosphatase Lactate Dehydrogenase C-Reactive Protein Total Protein Albumin Triglycerides Lipase Arterial Blood Glucose Arterial Blood Ionized Calcium Urine WBC (Auto) Coronavirus (PCR) SARS-CoV-2 IgG Ab Crossmatch 07/07/20 07/07/20 07/07/20 12:08 16:39 23:41 WBC RBC Hgb Hct MCV MCH MCHC RDW Lymph % (Auto) [place] % (Auto) Lymph # (Auto) [place] # (Auto) Baso # (Auto) Seg Neutrophils % Seg Neuts % (Manual) Lymphocytes % (Manual) Nucleated RBC % Seg Neutrophils # Seg Neutrophils # Man Lymphocytes # (Manual) Monocytes # (Manual) Eosinophils # (Manual) PT INR APTT D-Dimer Heparin Anti-Xa Level ABG pH POC ABG pCO2 POC ABG pO2 ABG pO2 ABG HCO3 ABG O2 Saturation ABG Base Excess ABG Hemoglobin ABG Oxyhemoglobin ABG Sodium ABG Potassium ABG Chloride ABG Glucose Oxyhemoglobin Carboxyhemoglobin Sodium Potassium Chloride Carbon Dioxide BUN Creatinine Glucose POC Glucose 248 H 209 H 231 H Lactic Acid Calcium Phosphorus Magnesium Ferritin Total Bilirubin Direct Bilirubin AST ALT Alkaline Phosphatase Lactate Dehydrogenase C-Reactive Protein Total Protein Albumin Triglycerides Lipase Arterial Blood Glucose Arterial Blood Ionized Calcium Urine WBC (Auto) Coronavirus (PCR) SARS-CoV-2 IgG Ab Crossmatch 07/08/20 07/08/20 07/08/20 04:58 04:58 05:38 WBC 21.0 H RBC 2.86 L Hgb 9.2 L Hct 28.6 L MCV 100 H MCH MCHC RDW 16.7 H Lymph % (Auto) [place] % (Auto) Lymph # (Auto) [place] # (Auto) Baso # (Auto) Seg Neutrophils % Seg Neuts % (Manual) 93.0 H Lymphocytes % (Manual) 3.0 L Nucleated RBC % Seg Neutrophils # Seg Neutrophils # Man 19.5 H Lymphocytes # (Manual) 0.6 L Monocytes # (Manual) Eosinophils # (Manual) PT INR APTT D-Dimer Heparin Anti-Xa Level ABG pH POC ABG pCO2 POC ABG pO2 ABG pO2 ABG HCO3 ABG O2 Saturation ABG Base Excess ABG Hemoglobin ABG Oxyhemoglobin ABG Sodium ABG Potassium ABG Chloride ABG Glucose Oxyhemoglobin Carboxyhemoglobin Sodium Potassium 3.0 L Chloride Carbon Dioxide BUN Creatinine 0.2 L Glucose 201 H POC Glucose 161 H Lactic Acid Calcium 7.9 L D Phosphorus Magnesium Ferritin Total Bilirubin Direct Bilirubin AST ALT Alkaline Phosphatase Lactate Dehydrogenase C-Reactive Protein Total Protein Albumin Triglycerides Lipase Arterial Blood Glucose Arterial Blood Ionized Calcium Urine WBC (Auto) Coronavirus (PCR) SARS-CoV-2 IgG Ab Crossmatch 07/08/20 07/08/20 07/08/20 12:19 16:26 Unknown WBC RBC Hgb Hct MCV MCH MCHC RDW Lymph % (Auto) [place] % (Auto) Lymph # (Auto) [place] # (Auto) Baso # (Auto) Seg Neutrophils % Seg Neuts % (Manual) Lymphocytes % (Manual) Nucleated RBC % Seg Neutrophils # Seg Neutrophils # Man Lymphocytes # (Manual) Monocytes # (Manual) Eosinophils # (Manual) PT INR APTT D-Dimer Heparin Anti-Xa Level ABG pH POC ABG pCO2 POC ABG pO2 ABG pO2 75.3 L ABG HCO3 34.3 H ABG O2 Saturation ABG Base Excess 8.7 H ABG Hemoglobin 10.2 L ABG Oxyhemoglobin ABG Sodium ABG Potassium ABG Chloride ABG Glucose Oxyhemoglobin 93.7 L Carboxyhemoglobin Sodium Potassium Chloride Carbon Dioxide BUN Creatinine Glucose POC Glucose 152 H 173 H Lactic Acid Calcium Phosphorus Magnesium Ferritin Total Bilirubin Direct Bilirubin AST ALT Alkaline Phosphatase Lactate Dehydrogenase C-Reactive Protein Total Protein Albumin Triglycerides Lipase Arterial Blood Glucose Arterial Blood Ionized Calcium Urine WBC (Auto) Coronavirus (PCR) SARS-CoV-2 IgG Ab Crossmatch 07/09/20 07/09/20 07/09/20 00:01 06:00 11:55 WBC RBC Hgb Hct MCV MCH MCHC RDW Lymph % (Auto) [place] % (Auto) Lymph # (Auto) [place] # (Auto) Baso # (Auto) Seg Neutrophils % Seg Neuts % (Manual) Lymphocytes % (Manual) Nucleated RBC % Seg Neutrophils # Seg Neutrophils # Man Lymphocytes # (Manual) Monocytes # (Manual) Eosinophils # (Manual) PT INR APTT D-Dimer Heparin Anti-Xa Level ABG pH POC ABG pCO2 POC ABG pO2 ABG pO2 ABG HCO3 ABG O2 Saturation ABG Base Excess ABG Hemoglobin ABG Oxyhemoglobin ABG Sodium ABG Potassium ABG Chloride ABG Glucose Oxyhemoglobin Carboxyhemoglobin Sodium Potassium Chloride Carbon Dioxide BUN Creatinine Glucose POC Glucose 207 H 141 H 228 H Lactic Acid Calcium Phosphorus Magnesium Ferritin Total Bilirubin Direct Bilirubin AST ALT Alkaline Phosphatase Lactate Dehydrogenase C-Reactive Protein Total Protein Albumin Triglycerides Lipase Arterial Blood Glucose Arterial Blood Ionized Calcium Urine WBC (Auto) Coronavirus (PCR) SARS-CoV-2 IgG Ab Crossmatch 07/09/20 07/09/20 07/09/20 16:47 23:53 Unknown WBC RBC Hgb Hct MCV MCH MCHC RDW Lymph % (Auto) [place] % (Auto) Lymph # (Auto) [place] # (Auto) Baso # (Auto) Seg Neutrophils % Seg Neuts % (Manual) Lymphocytes % (Manual) Nucleated RBC % Seg Neutrophils # Seg Neutrophils # Man Lymphocytes # (Manual) Monocytes # (Manual) Eosinophils # (Manual) PT INR APTT D-Dimer Heparin Anti-Xa Level ABG pH POC ABG pCO2 POC ABG pO2 ABG pO2 ABG HCO3 ABG O2 Saturation ABG Base Excess ABG Hemoglobin ABG Oxyhemoglobin ABG Sodium ABG Potassium ABG Chloride ABG Glucose Oxyhemoglobin Carboxyhemoglobin Sodium 132 L Potassium Chloride 92.7 L Carbon Dioxide 35 H BUN Creatinine 0.2 L Glucose 234 H POC Glucose 136 H 219 H Lactic Acid Calcium Phosphorus Magnesium Ferritin Total Bilirubin Direct Bilirubin AST ALT Alkaline Phosphatase Lactate Dehydrogenase C-Reactive Protein Total Protein Albumin Triglycerides Lipase Arterial Blood Glucose Arterial Blood Ionized Calcium Urine WBC (Auto) Coronavirus (PCR) SARS-CoV-2 IgG Ab Crossmatch 07/10/20 07/10/20 07/10/20 05:20 12:05 18:38 WBC RBC Hgb Hct MCV MCH MCHC RDW Lymph % (Auto) [place] % (Auto) Lymph # (Auto) [place] # (Auto) Baso # (Auto) Seg Neutrophils % Seg Neuts % (Manual) Lymphocytes % (Manual) Nucleated RBC % Seg Neutrophils # Seg Neutrophils # Man Lymphocytes # (Manual) Monocytes # (Manual) Eosinophils # (Manual) PT INR APTT D-Dimer Heparin Anti-Xa Level ABG pH POC ABG pCO2 POC ABG pO2 ABG pO2 ABG HCO3 ABG O2 Saturation ABG Base Excess ABG Hemoglobin ABG Oxyhemoglobin ABG Sodium ABG Potassium ABG Chloride ABG Glucose Oxyhemoglobin Carboxyhemoglobin Sodium Potassium Chloride Carbon Dioxide BUN Creatinine Glucose POC Glucose 221 H 174 H 152 H Lactic Acid Calcium Phosphorus Magnesium Ferritin Total Bilirubin Direct Bilirubin AST ALT Alkaline Phosphatase Lactate Dehydrogenase C-Reactive Protein Total Protein Albumin Triglycerides Lipase Arterial Blood Glucose Arterial Blood Ionized Calcium Urine WBC (Auto) Coronavirus (PCR) SARS-CoV-2 IgG Ab Crossmatch 07/11/20 07/11/20 07/11/20 00:16 05:42 08:13 WBC 11.9 H RBC 3.13 L Hgb 10.2 L Hct 31.2 L MCV 100 H MCH 33 H MCHC RDW 16.4 H Lymph % (Auto) [place] % (Auto) 9.3 H Lymph # (Auto) [place] # (Auto) 1.1 H Baso # (Auto) Seg Neutrophils % 72.7 H Seg Neuts % (Manual) Lymphocytes % (Manual) Nucleated RBC % Seg Neutrophils # 8.7 H Seg Neutrophils # Man Lymphocytes # (Manual) Monocytes # (Manual) Eosinophils # (Manual) PT INR APTT D-Dimer Heparin Anti-Xa Level ABG pH POC ABG pCO2 POC ABG pO2 ABG pO2 ABG HCO3 ABG O2 Saturation ABG Base Excess ABG Hemoglobin ABG Oxyhemoglobin ABG Sodium ABG Potassium ABG Chloride ABG Glucose Oxyhemoglobin Carboxyhemoglobin Sodium Potassium Chloride Carbon Dioxide BUN Creatinine Glucose POC Glucose 170 H 186 H Lactic Acid Calcium Phosphorus Magnesium Ferritin Total Bilirubin Direct Bilirubin AST ALT Alkaline Phosphatase Lactate Dehydrogenase C-Reactive Protein Total Protein Albumin Triglycerides Lipase Arterial Blood Glucose Arterial Blood Ionized Calcium Urine WBC (Auto) Coronavirus (PCR) SARS-CoV-2 IgG Ab Crossmatch 07/11/20 07/11/20 07/11/20 08:13 11:35 18:07 WBC RBC Hgb Hct MCV MCH MCHC RDW Lymph % (Auto) [place] % (Auto) Lymph # (Auto) [place] # (Auto) Baso # (Auto) Seg Neutrophils % Seg Neuts % (Manual) Lymphocytes % (Manual) Nucleated RBC % Seg Neutrophils # Seg Neutrophils # Man Lymphocytes # (Manual) Monocytes # (Manual) Eosinophils # (Manual) PT INR APTT D-Dimer Heparin Anti-Xa Level ABG pH POC ABG pCO2 POC ABG pO2 ABG pO2 ABG HCO3 ABG O2 Saturation ABG Base Excess ABG Hemoglobin ABG Oxyhemoglobin ABG Sodium ABG Potassium ABG Chloride ABG Glucose Oxyhemoglobin Carboxyhemoglobin Sodium 135 L Potassium Chloride 92.8 L Carbon Dioxide 38 H BUN Creatinine 0.2 L Glucose 132 H POC Glucose 129 H 156 H Lactic Acid Calcium Phosphorus Magnesium Ferritin Total Bilirubin Direct Bilirubin AST ALT Alkaline Phosphatase Lactate Dehydrogenase C-Reactive Protein Total Protein Albumin Triglycerides Lipase Arterial Blood Glucose Arterial Blood Ionized Calcium Urine WBC (Auto) Coronavirus (PCR) SARS-CoV-2 IgG Ab Crossmatch 07/11/20 07/11/20 07/12/20 18:36 23:18 05:28 WBC RBC Hgb Hct MCV MCH MCHC RDW Lymph % (Auto) [place] % (Auto) Lymph # (Auto) [place] # (Auto) Baso # (Auto) Seg Neutrophils % Seg Neuts % (Manual) Lymphocytes % (Manual) Nucleated RBC % Seg Neutrophils # Seg Neutrophils # Man Lymphocytes # (Manual) Monocytes # (Manual) Eosinophils # (Manual) PT INR APTT D-Dimer Heparin Anti-Xa Level ABG pH POC ABG pCO2 POC ABG pO2 70.9 L ABG pO2 ABG HCO3 ABG O2 Saturation ABG Base Excess ABG Hemoglobin 10.8 L ABG Oxyhemoglobin 92.5 L ABG Sodium 131.8 L ABG Potassium 3.2 L ABG Chloride 91.0 L ABG Glucose 181 H Oxyhemoglobin Carboxyhemoglobin Sodium Potassium Chloride Carbon Dioxide BUN Creatinine Glucose POC Glucose 189 H 190 H Lactic Acid Calcium Phosphorus Magnesium Ferritin Total Bilirubin Direct Bilirubin AST ALT Alkaline Phosphatase Lactate Dehydrogenase C-Reactive Protein Total Protein Albumin Triglycerides Lipase Arterial Blood Glucose 181 H Arterial Blood Ionized Calcium Urine WBC (Auto) Coronavirus (PCR) SARS-CoV-2 IgG Ab Crossmatch 07/12/20 07/12/20 07/12/20 11:33 17:45 23:59 WBC RBC Hgb Hct MCV MCH MCHC RDW Lymph % (Auto) [place] % (Auto) Lymph # (Auto) [place] # (Auto) Baso # (Auto) Seg Neutrophils % Seg Neuts % (Manual) Lymphocytes % (Manual) Nucleated RBC % Seg Neutrophils # Seg Neutrophils # Man Lymphocytes # (Manual) Monocytes # (Manual) Eosinophils # (Manual) PT INR APTT D-Dimer Heparin Anti-Xa Level ABG pH POC ABG pCO2 POC ABG pO2 ABG pO2 ABG HCO3 ABG O2 Saturation ABG Base Excess ABG Hemoglobin ABG Oxyhemoglobin ABG Sodium ABG Potassium ABG Chloride ABG Glucose Oxyhemoglobin Carboxyhemoglobin Sodium Potassium Chloride Carbon Dioxide BUN Creatinine Glucose POC Glucose 151 H 211 H 169 H Lactic Acid Calcium Phosphorus Magnesium Ferritin Total Bilirubin Direct Bilirubin AST ALT Alkaline Phosphatase Lactate Dehydrogenase C-Reactive Protein Total Protein Albumin Triglycerides Lipase Arterial Blood Glucose Arterial Blood Ionized Calcium Urine WBC (Auto) Coronavirus (PCR) SARS-CoV-2 IgG Ab Crossmatch 07/13/20 07/13/20 07/13/20 05:44 08:31 08:31 WBC 21.3 H RBC 2.92 L Hgb 9.7 L Hct 28.7 L MCV 98 H MCH 33 H MCHC RDW 16.8 H Lymph % (Auto) [place] % (Auto) Lymph # (Auto) [place] # (Auto) Baso # (Auto) Seg Neutrophils % Seg Neuts % (Manual) 96.0 H Lymphocytes % (Manual) 2.0 L Nucleated RBC % Seg Neutrophils # Seg Neutrophils # Man 20.4 H Lymphocytes # (Manual) 0.4 L Monocytes # (Manual) Eosinophils # (Manual) PT INR APTT D-Dimer Heparin Anti-Xa Level ABG pH POC ABG pCO2 POC ABG pO2 ABG pO2 ABG HCO3 ABG O2 Saturation ABG Base Excess ABG Hemoglobin ABG Oxyhemoglobin ABG Sodium ABG Potassium ABG Chloride ABG Glucose Oxyhemoglobin Carboxyhemoglobin Sodium Potassium 2.9 L* D Chloride 94.4 L Carbon Dioxide 37 H BUN Creatinine 0.2 L Glucose 166 H POC Glucose 122 H Lactic Acid Calcium Phosphorus Magnesium Ferritin Total Bilirubin Direct Bilirubin AST ALT Alkaline Phosphatase Lactate Dehydrogenase C-Reactive Protein Total Protein Albumin Triglycerides Lipase Arterial Blood Glucose Arterial Blood Ionized Calcium Urine WBC (Auto) Coronavirus (PCR) SARS-CoV-2 IgG Ab Crossmatch 07/13/20 07/13/20 07/13/20 11:54 13:52 17:40 WBC RBC Hgb Hct MCV MCH MCHC RDW Lymph % (Auto) [place] % (Auto) Lymph # (Auto) [place] # (Auto) Baso # (Auto) Seg Neutrophils % Seg Neuts % (Manual) Lymphocytes % (Manual) Nucleated RBC % Seg Neutrophils # Seg Neutrophils # Man Lymphocytes # (Manual) Monocytes # (Manual) Eosinophils # (Manual) PT INR APTT D-Dimer Heparin Anti-Xa Level ABG pH 7.477 H POC ABG pCO2 54.4 H POC ABG pO2 126.8 H ABG pO2 ABG HCO3 ABG O2 Saturation ABG Base Excess ABG Hemoglobin 11.5 L ABG Oxyhemoglobin ABG Sodium ABG Potassium 3.2 L ABG Chloride 92.0 L ABG Glucose 169 H Oxyhemoglobin Carboxyhemoglobin Sodium Potassium Chloride Carbon Dioxide BUN Creatinine Glucose POC Glucose 132 H 128 H Lactic Acid Calcium Phosphorus Magnesium Ferritin Total Bilirubin Direct Bilirubin AST ALT Alkaline Phosphatase Lactate Dehydrogenase C-Reactive Protein Total Protein Albumin Triglycerides Lipase Arterial Blood Glucose 169 H Arterial Blood Ionized Calcium Urine WBC (Auto) Coronavirus (PCR) SARS-CoV-2 IgG Ab Crossmatch 07/14/20 07/14/20 07/15/20 07:49 17:09 05:27 WBC RBC Hgb Hct MCV MCH MCHC RDW Lymph % (Auto) [place] % (Auto) Lymph # (Auto) [place] # (Auto) Baso # (Auto) Seg Neutrophils % Seg Neuts % (Manual) Lymphocytes % (Manual) Nucleated RBC % Seg Neutrophils # Seg Neutrophils # Man Lymphocytes # (Manual) Monocytes # (Manual) Eosinophils # (Manual) PT INR APTT D-Dimer Heparin Anti-Xa Level ABG pH POC ABG pCO2 POC ABG pO2 ABG pO2 ABG HCO3 ABG O2 Saturation ABG Base Excess ABG Hemoglobin ABG Oxyhemoglobin ABG Sodium ABG Potassium ABG Chloride ABG Glucose Oxyhemoglobin Carboxyhemoglobin Sodium Potassium 2.7 L* Chloride 94.0 L Carbon Dioxide 37 H BUN Creatinine 0.3 L Glucose 110 H POC Glucose 152 H 61 L Lactic Acid Calcium Phosphorus Magnesium Ferritin Total Bilirubin Direct Bilirubin AST ALT Alkaline Phosphatase Lactate Dehydrogenase C-Reactive Protein Total Protein Albumin Triglycerides Lipase Arterial Blood Glucose Arterial Blood Ionized Calcium Urine WBC (Auto) Coronavirus (PCR) SARS-CoV-2 IgG Ab Crossmatch 07/15/20 07/15/20 07/15/20 05:31 11:49 17:18 WBC RBC Hgb Hct MCV MCH MCHC RDW Lymph % (Auto) [place] % (Auto) Lymph # (Auto) [place] # (Auto) Baso # (Auto) Seg Neutrophils % Seg Neuts % (Manual) Lymphocytes % (Manual) Nucleated RBC % Seg Neutrophils # Seg Neutrophils # Man Lymphocytes # (Manual) Monocytes # (Manual) Eosinophils # (Manual) PT INR APTT D-Dimer Heparin Anti-Xa Level ABG pH POC ABG pCO2 POC ABG pO2 ABG pO2 ABG HCO3 ABG O2 Saturation ABG Base Excess ABG Hemoglobin ABG Oxyhemoglobin ABG Sodium ABG Potassium ABG Chloride ABG Glucose Oxyhemoglobin Carboxyhemoglobin Sodium Potassium 3.2 L Chloride 91.2 L Carbon Dioxide 33 H BUN Creatinine 0.3 L Glucose 139 H POC Glucose 148 H 196 H Lactic Acid Calcium Phosphorus Magnesium Ferritin Total Bilirubin Direct Bilirubin AST ALT Alkaline Phosphatase Lactate Dehydrogenase C-Reactive Protein Total Protein Albumin Triglycerides Lipase Arterial Blood Glucose Arterial Blood Ionized Calcium Urine WBC (Auto) Coronavirus (PCR) SARS-CoV-2 IgG Ab Crossmatch 07/15/20 07/16/20 07/16/20 23:08 05:18 05:19 WBC 11.3 H RBC 3.10 L Hgb 10.0 L Hct 30.3 L MCV 98 H MCH MCHC RDW 16.3 H Lymph % (Auto) [place] % (Auto) Lymph # (Auto) [place] # (Auto) Baso # (Auto) Seg Neutrophils % Seg Neuts % (Manual) Lymphocytes % (Manual) Nucleated RBC % Seg Neutrophils # Seg Neutrophils # Man Lymphocytes # (Manual) Monocytes # (Manual) Eosinophils # (Manual) PT INR APTT D-Dimer Heparin Anti-Xa Level ABG pH POC ABG pCO2 POC ABG pO2 ABG pO2 ABG HCO3 ABG O2 Saturation ABG Base Excess ABG Hemoglobin ABG Oxyhemoglobin ABG Sodium ABG Potassium ABG Chloride ABG Glucose Oxyhemoglobin Carboxyhemoglobin Sodium Potassium Chloride Carbon Dioxide BUN Creatinine Glucose POC Glucose 131 H 160 H Lactic Acid Calcium Phosphorus Magnesium Ferritin Total Bilirubin Direct Bilirubin AST ALT Alkaline Phosphatase Lactate Dehydrogenase C-Reactive Protein Total Protein Albumin Triglycerides Lipase Arterial Blood Glucose Arterial Blood Ionized Calcium Urine WBC (Auto) Coronavirus (PCR) SARS-CoV-2 IgG Ab Crossmatch 07/16/20 07/16/20 07/16/20 05:19 11:45 17:17 WBC RBC Hgb Hct MCV MCH MCHC RDW Lymph % (Auto) [place] % (Auto) Lymph # (Auto) [place] # (Auto) Baso # (Auto) Seg Neutrophils % Seg Neuts % (Manual) Lymphocytes % (Manual) Nucleated RBC % Seg Neutrophils # Seg Neutrophils # Man Lymphocytes # (Manual) Monocytes # (Manual) Eosinophils # (Manual) PT INR APTT D-Dimer Heparin Anti-Xa Level ABG pH POC ABG pCO2 POC ABG pO2 ABG pO2 ABG HCO3 ABG O2 Saturation ABG Base Excess ABG Hemoglobin ABG Oxyhemoglobin ABG Sodium ABG Potassium ABG Chloride ABG Glucose Oxyhemoglobin Carboxyhemoglobin Sodium 132 L Potassium 3.4 L Chloride 89.9 L Carbon Dioxide 39 H BUN Creatinine 0.3 L Glucose 174 H POC Glucose 169 H 143 H Lactic Acid Calcium Phosphorus Magnesium Ferritin Total Bilirubin Direct Bilirubin AST ALT Alkaline Phosphatase Lactate Dehydrogenase C-Reactive Protein Total Protein Albumin Triglycerides Lipase Arterial Blood Glucose Arterial Blood Ionized Calcium Urine WBC (Auto) Coronavirus (PCR) SARS-CoV-2 IgG Ab Crossmatch 07/16/20 07/17/20 07/17/20 23:54 05:32 11:26 WBC RBC Hgb Hct MCV MCH MCHC RDW Lymph % (Auto) [place] % (Auto) Lymph # (Auto) [place] # (Auto) Baso # (Auto) Seg Neutrophils % Seg Neuts % (Manual) Lymphocytes % (Manual) Nucleated RBC % Seg Neutrophils # Seg Neutrophils # Man Lymphocytes # (Manual) Monocytes # (Manual) Eosinophils # (Manual) PT INR APTT D-Dimer Heparin Anti-Xa Level ABG pH POC ABG pCO2 POC ABG pO2 ABG pO2 ABG HCO3 ABG O2 Saturation ABG Base Excess ABG Hemoglobin ABG Oxyhemoglobin ABG Sodium ABG Potassium ABG Chloride ABG Glucose Oxyhemoglobin Carboxyhemoglobin Sodium Potassium Chloride Carbon Dioxide BUN Creatinine Glucose POC Glucose 147 H 149 H 211 H Lactic Acid Calcium Phosphorus Magnesium Ferritin Total Bilirubin Direct Bilirubin AST ALT Alkaline Phosphatase Lactate Dehydrogenase C-Reactive Protein Total Protein Albumin Triglycerides Lipase Arterial Blood Glucose Arterial Blood Ionized Calcium Urine WBC (Auto) Coronavirus (PCR) SARS-CoV-2 IgG Ab Crossmatch 07/17/20 07/17/20 07/18/20 18:16 23:12 06:15 WBC RBC Hgb Hct MCV MCH MCHC RDW Lymph % (Auto) [place] % (Auto) Lymph # (Auto) [place] # (Auto) Baso # (Auto) Seg Neutrophils % Seg Neuts % (Manual) Lymphocytes % (Manual) Nucleated RBC % Seg Neutrophils # Seg Neutrophils # Man Lymphocytes # (Manual) Monocytes # (Manual) Eosinophils # (Manual) PT INR APTT D-Dimer Heparin Anti-Xa Level ABG pH POC ABG pCO2 POC ABG pO2 ABG pO2 ABG HCO3 ABG O2 Saturation ABG Base Excess ABG Hemoglobin ABG Oxyhemoglobin ABG Sodium ABG Potassium ABG Chloride ABG Glucose Oxyhemoglobin Carboxyhemoglobin Sodium Potassium Chloride Carbon Dioxide BUN Creatinine Glucose POC Glucose 161 H 136 H 108 H Lactic Acid Calcium Phosphorus Magnesium Ferritin Total Bilirubin Direct Bilirubin AST ALT Alkaline Phosphatase Lactate Dehydrogenase C-Reactive Protein Total Protein Albumin Triglycerides Lipase Arterial Blood Glucose Arterial Blood Ionized Calcium Urine WBC (Auto) Coronavirus (PCR) SARS-CoV-2 IgG Ab Crossmatch 07/18/20 07/18/20 07/18/20 08:47 08:47 11:50 WBC 17.7 H RBC 3.29 L Hgb 10.5 L Hct 31.8 L MCV 97 H MCH MCHC RDW 16.9 H Lymph % (Auto) [place] % (Auto) 8.6 H Lymph # (Auto) [place] # (Auto) 1.5 H Baso # (Auto) Seg Neutrophils % 74.6 H Seg Neuts % (Manual) Lymphocytes % (Manual) Nucleated RBC % Seg Neutrophils # 13.2 H Seg Neutrophils # Man Lymphocytes # (Manual) Monocytes # (Manual) Eosinophils # (Manual) PT INR APTT D-Dimer Heparin Anti-Xa Level ABG pH POC ABG pCO2 POC ABG pO2 ABG pO2 ABG HCO3 ABG O2 Saturation ABG Base Excess ABG Hemoglobin ABG Oxyhemoglobin ABG Sodium ABG Potassium ABG Chloride ABG Glucose Oxyhemoglobin Carboxyhemoglobin Sodium Potassium 2.8 L* Chloride 92.6 L Carbon Dioxide 40 H BUN Creatinine 0.3 L Glucose 177 H POC Glucose 178 H Lactic Acid Calcium Phosphorus Magnesium Ferritin Total Bilirubin Direct Bilirubin AST ALT Alkaline Phosphatase Lactate Dehydrogenase C-Reactive Protein Total Protein Albumin Triglycerides Lipase Arterial Blood Glucose Arterial Blood Ionized Calcium Urine WBC (Auto) Coronavirus (PCR) SARS-CoV-2 IgG Ab Crossmatch 07/18/20 07/18/20 07/19/20 17:18 23:33 05:22 WBC RBC Hgb Hct MCV MCH MCHC RDW Lymph % (Auto) [place] % (Auto) Lymph # (Auto) [place] # (Auto) Baso # (Auto) Seg Neutrophils % Seg Neuts % (Manual) Lymphocytes % (Manual) Nucleated RBC % Seg Neutrophils # Seg Neutrophils # Man Lymphocytes # (Manual) Monocytes # (Manual) Eosinophils # (Manual) PT INR APTT D-Dimer Heparin Anti-Xa Level ABG pH POC ABG pCO2 POC ABG pO2 ABG pO2 ABG HCO3 ABG O2 Saturation ABG Base Excess ABG Hemoglobin ABG Oxyhemoglobin ABG Sodium ABG Potassium ABG Chloride ABG Glucose Oxyhemoglobin Carboxyhemoglobin Sodium Potassium Chloride Carbon Dioxide BUN Creatinine Glucose POC Glucose 171 H 162 H 166 H Lactic Acid Calcium Phosphorus Magnesium Ferritin Total Bilirubin Direct Bilirubin AST ALT Alkaline Phosphatase Lactate Dehydrogenase C-Reactive Protein Total Protein Albumin Triglycerides Lipase Arterial Blood Glucose Arterial Blood Ionized Calcium Urine WBC (Auto) Coronavirus (PCR) SARS-CoV-2 IgG Ab Crossmatch 07/19/20 07/19/20 07/19/20 12:00 16:27 23:41 WBC RBC Hgb Hct MCV MCH MCHC RDW Lymph % (Auto) [place] % (Auto) Lymph # (Auto) [place] # (Auto) Baso # (Auto) Seg Neutrophils % Seg Neuts % (Manual) Lymphocytes % (Manual) Nucleated RBC % Seg Neutrophils # Seg Neutrophils # Man Lymphocytes # (Manual) Monocytes # (Manual) Eosinophils # (Manual) PT INR APTT D-Dimer Heparin Anti-Xa Level ABG pH POC ABG pCO2 POC ABG pO2 ABG pO2 ABG HCO3 ABG O2 Saturation ABG Base Excess ABG Hemoglobin ABG Oxyhemoglobin ABG Sodium ABG Potassium ABG Chloride ABG Glucose Oxyhemoglobin Carboxyhemoglobin Sodium Potassium Chloride Carbon Dioxide BUN Creatinine Glucose POC Glucose 201 H 205 H 106 H Lactic Acid Calcium Phosphorus Magnesium Ferritin Total Bilirubin Direct Bilirubin AST ALT Alkaline Phosphatase Lactate Dehydrogenase C-Reactive Protein Total Protein Albumin Triglycerides Lipase Arterial Blood Glucose Arterial Blood Ionized Calcium Urine WBC (Auto) Coronavirus (PCR) SARS-CoV-2 IgG Ab Crossmatch 07/20/20 07/20/20 07/20/20 05:28 11:18 17:30 WBC RBC Hgb Hct MCV MCH MCHC RDW Lymph % (Auto) [place] % (Auto) Lymph # (Auto) [place] # (Auto) Baso # (Auto) Seg Neutrophils % Seg Neuts % (Manual) Lymphocytes % (Manual) Nucleated RBC % Seg Neutrophils # Seg Neutrophils # Man Lymphocytes # (Manual) Monocytes # (Manual) Eosinophils # (Manual) PT INR APTT D-Dimer Heparin Anti-Xa Level ABG pH POC ABG pCO2 POC ABG pO2 ABG pO2 ABG HCO3 ABG O2 Saturation ABG Base Excess ABG Hemoglobin ABG Oxyhemoglobin ABG Sodium ABG Potassium ABG Chloride ABG Glucose Oxyhemoglobin Carboxyhemoglobin Sodium Potassium Chloride Carbon Dioxide BUN Creatinine Glucose POC Glucose 130 H 195 H 141 H Lactic Acid Calcium Phosphorus Magnesium Ferritin Total Bilirubin Direct Bilirubin AST ALT Alkaline Phosphatase Lactate Dehydrogenase C-Reactive Protein Total Protein Albumin Triglycerides Lipase Arterial Blood Glucose Arterial Blood Ionized Calcium Urine WBC (Auto) Coronavirus (PCR) SARS-CoV-2 IgG Ab Crossmatch 07/20/20 07/21/20 07/21/20 23:26 05:03 17:03 WBC RBC Hgb Hct MCV MCH MCHC RDW Lymph % (Auto) [place] % (Auto) Lymph # (Auto) [place] # (Auto) Baso # (Auto) Seg Neutrophils % Seg Neuts % (Manual) Lymphocytes % (Manual) Nucleated RBC % Seg Neutrophils # Seg Neutrophils # Man Lymphocytes # (Manual) Monocytes # (Manual) Eosinophils # (Manual) PT INR APTT D-Dimer Heparin Anti-Xa Level ABG pH POC ABG pCO2 POC ABG pO2 ABG pO2 ABG HCO3 ABG O2 Saturation ABG Base Excess ABG Hemoglobin ABG Oxyhemoglobin ABG Sodium ABG Potassium ABG Chloride ABG Glucose Oxyhemoglobin Carboxyhemoglobin Sodium Potassium Chloride Carbon Dioxide BUN Creatinine Glucose POC Glucose 116 H 142 H 181 H Lactic Acid Calcium Phosphorus Magnesium Ferritin Total Bilirubin Direct Bilirubin AST ALT Alkaline Phosphatase Lactate Dehydrogenase C-Reactive Protein Total Protein Albumin Triglycerides Lipase Arterial Blood Glucose Arterial Blood Ionized Calcium Urine WBC (Auto) Coronavirus (PCR) SARS-CoV-2 IgG Ab Crossmatch 07/21/20 07/22/20 07/22/20 23:51 06:09 11:40 WBC RBC Hgb Hct MCV MCH MCHC RDW Lymph % (Auto) [place] % (Auto) Lymph # (Auto) [place] # (Auto) Baso # (Auto) Seg Neutrophils % Seg Neuts % (Manual) Lymphocytes % (Manual) Nucleated RBC % Seg Neutrophils # Seg Neutrophils # Man Lymphocytes # (Manual) Monocytes # (Manual) Eosinophils # (Manual) PT INR APTT D-Dimer Heparin Anti-Xa Level ABG pH POC ABG pCO2 POC ABG pO2 ABG pO2 ABG HCO3 ABG O2 Saturation ABG Base Excess ABG Hemoglobin ABG Oxyhemoglobin ABG Sodium ABG Potassium ABG Chloride ABG Glucose Oxyhemoglobin Carboxyhemoglobin Sodium Potassium Chloride Carbon Dioxide BUN Creatinine Glucose POC Glucose 127 H 136 H 160 H Lactic Acid Calcium Phosphorus Magnesium Ferritin Total Bilirubin Direct Bilirubin AST ALT Alkaline Phosphatase Lactate Dehydrogenase C-Reactive Protein Total Protein Albumin Triglycerides Lipase Arterial Blood Glucose Arterial Blood Ionized Calcium Urine WBC (Auto) Coronavirus (PCR) SARS-CoV-2 IgG Ab Crossmatch 07/22/20 07/22/20 07/23/20 18:14 23:25 05:58 WBC 12.2 H RBC 3.44 L Hgb 10.9 L Hct 33.9 L MCV 99 H MCH MCHC RDW 16.9 H Lymph % (Auto) [place] % (Auto) 10.0 H Lymph # (Auto) [place] # (Auto) 1.2 H Baso # (Auto) Seg Neutrophils % Seg Neuts % (Manual) Lymphocytes % (Manual) Nucleated RBC % Seg Neutrophils # 8.3 H Seg Neutrophils # Man Lymphocytes # (Manual) Monocytes # (Manual) Eosinophils # (Manual) PT INR APTT D-Dimer Heparin Anti-Xa Level ABG pH POC ABG pCO2 POC ABG pO2 ABG pO2 ABG HCO3 ABG O2 Saturation ABG Base Excess ABG Hemoglobin ABG Oxyhemoglobin ABG Sodium ABG Potassium ABG Chloride ABG Glucose Oxyhemoglobin Carboxyhemoglobin Sodium Potassium Chloride Carbon Dioxide BUN Creatinine Glucose POC Glucose 189 H 164 H Lactic Acid Calcium Phosphorus Magnesium Ferritin Total Bilirubin Direct Bilirubin AST ALT Alkaline Phosphatase Lactate Dehydrogenase C-Reactive Protein Total Protein Albumin Triglycerides Lipase Arterial Blood Glucose Arterial Blood Ionized Calcium Urine WBC (Auto) Coronavirus (PCR) SARS-CoV-2 IgG Ab Crossmatch 07/23/20 07/23/20 07/23/20 05:58 06:02 12:14 WBC RBC Hgb Hct MCV MCH MCHC RDW Lymph % (Auto) [place] % (Auto) Lymph # (Auto) [place] # (Auto) Baso # (Auto) Seg Neutrophils % Seg Neuts % (Manual) Lymphocytes % (Manual) Nucleated RBC % Seg Neutrophils # Seg Neutrophils # Man Lymphocytes # (Manual) Monocytes # (Manual) Eosinophils # (Manual) PT INR APTT D-Dimer Heparin Anti-Xa Level ABG pH POC ABG pCO2 POC ABG pO2 ABG pO2 ABG HCO3 ABG O2 Saturation ABG Base Excess ABG Hemoglobin ABG Oxyhemoglobin ABG Sodium ABG Potassium ABG Chloride ABG Glucose Oxyhemoglobin Carboxyhemoglobin Sodium Potassium 2.9 L* Chloride 94.9 L Carbon Dioxide 33 H D BUN Creatinine 0.4 L Glucose 129 H POC Glucose 111 H 142 H Lactic Acid Calcium Phosphorus Magnesium Ferritin Total Bilirubin Direct Bilirubin AST ALT Alkaline Phosphatase Lactate Dehydrogenase C-Reactive Protein Total Protein Albumin 3.5 L Triglycerides Lipase Arterial Blood Glucose Arterial Blood Ionized Calcium Urine WBC (Auto) Coronavirus (PCR) SARS-CoV-2 IgG Ab Crossmatch 07/23/20 07/23/20 07/24/20 17:20 23:39 05:05 WBC 13.3 H RBC 3.40 L Hgb 10.8 L Hct 33.4 L MCV 98 H MCH MCHC RDW 16.7 H Lymph % (Auto) [place] % (Auto) 10.0 H Lymph # (Auto) [place] # (Auto) 1.3 H Baso # (Auto) Seg Neutrophils % Seg Neuts % (Manual) Lymphocytes % (Manual) Nucleated RBC % Seg Neutrophils # 9.0 H Seg Neutrophils # Man Lymphocytes # (Manual) Monocytes # (Manual) Eosinophils # (Manual) PT INR APTT D-Dimer Heparin Anti-Xa Level ABG pH POC ABG pCO2 POC ABG pO2 ABG pO2 ABG HCO3 ABG O2 Saturation ABG Base Excess ABG Hemoglobin ABG Oxyhemoglobin ABG Sodium ABG Potassium ABG Chloride ABG Glucose Oxyhemoglobin Carboxyhemoglobin Sodium Potassium Chloride Carbon Dioxide BUN Creatinine Glucose POC Glucose 150 H 120 H Lactic Acid Calcium Phosphorus Magnesium Ferritin Total Bilirubin Direct Bilirubin AST ALT Alkaline Phosphatase Lactate Dehydrogenase C-Reactive Protein Total Protein Albumin Triglycerides Lipase Arterial Blood Glucose Arterial Blood Ionized Calcium Urine WBC (Auto) Coronavirus (PCR) SARS-CoV-2 IgG Ab Crossmatch 07/24/20 07/24/20 07/24/20 05:05 05:39 11:30 WBC RBC Hgb Hct MCV MCH MCHC RDW Lymph % (Auto) [place] % (Auto) Lymph # (Auto) [place] # (Auto) Baso # (Auto) Seg Neutrophils % Seg Neuts % (Manual) Lymphocytes % (Manual) Nucleated RBC % Seg Neutrophils # Seg Neutrophils # Man Lymphocytes # (Manual) Monocytes # (Manual) Eosinophils # (Manual) PT INR APTT D-Dimer Heparin Anti-Xa Level ABG pH POC ABG pCO2 POC ABG pO2 ABG pO2 ABG HCO3 ABG O2 Saturation ABG Base Excess ABG Hemoglobin ABG Oxyhemoglobin ABG Sodium ABG Potassium ABG Chloride ABG Glucose Oxyhemoglobin Carboxyhemoglobin Sodium Potassium Chloride 97.4 L Carbon Dioxide BUN Creatinine 0.3 L Glucose 111 H POC Glucose 118 H 160 H Lactic Acid Calcium Phosphorus Magnesium Ferritin Total Bilirubin Direct Bilirubin AST ALT Alkaline Phosphatase Lactate Dehydrogenase C-Reactive Protein Total Protein Albumin Triglycerides Lipase Arterial Blood Glucose Arterial Blood Ionized Calcium Urine WBC (Auto) Coronavirus (PCR) SARS-CoV-2 IgG Ab Crossmatch 07/24/20 07/24/20 07/25/20 16:45 23:43 05:00 WBC RBC Hgb Hct MCV MCH MCHC RDW Lymph % (Auto) [place] % (Auto) Lymph # (Auto) [place] # (Auto) Baso # (Auto) Seg Neutrophils % Seg Neuts % (Manual) Lymphocytes % (Manual) Nucleated RBC % Seg Neutrophils # Seg Neutrophils # Man Lymphocytes # (Manual) Monocytes # (Manual) Eosinophils # (Manual) PT INR APTT D-Dimer Heparin Anti-Xa Level ABG pH POC ABG pCO2 POC ABG pO2 ABG pO2 ABG HCO3 ABG O2 Saturation ABG Base Excess ABG Hemoglobin ABG Oxyhemoglobin ABG Sodium ABG Potassium ABG Chloride ABG Glucose Oxyhemoglobin Carboxyhemoglobin Sodium Potassium Chloride Carbon Dioxide BUN Creatinine Glucose POC Glucose 181 H 122 H 114 H Lactic Acid Calcium Phosphorus Magnesium Ferritin Total Bilirubin Direct Bilirubin AST ALT Alkaline Phosphatase Lactate Dehydrogenase C-Reactive Protein Total Protein Albumin Triglycerides Lipase Arterial Blood Glucose Arterial Blood Ionized Calcium Urine WBC (Auto) Coronavirus (PCR) SARS-CoV-2 IgG Ab Crossmatch 07/25/20 07/25/20 07/25/20 11:44 16:44 23:41 WBC RBC Hgb Hct MCV MCH MCHC RDW Lymph % (Auto) [place] % (Auto) Lymph # (Auto) [place] # (Auto) Baso # (Auto) Seg Neutrophils % Seg Neuts % (Manual) Lymphocytes % (Manual) Nucleated RBC % Seg Neutrophils # Seg Neutrophils # Man Lymphocytes # (Manual) Monocytes # (Manual) Eosinophils # (Manual) PT INR APTT D-Dimer Heparin Anti-Xa Level ABG pH POC ABG pCO2 POC ABG pO2 ABG pO2 ABG HCO3 ABG O2 Saturation ABG Base Excess ABG Hemoglobin ABG Oxyhemoglobin ABG Sodium ABG Potassium ABG Chloride ABG Glucose Oxyhemoglobin Carboxyhemoglobin Sodium Potassium Chloride Carbon Dioxide BUN Creatinine Glucose POC Glucose 298 H 166 H 133 H Lactic Acid Calcium Phosphorus Magnesium Ferritin Total Bilirubin Direct Bilirubin AST ALT Alkaline Phosphatase Lactate Dehydrogenase C-Reactive Protein Total Protein Albumin Triglycerides Lipase Arterial Blood Glucose Arterial Blood Ionized Calcium Urine WBC (Auto) Coronavirus (PCR) SARS-CoV-2 IgG Ab Crossmatch 07/26/20 07/26/20 07/26/20 05:17 11:17 18:07 WBC RBC Hgb Hct MCV MCH MCHC RDW Lymph % (Auto) [place] % (Auto) Lymph # (Auto) [place] # (Auto) Baso # (Auto) Seg Neutrophils % Seg Neuts % (Manual) Lymphocytes % (Manual) Nucleated RBC % Seg Neutrophils # Seg Neutrophils # Man Lymphocytes # (Manual) Monocytes # (Manual) Eosinophils # (Manual) PT INR APTT D-Dimer Heparin Anti-Xa Level ABG pH POC ABG pCO2 POC ABG pO2 ABG pO2 ABG HCO3 ABG O2 Saturation ABG Base Excess ABG Hemoglobin ABG Oxyhemoglobin ABG Sodium ABG Potassium ABG Chloride ABG Glucose Oxyhemoglobin Carboxyhemoglobin Sodium Potassium Chloride Carbon Dioxide BUN Creatinine Glucose POC Glucose 113 H 157 H 154 H Lactic Acid Calcium Phosphorus Magnesium Ferritin Total Bilirubin Direct Bilirubin AST ALT Alkaline Phosphatase Lactate Dehydrogenase C-Reactive Protein Total Protein Albumin Triglycerides Lipase Arterial Blood Glucose Arterial Blood Ionized Calcium Urine WBC (Auto) Coronavirus (PCR) SARS-CoV-2 IgG Ab Crossmatch 07/26/20 07/27/20 07/27/20 23:44 08:26 08:26 WBC RBC 3.63 L Hgb Hct MCV 98 H MCH MCHC RDW 17.5 H Lymph % (Auto) [place] % (Auto) 10.6 H Lymph # (Auto) [place] # (Auto) 1.1 H Baso # (Auto) Seg Neutrophils % Seg Neuts % (Manual) Lymphocytes % (Manual) Nucleated RBC % Seg Neutrophils # Seg Neutrophils # Man Lymphocytes # (Manual) Monocytes # (Manual) Eosinophils # (Manual) PT INR APTT D-Dimer Heparin Anti-Xa Level ABG pH POC ABG pCO2 POC ABG pO2 ABG pO2 ABG HCO3 ABG O2 Saturation ABG Base Excess ABG Hemoglobin ABG Oxyhemoglobin ABG Sodium ABG Potassium ABG Chloride ABG Glucose Oxyhemoglobin Carboxyhemoglobin Sodium Potassium Chloride 97.9 L Carbon Dioxide 37 H D BUN Creatinine 0.4 L Glucose 115 H POC Glucose 148 H Lactic Acid Calcium Phosphorus Magnesium Ferritin Total Bilirubin Direct Bilirubin AST ALT Alkaline Phosphatase Lactate Dehydrogenase C-Reactive Protein Total Protein Albumin Triglycerides Lipase Arterial Blood Glucose Arterial Blood Ionized Calcium Urine WBC (Auto) Coronavirus (PCR) SARS-CoV-2 IgG Ab Crossmatch 07/27/20 07/27/20 07/27/20 11:41 16:50 23:22 WBC RBC Hgb Hct MCV MCH MCHC RDW Lymph % (Auto) [place] % (Auto) Lymph # (Auto) [place] # (Auto) Baso # (Auto) Seg Neutrophils % Seg Neuts % (Manual) Lymphocytes % (Manual) Nucleated RBC % Seg Neutrophils # Seg Neutrophils # Man Lymphocytes # (Manual) Monocytes # (Manual) Eosinophils # (Manual) PT INR APTT D-Dimer Heparin Anti-Xa Level ABG pH POC ABG pCO2 POC ABG pO2 ABG pO2 ABG HCO3 ABG O2 Saturation ABG Base Excess ABG Hemoglobin ABG Oxyhemoglobin ABG Sodium ABG Potassium ABG Chloride ABG Glucose Oxyhemoglobin Carboxyhemoglobin Sodium Potassium Chloride Carbon Dioxide BUN Creatinine Glucose POC Glucose 169 H 132 H 120 H Lactic Acid Calcium Phosphorus Magnesium Ferritin Total Bilirubin Direct Bilirubin AST ALT Alkaline Phosphatase Lactate Dehydrogenase C-Reactive Protein Total Protein Albumin Triglycerides Lipase Arterial Blood Glucose Arterial Blood Ionized Calcium Urine WBC (Auto) Coronavirus (PCR) SARS-CoV-2 IgG Ab Crossmatch 07/28/20 07/29/20 07/29/20 17:39 14:14 16:32 WBC RBC Hgb Hct MCV MCH MCHC RDW Lymph % (Auto) [place] % (Auto) Lymph # (Auto) [place] # (Auto) Baso # (Auto) Seg Neutrophils % Seg Neuts % (Manual) Lymphocytes % (Manual) Nucleated RBC % Seg Neutrophils # Seg Neutrophils # Man Lymphocytes # (Manual) Monocytes # (Manual) Eosinophils # (Manual) PT INR APTT D-Dimer Heparin Anti-Xa Level ABG pH POC ABG pCO2 POC ABG pO2 ABG pO2 ABG HCO3 ABG O2 Saturation ABG Base Excess ABG Hemoglobin ABG Oxyhemoglobin ABG Sodium ABG Potassium ABG Chloride ABG Glucose Oxyhemoglobin Carboxyhemoglobin Sodium Potassium Chloride Carbon Dioxide BUN Creatinine Glucose POC Glucose 187 H 188 H 193 H Lactic Acid Calcium Phosphorus Magnesium Ferritin Total Bilirubin Direct Bilirubin AST ALT Alkaline Phosphatase Lactate Dehydrogenase C-Reactive Protein Total Protein Albumin Triglycerides Lipase Arterial Blood Glucose Arterial Blood Ionized Calcium Urine WBC (Auto) Coronavirus (PCR) SARS-CoV-2 IgG Ab Crossmatch 07/30/20 07/30/20 07/30/20 12:03 15:59 23:20 WBC RBC Hgb Hct MCV MCH MCHC RDW Lymph % (Auto) [place] % (Auto) Lymph # (Auto) [place] # (Auto) Baso # (Auto) Seg Neutrophils % Seg Neuts % (Manual) Lymphocytes % (Manual) Nucleated RBC % Seg Neutrophils # Seg Neutrophils # Man Lymphocytes # (Manual) Monocytes # (Manual) Eosinophils # (Manual) PT INR APTT D-Dimer Heparin Anti-Xa Level ABG pH POC ABG pCO2 POC ABG pO2 ABG pO2 ABG HCO3 ABG O2 Saturation ABG Base Excess ABG Hemoglobin ABG Oxyhemoglobin ABG Sodium ABG Potassium ABG Chloride ABG Glucose Oxyhemoglobin Carboxyhemoglobin Sodium Potassium Chloride Carbon Dioxide BUN Creatinine Glucose POC Glucose 133 H 191 H 144 H Lactic Acid Calcium Phosphorus Magnesium Ferritin Total Bilirubin Direct Bilirubin AST ALT Alkaline Phosphatase Lactate Dehydrogenase C-Reactive Protein Total Protein Albumin Triglycerides Lipase Arterial Blood Glucose Arterial Blood Ionized Calcium Urine WBC (Auto) Coronavirus (PCR) SARS-CoV-2 IgG Ab Crossmatch 07/31/20 07/31/20 07/31/20 05:28 12:01 16:43 WBC RBC Hgb Hct MCV MCH MCHC RDW Lymph % (Auto) [place] % (Auto) Lymph # (Auto) [place] # (Auto) Baso # (Auto) Seg Neutrophils % Seg Neuts % (Manual) Lymphocytes % (Manual) Nucleated RBC % Seg Neutrophils # Seg Neutrophils # Man Lymphocytes # (Manual) Monocytes # (Manual) Eosinophils # (Manual) PT INR APTT D-Dimer Heparin Anti-Xa Level ABG pH POC ABG pCO2 POC ABG pO2 ABG pO2 ABG HCO3 ABG O2 Saturation ABG Base Excess ABG Hemoglobin ABG Oxyhemoglobin ABG Sodium ABG Potassium ABG Chloride ABG Glucose Oxyhemoglobin Carboxyhemoglobin Sodium Potassium Chloride Carbon Dioxide BUN Creatinine Glucose POC Glucose 128 H 137 H 170 H Lactic Acid Calcium Phosphorus Magnesium Ferritin Total Bilirubin Direct Bilirubin AST ALT Alkaline Phosphatase Lactate Dehydrogenase C-Reactive Protein Total Protein Albumin Triglycerides Lipase Arterial Blood Glucose Arterial Blood Ionized Calcium Urine WBC (Auto) Coronavirus (PCR) SARS-CoV-2 IgG Ab Crossmatch 07/31/20 08/01/20 08/01/20 20:28 07:44 11:02 WBC RBC Hgb Hct MCV MCH MCHC RDW Lymph % (Auto) [place] % (Auto) Lymph # (Auto) [place] # (Auto) Baso # (Auto) Seg Neutrophils % Seg Neuts % (Manual) Lymphocytes % (Manual) Nucleated RBC % Seg Neutrophils # Seg Neutrophils # Man Lymphocytes # (Manual) Monocytes # (Manual) Eosinophils # (Manual) PT INR APTT D-Dimer Heparin Anti-Xa Level ABG pH POC ABG pCO2 POC ABG pO2 ABG pO2 ABG HCO3 ABG O2 Saturation ABG Base Excess ABG Hemoglobin ABG Oxyhemoglobin ABG Sodium ABG Potassium ABG Chloride ABG Glucose Oxyhemoglobin Carboxyhemoglobin Sodium Potassium Chloride Carbon Dioxide BUN Creatinine Glucose POC Glucose 142 H 111 H 137 H Lactic Acid Calcium Phosphorus Magnesium Ferritin Total Bilirubin Direct Bilirubin AST ALT Alkaline Phosphatase Lactate Dehydrogenase C-Reactive Protein Total Protein Albumin Triglycerides Lipase Arterial Blood Glucose Arterial Blood Ionized Calcium Urine WBC (Auto) Coronavirus (PCR) SARS-CoV-2 IgG Ab Crossmatch 08/01/20 08/01/20 08/02/20 15:46 20:46 05:55 WBC 12.4 H RBC Hgb Hct MCV 99 H MCH MCHC RDW 16.9 H Lymph % (Auto) [place] % (Auto) 9.7 H Lymph # (Auto) [place] # (Auto) 1.2 H Baso # (Auto) Seg Neutrophils % Seg Neuts % (Manual) Lymphocytes % (Manual) Nucleated RBC % Seg Neutrophils # 8.5 H Seg Neutrophils # Man Lymphocytes # (Manual) Monocytes # (Manual) Eosinophils # (Manual) PT INR APTT D-Dimer Heparin Anti-Xa Level ABG pH POC ABG pCO2 POC ABG pO2 ABG pO2 ABG HCO3 ABG O2 Saturation ABG Base Excess ABG Hemoglobin ABG Oxyhemoglobin ABG Sodium ABG Potassium ABG Chloride ABG Glucose Oxyhemoglobin Carboxyhemoglobin Sodium Potassium Chloride Carbon Dioxide BUN Creatinine Glucose POC Glucose 131 H 123 H Lactic Acid Calcium Phosphorus Magnesium Ferritin Total Bilirubin Direct Bilirubin AST ALT Alkaline Phosphatase Lactate Dehydrogenase C-Reactive Protein Total Protein Albumin Triglycerides Lipase Arterial Blood Glucose Arterial Blood Ionized Calcium Urine WBC (Auto) Coronavirus (PCR) SARS-CoV-2 IgG Ab Crossmatch 08/02/20 08/02/20 08/02/20 05:55 08:19 12:24 WBC RBC Hgb Hct MCV MCH MCHC RDW Lymph % (Auto) [place] % (Auto) Lymph # (Auto) [place] # (Auto) Baso # (Auto) Seg Neutrophils % Seg Neuts % (Manual) Lymphocytes % (Manual) Nucleated RBC % Seg Neutrophils # Seg Neutrophils # Man Lymphocytes # (Manual) Monocytes # (Manual) Eosinophils # (Manual) PT INR APTT D-Dimer Heparin Anti-Xa Level ABG pH POC ABG pCO2 POC ABG pO2 ABG pO2 ABG HCO3 ABG O2 Saturation ABG Base Excess ABG Hemoglobin ABG Oxyhemoglobin ABG Sodium ABG Potassium ABG Chloride ABG Glucose Oxyhemoglobin Carboxyhemoglobin Sodium Potassium 2.9 L* Chloride 96.5 L Carbon Dioxide 39 H BUN Creatinine 0.3 L Glucose 105 H POC Glucose 152 H 144 H Lactic Acid Calcium Phosphorus Magnesium Ferritin Total Bilirubin Direct Bilirubin AST ALT 118 H Alkaline Phosphatase Lactate Dehydrogenase C-Reactive Protein Total Protein Albumin 3.3 L Triglycerides Lipase Arterial Blood Glucose Arterial Blood Ionized Calcium Urine WBC (Auto) Coronavirus (PCR) SARS-CoV-2 IgG Ab Crossmatch 08/02/20 08/02/20 08/02/20 13:55 16:23 17:00 WBC RBC Hgb Hct MCV MCH MCHC RDW Lymph % (Auto) [place] % (Auto) Lymph # (Auto) [place] # (Auto) Baso # (Auto) Seg Neutrophils % Seg Neuts % (Manual) Lymphocytes % (Manual) Nucleated RBC % Seg Neutrophils # Seg Neutrophils # Man Lymphocytes # (Manual) Monocytes # (Manual) Eosinophils # (Manual) PT INR APTT D-Dimer Heparin Anti-Xa Level ABG pH POC ABG pCO2 POC ABG pO2 ABG pO2 ABG HCO3 ABG O2 Saturation ABG Base Excess ABG Hemoglobin ABG Oxyhemoglobin ABG Sodium ABG Potassium ABG Chloride ABG Glucose Oxyhemoglobin Carboxyhemoglobin Sodium Potassium 3.0 L Chloride Carbon Dioxide BUN Creatinine Glucose POC Glucose 142 H 193 H Lactic Acid Calcium Phosphorus Magnesium Ferritin Total Bilirubin Direct Bilirubin AST ALT Alkaline Phosphatase Lactate Dehydrogenase C-Reactive Protein Total Protein Albumin Triglycerides Lipase Arterial Blood Glucose Arterial Blood Ionized Calcium Urine WBC (Auto) Coronavirus (PCR) SARS-CoV-2 IgG Ab Crossmatch 08/02/20 08/03/20 08/03/20 21:21 05:18 08:05 WBC RBC Hgb Hct MCV MCH MCHC RDW Lymph % (Auto) [place] % (Auto) Lymph # (Auto) [place] # (Auto) Baso # (Auto) Seg Neutrophils % Seg Neuts % (Manual) Lymphocytes % (Manual) Nucleated RBC % Seg Neutrophils # Seg Neutrophils # Man Lymphocytes # (Manual) Monocytes # (Manual) Eosinophils # (Manual) PT INR APTT D-Dimer Heparin Anti-Xa Level ABG pH POC ABG pCO2 POC ABG pO2 ABG pO2 ABG HCO3 ABG O2 Saturation ABG Base Excess ABG Hemoglobin ABG Oxyhemoglobin ABG Sodium ABG Potassium ABG Chloride ABG Glucose Oxyhemoglobin Carboxyhemoglobin Sodium Potassium Chloride Carbon Dioxide 32 H D BUN Creatinine 0.4 L Glucose POC Glucose 161 H 107 H Lactic Acid Calcium Phosphorus Magnesium Ferritin Total Bilirubin Direct Bilirubin AST ALT Alkaline Phosphatase Lactate Dehydrogenase C-Reactive Protein Total Protein Albumin Triglycerides Lipase Arterial Blood Glucose Arterial Blood Ionized Calcium Urine WBC (Auto) Coronavirus (PCR) SARS-CoV-2 IgG Ab Crossmatch 08/03/20 08/03/20 08/04/20 12:03 20:20 07:46 WBC RBC Hgb Hct MCV MCH MCHC RDW Lymph % (Auto) [place] % (Auto) Lymph # (Auto) [place] # (Auto) Baso # (Auto) Seg Neutrophils % Seg Neuts % (Manual) Lymphocytes % (Manual) Nucleated RBC % Seg Neutrophils # Seg Neutrophils # Man Lymphocytes # (Manual) Monocytes # (Manual) Eosinophils # (Manual) PT INR APTT D-Dimer Heparin Anti-Xa Level ABG pH POC ABG pCO2 POC ABG pO2 ABG pO2 ABG HCO3 ABG O2 Saturation ABG Base Excess ABG Hemoglobin ABG Oxyhemoglobin ABG Sodium ABG Potassium ABG Chloride ABG Glucose Oxyhemoglobin Carboxyhemoglobin Sodium Potassium Chloride Carbon Dioxide BUN Creatinine Glucose POC Glucose 135 H 167 H 109 H Lactic Acid Calcium Phosphorus Magnesium Ferritin Total Bilirubin Direct Bilirubin AST ALT Alkaline Phosphatase Lactate Dehydrogenase C-Reactive Protein Total Protein Albumin Triglycerides Lipase Arterial Blood Glucose Arterial Blood Ionized Calcium Urine WBC (Auto) Coronavirus (PCR) SARS-CoV-2 IgG Ab Crossmatch 08/04/20 08/04/20 08/04/20 11:54 16:48 20:39 WBC RBC Hgb Hct MCV MCH MCHC RDW Lymph % (Auto) [place] % (Auto) Lymph # (Auto) [place] # (Auto) Baso # (Auto) Seg Neutrophils % Seg Neuts % (Manual) Lymphocytes % (Manual) Nucleated RBC % Seg Neutrophils # Seg Neutrophils # Man Lymphocytes # (Manual) Monocytes # (Manual) Eosinophils # (Manual) PT INR APTT D-Dimer Heparin Anti-Xa Level ABG pH POC ABG pCO2 POC ABG pO2 ABG pO2 ABG HCO3 ABG O2 Saturation ABG Base Excess ABG Hemoglobin ABG Oxyhemoglobin ABG Sodium ABG Potassium ABG Chloride ABG Glucose Oxyhemoglobin Carboxyhemoglobin Sodium Potassium Chloride Carbon Dioxide BUN Creatinine Glucose POC Glucose 133 H 150 H 139 H Lactic Acid Calcium Phosphorus Magnesium Ferritin Total Bilirubin Direct Bilirubin AST ALT Alkaline Phosphatase Lactate Dehydrogenase C-Reactive Protein Total Protein Albumin Triglycerides Lipase Arterial Blood Glucose Arterial Blood Ionized Calcium Urine WBC (Auto) Coronavirus (PCR) SARS-CoV-2 IgG Ab Crossmatch 08/05/20 08/05/20 08/05/20 07:45 11:36 16:09 WBC RBC Hgb Hct MCV MCH MCHC RDW Lymph % (Auto) [place] % (Auto) Lymph # (Auto) [place] # (Auto) Baso # (Auto) Seg Neutrophils % Seg Neuts % (Manual) Lymphocytes % (Manual) Nucleated RBC % Seg Neutrophils # Seg Neutrophils # Man Lymphocytes # (Manual) Monocytes # (Manual) Eosinophils # (Manual) PT INR APTT D-Dimer Heparin Anti-Xa Level ABG pH POC ABG pCO2 POC ABG pO2 ABG pO2 ABG HCO3 ABG O2 Saturation ABG Base Excess ABG Hemoglobin ABG Oxyhemoglobin ABG Sodium ABG Potassium ABG Chloride ABG Glucose Oxyhemoglobin Carboxyhemoglobin Sodium Potassium Chloride Carbon Dioxide BUN Creatinine Glucose POC Glucose 115 H 112 H 118 H Lactic Acid Calcium Phosphorus Magnesium Ferritin Total Bilirubin Direct Bilirubin AST ALT Alkaline Phosphatase Lactate Dehydrogenase C-Reactive Protein Total Protein Albumin Triglycerides Lipase Arterial Blood Glucose Arterial Blood Ionized Calcium Urine WBC (Auto) Coronavirus (PCR) SARS-CoV-2 IgG Ab Crossmatch 08/05/20 08/06/20 08/06/20 22:06 11:09 16:51 WBC RBC Hgb Hct MCV MCH MCHC RDW Lymph % (Auto) [place] % (Auto) Lymph # (Auto) [place] # (Auto) Baso # (Auto) Seg Neutrophils % Seg Neuts % (Manual) Lymphocytes % (Manual) Nucleated RBC % Seg Neutrophils # Seg Neutrophils # Man Lymphocytes # (Manual) Monocytes # (Manual) Eosinophils # (Manual) PT INR APTT D-Dimer Heparin Anti-Xa Level ABG pH POC ABG pCO2 POC ABG pO2 ABG pO2 ABG HCO3 ABG O2 Saturation ABG Base Excess ABG Hemoglobin ABG Oxyhemoglobin ABG Sodium ABG Potassium ABG Chloride ABG Glucose Oxyhemoglobin Carboxyhemoglobin Sodium Potassium Chloride Carbon Dioxide BUN Creatinine Glucose POC Glucose 120 H 125 H 135 H Lactic Acid Calcium Phosphorus Magnesium Ferritin Total Bilirubin Direct Bilirubin AST ALT Alkaline Phosphatase Lactate Dehydrogenase C-Reactive Protein Total Protein Albumin Triglycerides Lipase Arterial Blood Glucose Arterial Blood Ionized Calcium Urine WBC (Auto) Coronavirus (PCR) SARS-CoV-2 IgG Ab Crossmatch 08/06/20 08/07/20 08/07/20 20:21 08:15 12:46 WBC RBC Hgb Hct MCV MCH MCHC RDW Lymph % (Auto) [place] % (Auto) Lymph # (Auto) [place] # (Auto) Baso # (Auto) Seg Neutrophils % Seg Neuts % (Manual) Lymphocytes % (Manual) Nucleated RBC % Seg Neutrophils # Seg Neutrophils # Man Lymphocytes # (Manual) Monocytes # (Manual) Eosinophils # (Manual) PT INR APTT D-Dimer Heparin Anti-Xa Level ABG pH POC ABG pCO2 POC ABG pO2 ABG pO2 ABG HCO3 ABG O2 Saturation ABG Base Excess ABG Hemoglobin ABG Oxyhemoglobin ABG Sodium ABG Potassium ABG Chloride ABG Glucose Oxyhemoglobin Carboxyhemoglobin Sodium Potassium Chloride Carbon Dioxide BUN Creatinine Glucose POC Glucose 127 H 120 H 113 H Lactic Acid Calcium Phosphorus Magnesium Ferritin Total Bilirubin Direct Bilirubin AST ALT Alkaline Phosphatase Lactate Dehydrogenase C-Reactive Protein Total Protein Albumin Triglycerides Lipase Arterial Blood Glucose Arterial Blood Ionized Calcium Urine WBC (Auto) Coronavirus (PCR) SARS-CoV-2 IgG Ab Crossmatch 08/07/20 08/07/20 08/08/20 16:38 21:30 07:40 WBC RBC Hgb Hct MCV MCH MCHC RDW Lymph % (Auto) [place] % (Auto) Lymph # (Auto) [place] # (Auto) Baso # (Auto) Seg Neutrophils % Seg Neuts % (Manual) Lymphocytes % (Manual) Nucleated RBC % Seg Neutrophils # Seg Neutrophils # Man Lymphocytes # (Manual) Monocytes # (Manual) Eosinophils # (Manual) PT INR APTT D-Dimer Heparin Anti-Xa Level ABG pH POC ABG pCO2 POC ABG pO2 ABG pO2 ABG HCO3 ABG O2 Saturation ABG Base Excess ABG Hemoglobin ABG Oxyhemoglobin ABG Sodium ABG Potassium ABG Chloride ABG Glucose Oxyhemoglobin Carboxyhemoglobin Sodium Potassium Chloride Carbon Dioxide BUN Creatinine Glucose POC Glucose 119 H 129 H 115 H Lactic Acid Calcium Phosphorus Magnesium Ferritin Total Bilirubin Direct Bilirubin AST ALT Alkaline Phosphatase Lactate Dehydrogenase C-Reactive Protein Total Protein Albumin Triglycerides Lipase Arterial Blood Glucose Arterial Blood Ionized Calcium Urine WBC (Auto) Coronavirus (PCR) SARS-CoV-2 IgG Ab Crossmatch 08/08/20 08/08/20 08/08/20 11:31 16:03 21:17 WBC RBC Hgb Hct MCV MCH MCHC RDW Lymph % (Auto) [place] % (Auto) Lymph # (Auto) [place] # (Auto) Baso # (Auto) Seg Neutrophils % Seg Neuts % (Manual) Lymphocytes % (Manual) Nucleated RBC % Seg Neutrophils # Seg Neutrophils # Man Lymphocytes # (Manual) Monocytes # (Manual) Eosinophils # (Manual) PT INR APTT D-Dimer Heparin Anti-Xa Level ABG pH POC ABG pCO2 POC ABG pO2 ABG pO2 ABG HCO3 ABG O2 Saturation ABG Base Excess ABG Hemoglobin ABG Oxyhemoglobin ABG Sodium ABG Potassium ABG Chloride ABG Glucose Oxyhemoglobin Carboxyhemoglobin Sodium Potassium Chloride Carbon Dioxide BUN Creatinine Glucose POC Glucose 117 H 113 H 132 H Lactic Acid Calcium Phosphorus Magnesium Ferritin Total Bilirubin Direct Bilirubin AST ALT Alkaline Phosphatase Lactate Dehydrogenase C-Reactive Protein Total Protein Albumin Triglycerides Lipase Arterial Blood Glucose Arterial Blood Ionized Calcium Urine WBC (Auto) Coronavirus (PCR) SARS-CoV-2 IgG Ab Crossmatch 08/09/20 08/09/20 08/09/20 11:53 16:53 21:39 WBC RBC Hgb Hct MCV MCH MCHC RDW Lymph % (Auto) [place] % (Auto) Lymph # (Auto) [place] # (Auto) Baso # (Auto) Seg Neutrophils % Seg Neuts % (Manual) Lymphocytes % (Manual) Nucleated RBC % Seg Neutrophils # Seg Neutrophils # Man Lymphocytes # (Manual) Monocytes # (Manual) Eosinophils # (Manual) PT INR APTT D-Dimer Heparin Anti-Xa Level ABG pH POC ABG pCO2 POC ABG pO2 ABG pO2 ABG HCO3 ABG O2 Saturation ABG Base Excess ABG Hemoglobin ABG Oxyhemoglobin ABG Sodium ABG Potassium ABG Chloride ABG Glucose Oxyhemoglobin Carboxyhemoglobin Sodium Potassium Chloride Carbon Dioxide BUN Creatinine Glucose POC Glucose 131 H 153 H 114 H Lactic Acid Calcium Phosphorus Magnesium Ferritin Total Bilirubin Direct Bilirubin AST ALT Alkaline Phosphatase Lactate Dehydrogenase C-Reactive Protein Total Protein Albumin Triglycerides Lipase Arterial Blood Glucose Arterial Blood Ionized Calcium Urine WBC (Auto) Coronavirus (PCR) SARS-CoV-2 IgG Ab Crossmatch 08/10/20 08/10/20 08/10/20 07:58 11:57 16:53 WBC RBC Hgb Hct MCV MCH MCHC RDW Lymph % (Auto) [place] % (Auto) Lymph # (Auto) [place] # (Auto) Baso # (Auto) Seg Neutrophils % Seg Neuts % (Manual) Lymphocytes % (Manual) Nucleated RBC % Seg Neutrophils # Seg Neutrophils # Man Lymphocytes # (Manual) Monocytes # (Manual) Eosinophils # (Manual) PT INR APTT D-Dimer Heparin Anti-Xa Level ABG pH POC ABG pCO2 POC ABG pO2 ABG pO2 ABG HCO3 ABG O2 Saturation ABG Base Excess ABG Hemoglobin ABG Oxyhemoglobin ABG Sodium ABG Potassium ABG Chloride ABG Glucose Oxyhemoglobin Carboxyhemoglobin Sodium Potassium Chloride Carbon Dioxide BUN Creatinine Glucose POC Glucose 106 H 139 H 140 H Lactic Acid Calcium Phosphorus Magnesium Ferritin Total Bilirubin Direct Bilirubin AST ALT Alkaline Phosphatase Lactate Dehydrogenase C-Reactive Protein Total Protein Albumin Triglycerides Lipase Arterial Blood Glucose Arterial Blood Ionized Calcium Urine WBC (Auto) Coronavirus (PCR) SARS-CoV-2 IgG Ab Crossmatch 08/10/20 08/11/20 08/11/20 20:45 12:07 15:58 WBC RBC Hgb Hct MCV MCH MCHC RDW Lymph % (Auto) [place] % (Auto) Lymph # (Auto) [place] # (Auto) Baso # (Auto) Seg Neutrophils % Seg Neuts % (Manual) Lymphocytes % (Manual) Nucleated RBC % Seg Neutrophils # Seg Neutrophils # Man Lymphocytes # (Manual) Monocytes # (Manual) Eosinophils # (Manual) PT INR APTT D-Dimer Heparin Anti-Xa Level ABG pH POC ABG pCO2 POC ABG pO2 ABG pO2 ABG HCO3 ABG O2 Saturation ABG Base Excess ABG Hemoglobin ABG Oxyhemoglobin ABG Sodium ABG Potassium ABG Chloride ABG Glucose Oxyhemoglobin Carboxyhemoglobin Sodium Potassium Chloride Carbon Dioxide BUN Creatinine Glucose POC Glucose 161 H 114 H 133 H Lactic Acid Calcium Phosphorus Magnesium Ferritin Total Bilirubin Direct Bilirubin AST ALT Alkaline Phosphatase Lactate Dehydrogenase C-Reactive Protein Total Protein Albumin Triglycerides Lipase Arterial Blood Glucose Arterial Blood Ionized Calcium Urine WBC (Auto) Coronavirus (PCR) SARS-CoV-2 IgG Ab Crossmatch 08/11/20 08/11/20 08/12/20 18:43 20:45 07:46 WBC RBC Hgb Hct MCV MCH MCHC RDW Lymph % (Auto) [place] % (Auto) Lymph # (Auto) [place] # (Auto) Baso # (Auto) Seg Neutrophils % Seg Neuts % (Manual) Lymphocytes % (Manual) Nucleated RBC % Seg Neutrophils # Seg Neutrophils # Man Lymphocytes # (Manual) Monocytes # (Manual) Eosinophils # (Manual) PT INR APTT D-Dimer Heparin Anti-Xa Level ABG pH POC ABG pCO2 51.0 H POC ABG pO2 ABG pO2 ABG HCO3 ABG O2 Saturation ABG Base Excess ABG Hemoglobin ABG Oxyhemoglobin ABG Sodium ABG Potassium ABG Chloride ABG Glucose 149 H Oxyhemoglobin Carboxyhemoglobin Sodium Potassium Chloride Carbon Dioxide BUN Creatinine Glucose POC Glucose 111 H 112 H Lactic Acid Calcium Phosphorus Magnesium Ferritin Total Bilirubin Direct Bilirubin AST ALT Alkaline Phosphatase Lactate Dehydrogenase C-Reactive Protein Total Protein Albumin Triglycerides Lipase Arterial Blood Glucose 149 H Arterial Blood Ionized Calcium Urine WBC (Auto) Coronavirus (PCR) SARS-CoV-2 IgG Ab Crossmatch 08/12/20 08/12/20 08/13/20 18:34 21:09 16:10 WBC RBC Hgb Hct MCV MCH MCHC RDW Lymph % (Auto) [place] % (Auto) Lymph # (Auto) [place] # (Auto) Baso # (Auto) Seg Neutrophils % Seg Neuts % (Manual) Lymphocytes % (Manual) Nucleated RBC % Seg Neutrophils # Seg Neutrophils # Man Lymphocytes # (Manual) Monocytes # (Manual) Eosinophils # (Manual) PT INR APTT D-Dimer Heparin Anti-Xa Level ABG pH POC ABG pCO2 POC ABG pO2 ABG pO2 ABG HCO3 ABG O2 Saturation ABG Base Excess ABG Hemoglobin ABG Oxyhemoglobin ABG Sodium ABG Potassium ABG Chloride ABG Glucose Oxyhemoglobin Carboxyhemoglobin Sodium Potassium Chloride 97.2 L Carbon Dioxide BUN Creatinine 0.5 L Glucose 132 H POC Glucose 120 H 140 H Lactic Acid Calcium Phosphorus Magnesium Ferritin Total Bilirubin Direct Bilirubin AST ALT Alkaline Phosphatase Lactate Dehydrogenase C-Reactive Protein Total Protein Albumin Triglycerides Lipase Arterial Blood Glucose Arterial Blood Ionized Calcium Urine WBC (Auto) Coronavirus (PCR) SARS-CoV-2 IgG Ab Crossmatch 08/13/20 08/14/20 08/14/20 21:16 11:20 16:14 WBC RBC Hgb Hct MCV MCH MCHC RDW Lymph % (Auto) [place] % (Auto) Lymph # (Auto) [place] # (Auto) Baso # (Auto) Seg Neutrophils % Seg Neuts % (Manual) Lymphocytes % (Manual) Nucleated RBC % Seg Neutrophils # Seg Neutrophils # Man Lymphocytes # (Manual) Monocytes # (Manual) Eosinophils # (Manual) PT INR APTT D-Dimer Heparin Anti-Xa Level ABG pH POC ABG pCO2 POC ABG pO2 ABG pO2 ABG HCO3 ABG O2 Saturation ABG Base Excess ABG Hemoglobin ABG Oxyhemoglobin ABG Sodium ABG Potassium ABG Chloride ABG Glucose Oxyhemoglobin Carboxyhemoglobin Sodium Potassium Chloride Carbon Dioxide BUN Creatinine Glucose POC Glucose 163 H 109 H 118 H Lactic Acid Calcium Phosphorus Magnesium Ferritin Total Bilirubin Direct Bilirubin AST ALT Alkaline Phosphatase Lactate Dehydrogenase C-Reactive Protein Total Protein Albumin Triglycerides Lipase Arterial Blood Glucose Arterial Blood Ionized Calcium Urine WBC (Auto) Coronavirus (PCR) SARS-CoV-2 IgG Ab Crossmatch 08/14/20 08/15/20 08/15/20 20:11 11:58 16:14 WBC RBC Hgb Hct MCV MCH MCHC RDW Lymph % (Auto) [place] % (Auto) Lymph # (Auto) [place] # (Auto) Baso # (Auto) Seg Neutrophils % Seg Neuts % (Manual) Lymphocytes % (Manual) Nucleated RBC % Seg Neutrophils # Seg Neutrophils # Man Lymphocytes # (Manual) Monocytes # (Manual) Eosinophils # (Manual) PT INR APTT D-Dimer Heparin Anti-Xa Level ABG pH POC ABG pCO2 POC ABG pO2 ABG pO2 ABG HCO3 ABG O2 Saturation ABG Base Excess ABG Hemoglobin ABG Oxyhemoglobin ABG Sodium ABG Potassium ABG Chloride ABG Glucose Oxyhemoglobin Carboxyhemoglobin Sodium Potassium Chloride Carbon Dioxide BUN Creatinine Glucose POC Glucose 139 H 120 H 118 H Lactic Acid Calcium Phosphorus Magnesium Ferritin Total Bilirubin Direct Bilirubin AST ALT Alkaline Phosphatase Lactate Dehydrogenase C-Reactive Protein Total Protein Albumin Triglycerides Lipase Arterial Blood Glucose Arterial Blood Ionized Calcium Urine WBC (Auto) Coronavirus (PCR) SARS-CoV-2 IgG Ab Crossmatch 08/16/20 08/16/20 08/16/20 12:02 15:14 20:25 WBC RBC Hgb Hct MCV MCH MCHC RDW Lymph % (Auto) [place] % (Auto) Lymph # (Auto) [place] # (Auto) Baso # (Auto) Seg Neutrophils % Seg Neuts % (Manual) Lymphocytes % (Manual) Nucleated RBC % Seg Neutrophils # Seg Neutrophils # Man Lymphocytes # (Manual) Monocytes # (Manual) Eosinophils # (Manual) PT INR APTT D-Dimer Heparin Anti-Xa Level ABG pH POC ABG pCO2 POC ABG pO2 ABG pO2 ABG HCO3 ABG O2 Saturation ABG Base Excess ABG Hemoglobin ABG Oxyhemoglobin ABG Sodium ABG Potassium ABG Chloride ABG Glucose Oxyhemoglobin Carboxyhemoglobin Sodium Potassium Chloride Carbon Dioxide BUN Creatinine Glucose POC Glucose 128 H 143 H 132 H Lactic Acid Calcium Phosphorus Magnesium Ferritin Total Bilirubin Direct Bilirubin AST ALT Alkaline Phosphatase Lactate Dehydrogenase C-Reactive Protein Total Protein Albumin Triglycerides Lipase Arterial Blood Glucose Arterial Blood Ionized Calcium Urine WBC (Auto) Coronavirus (PCR) SARS-CoV-2 IgG Ab Crossmatch 08/17/20 08/17/20 08/17/20 07:34 10:59 16:10 WBC RBC Hgb Hct MCV MCH MCHC RDW Lymph % (Auto) [place] % (Auto) Lymph # (Auto) [place] # (Auto) Baso # (Auto) Seg Neutrophils % Seg Neuts % (Manual) Lymphocytes % (Manual) Nucleated RBC % Seg Neutrophils # Seg Neutrophils # Man Lymphocytes # (Manual) Monocytes # (Manual) Eosinophils # (Manual) PT INR APTT D-Dimer Heparin Anti-Xa Level ABG pH POC ABG pCO2 POC ABG pO2 ABG pO2 ABG HCO3 ABG O2 Saturation ABG Base Excess ABG Hemoglobin ABG Oxyhemoglobin ABG Sodium ABG Potassium ABG Chloride ABG Glucose Oxyhemoglobin Carboxyhemoglobin Sodium Potassium Chloride Carbon Dioxide BUN Creatinine Glucose POC Glucose 113 H 125 H 120 H Lactic Acid Calcium Phosphorus Magnesium Ferritin Total Bilirubin Direct Bilirubin AST ALT Alkaline Phosphatase Lactate Dehydrogenase C-Reactive Protein Total Protein Albumin Triglycerides Lipase Arterial Blood Glucose Arterial Blood Ionized Calcium Urine WBC (Auto) Coronavirus (PCR) SARS-CoV-2 IgG Ab Crossmatch 08/17/20 08/18/20 08/18/20 20:13 11:59 16:35 WBC RBC Hgb Hct MCV MCH MCHC RDW Lymph % (Auto) [place] % (Auto) Lymph # (Auto) [place] # (Auto) Baso # (Auto) Seg Neutrophils % Seg Neuts % (Manual) Lymphocytes % (Manual) Nucleated RBC % Seg Neutrophils # Seg Neutrophils # Man Lymphocytes # (Manual) Monocytes # (Manual) Eosinophils # (Manual) PT INR APTT D-Dimer Heparin Anti-Xa Level ABG pH POC ABG pCO2 POC ABG pO2 ABG pO2 ABG HCO3 ABG O2 Saturation ABG Base Excess ABG Hemoglobin ABG Oxyhemoglobin ABG Sodium ABG Potassium ABG Chloride ABG Glucose Oxyhemoglobin Carboxyhemoglobin Sodium Potassium Chloride Carbon Dioxide BUN Creatinine Glucose POC Glucose 148 H 140 H 126 H Lactic Acid Calcium Phosphorus Magnesium Ferritin Total Bilirubin Direct Bilirubin AST ALT Alkaline Phosphatase Lactate Dehydrogenase C-Reactive Protein Total Protein Albumin Triglycerides Lipase Arterial Blood Glucose Arterial Blood Ionized Calcium Urine WBC (Auto) Coronavirus (PCR) SARS-CoV-2 IgG Ab Crossmatch 08/18/20 08/19/20 08/19/20 21:15 11:43 15:39 WBC RBC Hgb Hct MCV MCH MCHC RDW Lymph % (Auto) [place] % (Auto) Lymph # (Auto) [place] # (Auto) Baso # (Auto) Seg Neutrophils % Seg Neuts % (Manual) Lymphocytes % (Manual) Nucleated RBC % Seg Neutrophils # Seg Neutrophils # Man Lymphocytes # (Manual) Monocytes # (Manual) Eosinophils # (Manual) PT INR APTT D-Dimer Heparin Anti-Xa Level ABG pH POC ABG pCO2 POC ABG pO2 ABG pO2 ABG HCO3 ABG O2 Saturation ABG Base Excess ABG Hemoglobin ABG Oxyhemoglobin ABG Sodium ABG Potassium ABG Chloride ABG Glucose Oxyhemoglobin Carboxyhemoglobin Sodium Potassium Chloride Carbon Dioxide BUN Creatinine Glucose POC Glucose 119 H 109 H 117 H Lactic Acid Calcium Phosphorus Magnesium Ferritin Total Bilirubin Direct Bilirubin AST ALT Alkaline Phosphatase Lactate Dehydrogenase C-Reactive Protein Total Protein Albumin Triglycerides Lipase Arterial Blood Glucose Arterial Blood Ionized Calcium Urine WBC (Auto) Coronavirus (PCR) SARS-CoV-2 IgG Ab Crossmatch 08/20/20 08/20/20 08/20/20 07:46 15:58 20:37 WBC RBC Hgb Hct MCV MCH MCHC RDW Lymph % (Auto) [place] % (Auto) Lymph # (Auto) [place] # (Auto) Baso # (Auto) Seg Neutrophils % Seg Neuts % (Manual) Lymphocytes % (Manual) Nucleated RBC % Seg Neutrophils # Seg Neutrophils # Man Lymphocytes # (Manual) Monocytes # (Manual) Eosinophils # (Manual) PT INR APTT D-Dimer Heparin Anti-Xa Level ABG pH POC ABG pCO2 POC ABG pO2 ABG pO2 ABG HCO3 ABG O2 Saturation ABG Base Excess ABG Hemoglobin ABG Oxyhemoglobin ABG Sodium ABG Potassium ABG Chloride ABG Glucose Oxyhemoglobin Carboxyhemoglobin Sodium Potassium Chloride Carbon Dioxide BUN Creatinine Glucose POC Glucose 106 H 133 H 144 H Lactic Acid Calcium Phosphorus Magnesium Ferritin Total Bilirubin Direct Bilirubin AST ALT Alkaline Phosphatase Lactate Dehydrogenase C-Reactive Protein Total Protein Albumin Triglycerides Lipase Arterial Blood Glucose Arterial Blood Ionized Calcium Urine WBC (Auto) Coronavirus (PCR) SARS-CoV-2 IgG Ab Crossmatch 08/21/20 08/21/20 08/21/20 07:44 11:42 16:43 WBC RBC Hgb Hct MCV MCH MCHC RDW Lymph % (Auto) [place] % (Auto) Lymph # (Auto) [place] # (Auto) Baso # (Auto) Seg Neutrophils % Seg Neuts % (Manual) Lymphocytes % (Manual) Nucleated RBC % Seg Neutrophils # Seg Neutrophils # Man Lymphocytes # (Manual) Monocytes # (Manual) Eosinophils # (Manual) PT INR APTT D-Dimer Heparin Anti-Xa Level ABG pH POC ABG pCO2 POC ABG pO2 ABG pO2 ABG HCO3 ABG O2 Saturation ABG Base Excess ABG Hemoglobin ABG Oxyhemoglobin ABG Sodium ABG Potassium ABG Chloride ABG Glucose Oxyhemoglobin Carboxyhemoglobin Sodium Potassium Chloride Carbon Dioxide BUN Creatinine Glucose POC Glucose 123 H 135 H 128 H Lactic Acid Calcium Phosphorus Magnesium Ferritin Total Bilirubin Direct Bilirubin AST ALT Alkaline Phosphatase Lactate Dehydrogenase C-Reactive Protein Total Protein Albumin Triglycerides Lipase Arterial Blood Glucose Arterial Blood Ionized Calcium Urine WBC (Auto) Coronavirus (PCR) SARS-CoV-2 IgG Ab Crossmatch 08/22/20 08/22/20 08/22/20 05:11 05:11 11:12 WBC RBC Hgb Hct MCV 95 H MCH MCHC RDW 16.4 H Lymph % (Auto) [place] % (Auto) 9.7 H Lymph # (Auto) [place] # (Auto) 1.0 H Baso # (Auto) Seg Neutrophils % Seg Neuts % (Manual) Lymphocytes % (Manual) Nucleated RBC % Seg Neutrophils # Seg Neutrophils # Man Lymphocytes # (Manual) Monocytes # (Manual) Eosinophils # (Manual) PT INR APTT D-Dimer Heparin Anti-Xa Level ABG pH POC ABG pCO2 POC ABG pO2 ABG pO2 ABG HCO3 ABG O2 Saturation ABG Base Excess ABG Hemoglobin ABG Oxyhemoglobin ABG Sodium ABG Potassium ABG Chloride ABG Glucose Oxyhemoglobin Carboxyhemoglobin Sodium Potassium 3.3 L Chloride Carbon Dioxide 31 H BUN Creatinine 0.6 L Glucose POC Glucose 116 H Lactic Acid Calcium Phosphorus 5.10 H Magnesium Ferritin Total Bilirubin Direct Bilirubin AST ALT Alkaline Phosphatase Lactate Dehydrogenase C-Reactive Protein Total Protein Albumin Triglycerides Lipase Arterial Blood Glucose Arterial Blood Ionized Calcium Urine WBC (Auto) Coronavirus (PCR) SARS-CoV-2 IgG Ab Crossmatch 08/22/20 08/22/20 08/23/20 15:43 20:31 11:24 WBC RBC Hgb Hct MCV MCH MCHC RDW Lymph % (Auto) [place] % (Auto) Lymph # (Auto) [place] # (Auto) Baso # (Auto) Seg Neutrophils % Seg Neuts % (Manual) Lymphocytes % (Manual) Nucleated RBC % Seg Neutrophils # Seg Neutrophils # Man Lymphocytes # (Manual) Monocytes # (Manual) Eosinophils # (Manual) PT INR APTT D-Dimer Heparin Anti-Xa Level ABG pH POC ABG pCO2 POC ABG pO2 ABG pO2 ABG HCO3 ABG O2 Saturation ABG Base Excess ABG Hemoglobin ABG Oxyhemoglobin ABG Sodium ABG Potassium ABG Chloride ABG Glucose Oxyhemoglobin Carboxyhemoglobin Sodium Potassium Chloride Carbon Dioxide BUN Creatinine Glucose POC Glucose 118 H 110 H 116 H Lactic Acid Calcium Phosphorus Magnesium Ferritin Total Bilirubin Direct Bilirubin AST ALT Alkaline Phosphatase Lactate Dehydrogenase C-Reactive Protein Total Protein Albumin Triglycerides Lipase Arterial Blood Glucose Arterial Blood Ionized Calcium Urine WBC (Auto) Coronavirus (PCR) SARS-CoV-2 IgG Ab Crossmatch 08/23/20 08/23/20 15:48 21:04 WBC RBC Hgb Hct MCV MCH MCHC RDW Lymph % (Auto) [place] % (Auto) Lymph # (Auto) [place] # (Auto) Baso # (Auto) Seg Neutrophils % Seg Neuts % (Manual) Lymphocytes % (Manual) Nucleated RBC % Seg Neutrophils # Seg Neutrophils # Man Lymphocytes # (Manual) Monocytes # (Manual) Eosinophils # (Manual) PT INR APTT D-Dimer Heparin Anti-Xa Level ABG pH POC ABG pCO2 POC ABG pO2 ABG pO2 ABG HCO3 ABG O2 Saturation ABG Base Excess ABG Hemoglobin ABG Oxyhemoglobin ABG Sodium ABG Potassium ABG Chloride ABG Glucose Oxyhemoglobin Carboxyhemoglobin Sodium Potassium Chloride Carbon Dioxide BUN Creatinine Glucose POC Glucose 129 H 132 H Lactic Acid Calcium Phosphorus Magnesium Ferritin Total Bilirubin Direct Bilirubin AST ALT Alkaline Phosphatase Lactate Dehydrogenase C-Reactive Protein Total Protein Albumin Triglycerides Lipase Arterial Blood Glucose Arterial Blood Ionized Calcium Urine WBC (Auto) Coronavirus (PCR) SARS-CoV-2 IgG Ab Crossmatch Allied health notes reviewed: nursing
--- NOTE | 2020-08-24 15:56 | Progress Note ---
Assessment and Plan Assessment and plan: Positive COVID-19 test; 05/10/2020 Negative COVID-19 test; 06/30/2020 --Hypokalemia; replenish with KCl --Acute hypoxemic resp failure; oxygen dependent on 2 L NC, today ,requiring intermittent BiPAP Due to COVID-19 pneumonia --Persistent sinus tachycardia: Multifactorial We will closely monitor --Severe COVID-19 bilateral pneumonia Coronavirus protocol: Completed steroids and remdesivir therapy, isolation precautions, Received management per COVID-19 protocol --Pneumothorax status post right chest tube Chest tube removed 07/23/2020 Post removal chest x-ray no pneumothorax Patient is requiring 3 to 4 L nasal cannula And intermittent BiPAP --Elevated D-dimers; Patient had CTA chest ; negative for PE, Lower extremity venous Doppler negative for DVT --Pseudomonas bacteremia; ID following, completed cefepime --Severe sepsis/septic shock, monitor off pressors Completed cefepime, monitor off antibiotics -- Acute kidney injury (SEN) , likely vasomotor nephropathy Resolved, avoid nephrotoxins --Acute on chronic anemia Guaiac test positive, GI evaluated the patient Patient H&H is normal range -- Elevated liver function tests; resolved LFTs within normal limits --Colonic distention GI evaluated colonic distention resolved recommend stool softeners -- DVT prophylaxis On Lovenox CTA chest negative for PE,LE DVT negative, therapeutic Lovenox DC'd Changed to prophylactic Lovenox Patient is medically stable for discharge Disposition; insurance did not approve IRU Possible subacute rehab placement DC planning per case management Plan of care reviewed with the patient and his nurse Brief history: 50 YO Male with Obesity, ETOH Dependence presents to ED for evaluation. Patient states that he has experienced shortness of breath, generalized weakness, fatigue, malaise, body aches, decreased exercise tolerance over the past 5 days with persistently worsening symptoms over the same timeframe. EMS was notified and upon arrival the patient was found to be in distress with a pulse oximetry of 76% on room air as well as fever to 103 F. Patient was placed on supplemental oxygen and subsequently transported to [facility] for further care and evaluation. Patient seen and evaluated in the emergency department. All lab and imaging studies reviewed. Patient underwent chest x-ray and was found to have bilateral pneumonia. Patient also found to have a pulse oximetry of 86% on 4 L nasal cannula. Patient initiated on a high flow submental oxygen with improvement of pulse oximetry. Patient admitted to medical floor and initiated on pneumonia protocol as well as COVID-19 protocol. Patient also found to have acute kidney injury as well as elevated liver function test suspected secondary to alcohol dependence. Patient reports being diagnosed with coronavirus 2 days ago. No prior admission for review. 07/23/2020; patient remains on high flow oxygen, wean oxygen as tolerated, severe hypokalemia Replenish per protocol monitor levels 07/24/2020; patient had chest tube removal yesterday 07/23/2019 and, post removal chest x-ray no pneumothorax no acute abnormalities Patient feels slightly better continues to require high flow oxygen Wean as tolerated, physical and occupational therapy, DC planning 07/26/2020; patient on 3 L nasal cannula oxygen, patient feels better 07/27/2020; patient was saturating well on 3 L of nasal cannula oxygen, however today patient is on high flow oxygen 15 L Complains of some congestion, wean oxygen levels to 3-5 as tolerated Discharge planning LTAC has refused patient,Possible home with home health versus placement when medically stable 07/28/2020; continue to wean oxygen, patient is on 10 L, awaiting placement 07/29/2020; continues to be on 10 L nasal cannula oxygen, wean as tolerated Patient is on empiric therapeutic dose Lovenox, due to elevated D-dimers Patient is stable for CTA chest today, follow the report and adjust Lovenox as needed DC planning per case management, with pending placement 07/30/2020; patient feels slightly better, oxygen reduced to 8 L of nasal cannula Will check PT OT, pending placement 07/31/2020 :Patient on 8 L of nasal cannula oxygen 08/03/2020; patient's oxygen requirement has come down to 3-4 and half liters nasal cannula Will try to wean oxygen as tolerated, respiratory therapist assisting to reach the goal Possible discharge home in 1 to 2 days if stable Plan of care reviewed with the patient and his nurse 08/04/2020; patient is requiring 3 to 4 L nasal cannula oxygen, case management to set up home oxygen Patient is hemodynamically and clinically stable for discharge, pending placement IRU Vs [facility] And of care reviewed with the patient and his nurse as well as the case management 08/05/2020 ; COVID-19 test requested , patient is hemodynamically and clinically stable for discharge Patient is requiring 4 L of nasal cannula oxygen . medically stable for discharge 08/06/2020; patient is hemodynamically and clinically stable for discharge and transfer to IRU unit today Pre-discharge COVID-19 test is negative, pending insurance authorization 08/07/20; patient is accepted by inpatient rehab unit for admission, pending in surance authorization Stable for discharge 08/08/2020; patient is stable for discharge to inpatient rehab unit, pending insurance approval 08/09/2020; case specialist reports that insurance has not approved inpatient rehab placement for this patient Will evaluate for home oxygen, set up home oxygen if eligible, and plan discharge home with home health when patient is hemodynamically stable 08/10/2020; patient continues to have persistent tachycardia, and persistent hypoxia requiring 4 L of nasal cannula oxygen As well as intermittent BiPAP, continue current management 08/11/2020; patient continues to require oxygen and intermittent BiPAP, awaiting IRU placement Versus home with home health and home oxygen, DC planning per case management 08/12/2020; awaiting IRU placement versus home with home health on home oxygen 08/14/2020-08/18/2020; patient continues to require 4 L of nasal cannula oxygen Discharge planning is in process, PT recommend acute inpatient rehab, awaiting insurance approval CM reports insurance denied inpatient rehab placement option 08/19/2020; I spoke with insurance physician Dr. Lopez, P2P and discussed patient's condition and the need for inpatient rehab However Dr. Macias reports that PT/OT evaluation and documentation do not reflect that patient can complete 3 hours of acute therapy in acute rehab. It reflects that he can hardly walk few steps/few feet. Advised to reevaluate if he meets the above requirements. Dr. Macias also reports that she can approve for subacute rehab placement. --08/20/2020 ;patient awaiting placement, inpatient rehab versus subacute versus home health DC planning per case management 08/21/2020; pending subacute rehab placement 08/22/2020; on 2 L nasal cannula oxygen, awaiting placement 08/23/2020; awaiting placement/insurance authorization 08/24/2020; awaiting placement, insurance authorization History Interval history: Patient is alert and awake On 2 to 4 L of nasal cannula oxygen Awaiting placement Pending insurance approval No new complaints vital signs noted Hospitalist Physical - Constitutional Vitals: Temp Pulse Resp BP Pulse Ox 98.6 F 127 H 18 110/72 87 08/24/20 11:31 08/24/20 11:31 08/24/20 11:31 08/24/20 11:31 08/24/20 11:31 General appearance: Present: no acute distress, well-nourished - EENT Eyes: Present: PERRL, EOM intact - Neck Neck: Present: supple, normal ROM - Respiratory Respiratory effort: normal Respiratory: bilateral: diminished, negative: rales, rhonchi, wheezing - Cardiovascular Rhythm: regular Heart Sounds: Present: S1 & S2 - Extremities Extremities: no ischemia, No edema - Abdominal General gastrointestinal: soft, non-tender, non-distended - Integumentary Integumentary: Present: clear, warm - Psychiatric Psychiatric: appropriate mood/affect, cooperative - Neurologic Neurologic: CNII-XII intact, moves all extremities HEART Score - HEART Score Troponin: Troponin T 0.015 ng/mL (0.00-0.029) 07/07/20 10:00 Results - Labs CBC & Chem 7: 08/22/20 05:11 08/23/20 04:39 Labs: Laboratory Last Values WBC 10.6 K/mm3 (4.5-11.0) 08/22/20 05:11 RBC 4.13 M/mm3 (3.65-5.03) 08/22/20 05:11 Hgb 12.9 gm/dl (11.8-15.2) 08/22/20 05:11 Hct 39.1 % (35.5-45.6) 08/22/20 05:11 MCV 95 fl (84-94) H 08/22/20 05:11 MCH 31 pg (28-32) 08/22/20 05:11 MCHC 33 % (32-34) 08/22/20 05:11 RDW 16.4 % (13.2-15.2) H 08/22/20 05:11 Plt Count 331 K/mm3 (140-440) 08/22/20 05:11 Lymph % (Auto) 18.6 % (13.4-35.0) 08/22/20 05:11 [place] % (Auto) 9.7 % (0.0-7.3) H 08/22/20 05:11 Eos % (Auto) 3.4 % (0.0-4.3) 08/22/20 05:11 Baso % (Auto) 0.5 % (0.0-1.8) 08/22/20 05:11 Lymph # (Auto) 2.0 K/mm3 (1.2-5.4) 08/22/20 05:11 [place] # (Auto) 1.0 K/mm3 (0.0-0.8) H 08/22/20 05:11 Eos # (Auto) 0.4 K/mm3 (0.0-0.4) 08/22/20 05:11 Baso # (Auto) 0.0 K/mm3 (0.0-0.1) 08/22/20 05:11 Add Manual Diff Complete 07/13/20 08:31 Total Counted 100 07/13/20 08:31 Seg Neutrophils % 67.8 % (40.0-70.0) 08/22/20 05:11 Seg Neuts % (Manual) 96.0 % (40.0-70.0) H 07/13/20 08:31 Band Neutrophils % 0 % 07/13/20 08:31 Lymphocytes % (Manual) 2.0 % (13.4-35.0) L 07/13/20 08:31 Reactive Lymphs % (Man) 0 % 07/13/20 08:31 Monocytes % (Manual) 2.0 % (0.0-7.3) 07/13/20 08:31 Eosinophils % (Manual) 0 % (0.0-4.3) 07/13/20 08:31 Basophils % (Manual) 0 % (0.0-1.8) 07/13/20 08:31 Metamyelocytes % 0 % 07/13/20 08:31 Myelocytes % 0 % 07/13/20 08:31 Promyelocytes % 0 % 07/13/20 08:31 Blast Cells % 0 % 07/13/20 08:31 Nucleated RBC % Not Reportable 07/13/20 08:31 Seg Neutrophils # 7.2 K/mm3 (1.8-7.7) 08/22/20 05:11 Seg Neutrophils # Man 20.4 K/mm3 (1.8-7.7) H 07/13/20 08:31 Band Neutrophils # 0.0 K/mm3 07/13/20 08:31 Lymphocytes # (Manual) 0.4 K/mm3 (1.2-5.4) L 07/13/20 08:31 Abs React Lymphs (Man) 0.0 K/mm3 07/13/20 08:31 Monocytes # (Manual) 0.4 K/mm3 (0.0-0.8) 07/13/20 08:31 Eosinophils # (Manual) 0.0 K/mm3 (0.0-0.4) 07/13/20 08:31 Basophils # (Manual) 0.0 K/mm3 (0.0-0.1) 07/13/20 08:31 Metamyelocytes # 0.0 K/mm3 07/13/20 08:31 Myelocytes # 0.0 K/mm3 07/13/20 08:31 Promyelocytes # 0.0 K/mm3 07/13/20 08:31 Blast Cells # 0.0 K/mm3 07/13/20 08:31 WBC Morphology Not Reportable 07/13/20 08:31 Hypersegmented Neuts Not Reportable 07/13/20 08:31 Hyposegmented Neuts Not Reportable 07/13/20 08:31 Hypogranular Neuts Not Reportable 07/13/20 08:31 Smudge Cells Not Reportable 07/13/20 08:31 Toxic Granulation Not Reportable 07/13/20 08:31 Toxic Vacuolation Not Reportable 07/13/20 08:31 Dohle Bodies Not Reportable 07/13/20 08:31 Pelger-Huet Anomaly Not Reportable 07/13/20 08:31 Jason Rods Not Reportable 07/13/20 08:31 Platelet Estimate Consistent w auto 07/13/20 08:31 Clumped Platelets Not Reportable 07/13/20 08:31 Plt Clumps, EDTA Not Reportable 07/13/20 08:31 Large Platelets Not Reportable 07/13/20 08:31 Giant Platelets Not Reportable 07/13/20 08:31 Platelet Satelliting Not Reportable 07/13/20 08:31 Plt Morphology Comment Not Reportable 07/13/20 08:31 RBC Morphology Not Reportable 07/13/20 08:31 Dimorphic RBCs Not Reportable 07/13/20 08:31 Polychromasia Not Reportable 07/13/20 08:31 Hypochromasia Not Reportable 07/13/20 08:31 Poikilocytosis Not Reportable 07/13/20 08:31 Anisocytosis Not Reportable 07/13/20 08:31 Microcytosis Not Reportable 07/13/20 08:31 Macrocytosis Not Reportable 07/13/20 08:31 Spherocytes Not Reportable 07/13/20 08:31 Pappenheimer Bodies Not Reportable 07/13/20 08:31 Sickle Cells Not Reportable 07/13/20 08:31 Target Cells Not Reportable 07/13/20 08:31 Tear Drop Cells Not Reportable 07/13/20 08:31 Ovalocytes Not Reportable 07/13/20 08:31 Stomatocytes Few 07/13/20 08:31 Helmet Cells Not Reportable 07/13/20 08:31 [place] Bodies Not Reportable 07/13/20 08:31 [place] Rings Not Reportable 07/13/20 08:31 [place] Cells Not Reportable 07/13/20 08:31 Bite Cells Not Reportable 07/13/20 08:31 Crenated Cell Not Reportable 07/13/20 08:31 Elliptocytes Not Reportable 07/13/20 08:31 Acanthocytes (Spur) Not Reportable 07/13/20 08:31 Rouleaux Not Reportable 07/13/20 08:31 Hemoglobin C Crystals Not Reportable 07/13/20 08:31 Schistocytes Not Reportable 07/13/20 08:31 Malaria parasites Not Reportable 07/13/20 08:31 Josue Bodies Not Reportable 07/13/20 08:31 Hem Pathologist Commnt No 07/13/20 08:31 PT 11.8 Sec. (12.2-14.9) L 06/22/20 14:29 INR 0.88 (0.87-1.13) 06/22/20 14:29 APTT 23.5 Sec. (24.2-36.6) L 06/22/20 14:29 D-Dimer 1887.82 ng/mlDDU (0-234) H 05/20/20 08:16 Heparin Anti-Xa Level 0.37 U.I./ml (0.3-0.7) 07/02/20 16:08 ABG pH 7.437 (7.320-7.450) 08/11/20 18:43 POC ABG pCO2 51.0 mmHg (32.0-48.0) H 08/11/20 18:43 ABG pCO2 53.1 mm Hg 07/08/20 Unknown POC ABG pO2 84.9 mmHg (83-108) 08/11/20 18:43 ABG pO2 75.3 mm Hg (80.0-90.0) L 07/08/20 Unknown POC ABG HCO3 33.6 08/11/20 18:43 ABG HCO3 34.3 mmol/L (20.0-26.0) H 07/08/20 Unknown ABG O2 Saturation 96.5 % (95.0-99.0) 07/08/20 Unknown ABG O2 Content 13.5 (0.0-44) 07/08/20 Unknown POC ABG Base Excess 7.9 08/11/20 18:43 ABG Base Excess 8.7 mmol/L (-2.0-3.0) H 07/08/20 Unknown ABG Hemoglobin 13.8 (12.0-17.5) 08/11/20 18:43 ABG Oxyhemoglobin 94.6 (94-98) 08/11/20 18:43 ABG Carboxyhemoglobin 2.4 % (0.0-5.0) 07/08/20 Unknown ABG Methemoglobin 0.3 (0.0-1.5) 08/11/20 18:43 ABG Sodium 138.0 mmol/L (136.0-145.0) 08/11/20 18:43 ABG Potassium 3.4 mmol/L (3.40-4.50) 08/11/20 18:43 ABG Chloride 99.0 mmol/L (98-107) 08/11/20 18:43 ABG Glucose 149 mg/dL (65-95) H 08/11/20 18:43 Oxyhemoglobin 93.7 % (95.0-99.0) L 07/08/20 Unknown Carboxyhemoglobin 1.2 (0.5-1.5) 08/11/20 18:43 FiO2 50.0 08/11/20 18:43 Sodium 143 mmol/L (137-145) 08/22/20 05:11 Potassium 3.8 mmol/L (3.6-5.0) 08/23/20 04:39 Chloride 99.8 mmol/L (98-107) 08/22/20 05:11 Carbon Dioxide 31 mmol/L (22-30) H 08/22/20 05:11 Anion Gap 16 mmol/L 08/22/20 05:11 BUN 15 mg/dL (9-20) 08/22/20 05:11 Creatinine 0.6 mg/dL (0.8-1.3) L 08/22/20 05:11 Estimated GFR > 60 ml/min 08/22/20 05:11 BUN/Creatinine Ratio 25 % 08/22/20 05:11 Glucose 95 mg/dL (75-100) 08/22/20 05:11 POC Glucose 154 mg/dL (70-105) H 08/24/20 11:05 Lactic Acid 0.80 mmol/L (0.7-2.0) 07/13/20 15:45 Calcium 10.1 mg/dL (8.4-10.2) 08/22/20 05:11 Phosphorus 5.10 mg/dL (2.5-4.5) H 08/22/20 05:11 Magnesium 1.90 mg/dL (1.7-2.3) 08/23/20 04:39 Ferritin 1496.0 ng/mL (30.0-300.0) H 06/14/20 11:50 Total Bilirubin 0.30 mg/dL (0.1-1.2) 08/02/20 05:55 Direct Bilirubin 0.6 mg/dL (0-0.2) H 05/11/20 07:30 Indirect Bilirubin 0.9 mg/dL 05/11/20 07:30 AST 37 units/L (5-40) 08/02/20 05:55 ALT 118 units/L (7-56) H 08/02/20 05:55 Alkaline Phosphatase 88 units/L (35-129) 08/02/20 05:55 Lactate Dehydrogenase 705 units/L (91-180) H 05/20/20 08:16 Troponin T 0.015 ng/mL (0.00-0.029) 07/07/20 10:00 C-Reactive Protein 3.10 mg/dL (0.00-1.30) H 05/20/20 08:16 Total Protein 6.4 g/dL (6.3-8.2) 08/02/20 05:55 Albumin 3.3 g/dL (3.9-5) L 08/02/20 05:55 Albumin/Globulin Ratio 1.1 % 08/02/20 05:55 Triglycerides 452 mg/dL (2-149) H 06/30/20 07:00 Lipase 86 units/L (13-60) H 06/29/20 09:36 Procalcitonin 2.15 ng/mL (<0.15) 07/15/20 05:31 Arterial Blood Glucose 149 mg/dL (65-95) H 08/11/20 18:43 Arterial Blood Ionized Calcium 4.8 mg/dL (4.6-5.3) 08/11/20 18:43 Urine Color Fauzia (Yellow) 05/10/20 Unknown Urine Turbidity Clear (Clear) 05/10/20 Unknown Urine pH 5.0 (5.0-7.0) 05/10/20 Unknown Ur Specific [place] 1.019 (1.003-1.030) 05/10/20 Unknown Urine Protein 100 mg/dl mg/dL (Negative) 05/10/20 Unknown Urine Glucose (UA) Neg mg/dL (Negative) 05/10/20 Unknown Urine Ketones Neg mg/dL (Negative) 05/10/20 Unknown Urine Blood Lg (Negative) 05/10/20 Unknown Urine Nitrite Neg (Negative) 05/10/20 Unknown Urine Bilirubin Neg (Negative) 05/10/20 Unknown Urine Urobilinogen 2.0 mg/dL (<2.0) 05/10/20 Unknown Ur Leukocyte Esterase Neg (Negative) 05/10/20 Unknown Urine WBC (Auto) 11.0 /HPF (0.0-6.0) H 05/10/20 Unknown Urine RBC (Auto) 2.0 /HPF (0.0-6.0) 05/10/20 Unknown U Epithel Cells (Auto) 1.0 /HPF (0-13.0) 05/10/20 Unknown Urine Bacteria (Auto) 1+ /HPF (Negative) 05/10/20 Unknown Urine Mucus Few /HPF 05/10/20 Unknown Plasma/Serum Alcohol < 0.01 % (0-0.07) 05/09/20 14:20 Coronavirus (PCR) Negative (Negative) 08/06/20 09:36 Hepatitis A Ab Total Nonreactive (Nonreactive) 07/09/20 Unknown Hep B Core Total Ab Nonreactive (Nonreactive) 07/09/20 Unknown Hepatitis C RNA Quant See scanned result 07/09/20 Unknown SARS-CoV-2 IgG Ab Reactive (NonReactive) A 05/11/20 07:30 Blood Type B POSITIVE 06/21/20 14:18 Antibody Screen Negative 06/21/20 14:18 Crossmatch See Detail 06/21/20 14:18 - Diagnostic Impressions Diagnostic Impressions: Echocardiogram 05/20/20 13:02 Transthoracic Echocardiogram Indication: CHF BP: 97/73 Conclusions *The study quality is technically very difficult and limited. *The left ventricular chamber size, wall thickness and systolic function are within normal limits. There are no wall motion abnormalities observed. Ejection fraction is normal. *The estimated ejection fraction is 60-65%. *The pericardium appears normal. Findings Procedure Info: The study quality is technically difficult. Left Ventricle: The left ventricular chamber size, wall thickness and systolic function are within normal limits. There are no wall motion abnormalities observed. Ejection fraction is normal. The estimated ejection fraction is 60-65%. Abnormal left ventricular diastolic filling is observed, consistent with impaired relaxation. Left Atrium: The left atrium is normal in size with no visual thrombus identified. Right Ventricle: The right ventricle is not well visualized. Right Atrium: The right atrium is not well visualized. Aortic Valve: The aortic valve is trileaflet. The leaflets are thin with normal excursion. There is no aortic stenosis or regurgitation present. Mitral Valve: The mitral valve appears normal in structure and function. Tricuspid Valve: The tricuspid valve appears normal in structure and function. Unable to estimate the right ventricular systolic pressure. Pulmonic Valve: The pulmonic valve is not well visualized. There is no evidence of pulmonic regurgitation. There is no pulmonic stenosis. Pericardium: The pericardium appears normal. Pulmonary Artery: The main pulmonary artery is not well visualized. Venous: The inferior vena cava appears normal in size. Measurements Chambers 2D Name Value Normal Range IVSd (2D) 0.83 cm (0.6 - 1.1) LVPWd (2D) 0.83 cm (0.6 - 1.1) LVIDd (2D) 3.88 cm (3.7 - 5.6) LVIDs (2D) 2.46 cm (2 - 3.8) LV FS (2D) 36.52 % - EF Teichholz (2D) 66.97 % - Ao root diameter (2D) 3.47 cm (2 - 3.7) Volumes/Mass Name Value Normal Range LA ESV SP 4CH (A/L) 22.4 ml - LA ESV SP 2CH (A/L) 22.89 ml - LA ESV BP (A/L) 23.06 ml - LA ESV SP 4CH (MOD) 21.09 ml - LA ESV SP 2CH (MOD) 22.44 ml - Diastolic/Systolic Function Name Value Normal Range MV E-wave Vmax 0.48 m/sec - MV deceleration time 156.3 msec - MV A-wave Vmax 0.59 m/sec - MV E:A ratio 0.81 ratio - Aortic Valve Name Value Normal Range AV Vmax 0.97 m/sec - AV VTI 14.49 cm - AV peak gradient 3.73 mmHg - AV mean gradient 1.89 mmHg - LVOT diameter 2.09 cm - LVOT Vmax 0.72 m/sec - LVOT VTI 10.21 cm - LVOT peak gradient 2.05 mmHg - LVOT mean gradient 1.03 mmHg - SV LVOT 35.17 ml - INNA (continuity Vmax) 2.55 cm2 - INNA (continuity VTI) 2.43 cm2 - Tricuspid Valve Name Value Normal Range TV E-wave Vmax 0.37 m/sec - Pulmonic Valve/Qp:Qs Name Value Normal Range PV Vmax 0.72 m/sec - PV peak gradient 2.06 mmHg - RVOT Vmax 0.85 m/sec - RVOT VTI 9.89 cm - RVOT peak gradient 2.9 mmHg - PV acceleration time 72.31 msec - Cantor/IV: Voiding Method Bedpan IV Catheter Type [Right Wrist] INT / Saline Lock IV Catheter Type [Right Upper Peripheral IV arm] IV Catheter Type [Right CVL Internal Jugular] IV Catheter Type [Right Peripheral IV Forearm] IV Catheter Type [Left Forearm INT / Saline Lock ] IV Catheter Type [Left Wrist] INT / Saline Lock IV Catheter Type [Right Hand] INT / Saline Lock IV Catheter Type [Left Hand] INT / Saline Lock IV Catheter Type [Left Peripheral IV Antecubital] Active Medications - Current Medications Current Medications: Generic Name Dose Route Start Last Admin Trade Name Freq PRN Reason Stop Dose Admin Acetaminophen 650 mg 08/07/20 10:06 08/23/20 22:37 Acetaminophen 325 Mg Tab PO 650 mg Q4H PRN Administration Pain, Mild (1-3) Bisacodyl 10 mg 07/14/20 11:00 Bisacodyl 10 Mg Rect Supp IL BID PRN Laxative Effect Enoxaparin Sodium 40 mg 07/29/20 22:00 08/23/20 22:38 Enoxaparin 40 Mg/0.4 Ml Inj SUB-Q 40 mg QDAY@2200 DESIRE Administration Protocol Folic Acid 1 mg 05/09/20 15:36 08/24/20 09:51 Folic Acid 1 Mg Tab PO 1 mg QDAY DESIRE Administration Guaifenesin 600 mg 07/19/20 23:00 08/24/20 09:51 Guaifenesin Er 600 Mg Tab PO 600 mg BID DESIRE Administration Hydrophilic Ointment 1 applic 05/21/20 20:33 Lip Therapy Vaseline TP Q2HR PRN Dry Lips Insulin Human Lispro 0 unit 07/31/20 07:30 08/24/20 11:30 Insulin Lispro 100 Unit/Ml SUB-Q 3 unit ACHS DESIRE Administration Protocol Lansoprazole 30 mg 06/28/20 10:00 08/24/20 09:51 Lansoprazole 30 Mg Solutab FEEDTUBE 30 mg QDAY DESRIE Administration Metoprolol Tartrate 5 mg 07/02/20 17:17 08/23/20 13:57 Metoprolol Tartrate 5 Mg/5 Ml Inj IV 5 mg Q6HR PRN Administration Tachyarrhythmias Metoprolol Tartrate 25 mg 08/12/20 12:00 08/24/20 09:51 Metoprolol Tartrate 25 Mg Tab PO 25 mg BID DESIRE Administration Multi-Ingred Cream/Lotion/Oil/Oint 1 applic 05/21/20 20:33 Mineral Oil/Petrolatum, White Ophth Oint 3.5 Gm OU Q4HR PRN Dry Eye(s) Olanzapine 5 mg 07/17/20 22:00 08/23/20 22:38 Olanzapine 5 Mg Tab PO 5 mg QHS DESIRE Administration Ondansetron HCl 4 mg 08/23/20 13:10 Ondansetron 4 Mg/2 Ml Inj IV Q4H PRN Nausea And Vomiting Phenobarbital 32.4 mg 07/04/20 22:00 08/24/20 09:51 Phenobarbital 32.4 Mg Tab PO 32.4 mg BID DESIRE Administration Pseudoephedrine/Acetam/Chlorphenir 10 ml 08/18/20 15:45 08/23/20 22:37 Guaifenesin/Codeine 100-10mg Oral Liqd 5 Ml PO 10 ml Q4H PRN Administration Cough Quetiapine Fumarate 200 mg 07/16/20 10:00 08/24/20 09:51 Quetiapine 200 Mg Tab PO 200 mg QAM DESIRE Administration Senna 17.2 mg 07/14/20 11:00 08/03/20 16:46 Sennosides 8.6 Mg Tab PO 8.6 mg BID PRN Administration Laxative Effect Nutrition/Malnutrition Assess - Dietary Evaluation Nutrition/Malnutrition Findings: Nutrition Notes Start: 05/17/20 14:10 Freq: Status: Active Protocol: Document 08/18/20 12:39 CW (Rec: 08/18/20 12:53 CW [id number]) Nutrition Notes Initial or Follow up Reassessment Current Diagnosis Acute Kidney Injury,Decubitus( Pressure Ulcer),Sepsis, Respiratory Failure Other Pertinent Diagnosis Bilat pneu, COVID-19 (-), Colonic pseudoobstuction, EtOH dependence Current Diet Regular diet Labs/Tests Reviewed Pertinent Medications Reviewed Height 6 ft Weight 99.5 kg Usual Body Weight 118 kg [place] Body Weight (kg) 80.90 BMI 29.7 Weight change and time frame Weight gain noted Weight Status Overweight Subjective/Other Information F/u for intakes, Sammy and ONS tolerance. Pt reports consuming 100% of meals and ONS. R/O good appetite. Pt denies N/V/D/C. Percent of energy/protein needs met: 100%/100% Burn Absent Trauma Absent GI Symptoms None Current % PO Good (75-100%) Minimum of two criteria Yes Interpretation of Weight Loss (severe) >5% in 1 month Muscle Mass Mild Depletion (non-severe) #3 Nutrition Diagnosis Malnutrition Diagnosis Progress(for reassessment Continues documentation) #2 Nutrition Diagnosis Increased nutrient needs ( specify in comment below) Diagnosis Progress(for reassessment Continues documentation) Is patient on ventilator? No Is Patient Ambulatory and/or Out of Bed No REE-([place] Jeor-confined to bed) 2269.308 Kcal/Kg value to use for calculation 21 Approximate Energy Requirements Using 0 kcal/Kg Calculation Used for Recommendations Kcal/kg Additional Notes Protein: 108-135 g (1.2-1.5 g/ kg AdBW 90 kg) Fluid: 1ml/kcal Nutrition Intervention Change Diet Order: Continue diet Add Supplement/Snack (indicate name/kcal Ensure High Protein daily /protein ) Sammy BID Provides kCal: 350 Provides Protein (gm) 21 Goal #1 Meet at least 75% protein and energy needs via PO Goal #2 ONS tolerance Goal #3 Intake of Sammy BID Anticipated Discharge Needs: Regular dier, Sammy BID and Ensure High Protein until wound healed Follow-Up By: 08/25/20 Additional Comments F/u stable intakes, ONS and Sammy tolerance/intake
[2020-08-24] MEDS: ENOXAPARIN 40 MG/0.4 ML INJ SUB-Q SCH (22:12)
[2020-08-25] MEDS: INSULIN LISPRO 100 UNIT/ML SUB-Q SCH ×4 (08:23→23:04)
[2020-08-25] MEDS: PHENobarbital 32.4 MG TAB PO SCH ×2 (10:13→23:04)
[2020-08-25] MEDS: guaiFENesin ER 600 MG TAB PO SCH ×2 (10:13→23:03)
[2020-08-25] MEDS: FOLIC ACID 1 MG TAB PO SCH (10:13)
[2020-08-25] MEDS: QUEtiapine 200 MG TAB PO SCH (10:13)
[2020-08-25] MEDS: METOPROLOL TARTRATE 25 MG TAB PO SCH ×2 (10:13→23:03)
[2020-08-25] MEDS: LANSOPRAZOLE 30 MG SOLUTAB FEEDTUBE SCH (10:13)
--- NOTE | 2020-08-25 10:25 | Progress Note ---
Assessment and Plan Assessment and plan: Positive COVID-19 test; 05/10/2020 Negative COVID-19 test; 06/30/2020 --Hypokalemia; replenish with KCl --Acute hypoxemic resp failure; oxygen dependent on 2 L NC, today ,requiring intermittent BiPAP Due to COVID-19 pneumonia --Persistent sinus tachycardia: Multifactorial We will closely monitor --Severe COVID-19 bilateral pneumonia Coronavirus protocol: Completed steroids and remdesivir therapy, isolation precautions, Received management per COVID-19 protocol --Pneumothorax status post right chest tube Chest tube removed 07/23/2020 Post removal chest x-ray no pneumothorax Patient is requiring 3 to 4 L nasal cannula And intermittent BiPAP --Elevated D-dimers; Patient had CTA chest ; negative for PE, Lower extremity venous Doppler negative for DVT --Pseudomonas bacteremia; ID following, completed cefepime --Severe sepsis/septic shock, monitor off pressors Completed cefepime, monitor off antibiotics -- Acute kidney injury (SEN) , likely vasomotor nephropathy Resolved, avoid nephrotoxins --Acute on chronic anemia Guaiac test positive, GI evaluated the patient Patient H&H is normal range -- Elevated liver function tests; resolved LFTs within normal limits --Colonic distention GI evaluated colonic distention resolved recommend stool softeners -- DVT prophylaxis On Lovenox CTA chest negative for PE,LE DVT negative, therapeutic Lovenox DC'd Changed to prophylactic Lovenox Patient is medically stable for discharge Disposition; insurance did not approve IRU Possible subacute rehab placement DC planning per case management Plan of care reviewed with the patient and his nurse Brief history: 50 YO Male with Obesity, ETOH Dependence presents to ED for evaluation. Patient states that he has experienced shortness of breath, generalized weakness, fatigue, malaise, body aches, decreased exercise tolerance over the past 5 days with persistently worsening symptoms over the same timeframe. EMS was notified and upon arrival the patient was found to be in distress with a pulse oximetry of 76% on room air as well as fever to 103 F. Patient was placed on supplemental oxygen and subsequently transported to [facility] for further care and evaluation. Patient seen and evaluated in the emergency department. All lab and imaging studies reviewed. Patient underwent chest x-ray and was found to have bilateral pneumonia. Patient also found to have a pulse oximetry of 86% on 4 L nasal cannula. Patient initiated on a high flow submental oxygen with improvement of pulse oximetry. Patient admitted to medical floor and initiated on pneumonia protocol as well as COVID-19 protocol. Patient also found to have acute kidney injury as well as elevated liver function test suspected secondary to alcohol dependence. Patient reports being diagnosed with coronavirus 2 days ago. No prior admission for review. 07/23/2020; patient remains on high flow oxygen, wean oxygen as tolerated, severe hypokalemia Replenish per protocol monitor levels 07/24/2020; patient had chest tube removal yesterday 07/23/2019 and, post removal chest x-ray no pneumothorax no acute abnormalities Patient feels slightly better continues to require high flow oxygen Wean as tolerated, physical and occupational therapy, DC planning 07/26/2020; patient on 3 L nasal cannula oxygen, patient feels better 07/27/2020; patient was saturating well on 3 L of nasal cannula oxygen, however today patient is on high flow oxygen 15 L Complains of some congestion, wean oxygen levels to 3-5 as tolerated Discharge planning LTAC has refused patient,Possible home with home health versus placement when medically stable 07/28/2020; continue to wean oxygen, patient is on 10 L, awaiting placement 07/29/2020; continues to be on 10 L nasal cannula oxygen, wean as tolerated Patient is on empiric therapeutic dose Lovenox, due to elevated D-dimers Patient is stable for CTA chest today, follow the report and adjust Lovenox as needed DC planning per case management, with pending placement 07/30/2020; patient feels slightly better, oxygen reduced to 8 L of nasal cannula Will check PT OT, pending placement 07/31/2020 :Patient on 8 L of nasal cannula oxygen 08/03/2020; patient's oxygen requirement has come down to 3-4 and half liters nasal cannula Will try to wean oxygen as tolerated, respiratory therapist assisting to reach the goal Possible discharge home in 1 to 2 days if stable Plan of care reviewed with the patient and his nurse 08/04/2020; patient is requiring 3 to 4 L nasal cannula oxygen, case management to set up home oxygen Patient is hemodynamically and clinically stable for discharge, pending placement [facility] And of care reviewed with the patient and his nurse as well as the case management 08/05/2020 ; COVID-19 test requested , patient is hemodynamically and clinically stable for discharge Patient is requiring 4 L of nasal cannula oxygen . medically stable for discharge 08/06/2020; patient is hemodynamically and clinically stable for discharge and transfer to IRU unit today Pre-discharge COVID-19 test is negative, pending insurance authorization 08/07/20; patient is accepted by inpatient rehab unit for admission, pending in surance authorization Stable for discharge 08/08/2020; patient is stable for discharge to inpatient rehab unit, pending insurance approval 08/09/2020; manager store reports that insurance has not approved inpatient rehab placement for this patient Will evaluate for home oxygen, set up home oxygen if eligible, and plan discharge home with home health when patient is hemodynamically stable 08/10/2020; patient continues to have persistent tachycardia, and persistent hypoxia requiring 4 L of nasal cannula oxygen As well as intermittent BiPAP, continue current management 08/11/2020; patient continues to require oxygen and intermittent BiPAP, awaiting IRU placement Versus home with home health and home oxygen, DC planning per case management 08/12/2020; awaiting IRU placement versus home with home health on home oxygen 08/14/2020-08/18/2020; patient continues to require 4 L of nasal cannula oxygen Discharge planning is in process, PT recommend acute inpatient rehab, awaiting insurance approval CM reports insurance denied inpatient rehab placement option 08/19/2020; I spoke with insurance physician Dr. Lopez, P2P and discussed patient's condition and the need for inpatient rehab However Dr. Macias reports that PT/OT evaluation and documentation do not reflect that patient can complete 3 hours of acute therapy in acute rehab. It reflects that he can hardly walk few steps/few feet. Advised to reevaluate if he meets the above requirements. Dr. Macias also reports that she can approve for subacute rehab placement. --08/20/2020 ;patient awaiting placement, inpatient rehab versus subacute versus home health DC planning per case management 08/21/2020; pending subacute rehab placement 08/22/2020; on 2 L nasal cannula oxygen, awaiting placement 08/23/2020; awaiting placement/insurance authorization 08/24/2020; awaiting placement, insurance authorization 08/25/2020; patient is stable on 2 L of nasal cannula oxygen, complains of generalized weakness, awaiting subacute/SNF placement Pending insurance authorization History Interval history: I have seen and examined the patient at the bedside Patient is requiring 3 L of nasal cannula oxygen No new complaints Vital signs reviewed Hospitalist Physical - Constitutional Vitals: Temp Pulse Resp BP Pulse Ox 98.6 F 99 H 18 106/62 95 08/25/20 07:35 08/25/20 04:30 08/25/20 07:35 08/25/20 07:35 08/25/20 08:33 General appearance: Present: no acute distress, well-nourished - EENT Eyes: Present: PERRL, EOM intact - Neck Neck: Present: supple, normal ROM - Respiratory Respiratory effort: normal Respiratory: bilateral: diminished, negative: rales, rhonchi, wheezing - Cardiovascular Rhythm: regular Heart Sounds: Present: S1 & S2 - Extremities Extremities: no ischemia, No edema - Abdominal General gastrointestinal: soft, non-tender, non-distended, normal bowel sounds - Integumentary Integumentary: Present: clear, warm - Psychiatric Psychiatric: appropriate mood/affect, cooperative - Neurologic Neurologic: CNII-XII intact, moves all extremities HEART Score - HEART Score Troponin: Troponin T 0.015 ng/mL (0.00-0.029) 07/07/20 10:00 Results - Labs CBC & Chem 7: 08/22/20 05:11 08/23/20 04:39 Labs: Laboratory Last Values WBC 10.6 K/mm3 (4.5-11.0) 08/22/20 05:11 RBC 4.13 M/mm3 (3.65-5.03) 08/22/20 05:11 Hgb 12.9 gm/dl (11.8-15.2) 08/22/20 05:11 Hct 39.1 % (35.5-45.6) 08/22/20 05:11 MCV 95 fl (84-94) H 08/22/20 05:11 MCH 31 pg (28-32) 08/22/20 05:11 MCHC 33 % (32-34) 08/22/20 05:11 RDW 16.4 % (13.2-15.2) H 08/22/20 05:11 Plt Count 331 K/mm3 (140-440) 08/22/20 05:11 Lymph % (Auto) 18.6 % (13.4-35.0) 08/22/20 05:11 [place] % (Auto) 9.7 % (0.0-7.3) H 08/22/20 05:11 Eos % (Auto) 3.4 % (0.0-4.3) 08/22/20 05:11 Baso % (Auto) 0.5 % (0.0-1.8) 08/22/20 05:11 Lymph # (Auto) 2.0 K/mm3 (1.2-5.4) 08/22/20 05:11 [place] # (Auto) 1.0 K/mm3 (0.0-0.8) H 08/22/20 05:11 Eos # (Auto) 0.4 K/mm3 (0.0-0.4) 08/22/20 05:11 Baso # (Auto) 0.0 K/mm3 (0.0-0.1) 08/22/20 05:11 Add Manual Diff Complete 07/13/20 08:31 Total Counted 100 07/13/20 08:31 Seg Neutrophils % 67.8 % (40.0-70.0) 08/22/20 05:11 Seg Neuts % (Manual) 96.0 % (40.0-70.0) H 07/13/20 08:31 Band Neutrophils % 0 % 07/13/20 08:31 Lymphocytes % (Manual) 2.0 % (13.4-35.0) L 07/13/20 08:31 Reactive Lymphs % (Man) 0 % 07/13/20 08:31 Monocytes % (Manual) 2.0 % (0.0-7.3) 07/13/20 08:31 Eosinophils % (Manual) 0 % (0.0-4.3) 07/13/20 08:31 Basophils % (Manual) 0 % (0.0-1.8) 07/13/20 08:31 Metamyelocytes % 0 % 07/13/20 08:31 Myelocytes % 0 % 07/13/20 08:31 Promyelocytes % 0 % 07/13/20 08:31 Blast Cells % 0 % 07/13/20 08:31 Nucleated RBC % Not Reportable 07/13/20 08:31 Seg Neutrophils # 7.2 K/mm3 (1.8-7.7) 08/22/20 05:11 Seg Neutrophils # Man 20.4 K/mm3 (1.8-7.7) H 07/13/20 08:31 Band Neutrophils # 0.0 K/mm3 07/13/20 08:31 Lymphocytes # (Manual) 0.4 K/mm3 (1.2-5.4) L 07/13/20 08:31 Abs React Lymphs (Man) 0.0 K/mm3 07/13/20 08:31 Monocytes # (Manual) 0.4 K/mm3 (0.0-0.8) 07/13/20 08:31 Eosinophils # (Manual) 0.0 K/mm3 (0.0-0.4) 07/13/20 08:31 Basophils # (Manual) 0.0 K/mm3 (0.0-0.1) 07/13/20 08:31 Metamyelocytes # 0.0 K/mm3 07/13/20 08:31 Myelocytes # 0.0 K/mm3 07/13/20 08:31 Promyelocytes # 0.0 K/mm3 07/13/20 08:31 Blast Cells # 0.0 K/mm3 07/13/20 08:31 WBC Morphology Not Reportable 07/13/20 08:31 Hypersegmented Neuts Not Reportable 07/13/20 08:31 Hyposegmented Neuts Not Reportable 07/13/20 08:31 Hypogranular Neuts Not Reportable 07/13/20 08:31 Smudge Cells Not Reportable 07/13/20 08:31 Toxic Granulation Not Reportable 07/13/20 08:31 Toxic Vacuolation Not Reportable 07/13/20 08:31 Dohle Bodies Not Reportable 07/13/20 08:31 Pelger-Huet Anomaly Not Reportable 07/13/20 08:31 Jason Rods Not Reportable 07/13/20 08:31 Platelet Estimate Consistent w auto 07/13/20 08:31 Clumped Platelets Not Reportable 07/13/20 08:31 Plt Clumps, EDTA Not Reportable 07/13/20 08:31 Large Platelets Not Reportable 07/13/20 08:31 Giant Platelets Not Reportable 07/13/20 08:31 Platelet Satelliting Not Reportable 07/13/20 08:31 Plt Morphology Comment Not Reportable 07/13/20 08:31 RBC Morphology Not Reportable 07/13/20 08:31 Dimorphic RBCs Not Reportable 07/13/20 08:31 Polychromasia Not Reportable 07/13/20 08:31 Hypochromasia Not Reportable 07/13/20 08:31 Poikilocytosis Not Reportable 07/13/20 08:31 Anisocytosis Not Reportable 07/13/20 08:31 Microcytosis Not Reportable 07/13/20 08:31 Macrocytosis Not Reportable 07/13/20 08:31 Spherocytes Not Reportable 07/13/20 08:31 Pappenheimer Bodies Not Reportable 07/13/20 08:31 Sickle Cells Not Reportable 07/13/20 08:31 Target Cells Not Reportable 07/13/20 08:31 Tear Drop Cells Not Reportable 07/13/20 08:31 Ovalocytes Not Reportable 07/13/20 08:31 Stomatocytes Few 07/13/20 08:31 Helmet Cells Not Reportable 07/13/20 08:31 [place] Bodies Not Reportable 07/13/20 08:31 [place] Rings Not Reportable 07/13/20 08:31 [place] Cells Not Reportable 07/13/20 08:31 Bite Cells Not Reportable 07/13/20 08:31 Crenated Cell Not Reportable 07/13/20 08:31 Elliptocytes Not Reportable 07/13/20 08:31 Acanthocytes (Spur) Not Reportable 07/13/20 08:31 Rouleaux Not Reportable 07/13/20 08:31 Hemoglobin C Crystals Not Reportable 07/13/20 08:31 Schistocytes Not Reportable 07/13/20 08:31 Malaria parasites Not Reportable 07/13/20 08:31 Josue Bodies Not Reportable 07/13/20 08:31 Hem Pathologist Commnt No 07/13/20 08:31 PT 11.8 Sec. (12.2-14.9) L 06/22/20 14:29 INR 0.88 (0.87-1.13) 06/22/20 14:29 APTT 23.5 Sec. (24.2-36.6) L 06/22/20 14:29 D-Dimer 1887.82 ng/mlDDU (0-234) H 05/20/20 08:16 Heparin Anti-Xa Level 0.37 U.I./ml (0.3-0.7) 07/02/20 16:08 ABG pH 7.437 (7.320-7.450) 08/11/20 18:43 POC ABG pCO2 51.0 mmHg (32.0-48.0) H 08/11/20 18:43 ABG pCO2 53.1 mm Hg 07/08/20 Unknown POC ABG pO2 84.9 mmHg (83-108) 08/11/20 18:43 ABG pO2 75.3 mm Hg (80.0-90.0) L 07/08/20 Unknown POC ABG HCO3 33.6 08/11/20 18:43 ABG HCO3 34.3 mmol/L (20.0-26.0) H 07/08/20 Unknown ABG O2 Saturation 96.5 % (95.0-99.0) 07/08/20 Unknown ABG O2 Content 13.5 (0.0-44) 07/08/20 Unknown POC ABG Base Excess 7.9 08/11/20 18:43 ABG Base Excess 8.7 mmol/L (-2.0-3.0) H 07/08/20 Unknown ABG Hemoglobin 13.8 (12.0-17.5) 08/11/20 18:43 ABG Oxyhemoglobin 94.6 (94-98) 08/11/20 18:43 ABG Carboxyhemoglobin 2.4 % (0.0-5.0) 07/08/20 Unknown ABG Methemoglobin 0.3 (0.0-1.5) 08/11/20 18:43 ABG Sodium 138.0 mmol/L (136.0-145.0) 08/11/20 18:43 ABG Potassium 3.4 mmol/L (3.40-4.50) 08/11/20 18:43 ABG Chloride 99.0 mmol/L (98-107) 08/11/20 18:43 ABG Glucose 149 mg/dL (65-95) H 08/11/20 18:43 Oxyhemoglobin 93.7 % (95.0-99.0) L 07/08/20 Unknown Carboxyhemoglobin 1.2 (0.5-1.5) 08/11/20 18:43 FiO2 50.0 08/11/20 18:43 Sodium 143 mmol/L (137-145) 08/22/20 05:11 Potassium 3.8 mmol/L (3.6-5.0) 08/23/20 04:39 Chloride 99.8 mmol/L (98-107) 08/22/20 05:11 Carbon Dioxide 31 mmol/L (22-30) H 08/22/20 05:11 Anion Gap 16 mmol/L 08/22/20 05:11 BUN 15 mg/dL (9-20) 08/22/20 05:11 Creatinine 0.6 mg/dL (0.8-1.3) L 08/22/20 05:11 Estimated GFR > 60 ml/min 08/22/20 05:11 BUN/Creatinine Ratio 25 % 08/22/20 05:11 Glucose 95 mg/dL (75-100) 08/22/20 05:11 POC Glucose 89 mg/dL (70-105) 08/25/20 07:34 Lactic Acid 0.80 mmol/L (0.7-2.0) 07/13/20 15:45 Calcium 10.1 mg/dL (8.4-10.2) 08/22/20 05:11 Phosphorus 5.10 mg/dL (2.5-4.5) H 08/22/20 05:11 Magnesium 1.90 mg/dL (1.7-2.3) 08/23/20 04:39 Ferritin 1496.0 ng/mL (30.0-300.0) H 06/14/20 11:50 Total Bilirubin 0.30 mg/dL (0.1-1.2) 08/02/20 05:55 Direct Bilirubin 0.6 mg/dL (0-0.2) H 05/11/20 07:30 Indirect Bilirubin 0.9 mg/dL 05/11/20 07:30 AST 37 units/L (5-40) 08/02/20 05:55 ALT 118 units/L (7-56) H 08/02/20 05:55 Alkaline Phosphatase 88 units/L (35-129) 08/02/20 05:55 Lactate Dehydrogenase 705 units/L (91-180) H 05/20/20 08:16 Troponin T 0.015 ng/mL (0.00-0.029) 07/07/20 10:00 C-Reactive Protein 3.10 mg/dL (0.00-1.30) H 05/20/20 08:16 Total Protein 6.4 g/dL (6.3-8.2) 08/02/20 05:55 Albumin 3.3 g/dL (3.9-5) L 08/02/20 05:55 Albumin/Globulin Ratio 1.1 % 08/02/20 05:55 Triglycerides 452 mg/dL (2-149) H 06/30/20 07:00 Lipase 86 units/L (13-60) H 06/29/20 09:36 Procalcitonin 2.15 ng/mL (<0.15) 07/15/20 05:31 Arterial Blood Glucose 149 mg/dL (65-95) H 08/11/20 18:43 Arterial Blood Ionized Calcium 4.8 mg/dL (4.6-5.3) 08/11/20 18:43 Urine Color Fauzia (Yellow) 05/10/20 Unknown Urine Turbidity Clear (Clear) 05/10/20 Unknown Urine pH 5.0 (5.0-7.0) 05/10/20 Unknown Ur Specific [place] 1.019 (1.003-1.030) 05/10/20 Unknown Urine Protein 100 mg/dl mg/dL (Negative) 05/10/20 Unknown Urine Glucose (UA) Neg mg/dL (Negative) 05/10/20 Unknown Urine Ketones Neg mg/dL (Negative) 05/10/20 Unknown Urine Blood Lg (Negative) 05/10/20 Unknown Urine Nitrite Neg (Negative) 05/10/20 Unknown Urine Bilirubin Neg (Negative) 05/10/20 Unknown Urine Urobilinogen 2.0 mg/dL (<2.0) 05/10/20 Unknown Ur Leukocyte Esterase Neg (Negative) 05/10/20 Unknown Urine WBC (Auto) 11.0 /HPF (0.0-6.0) H 05/10/20 Unknown Urine RBC (Auto) 2.0 /HPF (0.0-6.0) 05/10/20 Unknown U Epithel Cells (Auto) 1.0 /HPF (0-13.0) 05/10/20 Unknown Urine Bacteria (Auto) 1+ /HPF (Negative) 05/10/20 Unknown Urine Mucus Few /HPF 05/10/20 Unknown Plasma/Serum Alcohol < 0.01 % (0-0.07) 05/09/20 14:20 Coronavirus (PCR) Negative (Negative) 08/06/20 09:36 Hepatitis A Ab Total Nonreactive (Nonreactive) 07/09/20 Unknown Hep B Core Total Ab Nonreactive (Nonreactive) 07/09/20 Unknown Hepatitis C RNA Quant See scanned result 07/09/20 Unknown SARS-CoV-2 IgG Ab Reactive (NonReactive) A 05/11/20 07:30 Blood Type B POSITIVE 06/21/20 14:18 Antibody Screen Negative 06/21/20 14:18 Crossmatch See Detail 06/21/20 14:18 - Diagnostic Impressions Diagnostic Impressions: Echocardiogram 05/20/20 13:02 Transthoracic Echocardiogram Indication: CHF BP: 97/73 Conclusions *The study quality is technically very difficult and limited. *The left ventricular chamber size, wall thickness and systolic function are within normal limits. There are no wall motion abnormalities observed. Ejection fraction is normal. *The estimated ejection fraction is 60-65%. *The pericardium appears normal. Findings Procedure Info: The study quality is technically difficult. Left Ventricle: The left ventricular chamber size, wall thickness and systolic function are within normal limits. There are no wall motion abnormalities observed. Ejection fraction is normal. The estimated ejection fraction is 60-65%. Abnormal left ventricular diastolic filling is observed, consistent with impaired relaxation. Left Atrium: The left atrium is normal in size with no visual thrombus identified. Right Ventricle: The right ventricle is not well visualized. Right Atrium: The right atrium is not well visualized. Aortic Valve: The aortic valve is trileaflet. The leaflets are thin with normal excursion. There is no aortic stenosis or regurgitation present. Mitral Valve: The mitral valve appears normal in structure and function. Tricuspid Valve: The tricuspid valve appears normal in structure and function. Unable to estimate the right ventricular systolic pressure. Pulmonic Valve: The pulmonic valve is not well visualized. There is no evidence of pulmonic regurgitation. There is no pulmonic stenosis. Pericardium: The pericardium appears normal. Pulmonary Artery: The main pulmonary artery is not well visualized. Venous: The inferior vena cava appears normal in size. Measurements Chambers 2D Name Value Normal Range IVSd (2D) 0.83 cm (0.6 - 1.1) LVPWd (2D) 0.83 cm (0.6 - 1.1) LVIDd (2D) 3.88 cm (3.7 - 5.6) LVIDs (2D) 2.46 cm (2 - 3.8) LV FS (2D) 36.52 % - EF Teichholz (2D) 66.97 % - Ao root diameter (2D) 3.47 cm (2 - 3.7) Volumes/Mass Name Value Normal Range LA ESV SP 4CH (A/L) 22.4 ml - LA ESV SP 2CH (A/L) 22.89 ml - LA ESV BP (A/L) 23.06 ml - LA ESV SP 4CH (MOD) 21.09 ml - LA ESV SP 2CH (MOD) 22.44 ml - Diastolic/Systolic Function Name Value Normal Range MV E-wave Vmax 0.48 m/sec - MV deceleration time 156.3 msec - MV A-wave Vmax 0.59 m/sec - MV E:A ratio 0.81 ratio - Aortic Valve Name Value Normal Range AV Vmax 0.97 m/sec - AV VTI 14.49 cm - AV peak gradient 3.73 mmHg - AV mean gradient 1.89 mmHg - LVOT diameter 2.09 cm - LVOT Vmax 0.72 m/sec - LVOT VTI 10.21 cm - LVOT peak gradient 2.05 mmHg - LVOT mean gradient 1.03 mmHg - SV LVOT 35.17 ml - INNA (continuity Vmax) 2.55 cm2 - INNA (continuity VTI) 2.43 cm2 - Tricuspid Valve Name Value Normal Range TV E-wave Vmax 0.37 m/sec - Pulmonic Valve/Qp:Qs Name Value Normal Range PV Vmax 0.72 m/sec - PV peak gradient 2.06 mmHg - RVOT Vmax 0.85 m/sec - RVOT VTI 9.89 cm - RVOT peak gradient 2.9 mmHg - PV acceleration time 72.31 msec - Cantor/IV: Voiding Method Urinal IV Catheter Type [Right Wrist] INT / Saline Lock IV Catheter Type [Right Upper Peripheral IV arm] IV Catheter Type [Right CVL Internal Jugular] IV Catheter Type [Right Peripheral IV Forearm] IV Catheter Type [Left Forearm INT / Saline Lock ] IV Catheter Type [Left Wrist] INT / Saline Lock IV Catheter Type [Right Hand] INT / Saline Lock IV Catheter Type [Left Hand] INT / Saline Lock IV Catheter Type [Left Peripheral IV Antecubital] Active Medications - Current Medications Current Medications: Generic Name Dose Route Start Last Admin Trade Name Freq PRN Reason Stop Dose Admin Acetaminophen 650 mg 08/07/20 10:06 08/23/20 22:37 Acetaminophen 325 Mg Tab PO 650 mg Q4H PRN Administration Pain, Mild (1-3) Bisacodyl 10 mg 07/14/20 11:00 Bisacodyl 10 Mg Rect Supp MA BID PRN Laxative Effect Enoxaparin Sodium 40 mg 07/29/20 22:00 08/24/20 22:12 Enoxaparin 40 Mg/0.4 Ml Inj SUB-Q 40 mg QDAY@2200 DESIRE Administration Protocol Folic Acid 1 mg 05/09/20 15:36 08/25/20 10:13 Folic Acid 1 Mg Tab PO 1 mg QDAY DESIRE Administration Guaifenesin 600 mg 07/19/20 23:00 08/25/20 10:13 Guaifenesin Er 600 Mg Tab PO 600 mg BID DESIRE Administration Hydrophilic Ointment 1 applic 05/21/20 20:33 Lip Therapy Vaseline TP Q2HR PRN Dry Lips Insulin Human Lispro 0 unit 07/31/20 07:30 08/25/20 08:23 Insulin Lispro 100 Unit/Ml SUB-Q Not Given ACHS [facility] Protocol Lansoprazole 30 mg 06/28/20 10:00 08/25/20 10:13 Lansoprazole 30 Mg Solutab FEEDTUBE 30 mg QDAY DESIRE Administration Metoprolol Tartrate 5 mg 07/02/20 17:17 08/23/20 13:57 Metoprolol Tartrate 5 Mg/5 Ml Inj IV 5 mg Q6HR PRN Administration Tachyarrhythmias Metoprolol Tartrate 25 mg 08/12/20 12:00 08/25/20 10:13 Metoprolol Tartrate 25 Mg Tab PO 25 mg BID DESIRE Administration Multi-Ingred Cream/Lotion/Oil/Oint 1 applic 05/21/20 20:33 Mineral Oil/Petrolatum, White Ophth Oint 3.5 Gm OU Q4HR PRN Dry Eye(s) Olanzapine 5 mg 07/17/20 22:00 08/24/20 22:12 Olanzapine 5 Mg Tab PO 5 mg QHS DESIRE Administration Ondansetron HCl 4 mg 08/23/20 13:10 Ondansetron 4 Mg/2 Ml Inj IV Q4H PRN Nausea And Vomiting Phenobarbital 32.4 mg 07/04/20 22:00 08/25/20 10:13 Phenobarbital 32.4 Mg Tab PO 32.4 mg BID DESIRE Administration Pseudoephedrine/Acetam/Chlorphenir 10 ml 08/18/20 15:45 08/23/20 22:37 Guaifenesin/Codeine 100-10mg Oral Liqd 5 Ml PO 10 ml Q4H PRN Administration Cough Quetiapine Fumarate 200 mg 07/16/20 10:00 08/25/20 10:13 Quetiapine 200 Mg Tab PO 200 mg QAM DESIRE Administration Senna 17.2 mg 07/14/20 11:00 08/03/20 16:46 Sennosides 8.6 Mg Tab PO 8.6 mg BID PRN Administration Laxative Effect Nutrition/Malnutrition Assess - Dietary Evaluation Nutrition/Malnutrition Findings: Nutrition Notes Start: 05/17/20 14:10 Freq: Status: Active Protocol: Document 08/18/20 12:39 CW (Rec: 08/18/20 12:53 CW [id number]) Nutrition Notes Initial or Follow up Reassessment Current Diagnosis Acute Kidney Injury,Decubitus( Pressure Ulcer),Sepsis, Respiratory Failure Other Pertinent Diagnosis Bilat pneu, COVID-19 (-), Colonic pseudoobstuction, EtOH dependence Current Diet Regular diet Labs/Tests Reviewed Pertinent Medications Reviewed Height 6 ft Weight 99.5 kg Usual Body Weight 118 kg Nelson Body Weight (kg) 80.90 BMI 29.7 Weight change and time frame Weight gain noted Weight Status Overweight Subjective/Other Information F/u for intakes, Sammy and ONS tolerance. Pt reports consuming 100% of meals and ONS. R/O good appetite. Pt denies N/V/D/C. Percent of energy/protein needs met: 100%/100% Burn Absent Trauma Absent GI Symptoms None Current % PO Good (75-100%) Minimum of two criteria Yes Interpretation of Weight Loss (severe) >5% in 1 month Muscle Mass Mild Depletion (non-severe) #3 Nutrition Diagnosis Malnutrition Diagnosis Progress(for reassessment Continues documentation) #2 Nutrition Diagnosis Increased nutrient needs ( specify in comment below) Diagnosis Progress(for reassessment Continues documentation) Is patient on ventilator? No Is Patient Ambulatory and/or Out of Bed No REE-(Kelso-St. Jeor-confined to bed) 2269.308 Kcal/Kg value to use for calculation 21 Approximate Energy Requirements Using 0 kcal/Kg Calculation Used for Recommendations Kcal/kg Additional Notes Protein: 108-135 g (1.2-1.5 g/ kg AdBW 90 kg) Fluid: 1ml/kcal Nutrition Intervention Change Diet Order: Continue diet Add Supplement/Snack (indicate name/kcal Ensure High Protein daily /protein ) Sammy BID Provides kCal: 350 Provides Protein (gm) 21 Goal #1 Meet at least 75% protein and energy needs via PO Goal #2 ONS tolerance Goal #3 Intake of Sammy BID Anticipated Discharge Needs: Regular dier, Sammy BID and Ensure High Protein until wound healed Follow-Up By: 08/25/20 Additional Comments F/u stable intakes, ONS tolerance
[2020-08-25] MEDS: ENOXAPARIN 40 MG/0.4 ML INJ SUB-Q SCH (23:03)
[2020-08-26] MEDS: INSULIN LISPRO 100 UNIT/ML SUB-Q SCH ×4 (09:28→22:34)
--- NOTE | 2020-08-26 10:23 | Progress Note ---
Assessment and Plan Assessment and plan: Positive COVID-19 test; 05/10/2020 Negative COVID-19 test; 06/30/2020 --Hypokalemia; resolved --Acute hypoxemic resp failure; oxygen dependent on 2 L NC, today ,requiring intermittent BiPAP Due to COVID-19 pneumonia --Persistent sinus tachycardia: Multifactorial We will closely monitor --Severe COVID-19 bilateral pneumonia Coronavirus protocol: Completed steroids and remdesivir therapy, isolation precautions, Received management per COVID-19 protocol --Pneumothorax status post right chest tube Chest tube removed 07/23/2020 Post removal chest x-ray no pneumothorax Patient is requiring 3 to 4 L nasal cannula And intermittent BiPAP --Elevated D-dimers; Patient had CTA chest ; negative for PE, Lower extremity venous Doppler negative for DVT --Pseudomonas bacteremia; ID following, completed cefepime --Severe sepsis/septic shock, monitor off pressors Completed cefepime, monitor off antibiotics -- Acute kidney injury (SEN) , likely vasomotor nephropathy Resolved, avoid nephrotoxins --Acute on chronic anemia Guaiac test positive, GI evaluated the patient Patient H&H is normal range -- Elevated liver function tests; resolved LFTs within normal limits --Colonic distention GI evaluated colonic distention resolved recommend stool softeners -- DVT prophylaxis On Lovenox CTA chest negative for PE,LE DVT negative, therapeutic Lovenox DC'd Changed to prophylactic Lovenox Patient is medically stable for discharge Disposition; insurance did not approve IRU Possible subacute rehab placement DC planning per case management Plan of care reviewed with the patient and his nurse Brief history: 50 YO Male with Obesity, ETOH Dependence presents to ED for evaluation. Patient states that he has experienced shortness of breath, generalized weakness, fatigue, malaise, body aches, decreased exercise tolerance over the past 5 days with persistently worsening symptoms over the same timeframe. EMS was notified and upon arrival the patient was found to be in distress with a pulse oximetry of 76% on room air as well as fever to 103 F. Patient was placed on supplemental oxygen and subsequently transported to [facility] for further care and evaluation. Patient seen and evaluated in the emergency department. All lab and imaging studies reviewed. Patient underwent chest x-ray and was found to have bilateral pneumonia. Patient also found to have a pulse oximetry of 86% on 4 L nasal cannula. Patient initiated on a high flow submental oxygen with improvement of pulse oximetry. Patient admitted to medical floor and initiated on pneumonia protocol as well as COVID-19 protocol. Patient also found to have acute kidney injury as well as elevated liver function test suspected secondary to alcohol dependence. Patient reports being diagnosed with coronavirus 2 days ago. No prior admission for review. 07/23/2020; patient remains on high flow oxygen, wean oxygen as tolerated, severe hypokalemia Replenish per protocol monitor levels 07/24/2020; patient had chest tube removal yesterday 07/23/2019 and, post removal chest x-ray no pneumothorax no acute abnormalities Patient feels slightly better continues to require high flow oxygen Wean as tolerated, physical and occupational therapy, DC planning 07/26/2020; patient on 3 L nasal cannula oxygen, patient feels better 07/27/2020; patient was saturating well on 3 L of nasal cannula oxygen, however today patient is on high flow oxygen 15 L Complains of some congestion, wean oxygen levels to 3-5 as tolerated Discharge planning LTAC has refused patient,Possible home with home health versus placement when medically stable 07/28/2020; continue to wean oxygen, patient is on 10 L, awaiting placement 07/29/2020; continues to be on 10 L nasal cannula oxygen, wean as tolerated Patient is on empiric therapeutic dose Lovenox, due to elevated D-dimers Patient is stable for CTA chest today, follow the report and adjust Lovenox as needed DC planning per case management, with pending placement 07/30/2020; patient feels slightly better, oxygen reduced to 8 L of nasal cannula Will check PT OT, pending placement 07/31/2020 :Patient on 8 L of nasal cannula oxygen 08/03/2020; patient's oxygen requirement has come down to 3-4 and half liters nasal cannula Will try to wean oxygen as tolerated, respiratory therapist assisting to reach the goal Possible discharge home in 1 to 2 days if stable Plan of care reviewed with the patient and his nurse 08/04/2020; patient is requiring 3 to 4 L nasal cannula oxygen, case management to set up home oxygen Patient is hemodynamically and clinically stable for discharge, pending placement IRU [facility]s [facility] And of care reviewed with the patient and his nurse as well as the case management 08/05/2020 ; COVID-19 test requested , patient is hemodynamically and clinically stable for discharge Patient is requiring 4 L of nasal cannula oxygen . medically stable for discharge 08/06/2020; patient is hemodynamically and clinically stable for discharge and transfer to IRU unit today Pre-discharge COVID-19 test is negative, pending insurance authorization 08/07/20; patient is accepted by inpatient rehab unit for admission, pending insurance authorization Stable for discharge 08/08/2020; patient is stable for discharge to inpatient rehab unit, pending insurance approval 08/09/2020; home health care case manager reports that insurance has not approved inpatient rehab placement for this patient Will evaluate for home oxygen, set up home oxygen if eligible, and plan discharge home with home health when patient is hemodynamically stable 08/10/2020; patient continues to have persistent tachycardia, and persistent hypoxia requiring 4 L of nasal cannula oxygen As well as intermittent BiPAP, continue current management 08/11/2020; patient continues to require oxygen and intermittent BiPAP, awaiting IRU placement Versus home with home health and home oxygen, DC planning per case management 08/12/2020; awaiting IRU placement versus home with home health on home oxygen 08/14/2020-08/18/2020; patient continues to require 4 L of nasal cannula oxygen Discharge planning is in process, PT recommend acute inpatient rehab, awaiting insurance approval CM reports insurance denied inpatient rehab placement option 08/19/2020; I spoke with insurance physician Dr. Lopez, P2P and discussed patient's condition and the need for inpatient rehab However Dr. Macias reports that PT/OT evaluation and documentation do not reflect that patient can complete 3 hours of acute therapy in acute rehab. It reflects that he can hardly walk few steps/few feet. Advised to reevaluate if he meets the above requirements. Dr. Macias also reports that she can approve for subacute rehab placement. --08/20/2020 ;patient awaiting placement, inpatient rehab versus subacute versus home health DC planning per case management 08/21/2020; pending subacute rehab placement 08/22/2020; on 2 L nasal cannula oxygen, awaiting placement 08/23/2020; awaiting placement/insurance authorization 08/24/2020; awaiting placement, insurance authorization 08/25/2020; patient is stable on 2 L of nasal cannula oxygen, complains of generalized weakness, awaiting subacute/SNF placement 06/25/2021 ;pending insurance authorization, SNF placement History Interval history: I have seen and examined the patient at the bedside Patient's chart and medications reviewed No new events reported by the nursing staff Vital signs noted Awaiting placement insurance approval Hospitalist Physical - Constitutional Vitals: Temp Pulse Resp BP Pulse Ox 98.3 F 114 H 19 108/67 90 08/26/20 08:15 08/26/20 08:15 08/26/20 03:16 08/26/20 08:15 08/26/20 08:15 General appearance: Present: no acute distress, well-nourished - EENT Eyes: Present: PERRL, EOM intact - Neck Neck: Present: supple, normal ROM - Respiratory Respiratory effort: normal Respiratory: bilateral: diminished, negative: rales, rhonchi, wheezing - Cardiovascular Rhythm: regular Heart Sounds: Present: S1 & S2 - Extremities Extremities: no ischemia, No edema - Abdominal General gastrointestinal: soft, non-tender, non-distended, normal bowel sounds - Integumentary Integumentary: Present: clear, warm - Psychiatric Psychiatric: appropriate mood/affect, cooperative - Neurologic Neurologic: CNII-XII intact, moves all extremities HEART Score - HEART Score Troponin: Troponin T 0.015 ng/mL (0.00-0.029) 07/07/20 10:00 Results - Labs CBC & Chem 7: 08/22/20 05:11 08/23/20 04:39 Labs: Laboratory Last Values WBC 10.6 K/mm3 (4.5-11.0) 08/22/20 05:11 RBC 4.13 M/mm3 (3.65-5.03) 08/22/20 05:11 Hgb 12.9 gm/dl (11.8-15.2) 08/22/20 05:11 Hct 39.1 % (35.5-45.6) 08/22/20 05:11 MCV 95 fl (84-94) H 08/22/20 05:11 MCH 31 pg (28-32) 08/22/20 05:11 MCHC 33 % (32-34) 08/22/20 05:11 RDW 16.4 % (13.2-15.2) H 08/22/20 05:11 Plt Count 331 K/mm3 (140-440) 08/22/20 05:11 Lymph % (Auto) 18.6 % (13.4-35.0) 08/22/20 05:11 [place] % (Auto) 9.7 % (0.0-7.3) H 08/22/20 05:11 Eos % (Auto) 3.4 % (0.0-4.3) 08/22/20 05:11 Baso % (Auto) 0.5 % (0.0-1.8) 08/22/20 05:11 Lymph # (Auto) 2.0 K/mm3 (1.2-5.4) 08/22/20 05:11 [place] # (Auto) 1.0 K/mm3 (0.0-0.8) H 08/22/20 05:11 Eos # (Auto) 0.4 K/mm3 (0.0-0.4) 08/22/20 05:11 Baso # (Auto) 0.0 K/mm3 (0.0-0.1) 08/22/20 05:11 Add Manual Diff Complete 07/13/20 08:31 Total Counted 100 07/13/20 08:31 Seg Neutrophils % 67.8 % (40.0-70.0) 08/22/20 05:11 Seg Neuts % (Manual) 96.0 % (40.0-70.0) H 07/13/20 08:31 Band Neutrophils % 0 % 07/13/20 08:31 Lymphocytes % (Manual) 2.0 % (13.4-35.0) L 07/13/20 08:31 Reactive Lymphs % (Man) 0 % 07/13/20 08:31 Monocytes % (Manual) 2.0 % (0.0-7.3) 07/13/20 08:31 Eosinophils % (Manual) 0 % (0.0-4.3) 07/13/20 08:31 Basophils % (Manual) 0 % (0.0-1.8) 07/13/20 08:31 Metamyelocytes % 0 % 07/13/20 08:31 Myelocytes % 0 % 07/13/20 08:31 Promyelocytes % 0 % 07/13/20 08:31 Blast Cells % 0 % 07/13/20 08:31 Nucleated RBC % Not Reportable 07/13/20 08:31 Seg Neutrophils # 7.2 K/mm3 (1.8-7.7) 08/22/20 05:11 Seg Neutrophils # Man 20.4 K/mm3 (1.8-7.7) H 07/13/20 08:31 Band Neutrophils # 0.0 K/mm3 07/13/20 08:31 Lymphocytes # (Manual) 0.4 K/mm3 (1.2-5.4) L 07/13/20 08:31 Abs React Lymphs (Man) 0.0 K/mm3 07/13/20 08:31 Monocytes # (Manual) 0.4 K/mm3 (0.0-0.8) 07/13/20 08:31 Eosinophils # (Manual) 0.0 K/mm3 (0.0-0.4) 07/13/20 08:31 Basophils # (Manual) 0.0 K/mm3 (0.0-0.1) 07/13/20 08:31 Metamyelocytes # 0.0 K/mm3 07/13/20 08:31 Myelocytes # 0.0 K/mm3 07/13/20 08:31 Promyelocytes # 0.0 K/mm3 07/13/20 08:31 Blast Cells # 0.0 K/mm3 07/13/20 08:31 WBC Morphology Not Reportable 07/13/20 08:31 Hypersegmented Neuts Not Reportable 07/13/20 08:31 Hyposegmented Neuts Not Reportable 07/13/20 08:31 Hypogranular Neuts Not Reportable 07/13/20 08:31 Smudge Cells Not Reportable 07/13/20 08:31 Toxic Granulation Not Reportable 07/13/20 08:31 Toxic Vacuolation Not Reportable 07/13/20 08:31 Dohle Bodies Not Reportable 07/13/20 08:31 Pelger-Huet Anomaly Not Reportable 07/13/20 08:31 Jason Rods Not Reportable 07/13/20 08:31 Platelet Estimate Consistent w auto 07/13/20 08:31 Clumped Platelets Not Reportable 07/13/20 08:31 Plt Clumps, EDTA Not Reportable 07/13/20 08:31 Large Platelets Not Reportable 07/13/20 08:31 Giant Platelets Not Reportable 07/13/20 08:31 Platelet Satelliting Not Reportable 07/13/20 08:31 Plt Morphology Comment Not Reportable 07/13/20 08:31 RBC Morphology Not Reportable 07/13/20 08:31 Dimorphic RBCs Not Reportable 07/13/20 08:31 Polychromasia Not Reportable 07/13/20 08:31 Hypochromasia Not Reportable 07/13/20 08:31 Poikilocytosis Not Reportable 07/13/20 08:31 Anisocytosis Not Reportable 07/13/20 08:31 Microcytosis Not Reportable 07/13/20 08:31 Macrocytosis Not Reportable 07/13/20 08:31 Spherocytes Not Reportable 07/13/20 08:31 Pappenheimer Bodies Not Reportable 07/13/20 08:31 Sickle Cells Not Reportable 07/13/20 08:31 Target Cells Not Reportable 07/13/20 08:31 Tear Drop Cells Not Reportable 07/13/20 08:31 Ovalocytes Not Reportable 07/13/20 08:31 Stomatocytes Few 07/13/20 08:31 Helmet Cells Not Reportable 07/13/20 08:31 Sinclair-Plain Bodies Not Reportable 07/13/20 08:31 [place] Rings Not Reportable 07/13/20 08:31 [place] Cells Not Reportable 07/13/20 08:31 Bite Cells Not Reportable 07/13/20 08:31 Crenated Cell Not Reportable 07/13/20 08:31 Elliptocytes Not Reportable 07/13/20 08:31 Acanthocytes (Spur) Not Reportable 07/13/20 08:31 Rouleaux Not Reportable 07/13/20 08:31 Hemoglobin C Crystals Not Reportable 07/13/20 08:31 Schistocytes Not Reportable 07/13/20 08:31 Malaria parasites Not Reportable 07/13/20 08:31 Josue Bodies Not Reportable 07/13/20 08:31 Hem Pathologist Commnt No 07/13/20 08:31 PT 11.8 Sec. (12.2-14.9) L 06/22/20 14:29 INR 0.88 (0.87-1.13) 06/22/20 14:29 APTT 23.5 Sec. (24.2-36.6) L 06/22/20 14:29 D-Dimer 1887.82 ng/mlDDU (0-234) H 05/20/20 08:16 Heparin Anti-Xa Level 0.37 U.I./ml (0.3-0.7) 07/02/20 16:08 ABG pH 7.437 (7.320-7.450) 08/11/20 18:43 POC ABG pCO2 51.0 mmHg (32.0-48.0) H 08/11/20 18:43 ABG pCO2 53.1 mm Hg 07/08/20 Unknown POC ABG pO2 84.9 mmHg (83-108) 08/11/20 18:43 ABG pO2 75.3 mm Hg (80.0-90.0) L 07/08/20 Unknown POC ABG HCO3 33.6 08/11/20 18:43 ABG HCO3 34.3 mmol/L (20.0-26.0) H 07/08/20 Unknown ABG O2 Saturation 96.5 % (95.0-99.0) 07/08/20 Unknown ABG O2 Content 13.5 (0.0-44) 07/08/20 Unknown POC ABG Base Excess 7.9 08/11/20 18:43 ABG Base Excess 8.7 mmol/L (-2.0-3.0) H 07/08/20 Unknown ABG Hemoglobin 13.8 (12.0-17.5) 08/11/20 18:43 ABG Oxyhemoglobin 94.6 (94-98) 08/11/20 18:43 ABG Carboxyhemoglobin 2.4 % (0.0-5.0) 07/08/20 Unknown ABG Methemoglobin 0.3 (0.0-1.5) 08/11/20 18:43 ABG Sodium 138.0 mmol/L (136.0-145.0) 08/11/20 18:43 ABG Potassium 3.4 mmol/L (3.40-4.50) 08/11/20 18:43 ABG Chloride 99.0 mmol/L (98-107) 08/11/20 18:43 ABG Glucose 149 mg/dL (65-95) H 08/11/20 18:43 Oxyhemoglobin 93.7 % (95.0-99.0) L 07/08/20 Unknown Carboxyhemoglobin 1.2 (0.5-1.5) 08/11/20 18:43 FiO2 50.0 08/11/20 18:43 Sodium 143 mmol/L (137-145) 08/22/20 05:11 Potassium 3.8 mmol/L (3.6-5.0) 08/23/20 04:39 Chloride 99.8 mmol/L (98-107) 08/22/20 05:11 Carbon Dioxide 31 mmol/L (22-30) H 08/22/20 05:11 Anion Gap 16 mmol/L 08/22/20 05:11 BUN 15 mg/dL (9-20) 08/22/20 05:11 Creatinine 0.6 mg/dL (0.8-1.3) L 08/22/20 05:11 Estimated GFR > 60 ml/min 08/22/20 05:11 BUN/Creatinine Ratio 25 % 08/22/20 05:11 Glucose 95 mg/dL (75-100) 08/22/20 05:11 POC Glucose 103 mg/dL (70-105) 08/25/20 15:54 Lactic Acid 0.80 mmol/L (0.7-2.0) 07/13/20 15:45 Calcium 10.1 mg/dL (8.4-10.2) 08/22/20 05:11 Phosphorus 5.10 mg/dL (2.5-4.5) H 08/22/20 05:11 Magnesium 1.90 mg/dL (1.7-2.3) 08/23/20 04:39 Ferritin 1496.0 ng/mL (30.0-300.0) H 06/14/20 11:50 Total Bilirubin 0.30 mg/dL (0.1-1.2) 08/02/20 05:55 Direct Bilirubin 0.6 mg/dL (0-0.2) H 05/11/20 07:30 Indirect Bilirubin 0.9 mg/dL 05/11/20 07:30 AST 37 units/L (5-40) 08/02/20 05:55 ALT 118 units/L (7-56) H 08/02/20 05:55 Alkaline Phosphatase 88 units/L (35-129) 08/02/20 05:55 Lactate Dehydrogenase 705 units/L (91-180) H 05/20/20 08:16 Troponin T 0.015 ng/mL (0.00-0.029) 07/07/20 10:00 C-Reactive Protein 3.10 mg/dL (0.00-1.30) H 05/20/20 08:16 Total Protein 6.4 g/dL (6.3-8.2) 08/02/20 05:55 Albumin 3.3 g/dL (3.9-5) L 08/02/20 05:55 Albumin/Globulin Ratio 1.1 % 08/02/20 05:55 Triglycerides 452 mg/dL (2-149) H 06/30/20 07:00 Lipase 86 units/L (13-60) H 06/29/20 09:36 Procalcitonin 2.15 ng/mL (<0.15) 07/15/20 05:31 Arterial Blood Glucose 149 mg/dL (65-95) H 08/11/20 18:43 Arterial Blood Ionized Calcium 4.8 mg/dL (4.6-5.3) 08/11/20 18:43 Urine Color Fauzia (Yellow) 05/10/20 Unknown Urine Turbidity Clear (Clear) 05/10/20 Unknown Urine pH 5.0 (5.0-7.0) 05/10/20 Unknown Ur Specific [place] 1.019 (1.003-1.030) 05/10/20 Unknown Urine Protein 100 mg/dl mg/dL (Negative) 05/10/20 Unknown Urine Glucose (UA) Neg mg/dL (Negative) 05/10/20 Unknown Urine Ketones Neg mg/dL (Negative) 05/10/20 Unknown Urine Blood Lg (Negative) 05/10/20 Unknown Urine Nitrite Neg (Negative) 05/10/20 Unknown Urine Bilirubin Neg (Negative) 05/10/20 Unknown Urine Urobilinogen 2.0 mg/dL (<2.0) 05/10/20 Unknown Ur Leukocyte Esterase Neg (Negative) 05/10/20 Unknown Urine WBC (Auto) 11.0 /HPF (0.0-6.0) H 05/10/20 Unknown Urine RBC (Auto) 2.0 /HPF (0.0-6.0) 05/10/20 Unknown U Epithel Cells (Auto) 1.0 /HPF (0-13.0) 05/10/20 Unknown Urine Bacteria (Auto) 1+ /HPF (Negative) 05/10/20 Unknown Urine Mucus Few /HPF 05/10/20 Unknown Plasma/Serum Alcohol < 0.01 % (0-0.07) 05/09/20 14:20 Coronavirus (PCR) Negative (Negative) 08/25/20 10:09 Hepatitis A Ab Total Nonreactive (Nonreactive) 07/09/20 Unknown Hep B Core Total Ab Nonreactive (Nonreactive) 07/09/20 Unknown Hepatitis C RNA Quant See scanned result 07/09/20 Unknown SARS-CoV-2 IgG Ab Reactive (NonReactive) A 05/11/20 07:30 Blood Type B POSITIVE 06/21/20 14:18 Antibody Screen Negative 06/21/20 14:18 Crossmatch See Detail 06/21/20 14:18 - Diagnostic Impressions Diagnostic Impressions: Echocardiogram 05/20/20 13:02 Transthoracic Echocardiogram Indication: CHF BP: 97/73 Conclusions *The study quality is technically very difficult and limited. *The left ventricular chamber size, wall thickness and systolic function are within normal limits. There are no wall motion abnormalities observed. Ejection fraction is normal. *The estimated ejection fraction is 60-65%. *The pericardium appears normal. Findings Procedure Info: The study quality is technically difficult. Left Ventricle: The left ventricular chamber size, wall thickness and systolic function are within normal limits. There are no wall motion abnormalities observed. Ejection fraction is normal. The estimated ejection fraction is 60-65%. Abnormal left ventricular diastolic filling is observed, consistent with impaired relaxation. Left Atrium: The left atrium is normal in size with no visual thrombus identified. Right Ventricle: The right ventricle is not well visualized. Right Atrium: The right atrium is not well visualized. Aortic Valve: The aortic valve is trileaflet. The leaflets are thin with normal excursion. There is no aortic stenosis or regurgitation present. Mitral Valve: The mitral valve appears normal in structure and function. Tricuspid Valve: The tricuspid valve appears normal in structure and function. Unable to estimate the right ventricular systolic pressure. Pulmonic Valve: The pulmonic valve is not well visualized. There is no evidence of pulmonic regurgitation. There is no pulmonic stenosis. Pericardium: The pericardium appears normal. Pulmonary Artery: The main pulmonary artery is not well visualized. Venous: The inferior vena cava appears normal in size. Measurements Chambers 2D Name Value Normal Range IVSd (2D) 0.83 cm (0.6 - 1.1) LVPWd (2D) 0.83 cm (0.6 - 1.1) LVIDd (2D) 3.88 cm (3.7 - 5.6) LVIDs (2D) 2.46 cm (2 - 3.8) LV FS (2D) 36.52 % - EF Teichholz (2D) 66.97 % - Ao root diameter (2D) 3.47 cm (2 - 3.7) Volumes/Mass Name Value Normal Range LA ESV SP 4CH (A/L) 22.4 ml - LA ESV SP 2CH (A/L) 22.89 ml - LA ESV BP (A/L) 23.06 ml - LA ESV SP 4CH (MOD) 21.09 ml - LA ESV SP 2CH (MOD) 22.44 ml - Diastolic/Systolic Function Name Value Normal Range MV E-wave Vmax 0.48 m/sec - MV deceleration time 156.3 msec - MV A-wave Vmax 0.59 m/sec - MV E:A ratio 0.81 ratio - Aortic Valve Name Value Normal Range AV Vmax 0.97 m/sec - AV VTI 14.49 cm - AV peak gradient 3.73 mmHg - AV mean gradient 1.89 mmHg - LVOT diameter 2.09 cm - LVOT Vmax 0.72 m/sec - LVOT VTI 10.21 cm - LVOT peak gradient 2.05 mmHg - LVOT mean gradient 1.03 mmHg - SV LVOT 35.17 ml - INNA (continuity Vmax) 2.55 cm2 - INNA (continuity VTI) 2.43 cm2 - Tricuspid Valve Name Value Normal Range TV E-wave Vmax 0.37 m/sec - Pulmonic Valve/Qp:Qs Name Value Normal Range PV Vmax 0.72 m/sec - PV peak gradient 2.06 mmHg - RVOT Vmax 0.85 m/sec - RVOT VTI 9.89 cm - RVOT peak gradient 2.9 mmHg - PV acceleration time 72.31 msec - Cantor/IV: Voiding Method Urinal IV Catheter Type [Right Wrist] INT / Saline Lock IV Catheter Type [Right Upper Peripheral IV arm] IV Catheter Type [Right CVL Internal Jugular] IV Catheter Type [Right Peripheral IV Forearm] IV Catheter Type [Left Forearm INT / Saline Lock ] IV Catheter Type [Left Wrist] INT / Saline Lock IV Catheter Type [Right Hand] INT / Saline Lock IV Catheter Type [Left Hand] INT / Saline Lock IV Catheter Type [Left Peripheral IV Antecubital] Active Medications - Current Medications Current Medications: Generic Name Dose Route Start Last Admin Trade Name Freq PRN Reason Stop Dose Admin Acetaminophen 650 mg 08/07/20 10:06 08/23/20 22:37 Acetaminophen 325 Mg Tab PO 650 mg Q4H PRN Administration Pain, Mild (1-3) Bisacodyl 10 mg 07/14/20 11:00 Bisacodyl 10 Mg Rect Supp CO BID PRN Laxative Effect Enoxaparin Sodium 40 mg 07/29/20 22:00 08/25/20 23:03 Enoxaparin 40 Mg/0.4 Ml Inj SUB-Q 40 mg QDAY@2200 DESIRE Administration Protocol Folic Acid 1 mg 05/09/20 15:36 08/25/20 10:13 Folic Acid 1 Mg Tab PO 1 mg QDAY DESIRE Administration Guaifenesin 600 mg 07/19/20 23:00 08/25/20 23:03 Guaifenesin Er 600 Mg Tab PO 600 mg BID [facility] Administration Hydrophilic Ointment 1 applic 05/21/20 20:33 Lip Therapy Vaseline TP Q2HR PRN Dry Lips Insulin Human Lispro 0 unit 07/31/20 07:30 08/26/20 09:28 Insulin Lispro 100 Unit/Ml SUB-Q Not Given ACHS [facility] Protocol Lansoprazole 30 mg 06/28/20 10:00 08/25/20 10:13 Lansoprazole 30 Mg Solutab FEEDTUBE 30 mg QDAY DESIRE Administration Metoprolol Tartrate 5 mg 07/02/20 17:17 08/23/20 13:57 Metoprolol Tartrate 5 Mg/5 Ml Inj IV 5 mg Q6HR PRN Administration Tachyarrhythmias Metoprolol Tartrate 25 mg 08/12/20 12:00 08/25/20 23:03 Metoprolol Tartrate 25 Mg Tab PO 25 mg BID DESIRE Administration Multi-Ingred Cream/Lotion/Oil/Oint 1 applic 05/21/20 20:33 Mineral Oil/Petrolatum, White Ophth Oint 3.5 Gm OU Q4HR PRN Dry Eye(s) Olanzapine 5 mg 07/17/20 22:00 08/25/20 23:03 Olanzapine 5 Mg Tab PO 5 mg QHS DESIRE Administration Ondansetron HCl 4 mg 08/23/20 13:10 Ondansetron 4 Mg/2 Ml Inj IV Q4H PRN Nausea And Vomiting Phenobarbital 32.4 mg 07/04/20 22:00 08/25/20 23:04 Phenobarbital 32.4 Mg Tab PO 32.4 mg BID DESIRE Administration Pseudoephedrine/Acetam/Chlorphenir 10 ml 08/18/20 15:45 08/23/20 22:37 Guaifenesin/Codeine 100-10mg Oral Liqd 5 Ml PO 10 ml Q4H PRN Administration Cough Quetiapine Fumarate 200 mg 07/16/20 10:00 08/25/20 10:13 Quetiapine 200 Mg Tab PO 200 mg QAM DESIRE Administration Senna 17.2 mg 07/14/20 11:00 08/03/20 16:46 Sennosides 8.6 Mg Tab PO 8.6 mg BID PRN Administration Laxative Effect Nutrition/Malnutrition Assess - Dietary Evaluation Nutrition/Malnutrition Findings: Nutrition Notes Start: 05/17/20 14:10 Freq: Status: Active Protocol: Document 08/25/20 11:44 CW (Rec: 08/25/20 11:59 CW [id number]) Nutrition Notes Initial or Follow up Reassessment Current Diagnosis Acute Kidney Injury,Decubitus( Pressure Ulcer),Sepsis, Respiratory Failure Other Pertinent Diagnosis Bilat pneu,Colonic pseudoobstuction, EtOH dependence Current Diet Regular diet Labs/Tests Reviewed Pertinent Medications Humalog Height 6 ft Weight 101.2 kg Bowie Body Weight (kg) 80.90 BMI 30.2 Weight change and time frame Weight gain noted Weight Status Obese Subjective/Other Information F/U for ONS and intakes. Pt states drinking and eating 100 % of meals and ONS. Denies N/V /D/C. Weight is trending upwards. Will continue ONS despite weight gain for needed protein for wound healing. Adm weight on 07/27 noted as 96 .1kg, indicating a 5% weight gain x 30 days. 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 Pt awaitign transfer to rehab facility Diagnosis Progress(for reassessment Continues documentation) #2 Nutrition Diagnosis Increased nutrient needs ( specify in comment below) Diagnosis Progress(for reassessment Continues documentation) Is patient on ventilator? No Is Patient Ambulatory and/or Out of Bed No REE-([place]-confined to bed) [phone] Kcal/Kg value to use for calculation 20 Approximate Energy Requirements Using 2023 kcal/Kg Calculation Used for Recommendations Kcal/kg Additional Notes Protein: 110-137 g (1.2-1.5 g/ kg AdBW 91.05 kg) Fluid: 1ml/kcal Nutrition Intervention Change Diet Order: Continue diet Add Supplement/Snack (indicate name/kcal Ensure High Protein daily /protein ) Sammy BID Provides kCal: 350 Provides Protein (gm) 21 Goal #1 Meet at least 75% protein and energy needs via PO Goal #2 ONS tolerance Goal #3 Intake of Sammy BID Anticipated Discharge Needs: Regular dier, Sammy BID and Ensure High Protein until wound healed Follow-Up By: 09/01/20 Additional Comments F/u stable intakes, ONS tolerance
[2020-08-26] MEDS: guaiFENesin ER 600 MG TAB PO SCH ×2 (11:50→22:21)
[2020-08-26] MEDS: PHENobarbital 32.4 MG TAB PO SCH ×2 (11:51→22:21)
[2020-08-26] MEDS: QUEtiapine 200 MG TAB PO SCH (11:51)
[2020-08-26] MEDS: METOPROLOL TARTRATE 25 MG TAB PO SCH ×2 (11:51→22:21)
[2020-08-26] MEDS: LANSOPRAZOLE 30 MG SOLUTAB FEEDTUBE SCH (11:51)
[2020-08-26] MEDS: FOLIC ACID 1 MG TAB PO SCH (11:51)
[2020-08-26] MEDS: ENOXAPARIN 40 MG/0.4 ML INJ SUB-Q SCH (22:20)
[2020-08-27] MEDS: INSULIN LISPRO 100 UNIT/ML SUB-Q SCH ×4 (08:06→22:49)
[2020-08-27] MEDS: METOPROLOL TARTRATE 25 MG TAB PO SCH ×2 (09:37→22:46)
[2020-08-27] MEDS: FOLIC ACID 1 MG TAB PO SCH (09:37)
[2020-08-27] MEDS: QUEtiapine 200 MG TAB PO SCH (09:37)
[2020-08-27] MEDS: LANSOPRAZOLE 30 MG SOLUTAB FEEDTUBE SCH (09:37)
[2020-08-27] MEDS: guaiFENesin ER 600 MG TAB PO SCH ×2 (09:37→22:49)
[2020-08-27] MEDS: PHENobarbital 32.4 MG TAB PO SCH ×2 (09:37→22:46)
--- NOTE | 2020-08-27 18:39 | Progress Note ---
Assessment and Plan Assessment and Plan Positive COVID-19 test; 05/10/2020 Negative COVID-19 test; 06/30/2020 --Acute hypoxemic resp failure; oxygen dependent on 4 L NC, requiring intermittent BiPAP Due to COVID-19 pneumonia --Persistent sinus tachycardia: Multifactorial We will closely monitor --Severe COVID-19 bilateral pneumonia Coronavirus protocol: Completed steroids and remdesivir therapy, isolation precautions, Received management per COVID-19 protocol Repeat ivory PCR test negative on 06/30/2020 Isolation discontinued --Pneumothorax status post right chest tube Chest tube removed 07/23/2020 Post removal chest x-ray no pneumothorax Patient is requiring 3 to 4 L nasal cannula And intermittent BiPAP --Severe hypokalemia; resolved --Elevated D-dimers; Patient had CTA chest ; negative for PE, patient already had lower extremity venous Doppler which was negative for DVT --Pseudomonas bacteremia; ID following, completed cefepime Monitor off antibiotics --Severe sepsis/septic shock, monitor off pressors Completed cefepime, monitor off antibiotics -- Acute kidney injury (SEN) , likely vasomotor nephropathy Resolved, avoid nephrotoxins --Acute on chronic anemia Guaiac test positive, GI evaluated the patient Patient H&H is normal range now Hb 11.8 -- Elevated liver function tests; resolved LFTs within normal limits --Colonic distention GI evaluated colonic distention resolved recommend stool softeners -- DVT prophylaxis On therapeutic Lovenox Chest tube removed Patient on 10 L nasal cannula oxygen, wean as tolerated Elevated D-dimers, on empiric therapeutic Lovenox CTA chest negative for PE,LE DVT negative, therapeutic Lovenox DC'd Changed to prophylactic Lovenox Discharge planning per case management CM reports that IRU is evaluating the patient for placement Patient is medically stable for discharge Disposition; IRU placement versus home with home health Discussed with case management again today Case management to work on placement Placement issues Subjective Date of service: 08/27/20 Principal diagnosis: Ac hypoxemic resp failure; COVID-19; Severe Sepsis; Shaggy PNA; Alcohol Abuse Interval history: Brief history and hospital course; Patient with pneumothorax status post chest tube placement and removal continues to require 4 to 5 L of nasal cannula oxygen, initially IRU placement was considered, insurance did not approve, daughter is trying for reconsideration for IRU placement, patient pending placement versus home with home health when stable 07/23/2020; patient remains on high flow oxygen, wean oxygen as tolerated, severe hypokalemia Replenish per protocol monitor levels 07/24/2020; patient had chest tube removal yesterday 07/23/2019 and, post removal chest x-ray no pneumothorax no acute abnormalities Patient feels slightly better continues to require high flow oxygen Wean as tolerated, physical and occupational therapy, DC planning 07/26/2020; patient on 3 L nasal cannula oxygen, patient feels better 07/27/2020; patient was saturating well on 3 L of nasal cannula oxygen, however today patient is on high flow oxygen 15 L Complains of some congestion, wean oxygen levels to 3-5 as tolerated Discharge planning LTAC has refused patient,Possible home with home health versus placement when medically stable 07/28/2020; continue to wean oxygen, patient is on 10 L, awaiting placement 07/29/2020; continues to be on 10 L nasal cannula oxygen, wean as tolerated Patient is on empiric therapeutic dose Lovenox, due to elevated D-dimers Patient is stable for CTA chest today, follow the report and adjust Lovenox as needed DC planning per case management, with pending placement 07/30/2020; patient feels slightly better, oxygen reduced to 8 L of nasal cannula Will check PT OT, pending placement 07/31/2020 :Patient on 8 L of nasal cannula oxygen 08/03/2020; patient's oxygen requirement has come down to 3-4 and half liters nasal cannula Will try to wean oxygen as tolerated, respiratory therapist assisting to reach the goal Possible discharge home in 1 to 2 days if stable Plan of care reviewed with the patient and his nurse 08/04/2020; patient is requiring 3 to 4 L nasal cannula oxygen, case management to set up home oxygen Patient is hemodynamically and clinically stable for discharge, pending placement [facility] And of care reviewed with the patient and his nurse as well as the case man agement 08/05/2020 ; COVID-19 test requested , patient is hemodynamically and clinically stable for discharge Patient is requiring 4 L of nasal cannula oxygen . medically stable for discharge 08/06/2020; patient is hemodynamically and clinically stable for discharge and transfer to IRU unit today Pre-discharge COVID-19 test is negative, pending insurance authorization 08/07/20; patient is accepted by inpatient rehab unit for admission, pending insurance authorization Stable for discharge 08/08/2020; patient is stable for discharge to inpatient rehab unit, pending insurance approval 08/09/2020; special education case manager reports that insurance has not approved inpatient rehab placement for this patient Will evaluate for home oxygen, set up home oxygen if eligible, and plan discharge home with home health when patient is hemodynamically stable 08/10/2020; patient continues to have persistent tachycardia, and persistent hypoxia requiring 4 L of nasal cannula oxygen As well as intermittent BiPAP, continue current management 08/11/2020; patient continues to require oxygen and intermittent BiPAP, awaiting IRU placement Versus home with home health and home oxygen, DC planning per case management 08/12/2020; awaiting IRU placement versus home with home health on home oxygen 08/13/2020 through 08/14/2020 Patient awaiting transfer placement 08/14/2020 through 08/16/2020 Patient waiting for rehab placement Discussed with case management today again Objective - Constitutional Vitals: Vital Signs - 12hr 08/27/20 08/27/20 08/27/20 08:41 08:59 10:35 Temperature 97.3 F L Pulse Rate 104 H 91 H Blood Pressure 106/78 O2 Sat by Pulse 93 96 Oximetry 08/27/20 14:42 Temperature 97.3 F L Pulse Rate 107 H Blood Pressure 105/68 O2 Sat by Pulse 97 Oximetry General appearance: Present: no acute distress, well-nourished - EENT Eyes: PERRL, EOM intact ENT: hearing intact, clear oral mucosa Ears: bilateral: normal - Neck Neck: supple, normal ROM - Respiratory Respiratory effort: normal Respiratory: bilateral: CTA - Breasts Breasts: normal - Cardiovascular Heart rate: 76 Rhythm: regular Heart Sounds: Present: S1 & S2. Absent: gallop, rub Extremities: pulses intact, No edema, normal color, Full ROM - Gastrointestinal General gastrointestinal: Present: soft, non-tender, non-distended, normal bowel sounds - Genitourinary Male genitourinary: normal - Integumentary Integumentary: clear, warm, dry - Musculoskeletal Musculoskeletal: 1, strength equal bilaterally - Neurologic Neurologic: moves all extremities - Psychiatric Psychiatric: memory intact, appropriate mood/affect, intact judgment & insight - Labs CBC & Chem 7: 08/22/20 05:11 08/23/20 04:39 Labs: Abnormal lab results 08/27/20 Range/Units 16:06 POC Glucose 107 H (70-105) mg/dL HEART Score - HEART Score Troponin: Troponin T 0.015 ng/mL (0.00-0.029) 07/07/20 10:00
[2020-08-27] MEDS: ENOXAPARIN 40 MG/0.4 ML INJ SUB-Q SCH (22:46)
[2020-08-28] MEDS: INSULIN LISPRO 100 UNIT/ML SUB-Q SCH ×4 (08:00→22:53)
--- NOTE | 2020-08-28 08:24 | Progress Note ---
Assessment and Plan Assessment and plan: - Acute hypoxemic respiratory failure; Patient intubated and on vent support weaning protocol - need tach placement --Severe COVID-19 bilateral pneumonia Coronavirus protocol: IV steroid therapy, completed remdesivir, isolation precautions, contact precautions, prone positioning while in bed, pulmonary toilet. ID following SARS CoV-2 IgG positive patient is NOT a candidate for COVID convalescent plasma Covid test came negative on 06/30/20 --Severe sepsis/septic shock, due to COVID 19 PNA cont pressors as needed -- Acute kidney injury (SEN) , likely vasomotor nephropathy Resolved, IV fluids, avoid nephrotoxins --Acute on chronic anemia Guaiac test positive GI evaluation PPIs Continue to monitor -- Elevated liver function tests Suspected secondary to alcoholic liver disease. Supportive care, alcohol cessation, patient counseled. --Colonic pseudoobstruction likely from acute on chronic illness GI evaluation -recommend stool softeners Serial abdominal x-rays Monitor electrolytes and replete --History of alcohol dependence, status post CIWA protocol along with thiamine folic acid and multivitamin --right pneumothorax, s/p right chest tube placed on 06/21/20 Patient will need chest tube until patient is extubated -- DVT prophylaxis On therapeutic Lovenox The high probability of a clinically significant, sudden or life threatening deterioration of the [respiratory] system(s) required my full and direct attention, intervention and personal management. The aggregate critical care time was [31] minutes. This time is in addition to time spent performing reported procedures but includes the following: [x] Data Review and interpretation [x] Patient assessment and monitoring of vital signs [x] Documentation [x] Medication orders and management Brief History: 50 YO Male with Obesity, ETOH Dependence presents to ED for evaluation for shortness of breath, generalized weakness, fatigue, malaise, body aches, decreased exercise tolerance over the past 5 days. EMS was notified and upon arrival the patient was found to be in distress with a pulse oximetry of 76% on room air as well as fever to 103 F. In the ER chest x-ray and was found to have bilateral pneumonia. Patient admitted to medical floor and initiated on pneumonia protocol as well as COVID-19 protocol. Patient reports being diagnosed with coronavirus 2 days ago before admission. 05/10- 05/17: follow inflammatory markers, consulted ID/pulmonary. patient on high flow O2 05/18/20; patient feels slightly better still hypoxic, requiring continuous high flow oxygen and BiPAP Respiratory team trying to wean 05/19/20; patient is severely hypoxemic requiring continuous BiPAP today, complains of generalized weakness Trying to wean off high flow oxygen, patient is in isolation 05/20/2020; patient remains on high flow oxygen/BiPAP/100% nonrebreather. Still is hypoxemic Has sinus tachycardia patient in mild distress Wean off high flow oxygen as tolerated, pulmonary critical following 05/21/20; patient is critically ill, on continuous BiPAP remains hypoxemic in mild distress. Patient has severe Covid Pneumonia with persistent hypoxemia and poor prognosis. 05/22/2020: Patient was intubated last night because of persistent hypoxemia. 05/23-06/15: Remains on ventilatory support, unable to wean off from the vent. 06/16/2020. Patient currently on mechanical ventilation with AC mode rate 30, tidal volume 500, FiO2 70% and PEEP of 16. Continue anticoagulation with Lovenox 110 milligrams subcu every 12 hours. Wean sedation of fentanyl/Versed as needed. Currently with IV steroids of Solu-Medrol 40 mg IV every 12 hours. Patient will likely need tracheostomy per pulmonary recommendations. Continue pressors to maintain MAP > 65. 06/17/2020. Patient currently on mechanical ventilation with AC mode rate 30, tidal volume 500, FiO2 65% and PEEP of 16. Continue anticoagulation with Lovenox 110 milligrams subcu every 12 hours. Wean sedation of fentanyl/Versed as needed. Currently with IV steroids of Solu-Medrol 40 mg IV every 12 hours. Patient will likely need tracheostomy per pulmonary recommendations. 06/18/2020. Patient currently on mechanical ventilation with AC mode rate 30, tidal volume 500, FiO2 70% and PEEP of 16. Continue Lovenox for anticoagulation and fentanyl/Versed for sedation. Wean steroids per pulmonary. CIWA protocol initiated for history of EtOH dependence 06/19/2020. Patient currently on mechanical ventilation with AC mode rate 30, tidal volume 500, FiO2 60% and PEEP of 16. Wean FiO2 as tolerated per protocol. Continue Lovenox for anticoagulation and fentanyl/Versed for sedation. Wean steroids per pulmonary. CIWA protocol initiated for history of EtOH dependence 06/20/2020. Patient currently on mechanical ventilation with AC mode rate 30, tidal volume 500, FiO2 60% and PEEP of 16. Wean FiO2 as tolerated, SBT per protocol. Continue Lovenox for anticoagulation and fentanyl/Versed for sedation. Wean steroids per pulmonary. Continue pressors to maintain MAP > 65 mmHg. Patient remains on ETT. Consider tracheostomy placement once oxygenation is better per pulmonary. CIWA protocol initiated for history of EtOH dependence. 06/21/2020. Patient with a small apical pneumothorax discovered yesterday. General surgery consulted and consider placing chest tube. Follow-up serial chest x-ray patient currently on mechanical ventilation with AC mode rate 30, tidal volume 500, FiO2 60% and PEEP of 16. Wean FiO2 as tolerated, SBT per protocol. Continue Lovenox for anticoagulation and fentanyl/Versed for sedation. Wean steroids per pulmonary. Continue pressors to maintain MAP > 65 mmHg. Patient remains on ETT. Consider tracheostomy placement once oxygenation is better per pulmonary. CIWA protocol initiated for history of EtOH dependence. 06/22. Status post right chest tube placement yesterday. Remains mechanically ventilated on pressors. Examination today shows slightly distended abdomen. KUB ordered. Awaiting stool guaiac. Plan to get a GI evaluation. 06/23. Has colonic distention on the x-ray. Discussed with GI-advised stool softeners for now and close monitoring. No indication for colonic decompression at this time. Guaiac test is positive. No emergent indication for endoscopy at this point as per GI. Continue to monitor hemoglobin. 06/24. Remains intubated. On pressors. GI following for positive guaiac stool and anemia, and colonic distention. 06/25. Repeat abdominal xray ordered. Remains on mechanical ventilation. 06/26. Abdominal xray - resolved colonic distension. Mechanically ventilated. 06/27. Plan for trach and PEG. 06/28: Awaiting trach and Peg. Some Bm REPORTED, will continue to monitor 06/29: Resume care, patient remains on ventilator support, waiting on trach and PEG placement. BM reported by the RN, continue to monitor. 06/30: Unable to wean off from vent, patient will need trach and PEG. Continue supportive care, tolerating tube feed. Monitor CBC and BMP 07/01: Continue mechanical ventilation, tube feeding as tolerated. Sedation as needed per mechanical ventilation protocol. Waiting on trach and PEG placement. 07/02: Continue current management, tube feeding, monitor CBC and BMP. Need tra ch and PEG-waiting on scheduling. Pulmonary critical care following. 07/03: wean off vent as tolerated. follow clinically. need trach and PEG 07/04: unable to wean. CT head ordered to assess for any changes but too unstable to do the test. need trach and PEG. 07/05: plan for trach/peg - GS following. off pressor - on midodrine. renal function stable. intubated, but alert and can follow minor commend. discussed with daughter by phone. 07/06/2020; Dr. Márquez discussed with patient's daughter about trach but the daughter needs time to think about it. Patient was intubated and alert, FiO2 40 %. 07/07/2020; patient was intubated and alert, FiO2 40%. Patient was diaphoretic, tachycardic, and EKG was done which was abnormal for me. I called hair mixer Dr Louis saw the EKG and said it is normal EKG, and the findings are abnormal. 07/08/2020; no significant change, patient is intubated and alert. 08/08/2020; patient is stable for discharge to inpatient rehab unit, pending insurance approval 08/09/2020; case checker reports that insurance has not approved inpatient rehab placement for this patient Will evaluate for home oxygen, set up home oxygen if eligible, and plan discharge home with home health when patient is hemodynamically stable 08/10/2020; patient continues to have persistent tachycardia, and persistent hypoxia requiring 4 L of nasal cannula oxygen As well as intermittent BiPAP, continue current management 08/11/2020; patient continues to require oxygen and intermittent BiPAP, awaiting IRU placement Versus home with home health and home oxygen, DC planning per case management 08/12/2020; awaiting IRU placement versus home with home health on home oxygen 08/13/2020 through 08/14/2020 Patient awaiting transfer placement 08/14/2020 through 08/16/2020 Patient waiting for rehab placement Discussed with case management today again 08/28/2020; patient was alert and oriented, he said he has generalized weakness, but able to stand. He is on 3 L of oxygen and doing well. Pending insurance authorization to rehab placement. Case management to following. History Interval history: Patient was seen and evaluated this morning Patient was alert and oriented Patient is on 3 L of intranasal oxygen Hospitalist Physical - Physical exam Narrative exam: Not in cardiopulmonary distress. On 3 L of oxygen The patient is obese. Vital signs as documented. Head exam is unremarkable. No scleral icterus . Neck is without jugular venous distension, thyromegaly, or carotid bruits. Lungs are clear to auscultation. Cardiac exam reveals regular rate and Rhythm. Abdominal exam reveals normal bowel sounds, nontender, no organomegaly. Extremities are nonedematous and both femoral and pedal pulses are normal. 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 No focal weakness. - Constitutional Vitals: Temp Pulse Resp BP Pulse Ox 98.1 F 87 20 101/64 100 08/28/20 03:50 08/28/20 03:50 08/28/20 03:50 08/28/20 03:50 08/28/20 03:50 General appearance: Present: no acute distress, well-nourished HEART Score - HEART Score Troponin: Troponin T 0.015 ng/mL (0.00-0.029) 07/07/20 10:00 Results - Labs CBC & Chem 7: 08/22/20 05:11 08/23/20 04:39 Labs: Laboratory Last Values WBC 10.6 K/mm3 (4.5-11.0) 08/22/20 05:11 RBC 4.13 M/mm3 (3.65-5.03) 08/22/20 05:11 Hgb 12.9 gm/dl (11.8-15.2) 08/22/20 05:11 Hct 39.1 % (35.5-45.6) 08/22/20 05:11 MCV 95 fl (84-94) H 08/22/20 05:11 MCH 31 pg (28-32) 08/22/20 05:11 MCHC 33 % (32-34) 08/22/20 05:11 RDW 16.4 % (13.2-15.2) H 08/22/20 05:11 Plt Count 331 K/mm3 (140-440) 08/22/20 05:11 Lymph % (Auto) 18.6 % (13.4-35.0) 08/22/20 05:11 Woods % (Auto) 9.7 % (0.0-7.3) H 08/22/20 05:11 Eos % (Auto) 3.4 % (0.0-4.3) 08/22/20 05:11 Baso % (Auto) 0.5 % (0.0-1.8) 08/22/20 05:11 Lymph # (Auto) 2.0 K/mm3 (1.2-5.4) 08/22/20 05:11 Woods # (Auto) 1.0 K/mm3 (0.0-0.8) H 08/22/20 05:11 Eos # (Auto) 0.4 K/mm3 (0.0-0.4) 08/22/20 05:11 Baso # (Auto) 0.0 K/mm3 (0.0-0.1) 08/22/20 05:11 Add Manual Diff Complete 07/13/20 08:31 Total Counted 100 07/13/20 08:31 Seg Neutrophils % 67.8 % (40.0-70.0) 08/22/20 05:11 Seg Neuts % (Manual) 96.0 % (40.0-70.0) H 07/13/20 08:31 Band Neutrophils % 0 % 07/13/20 08:31 Lymphocytes % (Manual) 2.0 % (13.4-35.0) L 07/13/20 08:31 Reactive Lymphs % (Man) 0 % 07/13/20 08:31 Monocytes % (Manual) 2.0 % (0.0-7.3) 07/13/20 08:31 Eosinophils % (Manual) 0 % (0.0-4.3) 07/13/20 08:31 Basophils % (Manual) 0 % (0.0-1.8) 07/13/20 08:31 Metamyelocytes % 0 % 07/13/20 08:31 Myelocytes % 0 % 07/13/20 08:31 Promyelocytes % 0 % 07/13/20 08:31 Blast Cells % 0 % 07/13/20 08:31 Nucleated RBC % Not Reportable 07/13/20 08:31 Seg Neutrophils # 7.2 K/mm3 (1.8-7.7) 08/22/20 05:11 Seg Neutrophils # Man 20.4 K/mm3 (1.8-7.7) H 07/13/20 08:31 Band Neutrophils # 0.0 K/mm3 07/13/20 08:31 Lymphocytes # (Manual) 0.4 K/mm3 (1.2-5.4) L 07/13/20 08:31 Abs React Lymphs (Man) 0.0 K/mm3 07/13/20 08:31 Monocytes # (Manual) 0.4 K/mm3 (0.0-0.8) 07/13/20 08:31 Eosinophils # (Manual) 0.0 K/mm3 (0.0-0.4) 07/13/20 08:31 Basophils # (Manual) 0.0 K/mm3 (0.0-0.1) 07/13/20 08:31 Metamyelocytes # 0.0 K/mm3 07/13/20 08:31 Myelocytes # 0.0 K/mm3 07/13/20 08:31 Promyelocytes # 0.0 K/mm3 07/13/20 08:31 Blast Cells # 0.0 K/mm3 07/13/20 08:31 WBC Morphology Not Reportable 07/13/20 08:31 Hypersegmented Neuts Not Reportable 07/13/20 08:31 Hyposegmented Neuts Not Reportable 07/13/20 08:31 Hypogranular Neuts Not Reportable 07/13/20 08:31 Smudge Cells Not Reportable 07/13/20 08:31 Toxic Granulation Not Reportable 07/13/20 08:31 Toxic Vacuolation Not Reportable 07/13/20 08:31 Dohle Bodies Not Reportable 07/13/20 08:31 Pelger-Huet Anomaly Not Reportable 07/13/20 08:31 Jaosn Rods Not Reportable 07/13/20 08:31 Platelet Estimate Consistent w auto 07/13/20 08:31 Clumped Platelets Not Reportable 07/13/20 08:31 Plt Clumps, EDTA Not Reportable 07/13/20 08:31 Large Platelets Not Reportable 07/13/20 08:31 Giant Platelets Not Reportable 07/13/20 08:31 Platelet Satelliting Not Reportable 07/13/20 08:31 Plt Morphology Comment Not Reportable 07/13/20 08:31 RBC Morphology Not Reportable 07/13/20 08:31 Dimorphic RBCs Not Reportable 07/13/20 08:31 Polychromasia Not Reportable 07/13/20 08:31 Hypochromasia Not Reportable 07/13/20 08:31 Poikilocytosis Not Reportable 07/13/20 08:31 Anisocytosis Not Reportable 07/13/20 08:31 Microcytosis Not Reportable 07/13/20 08:31 Macrocytosis Not Reportable 07/13/20 08:31 Spherocytes Not Reportable 07/13/20 08:31 Pappenheimer Bodies Not Reportable 07/13/20 08:31 Sickle Cells Not Reportable 07/13/20 08:31 Target Cells Not Reportable 07/13/20 08:31 Tear Drop Cells Not Reportable 07/13/20 08:31 Ovalocytes Not Reportable 07/13/20 08:31 Stomatocytes Few 07/13/20 08:31 Helmet Cells Not Reportable 07/13/20 08:31 Sinclair-Sunburst Bodies Not Reportable 07/13/20 08:31 Glenn Rings Not Reportable 07/13/20 08:31 Izabella Cells Not Reportable 07/13/20 08:31 Bite Cells Not Reportable 07/13/20 08:31 Crenated Cell Not Reportable 07/13/20 08:31 Elliptocytes Not Reportable 07/13/20 08:31 Acanthocytes (Spur) Not Reportable 07/13/20 08:31 Rouleaux Not Reportable 07/13/20 08:31 Hemoglobin C Crystals Not Reportable 07/13/20 08:31 Schistocytes Not Reportable 07/13/20 08:31 Malaria parasites Not Reportable 07/13/20 08:31 Josue Bodies Not Reportable 07/13/20 08:31 Hem Pathologist Commnt No 07/13/20 08:31 PT 11.8 Sec. (12.2-14.9) L 06/22/20 14:29 INR 0.88 (0.87-1.13) 06/22/20 14:29 APTT 23.5 Sec. (24.2-36.6) L 06/22/20 14:29 D-Dimer 1887.82 ng/mlDDU (0-234) H 05/20/20 08:16 Heparin Anti-Xa Level 0.37 U.I./ml (0.3-0.7) 07/02/20 16:08 ABG pH 7.437 (7.320-7.450) 08/11/20 18:43 POC ABG pCO2 51.0 mmHg (32.0-48.0) H 08/11/20 18:43 ABG pCO2 53.1 mm Hg 07/08/20 Unknown POC ABG pO2 84.9 mmHg (83-108) 08/11/20 18:43 ABG pO2 75.3 mm Hg (80.0-90.0) L 07/08/20 Unknown POC ABG HCO3 33.6 08/11/20 18:43 ABG HCO3 34.3 mmol/L (20.0-26.0) H 07/08/20 Unknown ABG O2 Saturation 96.5 % (95.0-99.0) 07/08/20 Unknown ABG O2 Content 13.5 (0.0-44) 07/08/20 Unknown POC ABG Base Excess 7.9 08/11/20 18:43 ABG Base Excess 8.7 mmol/L (-2.0-3.0) H 07/08/20 Unknown ABG Hemoglobin 13.8 (12.0-17.5) 08/11/20 18:43 ABG Oxyhemoglobin 94.6 (94-98) 08/11/20 18:43 ABG Carboxyhemoglobin 2.4 % (0.0-5.0) 07/08/20 Unknown ABG Methemoglobin 0.3 (0.0-1.5) 08/11/20 18:43 ABG Sodium 138.0 mmol/L (136.0-145.0) 08/11/20 18:43 ABG Potassium 3.4 mmol/L (3.40-4.50) 08/11/20 18:43 ABG Chloride 99.0 mmol/L (98-107) 08/11/20 18:43 ABG Glucose 149 mg/dL (65-95) H 08/11/20 18:43 Oxyhemoglobin 93.7 % (95.0-99.0) L 07/08/20 Unknown Carboxyhemoglobin 1.2 (0.5-1.5) 08/11/20 18:43 FiO2 50.0 08/11/20 18:43 Sodium 143 mmol/L (137-145) 08/22/20 05:11 Potassium 3.8 mmol/L (3.6-5.0) 08/23/20 04:39 Chloride 99.8 mmol/L (98-107) 08/22/20 05:11 Carbon Dioxide 31 mmol/L (22-30) H 08/22/20 05:11 Anion Gap 16 mmol/L 08/22/20 05:11 BUN 15 mg/dL (9-20) 08/22/20 05:11 Creatinine 0.6 mg/dL (0.8-1.3) L 08/22/20 05:11 Estimated GFR > 60 ml/min 08/22/20 05:11 BUN/Creatinine Ratio 25 % 08/22/20 05:11 Glucose 95 mg/dL (75-100) 08/22/20 05:11 POC Glucose 115 mg/dL (70-105) H 08/27/20 21:40 Lactic Acid 0.80 mmol/L (0.7-2.0) 07/13/20 15:45 Calcium 10.1 mg/dL (8.4-10.2) 08/22/20 05:11 Phosphorus 5.10 mg/dL (2.5-4.5) H 08/22/20 05:11 Magnesium 1.90 mg/dL (1.7-2.3) 08/23/20 04:39 Ferritin 1496.0 ng/mL (30.0-300.0) H 06/14/20 11:50 Total Bilirubin 0.30 mg/dL (0.1-1.2) 08/02/20 05:55 Direct Bilirubin 0.6 mg/dL (0-0.2) H 05/11/20 07:30 Indirect Bilirubin 0.9 mg/dL 05/11/20 07:30 AST 37 units/L (5-40) 08/02/20 05:55 ALT 118 units/L (7-56) H 08/02/20 05:55 Alkaline Phosphatase 88 units/L (35-129) 08/02/20 05:55 Lactate Dehydrogenase 705 units/L (91-180) H 05/20/20 08:16 Troponin T 0.015 ng/mL (0.00-0.029) 07/07/20 10:00 C-Reactive Protein 3.10 mg/dL (0.00-1.30) H 05/20/20 08:16 Total Protein 6.4 g/dL (6.3-8.2) 08/02/20 05:55 Albumin 3.3 g/dL (3.9-5) L 08/02/20 05:55 Albumin/Globulin Ratio 1.1 % 08/02/20 05:55 Triglycerides 452 mg/dL (2-149) H 06/30/20 07:00 Lipase 86 units/L (13-60) H 06/29/20 09:36 Procalcitonin 2.15 ng/mL (<0.15) 07/15/20 05:31 Arterial Blood Glucose 149 mg/dL (65-95) H 08/11/20 18:43 Arterial Blood Ionized Calcium 4.8 mg/dL (4.6-5.3) 08/11/20 18:43 Urine Color Fauzia (Yellow) 05/10/20 Unknown Urine Turbidity Clear (Clear) 05/10/20 Unknown Urine pH 5.0 (5.0-7.0) 05/10/20 Unknown Ur Specific [place] 1.019 (1.003-1.030) 05/10/20 Unknown Urine Protein 100 mg/dl mg/dL (Negative) 05/10/20 Unknown Urine Glucose (UA) Neg mg/dL (Negative) 05/10/20 Unknown Urine Ketones Neg mg/dL (Negative) 05/10/20 Unknown Urine Blood Lg (Negative) 05/10/20 Unknown Urine Nitrite Neg (Negative) 05/10/20 Unknown Urine Bilirubin Neg (Negative) 05/10/20 Unknown Urine Urobilinogen 2.0 mg/dL (<2.0) 05/10/20 Unknown Ur Leukocyte Esterase Neg (Negative) 05/10/20 Unknown Urine WBC (Auto) 11.0 /HPF (0.0-6.0) H 05/10/20 Unknown Urine RBC (Auto) 2.0 /HPF (0.0-6.0) 05/10/20 Unknown U Epithel Cells (Auto) 1.0 /HPF (0-13.0) 05/10/20 Unknown Urine Bacteria (Auto) 1+ /HPF (Negative) 05/10/20 Unknown Urine Mucus Few /HPF 05/10/20 Unknown Plasma/Serum Alcohol < 0.01 % (0-0.07) 05/09/20 14:20 Coronavirus (PCR) Negative (Negative) 08/25/20 10:09 Hepatitis A Ab Total Nonreactive (Nonreactive) 07/09/20 Unknown Hep B Core Total Ab Nonreactive (Nonreactive) 07/09/20 Unknown Hepatitis C RNA Quant See scanned result 07/09/20 Unknown SARS-CoV-2 IgG Ab Reactive (NonReactive) A 05/11/20 07:30 Blood Type B POSITIVE 06/21/20 14:18 Antibody Screen Negative 06/21/20 14:18 Crossmatch See Detail 06/21/20 14:18 - Diagnostic Impressions Diagnostic Impressions: Echocardiogram 05/20/20 13:02 Transthoracic Echocardiogram Indication: CHF BP: 97/73 Conclusions *The study quality is technically very difficult and limited. *The left ventricular chamber size, wall thickness and systolic function are within normal limits. There are no wall motion abnormalities observed. Ejection fraction is normal. *The estimated ejection fraction is 60-65%. *The pericardium appears normal. Findings Procedure Info: The study quality is technically difficult. Left Ventricle: The left ventricular chamber size, wall thickness and systolic function are within normal limits. There are no wall motion abnormalities observed. Ejection fraction is normal. The estimated ejection fraction is 60-65%. Abnormal left ventricular diastolic filling is observed, consistent with impaired relaxation. Left Atrium: The left atrium is normal in size with no visual thrombus identified. Right Ventricle: The right ventricle is not well visualized. Right Atrium: The right atrium is not well visualized. Aortic Valve: The aortic valve is trileaflet. The leaflets are thin with normal excursion. There is no aortic stenosis or regurgitation present. Mitral Valve: The mitral valve appears normal in structure and function. Tricuspid Valve: The tricuspid valve appears normal in structure and function. Unable to estimate the right ventricular systolic pressure. Pulmonic Valve: The pulmonic valve is not well visualized. There is no evidence of pulmonic regurgitation. There is no pulmonic stenosis. Pericardium: The pericardium appears normal. Pulmonary Artery: The main pulmonary artery is not well visualized. Venous: The inferior vena cava appears normal in size. Measurements Chambers 2D Name Value Normal Range IVSd (2D) 0.83 cm (0.6 - 1.1) LVPWd (2D) 0.83 cm (0.6 - 1.1) LVIDd (2D) 3.88 cm (3.7 - 5.6) LVIDs (2D) 2.46 cm (2 - 3.8) LV FS (2D) 36.52 % - EF Teichholz (2D) 66.97 % - Ao root diameter (2D) 3.47 cm (2 - 3.7) Volumes/Mass Name Value Normal Range LA ESV SP 4CH (A/L) 22.4 ml - LA ESV SP 2CH (A/L) 22.89 ml - LA ESV BP (A/L) 23.06 ml - LA ESV SP 4CH (MOD) 21.09 ml - LA ESV SP 2CH (MOD) 22.44 ml - Diastolic/Systolic Function Name Value Normal Range MV E-wave Vmax 0.48 m/sec - MV deceleration time 156.3 msec - MV A-wave Vmax 0.59 m/sec - MV E:A ratio 0.81 ratio - Aortic Valve Name Value Normal Range AV Vmax 0.97 m/sec - AV VTI 14.49 cm - AV peak gradient 3.73 mmHg - AV mean gradient 1.89 mmHg - LVOT diameter 2.09 cm - LVOT Vmax 0.72 m/sec - LVOT VTI 10.21 cm - LVOT peak gradient 2.05 mmHg - LVOT mean gradient 1.03 mmHg - SV LVOT 35.17 ml - INNA (continuity Vmax) 2.55 cm2 - INNA (continuity VTI) 2.43 cm2 - Tricuspid Valve Name Value Normal Range TV E-wave Vmax 0.37 m/sec - Pulmonic Valve/Qp:Qs Name Value Normal Range PV Vmax 0.72 m/sec - PV peak gradient 2.06 mmHg - RVOT Vmax 0.85 m/sec - RVOT VTI 9.89 cm - RVOT peak gradient 2.9 mmHg - PV acceleration time 72.31 msec - Cantor/IV: Voiding Method Urinal IV Catheter Type [Right Wrist] INT / Saline Lock IV Catheter Type [Right Upper Peripheral IV arm] IV Catheter Type [Right CVL Internal Jugular] IV Catheter Type [Right Peripheral IV Forearm] IV Catheter Type [Left Forearm INT / Saline Lock ] IV Catheter Type [Left Wrist] INT / Saline Lock IV Catheter Type [Right Hand] INT / Saline Lock IV Catheter Type [Left Hand] INT / Saline Lock IV Catheter Type [Left Peripheral IV Antecubital] Active Medications - Current Medications Current Medications: Generic Name Dose Route Start Last Admin Trade Name Freq PRN Reason Stop Dose Admin Acetaminophen 650 mg 08/07/20 10:06 08/23/20 22:37 Acetaminophen 325 Mg Tab PO 650 mg Q4H PRN Administration Pain, Mild (1-3) Bisacodyl 10 mg 07/14/20 11:00 Bisacodyl 10 Mg Rect Supp UT BID PRN Laxative Effect Enoxaparin Sodium 40 mg 07/29/20 22:00 08/27/20 22:46 Enoxaparin 40 Mg/0.4 Ml Inj SUB-Q 40 mg QDAY@2200 [facility] Administration Protocol Folic Acid 1 mg 05/09/20 15:36 08/27/20 09:37 Folic Acid 1 Mg Tab PO 1 mg QDAY DESIRE Administration Guaifenesin 600 mg 07/19/20 23:00 08/27/20 22:49 Guaifenesin Er 600 Mg Tab PO 600 mg BID [facility] Administration Hydrophilic Ointment 1 applic 05/21/20 20:33 Lip Therapy Vaseline TP Q2HR PRN Dry Lips Insulin Human Lispro 0 unit 07/31/20 07:30 08/27/20 22:49 Insulin Lispro 100 Unit/Ml SUB-Q Not Given ACHS [facility] Protocol Metoprolol Tartrate 5 mg 07/02/20 17:17 08/23/20 13:57 Metoprolol Tartrate 5 Mg/5 Ml Inj IV 5 mg Q6HR PRN Administration Tachyarrhythmias Metoprolol Tartrate 25 mg 08/12/20 12:00 08/27/20 22:46 Metoprolol Tartrate 25 Mg Tab PO 25 mg BID DESIRE Administration Multi-Ingred Cream/Lotion/Oil/Oint 1 applic 05/21/20 20:33 Mineral Oil/Petrolatum, White Ophth Oint 3.5 Gm OU Q4HR PRN Dry Eye(s) Olanzapine 5 mg 07/17/20 22:00 08/27/20 22:46 Olanzapine 5 Mg Tab PO 5 mg QHS DESIRE Administration Ondansetron HCl 4 mg 08/23/20 13:10 Ondansetron 4 Mg/2 Ml Inj IV Q4H PRN Nausea And Vomiting Phenobarbital 32.4 mg 07/04/20 22:00 08/27/20 22:46 Phenobarbital 32.4 Mg Tab PO 32.4 mg BID DESIRE Administration Pseudoephedrine/Acetam/Chlorphenir 10 ml 08/18/20 15:45 08/23/20 22:37 Guaifenesin/Codeine 100-10mg Oral Liqd 5 Ml PO 10 ml Q4H PRN Administration Cough Quetiapine Fumarate 200 mg 07/16/20 10:00 08/27/20 09:37 Quetiapine 200 Mg Tab PO 200 mg QAM DESIRE Administration Senna 17.2 mg 07/14/20 11:00 08/03/20 16:46 Sennosides 8.6 Mg Tab PO 8.6 mg BID PRN Administration Laxative Effect Nutrition/Malnutrition Assess - Dietary Evaluation Nutrition/Malnutrition Findings: Nutrition Notes Start: 05/17/20 14:10 Freq: Status: Active Protocol: Document 08/25/20 11:44 CW (Rec: 08/25/20 11:59 CW [id number]) Nutrition Notes Initial or Follow up Reassessment Current Diagnosis Acute Kidney Injury,Decubitus( Pressure Ulcer),Sepsis, Respiratory Failure Other Pertinent Diagnosis Bilat pneu,Colonic pseudoobstuction, EtOH dependence Current Diet Regular diet Labs/Tests Reviewed Pertinent Medications Humalog Height 6 ft Weight 101.2 kg Pepin Body Weight (kg) 80.90 BMI 30.2 Weight change and time frame Weight gain noted Weight Status Obese Subjective/Other Information F/U for ONS and intakes. Pt states drinking and eating 100 % of meals and ONS. Denies N/V /D/C. Weight is trending upwards. Will continue ONS despite weight gain for needed protein for wound healing. Adm weight on 07/27 noted as 96 .1kg, indicating a 5% weight gain x 30 days. 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 Pt awaitign transfer to rehab facility Diagnosis Progress(for reassessment Continues documentation) #2 Nutrition Diagnosis Increased nutrient needs ( specify in comment below) Diagnosis Progress(for reassessment Continues documentation) Is patient on ventilator? No Is Patient Ambulatory and/or Out of Bed No REE-([place]-confined to bed) [phone] Kcal/Kg value to use for calculation 20 Approximate Energy Requirements Using 2023 kcal/Kg Calculation Used for Recommendations Kcal/kg Additional Notes Protein: 110-137 g (1.2-1.5 g/ kg AdBW 91.05 kg) Fluid: 1ml/kcal Nutrition Intervention Change Diet Order: Continue diet Add Supplement/Snack (indicate name/kcal Ensure High Protein daily /protein ) Sammy BID Provides kCal: 350 Provides Protein (gm) 21 Goal #1 Meet at least 75% protein and energy needs via PO Goal #2 ONS tolerance Goal #3 Intake of Sammy BID Anticipated Discharge Needs: Regular dier, Sammy BID and Ensure High Protein until wound healed Follow-Up By: 09/01/20 Additional Comments F/u stable intakes, ONS tolerance
[2020-08-28] MEDS: guaiFENesin ER 600 MG TAB PO SCH ×2 (10:20→22:52)
[2020-08-28] MEDS: METOPROLOL TARTRATE 25 MG TAB PO SCH ×2 (10:20→22:52)
[2020-08-28] MEDS: QUEtiapine 200 MG TAB PO SCH (10:21)
[2020-08-28] MEDS: PHENobarbital 32.4 MG TAB PO SCH ×2 (10:21→22:52)
[2020-08-28] MEDS: FOLIC ACID 1 MG TAB PO SCH (10:21)
[2020-08-28] MEDS: ENOXAPARIN 40 MG/0.4 ML INJ SUB-Q SCH (22:51)
[2020-08-28] MEDS: guaiFENesin/CODEINE 100-10MG ORAL LIQD 5 ML PO PRN (22:51)
--- NOTE | 2020-08-29 08:04 | Progress Note ---
Assessment and Plan Assessment and plan: - Acute hypoxemic respiratory failure; Patient intubated and on vent support weaning protocol - need tach placement --Severe COVID-19 bilateral pneumonia Coronavirus protocol: IV steroid therapy, completed remdesivir, isolation precautions, contact precautions, prone positioning while in bed, pulmonary toilet. ID following SARS CoV-2 IgG positive patient is NOT a candidate for COVID convalescent plasma Covid test came negative on 06/30/20 --Severe sepsis/septic shock, due to COVID 19 PNA cont pressors as needed -- Acute kidney injury (SEN) , likely vasomotor nephropathy Resolved, IV fluids, avoid nephrotoxins --Acute on chronic anemia Guaiac test positive GI evaluation PPIs Continue to monitor -- Elevated liver function tests Suspected secondary to alcoholic liver disease. Supportive care, alcohol cessation, patient counseled. --Colonic pseudoobstruction likely from acute on chronic illness GI evaluation -recommend stool softeners Serial abdominal x-rays Monitor electrolytes and replete --History of alcohol dependence, status post CIWA protocol along with thiamine folic acid and multivitamin --right pneumothorax, s/p right chest tube placed on 06/21/20 Patient will need chest tube until patient is extubated -- DVT prophylaxis On therapeutic Lovenox The high probability of a clinically significant, sudden or life threatening deterioration of the [respiratory] system(s) required my full and direct attention, intervention and personal management. The aggregate critical care time was [31] minutes. This time is in addition to time spent performing reported procedures but includes the following: [x] Data Review and interpretation [x] Patient assessment and monitoring of vital signs [x] Documentation [x] Medication orders and management Brief History: 50 YO Male with Obesity, ETOH Dependence presents to ED for evaluation for shortness of breath, generalized weakness, fatigue, malaise, body aches, decreased exercise tolerance over the past 5 days. EMS was notified and upon arrival the patient was found to be in distress with a pulse oximetry of 76% on room air as well as fever to 103 F. In the ER chest x-ray and was found to have bilateral pneumonia. Patient admitted to medical floor and initiated on pneumonia protocol as well as COVID-19 protocol. Patient reports being diagnosed with coronavirus 2 days ago before admission. 05/10- 05/17: follow inflammatory markers, consulted ID/pulmonary. patient on high flow O2 05/18/20; patient feels slightly better still hypoxic, requiring continuous high flow oxygen and BiPAP Respiratory team trying to wean 05/19/20; patient is severely hypoxemic requiring continuous BiPAP today, complains of generalized weakness Trying to wean off high flow oxygen, patient is in isolation 05/20/2020; patient remains on high flow oxygen/BiPAP/100% nonrebreather. Still is hypoxemic Has sinus tachycardia patient in mild distress Wean off high flow oxygen as tolerated, pulmonary critical following 05/21/20; patient is critically ill, on continuous BiPAP remains hypoxemic in mild distress. Patient has severe Covid Pneumonia with persistent hypoxemia and poor prognosis. 05/22/2020: Patient was intubated last night because of persistent hypoxemia. 05/23-06/15: Remains on ventilatory support, unable to wean off from the vent. 06/16/2020. Patient currently on mechanical ventilation with AC mode rate 30, tidal volume 500, FiO2 70% and PEEP of 16. Continue anticoagulation with Lovenox 110 milligrams subcu every 12 hours. Wean sedation of fentanyl/Versed as needed. Currently with IV steroids of Solu-Medrol 40 mg IV every 12 hours. Patient will likely need tracheostomy per pulmonary recommendations. Continue pressors to maintain MAP > 65. 06/17/2020. Patient currently on mechanical ventilation with AC mode rate 30, tidal volume 500, FiO2 65% and PEEP of 16. Continue anticoagulation with Lovenox 110 milligrams subcu every 12 hours. Wean sedation of fentanyl/Versed as needed. Currently with IV steroids of Solu-Medrol 40 mg IV every 12 hours. Patient will likely need tracheostomy per pulmonary recommendations. 06/18/2020. Patient currently on mechanical ventilation with AC mode rate 30, tidal volume 500, FiO2 70% and PEEP of 16. Continue Lovenox for anticoagulation and fentanyl/Versed for sedation. Wean steroids per pulmonary. CIWA protocol initiated for history of EtOH dependence 06/19/2020. Patient currently on mechanical ventilation with AC mode rate 30, tidal volume 500, FiO2 60% and PEEP of 16. Wean FiO2 as tolerated per protocol. Continue Lovenox for anticoagulation and fentanyl/Versed for sedation. Wean steroids per pulmonary. CIWA protocol initiated for history of EtOH dependence 06/20/2020. Patient currently on mechanical ventilation with AC mode rate 30, tidal volume 500, FiO2 60% and PEEP of 16. Wean FiO2 as tolerated, SBT per protocol. Continue Lovenox for anticoagulation and fentanyl/Versed for sedation. Wean steroids per pulmonary. Continue pressors to maintain MAP > 65 mmHg. Patient remains on ETT. Consider tracheostomy placement once oxygenation is better per pulmonary. CIWA protocol initiated for history of EtOH dependence. 06/21/2020. Patient with a small apical pneumothorax discovered yesterday. General surgery consulted and consider placing chest tube. Follow-up serial chest x-ray patient currently on mechanical ventilation with AC mode rate 30, tidal volume 500, FiO2 60% and PEEP of 16. Wean FiO2 as tolerated, SBT per protocol. Continue Lovenox for anticoagulation and fentanyl/Versed for sedation. Wean steroids per pulmonary. Continue pressors to maintain MAP > 65 mmHg. Patient remains on ETT. Consider tracheostomy placement once oxygenation is better per pulmonary. CIWA protocol initiated for history of EtOH dependence. 06/22. Status post right chest tube placement yesterday. Remains mechanically ventilated on pressors. Examination today shows slightly distended abdomen. KUB ordered. Awaiting stool guaiac. Plan to get a GI evaluation. 06/23. Has colonic distention on the x-ray. Discussed with GI-advised stool softeners for now and close monitoring. No indication for colonic decompression at this time. Guaiac test is positive. No emergent indication for endoscopy at this point as per GI. Continue to monitor hemoglobin. 06/24. Remains intubated. On pressors. GI following for positive guaiac stool and anemia, and colonic distention. 06/25. Repeat abdominal xray ordered. Remains on mechanical ventilation. 06/26. Abdominal xray - resolved colonic distension. Mechanically ventilated. 06/27. Plan for trach and PEG. 06/28: Awaiting trach and Peg. Some Bm REPORTED, will continue to monitor 06/29: Resume care, patient remains on ventilator support, waiting on trach and PEG placement. BM reported by the RN, continue to monitor. 06/30: Unable to wean off from vent, patient will need trach and PEG. Continue supportive care, tolerating tube feed. Monitor CBC and BMP 07/01: Continue mechanical ventilation, tube feeding as tolerated. Sedation as needed per mechanical ventilation protocol. Waiting on trach and PEG placement. 07/02: Continue current management, tube feeding, monitor CBC and BMP. Need tra ch and PEG-waiting on scheduling. Pulmonary critical care following. 07/03: wean off vent as tolerated. follow clinically. need trach and PEG 07/04: unable to wean. CT head ordered to assess for any changes but too unstable to do the test. need trach and PEG. 07/05: plan for trach/peg - GS following. off pressor - on midodrine. renal function stable. intubated, but alert and can follow minor commend. discussed with daughter by phone. 07/06/2020; Dr. Márquez discussed with patient's daughter about trach but the daughter needs time to think about it. Patient was intubated and alert, FiO2 40 %. 07/07/2020; patient was intubated and alert, FiO2 40%. Patient was diaphoretic, tachycardic, and EKG was done which was abnormal for me. I called director apparel Dr Louis saw the EKG and said it is normal EKG, and the findings are abnormal. 07/08/2020; no significant change, patient is intubated and alert. 08/08/2020; patient is stable for discharge to inpatient rehab unit, pending insurance approval 08/09/2020; manager case reports that insurance has not approved inpatient rehab placement for this patient Will evaluate for home oxygen, set up home oxygen if eligible, and plan discharge home with home health when patient is hemodynamically stable 08/10/2020; patient continues to have persistent tachycardia, and persistent hypoxia requiring 4 L of nasal cannula oxygen As well as intermittent BiPAP, continue current management 08/11/2020; patient continues to require oxygen and intermittent BiPAP, awaiting IRU placement Versus home with home health and home oxygen, DC planning per case management 08/12/2020; awaiting IRU placement versus home with home health on home oxygen 08/13/2020 through 08/14/2020 Patient awaiting transfer placement 08/14/2020 through 08/16/2020 Patient waiting for rehab placement Discussed with case management today again 08/28/2020; patient was alert and oriented, he said he has generalized weakness, but able to stand. He is on 3 L of oxygen and doing well. Pending insurance authorization to rehab placement. Case management to following. 08/29/2020; patient was alert and oriented, he said he has generalized weakness, but able to stand. He is on 3 L of oxygen and doing well. Pending insurance authorization to rehab placement. Case management to following. History Interval history: Patient was seen and evaluated this morning Patient was alert and oriented Patient is on 3 L of intranasal oxygen Hospitalist Physical - Physical exam Narrative exam: Not in cardiopulmonary distress. On 3 L of oxygen The patient is obese. Vital signs as documented. Head exam is unremarkable. No scleral icterus . Neck is without jugular venous distension, thyromegaly, or carotid bruits. Lungs are clear to auscultation. Cardiac exam reveals regular rate and Rhythm. Abdominal exam reveals normal bowel sounds, nontender, no organomegaly. Extremities are nonedematous and both femoral and pedal pulses are normal. [employer] ENGLISH T[employer]OR: Alert and oriented 3. No focal weakness. - Constitutional Vitals: Temp Pulse Resp BP Pulse Ox 98.6 F 88 18 101/66 98 08/29/20 05:26 08/29/20 05:26 08/29/20 05:26 08/29/20 05:26 08/29/20 05:26 General appearance: Present: no acute distress, well-nourished HEART Score - HEART Score Troponin: Troponin T 0.015 ng/mL (0.00-0.029) 07/07/20 10:00 Results - Labs CBC & Chem 7: 08/22/20 05:11 08/23/20 04:39 Labs: Laboratory Last Values WBC 10.6 K/mm3 (4.5-11.0) 08/22/20 05:11 RBC 4.13 M/mm3 (3.65-5.03) 08/22/20 05:11 Hgb 12.9 gm/dl (11.8-15.2) 08/22/20 05:11 Hct 39.1 % (35.5-45.6) 08/22/20 05:11 MCV 95 fl (84-94) H 08/22/20 05:11 MCH 31 pg (28-32) 08/22/20 05:11 MCHC 33 % (32-34) 08/22/20 05:11 RDW 16.4 % (13.2-15.2) H 08/22/20 05:11 Plt Count 331 K/mm3 (140-440) 08/22/20 05:11 Lymph % (Auto) 18.6 % (13.4-35.0) 08/22/20 05:11 [place] % (Auto) 9.7 % (0.0-7.3) H 08/22/20 05:11 Eos % (Auto) 3.4 % (0.0-4.3) 08/22/20 05:11 Baso % (Auto) 0.5 % (0.0-1.8) 08/22/20 05:11 Lymph # (Auto) 2.0 K/mm3 (1.2-5.4) 08/22/20 05:11 [place] # (Auto) 1.0 K/mm3 (0.0-0.8) H 08/22/20 05:11 Eos # (Auto) 0.4 K/mm3 (0.0-0.4) 08/22/20 05:11 Baso # (Auto) 0.0 K/mm3 (0.0-0.1) 08/22/20 05:11 Add Manual Diff Complete 07/13/20 08:31 Total Counted 100 07/13/20 08:31 Seg Neutrophils % 67.8 % (40.0-70.0) 08/22/20 05:11 Seg Neuts % (Manual) 96.0 % (40.0-70.0) H 07/13/20 08:31 Band Neutrophils % 0 % 07/13/20 08:31 Lymphocytes % (Manual) 2.0 % (13.4-35.0) L 07/13/20 08:31 Reactive Lymphs % (Man) 0 % 07/13/20 08:31 Monocytes % (Manual) 2.0 % (0.0-7.3) 07/13/20 08:31 Eosinophils % (Manual) 0 % (0.0-4.3) 07/13/20 08:31 Basophils % (Manual) 0 % (0.0-1.8) 07/13/20 08:31 Metamyelocytes % 0 % 07/13/20 08:31 Myelocytes % 0 % 07/13/20 08:31 Promyelocytes % 0 % 07/13/20 08:31 Blast Cells % 0 % 07/13/20 08:31 Nucleated RBC % Not Reportable 07/13/20 08:31 Seg Neutrophils # 7.2 K/mm3 (1.8-7.7) 08/22/20 05:11 Seg Neutrophils # Man 20.4 K/mm3 (1.8-7.7) H 07/13/20 08:31 Band Neutrophils # 0.0 K/mm3 07/13/20 08:31 Lymphocytes # (Manual) 0.4 K/mm3 (1.2-5.4) L 07/13/20 08:31 Abs React Lymphs (Man) 0.0 K/mm3 07/13/20 08:31 Monocytes # (Manual) 0.4 K/mm3 (0.0-0.8) 07/13/20 08:31 Eosinophils # (Manual) 0.0 K/mm3 (0.0-0.4) 07/13/20 08:31 Basophils # (Manual) 0.0 K/mm3 (0.0-0.1) 07/13/20 08:31 Metamyelocytes # 0.0 K/mm3 07/13/20 08:31 Myelocytes # 0.0 K/mm3 07/13/20 08:31 Promyelocytes # 0.0 K/mm3 07/13/20 08:31 Blast Cells # 0.0 K/mm3 07/13/20 08:31 WBC Morphology Not Reportable 07/13/20 08:31 Hypersegmented Neuts Not Reportable 07/13/20 08:31 Hyposegmented Neuts Not Reportable 07/13/20 08:31 Hypogranular Neuts Not Reportable 07/13/20 08:31 Smudge Cells Not Reportable 07/13/20 08:31 Toxic Granulation Not Reportable 07/13/20 08:31 Toxic Vacuolation Not Reportable 07/13/20 08:31 Dohle Bodies Not Reportable 07/13/20 08:31 Pelger-Huet Anomaly Not Reportable 07/13/20 08:31 Jason Rods Not Reportable 07/13/20 08:31 Platelet Estimate Consistent w auto 07/13/20 08:31 Clumped Platelets Not Reportable 07/13/20 08:31 Plt Clumps, EDTA Not Reportable 07/13/20 08:31 Large Platelets Not Reportable 07/13/20 08:31 Giant Platelets Not Reportable 07/13/20 08:31 Platelet Satelliting Not Reportable 07/13/20 08:31 Plt Morphology Comment Not Reportable 07/13/20 08:31 RBC Morphology Not Reportable 07/13/20 08:31 Dimorphic RBCs Not Reportable 07/13/20 08:31 Polychromasia Not Reportable 07/13/20 08:31 Hypochromasia Not Reportable 07/13/20 08:31 Poikilocytosis Not Reportable 07/13/20 08:31 Anisocytosis Not Reportable 07/13/20 08:31 Microcytosis Not Reportable 07/13/20 08:31 Macrocytosis Not Reportable 07/13/20 08:31 Spherocytes Not Reportable 07/13/20 08:31 Pappenheimer Bodies Not Reportable 07/13/20 08:31 Sickle Cells Not Reportable 07/13/20 08:31 Target Cells Not Reportable 07/13/20 08:31 Tear Drop Cells Not Reportable 07/13/20 08:31 Ovalocytes Not Reportable 07/13/20 08:31 Stomatocytes Few 07/13/20 08:31 Helmet Cells Not Reportable 07/13/20 08:31 Sinclair-Ponshewaing Bodies Not Reportable 07/13/20 08:31 [place] Rings Not Reportable 07/13/20 08:31 Izabella Cells Not Reportable 07/13/20 08:31 Bite Cells Not Reportable 07/13/20 08:31 Crenated Cell Not Reportable 07/13/20 08:31 Elliptocytes Not Reportable 07/13/20 08:31 Acanthocytes (Spur) Not Reportable 07/13/20 08:31 Rouleaux Not Reportable 07/13/20 08:31 Hemoglobin C Crystals Not Reportable 07/13/20 08:31 Schistocytes Not Reportable 07/13/20 08:31 Malaria parasites Not Reportable 07/13/20 08:31 Josue Bodies Not Reportable 07/13/20 08:31 Hem Pathologist Commnt No 07/13/20 08:31 PT 11.8 Sec. (12.2-14.9) L 06/22/20 14:29 INR 0.88 (0.87-1.13) 06/22/20 14:29 APTT 23.5 Sec. (24.2-36.6) L 06/22/20 14:29 D-Dimer 1887.82 ng/mlDDU (0-234) H 05/20/20 08:16 Heparin Anti-Xa Level 0.37 U.I./ml (0.3-0.7) 07/02/20 16:08 ABG pH 7.437 (7.320-7.450) 08/11/20 18:43 POC ABG pCO2 51.0 mmHg (32.0-48.0) H 08/11/20 18:43 ABG pCO2 53.1 mm Hg 07/08/20 Unknown POC ABG pO2 84.9 mmHg (83-108) 08/11/20 18:43 ABG pO2 75.3 mm Hg (80.0-90.0) L 07/08/20 Unknown POC ABG HCO3 33.6 08/11/20 18:43 ABG HCO3 34.3 mmol/L (20.0-26.0) H 07/08/20 Unknown ABG O2 Saturation 96.5 % (95.0-99.0) 07/08/20 Unknown ABG O2 Content 13.5 (0.0-44) 07/08/20 Unknown POC ABG Base Excess 7.9 08/11/20 18:43 ABG Base Excess 8.7 mmol/L (-2.0-3.0) H 07/08/20 Unknown ABG Hemoglobin 13.8 (12.0-17.5) 08/11/20 18:43 ABG Oxyhemoglobin 94.6 (94-98) 08/11/20 18:43 ABG Carboxyhemoglobin 2.4 % (0.0-5.0) 07/08/20 Unknown ABG Methemoglobin 0.3 (0.0-1.5) 08/11/20 18:43 ABG Sodium 138.0 mmol/L (136.0-145.0) 08/11/20 18:43 ABG Potassium 3.4 mmol/L (3.40-4.50) 08/11/20 18:43 ABG Chloride 99.0 mmol/L (98-107) 08/11/20 18:43 ABG Glucose 149 mg/dL (65-95) H 08/11/20 18:43 Oxyhemoglobin 93.7 % (95.0-99.0) L 07/08/20 Unknown Carboxyhemoglobin 1.2 (0.5-1.5) 08/11/20 18:43 FiO2 50.0 08/11/20 18:43 Sodium 143 mmol/L (137-145) 08/22/20 05:11 Potassium 3.8 mmol/L (3.6-5.0) 08/23/20 04:39 Chloride 99.8 mmol/L (98-107) 08/22/20 05:11 Carbon Dioxide 31 mmol/L (22-30) H 08/22/20 05:11 Anion Gap 16 mmol/L 08/22/20 05:11 BUN 15 mg/dL (9-20) 08/22/20 05:11 Creatinine 0.6 mg/dL (0.8-1.3) L 08/22/20 05:11 Estimated GFR > 60 ml/min 08/22/20 05:11 BUN/Creatinine Ratio 25 % 08/22/20 05:11 Glucose 95 mg/dL (75-100) 08/22/20 05:11 POC Glucose 107 mg/dL (70-105) H 08/28/20 20:46 Lactic Acid 0.80 mmol/L (0.7-2.0) 07/13/20 15:45 Calcium 10.1 mg/dL (8.4-10.2) 08/22/20 05:11 Phosphorus 5.10 mg/dL (2.5-4.5) H 08/22/20 05:11 Magnesium 1.90 mg/dL (1.7-2.3) 08/23/20 04:39 Ferritin 1496.0 ng/mL (30.0-300.0) H 06/14/20 11:50 Total Bilirubin 0.30 mg/dL (0.1-1.2) 08/02/20 05:55 Direct Bilirubin 0.6 mg/dL (0-0.2) H 05/11/20 07:30 Indirect Bilirubin 0.9 mg/dL 05/11/20 07:30 AST 37 units/L (5-40) 08/02/20 05:55 ALT 118 units/L (7-56) H 08/02/20 05:55 Alkaline Phosphatase 88 units/L (35-129) 08/02/20 05:55 Lactate Dehydrogenase 705 units/L (91-180) H 05/20/20 08:16 Troponin T 0.015 ng/mL (0.00-0.029) 07/07/20 10:00 C-Reactive Protein 3.10 mg/dL (0.00-1.30) H 05/20/20 08:16 Total Protein 6.4 g/dL (6.3-8.2) 08/02/20 05:55 Albumin 3.3 g/dL (3.9-5) L 08/02/20 05:55 Albumin/Globulin Ratio 1.1 % 08/02/20 05:55 Triglycerides 452 mg/dL (2-149) H 06/30/20 07:00 Lipase 86 units/L (13-60) H 06/29/20 09:36 Procalcitonin 2.15 ng/mL (<0.15) 07/15/20 05:31 Arterial Blood Glucose 149 mg/dL (65-95) H 08/11/20 18:43 Arterial Blood Ionized Calcium 4.8 mg/dL (4.6-5.3) 08/11/20 18:43 Urine Color Fauzia (Yellow) 05/10/20 Unknown Urine Turbidity Clear (Clear) 05/10/20 Unknown Urine pH 5.0 (5.0-7.0) 05/10/20 Unknown Ur Specific [place] 1.019 (1.003-1.030) 05/10/20 Unknown Urine Protein 100 mg/dl mg/dL (Negative) 05/10/20 Unknown Urine Glucose (UA) Neg mg/dL (Negative) 05/10/20 Unknown Urine Ketones Neg mg/dL (Negative) 05/10/20 Unknown Urine Blood Lg (Negative) 05/10/20 Unknown Urine Nitrite Neg (Negative) 05/10/20 Unknown Urine Bilirubin Neg (Negative) 05/10/20 Unknown Urine Urobilinogen 2.0 mg/dL (<2.0) 05/10/20 Unknown Ur Leukocyte Esterase Neg (Negative) 05/10/20 Unknown Urine WBC (Auto) 11.0 /HPF (0.0-6.0) H 05/10/20 Unknown Urine RBC (Auto) 2.0 /HPF (0.0-6.0) 05/10/20 Unknown U Epithel Cells (Auto) 1.0 /HPF (0-13.0) 05/10/20 Unknown Urine Bacteria (Auto) 1+ /HPF (Negative) 05/10/20 Unknown Urine Mucus Few /HPF 05/10/20 Unknown Plasma/Serum Alcohol < 0.01 % (0-0.07) 05/09/20 14:20 Coronavirus (PCR) Negative (Negative) 08/25/20 10:09 Hepatitis A Ab Total Nonreactive (Nonreactive) 07/09/20 Unknown Hep B Core Total Ab Nonreactive (Nonreactive) 07/09/20 Unknown Hepatitis C RNA Quant See scanned result 07/09/20 Unknown SARS-CoV-2 IgG Ab Reactive (NonReactive) A 05/11/20 07:30 Blood Type B POSITIVE 06/21/20 14:18 Antibody Screen Negative 06/21/20 14:18 Crossmatch See Detail 06/21/20 14:18 - Diagnostic Impressions Diagnostic Impressions: Echocardiogram 05/20/20 13:02 Transthoracic Echocardiogram Indication: CHF BP: 97/73 Conclusions *The study quality is technically very difficult and limited. *The left ventricular chamber size, wall thickness and systolic function are within normal limits. There are no wall motion abnormalities observed. Ejection fraction is normal. *The estimated ejection fraction is 60-65%. *The pericardium appears normal. Findings Procedure Info: The study quality is technically difficult. Left Ventricle: The left ventricular chamber size, wall thickness and systolic function are within normal limits. There are no wall motion abnormalities observed. Ejection fraction is normal. The estimated ejection fraction is 60-65%. Abnormal left ventricular diastolic filling is observed, consistent with impaired relaxation. Left Atrium: The left atrium is normal in size with no visual thrombus identified. Right Ventricle: The right ventricle is not well visualized. Right Atrium: The right atrium is not well visualized. Aortic Valve: The aortic valve is trileaflet. The leaflets are thin with normal excursion. There is no aortic stenosis or regurgitation present. Mitral Valve: The mitral valve appears normal in structure and function. Tricuspid Valve: The tricuspid valve appears normal in structure and function. Unable to estimate the right ventricular systolic pressure. Pulmonic Valve: The pulmonic valve is not well visualized. There is no evidence of pulmonic regurgitation. There is no pulmonic stenosis. Pericardium: The pericardium appears normal. Pulmonary Artery: The main pulmonary artery is not well visualized. Venous: The inferior vena cava appears normal in size. Measurements Chambers 2D Name Value Normal Range IVSd (2D) 0.83 cm (0.6 - 1.1) LVPWd (2D) 0.83 cm (0.6 - 1.1) LVIDd (2D) 3.88 cm (3.7 - 5.6) LVIDs (2D) 2.46 cm (2 - 3.8) LV FS (2D) 36.52 % - EF Teichholz (2D) 66.97 % - Ao root diameter (2D) 3.47 cm (2 - 3.7) Volumes/Mass Name Value Normal Range LA ESV SP 4CH (A/L) 22.4 ml - LA ESV SP 2CH (A/L) 22.89 ml - LA ESV BP (A/L) 23.06 ml - LA ESV SP 4CH (MOD) 21.09 ml - LA ESV SP 2CH (MOD) 22.44 ml - Diastolic/Systolic Function Name Value Normal Range MV E-wave Vmax 0.48 m/sec - MV deceleration time 156.3 msec - MV A-wave Vmax 0.59 m/sec - MV E:A ratio 0.81 ratio - Aortic Valve Name Value Normal Range AV Vmax 0.97 m/sec - AV VTI 14.49 cm - AV peak gradient 3.73 mmHg - AV mean gradient 1.89 mmHg - LVOT diameter 2.09 cm - LVOT Vmax 0.72 m/sec - LVOT VTI 10.21 cm - LVOT peak gradient 2.05 mmHg - LVOT mean gradient 1.03 mmHg - SV LVOT 35.17 ml - INNA (continuity Vmax) 2.55 cm2 - INNA (continuity VTI) 2.43 cm2 - Tricuspid Valve Name Value Normal Range TV E-wave Vmax 0.37 m/sec - Pulmonic Valve/Qp:Qs Name Value Normal Range PV Vmax 0.72 m/sec - PV peak gradient 2.06 mmHg - RVOT Vmax 0.85 m/sec - RVOT VTI 9.89 cm - RVOT peak gradient 2.9 mmHg - PV acceleration time 72.31 msec - Cantor/IV: Voiding Method Urinal IV Catheter Type [Right Wrist] INT / Saline Lock IV Catheter Type [Right Upper Peripheral IV arm] IV Catheter Type [Right CVL Internal Jugular] IV Catheter Type [Right Peripheral IV Forearm] IV Catheter Type [Left Forearm INT / Saline Lock ] IV Catheter Type [Left Wrist] INT / Saline Lock IV Catheter Type [Right Hand] INT / Saline Lock IV Catheter Type [Left Hand] INT / Saline Lock IV Catheter Type [Left Peripheral IV Antecubital] Active Medications - Current Medications Current Medications: Generic Name Dose Route Start Last Admin Trade Name Freq PRN Reason Stop Dose Admin Acetaminophen 650 mg 08/07/20 10:06 08/23/20 22:37 Acetaminophen 325 Mg Tab PO 650 mg Q4H PRN Administration Pain, Mild (1-3) Bisacodyl 10 mg 07/14/20 11:00 Bisacodyl 10 Mg Rect Supp AR BID PRN Laxative Effect Enoxaparin Sodium 40 mg 07/29/20 22:00 08/28/20 22:51 Enoxaparin 40 Mg/0.4 Ml Inj SUB-Q 40 mg QDAY@2200 DESIRE Administration Protocol Folic Acid 1 mg 05/09/20 15:36 08/28/20 10:21 Folic Acid 1 Mg Tab PO 1 mg QDAY DESIRE Administration Guaifenesin 600 mg 07/19/20 23:00 08/28/20 22:52 Guaifenesin Er 600 Mg Tab PO 600 mg BID DESIRE Administration Hydrophilic Ointment 1 applic 05/21/20 20:33 Lip Therapy Vaseline TP Q2HR PRN Dry Lips Insulin Human Lispro 0 unit 07/31/20 07:30 08/28/20 22:53 Insulin Lispro 100 Unit/Ml SUB-Q Not Given ACHS [facility] Protocol Metoprolol Tartrate 5 mg 07/02/20 17:17 08/23/20 13:57 Metoprolol Tartrate 5 Mg/5 Ml Inj IV 5 mg Q6HR PRN Administration Tachyarrhythmias Metoprolol Tartrate 25 mg 08/12/20 12:00 08/28/20 22:52 Metoprolol Tartrate 25 Mg Tab PO 25 mg BID DESIRE Administration Multi-Ingred Cream/Lotion/Oil/Oint 1 applic 05/21/20 20:33 Mineral Oil/Petrolatum, White Ophth Oint 3.5 Gm OU Q4HR PRN Dry Eye(s) Olanzapine 5 mg 07/17/20 22:00 08/28/20 22:52 Olanzapine 5 Mg Tab PO 5 mg QHS DESIRE Administration Ondansetron HCl 4 mg 08/23/20 13:10 Ondansetron 4 Mg/2 Ml Inj IV Q4H PRN Nausea And Vomiting Phenobarbital 32.4 mg 07/04/20 22:00 08/28/20 22:52 Phenobarbital 32.4 Mg Tab PO 32.4 mg BID DESIRE Administration Pseudoephedrine/Acetam/Chlorphenir 10 ml 08/18/20 15:45 08/23/20 22:37 Guaifenesin/Codeine 100-10mg Oral Liqd 5 Ml PO 10 ml Q4H PRN Administration Cough Quetiapine Fumarate 200 mg 07/16/20 10:00 08/28/20 10:21 Quetiapine 200 Mg Tab PO 200 mg QAM DESIRE Administration Senna 17.2 mg 07/14/20 11:00 08/03/20 16:46 Sennosides 8.6 Mg Tab PO 8.6 mg BID PRN Administration Laxative Effect Nutrition/Malnutrition Assess - Dietary Evaluation Nutrition/Malnutrition Findings: Nutrition Notes Start: 05/17/20 14:10 Freq: Status: Active Protocol: Document 08/25/20 11:44 CW (Rec: 08/25/20 11:59 CW [id number]) Nutrition Notes Initial or Follow up Reassessment Current Diagnosis Acute Kidney Injury,Decubitus( Pressure Ulcer),Sepsis, Respiratory Failure Other Pertinent Diagnosis Bilat pneu,Colonic pseudoobstuction, EtOH dependence Current Diet Regular diet Labs/Tests Reviewed Pertinent Medications Humalog Height 6 ft Weight 101.2 kg [place] Body Weight (kg) 80.90 BMI 30.2 Weight change and time frame Weight gain noted Weight Status Obese Subjective/Other Information F/U for ONS and intakes. Pt states drinking and eating 100 % of meals and ONS. Denies N/V /D/C. Weight is trending upwards. Will continue ONS despite weight gain for needed protein for wound healing. Adm weight on 07/27 noted as 96 .1kg, indicating a 5% weight gain x 30 days. Percent of energy/protein needs met: 100%/100% Burn Absent Trauma Absent GI Symptoms None Current % PO Good (75-100%) Minimum of two criteria Yes Muscle Mass Mild Depletion (non-severe) Reduced [employer] Strength Measurably Reduced (severe) #3 Nutrition Diagnosis Malnutrition As Evidenced by Signs and Symptoms bilateral weak care tech and temporal wasting, no long significant weight loss. Pt awaitign transfer to rehab facility Diagnosis Progress(for reassessment Continues documentation) #2 Nutrition Diagnosis Increased nutrient needs ( specify in comment below) Diagnosis Progress(for reassessment Continues documentation) Is patient on ventilator? No Is Patient Ambulatory and/or Out of Bed No REE-([place]-St[place] Jeor-confined to bed) [phone] Kcal/Kg value to use for calculation 20 Approximate Energy Requirements Using 2023 kcal/Kg Calculation Used for Recommendations Kcal/kg Additional Notes Protein: 110-137 g (1.2-1.5 g/ kg AdBW 91.05 kg) Fluid: 1ml/kcal Nutrition Intervention Change Diet Order: Continue diet Add Supplement/Snack (indicate name/kcal Ensure High Protein daily /protein ) Sammy BID Provides kCal: 350 Provides Protein (gm) 21 Goal #1 Meet at least 75% protein and energy needs via PO Goal #2 ONS tolerance Goal #3 Intake of Sammy BID Anticipated Discharge Needs: Regular dier, Sammy BID and Ensure High Protein until wound healed Follow-Up By: 09/01/20 Additional Comments F/u stable intakes, ONS tolerance
[2020-08-29] MEDS: INSULIN LISPRO 100 UNIT/ML SUB-Q SCH ×4 (08:07→22:04)
[2020-08-29] MEDS: PHENobarbital 32.4 MG TAB PO SCH ×2 (10:27→22:04)
[2020-08-29] MEDS: METOPROLOL TARTRATE 25 MG TAB PO SCH ×2 (10:27→22:03)
[2020-08-29] MEDS: FOLIC ACID 1 MG TAB PO SCH (10:27)
[2020-08-29] MEDS: guaiFENesin ER 600 MG TAB PO SCH ×2 (10:27→22:03)
[2020-08-29] MEDS: QUEtiapine 200 MG TAB PO SCH (10:28)
--- NOTE | 2020-08-29 12:13 | Progress Note ---
Assessment and Plan Acute hypoxemic respiratory failure due to COVID-19 Severe Sepsis Bilateral pneumonia Acute kidney injury (SEN) with acute tubular necrosis (ATN) Severe Deconditioning Alcohol dependence Elevated liver function tests - no new issues otherwise, continue care as below; - prn CXR's - increase ambulation - PT/OT/ROM exercises - prn BIPAP for increased work of breathing / SOB - continue to wean supplemental oxygen for target O2 sat's > 92% acutely (on 3L NC) - continue aspiration precautions - psychoactive medications per mental health team - continue bowel regimen - aspiration precautions - continue bronchodilators with pulmonary hygiene per RT - accuchecks with glycemic control per SSI for target blood glucose of < 180 mg/dL; avoid hypoglycemia - wean systemic steroids for Asthma / severe COVID infection - completed remdesivir dosing (total 5 days) - avoid nephrotoxins, renally dose all medications - continue to avoid benzodiazepine's, reduce the possibility of delirium - prn analgesia per pain score - Maintenance of sleep-wake cycle, avoid delirium - continue to avoid benzodiazepine's, reduce the possibility of delirium - G.I. & VTE prophylaxis with Prevacid & Lovenox - continue mobility protocols for pressure ulcer prophylaxis - Monitor hemodynamics closely - continue other care per attending / other consultants - discharge planning ongoing concurrently - transfer to telemetry floor ok .... Re-evaluate in am & prn CONDITION: STABLE PROGNOSIS: IMPROVED CODE STATUS: FULL CODE Subjective Date of service: 08/29/20 Principal diagnosis: Ac hypoxemic resp failure; COVID-19; Severe Sepsis; Shaggy PNA; Alcohol Abuse Interval history: Patient is seen today for: Acute hypoxemic respiratory failure due to COVID-19; Severe Sepsis; Bilateral pneumonia; Alcohol dependence; Elevated liver function tests Seen and examined at bedside; 24hour events reviewed; nursing and respiratory care staff consulted; no adverse overnight events reported to me; resting in bed; remains on supplemental oxygen; Objective Vital Signs - 12hr 08/29/20 08/29/20 08/29/20 05:26 09:40 10:00 Temperature 98.6 F Pulse Rate 88 96 H Respiratory 18 Rate Blood Pressure 101/66 O2 Sat by Pulse 98 95 Oximetry Constitutional: no acute distress, other (middle aged obese male with mildly increased respiratory effort at rest) Eyes: non-icteric ENT: oropharynx moist Neck: supple, no JVD Effort: mildly labored Ascultation: Bilateral: diminished breath sounds, rhonchi (posterior bases best heard), other (r. chest tube) Percussion: Bilateral: not dull Cardiovascular: regular rate and rhythm, other (No R/M) Gastrointestinal: normoactive bowel sounds, soft, non-tender, non-distended (protuberant) Integumentary: normal Extremities: no cyanosis, no edema, pulses normal, no ischemia or petechiae Neurologic: non-focal exam (non focal grossly; weak), pupils equal and round, CN II-XII normal, other (weak) Psychiatric: mood appropriate, affect normal CBC and BMP: 08/22/20 05:11 08/23/20 04:39 ABG, PT/INR, D-dimer: ABG ABG pH 7.437 (7.320-7.450) 08/11/20 18:43 POC ABG pCO2 51.0 mmHg (32.0-48.0) H 08/11/20 18:43 ABG pCO2 53.1 mm Hg 07/08/20 Unknown POC ABG pO2 84.9 mmHg (83-108) 08/11/20 18:43 ABG pO2 75.3 mm Hg (80.0-90.0) L 07/08/20 Unknown POC ABG HCO3 33.6 08/11/20 18:43 ABG O2 Saturation 96.5 % (95.0-99.0) 07/08/20 Unknown PT/INR, D-dimer PT 11.8 Sec. (12.2-14.9) L 06/22/20 14:29 INR 0.88 (0.87-1.13) 06/22/20 14:29 D-Dimer 1887.82 ng/mlDDU (0-234) H 05/20/20 08:16 Abnormal lab findings: Abnormal Labs 05/09/20 05/09/20 05/09/20 12:59 12:59 12:59 WBC 11.8 H RBC Hgb Hct MCV 96 H MCH 34 H MCHC 35 H RDW Lymph % (Auto) 6.9 L [place] % (Auto) Lymph # (Auto) 0.8 L [place] # (Auto) Baso # (Auto) Seg Neutrophils % 87.5 H Seg Neuts % (Manual) Lymphocytes % (Manual) Nucleated RBC % Seg Neutrophils # 10.3 H Seg Neutrophils # Man Lymphocytes # (Manual) Monocytes # (Manual) Eosinophils # (Manual) PT INR APTT D-Dimer Heparin Anti-Xa Level ABG pH POC ABG pCO2 POC ABG pO2 ABG pO2 ABG HCO3 ABG O2 Saturation ABG Base Excess ABG Hemoglobin ABG Oxyhemoglobin ABG Sodium ABG Potassium ABG Chloride ABG Glucose Oxyhemoglobin Carboxyhemoglobin Sodium 130 L Potassium 3.5 L Chloride 86.4 L Carbon Dioxide BUN 33 H Creatinine 2.3 H Glucose 156 H POC Glucose Lactic Acid Calcium Phosphorus Magnesium Ferritin Total Bilirubin 3.40 H Direct Bilirubin 1.7 H AST 385 H ALT 134 H Alkaline Phosphatase Lactate Dehydrogenase C-Reactive Protein Total Protein Albumin 3.0 L Triglycerides Lipase Arterial Blood Glucose Arterial Blood Ionized Calcium Urine WBC (Auto) Coronavirus (PCR) SARS-CoV-2 IgG Ab Crossmatch 05/09/20 05/09/20 05/09/20 12:59 12:59 12:59 WBC RBC Hgb Hct MCV MCH MCHC RDW Lymph % (Auto) [place] % (Auto) Lymph # (Auto) [place] # (Auto) Baso # (Auto) Seg Neutrophils % Seg Neuts % (Manual) Lymphocytes % (Manual) Nucleated RBC % Seg Neutrophils # Seg Neutrophils # Man Lymphocytes # (Manual) Monocytes # (Manual) Eosinophils # (Manual) PT INR APTT D-Dimer 3242.51 H Heparin Anti-Xa Level ABG pH POC ABG pCO2 POC ABG pO2 ABG pO2 ABG HCO3 ABG O2 Saturation ABG Base Excess ABG Hemoglobin ABG Oxyhemoglobin ABG Sodium ABG Potassium ABG Chloride ABG Glucose Oxyhemoglobin Carboxyhemoglobin Sodium Potassium Chloride Carbon Dioxide BUN Creatinine Glucose 158 H POC Glucose Lactic Acid 3.50 H* Calcium Phosphorus Magnesium Ferritin Total Bilirubin Direct Bilirubin AST ALT Alkaline Phosphatase Lactate Dehydrogenase 2166 H C-Reactive Protein 39.00 H Total Protein Albumin Triglycerides Lipase Arterial Blood Glucose Arterial Blood Ionized Calcium Urine WBC (Auto) Coronavirus (PCR) SARS-CoV-2 IgG Ab Crossmatch 05/09/20 05/09/20 05/09/20 12:59 14:20 14:20 WBC RBC Hgb Hct MCV MCH MCHC RDW Lymph % (Auto) [place] % (Auto) Lymph # (Auto) [place] # (Auto) Baso # (Auto) Seg Neutrophils % Seg Neuts % (Manual) Lymphocytes % (Manual) Nucleated RBC % Seg Neutrophils # Seg Neutrophils # Man Lymphocytes # (Manual) Monocytes # (Manual) Eosinophils # (Manual) PT INR APTT D-Dimer 2861.78 H Heparin Anti-Xa Level ABG pH POC ABG pCO2 POC ABG pO2 ABG pO2 ABG HCO3 ABG O2 Saturation ABG Base Excess ABG Hemoglobin ABG Oxyhemoglobin ABG Sodium ABG Potassium ABG Chloride ABG Glucose Oxyhemoglobin Carboxyhemoglobin Sodium Potassium Chloride Carbon Dioxide BUN Creatinine Glucose POC Glucose Lactic Acid 2.20 H* Calcium Phosphorus Magnesium Ferritin 74413.0 H Total Bilirubin Direct Bilirubin AST ALT Alkaline Phosphatase Lactate Dehydrogenase C-Reactive Protein Total Protein Albumin Triglycerides Lipase Arterial Blood Glucose Arterial Blood Ionized Calcium Urine WBC (Auto) Coronavirus (PCR) SARS-CoV-2 IgG Ab Crossmatch 05/09/20 05/09/20 05/09/20 14:20 14:20 15:56 WBC RBC Hgb Hct MCV MCH MCHC RDW Lymph % (Auto) [place] % (Auto) Lymph # (Auto) [place] # (Auto) Baso # (Auto) Seg Neutrophils % Seg Neuts % (Manual) Lymphocytes % (Manual) Nucleated RBC % Seg Neutrophils # Seg Neutrophils # Man Lymphocytes # (Manual) Monocytes # (Manual) Eosinophils # (Manual) PT INR APTT D-Dimer Heparin Anti-Xa Level ABG pH POC ABG pCO2 POC ABG pO2 57.3 L ABG pO2 ABG HCO3 ABG O2 Saturation ABG Base Excess ABG Hemoglobin ABG Oxyhemoglobin 86.3 L ABG Sodium 129.9 L ABG Potassium ABG Chloride ABG Glucose 146 H Oxyhemoglobin Carboxyhemoglobin Sodium Potassium Chloride Carbon Dioxide BUN Creatinine Glucose 143 H POC Glucose Lactic Acid Calcium Phosphorus Magnesium Ferritin 06358.0 H Total Bilirubin Direct Bilirubin AST ALT Alkaline Phosphatase Lactate Dehydrogenase 1953 H C-Reactive Protein 33.50 H Total Protein Albumin Triglycerides Lipase Arterial Blood Glucose 146 H Arterial Blood Ionized Calcium 3.9 L Urine WBC (Auto) Coronavirus (PCR) SARS-CoV-2 IgG Ab Crossmatch 05/10/20 05/10/20 05/10/20 10:32 10:32 18:50 WBC 15.4 H RBC Hgb Hct MCV 97 H MCH 33 H MCHC RDW 13.1 L Lymph % (Auto) [place] % (Auto) Lymph # (Auto) [place] # (Auto) Baso # (Auto) Seg Neutrophils % Seg Neuts % (Manual) 89.0 H Lymphocytes % (Manual) 8.0 L Nucleated RBC % Seg Neutrophils # Seg Neutrophils # Man 13.7 H Lymphocytes # (Manual) Monocytes # (Manual) Eosinophils # (Manual) PT INR APTT D-Dimer Heparin Anti-Xa Level ABG pH POC ABG pCO2 POC ABG pO2 ABG pO2 ABG HCO3 ABG O2 Saturation ABG Base Excess ABG Hemoglobin ABG Oxyhemoglobin ABG Sodium ABG Potassium ABG Chloride ABG Glucose Oxyhemoglobin Carboxyhemoglobin Sodium 136 L Potassium Chloride 97.4 L Carbon Dioxide BUN 37 H Creatinine 1.7 H Glucose 209 H POC Glucose Lactic Acid Calcium Phosphorus Magnesium Ferritin > 2000.0 H Total Bilirubin Direct Bilirubin AST ALT Alkaline Phosphatase Lactate Dehydrogenase C-Reactive Protein Total Protein Albumin Triglycerides Lipase Arterial Blood Glucose Arterial Blood Ionized Calcium Urine WBC (Auto) Coronavirus (PCR) SARS-CoV-2 IgG Ab Crossmatch 05/10/20 05/10/20 05/10/20 18:50 19:00 Unknown WBC RBC Hgb Hct MCV MCH MCHC RDW Lymph % (Auto) [place] % (Auto) Lymph # (Auto) [place] # (Auto) Baso # (Auto) Seg Neutrophils % Seg Neuts % (Manual) Lymphocytes % (Manual) Nucleated RBC % Seg Neutrophils # Seg Neutrophils # Man Lymphocytes # (Manual) Monocytes # (Manual) Eosinophils # (Manual) PT INR APTT D-Dimer > 58623 H Heparin Anti-Xa Level ABG pH POC ABG pCO2 POC ABG pO2 ABG pO2 ABG HCO3 ABG O2 Saturation ABG Base Excess ABG Hemoglobin ABG Oxyhemoglobin ABG Sodium ABG Potassium ABG Chloride ABG Glucose Oxyhemoglobin Carboxyhemoglobin Sodium Potassium Chloride Carbon Dioxide BUN Creatinine Glucose POC Glucose Lactic Acid Calcium Phosphorus Magnesium Ferritin Total Bilirubin Direct Bilirubin AST ALT Alkaline Phosphatase Lactate Dehydrogenase 1879 H C-Reactive Protein 24.80 H Total Protein Albumin Triglycerides Lipase Arterial Blood Glucose Arterial Blood Ionized Calcium Urine WBC (Auto) 11.0 H Coronavirus (PCR) SARS-CoV-2 IgG Ab Crossmatch 05/10/20 05/11/20 05/11/20 Unknown 07:30 07:30 WBC RBC Hgb Hct MCV MCH MCHC RDW Lymph % (Auto) [place] % (Auto) Lymph # (Auto) [place] # (Auto) Baso # (Auto) Seg Neutrophils % Seg Neuts % (Manual) Lymphocytes % (Manual) Nucleated RBC % Seg Neutrophils # Seg Neutrophils # Man Lymphocytes # (Manual) Monocytes # (Manual) Eosinophils # (Manual) PT INR APTT D-Dimer > 2000 H Heparin Anti-Xa Level ABG pH POC ABG pCO2 POC ABG pO2 ABG pO2 ABG HCO3 ABG O2 Saturation ABG Base Excess ABG Hemoglobin ABG Oxyhemoglobin ABG Sodium ABG Potassium ABG Chloride ABG Glucose Oxyhemoglobin Carboxyhemoglobin Sodium Potassium Chloride 96.3 L Carbon Dioxide BUN 36 H Creatinine Glucose 161 H POC Glucose Lactic Acid Calcium 8.3 L Phosphorus Magnesium Ferritin Total Bilirubin 1.50 H Direct Bilirubin 0.6 H AST 178 H ALT 111 H Alkaline Phosphatase Lactate Dehydrogenase C-Reactive Protein Total Protein Albumin 3.0 L Triglycerides Lipase Arterial Blood Glucose Arterial Blood Ionized Calcium Urine WBC (Auto) Coronavirus (PCR) Positive A SARS-CoV-2 IgG Ab Crossmatch 05/11/20 05/11/20 05/11/20 07:30 07:30 07:30 WBC RBC Hgb Hct MCV MCH MCHC RDW Lymph % (Auto) [place] % (Auto) Lymph # (Auto) [place] # (Auto) Baso # (Auto) Seg Neutrophils % Seg Neuts % (Manual) Lymphocytes % (Manual) Nucleated RBC % Seg Neutrophils # Seg Neutrophils # Man Lymphocytes # (Manual) Monocytes # (Manual) Eosinophils # (Manual) PT INR APTT D-Dimer Heparin Anti-Xa Level ABG pH POC ABG pCO2 POC ABG pO2 ABG pO2 ABG HCO3 ABG O2 Saturation ABG Base Excess ABG Hemoglobin ABG Oxyhemoglobin ABG Sodium ABG Potassium ABG Chloride ABG Glucose Oxyhemoglobin Carboxyhemoglobin Sodium Potassium Chloride Carbon Dioxide BUN Creatinine Glucose POC Glucose Lactic Acid Calcium Phosphorus Magnesium Ferritin 38681.0 H Total Bilirubin Direct Bilirubin AST ALT Alkaline Phosphatase Lactate Dehydrogenase 1523 H C-Reactive Protein 12.90 H Total Protein Albumin Triglycerides Lipase Arterial Blood Glucose Arterial Blood Ionized Calcium Urine WBC (Auto) Coronavirus (PCR) SARS-CoV-2 IgG Ab Reactive A Crossmatch 05/13/20 05/13/20 05/15/20 05:20 05:20 08:15 WBC RBC Hgb Hct MCV MCH MCHC RDW Lymph % (Auto) [place] % (Auto) Lymph # (Auto) [place] # (Auto) Baso # (Auto) Seg Neutrophils % Seg Neuts % (Manual) Lymphocytes % (Manual) Nucleated RBC % Seg Neutrophils # Seg Neutrophils # Man Lymphocytes # (Manual) Monocytes # (Manual) Eosinophils # (Manual) PT INR APTT D-Dimer > 06639 H 5318.28 H Heparin Anti-Xa Level ABG pH POC ABG pCO2 POC ABG pO2 ABG pO2 ABG HCO3 ABG O2 Saturation ABG Base Excess ABG Hemoglobin ABG Oxyhemoglobin ABG Sodium ABG Potassium ABG Chloride ABG Glucose Oxyhemoglobin Carboxyhemoglobin Sodium Potassium Chloride Carbon Dioxide 32 H BUN 30 H Creatinine Glucose 156 H POC Glucose Lactic Acid Calcium Phosphorus Magnesium 2.60 H Ferritin Total Bilirubin 1.40 H Direct Bilirubin AST 121 H ALT 119 H Alkaline Phosphatase Lactate Dehydrogenase 957 H C-Reactive Protein 4.00 H Total Protein Albumin 3.0 L Triglycerides Lipase Arterial Blood Glucose Arterial Blood Ionized Calcium Urine WBC (Auto) Coronavirus (PCR) SARS-CoV-2 IgG Ab Crossmatch 05/15/20 05/15/20 05/15/20 08:15 08:15 08:15 WBC 12.4 H RBC Hgb Hct MCV 98 H MCH 33 H MCHC RDW Lymph % (Auto) 9.7 L [place] % (Auto) Lymph # (Auto) [place] # (Auto) Baso # (Auto) Seg Neutrophils % 86.8 H Seg Neuts % (Manual) Lymphocytes % (Manual) Nucleated RBC % Seg Neutrophils # 10.8 H Seg Neutrophils # Man Lymphocytes # (Manual) Monocytes # (Manual) Eosinophils # (Manual) PT INR APTT D-Dimer Heparin Anti-Xa Level ABG pH POC ABG pCO2 POC ABG pO2 ABG pO2 ABG HCO3 ABG O2 Saturation ABG Base Excess ABG Hemoglobin ABG Oxyhemoglobin ABG Sodium ABG Potassium ABG Chloride ABG Glucose Oxyhemoglobin Carboxyhemoglobin Sodium Potassium Chloride 94.8 L Carbon Dioxide 32 H BUN 22 H Creatinine Glucose 115 H POC Glucose Lactic Acid Calcium 8.3 L Phosphorus Magnesium Ferritin 2494.0 H Total Bilirubin Direct Bilirubin AST 73 H ALT 121 H Alkaline Phosphatase Lactate Dehydrogenase 835 H C-Reactive Protein 3.40 H Total Protein 6.1 L Albumin 3.0 L Triglycerides Lipase Arterial Blood Glucose Arterial Blood Ionized Calcium Urine WBC (Auto) Coronavirus (PCR) SARS-CoV-2 IgG Ab Crossmatch 05/17/20 05/17/20 05/17/20 05:50 05:50 05:50 WBC RBC Hgb Hct MCV MCH MCHC RDW Lymph % (Auto) [place] % (Auto) Lymph # (Auto) [place] # (Auto) Baso # (Auto) Seg Neutrophils % Seg Neuts % (Manual) Lymphocytes % (Manual) Nucleated RBC % Seg Neutrophils # Seg Neutrophils # Man Lymphocytes # (Manual) Monocytes # (Manual) Eosinophils # (Manual) PT INR APTT D-Dimer 2911.42 H Heparin Anti-Xa Level ABG pH POC ABG pCO2 POC ABG pO2 ABG pO2 ABG HCO3 ABG O2 Saturation ABG Base Excess ABG Hemoglobin ABG Oxyhemoglobin ABG Sodium ABG Potassium ABG Chloride ABG Glucose Oxyhemoglobin Carboxyhemoglobin Sodium 136 L Potassium Chloride 96.0 L Carbon Dioxide 34 H BUN 22 H Creatinine Glucose 140 H POC Glucose Lactic Acid Calcium Phosphorus Magnesium Ferritin 2082.0 H Total Bilirubin Direct Bilirubin AST ALT 75 H Alkaline Phosphatase Lactate Dehydrogenase 601 H C-Reactive Protein 2.70 H Total Protein Albumin 2.9 L Triglycerides Lipase Arterial Blood Glucose Arterial Blood Ionized Calcium Urine WBC (Auto) Coronavirus (PCR) SARS-CoV-2 IgG Ab Crossmatch 05/17/20 05/18/20 05/20/20 05:50 12:22 08:16 WBC RBC Hgb Hct MCV 98 H MCH 33 H MCHC RDW Lymph % (Auto) 8.0 L [place] % (Auto) Lymph # (Auto) 0.8 L [place] # (Auto) Baso # (Auto) Seg Neutrophils % 89.3 H Seg Neuts % (Manual) Lymphocytes % (Manual) Nucleated RBC % Seg Neutrophils # 8.8 H Seg Neutrophils # Man Lymphocytes # (Manual) Monocytes # (Manual) Eosinophils # (Manual) PT INR APTT D-Dimer 1887.82 H Heparin Anti-Xa Level ABG pH POC ABG pCO2 POC ABG pO2 ABG pO2 ABG HCO3 ABG O2 Saturation ABG Base Excess ABG Hemoglobin ABG Oxyhemoglobin ABG Sodium ABG Potassium ABG Chloride ABG Glucose Oxyhemoglobin Carboxyhemoglobin Sodium Potassium Chloride Carbon Dioxide BUN Creatinine Glucose POC Glucose 178 H Lactic Acid Calcium Phosphorus Magnesium Ferritin Total Bilirubin Direct Bilirubin AST ALT Alkaline Phosphatase Lactate Dehydrogenase C-Reactive Protein Total Protein Albumin Triglycerides Lipase Arterial Blood Glucose Arterial Blood Ionized Calcium Urine WBC (Auto) Coronavirus (PCR) SARS-CoV-2 IgG Ab Crossmatch 11/06/2705/20/20 05/21/20 08:16 08:16 21:10 WBC RBC Hgb Hct MCV MCH MCHC RDW Lymph % (Auto) [place] % (Auto) Lymph # (Auto) [place] # (Auto) Baso # (Auto) Seg Neutrophils % Seg Neuts % (Manual) Lymphocytes % (Manual) Nucleated RBC % Seg Neutrophils # Seg Neutrophils # Man Lymphocytes # (Manual) Monocytes # (Manual) Eosinophils # (Manual) PT INR APTT D-Dimer Heparin Anti-Xa Level ABG pH 7.483 H POC ABG pCO2 POC ABG pO2 ABG pO2 50.0 L ABG HCO3 27.0 H ABG O2 Saturation 86.2 L ABG Base Excess 3.7 H ABG Hemoglobin ABG Oxyhemoglobin ABG Sodium ABG Potassium ABG Chloride ABG Glucose Oxyhemoglobin 84.2 L Carboxyhemoglobin Sodium Potassium Chloride Carbon Dioxide BUN Creatinine Glucose POC Glucose Lactic Acid Calcium Phosphorus Magnesium Ferritin 1960.0 H Total Bilirubin Direct Bilirubin AST ALT Alkaline Phosphatase Lactate Dehydrogenase 705 H C-Reactive Protein 3.10 H Total Protein Albumin Triglycerides Lipase Arterial Blood Glucose Arterial Blood Ionized Calcium Urine WBC (Auto) Coronavirus (PCR) SARS-CoV-2 IgG Ab Crossmatch 05/22/20 05/22/20 05/22/20 04:01 07:53 07:53 WBC 19.2 H RBC Hgb Hct MCV 98 H MCH 34 H MCHC RDW Lymph % (Auto) [place] % (Auto) Lymph # (Auto) [place] # (Auto) Baso # (Auto) Seg Neutrophils % Seg Neuts % (Manual) 96.0 H Lymphocytes % (Manual) 1.0 L Nucleated RBC % Seg Neutrophils # Seg Neutrophils # Man 18.4 H Lymphocytes # (Manual) 0.2 L Monocytes # (Manual) Eosinophils # (Manual) PT INR APTT D-Dimer Heparin Anti-Xa Level ABG pH POC ABG pCO2 53.8 H POC ABG pO2 125.5 H ABG pO2 ABG HCO3 ABG O2 Saturation ABG Base Excess ABG Hemoglobin ABG Oxyhemoglobin ABG Sodium 131.8 L ABG Potassium 4.8 H ABG Chloride 94.0 L ABG Glucose 163 H Oxyhemoglobin Carboxyhemoglobin Sodium 131 L Potassium Chloride 93.4 L Carbon Dioxide BUN 40 H Creatinine Glucose 176 H POC Glucose Lactic Acid Calcium Phosphorus Magnesium 2.70 H Ferritin Total Bilirubin 1.80 H Direct Bilirubin AST 45 H ALT 116 H Alkaline Phosphatase 181 H Lactate Dehydrogenase C-Reactive Protein Total Protein Albumin 2.6 L Triglycerides Lipase Arterial Blood Glucose 163 H Arterial Blood Ionized Calcium 4.5 L Urine WBC (Auto) Coronavirus (PCR) SARS-CoV-2 IgG Ab Crossmatch 05/23/20 05/24/20 05/24/20 04:17 03:07 04:08 WBC RBC Hgb Hct MCV MCH MCHC RDW Lymph % (Auto) [place] % (Auto) Lymph # (Auto) [place] # (Auto) Baso # (Auto) Seg Neutrophils % Seg Neuts % (Manual) Lymphocytes % (Manual) Nucleated RBC % Seg Neutrophils # Seg Neutrophils # Man Lymphocytes # (Manual) Monocytes # (Manual) Eosinophils # (Manual) PT INR APTT D-Dimer Heparin Anti-Xa Level ABG pH 7.328 L POC ABG pCO2 POC ABG pO2 ABG pO2 72.8 L 73.4 L ABG HCO3 31.0 H 34.0 H ABG O2 Saturation 93.5 L ABG Base Excess 3.5 H 7.7 H ABG Hemoglobin 13.3 L 12.1 L ABG Oxyhemoglobin ABG Sodium ABG Potassium ABG Chloride ABG Glucose Oxyhemoglobin 91.5 L 94.3 L Carboxyhemoglobin Sodium Potassium Chloride Carbon Dioxide BUN Creatinine Glucose POC Glucose 155 H Lactic Acid Calcium Phosphorus Magnesium Ferritin Total Bilirubin Direct Bilirubin AST ALT Alkaline Phosphatase Lactate Dehydrogenase C-Reactive Protein Total Protein Albumin Triglycerides Lipase Arterial Blood Glucose Arterial Blood Ionized Calcium Urine WBC (Auto) Coronavirus (PCR) SARS-CoV-2 IgG Ab Crossmatch 05/24/20 05/24/20 05/24/20 09:33 12:21 17:52 WBC RBC Hgb Hct MCV MCH MCHC RDW Lymph % (Auto) [place] % (Auto) Lymph # (Auto) [place] # (Auto) Baso # (Auto) Seg Neutrophils % Seg Neuts % (Manual) Lymphocytes % (Manual) Nucleated RBC % Seg Neutrophils # Seg Neutrophils # Man Lymphocytes # (Manual) Monocytes # (Manual) Eosinophils # (Manual) PT INR APTT D-Dimer Heparin Anti-Xa Level ABG pH POC ABG pCO2 POC ABG pO2 ABG pO2 ABG HCO3 ABG O2 Saturation ABG Base Excess ABG Hemoglobin ABG Oxyhemoglobin ABG Sodium ABG Potassium ABG Chloride ABG Glucose Oxyhemoglobin Carboxyhemoglobin Sodium Potassium Chloride Carbon Dioxide 34 H D BUN 28 H Creatinine 0.7 L Glucose 168 H POC Glucose 173 H 164 H Lactic Acid Calcium Phosphorus Magnesium Ferritin Total Bilirubin Direct Bilirubin AST ALT Alkaline Phosphatase Lactate Dehydrogenase C-Reactive Protein Total Protein Albumin Triglycerides Lipase Arterial Blood Glucose Arterial Blood Ionized Calcium Urine WBC (Auto) Coronavirus (PCR) SARS-CoV-2 IgG Ab Crossmatch 05/24/20 05/25/20 05/25/20 23:47 04:29 05:46 WBC RBC Hgb Hct MCV MCH MCHC RDW Lymph % (Auto) [place] % (Auto) Lymph # (Auto) [place] # (Auto) Baso # (Auto) Seg Neutrophils % Seg Neuts % (Manual) Lymphocytes % (Manual) Nucleated RBC % Seg Neutrophils # Seg Neutrophils # Man Lymphocytes # (Manual) Monocytes # (Manual) Eosinophils # (Manual) PT INR APTT D-Dimer Heparin Anti-Xa Level ABG pH POC ABG pCO2 68.6 H POC ABG pO2 ABG pO2 ABG HCO3 ABG O2 Saturation ABG Base Excess ABG Hemoglobin ABG Oxyhemoglobin ABG Sodium ABG Potassium 4.7 H ABG Chloride ABG Glucose 226 H Oxyhemoglobin Carboxyhemoglobin Sodium Potassium Chloride Carbon Dioxide BUN Creatinine Glucose POC Glucose 171 H 201 H Lactic Acid Calcium Phosphorus Magnesium Ferritin Total Bilirubin Direct Bilirubin AST ALT Alkaline Phosphatase Lactate Dehydrogenase C-Reactive Protein Total Protein Albumin Triglycerides Lipase Arterial Blood Glucose 226 H Arterial Blood Ionized Calcium Urine WBC (Auto) Coronavirus (PCR) SARS-CoV-2 IgG Ab Crossmatch 05/25/20 05/25/20 05/25/20 08:37 08:37 12:38 WBC 12.0 H RBC 3.64 L Hgb Hct MCV 99 H MCH 33 H MCHC RDW Lymph % (Auto) [place] % (Auto) Lymph # (Auto) [place] # (Auto) Baso # (Auto) Seg Neutrophils % Seg Neuts % (Manual) Lymphocytes % (Manual) Nucleated RBC % Seg Neutrophils # Seg Neutrophils # Man Lymphocytes # (Manual) Monocytes # (Manual) Eosinophils # (Manual) PT INR APTT D-Dimer Heparin Anti-Xa Level ABG pH POC ABG pCO2 POC ABG pO2 ABG pO2 ABG HCO3 ABG O2 Saturation ABG Base Excess ABG Hemoglobin ABG Oxyhemoglobin ABG Sodium ABG Potassium ABG Chloride ABG Glucose Oxyhemoglobin Carboxyhemoglobin Sodium Potassium Chloride 97.3 L Carbon Dioxide 35 H BUN 25 H Creatinine 0.7 L Glucose 191 H POC Glucose 182 H Lactic Acid Calcium Phosphorus Magnesium Ferritin Total Bilirubin Direct Bilirubin AST ALT Alkaline Phosphatase Lactate Dehydrogenase C-Reactive Protein Total Protein Albumin Triglycerides Lipase Arterial Blood Glucose Arterial Blood Ionized Calcium Urine WBC (Auto) Coronavirus (PCR) SARS-CoV-2 IgG Ab Crossmatch 05/25/20 05/26/20 05/26/20 18:16 00:06 04:50 WBC RBC Hgb Hct MCV MCH MCHC RDW Lymph % (Auto) [place] % (Auto) Lymph # (Auto) [place] # (Auto) Baso # (Auto) Seg Neutrophils % Seg Neuts % (Manual) Lymphocytes % (Manual) Nucleated RBC % Seg Neutrophils # Seg Neutrophils # Man Lymphocytes # (Manual) Monocytes # (Manual) Eosinophils # (Manual) PT INR APTT D-Dimer Heparin Anti-Xa Level ABG pH POC ABG pCO2 POC ABG pO2 ABG pO2 221.5 H ABG HCO3 40.4 H ABG O2 Saturation 99.3 H ABG Base Excess 12.8 H ABG Hemoglobin 10.4 L ABG Oxyhemoglobin ABG Sodium ABG Potassium ABG Chloride ABG Glucose Oxyhemoglobin Carboxyhemoglobin Sodium Potassium Chloride Carbon Dioxide BUN Creatinine Glucose POC Glucose 176 H 152 H Lactic Acid Calcium Phosphorus Magnesium Ferritin Total Bilirubin Direct Bilirubin AST ALT Alkaline Phosphatase Lactate Dehydrogenase C-Reactive Protein Total Protein Albumin Triglycerides Lipase Arterial Blood Glucose Arterial Blood Ionized Calcium Urine WBC (Auto) Coronavirus (PCR) SARS-CoV-2 IgG Ab Crossmatch 05/26/20 05/26/20 05/26/20 06:11 07:51 07:51 WBC 13.4 H RBC 3.64 L Hgb Hct MCV 98 H MCH 33 H MCHC RDW Lymph % (Auto) [place] % (Auto) Lymph # (Auto) [place] # (Auto) Baso # (Auto) Seg Neutrophils % Seg Neuts % (Manual) Lymphocytes % (Manual) Nucleated RBC % Seg Neutrophils # Seg Neutrophils # Man Lymphocytes # (Manual) Monocytes # (Manual) Eosinophils # (Manual) PT INR APTT D-Dimer Heparin Anti-Xa Level ABG pH POC ABG pCO2 POC ABG pO2 ABG pO2 ABG HCO3 ABG O2 Saturation ABG Base Excess ABG Hemoglobin ABG Oxyhemoglobin ABG Sodium ABG Potassium ABG Chloride ABG Glucose Oxyhemoglobin Carboxyhemoglobin Sodium Potassium Chloride 96.6 L Carbon Dioxide 39 H BUN 29 H Creatinine 0.7 L Glucose 174 H POC Glucose 165 H Lactic Acid Calcium Phosphorus Magnesium Ferritin Total Bilirubin Direct Bilirubin AST ALT Alkaline Phosphatase Lactate Dehydrogenase C-Reactive Protein Total Protein Albumin Triglycerides Lipase Arterial Blood Glucose Arterial Blood Ionized Calcium Urine WBC (Auto) Coronavirus (PCR) SARS-CoV-2 IgG Ab Crossmatch 05/26/20 05/27/20 05/27/20 23:23 03:43 05:29 WBC RBC Hgb Hct MCV MCH MCHC RDW Lymph % (Auto) [place] % (Auto) Lymph # (Auto) [place] # (Auto) Baso # (Auto) Seg Neutrophils % Seg Neuts % (Manual) Lymphocytes % (Manual) Nucleated RBC % Seg Neutrophils # Seg Neutrophils # Man Lymphocytes # (Manual) Monocytes # (Manual) Eosinophils # (Manual) PT INR APTT D-Dimer Heparin Anti-Xa Level ABG pH 7.480 H POC ABG pCO2 52.4 H POC ABG pO2 61.4 L ABG pO2 ABG HCO3 ABG O2 Saturation ABG Base Excess ABG Hemoglobin ABG Oxyhemoglobin ABG Sodium 134.9 L ABG Potassium ABG Chloride 95.0 L ABG Glucose 221 H Oxyhemoglobin Carboxyhemoglobin Sodium Potassium Chloride Carbon Dioxide BUN Creatinine Glucose POC Glucose 169 H 227 H Lactic Acid Calcium Phosphorus Magnesium Ferritin Total Bilirubin Direct Bilirubin AST ALT Alkaline Phosphatase Lactate Dehydrogenase C-Reactive Protein Total Protein Albumin Triglycerides Lipase Arterial Blood Glucose 221 H Arterial Blood Ionized Calcium 4.5 L Urine WBC (Auto) Coronavirus (PCR) SARS-CoV-2 IgG Ab Crossmatch 05/27/20 05/27/20 05/27/20 07:19 12:18 13:50 WBC RBC Hgb Hct MCV MCH MCHC RDW Lymph % (Auto) [place] % (Auto) Lymph # (Auto) [place] # (Auto) Baso # (Auto) Seg Neutrophils % Seg Neuts % (Manual) Lymphocytes % (Manual) Nucleated RBC % Seg Neutrophils # Seg Neutrophils # Man Lymphocytes # (Manual) Monocytes # (Manual) Eosinophils # (Manual) PT INR APTT D-Dimer Heparin Anti-Xa Level ABG pH POC ABG pCO2 POC ABG pO2 ABG pO2 ABG HCO3 ABG O2 Saturation ABG Base Excess ABG Hemoglobin ABG Oxyhemoglobin ABG Sodium ABG Potassium ABG Chloride ABG Glucose Oxyhemoglobin Carboxyhemoglobin Sodium Potassium Chloride Carbon Dioxide BUN Creatinine Glucose POC Glucose 114 H 148 H Lactic Acid Calcium Phosphorus Magnesium Ferritin Total Bilirubin Direct Bilirubin AST ALT Alkaline Phosphatase Lactate Dehydrogenase C-Reactive Protein Total Protein Albumin Triglycerides 247 H Lipase Arterial Blood Glucose Arterial Blood Ionized Calcium Urine WBC (Auto) Coronavirus (PCR) SARS-CoV-2 IgG Ab Crossmatch 05/28/20 05/28/20 05/28/20 00:13 04:16 05:22 WBC RBC Hgb Hct MCV MCH MCHC RDW Lymph % (Auto) [place] % (Auto) Lymph # (Auto) [place] # (Auto) Baso # (Auto) Seg Neutrophils % Seg Neuts % (Manual) Lymphocytes % (Manual) Nucleated RBC % Seg Neutrophils # Seg Neutrophils # Man Lymphocytes # (Manual) Monocytes # (Manual) Eosinophils # (Manual) PT INR APTT D-Dimer Heparin Anti-Xa Level ABG pH POC ABG pCO2 64.4 H POC ABG pO2 60.5 L ABG pO2 ABG HCO3 ABG O2 Saturation ABG Base Excess ABG Hemoglobin ABG Oxyhemoglobin ABG Sodium ABG Potassium ABG Chloride 95.0 L ABG Glucose 209 H Oxyhemoglobin Carboxyhemoglobin Sodium Potassium Chloride Carbon Dioxide BUN Creatinine Glucose POC Glucose 155 H 186 H Lactic Acid Calcium Phosphorus Magnesium Ferritin Total Bilirubin Direct Bilirubin AST ALT Alkaline Phosphatase Lactate Dehydrogenase C-Reactive Protein Total Protein Albumin Triglycerides Lipase Arterial Blood Glucose 209 H Arterial Blood Ionized Calcium Urine WBC (Auto) Coronavirus (PCR) SARS-CoV-2 IgG Ab Crossmatch 05/28/20 05/28/20 05/29/20 12:45 17:39 00:37 WBC RBC Hgb Hct MCV MCH MCHC RDW Lymph % (Auto) [place] % (Auto) Lymph # (Auto) [place] # (Auto) Baso # (Auto) Seg Neutrophils % Seg Neuts % (Manual) Lymphocytes % (Manual) Nucleated RBC % Seg Neutrophils # Seg Neutrophils # Man Lymphocytes # (Manual) Monocytes # (Manual) Eosinophils # (Manual) PT INR APTT D-Dimer Heparin Anti-Xa Level ABG pH POC ABG pCO2 POC ABG pO2 ABG pO2 ABG HCO3 ABG O2 Saturation ABG Base Excess ABG Hemoglobin ABG Oxyhemoglobin ABG Sodium ABG Potassium ABG Chloride ABG Glucose Oxyhemoglobin Carboxyhemoglobin Sodium Potassium Chloride Carbon Dioxide BUN Creatinine Glucose POC Glucose 143 H 164 H 221 H Lactic Acid Calcium Phosphorus Magnesium Ferritin Total Bilirubin Direct Bilirubin AST ALT Alkaline Phosphatase Lactate Dehydrogenase C-Reactive Protein Total Protein Albumin Triglycerides Lipase Arterial Blood Glucose Arterial Blood Ionized Calcium Urine WBC (Auto) Coronavirus (PCR) SARS-CoV-2 IgG Ab Crossmatch 05/29/20 05/29/20 05/29/20 04:15 05:33 12:34 WBC RBC Hgb Hct MCV MCH MCHC RDW Lymph % (Auto) [place] % (Auto) Lymph # (Auto) [place] # (Auto) Baso # (Auto) Seg Neutrophils % Seg Neuts % (Manual) Lymphocytes % (Manual) Nucleated RBC % Seg Neutrophils # Seg Neutrophils # Man Lymphocytes # (Manual) Monocytes # (Manual) Eosinophils # (Manual) PT INR APTT D-Dimer Heparin Anti-Xa Level ABG pH 7.463 H POC ABG pCO2 56.3 H POC ABG pO2 81.2 L ABG pO2 ABG HCO3 ABG O2 Saturation ABG Base Excess ABG Hemoglobin ABG Oxyhemoglobin ABG Sodium ABG Potassium ABG Chloride 96.0 L ABG Glucose 194 H Oxyhemoglobin Carboxyhemoglobin Sodium Potassium Chloride Carbon Dioxide BUN Creatinine Glucose POC Glucose 133 H 221 H Lactic Acid Calcium Phosphorus Magnesium Ferritin Total Bilirubin Direct Bilirubin AST ALT Alkaline Phosphatase Lactate Dehydrogenase C-Reactive Protein Total Protein Albumin Triglycerides Lipase Arterial Blood Glucose 194 H Arterial Blood Ionized Calcium 4.5 L Urine WBC (Auto) Coronavirus (PCR) SARS-CoV-2 IgG Ab Crossmatch 05/29/20 05/30/20 05/30/20 18:07 00:12 05:38 WBC RBC Hgb Hct MCV MCH MCHC RDW Lymph % (Auto) [place] % (Auto) Lymph # (Auto) [place] # (Auto) Baso # (Auto) Seg Neutrophils % Seg Neuts % (Manual) Lymphocytes % (Manual) Nucleated RBC % Seg Neutrophils # Seg Neutrophils # Man Lymphocytes # (Manual) Monocytes # (Manual) Eosinophils # (Manual) PT INR APTT D-Dimer Heparin Anti-Xa Level ABG pH POC ABG pCO2 POC ABG pO2 ABG pO2 ABG HCO3 ABG O2 Saturation ABG Base Excess ABG Hemoglobin ABG Oxyhemoglobin ABG Sodium ABG Potassium ABG Chloride ABG Glucose Oxyhemoglobin Carboxyhemoglobin Sodium Potassium Chloride Carbon Dioxide BUN Creatinine Glucose POC Glucose 162 H 190 H 208 H Lactic Acid Calcium Phosphorus Magnesium Ferritin Total Bilirubin Direct Bilirubin AST ALT Alkaline Phosphatase Lactate Dehydrogenase C-Reactive Protein Total Protein Albumin Triglycerides Lipase Arterial Blood Glucose Arterial Blood Ionized Calcium Urine WBC (Auto) Coronavirus (PCR) SARS-CoV-2 IgG Ab Crossmatch 05/30/20 05/30/20 05/30/20 09:30 11:35 11:54 WBC 12.4 H RBC 3.48 L Hgb 11.3 L Hct 34.6 L MCV 99 H MCH 33 H MCHC RDW Lymph % (Auto) [place] % (Auto) Lymph # (Auto) [place] # (Auto) Baso # (Auto) Seg Neutrophils % Seg Neuts % (Manual) Lymphocytes % (Manual) Nucleated RBC % Seg Neutrophils # Seg Neutrophils # Man Lymphocytes # (Manual) Monocytes # (Manual) Eosinophils # (Manual) PT INR APTT D-Dimer Heparin Anti-Xa Level ABG pH 7.455 H POC ABG pCO2 57.5 H POC ABG pO2 81.5 L ABG pO2 ABG HCO3 ABG O2 Saturation ABG Base Excess ABG Hemoglobin ABG Oxyhemoglobin ABG Sodium ABG Potassium ABG Chloride 96.0 L ABG Glucose 204 H Oxyhemoglobin Carboxyhemoglobin Sodium Potassium Chloride Carbon Dioxide BUN Creatinine Glucose POC Glucose 183 H Lactic Acid Calcium Phosphorus Magnesium Ferritin Total Bilirubin Direct Bilirubin AST ALT Alkaline Phosphatase Lactate Dehydrogenase C-Reactive Protein Total Protein Albumin Triglycerides Lipase Arterial Blood Glucose 204 H Arterial Blood Ionized Calcium Urine WBC (Auto) Coronavirus (PCR) SARS-CoV-2 IgG Ab Crossmatch 05/30/20 05/31/20 05/31/20 18:01 00:10 03:22 WBC RBC Hgb Hct MCV MCH MCHC RDW Lymph % (Auto) [place] % (Auto) Lymph # (Auto) [place] # (Auto) Baso # (Auto) Seg Neutrophils % Seg Neuts % (Manual) Lymphocytes % (Manual) Nucleated RBC % Seg Neutrophils # Seg Neutrophils # Man Lymphocytes # (Manual) Monocytes # (Manual) Eosinophils # (Manual) PT INR APTT D-Dimer Heparin Anti-Xa Level ABG pH POC ABG pCO2 60.4 H POC ABG pO2 71.5 L ABG pO2 ABG HCO3 ABG O2 Saturation ABG Base Excess ABG Hemoglobin ABG Oxyhemoglobin ABG Sodium ABG Potassium ABG Chloride 96.0 L ABG Glucose 169 H Oxyhemoglobin Carboxyhemoglobin Sodium Potassium Chloride Carbon Dioxide BUN Creatinine Glucose POC Glucose 184 H 135 H Lactic Acid Calcium Phosphorus Magnesium Ferritin Total Bilirubin Direct Bilirubin AST ALT Alkaline Phosphatase Lactate Dehydrogenase C-Reactive Protein Total Protein Albumin Triglycerides Lipase Arterial Blood Glucose 169 H Arterial Blood Ionized Calcium 4.5 L Urine WBC (Auto) Coronavirus (PCR) SARS-CoV-2 IgG Ab Crossmatch 05/31/20 05/31/20 05/31/20 05:24 11:18 14:41 WBC RBC Hgb Hct MCV MCH MCHC RDW Lymph % (Auto) [place] % (Auto) Lymph # (Auto) [place] # (Auto) Baso # (Auto) Seg Neutrophils % Seg Neuts % (Manual) Lymphocytes % (Manual) Nucleated RBC % Seg Neutrophils # Seg Neutrophils # Man Lymphocytes # (Manual) Monocytes # (Manual) Eosinophils # (Manual) PT INR APTT D-Dimer Heparin Anti-Xa Level ABG pH POC ABG pCO2 POC ABG pO2 ABG pO2 ABG HCO3 ABG O2 Saturation ABG Base Excess ABG Hemoglobin ABG Oxyhemoglobin ABG Sodium ABG Potassium ABG Chloride ABG Glucose Oxyhemoglobin Carboxyhemoglobin Sodium Potassium Chloride 96.8 L Carbon Dioxide 37 H BUN 31 H Creatinine 0.6 L Glucose 213 H POC Glucose 164 H 208 H Lactic Acid Calcium Phosphorus Magnesium Ferritin Total Bilirubin Direct Bilirubin AST ALT Alkaline Phosphatase Lactate Dehydrogenase C-Reactive Protein Total Protein Albumin Triglycerides Lipase Arterial Blood Glucose Arterial Blood Ionized Calcium Urine WBC (Auto) Coronavirus (PCR) SARS-CoV-2 IgG Ab Crossmatch 05/31/20 05/31/20 06/01/20 17:37 23:47 03:48 WBC RBC Hgb Hct MCV MCH MCHC RDW Lymph % (Auto) [place] % (Auto) Lymph # (Auto) [place] # (Auto) Baso # (Auto) Seg Neutrophils % Seg Neuts % (Manual) Lymphocytes % (Manual) Nucleated RBC % Seg Neutrophils # Seg Neutrophils # Man Lymphocytes # (Manual) Monocytes # (Manual) Eosinophils # (Manual) PT INR APTT D-Dimer Heparin Anti-Xa Level ABG pH POC ABG pCO2 59.7 H POC ABG pO2 73.9 L ABG pO2 ABG HCO3 ABG O2 Saturation ABG Base Excess ABG Hemoglobin ABG Oxyhemoglobin ABG Sodium ABG Potassium ABG Chloride 95.0 L ABG Glucose 256 H Oxyhemoglobin Carboxyhemoglobin Sodium Potassium Chloride Carbon Dioxide BUN Creatinine Glucose POC Glucose 168 H 178 H Lactic Acid Calcium Phosphorus Magnesium Ferritin Total Bilirubin Direct Bilirubin AST ALT Alkaline Phosphatase Lactate Dehydrogenase C-Reactive Protein Total Protein Albumin Triglycerides Lipase Arterial Blood Glucose 256 H Arterial Blood Ionized Calcium Urine WBC (Auto) Coronavirus (PCR) SARS-CoV-2 IgG Ab Crossmatch 06/01/20 06/01/20 06/01/20 05:01 07:47 07:47 WBC 14.4 H RBC 3.46 L Hgb 11.1 L Hct 34.3 L MCV 99 H MCH MCHC RDW Lymph % (Auto) [place] % (Auto) Lymph # (Auto) [place] # (Auto) Baso # (Auto) Seg Neutrophils % Seg Neuts % (Manual) 86.0 H Lymphocytes % (Manual) 9.0 L Nucleated RBC % Seg Neutrophils # Seg Neutrophils # Man 12.4 H Lymphocytes # (Manual) Monocytes # (Manual) Eosinophils # (Manual) PT INR APTT D-Dimer Heparin Anti-Xa Level ABG pH POC ABG pCO2 POC ABG pO2 ABG pO2 ABG HCO3 ABG O2 Saturation ABG Base Excess ABG Hemoglobin ABG Oxyhemoglobin ABG Sodium ABG Potassium ABG Chloride ABG Glucose Oxyhemoglobin Carboxyhemoglobin Sodium Potassium Chloride Carbon Dioxide BUN Creatinine Glucose POC Glucose 197 H Lactic Acid Calcium Phosphorus Magnesium Ferritin Total Bilirubin Direct Bilirubin AST ALT Alkaline Phosphatase Lactate Dehydrogenase C-Reactive Protein Total Protein Albumin Triglycerides 244 H Lipase Arterial Blood Glucose Arterial Blood Ionized Calcium Urine WBC (Auto) Coronavirus (PCR) SARS-CoV-2 IgG Ab Crossmatch 06/01/20 06/01/20 06/01/20 07:47 11:46 18:15 WBC RBC Hgb Hct MCV MCH MCHC RDW Lymph % (Auto) [place] % (Auto) Lymph # (Auto) [place] # (Auto) Baso # (Auto) Seg Neutrophils % Seg Neuts % (Manual) Lymphocytes % (Manual) Nucleated RBC % Seg Neutrophils # Seg Neutrophils # Man Lymphocytes # (Manual) Monocytes # (Manual) Eosinophils # (Manual) PT INR APTT D-Dimer Heparin Anti-Xa Level ABG pH POC ABG pCO2 POC ABG pO2 ABG pO2 ABG HCO3 ABG O2 Saturation ABG Base Excess ABG Hemoglobin ABG Oxyhemoglobin ABG Sodium ABG Potassium ABG Chloride ABG Glucose Oxyhemoglobin Carboxyhemoglobin Sodium Potassium Chloride 95.4 L Carbon Dioxide 35 H BUN 30 H Creatinine 0.5 L Glucose 214 H POC Glucose 181 H 221 H Lactic Acid Calcium Phosphorus Magnesium Ferritin Total Bilirubin Direct Bilirubin AST 54 H ALT 235 H Alkaline Phosphatase Lactate Dehydrogenase C-Reactive Protein Total Protein Albumin 2.9 L Triglycerides Lipase Arterial Blood Glucose Arterial Blood Ionized Calcium Urine WBC (Auto) Coronavirus (PCR) SARS-CoV-2 IgG Ab Crossmatch 06/01/20 06/02/20 06/02/20 23:12 04:00 05:31 WBC RBC Hgb Hct MCV MCH MCHC RDW Lymph % (Auto) [place] % (Auto) Lymph # (Auto) [place] # (Auto) Baso # (Auto) Seg Neutrophils % Seg Neuts % (Manual) Lymphocytes % (Manual) Nucleated RBC % Seg Neutrophils # Seg Neutrophils # Man Lymphocytes # (Manual) Monocytes # (Manual) Eosinophils # (Manual) PT INR APTT D-Dimer Heparin Anti-Xa Level ABG pH 7.465 H POC ABG pCO2 POC ABG pO2 ABG pO2 203.4 H ABG HCO3 41.2 H ABG O2 Saturation 99.3 H ABG Base Excess 15.1 H ABG Hemoglobin 11.5 L ABG Oxyhemoglobin ABG Sodium ABG Potassium ABG Chloride ABG Glucose Oxyhemoglobin Carboxyhemoglobin Sodium Potassium Chloride Carbon Dioxide BUN Creatinine Glucose POC Glucose 197 H 184 H Lactic Acid Calcium Phosphorus Magnesium Ferritin Total Bilirubin Direct Bilirubin AST ALT Alkaline Phosphatase Lactate Dehydrogenase C-Reactive Protein Total Protein Albumin Triglycerides Lipase Arterial Blood Glucose Arterial Blood Ionized Calcium Urine WBC (Auto) Coronavirus (PCR) SARS-CoV-2 IgG Ab Crossmatch 06/02/20 06/02/20 06/02/20 11:49 18:06 23:00 WBC RBC Hgb Hct MCV MCH MCHC RDW Lymph % (Auto) [place] % (Auto) Lymph # (Auto) [place] # (Auto) Baso # (Auto) Seg Neutrophils % Seg Neuts % (Manual) Lymphocytes % (Manual) Nucleated RBC % Seg Neutrophils # Seg Neutrophils # Man Lymphocytes # (Manual) Monocytes # (Manual) Eosinophils # (Manual) PT INR APTT D-Dimer Heparin Anti-Xa Level ABG pH POC ABG pCO2 POC ABG pO2 ABG pO2 ABG HCO3 ABG O2 Saturation ABG Base Excess ABG Hemoglobin ABG Oxyhemoglobin ABG Sodium ABG Potassium ABG Chloride ABG Glucose Oxyhemoglobin Carboxyhemoglobin Sodium Potassium Chloride Carbon Dioxide BUN Creatinine Glucose POC Glucose 195 H 177 H 228 H Lactic Acid Calcium Phosphorus Magnesium Ferritin Total Bilirubin Direct Bilirubin AST ALT Alkaline Phosphatase Lactate Dehydrogenase C-Reactive Protein Total Protein Albumin Triglycerides Lipase Arterial Blood Glucose Arterial Blood Ionized Calcium Urine WBC (Auto) Coronavirus (PCR) SARS-CoV-2 IgG Ab Crossmatch 06/03/20 06/03/20 06/03/20 03:58 05:19 12:21 WBC RBC Hgb Hct MCV MCH MCHC RDW Lymph % (Auto) [place] % (Auto) Lymph # (Auto) [place] # (Auto) Baso # (Auto) Seg Neutrophils % Seg Neuts % (Manual) Lymphocytes % (Manual) Nucleated RBC % Seg Neutrophils # Seg Neutrophils # Man Lymphocytes # (Manual) Monocytes # (Manual) Eosinophils # (Manual) PT INR APTT D-Dimer Heparin Anti-Xa Level ABG pH POC ABG pCO2 POC ABG pO2 ABG pO2 171.0 H ABG HCO3 42.8 H ABG O2 Saturation ABG Base Excess 15.6 H ABG Hemoglobin 12.3 L ABG Oxyhemoglobin ABG Sodium ABG Potassium ABG Chloride ABG Glucose Oxyhemoglobin Carboxyhemoglobin Sodium Potassium Chloride Carbon Dioxide BUN Creatinine Glucose POC Glucose 122 H 207 H Lactic Acid Calcium Phosphorus Magnesium Ferritin Total Bilirubin Direct Bilirubin AST ALT Alkaline Phosphatase Lactate Dehydrogenase C-Reactive Protein Total Protein Albumin Triglycerides Lipase Arterial Blood Glucose Arterial Blood Ionized Calcium Urine WBC (Auto) Coronavirus (PCR) SARS-CoV-2 IgG Ab Crossmatch 06/03/20 06/03/20 06/04/20 17:27 23:50 03:55 WBC RBC Hgb Hct MCV MCH MCHC RDW Lymph % (Auto) [place] % (Auto) Lymph # (Auto) [place] # (Auto) Baso # (Auto) Seg Neutrophils % Seg Neuts % (Manual) Lymphocytes % (Manual) Nucleated RBC % Seg Neutrophils # Seg Neutrophils # Man Lymphocytes # (Manual) Monocytes # (Manual) Eosinophils # (Manual) PT INR APTT D-Dimer Heparin Anti-Xa Level ABG pH POC ABG pCO2 POC ABG pO2 ABG pO2 117.2 H ABG HCO3 42.4 H ABG O2 Saturation ABG Base Excess 15.3 H ABG Hemoglobin 10.5 L ABG Oxyhemoglobin ABG Sodium ABG Potassium ABG Chloride ABG Glucose Oxyhemoglobin Carboxyhemoglobin Sodium Potassium Chloride Carbon Dioxide BUN Creatinine Glucose POC Glucose 157 H 214 H Lactic Acid Calcium Phosphorus Magnesium Ferritin Total Bilirubin Direct Bilirubin AST ALT Alkaline Phosphatase Lactate Dehydrogenase C-Reactive Protein Total Protein Albumin Triglycerides Lipase Arterial Blood Glucose Arterial Blood Ionized Calcium Urine WBC (Auto) Coronavirus (PCR) SARS-CoV-2 IgG Ab Crossmatch 06/04/20 06/04/20 06/04/20 05:49 11:41 17:30 WBC RBC Hgb Hct MCV MCH MCHC RDW Lymph % (Auto) [place] % (Auto) Lymph # (Auto) [place] # (Auto) Baso # (Auto) Seg Neutrophils % Seg Neuts % (Manual) Lymphocytes % (Manual) Nucleated RBC % Seg Neutrophils # Seg Neutrophils # Man Lymphocytes # (Manual) Monocytes # (Manual) Eosinophils # (Manual) PT INR APTT D-Dimer Heparin Anti-Xa Level ABG pH POC ABG pCO2 POC ABG pO2 ABG pO2 ABG HCO3 ABG O2 Saturation ABG Base Excess ABG Hemoglobin ABG Oxyhemoglobin ABG Sodium ABG Potassium ABG Chloride ABG Glucose Oxyhemoglobin Carboxyhemoglobin Sodium Potassium Chloride Carbon Dioxide BUN Creatinine Glucose POC Glucose 149 H 233 H 156 H Lactic Acid Calcium Phosphorus Magnesium Ferritin Total Bilirubin Direct Bilirubin AST ALT Alkaline Phosphatase Lactate Dehydrogenase C-Reactive Protein Total Protein Albumin Triglycerides Lipase Arterial Blood Glucose Arterial Blood Ionized Calcium Urine WBC (Auto) Coronavirus (PCR) SARS-CoV-2 IgG Ab Crossmatch 06/04/20 06/04/20 06/04/20 19:01 20:53 23:41 WBC RBC 3.18 L Hgb 10.8 L Hct 31.8 L MCV 100 H MCH 34 H MCHC RDW Lymph % (Auto) [place] % (Auto) Lymph # (Auto) [place] # (Auto) Baso # (Auto) Seg Neutrophils % Seg Neuts % (Manual) 86.0 H Lymphocytes % (Manual) 10.0 L Nucleated RBC % 1.0 H Seg Neutrophils # Seg Neutrophils # Man 8.5 H Lymphocytes # (Manual) 1.0 L Monocytes # (Manual) Eosinophils # (Manual) PT INR APTT D-Dimer Heparin Anti-Xa Level ABG pH POC ABG pCO2 POC ABG pO2 ABG pO2 ABG HCO3 ABG O2 Saturation ABG Base Excess ABG Hemoglobin ABG Oxyhemoglobin ABG Sodium ABG Potassium ABG Chloride ABG Glucose Oxyhemoglobin Carboxyhemoglobin Sodium Potassium 3.4 L D Chloride 96.5 L Carbon Dioxide 41 H* BUN 27 H Creatinine 0.5 L Glucose 173 H POC Glucose 217 H Lactic Acid Calcium Phosphorus Magnesium Ferritin Total Bilirubin Direct Bilirubin AST ALT Alkaline Phosphatase Lactate Dehydrogenase C-Reactive Protein Total Protein Albumin Triglycerides Lipase Arterial Blood Glucose Arterial Blood Ionized Calcium Urine WBC (Auto) Coronavirus (PCR) SARS-CoV-2 IgG Ab Crossmatch 06/05/20 06/05/20 06/05/20 06:05 11:54 12:35 WBC RBC Hgb Hct MCV MCH MCHC RDW Lymph % (Auto) [place] % (Auto) Lymph # (Auto) [place] # (Auto) Baso # (Auto) Seg Neutrophils % Seg Neuts % (Manual) Lymphocytes % (Manual) Nucleated RBC % Seg Neutrophils # Seg Neutrophils # Man Lymphocytes # (Manual) Monocytes # (Manual) Eosinophils # (Manual) PT INR APTT D-Dimer Heparin Anti-Xa Level ABG pH POC ABG pCO2 POC ABG pO2 ABG pO2 127.9 H ABG HCO3 41.1 H ABG O2 Saturation ABG Base Excess 13.0 H ABG Hemoglobin 13.4 L ABG Oxyhemoglobin ABG Sodium ABG Potassium ABG Chloride ABG Glucose Oxyhemoglobin Carboxyhemoglobin Sodium Potassium Chloride Carbon Dioxide BUN Creatinine Glucose POC Glucose 137 H 211 H Lactic Acid Calcium Phosphorus Magnesium Ferritin Total Bilirubin Direct Bilirubin AST ALT Alkaline Phosphatase Lactate Dehydrogenase C-Reactive Protein Total Protein Albumin Triglycerides Lipase Arterial Blood Glucose Arterial Blood Ionized Calcium Urine WBC (Auto) Coronavirus (PCR) SARS-CoV-2 IgG Ab Crossmatch 06/05/20 06/05/20 06/06/20 17:03 23:49 04:42 WBC RBC Hgb Hct MCV MCH MCHC RDW Lymph % (Auto) [place] % (Auto) Lymph # (Auto) [place] # (Auto) Baso # (Auto) Seg Neutrophils % Seg Neuts % (Manual) Lymphocytes % (Manual) Nucleated RBC % Seg Neutrophils # Seg Neutrophils # Man Lymphocytes # (Manual) Monocytes # (Manual) Eosinophils # (Manual) PT INR APTT D-Dimer Heparin Anti-Xa Level ABG pH POC ABG pCO2 56.1 H POC ABG pO2 52.5 L ABG pO2 ABG HCO3 ABG O2 Saturation ABG Base Excess ABG Hemoglobin 11.7 L ABG Oxyhemoglobin ABG Sodium ABG Potassium 3.3 L ABG Chloride 95.0 L ABG Glucose 156 H Oxyhemoglobin Carboxyhemoglobin Sodium Potassium Chloride Carbon Dioxide BUN Creatinine Glucose POC Glucose 159 H 194 H Lactic Acid Calcium Phosphorus Magnesium Ferritin Total Bilirubin Direct Bilirubin AST ALT Alkaline Phosphatase Lactate Dehydrogenase C-Reactive Protein Total Protein Albumin Triglycerides Lipase Arterial Blood Glucose 156 H Arterial Blood Ionized Calcium Urine WBC (Auto) Coronavirus (PCR) SARS-CoV-2 IgG Ab Crossmatch 06/06/20 06/06/20 06/06/20 05:57 12:06 17:38 WBC RBC Hgb Hct MCV MCH MCHC RDW Lymph % (Auto) [place] % (Auto) Lymph # (Auto) [place] # (Auto) Baso # (Auto) Seg Neutrophils % Seg Neuts % (Manual) Lymphocytes % (Manual) Nucleated RBC % Seg Neutrophils # Seg Neutrophils # Man Lymphocytes # (Manual) Monocytes # (Manual) Eosinophils # (Manual) PT INR APTT D-Dimer Heparin Anti-Xa Level ABG pH POC ABG pCO2 POC ABG pO2 ABG pO2 ABG HCO3 ABG O2 Saturation ABG Base Excess ABG Hemoglobin ABG Oxyhemoglobin ABG Sodium ABG Potassium ABG Chloride ABG Glucose Oxyhemoglobin Carboxyhemoglobin Sodium Potassium Chloride Carbon Dioxide BUN Creatinine Glucose POC Glucose 144 H 230 H 162 H Lactic Acid Calcium Phosphorus Magnesium Ferritin Total Bilirubin Direct Bilirubin AST ALT Alkaline Phosphatase Lactate Dehydrogenase C-Reactive Protein Total Protein Albumin Triglycerides Lipase Arterial Blood Glucose Arterial Blood Ionized Calcium Urine WBC (Auto) Coronavirus (PCR) SARS-CoV-2 IgG Ab Crossmatch 06/06/20 06/07/20 06/07/20 23:50 04:34 06:03 WBC RBC Hgb Hct MCV MCH MCHC RDW Lymph % (Auto) [place] % (Auto) Lymph # (Auto) [place] # (Auto) Baso # (Auto) Seg Neutrophils % Seg Neuts % (Manual) Lymphocytes % (Manual) Nucleated RBC % Seg Neutrophils # Seg Neutrophils # Man Lymphocytes # (Manual) Monocytes # (Manual) Eosinophils # (Manual) PT INR APTT D-Dimer Heparin Anti-Xa Level ABG pH 7.511 H POC ABG pCO2 53.5 H POC ABG pO2 114.5 H ABG pO2 ABG HCO3 ABG O2 Saturation ABG Base Excess ABG Hemoglobin 9.4 L ABG Oxyhemoglobin ABG Sodium 134.5 L ABG Potassium ABG Chloride 94.0 L ABG Glucose 186 H Oxyhemoglobin Carboxyhemoglobin Sodium Potassium Chloride Carbon Dioxide BUN Creatinine Glucose POC Glucose 181 H 155 H Lactic Acid Calcium Phosphorus Magnesium Ferritin Total Bilirubin Direct Bilirubin AST ALT Alkaline Phosphatase Lactate Dehydrogenase C-Reactive Protein Total Protein Albumin Triglycerides Lipase Arterial Blood Glucose 186 H Arterial Blood Ionized Calcium 4.5 L Urine WBC (Auto) Coronavirus (PCR) SARS-CoV-2 IgG Ab Crossmatch 06/07/20 06/07/20 06/07/20 13:41 14:58 14:58 WBC RBC 2.72 L Hgb 9.3 L Hct 27.2 L MCV 100 H MCH 34 H MCHC RDW Lymph % (Auto) [place] % (Auto) Lymph # (Auto) [place] # (Auto) Baso # (Auto) Seg Neutrophils % Seg Neuts % (Manual) Lymphocytes % (Manual) Nucleated RBC % Seg Neutrophils # Seg Neutrophils # Man Lymphocytes # (Manual) Monocytes # (Manual) Eosinophils # (Manual) PT INR APTT D-Dimer Heparin Anti-Xa Level ABG pH POC ABG pCO2 POC ABG pO2 ABG pO2 ABG HCO3 ABG O2 Saturation ABG Base Excess ABG Hemoglobin ABG Oxyhemoglobin ABG Sodium ABG Potassium ABG Chloride ABG Glucose Oxyhemoglobin Carboxyhemoglobin Sodium Potassium Chloride 93.5 L Carbon Dioxide 39 H BUN 22 H Creatinine 0.4 L Glucose 188 H POC Glucose 201 H Lactic Acid Calcium Phosphorus Magnesium Ferritin Total Bilirubin Direct Bilirubin AST 61 H ALT 273 H Alkaline Phosphatase Lactate Dehydrogenase C-Reactive Protein Total Protein 5.9 L Albumin 2.7 L Triglycerides Lipase Arterial Blood Glucose Arterial Blood Ionized Calcium Urine WBC (Auto) Coronavirus (PCR) SARS-CoV-2 IgG Ab Crossmatch 06/07/20 06/08/20 06/08/20 23:18 05:31 12:07 WBC RBC Hgb Hct MCV MCH MCHC RDW Lymph % (Auto) [place] % (Auto) Lymph # (Auto) [place] # (Auto) Baso # (Auto) Seg Neutrophils % Seg Neuts % (Manual) Lymphocytes % (Manual) Nucleated RBC % Seg Neutrophils # Seg Neutrophils # Man Lymphocytes # (Manual) Monocytes # (Manual) Eosinophils # (Manual) PT INR APTT D-Dimer Heparin Anti-Xa Level ABG pH POC ABG pCO2 POC ABG pO2 ABG pO2 ABG HCO3 ABG O2 Saturation ABG Base Excess ABG Hemoglobin ABG Oxyhemoglobin ABG Sodium ABG Potassium ABG Chloride ABG Glucose Oxyhemoglobin Carboxyhemoglobin Sodium Potassium Chloride Carbon Dioxide BUN Creatinine Glucose POC Glucose 214 H 129 H 179 H Lactic Acid Calcium Phosphorus Magnesium Ferritin Total Bilirubin Direct Bilirubin AST ALT Alkaline Phosphatase Lactate Dehydrogenase C-Reactive Protein Total Protein Albumin Triglycerides Lipase Arterial Blood Glucose Arterial Blood Ionized Calcium Urine WBC (Auto) Coronavirus (PCR) SARS-CoV-2 IgG Ab Crossmatch 06/08/20 06/08/20 06/09/20 18:18 23:35 05:42 WBC RBC Hgb Hct MCV MCH MCHC RDW Lymph % (Auto) [place] % (Auto) Lymph # (Auto) [place] # (Auto) Baso # (Auto) Seg Neutrophils % Seg Neuts % (Manual) Lymphocytes % (Manual) Nucleated RBC % Seg Neutrophils # Seg Neutrophils # Man Lymphocytes # (Manual) Monocytes # (Manual) Eosinophils # (Manual) PT INR APTT D-Dimer Heparin Anti-Xa Level ABG pH POC ABG pCO2 POC ABG pO2 ABG pO2 ABG HCO3 ABG O2 Saturation ABG Base Excess ABG Hemoglobin ABG Oxyhemoglobin ABG Sodium ABG Potassium ABG Chloride ABG Glucose Oxyhemoglobin Carboxyhemoglobin Sodium Potassium Chloride Carbon Dioxide BUN Creatinine Glucose POC Glucose 172 H 177 H 137 H Lactic Acid Calcium Phosphorus Magnesium Ferritin Total Bilirubin Direct Bilirubin AST ALT Alkaline Phosphatase Lactate Dehydrogenase C-Reactive Protein Total Protein Albumin Triglycerides Lipase Arterial Blood Glucose Arterial Blood Ionized Calcium Urine WBC (Auto) Coronavirus (PCR) SARS-CoV-2 IgG Ab Crossmatch 06/09/20 06/09/20 06/09/20 06:20 07:55 07:55 WBC 12.4 H RBC 3.26 L Hgb 11.1 L Hct 33.4 L D MCV 102 H MCH 34 H MCHC RDW Lymph % (Auto) [place] % (Auto) Lymph # (Auto) [place] # (Auto) Baso # (Auto) Seg Neutrophils % Seg Neuts % (Manual) Lymphocytes % (Manual) Nucleated RBC % Seg Neutrophils # Seg Neutrophils # Man Lymphocytes # (Manual) Monocytes # (Manual) Eosinophils # (Manual) PT INR APTT D-Dimer Heparin Anti-Xa Level ABG pH 7.466 H POC ABG pCO2 50.7 H POC ABG pO2 53.0 L ABG pO2 ABG HCO3 ABG O2 Saturation ABG Base Excess ABG Hemoglobin ABG Oxyhemoglobin ABG Sodium ABG Potassium 2.9 L ABG Chloride 93.0 L ABG Glucose 138 H Oxyhemoglobin Carboxyhemoglobin Sodium Potassium 3.0 L Chloride 92.3 L Carbon Dioxide 37 H BUN 21 H Creatinine 0.6 L Glucose 120 H POC Glucose Lactic Acid Calcium Phosphorus Magnesium Ferritin Total Bilirubin Direct Bilirubin AST ALT Alkaline Phosphatase Lactate Dehydrogenase C-Reactive Protein Total Protein Albumin Triglycerides Lipase Arterial Blood Glucose 138 H Arterial Blood Ionized Calcium 4.5 L Urine WBC (Auto) Coronavirus (PCR) SARS-CoV-2 IgG Ab Crossmatch 06/09/20 06/09/20 06/10/20 11:22 18:32 04:46 WBC RBC Hgb Hct MCV MCH MCHC RDW Lymph % (Auto) [place] % (Auto) Lymph # (Auto) [place] # (Auto) Baso # (Auto) Seg Neutrophils % Seg Neuts % (Manual) Lymphocytes % (Manual) Nucleated RBC % Seg Neutrophils # Seg Neutrophils # Man Lymphocytes # (Manual) Monocytes # (Manual) Eosinophils # (Manual) PT INR APTT D-Dimer Heparin Anti-Xa Level ABG pH 7.501 H POC ABG pCO2 POC ABG pO2 126.5 H ABG pO2 ABG HCO3 ABG O2 Saturation ABG Base Excess ABG Hemoglobin 10.3 L ABG Oxyhemoglobin ABG Sodium ABG Potassium ABG Chloride ABG Glucose 220 H Oxyhemoglobin Carboxyhemoglobin Sodium Potassium Chloride Carbon Dioxide BUN Creatinine Glucose POC Glucose 117 H 121 H Lactic Acid Calcium Phosphorus Magnesium Ferritin Total Bilirubin Direct Bilirubin AST ALT Alkaline Phosphatase Lactate Dehydrogenase C-Reactive Protein Total Protein Albumin Triglycerides Lipase Arterial Blood Glucose 220 H Arterial Blood Ionized Calcium Urine WBC (Auto) Coronavirus (PCR) SARS-CoV-2 IgG Ab Crossmatch 06/10/20 06/10/20 06/10/20 05:30 09:38 12:03 WBC RBC Hgb Hct MCV MCH MCHC RDW Lymph % (Auto) [place] % (Auto) Lymph # (Auto) [place] # (Auto) Baso # (Auto) Seg Neutrophils % Seg Neuts % (Manual) Lymphocytes % (Manual) Nucleated RBC % Seg Neutrophils # Seg Neutrophils # Man Lymphocytes # (Manual) Monocytes # (Manual) Eosinophils # (Manual) PT INR APTT D-Dimer Heparin Anti-Xa Level ABG pH POC ABG pCO2 POC ABG pO2 ABG pO2 ABG HCO3 ABG O2 Saturation ABG Base Excess ABG Hemoglobin ABG Oxyhemoglobin ABG Sodium ABG Potassium ABG Chloride ABG Glucose Oxyhemoglobin Carboxyhemoglobin Sodium Potassium Chloride Carbon Dioxide BUN Creatinine Glucose POC Glucose 181 H 204 H Lactic Acid Calcium Phosphorus Magnesium Ferritin Total Bilirubin Direct Bilirubin AST ALT Alkaline Phosphatase Lactate Dehydrogenase C-Reactive Protein Total Protein Albumin Triglycerides 738 H Lipase Arterial Blood Glucose Arterial Blood Ionized Calcium Urine WBC (Auto) Coronavirus (PCR) SARS-CoV-2 IgG Ab Crossmatch 06/10/20 06/11/20 06/11/20 17:17 00:04 04:38 WBC RBC Hgb Hct MCV MCH MCHC RDW Lymph % (Auto) [place] % (Auto) Lymph # (Auto) [place] # (Auto) Baso # (Auto) Seg Neutrophils % Seg Neuts % (Manual) Lymphocytes % (Manual) Nucleated RBC % Seg Neutrophils # Seg Neutrophils # Man Lymphocytes # (Manual) Monocytes # (Manual) Eosinophils # (Manual) PT INR APTT D-Dimer Heparin Anti-Xa Level ABG pH 7.479 H POC ABG pCO2 POC ABG pO2 76.7 L ABG pO2 ABG HCO3 ABG O2 Saturation ABG Base Excess ABG Hemoglobin 9.8 L ABG Oxyhemoglobin ABG Sodium 135.8 L ABG Potassium ABG Chloride ABG Glucose 238 H Oxyhemoglobin Carboxyhemoglobin Sodium Potassium Chloride Carbon Dioxide BUN Creatinine Glucose POC Glucose 156 H 178 H Lactic Acid Calcium Phosphorus Magnesium Ferritin Total Bilirubin Direct Bilirubin AST ALT Alkaline Phosphatase Lactate Dehydrogenase C-Reactive Protein Total Protein Albumin Triglycerides Lipase Arterial Blood Glucose 238 H Arterial Blood Ionized Calcium Urine WBC (Auto) Coronavirus (PCR) SARS-CoV-2 IgG Ab Crossmatch 06/11/20 06/11/20 06/11/20 05:21 06:52 11:50 WBC RBC Hgb Hct MCV MCH MCHC RDW Lymph % (Auto) [place] % (Auto) Lymph # (Auto) [place] # (Auto) Baso # (Auto) Seg Neutrophils % Seg Neuts % (Manual) Lymphocytes % (Manual) Nucleated RBC % Seg Neutrophils # Seg Neutrophils # Man Lymphocytes # (Manual) Monocytes # (Manual) Eosinophils # (Manual) PT INR APTT D-Dimer Heparin Anti-Xa Level ABG pH POC ABG pCO2 POC ABG pO2 ABG pO2 ABG HCO3 ABG O2 Saturation ABG Base Excess ABG Hemoglobin ABG Oxyhemoglobin ABG Sodium ABG Potassium ABG Chloride ABG Glucose Oxyhemoglobin Carboxyhemoglobin Sodium Potassium Chloride Carbon Dioxide BUN Creatinine Glucose POC Glucose 215 H 187 H Lactic Acid Calcium Phosphorus Magnesium Ferritin Total Bilirubin Direct Bilirubin AST ALT Alkaline Phosphatase Lactate Dehydrogenase C-Reactive Protein Total Protein Albumin Triglycerides 331 H Lipase Arterial Blood Glucose Arterial Blood Ionized Calcium Urine WBC (Auto) Coronavirus (PCR) SARS-CoV-2 IgG Ab Crossmatch 06/11/20 06/11/20 06/12/20 17:49 23:35 04:52 WBC RBC Hgb Hct MCV MCH MCHC RDW Lymph % (Auto) [place] % (Auto) Lymph # (Auto) [place] # (Auto) Baso # (Auto) Seg Neutrophils % Seg Neuts % (Manual) Lymphocytes % (Manual) Nucleated RBC % Seg Neutrophils # Seg Neutrophils # Man Lymphocytes # (Manual) Monocytes # (Manual) Eosinophils # (Manual) PT INR APTT D-Dimer Heparin Anti-Xa Level ABG pH 7.486 H POC ABG pCO2 POC ABG pO2 ABG pO2 ABG HCO3 ABG O2 Saturation ABG Base Excess ABG Hemoglobin 9.4 L ABG Oxyhemoglobin ABG Sodium ABG Potassium 3.2 L ABG Chloride ABG Glucose 209 H Oxyhemoglobin Carboxyhemoglobin Sodium Potassium Chloride Carbon Dioxide BUN Creatinine Glucose POC Glucose 211 H 200 H Lactic Acid Calcium Phosphorus Magnesium Ferritin Total Bilirubin Direct Bilirubin AST ALT Alkaline Phosphatase Lactate Dehydrogenase C-Reactive Protein Total Protein Albumin Triglycerides Lipase Arterial Blood Glucose 209 H Arterial Blood Ionized Calcium Urine WBC (Auto) Coronavirus (PCR) SARS-CoV-2 IgG Ab Crossmatch 06/12/20 06/12/20 06/12/20 05:13 11:47 18:33 WBC RBC Hgb Hct MCV MCH MCHC RDW Lymph % (Auto) [place] % (Auto) Lymph # (Auto) [place] # (Auto) Baso # (Auto) Seg Neutrophils % Seg Neuts % (Manual) Lymphocytes % (Manual) Nucleated RBC % Seg Neutrophils # Seg Neutrophils # Man Lymphocytes # (Manual) Monocytes # (Manual) Eosinophils # (Manual) PT INR APTT D-Dimer Heparin Anti-Xa Level ABG pH POC ABG pCO2 POC ABG pO2 ABG pO2 ABG HCO3 ABG O2 Saturation ABG Base Excess ABG Hemoglobin ABG Oxyhemoglobin ABG Sodium ABG Potassium ABG Chloride ABG Glucose Oxyhemoglobin Carboxyhemoglobin Sodium Potassium Chloride Carbon Dioxide BUN Creatinine Glucose POC Glucose 174 H 214 H 194 H Lactic Acid Calcium Phosphorus Magnesium Ferritin Total Bilirubin Direct Bilirubin AST ALT Alkaline Phosphatase Lactate Dehydrogenase C-Reactive Protein Total Protein Albumin Triglycerides Lipase Arterial Blood Glucose Arterial Blood Ionized Calcium Urine WBC (Auto) Coronavirus (PCR) SARS-CoV-2 IgG Ab Crossmatch 06/12/20 06/13/20 06/13/20 23:49 05:41 12:30 WBC RBC Hgb Hct MCV MCH MCHC RDW Lymph % (Auto) [place] % (Auto) Lymph # (Auto) [place] # (Auto) Baso # (Auto) Seg Neutrophils % Seg Neuts % (Manual) Lymphocytes % (Manual) Nucleated RBC % Seg Neutrophils # Seg Neutrophils # Man Lymphocytes # (Manual) Monocytes # (Manual) Eosinophils # (Manual) PT INR APTT D-Dimer Heparin Anti-Xa Level ABG pH POC ABG pCO2 POC ABG pO2 ABG pO2 ABG HCO3 ABG O2 Saturation ABG Base Excess ABG Hemoglobin ABG Oxyhemoglobin ABG Sodium ABG Potassium ABG Chloride ABG Glucose Oxyhemoglobin Carboxyhemoglobin Sodium Potassium Chloride Carbon Dioxide BUN Creatinine Glucose POC Glucose 160 H 150 H 181 H Lactic Acid Calcium Phosphorus Magnesium Ferritin Total Bilirubin Direct Bilirubin AST ALT Alkaline Phosphatase Lactate Dehydrogenase C-Reactive Protein Total Protein Albumin Triglycerides Lipase Arterial Blood Glucose Arterial Blood Ionized Calcium Urine WBC (Auto) Coronavirus (PCR) SARS-CoV-2 IgG Ab Crossmatch 06/13/20 06/13/20 06/13/20 14:14 17:48 23:27 WBC 12.8 H RBC 2.33 L Hgb 8.0 L Hct 23.3 L MCV 100 H MCH 34 H MCHC RDW 15.7 H Lymph % (Auto) [place] % (Auto) Lymph # (Auto) [place] # (Auto) Baso # (Auto) Seg Neutrophils % Seg Neuts % (Manual) 85.0 H Lymphocytes % (Manual) 10.0 L Nucleated RBC % Seg Neutrophils # Seg Neutrophils # Man 10.9 H Lymphocytes # (Manual) Monocytes # (Manual) Eosinophils # (Manual) PT INR APTT D-Dimer Heparin Anti-Xa Level ABG pH POC ABG pCO2 POC ABG pO2 ABG pO2 ABG HCO3 ABG O2 Saturation ABG Base Excess ABG Hemoglobin ABG Oxyhemoglobin ABG Sodium ABG Potassium ABG Chloride ABG Glucose Oxyhemoglobin Carboxyhemoglobin Sodium Potassium Chloride Carbon Dioxide BUN Creatinine Glucose POC Glucose 173 H 154 H Lactic Acid Calcium Phosphorus Magnesium Ferritin Total Bilirubin Direct Bilirubin AST ALT Alkaline Phosphatase Lactate Dehydrogenase C-Reactive Protein Total Protein Albumin Triglycerides Lipase Arterial Blood Glucose Arterial Blood Ionized Calcium Urine WBC (Auto) Coronavirus (PCR) SARS-CoV-2 IgG Ab Crossmatch 06/14/20 06/14/20 06/14/20 03:58 05:21 07:15 WBC 26.2 H RBC 2.97 L Hgb 9.7 L Hct 29.9 L D MCV 101 H MCH 33 H MCHC RDW 15.3 H Lymph % (Auto) [place] % (Auto) Lymph # (Auto) [place] # (Auto) Baso # (Auto) Seg Neutrophils % Seg Neuts % (Manual) 79.0 H Lymphocytes % (Manual) 5.0 L Nucleated RBC % 3.0 H Seg Neutrophils # Seg Neutrophils # Man 20.7 H Lymphocytes # (Manual) Monocytes # (Manual) 1.3 H Eosinophils # (Manual) PT INR APTT D-Dimer Heparin Anti-Xa Level ABG pH POC ABG pCO2 51.5 H POC ABG pO2 70.0 L ABG pO2 ABG HCO3 ABG O2 Saturation ABG Base Excess ABG Hemoglobin 10.1 L ABG Oxyhemoglobin ABG Sodium 131.5 L ABG Potassium 3.1 L ABG Chloride 93.0 L ABG Glucose 188 H Oxyhemoglobin Carboxyhemoglobin Sodium Potassium Chloride Carbon Dioxide BUN Creatinine Glucose POC Glucose 147 H Lactic Acid Calcium Phosphorus Magnesium Ferritin Total Bilirubin Direct Bilirubin AST ALT Alkaline Phosphatase Lactate Dehydrogenase C-Reactive Protein Total Protein Albumin Triglycerides Lipase Arterial Blood Glucose 188 H Arterial Blood Ionized Calcium Urine WBC (Auto) Coronavirus (PCR) SARS-CoV-2 IgG Ab Crossmatch 06/14/20 06/14/20 06/14/20 07:15 11:30 11:50 WBC RBC Hgb Hct MCV MCH MCHC RDW Lymph % (Auto) [place] % (Auto) Lymph # (Auto) [place] # (Auto) Baso # (Auto) Seg Neutrophils % Seg Neuts % (Manual) Lymphocytes % (Manual) Nucleated RBC % Seg Neutrophils # Seg Neutrophils # Man Lymphocytes # (Manual) Monocytes # (Manual) Eosinophils # (Manual) PT INR APTT D-Dimer Heparin Anti-Xa Level ABG pH POC ABG pCO2 POC ABG pO2 ABG pO2 ABG HCO3 ABG O2 Saturation ABG Base Excess ABG Hemoglobin ABG Oxyhemoglobin ABG Sodium ABG Potassium ABG Chloride ABG Glucose Oxyhemoglobin Carboxyhemoglobin Sodium 135 L Potassium 3.5 L Chloride 90.4 L Carbon Dioxide 38 H BUN Creatinine 0.5 L Glucose 190 H POC Glucose 176 H Lactic Acid Calcium Phosphorus Magnesium Ferritin 1496.0 H Total Bilirubin Direct Bilirubin AST ALT 81 H Alkaline Phosphatase Lactate Dehydrogenase C-Reactive Protein Total Protein Albumin 2.9 L Triglycerides Lipase Arterial Blood Glucose Arterial Blood Ionized Calcium Urine WBC (Auto) Coronavirus (PCR) SARS-CoV-2 IgG Ab Crossmatch 06/14/20 06/15/20 06/15/20 23:31 04:00 05:00 WBC RBC Hgb Hct MCV MCH MCHC RDW Lymph % (Auto) [place] % (Auto) Lymph # (Auto) [place] # (Auto) Baso # (Auto) Seg Neutrophils % Seg Neuts % (Manual) Lymphocytes % (Manual) Nucleated RBC % Seg Neutrophils # Seg Neutrophils # Man Lymphocytes # (Manual) Monocytes # (Manual) Eosinophils # (Manual) PT INR APTT D-Dimer Heparin Anti-Xa Level ABG pH POC ABG pCO2 POC ABG pO2 ABG pO2 ABG HCO3 ABG O2 Saturation ABG Base Excess ABG Hemoglobin ABG Oxyhemoglobin ABG Sodium ABG Potassium ABG Chloride ABG Glucose Oxyhemoglobin Carboxyhemoglobin Sodium 133 L Potassium Chloride 91.1 L Carbon Dioxide 34 H BUN Creatinine 0.4 L Glucose 159 H POC Glucose 200 H Lactic Acid Calcium Phosphorus Magnesium Ferritin Total Bilirubin 2.00 H Direct Bilirubin AST 47 H ALT 77 H Alkaline Phosphatase Lactate Dehydrogenase C-Reactive Protein Total Protein Albumin 2.6 L Triglycerides 152 H Lipase Arterial Blood Glucose Arterial Blood Ionized Calcium Urine WBC (Auto) Coronavirus (PCR) SARS-CoV-2 IgG Ab Crossmatch 06/15/20 06/15/20 06/15/20 05:35 06:27 11:38 WBC RBC Hgb Hct MCV MCH MCHC RDW Lymph % (Auto) [place] % (Auto) Lymph # (Auto) [place] # (Auto) Baso # (Auto) Seg Neutrophils % Seg Neuts % (Manual) Lymphocytes % (Manual) Nucleated RBC % Seg Neutrophils # Seg Neutrophils # Man Lymphocytes # (Manual) Monocytes # (Manual) Eosinophils # (Manual) PT INR APTT D-Dimer Heparin Anti-Xa Level ABG pH POC ABG pCO2 61.0 H POC ABG pO2 67.9 L ABG pO2 ABG HCO3 ABG O2 Saturation ABG Base Excess ABG Hemoglobin 10.4 L ABG Oxyhemoglobin ABG Sodium 132.7 L ABG Potassium 3.3 L ABG Chloride 92.0 L ABG Glucose 158 H Oxyhemoglobin Carboxyhemoglobin Sodium Potassium Chloride Carbon Dioxide BUN Creatinine Glucose POC Glucose 148 H 197 H Lactic Acid Calcium Phosphorus Magnesium Ferritin Total Bilirubin Direct Bilirubin AST ALT Alkaline Phosphatase Lactate Dehydrogenase C-Reactive Protein Total Protein Albumin Triglycerides Lipase Arterial Blood Glucose 158 H Arterial Blood Ionized Calcium Urine WBC (Auto) Coronavirus (PCR) SARS-CoV-2 IgG Ab Crossmatch 06/15/20 06/15/20 06/16/20 17:29 Unknown 00:01 WBC 20.7 H RBC 2.57 L Hgb 8.9 L Hct 25.8 L MCV 101 H MCH 35 H MCHC 35 H RDW 16.0 H Lymph % (Auto) [place] % (Auto) Lymph # (Auto) [place] # (Auto) Baso # (Auto) Seg Neutrophils % Seg Neuts % (Manual) 83.0 H Lymphocytes % (Manual) 8.0 L Nucleated RBC % Seg Neutrophils # Seg Neutrophils # Man 17.2 H Lymphocytes # (Manual) Monocytes # (Manual) 1.2 H Eosinophils # (Manual) PT INR APTT D-Dimer Heparin Anti-Xa Level ABG pH POC ABG pCO2 POC ABG pO2 ABG pO2 ABG HCO3 ABG O2 Saturation ABG Base Excess ABG Hemoglobin ABG Oxyhemoglobin ABG Sodium ABG Potassium ABG Chloride ABG Glucose Oxyhemoglobin Carboxyhemoglobin Sodium Potassium Chloride Carbon Dioxide BUN Creatinine Glucose POC Glucose 231 H 257 H Lactic Acid Calcium Phosphorus Magnesium Ferritin Total Bilirubin Direct Bilirubin AST ALT Alkaline Phosphatase Lactate Dehydrogenase C-Reactive Protein Total Protein Albumin Triglycerides Lipase Arterial Blood Glucose Arterial Blood Ionized Calcium Urine WBC (Auto) Coronavirus (PCR) SARS-CoV-2 IgG Ab Crossmatch 06/16/20 06/16/20 06/16/20 04:00 04:00 05:22 WBC 13.8 H RBC 2.03 L Hgb 7.6 L Hct 20.7 L MCV 102 H MCH 37 H MCHC 37 H RDW 16.2 H Lymph % (Auto) 4.4 L [place] % (Auto) Lymph # (Auto) 0.6 L [place] # (Auto) Baso # (Auto) Seg Neutrophils % Seg Neuts % (Manual) Lymphocytes % (Manual) Nucleated RBC % Seg Neutrophils # 12.7 H Seg Neutrophils # Man Lymphocytes # (Manual) Monocytes # (Manual) Eosinophils # (Manual) PT INR APTT D-Dimer Heparin Anti-Xa Level ABG pH POC ABG pCO2 POC ABG pO2 ABG pO2 ABG HCO3 ABG O2 Saturation ABG Base Excess ABG Hemoglobin ABG Oxyhemoglobin ABG Sodium ABG Potassium ABG Chloride ABG Glucose Oxyhemoglobin Carboxyhemoglobin Sodium 130 L Potassium Chloride 88.9 L Carbon Dioxide 36 H BUN Creatinine 0.3 L Glucose 276 H POC Glucose 250 H Lactic Acid Calcium Phosphorus Magnesium Ferritin Total Bilirubin Direct Bilirubin AST ALT Alkaline Phosphatase Lactate Dehydrogenase C-Reactive Protein Total Protein Albumin Triglycerides Lipase Arterial Blood Glucose Arterial Blood Ionized Calcium Urine WBC (Auto) Coronavirus (PCR) SARS-CoV-2 IgG Ab Crossmatch 06/16/20 06/16/20 06/17/20 12:44 18:18 00:39 WBC RBC Hgb Hct MCV MCH MCHC RDW Lymph % (Auto) [place] % (Auto) Lymph # (Auto) [place] # (Auto) Baso # (Auto) Seg Neutrophils % Seg Neuts % (Manual) Lymphocytes % (Manual) Nucleated RBC % Seg Neutrophils # Seg Neutrophils # Man Lymphocytes # (Manual) Monocytes # (Manual) Eosinophils # (Manual) PT INR APTT D-Dimer Heparin Anti-Xa Level ABG pH POC ABG pCO2 POC ABG pO2 ABG pO2 ABG HCO3 ABG O2 Saturation ABG Base Excess ABG Hemoglobin ABG Oxyhemoglobin ABG Sodium ABG Potassium ABG Chloride ABG Glucose Oxyhemoglobin Carboxyhemoglobin Sodium Potassium Chloride Carbon Dioxide BUN Creatinine Glucose POC Glucose 279 H 239 H 247 H Lactic Acid Calcium Phosphorus Magnesium Ferritin Total Bilirubin Direct Bilirubin AST ALT Alkaline Phosphatase Lactate Dehydrogenase C-Reactive Protein Total Protein Albumin Triglycerides Lipase Arterial Blood Glucose Arterial Blood Ionized Calcium Urine WBC (Auto) Coronavirus (PCR) SARS-CoV-2 IgG Ab Crossmatch 06/17/20 06/17/20 06/17/20 03:40 04:08 10:54 WBC RBC Hgb Hct MCV MCH MCHC RDW Lymph % (Auto) [place] % (Auto) Lymph # (Auto) [place] # (Auto) Baso # (Auto) Seg Neutrophils % Seg Neuts % (Manual) Lymphocytes % (Manual) Nucleated RBC % Seg Neutrophils # Seg Neutrophils # Man Lymphocytes # (Manual) Monocytes # (Manual) Eosinophils # (Manual) PT INR APTT D-Dimer Heparin Anti-Xa Level ABG pH POC ABG pCO2 65.7 H POC ABG pO2 ABG pO2 ABG HCO3 ABG O2 Saturation ABG Base Excess ABG Hemoglobin 11.9 L ABG Oxyhemoglobin ABG Sodium ABG Potassium ABG Chloride 93.0 L ABG Glucose 244 H Oxyhemoglobin Carboxyhemoglobin Sodium Potassium Chloride Carbon Dioxide BUN Creatinine Glucose POC Glucose 221 H 248 H Lactic Acid Calcium Phosphorus Magnesium Ferritin Total Bilirubin Direct Bilirubin AST ALT Alkaline Phosphatase Lactate Dehydrogenase C-Reactive Protein Total Protein Albumin Triglycerides Lipase Arterial Blood Glucose 244 H Arterial Blood Ionized Calcium Urine WBC (Auto) Coronavirus (PCR) SARS-CoV-2 IgG Ab Crossmatch 06/17/20 06/17/20 06/17/20 17:47 23:11 23:29 WBC RBC Hgb Hct MCV MCH MCHC RDW Lymph % (Auto) [place] % (Auto) Lymph # (Auto) [place] # (Auto) Baso # (Auto) Seg Neutrophils % Seg Neuts % (Manual) Lymphocytes % (Manual) Nucleated RBC % Seg Neutrophils # Seg Neutrophils # Man Lymphocytes # (Manual) Monocytes # (Manual) Eosinophils # (Manual) PT INR APTT D-Dimer Heparin Anti-Xa Level ABG pH POC ABG pCO2 85.2 H POC ABG pO2 48.4 L ABG pO2 ABG HCO3 ABG O2 Saturation ABG Base Excess ABG Hemoglobin 8.0 L ABG Oxyhemoglobin ABG Sodium ABG Potassium ABG Chloride 95.0 L ABG Glucose 292 H Oxyhemoglobin Carboxyhemoglobin Sodium Potassium Chloride Carbon Dioxide BUN Creatinine Glucose POC Glucose 245 H 252 H Lactic Acid Calcium Phosphorus Magnesium Ferritin Total Bilirubin Direct Bilirubin AST ALT Alkaline Phosphatase Lactate Dehydrogenase C-Reactive Protein Total Protein Albumin Triglycerides Lipase Arterial Blood Glucose 292 H Arterial Blood Ionized Calcium Urine WBC (Auto) Coronavirus (PCR) SARS-CoV-2 IgG Ab Crossmatch 06/18/20 06/18/20 06/18/20 03:14 05:34 11:47 WBC RBC Hgb Hct MCV MCH MCHC RDW Lymph % (Auto) [place] % (Auto) Lymph # (Auto) [place] # (Auto) Baso # (Auto) Seg Neutrophils % Seg Neuts % (Manual) Lymphocytes % (Manual) Nucleated RBC % Seg Neutrophils # Seg Neutrophils # Man Lymphocytes # (Manual) Monocytes # (Manual) Eosinophils # (Manual) PT INR APTT D-Dimer Heparin Anti-Xa Level ABG pH POC ABG pCO2 65.4 H POC ABG pO2 160.7 H ABG pO2 ABG HCO3 ABG O2 Saturation ABG Base Excess ABG Hemoglobin 7.8 L ABG Oxyhemoglobin ABG Sodium ABG Potassium ABG Chloride 95.0 L ABG Glucose 251 H Oxyhemoglobin Carboxyhemoglobin Sodium Potassium Chloride Carbon Dioxide BUN Creatinine Glucose POC Glucose 243 H 263 H Lactic Acid Calcium Phosphorus Magnesium Ferritin Total Bilirubin Direct Bilirubin AST ALT Alkaline Phosphatase Lactate Dehydrogenase C-Reactive Protein Total Protein Albumin Triglycerides Lipase Arterial Blood Glucose 251 H Arterial Blood Ionized Calcium Urine WBC (Auto) Coronavirus (PCR) SARS-CoV-2 IgG Ab Crossmatch 06/18/20 06/18/20 06/19/20 17:31 23:33 04:32 WBC RBC Hgb Hct MCV MCH MCHC RDW Lymph % (Auto) [place] % (Auto) Lymph # (Auto) [place] # (Auto) Baso # (Auto) Seg Neutrophils % Seg Neuts % (Manual) Lymphocytes % (Manual) Nucleated RBC % Seg Neutrophils # Seg Neutrophils # Man Lymphocytes # (Manual) Monocytes # (Manual) Eosinophils # (Manual) PT INR APTT D-Dimer Heparin Anti-Xa Level ABG pH POC ABG pCO2 83.1 H POC ABG pO2 65.8 L ABG pO2 ABG HCO3 ABG O2 Saturation ABG Base Excess ABG Hemoglobin 8.9 L ABG Oxyhemoglobin ABG Sodium ABG Potassium ABG Chloride 96.0 L ABG Glucose 297 H Oxyhemoglobin Carboxyhemoglobin Sodium Potassium Chloride Carbon Dioxide BUN Creatinine Glucose POC Glucose 286 H 238 H Lactic Acid Calcium Phosphorus Magnesium Ferritin Total Bilirubin Direct Bilirubin AST ALT Alkaline Phosphatase Lactate Dehydrogenase C-Reactive Protein Total Protein Albumin Triglycerides Lipase Arterial Blood Glucose 297 H Arterial Blood Ionized Calcium Urine WBC (Auto) Coronavirus (PCR) SARS-CoV-2 IgG Ab Crossmatch 06/19/20 06/19/20 06/19/20 05:55 11:20 17:12 WBC RBC Hgb Hct MCV MCH MCHC RDW Lymph % (Auto) [place] % (Auto) Lymph # (Auto) [place] # (Auto) Baso # (Auto) Seg Neutrophils % Seg Neuts % (Manual) Lymphocytes % (Manual) Nucleated RBC % Seg Neutrophils # Seg Neutrophils # Man Lymphocytes # (Manual) Monocytes # (Manual) Eosinophils # (Manual) PT INR APTT D-Dimer Heparin Anti-Xa Level ABG pH POC ABG pCO2 POC ABG pO2 ABG pO2 ABG HCO3 ABG O2 Saturation ABG Base Excess ABG Hemoglobin ABG Oxyhemoglobin ABG Sodium ABG Potassium ABG Chloride ABG Glucose Oxyhemoglobin Carboxyhemoglobin Sodium Potassium Chloride Carbon Dioxide BUN Creatinine Glucose POC Glucose 274 H 282 H 298 H Lactic Acid Calcium Phosphorus Magnesium Ferritin Total Bilirubin Direct Bilirubin AST ALT Alkaline Phosphatase Lactate Dehydrogenase C-Reactive Protein Total Protein Albumin Triglycerides Lipase Arterial Blood Glucose Arterial Blood Ionized Calcium Urine WBC (Auto) Coronavirus (PCR) SARS-CoV-2 IgG Ab Crossmatch 06/19/20 06/20/20 06/20/20 23:08 03:33 06:01 WBC RBC Hgb Hct MCV MCH MCHC RDW Lymph % (Auto) [place] % (Auto) Lymph # (Auto) [place] # (Auto) Baso # (Auto) Seg Neutrophils % Seg Neuts % (Manual) Lymphocytes % (Manual) Nucleated RBC % Seg Neutrophils # Seg Neutrophils # Man Lymphocytes # (Manual) Monocytes # (Manual) Eosinophils # (Manual) PT INR APTT D-Dimer Heparin Anti-Xa Level ABG pH POC ABG pCO2 POC ABG pO2 ABG pO2 69.9 L ABG HCO3 50.8 H ABG O2 Saturation ABG Base Excess 24.2 H ABG Hemoglobin 5.8 L ABG Oxyhemoglobin ABG Sodium ABG Potassium ABG Chloride ABG Glucose Oxyhemoglobin Carboxyhemoglobin Sodium Potassium Chloride Carbon Dioxide BUN Creatinine Glucose POC Glucose 293 H 182 H Lactic Acid Calcium Phosphorus Magnesium Ferritin Total Bilirubin Direct Bilirubin AST ALT Alkaline Phosphatase Lactate Dehydrogenase C-Reactive Protein Total Protein Albumin Triglycerides Lipase Arterial Blood Glucose Arterial Blood Ionized Calcium Urine WBC (Auto) Coronavirus (PCR) SARS-CoV-2 IgG Ab Crossmatch 06/20/20 06/20/20 06/20/20 11:47 17:46 23:37 WBC RBC Hgb Hct MCV MCH MCHC RDW Lymph % (Auto) [place] % (Auto) Lymph # (Auto) [place] # (Auto) Baso # (Auto) Seg Neutrophils % Seg Neuts % (Manual) Lymphocytes % (Manual) Nucleated RBC % Seg Neutrophils # Seg Neutrophils # Man Lymphocytes # (Manual) Monocytes # (Manual) Eosinophils # (Manual) PT INR APTT D-Dimer Heparin Anti-Xa Level ABG pH POC ABG pCO2 POC ABG pO2 ABG pO2 ABG HCO3 ABG O2 Saturation ABG Base Excess ABG Hemoglobin ABG Oxyhemoglobin ABG Sodium ABG Potassium ABG Chloride ABG Glucose Oxyhemoglobin Carboxyhemoglobin Sodium Potassium Chloride Carbon Dioxide BUN Creatinine Glucose POC Glucose 170 H 215 H 256 H Lactic Acid Calcium Phosphorus Magnesium Ferritin Total Bilirubin Direct Bilirubin AST ALT Alkaline Phosphatase Lactate Dehydrogenase C-Reactive Protein Total Protein Albumin Triglycerides Lipase Arterial Blood Glucose Arterial Blood Ionized Calcium Urine WBC (Auto) Coronavirus (PCR) SARS-CoV-2 IgG Ab Crossmatch 06/21/20 06/21/20 06/21/20 04:00 05:14 05:51 WBC RBC Hgb Hct MCV MCH MCHC RDW Lymph % (Auto) [place] % (Auto) Lymph # (Auto) [place] # (Auto) Baso # (Auto) Seg Neutrophils % Seg Neuts % (Manual) Lymphocytes % (Manual) Nucleated RBC % Seg Neutrophils # Seg Neutrophils # Man Lymphocytes # (Manual) Monocytes # (Manual) Eosinophils # (Manual) PT INR APTT D-Dimer Heparin Anti-Xa Level ABG pH 7.474 H POC ABG pCO2 POC ABG pO2 ABG pO2 ABG HCO3 52.1 H ABG O2 Saturation ABG Base Excess 23.3 H ABG Hemoglobin 5.3 L ABG Oxyhemoglobin ABG Sodium ABG Potassium ABG Chloride ABG Glucose Oxyhemoglobin 93.8 L Carboxyhemoglobin Sodium Potassium Chloride Carbon Dioxide BUN Creatinine Glucose POC Glucose 122 H 129 H Lactic Acid Calcium Phosphorus Magnesium Ferritin Total Bilirubin Direct Bilirubin AST ALT Alkaline Phosphatase Lactate Dehydrogenase C-Reactive Protein Total Protein Albumin Triglycerides Lipase Arterial Blood Glucose Arterial Blood Ionized Calcium Urine WBC (Auto) Coronavirus (PCR) SARS-CoV-2 IgG Ab Crossmatch 06/21/20 06/21/20 06/21/20 11:00 11:00 11:42 WBC 14.2 H RBC 1.85 L Hgb 6.2 L Hct 19.5 L* MCV 105 H MCH 34 H MCHC RDW 18.0 H Lymph % (Auto) [place] % (Auto) Lymph # (Auto) [place] # (Auto) Baso # (Auto) Seg Neutrophils % Seg Neuts % (Manual) Lymphocytes % (Manual) Nucleated RBC % Seg Neutrophils # Seg Neutrophils # Man Lymphocytes # (Manual) Monocytes # (Manual) Eosinophils # (Manual) PT INR APTT D-Dimer Heparin Anti-Xa Level ABG pH POC ABG pCO2 POC ABG pO2 ABG pO2 ABG HCO3 ABG O2 Saturation ABG Base Excess ABG Hemoglobin ABG Oxyhemoglobin ABG Sodium ABG Potassium ABG Chloride ABG Glucose Oxyhemoglobin Carboxyhemoglobin Sodium 147 H Potassium Chloride Carbon Dioxide 51 H* BUN 31 H Creatinine 0.5 L Glucose 224 H POC Glucose 217 H Lactic Acid Calcium Phosphorus Magnesium Ferritin Total Bilirubin Direct Bilirubin AST ALT Alkaline Phosphatase Lactate Dehydrogenase C-Reactive Protein Total Protein Albumin Triglycerides Lipase Arterial Blood Glucose Arterial Blood Ionized Calcium Urine WBC (Auto) Coronavirus (PCR) SARS-CoV-2 IgG Ab Crossmatch 06/21/20 06/21/20 06/21/20 14:18 14:30 18:36 WBC RBC Hgb Hct MCV MCH MCHC RDW Lymph % (Auto) [place] % (Auto) Lymph # (Auto) [place] # (Auto) Baso # (Auto) Seg Neutrophils % Seg Neuts % (Manual) Lymphocytes % (Manual) Nucleated RBC % Seg Neutrophils # Seg Neutrophils # Man Lymphocytes # (Manual) Monocytes # (Manual) Eosinophils # (Manual) PT 15.1 H INR 1.19 H APTT D-Dimer Heparin Anti-Xa Level ABG pH POC ABG pCO2 POC ABG pO2 ABG pO2 ABG HCO3 ABG O2 Saturation ABG Base Excess ABG Hemoglobin ABG Oxyhemoglobin ABG Sodium ABG Potassium ABG Chloride ABG Glucose Oxyhemoglobin Carboxyhemoglobin Sodium Potassium Chloride Carbon Dioxide BUN Creatinine Glucose POC Glucose 185 H Lactic Acid Calcium Phosphorus Magnesium Ferritin Total Bilirubin Direct Bilirubin AST ALT Alkaline Phosphatase Lactate Dehydrogenase C-Reactive Protein Total Protein Albumin Triglycerides Lipase Arterial Blood Glucose Arterial Blood Ionized Calcium Urine WBC (Auto) Coronavirus (PCR) SARS-CoV-2 IgG Ab Crossmatch See Detail 06/21/20 06/22/20 06/22/20 21:14 03:50 04:00 WBC RBC Hgb Hct MCV MCH MCHC RDW Lymph % (Auto) [place] % (Auto) Lymph # (Auto) [place] # (Auto) Baso # (Auto) Seg Neutrophils % Seg Neuts % (Manual) Lymphocytes % (Manual) Nucleated RBC % Seg Neutrophils # Seg Neutrophils # Man Lymphocytes # (Manual) Monocytes # (Manual) Eosinophils # (Manual) PT INR APTT D-Dimer Heparin Anti-Xa Level ABG pH 7.451 H POC ABG pCO2 POC ABG pO2 ABG pO2 ABG HCO3 47.5 H ABG O2 Saturation ABG Base Excess 22.0 H ABG Hemoglobin < 5.1 L ABG Oxyhemoglobin ABG Sodium ABG Potassium ABG Chloride ABG Glucose Oxyhemoglobin 94.1 L Carboxyhemoglobin Sodium 149 H Potassium 3.5 L Chloride Carbon Dioxide 42 H* D BUN 34 H Creatinine 0.4 L Glucose 219 H POC Glucose 250 H Lactic Acid Calcium Phosphorus Magnesium Ferritin Total Bilirubin Direct Bilirubin AST ALT Alkaline Phosphatase Lactate Dehydrogenase C-Reactive Protein Total Protein Albumin Triglycerides Lipase Arterial Blood Glucose Arterial Blood Ionized Calcium Urine WBC (Auto) Coronavirus (PCR) SARS-CoV-2 IgG Ab Crossmatch 06/22/20 06/22/20 06/22/20 12:16 14:29 17:56 WBC RBC Hgb Hct MCV MCH MCHC RDW Lymph % (Auto) [place] % (Auto) Lymph # (Auto) [place] # (Auto) Baso # (Auto) Seg Neutrophils % Seg Neuts % (Manual) Lymphocytes % (Manual) Nucleated RBC % Seg Neutrophils # Seg Neutrophils # Man Lymphocytes # (Manual) Monocytes # (Manual) Eosinophils # (Manual) PT 11.8 L INR APTT 23.5 L D-Dimer Heparin Anti-Xa Level ABG pH POC ABG pCO2 POC ABG pO2 ABG pO2 ABG HCO3 ABG O2 Saturation ABG Base Excess ABG Hemoglobin ABG Oxyhemoglobin ABG Sodium ABG Potassium ABG Chloride ABG Glucose Oxyhemoglobin Carboxyhemoglobin Sodium Potassium Chloride Carbon Dioxide BUN Creatinine Glucose POC Glucose 215 H 215 H Lactic Acid Calcium Phosphorus Magnesium Ferritin Total Bilirubin Direct Bilirubin AST ALT Alkaline Phosphatase Lactate Dehydrogenase C-Reactive Protein Total Protein Albumin Triglycerides Lipase Arterial Blood Glucose Arterial Blood Ionized Calcium Urine WBC (Auto) Coronavirus (PCR) SARS-CoV-2 IgG Ab Crossmatch 06/22/20 06/22/20 06/22/20 23:36 23:45 Unknown WBC 14.1 H RBC 2.70 L Hgb 8.9 L 8.9 L Hct 26.9 L 27.2 L D MCV 101 H MCH 33 H MCHC RDW 17.7 H Lymph % (Auto) [place] % (Auto) Lymph # (Auto) [place] # (Auto) Baso # (Auto) Seg Neutrophils % Seg Neuts % (Manual) 92.0 H Lymphocytes % (Manual) 5.0 L Nucleated RBC % Seg Neutrophils # Seg Neutrophils # Man 13.0 H Lymphocytes # (Manual) 0.7 L Monocytes # (Manual) Eosinophils # (Manual) PT INR APTT D-Dimer Heparin Anti-Xa Level ABG pH POC ABG pCO2 POC ABG pO2 ABG pO2 ABG HCO3 ABG O2 Saturation ABG Base Excess ABG Hemoglobin ABG Oxyhemoglobin ABG Sodium ABG Potassium ABG Chloride ABG Glucose Oxyhemoglobin Carboxyhemoglobin Sodium Potassium Chloride Carbon Dioxide BUN Creatinine Glucose POC Glucose 208 H Lactic Acid Calcium Phosphorus Magnesium Ferritin Total Bilirubin Direct Bilirubin AST ALT Alkaline Phosphatase Lactate Dehydrogenase C-Reactive Protein Total Protein Albumin Triglycerides Lipase Arterial Blood Glucose Arterial Blood Ionized Calcium Urine WBC (Auto) Coronavirus (PCR) SARS-CoV-2 IgG Ab Crossmatch 06/23/20 06/23/20 06/23/20 05:17 05:19 06:50 WBC RBC Hgb Hct MCV MCH MCHC RDW Lymph % (Auto) [place] % (Auto) Lymph # (Auto) [place] # (Auto) Baso # (Auto) Seg Neutrophils % Seg Neuts % (Manual) Lymphocytes % (Manual) Nucleated RBC % Seg Neutrophils # Seg Neutrophils # Man Lymphocytes # (Manual) Monocytes # (Manual) Eosinophils # (Manual) PT INR APTT D-Dimer Heparin Anti-Xa Level ABG pH POC ABG pCO2 69.7 H POC ABG pO2 63.3 L ABG pO2 ABG HCO3 ABG O2 Saturation ABG Base Excess ABG Hemoglobin 10.1 L ABG Oxyhemoglobin ABG Sodium ABG Potassium 3.3 L ABG Chloride ABG Glucose 226 H Oxyhemoglobin Carboxyhemoglobin Sodium Potassium 3.0 L Chloride Carbon Dioxide 41 H* BUN 26 H Creatinine 0.4 L Glucose 209 H POC Glucose 200 H Lactic Acid Calcium Phosphorus Magnesium Ferritin Total Bilirubin Direct Bilirubin AST ALT Alkaline Phosphatase Lactate Dehydrogenase C-Reactive Protein Total Protein Albumin 2.9 L Triglycerides Lipase Arterial Blood Glucose 226 H Arterial Blood Ionized Calcium Urine WBC (Auto) Coronavirus (PCR) SARS-CoV-2 IgG Ab Crossmatch 06/23/20 06/23/20 06/23/20 09:41 12:04 18:16 WBC RBC Hgb 9.1 L Hct 28.0 L MCV MCH MCHC RDW Lymph % (Auto) [place] % (Auto) Lymph # (Auto) [place] # (Auto) Baso # (Auto) Seg Neutrophils % Seg Neuts % (Manual) Lymphocytes % (Manual) Nucleated RBC % Seg Neutrophils # Seg Neutrophils # Man Lymphocytes # (Manual) Monocytes # (Manual) Eosinophils # (Manual) PT INR APTT D-Dimer Heparin Anti-Xa Level ABG pH POC ABG pCO2 POC ABG pO2 ABG pO2 ABG HCO3 ABG O2 Saturation ABG Base Excess ABG Hemoglobin ABG Oxyhemoglobin ABG Sodium ABG Potassium ABG Chloride ABG Glucose Oxyhemoglobin Carboxyhemoglobin Sodium Potassium Chloride Carbon Dioxide BUN Creatinine Glucose POC Glucose 146 H 162 H Lactic Acid Calcium Phosphorus Magnesium Ferritin Total Bilirubin Direct Bilirubin AST ALT Alkaline Phosphatase Lactate Dehydrogenase C-Reactive Protein Total Protein Albumin Triglycerides Lipase Arterial Blood Glucose Arterial Blood Ionized Calcium Urine WBC (Auto) Coronavirus (PCR) SARS-CoV-2 IgG Ab Crossmatch 06/23/20 06/23/20 06/24/20 23:24 23:41 02:39 WBC RBC Hgb 8.2 L 8.8 L Hct 24.9 L 26.8 L MCV MCH MCHC RDW Lymph % (Auto) [place] % (Auto) Lymph # (Auto) [place] # (Auto) Baso # (Auto) Seg Neutrophils % Seg Neuts % (Manual) Lymphocytes % (Manual) Nucleated RBC % Seg Neutrophils # Seg Neutrophils # Man Lymphocytes # (Manual) Monocytes # (Manual) Eosinophils # (Manual) PT INR APTT D-Dimer Heparin Anti-Xa Level ABG pH POC ABG pCO2 POC ABG pO2 ABG pO2 ABG HCO3 ABG O2 Saturation ABG Base Excess ABG Hemoglobin ABG Oxyhemoglobin ABG Sodium ABG Potassium ABG Chloride ABG Glucose Oxyhemoglobin Carboxyhemoglobin Sodium Potassium Chloride Carbon Dioxide BUN Creatinine Glucose POC Glucose 248 H Lactic Acid Calcium Phosphorus Magnesium Ferritin Total Bilirubin Direct Bilirubin AST ALT Alkaline Phosphatase Lactate Dehydrogenase C-Reactive Protein Total Protein Albumin Triglycerides Lipase Arterial Blood Glucose Arterial Blood Ionized Calcium Urine WBC (Auto) Coronavirus (PCR) SARS-CoV-2 IgG Ab Crossmatch 06/24/20 06/24/20 06/24/20 02:39 02:45 05:31 WBC RBC Hgb Hct MCV MCH MCHC RDW Lymph % (Auto) [place] % (Auto) Lymph # (Auto) [place] # (Auto) Baso # (Auto) Seg Neutrophils % Seg Neuts % (Manual) Lymphocytes % (Manual) Nucleated RBC % Seg Neutrophils # Seg Neutrophils # Man Lymphocytes # (Manual) Monocytes # (Manual) Eosinophils # (Manual) PT INR APTT D-Dimer Heparin Anti-Xa Level ABG pH POC ABG pCO2 66.9 H POC ABG pO2 109.7 H ABG pO2 ABG HCO3 ABG O2 Saturation ABG Base Excess ABG Hemoglobin 9.7 L ABG Oxyhemoglobin ABG Sodium 135.0 L ABG Potassium ABG Chloride 97.0 L ABG Glucose 277 H Oxyhemoglobin Carboxyhemoglobin Sodium 136 L Potassium Chloride 95.0 L Carbon Dioxide 34 H D BUN 24 H Creatinine 0.3 L Glucose 260 H POC Glucose 164 H Lactic Acid Calcium Phosphorus Magnesium Ferritin Total Bilirubin Direct Bilirubin AST ALT Alkaline Phosphatase Lactate Dehydrogenase C-Reactive Protein Total Protein 5.2 L Albumin 2.6 L Triglycerides Lipase Arterial Blood Glucose 277 H Arterial Blood Ionized Calcium Urine WBC (Auto) Coronavirus (PCR) SARS-CoV-2 IgG Ab Crossmatch 06/24/20 06/24/20 06/24/20 10:00 11:49 17:39 WBC RBC Hgb 8.9 L Hct 26.5 L MCV MCH MCHC RDW Lymph % (Auto) [place] % (Auto) Lymph # (Auto) [place] # (Auto) Baso # (Auto) Seg Neutrophils % Seg Neuts % (Manual) Lymphocytes % (Manual) Nucleated RBC % Seg Neutrophils # Seg Neutrophils # Man Lymphocytes # (Manual) Monocytes # (Manual) Eosinophils # (Manual) PT INR APTT D-Dimer Heparin Anti-Xa Level ABG pH POC ABG pCO2 POC ABG pO2 ABG pO2 ABG HCO3 ABG O2 Saturation ABG Base Excess ABG Hemoglobin ABG Oxyhemoglobin ABG Sodium ABG Potassium ABG Chloride ABG Glucose Oxyhemoglobin Carboxyhemoglobin Sodium Potassium Chloride Carbon Dioxide BUN Creatinine Glucose POC Glucose 198 H 223 H Lactic Acid Calcium Phosphorus Magnesium Ferritin Total Bilirubin Direct Bilirubin AST ALT Alkaline Phosphatase Lactate Dehydrogenase C-Reactive Protein Total Protein Albumin Triglycerides Lipase Arterial Blood Glucose Arterial Blood Ionized Calcium Urine WBC (Auto) Coronavirus (PCR) SARS-CoV-2 IgG Ab Crossmatch 06/24/20 06/25/20 06/25/20 23:56 02:16 04:08 WBC RBC Hgb Hct MCV MCH MCHC RDW Lymph % (Auto) [place] % (Auto) Lymph # (Auto) [place] # (Auto) Baso # (Auto) Seg Neutrophils % Seg Neuts % (Manual) Lymphocytes % (Manual) Nucleated RBC % Seg Neutrophils # Seg Neutrophils # Man Lymphocytes # (Manual) Monocytes # (Manual) Eosinophils # (Manual) PT INR APTT D-Dimer Heparin Anti-Xa Level ABG pH 7.454 H POC ABG pCO2 56.9 H POC ABG pO2 61.0 L ABG pO2 ABG HCO3 ABG O2 Saturation ABG Base Excess ABG Hemoglobin ABG Oxyhemoglobin ABG Sodium 134.3 L ABG Potassium ABG Chloride 92.0 L ABG Glucose 246 H Oxyhemoglobin Carboxyhemoglobin Sodium 134 L Potassium Chloride 89.7 L Carbon Dioxide 36 H BUN Creatinine 0.3 L Glucose 254 H POC Glucose 225 H Lactic Acid Calcium Phosphorus Magnesium Ferritin Total Bilirubin Direct Bilirubin AST ALT Alkaline Phosphatase Lactate Dehydrogenase C-Reactive Protein Total Protein Albumin 2.9 L Triglycerides Lipase Arterial Blood Glucose 246 H Arterial Blood Ionized Calcium Urine WBC (Auto) Coronavirus (PCR) SARS-CoV-2 IgG Ab Crossmatch 06/25/20 06/25/20 06/25/20 05:44 11:35 17:33 WBC RBC Hgb Hct MCV MCH MCHC RDW Lymph % (Auto) [place] % (Auto) Lymph # (Auto) [place] # (Auto) Baso # (Auto) Seg Neutrophils % Seg Neuts % (Manual) Lymphocytes % (Manual) Nucleated RBC % Seg Neutrophils # Seg Neutrophils # Man Lymphocytes # (Manual) Monocytes # (Manual) Eosinophils # (Manual) PT INR APTT D-Dimer Heparin Anti-Xa Level ABG pH POC ABG pCO2 POC ABG pO2 ABG pO2 ABG HCO3 ABG O2 Saturation ABG Base Excess ABG Hemoglobin ABG Oxyhemoglobin ABG Sodium ABG Potassium ABG Chloride ABG Glucose Oxyhemoglobin Carboxyhemoglobin Sodium Potassium Chloride Carbon Dioxide BUN Creatinine Glucose POC Glucose 170 H 175 H 229 H Lactic Acid Calcium Phosphorus Magnesium Ferritin Total Bilirubin Direct Bilirubin AST ALT Alkaline Phosphatase Lactate Dehydrogenase C-Reactive Protein Total Protein Albumin Triglycerides Lipase Arterial Blood Glucose Arterial Blood Ionized Calcium Urine WBC (Auto) Coronavirus (PCR) SARS-CoV-2 IgG Ab Crossmatch 06/25/20 06/26/20 06/26/20 23:55 02:17 02:17 WBC RBC Hgb 10.0 L Hct 30.4 L MCV MCH MCHC RDW Lymph % (Auto) [place] % (Auto) Lymph # (Auto) [place] # (Auto) Baso # (Auto) Seg Neutrophils % Seg Neuts % (Manual) Lymphocytes % (Manual) Nucleated RBC % Seg Neutrophils # Seg Neutrophils # Man Lymphocytes # (Manual) Monocytes # (Manual) Eosinophils # (Manual) PT INR APTT D-Dimer Heparin Anti-Xa Level ABG pH POC ABG pCO2 POC ABG pO2 ABG pO2 ABG HCO3 ABG O2 Saturation ABG Base Excess ABG Hemoglobin ABG Oxyhemoglobin ABG Sodium ABG Potassium ABG Chloride ABG Glucose Oxyhemoglobin Carboxyhemoglobin Sodium 136 L Potassium Chloride 90.1 L Carbon Dioxide 39 H BUN Creatinine 0.2 L Glucose 232 H POC Glucose 192 H Lactic Acid Calcium Phosphorus Magnesium Ferritin Total Bilirubin Direct Bilirubin AST ALT Alkaline Phosphatase Lactate Dehydrogenase C-Reactive Protein Total Protein 6.1 L Albumin 2.9 L Triglycerides Lipase Arterial Blood Glucose Arterial Blood Ionized Calcium Urine WBC (Auto) Coronavirus (PCR) SARS-CoV-2 IgG Ab Crossmatch 06/26/20 06/26/20 06/26/20 04:15 04:49 05:28 WBC RBC Hgb Hct MCV MCH MCHC RDW Lymph % (Auto) [place] % (Auto) Lymph # (Auto) [place] # (Auto) Baso # (Auto) Seg Neutrophils % Seg Neuts % (Manual) Lymphocytes % (Manual) Nucleated RBC % Seg Neutrophils # Seg Neutrophils # Man Lymphocytes # (Manual) Monocytes # (Manual) Eosinophils # (Manual) PT INR APTT D-Dimer Heparin Anti-Xa Level ABG pH 7.453 H POC ABG pCO2 59.6 H POC ABG pO2 ABG pO2 ABG HCO3 ABG O2 Saturation ABG Base Excess ABG Hemoglobin 10.0 L ABG Oxyhemoglobin ABG Sodium 134.2 L ABG Potassium 3.3 L ABG Chloride 92.0 L ABG Glucose 305 H Oxyhemoglobin Carboxyhemoglobin Sodium Potassium Chloride Carbon Dioxide BUN Creatinine Glucose POC Glucose 234 H Lactic Acid Calcium Phosphorus Magnesium Ferritin Total Bilirubin Direct Bilirubin AST ALT Alkaline Phosphatase Lactate Dehydrogenase C-Reactive Protein Total Protein Albumin Triglycerides 203 H Lipase Arterial Blood Glucose 305 H Arterial Blood Ionized Calcium Urine WBC (Auto) Coronavirus (PCR) SARS-CoV-2 IgG Ab Crossmatch 06/26/20 06/26/20 06/26/20 11:58 17:58 21:32 WBC RBC Hgb Hct MCV MCH MCHC RDW Lymph % (Auto) [place] % (Auto) Lymph # (Auto) [place] # (Auto) Baso # (Auto) Seg Neutrophils % Seg Neuts % (Manual) Lymphocytes % (Manual) Nucleated RBC % Seg Neutrophils # Seg Neutrophils # Man Lymphocytes # (Manual) Monocytes # (Manual) Eosinophils # (Manual) PT INR APTT D-Dimer Heparin Anti-Xa Level ABG pH POC ABG pCO2 POC ABG pO2 ABG pO2 ABG HCO3 ABG O2 Saturation ABG Base Excess ABG Hemoglobin ABG Oxyhemoglobin ABG Sodium ABG Potassium ABG Chloride ABG Glucose Oxyhemoglobin Carboxyhemoglobin Sodium Potassium Chloride Carbon Dioxide BUN Creatinine Glucose POC Glucose 198 H 193 H 191 H Lactic Acid Calcium Phosphorus Magnesium Ferritin Total Bilirubin Direct Bilirubin AST ALT Alkaline Phosphatase Lactate Dehydrogenase C-Reactive Protein Total Protein Albumin Triglycerides Lipase Arterial Blood Glucose Arterial Blood Ionized Calcium Urine WBC (Auto) Coronavirus (PCR) SARS-CoV-2 IgG Ab Crossmatch 06/26/20 06/27/20 06/27/20 23:40 04:35 05:32 WBC RBC Hgb Hct MCV MCH MCHC RDW Lymph % (Auto) [place] % (Auto) Lymph # (Auto) [place] # (Auto) Baso # (Auto) Seg Neutrophils % Seg Neuts % (Manual) Lymphocytes % (Manual) Nucleated RBC % Seg Neutrophils # Seg Neutrophils # Man Lymphocytes # (Manual) Monocytes # (Manual) Eosinophils # (Manual) PT INR APTT D-Dimer Heparin Anti-Xa Level ABG pH 7.464 H POC ABG pCO2 60.8 H POC ABG pO2 ABG pO2 ABG HCO3 ABG O2 Saturation ABG Base Excess ABG Hemoglobin 10.1 L ABG Oxyhemoglobin ABG Sodium ABG Potassium 2.9 L ABG Chloride 92.0 L ABG Glucose 298 H Oxyhemoglobin Carboxyhemoglobin Sodium Potassium Chloride Carbon Dioxide BUN Creatinine Glucose POC Glucose 241 H 211 H Lactic Acid Calcium Phosphorus Magnesium Ferritin Total Bilirubin Direct Bilirubin AST ALT Alkaline Phosphatase Lactate Dehydrogenase C-Reactive Protein Total Protein Albumin Triglycerides Lipase Arterial Blood Glucose 298 H Arterial Blood Ionized Calcium Urine WBC (Auto) Coronavirus (PCR) SARS-CoV-2 IgG Ab Crossmatch 06/27/20 06/27/20 06/27/20 12:37 18:08 20:52 WBC RBC Hgb Hct MCV MCH MCHC RDW Lymph % (Auto) [place] % (Auto) Lymph # (Auto) [place] # (Auto) Baso # (Auto) Seg Neutrophils % Seg Neuts % (Manual) Lymphocytes % (Manual) Nucleated RBC % Seg Neutrophils # Seg Neutrophils # Man Lymphocytes # (Manual) Monocytes # (Manual) Eosinophils # (Manual) PT INR APTT D-Dimer Heparin Anti-Xa Level ABG pH POC ABG pCO2 POC ABG pO2 ABG pO2 ABG HCO3 ABG O2 Saturation ABG Base Excess ABG Hemoglobin ABG Oxyhemoglobin ABG Sodium ABG Potassium ABG Chloride ABG Glucose Oxyhemoglobin Carboxyhemoglobin Sodium Potassium Chloride Carbon Dioxide BUN Creatinine Glucose POC Glucose 182 H 197 H 195 H Lactic Acid Calcium Phosphorus Magnesium Ferritin Total Bilirubin Direct Bilirubin AST ALT Alkaline Phosphatase Lactate Dehydrogenase C-Reactive Protein Total Protein Albumin Triglycerides Lipase Arterial Blood Glucose Arterial Blood Ionized Calcium Urine WBC (Auto) Coronavirus (PCR) SARS-CoV-2 IgG Ab Crossmatch 06/27/20 06/28/20 06/28/20 Unknown 04:17 04:50 WBC RBC Hgb Hct MCV MCH MCHC RDW Lymph % (Auto) [place] % (Auto) Lymph # (Auto) [place] # (Auto) Baso # (Auto) Seg Neutrophils % Seg Neuts % (Manual) Lymphocytes % (Manual) Nucleated RBC % Seg Neutrophils # Seg Neutrophils # Man Lymphocytes # (Manual) Monocytes # (Manual) Eosinophils # (Manual) PT INR APTT D-Dimer Heparin Anti-Xa Level ABG pH POC ABG pCO2 58.6 H POC ABG pO2 60.1 L ABG pO2 ABG HCO3 ABG O2 Saturation ABG Base Excess ABG Hemoglobin 10.0 L ABG Oxyhemoglobin ABG Sodium 125.3 L ABG Potassium ABG Chloride 93.0 L ABG Glucose 308 H Oxyhemoglobin Carboxyhemoglobin Sodium Potassium 2.9 L* Chloride 93.4 L Carbon Dioxide 42 H* BUN Creatinine 0.3 L Glucose 211 H POC Glucose 252 H Lactic Acid Calcium 8.1 L Phosphorus Magnesium Ferritin Total Bilirubin Direct Bilirubin AST ALT Alkaline Phosphatase Lactate Dehydrogenase C-Reactive Protein Total Protein 5.1 L Albumin 2.4 L Triglycerides Lipase Arterial Blood Glucose 308 H Arterial Blood Ionized Calcium Urine WBC (Auto) Coronavirus (PCR) SARS-CoV-2 IgG Ab Crossmatch 06/28/20 06/28/20 06/28/20 06:35 06:35 11:36 WBC 18.9 H RBC 2.85 L Hgb 9.5 L Hct 28.4 L MCV 100 H MCH 33 H MCHC RDW 17.3 H Lymph % (Auto) [place] % (Auto) Lymph # (Auto) [place] # (Auto) Baso # (Auto) Seg Neutrophils % 88.6 H Seg Neuts % (Manual) 95.0 H Lymphocytes % (Manual) 1.0 L Nucleated RBC % Seg Neutrophils # 15.9 H Seg Neutrophils # Man 18.0 H Lymphocytes # (Manual) 0.2 L Monocytes # (Manual) Eosinophils # (Manual) PT INR APTT D-Dimer Heparin Anti-Xa Level ABG pH POC ABG pCO2 POC ABG pO2 ABG pO2 ABG HCO3 ABG O2 Saturation ABG Base Excess ABG Hemoglobin ABG Oxyhemoglobin ABG Sodium ABG Potassium ABG Chloride ABG Glucose Oxyhemoglobin Carboxyhemoglobin Sodium Potassium Chloride 94.2 L Carbon Dioxide 38 H BUN Creatinine 0.3 L Glucose 228 H POC Glucose 243 H Lactic Acid Calcium Phosphorus Magnesium Ferritin Total Bilirubin Direct Bilirubin AST ALT Alkaline Phosphatase Lactate Dehydrogenase C-Reactive Protein Total Protein 6.1 L Albumin 2.7 L Triglycerides Lipase Arterial Blood Glucose Arterial Blood Ionized Calcium Urine WBC (Auto) Coronavirus (PCR) SARS-CoV-2 IgG Ab Crossmatch 06/28/20 06/28/20 06/29/20 16:53 21:10 00:06 WBC RBC Hgb Hct MCV MCH MCHC RDW Lymph % (Auto) [place] % (Auto) Lymph # (Auto) [place] # (Auto) Baso # (Auto) Seg Neutrophils % Seg Neuts % (Manual) Lymphocytes % (Manual) Nucleated RBC % Seg Neutrophils # Seg Neutrophils # Man Lymphocytes # (Manual) Monocytes # (Manual) Eosinophils # (Manual) PT INR APTT D-Dimer Heparin Anti-Xa Level ABG pH POC ABG pCO2 POC ABG pO2 ABG pO2 ABG HCO3 ABG O2 Saturation ABG Base Excess ABG Hemoglobin ABG Oxyhemoglobin ABG Sodium ABG Potassium ABG Chloride ABG Glucose Oxyhemoglobin Carboxyhemoglobin Sodium Potassium Chloride Carbon Dioxide BUN Creatinine Glucose POC Glucose 211 H 195 H 200 H Lactic Acid Calcium Phosphorus Magnesium Ferritin Total Bilirubin Direct Bilirubin AST ALT Alkaline Phosphatase Lactate Dehydrogenase C-Reactive Protein Total Protein Albumin Triglycerides Lipase Arterial Blood Glucose Arterial Blood Ionized Calcium Urine WBC (Auto) Coronavirus (PCR) SARS-CoV-2 IgG Ab Crossmatch 06/29/20 06/29/20 06/29/20 03:11 04:00 04:00 WBC 18.8 H RBC 2.82 L Hgb 10.1 L Hct 28.5 L MCV 101 H MCH 36 H MCHC 36 H RDW 17.5 H Lymph % (Auto) 10.7 L [place] % (Auto) Lymph # (Auto) [place] # (Auto) 1.0 H Baso # (Auto) 0.3 H Seg Neutrophils % 82.2 H Seg Neuts % (Manual) Lymphocytes % (Manual) Nucleated RBC % Seg Neutrophils # 15.5 H Seg Neutrophils # Man Lymphocytes # (Manual) Monocytes # (Manual) Eosinophils # (Manual) PT INR APTT D-Dimer Heparin Anti-Xa Level ABG pH POC ABG pCO2 57.5 H POC ABG pO2 69.1 L ABG pO2 ABG HCO3 ABG O2 Saturation ABG Base Excess ABG Hemoglobin 10.2 L ABG Oxyhemoglobin 92.3 L ABG Sodium 130.7 L ABG Potassium 3.2 L ABG Chloride 93.0 L ABG Glucose 228 H Oxyhemoglobin Carboxyhemoglobin Sodium 134 L Potassium 3.3 L Chloride 89.5 L Carbon Dioxide 40 H BUN Creatinine 0.2 L Glucose 190 H POC Glucose Lactic Acid Calcium Phosphorus Magnesium Ferritin Total Bilirubin Direct Bilirubin AST < 5 L ALT < 5 L Alkaline Phosphatase Lactate Dehydrogenase C-Reactive Protein Total Protein 5.9 L Albumin 2.2 L Triglycerides Lipase Arterial Blood Glucose 228 H Arterial Blood Ionized Calcium Urine WBC (Auto) Coronavirus (PCR) SARS-CoV-2 IgG Ab Crossmatch 06/29/20 06/29/20 06/29/20 05:00 05:23 09:36 WBC RBC Hgb Hct MCV MCH MCHC RDW Lymph % (Auto) [place] % (Auto) Lymph # (Auto) [place] # (Auto) Baso # (Auto) Seg Neutrophils % Seg Neuts % (Manual) Lymphocytes % (Manual) Nucleated RBC % Seg Neutrophils # Seg Neutrophils # Man Lymphocytes # (Manual) Monocytes # (Manual) Eosinophils # (Manual) PT INR APTT D-Dimer Heparin Anti-Xa Level ABG pH POC ABG pCO2 POC ABG pO2 ABG pO2 ABG HCO3 ABG O2 Saturation ABG Base Excess ABG Hemoglobin ABG Oxyhemoglobin ABG Sodium ABG Potassium ABG Chloride ABG Glucose Oxyhemoglobin Carboxyhemoglobin Sodium Potassium Chloride Carbon Dioxide BUN Creatinine Glucose POC Glucose 165 H Lactic Acid Calcium Phosphorus Magnesium Ferritin Total Bilirubin Direct Bilirubin AST ALT Alkaline Phosphatase Lactate Dehydrogenase C-Reactive Protein Total Protein Albumin Triglycerides 1544 H 1799 H Lipase Arterial Blood Glucose Arterial Blood Ionized Calcium Urine WBC (Auto) Coronavirus (PCR) SARS-CoV-2 IgG Ab Crossmatch 06/29/20 06/29/20 06/29/20 09:36 12:02 18:00 WBC RBC Hgb Hct MCV MCH MCHC RDW Lymph % (Auto) [place] % (Auto) Lymph # (Auto) [place] # (Auto) Baso # (Auto) Seg Neutrophils % Seg Neuts % (Manual) Lymphocytes % (Manual) Nucleated RBC % Seg Neutrophils # Seg Neutrophils # Man Lymphocytes # (Manual) Monocytes # (Manual) Eosinophils # (Manual) PT INR APTT D-Dimer Heparin Anti-Xa Level ABG pH POC ABG pCO2 POC ABG pO2 ABG pO2 ABG HCO3 ABG O2 Saturation ABG Base Excess ABG Hemoglobin ABG Oxyhemoglobin ABG Sodium ABG Potassium ABG Chloride ABG Glucose Oxyhemoglobin Carboxyhemoglobin Sodium Potassium Chloride Carbon Dioxide BUN Creatinine Glucose POC Glucose 197 H 187 H Lactic Acid Calcium Phosphorus Magnesium Ferritin Total Bilirubin Direct Bilirubin AST ALT Alkaline Phosphatase Lactate Dehydrogenase C-Reactive Protein Total Protein Albumin Triglycerides Lipase 86 H Arterial Blood Glucose Arterial Blood Ionized Calcium Urine WBC (Auto) Coronavirus (PCR) SARS-CoV-2 IgG Ab Crossmatch 06/29/20 06/30/20 06/30/20 23:33 03:46 05:50 WBC RBC Hgb Hct MCV MCH MCHC RDW Lymph % (Auto) [place] % (Auto) Lymph # (Auto) [place] # (Auto) Baso # (Auto) Seg Neutrophils % Seg Neuts % (Manual) Lymphocytes % (Manual) Nucleated RBC % Seg Neutrophils # Seg Neutrophils # Man Lymphocytes # (Manual) Monocytes # (Manual) Eosinophils # (Manual) PT INR APTT D-Dimer Heparin Anti-Xa Level ABG pH 7.466 H POC ABG pCO2 57.3 H POC ABG pO2 66.1 L ABG pO2 ABG HCO3 ABG O2 Saturation ABG Base Excess ABG Hemoglobin 10.2 L ABG Oxyhemoglobin 92.3 L ABG Sodium 134.4 L ABG Potassium 3.2 L ABG Chloride 94.0 L ABG Glucose 178 H Oxyhemoglobin Carboxyhemoglobin Sodium Potassium Chloride Carbon Dioxide BUN Creatinine Glucose POC Glucose 170 H 170 H Lactic Acid Calcium Phosphorus Magnesium Ferritin Total Bilirubin Direct Bilirubin AST ALT Alkaline Phosphatase Lactate Dehydrogenase C-Reactive Protein Total Protein Albumin Triglycerides Lipase Arterial Blood Glucose 178 H Arterial Blood Ionized Calcium Urine WBC (Auto) Coronavirus (PCR) SARS-CoV-2 IgG Ab Crossmatch 06/30/20 06/30/20 06/30/20 07:00 07:00 12:04 WBC 15.6 H RBC 2.91 L Hgb 9.8 L Hct 29.7 L MCV 102 H MCH 34 H MCHC RDW 17.8 H Lymph % (Auto) [place] % (Auto) Lymph # (Auto) [place] # (Auto) Baso # (Auto) Seg Neutrophils % Seg Neuts % (Manual) Lymphocytes % (Manual) 5.0 L Nucleated RBC % Seg Neutrophils # Seg Neutrophils # Man 14.8 H Lymphocytes # (Manual) 0.8 L Monocytes # (Manual) Eosinophils # (Manual) PT INR APTT D-Dimer Heparin Anti-Xa Level ABG pH POC ABG pCO2 POC ABG pO2 ABG pO2 ABG HCO3 ABG O2 Saturation ABG Base Excess ABG Hemoglobin ABG Oxyhemoglobin ABG Sodium ABG Potassium ABG Chloride ABG Glucose Oxyhemoglobin Carboxyhemoglobin Sodium Potassium Chloride 93.3 L Carbon Dioxide 43 H* BUN Creatinine 0.3 L Glucose 260 H POC Glucose 245 H Lactic Acid Calcium Phosphorus Magnesium Ferritin Total Bilirubin Direct Bilirubin AST ALT Alkaline Phosphatase Lactate Dehydrogenase C-Reactive Protein Total Protein Albumin 2.8 L Triglycerides 452 H Lipase Arterial Blood Glucose Arterial Blood Ionized Calcium Urine WBC (Auto) Coronavirus (PCR) SARS-CoV-2 IgG Ab Crossmatch 06/30/20 07/01/20 07/01/20 17:32 00:02 05:02 WBC RBC Hgb Hct MCV MCH MCHC RDW Lymph % (Auto) [place] % (Auto) Lymph # (Auto) [place] # (Auto) Baso # (Auto) Seg Neutrophils % Seg Neuts % (Manual) Lymphocytes % (Manual) Nucleated RBC % Seg Neutrophils # Seg Neutrophils # Man Lymphocytes # (Manual) Monocytes # (Manual) Eosinophils # (Manual) PT INR APTT D-Dimer Heparin Anti-Xa Level ABG pH POC ABG pCO2 58.1 H POC ABG pO2 ABG pO2 ABG HCO3 ABG O2 Saturation ABG Base Excess ABG Hemoglobin 11.2 L ABG Oxyhemoglobin ABG Sodium 132.7 L ABG Potassium ABG Chloride 92.0 L ABG Glucose 238 H Oxyhemoglobin Carboxyhemoglobin Sodium Potassium Chloride Carbon Dioxide BUN Creatinine Glucose POC Glucose 209 H 208 H Lactic Acid Calcium Phosphorus Magnesium Ferritin Total Bilirubin Direct Bilirubin AST ALT Alkaline Phosphatase Lactate Dehydrogenase C-Reactive Protein Total Protein Albumin Triglycerides Lipase Arterial Blood Glucose 238 H Arterial Blood Ionized Calcium Urine WBC (Auto) Coronavirus (PCR) SARS-CoV-2 IgG Ab Crossmatch 07/01/20 07/01/20 07/01/20 06:16 06:41 06:41 WBC 18.1 H RBC 2.33 L Hgb 7.1 L Hct 21.3 L D MCV MCH MCHC RDW Lymph % (Auto) [place] % (Auto) Lymph # (Auto) [place] # (Auto) Baso # (Auto) Seg Neutrophils % Seg Neuts % (Manual) 82.0 H Lymphocytes % (Manual) 7.0 L Nucleated RBC % 1.0 H Seg Neutrophils # Seg Neutrophils # Man 14.8 H Lymphocytes # (Manual) Monocytes # (Manual) 1.1 H Eosinophils # (Manual) 0.5 H PT INR APTT D-Dimer Heparin Anti-Xa Level < 0.10 L ABG pH POC ABG pCO2 POC ABG pO2 ABG pO2 ABG HCO3 ABG O2 Saturation ABG Base Excess ABG Hemoglobin ABG Oxyhemoglobin ABG Sodium ABG Potassium ABG Chloride ABG Glucose Oxyhemoglobin Carboxyhemoglobin Sodium Potassium Chloride Carbon Dioxide BUN Creatinine Glucose POC Glucose 180 H Lactic Acid Calcium Phosphorus Magnesium Ferritin Total Bilirubin Direct Bilirubin AST ALT Alkaline Phosphatase Lactate Dehydrogenase C-Reactive Protein Total Protein Albumin Triglycerides Lipase Arterial Blood Glucose Arterial Blood Ionized Calcium Urine WBC (Auto) Coronavirus (PCR) SARS-CoV-2 IgG Ab Crossmatch 07/01/20 07/01/20 07/01/20 08:11 12:04 16:16 WBC RBC Hgb Hct MCV MCH MCHC RDW Lymph % (Auto) [place] % (Auto) Lymph # (Auto) [place] # (Auto) Baso # (Auto) Seg Neutrophils % Seg Neuts % (Manual) Lymphocytes % (Manual) Nucleated RBC % Seg Neutrophils # Seg Neutrophils # Man Lymphocytes # (Manual) Monocytes # (Manual) Eosinophils # (Manual) PT INR APTT D-Dimer Heparin Anti-Xa Level 1.02 H ABG pH POC ABG pCO2 POC ABG pO2 ABG pO2 ABG HCO3 ABG O2 Saturation ABG Base Excess ABG Hemoglobin ABG Oxyhemoglobin ABG Sodium ABG Potassium ABG Chloride ABG Glucose Oxyhemoglobin Carboxyhemoglobin Sodium 135 L Potassium 3.0 L Chloride 93.1 L Carbon Dioxide 40 H BUN Creatinine 0.3 L Glucose 140 H POC Glucose 223 H Lactic Acid Calcium Phosphorus Magnesium Ferritin Total Bilirubin Direct Bilirubin AST ALT Alkaline Phosphatase Lactate Dehydrogenase C-Reactive Protein Total Protein Albumin Triglycerides Lipase Arterial Blood Glucose Arterial Blood Ionized Calcium Urine WBC (Auto) Coronavirus (PCR) SARS-CoV-2 IgG Ab Crossmatch 07/01/20 07/01/20 07/02/20 17:09 23:19 00:56 WBC RBC Hgb Hct MCV MCH MCHC RDW Lymph % (Auto) [place] % (Auto) Lymph # (Auto) [place] # (Auto) Baso # (Auto) Seg Neutrophils % Seg Neuts % (Manual) Lymphocytes % (Manual) Nucleated RBC % Seg Neutrophils # Seg Neutrophils # Man Lymphocytes # (Manual) Monocytes # (Manual) Eosinophils # (Manual) PT INR APTT D-Dimer Heparin Anti-Xa Level 0.22 L ABG pH POC ABG pCO2 POC ABG pO2 ABG pO2 ABG HCO3 ABG O2 Saturation ABG Base Excess ABG Hemoglobin ABG Oxyhemoglobin ABG Sodium ABG Potassium ABG Chloride ABG Glucose Oxyhemoglobin Carboxyhemoglobin Sodium Potassium Chloride Carbon Dioxide BUN Creatinine Glucose POC Glucose 233 H 255 H Lactic Acid Calcium Phosphorus Magnesium Ferritin Total Bilirubin Direct Bilirubin AST ALT Alkaline Phosphatase Lactate Dehydrogenase C-Reactive Protein Total Protein Albumin Triglycerides Lipase Arterial Blood Glucose Arterial Blood Ionized Calcium Urine WBC (Auto) Coronavirus (PCR) SARS-CoV-2 IgG Ab Crossmatch 07/02/20 07/02/20 07/02/20 03:51 05:35 11:39 WBC RBC Hgb Hct MCV MCH MCHC RDW Lymph % (Auto) [place] % (Auto) Lymph # (Auto) [place] # (Auto) Baso # (Auto) Seg Neutrophils % Seg Neuts % (Manual) Lymphocytes % (Manual) Nucleated RBC % Seg Neutrophils # Seg Neutrophils # Man Lymphocytes # (Manual) Monocytes # (Manual) Eosinophils # (Manual) PT INR APTT D-Dimer Heparin Anti-Xa Level ABG pH POC ABG pCO2 54.9 H POC ABG pO2 52.1 L ABG pO2 ABG HCO3 ABG O2 Saturation ABG Base Excess ABG Hemoglobin 11.9 L ABG Oxyhemoglobin 82.8 L ABG Sodium 130.2 L ABG Potassium ABG Chloride 92.0 L ABG Glucose 249 H Oxyhemoglobin Carboxyhemoglobin 1.9 H Sodium Potassium Chloride Carbon Dioxide BUN Creatinine Glucose POC Glucose 205 H 235 H Lactic Acid Calcium Phosphorus Magnesium Ferritin Total Bilirubin Direct Bilirubin AST ALT Alkaline Phosphatase Lactate Dehydrogenase C-Reactive Protein Total Protein Albumin Triglycerides Lipase Arterial Blood Glucose 249 H Arterial Blood Ionized Calcium Urine WBC (Auto) Coronavirus (PCR) SARS-CoV-2 IgG Ab Crossmatch 07/02/20 07/02/20 07/02/20 16:08 16:08 17:54 WBC 19.8 H RBC 3.28 L Hgb 10.7 L D Hct 32.7 L D MCV 100 H MCH 33 H MCHC RDW 17.2 H Lymph % (Auto) [place] % (Auto) Lymph # (Auto) [place] # (Auto) Baso # (Auto) Seg Neutrophils % Seg Neuts % (Manual) Lymphocytes % (Manual) Nucleated RBC % Seg Neutrophils # Seg Neutrophils # Man Lymphocytes # (Manual) Monocytes # (Manual) Eosinophils # (Manual) PT INR APTT D-Dimer Heparin Anti-Xa Level ABG pH POC ABG pCO2 POC ABG pO2 ABG pO2 ABG HCO3 ABG O2 Saturation ABG Base Excess ABG Hemoglobin ABG Oxyhemoglobin ABG Sodium ABG Potassium ABG Chloride ABG Glucose Oxyhemoglobin Carboxyhemoglobin Sodium 136 L Potassium Chloride 92.4 L Carbon Dioxide 35 H BUN Creatinine 0.3 L Glucose 203 H POC Glucose 175 H Lactic Acid Calcium Phosphorus Magnesium Ferritin Total Bilirubin Direct Bilirubin AST ALT Alkaline Phosphatase Lactate Dehydrogenase C-Reactive Protein Total Protein Albumin Triglycerides Lipase Arterial Blood Glucose Arterial Blood Ionized Calcium Urine WBC (Auto) Coronavirus (PCR) SARS-CoV-2 IgG Ab Crossmatch 07/02/20 07/03/20 07/03/20 23:46 03:25 05:54 WBC RBC Hgb Hct MCV MCH MCHC RDW Lymph % (Auto) [place] % (Auto) Lymph # (Auto) [place] # (Auto) Baso # (Auto) Seg Neutrophils % Seg Neuts % (Manual) Lymphocytes % (Manual) Nucleated RBC % Seg Neutrophils # Seg Neutrophils # Man Lymphocytes # (Manual) Monocytes # (Manual) Eosinophils # (Manual) PT INR APTT D-Dimer Heparin Anti-Xa Level ABG pH 7.468 H POC ABG pCO2 51.5 H POC ABG pO2 ABG pO2 ABG HCO3 ABG O2 Saturation ABG Base Excess ABG Hemoglobin ABG Oxyhemoglobin ABG Sodium 130.2 L ABG Potassium ABG Chloride 91.0 L ABG Glucose 210 H Oxyhemoglobin Carboxyhemoglobin 1.6 H Sodium Potassium Chloride Carbon Dioxide BUN Creatinine Glucose POC Glucose 173 H 125 H Lactic Acid Calcium Phosphorus Magnesium Ferritin Total Bilirubin Direct Bilirubin AST ALT Alkaline Phosphatase Lactate Dehydrogenase C-Reactive Protein Total Protein Albumin Triglycerides Lipase Arterial Blood Glucose 210 H Arterial Blood Ionized Calcium Urine WBC (Auto) Coronavirus (PCR) SARS-CoV-2 IgG Ab Crossmatch 07/03/20 07/03/20 07/03/20 11:43 12:20 12:20 WBC 16.5 H RBC 3.13 L Hgb 10.4 L Hct 31.8 L MCV 102 H MCH 33 H MCHC RDW 17.2 H Lymph % (Auto) [place] % (Auto) Lymph # (Auto) [place] # (Auto) Baso # (Auto) Seg Neutrophils % Seg Neuts % (Manual) Lymphocytes % (Manual) Nucleated RBC % Seg Neutrophils # Seg Neutrophils # Man Lymphocytes # (Manual) Monocytes # (Manual) Eosinophils # (Manual) PT INR APTT D-Dimer Heparin Anti-Xa Level ABG pH POC ABG pCO2 POC ABG pO2 ABG pO2 ABG HCO3 ABG O2 Saturation ABG Base Excess ABG Hemoglobin ABG Oxyhemoglobin ABG Sodium ABG Potassium ABG Chloride ABG Glucose Oxyhemoglobin Carboxyhemoglobin Sodium 132 L Potassium Chloride 88.5 L Carbon Dioxide 37 H BUN Creatinine 0.3 L Glucose 230 H POC Glucose 223 H Lactic Acid Calcium Phosphorus Magnesium Ferritin Total Bilirubin Direct Bilirubin AST ALT Alkaline Phosphatase Lactate Dehydrogenase C-Reactive Protein Total Protein Albumin Triglycerides Lipase Arterial Blood Glucose Arterial Blood Ionized Calcium Urine WBC (Auto) Coronavirus (PCR) SARS-CoV-2 IgG Ab Crossmatch 07/03/20 07/03/20 07/04/20 17:24 21:41 00:54 WBC RBC Hgb Hct MCV MCH MCHC RDW Lymph % (Auto) [place] % (Auto) Lymph # (Auto) [place] # (Auto) Baso # (Auto) Seg Neutrophils % Seg Neuts % (Manual) Lymphocytes % (Manual) Nucleated RBC % Seg Neutrophils # Seg Neutrophils # Man Lymphocytes # (Manual) Monocytes # (Manual) Eosinophils # (Manual) PT INR APTT D-Dimer Heparin Anti-Xa Level ABG pH POC ABG pCO2 POC ABG pO2 ABG pO2 ABG HCO3 ABG O2 Saturation ABG Base Excess ABG Hemoglobin ABG Oxyhemoglobin ABG Sodium ABG Potassium ABG Chloride ABG Glucose Oxyhemoglobin Carboxyhemoglobin Sodium Potassium Chloride Carbon Dioxide BUN Creatinine Glucose POC Glucose 163 H 220 H 195 H Lactic Acid Calcium Phosphorus Magnesium Ferritin Total Bilirubin Direct Bilirubin AST ALT Alkaline Phosphatase Lactate Dehydrogenase C-Reactive Protein Total Protein Albumin Triglycerides Lipase Arterial Blood Glucose Arterial Blood Ionized Calcium Urine WBC (Auto) Coronavirus (PCR) SARS-CoV-2 IgG Ab Crossmatch 07/04/20 07/04/20 07/04/20 03:25 04:00 04:00 WBC 14.9 H RBC 2.91 L Hgb 9.5 L Hct 29.2 L MCV 100 H MCH 33 H MCHC RDW 16.7 H Lymph % (Auto) 8.4 L [place] % (Auto) Lymph # (Auto) [place] # (Auto) 1.1 H Baso # (Auto) Seg Neutrophils % 84.2 H Seg Neuts % (Manual) Lymphocytes % (Manual) Nucleated RBC % Seg Neutrophils # 12.6 H Seg Neutrophils # Man Lymphocytes # (Manual) Monocytes # (Manual) Eosinophils # (Manual) PT INR APTT D-Dimer Heparin Anti-Xa Level ABG pH 7.474 H POC ABG pCO2 POC ABG pO2 51.8 L ABG pO2 ABG HCO3 ABG O2 Saturation ABG Base Excess ABG Hemoglobin ABG Oxyhemoglobin ABG Sodium ABG Potassium ABG Chloride ABG Glucose Oxyhemoglobin Carboxyhemoglobin Sodium Potassium 3.4 L Chloride 92.1 L Carbon Dioxide 34 H BUN Creatinine 0.3 L Glucose 173 H POC Glucose Lactic Acid Calcium Phosphorus Magnesium Ferritin Total Bilirubin Direct Bilirubin AST ALT Alkaline Phosphatase Lactate Dehydrogenase C-Reactive Protein Total Protein Albumin Triglycerides Lipase Arterial Blood Glucose Arterial Blood Ionized Calcium Urine WBC (Auto) Coronavirus (PCR) SARS-CoV-2 IgG Ab Crossmatch 07/04/20 07/04/20 07/04/20 06:18 11:39 17:18 WBC RBC Hgb Hct MCV MCH MCHC RDW Lymph % (Auto) [place] % (Auto) Lymph # (Auto) [place] # (Auto) Baso # (Auto) Seg Neutrophils % Seg Neuts % (Manual) Lymphocytes % (Manual) Nucleated RBC % Seg Neutrophils # Seg Neutrophils # Man Lymphocytes # (Manual) Monocytes # (Manual) Eosinophils # (Manual) PT INR APTT D-Dimer Heparin Anti-Xa Level ABG pH POC ABG pCO2 POC ABG pO2 ABG pO2 ABG HCO3 ABG O2 Saturation ABG Base Excess ABG Hemoglobin ABG Oxyhemoglobin ABG Sodium ABG Potassium ABG Chloride ABG Glucose Oxyhemoglobin Carboxyhemoglobin Sodium Potassium Chloride Carbon Dioxide BUN Creatinine Glucose POC Glucose 158 H 257 H 148 H Lactic Acid Calcium Phosphorus Magnesium Ferritin Total Bilirubin Direct Bilirubin AST ALT Alkaline Phosphatase Lactate Dehydrogenase C-Reactive Protein Total Protein Albumin Triglycerides Lipase Arterial Blood Glucose Arterial Blood Ionized Calcium Urine WBC (Auto) Coronavirus (PCR) SARS-CoV-2 IgG Ab Crossmatch 07/04/20 07/05/20 07/05/20 23:23 03:13 05:18 WBC 13.3 H RBC 2.90 L Hgb 9.8 L Hct 29.3 L MCV 101 H MCH 34 H MCHC RDW 17.0 H Lymph % (Auto) 11.1 L [place] % (Auto) Lymph # (Auto) [place] # (Auto) Baso # (Auto) Seg Neutrophils % 82.3 H Seg Neuts % (Manual) Lymphocytes % (Manual) Nucleated RBC % Seg Neutrophils # 10.9 H Seg Neutrophils # Man Lymphocytes # (Manual) Monocytes # (Manual) Eosinophils # (Manual) PT INR APTT D-Dimer Heparin Anti-Xa Level ABG pH 7.48 H POC ABG pCO2 52.0 H POC ABG pO2 ABG pO2 ABG HCO3 ABG O2 Saturation ABG Base Excess ABG Hemoglobin 10.0 L ABG Oxyhemoglobin ABG Sodium 131.0 L ABG Potassium 3.3 L ABG Chloride 93.0 L ABG Glucose 177 H Oxyhemoglobin Carboxyhemoglobin Sodium Potassium Chloride Carbon Dioxide BUN Creatinine Glucose POC Glucose 227 H Lactic Acid Calcium Phosphorus Magnesium Ferritin Total Bilirubin Direct Bilirubin AST ALT Alkaline Phosphatase Lactate Dehydrogenase C-Reactive Protein Total Protein Albumin Triglycerides Lipase Arterial Blood Glucose 177 H Arterial Blood Ionized Calcium Urine WBC (Auto) Coronavirus (PCR) SARS-CoV-2 IgG Ab Crossmatch 07/05/20 07/05/20 07/05/20 05:18 05:25 05:57 WBC RBC Hgb Hct MCV MCH MCHC RDW Lymph % (Auto) [place] % (Auto) Lymph # (Auto) [place] # (Auto) Baso # (Auto) Seg Neutrophils % Seg Neuts % (Manual) Lymphocytes % (Manual) Nucleated RBC % Seg Neutrophils # Seg Neutrophils # Man Lymphocytes # (Manual) Monocytes # (Manual) Eosinophils # (Manual) PT INR APTT D-Dimer Heparin Anti-Xa Level ABG pH 7.519 H POC ABG pCO2 POC ABG pO2 198.6 H ABG pO2 ABG HCO3 ABG O2 Saturation ABG Base Excess ABG Hemoglobin 10.3 L ABG Oxyhemoglobin 98.7 H ABG Sodium 133.6 L ABG Potassium 3.3 L ABG Chloride 93.0 L ABG Glucose 175 H Oxyhemoglobin Carboxyhemoglobin Sodium Potassium 3.4 L Chloride 92.5 L Carbon Dioxide 36 H BUN Creatinine 0.3 L Glucose 148 H POC Glucose 170 H Lactic Acid Calcium Phosphorus Magnesium Ferritin Total Bilirubin Direct Bilirubin AST ALT Alkaline Phosphatase Lactate Dehydrogenase C-Reactive Protein Total Protein Albumin Triglycerides Lipase Arterial Blood Glucose 175 H Arterial Blood Ionized Calcium Urine WBC (Auto) Coronavirus (PCR) SARS-CoV-2 IgG Ab Crossmatch 07/05/20 07/05/20 07/06/20 11:37 18:39 00:04 WBC RBC Hgb Hct MCV MCH MCHC RDW Lymph % (Auto) [place] % (Auto) Lymph # (Auto) [place] # (Auto) Baso # (Auto) Seg Neutrophils % Seg Neuts % (Manual) Lymphocytes % (Manual) Nucleated RBC % Seg Neutrophils # Seg Neutrophils # Man Lymphocytes # (Manual) Monocytes # (Manual) Eosinophils # (Manual) PT INR APTT D-Dimer Heparin Anti-Xa Level ABG pH POC ABG pCO2 POC ABG pO2 ABG pO2 ABG HCO3 ABG O2 Saturation ABG Base Excess ABG Hemoglobin ABG Oxyhemoglobin ABG Sodium ABG Potassium ABG Chloride ABG Glucose Oxyhemoglobin Carboxyhemoglobin Sodium Potassium Chloride Carbon Dioxide BUN Creatinine Glucose POC Glucose 195 H 200 H 222 H Lactic Acid Calcium Phosphorus Magnesium Ferritin Total Bilirubin Direct Bilirubin AST ALT Alkaline Phosphatase Lactate Dehydrogenase C-Reactive Protein Total Protein Albumin Triglycerides Lipase Arterial Blood Glucose Arterial Blood Ionized Calcium Urine WBC (Auto) Coronavirus (PCR) SARS-CoV-2 IgG Ab Crossmatch 07/06/20 07/06/20 07/06/20 05:25 06:52 06:52 WBC 15.8 H RBC 3.17 L Hgb 10.4 L Hct 31.5 L MCV 99 H MCH 33 H MCHC RDW 17.0 H Lymph % (Auto) [place] % (Auto) Lymph # (Auto) [place] # (Auto) Baso # (Auto) Seg Neutrophils % Seg Neuts % (Manual) Lymphocytes % (Manual) Nucleated RBC % Seg Neutrophils # Seg Neutrophils # Man Lymphocytes # (Manual) Monocytes # (Manual) Eosinophils # (Manual) PT INR APTT D-Dimer Heparin Anti-Xa Level ABG pH POC ABG pCO2 POC ABG pO2 ABG pO2 ABG HCO3 ABG O2 Saturation ABG Base Excess ABG Hemoglobin ABG Oxyhemoglobin ABG Sodium ABG Potassium ABG Chloride ABG Glucose Oxyhemoglobin Carboxyhemoglobin Sodium 135 L Potassium 3.4 L Chloride 91.9 L Carbon Dioxide 38 H BUN Creatinine 0.3 L Glucose 189 H POC Glucose 165 H Lactic Acid Calcium Phosphorus Magnesium Ferritin Total Bilirubin Direct Bilirubin AST ALT Alkaline Phosphatase Lactate Dehydrogenase C-Reactive Protein Total Protein Albumin Triglycerides Lipase Arterial Blood Glucose Arterial Blood Ionized Calcium Urine WBC (Auto) Coronavirus (PCR) SARS-CoV-2 IgG Ab Crossmatch 07/06/20 07/06/20 07/06/20 13:01 18:04 23:08 WBC RBC Hgb Hct MCV MCH MCHC RDW Lymph % (Auto) [place] % (Auto) Lymph # (Auto) [place] # (Auto) Baso # (Auto) Seg Neutrophils % Seg Neuts % (Manual) Lymphocytes % (Manual) Nucleated RBC % Seg Neutrophils # Seg Neutrophils # Man Lymphocytes # (Manual) Monocytes # (Manual) Eosinophils # (Manual) PT INR APTT D-Dimer Heparin Anti-Xa Level ABG pH POC ABG pCO2 POC ABG pO2 ABG pO2 ABG HCO3 ABG O2 Saturation ABG Base Excess ABG Hemoglobin ABG Oxyhemoglobin ABG Sodium ABG Potassium ABG Chloride ABG Glucose Oxyhemoglobin Carboxyhemoglobin Sodium Potassium Chloride Carbon Dioxide BUN Creatinine Glucose POC Glucose 195 H 169 H 173 H Lactic Acid Calcium Phosphorus Magnesium Ferritin Total Bilirubin Direct Bilirubin AST ALT Alkaline Phosphatase Lactate Dehydrogenase C-Reactive Protein Total Protein Albumin Triglycerides Lipase Arterial Blood Glucose Arterial Blood Ionized Calcium Urine WBC (Auto) Coronavirus (PCR) SARS-CoV-2 IgG Ab Crossmatch 07/07/20 07/07/20 07/07/20 05:35 05:35 05:39 WBC 17.6 H RBC 3.16 L Hgb 10.4 L Hct 31.5 L MCV 100 H MCH 33 H MCHC RDW 16.7 H Lymph % (Auto) 11.1 L [place] % (Auto) Lymph # (Auto) [place] # (Auto) 1.0 H Baso # (Auto) Seg Neutrophils % 83.0 H Seg Neuts % (Manual) Lymphocytes % (Manual) Nucleated RBC % Seg Neutrophils # 14.6 H Seg Neutrophils # Man Lymphocytes # (Manual) Monocytes # (Manual) Eosinophils # (Manual) PT INR APTT D-Dimer Heparin Anti-Xa Level ABG pH POC ABG pCO2 POC ABG pO2 ABG pO2 ABG HCO3 ABG O2 Saturation ABG Base Excess ABG Hemoglobin ABG Oxyhemoglobin ABG Sodium ABG Potassium ABG Chloride ABG Glucose Oxyhemoglobin Carboxyhemoglobin Sodium 135 L Potassium 3.4 L Chloride 94.3 L Carbon Dioxide 32 H BUN Creatinine 0.2 L Glucose 240 H POC Glucose 191 H Lactic Acid Calcium Phosphorus Magnesium Ferritin Total Bilirubin Direct Bilirubin AST ALT Alkaline Phosphatase Lactate Dehydrogenase C-Reactive Protein Total Protein Albumin Triglycerides Lipase Arterial Blood Glucose Arterial Blood Ionized Calcium Urine WBC (Auto) Coronavirus (PCR) SARS-CoV-2 IgG Ab Crossmatch 07/07/20 07/07/20 07/07/20 12:08 16:39 23:41 WBC RBC Hgb Hct MCV MCH MCHC RDW Lymph % (Auto) [place] % (Auto) Lymph # (Auto) [place] # (Auto) Baso # (Auto) Seg Neutrophils % Seg Neuts % (Manual) Lymphocytes % (Manual) Nucleated RBC % Seg Neutrophils # Seg Neutrophils # Man Lymphocytes # (Manual) Monocytes # (Manual) Eosinophils # (Manual) PT INR APTT D-Dimer Heparin Anti-Xa Level ABG pH POC ABG pCO2 POC ABG pO2 ABG pO2 ABG HCO3 ABG O2 Saturation ABG Base Excess ABG Hemoglobin ABG Oxyhemoglobin ABG Sodium ABG Potassium ABG Chloride ABG Glucose Oxyhemoglobin Carboxyhemoglobin Sodium Potassium Chloride Carbon Dioxide BUN Creatinine Glucose POC Glucose 248 H 209 H 231 H Lactic Acid Calcium Phosphorus Magnesium Ferritin Total Bilirubin Direct Bilirubin AST ALT Alkaline Phosphatase Lactate Dehydrogenase C-Reactive Protein Total Protein Albumin Triglycerides Lipase Arterial Blood Glucose Arterial Blood Ionized Calcium Urine WBC (Auto) Coronavirus (PCR) SARS-CoV-2 IgG Ab Crossmatch 07/08/20 07/08/20 07/08/20 04:58 04:58 05:38 WBC 21.0 H RBC 2.86 L Hgb 9.2 L Hct 28.6 L MCV 100 H MCH MCHC RDW 16.7 H Lymph % (Auto) [place] % (Auto) Lymph # (Auto) [place] # (Auto) Baso # (Auto) Seg Neutrophils % Seg Neuts % (Manual) 93.0 H Lymphocytes % (Manual) 3.0 L Nucleated RBC % Seg Neutrophils # Seg Neutrophils # Man 19.5 H Lymphocytes # (Manual) 0.6 L Monocytes # (Manual) Eosinophils # (Manual) PT INR APTT D-Dimer Heparin Anti-Xa Level ABG pH POC ABG pCO2 POC ABG pO2 ABG pO2 ABG HCO3 ABG O2 Saturation ABG Base Excess ABG Hemoglobin ABG Oxyhemoglobin ABG Sodium ABG Potassium ABG Chloride ABG Glucose Oxyhemoglobin Carboxyhemoglobin Sodium Potassium 3.0 L Chloride Carbon Dioxide BUN Creatinine 0.2 L Glucose 201 H POC Glucose 161 H Lactic Acid Calcium 7.9 L D Phosphorus Magnesium Ferritin Total Bilirubin Direct Bilirubin AST ALT Alkaline Phosphatase Lactate Dehydrogenase C-Reactive Protein Total Protein Albumin Triglycerides Lipase Arterial Blood Glucose Arterial Blood Ionized Calcium Urine WBC (Auto) Coronavirus (PCR) SARS-CoV-2 IgG Ab Crossmatch 07/08/20 07/08/20 07/08/20 12:19 16:26 Unknown WBC RBC Hgb Hct MCV MCH MCHC RDW Lymph % (Auto) [place] % (Auto) Lymph # (Auto) [place] # (Auto) Baso # (Auto) Seg Neutrophils % Seg Neuts % (Manual) Lymphocytes % (Manual) Nucleated RBC % Seg Neutrophils # Seg Neutrophils # Man Lymphocytes # (Manual) Monocytes # (Manual) Eosinophils # (Manual) PT INR APTT D-Dimer Heparin Anti-Xa Level ABG pH POC ABG pCO2 POC ABG pO2 ABG pO2 75.3 L ABG HCO3 34.3 H ABG O2 Saturation ABG Base Excess 8.7 H ABG Hemoglobin 10.2 L ABG Oxyhemoglobin ABG Sodium ABG Potassium ABG Chloride ABG Glucose Oxyhemoglobin 93.7 L Carboxyhemoglobin Sodium Potassium Chloride Carbon Dioxide BUN Creatinine Glucose POC Glucose 152 H 173 H Lactic Acid Calcium Phosphorus Magnesium Ferritin Total Bilirubin Direct Bilirubin AST ALT Alkaline Phosphatase Lactate Dehydrogenase C-Reactive Protein Total Protein Albumin Triglycerides Lipase Arterial Blood Glucose Arterial Blood Ionized Calcium Urine WBC (Auto) Coronavirus (PCR) SARS-CoV-2 IgG Ab Crossmatch 07/09/20 07/09/20 07/09/20 00:01 06:00 11:55 WBC RBC Hgb Hct MCV MCH MCHC RDW Lymph % (Auto) [place] % (Auto) Lymph # (Auto) [place] # (Auto) Baso # (Auto) Seg Neutrophils % Seg Neuts % (Manual) Lymphocytes % (Manual) Nucleated RBC % Seg Neutrophils # Seg Neutrophils # Man Lymphocytes # (Manual) Monocytes # (Manual) Eosinophils # (Manual) PT INR APTT D-Dimer Heparin Anti-Xa Level ABG pH POC ABG pCO2 POC ABG pO2 ABG pO2 ABG HCO3 ABG O2 Saturation ABG Base Excess ABG Hemoglobin ABG Oxyhemoglobin ABG Sodium ABG Potassium ABG Chloride ABG Glucose Oxyhemoglobin Carboxyhemoglobin Sodium Potassium Chloride Carbon Dioxide BUN Creatinine Glucose POC Glucose 207 H 141 H 228 H Lactic Acid Calcium Phosphorus Magnesium Ferritin Total Bilirubin Direct Bilirubin AST ALT Alkaline Phosphatase Lactate Dehydrogenase C-Reactive Protein Total Protein Albumin Triglycerides Lipase Arterial Blood Glucose Arterial Blood Ionized Calcium Urine WBC (Auto) Coronavirus (PCR) SARS-CoV-2 IgG Ab Crossmatch 07/09/20 07/09/20 07/09/20 16:47 23:53 Unknown WBC RBC Hgb Hct MCV MCH MCHC RDW Lymph % (Auto) [place] % (Auto) Lymph # (Auto) [place] # (Auto) Baso # (Auto) Seg Neutrophils % Seg Neuts % (Manual) Lymphocytes % (Manual) Nucleated RBC % Seg Neutrophils # Seg Neutrophils # Man Lymphocytes # (Manual) Monocytes # (Manual) Eosinophils # (Manual) PT INR APTT D-Dimer Heparin Anti-Xa Level ABG pH POC ABG pCO2 POC ABG pO2 ABG pO2 ABG HCO3 ABG O2 Saturation ABG Base Excess ABG Hemoglobin ABG Oxyhemoglobin ABG Sodium ABG Potassium ABG Chloride ABG Glucose Oxyhemoglobin Carboxyhemoglobin Sodium 132 L Potassium Chloride 92.7 L Carbon Dioxide 35 H BUN Creatinine 0.2 L Glucose 234 H POC Glucose 136 H 219 H Lactic Acid Calcium Phosphorus Magnesium Ferritin Total Bilirubin Direct Bilirubin AST ALT Alkaline Phosphatase Lactate Dehydrogenase C-Reactive Protein Total Protein Albumin Triglycerides Lipase Arterial Blood Glucose Arterial Blood Ionized Calcium Urine WBC (Auto) Coronavirus (PCR) SARS-CoV-2 IgG Ab Crossmatch 07/10/20 07/10/20 07/10/20 05:20 12:05 18:38 WBC RBC Hgb Hct MCV MCH MCHC RDW Lymph % (Auto) [place] % (Auto) Lymph # (Auto) [place] # (Auto) Baso # (Auto) Seg Neutrophils % Seg Neuts % (Manual) Lymphocytes % (Manual) Nucleated RBC % Seg Neutrophils # Seg Neutrophils # Man Lymphocytes # (Manual) Monocytes # (Manual) Eosinophils # (Manual) PT INR APTT D-Dimer Heparin Anti-Xa Level ABG pH POC ABG pCO2 POC ABG pO2 ABG pO2 ABG HCO3 ABG O2 Saturation ABG Base Excess ABG Hemoglobin ABG Oxyhemoglobin ABG Sodium ABG Potassium ABG Chloride ABG Glucose Oxyhemoglobin Carboxyhemoglobin Sodium Potassium Chloride Carbon Dioxide BUN Creatinine Glucose POC Glucose 221 H 174 H 152 H Lactic Acid Calcium Phosphorus Magnesium Ferritin Total Bilirubin Direct Bilirubin AST ALT Alkaline Phosphatase Lactate Dehydrogenase C-Reactive Protein Total Protein Albumin Triglycerides Lipase Arterial Blood Glucose Arterial Blood Ionized Calcium Urine WBC (Auto) Coronavirus (PCR) SARS-CoV-2 IgG Ab Crossmatch 07/11/20 07/11/20 07/11/20 00:16 05:42 08:13 WBC 11.9 H RBC 3.13 L Hgb 10.2 L Hct 31.2 L MCV 100 H MCH 33 H MCHC RDW 16.4 H Lymph % (Auto) [place] % (Auto) 9.3 H Lymph # (Auto) [place] # (Auto) 1.1 H Baso # (Auto) Seg Neutrophils % 72.7 H Seg Neuts % (Manual) Lymphocytes % (Manual) Nucleated RBC % Seg Neutrophils # 8.7 H Seg Neutrophils # Man Lymphocytes # (Manual) Monocytes # (Manual) Eosinophils # (Manual) PT INR APTT D-Dimer Heparin Anti-Xa Level ABG pH POC ABG pCO2 POC ABG pO2 ABG pO2 ABG HCO3 ABG O2 Saturation ABG Base Excess ABG Hemoglobin ABG Oxyhemoglobin ABG Sodium ABG Potassium ABG Chloride ABG Glucose Oxyhemoglobin Carboxyhemoglobin Sodium Potassium Chloride Carbon Dioxide BUN Creatinine Glucose POC Glucose 170 H 186 H Lactic Acid Calcium Phosphorus Magnesium Ferritin Total Bilirubin Direct Bilirubin AST ALT Alkaline Phosphatase Lactate Dehydrogenase C-Reactive Protein Total Protein Albumin Triglycerides Lipase Arterial Blood Glucose Arterial Blood Ionized Calcium Urine WBC (Auto) Coronavirus (PCR) SARS-CoV-2 IgG Ab Crossmatch 07/11/20 07/11/20 07/11/20 08:13 11:35 18:07 WBC RBC Hgb Hct MCV MCH MCHC RDW Lymph % (Auto) [place] % (Auto) Lymph # (Auto) [place] # (Auto) Baso # (Auto) Seg Neutrophils % Seg Neuts % (Manual) Lymphocytes % (Manual) Nucleated RBC % Seg Neutrophils # Seg Neutrophils # Man Lymphocytes # (Manual) Monocytes # (Manual) Eosinophils # (Manual) PT INR APTT D-Dimer Heparin Anti-Xa Level ABG pH POC ABG pCO2 POC ABG pO2 ABG pO2 ABG HCO3 ABG O2 Saturation ABG Base Excess ABG Hemoglobin ABG Oxyhemoglobin ABG Sodium ABG Potassium ABG Chloride ABG Glucose Oxyhemoglobin Carboxyhemoglobin Sodium 135 L Potassium Chloride 92.8 L Carbon Dioxide 38 H BUN Creatinine 0.2 L Glucose 132 H POC Glucose 129 H 156 H Lactic Acid Calcium Phosphorus Magnesium Ferritin Total Bilirubin Direct Bilirubin AST ALT Alkaline Phosphatase Lactate Dehydrogenase C-Reactive Protein Total Protein Albumin Triglycerides Lipase Arterial Blood Glucose Arterial Blood Ionized Calcium Urine WBC (Auto) Coronavirus (PCR) SARS-CoV-2 IgG Ab Crossmatch 07/11/20 07/11/20 07/12/20 18:36 23:18 05:28 WBC RBC Hgb Hct MCV MCH MCHC RDW Lymph % (Auto) [place] % (Auto) Lymph # (Auto) [place] # (Auto) Baso # (Auto) Seg Neutrophils % Seg Neuts % (Manual) Lymphocytes % (Manual) Nucleated RBC % Seg Neutrophils # Seg Neutrophils # Man Lymphocytes # (Manual) Monocytes # (Manual) Eosinophils # (Manual) PT INR APTT D-Dimer Heparin Anti-Xa Level ABG pH POC ABG pCO2 POC ABG pO2 70.9 L ABG pO2 ABG HCO3 ABG O2 Saturation ABG Base Excess ABG Hemoglobin 10.8 L ABG Oxyhemoglobin 92.5 L ABG Sodium 131.8 L ABG Potassium 3.2 L ABG Chloride 91.0 L ABG Glucose 181 H Oxyhemoglobin Carboxyhemoglobin Sodium Potassium Chloride Carbon Dioxide BUN Creatinine Glucose POC Glucose 189 H 190 H Lactic Acid Calcium Phosphorus Magnesium Ferritin Total Bilirubin Direct Bilirubin AST ALT Alkaline Phosphatase Lactate Dehydrogenase C-Reactive Protein Total Protein Albumin Triglycerides Lipase Arterial Blood Glucose 181 H Arterial Blood Ionized Calcium Urine WBC (Auto) Coronavirus (PCR) SARS-CoV-2 IgG Ab Crossmatch 07/12/20 07/12/20 07/12/20 11:33 17:45 23:59 WBC RBC Hgb Hct MCV MCH MCHC RDW Lymph % (Auto) [place] % (Auto) Lymph # (Auto) [place] # (Auto) Baso # (Auto) Seg Neutrophils % Seg Neuts % (Manual) Lymphocytes % (Manual) Nucleated RBC % Seg Neutrophils # Seg Neutrophils # Man Lymphocytes # (Manual) Monocytes # (Manual) Eosinophils # (Manual) PT INR APTT D-Dimer Heparin Anti-Xa Level ABG pH POC ABG pCO2 POC ABG pO2 ABG pO2 ABG HCO3 ABG O2 Saturation ABG Base Excess ABG Hemoglobin ABG Oxyhemoglobin ABG Sodium ABG Potassium ABG Chloride ABG Glucose Oxyhemoglobin Carboxyhemoglobin Sodium Potassium Chloride Carbon Dioxide BUN Creatinine Glucose POC Glucose 151 H 211 H 169 H Lactic Acid Calcium Phosphorus Magnesium Ferritin Total Bilirubin Direct Bilirubin AST ALT Alkaline Phosphatase Lactate Dehydrogenase C-Reactive Protein Total Protein Albumin Triglycerides Lipase Arterial Blood Glucose Arterial Blood Ionized Calcium Urine WBC (Auto) Coronavirus (PCR) SARS-CoV-2 IgG Ab Crossmatch 07/13/20 07/13/20 07/13/20 05:44 08:31 08:31 WBC 21.3 H RBC 2.92 L Hgb 9.7 L Hct 28.7 L MCV 98 H MCH 33 H MCHC RDW 16.8 H Lymph % (Auto) [place] % (Auto) Lymph # (Auto) [place] # (Auto) Baso # (Auto) Seg Neutrophils % Seg Neuts % (Manual) 96.0 H Lymphocytes % (Manual) 2.0 L Nucleated RBC % Seg Neutrophils # Seg Neutrophils # Man 20.4 H Lymphocytes # (Manual) 0.4 L Monocytes # (Manual) Eosinophils # (Manual) PT INR APTT D-Dimer Heparin Anti-Xa Level ABG pH POC ABG pCO2 POC ABG pO2 ABG pO2 ABG HCO3 ABG O2 Saturation ABG Base Excess ABG Hemoglobin ABG Oxyhemoglobin ABG Sodium ABG Potassium ABG Chloride ABG Glucose Oxyhemoglobin Carboxyhemoglobin Sodium Potassium 2.9 L* D Chloride 94.4 L Carbon Dioxide 37 H BUN Creatinine 0.2 L Glucose 166 H POC Glucose 122 H Lactic Acid Calcium Phosphorus Magnesium Ferritin Total Bilirubin Direct Bilirubin AST ALT Alkaline Phosphatase Lactate Dehydrogenase C-Reactive Protein Total Protein Albumin Triglycerides Lipase Arterial Blood Glucose Arterial Blood Ionized Calcium Urine WBC (Auto) Coronavirus (PCR) SARS-CoV-2 IgG Ab Crossmatch 07/13/20 07/13/20 07/13/20 11:54 13:52 17:40 WBC RBC Hgb Hct MCV MCH MCHC RDW Lymph % (Auto) [place] % (Auto) Lymph # (Auto) [place] # (Auto) Baso # (Auto) Seg Neutrophils % Seg Neuts % (Manual) Lymphocytes % (Manual) Nucleated RBC % Seg Neutrophils # Seg Neutrophils # Man Lymphocytes # (Manual) Monocytes # (Manual) Eosinophils # (Manual) PT INR APTT D-Dimer Heparin Anti-Xa Level ABG pH 7.477 H POC ABG pCO2 54.4 H POC ABG pO2 126.8 H ABG pO2 ABG HCO3 ABG O2 Saturation ABG Base Excess ABG Hemoglobin 11.5 L ABG Oxyhemoglobin ABG Sodium ABG Potassium 3.2 L ABG Chloride 92.0 L ABG Glucose 169 H Oxyhemoglobin Carboxyhemoglobin Sodium Potassium Chloride Carbon Dioxide BUN Creatinine Glucose POC Glucose 132 H 128 H Lactic Acid Calcium Phosphorus Magnesium Ferritin Total Bilirubin Direct Bilirubin AST ALT Alkaline Phosphatase Lactate Dehydrogenase C-Reactive Protein Total Protein Albumin Triglycerides Lipase Arterial Blood Glucose 169 H Arterial Blood Ionized Calcium Urine WBC (Auto) Coronavirus (PCR) SARS-CoV-2 IgG Ab Crossmatch 07/14/20 07/14/20 07/15/20 07:49 17:09 05:27 WBC RBC Hgb Hct MCV MCH MCHC RDW Lymph % (Auto) [place] % (Auto) Lymph # (Auto) [place] # (Auto) Baso # (Auto) Seg Neutrophils % Seg Neuts % (Manual) Lymphocytes % (Manual) Nucleated RBC % Seg Neutrophils # Seg Neutrophils # Man Lymphocytes # (Manual) Monocytes # (Manual) Eosinophils # (Manual) PT INR APTT D-Dimer Heparin Anti-Xa Level ABG pH POC ABG pCO2 POC ABG pO2 ABG pO2 ABG HCO3 ABG O2 Saturation ABG Base Excess ABG Hemoglobin ABG Oxyhemoglobin ABG Sodium ABG Potassium ABG Chloride ABG Glucose Oxyhemoglobin Carboxyhemoglobin Sodium Potassium 2.7 L* Chloride 94.0 L Carbon Dioxide 37 H BUN Creatinine 0.3 L Glucose 110 H POC Glucose 152 H 61 L Lactic Acid Calcium Phosphorus Magnesium Ferritin Total Bilirubin Direct Bilirubin AST ALT Alkaline Phosphatase Lactate Dehydrogenase C-Reactive Protein Total Protein Albumin Triglycerides Lipase Arterial Blood Glucose Arterial Blood Ionized Calcium Urine WBC (Auto) Coronavirus (PCR) SARS-CoV-2 IgG Ab Crossmatch 07/15/20 07/15/20 07/15/20 05:31 11:49 17:18 WBC RBC Hgb Hct MCV MCH MCHC RDW Lymph % (Auto) [place] % (Auto) Lymph # (Auto) [place] # (Auto) Baso # (Auto) Seg Neutrophils % Seg Neuts % (Manual) Lymphocytes % (Manual) Nucleated RBC % Seg Neutrophils # Seg Neutrophils # Man Lymphocytes # (Manual) Monocytes # (Manual) Eosinophils # (Manual) PT INR APTT D-Dimer Heparin Anti-Xa Level ABG pH POC ABG pCO2 POC ABG pO2 ABG pO2 ABG HCO3 ABG O2 Saturation ABG Base Excess ABG Hemoglobin ABG Oxyhemoglobin ABG Sodium ABG Potassium ABG Chloride ABG Glucose Oxyhemoglobin Carboxyhemoglobin Sodium Potassium 3.2 L Chloride 91.2 L Carbon Dioxide 33 H BUN Creatinine 0.3 L Glucose 139 H POC Glucose 148 H 196 H Lactic Acid Calcium Phosphorus Magnesium Ferritin Total Bilirubin Direct Bilirubin AST ALT Alkaline Phosphatase Lactate Dehydrogenase C-Reactive Protein Total Protein Albumin Triglycerides Lipase Arterial Blood Glucose Arterial Blood Ionized Calcium Urine WBC (Auto) Coronavirus (PCR) SARS-CoV-2 IgG Ab Crossmatch 07/15/20 07/16/20 07/16/20 23:08 05:18 05:19 WBC 11.3 H RBC 3.10 L Hgb 10.0 L Hct 30.3 L MCV 98 H MCH MCHC RDW 16.3 H Lymph % (Auto) [place] % (Auto) Lymph # (Auto) [place] # (Auto) Baso # (Auto) Seg Neutrophils % Seg Neuts % (Manual) Lymphocytes % (Manual) Nucleated RBC % Seg Neutrophils # Seg Neutrophils # Man Lymphocytes # (Manual) Monocytes # (Manual) Eosinophils # (Manual) PT INR APTT D-Dimer Heparin Anti-Xa Level ABG pH POC ABG pCO2 POC ABG pO2 ABG pO2 ABG HCO3 ABG O2 Saturation ABG Base Excess ABG Hemoglobin ABG Oxyhemoglobin ABG Sodium ABG Potassium ABG Chloride ABG Glucose Oxyhemoglobin Carboxyhemoglobin Sodium Potassium Chloride Carbon Dioxide BUN Creatinine Glucose POC Glucose 131 H 160 H Lactic Acid Calcium Phosphorus Magnesium Ferritin Total Bilirubin Direct Bilirubin AST ALT Alkaline Phosphatase Lactate Dehydrogenase C-Reactive Protein Total Protein Albumin Triglycerides Lipase Arterial Blood Glucose Arterial Blood Ionized Calcium Urine WBC (Auto) Coronavirus (PCR) SARS-CoV-2 IgG Ab Crossmatch 07/16/20 07/16/20 07/16/20 05:19 11:45 17:17 WBC RBC Hgb Hct MCV MCH MCHC RDW Lymph % (Auto) [place] % (Auto) Lymph # (Auto) [place] # (Auto) Baso # (Auto) Seg Neutrophils % Seg Neuts % (Manual) Lymphocytes % (Manual) Nucleated RBC % Seg Neutrophils # Seg Neutrophils # Man Lymphocytes # (Manual) Monocytes # (Manual) Eosinophils # (Manual) PT INR APTT D-Dimer Heparin Anti-Xa Level ABG pH POC ABG pCO2 POC ABG pO2 ABG pO2 ABG HCO3 ABG O2 Saturation ABG Base Excess ABG Hemoglobin ABG Oxyhemoglobin ABG Sodium ABG Potassium ABG Chloride ABG Glucose Oxyhemoglobin Carboxyhemoglobin Sodium 132 L Potassium 3.4 L Chloride 89.9 L Carbon Dioxide 39 H BUN Creatinine 0.3 L Glucose 174 H POC Glucose 169 H 143 H Lactic Acid Calcium Phosphorus Magnesium Ferritin Total Bilirubin Direct Bilirubin AST ALT Alkaline Phosphatase Lactate Dehydrogenase C-Reactive Protein Total Protein Albumin Triglycerides Lipase Arterial Blood Glucose Arterial Blood Ionized Calcium Urine WBC (Auto) Coronavirus (PCR) SARS-CoV-2 IgG Ab Crossmatch 07/16/20 07/17/20 07/17/20 23:54 05:32 11:26 WBC RBC Hgb Hct MCV MCH MCHC RDW Lymph % (Auto) [place] % (Auto) Lymph # (Auto) [place] # (Auto) Baso # (Auto) Seg Neutrophils % Seg Neuts % (Manual) Lymphocytes % (Manual) Nucleated RBC % Seg Neutrophils # Seg Neutrophils # Man Lymphocytes # (Manual) Monocytes # (Manual) Eosinophils # (Manual) PT INR APTT D-Dimer Heparin Anti-Xa Level ABG pH POC ABG pCO2 POC ABG pO2 ABG pO2 ABG HCO3 ABG O2 Saturation ABG Base Excess ABG Hemoglobin ABG Oxyhemoglobin ABG Sodium ABG Potassium ABG Chloride ABG Glucose Oxyhemoglobin Carboxyhemoglobin Sodium Potassium Chloride Carbon Dioxide BUN Creatinine Glucose POC Glucose 147 H 149 H 211 H Lactic Acid Calcium Phosphorus Magnesium Ferritin Total Bilirubin Direct Bilirubin AST ALT Alkaline Phosphatase Lactate Dehydrogenase C-Reactive Protein Total Protein Albumin Triglycerides Lipase Arterial Blood Glucose Arterial Blood Ionized Calcium Urine WBC (Auto) Coronavirus (PCR) SARS-CoV-2 IgG Ab Crossmatch 07/17/20 07/17/20 07/18/20 18:16 23:12 06:15 WBC RBC Hgb Hct MCV MCH MCHC RDW Lymph % (Auto) [place] % (Auto) Lymph # (Auto) [place] # (Auto) Baso # (Auto) Seg Neutrophils % Seg Neuts % (Manual) Lymphocytes % (Manual) Nucleated RBC % Seg Neutrophils # Seg Neutrophils # Man Lymphocytes # (Manual) Monocytes # (Manual) Eosinophils # (Manual) PT INR APTT D-Dimer Heparin Anti-Xa Level ABG pH POC ABG pCO2 POC ABG pO2 ABG pO2 ABG HCO3 ABG O2 Saturation ABG Base Excess ABG Hemoglobin ABG Oxyhemoglobin ABG Sodium ABG Potassium ABG Chloride ABG Glucose Oxyhemoglobin Carboxyhemoglobin Sodium Potassium Chloride Carbon Dioxide BUN Creatinine Glucose POC Glucose 161 H 136 H 108 H Lactic Acid Calcium Phosphorus Magnesium Ferritin Total Bilirubin Direct Bilirubin AST ALT Alkaline Phosphatase Lactate Dehydrogenase C-Reactive Protein Total Protein Albumin Triglycerides Lipase Arterial Blood Glucose Arterial Blood Ionized Calcium Urine WBC (Auto) Coronavirus (PCR) SARS-CoV-2 IgG Ab Crossmatch 07/18/20 07/18/20 07/18/20 08:47 08:47 11:50 WBC 17.7 H RBC 3.29 L Hgb 10.5 L Hct 31.8 L MCV 97 H MCH MCHC RDW 16.9 H Lymph % (Auto) [place] % (Auto) 8.6 H Lymph # (Auto) [place] # (Auto) 1.5 H Baso # (Auto) Seg Neutrophils % 74.6 H Seg Neuts % (Manual) Lymphocytes % (Manual) Nucleated RBC % Seg Neutrophils # 13.2 H Seg Neutrophils # Man Lymphocytes # (Manual) Monocytes # (Manual) Eosinophils # (Manual) PT INR APTT D-Dimer Heparin Anti-Xa Level ABG pH POC ABG pCO2 POC ABG pO2 ABG pO2 ABG HCO3 ABG O2 Saturation ABG Base Excess ABG Hemoglobin ABG Oxyhemoglobin ABG Sodium ABG Potassium ABG Chloride ABG Glucose Oxyhemoglobin Carboxyhemoglobin Sodium Potassium 2.8 L* Chloride 92.6 L Carbon Dioxide 40 H BUN Creatinine 0.3 L Glucose 177 H POC Glucose 178 H Lactic Acid Calcium Phosphorus Magnesium Ferritin Total Bilirubin Direct Bilirubin AST ALT Alkaline Phosphatase Lactate Dehydrogenase C-Reactive Protein Total Protein Albumin Triglycerides Lipase Arterial Blood Glucose Arterial Blood Ionized Calcium Urine WBC (Auto) Coronavirus (PCR) SARS-CoV-2 IgG Ab Crossmatch 07/18/20 07/18/20 07/19/20 17:18 23:33 05:22 WBC RBC Hgb Hct MCV MCH MCHC RDW Lymph % (Auto) [place] % (Auto) Lymph # (Auto) [place] # (Auto) Baso # (Auto) Seg Neutrophils % Seg Neuts % (Manual) Lymphocytes % (Manual) Nucleated RBC % Seg Neutrophils # Seg Neutrophils # Man Lymphocytes # (Manual) Monocytes # (Manual) Eosinophils # (Manual) PT INR APTT D-Dimer Heparin Anti-Xa Level ABG pH POC ABG pCO2 POC ABG pO2 ABG pO2 ABG HCO3 ABG O2 Saturation ABG Base Excess ABG Hemoglobin ABG Oxyhemoglobin ABG Sodium ABG Potassium ABG Chloride ABG Glucose Oxyhemoglobin Carboxyhemoglobin Sodium Potassium Chloride Carbon Dioxide BUN Creatinine Glucose POC Glucose 171 H 162 H 166 H Lactic Acid Calcium Phosphorus Magnesium Ferritin Total Bilirubin Direct Bilirubin AST ALT Alkaline Phosphatase Lactate Dehydrogenase C-Reactive Protein Total Protein Albumin Triglycerides Lipase Arterial Blood Glucose Arterial Blood Ionized Calcium Urine WBC (Auto) Coronavirus (PCR) SARS-CoV-2 IgG Ab Crossmatch 07/19/20 07/19/20 07/19/20 12:00 16:27 23:41 WBC RBC Hgb Hct MCV MCH MCHC RDW Lymph % (Auto) [place] % (Auto) Lymph # (Auto) [place] # (Auto) Baso # (Auto) Seg Neutrophils % Seg Neuts % (Manual) Lymphocytes % (Manual) Nucleated RBC % Seg Neutrophils # Seg Neutrophils # Man Lymphocytes # (Manual) Monocytes # (Manual) Eosinophils # (Manual) PT INR APTT D-Dimer Heparin Anti-Xa Level ABG pH POC ABG pCO2 POC ABG pO2 ABG pO2 ABG HCO3 ABG O2 Saturation ABG Base Excess ABG Hemoglobin ABG Oxyhemoglobin ABG Sodium ABG Potassium ABG Chloride ABG Glucose Oxyhemoglobin Carboxyhemoglobin Sodium Potassium Chloride Carbon Dioxide BUN Creatinine Glucose POC Glucose 201 H 205 H 106 H Lactic Acid Calcium Phosphorus Magnesium Ferritin Total Bilirubin Direct Bilirubin AST ALT Alkaline Phosphatase Lactate Dehydrogenase C-Reactive Protein Total Protein Albumin Triglycerides Lipase Arterial Blood Glucose Arterial Blood Ionized Calcium Urine WBC (Auto) Coronavirus (PCR) SARS-CoV-2 IgG Ab Crossmatch 07/20/20 07/20/20 07/20/20 05:28 11:18 17:30 WBC RBC Hgb Hct MCV MCH MCHC RDW Lymph % (Auto) [place] % (Auto) Lymph # (Auto) [place] # (Auto) Baso # (Auto) Seg Neutrophils % Seg Neuts % (Manual) Lymphocytes % (Manual) Nucleated RBC % Seg Neutrophils # Seg Neutrophils # Man Lymphocytes # (Manual) Monocytes # (Manual) Eosinophils # (Manual) PT INR APTT D-Dimer Heparin Anti-Xa Level ABG pH POC ABG pCO2 POC ABG pO2 ABG pO2 ABG HCO3 ABG O2 Saturation ABG Base Excess ABG Hemoglobin ABG Oxyhemoglobin ABG Sodium ABG Potassium ABG Chloride ABG Glucose Oxyhemoglobin Carboxyhemoglobin Sodium Potassium Chloride Carbon Dioxide BUN Creatinine Glucose POC Glucose 130 H 195 H 141 H Lactic Acid Calcium Phosphorus Magnesium Ferritin Total Bilirubin Direct Bilirubin AST ALT Alkaline Phosphatase Lactate Dehydrogenase C-Reactive Protein Total Protein Albumin Triglycerides Lipase Arterial Blood Glucose Arterial Blood Ionized Calcium Urine WBC (Auto) Coronavirus (PCR) SARS-CoV-2 IgG Ab Crossmatch 07/20/20 07/21/20 07/21/20 23:26 05:03 17:03 WBC RBC Hgb Hct MCV MCH MCHC RDW Lymph % (Auto) [place] % (Auto) Lymph # (Auto) [place] # (Auto) Baso # (Auto) Seg Neutrophils % Seg Neuts % (Manual) Lymphocytes % (Manual) Nucleated RBC % Seg Neutrophils # Seg Neutrophils # Man Lymphocytes # (Manual) Monocytes # (Manual) Eosinophils # (Manual) PT INR APTT D-Dimer Heparin Anti-Xa Level ABG pH POC ABG pCO2 POC ABG pO2 ABG pO2 ABG HCO3 ABG O2 Saturation ABG Base Excess ABG Hemoglobin ABG Oxyhemoglobin ABG Sodium ABG Potassium ABG Chloride ABG Glucose Oxyhemoglobin Carboxyhemoglobin Sodium Potassium Chloride Carbon Dioxide BUN Creatinine Glucose POC Glucose 116 H 142 H 181 H Lactic Acid Calcium Phosphorus Magnesium Ferritin Total Bilirubin Direct Bilirubin AST ALT Alkaline Phosphatase Lactate Dehydrogenase C-Reactive Protein Total Protein Albumin Triglycerides Lipase Arterial Blood Glucose Arterial Blood Ionized Calcium Urine WBC (Auto) Coronavirus (PCR) SARS-CoV-2 IgG Ab Crossmatch 07/21/20 07/22/20 07/22/20 23:51 06:09 11:40 WBC RBC Hgb Hct MCV MCH MCHC RDW Lymph % (Auto) [place] % (Auto) Lymph # (Auto) [place] # (Auto) Baso # (Auto) Seg Neutrophils % Seg Neuts % (Manual) Lymphocytes % (Manual) Nucleated RBC % Seg Neutrophils # Seg Neutrophils # Man Lymphocytes # (Manual) Monocytes # (Manual) Eosinophils # (Manual) PT INR APTT D-Dimer Heparin Anti-Xa Level ABG pH POC ABG pCO2 POC ABG pO2 ABG pO2 ABG HCO3 ABG O2 Saturation ABG Base Excess ABG Hemoglobin ABG Oxyhemoglobin ABG Sodium ABG Potassium ABG Chloride ABG Glucose Oxyhemoglobin Carboxyhemoglobin Sodium Potassium Chloride Carbon Dioxide BUN Creatinine Glucose POC Glucose 127 H 136 H 160 H Lactic Acid Calcium Phosphorus Magnesium Ferritin Total Bilirubin Direct Bilirubin AST ALT Alkaline Phosphatase Lactate Dehydrogenase C-Reactive Protein Total Protein Albumin Triglycerides Lipase Arterial Blood Glucose Arterial Blood Ionized Calcium Urine WBC (Auto) Coronavirus (PCR) SARS-CoV-2 IgG Ab Crossmatch 07/22/20 07/22/20 07/23/20 18:14 23:25 05:58 WBC 12.2 H RBC 3.44 L Hgb 10.9 L Hct 33.9 L MCV 99 H MCH MCHC RDW 16.9 H Lymph % (Auto) [place] % (Auto) 10.0 H Lymph # (Auto) [place] # (Auto) 1.2 H Baso # (Auto) Seg Neutrophils % Seg Neuts % (Manual) Lymphocytes % (Manual) Nucleated RBC % Seg Neutrophils # 8.3 H Seg Neutrophils # Man Lymphocytes # (Manual) Monocytes # (Manual) Eosinophils # (Manual) PT INR APTT D-Dimer Heparin Anti-Xa Level ABG pH POC ABG pCO2 POC ABG pO2 ABG pO2 ABG HCO3 ABG O2 Saturation ABG Base Excess ABG Hemoglobin ABG Oxyhemoglobin ABG Sodium ABG Potassium ABG Chloride ABG Glucose Oxyhemoglobin Carboxyhemoglobin Sodium Potassium Chloride Carbon Dioxide BUN Creatinine Glucose POC Glucose 189 H 164 H Lactic Acid Calcium Phosphorus Magnesium Ferritin Total Bilirubin Direct Bilirubin AST ALT Alkaline Phosphatase Lactate Dehydrogenase C-Reactive Protein Total Protein Albumin Triglycerides Lipase Arterial Blood Glucose Arterial Blood Ionized Calcium Urine WBC (Auto) Coronavirus (PCR) SARS-CoV-2 IgG Ab Crossmatch 07/23/20 07/23/20 07/23/20 05:58 06:02 12:14 WBC RBC Hgb Hct MCV MCH MCHC RDW Lymph % (Auto) [place] % (Auto) Lymph # (Auto) [place] # (Auto) Baso # (Auto) Seg Neutrophils % Seg Neuts % (Manual) Lymphocytes % (Manual) Nucleated RBC % Seg Neutrophils # Seg Neutrophils # Man Lymphocytes # (Manual) Monocytes # (Manual) Eosinophils # (Manual) PT INR APTT D-Dimer Heparin Anti-Xa Level ABG pH POC ABG pCO2 POC ABG pO2 ABG pO2 ABG HCO3 ABG O2 Saturation ABG Base Excess ABG Hemoglobin ABG Oxyhemoglobin ABG Sodium ABG Potassium ABG Chloride ABG Glucose Oxyhemoglobin Carboxyhemoglobin Sodium Potassium 2.9 L* Chloride 94.9 L Carbon Dioxide 33 H D BUN Creatinine 0.4 L Glucose 129 H POC Glucose 111 H 142 H Lactic Acid Calcium Phosphorus Magnesium Ferritin Total Bilirubin Direct Bilirubin AST ALT Alkaline Phosphatase Lactate Dehydrogenase C-Reactive Protein Total Protein Albumin 3.5 L Triglycerides Lipase Arterial Blood Glucose Arterial Blood Ionized Calcium Urine WBC (Auto) Coronavirus (PCR) SARS-CoV-2 IgG Ab Crossmatch 07/23/20 07/23/20 07/24/20 17:20 23:39 05:05 WBC 13.3 H RBC 3.40 L Hgb 10.8 L Hct 33.4 L MCV 98 H MCH MCHC RDW 16.7 H Lymph % (Auto) [place] % (Auto) 10.0 H Lymph # (Auto) [place] # (Auto) 1.3 H Baso # (Auto) Seg Neutrophils % Seg Neuts % (Manual) Lymphocytes % (Manual) Nucleated RBC % Seg Neutrophils # 9.0 H Seg Neutrophils # Man Lymphocytes # (Manual) Monocytes # (Manual) Eosinophils # (Manual) PT INR APTT D-Dimer Heparin Anti-Xa Level ABG pH POC ABG pCO2 POC ABG pO2 ABG pO2 ABG HCO3 ABG O2 Saturation ABG Base Excess ABG Hemoglobin ABG Oxyhemoglobin ABG Sodium ABG Potassium ABG Chloride ABG Glucose Oxyhemoglobin Carboxyhemoglobin Sodium Potassium Chloride Carbon Dioxide BUN Creatinine Glucose POC Glucose 150 H 120 H Lactic Acid Calcium Phosphorus Magnesium Ferritin Total Bilirubin Direct Bilirubin AST ALT Alkaline Phosphatase Lactate Dehydrogenase C-Reactive Protein Total Protein Albumin Triglycerides Lipase Arterial Blood Glucose Arterial Blood Ionized Calcium Urine WBC (Auto) Coronavirus (PCR) SARS-CoV-2 IgG Ab Crossmatch 07/24/20 07/24/20 07/24/20 05:05 05:39 11:30 WBC RBC Hgb Hct MCV MCH MCHC RDW Lymph % (Auto) [place] % (Auto) Lymph # (Auto) [place] # (Auto) Baso # (Auto) Seg Neutrophils % Seg Neuts % (Manual) Lymphocytes % (Manual) Nucleated RBC % Seg Neutrophils # Seg Neutrophils # Man Lymphocytes # (Manual) Monocytes # (Manual) Eosinophils # (Manual) PT INR APTT D-Dimer Heparin Anti-Xa Level ABG pH POC ABG pCO2 POC ABG pO2 ABG pO2 ABG HCO3 ABG O2 Saturation ABG Base Excess ABG Hemoglobin ABG Oxyhemoglobin ABG Sodium ABG Potassium ABG Chloride ABG Glucose Oxyhemoglobin Carboxyhemoglobin Sodium Potassium Chloride 97.4 L Carbon Dioxide BUN Creatinine 0.3 L Glucose 111 H POC Glucose 118 H 160 H Lactic Acid Calcium Phosphorus Magnesium Ferritin Total Bilirubin Direct Bilirubin AST ALT Alkaline Phosphatase Lactate Dehydrogenase C-Reactive Protein Total Protein Albumin Triglycerides Lipase Arterial Blood Glucose Arterial Blood Ionized Calcium Urine WBC (Auto) Coronavirus (PCR) SARS-CoV-2 IgG Ab Crossmatch 07/24/20 07/24/20 07/25/20 16:45 23:43 05:00 WBC RBC Hgb Hct MCV MCH MCHC RDW Lymph % (Auto) [place] % (Auto) Lymph # (Auto) [place] # (Auto) Baso # (Auto) Seg Neutrophils % Seg Neuts % (Manual) Lymphocytes % (Manual) Nucleated RBC % Seg Neutrophils # Seg Neutrophils # Man Lymphocytes # (Manual) Monocytes # (Manual) Eosinophils # (Manual) PT INR APTT D-Dimer Heparin Anti-Xa Level ABG pH POC ABG pCO2 POC ABG pO2 ABG pO2 ABG HCO3 ABG O2 Saturation ABG Base Excess ABG Hemoglobin ABG Oxyhemoglobin ABG Sodium ABG Potassium ABG Chloride ABG Glucose Oxyhemoglobin Carboxyhemoglobin Sodium Potassium Chloride Carbon Dioxide BUN Creatinine Glucose POC Glucose 181 H 122 H 114 H Lactic Acid Calcium Phosphorus Magnesium Ferritin Total Bilirubin Direct Bilirubin AST ALT Alkaline Phosphatase Lactate Dehydrogenase C-Reactive Protein Total Protein Albumin Triglycerides Lipase Arterial Blood Glucose Arterial Blood Ionized Calcium Urine WBC (Auto) Coronavirus (PCR) SARS-CoV-2 IgG Ab Crossmatch 07/25/20 07/25/20 07/25/20 11:44 16:44 23:41 WBC RBC Hgb Hct MCV MCH MCHC RDW Lymph % (Auto) [place] % (Auto) Lymph # (Auto) [place] # (Auto) Baso # (Auto) Seg Neutrophils % Seg Neuts % (Manual) Lymphocytes % (Manual) Nucleated RBC % Seg Neutrophils # Seg Neutrophils # Man Lymphocytes # (Manual) Monocytes # (Manual) Eosinophils # (Manual) PT INR APTT D-Dimer Heparin Anti-Xa Level ABG pH POC ABG pCO2 POC ABG pO2 ABG pO2 ABG HCO3 ABG O2 Saturation ABG Base Excess ABG Hemoglobin ABG Oxyhemoglobin ABG Sodium ABG Potassium ABG Chloride ABG Glucose Oxyhemoglobin Carboxyhemoglobin Sodium Potassium Chloride Carbon Dioxide BUN Creatinine Glucose POC Glucose 298 H 166 H 133 H Lactic Acid Calcium Phosphorus Magnesium Ferritin Total Bilirubin Direct Bilirubin AST ALT Alkaline Phosphatase Lactate Dehydrogenase C-Reactive Protein Total Protein Albumin Triglycerides Lipase Arterial Blood Glucose Arterial Blood Ionized Calcium Urine WBC (Auto) Coronavirus (PCR) SARS-CoV-2 IgG Ab Crossmatch 07/26/20 07/26/20 07/26/20 05:17 11:17 18:07 WBC RBC Hgb Hct MCV MCH MCHC RDW Lymph % (Auto) [place] % (Auto) Lymph # (Auto) [place] # (Auto) Baso # (Auto) Seg Neutrophils % Seg Neuts % (Manual) Lymphocytes % (Manual) Nucleated RBC % Seg Neutrophils # Seg Neutrophils # Man Lymphocytes # (Manual) Monocytes # (Manual) Eosinophils # (Manual) PT INR APTT D-Dimer Heparin Anti-Xa Level ABG pH POC ABG pCO2 POC ABG pO2 ABG pO2 ABG HCO3 ABG O2 Saturation ABG Base Excess ABG Hemoglobin ABG Oxyhemoglobin ABG Sodium ABG Potassium ABG Chloride ABG Glucose Oxyhemoglobin Carboxyhemoglobin Sodium Potassium Chloride Carbon Dioxide BUN Creatinine Glucose POC Glucose 113 H 157 H 154 H Lactic Acid Calcium Phosphorus Magnesium Ferritin Total Bilirubin Direct Bilirubin AST ALT Alkaline Phosphatase Lactate Dehydrogenase C-Reactive Protein Total Protein Albumin Triglycerides Lipase Arterial Blood Glucose Arterial Blood Ionized Calcium Urine WBC (Auto) Coronavirus (PCR) SARS-CoV-2 IgG Ab Crossmatch 07/26/20 07/27/20 07/27/20 23:44 08:26 08:26 WBC RBC 3.63 L Hgb Hct MCV 98 H MCH MCHC RDW 17.5 H Lymph % (Auto) [place] % (Auto) 10.6 H Lymph # (Auto) [place] # (Auto) 1.1 H Baso # (Auto) Seg Neutrophils % Seg Neuts % (Manual) Lymphocytes % (Manual) Nucleated RBC % Seg Neutrophils # Seg Neutrophils # Man Lymphocytes # (Manual) Monocytes # (Manual) Eosinophils # (Manual) PT INR APTT D-Dimer Heparin Anti-Xa Level ABG pH POC ABG pCO2 POC ABG pO2 ABG pO2 ABG HCO3 ABG O2 Saturation ABG Base Excess ABG Hemoglobin ABG Oxyhemoglobin ABG Sodium ABG Potassium ABG Chloride ABG Glucose Oxyhemoglobin Carboxyhemoglobin Sodium Potassium Chloride 97.9 L Carbon Dioxide 37 H D BUN Creatinine 0.4 L Glucose 115 H POC Glucose 148 H Lactic Acid Calcium Phosphorus Magnesium Ferritin Total Bilirubin Direct Bilirubin AST ALT Alkaline Phosphatase Lactate Dehydrogenase C-Reactive Protein Total Protein Albumin Triglycerides Lipase Arterial Blood Glucose Arterial Blood Ionized Calcium Urine WBC (Auto) Coronavirus (PCR) SARS-CoV-2 IgG Ab Crossmatch 07/27/20 07/27/20 07/27/20 11:41 16:50 23:22 WBC RBC Hgb Hct MCV MCH MCHC RDW Lymph % (Auto) [place] % (Auto) Lymph # (Auto) [place] # (Auto) Baso # (Auto) Seg Neutrophils % Seg Neuts % (Manual) Lymphocytes % (Manual) Nucleated RBC % Seg Neutrophils # Seg Neutrophils # Man Lymphocytes # (Manual) Monocytes # (Manual) Eosinophils # (Manual) PT INR APTT D-Dimer Heparin Anti-Xa Level ABG pH POC ABG pCO2 POC ABG pO2 ABG pO2 ABG HCO3 ABG O2 Saturation ABG Base Excess ABG Hemoglobin ABG Oxyhemoglobin ABG Sodium ABG Potassium ABG Chloride ABG Glucose Oxyhemoglobin Carboxyhemoglobin Sodium Potassium Chloride Carbon Dioxide BUN Creatinine Glucose POC Glucose 169 H 132 H 120 H Lactic Acid Calcium Phosphorus Magnesium Ferritin Total Bilirubin Direct Bilirubin AST ALT Alkaline Phosphatase Lactate Dehydrogenase C-Reactive Protein Total Protein Albumin Triglycerides Lipase Arterial Blood Glucose Arterial Blood Ionized Calcium Urine WBC (Auto) Coronavirus (PCR) SARS-CoV-2 IgG Ab Crossmatch 07/28/20 07/29/20 07/29/20 17:39 14:14 16:32 WBC RBC Hgb Hct MCV MCH MCHC RDW Lymph % (Auto) [place] % (Auto) Lymph # (Auto) [place] # (Auto) Baso # (Auto) Seg Neutrophils % Seg Neuts % (Manual) Lymphocytes % (Manual) Nucleated RBC % Seg Neutrophils # Seg Neutrophils # Man Lymphocytes # (Manual) Monocytes # (Manual) Eosinophils # (Manual) PT INR APTT D-Dimer Heparin Anti-Xa Level ABG pH POC ABG pCO2 POC ABG pO2 ABG pO2 ABG HCO3 ABG O2 Saturation ABG Base Excess ABG Hemoglobin ABG Oxyhemoglobin ABG Sodium ABG Potassium ABG Chloride ABG Glucose Oxyhemoglobin Carboxyhemoglobin Sodium Potassium Chloride Carbon Dioxide BUN Creatinine Glucose POC Glucose 187 H 188 H 193 H Lactic Acid Calcium Phosphorus Magnesium Ferritin Total Bilirubin Direct Bilirubin AST ALT Alkaline Phosphatase Lactate Dehydrogenase C-Reactive Protein Total Protein Albumin Triglycerides Lipase Arterial Blood Glucose Arterial Blood Ionized Calcium Urine WBC (Auto) Coronavirus (PCR) SARS-CoV-2 IgG Ab Crossmatch 07/30/20 07/30/20 07/30/20 12:03 15:59 23:20 WBC RBC Hgb Hct MCV MCH MCHC RDW Lymph % (Auto) [place] % (Auto) Lymph # (Auto) [place] # (Auto) Baso # (Auto) Seg Neutrophils % Seg Neuts % (Manual) Lymphocytes % (Manual) Nucleated RBC % Seg Neutrophils # Seg Neutrophils # Man Lymphocytes # (Manual) Monocytes # (Manual) Eosinophils # (Manual) PT INR APTT D-Dimer Heparin Anti-Xa Level ABG pH POC ABG pCO2 POC ABG pO2 ABG pO2 ABG HCO3 ABG O2 Saturation ABG Base Excess ABG Hemoglobin ABG Oxyhemoglobin ABG Sodium ABG Potassium ABG Chloride ABG Glucose Oxyhemoglobin Carboxyhemoglobin Sodium Potassium Chloride Carbon Dioxide BUN Creatinine Glucose POC Glucose 133 H 191 H 144 H Lactic Acid Calcium Phosphorus Magnesium Ferritin Total Bilirubin Direct Bilirubin AST ALT Alkaline Phosphatase Lactate Dehydrogenase C-Reactive Protein Total Protein Albumin Triglycerides Lipase Arterial Blood Glucose Arterial Blood Ionized Calcium Urine WBC (Auto) Coronavirus (PCR) SARS-CoV-2 IgG Ab Crossmatch 07/31/20 07/31/20 07/31/20 05:28 12:01 16:43 WBC RBC Hgb Hct MCV MCH MCHC RDW Lymph % (Auto) [place] % (Auto) Lymph # (Auto) [place] # (Auto) Baso # (Auto) Seg Neutrophils % Seg Neuts % (Manual) Lymphocytes % (Manual) Nucleated RBC % Seg Neutrophils # Seg Neutrophils # Man Lymphocytes # (Manual) Monocytes # (Manual) Eosinophils # (Manual) PT INR APTT D-Dimer Heparin Anti-Xa Level ABG pH POC ABG pCO2 POC ABG pO2 ABG pO2 ABG HCO3 ABG O2 Saturation ABG Base Excess ABG Hemoglobin ABG Oxyhemoglobin ABG Sodium ABG Potassium ABG Chloride ABG Glucose Oxyhemoglobin Carboxyhemoglobin Sodium Potassium Chloride Carbon Dioxide BUN Creatinine Glucose POC Glucose 128 H 137 H 170 H Lactic Acid Calcium Phosphorus Magnesium Ferritin Total Bilirubin Direct Bilirubin AST ALT Alkaline Phosphatase Lactate Dehydrogenase C-Reactive Protein Total Protein Albumin Triglycerides Lipase Arterial Blood Glucose Arterial Blood Ionized Calcium Urine WBC (Auto) Coronavirus (PCR) SARS-CoV-2 IgG Ab Crossmatch 07/31/20 08/01/20 08/01/20 20:28 07:44 11:02 WBC RBC Hgb Hct MCV MCH MCHC RDW Lymph % (Auto) [place] % (Auto) Lymph # (Auto) [place] # (Auto) Baso # (Auto) Seg Neutrophils % Seg Neuts % (Manual) Lymphocytes % (Manual) Nucleated RBC % Seg Neutrophils # Seg Neutrophils # Man Lymphocytes # (Manual) Monocytes # (Manual) Eosinophils # (Manual) PT INR APTT D-Dimer Heparin Anti-Xa Level ABG pH POC ABG pCO2 POC ABG pO2 ABG pO2 ABG HCO3 ABG O2 Saturation ABG Base Excess ABG Hemoglobin ABG Oxyhemoglobin ABG Sodium ABG Potassium ABG Chloride ABG Glucose Oxyhemoglobin Carboxyhemoglobin Sodium Potassium Chloride Carbon Dioxide BUN Creatinine Glucose POC Glucose 142 H 111 H 137 H Lactic Acid Calcium Phosphorus Magnesium Ferritin Total Bilirubin Direct Bilirubin AST ALT Alkaline Phosphatase Lactate Dehydrogenase C-Reactive Protein Total Protein Albumin Triglycerides Lipase Arterial Blood Glucose Arterial Blood Ionized Calcium Urine WBC (Auto) Coronavirus (PCR) SARS-CoV-2 IgG Ab Crossmatch 08/01/20 08/01/20 08/02/20 15:46 20:46 05:55 WBC 12.4 H RBC Hgb Hct MCV 99 H MCH MCHC RDW 16.9 H Lymph % (Auto) [place] % (Auto) 9.7 H Lymph # (Auto) [place] # (Auto) 1.2 H Baso # (Auto) Seg Neutrophils % Seg Neuts % (Manual) Lymphocytes % (Manual) Nucleated RBC % Seg Neutrophils # 8.5 H Seg Neutrophils # Man Lymphocytes # (Manual) Monocytes # (Manual) Eosinophils # (Manual) PT INR APTT D-Dimer Heparin Anti-Xa Level ABG pH POC ABG pCO2 POC ABG pO2 ABG pO2 ABG HCO3 ABG O2 Saturation ABG Base Excess ABG Hemoglobin ABG Oxyhemoglobin ABG Sodium ABG Potassium ABG Chloride ABG Glucose Oxyhemoglobin Carboxyhemoglobin Sodium Potassium Chloride Carbon Dioxide BUN Creatinine Glucose POC Glucose 131 H 123 H Lactic Acid Calcium Phosphorus Magnesium Ferritin Total Bilirubin Direct Bilirubin AST ALT Alkaline Phosphatase Lactate Dehydrogenase C-Reactive Protein Total Protein Albumin Triglycerides Lipase Arterial Blood Glucose Arterial Blood Ionized Calcium Urine WBC (Auto) Coronavirus (PCR) SARS-CoV-2 IgG Ab Crossmatch 08/02/20 08/02/20 08/02/20 05:55 08:19 12:24 WBC RBC Hgb Hct MCV MCH MCHC RDW Lymph % (Auto) [place] % (Auto) Lymph # (Auto) [place] # (Auto) Baso # (Auto) Seg Neutrophils % Seg Neuts % (Manual) Lymphocytes % (Manual) Nucleated RBC % Seg Neutrophils # Seg Neutrophils # Man Lymphocytes # (Manual) Monocytes # (Manual) Eosinophils # (Manual) PT INR APTT D-Dimer Heparin Anti-Xa Level ABG pH POC ABG pCO2 POC ABG pO2 ABG pO2 ABG HCO3 ABG O2 Saturation ABG Base Excess ABG Hemoglobin ABG Oxyhemoglobin ABG Sodium ABG Potassium ABG Chloride ABG Glucose Oxyhemoglobin Carboxyhemoglobin Sodium Potassium 2.9 L* Chloride 96.5 L Carbon Dioxide 39 H BUN Creatinine 0.3 L Glucose 105 H POC Glucose 152 H 144 H Lactic Acid Calcium Phosphorus Magnesium Ferritin Total Bilirubin Direct Bilirubin AST ALT 118 H Alkaline Phosphatase Lactate Dehydrogenase C-Reactive Protein Total Protein Albumin 3.3 L Triglycerides Lipase Arterial Blood Glucose Arterial Blood Ionized Calcium Urine WBC (Auto) Coronavirus (PCR) SARS-CoV-2 IgG Ab Crossmatch 08/02/20 08/02/20 08/02/20 13:55 16:23 17:00 WBC RBC Hgb Hct MCV MCH MCHC RDW Lymph % (Auto) [place] % (Auto) Lymph # (Auto) [place] # (Auto) Baso # (Auto) Seg Neutrophils % Seg Neuts % (Manual) Lymphocytes % (Manual) Nucleated RBC % Seg Neutrophils # Seg Neutrophils # Man Lymphocytes # (Manual) Monocytes # (Manual) Eosinophils # (Manual) PT INR APTT D-Dimer Heparin Anti-Xa Level ABG pH POC ABG pCO2 POC ABG pO2 ABG pO2 ABG HCO3 ABG O2 Saturation ABG Base Excess ABG Hemoglobin ABG Oxyhemoglobin ABG Sodium ABG Potassium ABG Chloride ABG Glucose Oxyhemoglobin Carboxyhemoglobin Sodium Potassium 3.0 L Chloride Carbon Dioxide BUN Creatinine Glucose POC Glucose 142 H 193 H Lactic Acid Calcium Phosphorus Magnesium Ferritin Total Bilirubin Direct Bilirubin AST ALT Alkaline Phosphatase Lactate Dehydrogenase C-Reactive Protein Total Protein Albumin Triglycerides Lipase Arterial Blood Glucose Arterial Blood Ionized Calcium Urine WBC (Auto) Coronavirus (PCR) SARS-CoV-2 IgG Ab Crossmatch 08/02/20 08/03/20 08/03/20 21:21 05:18 08:05 WBC RBC Hgb Hct MCV MCH MCHC RDW Lymph % (Auto) [place] % (Auto) Lymph # (Auto) [place] # (Auto) Baso # (Auto) Seg Neutrophils % Seg Neuts % (Manual) Lymphocytes % (Manual) Nucleated RBC % Seg Neutrophils # Seg Neutrophils # Man Lymphocytes # (Manual) Monocytes # (Manual) Eosinophils # (Manual) PT INR APTT D-Dimer Heparin Anti-Xa Level ABG pH POC ABG pCO2 POC ABG pO2 ABG pO2 ABG HCO3 ABG O2 Saturation ABG Base Excess ABG Hemoglobin ABG Oxyhemoglobin ABG Sodium ABG Potassium ABG Chloride ABG Glucose Oxyhemoglobin Carboxyhemoglobin Sodium Potassium Chloride Carbon Dioxide 32 H D BUN Creatinine 0.4 L Glucose POC Glucose 161 H 107 H Lactic Acid Calcium Phosphorus Magnesium Ferritin Total Bilirubin Direct Bilirubin AST ALT Alkaline Phosphatase Lactate Dehydrogenase C-Reactive Protein Total Protein Albumin Triglycerides Lipase Arterial Blood Glucose Arterial Blood Ionized Calcium Urine WBC (Auto) Coronavirus (PCR) SARS-CoV-2 IgG Ab Crossmatch 08/03/20 08/03/20 08/04/20 12:03 20:20 07:46 WBC RBC Hgb Hct MCV MCH MCHC RDW Lymph % (Auto) [place] % (Auto) Lymph # (Auto) [place] # (Auto) Baso # (Auto) Seg Neutrophils % Seg Neuts % (Manual) Lymphocytes % (Manual) Nucleated RBC % Seg Neutrophils # Seg Neutrophils # Man Lymphocytes # (Manual) Monocytes # (Manual) Eosinophils # (Manual) PT INR APTT D-Dimer Heparin Anti-Xa Level ABG pH POC ABG pCO2 POC ABG pO2 ABG pO2 ABG HCO3 ABG O2 Saturation ABG Base Excess ABG Hemoglobin ABG Oxyhemoglobin ABG Sodium ABG Potassium ABG Chloride ABG Glucose Oxyhemoglobin Carboxyhemoglobin Sodium Potassium Chloride Carbon Dioxide BUN Creatinine Glucose POC Glucose 135 H 167 H 109 H Lactic Acid Calcium Phosphorus Magnesium Ferritin Total Bilirubin Direct Bilirubin AST ALT Alkaline Phosphatase Lactate Dehydrogenase C-Reactive Protein Total Protein Albumin Triglycerides Lipase Arterial Blood Glucose Arterial Blood Ionized Calcium Urine WBC (Auto) Coronavirus (PCR) SARS-CoV-2 IgG Ab Crossmatch 08/04/20 08/04/20 08/04/20 11:54 16:48 20:39 WBC RBC Hgb Hct MCV MCH MCHC RDW Lymph % (Auto) [place] % (Auto) Lymph # (Auto) [place] # (Auto) Baso # (Auto) Seg Neutrophils % Seg Neuts % (Manual) Lymphocytes % (Manual) Nucleated RBC % Seg Neutrophils # Seg Neutrophils # Man Lymphocytes # (Manual) Monocytes # (Manual) Eosinophils # (Manual) PT INR APTT D-Dimer Heparin Anti-Xa Level ABG pH POC ABG pCO2 POC ABG pO2 ABG pO2 ABG HCO3 ABG O2 Saturation ABG Base Excess ABG Hemoglobin ABG Oxyhemoglobin ABG Sodium ABG Potassium ABG Chloride ABG Glucose Oxyhemoglobin Carboxyhemoglobin Sodium Potassium Chloride Carbon Dioxide BUN Creatinine Glucose POC Glucose 133 H 150 H 139 H Lactic Acid Calcium Phosphorus Magnesium Ferritin Total Bilirubin Direct Bilirubin AST ALT Alkaline Phosphatase Lactate Dehydrogenase C-Reactive Protein Total Protein Albumin Triglycerides Lipase Arterial Blood Glucose Arterial Blood Ionized Calcium Urine WBC (Auto) Coronavirus (PCR) SARS-CoV-2 IgG Ab Crossmatch 08/05/20 08/05/20 08/05/20 07:45 11:36 16:09 WBC RBC Hgb Hct MCV MCH MCHC RDW Lymph % (Auto) [place] % (Auto) Lymph # (Auto) [place] # (Auto) Baso # (Auto) Seg Neutrophils % Seg Neuts % (Manual) Lymphocytes % (Manual) Nucleated RBC % Seg Neutrophils # Seg Neutrophils # Man Lymphocytes # (Manual) Monocytes # (Manual) Eosinophils # (Manual) PT INR APTT D-Dimer Heparin Anti-Xa Level ABG pH POC ABG pCO2 POC ABG pO2 ABG pO2 ABG HCO3 ABG O2 Saturation ABG Base Excess ABG Hemoglobin ABG Oxyhemoglobin ABG Sodium ABG Potassium ABG Chloride ABG Glucose Oxyhemoglobin Carboxyhemoglobin Sodium Potassium Chloride Carbon Dioxide BUN Creatinine Glucose POC Glucose 115 H 112 H 118 H Lactic Acid Calcium Phosphorus Magnesium Ferritin Total Bilirubin Direct Bilirubin AST ALT Alkaline Phosphatase Lactate Dehydrogenase C-Reactive Protein Total Protein Albumin Triglycerides Lipase Arterial Blood Glucose Arterial Blood Ionized Calcium Urine WBC (Auto) Coronavirus (PCR) SARS-CoV-2 IgG Ab Crossmatch 08/05/20 08/06/20 08/06/20 22:06 11:09 16:51 WBC RBC Hgb Hct MCV MCH MCHC RDW Lymph % (Auto) [place] % (Auto) Lymph # (Auto) [place] # (Auto) Baso # (Auto) Seg Neutrophils % Seg Neuts % (Manual) Lymphocytes % (Manual) Nucleated RBC % Seg Neutrophils # Seg Neutrophils # Man Lymphocytes # (Manual) Monocytes # (Manual) Eosinophils # (Manual) PT INR APTT D-Dimer Heparin Anti-Xa Level ABG pH POC ABG pCO2 POC ABG pO2 ABG pO2 ABG HCO3 ABG O2 Saturation ABG Base Excess ABG Hemoglobin ABG Oxyhemoglobin ABG Sodium ABG Potassium ABG Chloride ABG Glucose Oxyhemoglobin Carboxyhemoglobin Sodium Potassium Chloride Carbon Dioxide BUN Creatinine Glucose POC Glucose 120 H 125 H 135 H Lactic Acid Calcium Phosphorus Magnesium Ferritin Total Bilirubin Direct Bilirubin AST ALT Alkaline Phosphatase Lactate Dehydrogenase C-Reactive Protein Total Protein Albumin Triglycerides Lipase Arterial Blood Glucose Arterial Blood Ionized Calcium Urine WBC (Auto) Coronavirus (PCR) SARS-CoV-2 IgG Ab Crossmatch 08/06/20 08/07/20 08/07/20 20:21 08:15 12:46 WBC RBC Hgb Hct MCV MCH MCHC RDW Lymph % (Auto) [place] % (Auto) Lymph # (Auto) [place] # (Auto) Baso # (Auto) Seg Neutrophils % Seg Neuts % (Manual) Lymphocytes % (Manual) Nucleated RBC % Seg Neutrophils # Seg Neutrophils # Man Lymphocytes # (Manual) Monocytes # (Manual) Eosinophils # (Manual) PT INR APTT D-Dimer Heparin Anti-Xa Level ABG pH POC ABG pCO2 POC ABG pO2 ABG pO2 ABG HCO3 ABG O2 Saturation ABG Base Excess ABG Hemoglobin ABG Oxyhemoglobin ABG Sodium ABG Potassium ABG Chloride ABG Glucose Oxyhemoglobin Carboxyhemoglobin Sodium Potassium Chloride Carbon Dioxide BUN Creatinine Glucose POC Glucose 127 H 120 H 113 H Lactic Acid Calcium Phosphorus Magnesium Ferritin Total Bilirubin Direct Bilirubin AST ALT Alkaline Phosphatase Lactate Dehydrogenase C-Reactive Protein Total Protein Albumin Triglycerides Lipase Arterial Blood Glucose Arterial Blood Ionized Calcium Urine WBC (Auto) Coronavirus (PCR) SARS-CoV-2 IgG Ab Crossmatch 08/07/20 08/07/20 08/08/20 16:38 21:30 07:40 WBC RBC Hgb Hct MCV MCH MCHC RDW Lymph % (Auto) [place] % (Auto) Lymph # (Auto) [place] # (Auto) Baso # (Auto) Seg Neutrophils % Seg Neuts % (Manual) Lymphocytes % (Manual) Nucleated RBC % Seg Neutrophils # Seg Neutrophils # Man Lymphocytes # (Manual) Monocytes # (Manual) Eosinophils # (Manual) PT INR APTT D-Dimer Heparin Anti-Xa Level ABG pH POC ABG pCO2 POC ABG pO2 ABG pO2 ABG HCO3 ABG O2 Saturation ABG Base Excess ABG Hemoglobin ABG Oxyhemoglobin ABG Sodium ABG Potassium ABG Chloride ABG Glucose Oxyhemoglobin Carboxyhemoglobin Sodium Potassium Chloride Carbon Dioxide BUN Creatinine Glucose POC Glucose 119 H 129 H 115 H Lactic Acid Calcium Phosphorus Magnesium Ferritin Total Bilirubin Direct Bilirubin AST ALT Alkaline Phosphatase Lactate Dehydrogenase C-Reactive Protein Total Protein Albumin Triglycerides Lipase Arterial Blood Glucose Arterial Blood Ionized Calcium Urine WBC (Auto) Coronavirus (PCR) SARS-CoV-2 IgG Ab Crossmatch 08/08/20 08/08/20 08/08/20 11:31 16:03 21:17 WBC RBC Hgb Hct MCV MCH MCHC RDW Lymph % (Auto) [place] % (Auto) Lymph # (Auto) [place] # (Auto) Baso # (Auto) Seg Neutrophils % Seg Neuts % (Manual) Lymphocytes % (Manual) Nucleated RBC % Seg Neutrophils # Seg Neutrophils # Man Lymphocytes # (Manual) Monocytes # (Manual) Eosinophils # (Manual) PT INR APTT D-Dimer Heparin Anti-Xa Level ABG pH POC ABG pCO2 POC ABG pO2 ABG pO2 ABG HCO3 ABG O2 Saturation ABG Base Excess ABG Hemoglobin ABG Oxyhemoglobin ABG Sodium ABG Potassium ABG Chloride ABG Glucose Oxyhemoglobin Carboxyhemoglobin Sodium Potassium Chloride Carbon Dioxide BUN Creatinine Glucose POC Glucose 117 H 113 H 132 H Lactic Acid Calcium Phosphorus Magnesium Ferritin Total Bilirubin Direct Bilirubin AST ALT Alkaline Phosphatase Lactate Dehydrogenase C-Reactive Protein Total Protein Albumin Triglycerides Lipase Arterial Blood Glucose Arterial Blood Ionized Calcium Urine WBC (Auto) Coronavirus (PCR) SARS-CoV-2 IgG Ab Crossmatch 08/09/20 08/09/20 08/09/20 11:53 16:53 21:39 WBC RBC Hgb Hct MCV MCH MCHC RDW Lymph % (Auto) [place] % (Auto) Lymph # (Auto) [place] # (Auto) Baso # (Auto) Seg Neutrophils % Seg Neuts % (Manual) Lymphocytes % (Manual) Nucleated RBC % Seg Neutrophils # Seg Neutrophils # Man Lymphocytes # (Manual) Monocytes # (Manual) Eosinophils # (Manual) PT INR APTT D-Dimer Heparin Anti-Xa Level ABG pH POC ABG pCO2 POC ABG pO2 ABG pO2 ABG HCO3 ABG O2 Saturation ABG Base Excess ABG Hemoglobin ABG Oxyhemoglobin ABG Sodium ABG Potassium ABG Chloride ABG Glucose Oxyhemoglobin Carboxyhemoglobin Sodium Potassium Chloride Carbon Dioxide BUN Creatinine Glucose POC Glucose 131 H 153 H 114 H Lactic Acid Calcium Phosphorus Magnesium Ferritin Total Bilirubin Direct Bilirubin AST ALT Alkaline Phosphatase Lactate Dehydrogenase C-Reactive Protein Total Protein Albumin Triglycerides Lipase Arterial Blood Glucose Arterial Blood Ionized Calcium Urine WBC (Auto) Coronavirus (PCR) SARS-CoV-2 IgG Ab Crossmatch 08/10/20 08/10/20 08/10/20 07:58 11:57 16:53 WBC RBC Hgb Hct MCV MCH MCHC RDW Lymph % (Auto) [place] % (Auto) Lymph # (Auto) [place] # (Auto) Baso # (Auto) Seg Neutrophils % Seg Neuts % (Manual) Lymphocytes % (Manual) Nucleated RBC % Seg Neutrophils # Seg Neutrophils # Man Lymphocytes # (Manual) Monocytes # (Manual) Eosinophils # (Manual) PT INR APTT D-Dimer Heparin Anti-Xa Level ABG pH POC ABG pCO2 POC ABG pO2 ABG pO2 ABG HCO3 ABG O2 Saturation ABG Base Excess ABG Hemoglobin ABG Oxyhemoglobin ABG Sodium ABG Potassium ABG Chloride ABG Glucose Oxyhemoglobin Carboxyhemoglobin Sodium Potassium Chloride Carbon Dioxide BUN Creatinine Glucose POC Glucose 106 H 139 H 140 H Lactic Acid Calcium Phosphorus Magnesium Ferritin Total Bilirubin Direct Bilirubin AST ALT Alkaline Phosphatase Lactate Dehydrogenase C-Reactive Protein Total Protein Albumin Triglycerides Lipase Arterial Blood Glucose Arterial Blood Ionized Calcium Urine WBC (Auto) Coronavirus (PCR) SARS-CoV-2 IgG Ab Crossmatch 08/10/20 08/11/20 08/11/20 20:45 12:07 15:58 WBC RBC Hgb Hct MCV MCH MCHC RDW Lymph % (Auto) [place] % (Auto) Lymph # (Auto) [place] # (Auto) Baso # (Auto) Seg Neutrophils % Seg Neuts % (Manual) Lymphocytes % (Manual) Nucleated RBC % Seg Neutrophils # Seg Neutrophils # Man Lymphocytes # (Manual) Monocytes # (Manual) Eosinophils # (Manual) PT INR APTT D-Dimer Heparin Anti-Xa Level ABG pH POC ABG pCO2 POC ABG pO2 ABG pO2 ABG HCO3 ABG O2 Saturation ABG Base Excess ABG Hemoglobin ABG Oxyhemoglobin ABG Sodium ABG Potassium ABG Chloride ABG Glucose Oxyhemoglobin Carboxyhemoglobin Sodium Potassium Chloride Carbon Dioxide BUN Creatinine Glucose POC Glucose 161 H 114 H 133 H Lactic Acid Calcium Phosphorus Magnesium Ferritin Total Bilirubin Direct Bilirubin AST ALT Alkaline Phosphatase Lactate Dehydrogenase C-Reactive Protein Total Protein Albumin Triglycerides Lipase Arterial Blood Glucose Arterial Blood Ionized Calcium Urine WBC (Auto) Coronavirus (PCR) SARS-CoV-2 IgG Ab Crossmatch 08/11/20 08/11/20 08/12/20 18:43 20:45 07:46 WBC RBC Hgb Hct MCV MCH MCHC RDW Lymph % (Auto) [place] % (Auto) Lymph # (Auto) [place] # (Auto) Baso # (Auto) Seg Neutrophils % Seg Neuts % (Manual) Lymphocytes % (Manual) Nucleated RBC % Seg Neutrophils # Seg Neutrophils # Man Lymphocytes # (Manual) Monocytes # (Manual) Eosinophils # (Manual) PT INR APTT D-Dimer Heparin Anti-Xa Level ABG pH POC ABG pCO2 51.0 H POC ABG pO2 ABG pO2 ABG HCO3 ABG O2 Saturation ABG Base Excess ABG Hemoglobin ABG Oxyhemoglobin ABG Sodium ABG Potassium ABG Chloride ABG Glucose 149 H Oxyhemoglobin Carboxyhemoglobin Sodium Potassium Chloride Carbon Dioxide BUN Creatinine Glucose POC Glucose 111 H 112 H Lactic Acid Calcium Phosphorus Magnesium Ferritin Total Bilirubin Direct Bilirubin AST ALT Alkaline Phosphatase Lactate Dehydrogenase C-Reactive Protein Total Protein Albumin Triglycerides Lipase Arterial Blood Glucose 149 H Arterial Blood Ionized Calcium Urine WBC (Auto) Coronavirus (PCR) SARS-CoV-2 IgG Ab Crossmatch 08/12/20 08/12/20 08/13/20 18:34 21:09 16:10 WBC RBC Hgb Hct MCV MCH MCHC RDW Lymph % (Auto) [place] % (Auto) Lymph # (Auto) [place] # (Auto) Baso # (Auto) Seg Neutrophils % Seg Neuts % (Manual) Lymphocytes % (Manual) Nucleated RBC % Seg Neutrophils # Seg Neutrophils # Man Lymphocytes # (Manual) Monocytes # (Manual) Eosinophils # (Manual) PT INR APTT D-Dimer Heparin Anti-Xa Level ABG pH POC ABG pCO2 POC ABG pO2 ABG pO2 ABG HCO3 ABG O2 Saturation ABG Base Excess ABG Hemoglobin ABG Oxyhemoglobin ABG Sodium ABG Potassium ABG Chloride ABG Glucose Oxyhemoglobin Carboxyhemoglobin Sodium Potassium Chloride 97.2 L Carbon Dioxide BUN Creatinine 0.5 L Glucose 132 H POC Glucose 120 H 140 H Lactic Acid Calcium Phosphorus Magnesium Ferritin Total Bilirubin Direct Bilirubin AST ALT Alkaline Phosphatase Lactate Dehydrogenase C-Reactive Protein Total Protein Albumin Triglycerides Lipase Arterial Blood Glucose Arterial Blood Ionized Calcium Urine WBC (Auto) Coronavirus (PCR) SARS-CoV-2 IgG Ab Crossmatch 08/13/20 08/14/20 08/14/20 21:16 11:20 16:14 WBC RBC Hgb Hct MCV MCH MCHC RDW Lymph % (Auto) [place] % (Auto) Lymph # (Auto) [place] # (Auto) Baso # (Auto) Seg Neutrophils % Seg Neuts % (Manual) Lymphocytes % (Manual) Nucleated RBC % Seg Neutrophils # Seg Neutrophils # Man Lymphocytes # (Manual) Monocytes # (Manual) Eosinophils # (Manual) PT INR APTT D-Dimer Heparin Anti-Xa Level ABG pH POC ABG pCO2 POC ABG pO2 ABG pO2 ABG HCO3 ABG O2 Saturation ABG Base Excess ABG Hemoglobin ABG Oxyhemoglobin ABG Sodium ABG Potassium ABG Chloride ABG Glucose Oxyhemoglobin Carboxyhemoglobin Sodium Potassium Chloride Carbon Dioxide BUN Creatinine Glucose POC Glucose 163 H 109 H 118 H Lactic Acid Calcium Phosphorus Magnesium Ferritin Total Bilirubin Direct Bilirubin AST ALT Alkaline Phosphatase Lactate Dehydrogenase C-Reactive Protein Total Protein Albumin Triglycerides Lipase Arterial Blood Glucose Arterial Blood Ionized Calcium Urine WBC (Auto) Coronavirus (PCR) SARS-CoV-2 IgG Ab Crossmatch 08/14/20 08/15/20 08/15/20 20:11 11:58 16:14 WBC RBC Hgb Hct MCV MCH MCHC RDW Lymph % (Auto) [place] % (Auto) Lymph # (Auto) [place] # (Auto) Baso # (Auto) Seg Neutrophils % Seg Neuts % (Manual) Lymphocytes % (Manual) Nucleated RBC % Seg Neutrophils # Seg Neutrophils # Man Lymphocytes # (Manual) Monocytes # (Manual) Eosinophils # (Manual) PT INR APTT D-Dimer Heparin Anti-Xa Level ABG pH POC ABG pCO2 POC ABG pO2 ABG pO2 ABG HCO3 ABG O2 Saturation ABG Base Excess ABG Hemoglobin ABG Oxyhemoglobin ABG Sodium ABG Potassium ABG Chloride ABG Glucose Oxyhemoglobin Carboxyhemoglobin Sodium Potassium Chloride Carbon Dioxide BUN Creatinine Glucose POC Glucose 139 H 120 H 118 H Lactic Acid Calcium Phosphorus Magnesium Ferritin Total Bilirubin Direct Bilirubin AST ALT Alkaline Phosphatase Lactate Dehydrogenase C-Reactive Protein Total Protein Albumin Triglycerides Lipase Arterial Blood Glucose Arterial Blood Ionized Calcium Urine WBC (Auto) Coronavirus (PCR) SARS-CoV-2 IgG Ab Crossmatch 08/16/20 08/16/20 08/16/20 12:02 15:14 20:25 WBC RBC Hgb Hct MCV MCH MCHC RDW Lymph % (Auto) [place] % (Auto) Lymph # (Auto) [place] # (Auto) Baso # (Auto) Seg Neutrophils % Seg Neuts % (Manual) Lymphocytes % (Manual) Nucleated RBC % Seg Neutrophils # Seg Neutrophils # Man Lymphocytes # (Manual) Monocytes # (Manual) Eosinophils # (Manual) PT INR APTT D-Dimer Heparin Anti-Xa Level ABG pH POC ABG pCO2 POC ABG pO2 ABG pO2 ABG HCO3 ABG O2 Saturation ABG Base Excess ABG Hemoglobin ABG Oxyhemoglobin ABG Sodium ABG Potassium ABG Chloride ABG Glucose Oxyhemoglobin Carboxyhemoglobin Sodium Potassium Chloride Carbon Dioxide BUN Creatinine Glucose POC Glucose 128 H 143 H 132 H Lactic Acid Calcium Phosphorus Magnesium Ferritin Total Bilirubin Direct Bilirubin AST ALT Alkaline Phosphatase Lactate Dehydrogenase C-Reactive Protein Total Protein Albumin Triglycerides Lipase Arterial Blood Glucose Arterial Blood Ionized Calcium Urine WBC (Auto) Coronavirus (PCR) SARS-CoV-2 IgG Ab Crossmatch 08/17/20 08/17/20 08/17/20 07:34 10:59 16:10 WBC RBC Hgb Hct MCV MCH MCHC RDW Lymph % (Auto) [place] % (Auto) Lymph # (Auto) [place] # (Auto) Baso # (Auto) Seg Neutrophils % Seg Neuts % (Manual) Lymphocytes % (Manual) Nucleated RBC % Seg Neutrophils # Seg Neutrophils # Man Lymphocytes # (Manual) Monocytes # (Manual) Eosinophils # (Manual) PT INR APTT D-Dimer Heparin Anti-Xa Level ABG pH POC ABG pCO2 POC ABG pO2 ABG pO2 ABG HCO3 ABG O2 Saturation ABG Base Excess ABG Hemoglobin ABG Oxyhemoglobin ABG Sodium ABG Potassium ABG Chloride ABG Glucose Oxyhemoglobin Carboxyhemoglobin Sodium Potassium Chloride Carbon Dioxide BUN Creatinine Glucose POC Glucose 113 H 125 H 120 H Lactic Acid Calcium Phosphorus Magnesium Ferritin Total Bilirubin Direct Bilirubin AST ALT Alkaline Phosphatase Lactate Dehydrogenase C-Reactive Protein Total Protein Albumin Triglycerides Lipase Arterial Blood Glucose Arterial Blood Ionized Calcium Urine WBC (Auto) Coronavirus (PCR) SARS-CoV-2 IgG Ab Crossmatch 08/17/20 08/18/20 08/18/20 20:13 11:59 16:35 WBC RBC Hgb Hct MCV MCH MCHC RDW Lymph % (Auto) [place] % (Auto) Lymph # (Auto) [place] # (Auto) Baso # (Auto) Seg Neutrophils % Seg Neuts % (Manual) Lymphocytes % (Manual) Nucleated RBC % Seg Neutrophils # Seg Neutrophils # Man Lymphocytes # (Manual) Monocytes # (Manual) Eosinophils # (Manual) PT INR APTT D-Dimer Heparin Anti-Xa Level ABG pH POC ABG pCO2 POC ABG pO2 ABG pO2 ABG HCO3 ABG O2 Saturation ABG Base Excess ABG Hemoglobin ABG Oxyhemoglobin ABG Sodium ABG Potassium ABG Chloride ABG Glucose Oxyhemoglobin Carboxyhemoglobin Sodium Potassium Chloride Carbon Dioxide BUN Creatinine Glucose POC Glucose 148 H 140 H 126 H Lactic Acid Calcium Phosphorus Magnesium Ferritin Total Bilirubin Direct Bilirubin AST ALT Alkaline Phosphatase Lactate Dehydrogenase C-Reactive Protein Total Protein Albumin Triglycerides Lipase Arterial Blood Glucose Arterial Blood Ionized Calcium Urine WBC (Auto) Coronavirus (PCR) SARS-CoV-2 IgG Ab Crossmatch 08/18/20 08/19/20 08/19/20 21:15 11:43 15:39 WBC RBC Hgb Hct MCV MCH MCHC RDW Lymph % (Auto) [place] % (Auto) Lymph # (Auto) [place] # (Auto) Baso # (Auto) Seg Neutrophils % Seg Neuts % (Manual) Lymphocytes % (Manual) Nucleated RBC % Seg Neutrophils # Seg Neutrophils # Man Lymphocytes # (Manual) Monocytes # (Manual) Eosinophils # (Manual) PT INR APTT D-Dimer Heparin Anti-Xa Level ABG pH POC ABG pCO2 POC ABG pO2 ABG pO2 ABG HCO3 ABG O2 Saturation ABG Base Excess ABG Hemoglobin ABG Oxyhemoglobin ABG Sodium ABG Potassium ABG Chloride ABG Glucose Oxyhemoglobin Carboxyhemoglobin Sodium Potassium Chloride Carbon Dioxide BUN Creatinine Glucose POC Glucose 119 H 109 H 117 H Lactic Acid Calcium Phosphorus Magnesium Ferritin Total Bilirubin Direct Bilirubin AST ALT Alkaline Phosphatase Lactate Dehydrogenase C-Reactive Protein Total Protein Albumin Triglycerides Lipase Arterial Blood Glucose Arterial Blood Ionized Calcium Urine WBC (Auto) Coronavirus (PCR) SARS-CoV-2 IgG Ab Crossmatch 08/20/20 08/20/20 08/20/20 07:46 15:58 20:37 WBC RBC Hgb Hct MCV MCH MCHC RDW Lymph % (Auto) [place] % (Auto) Lymph # (Auto) [place] # (Auto) Baso # (Auto) Seg Neutrophils % Seg Neuts % (Manual) Lymphocytes % (Manual) Nucleated RBC % Seg Neutrophils # Seg Neutrophils # Man Lymphocytes # (Manual) Monocytes # (Manual) Eosinophils # (Manual) PT INR APTT D-Dimer Heparin Anti-Xa Level ABG pH POC ABG pCO2 POC ABG pO2 ABG pO2 ABG HCO3 ABG O2 Saturation ABG Base Excess ABG Hemoglobin ABG Oxyhemoglobin ABG Sodium ABG Potassium ABG Chloride ABG Glucose Oxyhemoglobin Carboxyhemoglobin Sodium Potassium Chloride Carbon Dioxide BUN Creatinine Glucose POC Glucose 106 H 133 H 144 H Lactic Acid Calcium Phosphorus Magnesium Ferritin Total Bilirubin Direct Bilirubin AST ALT Alkaline Phosphatase Lactate Dehydrogenase C-Reactive Protein Total Protein Albumin Triglycerides Lipase Arterial Blood Glucose Arterial Blood Ionized Calcium Urine WBC (Auto) Coronavirus (PCR) SARS-CoV-2 IgG Ab Crossmatch 08/21/20 08/21/20 08/21/20 07:44 11:42 16:43 WBC RBC Hgb Hct MCV MCH MCHC RDW Lymph % (Auto) [place] % (Auto) Lymph # (Auto) [place] # (Auto) Baso # (Auto) Seg Neutrophils % Seg Neuts % (Manual) Lymphocytes % (Manual) Nucleated RBC % Seg Neutrophils # Seg Neutrophils # Man Lymphocytes # (Manual) Monocytes # (Manual) Eosinophils # (Manual) PT INR APTT D-Dimer Heparin Anti-Xa Level ABG pH POC ABG pCO2 POC ABG pO2 ABG pO2 ABG HCO3 ABG O2 Saturation ABG Base Excess ABG Hemoglobin ABG Oxyhemoglobin ABG Sodium ABG Potassium ABG Chloride ABG Glucose Oxyhemoglobin Carboxyhemoglobin Sodium Potassium Chloride Carbon Dioxide BUN Creatinine Glucose POC Glucose 123 H 135 H 128 H Lactic Acid Calcium Phosphorus Magnesium Ferritin Total Bilirubin Direct Bilirubin AST ALT Alkaline Phosphatase Lactate Dehydrogenase C-Reactive Protein Total Protein Albumin Triglycerides Lipase Arterial Blood Glucose Arterial Blood Ionized Calcium Urine WBC (Auto) Coronavirus (PCR) SARS-CoV-2 IgG Ab Crossmatch 08/22/20 08/22/20 08/22/20 05:11 05:11 11:12 WBC RBC Hgb Hct MCV 95 H MCH MCHC RDW 16.4 H Lymph % (Auto) [place] % (Auto) 9.7 H Lymph # (Auto) [place] # (Auto) 1.0 H Baso # (Auto) Seg Neutrophils % Seg Neuts % (Manual) Lymphocytes % (Manual) Nucleated RBC % Seg Neutrophils # Seg Neutrophils # Man Lymphocytes # (Manual) Monocytes # (Manual) Eosinophils # (Manual) PT INR APTT D-Dimer Heparin Anti-Xa Level ABG pH POC ABG pCO2 POC ABG pO2 ABG pO2 ABG HCO3 ABG O2 Saturation ABG Base Excess ABG Hemoglobin ABG Oxyhemoglobin ABG Sodium ABG Potassium ABG Chloride ABG Glucose Oxyhemoglobin Carboxyhemoglobin Sodium Potassium 3.3 L Chloride Carbon Dioxide 31 H BUN Creatinine 0.6 L Glucose POC Glucose 116 H Lactic Acid Calcium Phosphorus 5.10 H Magnesium Ferritin Total Bilirubin Direct Bilirubin AST ALT Alkaline Phosphatase Lactate Dehydrogenase C-Reactive Protein Total Protein Albumin Triglycerides Lipase Arterial Blood Glucose Arterial Blood Ionized Calcium Urine WBC (Auto) Coronavirus (PCR) SARS-CoV-2 IgG Ab Crossmatch 08/22/20 08/22/20 08/23/20 15:43 20:31 11:24 WBC RBC Hgb Hct MCV MCH MCHC RDW Lymph % (Auto) [place] % (Auto) Lymph # (Auto) [place] # (Auto) Baso # (Auto) Seg Neutrophils % Seg Neuts % (Manual) Lymphocytes % (Manual) Nucleated RBC % Seg Neutrophils # Seg Neutrophils # Man Lymphocytes # (Manual) Monocytes # (Manual) Eosinophils # (Manual) PT INR APTT D-Dimer Heparin Anti-Xa Level ABG pH POC ABG pCO2 POC ABG pO2 ABG pO2 ABG HCO3 ABG O2 Saturation ABG Base Excess ABG Hemoglobin ABG Oxyhemoglobin ABG Sodium ABG Potassium ABG Chloride ABG Glucose Oxyhemoglobin Carboxyhemoglobin Sodium Potassium Chloride Carbon Dioxide BUN Creatinine Glucose POC Glucose 118 H 110 H 116 H Lactic Acid Calcium Phosphorus Magnesium Ferritin Total Bilirubin Direct Bilirubin AST ALT Alkaline Phosphatase Lactate Dehydrogenase C-Reactive Protein Total Protein Albumin Triglycerides Lipase Arterial Blood Glucose Arterial Blood Ionized Calcium Urine WBC (Auto) Coronavirus (PCR) SARS-CoV-2 IgG Ab Crossmatch 08/23/20 08/23/20 08/24/20 15:48 21:04 11:05 WBC RBC Hgb Hct MCV MCH MCHC RDW Lymph % (Auto) [place] % (Auto) Lymph # (Auto) [place] # (Auto) Baso # (Auto) Seg Neutrophils % Seg Neuts % (Manual) Lymphocytes % (Manual) Nucleated RBC % Seg Neutrophils # Seg Neutrophils # Man Lymphocytes # (Manual) Monocytes # (Manual) Eosinophils # (Manual) PT INR APTT D-Dimer Heparin Anti-Xa Level ABG pH POC ABG pCO2 POC ABG pO2 ABG pO2 ABG HCO3 ABG O2 Saturation ABG Base Excess ABG Hemoglobin ABG Oxyhemoglobin ABG Sodium ABG Potassium ABG Chloride ABG Glucose Oxyhemoglobin Carboxyhemoglobin Sodium Potassium Chloride Carbon Dioxide BUN Creatinine Glucose POC Glucose 129 H 132 H 154 H Lactic Acid Calcium Phosphorus Magnesium Ferritin Total Bilirubin Direct Bilirubin AST ALT Alkaline Phosphatase Lactate Dehydrogenase C-Reactive Protein Total Protein Albumin Triglycerides Lipase Arterial Blood Glucose Arterial Blood Ionized Calcium Urine WBC (Auto) Coronavirus (PCR) SARS-CoV-2 IgG Ab Crossmatch 08/24/20 08/25/20 08/26/20 21:16 11:10 08:12 WBC RBC Hgb Hct MCV MCH MCHC RDW Lymph % (Auto) [place] % (Auto) Lymph # (Auto) [place] # (Auto) Baso # (Auto) Seg Neutrophils % Seg Neuts % (Manual) Lymphocytes % (Manual) Nucleated RBC % Seg Neutrophils # Seg Neutrophils # Man Lymphocytes # (Manual) Monocytes # (Manual) Eosinophils # (Manual) PT INR APTT D-Dimer Heparin Anti-Xa Level ABG pH POC ABG pCO2 POC ABG pO2 ABG pO2 ABG HCO3 ABG O2 Saturation ABG Base Excess ABG Hemoglobin ABG Oxyhemoglobin ABG Sodium ABG Potassium ABG Chloride ABG Glucose Oxyhemoglobin Carboxyhemoglobin Sodium Potassium Chloride Carbon Dioxide BUN Creatinine Glucose POC Glucose 110 H 125 H 112 H Lactic Acid Calcium Phosphorus Magnesium Ferritin Total Bilirubin Direct Bilirubin AST ALT Alkaline Phosphatase Lactate Dehydrogenase C-Reactive Protein Total Protein Albumin Triglycerides Lipase Arterial Blood Glucose Arterial Blood Ionized Calcium Urine WBC (Auto) Coronavirus (PCR) SARS-CoV-2 IgG Ab Crossmatch 08/26/20 08/27/20 08/27/20 12:20 16:06 21:40 WBC RBC Hgb Hct MCV MCH MCHC RDW Lymph % (Auto) [place] % (Auto) Lymph # (Auto) [place] # (Auto) Baso # (Auto) Seg Neutrophils % Seg Neuts % (Manual) Lymphocytes % (Manual) Nucleated RBC % Seg Neutrophils # Seg Neutrophils # Man Lymphocytes # (Manual) Monocytes # (Manual) Eosinophils # (Manual) PT INR APTT D-Dimer Heparin Anti-Xa Level ABG pH POC ABG pCO2 POC ABG pO2 ABG pO2 ABG HCO3 ABG O2 Saturation ABG Base Excess ABG Hemoglobin ABG Oxyhemoglobin ABG Sodium ABG Potassium ABG Chloride ABG Glucose Oxyhemoglobin Carboxyhemoglobin Sodium Potassium Chloride Carbon Dioxide BUN Creatinine Glucose POC Glucose 132 H 107 H 115 H Lactic Acid Calcium Phosphorus Magnesium Ferritin Total Bilirubin Direct Bilirubin AST ALT Alkaline Phosphatase Lactate Dehydrogenase C-Reactive Protein Total Protein Albumin Triglycerides Lipase Arterial Blood Glucose Arterial Blood Ionized Calcium Urine WBC (Auto) Coronavirus (PCR) SARS-CoV-2 IgG Ab Crossmatch 08/28/20 20:46 WBC RBC Hgb Hct MCV MCH MCHC RDW Lymph % (Auto) [place] % (Auto) Lymph # (Auto) [place] # (Auto) Baso # (Auto) Seg Neutrophils % Seg Neuts % (Manual) Lymphocytes % (Manual) Nucleated RBC % Seg Neutrophils # Seg Neutrophils # Man Lymphocytes # (Manual) Monocytes # (Manual) Eosinophils # (Manual) PT INR APTT D-Dimer Heparin Anti-Xa Level ABG pH POC ABG pCO2 POC ABG pO2 ABG pO2 ABG HCO3 ABG O2 Saturation ABG Base Excess ABG Hemoglobin ABG Oxyhemoglobin ABG Sodium ABG Potassium ABG Chloride ABG Glucose Oxyhemoglobin Carboxyhemoglobin Sodium Potassium Chloride Carbon Dioxide BUN Creatinine Glucose POC Glucose 107 H Lactic Acid Calcium Phosphorus Magnesium Ferritin Total Bilirubin Direct Bilirubin AST ALT Alkaline Phosphatase Lactate Dehydrogenase C-Reactive Protein Total Protein Albumin Triglycerides Lipase Arterial Blood Glucose Arterial Blood Ionized Calcium Urine WBC (Auto) Coronavirus (PCR) SARS-CoV-2 IgG Ab Crossmatch Allied health notes reviewed: nursing
[2020-08-29] MEDS: ENOXAPARIN 40 MG/0.4 ML INJ SUB-Q SCH (22:03)
[2020-08-29] MEDS: ACETAMINOPHEN 325 MG TAB PO PRN (22:03)
--- NOTE | 2020-08-30 08:14 | Progress Note ---
Assessment and Plan Assessment and plan: - Acute hypoxemic respiratory failure; Patient intubated and on vent support weaning protocol - need tach placement --Severe COVID-19 bilateral pneumonia Coronavirus protocol: IV steroid therapy, completed remdesivir, isolation precautions, contact precautions, prone positioning while in bed, pulmonary toilet. ID following SARS CoV-2 IgG positive patient is NOT a candidate for COVID convalescent plasma Covid test came negative on 06/30/20 --Severe sepsis/septic shock, due to COVID 19 PNA cont pressors as needed -- Acute kidney injury (SEN) , likely vasomotor nephropathy Resolved, IV fluids, avoid nephrotoxins --Acute on chronic anemia Guaiac test positive GI evaluation PPIs Continue to monitor -- Elevated liver function tests Suspected secondary to alcoholic liver disease. Supportive care, alcohol cessation, patient counseled. --Colonic pseudoobstruction likely from acute on chronic illness GI evaluation -recommend stool softeners Serial abdominal x-rays Monitor electrolytes and replete --History of alcohol dependence, status post CIWA protocol along with thiamine folic acid and multivitamin --right pneumothorax, s/p right chest tube placed on 06/21/20 Patient will need chest tube until patient is extubated -- DVT prophylaxis On therapeutic Lovenox The high probability of a clinically significant, sudden or life threatening deterioration of the [respiratory] system(s) required my full and direct attention, intervention and personal management. The aggregate critical care time was [31] minutes. This time is in addition to time spent performing reported procedures but includes the following: [x] Data Review and interpretation [x] Patient assessment and monitoring of vital signs [x] Documentation [x] Medication orders and management Brief History: 50 YO Male with Obesity, ETOH Dependence presents to ED for evaluation for shortness of breath, generalized weakness, fatigue, malaise, body aches, decreased exercise tolerance over the past 5 days. EMS was notified and upon arrival the patient was found to be in distress with a pulse oximetry of 76% on room air as well as fever to 103 F. In the ER chest x-ray and was found to have bilateral pneumonia. Patient admitted to medical floor and initiated on pneumonia protocol as well as COVID-19 protocol. Patient reports being diagnosed with coronavirus 2 days ago before admission. 05/10- 05/17: follow inflammatory markers, consulted ID/pulmonary. patient on high flow O2 05/18/20; patient feels slightly better still hypoxic, requiring continuous high flow oxygen and BiPAP Respiratory team trying to wean 05/19/20; patient is severely hypoxemic requiring continuous BiPAP today, complains of generalized weakness Trying to wean off high flow oxygen, patient is in isolation 05/20/2020; patient remains on high flow oxygen/BiPAP/100% nonrebreather. Still is hypoxemic Has sinus tachycardia patient in mild distress Wean off high flow oxygen as tolerated, pulmonary critical following 05/21/20; patient is critically ill, on continuous BiPAP remains hypoxemic in mild distress. Patient has severe Covid Pneumonia with persistent hypoxemia and poor prognosis. 05/22/2020: Patient was intubated last night because of persistent hypoxemia. 05/23-06/15: Remains on ventilatory support, unable to wean off from the vent. 06/16/2020. Patient currently on mechanical ventilation with AC mode rate 30, tidal volume 500, FiO2 70% and PEEP of 16. Continue anticoagulation with Lovenox 110 milligrams subcu every 12 hours. Wean sedation of fentanyl/Versed as needed. Currently with IV steroids of Solu-Medrol 40 mg IV every 12 hours. Patient will likely need tracheostomy per pulmonary recommendations. Continue pressors to maintain MAP > 65. 06/17/2020. Patient currently on mechanical ventilation with AC mode rate 30, tidal volume 500, FiO2 65% and PEEP of 16. Continue anticoagulation with Lovenox 110 milligrams subcu every 12 hours. Wean sedation of fentanyl/Versed as needed. Currently with IV steroids of Solu-Medrol 40 mg IV every 12 hours. Patient will likely need tracheostomy per pulmonary recommendations. 06/18/2020. Patient currently on mechanical ventilation with AC mode rate 30, tidal volume 500, FiO2 70% and PEEP of 16. Continue Lovenox for anticoagulation and fentanyl/Versed for sedation. Wean steroids per pulmonary. CIWA protocol initiated for history of EtOH dependence 06/19/2020. Patient currently on mechanical ventilation with AC mode rate 30, tidal volume 500, FiO2 60% and PEEP of 16. Wean FiO2 as tolerated per protocol. Continue Lovenox for anticoagulation and fentanyl/Versed for sedation. Wean steroids per pulmonary. CIWA protocol initiated for history of EtOH dependence 06/20/2020. Patient currently on mechanical ventilation with AC mode rate 30, tidal volume 500, FiO2 60% and PEEP of 16. Wean FiO2 as tolerated, SBT per protocol. Continue Lovenox for anticoagulation and fentanyl/Versed for sedation. Wean steroids per pulmonary. Continue pressors to maintain MAP > 65 mmHg. Patient remains on ETT. Consider tracheostomy placement once oxygenation is better per pulmonary. CIWA protocol initiated for history of EtOH dependence. 06/21/2020. Patient with a small apical pneumothorax discovered yesterday. General surgery consulted and consider placing chest tube. Follow-up serial chest x-ray patient currently on mechanical ventilation with AC mode rate 30, tidal volume 500, FiO2 60% and PEEP of 16. Wean FiO2 as tolerated, SBT per protocol. Continue Lovenox for anticoagulation and fentanyl/Versed for sedation. Wean steroids per pulmonary. Continue pressors to maintain MAP > 65 mmHg. Patient remains on ETT. Consider tracheostomy placement once oxygenation is better per pulmonary. CIWA protocol initiated for history of EtOH dependence. 06/22. Status post right chest tube placement yesterday. Remains mechanically ventilated on pressors. Examination today shows slightly distended abdomen. KUB ordered. Awaiting stool guaiac. Plan to get a GI evaluation. 06/23. Has colonic distention on the x-ray. Discussed with GI-advised stool softeners for now and close monitoring. No indication for colonic decompression at this time. Guaiac test is positive. No emergent indication for endoscopy at this point as per GI. Continue to monitor hemoglobin. 06/24. Remains intubated. On pressors. GI following for positive guaiac stool and anemia, and colonic distention. 06/25. Repeat abdominal xray ordered. Remains on mechanical ventilation. 06/26. Abdominal xray - resolved colonic distension. Mechanically ventilated. 06/27. Plan for trach and PEG. 06/28: Awaiting trach and Peg. Some Bm REPORTED, will continue to monitor 06/29: Resume care, patient remains on ventilator support, waiting on trach and PEG placement. BM reported by the RN, continue to monitor. 06/30: Unable to wean off from vent, patient will need trach and PEG. Continue supportive care, tolerating tube feed. Monitor CBC and BMP 07/01: Continue mechanical ventilation, tube feeding as tolerated. Sedation as needed per mechanical ventilation protocol. Waiting on trach and PEG placement. 07/02: Continue current management, tube feeding, monitor CBC and BMP. Need tra ch and PEG-waiting on scheduling. Pulmonary critical care following. 07/03: wean off vent as tolerated. follow clinically. need trach and PEG 07/04: unable to wean. CT head ordered to assess for any changes but too unstable to do the test. need trach and PEG. 07/05: plan for trach/peg - GS following. off pressor - on midodrine. renal function stable. intubated, but alert and can follow minor commend. discussed with daughter by phone. 07/06/2020; Dr. Márquez discussed with patient's daughter about trach but the daughter needs time to think about it. Patient was intubated and alert, FiO2 40 %. 07/07/2020; patient was intubated and alert, FiO2 40%. Patient was diaphoretic, tachycardic, and EKG was done which was abnormal for me. I called streetcar repairer helper Dr Louis saw the EKG and said it is normal EKG, and the findings are abnormal. 07/08/2020; no significant change, patient is intubated and alert. 08/08/2020; patient is stable for discharge to inpatient rehab unit, pending insurance approval 08/09/2020; disease case manager rn reports that insurance has not approved inpatient rehab placement for this patient Will evaluate for home oxygen, set up home oxygen if eligible, and plan discharge home with home health when patient is hemodynamically stable 08/10/2020; patient continues to have persistent tachycardia, and persistent hypoxia requiring 4 L of nasal cannula oxygen As well as intermittent BiPAP, continue current management 08/11/2020; patient continues to require oxygen and intermittent BiPAP, awaiting IRU placement Versus home with home health and home oxygen, DC planning per case management 08/12/2020; awaiting IRU placement versus home with home health on home oxygen 08/13/2020 through 08/14/2020 Patient awaiting transfer placement 08/14/2020 through 08/16/2020 Patient waiting for rehab placement Discussed with case management today again 08/28/2020; patient was alert and oriented, he said he has generalized weakness, but able to stand. He is on 3 L of oxygen and doing well. Pending insurance authorization to rehab placement. Case management to following. 08/29/2020; patient was alert and oriented, he said he has generalized weakness, but able to stand. He is on 3 L of oxygen and doing well. Pending insurance authorization to rehab placement. Case management to following. 08/30/2020; patient is doing well on 2 L of oxygen. Pending rehab placement. Case management is following. History Interval history: Patient was seen and evaluated this morning Patient was alert and oriented Patient is on 3 L of intranasal oxygen Hospitalist Physical - Physical exam Narrative exam: Not in cardiopulmonary distress. On 3 L of oxygen The patient is obese. Vital signs as documented. Head exam is unremarkable. No scleral icterus . Neck is without jugular venous distension, thyromegaly, or carotid bruits. Lungs are clear to auscultation. Cardiac exam reveals regular rate and Rhythm. Abdominal exam reveals normal bowel sounds, nontender, no organomegaly. Extremities are nonedematous and both femoral and pedal pulses are normal. HOSPITALITY ASSOCIATE: Alert and oriented 3. No focal weakness. - Constitutional Vitals: Temp Pulse Resp BP Pulse Ox 98.7 F 89 16 102/69 98 08/30/20 03:44 08/30/20 03:44 08/30/20 03:44 08/30/20 03:44 08/30/20 03:44 General appearance: Present: no acute distress, well-nourished HEART Score - HEART Score Troponin: Troponin T 0.015 ng/mL (0.00-0.029) 07/07/20 10:00 Results - Labs CBC & Chem 7: 08/22/20 05:11 08/23/20 04:39 Labs: Laboratory Last Values WBC 10.6 K/mm3 (4.5-11.0) 08/22/20 05:11 RBC 4.13 M/mm3 (3.65-5.03) 08/22/20 05:11 Hgb 12.9 gm/dl (11.8-15.2) 08/22/20 05:11 Hct 39.1 % (35.5-45.6) 08/22/20 05:11 MCV 95 fl (84-94) H 08/22/20 05:11 MCH 31 pg (28-32) 08/22/20 05:11 MCHC 33 % (32-34) 08/22/20 05:11 RDW 16.4 % (13.2-15.2) H 08/22/20 05:11 Plt Count 331 K/mm3 (140-440) 08/22/20 05:11 Lymph % (Auto) 18.6 % (13.4-35.0) 08/22/20 05:11 [place] % (Auto) 9.7 % (0.0-7.3) H 08/22/20 05:11 Eos % (Auto) 3.4 % (0.0-4.3) 08/22/20 05:11 Baso % (Auto) 0.5 % (0.0-1.8) 08/22/20 05:11 Lymph # (Auto) 2.0 K/mm3 (1.2-5.4) 08/22/20 05:11 [place] # (Auto) 1.0 K/mm3 (0.0-0.8) H 08/22/20 05:11 Eos # (Auto) 0.4 K/mm3 (0.0-0.4) 08/22/20 05:11 Baso # (Auto) 0.0 K/mm3 (0.0-0.1) 08/22/20 05:11 Add Manual Diff Complete 07/13/20 08:31 Total Counted 100 07/13/20 08:31 Seg Neutrophils % 67.8 % (40.0-70.0) 08/22/20 05:11 Seg Neuts % (Manual) 96.0 % (40.0-70.0) H 07/13/20 08:31 Band Neutrophils % 0 % 07/13/20 08:31 Lymphocytes % (Manual) 2.0 % (13.4-35.0) L 07/13/20 08:31 Reactive Lymphs % (Man) 0 % 07/13/20 08:31 Monocytes % (Manual) 2.0 % (0.0-7.3) 07/13/20 08:31 Eosinophils % (Manual) 0 % (0.0-4.3) 07/13/20 08:31 Basophils % (Manual) 0 % (0.0-1.8) 07/13/20 08:31 Metamyelocytes % 0 % 07/13/20 08:31 Myelocytes % 0 % 07/13/20 08:31 Promyelocytes % 0 % 07/13/20 08:31 Blast Cells % 0 % 07/13/20 08:31 Nucleated RBC % Not Reportable 07/13/20 08:31 Seg Neutrophils # 7.2 K/mm3 (1.8-7.7) 08/22/20 05:11 Seg Neutrophils # Man 20.4 K/mm3 (1.8-7.7) H 07/13/20 08:31 Band Neutrophils # 0.0 K/mm3 07/13/20 08:31 Lymphocytes # (Manual) 0.4 K/mm3 (1.2-5.4) L 07/13/20 08:31 Abs React Lymphs (Man) 0.0 K/mm3 07/13/20 08:31 Monocytes # (Manual) 0.4 K/mm3 (0.0-0.8) 07/13/20 08:31 Eosinophils # (Manual) 0.0 K/mm3 (0.0-0.4) 07/13/20 08:31 Basophils # (Manual) 0.0 K/mm3 (0.0-0.1) 07/13/20 08:31 Metamyelocytes # 0.0 K/mm3 07/13/20 08:31 Myelocytes # 0.0 K/mm3 07/13/20 08:31 Promyelocytes # 0.0 K/mm3 07/13/20 08:31 Blast Cells # 0.0 K/mm3 07/13/20 08:31 WBC Morphology Not Reportable 07/13/20 08:31 Hypersegmented Neuts Not Reportable 07/13/20 08:31 Hyposegmented Neuts Not Reportable 07/13/20 08:31 Hypogranular Neuts Not Reportable 07/13/20 08:31 Smudge Cells Not Reportable 07/13/20 08:31 Toxic Granulation Not Reportable 07/13/20 08:31 Toxic Vacuolation Not Reportable 07/13/20 08:31 Dohle Bodies Not Reportable 07/13/20 08:31 Pelger-Huet Anomaly Not Reportable 07/13/20 08:31 Jason Rods Not Reportable 07/13/20 08:31 Platelet Estimate Consistent w auto 07/13/20 08:31 Clumped Platelets Not Reportable 07/13/20 08:31 Plt Clumps, EDTA Not Reportable 07/13/20 08:31 Large Platelets Not Reportable 07/13/20 08:31 Giant Platelets Not Reportable 07/13/20 08:31 Platelet Satelliting Not Reportable 07/13/20 08:31 Plt Morphology Comment Not Reportable 07/13/20 08:31 RBC Morphology Not Reportable 07/13/20 08:31 Dimorphic RBCs Not Reportable 07/13/20 08:31 Polychromasia Not Reportable 07/13/20 08:31 Hypochromasia Not Reportable 07/13/20 08:31 Poikilocytosis Not Reportable 07/13/20 08:31 Anisocytosis Not Reportable 07/13/20 08:31 Microcytosis Not Reportable 07/13/20 08:31 Macrocytosis Not Reportable 07/13/20 08:31 Spherocytes Not Reportable 07/13/20 08:31 Pappenheimer Bodies Not Reportable 07/13/20 08:31 Sickle Cells Not Reportable 07/13/20 08:31 Target Cells Not Reportable 07/13/20 08:31 Tear Drop Cells Not Reportable 07/13/20 08:31 Ovalocytes Not Reportable 07/13/20 08:31 Stomatocytes Few 07/13/20 08:31 Helmet Cells Not Reportable 07/13/20 08:31 Sinclair-Gowen Bodies Not Reportable 07/13/20 08:31 [place] Rings Not Reportable 07/13/20 08:31 Marble Cells Not Reportable 07/13/20 08:31 Bite Cells Not Reportable 07/13/20 08:31 Crenated Cell Not Reportable 07/13/20 08:31 Elliptocytes Not Reportable 07/13/20 08:31 Acanthocytes (Spur) Not Reportable 07/13/20 08:31 Rouleaux Not Reportable 07/13/20 08:31 Hemoglobin C Crystals Not Reportable 07/13/20 08:31 Schistocytes Not Reportable 07/13/20 08:31 Malaria parasites Not Reportable 07/13/20 08:31 Josue Bodies Not Reportable 07/13/20 08:31 Hem Pathologist Commnt No 07/13/20 08:31 PT 11.8 Sec. (12.2-14.9) L 06/22/20 14:29 INR 0.88 (0.87-1.13) 06/22/20 14:29 APTT 23.5 Sec. (24.2-36.6) L 06/22/20 14:29 D-Dimer 1887.82 ng/mlDDU (0-234) H 05/20/20 08:16 Heparin Anti-Xa Level 0.37 U.I./ml (0.3-0.7) 07/02/20 16:08 ABG pH 7.437 (7.320-7.450) 08/11/20 18:43 POC ABG pCO2 51.0 mmHg (32.0-48.0) H 08/11/20 18:43 ABG pCO2 53.1 mm Hg 07/08/20 Unknown POC ABG pO2 84.9 mmHg (83-108) 08/11/20 18:43 ABG pO2 75.3 mm Hg (80.0-90.0) L 07/08/20 Unknown POC ABG HCO3 33.6 08/11/20 18:43 ABG HCO3 34.3 mmol/L (20.0-26.0) H 07/08/20 Unknown ABG O2 Saturation 96.5 % (95.0-99.0) 07/08/20 Unknown ABG O2 Content 13.5 (0.0-44) 07/08/20 Unknown POC ABG Base Excess 7.9 08/11/20 18:43 ABG Base Excess 8.7 mmol/L (-2.0-3.0) H 07/08/20 Unknown ABG Hemoglobin 13.8 (12.0-17.5) 08/11/20 18:43 ABG Oxyhemoglobin 94.6 (94-98) 08/11/20 18:43 ABG Carboxyhemoglobin 2.4 % (0.0-5.0) 07/08/20 Unknown ABG Methemoglobin 0.3 (0.0-1.5) 08/11/20 18:43 ABG Sodium 138.0 mmol/L (136.0-145.0) 08/11/20 18:43 ABG Potassium 3.4 mmol/L (3.40-4.50) 08/11/20 18:43 ABG Chloride 99.0 mmol/L (98-107) 08/11/20 18:43 ABG Glucose 149 mg/dL (65-95) H 08/11/20 18:43 Oxyhemoglobin 93.7 % (95.0-99.0) L 07/08/20 Unknown Carboxyhemoglobin 1.2 (0.5-1.5) 08/11/20 18:43 FiO2 50.0 08/11/20 18:43 Sodium 143 mmol/L (137-145) 08/22/20 05:11 Potassium 3.8 mmol/L (3.6-5.0) 08/23/20 04:39 Chloride 99.8 mmol/L (98-107) 08/22/20 05:11 Carbon Dioxide 31 mmol/L (22-30) H 08/22/20 05:11 Anion Gap 16 mmol/L 08/22/20 05:11 BUN 15 mg/dL (9-20) 08/22/20 05:11 Creatinine 0.6 mg/dL (0.8-1.3) L 08/22/20 05:11 Estimated GFR > 60 ml/min 08/22/20 05:11 BUN/Creatinine Ratio 25 % 08/22/20 05:11 Glucose 95 mg/dL (75-100) 08/22/20 05:11 POC Glucose 128 mg/dL (70-105) H 08/29/20 20:52 Lactic Acid 0.80 mmol/L (0.7-2.0) 07/13/20 15:45 Calcium 10.1 mg/dL (8.4-10.2) 08/22/20 05:11 Phosphorus 5.10 mg/dL (2.5-4.5) H 08/22/20 05:11 Magnesium 1.90 mg/dL (1.7-2.3) 08/23/20 04:39 Ferritin 1496.0 ng/mL (30.0-300.0) H 06/14/20 11:50 Total Bilirubin 0.30 mg/dL (0.1-1.2) 08/02/20 05:55 Direct Bilirubin 0.6 mg/dL (0-0.2) H 05/11/20 07:30 Indirect Bilirubin 0.9 mg/dL 05/11/20 07:30 AST 37 units/L (5-40) 08/02/20 05:55 ALT 118 units/L (7-56) H 08/02/20 05:55 Alkaline Phosphatase 88 units/L (35-129) 08/02/20 05:55 Lactate Dehydrogenase 705 units/L (91-180) H 05/20/20 08:16 Troponin T 0.015 ng/mL (0.00-0.029) 07/07/20 10:00 C-Reactive Protein 3.10 mg/dL (0.00-1.30) H 05/20/20 08:16 Total Protein 6.4 g/dL (6.3-8.2) 08/02/20 05:55 Albumin 3.3 g/dL (3.9-5) L 08/02/20 05:55 Albumin/Globulin Ratio 1.1 % 08/02/20 05:55 Triglycerides 452 mg/dL (2-149) H 06/30/20 07:00 Lipase 86 units/L (13-60) H 06/29/20 09:36 Procalcitonin 2.15 ng/mL (<0.15) 07/15/20 05:31 Arterial Blood Glucose 149 mg/dL (65-95) H 08/11/20 18:43 Arterial Blood Ionized Calcium 4.8 mg/dL (4.6-5.3) 08/11/20 18:43 Urine Color Fauzia (Yellow) 05/10/20 Unknown Urine Turbidity Clear (Clear) 05/10/20 Unknown Urine pH 5.0 (5.0-7.0) 05/10/20 Unknown Ur Specific Starlight 1.019 (1.003-1.030) 05/10/20 Unknown Urine Protein 100 mg/dl mg/dL (Negative) 05/10/20 Unknown Urine Glucose (UA) Neg mg/dL (Negative) 05/10/20 Unknown Urine Ketones Neg mg/dL (Negative) 05/10/20 Unknown Urine Blood Lg (Negative) 05/10/20 Unknown Urine Nitrite Neg (Negative) 05/10/20 Unknown Urine Bilirubin Neg (Negative) 05/10/20 Unknown Urine Urobilinogen 2.0 mg/dL (<2.0) 05/10/20 Unknown Ur Leukocyte Esterase Neg (Negative) 05/10/20 Unknown Urine WBC (Auto) 11.0 /HPF (0.0-6.0) H 05/10/20 Unknown Urine RBC (Auto) 2.0 /HPF (0.0-6.0) 05/10/20 Unknown U Epithel Cells (Auto) 1.0 /HPF (0-13.0) 05/10/20 Unknown Urine Bacteria (Auto) 1+ /HPF (Negative) 05/10/20 Unknown Urine Mucus Few /HPF 05/10/20 Unknown Plasma/Serum Alcohol < 0.01 % (0-0.07) 05/09/20 14:20 Coronavirus (PCR) Negative (Negative) 08/25/20 10:09 Hepatitis A Ab Total Nonreactive (Nonreactive) 07/09/20 Unknown Hep B Core Total Ab Nonreactive (Nonreactive) 07/09/20 Unknown Hepatitis C RNA Quant See scanned result 07/09/20 Unknown SARS-CoV-2 IgG Ab Reactive (NonReactive) A 05/11/20 07:30 Blood Type B POSITIVE 06/21/20 14:18 Antibody Screen Negative 06/21/20 14:18 Crossmatch See Detail 06/21/20 14:18 - Diagnostic Impressions Diagnostic Impressions: Echocardiogram 05/20/20 13:02 Transthoracic Echocardiogram Indication: CHF BP: 97/73 Conclusions *The study quality is technically very difficult and limited. *The left ventricular chamber size, wall thickness and systolic function are within normal limits. There are no wall motion abnormalities observed. Ejection fraction is normal. *The estimated ejection fraction is 60-65%. *The pericardium appears normal. Findings Procedure Info: The study quality is technically difficult. Left Ventricle: The left ventricular chamber size, wall thickness and systolic function are within normal limits. There are no wall motion abnormalities observed. Ejection fraction is normal. The estimated ejection fraction is 60-65%. Abnormal left ventricular diastolic filling is observed, consistent with impaired relaxation. Left Atrium: The left atrium is normal in size with no visual thrombus identified. Right Ventricle: The right ventricle is not well visualized. Right Atrium: The right atrium is not well visualized. Aortic Valve: The aortic valve is trileaflet. The leaflets are thin with normal excursion. There is no aortic stenosis or regurgitation present. Mitral Valve: The mitral valve appears normal in structure and function. Tricuspid Valve: The tricuspid valve appears normal in structure and function. Unable to estimate the right ventricular systolic pressure. Pulmonic Valve: The pulmonic valve is not well visualized. There is no evidence of pulmonic regurgitation. There is no pulmonic stenosis. Pericardium: The pericardium appears normal. Pulmonary Artery: The main pulmonary artery is not well visualized. Venous: The inferior vena cava appears normal in size. Measurements Chambers 2D Name Value Normal Range IVSd (2D) 0.83 cm (0.6 - 1.1) LVPWd (2D) 0.83 cm (0.6 - 1.1) LVIDd (2D) 3.88 cm (3.7 - 5.6) LVIDs (2D) 2.46 cm (2 - 3.8) LV FS (2D) 36.52 % - EF Teichholz (2D) 66.97 % - Ao root diameter (2D) 3.47 cm (2 - 3.7) Volumes/Mass Name Value Normal Range LA ESV SP 4CH (A/L) 22.4 ml - LA ESV SP 2CH (A/L) 22.89 ml - LA ESV BP (A/L) 23.06 ml - LA ESV SP 4CH (MOD) 21.09 ml - LA ESV SP 2CH (MOD) 22.44 ml - Diastolic/Systolic Function Name Value Normal Range MV E-wave Vmax 0.48 m/sec - MV deceleration time 156.3 msec - MV A-wave Vmax 0.59 m/sec - MV E:A ratio 0.81 ratio - Aortic Valve Name Value Normal Range AV Vmax 0.97 m/sec - AV VTI 14.49 cm - AV peak gradient 3.73 mmHg - AV mean gradient 1.89 mmHg - LVOT diameter 2.09 cm - LVOT Vmax 0.72 m/sec - LVOT VTI 10.21 cm - LVOT peak gradient 2.05 mmHg - LVOT mean gradient 1.03 mmHg - SV LVOT 35.17 ml - INNA (continuity Vmax) 2.55 cm2 - INNA (continuity VTI) 2.43 cm2 - Tricuspid Valve Name Value Normal Range TV E-wave Vmax 0.37 m/sec - Pulmonic Valve/Qp:Qs Name Value Normal Range PV Vmax 0.72 m/sec - PV peak gradient 2.06 mmHg - RVOT Vmax 0.85 m/sec - RVOT VTI 9.89 cm - RVOT peak gradient 2.9 mmHg - PV acceleration time 72.31 msec - Cantor/IV: Voiding Method Urinal IV Catheter Type [Right Wrist] INT / Saline Lock IV Catheter Type [Right Upper Peripheral IV arm] IV Catheter Type [Right CVL Internal Jugular] IV Catheter Type [Right Peripheral IV Forearm] IV Catheter Type [Left Forearm INT / Saline Lock ] IV Catheter Type [Left Wrist] INT / Saline Lock IV Catheter Type [Right Hand] INT / Saline Lock IV Catheter Type [Left Hand] INT / Saline Lock IV Catheter Type [Left Peripheral IV Antecubital] Active Medications - Current Medications Current Medications: Generic Name Dose Route Start Last Admin Trade Name Freq PRN Reason Stop Dose Admin Acetaminophen 650 mg 08/07/20 10:06 08/29/20 22:03 Acetaminophen 325 Mg Tab PO 650 mg Q4H PRN Administration Pain, Mild (1-3) Bisacodyl 10 mg 07/14/20 11:00 Bisacodyl 10 Mg Rect Supp ME BID PRN Laxative Effect Enoxaparin Sodium 40 mg 07/29/20 22:00 08/29/20 22:03 Enoxaparin 40 Mg/0.4 Ml Inj SUB-Q 40 mg QDAY@2200 [facility] Administration Protocol Folic Acid 1 mg 05/09/20 15:36 08/29/20 10:27 Folic Acid 1 Mg Tab PO 1 mg QDAY DESIRE Administration Guaifenesin 600 mg 07/19/20 23:00 08/29/20 22:03 Guaifenesin Er 600 Mg Tab PO 600 mg BID DESIRE Administration Hydrophilic Ointment 1 applic 05/21/20 20:33 Lip Therapy Vaseline TP Q2HR PRN Dry Lips Insulin Human Lispro 0 unit 07/31/20 07:30 08/29/20 22:04 Insulin Lispro 100 Unit/Ml SUB-Q Not Given ACHS [facility] Protocol Metoprolol Tartrate 5 mg 07/02/20 17:17 08/23/20 13:57 Metoprolol Tartrate 5 Mg/5 Ml Inj IV 5 mg Q6HR PRN Administration Tachyarrhythmias Metoprolol Tartrate 25 mg 08/12/20 12:00 08/29/20 22:03 Metoprolol Tartrate 25 Mg Tab PO 25 mg BID DESIRE Administration Multi-Ingred Cream/Lotion/Oil/Oint 1 applic 05/21/20 20:33 Mineral Oil/Petrolatum, White Ophth Oint 3.5 Gm OU Q4HR PRN Dry Eye(s) Olanzapine 5 mg 07/17/20 22:00 08/29/20 22:03 Olanzapine 5 Mg Tab PO 5 mg QHS DESIRE Administration Ondansetron HCl 4 mg 08/23/20 13:10 Ondansetron 4 Mg/2 Ml Inj IV Q4H PRN Nausea And Vomiting Phenobarbital 32.4 mg 07/04/20 22:00 08/29/20 22:04 Phenobarbital 32.4 Mg Tab PO 32.4 mg BID DESIRE Administration Pseudoephedrine/Acetam/Chlorphenir 10 ml 08/18/20 15:45 08/23/20 22:37 Guaifenesin/Codeine 100-10mg Oral Liqd 5 Ml PO 10 ml Q4H PRN Administration Cough Quetiapine Fumarate 200 mg 07/16/20 10:00 08/29/20 10:28 Quetiapine 200 Mg Tab PO 200 mg QAM DESIRE Administration Senna 17.2 mg 07/14/20 11:00 08/03/20 16:46 Sennosides 8.6 Mg Tab PO 8.6 mg BID PRN Administration Laxative Effect Nutrition/Malnutrition Assess - Dietary Evaluation Nutrition/Malnutrition Findings: Nutrition Notes Start: 05/17/20 14:10 Freq: Status: Active Protocol: Document 08/25/20 11:44 CW (Rec: 08/25/20 11:59 CW [id number]) Nutrition Notes Initial or Follow up Reassessment Current Diagnosis Acute Kidney Injury,Decubitus( Pressure Ulcer),Sepsis, Respiratory Failure Other Pertinent Diagnosis Bilat pneu,Colonic pseudoobstuction, EtOH dependence Current Diet Regular diet Labs/Tests Reviewed Pertinent Medications Humalog Height 6 ft Weight 101.2 kg [place] Body Weight (kg) 80.90 BMI 30.2 Weight change and time frame Weight gain noted Weight Status Obese Subjective/Other Information F/U for ONS and intakes. Pt states drinking and eating 100 % of meals and ONS. Denies N/V /D/C. Weight is trending upwards. Will continue ONS despite weight gain for needed protein for wound healing. Adm weight on 07/27 noted as 96 .1kg, indicating a 5% weight gain x 30 days. 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 Pt awaitign transfer to rehab facility Diagnosis Progress(for reassessment Continues documentation) #2 Nutrition Diagnosis Increased nutrient needs ( specify in comment below) Diagnosis Progress(for reassessment Continues documentation) Is patient on ventilator? No Is Patient Ambulatory and/or Out of Bed No REE-([facility]-confined to bed) [phone] Kcal/Kg value to use for calculation 20 Approximate Energy Requirements Using 2023 kcal/Kg Calculation Used for Recommendations Kcal/kg Additional Notes Protein: 110-137 g (1.2-1.5 g/ kg AdBW 91.05 kg) Fluid: 1ml/kcal Nutrition Intervention Change Diet Order: Continue diet Add Supplement/Snack (indicate name/kcal Ensure High Protein daily /protein ) Sammy BID Provides kCal: 350 Provides Protein (gm) 21 Goal #1 Meet at least 75% protein and energy needs via PO Goal #2 ONS tolerance Goal #3 Intake of Sammy BID Anticipated Discharge Needs: Regular dier, Sammy BID and Ensure High Protein until wound healed Follow-Up By: 09/01/20 Additional Comments F/u stable intakes, ONS tolerance
[2020-08-30] MEDS: INSULIN LISPRO 100 UNIT/ML SUB-Q SCH (08:48)
--- NOTE | 2020-08-30 09:19 | Discharge Summary ---
Providers - Providers Date of Admission: 05/09/20 15:13 Date of discharge: 08/30/20 Attending physician: ALANNAH AMEZQUITA MD 05/10/20 15:30 Consult to Physician [CONS] Routine Comment: Consulting Provider: BERHANE CUENCA Physician Instructions: Reason For Exam: covid positive 05/11/20 05:59 Consult to Physician [CONS] Routine Comment: Consulting Provider: HALEY LONG Physician Instructions: Reason For Exam: respiratory failure 05/21/20 18:41 Consult to Dietitian/Nutrition [CONS] Routine Physician Instructions: Reason For Exam: Reason for Consult: Evaluate nutritional intake 05/21/20 18:43 Consult to Dietitian/Nutrition [CONS] Routine Physician Instructions: Reason For Exam: Reason for Consult: Evaluate nutritional intake Consult to Dietitian/Nutrition [CONS] Routine Physician Instructions: Reason For Exam: Reason for Consult: Write/Manage Tube Feeding 05/21/20 20:33 Consult to Dietitian/Nutrition [CONS] Routine Physician Instructions: Reason For Exam: Reason for Consult: Evaluate nutritional intake 06/04/20 15:54 Consult to PICC Line RN [CONS] Urgent Reason For Exam: vasoactive medication Type Line:: PICC 06/08/20 10:07 Consult to PICC Line RN [CONS] Urgent Reason For Exam: vasopressors Type Line:: PICC 06/09/20 18:39 Consult to Wound/ET Nurse [CONS] Routine Reason For Exam: wound eval- sacrum 06/14/20 12:54 Consult to Physician [CONS] Stat Comment: sopke with dr. carpenter/ jose elias Consulting Provider: BERHANE CUENCA Physician Instructions: Reason For Exam: fever 06/20/20 18:46 Consult to Physician [CONS] Routine Comment: Consulting Provider: ANGELINA ESPINOZA Physician Instructions: Reason For Exam: Pneumothorax 06/22/20 15:52 Consult to Physician [CONS] Routine Comment: Consulting Provider: BOB MEZA Physician Instructions: Reason For Exam: Acute anemia 07/14/20 08:44 Physical Therapy Evaluation and Treat [CONS] Routine Comment: Reason For Exam: doconditioning 07/14/20 08:46 Occupational Therapy Evaluate and Treat [CONS] Routine Comment: Reason For Exam: deconditioning 07/14/20 13:23 Speech Therapy Evaluation and Treat [CONS] Routine Reason For Exam: dyspagia 07/15/20 14:42 Consult to Physician [CONS] Routine Comment: called candice/ jose elias Consulting Provider: MARIA DE JESUS CALZADA Physician Instructions: Reason For Exam: Delirium 07/19/20 12:09 Speech Therapy Evaluation and Treat [CONS] Routine Reason For Exam: SWALLOW EVALUATION 07/26/20 19:07 Physical Therapy Evaluation and Treat [CONS] Routine Comment: PT eval /DC needs Reason For Exam: Reconsult/patient stable respiratory status 07/27/20 15:12 Physical Therapy Evaluation and Treat [CONS] Routine Comment: Reason For Exam: debility Date of last referral: 07/27/20 07/31/20 17:35 Occupational Therapy Evaluate and Treat [CONS] Routine Comment: Reason For Exam: PT OT EVAL /RX Physical Therapy Evaluation and Treat [CONS] Routine Comment: Reason For Exam: PT ,OT EVAL /RX 08/03/20 03:36 Consult to Wound/ET Nurse [CONS] Routine Reason For Exam: wound miguelangel 08/20/20 06:34 Consult to Wound/ET Nurse [CONS] Routine Reason For Exam: wound eval 08/20/20 07:51 Physical Therapy Evaluation and Treat [CONS] Routine Comment: Re-evaluate Reason For Exam: debillity Primary care physician: DIRECTOR OF SPECIAL EDUCATION Hospitalization Reason for admission: Acute respiratory failure, acute renal failure, alcohol abuse, pneumonia Condition: Stable Procedures: Intubated Hospital course: Brief History: 50 YO Male with Obesity, ETOH Dependence presents to ED for evaluation for shortness of breath, generalized weakness, fatigue, malaise, body aches, decreased exercise tolerance over the past 5 days. EMS was notified and upon arrival the patient was found to be in distress with a pulse oximetry of 76% on room air as well as fever to 103 F. In the ER chest x-ray and was found to have bilateral pneumonia. Patient admitted to medical floor and initiated on pneumonia protocol as well as COVID-19 protocol. Patient reports being diagnosed with coronavirus 2 days ago before admission. - Acute hypoxemic respiratory failure; Patient intubated and on vent support weaning protocol - need tach placement --Severe COVID-19 bilateral pneumonia Coronavirus protocol: IV steroid therapy, completed remdesivir, isolation precautions, contact precautions, prone positioning while in bed, pulmonary toilet. ID following SARS CoV-2 IgG positive patient is NOT a candidate for COVID convalescent plasma Covid test came negative on 06/30/20 --Severe sepsis/septic shock, due to COVID 19 PNA cont pressors as needed -- Acute kidney injury (SEN) , likely vasomotor nephropathy Resolved, IV fluids, avoid nephrotoxins --Acute on chronic anemia Guaiac test positive GI evaluation PPIs Continue to monitor -- Elevated liver function tests Suspected secondary to alcoholic liver disease. Supportive care, alcohol cessation, patient counseled. 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 patient on high flow O2 05/18/20; patient feels slightly better still hypoxic, requiring continuous high flow oxygen and BiPAP Respiratory team trying to wean 05/19/20; patient is severely hypoxemic requiring continuous BiPAP today, complains of generalized weakness Trying to wean off high flow oxygen, patient is in isolation 05/20/2020; patient remains on high flow oxygen/BiPAP/100% nonrebreather. Still is hypoxemic Has sinus tachycardia patient in mild distress Wean off high flow oxygen as tolerated, pulmonary critical following 05/21/20; patient is critically ill, on continuous BiPAP remains hypoxemic in mild distress. Patient has severe Covid Pneumonia with persistent hypoxemia and poor prognosis. 05/22/2020: Patient was intubated last night because of persistent hypoxemia. 05/23-06/15: Remains on ventilatory support, unable to wean off from the vent. 06/16/2020. Patient currently on mechanical ventilation with AC mode rate 30, tidal volume 500, FiO2 70% and PEEP of 16. Continue anticoagulation with Lovenox 110 milligrams subcu every 12 hours. Wean sedation of fentanyl/Versed as needed. Currently with IV steroids of Solu-Medrol 40 mg IV every 12 hours. Patient will likely need tracheostomy per pulmonary recommendations. Continue pressors to maintain MAP > 65. 06/17/2020. Patient currently on mechanical ventilation with AC mode rate 30, tidal volume 500, FiO2 65% and PEEP of 16. Continue anticoagulation with Lovenox 110 milligrams subcu every 12 hours. Wean sedation of fentanyl/Versed as needed. Currently with IV steroids of Solu-Medrol 40 mg IV every 12 hours. Patient will likely need tracheostomy per pulmonary recommendations. 06/18/2020. Patient currently on mechanical ventilation with AC mode rate 30, tidal volume 500, FiO2 70% and PEEP of 16. Continue Lovenox for anticoagulation and fentanyl/Versed for sedation. Wean steroids per pulmonary. CIWA protocol initiated for history of EtOH dependence 06/19/2020. Patient currently on mechanical ventilation with AC mode rate 30, tidal volume 500, FiO2 60% and PEEP of 16. Wean FiO2 as tolerated per protocol. Continue Lovenox for anticoagulation and fentanyl/Versed for sedation. Wean steroids per pulmonary. CIWA protocol initiated for history of EtOH dependence 06/20/2020. Patient currently on mechanical ventilation with AC mode rate 30, tidal volume 500, FiO2 60% and PEEP of 16. Wean FiO2 as tolerated, SBT per protocol. Continue Lovenox for anticoagulation and fentanyl/Versed for sedation. Wean steroids per pulmonary. Continue pressors to maintain MAP > 65 mmHg. Patient remains on ETT. Consider tracheostomy placement once oxygenation is better per pulmonary. CIWA protocol initiated for history of EtOH dependence. 06/21/2020. Patient with a small apical pneumothorax discovered yesterday. General surgery consulted and consider placing chest tube. Follow-up serial chest x-ray patient currently on mechanical ventilation with AC mode rate 30, tidal volume 500, FiO2 60% and PEEP of 16. Wean FiO2 as tolerated, SBT per protocol. Continue Lovenox for anticoagulation and fentanyl/Versed for sedation. Wean steroids per pulmonary. Continue pressors to maintain MAP > 65 mmHg. Patient remains on ETT. Consider tracheostomy placement once oxygenation is better per pulmonary. CIWA protocol initiated for history of EtOH dependence. 06/22. Status post right chest tube placement yesterday. Remains mechanically ventilated on pressors. Examination today shows slightly distended abdomen. KUB ordered. Awaiting stool guaiac. Plan to get a GI evaluation. 06/23. Has colonic distention on the x-ray. Discussed with GI-advised stool softeners for now and close monitoring. No indication for colonic decompression at this time. Guaiac test is positive. No emergent indication for endoscopy at this point as per GI. Continue to monitor hemoglobin. 06/24. Remains intubated. On pressors. GI following for positive guaiac stool and anemia, and colonic distention. 06/25. Repeat abdominal xray ordered. Remains on mechanical ventilation. 06/26. Abdominal xray - resolved colonic distension. Mechanically ventilated. 06/27. Plan for trach and PEG. 06/28: Awaiting trach and Peg. Some Bm REPORTED, will continue to monitor 06/29: Resume care, patient remains on ventilator support, waiting on trach and PEG placement. BM reported by the RN, continue to monitor. 06/30: Unable to wean off from vent, patient will need trach and PEG. Continue supportive care, tolerating tube feed. Monitor CBC and BMP 07/01: Continue mechanical ventilation, tube feeding as tolerated. Sedation as needed per mechanical ventilation protocol. Waiting on trach and PEG placement. 07/02: Continue current management, tube feeding, monitor CBC and BMP. Need trach and PEG-waiting on scheduling. Pulmonary critical care following. 07/03: wean off vent as tolerated. follow clinically. need trach and PEG 07/04: unable to wean. CT head ordered to assess for any changes but too unstable to do the test. need trach and PEG. 07/05: plan for trach/peg - GS following. off pressor - on midodrine. renal function stable. intubated, but alert and can follow minor commend. discussed with daughter by phone. 07/06/2020; Dr. Espinoza discussed with patient's daughter about trach but the daughter needs time to think about it. Patient was intubated and alert, FiO2 40%. 07/07/2020; patient was intubated and alert, FiO2 40%. Patient was diaphoretic, tachycardic, and EKG was done which was abnormal for me. I called social services specialist Dr Louis saw the EKG and said it is normal EKG, and the findings are abnormal. 07/08/2020; no significant change, patient is intubated and alert. 08/08/2020; patient is stable for discharge to inpatient rehab unit, pending insurance approval 08/09/2020; lead case manager reports that insurance has not approved inpatient rehab placement for this patient Will evaluate for home oxygen, set up home oxygen if eligible, and plan discharge home with home health when patient is hemodynamically stable 08/10/2020; patient continues to have persistent tachycardia, and persistent hypoxia requiring 4 L of nasal cannula oxygen As well as intermittent BiPAP, continue current management 08/11/2020; patient continues to require oxygen and intermittent BiPAP, awaiting IRU placement Versus home with home health and home oxygen, DC planning per case management 08/12/2020; awaiting IRU placement versus home with home health on home oxygen 08/13/2020 through 08/14/2020 Patient awaiting transfer placement 08/14/2020 through 08/16/2020 Patient waiting for rehab placement Discussed with case management today again 08/28/2020; patient was alert and oriented, he said he has generalized weakness, but able to stand. He is on 3 L of oxygen and doing well. Pending insurance authorization to rehab placement. Case management to following. 08/29/2020; patient was alert and oriented, he said he has generalized weakness, but able to stand. He is on 3 L of oxygen and doing well. Pending insurance authorization to rehab placement. Case management to following. 08/30/2020; patient is doing well on 2 L of oxygen. Pending rehab placement. Case management is following. Patient is doing well, alert and oriented, on 2 L of oxygen. I have explained the patient about the discharge to SNF facility and patient was in agreement with the plan of care. Patient's questions and concerns were addressed at the bedside. Patient discharged to [facility]. Patient was hemodynamically stable at the time of discharge. Appropriate medication scripts were given at the time of discharge. Disposition: [id number] INPT REHAB FACILITY Time spent for discharge: 35 minutes - Discharge Diagnoses (1) Acute kidney injury (SEN) with acute tubular necrosis (ATN) Status: Acute (2) Acute respiratory failure due to COVID-19 Status: Acute (3) Alcohol dependence Status: Acute Qualifiers: Substance use status: uncomplicated Qualified Code(s): F10.20 - Alcohol dependence, uncomplicated (4) Anemia Status: Acute (5) Bilateral pneumonia Status: Acute Core Measure Documentation - Palliative Care Palliative Care/ Comfort Measures: Not Applicable - Core Measures Any of the following diagnoses?: none Exam - Physical Exam Narrative exam: Not in cardiopulmonary distress. On 3 L of oxygen The patient is obese. Vital signs as documented. Head exam is unremarkable. No scleral icterus . Neck is without jugular venous distension, thyromegaly, or carotid bruits. Lungs are clear to auscultation. Cardiac exam reveals regular rate and Rhythm. Abdominal exam reveals normal bowel sounds, nontender, no organomegaly. Extremities are nonedematous and both femoral and pedal pulses are normal. 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 No focal weakness. - Constitutional Vitals: Temp Pulse Resp BP Pulse Ox 98.7 F 89 16 102/69 96 08/30/20 03:44 08/30/20 03:44 08/30/20 03:44 08/30/20 03:44 08/30/20 08:25 Plan Activity: advance as tolerated Weight Bearing Status: Full Weight Bearing Diet: regular Follow up with: PRIMARY CAREMD [Primary Care Provider] - 3-5 Days CELESTINE CRONIN MD [Staff Physician] - 14 Days Prescriptions: OLANzapine [ZyPREXA] 5 mg PO QHS #30 tablet bisacodyL [Dulcolax suppos] [address] BID PRN #30 supp.rect PRN Reason: Laxative Effect Folic Acid [Folvite] 1 mg PO QDAY #30 tablet Metoprolol [Lopressor TAB] 25 mg PO BID #30 tablet Metformin HCl [Metformin HCl ER] 500 mg PO DAILY #30 tab.er.24h guaiFENesin ER [Mucinex ER] 600 mg PO BID #60 tablet PHENobarbitaL [PHENobarbital] 32.4 mg PO BID #60 tablet Sennosides Tab [Senokot] 17.2 mg PO BID PRN #60 tablet PRN Reason: Laxative Effect QUEtiapine [SEROquel] 200 mg PO QAM #30 tablet
[2020-08-30 09:27] VITALS: BP 110/71
[2020-08-30] MEDS: FOLIC ACID 1 MG TAB PO SCH (09:27)
[2020-08-30] MEDS: PHENobarbital 32.4 MG TAB PO SCH (09:27)
[2020-08-30] MEDS: QUEtiapine 200 MG TAB PO SCH (09:27)
[2020-08-30] MEDS: guaiFENesin ER 600 MG TAB PO SCH (09:27)
[2020-08-30] MEDS: METOPROLOL TARTRATE 25 MG TAB PO SCH (09:27)
--- NOTE | 2020-08-30 14:28 | Progress Note ---
Assessment and Plan - Patient Problems (1) Acute respiratory failure due to COVID-19 Status: Acute Plan to address problem: (2) Bilateral pneumonia Status: Acute Plan to address problem: (3) Acute kidney injury (SEN) with acute tubular necrosis (ATN) Status: Acute (4) Alcohol dependence Status: Acute Qualifiers: Substance use status: uncomplicated Qualified Code(s): F10.20 - Alcohol dependence, uncomplicated (5) Elevated liver function tests Status: Acute Subjective Date of service: 08/30/20 Principal diagnosis: Ac hypoxemic resp failure; COVID-19; Severe Sepsis; Shaggy PNA; Alcohol Abuse Interval history: Patient left before i see him to day. So cancelling to days note. . Objective Vital Signs - 12hr 08/30/20 08/30/20 08/30/20 03:44 07:26 07:44 Temperature 98.7 F 98.3 F Pulse Rate 89 90 90 Respiratory 16 18 Rate Blood Pressure 102/69 110/71 O2 Sat by Pulse 98 99 Oximetry 08/30/20 08/30/20 08:25 09:27 Temperature Pulse Rate 90 Respiratory Rate Blood Pressure 110/71 O2 Sat by Pulse 96 Oximetry Effort: mildly labored CBC and BMP: 08/22/20 05:11 08/23/20 04:39 ABG, PT/INR, D-dimer: ABG ABG pH 7.437 (7.320-7.450) 08/11/20 18:43 POC ABG pCO2 51.0 mmHg (32.0-48.0) H 08/11/20 18:43 ABG pCO2 53.1 mm Hg 07/08/20 Unknown POC ABG pO2 84.9 mmHg (83-108) 08/11/20 18:43 ABG pO2 75.3 mm Hg (80.0-90.0) L 07/08/20 Unknown POC ABG HCO3 33.6 08/11/20 18:43 ABG O2 Saturation 96.5 % (95.0-99.0) 07/08/20 Unknown PT/INR, D-dimer PT 11.8 Sec. (12.2-14.9) L 06/22/20 14:29 INR 0.88 (0.87-1.13) 06/22/20 14:29 D-Dimer 1887.82 ng/mlDDU (0-234) H 05/20/20 08:16 Abnormal lab findings: Abnormal Labs 05/09/20 05/09/20 05/09/20 12:59 12:59 12:59 WBC 11.8 H RBC Hgb Hct MCV 96 H MCH 34 H MCHC 35 H RDW Lymph % (Auto) 6.9 L Walker % (Auto) Lymph # (Auto) 0.8 L Walker # (Auto) Baso # (Auto) Seg Neutrophils % 87.5 H Seg Neuts % (Manual) Lymphocytes % (Manual) Nucleated RBC % Seg Neutrophils # 10.3 H Seg Neutrophils # Man Lymphocytes # (Manual) Monocytes # (Manual) Eosinophils # (Manual) PT INR APTT D-Dimer Heparin Anti-Xa Level ABG pH POC ABG pCO2 POC ABG pO2 ABG pO2 ABG HCO3 ABG O2 Saturation ABG Base Excess ABG Hemoglobin ABG Oxyhemoglobin ABG Sodium ABG Potassium ABG Chloride ABG Glucose Oxyhemoglobin Carboxyhemoglobin Sodium 130 L Potassium 3.5 L Chloride 86.4 L Carbon Dioxide BUN 33 H Creatinine 2.3 H Glucose 156 H POC Glucose Hemoglobin A1c Lactic Acid Calcium Phosphorus Magnesium Ferritin Total Bilirubin 3.40 H Direct Bilirubin 1.7 H AST 385 H ALT 134 H Alkaline Phosphatase Lactate Dehydrogenase C-Reactive Protein Total Protein Albumin 3.0 L Triglycerides Lipase Arterial Blood Glucose Arterial Blood Ionized Calcium Urine WBC (Auto) Coronavirus (PCR) SARS-CoV-2 IgG Ab Crossmatch 05/09/20 05/09/20 05/09/20 12:59 12:59 12:59 WBC RBC Hgb Hct MCV MCH MCHC RDW Lymph % (Auto) Walker % (Auto) Lymph # (Auto) Walker # (Auto) Baso # (Auto) Seg Neutrophils % Seg Neuts % (Manual) Lymphocytes % (Manual) Nucleated RBC % Seg Neutrophils # Seg Neutrophils # Man Lymphocytes # (Manual) Monocytes # (Manual) Eosinophils # (Manual) PT INR APTT D-Dimer 3242.51 H Heparin Anti-Xa Level ABG pH POC ABG pCO2 POC ABG pO2 ABG pO2 ABG HCO3 ABG O2 Saturation ABG Base Excess ABG Hemoglobin ABG Oxyhemoglobin ABG Sodium ABG Potassium ABG Chloride ABG Glucose Oxyhemoglobin Carboxyhemoglobin Sodium Potassium Chloride Carbon Dioxide BUN Creatinine Glucose 158 H POC Glucose Hemoglobin A1c Lactic Acid 3.50 H* Calcium Phosphorus Magnesium Ferritin Total Bilirubin Direct Bilirubin AST ALT Alkaline Phosphatase Lactate Dehydrogenase 2166 H C-Reactive Protein 39.00 H Total Protein Albumin Triglycerides Lipase Arterial Blood Glucose Arterial Blood Ionized Calcium Urine WBC (Auto) Coronavirus (PCR) SARS-CoV-2 IgG Ab Crossmatch 05/09/20 05/09/20 05/09/20 12:59 14:20 14:20 WBC RBC Hgb Hct MCV MCH MCHC RDW Lymph % (Auto) Walker % (Auto) Lymph # (Auto) Walker # (Auto) Baso # (Auto) Seg Neutrophils % Seg Neuts % (Manual) Lymphocytes % (Manual) Nucleated RBC % Seg Neutrophils # Seg Neutrophils # Man Lymphocytes # (Manual) Monocytes # (Manual) Eosinophils # (Manual) PT INR APTT D-Dimer 2861.78 H Heparin Anti-Xa Level ABG pH POC ABG pCO2 POC ABG pO2 ABG pO2 ABG HCO3 ABG O2 Saturation ABG Base Excess ABG Hemoglobin ABG Oxyhemoglobin ABG Sodium ABG Potassium ABG Chloride ABG Glucose Oxyhemoglobin Carboxyhemoglobin Sodium Potassium Chloride Carbon Dioxide BUN Creatinine Glucose POC Glucose Hemoglobin A1c Lactic Acid 2.20 H* Calcium Phosphorus Magnesium Ferritin 15610.0 H Total Bilirubin Direct Bilirubin AST ALT Alkaline Phosphatase Lactate Dehydrogenase C-Reactive Protein Total Protein Albumin Triglycerides Lipase Arterial Blood Glucose Arterial Blood Ionized Calcium Urine WBC (Auto) Coronavirus (PCR) SARS-CoV-2 IgG Ab Crossmatch 05/09/20 05/09/20 05/09/20 14:20 14:20 15:56 WBC RBC Hgb Hct MCV MCH MCHC RDW Lymph % (Auto) Walker % (Auto) Lymph # (Auto) Walker # (Auto) Baso # (Auto) Seg Neutrophils % Seg Neuts % (Manual) Lymphocytes % (Manual) Nucleated RBC % Seg Neutrophils # Seg Neutrophils # Man Lymphocytes # (Manual) Monocytes # (Manual) Eosinophils # (Manual) PT INR APTT D-Dimer Heparin Anti-Xa Level ABG pH POC ABG pCO2 POC ABG pO2 57.3 L ABG pO2 ABG HCO3 ABG O2 Saturation ABG Base Excess ABG Hemoglobin ABG Oxyhemoglobin 86.3 L ABG Sodium 129.9 L ABG Potassium ABG Chloride ABG Glucose 146 H Oxyhemoglobin Carboxyhemoglobin Sodium Potassium Chloride Carbon Dioxide BUN Creatinine Glucose 143 H POC Glucose Hemoglobin A1c Lactic Acid Calcium Phosphorus Magnesium Ferritin 29018.0 H Total Bilirubin Direct Bilirubin AST ALT Alkaline Phosphatase Lactate Dehydrogenase 1953 H C-Reactive Protein 33.50 H Total Protein Albumin Triglycerides Lipase Arterial Blood Glucose 146 H Arterial Blood Ionized Calcium 3.9 L Urine WBC (Auto) Coronavirus (PCR) SARS-CoV-2 IgG Ab Crossmatch 05/10/20 05/10/20 05/10/20 10:32 10:32 18:50 WBC 15.4 H RBC Hgb Hct MCV 97 H MCH 33 H MCHC RDW 13.1 L Lymph % (Auto) Walker % (Auto) Lymph # (Auto) Walker # (Auto) Baso # (Auto) Seg Neutrophils % Seg Neuts % (Manual) 89.0 H Lymphocytes % (Manual) 8.0 L Nucleated RBC % Seg Neutrophils # Seg Neutrophils # Man 13.7 H Lymphocytes # (Manual) Monocytes # (Manual) Eosinophils # (Manual) PT INR APTT D-Dimer Heparin Anti-Xa Level ABG pH POC ABG pCO2 POC ABG pO2 ABG pO2 ABG HCO3 ABG O2 Saturation ABG Base Excess ABG Hemoglobin ABG Oxyhemoglobin ABG Sodium ABG Potassium ABG Chloride ABG Glucose Oxyhemoglobin Carboxyhemoglobin Sodium 136 L Potassium Chloride 97.4 L Carbon Dioxide BUN 37 H Creatinine 1.7 H Glucose 209 H POC Glucose Hemoglobin A1c Lactic Acid Calcium Phosphorus Magnesium Ferritin > 2000.0 H Total Bilirubin Direct Bilirubin AST ALT Alkaline Phosphatase Lactate Dehydrogenase C-Reactive Protein Total Protein Albumin Triglycerides Lipase Arterial Blood Glucose Arterial Blood Ionized Calcium Urine WBC (Auto) Coronavirus (PCR) SARS-CoV-2 IgG Ab Crossmatch 05/10/20 05/10/20 05/10/20 18:50 19:00 Unknown WBC RBC Hgb Hct MCV MCH MCHC RDW Lymph % (Auto) Walker % (Auto) Lymph # (Auto) Walker # (Auto) Baso # (Auto) Seg Neutrophils % Seg Neuts % (Manual) Lymphocytes % (Manual) Nucleated RBC % Seg Neutrophils # Seg Neutrophils # Man Lymphocytes # (Manual) Monocytes # (Manual) Eosinophils # (Manual) PT INR APTT D-Dimer > 48162 H Heparin Anti-Xa Level ABG pH POC ABG pCO2 POC ABG pO2 ABG pO2 ABG HCO3 ABG O2 Saturation ABG Base Excess ABG Hemoglobin ABG Oxyhemoglobin ABG Sodium ABG Potassium ABG Chloride ABG Glucose Oxyhemoglobin Carboxyhemoglobin Sodium Potassium Chloride Carbon Dioxide BUN Creatinine Glucose POC Glucose Hemoglobin A1c Lactic Acid Calcium Phosphorus Magnesium Ferritin Total Bilirubin Direct Bilirubin AST ALT Alkaline Phosphatase Lactate Dehydrogenase 1879 H C-Reactive Protein 24.80 H Total Protein Albumin Triglycerides Lipase Arterial Blood Glucose Arterial Blood Ionized Calcium Urine WBC (Auto) 11.0 H Coronavirus (PCR) SARS-CoV-2 IgG Ab Crossmatch 05/10/20 05/11/20 05/11/20 Unknown 07:30 07:30 WBC RBC Hgb Hct MCV MCH MCHC RDW Lymph % (Auto) Walker % (Auto) Lymph # (Auto) Walker # (Auto) Baso # (Auto) Seg Neutrophils % Seg Neuts % (Manual) Lymphocytes % (Manual) Nucleated RBC % Seg Neutrophils # Seg Neutrophils # Man Lymphocytes # (Manual) Monocytes # (Manual) Eosinophils # (Manual) PT INR APTT D-Dimer > 2000 H Heparin Anti-Xa Level ABG pH POC ABG pCO2 POC ABG pO2 ABG pO2 ABG HCO3 ABG O2 Saturation ABG Base Excess ABG Hemoglobin ABG Oxyhemoglobin ABG Sodium ABG Potassium ABG Chloride ABG Glucose Oxyhemoglobin Carboxyhemoglobin Sodium Potassium Chloride 96.3 L Carbon Dioxide BUN 36 H Creatinine Glucose 161 H POC Glucose Hemoglobin A1c Lactic Acid Calcium 8.3 L Phosphorus Magnesium Ferritin Total Bilirubin 1.50 H Direct Bilirubin 0.6 H AST 178 H ALT 111 H Alkaline Phosphatase Lactate Dehydrogenase C-Reactive Protein Total Protein Albumin 3.0 L Triglycerides Lipase Arterial Blood Glucose Arterial Blood Ionized Calcium Urine WBC (Auto) Coronavirus (PCR) Positive A SARS-CoV-2 IgG Ab Crossmatch 05/11/20 05/11/20 05/11/20 07:30 07:30 07:30 WBC RBC Hgb Hct MCV MCH MCHC RDW Lymph % (Auto) Walker % (Auto) Lymph # (Auto) Walker # (Auto) Baso # (Auto) Seg Neutrophils % Seg Neuts % (Manual) Lymphocytes % (Manual) Nucleated RBC % Seg Neutrophils # Seg Neutrophils # Man Lymphocytes # (Manual) Monocytes # (Manual) Eosinophils # (Manual) PT INR APTT D-Dimer Heparin Anti-Xa Level ABG pH POC ABG pCO2 POC ABG pO2 ABG pO2 ABG HCO3 ABG O2 Saturation ABG Base Excess ABG Hemoglobin ABG Oxyhemoglobin ABG Sodium ABG Potassium ABG Chloride ABG Glucose Oxyhemoglobin Carboxyhemoglobin Sodium Potassium Chloride Carbon Dioxide BUN Creatinine Glucose POC Glucose Hemoglobin A1c Lactic Acid Calcium Phosphorus Magnesium Ferritin 51991.0 H Total Bilirubin Direct Bilirubin AST ALT Alkaline Phosphatase Lactate Dehydrogenase 1523 H C-Reactive Protein 12.90 H Total Protein Albumin Triglycerides Lipase Arterial Blood Glucose Arterial Blood Ionized Calcium Urine WBC (Auto) Coronavirus (PCR) SARS-CoV-2 IgG Ab Reactive A Crossmatch 05/13/20 05/13/20 05/15/20 05:20 05:20 08:15 WBC RBC Hgb Hct MCV MCH MCHC RDW Lymph % (Auto) Walker % (Auto) Lymph # (Auto) Walker # (Auto) Baso # (Auto) Seg Neutrophils % Seg Neuts % (Manual) Lymphocytes % (Manual) Nucleated RBC % Seg Neutrophils # Seg Neutrophils # Man Lymphocytes # (Manual) Monocytes # (Manual) Eosinophils # (Manual) PT INR APTT D-Dimer > 61910 H 5318.28 H Heparin Anti-Xa Level ABG pH POC ABG pCO2 POC ABG pO2 ABG pO2 ABG HCO3 ABG O2 Saturation ABG Base Excess ABG Hemoglobin ABG Oxyhemoglobin ABG Sodium ABG Potassium ABG Chloride ABG Glucose Oxyhemoglobin Carboxyhemoglobin Sodium Potassium Chloride Carbon Dioxide 32 H BUN 30 H Creatinine Glucose 156 H POC Glucose Hemoglobin A1c Lactic Acid Calcium Phosphorus Magnesium 2.60 H Ferritin Total Bilirubin 1.40 H Direct Bilirubin AST 121 H ALT 119 H Alkaline Phosphatase Lactate Dehydrogenase 957 H C-Reactive Protein 4.00 H Total Protein Albumin 3.0 L Triglycerides Lipase Arterial Blood Glucose Arterial Blood Ionized Calcium Urine WBC (Auto) Coronavirus (PCR) SARS-CoV-2 IgG Ab Crossmatch 05/15/20 05/15/20 05/15/20 08:15 08:15 08:15 WBC 12.4 H RBC Hgb Hct MCV 98 H MCH 33 H MCHC RDW Lymph % (Auto) 9.7 L Walker % (Auto) Lymph # (Auto) Walker # (Auto) Baso # (Auto) Seg Neutrophils % 86.8 H Seg Neuts % (Manual) Lymphocytes % (Manual) Nucleated RBC % Seg Neutrophils # 10.8 H Seg Neutrophils # Man Lymphocytes # (Manual) Monocytes # (Manual) Eosinophils # (Manual) PT INR APTT D-Dimer Heparin Anti-Xa Level ABG pH POC ABG pCO2 POC ABG pO2 ABG pO2 ABG HCO3 ABG O2 Saturation ABG Base Excess ABG Hemoglobin ABG Oxyhemoglobin ABG Sodium ABG Potassium ABG Chloride ABG Glucose Oxyhemoglobin Carboxyhemoglobin Sodium Potassium Chloride 94.8 L Carbon Dioxide 32 H BUN 22 H Creatinine Glucose 115 H POC Glucose Hemoglobin A1c Lactic Acid Calcium 8.3 L Phosphorus Magnesium Ferritin 2494.0 H Total Bilirubin Direct Bilirubin AST 73 H ALT 121 H Alkaline Phosphatase Lactate Dehydrogenase 835 H C-Reactive Protein 3.40 H Total Protein 6.1 L Albumin 3.0 L Triglycerides Lipase Arterial Blood Glucose Arterial Blood Ionized Calcium Urine WBC (Auto) Coronavirus (PCR) SARS-CoV-2 IgG Ab Crossmatch 05/17/20 05/17/20 05/17/20 05:50 05:50 05:50 WBC RBC Hgb Hct MCV MCH MCHC RDW Lymph % (Auto) Walker % (Auto) Lymph # (Auto) Walker # (Auto) Baso # (Auto) Seg Neutrophils % Seg Neuts % (Manual) Lymphocytes % (Manual) Nucleated RBC % Seg Neutrophils # Seg Neutrophils # Man Lymphocytes # (Manual) Monocytes # (Manual) Eosinophils # (Manual) PT INR APTT D-Dimer 2911.42 H Heparin Anti-Xa Level ABG pH POC ABG pCO2 POC ABG pO2 ABG pO2 ABG HCO3 ABG O2 Saturation ABG Base Excess ABG Hemoglobin ABG Oxyhemoglobin ABG Sodium ABG Potassium ABG Chloride ABG Glucose Oxyhemoglobin Carboxyhemoglobin Sodium 136 L Potassium Chloride 96.0 L Carbon Dioxide 34 H BUN 22 H Creatinine Glucose 140 H POC Glucose Hemoglobin A1c Lactic Acid Calcium Phosphorus Magnesium Ferritin 2082.0 H Total Bilirubin Direct Bilirubin AST ALT 75 H Alkaline Phosphatase Lactate Dehydrogenase 601 H C-Reactive Protein 2.70 H Total Protein Albumin 2.9 L Triglycerides Lipase Arterial Blood Glucose Arterial Blood Ionized Calcium Urine WBC (Auto) Coronavirus (PCR) SARS-CoV-2 IgG Ab Crossmatch 05/17/20 05/18/20 05/20/20 05:50 12:22 08:16 WBC RBC Hgb Hct MCV 98 H MCH 33 H MCHC RDW Lymph % (Auto) 8.0 L Walker % (Auto) Lymph # (Auto) 0.8 L Walker # (Auto) Baso # (Auto) Seg Neutrophils % 89.3 H Seg Neuts % (Manual) Lymphocytes % (Manual) Nucleated RBC % Seg Neutrophils # 8.8 H Seg Neutrophils # Man Lymphocytes # (Manual) Monocytes # (Manual) Eosinophils # (Manual) PT INR APTT D-Dimer 1887.82 H Heparin Anti-Xa Level ABG pH POC ABG pCO2 POC ABG pO2 ABG pO2 ABG HCO3 ABG O2 Saturation ABG Base Excess ABG Hemoglobin ABG Oxyhemoglobin ABG Sodium ABG Potassium ABG Chloride ABG Glucose Oxyhemoglobin Carboxyhemoglobin Sodium Potassium Chloride Carbon Dioxide BUN Creatinine Glucose POC Glucose 178 H Hemoglobin A1c Lactic Acid Calcium Phosphorus Magnesium Ferritin Total Bilirubin Direct Bilirubin AST ALT Alkaline Phosphatase Lactate Dehydrogenase C-Reactive Protein Total Protein Albumin Triglycerides Lipase Arterial Blood Glucose Arterial Blood Ionized Calcium Urine WBC (Auto) Coronavirus (PCR) SARS-CoV-2 IgG Ab Crossmatch 05/20/20 05/20/20 05/21/20 08:16 08:16 21:10 WBC RBC Hgb Hct MCV MCH MCHC RDW Lymph % (Auto) Walker % (Auto) Lymph # (Auto) Walker # (Auto) Baso # (Auto) Seg Neutrophils % Seg Neuts % (Manual) Lymphocytes % (Manual) Nucleated RBC % Seg Neutrophils # Seg Neutrophils # Man Lymphocytes # (Manual) Monocytes # (Manual) Eosinophils # (Manual) PT INR APTT D-Dimer Heparin Anti-Xa Level ABG pH 7.483 H POC ABG pCO2 POC ABG pO2 ABG pO2 50.0 L ABG HCO3 27.0 H ABG O2 Saturation 86.2 L ABG Base Excess 3.7 H ABG Hemoglobin ABG Oxyhemoglobin ABG Sodium ABG Potassium ABG Chloride ABG Glucose Oxyhemoglobin 84.2 L Carboxyhemoglobin Sodium Potassium Chloride Carbon Dioxide BUN Creatinine Glucose POC Glucose Hemoglobin A1c Lactic Acid Calcium Phosphorus Magnesium Ferritin 1960.0 H Total Bilirubin Direct Bilirubin AST ALT Alkaline Phosphatase Lactate Dehydrogenase 705 H C-Reactive Protein 3.10 H Total Protein Albumin Triglycerides Lipase Arterial Blood Glucose Arterial Blood Ionized Calcium Urine WBC (Auto) Coronavirus (PCR) SARS-CoV-2 IgG Ab Crossmatch 05/22/20 05/22/20 05/22/20 04:01 07:53 07:53 WBC 19.2 H RBC Hgb Hct MCV 98 H MCH 34 H MCHC RDW Lymph % (Auto) Walker % (Auto) Lymph # (Auto) Walker # (Auto) Baso # (Auto) Seg Neutrophils % Seg Neuts % (Manual) 96.0 H Lymphocytes % (Manual) 1.0 L Nucleated RBC % Seg Neutrophils # Seg Neutrophils # Man 18.4 H Lymphocytes # (Manual) 0.2 L Monocytes # (Manual) Eosinophils # (Manual) PT INR APTT D-Dimer Heparin Anti-Xa Level ABG pH POC ABG pCO2 53.8 H POC ABG pO2 125.5 H ABG pO2 ABG HCO3 ABG O2 Saturation ABG Base Excess ABG Hemoglobin ABG Oxyhemoglobin ABG Sodium 131.8 L ABG Potassium 4.8 H ABG Chloride 94.0 L ABG Glucose 163 H Oxyhemoglobin Carboxyhemoglobin Sodium 131 L Potassium Chloride 93.4 L Carbon Dioxide BUN 40 H Creatinine Glucose 176 H POC Glucose Hemoglobin A1c Lactic Acid Calcium Phosphorus Magnesium 2.70 H Ferritin Total Bilirubin 1.80 H Direct Bilirubin AST 45 H ALT 116 H Alkaline Phosphatase 181 H Lactate Dehydrogenase C-Reactive Protein Total Protein Albumin 2.6 L Triglycerides Lipase Arterial Blood Glucose 163 H Arterial Blood Ionized Calcium 4.5 L Urine WBC (Auto) Coronavirus (PCR) SARS-CoV-2 IgG Ab Crossmatch 05/23/20 05/24/20 05/24/20 04:17 03:07 04:08 WBC RBC Hgb Hct MCV MCH MCHC RDW Lymph % (Auto) Walker % (Auto) Lymph # (Auto) Walker # (Auto) Baso # (Auto) Seg Neutrophils % Seg Neuts % (Manual) Lymphocytes % (Manual) Nucleated RBC % Seg Neutrophils # Seg Neutrophils # Man Lymphocytes # (Manual) Monocytes # (Manual) Eosinophils # (Manual) PT INR APTT D-Dimer Heparin Anti-Xa Level ABG pH 7.328 L POC ABG pCO2 POC ABG pO2 ABG pO2 72.8 L 73.4 L ABG HCO3 31.0 H 34.0 H ABG O2 Saturation 93.5 L ABG Base Excess 3.5 H 7.7 H ABG Hemoglobin 13.3 L 12.1 L ABG Oxyhemoglobin ABG Sodium ABG Potassium ABG Chloride ABG Glucose Oxyhemoglobin 91.5 L 94.3 L Carboxyhemoglobin Sodium Potassium Chloride Carbon Dioxide BUN Creatinine Glucose POC Glucose 155 H Hemoglobin A1c Lactic Acid Calcium Phosphorus Magnesium Ferritin Total Bilirubin Direct Bilirubin AST ALT Alkaline Phosphatase Lactate Dehydrogenase C-Reactive Protein Total Protein Albumin Triglycerides Lipase Arterial Blood Glucose Arterial Blood Ionized Calcium Urine WBC (Auto) Coronavirus (PCR) SARS-CoV-2 IgG Ab Crossmatch 05/24/20 05/24/20 05/24/20 09:33 12:21 17:52 WBC RBC Hgb Hct MCV MCH MCHC RDW Lymph % (Auto) Walker % (Auto) Lymph # (Auto) Walker # (Auto) Baso # (Auto) Seg Neutrophils % Seg Neuts % (Manual) Lymphocytes % (Manual) Nucleated RBC % Seg Neutrophils # Seg Neutrophils # Man Lymphocytes # (Manual) Monocytes # (Manual) Eosinophils # (Manual) PT INR APTT D-Dimer Heparin Anti-Xa Level ABG pH POC ABG pCO2 POC ABG pO2 ABG pO2 ABG HCO3 ABG O2 Saturation ABG Base Excess ABG Hemoglobin ABG Oxyhemoglobin ABG Sodium ABG Potassium ABG Chloride ABG Glucose Oxyhemoglobin Carboxyhemoglobin Sodium Potassium Chloride Carbon Dioxide 34 H D BUN 28 H Creatinine 0.7 L Glucose 168 H POC Glucose 173 H 164 H Hemoglobin A1c Lactic Acid Calcium Phosphorus Magnesium Ferritin Total Bilirubin Direct Bilirubin AST ALT Alkaline Phosphatase Lactate Dehydrogenase C-Reactive Protein Total Protein Albumin Triglycerides Lipase Arterial Blood Glucose Arterial Blood Ionized Calcium Urine WBC (Auto) Coronavirus (PCR) SARS-CoV-2 IgG Ab Crossmatch 05/24/20 05/25/20 05/25/20 23:47 04:29 05:46 WBC RBC Hgb Hct MCV MCH MCHC RDW Lymph % (Auto) Walker % (Auto) Lymph # (Auto) Walker # (Auto) Baso # (Auto) Seg Neutrophils % Seg Neuts % (Manual) Lymphocytes % (Manual) Nucleated RBC % Seg Neutrophils # Seg Neutrophils # Man Lymphocytes # (Manual) Monocytes # (Manual) Eosinophils # (Manual) PT INR APTT D-Dimer Heparin Anti-Xa Level ABG pH POC ABG pCO2 68.6 H POC ABG pO2 ABG pO2 ABG HCO3 ABG O2 Saturation ABG Base Excess ABG Hemoglobin ABG Oxyhemoglobin ABG Sodium ABG Potassium 4.7 H ABG Chloride ABG Glucose 226 H Oxyhemoglobin Carboxyhemoglobin Sodium Potassium Chloride Carbon Dioxide BUN Creatinine Glucose POC Glucose 171 H 201 H Hemoglobin A1c Lactic Acid Calcium Phosphorus Magnesium Ferritin Total Bilirubin Direct Bilirubin AST ALT Alkaline Phosphatase Lactate Dehydrogenase C-Reactive Protein Total Protein Albumin Triglycerides Lipase Arterial Blood Glucose 226 H Arterial Blood Ionized Calcium Urine WBC (Auto) Coronavirus (PCR) SARS-CoV-2 IgG Ab Crossmatch 05/25/20 05/25/20 05/25/20 08:37 08:37 12:38 WBC 12.0 H RBC 3.64 L Hgb Hct MCV 99 H MCH 33 H MCHC RDW Lymph % (Auto) Walker % (Auto) Lymph # (Auto) Walker # (Auto) Baso # (Auto) Seg Neutrophils % Seg Neuts % (Manual) Lymphocytes % (Manual) Nucleated RBC % Seg Neutrophils # Seg Neutrophils # Man Lymphocytes # (Manual) Monocytes # (Manual) Eosinophils # (Manual) PT INR APTT D-Dimer Heparin Anti-Xa Level ABG pH POC ABG pCO2 POC ABG pO2 ABG pO2 ABG HCO3 ABG O2 Saturation ABG Base Excess ABG Hemoglobin ABG Oxyhemoglobin ABG Sodium ABG Potassium ABG Chloride ABG Glucose Oxyhemoglobin Carboxyhemoglobin Sodium Potassium Chloride 97.3 L Carbon Dioxide 35 H BUN 25 H Creatinine 0.7 L Glucose 191 H POC Glucose 182 H Hemoglobin A1c Lactic Acid Calcium Phosphorus Magnesium Ferritin Total Bilirubin Direct Bilirubin AST ALT Alkaline Phosphatase Lactate Dehydrogenase C-Reactive Protein Total Protein Albumin Triglycerides Lipase Arterial Blood Glucose Arterial Blood Ionized Calcium Urine WBC (Auto) Coronavirus (PCR) SARS-CoV-2 IgG Ab Crossmatch 05/25/20 05/26/20 05/26/20 18:16 00:06 04:50 WBC RBC Hgb Hct MCV MCH MCHC RDW Lymph % (Auto) Walker % (Auto) Lymph # (Auto) Walker # (Auto) Baso # (Auto) Seg Neutrophils % Seg Neuts % (Manual) Lymphocytes % (Manual) Nucleated RBC % Seg Neutrophils # Seg Neutrophils # Man Lymphocytes # (Manual) Monocytes # (Manual) Eosinophils # (Manual) PT INR APTT D-Dimer Heparin Anti-Xa Level ABG pH POC ABG pCO2 POC ABG pO2 ABG pO2 221.5 H ABG HCO3 40.4 H ABG O2 Saturation 99.3 H ABG Base Excess 12.8 H ABG Hemoglobin 10.4 L ABG Oxyhemoglobin ABG Sodium ABG Potassium ABG Chloride ABG Glucose Oxyhemoglobin Carboxyhemoglobin Sodium Potassium Chloride Carbon Dioxide BUN Creatinine Glucose POC Glucose 176 H 152 H Hemoglobin A1c Lactic Acid Calcium Phosphorus Magnesium Ferritin Total Bilirubin Direct Bilirubin AST ALT Alkaline Phosphatase Lactate Dehydrogenase C-Reactive Protein Total Protein Albumin Triglycerides Lipase Arterial Blood Glucose Arterial Blood Ionized Calcium Urine WBC (Auto) Coronavirus (PCR) SARS-CoV-2 IgG Ab Crossmatch 05/26/20 05/26/20 05/26/20 06:11 07:51 07:51 WBC 13.4 H RBC 3.64 L Hgb Hct MCV 98 H MCH 33 H MCHC RDW Lymph % (Auto) Walker % (Auto) Lymph # (Auto) Walker # (Auto) Baso # (Auto) Seg Neutrophils % Seg Neuts % (Manual) Lymphocytes % (Manual) Nucleated RBC % Seg Neutrophils # Seg Neutrophils # Man Lymphocytes # (Manual) Monocytes # (Manual) Eosinophils # (Manual) PT INR APTT D-Dimer Heparin Anti-Xa Level ABG pH POC ABG pCO2 POC ABG pO2 ABG pO2 ABG HCO3 ABG O2 Saturation ABG Base Excess ABG Hemoglobin ABG Oxyhemoglobin ABG Sodium ABG Potassium ABG Chloride ABG Glucose Oxyhemoglobin Carboxyhemoglobin Sodium Potassium Chloride 96.6 L Carbon Dioxide 39 H BUN 29 H Creatinine 0.7 L Glucose 174 H POC Glucose 165 H Hemoglobin A1c Lactic Acid Calcium Phosphorus Magnesium Ferritin Total Bilirubin Direct Bilirubin AST ALT Alkaline Phosphatase Lactate Dehydrogenase C-Reactive Protein Total Protein Albumin Triglycerides Lipase Arterial Blood Glucose Arterial Blood Ionized Calcium Urine WBC (Auto) Coronavirus (PCR) SARS-CoV-2 IgG Ab Crossmatch 05/26/20 05/27/20 05/27/20 23:23 03:43 05:29 WBC RBC Hgb Hct MCV MCH MCHC RDW Lymph % (Auto) Walker % (Auto) Lymph # (Auto) Walker # (Auto) Baso # (Auto) Seg Neutrophils % Seg Neuts % (Manual) Lymphocytes % (Manual) Nucleated RBC % Seg Neutrophils # Seg Neutrophils # Man Lymphocytes # (Manual) Monocytes # (Manual) Eosinophils # (Manual) PT INR APTT D-Dimer Heparin Anti-Xa Level ABG pH 7.480 H POC ABG pCO2 52.4 H POC ABG pO2 61.4 L ABG pO2 ABG HCO3 ABG O2 Saturation ABG Base Excess ABG Hemoglobin ABG Oxyhemoglobin ABG Sodium 134.9 L ABG Potassium ABG Chloride 95.0 L ABG Glucose 221 H Oxyhemoglobin Carboxyhemoglobin Sodium Potassium Chloride Carbon Dioxide BUN Creatinine Glucose POC Glucose 169 H 227 H Hemoglobin A1c Lactic Acid Calcium Phosphorus Magnesium Ferritin Total Bilirubin Direct Bilirubin AST ALT Alkaline Phosphatase Lactate Dehydrogenase C-Reactive Protein Total Protein Albumin Triglycerides Lipase Arterial Blood Glucose 221 H Arterial Blood Ionized Calcium 4.5 L Urine WBC (Auto) Coronavirus (PCR) SARS-CoV-2 IgG Ab Crossmatch 1105/27/20 05/27/20 07:19 12:18 13:50 WBC RBC Hgb Hct MCV MCH MCHC RDW Lymph % (Auto) Walker % (Auto) Lymph # (Auto) Walker # (Auto) Baso # (Auto) Seg Neutrophils % Seg Neuts % (Manual) Lymphocytes % (Manual) Nucleated RBC % Seg Neutrophils # Seg Neutrophils # Man Lymphocytes # (Manual) Monocytes # (Manual) Eosinophils # (Manual) PT INR APTT D-Dimer Heparin Anti-Xa Level ABG pH POC ABG pCO2 POC ABG pO2 ABG pO2 ABG HCO3 ABG O2 Saturation ABG Base Excess ABG Hemoglobin ABG Oxyhemoglobin ABG Sodium ABG Potassium ABG Chloride ABG Glucose Oxyhemoglobin Carboxyhemoglobin Sodium Potassium Chloride Carbon Dioxide BUN Creatinine Glucose POC Glucose 114 H 148 H Hemoglobin A1c Lactic Acid Calcium Phosphorus Magnesium Ferritin Total Bilirubin Direct Bilirubin AST ALT Alkaline Phosphatase Lactate Dehydrogenase C-Reactive Protein Total Protein Albumin Triglycerides 247 H Lipase Arterial Blood Glucose Arterial Blood Ionized Calcium Urine WBC (Auto) Coronavirus (PCR) SARS-CoV-2 IgG Ab Crossmatch 05/28/20 05/28/20 05/28/20 00:13 04:16 05:22 WBC RBC Hgb Hct MCV MCH MCHC RDW Lymph % (Auto) Walker % (Auto) Lymph # (Auto) Walker # (Auto) Baso # (Auto) Seg Neutrophils % Seg Neuts % (Manual) Lymphocytes % (Manual) Nucleated RBC % Seg Neutrophils # Seg Neutrophils # Man Lymphocytes # (Manual) Monocytes # (Manual) Eosinophils # (Manual) PT INR APTT D-Dimer Heparin Anti-Xa Level ABG pH POC ABG pCO2 64.4 H POC ABG pO2 60.5 L ABG pO2 ABG HCO3 ABG O2 Saturation ABG Base Excess ABG Hemoglobin ABG Oxyhemoglobin ABG Sodium ABG Potassium ABG Chloride 95.0 L ABG Glucose 209 H Oxyhemoglobin Carboxyhemoglobin Sodium Potassium Chloride Carbon Dioxide BUN Creatinine Glucose POC Glucose 155 H 186 H Hemoglobin A1c Lactic Acid Calcium Phosphorus Magnesium Ferritin Total Bilirubin Direct Bilirubin AST ALT Alkaline Phosphatase Lactate Dehydrogenase C-Reactive Protein Total Protein Albumin Triglycerides Lipase Arterial Blood Glucose 209 H Arterial Blood Ionized Calcium Urine WBC (Auto) Coronavirus (PCR) SARS-CoV-2 IgG Ab Crossmatch 05/28/20 05/28/20 05/29/20 12:45 17:39 00:37 WBC RBC Hgb Hct MCV MCH MCHC RDW Lymph % (Auto) Walker % (Auto) Lymph # (Auto) Walker # (Auto) Baso # (Auto) Seg Neutrophils % Seg Neuts % (Manual) Lymphocytes % (Manual) Nucleated RBC % Seg Neutrophils # Seg Neutrophils # Man Lymphocytes # (Manual) Monocytes # (Manual) Eosinophils # (Manual) PT INR APTT D-Dimer Heparin Anti-Xa Level ABG pH POC ABG pCO2 POC ABG pO2 ABG pO2 ABG HCO3 ABG O2 Saturation ABG Base Excess ABG Hemoglobin ABG Oxyhemoglobin ABG Sodium ABG Potassium ABG Chloride ABG Glucose Oxyhemoglobin Carboxyhemoglobin Sodium Potassium Chloride Carbon Dioxide BUN Creatinine Glucose POC Glucose 143 H 164 H 221 H Hemoglobin A1c Lactic Acid Calcium Phosphorus Magnesium Ferritin Total Bilirubin Direct Bilirubin AST ALT Alkaline Phosphatase Lactate Dehydrogenase C-Reactive Protein Total Protein Albumin Triglycerides Lipase Arterial Blood Glucose Arterial Blood Ionized Calcium Urine WBC (Auto) Coronavirus (PCR) SARS-CoV-2 IgG Ab Crossmatch 05/29/20 05/29/20 05/29/20 04:15 05:33 12:34 WBC RBC Hgb Hct MCV MCH MCHC RDW Lymph % (Auto) Walker % (Auto) Lymph # (Auto) Walker # (Auto) Baso # (Auto) Seg Neutrophils % Seg Neuts % (Manual) Lymphocytes % (Manual) Nucleated RBC % Seg Neutrophils # Seg Neutrophils # Man Lymphocytes # (Manual) Monocytes # (Manual) Eosinophils # (Manual) PT INR APTT D-Dimer Heparin Anti-Xa Level ABG pH 7.463 H POC ABG pCO2 56.3 H POC ABG pO2 81.2 L ABG pO2 ABG HCO3 ABG O2 Saturation ABG Base Excess ABG Hemoglobin ABG Oxyhemoglobin ABG Sodium ABG Potassium ABG Chloride 96.0 L ABG Glucose 194 H Oxyhemoglobin Carboxyhemoglobin Sodium Potassium Chloride Carbon Dioxide BUN Creatinine Glucose POC Glucose 133 H 221 H Hemoglobin A1c Lactic Acid Calcium Phosphorus Magnesium Ferritin Total Bilirubin Direct Bilirubin AST ALT Alkaline Phosphatase Lactate Dehydrogenase C-Reactive Protein Total Protein Albumin Triglycerides Lipase Arterial Blood Glucose 194 H Arterial Blood Ionized Calcium 4.5 L Urine WBC (Auto) Coronavirus (PCR) SARS-CoV-2 IgG Ab Crossmatch 05/29/20 05/30/20 05/30/20 18:07 00:12 05:38 WBC RBC Hgb Hct MCV MCH MCHC RDW Lymph % (Auto) Walker % (Auto) Lymph # (Auto) Walker # (Auto) Baso # (Auto) Seg Neutrophils % Seg Neuts % (Manual) Lymphocytes % (Manual) Nucleated RBC % Seg Neutrophils # Seg Neutrophils # Man Lymphocytes # (Manual) Monocytes # (Manual) Eosinophils # (Manual) PT INR APTT D-Dimer Heparin Anti-Xa Level ABG pH POC ABG pCO2 POC ABG pO2 ABG pO2 ABG HCO3 ABG O2 Saturation ABG Base Excess ABG Hemoglobin ABG Oxyhemoglobin ABG Sodium ABG Potassium ABG Chloride ABG Glucose Oxyhemoglobin Carboxyhemoglobin Sodium Potassium Chloride Carbon Dioxide BUN Creatinine Glucose POC Glucose 162 H 190 H 208 H Hemoglobin A1c Lactic Acid Calcium Phosphorus Magnesium Ferritin Total Bilirubin Direct Bilirubin AST ALT Alkaline Phosphatase Lactate Dehydrogenase C-Reactive Protein Total Protein Albumin Triglycerides Lipase Arterial Blood Glucose Arterial Blood Ionized Calcium Urine WBC (Auto) Coronavirus (PCR) SARS-CoV-2 IgG Ab Crossmatch 05/30/20 05/30/20 05/30/20 09:30 11:35 11:54 WBC 12.4 H RBC 3.48 L Hgb 11.3 L Hct 34.6 L MCV 99 H MCH 33 H MCHC RDW Lymph % (Auto) Walker % (Auto) Lymph # (Auto) Walker # (Auto) Baso # (Auto) Seg Neutrophils % Seg Neuts % (Manual) Lymphocytes % (Manual) Nucleated RBC % Seg Neutrophils # Seg Neutrophils # Man Lymphocytes # (Manual) Monocytes # (Manual) Eosinophils # (Manual) PT INR APTT D-Dimer Heparin Anti-Xa Level ABG pH 7.455 H POC ABG pCO2 57.5 H POC ABG pO2 81.5 L ABG pO2 ABG HCO3 ABG O2 Saturation ABG Base Excess ABG Hemoglobin ABG Oxyhemoglobin ABG Sodium ABG Potassium ABG Chloride 96.0 L ABG Glucose 204 H Oxyhemoglobin Carboxyhemoglobin Sodium Potassium Chloride Carbon Dioxide BUN Creatinine Glucose POC Glucose 183 H Hemoglobin A1c Lactic Acid Calcium Phosphorus Magnesium Ferritin Total Bilirubin Direct Bilirubin AST ALT Alkaline Phosphatase Lactate Dehydrogenase C-Reactive Protein Total Protein Albumin Triglycerides Lipase Arterial Blood Glucose 204 H Arterial Blood Ionized Calcium Urine WBC (Auto) Coronavirus (PCR) SARS-CoV-2 IgG Ab Crossmatch 05/30/20 05/31/20 05/31/20 18:01 00:10 03:22 WBC RBC Hgb Hct MCV MCH MCHC RDW Lymph % (Auto) Walker % (Auto) Lymph # (Auto) Walker # (Auto) Baso # (Auto) Seg Neutrophils % Seg Neuts % (Manual) Lymphocytes % (Manual) Nucleated RBC % Seg Neutrophils # Seg Neutrophils # Man Lymphocytes # (Manual) Monocytes # (Manual) Eosinophils # (Manual) PT INR APTT D-Dimer Heparin Anti-Xa Level ABG pH POC ABG pCO2 60.4 H POC ABG pO2 71.5 L ABG pO2 ABG HCO3 ABG O2 Saturation ABG Base Excess ABG Hemoglobin ABG Oxyhemoglobin ABG Sodium ABG Potassium ABG Chloride 96.0 L ABG Glucose 169 H Oxyhemoglobin Carboxyhemoglobin Sodium Potassium Chloride Carbon Dioxide BUN Creatinine Glucose POC Glucose 184 H 135 H Hemoglobin A1c Lactic Acid Calcium Phosphorus Magnesium Ferritin Total Bilirubin Direct Bilirubin AST ALT Alkaline Phosphatase Lactate Dehydrogenase C-Reactive Protein Total Protein Albumin Triglycerides Lipase Arterial Blood Glucose 169 H Arterial Blood Ionized Calcium 4.5 L Urine WBC (Auto) Coronavirus (PCR) SARS-CoV-2 IgG Ab Crossmatch 05/31/20 05/31/20 05/31/20 05:24 11:18 14:41 WBC RBC Hgb Hct MCV MCH MCHC RDW Lymph % (Auto) Walker % (Auto) Lymph # (Auto) Walker # (Auto) Baso # (Auto) Seg Neutrophils % Seg Neuts % (Manual) Lymphocytes % (Manual) Nucleated RBC % Seg Neutrophils # Seg Neutrophils # Man Lymphocytes # (Manual) Monocytes # (Manual) Eosinophils # (Manual) PT INR APTT D-Dimer Heparin Anti-Xa Level ABG pH POC ABG pCO2 POC ABG pO2 ABG pO2 ABG HCO3 ABG O2 Saturation ABG Base Excess ABG Hemoglobin ABG Oxyhemoglobin ABG Sodium ABG Potassium ABG Chloride ABG Glucose Oxyhemoglobin Carboxyhemoglobin Sodium Potassium Chloride 96.8 L Carbon Dioxide 37 H BUN 31 H Creatinine 0.6 L Glucose 213 H POC Glucose 164 H 208 H Hemoglobin A1c Lactic Acid Calcium Phosphorus Magnesium Ferritin Total Bilirubin Direct Bilirubin AST ALT Alkaline Phosphatase Lactate Dehydrogenase C-Reactive Protein Total Protein Albumin Triglycerides Lipase Arterial Blood Glucose Arterial Blood Ionized Calcium Urine WBC (Auto) Coronavirus (PCR) SARS-CoV-2 IgG Ab Crossmatch 05/31/20 05/31/20 06/01/20 17:37 23:47 03:48 WBC RBC Hgb Hct MCV MCH MCHC RDW Lymph % (Auto) Walker % (Auto) Lymph # (Auto) Walker # (Auto) Baso # (Auto) Seg Neutrophils % Seg Neuts % (Manual) Lymphocytes % (Manual) Nucleated RBC % Seg Neutrophils # Seg Neutrophils # Man Lymphocytes # (Manual) Monocytes # (Manual) Eosinophils # (Manual) PT INR APTT D-Dimer Heparin Anti-Xa Level ABG pH POC ABG pCO2 59.7 H POC ABG pO2 73.9 L ABG pO2 ABG HCO3 ABG O2 Saturation ABG Base Excess ABG Hemoglobin ABG Oxyhemoglobin ABG Sodium ABG Potassium ABG Chloride 95.0 L ABG Glucose 256 H Oxyhemoglobin Carboxyhemoglobin Sodium Potassium Chloride Carbon Dioxide BUN Creatinine Glucose POC Glucose 168 H 178 H Hemoglobin A1c Lactic Acid Calcium Phosphorus Magnesium Ferritin Total Bilirubin Direct Bilirubin AST ALT Alkaline Phosphatase Lactate Dehydrogenase C-Reactive Protein Total Protein Albumin Triglycerides Lipase Arterial Blood Glucose 256 H Arterial Blood Ionized Calcium Urine WBC (Auto) Coronavirus (PCR) SARS-CoV-2 IgG Ab Crossmatch 06/01/20 06/01/20 06/01/20 05:01 07:47 07:47 WBC 14.4 H RBC 3.46 L Hgb 11.1 L Hct 34.3 L MCV 99 H MCH MCHC RDW Lymph % (Auto) Walker % (Auto) Lymph # (Auto) Walker # (Auto) Baso # (Auto) Seg Neutrophils % Seg Neuts % (Manual) 86.0 H Lymphocytes % (Manual) 9.0 L Nucleated RBC % Seg Neutrophils # Seg Neutrophils # Man 12.4 H Lymphocytes # (Manual) Monocytes # (Manual) Eosinophils # (Manual) PT INR APTT D-Dimer Heparin Anti-Xa Level ABG pH POC ABG pCO2 POC ABG pO2 ABG pO2 ABG HCO3 ABG O2 Saturation ABG Base Excess ABG Hemoglobin ABG Oxyhemoglobin ABG Sodium ABG Potassium ABG Chloride ABG Glucose Oxyhemoglobin Carboxyhemoglobin Sodium Potassium Chloride Carbon Dioxide BUN Creatinine Glucose POC Glucose 197 H Hemoglobin A1c Lactic Acid Calcium Phosphorus Magnesium Ferritin Total Bilirubin Direct Bilirubin AST ALT Alkaline Phosphatase Lactate Dehydrogenase C-Reactive Protein Total Protein Albumin Triglycerides 244 H Lipase Arterial Blood Glucose Arterial Blood Ionized Calcium Urine WBC (Auto) Coronavirus (PCR) SARS-CoV-2 IgG Ab Crossmatch 06/01/20 06/01/20 06/01/20 07:47 11:46 18:15 WBC RBC Hgb Hct MCV MCH MCHC RDW Lymph % (Auto) Walker % (Auto) Lymph # (Auto) Walker # (Auto) Baso # (Auto) Seg Neutrophils % Seg Neuts % (Manual) Lymphocytes % (Manual) Nucleated RBC % Seg Neutrophils # Seg Neutrophils # Man Lymphocytes # (Manual) Monocytes # (Manual) Eosinophils # (Manual) PT INR APTT D-Dimer Heparin Anti-Xa Level ABG pH POC ABG pCO2 POC ABG pO2 ABG pO2 ABG HCO3 ABG O2 Saturation ABG Base Excess ABG Hemoglobin ABG Oxyhemoglobin ABG Sodium ABG Potassium ABG Chloride ABG Glucose Oxyhemoglobin Carboxyhemoglobin Sodium Potassium Chloride 95.4 L Carbon Dioxide 35 H BUN 30 H Creatinine 0.5 L Glucose 214 H POC Glucose 181 H 221 H Hemoglobin A1c Lactic Acid Calcium Phosphorus Magnesium Ferritin Total Bilirubin Direct Bilirubin AST 54 H ALT 235 H Alkaline Phosphatase Lactate Dehydrogenase C-Reactive Protein Total Protein Albumin 2.9 L Triglycerides Lipase Arterial Blood Glucose Arterial Blood Ionized Calcium Urine WBC (Auto) Coronavirus (PCR) SARS-CoV-2 IgG Ab Crossmatch 06/01/20 06/02/20 06/02/20 23:12 04:00 05:31 WBC RBC Hgb Hct MCV MCH MCHC RDW Lymph % (Auto) Walker % (Auto) Lymph # (Auto) Walker # (Auto) Baso # (Auto) Seg Neutrophils % Seg Neuts % (Manual) Lymphocytes % (Manual) Nucleated RBC % Seg Neutrophils # Seg Neutrophils # Man Lymphocytes # (Manual) Monocytes # (Manual) Eosinophils # (Manual) PT INR APTT D-Dimer Heparin Anti-Xa Level ABG pH 7.465 H POC ABG pCO2 POC ABG pO2 ABG pO2 203.4 H ABG HCO3 41.2 H ABG O2 Saturation 99.3 H ABG Base Excess 15.1 H ABG Hemoglobin 11.5 L ABG Oxyhemoglobin ABG Sodium ABG Potassium ABG Chloride ABG Glucose Oxyhemoglobin Carboxyhemoglobin Sodium Potassium Chloride Carbon Dioxide BUN Creatinine Glucose POC Glucose 197 H 184 H Hemoglobin A1c Lactic Acid Calcium Phosphorus Magnesium Ferritin Total Bilirubin Direct Bilirubin AST ALT Alkaline Phosphatase Lactate Dehydrogenase C-Reactive Protein Total Protein Albumin Triglycerides Lipase Arterial Blood Glucose Arterial Blood Ionized Calcium Urine WBC (Auto) Coronavirus (PCR) SARS-CoV-2 IgG Ab Crossmatch 11/25/20 11/25/20 11/25/20 11:49 18:06 23:00 WBC RBC Hgb Hct MCV MCH MCHC RDW Lymph % (Auto) Walker % (Auto) Lymph # (Auto) Walker # (Auto) Baso # (Auto) Seg Neutrophils % Seg Neuts % (Manual) Lymphocytes % (Manual) Nucleated RBC % Seg Neutrophils # Seg Neutrophils # Man Lymphocytes # (Manual) Monocytes # (Manual) Eosinophils # (Manual) PT INR APTT D-Dimer Heparin Anti-Xa Level ABG pH POC ABG pCO2 POC ABG pO2 ABG pO2 ABG HCO3 ABG O2 Saturation ABG Base Excess ABG Hemoglobin ABG Oxyhemoglobin ABG Sodium ABG Potassium ABG Chloride ABG Glucose Oxyhemoglobin Carboxyhemoglobin Sodium Potassium Chloride Carbon Dioxide BUN Creatinine Glucose POC Glucose 195 H 177 H 228 H Hemoglobin A1c Lactic Acid Calcium Phosphorus Magnesium Ferritin Total Bilirubin Direct Bilirubin AST ALT Alkaline Phosphatase Lactate Dehydrogenase C-Reactive Protein Total Protein Albumin Triglycerides Lipase Arterial Blood Glucose Arterial Blood Ionized Calcium Urine WBC (Auto) Coronavirus (PCR) SARS-CoV-2 IgG Ab Crossmatch 06/03/20 06/03/20 06/03/20 03:58 05:19 12:21 WBC RBC Hgb Hct MCV MCH MCHC RDW Lymph % (Auto) Walker % (Auto) Lymph # (Auto) Walker # (Auto) Baso # (Auto) Seg Neutrophils % Seg Neuts % (Manual) Lymphocytes % (Manual) Nucleated RBC % Seg Neutrophils # Seg Neutrophils # Man Lymphocytes # (Manual) Monocytes # (Manual) Eosinophils # (Manual) PT INR APTT D-Dimer Heparin Anti-Xa Level ABG pH POC ABG pCO2 POC ABG pO2 ABG pO2 171.0 H ABG HCO3 42.8 H ABG O2 Saturation ABG Base Excess 15.6 H ABG Hemoglobin 12.3 L ABG Oxyhemoglobin ABG Sodium ABG Potassium ABG Chloride ABG Glucose Oxyhemoglobin Carboxyhemoglobin Sodium Potassium Chloride Carbon Dioxide BUN Creatinine Glucose POC Glucose 122 H 207 H Hemoglobin A1c Lactic Acid Calcium Phosphorus Magnesium Ferritin Total Bilirubin Direct Bilirubin AST ALT Alkaline Phosphatase Lactate Dehydrogenase C-Reactive Protein Total Protein Albumin Triglycerides Lipase Arterial Blood Glucose Arterial Blood Ionized Calcium Urine WBC (Auto) Coronavirus (PCR) SARS-CoV-2 IgG Ab Crossmatch 06/03/20 06/03/20 06/04/20 17:27 23:50 03:55 WBC RBC Hgb Hct MCV MCH MCHC RDW Lymph % (Auto) Walker % (Auto) Lymph # (Auto) Walker # (Auto) Baso # (Auto) Seg Neutrophils % Seg Neuts % (Manual) Lymphocytes % (Manual) Nucleated RBC % Seg Neutrophils # Seg Neutrophils # Man Lymphocytes # (Manual) Monocytes # (Manual) Eosinophils # (Manual) PT INR APTT D-Dimer Heparin Anti-Xa Level ABG pH POC ABG pCO2 POC ABG pO2 ABG pO2 117.2 H ABG HCO3 42.4 H ABG O2 Saturation ABG Base Excess 15.3 H ABG Hemoglobin 10.5 L ABG Oxyhemoglobin ABG Sodium ABG Potassium ABG Chloride ABG Glucose Oxyhemoglobin Carboxyhemoglobin Sodium Potassium Chloride Carbon Dioxide BUN Creatinine Glucose POC Glucose 157 H 214 H Hemoglobin A1c Lactic Acid Calcium Phosphorus Magnesium Ferritin Total Bilirubin Direct Bilirubin AST ALT Alkaline Phosphatase Lactate Dehydrogenase C-Reactive Protein Total Protein Albumin Triglycerides Lipase Arterial Blood Glucose Arterial Blood Ionized Calcium Urine WBC (Auto) Coronavirus (PCR) SARS-CoV-2 IgG Ab Crossmatch 06/04/20 06/04/20 06/04/20 05:49 11:41 17:30 WBC RBC Hgb Hct MCV MCH MCHC RDW Lymph % (Auto) Walker % (Auto) Lymph # (Auto) Walker # (Auto) Baso # (Auto) Seg Neutrophils % Seg Neuts % (Manual) Lymphocytes % (Manual) Nucleated RBC % Seg Neutrophils # Seg Neutrophils # Man Lymphocytes # (Manual) Monocytes # (Manual) Eosinophils # (Manual) PT INR APTT D-Dimer Heparin Anti-Xa Level ABG pH POC ABG pCO2 POC ABG pO2 ABG pO2 ABG HCO3 ABG O2 Saturation ABG Base Excess ABG Hemoglobin ABG Oxyhemoglobin ABG Sodium ABG Potassium ABG Chloride ABG Glucose Oxyhemoglobin Carboxyhemoglobin Sodium Potassium Chloride Carbon Dioxide BUN Creatinine Glucose POC Glucose 149 H 233 H 156 H Hemoglobin A1c Lactic Acid Calcium Phosphorus Magnesium Ferritin Total Bilirubin Direct Bilirubin AST ALT Alkaline Phosphatase Lactate Dehydrogenase C-Reactive Protein Total Protein Albumin Triglycerides Lipase Arterial Blood Glucose Arterial Blood Ionized Calcium Urine WBC (Auto) Coronavirus (PCR) SARS-CoV-2 IgG Ab Crossmatch 06/04/20 06/04/20 06/04/20 19:01 20:53 23:41 WBC RBC 3.18 L Hgb 10.8 L Hct 31.8 L MCV 100 H MCH 34 H MCHC RDW Lymph % (Auto) Walker % (Auto) Lymph # (Auto) Walker # (Auto) Baso # (Auto) Seg Neutrophils % Seg Neuts % (Manual) 86.0 H Lymphocytes % (Manual) 10.0 L Nucleated RBC % 1.0 H Seg Neutrophils # Seg Neutrophils # Man 8.5 H Lymphocytes # (Manual) 1.0 L Monocytes # (Manual) Eosinophils # (Manual) PT INR APTT D-Dimer Heparin Anti-Xa Level ABG pH POC ABG pCO2 POC ABG pO2 ABG pO2 ABG HCO3 ABG O2 Saturation ABG Base Excess ABG Hemoglobin ABG Oxyhemoglobin ABG Sodium ABG Potassium ABG Chloride ABG Glucose Oxyhemoglobin Carboxyhemoglobin Sodium Potassium 3.4 L D Chloride 96.5 L Carbon Dioxide 41 H* BUN 27 H Creatinine 0.5 L Glucose 173 H POC Glucose 217 H Hemoglobin A1c Lactic Acid Calcium Phosphorus Magnesium Ferritin Total Bilirubin Direct Bilirubin AST ALT Alkaline Phosphatase Lactate Dehydrogenase C-Reactive Protein Total Protein Albumin Triglycerides Lipase Arterial Blood Glucose Arterial Blood Ionized Calcium Urine WBC (Auto) Coronavirus (PCR) SARS-CoV-2 IgG Ab Crossmatch 06/05/20 06/05/20 06/05/20 06:05 11:54 12:35 WBC RBC Hgb Hct MCV MCH MCHC RDW Lymph % (Auto) Walker % (Auto) Lymph # (Auto) Walker # (Auto) Baso # (Auto) Seg Neutrophils % Seg Neuts % (Manual) Lymphocytes % (Manual) Nucleated RBC % Seg Neutrophils # Seg Neutrophils # Man Lymphocytes # (Manual) Monocytes # (Manual) Eosinophils # (Manual) PT INR APTT D-Dimer Heparin Anti-Xa Level ABG pH POC ABG pCO2 POC ABG pO2 ABG pO2 127.9 H ABG HCO3 41.1 H ABG O2 Saturation ABG Base Excess 13.0 H ABG Hemoglobin 13.4 L ABG Oxyhemoglobin ABG Sodium ABG Potassium ABG Chloride ABG Glucose Oxyhemoglobin Carboxyhemoglobin Sodium Potassium Chloride Carbon Dioxide BUN Creatinine Glucose POC Glucose 137 H 211 H Hemoglobin A1c Lactic Acid Calcium Phosphorus Magnesium Ferritin Total Bilirubin Direct Bilirubin AST ALT Alkaline Phosphatase Lactate Dehydrogenase C-Reactive Protein Total Protein Albumin Triglycerides Lipase Arterial Blood Glucose Arterial Blood Ionized Calcium Urine WBC (Auto) Coronavirus (PCR) SARS-CoV-2 IgG Ab Crossmatch 06/05/20 06/05/20 06/06/20 17:03 23:49 04:42 WBC RBC Hgb Hct MCV MCH MCHC RDW Lymph % (Auto) Walker % (Auto) Lymph # (Auto) Walker # (Auto) Baso # (Auto) Seg Neutrophils % Seg Neuts % (Manual) Lymphocytes % (Manual) Nucleated RBC % Seg Neutrophils # Seg Neutrophils # Man Lymphocytes # (Manual) Monocytes # (Manual) Eosinophils # (Manual) PT INR APTT D-Dimer Heparin Anti-Xa Level ABG pH POC ABG pCO2 56.1 H POC ABG pO2 52.5 L ABG pO2 ABG HCO3 ABG O2 Saturation ABG Base Excess ABG Hemoglobin 11.7 L ABG Oxyhemoglobin ABG Sodium ABG Potassium 3.3 L ABG Chloride 95.0 L ABG Glucose 156 H Oxyhemoglobin Carboxyhemoglobin Sodium Potassium Chloride Carbon Dioxide BUN Creatinine Glucose POC Glucose 159 H 194 H Hemoglobin A1c Lactic Acid Calcium Phosphorus Magnesium Ferritin Total Bilirubin Direct Bilirubin AST ALT Alkaline Phosphatase Lactate Dehydrogenase C-Reactive Protein Total Protein Albumin Triglycerides Lipase Arterial Blood Glucose 156 H Arterial Blood Ionized Calcium Urine WBC (Auto) Coronavirus (PCR) SARS-CoV-2 IgG Ab Crossmatch 06/06/20 06/06/20 06/06/20 05:57 12:06 17:38 WBC RBC Hgb Hct MCV MCH MCHC RDW Lymph % (Auto) Walker % (Auto) Lymph # (Auto) Walker # (Auto) Baso # (Auto) Seg Neutrophils % Seg Neuts % (Manual) Lymphocytes % (Manual) Nucleated RBC % Seg Neutrophils # Seg Neutrophils # Man Lymphocytes # (Manual) Monocytes # (Manual) Eosinophils # (Manual) PT INR APTT D-Dimer Heparin Anti-Xa Level ABG pH POC ABG pCO2 POC ABG pO2 ABG pO2 ABG HCO3 ABG O2 Saturation ABG Base Excess ABG Hemoglobin ABG Oxyhemoglobin ABG Sodium ABG Potassium ABG Chloride ABG Glucose Oxyhemoglobin Carboxyhemoglobin Sodium Potassium Chloride Carbon Dioxide BUN Creatinine Glucose POC Glucose 144 H 230 H 162 H Hemoglobin A1c Lactic Acid Calcium Phosphorus Magnesium Ferritin Total Bilirubin Direct Bilirubin AST ALT Alkaline Phosphatase Lactate Dehydrogenase C-Reactive Protein Total Protein Albumin Triglycerides Lipase Arterial Blood Glucose Arterial Blood Ionized Calcium Urine WBC (Auto) Coronavirus (PCR) SARS-CoV-2 IgG Ab Crossmatch 06/06/20 06/07/20 06/07/20 23:50 04:34 06:03 WBC RBC Hgb Hct MCV MCH MCHC RDW Lymph % (Auto) Walker % (Auto) Lymph # (Auto) Walker # (Auto) Baso # (Auto) Seg Neutrophils % Seg Neuts % (Manual) Lymphocytes % (Manual) Nucleated RBC % Seg Neutrophils # Seg Neutrophils # Man Lymphocytes # (Manual) Monocytes # (Manual) Eosinophils # (Manual) PT INR APTT D-Dimer Heparin Anti-Xa Level ABG pH 7.511 H POC ABG pCO2 53.5 H POC ABG pO2 114.5 H ABG pO2 ABG HCO3 ABG O2 Saturation ABG Base Excess ABG Hemoglobin 9.4 L ABG Oxyhemoglobin ABG Sodium 134.5 L ABG Potassium ABG Chloride 94.0 L ABG Glucose 186 H Oxyhemoglobin Carboxyhemoglobin Sodium Potassium Chloride Carbon Dioxide BUN Creatinine Glucose POC Glucose 181 H 155 H Hemoglobin A1c Lactic Acid Calcium Phosphorus Magnesium Ferritin Total Bilirubin Direct Bilirubin AST ALT Alkaline Phosphatase Lactate Dehydrogenase C-Reactive Protein Total Protein Albumin Triglycerides Lipase Arterial Blood Glucose 186 H Arterial Blood Ionized Calcium 4.5 L Urine WBC (Auto) Coronavirus (PCR) SARS-CoV-2 IgG Ab Crossmatch 06/07/20 06/07/20 06/07/20 13:41 14:58 14:58 WBC RBC 2.72 L Hgb 9.3 L Hct 27.2 L MCV 100 H MCH 34 H MCHC RDW Lymph % (Auto) Walker % (Auto) Lymph # (Auto) Walker # (Auto) Baso # (Auto) Seg Neutrophils % Seg Neuts % (Manual) Lymphocytes % (Manual) Nucleated RBC % Seg Neutrophils # Seg Neutrophils # Man Lymphocytes # (Manual) Monocytes # (Manual) Eosinophils # (Manual) PT INR APTT D-Dimer Heparin Anti-Xa Level ABG pH POC ABG pCO2 POC ABG pO2 ABG pO2 ABG HCO3 ABG O2 Saturation ABG Base Excess ABG Hemoglobin ABG Oxyhemoglobin ABG Sodium ABG Potassium ABG Chloride ABG Glucose Oxyhemoglobin Carboxyhemoglobin Sodium Potassium Chloride 93.5 L Carbon Dioxide 39 H BUN 22 H Creatinine 0.4 L Glucose 188 H POC Glucose 201 H Hemoglobin A1c Lactic Acid Calcium Phosphorus Magnesium Ferritin Total Bilirubin Direct Bilirubin AST 61 H ALT 273 H Alkaline Phosphatase Lactate Dehydrogenase C-Reactive Protein Total Protein 5.9 L Albumin 2.7 L Triglycerides Lipase Arterial Blood Glucose Arterial Blood Ionized Calcium Urine WBC (Auto) Coronavirus (PCR) SARS-CoV-2 IgG Ab Crossmatch 06/07/20 06/08/20 06/08/20 23:18 05:31 12:07 WBC RBC Hgb Hct MCV MCH MCHC RDW Lymph % (Auto) Walker % (Auto) Lymph # (Auto) Walker # (Auto) Baso # (Auto) Seg Neutrophils % Seg Neuts % (Manual) Lymphocytes % (Manual) Nucleated RBC % Seg Neutrophils # Seg Neutrophils # Man Lymphocytes # (Manual) Monocytes # (Manual) Eosinophils # (Manual) PT INR APTT D-Dimer Heparin Anti-Xa Level ABG pH POC ABG pCO2 POC ABG pO2 ABG pO2 ABG HCO3 ABG O2 Saturation ABG Base Excess ABG Hemoglobin ABG Oxyhemoglobin ABG Sodium ABG Potassium ABG Chloride ABG Glucose Oxyhemoglobin Carboxyhemoglobin Sodium Potassium Chloride Carbon Dioxide BUN Creatinine Glucose POC Glucose 214 H 129 H 179 H Hemoglobin A1c Lactic Acid Calcium Phosphorus Magnesium Ferritin Total Bilirubin Direct Bilirubin AST ALT Alkaline Phosphatase Lactate Dehydrogenase C-Reactive Protein Total Protein Albumin Triglycerides Lipase Arterial Blood Glucose Arterial Blood Ionized Calcium Urine WBC (Auto) Coronavirus (PCR) SARS-CoV-2 IgG Ab Crossmatch 06/08/20 06/08/20 06/09/20 18:18 23:35 05:42 WBC RBC Hgb Hct MCV MCH MCHC RDW Lymph % (Auto) Walker % (Auto) Lymph # (Auto) Walker # (Auto) Baso # (Auto) Seg Neutrophils % Seg Neuts % (Manual) Lymphocytes % (Manual) Nucleated RBC % Seg Neutrophils # Seg Neutrophils # Man Lymphocytes # (Manual) Monocytes # (Manual) Eosinophils # (Manual) PT INR APTT D-Dimer Heparin Anti-Xa Level ABG pH POC ABG pCO2 POC ABG pO2 ABG pO2 ABG HCO3 ABG O2 Saturation ABG Base Excess ABG Hemoglobin ABG Oxyhemoglobin ABG Sodium ABG Potassium ABG Chloride ABG Glucose Oxyhemoglobin Carboxyhemoglobin Sodium Potassium Chloride Carbon Dioxide BUN Creatinine Glucose POC Glucose 172 H 177 H 137 H Hemoglobin A1c Lactic Acid Calcium Phosphorus Magnesium Ferritin Total Bilirubin Direct Bilirubin AST ALT Alkaline Phosphatase Lactate Dehydrogenase C-Reactive Protein Total Protein Albumin Triglycerides Lipase Arterial Blood Glucose Arterial Blood Ionized Calcium Urine WBC (Auto) Coronavirus (PCR) SARS-CoV-2 IgG Ab Crossmatch 12/02/20 12/02/20 12/02/20 06:20 07:55 07:55 WBC 12.4 H RBC 3.26 L Hgb 11.1 L Hct 33.4 L D MCV 102 H MCH 34 H MCHC RDW Lymph % (Auto) Walker % (Auto) Lymph # (Auto) Walker # (Auto) Baso # (Auto) Seg Neutrophils % Seg Neuts % (Manual) Lymphocytes % (Manual) Nucleated RBC % Seg Neutrophils # Seg Neutrophils # Man Lymphocytes # (Manual) Monocytes # (Manual) Eosinophils # (Manual) PT INR APTT D-Dimer Heparin Anti-Xa Level ABG pH 7.466 H POC ABG pCO2 50.7 H POC ABG pO2 53.0 L ABG pO2 ABG HCO3 ABG O2 Saturation ABG Base Excess ABG Hemoglobin ABG Oxyhemoglobin ABG Sodium ABG Potassium 2.9 L ABG Chloride 93.0 L ABG Glucose 138 H Oxyhemoglobin Carboxyhemoglobin Sodium Potassium 3.0 L Chloride 92.3 L Carbon Dioxide 37 H BUN 21 H Creatinine 0.6 L Glucose 120 H POC Glucose Hemoglobin A1c Lactic Acid Calcium Phosphorus Magnesium Ferritin Total Bilirubin Direct Bilirubin AST ALT Alkaline Phosphatase Lactate Dehydrogenase C-Reactive Protein Total Protein Albumin Triglycerides Lipase Arterial Blood Glucose 138 H Arterial Blood Ionized Calcium 4.5 L Urine WBC (Auto) Coronavirus (PCR) SARS-CoV-2 IgG Ab Crossmatch 06/09/20 06/09/20 06/10/20 11:22 18:32 04:46 WBC RBC Hgb Hct MCV MCH MCHC RDW Lymph % (Auto) Walker % (Auto) Lymph # (Auto) Walker # (Auto) Baso # (Auto) Seg Neutrophils % Seg Neuts % (Manual) Lymphocytes % (Manual) Nucleated RBC % Seg Neutrophils # Seg Neutrophils # Man Lymphocytes # (Manual) Monocytes # (Manual) Eosinophils # (Manual) PT INR APTT D-Dimer Heparin Anti-Xa Level ABG pH 7.501 H POC ABG pCO2 POC ABG pO2 126.5 H ABG pO2 ABG HCO3 ABG O2 Saturation ABG Base Excess ABG Hemoglobin 10.3 L ABG Oxyhemoglobin ABG Sodium ABG Potassium ABG Chloride ABG Glucose 220 H Oxyhemoglobin Carboxyhemoglobin Sodium Potassium Chloride Carbon Dioxide BUN Creatinine Glucose POC Glucose 117 H 121 H Hemoglobin A1c Lactic Acid Calcium Phosphorus Magnesium Ferritin Total Bilirubin Direct Bilirubin AST ALT Alkaline Phosphatase Lactate Dehydrogenase C-Reactive Protein Total Protein Albumin Triglycerides Lipase Arterial Blood Glucose 220 H Arterial Blood Ionized Calcium Urine WBC (Auto) Coronavirus (PCR) SARS-CoV-2 IgG Ab Crossmatch 06/10/20 06/10/20 06/10/20 05:30 09:38 12:03 WBC RBC Hgb Hct MCV MCH MCHC RDW Lymph % (Auto) Walker % (Auto) Lymph # (Auto) Walker # (Auto) Baso # (Auto) Seg Neutrophils % Seg Neuts % (Manual) Lymphocytes % (Manual) Nucleated RBC % Seg Neutrophils # Seg Neutrophils # Man Lymphocytes # (Manual) Monocytes # (Manual) Eosinophils # (Manual) PT INR APTT D-Dimer Heparin Anti-Xa Level ABG pH POC ABG pCO2 POC ABG pO2 ABG pO2 ABG HCO3 ABG O2 Saturation ABG Base Excess ABG Hemoglobin ABG Oxyhemoglobin ABG Sodium ABG Potassium ABG Chloride ABG Glucose Oxyhemoglobin Carboxyhemoglobin Sodium Potassium Chloride Carbon Dioxide BUN Creatinine Glucose POC Glucose 181 H 204 H Hemoglobin A1c Lactic Acid Calcium Phosphorus Magnesium Ferritin Total Bilirubin Direct Bilirubin AST ALT Alkaline Phosphatase Lactate Dehydrogenase C-Reactive Protein Total Protein Albumin Triglycerides 738 H Lipase Arterial Blood Glucose Arterial Blood Ionized Calcium Urine WBC (Auto) Coronavirus (PCR) SARS-CoV-2 IgG Ab Crossmatch 06/10/20 06/11/20 06/11/20 17:17 00:04 04:38 WBC RBC Hgb Hct MCV MCH MCHC RDW Lymph % (Auto) Walker % (Auto) Lymph # (Auto) Walker # (Auto) Baso # (Auto) Seg Neutrophils % Seg Neuts % (Manual) Lymphocytes % (Manual) Nucleated RBC % Seg Neutrophils # Seg Neutrophils # Man Lymphocytes # (Manual) Monocytes # (Manual) Eosinophils # (Manual) PT INR APTT D-Dimer Heparin Anti-Xa Level ABG pH 7.479 H POC ABG pCO2 POC ABG pO2 76.7 L ABG pO2 ABG HCO3 ABG O2 Saturation ABG Base Excess ABG Hemoglobin 9.8 L ABG Oxyhemoglobin ABG Sodium 135.8 L ABG Potassium ABG Chloride ABG Glucose 238 H Oxyhemoglobin Carboxyhemoglobin Sodium Potassium Chloride Carbon Dioxide BUN Creatinine Glucose POC Glucose 156 H 178 H Hemoglobin A1c Lactic Acid Calcium Phosphorus Magnesium Ferritin Total Bilirubin Direct Bilirubin AST ALT Alkaline Phosphatase Lactate Dehydrogenase C-Reactive Protein Total Protein Albumin Triglycerides Lipase Arterial Blood Glucose 238 H Arterial Blood Ionized Calcium Urine WBC (Auto) Coronavirus (PCR) SARS-CoV-2 IgG Ab Crossmatch 06/11/20 06/11/20 06/11/20 05:21 06:52 11:50 WBC RBC Hgb Hct MCV MCH MCHC RDW Lymph % (Auto) Walker % (Auto) Lymph # (Auto) Walker # (Auto) Baso # (Auto) Seg Neutrophils % Seg Neuts % (Manual) Lymphocytes % (Manual) Nucleated RBC % Seg Neutrophils # Seg Neutrophils # Man Lymphocytes # (Manual) Monocytes # (Manual) Eosinophils # (Manual) PT INR APTT D-Dimer Heparin Anti-Xa Level ABG pH POC ABG pCO2 POC ABG pO2 ABG pO2 ABG HCO3 ABG O2 Saturation ABG Base Excess ABG Hemoglobin ABG Oxyhemoglobin ABG Sodium ABG Potassium ABG Chloride ABG Glucose Oxyhemoglobin Carboxyhemoglobin Sodium Potassium Chloride Carbon Dioxide BUN Creatinine Glucose POC Glucose 215 H 187 H Hemoglobin A1c Lactic Acid Calcium Phosphorus Magnesium Ferritin Total Bilirubin Direct Bilirubin AST ALT Alkaline Phosphatase Lactate Dehydrogenase C-Reactive Protein Total Protein Albumin Triglycerides 331 H Lipase Arterial Blood Glucose Arterial Blood Ionized Calcium Urine WBC (Auto) Coronavirus (PCR) SARS-CoV-2 IgG Ab Crossmatch 06/11/20 06/11/20 06/12/20 17:49 23:35 04:52 WBC RBC Hgb Hct MCV MCH MCHC RDW Lymph % (Auto) Walker % (Auto) Lymph # (Auto) Walker # (Auto) Baso # (Auto) Seg Neutrophils % Seg Neuts % (Manual) Lymphocytes % (Manual) Nucleated RBC % Seg Neutrophils # Seg Neutrophils # Man Lymphocytes # (Manual) Monocytes # (Manual) Eosinophils # (Manual) PT INR APTT D-Dimer Heparin Anti-Xa Level ABG pH 7.486 H POC ABG pCO2 POC ABG pO2 ABG pO2 ABG HCO3 ABG O2 Saturation ABG Base Excess ABG Hemoglobin 9.4 L ABG Oxyhemoglobin ABG Sodium ABG Potassium 3.2 L ABG Chloride ABG Glucose 209 H Oxyhemoglobin Carboxyhemoglobin Sodium Potassium Chloride Carbon Dioxide BUN Creatinine Glucose POC Glucose 211 H 200 H Hemoglobin A1c Lactic Acid Calcium Phosphorus Magnesium Ferritin Total Bilirubin Direct Bilirubin AST ALT Alkaline Phosphatase Lactate Dehydrogenase C-Reactive Protein Total Protein Albumin Triglycerides Lipase Arterial Blood Glucose 209 H Arterial Blood Ionized Calcium Urine WBC (Auto) Coronavirus (PCR) SARS-CoV-2 IgG Ab Crossmatch 1206/12/20 06/12/20 05:13 11:47 18:33 WBC RBC Hgb Hct MCV MCH MCHC RDW Lymph % (Auto) Walker % (Auto) Lymph # (Auto) Walker # (Auto) Baso # (Auto) Seg Neutrophils % Seg Neuts % (Manual) Lymphocytes % (Manual) Nucleated RBC % Seg Neutrophils # Seg Neutrophils # Man Lymphocytes # (Manual) Monocytes # (Manual) Eosinophils # (Manual) PT INR APTT D-Dimer Heparin Anti-Xa Level ABG pH POC ABG pCO2 POC ABG pO2 ABG pO2 ABG HCO3 ABG O2 Saturation ABG Base Excess ABG Hemoglobin ABG Oxyhemoglobin ABG Sodium ABG Potassium ABG Chloride ABG Glucose Oxyhemoglobin Carboxyhemoglobin Sodium Potassium Chloride Carbon Dioxide BUN Creatinine Glucose POC Glucose 174 H 214 H 194 H Hemoglobin A1c Lactic Acid Calcium Phosphorus Magnesium Ferritin Total Bilirubin Direct Bilirubin AST ALT Alkaline Phosphatase Lactate Dehydrogenase C-Reactive Protein Total Protein Albumin Triglycerides Lipase Arterial Blood Glucose Arterial Blood Ionized Calcium Urine WBC (Auto) Coronavirus (PCR) SARS-CoV-2 IgG Ab Crossmatch 06/12/20 06/13/20 06/13/20 23:49 05:41 12:30 WBC RBC Hgb Hct MCV MCH MCHC RDW Lymph % (Auto) Walker % (Auto) Lymph # (Auto) Walker # (Auto) Baso # (Auto) Seg Neutrophils % Seg Neuts % (Manual) Lymphocytes % (Manual) Nucleated RBC % Seg Neutrophils # Seg Neutrophils # Man Lymphocytes # (Manual) Monocytes # (Manual) Eosinophils # (Manual) PT INR APTT D-Dimer Heparin Anti-Xa Level ABG pH POC ABG pCO2 POC ABG pO2 ABG pO2 ABG HCO3 ABG O2 Saturation ABG Base Excess ABG Hemoglobin ABG Oxyhemoglobin ABG Sodium ABG Potassium ABG Chloride ABG Glucose Oxyhemoglobin Carboxyhemoglobin Sodium Potassium Chloride Carbon Dioxide BUN Creatinine Glucose POC Glucose 160 H 150 H 181 H Hemoglobin A1c Lactic Acid Calcium Phosphorus Magnesium Ferritin Total Bilirubin Direct Bilirubin AST ALT Alkaline Phosphatase Lactate Dehydrogenase C-Reactive Protein Total Protein Albumin Triglycerides Lipase Arterial Blood Glucose Arterial Blood Ionized Calcium Urine WBC (Auto) Coronavirus (PCR) SARS-CoV-2 IgG Ab Crossmatch 06/13/20 06/13/20 06/13/20 14:14 17:48 23:27 WBC 12.8 H RBC 2.33 L Hgb 8.0 L Hct 23.3 L MCV 100 H MCH 34 H MCHC RDW 15.7 H Lymph % (Auto) Walker % (Auto) Lymph # (Auto) Walker # (Auto) Baso # (Auto) Seg Neutrophils % Seg Neuts % (Manual) 85.0 H Lymphocytes % (Manual) 10.0 L Nucleated RBC % Seg Neutrophils # Seg Neutrophils # Man 10.9 H Lymphocytes # (Manual) Monocytes # (Manual) Eosinophils # (Manual) PT INR APTT D-Dimer Heparin Anti-Xa Level ABG pH POC ABG pCO2 POC ABG pO2 ABG pO2 ABG HCO3 ABG O2 Saturation ABG Base Excess ABG Hemoglobin ABG Oxyhemoglobin ABG Sodium ABG Potassium ABG Chloride ABG Glucose Oxyhemoglobin Carboxyhemoglobin Sodium Potassium Chloride Carbon Dioxide BUN Creatinine Glucose POC Glucose 173 H 154 H Hemoglobin A1c Lactic Acid Calcium Phosphorus Magnesium Ferritin Total Bilirubin Direct Bilirubin AST ALT Alkaline Phosphatase Lactate Dehydrogenase C-Reactive Protein Total Protein Albumin Triglycerides Lipase Arterial Blood Glucose Arterial Blood Ionized Calcium Urine WBC (Auto) Coronavirus (PCR) SARS-CoV-2 IgG Ab Crossmatch 06/14/20 06/14/20 06/14/20 03:58 05:21 07:15 WBC 26.2 H RBC 2.97 L Hgb 9.7 L Hct 29.9 L D MCV 101 H MCH 33 H MCHC RDW 15.3 H Lymph % (Auto) Walker % (Auto) Lymph # (Auto) Walker # (Auto) Baso # (Auto) Seg Neutrophils % Seg Neuts % (Manual) 79.0 H Lymphocytes % (Manual) 5.0 L Nucleated RBC % 3.0 H Seg Neutrophils # Seg Neutrophils # Man 20.7 H Lymphocytes # (Manual) Monocytes # (Manual) 1.3 H Eosinophils # (Manual) PT INR APTT D-Dimer Heparin Anti-Xa Level ABG pH POC ABG pCO2 51.5 H POC ABG pO2 70.0 L ABG pO2 ABG HCO3 ABG O2 Saturation ABG Base Excess ABG Hemoglobin 10.1 L ABG Oxyhemoglobin ABG Sodium 131.5 L ABG Potassium 3.1 L ABG Chloride 93.0 L ABG Glucose 188 H Oxyhemoglobin Carboxyhemoglobin Sodium Potassium Chloride Carbon Dioxide BUN Creatinine Glucose POC Glucose 147 H Hemoglobin A1c Lactic Acid Calcium Phosphorus Magnesium Ferritin Total Bilirubin Direct Bilirubin AST ALT Alkaline Phosphatase Lactate Dehydrogenase C-Reactive Protein Total Protein Albumin Triglycerides Lipase Arterial Blood Glucose 188 H Arterial Blood Ionized Calcium Urine WBC (Auto) Coronavirus (PCR) SARS-CoV-2 IgG Ab Crossmatch 06/14/20 06/14/20 06/14/20 07:15 11:30 11:50 WBC RBC Hgb Hct MCV MCH MCHC RDW Lymph % (Auto) Walker % (Auto) Lymph # (Auto) Walker # (Auto) Baso # (Auto) Seg Neutrophils % Seg Neuts % (Manual) Lymphocytes % (Manual) Nucleated RBC % Seg Neutrophils # Seg Neutrophils # Man Lymphocytes # (Manual) Monocytes # (Manual) Eosinophils # (Manual) PT INR APTT D-Dimer Heparin Anti-Xa Level ABG pH POC ABG pCO2 POC ABG pO2 ABG pO2 ABG HCO3 ABG O2 Saturation ABG Base Excess ABG Hemoglobin ABG Oxyhemoglobin ABG Sodium ABG Potassium ABG Chloride ABG Glucose Oxyhemoglobin Carboxyhemoglobin Sodium 135 L Potassium 3.5 L Chloride 90.4 L Carbon Dioxide 38 H BUN Creatinine 0.5 L Glucose 190 H POC Glucose 176 H Hemoglobin A1c Lactic Acid Calcium Phosphorus Magnesium Ferritin 1496.0 H Total Bilirubin Direct Bilirubin AST ALT 81 H Alkaline Phosphatase Lactate Dehydrogenase C-Reactive Protein Total Protein Albumin 2.9 L Triglycerides Lipase Arterial Blood Glucose Arterial Blood Ionized Calcium Urine WBC (Auto) Coronavirus (PCR) SARS-CoV-2 IgG Ab Crossmatch 06/14/20 06/15/20 06/15/20 23:31 04:00 05:00 WBC RBC Hgb Hct MCV MCH MCHC RDW Lymph % (Auto) Walker % (Auto) Lymph # (Auto) Walker # (Auto) Baso # (Auto) Seg Neutrophils % Seg Neuts % (Manual) Lymphocytes % (Manual) Nucleated RBC % Seg Neutrophils # Seg Neutrophils # Man Lymphocytes # (Manual) Monocytes # (Manual) Eosinophils # (Manual) PT INR APTT D-Dimer Heparin Anti-Xa Level ABG pH POC ABG pCO2 POC ABG pO2 ABG pO2 ABG HCO3 ABG O2 Saturation ABG Base Excess ABG Hemoglobin ABG Oxyhemoglobin ABG Sodium ABG Potassium ABG Chloride ABG Glucose Oxyhemoglobin Carboxyhemoglobin Sodium 133 L Potassium Chloride 91.1 L Carbon Dioxide 34 H BUN Creatinine 0.4 L Glucose 159 H POC Glucose 200 H Hemoglobin A1c Lactic Acid Calcium Phosphorus Magnesium Ferritin Total Bilirubin 2.00 H Direct Bilirubin AST 47 H ALT 77 H Alkaline Phosphatase Lactate Dehydrogenase C-Reactive Protein Total Protein Albumin 2.6 L Triglycerides 152 H Lipase Arterial Blood Glucose Arterial Blood Ionized Calcium Urine WBC (Auto) Coronavirus (PCR) SARS-CoV-2 IgG Ab Crossmatch 06/15/20 06/15/20 06/15/20 05:35 06:27 11:38 WBC RBC Hgb Hct MCV MCH MCHC RDW Lymph % (Auto) Walker % (Auto) Lymph # (Auto) Walker # (Auto) Baso # (Auto) Seg Neutrophils % Seg Neuts % (Manual) Lymphocytes % (Manual) Nucleated RBC % Seg Neutrophils # Seg Neutrophils # Man Lymphocytes # (Manual) Monocytes # (Manual) Eosinophils # (Manual) PT INR APTT D-Dimer Heparin Anti-Xa Level ABG pH POC ABG pCO2 61.0 H POC ABG pO2 67.9 L ABG pO2 ABG HCO3 ABG O2 Saturation ABG Base Excess ABG Hemoglobin 10.4 L ABG Oxyhemoglobin ABG Sodium 132.7 L ABG Potassium 3.3 L ABG Chloride 92.0 L ABG Glucose 158 H Oxyhemoglobin Carboxyhemoglobin Sodium Potassium Chloride Carbon Dioxide BUN Creatinine Glucose POC Glucose 148 H 197 H Hemoglobin A1c Lactic Acid Calcium Phosphorus Magnesium Ferritin Total Bilirubin Direct Bilirubin AST ALT Alkaline Phosphatase Lactate Dehydrogenase C-Reactive Protein Total Protein Albumin Triglycerides Lipase Arterial Blood Glucose 158 H Arterial Blood Ionized Calcium Urine WBC (Auto) Coronavirus (PCR) SARS-CoV-2 IgG Ab Crossmatch 06/15/20 06/15/20 06/16/20 17:29 Unknown 00:01 WBC 20.7 H RBC 2.57 L Hgb 8.9 L Hct 25.8 L MCV 101 H MCH 35 H MCHC 35 H RDW 16.0 H Lymph % (Auto) Walker % (Auto) Lymph # (Auto) Walker # (Auto) Baso # (Auto) Seg Neutrophils % Seg Neuts % (Manual) 83.0 H Lymphocytes % (Manual) 8.0 L Nucleated RBC % Seg Neutrophils # Seg Neutrophils # Man 17.2 H Lymphocytes # (Manual) Monocytes # (Manual) 1.2 H Eosinophils # (Manual) PT INR APTT D-Dimer Heparin Anti-Xa Level ABG pH POC ABG pCO2 POC ABG pO2 ABG pO2 ABG HCO3 ABG O2 Saturation ABG Base Excess ABG Hemoglobin ABG Oxyhemoglobin ABG Sodium ABG Potassium ABG Chloride ABG Glucose Oxyhemoglobin Carboxyhemoglobin Sodium Potassium Chloride Carbon Dioxide BUN Creatinine Glucose POC Glucose 231 H 257 H Hemoglobin A1c Lactic Acid Calcium Phosphorus Magnesium Ferritin Total Bilirubin Direct Bilirubin AST ALT Alkaline Phosphatase Lactate Dehydrogenase C-Reactive Protein Total Protein Albumin Triglycerides Lipase Arterial Blood Glucose Arterial Blood Ionized Calcium Urine WBC (Auto) Coronavirus (PCR) SARS-CoV-2 IgG Ab Crossmatch 06/16/20 06/16/20 06/16/20 04:00 04:00 05:22 WBC 13.8 H RBC 2.03 L Hgb 7.6 L Hct 20.7 L MCV 102 H MCH 37 H MCHC 37 H RDW 16.2 H Lymph % (Auto) 4.4 L Walker % (Auto) Lymph # (Auto) 0.6 L Walker # (Auto) Baso # (Auto) Seg Neutrophils % Seg Neuts % (Manual) Lymphocytes % (Manual) Nucleated RBC % Seg Neutrophils # 12.7 H Seg Neutrophils # Man Lymphocytes # (Manual) Monocytes # (Manual) Eosinophils # (Manual) PT INR APTT D-Dimer Heparin Anti-Xa Level ABG pH POC ABG pCO2 POC ABG pO2 ABG pO2 ABG HCO3 ABG O2 Saturation ABG Base Excess ABG Hemoglobin ABG Oxyhemoglobin ABG Sodium ABG Potassium ABG Chloride ABG Glucose Oxyhemoglobin Carboxyhemoglobin Sodium 130 L Potassium Chloride 88.9 L Carbon Dioxide 36 H BUN Creatinine 0.3 L Glucose 276 H POC Glucose 250 H Hemoglobin A1c Lactic Acid Calcium Phosphorus Magnesium Ferritin Total Bilirubin Direct Bilirubin AST ALT Alkaline Phosphatase Lactate Dehydrogenase C-Reactive Protein Total Protein Albumin Triglycerides Lipase Arterial Blood Glucose Arterial Blood Ionized Calcium Urine WBC (Auto) Coronavirus (PCR) SARS-CoV-2 IgG Ab Crossmatch 06/16/20 06/16/20 06/17/20 12:44 18:18 00:39 WBC RBC Hgb Hct MCV MCH MCHC RDW Lymph % (Auto) Walker % (Auto) Lymph # (Auto) Walker # (Auto) Baso # (Auto) Seg Neutrophils % Seg Neuts % (Manual) Lymphocytes % (Manual) Nucleated RBC % Seg Neutrophils # Seg Neutrophils # Man Lymphocytes # (Manual) Monocytes # (Manual) Eosinophils # (Manual) PT INR APTT D-Dimer Heparin Anti-Xa Level ABG pH POC ABG pCO2 POC ABG pO2 ABG pO2 ABG HCO3 ABG O2 Saturation ABG Base Excess ABG Hemoglobin ABG Oxyhemoglobin ABG Sodium ABG Potassium ABG Chloride ABG Glucose Oxyhemoglobin Carboxyhemoglobin Sodium Potassium Chloride Carbon Dioxide BUN Creatinine Glucose POC Glucose 279 H 239 H 247 H Hemoglobin A1c Lactic Acid Calcium Phosphorus Magnesium Ferritin Total Bilirubin Direct Bilirubin AST ALT Alkaline Phosphatase Lactate Dehydrogenase C-Reactive Protein Total Protein Albumin Triglycerides Lipase Arterial Blood Glucose Arterial Blood Ionized Calcium Urine WBC (Auto) Coronavirus (PCR) SARS-CoV-2 IgG Ab Crossmatch 06/17/20 06/17/20 06/17/20 03:40 04:08 10:54 WBC RBC Hgb Hct MCV MCH MCHC RDW Lymph % (Auto) Walker % (Auto) Lymph # (Auto) Walker # (Auto) Baso # (Auto) Seg Neutrophils % Seg Neuts % (Manual) Lymphocytes % (Manual) Nucleated RBC % Seg Neutrophils # Seg Neutrophils # Man Lymphocytes # (Manual) Monocytes # (Manual) Eosinophils # (Manual) PT INR APTT D-Dimer Heparin Anti-Xa Level ABG pH POC ABG pCO2 65.7 H POC ABG pO2 ABG pO2 ABG HCO3 ABG O2 Saturation ABG Base Excess ABG Hemoglobin 11.9 L ABG Oxyhemoglobin ABG Sodium ABG Potassium ABG Chloride 93.0 L ABG Glucose 244 H Oxyhemoglobin Carboxyhemoglobin Sodium Potassium Chloride Carbon Dioxide BUN Creatinine Glucose POC Glucose 221 H 248 H Hemoglobin A1c Lactic Acid Calcium Phosphorus Magnesium Ferritin Total Bilirubin Direct Bilirubin AST ALT Alkaline Phosphatase Lactate Dehydrogenase C-Reactive Protein Total Protein Albumin Triglycerides Lipase Arterial Blood Glucose 244 H Arterial Blood Ionized Calcium Urine WBC (Auto) Coronavirus (PCR) SARS-CoV-2 IgG Ab Crossmatch 06/17/20 06/17/20 06/17/20 17:47 23:11 23:29 WBC RBC Hgb Hct MCV MCH MCHC RDW Lymph % (Auto) Walker % (Auto) Lymph # (Auto) Walker # (Auto) Baso # (Auto) Seg Neutrophils % Seg Neuts % (Manual) Lymphocytes % (Manual) Nucleated RBC % Seg Neutrophils # Seg Neutrophils # Man Lymphocytes # (Manual) Monocytes # (Manual) Eosinophils # (Manual) PT INR APTT D-Dimer Heparin Anti-Xa Level ABG pH POC ABG pCO2 85.2 H POC ABG pO2 48.4 L ABG pO2 ABG HCO3 ABG O2 Saturation ABG Base Excess ABG Hemoglobin 8.0 L ABG Oxyhemoglobin ABG Sodium ABG Potassium ABG Chloride 95.0 L ABG Glucose 292 H Oxyhemoglobin Carboxyhemoglobin Sodium Potassium Chloride Carbon Dioxide BUN Creatinine Glucose POC Glucose 245 H 252 H Hemoglobin A1c Lactic Acid Calcium Phosphorus Magnesium Ferritin Total Bilirubin Direct Bilirubin AST ALT Alkaline Phosphatase Lactate Dehydrogenase C-Reactive Protein Total Protein Albumin Triglycerides Lipase Arterial Blood Glucose 292 H Arterial Blood Ionized Calcium Urine WBC (Auto) Coronavirus (PCR) SARS-CoV-2 IgG Ab Crossmatch 06/18/20 06/18/20 06/18/20 03:14 05:34 11:47 WBC RBC Hgb Hct MCV MCH MCHC RDW Lymph % (Auto) Walker % (Auto) Lymph # (Auto) Walker # (Auto) Baso # (Auto) Seg Neutrophils % Seg Neuts % (Manual) Lymphocytes % (Manual) Nucleated RBC % Seg Neutrophils # Seg Neutrophils # Man Lymphocytes # (Manual) Monocytes # (Manual) Eosinophils # (Manual) PT INR APTT D-Dimer Heparin Anti-Xa Level ABG pH POC ABG pCO2 65.4 H POC ABG pO2 160.7 H ABG pO2 ABG HCO3 ABG O2 Saturation ABG Base Excess ABG Hemoglobin 7.8 L ABG Oxyhemoglobin ABG Sodium ABG Potassium ABG Chloride 95.0 L ABG Glucose 251 H Oxyhemoglobin Carboxyhemoglobin Sodium Potassium Chloride Carbon Dioxide BUN Creatinine Glucose POC Glucose 243 H 263 H Hemoglobin A1c Lactic Acid Calcium Phosphorus Magnesium Ferritin Total Bilirubin Direct Bilirubin AST ALT Alkaline Phosphatase Lactate Dehydrogenase C-Reactive Protein Total Protein Albumin Triglycerides Lipase Arterial Blood Glucose 251 H Arterial Blood Ionized Calcium Urine WBC (Auto) Coronavirus (PCR) SARS-CoV-2 IgG Ab Crossmatch 06/18/20 06/18/20 06/19/20 17:31 23:33 04:32 WBC RBC Hgb Hct MCV MCH MCHC RDW Lymph % (Auto) Walker % (Auto) Lymph # (Auto) Walker # (Auto) Baso # (Auto) Seg Neutrophils % Seg Neuts % (Manual) Lymphocytes % (Manual) Nucleated RBC % Seg Neutrophils # Seg Neutrophils # Man Lymphocytes # (Manual) Monocytes # (Manual) Eosinophils # (Manual) PT INR APTT D-Dimer Heparin Anti-Xa Level ABG pH POC ABG pCO2 83.1 H POC ABG pO2 65.8 L ABG pO2 ABG HCO3 ABG O2 Saturation ABG Base Excess ABG Hemoglobin 8.9 L ABG Oxyhemoglobin ABG Sodium ABG Potassium ABG Chloride 96.0 L ABG Glucose 297 H Oxyhemoglobin Carboxyhemoglobin Sodium Potassium Chloride Carbon Dioxide BUN Creatinine Glucose POC Glucose 286 H 238 H Hemoglobin A1c Lactic Acid Calcium Phosphorus Magnesium Ferritin Total Bilirubin Direct Bilirubin AST ALT Alkaline Phosphatase Lactate Dehydrogenase C-Reactive Protein Total Protein Albumin Triglycerides Lipase Arterial Blood Glucose 297 H Arterial Blood Ionized Calcium Urine WBC (Auto) Coronavirus (PCR) SARS-CoV-2 IgG Ab Crossmatch 06/19/20 06/19/20 06/19/20 05:55 11:20 17:12 WBC RBC Hgb Hct MCV MCH MCHC RDW Lymph % (Auto) Walker % (Auto) Lymph # (Auto) Walker # (Auto) Baso # (Auto) Seg Neutrophils % Seg Neuts % (Manual) Lymphocytes % (Manual) Nucleated RBC % Seg Neutrophils # Seg Neutrophils # Man Lymphocytes # (Manual) Monocytes # (Manual) Eosinophils # (Manual) PT INR APTT D-Dimer Heparin Anti-Xa Level ABG pH POC ABG pCO2 POC ABG pO2 ABG pO2 ABG HCO3 ABG O2 Saturation ABG Base Excess ABG Hemoglobin ABG Oxyhemoglobin ABG Sodium ABG Potassium ABG Chloride ABG Glucose Oxyhemoglobin Carboxyhemoglobin Sodium Potassium Chloride Carbon Dioxide BUN Creatinine Glucose POC Glucose 274 H 282 H 298 H Hemoglobin A1c Lactic Acid Calcium Phosphorus Magnesium Ferritin Total Bilirubin Direct Bilirubin AST ALT Alkaline Phosphatase Lactate Dehydrogenase C-Reactive Protein Total Protein Albumin Triglycerides Lipase Arterial Blood Glucose Arterial Blood Ionized Calcium Urine WBC (Auto) Coronavirus (PCR) SARS-CoV-2 IgG Ab Crossmatch 06/19/20 06/20/20 06/20/20 23:08 03:33 06:01 WBC RBC Hgb Hct MCV MCH MCHC RDW Lymph % (Auto) Walker % (Auto) Lymph # (Auto) Walker # (Auto) Baso # (Auto) Seg Neutrophils % Seg Neuts % (Manual) Lymphocytes % (Manual) Nucleated RBC % Seg Neutrophils # Seg Neutrophils # Man Lymphocytes # (Manual) Monocytes # (Manual) Eosinophils # (Manual) PT INR APTT D-Dimer Heparin Anti-Xa Level ABG pH POC ABG pCO2 POC ABG pO2 ABG pO2 69.9 L ABG HCO3 50.8 H ABG O2 Saturation ABG Base Excess 24.2 H ABG Hemoglobin 5.8 L ABG Oxyhemoglobin ABG Sodium ABG Potassium ABG Chloride ABG Glucose Oxyhemoglobin Carboxyhemoglobin Sodium Potassium Chloride Carbon Dioxide BUN Creatinine Glucose POC Glucose 293 H 182 H Hemoglobin A1c Lactic Acid Calcium Phosphorus Magnesium Ferritin Total Bilirubin Direct Bilirubin AST ALT Alkaline Phosphatase Lactate Dehydrogenase C-Reactive Protein Total Protein Albumin Triglycerides Lipase Arterial Blood Glucose Arterial Blood Ionized Calcium Urine WBC (Auto) Coronavirus (PCR) SARS-CoV-2 IgG Ab Crossmatch 06/20/20 06/20/20 06/20/20 11:47 17:46 23:37 WBC RBC Hgb Hct MCV MCH MCHC RDW Lymph % (Auto) Walker % (Auto) Lymph # (Auto) Walker # (Auto) Baso # (Auto) Seg Neutrophils % Seg Neuts % (Manual) Lymphocytes % (Manual) Nucleated RBC % Seg Neutrophils # Seg Neutrophils # Man Lymphocytes # (Manual) Monocytes # (Manual) Eosinophils # (Manual) PT INR APTT D-Dimer Heparin Anti-Xa Level ABG pH POC ABG pCO2 POC ABG pO2 ABG pO2 ABG HCO3 ABG O2 Saturation ABG Base Excess ABG Hemoglobin ABG Oxyhemoglobin ABG Sodium ABG Potassium ABG Chloride ABG Glucose Oxyhemoglobin Carboxyhemoglobin Sodium Potassium Chloride Carbon Dioxide BUN Creatinine Glucose POC Glucose 170 H 215 H 256 H Hemoglobin A1c Lactic Acid Calcium Phosphorus Magnesium Ferritin Total Bilirubin Direct Bilirubin AST ALT Alkaline Phosphatase Lactate Dehydrogenase C-Reactive Protein Total Protein Albumin Triglycerides Lipase Arterial Blood Glucose Arterial Blood Ionized Calcium Urine WBC (Auto) Coronavirus (PCR) SARS-CoV-2 IgG Ab Crossmatch 06/21/20 06/21/20 06/21/20 04:00 05:14 05:51 WBC RBC Hgb Hct MCV MCH MCHC RDW Lymph % (Auto) Walker % (Auto) Lymph # (Auto) Walker # (Auto) Baso # (Auto) Seg Neutrophils % Seg Neuts % (Manual) Lymphocytes % (Manual) Nucleated RBC % Seg Neutrophils # Seg Neutrophils # Man Lymphocytes # (Manual) Monocytes # (Manual) Eosinophils # (Manual) PT INR APTT D-Dimer Heparin Anti-Xa Level ABG pH 7.474 H POC ABG pCO2 POC ABG pO2 ABG pO2 ABG HCO3 52.1 H ABG O2 Saturation ABG Base Excess 23.3 H ABG Hemoglobin 5.3 L ABG Oxyhemoglobin ABG Sodium ABG Potassium ABG Chloride ABG Glucose Oxyhemoglobin 93.8 L Carboxyhemoglobin Sodium Potassium Chloride Carbon Dioxide BUN Creatinine Glucose POC Glucose 122 H 129 H Hemoglobin A1c Lactic Acid Calcium Phosphorus Magnesium Ferritin Total Bilirubin Direct Bilirubin AST ALT Alkaline Phosphatase Lactate Dehydrogenase C-Reactive Protein Total Protein Albumin Triglycerides Lipase Arterial Blood Glucose Arterial Blood Ionized Calcium Urine WBC (Auto) Coronavirus (PCR) SARS-CoV-2 IgG Ab Crossmatch 06/21/20 06/21/20 06/21/20 11:00 11:00 11:42 WBC 14.2 H RBC 1.85 L Hgb 6.2 L Hct 19.5 L* MCV 105 H MCH 34 H MCHC RDW 18.0 H Lymph % (Auto) Walker % (Auto) Lymph # (Auto) Walker # (Auto) Baso # (Auto) Seg Neutrophils % Seg Neuts % (Manual) Lymphocytes % (Manual) Nucleated RBC % Seg Neutrophils # Seg Neutrophils # Man Lymphocytes # (Manual) Monocytes # (Manual) Eosinophils # (Manual) PT INR APTT D-Dimer Heparin Anti-Xa Level ABG pH POC ABG pCO2 POC ABG pO2 ABG pO2 ABG HCO3 ABG O2 Saturation ABG Base Excess ABG Hemoglobin ABG Oxyhemoglobin ABG Sodium ABG Potassium ABG Chloride ABG Glucose Oxyhemoglobin Carboxyhemoglobin Sodium 147 H Potassium Chloride Carbon Dioxide 51 H* BUN 31 H Creatinine 0.5 L Glucose 224 H POC Glucose 217 H Hemoglobin A1c Lactic Acid Calcium Phosphorus Magnesium Ferritin Total Bilirubin Direct Bilirubin AST ALT Alkaline Phosphatase Lactate Dehydrogenase C-Reactive Protein Total Protein Albumin Triglycerides Lipase Arterial Blood Glucose Arterial Blood Ionized Calcium Urine WBC (Auto) Coronavirus (PCR) SARS-CoV-2 IgG Ab Crossmatch 06/21/20 06/21/20 06/21/20 14:18 14:30 18:36 WBC RBC Hgb Hct MCV MCH MCHC RDW Lymph % (Auto) Walker % (Auto) Lymph # (Auto) Walker # (Auto) Baso # (Auto) Seg Neutrophils % Seg Neuts % (Manual) Lymphocytes % (Manual) Nucleated RBC % Seg Neutrophils # Seg Neutrophils # Man Lymphocytes # (Manual) Monocytes # (Manual) Eosinophils # (Manual) PT 15.1 H INR 1.19 H APTT D-Dimer Heparin Anti-Xa Level ABG pH POC ABG pCO2 POC ABG pO2 ABG pO2 ABG HCO3 ABG O2 Saturation ABG Base Excess ABG Hemoglobin ABG Oxyhemoglobin ABG Sodium ABG Potassium ABG Chloride ABG Glucose Oxyhemoglobin Carboxyhemoglobin Sodium Potassium Chloride Carbon Dioxide BUN Creatinine Glucose POC Glucose 185 H Hemoglobin A1c Lactic Acid Calcium Phosphorus Magnesium Ferritin Total Bilirubin Direct Bilirubin AST ALT Alkaline Phosphatase Lactate Dehydrogenase C-Reactive Protein Total Protein Albumin Triglycerides Lipase Arterial Blood Glucose Arterial Blood Ionized Calcium Urine WBC (Auto) Coronavirus (PCR) SARS-CoV-2 IgG Ab Crossmatch See Detail 06/21/20 06/22/20 06/22/20 21:14 03:50 04:00 WBC RBC Hgb Hct MCV MCH MCHC RDW Lymph % (Auto) Walker % (Auto) Lymph # (Auto) Walker # (Auto) Baso # (Auto) Seg Neutrophils % Seg Neuts % (Manual) Lymphocytes % (Manual) Nucleated RBC % Seg Neutrophils # Seg Neutrophils # Man Lymphocytes # (Manual) Monocytes # (Manual) Eosinophils # (Manual) PT INR APTT D-Dimer Heparin Anti-Xa Level ABG pH 7.451 H POC ABG pCO2 POC ABG pO2 ABG pO2 ABG HCO3 47.5 H ABG O2 Saturation ABG Base Excess 22.0 H ABG Hemoglobin < 5.1 L ABG Oxyhemoglobin ABG Sodium ABG Potassium ABG Chloride ABG Glucose Oxyhemoglobin 94.1 L Carboxyhemoglobin Sodium 149 H Potassium 3.5 L Chloride Carbon Dioxide 42 H* D BUN 34 H Creatinine 0.4 L Glucose 219 H POC Glucose 250 H Hemoglobin A1c Lactic Acid Calcium Phosphorus Magnesium Ferritin Total Bilirubin Direct Bilirubin AST ALT Alkaline Phosphatase Lactate Dehydrogenase C-Reactive Protein Total Protein Albumin Triglycerides Lipase Arterial Blood Glucose Arterial Blood Ionized Calcium Urine WBC (Auto) Coronavirus (PCR) SARS-CoV-2 IgG Ab Crossmatch 06/22/20 06/22/20 06/22/20 12:16 14:29 17:56 WBC RBC Hgb Hct MCV MCH MCHC RDW Lymph % (Auto) Walker % (Auto) Lymph # (Auto) Walker # (Auto) Baso # (Auto) Seg Neutrophils % Seg Neuts % (Manual) Lymphocytes % (Manual) Nucleated RBC % Seg Neutrophils # Seg Neutrophils # Man Lymphocytes # (Manual) Monocytes # (Manual) Eosinophils # (Manual) PT 11.8 L INR APTT 23.5 L D-Dimer Heparin Anti-Xa Level ABG pH POC ABG pCO2 POC ABG pO2 ABG pO2 ABG HCO3 ABG O2 Saturation ABG Base Excess ABG Hemoglobin ABG Oxyhemoglobin ABG Sodium ABG Potassium ABG Chloride ABG Glucose Oxyhemoglobin Carboxyhemoglobin Sodium Potassium Chloride Carbon Dioxide BUN Creatinine Glucose POC Glucose 215 H 215 H Hemoglobin A1c Lactic Acid Calcium Phosphorus Magnesium Ferritin Total Bilirubin Direct Bilirubin AST ALT Alkaline Phosphatase Lactate Dehydrogenase C-Reactive Protein Total Protein Albumin Triglycerides Lipase Arterial Blood Glucose Arterial Blood Ionized Calcium Urine WBC (Auto) Coronavirus (PCR) SARS-CoV-2 IgG Ab Crossmatch 06/22/20 06/22/20 06/22/20 23:36 23:45 Unknown WBC 14.1 H RBC 2.70 L Hgb 8.9 L 8.9 L Hct 26.9 L 27.2 L D MCV 101 H MCH 33 H MCHC RDW 17.7 H Lymph % (Auto) Walker % (Auto) Lymph # (Auto) Walker # (Auto) Baso # (Auto) Seg Neutrophils % Seg Neuts % (Manual) 92.0 H Lymphocytes % (Manual) 5.0 L Nucleated RBC % Seg Neutrophils # Seg Neutrophils # Man 13.0 H Lymphocytes # (Manual) 0.7 L Monocytes # (Manual) Eosinophils # (Manual) PT INR APTT D-Dimer Heparin Anti-Xa Level ABG pH POC ABG pCO2 POC ABG pO2 ABG pO2 ABG HCO3 ABG O2 Saturation ABG Base Excess ABG Hemoglobin ABG Oxyhemoglobin ABG Sodium ABG Potassium ABG Chloride ABG Glucose Oxyhemoglobin Carboxyhemoglobin Sodium Potassium Chloride Carbon Dioxide BUN Creatinine Glucose POC Glucose 208 H Hemoglobin A1c Lactic Acid Calcium Phosphorus Magnesium Ferritin Total Bilirubin Direct Bilirubin AST ALT Alkaline Phosphatase Lactate Dehydrogenase C-Reactive Protein Total Protein Albumin Triglycerides Lipase Arterial Blood Glucose Arterial Blood Ionized Calcium Urine WBC (Auto) Coronavirus (PCR) SARS-CoV-2 IgG Ab Crossmatch 06/23/20 06/23/20 06/23/20 05:17 05:19 06:50 WBC RBC Hgb Hct MCV MCH MCHC RDW Lymph % (Auto) Walker % (Auto) Lymph # (Auto) Walker # (Auto) Baso # (Auto) Seg Neutrophils % Seg Neuts % (Manual) Lymphocytes % (Manual) Nucleated RBC % Seg Neutrophils # Seg Neutrophils # Man Lymphocytes # (Manual) Monocytes # (Manual) Eosinophils # (Manual) PT INR APTT D-Dimer Heparin Anti-Xa Level ABG pH POC ABG pCO2 69.7 H POC ABG pO2 63.3 L ABG pO2 ABG HCO3 ABG O2 Saturation ABG Base Excess ABG Hemoglobin 10.1 L ABG Oxyhemoglobin ABG Sodium ABG Potassium 3.3 L ABG Chloride ABG Glucose 226 H Oxyhemoglobin Carboxyhemoglobin Sodium Potassium 3.0 L Chloride Carbon Dioxide 41 H* BUN 26 H Creatinine 0.4 L Glucose 209 H POC Glucose 200 H Hemoglobin A1c Lactic Acid Calcium Phosphorus Magnesium Ferritin Total Bilirubin Direct Bilirubin AST ALT Alkaline Phosphatase Lactate Dehydrogenase C-Reactive Protein Total Protein Albumin 2.9 L Triglycerides Lipase Arterial Blood Glucose 226 H Arterial Blood Ionized Calcium Urine WBC (Auto) Coronavirus (PCR) SARS-CoV-2 IgG Ab Crossmatch 06/23/20 06/23/20 06/23/20 09:41 12:04 18:16 WBC RBC Hgb 9.1 L Hct 28.0 L MCV MCH MCHC RDW Lymph % (Auto) Walker % (Auto) Lymph # (Auto) Walker # (Auto) Baso # (Auto) Seg Neutrophils % Seg Neuts % (Manual) Lymphocytes % (Manual) Nucleated RBC % Seg Neutrophils # Seg Neutrophils # Man Lymphocytes # (Manual) Monocytes # (Manual) Eosinophils # (Manual) PT INR APTT D-Dimer Heparin Anti-Xa Level ABG pH POC ABG pCO2 POC ABG pO2 ABG pO2 ABG HCO3 ABG O2 Saturation ABG Base Excess ABG Hemoglobin ABG Oxyhemoglobin ABG Sodium ABG Potassium ABG Chloride ABG Glucose Oxyhemoglobin Carboxyhemoglobin Sodium Potassium Chloride Carbon Dioxide BUN Creatinine Glucose POC Glucose 146 H 162 H Hemoglobin A1c Lactic Acid Calcium Phosphorus Magnesium Ferritin Total Bilirubin Direct Bilirubin AST ALT Alkaline Phosphatase Lactate Dehydrogenase C-Reactive Protein Total Protein Albumin Triglycerides Lipase Arterial Blood Glucose Arterial Blood Ionized Calcium Urine WBC (Auto) Coronavirus (PCR) SARS-CoV-2 IgG Ab Crossmatch 06/23/20 06/23/20 06/24/20 23:24 23:41 02:39 WBC RBC Hgb 8.2 L 8.8 L Hct 24.9 L 26.8 L MCV MCH MCHC RDW Lymph % (Auto) Walker % (Auto) Lymph # (Auto) Walker # (Auto) Baso # (Auto) Seg Neutrophils % Seg Neuts % (Manual) Lymphocytes % (Manual) Nucleated RBC % Seg Neutrophils # Seg Neutrophils # Man Lymphocytes # (Manual) Monocytes # (Manual) Eosinophils # (Manual) PT INR APTT D-Dimer Heparin Anti-Xa Level ABG pH POC ABG pCO2 POC ABG pO2 ABG pO2 ABG HCO3 ABG O2 Saturation ABG Base Excess ABG Hemoglobin ABG Oxyhemoglobin ABG Sodium ABG Potassium ABG Chloride ABG Glucose Oxyhemoglobin Carboxyhemoglobin Sodium Potassium Chloride Carbon Dioxide BUN Creatinine Glucose POC Glucose 248 H Hemoglobin A1c Lactic Acid Calcium Phosphorus Magnesium Ferritin Total Bilirubin Direct Bilirubin AST ALT Alkaline Phosphatase Lactate Dehydrogenase C-Reactive Protein Total Protein Albumin Triglycerides Lipase Arterial Blood Glucose Arterial Blood Ionized Calcium Urine WBC (Auto) Coronavirus (PCR) SARS-CoV-2 IgG Ab Crossmatch 06/24/20 06/24/20 06/24/20 02:39 02:45 05:31 WBC RBC Hgb Hct MCV MCH MCHC RDW Lymph % (Auto) Walker % (Auto) Lymph # (Auto) Walker # (Auto) Baso # (Auto) Seg Neutrophils % Seg Neuts % (Manual) Lymphocytes % (Manual) Nucleated RBC % Seg Neutrophils # Seg Neutrophils # Man Lymphocytes # (Manual) Monocytes # (Manual) Eosinophils # (Manual) PT INR APTT D-Dimer Heparin Anti-Xa Level ABG pH POC ABG pCO2 66.9 H POC ABG pO2 109.7 H ABG pO2 ABG HCO3 ABG O2 Saturation ABG Base Excess ABG Hemoglobin 9.7 L ABG Oxyhemoglobin ABG Sodium 135.0 L ABG Potassium ABG Chloride 97.0 L ABG Glucose 277 H Oxyhemoglobin Carboxyhemoglobin Sodium 136 L Potassium Chloride 95.0 L Carbon Dioxide 34 H D BUN 24 H Creatinine 0.3 L Glucose 260 H POC Glucose 164 H Hemoglobin A1c Lactic Acid Calcium Phosphorus Magnesium Ferritin Total Bilirubin Direct Bilirubin AST ALT Alkaline Phosphatase Lactate Dehydrogenase C-Reactive Protein Total Protein 5.2 L Albumin 2.6 L Triglycerides Lipase Arterial Blood Glucose 277 H Arterial Blood Ionized Calcium Urine WBC (Auto) Coronavirus (PCR) SARS-CoV-2 IgG Ab Crossmatch 06/24/20 06/24/20 06/24/20 10:00 11:49 17:39 WBC RBC Hgb 8.9 L Hct 26.5 L MCV MCH MCHC RDW Lymph % (Auto) Walker % (Auto) Lymph # (Auto) Walker # (Auto) Baso # (Auto) Seg Neutrophils % Seg Neuts % (Manual) Lymphocytes % (Manual) Nucleated RBC % Seg Neutrophils # Seg Neutrophils # Man Lymphocytes # (Manual) Monocytes # (Manual) Eosinophils # (Manual) PT INR APTT D-Dimer Heparin Anti-Xa Level ABG pH POC ABG pCO2 POC ABG pO2 ABG pO2 ABG HCO3 ABG O2 Saturation ABG Base Excess ABG Hemoglobin ABG Oxyhemoglobin ABG Sodium ABG Potassium ABG Chloride ABG Glucose Oxyhemoglobin Carboxyhemoglobin Sodium Potassium Chloride Carbon Dioxide BUN Creatinine Glucose POC Glucose 198 H 223 H Hemoglobin A1c Lactic Acid Calcium Phosphorus Magnesium Ferritin Total Bilirubin Direct Bilirubin AST ALT Alkaline Phosphatase Lactate Dehydrogenase C-Reactive Protein Total Protein Albumin Triglycerides Lipase Arterial Blood Glucose Arterial Blood Ionized Calcium Urine WBC (Auto) Coronavirus (PCR) SARS-CoV-2 IgG Ab Crossmatch 06/24/20 06/25/20 06/25/20 23:56 02:16 04:08 WBC RBC Hgb Hct MCV MCH MCHC RDW Lymph % (Auto) Walker % (Auto) Lymph # (Auto) Walker # (Auto) Baso # (Auto) Seg Neutrophils % Seg Neuts % (Manual) Lymphocytes % (Manual) Nucleated RBC % Seg Neutrophils # Seg Neutrophils # Man Lymphocytes # (Manual) Monocytes # (Manual) Eosinophils # (Manual) PT INR APTT D-Dimer Heparin Anti-Xa Level ABG pH 7.454 H POC ABG pCO2 56.9 H POC ABG pO2 61.0 L ABG pO2 ABG HCO3 ABG O2 Saturation ABG Base Excess ABG Hemoglobin ABG Oxyhemoglobin ABG Sodium 134.3 L ABG Potassium ABG Chloride 92.0 L ABG Glucose 246 H Oxyhemoglobin Carboxyhemoglobin Sodium 134 L Potassium Chloride 89.7 L Carbon Dioxide 36 H BUN Creatinine 0.3 L Glucose 254 H POC Glucose 225 H Hemoglobin A1c Lactic Acid Calcium Phosphorus Magnesium Ferritin Total Bilirubin Direct Bilirubin AST ALT Alkaline Phosphatase Lactate Dehydrogenase C-Reactive Protein Total Protein Albumin 2.9 L Triglycerides Lipase Arterial Blood Glucose 246 H Arterial Blood Ionized Calcium Urine WBC (Auto) Coronavirus (PCR) SARS-CoV-2 IgG Ab Crossmatch 06/25/20 06/25/20 06/25/20 05:44 11:35 17:33 WBC RBC Hgb Hct MCV MCH MCHC RDW Lymph % (Auto) Walker % (Auto) Lymph # (Auto) Walker # (Auto) Baso # (Auto) Seg Neutrophils % Seg Neuts % (Manual) Lymphocytes % (Manual) Nucleated RBC % Seg Neutrophils # Seg Neutrophils # Man Lymphocytes # (Manual) Monocytes # (Manual) Eosinophils # (Manual) PT INR APTT D-Dimer Heparin Anti-Xa Level ABG pH POC ABG pCO2 POC ABG pO2 ABG pO2 ABG HCO3 ABG O2 Saturation ABG Base Excess ABG Hemoglobin ABG Oxyhemoglobin ABG Sodium ABG Potassium ABG Chloride ABG Glucose Oxyhemoglobin Carboxyhemoglobin Sodium Potassium Chloride Carbon Dioxide BUN Creatinine Glucose POC Glucose 170 H 175 H 229 H Hemoglobin A1c Lactic Acid Calcium Phosphorus Magnesium Ferritin Total Bilirubin Direct Bilirubin AST ALT Alkaline Phosphatase Lactate Dehydrogenase C-Reactive Protein Total Protein Albumin Triglycerides Lipase Arterial Blood Glucose Arterial Blood Ionized Calcium Urine WBC (Auto) Coronavirus (PCR) SARS-CoV-2 IgG Ab Crossmatch 06/25/20 06/26/20 06/26/20 23:55 02:17 02:17 WBC RBC Hgb 10.0 L Hct 30.4 L MCV MCH MCHC RDW Lymph % (Auto) Walker % (Auto) Lymph # (Auto) Walker # (Auto) Baso # (Auto) Seg Neutrophils % Seg Neuts % (Manual) Lymphocytes % (Manual) Nucleated RBC % Seg Neutrophils # Seg Neutrophils # Man Lymphocytes # (Manual) Monocytes # (Manual) Eosinophils # (Manual) PT INR APTT D-Dimer Heparin Anti-Xa Level ABG pH POC ABG pCO2 POC ABG pO2 ABG pO2 ABG HCO3 ABG O2 Saturation ABG Base Excess ABG Hemoglobin ABG Oxyhemoglobin ABG Sodium ABG Potassium ABG Chloride ABG Glucose Oxyhemoglobin Carboxyhemoglobin Sodium 136 L Potassium Chloride 90.1 L Carbon Dioxide 39 H BUN Creatinine 0.2 L Glucose 232 H POC Glucose 192 H Hemoglobin A1c Lactic Acid Calcium Phosphorus Magnesium Ferritin Total Bilirubin Direct Bilirubin AST ALT Alkaline Phosphatase Lactate Dehydrogenase C-Reactive Protein Total Protein 6.1 L Albumin 2.9 L Triglycerides Lipase Arterial Blood Glucose Arterial Blood Ionized Calcium Urine WBC (Auto) Coronavirus (PCR) SARS-CoV-2 IgG Ab Crossmatch 06/26/20 06/26/20 06/26/20 04:15 04:49 05:28 WBC RBC Hgb Hct MCV MCH MCHC RDW Lymph % (Auto) Walker % (Auto) Lymph # (Auto) Walker # (Auto) Baso # (Auto) Seg Neutrophils % Seg Neuts % (Manual) Lymphocytes % (Manual) Nucleated RBC % Seg Neutrophils # Seg Neutrophils # Man Lymphocytes # (Manual) Monocytes # (Manual) Eosinophils # (Manual) PT INR APTT D-Dimer Heparin Anti-Xa Level ABG pH 7.453 H POC ABG pCO2 59.6 H POC ABG pO2 ABG pO2 ABG HCO3 ABG O2 Saturation ABG Base Excess ABG Hemoglobin 10.0 L ABG Oxyhemoglobin ABG Sodium 134.2 L ABG Potassium 3.3 L ABG Chloride 92.0 L ABG Glucose 305 H Oxyhemoglobin Carboxyhemoglobin Sodium Potassium Chloride Carbon Dioxide BUN Creatinine Glucose POC Glucose 234 H Hemoglobin A1c Lactic Acid Calcium Phosphorus Magnesium Ferritin Total Bilirubin Direct Bilirubin AST ALT Alkaline Phosphatase Lactate Dehydrogenase C-Reactive Protein Total Protein Albumin Triglycerides 203 H Lipase Arterial Blood Glucose 305 H Arterial Blood Ionized Calcium Urine WBC (Auto) Coronavirus (PCR) SARS-CoV-2 IgG Ab Crossmatch 06/26/20 06/26/20 06/26/20 11:58 17:58 21:32 WBC RBC Hgb Hct MCV MCH MCHC RDW Lymph % (Auto) Walker % (Auto) Lymph # (Auto) Walker # (Auto) Baso # (Auto) Seg Neutrophils % Seg Neuts % (Manual) Lymphocytes % (Manual) Nucleated RBC % Seg Neutrophils # Seg Neutrophils # Man Lymphocytes # (Manual) Monocytes # (Manual) Eosinophils # (Manual) PT INR APTT D-Dimer Heparin Anti-Xa Level ABG pH POC ABG pCO2 POC ABG pO2 ABG pO2 ABG HCO3 ABG O2 Saturation ABG Base Excess ABG Hemoglobin ABG Oxyhemoglobin ABG Sodium ABG Potassium ABG Chloride ABG Glucose Oxyhemoglobin Carboxyhemoglobin Sodium Potassium Chloride Carbon Dioxide BUN Creatinine Glucose POC Glucose 198 H 193 H 191 H Hemoglobin A1c Lactic Acid Calcium Phosphorus Magnesium Ferritin Total Bilirubin Direct Bilirubin AST ALT Alkaline Phosphatase Lactate Dehydrogenase C-Reactive Protein Total Protein Albumin Triglycerides Lipase Arterial Blood Glucose Arterial Blood Ionized Calcium Urine WBC (Auto) Coronavirus (PCR) SARS-CoV-2 IgG Ab Crossmatch 06/26/20 06/27/20 06/27/20 23:40 04:35 05:32 WBC RBC Hgb Hct MCV MCH MCHC RDW Lymph % (Auto) Walker % (Auto) Lymph # (Auto) Walker # (Auto) Baso # (Auto) Seg Neutrophils % Seg Neuts % (Manual) Lymphocytes % (Manual) Nucleated RBC % Seg Neutrophils # Seg Neutrophils # Man Lymphocytes # (Manual) Monocytes # (Manual) Eosinophils # (Manual) PT INR APTT D-Dimer Heparin Anti-Xa Level ABG pH 7.464 H POC ABG pCO2 60.8 H POC ABG pO2 ABG pO2 ABG HCO3 ABG O2 Saturation ABG Base Excess ABG Hemoglobin 10.1 L ABG Oxyhemoglobin ABG Sodium ABG Potassium 2.9 L ABG Chloride 92.0 L ABG Glucose 298 H Oxyhemoglobin Carboxyhemoglobin Sodium Potassium Chloride Carbon Dioxide BUN Creatinine Glucose POC Glucose 241 H 211 H Hemoglobin A1c Lactic Acid Calcium Phosphorus Magnesium Ferritin Total Bilirubin Direct Bilirubin AST ALT Alkaline Phosphatase Lactate Dehydrogenase C-Reactive Protein Total Protein Albumin Triglycerides Lipase Arterial Blood Glucose 298 H Arterial Blood Ionized Calcium Urine WBC (Auto) Coronavirus (PCR) SARS-CoV-2 IgG Ab Crossmatch 06/27/20 06/27/20 06/27/20 12:37 18:08 20:52 WBC RBC Hgb Hct MCV MCH MCHC RDW Lymph % (Auto) Walker % (Auto) Lymph # (Auto) Walker # (Auto) Baso # (Auto) Seg Neutrophils % Seg Neuts % (Manual) Lymphocytes % (Manual) Nucleated RBC % Seg Neutrophils # Seg Neutrophils # Man Lymphocytes # (Manual) Monocytes # (Manual) Eosinophils # (Manual) PT INR APTT D-Dimer Heparin Anti-Xa Level ABG pH POC ABG pCO2 POC ABG pO2 ABG pO2 ABG HCO3 ABG O2 Saturation ABG Base Excess ABG Hemoglobin ABG Oxyhemoglobin ABG Sodium ABG Potassium ABG Chloride ABG Glucose Oxyhemoglobin Carboxyhemoglobin Sodium Potassium Chloride Carbon Dioxide BUN Creatinine Glucose POC Glucose 182 H 197 H 195 H Hemoglobin A1c Lactic Acid Calcium Phosphorus Magnesium Ferritin Total Bilirubin Direct Bilirubin AST ALT Alkaline Phosphatase Lactate Dehydrogenase C-Reactive Protein Total Protein Albumin Triglycerides Lipase Arterial Blood Glucose Arterial Blood Ionized Calcium Urine WBC (Auto) Coronavirus (PCR) SARS-CoV-2 IgG Ab Crossmatch 06/27/20 06/28/20 06/28/20 Unknown 04:17 04:50 WBC RBC Hgb Hct MCV MCH MCHC RDW Lymph % (Auto) Walker % (Auto) Lymph # (Auto) Walker # (Auto) Baso # (Auto) Seg Neutrophils % Seg Neuts % (Manual) Lymphocytes % (Manual) Nucleated RBC % Seg Neutrophils # Seg Neutrophils # Man Lymphocytes # (Manual) Monocytes # (Manual) Eosinophils # (Manual) PT INR APTT D-Dimer Heparin Anti-Xa Level ABG pH POC ABG pCO2 58.6 H POC ABG pO2 60.1 L ABG pO2 ABG HCO3 ABG O2 Saturation ABG Base Excess ABG Hemoglobin 10.0 L ABG Oxyhemoglobin ABG Sodium 125.3 L ABG Potassium ABG Chloride 93.0 L ABG Glucose 308 H Oxyhemoglobin Carboxyhemoglobin Sodium Potassium 2.9 L* Chloride 93.4 L Carbon Dioxide 42 H* BUN Creatinine 0.3 L Glucose 211 H POC Glucose 252 H Hemoglobin A1c Lactic Acid Calcium 8.1 L Phosphorus Magnesium Ferritin Total Bilirubin Direct Bilirubin AST ALT Alkaline Phosphatase Lactate Dehydrogenase C-Reactive Protein Total Protein 5.1 L Albumin 2.4 L Triglycerides Lipase Arterial Blood Glucose 308 H Arterial Blood Ionized Calcium Urine WBC (Auto) Coronavirus (PCR) SARS-CoV-2 IgG Ab Crossmatch 06/28/20 06/28/20 06/28/20 06:35 06:35 11:36 WBC 18.9 H RBC 2.85 L Hgb 9.5 L Hct 28.4 L MCV 100 H MCH 33 H MCHC RDW 17.3 H Lymph % (Auto) Walker % (Auto) Lymph # (Auto) Walker # (Auto) Baso # (Auto) Seg Neutrophils % 88.6 H Seg Neuts % (Manual) 95.0 H Lymphocytes % (Manual) 1.0 L Nucleated RBC % Seg Neutrophils # 15.9 H Seg Neutrophils # Man 18.0 H Lymphocytes # (Manual) 0.2 L Monocytes # (Manual) Eosinophils # (Manual) PT INR APTT D-Dimer Heparin Anti-Xa Level ABG pH POC ABG pCO2 POC ABG pO2 ABG pO2 ABG HCO3 ABG O2 Saturation ABG Base Excess ABG Hemoglobin ABG Oxyhemoglobin ABG Sodium ABG Potassium ABG Chloride ABG Glucose Oxyhemoglobin Carboxyhemoglobin Sodium Potassium Chloride 94.2 L Carbon Dioxide 38 H BUN Creatinine 0.3 L Glucose 228 H POC Glucose 243 H Hemoglobin A1c Lactic Acid Calcium Phosphorus Magnesium Ferritin Total Bilirubin Direct Bilirubin AST ALT Alkaline Phosphatase Lactate Dehydrogenase C-Reactive Protein Total Protein 6.1 L Albumin 2.7 L Triglycerides Lipase Arterial Blood Glucose Arterial Blood Ionized Calcium Urine WBC (Auto) Coronavirus (PCR) SARS-CoV-2 IgG Ab Crossmatch 06/28/20 06/28/20 06/29/20 16:53 21:10 00:06 WBC RBC Hgb Hct MCV MCH MCHC RDW Lymph % (Auto) Walker % (Auto) Lymph # (Auto) Walker # (Auto) Baso # (Auto) Seg Neutrophils % Seg Neuts % (Manual) Lymphocytes % (Manual) Nucleated RBC % Seg Neutrophils # Seg Neutrophils # Man Lymphocytes # (Manual) Monocytes # (Manual) Eosinophils # (Manual) PT INR APTT D-Dimer Heparin Anti-Xa Level ABG pH POC ABG pCO2 POC ABG pO2 ABG pO2 ABG HCO3 ABG O2 Saturation ABG Base Excess ABG Hemoglobin ABG Oxyhemoglobin ABG Sodium ABG Potassium ABG Chloride ABG Glucose Oxyhemoglobin Carboxyhemoglobin Sodium Potassium Chloride Carbon Dioxide BUN Creatinine Glucose POC Glucose 211 H 195 H 200 H Hemoglobin A1c Lactic Acid Calcium Phosphorus Magnesium Ferritin Total Bilirubin Direct Bilirubin AST ALT Alkaline Phosphatase Lactate Dehydrogenase C-Reactive Protein Total Protein Albumin Triglycerides Lipase Arterial Blood Glucose Arterial Blood Ionized Calcium Urine WBC (Auto) Coronavirus (PCR) SARS-CoV-2 IgG Ab Crossmatch 06/29/20 06/29/20 06/29/20 03:11 04:00 04:00 WBC 18.8 H RBC 2.82 L Hgb 10.1 L Hct 28.5 L MCV 101 H MCH 36 H MCHC 36 H RDW 17.5 H Lymph % (Auto) 10.7 L Walker % (Auto) Lymph # (Auto) Walker # (Auto) 1.0 H Baso # (Auto) 0.3 H Seg Neutrophils % 82.2 H Seg Neuts % (Manual) Lymphocytes % (Manual) Nucleated RBC % Seg Neutrophils # 15.5 H Seg Neutrophils # Man Lymphocytes # (Manual) Monocytes # (Manual) Eosinophils # (Manual) PT INR APTT D-Dimer Heparin Anti-Xa Level ABG pH POC ABG pCO2 57.5 H POC ABG pO2 69.1 L ABG pO2 ABG HCO3 ABG O2 Saturation ABG Base Excess ABG Hemoglobin 10.2 L ABG Oxyhemoglobin 92.3 L ABG Sodium 130.7 L ABG Potassium 3.2 L ABG Chloride 93.0 L ABG Glucose 228 H Oxyhemoglobin Carboxyhemoglobin Sodium 134 L Potassium 3.3 L Chloride 89.5 L Carbon Dioxide 40 H BUN Creatinine 0.2 L Glucose 190 H POC Glucose Hemoglobin A1c Lactic Acid Calcium Phosphorus Magnesium Ferritin Total Bilirubin Direct Bilirubin AST < 5 L ALT < 5 L Alkaline Phosphatase Lactate Dehydrogenase C-Reactive Protein Total Protein 5.9 L Albumin 2.2 L Triglycerides Lipase Arterial Blood Glucose 228 H Arterial Blood Ionized Calcium Urine WBC (Auto) Coronavirus (PCR) SARS-CoV-2 IgG Ab Crossmatch 06/29/20 06/29/20 06/29/20 05:00 05:23 09:36 WBC RBC Hgb Hct MCV MCH MCHC RDW Lymph % (Auto) Walker % (Auto) Lymph # (Auto) Walker # (Auto) Baso # (Auto) Seg Neutrophils % Seg Neuts % (Manual) Lymphocytes % (Manual) Nucleated RBC % Seg Neutrophils # Seg Neutrophils # Man Lymphocytes # (Manual) Monocytes # (Manual) Eosinophils # (Manual) PT INR APTT D-Dimer Heparin Anti-Xa Level ABG pH POC ABG pCO2 POC ABG pO2 ABG pO2 ABG HCO3 ABG O2 Saturation ABG Base Excess ABG Hemoglobin ABG Oxyhemoglobin ABG Sodium ABG Potassium ABG Chloride ABG Glucose Oxyhemoglobin Carboxyhemoglobin Sodium Potassium Chloride Carbon Dioxide BUN Creatinine Glucose POC Glucose 165 H Hemoglobin A1c Lactic Acid Calcium Phosphorus Magnesium Ferritin Total Bilirubin Direct Bilirubin AST ALT Alkaline Phosphatase Lactate Dehydrogenase C-Reactive Protein Total Protein Albumin Triglycerides 1544 H 1799 H Lipase Arterial Blood Glucose Arterial Blood Ionized Calcium Urine WBC (Auto) Coronavirus (PCR) SARS-CoV-2 IgG Ab Crossmatch 06/29/20 06/29/20 06/29/20 09:36 12:02 18:00 WBC RBC Hgb Hct MCV MCH MCHC RDW Lymph % (Auto) Walker % (Auto) Lymph # (Auto) Walker # (Auto) Baso # (Auto) Seg Neutrophils % Seg Neuts % (Manual) Lymphocytes % (Manual) Nucleated RBC % Seg Neutrophils # Seg Neutrophils # Man Lymphocytes # (Manual) Monocytes # (Manual) Eosinophils # (Manual) PT INR APTT D-Dimer Heparin Anti-Xa Level ABG pH POC ABG pCO2 POC ABG pO2 ABG pO2 ABG HCO3 ABG O2 Saturation ABG Base Excess ABG Hemoglobin ABG Oxyhemoglobin ABG Sodium ABG Potassium ABG Chloride ABG Glucose Oxyhemoglobin Carboxyhemoglobin Sodium Potassium Chloride Carbon Dioxide BUN Creatinine Glucose POC Glucose 197 H 187 H Hemoglobin A1c Lactic Acid Calcium Phosphorus Magnesium Ferritin Total Bilirubin Direct Bilirubin AST ALT Alkaline Phosphatase Lactate Dehydrogenase C-Reactive Protein Total Protein Albumin Triglycerides Lipase 86 H Arterial Blood Glucose Arterial Blood Ionized Calcium Urine WBC (Auto) Coronavirus (PCR) SARS-CoV-2 IgG Ab Crossmatch 06/29/20 06/30/20 06/30/20 23:33 03:46 05:50 WBC RBC Hgb Hct MCV MCH MCHC RDW Lymph % (Auto) Walker % (Auto) Lymph # (Auto) Walker # (Auto) Baso # (Auto) Seg Neutrophils % Seg Neuts % (Manual) Lymphocytes % (Manual) Nucleated RBC % Seg Neutrophils # Seg Neutrophils # Man Lymphocytes # (Manual) Monocytes # (Manual) Eosinophils # (Manual) PT INR APTT D-Dimer Heparin Anti-Xa Level ABG pH 7.466 H POC ABG pCO2 57.3 H POC ABG pO2 66.1 L ABG pO2 ABG HCO3 ABG O2 Saturation ABG Base Excess ABG Hemoglobin 10.2 L ABG Oxyhemoglobin 92.3 L ABG Sodium 134.4 L ABG Potassium 3.2 L ABG Chloride 94.0 L ABG Glucose 178 H Oxyhemoglobin Carboxyhemoglobin Sodium Potassium Chloride Carbon Dioxide BUN Creatinine Glucose POC Glucose 170 H 170 H Hemoglobin A1c Lactic Acid Calcium Phosphorus Magnesium Ferritin Total Bilirubin Direct Bilirubin AST ALT Alkaline Phosphatase Lactate Dehydrogenase C-Reactive Protein Total Protein Albumin Triglycerides Lipase Arterial Blood Glucose 178 H Arterial Blood Ionized Calcium Urine WBC (Auto) Coronavirus (PCR) SARS-CoV-2 IgG Ab Crossmatch 06/30/20 06/30/20 06/30/20 07:00 07:00 12:04 WBC 15.6 H RBC 2.91 L Hgb 9.8 L Hct 29.7 L MCV 102 H MCH 34 H MCHC RDW 17.8 H Lymph % (Auto) Walker % (Auto) Lymph # (Auto) Walker # (Auto) Baso # (Auto) Seg Neutrophils % Seg Neuts % (Manual) Lymphocytes % (Manual) 5.0 L Nucleated RBC % Seg Neutrophils # Seg Neutrophils # Man 14.8 H Lymphocytes # (Manual) 0.8 L Monocytes # (Manual) Eosinophils # (Manual) PT INR APTT D-Dimer Heparin Anti-Xa Level ABG pH POC ABG pCO2 POC ABG pO2 ABG pO2 ABG HCO3 ABG O2 Saturation ABG Base Excess ABG Hemoglobin ABG Oxyhemoglobin ABG Sodium ABG Potassium ABG Chloride ABG Glucose Oxyhemoglobin Carboxyhemoglobin Sodium Potassium Chloride 93.3 L Carbon Dioxide 43 H* BUN Creatinine 0.3 L Glucose 260 H POC Glucose 245 H Hemoglobin A1c Lactic Acid Calcium Phosphorus Magnesium Ferritin Total Bilirubin Direct Bilirubin AST ALT Alkaline Phosphatase Lactate Dehydrogenase C-Reactive Protein Total Protein Albumin 2.8 L Triglycerides 452 H Lipase Arterial Blood Glucose Arterial Blood Ionized Calcium Urine WBC (Auto) Coronavirus (PCR) SARS-CoV-2 IgG Ab Crossmatch 06/30/20 07/01/20 07/01/20 17:32 00:02 05:02 WBC RBC Hgb Hct MCV MCH MCHC RDW Lymph % (Auto) Walker % (Auto) Lymph # (Auto) Walker # (Auto) Baso # (Auto) Seg Neutrophils % Seg Neuts % (Manual) Lymphocytes % (Manual) Nucleated RBC % Seg Neutrophils # Seg Neutrophils # Man Lymphocytes # (Manual) Monocytes # (Manual) Eosinophils # (Manual) PT INR APTT D-Dimer Heparin Anti-Xa Level ABG pH POC ABG pCO2 58.1 H POC ABG pO2 ABG pO2 ABG HCO3 ABG O2 Saturation ABG Base Excess ABG Hemoglobin 11.2 L ABG Oxyhemoglobin ABG Sodium 132.7 L ABG Potassium ABG Chloride 92.0 L ABG Glucose 238 H Oxyhemoglobin Carboxyhemoglobin Sodium Potassium Chloride Carbon Dioxide BUN Creatinine Glucose POC Glucose 209 H 208 H Hemoglobin A1c Lactic Acid Calcium Phosphorus Magnesium Ferritin Total Bilirubin Direct Bilirubin AST ALT Alkaline Phosphatase Lactate Dehydrogenase C-Reactive Protein Total Protein Albumin Triglycerides Lipase Arterial Blood Glucose 238 H Arterial Blood Ionized Calcium Urine WBC (Auto) Coronavirus (PCR) SARS-CoV-2 IgG Ab Crossmatch 07/01/20 07/01/20 07/01/20 06:16 06:41 06:41 WBC 18.1 H RBC 2.33 L Hgb 7.1 L Hct 21.3 L D MCV MCH MCHC RDW Lymph % (Auto) Walker % (Auto) Lymph # (Auto) Walker # (Auto) Baso # (Auto) Seg Neutrophils % Seg Neuts % (Manual) 82.0 H Lymphocytes % (Manual) 7.0 L Nucleated RBC % 1.0 H Seg Neutrophils # Seg Neutrophils # Man 14.8 H Lymphocytes # (Manual) Monocytes # (Manual) 1.1 H Eosinophils # (Manual) 0.5 H PT INR APTT D-Dimer Heparin Anti-Xa Level < 0.10 L ABG pH POC ABG pCO2 POC ABG pO2 ABG pO2 ABG HCO3 ABG O2 Saturation ABG Base Excess ABG Hemoglobin ABG Oxyhemoglobin ABG Sodium ABG Potassium ABG Chloride ABG Glucose Oxyhemoglobin Carboxyhemoglobin Sodium Potassium Chloride Carbon Dioxide BUN Creatinine Glucose POC Glucose 180 H Hemoglobin A1c Lactic Acid Calcium Phosphorus Magnesium Ferritin Total Bilirubin Direct Bilirubin AST ALT Alkaline Phosphatase Lactate Dehydrogenase C-Reactive Protein Total Protein Albumin Triglycerides Lipase Arterial Blood Glucose Arterial Blood Ionized Calcium Urine WBC (Auto) Coronavirus (PCR) SARS-CoV-2 IgG Ab Crossmatch 07/01/20 07/01/20 07/01/20 08:11 12:04 16:16 WBC RBC Hgb Hct MCV MCH MCHC RDW Lymph % (Auto) Walker % (Auto) Lymph # (Auto) Walker # (Auto) Baso # (Auto) Seg Neutrophils % Seg Neuts % (Manual) Lymphocytes % (Manual) Nucleated RBC % Seg Neutrophils # Seg Neutrophils # Man Lymphocytes # (Manual) Monocytes # (Manual) Eosinophils # (Manual) PT INR APTT D-Dimer Heparin Anti-Xa Level 1.02 H ABG pH POC ABG pCO2 POC ABG pO2 ABG pO2 ABG HCO3 ABG O2 Saturation ABG Base Excess ABG Hemoglobin ABG Oxyhemoglobin ABG Sodium ABG Potassium ABG Chloride ABG Glucose Oxyhemoglobin Carboxyhemoglobin Sodium 135 L Potassium 3.0 L Chloride 93.1 L Carbon Dioxide 40 H BUN Creatinine 0.3 L Glucose 140 H POC Glucose 223 H Hemoglobin A1c Lactic Acid Calcium Phosphorus Magnesium Ferritin Total Bilirubin Direct Bilirubin AST ALT Alkaline Phosphatase Lactate Dehydrogenase C-Reactive Protein Total Protein Albumin Triglycerides Lipase Arterial Blood Glucose Arterial Blood Ionized Calcium Urine WBC (Auto) Coronavirus (PCR) SARS-CoV-2 IgG Ab Crossmatch 07/01/20 07/01/20 07/02/20 17:09 23:19 00:56 WBC RBC Hgb Hct MCV MCH MCHC RDW Lymph % (Auto) Walker % (Auto) Lymph # (Auto) Walker # (Auto) Baso # (Auto) Seg Neutrophils % Seg Neuts % (Manual) Lymphocytes % (Manual) Nucleated RBC % Seg Neutrophils # Seg Neutrophils # Man Lymphocytes # (Manual) Monocytes # (Manual) Eosinophils # (Manual) PT INR APTT D-Dimer Heparin Anti-Xa Level 0.22 L ABG pH POC ABG pCO2 POC ABG pO2 ABG pO2 ABG HCO3 ABG O2 Saturation ABG Base Excess ABG Hemoglobin ABG Oxyhemoglobin ABG Sodium ABG Potassium ABG Chloride ABG Glucose Oxyhemoglobin Carboxyhemoglobin Sodium Potassium Chloride Carbon Dioxide BUN Creatinine Glucose POC Glucose 233 H 255 H Hemoglobin A1c Lactic Acid Calcium Phosphorus Magnesium Ferritin Total Bilirubin Direct Bilirubin AST ALT Alkaline Phosphatase Lactate Dehydrogenase C-Reactive Protein Total Protein Albumin Triglycerides Lipase Arterial Blood Glucose Arterial Blood Ionized Calcium Urine WBC (Auto) Coronavirus (PCR) SARS-CoV-2 IgG Ab Crossmatch 07/02/20 07/02/20 07/02/20 03:51 05:35 11:39 WBC RBC Hgb Hct MCV MCH MCHC RDW Lymph % (Auto) Walker % (Auto) Lymph # (Auto) Walker # (Auto) Baso # (Auto) Seg Neutrophils % Seg Neuts % (Manual) Lymphocytes % (Manual) Nucleated RBC % Seg Neutrophils # Seg Neutrophils # Man Lymphocytes # (Manual) Monocytes # (Manual) Eosinophils # (Manual) PT INR APTT D-Dimer Heparin Anti-Xa Level ABG pH POC ABG pCO2 54.9 H POC ABG pO2 52.1 L ABG pO2 ABG HCO3 ABG O2 Saturation ABG Base Excess ABG Hemoglobin 11.9 L ABG Oxyhemoglobin 82.8 L ABG Sodium 130.2 L ABG Potassium ABG Chloride 92.0 L ABG Glucose 249 H Oxyhemoglobin Carboxyhemoglobin 1.9 H Sodium Potassium Chloride Carbon Dioxide BUN Creatinine Glucose POC Glucose 205 H 235 H Hemoglobin A1c Lactic Acid Calcium Phosphorus Magnesium Ferritin Total Bilirubin Direct Bilirubin AST ALT Alkaline Phosphatase Lactate Dehydrogenase C-Reactive Protein Total Protein Albumin Triglycerides Lipase Arterial Blood Glucose 249 H Arterial Blood Ionized Calcium Urine WBC (Auto) Coronavirus (PCR) SARS-CoV-2 IgG Ab Crossmatch 07/02/20 07/02/20 07/02/20 16:08 16:08 17:54 WBC 19.8 H RBC 3.28 L Hgb 10.7 L D Hct 32.7 L D MCV 100 H MCH 33 H MCHC RDW 17.2 H Lymph % (Auto) Walker % (Auto) Lymph # (Auto) Walker # (Auto) Baso # (Auto) Seg Neutrophils % Seg Neuts % (Manual) Lymphocytes % (Manual) Nucleated RBC % Seg Neutrophils # Seg Neutrophils # Man Lymphocytes # (Manual) Monocytes # (Manual) Eosinophils # (Manual) PT INR APTT D-Dimer Heparin Anti-Xa Level ABG pH POC ABG pCO2 POC ABG pO2 ABG pO2 ABG HCO3 ABG O2 Saturation ABG Base Excess ABG Hemoglobin ABG Oxyhemoglobin ABG Sodium ABG Potassium ABG Chloride ABG Glucose Oxyhemoglobin Carboxyhemoglobin Sodium 136 L Potassium Chloride 92.4 L Carbon Dioxide 35 H BUN Creatinine 0.3 L Glucose 203 H POC Glucose 175 H Hemoglobin A1c Lactic Acid Calcium Phosphorus Magnesium Ferritin Total Bilirubin Direct Bilirubin AST ALT Alkaline Phosphatase Lactate Dehydrogenase C-Reactive Protein Total Protein Albumin Triglycerides Lipase Arterial Blood Glucose Arterial Blood Ionized Calcium Urine WBC (Auto) Coronavirus (PCR) SARS-CoV-2 IgG Ab Crossmatch 07/02/20 07/03/20 07/03/20 23:46 03:25 05:54 WBC RBC Hgb Hct MCV MCH MCHC RDW Lymph % (Auto) Walker % (Auto) Lymph # (Auto) Walker # (Auto) Baso # (Auto) Seg Neutrophils % Seg Neuts % (Manual) Lymphocytes % (Manual) Nucleated RBC % Seg Neutrophils # Seg Neutrophils # Man Lymphocytes # (Manual) Monocytes # (Manual) Eosinophils # (Manual) PT INR APTT D-Dimer Heparin Anti-Xa Level ABG pH 7.468 H POC ABG pCO2 51.5 H POC ABG pO2 ABG pO2 ABG HCO3 ABG O2 Saturation ABG Base Excess ABG Hemoglobin ABG Oxyhemoglobin ABG Sodium 130.2 L ABG Potassium ABG Chloride 91.0 L ABG Glucose 210 H Oxyhemoglobin Carboxyhemoglobin 1.6 H Sodium Potassium Chloride Carbon Dioxide BUN Creatinine Glucose POC Glucose 173 H 125 H Hemoglobin A1c Lactic Acid Calcium Phosphorus Magnesium Ferritin Total Bilirubin Direct Bilirubin AST ALT Alkaline Phosphatase Lactate Dehydrogenase C-Reactive Protein Total Protein Albumin Triglycerides Lipase Arterial Blood Glucose 210 H Arterial Blood Ionized Calcium Urine WBC (Auto) Coronavirus (PCR) SARS-CoV-2 IgG Ab Crossmatch 07/03/20 07/03/20 07/03/20 11:43 12:20 12:20 WBC 16.5 H RBC 3.13 L Hgb 10.4 L Hct 31.8 L MCV 102 H MCH 33 H MCHC RDW 17.2 H Lymph % (Auto) Walker % (Auto) Lymph # (Auto) Walker # (Auto) Baso # (Auto) Seg Neutrophils % Seg Neuts % (Manual) Lymphocytes % (Manual) Nucleated RBC % Seg Neutrophils # Seg Neutrophils # Man Lymphocytes # (Manual) Monocytes # (Manual) Eosinophils # (Manual) PT INR APTT D-Dimer Heparin Anti-Xa Level ABG pH POC ABG pCO2 POC ABG pO2 ABG pO2 ABG HCO3 ABG O2 Saturation ABG Base Excess ABG Hemoglobin ABG Oxyhemoglobin ABG Sodium ABG Potassium ABG Chloride ABG Glucose Oxyhemoglobin Carboxyhemoglobin Sodium 132 L Potassium Chloride 88.5 L Carbon Dioxide 37 H BUN Creatinine 0.3 L Glucose 230 H POC Glucose 223 H Hemoglobin A1c Lactic Acid Calcium Phosphorus Magnesium Ferritin Total Bilirubin Direct Bilirubin AST ALT Alkaline Phosphatase Lactate Dehydrogenase C-Reactive Protein Total Protein Albumin Triglycerides Lipase Arterial Blood Glucose Arterial Blood Ionized Calcium Urine WBC (Auto) Coronavirus (PCR) SARS-CoV-2 IgG Ab Crossmatch 07/03/20 07/03/20 07/04/20 17:24 21:41 00:54 WBC RBC Hgb Hct MCV MCH MCHC RDW Lymph % (Auto) Walker % (Auto) Lymph # (Auto) Walker # (Auto) Baso # (Auto) Seg Neutrophils % Seg Neuts % (Manual) Lymphocytes % (Manual) Nucleated RBC % Seg Neutrophils # Seg Neutrophils # Man Lymphocytes # (Manual) Monocytes # (Manual) Eosinophils # (Manual) PT INR APTT D-Dimer Heparin Anti-Xa Level ABG pH POC ABG pCO2 POC ABG pO2 ABG pO2 ABG HCO3 ABG O2 Saturation ABG Base Excess ABG Hemoglobin ABG Oxyhemoglobin ABG Sodium ABG Potassium ABG Chloride ABG Glucose Oxyhemoglobin Carboxyhemoglobin Sodium Potassium Chloride Carbon Dioxide BUN Creatinine Glucose POC Glucose 163 H 220 H 195 H Hemoglobin A1c Lactic Acid Calcium Phosphorus Magnesium Ferritin Total Bilirubin Direct Bilirubin AST ALT Alkaline Phosphatase Lactate Dehydrogenase C-Reactive Protein Total Protein Albumin Triglycerides Lipase Arterial Blood Glucose Arterial Blood Ionized Calcium Urine WBC (Auto) Coronavirus (PCR) SARS-CoV-2 IgG Ab Crossmatch 07/04/20 07/04/20 07/04/20 03:25 04:00 04:00 WBC 14.9 H RBC 2.91 L Hgb 9.5 L Hct 29.2 L MCV 100 H MCH 33 H MCHC RDW 16.7 H Lymph % (Auto) 8.4 L Walker % (Auto) Lymph # (Auto) Walker # (Auto) 1.1 H Baso # (Auto) Seg Neutrophils % 84.2 H Seg Neuts % (Manual) Lymphocytes % (Manual) Nucleated RBC % Seg Neutrophils # 12.6 H Seg Neutrophils # Man Lymphocytes # (Manual) Monocytes # (Manual) Eosinophils # (Manual) PT INR APTT D-Dimer Heparin Anti-Xa Level ABG pH 7.474 H POC ABG pCO2 POC ABG pO2 51.8 L ABG pO2 ABG HCO3 ABG O2 Saturation ABG Base Excess ABG Hemoglobin ABG Oxyhemoglobin ABG Sodium ABG Potassium ABG Chloride ABG Glucose Oxyhemoglobin Carboxyhemoglobin Sodium Potassium 3.4 L Chloride 92.1 L Carbon Dioxide 34 H BUN Creatinine 0.3 L Glucose 173 H POC Glucose Hemoglobin A1c Lactic Acid Calcium Phosphorus Magnesium Ferritin Total Bilirubin Direct Bilirubin AST ALT Alkaline Phosphatase Lactate Dehydrogenase C-Reactive Protein Total Protein Albumin Triglycerides Lipase Arterial Blood Glucose Arterial Blood Ionized Calcium Urine WBC (Auto) Coronavirus (PCR) SARS-CoV-2 IgG Ab Crossmatch 07/04/20 07/04/20 07/04/20 06:18 11:39 17:18 WBC RBC Hgb Hct MCV MCH MCHC RDW Lymph % (Auto) Walker % (Auto) Lymph # (Auto) Walker # (Auto) Baso # (Auto) Seg Neutrophils % Seg Neuts % (Manual) Lymphocytes % (Manual) Nucleated RBC % Seg Neutrophils # Seg Neutrophils # Man Lymphocytes # (Manual) Monocytes # (Manual) Eosinophils # (Manual) PT INR APTT D-Dimer Heparin Anti-Xa Level ABG pH POC ABG pCO2 POC ABG pO2 ABG pO2 ABG HCO3 ABG O2 Saturation ABG Base Excess ABG Hemoglobin ABG Oxyhemoglobin ABG Sodium ABG Potassium ABG Chloride ABG Glucose Oxyhemoglobin Carboxyhemoglobin Sodium Potassium Chloride Carbon Dioxide BUN Creatinine Glucose POC Glucose 158 H 257 H 148 H Hemoglobin A1c Lactic Acid Calcium Phosphorus Magnesium Ferritin Total Bilirubin Direct Bilirubin AST ALT Alkaline Phosphatase Lactate Dehydrogenase C-Reactive Protein Total Protein Albumin Triglycerides Lipase Arterial Blood Glucose Arterial Blood Ionized Calcium Urine WBC (Auto) Coronavirus (PCR) SARS-CoV-2 IgG Ab Crossmatch 07/04/20 07/05/20 07/05/20 23:23 03:13 05:18 WBC 13.3 H RBC 2.90 L Hgb 9.8 L Hct 29.3 L MCV 101 H MCH 34 H MCHC RDW 17.0 H Lymph % (Auto) 11.1 L Walker % (Auto) Lymph # (Auto) Walker # (Auto) Baso # (Auto) Seg Neutrophils % 82.3 H Seg Neuts % (Manual) Lymphocytes % (Manual) Nucleated RBC % Seg Neutrophils # 10.9 H Seg Neutrophils # Man Lymphocytes # (Manual) Monocytes # (Manual) Eosinophils # (Manual) PT INR APTT D-Dimer Heparin Anti-Xa Level ABG pH 7.48 H POC ABG pCO2 52.0 H POC ABG pO2 ABG pO2 ABG HCO3 ABG O2 Saturation ABG Base Excess ABG Hemoglobin 10.0 L ABG Oxyhemoglobin ABG Sodium 131.0 L ABG Potassium 3.3 L ABG Chloride 93.0 L ABG Glucose 177 H Oxyhemoglobin Carboxyhemoglobin Sodium Potassium Chloride Carbon Dioxide BUN Creatinine Glucose POC Glucose 227 H Hemoglobin A1c Lactic Acid Calcium Phosphorus Magnesium Ferritin Total Bilirubin Direct Bilirubin AST ALT Alkaline Phosphatase Lactate Dehydrogenase C-Reactive Protein Total Protein Albumin Triglycerides Lipase Arterial Blood Glucose 177 H Arterial Blood Ionized Calcium Urine WBC (Auto) Coronavirus (PCR) SARS-CoV-2 IgG Ab Crossmatch 07/05/20 07/05/20 07/05/20 05:18 05:25 05:57 WBC RBC Hgb Hct MCV MCH MCHC RDW Lymph % (Auto) Walker % (Auto) Lymph # (Auto) Walker # (Auto) Baso # (Auto) Seg Neutrophils % Seg Neuts % (Manual) Lymphocytes % (Manual) Nucleated RBC % Seg Neutrophils # Seg Neutrophils # Man Lymphocytes # (Manual) Monocytes # (Manual) Eosinophils # (Manual) PT INR APTT D-Dimer Heparin Anti-Xa Level ABG pH 7.519 H POC ABG pCO2 POC ABG pO2 198.6 H ABG pO2 ABG HCO3 ABG O2 Saturation ABG Base Excess ABG Hemoglobin 10.3 L ABG Oxyhemoglobin 98.7 H ABG Sodium 133.6 L ABG Potassium 3.3 L ABG Chloride 93.0 L ABG Glucose 175 H Oxyhemoglobin Carboxyhemoglobin Sodium Potassium 3.4 L Chloride 92.5 L Carbon Dioxide 36 H BUN Creatinine 0.3 L Glucose 148 H POC Glucose 170 H Hemoglobin A1c Lactic Acid Calcium Phosphorus Magnesium Ferritin Total Bilirubin Direct Bilirubin AST ALT Alkaline Phosphatase Lactate Dehydrogenase C-Reactive Protein Total Protein Albumin Triglycerides Lipase Arterial Blood Glucose 175 H Arterial Blood Ionized Calcium Urine WBC (Auto) Coronavirus (PCR) SARS-CoV-2 IgG Ab Crossmatch 07/05/20 07/05/20 07/06/20 11:37 18:39 00:04 WBC RBC Hgb Hct MCV MCH MCHC RDW Lymph % (Auto) Walker % (Auto) Lymph # (Auto) Walker # (Auto) Baso # (Auto) Seg Neutrophils % Seg Neuts % (Manual) Lymphocytes % (Manual) Nucleated RBC % Seg Neutrophils # Seg Neutrophils # Man Lymphocytes # (Manual) Monocytes # (Manual) Eosinophils # (Manual) PT INR APTT D-Dimer Heparin Anti-Xa Level ABG pH POC ABG pCO2 POC ABG pO2 ABG pO2 ABG HCO3 ABG O2 Saturation ABG Base Excess ABG Hemoglobin ABG Oxyhemoglobin ABG Sodium ABG Potassium ABG Chloride ABG Glucose Oxyhemoglobin Carboxyhemoglobin Sodium Potassium Chloride Carbon Dioxide BUN Creatinine Glucose POC Glucose 195 H 200 H 222 H Hemoglobin A1c Lactic Acid Calcium Phosphorus Magnesium Ferritin Total Bilirubin Direct Bilirubin AST ALT Alkaline Phosphatase Lactate Dehydrogenase C-Reactive Protein Total Protein Albumin Triglycerides Lipase Arterial Blood Glucose Arterial Blood Ionized Calcium Urine WBC (Auto) Coronavirus (PCR) SARS-CoV-2 IgG Ab Crossmatch 07/06/20 07/06/20 07/06/20 05:25 06:52 06:52 WBC 15.8 H RBC 3.17 L Hgb 10.4 L Hct 31.5 L MCV 99 H MCH 33 H MCHC RDW 17.0 H Lymph % (Auto) Walker % (Auto) Lymph # (Auto) Walker # (Auto) Baso # (Auto) Seg Neutrophils % Seg Neuts % (Manual) Lymphocytes % (Manual) Nucleated RBC % Seg Neutrophils # Seg Neutrophils # Man Lymphocytes # (Manual) Monocytes # (Manual) Eosinophils # (Manual) PT INR APTT D-Dimer Heparin Anti-Xa Level ABG pH POC ABG pCO2 POC ABG pO2 ABG pO2 ABG HCO3 ABG O2 Saturation ABG Base Excess ABG Hemoglobin ABG Oxyhemoglobin ABG Sodium ABG Potassium ABG Chloride ABG Glucose Oxyhemoglobin Carboxyhemoglobin Sodium 135 L Potassium 3.4 L Chloride 91.9 L Carbon Dioxide 38 H BUN Creatinine 0.3 L Glucose 189 H POC Glucose 165 H Hemoglobin A1c Lactic Acid Calcium Phosphorus Magnesium Ferritin Total Bilirubin Direct Bilirubin AST ALT Alkaline Phosphatase Lactate Dehydrogenase C-Reactive Protein Total Protein Albumin Triglycerides Lipase Arterial Blood Glucose Arterial Blood Ionized Calcium Urine WBC (Auto) Coronavirus (PCR) SARS-CoV-2 IgG Ab Crossmatch 07/06/20 07/06/20 07/06/20 13:01 18:04 23:08 WBC RBC Hgb Hct MCV MCH MCHC RDW Lymph % (Auto) Walker % (Auto) Lymph # (Auto) Walker # (Auto) Baso # (Auto) Seg Neutrophils % Seg Neuts % (Manual) Lymphocytes % (Manual) Nucleated RBC % Seg Neutrophils # Seg Neutrophils # Man Lymphocytes # (Manual) Monocytes # (Manual) Eosinophils # (Manual) PT INR APTT D-Dimer Heparin Anti-Xa Level ABG pH POC ABG pCO2 POC ABG pO2 ABG pO2 ABG HCO3 ABG O2 Saturation ABG Base Excess ABG Hemoglobin ABG Oxyhemoglobin ABG Sodium ABG Potassium ABG Chloride ABG Glucose Oxyhemoglobin Carboxyhemoglobin Sodium Potassium Chloride Carbon Dioxide BUN Creatinine Glucose POC Glucose 195 H 169 H 173 H Hemoglobin A1c Lactic Acid Calcium Phosphorus Magnesium Ferritin Total Bilirubin Direct Bilirubin AST ALT Alkaline Phosphatase Lactate Dehydrogenase C-Reactive Protein Total Protein Albumin Triglycerides Lipase Arterial Blood Glucose Arterial Blood Ionized Calcium Urine WBC (Auto) Coronavirus (PCR) SARS-CoV-2 IgG Ab Crossmatch 07/07/20 07/07/20 07/07/20 05:35 05:35 05:39 WBC 17.6 H RBC 3.16 L Hgb 10.4 L Hct 31.5 L MCV 100 H MCH 33 H MCHC RDW 16.7 H Lymph % (Auto) 11.1 L Walker % (Auto) Lymph # (Auto) Walker # (Auto) 1.0 H Baso # (Auto) Seg Neutrophils % 83.0 H Seg Neuts % (Manual) Lymphocytes % (Manual) Nucleated RBC % Seg Neutrophils # 14.6 H Seg Neutrophils # Man Lymphocytes # (Manual) Monocytes # (Manual) Eosinophils # (Manual) PT INR APTT D-Dimer Heparin Anti-Xa Level ABG pH POC ABG pCO2 POC ABG pO2 ABG pO2 ABG HCO3 ABG O2 Saturation ABG Base Excess ABG Hemoglobin ABG Oxyhemoglobin ABG Sodium ABG Potassium ABG Chloride ABG Glucose Oxyhemoglobin Carboxyhemoglobin Sodium 135 L Potassium 3.4 L Chloride 94.3 L Carbon Dioxide 32 H BUN Creatinine 0.2 L Glucose 240 H POC Glucose 191 H Hemoglobin A1c Lactic Acid Calcium Phosphorus Magnesium Ferritin Total Bilirubin Direct Bilirubin AST ALT Alkaline Phosphatase Lactate Dehydrogenase C-Reactive Protein Total Protein Albumin Triglycerides Lipase Arterial Blood Glucose Arterial Blood Ionized Calcium Urine WBC (Auto) Coronavirus (PCR) SARS-CoV-2 IgG Ab Crossmatch 07/07/20 07/07/20 07/07/20 12:08 16:39 23:41 WBC RBC Hgb Hct MCV MCH MCHC RDW Lymph % (Auto) Walker % (Auto) Lymph # (Auto) Walker # (Auto) Baso # (Auto) Seg Neutrophils % Seg Neuts % (Manual) Lymphocytes % (Manual) Nucleated RBC % Seg Neutrophils # Seg Neutrophils # Man Lymphocytes # (Manual) Monocytes # (Manual) Eosinophils # (Manual) PT INR APTT D-Dimer Heparin Anti-Xa Level ABG pH POC ABG pCO2 POC ABG pO2 ABG pO2 ABG HCO3 ABG O2 Saturation ABG Base Excess ABG Hemoglobin ABG Oxyhemoglobin ABG Sodium ABG Potassium ABG Chloride ABG Glucose Oxyhemoglobin Carboxyhemoglobin Sodium Potassium Chloride Carbon Dioxide BUN Creatinine Glucose POC Glucose 248 H 209 H 231 H Hemoglobin A1c Lactic Acid Calcium Phosphorus Magnesium Ferritin Total Bilirubin Direct Bilirubin AST ALT Alkaline Phosphatase Lactate Dehydrogenase C-Reactive Protein Total Protein Albumin Triglycerides Lipase Arterial Blood Glucose Arterial Blood Ionized Calcium Urine WBC (Auto) Coronavirus (PCR) SARS-CoV-2 IgG Ab Crossmatch 07/08/20 07/08/20 07/08/20 04:58 04:58 05:38 WBC 21.0 H RBC 2.86 L Hgb 9.2 L Hct 28.6 L MCV 100 H MCH MCHC RDW 16.7 H Lymph % (Auto) Walker % (Auto) Lymph # (Auto) Walker # (Auto) Baso # (Auto) Seg Neutrophils % Seg Neuts % (Manual) 93.0 H Lymphocytes % (Manual) 3.0 L Nucleated RBC % Seg Neutrophils # Seg Neutrophils # Man 19.5 H Lymphocytes # (Manual) 0.6 L Monocytes # (Manual) Eosinophils # (Manual) PT INR APTT D-Dimer Heparin Anti-Xa Level ABG pH POC ABG pCO2 POC ABG pO2 ABG pO2 ABG HCO3 ABG O2 Saturation ABG Base Excess ABG Hemoglobin ABG Oxyhemoglobin ABG Sodium ABG Potassium ABG Chloride ABG Glucose Oxyhemoglobin Carboxyhemoglobin Sodium Potassium 3.0 L Chloride Carbon Dioxide BUN Creatinine 0.2 L Glucose 201 H POC Glucose 161 H Hemoglobin A1c Lactic Acid Calcium 7.9 L D Phosphorus Magnesium Ferritin Total Bilirubin Direct Bilirubin AST ALT Alkaline Phosphatase Lactate Dehydrogenase C-Reactive Protein Total Protein Albumin Triglycerides Lipase Arterial Blood Glucose Arterial Blood Ionized Calcium Urine WBC (Auto) Coronavirus (PCR) SARS-CoV-2 IgG Ab Crossmatch 07/08/20 07/08/20 07/08/20 12:19 16:26 Unknown WBC RBC Hgb Hct MCV MCH MCHC RDW Lymph % (Auto) Walker % (Auto) Lymph # (Auto) Walker # (Auto) Baso # (Auto) Seg Neutrophils % Seg Neuts % (Manual) Lymphocytes % (Manual) Nucleated RBC % Seg Neutrophils # Seg Neutrophils # Man Lymphocytes # (Manual) Monocytes # (Manual) Eosinophils # (Manual) PT INR APTT D-Dimer Heparin Anti-Xa Level ABG pH POC ABG pCO2 POC ABG pO2 ABG pO2 75.3 L ABG HCO3 34.3 H ABG O2 Saturation ABG Base Excess 8.7 H ABG Hemoglobin 10.2 L ABG Oxyhemoglobin ABG Sodium ABG Potassium ABG Chloride ABG Glucose Oxyhemoglobin 93.7 L Carboxyhemoglobin Sodium Potassium Chloride Carbon Dioxide BUN Creatinine Glucose POC Glucose 152 H 173 H Hemoglobin A1c Lactic Acid Calcium Phosphorus Magnesium Ferritin Total Bilirubin Direct Bilirubin AST ALT Alkaline Phosphatase Lactate Dehydrogenase C-Reactive Protein Total Protein Albumin Triglycerides Lipase Arterial Blood Glucose Arterial Blood Ionized Calcium Urine WBC (Auto) Coronavirus (PCR) SARS-CoV-2 IgG Ab Crossmatch 07/09/20 07/09/20 07/09/20 00:01 06:00 11:55 WBC RBC Hgb Hct MCV MCH MCHC RDW Lymph % (Auto) Walker % (Auto) Lymph # (Auto) Walker # (Auto) Baso # (Auto) Seg Neutrophils % Seg Neuts % (Manual) Lymphocytes % (Manual) Nucleated RBC % Seg Neutrophils # Seg Neutrophils # Man Lymphocytes # (Manual) Monocytes # (Manual) Eosinophils # (Manual) PT INR APTT D-Dimer Heparin Anti-Xa Level ABG pH POC ABG pCO2 POC ABG pO2 ABG pO2 ABG HCO3 ABG O2 Saturation ABG Base Excess ABG Hemoglobin ABG Oxyhemoglobin ABG Sodium ABG Potassium ABG Chloride ABG Glucose Oxyhemoglobin Carboxyhemoglobin Sodium Potassium Chloride Carbon Dioxide BUN Creatinine Glucose POC Glucose 207 H 141 H 228 H Hemoglobin A1c Lactic Acid Calcium Phosphorus Magnesium Ferritin Total Bilirubin Direct Bilirubin AST ALT Alkaline Phosphatase Lactate Dehydrogenase C-Reactive Protein Total Protein Albumin Triglycerides Lipase Arterial Blood Glucose Arterial Blood Ionized Calcium Urine WBC (Auto) Coronavirus (PCR) SARS-CoV-2 IgG Ab Crossmatch 07/09/20 07/09/20 07/09/20 16:47 23:53 Unknown WBC RBC Hgb Hct MCV MCH MCHC RDW Lymph % (Auto) Walker % (Auto) Lymph # (Auto) Walker # (Auto) Baso # (Auto) Seg Neutrophils % Seg Neuts % (Manual) Lymphocytes % (Manual) Nucleated RBC % Seg Neutrophils # Seg Neutrophils # Man Lymphocytes # (Manual) Monocytes # (Manual) Eosinophils # (Manual) PT INR APTT D-Dimer Heparin Anti-Xa Level ABG pH POC ABG pCO2 POC ABG pO2 ABG pO2 ABG HCO3 ABG O2 Saturation ABG Base Excess ABG Hemoglobin ABG Oxyhemoglobin ABG Sodium ABG Potassium ABG Chloride ABG Glucose Oxyhemoglobin Carboxyhemoglobin Sodium 132 L Potassium Chloride 92.7 L Carbon Dioxide 35 H BUN Creatinine 0.2 L Glucose 234 H POC Glucose 136 H 219 H Hemoglobin A1c Lactic Acid Calcium Phosphorus Magnesium Ferritin Total Bilirubin Direct Bilirubin AST ALT Alkaline Phosphatase Lactate Dehydrogenase C-Reactive Protein Total Protein Albumin Triglycerides Lipase Arterial Blood Glucose Arterial Blood Ionized Calcium Urine WBC (Auto) Coronavirus (PCR) SARS-CoV-2 IgG Ab Crossmatch 07/10/20 07/10/20 07/10/20 05:20 12:05 18:38 WBC RBC Hgb Hct MCV MCH MCHC RDW Lymph % (Auto) Walker % (Auto) Lymph # (Auto) Walker # (Auto) Baso # (Auto) Seg Neutrophils % Seg Neuts % (Manual) Lymphocytes % (Manual) Nucleated RBC % Seg Neutrophils # Seg Neutrophils # Man Lymphocytes # (Manual) Monocytes # (Manual) Eosinophils # (Manual) PT INR APTT D-Dimer Heparin Anti-Xa Level ABG pH POC ABG pCO2 POC ABG pO2 ABG pO2 ABG HCO3 ABG O2 Saturation ABG Base Excess ABG Hemoglobin ABG Oxyhemoglobin ABG Sodium ABG Potassium ABG Chloride ABG Glucose Oxyhemoglobin Carboxyhemoglobin Sodium Potassium Chloride Carbon Dioxide BUN Creatinine Glucose POC Glucose 221 H 174 H 152 H Hemoglobin A1c Lactic Acid Calcium Phosphorus Magnesium Ferritin Total Bilirubin Direct Bilirubin AST ALT Alkaline Phosphatase Lactate Dehydrogenase C-Reactive Protein Total Protein Albumin Triglycerides Lipase Arterial Blood Glucose Arterial Blood Ionized Calcium Urine WBC (Auto) Coronavirus (PCR) SARS-CoV-2 IgG Ab Crossmatch 07/11/20 07/11/20 07/11/20 00:16 05:42 08:13 WBC 11.9 H RBC 3.13 L Hgb 10.2 L Hct 31.2 L MCV 100 H MCH 33 H MCHC RDW 16.4 H Lymph % (Auto) Walker % (Auto) 9.3 H Lymph # (Auto) Walker # (Auto) 1.1 H Baso # (Auto) Seg Neutrophils % 72.7 H Seg Neuts % (Manual) Lymphocytes % (Manual) Nucleated RBC % Seg Neutrophils # 8.7 H Seg Neutrophils # Man Lymphocytes # (Manual) Monocytes # (Manual) Eosinophils # (Manual) PT INR APTT D-Dimer Heparin Anti-Xa Level ABG pH POC ABG pCO2 POC ABG pO2 ABG pO2 ABG HCO3 ABG O2 Saturation ABG Base Excess ABG Hemoglobin ABG Oxyhemoglobin ABG Sodium ABG Potassium ABG Chloride ABG Glucose Oxyhemoglobin Carboxyhemoglobin Sodium Potassium Chloride Carbon Dioxide BUN Creatinine Glucose POC Glucose 170 H 186 H Hemoglobin A1c Lactic Acid Calcium Phosphorus Magnesium Ferritin Total Bilirubin Direct Bilirubin AST ALT Alkaline Phosphatase Lactate Dehydrogenase C-Reactive Protein Total Protein Albumin Triglycerides Lipase Arterial Blood Glucose Arterial Blood Ionized Calcium Urine WBC (Auto) Coronavirus (PCR) SARS-CoV-2 IgG Ab Crossmatch 07/11/20 07/11/20 07/11/20 08:13 11:35 18:07 WBC RBC Hgb Hct MCV MCH MCHC RDW Lymph % (Auto) Walker % (Auto) Lymph # (Auto) Walker # (Auto) Baso # (Auto) Seg Neutrophils % Seg Neuts % (Manual) Lymphocytes % (Manual) Nucleated RBC % Seg Neutrophils # Seg Neutrophils # Man Lymphocytes # (Manual) Monocytes # (Manual) Eosinophils # (Manual) PT INR APTT D-Dimer Heparin Anti-Xa Level ABG pH POC ABG pCO2 POC ABG pO2 ABG pO2 ABG HCO3 ABG O2 Saturation ABG Base Excess ABG Hemoglobin ABG Oxyhemoglobin ABG Sodium ABG Potassium ABG Chloride ABG Glucose Oxyhemoglobin Carboxyhemoglobin Sodium 135 L Potassium Chloride 92.8 L Carbon Dioxide 38 H BUN Creatinine 0.2 L Glucose 132 H POC Glucose 129 H 156 H Hemoglobin A1c Lactic Acid Calcium Phosphorus Magnesium Ferritin Total Bilirubin Direct Bilirubin AST ALT Alkaline Phosphatase Lactate Dehydrogenase C-Reactive Protein Total Protein Albumin Triglycerides Lipase Arterial Blood Glucose Arterial Blood Ionized Calcium Urine WBC (Auto) Coronavirus (PCR) SARS-CoV-2 IgG Ab Crossmatch 07/11/20 07/11/20 07/12/20 18:36 23:18 05:28 WBC RBC Hgb Hct MCV MCH MCHC RDW Lymph % (Auto) Walker % (Auto) Lymph # (Auto) Walker # (Auto) Baso # (Auto) Seg Neutrophils % Seg Neuts % (Manual) Lymphocytes % (Manual) Nucleated RBC % Seg Neutrophils # Seg Neutrophils # Man Lymphocytes # (Manual) Monocytes # (Manual) Eosinophils # (Manual) PT INR APTT D-Dimer Heparin Anti-Xa Level ABG pH POC ABG pCO2 POC ABG pO2 70.9 L ABG pO2 ABG HCO3 ABG O2 Saturation ABG Base Excess ABG Hemoglobin 10.8 L ABG Oxyhemoglobin 92.5 L ABG Sodium 131.8 L ABG Potassium 3.2 L ABG Chloride 91.0 L ABG Glucose 181 H Oxyhemoglobin Carboxyhemoglobin Sodium Potassium Chloride Carbon Dioxide BUN Creatinine Glucose POC Glucose 189 H 190 H Hemoglobin A1c Lactic Acid Calcium Phosphorus Magnesium Ferritin Total Bilirubin Direct Bilirubin AST ALT Alkaline Phosphatase Lactate Dehydrogenase C-Reactive Protein Total Protein Albumin Triglycerides Lipase Arterial Blood Glucose 181 H Arterial Blood Ionized Calcium Urine WBC (Auto) Coronavirus (PCR) SARS-CoV-2 IgG Ab Crossmatch 07/12/20 07/12/20 07/12/20 11:33 17:45 23:59 WBC RBC Hgb Hct MCV MCH MCHC RDW Lymph % (Auto) Walker % (Auto) Lymph # (Auto) Walker # (Auto) Baso # (Auto) Seg Neutrophils % Seg Neuts % (Manual) Lymphocytes % (Manual) Nucleated RBC % Seg Neutrophils # Seg Neutrophils # Man Lymphocytes # (Manual) Monocytes # (Manual) Eosinophils # (Manual) PT INR APTT D-Dimer Heparin Anti-Xa Level ABG pH POC ABG pCO2 POC ABG pO2 ABG pO2 ABG HCO3 ABG O2 Saturation ABG Base Excess ABG Hemoglobin ABG Oxyhemoglobin ABG Sodium ABG Potassium ABG Chloride ABG Glucose Oxyhemoglobin Carboxyhemoglobin Sodium Potassium Chloride Carbon Dioxide BUN Creatinine Glucose POC Glucose 151 H 211 H 169 H Hemoglobin A1c Lactic Acid Calcium Phosphorus Magnesium Ferritin Total Bilirubin Direct Bilirubin AST ALT Alkaline Phosphatase Lactate Dehydrogenase C-Reactive Protein Total Protein Albumin Triglycerides Lipase Arterial Blood Glucose Arterial Blood Ionized Calcium Urine WBC (Auto) Coronavirus (PCR) SARS-CoV-2 IgG Ab Crossmatch 07/13/20 07/13/20 07/13/20 05:44 08:31 08:31 WBC 21.3 H RBC 2.92 L Hgb 9.7 L Hct 28.7 L MCV 98 H MCH 33 H MCHC RDW 16.8 H Lymph % (Auto) Walker % (Auto) Lymph # (Auto) Walker # (Auto) Baso # (Auto) Seg Neutrophils % Seg Neuts % (Manual) 96.0 H Lymphocytes % (Manual) 2.0 L Nucleated RBC % Seg Neutrophils # Seg Neutrophils # Man 20.4 H Lymphocytes # (Manual) 0.4 L Monocytes # (Manual) Eosinophils # (Manual) PT INR APTT D-Dimer Heparin Anti-Xa Level ABG pH POC ABG pCO2 POC ABG pO2 ABG pO2 ABG HCO3 ABG O2 Saturation ABG Base Excess ABG Hemoglobin ABG Oxyhemoglobin ABG Sodium ABG Potassium ABG Chloride ABG Glucose Oxyhemoglobin Carboxyhemoglobin Sodium Potassium 2.9 L* D Chloride 94.4 L Carbon Dioxide 37 H BUN Creatinine 0.2 L Glucose 166 H POC Glucose 122 H Hemoglobin A1c Lactic Acid Calcium Phosphorus Magnesium Ferritin Total Bilirubin Direct Bilirubin AST ALT Alkaline Phosphatase Lactate Dehydrogenase C-Reactive Protein Total Protein Albumin Triglycerides Lipase Arterial Blood Glucose Arterial Blood Ionized Calcium Urine WBC (Auto) Coronavirus (PCR) SARS-CoV-2 IgG Ab Crossmatch 07/13/20 07/13/20 07/13/20 11:54 13:52 17:40 WBC RBC Hgb Hct MCV MCH MCHC RDW Lymph % (Auto) Walker % (Auto) Lymph # (Auto) Walker # (Auto) Baso # (Auto) Seg Neutrophils % Seg Neuts % (Manual) Lymphocytes % (Manual) Nucleated RBC % Seg Neutrophils # Seg Neutrophils # Man Lymphocytes # (Manual) Monocytes # (Manual) Eosinophils # (Manual) PT INR APTT D-Dimer Heparin Anti-Xa Level ABG pH 7.477 H POC ABG pCO2 54.4 H POC ABG pO2 126.8 H ABG pO2 ABG HCO3 ABG O2 Saturation ABG Base Excess ABG Hemoglobin 11.5 L ABG Oxyhemoglobin ABG Sodium ABG Potassium 3.2 L ABG Chloride 92.0 L ABG Glucose 169 H Oxyhemoglobin Carboxyhemoglobin Sodium Potassium Chloride Carbon Dioxide BUN Creatinine Glucose POC Glucose 132 H 128 H Hemoglobin A1c Lactic Acid Calcium Phosphorus Magnesium Ferritin Total Bilirubin Direct Bilirubin AST ALT Alkaline Phosphatase Lactate Dehydrogenase C-Reactive Protein Total Protein Albumin Triglycerides Lipase Arterial Blood Glucose 169 H Arterial Blood Ionized Calcium Urine WBC (Auto) Coronavirus (PCR) SARS-CoV-2 IgG Ab Crossmatch 07/14/20 07/14/20 07/15/20 07:49 17:09 05:27 WBC RBC Hgb Hct MCV MCH MCHC RDW Lymph % (Auto) Walker % (Auto) Lymph # (Auto) Walker # (Auto) Baso # (Auto) Seg Neutrophils % Seg Neuts % (Manual) Lymphocytes % (Manual) Nucleated RBC % Seg Neutrophils # Seg Neutrophils # Man Lymphocytes # (Manual) Monocytes # (Manual) Eosinophils # (Manual) PT INR APTT D-Dimer Heparin Anti-Xa Level ABG pH POC ABG pCO2 POC ABG pO2 ABG pO2 ABG HCO3 ABG O2 Saturation ABG Base Excess ABG Hemoglobin ABG Oxyhemoglobin ABG Sodium ABG Potassium ABG Chloride ABG Glucose Oxyhemoglobin Carboxyhemoglobin Sodium Potassium 2.7 L* Chloride 94.0 L Carbon Dioxide 37 H BUN Creatinine 0.3 L Glucose 110 H POC Glucose 152 H 61 L Hemoglobin A1c Lactic Acid Calcium Phosphorus Magnesium Ferritin Total Bilirubin Direct Bilirubin AST ALT Alkaline Phosphatase Lactate Dehydrogenase C-Reactive Protein Total Protein Albumin Triglycerides Lipase Arterial Blood Glucose Arterial Blood Ionized Calcium Urine WBC (Auto) Coronavirus (PCR) SARS-CoV-2 IgG Ab Crossmatch 07/15/20 07/15/20 07/15/20 05:31 11:49 17:18 WBC RBC Hgb Hct MCV MCH MCHC RDW Lymph % (Auto) Walker % (Auto) Lymph # (Auto) Walker # (Auto) Baso # (Auto) Seg Neutrophils % Seg Neuts % (Manual) Lymphocytes % (Manual) Nucleated RBC % Seg Neutrophils # Seg Neutrophils # Man Lymphocytes # (Manual) Monocytes # (Manual) Eosinophils # (Manual) PT INR APTT D-Dimer Heparin Anti-Xa Level ABG pH POC ABG pCO2 POC ABG pO2 ABG pO2 ABG HCO3 ABG O2 Saturation ABG Base Excess ABG Hemoglobin ABG Oxyhemoglobin ABG Sodium ABG Potassium ABG Chloride ABG Glucose Oxyhemoglobin Carboxyhemoglobin Sodium Potassium 3.2 L Chloride 91.2 L Carbon Dioxide 33 H BUN Creatinine 0.3 L Glucose 139 H POC Glucose 148 H 196 H Hemoglobin A1c Lactic Acid Calcium Phosphorus Magnesium Ferritin Total Bilirubin Direct Bilirubin AST ALT Alkaline Phosphatase Lactate Dehydrogenase C-Reactive Protein Total Protein Albumin Triglycerides Lipase Arterial Blood Glucose Arterial Blood Ionized Calcium Urine WBC (Auto) Coronavirus (PCR) SARS-CoV-2 IgG Ab Crossmatch 07/15/20 07/16/20 07/16/20 23:08 05:18 05:19 WBC 11.3 H RBC 3.10 L Hgb 10.0 L Hct 30.3 L MCV 98 H MCH MCHC RDW 16.3 H Lymph % (Auto) Walker % (Auto) Lymph # (Auto) Walker # (Auto) Baso # (Auto) Seg Neutrophils % Seg Neuts % (Manual) Lymphocytes % (Manual) Nucleated RBC % Seg Neutrophils # Seg Neutrophils # Man Lymphocytes # (Manual) Monocytes # (Manual) Eosinophils # (Manual) PT INR APTT D-Dimer Heparin Anti-Xa Level ABG pH POC ABG pCO2 POC ABG pO2 ABG pO2 ABG HCO3 ABG O2 Saturation ABG Base Excess ABG Hemoglobin ABG Oxyhemoglobin ABG Sodium ABG Potassium ABG Chloride ABG Glucose Oxyhemoglobin Carboxyhemoglobin Sodium Potassium Chloride Carbon Dioxide BUN Creatinine Glucose POC Glucose 131 H 160 H Hemoglobin A1c Lactic Acid Calcium Phosphorus Magnesium Ferritin Total Bilirubin Direct Bilirubin AST ALT Alkaline Phosphatase Lactate Dehydrogenase C-Reactive Protein Total Protein Albumin Triglycerides Lipase Arterial Blood Glucose Arterial Blood Ionized Calcium Urine WBC (Auto) Coronavirus (PCR) SARS-CoV-2 IgG Ab Crossmatch 07/16/20 07/16/20 07/16/20 05:19 11:45 17:17 WBC RBC Hgb Hct MCV MCH MCHC RDW Lymph % (Auto) Walker % (Auto) Lymph # (Auto) Walker # (Auto) Baso # (Auto) Seg Neutrophils % Seg Neuts % (Manual) Lymphocytes % (Manual) Nucleated RBC % Seg Neutrophils # Seg Neutrophils # Man Lymphocytes # (Manual) Monocytes # (Manual) Eosinophils # (Manual) PT INR APTT D-Dimer Heparin Anti-Xa Level ABG pH POC ABG pCO2 POC ABG pO2 ABG pO2 ABG HCO3 ABG O2 Saturation ABG Base Excess ABG Hemoglobin ABG Oxyhemoglobin ABG Sodium ABG Potassium ABG Chloride ABG Glucose Oxyhemoglobin Carboxyhemoglobin Sodium 132 L Potassium 3.4 L Chloride 89.9 L Carbon Dioxide 39 H BUN Creatinine 0.3 L Glucose 174 H POC Glucose 169 H 143 H Hemoglobin A1c Lactic Acid Calcium Phosphorus Magnesium Ferritin Total Bilirubin Direct Bilirubin AST ALT Alkaline Phosphatase Lactate Dehydrogenase C-Reactive Protein Total Protein Albumin Triglycerides Lipase Arterial Blood Glucose Arterial Blood Ionized Calcium Urine WBC (Auto) Coronavirus (PCR) SARS-CoV-2 IgG Ab Crossmatch 07/16/20 07/17/20 07/17/20 23:54 05:32 11:26 WBC RBC Hgb Hct MCV MCH MCHC RDW Lymph % (Auto) Walker % (Auto) Lymph # (Auto) Walker # (Auto) Baso # (Auto) Seg Neutrophils % Seg Neuts % (Manual) Lymphocytes % (Manual) Nucleated RBC % Seg Neutrophils # Seg Neutrophils # Man Lymphocytes # (Manual) Monocytes # (Manual) Eosinophils # (Manual) PT INR APTT D-Dimer Heparin Anti-Xa Level ABG pH POC ABG pCO2 POC ABG pO2 ABG pO2 ABG HCO3 ABG O2 Saturation ABG Base Excess ABG Hemoglobin ABG Oxyhemoglobin ABG Sodium ABG Potassium ABG Chloride ABG Glucose Oxyhemoglobin Carboxyhemoglobin Sodium Potassium Chloride Carbon Dioxide BUN Creatinine Glucose POC Glucose 147 H 149 H 211 H Hemoglobin A1c Lactic Acid Calcium Phosphorus Magnesium Ferritin Total Bilirubin Direct Bilirubin AST ALT Alkaline Phosphatase Lactate Dehydrogenase C-Reactive Protein Total Protein Albumin Triglycerides Lipase Arterial Blood Glucose Arterial Blood Ionized Calcium Urine WBC (Auto) Coronavirus (PCR) SARS-CoV-2 IgG Ab Crossmatch 07/17/20 07/17/20 07/18/20 18:16 23:12 06:15 WBC RBC Hgb Hct MCV MCH MCHC RDW Lymph % (Auto) Walker % (Auto) Lymph # (Auto) Walker # (Auto) Baso # (Auto) Seg Neutrophils % Seg Neuts % (Manual) Lymphocytes % (Manual) Nucleated RBC % Seg Neutrophils # Seg Neutrophils # Man Lymphocytes # (Manual) Monocytes # (Manual) Eosinophils # (Manual) PT INR APTT D-Dimer Heparin Anti-Xa Level ABG pH POC ABG pCO2 POC ABG pO2 ABG pO2 ABG HCO3 ABG O2 Saturation ABG Base Excess ABG Hemoglobin ABG Oxyhemoglobin ABG Sodium ABG Potassium ABG Chloride ABG Glucose Oxyhemoglobin Carboxyhemoglobin Sodium Potassium Chloride Carbon Dioxide BUN Creatinine Glucose POC Glucose 161 H 136 H 108 H Hemoglobin A1c Lactic Acid Calcium Phosphorus Magnesium Ferritin Total Bilirubin Direct Bilirubin AST ALT Alkaline Phosphatase Lactate Dehydrogenase C-Reactive Protein Total Protein Albumin Triglycerides Lipase Arterial Blood Glucose Arterial Blood Ionized Calcium Urine WBC (Auto) Coronavirus (PCR) SARS-CoV-2 IgG Ab Crossmatch 07/18/20 07/18/20 07/18/20 08:47 08:47 11:50 WBC 17.7 H RBC 3.29 L Hgb 10.5 L Hct 31.8 L MCV 97 H MCH MCHC RDW 16.9 H Lymph % (Auto) Walker % (Auto) 8.6 H Lymph # (Auto) Walker # (Auto) 1.5 H Baso # (Auto) Seg Neutrophils % 74.6 H Seg Neuts % (Manual) Lymphocytes % (Manual) Nucleated RBC % Seg Neutrophils # 13.2 H Seg Neutrophils # Man Lymphocytes # (Manual) Monocytes # (Manual) Eosinophils # (Manual) PT INR APTT D-Dimer Heparin Anti-Xa Level ABG pH POC ABG pCO2 POC ABG pO2 ABG pO2 ABG HCO3 ABG O2 Saturation ABG Base Excess ABG Hemoglobin ABG Oxyhemoglobin ABG Sodium ABG Potassium ABG Chloride ABG Glucose Oxyhemoglobin Carboxyhemoglobin Sodium Potassium 2.8 L* Chloride 92.6 L Carbon Dioxide 40 H BUN Creatinine 0.3 L Glucose 177 H POC Glucose 178 H Hemoglobin A1c Lactic Acid Calcium Phosphorus Magnesium Ferritin Total Bilirubin Direct Bilirubin AST ALT Alkaline Phosphatase Lactate Dehydrogenase C-Reactive Protein Total Protein Albumin Triglycerides Lipase Arterial Blood Glucose Arterial Blood Ionized Calcium Urine WBC (Auto) Coronavirus (PCR) SARS-CoV-2 IgG Ab Crossmatch 07/18/20 07/18/20 07/19/20 17:18 23:33 05:22 WBC RBC Hgb Hct MCV MCH MCHC RDW Lymph % (Auto) Walker % (Auto) Lymph # (Auto) Walker # (Auto) Baso # (Auto) Seg Neutrophils % Seg Neuts % (Manual) Lymphocytes % (Manual) Nucleated RBC % Seg Neutrophils # Seg Neutrophils # Man Lymphocytes # (Manual) Monocytes # (Manual) Eosinophils # (Manual) PT INR APTT D-Dimer Heparin Anti-Xa Level ABG pH POC ABG pCO2 POC ABG pO2 ABG pO2 ABG HCO3 ABG O2 Saturation ABG Base Excess ABG Hemoglobin ABG Oxyhemoglobin ABG Sodium ABG Potassium ABG Chloride ABG Glucose Oxyhemoglobin Carboxyhemoglobin Sodium Potassium Chloride Carbon Dioxide BUN Creatinine Glucose POC Glucose 171 H 162 H 166 H Hemoglobin A1c Lactic Acid Calcium Phosphorus Magnesium Ferritin Total Bilirubin Direct Bilirubin AST ALT Alkaline Phosphatase Lactate Dehydrogenase C-Reactive Protein Total Protein Albumin Triglycerides Lipase Arterial Blood Glucose Arterial Blood Ionized Calcium Urine WBC (Auto) Coronavirus (PCR) SARS-CoV-2 IgG Ab Crossmatch 07/19/20 07/19/20 07/19/20 12:00 16:27 23:41 WBC RBC Hgb Hct MCV MCH MCHC RDW Lymph % (Auto) Walker % (Auto) Lymph # (Auto) Walker # (Auto) Baso # (Auto) Seg Neutrophils % Seg Neuts % (Manual) Lymphocytes % (Manual) Nucleated RBC % Seg Neutrophils # Seg Neutrophils # Man Lymphocytes # (Manual) Monocytes # (Manual) Eosinophils # (Manual) PT INR APTT D-Dimer Heparin Anti-Xa Level ABG pH POC ABG pCO2 POC ABG pO2 ABG pO2 ABG HCO3 ABG O2 Saturation ABG Base Excess ABG Hemoglobin ABG Oxyhemoglobin ABG Sodium ABG Potassium ABG Chloride ABG Glucose Oxyhemoglobin Carboxyhemoglobin Sodium Potassium Chloride Carbon Dioxide BUN Creatinine Glucose POC Glucose 201 H 205 H 106 H Hemoglobin A1c Lactic Acid Calcium Phosphorus Magnesium Ferritin Total Bilirubin Direct Bilirubin AST ALT Alkaline Phosphatase Lactate Dehydrogenase C-Reactive Protein Total Protein Albumin Triglycerides Lipase Arterial Blood Glucose Arterial Blood Ionized Calcium Urine WBC (Auto) Coronavirus (PCR) SARS-CoV-2 IgG Ab Crossmatch 07/20/20 07/20/20 07/20/20 05:28 11:18 17:30 WBC RBC Hgb Hct MCV MCH MCHC RDW Lymph % (Auto) Walker % (Auto) Lymph # (Auto) Walker # (Auto) Baso # (Auto) Seg Neutrophils % Seg Neuts % (Manual) Lymphocytes % (Manual) Nucleated RBC % Seg Neutrophils # Seg Neutrophils # Man Lymphocytes # (Manual) Monocytes # (Manual) Eosinophils # (Manual) PT INR APTT D-Dimer Heparin Anti-Xa Level ABG pH POC ABG pCO2 POC ABG pO2 ABG pO2 ABG HCO3 ABG O2 Saturation ABG Base Excess ABG Hemoglobin ABG Oxyhemoglobin ABG Sodium ABG Potassium ABG Chloride ABG Glucose Oxyhemoglobin Carboxyhemoglobin Sodium Potassium Chloride Carbon Dioxide BUN Creatinine Glucose POC Glucose 130 H 195 H 141 H Hemoglobin A1c Lactic Acid Calcium Phosphorus Magnesium Ferritin Total Bilirubin Direct Bilirubin AST ALT Alkaline Phosphatase Lactate Dehydrogenase C-Reactive Protein Total Protein Albumin Triglycerides Lipase Arterial Blood Glucose Arterial Blood Ionized Calcium Urine WBC (Auto) Coronavirus (PCR) SARS-CoV-2 IgG Ab Crossmatch 07/20/20 07/21/20 07/21/20 23:26 05:03 17:03 WBC RBC Hgb Hct MCV MCH MCHC RDW Lymph % (Auto) Walker % (Auto) Lymph # (Auto) Walker # (Auto) Baso # (Auto) Seg Neutrophils % Seg Neuts % (Manual) Lymphocytes % (Manual) Nucleated RBC % Seg Neutrophils # Seg Neutrophils # Man Lymphocytes # (Manual) Monocytes # (Manual) Eosinophils # (Manual) PT INR APTT D-Dimer Heparin Anti-Xa Level ABG pH POC ABG pCO2 POC ABG pO2 ABG pO2 ABG HCO3 ABG O2 Saturation ABG Base Excess ABG Hemoglobin ABG Oxyhemoglobin ABG Sodium ABG Potassium ABG Chloride ABG Glucose Oxyhemoglobin Carboxyhemoglobin Sodium Potassium Chloride Carbon Dioxide BUN Creatinine Glucose POC Glucose 116 H 142 H 181 H Hemoglobin A1c Lactic Acid Calcium Phosphorus Magnesium Ferritin Total Bilirubin Direct Bilirubin AST ALT Alkaline Phosphatase Lactate Dehydrogenase C-Reactive Protein Total Protein Albumin Triglycerides Lipase Arterial Blood Glucose Arterial Blood Ionized Calcium Urine WBC (Auto) Coronavirus (PCR) SARS-CoV-2 IgG Ab Crossmatch 07/21/20 07/22/20 07/22/20 23:51 06:09 11:40 WBC RBC Hgb Hct MCV MCH MCHC RDW Lymph % (Auto) Walker % (Auto) Lymph # (Auto) Walker # (Auto) Baso # (Auto) Seg Neutrophils % Seg Neuts % (Manual) Lymphocytes % (Manual) Nucleated RBC % Seg Neutrophils # Seg Neutrophils # Man Lymphocytes # (Manual) Monocytes # (Manual) Eosinophils # (Manual) PT INR APTT D-Dimer Heparin Anti-Xa Level ABG pH POC ABG pCO2 POC ABG pO2 ABG pO2 ABG HCO3 ABG O2 Saturation ABG Base Excess ABG Hemoglobin ABG Oxyhemoglobin ABG Sodium ABG Potassium ABG Chloride ABG Glucose Oxyhemoglobin Carboxyhemoglobin Sodium Potassium Chloride Carbon Dioxide BUN Creatinine Glucose POC Glucose 127 H 136 H 160 H Hemoglobin A1c Lactic Acid Calcium Phosphorus Magnesium Ferritin Total Bilirubin Direct Bilirubin AST ALT Alkaline Phosphatase Lactate Dehydrogenase C-Reactive Protein Total Protein Albumin Triglycerides Lipase Arterial Blood Glucose Arterial Blood Ionized Calcium Urine WBC (Auto) Coronavirus (PCR) SARS-CoV-2 IgG Ab Crossmatch 07/22/20 07/22/20 07/23/20 18:14 23:25 05:58 WBC 12.2 H RBC 3.44 L Hgb 10.9 L Hct 33.9 L MCV 99 H MCH MCHC RDW 16.9 H Lymph % (Auto) Walker % (Auto) 10.0 H Lymph # (Auto) Walker # (Auto) 1.2 H Baso # (Auto) Seg Neutrophils % Seg Neuts % (Manual) Lymphocytes % (Manual) Nucleated RBC % Seg Neutrophils # 8.3 H Seg Neutrophils # Man Lymphocytes # (Manual) Monocytes # (Manual) Eosinophils # (Manual) PT INR APTT D-Dimer Heparin Anti-Xa Level ABG pH POC ABG pCO2 POC ABG pO2 ABG pO2 ABG HCO3 ABG O2 Saturation ABG Base Excess ABG Hemoglobin ABG Oxyhemoglobin ABG Sodium ABG Potassium ABG Chloride ABG Glucose Oxyhemoglobin Carboxyhemoglobin Sodium Potassium Chloride Carbon Dioxide BUN Creatinine Glucose POC Glucose 189 H 164 H Hemoglobin A1c Lactic Acid Calcium Phosphorus Magnesium Ferritin Total Bilirubin Direct Bilirubin AST ALT Alkaline Phosphatase Lactate Dehydrogenase C-Reactive Protein Total Protein Albumin Triglycerides Lipase Arterial Blood Glucose Arterial Blood Ionized Calcium Urine WBC (Auto) Coronavirus (PCR) SARS-CoV-2 IgG Ab Crossmatch 07/23/20 07/23/20 07/23/20 05:58 06:02 12:14 WBC RBC Hgb Hct MCV MCH MCHC RDW Lymph % (Auto) Walker % (Auto) Lymph # (Auto) Walker # (Auto) Baso # (Auto) Seg Neutrophils % Seg Neuts % (Manual) Lymphocytes % (Manual) Nucleated RBC % Seg Neutrophils # Seg Neutrophils # Man Lymphocytes # (Manual) Monocytes # (Manual) Eosinophils # (Manual) PT INR APTT D-Dimer Heparin Anti-Xa Level ABG pH POC ABG pCO2 POC ABG pO2 ABG pO2 ABG HCO3 ABG O2 Saturation ABG Base Excess ABG Hemoglobin ABG Oxyhemoglobin ABG Sodium ABG Potassium ABG Chloride ABG Glucose Oxyhemoglobin Carboxyhemoglobin Sodium Potassium 2.9 L* Chloride 94.9 L Carbon Dioxide 33 H D BUN Creatinine 0.4 L Glucose 129 H POC Glucose 111 H 142 H Hemoglobin A1c Lactic Acid Calcium Phosphorus Magnesium Ferritin Total Bilirubin Direct Bilirubin AST ALT Alkaline Phosphatase Lactate Dehydrogenase C-Reactive Protein Total Protein Albumin 3.5 L Triglycerides Lipase Arterial Blood Glucose Arterial Blood Ionized Calcium Urine WBC (Auto) Coronavirus (PCR) SARS-CoV-2 IgG Ab Crossmatch 07/23/20 07/23/20 07/24/20 17:20 23:39 05:05 WBC 13.3 H RBC 3.40 L Hgb 10.8 L Hct 33.4 L MCV 98 H MCH MCHC RDW 16.7 H Lymph % (Auto) Walker % (Auto) 10.0 H Lymph # (Auto) Walker # (Auto) 1.3 H Baso # (Auto) Seg Neutrophils % Seg Neuts % (Manual) Lymphocytes % (Manual) Nucleated RBC % Seg Neutrophils # 9.0 H Seg Neutrophils # Man Lymphocytes # (Manual) Monocytes # (Manual) Eosinophils # (Manual) PT INR APTT D-Dimer Heparin Anti-Xa Level ABG pH POC ABG pCO2 POC ABG pO2 ABG pO2 ABG HCO3 ABG O2 Saturation ABG Base Excess ABG Hemoglobin ABG Oxyhemoglobin ABG Sodium ABG Potassium ABG Chloride ABG Glucose Oxyhemoglobin Carboxyhemoglobin Sodium Potassium Chloride Carbon Dioxide BUN Creatinine Glucose POC Glucose 150 H 120 H Hemoglobin A1c Lactic Acid Calcium Phosphorus Magnesium Ferritin Total Bilirubin Direct Bilirubin AST ALT Alkaline Phosphatase Lactate Dehydrogenase C-Reactive Protein Total Protein Albumin Triglycerides Lipase Arterial Blood Glucose Arterial Blood Ionized Calcium Urine WBC (Auto) Coronavirus (PCR) SARS-CoV-2 IgG Ab Crossmatch 07/24/20 07/24/20 07/24/20 05:05 05:39 11:30 WBC RBC Hgb Hct MCV MCH MCHC RDW Lymph % (Auto) Walker % (Auto) Lymph # (Auto) Walker # (Auto) Baso # (Auto) Seg Neutrophils % Seg Neuts % (Manual) Lymphocytes % (Manual) Nucleated RBC % Seg Neutrophils # Seg Neutrophils # Man Lymphocytes # (Manual) Monocytes # (Manual) Eosinophils # (Manual) PT INR APTT D-Dimer Heparin Anti-Xa Level ABG pH POC ABG pCO2 POC ABG pO2 ABG pO2 ABG HCO3 ABG O2 Saturation ABG Base Excess ABG Hemoglobin ABG Oxyhemoglobin ABG Sodium ABG Potassium ABG Chloride ABG Glucose Oxyhemoglobin Carboxyhemoglobin Sodium Potassium Chloride 97.4 L Carbon Dioxide BUN Creatinine 0.3 L Glucose 111 H POC Glucose 118 H 160 H Hemoglobin A1c Lactic Acid Calcium Phosphorus Magnesium Ferritin Total Bilirubin Direct Bilirubin AST ALT Alkaline Phosphatase Lactate Dehydrogenase C-Reactive Protein Total Protein Albumin Triglycerides Lipase Arterial Blood Glucose Arterial Blood Ionized Calcium Urine WBC (Auto) Coronavirus (PCR) SARS-CoV-2 IgG Ab Crossmatch 07/24/20 07/24/2021 16:45 23:43 05:00 WBC RBC Hgb Hct MCV MCH MCHC RDW Lymph % (Auto) Walker % (Auto) Lymph # (Auto) Walker # (Auto) Baso # (Auto) Seg Neutrophils % Seg Neuts % (Manual) Lymphocytes % (Manual) Nucleated RBC % Seg Neutrophils # Seg Neutrophils # Man Lymphocytes # (Manual) Monocytes # (Manual) Eosinophils # (Manual) PT INR APTT D-Dimer Heparin Anti-Xa Level ABG pH POC ABG pCO2 POC ABG pO2 ABG pO2 ABG HCO3 ABG O2 Saturation ABG Base Excess ABG Hemoglobin ABG Oxyhemoglobin ABG Sodium ABG Potassium ABG Chloride ABG Glucose Oxyhemoglobin Carboxyhemoglobin Sodium Potassium Chloride Carbon Dioxide BUN Creatinine Glucose POC Glucose 181 H 122 H 114 H Hemoglobin A1c Lactic Acid Calcium Phosphorus Magnesium Ferritin Total Bilirubin Direct Bilirubin AST ALT Alkaline Phosphatase Lactate Dehydrogenase C-Reactive Protein Total Protein Albumin Triglycerides Lipase Arterial Blood Glucose Arterial Blood Ionized Calcium Urine WBC (Auto) Coronavirus (PCR) SARS-CoV-2 IgG Ab Crossmatch 07/25/20 07/25/20 07/25/20 11:44 16:44 23:41 WBC RBC Hgb Hct MCV MCH MCHC RDW Lymph % (Auto) Walker % (Auto) Lymph # (Auto) Walker # (Auto) Baso # (Auto) Seg Neutrophils % Seg Neuts % (Manual) Lymphocytes % (Manual) Nucleated RBC % Seg Neutrophils # Seg Neutrophils # Man Lymphocytes # (Manual) Monocytes # (Manual) Eosinophils # (Manual) PT INR APTT D-Dimer Heparin Anti-Xa Level ABG pH POC ABG pCO2 POC ABG pO2 ABG pO2 ABG HCO3 ABG O2 Saturation ABG Base Excess ABG Hemoglobin ABG Oxyhemoglobin ABG Sodium ABG Potassium ABG Chloride ABG Glucose Oxyhemoglobin Carboxyhemoglobin Sodium Potassium Chloride Carbon Dioxide BUN Creatinine Glucose POC Glucose 298 H 166 H 133 H Hemoglobin A1c Lactic Acid Calcium Phosphorus Magnesium Ferritin Total Bilirubin Direct Bilirubin AST ALT Alkaline Phosphatase Lactate Dehydrogenase C-Reactive Protein Total Protein Albumin Triglycerides Lipase Arterial Blood Glucose Arterial Blood Ionized Calcium Urine WBC (Auto) Coronavirus (PCR) SARS-CoV-2 IgG Ab Crossmatch 07/26/20 07/26/20 07/26/20 05:17 11:17 18:07 WBC RBC Hgb Hct MCV MCH MCHC RDW Lymph % (Auto) Walker % (Auto) Lymph # (Auto) Walker # (Auto) Baso # (Auto) Seg Neutrophils % Seg Neuts % (Manual) Lymphocytes % (Manual) Nucleated RBC % Seg Neutrophils # Seg Neutrophils # Man Lymphocytes # (Manual) Monocytes # (Manual) Eosinophils # (Manual) PT INR APTT D-Dimer Heparin Anti-Xa Level ABG pH POC ABG pCO2 POC ABG pO2 ABG pO2 ABG HCO3 ABG O2 Saturation ABG Base Excess ABG Hemoglobin ABG Oxyhemoglobin ABG Sodium ABG Potassium ABG Chloride ABG Glucose Oxyhemoglobin Carboxyhemoglobin Sodium Potassium Chloride Carbon Dioxide BUN Creatinine Glucose POC Glucose 113 H 157 H 154 H Hemoglobin A1c Lactic Acid Calcium Phosphorus Magnesium Ferritin Total Bilirubin Direct Bilirubin AST ALT Alkaline Phosphatase Lactate Dehydrogenase C-Reactive Protein Total Protein Albumin Triglycerides Lipase Arterial Blood Glucose Arterial Blood Ionized Calcium Urine WBC (Auto) Coronavirus (PCR) SARS-CoV-2 IgG Ab Crossmatch 07/26/20 07/27/20 07/27/20 23:44 08:26 08:26 WBC RBC 3.63 L Hgb Hct MCV 98 H MCH MCHC RDW 17.5 H Lymph % (Auto) Walker % (Auto) 10.6 H Lymph # (Auto) Walker # (Auto) 1.1 H Baso # (Auto) Seg Neutrophils % Seg Neuts % (Manual) Lymphocytes % (Manual) Nucleated RBC % Seg Neutrophils # Seg Neutrophils # Man Lymphocytes # (Manual) Monocytes # (Manual) Eosinophils # (Manual) PT INR APTT D-Dimer Heparin Anti-Xa Level ABG pH POC ABG pCO2 POC ABG pO2 ABG pO2 ABG HCO3 ABG O2 Saturation ABG Base Excess ABG Hemoglobin ABG Oxyhemoglobin ABG Sodium ABG Potassium ABG Chloride ABG Glucose Oxyhemoglobin Carboxyhemoglobin Sodium Potassium Chloride 97.9 L Carbon Dioxide 37 H D BUN Creatinine 0.4 L Glucose 115 H POC Glucose 148 H Hemoglobin A1c Lactic Acid Calcium Phosphorus Magnesium Ferritin Total Bilirubin Direct Bilirubin AST ALT Alkaline Phosphatase Lactate Dehydrogenase C-Reactive Protein Total Protein Albumin Triglycerides Lipase Arterial Blood Glucose Arterial Blood Ionized Calcium Urine WBC (Auto) Coronavirus (PCR) SARS-CoV-2 IgG Ab Crossmatch 07/27/20 07/27/20 07/27/20 11:41 16:50 23:22 WBC RBC Hgb Hct MCV MCH MCHC RDW Lymph % (Auto) Walker % (Auto) Lymph # (Auto) Walker # (Auto) Baso # (Auto) Seg Neutrophils % Seg Neuts % (Manual) Lymphocytes % (Manual) Nucleated RBC % Seg Neutrophils # Seg Neutrophils # Man Lymphocytes # (Manual) Monocytes # (Manual) Eosinophils # (Manual) PT INR APTT D-Dimer Heparin Anti-Xa Level ABG pH POC ABG pCO2 POC ABG pO2 ABG pO2 ABG HCO3 ABG O2 Saturation ABG Base Excess ABG Hemoglobin ABG Oxyhemoglobin ABG Sodium ABG Potassium ABG Chloride ABG Glucose Oxyhemoglobin Carboxyhemoglobin Sodium Potassium Chloride Carbon Dioxide BUN Creatinine Glucose POC Glucose 169 H 132 H 120 H Hemoglobin A1c Lactic Acid Calcium Phosphorus Magnesium Ferritin Total Bilirubin Direct Bilirubin AST ALT Alkaline Phosphatase Lactate Dehydrogenase C-Reactive Protein Total Protein Albumin Triglycerides Lipase Arterial Blood Glucose Arterial Blood Ionized Calcium Urine WBC (Auto) Coronavirus (PCR) SARS-CoV-2 IgG Ab Crossmatch 07/28/20 07/29/20 07/29/20 17:39 14:14 16:32 WBC RBC Hgb Hct MCV MCH MCHC RDW Lymph % (Auto) Walker % (Auto) Lymph # (Auto) Walker # (Auto) Baso # (Auto) Seg Neutrophils % Seg Neuts % (Manual) Lymphocytes % (Manual) Nucleated RBC % Seg Neutrophils # Seg Neutrophils # Man Lymphocytes # (Manual) Monocytes # (Manual) Eosinophils # (Manual) PT INR APTT D-Dimer Heparin Anti-Xa Level ABG pH POC ABG pCO2 POC ABG pO2 ABG pO2 ABG HCO3 ABG O2 Saturation ABG Base Excess ABG Hemoglobin ABG Oxyhemoglobin ABG Sodium ABG Potassium ABG Chloride ABG Glucose Oxyhemoglobin Carboxyhemoglobin Sodium Potassium Chloride Carbon Dioxide BUN Creatinine Glucose POC Glucose 187 H 188 H 193 H Hemoglobin A1c Lactic Acid Calcium Phosphorus Magnesium Ferritin Total Bilirubin Direct Bilirubin AST ALT Alkaline Phosphatase Lactate Dehydrogenase C-Reactive Protein Total Protein Albumin Triglycerides Lipase Arterial Blood Glucose Arterial Blood Ionized Calcium Urine WBC (Auto) Coronavirus (PCR) SARS-CoV-2 IgG Ab Crossmatch 07/30/20 07/30/20 07/30/20 12:03 15:59 23:20 WBC RBC Hgb Hct MCV MCH MCHC RDW Lymph % (Auto) Walker % (Auto) Lymph # (Auto) Walker # (Auto) Baso # (Auto) Seg Neutrophils % Seg Neuts % (Manual) Lymphocytes % (Manual) Nucleated RBC % Seg Neutrophils # Seg Neutrophils # Man Lymphocytes # (Manual) Monocytes # (Manual) Eosinophils # (Manual) PT INR APTT D-Dimer Heparin Anti-Xa Level ABG pH POC ABG pCO2 POC ABG pO2 ABG pO2 ABG HCO3 ABG O2 Saturation ABG Base Excess ABG Hemoglobin ABG Oxyhemoglobin ABG Sodium ABG Potassium ABG Chloride ABG Glucose Oxyhemoglobin Carboxyhemoglobin Sodium Potassium Chloride Carbon Dioxide BUN Creatinine Glucose POC Glucose 133 H 191 H 144 H Hemoglobin A1c Lactic Acid Calcium Phosphorus Magnesium Ferritin Total Bilirubin Direct Bilirubin AST ALT Alkaline Phosphatase Lactate Dehydrogenase C-Reactive Protein Total Protein Albumin Triglycerides Lipase Arterial Blood Glucose Arterial Blood Ionized Calcium Urine WBC (Auto) Coronavirus (PCR) SARS-CoV-2 IgG Ab Crossmatch 07/31/20 07/31/20 07/31/20 05:28 12:01 16:43 WBC RBC Hgb Hct MCV MCH MCHC RDW Lymph % (Auto) Walker % (Auto) Lymph # (Auto) Walker # (Auto) Baso # (Auto) Seg Neutrophils % Seg Neuts % (Manual) Lymphocytes % (Manual) Nucleated RBC % Seg Neutrophils # Seg Neutrophils # Man Lymphocytes # (Manual) Monocytes # (Manual) Eosinophils # (Manual) PT INR APTT D-Dimer Heparin Anti-Xa Level ABG pH POC ABG pCO2 POC ABG pO2 ABG pO2 ABG HCO3 ABG O2 Saturation ABG Base Excess ABG Hemoglobin ABG Oxyhemoglobin ABG Sodium ABG Potassium ABG Chloride ABG Glucose Oxyhemoglobin Carboxyhemoglobin Sodium Potassium Chloride Carbon Dioxide BUN Creatinine Glucose POC Glucose 128 H 137 H 170 H Hemoglobin A1c Lactic Acid Calcium Phosphorus Magnesium Ferritin Total Bilirubin Direct Bilirubin AST ALT Alkaline Phosphatase Lactate Dehydrogenase C-Reactive Protein Total Protein Albumin Triglycerides Lipase Arterial Blood Glucose Arterial Blood Ionized Calcium Urine WBC (Auto) Coronavirus (PCR) SARS-CoV-2 IgG Ab Crossmatch 07/31/20 08/01/20 08/01/20 20:28 07:44 11:02 WBC RBC Hgb Hct MCV MCH MCHC RDW Lymph % (Auto) Walker % (Auto) Lymph # (Auto) Walker # (Auto) Baso # (Auto) Seg Neutrophils % Seg Neuts % (Manual) Lymphocytes % (Manual) Nucleated RBC % Seg Neutrophils # Seg Neutrophils # Man Lymphocytes # (Manual) Monocytes # (Manual) Eosinophils # (Manual) PT INR APTT D-Dimer Heparin Anti-Xa Level ABG pH POC ABG pCO2 POC ABG pO2 ABG pO2 ABG HCO3 ABG O2 Saturation ABG Base Excess ABG Hemoglobin ABG Oxyhemoglobin ABG Sodium ABG Potassium ABG Chloride ABG Glucose Oxyhemoglobin Carboxyhemoglobin Sodium Potassium Chloride Carbon Dioxide BUN Creatinine Glucose POC Glucose 142 H 111 H 137 H Hemoglobin A1c Lactic Acid Calcium Phosphorus Magnesium Ferritin Total Bilirubin Direct Bilirubin AST ALT Alkaline Phosphatase Lactate Dehydrogenase C-Reactive Protein Total Protein Albumin Triglycerides Lipase Arterial Blood Glucose Arterial Blood Ionized Calcium Urine WBC (Auto) Coronavirus (PCR) SARS-CoV-2 IgG Ab Crossmatch 08/01/20 08/01/20 08/02/20 15:46 20:46 05:55 WBC 12.4 H RBC Hgb Hct MCV 99 H MCH MCHC RDW 16.9 H Lymph % (Auto) Walker % (Auto) 9.7 H Lymph # (Auto) Walker # (Auto) 1.2 H Baso # (Auto) Seg Neutrophils % Seg Neuts % (Manual) Lymphocytes % (Manual) Nucleated RBC % Seg Neutrophils # 8.5 H Seg Neutrophils # Man Lymphocytes # (Manual) Monocytes # (Manual) Eosinophils # (Manual) PT INR APTT D-Dimer Heparin Anti-Xa Level ABG pH POC ABG pCO2 POC ABG pO2 ABG pO2 ABG HCO3 ABG O2 Saturation ABG Base Excess ABG Hemoglobin ABG Oxyhemoglobin ABG Sodium ABG Potassium ABG Chloride ABG Glucose Oxyhemoglobin Carboxyhemoglobin Sodium Potassium Chloride Carbon Dioxide BUN Creatinine Glucose POC Glucose 131 H 123 H Hemoglobin A1c Lactic Acid Calcium Phosphorus Magnesium Ferritin Total Bilirubin Direct Bilirubin AST ALT Alkaline Phosphatase Lactate Dehydrogenase C-Reactive Protein Total Protein Albumin Triglycerides Lipase Arterial Blood Glucose Arterial Blood Ionized Calcium Urine WBC (Auto) Coronavirus (PCR) SARS-CoV-2 IgG Ab Crossmatch 08/02/20 08/02/20 08/02/20 05:55 08:19 12:24 WBC RBC Hgb Hct MCV MCH MCHC RDW Lymph % (Auto) Walker % (Auto) Lymph # (Auto) Walker # (Auto) Baso # (Auto) Seg Neutrophils % Seg Neuts % (Manual) Lymphocytes % (Manual) Nucleated RBC % Seg Neutrophils # Seg Neutrophils # Man Lymphocytes # (Manual) Monocytes # (Manual) Eosinophils # (Manual) PT INR APTT D-Dimer Heparin Anti-Xa Level ABG pH POC ABG pCO2 POC ABG pO2 ABG pO2 ABG HCO3 ABG O2 Saturation ABG Base Excess ABG Hemoglobin ABG Oxyhemoglobin ABG Sodium ABG Potassium ABG Chloride ABG Glucose Oxyhemoglobin Carboxyhemoglobin Sodium Potassium 2.9 L* Chloride 96.5 L Carbon Dioxide 39 H BUN Creatinine 0.3 L Glucose 105 H POC Glucose 152 H 144 H Hemoglobin A1c Lactic Acid Calcium Phosphorus Magnesium Ferritin Total Bilirubin Direct Bilirubin AST ALT 118 H Alkaline Phosphatase Lactate Dehydrogenase C-Reactive Protein Total Protein Albumin 3.3 L Triglycerides Lipase Arterial Blood Glucose Arterial Blood Ionized Calcium Urine WBC (Auto) Coronavirus (PCR) SARS-CoV-2 IgG Ab Crossmatch 08/02/20 08/02/20 08/02/20 13:55 16:23 17:00 WBC RBC Hgb Hct MCV MCH MCHC RDW Lymph % (Auto) Walker % (Auto) Lymph # (Auto) Walker # (Auto) Baso # (Auto) Seg Neutrophils % Seg Neuts % (Manual) Lymphocytes % (Manual) Nucleated RBC % Seg Neutrophils # Seg Neutrophils # Man Lymphocytes # (Manual) Monocytes # (Manual) Eosinophils # (Manual) PT INR APTT D-Dimer Heparin Anti-Xa Level ABG pH POC ABG pCO2 POC ABG pO2 ABG pO2 ABG HCO3 ABG O2 Saturation ABG Base Excess ABG Hemoglobin ABG Oxyhemoglobin ABG Sodium ABG Potassium ABG Chloride ABG Glucose Oxyhemoglobin Carboxyhemoglobin Sodium Potassium 3.0 L Chloride Carbon Dioxide BUN Creatinine Glucose POC Glucose 142 H 193 H Hemoglobin A1c Lactic Acid Calcium Phosphorus Magnesium Ferritin Total Bilirubin Direct Bilirubin AST ALT Alkaline Phosphatase Lactate Dehydrogenase C-Reactive Protein Total Protein Albumin Triglycerides Lipase Arterial Blood Glucose Arterial Blood Ionized Calcium Urine WBC (Auto) Coronavirus (PCR) SARS-CoV-2 IgG Ab Crossmatch 08/02/20 08/03/20 08/03/20 21:21 05:18 08:05 WBC RBC Hgb Hct MCV MCH MCHC RDW Lymph % (Auto) Walker % (Auto) Lymph # (Auto) Walker # (Auto) Baso # (Auto) Seg Neutrophils % Seg Neuts % (Manual) Lymphocytes % (Manual) Nucleated RBC % Seg Neutrophils # Seg Neutrophils # Man Lymphocytes # (Manual) Monocytes # (Manual) Eosinophils # (Manual) PT INR APTT D-Dimer Heparin Anti-Xa Level ABG pH POC ABG pCO2 POC ABG pO2 ABG pO2 ABG HCO3 ABG O2 Saturation ABG Base Excess ABG Hemoglobin ABG Oxyhemoglobin ABG Sodium ABG Potassium ABG Chloride ABG Glucose Oxyhemoglobin Carboxyhemoglobin Sodium Potassium Chloride Carbon Dioxide 32 H D BUN Creatinine 0.4 L Glucose POC Glucose 161 H 107 H Hemoglobin A1c Lactic Acid Calcium Phosphorus Magnesium Ferritin Total Bilirubin Direct Bilirubin AST ALT Alkaline Phosphatase Lactate Dehydrogenase C-Reactive Protein Total Protein Albumin Triglycerides Lipase Arterial Blood Glucose Arterial Blood Ionized Calcium Urine WBC (Auto) Coronavirus (PCR) SARS-CoV-2 IgG Ab Crossmatch 08/03/20 08/03/20 08/04/20 12:03 20:20 07:46 WBC RBC Hgb Hct MCV MCH MCHC RDW Lymph % (Auto) Walker % (Auto) Lymph # (Auto) Walker # (Auto) Baso # (Auto) Seg Neutrophils % Seg Neuts % (Manual) Lymphocytes % (Manual) Nucleated RBC % Seg Neutrophils # Seg Neutrophils # Man Lymphocytes # (Manual) Monocytes # (Manual) Eosinophils # (Manual) PT INR APTT D-Dimer Heparin Anti-Xa Level ABG pH POC ABG pCO2 POC ABG pO2 ABG pO2 ABG HCO3 ABG O2 Saturation ABG Base Excess ABG Hemoglobin ABG Oxyhemoglobin ABG Sodium ABG Potassium ABG Chloride ABG Glucose Oxyhemoglobin Carboxyhemoglobin Sodium Potassium Chloride Carbon Dioxide BUN Creatinine Glucose POC Glucose 135 H 167 H 109 H Hemoglobin A1c Lactic Acid Calcium Phosphorus Magnesium Ferritin Total Bilirubin Direct Bilirubin AST ALT Alkaline Phosphatase Lactate Dehydrogenase C-Reactive Protein Total Protein Albumin Triglycerides Lipase Arterial Blood Glucose Arterial Blood Ionized Calcium Urine WBC (Auto) Coronavirus (PCR) SARS-CoV-2 IgG Ab Crossmatch 08/04/20 08/04/20 08/04/20 11:54 16:48 20:39 WBC RBC Hgb Hct MCV MCH MCHC RDW Lymph % (Auto) Walker % (Auto) Lymph # (Auto) Walker # (Auto) Baso # (Auto) Seg Neutrophils % Seg Neuts % (Manual) Lymphocytes % (Manual) Nucleated RBC % Seg Neutrophils # Seg Neutrophils # Man Lymphocytes # (Manual) Monocytes # (Manual) Eosinophils # (Manual) PT INR APTT D-Dimer Heparin Anti-Xa Level ABG pH POC ABG pCO2 POC ABG pO2 ABG pO2 ABG HCO3 ABG O2 Saturation ABG Base Excess ABG Hemoglobin ABG Oxyhemoglobin ABG Sodium ABG Potassium ABG Chloride ABG Glucose Oxyhemoglobin Carboxyhemoglobin Sodium Potassium Chloride Carbon Dioxide BUN Creatinine Glucose POC Glucose 133 H 150 H 139 H Hemoglobin A1c Lactic Acid Calcium Phosphorus Magnesium Ferritin Total Bilirubin Direct Bilirubin AST ALT Alkaline Phosphatase Lactate Dehydrogenase C-Reactive Protein Total Protein Albumin Triglycerides Lipase Arterial Blood Glucose Arterial Blood Ionized Calcium Urine WBC (Auto) Coronavirus (PCR) SARS-CoV-2 IgG Ab Crossmatch 08/05/20 08/05/20 08/05/20 07:45 11:36 16:09 WBC RBC Hgb Hct MCV MCH MCHC RDW Lymph % (Auto) Walker % (Auto) Lymph # (Auto) Walker # (Auto) Baso # (Auto) Seg Neutrophils % Seg Neuts % (Manual) Lymphocytes % (Manual) Nucleated RBC % Seg Neutrophils # Seg Neutrophils # Man Lymphocytes # (Manual) Monocytes # (Manual) Eosinophils # (Manual) PT INR APTT D-Dimer Heparin Anti-Xa Level ABG pH POC ABG pCO2 POC ABG pO2 ABG pO2 ABG HCO3 ABG O2 Saturation ABG Base Excess ABG Hemoglobin ABG Oxyhemoglobin ABG Sodium ABG Potassium ABG Chloride ABG Glucose Oxyhemoglobin Carboxyhemoglobin Sodium Potassium Chloride Carbon Dioxide BUN Creatinine Glucose POC Glucose 115 H 112 H 118 H Hemoglobin A1c Lactic Acid Calcium Phosphorus Magnesium Ferritin Total Bilirubin Direct Bilirubin AST ALT Alkaline Phosphatase Lactate Dehydrogenase C-Reactive Protein Total Protein Albumin Triglycerides Lipase Arterial Blood Glucose Arterial Blood Ionized Calcium Urine WBC (Auto) Coronavirus (PCR) SARS-CoV-2 IgG Ab Crossmatch 08/05/20 08/06/20 08/06/20 22:06 11:09 16:51 WBC RBC Hgb Hct MCV MCH MCHC RDW Lymph % (Auto) Walker % (Auto) Lymph # (Auto) Walker # (Auto) Baso # (Auto) Seg Neutrophils % Seg Neuts % (Manual) Lymphocytes % (Manual) Nucleated RBC % Seg Neutrophils # Seg Neutrophils # Man Lymphocytes # (Manual) Monocytes # (Manual) Eosinophils # (Manual) PT INR APTT D-Dimer Heparin Anti-Xa Level ABG pH POC ABG pCO2 POC ABG pO2 ABG pO2 ABG HCO3 ABG O2 Saturation ABG Base Excess ABG Hemoglobin ABG Oxyhemoglobin ABG Sodium ABG Potassium ABG Chloride ABG Glucose Oxyhemoglobin Carboxyhemoglobin Sodium Potassium Chloride Carbon Dioxide BUN Creatinine Glucose POC Glucose 120 H 125 H 135 H Hemoglobin A1c Lactic Acid Calcium Phosphorus Magnesium Ferritin Total Bilirubin Direct Bilirubin AST ALT Alkaline Phosphatase Lactate Dehydrogenase C-Reactive Protein Total Protein Albumin Triglycerides Lipase Arterial Blood Glucose Arterial Blood Ionized Calcium Urine WBC (Auto) Coronavirus (PCR) SARS-CoV-2 IgG Ab Crossmatch 08/06/20 08/07/20 08/07/20 20:21 08:15 12:46 WBC RBC Hgb Hct MCV MCH MCHC RDW Lymph % (Auto) Walker % (Auto) Lymph # (Auto) Walker # (Auto) Baso # (Auto) Seg Neutrophils % Seg Neuts % (Manual) Lymphocytes % (Manual) Nucleated RBC % Seg Neutrophils # Seg Neutrophils # Man Lymphocytes # (Manual) Monocytes # (Manual) Eosinophils # (Manual) PT INR APTT D-Dimer Heparin Anti-Xa Level ABG pH POC ABG pCO2 POC ABG pO2 ABG pO2 ABG HCO3 ABG O2 Saturation ABG Base Excess ABG Hemoglobin ABG Oxyhemoglobin ABG Sodium ABG Potassium ABG Chloride ABG Glucose Oxyhemoglobin Carboxyhemoglobin Sodium Potassium Chloride Carbon Dioxide BUN Creatinine Glucose POC Glucose 127 H 120 H 113 H Hemoglobin A1c Lactic Acid Calcium Phosphorus Magnesium Ferritin Total Bilirubin Direct Bilirubin AST ALT Alkaline Phosphatase Lactate Dehydrogenase C-Reactive Protein Total Protein Albumin Triglycerides Lipase Arterial Blood Glucose Arterial Blood Ionized Calcium Urine WBC (Auto) Coronavirus (PCR) SARS-CoV-2 IgG Ab Crossmatch 08/07/20 08/07/20 08/08/20 16:38 21:30 07:40 WBC RBC Hgb Hct MCV MCH MCHC RDW Lymph % (Auto) Walker % (Auto) Lymph # (Auto) Walker # (Auto) Baso # (Auto) Seg Neutrophils % Seg Neuts % (Manual) Lymphocytes % (Manual) Nucleated RBC % Seg Neutrophils # Seg Neutrophils # Man Lymphocytes # (Manual) Monocytes # (Manual) Eosinophils # (Manual) PT INR APTT D-Dimer Heparin Anti-Xa Level ABG pH POC ABG pCO2 POC ABG pO2 ABG pO2 ABG HCO3 ABG O2 Saturation ABG Base Excess ABG Hemoglobin ABG Oxyhemoglobin ABG Sodium ABG Potassium ABG Chloride ABG Glucose Oxyhemoglobin Carboxyhemoglobin Sodium Potassium Chloride Carbon Dioxide BUN Creatinine Glucose POC Glucose 119 H 129 H 115 H Hemoglobin A1c Lactic Acid Calcium Phosphorus Magnesium Ferritin Total Bilirubin Direct Bilirubin AST ALT Alkaline Phosphatase Lactate Dehydrogenase C-Reactive Protein Total Protein Albumin Triglycerides Lipase Arterial Blood Glucose Arterial Blood Ionized Calcium Urine WBC (Auto) Coronavirus (PCR) SARS-CoV-2 IgG Ab Crossmatch 08/08/20 08/08/20 08/08/20 11:31 16:03 21:17 WBC RBC Hgb Hct MCV MCH MCHC RDW Lymph % (Auto) Walker % (Auto) Lymph # (Auto) Walker # (Auto) Baso # (Auto) Seg Neutrophils % Seg Neuts % (Manual) Lymphocytes % (Manual) Nucleated RBC % Seg Neutrophils # Seg Neutrophils # Man Lymphocytes # (Manual) Monocytes # (Manual) Eosinophils # (Manual) PT INR APTT D-Dimer Heparin Anti-Xa Level ABG pH POC ABG pCO2 POC ABG pO2 ABG pO2 ABG HCO3 ABG O2 Saturation ABG Base Excess ABG Hemoglobin ABG Oxyhemoglobin ABG Sodium ABG Potassium ABG Chloride ABG Glucose Oxyhemoglobin Carboxyhemoglobin Sodium Potassium Chloride Carbon Dioxide BUN Creatinine Glucose POC Glucose 117 H 113 H 132 H Hemoglobin A1c Lactic Acid Calcium Phosphorus Magnesium Ferritin Total Bilirubin Direct Bilirubin AST ALT Alkaline Phosphatase Lactate Dehydrogenase C-Reactive Protein Total Protein Albumin Triglycerides Lipase Arterial Blood Glucose Arterial Blood Ionized Calcium Urine WBC (Auto) Coronavirus (PCR) SARS-CoV-2 IgG Ab Crossmatch 08/09/20 08/09/20 08/09/20 11:53 16:53 21:39 WBC RBC Hgb Hct MCV MCH MCHC RDW Lymph % (Auto) Walker % (Auto) Lymph # (Auto) Walker # (Auto) Baso # (Auto) Seg Neutrophils % Seg Neuts % (Manual) Lymphocytes % (Manual) Nucleated RBC % Seg Neutrophils # Seg Neutrophils # Man Lymphocytes # (Manual) Monocytes # (Manual) Eosinophils # (Manual) PT INR APTT D-Dimer Heparin Anti-Xa Level ABG pH POC ABG pCO2 POC ABG pO2 ABG pO2 ABG HCO3 ABG O2 Saturation ABG Base Excess ABG Hemoglobin ABG Oxyhemoglobin ABG Sodium ABG Potassium ABG Chloride ABG Glucose Oxyhemoglobin Carboxyhemoglobin Sodium Potassium Chloride Carbon Dioxide BUN Creatinine Glucose POC Glucose 131 H 153 H 114 H Hemoglobin A1c Lactic Acid Calcium Phosphorus Magnesium Ferritin Total Bilirubin Direct Bilirubin AST ALT Alkaline Phosphatase Lactate Dehydrogenase C-Reactive Protein Total Protein Albumin Triglycerides Lipase Arterial Blood Glucose Arterial Blood Ionized Calcium Urine WBC (Auto) Coronavirus (PCR) SARS-CoV-2 IgG Ab Crossmatch 08/10/20 08/10/20 08/10/20 07:58 11:57 16:53 WBC RBC Hgb Hct MCV MCH MCHC RDW Lymph % (Auto) Walker % (Auto) Lymph # (Auto) Walker # (Auto) Baso # (Auto) Seg Neutrophils % Seg Neuts % (Manual) Lymphocytes % (Manual) Nucleated RBC % Seg Neutrophils # Seg Neutrophils # Man Lymphocytes # (Manual) Monocytes # (Manual) Eosinophils # (Manual) PT INR APTT D-Dimer Heparin Anti-Xa Level ABG pH POC ABG pCO2 POC ABG pO2 ABG pO2 ABG HCO3 ABG O2 Saturation ABG Base Excess ABG Hemoglobin ABG Oxyhemoglobin ABG Sodium ABG Potassium ABG Chloride ABG Glucose Oxyhemoglobin Carboxyhemoglobin Sodium Potassium Chloride Carbon Dioxide BUN Creatinine Glucose POC Glucose 106 H 139 H 140 H Hemoglobin A1c Lactic Acid Calcium Phosphorus Magnesium Ferritin Total Bilirubin Direct Bilirubin AST ALT Alkaline Phosphatase Lactate Dehydrogenase C-Reactive Protein Total Protein Albumin Triglycerides Lipase Arterial Blood Glucose Arterial Blood Ionized Calcium Urine WBC (Auto) Coronavirus (PCR) SARS-CoV-2 IgG Ab Crossmatch 08/10/20 08/11/20 08/11/20 20:45 12:07 15:58 WBC RBC Hgb Hct MCV MCH MCHC RDW Lymph % (Auto) Walker % (Auto) Lymph # (Auto) Walker # (Auto) Baso # (Auto) Seg Neutrophils % Seg Neuts % (Manual) Lymphocytes % (Manual) Nucleated RBC % Seg Neutrophils # Seg Neutrophils # Man Lymphocytes # (Manual) Monocytes # (Manual) Eosinophils # (Manual) PT INR APTT D-Dimer Heparin Anti-Xa Level ABG pH POC ABG pCO2 POC ABG pO2 ABG pO2 ABG HCO3 ABG O2 Saturation ABG Base Excess ABG Hemoglobin ABG Oxyhemoglobin ABG Sodium ABG Potassium ABG Chloride ABG Glucose Oxyhemoglobin Carboxyhemoglobin Sodium Potassium Chloride Carbon Dioxide BUN Creatinine Glucose POC Glucose 161 H 114 H 133 H Hemoglobin A1c Lactic Acid Calcium Phosphorus Magnesium Ferritin Total Bilirubin Direct Bilirubin AST ALT Alkaline Phosphatase Lactate Dehydrogenase C-Reactive Protein Total Protein Albumin Triglycerides Lipase Arterial Blood Glucose Arterial Blood Ionized Calcium Urine WBC (Auto) Coronavirus (PCR) SARS-CoV-2 IgG Ab Crossmatch 08/11/20 08/11/20 08/12/20 18:43 20:45 07:46 WBC RBC Hgb Hct MCV MCH MCHC RDW Lymph % (Auto) Walker % (Auto) Lymph # (Auto) Walker # (Auto) Baso # (Auto) Seg Neutrophils % Seg Neuts % (Manual) Lymphocytes % (Manual) Nucleated RBC % Seg Neutrophils # Seg Neutrophils # Man Lymphocytes # (Manual) Monocytes # (Manual) Eosinophils # (Manual) PT INR APTT D-Dimer Heparin Anti-Xa Level ABG pH POC ABG pCO2 51.0 H POC ABG pO2 ABG pO2 ABG HCO3 ABG O2 Saturation ABG Base Excess ABG Hemoglobin ABG Oxyhemoglobin ABG Sodium ABG Potassium ABG Chloride ABG Glucose 149 H Oxyhemoglobin Carboxyhemoglobin Sodium Potassium Chloride Carbon Dioxide BUN Creatinine Glucose POC Glucose 111 H 112 H Hemoglobin A1c Lactic Acid Calcium Phosphorus Magnesium Ferritin Total Bilirubin Direct Bilirubin AST ALT Alkaline Phosphatase Lactate Dehydrogenase C-Reactive Protein Total Protein Albumin Triglycerides Lipase Arterial Blood Glucose 149 H Arterial Blood Ionized Calcium Urine WBC (Auto) Coronavirus (PCR) SARS-CoV-2 IgG Ab Crossmatch 08/12/20 08/12/20 08/13/20 18:34 21:09 16:10 WBC RBC Hgb Hct MCV MCH MCHC RDW Lymph % (Auto) Walker % (Auto) Lymph # (Auto) Walker # (Auto) Baso # (Auto) Seg Neutrophils % Seg Neuts % (Manual) Lymphocytes % (Manual) Nucleated RBC % Seg Neutrophils # Seg Neutrophils # Man Lymphocytes # (Manual) Monocytes # (Manual) Eosinophils # (Manual) PT INR APTT D-Dimer Heparin Anti-Xa Level ABG pH POC ABG pCO2 POC ABG pO2 ABG pO2 ABG HCO3 ABG O2 Saturation ABG Base Excess ABG Hemoglobin ABG Oxyhemoglobin ABG Sodium ABG Potassium ABG Chloride ABG Glucose Oxyhemoglobin Carboxyhemoglobin Sodium Potassium Chloride 97.2 L Carbon Dioxide BUN Creatinine 0.5 L Glucose 132 H POC Glucose 120 H 140 H Hemoglobin A1c Lactic Acid Calcium Phosphorus Magnesium Ferritin Total Bilirubin Direct Bilirubin AST ALT Alkaline Phosphatase Lactate Dehydrogenase C-Reactive Protein Total Protein Albumin Triglycerides Lipase Arterial Blood Glucose Arterial Blood Ionized Calcium Urine WBC (Auto) Coronavirus (PCR) SARS-CoV-2 IgG Ab Crossmatch 08/13/20 08/14/20 08/14/20 21:16 11:20 16:14 WBC RBC Hgb Hct MCV MCH MCHC RDW Lymph % (Auto) Walker % (Auto) Lymph # (Auto) Walker # (Auto) Baso # (Auto) Seg Neutrophils % Seg Neuts % (Manual) Lymphocytes % (Manual) Nucleated RBC % Seg Neutrophils # Seg Neutrophils # Man Lymphocytes # (Manual) Monocytes # (Manual) Eosinophils # (Manual) PT INR APTT D-Dimer Heparin Anti-Xa Level ABG pH POC ABG pCO2 POC ABG pO2 ABG pO2 ABG HCO3 ABG O2 Saturation ABG Base Excess ABG Hemoglobin ABG Oxyhemoglobin ABG Sodium ABG Potassium ABG Chloride ABG Glucose Oxyhemoglobin Carboxyhemoglobin Sodium Potassium Chloride Carbon Dioxide BUN Creatinine Glucose POC Glucose 163 H 109 H 118 H Hemoglobin A1c Lactic Acid Calcium Phosphorus Magnesium Ferritin Total Bilirubin Direct Bilirubin AST ALT Alkaline Phosphatase Lactate Dehydrogenase C-Reactive Protein Total Protein Albumin Triglycerides Lipase Arterial Blood Glucose Arterial Blood Ionized Calcium Urine WBC (Auto) Coronavirus (PCR) SARS-CoV-2 IgG Ab Crossmatch 08/14/20 08/15/20 08/15/20 20:11 11:58 16:14 WBC RBC Hgb Hct MCV MCH MCHC RDW Lymph % (Auto) Walker % (Auto) Lymph # (Auto) Walker # (Auto) Baso # (Auto) Seg Neutrophils % Seg Neuts % (Manual) Lymphocytes % (Manual) Nucleated RBC % Seg Neutrophils # Seg Neutrophils # Man Lymphocytes # (Manual) Monocytes # (Manual) Eosinophils # (Manual) PT INR APTT D-Dimer Heparin Anti-Xa Level ABG pH POC ABG pCO2 POC ABG pO2 ABG pO2 ABG HCO3 ABG O2 Saturation ABG Base Excess ABG Hemoglobin ABG Oxyhemoglobin ABG Sodium ABG Potassium ABG Chloride ABG Glucose Oxyhemoglobin Carboxyhemoglobin Sodium Potassium Chloride Carbon Dioxide BUN Creatinine Glucose POC Glucose 139 H 120 H 118 H Hemoglobin A1c Lactic Acid Calcium Phosphorus Magnesium Ferritin Total Bilirubin Direct Bilirubin AST ALT Alkaline Phosphatase Lactate Dehydrogenase C-Reactive Protein Total Protein Albumin Triglycerides Lipase Arterial Blood Glucose Arterial Blood Ionized Calcium Urine WBC (Auto) Coronavirus (PCR) SARS-CoV-2 IgG Ab Crossmatch 08/16/20 08/16/20 08/16/20 12:02 15:14 20:25 WBC RBC Hgb Hct MCV MCH MCHC RDW Lymph % (Auto) Walker % (Auto) Lymph # (Auto) Walker # (Auto) Baso # (Auto) Seg Neutrophils % Seg Neuts % (Manual) Lymphocytes % (Manual) Nucleated RBC % Seg Neutrophils # Seg Neutrophils # Man Lymphocytes # (Manual) Monocytes # (Manual) Eosinophils # (Manual) PT INR APTT D-Dimer Heparin Anti-Xa Level ABG pH POC ABG pCO2 POC ABG pO2 ABG pO2 ABG HCO3 ABG O2 Saturation ABG Base Excess ABG Hemoglobin ABG Oxyhemoglobin ABG Sodium ABG Potassium ABG Chloride ABG Glucose Oxyhemoglobin Carboxyhemoglobin Sodium Potassium Chloride Carbon Dioxide BUN Creatinine Glucose POC Glucose 128 H 143 H 132 H Hemoglobin A1c Lactic Acid Calcium Phosphorus Magnesium Ferritin Total Bilirubin Direct Bilirubin AST ALT Alkaline Phosphatase Lactate Dehydrogenase C-Reactive Protein Total Protein Albumin Triglycerides Lipase Arterial Blood Glucose Arterial Blood Ionized Calcium Urine WBC (Auto) Coronavirus (PCR) SARS-CoV-2 IgG Ab Crossmatch 08/17/20 08/17/20 08/17/20 07:34 10:59 16:10 WBC RBC Hgb Hct MCV MCH MCHC RDW Lymph % (Auto) Walker % (Auto) Lymph # (Auto) Walker # (Auto) Baso # (Auto) Seg Neutrophils % Seg Neuts % (Manual) Lymphocytes % (Manual) Nucleated RBC % Seg Neutrophils # Seg Neutrophils # Man Lymphocytes # (Manual) Monocytes # (Manual) Eosinophils # (Manual) PT INR APTT D-Dimer Heparin Anti-Xa Level ABG pH POC ABG pCO2 POC ABG pO2 ABG pO2 ABG HCO3 ABG O2 Saturation ABG Base Excess ABG Hemoglobin ABG Oxyhemoglobin ABG Sodium ABG Potassium ABG Chloride ABG Glucose Oxyhemoglobin Carboxyhemoglobin Sodium Potassium Chloride Carbon Dioxide BUN Creatinine Glucose POC Glucose 113 H 125 H 120 H Hemoglobin A1c Lactic Acid Calcium Phosphorus Magnesium Ferritin Total Bilirubin Direct Bilirubin AST ALT Alkaline Phosphatase Lactate Dehydrogenase C-Reactive Protein Total Protein Albumin Triglycerides Lipase Arterial Blood Glucose Arterial Blood Ionized Calcium Urine WBC (Auto) Coronavirus (PCR) SARS-CoV-2 IgG Ab Crossmatch 08/17/20 08/18/20 08/18/20 20:13 11:59 16:35 WBC RBC Hgb Hct MCV MCH MCHC RDW Lymph % (Auto) Walker % (Auto) Lymph # (Auto) Walker # (Auto) Baso # (Auto) Seg Neutrophils % Seg Neuts % (Manual) Lymphocytes % (Manual) Nucleated RBC % Seg Neutrophils # Seg Neutrophils # Man Lymphocytes # (Manual) Monocytes # (Manual) Eosinophils # (Manual) PT INR APTT D-Dimer Heparin Anti-Xa Level ABG pH POC ABG pCO2 POC ABG pO2 ABG pO2 ABG HCO3 ABG O2 Saturation ABG Base Excess ABG Hemoglobin ABG Oxyhemoglobin ABG Sodium ABG Potassium ABG Chloride ABG Glucose Oxyhemoglobin Carboxyhemoglobin Sodium Potassium Chloride Carbon Dioxide BUN Creatinine Glucose POC Glucose 148 H 140 H 126 H Hemoglobin A1c Lactic Acid Calcium Phosphorus Magnesium Ferritin Total Bilirubin Direct Bilirubin AST ALT Alkaline Phosphatase Lactate Dehydrogenase C-Reactive Protein Total Protein Albumin Triglycerides Lipase Arterial Blood Glucose Arterial Blood Ionized Calcium Urine WBC (Auto) Coronavirus (PCR) SARS-CoV-2 IgG Ab Crossmatch 08/18/20 08/19/20 08/19/20 21:15 11:43 15:39 WBC RBC Hgb Hct MCV MCH MCHC RDW Lymph % (Auto) Walker % (Auto) Lymph # (Auto) Walker # (Auto) Baso # (Auto) Seg Neutrophils % Seg Neuts % (Manual) Lymphocytes % (Manual) Nucleated RBC % Seg Neutrophils # Seg Neutrophils # Man Lymphocytes # (Manual) Monocytes # (Manual) Eosinophils # (Manual) PT INR APTT D-Dimer Heparin Anti-Xa Level ABG pH POC ABG pCO2 POC ABG pO2 ABG pO2 ABG HCO3 ABG O2 Saturation ABG Base Excess ABG Hemoglobin ABG Oxyhemoglobin ABG Sodium ABG Potassium ABG Chloride ABG Glucose Oxyhemoglobin Carboxyhemoglobin Sodium Potassium Chloride Carbon Dioxide BUN Creatinine Glucose POC Glucose 119 H 109 H 117 H Hemoglobin A1c Lactic Acid Calcium Phosphorus Magnesium Ferritin Total Bilirubin Direct Bilirubin AST ALT Alkaline Phosphatase Lactate Dehydrogenase C-Reactive Protein Total Protein Albumin Triglycerides Lipase Arterial Blood Glucose Arterial Blood Ionized Calcium Urine WBC (Auto) Coronavirus (PCR) SARS-CoV-2 IgG Ab Crossmatch 08/20/20 08/20/20 08/20/20 07:46 15:58 20:37 WBC RBC Hgb Hct MCV MCH MCHC RDW Lymph % (Auto) Walker % (Auto) Lymph # (Auto) Walker # (Auto) Baso # (Auto) Seg Neutrophils % Seg Neuts % (Manual) Lymphocytes % (Manual) Nucleated RBC % Seg Neutrophils # Seg Neutrophils # Man Lymphocytes # (Manual) Monocytes # (Manual) Eosinophils # (Manual) PT INR APTT D-Dimer Heparin Anti-Xa Level ABG pH POC ABG pCO2 POC ABG pO2 ABG pO2 ABG HCO3 ABG O2 Saturation ABG Base Excess ABG Hemoglobin ABG Oxyhemoglobin ABG Sodium ABG Potassium ABG Chloride ABG Glucose Oxyhemoglobin Carboxyhemoglobin Sodium Potassium Chloride Carbon Dioxide BUN Creatinine Glucose POC Glucose 106 H 133 H 144 H Hemoglobin A1c Lactic Acid Calcium Phosphorus Magnesium Ferritin Total Bilirubin Direct Bilirubin AST ALT Alkaline Phosphatase Lactate Dehydrogenase C-Reactive Protein Total Protein Albumin Triglycerides Lipase Arterial Blood Glucose Arterial Blood Ionized Calcium Urine WBC (Auto) Coronavirus (PCR) SARS-CoV-2 IgG Ab Crossmatch 08/21/20 08/21/20 08/21/20 07:44 11:42 16:43 WBC RBC Hgb Hct MCV MCH MCHC RDW Lymph % (Auto) Walker % (Auto) Lymph # (Auto) Walker # (Auto) Baso # (Auto) Seg Neutrophils % Seg Neuts % (Manual) Lymphocytes % (Manual) Nucleated RBC % Seg Neutrophils # Seg Neutrophils # Man Lymphocytes # (Manual) Monocytes # (Manual) Eosinophils # (Manual) PT INR APTT D-Dimer Heparin Anti-Xa Level ABG pH POC ABG pCO2 POC ABG pO2 ABG pO2 ABG HCO3 ABG O2 Saturation ABG Base Excess ABG Hemoglobin ABG Oxyhemoglobin ABG Sodium ABG Potassium ABG Chloride ABG Glucose Oxyhemoglobin Carboxyhemoglobin Sodium Potassium Chloride Carbon Dioxide BUN Creatinine Glucose POC Glucose 123 H 135 H 128 H Hemoglobin A1c Lactic Acid Calcium Phosphorus Magnesium Ferritin Total Bilirubin Direct Bilirubin AST ALT Alkaline Phosphatase Lactate Dehydrogenase C-Reactive Protein Total Protein Albumin Triglycerides Lipase Arterial Blood Glucose Arterial Blood Ionized Calcium Urine WBC (Auto) Coronavirus (PCR) SARS-CoV-2 IgG Ab Crossmatch 08/22/20 08/22/20 08/22/20 05:11 05:11 11:12 WBC RBC Hgb Hct MCV 95 H MCH MCHC RDW 16.4 H Lymph % (Auto) Walker % (Auto) 9.7 H Lymph # (Auto) Walker # (Auto) 1.0 H Baso # (Auto) Seg Neutrophils % Seg Neuts % (Manual) Lymphocytes % (Manual) Nucleated RBC % Seg Neutrophils # Seg Neutrophils # Man Lymphocytes # (Manual) Monocytes # (Manual) Eosinophils # (Manual) PT INR APTT D-Dimer Heparin Anti-Xa Level ABG pH POC ABG pCO2 POC ABG pO2 ABG pO2 ABG HCO3 ABG O2 Saturation ABG Base Excess ABG Hemoglobin ABG Oxyhemoglobin ABG Sodium ABG Potassium ABG Chloride ABG Glucose Oxyhemoglobin Carboxyhemoglobin Sodium Potassium 3.3 L Chloride Carbon Dioxide 31 H BUN Creatinine 0.6 L Glucose POC Glucose 116 H Hemoglobin A1c Lactic Acid Calcium Phosphorus 5.10 H Magnesium Ferritin Total Bilirubin Direct Bilirubin AST ALT Alkaline Phosphatase Lactate Dehydrogenase C-Reactive Protein Total Protein Albumin Triglycerides Lipase Arterial Blood Glucose Arterial Blood Ionized Calcium Urine WBC (Auto) Coronavirus (PCR) SARS-CoV-2 IgG Ab Crossmatch 08/22/20 08/22/20 08/23/20 15:43 20:31 11:24 WBC RBC Hgb Hct MCV MCH MCHC RDW Lymph % (Auto) Walker % (Auto) Lymph # (Auto) Walker # (Auto) Baso # (Auto) Seg Neutrophils % Seg Neuts % (Manual) Lymphocytes % (Manual) Nucleated RBC % Seg Neutrophils # Seg Neutrophils # Man Lymphocytes # (Manual) Monocytes # (Manual) Eosinophils # (Manual) PT INR APTT D-Dimer Heparin Anti-Xa Level ABG pH POC ABG pCO2 POC ABG pO2 ABG pO2 ABG HCO3 ABG O2 Saturation ABG Base Excess ABG Hemoglobin ABG Oxyhemoglobin ABG Sodium ABG Potassium ABG Chloride ABG Glucose Oxyhemoglobin Carboxyhemoglobin Sodium Potassium Chloride Carbon Dioxide BUN Creatinine Glucose POC Glucose 118 H 110 H 116 H Hemoglobin A1c Lactic Acid Calcium Phosphorus Magnesium Ferritin Total Bilirubin Direct Bilirubin AST ALT Alkaline Phosphatase Lactate Dehydrogenase C-Reactive Protein Total Protein Albumin Triglycerides Lipase Arterial Blood Glucose Arterial Blood Ionized Calcium Urine WBC (Auto) Coronavirus (PCR) SARS-CoV-2 IgG Ab Crossmatch 08/23/20 08/23/20 08/24/20 15:48 21:04 11:05 WBC RBC Hgb Hct MCV MCH MCHC RDW Lymph % (Auto) Walker % (Auto) Lymph # (Auto) Walker # (Auto) Baso # (Auto) Seg Neutrophils % Seg Neuts % (Manual) Lymphocytes % (Manual) Nucleated RBC % Seg Neutrophils # Seg Neutrophils # Man Lymphocytes # (Manual) Monocytes # (Manual) Eosinophils # (Manual) PT INR APTT D-Dimer Heparin Anti-Xa Level ABG pH POC ABG pCO2 POC ABG pO2 ABG pO2 ABG HCO3 ABG O2 Saturation ABG Base Excess ABG Hemoglobin ABG Oxyhemoglobin ABG Sodium ABG Potassium ABG Chloride ABG Glucose Oxyhemoglobin Carboxyhemoglobin Sodium Potassium Chloride Carbon Dioxide BUN Creatinine Glucose POC Glucose 129 H 132 H 154 H Hemoglobin A1c Lactic Acid Calcium Phosphorus Magnesium Ferritin Total Bilirubin Direct Bilirubin AST ALT Alkaline Phosphatase Lactate Dehydrogenase C-Reactive Protein Total Protein Albumin Triglycerides Lipase Arterial Blood Glucose Arterial Blood Ionized Calcium Urine WBC (Auto) Coronavirus (PCR) SARS-CoV-2 IgG Ab Crossmatch 08/24/20 08/25/20 08/26/20 21:16 11:10 08:12 WBC RBC Hgb Hct MCV MCH MCHC RDW Lymph % (Auto) Walker % (Auto) Lymph # (Auto) Walker # (Auto) Baso # (Auto) Seg Neutrophils % Seg Neuts % (Manual) Lymphocytes % (Manual) Nucleated RBC % Seg Neutrophils # Seg Neutrophils # Man Lymphocytes # (Manual) Monocytes # (Manual) Eosinophils # (Manual) PT INR APTT D-Dimer Heparin Anti-Xa Level ABG pH POC ABG pCO2 POC ABG pO2 ABG pO2 ABG HCO3 ABG O2 Saturation ABG Base Excess ABG Hemoglobin ABG Oxyhemoglobin ABG Sodium ABG Potassium ABG Chloride ABG Glucose Oxyhemoglobin Carboxyhemoglobin Sodium Potassium Chloride Carbon Dioxide BUN Creatinine Glucose POC Glucose 110 H 125 H 112 H Hemoglobin A1c Lactic Acid Calcium Phosphorus Magnesium Ferritin Total Bilirubin Direct Bilirubin AST ALT Alkaline Phosphatase Lactate Dehydrogenase C-Reactive Protein Total Protein Albumin Triglycerides Lipase Arterial Blood Glucose Arterial Blood Ionized Calcium Urine WBC (Auto) Coronavirus (PCR) SARS-CoV-2 IgG Ab Crossmatch 08/26/20 08/27/20 08/27/20 12:20 16:06 21:40 WBC RBC Hgb Hct MCV MCH MCHC RDW Lymph % (Auto) Walker % (Auto) Lymph # (Auto) Walker # (Auto) Baso # (Auto) Seg Neutrophils % Seg Neuts % (Manual) Lymphocytes % (Manual) Nucleated RBC % Seg Neutrophils # Seg Neutrophils # Man Lymphocytes # (Manual) Monocytes # (Manual) Eosinophils # (Manual) PT INR APTT D-Dimer Heparin Anti-Xa Level ABG pH POC ABG pCO2 POC ABG pO2 ABG pO2 ABG HCO3 ABG O2 Saturation ABG Base Excess ABG Hemoglobin ABG Oxyhemoglobin ABG Sodium ABG Potassium ABG Chloride ABG Glucose Oxyhemoglobin Carboxyhemoglobin Sodium Potassium Chloride Carbon Dioxide BUN Creatinine Glucose POC Glucose 132 H 107 H 115 H Hemoglobin A1c Lactic Acid Calcium Phosphorus Magnesium Ferritin Total Bilirubin Direct Bilirubin AST ALT Alkaline Phosphatase Lactate Dehydrogenase C-Reactive Protein Total Protein Albumin Triglycerides Lipase Arterial Blood Glucose Arterial Blood Ionized Calcium Urine WBC (Auto) Coronavirus (PCR) SARS-CoV-2 IgG Ab Crossmatch 08/28/20 08/29/20 08/29/20 20:46 16:58 20:52 WBC RBC Hgb Hct MCV MCH MCHC RDW Lymph % (Auto) Walker % (Auto) Lymph # (Auto) Walker # (Auto) Baso # (Auto) Seg Neutrophils % Seg Neuts % (Manual) Lymphocytes % (Manual) Nucleated RBC % Seg Neutrophils # Seg Neutrophils # Man Lymphocytes # (Manual) Monocytes # (Manual) Eosinophils # (Manual) PT INR APTT D-Dimer Heparin Anti-Xa Level ABG pH POC ABG pCO2 POC ABG pO2 ABG pO2 ABG HCO3 ABG O2 Saturation ABG Base Excess ABG Hemoglobin ABG Oxyhemoglobin ABG Sodium ABG Potassium ABG Chloride ABG Glucose Oxyhemoglobin Carboxyhemoglobin Sodium Potassium Chloride Carbon Dioxide BUN Creatinine Glucose POC Glucose 107 H 115 H 128 H Hemoglobin A1c Lactic Acid Calcium Phosphorus Magnesium Ferritin Total Bilirubin Direct Bilirubin AST ALT Alkaline Phosphatase Lactate Dehydrogenase C-Reactive Protein Total Protein Albumin Triglycerides Lipase Arterial Blood Glucose Arterial Blood Ionized Calcium Urine WBC (Auto) Coronavirus (PCR) SARS-CoV-2 IgG Ab Crossmatch 08/30/20 09:56 WBC RBC Hgb Hct MCV MCH MCHC RDW Lymph % (Auto) Walker % (Auto) Lymph # (Auto) Walker # (Auto) Baso # (Auto) Seg Neutrophils % Seg Neuts % (Manual) Lymphocytes % (Manual) Nucleated RBC % Seg Neutrophils # Seg Neutrophils # Man Lymphocytes # (Manual) Monocytes # (Manual) Eosinophils # (Manual) PT INR APTT D-Dimer Heparin Anti-Xa Level ABG pH POC ABG pCO2 POC ABG pO2 ABG pO2 ABG HCO3 ABG O2 Saturation ABG Base Excess ABG Hemoglobin ABG Oxyhemoglobin ABG Sodium ABG Potassium ABG Chloride ABG Glucose Oxyhemoglobin Carboxyhemoglobin Sodium Potassium Chloride Carbon Dioxide BUN Creatinine Glucose POC Glucose Hemoglobin A1c 6.1 H Lactic Acid Calcium Phosphorus Magnesium Ferritin Total Bilirubin Direct Bilirubin AST ALT Alkaline Phosphatase Lactate Dehydrogenase C-Reactive Protein Total Protein Albumin Triglycerides Lipase Arterial Blood Glucose Arterial Blood Ionized Calcium Urine WBC (Auto) Coronavirus (PCR) SARS-CoV-2 IgG Ab Crossmatch Allied health notes reviewed: nursing
== END 2020-08-30 12:15 | DRG 870 ==
LOC: ED 12:15 → 3A 15:13 → IMCU 05-12 05:23 → CC1 05-21 20:29 → IMCU 07-16 19:09 → 4A 07-27 01:13
PROVIDERS: ADMIT Internal Medicine; ATTEND Internal Medicine
PROC: 5A09557 Assistance with Respiratory Ventilation, Greater than 96 Consecutive Hours, Continuous Positive Airway Pressure (ICD-10-PCS; 2020-05-13)
PROC: 4A033R1 Measurement of Arterial Saturation, Peripheral, Percutaneous Approach (ICD-10-PCS; 2020-05-21)
PROC: 0BH17EZ Insertion of Endotracheal Airway into Trachea, Via Natural or Artificial Opening (ICD-10-PCS; principal; 2020-05-22)
PROC: 0W9930Z Drainage of Right Pleural Cavity with Drainage Device, Percutaneous Approach (ICD-10-PCS; 2020-06-21)
PROC: 30233N1 Transfusion of Nonautologous Red Blood Cells into Peripheral Vein, Percutaneous Approach (ICD-10-PCS; 2020-07-01)
PROC: 5A1955Z Respiratory Ventilation, Greater than 96 Consecutive Hours (ICD-10-PCS; 2020-07-01)
PROC: 0WP9X0Z Removal of Drainage Device from Right Pleural Cavity, External Approach (ICD-10-PCS; 2020-08-05)
PROC: XW033E5 Introduction of Remdesivir Anti-infective into Peripheral Vein, Percutaneous Approach, New Technology Group 5 (ICD-10-PCS; 2020-08-19)
DX: A41.89 Other specified sepsis (principal); U07.1 COVID-19; J96.01 Acute respiratory failure with hypoxia; N17.0 Acute kidney failure with tubular necrosis; R65.21 Severe sepsis with septic shock; J12.82 Pneumonia due to coronavirus disease 2019; J93.83 Other pneumothorax; F10.20 Alcohol dependence, uncomplicated; K63.89 Other specified diseases of intestine; D64.9 Anemia, unspecified; E87.6 Hypokalemia; E66.9 Obesity, unspecified; Z82.49 Family history of ischemic heart disease and other diseases of the circulatory system; Z83.3 Family history of diabetes mellitus; Z79.899 Other long term (current) drug therapy; Z68.30 Body mass index [BMI] 30.0-30.9, adult
CPT/HCPCS: 36415; 36600; 70450; 71045; 71046; 71275; 74018; 80048; 80053; 80076; 80320; 81001; 82140; 82270; 82728; 82803; 82805; 82947; 82962; 83036; 83615; 83690; 83735; 84100; 84132; 84145; 84478; 84484; 85007; 85014; 85018; 85025; 85027; 85049; 85379; 85520; 85610; 85730; 86140; 86705; 86709; 86850; 86900; 86901; 86920; 87040; 87076; 87086; 87205; 87517; 90686; 93005; 93306; 93970; 94002; 94003; 94640; 94660; 94760; 96374; 96375; G0378; A6250; C9113; G0480; J0456; J0692; J0696; J1100; J1120; J1644; J1650; J1815; J2060; J2250; J2405; J2704; J2765; J2920; J3010; J3475; J3480; J3490; J7030; J7040; J7050; J7512; P9016; Q9967; U0003

== ENCOUNTER 2021-01-04 13:13 | Outpatient (CLI) | payer BC ==
[2021-01-04 14:23] LABS: Hematocrit 40.3 % (35.5-45.6); Hemoglobin 13.5 gm/dl (11.8-15.2); Mean Corpuscular HGB Conc 33 % (32-34); Mean Corpuscular Volume 95 fl (84-94); Platelet Count 217 K/mm3 (140-440); Red Blood Count 4.25 M/mm3 (3.65-5.03); Red Cell Distribution Width 13.5 % (13.2-15.2)
--- NOTE | 2021-01-04 14:36 | XRay Report ---
CHEST 2 VIEWS INDICATION: [id number]. COMPARISON: 08/11/2020 FINDINGS: Support devices: None. Heart: Within normal limits. Lungs/pleura: Near complete resolution of the scattered bilateral lung opacities is demonstrated. The re does appear to be mild interstitial prominence remaining in both lungs but no evidence for pneumon ia, pleural effusion or pneumothorax. Additional findings: None. IMPRESSION: Bilateral lung opacities have nearly resolved. There does appear to be minimal interstitial prominenc e in the lungs bilaterally in a distribution similar to the previously described lung opacities. I qu estion if this could represent chronic sequela of Covid. No new acute process is demonstrated. Signer Name: Bautista Jennings Jr, MD Signed: 01/04/2021 2:31 PM Workstation Name: [id number]
[2021-01-04 14:42] LABS: ABG Base Excess 4.8 mmol/L (-2.0-3.0); ABG HCO3 29.5 mmol/L (20.0-26.0); ABG Methemoglobin 0.5 % (0.0-1.5); ABG Oxygen Saturation 99.1 % (95.0-99.0); ABG PCO2 43.8 mm Hg; ABG PH 7.446 pH Units (7.350-7.450); ABG PO2 176.9 mm Hg (80.0-90.0)
[2021-01-04 14:48] LABS: Alanine Aminotransferase 8 units/L (7-56); Albumin 4.3 g/dL (3.9-5); BUN/Creatinine Ratio 9; Blood Urea Nitrogen 9 mg/dL (9-20); Calcium 10.1 mg/dL (8.4-10.2); Hemolysis Index 5
== END 2021-01-04 13:14 | disposition home or self-care (01) ==
LOC: LAB 13:13
PROVIDERS: ATTEND Internal Medicine
DX: I26.99 Other pulmonary embolism without acute cor pulmonale (principal); I82.409 Acute embolism and thrombosis of unspecified deep veins of unspecified lower extremity; E11.9 Type 2 diabetes mellitus without complications; D64.9 Anemia, unspecified; M19.90 Unspecified osteoarthritis, unspecified site; J12.82 Pneumonia due to coronavirus disease 2019
CPT/HCPCS: 36415; 36600; 71046; 80053; 82550; 82728; 82803; 83615; 85027; 85379; 86140

== ENCOUNTER 2021-03-09 11:18 | Outpatient (CLI) | payer BC ==
[2021-03-09 11:58] LABS: ABG Base Excess -0.7 mmol/L (-2.0-3.0); ABG HCO3 23.9 mmol/L (20.0-26.0); ABG Methemoglobin 0.5 % (0.0-1.5); ABG Oxygen Saturation 94.7 % (95.0-99.0); ABG PCO2 39.2 mm Hg; ABG PH 7.402 pH Units (7.350-7.450); ABG PO2 71.8 mm Hg (80.0-90.0)
[2021-03-09 12:13] LABS: BUN/Creatinine Ratio 13; Blood Urea Nitrogen 14 mg/dL (9-20); Calcium 9.6 mg/dL (8.4-10.2); Hemolysis Index 3
== END 2021-03-09 11:19 | disposition home or self-care (01) ==
LOC: LAB 11:18
PROVIDERS: ATTEND Internal Medicine
DX: R94.2 Abnormal results of pulmonary function studies (principal); I26.99 Other pulmonary embolism without acute cor pulmonale; I82.409 Acute embolism and thrombosis of unspecified deep veins of unspecified lower extremity; Z86.16 Personal history of COVID-19
CPT/HCPCS: 36415; 80048; 82803

== ENCOUNTER 2021-11-03 07:25 | Outpatient (CLI) | payer BC ==
--- NOTE | 2021-11-03 10:27 | Fluoroscopy Report ---
UPPER GI HISTORY: K21.9 CHRONIC COUGH. TECHNIQUE: Single and double contrast barium technique utilized to evaluate the esophagus, stomach, and duodenal C-loop. FINDINGS: To begin the exam, swallowing was evaluated in the lateral position under direct fluorosco py. Swallowing was normal. No mucosal irregularity, mass, mass effect, or critical stenosis. There were no abnormal tertiary c ontractions as seen with dysmotility. Occasional episodes of gastroesophageal reflux to the mid to up per esophagus was witnessed during this exam. No hiatal hernia. IMPRESSION: [id number] gastroesophageal reflux was witnessed. Otherwise unremarkable upper GI. Fluoroscopic time: 2 minutes Number of fluoroscopic images: 23 Signer Name: Bautista Jennings Jr, MD Signed: 11/03/2021 10:23 AM Workstation Name: [id number]
== END 2021-11-03 07:26 | disposition home or self-care (01) ==
LOC: FLUORO 07:25
PROVIDERS: ATTEND Internal Medicine
DX: K21.9 Gastro-esophageal reflux disease without esophagitis (principal); R05.9 Cough, unspecified
CPT/HCPCS: 74246